=== PATIENT | female | born 1955 | race Caucasian/White ===

== ENCOUNTER 2016-10-28 23:44 | Emergency (ER) | payer MEDICARE ==
[~2016-10-28] VITALS: Ht 175.3 cm; Wt 78.9 kg
[~2016-10-28 23:44] MED LIST: ATIVAN0.5 MG PO; CALCIUM500 MG PO; CEFPODOXIME PR200 MG PO; CIPROFLOXACIN500 MG PO; COUMADIN5 MG; COUMADIN5 MG PO; COUMADIN6 MG PO; CYANOCOBAL1000 MCG/M IM; DIFLUCAN150 MG PO; FLAGYL500 MG PO; FLUCONAZOLE150 MG PO; FUROSEMIDE20 MG PO; GABAPENTIN300 MG PO; HUMIRA40 MG/0.8 SUB-Q; KEFLEX500 MG PO; KLOR-CON 1010 MEQ PO; KLOR-CON20 MEQ PO; LASIX20 MG PO; LEVAQUIN500 MG PO; LEVAQUIN750 MG PO; LEVOFLOXACIN500 MG PO; LIDOCAINE HCL100 ML MT; LIDOCAINE PO; LISINOPRIL20 MG PO; LOPRESSOR PO; LORAZEPAM0.5 MG PO; LOVENOX30 MG SUB-Q; LOVENOX80 MG SUB-Q; MACRODANTIN100 MG PO; METOPROLOL TART25 MG PO; METOPROLOL TART50 MG PO; METRONIDAZOLE500 MG PO; MORPHINE SULFAT15 M1 PO; MORPHINE SULFAT15 MG PO; MORPHINE SULFAT30 M2 PO; NICORETTE2 MG MM; NICOTINE PATCH1 EAC1 TD; NICOTINE PATCH1 EACH TD; NITROFURANTOIN100 M1 PO; NYSTATIN15 GM TOP; OMEPRAZOLE40 MG PO; ORAL ANALGESIC9 GM MT; OXYCODON-ACETA1 EAC2 PO; OXYCONTIN10 MG PO; OXYCONTIN20 MG PO; PERCOCET 5-3251 EACH PO; PERCOCET 7.5-31 EACH PO; POTASSIUM CHLO20 ME1 PO; PREDNISONE10 MG PO; PREDNISONE20 MG PO; PRILOSEC40 MG PO; PRISTIQ ER50 MG PO; PROBIOTIC1 EAC1 PO; PROMETHAZINE HC25 M1 PO; PROMETHAZINE HC25 MG PR; QUESTRAN PACKET4 GM PO; REMICADE100 MG/10 IV; SULFAMETHOXAZO1 EAC1 PO; SULFAZINE500 MG PO; TAMSULOSIN HCL0.4 MG PO; TYLENOL325 MG PO; VITAMIN B125000 MCG IM; VITAMIN B125000 MCG PO/IV/IM; VITAMIN D1000 UNI1 PO; WARFARIN SODIUM6 MG PO; ZOFRAN ODT4 MG SL; [UNRECOGNIZED DRUG - OTHER] INJ
--- OUTSIDE RECORDS SUMMARY | 2016-10-29 02:05 | XMS ---
Demographics + + + | Address | [address] | | | [place] [address] | + + + | Preferred Language | Unknown | + + + | Marital Status | Unknown | + + + | Orthodoxy Affiliation | Unknown | + + + | Race | Unknown | + + + | Ethnic Group | Unknown | + + + Author + + + | Author | [facility] | + + + | Organization | [facility] | + + + | Address | [address] | | | [place] [address] | + + + | Phone | | + + + Care Team Providers + + + + | Care Veterinary Assistant Technician Name | Role | Phone | + + + + Unavailable | Unavailable | + + + + PROBLEMS +---------+ + + +--------+ + + | Type | Condition | ICD9-CM | [id number] | Onset | Condition | SNOMED | | | | Code | Code | Dates | Status | Code | +---------+ + + +--------+ + + | Problem | Essential | | I10 | | Active | [id number] | | | (primary) | | | | | | | | hypertensi | | | | | | | | on | | | | | | +---------+ + + +--------+ + + ALLERGIES + + + + +--------+ | Substance | Reaction | Event Type | Date | Status | + + + + +--------+ | Penicillin | GI UPSET | Drug Allergy | Oct, | Active | + + + + +--------+ | Reglan | hyper | Drug Allergy | Oct, | Active | + + + + +--------+ | Erythromycin | Unknown | Drug Allergy | Oct, | Active | + + + + +--------+ | Dilaudid | Unknown | Drug Allergy | Oct, | Active | + + + + +--------+ | Demerol | vomiting | Drug Allergy | Oct, | Active | + + + + +--------+ SOCIAL HISTORY No smoking Hx information available PLAN OF CARE + +---------+ | Activity | Details | + +---------+ +---+ | | +---+ + + + | Follow Up | 2 Months Reason:null | + + + VITAL SIGNS + + + + | Height | 69 in | 2016-10-20 | + + + + | Weight | 173.2 lbs | 2016-10-20 | + + + + | BMI | 25.57 kg/m2 | 2016-10-20 | + + + + | Temperature | 98.4 degrees Fahrenheit | 2016-10-20 | + + + + | Heart Rate | 91 /min | 2016-10-20 | + + + + | Blood pressure systolic | 142 mm Hg | 2016-10-20 | + + + + | Blood pressure diastolic | 80 mm Hg | 2016-10-20 | + + + + MEDICATIONS + + + + + + + +--------+ | Medicati | Instruct | Dosage | Frequenc | Start | End Date | Duration | Status | | on | ions | | y | Date | | | | + + + + + + + +--------+ | Prometha | | take 1 | | | | 30 | Active | | zine HCl | | tablet | | | | | | | 25 MG | | by mouth | | | | | | | | | three | | | | | | | | | times a | | | | | | | | | day if | | | | | | | | | needed | | | | | | | | | for | | | | | | | | | nausea | | | | | | + + + + + + + +--------+ | Cyanocob | | INJEC 1 | | | | 30 | Active | | alamin | | ML ONCE | | | | | | | 1000 | | EACH | | | | | | | MCG/ML | | MONTH | | | | | | | | | | | | | | | | | | DIRECTED | | | | | | + + + + + + + +--------+ | Macrobid | Orally | 1 | 12h | 02 August, | 27 Apr, | 30 days | Active | | 100 MG | BID | capsule | | 2016 | 2018 | | | | | | with | | | | | | | | | food | | | | | | + + + + + + + +--------+ | Furosemi | Orally | 1 tablet | | | | 30 | Active | | de 20 mg | Once a | | | | | | | | | day, AM | | | | | | | + + + + + + + +--------+ | Metoprol | | take 1 | | | | 30 | Active | | ol | | 1/2 | | | | | | | Tartrate | | tablets | | | | | | | 25 MG | | by mouth | | | | | | | | | twice a | | | | | | | | | day | | | | | | + + + + + + + +--------+ | Omeprazo | | take 1 | | | | 30 | Active | | le 40 MG | | capsule | | | | | | | | | by mouth | | | | | | | | | twice a | | | | | | | | | day | | | | | | + + + + + + + +--------+ | Cefpodox | Orally | 1 tablet | 12h | | | | Active | | eugenio | every 12 | | | | | | | | Proxetil | hrs | | | | | | | | 200 MG | | | | | | | | + + + + + + + +--------+ | Humira | | | | | | | Active | + + + + + + + +--------+ | Mouthwas | | | | | | | Active | | h | | | | | | | | + + + + + + + +--------+ | Percocet | Orally | 2 tablet | | 04 September, | | | Active | | 10-325 | every 8 | | | 2014 | | | | | MG | hrs | | | | | | | + + + + + + + +--------+ | Depend | topical | lin | | Nov, | | 30 | Active | | Easy Fit | q 4 hr | | | 2015 | | | | | | | | | | | | | | Undergar | | | | | | | | | ments | | | | | | | | | large | | | | | | | | | pullups | | | | | | | | + + + + + + + +--------+ | KCL 20 | orally 3 | 1 tablet | | 06 Sep, | | 30 | Active | | mEq | x day | | | 2012 | | | | + + + + + + + +--------+ | Fluconaz | po q day | take 1 | | | | 7 d | Active | | ole 150 | | tablet | | | | | | | MG | | by mouth | | | | | | | | | once | | | | | | | | | daily | | | | | | | | | for 7 | | | | | | | | | days | | | | | | + + + + + + + +--------+ | Warfarin | po in pm | take 2 | | | | 30 | Active | | Sodium | | tablet | | | | | | | 1 MG | | by mouth | | | | | | | | | once | | | | | | | | | daily | | | | | | + + + + + + + +--------+ | PredniSO | | take 1 | | | | 30 | Active | | NE 10 MG | | and 1/2 | | | | | | | | | tablets | | | | | | | | | by mouth | | | | | | | | | once | | | | | | | | | daily | | | | | | + + + + + + + +--------+ RESULTS + +--------+ + + | Name | Result | Date | Reference Range | + +--------+ + + | Sedimentation | | 2016-10-20 | | | Rate-Westergren | | | | + +--------+ + + | Sedimentation | | | | | Rate-Westergren | | | | + +--------+ + + | Comp. Metabolic | | 2016-10-20 | | | Panel (14) | | | | + +--------+ + + | Calcium, Serum | | | | + +--------+ + + | Glucose, Serum | | | | + +--------+ + + | BUN | | | | + +--------+ + + | Protein, Total, | | | | | Serum | | | | + +--------+ + + | Albumin, Serum | | | | + +--------+ + + | Bilirubin, Total | | | | + +--------+ + + | Alkaline | | | | | Phosphatase, S | | | | + +--------+ + + | AST (SGOT) | | | | + +--------+ + + | Potassium, Serum | | | | + +--------+ + + | Sodium, Serum | | | | + +--------+ + + | Chloride, Serum | | | | + +--------+ + + | Creatinine, Serum | | | | + +--------+ + + | ALT (SGPT) | | | | + +--------+ + + | Carbon Dioxide, | | | | | Total | | | | + +--------+ + + | BUN/Creatinine | | | | | Ratio | | | | + +--------+ + + | Globulin, Total | | | | + +--------+ + + | A/G Ratio | | | | + +--------+ + + | CBC | | 2016-10-20 | | + +--------+ + + | WBC | | | | + +--------+ + + | RBC | | | | + +--------+ + + | HEMOGLOBIN | | | | + +--------+ + + | HEMATOCRIT | | | | + +--------+ + + | MCV | | | | + +--------+ + + | MCH | | | | + +--------+ + + | MCHC | | | | + +--------+ + + | RDW | | | | + +--------+ + + | LYMPHOCYTES | | | | + +--------+ + + | NEUTROPHILS | | | | + +--------+ + + | BANDS | | | | + +--------+ + + | MONOCYTES | | | | + +--------+ + + | EOSINOPHILS | | | | + +--------+ + + | BASOPHILS | | | | + +--------+ + + | OTHER | | | | + +--------+ + + | PLATELET COUNT | | | | + +--------+ + + PROCEDURES + + + + + | Procedure | Date Ordered | Related Diagnosis | Body Site | + + + + + | Office Visit, Est | October 20, 2016 | | | | Pt., Level 3 | | | | + + + + + IMMUNIZATIONS No Known Immunizations"
[2016-10-29] MEDS ORDERED: TRAMADOL HCL E100 MG PO (17:07)
[2016-10-29] MEDS ORDERED: KEFLEX500 MG PO (20:01)
[2016-12-30] MEDS ORDERED: K-TAB ER20 MEQ PO (15:01)
[2016-12-30] MEDS ORDERED: NYSTATIN15 G1 TOP (15:02)
== END 2016-10-29 06:10 | disposition home or self-care (01) ==
LOC: ED 23:44
DX: F11.23 Opioid dependence with withdrawal (principal); R11.10 Vomiting, unspecified; R19.7 Diarrhea, unspecified; Z87.440 Personal history of urinary (tract) infections; I10 Essential (primary) hypertension; F17.200 Nicotine dependence, unspecified, uncomplicated; Z90.710 Acquired absence of both cervix and uterus; Z90.49 Acquired absence of other specified parts of digestive tract; Z88.0 Allergy status to penicillin; Z88.1 Allergy status to other antibiotic agents; Z88.5 Allergy status to narcotic agent; Z79.899 Other long term (current) drug therapy; Z79.01 Long term (current) use of anticoagulants; Z79.52 Long term (current) use of systemic steroids; Z79.891 Long term (current) use of opiate analgesic
CPT/HCPCS: 80053; 85025; 96361; 96374; 96375; 96376; 99283; J2270; J2550; J7030

== ENCOUNTER 2016-10-29 16:46 | Emergency (ER) | payer MEDICARE ==
[~2016-10-29] VITALS: Ht 175.3 cm; Wt 79.0 kg
[2016-10-29] MEDS ORDERED: TRAMADOL HCL E100 MG PO (17:07)
[2016-10-29] MEDS ORDERED: KEFLEX500 MG PO (20:01)
[2016-12-30] MEDS ORDERED: K-TAB ER20 MEQ PO (15:01)
[2016-12-30] MEDS ORDERED: NYSTATIN15 G1 TOP (15:02)
== END 2016-10-29 20:44 | disposition home or self-care (01) ==
LOC: ED 16:46
DX: N39.0 Urinary tract infection, site not specified (principal); R19.7 Diarrhea, unspecified; G89.29 Other chronic pain; I10 Essential (primary) hypertension; F17.200 Nicotine dependence, unspecified, uncomplicated; Z90.710 Acquired absence of both cervix and uterus; Z90.49 Acquired absence of other specified parts of digestive tract; Z88.0 Allergy status to penicillin; Z88.1 Allergy status to other antibiotic agents; Z88.8 Allergy status to other drugs, medicaments and biological substances; Z79.899 Other long term (current) drug therapy; Z79.01 Long term (current) use of anticoagulants; Z79.52 Long term (current) use of systemic steroids
CPT/HCPCS: 81001; 87077; 87088; 87186; 96372; 99283; J0696

== ENCOUNTER 2016-11-11 07:43 | Emergency (ER) | payer MEDICARE ==
[~2016-11-11] VITALS: Ht 175.3 cm; Wt 77.1 kg
[~2016-11-11 07:43] MED LIST changes: +TRAMADOL HCL E100 MG PO
[2016-11-11] MEDS ORDERED: TRAMADOL HCL50 MG PO (07:53)
[2016-11-11] MEDS ORDERED: XIFAXAN550 MG PO (10:28)
[2016-12-30] MEDS ORDERED: K-TAB ER20 MEQ PO (15:01)
[2016-12-30] MEDS ORDERED: NYSTATIN15 G1 TOP (15:02)
== END 2016-11-11 11:43 | disposition home or self-care (01) ==
LOC: ED 07:43
DX: K52.9 Noninfective gastroenteritis and colitis, unspecified (principal); I10 Essential (primary) hypertension; F17.200 Nicotine dependence, unspecified, uncomplicated; Z90.710 Acquired absence of both cervix and uterus; Z90.49 Acquired absence of other specified parts of digestive tract; Z88.0 Allergy status to penicillin; Z88.8 Allergy status to other drugs, medicaments and biological substances; Z88.1 Allergy status to other antibiotic agents; Z88.5 Allergy status to narcotic agent; Z79.899 Other long term (current) drug therapy; Z79.891 Long term (current) use of opiate analgesic; Z79.01 Long term (current) use of anticoagulants
CPT/HCPCS: 80053; 85025; 96361; 96374; 96375; 96376; 99283; J2550; J7030

== ENCOUNTER 2016-12-23 10:43 | Emergency (ER) | payer MEDICARE ==
[~2016-12-23] VITALS: Ht 175.3 cm; Wt 77.1 kg
[~2016-12-23 10:43] MED LIST changes: +TRAMADOL HCL50 MG PO; +XIFAXAN550 MG PO
--- OUTSIDE RECORDS SUMMARY | 2016-12-23 11:01 | XMS ---
Demographics + + + | Address | [address] | | | [place] [address] | + + + | Preferred Language | Unknown | + + + | Marital Status | Unknown | + + + | Restoration Affiliation | Unknown | + + + | Race | Unknown | + + + | Ethnic Group | Unknown | + + + Author + + + | Author | [facility] | + + + | Organization | [facility] | + + + | Address | [address] | | | [place] [address] | + + + | Phone | | + + + Care Team Providers + + + + | Care Aircrewman Name | Role | Phone | + + + + Unavailable | Unavailable | + + + + PROBLEMS +---------+ + + +--------+ + + | Type | Condition | ICD9-CM | [id number] | Onset | Condition | SNOMED | | | | Code | Code | Dates | Status | Code | +---------+ + + +--------+ + + | Problem | Essential | | I10 | | Active | [id number] | | | (primary) | | | | | | | | hypertensi | | | | | | | | on | | | | | | +---------+ + + +--------+ + + ALLERGIES Unknown Allergies SOCIAL HISTORY No smoking Hx information available PLAN OF CARE VITAL SIGNS MEDICATIONS Unknown Medications RESULTS No Results PROCEDURES No Known procedures IMMUNIZATIONS No Known Immunizations"
--- OUTSIDE RECORDS SUMMARY | 2016-12-23 11:01 | XMS ---
Demographics + + + | Address | [address] | | | [place] [address] | + + + | Preferred Language | Unknown | + + + | Marital Status | Unknown | + + + | Lutheran Affiliation | Unknown | + + + | Race | Unknown | + + + | Ethnic Group | Unknown | + + + Author + + + | Author | [facility] | + + + | Organization | [facility] | + + + | Address | [address] | | | [place] [address] | + + + | Phone | | + + + Care Team Providers + + + + | Care Value Engineer Name | Role | Phone | + + + + Unavailable | Unavailable | + + + + PROBLEMS +---------+ + + +--------+ + + | Type | Condition | ICD9-CM | [id number] | Onset | Condition | SNOMED | | | | Code | Code | Dates | Status | Code | +---------+ + + +--------+ + + | Problem | Essential | | I10 | | Active | [id number] | | | (primary) | | | [...]
--- OUTSIDE RECORDS SUMMARY | 2016-12-23 11:01 | XMS ---
Demographics + + + | Address | [address] | | | [place] [address] | + + + | Preferred Language | Unknown | + + + | Marital Status | Unknown | + + + | Catholic Affiliation | Unknown | + + + | Race | Unknown | + + + | Ethnic Group | Unknown | + + + Author + + + | Author | [facility] | + + + | Organization | [facility] | + + + | Address | [address] | | | [place] [address] | + + + | Phone | | + + + Care Team Providers + + + + | Care Laborer Dairy Farm Name | Role | Phone | + + + + Unavailable | Unavailable | + + + + PROBLEMS +---------+ + + +--------+ + + | Type | Condition | ICD9-CM | [id number] | Onset | Condition | SNOMED | | | | Code | Code | Dates | Status | Code | +---------+ + + +--------+ + + | Problem | Essential | | I10 | | Active | [id number] | | | (primary) | | | [...] | GI UPSET | Drug Allergy | Nov, | Active | + + + + +--------+ | Reglan | hyper | Drug Allergy | Nov, | Active | + + + + +--------+ | Erythromycin | Unknown | Drug Allergy | Nov, | Active | + + + + +--------+ | Dilaudid | Unknown | Drug Allergy | Nov, | Active | + + + + +--------+ | Demerol | vomiting | Drug Allergy | Nov, | Active | + + + + +--------+ SOCIAL HISTORY No smoking Hx information available PLAN OF CARE + +---------+ | Activity | Details | + +---------+ +---+ | | +---+ + + + | Follow Up | 12/30/2016 at 2:00pm Reason:null | + + + VITAL SIGNS + + + + | Height | 69 in | 2016-12-08 | + + + + | Weight | 177.8 lbs | 2016-12-08 | + + + + | BMI | 26.25 kg/m2 | 2016-12-08 | + + + + | Temperature | 98.7 degrees Fahrenheit | 2016-12-08 | + + + + | Heart Rate | 81 /min | 2016-12-08 | + + + + | Blood pressure systolic | 136 mm Hg | 2016-12-08 | + + + + | Blood pressure diastolic | 78 mm Hg | 2016-12-08 | + + + + MEDICATIONS + [...] Depend | topical | lin | | 11 Nov, | | 30 | Active | | Easy Fit | q 4 hr | | | 2016 | | | | | | | [...] 3 | 1 tablet | | 06 Prashanth, | | 30 | Active | | mEq | x day | | | 2013 | | | | + + + [...] + + + + + +--------+ | B-12 | | | | | | | [...] + + + + + +--------+ | Opium | Orally | 5 ml as | 24h | | | | Active | | Tincture | Once a | needed | | | | | | | | day | | | | | | | | (Paregor | | | | | | | | | ic) 2 | | | | | | | | | MG/5ML | | | | | | | [...] + + + + + +--------+ | Gabapent | Orally | 1 tablet | 8h | | | | Active | | in 600 | Three | | | | | | | | MG | times a | | | | | | | | | day | | | | | | | [...] + + + + + +--------+ RESULTS No Results PROCEDURES + + + + + | Procedure | Date Ordered | Related Diagnosis | Body Site | + + + + + | Office Visit, Est | Dec 08, 2016 | | | | Pt., Level 3 | | | | + + + + + IMMUNIZATIONS No Known Immunizations"
--- OUTSIDE RECORDS SUMMARY | 2016-12-23 11:01 | XMS ---
Demographics + + + | Address | [address] | | | [place] [address] | + + + | Preferred Language | Unknown | + + + | Marital Status | Unknown | + + + | Baptism Affiliation | Unknown | + + + | Race | Unknown | + + + | Ethnic Group | Unknown | + + + Author + + + | Author | [facility] | + + + | Organization | [facility] | + + + | Address | [address] | | | [place] [address] | + + + | Phone | | + + + Care Team Providers + + + + | Care Strapper Operator Name | Role | Phone | + + + + Unavailable | Unavailable | + + + + PROBLEMS +---------+ + + +--------+ + + | Type | Condition | ICD9-CM | [id number] | Onset | Condition | SNOMED | | | | Code | Code | Dates | Status | Code | +---------+ + + +--------+ + + | Problem | Essential | | I10 | | Active | [id number] | | | (primary) | | | [...]
[2016-12-23] MEDS ORDERED: NITROFURANTOIN100 MG PO (13:54)
[2016-12-23] MEDS ORDERED: OXYCONTIN10 MG PO (14:08)
[2016-12-23] MEDS ORDERED: OPIUM10 MG/1 ML PO (14:08)
[2016-12-30] MEDS ORDERED: K-TAB ER20 MEQ PO (15:01)
[2016-12-30] MEDS ORDERED: NYSTATIN15 G1 TOP (15:02)
== END 2016-12-23 14:30 | disposition home or self-care (01) ==
LOC: ED 10:43
DX: K50.90 Crohn's disease, unspecified, without complications (principal); N39.0 Urinary tract infection, site not specified; G89.29 Other chronic pain; I10 Essential (primary) hypertension; F17.200 Nicotine dependence, unspecified, uncomplicated; Z90.710 Acquired absence of both cervix and uterus; Z90.81 Acquired absence of spleen; Z88.5 Allergy status to narcotic agent; Z88.0 Allergy status to penicillin; Z88.8 Allergy status to other drugs, medicaments and biological substances; Z79.899 Other long term (current) drug therapy; Z79.891 Long term (current) use of opiate analgesic; Z79.01 Long term (current) use of anticoagulants
CPT/HCPCS: 80053; 81001; 83605; 83690; 85025; 87077; 87088; 87186; 96361; 96374; 96375; 96376; 99284; J0696; J1200; J1885; J2405; J2550; J7030

== ENCOUNTER 2017-02-11 14:16 | Emergency (ER) | payer MEDICARE ==
[~2017-02-11] VITALS: Ht 175.3 cm; Wt 73.5 kg
[~2017-02-11 14:16] MED LIST changes: +K-TAB ER20 MEQ PO; +NITROFURANTOIN100 MG PO; +NYSTATIN15 G1 TOP; +OPIUM10 MG/1 ML PO
--- OUTSIDE RECORDS SUMMARY | 2017-02-11 17:53 | XMS | Clinical Summary ---
Demographics + + + | Address | [address] | | | [place] [address] | + + + | Home Phone | | + + + | Preferred Language | Unknown | + + + | Marital Status | | + + + | Alevism Affiliation | NRP | + + + | Race | White | + + + | Ethnic Group | Not or | + + + Author + + + | Author | [facility] | + + + | Organization | [facility] | + + + | Address | Unknown | + + + | Phone | Unavailable | + + + Support + + + + + | Name | Relationship | Address | Phone | + + + + + | , Kole Willingham | ECON | [address] | | | | | [place] | | | | | [address] | | + + + + + | Digna Dea | ECON | Unknown | | + + + + + Care Team Providers + +------+-------+ | Care Health Equipment Servicer Name | Role | Phone | + +------+-------+ | Aren Rose DO | PP | tel | + +------+-------+ Source Comments ARTUR is fully live on both EpicCare Ambulatory and EpicCare InPatient.[facility] Allergies + + + + + + | Active Allergy | Reactions | Severity | Noted | Comments | | | | | Date | | + + + + + + | Meperidine (Pf) | | | 03/12/20 | N/V | | | | | 12 | | + + + + + + | Erythromycin | | | 03/12/20 | N/V | | | | | 12 | | + + + + + + | Levofloxacin | | | 03/12/20 | Pt reportedly had | | | | | 12 | tendonitis with | | | | | | therapy. However, | | | | | | had a retrial and | | | | | | had no problems | + + + + + + | Penicillin G | | | 03/12/20 | N/V with oral | | | | | 12 | therapy | + + + + + + | Metoclopramide Hcl | | | 03/12/20 | Pt states she gets | | | | | 12 | wired | + + + + + + Current Medications + + +--------+---------+------+------+-------+ | Prescription | Sig. | Disp. | Refills | Star | End | Statu | | | | | | t | Date | s | | | | | | Date | | | + + +--------+---------+------+------+-------+ | acetaminophen 325 | 2 tablets by feeding | | | 02/0 | | Activ | | mg oral tablet | tube route every | | | 2/20 | | e | | | six hours. | | | 15 | | | + + +--------+---------+------+------+-------+ | metoprolol | 0.75 tablets by | 60 | 3 | 02/0 | | Activ | | tartrate 50 mg oral | feeding tube route | tablet | | 2/20 | | e | | tablet | two times daily. | | | 15 | | | + + +--------+---------+------+------+-------+ | warfarin 7.5 mg | 1 tablet by feeding | 60 | 1 | 02/0 | | Activ | | oral tablet | tube route once | tablet | | 2/20 | | e | | | daily in the | | | 15 | | | | | evening. | | | | | | + + +--------+---------+------+------+-------+ | omeprazole 40 mg | Take 40 mg by mouth | | | | | Activ | | oral capsule,delayed | two times daily. | | | | | e | | | Indications: | | | | | | | release(DR/EC)Indica | GASTROESOPHAGEAL | | | | | | | tions: | REFLUX | | | | | | | gastroesophageal | | | | | | | | reflux disease | | | | | | | + + +--------+---------+------+------+-------+ | cyanocobalamin | 1,000 mcg. | | | | | Activ | | 1,000 mcg/mL | | | | | | e | | injection solution | | | | | | | + + +--------+---------+------+------+-------+ | lisinopril 20 mg | 20 mg. | | | 08/0 | | Activ | | oral tablet | | | | 2/20 | | e | | | | | | 15 | | | + + +--------+---------+------+------+-------+ | LORazepam 0.5 mg | 0.5 mg. | | | | | Activ | | oral tablet | | | | | | e | + + +--------+---------+------+------+-------+ | morphine 15 mg | 15 mg. | | | 08/0 | | Activ | | oral tablet | | | | 2/20 | | e | | | | | | 15 | | | + + +--------+---------+------+------+-------+ | potassium chloride | 20 mEq. If taking | | | | | Activ | | SR 20 mEq oral | lasix | | | | | e | | tablet,ER | | | | | | | | particles/crystals | | | | | | | + + +--------+---------+------+------+-------+ | predniSONE 10 mg | 15 mg. | | | | | Activ | | oral tablet | | | | | | e | + + +--------+---------+------+------+-------+ | promethazine 25 mg | 25 mg. 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 | + + + + + | Overview: Vaccinations given at [facility] pneumonia and flu and | | at [facility] HIB and meningeal coccal 04/25 | + + + + + | Urinary retention | 05/13/2014 | + + + | Hypokalemia | 03/21/2012 | + + + | Pulmonary infiltrates - bilateral, anterior - hemorrhage vs HCAP | 03/21/2012 | + + + | Sepsis (HCC) | 03/19/2012 | + + + + + | Overview: ICD10 | + + + + + | PFO (patent foramen ovale) | 03/16/2012 | + + + | Perirectal abscess | 03/14/2012 | + + + | Iron deficiency anemia | 03/14/2012 | + + + | Leukocytosis | 03/14/2012 | + + + | Thrombocytosis (HCC) | 03/14/2012 | + + + | Popliteal artery thrombosis, 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 | + + + | 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 - need to repeat in | 03/14/2012 | | 3months to confirm | | + + + | Occlusive thrombus | 03/14/2012 | + + + | Hypoalbuminemia | 03/14/2012 | + + + | Hypophosphatemia | 03/14/2012 | + + + | TIA (transient ischemic attack) | 03/14/2012 | + + + | Crohn's disease of both small and large intestine with | 03/12/2012 | | complication (HCC) | | + + + Immunizations + + + + | Name | Dates Previously Given | Next Due | + + + + | Hib-HbOC | 05/10/2014 | | + + + + | MCV4P | 05/10/2014 | | + + + + | Ppd (tuberculin | 03/29/2012 | | | Purified Protein | | | | Derivative) | | | + + + + Family History + + +------+ + | Medical History | Relation | Name | Comments | + + +------+ + | Cancer | Mother | | no colorectal disease in family | + + +------+ + | GI | Son | | Crohn's disease | + + +------+ + + +------+--------+ + | Relation | Name | Status | Comments | + +------+--------+ + | Mother | | | | + +------+--------+ + | Son | | | | + +------+--------+ + Social History + +-------+ +--------+------+ | Tobacco Use | Types | Packs/Day | Years | Date | | | | | Used | | + +-------+ +--------+------+ | Current Every Day | | 1 | 30 | | | Smoker | | | | | + +-------+ +--------+------+ + +---+---+---+ | Smokeless Tobacco: | | | | | Never Used | | | | + +---+---+---+ + + | Tobacco Cessation: Ready to Quit: No | | Comments: vaporizes | + + + + +---------+ + | Alcohol Use | Drinks/We | oz/Week | Comments | | | ek | | | + + +---------+ + | No | 0 | 0.0 | | | | Standard | | | | | drinks or | | | | | | | | | | equivalen | | | | | t | | | + + +---------+ + + + + | Sex Assigned at | Date Recorded | | | | + + + | Not on file | | + + + Last Filed Vital Signs + + + + | Vital Sign | Reading | Time Taken | + + + + | Blood Pressure | 135/69 | 07/28/2015 1:34 PM PDT | + + + + | Pulse | 92 | 07/28/2015 1:34 PM PDT | + + + + | Temperature | 36.8 C (98.2 F) | 07/28/2015 1:34 PM PDT | + + + + | Respiratory Rate | 16 | 07/28/2015 1:34 PM PDT | + + + + | Oxygen Saturation | 96% | 07/28/2015 1:34 PM PDT | + + + + | Inhaled Oxygen | - | - | | Concentration | | | + + + + | Weight | 83.2 kg (183 lb 8 | 07/28/2015 1:34 PM PDT | | | oz) | | + + + + | Height | 175.3 cm (5' 9") | 07/28/2015 1:34 PM PDT | + + + + | Body Mass Index | 27.1 | 07/28/2015 1:34 PM PDT | + + + + Plan of Treatment + + + + + | Health Maintenance | Due Date | Last Done | Comments | + + + + + | INFLUENZA VACCINE | | 04/14/2014 | | | (FLU SHOT) | 7 | | | + + + + + Results Not on filefrom Last 3 Months
== END 2017-02-11 18:45 | disposition short-term general hospital (02) ==
LOC: ED 14:16
PROC: 0T9B70Z Drainage of Bladder with Drainage Device, Via Natural or Artificial Opening (ICD-10-PCS; principal; 2017-02-11)
DX: N39.0 Urinary tract infection, site not specified (principal); K50.90 Crohn's disease, unspecified, without complications; I10 Essential (primary) hypertension; Z90.710 Acquired absence of both cervix and uterus; Z88.5 Allergy status to narcotic agent; Z88.0 Allergy status to penicillin; Z88.1 Allergy status to other antibiotic agents; Z79.01 Long term (current) use of anticoagulants; Z79.899 Other long term (current) drug therapy; Z79.891 Long term (current) use of opiate analgesic; Z79.52 Long term (current) use of systemic steroids; Z88.7 Allergy status to serum and vaccine
CPT/HCPCS: 51701; 74177; 80053; 81001; 83690; 85025; 87077; 87088; 87186; 96365; 96375; 99285; J1956; J2270; J2550; Q9967

== ENCOUNTER 2019-02-11 19:21 | Inpatient (IN) | payer MEDICARE ==
[~2019-02-11] VITALS: Ht 175.3 cm; Wt 59.8 kg
--- OUTSIDE RECORDS SUMMARY | ~2019-02-11 | XMS | Encounter Summary ---
Demographics + + + | Address | [address] | | | [place] [address] | + + + | Home Phone | | + + + | Preferred Language | Unknown | + + + | Marital Status | | + + + | Mormonism Affiliation | NRP | + + + | Race | White | + + + | Ethnic Group | Not or | + + + Author + + + | Author | [facility] | + + + | Organization | [facility] | + + + | Address | Unknown | + + + | Phone | Unavailable | + + + Support + + + + + | Name | Relationship | Address | Phone | + + + + + | Kole Willingham | [place] | [address] | | | | | [place], [place] | | | | | [address] | | + + + + + | Cami Sawyer | ECON | Unknown | | + + + + + Care Team Providers + +------+ + | Care President [employer] Name | Role | Phone | + +------+ + | Aren Rose DO | PCP | | + +------+ + Reason for Visit + + + | Reason | Comments | + + + | Referral To Surgery | | | - General | | + + + Encounter Details +--------+ + + + + | Date | Type | Department | Care Team | Description | +--------+ + + + + | 07/24/ | Abstract | [facility] | Clinic, Surgery | Referral To Surgery | | 2016 | | Center at [facility] [address] | | - General | | | | [address] | | | | | | Mailcode: Center | | | | | | [facility] and | | | | | | [facility], [facility] [address] | | | | | | [place], [place] | | | | | | [address] | | | | | | [phone] | | | +--------+ + + + + Social History + +-------+ +--------+------+ | Tobacco Use | Types | Packs/Day | Years | Date | | | | | Used | | + +-------+ +--------+------+ | Current Every Day | | 1 | 30 | | | Smoker | | | | | + +-------+ +--------+------+ + + +---------+ + | Alcohol Use | Drinks/Week | oz/Week | Comments | + + +---------+ + | No | | | | + + +---------+ + + + + | Sex Assigned at | Date Recorded | | | | + + + | Not on file | | + + + + + + + | Job Start Date | Occupation | Industry | + + + + | Not on file | Not on file | Not on file | + + + + + + + + | Travel History | Travel Start | Travel End | + + + + + + | No recent travel history available. | + + documented as of this encounter Plan of Treatment Not on filedocumented as of this encounter Visit Diagnoses Not on filedocumented in this encounter"
--- OUTSIDE RECORDS SUMMARY | ~2019-02-11 | XMS | Encounter Summary ---
Demographics + + + | Address | [address] | | | [place] [address] | + + + | Home Phone | | + + + | Preferred Language | Unknown | + + + | Marital Status | | + + + | Pentecostal Affiliation | NRP | + + + | Race | White | + + + | Ethnic Group | Not or | + + + Author + + + | Author | [facility] | + + + | Organization | [facility] | + + + | Address | Unknown | + + + | Phone | Unavailable | + + + Support + + + + + | Name | Relationship | Address | Phone | + + + + + | Kole Willingham | [place] | [address] | | | | | [place], [place] | | | | | [address] | | + + + + + | Cami Sawyer | ECON | Unknown | | + + + + + Care Team Providers + +------+ + | Care Data Clerk Name | Role | Phone | + [...] | 2011 | Encounter | [address] [facility] | | | | | | [facility] | | | | | | [facility] | | | | | | [place], [place] | | | | | | [address] | | | | | | [phone] | | | +--------+ + + + [...]
--- OUTSIDE RECORDS SUMMARY | ~2019-02-11 | XMS | Encounter Summary ---
Demographics + + + | Address | [address] | | | [place] [address] | + + + | Home Phone [...] + + + | Author | [facility] | + + + | Organization | [facility] | + + + | Address | Unknown | + + + | Phone | Unavailable | + + + Support + + + + + | Name | Relationship | Address | Phone | + + + + + | Kole Hartley | LAMONT | [address] | | | | | [place], [place] | | | | | [address] | | + + + + + | Cami Sawyer | ECON | Unknown | | + + + + + Care Team Providers + +------+ + | Care Healthcare Administration Internship Name | Role | Phone | + +------+ + | Aren Rose DO | PCP | | + +------+ + Reason for Referral Diagnostic Testing (Routine) +--------+--------+ + + + + | Status | Reason | Specialty | Diagnoses / | Referred By | Referred To | | | | | Procedures | Contact | Contact | +--------+--------+ + + + + | Closed | | Radiology | Procedures | Unique 5a | Rad Ct Scan | | | | | CT PELVIS | Medicine | [facility] [address] | | | | | W IV | [address] | [address] | | | | | CONTRAST | [address] | [address] | | | | | | [address] | Mailcode: | | | | | | [facility] | [address] [facility] | | | | | | [facility] | Hospital | | | | | | [place], [place] | [place], [place] | | | | | | [address] | [address] | | | | | | Phone: | Phone: | | | | | | [phone] | [phone] | | | | | | Fax: | Fax: | | | | | | [phone] | [phone] | +--------+--------+ + + + + Diagnostic Testing (Routine) +--------+--------+ + + + + | Status | Reason | Specialty | Diagnoses / | Referred By | Referred To | | | | | Procedures | Contact | Contact | +--------+--------+ + + + + | Closed | | Radiology | Procedures | Emerson, | Xxrad Vasc | | | | | VASC LAB | Raphael Saab MD | Lab [facility] [address] | | | | | [address] | | [address] | | | | | [address] | | [address] | | | | | WAVEFORM | | Rd Mailcode: | | | | | BILAT | | [id number] | | | | | | | Physician's | | | | | | | Pavilion | | | | | | | [place], [place] | | | | | | | [address] | | | | | | | Phone: | | | | | | | [phone] | | | | | | | Fax: | | | | | | | [phone] | +--------+--------+ + + + + Diagnostic Testing (Routine) +--------+--------+ + + + + | Status | Reason | Specialty | Diagnoses / | Referred By | Referred To | | | | | Procedures | Contact | Contact | +--------+--------+ + + + + | Closed | | Radiology | Procedures | Condron, | Xxrad Vasc | | | | | VASC LAB | Becca Vega MD | Lab [facility] [address] | | | | | VEIN MAPPING | [address] | [address] | | | | | LOWER | [address], | [facility] | | | | | EXTREMITY | [place] [address] | Rd Mailcode: | | | | | BILAT | Phone: | [id number] | | | | | | [phone] | Physician's | | | | | | Fax: | Pavilion | | | | | | [phone] | [place], [place] | | | | | | | [address] | | | | | | | Phone: | | | | | | | [phone] | | | | | | | Fax: | | | | | | | [phone] | +--------+--------+ + + + + Diagnostic Testing (Routine) +--------+--------+ + + + + | Status | Reason | Specialty | Diagnoses / | Referred By | Referred To | | | | | Procedures | Contact | Contact | +--------+--------+ + + + + | Closed | | Radiology | Procedures | Santoyo, | Xxrad Vasc | | | | | VASC LAB | Dariela Saab MD | Lab [facility] [address] | | | | | VENOUS | | [address] | | | | | DUPLEX LOWER | | [address] | | | | | EXTREMITY | | Rd Mailcode: | | | | | BILAT COMP | | [address] | | | | | | | Physician's | | | | | | | [place] | | | | | | | [place], [place] | | | | | | | [address] | | | | | | | Phone: | | | | | | | [phone] | | | | | | | Fax: | | | | | | | [phone] | +--------+--------+ + + + + Diagnostic Testing (Routine) +--------+--------+ + + + + | Status | Reason | Specialty | Diagnoses / | Referred By | Referred To | | | | | Procedures | Contact | Contact | +--------+--------+ + + + + | Closed | | Cardiology | Procedures | Santoyo, | Car Echo | | | | | | Dariela Saab MD | [facility] [address] | | | | | TRANSTHORACI | | [address] | | | | | [facility] | | [address] | | | | | ECHOCARDIOGR | | Mailcode: | | | | | AM, ADULT | | [id number] | | | | | | | [address] | | | | | | | Building | | | | | | | [place], [place] | | | | | | | [address] | | | | | | | Phone: | | | | | | | [phone] | +--------+--------+ + + + + Diagnostic Testing (Routine) +--------+--------+ + + + + | Status | Reason | Specialty | Diagnoses / | Referred By | Referred To | | | | | Procedures | Contact | Contact | +--------+--------+ + + + + | Closed | | Radiology | Procedures | Condron, | Xxrad Vasc | | | | | VASC LAB | Becca Vega MD | Lab [facility]pv [address] | | | | | ARTER DUPLEX | [address] | [address] [facility] | | | | | LOWER | [facility], | [facility] | | | | | EXTREMITY | [place] [address] | Rd Mailcode: | | | | | BILATERAL | Phone: | [id number] | | | | | COMPLETE | [phone] | Physician's | | | | | | Fax: | Pavilion | | | | | | [phone] | [place], [place] | | | | | | | [address] | | | | | | | Phone: | | | | | | | [phone] | | | | | | | Fax: | | | | | | | [phone] | +--------+--------+ + + + + Diagnostic Testing (Routine) +--------+--------+ + + + + | Status | Reason | Specialty | Diagnoses / | Referred By | Referred To | | | | | Procedures | Contact | Contact | +--------+--------+ + + + + | Closed | | Radiology | Procedures | Condron, | Xxrad Vasc | | | | | VASC LAB | Becca Vega MD | Lab [facility] [address] | | | | | CAROTID | [address] | [address] | | | | | DUPLEX | [address], | [place] | | | | | COMPLETE | [place] [address] | Rd Mailcode: | | | | | BILATERAL | Phone: | [id number] | | | | | | [phone] | Physician's | | | | | | Fax: | Pavilion | | | | | | [phone] | [place], [place] | | | | | | | [address] | | | | | | | Phone: | | | | | | | [phone] | | | | | | | Fax: | | | | | | | [phone] | +--------+--------+ + + + + Diagnostic Testing (Routine) +--------+--------+ + + + + | Status | Reason | Specialty | Diagnoses / | Referred By | Referred To | | | | | Procedures | Contact | Contact | +--------+--------+ + + + + | Closed | | Radiology | Procedures | Lenny | Denise Vasc | | | | | VASC LAB | MD Sandoval | Lab [facility] [address] | | | | | ABDOMINAL | | [address] | | | | | DUPLEX COMP | | [address] | | | | | [address] | | Rd Mailcode: | | | | | | | [address] | | | | | | | Physician's | | | | | | | [facility] | | | | | | | [place], [place] | | | | | | | [address] | | | | | | | Phone: | | | | | | | [phone] | | | | | | | Fax: | | | | | | | [phone] | +--------+--------+ + + + + Diagnostic Testing (Routine) +--------+--------+ + + + + | Status | Reason | Specialty | Diagnoses / | Referred By | Referred To | | | | | Procedures | Contact | Contact | +--------+--------+ + + + + | Closed | | Radiology | Procedures | Galvez, | Xxrad Vasc | | | | | VASC LAB | MD Sandoval | Lab [facility] [address] | | | | | ARTER DUPLEX | | [address] | | | | | LOWER | | [address] | | | | | EXTREMITY | | Rd Mailcode: | | | | | BILATERAL | | [address] | | | | | COMPLETE | | Physician's | | | | | | | Pavilion | | | | | | | [place], [place] | | | | | | | [address] | | | | | | | Phone: | | | | | | | [phone] | | | | | | | Fax: | | | | | | | [phone] | +--------+--------+ + + + + Reason for Visit + + + | Reason | Comments | + + + | Thrombosis | | + + + | Other | chrons | + + + AUTH/CERT +--------+--------+ + [...] | +--------+ + + + + | 03/12/ | Hospital | [facility] [address] | [address], | | | 2011 - | Encounter | [address] | [address] | | | | | [address] [facility] | [facility] [place] | | | 04/01/ | | [place], [place] | [address] | | | 2011 | | [address] | [phone] | | | | | [phone] | | | | | | | Chary Doherty, | | | | | | [address] | | | | | | [address] | | | | | | [place], [place] | | | | | | [address] | | | | | | [phone] | | | | | | | | | | | | Xin Rust | | | | | | MD Nena [address] | | | | | | [place] [facility] | | | | | | [place], [place] | | | | | | [address] | | | | | | [phone] | | | | | | | | | | | | Osbaldo Garcia MD | | | | | | [address] | | | | | | [facility], | | | | | | [place] [address] | | | | | | [phone] | | | | | | | [...] + + + | Blood Pressure | 131/78 | 04/01/2012 2:44 PM | | | | | PST | | + + + + + | Pulse | 110 | 04/01/2012 2:44 PM | | | | | PST | | + + + + + | Temperature | 37.5 C (99.5 F) | 04/01/2012 2:44 PM | | | | | PST | | + + + + + | Respiratory Rate | 16 | 04/01/2012 2:44 PM | | | | | PST | | + + + + + | Oxygen Saturation | 95% | 04/01/2012 2:44 PM | | | | | PST | | + + + + + | Inhaled Oxygen | - | - | | | Concentration | | | | + + + + + | Weight | 72 kg (158 lb 11.7 | 03/29/2012 10:45 PM | | | | oz) | PST | | + + + + + | Height | 175.3 cm (5' 9") | 03/19/2012 6:34 AM | | | | | PST | | + + + + + | Body Mass Index | 23.44 | 03/19/2012 6:34 AM | | | | | PST | | + + + + + documented in this encounter Discharge Summaries Raphael Norman - 04/04/2012 3:35 PM PST INPATIENT PHYSICIAN DISCHARGE SUMMARY Attending Physician: Kirit Rust MD PCP: Aren Rose DO Admission Date: 03/12/2012 Discharge Date: 04/01/2012 Diagnoses Principal Final Diagnosis: 1. Crohn's disease 2. Multiple arterial thrombi 3. Amanda-rectal abscess 4. PFO Additional Diagnoses: 1. Peptic ulcer disease 2. Nausea 3. Chronic pain Reason For Admission: Mrs. Mackenzie Hartley is a 56 yo F with long h/o Crohn's disease and TIAs, who after discontinu ing her remicade earlier this year and warfarin several months ago after losing insurance, p resented with crohn's flare, perirectal abscess, and occlusive arterial thrombus of celiac a rtery, right popliteal artery, right posterior and anterior tib arteries, left peroneal, non -occlusive thrombus of infrarenal aorta. She was transferred from an outside hospital over c oncern for ischemic colitis. Hospital Course: Arterial thrombi: the patient was admitted to [facility] from [place] because she presented wit h nausea, bilious vomiting and was found by CT scan to have bowel wall thickening, 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 At arrival to [facility] it was learned that she did NOT indeed have ischemic colitis. 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 She underwent embolectomy on 03/17, which resulted in sabianism of flow and no loss of tissue by ischemia. She was anticoagulated with coumadin bridged with lovenox. A TTE revealed a PFO and thus it was thought that the multiple emboli were coming from the gut. We also investigated for a hypercoagulable condition and found th e lupus inhibitor mixing study was positive. The b2 glycoprotein and anticardiolipin were ne gative. Thus, we believe a repeat study in three months is necessary. Regardless, lifelong a nti-coagulation is necessary. Prior to discharge, she did have a GI bleed so coumadin was he ld, but this was restarted two days prior to discharge and was reaching INR goal of 2.5-3.5 with a lovenox bridge. Crohn's disease: the patient presented with abdominal pain, diarrhea and several arterial e mboli as stated above. Financial difficulty forced her to stop taking remicade as an outpati ent. She had also stopped going to coumadin clinic appointments. Upon arrival she was taking 20mg of prednisone, which she was using as a means to keep the Crohn's calm. Overall the sy mptoms of Crohn's disease was stable during the hospitalization even in the context of fistu lizing disease. 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 However, a CT scan revealed a perirectal abscess on 03/15, which represented untr eated infection. Eventually, this was treated (described below) and remicade was started on the day of discharge 04/01. An EGD and colonoscopy were performed, which demonstrated an inf lamed and friable mucosa of the descending colon. Steroids were slowly tapered and the patie nt was discharged with the remaining doses. Perirectal abscess: By CT scan on 03/15 a 3cm abscess was identified in the right perirectal area. This was a large obstacle to safe treatment of the patient's Crohn's disease. Initial ly, the patient refused all intervention including radiology or surgical drainage. She was s tarted on antibiotics - cipro and flagyl - which was continued throughout the hospitalizatio n. However, vanc/cefepime/flagyl was used instead for a period during which the patient had health care associated pneumonia. The initial CT scan was done on 03/15 and a repeat on 03/24 , which demonstrated a slight improvement in the size of the abscess. Once the patient agree d, radiology was contacted, as well as IR and surgery. The primary team discussed treatment options with each of these services. Infectious disease strongly recommended drainage. On , radiology agreed to drain the abscess but when personnel changed the following day, it was refused. Then, surgery decided to do drainage. The patient's coumadin was reversed on and that evening she had a GI bleed with a HCT drop from 30.1 to 24.4. She was transferr ed to the MICU. Repeat CT scan of the pelvis the following day demonstrated improvement of t he abscess. We had the scan reviewed by several radiologists and the consensus was that ther e was a remnant of an abscess and a fistula but that it was otherwise normal. Thus, no furth er surgical intervention was necessary. GI bleed: On the evening of 03/28, the patient had a large BM with melena. The HCT dropped from 30.1-24.4 and she was transferred to the MICU. She underwent EGD and colonoscopy on , which showed a small hiatal hernia, no ulcers, friable mucosa of right side of colon. No evidence of acute bleed. She received 2 units of FFP and 2 units of PRBCs. After the initia l episode of melena the HCT remained stable. Fevers/ sepsis: the patient started having fevers on 03/20 and an infectious work-up was st arted. She was already receiving cipro and flagyl for the amanda-rectal abscess (and likely so me anti-inflammatory effect on Crohn's) but was transitioned to vancomycin, cefepime and fla gyl to treat a presumed multilobar pneumonia. She initially seemed to improve with this rogerio tment but then started having fevers again. We again continued to search for a source of fev er and wondered if it was because of the abscess. ID thought she might continue to have feve rs because of crohn's or the abscess. She remained on this antibiotic regimen until 03/26 wh en vancomycin was stopped. She continued cefepime and flagyl until she was discharged with a ugmentin. Her last fever was 2200 on 03/24. Depression: the patient demonstrated worsened depression during her stay here. She was disc harged with desvenlafaxine per home regimen. Discharge Medication List as of 04/01/2012 4:41 PM START taking these medications Details amoxicillin-clavulanate 875-125 mg Oral tablet Take 1 Tab by mouth every twelve hours for 1 4 days., Disp-14 Tab, R-0, Print Prescription Desvenlafaxine 50 mg Oral tablet extended release 24 hr Take 1 Tab by mouth once daily., Di sp-30 Tab, R-0, Print Prescription enoxaparin 80 mg/0.8 mL Subcutaneous Syringe Inject 0.8 mL under the skin (SUBC) every twel ve hours for 10 doses., No Print guar gum (BENEFIBER) Oral Packet Take 1 Packet by mouth once daily as needed (constipation, per bowel protocol)., Disp-14 Packet, R-0, Print Prescription morphine 15 mg Oral tablet Take 1 Tab by mouth every four hours as needed., Disp-90 Tab, R- 0, Print Prescription polyethylene glycol 17 gram/dose Oral Powder Take 17 g by mouth once daily as needed (No BM in past 3 days)., Disp-119 g, R-0, Print Prescription CONTINUE these medications which have CHANGED or have new prescriptions Details omeprazole 40 mg Oral capsule,delayed release(DR/EC) Take 1 Cap by mouth two times daily., Disp-60 Cap, R-0, Print Prescription !! predniSONE 2.5 mg Oral tablet Take 1 Tab by mouth once daily for 3 days., Disp-3 Tab, R- 0, Print Prescription !! predniSONE 5 mg Oral tablet Take 1 Tab by mouth once daily for 3 days., Disp-3 Tab, R-0, Print Prescription warfarin 5 mg Oral tablet Take 1 Tab by mouth once daily in the evening., Disp-30 Tab, R-0, Print Prescription !! - Potential duplicate medications found. Please discuss with provider. CONTINUE these medications which have NOT CHANGED Details promethazine 25 mg Oral tablet Take 25 mg by mouth four times daily as needed. , Historica l Med STOP taking these medications codeine 60 mg Oral tablet Comments: Reason for Stopping: lisinopril-hydrochlorothiazide 10-12.5 mg Oral tablet Comments: Reason for Stopping: oxyCODONE-acetaminophen 7.5-325 mg Oral tablet Comments: Reason for Stopping: Diet Regular Regular diet- There are no restrictions to your diet. You may eat or drink whatever you pr efer, though healthy food choices are recommended. 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 Go to the hospital on Tuesday for an INR check. The results should be sent to Dr. Maloney ( Dr. Rose's partner). He will communicate with you about a change in dose if necessary. Th en, on Tuesday you should return to Dr. Rose's office. At that time, you should have an other INR check. Your INR goal should be 2.5-3.0. It is imperative that you continue coumadin to prevent fut ure clots from forming. Please call your GI doctor in [facility] to arrange for your second infusion of remicade. Th is would occur on about April 14 (two weeks after your initial infusion). In one more tue you will receive the next infusion, then every 8 weeks following. Continue taking augmentin until April 14, at which time you may stop it. Please call your doctor immediately if you develop fevers, lightheadedness, worsened abdomi nal pain, headaches. If you go to an ED, please tell them you were on steroids and would probably need a stress dose. It was a pleasure taking care of you while you were here. Outstanding labs/studies: -Repeat anti-phospholipid antibody panel three months from discharge. The patient should al so have a chromogenic factor Xa level checked. This will determine whether or not the INR is truly pharmacy sales representative of anticoagulation. In patients with APLA the INR may be elevated but she is not truly anti-coagulated. The factor Xa level determines this. -Continue steroid taper as directed. -Complete 14 days of augmentin -Continue omeprazole 40mg BID Per GI: Remicade to be done at 2 and 6 weeks then every 8 weeks. The primary team communicated with the office of the patient's PCP regarding follow-up for coumadin. The patient is to have follow up on 04/03 and again on 04/05 to be sure that couma din is therapeutic by then between 2.5 and 3.5. Discharging Physician: RAPHAEL NORMAN MD Attending Physician: Kirit Rust MD documented in th is encounter Medications at Time of Discharge + [...] documented as of this encounter Progress Notes Xin Rust MD - 04/01/2012 10:33 PM [email or web address] Internal Medicine Attending Interval note Hospital day: 20 Patient Active Hospital Problem List: 1) *Sepsis 2) Crohn's disease of both small and large intestine with complication 3) Leukocytosis 4) Hypokalemia 5) Pulmonary infiltrates - bilateral, anterior - hemorrhage vs HCAP 6) Perirectal abscess 7) Iron deficiency anemia 8) Thrombocytosis 9) Popliteal artery thrombosis, right 10) 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 female admitted with chrons flare and perirectal abcess who refuse d drainage of abscess initially then agreed to drainage procedure after almost 2 weeks, but reevaluati on imaging showed resolution of abscess. She had lower gi bleeding recurring brief ICU stay then returned to floor w/o further bleeding and was restarted on TNF-I - 1st dose today. She also was treated for an HCAP, an d finished abxs for that prior to dc. She was taken off coumading for gi bleed and restarted on coumadin with a LMWH bridge. I went over d/c plans including meds, symptoms to watch, and follow up - see d/c instructio ns. I spoke with MD finley for PCP about dc plans yesterday. He will f/u her coumadin with an I NR on Tuesday. KIRIT MD [facility] DEPARTMENT: [id number]- [facility] Faculty PPV Place of Service:- Inpatient Date of Service: 04/01/2012 CSN: [id number] Suggested Modifier: GC Resident Involved: Yes Suggested CPT: 85463- Dishcarge < 30 min Electronically signed by MD sachi Conde 04/01/2012 10:37 PM Debi Yepez MD - 04/01/2012 4:58 AM PST Gastroenterology Follow-Up Note 04/01/2012 IMPRESSION/PLAN: 56 yo woman with small bowel and colon crohn's s/p remote ileocectomy pre viously controlled on Remicade but off due to lack of insurance whose course has been compli cated by arterial thrombosis, lower GI bleeding and perirectal abscess now resolved. 1) Remicade load with 5mg/kg ordered with repeat dosing at 2 and 6 weeks then every 8 wee ks 2) Please monitor for approximately 2 hours following infusion 3) Will premedicate with tylenol and benadryl 4) Continue lovenox BID for thromboses with bridge to coumadin per primary team 5) Continue Cipro/flagyl x 2 weeks for fistulizing disease 6) We would be happy to follow patient in GI clinic if she is interested. Please let us k now and we will arrange follow up. This plan was discussed and formulated with gastroenterology attending, Dr. Barrientos and senior fellow Dr. Kumari. Please call with any questions. Debi Oconnor MD GI/Hepatology Fellow Pager: [phone] INTERVAL HISTORY: MRI abdomen shows no abscess; oral contrast not tolerated so MR enterography not completed Hep B serologies negative PPD negative at 48 hours INPATIENT MEDICATIONS acetaminophen (aka TYLENOL) tablet 650 mg, 650 mg, Oral, PRN ciprofloxacin (aka CIPRO) tablet 750 mg, 750 mg, Oral, BID dextrose IV 25 mL, 25 mL, Intravenous, PRN diphenhydrAMINE (aka BENADRYL) capsule 50 mg, 50 mg, Oral, PRN enoxaparin (aka LOVENOX) injection 80 mg, 80 mg, Subcutaneous, Q12H glucagon (aka GLUCAGEN) injection 1 mg, 1 mg, Intramuscular, PRN glucose chewable tablet 16 g, 16 g, Oral, Q15MIN PRN guar gum (aka BENEFIBER) oral powder 1 Packet, 1 Packet, Oral, DAILY PRN guar gum (aka BENEFIBER) oral powder 1 Packet, 1 Packet, Feeding Tube, DAILY PRN heparin 10 unit/mL IV flush syringe 50 Units, 50 Units, Intravenous, PRN LORazepam (aka ATIVAN) tablet 0.5 mg, 0.5 mg, Oral, Q4H PRN menthol-zinc oxide (aka CALAZIME) topical paste, , Topical, QID PRN metroNIDAZOLE (aka FLAGYL) tablet 500 mg, 500 mg, Oral, TID W/MEALS morphine (aka MS IR) oral dose 22.5 mg, 22.5 mg, Oral, Q4H PRN nystatin (aka MYCOSTATIN) cream, , Topical, BID omeprazole (aka PRILOSEC) capsule 40 mg, 40 mg, Oral, BID polyethylene glycol (aka MIRALAX) powder 17 g, 17 g, Oral, DAILY PRN polyethylene glycol (aka MIRALAX) powder 17 g, 17 g, Feeding Tube, DAILY PRN potassium & sodium phosphates (aka K PHOS NEUTRAL) tablet 500 mg, 500 mg, Oral, BID predniSONE (aka DELTASONE) tablet 2.5 mg, 2.5 mg, Oral, DAILY predniSONE (aka DELTASONE) tablet 5 mg, 5 mg, Oral, DAILY predniSONE (aka DELTASONE) tablet 7.5 mg, 7.5 mg, Oral, DAILY promethazine (aka PHENERGAN) injection 25 mg, 25 mg, Intravenous, Q6H warfarin (aka COUMADIN) tablet 5 mg, 5 mg, Oral, QPM EXAM BP 119/80 | Pulse 106 | Temp 37.1 C (98.7 F) | RR 16 | Ht 1.753 m (5' 9") | Wt 72 kg (1 58 lb 11.7 oz) | SpO2 93% | BMI 23.44 kg/(m^2) Systolic (24hrs), Av mmHg, Min:92 mmHg, Max:119 mmHg Diastolic (24hrs), Av mmHg, Min:68 mmHg, Max:80 mmHg Pulse Av.3 Min: 88 Max: 106 Temp Av.1 C (98.7 F) Min: 37 C (98.6 F) Max: 37.1 C (98.7 F) Resp Av Min: 16 Max: 16 SpO2 Av.7 % Min: 91 % Max: 94 % GEN: NAD, appears well ABD: +bs, s, nt, nd LABS CBC with diff last 72 hours (or 3 results) Recent Labs Basename 03/31/12 0358 03/30/12 1245 03/30/12 0356 WBC 15.9* 20.1* 17.0* HB 9.8* 10.5* 9.9* HCT 30.7* 32.7* 31.1* PLT 450* 494* 471* NEUTROPERC -- -- -- BANDPCT -- -- -- LYMPHPERC -- -- -- MONOPERC -- -- -- BASOPERC -- -- -- EOSPERC -- -- -- Chemistries: Last 72 Hours (or 3 results): Recent Labs Basename 03/31/12 0358 03/30/12 0356 NA 140 141 K 3.9 3.6 CL 104 105 BICARB 29 26 BUN 2* 2* CR 0.71 0.55* CA 8.4* 8.2* MG 1.9 1.4* PO4 -- -- Lab Results Component Value Date INRPT 1.11 03/31/2012 IMAGING MRI abdomen FINDINGS: ABDOMEN: Visualized liver is unremarkable. Gallbladder surgically absent. Visualized pancreas, adrenal glands, and kidneys are unremarkable. Spleen is scarred as before. PELVIS: Bladder is unremarkable. Rectosigmoid wall thickening persists, with persistent perirectal inflammatory changes corresponding to known perirectal sinus tract due to underlying inflammatory bowel disease/Crohn's.. Neoterminal ileal wall thickening and perienteric stranding again noted near the ileocolic anastomosis following ileocecectomy, in keeping with regional enteritis/Crohn's. IMPRESSION: Limited study. No change from CT of 03/28/2012. Xin De La Rosa MD - 03/31/2012 11:45 PM [id number] Internal Medicine Attending Interval note Hospital day: 19 Patient Active Hospital Problem List: 1) *Sepsis 2) Crohn's disease of both small and large intestine with complication 3) Leukocytosis 4) Hypokalemia 5) Pulmonary infiltrates - bilateral, anterior - hemorrhage vs HCAP 6) Perirectal abscess 7) Iron deficiency anemia 8) Thrombocytosis 9) Popliteal artery thrombosis, right 10) Thrombophilia ASSESSMENT and RECOMMENDATIONS: Patient Active Hospital Problem List: Sepsis (03/19/2012) Crohn's disease of both small and large intestine with complication (03/12/2012) Leukocytosis (03/14/2012) Assessment: ppd neg so far, hep b serology neg except evidence for past immunization, kailash n to start remicade tomorrow if ok with GI then dc Perirectal abscess (03/14/2012) Assessment: after discussion with radiologists - abscess appears resolved Popliteal artery thrombosis, right (03/14/2012) Thrombophilia (03/14/2012) Assessment: discussed lupus anticoagulant inhibitor and need for bridging for procedures bc of high risk of emboli, I called Dr. Rodriges (production line solderer for her PCP) to coordinate f/u of h er INR on Tuesday and possible adjustment of coumadin I spent a total of 45 mins on care of this patient today - >50% spent on education and coun selling with pt about her hospital course, discussing new dx of likely hypercoaguable state and likely lupus anticoagualant inhibitor, addressing her fears and talking detail about her depression and options for treatment and also coordination of care with radiology about fin dings of MRI, adequacy of study and question of abscess resolution and with PCP's office. I personally interviewed the patient, performed the gunter elements of the physical examinatio n, and personally formulated the assessment and plan with the resident. I agree with the res ident's documentation and have noted any additions above. KIRITMarisa RUST MD [facility] DEPARTMENT: [id number]- [facility] Faculty PPV Place of Service:- Inpatient Date of Service: 03/31/2012 CSN: [id number] Suggested Modifier: Resident Involved: Yes Suggested CPT: 62701- Subsequent, Detailed/high complex, 35 min Davonte De La Rosa MD - 03/31/2012 7:17 AM PSTI personally interviewed the patient, performed the perti nent parts of the physical examination and personally formulated the plan with the resident. I agree with the MS4 documentation and have documented any additions or exceptions in my p rogress note. Joaquin Hui - 03/31/2012 7:17 AM PST Medicine Progress Note Refer to Attending and Resident Notes for Assessment and Plan Hospital Day # 19 Patient:Mackenzie Hartley, Attending: Xin Rust MD Author:VIVIANA Steele ID: Mackenzie Hartley is a 56 y.o. woman with untreated Chron's flair complicated by fistulas, mu ltivessel thrombi, PFO, HCAP and LGIB. 24 Hour Events: Phenergan x 4 Ativan x 4 Morphine 22.5 mg every 4hrs since noon yesterday Trazodone 50 mg x 1 Subjective: No fevers/chills, no lightheadedness, anxious, tearful, no CP, no SOB, denies abdominal glenys n, good PO, good UOP, and BM x 2 loose brown stool. - Current Inpatient Medications Medication Dose Route Frequency acetaminophen (aka TYLENOL) tablet 650 mg 650 mg Oral PRN ciprofloxacin (aka CIPRO) tablet 750 mg 750 mg Oral BID dextrose IV 25 mL 25 mL Intravenous PRN diphenhydrAMINE (aka BENADRYL) capsule 50 mg 50 mg Oral PRN enoxaparin (aka LOVENOX) injection 80 mg 80 mg Subcutaneous Q12H esomeprazole (aka NEXIUM) IV infusion 8 mg/hr Intravenous CONTINUOUS glucagon (aka GLUCAGEN) injection 0.5 mg 0.5 mg Intravenous In Radiology glucagon (aka GLUCAGEN) injection 1 mg 1 mg Intramuscular PRN glucose chewable tablet 16 g 16 g Oral Q15MIN PRN guar gum (aka BENEFIBER) oral powder 1 Packet 1 Packet Oral DAILY PRN Or guar gum (aka BENEFIBER) oral powder 1 Packet 1 Packet Feeding Tube DAILY PRN heparin 10 unit/mL IV flush syringe 50 Units 50 Units Intravenous PRN LORazepam (aka ATIVAN) tablet 0.5 mg 0.5 mg Oral Q4H PRN menthol-zinc oxide (aka CALAZIME) topical paste Topical QID PRN metroNIDAZOLE (aka FLAGYL) tablet 500 mg 500 mg Oral TID W/MEALS morphine (aka MS IR) oral dose 22.5 mg 22.5 mg Oral Q4H PRN nystatin (aka MYCOSTATIN) cream Topical BID polyethylene glycol (aka MIRALAX) powder 17 g 17 g Oral DAILY PRN Or polyethylene glycol (aka MIRALAX) powder 17 g 17 g Feeding Tube DAILY PRN potassium & sodium phosphates (aka K PHOS NEUTRAL) tablet 500 mg 500 mg Oral BID predniSONE (aka DELTASONE) tablet 2.5 mg 2.5 mg Oral DAILY predniSONE (aka DELTASONE) tablet 5 mg 5 mg Oral DAILY predniSONE (aka DELTASONE) tablet 7.5 mg 7.5 mg Oral DAILY promethazine (aka PHENERGAN) injection 25 mg 25 mg Intravenous Q6H warfarin (aka COUMADIN) tablet 5 mg 5 mg Oral QPM EXAM: 24 Hour Vital Min/Max: Last Vitals: BP 127/67 | Pulse 99 | Temp 37.3 C (99.1 F) | RR 16 | Ht 1.753 m (5' 9") | Wt 72 kg (158 lb 11.7 oz) | SpO2 94% | BMI 23.44 kg/(m^2): Temp Av.3 C (99.1 F) Min: 37.3 C (99.1 F) Max: 37.3 C (99.1 F) Systolic (24hrs), Av mmHg, Min:127 mmHg, Max:127 mmHg Diastolic (24hrs), Av mmHg, Min:67 mmHg, Max:67 mmHg Pulse Av Min: 99 Max: 99 Resp Av Min: 16 Max: 16 SpO2 Av % Min: 94 % Max: 94 % Intake/Output Summary (Last 24 hours) at 03/31/12 0718 Last data filed at 03/31/12 0600 Gross per 24 hour Intake 1240 ml Output 900 ml Net 340 ml Body mass index is 23.44 kg/(m^2). Physical: General: appears appropriate age, laying in bed, ill but nontoxic, Lungs: no increased work of breathing , speaking full sentences, improved bibasilar early i nspiratory rales Heart: regular rate and rhythm, no murmurs, gallops or rubs Abdomen: non distended, NBS, NTTP Extremities: right lower extremity thrombectomy incision site CDI, no erythema. R nonpalpab le dorsalis pedis but warm Psych: frustrated, tearful CBC with diff last 72 hours (or 3 results) Recent Labs Basename 03/31/12 0358 03/30/12 1245 03/30/12 0356 WBC 15.9* 20.1* 17.0* HB 9.8* 10.5* 9.9* HCT 30.7* 32.7* 31.1* PLT 450* 494* 471* NEUTROPERC -- -- -- BANDPCT -- -- -- LYMPHPERC -- -- -- MONOPERC -- -- -- BASOPERC -- -- -- EOSPERC -- -- -- Chemistries: Last 72 Hours (or 3 results): Recent Labs Basename 03/31/12 0358 03/30/12 0356 03/29/12 0442 03/28/12 1648 NA 140 141 142 -- K 3.9 3.6 3.7 -- CL 104 105 109* -- BICARB 29 26 25 -- BUN 2* 2* 2* -- CR 0.71 0.55* 0.51* -- GLU 94 116* 88 -- CA 8.4* 8.2* 8.0* -- MG 1.9 1.4* 1.5* -- PO4 -- -- -- 2.3* Liver Tests: Last 72 hours (or 3 results) No results found for this basename: AST:3,ALT:3,TBILI:3,AP:3,ALB:3,TP:3 in the last 72 hour s Lab Results Component Value Date INRPT 1.11 03/31/2012 Imaging: MRI Abd wo contrast 03/30/12 - per phone conversation with Dr. Hernandes and Dr. Hobbs: prior read on CT of perirectal absc ess is actually a perirectal fistulating tract Acute Active Problem List 1. Chron's flair, subacute 2. LGIB, acute no new events 3. Thrombophilia, chronic no new events 4. Pain, general subacute 5. Nausea, acute and episodic 6. Depression/Anxiety, acute on chronic 7. GERD, chronic 8. Disposition, tentatively this Tuesday Assessment and Plan: Mackenzie Hartley is a 56 y.o. woman with untreated Chron's flair complicate d by fistulas, multivessel thrombi, PFO, and LGIB. #Crohn's Disease/flare - Preliminary pathology per GI report: chronic active colitis in ri ght side of colon without ischemic injury and CMV negative. Has fistulizing disease with LG IB requiring 2U pRBC and 2U FFP. Hb improving and VSS. Colonoscopy unable to get past cecal valve because of active inflammation in the proximal cecum/enteric fistula. Patient not abl e to tolerate oral contrast and could not assess extent of chron's disease with MR enterogra phy/pelvis, but noted by phone conversation with radiology that perirectal abscess is actual ly a tracking fistula. HBV neg and pending PPD, GI will procede with Remicade loading . Stabilizing electrolyte dyscrasias with better PO intake. K and Mg have trended down throughout admission, likely from diarrhea and chron's flair. Does not complain of myalgias. - - Appreciate GI and ID recs: - - F/U PPD, prevent reactivation if present prior to starting TNF alpha inhibitor - - F/U colonic mucosa adenovirus staining - - tapering off non-therapeutic dose of prednisone 03/23/12 - - continue Cipro and Flagyl - - K Phos neutral PO BID - - recheck KCl and Mg and replete if necessary #LGIB: Melena, followed by hematochezia on the 03/28 with Hct drop 30.1 to 24.2 and respons brady to 2u pRBC and FFP. Hct stable now in the low 30s. No new episodes of blood loss. EGD di d not demonstrate active UGIB. - - Monitor H/H and BM - - transfusion goal: Hct>21 #Thrombophilia - Multi-vessel thrombi on admission, no new events on life time warfarin. TT E shows right to left PFO, thrombectomy with vascular surgery of right popliteal without com plications, right foot now warmer. INR not at therapeutic range, currently bridging with Edwin enox. CTA and CT shows no new emboli, SMA patent and celiac occluded. Lupus inhibitor evalua tion positive for elevated PTT, suggestive of inhibitor in mixing study. Chron's disease is also associated with hypercoagulable state: J Gastroenterol. 2004 Jan;39(10):948-54. PubMed PMID: [id number]. Consulted [facility] for further studies on platelet inhibitor and recommend repea ting in 6 months. No new evidence of thrombosis on exam, but lung opacities concerning for a lveolar hemorrhage while on warfarin. - - doppler pulses - - Warfarin, bridging with Lovenox. #Depression/Anxiety - Increasing in the setting of hospitalization for complicated medical care, has a history of depression, tearful today and does not sleep well. 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 Depressed about not being a nurse, and having no insurance. Wanting to go home for [place]. Nurse repor ts that she has admitted to using phenergan and ativan to sleep. - - Consider discontinuing Ativan 0.5mg Q6H PRN, has developed tolerance - - Consider discharging on SSRI with close F/U with PCP. #Nausea - Improving , does not tolerate Flagyl, and complains of metallic taste, Morphine a lso contributing to nausea. Avoid anti-emetics with high risk of LQTS. - - Scheduled Phenegran 25 mg Q6H, and wake up (patient insists on 50 mg, PCP staff reporte d that was only a one time administration with Remicade) #Pain, subacute - denies any pain today, likely more a component of depression and anxiety. Transition to oral analgesia. - - tylenol 650mg Q6H - - Morphine IR 22.5mg PO Q4H #GERD - esomeprazole IV with the work up for GIB, consider discontinuing and restarting ome prazole BID. #Disposition: Likely discharge after anti-TNF alpha treatment Tuesday on warfarin and Love nox bridge with F/U PCP. Not adhering to appointments and insurance coverage her largest iss ue. Appreciate CM looking for other options of care since patient has income that does not q ualify for 8hands. F/E/N Thrombosis ppx: Warfarin, Lovenox bridge Glucose: not indicated Diet: regular Code: Do Not Resuscitate/Do Not Intubate This patient was seen with [facility], refer to Attending and Resident notes for assessment and pl an. Nuñez [place], Sub-Manager Sales And Marketing Pgr: [id number] Ajay De La Rosa MD - 03/30/2012 11:39 PM PST3 Internal Medicine Attending Interval note - LATE ENTRY Hospital day: 18 Patient Active Hospital Problem List: 1) *Sepsis 2) Crohn's disease of both small and large intestine with complication 3) Leukocytosis 4) Hypokalemia 5) Pulmonary infiltrates - bilateral, anterior - hemorrhage vs HCAP 6) Perirectal abscess 7) Iron deficiency anemia 8) Thrombocytosis 9) Popliteal artery thrombosis, right 10) Thrombophilia 11) Hypoalbuminemia 12) Hypophosphatemia 13) Occlusive thrombus 14) TIA (transient ischemic attack) 15) PFO (patent foramen ovale) ASSESSMENT and RECOMMENDATIONS: Patient Active Hospital Problem List: Sepsis (03/19/2012) Perirectal abscess (03/14/2012) Crohn's disease of both small and large intestine with complication (03/12/2012) Assessment: repeat CT showed "no drainable abscess" so appears to have resolved and we ca n move forward with starting TNF-I, once hep B serology and PPD confirmed negative Pt pushing to move forward and get home before xmas, she is tired of being in hospital. Af ter explanation she understands PPD must be read negative at 48+h... Encouraging though that she remains afeb and WBC stable in 16-20k range (admit was 40+k) Thrombophilia (03/14/2012) Assessment: working out details of LMWH bridge after d/c until coumading therapeutic with intensive care anaesthetist through medication assistance program Hypoalbuminemia (03/14/2012) Assessment: PO intake much improved, still nausea but 25mg phenergan doses are helping I spent a total of 35 mins on care of this patient today - >50% spent on education and coun selling with pt and on medical issues and plans for care leading up to dc, hopefully this weekend. I personally interviewed the patient, performed the gunter elements of the physical examinatio n, and personally formulated the assessment and plan with the resident on 03/30/12. I agree with the resident's documentation and have noted any additions above. KIRIT MD YOCASTA [facility] DEPARTMENT: [id number]- [facility] Faculty PPV Place of Service:- Inpatient Date of Service: 03/30/2012 CSN: [id number] Suggested Modifier: Resident Involved: Yes Suggested CPT: 81866- Subsequent, Detailed/high complex, 35 min Debi Yepez MD - 03/30/2012 5:29 PM PSTPrelim path results discussed with pathologist. Evidence of ch ronic, inactive colitis in rectum, active colitis in right side of colon without e/o ischemi c injury with CMV negative. Final results pending. Adenovirus staining pending. Hep serol ogies negative. Once PPD is read as negative, can reload with Remicade. Will need to monit or pt for 2-4 hours post infusion to ensure no infusion reaction. We will continue to follow closely Shaun [facility]EED [facility] Fellow Pg [id number] signed by Debi Oconnor MD at 03/30/2012 5:32 PM PSTJacoby Tovar MD - 03/30/2012 10:25 AM PSTFormatting of this note might be different from the origi nal. [facility] DEPARTMENT OF SURGERY Daily Progress Note PROGRESS NOTE: Attending Physician: Xin Rust MD 03/31/2012 Subjective/Overnight Events: - latest CT shows resolution of abscess - no GI bleeding - no rectal/anal pain - tolerating reg diet MEDICATIONS: Reviewed in [facility] VITAL SIGNS: Refer to [facility] Intake/Output Summary (Last 24 hours) at 03/31/12 1026 Last data filed at 03/31/12 0900 Gross per 24 hour Intake 1220 ml Output 900 ml Net 320 ml PHYSICAL EXAM: General: Alert and oriented, NAD Rectal deferred LABS: Chemistries Recent Labs Basename 03/31/12 0358 03/30/12 0356 03/29/12 0442 03/28/12 1648 NA 140 141 142 -- K 3.9 3.6 3.7 -- CL 104 105 109* -- BICARB 29 26 25 -- BUN 2* 2* 2* -- CR 0.71 0.55* 0.51* -- GLU 94 116* 88 -- CA 8.4* 8.2* 8.0* -- MG 1.9 1.4* 1.5* -- PO4 -- -- -- 2.3* AST -- -- -- -- ALT -- -- -- -- AP -- -- -- -- TBILI -- -- -- -- ALB -- -- -- -- CBC with diff Recent Labs Basename 03/31/12 0358 03/30/12 1245 03/30/12 0356 WBC 15.9* 20.1* 17.0* HB 9.8* 10.5* 9.9* HCT 30.7* 32.7* 31.1* PLT 450* 494* 471* NEUTROPERC -- -- -- BANDPCT -- -- -- LYMPHPERC -- -- -- MONOPERC -- -- -- BASOPERC -- -- -- EOSPERC -- -- -- ASSESSMENT AND PLAN: Mackenzie Hartley is a 56 y.o. female with long-standing Crohn's c/b perirectal abscess, recent G I bleed now stable and abscess resolved. - ok to resume reg diet and anticoagulation - medical management of Crohn's per GI - Surgery will sign off. Please do not hesitate to contact us with any further questions or concerns. Jacoby Tovar MD Surgery, R2 Diagnoses: [id number] Crohn disease This assessment and plan was formulated independently and in conjunction with the Surgical team as well as the attending provider listed above. Chago De La Rosa MD - 03/30/2012 7:51 AM PSTI personally interviewed the patient, performed the pertine nt parts of the physical examination and personally formulated the plan with the resident. I agree with the MS4 documentation and have documented any additions or exceptions in my pro su note. Joaquin Hui - 03/30/2012 7:51 AM PST Medicine Progress Note Refer to Attending and Resident Notes for Assessment and Plan Hospital Day # 18 Patient:Mackenzie Hartley, Attending: Xin Rust MD Author:VIVIANA Steele ID: Mackenzie Hartley is a 56 y.o. female with untreated Chron's flair complicated by fistulas, m ultivessel thrombi, PFO, HCAP and LGIB. 24 hour events: Transferred from MICU after EDG and colonoscopy for GIB Subjective: Upset this morning, wants the team to move along and have a plan. Venting frustrations. I n the afternoon, team discussed with patient and her the plan laid forth with GI's r ecommendations for likely Remicade treatment this weekend. Made aware of the benefit of rec eiving care for her fistulating Chron's flair. Patient agreed to stay. Discussed with her PCP staff who reported difficulties in care, poor compliance to Remicade , warfarin, INR checks and F/U before loosing health insurance. Today patient has no lightheadedness, no SOB, no chest pain, well controlled abdominal pain , minor positional pain of right IRA, good PO, normal BM, good UOP, and ambulating. Current Inpatient Medications Medication Dose Route Frequency acetaminophen (aka TYLENOL) tablet 650 mg 650 mg Oral PRN ciprofloxacin (aka CIPRO) tablet 750 mg 750 mg Oral BID dextrose IV 25 mL 25 mL Intravenous PRN diphenhydrAMINE (aka BENADRYL) capsule 50 mg 50 mg Oral PRN enoxaparin (aka LOVENOX) injection 80 mg 80 mg Subcutaneous Q12H esomeprazole (aka NEXIUM) IV infusion 8 mg/hr Intravenous CONTINUOUS glucagon (aka GLUCAGEN) injection 1 mg 1 mg Intramuscular PRN glucose chewable tablet 16 g 16 g Oral Q15MIN PRN guar gum (aka BENEFIBER) oral powder 1 Packet 1 Packet Oral DAILY PRN Or guar gum (aka BENEFIBER) oral powder 1 Packet 1 Packet Feeding Tube DAILY PRN heparin 10 unit/mL IV flush syringe 50 Units 50 Units Intravenous PRN LORazepam (aka ATIVAN) tablet 0.5 mg 0.5 mg Oral Q4H PRN menthol-zinc oxide (aka CALAZIME) topical paste Topical QID PRN metroNIDAZOLE (aka FLAGYL) tablet 500 mg 500 mg Oral TID W/MEALS morphine (aka MS IR) oral dose 22.5 mg 22.5 mg Oral Q4H PRN nystatin (aka MYCOSTATIN) cream Topical BID polyethylene glycol (aka MIRALAX) powder 17 g 17 g Oral DAILY PRN Or polyethylene glycol (aka MIRALAX) powder 17 g 17 g Feeding Tube DAILY PRN potassium & sodium phosphates (aka K PHOS NEUTRAL) tablet 500 mg 500 mg Oral BID predniSONE (aka DELTASONE) tablet 2.5 mg 2.5 mg Oral DAILY predniSONE (aka DELTASONE) tablet 5 mg 5 mg Oral DAILY predniSONE (aka DELTASONE) tablet 7.5 mg 7.5 mg Oral DAILY promethazine (aka PHENERGAN) injection 25 mg 25 mg Intravenous Q6H warfarin (aka COUMADIN) tablet 5 mg 5 mg Oral QPM EXAM: 24 Hour Vital Min/Max: Last Vitals: BP 127/67 | Pulse 99 | Temp 37.3 C (99.1 F) | RR 16 | Ht 1.753 m (5' 9") | Wt 72 kg (158 lb 11.7 oz) | SpO2 94% | BMI 23.44 kg/(m^2): Temp Av.2 C (98.9 F) Min: 36.9 C (98.5 F) Max: 37.5 C (99.5 F) Systolic (24hrs), Av mmHg, Min:110 mmHg, Max:138 mmHg Diastolic (24hrs), Av mmHg, Min:67 mmHg, Max:83 mmHg Pulse Av.9 Min: 90 Max: 119 Resp Av.5 Min: 12 Max: 23 SpO2 Av.6 % Min: 90 % Max: 99 % Intake/Output Summary (Last 24 hours) at 03/30/12 0752 Last data filed at 03/30/12 0600 Gross per 24 hour Intake 2873 ml Output 4200 ml Net -1327 ml Body mass index is 23.44 kg/(m^2). Physical: General: appears appropriate age, laying in bed, ill but nontoxic, Lungs: no increased work of breathing , speaking full sentences, bibasilar early inspirator y rales, R mid inspiratory crackles improved up to mid lung field. Heart: regular rate and rhythm, no murmurs, gallops or rubs Abdomen: non distended, NBS, NTTP Extremities: right lower extremity thrombectomy incision site CDI, no erythema. R nonpalpab le dorsalis pedis but warm Psych: frustrated, tearful CBC with diff last 72 hours (or 3 results) Recent Labs Basename 03/30/12 0356 03/29/12 0442 03/28/12 2357 WBC 17.0* 14.2* 15.1* HB 9.9* 9.7* 9.7* HCT 31.1* 30.3* 30.5* PLT 471* 490* 551* NEUTROPERC -- -- -- BANDPCT -- -- -- LYMPHPERC -- -- -- MONOPERC -- -- -- BASOPERC -- -- -- EOSPERC -- -- -- Chemistries: Last 72 Hours (or 3 results): Recent Labs Basename 03/30/12 0356 03/29/12 0442 03/28/12 1653 03/28/12 1648 03/28/12 0644 NA 141 142 -- -- 144 K 3.6 3.7 -- -- 3.5 CL 105 109* -- -- 113* BICARB 26 25 -- -- 23 BUN 2* 2* -- -- 4* CR 0.55* 0.51* -- -- 0.52*|0.52* GLU 116* 88 121* -- -- CA 8.2* 8.0* -- -- 7.4* MG 1.4* 1.5* -- 1.5* -- PO4 -- -- -- 2.3* -- Lab Results Component Value Date INRPT 1.26* 03/30/2012 Diagnostic Studies: "EGD- 1. 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 5cm hiatal hernia 3. Normal stomach 4. Normal duodenal bulb, duodenum and distal duodenum/proximal jejunum Colonoscopy- 1. At least one healing fistula tract seen on external inspection, no fluctuance, no clear abscess 2. Short rectal stricture 3. Normal colonic mucosa until right side of colon where there was an abrupt transition alanis r what appeared to be the cecum vs previous anastomosis with erythematous, ulcerated mucosa with overlying exudate and stool that could no be completely dislodge; very friable mucosa w ith loss of vascularity s/p random biopsies 4. Unable to traverse into small bowel past area of erythema 5. On retroflexion, one healing fistula tract was identified; also seen on retroflexion was a 1cm nodule that was biopsied" CT: demonstrated decompression of periirectal abscess CTA and CT scan showed no new changes: patent SMA, chronically occluded celiac. Acute Active Problem List 1. Chron's flair, subacute 2. LGIB, acute no new events 3. Thrombophilia, chronic no new events 4. Pain, general subacute 5. Nausea, acute and episodic 6. Anxiety, acute on chronic 7. GERD, chronic 8. HCAP, multilobular, therapeutic resolution 9. Disposition, tentatively this Tuesday Assessment and Plan: Mackenzie Hartley is a 56 y.o. Female with untreated Chron's flair complica laxmi by fistulas, multivessel thrombi, PFO, and LGIB. #Crohn's Disease/flare - Amanda-rectal abscess resolved and may consider starting immunosuppr ession for Crohn's. Has fistulizing disease with LGIB requiring 2U pRBC and 2U FFP. Hb impr oving and VSS. Colonoscopy unable to extend view past cecal valve because of active inflamm ation in the proximal cecum/enteric fistula. Stabilizing electrolyte dyscrasias with better PO intake. K and Mg continue to down trend likely from diarrhea and chron's flair. Does no t complain of myalgias. - - Appreciate GI and ID recs: tentative TNF-alpha inhibitor treatment Tuesday - - MR enterography and MRI pelvis WWO contrast - - F/U PPD and HBV studies, prevent reactivation if present prior to starting TNF alpha in hibitor - - F/U colonic mucosa bx - - tapering off non-therapeutic dose of prednisone 03/23/12 - - continue Cipro and Flagyl - - K Phos neutral PO BID - - recheck KCl and Mg and replete if necessary #LGIB: Melena, followed by hematochezia on the 03/28 with Hct drop 30.1 to 24.2 and respon sive to 2u pRBC and FFP. Hct stable now in the low 30s and uptrending. No new episodes of blood loss. EGD did not demonstrate active UGIB. - - Monitor H/H and BM - - transfusion goal: Hct>21 #Thrombophilia - Multi-vessel thrombi on admission, no new events on life time warfarin. T TE shows right to left PFO, thrombectomy with vascular surgery of right popliteal without co mplications, right foot now warmer. INR at therapeutic range. CTA and CT shows no new emboli , SMA patent and celiac occluded. Lupus inhibitor evaluation positive for elevated PTT, sug gestive of inhibitor in mixing study. Chron's disease is also associated with hypercoagulabl e state: J Gastroenterol. 2004 Jan;39(10):948-54. PubMed PMID: [id number]. Consulted Heme for further studies on platelet inhibitor and recommend repeating in 6 months. No new evidence o f thrombosis on exam, but lung opacities concerning for alveolar hemorrhage while on warfari n. - - doppler pulses - - d/c heparin GGT, reversible in the setting of GI bleed - - Restarting Warfarin, bridging with Lovenox. #Pain, subacute - abdominal pain from Chron's flair and multivessel thombii. Musculoskeleta l pain from R popliteal thrombectomy. Controlled on current treatment. High use of narcotics , reported history of diversion. Transition to oral analgesia. - - tylenol 650mg Q6H - - discontinue Morphine IV - - start Morphine IR 22.5mg PO Q4H #Nausea - Improving, does not tolerate Flagyl, and complains of metallic taste, Morphine a lso contributing to nausea. Avoid anti-emetics with high risk of LQTS. - - Scheduled Phenegran 25 mg Q6H, and wake up patient #Anxiety - Improving in the setting of hospitalization for complicated medical care, has a history of depression, tearful today and does not sleep well - - Ativan 0.5mg Q6H PRN, for anxiety but likely to treat nausea as well #GERD - esomeprazole IV with the work up for GIB, consider discontinuing and restarting ome prazole #HCAP, multilobular therapeutic resolution: Completed Cefepime seven day course. CXR shows anterior bilateral opacities consistent with HCAP, rapidly improving RUL CXR 03/19 and new L ML CXR 03/22 . The differential includes alveolar hemorrhage in the setting of reaching ther apeutic warfarin. Improving and no purulent cough with O2 saturation in the upper 90s on RA. WBC dramatic down trended and now stable. Has atelectasis but with improved bibasilar ins piratory rales. No SOB. Reports using IS. #Disposition: Likely discharge after anti-TNF alpha treatment Tuesday on warfarin and Love nox bridge with F/U PCP. Not adhering to appointments and insurance coverage her largest is sly. Appreciate CM looking for other options of care since patient has income that does not qualify for jose. F/E/N Thrombosis ppx: Warfarin, Lovenox bridge Glucose: not indicated Diet: regular Code: Do Not Resuscitate/Do Not Intubate This patient was seen with GM3, refer to Attending and Resident notes for assessment and pl an. Simone Mclaughlin MD - 03/29/2012 10:32 PM PSTFormatting of this note might be different from the della biju Transfer Accept Note Patient: Mackenzie Hartley Attending: Kirit Rust MD Brief Hospital Course: Mrs. Hartley is a 58yo F with hx of Crohn's with multiple complications (multivessel thrombi, perirectal abscess and recto-vaginal fistula, HCAP vs pulmonary hemorrhage) who was admitte d for a crohn's flair with perirectal abscesses and fistulae and arterial thrombosis. Befor e repair of fistula was to occur, pt had a melanotic stool with hct drop and subsequent BRBP R (fairly large volume) that lead to her being transferred to the ICU as well as being trans fused 2U PRBC and 2U FFP. Once in the MICU, GI was concerned about the risk of scoping in the setting of a patient wi th previous CT and CTA that possible indicated ischemic colitis. Repeat low dose CTA was do ne and did not show signs of new ischemia and EGD/Colonoscopy were done on 03/29/12 and show ed: EGD- 1. 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 5cm hiatal hernia 3. Normal stomach 4. Normal duodenal bulb, duodenum and distal duodenum/proximal jejunum Colonoscopy- 1. At least one healing fistula tract seen on external inspection, no fluctuance, no clear abscess 2. Short rectal stricture 3. Normal colonic mucosa until right side of colon where there was an abrupt transition alanis r what appeared to be the cecum vs previous anastomosis with erythematous, ulcerated mucosa with overlying exudate and stool that could no be completely dislodge; very friable mucosa w ith loss of vascularity s/p random biopsies 4. Unable to traverse into small bowel past area of erythema 5. On retroflexion, one healing fistula tract was identified; also seen on retroflexion was a 1cm nodule that was biopsied On the repeat CT of the abdomen, there was no apparent abscess. Today, per ID recs, pt was DC'ed on her cefepime and placed on metronidazole. She is now on metronidazole and cipro. Additional Subjective: Today, Mrs. Hartley is doing well. She is still having some anxiety, but notes that she feel s better than prior days. Denies any BRBPR, melena, or hematemesis. Has some diarrhea and nausea, but no current abdominal pain. Physical Exam: Last Vitals: BP 130/74 | Pulse 100 | Temp 37.1 C (98.8 F) | RR 16 | Ht 1.753 m (5' 9") | Wt 72.4 kg (159 lb 9.8 oz) | SpO2 97% | BMI 23.57 kg/(m^2) 24 Hour Vital Min/Max: Systolic (24hrs), Av mmHg, Min:89 mmHg, Max:148 mmHg Diastolic (24hrs), Av mmHg, Min:41 mmHg, Max:92 mmHg Pulse Av.6 Min: 90 Max: 119 Temp Av.1 C (98.8 F) Min: 36.8 C (98.3 F) Max: 37.5 C (99.5 F) Resp Av.6 Min: 12 Max: 23 SpO2 Av.6 % Min: 90 % Max: 99 % Intake/Output Summary (Last 24 hours) at 03/29/12 2232 Last data filed at 03/29/12 1800 Gross per 24 hour Intake 6123 ml Output 5500 ml Net 623 ml General: resting comfortably in bed, NAD HEENT: PERRL, EOMI, sclerae anicteric Lungs: Good air movement in bilateral lung alberto. Some bibasilar crackles without wheezes Heart: RRR with no m/r/g Abdomen: Soft, non-distended. Diffusely tender to palpation throughout abdominal field wi thout rebound or guarding Extremities: WWP with no edema. Neuro: AOx3. CNII-XII intact. No focal deficits. Scheduled Medications Medication Dose Route Frequency Last Rate ciprofloxacin (aka CIPRO) tablet 750 mg 750 mg Oral BID fentaNYL citrate (PF) (aka SUBLIMAZE) injection metroNIDAZOLE (aka FLAGYL) tablet 500 mg 500 mg Oral TID W/MEALS nystatin (aka MYCOSTATIN) cream Topical BID potassium & sodium phosphates (aka K PHOS NEUTRAL) tablet 500 mg 500 mg Oral BID predniSONE (aka DELTASONE) tablet 2.5 mg 2.5 mg Oral DAILY predniSONE (aka DELTASONE) tablet 5 mg 5 mg Oral DAILY predniSONE (aka DELTASONE) tablet 7.5 mg 7.5 mg Oral DAILY promethazine (aka PHENERGAN) injection 25 mg 25 mg Intravenous Q6H 25 mg (03/29/12 173 3) PRN Medications Medication Dose Route Frequency Last Rate acetaminophen (aka TYLENOL) tablet 650 mg 650 mg Oral PRN dextrose IV 25 mL 25 mL Intravenous PRN diphenhydrAMINE (aka BENADRYL) capsule 50 mg 50 mg Oral PRN glucagon (aka GLUCAGEN) injection 1 mg 1 mg Intramuscular PRN glucose chewable tablet 16 g 16 g Oral Q15MIN PRN guar gum (aka BENEFIBER) oral powder 1 Packet 1 Packet Oral DAILY PRN Or guar gum (aka BENEFIBER) oral powder 1 Packet 1 Packet Feeding Tube DAILY PRN heparin 10 unit/mL IV flush syringe 50 Units 50 Units Intravenous PRN 50 Units ( 1403) LORazepam (aka ATIVAN) injection 1 mg 1 mg Intravenous Q4H PRN 1 mg (03/29/12 1733) menthol-zinc oxide (aka CALAZIME) topical paste Topical QID PRN morphine (aka MS IR) tablet 15 mg 15 mg Oral Q4H PRN morphine injection 2-4 mg 2-4 mg Intravenous Q4H PRN 2 mg (03/29/12 1733) polyethylene glycol (aka MIRALAX) powder 17 g 17 g Oral DAILY PRN Or polyethylene glycol (aka MIRALAX) powder 17 g 17 g Feeding Tube DAILY PRN Continuous Medications Medication Dose Route Frequency Last Rate esomeprazole (aka NEXIUM) IV infusion 8 mg/hr Intravenous CONTINUOUS 8 mg/hr (03/29/12 1520) heparin in D5W IV infusion 25,000 units/250 mL (100 units/mL) 1-2,000 Units/hr Intrave nous CONTINUOUS 1,300 Units/hr (03/29/12 1800) Labs: Chemistries: Last 72 Hours (or 3 results): Recent Labs Basename 03/29/12 0442 03/28/12 1653 03/28/12 1648 03/28/12 1138 03/28/12 0644 03/28/12 035 5 03/28/12 0146 NA 142 -- -- -- 144 -- 140 K 3.7 -- -- -- 3.5 4.5 -- CL 109* -- -- -- 113* -- 114* BICARB 25 -- -- -- 23 -- 20* BUN 2* -- -- -- 4* -- 3* CR 0.51* -- -- -- 0.52*|0.52* -- 0.42* GLU 88 121* -- 115* -- -- -- CA 8.0* -- -- -- 7.4* -- 6.7* MG 1.5* -- 1.5* -- -- -- 1.5* PO4 -- -- 2.3* -- -- -- -- CBC with diff last 72 hours (or 3 results) Recent Labs Basename 03/29/12 0442 03/28/12 2357 03/28/12 1648 WBC 14.2* 15.1* 14.2* HB 9.7* 9.7* 9.6* HCT 30.3* 30.5* 29.3* PLT 490* 551* 487* NEUTROPERC -- -- -- BANDPCT -- -- -- LYMPHPERC -- -- -- MONOPERC -- -- -- BASOPERC -- -- -- EOSPERC -- -- -- Micro: No new cultures Imaging: Imaging: CT abd and pelvis with contrast 03/28/12 IMPRESSION: 1. Inflammatory bowel disease near the ileocecal resection site and splenic flexure colon with improving pericecal inflammation 2. Rectal wall thickening and right perirectal sinus tract with no drainable abscess. 3. No evidence of bowel ischemia. Assessment: Mrs. Hartley is a 56yo F with Crohn's disease with multiple complications who was admitted fo r Crohn's flare and perirectal abscesses. Hospital course was complicated by GI bleed witho ut hemodynamic instability or discernible recurrence. Recent CT shows resolution of perirec isha abscess. Plan: #Bilateral pulmonary opacities: Hemorrhage vs HCAP: Pt is afebrile but does have leukocyto sis in the setting of steroid administration. Has received 12 days of cefepime (8 days at c urrent dose). Per ID recs, cefepime stopped today and cipro added. Per ID note, coverage w ith cipro/flagyl should be continued until Crohns can be adequately treated. -Cipro 750mg PO BID -Flagyl - 500mg PO TID #Crohn's Flare: Pt admitted with flare and perirectal abscesses. Doing well on steroids a nd antibiotics. Symptomatically, improving on appropriate treatment. CT on 03/28 shows reso lution of abscess, so no surgical intervention will be required. -Continue prednisone taper. -PRN morphine for pain #GI-Bleed: EGD and colonoscopy done after crit drop and stools concerning for GI bleed. H ct since bleed has been stable with no further discernible bleed. -Appreciate GI recommendations -trend hematocrit #Arterial emboli: Thrombosis of right popliteal artery, surgically repaired. Pt with hype rcoagulability in the setting of Crohns and Lupus Inhibitor. -Per GI recs, started on heparin gtt at prophylactic dose. Following factor Xa levels. -recheck in 12 weeks. -f/u biopsy of friable colonic mucosa -MR enterography to evaluate small bowel and MR pelvis: protocol for low cuts to eval for p erianal fistulizing disease -f/u Hep B serologies. -transfusion goal: Hct>25 -PPI drip #Anxiety: -Lorazepam PRN F: None E: Replete PRN with scheduled BID Na and K-Phos N: Regular Prophylaxis: Heparin GTT, Nexium GTT Code: DNR/DNI Dispo: Pending This pt will be staffed by Dr. Kirit Rust MD. Nathan Weeks MD Internal Medicine PGY1 Pager [phone] tCecilia prado MD - 03/29/2012 6:37 PM PST Vascular Surgery Brief Progress Note 03/29/2012 Colonoscopy showed friable mucosa etiology unclear, inflammatory or ischemic CBC with diff last 72 hours (or 3 results) Recent Labs Basename 03/29/12 0442 03/28/12 2357 03/28/12 1648 WBC 14.2* 15.1* 14.2* HB 9.7* 9.7* 9.6* HCT 30.3* 30.5* 29.3* PLT 490* 551* 487* CTA and CT scan show patent SMA but chronically occluded celiac. If pt is having ischemia t hung most likely either non-occlusive or embolic. Would recommend anticoagulation if mesenter ic ischemia. Also would like pt on anticoagulation for her history of arterial thrombus/embo li to lower legs and aortic thrombus (which is smaller on repeat CT) Will continue to peripherally follow. Please call if any questions. JOSE ANTONIO TONEY MD Debi Yepez MD - 03/29/2012 3:25 PM PSTBrief GI Follow Up Note Per Colorectal surgery, no plans for OR because abscess appearing to be decompressed on shayla ging. Therefore, would like to obtain a few additional studies with goal to move closer to initiation of steroid-sparing therapy (ideally by the weekend). Overall, feel that her risk of thrombosis outweighs her risk of life threatening bleeding so would recommend restarting heparin drip without bolus -MR enterography (to eval small bowel) -MR pelvis (please request specific protocol: protocol for low cuts to eval for perianal f istulizing disease) -Please check Hepatitis B serologies (Hep B s Ag, Hep B s Ab, Hep B c Ab) and place PPD -Therapeutic heparin drip without bolus This plan was communicated with the primary team. Debi Oconnor MD GI Fellow Pager [phone] signed by Debi Oconnor MD at 03/29/2012 3:36 PM Sa mikayla Yepez MD - 03/29/2012 12:54 PM PSTGastroenterology Procedure Note 03/29/2012 Please refer to the [facility] endoscopic report imported under the Procedures tab in Chart [facility] for full details. Procedure: EGD and colonoscopy with deep sedation Attending: Dr. Nathan Hennessy MD, PhD Fellow: Debi Oconnor MD The patient tolerated the procedure well without apparent complications. Sedation: Propofol managed by ICU team Findings: EGD- 1. 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 5cm hiatal hernia 3. Normal stomach 4. Normal duodenal bulb, duodenum and distal duodenum/proximal jejunum Colonoscopy- 1. At least one healing fistula tract seen on external inspection, no fluctuance, no clear abscess 2. Short rectal stricture 3. Normal colonic mucosa until right side of colon where there was an abrupt transition ne ar what appeared to be the cecum vs previous anastomosis with erythematous, ulcerated mucosa with overlying exudate and stool that could no be completely dislodge; very friable mucosa with loss of vascularity s/p random biopsies 4. Unable to traverse into small bowel past area of erythema 5. On retroflexion, one healing fistula tract was identified; also seen on retroflexion wa s a 1cm nodule that was biopsied IMPRESSION and RECOMMENDATIONS: 56 yo woman with long history of colonic and small bowel c rohn's disease complicated by arterial thrombi, fistula and now lower GI bleeding s/p EGD an d colonoscopy. EGD did not show source of bleeding. Colonoscopy demonstrated fistula tract and rectal stricture as well as severe right sided erythema, ulceration and loss of vascula rity which could be due to ischemia, crohn's disease or CMV. Biopsies were taken. -F/U path results -Exam under anesthesia and possible abscess drainage per colorectal surgery -Advance diet as tolerated from GI perspective (pending surgical planning) Debi Oconnor MD Fellow, Gastroenterology pager: [phone] signed by Debi Oconnor MD at 03/29/2012 3:25 PM Shivani Herrera MD - 03/29/2012 12:52 PM PSTProcedural Sedation Note: Procedure(s): Upper endoscopy Colonoscopy Pre-Procedure Vital: Last Vitals: BP 134/78 | Pulse 96 | Temp 37.1 C (98.8 F) | RR 16 | Ht 1.753 m (5' 9") | Wt 72.4 kg (159 lb 9.8 oz) | SpO2 90% | BMI 23.57 kg/(m^2) On 2LPM Medications Given: Propofol: 240 mg Fentanyl 350 mcg Post-Procedure Vitals: BP 95/58 | Pulse 91 | SpO2 95% on 6 LPM There were no complications. Raphael Bashir MD, PhD Fellow Pulmonary and Critical Care Medicine I was present for the critical portions of the procedure as described in the note for this encounter. OSBALDO GARCIA MD [facility] [address] [place], [place] [id number] Andrew Shah MD - 10:41 AM PST [facility] DEPARTMENT OF SURGERY Daily Progress Note PROGRESS NOTE: Attending Physician: Osbaldo Garcia MD 03/29/2012 Subjective/Overnight Events: - bowel prep initiated - Hct stable - no hematochezia or hemetemesis - MEDICATIONS: Reviewed in [facility] VITAL SIGNS: Refer to [facility] Intake/Output Summary (Last 24 hours) at 03/29/12 1042 Last data filed at 03/29/12 0900 Gross per 24 hour Intake 8171 ml Output 7575 ml Net 596 ml PHYSICAL EXAM: General: Alert and oriented, NAD Abdomen: soft, nontender, nondistended. LABS: Chemistries Recent Labs Basename 03/29/12 0442 03/28/12 1653 03/28/12 1648 03/28/12 1138 03/28/12 0644 03/28/12 035 5 03/28/12 0146 NA 142 -- -- -- 144 -- 140 K 3.7 -- -- -- 3.5 4.5 -- CL 109* -- -- -- 113* -- 114* BICARB 25 -- -- -- 23 -- 20* BUN 2* -- -- -- 4* -- 3* CR 0.51* -- -- -- 0.52*|0.52* -- 0.42* GLU 88 121* -- 115* -- -- -- CA 8.0* -- -- -- 7.4* -- 6.7* MG 1.5* -- 1.5* -- -- -- 1.5* PO4 -- -- 2.3* -- -- -- -- AST -- -- -- -- 15 -- -- ALT -- -- -- -- 9* -- -- AP -- -- -- -- 69 -- -- TBILI -- -- -- -- 0.8 -- -- ALB -- -- -- -- 2.1* -- -- CBC with diff Recent Labs Basename 03/29/12 0442 03/28/12 2357 03/28/12 1648 WBC 14.2* 15.1* 14.2* HB 9.7* 9.7* 9.6* HCT 30.3* 30.5* 29.3* PLT 490* 551* 487* NEUTROPERC -- -- -- BANDPCT -- -- -- LYMPHPERC -- -- -- MONOPERC -- -- -- BASOPERC -- -- -- EOSPERC -- -- -- ASSESSMENT AND PLAN: Mackenzie Hartley is a 56 y.o. female with long-standing Crohn's c/b perirectal abscess, recent G I bleed now stable and chronic PAD and chronic celiac occlusion. - EGD and colonoscopy today by GI under sedation - On schedule for OR this evening and will plan to proceed with operative drainage of absce ss - ok to resume diet after drainage - will likely be ok to resume anticoagulation post-op from our perspective but this is pend ing scope data and final GI recs - Keep NPO and mIVF for procedure - medical management of Crohn's per GI Jacoby Tovar MD Surgery, R2 Diagnoses: [id number] Crohn disease This assessment and plan was formulated independently and in conjunction with the Surgical team as well as the attending provider listed above. ATTENDING PHYSICIAN STATEMENT I saw Mackenzie Hartley and have repated the pertinent portions of the history and physical exam. However, her imaging yesterday shows the abscess has decompressed. Proceeding with the ope ration now would likely obligate her to a fistula with seton, which she does not have curren tly. She may need drainage and/or seton once on remicade, but this can be done at a later da te if needed. D/w Dr Hennessy. Will hold on drainage, OK to resume diet and anticoagulation. Andrew Babin MD Osbaldo Mcfarlane MD - 03/29/2012 6:06 AM [facility] Author: OSBALDO GARCIA MD Attending Physician: Osbaldo Gracia MD Assessment and Plan: I personally interviewed the patient, performed the gunter elements of the physical examhungo marisa, and personally formulated the assessment and plan with the MICU resident and the team. Se vega resident note for details. 56-year-old lady who was admitted to the ICU following a gastro intestinal bleeding. She improved clinically. She had a colonoscopy done today for which the MICU team, including myself provided conscious sedation. OSBALDO GARCIA MD [facility] [address] [place] [address] I spent 35 min in critical care (not including procedures) [facility] DEPARTMENT: MICU, [facility]- [id number] Place of Service: Date of Service: 03/29/2012 CSN: [id number] Modifiers:GC Resident Involved: yes Suggested CPT: 36553 Critical Care, Initial 30-74 minutes Carlton Godwin DO - 6:06 AM PST MICU PROGRESS/TRANSFER NOTE Hospital Day:17 Author: CARLTON BETANCOURT DO Attending Physician: Osbaldo Garcia MD Summary: Mackenzie Hartley is a 56 y.o. female with a hx of Crohns with multiple complications (multivesse l thrombi, perirectal abscess and recto-vaginal fistula, HCAP vs pulmonary hemorrhage) who w as transferred to the MICU after a melanotic stool and hct drop concerning for GI bleed. Pr evious hospital course briefly notable for 16 day admission for Crohn's flair with perirecta l abscesses and fistulae and arterial thrombosis. She had initially refused surgical interve ntion, and instead has been treated on broad spectrum antibiotics for fistula and possible H CAP. Now has consented to surgery and had planned to go to OR this morning for repair of fis jay but this was postponed and she was brought to the MICU due to a melanotic stool and the aforementioned drop in her hct. MICU Course: Mrs. Hartley was brought to the MICU over a hct drop from 30.1 -> 24.4 in the s etting of a melanotic stool overnight. At this time she had been transfused 2 units prbcs an d 2 units of FFP. Her hematocrit appropriately bumped and has been stable at 29-30 since th is time. GI, who has been following the patient during her prolonged hospitalization course , originally was not keen to scope the patient over concern of ischemic colitis. The concer n came from a 03/24/12 CT abdomen/pelvis which showed possible gas in the intestine in conju nction with the 03/15/12 CTA which had shown emboli to the colonic vasculature. Both vascula r surgery and colo-rectal surgery were asked to weigh in, and a repeat low dose CTA did not show any signs of new ischemia, therefore GI decided to proceed with the EGD and colonoscopy today,03/29/12. Results are shown below. Regarding her rectal abscess which was supposed to be drained on day of transfer to MICU (1 05/29/11), demarest surgery informed us that according to the most recent CT abdomen, there was no abscess to drain therefore there will be no procedure. She had been on cefepime and cipr o per ID recs covering her for possible HCAP and covering her for her perirectal abscess and recto-vaginal fistula; today her cefepime was discontinued per ID recs, and metronidazole w as added. Regarding her history of arterial thrombus, without active bleeding, we have restarted her on a heparin gtt at prophylactic doses (not treatment doses), and Xa levels will have to be monitored because of her history of lupus anticoagulant. The following results were found in the colonoscopy: EGD- 1. 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 5cm hiatal hernia 3. Normal stomach 4. Normal duodenal bulb, duodenum and distal duodenum/proximal jejunum Colonoscopy- 1. At least one healing fistula tract seen on external inspection, no fluctuance, no clear abscess 2. Short rectal stricture 3. Normal colonic mucosa until right side of colon where there was an abrupt transition alanis r what appeared to be the cecum vs previous anastomosis with erythematous, ulcerated mucosa with overlying exudate and stool that could no be completely dislodge; very friable mucosa w ith loss of vascularity s/p random biopsies 4. Unable to traverse into small bowel past area of erythema 5. On retroflexion, one healing fistula tract was identified; also seen on retroflexion was a 1cm nodule that was biopsied Vitals BP 118/92 | Pulse 94 | Temp 36.8 C (98.3 F) | RR 17 | Ht 1.753 m (5' 9") | Wt 72.4 kg ( 159 lb 9.8 oz) | SpO2 92% | BMI 23.57 kg/(m^2) Systolic (24hrs), Av mmHg, Min:118 mmHg, Max:162 mmHg Diastolic (24hrs), Av mmHg, Min:59 mmHg, Max:96 mmHg Pulse Av.3 Min: 80 Max: 106 Temp Av.1 C (98.7 F) Min: 36.7 C (98.1 F) Max: 37.4 C (99.3 F) Resp Av.1 Min: 13 Max: 24 Gas exchange SpO2 Av.5 % Min: 92 % Max: 99 % Up to Last 5 ABGs in 72 hours: No results found for this basename: PH:5,PCO2:5,PO2:5 in the last 72 hours Fluid balance Wt Readings from Last 3 Encounters: 03/28/12 72.4 kg (159 lb 9.8 oz) 03/28/12 72.4 kg (159 lb 9.8 oz) 03/28/12 72.4 kg (159 lb 9.8 oz) Date 03/28/12 0700 - 03/29/12 0659 03/29/12 07 - 03/30/12 0659 Shift 2256-8856 4826-0860 1242-3777 Daily Total 0667-6381 2252-9565 5163-0578 Daily Total I N T A K E P.O. 1750 2525 4275 I.V. 934 9370 160 9396 Shift Total 934 3740 3450 8124 O U T P U T Urine 1075 2950 1875 5900 Urine 1075 2950 1875 5900 Other 575 523 266 0134 Measured Stool Output 350 425 775 Stool/Urine Mix 575 575 Shift Total 1650 3300 2300 7250 NET -425 817 7280 874 Intake/Output Summary (since admission) at 03/12/12 1910 Last data filed at 03/29/12 0547 Gross for the last 17 days Intake 89299 ml Output 87389 ml Net since Admission -36747 ml Physical Exam: General Appearance: middle aged woman laying in bed in NAD HEENT: fissured lips, oropharynx clear Respiratory: slight bibasilar crackles Cardiovascular: RRR without mrg Abdomen: Soft, nondistended. Bowel sounds present in all four quadrants. Diffusely mild ttp , no rebound tenderness Skin: Warm, dry. No mottling. No rash Neurologic: PERRL. Moving all extremities. No focal deficit. Extremities: Warm and well perfused. No peripheral edema. Data: CBC with diff last 72 hours (or 3 results) Recent Labs Basename 03/29/12 0442 03/28/12 2357 03/28/12 1648 WBC 14.2* 15.1* 14.2* HB 9.7* 9.7* 9.6* HCT 30.3* 30.5* 29.3* PLT 490* 551* 487* NEUTROPERC -- -- -- BANDPCT -- -- -- LYMPHPERC -- -- -- MONOPERC -- -- -- BASOPERC -- -- -- EOSPERC -- -- -- Chemistries: Last 72 Hours (or 3 results): Recent Labs Basename 03/29/12 0442 03/28/12 1653 03/28/12 1648 03/28/12 1138 03/28/12 0644 03/28/12 035 5 03/28/12 0146 NA 142 -- -- -- 144 -- 140 K 3.7 -- -- -- 3.5 4.5 -- CL 109* -- -- -- 113* -- 114* BICARB 25 -- -- -- 23 -- 20* BUN 2* -- -- -- 4* -- 3* CR 0.51* -- -- -- 0.52*|0.52* -- 0.42* GLU 88 121* -- 115* -- -- -- CA 8.0* -- -- -- 7.4* -- 6.7* MG 1.5* -- 1.5* -- -- -- 1.5* PO4 -- -- 2.3* -- -- -- -- Lab Results Lab Test Name Results Date/Time APTT 89.2 03/13/12 FIBRINOGEN 340 03/28/12 Imaging: CT abd and pelvis with contrast 03/28/12 IMPRESSION: 1. Inflammatory bowel disease near the ileocecal resection site and splenic flexure colon with improving pericecal inflammation 2. Rectal wall thickening and right perirectal sinus tract with no drainable abscess. 3. No evidence of bowel ischemia. Medications: Scheduled Medications Medication Dose Route Frequency Last Rate ceFEPIme (aka MAXIPIME) IV (minibag+) 2 g 2 g Intravenous Q8H 2 g (03/29/12 0158) cyanocobalamin (aka VITAMIN B-12) injection 100 mcg 100 mcg Subcutaneous DAILY metroNIDAZOLE (aka FLAGYL) tablet 500 mg 500 mg Oral TID W/MEALS nystatin (aka MYCOSTATIN) cream Topical BID potassium & sodium phosphates (aka K PHOS NEUTRAL) tablet 500 mg 500 mg Oral BID predniSONE (aka DELTASONE) tablet 10 mg 10 mg Oral DAILY predniSONE (aka DELTASONE) tablet 2.5 mg 2.5 mg Oral DAILY predniSONE (aka DELTASONE) tablet 5 mg 5 mg Oral DAILY predniSONE (aka DELTASONE) tablet 7.5 mg 7.5 mg Oral DAILY promethazine (aka PHENERGAN) injection 25 mg 25 mg Intravenous Q6H 25 mg (03/29/12 054 3) PRN Medications Medication Dose Route Frequency Last Rate acetaminophen (aka TYLENOL) tablet 650 mg 650 mg Oral PRN dextrose IV 25 mL 25 mL Intravenous PRN diphenhydrAMINE (aka BENADRYL) capsule 50 mg 50 mg Oral PRN glucagon (aka GLUCAGEN) injection 1 mg 1 mg Intramuscular PRN glucose chewable tablet 16 g 16 g Oral Q15MIN PRN guar gum (aka BENEFIBER) oral powder 1 Packet 1 Packet Oral DAILY PRN Or guar gum (aka BENEFIBER) oral powder 1 Packet 1 Packet Feeding Tube DAILY PRN heparin 10 unit/mL IV flush syringe 50 Units 50 Units Intravenous PRN 50 Units ( 1403) LORazepam (aka ATIVAN) injection 1 mg 1 mg Intravenous Q4H PRN 1 mg (03/29/12 0505) menthol-zinc oxide (aka CALAZIME) topical paste Topical QID PRN morphine (aka MS IR) tablet 15 mg 15 mg Oral Q4H PRN morphine injection 2-4 mg 2-4 mg Intravenous Q4H PRN 2 mg (03/29/12 0505) polyethylene glycol (aka MIRALAX) powder 17 g 17 g Oral DAILY PRN Or polyethylene glycol (aka MIRALAX) powder 17 g 17 g Feeding Tube DAILY PRN Continuous Medications Medication Dose Route Frequency Last Rate dextrose 5%-NaCl 0.45%-KCl 20 mEq/L IV infusion 125 mL/hr Intravenous CONTINUOUS 125 m L/hr (03/29/12 0500) esomeprazole (aka NEXIUM) IV infusion 8 mg/hr Intravenous CONTINUOUS 8 mg/hr (03/29/12 0158) Lines/Tubes: PICC left PIV R Assessment: 56 y.o. female with a hx of Crohns with multiple complications (multivessel thr ombi, perirectal abscess and recto-vaginal fistula, HCPA vs pulmonary hemorrhage) being man sferred to the MICU for GI bleed resulting in hemorrhage. Plan: Neurological - #Anxiety: Was getting lorazepam 0.5mg Q6hrs but states that it doesn't work very well. Incr eased to 1mg q4hr. -increased lorazepam to 1mg q4hr IV Pulmonary - #Pulmonary opacities, bilateral: Appears to be hemorrhage vs HCAP. Pt has been afebrile, do es have leukocytosis in the setting of chronic steroid use. She has already received cefepim e x 12 days (today would be day 8 at the current dose). Per ID rec, will d/c the cefepime to day and add on cipro. There is no specified end point to these antibiotics, per ID note: " continue GN and anaerobic coverage (cipro/metronidazole) for inflammation around fistulas an d abscesses until her Crohns can be treated. There is not a hard end-date here. " - cipro 750mg BID PO - metronidazole 500mg TID PO Cardiovascular - #Patent foramen ovale: no acute issues currently GI - #GIB: status post EGD and colonoscopy with results as noted below. Hct has been stable. P er GI recs, will plan to proceed with MR enterography and MR pelvis. Will check Hep B serol ogies as requested in note as well. - appreciate GI recs - hct qday - f/u path results - nexium gtt - transfuse for goal hct >25 - MR enterography (to eval small bowel) - MR pelvis (please request specific protocol: protocol for low cuts to eval for perianal f istulizing disease) - follow up hepatitis B serologies (Hep B s Ag, Hep B s Ab, Hep B c Ab) - PPD placed, follow up result #Crohn's disease: Flare in disease severity after sub-optimal treatment. Now on steroids an d antibiotics. Not using TNF inhibitors due to abscess and possibility for worsening abscess . Has diarrhea and nausea but no abdominal pain. -phenergan 25mg Q6hr -prednisone taper -dilaudid PRN pain discontinued, only morphine prn Renal - #HypoK, Phos, mag- repleting prn - continue to monitor chem panel 24 Hour goal I/O: net even ID - #Sepsis: Likely secondary to perirectal abscess and also possibly from pulmonary infection. Currently finished treatment for presumed HCAP with cefepime and covering for GNR with cipr o/flagl. - cipro 750mg BID PO - metronidazole 500mg TID PO Heme - #Arterial emboli: Right popliteal artery thrombosed, surgically repaired. Likely secondary to hypercoagulability from Crohns. Lupus inhibitor also positive. - warfarin goal had been INR ~3.0, holding warfarin in setting of acute bleed - per GI recs, will start heparin gtt at prophylactic dose, will need to follow factor Xa l evels - consider heme consult regarding anticoagulation status - This must be rechecked in 12 weeks #Anemia: Normocytic, ferritin 58. Hct currently stable after 2 units PRBCs. - continue to trend q6hr - goal hct >25 - stopping b12 injections today Endocrine - no acute issues General ICU Line/tubes: left PICC, right 18 gauge IV Mobilization: activity as tolerated Family Meetings: none yet, spoke directly with patient Disposition: to floor DRN/DNI Feeding: NPO Analgesia: dilaudid Sedation: lorazepam Thromboprophylaxis: SCDs Head of Bed: Head of Bed >30 degrees Ulcer Prophylaxis: on nexium drip Glycemic control: not needed Carlton Betancourt DO PGY-1 Internal Medicine Pager [phone] Debi Yepez MD - 03/11 4:31 PM PST Gastroenterology Follow-Up Note 03/28/2012 IMPRESSION/PLAN: Complex 56 yo lady with long history of fistulizing small bowel and colon ic crohn's disease on chronic steroids with disease complicated by perirectal abscess and ar terial thrombi now transferred to ICU for GI bleeding. Suspect that source of bleeding is c olon given hemodynamic stability with hematochezia (an upper source of red blood would likel y be brisk arterial bleeding and therefore would lead to hemodynamic changes). Worried in p articular for ischemic colitis given evidence of SMA thrombus in ileocecal distribution on 05/16 CTA and cecal inflammation and pneumatosis on 03/24 CT scan. While she does deserve endoscopic evaluation (colonoscopy at least, possibly EGD), will nee d to rule out a vascular insult first since risk of perforation or worsening hemorrhage woul d be high if she indeed has ischemic bowel. Please ask vascular surgery to reevaluate with specific request for additional imaging. Once safe, will plan for Golytely prep for colonoscopy. We will continue to follow closely. This plan was discussed and formulated with gastroenter ology attending, Dr. Hennessy. Please call with any questions. Debi Oconnor MD GI/Hepatology Fellow Pager: [phone] INTERVAL HISTORY: Episode of melena last night then bright red blood per rectum this morning Hemodynamically stable but decrease in hct from 30 to 24 Transferred to [facility] INPATIENT MEDICATIONS acetaminophen (aka TYLENOL) tablet 650 mg, 650 mg, Oral, PRN ceFEPIme (aka MAXIPIME) IV (minibag+) 2 g, 2 g, Intravenous, Q8H cyanocobalamin (aka VITAMIN B-12) injection 100 mcg, 100 mcg, Subcutaneous, DAILY dextrose 5%-NaCl 0.45%-KCl 20 mEq/L IV infusion, 125 mL/hr, Intravenous, CONTINUOUS dextrose IV 25 mL, 25 mL, Intravenous, PRN diphenhydrAMINE (aka BENADRYL) capsule 50 mg, 50 mg, Oral, PRN esomeprazole (aka NEXIUM) IV infusion, 8 mg/hr, Intravenous, CONTINUOUS glucagon (aka GLUCAGEN) injection 1 mg, 1 mg, Intramuscular, PRN glucose chewable tablet 16 g, 16 g, Oral, Q15MIN PRN guar gum (aka BENEFIBER) oral powder 1 Packet, 1 Packet, Oral, DAILY PRN guar gum (aka BENEFIBER) oral powder 1 Packet, 1 Packet, Feeding Tube, DAILY PRN heparin 10 unit/mL IV flush syringe 50 Units, 50 Units, Intravenous, PRN LORazepam (aka ATIVAN) injection 1 mg, 1 mg, Intravenous, Q4H PRN magnesium sulfate IV 2 g, 2 g, Intravenous, ONCE menthol-zinc oxide (aka CALAZIME) topical paste, , Topical, QID PRN metroNIDAZOLE (aka FLAGYL) tablet 500 mg, 500 mg, Oral, TID W/MEALS morphine (aka MS IR) tablet 15 mg, 15 mg, Oral, Q4H PRN morphine injection 2-4 mg, 2-4 mg, Intravenous, Q4H PRN nystatin (aka MYCOSTATIN) cream, , Topical, BID polyethylene glycol (aka MIRALAX) powder 17 g, 17 g, Oral, DAILY PRN polyethylene glycol (aka MIRALAX) powder 17 g, 17 g, Feeding Tube, DAILY PRN potassium & sodium phosphates (aka K PHOS NEUTRAL) tablet 500 mg, 500 mg, Oral, BID predniSONE (aka DELTASONE) tablet 10 mg, 10 mg, Oral, DAILY predniSONE (aka DELTASONE) tablet 2.5 mg, 2.5 mg, Oral, DAILY predniSONE (aka DELTASONE) tablet 5 mg, 5 mg, Oral, DAILY predniSONE (aka DELTASONE) tablet 7.5 mg, 7.5 mg, Oral, DAILY promethazine (aka PHENERGAN) injection 25 mg, 25 mg, Intravenous, Q6H EXAM BP 141/86 | Pulse 101 | Temp 37.1 C (98.8 F) | RR 16 | Ht 1.753 m (5' 9") | Wt 72.4 kg (159 lb 9.8 oz) | SpO2 96% | BMI 23.57 kg/(m^2) Systolic (24hrs), Av mmHg, Min:115 mmHg, Max:141 mmHg Diastolic (24hrs), Av mmHg, Min:59 mmHg, Max:94 mmHg Pulse Av.7 Min: 79 Max: 105 Temp Av.2 C (98.9 F) Min: 36.9 C (98.4 F) Max: 37.4 C (99.3 F) Resp Av.3 Min: 10 Max: 24 SpO2 Av.4 % Min: 92 % Max: 97 % GEN: nontoxic appearing but visibly frustrated, crying periodically ABD: +bs, s, nt, nd : Declines rectal exam unless under anesthesia LABS CBC with diff last 72 hours (or 3 results) Recent Labs Basename 03/28/12 1130 03/28/12 0644 03/28/12 0045 03/27/12 0527 WBC 14.6* 13.4* -- 16.5* HB 9.6* 9.0* -- 9.4* HCT 29.9* 27.8* 24.4* -- PLT 508* 472* -- 771* NEUTROPERC -- -- -- -- BANDPCT -- -- -- -- LYMPHPERC -- -- -- -- MONOPERC -- -- -- -- BASOPERC -- -- -- -- EOSPERC -- -- -- -- Chemistries: Last 72 Hours (or 3 results): Recent Labs Basename 03/28/12 0644 03/28/12 0355 03/28/12 0146 03/27/12 0527 03/26/12 0436 NA 144 -- 140 143 -- K 3.5 4.5 5.3* -- -- CL 113* -- 114* 113* -- BICARB 23 -- 20* 22 -- BUN 4* -- 3* 3* -- CR 0.52*|0.52* -- 0.42* 0.53* -- CA 7.4* -- 6.7* 7.8* -- MG -- -- 1.5* 1.7* 1.5* PO4 -- -- -- -- 1.5* Lab Results Component Value Date INRPT 1.86* 03/28/2012 IMAGING Osbaldo Herrera MD - 03/11 2:58 PM PSTMICU ATTENDING PROGRESS NOTE Author: OSBALDO GARCIA MD Attending Physician: Osbaldo Garcia MD Assessment and Plan: I personally interviewed the patient, performed the gunter elements of the physical examinatio n, and personally formulated the assessment and plan with the MICU resident and the team. Se vega resident note for details. 56-year-old lady with a hx of Crohns with multiple complication s who was admitted to the MICU following gastrointestinal bleeding. She has stabilized after receiving transfusion. Plan was discussed with gastroenterology and a CT scan of her abdome n is planning to evaluate for ischemic colitis following which plans will be made for colono scopy. After discussion with vascular surgery, we will plan to consult [facility] who sujata e seen the patient in the past. OSBALDO GARCIA MD [facility] [id number] [place] [address] I spent 35 min in critical care (not including procedures) [facility] DEPARTMENT: [facility]- [id number] Place of Service: Date of Service: 03/28/2012 CSN: [id number] Modifiers:GC Resident Involved: yes Suggested CPT: 88612 Critical Care, Initial 30-74 minutes Carlton Godwin DO - 2:58 PM PST MICU PROGRESS NOTE Hospital Day:16 Author: CARLTON BETANCOURT DO Attending Physician: Osbaldo Garcia MD Summary: Mackenzie Hartley is a 56 y.o. female with a hx of Crohns with multiple complications (multivesse l thrombi, perirectal abscess and recto-vaginal fistula, HCAP vs pulmonary hemorrhage) who w as transferred to the MICU after a melanotic stool and hct drop concerning for GI bleed. Overnight events: Pt was brought to the MICU after receiving 2 units FFP and 2 units prbcs. Her initial hct inappropriately recovered from 24.4->27.8 after the 2 units of prbcs, but her subsequent hct was 29.9. She had one additional melanotic stool. GI saw the patient bu t there was concern that she could be experiencing ischemic colitis, so they were not keen t o perform the colonoscopy at this time. The concern came from her CTA from 03/15/12 which sh owed Inflammatory stranding around the ascending colon, likely representing ischemic colitis given the presence of thrombus in the ileocolic artery. Followed by a CT pelvis on 03/24 wh ich showed mild cecal irritative signs and soft suggestion of gas in the wall. For this reason, GI has asked the MICU team to consult vascular surgery to see the patient, suggest a modality of testing to best evaluate for ischemic colitis, and to give the go-ahe ad when it is safe to proceed with the colo. Vascular surgery has seen the patient and sugg est a CTA, but on discussion between the MICU attending and radiology, it was decided to pro ceed with a CT with contrast first. Plan will be to proceed with colonoscopy when ischemic colitis is ruled out, with prep possibly tomorrow 03/28 and the procedure possibly 03/29 de pending on the imaging result. Vitals BP 132/81 | Pulse 101 | Temp 37.2 C (99 F) | RR 22 | Ht 1.753 m (5' 9") | Wt 72.4 kg (1 59 lb 9.8 oz) | SpO2 93% | BMI 23.57 kg/(m^2) Systolic (24hrs), Av mmHg, Min:115 mmHg, Max:141 mmHg Diastolic (24hrs), Av mmHg, Min:59 mmHg, Max:94 mmHg Pulse Av.3 Min: 79 Max: 105 Temp Av.2 C (98.9 F) Min: 36.9 C (98.4 F) Max: 37.4 C (99.3 F) Resp Av.3 Min: 10 Max: 24 Gas exchange SpO2 Av.3 % Min: 92 % Max: 97 % Fluid balance Wt Readings from Last 3 Encounters: 03/28/12 72.4 kg (159 lb 9.8 oz) 03/28/12 72.4 kg (159 lb 9.8 oz) Date 03/27/12 07 - 03/28/12 0659 03/28/12699 - 03/29/12 0659 Shift 8179-3781 2178-2557 0621-1148 Daily Total 0326-9663 4410-9739 0127-8893 Daily Total I N T A K E P.O. 240 300 540 I.V. 404 404 934 934 Blood 1300 1300 Shift Total 981 536 4554 2244 934 934 O U T P U T Urine 500 1200 1700 1075 1075 Urine 500 1200 1700 1075 1075 Other 575 575 Stool 1 1 2 Stool/Urine Mix 575 575 Shift Total 500 1200 1700 1650 1650 NET -260 300 504 544 -713 -716 Intake/Output Summary (since admission) at 03/12/12 1910 Last data filed at 03/28/12 1400 Gross for the last 16 days Intake 49883 ml Output 75451 ml Net since Admission -86569 ml Physical Exam: General Appearance: tearful middle aged woman laying in bed in NAD HEENT: fissured lips, oropharynx clear Respiratory: slight bibasilar crackles Cardiovascular: RRR without mrg Abdomen: Soft, nondistended. Bowel sounds present in all four quadrants. Diffusely mild tt p, no rebound tenderness Skin: Warm, dry. No mottling. No rash Neurologic: PERRL. Moving all extremities. No focal deficit. Extremities: Warm and well perfused. No peripheral edema. Data: CBC with diff last 72 hours (or 3 results) Recent Labs Basename 03/28/12 1130 03/28/12 0644 03/28/12 0045 03/27/12 0527 WBC 14.6* 13.4* -- 16.5* HB 9.6* 9.0* -- 9.4* HCT 29.9* 27.8* 24.4* -- PLT 508* 472* -- 771* NEUTROPERC -- -- -- -- BANDPCT -- -- -- -- LYMPHPERC -- -- -- -- MONOPERC -- -- -- -- BASOPERC -- -- -- -- EOSPERC -- -- -- -- Chemistries: Last 72 Hours (or 3 results): Recent Labs Basename 03/28/12 1138 03/28/12 0644 03/28/12 0417 03/28/12 0355 03/28/12 0146 03/27/12 052 7 03/26/12 0436 NA -- 144 -- -- 140 143 -- K -- 3.5 -- 4.5 5.3* -- -- CL -- 113* -- -- 114* 113* -- BICARB -- 23 -- -- 20* 22 -- BUN -- 4* -- -- 3* 3* -- CR -- 0.52*|0.52* -- -- 0.42* 0.53* -- GLU 115* 119* 119* -- -- -- -- CA -- 7.4* -- -- 6.7* 7.8* -- MG -- -- -- -- 1.5* 1.7* 1.5* PO4 -- -- -- -- -- -- 1.5* Lab Results Lab Test Name Results Date/Time APTT 89.2 03/13/12 FIBRINOGEN 340 03/28/12 Imagin/12 CXR Improving right upper lobe consolidation with enlarging left midlung consolidation. New rig ht pleural effusion with increasing right lower lobe atelectasis. 03/15 CT ABD IMPRESSION: 1. Polypoid filling defects in the thoracoabdominal aorta as described, with acute occlusion of the right popliteal artery and evidence of nonocclusive thrombus in the ileocolic artery. Cardiac echography is recommended to evaluate for potential additional causes of emboli. 2. Inflammatory stranding around the ascending colon, likely representing ischemic colitis given the presence of thrombus in the ileocolic artery. 3. 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 4. Small perirectal fluid collection likely representing an abscess without significant change from the most recent CT. 03/24 CT ABD/PEL Impression: 1. Continued presence of right perirectal abscess, localized, not significantly changed since 03/15 2. Mild cecal irritative signs and soft suggestion of gas in the wall. Medications: Scheduled Medications Medication Dose Route Frequency Last Rate ceFEPIme (aka MAXIPIME) IV (minibag+) 2 g 2 g Intravenous Q8H 2 g (03/28/12 1058) cyanocobalamin (aka VITAMIN B-12) injection 100 mcg 100 mcg Subcutaneous DAILY magnesium sulfate IV 2 g 2 g Intravenous ONCE metroNIDAZOLE (aka FLAGYL) tablet 500 mg 500 mg Oral TID W/MEALS nystatin (aka MYCOSTATIN) cream Topical BID potassium & sodium phosphates (aka K PHOS NEUTRAL) tablet 500 mg 500 mg Oral BID predniSONE (aka DELTASONE) tablet 10 mg 10 mg Oral DAILY predniSONE (aka DELTASONE) tablet 2.5 mg 2.5 mg Oral DAILY predniSONE (aka DELTASONE) tablet 5 mg 5 mg Oral DAILY predniSONE (aka DELTASONE) tablet 7.5 mg 7.5 mg Oral DAILY promethazine (aka PHENERGAN) injection 25 mg 25 mg Intravenous Q6H 25 mg (03/28/12 121 0) PRN Medications Medication Dose Route Frequency Last Rate acetaminophen (aka TYLENOL) tablet 650 mg 650 mg Oral PRN dextrose IV 25 mL 25 mL Intravenous PRN diphenhydrAMINE (aka BENADRYL) capsule 50 mg 50 mg Oral PRN glucagon (aka GLUCAGEN) injection 1 mg 1 mg Intramuscular PRN glucose chewable tablet 16 g 16 g Oral Q15MIN PRN guar gum (aka BENEFIBER) oral powder 1 Packet 1 Packet Oral DAILY PRN Or guar gum (aka BENEFIBER) oral powder 1 Packet 1 Packet Feeding Tube DAILY PRN heparin 10 unit/mL IV flush syringe 50 Units 50 Units Intravenous PRN 50 Units ( 1403) LORazepam (aka ATIVAN) injection 1 mg 1 mg Intravenous Q4H PRN 1 mg (03/28/12 1322) menthol-zinc oxide (aka CALAZIME) topical paste Topical QID PRN morphine (aka MS IR) tablet 15 mg 15 mg Oral Q4H PRN morphine injection 2-4 mg 2-4 mg Intravenous Q4H PRN 4 mg (03/28/12 0853) polyethylene glycol (aka MIRALAX) powder 17 g 17 g Oral DAILY PRN Or polyethylene glycol (aka MIRALAX) powder 17 g 17 g Feeding Tube DAILY PRN Continuous Medications Medication Dose Route Frequency Last Rate dextrose 5%-NaCl 0.45%-KCl 20 mEq/L IV infusion 125 mL/hr Intravenous CONTINUOUS esomeprazole (aka NEXIUM) IV infusion 8 mg/hr Intravenous CONTINUOUS 8 mg/hr (03/28/12 0542) Lines/Tubes: Central Line: location: none Arterial Line: location: none Endotracheal tube: none Wolf: Yes/No Left PICC Assessment: 56 y.o. female with a hx of Crohns with multiple complications (multivessel thr ombi, perirectal abscess and recto-vaginal fistula, HCPA vs pulmonary hemorrhage) being man sferred to the MICU for GI bleed resulting in hemorrhage. Plan: Neurological - #Anxiety: Was getting lorazepam 0.5mg Q6hrs but states that it doesn't work very well. Kendra ent is tearful this morning. -increased lorazepam to 1mg q4hr IV Pulmonary - #Pulmonary opacities, bilateral: Appears to be hemorrhage vs HCAP. Pt has been afebrile, d oes have leukocytosis in the setting of chronic steroid use. She has already received cefep eugenio x 11 days (today would be day 7 at the current dose). Per ID rec, will plan to d/c this medication tomorrow 03/29/12 Cardiovascular - #Patent foramen ovale: no acute issues currently GI - #GIB: GI on board, saw patient today but not keen to proceed with endoscopy due to concern over risk of perforation if this was ischemic colitis. Although the patient is not complai indra of any sx of pain in her abdomen, per my conversation with GI, this would not be surpri sing because she is on high doses of steroids and narcotics which may mask her symptoms. Givens ve asked vascular surgery to weigh in on imaging to r/o ischemic colitis/mesenteric ischemia , was verbally told that CTA would be the way to go but MICU attending conversation with rad iology decided to proceed with CT abdomen with contrast because if this is negative, will sa ve her the radiation load. For now, her hct has been stable, but will continue to monitor s erially q6hr until tomorrow. - appreciate GI recs - hct q6hr - nexium gtt - transfuse for goal hct >25 - follow up CT abdomen today #Crohn's disease: Flare in disease severity after sub-optimal treatment. Now on steroids an d antibiotics. Not using TNF inhibitors due to abscess and possibility for worsening abscess . Has diarrhea and nausea but no abdominal pain. -phenergan 25mg Q6hr -prednisone taper -dilaudid PRN pain discontinued, only morphine prn Renal - #Hyperkalemia- resolved, last was seen was 4.5 - continue to monitor chem panel #Hypophosphatemia- repleted earlier, checking this afternoon - follow up afternoon phosphate #Hypomag- repleted earlier, checking this afternoon - follow up afternoon mag check 24 Hour goal I/O: net even ID - #Sepsis: Likely secondary to perirectal abscess and also possibly from pulmonary infection. Getting treated for both. [facility] note today, not looking to perform surgery today b ut perhaps proceed with surgery in the near future. Per ID, will plan on d/c cefipime tomor row, and transition to cipro/flagyl tomorrow. - cefepime (day 7 at current dose, day 10 total) until tomorrow, then transition to cipro/f lagyl Heme - #Arterial emboli: Right popliteal artery thrombosed, surgically repaired. Likely secondary to hypercoagulability from Crohns. Lupus inhibitor also positive. -warfarin goal had been INR ~3.0, now 1.5 in setting of acute bleed -holding warfarin in setting of acute bleed #Anemia: Normocytic, ferritin 58. Hct currently stable after 2 units PRBCs. - continue to trend q6hr - goal hct >25 -Continue b12 injections (last day would by 03/29) #Thrombophilia: most likely secondary to lupus anticoagulant. -goal INR 3 now will be 1.5 in the setting of acute bleed. After bleed is better categoriz ed, will reassess. -heme consult to verify coumadin therapeutic with factor Xa chromagraphic assay or INR is a dequate Endocrine - no acute issues General ICU Line/tubes: left PICC, right 18 gauge IV Mobilization: activity as tolerated Family Meetings: none yet, spoke directly with patient Disposition: ICU level care needed DRN/DNI Feeding: NPO Analgesia: dilaudid Sedation: lorazepam Thromboprophylaxis: SCDs Head of Bed: Head of Bed >30 degrees Ulcer Prophylaxis: on nexium drip Glycemic control: not needed Carlton Betancourt DO PGY-1 Internal Medicine Pager [phone] Andrew Shah MD - 6:52 AM PST ATTENDING PHYSICIAN STATEMENT I saw Mackenziesachi Hartley and have confirmed the findings documented by Dr. Leonard. I spoke with Dr Hennessy from the GI service about her workup. We will drain the abscess as soon as her m edical issues stabilize unless it becomes more urgent. Will be available to assist with ximena luation and management of GIB if primary team and GI team would like. Andrew Damonectronically signed by Andrew Babin MD at 03/28/2012 4:27 PM PSTLowayne , Gayla Patiño MD - 03/28/2012 6:52 AM PST INPATIENT PROGRESS NOTE Author; GAYLA LEONARD MD Attending Physician: sObaldo Garcia MD Interval Hx: Transferred to ICU for GI bleed-- melenotic stools. Hct dropped 30 to 24. Man sfused 2u PRBC and 2u FFP. Never hemodynamically unstable. Physical Exam: Last Vitals: BP 121/64 | Pulse 80 | Temp 37.4 C (99.3 F) | RR 16 | Ht 1.753 m (5' 9") | Wt 72.4 kg (159 lb 9.8 oz) | SpO2 97% | BMI 23.57 kg/(m^2) 24 Hour Vital Min/Max: Systolic (24hrs), Av mmHg, Min:115 mmHg, Max:138 mmHg Diastolic (24hrs), Av mmHg, Min:60 mmHg, Max:79 mmHg Pulse Av.9 Min: 79 Max: 89 Temp Av.2 C (98.9 F) Min: 36.9 C (98.4 F) Max: 37.4 C (99.3 F) Resp Av Min: 10 Max: 22 SpO2 Av.4 % Min: 92 % Max: 97 % Intake/Output Summary (Last 24 hours) at 03/28/12 0652 Last data filed at 03/28/12 0615 Gross per 24 hour Intake 2244 ml Output 1300 ml Net 944 ml UOP 1.3L Labs: Recent Labs Basename 03/28/12 0355 03/28/12 0146 03/27/12 0527 03/26/12 0436 NA -- 140 143 142 K 4.5 5.3* 3.6 -- CL -- 114* 113* 112* BICARB -- 20* 22 21 BUN -- 3* 3* 3* CR -- 0.42* 0.53* 0.51* CA -- 6.7* 7.8* 7.7* MG -- 1.5* 1.7* 1.5* PO4 -- -- -- 1.5* CBC with diff last 72 hours (or 3 results) Recent Labs Basename 03/28/12 0045 03/27/12 0527 03/26/12 0436 WBC -- 16.5* 13.7* HB -- 9.4* 9.3* HCT 24.4* 30.1* 29.8* PLT -- 771* 726* NEUTROPERC -- -- -- BANDPCT -- -- -- LYMPHPERC -- -- -- MONOPERC -- -- -- BASOPERC -- -- -- EOSPERC -- -- -- Meds: acetaminophen (aka TYLENOL) tablet 650 mg, 650 mg, Oral, PRN ceFEPIme (aka MAXIPIME) IV (minibag+) 2 g, 2 g, Intravenous, Q8H codeine tablet 180 mg, 180 mg, Oral, DAILY cyanocobalamin (aka VITAMIN B-12) injection 100 mcg, 100 mcg, Subcutaneous, DAILY dextrose 5%-NaCl 0.45%-KCl 20 mEq/L IV infusion, 100 mL/hr, Intravenous, CONTINUOUS dextrose IV 25 mL, 25 mL, Intravenous, PRN diphenhydrAMINE (aka BENADRYL) capsule 50 mg, 50 mg, Oral, PRN esomeprazole (aka NEXIUM) IV infusion, 8 mg/hr, Intravenous, CONTINUOUS glucagon (aka GLUCAGEN) injection 1 mg, 1 mg, Intramuscular, PRN glucose chewable tablet 16 g, 16 g, Oral, Q15MIN PRN guar gum (aka BENEFIBER) oral powder 1 Packet, 1 Packet, Oral, DAILY PRN guar gum (aka BENEFIBER) oral powder 1 Packet, 1 Packet, Feeding Tube, DAILY PRN heparin 10 unit/mL IV flush syringe 50 Units, 50 Units, Intravenous, PRN HYDROmorphone (aka DILAUDID) injection 0.5 mg, 0.5 mg, Intravenous, Q4H PRN LORazepam (aka ATIVAN) injection 1 mg, 1 mg, Intravenous, Q6H PRN magnesium sulfate IV 2 g, 2 g, Intravenous, ONCE menthol-zinc oxide (aka CALAZIME) topical paste, , Topical, QID PRN metroNIDAZOLE (aka FLAGYL) tablet 500 mg, 500 mg, Oral, TID W/MEALS morphine (aka MS IR) tablet 15 mg, 15 mg, Oral, Q4H PRN morphine injection 2-4 mg, 2-4 mg, Intravenous, Q4H PRN nystatin (aka MYCOSTATIN) cream, , Topical, BID omeprazole (aka PRILOSEC) capsule 40 mg, 40 mg, Oral, BID polyethylene glycol (aka MIRALAX) powder 17 g, 17 g, Oral, DAILY PRN polyethylene glycol (aka MIRALAX) powder 17 g, 17 g, Feeding Tube, DAILY PRN potassium & sodium phosphates (aka K PHOS NEUTRAL) tablet 500 mg, 500 mg, Oral, BID predniSONE (aka DELTASONE) tablet 10 mg, 10 mg, Oral, DAILY predniSONE (aka DELTASONE) tablet 2.5 mg, 2.5 mg, Oral, DAILY predniSONE (aka DELTASONE) tablet 5 mg, 5 mg, Oral, DAILY predniSONE (aka DELTASONE) tablet 7.5 mg, 7.5 mg, Oral, DAILY promethazine (aka PHENERGAN) injection 25 mg, 25 mg, Intravenous, Q6H senna-docusate (aka SENOKOT S) 8.6-50 mg 1 Tab, 1 Tab, Oral, BID sodium phosphate IV 15 mmol, 15 mmol, Intravenous, ONCE General Appearance: NAD Respiratory: CTAB, no wheezes, crackles or rhonchi Cardiovascular: RRR, no murmurs Abd: Soft, NT, ND, incision CDI Ext: No LE edema, pulses intact Skin: Warm Assessment and Plan: 56 yo F with fistulizing Crohn's and persistent perirectal abscess, now with new GI bleed. Had been on OR schedule for I&D of perirectal abscess for today. Will put surgery on hold fo r now. Per MICU team, GI plans to scope patient this afternoon. Depending on findings on sc ope and if patient cont to be hemodynamically stable and does not need further transfusions, we can proceed with surgery in the near future. Patient discussed with Dr. Bbain who agrees with the above assessment and plan. Mirela Ortiz DO - 03/28/2012 4:32 AM PST GENERAL MEDICINE CROSS COVER NOTE Author: MIRELA ZUNIGA DO Attending Physician: Xin Rust MD Hospital day: 16 ID:56 y/o woman with fistulizing Crohn's disease c/b perirectal abscess, rectovaginal fistu las; here for flare and multi-vessel arterial emboli in LEs and recent TIAs with PFO on TTE. Called to bedside for melenotic stool. Noted large black tarry melanotic stool. Pt states that she had no change in her chronic abd pain and states that she was feeling normal. VS 117/60 HR 89, Exam unchanged from documented priors. Hct was drawn which was 24. INR 1.8 (unchanged) Blood ordered. Pt had another large stool but was dark red with clots estimated as at 1L. VS remained stable at 120's/60's Pulse 80's (no rate controlling medications) - though pt n ow was nauseous and maybe some increase in her chronic RLQ pain. FFP ordered Called and discussed care with MICU - ultimately needed to be transferred for higher level of care PPI drip started Current Inpatient Medications Medication Dose Route Frequency oxyCODONE (immediate release) (aka ROXICODONE) liquid 7.5-15 mg 7.5-15 mg Oral Q6H PRN And acetaminophen (aka TYLENOL) tablet 325-650 mg 325-650 mg Oral Q6H PRN ceFEPIme (aka MAXIPIME) IV (minibag+) 2 g 2 g Intravenous Q8H codeine tablet 180 mg 180 mg Oral DAILY cyanocobalamin (aka VITAMIN B-12) injection 100 mcg 100 mcg Subcutaneous DAILY dextrose 5%-NaCl 0.45%-KCl 20 mEq/L IV infusion 100 mL/hr Intravenous CONTINUOUS dextrose IV 25 mL 25 mL Intravenous PRN esomeprazole (aka NEXIUM) IV 80 mg 80 mg Intravenous ONCE esomeprazole (aka NEXIUM) IV infusion 8 mg/hr Intravenous CONTINUOUS glucagon (aka GLUCAGEN) injection 1 mg 1 mg Intramuscular PRN glucose chewable tablet 16 g 16 g Oral Q15MIN PRN heparin 10 unit/mL IV flush syringe 50 Units 50 Units Intravenous PRN LORazepam (aka ATIVAN) injection 0.5 mg 0.5 mg Intravenous Q6H PRN magnesium sulfate IV 2 g 2 g Intravenous ONCE menthol-zinc oxide (aka CALAZIME) topical paste Topical BID PRN metroNIDAZOLE (aka FLAGYL) tablet 500 mg 500 mg Oral TID W/MEALS morphine (aka MS IR) tablet 15 mg 15 mg Oral Q4H PRN morphine injection 2-4 mg 2-4 mg Intravenous Q4H PRN nystatin (aka MYCOSTATIN) cream Topical BID omeprazole (aka PRILOSEC) capsule 40 mg 40 mg Oral BID potassium & sodium phosphates (aka K PHOS NEUTRAL) tablet 500 mg 500 mg Oral BID predniSONE (aka DELTASONE) tablet 10 mg 10 mg Oral DAILY predniSONE (aka DELTASONE) tablet 2.5 mg 2.5 mg Oral DAILY predniSONE (aka DELTASONE) tablet 5 mg 5 mg Oral DAILY predniSONE (aka DELTASONE) tablet 7.5 mg 7.5 mg Oral DAILY promethazine (aka PHENERGAN) injection 25 mg 25 mg Intravenous Q6H OBJECTIVE: Last Vitals: BP 118/62 | Pulse 81 | Temp 37.1 C (98.8 F) | RR 18 | Ht 1.753 m (5' 9") | Wt 85.5 kg (188 lb 7.9 oz) | SpO2 97% | BMI 27.84 kg/(m^2) 24 Hour Vital Min/Max: Systolic (24hrs), Av mmHg, Min:117 mmHg, Max:135 mmHg Diastolic (24hrs), Av mmHg, Min:60 mmHg, Max:79 mmHg Pulse Av.6 Min: 79 Max: 89 Temp Av.1 C (98.8 F) Min: 36.9 C (98.4 F) Max: 37.2 C (99 F) Resp Av Min: 18 Max: 18 SpO2 Av.2 % Min: 92 % Max: 97 % Intake/Output Summary (Last 24 hours) at 03/28/12 0433 Last data filed at 03/28/12 0000 Gross per 24 hour Intake 540 ml Output 1900 ml Net -1360 ml Physical Exam: General Appearance: alert, oriented X 3, mild distress, cooperative Respiratory: CTA bilateral Cardiovascular: regular rate & rhythm without murmurs, rubs or gallops and S1, S2 Gastrointestinal: soft, mild TTP in the RLQ, nd, bs +, negative organomegaly Extremitites: wwp Intravascular Catheters:Double lumen PICC, 18 gauge IV LABS: CBC with diff last 72 hours (or 3 results) Recent Labs Basename 03/28/12 0045 03/27/12 0527 03/26/12 0436 WBC -- 16.5* 13.7* HB -- 9.4* 9.3* HCT 24.4* 30.1* 29.8* PLT -- 771* 726* NEUTROPERC -- -- -- BANDPCT -- -- -- LYMPHPERC -- -- -- MONOPERC -- -- -- BASOPERC -- -- -- EOSPERC -- -- -- Lab Results Component Value Date APTT 89.2* 03/13/2012 FIBRINOGEN 340 03/28/2012 Lab Results Component Value Date INRPT 1.86* 03/28/2012 ASSESSMENT/PLAN: 56 y/o woman with fistulizing Crohn's disease c/b perirectal abscess, rectovaginal fistulas ; here for flare and multi-vessel arterial emboli in LEs and recent TIAs with PFO on TTE on coumadin but held 2/2 anticipated surgical correction of perirectal abscess, with new GI ble ed. #. GI Bleed: Likely lower in the setting of arterial thrombi and Crohn's. Though UGI blee d cannot be overlooked. --2U PRBCs transfusing --2U FFP transfusing --PPI drip ordered. --transfer to MICU for further management - discussed with MICU staff who will call GI. Sukumar Zuniga DO Internal Medicine PGY-2 Pg [phone] Davonte De La Rosa MD - 03/27/2012 10:50 PM PST3 Internal Medicine Attending Interval note Hospital day: 15 Patient Active Hospital Problem List: 1) *Sepsis 2) Crohn's disease of both small and large intestine with complication 3) Leukocytosis 4) Hypokalemia 5) Pulmonary infiltrates - bilateral, anterior - hemorrhage vs HCAP 6) Perirectal abscess 7) Iron deficiency anemia 8) Thrombocytosis 9) Popliteal artery thrombosis, right 10) Thrombophilia 11) Hypoalbuminemia 12) Hypophosphatemia 13) Occlusive thrombus 14) TIA (transient ischemic attack) 15) PFO (patent foramen ovale) ASSESSMENT and RECOMMENDATIONS: Patient Active Hospital Problem List: Sepsis (03/19/2012) Crohn's disease of both small and large intestine with complication (03/12/2012) Leukocytosis (03/14/2012) Perirectal abscess (03/14/2012) Assessment: I personally discussed pt with IR and two radiologists - all rec against cabrera rodríguez bc size and loculation would mean small chance of significant drainage, also technical issues of access into recta l cavity by radiology, and IR could get there but not enough volume to place drain in so I called rectal surgery and discussed that option with pt and they will come by and see her to discuss surgical drainage if pt doesn't want that, then plan to dc her home on oral antibiotics with reeval by GI including colonoscopy in a few weeks, hopefully we are also tapering her steroids down Pulmonary infiltrates - bilateral, anterior - hemorrhage vs HCAP (03/21/2012) Assessment: doing well on cefipime - finishing course 03/29/12 Thrombophilia (03/14/2012) Assessment: w/u suggests lupus anticoagulant - will check with heme to see if we need to verify coumading therapeutic with factor Xa chromagraphic assay or INR is adequate I spent a total of 40 mins on care of this patient today - >50% spent on education and coun selling with pt about radiology and IR rec against drainage and plan to have surgery see her for another opinion on drainage of perirectal abscess and coordination of care personally d iscussing case with IR, two radiologists, ID, general surgery and GI. I personally interviewed the patient, performed the gunter elements of the physical examinatio n, and personally formulated the assessment and plan with the resident. I agree with the res ident's documentation and have noted any additions above. KIRIT MD YOCASTA [facility] DEPARTMENT: [id number]- [facility] Faculty P[facility] Place of Service:- Inpatient Date of Service: 03/27/2012 CSN: [id number] Suggested Modifier: GC Resident Involved: Yes Suggested CPT: 71782- Subsequent, Detailed/high complex, 35 min Marely Mccann MD - 03/27/2012 3:20 PM PSTFormatting of this note might be different from the jonathon ZENDEJAS SURGERY CONSULT PROGRESS NOTE Hospital Day:15 Author; GAYLA LEONARD MD Attending Physician: Xin Rust MD Interval Hx: Have been asked to re-consult on patient with perirectal abscess. Patient init ially refused surgical intervention on 03/14/12. CT scan obtained on 03/24/12, which demonstr ated persistent perirectal abscess. IR/radiology unable to access abscess for drainage. Kendra ent now amenable to surgical drainage. Physical Exam: Last Vitals: BP 117/60 | Pulse 89 | Temp 37.2 C (98.9 F) | RR 16 | Ht 1.753 m (5' 9") | Wt 85.5 kg (188 lb 7.9 oz) | SpO2 92% | BMI 27.84 kg/(m^2) O2 Delivery Device: None (room air) (03/27/12 1132) 24 Hour Vital Min/Max: Systolic (24hrs), Av mmHg, Min:117 mmHg, Max:139 mmHgDiastolic (24hrs), Av mmHg, M in:60 mmHg, Max:89 mmHgPulse Min: 79 Max: 94 Temp Min: 37.1 C (98.8 F) Max: 37.4 C (99.3 F) Resp Min: 16 Max: 16 SpO2 Min: 92 % Max: 96 % Intake/Output Summary (Last 24 hours) at 03/27/12 1524 Last data filed at 03/27/12 1316 Gross per 24 hour Intake 1250 ml Output 2100 ml Net -850 ml General Appearance: NAD, alert and oriented HEENT: No scleral icterus Respiratory: Breathing comfortably Cardiovascular: RR Gastrointestinal: Soft, NT, ND Rectal: Deferred Ext: WWP Labs: Recent Labs Basename 03/27/12 0527 03/26/12 0436 03/25/12 0313 03/18/12 1458 03/12/12 1918 WBC 16.5* 13.7* 16.8* -- -- RBC 3.51* 3.50* 3.27* -- -- HB 9.4* 9.3* 9.0* -- -- HCT 30.1* 29.8* 28.4* -- -- PLT 771* 726* 656* -- -- NEUTROPERC -- -- -- 65|73* 97* BANDPCT -- -- -- 1 0 LYMPHPERC -- -- -- 14*|18 0* MONOPERC -- -- -- 14*|8 3 BASOPERC -- -- -- 1|0 0 EOSPERC -- -- -- 3|1 0* Chemistries: Last 72 Hours (or 3 results): Recent Labs Basename 03/27/12 0527 03/26/12 0436 03/25/12 0313 NA 143 142 141 K 3.6 3.3* 3.3* CL 113* 112* 110* BICARB 22 21 23 BUN 3* 3* 3* CR 0.53* 0.51* 0.56* GLU 84 82 98 CA 7.8* 7.7* 7.6* MG 1.7* 1.5* 1.7* PO4 -- 1.5* 1.4* Imaging: CT 03/24/12: Findings: Pelvis: Postsurgical changes are redemonstrated within the cecum. Pericecal fat s tranding and cecal wall thickening are observed, as before. A few locules of anti-dependent gas are seen along the posterior cecal wall, indeterminate but possibly representing pneumat osis within the thickened cecal wall. Given the history of nonocclusive ileocolic thrombus, this may be related to ischemia. Right ureter is ectatic but tapers distally near the bladde r. A small focal rim enhancing fluid collection is identified along the right side of the re ctum, measuring 3.7 x 1.7 cm, not significantly changed. Uterus is surgically absent. Adnexa are unremarkable. Urinary bladder is unremarkable, and Wolf has been removed since the jesse or study. No suspicious osseous lesions. Impression: 1. Continued presence of right perirectal abscess, localized, not significantly changed since 03/15 2. Mild cecal irritative Assessment and Plan: 56 yo F with long standing hx Crohns and persistent perirectal abscess. Abscess has not inc reased in size, but WBC cont to be elevated despite IV abx. Discussed surgical drainage with patient and patient now wanting drainage. -NPO and IVF at midnight -Vit K to correct INR of 1.8 -OR tomorrow for drainage P M Debi Yepez MD - 03/27/2012 2:22 PM PST Gastroenterology Follow-Up Note 03/27/2012 IMPRESSION/PLAN: 56 yo lady with long history of small bowel and colonic crohn's disease t hat has been untreated due to lack of insurance presenting with sepsis and evidence of a per irectal abscess that has not responded to antibiotics. If abscess is too small to drain bas ed on radiologist's impression, would recommend colorectal surgery consult to consider exam under anaesthesia and seton placement. We would still recommend colonoscopy in about 6 week s after definitive therapy for abscess prior to re-initiation of steroid-sparing agents. 1) Colorectal surgery consult 2) Outpatient colonoscopy after treatment of abscess We will continue to follow. This plan was discussed and formulated with gastroenterology at [facility], Dr. Hennessy. Please call with any questions. Debi Oconnor MD GI/Hepatology Fellow Pager: [phone] INTERVAL HISTORY: Imaging reviewed with radiology; too small for drainage INPATIENT MEDICATIONS acetaminophen (aka TYLENOL) tablet 325-650 mg, 325-650 mg, Oral, Q6H PRN ceFEPIme (aka MAXIPIME) IV (minibag+) 2 g, 2 g, Intravenous, Q8H codeine tablet 180 mg, 180 mg, Oral, DAILY cyanocobalamin (aka VITAMIN B-12) injection 100 mcg, 100 mcg, Subcutaneous, DAILY dextrose IV 25 mL, 25 mL, Intravenous, PRN glucagon (aka GLUCAGEN) injection 1 mg, 1 mg, Intramuscular, PRN glucose chewable tablet 16 g, 16 g, Oral, Q15MIN PRN heparin 10 unit/mL IV flush syringe 50 Units, 50 Units, Intravenous, PRN LORazepam (aka ATIVAN) injection 0.5 mg, 0.5 mg, Intravenous, Q6H PRN magnesium sulfate IV 2 g, 2 g, Intravenous, ONCE menthol-zinc oxide (aka CALAZIME) topical paste, , Topical, BID PRN metroNIDAZOLE (aka FLAGYL) tablet 500 mg, 500 mg, Oral, TID W/MEALS morphine (aka MS IR) tablet 15 mg, 15 mg, Oral, Q4H PRN morphine injection 2-4 mg, 2-4 mg, Intravenous, Q4H PRN nystatin (aka MYCOSTATIN) cream, , Topical, BID omeprazole (aka PRILOSEC) capsule 40 mg, 40 mg, Oral, BID oxyCODONE (immediate release) (aka ROXICODONE) liquid 7.5-15 mg, 7.5-15 mg, Oral, Q6H PRN potassium & sodium phosphates (aka K PHOS NEUTRAL) tablet 500 mg, 500 mg, Oral, BID potassium chloride IV 40 mEq, 40 mEq, Intravenous, ONCE predniSONE (aka DELTASONE) tablet 10 mg, 10 mg, Oral, DAILY predniSONE (aka DELTASONE) tablet 2.5 mg, 2.5 mg, Oral, DAILY predniSONE (aka DELTASONE) tablet 5 mg, 5 mg, Oral, DAILY predniSONE (aka DELTASONE) tablet 7.5 mg, 7.5 mg, Oral, DAILY promethazine (aka PHENERGAN) injection 25 mg, 25 mg, Intravenous, Q6H warfarin (aka COUMADIN) tablet 4 mg, 4 mg, Oral, QPM EXAM BP 117/60 | Pulse 89 | Temp 37.2 C (98.9 F) | RR 16 | Ht 1.753 m (5' 9") | Wt 85.5 kg ( 188 lb 7.9 oz) | SpO2 92% | BMI 27.84 kg/(m^2) Systolic (24hrs), Av mmHg, Min:117 mmHg, Max:139 mmHg Diastolic (24hrs), Av mmHg, Min:57 mmHg, Max:89 mmHg Pulse Av.8 Min: 79 Max: 99 Temp Av.2 C (99 F) Min: 37.1 C (98.8 F) Max: 37.4 C (99.3 F) Resp Av.5 Min: 15 Max: 16 SpO2 Av.6 % Min: 92 % Max: 96 % GEN: Very upset nontoxic appearing ABD: soft, nontender Declines perirectal exam at this time LABS CBC with diff last 72 hours (or 3 results) Recent Labs Basename 03/27/12 0527 03/26/12 0436 03/25/12 0313 WBC 16.5* 13.7* 16.8* HB 9.4* 9.3* 9.0* HCT 30.1* 29.8* 28.4* PLT 771* 726* 656* NEUTROPERC -- -- -- BANDPCT -- -- -- LYMPHPERC -- -- -- MONOPERC -- -- -- BASOPERC -- -- -- EOSPERC -- -- -- Chemistries: Last 72 Hours (or 3 results): Recent Labs Basename 03/27/12 0503/26/12 0436 03/25/12 0313 NA 143 142 141 K 3.6 3.3* 3.3* CL 113* 112* 110* BICARB 22 21 23 BUN 3* 3* 3* CR 0.53* 0.51* 0.56* CA 7.8* 7.7* 7.6* MG 1.7* 1.5* 1.7* PO4 -- 1.5* 1.4* Lab Results Component Value Date INRPT 1.83* 03/27/2012 IMAGING Dung Victor - 2 11:30 AM PST NOTE: Visited with Patient. Patient shared events leading to hospitalization as well as plan of care. Patient expresse d grief at being in the hospital during the holiday season; notes feeling well enough to dis charge home and wait until procedure. Patient asked, "Is there anything you can do to get t he ball rolling?" Offered emotional support and encouragement. Offered Patient Advocate contact information; Patient declined noting, "Isn't everyone supp ose to be advocating for the Patient?" Patient noted tremaine is "questionable after living 7 years of hell". Scanning Coordinator team will follow as needed. Chaplain Dung Riley M.Div., [facility] [phone] Pager [phone]; #[phone] Xin De La Rosa MD - 7:31 AM PSTI personally interviewed the patient, performed the pertinent parts of t he physical examination and personally formulated the plan with the resident. I agree with the MS4 documentation and have documented any additions or exceptions in my progress note. Joaquin Hui - 03/27/2012 7:31 AM PST Medicine Progress Note Refer to Attending and Resident Notes for Assessment and Plan Hospital Day # 15 Patient:Mackenzie Hartley, Attending: Xin Rust MD Author:Joaquin Rivera 4 ID:Mackenzie Hartley is a 56 y.o. female with a history of Chron's, vaginal fistula, and chronic perirectal abscess who presents from OSH with Chron's flair, multivessel thrombi, found to h ave PFO, and multilobular HCAP. 24 Hour Events: Analgesia: Ativan x 3, Morphine 2mg IV x 6 and 15mg tab x 1, codeine 180 mg tab, no oxycodo ne use IR and radiology cannot successfully access loculated perirectal abscess for drainage. Subjective: Did not sleep well, tearful, wants abscess drained or to be sent home. No CP, no SOB, no a bdominal pain, no right lower leg pain. Denies dysuria. Unchanged loose stool, brown BM x 1. Ambulating. - Current Inpatient Medications Medication Dose Route Frequency oxyCODONE (immediate release) (aka ROXICODONE) liquid 7.5-15 mg 7.5-15 mg Oral Q6H PRN And acetaminophen (aka TYLENOL) tablet 325-650 mg 325-650 mg Oral Q6H PRN alteplase (aka CATHFLO ACTIVASE) injection 2 mg 2 mg Intracatheter ONCE ceFEPIme (aka MAXIPIME) IV (minibag+) 2 g 2 g Intravenous Q8H codeine tablet 180 mg 180 mg Oral DAILY cyanocobalamin (aka VITAMIN B-12) injection 100 mcg 100 mcg Subcutaneous DAILY dextrose IV 25 mL 25 mL Intravenous PRN glucagon (aka GLUCAGEN) injection 1 mg 1 mg Intramuscular PRN glucose chewable tablet 16 g 16 g Oral Q15MIN PRN heparin 10 unit/mL IV flush syringe 50 Units 50 Units Intravenous PRN LORazepam (aka ATIVAN) injection 0.5 mg 0.5 mg Intravenous Q6H PRN menthol-zinc oxide (aka CALAZIME) topical paste Topical BID PRN metroNIDAZOLE (aka FLAGYL) tablet 500 mg 500 mg Oral TID W/MEALS morphine (aka MS IR) tablet 15 mg 15 mg Oral Q4H PRN morphine injection 2-4 mg 2-4 mg Intravenous Q4H PRN nystatin (aka MYCOSTATIN) cream Topical BID omeprazole (aka PRILOSEC) capsule 40 mg 40 mg Oral BID potassium & sodium phosphates (aka K PHOS NEUTRAL) tablet 500 mg 500 mg Oral BID predniSONE (aka DELTASONE) tablet 10 mg 10 mg Oral DAILY predniSONE (aka DELTASONE) tablet 2.5 mg 2.5 mg Oral DAILY predniSONE (aka DELTASONE) tablet 5 mg 5 mg Oral DAILY predniSONE (aka DELTASONE) tablet 7.5 mg 7.5 mg Oral DAILY promethazine (aka PHENERGAN) injection 25 mg 25 mg Intravenous Q6H vancomycin (aka VANCOCIN) IV 1.25 g 1.25 g Intravenous Q12H warfarin (aka COUMADIN) tablet 4 mg 4 mg Oral QPM EXAM: 24 Hour Vital Min/Max: Last Vitals: BP 139/89 | Pulse 93 | Temp 37.4 C (99.3 F) | RR 16 | Ht 1.753 m (5' 9") | Wt 85.5 kg (188 lb 7.9 oz) | SpO2 94% | BMI 27.84 kg/(m^2): Temp Av.2 C (98.9 F) Min: 37 C (98.6 F) Max: 37.4 C (99.3 F) Systolic (24hrs), Av mmHg, Min:124 mmHg, Max:141 mmHg Diastolic (24hrs), Av mmHg, Min:57 mmHg, Max:89 mmHg Pulse Av.5 Min: 92 Max: 99 Resp Av.7 Min: 15 Max: 16 SpO2 Av.3 % Min: 92 % Max: 97 % Intake/Output Summary (Last 24 hours) at 03/27/12 0731 Last data filed at 03/27/12 0600 Gross per 24 hour Intake 1895 ml Output 2700 ml Net -805 ml Body mass index is 27.84 kg/(m^2). Physical: General: appears appropriate age, laying in bed with headphones on, ill but nontoxic, on 1L NC Lungs: no increased work of breathing , speaking full sentences, bibasilar early inspirator y rales, R course mid inspiratory crackles up to mid lung field. Heart: regular rate and rhythm, no murmurs, gallops or rubs Abdomen: non distended, NBS, NTTP Extremities: right lower extremity thrombectomy incision site CDI, no erythema. R nonpalpab le dorsalis pedis but warm Psych: tearful CBC with diff last 72 hours (or 3 results) Recent Labs Basename 03/27/1252603/26/1243503/25/12312 WBC 16.5* 13.7* 16.8* HB 9.4* 9.3* 9.0* HCT 30.1* 29.8* 28.4* PLT 771* 726* 656* NEUTROPERC -- -- -- BANDPCT -- -- -- LYMPHPERC -- -- -- MONOPERC -- -- -- BASOPERC -- -- -- EOSPERC -- -- -- Chemistries: Last 72 Hours (or 3 results): Recent Labs Basename 03/27/1252603/26/126 03/25/12312 NA 143 142 141 K 3.6 3.3* 3.3* CL 113* 112* 110* BICARB 22 21 23 BUN 3* 3* 3* CR 0.53* 0.51* 0.56* GLU 84 82 98 CA 7.8* 7.7* 7.6* MG 1.7* 1.5* 1.7* PO4 -- 1.5* 1.4* Liver Tests: Last 72 hours (or 3 results) No results found for this basename: AST:3,ALT:3,TBILI:3,AP:3,ALB:3,TP:3 in the last 72 hour s Lab Results Component Value Date INRPT 1.83* 03/27/2012 Cultures: BLOOD CULTURE [facility] (no units) Date Value 03/23/2012 No growth to date. 03/22/2012 No growth to date. 03/22/2012 No growth to date. Acute Active Problem List 1. Sepsis 2. HCAP, multilobular 3. Electrolyte dyscarias 4. Nausea, acute and episodic 5. Anxiety, acute on chronic 6. Chron's flair, subacute 7. Pain, general subacute 8. Thrombophilia 9. Anemia 10. GERD Assessment and Plan: Mackenzie Hartley is a 56 y.o. female with a history of Chron's, vaginal fis jay, and chronic perirectal fistulas who presents from OSH with Chron's flair, multivessel thrombi, found to have PFO and multilobular HCAP. #Sepsis: Clinically improving afebrile since 03/25, narrowed coverage abx to cefepime. BCx ngtd. Notes that perirectal abscess is not draining and potential source of bacteremia. Ab scess has not changed in size since admission, CT w contrast, and likely not being penetrate d by abx. C. Diff toxin negative, patient denies abdominal pain and is on flagly. Less like ly complicated UTI with bland UA dip, although has had chronic UTIs in the past. - - Appreciate ID recs - - F/U with CT pelvis in three weeks prior to restarting immunosuppression - - continue IV cefepime (PCN allergy, start 03/20), and IV Flagyl #HCAP, multilobular: CXR shows anterior bilateral opacities consistent with HCAP, rapidly i mproving RUL CXR 03/19 and new LML CXR 03/22 . The differential includes alveolar hemorrhage in the setting of reaching therapeutic warfarin. Afebrile since 03/25. Improving and no pu rulent cough with O2 saturation in the upper 90s on RA. WBC dramatic down trended and now st able. Has atelectasis but with improved bibasilar inspiratory rales. No SOB. Reports using I S. - - IV cefepime day 08/15 (PCN allergy, start 03/22), and IV Flagyl - - IS - - encourage to walk #Electrolyte dyscarsias: stablizing K and Mg continue to down trend likely from diarrhea an d low PO intake in the setting of sepsis and chron's flair. Although had a VT run 03/22/12, it has resolved. Does not complain of myalgias. - - Recheck KCl and Mg and replete if necessary #Nausea - Improving, does not tolerate Flagyl, and complains of metallic taste, consider di scontinue codeine 360 mg as it is the likely cause of nausea. Morphine also contributing to nausea. Avoid anti-emetics with high risk of LQTS. Consider dipyridamole to replace phenegra n as it is more potent. - - Scheduled Phenegran 25 mg Q6H, and wake up patient #Anxiety - Improving. in the setting of hospitalization for complicated medical care, has a history of depression, tearful today and does not sleep well - - Ativan 0.5mg Q6H PRN, for anxiety but likely to treat nausea as well #Crohn's Disease/flare - Treatment of amanda-rectal abscess is the goal prior to starting imm unosuppression for Crohn's. Fistulizing disease with enterovaginal fistula. Previously on i nfliximab, stopped due to cost - on prednisone since. Current flare consistent with previous - n/v abdominal pain, watery diarrhea. She's declined colonoscopy. Perirectal, vaginal fist ulas and abscess stable. One perirectal abscess likely contributing to sepsis although 03/12 blood cultures ngtd. Re-examined and found to have right amanda-rectal healed wound where prio r abscess formed. Amendable to have abscess drained. Abx cefepime and Flagyl may not penetra laxmi abscess. - - Consult IR for potential percutaneous drain of abscess - - tapering off non-therapeutic dose of prednisone 12.5 mg daily 03/23/12 #Pain, subacute - abdominal pain from Chron's flair, thombii, and abscess. Musculoskeletal pain from R popliteal thrombectomy. Controlled on current treatment. High use of narcotics. - - codeine 180 mg PO, for diarrhea consider discontinue as likely cause of nausea - - continue oxycodone 15 mg Q6H , tylenol 650mg Q6H - - continue Morphine PO and IV and for abdominal pain - - Colonoscopy in 4-6 weeks, will ask Mrs. Hartley about her preference of provider #Thrombophilia - Multi-vessel thrombi on admission, no new events on life time warfarin. T TE shows right to left PFO, thrombectomy with vascular surgery of right popliteal without co mplications, right foot now warmer. INR at therapeutic range. Lupus inhibitor evaluation pos itive for elevated PTT, suggestive of inhibitor in mixing study. Chron's disease is also ass ociated with hypercoagulable state: J Gastroenterol. 2004 Jan;39(10):948-54. PubMed PMID: [id number]. Consulted Heme for further studies on platelet inhibitor and recommend repeating in 6 months. No new evidence of thrombosis on exam, but lung opacities concerning for alveolar hemorrhage while on warfarin. - - doppler pulses - - Coumadin at therapeutic range INR 2-3 #Anemia - iron deficiency likely from Crohn's despite absence of clear hematochezia or douglas naGhulam Pratherofer on 03/16. Stable Hct 30-31. - - hct goal >21 - - B12 injections until 03/29 - - Monitor BM #GERD - omeprazole BID #Disposition: Likely discharge soon with OPAT, F/U CT pelvis of amanda-rectal abscess; insura nce coverage her largest issue, CM looking to other options for care since patient has incom e that does not qualify for jose F/E/N Thrombosis ppx: Warfarin Glucose: not indicated Diet: regular Code: Do Not Resuscitate/Do Not Intubate This patient was seen with [facility]3, refer to Attending and Resident notes for assessment and pl an. ---- Joaquin Rivera, MS4 Pager # [phone] signed by Xin Rust MD at 03/27/2012 10:49 PM Xin Beal MD - 03/26/2012 9:28 PM PST3 Internal Medicine Attending Interval note Hospital day: 14 Patient Active Hospital Problem List: 1) *Sepsis - now SIRS 2) Crohn's disease of both small and large intestine with complication 3) Leukocytosis 4) Hypokalemia 5) Pulmonary infiltrates - bilateral, anterior - hemorrhage vs HCAP 6) Perirectal abscess 7) Iron deficiency anemia 8) Thrombocytosis 9) Popliteal artery thrombosis, right 10) Thrombophilia 11) Hypoalbuminemia 12) Hypophosphatemia ASSESSMENT and RECOMMENDATIONS: Patient Active Hospital Problem List: SIRS (03/19/2012) Crohn's disease of both small and large intestine with complication (03/12/2012) Perirectal abscess (03/14/2012) Leukocytosis (03/14/2012) Assessment: discussed her case with ID, who still recommends abscess drainage unable to get drainage from IR or radiology staff this weekend who felt this wasn't indicat ed based on small size However, we agree with ID and previous GI consult that IV abxs unliklely to resolve this an d without definitive treatment this will only further delay treatment of her crohns, which is severe and active. She may need surgery for crohns, but needs a colonoscopy to evaluate. GI will revisit pt tomorrow. She wants to go home, but willing to stay a little longer. wants her to stay also, he is afraid if she leaves she will only get worse and end up back in the hospital - which seems likely. Abdominal pain and naseau are much better and pain med doses coming down. Pulmonary infiltrates - bilateral, anterior - hemorrhage vs HCAP (03/21/2012) Assessment: improved clinically, WBCs down a little more, will treat until 03/29 with cef ipime Vanco not needed as per ID recs so DC I spent a total of 35 mins on care of this patient today - >50% spent on education and coun selling with her and then with her - re: above issues including continued need for abscess drainage and why we couldn't accomplish this, this weekend - hop ing radiology staff tomorrow will be more willing to consider, as was fellow I spoke with on Tuesday. Also discussing benefits of staying a little longer in hosp ital vs. risks of leaving prematurely. I personally interviewed the patient, performed the gunter elements of the physical examinatio n, and personally formulated the assessment and plan with the resident. I agree with the res ident's documentation and have noted any additions above. KIRITMarisa RUST MD [facility] DEPARTMENT: [id number]- [facility] Faculty PPV Place of Service:- Inpatient Date of Service: 03/26/2012 CSN: [id number] Suggested Modifier: GC Resident Involved: Yes Suggested CPT: 51434- Subsequent, Detailed/high complex, 35 min aphael Norman - 03/26/2012 12:23 PM PST General Internal Medicine 3 Progress Note 24 Hour Events: No acute events overnight. -IR reviewed case and they are unable to perform drainage of amanda-rectal abscess, recommend ed discussing with IR again. Current Symptoms: Denies pain, nausea this am. Is feeling anxious, worried - wants to leave the hospital soon . Denies chills. Diarrhea continues. Physical Examination: Last 24 hour min/max Temp: 37 C (98.6 F) Temp Min: 36.9 C (98.5 F) Max: 37.3 C (99.2 F) Pulse: 92 Pulse Min: 73 Max: 95 Resp: 16 Resp Min: 16 Max: 20 BP: 141/84 mmHg BP Min: 127/68 Max: 141/84 SpO2: 97 % SpO2 Min: 95 % Max: 97 % Body mass index is 27.84 kg/(m^2). Date 03/26/12 07 - 03/27/12 0659 Shift [id number] 7433-2963 [id number] 24 Hour Total I N T A K E Shift Total O U T P U T Urine 800 800 Shift Total 800 800 Weight (kg) 85.5 85.5 85.5 85.5 General: pleasant, conversational Lungs: Right lower lung with inspiratory crackles, otherwise clear Heart: S1 S2 NR/RR, no murmurs Abd: Norm BS, soft, nt/nd Extremities: RLE embolectomy healing well. Normal, but faint PT pulses Laboratory Interpretation: White blood cell count decreased to 13.7 from 16.8 Hgb stable at 9.3 Potassium 3.3 Mag 1.5 Phos 1.5 Urine cx (03/24) <10,000 colonies Blood cx (03/19): NGTD Blood cx (03/22): NGTD Urine legionella ag (-) Imaging Interpretation: No new imaging Brief Summary: Ms. 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 Assessment and Plan: Fevers/ leukocytosis: still meets SIRS criteria and has presumed source of both lungs and p gigi-rectal abscess but without fevers in the last 24 hours and decreasing WBC. She's been re ceiving treatment for HCAP since 03/22 and overall improving, with decreased lung symptoms, but we remain concerned that the infectious source is the amanda-rectal abscess. It hasn't dec reased in size by comparison between the two recent CT scans and abx are unlikely to treat i t so we'll need definitive drainage. We've asked ID to help us with evaluating this and will likely need to speak with radiology again today. -d/c vancomycin. MRSA unlikely -Continue cefepime -Continue flagyl -Appreciate ID help -Appropriate treatment of abscess pending Crohn's disease: continues to have diarrhea but denies abdominal pain. Definitive treatment ie., TNF inhibitors would be a poor option at this point given the risk of worsening absces s from treatment. Thus, treatment of Crohn's depends upon treating the abscess first as desc ribed above. We've asked GI to evaluate again tomorrow. For now will manage pain and nausea. She was on 20mg of prednisone for treatment of Crohn's as an outpatient. We are tapering th is now in anticipation of other treatments. -Continue phenergan 25mg IV q6h -Continue prednisone taper -pain control with opiates -Codeine decreased to 180mg from 360mg (hopefully this will improve nausea) Arterial emboli: no further evidence of emboli. The patient arrived with suspected arterial thrombi in her gut but no ischemic bowel. The widespread thrombi are explained by the prese nce of a PFO. The lupus inhibitor was also positive, which could be consistent with APLA but we would need to recheck this in a few months as an outpatient. For now, will continue ther apeutic anticoagulation with goal near 3.0. Crohn's disease alone is sufficient to explain h er hypercoagulable state. -Coumadin, goal INR ~3.0 -Daily exams of RLE Anemia: normocytic, ferritin is 58. Fe deficiency is certainly a possibility, though not ce rtain. Nonetheless, she received a full course of IV Fe. The vitamin B12 was also low so we' ve started IV b12. Folate was normal. No evidence of bleeding. -Continue b12 injections (last day would by 03/29) -Monitor for rectal bleeding Dispo: pending decision regarding perirectal abscess as described above. DNR/DNI The above plan was formulated with the supervision of Dr. Rust, attending physician. Raphael Norman MD Internal Medicine, PGY-2 [id number] Xin De La Rosa MD - 03/25/2012 8:58 PM PST3 Internal Medicine Attending Interval note Hospital day: 13 Patient Active Hospital Problem List: 1) SIRS 2) Crohn's disease of both small and large intestine with complication 3) Leukocytosis 4) Hypokalemia 5) Pulmonary infiltrates - bilateral, anterior - hemorrhage vs HCAP 6) Perirectal abscess 7) Iron deficiency anemia 8) Thrombocytosis 9) Popliteal artery thrombosis, right 10) Thrombophilia 11) Hypoalbuminemia 12) Hypophosphatemia 13) Occlusive thrombus 14) TIA (transient ischemic attack) 15) PFO (patent foramen ovale) ASSESSMENT and RECOMMENDATIONS: Patient Active Hospital Problem List: SIRS Crohn's disease of both small and large intestine with complication (03/12/2012) Leukocytosis (03/14/2012) Perirectal abscess (03/14/2012) Assessment: I reviewed CT myself and report - perirectal abscess persists - not larger Resident spoke with vice president integrated who spoke with staff - they did not want to attempt drainage, though my discussion with radiology concluded with likely drainage if not significantly reduced. Resident spoke with IR - they didn't want to drain either. I paged ID and they agreed to reeval pt in am, they and GI had both rec drainage on 03/15 an d abscess hasn't improved significantly with almost 2 weeks Hypokalemia (03/21/2012) Assessment: improved, replacing prn Pulmonary infiltrates - bilateral, anterior - hemorrhage vs HCAP (03/21/2012) Assessment: lung exam improved, no cough, doing ok off O2 most of the time Iron deficiency anemia (03/14/2012) Assessment: consider iron infusion before d/c Hypoalbuminemia (03/14/2012) Assessment: need to recheck, last 03/12 at 1.9 - is taking more PO if still low ask regulatory compliance officer to see Hypophosphatemia (03/14/2012) Assessment: rechecked and is low - will start on replacement I spent a total of 35 mins on care of this patient today - >50% spent on education and coun selling with pt regarding labs and CT pelvis results, resistance from radiology and IR on dr pizarro, and plans for revisit by ID and plans for GI to reeval Tuesday. PHYSICAL EXAM: Last Vitals: BP 129/76 | Pulse 95 | Temp 37.3 C (99.2 F) | RR 20 | Ht 1.753 m (5' 9") | Wt 85.5 kg (188 lb 7.9 oz) | SpO2 96% | BMI 27.84 kg/(m^2) NAD affect is brighter Chest - improved, minimal crackles in mid lung alberto I personally interviewed the patient, performed the gunter elements of the physical examinatio n, and personally formulated the assessment and plan with the resident. I agree with the res ident's documentation and have noted any additions above. KIRIT MD YOCASTA [facility] DEPARTMENT: [id number]- [facility] Faculty P[employer] Place of Service:- Inpatient Date of Service: 03/25/2012 CSN: [id number] Suggested Modifier: GC Resident Involved: Yes Suggested CPT: 83193- Subsequent, Detailed/high complex, 35 min oaquin Rivera - 03/25/2012 1:07 PM PST Medicine Progress Note Refer to Attending and Resident Notes for Assessment and Plan Hospital Day # 13 Patient:Mackenzie Hartley, Attending: Xin Rust MD Author:VIVIANA Steele ID: Mackenzie Hartley is a 56 y.o. female with a history of Chron's, vaginal fistula, and chronic perirectal abscess who presents from OSH with Chron's flair, multivessel thrombi, found to have PFO, multilobular HCAP on empiric abx, and fevers. 24 Hour Events: Spiking fevers 38.3, HR 112 Analgesia: Ativan x 3, Morphine 2mg IV x 3 and 15mg tab x 2, codeine 360mg tab, no oxycodon e use Trazodone for insomnia Desat in the low 90s and placed on 1L in the morning. Subjective: Feels better today. Trouble sleeping and trazodone did not help. Improved breathing, no c ough, no SOB. Nausea better with phenergan and ativan. Discussed with patient that narcoti cs are potential cause of nausea and diminished respiratory drive. Patient amendable to dec reasing codeine. Diarrhea unchanged, but no abdominal pain. Has been ambulating, right leg feels better. Current Inpatient Medications Medication Dose Route Frequency oxyCODONE (immediate release) (aka ROXICODONE) liquid 7.5-15 mg 7.5-15 mg Oral Q6H PRN And acetaminophen (aka TYLENOL) tablet 325-650 mg 325-650 mg Oral Q6H PRN ceFEPIme (aka MAXIPIME) IV (minibag+) 2 g 2 g Intravenous Q8H codeine tablet 180 mg 180 mg Oral DAILY cyanocobalamin (aka VITAMIN B-12) injection 100 mcg 100 mcg Subcutaneous DAILY dextrose IV 25 mL 25 mL Intravenous PRN glucagon (aka GLUCAGEN) injection 1 mg 1 mg Intramuscular PRN glucose chewable tablet 16 g 16 g Oral Q15MIN PRN heparin 10 unit/mL IV flush syringe 50 Units 50 Units Intravenous PRN LORazepam (aka ATIVAN) injection 0.5 mg 0.5 mg Intravenous Q6H PRN menthol-zinc oxide (aka CALAZIME) topical paste Topical BID PRN metroNIDAZOLE (aka FLAGYL) tablet 500 mg 500 mg Oral TID W/MEALS morphine (aka MS IR) tablet 15 mg 15 mg Oral Q4H PRN morphine injection 2-4 mg 2-4 mg Intravenous Q4H PRN nystatin (aka MYCOSTATIN) cream Topical BID omeprazole (aka PRILOSEC) capsule 40 mg 40 mg Oral BID potassium & sodium phosphates (aka K PHOS NEUTRAL) tablet 500 mg 500 mg Oral BID predniSONE (aka DELTASONE) 12.5 mg 12.5 mg Oral DAILY promethazine (aka PHENERGAN) injection 25 mg 25 mg Intravenous Q6H vancomycin (aka VANCOCIN) IV 1.25 g 1.25 g Intravenous Q12H warfarin (aka COUMADIN) tablet 2.5 mg 2.5 mg Oral QPM EXAM: 24 Hour Vital Min/Max: Last Vitals: BP 129/62 | Pulse 101 | Temp 37.6 C (99.7 F) | RR 20 | Ht 1.753 m (5' 9") | Wt 85.5 kg (188 lb 7.9 oz) | SpO2 93% | BMI 27.84 kg/(m^2): Temp Av.7 C (99.9 F) Min: 37.2 C (99 F) Max: 38.3 C (100.9 F) Systolic (24hrs), Av mmHg, Min:117 mmHg, Max:142 mmHg Diastolic (24hrs), Av mmHg, Min:62 mmHg, Max:88 mmHg Pulse Av.7 Min: 90 Max: 112 Resp Av Min: 20 Max: 20 SpO2 Av.9 % Min: 90 % Max: 96 % Intake/Output Summary (Last 24 hours) at 03/25/12 1308 Last data filed at 03/25/12 1200 Gross per 24 hour Intake 1580 ml Output 2400 ml Net -820 ml Body mass index is 27.84 kg/(m^2). Physical: General: appears appropriate age, laying in bed with headphones on, ill but nontoxic, on 1L NC Lungs: no increased work of breathing , speaking full sentences, bibasilar early inspirator y rales, R course mid inspiratory crackles up to mid lung field. Heart: regular rate and rhythm, no murmurs, gallops or rubs Abdomen: non distended, NBS, NTTP Extremities: right lower extremity thrombectomy incision site CDI, no erythema. R nonpalpab le dorsalis pedis but warm Psych: feeling better, but tearful CBC with diff last 72 hours (or 3 results) Recent Labs Basename 03/25/12 0313 03/24/12 0532 03/23/12 0736 WBC 16.8* 17.6* 18.6* HB 9.0* 9.6* 9.5* HCT 28.4* 30.9* 29.4* PLT 656* 668* 686* NEUTROPERC -- -- -- BANDPCT -- -- -- LYMPHPERC -- -- -- MONOPERC -- -- -- BASOPERC -- -- -- EOSPERC -- -- -- Chemistries: Last 72 Hours (or 3 results): Recent Labs Basename 03/25/1231203/24/12 0532 03/23/12 0736 NA 141 142 141 K 3.3* 3.9 4.1 CL 110* 110* 112* BICARB 23 23 20* BUN 3* 2* 3* CR 0.56* 0.52* 0.65 GLU 98 116* 101* CA 7.6* 7.9* 7.6* MG 1.7* 1.6* 1.8 PO4 1.4* -- -- Liver Tests: Last 72 hours (or 3 results) No results found for this basename: AST:3,ALT:3,TBILI:3,AP:3,ALB:3,TP:3 in the last 72 hour s Lab Results Component Value Date INRPT 2.33* 03/25/2012 Cultures: BLOOD CULTURE [facility] (no units) Date Value 03/23/2012 No growth to date. 03/22/2012 No growth to date. 03/22/2012 No growth to date. 03/19/2012 Final Report:No Bacteria or Yeast isolated at 5 days. 03/19/2012 Final Report:No Bacteria or Yeast isolated at 5 days. 03/19/2012 Final Report:No Bacteria or Yeast isolated at 5 days. 03/19/2012 No growth to date. 03/12/2012 Final Report:No Bacteria or Yeast isolated at 5 days. Imaging: CT Pelvis, rectal contrast: "Impression: 1. Continued presence of right perirectal abscess 3.7 x 1.7 cm, localized, not significantly changed since 03/15" Acute Active Problem List 1. Sepsis 2. HCAP, multilobular 3. Electrolyte dyscarias 4. Nausea, acute and episodic 5. Anxiety, acute on chronic 6. Chron's flair, subacute 7. Pain, general subacute 8. Thrombophilia 9. Anemia 10. GERD Assessment and Plan: Mackenzie Hartley is a 56 y.o. female with a history of Chron's, vaginal fis jay, and chronic perirectal abscess who presents from OSH with Chron's flair, multivessel t hrombi, found to have PFO, multilobular HCAP on empiric abx, and fevers. #Sepsis: Clinically improving but continues to spike fevers while on broad coverage abx. BC x ngtd. Notes that perirectal abscess is not draining and potential source of bacteremia neela t is intermittently seeding blood and attributable to fevers. CT pelvis demonstrates absces s that has not changed in sized with two weeks of abx. C. Diff toxin negative, patient marie es abdominal pain and is on flagly. Less likely complicated UTI with bland UA dip, although has had chronic UTIs in the past. - -continue IV vanc (start 03/19), IV cefepime (PCN allergy, start 03/20), and IV Flagyl - -Consult IR for potential percutaneous drain of abscess #HCAP, multilobular: CXR shows anterior bilateral opacities consistent with HCAP. The diffe rential includes alveolar hemorrhage in the setting of reaching therapeutic. Fever still con cerning for atypical PNA, although legionella negative. Improving and no purulent cough with O2 saturation in the upper 90s on RA. WBC dramatic down trended and now stable. Has atelect asis, improved bibasilar inspiratory rales. No SOB. Reports using IS. - -continue IV vanc (start 03/19), IV cefepime (PCN allergy, start 03/20), and IV Flagyl - -IS - -encourage to walk #Electrolyte dyscarsias: stablizing K, Mg, and Phos continue to down trend likely from diar kar and low PO intake in the setting of sepsis and chron's flair. Although had a VT run 03/22, it has resolved. Does not complain of myalgias. - -Recheck KCl and Mg and replete if necessary #Nausea - Improving, does not tolerate Flagyl, and complains of metallic taste, consider di scontinue codeine 360 mg as it is the likely cause of nausea. Morphine also contributing to nausea. Avoid anti-emetics with high risk of LQTS. Consider dipyridamole to replace phenegra n as it is more potent. - -Scheduled Phenegran 25 mg Q6H, and wake up patient #Anxiety - Improving. in the setting of hospitalization for complicated medical care, has a history of depression, tearful today and does not sleep well - -Ativan 0.5mg Q6H PRN, for anxiety but likely to treat nausea as well #Crohn's Disease/flare - fistulizing disease with enterovaginal fistula. Previously on infl iximab, stopped due to cost - on prednisone since. Current flare consistent with previous - n/v abdominal pain, watery diarrhea. She's declined colonoscopy. Perirectal, vaginal fistula s and abscess stable. One perirectal abscess likely contributing to sepsis although 03/12 blo od cultures ngtd. Re-examined and found to have right amanda-rectal healed wound where prior a bscess formed. Amendable to have abscess drained. Abx vanc, cefepime, and Flagyl may not pen etrated abscess. -tapering off non-therapeutic dose of prednisone 12.5 mg daily 03/23/12 #Pain, subacute - abdominal pain from Chron's flair, thombii, and abscess. Musculoskeletal pain from R popliteal thrombectomy. Controlled on current treatment. Decreasing high use of narcotics. - -discontinue codeine 360 mg PO, and switch to lower dose 180 mg PO, for diarrhea consider discontinue as likely cause of nausea - -continue oxycodone 15 mg Q6H , tylenol 650mg Q6H - -continue Morphine PO and IV and for abdominal pain - -Colonoscopy in 4-6 weeks, will ask Mrs. Hartley about her preference of provider #Thrombophilia - TTE shows right to left PFO, thrombectomy with vascular surgery of right p opliteal without complications, right foot now warmer. INR at therapeutic range. Lupus inhib itor evaluation positive for elevated PTT, suggestive of inhibitor in mixing study. Chron's disease is also associated with hypercoagulable state: J Gastroenterol. 2004 Jan;39(10):948- 54. PubMed PMID: [id number]. Consulted Heme for further studies on platelet inhibitor and alan mmend repeating in 6 months. No new evidence of thrombosis on exam, but lung opacities radha rning for alveolar hemorrhage while on warfarin. - -doppler pulses - -Coumadin at therapeutic range #Anemia - iron deficiency likely from Crohn's despite absence of clear hematochezia. Venofe r on 03/16. Stable Hct 30-31. - -hct goal >21 - -consider additional IV Infed in Apr 2012 #GERD - omeprazole BID #Disposition: home when source of fevers have been identified, insurance coverage her large st issue, looking to other options for care since patient has income that does not qualif y for 8hands F/E/N Thrombosis ppx: Warfarin Glucose: not indicated Diet: regular Code: Do Not Resuscitate/Do Not Intubate This patient was seen with GM3, refer to Attending and Resident notes for assessment and pl an. 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 11) Hypoalbuminemia 12) Hypophosphatemia 13) Occlusive thrombus 14) TIA (transient ischemic attack) 15) PFO (patent foramen ovale) ASSESSMENT and RECOMMENDATIONS: Patient Active Hospital Problem List: Sepsis (03/19/2012) Crohn's disease of both small and large intestine with complication (03/12/2012) Leukocytosis (03/14/2012) Perirectal abscess (03/14/2012) Assessment: WBC remains <20k for second day, but recurrent fevers - long discussion on perirectal abscess drainage which pt has deferred for several days pt agreed to percutaneous drainage however I discussed this option with radiology and though accessible, too small for drain and ? benefit so repeating pelvic CT to see if abscess has changed - if smaller - no drainage and do abd CT to look for new abscess to explain fevers if larger - proceed with drainage this spoke with GI and they will see Tuesday to reevaluate Crohn's management, including timing of colonoscopy ADD - I had asked radiology to page me with result so if needed I could hold coumadin dose tonight, however, no page coumadin given, by my read looks like abscess is increased in size 2x4cm aprox - will discu ss drainage with radiology in am. Hypokalemia (03/21/2012) Assessment: improved - supplementing prn Pulmonary infiltrates - bilateral, anterior - hemorrhage vs HCAP (03/21/2012) Assessment: some hypoxia and needing 2L NC last night, but off O2 without SOB today improving Popliteal artery thrombosis, right (03/14/2012) Thrombophilia (03/14/2012) Assessment: therapeutic on coumadin - if needs abscess drainage will need to reverse coumadin and bridge with heparin Hypophosphatemia (03/14/2012) Assessment: need to recheck level I spent a total of 45 mins on care of this patient today - >50% spent on education/counsell ing discussing recurrent fevers and possible drainage of abscess and coordination of care regions hospital radiology reviewing perirectal abscess imaging, options for intervention and need for rep eat imagin, also with GI on plan. I personally interviewed the patient, performed the gunter elements of the physical examinatio n, and personally formulated the assessment and plan with the resident. I agree with the MS4 s documentation and have noted any additions above. KIRIT RUST MD [facility] DEPARTMENT: [id number]- [facility] Faculty PPV Place of Service:- Inpatient Date of Service: 03/24/2012 CSN: [id number] Suggested Modifier: GC Resident Involved: Yes Suggested CPT: 84042- Subsequent, Detailed/high complex, 35 min Davonte De La Rosa MD - 03/24/2012 8:19 AM PSTI personally interviewed the patient, performed the perti nent parts of the physical examination and personally formulated the plan with the resident. I agree with the MS4 documentation and have documented any additions or exceptions in my p rogress note. oaquin Rivera - 03/24/2012 8:19 AM PST Medicine Progress Note Refer to Attending and Resident Notes for Assessment and Plan Hospital Day # 12 Patient:Mackenzie Hartley, Attending: Xin Rust MD Author:Joaquin Herron VIVIANA Rivera ID:Mackenzie Hartley is a 56 y.o. female with a history of Chron's, vaginal fistula, and chronic perirectal fistulas who presents from OSH with Chron's flair, multivessel thrombi, found to have PFO, now febrile with multilobular HCAP. 24 Hour Events: Spiking fevers x 2, 10:17 pm 38.9, HR 94, desaturates 85 on RA 2L continuous pulse ox, tachy w/ fevers BP stable BCx and UCx from PICC. D/C tele Analgesia: Ativan x 3, Morphine 2mg IV x 2 and 2mg tab x 3, codeine 360mg tab, no oxycodone use PT evaluation: ambulating 60-70 feet using IV pole, rec walker. Subjective: Feels better since the last three weeks, able to walk around the halls. Tolerates water an d small amounts of food. Off oxygen in the afternoon and breathing fine. - Current Inpatient Medications Medication Dose Route Frequency oxyCODONE (immediate release) (aka ROXICODONE) liquid 7.5-15 mg 7.5-15 mg Oral Q6H PRN And acetaminophen (aka TYLENOL) tablet 325-650 mg 325-650 mg Oral Q6H PRN ceFEPIme (aka MAXIPIME) IV (minibag+) 2 g 2 g Intravenous Q8H codeine tablet 360 mg 360 mg Oral DAILY cyanocobalamin (aka VITAMIN B-12) injection 100 mcg 100 mcg Subcutaneous DAILY dextrose IV 25 mL 25 mL Intravenous PRN glucagon (aka GLUCAGEN) injection 1 mg 1 mg Intramuscular PRN glucose chewable tablet 16 g 16 g Oral Q15MIN PRN heparin 10 unit/mL IV flush syringe 50 Units 50 Units Intravenous PRN LORazepam (aka ATIVAN) injection 0.5 mg 0.5 mg Intravenous Q6H PRN menthol-zinc oxide (aka CALAZIME) topical paste Topical BID PRN metroNIDAZOLE (aka FLAGYL) tablet 500 mg 500 mg Oral TID W/MEALS morphine (aka MS IR) tablet 15 mg 15 mg Oral Q4H PRN morphine injection 2-4 mg 2-4 mg Intravenous Q4H PRN nystatin (aka MYCOSTATIN) cream Topical BID omeprazole (aka PRILOSEC) capsule 40 mg 40 mg Oral BID predniSONE (aka DELTASONE) tablet 12.5 mg 12.5 mg Oral HS promethazine (aka PHENERGAN) injection 25 mg 25 mg Intravenous Q6H vancomycin (aka VANCOCIN) IV 1.25 g 1.25 g Intravenous Q12H warfarin (aka COUMADIN) tablet 2.5 mg 2.5 mg Oral QPM EXAM: 24 Hour Vital Min/Max: Last Vitals: BP 133/76 | Pulse 96 | Temp 37.3 C (99.1 F) | RR 16 | Ht 1.753 m (5' 9") | Wt 76.295 kg (168 lb 3.2 oz) | SpO2 96% | BMI 24.84 kg/(m^2): Temp Av.9 C (100.3 F) Min: 36.6 C (97.9 F) Max: 38.9 C (102.1 F) Systolic (24hrs), Av mmHg, Min:104 mmHg, Max:141 mmHg Diastolic (24hrs), Av mmHg, Min:51 mmHg, Max:80 mmHg Pulse Av.6 Min: 94 Max: 113 Resp Av.9 Min: 16 Max: 22 SpO2 Av.6 % Min: 85 % Max: 96 % Intake/Output Summary (Last 24 hours) at 03/24/12 0819 Last data filed at 03/24/12 0557 Gross per 24 hour Intake 425 ml Output 2325 ml Net -1900 ml Body mass index is 24.84 kg/(m^2). Physical: General: appears appropriate age, laying in bed with headphones on, ill but nontoxic Lungs: Bibasilar early inspiratory rales, decreased air movement Heart: regular rate and rhythm, no murmurs, gallops or rubs Abdomen: non distended, NBS, no peritoneal signs Extremities: right lower extremity thrombectomy incision site CDI, TTP minimal erythema. R nonpalpable dorsalis pedis but warm G/U: Exterior hemorrhoids, scar tissue on right side of anus, mild erythema perianally, bu t no visible mass Psych: feeling better, but tearful CBC with diff last 72 hours (or 3 results) Recent Labs Basename 03/24/12 0532 03/23/12 0736 03/22/12 0625 WBC 17.6* 18.6* 24.3* HB 9.6* 9.5* 9.6* HCT 30.9* 29.4* 29.9* PLT 668* 686* 559* NEUTROPERC -- -- -- BANDPCT -- -- -- LYMPHPERC -- -- -- MONOPERC -- -- -- BASOPERC -- -- -- EOSPERC -- -- -- Chemistries: Last 72 Hours (or 3 results): Recent Labs Basename 03/24/12 0532 03/23/12 0736 03/22/12 1025 03/22/12 0625 NA 142 141 -- 141 K 3.9 4.1 -- 3.8 CL 110* 112* -- 112* BICARB 23 20* -- 21 BUN 2* 3* -- 3* CR 0.52* 0.65 -- 0.52* GLU 116* 101* 126* -- CA 7.9* 7.6* -- 7.5* MG 1.6* 1.8 -- 1.9 PO4 -- -- -- -- Liver Tests: Last 72 hours (or 3 results) No results found for this basename: AST:3,ALT:3,TBILI:3,AP:3,ALB:3,TP:3 in the last 72 hour s Lab Results Component Value Date INRPT 2.36* 03/24/2012 Cultures: BLOOD CULTURE [facility] (no units) Date Value 03/22/2012 No growth to date. 03/22/2012 No growth to date. 03/19/2012 No growth to date. 03/19/2012 No growth to date. 03/19/2012 No growth to date. 03/19/2012 No growth to date. 03/12/2012 Final Report:No Bacteria or Yeast isolated at 5 days. 03/12/2012 Final Report:No Bacteria or Yeast isolated at 5 days. CULTURE RESULT (no units) Date Value 03/19/2012 C Urine Source: U Midstream Final CULTURE RESULT: No growth (<1000 col/ml) after 24 hours 03/13/2012 C Urine Source: U Midstream Final CULTURE RESULT: No growth (<1000 col/ml) after 24 hours 03/13/2012 C Stool Source: Stool Final CULTURE RESULT: Salmonella, Shigella, Campylobacter and E.coli O157:H7 not isolated Unable to rule out Shiga toxins 1 and 2 Repeat CXR 02/21 PA lateral RUL consolidation improving, but left midlung consolidation enlarging. New right pleural effusion with increasing RLL atelectasis. Acute Active Problem List 1. Sepsis 2. HCAP, multilobular 3. Electrolyte dyscarias 4. Nausea, acute and episodic 5. Anxiety, acute on chronic 6. Chron's flair, subacute 7. Pain, general subacute 8. Thrombophilia 9. Anemia 10. GERD Assessment and Plan: Mackenzie Hartley is a 56 y.o. female with a history of Chron's, vaginal fis jay, and chronic perirectal fistulas who presents from OSH with Chron's flair, multivessel thrombi, found to have PFO, now febrile with multilobular HCAP. #Sepsis: Clinically improving but continues to spike fevers while on broad coverage abx. BC x ngtd. Notes that perirectal abscess is not draining and potential source of bacteremia. C . Diff toxin negative, patient denies abdominal pain and is on flagly. Less likely complica laxmi UTI with bland UA dip, although has had chronic UTIs in the past. -discontinue contact isolation -continue IV vanc (start 03/19), IV cefepime (PCN allergy, start 03/20), and IV Flagyl #HCAP, multilobular: CXR shows anterior bilateral opacities consistent with HCAP. The diff erential includes alveolar hemorrhage in the setting of reaching therapeutic. Fever still co ncerning for atypical PNA, although legionella negative. Improving and no purulent cough wi th O2 saturation in the upper 90s on RA. WBC dramatic down trended and now stable. Has atel ectasis but with improved bibasilar inspiratory rales. No SOB. Reports using IS. -continue IV vanc (start 03/19), IV cefepime (PCN allergy, start 03/20), and IV Flagyl - IS - encourage to walk #Electrolyte dyscarsias: stablizing K and Mg continue to down trend likely from diarrhea an d low PO intake in the setting of sepsis and chron's flair. Although had a VT run 03/22/12, it has resolved. Does not complain of myalgias. - Recheck KCl and Mg and replete if necessary - discontinued telemetry #Nausea - Improving, does not tolerate Flagyl, and complains of metallic taste, consider di scontinue codeine 360 mg as it is the likely cause of nausea. Morphine also contributing to nausea. Avoid anti-emetics with high risk of LQTS. Consider dipyridamole to replace phenegra n as it is more potent. - Scheduled Phenegran 25 mg Q6H, and wake up patient #Anxiety - Improving. in the setting of hospitalization for complicated medical care, has a history of depression, tearful today and does not sleep well - Ativan 0.5mg Q6H PRN, for anxiety but likely to treat nausea as well #Crohn's Disease/flare - fistulizing disease with enterovaginal fistula. Previously on infl iximab, stopped due to cost - on prednisone since. Current flare consistent with previous - n/v abdominal pain, watery diarrhea. She's declined colonoscopy. Perirectal, vaginal fistul as and abscess stable. One perirectal abscess likely contributing to sepsis although / blood cultures ngtd. Re-examined and found to have right amanda-rectal healed wound where prio r abscess formed. Amendable to have abscess drained. Abx vanc, cefepime, and Flagyl may no t penetrated abscess. -Consult IR for potential percutaneous drain of abscess -CTAP with IV and rectal contrast to re-evaluate abscess. -tapering off non-therapeutic dose of prednisone 12.5 mg daily 03/23/12 #Pain, subacute - abdominal pain from Chron's flair, thombii, and abscess. Musculoskeletal pain from R popliteal thrombectomy. Controlled on current treatment. Decreasing high use of narcotics. -codeine 360 mg PO, for diarrhea consider discontinue as likely cause of nausea -continue oxycodone 15 mg Q6H , tylenol 650mg Q6H -continue Morphine PO and IV and for abdominal pain -Colonoscopy in 4-6 weeks, will ask Mrs. Hartley about her preference of provider #Thrombophilia - TTE shows right to left PFO, thrombectomy with vascular surgery of right p opliteal without complications, right foot now warmer. INR at therapeutic range. Lupus inhib itor evaluation positive for elevated PTT, suggestive of inhibitor in mixing study. Chron's disease is also associated with hypercoagulable state: J Gastroenterol. 2004 Jan;39(10):948- 54. PubMed PMID: [id number]. Consulted Heme for further studies on platelet inhibitor and alan mmend repeating in 6 months. No new evidence of thrombosis on exam, but lung opacities conc erning for alveolar hemorrhage while on warfarin. - doppler pulses - Coumadin at therapeutic range #Anemia - iron deficiency likely from Crohn's despite absence of clear hematochezia. Venofe r on 03/16. Stable Hct 30-31. - hct goal >21 - consider additional 200 mg venofer in Apr 2012 #GERD - omeprazole BID #Disposition: home when ambulatory; insurance coverage her largest issue, CM looking to oth er options for care since patient has income that does not qualify for jose F/E/N Thrombosis ppx: Warfarin Glucose: not indicated Diet: regular Code: Do Not Resuscitate/Do Not Intubate This patient was seen with GM3, refer to Attending and Resident notes for assessment and pl an. 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 11) Hypoalbuminemia 12) Hypophosphatemia 13) Occlusive thrombus 14) TIA (transient ischemic attack) 15) PFO (patent foramen ovale) ASSESSMENT and RECOMMENDATIONS: Patient Active Hospital Problem List: Sepsis (03/19/2012) Crohn's disease of both small and large intestine with complication (03/12/2012) Pulmonary infiltrates - bilateral, anterior - hemorrhage vs HCAP (03/21/2012) Perirectal abscess (03/14/2012) Leukocytosis (03/14/2012) Fevers again yesterday pm after 24h w/o spike, however she feels better and wbc dropped to lowest point in hospitalization (18.6), this is encouraging and may be improvement in HCAP. Semaj could be transient bacteremia from active crohns with fistulas or perirectal abcess. She doesn't want to consider perc drainage of abscess or repeat CT today, but agrees to reconsider if s pikes again tonight. She did spike tonight - so tomorrow am we will revisit these issues. I spoke to RN by phone tonight b/c of 85% sat and explained pt status and our plan. She givens s good rapport with pt and agreed to encourage her to consider perc drainage of abscess. Hypokalemia (03/21/2012) Assessment: supplementing but improved, no longer needs tele, will dc Thrombocytosis (03/14/2012) Assessment: plts up, may be lagging WBCs as inflammatory marker Popliteal artery thrombosis, right (03/14/2012) Assessment: no recurrence after procedure, txic on coumadin Thrombophilia (03/14/2012) Assessment: heme thinks she may have hypercoaguable state ?lupus inhibitor Hypoalbuminemia (03/14/2012) Assessment: taking po better last two days Hypophosphatemia (03/14/2012) Assessment: was very low on admit, normal 03/15 but need to recheck I spent a total of 45 mins on care of this patient today - >50% spent on education and coun selling discussing recurrent fevers, labs and her preferences, and coordination of care wit h GI and RNs - See above. I personally interviewed the patient, performed the gunter elements of the physical examinatio n, and personally formulated the assessment and plan with the resident. I agree with the MS4 s documentation and have noted any additions above. KIRITMarisa RUST MD [facility] DEPARTMENT: [id number]- [facility] Faculty PPV Place of Service:- Inpatient Date of Service: 03/23/2012 CSN: [id number] Suggested Modifier: AKHIL Resident Involved: Yes Suggested CPT: 86514- Subsequent, Detailed/high complex, 35 min Davonte De La Rosa MD - 03/23/2012 10:24 PM PSTElectronically signed by Xin Rust MD at 03/24 1:15 PM PSTCox, Jeri Samuel MD - 03/23/2012 10:34 AM PST Inpatient Vascular Surgery Progress Note Hospital Day:11 Author; JERI DIAZ MD Attending Physician: Xin Rust MD 24 hr events: No acute events. Patient comfortable with no complaints. Vitals: Last Vitals: BP 138/88 | Pulse 101 | Temp 36.3 C (97.3 F) | RR 16 | Ht 1.753 m (5' 9") | Wt 76.295 kg (168 lb 3.2 oz) | SpO2 95% | BMI 24.84 kg/(m^2) O2 Delivery Device: None (room air) (03/23/12 0823) 24 Hour Vital Min/Max: Systolic (24hrs), Av mmHg, Min:123 mmHg, Max:140 mmHgDiastolic (24hrs), Av mmHg, M in:57 mmHg, Max:88 mmHgPulse Av.2 Min: 91 Max: 112 Temp Av.1 C (100.5 F) Min: 36.3 C (97.3 F) Max: 39.4 C (102.9 F) Resp Av.1 Min: 16 Max: 18 SpO2 Av.7 % Min: 89 % Max: 95 % Intake/Output Summary (Last 24 hours) at 03/23/12 1034 Last data filed at 03/23/12 0824 Gross per 24 hour Intake 860 ml Output 1800 ml Net -940 ml No Data Recorded LastCBG Intervention: -- (03/20/122003) Physical Exam: Gen: Alert, NAD Extremities: RLE in rooke boot, minimal edema, non-erythematous. Warm and well perfused Pulse/signal exam: DP and PT non-palpable, US not in room, will assess later LABS: Chemistries: Last 72 Hours (or 3 results): Recent Labs Basename 03/23/12 0736 03/22/12 1025 03/22/12 0703 03/22/12 0625 03/21/12 2250 03/21/12 041 2 NA 141 -- -- 141 -- 142 K 4.1 -- -- 3.8 3.2* -- CL 112* -- -- 112* -- 107 BICARB 20* -- -- 21 -- 26 BUN 3* -- -- 3* -- 2* CR 0.65 -- -- 0.52* -- 0.58* GLU 101* 126* 110* -- -- -- CA 7.6* -- -- 7.5* -- 7.4* MG 1.8 -- -- 1.9 -- 1.7* PO4 -- -- -- -- -- -- CBC with diff last 72 hours (or 3 results) Recent Labs Basename 03/23/12 0736 03/22/12 0625 03/21/12 0412 WBC 18.6* 24.3* 29.0* HB 9.5* 9.6* 9.8* HCT 29.4* 29.9* 31.7* PLT 686* 559* 561* NEUTROPERC -- -- -- BANDPCT -- -- -- LYMPHPERC -- -- -- MONOPERC -- -- -- BASOPERC -- -- -- EOSPERC -- -- -- Current Medications: Current facility-administered medications:acetaminophen (aka TYLENOL) tablet 325-650 mg, 32 5-650 mg, Oral, Q6H PRN, Moses Asher MD, 650 mg at 03/19/12 1707 ceFEPIme (aka MAXIPIME) IV (minibag+) 2 g, 2 g, Intravenous, Q8H, Raphael Norman MD, 2 g at 03/23/12 0225 codeine tablet 360 mg, 360 mg, Oral, DAILY, Dariela Santoyo MD, 360 mg at 03/22/12 0850 dextrose IV 25 mL, 25 mL, Intravenous, PRN, Bibiana Adams PA-C glucagon (aka GLUCAGEN) injection 1 mg, 1 mg, Intramuscular, PRN, Bibiana Adams PA-C glucose chewable tablet 16 g, 16 g, Oral, Q15MIN PRN, Bibiana Adams PA-C heparin 10 unit/mL IV flush syringe 50 Units, 50 Units, Intravenous, PRN, Chary Doherty MD, 50 Units at 03/15/12 0904 LORazepam (aka ATIVAN) injection 0.5 mg, 0.5 mg, Intravenous, Q6H PRN, Raphael Norman MD, 0 .5 mg at 03/23/12 0110 menthol-zinc oxide (aka CALAZIME) topical paste, , Topical, BID PRN, Bibiana Adams PA-C metroNIDAZOLE (aka FLAGYL) tablet 500 mg, 500 mg, Oral, TID W/MEALS, Gloria Anthony MD, 500 mg at 03/22/121617 morphine (aka MS IR) tablet 15 mg, 15 mg, Oral, Q4H PRN, Moses Asher MD, 15 mg at 2 2109 morphine injection 2-4 mg, 2-4 mg, Intravenous, Q4H PRN, Raphael Norman MD, 2 mg at 2009 nystatin (aka MYCOSTATIN) cream, , Topical, BID, Gloria Anthony MD omeprazole (aka PRILOSEC) capsule 40 mg, 40 mg, Oral, BID, Dariela Santoyo MD, 40 mg at 03/22 oxyCODONE (immediate release) (aka ROXICODONE) liquid 7.5-15 mg, 7.5-15 mg, Oral, Q6H PRN, Moses Asher MD, 15 mg at 03/19/12 170 predniSONE (aka DELTASONE) tablet 12.5 mg, 12.5 mg, Oral, HS, Raphael Norman MD, 12.5 mg at 03/22/12 2302 promethazine (aka PHENERGAN) injection 25 mg, 25 mg, Intravenous, Q6H, Raphael Norman MD, 2 5 mg at 03/23/12 0343 vancomycin (aka VANCOCIN) IV 1.25 g, 1.25 g, Intravenous, Q12H, Xin Rust MD, 1. 25 g at 03/23/12 0017 warfarin (aka COUMADIN) tablet 2.5 mg, 2.5 mg, Oral, QPM, Gloria Anthony MD Assessment and Plan: 56 y.o. female POD# 6 s/p embolectomy of R popliteal and tibial arteries 1. Right Leg ischemia - Life long warfarin, target INR 2-3 - Maintain Rooke boot, WBAT - Repeat Carotid duplex, as first was inadequate, to be done today JERI DIAZ MD [address] [facility] [address] [place] [address] Xin De La Rosa MD - 03/23/2012 7:47 AM PSTI personally interviewed the patient, performed the pertinent parts of the physical examination and personally formulated the plan with the resident. I agree with the MS4 documentation and have documented any additions or exceptions in my progress no te. Joaquin Hui - 03/23/2012 7:47 AM PST Medicine Progress Note Refer to Attending and Resident Notes for Assessment and Plan Hospital Day # 11 Patient:Mackenzie Hartley, Attending: Xin Rust MD Author:VIVIANA Steele ID:Mackenzie Hartley is a 56 y.o. female with a history of Chron's, vaginal fistula, and chronic perirectal fistulas who presents from OSH with Chron's flair, multivessel thrombi, found to have PFO, now febrile with multilobular HCAP. 24 Hour Events: CXR PA lateral Spiked fever, 10:45 pm 38.5, HR 112, desaturates 89 on RA K 3.2 overnight repleted with 40 mEq and now 3.8 Tele: VT runs, ECG normal sinus, no ST elevation, QT interval unchanged from prior ECG Analgesia: Ativan x 3, Morphine 2mg IV x 2 and 2mg tab x 1, codeine 360mg tab, no oxycodone use Subjective: Slept better, denies any pain. Nausea and anxiety improved and tolerating PO. Rare episodic nonproductive cough. Denies GIVENS, emesis, bowel or bladder complaints. Diarrhea and unchanged . Ambulating. - Current Inpatient Medications Medication Dose Route Frequency oxyCODONE (immediate release) (aka ROXICODONE) liquid 7.5-15 mg 7.5-15 mg Oral Q6H PRN And acetaminophen (aka TYLENOL) tablet 325-650 mg 325-650 mg Oral Q6H PRN ceFEPIme (aka MAXIPIME) IV (minibag+) 2 g 2 g Intravenous Q8H codeine tablet 360 mg 360 mg Oral DAILY cyanocobalamin (aka VITAMIN B-12) injection 100 mcg 100 mcg Subcutaneous DAILY dextrose IV 25 mL 25 mL Intravenous PRN glucagon (aka GLUCAGEN) injection 1 mg 1 mg Intramuscular PRN glucose chewable tablet 16 g 16 g Oral Q15MIN PRN heparin 10 unit/mL IV flush syringe 50 Units 50 Units Intravenous PRN LORazepam (aka ATIVAN) injection 0.5 mg 0.5 mg Intravenous Q6H PRN menthol-zinc oxide (aka CALAZIME) topical paste Topical BID PRN metroNIDAZOLE (aka FLAGYL) tablet 500 mg 500 mg Oral TID W/MEALS morphine (aka MS IR) tablet 15 mg 15 mg Oral Q4H PRN morphine injection 2-4 mg 2-4 mg Intravenous Q4H PRN nystatin (aka MYCOSTATIN) cream Topical BID omeprazole (aka PRILOSEC) capsule 40 mg 40 mg Oral BID predniSONE (aka DELTASONE) tablet 12.5 mg 12.5 mg Oral HS promethazine (aka PHENERGAN) injection 25 mg 25 mg Intravenous Q6H vancomycin (aka VANCOCIN) IV 1.25 g 1.25 g Intravenous Q12H warfarin (aka COUMADIN) tablet 2.5 mg 2.5 mg Oral QPM EXAM: 24 Hour Vital Min/Max: Last Vitals: BP 138/88 | Pulse 101 | Temp 36.3 C (97.3 F) | RR 16 | Ht 1.753 m (5' 9") | Wt 76.295 kg (168 lb 3.2 oz) | SpO2 95% | BMI 24.84 kg/(m^2): Temp Av.1 C (100.5 F) Min: 36.3 C (97.3 F) Max: 39.4 C (102.9 F) Systolic (24hrs), Av mmHg, Min:123 mmHg, Max:140 mmHg Diastolic (24hrs), Av mmHg, Min:57 mmHg, Max:88 mmHg Pulse Av.2 Min: 91 Max: 112 Resp Av.1 Min: 16 Max: 18 SpO2 Av.7 % Min: 89 % Max: 95 % Intake/Output Summary (Last 24 hours) at 03/23/12 0748 Last data filed at 03/23/12 0400 Gross per 24 hour Intake 860 ml Output 1700 ml Net -840 ml Body mass index is 24.84 kg/(m^2). Physical: General: appears appropriate age, laying in bed with headphones on, ill but nontoxic Lungs: Bibasilar early inspiratory rales, decreased air movement Heart: regular rate and rhythm, no murmurs, gallops or rubs Abdomen: non distended, NBS, no peritoneal signs Extremities: right lower extremity thrombectomy incision site CDI, TTP minimal erythema. R nonpalpable dorsalis pedis but warm Psych: feeling better, but tearful CBC with diff last 72 hours (or 3 results) Recent Labs Basename 03/23/12 0736 03/22/12 0625 03/21/12 0412 WBC 18.6* 24.3* 29.0* HB 9.5* 9.6* 9.8* HCT 29.4* 29.9* 31.7* PLT 686* 559* 561* NEUTROPERC -- -- -- BANDPCT -- -- -- LYMPHPERC -- -- -- MONOPERC -- -- -- BASOPERC -- -- -- EOSPERC -- -- -- Chemistries: Last 72 Hours (or 3 results): Recent Labs Basename 03/23/12 0736 03/22/12 1025 03/22/12 0703 03/22/12 0625 03/21/12 2250 03/21/12 041 2 NA 141 -- -- 141 -- 142 K 4.1 -- -- 3.8 3.2* -- CL 112* -- -- 112* -- 107 BICARB 20* -- -- 21 -- 26 BUN 3* -- -- 3* -- 2* CR 0.65 -- -- 0.52* -- 0.58* GLU 101* 126* 110* -- -- -- CA 7.6* -- -- 7.5* -- 7.4* MG 1.8 -- -- 1.9 -- 1.7* PO4 -- -- -- -- -- -- Lab Results Component Value Date INRPT 2.49* 03/23/2012 Pending Legionella and C. Diff studies Cultures: BLOOD CULTURE [facility] (no units) Date Value 03/19/2012 No growth to date. 03/19/2012 No growth to date. 03/19/2012 No growth to date. 03/19/2012 No growth to date. 03/12/2012 Final Report:No Bacteria or Yeast isolated at 5 days. 03/12/2012 Final Report:No Bacteria or Yeast isolated at 5 days. CULTURE RESULT (no units) Date Value 03/19/2012 C Urine Source: U Midstream Final CULTURE RESULT: No growth (<1000 col/ml) after 24 hours 03/13/2012 C Urine Source: U Midstream Final CULTURE RESULT: No growth (<1000 col/ml) after 24 hours 03/13/2012 C Stool Source: Stool Final CULTURE RESULT: Salmonella, Shigella, Campylobacter and E.coli O157:H7 not isolated Unable to rule out Shiga toxins 1 and 2 Repeat CXR 02/21 PA lateral RUL consolidation improving, but left midlung consolidation enlarging. New right pleural effusion with increasing RLL atelectasis. Acute Active Problem List 1. Sepsis 2. HCAP, multilobular 3. Electrolyte dyscarias 4. Nausea, acute and episodic 5. Anxiety, acute on chronic 6. Chron's flair, subacute 7. Pain, general subacute 8. Perirectal and vaginal fistulas, chronic 9. Thrombophilia 10. Atelectasis 11. Anemia 12. Thrombocytosis 13. GERD Assessment and Plan: Mackenzie Hartley is a 56 y.o. female with a history of Chron's, vaginal fis jay, and chronic perirectal fistulas who presents from OSH with Chron's flair, multivessel thrombi, found to have PFO, now febrile with multilobular HCAP. #Sepsis: Clinically improving but continues to spike fevers while on broad coverage abx, ex cept for atypical PNAs. Spiking fever, tachycardia, and leukocytosis in the setting of predn isone, BCx ngtd. Notes that perirectal abscess are not draining and potential source of bact eremia. Has had chronic diarrhea, that may potentially be from C. Diff while on IV antibiot ics. Although patient denies abdominal pain and flagly likely covering C. Diff. Spiking fe genaro while on abx, not covering atypicals in HAP like legionella, consider broadening coverag e to include levofloxacin. Less likely complicated UTI with bland UA dip, although has had c hronic UTIs in the past. -F/U Legionella urine study -pending C. Diff toxin, place on isolation -Re-examine perirectal abscess a.m. -continue IV vanc (start 03/19), IV cefepime (PCN allergy, start 03/20), and IV Flagyl #HCAP, multilobular: CXR shows anterior bilateral opacities consistent with HCAP. Conside r on the differential includes alveolar hemorrhage in the setting of reaching therapeutic. F ever still concerning for bacteria not covered by including Legionella. Improving and no pu rulent cough with O2 saturation in the upper 90s on RA. WBC dramatic down trend from 24.3 to 18.6, in the setting tapering prednisone. -continue IV vanc (start 03/19), IV cefepime (PCN allergy, start 03/20), and IV Flagyl #Electrolyte dyscarsias: stablizing K and Mg continue to down trend likely from diarrhea an d low PO intake in the setting of sepsis and chron's flair. Although had a VT run 03/22/12, it has resolved. Does not complain of myalgias. - Recheck KCl and Mg and replete if necessary - telemetry #Nausea - Improving, does not tolerate Flagyl, and complains of metallic taste, consider di scontinue codeine 360 mg as it is the likely cause of nausea. Morphine also contributing to nausea. Avoid anti-emetics with high risk of LQTS. Consider dipyridamole to replace phenegra n as it is more potent. - Scheduled Phenegran 25 mg Q6H, and wake up patient #Anxiety - Improving. in the setting of hospitalization for complicated medical care, has a history of depression, tearful today and does not sleep well - Ativan 0.5mg Q6H PRN, for anxiety but likely to treat nausea as well #Crohn's Disease/flare - fistulizing disease with enterovaginal fistula. Previously on infl iximab, stopped due to cost - on prednisone since. Current flare consistent with previous - n/v abdominal pain, watery diarrhea. She's declined colonoscopy. -prednisone 12.5 mg daily 03/23/12 #Pain, subacute - abdominal pain from Chron's flair, thombii, and abscess. Musculoskeletal pain from R popliteal thrombectomy. Controlled on current treatment. Decreasing high use of narcotics. -codeine 360 mg PO, for diarrhea consider discontinue as likely cause of nausea -continue oxycodone 15 mg Q6H , tylenol 650mg Q6H -continue Morphine PO and IV and for abdominal pain -Colonoscopy in 4-6 weeks, will ask Mrs. Hartley about her preference of provider #Perirectal and Vaginal fistulas - stable, one perirectal abscess too small for surgical or IR drainage. Likely contributing to sepsis although 03/12 blood cultures ngtd. Does not want surgery to re-evaluate. -re-examine a.m. -vanc, cefepime, and Flagyl. #Thrombophilia - TTE shows right to left PFO, thrombectomy with vascular surgery of right p opliteal without complications, right foot now warmer that yesterday. INR at therapeutic ran ge. Lupus inhibitor evaluation positive for elevated PTT, suggestive of inhibitor in mixing study. Chron's disease is also associated with hypercoagulable state: J Gastroenterol. 2004 Jan;39(10):948-54. PubMed PMID: [id number]. Consulted Heme for further studies on platelet i nhibitor and recommend repeating in 6 months. No new evidence of thrombosis on exam, but julito ng opacities concerning for alveolar hemorrhage while on warfarin. - doppler pulses - Coumadin at therapeutic range #Atelectasis -worsening progressive bibasilar inspiratory rales in the setting of immobilit y, no SOB but febrile. Reports using IS. - IS - encourage to walk #Anemia - iron deficiency likely from Crohn's despite absence of clear hematochezia. Venofe r on 03/16. Stable Hct 30-31. - hct goal >21 - consider additional 200 mg venofer in Apr 2012 #Thrombocytosis - reactive from iron deficiency anemia, sepsis. #GERD - omeprazole BID #Disposition: home when ambulatory; insurance coverage her largest issue, CM looking to ot er options for care since patient has income that does not qualify for 8hands F/E/N Thrombosis ppx: Warfarin Glucose: not indicated Diet: regular Code: Do Not Resuscitate/Do Not Intubate This patient was seen with [facility], refer to Attending and Resident notes for assessment and pl an. ---- Joaquin Rivera, MS4 Pager # [phone] Ajay De La Rosa MD - 03/22/2012 10:50 PM [facility] Internal Medicine Attending Interval note Hospital day: 10 Patient Active Hospital Problem List: 1) *Sepsis 2) Crohn's disease of both small and large intestine with complication 3) Perirectal abscess 4) Iron deficiency anemia 5) Leukocytosis 6) Thrombocytosis 7) Popliteal artery thrombosis, right 8) Thrombophilia 9) Occlusive thrombus 10) Hypoalbuminemia 11) Hypophosphatemia 12) TIA (transient ischemic attack) 13) PFO (patent foramen ovale) 14) Hypokalemia 15) Pulmonary infiltrates - bilateral, anterior - hemorrhage vs HCAP ASSESSMENT and RECOMMENDATIONS: Patient Active Hospital Problem List: Sepsis (03/19/2012) Crohn's disease of both small and large intestine with complication (03/12/2012) Perirectal abscess (03/14/2012) Leukocytosis (03/14/2012) Assessment: fever curve trending down, went 24h without fever spike until this evening at 7pm Urine culture neg, presuming HCAP that may be responding to abx However pt is still not being treated as per previous recs - cscope and abscess drainage bc of her wishes. So prognosis isn't very good. She is on no tx for IBS. Was on steroids bc of concern for adrenal suppression, will begin taper. Tonight she said she didn't want cscope bc "if cancer I wouldn't do anything" and bc of her fear of perf. She didn't clearly understand perirectal abscess issue - kept talking about surgeons potentially creating or worsening her fistulas despite my attempts to explain this wouldn't entail going into her peritoneal cavity. She said cost was a consideration, but even if cscope and surgery were "free" she would not change her mind. Pulmonary infiltrates - bilateral, anterior - hemorrhage vs HCAP (03/21/2012) Assessment: more likely HCAP, pt refused f/u CXR this am - did get tonight, I reviewed im ages myself - mid lung infiltrates look improved but right base looks worse with some pl fluid - will rev with radiology in am Thrombophilia (03/14/2012) Assessment: w/u for hypercoaguable state negative except + mixing study suggesting inhibitor - will discuss results with heme, therapeutic on coumadin Hypoalbuminemia (03/14/2012) Assessment: took more po today, has gained some weight asked GI about parenteral nutrition - no likely benefit in this pt Hypokalemia (03/21/2012) Assessment: still req supp but > 3.0 - d/c tele I spent a total of 45 mins on care of this patient today - >50% spent on education and coun selling with pt and by phone -discussing status and treatment and detailed discussio n of her reasons for not wanting Cscope or perirectal abscess drainage. I personally interviewed the patient, performed the gunter elements of the physical examinatio n, and personally formulated the assessment and plan with the resident. I agree with the MS4 s documentation and have noted any additions above. KIRITMarisa RUST MD [facility] DEPARTMENT: [id number]- [facility] Faculty [facility] Place of Service:- Inpatient Date of Service: 03/22/2012 CSN: [id number] Suggested Modifier: Resident Involved: Yes Suggested CPT: 21702- Subsequent, Detailed/high complex, 35 min ox, Jeri Samuel MD - 03/22/2012 5:55 PM PST Inpatient Vascular Surgery Progress Note Hospital Day:10 Author; JERI DIAZ MD Attending Physician: Xin Rust MD 24 hr events: No acute events. She is doing well with no complaints. Vitals: Last Vitals: BP 126/57 | Pulse 91 | Temp 39.2 C (102.6 F) | RR 18 | Ht 1.753 m (5' 9") | Wt 76.295 kg (168 lb 3.2 oz) | SpO2 93% | BMI 24.84 kg/(m^2) O2 Delivery Device: None (room air) (03/22/12 1503) 24 Hour Vital Min/Max: Systolic (24hrs), Av mmHg, Min:123 mmHg, Max:147 mmHgDiastolic (24hrs), Av mmHg, M in:57 mmHg, Max:89 mmHgPulse Av.7 Min: 86 Max: 109 Temp Av.9 C (100.3 F) Min: 37.4 C (99.3 F) Max: 39.2 C (102.6 F) Resp Av.7 Min: 16 Max: 18 SpO2 Av.2 % Min: 91 % Max: 96 % Intake/Output Summary (Last 24 hours) at 03/22/12 1756 Last data filed at 03/22/12 1016 Gross per 24 hour Intake 1070 ml Output 2300 ml Net -1230 ml No Data Recorded LastCBG Intervention: -- (03/20/122003) Physical Exam: Gen: Alert, NAD Extremities: RLE non-edematous, non-erthematous, Pulse/signal exam: RLE w Triphasic PT and monophasic DP. LABS: Chemistries: Last 72 Hours (or 3 results): Recent Labs Basename 03/22/12 1025 03/22/12 0703 03/22/12 0625 03/21/12 2250 03/21/12 0412 03/20/12 202 1 NA -- -- 141 -- 142 139 K -- -- 3.8 3.2* 3.2* -- CL -- -- 112* -- 107 103 BICARB -- -- 21 -- 26 26 BUN -- -- 3* -- 2* 2* CR -- -- 0.52* -- 0.58* 0.67 GLU 126* 110* 101* -- -- -- CA -- -- 7.5* -- 7.4* 7.1* MG -- -- 1.9 -- 1.7* 0.9* PO4 -- -- -- -- -- -- CBC with diff last 72 hours (or 3 results) Recent Labs Basename 03/22/12 0625 03/21/12 0412 03/20/12 0700 WBC 24.3* 29.0* 25.7* HB 9.6* 9.8* 9.6* HCT 29.9* 31.7* 30.2* PLT 559* 561* 492* NEUTROPERC -- -- -- BANDPCT -- -- -- LYMPHPERC -- -- -- MONOPERC -- -- -- BASOPERC -- -- -- EOSPERC -- -- -- Current Medications: Current facility-administered medications:acetaminophen (aka TYLENOL) tablet 325-650 mg, 32 5-650 mg, Oral, Q6H PRN, Moses Asher MD, 650 mg at 03/19/12 1707 alteplase (aka CATHFLO ACTIVASE) injection 2 mg, 2 mg, Intracatheter, ONCE, Kaylyn Torres ceFEPIme (aka MAXIPIME) IV (minibag+) 2 g, 2 g, Intravenous, Q8H, Raphael Norman MD, 2 g at 03/22/12 1746 codeine tablet 360 mg, 360 mg, Oral, DAILY, Dariela Santoyo MD, 360 mg at 03/22/12 0850 dextrose IV 25 mL, 25 mL, Intravenous, PRN, Bibiana Adams PA-C glucagon (aka GLUCAGEN) injection 1 mg, 1 mg, Intramuscular, PRN, Bibiana Adams PA-C glucose chewable tablet 16 g, 16 g, Oral, Q15MIN PRN, Bibiana Adams PA-C heparin 10 unit/mL IV flush syringe 50 Units, 50 Units, Intravenous, PRN, Chary Doherty MD, 50 Units at 03/15/12 0904 LORazepam (aka ATIVAN) injection 0.5 mg, 0.5 mg, Intravenous, Q6H PRN, Raphael Norman MD, 0 .5 mg at 03/22/12 1746 menthol-zinc oxide (aka CALAZIME) topical paste, , Topical, BID PRN, Bibiana Adams PA-C metroNIDAZOLE (aka FLAGYL) tablet 500 mg, 500 mg, Oral, TID W/MEALS, Gloria Anthony MD, 500 mg at 03/22/12 1618 morphine (aka MS IR) tablet 15 mg, 15 mg, Oral, Q4H PRN, Moses Asher MD, 15 mg at 2 0938 morphine injection 2-4 mg, 2-4 mg, Intravenous, Q4H PRN, Raphael Norman MD, 4 mg at 2 1252 nystatin (aka MYCOSTATIN) cream, , Topical, BID, Gloria Anthony MD omeprazole (aka PRILOSEC) capsule 40 mg, 40 mg, Oral, BID, Dariela Santoyo MD, 40 mg at 03/22 0850 oxyCODONE (immediate release) (aka ROXICODONE) liquid 7.5-15 mg, 7.5-15 mg, Oral, Q6H PRN, Moses Asher MD, 15 mg at 03/19/12 1707 predniSONE (aka DELTASONE) tablet 15 mg, 15 mg, Oral, HS, Dariela Santoyo MD, 15 mg at 03/11 04/22 2243 promethazine (aka PHENERGAN) injection 25 mg, 25 mg, Intravenous, Q6H, Raphael Norman MD, 2 5 mg at 03/22/12 1618 vancomycin (aka VANCOCIN) IV 1.25 g, 1.25 g, Intravenous, Q12H, Xin Rust MD, 1. 25 g at 03/22/12 1252 warfarin (aka COUMADIN) tablet 1 mg, 1 mg, Oral, QPM, Gloria Anthony MD Assessment and Plan: 56 y.o. female POD# 5 s/p embolectomy of R popliteal and tibial arteries Right Leg Ischemia - Life long warfarin with target INR 2-3 - Shower ok, no soaking - Rooke boot, WBAT - Will FU carotid duplex ordered today JERI DIAZ MD [facility] [address] [place] [address] Xin De La Rosa MD - 03/22/2012 8:07 AM PSTI personally interviewed the patient, performed the pertinent parts of the physical examination and personally formulated the plan with the resident. I agree with the MS4 documentation and have documented any additions or exceptions in my progress n ote. Joaquin Hui - 03/22/2012 8:07 AM PST Medicine Progress Note Refer to Attending and Resident Notes for Assessment and Plan Hospital Day # 10 Patient:Mackenzie Hartley, Attending: Xin Rust MD Author:Joaquin Rivera MS4 IID:Mackenzie Hartley is a 56 y.o. female with a history of Chron's, vaginal fistula, and chronic perirectal fistulas who presents from OSH with Chron's flair, multivessel thrombi, found to have PFO, now febrile with bilateral ground glass opacities in upper lobe. 24 Hour Events: IV vanc, cefepime, flagyl Continues to spike fevers, 7:30 am 38.0, HR 107, 39.2 at 5:30 pm. K 3.2 overnight repleted with 40 mEq and now 3.8 Tele: VT runs, ECG normal sinus, no ST elevation, QT interval unchanged from prior ECG Analgesia: Ativan x 2, Morphine 2mg IV x3, phenegran 25mg IV x 1, not given codeine yesterd ay Discontinue CBG Q6H Subjective: Did not sleep well, denies any pain. Nausea and anxiety are the primary complaints. Has e pisodic nonproductive cough. Denies GIVENS, emesis, bowel or bladder complaints. BM x 2 diarrh ea and unchanged. Ambulating. - Current Inpatient Medications Medication Dose Route Frequency oxyCODONE (immediate release) (aka ROXICODONE) liquid 7.5-15 mg 7.5-15 mg Oral Q6H PRN And acetaminophen (aka TYLENOL) tablet 325-650 mg 325-650 mg Oral Q6H PRN ceFEPIme (aka MAXIPIME) IV (minibag+) 2 g 2 g Intravenous Q8H codeine tablet 360 mg 360 mg Oral DAILY dextrose IV 25 mL 25 mL Intravenous PRN glucagon (aka GLUCAGEN) injection 1 mg 1 mg Intramuscular PRN glucose chewable tablet 16 g 16 g Oral Q15MIN PRN heparin 10 unit/mL IV flush syringe 50 Units 50 Units Intravenous PRN LORazepam (aka ATIVAN) injection 0.5 mg 0.5 mg Intravenous Q6H PRN magnesium sulfate IV 1 g 1 g Intravenous ONCE menthol-zinc oxide (aka CALAZIME) topical paste Topical BID PRN metroNIDAZOLE (aka FLAGYL) tablet 500 mg 500 mg Oral TID W/MEALS morphine (aka MS IR) tablet 15 mg 15 mg Oral Q4H PRN morphine injection 2-4 mg 2-4 mg Intravenous Q4H PRN nystatin (aka MYCOSTATIN) cream Topical BID omeprazole (aka PRILOSEC) capsule 40 mg 40 mg Oral BID potassium chloride IV 40 mEq 40 mEq Intravenous ONCE predniSONE (aka DELTASONE) tablet 15 mg 15 mg Oral HS promethazine (aka PHENERGAN) injection 25 mg 25 mg Intravenous Q6H vancomycin (aka VANCOCIN) IV 1.25 g 1.25 g Intravenous Q12H warfarin (aka COUMADIN) tablet 1 mg 1 mg Oral QPM EXAM: 24 Hour Vital Min/Max: Last Vitals: BP 126/57 | Pulse 91 | Temp 39.2 C (102.6 F) | RR 18 | Ht 1.753 m (5' 9") | Wt 76.295 kg (168 lb 3.2 oz) | SpO2 93% | BMI 24.84 kg/(m^2): Temp Av.1 C (100.5 F) Min: 37.4 C (99.3 F) Max: 39.3 C (102.7 F) Systolic (24hrs), Av mmHg, Min:123 mmHg, Max:147 mmHg Diastolic (24hrs), Av mmHg, Min:57 mmHg, Max:89 mmHg Pulse Av.2 Min: 86 Max: 114 Resp Av.7 Min: 16 Max: 18 SpO2 Av.2 % Min: 91 % Max: 96 % Intake/Output Summary (Last 24 hours) at 03/22/12 0807 Last data filed at 03/22/12 0438 Gross per 24 hour Intake 1070 ml Output 2000 ml Net -930 ml Net neg 8L since admisssion Body mass index is 24.84 kg/(m^2). Physical: General: appears appropriate age, laying in bed, anxious and crying, ill but nontoxic Lungs: Bibasilar and bilateral mid-lung early inspiratory rales Heart: regular rate and rhythm, no murmurs, gallops or rubs Abdomen: non distended, NBS, TTP lower quadrants R>L, no guarding, no peritoneal signs Extremities: right lower extremity thrombectomy incision site CDI, TTP minimal erythema. R nonpalpable dorsalis pedis but warm Psych: Anxious, crying CBC with diff last 72 hours (or 3 results) Recent Labs Basename 03/22/12 0625 03/21/12 0412 03/20/12 0700 WBC 24.3* 29.0* 25.7* HB 9.6* 9.8* 9.6* HCT 29.9* 31.7* 30.2* PLT 559* 561* 492* NEUTROPERC -- -- -- BANDPCT -- -- -- LYMPHPERC -- -- -- MONOPERC -- -- -- BASOPERC -- -- -- EOSPERC -- -- -- Chemistries: Last 72 Hours (or 3 results): Recent Labs Basename 03/22/12 0703 03/22/12 0625 03/22/12 0046 03/21/12 2250 03/21/12 0412 03/20/12 202 1 NA -- [address] -- 142 139 K -- 3.8 Given 40 mEq 3.2* 3.2* -- CL -- 112* -- -- 107 103 BICARB -- 21 -- -- 26 26 BUN -- 3* -- -- 2* 2* CR -- 0.52* -- -- 0.58* 0.67 GLU 110* 101* 120* -- -- -- CA -- 7.5* -- -- 7.4* 7.1* MG -- 1.9 -- -- 1.7* 0.9* PO4 -- -- -- -- -- -- Lab Results Component Value Date INRPT 3.03* 03/22/2012 APL studies Positive Lupus inhibitor evaluation, prolonged PTT in mixing 1:1 Neg cardiolipin, neg [id number] Legionella Agg Urine pending Cultures: BLOOD CULTURE [facility] (no units) Date Value 03/19/2012 No growth to date. 03/19/2012 No growth to date. 03/19/2012 No growth to date. 03/19/2012 No growth to date. 03/12/2012 Final Report:No Bacteria or Yeast isolated at 5 days. 03/12/2012 Final Report:No Bacteria or Yeast isolated at 5 days. CULTURE RESULT (no units) Date Value 03/19/2012 C Urine Source: U Midstream Final CULTURE RESULT: No growth (<1000 col/ml) after 24 hours 03/13/2012 C Urine Source: U Midstream Final CULTURE RESULT: No growth (<1000 col/ml) after 24 hours 03/13/2012 C Stool Source: Stool Final CULTURE RESULT: Salmonella, Shigella, Campylobacter and E.coli O157:H7 not isolated Unable to rule out Shiga toxins 1 and 2 CXR 02/19/12 PA Lateral Potential bilateral anterior upper lung ground glass opacification concerning for alveolar hemorrhagic while on warfarin or multifocal pneumonia. Repeat CXR 02/21 pending read Acute Active Problem List 1. Sepsis, acute 2. Electrolyte dyscarias 3. Nausea, acute and episodic 4. Anxiety, acute on chronic 5. Chron's flair, subacute 6. Pain, general subacute 7. Perirectal and vaginal fistulas, chronic 8. Thrombophilia 9. Atelectasis 10. Anemia 11. Thrombocytosis 12. GERD Assessment and Plan: Mackenzie Hartley is a 56 y.o. female with a history of Chron's, vaginal fis jay, and chronic perirectal fistulas who presents from OSH with Chron's flair, multivessel thrombi, found to have PFO, now febrile with bilateral ground glass opacities in upper lobe. #Sepsis: Continues to spike fevers throughout the day with broad coverage abx, except flour oquinolones for atypical PNAs. Tangential and irritable. Spiking fever, tachycardia, and leticia kocytosis in the setting of prednisone, BCx ngtd. Notes that perirectal abscess are not drai indra and are potential source of bacteremia. CXR shows new anterior bilateral opacities in t he setting of reaching therapeutic warfarin and likely alveolar hemorrhage vs mulitlobular H CAP. Fever still concerning for pneumonia, although she has no purulent cough and saturation in the upper 90s on RA. Spiking fever while on abx, not covering atypicals in HAP like legi onella, consider broadening coverage to include levofloxacin. Less likely complicated UTI wi th bland UA dip, although has had chronic UTIs in the past. -repeat CXR PA lateral in pm -F/U Legionella urine study -Re-examine perirectal abscess a.m. -continue IV vanc (start 03/19), IV cefepime (PCN allergy, start 03/20), and PO Flagyl #Electrolyte dyscarsias: K and Mg continue to down trend likely from diarrhea and low PO in take in the setting of sepsis and chron's flair. Although had a VT run, it has resolved. D oes not complain of myalgias. - Recheck KCl and Mg and replete if necessary - telemetry #Nausea - does not tolerate Flagyl PO, and complains of metallic taste, consider discontinu e codeine 360 mg as it is the likely cause of nausea. Morphine also contributing to nausea. Avoid anti-emetics with risk of LQTS. Consider dipyridamole to replace phenegran as it is mo re potent. - Scheduled Phenegran 25 mg Q6H, and wake up patient #Anxiety - in the setting of hospitalization for complicated medical care, has a history of depression, crying today and does not sleep well - Ativan 0.5mg Q6H PRN, for anxiety but likely to treat nausea as well #Crohn's Disease/flare - fistulizing disease with enterovaginal fistula. Previously on infl iximab, stopped due to cost - on prednisone since. Current flare consistent with previous - n/v abdominal pain, watery diarrhea. She's declined colonoscopy. -discontinue prednisone 15mg daily, taper tomorrow starting at 12.5 mg #Pain, subacute - abdominal pain from Chron's flair, thombii, and abscess. Musculoskeletal pain from R popliteal thrombectomy. Controlled on current treatment. Moderately high use of narcotics. -codeine 360 mg PO, for diarrhea consider discontinue as likely cause of nausea -continue oxycodone 15 mg Q6H , tylenol 650mg Q6H -continue Morphine PO and IV and for abdominal pain -Colonoscopy in 4-6 weeks, will ask Mrs. Hartley about her preference of provider #Perirectal and Vaginal fistulas - stable, one perirectal abscess too small for surgical or IR drainage. Likely contributing to sepsis although 03/12 blood cultures ngtd. Does not want surgery to re-evaluate. -re-examine a.m. -vanc, cefepime, and Flagyl. #Thrombophilia - TTE shows right to left PFO, thrombectomy with vascular surgery of right p opliteal without complications, right foot now warmer that yesterday. INR at slightly elevat ed therapeutic range above 3. Lupus inhibitor evaluation positive for elevated PTT, suggest brady of inhibitor in mixing study. Chron's disease is also associated with hypercoagulable s barber: J Gastroenterol. 2004 Jan;39(10):948-54. PubMed PMID: [id number]. - Consult Heme for further studies on platelet inhibitor - doppler pulses - Coumadin 1 mg #Atelectasis - progressive bibasilar inspiratory rales in the setting of immobility, no SOB but febrile. Reports using IS. - IS - encourage to walk #Anemia - iron deficiency likely from Crohn's despite absence of clear hematochezia. Venofe r on 03/16. Stable Hct 30-31. - hct goal >21 - consider additional 200 mg venofer in Apr 2012 #Thrombocytosis - reactive from iron deficiency anemia, sepsis. #GERD - omeprazole BID #Disposition: home when ambulatory; insurance coverage her largest issue, CM looking to ot er options for care since patient has income that does not qualify for jose F/E/N Thrombosis ppx: Warfarin Glucose: not indicated Diet: regular Code: Do Not Resuscitate/Do Not Intubate This patient was seen with GM3, refer to Attending and Resident notes for assessment and pl an. ---- Joaquin Rivera, 4 Pager # [phone] Ajay De La Rosa MD - 03/21/2012 10:41 PM PST3 Internal Medicine Attending Interval note Hospital day: 9 Patient Active Hospital Problem List: 1) *Sepsis/Perirectal abscess/Crohn's disease of both small and large intestine with compl ications - fistulas 2) Pulmonary infiltrates - bilateral, anterior - hemorrhage vs. HCAP 3) Hypokalemia 4) Iron deficiency anemia 5) Leukocytosis 6) Thrombocytosis 7) Popliteal artery thrombosis, right 8) Thrombophilia 9) Hypoalbuminemia Pt c/o nausea a lot this am - demanding 50mg IV phenergan, refusing all po meds, then when offered ativan .5mg demanding 1mg IV. She is redirectable but tired of feeling bad and is worried she isn't eating and ma y be "giving up". Spoke with her twice today. Came by in between and she was sleeping, and 3rd visit she was asleep initially but awoke while I talked to her . ASSESSMENT and RECOMMENDATIONS: Patient Active Hospital Problem List: Sepsis (03/19/2012) Crohn's disease of both small and large intestine with complication (03/12/2012) Perirectal abscess (03/14/2012) Pulmonary infiltrates Assessment: febrile again today, multiple BCs done - neg so far, ID felt fevers related t o crohns w/ fistulas and perirectal abscess now some more concern for possible HCAP I reviewed CXR with Chest Radiologist Terry Weston - despite multifocal pna read by Dr. Whitfield ss today, he felt more likely hemorrhage, less likely PNA will continue cefipime, vanc and flagyl for now - repeat CXR tomorrow am Some borderline sats and using some O2 tonight - HCAP or blood could account for this - if hematemesis or increased hypoxia would need consider reversal of anticoag if acute pulmonary hemorrhage. Spoke with Debi Oconnor in GI today - pt had refused their recs for cscope and perirectal abscess drainage - so they don't have anything to add at this point, did ask her advice on ?parenteral nutrition benefit in this setting and about tapering pred nisone - as previous GI note suggests this was continued not to treat crohns but for concern of possible adrenal suppresion Leukocytosis (03/14/2012) Assessment: WBC in mid 20s until today - upto 29 - crohns contributing + perirectal absce ss +/- possible HCAP Thrombocytosis (03/14/2012) Popliteal artery thrombosis, right (03/14/2012) Thrombophilia (03/14/2012) Assessment: no new emboli clinically, txic on coumadin Hypoalbuminemia (03/14/2012) Assessment: see above ? for GI Hypokalemia (03/21/2012) Assessment: replacing, checking EKGs, QTc borderline high on tele, giving mg also some PVCS and several beat runs of VT on tele - asymptomatic Nausea - profound - did get 50mg IV doses of phenergan earlier this admit - discussed again with pt today after consulting with PharmD 25mg iv is max rec dose in most circumstances, and higher dose is risky - will give 25mg q6 h regularly and at pt request rn should wake her if sleeping when dose due, ativan helped a little - will continue, reglan not safe to add to phenergan, zofran can increase QT rec she divide or decrease her codeine (has taken for years) but 360mg in one dose daily do esn't make a lot of sense considering short 1/2 life and potential for more side effects with codeine, opiates may worsen nausea, too PHYSICAL EXAM: Last Vitals: BP 142/76 | Pulse 106[sinus tach per television news photographer[ | Temp 37.7 C (99.9 F) | R R 16 | Ht 1.753 m (5' 9") | Wt 73.71 kg (162 lb 8 oz) | SpO2 94% | BMI 24.00 kg/(m^2) alerts, but trouble tracking some complex questions and info at bedside I personally interviewed the patient, performed the gunter elements of the physical examinatio n, and personally formulated the assessment and plan with the resident. I agree with the res ident's documentation and have noted any additions above. KIRIT MD YOCASTA I spent a total of 45 mins on care of this patient today - >50% spent on education and coun selling on nausea and pain management, new CXR findings, hypokalemia and other problems abov e -- also coordination of care with pharmD. [facility] DEPARTMENT: [id number]- [facility] Faculty [facility] Place of Service:- Inpatient Date of Service: 03/21/2012 CSN: [id number] Suggested Modifier: GC Resident Involved: Yes Suggested CPT: 17661- Subsequent, Detailed/high complex, 35 min Jennifer Tolentino [facility] - 03/21/2012 12:38 PM PST . Vascular and Endovascular Surgery Inpatient Progress Note Patient name: Mackenzie Hartley Attending Surgeon: Mirela Salgado MD Admit Date: 03/12/2012 Date: 03/21/2012 Subjective: Pt c/o pain in toes at times Objective Vitals: Last Vitals: BP 147/80 | Pulse 95 | Temp 39.3 C (102.7 F) | RR 18 | Ht 1.753 m (5' 9") | Wt 73.71 kg (162 lb 8 oz) | SpO2 91% | BMI 24.00 kg/(m^2) 24 Hour Vital Min/Max: Systolic (24hrs), Av mmHg, Min:121 mmHg, Max:147 mmHg Diastolic (24hrs), Av mmHg, Min:60 mmHg, Max:80 mmHg Pulse Min: 83 Max: 112 Temp Min: 37.1 C (98.8 F) Max: 39.4 C (102.9 F) Resp Min: 18 Max: 20 SpO2 Min: 87 % Max: 95 % Intake/Output Summary (Last 24 hours) at 03/21/12 1239 Last data filed at 03/21/12 0735 Gross per 24 hour Intake 1811 ml Output 3600 ml Net -1789 ml : Physical Exam: Gen: Lethargic, NAD Extremities:R foot with spontaneous movement, pink, warm and dry. Minimal edema. Pulse/signal exam: RLE with triphasic PT signal. Monophasic DP and Peroneal signals. Laboratory data: CBC with diff last 72 hours (or 3 results) Recent Labs Basename 03/21/12 0412 03/20/12 0700 03/19/12 0639 03/18/12 1458 WBC 29.0* 25.7* 24.9* -- HB 9.8* 9.6* 9.9* -- HCT 31.7* 30.2* 30.1* -- PLT 561* 492* 575* -- NEUTROPERC -- -- -- 65|73* BANDPCT -- -- -- 1 LYMPHPERC -- -- -- 14*|18 MONOPERC -- -- -- 14*|8 BASOPERC -- -- -- 1|0 EOSPERC -- -- -- 3|1 Chemistries: Last 72 Hours (or 3 results): Recent Labs Basename 03/21/12 0412 03/20/12 2021 03/20/12 1736 03/20/12 0700 NA 142 139 -- 141 K 3.2* 2.6* -- 2.8* CL 107 103 -- 106 BICARB 26 26 -- 27 BUN 2* 2* -- 2* CR 0.58* 0.67 -- 0.60 GLU 116* 100* 98 -- CA 7.4* 7.1* -- 7.3* MG 1.7* 0.9* -- -- PO4 -- -- -- -- Lab Results Component Value Date INRPT 2.09* 03/21/2012 Assessment and Plan: Mackenzie Hartley is a 56 y.o. Female with multiple complex medical problems; [facility] Vascular Surge ry consulted due to Right leg ischemia at the time of admission. POD# 4 s/p embolectomy of R popliteal and tibial arteries via leg incision. -RLE warm and perfused, + DP/PT doppler signals -Rec. Continue warfarin oral Anticoagulation life-long, target INR 2.0-3.0 -No further surgical intervention anticipated at this time ; medical management per primary team. -Patient may shower but do not submerge incision in bath water. -Ambulate and out of bed to chair as tolerated, RLE WBAT -Rooke Boot -Please obtain Vasc Lab Arterial DELORIS of both legs prior to discharge as new baseline Ok to discharge per [facility] Vascular Surgeons once ambulating and medical issues are stable. Will continue to follow while in patient. [facility] Vascular Surgery Clinic, [facility] [address], phone number [phone] Please schedule followup appointment within 2-3 weeks of surgery for wound check. Dr. Sukumar Salgado, [facility] Vascular Surgery Attending. MERT OLIVA [facility] VASCULAR SURGERY [address] [place] [address] ham, Moses Asher MD - 03/21/2012 6:55 AM PSTAgree with excellent note by Joaquin Rivera, MS4. Please see his not e for retails of overnight events, today's physical exam, and labs. I have made any addendum s to the above below: Mrs. Hartley is a 56 yo F with h/o Crohn's disease and multiple arterial thrombi, recently of f all meds due to loss of insurance coverage, who presented with occlusive arterial thrombus of RLE and celiac arteries, also with non-occlusive thrombus in braches of SMA and likely i schemia of ascending colon; and uncontrolled Crohn's c/b vaginal fistula and amanda-rectal abs cess. Embolectomy of RLE on 03/17/12. Now septic with as of yet unidentified source, but most likely from her known perirectal abscess. Assessment and Plan Sepsis: Patient meets criteria of sepsis: she has a suspected source of infection, has been febrile to as high as 102.9, is tachycardic, and has a WBC count of 29.0 (though this is in the setting of prednisone). Per ID, she will likely continue to spike fevers, though she givens sn't been febrile since 20:00 last night. Her CXR shows RUL opacities which suggest PNA vs p ulmonary hemorrhage. Even in the absence of pulmonary symptoms such as cough, we should have her adequately covered with vanc and cefepime (patient is allergic to PCNs), should this be a pneumonia . U/A is positive for large LE, negative nitrites, and urine WBCs of 15, howeve r patient states she gets chronic UTIs as a complication of her vaginal fistulas. Another po tential source (and most likely) is her known perirectal abscess. We have her on Flagyl for this.BCx and UCx NGTD. Mrs. Hartley has had problems with maintaining IV access. She currently has a PICC for access. -- Repeat CXR in AM to evaluate for pulmonary hemorrhage. We have discussed with her whethe r she would like to pursue ICU level of care should her condition deteriorate, and she has a greed to this. -- Will re-examine her perirectal abscess. -- Continuing vancomycin, cefepime, and Flagyl. -- F/U UCx, BCx. Nausea: Patient with high needs for anti-nauseas, and is demanding 50mg of IV phenergan. Di scussed this with our pharmacist, who advises that the maximum safe dose is 25mg. We have sc heduled the phenergan q6hrs, in an attempt to "stay ahead" of her nausea. We have also added Ativan 0.5mg q6h PRN, which appears to be helping. We have some room to increase the freque ncy of Ativan if this does not succeed in improving her nausea. Will need to discuss with darling herring possibly discontinuing some of her other medications (codeine in particular) which may be contributing to her nausea. Crohn's disease/perirectal abscess: Involvement of both small and large intestine with comp lications of vaginal fistula and perirectal abscess. Ideally, we would like to (1) have her abscess surgically drained, (2) have her undergo colonoscopy, (3) undergo resection of any s everely affected bowel, and then (4) initiate immunosuppressive therapy for her Crohn's. How ever patient is refusing colonoscopy and surgical drainage. She is currently on prednisone b ut we are holding further immunsuppressants pending treatment of perirectal abscess. Our cur rent plan is to continue treatment with ABX and re-image her to evaluate success of treatmen t once her insurance coverage returns. If abscess resolves, we will then re-address need for colonoscopy prior to initiation of immunosuppressive therapy. While this is not ideal, by r efusing treatment, patient leaves us with the above as our best option going forward. Right now, however, her abscess is a potential source of her new sepsis and needs addressing. Cont inuing Flagyl, as above. If she continues to be septic with no other source identified, surg ical drainage may be necessary to save patient's life. Once her acute problems resolve, we w ill need to establish care with landscape artist so that further treatment options can be discussed. Iron deficiency anemia: Will need IV iron, not emergent, will defer this until Apr 11 as w ell when insured. Multiple emboli/thrombophilia: S/P embolectomy of R pop on 03/17/12. Tolerated procedure wel l with good distal pulses. Transitioned to Lovenox on 03/18/12 after her IVs infiltrated. -- Will d/c with financial support for Lovenox. -- Encourage ambulation as tolerated. PFO: Likely source of her TIAs and SMA emboli. Treating with anticoagulation only for now. No clear benefit to surgical closure over anticoagulation. Electrolyte dyscrasias: Potassium and mag repleted overnight. Will monitor and replete PRN. This patient was discussed with my attending, Xin Rust MD, who agrees with the above, including assessment and plan. Moses Anthony MD Neurology Manager Sales [employer] Marketing Pager [phone] oaquin Rivera - 02/2012 6:55 AM PST Medicine Progress Note Refer to Attending and Resident Notes for Assessment and Plan Hospital Day # 9 Patient:Mackenzie Hartley, Attending: Xin Rust MD Author:Joaquin Rivera, MS4 ID:Mackenzie Hartley is a 56 y.o. female with a history of Chron's, vaginal fistula, and chronic perirectal fistulas who presents from OSH with Chron's flair, multivessel thrombi, and found to have PFO on TTE, now febrile. 24 Hour Events: Continue IV vanc, cefepime, flagyl Continues to spike fevers, last 39.2 HR 89, BP 121/60 and sat 90% K 2.6 - ECG with depressed T waves, on Tele given 80 IV K, and Mg repleted Tele in the PM: Multiple VT runs, resolved Analgesia: Ativan, Morphin 15mg PO x 2, 2mg IV x4, phenegran 25mg IV x 2, Codeine x 360 mg Changed to Scheduled phenergan 25 mg Q6H, ativan 0.5 mg Q6H PRN Subjective: Patient crying from nausea. Attending discussed with patient about concern for hypokalemia and hypomagnesia in cardiac arrhthymias. Patient wanted 50 mg Phenergan and scheduled ativ an. Team discussed the risk of increasing phenergan and scheduling ativan. Request being w oken up to take phenergan on schedule. Patient denies chest pain or AMS. Has intermittent non productive cough. Bowel and bladder issues unchanged from yesterday. - Current Inpatient Medications Medication Dose Route Frequency oxyCODONE (immediate release) (aka ROXICODONE) liquid 7.5-15 mg 7.5-15 mg Oral Q6H PRN And acetaminophen (aka TYLENOL) tablet 325-650 mg 325-650 mg Oral Q6H PRN ceFEPIme (aka MAXIPIME) IV (minibag+) 2 g 2 g Intravenous Q12H codeine tablet 360 mg 360 mg Oral DAILY dextrose IV 25 mL 25 mL Intravenous PRN glucagon (aka GLUCAGEN) injection 1 mg 1 mg Intramuscular PRN glucose chewable tablet 16 g 16 g Oral Q15MIN PRN heparin 10 unit/mL IV flush syringe 50 Units 50 Units Intravenous PRN insulin lispro (aka HUMALOG) injection 1-16 Units 1-16 Units Subcutaneous Q6H LORazepam (aka ATIVAN) injection 0.5 mg 0.5 mg Intravenous Q6H PRN menthol-zinc oxide (aka CALAZIME) topical paste Topical BID PRN metroNIDAZOLE (aka FLAGYL) tablet 500 mg 500 mg Oral TID W/MEALS morphine (aka MS IR) tablet 15 mg 15 mg Oral Q4H PRN morphine injection 2-4 mg 2-4 mg Intravenous Q4H PRN nystatin (aka MYCOSTATIN) cream Topical BID omeprazole (aka PRILOSEC) capsule 40 mg 40 mg Oral BID predniSONE (aka DELTASONE) tablet 15 mg 15 mg Oral HS promethazine (aka PHENERGAN) injection 25 mg 25 mg Intravenous Q6H vancomycin (aka VANCOCIN) IV 1.25 g 1.25 g Intravenous Q12H warfarin (aka COUMADIN) tablet 5 mg 5 mg Oral QPM EXAM: General: appears appropriate age, laying in bed in apparent distress, ill but nontoxic 24 Hour Vital Min/Max: Last Vitals: BP 134/68 | Pulse 83 | Temp 37.1 C (98.8 F) | RR 20 | Ht 1.753 m (5' 9") | Wt 73.71 kg (162 lb 8 oz) | SpO2 92% | BMI 24.00 kg/(m^2): Temp Av.9 C (100.3 F) Min: 36.8 C (98.2 F) Max: 39.4 C (102.9 F) Systolic (24hrs), Av mmHg, Min:121 mmHg, Max:147 mmHg Diastolic (24hrs), Av mmHg, Min:60 mmHg, Max:78 mmHg Pulse Av.7 Min: 80 Max: 112 Resp Av Min: 20 Max: 20 SpO2 Av.5 % Min: 87 % Max: 95 % Intake/Output Summary (Last 24 hours) at 03/21/12 0655 Last data filed at 03/21/12 0600 Gross per 24 hour Intake 1461 ml Output 2700 ml Net -1239 ml Body mass index is 24.00 kg/(m^2). Physical: HEENT: neck supple, mouth moist clear Lungs: Bibasilar and bilateral mid-lung early inspiratory rales Heart: regular rate and rhythm, no murmurs, gallops or rubs Abdomen: non distended, NBS, TTP lower quadrants R>L, no guarding, no peritoneal signs Extremities: right lower extremity thrombectomy incision site CDI, TTP but no erythema and minimal induration. R nonpalpable dorsalis pedis but warm. CBC with diff last 72 hours (or 3 results) Recent Labs Basename 03/21/12 0412 03/20/12 0700 03/19/12 0639 03/18/12 1458 WBC 29.0* 25.7* 24.9* -- HB 9.8* 9.6* 9.9* -- HCT 31.7* 30.2* 30.1* -- PLT 561* 492* 575* -- NEUTROPERC -- -- -- 65|73* BANDPCT -- -- -- 1 LYMPHPERC -- -- -- 14*|18 MONOPERC -- -- -- 14*|8 BASOPERC -- -- -- 1|0 EOSPERC -- -- -- 3|1 Chemistries: Last 72 Hours (or 3 results): Recent Labs Basename 03/21/12 0412 03/20/12202003/20/12 1736 03/20/12 0700 NA 142 139 -- 141 K 3.2* 2.6* -- 2.8* CL 107 103 -- 106 BICARB 26 26 -- 27 BUN 2* 2* -- 2* CR 0.58* 0.67 -- 0.60 GLU 116* 100* 98 -- CA 7.4* 7.1* -- 7.3* MG -- 0.9* -- -- PO4 -- -- -- -- Lab Results Component Value Date INRPT 2.09* 2.25 yesterday 03/21/2012 Cultures: BLOOD CULTURE [facility] (no units) Date Value 03/19/2012 No growth to date. 03/19/2012 No growth to date. 03/19/2012 No growth to date. 03/19/2012 No growth to date. 03/12/2012 Final Report:No Bacteria or Yeast isolated at 5 days. 03/12/2012 Final Report:No Bacteria or Yeast isolated at 5 days. CULTURE RESULT (no units) Date Value 03/19/2012 C Urine Source: U Midstream Final CULTURE RESULT: No growth (<1000 col/ml) after 24 hours 03/13/2012 C Urine Source: U Midstream Final CULTURE RESULT: No growth (<1000 col/ml) after 24 hours 03/13/2012 C Stool Source: Stool Final CULTURE RESULT: Salmonella, Shigella, Campylobacter and E.coli O157:H7 not isolated Unable to rule out Shiga toxins 1 and 2 CXR 02/19/12 PA Lateral Potential bilateral anterior upper lung ground glass opacification concerning for alveolar hemorrhagic while on warfarin or multifocal pneumonia. Acute Active Problem List 1. Sepsis, acute 2. Electrolyte dyscarias 3. Nausea, acute and episodic 4. Anxiety, acute on chronic 5. Chron's flair, subacute 6. Pain, general subacute 7. Perirectal and vaginal fistulas, chronic 8. Thrombophilia 9. Atelectasis 10. Anemia 11. Thrombocytosis 12. GERD Assessment and Plan: Mackenzie Hartley is a 56 y.o. female with a history of Chron's, vaginal fis jay, and chronic perirectal fistulas who presents from OSH with Chron's flair, multivessel thrombi, and found to have PFO on TTE, no febrile with likely alveolar hemorrhage while on w arfarin. #Sepsis: Continues to spike fevers throughout the day with broad coverage abx, except flour oquinolones for atypical PNAs. Tangential and irritable. Spiking fever, tachycardia, and l eukocytosis in the setting of prednisone, BCx ngtd. Notes that perirectal abscess are not dr jose francisco and are potential source of bacteremia. CXR shows new anterior bilateral opacities in the setting of reaching therapeutic warfarin and likely alveolar hemorrhage. Fever still concerning for Pneumonia, although she has no purulent cough. Spiking fever while on abx, not covering atypicals in HAP like legionella, consider broadening coverage to include levof loxacin. Less likely complicated UTI with bland UA dip, has had chronic UTIs in the past. -repeat CXR PA lateral in the am -F/U Legionella urine study -Re-examine perirectal abscess a.m. -continue IV vanc (start 03/19), IV cefepime (PCN allergy, start 03/20), and PO Flagyl. #Electrolyte dyscarsias: K still low 2.8, has pain in right IRA but likely due to recent brice rgery, has had intermittent arrhythmias with VT runs, but no myalgias, no constipation - Recheck KCl and Mg and replete if necessary - telemetry #Nausea - does not tolerate Flagyl PO, and complains of metallic taste, consider discontinu e codeine 360 mg as it is the likely cause of nausea. Morphine also contributing to nausea. Avoid anti-emetics with risk of LQTS. Consider anti-depressants - Scheduled Phenegran 25 mg Q6H, and wake up patient #Anxiety - in the setting of hospitalization for complicated medical care, has a history of depression, crying today and does not sleep well - Ativan 0.5mg Q6H PRN, for anxiety but likely to treat nausea as well #Crohn's Disease/flare - fistulizing disease with enterovaginal fistula. Previously on infl iximab, stopped due to cost - on prednisone since. Current flare consistent with previous - n/v abdominal pain, watery diarrhea. She's declined colonoscopy. -continue prednisone 15mg daily, may consider taper #Pain, subacute - abdominal pain from Chron's flair, thombii, and abscess. Musculoskeletal pain from R popliteal thrombectomy. Moderately controlled 5-6/10 pain on current treatment. Moderately high use of narcotics. -codeine 360 mg PO, for diarrhea consider discontinue as likely cause of nausea -continue oxycodone 15 mg Q6H , tylenol 650mg Q6H -continue Morphine PO and IV and for abdominal pain -Colonoscopy in 4-6 weeks, will ask Mrs. Hartley about her preference of provider #Perirectal and Vaginal fistulas - stable, one perirectal abscess too small for surgical or IR drainage. Likely contributing to sepsis although 03/12 blood cultures ngtd. Does not wan t surgery to re-evaluate. -re-examine a.m. -vanc, cefepime, and Flagyl. #Thrombophilia - TTE shows right to left PFO, thrombectomy with vascular surgery of right p opliteal without complications, right foot now warmer that yesterday. INR at therapeutic ran ge 2-3. -f/u APLA antibodies - doppler pulses - Coumadin 2.5mg #Atelectasis - progressive bibasilar inspiratory rales in the setting of immobility, no SOB but febrile. Reports using IS. - IS - encourage to walk #Anemia - iron deficiency likely from Crohn's despite absence of clear hematochezia. Venofe r on 03/16. Stable Hct 30-31. - hct goal >21 - consider additional 200 mg venofer in Apr 2012 #Thrombocytosis - reactive from iron deficiency anemia, sepsis. #GERD - omeprazole BID #Disposition: home when ambulatory; insurance coverage her largest issue F/E/N Thrombosis ppx: Warfarin Glucose: not indicated Diet: regular Code: Do Not Resuscitate/Do Not Intubate This patient was seen with GM3, refer to Attending and Resident notes for assessment and pl an. ---- Joaquin Rivera, MS4 Pager # [phone] Xin De La Rosa M D - 03/20/2012 11:09 PM PST3 Internal Medicine Attending Interval note Hospital day: 8 Patient Active Hospital Problem List: 1) *Sepsis 2) Crohn's disease of both small and large intestine with complication 3) Perirectal abscess 4) Iron deficiency anemia 5) Thrombocytosis 6) Popliteal artery thrombosis, right 7) Thrombophilia 8) Hypoalbuminemia 9) Hypokalemia ASSESSMENT and RECOMMENDATIONS: Patient Active Hospital Problem List: Sepsis (03/19/2012) Perirectal abscess (03/14/2012) Leukocytosis (03/14/2012) Assessment: pt was afebrile initially this admit, but spiked high temps last two days, co uld be extensive crohns and small perirectal abscess as ID suggests, but concerning, WBCs have remained > 20k without recent spike. Antibiotics changed yesterd ay bc of fever spike and tachycardia concerning for evolving sepsis. Mental status stable, but isn't normal. If fevers continue or pt declines consider reimaging to reassess perirectal abscess and pos sible new abscess formation. Pt has refused drainage of abscess and colonoscopy rec by GI. We reviewed this decision with her today and she does appear to und erstand risks of her refusal, but did stay would consider drainage if worse or not improving and we could be sure abscess drainage was only option left. Also possible infiltrate on P. CXR today, but HCAP unlikely w/o cough or abnormal lung exam - 2 View CXR to better assess tomorrow. Most recent CT 03/15/12 showed: Abdomen: ...There is mesenteric fat stranding to the region of the ascending colon with mildly prominent bowel loops. There is evidence of prior bowel surgery in the region of the cecum. There is no evidence of a mechanical bowel obstruction, pneumatosis, or pneumoperitoneum. A small focal area of fluid collection is seen adjacent to the rectum, unchanged compared to the most recent prior study. There is no free pelvic fluid or lymphadenopathy. 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) Thrombophilia (03/14/2012) Assessment: LMWH d/c today bc coumadin therapeutic, right foot looks good post embolectom y Hypokalemia - 2.8 this am, giving po, rechecking tonight with Mg level also (was low on adm it 1.1) PHYSICAL EXAM: Last Vitals: BP 121/60 | Pulse 89 | Temp 37.6 C (99.7 F) | RR 20 | Ht 1.753 m (5' 9") | Wt 73.71 kg (162 lb 8 oz) | SpO2 90% | BMI 24.00 kg/(m^2) alert, did need to repeat compliated questions and information at times, at bedside Chest - CTA, normal effort CVS - RRR, no g, m, r Abdomen - BS +, soft, mildly tender in UQs, mod tender in lower quads, w/o rebound or guard ing she asked us to wait until tomorrow to exam her perineal area I personally interviewed the patient, performed the gunter elements of the physical examinatio n, and personally formulated the assessment and plan with the resident. I agree with the res ident's documentation and have noted any additions above. KIRIT MD [facility] DEPARTMENT: [id number]- [facility] Faculty P[facility] Place of Service:- Inpatient Date of Service: 03/20/2012 CSN: [id number] Suggested Modifier: Resident Involved: Yes Suggested CPT: 09057- Subsequent, Detailed/high complex, 35 min Jennifer Tolentino FNP - 03/20/2012 3:36 PM PST . Vascular and Endovascular Surgery Inpatient Progress Note Patient name: Mackenzie Hartley Attending Surgeon: Mirela Salgado MD Admit Date: 03/12/2012 Date: 03/20/2012 Subjective: Pt appears withdrawn, lethargic today Objective Vitals: Last Vitals: BP 137/62 | Pulse 110 | Temp 39.4 C (102.9 F) | RR 20 | Ht 1.753 m (5' 9") | Wt 73.71 kg (162 lb 8 oz) | SpO2 95[different finger[% | BMI 24.00 kg/(m^2) 24 Hour Vital Min/Max: Systolic (24hrs), Av mmHg, Min:125 mmHg, Max:140 mmHg Diastolic (24hrs), Av mmHg, Min:62 mmHg, Max:78 mmHg Pulse Min: 80 Max: 110 Temp Min: 36.8 C (98.2 F) Max: 39.4 C (102.9 F) Resp Min: 20 Max: 22 SpO2 Min: 89 % Max: 95 % Intake/Output Summary (Last 24 hours) at 03/20/12 1536 Last data filed at 03/20/12 0800 Gross per 24 hour Intake 1695 ml Output 1000 ml Net 695 ml Physical Exam: Gen: Lethargic, depressed affect today, NAD Extremities:R foot with spontaneous movement, pink, warm and dry. Minimal edema. Pulse/signal exam: RLE with triphasic PT signal. Monophasic DP and Peroneal signals. Laboratory data: CBC with diff last 72 hours (or 3 results) Recent Labs Basename 03/20/12 0700 03/19/12 0639 03/18/12 1458 WBC 25.7* 24.9* 25.4* HB 9.6* 9.9* 10.0* HCT 30.2* 30.1* 31.9* PLT 492* 575* 576* NEUTROPERC -- -- 65|73* BANDPCT -- -- 1 LYMPHPERC -- -- 14*|18 MONOPERC -- -- 14*|8 BASOPERC -- -- 1|0 EOSPERC -- -- 3|1 Chemistries: Last 72 Hours (or 3 results): Recent Labs Basename 03/20/12 1312 03/20/12 1024 03/20/12 0700 03/19/12 0639 03/18/12 0810 NA -- -- 141 142 143 K -- -- 2.8* 3.4 3.3* CL -- -- 106 106 109* BICARB -- -- 27 25 24 BUN -- -- 2* 3* 2* CR -- -- 0.60 0.60 0.73 GLU 105* 107* 105* -- -- CA -- -- 7.3* 7.9* 8.0* MG -- -- -- -- -- PO4 -- -- -- -- -- Assessment and Plan: Mackenzie Hartley is a 56 y.o. Female with multiple complex medical problems; [facility] Vascular Surge ry consulted due to Right leg ischemia at the time of admission. POD# 3 s/p embolectomy of R popliteal and tibial arteries via leg incision. -RLE warm and perfused, + DP/PT doppler signals -Rec. Continue warfarin oral Anticoagulation life-long, target INR 2.0-3.0 -No further surgical intervention anticipated at this time -Patient may shower but do not submerge incision in bath water. -Ambulate and out of bed to chair as tolerated, RLE WBAT -Please obtain [facility] Lab Arterial duplex ultrasound/DELORIS of both legs prior to discharge as n ew baselineObtain ABIs with waveforms To establish new blood-flow baseline Ok to discharge per [facility] Vascular Surgeons once ambulating and medical issues are stable. Will continue to follow while in patient. [facility] Vascular Surgery Clinic, [facility] [address], phone number [phone] Please schedule followup appointment within 2-3 weeks of surgery for wound check. Dr. Sukumar Salgado, [facility] Vascular Surgery Attending. MERT OLIVA [facility] VASCULAR SURGERY [address] [place] [id number] aphael Norman - 7:58 AM PSTI agree with the assessment and plan as it is stated in the note by Mariely Rivera, MS4 Mrs. Hartley continued to have fevers today with intermittent tachycardia. BP and ox sat norm al and stable. Her exam is notable for the following: Pleasant, conversational Lungs with bibasilar rhonchi, symmetric, no egophany. No murmurs, NR/RR Abdomen is soft, nt/nd with normal BS PT pulse on right normal, no erythema or edema at surgical site of right leg. Mrs. Mackenzie Hartley is a pleasant 56yo woman in a difficult financial situation and a hx of cr ohn's complicated by vaginal and perirectal fistulae who presented with worsened nausea and perirectal abscesses found to have arterial thrombi and now with continued fevers. Despite broadening of antibiotics from cipro/flagyl to vanc/cefepime/flagyl for broad cover age, the patient continues to spike fevers. Her WBC is chronically elevated and is not a hel pful marker of infection. Today's chest radiograph was concerning for pneumonia but the kendra ent does not have pulmonary symptoms so this is less likely. The most likely source of infec tion still remains these abscesses. Our plan is to continue to investigate for other causes of infection and we will continue broad IV antibiotics overnight. Appreciate ID recs and wi ll likely convert to cipro/flagyl per their recs in the am. As they suggest, fevers may cont inue and are not necessarily evidence of worsening infection. Ideally, we would have the patient's abscesses treated surgically and also do a colonoscopy , but we are delaying per patient's request in her difficult financial setting. We are treat ing crohn's with prednisone and managing nausea with anti-emetics. Her K was quite low today and we are replacing this with potassium and magnesium. Poor absorption and GI losses is dasha bailey contributing. Reassess dispo tomorrow. The patient is full code. The patient was seen and examined with Dr. Rust, who agrees with the above assessment and plan. Raphael Norman MD Internal Medicine, PGY-2 [id number] oaquin Rivera - 2011 7:58 AM PST Medicine Progress Note Refer to Attending and Resident Notes for Assessment and Plan Hospital Day # 8 Patient:Mackenzie Hartley, Attending: Xin Rust MD Author:Joaquin Rivera, MS4 ID:Mackenzie Hartley is a 56 y.o. female with a history of Chron's, vaginal fistula, and chronic perirectal fistulas who presents from OSH with Chron's flair, multivessel thrombi, and found to have PFO on TTE, now febrile. 24 Hour Events: Febrile: yesterday 102.6 @1600 hrs,Tylenol/oxy 1700 hrs, cefepime 2037 hrs 100.6@2230 hrs, now 100@0718 hrs, 102.9 @ 1500hrswith HR110 Sat 89% RA ID rec: D/C vanc and cefepime, restart cipro and continue flagyl PICC placed left arm this morning, only access Pain: Codeine 360 mg Morphine Q4H: yesterday 15mg PO x 3, 2mg IV x 1 now 15mg PO x 2, 2mg x 3 Phenergan increase to 25mg Q6H From 12.5mg Pharm recs: INR therapeutic range 2.25, yesterday 1.59 Discontinue Lovenox, decrease warfarin to 2.5 mg tonight Subjective: Did not sleep well. Nausea after flagyl, anxious, pain unchanged -09/18, chronic loose sto ol that are brown, non-productive cough, reports that perirectal abscesses not draining (not painful or swollen). Current Inpatient Medications Medication Dose Route Frequency oxyCODONE (immediate release) (aka ROXICODONE) liquid 7.5-15 mg 7.5-15 mg Oral Q6H PRN And acetaminophen (aka TYLENOL) tablet 325-650 mg 325-650 mg Oral Q6H PRN ceFEPIme (aka MAXIPIME) IV (minibag+) 2 g 2 g Intravenous Q12H codeine tablet 360 mg 360 mg Oral DAILY dextrose IV 25 mL 25 mL Intravenous PRN glucagon (aka GLUCAGEN) injection 1 mg 1 mg Intramuscular PRN glucose chewable tablet 16 g 16 g Oral Q15MIN PRN heparin 10 unit/mL IV flush syringe 50 Units 50 Units Intravenous PRN insulin lispro (aka HUMALOG) injection 1-16 Units 1-16 Units Subcutaneous Q6H menthol-zinc oxide (aka CALAZIME) topical paste Topical BID PRN metroNIDAZOLE (aka FLAGYL) tablet 500 mg 500 mg Oral TID W/MEALS morphine (aka MS IR) tablet 15 mg 15 mg Oral Q4H PRN morphine injection 2-4 mg 2-4 mg Intravenous Q4H PRN nystatin (aka MYCOSTATIN) cream Topical BID omeprazole (aka PRILOSEC) capsule 40 mg 40 mg Oral BID potassium & sodium phosphates (aka NEUTRA-PHOS, PHOS-NAK) 280-160-250 mg packet 1 Packe t 1 Packet Oral QID predniSONE (aka DELTASONE) tablet 15 mg 15 mg Oral HS promethazine (aka PHENERGAN) injection 25 mg 25 mg Intravenous Q6H PRN vancomycin (aka VANCOCIN) IV 1 g 1 g Intravenous Q12H warfarin (aka COUMADIN) tablet 2.5 mg 2.5 mg Oral QPM EXAM: General: appears appropriate age, laying in bed in apparent distress, ill but nontoxic 24 Hour Vital Min/Max: Last Vitals: BP 137/62 | Pulse 110 | Temp 39.4 C (102.9 F) | RR 20 | Ht 1.753 m (5' 9") | Wt 73.71 kg (162 lb 8 oz) | SpO2 95[different finger[% | BMI 24.00 kg/(m^2): Temp Av.2 C (100.7 F) Min: 37.6 C (99.7 F) Max: 39.2 C (102.6 F) Systolic (24hrs), Av mmHg, Min:125 mmHg, Max:140 mmHg Diastolic (24hrs), Av mmHg, Min:62 mmHg, Max:78 mmHg Pulse Av.4 Min: 79 Max: 105 Resp Av Min: 18 Max: 22 SpO2 Av.1 % Min: 89 % Max: 95 % Intake/Output Summary (Last 24 hours) at 03/20/12 0758 Last data filed at 03/20/12 0400 Gross per 24 hour Intake 1935 ml Output 1650 ml Net 285 ml Body mass index is 24.00 kg/(m^2). Physical: HEENT: neck supple, mouth moist clear Lungs: Bibasilar early inspiratory rales Heart: regular rate and rhythm, no murmurs, gallops or rubs Abdomen: non distended, NBS, TTP lower quadrants R>L, no guarding, no peritoneal signs Extremities: right lower extremity thrombectomy incision site CDI, TTP but no erythema and minimal induration. R nonpalpable dorsalis pedis but warm. Doppler with audible dorsalis p yovana and posterior tibialis bilaterally, CBC with diff last 72 hours (or 3 results) Recent Labs Basename 03/20/12 0700 03/19/12 0639 03/18/12 1458 WBC 25.7* 24.9* 25.4* HB 9.6* 9.9* 10.0* HCT 30.2* 30.1* 31.9* PLT 492* 575* 576* NEUTROPERC -- -- 65|73* BANDPCT -- -- 1 LYMPHPERC -- -- 14*|18 MONOPERC -- -- 14*|8 BASOPERC -- -- 1|0 EOSPERC -- -- 3|1 Chemistries: Last 72 Hours (or 3 results): Recent Labs Basename 03/20/12 0700 03/20/12 0608 03/19/12 2352 03/19/12 0639 03/18/12 0810 NA 141 -- -- 142 143 K 2.8* -- -- 3.4 3.3* CL 106 -- -- 106 109* BICARB 27 -- -- 25 24 BUN 2* -- -- 3* 2* CR 0.60 -- -- 0.60 0.73 GLU 105* 126* 146* -- -- CA 7.3* -- -- 7.9* 8.0* MG -- -- -- -- -- PO4 -- -- -- -- -- Corrected Ca: 9.3 Liver Tests: Last 72 hours (or 3 results) Recent Labs Basename 03/18/12 0810 AST -- ALT -- TBILI 0.4 AP -- ALB -- TP -- Lab Results Component Value Date INRPT 2.25* 03/20/2012 - [facility] 753 CXR (03/20/12): compared to 03/19/2012 "IMPRESSION: 1. Interval placement of left PICC tip in distal SVC. 2. Irregular right upper lobe parenchymal opacities concerning for pneumonia in the appropriate clinical setting. 3. Small right pleural effusion with bibasilar opacities likely representing atelectasis." Pending: Lupus inhibitor Anti B2 glycoprotein 1 Anticardiolipin 03/12/12 Blood cx, NGTD Cultures: BLOOD CULTURE [facility] (no units) Date Value 03/12/2012 Final Report:No Bacteria or Yeast isolated at 5 days. 03/12/2012 Final Report:No Bacteria or Yeast isolated at 5 days. CULTURE RESULT (no units) Date Value 03/13/2012 C Urine Source: U Midstream Final CULTURE RESULT: No growth (<1000 col/ml) after 24 hours 03/13/2012 C Stool Source: Stool Final CULTURE RESULT: Salmonella, Shigella, Campylobacter and E.coli O157:H7 not isolated Unable to rule out Shiga toxins 1 and 2 Assessment and Plan: Mackenzie Hartley is a 56 y.o. female with a history of Chron's, vaginal fis jay, and chronic perirectal fistulas who presents from OSH with Chron's flair, multivessel thrombi, and found to have PFO on TTE. #Sepsis: Continues to spike fevers throughout the day with broad coverage abx, except flour oquinolones for atypical PNAs. Spiking fever, tachycardia, and leukocytosis in the setting of prednisone, BCx ngtd. Notes that perirectal abscess are not draining and are potential so urce of bacteremia. CXR shows new RUL opacities concerning for Pneumonia, although she has no purulent cough and lung exam unchanged from Tuesday. Spiking fever while on abx, not co vering atypicals in HAP like legionella, consider broadening coverage to include levofloxaci n. Less likely complicated UTI with bland UA dip, has had chronic UTIs in the past. -F/U ID recs -Legionella urine study -Re-examine perirectal abscess a.m. -continue IV vanc (start 03/19), IV cefepime (PCN allergy, start 03/20), and PO Flagyl. #Perirectal Abscess - too small for surgical or IR drainage. Likely responsible for sepsis. 03/12 blood cultures ngtd. Clinically stable. Does not want surgery to re-evaluate. -re-examine a.m. -D/C cipro 500mg, -vanc, cefepime, and Flagyl. #Thrombophilia - TTE shows right to left PFO, thrombectomy with vascular surgery of right p opliteal without complications, right foot now warmer that yesterday. INR at therapeutic ra nge 2-3. -f/u APLA antibodies -doppler pulses - Discontinue Lovenox - Decrease Coumadin 2.5mg #Crohn's Disease/flare - fistulizing disease with enterovaginal fistula. Previously on infl iximab, stopped due to cost - on prednisone since. Current flare consistent with previous - n/v abdominal pain, watery diarrhea. She's declined colonoscopy. -continue prednisone 15mg daily, may consider taper #Pain, subacute - abdominal pain from Chron's flair, thombii, and abscess. Musculoskeletal pain from R popliteal thrombectomy. Moderately controlled 5-6/10 pain on current treatment . Moderately high use of narcotics. -codeine 360 mg PO -continue oxycodone 15 mg Q6H , tylenol 650mg Q6H -continue percocet for abdominal pain -Colonoscopy in 4-6 weeks, will ask Mrs. Hartley about her preference of provider #Atelectasis - progressive bibasilar inspiratory rales in the setting of immobility, no SOB but febrile with potential RUL PNA. Reports using IS. - IS - encourage to walk #Electrolyte dyscarsias: K still low 2.8, has pain in right IRA but likely due to recent brice rgery, no myalgias, no constipation - Recheck Mg - Replete with KCl #Nausea - does not tolerate Flagyl PO, and complains of metallic taste - Increase Phenegran from 12.5 to 25 mg Q6H #Anxiety - in the setting of hospitalization for complicated medical care, has a history of depression, crying today and does not sleep well - Ativan 1 mg in the evening #Anemia - iron deficiency likely from Crohn's despite absence of clear hematochezia. Venofe r on 03/16. Stable Hct 30-31. - hct goal >21 - consider additional 200 mg venofer in Apr 2012 #Thrombocytosis - reactive from iron deficiency anemia, sepsis. #GERD - omeprazole BID #Disposition: home when ambulatory; insurance coverage her largest issue This patient was seen with [facility], refer to Attending and Resident notes for assessment and pl an. ---- Joaquin Goodwinidad, MS4 Pager # [phone] Juma Pimentel MD - 12/2011 3:35 PM PST Inpatient Vascular Surgery Progress Note Hospital Day:7 Author; JUMA CARRINGTON MD Attending Physician: Chary Doherty MD 24 hr events: No Acute Events Overnight Patient in pain last night, IV not working well overnight and unable to get much relief wit hout IV pain medications Difficulty sleeping R foot having more movement than before even with the increasing pain, able stand-up and si t on bedside cammode multiple times yesteraday Vitals: Last Vitals: BP 130/74 | Pulse 79 | Temp 37.8 C (100 F) | RR 20 | Ht 1.753 m (5' 9") | Wt 74.8 kg (164 lb 14.5 oz) | SpO2 94% | BMI 24.35 kg/(m^2) O2 Delivery Device: None (room air) (03/19/12 1219) 24 Hour Vital Min/Max: Systolic (24hrs), Av mmHg, Min:124 mmHg, Max:147 mmHgDiastolic (24hrs), Av mmHg, M in:69 mmHg, Max:93 mmHgPulse Av Min: 79 Max: 105 Temp Av.8 C (100.1 F) Min: 37.4 C (99.3 F) Max: 38.1 C (100.6 F) Resp Av.8 Min: 18 Max: 20 SpO2 Av.5 % Min: 92 % Max: 94 % Intake/Output Summary (Last 24 hours) at 03/19/12 1535 Last data filed at 03/19/12 1500 Gross per 24 hour Intake 780 ml Output 2920 ml Net -2140 ml Physical Exam: Physical Exam Gen: Alert, NAD Extremities:R foot with spontaneous movement, pink, warm and dry. Minimal edema. [facility], c/d/i. Pulse/signal exam: RLE with triphasic PT signal. Monophasic DP and Peroneal signals. Perone al better than DP signal. LABS: Chemistries: Last 72 Hours (or 3 results): Recent Labs Basename 03/19/12 1305 03/19/12 0639 03/18/12 2354 03/18/12 0810 03/17/12 0655 NA -- 142 -- 143 143 K -- 3.4 -- 3.3* 2.9* CL -- 106 -- 109* 109* BICARB -- 25 -- 24 23 BUN -- 3* -- 2* 3* CR -- 0.60 -- 0.73 0.66 GLU 114* 95 108* -- -- CA -- 7.9* -- 8.0* 8.3* MG -- -- -- -- -- PO4 -- -- -- -- -- CBC with diff last 72 hours (or 3 results) Recent Labs Basename 03/19/12 0639 03/18/12 1458 03/18/12 0810 WBC 24.9* 25.4* 23.8* HB 9.9* 10.0* 9.7* HCT 30.1* 31.9* 30.9* PLT 575* 576* 286 NEUTROPERC -- 65|73* -- BANDPCT -- 1 -- LYMPHPERC -- 14*|18 -- MONOPERC -- 14*|8 -- BASOPERC -- 1|0 -- EOSPERC -- 3|1 -- Current Medications: Current facility-administered medications:acetaminophen (aka TYLENOL) tablet 325-650 mg, 32 5-650 mg, Oral, Q6H PRN, Moses Asher MD cephALEXin (aka KEFLEX) capsule 250 mg, 250 mg, Oral, Q6H, Moses Asher MD, 250 mg at 120 12/21 1514 ciprofloxacin (aka CIPRO) tablet 500 mg, 500 mg, Oral, BID, Gloria Anthony MD, 500 mg at 12/21 0920 codeine tablet 360 mg, 360 mg, Oral, DAILY, Dariela Santoyo MD, 360 mg at 03/19/12 0920 dextrose IV 25 mL, 25 mL, Intravenous, PRN, Bibiana Adams PA-C enoxaparin (aka LOVENOX) injection 80 mg, 80 mg, Subcutaneous, Q12H, Moses Asher MD, 80 m g at 03/19/12 1305 glucagon (aka GLUCAGEN) injection 1 mg, 1 mg, Intramuscular, PRN, Bibiana Adams PA-C glucose chewable tablet 16 g, 16 g, Oral, Q15MIN PRN, Bibiana Adams PA-C heparin 10 unit/mL IV flush syringe 50 Units, 50 Units, Intravenous, PRN, Chary Doherty MD, 50 Units at 03/15/12 0904 insulin lispro (aka HUMALOG) injection 1-16 Units, 1-16 Units, Subcutaneous, Q6H, Bibiana Adams PA-C, 2 Units at 03/14/12 1340 menthol-zinc oxide (aka CALAZIME) topical paste, , Topical, BID PRN, Bibiana Adams PA-C metroNIDAZOLE (aka FLAGYL) tablet 500 mg, 500 mg, Oral, TID W/MEALS, Gloria Anthony MD, 500 mg at 03/19/12 1305 morphine (aka MS IR) tablet 15 mg, 15 mg, Oral, Q4H PRN, Moses Asher MD, 15 mg at 2 1305 morphine injection 2-4 mg, 2-4 mg, Intravenous, Q4H PRN, Raphael Norman MD nystatin (aka MYCOSTATIN) cream, , Topical, BID, Gloria Anthony MD omeprazole (aka PRILOSEC) capsule 40 mg, 40 mg, Oral, BID, Dariela Santoyo MD, 40 mg at 12/21 0920 oxyCODONE (immediate release) (aka ROXICODONE) liquid 7.5-15 mg, 7.5-15 mg, Oral, Q6H PRN, Moses Asher MD potassium chloride (aka KLOR-CON) packet 20 mEq, 20 mEq, Oral, ONCE, Moses Asher MD predniSONE (aka DELTASONE) tablet 15 mg, 15 mg, Oral, HS, Dariela Santoyo MD, 15 mg at 11/20 215 promethazine (aka PHENERGAN) tablet 25 mg, 25 mg, Oral, Q6H, Moses Asher MD, 25 mg at 12/21 1514 warfarin (aka COUMADIN) tablet 5 mg, 5 mg, Oral, QPM, Gloria Anthony MD, 5 mg at 03/18/12 21 55 Assessment and Plan: 56 y.o. female POD# 2 s/p embolectomy of R popliteal adn tibial arteries. Appropriate post- op course. Ambulate as tolerated, encourage OOB even to chair. No stiches to remove Cont. Anticoagulation life-long. OK to continue warfarin No further surgical intervention anticipated at this time Obtain ABIs with waveforms via Vascular Lab prior to DC in order to establish new blood-marcos w baseline if pulses not clearly palpable tomorrow. Ok to discharge from vascular perspective once ambulating Attending of record is Dr. Salgado. JUMA CARRINGTON MD [facility] [address] [place] [address] Chary Moore M D - 03/19/2012 9:14 AM PSTMEDICINE ATTENDING PROGRESS NOTE ADMIT DATE: 03/12/2012 7:10 PM TODAY'S DATE: 03/19/2012 (HOSPITAL DAY 7) Attending Physician: Chary Doherty MD I personally interviewed the patient, performed the gunter elements of the physical examinatio n, have developed an updated assessment and plan together with the residents, Drs. Norman and Gabrielle. I agree with the plans as documented. Assessment/Plan: Unfortunate 56 yo F with h/o crohn's disease and arterial thrombosis, who after losing her insurance and stopping Remicaide/warfarin, presented with uncontrolled Crohn's with perirect al abscess and multiple fistulae, as well as multiple arterial thrombi including nonocclusiv e ileocecal embolus with e/o bowel infarct and occlusive R popliteal thrombus now s/p thromb ectomy. She had been doing well s/p thrombectomy, was mostly transitioned to PO meds and pre paring for discharge, but now appears septic today from undetermined source Patient Active Hospital Problem List: 1) *Sepsis - multiple possible sources including worsening of her known rectal abscess for which she has refused drainage, urine (recent wolf and air in bladder on CT indicating pos sible fistula), recent arterial surgery, HAP (coughing last night),or new intraabdominal inf ection with poorly controlled crohn's. Has been on cipro/flagyl so suspect Gram positives or resistant GNR. Agree with plan to re-culture blood, urine, CXR, broaden her coverage - cons ider cefepime/vanc/flagyl, we must obtain better IV access. Perhaps this will push her to ag ree to drainage of rectal abscess? 2) Crohn's disease of both small and large intestine with complication - Uncontrolled off of Remicaide. Recommendation of GI has been to treat perirectal abscess with definitive cabrera rodríguez by EGS or IR (which she has refused), then colonoscopy in 4-6 weeks to evaluate severit y of disease including possible need for surgical therapy (which she has also refused). See Dr. Casiano's thoughtful note from 03/14 for details. Therefore the [id number] plan givens s been to allow her abscess to continue it's slow spontaneous drainage via rectum and cover with flagyl/cipro x2-3 weeks, with PCP and GI follow-up as outpt, for re-eval and continued discussion about biologic therapy. Unable to start biologic therapy now given active abscess /infection and her disinclination to have this definitely treated. 3) Perirectal abscess 4) Iron deficiency anemia - will need IV iron repletion per heme. Have planned to hold thi s as inpatient, and initiate after Apr 11 when she has insurance. 5) Leukocytosis 6) Thrombocytosis - mulitfactorial with inflammatory state, significant iron deficiency. W as reportedly recently >1million 7) Popliteal artery thrombosis, right - s/p thrombectomy 8) Thrombophilia - possibly related to crohn's, thrombophilia, testing APLA. Will need lif elong coumadin with goal INR 2.5-3. Given her financial situation, Cirilo has agreed to d iscount INR checks until she is insured after Apr 11, coumadin on $4 plan. Lovenox bridge to be covered by [facility]. 9) Occlusive thrombus 10) Hypoalbuminemia 11) Hypophosphatemia 12) TIA (transient ischemic attack) - with PFO 13) PFO (patent foramen ovale) - plan is for lifelong coumadin. No additional benefit from device closure per CLOSURE I trial. Chary Doherty MD Chief Resident, Internal Medicine Pager: [phone] [facility] DEPARTMENT: Hosp- [id number] Place of Service: Date of Service: 03/19/2012 CSN: [id number] Modifiers:GC Resident Involved: Yes Suggested CPT: 68954 Subsequent Visit Detailed/High complexity 35 min I have spent 35 minutes with the patient of which more than 50% was spent counseling ham, Moses Asher MD - 03/19/2012 6:45 AM PST General Internal Medicine 3 Progress Note Patient Name: Mackenzie Hartley Admission Date: 03/12/2012 7:10 PM HD: 7 24 Hour Events: -- Spiked a fever to 100.6 last night at about 10pm. BCx and UCx sent. Patient endorses new transient cough at time of fever spike, states she woke up around 3am with pillow soaked fr om sweat, and "felt her fever break". No SOB or dysuria. -- Spiked another temp of 100.4 later in the morning, then 102.6 in the afternoon -- Consultation to MICU fellow for placement of EJ, which will be attempted under U/S kelsea nce. Current Symptoms: Nausea -- chronic issue for her, states it is worse than before. Pain -- Limits her motivation to ambulate. Physical Examination: Last 24 hour min/max Temp: 37.4 C (99.3 F) Temp Min: 37.1 C (98.8 F) Max: 38.1 C (100.6 F) Pulse: 82 Pulse Min: 73 Max: 105 Resp: 18 Resp Min: 18 Max: 20 BP: 124/69 mmHg BP Min: 124/69 Max: 140/74 SpO2: 92 % SpO2 Min: 92 % Max: 92 % Body mass index is 24.35 kg/(m^2). General: Awake, alert female in mild distress -- concerned about inadequate nausea and pain control. HEENT: NCAT, EOMI, non-icteric sclera. Lungs: Bibasilar crackles in posterior lung alberto, unchanged from previous day. Heart: RRR, no m/r/g. Abd: Soft, ND, mildly TTP in lower quadrants b/l, BS+, no rebound or guarding. Ext: 2cm incision on medial side of RLE that is clean, dry, and intact. No surrounding eryt laura, minimal amount of induration. Distal dorsalis pedis pulses present, faint and 1+ on R, and 2+ on L. Dopplers reveal good pulses in posterior tibialis. FARRUKH drain removed Neuro: grossly intact. Laboratory Interpretation: Results for MACKENZIE HARTLEY ( ) as of 03/19/2012 20:20 Ref. Range 03/19/2012 01:24 03/19/2012 06:39 03/19/2012 06:40 03/19/2012 13:05 03/19/2012 16:47 SODIUM, PLASMA (LAB) Latest Range: 136-145 mmol/L 142 POTASSIUM, PLASMA (LAB) Latest Range: 3.4-5.0 mmol/L 3.4 POTASSIUM CMNT No range found Sl Hemo CHLORIDE, PLASMA (LAB) Latest Range: 97-108 mmol/L 106 TOTAL CO2, PLASMA (LAB) Latest Range: 21-32 mmol/L 25 ANION GAP Latest Range: 4-11 mmol/L 11 BUN, PLASMA (LAB) Latest Range: 6-20 mg/dL 3 (L) CREATININE PLASMA (LAB) Latest Range: 0.60-1.10 mg/dL 0.60 GLUCOSE, PLASMA (LAB) Latest Range: 60-99 mg/dL 95 CALCIUM, PLASMA (LAB) Latest Range: 8.6-10.2 mg/dL 7.9 (L) PH(UR) Latest Range: 5.0-8.0 6.0 BLOOD GLUCOSE, POC Latest Range: 60 - 99 mg/dL 114 (H) 123 (H) WHITE CELL COUNT Latest Range: 4.4-11.0 K/cu mm 24.9 (H) RED CELL COUNT Latest Range: 4.00-5.20 M/cu mm 3.38 (L) HEMOGLOBIN Latest Range: 12.0-16.0 g/dL 9.9 (L) HEMATOCRIT Latest Range: 36.0-46.0 % 30.1 (L) MCV Latest Range: 80.0-96.0 fL 89.1 MCHC Latest Range: 33.4-35.5 g/dL 32.9 (L) RDW Latest Range: 11.5-15.0 % 24.4 (H) PLATELET COUNT Latest Range: 150-400 K/cu mm 575 (H) INR Latest Range: 0.90-1.20 INR 1.59 (H) HEPARIN, STD LMW No range found 0.60 TRICHOMONAS Latest Range: None /hpf None CULT, URINE SCREEN Latest Range: Negative Positive (A) COLOR(UR) Latest Range: (none) Straw APPEARANCE Latest Range: (none) Sl.Cloudy GLUCOSE(UR) Latest Range: Negative, 50.0 mg/dL Negative BILIRUBIN Latest Range: Negative Negative KETONES Latest Range: Negative mg/dL Negative SPECIFIC GRAVITY Latest Range: 1.005-1.030 <1.005 (L) BLOOD Latest Range: Negative Small (A) PROTEIN(LAB) Latest Range: Negative, 30.0 mg/dL Negative UROBILINOGEN Latest Range: <2.0 mg/dL <2.0 NITRITES Latest Range: Negative Negative LEUKOCYTE ESTERASE Latest Range: Negative Large (A) WHITE CELLS Latest Range: 0-5 /hpf 15 (H) RED CELLS Latest Range: 0-3 /hpf 5 (H) NON-SQUAMOUS EPITH Latest Range: None /hpf Few (A) SQUAMOUS EPITHELIAL Latest Range: None /hpf Moderate (A) BACTERIA Latest Range: None /hpf Few (A) MUCOUS Latest Range: None /hpf Few (A) HYALINE CASTS Latest Range: 0-2 /lpf 0 GRANULAR CASTS Latest Range: 0-2 /lpf 0 CELLULAR CASTS Latest Range: <=0 /lpf 0 AMORPHOUS CRYSTALS Latest Range: None /hpf None CALCIUM OXALATE VIJAY Latest Range: None /hpf None URIC ACID CRYSTALS Latest Range: None /hpf None TRIPLE P04 CRYSTALS Latest Range: None /hpf None YEAST (LAB) Latest Range: None /hpf None Imaging Interpretation: CXR (03/19/12): FINDINGS: Right jugular central venous catheter has been removed. There is persistent ana cristina ntration of the right hemidiaphragm. There are new moderate right and small left pleural ef fusions with compressive atelectasis. There is no pulmonary edema or pneumothorax. No foca l consolidation to suggest pneumonia. The cardiac and mediastinal contours are stable. IMPRESSION: New bilateral (right greater than left) pleural effusions with compressive atelectasis. Brief Summary: Mrs. Hartley is a 56 yo F with h/o Crohn's disease and multiple arterial thrombi, recently of f all meds due to loss of insurance coverage, who presents with occlusive arterial thrombus of RLE and celiac arteries, also with non-occlusive thrombus in braches of SMA and likely is chemia of ascending colon; and uncontrolled Crohn's c/b vaginal fistula and amanda-rectal absc ess, now s/p embolectomy of RLE on 03/17/12. Now septic with as of yet unidentified source. Assessment and Plan #Sepsis: Patient meets criteria of sepsis: she has a suspected source of infection, is febr ile to 102.6, is tachycardic, and has a WBC count of 24.9 (though this is in the setting of prednisone). Her CXR shows new small pleural effusions, but no focal consolidation to sugge st PNA. U/A is positive for large LE, negative nitrites, and urine WBCs of 15, however patie nt states she gets chronic UTIs as a complication of her vaginal fistulas. Another potential source of course is her known perirectal abscess. Mrs. Hartley has had problems with maintain ing IV access. She has lost 3 IVs in 2 days. She currently has a 22 gauge PIV. In this setti ng, we have asked the MICU to come and place an EJ for additional IV access. We will broaden her antibiotic coverage to vanc, cefepime (given pt's PCN allergy), and continue Flagyl (co verage of B frag) per ID recs. Will also formally consult ID in the AM. -- MICU to place EJ for additional IV access. -- Broadening coverage to vanc, cefepime, and Flagyl. -- F/U UCx, BCx. -- ID consult. Appreciate their assistance! #Crohn's disease/perirectal abscess: Involvement of both small and large intestine with com plications of vaginal fistula and perirectal abscess. Ideally, we would like to (1) have her abscess surgically drained, (2) have her undergo colonoscopy, (3) undergo resection of ambrose rely affected bowel, and then (4) initiate immunosuppressive therapy for her Crohn's. Arlyn r patient refusing colonoscopy and surgical drainage. She is currently on prednisone but hol ding further immunsuppressants pending treatment of perirectal abscess. Our current plan is to continue treatment with ABX and re-image her to evaluate success of treatment once her in surance coverage returns. If abscess resolves, we will then re-address need for colonoscopy prior to initiation of immunosuppressive therapy. While this is not ideal, by refusing treat ment, patient leaves us with the above as our best option going forward. Right now, however, her abscess is a potential source of her new sepsis. Currently on Flagyl, vanc and cefepime . If she continues to be septic with no other source identified, surgical drainage may be ne cessary to save patient's life. Once her acute problems resolve, we will need to establish c are with landscape artist so that further treatment options can be discussed, but this suzette uld be done as outpt after abscess treatment. #Iron deficiency anemia: Will need IV iron, not emergent, will defer this until Apr 11 as well when insured. #Multiple emboli/thrombophilia: S/P embolectomy of R pop on 03/17/12. FARRUKH drain now removed. Tolerated procedure well with good distal pulses. Transitioned to Lovenox on 03/18/12 after h er IVs infiltrated. -- Will d/c with financial support for Lovenox. -- Encourage ambulation as tolerated. 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 Treating with anticoagulation only for now. No clear benefit to surgical closure over anticoagulation. #Electrolyte dyscrasias: Potassium repleted today with 60mEq PO. This patient was discussed with my attending, Chary Doherty MD, who agrees with the abo ve, including assessment and plan. Moses Anthony MD Neurology Manager Sales And Marketing Pager [phone] Jose Antonio Baker MD - 03/18/2012 1:01 PM PST Inpatient Vascular Surgery Progress Note Hospital Day:6 Author; JOSE ANTONIO TONEY MD Attending Physician: Chary Doherty MD S: right leg painful. No other complaints Physical Exam: Last Vitals: BP 130/70 | Pulse 78 | Temp 37.1 C (98.8 F) | RR 20 | Wt 74.1 kg (163 lb 5 .8 oz) | SpO2 92% O2 Delivery Device: None (room air) (03/18/12 1108) 24 Hour Vital Min/Max: Systolic (24hrs), Av mmHg, Min:116 mmHg, Max:137 mmHgDiastolic (24hrs), Av mmHg, M in:57 mmHg, Max:85 mmHgPulse Av Min: 73 Max: 82 Temp Av.3 C (99.1 F) Min: 37 C (98.6 F) Max: 37.6 C (99.7 F) Resp Av.8 Min: 14 Max: 20 SpO2 Av.8 % Min: 90 % Max: 94 % Intake/Output Summary (Last 24 hours) at 03/18/12 1301 Last data filed at 03/18/12 1119 Gross per 24 hour Intake 1945 ml Output 2112 ml Net -167 ml No Data Recorded LastCBG Intervention: Notified (Comment);Medication given (03/12/12 4496) Physical Exam Gen: Alert, NAD Extremities: moving right foot. Right foot warm. Minimal edema incision intact. FARRUKH with sma ll amount of SS fluid Pulse/signal exam: palpable DP and peroneal pulses Chemistries: Last 72 Hours (or 3 results): Recent Labs Basename 03/18/12 1237 03/18/12 0810 03/18/12 0634 03/17/12 0655 03/16/12 0654 NA -- 143 -- 143 141 K -- 3.3* -- 2.9* 3.6 CL -- 109* -- 109* 107 BICARB -- 24 -- 23 23 BUN -- 2* -- 3* 4* CR -- 0.73 -- 0.66 0.69 GLU 108* 75 102* -- -- CA -- 8.0* -- 8.3* 8.6 MG -- -- -- -- -- PO4 -- -- -- -- -- CBC with diff last 72 hours (or 3 results) Recent Labs Basename 03/18/12 0810 03/17/12 0655 03/16/12 0654 WBC 23.8* 24.9* 24.9* HB 9.7* 9.9* 10.1* HCT 30.9* 31.0* 31.7* PLT 286 535* 506* NEUTROPERC -- -- -- BANDPCT -- -- -- LYMPHPERC -- -- -- MONOPERC -- -- -- BASOPERC -- -- -- EOSPERC -- -- -- Current facility-administered medications:acetaminophen (aka TYLENOL) tablet 325-650 mg, 32 5-650 mg, Oral, Q6H PRN, Dariela Santoyo MD, 650 mg at 03/18/12 0332 ciprofloxacin (aka CIPRO) tablet 500 mg, 500 mg, Oral, BID, Gloria Anthony MD, 500 mg at 11/20 0848 codeine tablet 360 mg, 360 mg, Oral, DAILY, Dariela Santoyo MD, 360 mg at 03/18/12 0848 dextrose IV 25 mL, 25 mL, Intravenous, PRN, DARLING Pantoja-C enoxaparin (aka LOVENOX) injection 80 mg, 80 mg, Subcutaneous, Q12H, Moses Asher MD glucagon (aka GLUCAGEN) injection 1 mg, 1 mg, Intramuscular, PRN, DARLING Pantoja-C glucose chewable tablet 16 g, 16 g, Oral, Q15MIN PRN, Bibiana Adams PA-C heparin 10 unit/mL IV flush syringe 50 Units, 50 Units, Intravenous, PRN, Chary Doherty MD, 50 Units at 03/15/12 0904 heparin bolus from continuous infusion (protocol) 2,800 Units, 2,800 Units, Intravenous, NEEDED (BOLUS), Bibiana Adams PA-C heparin bolus from continuous infusion (protocol) 5,600 Units, 5,600 Units, Intravenous, NEEDED (BOLUS), Bibiana Adams PA-C, 5,600 Units at 03/13/12 0502 heparin in D5W IV infusion 25,000 units/250 mL (100 units/mL), 1-2,000 Units/hr, Intravenou s, CONTINUOUS, Gayatri Christensen PA-C, Last Rate: 18.5 mL/hr at 03/18/12 1119, 1,850 Units/ hr at 03/18/12 1119 insulin lispro (aka HUMALOG) injection 1-16 Units, 1-16 Units, Subcutaneous, Q6H, DARLING Pantoja-C, 2 Units at 03/14/12 1340 menthol-zinc oxide (aka CALAZIME) topical paste, , Topical, BID PRN, Bibiana Adams PA-C metroNIDAZOLE (aka FLAGYL) tablet 500 mg, 500 mg, Oral, TID W/MEALS, Gloria Anthony MD, 500 mg at 03/18/12 1235 morphine injection 2-4 mg, 2-4 mg, Intravenous, Q4H PRN, Gloria Anthony MD, 4 mg at 03/18/12 1135 nystatin (aka MYCOSTATIN) cream, , Topical, BID, Gloria Anthony MD omeprazole (aka PRILOSEC) capsule 40 mg, 40 mg, Oral, BID, Dariela Santoyo MD, 40 mg at 11/20 0848 ondansetron (aka ZOFRAN) injection 4 mg, 4 mg, Intravenous, Q12H PRN, Bibiana Adams PA-C, 4 mg at 03/15/12 0859 oxyCODONE (immediate release) (aka ROXICODONE) liquid 7.5-15 mg, 7.5-15 mg, Oral, Q6H PRN, Dariela Santoyo MD, 15 mg at 03/18/12 0332 predniSONE (aka DELTASONE) tablet 15 mg, 15 mg, Oral, HS, Dariela Santoyo MD, 15 mg at 10/20 promethazine (aka PHENERGAN) injection 50 mg, 50 mg, Intravenous, Q4H PRN, Gloria Anthony MD , 50 mg at 03/18/12 1235 warfarin (aka COUMADIN) tablet 5 mg, 5 mg, Oral, QPM, Gloria Anthony MD Assessment and Plan: 56 y.o. female POD# 1 s/p embolectomy, recovering es expected with better than expected pul se exam result Drain removed at bedside No stiches to remove Ok to ambulate as tolerated, but would keep leg elevated while in bed Cont lifelong anticoagulation ok to resume warfarin No further surgical intervention anticipated at this time Would obtain ABIs with waveforms (vasc lab order tomorrow) to establish new baseline for bl ood flow, although with palpable pulses not as important Ok to discharge from vascular perspective once ambulating JOSE ANTONIO TONEY MD Chary Moore MD - 03/18/2012 12:20 PM PSTMEDICINE ATTENDING PROGRESS NOTE ADMIT DATE: 03/12/2012 7:10 PM TODAY'S DATE: 03/18/2012 (HOSPITAL DAY 6) Attending Physician: Chary Doherty MD I personally interviewed the patient, performed the gunter elements of the physical examinatio n, have developed an updated assessment and plan together with the residents, Drs. Santoyo and Gabrielle. I agree with the plans as documented. Assessment/Plan: 56 yo F with crohn's disease, here with multiple arterial thromboses s/p thrombectomy RLE y esterday, uncontrolled crohn's, perirectal abscess. Has started coumadin with lovenox bridge . For abscess treating with Abx until she can follow up with provider just after Apr 11 (wh en her insurance will start), she has refused definitive drainage, therefore holding off on initiating antiinflammatory. Needs outpt GI, plans to establish care in [place], perhaps Dr. Byrd. Transitioning to PO meds, ready for discharge once ambulatory and ready from a v ascular perspective, as she is refusing other interventions related to her crohn's and absce ss. Patient Active Hospital Problem List: 1) *Crohn's disease of both small and large intestine with complication 2) Perirectal abscess 3) Iron deficiency anemia 4) Leukocytosis 5) Thrombocytosis 6) Popliteal artery thrombosis, right 7) Thrombophilia 8) Occlusive thrombus 9) Hypoalbuminemia 10) Hypophosphatemia 11) TIA (transient ischemic attack) 12) PFO (patent foramen ovale) Chary Doherty MD Chief Resident, Internal Medicine Pager: [phone] [facility] DEPARTMENT: Hosp- [id number] Place of Service: Date of Service: 03/18/2012 CSN: [id number] Modifiers: Resident Involved: Yes Suggested CPT: 01482 Subsequent Visit Exp Prob Foc/Mod Complexity 25 min I have spent 30 minutes with the patient of which more than 50% was spent counseling Moses Jeffrey MD - 03/18/2012 9:18 AM PST General Internal Medicine 3 Progress Note Agree with excellent MS4 note by Joaquin Rivera. Please see below for details of my exam, a ssessment, and plan. 24 Hour Events: -- Called by RN that IVs were infiltrating. Eventually IV tech was able to get one IV in wi th aid of ultrasound guidance. -- Per Vascular, patient can d/c once ambulating. Current Symptoms: -- RLE pain, more prominent in calf than at site of incision, limits her ability to ambulat e. Would like more pain control. Also seeking more control over nausea. -- Denies CP, SOB, abdominal pain. -- Initially expressed interest in having perirectal abscess drained, but changed her mind later and no longer wanted drainage. Physical Examination: Last 24 hour min/max Temp: 37.3 C (99.2 F) Temp Min: 37 C (98.6 F) Max: 37.6 C (99.7 F) Pulse: 84 Pulse Min: 73 Max: 84 Resp: 20 Resp Min: 18 Max: 20 BP: 124/58 mmHg BP Min: 120/63 Max: 135/78 SpO2: 92 % SpO2 Min: 90 % Max: 94 % There is no height on file to calculate BMI. Date 03/18/12 07 - 03/19/12 0659 Shift 2273-2182 7738-3572 9110-2847 24 Hour Total I N T A K E P.O. 620 620 I.V. 20 20 40 Shift Total 640 20 660 O U T P U T Urine 675 100 775 Other 400 400 Shift Total 355 231 9911 Weight (kg) 74.1 74.1 74.1 74.1 General: Awake, alert female in mild distress. Calm and interactive. HEENT: NCAT, EOMI, non-icteric sclera. Lungs: Bibasilar crackles in posterior lung alberto. Heart: RRR, no m/r/g. Abd: Soft, ND, mild TTP in lower quadrants b/l, BS+, no rebound or guarding. Ext: 2cm incision on medial side of RLE that is clean, dry, and intact. No surrounding eryt laura, minimal amount of induration. Distal dorsalis pedis pulses present, faint and 1+ on R, and 2+ on L. Dopplers reveal good pulses in posterior tibialis. FARRUKH drain in place, draining approximately 3-5cc of serosanguinous fluid Neuro: grossly intact. Laboratory Interpretation: Results for MACKENZIE HARTLEY ( ) as of 03/18/2012 21:36 Ref. Range 03/18/2012 08:10 03/18/2012 10:26 03/18/2012 12:37 03/18/2012 14:58 03/18/2012 14:58 SODIUM, PLASMA (LAB) Latest Range: 136-145 mmol/L 143 POTASSIUM, PLASMA (LAB) Latest Range: 3.4-5.0 mmol/L 3.3 (L) POTASSIUM CMNT No range found Sl Hemo CHLORIDE, PLASMA (LAB) Latest Range: 97-108 mmol/L 109 (H) TOTAL CO2, PLASMA (LAB) Latest Range: 21-32 mmol/L 24 ANION GAP Latest Range: 4-11 mmol/L 10 BUN, PLASMA (LAB) Latest Range: 6-20 mg/dL 2 (L) CREATININE PLASMA (LAB) Latest Range: 0.60-1.10 mg/dL 0.73 GLUCOSE, PLASMA (LAB) Latest Range: 60-99 mg/dL 75 CALCIUM, PLASMA (LAB) Latest Range: 8.6-10.2 mg/dL 8.0 (L) LD TOTAL, PLASMA Latest Range: 110-205 U/L 753 (H) LD CMNT No range found Sl Hemo BILIRUBIN TOTAL Latest Range: 0.3-1.2 mg/dL 0.4 BLOOD GLUCOSE, POC Latest Range: 60 - 99 mg/dL 108 (H) WHITE CELL COUNT Latest Range: 4.4-11.0 K/cu mm 23.8 (H) 25.4 (H) RED CELL COUNT Latest Range: 4.00-5.20 M/cu mm 3.60 (L) 3.73 (L) HEMOGLOBIN Latest Range: 12.0-16.0 g/dL 9.7 (L) 10.0 (L) HEMATOCRIT Latest Range: 36.0-46.0 % 30.9 (L) 31.9 (L) MCV Latest Range: 80.0-96.0 fL 85.9 85.5 MCHC Latest Range: 33.4-35.5 g/dL 31.4 (L) 31.5 (L) RDW Latest Range: 11.5-15.0 % 23.6 (H) 24.2 (H) PLATELET COUNT Latest Range: 150-400 K/cu mm 286 576 (H) NEUTROPHIL % Latest Range: 50-70 % 73 (H) 65 BANDS % Latest Range: 0-10 % 1 LYMPHOCYTE % Latest Range: 18-42 % 18 14 (L) MONOCYTE % Latest Range: 2-8 % 8 14 (H) EOS % Latest Range: 1-3 % 1 3 BASO % Latest Range: 0-2 % 0 1 METAMYELOCYTES % Latest Range: <=0 % 2 (H) MYELOCYTES % Latest Range: <=0 % 0 PROMYELOCYTES % Latest Range: <=0 % 0 ATYPICAL CELL % Latest Range: <=0 0 NEUTROPHIL # Latest Range: 1.8-7.7 K/cu mm 18.6 (H) 16.5 (H) BANDS # Latest Range: 0.0-1.1 K/cu mm 0.3 LYMPHOCYTE # Latest Range: 1.0-4.8 K/cu mm 4.6 3.6 MONOCYTE # Latest Range: 0.0-0.8 K/cu mm 1.9 (H) 3.6 (H) EOS # Latest Range: 0.0-0.5 K/cu mm 0.2 0.8 (H) BASO # Latest Range: 0.0-0.2 K/cu mm 0.0 0.3 (H) METAMYELOCYTES # No range found 0.5 MYELOCYTES # No range found 0.0 PROMYELO # No range found 0.0 ATYPICAL CELLS # No range found 0.0 ANISOCYTOSIS Latest Range: (none) 3+ (50-100cells/HPF) MACROCYTOSIS Latest Range: (none) 2+ (25-50cells/HPF) POLYCHROMASIA Latest Range: (none) 1+ (<1-2cells/HPF) TARGET CELLS Latest Range: (none) 1+ (10-25cells/HPF) INR Latest Range: 0.90-1.20 INR 1.26 (H) HEPARIN, STD LMW No range found 0.34 0.24 NRBC No range found 1 Imaging Interpretation: None new Brief Summary: 56 yo F with h/o Crohn's disease and multiple arterial thrombi, recently off all meds due t o loss of insurance coverage, who presents with occlusive arterial thrombus of RLE and umesh c arteries, also with non-occlusive thrombus in braches of SMA and likely ischemia of ascend ing colon, uncontrolled Crohn's with vaginal fistula, amanda-rectal abscess, now s/p embolecto my of RLE. Assessment and Plan #Crohn's disease: With involvement of both small and large intestine with complications of vaginal fistula and perirectal abscess. On prednisone but holding further immunsuppressants pending treatment of perirectal abscess (she agrees only to ABX but not to drainge) and colo noscopy (which she is refusing). Will need to establish care with landscape artist so that further treatment options can be discussed as outpt after abscess treatment. As her insuran ce become available after the new year, will make this appointment for after the new year. #Perirectal abscess: Complication of the above. Currently on cipro/flagyl, refusing drainag e, but some spontaneous drainage is already happening, so will plan to continue ABX and repe at imaging down the road (she will be insured as of Apr 11, so may treat until then). #Iron deficiency anemia: Will need IV iron, not emergent, will defer this until Apr 11 as well when insured. #Multiple emboli/thrombophilia: S/P embolectomy of R pop yesterday. FARRUKH drain in place. Baron rated procedure well with good distal pulses. Transitioned to Lovenox today after her IVs in filtrated. Will d/c financial support for Lovenox. Encourage ambulation as tolerated. 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 Treating with anticoagulation only for now. No clear benefit to surgical closure over anticoagulation. Other notes as discussed in MS4 note. Moses Anthony MD Neurology Manager Sales And Marketing Pager [phone] signed by Moses Asher MD at 03/18/2012 9:50 PM Serenity Hui - 03/18/2012 9:18 AM PST Medicine Progress Note Refer to Attending and Resident Notes for Assessment and Plan Hospital Day # 6 Patient:Mackenzie Hartley, Attending: Chary Doherty MD Author:VIVIANA Steele ID:Mackenzie Hartley is a 56 y.o. female with a history of Chron's, vaginal fistula, and chronic perirectal fistulas who presents from OSH with Chron's flair, multivessel thrombi, and found to have PFO on TTE. Interim Events: IV line infiltrating Vascular rec: able to go home when ambulatory Subjective: Pain from right popliteal surgery, request increasing morphine. Wants to avoid nausea and requests increasing phenergan. No cough, no chest pain or SOB. Lower abdominal pain improv ing. Wolf in. Able to stand with assist, but pain prevents from staying up too long. On questioning this evening, changed her mind and not interested in surgery to evaluate her per irectal abscess. - Current Inpatient Medications Medication Dose Route Frequency acetaminophen (aka TYLENOL) tablet 325-650 mg 325-650 mg Oral Q6H PRN And oxyCODONE (immediate release) (aka ROXICODONE) liquid 7.5-15 mg 7.5-15 mg Oral Q6H PRN ciprofloxacin (aka CIPRO) tablet 500 mg 500 mg Oral BID codeine tablet 360 mg 360 mg Oral DAILY dextrose IV 25 mL 25 mL Intravenous PRN enoxaparin (aka LOVENOX) injection 80 mg 80 mg Subcutaneous Q12H glucagon (aka GLUCAGEN) injection 1 mg 1 mg Intramuscular PRN glucose chewable tablet 16 g 16 g Oral Q15MIN PRN heparin 10 unit/mL IV flush syringe 50 Units 50 Units Intravenous PRN insulin lispro (aka HUMALOG) injection 1-16 Units 1-16 Units Subcutaneous Q6H menthol-zinc oxide (aka CALAZIME) topical paste Topical BID PRN metroNIDAZOLE (aka FLAGYL) tablet 500 mg 500 mg Oral TID W/MEALS morphine injection 2-4 mg 2-4 mg Intravenous Q4H PRN nystatin (aka MYCOSTATIN) cream Topical BID omeprazole (aka PRILOSEC) capsule 40 mg 40 mg Oral BID ondansetron (aka ZOFRAN) injection 4 mg 4 mg Intravenous Q12H PRN predniSONE (aka DELTASONE) tablet 15 mg 15 mg Oral HS promethazine (aka PHENERGAN) injection 50 mg 50 mg Intravenous Q4H PRN warfarin (aka COUMADIN) tablet 5 mg 5 mg Oral QPM EXAM: General: appears appropriate age, laying in bed in sleeping, nontoxic 24 Hour Vital Min/Max: Last Vitals: BP 124/58 | Pulse 84 | Temp 37.3 C (99.2 F) | RR 20 | Wt 74.1 kg (163 lb 5 .8 oz) | SpO2 92%: Temp Av.2 C (99 F) Min: 36.9 C (98.4 F) Max: 37.6 C (99.7 F) Systolic (24hrs), Av mmHg, Min:120 mmHg, Max:135 mmHg Diastolic (24hrs), Av mmHg, Min:58 mmHg, Max:78 mmHg Pulse Av.6 Min: 72 Max: 82 Resp Av.6 Min: 12 Max: 24 SpO2 Av.8 % Min: 89 % Max: 94 % Intake/Output Summary (Last 24 hours) at 03/18/12917 Last data filed at 03/18/12914 Gross per 24 hour Intake 2325 ml Output 3062 ml Net -737 ml There is no height on file to calculate BMI. Physical: HEENT: neck supple, mouth moist clear Lungs: Bibasilar early inspiratory rales Heart: regular rate and rhythm, no murmurs, gallops or rubs Abdomen: non distended, NBS, TTP lower quadrants R>L Extremities: right lower extremity FARURKH draining sanguinous fluid, R nonpalpable dorsalis ped is but warm, doppler this evening with audible dorsalis pedis and tibialis posterior bilater ally, surgical wound: CDI with dark scabbing of skin and trace induration but no erythema, T TP posterior ankle. CBC with diff last 72 hours (or 3 results) Recent Labs Basename 03/18/12 0810 03/17/12 0655 03/16/12 0654 WBC 23.8* 24.9* 24.9* HB 9.7* 9.9* 10.1* HCT 30.9* 31.0* 31.7* PLT 286 535* 506* NEUTROPERC -- -- -- BANDPCT -- -- -- LYMPHPERC -- -- -- MONOPERC -- -- -- BASOPERC -- -- -- EOSPERC -- -- -- Chemistries: Last 72 Hours (or 3 results): Recent Labs Basename 03/18/12 0810 03/18/12 0634 03/17/12 2301 03/17/12 0655 03/16/12 0654 NA 143 -- -- 143 141 K 3.3* -- -- 2.9* 3.6 CL 109* -- -- 109* 107 BICARB 24 -- -- 23 23 BUN 2* -- -- 3* 4* CR 0.73 -- -- 0.66 0.69 GLU 75 102* 111* -- -- CA 8.0* -- -- 8.3* 8.6 MG -- -- -- -- -- PO4 -- -- -- -- -- Liver Tests: Last 72 hours (or 3 results) No results found for this basename: AST:3,ALT:3,TBILI:3,AP:3,ALB:3,TP:3 in the last 72 hour s Lab Results Component Value Date INRPT 1.26* 03/18/2012 Cultures: BLOOD CULTURE [facility] (no units) Date Value 03/12/2012 Final Report:No Bacteria or Yeast isolated at 5 days. 03/12/2012 Final Report:No Bacteria or Yeast isolated at 5 days. CULTURE RESULT (no units) Date Value 03/13/2012 C Urine Source: U Midstream Final CULTURE RESULT: No growth (<1000 col/ml) after 24 hours 03/13/2012 C Stool Source: Stool Final CULTURE RESULT: Salmonella, Shigella, Campylobacter and E.coli O157:H7 not isolated Unable to rule out Shiga toxins 1 and 2 03/12/12 Blood cx, NGTD Problem List 1. Thrombophilia 2. Perirectal Abscess 3. Crohn's Flair 4. Thrombocytosis 5. Atelectasis 6. Anemia Assessment and Plan: Thrombophilia - TTE shows right to left PFO, thrombectomy with vascular surgery of right po pliteal without complications, right foot now warmer that yesterday. -discontinue heparin gtt, bridge with Lovenox start this am after IVs infiltrating and onl y one IV line accessible -restart coumadin, can be bridged with outpatient lovenox INR goal 2-3 -f/u APLA antibodies -doppler pulses Perirectal Abscess - too small for surgical or IR drainage. Likely responsible for sepsis.1 2/2 blood cultures ngtd. Clinically stable. Does not want surgery to re-evaluate. -PO cipro 500mg, flagyl 500mg TID x 3 wks FU GI Crohn's Disease/flare - fistulizing disease with enterovaginal fistula. Previously on infli ximab, stopped due to cost - on prednisone since. Current flare consistent with previous - n /v abdominal pain, watery diarrhea. She's declined colonoscopy. -prednisone 15mg daily, may consider taper -codeine 360mg daily for diarrhea -percocet for abdominal pain -Colonoscopy in 4-6 weeks, will ask Mrs. Hartley about her preference of provider Thrombocytosis - reactive from iron deficiency anemia, sepsis. Platlette drop 50% s/p surge ry, likely from consumption. Less likely from HIT without evidence of active bleeding and c lotting. Work up for DIC, and f/u anti-phospholipid studies. - CBC with diff and smear - LDH - LFTs Atelectasis - progressive bibasilar inspiratory rales in the setting of immobility, no resp iratory symptoms, afebrile - IS - encourage to walk Anemia - iron deficiency likely from Crohn's despite absence of clear hematochezia. Venofer on 03/16. Stable Hct 31. - hct goal >21 - consider additional 200 mg venofer ptd GERD - omeprazole BID Disposition: home when ambulatory; insurance coverage her largest issue F/E/N Code: Do Not Resuscitate/Do Not Intubate This patient was seen with GM3, refer to Attending and Resident notes for assessment and pl an. ---- Nuñez Rivera, MS4 Pager # [phone] Chary Moore MD - 03/17/2012 8:39 PM PSTMEDICINE ATTENDING PROGRESS NOTE ADMIT DATE: 03/12/2012 7:10 PM TODAY'S DATE: 03/17/2012 (HOSPITAL DAY 5) Attending Physician: Chary Doherty MD I personally interviewed the patient, performed the gunter elements of the physical examinatio n, have developed an updated assessment and plan together with the residents, Drs. Santoyo and Gabrielle. I agree with the plans as documented. 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 Will need to establish care with landscape artist so this can be discussed as outpt after abscess treatment 2) Perirectal abscess - on cipro/flagyl, refusing drainage, but some spontaneous drainage i s happening, so will plan to continue abx and repeat imaging down the road (she will be insu red as of Apr 11, so may treat until then). 3) Iron deficiency anemia - will need IV iron, not emergent, will defer this until Apr 11 as well when insured 4) Leukocytosis 5) Thrombocytosis 6) Popliteal artery thrombosis, right - thromboectomy today, drain in place 7) Thrombophilia - on heparin, transitioning to coumadin, will get financial assistance for lovenox on d/c 8) Occlusive thrombus 9) Hypoalbuminemia 10) Hypophosphatemia 11) TIA (transient ischemic attack) - h/o 3 TIAs, one last week, found to have PFO. 12) PFO - likely source of her TIAs and SMA emboli. Treating with anticoag for now. Anticoa gulation = to device closure. Chary Doherty MD Chief Resident, Internal Medicine Pager: [phone] [facility] DEPARTMENT: Hosp- [phone] Place of Service: - Date of Service: 03/17/2012 CSN: [id number] Modifiers:GC Resident Involved: Yes Suggested CPT: 38857 Subsequent Visit Detailed/High complexity 35 min I have spent 35 minutes with the patient of which more than 50% was spent counseling onetaMirela MD - 03/17/2012 10:51 AM PSTINPATIENT BRIEF OPERATIVE NOTE Procedure Date: 03/17/12 Author: MIRELA SALGADO MD Attending Physician: Bessei Assistants: Lenny Prior to the beginning of the procedure, the team paused to verify the patient s identity , the procedure to be performed (in accordance with the consent,) and the correct side/site. The patient was positioned appropriately. All relevant images and results were properly lab eled and displayed. We addressed antibiotic prophylaxis and fluids for irrigation as applica ble to this patient. Any safety precautions were addressed. Preoperative Diagnosis: right popliteal artery tibial peroneal trunk embolus Postoperative Diagnosis: same Procedure Performed: Embolectomy right popliteal and tibial arteries Estimated Blood Loss: 100cc Fluids: 1 liter Specimens: clot Complications: none apparent Drains: 1 FARRUKH Disposition: PACU Findings: Clot in below knee popliteal artery and tibial peroneal trunk. Excellent inflow. Catheter only passes short distance down the anterior tibial artery consistent with CT sca n. Good PT Doppler at end of case; monophasic DP Doppler at end of case. MIRELA SALGADO MD [facility] [id number] [id number] [place] [phone] ham, Gloria Lawson MD - 1 05/18/2011 7:19 AM PST Pt seen and agree with MS4 note with any additions/exceptions as follows. Please see MS no te for details regarding overnight events, medication list and daily labs. Physical exam: Last Vitals: BP 116/57 | Pulse 82 | Temp 37.3 C (99.1 F) | RR 18 | Wt 82.056 kg (180 lb 14.4 oz) | SpO2 92% 24 Hour Vital Min/Max: Systolic (24hrs), Av mmHg, Min:116 mmHg, Max:163 mmHg Diastolic (24hrs), Av mmHg, Min:55 mmHg, Max:85 mmHg Pulse Min: 72 Max: 82 Temp Min: 36.9 C (98.4 F) Max: 37.6 C (99.6 F) Resp Min: 12 Max: 24 SpO2 Min: 89 % Max: 94 % Intake/Output Summary (Last 24 hours) at 03/17/122103 Last data filed at 03/17/122031 Gross per 24 hour Intake 1445 ml Output 4125 ml Net -2680 ml Post surgical exam: General Appearance: NAD, AAO x 3 HEENT: PERRLA, EOMI, sclera anicteric, MM moist Respiratory: fine crackles auscultated over right lung Cardiovascular: RRR, no m/r/g Gastrointestinal: soft, nt, nd, bs + Skin: no rash, no erythema Ext: RLE with surgical incision on medial aspect of right knee, slightly TTP, no erythema, surgical drain in place draining serosanguinous fluid. Right foot warm, much improved from p revious exams. Still no palpable DP pulse on RLE. Neuro: follows commands, ROSAS, cn 2-12 Assessment and Plan: Mackenzie Hartley is a 56 y.o. female with PMH of fistulating Crohn's disease c/b perirectal absc ess and enterovaginal fistula, thrombophilia with concomitant PFO, anemia and thrombocytosis now s/p right tibial and popliteal embolectomy. Mrs. Hartley is again eager to go home as justin n as possible. With the ok from vascular, we will restart Mrs. Hartley's coumadin. She has rec eived funding for lovenox to bridge her until she's therapeutic with her coumadin and [facility] has agreed to provide discounted INR checks for Mrs. Hartley. She will need to be on l ifelong anticoagulation for her thrombophilia. Her thrombophilia is thought to be related to her Crohns, and thus far her workup for APLA is still pending. We have asked cardiology to weigh in on the utility of repairing her PFO. The preliminary data discussed by the team suzette ws that PFO repair in the setting of TIA's does not provide increased benefit over medical m anagement. For her perirectal abscess, Mrs. Hartley has refused all surgical intervention for this absce ss. We will continue to treat her conservatively with flagyl and cipro. We will transition f rom IV antibiotics to PO to prepare for discharge. Initially GI had recommended 14 days of t reatment for the abscess, but because Mrs. Prestons insurance coverage will not begin until t he beginning of the year, we will continue her PO antibiotics for at least 3 weeks until she can get coverage for a repeat CT scan of her abdomen and pelvis. She will be able to follow up with her PCP prior to her follow up with GI after the first of the year. With regards t o the nausea that Mrs. Hartley reports with more than a few days of flagyl, we will plan to tr ansition to PO antiemetics tomorrow. She will need close follow up with GI and we will try to coordinate a GI provider of Mrs. Garrett marino's choosing. After her insurance begins in April, she will be able to have a repeat CT that will hopefully show resolution of her CT and then can be restarted on her remicade. Un til that time, we will continue treating her with prednisone 15 mg daily, but may continue t apering this as it is unclear the current benefit of this treatment regimen. GI would like t o do a colonoscopy in 4-6 weeks. #Thrombophilia s/p right tibial thrombectomy -Heparin gtt to bridge coumadin in house, will bridge with lovenox as outpatient -Coumadin 5 mg tablet to begin tonight, INR goal 2-3 -Cardiology consult re PFO -F/u APLA studies -Doppler pulses per vascular surgery #Perirectal abscess -PO Cipro and flagyl x 3 weeks/until pt can follow up with GI -Repeat CT scan after insurance coverage #Crohns flare -Prednisone 15 mg daily, consider taper -Colonoscopy in 4-6 weeks with GI -Codeine for diarrhea -Pain management with oxycodone and IV morphine -IV antiemetics, plan to transition to PO antiemetics tomorrow in preparation for discharge -Plan to restart Remicade after resolution of abscess #Normocytic anemia, likely in setting of chronic Crohns -S/P 800 mg venofer -Consider additional 200 mg venofer prior to discharge Rest per MS4 note Dispo: likely home pending coordination of care and post operative care per vascular surger y Gloria Anthony MD Neurology PGY1 Pager: [phone] oaquin Rivera - 10/2011 7:19 AM PST Medicine Progress Note Refer to Attending and Resident Notes for Assessment and Plan Hospital Day # 5 Patient:Mackenzie Hartley, Attending: Chary Doherty MD Author:Nuñez B Rivera, MS4 ID:Mackenzie Hartley is a 56 y.o. female with a history of Chron's, vaginal fistula, and chronic perirectal fistulas who presents from OSH with Chron's flair, multivessel thrombi, and found to have PFO on TTE. 24 Hour Events: Held Warfarin and heparin gtt Thrombectomy of right Popliteal A. thrombosis Subjective: Brief encounter prior to surgery. No new changes from yesterday. Continues to have lower abdominal pain, R>L. Nonambulatory. - Current Inpatient Medications Medication Dose Route Frequency acetaminophen (aka TYLENOL) tablet 325-650 mg 325-650 mg Oral Q6H PRN And oxyCODONE (immediate release) (aka ROXICODONE) liquid 7.5-15 mg 7.5-15 mg Oral Q6H PRN ciprofloxacin (aka CIPRO) tablet 500 mg 500 mg Oral BID codeine tablet 360 mg 360 mg Oral DAILY dextrose IV 25 mL 25 mL Intravenous PRN glucagon (aka GLUCAGEN) injection 1 mg 1 mg Intramuscular PRN glucose chewable tablet 16 g 16 g Oral Q15MIN PRN heparin 10 unit/mL IV flush syringe 50 Units 50 Units Intravenous PRN heparin bolus from continuous infusion (protocol) 2,800 Units 2,800 Units Intravenous NEEDED (BOLUS) heparin bolus from continuous infusion (protocol) 5,600 Units 5,600 Units Intravenous NEEDED (BOLUS) heparin in D5W (straight draw from RTU) IV infusion heparin in D5W IV infusion 25,000 units/250 mL (100 units/mL) 1-2,000 Units/hr Intrave nous CONTINUOUS insulin lispro (aka HUMALOG) injection 1-16 Units 1-16 Units Subcutaneous Q6H menthol-zinc oxide (aka CALAZIME) topical paste Topical BID PRN metroNIDAZOLE (aka FLAGYL) tablet 500 mg 500 mg Oral TID W/MEALS morphine injection 2-4 mg 2-4 mg Intravenous Q4H PRN nystatin (aka MYCOSTATIN) cream Topical BID omeprazole (aka PRILOSEC) capsule 40 mg 40 mg Oral BID ondansetron (aka ZOFRAN) injection 4 mg 4 mg Intravenous Q12H PRN predniSONE (aka DELTASONE) tablet 15 mg 15 mg Oral HS promethazine (aka PHENERGAN) injection 50 mg 50 mg Intravenous Q4H PRN EXAM: General: appears appropriate age, laying in bed in sleeping, nontoxic 24 Hour Vital Min/Max: Last Vitals: BP 137/80 | Pulse 77 | Temp 37.3 C (99.1 F) | RR 20 | Wt 82.056 kg (180 lb 14.4 oz) | SpO2 90%: Temp Av.2 C (98.9 F) Min: 37 C (98.6 F) Max: 37.4 C (99.3 F) Systolic (24hrs), Av mmHg, Min:120 mmHg, Max:155 mmHg Diastolic (24hrs), Av mmHg, Min:62 mmHg, Max:84 mmHg Pulse Av.2 Min: 69 Max: 79 Resp Av Min: 20 Max: 20 SpO2 Av.1 % Min: 89 % Max: 91 % Intake/Output Summary (Last 24 hours) at 03/17/12 0720 Last data filed at 03/17/12 0105 Gross per 24 hour Intake 400 ml Output 3650 ml Net -3250 ml There is no height on file to calculate BMI. Physical: HEENT: neck supple, mouth moist clear Lungs: RLL early inspiratory rales Heart: regular rate and rhythm, no murmurs, gallops or rubs Abdomen: non distended, NBS, TTP lower quadrants R>L Extremities: right lower extremity FARRUKH draining sanguinous fluid, nonpalpable dorsalis pedis bilaterally, cool R>L , surgical wound CDI, TTP posterior ankle but no erythema or indurati on CBC with diff last 72 hours (or 3 results) Recent Labs Basename 03/17/12 0655 03/16/12 0654 03/15/12 0403 WBC 24.9* 24.9* 23.7* HB 9.9* 10.1* 9.3* HCT 31.0* 31.7* 29.3* PLT 535* 506* 537* NEUTROPERC -- -- -- BANDPCT -- -- -- LYMPHPERC -- -- -- MONOPERC -- -- -- BASOPERC -- -- -- EOSPERC -- -- -- Lab Results Component Value Date INRPT 1.07 03/16/2012 Cultures: BLOOD CULTURE [facility] (no units) Date Value 03/12/2012 No growth to date. 03/12/2012 No growth to date. CULTURE RESULT (no units) Date Value 03/13/2012 C Urine Source: U Midstream Final CULTURE RESULT: No growth (<1000 col/ml) after 24 hours 03/13/2012 C Stool Source: Stool Final CULTURE RESULT: Salmonella, Shigella, Campylobacter and E.coli O157:H7 not isolated Unable to rule out Shiga toxins [address] Anthony's Note: RH negative Pending: Lupus inhibitor Anti B2 glycoprotein 1 Anticardiolipin TTE: Right to left PFO and EF 60-65% Abnormal bilateral lower extremity arterial duplex scan consistent with right distal popliteal artery thrombosis. The left lower extremity also has thrombosis of the peroneal artery. 03/12/12 Blood cx, NGTD Assessment and Plan: Thrombophilia - TTE shows right to left PFO, so now there is a suspicion for venous clot bu rden with the patient's history of TIA's and no significant clot burden in her bilateral car otid duplex. We have consulted cardiology about the utility of repairing her PFO with known embolic events. The Closure Trial: Closure of PFO vs Medical management, no greater benefit after 2 years. She has received funding from the hospital to be bridged with lovenox until she's therapeutic on coumadin. Thrombectomy with vascular surgery of right popliteal withou t complications, right foot now warmer that yesterday. -heparin gtt, following heparin levels, -restart coumadin, can be bridged with outpatient lovenox -f/u APLA antibodies Perirectal Abscess - too small for surgical or IR drainage. Likely responsible for sepsis.1 2/2 blood cultures ngtd. Clinically stable. -cipro 500mg, flagyl 500mg TID x 14 days, will transition to IV cipro and flagyl for now i n preparation for surgery, but will try to keep her on IV flagyl to try to minimize nausea Crohn's Disease/flare - fistulizing disease with enterovaginal fistula. Previously on infli ximab, stopped due to cost - on prednisone since. Current flare consistent with previous - n /v abdominal pain, watery diarrhea. She's declined colonoscopy. -prednisone 15mg daily, may consider taper -codeine 360mg daily for diarrhea -percocet for abdominal pain -Colonoscopy in 4-6 weeks, will ask Mrs. Hartley about her preference of provider Anemia - iron deficiency likely from Crohn's despite absence of clear hematochezia. Venofe r on 03/16. Stable Hct 31. -hct goal >21 Thrombocytosis - reactive from iron deficiency anemia, sepsis. GERD - omeprazole BID Disposition: home pending above eval; insurance coverage her largest issue F/E/N Code: Do Not Resuscitate/Do Not Intubate This patient was seen with GM3, refer to Attending and Resident notes for assessment and pl an. ---- Joaquin Rivera, MS4 Pager # [phone] Chary Moore MD - 03/16/2012 12:56 PM PSTMEDICINE ATTENDING PROGRESS NOTE ADMIT DATE: 03/12/2012 7:10 PM TODAY'S DATE: 03/16/2012 (HOSPITAL DAY 4) Attending Physician: Chary Doherty MD I personally interviewed the patient, performed the gutner elements of the physical examinatio n, have developed an updated assessment and plan together with the residents, Drs. Santoyo and Gabrielle. I agree with the plans as documented. 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 Patient Active Hospital Problem List: 1) *Crohn's disease of both small and large intestine with complication - on prednisone bu t holding further immunsuppressants pending treatment of perirectal abscess and colonoscopy (which she is refusing). 2) Perirectal abscess - on cipro/flagyl, refusing drainage, but some spontaneous drainage is happening, so will plan to continue abx and repeat imaging down the road 3) Iron deficiency anemia - will need IV iron 4) Leukocytosis 5) Thrombocytosis 6) Popliteal artery thrombosis, right - thromboectomy tomorrow by vascular surgery, NPO af ter midnight 7) Thrombophilia - on lovenox gtt 8) Occlusive thrombus 9) Hypoalbuminemia 10) Hypophosphatemia 11) TIA (transient ischemic attack) - h/o 3 TIAs, one last week, found today to have PFO. 12) PFO - in conjunction with her thrombophilia, likely the reason for her multiple TIAs, may also be the source of her SMA emboli. She is already likely committed to lifelong antico agulation. Per CLOSURE I trial this Spring, closure of PFO did not offer greater benefit neela n medical therapy over a 2-year follow-up. Would therefore not henriquez to close her PFO especia lly considering her current lack of insurance, but agree this is reasonable to consider down the road. Chary Doherty MD Chief Resident, Internal Medicine Pager: [phone] [facility] DEPARTMENT: Hosp- [phone] Place of Service: - Date of Service: 03/16/2012 CSN: [id number] Modifiers: Resident Involved: Yes Suggested CPT: 83817 Subsequent Visit Exp Prob Foc/Mod Complexity 25 min and 03495 Subseque nt Visit Detailed/High complexity 35 min I have spent 30 minutes with the patient of which more than 50% was spent counseling Sandoval Cuenca MD - 03/16/2012 8:33 AM PSTVascular Surgery PN: S: Patient reports leg fatigue with ambulation but unable to endorse which leg, as this was "a couple days ago". Leg pain resolved at this point. O: BP 155/84 | Pulse 69 | Temp 37 C (98.6 F) | RR 20 | Wt 74.7 kg (164 lb 10.9 oz) | Sp O2 91% NAD, a/o x 3 RLE warm, SILT, motor intact. A/P: 56y F with multiple medical comorbidities, chronic aortic thrombus at bifurcation with likely subacute embolus to RLE at trifurcation. ABIs are lower on right than left - Continue heparin gtt - Tentative OR tomorrow for embolectomy - NPO p MN Sandoval Galvez MD, R-4 TPhGloria conde MD - 03/16/2012 7:43 AM PST INPATIENT PROGRESS NOTE Hospital Day:4 Author; GLORIA ANTHONY MD Attending Physician: Chary Doherty MD Interval Hx: -Hematology signed off, Gi signed off -Vascular recommending right popliteal embolectomy, tentatively scheduled for Tuesday. Patie nt wanted to think about it further -Transitioned to cipro/flagyl -Started on venofer -TTE shows PFO -Heme recommends repleting B12 -This morning, Mrs. Hartley is only interested in finding out about her possible surgery. Is feeling a bit overwhelmed with all of the different health care providers coming in and out. -Mrs. Hartley also reporting that she becomes very nauseous after about 3 days of flagyl, req uesting an increase in her frequency of her phenergan Medications: Current Inpatient Medications Medication Dose Route Frequency acetaminophen (aka TYLENOL) tablet 325-650 mg 325-650 mg Oral Q6H PRN And oxyCODONE (immediate release) (aka ROXICODONE) liquid 7.5-15 mg 7.5-15 mg Oral Q6H PRN ciprofloxacin (aka CIPRO) tablet 500 mg 500 mg Oral BID codeine tablet 360 mg 360 mg Oral DAILY dextrose IV 25 mL 25 mL Intravenous PRN glucagon (aka GLUCAGEN) injection 1 mg 1 mg Intramuscular PRN glucose chewable tablet 16 g 16 g Oral Q15MIN PRN heparin 10 unit/mL IV flush syringe 50 Units 50 Units Intravenous PRN heparin bolus from continuous infusion (protocol) 2,800 Units 2,800 Units Intravenous NEEDED (BOLUS) heparin bolus from continuous infusion (protocol) 5,600 Units 5,600 Units Intravenous NEEDED (BOLUS) heparin in D5W IV infusion 25,000 units/250 mL (100 units/mL) 1-2,000 Units/hr Intrave nous CONTINUOUS insulin lispro (aka HUMALOG) injection 1-16 Units 1-16 Units Subcutaneous Q6H menthol-zinc oxide (aka CALAZIME) topical paste Topical BID PRN metroNIDAZOLE (aka FLAGYL) tablet 500 mg 500 mg Oral TID nystatin (aka MYCOSTATIN) cream Topical BID omeprazole (aka PRILOSEC) capsule 40 mg 40 mg Oral BID ondansetron (aka ZOFRAN) injection 4 mg 4 mg Intravenous Q12H PRN predniSONE (aka DELTASONE) tablet 15 mg 15 mg Oral HS promethazine (aka PHENERGAN) injection 50 mg 50 mg Intravenous Q6H PRN warfarin (aka COUMADIN) tablet 6 mg 6 mg Oral QPM Physical Exam: Last Vitals: BP 155/84 | Pulse 69 | Temp 37 C (98.6 F) | RR 20 | Wt 74.7 kg (164 lb 10. 9 oz) | SpO2 91% O2 Delivery Device: None (room air) (03/16/12 0732) 24 Hour Vital Min/Max: Systolic (24hrs), Av mmHg, Min:117 mmHg, Max:155 mmHgDiastolic (24hrs), Av mmHg, M in:69 mmHg, Max:86 mmHgPulse Min: 69 Max: 79 Temp Min: 36.6 C (97.9 F) Max: 37.6 C (99.7 F) Resp Min: 16 Max: 20 SpO2 Min: 88 % Max: 96 % Intake/Output Summary (Last 24 hours) at 03/16/12 0744 Last data filed at 03/16/12 0400 Gross per 24 hour Intake 2285 ml Output 2350 ml Net -65 ml General Appearance: Alert, Ox 4, NAD, a bit overwhelmed HEENT: MMM, EOMI, no conjunctival erythema or petechia, no lesions or pharyngeal exudate Respiratory: Right mid lung crackles, otherwise clear lungs Cardiovascular: RRR, S1and S2 within normal limits, no murmurs or rubs Gastrointestinal: Abdomen soft, non-tender. BS normal. No masses or organomegaly Extremities: No LE edema, RLE slightly cooler than LLE. No palpable pulses in RLE Labs: CBC with diff last 72 hours (or 3 results) Recent Labs Basename 03/16/12 0654 03/15/12 0403 03/14/12 2105 WBC 24.9* 23.7* 22.6* HB 10.1* 9.3* 9.1* HCT 31.7* 29.3* 28.4* PLT 506* 537* 527* NEUTROPERC -- -- -- BANDPCT -- -- -- LYMPHPERC -- -- -- MONOPERC -- -- -- BASOPERC -- -- -- EOSPERC -- -- -- Chemistries: Last 72 Hours (or 3 results): Recent Labs Basename 03/16/12 1356 03/16/12 0734 03/16/12 0654 03/15/12 0403 03/14/12 0525 NA -- -- 141 139 139 K -- -- 3.6 3.8 3.8 CL -- -- 107 106 106 BICARB -- -- 23 23 23 BUN -- -- 4* 7 8 CR -- -- 0.69 0.69 0.73 GLU 117* 115* 93 -- -- CA -- -- 8.6 8.3* 8.1* MG -- -- -- -- -- PO4 -- -- -- 2.1* -- Lab Results Component Value Date INRPT 1.07 03/16/2012 Pending: Lupus inhibitor Anti B2 glycoprotein 1 Anticardiolipin TTE: Right to left PFO and EF 60-65% Abnormal bilateral lower extremity arterial duplex scan consistent with right distal popliteal artery thrombosis. The left lower extremity also has thrombosis of the peroneal artery. 03/12/12 Blood cx, NGTD Assessment and Plan: Thrombophilia - TTE shows right to left PFO, so now there is a suspicion for venous clot bu rden with the patient's history of TIA's and no significant clot burden in her bilateral car otid duplex. We have consulted cardiology about the utility of repairing her PFO with known embolic events. We will also do venous duplex studies of her bilateral lower extremities to assess her venous clot burden. She has received funding from the hospital to be bridged with lovenox until she's therapeutic on coumadin. She has decided to undergo thrombectomy with v ascular surgery tomorrow. -heparin gtt, following heparin levels, will be stopped prior to surgery -Will restart coumadin after surgery, can be bridged with outpatient lovenox -f/u APLA antibodies -Cardiology consulted regarding utilization of PFO repair Perirectal Abscess - too small for surgical or IR drainage. Likely responsible for sepsis.C linically stable. -cipro 500mg, flagyl 500mg TID x 14 days, will transition to IV cipro and flagyl for now in preparation for surgery, but will try to keep her on IV flagyl to try to minimize nausea -f/u / blood cultures Crohn's Disease/flare - fistulizing disease with enterovaginal fistula. Previously on infli ximab, stopped due to cost - on prednisone since. Current flare consistent with previous - n /v abdominal pain, watery diarrhea. She's declined colonoscopy. -prednisone 15mg daily, may consider taper -codeine 360mg daily for diarrhea -percocet for abdominal pain -Colonoscopy in 4-6 weeks, will ask Mrs. Hartley about her preference of provider Anemia - iron deficiency likely from Crohn's despite absence of clear hematochezia. -venofer 400mg IV today -hct goal >21 Thrombocytosis - reactive from iron deficiency anemia, sepsis. GERD - omeprazole BID Disposition: home pending above eval; insurance coverage her largest issue Prophylaxis: heparin Code Status: DNR/DNI Gloria Anthony MD Neurology PGY-1 Pager [phone] The patient was seen and discussed with the attending of record, Chary Doherty MD, who agrees with my assessment and plan. itzying, Chary Ferrer MD - 03/15/2012 9:30 PM PSTMEDICINE ATTENDING PROGRESS NOTE ADMIT DATE: 03/12/2012 7:10 PM TODAY'S DATE: 03/15/2012 (HOSPITAL DAY 3) Attending Physician: Chary Doherty MD I personally interviewed the patient, performed the gunter elements of the physical examinatio n, have developed an updated assessment and plan together with the residents, Drs. Santoyo and Gabrielle. I agree with the plans as documented. Assessment/Plan: 56 yo F with h/o Crohn's disease and arterial thrombus, recently off all meds due to loss o f insurance coverage, who presents with arterial thromboses, amanda-rectal abscess, crohn's fl are Patient Active Hospital Problem List: 1) *Crohn's disease of both small and large intestine with complication - On prednisone, h olding immunosuppressants given draining perirectal abscess. Mackenzie is not currently interest ed in proceeding with colonoscopy or further definitive therapy for perirectal abscess. 2) Perirectal abscess - spontaneously draining, unchanged on today's CT. Has refused EGS o r IR intervention for drainage. Narrowing abx to cipro/flagyl from zosyn, will continue for 2 weeks. 3) Iron deficiency anemia - Will need IV iron, has been on hold for active infection 4) Leukocytosis 5) Thrombocytosis 6) Popliteal artery thrombosis, right - Vascular to re-evaluate arterial thrombus with rep eat CT. Transitioning to warfarin 7) Thrombophilia 8) Occlusive thrombus 9) Hypoalbuminemia 10) Hypophosphatemia 11) TIA (transient ischemic attack) Chary Doherty MD Chief Resident, Internal Medicine Pager: [phone] [facility] DEPARTMENT: Hosp- [phone] Place of Service: Date of Service: 03/15/2012 CSN: [id number] Modifiers:GC Resident Involved: Yes Suggested CPT: 48157 Subsequent Visit Detailed/High complexity 35 min Dariela Duenas Md - 03/15/2012 9:15 PM PSTINPATIENT PROGRESS NOTE Hospital Day:3 Author; DARIELA SANTOYO MD Attending Physician: Chary Doherty MD Interval Hx: hct improved from 22-28 after 2 units prbcs Subjective: Foot, amanda-rectal discomfort improving; ok to go back to home percocet Physical Exam: Last Vitals: BP 122/71 | Pulse 79 | Temp 36.7 C (98.1 F) | RR 20 | Wt 74.7 kg (164 lb 1 0.9 oz) | SpO2 96% O2 Delivery Device: None (room air) (03/15/122004) Well-appearing Heart regular Lungs clear Abd soft, bowel sounds present R foot slightly cool, no mottling. Pulses absent No edema Pertinent Labs/Studies: wbc 23.7 hct 29 plt 537 Assessment and Plan: 56 y/o woman with fistulizing Crohn's with perirectal abscess in setting of treatment holid ay and multiple arterial thrombi. Thrombophilia - Now with clot in R popliteal, infra-renal aorta and ileocolic artery, whic h is suggestive of embolic phenomena. There is also radiographic concern for ischemic coliti s although clinically she's had no hematochezia. Evaluating for APLA since thrombophilia of IBD often venous. Hx TIAs and embolic phenomena also raise consideration of both paradoxical clots and L cardiac source. -heparin gtt, following heparin levels -start coumadin 6mg tonight; -f/u APLA antibodies -f/u TTE bubble study Perirectal Abscess - too small for surgical or IR drainage. Likely responsible for sepsis. Had been on zosyn. Clinically stable. -cipro 500mg, flagyl 500mg TID x 14 days -f/u / blood cultures Crohn's Disease/flare - fistulizing disease with enterovaginal fistula. Previously on infli ximab, stopped due to cost - on prednisone since. Current flare consistent with previous - n /v abdominal pain, watery diarrhea. She's declined colonoscopy. -prednisone 15mg daily; may taper given unclear disease modification benefit and increased risk of infection. -codeine 360mg daily for diarrhea -percocet for abdominal pain Anemia - iron deficiency likely from Crohn's despite absence of clear hematochezia. -venofer 400mg IV today; goal total infusion 1g -hct goal >21 Thrombocytosis - reactive from iron deficiency anemia, sepsis. GERD - omeprazole BID Disposition: home pending above eval; insurance coverage her largest issue Prophylaxis: heparin Code Status: DNR/DNI The patient was seen and examined with me by Chary Doherty MD who agrees with the asses sment and plan. Dariela Santoyo MD Internal Medicine PGY-3 [id number] Daryl Singleton MD - 08/2011 7:18 PM PSTHematology Attending Consult Note: I saw and examined Ms. Hartley with the Hematology Fellow, Dr. Anthony Camejo and [facility] the [facility] Medicine unit. I participated in the gunter components of today's [facility] p[facility] visit including review of the history, an independent physical examination, review of the laboratory data and formulation of the medical management plan. I agree with Dr. Ana enciso's written assessment and recommendations. She continues on unfractionated heparin with therapeutic levels. Her Hgb increased appropri ately with transfusions and has been stable.. Her leukocytosis and thrombocytosis is stable to improved. Attending Physician s Total Time is 35 minutes, >50% spent counseling, coordination of ca re Daryl Arteaga MD, PhD Hematology Oncology [facility] DEPARTMENT: [id number] Place of Service: - Inpatient Date of Service: 03/15/2012 Modifiers: GC - Resident Involved Suggested CPT: 44538 - Subsequent, Detailed/High complex 35 min nthony Camejo MD - 03/15/2012 7:18 PM PST Hematology Fellow Progress Note S: No acute events. Pt tolerating PO well. No blood in stools, no bleeding. Received 2 unit s pRBCs. No cp/sob, no n/v, no f/c/s. Inpatient Medications: acetaminophen (aka TYLENOL) tablet 325-650 mg, 325-650 mg, Oral, Q6H PRN ciprofloxacin (aka CIPRO) tablet 500 mg, 500 mg, Oral, BID codeine tablet 360 mg, 360 mg, Oral, DAILY dextrose IV 25 mL, 25 mL, Intravenous, PRN glucagon (aka GLUCAGEN) injection 1 mg, 1 mg, Intramuscular, PRN glucose chewable tablet 16 g, 16 g, Oral, Q15MIN PRN heparin 10 unit/mL IV flush syringe 50 Units, 50 Units, Intravenous, PRN heparin bolus from continuous infusion (protocol) 2,800 Units, 2,800 Units, Intravenous, NEEDED (BOLUS) heparin bolus from continuous infusion (protocol) 5,600 Units, 5,600 Units, Intravenous, NEEDED (BOLUS) heparin in D5W IV infusion 25,000 units/250 mL (100 units/mL), 1-2,000 Units/hr, Intravenou s, CONTINUOUS insulin lispro (aka HUMALOG) injection 1-16 Units, 1-16 Units, Subcutaneous, Q6H iron sucrose (aka VENOFER) 400 mg in NaCl 0.9 % IV, 400 mg, Intravenous, ONCE menthol-zinc oxide (aka CALAZIME) topical paste, , Topical, BID PRN metroNIDAZOLE (aka FLAGYL) tablet 500 mg, 500 mg, Oral, TID nystatin (aka MYCOSTATIN) cream, , Topical, BID omeprazole (aka PRILOSEC) capsule 40 mg, 40 mg, Oral, BID ondansetron (aka ZOFRAN) injection 4 mg, 4 mg, Intravenous, Q12H PRN oxyCODONE (immediate release) (aka ROXICODONE) liquid 7.5-15 mg, 7.5-15 mg, Oral, Q6H PRN predniSONE (aka DELTASONE) tablet 20 mg, 20 mg, Oral, HS promethazine (aka PHENERGAN) injection 50 mg, 50 mg, Intravenous, Q6H PRN warfarin (aka COUMADIN) tablet 6 mg, 6 mg, Oral, QPM O: Physical Exam: Last Vitals: BP 130/70 | Pulse 70 | Temp 36.7 C (98.1 F) | RR 18 | Wt 73.437 kg (161 lb 14.4 oz) | SpO2 93% 24 Hour Vital Min/Max: Systolic (24hrs), Av mmHg, Min:122 mmHg, Max:136 mmHgDiastolic (24hrs), Av mmHg, M in:68 mmHg, Max:77 mmHg Pulse Av.6 Min: 70 Max: 102 Temp Av.3 C (99.1 F) Min: 36.7 C (98.1 F) Max: 37.7 C (99.8 F) Resp Av.3 Min: 16 Max: 18 SpO2 Av.1 % Min: 91 % Max: 95 % Intake/Output Summary (Last 24 hours) at 03/15/12 1918 Last data filed at 03/15/12 1644 Gross per 24 hour Intake 1045 ml Output 2175 ml Net -1130 ml GEN:Awake, alert, NAD HEENT:MMM, OP Clear Lungs:RLL crackles Heart:RRR, no m/r/g Abd:+BS, NT/ND Ext: No LE Edema, LE warm, 1+ LLE DP, absent LLE DP Labs: CBC with diff last 72 hours (or 3 results) Recent Labs Basename 03/15/12 0403 03/14/12 2105 03/14/12 1150 WBC 23.7* 22.6* 22.7* HB 9.3* 9.1* 6.9* HCT 29.3* 28.4* 22.5* PLT 537* 527* 593* NEUTROPERC -- -- -- BANDPCT -- -- -- LYMPHPERC -- -- -- MONOPERC -- -- -- BASOPERC -- -- -- EOSPERC -- -- -- Chemistries: Last 72 Hours (or 3 results): Recent Labs Basename 03/15/12 1242 03/15/12 0705 03/15/12 0403 03/14/12 0525 03/13/12 0342 NA -- -- 139 139 143 K -- -- 3.8 3.8 3.3* CL -- -- 106 106 109* BICARB -- -- 23 23 19* BUN -- -- 7 8 14 CR -- -- 0.69 0.73 0.66 GLU 111* 122* 111* -- -- CA -- -- 8.3* 8.1* 8.0* MG -- -- -- -- 2.8* PO4 -- -- 2.1* -- 1.1* Lab Results Component Value Date TBILI 0.4 03/12/2012 AP 93 03/12/2012 TP 6.0* 03/12/2012 ALB 1.9* 03/12/2012 AST 14* 03/12/2012 ALT 8* 03/12/2012 A/P: The patient is a 56 yo WF with PMH Chron's disease, arterial thrombosis on coumadin, w ho was admitted for possible extension of thrombus off coumadin, possible chron's flare, per i-rectal abscess. 1. Thrombophilia -pt with significant PVD, thrombophilia -dopplers with bilateral arterial thrombus, R>L -also with h/o multiple intra-abdominal thrombi -continue heparin drip, goal Xa 0.3-0.7 -recommend transition to coumadin, goal INR 2.5-3; start at 6 mg coumadin daily as pt repot s this was the dose she was therapeutic on previously -will need anticoagulation clinic f/u closely; our clinic at [facility] cannot provide any suppli es -anticoagulation with coumadin is necessary lifelong -stop aspirin 2. Iron Deficiency Anemia -iron studies c/w iron deficiency, likely from malabsorption from Chron's, which is impedin g reticulocytosis and exacerbating the anemia -may administer venofer 200 mg IV x5 doses; can be consecutive, but must be given within 14 days -ok to give now as infectious process is stable, no fevers 3. Leukocytosis -stable; likely 2/2 infectious process as well as underlying chron's -continue to monitor 4. Thrombocytosis -reports of platelets up to 1 million; currently stable -slight elevation likely reactive in the setting of chron's, chronic iron deficiency anemia 5. Anemia -H/H stable after transfusion -may be related to chronic bleeding/inflammation from chron's, in setting of fluid resuscit ation -continue to monitor -should improve with iron supplementation -would also replete B12 SC given poor absorption of PO; 1000 mcg SC qdaily x1 week, then qw eekly x4 doses, then monthly -Will sign off; please call with questions Pt seen and discussed with Dr. Arteaga who agrees with the A&P as above. MD Hematology/Oncology Fellow Pager # [phone] signed by Daryl Arteaga MD at 03/15/2012 11:23 PM PSTMorgan Khan - 03/15/2012 4:31 PM PSTTransthoracic echocardiogram completed. Final report to millicent ruiz igg Robles M D - 03/15/2012 2:34 PM PST Gastroenterology Follow-Up Note 03/15/2012 CC/ID: Abdominal pain, N/V/D, elevated WBC and lactate with hypotension IMPRESSION/PLAN: Mackenzie Hartley is a 56 year old female with Crohn's, depression, HTN, and previous splenic thr ombosis and intra-abdominal thromboses who was transferred from outside hospital for concern for mesenteric ischemia with markedly elevated WBC count, prior abdominal pain, and mildly elevated lactate. 1. Sepsis with likely perirectal abscess with ulceration Comment: Preferred option for treatment of this abscess would be antibiotic therapy in marlena tion to proper source control with either drain placement of I&D however patient continues t o refuse. Would not recommend any additional biologic treatments for Crohn's other than pre dnisone at this time given abscess. - Recommend transition to Cipro + Flagyl for course of at least 14 days to treat abscess m edically - Continue prednisone 15 mg PO daily, consider taper - At this point, would not recommend any additional immunosuppressive or immunomodulatory treatment given likely abscess 2. Crohn's disease Comment: Patient will need biologic therapy once infection and abscess is properly treated. Due to extent of fistulizing disease, biologic agents will not be curative and surgery may be indicated. Patient has expressed adamantly she is not interested is any further surgica l options even if her disease were well controlled on medical therapy. Would need to have d isease extent evaluated in 4-6 weeks after appropriate treatment of abscess. Patient again r efused colonoscopy. - Prednisone 15 mg daily more for chronic steroid dependence, taper to physiologic dose wo uld be beneficial - Colonoscopy in 4-6 weeks to assess disease extent and determine possible areas amenable for resection - Patient is at risk for propagation of clots with active disease Recommendations communicated with 3 house staff. We will sign off at this point. This plan was discussed and formulated with gastroenterology attending, Dr. Casiano. Sachin raines call with any questions. Bigg Robles, R1 Pager: [phone] INTERVAL HISTORY: - NAEO - VSS, AF - Patient continues to refuse any surgical interventions or definitive source control of ab scess as well as colonoscopy - Notes slightly increased abdominal pain - Tolerating more PO - Diarrhea improving INPATIENT MEDICATIONS acetaminophen (aka TYLENOL) tablet 325-650 mg, 325-650 mg, Oral, Q6H PRN codeine tablet 360 mg, 360 mg, Oral, DAILY dextrose IV 25 mL, 25 mL, Intravenous, PRN glucagon (aka GLUCAGEN) injection 1 mg, 1 mg, Intramuscular, PRN glucose chewable tablet 16 g, 16 g, Oral, Q15MIN PRN heparin 10 unit/mL IV flush syringe 50 Units, 50 Units, Intravenous, PRN heparin bolus from continuous infusion (protocol) 2,800 Units, 2,800 Units, Intravenous, NEEDED (BOLUS) heparin bolus from continuous infusion (protocol) 5,600 Units, 5,600 Units, Intravenous, NEEDED (BOLUS) heparin in D5W IV infusion 25,000 units/250 mL (100 units/mL), 1-2,000 Units/hr, Intravenou s, CONTINUOUS insulin lispro (aka HUMALOG) injection 1-16 Units, 1-16 Units, Subcutaneous, Q6H menthol-zinc oxide (aka CALAZIME) topical paste, , Topical, BID PRN nystatin (aka MYCOSTATIN) cream, , Topical, BID omeprazole (aka PRILOSEC) capsule 40 mg, 40 mg, Oral, BID ondansetron (aka ZOFRAN) injection 4 mg, 4 mg, Intravenous, Q12H PRN oxyCODONE (immediate release) (aka ROXICODONE) liquid 7.5-15 mg, 7.5-15 mg, Oral, Q6H PRN piperacillin-tazobactam (aka ZOSYN) IV 3.375 g, 3.375 g, Intravenous, Q6H predniSONE (aka DELTASONE) tablet 20 mg, 20 mg, Oral, HS promethazine (aka PHENERGAN) injection 50 mg, 50 mg, Intravenous, Q6H PRN warfarin (aka COUMADIN) tablet 6 mg, 6 mg, Oral, QPM EXAM BP 122/75 | Pulse 76 | Temp 37 C (98.6 F) | RR 16 | Wt 73.437 kg (161 lb 14.4 oz) | SpO 2 93% Systolic (24hrs), Av mmHg, Min:102 mmHg, Max:136 mmHg Diastolic (24hrs), Av mmHg, Min:36 mmHg, Max:77 mmHg Pulse Av.9 Min: 73 Max: 102 Temp Av.2 C (99 F) Min: 36.9 C (98.4 F) Max: 37.7 C (99.8 F) Resp Av Min: 16 Max: 16 SpO2 Av.3 % Min: 91 % Max: 95 % GEN: NAD, appears well CV: RRR PULM: CTAB ABD: soft, ND, mild TTP in RLQ, BS+ LABS CBC with diff last 72 hours (or 3 results) Recent Labs Basename 03/15/12 0403 03/14/12 2105 03/14/12 1150 03/12/121917 WBC 23.7* 22.6* 22.7* -- HB 9.3* 9.1* 6.9* -- HCT 29.3* 28.4* 22.5* -- PLT 537* 527* 593* -- NEUTROPERC -- -- -- 97* BANDPCT -- -- -- 0 LYMPHPERC -- -- -- 0* MONOPERC -- -- -- 3 BASOPERC -- -- -- 0 EOSPERC -- -- -- 0* Chemistries: Last 72 Hours (or 3 results): Recent Labs Basename 03/15/12 0403 03/14/12 0525 03/13/12 0342 03/12/121917 NA 139 139 143 -- K 3.8 3.8 3.3* -- CL 106 106 109* -- BICARB 23 23 19* -- BUN 7 8 14 -- CR 0.69 0.73 0.66 -- CA 8.3* 8.1* 8.0* -- MG -- -- 2.8* 1.1* PO4 2.1* -- 1.1* 1.7* [facility] HospitalMirela maradiaga MD - 03/15/2012 2:12 PM PSTVascular Surgery S: foot feels better, warmer. No pain. O: BP 122/75 | Pulse 76 | Temp 37 C (98.6 F) | RR 16 | Wt 73.437 kg (161 lb 14.4 oz) | SpO2 93% NAD, a/o x 3 Feet warm, R foot SILT A/P: 56y F with Crohn's, aortic thrombus, thrombosis vs embolus of R TP trunk - appears to be improving with adequate anticoagulation - CTA w runoff today to eval aortic thrombus - repeat duplexes, given symptoms improving Sandoval Galvez MD, R-4 Addendum: CT w runoff with persistent RLE embolus. Discussed with patient embolectomy. Will discuss further tomorrow, tentatively scheduled for Tuesday. Sandoval Galvez MD, R-4 Vascular Staff I saw and evaluated the patient. I agree with the findings and the plan of care as jannie hair in the resident s note. As noted she has persistent occlusive right popliteal thrombus as well as thrombus in aorta near bifurcation. Thrombus in right leg is likely embolic from aorta. Aortic thrombus is likely chronic as it was present on CT in 2010. Right leg embolus likely subacute as patient noted leg pain about 1-2 wks ago. While she is not having rest p ain, given her low DELORIS, I feel that there is a strong probability of having claudication whe n she starts ambulating. Since the ability to remove thrombus will decrease over time, I adv ised proceeding with right leg embolectomy through leg incision. Since the aortic thrombus i s likely chronic, I would favor treating this conservatively and anticoagulating to try to p revent further emboli. If she has further emboli in the future she may require aortic operat ion. We discussed at length with patient. She will let us know tomorrow if she wishes to pro ceed. Mirela Samano M.D. [facility] Vascular Surgery [address] [place] [address], [place] [phone] Email: [email or web address] Sandoval Ko MD - 03/15/2012 9:30 AM PSTPt clearly expressed that she has managed her Crohn's for many y ears including her perirectal abscesses. States that her current abscess is asymptomatic an d causing her no discomfort. She doesn't feel the need for the colorectal team to evaluate her or perform a physical exam. Will discuss with Dr. Babin but we will likely sign off to day. Jacoby Tovar MD Surgery [id number] signed by Sandoval Tovar MD at 03/15/2012 9:36 AM Renny Jeffrey MD - 03/14/2012 5:40 PM PSTPost Rounds Addendum: Interval events: -Radiology rounds- reviewed OSH CT abdomen and pelvis, significant for perirectal abscess, infrarenal aortic thrombus, celiac occlusion with collateral flow, dopplers with right popli teal artery occlusion, mid right anterior tibial, distal right anterior tibial and proximal right posterior tibial artery occlusions. -GI recommending continuing prednisone at current dose, no other agents for her Crohns man use of her likely infection. Recommends IR or EGS intervention. Also requesting previous col onoscopy results. GI continues to recommend repeat colonoscopy, but Mrs. Hartley would like to defer due to cost -IR contacted, reports that perirectal abscess too small to drain -Colorectal consulted, but patient not allowing rectal exam, but preliminary recs would not offer surgery due to her fistulating disease and that it's likely draining on its own, but they continue to follow -Hct dropped to 21.1, transfuse 2U PRBC's -Hematology recommends venofer once infectious process ruled out for severe RON, thought to be likely to malabsorption from Crohns. -Vascular surgery staff discussing options for thrombosis in right leg -Bilateral carotid duplex done today #Sepsis with perirectal abscess -Continue zosyn for now but will be difficult to fully treat without good source control -Colorectal surgery following, appreciate their recs. -Mrs. Hartley not wanting any interventions at this time #Crohn's disease -Continue prednisone 15 mg daily -GI not recommending additional immunosuppressive agents due to pt's current infection -Obtain previous colonoscopy results, although Mrs. Hartley said it was 15-20 years ago #Coagulopathy, unknown etiology -Continue heparin drip with plans to transition to coumadin with INR goal of 2-3 once H/H s table -Will check with hematology if lovenox may be a more feasible option for Mrs. Hartley with he r difficult financial situation -Check Anti phospholipid -Awaiting final recs regarding multiple RLE thromboses -Follow up bilateral carotid duplex #Anemia -2U PRBC's today -No overt source of bleeding, would be best if patient could undergo colonoscopy to check f or areas of bleeding, but patient refusing -Thought to be due RON due to Crohns, will defer venofer until infection has been managed -Transfuse for Hct <21 #Thrombocytosis, thought to be reactionary to RON and Crohns -Continue to monitor Gloria Anthony MD Neurology PGY1 Pager [phone] Daryl Singleton MD - 07/2011 4:57 PM PSTHematology Attending Consult Note: I saw and examined Ms. Young with the Hematology Fellow, Dr. Anthony Camejo in the [address] [place] [address] unit. I participated in the gunter components of today's hospital visit including review of the history, an independent physical examination, review of the laboratory data and formu lation of the medical management plan. I agree with Dr. Camejo's written assessment and re commendations. She is on unfractionated heparin with low therapeutic levels. Her drop in Hgb is concernin g for a bleed but none apparent on exam. Her leukocytosis and thrombocytosis is stable to im proved. Attending Physician s Total Time is 35 minutes, >50% spent counseling, coordination of ca re Daryl Arteaga MD, PhD Hematology Oncology [facility] DEPARTMENT: [id number] HEM [facility] Place of Service: - Inpatient Date of Service: 03/14/2012 Modifiers: GC - Resident Involved Suggested CPT: 88397 - Subsequent, Detailed/High complex 35 min nthony Camejo MD - 03/14/2012 4:57 PM PST Oncology Fellow Progress Note S: No acute events. Pt denies any black stools, any blood in urine or gums. No cp/sob, no f /c/s, some abdominal pain, nausea, no vomiting, tolerating some PO. Inpatient Medications: aspirin tablet 325 mg, 325 mg, Oral, DAILY dextrose IV 25 mL, 25 mL, Intravenous, PRN esomeprazole (aka NEXIUM) IV 40 mg, 40 mg, Intravenous, BID glucagon (aka GLUCAGEN) injection 1 mg, 1 mg, Intramuscular, PRN glucose chewable tablet 16 g, 16 g, Oral, Q15MIN PRN heparin 10 unit/mL IV flush syringe 50 Units, 50 Units, Intravenous, PRN heparin bolus from continuous infusion (protocol) 2,800 Units, 2,800 Units, Intravenous, NEEDED (BOLUS) heparin bolus from continuous infusion (protocol) 5,600 Units, 5,600 Units, Intravenous, NEEDED (BOLUS) heparin in D5W IV infusion 25,000 units/250 mL (100 units/mL), 1-2,000 Units/hr, Intravenou s, CONTINUOUS insulin lispro (aka HUMALOG) injection 1-16 Units, 1-16 Units, Subcutaneous, Q6H lactated ringers IV, 75 mL/hr, Intravenous, CONTINUOUS menthol-zinc oxide (aka CALAZIME) topical paste, , Topical, BID PRN morphine injection 4-8 mg, 4-8 mg, Intravenous, Q2H PRN ondansetron (aka ZOFRAN) injection 4 mg, 4 mg, Intravenous, Q12H PRN piperacillin-tazobactam (aka ZOSYN) IV 3.375 g, 3.375 g, Intravenous, Q6H predniSONE (aka DELTASONE) tablet 15 mg, 15 mg, Oral, HS promethazine (aka PHENERGAN) injection 50 mg, 50 mg, Intravenous, Q6H PRN O: Physical Exam: Last Vitals: BP 103/53 | Pulse 82 | Temp 37.1 C (98.8 F) | RR 16 | Wt 77.9 kg (171 lb 1 1.8 oz) | SpO2 94% 24 Hour Vital Min/Max: Systolic (24hrs), Av mmHg, Min:101 mmHg, Max:114 mmHgDiastolic (24hrs), Av mmHg, M in:48 mmHg, Max:68 mmHg Pulse Av.2 Min: 77 Max: 102 Temp Av.9 C (98.5 F) Min: 36.8 C (98.2 F) Max: 37.1 C (98.8 F) Resp Av.9 Min: 15 Max: 16 SpO2 Av % Min: 90 % Max: 95 % Intake/Output Summary (Last 24 hours) at 03/14/12 1657 Last data filed at 03/14/12 1645 Gross per 24 hour Intake 1715.5 ml Output 940 ml Net 775.5 ml GEN:Awake, alert, NAD HEENT:MMM, OP Clear Lungs:CTAB Heart:RRR, no m/r/g Abd:+BS, mild abdominal tenderness, no rebound/guarding Ext: No LE Edema, 1+ Left DP pulse, absent RLE pulses Labs: CBC with diff last 72 hours (or 3 results) Recent Labs Basename 03/14/12 1150 03/14/12 0503/13/1234103/12/121917 WBC 22.7* 23.4* 42.5* -- HB 6.9* 6.6* 7.9* -- HCT 22.5* 21.1* 25.5* -- PLT 593* 520* 606* -- NEUTROPERC -- -- -- 97* BANDPCT -- -- -- 0 LYMPHPERC -- -- -- 0* MONOPERC -- -- -- 3 BASOPERC -- -- -- 0 EOSPERC -- -- -- 0* Chemistries: Last 72 Hours (or 3 results): Recent Labs Basename 03/14/12 1303 03/14/12 0939 03/14/12 0610 03/14/1252403/13/1234103/12/12 200 6 03/12/121917 NA -- -- -- 139 143 141 -- K -- -- -- 3.8 3.3* 3.1* -- CL -- -- -- 106 109* 109* -- BICARB -- -- -- 23 19* 20* -- BUN -- -- -- 8 14 17 -- CR -- -- -- 0.73 0.66 0.77 -- GLU 145* 143* 125* -- -- -- -- CA -- -- -- 8.1* 8.0* 7.3* -- MG -- -- -- -- 2.8* -- 1.1* PO4 -- -- -- -- 1.1* -- 1.7* Lab Results Component Value Date TBILI 0.4 03/12/2012 AP 93 03/12/2012 TP 6.0* 03/12/2012 ALB 1.9* 03/12/2012 AST 14* 03/12/2012 ALT 8* 03/12/2012 A/P: The patient is a 56 yo WF with PMH Chron's disease, arterial thrombosis on coumadin, w ho was admitted for possible extension of thrombus off coumadin, possible chron's flare, per i-rectal abscess. 1. Thrombophilia -pt with significant PVD, thrombophilia -dopplers with bilateral arterial thrombus, R>L -also with h/o multiple intra-abdominal thrombi -continue heparin drip, goal Xa 0.3-0.7 -may keep on lower end of goal range given decreasing hemoglobin -once H/H stable, restart coumadin goal INR 2-3; pt will need close f/u until she gets insu rossana -consider checking antiphospholipid antibodies -stop aspirin 2. Iron Deficiency Anemia -iron studies c/w iron deficiency, likely from malabsorption from Chron's, which is impedin g reticulocytosis and exacerbating the anemia -may administer venofer 200 mg IV x5 doses; can be consecutive, but must be given within 14 days -would delay iron administration until infectious processes resolved 3. Leukocytosis -improving; likely 2/2 infectious process -continue to monitor 4. Thrombocytosis -reports of platelets up to 1 million; currently stable -slight elevation likely reactive in the setting of chron's, chronic iron deficiency anemia 5. Anemia -H/H continues to drop -agree with transfusion of 2 units pRBCs -consider further GI evaluation to r/o bleeding source; no obvious source of bleeding -would monitor serial H/H; transfusion support as needed Pt seen and discussed with Dr. Arteaga who agrees with the A&P as above. MD Hematology/Oncology Fellow Pager # [phone] signed by Daryl Arteaga MD at 03/14/2012 10:20 PM Gopal Staley MD - 03/14/2012 1:55 PM PSTFormatting of this note might be different from the origin al. Gastroenterology Follow-Up Note 03/14/2012 CC/ID: Abdominal pain, N/V/D, elevated WBC and lactate with hypotension IMPRESSION/PLAN: Mackenzie Hartley is a 56 year old female with Crohn's, depression, HTN, and previous splenic thr ombosis and intra-abdominal thromboses who was transferred from outside hospital for concern for mesenteric ischemia with markedly elevated WBC count, prior abdominal pain, and mildly elevated lactate. 1. Sepsis with likely perirectal abscess Comment: Imaging seems to indicate patient has abscess present which would explain clinical presentation. Lactate trended downward and patient is now clinically sable on antibiotic t herapy. Abscess would likely need definitive therapy solution with percutaneous drain place ment or I&D by surgical intervention. Would not recommend any additional treatments other t hung prednisone at this time given abscess. - Continue Zosyn for empiric coverage - Continue prednisone 15 mg PO daily - Consider consult to IR or EGS for definitive management of abscess - Agree with diet - Will follow blood cx - At this point, would not recommend any additional immunosuppressive or immunomodulatory t reatment given likely abscess 2. Crohn's disease Comment: Patient had previous good control on Remicade however ceased therapy roughly one y ear ago. It is possible patient has developed antibodies to Remicade which would render it n ot an option for treatment. It may be that Humira is the best line for treatment in this pat ient. Will check to see if this is possible and case management may be able to provide some assistance regarding this patient's financial situation. Patient refused colonoscopy. - Prednisone 15 mg daily but not really for treatment Recommendations communicated with [employer] internal audit consultant. We will continue to follow. This plan was discussed and formulated with gastroenterology at [facility], Dr. Casiano. Please call with any questions. Bigg Robles, R1 Pager: [phone] Attending Attestation: I personally interviewed the patient, performed the relevant elements of [facility], and formulated the assessment and plan with Dr. oRbles. See Dr. Robles' note fo r further details. Review of the recent CT reveals perirectal ulcer. On further discussion with patient, she reports several occasions of perirectal abscess with self-drainage either with digital manip ulation or with a syringe. We had a twenty minute discussion regarding the CT findings and the GI team recommendations. Specifically, I discussed the goals of therapy, which include allowing her to be functional and able to eat and maintain her weight. To this end, I recom mended CT-guided drain placement in the abscess, with a short course of antibiotics until dr pizarro is accomplished. I would then recommend a colonoscopy in 4-6 weeks to evaluate sever ity of disease and extent of disease, thus allowing recommendations on medical or surgical t herapy. 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 A colonoscopy may find limited d isease, for example at the anastomotic site, which could be amenable to surgical resection w ith post-operative therapy. After discussing this plan, Mackenzie expressed an understanding of the goals of therapy but co ntinued to insist that she did not want any intervention, including abscess drainage or colo noscopy. She stated that she is waiting for the new year for her insurance to commence so t hat she may resume her biologic therapy. I explained that I would not feel comfortable begi nning biologic therapy unless the abscess had been appropriately managed and the extent and severity of her disease had been assessed. She again emphasized that she does not want thes e interventions, having "lived with the disease" for 38 years. My recommendation would be kaiser Ordoñez on antibiotics. The low-dose prednisone can be maintained (and possibly slowl y tapered in the future) given likely adrenal insufficiency. However, the prolonged prednis one use will be unlikely to provide her mucosal healing or return of normal bowel function a nd will like pose risks associated with long-term corticosteroid use. She may follow-up wit h her local landscape artist or may follow up with me at [facility] if she wishes to consider di fferent evaluation or treatment. Gopal Casiano MD [facility] Sanderdoctor of pharmacy Department of Gastroenterology INTERVAL HISTORY: - NAEO - VSS - Tolerating regular diet this am - Reviewed imaging with radiology and demonstrates posterior pelvis rim enhancing area 2 cm x 4 cm. - Also area of previous Crohn's resection looks to have active disease at margins - Continues to worry about finances - Adamant refusal of procedures to visual disease via colonoscopy or for drain placement in abscess INPATIENT MEDICATIONS aspirin tablet 325 mg, 325 mg, Oral, DAILY dextrose IV 25 mL, 25 mL, Intravenous, PRN esomeprazole (aka NEXIUM) IV 40 mg, 40 mg, Intravenous, BID glucagon (aka GLUCAGEN) injection 1 mg, 1 mg, Intramuscular, PRN glucose chewable tablet 16 g, 16 g, Oral, Q15MIN PRN heparin 10 unit/mL IV flush syringe 50 Units, 50 Units, Intravenous, PRN heparin bolus from continuous infusion (protocol) 2,800 Units, 2,800 Units, Intravenous, NEEDED (BOLUS) heparin bolus from continuous infusion (protocol) 5,600 Units, 5,600 Units, Intravenous, NEEDED (BOLUS) heparin in D5W IV infusion 25,000 units/250 mL (100 units/mL), 1-2,000 Units/hr, Intravenou s, CONTINUOUS insulin lispro (aka HUMALOG) injection 1-16 Units, 1-16 Units, Subcutaneous, Q6H lactated ringers IV, 75 mL/hr, Intravenous, CONTINUOUS menthol-zinc oxide (aka CALAZIME) topical paste, , Topical, BID PRN morphine injection 4-8 mg, 4-8 mg, Intravenous, Q2H PRN ondansetron (aka ZOFRAN) injection 4 mg, 4 mg, Intravenous, Q12H PRN piperacillin-tazobactam (aka ZOSYN) IV 3.375 g, 3.375 g, Intravenous, Q6H predniSONE (aka DELTASONE) tablet 15 mg, 15 mg, Oral, HS promethazine (aka PHENERGAN) injection 25 mg, 25 mg, Intravenous, Q6H PRN EXAM BP 101/48 | Pulse 86 | Temp 37 C (98.6 F) | RR 16 | Wt 77.9 kg (171 lb 11.8 oz) | SpO2 93% Systolic (24hrs), Av mmHg, Min:101 mmHg, Max:119 mmHg Diastolic (24hrs), Av mmHg, Min:48 mmHg, Max:73 mmHg Pulse Av.2 Min: 77 Max: 104 Temp Av.9 C (98.5 F) Min: 36.8 C (98.2 F) Max: 37.1 C (98.8 F) Resp Av.9 Min: 15 Max: 17 SpO2 Av.2 % Min: 90 % Max: 95 % GEN: NAD, appears well CV: RR, Good S1/S2 PULM: CTAB ABD: +bs, s, nt, nd LABS CBC with diff last 72 hours (or 3 results) Recent Labs Basename 03/14/12 1150 03/14/12 0525 03/13/12 0342 03/12/12 1918 WBC 22.7* 23.4* 42.5* -- HB 6.9* 6.6* 7.9* -- HCT 22.5* 21.1* 25.5* -- PLT 593* 520* 606* -- NEUTROPERC -- -- -- 97* BANDPCT -- -- -- 0 LYMPHPERC -- -- -- 0* MONOPERC -- -- -- 3 BASOPERC -- -- -- 0 EOSPERC -- -- -- 0* Chemistries: Last 72 Hours (or 3 results): Recent Labs Basename 03/14/12 0525 03/13/12 0342 03/12/12200503/12/12 1918 NA 139 143 141 -- K 3.8 3.3* 3.1* -- CL 106 109* 109* -- BICARB 23 19* 20* -- BUN 8 14 17 -- CR 0.73 0.66 0.77 -- CA 8.1* 8.0* 7.3* -- MG -- 2.8* -- 1.1* PO4 -- 1.1* -- 1.7* CRP level 14.0 IMAGING Reviewed outside imaging with radiologist at [facility] and CT abd and pelvis shows 2 cm x 4 cm p osterior pelvic rm-enhancing lesion suspicious for possible abscess. Also, site of previous surgical resection near terminal small bowel shows inflammation concerning for active infla mmation. Mirela Josue MD - 03/14/2012 9:58 AM PST Vascular and Endovascular Surgery Inpatient Progress Note Patient name: Mackenzie Hartley Attending Surgeon: Venkata Hook MD Admit Date: 03/12/2012 Date: 03/14/2012 Subjective: Pain unchanged to mildly improved. Gerardo. Assessment and Plan: Mackenzie Hartley is a 56 year old female now hospital day 2 admitted for cool LLE and chron's f lair. - per vascular surgery perspective, no reason not to advance diet - hx TIA: carotid duplex ultrasound - LLE ischemia: continue anticoagulation, further instructions/plan pending discussion with staff regarding more invasive intervention - would remove CVC if not needed Objective Vitals: Last Vitals: BP 106/53 | Pulse 77 | Temp 36.8 C (98.2 F) | RR 16 | Wt 77.9 kg (171 lb 1 1.8 oz) | SpO2 93% 24 Hour Vital Min/Max: Systolic (24hrs), Av mmHg, Min:105 mmHg, Max:123 mmHg Diastolic (24hrs), Av mmHg, Min:49 mmHg, Max:79 mmHg Pulse Min: 77 Max: 110 Temp Min: 36.5 C (97.7 F) Max: 37.1 C (98.8 F) Resp Min: 15 Max: 21 SpO2 Min: 90 % Max: 98 % Intake/Output Summary (Last 24 hours) at 03/14/12 0958 Last data filed at 03/14/12 0501 Gross per 24 hour Intake 1659 ml Output 730 ml Net 929 ml Physical Examination: General: No apparent distress. Resting. Pulmonary: Unlabored, no cough. Cardiac: Regular rate and rhythm no obvious murmurs, rubs or gallops. Abdomen: mildly tender, non-distended, normoactive bowel sounds. Extremities: Gross appearance and temperature unchanged from prior exams, R DP triphasic, R PT biphasic Neurological: Alert and oriented to person, place, time, and reason for hospitalization. Laboratory data: CBC with diff last 72 hours (or 3 results) Recent Labs Basename 03/14/12 0525 03/13/1234103/12/128 WBC 23.4* 42.5* 40.1* HB 6.6* 7.9* 8.2* HCT 21.1* 25.5* 26.0* PLT 520* 606* 562* NEUTROPERC -- -- 97* BANDPCT -- -- 0 LYMPHPERC -- -- 0* MONOPERC -- -- 3 BASOPERC -- -- 0 EOSPERC -- -- 0* Chemistries: Last 72 Hours (or 3 results): Recent Labs Basename 03/14/12 0939 03/14/12 0610 03/14/12 0503/13/1234103/12/12200503/12/12 191 8 NA -- -- 139 143 141 -- K -- -- 3.8 3.3* 3.1* -- CL -- -- 106 109* 109* -- BICARB -- -- 23 19* 20* -- BUN -- -- 8 14 17 -- CR -- -- 0.73 0.66 0.77 -- GLU 143* 125* 86 -- -- -- CA -- -- 8.1* 8.0* 7.3* -- MG -- -- -- 2.8* -- 1.1* PO4 -- -- -- 1.1* -- 1.7* Liver Tests: Last 72 hours (or 3 results) Recent Labs Basename 03/12/12200503/12/12 1918 AST 14* -- ALT 8* -- TBILI 0.4 -- AP 93 -- ALB 1.9* 1.9* TP 6.0* -- Lab Results Component Value Date APTT 89.2* 03/13/2012 FIBRINOGEN 716* 03/12/2012 Dr. Hook is the attending of record for this patient encounter. Becca Moncada MD General Surgery, R2 Pager: [phone] [facility] Staff I saw and evaluated the patient. I agree with the findings and the plan of care as jannie hair in the resident s note. Left foot warm and well perfused. Patient pain-free. Will repe at CTA to see if there has been any thrombus progression. No urgent need for surgery on left leg at this point. Mirela Samano M.D. [facility] Vascular Surgery [address] [place] [address], [address] [id number] Email: [email or web address] Irene Aguilera MD - 03/14/2012 3:52 AM PST General Medicine Transfer Accept Note Brief Hospital Summary: Ms. Hartley is a 56 year old woman with history of Crohn's disease (diagnosed at age 17, curr ently on prednisone 20mg daily, previously on Remicade, however discontinued this one year a go due to cost), multiple prior thrombotic events, included TIA X 3, splenic thrombosis (August 2010), and intra-abdominal thromboses who presented to OSH with several days of nausea, vom iting, and abdominal pain, consistent with her prior Crohn's flares. She also describes neela t approx. 5 days prior to presentation, she experiences acute onset of right calf cramping a nd pain which resulted in a cool right foot afterwards. Warm compresses did not help, howev er the pain and coolness dissipated in about an hour without any further intervention. Her abdominal pain and nausea had much improved after presented to the ED at OSH. Reportedly, C T scan at [facility] was remarkable for occlusive disease of the celiac artery and hepatic arteries, intraluminal thrombi in the infrarenal aorta, and small bowel ischemia. She also had leukocytosis to 45 with a left shift, anemia, and thrombocytosis (platelets to 759). Her abdominal exam was not acute and she remained hemodynamically stable. Transferre d to [facility] for possible thrombectomy, initiated heparin therapy, and has been followed by vas cular surgery. She was also started on Vanc/Zosyn with concern for sepsis secondary to jack l perforation vs. Ischemia. Regarding her multi-vessel thrombotic disease, she was placed on coumadin after incidental finding of a splenic infarct in August 2010, however, due to lack of insurance coverage, she st opped taking coumadin 3 months ago and has been taking ASA 81mg X3 daily since that time. S he has had multiple TIAs over these preceding two months with aphasia which resolves after a few minutes. 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 She was started on Remicade 3 years ago and experienced very good control of her symptoms, however she had to discontinue this thera py one year ago and has had increased frequency and severity of her flares since that time. She describes a flare every 1-2 months currently whereas previously she would have one mayb e 1-2 times per year. 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 She is also s/p cecectomy. Current Symptoms: Still has abdominal pain, however is tolerating small amounts of clear liquids. Loose stoo ls without blood, decreasing in frequency. No further right leg pain, however does describe mild tingling in the toes of her right foot. Feels very depressed regarding her multiple i llnesses and lack of health insurance. Physical Examination: Last 24 hour min/max Temp: 36.8 C (98.2 F) Temp Min: 36.5 C (97.7 F) Max: 37.1 C (98.8 F) Pulse: 79 Pulse Min: 79 Max: 110 Resp: 16 Resp Min: 15 Max: 21 BP: 105/61 mmHg BP Min: 105/61 Max: 142/75 SpO2: 92 % SpO2 Min: 92 % Max: 98 % There is no height on file to calculate BMI. General: Awake, alert, NAD, afebrile HEENT: PERRLA, EOM intact, neck soft, supple, no lymphadenopathy Lungs: CTA bilaterally Heart: Audible s1, s2, RRR, no murmur Abd: Soft, mildly tender, non-distended, hyperactive bowel sounds, no guarding or rebound Extremities: Warm, well perfused, however right foot is cooler to touch that the left. No n-palpable DP pulses with palpable PT pulses bilaterally. Laboratory Interpretation: Lab Results Component Value Date WBC 42.5 03/13/2012 HB 7.9 03/13/2012 HCT 25.5 03/13/2012 PLT 606 03/13/2012 MCV 77.9 03/13/2012 RDW 23.0 03/13/2012 Lab Results Component Value Date NA 143 03/13/2012 K 3.3 03/13/2012 CL 109 03/13/2012 BICARB 19 03/13/2012 BUN 14 03/13/2012 CR 0.66 03/13/2012 GLU 111 03/13/2012 CA 8.0 03/13/2012 AST 14 03/12/2012 ALT 8 03/12/2012 AP 93 03/12/2012 TBILI 0.4 03/12/2012 TP 6.0 03/12/2012 ALB 1.9 03/12/2012 Lab Results Component Value Date APTT 89.2* 03/13/2012 FIBRINOGEN 716* 03/12/2012 Lab Results Component Value Date INRPT 1.17 03/12/2012 Lab Results Component Value Date LACTICACID 1.4 03/13/2012 Imaging Interpretation: ABDOMINAL AORTIC AND ILIAC ARTERIAL DUPLEX SCAN: 03/13/2012 Dictated 03/13/2012 CLINICAL INDICATION: Abdominal aortic thrombus. FINDINGS: The abdominal aorta, common iliac, internal iliac, and external iliac arteries were examined with the duplex scanner. Technically, this was a very difficult exam with limited visualization of the abdominal aorta due to overlying bowel gas. The supraceliac aorta and the infrarenal aorta were visualized with normal antegrade flows and velocities. However, the distal abdominal aorta could not be visualized due to overlying gas. On the right side, the common iliac, internal iliac, and external iliac arteries appear patent with normal antegrade flows and velocities. However, there may be non-occlusive arterial thrombus involving the right common iliac artery. On the left side, the common iliac, internal iliac, and proximal left external iliac arteries were obscured by overlying bowel gas. The aun-eu-meguyd left external iliac arteries appear patent with normal antegrade flows and velocities. IMPRESSION: Abnormal abdominal aortic and iliac arterial duplex scan suggesting non-occlusive thrombus involving the right common iliac artery. Significant portions of the abdominal aorta and the left iliac arterial system were obscured by overlying bowel gas. Lower extremity duplex pending Impression: Mrs. Hartley is a 56 year old woman with history of severe Crohn's disease and multi-vessel o cclusive disease who presented with acute onset of abdominal pain, nausea, and vomiting arelis lar to her prior Crohn's flares with supportive imaging and transient pain and coolness of t he right lower extremity concerning for transient arterial occlusion. Reported CT findings at [facility] are also concerning for diffuse intra-abdominal arterial thrombosis which may be precipitating mesenteric ischemia. Plan: #Abdominal Pain: Concerning for mesenteric ischemia in the setting of leukocytosis and a m ildly elevated lactate. Differential also includes an intraabdominal abscess and Crohn's fl are, however the latter is less likely given the acuity of her presentation. -GI following and agrees with continuing Zosyn -Follow up blood and urine cultures -Will attempt to obtain recent record of colonoscopy and outside CT scan -Clear liquid diet, advance as tolerated -Starting prednisone 15mg PO daily #Multi-arterial thrombosus: Etiology unclear at this point. Vascular surgery is following the patient. -Duplex study of the lower extremities is currently pending. -Continue heparin drip with the intention of bridging to coumadin # Crohn's Disease: Poorly controlled with lack of therapy due to patient's lack of insuran ce coverage. GI is following the patient as well. -Per GI recs, started prednisone 15mg daily -Check CRP -Will need most recent colonoscopy report from OSH #Leukocytosis: Improving from initial value of 45,000 on presentation. Lack of immature m yeloid forms or monocytes on smear is leading hematology to favor a reactive leukocytosis in this case versus malignancy -Follow CBCs with diff -Continue to treat presumed infection #Thrombophilia: Normal in size and well granaulated on peripheral smear without "giant" kailash telets. Initially there was suspicion for HIT, however platelets have remained stable on co ntinued therapy with heparin -Bridge to coumadin once there are no further planned vascular procedures. -Patient will need lifelong anticoagulation due to multitude of thrombotic events #Microcytic Anemia: Stable compared to prior CBCs without evidence of bleeding or hemolysi s. Possibly due to inflammatory bowel disease -Check Vitamin B12 (hypersegmented neutrophils on smear) -Hematology recommends replacement with IV iron if supplementation is necessary -Reticulocyte count pending -iron studies Irene Pradhan MD Internal Medicine, PGY-1 onCarlos A schneider MD - 03/13/2012 1:20 PM PST EGS TRANSFER NOTE PROGRESS NOTE: Hospital Day:1 Author; CARLOS A SALCIDO MD Attending Physician: Bowen Bergeron History: 56 y/o female with crohn's and severe vascular occlusive disease who presents with likely c rohn's flare with evidence of multivessel occlusive disease Physical Exam: Last Vitals: BP 117/71 | Pulse 110 | Temp 36.5 C (97.7 F) | RR 21 | Wt 69.8 kg (153 lb 14.1 oz) | SpO2 97% O2 Delivery Device: None (room air) (03/13/12 1200) 24 Hour Vital Min/Max: Systolic (24hrs), Av mmHg, Min:108 mmHg, Max:142 mmHgDiastolic (24hrs), Av mmHg, M in:54 mmHg, Max:82 mmHgPulse Av.8 Min: 94 Max: 118 Temp Av.8 C (98.2 F) Min: 36.5 C (97.7 F) Max: 37.2 C (99 F) Resp Av.3 Min: 13 Max: 21 SpO2 Av.6 % Min: 93 % Max: 98 % Exam: AOx3, NAD Unlabored RRR Abd soft, mild diffuse tenderness, nondistended. No peritoneal signs R foot cooler than left, palpable DP/PT on left foot, no palpable pulses on the right. R f oot PT and AT signals, no DP signal. Assessment and Plan: 56 y/o female with crohn's and severe vascular occlusive disease who presents with likely c rohn's flare with evidence of multivessel occlusive disease. Plan to transfer to medicine f or medical management of crohn's. Crohn's - GI consulted, will likely need immunomodulators. Surgery ok with slow advancemen t of diet but final diet recs per GI. Zosyn per GI Multivessel occlusions/thrombii: vascular surgery following. Continue heparin drip, transit ion to coumadin. Vascular labs pending. Should trend heparin levels rather than PTT. 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, peripheral smear for leukocytosis Ceftriaxone for UTI CARLOS A SALCIDO MD R2, General Surgery [facility] 03/13/2012 1:20 PM Current Facility-Administered Medications Medication Dose Route Frequency Provider Last Rate Last Dose aspirin tablet 325 mg 325 mg Oral DAILY Taylor Macias MD cefTRIAXone (aka ROCEPHIN) IV 1 g 1 g Intravenous Q24H Bibiana Adams PA-C 1 g at 1 05/13/11 2301 dextrose IV 25 mL 25 mL Intravenous PRN Bibiana Adams PA-C esomeprazole (aka NEXIUM) IV 40 mg 40 mg Intravenous BID Gayatri Christensen PA-C 40 mg at 03/13/12 0736 glucagon (aka GLUCAGEN) injection 1 mg 1 mg Intramuscular PRN Bibiana Kaiser Adams, PA-C glucose chewable tablet 16 g 16 g Oral Q15MIN PRN Bibiana Kaiser Adams, PA-C heparin bolus from continuous infusion (protocol) 2,800 Units 2,800 Units Intravenous NEEDED (BOLUS) Bibiana Kaiser Adams, PA-C heparin bolus from continuous infusion (protocol) 5,600 Units 5,600 Units Intravenous NEEDED (BOLUS) Bibianagarrett Adams PA-C 5,600 Units at 03/13/12 0502 heparin in D5W IV infusion 25,000 units/250 mL (100 units/mL) 1-2,000 Units/hr Intrave nous CONTINUOUS Gayatri Christensen PA-C 15.5 mL/hr at 03/13/12 1300 1,550 Units/hr at 1300 insulin lispro (aka HUMALOG) injection 1-16 Units 1-16 Units Subcutaneous Q6H Bibiana Adams PA-C 1 Units at 03/13/12 0542 lactated ringers IV 75 mL/hr Intravenous CONTINUOUS Bibiana Adams PA-C 75 mL/hr at 1 05/14/11 1300 75 mL/hr at 03/13/12 1300 menthol-zinc oxide (aka CALAZIME) topical paste Topical BID PRN IVÁN PantojaC morphine injection 4-8 mg 4-8 mg Intravenous Q2H PRN Xin Max MD 4 mg at 1207 ondansetron (aka ZOFRAN) injection 4 mg 4 mg Intravenous Q12H PRN DARLING Pantoja-C 4 mg at 03/12/12 2353 promethazine (aka PHENERGAN) injection 25 mg 25 mg Intravenous Q6H PRN DARLING Ruiz-C 25 mg at 03/13/12 0736 Mirela Josue MD - 03/13/2012 12:45 PM PST Vascular Surgery Intensive Care Unit Progress Note Author: Becca Moncada MD Attending Physician: Do Santamaria MD Date: 03/13/2012 Identification: Mackenzie Hartley is a 56 y.o. female with past medical history significant for crohn's disease. She presented as transfer with hx of 2 weeks of cool right foot and leg cr amping in addition to severe abdominal pain and WBC >42k. Interval Events: Pain controlled, leg feels unchanged, on heparin drip, duplexes ordered b ut pending Assessment and Plan: (Formulated from the following data) Arterial occlusions in celiac, RLE as well as thrombus in aorta and hepatic artery: continu e heparin gtt, restart coumadin and bridge, will follow up on final interpretation of duplex studies, continue regular neurovascular checks Abdominal pain: no evidence that this is vascular in nature Crohn's: agree w GI consultation, appreciate their assistance Continue care as per EGS, Vascular Surgery will continue to follow Data: Medications: aspirin tablet 325 mg, 325 mg, Oral, DAILY cefTRIAXone (aka ROCEPHIN) IV 1 g, 1 g, Intravenous, Q24H dextrose IV 25 mL, 25 mL, Intravenous, PRN esomeprazole (aka NEXIUM) IV 40 mg, 40 mg, Intravenous, BID glucagon (aka GLUCAGEN) injection 1 mg, 1 mg, Intramuscular, PRN glucose chewable tablet 16 g, 16 g, Oral, Q15MIN PRN heparin bolus from continuous infusion (protocol) 2,800 Units, 2,800 Units, Intravenous, NEEDED (BOLUS) heparin bolus from continuous infusion (protocol) 5,600 Units, 5,600 Units, Intravenous, NEEDED (BOLUS) heparin in D5W IV infusion 25,000 units/250 mL (100 units/mL), 1-2,000 Units/hr, Intravenou s, CONTINUOUS insulin lispro (aka HUMALOG) injection 1-16 Units, 1-16 Units, Subcutaneous, Q6H lactated ringers IV, 75 mL/hr, Intravenous, CONTINUOUS menthol-zinc oxide (aka CALAZIME) topical paste, , Topical, BID PRN morphine injection 4-8 mg, 4-8 mg, Intravenous, Q2H PRN ondansetron (aka ZOFRAN) injection 4 mg, 4 mg, Intravenous, Q12H PRN promethazine (aka PHENERGAN) injection 25 mg, 25 mg, Intravenous, Q6H PRN OBJECTIVE: Vital Signs: BP 123/79 | Pulse 105 | Temp 36.7 C (98.1 F) | RR 17 | Wt 69.8 kg (153 lb 14.1 oz) | Sp O2 98% Systolic (24hrs), Av mmHg, Min:108 mmHg, Max:142 mmHg Diastolic (24hrs), Av mmHg, Min:54 mmHg, Max:82 mmHg Pulse Av.9 Min: 94 Max: 118 Temp Av.8 C (98.3 F) Min: 36.5 C (97.7 F) Max: 37.2 C (99 F) Resp Av.2 Min: 13 Max: 21 SpO2 Av.6 % Min: 93 % Max: 98 % Intake/Output Summary (Last 24 hours) at 03/13/12 1246 Last data filed at 03/13/12 1204 Gross per 24 hour Intake 2126 ml Output 1545 ml Net 581 ml Physical Exam: General Appearance: AAOx3, worried but NAD Respiratory: unlabored Cardiovascular: RRR Gastrointestinal: soft, NTND Ext: + R PT and AT biphasic signals, absent R DP signal, palpable right femoral; left palp able DP and PT, R foot cooler than left, no leg pain at rest or upon examination Data: No Data Recorded LastCBG Intervention: Notified MD (Comment);Medication given (03/12/12 230) CBC with diff last 72 hours (or 3 results) Recent Labs Basename 03/13/1234103/12/121917 WBC 42.5* 40.1* HB 7.9* 8.2* HCT 25.5* 26.0* PLT 606* 562* NEUTROPERC -- 97* BANDPCT -- 0 LYMPHPERC -- 0* MONOPERC -- 3 BASOPERC -- 0 EOSPERC -- 0* Chemistries: Last 72 Hours (or 3 results): Recent Labs Basename 03/13/1234103/12/12200503/12/121917 NA 143 141 140 K 3.3* 3.1* 3.4 CL 109* 109* 109* BICARB 19* 20* 20* BUN 14 17 18 CR 0.66 0.77 0.76 CA 8.0* 7.3* 7.4* MG 2.8* -- 1.1* PO4 1.1* -- 1.7* Liver Tests: Last 72 hours (or 3 results) Recent Labs Basename 03/12/12200503/12/121917 AST 14* -- ALT 8* -- TBILI 0.4 -- AP 93 -- ALB 1.9* 1.9* TP 6.0* -- Lab Results Component Value Date PLT 606* 03/13/2012 APTT 89.2* 03/13/2012 No results found for this basename: ph, pco2, po2, hco3, O2sat, FIO2 No results found for this basename: culture The attending provider for this patient care encounter is Dr. Hook. Becca Moncada MD General Surgery, R2 Pager: [phone] Vascular Staff I saw and evaluated the patient. I agree with the findings and the plan of care as jannie hair in the resident s note. Patient with distal aortic atherosclerosis/thrombus with evide nce of embolization to right leg. Time course of embolization unclear. Patient states that r ight leg started to feel cool to her about 2 weeks ago. Currently she has good Doppler signa ls in foot with no pain. No urgent surgical indication. No evidence of visceral ischemia - c eliac and SMA patent with all aortic thrombus distal to visceral artery origins. Depending o n her subsequent hospital course, if she develops symptoms in the right leg we could offer h er revascularization at a later time. Mirela Samano M.D. [facility] Vascular Surgery [address] [place] [address], [address] [phone] Email: [email or web address] Richie Goodman MD - 06/2011 11:15 AM PSTI was present and rounded with the SPREADER BOX OPERATOR today. I interviewed and examined the patient. I reviewed the history, as documented today. I agree with the SPREADER BOX OPERATOR's assessmen t and plan. Pt is stable and issues really revolve around hematology and coagulation. Man sfer to medicine service for f/u. No surgical issues at present 15 min ccc time Juan Vick MD FACS Trauma/Critical Care/ Emergency General Surgery Gayatri Owusu PA-C - 03/13/2012 11:15 AM PST Trauma / Surgical Critical Care Service - Progress Note Name: MACKENZIE HARTLEY Date: 03/13/2012 Time: 11:24 AM Author: GAYATRI CHRISTENSEN PA-C HPI: 56 y.o. y/o female admitted on 03/12/2012 7:10 PM with below current issues. Hospital Day #1 ICU Day #2 Procedures: none Access: RIJ (Insertion date 03/12) ABX: Zosyn and vanco (Day 2/?) 24hr events: Remains stable. Good UOP. Afebrile. Current meds: Rocephin nexium Heparin infusion LR 75 Morphine IV PRN zofran PRN Labs: [facility] reviewed Significant Results K 3.3 Mg 2.8 Phos 1.1 BUN/Cr 14/0.66 WBCs 42.5 HCT 25.5 Plts 606 PTT 45.4 Heparin level 0.81 Imaging: CXR: last night. IJ line is in adequate position. No acute lung pathology. Vitals: Last 24 hour min/max Temp: 36.7 C (98.1 F) Temp Min: 36.5 C (97.7 F) Max: 37.2 C (99 F) Pulse: 105 Pulse Min: 94 Max: 118 Resp: 17 Resp Min: 13 Max: 21 BP: 123/79 mmHg BP Min: 108/61 Max: 142/75 SpO2: 98 % SpO2 Min: 93 % Max: 98 % There is no height on file to calculate BMI. Intake/Output Summary (Last 24 hours) at 03/13/12 1124 Last data filed at 03/13/12 1100 Gross per 24 hour Intake 2051 ml Output 1470 ml Net 581 ml Physical exam: Very tearful on exam. Several questions about the expense of the transfer and hospitalizati on. Briskly follows commands. Moving all extremities. Appears in no distress. Lungs clear on RA RRR Abdomen soft, flat, mild tenderness in RLQ. No peritoneal signs. Ext thin, warm, no edema. +PT bilaterally. IJ site okay Assessment: 56y/o female with Crohn's disease and multiple known visceral and aortic thrombus transfer red from [place] last night with concerns for ischemic bowel. Active problem/Plan: 1. Crohn's disease GI consulted. Will discuss appropriate dose of steroids with consulting service. 2. Abdominal pain visceral perfusion appears adequate per vascular. Exam not consistent wit h mesenteric ischemia. Likely Crohn's flair. 3. Chronic celiac, common hepatic, and infrarenal aortic arterial thrombi appreciate vascul ar consult, stable and chronic. Cont therapeutic anticoagulation. Anticipate discharge with warfarin. 4. Report of heparin induced thrombocytopenia on referring history and physical in media ta b. plts >1000K earlier this year and currently 606K. Will recommend hematology consult. W ill also have them eval peripheral smear given profound and persistent leukocytosis. Postspl enectomy plus crohn's flair? Resolved problems/Plan: F:NPO A:morphine S:none T:scds and anticogulation H:HOB elevated U:PPI G:SSI Lines:Can likely remove RIJ Dispo:[facility] transfer. Needs coordination of care among several services. Discussed with Dr. Vick on SICU rounds. Erin Christensen PA-C Dept of Surgery SICU/Trauma Jf Jones MD - 10:20 AM PST EGS PROGRESS NOTE: Attending Physician: Bowen 03/13/2012 ID: 56 y/o female with crohn's and severe vascular occlusive disease who presents with likely c rohn's flare with evidence of multivessel occlusive disease 24 HR EVENTS: Started on heparin drip GI consulted Feels much improved. Mild nausea and mild RLQ pain. PHYSICAL EXAM: General: Alert and oriented, NAD Respiratory:unlabored CV: RRR Abdomen:soft, nontender, nondistended. Minimally tender in the lower right lower quadrant, no peritoneal signs Extremities: Warm LABS: Chemistries Recent Labs Basename 03/13/12 0802 03/13/12 0541 03/13/12 0342 03/12/12200503/12/12 1918 NA -- -- 143 141 140 K -- -- 3.3* 3.1* 3.4 CL -- -- 109* 109* 109* BICARB -- -- 19* 20* 20* BUN -- -- 14 17 18 CR -- -- 0.66 0.77 0.76 GLU 115* 141* 115* -- -- CA -- -- 8.0* 7.3* 7.4* MG -- -- 2.8* -- 1.1* PO4 -- -- 1.1* -- 1.7* AST -- -- -- 14* -- ALT -- -- -- 8* -- AP -- -- -- 93 -- TBILI -- -- -- 0.4 -- ALB -- -- -- 1.9* 1.9* No results found for this basename: ph, pco2, po2, hco3, O2sat, FIO2 CBC CBC with diff last 72 hours (or 3 results) Recent Labs Basename 03/13/12 0342 03/12/12 1918 WBC 42.5* 40.1* HB 7.9* 8.2* HCT 25.5* 26.0* PLT 606* 562* NEUTROPERC -- 97* BANDPCT -- 0 LYMPHPERC -- 0* MONOPERC -- 3 BASOPERC -- 0 EOSPERC -- 0* ACTIVE PROBLEMS AND PLAN: 56 year old woman with Crohn's Disease and infrarenal aortic thrombus and occlusion in sple everette artery, common hepatic, and celiac arteries who was transferred to [facility] for management o f vascular disease and possible bowel ischemia. No evidence of bowel ischemia, bowel thicken ing likely Crohn's flare. 1. Crohn's flare: GI consult. Consider transfer to medicine for [facility]hn[facility] management [facility] 2. Multivessel occlusions/thrombii: vascular surgery following. Continue heparin drip, tra nsition to coumadin. Vascular labs pending. Should trend heparin levels rather than PTT 3. Will consult hematology to aid with anticoagulation options for occlusive disease and qu estionable history of HIT. For now will continue with close monitoring. Will start asa giv en their recs. 4. Leukocytosis: c diff negative. Will dc vanc. Likely consistent with crohns plus UTI 5. UTI: ceftriaxone 6. Dispo pending GI evaluation 7. Blood cultures pending; as is vascular imaging Ghulam Macias MD Plastic Surgery, R3 Diagnoses: 555.9B Crohn disease ATTENDING ADDENDUM I saw and examined Mackenzie Hartley with the residents on 03/13 and agree with the assessment and plan as outlined in this note and participated in the planning of care. Ms. Hartely has been stable after ICU admission yesterday. She initially had concern for acute mesenteric occlusi on/ischemia. Her symptoms are improved. Her abdominal exam does not reveal peritonitis. [facility] ular surgery recommended a heparin drip given her subtherapeutic INR. Hematology will be con sulted for her leukocytosis and declining platelet count in the setting of heparin therapy. Gastroenterology is making recommendations regarding acute management of her Crohn's disease . She will no longer require ICU care and she will transfer to the general medicine service. Jf Wiseman MD FACS [employer] Division of Trauma, Critical Care, and Acute Care Surgery [phone] documented in this e ncounter Plan of Treatment Not on filedocumented as of this encounter Procedures + +--------+ + + + | Procedure Name | Priori | Date/Time | Associated Diagnosis | Comments | | | ty | | | | + +--------+ + + + | TRANSFUSE FRESH | Routin | 02/10/2016 | | | | FROZEN PLASMA | e | 7:54 PM | | | | | | PDT | | | + +--------+ + + + | TRANSFUSE FRESH | Routin | 02/10/2016 | | | | FROZEN PLASMA | e | 7:54 PM | | | | | | PDT | | | + +--------+ + + + | TRANSFUSE RED CELLS, | Routin | 02/10/2016 | | | | LEUKOREDUCED | e | 7:54 PM | | | | | | PDT | | | + +--------+ + + + | TRANSFUSE RED CELLS, | Routin | 02/10/2016 | | | | LEUKOREDUCED | e | 7:54 PM | | | | | | PDT | | | + +--------+ + + + | TRANSFUSE RED CELLS, | Routin | 02/10/2016 | | | | LEUKOREDUCED | e | 7:54 PM | | | | | | PDT | | | + +--------+ + + + | TRANSFUSE RED CELLS, | Routin | 02/10/2016 | | | | LEUKOREDUCED | e | 7:54 PM | | | | | | PDT | | | + +--------+ + + + | PROCEDURE NOTE | Routin | 05/16/2015 | | Results for this | | | e | 12:22 AM | | procedure are in the | | | | PST | | results section. | + +--------+ + + + | PROCEDURE NOTE | Routin | 05/16/2015 | | Results for this | | | e | 12:11 AM | | procedure are in the | | | | PST | | results section. | + +--------+ + + + | INR | Routin | 04/01/2012 | | Results for this | | | e | 5:40 AM | | procedure are in the | | | | PST | | results section. | + +--------+ + + + | CBC ONLY | Urgent | 03/31/2012 | | Results for this | | | | 3:58 AM | | procedure are in the | | | | PST | | results section. | + +--------+ + + + | INR | Routin | 03/31/2012 | | Results for this | | | e | 3:58 AM | | procedure are in the | | | | PST | | results section. | + +--------+ + + + | BASIC METABOLIC SET | Urgent | 03/31/2012 | | Results for this | | (NA, K, CL, TCO2, | | 3:58 AM | | procedure are in the | | BUN, CR, GLU, CA) | | PST | | results section. | + +--------+ + + + | CBC ONLY | Urgent | 03/31/2012 | | Results for this | | | | 3:58 AM | | procedure are in the | | | | PST | | results section. | + +--------+ + + + | MAGNESIUM, PLASMA | Routin | 03/31/2012 | | Results for this | | | e | 3:58 AM | | procedure are in the | | | | PST | | results section. | + +--------+ + + + | MRI PELVIS WO | Routin | 03/30/2012 | | Results for this | | CONTRAST | e | 6:22 PM | | procedure are in the | | | | PST | | results section. | + +--------+ + + + | MRI ABDOMEN WO | Routin | 03/30/2012 | | Results for this | | CONTRAST | e | 6:22 PM | | procedure are in the | | | | PST | | results section. | + +--------+ + + + | CBC ONLY | Routin | 03/30/2012 | | Results for this | | | e | 12:45 PM | | procedure are in the | | | | PST | | results section. | + +--------+ + + + | CBC ONLY | Routin | 03/30/2012 | | Results for this | | | e | 12:45 PM | | procedure are in the | | | | PST | | results section. | + +--------+ + + + | APTT (ACT. PART. | Urgent | 03/30/2012 | | Results for this | | THROMBO TIME) | | 12:45 PM | | procedure are in the | | | | PST | | results section. | + +--------+ + + + | APTT (ACT. PART. | Urgent | 03/30/2012 | | Results for this | | THROMBO TIME) | | 5:51 AM | | procedure are in the | | | | PST | | results section. | + +--------+ + + + | CBC ONLY | Urgent | 03/30/2012 | | Results for this | | | | 3:56 AM | | procedure are in the | | | | PST | | results section. | + +--------+ + + + | INR | Routin | 03/30/2012 | | Results for this | | | e | 3:56 AM | | procedure are in the | | | | PST | | results section. | + +--------+ + + + | BASIC METABOLIC SET | Urgent | 03/30/2012 | | Results for this | | (NA, K, CL, TCO2, | | 3:56 AM | | procedure are in the | | BUN, CR, GLU, CA) | | PST | | results section. | + +--------+ + + + | CBC ONLY | Urgent | 03/30/2012 | | Results for this | | | | 3:56 AM | | procedure are in the | | | | PST | | results section. | + +--------+ + + + | MAGNESIUM, PLASMA | Routin | 03/30/2012 | | Results for this | | | e | 3:56 AM | | procedure are in the | | | | PST | | results section. | + +--------+ + + + | APTT (ACT. PART. | Urgent | 03/29/2012 | | Results for this | | THROMBO TIME) | | 11:59 PM | | procedure are in the | | | | PST | | results section. | + +--------+ + + + | HEPATITIS B SURFACE | Urgent | 03/29/2012 | | Results for this | | AB QUAL, SERUM | | 5:17 PM | | procedure are in the | | | | PST | | results section. | + +--------+ + + + | HEPATITIS B SURFACE | Urgent | 03/29/2012 | | Results for this | | AG, SERUM | | 5:17 PM | | procedure are in the | | | | PST | | results section. | + +--------+ + + + | HEPATITIS B CORE AB, | Urgent | 03/29/2012 | | Results for this | | SERUM | | 5:17 PM | | procedure are in the | | | | PST | | results section. | + +--------+ + + + | CBC ONLY | Urgent | 03/29/2012 | | Results for this | | | | 4:42 AM | | procedure are in the | | | | PST | | results section. | + +--------+ + + + | INR | Routin | 03/29/2012 | | Results for this | | | e | 4:42 AM | | procedure are in the | | | | PST | | results section. | + +--------+ + + + | BASIC METABOLIC SET | Urgent | 03/29/2012 | | Results for this | | (NA, K, CL, TCO2, | | 4:42 AM | | procedure are in the | | BUN, CR, GLU, CA) | | PST | | results section. | + +--------+ + + + | CBC ONLY | Urgent | 03/29/2012 | | Results for this | | | | 4:42 AM | | procedure are in the | | | | PST | | results section. | + +--------+ + + + | MAGNESIUM, PLASMA | Routin | 03/29/2012 | | Results for this | | | e | 4:42 AM | | procedure are in the | | | | PST | | results section. | + +--------+ + + + | COLONOSCOPY | | 03/29/2012 | | Results for this | | | | 12:00 AM | | procedure are in the | | | | PST | | results section. | + +--------+ + + + | EGD | | 03/29/2012 | | Results for this | | | | 12:00 AM | | procedure are in the | | | | PST | | results section. | + +--------+ + + + | SURGICAL PATHOLOGY | Routin | 03/29/2012 | | Results for this | | | e | | | procedure are in the | | | | | | results section. | + +--------+ + + + | CBC ONLY | Urgent | 03/28/2012 | | Results for this | | | | 11:57 PM | | procedure are in the | | | | PST | | results section. | + +--------+ + + + | CBC ONLY | Urgent | 03/28/2012 | | Results for this | | | | 11:57 PM | | procedure are in the | | | | PST | | results section. | + +--------+ + + + | LACTATE | Urgent | 03/28/2012 | | Results for this | | | | 7:41 PM | | procedure are in the | | | | PST | | results section. | + +--------+ + + + | CT ABDOMEN AND | Routin | 03/28/2012 | | Results for this | | PELVIS W IV CONTRAST | e | 5:35 PM | | procedure are in the | | | | PST | | results section. | + +--------+ + + + | CAPILLARY BLOOD | Routin | 03/28/2012 | | Results for this | | GLUCOSE (NO CHG), | e | 4:53 PM | | procedure are in the | | POC | | PST | | results section. | + +--------+ + + + | CBC ONLY | Urgent | 03/28/2012 | | Results for this | | | | 4:48 PM | | procedure are in the | | | | PST | | results section. | + +--------+ + + + | CBC ONLY | Urgent | 03/28/2012 | | Results for this | | | | 4:48 PM | | procedure are in the | | | | PST | | results section. | + +--------+ + + + | PHOSPHORUS, PLASMA | Urgent | 03/28/2012 | | Results for this | | | | 4:48 PM | | procedure are in the | | | | PST | | results section. | + +--------+ + + + | MAGNESIUM, PLASMA | Urgent | 03/28/2012 | | Results for this | | | | 4:48 PM | | procedure are in the | | | | PST | | results section. | + +--------+ + + + | CAPILLARY BLOOD | Routin | 03/28/2012 | | Results for this | | GLUCOSE (NO CHG), | e | 11:38 AM | | procedure are in the | | POC | | PST | | results section. | + +--------+ + + + | CBC ONLY | Urgent | 03/28/2012 | | Results for this | | | | 11:30 AM | | procedure are in the | | | | PST | | results section. | + +--------+ + + + | CBC ONLY | Urgent | 03/28/2012 | | Results for this | | | | 11:30 AM | | procedure are in the | | | | PST | | results section. | + +--------+ + + + | CBC ONLY | Urgent | 03/28/2012 | | Results for this | | | | 6:44 AM | | procedure are in the | | | | PST | | results section. | + +--------+ + + + | COMPLETE METABOLIC | Urgent | 03/28/2012 | | Results for this | | SET | | 6:44 AM | | procedure are in the | | (NA,K,CL,CO2,BUN,CRE | | PST | | results section. | | AT,GLUC,CA,AST,ALT,B | | | | | | LADY TOTAL,ALK | | | | | | PHOS,ALB,PROT TOTAL) | | | | | + +--------+ + + + | BASIC METABOLIC SET | Urgent | 03/28/2012 | | Results for this | | (NA, K, CL, TCO2, | | 6:44 AM | | procedure are in the | | BUN, CR, GLU, CA) | | PST | | results section. | + +--------+ + + + | CBC ONLY | Urgent | 03/28/2012 | | Results for this | | | | 6:44 AM | | procedure are in the | | | | PST | | results section. | + +--------+ + + + | X-RAY PORTABLE CHEST | Routin | 03/28/2012 | | Results for this | | 1 VIEW | e | 6:28 AM | | procedure are in the | | | | PST | | results section. | + +--------+ + + + | PRODUCT - RED CELLS | Routin | 03/28/2012 | | Results for this | | LEUKOREDUCED | e | 4:39 AM | | procedure are in the | | | | PST | | results section. | + +--------+ + + + | PRODUCT - RED CELLS | Urgent | 03/28/2012 | | Results for this | | LEUKOREDUCED | | 4:39 AM | | procedure are in the | | | | PST | | results section. | + +--------+ + + + | RAINBOW HOLD TUBE - | Urgent | 03/28/2012 | | | | GREEN TOP | | 4:17 AM | | | | | | PST | | | + +--------+ + + + | CAPILLARY BLOOD | Routin | 03/28/2012 | | Results for this | | GLUCOSE (NO CHG), | e | 4:17 AM | | procedure are in the | | POC | | PST | | results section. | + +--------+ + + + | 12 LEAD ECG | Routin | 03/28/2012 | | Results for this | | | e | 4:08 AM | | procedure are in the | | | | PST | | results section. | + +--------+ + + + | POTASSIUM, WHOLE | Urgent | 03/28/2012 | | Results for this | | BLOOD | | 3:55 AM | | procedure are in the | | | | PST | | results section. | + +--------+ + + + | TYPE AND SCREEN | Urgent | 03/28/2012 | | Results for this | | | | 3:22 AM | | procedure are in the | | | | PST | | results section. | + +--------+ + + + | PRODUCT - FRESH | Routin | 03/28/2012 | | Results for this | | FROZEN PLASMA | e | 3:06 AM | | procedure are in the | | | | PST | | results section. | + +--------+ + + + | PRODUCT - FRESH | Routin | 03/28/2012 | | Results for this | | FROZEN PLASMA | e | 3:06 AM | | procedure are in the | | | | PST | | results section. | + +--------+ + + + | INR | Routin | 03/28/2012 | | Results for this | | | e | 1:46 AM | | procedure are in the | | | | PST | | results section. | + +--------+ + + + | BASIC METABOLIC SET | Urgent | 03/28/2012 | | Results for this | | (NA, K, CL, TCO2, | | 1:46 AM | | procedure are in the | | BUN, CR, GLU, CA) | | PST | | results section. | + +--------+ + + + | FIBRINOGEN | Urgent | 03/28/2012 | | Results for this | | | | 1:46 AM | | procedure are in the | | | | PST | | results section. | + +--------+ + + + | MAGNESIUM, PLASMA | Routin | 03/28/2012 | | Results for this | | | e | 1:46 AM | | procedure are in the | | | | PST | | results section. | + +--------+ + + + | ANTIBODY SCREEN | Urgent | 03/28/2012 | | Results for this | | | | 1:40 AM | | procedure are in the | | | | PST | | results section. | + +--------+ + + + | ABO & RH TYPE | Urgent | 03/28/2012 | | Results for this | | | | 1:40 AM | | procedure are in the | | | | PST | | results section. | + +--------+ + + + | PRODUCT - RED CELLS | Routin | 03/28/2012 | | Results for this | | LEUKOREDUCED | e | 1:37 AM | | procedure are in the | | | | PST | | results section. | + +--------+ + + + | PRODUCT - RED CELLS | Routin | 03/28/2012 | | Results for this | | LEUKOREDUCED | e | 1:37 AM | | procedure are in the | | | | PST | | results section. | + +--------+ + + + | HEMATOCRIT | Urgent | 03/28/2012 | | Results for this | | | | 12:45 AM | | procedure are in the | | | | PST | | results section. | + +--------+ + + + | CBC ONLY | Urgent | 03/27/2012 | | Results for this | | | | 5:27 AM | | procedure are in the | | | | PST | | results section. | + +--------+ + + + | INR | Routin | 03/27/2012 | | Results for this | | | e | 5:27 AM | | procedure are in the | | | | PST | | results section. | + +--------+ + + + | BASIC METABOLIC SET | Urgent | 03/27/2012 | | Results for this | | (NA, K, CL, TCO2, | | 5:27 AM | | procedure are in the | | BUN, CR, GLU, CA) | | PST | | results section. | + +--------+ + + + | CBC ONLY | Urgent | 03/27/2012 | | Results for this | | | | 5:27 AM | | procedure are in the | | | | PST | | results section. | + +--------+ + + + | MAGNESIUM, PLASMA | Routin | 03/27/2012 | | Results for this | | | e | 5:27 AM | | procedure are in the | | | | PST | | results section. | + +--------+ + + + | CBC ONLY | Urgent | 03/26/2012 | | Results for this | | | | 4:36 AM | | procedure are in the | | | | PST | | results section. | + +--------+ + + + | INR | Routin | 03/26/2012 | | Results for this | | | e | 4:36 AM | | procedure are in the | | | | PST | | results section. | + +--------+ + + + | BASIC METABOLIC SET | Urgent | 03/26/2012 | | Results for this | | (NA, K, CL, TCO2, | | 4:36 AM | | procedure are in the | | BUN, CR, GLU, CA) | | PST | | results section. | + +--------+ + + + | CBC ONLY | Urgent | 03/26/2012 | | Results for this | | | | 4:36 AM | | procedure are in the | | | | PST | | results section. | + +--------+ + + + | PHOSPHORUS, PLASMA | Routin | 03/26/2012 | | Results for this | | | e | 4:36 AM | | procedure are in the | | | | PST | | results section. | + +--------+ + + + | MAGNESIUM, PLASMA | Routin | 03/26/2012 | | Results for this | | | e | 4:36 AM | | procedure are in the | | | | PST | | results section. | + +--------+ + + + | CBC ONLY | Urgent | 03/25/2012 | | Results for this | | | | 3:13 AM | | procedure are in the | | | | PST | | results section. | + +--------+ + + + | INR | Routin | 03/25/2012 | | Results for this | | | e | 3:13 AM | | procedure are in the | | | | PST | | results section. | + +--------+ + + + | BASIC METABOLIC SET | Urgent | 03/25/2012 | | Results for this | | (NA, K, CL, TCO2, | | 3:13 AM | | procedure are in the | | BUN, CR, GLU, CA) | | PST | | results section. | + +--------+ + + + | CBC ONLY | Urgent | 03/25/2012 | | Results for this | | | | 3:13 AM | | procedure are in the | | | | PST | | results section. | + +--------+ + + + | PHOSPHORUS, PLASMA | Routin | 03/25/2012 | | Results for this | | | e | 3:13 AM | | procedure are in the | | | | PST | | results section. | + +--------+ + + + | MAGNESIUM, PLASMA | Routin | 03/25/2012 | | Results for this | | | e | 3:13 AM | | procedure are in the | | | | PST | | results section. | + +--------+ + + + | CT PELVIS W IV | Routin | 03/24/2012 | | Results for this | | CONTRAST | e | 8:56 PM | | procedure are in the | | | | PST | | results section. | + +--------+ + + + | C. DIFFICILE TOXIN, | Routin | 03/24/2012 | | Results for this | | W/REFLEX | e | 5:57 AM | | procedure are in the | | CONFIRMATION IF | | PST | | results section. | | INDETERMINATE | | | | | | RESULTS | | | | | + +--------+ + + + | CBC ONLY | Urgent | 03/24/2012 | | Results for this | | | | 5:32 AM | | procedure are in the | | | | PST | | results section. | + +--------+ + + + | INR | Routin | 03/24/2012 | | Results for this | | | e | 5:32 AM | | procedure are in the | | | | PST | | results section. | + +--------+ + + + | BASIC METABOLIC SET | Urgent | 03/24/2012 | | Results for this | | (NA, K, CL, TCO2, | | 5:32 AM | | procedure are in the | | BUN, CR, GLU, CA) | | PST | | results section. | + +--------+ + + + | CBC ONLY | Urgent | 03/24/2012 | | Results for this | | | | 5:32 AM | | procedure are in the | | | | PST | | results section. | + +--------+ + + + | MAGNESIUM, PLASMA | Routin | 03/24/2012 | | Results for this | | | e | 5:32 AM | | procedure are in the | | | | PST | | results section. | + +--------+ + + + | UA, DIPSTICK ONLY | Routin | 03/24/2012 | | Results for this | | | e | 12:39 AM | | procedure are in the | | | | PST | | results section. | + +--------+ + + + | URINE, MICROSCOPIC | Routin | 03/24/2012 | | Results for this | | EXAM | e | 12:39 AM | | procedure are in the | | | | PST | | results section. | + +--------+ + + + | URINE SCREEN FOR | Routin | 03/24/2012 | | Results for this | | CULTURE | e | 12:39 AM | | procedure are in the | | | | PST | | results section. | + +--------+ + + + | CULTURE, URINE BACTI | Routin | 03/24/2012 | | Results for this | | | e | 12:39 AM | | procedure are in the | | | | PST | | results section. | + +--------+ + + + | CULTURE, BLOOD BACTI | Routin | 03/23/2012 | | Results for this | | & YEAST [facility] | e | 11:22 PM | | procedure are in the | | | | PST | | results section. | + +--------+ + + + | CULTURE, BLOOD BACTI | Routin | 03/23/2012 | | Results for this | | & YEAST | e | 11:22 PM | | procedure are in the | | | | PST | | results section. | + +--------+ + + + | 12 LEAD ECG | Routin | 03/23/2012 | | Results for this | | | e | 4:00 PM | | procedure are in the | | | | PST | | results section. | + +--------+ + + + | VASC LAB PORTABLE | Routin | 03/23/2012 | | Results for this | | CAROTID DUPLEX RIGHT | e | 10:04 AM | | procedure are in the | | | | PST | | results section. | + +--------+ + + + | CBC ONLY | Urgent | 03/23/2012 | | Results for this | | | | 7:36 AM | | procedure are in the | | | | PST | | results section. | + +--------+ + + + | INR | Routin | 03/23/2012 | | Results for this | | | e | 7:36 AM | | procedure are in the | | | | PST | | results section. | + +--------+ + + + | BASIC METABOLIC SET | Urgent | 03/23/2012 | | Results for this | | (NA, K, CL, TCO2, | | 7:36 AM | | procedure are in the | | BUN, CR, GLU, CA) | | PST | | results section. | + +--------+ + + + | CBC ONLY | Urgent | 03/23/2012 | | Results for this | | | | 7:36 AM | | procedure are in the | | | | PST | | results section. | + +--------+ + + + | MAGNESIUM, PLASMA | Routin | 03/23/2012 | | Results for this | | | e | 7:36 AM | | procedure are in the | | | | PST | | results section. | + +--------+ + + + | LEGIONELLA AG, URINE | Routin | 03/23/2012 | | Results for this | | | e | 12:59 AM | | procedure are in the | | | | PST | | results section. | + +--------+ + + + | VANCOMYCIN, TROUGH | Routin | 03/23/2012 | | Results for this | | | e | 12:19 AM | | procedure are in the | | | | PST | | results section. | + +--------+ + + + | X-RAY CHEST 2 VIEW | Urgent | 03/22/2012 | | Results for this | | | | 7:22 PM | | procedure are in the | | | | PST | | results section. | + +--------+ + + + | CULTURE, BLOOD BACTI | Routin | 03/22/2012 | | Results for this | | & YEAST [facility] | e | 7:09 PM | | procedure are in the | | | | PST | | results section. | + +--------+ + + + | CULTURE, BLOOD BACTI | Routin | 03/22/2012 | | Results for this | | & YEAST | e | 7:09 PM | | procedure are in the | | | | PST | | results section. | + +--------+ + + + | CULTURE, BLOOD BACTI | Routin | 03/22/2012 | | Results for this | | & YEAST [facility] | e | 7:08 PM | | procedure are in the | | | | PST | | results section. | + +--------+ + + + | CULTURE, BLOOD BACTI | Routin | 03/22/2012 | | Results for this | | & YEAST | e | 7:08 PM | | procedure are in the | | | | PST | | results section. | + +--------+ + + + | 12 LEAD ECG | Routin | 03/22/2012 | | Results for this | | | e | 2:58 PM | | procedure are in the | | | | PST | | results section. | + +--------+ + + + | CAPILLARY BLOOD | Routin | 03/22/2012 | | Results for this | | GLUCOSE (NO CHG), | e | 10:25 AM | | procedure are in the | | POC | | PST | | results section. | + +--------+ + + + | CAPILLARY BLOOD | Routin | 03/22/2012 | | Results for this | | GLUCOSE (NO CHG), | e | 7:03 AM | | procedure are in the | | POC | | PST | | results section. | + +--------+ + + + | CBC ONLY | Urgent | 03/22/2012 | | Results for this | | | | 6:25 AM | | procedure are in the | | | | PST | | results section. | + +--------+ + + + | INR | Routin | 03/22/2012 | | Results for this | | | e | 6:25 AM | | procedure are in the | | | | PST | | results section. | + +--------+ + + + | POTASSIUM, PLASMA | Routin | 03/22/2012 | | Results for this | | | e | 6:25 AM | | procedure are in the | | | | PST | | results section. | + +--------+ + + + | BASIC METABOLIC SET | Urgent | 03/22/2012 | | Results for this | | (NA, K, CL, TCO2, | | 6:25 AM | | procedure are in the | | BUN, CR, GLU, CA) | | PST | | results section. | + +--------+ + + + | CBC ONLY | Urgent | 03/22/2012 | | Results for this | | | | 6:25 AM | | procedure are in the | | | | PST | | results section. | + +--------+ + + + | MAGNESIUM, PLASMA | Routin | 03/22/2012 | | Results for this | | | e | 6:25 AM | | procedure are in the | | | | PST | | results section. | + +--------+ + + + | CAPILLARY BLOOD | Routin | 03/22/2012 | | Results for this | | GLUCOSE (NO CHG), | e | 12:46 AM | | procedure are in the | | POC | | PST | | results section. | + +--------+ + + + | POTASSIUM, PLASMA | Routin | 03/21/2012 | | Results for this | | | e | 10:50 PM | | procedure are in the | | | | PST | | results section. | + +--------+ + + + | CAPILLARY BLOOD | Routin | 03/21/2012 | | Results for this | | GLUCOSE (NO CHG), | e | 6:17 PM | | procedure are in the | | POC | | PST | | results section. | + +--------+ + + + | 12 LEAD ECG | Routin | 03/21/2012 | | Results for this | | | e | 3:08 PM | | procedure are in the | | | | PST | | results section. | + +--------+ + + + | CAPILLARY BLOOD | Routin | 03/21/2012 | | Results for this | | GLUCOSE (NO CHG), | e | 9:58 AM | | procedure are in the | | POC | | PST | | results section. | + +--------+ + + + | VASC LAB ANKLE BRACH | Routin | 03/21/2012 | | Results for this | | INDICS W WAVEFORM | e | 8:17 AM | | procedure are in the | | BILAT | | PST | | results section. | + +--------+ + + + | CBC ONLY | Urgent | 03/21/2012 | | Results for this | | | | 4:12 AM | | procedure are in the | | | | PST | | results section. | + +--------+ + + + | HEPARIN, EITHER | Routin | 03/21/2012 | | Results for this | | STANDARD / LMW, | e | 4:12 AM | | procedure are in the | | BLOOD | | PST | | results section. | + +--------+ + + + | INR | Routin | 03/21/2012 | | Results for this | | | e | 4:12 AM | | procedure are in the | | | | PST | | results section. | + +--------+ + + + | BASIC METABOLIC SET | Urgent | 03/21/2012 | | Results for this | | (NA, K, CL, TCO2, | | 4:12 AM | | procedure are in the | | BUN, CR, GLU, CA) | | PST | | results section. | + +--------+ + + + | CBC ONLY | Urgent | 03/21/2012 | | Results for this | | | | 4:12 AM | | procedure are in the | | | | PST | | results section. | + +--------+ + + + | MAGNESIUM, PLASMA | Routin | 03/21/2012 | | Results for this | | | e | 4:12 AM | | procedure are in the | | | | PST | | results section. | + +--------+ + + + | 12 LEAD ECG | Urgent | 03/21/2012 | | Results for this | | | | 1:28 AM | | procedure are in the | | | | PST | | results section. | + +--------+ + + + | X-RAY CHEST 2 VIEW | Routin | 03/20/2012 | | Results for this | | | e | 9:45 PM | | procedure are in the | | | | PST | | results section. | + +--------+ + + + | BASIC METABOLIC SET | Routin | 03/20/2012 | | Results for this | | (NA, K, CL, TCO2, | e | 8:21 PM | | procedure are in the | | BUN, CR, GLU, CA) | | PST | | results section. | + +--------+ + + + | MAGNESIUM, PLASMA | Routin | 03/20/2012 | | Results for this | | | e | 8:21 PM | | procedure are in the | | | | PST | | results section. | + +--------+ + + + | CAPILLARY BLOOD | Routin | 03/20/2012 | | Results for this | | GLUCOSE (NO CHG), | e | 5:36 PM | | procedure are in the | | POC | | PST | | results section. | + +--------+ + + + | 12 LEAD ECG | Routin | 03/20/2012 | | Results for this | | | e | 3:48 PM | | procedure are in the | | | | PST | | results section. | + +--------+ + + + | CAPILLARY BLOOD | Routin | 03/20/2012 | | Results for this | | GLUCOSE (NO CHG), | e | 1:12 PM | | procedure are in the | | POC | | PST | | results section. | + +--------+ + + + | CAPILLARY BLOOD | Routin | 03/20/2012 | | Results for this | | GLUCOSE (NO CHG), | e | 10:24 AM | | procedure are in the | | POC | | PST | | results section. | + +--------+ + + + | X-RAY PORTABLE CHEST | Urgent | 03/20/2012 | | Results for this | | 1 VIEW | | 10:13 AM | | procedure are in the | | | | PST | | results section. | + +--------+ + + + | CBC ONLY | Urgent | 03/20/2012 | | Results for this | | | | 7:00 AM | | procedure are in the | | | | PST | | results section. | + +--------+ + + + | HEPARIN, EITHER | Routin | 03/20/2012 | | Results for this | | STANDARD / LMW, | e | 7:00 AM | | procedure are in the | | BLOOD | | PST | | results section. | + +--------+ + + + | INR | Routin | 03/20/2012 | | Results for this | | | e | 7:00 AM | | procedure are in the | | | | PST | | results section. | + +--------+ + + + | BASIC METABOLIC SET | Urgent | 03/20/2012 | | Results for this | | (NA, K, CL, TCO2, | | 7:00 AM | | procedure are in the | | BUN, CR, GLU, CA) | | PST | | results section. | + +--------+ + + + | CBC ONLY | Urgent | 03/20/2012 | | Results for this | | | | 7:00 AM | | procedure are in the | | | | PST | | results section. | + +--------+ + + + | CAPILLARY BLOOD | Routin | 03/20/2012 | | Results for this | | GLUCOSE (NO CHG), | e | 6:08 AM | | procedure are in the | | POC | | PST | | results section. | + +--------+ + + + | CAPILLARY BLOOD | Routin | 03/19/2012 | | Results for this | | GLUCOSE (NO CHG), | e | 11:52 PM | | procedure are in the | | POC | | PST | | results section. | + +--------+ + + + | CULTURE, BLOOD BACTI | Routin | 03/19/2012 | | Results for this | | & YEAST [facility] | e | 6:50 PM | | procedure are in the | | | | PST | | results section. | + +--------+ + + + | CULTURE, BLOOD BACTI | Routin | 03/19/2012 | | Results for this | | & YEAST | e | 6:50 PM | | procedure are in the | | | | PST | | results section. | + +--------+ + + + | CULTURE, BLOOD BACTI | Routin | 03/19/2012 | | Results for this | | & YEAST [facility] | e | 6:48 PM | | procedure are in the | | | | PST | | results section. | + +--------+ + + + | CULTURE, BLOOD BACTI | Routin | 03/19/2012 | | Results for this | | & YEAST | e | 6:48 PM | | procedure are in the | | | | PST | | results section. | + +--------+ + + + | CAPILLARY BLOOD | Routin | 03/19/2012 | | Results for this | | GLUCOSE (NO CHG), | e | 4:47 PM | | procedure are in the | | POC | | PST | | results section. | + +--------+ + + + | 12 LEAD ECG | Routin | 03/19/2012 | | Results for this | | | e | 2:15 PM | | procedure are in the | | | | PST | | results section. | + +--------+ + + + | CAPILLARY BLOOD | Routin | 03/19/2012 | | Results for this | | GLUCOSE (NO CHG), | e | 1:05 PM | | procedure are in the | | POC | | PST | | results section. | + +--------+ + + + | X-RAY CHEST 2 VIEW | Routin | 03/19/2012 | | Results for this | | | e | 11:36 AM | | procedure are in the | | | | PST | | results section. | + +--------+ + + + | CAPILLARY BLOOD | Routin | 03/19/2012 | | Results for this | | GLUCOSE (NO CHG), | e | 7:12 AM | | procedure are in the | | POC | | PST | | results section. | + +--------+ + + + | HEPARIN, EITHER | Routin | 03/19/2012 | | Results for this | | STANDARD / LMW, | e | 6:40 AM | | procedure are in the | | BLOOD | | PST | | results section. | + +--------+ + + + | INR | Routin | 03/19/2012 | | Results for this | | | e | 6:40 AM | | procedure are in the | | | | PST | | results section. | + +--------+ + + + | CBC ONLY | Urgent | 03/19/2012 | | Results for this | | | | 6:39 AM | | procedure are in the | | | | PST | | results section. | + +--------+ + + + | BASIC METABOLIC SET | Urgent | 03/19/2012 | | Results for this | | (NA, K, CL, TCO2, | | 6:39 AM | | procedure are in the | | BUN, CR, GLU, CA) | | PST | | results section. | + +--------+ + + + | CBC ONLY | Urgent | 03/19/2012 | | Results for this | | | | 6:39 AM | | procedure are in the | | | | PST | | results section. | + +--------+ + + + | UALOUISESTICK ONLY | Routin | 03/19/2012 | | Results for this | | | e | 1:24 AM | | procedure are in the | | | | PST | | results section. | + +--------+ + + + | URINE, MICROSCOPIC | Routin | 03/19/2012 | | Results for this | | EXAM | e | 1:24 AM | | procedure are in the | | | | PST | | results section. | + +--------+ + + + | URINE SCREEN FOR | Routin | 03/19/2012 | | Results for this | | CULTURE | e | 1:24 AM | | procedure are in the | | | | PST | | results section. | + +--------+ + + + | CULTURE, URINE BACTI | Routin | 03/19/2012 | | Results for this | | | e | 1:24 AM | | procedure are in the | | | | PST | | results section. | + +--------+ + + + | CULTURE, BLOOD BACTI | Routin | 03/19/2012 | | Results for this | | & YEAST [facility] | e | 1:10 AM | | procedure are in the | | | | PST | | results section. | + +--------+ + + + | CULTURE, BLOOD BACTI | Routin | 03/19/2012 | | Results for this | | & YEAST [facility] | e | 1:10 AM | | procedure are in the | | | | PST | | results section. | + +--------+ + + + | CULTURE, BLOOD BACTI | Routin | 03/19/2012 | | Results for this | | & YEAST | e | 1:10 AM | | procedure are in the | | | | PST | | results section. | + +--------+ + + + | CULTURE, BLOOD BACTI | Routin | 03/19/2012 | | Results for this | | & YEAST | e | 1:10 AM | | procedure are in the | | | | PST | | results section. | + +--------+ + + + | CAPILLARY BLOOD | Routin | 03/18/2012 | | Results for this | | GLUCOSE (NO CHG), | e | 11:54 PM | | procedure are in the | | POC | | PST | | results section. | + +--------+ + + + | HEPARIN, EITHER | Routin | 03/18/2012 | | Results for this | | STANDARD / LMW, | e | 11:22 PM | | procedure are in the | | BLOOD | | PST | | results section. | + +--------+ + + + | CAPILLARY BLOOD | Routin | 03/18/2012 | | Results for this | | GLUCOSE (NO CHG), | e | 6:26 PM | | procedure are in the | | POC | | PST | | results section. | + +--------+ + + + | CBC AND AUTO DIFF | Routin | 03/18/2012 | | Results for this | | | e | 2:58 PM | | procedure are in the | | | | PST | | results section. | + +--------+ + + + | MANUAL DIFFERENTIAL | Routin | 03/18/2012 | | Results for this | | | e | 2:58 PM | | procedure are in the | | | | PST | | results section. | + +--------+ + + + | CBC, WITH | Routin | 03/18/2012 | | Results for this | | DIFFERENTIAL | e | 2:58 PM | | procedure are in the | | | | PST | | results section. | + +--------+ + + + | CAPILLARY BLOOD | Routin | 03/18/2012 | | Results for this | | GLUCOSE (NO CHG), | e | 12:37 PM | | procedure are in the | | POC | | PST | | results section. | + +--------+ + + + | OPERATION RECORD | | 03/18/2012 | | Results for this | | | | 11:22 AM | | procedure are in the | | | | PST | | results section. | + +--------+ + + + | HEPARIN, EITHER | Routin | 03/18/2012 | | Results for this | | STANDARD / LMW, | e | 10:26 AM | | procedure are in the | | BLOOD | | PST | | results section. | + +--------+ + + + | CBC ONLY | Urgent | 03/18/2012 | | Results for this | | | | 8:10 AM | | procedure are in the | | | | PST | | results section. | + +--------+ + + + | HEPARIN, EITHER | Routin | 03/18/2012 | | Results for this | | STANDARD / LMW, | e | 8:10 AM | | procedure are in the | | BLOOD | | PST | | results section. | + +--------+ + + + | INR | Routin | 03/18/2012 | | Results for this | | | e | 8:10 AM | | procedure are in the | | | | PST | | results section. | + +--------+ + + + | BASIC METABOLIC SET | Urgent | 03/18/2012 | | Results for this | | (NA, K, CL, TCO2, | | 8:10 AM | | procedure are in the | | BUN, CR, GLU, CA) | | PST | | results section. | + +--------+ + + + | CBC ONLY | Urgent | 03/18/2012 | | Results for this | | | | 8:10 AM | | procedure are in the | | | | PST | | results section. | + +--------+ + + + | LDH TOTAL, PLASMA | Routin | 03/18/2012 | | Results for this | | | e | 8:10 AM | | procedure are in the | | | | PST | | results section. | + +--------+ + + + | BILIRUBIN TOTAL | Routin | 03/18/2012 | | Results for this | | | e | 8:10 AM | | procedure are in the | | | | PST | | results section. | + +--------+ + + + | CAPILLARY BLOOD | Routin | 03/18/2012 | | Results for this | | GLUCOSE (NO CHG), | e | 6:34 AM | | procedure are in the | | POC | | PST | | results section. | + +--------+ + + + | CAPILLARY BLOOD | Routin | 03/17/2012 | | Results for this | | GLUCOSE (NO CHG), | e | 11:01 PM | | procedure are in the | | POC | | PST | | results section. | + +--------+ + + + | CAPILLARY BLOOD | Routin | 03/17/2012 | | Results for this | | GLUCOSE (NO CHG), | e | 5:29 PM | | procedure are in the | | POC | | PST | | results section. 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 | + +--------+ + + + | HEPARIN, EITHER | Routin | 03/17/2012 | | Results for this | | STANDARD / LMW, | e | 6:55 AM | | procedure are in the | | BLOOD | | PST | | results section. | + +--------+ + + + | INR | Routin | 03/17/2012 | | Results for this | | | e | 6:55 AM | | procedure are in the | | | | PST | | results section. | + +--------+ + + + | BASIC METABOLIC SET | Urgent | 03/17/2012 | | Results for this | | (NA, K, CL, TCO2, | | 6:55 AM | | procedure are in the | | BUN, CR, GLU, CA) | | PST | | results section. | + +--------+ + + + | CBC ONLY | Urgent | 03/17/2012 | | Results for this | | | | 6:55 AM | | procedure are in the | | | | PST | | results section. | + +--------+ + + + | CAPILLARY BLOOD | Routin | 03/17/2012 | | Results for this | | GLUCOSE (NO CHG), | e | 1:01 AM | | procedure are in the | | POC | | PST | | results section. | + +--------+ + + + | HEPARIN, EITHER | Routin | 03/16/2012 | | Results for this | | STANDARD / LMW, | e | 8:48 PM | | procedure are in the | | BLOOD | | PST | | results section. | + +--------+ + + + | ANTIBODY SCREEN | Routin | 03/16/2012 | | Results for this | | | e | 8:48 PM | | procedure are in the | | | | PST | | results section. | + +--------+ + + + | TYPE AND SCREEN | Routin | 03/16/2012 | | Results for this | | | e | 8:48 PM | | procedure are in the | | | | PST | | results section. | + +--------+ + + + | ABO & RH TYPE | Routin | 03/16/2012 | | Results for this | | | e | 8:48 PM | | procedure are in the | | | | PST | | results section. | + +--------+ + + + | CAPILLARY BLOOD | Routin | 03/16/2012 | | Results for this | | GLUCOSE (NO CHG), | e | 6:34 PM | | procedure are in the | | POC | | PST | | results section. | + +--------+ + + + | VASC LAB VENOUS | Routin | 03/16/2012 | | Results for this | | DUPLEX LOWER | e | 6:09 PM | | procedure are in the | | EXTREMITY BILAT COMP | | PST | | results section. | + +--------+ + + + | VASC LAB VEIN | Routin | 03/16/2012 | | Results for this | | MAPPING LOWER | e | 6:09 PM | | procedure are in the | | EXTREMITY BILAT | | PST | | results section. | + +--------+ + + + | CAPILLARY BLOOD | Routin | 03/16/2012 | | Results for this | | GLUCOSE (NO CHG), | e | 4:25 PM | | procedure are in the | | POC | | PST | | results section. | + +--------+ + + + | CAPILLARY BLOOD | Routin | 03/16/2012 | | Results for this | | GLUCOSE (NO CHG), | e | 1:56 PM | | procedure are in the | | POC | | PST | | results section. | + +--------+ + + + | HEPARIN, EITHER | Routin | 03/16/2012 | | Results for this | | STANDARD / LMW, | e | 12:33 PM | | procedure are in the | | BLOOD | | PST | | results section. | + +--------+ + + + | CAPILLARY BLOOD | Routin | 03/16/2012 | | Results for this | | GLUCOSE (NO CHG), | e | 7:34 AM | | procedure are in the | | POC | | PST | | results section. | + +--------+ + + + | CBC ONLY | Urgent | 03/16/2012 | | Results for this | | | | 6:54 AM | | procedure are in the | | | | PST | | results section. | + +--------+ + + + | HEPARIN, EITHER | Urgent | 03/16/2012 | | Results for this | | STANDARD / LMW, | | 6:54 AM | | procedure are in the | | BLOOD | | PST | | results section. | + +--------+ + + + | INR | Routin | 03/16/2012 | | Results for this | | | e | 6:54 AM | | procedure are in the | | | | PST | | results section. | + +--------+ + + + | BASIC METABOLIC SET | Urgent | 03/16/2012 | | Results for this | | (NA, K, CL, TCO2, | | 6:54 AM | | procedure are in the | | BUN, CR, GLU, CA) | | PST | | results section. | + +--------+ + + + | CBC ONLY | Urgent | 03/16/2012 | | Results for this | | | | 6:54 AM | | procedure are in the | | | | PST | | results section. | + +--------+ + + + | CAPILLARY BLOOD | Routin | 03/15/2012 | | Results for this | | GLUCOSE (NO CHG), | e | 10:30 PM | | procedure are in the | | POC | | PST | | results section. | + +--------+ + + + | CAPILLARY BLOOD | Routin | 03/15/2012 | | Results for this | | GLUCOSE (NO CHG), | e | 7:55 PM | | procedure are in the | | POC | | PST | | results section. | + +--------+ + + + | CTA ABDOMEN RUN OFF | Routin | 03/15/2012 | | Results for this | | WWO IV CONTRAST | e | 2:13 PM | | procedure are in the | | | | PST | | results section. | + +--------+ + + + | VASC LAB ARTER | Routin | 03/15/2012 | | Results for this | | DUPLEX LOWER | e | 12:54 PM | | procedure are in the | | EXTREMITY BILATERAL | | PST | | results section. | | COMPLETE | | | | | + +--------+ + + + | CAPILLARY BLOOD | Routin | 03/15/2012 | | Results for this | | GLUCOSE (NO CHG), | e | 12:42 PM | | procedure are in the | | POC | | PST | | results section. | + +--------+ + + + | CAPILLARY BLOOD | Routin | 03/15/2012 | | Results for this | | GLUCOSE (NO CHG), | e | 7:05 AM | | procedure are in the | | POC | | PST | | results section. | + +--------+ + + + | HEPARIN, EITHER | Routin | 03/15/2012 | | Results for this | | STANDARD / LMW, | e | 4:50 AM | | procedure are in the | | BLOOD | | PST | | results section. | + +--------+ + + + | LUPUS INHIBITOR | Routin | 03/15/2012 | | Results for this | | EVALUATION WITH | e | 4:50 AM | | procedure are in the | | REFLEXES | | PST | | results section. | + +--------+ + + + | ANTICARDIOLIPIN | Routin | 03/15/2012 | | Results for this | | IGG/M | e | 4:50 AM | | procedure are in the | | | | PST | | results section. | + +--------+ + + + | ANTI-B2 GLYCOPROTEIN | Routin | 03/15/2012 | | Results for this | | 1 GM | e | 4:50 AM | | procedure are in the | | | | PST | | results section. | + +--------+ + + + | CBC ONLY | Urgent | 03/15/2012 | | Results for this | | | | 4:03 AM | | procedure are in the | | | | PST | | results section. | + +--------+ + + + | HEPARIN, EITHER | Urgent | 03/15/2012 | | Results for this | | STANDARD / LMW, | | 4:03 AM | | procedure are in the | | BLOOD | | PST | | results section. | + +--------+ + + + | BASIC METABOLIC SET | Urgent | 03/15/2012 | | Results for this | | (NA, K, CL, TCO2, | | 4:03 AM | | procedure are in the | | BUN, CR, GLU, CA) | | PST | | results section. | + +--------+ + + + | CBC ONLY | Urgent | 03/15/2012 | | Results for this | | | | 4:03 AM | | procedure are in the | | | | PST | | results section. | + +--------+ + + + | PHOSPHORUS, PLASMA | Routin | 03/15/2012 | | Results for this | | | e | 4:03 AM | | procedure are in the | | | | PST | | results section. | + +--------+ + + + | TRANSTHORACIC | Routin | 03/15/2012 | | Results for this | | ECHOCARDIOGRAM, | e | 12:00 AM | | procedure are in the | | ADULT | | PST | | results section. | + +--------+ + + + | CAPILLARY BLOOD | Routin | 03/14/2012 | | Results for this | | GLUCOSE (NO CHG), | e | 11:56 PM | | procedure are in the | | POC | | PST | | results section. | + +--------+ + + + | CBC ONLY | Routin | 03/14/2012 | | Results for this | | | e | 9:05 PM | | procedure are in the | | | | PST | | results section. | + +--------+ + + + | CBC ONLY | Routin | 03/14/2012 | | Results for this | | | e | 9:05 PM | | procedure are in the | | | | PST | | results section. | + +--------+ + + + | CAPILLARY BLOOD | Routin | 03/14/2012 | | Results for this | | GLUCOSE (NO CHG), | e | 7:36 PM | | procedure are in the | | POC | | PST | | results section. | + +--------+ + + + | CAPILLARY BLOOD | Routin | 03/14/2012 | | Results for this | | GLUCOSE (NO CHG), | e | 6:58 PM | | procedure are in the | | POC | | PST | | results section. | + +--------+ + + + | VASC LAB CAROTID | Routin | 03/14/2012 | | Results for this | | DUPLEX COMPLETE | e | 1:47 PM | | procedure are in the | | BILATERAL | | PST | | results section. | + +--------+ + + + | CAPILLARY BLOOD | Routin | 03/14/2012 | | Results for this | | GLUCOSE (NO CHG), | e | 1:03 PM | | procedure are in the | | POC | | PST | | results section. | + +--------+ + + + | PRODUCT - RED CELLS | Routin | 03/14/2012 | | Results for this | | LEUKOREDUCED | e | 12:17 PM | | procedure are in the | | | | PST | | results section. | + +--------+ + + + | PRODUCT - RED CELLS | Routin | 03/14/2012 | | Results for this | | LEUKOREDUCED | e | 12:17 PM | | procedure are in the | | | | PST | | results section. | + +--------+ + + + | CBC ONLY | Urgent | 03/14/2012 | | Results for this | | | | 11:50 AM | | procedure are in the | | | | PST | | results section. | + +--------+ + + + | CBC ONLY | Urgent | 03/14/2012 | | Results for this | | | | 11:50 AM | | procedure are in the | | | | PST | | results section. | + +--------+ + + + | CAPILLARY BLOOD | Routin | 03/14/2012 | | Results for this | | GLUCOSE (NO CHG), | e | 9:39 AM | | procedure are in the | | POC | | PST | | results section. | + +--------+ + + + | CAPILLARY BLOOD | Routin | 03/14/2012 | | Results for this | | GLUCOSE (NO CHG), | e | 6:10 AM | | procedure are in the | | POC | | PST | | results section. | + +--------+ + + + | RETICULOCYTE COUNT | Routin | 03/14/2012 | | Results for this | | | e | 5:25 AM | | procedure are in the | | | | PST | | results section. | + +--------+ + + + | CBC ONLY | Urgent | 03/14/2012 | | Results for this | | | | 5:25 AM | | procedure are in the | | | | PST | | results section. | + +--------+ + + + | HEPARIN, EITHER | Urgent | 03/14/2012 | | Results for this | | STANDARD / LMW, | | 5:25 AM | | procedure are in the | | BLOOD | | PST | | results section. | + +--------+ + + + | BASIC METABOLIC SET | Urgent | 03/14/2012 | | Results for this | | (NA, K, CL, TCO2, | | 5:25 AM | | procedure are in the | | BUN, CR, GLU, CA) | | PST | | results section. | + +--------+ + + + | C-REACTIVE PROTEIN | Routin | 03/14/2012 | | Results for this | | | e | 5:25 AM | | procedure are in the | | | | PST | | results section. | + +--------+ + + + | CBC ONLY | Urgent | 03/14/2012 | | Results for this | | | | 5:25 AM | | procedure are in the | | | | PST | | results section. | + +--------+ + + + | RETICULOCYTE COUNT, | Routin | 03/14/2012 | | Results for this | | BLOOD | e | 5:25 AM | | procedure are in the | | | | PST | | results section. | + +--------+ + + + | FERRITIN | Routin | 03/14/2012 | | Results for this | | | e | 5:25 AM | | procedure are in the | | | | PST | | results section. | + +--------+ + + + | VITAMIN B-12 | Routin | 03/14/2012 | | Results for this | | | e | 5:25 AM | | procedure are in the | | | | PST | | results section. | + +--------+ + + + | IRON AND TIBC, SERUM | Routin | 03/14/2012 | | Results for this | | | e | 5:25 AM | | procedure are in the | | | | PST | | results section. | + +--------+ + + + | CAPILLARY BLOOD | Routin | 03/13/2012 | | Results for this | | GLUCOSE (NO CHG), | e | 11:03 PM | | procedure are in the | | POC | | PST | | results section. | + +--------+ + + + | HEPARIN, EITHER | Urgent | 03/13/2012 | | Results for this | | STANDARD / LMW, | | 7:01 PM | | procedure are in the | | BLOOD | | PST | | results section. | + +--------+ + + + | LACTATE | Urgent | 03/13/2012 | | Results for this | | | | 7:00 PM | | procedure are in the | | | | PST | | results section. | + +--------+ + + + | CAPILLARY BLOOD | Routin | 03/13/2012 | | Results for this | | GLUCOSE (NO CHG), | e | 6:14 PM | | procedure are in the | | POC | | PST | | results section. | + +--------+ + + + | HEPARIN, EITHER | Urgent | 03/13/2012 | | Results for this | | STANDARD / LMW, | | 1:42 PM | | procedure are in the | | BLOOD | | PST | | results section. | + +--------+ + + + | VASC LAB ABDOMINAL | Routin | 03/13/2012 | | Results for this | | DUPLEX COMP ARTERY | e | 1:41 PM | | procedure are in the | | VEIN | | PST | | results section. | + +--------+ + + + | VASC LAB ARTER | Routin | 03/13/2012 | | Results for this | | DUPLEX LOWER | e | 1:41 PM | | procedure are in the | | EXTREMITY BILATERAL | | PST | | results section. | | COMPLETE | | | | | + +--------+ + + + | CAPILLARY BLOOD | Routin | 03/13/2012 | | Results for this | | GLUCOSE (NO CHG), | e | 12:11 PM | | procedure are in the | | POC | | PST | | results section. | + +--------+ + + + | LDH ISOENZYMES, | Urgent | 03/13/2012 | | Results for this | | SERUM | | 12:03 PM | | procedure are in the | | | | PST | | results section. | + +--------+ + + + | HEPARIN, EITHER | Urgent | 03/13/2012 | | Results for this | | STANDARD / LMW, | | 11:17 AM | | procedure are in the | | BLOOD | | PST | | results section. | + +--------+ + + + | APTT (ACT. PART. | Urgent | 03/13/2012 | | Results for this | | THROMBO TIME) | | 11:17 AM | | procedure are in the | | | | PST | | results section. | + +--------+ + + + | HEPARIN, EITHER | Urgent | 03/13/2012 | | Results for this | | STANDARD / LMW, | | 8:02 AM | | procedure are in the | | BLOOD | | PST | | results section. | + +--------+ + + + | CAPILLARY BLOOD | Routin | 03/13/2012 | | Results for this | | GLUCOSE (NO CHG), | e | 8:02 AM | | procedure are in the | | POC | | PST | | results section. | + +--------+ + + + | CK, PLASMA | Urgent | 03/13/2012 | | Results for this | | | | 6:50 AM | | procedure are in the | | | | PST | | results section. | + +--------+ + + + | CAPILLARY BLOOD | Routin | 03/13/2012 | | Results for this | | GLUCOSE (NO CHG), | e | 5:41 AM | | procedure are in the | | POC | | PST | | results section. | + +--------+ + + + | APTT (ACT. PART. | Urgent | 03/13/2012 | | Results for this | | THROMBO TIME) | | 4:19 AM | | procedure are in the | | | | PST | | results section. | + +--------+ + + + | CBC ONLY | Urgent | 03/13/2012 | | Results for this | | | | 3:42 AM | | procedure are in the | | | | PST | | results section. | + +--------+ + + + | BASIC METABOLIC SET | Urgent | 03/13/2012 | | Results for this | | (NA, K, CL, TCO2, | | 3:42 AM | | procedure are in the | | BUN, CR, GLU, CA) | | PST | | results section. | + +--------+ + + + | CBC ONLY | Urgent | 03/13/2012 | | Results for this | | | | 3:42 AM | | procedure are in the | | | | PST | | results section. | + +--------+ + + + | APTT (ACT. PART. | Urgent | 03/13/2012 | | Results for this | | THROMBO TIME) | | 3:42 AM | | procedure are in the | | | | PST | | results section. | + +--------+ + + + | PHOSPHORUS, PLASMA | Urgent | 03/13/2012 | | Results for this | | | | 3:42 AM | | procedure are in the | | | | PST | | results section. | + +--------+ + + + | MAGNESIUM, PLASMA | Urgent | 03/13/2012 | | Results for this | | | | 3:42 AM | | procedure are in the | | | | PST | | results section. | + +--------+ + + + | CULTURE, URINE BACTI | Urgent | 03/13/2012 | | Results for this | | | | 1:03 AM | | procedure are in the | | | | PST | | results section. | + +--------+ + + + | C. DIFFICILE TOXIN, | Urgent | 03/13/2012 | | Results for this | | W/REFLEX | | 12:01 AM | | procedure are in the | | CONFIRMATION IF | | PST | | results section. | | INDETERMINATE | | | | | | RESULTS | | | | | + +--------+ + + + | CULTURE, STOOL BACTI | Urgent | 03/13/2012 | | Results for this | | | | 12:01 AM | | procedure are in the | | | | PST | | results section. | + +--------+ + + + | CAPILLARY BLOOD | Routin | 03/12/2012 | | Results for this | | GLUCOSE (NO CHG), | e | 11:06 PM | | procedure are in the | | POC | | PST | | results section. | + +--------+ + + + | 12 LEAD ECG | Routin | 03/12/2012 | | Results for this | | | e | 10:30 PM | | procedure are in the | | | | PST | | results section. | + +--------+ + + + | X-RAY PORTABLE CHEST | Urgent | 03/12/2012 | | Results for this | | 1 VIEW | | 10:29 PM | | procedure are in the | | | | PST | | results section. | + +--------+ + + + | CULTURE, BLOOD BACTI | Urgent | 03/12/2012 | | Results for this | | & YEAST [facility] | | 9:57 PM | | procedure are in the | | | | PST | | results section. | + +--------+ + + + | CULTURE, BLOOD BACTI | Urgent | 03/12/2012 | | Results for this | | & YEAST | | 9:57 PM | | procedure are in the | | | | PST | | results section. | + +--------+ + + + | CULTURE, BLOOD BACTI | Urgent | 03/12/2012 | | Results for this | | & YEAST [facility] | | 9:50 PM | | procedure are in the | | | | PST | | results section. | + +--------+ + + + | CULTURE, BLOOD BACTI | Urgent | 03/12/2012 | | Results for this | | & YEAST | | 9:50 PM | | procedure are in the | | | | PST | | results section. | + +--------+ + + + | TYPE AND SCREEN | Urgent | 03/12/2012 | | Results for this | | | | 8:32 PM | | procedure are in the | | | | PST | | results section. | + +--------+ + + + | COMPLETE METABOLIC | Urgent | 03/12/2012 | | Results for this | | SET | | 8:06 PM | | procedure are in the | | (NA,K,CL,CO2,BUN,CRE | | PST | | results section. | | AT,GLUC,CA,AST,ALT,B | | | | | | LADY TOTAL,ALK | | | | | | PHOS,ALB,PROT TOTAL) | | | | | + +--------+ + + + | COAGULOPATHY PANEL | Urgent | 03/12/2012 | | Results for this | | (INR,APTT,FIBRINOGEN | | 8:06 PM | | procedure are in the | | ) | | PST | | results section. | + +--------+ + + + | CAPILLARY BLOOD | Routin | 03/12/2012 | | Results for this | | GLUCOSE (NO CHG), | e | 7:19 PM | | procedure are in the | | POC | | PST | | results section. | + +--------+ + + + | CBC AND AUTO DIFF | Urgent | 03/12/2012 | | Results for this | | | | 7:18 PM | | procedure are in the | | | | PST | | results section. | + +--------+ + + + | MANUAL DIFFERENTIAL | Routin | 03/12/2012 | | Results for this | | | e | 7:18 PM | | procedure are in the | | | | PST | | results section. | + +--------+ + + + | CBC, WITH | Urgent | 03/12/2012 | | Results for this | | DIFFERENTIAL | | 7:18 PM | | procedure are in the | | | | PST | | results section. | + +--------+ + + + | RENAL FUNCTION SET | Urgent | 03/12/2012 | | Results for this | | (NA,K,CL,CO2,BUN,CRE | | 7:18 PM | | procedure are in the | | AT,GLUC,CA,PHOS,ALB | | PST | | results section. | | ) | | | | | + +--------+ + + + | APTT (ACT. PART. | Urgent | 03/12/2012 | | Results for this | | THROMBO TIME) | | 7:18 PM | | procedure are in the | | | | PST | | results section. | + +--------+ + + + | ANTIBODY SCREEN | Urgent | 03/12/2012 | | Results for this | | | | 7:18 PM | | procedure are in the | | | | PST | | results section. | + +--------+ + + + | ABO & RH TYPE | Urgent | 03/12/2012 | | Results for this | | | | 7:18 PM | | procedure are in the | | | | PST | | results section. | + +--------+ + + + | MAGNESIUM, PLASMA | Urgent | 03/12/2012 | | Results for this | | | | 7:18 PM | | procedure are in the | | | | PST | | results section. | + +--------+ + + + | ORDERS OTHER | | 03/12/2012 | | Results for this | | | | 12:00 AM | | procedure are in the | | | | PST | | results section. | + +--------+ + + + | ORDERS OTHER | | 03/12/2012 | | Results for this | | | | 12:00 AM | | procedure are in the | | | | PST | | results section. | + +--------+ + + + | ORDERS OTHER | | 03/12/2012 | | Results for this | | | | 12:00 AM | | procedure are in the | | | | PST | | results section. | + +--------+ + + + documented in this encounter Results PROCEDURE NOTE (05/16/2015 12:22 AM PST)PROCEDURE NOTE (05/16/2015 12:11 AM PST) + + | Transcriptions | + + | Other, Faculty - 04/06/2012 8:52 AM PST | + + INR (04/01/2012 5:40 AM PST) + + + + + + | Component | Value | Ref Range | Performed | Pathologist | | | | | At | Signature | + + + + + + | INR | 1.21 (H) | 0.90 - 1.20 INR | [...] [facility] | [address] | [place] [address] | | | SERVICES, CORE | [address] | | | + + + + + CBC (03/31/2012 3:58 AM PST) + + + + + + | Component | Value | Ref Range | Performed | Pathologist | | | | | At | Signature | + + + + + + | WHITE CELL | 15.9 (H) | 4.4 - 11.0 K/cu | [facility] | | | COUNT | | mm | LABORATORY | | | | | | SERVICES, | | | | | | CORE | | + + + + + + | RED CELL | 3.39 (L) | 4.00 - 5.20 | [facility] [...] + + + + | HEMATOCRIT | 30.7 (L) | 36.0 - 46.0 % | [facility] | | | | | | LABORATORY | | | | | | SERVICES, | | | | | | CORE | | + + + + + + | MCV | 90.4 | 80.0 - 96.0 fL | [facility] | | | | | | LABORATORY | | | | | | SERVICES, | | | | | | CORE | | + + + + + + | MCHC | 32.0 (L) | 33.4 - 35.5 | [facility] | | | | | g/dL | LABORATORY | | | | | | SERVICES, | | | | | | CORE | | + + + + + + | RDW | 26.5 (H) | 11.5 - 15.0 % | [facility] | | | | | | LABORATORY | | | | | | SERVICES, | | | | | | CORE | | + + + + + + | PLATELET | 450 (H) | 150 - 400 K/cu | [...] [facility] | [address] | [place] [address] | | | SERVICES, CORE | [address] | | | + + + + + INR (03/31/2012 3:58 AM PST) + +-------+ + + + | Component | Value | Ref Range | Performed | Pathologist | | | | | At | Signature | + +-------+ + + + | INR | 1.11 | 0.90 - 1.20 INR | [facility] | | | | | | LABORATORY [...] | + + + + + | [facility] | [address] | [place] [address] | | | SERVICES, CORE | [address] | | | + + + + + MAGNESIUM, PLASMA (03/31/2012 3:58 AM PST) + +-------+ + + + | Component | Value | Ref Range | Performed | Pathologist | | | | | At | Signature | + +-------+ + + + | MAGNESIUM,P | 1.9 | 1.8 - 2.5 mg/dL | [facility] [...] | + + + + + | [facility] | [address] | [place] [address] | | | SERVICES, CORE | [address] | | | + + + + + BASIC METABOLIC SET (NA, K, CL, TCO2, BUN, CR, GLU, CA) (03/31/2012 3:58 AM PST) + +---------+ + + + | Component | Value | Ref Range | Performed | Pathologist | | | | | At | Signature | + +---------+ + + + | GLUCOSE, | 94 | 60 - 99 mg/dL | [facility] | | | PLASMA | | | LABORATORY | | | (LAB) | | | SERVICES, | | | | | | CORE | | + +---------+ + + + | BUN, PLASMA | 2 (L) | 6 - 20 mg/dL | [facility] [...] + | ANION GAP | 7 | 4 - 11 mmol/L | [facility] | | | | [...] [facility] | [address] | [place] [address] | | | ARON, JANELL | [address] | | | + + + + + MRI PELVIS WO CONTRAST (03/30/2012 6:22 PM PST) + + + + + + | Component | Value | Ref Range | Performed | Pathologist | | | | | At | Signature | + + + + + + | MR PELVIS | Limited abdominal MRI | | | | | WO CONTRAST | without contrast. | | | | | | Comparison: CT | | | | | | abdomen/pelvis | | | | | | 03/28/2012. FINDINGS: | | | | | | ABDOMEN: Visualized | | | | | | liver is unremarkable. | | | | | | Gallbladder | | | | | | surgicallyabsent. | | | | | | Visualized pancreas, | | | | | | adrenal glands, and | | | | | | kidneys areunremarkable. | | | | | | Spleen is scarred as | | | | | | before. PELVIS: Bladder | | | | | | is unremarkable. | | | | | | Rectosigmoid wall | | | | | | thickeningpersists, with | | | | | | persistent perirectal | | | | | | inflammatory | | | | | | changescorresponding to | | | | | | known perirectal sinus | | | | | | tract due to | | | | | | underlyinginflammatory | | | | | | bowel disease/Crohn's.. | | | | | | Neoterminal ileal | | | | | | wallthickening and | | | | | | perienteric stranding | | | | | | again noted near the | | | | | | ileocolicanastomosis | | | | | | following ileocecectomy, | | | | | | in keeping with | | | | | | regionalenteritis/Crohn' | | | | | | s. IMPRESSION: Limited | | | | | | study. No change from | | | | | | CT of 03/28/2012. | | | | | | Attending Radiologists: | | | | | | Meera Hillman M.D.Author: | | | | | | Meera Hillman M.D. I have | | | | | | personally viewed this | | | | | | procedure/exam, reviewed | | | | | | this report,and made | | | | | | changes to it where | | | | | | appropriate. | | | | | | Final/Electronically | | | | | | signed / Meera Dosophia | | | | | | 04/25/2012 9:31 AM | | | | | | Final/Electronically | | | | | | signed / Meera Dobos | | | | | | 03/31/2012 20:21 PM | | | | | | Preliminary / Meera | | | | | | Dobos 03/31/2012 20:16 | | | | | | PM | | | | + + + + + + + + | Specimen | + + | | + + + +---------+ + + | Performing | Address | City/State/Zipcode | Phone Number | | Organization | | | | + +---------+ + + | [facility] [facility] OF | | | | | RADIOLOGY | | | | + +---------+ + + MRI ABDOMEN WO CONTRAST (03/30/2012 6:22 PM PST) + + + + + + | Component | Value | Ref Range | Performed | Pathologist | | | | | At | Signature | + + + + + + | MR ABDOMEN | Limited abdominal MRI | | | | | WO CONTRAST | without contrast. | | | | | | Comparison: CT | | | | | | abdomen/pelvis | | | | | | 03/28/2012. FINDINGS: | | | | | | ABDOMEN: Visualized | | | | | | liver is unremarkable. | | | | | | Gallbladder | | | | | | surgicallyabsent. | | | | | | Visualized pancreas, | | | | | | adrenal glands, and | | | | | | kidneys areunremarkable. | | | | | | Spleen is scarred as | | | | | | before. PELVIS: Bladder | | | | | | is unremarkable. | | | | | | Rectosigmoid wall | | | | | | thickeningpersists, with | | | | | | persistent perirectal | | | | | | inflammatory | | | | | | changescorresponding to | | | | | | known perirectal sinus | | | | | | tract due to | | | | | | underlyinginflammatory | | | | | | bowel disease/Crohn's.. | | | | | | Neoterminal ileal | | | | | | wallthickening and | | | | | | perienteric stranding | | | | | | again noted near the | | | | | | ileocolicanastomosis | | | | | | following ileocecectomy, | | | | | | in keeping with | | | | | | regionalenteritis/Crohn' | | | | | | s. IMPRESSION: Limited | | | | | | study. No change from | | | | | | CT of 03/28/2012. | | | | | | Attending Radiologists: | | | | | | Meera Hillman M.D.Author: | | | | | | Meera Hillman M.D. I have | | | | | | personally viewed this | | | | | | procedure/exam, reviewed | | | | | | this report,and made | | | | | | changes to it where | | | | | | appropriate. | | | | | | Final/Electronically | | | | | | signed / Meera Dobos | | | | | | 04/25/2012 9:31 AM | | | | | | Final/Electronically | | | | | | signed / Meera Dobos | | | | | | 03/31/2012 20:21 PM | | | | | | Preliminary / Meera | | | | | | Dobos 03/31/2012 20:16 | | | | | | PM [...] | | + +---------+ + + CBC (03/30/2012 12:45 PM PST) + + + + + + | Component | Value | Ref Range | Performed | Pathologist | | | | | At | Signature | + + + + + + | WHITE CELL | 20.1 (H) | 4.4 - 11.0 K/cu | [facility] | | | COUNT | | mm | LABORATORY | | | | | | SERVICES, | | | | | | CORE | | + + + + + + | RED CELL | 3.66 (L) | 4.00 - 5.20 | [facility] | | | COUNT | | M/cu mm | LABORATORY | | | | | | SERVICES, | | | | | | CORE | | + + + + + + | HEMOGLOBIN | 10.5 (L) | 12.0 - 16.0 | [facility] | | | | | g/dL | LABORATORY | | | | | | SERVICES, | | | | | | CORE | | + + + + + + | HEMATOCRIT | 32.7 (L) | 36.0 - 46.0 % | [facility] | | | | | | LABORATORY | | | | | | SERVICES, | | | | | | CORE | | + + + + + + | MCV | 89.4 | 80.0 - 96.0 fL | [facility] | | | | | | LABORATORY | | | | | | SERVICES, | | | | | | CORE | | + + + + + + | MCHC | 32.1 (L) | 33.4 - 35.5 | [facility] | | | | | g/dL | LABORATORY | | | | | | SERVICES, | | | | | | CORE | | + + + + + + | RDW | 24.2 (H) | 11.5 - 15.0 % | [facility] | | | | | | LABORATORY | | | | | | SERVICES, | | | | | | CORE | | + + + + + + | PLATELET | 494 (H) | 150 - 400 K/cu | [...] [facility] | [address] | [place] [address] | | | SERVICES, CORE | [address] | | | + + + + + APTT (ACT. PART. THROMBO TIME) (03/30/2012 12:45 PM PST) + + + + + + | Component | Value | Ref Range | Performed | Pathologist | | | | | At | Signature | + + + + + + | APTT | 97.1 (H) | 26.0 - 36.0 | [facility] | | | | | sec. | LABORATORY | | | | | [...] [facility] | [address] | [place] [address] | | | SERVICES, CORE | [address] | | | + + + + + APTT (ACT. PART. THROMBO TIME) (03/30/2012 5:51 AM PST) + + + + + + | Component | Value | Ref Range | Performed | Pathologist | | | | | At | Signature | + + + + + + | APTT | 70.2 (H) | 26.0 - 36.0 | [facility] | | | | | sec. | LABORATORY | | | | | [...] [facility] | [address] | [place] [address] | | | SERVICES, CORE | [address] | | | + + + + + CBC (03/30/2012 3:56 AM PST) + + + + + + | Component | Value | Ref Range | Performed | Pathologist | | | | | At | Signature | + + + + + + | WHITE CELL | 17.0 (H) | 4.4 - 11.0 K/cu | [facility] | | | COUNT [...] + + + + | HEMOGLOBIN | 9.9 (L) | 12.0 - 16.0 | [facility] | | | | | g/dL | LABORATORY | | | | | | SERVICES, | | | | | | CORE | | + + + + + + | HEMATOCRIT | 31.1 (L) | 36.0 - 46.0 % | [facility] | | | | | | LABORATORY | | | | | | SERVICES, | | | | | | CORE | | + + + + + + | MCV | 89.2 | 80.0 - 96.0 fL | [facility] | | | | | | LABORATORY | | | | | | SERVICES, | | | | | | CORE | | + + + + + + | MCHC | 31.9 (L) | 33.4 - 35.5 | [facility] | | | | | g/dL | LABORATORY | | | | | | SERVICES, | | | | | | CORE | | + + + + + + | RDW | 25.0 (H) | 11.5 - 15.0 % | [facility] | | | | | | LABORATORY | | | | | | SERVICES, | | | | | | CORE | | + + + + + + | PLATELET | 471 (H) | 150 - 400 K/cu | [...] | + + + + + | [facility] | [address] | [place] [address] | | | SERVICES, CORE | [address] | | | + + + + + MAGNESIUM, PLASMA (03/30/2012 3:56 AM PST) + +---------+ + + + [...] | + + + + + | [facility] | [address] | [place] [address] | | | SERVICES, CORE | [address] | | | + + + + + INR (03/30/2012 3:56 AM PST) + + + + + + | Component | Value | Ref Range | Performed | Pathologist | | | | | At | Signature | + + + + + + | INR | 1.26 (H) | 0.90 - 1.20 INR | [...] | + + + + + | [facility] | [address] | [place] [address] | | | SERVICES, CORE | [address] | | | + + + + + BASIC METABOLIC SET (NA, K, CL, TCO2, BUN, CR, GLU, CA) (03/30/2012 3:56 AM PST) + + + + + + | Component | Value | Ref Range | Performed | Pathologist | | | | | At | Signature | + + + + + + | GLUCOSE, | 116 (H) | 60 - 99 mg/dL | [facility] | | | PLASMA | | | LABORATORY | | | (LAB) | | | SERVICES, | | | | | | CORE | | + + + + + + | BUN, PLASMA | 2 (L) | 6 - 20 mg/dL | [facility] | | | (LAB) | | | LABORATORY | | | | | | SERVICES, | | | | | | CORE | | + + + + + + | CREATININE | 0.55 (L) | 0.60 - 1.10 | [facility] | | | PLASMA | | mg/dL | LABORATORY | | | (LAB) | | | SERVICES, | | | | | | CORE | | + + + + + + | SODIUM, | 141 [...] + + + + | CALCIUM, | 8.2 (L) | 8.6 - 10.2 | [facility] | | | PLASMA | | mg/dL | LABORATORY | | | (LAB) | | | SERVICES, | | | | | | CORE | | + + + + + + | ANION GAP | 10 | 4 - 11 mmol/L | [facility] | | | | [...] [facility] | [address] | [place] [address] | | | ARON, JANELL | [address] | | | + + + + + APTT (ACT. PART. THROMBO TIME) (03/29/2012 11:59 PM PST) + + + + + + | Component | Value | Ref Range | Performed | Pathologist | | | | | At | Signature | + + + + + + | APTT | 44.6 (H) | 26.0 - 36.0 | [facility] [...] 0.7 U/mL | LABORATORY | | | JANELL SHARP | + + + + + + + + | Performing | Address | City/State/Zipcode | Phone Number | | Organization | | | | + + + + + | [facility] | [address] | [place] [address] | | | SERVICESJANELL | [address] | | | + + + + + HEPATITIS B CORE AB, SERUM (03/29/2012 5:17 PM PST) + + + + + + | Component | Value | Ref Range | Performed | Pathologist | | | | | At | Signature | + + + + + + | HEPATITIS B | Negative | Negative | [facility] - | | | CORE AB, | | | [facility] - | | | SERUM | | | [place] | | + + + + + + + + | Specimen | + + | Blood - Blood | + + + + + + + | Performing | Address | City/State/Zipcode | Phone Number | | Organization | | | | + + + + + | [facility] | [address] | [place] [address] | | | [place] | | | | + + + + + HEPATITIS B SURFACE AB QUAL, SERUM (03/29/2012 5:17 PM PST) + + + + + + | Component | Value | Ref Range | Performed | Pathologist | | | | | At | Signature | + + + + + + | HEP B | Positive (A) | Negative | [facility] - | | | SURFACE AB | | | [facility] - | | | QUAL, SERUM | | | [place] | | + + + + + + + + | Specimen | + + | Blood - Blood | + + + + + + + | Performing | Address | City/State/Zipcode | Phone Number | | Organization | | | | + + + + + | [facility] - | [address] | [place] [address] | | | [place] | | | | + + + + + HEPATITIS B SURFACE AG, SERUM (03/29/2012 5:17 PM PST) + + + + + + | Component | Value | Ref Range | Performed | Pathologist | | | | | At | Signature | + + + + + + | HEPATITIS B | Negative | Negative | [facility] - | | | SURFACE | | | [facility] - | | | AG, SERUM | | | [place] | | + + + + + + + + | Specimen | + + | Blood - Blood | + + + + + + + | Performing | Address | City/State/Zipcode | Phone Number | | Organization | | | | + + + + + | [facility] - | [address] | [place] [address] | | | [place] | | | | + + + + + CBC (03/29/2012 4:42 AM PST) + + + + + + | Component | Value | Ref Range | Performed | Pathologist | | | | | At | Signature | + + + + + + | WHITE CELL | 14.2 (H) | 4.4 - 11.0 K/cu | [facility] | | | COUNT | | mm | LABORATORY | | | | | | SERVICES, | | | | | | CORE | | + + + + + + | RED CELL | 3.45 (L) | 4.00 - 5.20 | [facility] | | | COUNT | | M/cu mm | LABORATORY | | | | | | SERVICES, | | | | | | CORE | | + + + + + + | HEMOGLOBIN | 9.7 (L) | 12.0 - 16.0 | [facility] | | | | | g/dL | LABORATORY | | | | | | SERVICES, | | | | | | CORE | | + + + + + + | HEMATOCRIT | 30.3 (L) | 36.0 - 46.0 % | [facility] | | | | | | LABORATORY | | | | | | SERVICES, | | | | | | CORE | | + + + + + + | MCV | 87.8 | 80.0 - 96.0 fL | [facility] | | | | | | LABORATORY | | | | | | SERVICES, | | | | | | CORE | | + + + + + + | MCHC | 32.0 (L) | 33.4 - 35.5 | [facility] | | | | | g/dL | LABORATORY | | | | | | SERVICES, | | | | | | CORE | | + + + + + + | RDW | 24.2 (H) | 11.5 - 15.0 % | [facility] | | | | | | LABORATORY | | | | | | SERVICES, | | | | | | CORE | | + + + + + + | PLATELET | 490 (H) | 150 - 400 K/cu | [...] | + + + + + | [facility] | [address] | [place] [address] | | | SERVICES, CORE | [address] | | | + + + + + MAGNESIUM, PLASMA (03/29/2012 4:42 AM PST) + +---------+ + + + [...] | + + + + + | [facility] | [address] | [place] [address] | | | SERVICES, CORE | [address] | | | + + + + + INR (03/29/2012 4:42 AM PST) + + + + + + | Component | Value | Ref Range | Performed | Pathologist | | | | | At | Signature | + + + + + + | INR | 1.21 (H) | 0.90 - 1.20 INR | [...] | + + + + + | [facility] | [address] | [place] [address] | | | SERVICES, CORE | [address] | | | + + + + + BASIC METABOLIC SET (NA, K, CL, TCO2, BUN, CR, GLU, CA) (03/29/2012 4:42 AM PST) + + + + + [...] + + + | BUN, PLASMA | 2 (L) | 6 - 20 mg/dL | [facility] [...] + + + + | SODIUM, | 142 | 136 - 145 | [facility] | | | PLASMA | | mmol/L | LABORATORY | | | (LAB) | | | SERVICES, | | | | | | CORE | | + + + + + + | POTASSIUM, | 3.7 | 3.4 - 5.0 | [facility] | | | PLASMA | | mmol/L | LABORATORY | | | (LAB) | | | SERVICES, | | | | | | CORE | | + + + + + + | CHLORIDE, | 109 (H) | 97 - 108 mmol/L | [facility] | | | PLASMA | | | LABORATORY | | | (LAB) | | | SERVICES, | | | | | | CORE | | + + + + + + | TOTAL CO2, | 25 | 21 - 32 mmol/L | [facility] [...] + | ANION GAP | 8 | 4 - 11 mmol/L | [facility] | | | | [...] | + + + + + | [facility] | [address] | [place] [address] | | | SERVICES, CORE | [address] | | | + + + + + COLONOSCOPY (03/29/2012 12:00 AM PST) + + + | Narrative | Performed At | + + + | | | | | | + + + + + | Procedure Note | + + | Emeka Elias - 03/29/2012 4:36 PM PST | + + EGD (03/29/2012 12:00 AM PST) + + + | Narrative | Performed At | + + + | | | | | | + + + + + | Procedure Note | + + | Other, Faculty - 03/29/2012 4:26 PM PST | + + SURGICAL PATHOLOGY (03/29/2012) + + + + + + | Component | Value | Ref Range | Performed | Pathologist | | | | | At | Signature | + + + + + + | SURGICAL | SOURCE OF SPECIMEN:A | | [facility] | | | PATHOLOGY | Right colon biopsySOURCE | | DEPARTMENT | | | | OF SPECIMEN:B Random | | OF | | | | colonSOURCE OF | | PATHOLOGY | | | | SPECIMEN:C Distal rectum | | | | | | Final Pathologic | | | | | | Diagnosis:A. Right | | | | | | colon, biopsy: - | | | | | | Granulation tissue with | | | | | | extensive acute and | | | | | | chronic inflammation(see | | | | | | comment) - | | | | | | Negative for granulomas | | | | | | and dysplasia - | | | | | | Negative for CMV, | | | | | | equivocal for adenovirus | | | | | | by immunohistochemistry | | | | | | B. Random colon, | | | | | | biopsy: - Colonic | | | | | | mucosa with no | | | | | | diagnostic abnormality | | | | | | - Negative for | | | | | | granulomas and dysplasia | | | | | | C. 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 No | | | | | | intact colonic mucosa to | | | | | | be evaluated.There is | | | | | | no evidence of ischemic | | | | | | changes. The | | | | | | differential | | | | | | diagnosisincludes ulcer | | | | | | bed in severely active | | | | | | chronic colitis and | | | | | | infectiouscolitis. | | | | | | Immunohistochemical | | | | | | studies show negative | | | | | | CMV stain, and | | | | | | equivocaladenovirus | | | | | | stain with very rare | | | | | | positive cells. | | | | | | Irene Hernandez | | | | | | reviewedthe gunter slide | | | | | | and agrees. The | | | | | | preliminary result was | | | | | | discussed with Dr. Carrera | | | | | | Anastasia by Dr. Arias | | | | | | on03/30/2012. | | | | | | (Analyte specific | | | | | | reagents are used in | | | | | | many laboratory tests | | | | | | necessary forstandard | | | | | | medical care and | | | | | | generally do not require | | | | | | FDA approval. This | | | | | | testwas developed and | | | | | | its performance | | | | | | characteristics | | | | | | determined by | | | | | | [facility]. It | | | | | | has not been cleared or | | | | | | approved by the [place]. | | | | | | Food andDrug | | | | | | Administration.) | | | | | | Case seen by:Tamara | | | | | | Biju Loco M.D./Surgical | | | | | | Pathology FellowHung Arias | | | | | | M.D./Surgical | | | | | | Pathologist | | | | | | Clinical History:The | | | | | | patient is a 56-year-old | | | | | | female with history of | | | | | | Crohn's disease | | | | | | withmultiple | | | | | | complications | | | | | | (multivessel thrombi, | | | | | | perirectal abscess | | | | | | andrecto-vaginal | | | | | | fistula, HCPA vs | | | | | | pulmonary hemorrhage) | | | | | | being transferred tothe | | | | | | MICU for GI bleed | | | | | | resulting in hemorrhage. | | | | | | She stopped her | | | | | | Remicade andwarfarin a | | | | | | year ago due to losing | | | | | | insurance and presented | | | | | | 16 days ago | | | | | | withuncontrolled Crohn's | | | | | | flair with perirectal | | | | | | abscesses and fistulae | | | | | | andarterial thrombosis. | | | | | | She had initially | | | | | | refused surgical | | | | | | intervention, andinstead | | | | | | has been treated on | | | | | | broad spectrum | | | | | | antibiotics for fistula | | | | | | andpossible HCAP. Now | | | | | | has consented to surgery | | | | | | and [place] | | | | | repair of fistula. Rule | | | | | | out ischemia versus CMV | | | | | | versusCrohn's. | | | | | | Gross | | | | | | Description:Received are | | | | | | 3 specimens in formalin | | | | | | in containers labeled | | | | | | with thepatient's name | | | | | | (initials CY) and: | | | | | | A: Right colon | | | | | | biopsy: Received are 4 | | | | | | soft echavarria-red pieces of | | | | | | tissuemeasuring 0.7 x | | | | | | 0.5 x 0.3 cm in | | | | | | aggregate. The | | | | | | specimen is | | | | | | entirelysubmitted. | | | | | | B: Random colon: | | | | | | Received are 4 soft | | | | | | echavarria-red pieces of tissue | | | | | | measuring1.2 x 0.5 x | | | | | | 0.3 cm in aggregate. | | | | | | The specimen is | | | | | | entirely submitted. | | | | | | C: Distal rectum: | | | | | | Received are 4 soft | | | | | | echavarria-red pieces of tissue | | | | | | measuring1.3 x 0.4 x | | | | | | 0.3 cm in aggregate. | | | | | | The specimen is | | | | | | entirely submitted. | | | | | | Cassette Index:A: | | | | | | Right colon | | | | | | biopsy:A1B: Random | | | | | | colon:B1C: Distal | | | | | | rectum:[id number]/rdl | | | | | | My electronic signature | | | | | | indicates that I have | | | | | | personally reviewed | | | | | | alldiagnostic slides, | | | | | | the gross and/or | | | | | | microscopic portion of | | | | | | thisreport and | | | | | | formulated the final | | | | | | diagnosis. | | | | | | Rendering Diagnostician: | | | | | | Hung Arias | | | | | | MDPathologistElectronica | | | | | | lly Signed 03/31/2012 | | | | | | 1:18PM | | | | + + + + + + + + | Specimen | + + | | + + + + + + + | Performing | Address | City/State/Zipcode | Phone Number | | Organization | | | | + + + + + | [facility] | [address] | [place] [address] | | | PATHOLOGY | [address] | | | + + + + + CBC (03/28/2012 11:57 PM PST) + + + + + + | Component | Value | Ref Range | Performed | Pathologist | | | | | At | Signature | + + + + + + | WHITE CELL | 15.1 (H) | 4.4 - 11.0 K/cu | [facility] | | | COUNT | | mm | LABORATORY | | | | | | SERVICES, | | | | | | CORE | | + + + + + + | RED CELL | 3.46 (L) | 4.00 - 5.20 | [facility] | | | COUNT | | M/cu mm | LABORATORY | | | | | | SERVICES, | | | | | | CORE | | + + + + + + | HEMOGLOBIN | 9.7 (L) | 12.0 - 16.0 | [facility] | | | | | g/dL | LABORATORY | | | | | | SERVICES, | | | | | | CORE | | + + + + + + | HEMATOCRIT | 30.5 (L) | 36.0 - 46.0 % | [facility] | | | | | | LABORATORY | | | | | | SERVICES, | | | | | | CORE | | + + + + + + | MCV | 88.1 | 80.0 - 96.0 fL | [facility] | | | | | | LABORATORY | | | | | | SERVICES, | | | | | | CORE | | + + + + + + | MCHC | 31.9 (L) | 33.4 - 35.5 | [facility] | | | | | g/dL | LABORATORY | | | | | | SERVICES, | | | | | | CORE | | + + + + + + | RDW | 24.0 (H) | 11.5 - 15.0 % | [facility] | | | | | | LABORATORY | | | | | | SERVICES, | | | | | | CORE | | + + + + + + | PLATELET | 551 (H) | 150 - 400 K/cu | [...] + + | [facility] | [address] | [place] [address] | | | SERVICES, JANELL | [address] | | | + + + + + LACTIC ACID (03/28/2012 7:41 PM PST) + +-------+ + + + | Component | Value | Ref Range | Performed | Pathologist | | | | | At | Signature | + +-------+ + + + | LACTATE | 2.5 | mmol/L | [facility] | | | [...] 1.6 mmol/L | LABORATORY | | | SERVICES, CORE | + + + + + + + + | Performing | Address | City/State/Zipcode | Phone Number | | Organization | | | | + + + + + | [facility] | [address] | [place] [address] | | | SERVICES, CORE | [address] | | | + + + + + CT ABDOMEN & PELVIS W IV CONTRAST (03/28/2012 5:35 PM PST) + + + + + + | Component | Value | Ref Range | Performed | Pathologist | | | | | At | Signature | + + + + + + | CT ABDOMEN | CT ABDOMEN/PELVIS WITH | | | | | & PELVIS W | CONTRAST: HISTORY: | | | | | CONTRAST | Crohn's disease, recent | | | | | | melena with hematocrit | | | | | | drop.Evaluate for | | | | | | mesenteric ischemia. | | | | | | COMPARISON: CT abdomen | | | | | | and pelvis with contrast | | | | | | 03/12/12. TECHNIQUE: CT | | | | | | scan of the abdomen and | | | | | | pelvis was performed | | | | | | from thelung bases | | | | | | through the pubic | | | | | | symphysis with oral and | | | | | | intravenous (150mL | | | | | | Omnipaque 300) contrast. | | | | | | Overlapping 5 mm | | | | | | thick axial slices | | | | | | withcoronal and sagittal | | | | | | reconstructions were | | | | | | obtained. FINDINGS: | | | | | | Abdomen:Bilateral | | | | | | posterior lower lobe | | | | | | ground glass and | | | | | | consolidatedopacities | | | | | | with associated pleural | | | | | | effusions, right greater | | | | | | than left.The heart is | | | | | | normal in size without | | | | | | pericardial effusion. | | | | | | Nopneumothorax | | | | | | identified. There is a | | | | | | focal hepatic | | | | | | hypodensity along the | | | | | | medial aspect of | | | | | | theright lobe along the | | | | | | falciform ligament and | | | | | | gallbladder fossa | | | | | | likelyrepresenting fatty | | | | | | infiltration. Otherwise | | | | | | the liver is | | | | | | unremarkable.The | | | | | | gallbladder is | | | | | | surgically absent with | | | | | | cholecystectomy clips | | | | | | inplace. The adrenals | | | | | | and pancreas are | | | | | | unremarkable. Bilateral | | | | | | lobularrenal contour | | | | | | with mild cortical | | | | | | thinning is noted. Focal | | | | | | corticalindentation | | | | | | along the posterior mid | | | | | | right kidney likely | | | | | | representsscar. | | | | | | Subcapsular perisplenic | | | | | | fluid collection with | | | | | | multiple spleniccapsular | | | | | | scars. Moderate diffuse | | | | | | gastric, small and | | | | | | large bowel mucosal | | | | | | hyperemia.Prominent | | | | | | gastric folds likely due | | | | | | to under distention. | | | | | | Priorileocecectomy is | | | | | | noted with resection | | | | | | amanda-anastomotic | | | | | | inflammationand residual | | | | | | wall | | | | | | thickening/hyperemia, | | | | | | overall decreased from | | | | | | priorstudy. Segment of | | | | | | splenic flexure colonic | | | | | | wall thickening | | | | | | likelyrepresents a | | | | | | segment of inflammatory | | | | | | bowel disease. Branching | | | | | | rightperirectal sinus | | | | | | tract contacting the | | | | | | right levator muscle | | | | | | withassociated rectal | | | | | | wall thickening (coronal | | | | | | image 25). No evidence | | | | | | ofdrainable abscess. | | | | | | Possible small left | | | | | | perirectal sinus as | | | | | | well. Noevidence of | | | | | | pneumatosis or free air. 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 | | | | | | Previously | | | | | | notedabdominal aortic | | | | | | ulcerating polypoid | | | | | | plaque along the | | | | | | posterior walljust | | | | | | distal to the SHAYLA is no | | | | | | longer seen. Pelvis:The | | | | | | uterus and ovaries have | | | | | | been surgically removed. | | | | | | No | | | | | | abnormallymphadenopathy | | | | | | or fluid collection. The | | | | | | bladder is | | | | | | unremarkable. | | | | | | IMPRESSION: 1. | | | | | | Inflammatory bowel | | | | | | disease near the | | | | | | ileocecal resection site | | | | | | andsplenic flexure | | | | | | colon with improving | | | | | | pericecal inflammation. | | | | | | 2. Rectal wall | | | | | | thickening and right | | | | | | perirectal sinus tract | | | | | | with nodrainable | | | | | | abscess. 3. No evidence | | | | | | of bowel ischemia. | | | | | | Attending Radiologists: | | | | | | Meera Hillman M.D.Author: | | | | | | LIZZ DEE MD I have | | | | | | personally viewed this | | | | | | procedure/exam, reviewed | | | | | | this report,and made | | | | | | changes to it where | | | | | | appropriate. | | | | | | Final/Electronically | | | | | | signed / Meera Hillman | | | | | | 03/29/2012 15:23 PM | | | | | | Pending final approval | | | | | | / LIZZ DEE | | | | | | 03/29/2012 10:03 AM | | | | | | Preliminary / | | | | | | LIZZ DEE 03/29/2012 | | | | | | 8:58 AM | | | | + + [...] + CAPILLARY BLOOD GLUCOSE (NO CHG), POC (03/28/2012 4:53 PM PST) + +---------+ + + + [...] [facility] | [address] | [place], [place] | | | [facility] | [address] | [address] | | | TESTS | | | | + + + + + CBC (03/28/2012 4:48 PM PST) + + + + + + | Component | Value | Ref Range | Performed | Pathologist | | | | | At | Signature | + + + + + + | WHITE CELL | 14.2 (H) | 4.4 - 11.0 K/cu | [facility] | | | COUNT | | mm | LABORATORY | | | | | | SERVICES, | | | | | | CORE | | + + + + + + | RED CELL | 3.37 (L) | 4.00 - 5.20 | [facility] | | | COUNT | | M/cu mm | LABORATORY | | | | | | SERVICES, | | | | | | CORE | | + + + + + + | HEMOGLOBIN | 9.6 (L) | 12.0 - 16.0 | [facility] | | | | | g/dL | LABORATORY | | | | | | SERVICES, | | | | | | CORE | | + + + + + + | HEMATOCRIT | 29.3 (L) | 36.0 - 46.0 % | [facility] | | | | | | LABORATORY | | | | | | SERVICES, | | | | | | CORE | | + + + + + + | MCV | 87.1 | 80.0 - 96.0 fL | [facility] | | | | | | LABORATORY | | | | | | SERVICES, | | | | | | CORE | | + + + + + + | MCHC | 32.5 (L) | 33.4 - 35.5 | [facility] | | | | | g/dL | LABORATORY | | | | | | SERVICES, | | | | | | CORE | | + + + + + + | RDW | 23.4 (H) | 11.5 - 15.0 % | [facility] | | | | | | LABORATORY | | | | | | SERVICES, | | | | | | CORE | | + + + + + + | PLATELET | 487 (H) | 150 - 400 K/cu | [...] [facility] | [address] | [place] [address] | | | SERVICES, CORE | [address] | | | + + + + + MAGNESIUM, PLASMA (03/28/2012 4:48 PM PST) + +---------+ + + + [...] [facility] | [address] | [place] [address] | | | SERVICES, CORE | [address] | | | + + + + + PHOSPHORUS, PLASMA (03/28/2012 4:48 PM PST) + +---------+ + + + | Component | Value | Ref Range | Performed | Pathologist | | | | | At | Signature | + +---------+ + + + | PHOSPHORUS, | 2.3 (L) | 2.4 - 4.7 mg/dL | [...] | + + + + + | [facility] | [address] | [place] [address] | | | SERVICES, CORE | [address] | | | + + + + + CAPILLARY BLOOD GLUCOSE, POC (03/28/2012 11:38 AM PST) + +---------+ + + + | Component | Value | Ref Range | Performed | Pathologist | | | | | At | Signature | + +---------+ + + + | BLOOD | 115 (H) | 60 - 99 mg/dL | [...] [facility] | [address] | [place], [place] | | | [facility] | [address] | [address] | | | TESTS | | | | + + + + + CBC (03/28/2012 11:30 AM PST) + + + + + + | Component | Value | Ref Range | Performed | Pathologist | | | | | At | Signature | + + + + + + | WHITE CELL | 14.6 (H) | 4.4 - 11.0 K/cu | [facility] | | | COUNT | | mm | LABORATORY | | | | | | SERVICES, | | | | | | CORE | | + + + + + + | RED CELL | 3.41 (L) | 4.00 - 5.20 | [facility] | | | COUNT | | M/cu mm | LABORATORY | | | | | | SERVICES, | | | | | | CORE | | + + + + + + | HEMOGLOBIN | 9.6 (L) | 12.0 - 16.0 | [facility] | | | | | g/dL | LABORATORY | | | | | | SERVICES, | | | | | | CORE | | + + + + + + | HEMATOCRIT | 29.9 (L) | 36.0 - 46.0 % | [facility] | | | | | | LABORATORY | | | | | | SERVICES, | | | | | | CORE | | + + + + + + | MCV | 87.7 | 80.0 - 96.0 fL | [facility] | | | | | | LABORATORY | | | | | | SERVICES, | | | | | | CORE | | + + + + + + | MCHC | 32.3 (L) | 33.4 - 35.5 | [facility] | | | | | g/dL | LABORATORY | | | | | | SERVICES, | | | | | | CORE | | + + + + + + | RDW | 23.4 (H) | 11.5 - 15.0 % | [facility] | | | | | | LABORATORY | | | | | | SERVICES, | | | | | | CORE | | + + + + + + | PLATELET | 508 (H) | 150 - 400 K/cu | [...] [facility] | [address] | [place] [address] | | | SERVICES, CORE | [address] | | | + + + + + CBC (03/28/2012 6:44 AM PST) + + + + + + | Component | Value | Ref Range | Performed | Pathologist | | | | | At | Signature | + + + + + + | WHITE CELL | 13.4 (H) | 4.4 - 11.0 K/cu | [facility] | | | COUNT | | mm | LABORATORY | | | | | | SERVICES, | | | | | | CORE | | + + + + + + | RED CELL | 3.17 (L) | 4.00 - 5.20 | [facility] | | | COUNT | | M/cu mm | LABORATORY | | | | | | SERVICES, | | | | | | CORE | | + + + + + + | HEMOGLOBIN | 9.0 (L) | 12.0 - 16.0 | [facility] | | | | | g/dL | LABORATORY | | | | | | SERVICES, | | | | | | CORE | | + + + + + + | HEMATOCRIT | 27.8 (L) | 36.0 - 46.0 % | [facility] | | | | | | LABORATORY | | | | | | SERVICES, | | | | | | CORE | | + + + + + + | MCV | 87.7 | 80.0 - 96.0 fL | [facility] | | | | | | LABORATORY | | | | | | SERVICES, | | | | | | CORE | | + + + + + + | MCHC | 32.4 (L) | 33.4 - 35.5 | [facility] | | | | | g/dL | LABORATORY | | | | | | SERVICES, | | | | | | CORE | | + + + + + + | RDW | 23.1 (H) | 11.5 - 15.0 % | [facility] | | | | | | LABORATORY | | | | | | SERVICES, | | | | | | CORE | | + + + + + + | PLATELET | 472 (H) | 150 - 400 K/cu | [...] [facility] | [address] | [place] [address] | | | SERVICES, CORE | [address] | | | + + + + + BASIC METABOLIC SET (NA, K, CL, TCO2, BUN, CR, GLU, CA) (03/28/2012 6:44 AM PST) + + + + + + | Component | Value | Ref Range | Performed | Pathologist | | | | | At | Signature | + + + + + + | GLUCOSE, | 119 (H) | 60 - 99 mg/dL | [facility] | | | PLASMA | | | LABORATORY | | | (LAB) | | | SERVICES, | | | | | | CORE | | + + + + + + | BUN, PLASMA | 4 (L) | 6 - 20 mg/dL | [facility] | | | (LAB) | | | LABORATORY | | | | | | SERVICES, | | | | | | CORE | | + + + + + + | CREATININE | 0.52 (L) | 0.60 - 1.10 | [facility] | | | PLASMA | | mg/dL | LABORATORY | | | (LAB) | | | SERVICES, | | | | | | CORE | | + + + + + + | SODIUM, | 144 | 136 - 145 | [facility] | | | PLASMA | | mmol/L | LABORATORY | | | (LAB) | | | SERVICES, | | | | | | CORE | | + + + + + + | POTASSIUM, | 3.5 | 3.4 - 5.0 | [facility] | | | PLASMA | | mmol/L | LABORATORY | | | (LAB) | | | SERVICES, | | | | | | CORE | | + + + + + + | CHLORIDE, | 113 (H) | 97 - 108 mmol/L | [facility] | | | PLASMA | | | LABORATORY | | | (LAB) | | | SERVICES, | | | | | | CORE | | + + + + + + | TOTAL CO2, | 23 | 21 - 32 mmol/L | [facility] | | | PLASMA | | | LABORATORY | | | (LAB) | | | SERVICES, | | | | | | CORE | | + + + + + + | CALCIUM, | 7.4 (L) | 8.6 - 10.2 | [facility] | | | PLASMA | | mg/dL | LABORATORY | | | (LAB) | | | SERVICES, | | | | | | CORE | | + + + + + + | ANION GAP | 8 | 4 - 11 mmol/L | [facility] | | | | [...] + + | [facility] | [address] | [place] [address] | | | SERVICES, CORE | [address] | | | + + + + + COMPLETE METABOLIC SET (NA,K,CL,CO2,BUN,CREAT,GLUC,CA,AST,ALT,BILI TOTAL,ALK PHOS,ALB,PROT TOTAL) (03/28/2012 6:44 AM PST) + + + + + + | Component | Value | Ref Range | Performed | Pathologist | | | | | At | Signature | + + + + + + | GLUCOSE, | | 60 - 99 mg/dL | [facility] | | | PLASMA | | | LABORATORY | | | (LAB) | | | SERVICES, | | | | | | CORE | | + + + + + + | BUN, PLASMA | | 6 - 20 mg/dL | [facility] | | | (LAB) | | | LABORATORY | | | | | | SERVICES, | | | | | | CORE | | + + + + + + | CREATININE | 0.52 (L) | 0.60 - 1.10 | [facility] | | | PLASMA | | mg/dL | LABORATORY | | | (LAB) | | | SERVICES, | | | | | | CORE | | + + + + + + | SODIUM, | | 136 - 145 | [facility] | | | PLASMA | | mmol/L | LABORATORY | | | (LAB) | | | SERVICES, | | | | | | CORE | | + + + + + + | POTASSIUM, | | 3.4 - 5.0 | [facility] | | | PLASMA | | mmol/L | LABORATORY | | | (LAB) | | | SERVICES, | | | | | | CORE | | + + + + + + | CHLORIDE, | | 97 - 108 mmol/L | [facility] | | | PLASMA | | | LABORATORY | | | (LAB) | | | SERVICES, | | | | | | CORE | | + + + + + + | TOTAL CO2, | | 21 - 32 mmol/L | [facility] | | | PLASMA | | | LABORATORY | | | (LAB) | | | SERVICES, | | | | | | CORE | | + + + + + + | CALCIUM, | | 8.6 - 10.2 | [facility] | | | PLASMA | | mg/dL | LABORATORY | | | (LAB) | | | SERVICES, | | | | | | CORE | | + + + + + + | BILIRUBIN | 0.8 | 0.3 - 1.2 mg/dL | [facility] | | | TOTAL | | | LABORATORY | | | | | | SERVICES, | | | | | | CORE | | + + + + + + | TOTAL | 5.3 (L) | 6.1 - 7.9 g/dL | [facility] | | | PROTEIN, [...] + + + + + + | ALK PHOS | 69 | 42 - 98 U/L | [facility] | | | | | | LABORATORY | | | | | | SERVICES, | | | | | | CORE | | + + + + + + | AST(SGOT) | 15 | 15 - 41 U/L | [facility] | | | | | | LABORATORY | | | | | | SERVICES, | | | | | | CORE | | + + + + + + | ALT (SGPT) | 9 (L) | 12 - 60 U/L | [facility] | | | | | | LABORATORY | | | | | | SERVICES, | | | | | | CORE | | + + + + + + | ANION | | 4 - 11 mmol/L | [facility] [...] + + + + + + | BILI T CMNT | No Hemo | | [facility] | | | | | | LABORATORY | | | | | | SERVICES, | | | | | | CORE | | + + + + + + | AST CMNT | No Hemo | | [facility] | | | | | | LABORATORY | | | | | | SERVICES, | | | | | | CORE | | + + + + + + | ANION GAP | | 4 - 11 mmol/L | [facility] | | | | [...] [facility] | [address] | [place] [address] | | | ARON, JANELL | [address] | | | + + + + + X-RAY PORTABLE CHEST 1 VIEW (03/28/2012 6:28 AM PST) + + + + + + | Component | Value | Ref Range | Performed | Pathologist | | | | | At | Signature | + + + + + + | X-RAY | STUDY: [place] CHEST 1 VIEW | | | | | PORTABLE | 03/28/12 06:28:00 | | | | | CHEST 1 | COMPARISON: 03/22/2012. | | | | | VIEW | HISTORY: Evaluate | | | | | | recently observed | | | | | | consolidation. FINDINGS: | | | | | | The left upper | | | | | | extremity PICC is | | | | | | unchanged. The | | | | | | cardiomediastinalsilhoue | | | | | | tte is normal. The | | | | | | previously observed | | | | | | right lower | | | | | | lungconsolidative | | | | | | opacity has improved | | | | | | from the prior exam. | | | | | | Mildbibasilar and | | | | | | retrocardiac atelectasis | | | | | | persists. A trace | | | | | | rightpleural effusion is | | | | | | observed. There is no | | | | | | large left | | | | | | pleuraleffusion. No | | | | | | pneumothorax is noted. | | | | | | No acute osseous | | | | | | abnormality isobserved. | | | | | | IMPRESSION: Improving | | | | | | right lower lung | | | | | | consolidation, | | | | | | consistent with | | | | | | resolvingpneumonia or | | | | | | aspiration. Unchanged | | | | | | trace right pleural | | | | | | effusion. Bibasilar | | | | | | atelectasis. Attending | | | | | | Radiologists: Libby | | | | | | Fortino MorenoAuthor: JACOBY | | | | | | MD ANGY I have | | | | | | personally viewed this | | | | | | procedure/exam, reviewed | | | | | | this report,and made | | | | | | changes to it where | | | | | | appropriate. | | | | | | Final/Electronically | | | | | | signed / Libby | | | | | | Tiffanie 03/28/2012 10:17 AM | | | | | | | | | | + + + + + + + + | Specimen | + + | | + + + +---------+ + + | Performing | Address | City/State/Zipcode | Phone Number | | Organization | | | | + +---------+ + + | [facility] | | | | | RADIOLOGY | | | | + +---------+ + + PRODUCT- RED CELLS LEUKOREDUCED (03/28/2012 4:39 AM PST) + + + + + + | Component | Value | Ref Range | Performed | Pathologist | | | | | At | Signature | + + + + + + | PRODUCT | -1 RED BLOOD | | [facility] | | | DESCRIPTION | CELLS,ADENINE-SALINE | | DEPARTMENT | | | | ADDED,LEUKOCYTES REDUCED | | OF | | | | | | PATHOLOGY | | + + + + + + | PRODUCT | [id number] | | [facility] | | | UNIT [...] + + + + | BLOOD | [address]11 | | [facility] | | | PRODUCT [...] | + + + + + | [facility] | [address] | [place] [address] | | | PATHOLOGY | [address] | | | + + + + + PRODUCT- RED CELLS LEUKOREDUCED (03/28/2012 4:39 AM PST) + + + + + + | Component | Value | Ref Range | Performed | Pathologist | | | | | At | Signature | + + + + + + | PRODUCT | -1 RED BLOOD | | [facility] | | | DESCRIPTION | CELLS,ADENINE-SALINE | | DEPARTMENT | | | | ADDED,LEUKOCYTES REDUCED | | OF | | | | | | PATHOLOGY | | + + + + + + | PRODUCT | [id number] | | [facility] | | | UNIT [...] + + + + | BLOOD | 67170 | | [facility] | | | PRODUCT [...] DEPARTMENT OF | [address] | [place] [address] | | | PATHOLOGY | [address] | | | + + + + + CAPILLARY BLOOD GLUCOSE (NO CHG), POC (03/28/2012 4:17 AM PST) + +---------+ + + + | Component | Value | Ref Range | Performed | Pathologist | | | | | At | Signature | + +---------+ + + + | BLOOD | 119 (H) | 60 - 99 mg/dL | [facility] - | | | GLUCOSE, | | [...] [facility] | [address] | [place], [place] | | | [facility] | [address] | [address] | | | TESTS | | | | + + + + + RAINBOW HOLD TUBE - GREEN TOP (03/28/2012 4:17 AM PST) + + | Specimen | + + | Blood - Blood | + + + + + + + | Performing | Address | City/State/Zipcode | Phone Number | | Organization | | | | + + + + + | [facility] | [address] | [place] [address] | | | SERVICES, JANELL | [address] | | | + + + + + 12 LEAD ECG (03/28/2012 4:08 AM PST) + + + + + + | Component | Value | Ref Range | Performed | Pathologist | | | | | At | Signature | + + + + + + | VENTRICULAR | 81 | BPM | [facility] | | | RATE | | | OF | | | | | | CARDIOLOGY | | + + + + + + | ATRIAL RATE | 81 | BPM | [facility] | | | | | | OF | | | | | | CARDIOLOGY | | + + + + + + | P-R | 146 | ms | [facility] | | | INTERVAL | | | OF | | | | | | CARDIOLOGY | | + + + + + + | QRS | 68 | ms | [facility] | | | DURATION | | | OF | | | | | | CARDIOLOGY | | + + + + + + | QT | 344 | ms | [facility] | | | | | | OF | | | | | | CARDIOLOGY | | + + + + + + | QTC | 399 | ms | [facility] | | | | | | OF | | | | | | CARDIOLOGY | | + + + + + + | P AXIS | 41 | degrees | [facility] | | | | | | OF | | | | | | CARDIOLOGY | | + + + + + + | R AXIS | 15 | degrees | [facility] | | | | | | OF | | | | | | CARDIOLOGY | | + + + + + + | T AXIS | 102 | degrees | [facility] | | | | | | OF | | | | | | CARDIOLOGY | | + + + + + + | EKG | Normal sinus | | [facility] | | | DIAGNOSIS | rhythmNonspecific ST and | | OF | | | | T wave | | CARDIOLOGY | | | | abnormalityAbnormal | | | | | | ECG"I have personally | | | | | | interpreted this report, | | | | | | either alone or with a | | | | | | trainee."Confirmed by | | | | | | RACHEL MESSER ([id number]) on | | | | | | 04/01/2012 8:32:53 AM | | | | + + + + + + + + | Specimen | + + | | + + + + + | Narrative | Performed At | + + + | Please click | [facility] | | on view image for the detailed interpretation from [employer] results. | CARDIOLOGY | + + + + + + + + | Performing | Address | City/State/Zipcode | Phone Number | | Organization | | | | + + + + + | [facility] | [address] | [place], [place] | | | CARDIOLOGY | [address] | [address] | | + + + + + POTASSIUM, WHOLE BLOOD (03/28/2012 3:55 AM PST) + +-------+ + + + | Component | Value | Ref Range | Performed | Pathologist | | | | | At | Signature | + +-------+ + + + | POTASSIUM,W | 4.5 | 3.4 - 5.0 | [facility] | | | HOLE BLD | | mmol/L | LABORATORY | | | | | [...] | + + + + + | [facility] | [address] | [place] [address] | | | SERVICES, CORE | [address] | | | + + + + + PRODUCT - FRESH FROZEN PLASMA (03/28/2012 3:06 AM PST) + + + + + + | Component | Value | Ref Range | Performed | Pathologist | | | | | At | Signature | + + + + + + | PRODUCT | THAWED PLASMA, 5 DAY | | [facility] | | | DESCRIPTION | OUTDATE | | DEPARTMENT | | | | | | OF | | | | | | PATHOLOGY | | + + + + + + | PRODUCT | [id number] | | [facility] | | | UNIT [...] + + + + | BLOOD | 75120 | | [facility] | | | PRODUCT [...] DEPARTMENT OF | [address] | [place] [address] | | | PATHOLOGY | [address] | | | + + + + + PRODUCT - FRESH FROZEN PLASMA (03/28/2012 3:06 AM PST) + + + + + + | Component | Value | Ref Range | Performed | Pathologist | | | | | At | Signature | + + + + + + | PRODUCT | THAWED PLASMA, 5 DAY | | [facility] | | | DESCRIPTION | OUTDATE | | DEPARTMENT | | | | | | OF | | | | | | PATHOLOGY | | + + + + + + | PRODUCT | [id number] | | [facility] | | | UNIT [...] + + + + | BLOOD | 71073 | | [facility] | | | PRODUCT [...] | + + + + + | [facility] | [address] | [place] [address] | | | PATHOLOGY | [address] | | | + + + + + FIBRINOGEN (03/28/2012 1:46 AM PST) + +-------+ + + + | Component | Value | Ref Range | Performed | Pathologist | | | | | At | Signature | + +-------+ + + + | FIBRINOGEN | 340 | 200 - 450 mg/dL | [facility] | | | LEVEL | | | [...] | + + + + + | [facility] | [address] | [place] [address] | | | SERVICESJANELL | [address] | | | + + + + + BASIC METABOLIC SET (NA, K, CL, TCO2, BUN, CR, GLU, CA) (03/28/2012 1:46 AM PST) + + + + + + | Component | Value | Ref Range | Performed | Pathologist | | | | | At | Signature | + + + + + + | GLUCOSE, | 414 (H) | 60 - 99 mg/dL | [facility] | | | PLASMA | | | LABORATORY | | | (LAB) | | | SERVICES, | | | | | | CORE | | + + + + + + | BUN, PLASMA | 3 (L) | 6 - 20 mg/dL | [facility] | | | (LAB) | | | LABORATORY | | | | | | SERVICES, | | | | | | CORE | | + + + + + + | CREATININE | 0.42 (L) | 0.60 - 1.10 | [facility] | | | PLASMA | | mg/dL | LABORATORY | | | (LAB) | | | SERVICES, | | | | | | CORE | | + + + + + + | SODIUM, | 140 | 136 - 145 | [facility] | | | PLASMA | | mmol/L | LABORATORY | | | (LAB) | | | SERVICES, | | | | | | CORE | | + + + + + + | POTASSIUM, | 5.3 (H) | 3.4 - 5.0 | [facility] | [...] + + + | TOTAL CO2, | 20 (L) | 21 - 32 mmol/L | [facility] | | | PLASMA | | | LABORATORY | | | (LAB) | | | SERVICES, | | | | | | CORE | | + + + + + + | CALCIUM, | 6.7 (LL) | 8.6 - 10.2 | [facility] | | | PLASMA | | mg/dL | LABORATORY | | | (LAB) | | | SERVICES, | | | | | | CORE | | + + + + + + | ANION GAP | 6 | 4 - 11 mmol/L | [facility] | | | | [...] [facility] | [address] | [place] [address] | | | SERVICES, CORE | [address] | | | + + + + + INR (03/28/2012 1:46 AM PST) + + + + + + | Component | Value | Ref Range | Performed | Pathologist | | | | | At | Signature | + + + + + + | INR | 1.86 (H) | 0.90 - 1.20 INR | [...] | + + + + + | [facility] | [address] | [place] [address] | | | SERVICES, CORE | [address] | | | + + + + + MAGNESIUM, PLASMA (03/28/2012 1:46 AM PST) + +---------+ + + + [...] [facility] | [address] | [place] [address] | | | SERVICES, CORE | [address] | | | + + + + + ANTIBODY SCREEN (03/28/2012 1:40 AM PST) + + + + + [...] [facility] | [address] | [place] [address] | | | SERVICES, | [address] | | | | TRANSFUSION MEDICINE | | | | + + + + + ABO & RH TYPE (03/28/2012 1:40 AM PST) + + + + + [...] | + + + + + | [facility] | [address] | [place] [address] | | | SERVICES, | [address] | | | | TRANSFUSION MEDICINE | | | | + + + + + PRODUCT- RED CELLS LEUKOREDUCED (03/28/2012 1:37 AM PST) + + + + + + | Component | Value | Ref Range | Performed | Pathologist | | | | | At | Signature | + + + + + + | PRODUCT | -1 RED BLOOD | | [facility] | | | DESCRIPTION | CELLS,ADENINE-SALINE | | DEPARTMENT | | | | ADDED,LEUKOCYTES REDUCED | | OF | | | | | | PATHOLOGY | | + + + + + + | PRODUCT | [id number] | | [facility] | | | UNIT [...] + + + + | BLOOD | 39319 | | [facility] | | | PRODUCT [...] | + + + + + | [facility] DEPART[facility] | [address] | [place] [address] | | | PATHOLOGY | [address] | | | + + + + + PRODUCT- RED CELLS LEUKOREDUCED (03/28/2012 1:37 AM PST) + + + + + + | Component | Value | Ref Range | Performed | Pathologist | | | | | At | Signature | + + + + + + | PRODUCT | -1 RED BLOOD | | [facility] | | | DESCRIPTION | CELLS,ADENINE-SALINE | | DEPARTMENT | | | | ADDED,LEUKOCYTES REDUCED | | OF | | | | | | PATHOLOGY | | + + + + + + | PRODUCT | [id number] | | [facility] | | | UNIT [...] + + + + | BLOOD | 96218 | | [facility] | | | PRODUCT [...] | + + + + + | [facility] DE[facility] | [address] | [place] [address] | | | PATHOLOGY | [address] | | | + + + + + HEMATOCRIT (03/28/2012 12:45 AM PST) + + + + + [...] | + + + + + | [facility] | [address] | [place] [address] | | | SERVICES, CORE | [address] | | | + + + + + CBC (03/27/2012 5:27 AM PST) + + + + + + | Component | Value | Ref Range | Performed | Pathologist | | | | | At | Signature | + + + + + + | WHITE CELL | 16.5 (H) | 4.4 - 11.0 K/cu | [facility] | | | COUNT | | mm | LABORATORY | | | | | | SERVICES, | | | | | | CORE | | + + + + + + | RED CELL | 3.51 (L) | 4.00 - 5.20 | [facility] [...] + + + + | MCV | 85.6 | 80.0 - 96.0 fL | [facility] | | | | | | LABORATORY | | | | | | SERVICES, | | | | | | CORE | | + + + + + + | MCHC | 31.3 (L) | 33.4 - 35.5 | [facility] | | | | | g/dL | LABORATORY | | | | | | SERVICES, | | | | | | CORE | | + + + + + + | RDW | 28.4 (H) | 11.5 - 15.0 % | [facility] | | | | | | LABORATORY | | | | | | SERVICES, | | | | | | CORE | | + + + + + + | PLATELET | 771 (H) | 150 - 400 K/cu | [...] | + + + + + | [facility] | [address] | [place] [address] | | | SERVICES, CORE | [address] | | | + + + + + MAGNESIUM, PLASMA (03/27/2012 5:27 AM PST) + +---------+ + + + [...] [facility] | [address] | [place] [address] | | | SERVICES, CORE | [address] | | | + + + + + INR (03/27/2012 5:27 AM PST) + + + + + + | Component | Value | Ref Range | Performed | Pathologist | | | | | At | Signature | + + + + + + | INR | 1.83 (H) | 0.90 - 1.20 INR | [...] | + + + + + | [facility] | [address] | [place] [address] | | | JANELL SHARP | [address] | | | + + + + + BASIC METABOLIC SET (NA, K, CL, TCO2, BUN, CR, GLU, CA) (03/27/2012 5:27 AM PST) + + + + + + | Component | Value | Ref Range | Performed | Pathologist | | | | | At | Signature | + + + + + + | GLUCOSE, | 84 | 60 - 99 mg/dL | [facility] | | | PLASMA | | | LABORATORY | | | (LAB) | | | SERVICES, | | | | | | CORE | | + + + + + + | BUN, PLASMA | 3 (L) | 6 - 20 mg/dL | [facility] [...] + + + + | SODIUM, | 143 | 136 - 145 | [facility] | [...] + + + + | CHLORIDE, | 113 (H) | 97 - 108 mmol/L | [facility] | | | PLASMA | | | LABORATORY | | | (LAB) | | | SERVICES, | | | | | | CORE | | + + + + + + | TOTAL CO2, | 22 | 21 - 32 mmol/L | [facility] | | | PLASMA | | | LABORATORY | | | (LAB) | | | SERVICES, | | | | | | CORE | | + + + + + + | CALCIUM, | 7.8 (L) | 8.6 - 10.2 | [facility] | | | PLASMA | | mg/dL | LABORATORY | | | (LAB) | | | SERVICES, | | | | | | CORE | | + + + + + + | ANION GAP | 8 | 4 - 11 mmol/L | [facility] | | | | [...] [facility] | [address] | [place] [address] | | | SERVICES, CORE | [address] | | | + + + + + CBC (03/26/2012 4:36 AM PST) + + + + + + | Component | Value | Ref Range | Performed | Pathologist | | | | | At | Signature | + + + + + + | WHITE CELL | 13.7 (H) | 4.4 - 11.0 K/cu | [facility] | | | COUNT | | mm | LABORATORY | | | | | | SERVICES, | | | | | | CORE | | + + + + + + | RED CELL | 3.50 (L) | 4.00 - 5.20 | [facility] [...] + + + + | HEMATOCRIT | 29.8 (L) | 36.0 - 46.0 % | [facility] | | | | | | LABORATORY | | | | | | SERVICES, | | | | | | CORE | | + + + + + + | MCV | 85.0 | 80.0 - 96.0 fL | [facility] | | | | | | LABORATORY | | | | | | SERVICES, | | | | | | CORE | | + + + + + + | MCHC | 31.4 (L) | 33.4 - 35.5 | [facility] | | | | | g/dL | LABORATORY | | | | | | SERVICES, | | | | | | CORE | | + + + + + + | RDW | 27.1 (H) | 11.5 - 15.0 % | [facility] | | | | | | LABORATORY | | | | | | SERVICES, | | | | | | CORE | | + + + + + + | PLATELET | 726 (H) | 150 - 400 K/cu | [...] | + + + + + | [facility] | [address] | [place] [address] | | | SERVICES, CORE | [address] | | | + + + + + MAGNESIUM, PLASMA (03/26/2012 4:36 AM PST) + +---------+ + + + [...] | + + + + + | [facility] | [address] | [place] [address] | | | SERVICES, CORE | [address] | | | + + + + + INR (03/26/2012 4:36 AM PST) + + + + + + | Component | Value | Ref Range | Performed | Pathologist | | | | | At | Signature | + + + + + + | INR | 2.09 (H) | 0.90 - 1.20 INR | [...] | + + + + + | [facility] | [address] | [place] [address] | | | SERVICES, CORE | [address] | | | + + + + + BASIC METABOLIC SET (NA, K, CL, TCO2, BUN, CR, GLU, CA) (03/26/2012 4:36 AM PST) + + + + + + | Component | Value | Ref Range | Performed | Pathologist | | | | | At | Signature | + + + + + + | GLUCOSE, | 82 | 60 - 99 mg/dL | [facility] | | | PLASMA | | | LABORATORY | | | (LAB) | | | SERVICES, | | | | | | CORE | | + + + + + + | BUN, PLASMA | 3 (L) | 6 - 20 mg/dL | [facility] [...] + + + + | SODIUM, | 142 | 136 - 145 | [facility] | | | PLASMA | | mmol/L | LABORATORY | | | (LAB) | | | SERVICES, | | | | | | CORE | | + + + + + + | POTASSIUM, | 3.3 (L) | 3.4 - 5.0 | [facility] | | | PLASMA | | mmol/L | LABORATORY | | | (LAB) | | | SERVICES, | | | | | | CORE | | + + + + + + | CHLORIDE, | 112 (H) | 97 - 108 mmol/L | [facility] | | | PLASMA | | | LABORATORY | | | (LAB) | | | SERVICES, | | | | | | CORE | | + + + + + + | TOTAL CO2, | 21 | 21 - 32 mmol/L | [facility] | | | PLASMA | | | LABORATORY | | | (LAB) | | | SERVICES, | | | | | | CORE | | + + + + + + | CALCIUM, | 7.7 (L) | 8.6 - 10.2 | [facility] | | | PLASMA | | mg/dL | LABORATORY | | | (LAB) | | | SERVICES, | | | | | | CORE | | + + + + + + | ANION GAP | 9 | 4 - 11 mmol/L | [facility] | | | | [...] [facility] | [address] | [place] [address] | | | SERVICES, CORE | [address] | | | + + + + + PHOSPHORUS, PLASMA (03/26/2012 4:36 AM PST) + +---------+ + + + | Component | Value | Ref Range | Performed | Pathologist | | | | | At | Signature | + +---------+ + + + | PHOSPHORUS, | 1.5 (L) | 2.4 - 4.7 mg/dL | [...] | + + + + + | [facility] | [address] | [place] [address] | | | SERVICES, CORE | [address] | | | + + + + + CBC (03/25/2012 3:13 AM PST) + + + + + + | Component | Value | Ref Range | Performed | Pathologist | | | | | At | Signature | + + + + + + | WHITE CELL | 16.8 (H) | 4.4 - 11.0 K/cu | [facility] | | | COUNT | | mm | LABORATORY | | | | | | SERVICES, | | | | | | CORE | | + + + + + + | RED CELL | 3.27 (L) | 4.00 - 5.20 | [facility] | | | COUNT | | M/cu mm | LABORATORY | | | | | | SERVICES, | | | | | | CORE | | + + + + + + | HEMOGLOBIN | 9.0 (L) | 12.0 - 16.0 | [facility] | | | | | g/dL | LABORATORY | | | | | | SERVICES, | | | | | | CORE | | + + + + + + | HEMATOCRIT | 28.4 (L) | 36.0 - 46.0 % | [facility] | | | | | | LABORATORY | | | | | | SERVICES, | | | | | | CORE | | + + + + + + | MCV | 87.0 | 80.0 - 96.0 fL | [facility] | | | | | | LABORATORY | | | | | | SERVICES, | | | | | | CORE | | + + + + + + | MCHC | 31.8 (L) | 33.4 - 35.5 | [facility] | | | | | g/dL | LABORATORY | | | | | | SERVICES, | | | | | | CORE | | + + + + + + | RDW | 27.3 (H) | 11.5 - 15.0 % | [facility] | | | | | | LABORATORY | | | | | | SERVICES, | | | | | | CORE | | + + + + + + | PLATELET | 656 (H) | 150 - 400 K/cu | [...] | + + + + + | [facility] | [address] | [place] [address] | | | SERVICES, CORE | [address] | | | + + + + + MAGNESIUM, PLASMA (03/25/2012 3:13 AM PST) + +---------+ + + + [...] | + + + + + | [facility] | [address] | [place] [address] | | | SERVICES, CORE | [address] | | | + + + + + INR (03/25/2012 3:13 AM PST) + + + + + + | Component | Value | Ref Range | Performed | Pathologist | | | | | At | Signature | + + + + + + | INR | 2.33 (H) | 0.90 - 1.20 INR | [...] | + + + + + | [facility] | [address] | [place] [address] | | | SERVICES, CORE | [address] | | | + + + + + BASIC METABOLIC SET (NA, K, CL, TCO2, BUN, CR, GLU, CA) (03/25/2012 3:13 AM PST) + + + + + [...] + + + | BUN, PLASMA | 3 (L) | 6 - 20 mg/dL | [facility] | | | (LAB) | | | LABORATORY | | | | | | SERVICES, | | | | | | CORE | | + + + + + + | CREATININE | 0.56 (L) | 0.60 - 1.10 | [facility] | | | PLASMA | | mg/dL | LABORATORY | | | (LAB) | | | SERVICES, | | | | | | CORE | | + + + + + + | SODIUM, | 141 | 136 - 145 | [facility] | | | PLASMA | | mmol/L | LABORATORY | | | (LAB) | | | SERVICES, | | | | | | CORE | | + + + + + + | POTASSIUM, | 3.3 (L) | 3.4 - 5.0 | [facility] | | | PLASMA | | mmol/L | LABORATORY | | | (LAB) | | | SERVICES, | | | | | | CORE | | + + + + + + | CHLORIDE, | 110 (H) | 97 - 108 mmol/L | [facility] | | | PLASMA | | | LABORATORY | | | (LAB) | | | SERVICES, | | | | | | CORE | | + + + + + + | TOTAL CO2, | 23 | 21 - 32 mmol/L | [facility] | | | PLASMA | | | LABORATORY | | | (LAB) | | | SERVICES, | | | | | | CORE | | + + + + + + | CALCIUM, | 7.6 (L) | 8.6 - 10.2 | [facility] | | | PLASMA | | mg/dL | LABORATORY | | | (LAB) | | | SERVICES, | | | | | | CORE | | + + + + + + | ANION GAP | 8 | 4 - 11 mmol/L | [facility] | | | | [...] | + + + + + | [facility] | [address] | [place] [address] | | | SERVICES, CORE | [address] | | | + + + + + PHOSPHORUS, PLASMA (03/25/2012 3:13 AM PST) + +---------+ + + + | Component | Value | Ref Range | Performed | Pathologist | | | | | At | Signature | + +---------+ + + + | PHOSPHORUS, | 1.4 (L) | 2.4 - 4.7 mg/dL | [...] | + + + + + | [facility] | [address] | [place] [address] | | | SERVICES, CORE | [address] | | | + + + + + CT PELVIS W IV CONTRAST (03/24/2012 8:56 PM PST) + + + + + + | Component | Value | Ref Range | Performed | Pathologist | | | | | At | Signature | + + + + + + | CT PELVIS W | Study: CT of the | | | | | CONTRAST | pelvis with contrast, IV | | | | | | and oral, | | | | | | [id number] hrs | | | | | | 03/24/12 Indication: | | | | | | Reassess perirectal | | | | | | abscess Comparison: CT | | | | | | 03/15/12 Technique: | | | | | | Axial images were | | | | | | performed through the | | | | | | pelvis after 100cc | | | | | | Omnipaque IV and oral | | | | | | administration of dilute | | | | | | iodinated ofcontrast. | | | | | | Findings: Pelvis: | | | | | | Postsurgical changes | | | | | | are redemonstrated | | | | | | within the | | | | | | cecum.Pericecal fat | | | | | | stranding and cecal wall | | | | | | thickening are | | | | | | observed, asbefore. A | | | | | | few locules of | | | | | | anti-dependent gas are | | | | | | seen along theposterior | | | | | | cecal wall, | | | | | | indeterminate but | | | | | | possibly | | | | | | representingpneumatosis | | | | | | within the thickened | | | | | | cecal wall. Given the | | | | | | history ofnonocclusive | | | | | | ileocolic thrombus, this | | | | | | may be related to | | | | | | ischemia.Right ureter is | | | | | | ectatic but tapers | | | | | | distally near the | | | | | | bladder. Asmall focal | | | | | | rim enhancing fluid | | | | | | collection is identified | | | | | | along theright side of | | | | | | the rectum, measuring | | | | | | 3.7 x 1.7 cm, not | | | | | | significantlychanged. | | | | | | Uterus is surgically | | | | | | absent. Adnexa are | | | | | | unremarkable.Urinary | | | | | | bladder is unremarkable, | | | | | | and Wolf has been | | | | | | removed since theprior | | | | | | study. No suspicious | | | | | | osseous lesions. | | | | | | Impression:1. | | | | | | Continued presence of | | | | | | right perirectal | | | | | | abscess, localized, | | | | | | notsignificantly changed | | | | | | since 03/15 2. Mild | | | | | | cecal irritative signs | | | | | | and soft suggestion of | | | | | | gas in thewall. Report | | | | | | is consistent with the | | | | | | preliminary report given | | | | | | by theradiology on-call | | | | | | resident. Attending | | | | | | Radiologists: Tom Ruiz | | | | | | Fortino OrozcoAuthor: | | | | | | Tom Orozco M.D. I | | | | | | have personally viewed | | | | | | this procedure/exam, | | | | | | reviewed this report,and | | | | | | made changes to it | | | | | | where appropriate. | | | | | | Final/Electronically | | | | | | signed / Tom Ruiz | | | | | | Pam 03/25/2012 12:49 | | | | | | [...] + +---------+ + + C. DIFFICILE TOXIN (03/24/2012 5:57 AM PST) + + + + + [...] | + + + + + | [facility] | [address] | [place] [address] | | | SERVICES, CORE | [address] | | | + + + + + CBC (03/24/2012 5:32 AM PST) + + + + + + | Component | Value | Ref Range | Performed | Pathologist | | | | | At | Signature | + + + + + + | WHITE CELL | 17.6 (H) | 4.4 - 11.0 K/cu | [facility] | | | COUNT | | mm | LABORATORY | | | | | | SERVICES, | | | | | | CORE | | + + + + + + | RED CELL | 3.63 (L) | 4.00 - 5.20 | [facility] | | | COUNT | | M/cu mm | LABORATORY | | | | | | SERVICES, | | | | | | CORE | | + + + + + + | HEMOGLOBIN | 9.6 (L) | 12.0 - 16.0 | [facility] | | | | | g/dL | LABORATORY | | | | | | SERVICES, | | | | | | CORE | | + + + + + + | HEMATOCRIT | 30.9 (L) | 36.0 - 46.0 % | [facility] | | | | | | LABORATORY | | | | | | SERVICES, | | | | | | CORE | | + + + + + + | MCV | 85.0 | 80.0 - 96.0 fL | [facility] | | | | | | LABORATORY | | | | | | SERVICES, | | | | | | CORE | | + + + + + + | MCHC | 31.3 (L) | 33.4 - 35.5 | [facility] | | | | | g/dL | LABORATORY | | | | | | SERVICES, | | | | | | CORE | | + + + + + + | RDW | 27.5 (H) | 11.5 - 15.0 % | [facility] | | | | | | LABORATORY | | | | | | SERVICES, | | | | | | CORE | | + + + + + + | PLATELET | 668 (H) | 150 - 400 K/cu | [...] | + + + + + | [facility] | [address] | [place] [address] | | | SERVICES, CORE | [address] | | | + + + + + MAGNESIUM, PLASMA (03/24/2012 5:32 AM PST) + +---------+ + + + [...] [facility] | [address] | [place] [address] | | | ARON, JANELL | [address] | | | + + + + + INR (03/24/2012 5:32 AM PST) + + + + + + | Component | Value | Ref Range | Performed | Pathologist | | | | | At | Signature | + + + + + + | INR | 2.36 (H) | 0.90 - 1.20 INR | [...] | + + + + + | [facility] | [address] | [place] [address] | | | SERVICES, CORE | [address] | | | + + + + + BASIC METABOLIC SET (NA, K, CL, TCO2, BUN, CR, GLU, CA) (03/24/2012 5:32 AM PST) + + + + + + | Component | Value | Ref Range | Performed | Pathologist | | | | | At | Signature | + + + + + + | GLUCOSE, | 116 (H) | 60 - 99 mg/dL | [facility] | | | PLASMA | | | LABORATORY | | | (LAB) | | | SERVICES, | | | | | | CORE | | + + + + + + | BUN, PLASMA | 2 (L) | 6 - 20 mg/dL | [facility] | | | (LAB) | | | LABORATORY | | | | | | SERVICES, | | | | | | CORE | | + + + + + + | CREATININE | 0.52 (L) | 0.60 - 1.10 | [facility] | | | PLASMA | | mg/dL | LABORATORY | | | (LAB) | | | SERVICES, | | | | | | CORE | | + + + + + + | SODIUM, | 142 | 136 - 145 | [facility] | [...] + + + + | CHLORIDE, | 110 (H) | 97 - 108 mmol/L | [facility] | | | PLASMA | | | LABORATORY | | | (LAB) | | | SERVICES, | | | | | | CORE | | + + + + + + | TOTAL CO2, | 23 | 21 - 32 mmol/L | [facility] | | | PLASMA | | | LABORATORY | | | (LAB) | | | SERVICES, | | | | | | CORE | | + + + + + + | CALCIUM, | 7.9 (L) | 8.6 - 10.2 | [facility] | | | PLASMA | | mg/dL | LABORATORY | | | (LAB) | | | SERVICES, | | | | | | CORE | | + + + + + + | ANION GAP | 9 | 4 - 11 mmol/L | [facility] | | | | [...] | + + + + + | [facility] | [address] | [place] [address] | | | SERVICES, CORE | [address] | | | + + + + + CULTURE, URINE BACTI (03/24/2012 12:39 AM PST) + + + + + + | Component | Value | Ref Range | Performed | Pathologist | | | | | At | Signature | + + + + + + | CULTURE | C UrineSource: U | | [facility] - | | | RESULT | Midstream | | [facility] - | | | | Final | | [place] | | | | CULTURE RESULT:< 10,000 | | | | | | cfu/ml Insignificant | | | | | | growth | | | | + + + + + + + + | Specimen | + + | Urine - Urine | + + + + + + + | Performing | Address | City/State/Zipcode | Phone Number | | Organization | | | | + + + + + | [facility] | [address] | [place] [address] | | | [place] | | | | + + + + + TELMA FARAH (03/24/2012 12:39 AM PST) + + + + + + | Component | Value | Ref Range | Performed | Pathologist | | | | | At | Signature | + + + + + + | COLOR(UR) | Yellow | (none) | [facility] | | | | | | LABORATORY | | | | | | SERVICES, | | | | | | CORE | | + + + + + + | APPEARANCE | Sl.Cloudy | (none) | [facility] | | | | | [...] + + + + | PH(UR) | 6.0 | 5.0 - 8.0 | [facility] | | | | | | LABORATORY | | | | | | SERVICES, | | | | | | CORE | | + + + + + + | BLOOD | Small (A) | Negative | [facility] | | [...] + + + + | LEUKOCYTE | Moderate (A) | Negative | [facility] | | | ESTERASE | | | LABORATORY | | | | | | SERVICES, | | | | | | CORE | | + + + + + + | SPECIFIC | 1.009 | 1.005 - 1.030 | [facility] | [...] | + + + + + | [facility] | [address] | [place] [address] | | | SERVICES, CORE | [address] | | | + + + + + URINE, MICROSCOPIC EXAM (03/24/2012 12:39 AM PST) + + + + + + | Component | Value | Ref Range | Performed | Pathologist | | | | | At | Signature | + + + + + + | RED CELLS | 8 (H) | 0 - 3 /hpf | [facility] | | | | | | LABORATORY | | | | | | SERVICES, | | | | | | CORE | | + + + + + + | WHITE CELLS | 18 (H) | 0 - 5 /hpf | [facility] | | | | | | LABORATORY | | | | | | SERVICES, | | | | | | CORE | | + + + + + + | WBC CLUMPS | Present | (none) | [facility] | | | | | | LABORATORY | | | | | | SERVICES, | | | | | | CORE | | + + + + + + | BACTERIA | Few (A) | None /hpf | [facility] | | | | | | LABORATORY | | | | | | SERVICES, | | | | | | CORE | | + + + + + + | YEAST (LAB) | None | None /hpf | [facility] | | | | | | LABORATORY | | | | | | SERVICES, | | | | | | CORE | | + + + + + + | SQUAMOUS | Moderate (A) | None /hpf | [facility] | | | EPITHELIAL | | | LABORATORY | | | | | | SERVICES, | | | | | | CORE | | + + + + + + | MUCOUS | Aniket (A) | None /hpf | [facility] | | | | | | LABORATORY | | | | | | SERVICES, | | | | | | CORE | | + + + + + + | TRICHOMONAS | None | None /hpf | [facility] | | | | | | LABORATORY | | | | | | SERVICES, | | | | | | CORE | | + + + + + + | NON-SQUAMOU | Aniket (A) | None /hpf | [facility] | | | S EPITH | | | LABORATORY | | | | | | SERVICES, | | | | | | CORE | | + + + + + + | HYALINE | 0 | 0 - 2 /lpf | [facility] | | | CASTS | | | LABORATORY | | | | | | SERVICES, | | | | | | CORE | | + + + + + + | GRANULAR | 0 | 0 - 2 /lpf | [facility] | | | CASTS | | | LABORATORY | | | | | | SERVICES, | | | | | | CORE | | + + + + + + | CELLULAR | 0 | <=0 /lpf | [facility] | | | CASTS | | | LABORATORY | | | | | | SERVICES, | | | | | | CORE | | + + + + + + | TRIPLE P04 | None | None /hpf | [facility] | | | CRYSTALS | | | LABORATORY | | | | | | SERVICES, | | | | | | CORE | | + + + + + + | CALCIUM | None | None /hpf | [facility] | | | OXALATE | | | LABORATORY | | | VIJAY | | | SERVICES, | | | | | | CORE | | + + + + + + | URIC ACID | None | None /hpf | [facility] | | | CRYSTALS | | | LABORATORY | | | | | | SERVICES, | | | | | | CORE | | + + + + + + | AMORPHOUS | None [...] [facility] | [address] | [place] [address] | | | SERVICES, CORE | [address] | | | + + + + + URINE SCREEN FOR CULTURE (03/24/2012 12:39 AM PST) + + + + + + | Component | Value | Ref Range | Performed | Pathologist | | | | | At | Signature | + + + + + + | URINE | Positive (A) | Negative | [facility] | | [...] | + + + | Culture Screen Positive, specimen sent for culture. | [facility] | | | LABORATORY | | | SERVICES, CORE | + + + + + + + + | Performing | Address | City/State/Zipcode | Phone Number | | Organization | | | | + + + + + | [facility] | [address] | [place] [address] | | | SERVICES, CORE | [address] | | | + + + + + CULTURE, BLOOD BACTI & YEAST [facility] (03/23/2012 11:22 PM PST) + + + + + + | Component | Value | Ref Range | Performed | Pathologist | | | | | At | Signature | + + + + + + | BLOOD | Final Report:No Bacteria | Final Report:No | [facility] | | | CULTURE | or Yeast isolated at 5 | Bacteria or | LABORATORY | | | [facility] | days.Comment: This is a | Yeast isolated | SERVICES, | | | | corrected result. | at 5 days., | CORE | | | | Previous result was No | Sent for | | | | | growth to date. on | Subculture, No | | | | | 03/25/2012t 0014. | growth to date. | | | + + + + + + + + | Specimen | + + | Blood - PICC line | + + + + + + + | Performing | Address | City/State/Zipcode | Phone Number | | Organization | | | | + + + + + | [facility] | [address] | [place] [address] | | | SERVICES, CORE | [address] | | | + + + + + 12 LEAD ECG (03/23/2012 4:00 PM PST) + + + + + + | Component | Value | Ref Range | Performed | Pathologist | | | | | At | Signature | + + + + + + | VENTRICULAR | 103 | BPM | [facility] | | | RATE | | | OF | | | | | | CARDIOLOGY | | + + + + + + | ATRIAL RATE | 103 | BPM | [facility] | | | | | | OF | | | | | | CARDIOLOGY | | + + + + + + | P-R | 150 | ms | [facility] | | | INTERVAL | | | OF | | | | | | CARDIOLOGY | | + + + + + + | QRS | 76 | ms | [facility] | | | DURATION | | | OF | | | | | | CARDIOLOGY | | + + + + + + | QT | 306 | ms | [facility] | | | | | | OF | | | | | | CARDIOLOGY | | + + + + + + | QTC | 400 | ms | [facility] | | | | | | OF | | | | | | CARDIOLOGY | | + + + + + + | P AXIS | 20 | degrees | [facility] | | | | | | OF | | | | | | CARDIOLOGY | | + + + + + + | R AXIS | 8 | degrees | [facility] | | | | | | OF | | | | | | CARDIOLOGY | | + + + + + + | T AXIS | 31 | degrees | [facility] | | | | | | OF | | | | | | CARDIOLOGY | | + + + + + + | EKG | Sinus | | [facility] | | | DIAGNOSIS | tachycardiaNonspecific T | | OF | | | | wave | | CARDIOLOGY | | | | abnormalityAbnormal | | | | | | ECG"I have personally | | | | | | interpreted this report, | | | | | | either alone or with a | | | | | | trainee."Confirmed by | | | | | | RACHEL MESSER ([id number]) on | | | | | | 03/25/2012 8:07:08 AM | | | | + + + + + + + + | Specimen | + + | | + + + + + | Narrative | Performed At | + + + | Please click | [facility] | | on view image for the detailed interpretation from [employer] results. | CARDIOLOGY | + + + + + + + + | Performing | Address | City/State/Zipcode | Phone Number | | Organization | | | | + + + + + | [facility] | [address] | [place], [place] | | | CARDIOLOGY | [address] | [address] | | + + + + + VASC LAB PORTABLE CAROTID DUPLEX RIGHT (03/23/2012 10:04 AM PST) + + + + + + | Component | Value | Ref Range | Performed | Pathologist | | | | | At | Signature | + + + + + + | VASC LAB | CEREBROVASCULAR | | | | | PORTABLE | EXAMINATION: | | | | | CAROTID | 03/23/2012 Dictated | | | | | DUPLEX | 03/24/2012 INDICATION: | | | | | RIGHT | History of REED. | | | | | | FINDINGS: Arm blood | | | | | | pressures were not | | | | | | obtained. Duplex | | | | | | examinationof the right | | | | | | carotid bifurcation | | | | | | demonstrates minimal | | | | | | plaquing of theright | | | | | | internal carotid artery | | | | | | proximally and minimal | | | | | | plaquing of theright | | | | | | external carotid artery. | | | | | | There are minimal | | | | | | flow velocityalterations | | | | | | of the right internal | | | | | | and external carotid | | | | | | arteries. Theright | | | | | | vertebral artery is | | | | | | patent with antegrade | | | | | | flow. IMPRESSION: Right | | | | | | cerebrovascular | | | | | | examination | | | | | | demonstrating less than | | | | | | 50%diameter stenosis of | | | | | | the right internal and | | | | | | external carotid | | | | | | arteriesand patency of | | | | | | the vertebral artery. | | | | | | END IMPRESSION | | | | | | Attending Radiologists: | | | | | | ,Author: AMALIA Unger | | | | | | Fortino EDWARDS I have | | | | | | personally viewed this | | | | | | procedure/exam, reviewed | | | | | | this report,and made | | | | | | changes to it where | | | | | | appropriate. | | | | | | Final/Electronically | | | | | | isaías / Amalia Unger | | | | | | Jorge Preliminary / | | | | | | Davina Sheikh | | | | + + + + + + + + | Specimen | + + | | + + + +---------+ + + | Performing | Address | City/State/Zipcode | Phone Number | | Organization | | | | + +---------+ + + | [facility] | | | | | RADIOLOGY | | | | + +---------+ + + CBC (03/23/2012 7:36 AM PST) + + + + + + | Component | Value | Ref Range | Performed | Pathologist | | | | | At | Signature | + + + + + + | WHITE CELL | 18.6 (H) | 4.4 - 11.0 K/cu | [facility] | | | COUNT | | mm | LABORATORY | | | | | | SERVICES, | | | | | | CORE | | + + + + + + | RED CELL | 3.45 (L) | 4.00 - 5.20 | [facility] [...] + + + + | HEMATOCRIT | 29.4 (L) | 36.0 - 46.0 % | [facility] | | | | | | LABORATORY | | | | | | SERVICES, | | | | | | CORE | | + + + + + + | MCV | 85.3 | 80.0 - 96.0 fL | [facility] | | | | | | LABORATORY | | | | | | SERVICES, | | | | | | CORE | | + + + + + + | MCHC | 32.2 (L) | 33.4 - 35.5 | [facility] | | | | | g/dL | LABORATORY | | | | | | SERVICES, | | | | | | CORE | | + + + + + + | RDW | 28.2 (H) | 11.5 - 15.0 % | [facility] | | | | | | LABORATORY | | | | | | SERVICES, | | | | | | CORE | | + + + + + + | PLATELET | 686 (H) | 150 - 400 K/cu | [...] | + + + + + | [facility] | [address] | [place] [address] | | | JANELL SHARP | [address] | | | + + + + + MAGNESIUM, PLASMA (03/23/2012 7:36 AM PST) + +-------+ + + + [...] SERVICES, | | | | | | JANELL | | + +-------+ + + + + + | Specimen | + + | Blood - Blood | + + + + + + + | Performing | Address | City/State/Zipcode | Phone Number | | Organization | | | | + + + + + | [facility] | [address] | [place] [address] | | | SERVICES, CORE | [address] | | | + + + + + INR (03/23/2012 7:36 AM PST) + + + + + + | Component | Value | Ref Range | Performed | Pathologist | | | | | At | Signature | + + + + + + | INR | 2.49 (H) | 0.90 - 1.20 INR | [...] | + + + + + | [facility] | [address] | [place] [address] | | | SERVICESJANELL | [address] | | | + + + + + BASIC METABOLIC SET (NA, K, CL, TCO2, BUN, CR, GLU, CA) (03/23/2012 7:36 AM PST) + +---------+ + + + | Component | Value | Ref Range | Performed | Pathologist | | | | | At | Signature | + +---------+ + + + | GLUCOSE, | 101 (H) | 60 - 99 mg/dL | [facility] | | | PLASMA | | | LABORATORY | | | (LAB) | | | SERVICES, | | | | | | CORE | | + +---------+ + + + | BUN, PLASMA | 3 (L) | 6 - 20 mg/dL | [facility] | | | (LAB) | | | LABORATORY | | | | | | SERVICES, | | | | | | CORE | | + +---------+ + + + | CREATININE | 0.65 | 0.60 - 1.10 | [facility] | [...] +---------+ + + + | CHLORIDE, | 112 (H) | 97 - 108 mmol/L | [facility] | | | PLASMA | | | LABORATORY | | | (LAB) | | | SERVICES, | | | | | | CORE | | + +---------+ + + + | TOTAL CO2, | 20 (L) | 21 - 32 mmol/L | [facility] | | | PLASMA | | | LABORATORY | | | (LAB) | | | SERVICES, | | | | | | CORE | | + +---------+ + + + | CALCIUM, | 7.6 (L) | 8.6 - 10.2 | [facility] | | | PLASMA | | mg/dL | LABORATORY | | | (LAB) | | | SERVICES, | | | | | | CORE | | + +---------+ + + + | ANION GAP | 9 | 4 - 11 mmol/L | [facility] | | | | [...] | + + + + + | [facility] | [address] | [place] [address] | | | SERVICES, CORE | [address] | | | + + + + + LEGIONELLA AG, URINE (03/23/2012 12:59 AM PST) + + + + + + | Component | Value | Ref Range | Performed | Pathologist | | | | | At | Signature | + + + + + + | LEGIONELLA | NegativeComment: A | Negative | [facility] | | | AG, UR | negative result does not | | [facility] | | | | rule out the | | [facility] | | | | possibility ofLegionella | | | | | | infection due to other | | | | | | serogroups or species | | | | | | ofLegionella.INTERPRETIV | | | | | | E INFORMATION: | | | | | | Legionella pneumophila | | | | | | Antigen, UrineThis assay | | | | | | detects Legionella | | | | | | pneumophila serogroup | | | | | | one (1)antigen.Performed | | | | | | by [facility] | | | | | | [facility],[address] [place] [address] | | | | | | [place] [address] | | | | | | [phone]. | | | | | | keith, Kaitlin Lau, | | | | | | , Lab. Director | | | | + + + + + + + + | Specimen | + + | Urine - Urine | + + + + + + + | Performing | Address | City/State/Zipcode | Phone Number | | Organization | | | | + + + + + | [facility] | [address] | [place], [place] | | | [facility] | | [address] | | + + + + + VANCOMYCIN, TROUGH (03/23/2012 12:19 AM PST) + +-------+ + + + | Component | Value | Ref Range | Performed | Pathologist | | | | | At | Signature | + +-------+ + + + | VANCOMYCIN, | 14.1 | 5.0 - 15.0 | [facility] | | | TROUGH | | ug/mL | LABORATORY | | | | | [...] | + + + + + | [facility] | [address] | [place] [address] | | | SERVICES, CORE | [address] | | | + + + + + X-RAY CHEST 2 VIEW (03/22/2012 7:22 PM PST) + + + + + + | Component | Value | Ref Range | Performed | Pathologist | | | | | At | Signature | + + + + + + | CHEST, 2 | STUDY: CHEST 2 VIEWS | | | | | VIEWS [place] | 03/22/12 19:22:00 | | | | | STEREO | CLINICAL DATA: Pneumonia | | | | | | COMPARISON: 03/20/12 | | | | | | FINDINGS: The support | | | | | | equipment is unchanged. | | | | | | The cardia | | | | | | mediastinalsilhouette is | | | | | | stable. Elevation of | | | | | | the right hemidiaphragm | | | | | | isredemonstrated. | | | | | | Right upper lobe | | | | | | consolidation is | | | | | | slightly lessconspicuous | | | | | | than on the prior | | | | | | study. Left midlung | | | | | | groundglass | | | | | | andconsolidation has | | | | | | slightly increased in | | | | | | size. There is no | | | | | | rightpleural effusion | | | | | | with increasing right | | | | | | lower lobe atelectasis. | | | | | | IMPRESSION: Improving | | | | | | right upper lobe | | | | | | consolidation with | | | | | | enlarging left | | | | | | midlungconsolidation. | | | | | | New right pleural | | | | | | effusion with increasing | | | | | | right lower | | | | | | lobeatelectasis. | | | | | | Attending Radiologists: | | | | | | Libby Moreno, | | | | | | M.D.Author: Libby | | | | | | Tiffanie, M.D. I have | | | | | | personally viewed this | | | | | | procedure/exam, reviewed | | | | | | this report,and made | | | | | | changes to it where | | | | | | appropriate. | | | | | | Final/Electronically | | | | | | signed / Libby | | | | | | Fuss 03/23/2012 8:47 AM | | | | | | [...] + CULTURE, BLOOD BACTI & YEAST ARTUR (03/22/2012 7:09 PM PST) + + + + + + | Component | Value | Ref Range | Performed | Pathologist | | | | | At | Signature | + + + + + + | BLOOD | Final Report:No Bacteria | Final Report:No | [facility] | | | CULTURE | or Yeast isolated at 5 | Bacteria or | LABORATORY | | | [facility] | days.Comment: This is a | Yeast isolated | SERVICES, | | | | corrected result. | at 5 days., | CORE | | | | Previous result was No | Sent for | | | | | growth to date. on | Subculture, No | | | | | 03/24/2012 0012. | growth to date. | | | + + + + + + + + | Specimen | + + | Blood - Hand - left | + + + + + + + | Performing | Address | City/State/Zipcode | Phone Number | | Organization | | | | + + + + + | [facility] | [address] | [place] [address] | | | JANELL [address] | [address] | | | + + + + + CULTURE, BLOOD BACTI & [facility] (03/22/2012 7:08 PM PST) + + + + + + | Component | Value | Ref Range | Performed | Pathologist | | | | | At | Signature | + + + + + + | BLOOD | Final Report:No Bacteria | Final Report:No | [facility] | | | CULTURE | or Yeast isolated at 5 | Bacteria or | LABORATORY | | | [facility] | days.Comment: This is a | Yeast isolated | SERVICES, | | | | corrected result. | at 5 days., | CORE | | | | Previous result was No | Sent for | | | | | growth to date. on | Subculture, No | | | | | 2012at [id number]. | growth to date. | | | + + + + + + + + | Specimen | + + | Blood - Antecubital | | - right | + + + + + + + | Performing | Address | City/State/Zipcode | Phone Number | | Organization | | | | + + + + + | [facility] | [address] | [place] [address] | | | SERVICES, JANELL | [address] | | | + + + + + 12 LEAD ECG (03/22/2012 2:58 PM PST) + + + + + + | Component | Value | Ref Range | Performed | Pathologist | | | | | At | Signature | + + + + + + | VENTRICULAR | 87 | BPM | [facility] | | | RATE | | | OF | | | | | | CARDIOLOGY | | + + + + + + | ATRIAL RATE | 87 | BPM | [facility] | | | | | | OF | | | | | | CARDIOLOGY | | + + + + + + | P-R | 138 | ms | [facility] | | | INTERVAL | | | OF | | | | | | CARDIOLOGY | | + + + + + + | QRS | 76 | ms | [facility] | | | DURATION | | | OF | | | | | | CARDIOLOGY | | + + + + + + | QT | 382 | ms | [facility] | | | | | | OF | | | | | | CARDIOLOGY | | + + + + + + | QTC | 459 | ms | [facility] | | | | | | OF | | | | | | CARDIOLOGY | | + + + + + + | P AXIS | 58 | degrees | [facility] | | | | | | OF | | | | | | CARDIOLOGY | | + + + + + + | R AXIS | 27 | degrees | [facility] | | | | | | OF | | | | | | CARDIOLOGY | | + + + + + + | T AXIS | 55 | degrees | [facility] | | | | | | OF | | | | | | CARDIOLOGY | | + + + + + + | EKG | Normal sinus rhythmLow | | [facility] | | | DIAGNOSIS | voltage QRSBorderline | | OF | | | | ECG"I have personally | | CARDIOLOGY | | | | interpreted this report, | | | | | | either alone or with a | | | | | | trainee."Confirmed by | | | | | | XIN GARZON ([id number]) | | | | | | on 03/22/2012 4:25:06 PM | | | | + + + + + + + + | Specimen | + + | | + + + + + | Narrative | Performed At | + + + | Please click | [facility] | | on view image for the detailed interpretation from HashTip results. | CARDIOLOGY | + + + + + + + + | Performing | Address | City/State/Zipcode | Phone Number | | Organization | | | | + + + + + | [facility] | [address] | [place], [place] | | | CARDIOLOGY | [address] | [address] | | + + + + + CAPILLARY BLOOD GLUCOSE (NO CHG), POC (03/22/2012 10:25 AM PST) + +---------+ + + + | Component | Value | Ref Range | Performed | Pathologist | | | | | At | Signature | + +---------+ + + + | BLOOD | 126 (H) | 60 - 99 [...] [facility] | [address] | [place], [place] | | | [facility] | [facility] | [address] | | | TESTS | | | | + + + + + CAPILLARY BLOOD GLUCOSE (NO CHG), POC (03/22/2012 7:03 AM PST) + +---------+ + + + | Component | Value | Ref Range | Performed | Pathologist | | | | | At | Signature | + +---------+ + + + | BLOOD | 110 (H) | 60 - 99 mg/dL | [facility] - | | | GLUCOSE, | | [...] [facility] | [address] | [place], [place] | | | [facility] | [address] | [address] | | | TESTS | | | | + + + + + CBC (03/22/2012 6:25 AM PST) + + + + + + | Component | Value | Ref Range | Performed | Pathologist | | | | | At | Signature | + + + + + + | WHITE CELL | 24.3 (H) | 4.4 - 11.0 K/cu | [facility] | | | COUNT | | mm | LABORATORY | | | | | | SERVICES, | | | | | | CORE | | + + + + + + | RED CELL | 3.54 (L) | 4.00 - 5.20 | [facility] | | | COUNT | | M/cu mm | LABORATORY | | | | | | SERVICES, | | | | | | CORE | | + + + + + + | HEMOGLOBIN | 9.6 (L) | 12.0 - 16.0 | [facility] | | | | | g/dL | LABORATORY | | | | | | SERVICES, | | | | | | CORE | | + + + + + + | HEMATOCRIT | 29.9 (L) | 36.0 - 46.0 % | [...] + + + | MCHC | 32.0 (L) | 33.4 - 35.5 | [facility] | | | | | g/dL | LABORATORY | | | | | | SERVICES, | | | | | | CORE | | + + + + + + | RDW | 26.9 (H) | 11.5 - 15.0 % | [facility] | | | | | | LABORATORY | | | | | | SERVICES, | | | | | | CORE | | + + + + + + | PLATELET | 559 (H) | 150 - 400 K/cu | [...] | + + + + + | [facility] | [address] | [place] [address] | | | SERVICES, CORE | [address] | | | + + + + + MAGNESIUM, PLASMA (03/22/2012 6:25 AM PST) + +-------+ + + + [...] [facility] | [address] | [place] [address] | | | JANELL SHARP | [address] | | | + + + + + INR (03/22/2012 6:25 AM PST) + + + + + + | Component | Value | Ref Range | Performed | Pathologist | | | | | At | Signature | + + + + + + | INR | 3.03 (H) | 0.90 - 1.20 INR | [...] valves (2.5 - 3.5) INR | [facility], CORE | + + + + + + + + | Performing | Address | City/State/Zipcode | Phone Number | | Organization | | | | + + + + + | [facility] | [address] | [place] [address] | | | SERVICES, CORE | [address] | | | + + + + + BASIC METABOLIC SET (NA, K, CL, TCO2, BUN, CR, GLU, CA) (03/22/2012 6:25 AM PST) + + + + + + | Component | Value | Ref Range | Performed | Pathologist | | | | | At | Signature | + + + + + + | GLUCOSE, | 101 (H) | 60 - 99 mg/dL | [facility] | | | PLASMA | | | LABORATORY | | | (LAB) | | | SERVICES, | | | | | | CORE | | + + + + + + | BUN, PLASMA | 3 (L) | 6 - 20 mg/dL | [facility] | | | (LAB) | | | LABORATORY | | | | | | SERVICES, | | | | | | CORE | | + + + + + + | CREATININE | 0.52 (L) | 0.60 - 1.10 | [facility] | | | PLASMA | | mg/dL | LABORATORY | | | (LAB) | | | SERVICES, | | | | | | CORE | | + + + + + + | SODIUM, | 141 [...] + + + + | CHLORIDE, | 112 (H) | 97 - 108 mmol/L | [facility] | | | PLASMA | | | LABORATORY | | | (LAB) | | | SERVICES, | | | | | | CORE | | + + + + + + | TOTAL CO2, | 21 | 21 - 32 mmol/L | [facility] | | | PLASMA | | | LABORATORY | | | (LAB) | | | SERVICES, | | | | | | CORE | | + + + + + + | CALCIUM, | 7.5 (L) | 8.6 - 10.2 | [facility] | | | PLASMA | | mg/dL | LABORATORY | | | (LAB) | | | SERVICES, | | | | | | CORE | | + + + + + + | ANION GAP | 8 | 4 - 11 mmol/L | [facility] | | | | [...] [facility] | [address] | [place] [address] | | | SERVICES, CORE | [address] | | | + + + + + POTASSIUM, PLASMA (03/22/2012 6:25 AM PST) + +---------+ + + + | Component | Value | Ref Range | Performed | Pathologist | | | | | At | Signature | + +---------+ + + + | POTASSIUM, | | 3.4 - 5.0 | [facility] | [...] | + + + + + | [facility] | [address] | [place] [address] | | | SERVICES, CORE | [address] | | | + + + + + CAPILLARY BLOOD GLUCOSE (NO CHG), POC (03/22/2012 12:46 AM PST) + +---------+ + + + [...] [facility] | [address] | [place], [place] | | | [facility] | [address] | [address] | | | TESTS | | | | + + + + + POTASSIUM, PLASMA (03/21/2012 10:50 PM PST) + +---------+ + + + [...] | + + + + + | [facility] | [address] | [place] [address] | | | SERVICES, CORE | [address] | | | + + + + + CAPILLARY BLOOD GLUCOSE (NO CHG), POC (03/21/2012 6:17 PM PST) + +---------+ + + + [...] [facility] | [address] | [place], [place] | | | [facility] | [address] | [address] | | | TESTS | | | | + + + + + 12 LEAD ECG (03/21/2012 3:08 PM PST) + + + + + + | Component | Value | Ref Range | Performed | Pathologist | | | | | At | Signature | + + + + + + | VENTRICULAR | 113 | BPM | [facility] | | | RATE | | | OF | | | | | | CARDIOLOGY | | + + + + + + | ATRIAL RATE | 113 | BPM | [facility] | | | | | | OF | | | | | | CARDIOLOGY | | + + + + + + | P-R | 154 | ms | [facility] | | | INTERVAL | | | OF | | | | | | CARDIOLOGY | | + + + + + + | QRS | 78 | ms | [facility] | | | DURATION | | | OF | | | | | | CARDIOLOGY | | + + + + + + | QT | 336 | ms | [facility] | | | | | | OF | | | | | | CARDIOLOGY | | + + + + + + | QTC | 460 | ms | [facility] | | | | | | OF | | | | | | CARDIOLOGY | | + + + + + + | P AXIS | 12 | degrees | [facility] | | | | | | OF | | | | | | CARDIOLOGY | | + + + + + + | R AXIS | 27 | degrees | [facility] | | | | | | OF | | | | | | CARDIOLOGY | | + + + + + + | T AXIS | 9 | degrees | [facility] | | | | | | OF | | | | | | CARDIOLOGY | | + + + + + + | EKG | Sinus tachycardia with | | [facility] | | | DIAGNOSIS | Fusion | | OF | | | | complexesNonspecific T | | CARDIOLOGY | | | | wave abnormalityAbnormal | | | | | | ECGConfirmed by | | | | | | MAGY RAPHAEL ([id number]) on | | | | | | 03/21/2012 10:26:41 PM | | | | + + + + + + + + | Specimen | + + | | + + + + + | Narrative | Performed At | + + + | Please click | [facility] | | on view image for the detailed interpretation from HashTip results. | CARDIOLOGY | + + + + + + + + | Performing | Address | City/State/Zipcode | Phone Number | | Organization | | | | + + + + + | [facility] | [address] | [place], [place] | | | CARDIOLOGY | [address] | [address] | | + + + + + CAPILLARY BLOOD GLUCOSE (NO CHG), POC (03/21/2012 9:58 AM PST) + +-------+ + + + [...] + + + | [facility] | [address] | [place], [place] | | | [facility] | [address] | [address] | | | TESTS | | | | + + + + + VASC LAB ANKLE BRACH INDICS W WAVEFORM BILAT (03/21/2012 8:17 AM PST) + + + + + + | Component | Value | Ref Range | Performed | Pathologist | | | | | At | Signature | + + + + + + | [facility] LAB | ANKLE BRACHIAL INDEX | | | | | ANKLE BRACH | EXAMINATION: | | | | | INDICS | 03/21/2012 Dictated | | | | | WITH WAVE | 03/22/2012 INDICATION: | | | | | FORM | Status post | | | | | BILATERAL | embolectomy. FINDINGS: | | | | | | Arterial waveforms | | | | | | were obtained at the | | | | | | posterior tibialand | | | | | | dorsalis pedis levels | | | | | | bilaterally and pulses | | | | | | were assessed.There are | | | | | | palpable pulses at the | | | | | | left posterior tibial | | | | | | and dorsalispedis levels | | | | | | and the right posterior | | | | | | tibial level. There | | | | | | isnon-palpable pulses at | | | | | | the dorsalis pedis | | | | | | level on the right. | | | | | | Thereare biphasic | | | | | | arterial waveforms at | | | | | | the dorsalis pedis level | | | | | | on theright and | | | | | | triphasic arterial | | | | | | waveforms at the | | | | | | posterior tibial | | | | | | levelbilaterally and the | | | | | | dorsalis pedis level | | | | | | bilaterally. Toe | | | | | | waveformsare mildly | | | | | | dampened on the right | | | | | | side. Ankle brachial | | | | | | index measures0.87 on | | | | | | the right and 1.31 on | | | | | | the left with toe | | | | | | brachial index of 0.3on | | | | | | the right and 0.62 on | | | | | | the left. IMPRESSION: | | | | | | Abnormal ankle brachial | | | | | | examination | | | | | | demonstrating | | | | | | obstruction ofarterial | | | | | | inflow to the right | | | | | | foot. END IMPRESSION | | | | | | Attending | | | | | | Radiologists: ,Author: | | | | | | AMALIA EDWARDS M.D. | | | | | | I have personally | | | | | | viewed this | | | | | | procedure/exam, reviewed | | | | | | this report,and made | | | | | | changes to it where | | | | | | appropriate. | | | | | | Final/Electronically | | | | | | signed / Amalia Unger | | | | | | Jorge Preliminary / | | | | | | Davina Sheikh | | | | + + + + + + + + | Specimen | + + | | + + + +---------+ + + | Performing | Address | City/State/Zipcode | Phone Number | | Organization | | | | + +---------+ + + | [facility] | | | | | RADIOLOGY | | | | + +---------+ + + MAGNESIUM, PLASMA (03/21/2012 4:12 AM PST) + +---------+ + + + [...] | + + + + + | [facility] | [address] | [place] [address] | | | JANELL SHARP | [address] | | | + + + + + CBC (03/21/2012 4:12 AM PST) + + + + + + | Component | Value | Ref Range | Performed | Pathologist | | | | | At | Signature | + + + + + + | WHITE CELL | 29.0 (H) | 4.4 - 11.0 K/cu | [facility] | | | COUNT | | mm | LABORATORY | | | | | | SERVICES, | | | | | | CORE | | + + + + + + | RED CELL | 3.76 (L) | 4.00 - 5.20 | [facility] [...] + + + | MCHC | 30.9 (L) | 33.4 - 35.5 | [facility] | | | | | g/dL | LABORATORY | | | | | | SERVICES, | | | | | | CORE | | + + + + + + | RDW | 27.9 (H) | 11.5 - 15.0 % | [facility] | | | | | | LABORATORY | | | | | | SERVICES, | | | | | | CORE | | + + + + + + | PLATELET | 561 (H) | 150 - 400 K/cu | [...] [facility] | [address] | [place] [address] | | | SERVICES, CORE | [address] | | | + + + + + HEPARIN, EITHER STANDARD / LMW, BLOOD (03/21/2012 4:12 AM PST) + +-------+ + + + [...] unreliable for: | | | Total bilirubin >6.6mg/dL | | | Triglycerides >360 mg/dL | | | or Moderate to Gross Hemolysis | | + + + + + + + + | Performing | Address | City/State/Zipcode | Phone Number | | Organization | | | | + + + + + | [facility] | [address] | [place] [address] | | | SERVICES, CORE | [address] | | | + + + + + INR (03/21/2012 4:12 AM PST) + + + + + + | Component | Value | Ref Range | Performed | Pathologist | | | | | At | Signature | + + + + + + | INR | 2.09 (H) | 0.90 - 1.20 INR | [...] mech. valves (2.5 - 3.5) INR | [facility] CORE | + + + + + + + + | Performing | Address | City/State/Zipcode | Phone Number | | Organization | | | | + + + + + | [facility] | [address] | [place] [address] | | | SERVICES, JANELL | [address] | | | + + + + + BASIC METABOLIC SET (NA, K, CL, TCO2, BUN, CR, GLU, CA) (03/21/2012 4:12 AM PST) + + + + + + | Component | Value | Ref Range | Performed | Pathologist | | | | | At | Signature | + + + + + + | GLUCOSE, | 116 (H) | 60 - 99 mg/dL | [facility] | | | PLASMA | | | LABORATORY | | | (LAB) | | | SERVICES, | | | | | | CORE | | + + + + + + | BUN, PLASMA | 2 (L) | 6 - 20 mg/dL | [facility] | | | (LAB) | | | LABORATORY | | | | | | SERVICES, | | | | | | CORE | | + + + + + + | CREATININE | 0.58 (L) | 0.60 - 1.10 | [facility] | | | PLASMA | | mg/dL | LABORATORY | | | (LAB) | | | SERVICES, | | | | | | CORE | | + + + + + + | SODIUM, | 142 | 136 - 145 | [facility] | | | PLASMA | | mmol/L | LABORATORY | | | (LAB) | | | SERVICES, | | | | | | CORE | | + + + + + + | POTASSIUM, | 3.2 (L) | 3.4 - 5.0 | [facility] | | | PLASMA | | mmol/L | LABORATORY | | | (LAB) | | | SERVICES, | | | | | | CORE | | + + + + + + | CHLORIDE, | 107 [...] + + + + | CALCIUM, | 7.4 (L) | 8.6 - 10.2 | [facility] | | | PLASMA | | mg/dL | LABORATORY | | | (LAB) | | | SERVICES, | | | | | | CORE | | + + + + + + | ANION GAP | 9 | 4 - 11 mmol/L | [facility] | | | | [...] | + + + + + | [facility] | [address] | [place] [address] | | | SERVICES, CORE | [address] | | | + + + + + 12 LEAD ECG (03/21/2012 1:28 AM PST) + + + + + + | Component | Value | Ref Range | Performed | Pathologist | | | | | At | Signature | + + + + + + | VENTRICULAR | 107 | BPM | [facility] | | | RATE | | | OF | | | | | | CARDIOLOGY | | + + + + + + | ATRIAL RATE | 107 | BPM | [facility] | | | | | | OF | | | | | | CARDIOLOGY | | + + + + + + | P-R | 174 | ms | [facility] | | | INTERVAL | | | OF | | | | | | CARDIOLOGY | | + + + + + + | QRS | 78 | ms | [facility] | | | DURATION | | | OF | | | | | | CARDIOLOGY | | + + + + + + | QT | 368 | ms | [facility] | | | | | | OF | | | | | | CARDIOLOGY | | + + + + + + | QTC | 491 | ms | [facility] | | | | | | OF | | | | | | CARDIOLOGY | | + + + + + + | P AXIS | 21 | degrees | [facility] | | | | | | OF | | | | | | CARDIOLOGY | | + + + + + + | R AXIS | 34 | degrees | [facility] | | | | | | OF | | | | | | CARDIOLOGY | | + + + + + + | T AXIS | -2 | degrees | [facility] | | | | | | OF | | | | | | CARDIOLOGY | | + + + + + + | EKG | Sinus | | [facility] | | | DIAGNOSIS | tachycardiaNonspecific | | OF | | | | ST and T wave | | CARDIOLOGY | | | | abnormalityAbnormal | | | | | | ECGConfirmed by | | | | | | SURINDER GARCIA | | | | | | ([id number]) on 03/22/2012 | | | | | | 12:47:28 PM | | | | + + + + + + + + | Specimen | + + | | + + + + + | Narrative | Performed At | + + + | Please click | [facility] | | on view image for the detailed interpretation from HashTip results. | CARDIOLOGY | + + + + + + + + | Performing | Address | City/State/Zipcode | Phone Number | | Organization | | | | + + + + + | [facility] | [address] | [place], [place] | | | CARDIOLOGY | [address] | [address] | | + + + + + X-RAY CHEST 2 VIEW (03/20/2012 9:45 PM PST) + + + + + + | Component | Value | Ref Range | Performed | Pathologist | | | | | At | Signature | + + + + + + | CHEST, 2 | STUDY: CHEST 2 VIEWS | | | | | VIEWS [place] | 03/20/12 21:45:00 | | | | | [facility] | HISTORY: 56-year-old | | | | | | female with continued | | | | | | fevers | | | | | | despitediaphragmatic | | | | | | therapy, concern for | | | | | | pneumonia. COMPARISON: | | | | | | Earlier the same day. | | | | | | FINDINGS: Left upper | | | | | | extremity PICC is | | | | | | unchanged in position. | | | | | | There is a newleft | | | | | | lingular ground glass | | | | | | opacification. Right | | | | | | upper lobe groundglass | | | | | | it is slightly worsened | | | | | | from prior. There is | | | | | | persistentbibasilar | | | | | | atelectasis and a small | | | | | | right pleural effusion. | | | | | | There isno | | | | | | pneumothorax or | | | | | | pulmonary edema. No | | | | | | acute osseous | | | | | | abnormalitiesidentified. | | | | | | IMPRESSION: 1. | | | | | | Worsening right upper | | | | | | lobe ground glass | | | | | | opacification | | | | | | withdevelopment of new | | | | | | left lingular opacity | | | | | | most consistent | | | | | | withmultifocal | | | | | | pneumonia. 2. | | | | | | Persistent bibasilar | | | | | | atelectasis and small | | | | | | right pleural effusion. | | | | | | Attending Radiologists: | | | | | | Libby Moreno, | | | | | | M.DGhulamAuthor: Omi | | | | | | Fortino Carrillo I have | | | | | | personally viewed this | | | | | | procedure/exam, reviewed | | | | | | this report,and made | | | | | | changes to it where | | | | | | appropriate. | | | | | | Final/Electronically | | | | | | signed / Libby | | | | | | Fuss 03/21/2012 9:47 AM | | | | | | | | | | + + + + + + + + | Specimen | + + | | + + + +---------+ + + | Performing | Address | City/State/Zipcode | Phone Number | | Organization | | | | + +---------+ + + | [facility] | | | | | RADIOLOGY | | | | + +---------+ + + MAGNESIUM, PLASMA (03/20/2012 8:21 PM PST) + + + + + + | Component | Value | Ref Range | Performed | Pathologist | | | | | At | Signature | + + + + + + | MAGNESIUM,P | 0.9 (LL) | 1.8 - 2.5 mg/dL | [facility] [...] [facility] | [address] | [place] [address] | | | SERVICES, CORE | [address] | | | + + + + + BASIC METABOLIC SET (NA, K, CL, TCO2, BUN, CR, GLU, CA) (03/20/2012 8:21 PM PST) + +---------+ + + + [...] + + + | BUN, PLASMA | 2 (L) | 6 - 20 mg/dL | [facility] [...] +---------+ + + + | SODIUM, | 139 | 136 - 145 | [facility] | | | PLASMA | | mmol/L | LABORATORY | | | (LAB) | | | SERVICES, | | | | | | CORE | | + +---------+ + + + | POTASSIUM, | 2.6 (L) | 3.4 - 5.0 | [facility] [...] +---------+ + + + | CALCIUM, | 7.1 (L) | 8.6 - 10.2 | [facility] | | | PLASMA | | mg/dL | LABORATORY | | | (LAB) | | | SERVICES, | | | | | | CORE | | + +---------+ + + + | ANION GAP | 10 | 4 - 11 mmol/L | [facility] | | | | [...] | + + + + + | [facility] | [address] | [place] [address] | | | SERVICES, CORE | [address] | | | + + + + + CAPILLARY BLOOD GLUCOSE (NO CHG), POC (03/20/2012 5:36 PM PST) + +-------+ + + + | Component | Value | Ref Range | Performed | Pathologist | | | | | At | Signature | + +-------+ + + + | BLOOD | 98 | 60 - 99 mg/dL | [facility] - | | | GLUCOSE, | | [...] | [facility] | [address] | [place], [place] | | | [facility] | [address] | [address] | | | TESTS | | | | + + + + + 12 LEAD ECG (03/20/2012 3:48 PM PST) + + + + + + | Component | Value | Ref Range | Performed | Pathologist | | | | | At | Signature | + + + + + + | VENTRICULAR | 108 | BPM | [facility] | | | RATE | | | OF | | | | | | CARDIOLOGY | | + + + + + + | ATRIAL RATE | 108 | BPM | [facility] | | | | | | OF | | | | | | CARDIOLOGY | | + + + + + + | P-R | 232 | ms | [facility] | | | INTERVAL | | | OF | | | | | | CARDIOLOGY | | + + + + + + | QRS | 80 | ms | [facility] | | | DURATION | | | OF | | | | | | CARDIOLOGY | | + + + + + + | QT | 206 | ms | [facility] | | | | | | OF | | | | | | CARDIOLOGY | | + + + + + + | QTC | 276 | ms | [facility] | | | | | | OF | | | | | | CARDIOLOGY | | + + + + + + | P AXIS | 17 | degrees | [facility] | | | | | | OF | | | | | | CARDIOLOGY | | + + + + + + | R AXIS | 31 | degrees | [facility] | | | | | | OF | | | | | | CARDIOLOGY | | + + + + + + | T AXIS | 247 | degrees | [facility] | | | | | | OF | | | | | | CARDIOLOGY | | + + + + + + | EKG | Sinus tachycardia with | | [facility] | | | DIAGNOSIS | 1st degree A-V | | OF | | | | blockNonspecific T wave | | CARDIOLOGY | | | | abnormalityAbnormal | | | | | | ECGConfirmed by | | | | | | MAGY RAPHAEL ([id number]) on | | | | | | 03/21/2012 9:42:50 PM | | | | + + + + + + + + | Specimen | + + | | + + + + + | Narrative | Performed At | + + + | Please click | [facility] | | on view image for the detailed interpretation from [employer] results. | CARDIOLOGY | + + + + + + + + | Performing | Address | City/State/Zipcode | Phone Number | | Organization | | | | + + + + + | [facility] | [address] | [place], [place] | | | CARDIOLOGY | [address] | [address] | | + + + + + CAPILLARY BLOOD GLUCOSE (NO CHG), POC (03/20/2012 1:12 PM PST) + +---------+ + + + [...] [facility] | [address] | [place], [place] | | | [facility] | [address] | [address] | | | TESTS | | | | + + + + + CAPILLARY BLOOD GLUCOSE (NO CHG), POC (03/20/2012 10:24 AM PST) + +---------+ + + + | Component | Value | Ref Range | Performed | Pathologist | | | | | At | Signature | + +---------+ + + + | BLOOD | 107 (H) | 60 - 99 mg/dL | [facility] - | | | GLUCOSE, | | [...] [facility] | [address] | [place], [place] | | | [facility] | [address] | [address] | | | TESTS | | | | + + + + + X-RAY PORTABLE CHEST 1 VIEW (03/20/2012 10:13 AM PST) + + + + + + | Component | Value | Ref Range | Performed | Pathologist | | | | | At | Signature | + + + + + + | X-RAY | STUDY: [place] CHEST 1 VIEW | | | | | PORTABLE | 03/20/12 10:13:00 | | | | | CHEST 1 | COMPARISON: 03/19/12 | | | | | VIEW | HISTORY: New PICC. | | | | | | FINDINGS: Portable AP | | | | | | chest x-ray demonstrates | | | | | | interval introduction | | | | | | of a leftPICC which | | | | | | terminates in the distal | | | | | | SVC just above the | | | | | | cavoatrialjunction. | | | | | | There is irregular | | | | | | superhilar opacity noted | | | | | | on the right | | | | | | involvingthe right upper | | | | | | lobe. This is | | | | | | concerning for pneumonia | | | | | | in theappropriate | | | | | | clinical setting. | | | | | | There is a small right | | | | | | pleuraleffusion with | | | | | | associated compressive | | | | | | atelectasis noted. A | | | | | | cardiacleft lung opacity | | | | | | is also suggestive of | | | | | | atelectasis. The | | | | | | cardiacsize is stable. | | | | | | Overt pulmonary edema | | | | | | is not seen. No | | | | | | pneumothoraxis evident. | | | | | | IMPRESSION: 1. | | | | | | Interval placement of | | | | | | left PICC tip in distal | | | | | | SVC.2. Irregular right | | | | | | upper lobe parenchymal | | | | | | opacities concerning | | | | | | forpneumonia in the | | | | | | appropriate clinical | | | | | | setting.3. Small right | | | | | | pleural effusion with | | | | | | bibasilar opacities | | | | | | likelyrepresenting | | | | | | atelectasis. Attending | | | | | | Radiologists: Davi | | | | | | Fortino CruzAuthor: Davi | | | | | | Fortino Cruz I have | | | | | | personally viewed this | | | | | | procedure/exam, reviewed | | | | | | this report,and made | | | | | | changes to it where | | | | | | appropriate. | | | | | | Final/Electronically | | | | | | isaías / Davi Cruz | | | | | | 03/20/2012 11:03 AM | | | | + + + + + + + + | Specimen | + + | | + + + +---------+ + + | Performing | Address | City/State/Zipcode | Phone Number | | Organization | | | | + +---------+ + + | [facility] | | | | | RADIOLOGY | | | | + +---------+ + + CBC (03/20/2012 7:00 AM PST) + + + + + + | Component | Value | Ref Range | Performed | Pathologist | | | | | At | Signature | + + + + + + | WHITE CELL | 25.7 (H) | 4.4 - 11.0 K/cu | [facility] | | | COUNT | | mm | LABORATORY | | | | | | SERVICES, | | | | | | CORE | | + + + + + + | RED CELL | 3.61 (L) | 4.00 - 5.20 | [facility] | | | COUNT | | M/cu mm | LABORATORY | | | | | | SERVICES, | | | | | | CORE | | + + + + + + | HEMOGLOBIN | 9.6 (L) | 12.0 - 16.0 | [facility] | | | | | g/dL | LABORATORY | | | | | | SERVICES, | | | | | | CORE | | + + + + + + | HEMATOCRIT | 30.2 (L) | 36.0 - 46.0 % | [facility] | | | | | | LABORATORY | | | | | | SERVICES, | | | | | | CORE | | + + + + + + | MCV | 83.7 | 80.0 - 96.0 fL | [facility] | | | | | | LABORATORY | | | | | | SERVICES, | | | | | | CORE | | + + + + + + | MCHC | 31.9 (L) | 33.4 - 35.5 | [facility] | | | | | g/dL | LABORATORY | | | | | | SERVICES, | | | | | | CORE | | + + + + + + | RDW | 24.8 (H) | 11.5 - 15.0 % | [facility] | | | | | | LABORATORY | | | | | | SERVICES, | | | | | | CORE | | + + + + + + | PLATELET | 492 (H) | 150 - 400 K/cu | [...] Performed At | + + + | Final WBC report. | [facility] | | | LABORATORY | | | SERVICES, CORE | + + + + + + + + | Performing | Address | City/State/Zipcode | Phone Number | | Organization | | | | + + + + + | [facility] | [address] | [place] [address] | | | SERVICES, CORE | [address] | | | + + + + + HEPARIN, EITHER STANDARD / LMW, BLOOD (03/20/2012 7:00 AM PST) + +-------+ + + + | Component | Value | Ref Range | Performed | Pathologist | | | | | At | Signature | + +-------+ + + + | HEPARIN, | 0.59 | U/mL | [facility] | | | [...] unreliable for: | | | Total bilirubin >6.6mg/dL | | | Triglycerides >360 mg/dL | | | or Moderate to Gross Hemolysis | | + + + + + + + + | Performing | Address | City/State/Zipcode | Phone Number | | Organization | | | | + + + + + | [facility] | [address] | [place] [address] | | | SERVICES, CORE | [address] | | | + + + + + INR (03/20/2012 7:00 AM PST) + + + + + + | Component | Value | Ref Range | Performed | Pathologist | | | | | At | Signature | + + + + + + | INR | 2.25 (H) | 0.90 - 1.20 INR | [facility] | | | | | | LABORATORY [...] [facility] | [address] | [place] [address] | | | SERVICES, CORE | [address] | | | + + + + + BASIC METABOLIC SET (NA, K, CL, TCO2, BUN, CR, GLU, CA) (03/20/2012 7:00 AM PST) + +---------+ + + + | Component | Value | Ref Range | Performed | Pathologist | | | | | At | Signature | + +---------+ + + + | GLUCOSE, | 105 (H) | 60 - 99 mg/dL | [facility] | | | PLASMA | | | LABORATORY | | | (LAB) | | | SERVICES, | | | | | | CORE | | + +---------+ + + + | BUN, PLASMA | 2 (L) | 6 - 20 mg/dL | [facility] | | | (LAB) | | | LABORATORY | | | | | | SERVICES, | | | | | | CORE | | + +---------+ + + + | CREATININE | 0.60 | 0.60 - 1.10 | [facility] | [...] +---------+ + + + | POTASSIUM, | 2.8 (L) | 3.4 - 5.0 | [facility] [...] +---------+ + + + | CALCIUM, | 7.3 (L) | 8.6 - 10.2 | [facility] | | | PLASMA | | mg/dL | LABORATORY | | | (LAB) | | | SERVICES, | | | | | | CORE | | + +---------+ + + + | ANION GAP | 8 | 4 - 11 mmol/L | [facility] | | | | [...] | + + + + + | [facility] | [address] | [place] [address] | | | SERVICES, CORE | [address] | | | + + + + + CAPILLARY BLOOD GLUCOSE (NO CHG), POC (03/20/2012 6:08 AM PST) + +---------+ + + + | Component | Value | Ref Range | Performed | Pathologist | | | | | At | Signature | + +---------+ + + + | BLOOD | 126 (H) | 60 - 99 [...] [facility] | [address] | [place], [place] | | | [facility] | [address] | [address] | | | TESTS | | | | + + + + + CAPILLARY BLOOD GLUCOSE (NO CHG), POC (03/19/2012 11:52 PM PST) + +---------+ + + [...] + + + + | [facility] | [address] | [place], [place] | | | [facility] [place] [facility] | [address] | [address] | | | TESTS | | | | + + + + + CULTURE, BLOOD BACTI & YEAST [place] (03/19/2012 6:50 PM PST) + + + + + + | Component | Value | Ref Range | Performed | Pathologist | | | | | At | Signature | + + + + + + | BLOOD | Final Report:No Bacteria | Final Report:No | [facility] | | | CULTURE | or Yeast isolated at 5 | Bacteria or | LABORATORY | | | [facility] | days.Comment: This is a | Yeast isolated | SERVICES, | | | | corrected result. | at 5 days., | CORE | | | | Previous result was No | Sent for | | | | | growth to date. on | Subculture, No | | | | | 03/21/2012 0015. | growth to date. | | | + + + + + + + + | Specimen | + + | Blood - Hand - left | + + + + + + + | Performing | Address | City/State/Zipcode | Phone Number | | Organization | | | | + + + + + | [facility] | [address] | [place] [address] | | | SERVICES, CORE | [address] | | | + + + + + CULTURE, BLOOD BACTI & YEAST [facility] (03/19/2012 6:48 PM PST) + + + + + + | Component | Value | Ref Range | Performed | Pathologist | | | | | At | Signature | + + + + + + | BLOOD | Final Report:No Bacteria | Final Report:No | [facility] | | | CULTURE | or Yeast isolated at 5 | Bacteria or | LABORATORY | | | [facility] | days.Comment: This is a | Yeast isolated | SERVICES, | | | | corrected result. | at 5 days., | CORE | | | | Previous result was No | Sent for | | | | | growth to date. on | Subculture, No | | | | | 03/21/2012t 0014. | growth to date. | | | + + + + + + + + | Specimen | + + | Blood - Thumb - left | + + + + + + + | Performing | Address | City/State/Zipcode | Phone Number | | Organization | | | | + + + + + | [facility] | [address] | [place] [address] | | | SERVICES, CORE | [address] | | | + + + + + CAPILLARY BLOOD GLUCOSE (NO CHG), POC (03/19/2012 4:47 PM PST) + +---------+ + + + | Component | Value | Ref Range | Performed | Pathologist | | | | | At | Signature | + +---------+ + + + | BLOOD | 123 (H) | 60 - 99 mg/dL | [facility] - | | | GLUCOSE, | | [...] [facility] | [address] | [place], [place] | | | [facility] | [address] | [address] | | | TESTS | | | | + + + + + 12 LEAD ECG (03/19/2012 2:15 PM PST) + + + + + + | Component | Value | Ref Range | Performed | Pathologist | | | | | At | Signature | + + + + + + | VENTRICULAR | 101 | BPM | [facility] | | | RATE | | | OF | | | | | | CARDIOLOGY | | + + + + + + | ATRIAL RATE | 101 | BPM | [facility] | | | | | | OF | | | | | | CARDIOLOGY | | + + + + + + | P-R | 182 | ms | [facility] | | | INTERVAL | | | OF | | | | | | CARDIOLOGY | | + + + + + + | QRS | 80 | ms | [facility] | | | DURATION | | | OF | | | | | | CARDIOLOGY | | + + + + + + | QT | 374 | ms | [facility] | | | | | | OF | | | | | | CARDIOLOGY | | + + + + + + | QTC | 484 | ms | [facility] | | | | | | OF | | | | | | CARDIOLOGY | | + + + + + + | P AXIS | 24 | degrees | [facility] | | | | | | OF | | | | | | CARDIOLOGY | | + + + + + + | R AXIS | 24 | degrees | [facility] | | | | | | OF | | | | | | CARDIOLOGY | | + + + + + + | T AXIS | 11 | degrees | [facility] | | | | | | OF | | | | | | CARDIOLOGY | | + + + + + + | EKG | Sinus | | [facility] | | | DIAGNOSIS | tachycardiaNonspecific | | OF | | | | ST and T wave | | CARDIOLOGY | | | | abnormalityAbnormal | | | | | | ECGConfirmed by CINDA | | | | | | LINDSEY ([id number]) on 03/20/2012 | | | | | | 10:40:05 AM | | | | + + + + + + + + | Specimen | + + | | + + + + + | Narrative | Performed At | + + + | Please click | [facility] | | on view image for the detailed interpretation from [employer] results. | CARDIOLOGY | + + + + + + + + | Performing | Address | City/State/Zipcode | Phone Number | | Organization | | | | + + + + + | [facility] | [address] | [place], [place] | | | CARDIOLOGY | [address] | [address] | | + + + + + CAPILLARY BLOOD GLUCOSE (NO CHG), POC (03/19/2012 1:05 PM PST) + +---------+ + + + [...] + | [facility] | [address] | [place], [place] | | | [facility] | [address] | [address] | | | TESTS | | | | + + + + + X-RAY CHEST 2 VIEW (03/19/2012 11:36 AM PST) + + + + + + | Component | Value | Ref Range | Performed | Pathologist | | | | | At | Signature | + + + + + + | CHEST, 2 | EXAM: PA and lateral | | | | | VIEWS [place] | chest 03/19/12 11:36:00 | | | | | STEREO | CLINICAL HISTORY: New | | | | | | cough and fever with | | | | | | bibasilar crackles | | | | | | COMPARISON: 03/12/2012. | | | | | | FINDINGS: Right | | | | | | jugular central venous | | | | | | catheter has been | | | | | | removed.There is | | | | | | persistent eventration | | | | | | of the right | | | | | | hemidiaphragm. | | | | | | Thereare new moderate | | | | | | right and small left | | | | | | pleural effusions | | | | | | withcompressive | | | | | | atelectasis. There is | | | | | | no pulmonary edema | | | | | | orpneumothorax. No | | | | | | focal consolidation to | | | | | | suggest pneumonia. | | | | | | Thecardiac and | | | | | | mediastinal contours are | | | | | | stable. IMPRESSION: New | | | | | | bilateral (right | | | | | | greater than left) | | | | | | pleural effusions | | | | | | withcompressive | | | | | | atelectasis. Attending | | | | | | Radiologists: Kaya | | | | | | Lizz,Author: Kaya | | | | | | Lizz I have | | | | | | personally viewed this | | | | | | procedure/exam, reviewed | | | | | | this report,and made | | | | | | changes to it where | | | | | | appropriate. | | | | | | Final/Electronically | | | | | | signed / Kaya Shaikh | | | | | | 03/21/2012 9:51 AM | | | | | | Final/Electronically | | | | | | signed / Kaya Shaikh | | | | | | 03/19/2012 17:08 PM | | | | | | Preliminary / Kaya | | | | | | Lizz 03/19/2012 17:04 | | | | | | PM | | | | + + + + + + + + | Specimen | + + | | + + + +---------+ + + | Performing | Address | City/State/Zipcode | Phone Number | | Organization | | | | + +---------+ + + | [facility] OF | | | | | RADIOLOGY | | | | + +---------+ + + CAPILLARY BLOOD GLUCOSE (NO CHG), POC (03/19/2012 7:12 AM PST) + +---------+ + + + [...] [facility] | [address] | [place], [place] | | | [facility] | [address] | [address] | | | TESTS | | | | + + + + + HEPARIN, EITHER STANDARD / LMW, BLOOD (03/19/2012 6:40 AM PST) + +-------+ + + + | Component | Value | Ref Range | Performed | Pathologist | | | | | At | Signature | + +-------+ + + + | HEPARIN, | 0.60 | U/mL | [facility] | | | [...] unreliable for: | | | Total bilirubin >6.6mg/dL | | | Triglycerides >360 mg/dL | | | or Moderate to Gross Hemolysis | | + + + + + + + + | Performing | Address | City/State/Zipcode | Phone Number | | Organization | | | | + + + + + | [facility] | [address] | [place] [address] | | | SERVICES, CORE | [address] | | | + + + + + INR (03/19/2012 6:40 AM PST) + + + + + [...] | + + + + + | [facility] | [address] | [place] [address] | | | SERVICES, CORE | [address] | | | + + + + + CBC (03/19/2012 6:39 AM PST) + + + + + + | Component | Value | Ref Range | Performed | Pathologist | | | | | At | Signature | + + + + + + | WHITE CELL | 24.9 (H) | 4.4 - 11.0 K/cu | [facility] | | | COUNT | | mm | LABORATORY | | | | | | SERVICES, | | | | | | CORE | | + + + + + + | RED CELL | 3.38 (L) | 4.00 - 5.20 | [facility] | | | COUNT | | M/cu mm | LABORATORY | | | | | | SERVICES, | | | | | | CORE | | + + + + + + | HEMOGLOBIN | 9.9 (L) | 12.0 - 16.0 | [facility] [...] + + + + | MCV | 89.1 | 80.0 - 96.0 fL | [facility] | | | | | | LABORATORY | | | | | | SERVICES, | | | | | | CORE | | + + + + + + | MCHC | 32.9 (L) | 33.4 - 35.5 | [facility] | | | | | g/dL | LABORATORY | | | | | | SERVICES, | | | | | | CORE | | + + + + + + | RDW | 24.4 (H) | 11.5 - 15.0 % | [facility] | | | | | | LABORATORY | | | | | | SERVICES, | | | | | | CORE | | + + + + + + | PLATELET | 575 (H) | 150 - 400 K/cu | [...] | + + + + + | [facility] | [address] | [place] [address] | | | SERVICES, CORE | [address] | | | + + + + + BASIC METABOLIC SET (NA, K, CL, TCO2, BUN, CR, GLU, CA) (03/19/2012 6:39 AM PST) + +---------+ + + + | Component | Value | Ref Range | Performed | Pathologist | | | | | At | Signature | + +---------+ + + + | GLUCOSE, | 95 | 60 - 99 mg/dL | [facility] | | | PLASMA | | | LABORATORY | | | (LAB) | | | SERVICES, | | | | | | CORE | | + +---------+ + + + | BUN, PLASMA | 3 (L) | 6 - 20 mg/dL | [facility] | | | (LAB) | | | LABORATORY | | | | | | SERVICES, | | | | | | CORE | | + +---------+ + + + | CREATININE | 0.60 | 0.60 - 1.10 | [facility] | | | PLASMA | | mg/dL | LABORATORY | | | (LAB) | | | SERVICES, | | | | | | CORE | | + +---------+ + + + | SODIUM, | 142 | 136 - 145 | [facility] | | | PLASMA | | mmol/L | LABORATORY | | | (LAB) | | | SERVICES, | | | | | | CORE | | + +---------+ + + + | POTASSIUM, | 3.4 | 3.4 - 5.0 | [facility] | [...] + + + | TOTAL CO2, | 25 | 21 - 32 mmol/L | [facility] | | | PLASMA | | | LABORATORY | | | (LAB) | | | SERVICES, | | | | | | CORE | | + +---------+ + + + | CALCIUM, | 7.9 (L) | 8.6 - 10.2 | [facility] | | | PLASMA | | mg/dL | LABORATORY | | | (LAB) | | | SERVICES, | | | | | | CORE | | + +---------+ + + + | ANION GAP | 11 | 4 - 11 mmol/L | [facility] | | | | [...] under test result. | LABORATORY | | | JANELL SHARP | + + + + + + + + | Performing | Address | City/State/Zipcode | Phone Number | | Organization | | | | + + + + + | [facility] | [address] | [place] [address] | | | JANELL SHARP | [address] | | | + + + + + CULTURE, URINE BACTI (03/19/2012 1:24 AM PST) + + + + + + | Component | Value | Ref Range | Performed | Pathologist | | | | | At | Signature | + + + + + + | CULTURE | C UrineSource: U | | [facility] - | | | RESULT | Midstream | | AIRPORT - | | | | Final | | [place] | | | | CULTURE RESULT:No growth | | | | | | (<1000 col/ml) after 24 | | | | | | hours | | | | + + + + + + + + | Specimen | + + | Urine - Urine | + + + + + + + | Performing | Address | City/State/Zipcode | Phone Number | | Organization | | | | + + + + + | [facility] | [address] | [place] [address] | | | [facility] | | | | + + + + + TELMA FARAH ONLY (03/19/2012 1:24 AM PST) + + + + + + | Component | Value | Ref Range | Performed | Pathologist | | | | | At | Signature | + + + + + + | COLOR(UR) | Straw | (none) | [facility] | | | | | | LABORATORY | | | | | | SERVICES, | | | | | | CORE | | + + + + + + | APPEARANCE | Sl.Cloudy | (none) | [facility] | | | | | [...] + + + + | PH(UR) | 6.0 | 5.0 - 8.0 | [facility] | | | | | | LABORATORY | | | | | | SERVICES, | | | | | | CORE | | + + + + + + | BLOOD | Small (A) | Negative | [facility] | | [...] + + + + | LEUKOCYTE | Large (A) | Negative | [facility] | | | ESTERASE | | | LABORATORY | | | | | | SERVICES, | | | | | | CORE | | + + + + + + | SPECIFIC | <1.005 (L) | 1.005 - 1.030 | [facility] | [...] [facility] | [address] | [place] [address] | | | SERVICES, CORE | [address] | | | + + + + + URINE, MICROSCOPIC EXAM (03/19/2012 1:24 AM PST) + + + + + + | Component | Value | Ref Range | Performed | Pathologist | | | | | At | Signature | + + + + + + | RED CELLS | 5 (H) | 0 - 3 /hpf | [facility] | | | | | | LABORATORY | | | | | | SERVICES, | | | | | | CORE | | + + + + + + | WHITE CELLS | 15 (H) | 0 - 5 /hpf | [facility] | | | | | | LABORATORY | | | | | | SERVICES, | | | | | | CORE | | + + + + + + | BACTERIA | Few (A) | None /hpf | [facility] | | | | | | LABORATORY | | | | | | SERVICES, | | | | | | CORE | | + + + + + + | YEAST (LAB) | None | None /hpf | [facility] | | | | | | LABORATORY | | | | | | SERVICES, | | | | | | CORE | | + + + + + + | SQUAMOUS | Moderate (A) | None /hpf | [facility] | | | EPITHELIAL | | | LABORATORY | | | | | | SERVICES, | | | | | | CORE | | + + + + + + | MUCOUS | Few (A) | None /hpf | [facility] | | | | | | LABORATORY | | | | | | SERVICES, | | | | | | CORE | | + + + + + + | TRICHOMONAS | None | None /hpf | [facility] | | | | | | LABORATORY | | | | | | SERVICES, | | | | | | CORE | | + + + + + + | NON-SQUAMALFONSO | Aniket (A) | None /hpf | [facility] | | | S EPITH | | | LABORATORY | | | | | | SERVICES, | | | | | | CORE | | + + + + + + | HYALINE | 0 | 0 - 2 /lpf | [facility] | | | CASTS | | | LABORATORY | | | | | | SERVICES, | | | | | | CORE | | + + + + + + | GRANULAR | 0 | 0 - 2 /lpf | [facility] | | | CASTS | | | LABORATORY | | | | | | SERVICES, | | | | | | CORE | | + + + + + + | CELLULAR | 0 | <=0 /lpf | [facility] | | | CASTS | | | LABORATORY | | | | | | SERVICES, | | | | | | CORE | | + + + + + + | TRIPLE P04 | None | None /hpf | [facility] | | | CRYSTALS | | | LABORATORY | | | | | | SERVICES, | | | | | | CORE | | + + + + + + | CALCIUM | None | None /hpf | [facility] | | | OXALATE | | | LABORATORY | | | VIJAY | | | SERVICES, | | | | | | CORE | | + + + + + + | URIC ACID | None | None /hpf | [facility] | | | [facility]ALS | | | LABORATORY | | | | | | SERVICES, | | | | | | CORE | | + + + + + + | AMORPHOUS | None [...] [facility] | [address] | [place] [address] | | | SERVICES, JANELL | [address] | | | + + + + + URINE SCREEN FOR CULTURE (03/19/2012 1:24 AM PST) + + + + + + | Component | Value | Ref Range | Performed | Pathologist | | | | | At | Signature | + + + + + + | URINE | Positive (A) | Negative | [facility] | | [...] | + + + | Culture Screen Positive, specimen sent for culture. | [facility] | | | LABORATORY | | | SERVICES, CORE | + + + + + + + + | Performing | Address | City/State/Zipcode | Phone Number | | Organization | | | | + + + + + | [facility] | [address] | [place] [address] | | | SERVICES, CORE | [address] | | | + + + + + CULTURE, BLOOD BACTI & YEAST [facility] (03/19/2012 1:10 AM PST) + + + + + + | Component | Value | Ref Range | Performed | Pathologist | | | | | At | Signature | + + + + + + | BLOOD | Final Report:No Bacteria | Final Report:No | [facility] | | | CULTURE | or Yeast isolated at 5 | Bacteria or | LABORATORY | | | [facility] | days.Comment: This is a | Yeast isolated | SERVICES, | | | | corrected result. | at 5 days., | CORE | | | | Previous result was No | Sent for | | | | | growth to date. on | Subculture, No | | | | | 03/21/2012t 0013. | growth to date. | | | + + + + + + + + | Specimen | + + | Blood - Hand - left | + + + + + + + | Performing | Address | City/State/Zipcode | Phone Number | | Organization | | | | + + + + + | [facility] | [address] | [place] [address] | | | SERVICES, CORE | [address] | | | + + + + + CULTURE, BLOOD BACTI & YEAST [facility] (03/19/2012 1:10 AM PST) + + + + + + | Component | Value | Ref Range | Performed | Pathologist | | | | | At | Signature | + + + + + + | BLOOD | Final Report:No Bacteria | Final Report:No | [facility] | | | CULTURE | or Yeast isolated at 5 | Bacteria or | LABORATORY | | | [facility] | days.Comment: This is a | Yeast isolated | SERVICES, | | | | corrected result. | at 5 days., | CORE | | | | Previous result was No | Sent for | | | | | growth to date. on | Subculture, No | | | | | 03/21/2012t 0014. | growth to date. | | | + + + + + + + + | Specimen | + + | Blood - Arm - right | + + + + + + + | Performing | Address | City/State/Zipcode | Phone Number | | Organization | | | | + + + + + | [facility] | [address] | [place] [address] | | | SERVICES, CORE | [address] | | | + + + + + CAPILLARY BLOOD GLUCOSE (NO CHG), POC (03/18/2012 11:54 PM PST) + +---------+ + + + | Component | Value | Ref Range | Performed | Pathologist | | | | | At | Signature | + +---------+ + + + | BLOOD | 108 (H) | 60 - 99 mg/dL | [facility] - | | | GLUCOSE, | | [...] [facility] | [address] | [place], [place] | | | [facility] | [address] | [address] | | | TESTS | | | | + + + + + HEPARIN, EITHER STANDARD / LMW, BLOOD (03/18/2012 11:22 PM PST) + +-------+ + + + | Component | Value | Ref Range | Performed | Pathologist | | | | | At | Signature | + +-------+ + + + | HEPARIN, | 0.36 | U/mL | [facility] | | | [...] unreliable for: | | | Total bilirubin >6.6mg/dL | | | Triglycerides >360 mg/dL | | | or Moderate to Gross Hemolysis | | + + + + + + + + | Performing | Address | City/State/Zipcode | Phone Number | | Organization | | | | + + + + + | [facility] | [address] | [place] [address] | | | ARON, JANELL | [address] | | | + + + + + CAPILLARY BLOOD GLUCOSE (NO CHG), POC (03/18/2012 6:26 PM PST) + +---------+ + + + [...] + + | [facility] | [address] | [place], [place] | | | [facility] | [facility] | [address] | | | TESTS | | | | + + + + + MANUAL DIFFERENTIAL (03/18/2012 2:58 PM PST) + + + + + + | Component | Value | Ref Range | Performed | Pathologist | | | | | At | Signature | + + + + + + | NEUTROPHIL% | 65 | 50 - 70 % | [facility] | | | | | | LABORATORY | | | | | | SERVICES, | | | | | | CORE | | + + + + + + | LYMPHOCYTE% | 14 (L) | 18 - 42 % | [facility] | | | | | | LABORATORY | | | | | | SERVICES, | | | | | | CORE | | + + + + + + | MONOCYTE % | 14 (H) | 2 - 8 % | [facility] | | | | | | LABORATORY | | | | | | SERVICES, | | | | | | CORE | | + + + + + + | EOSINOPHIL | 3 | 1 - 3 % | [facility] | | | % | | | LABORATORY | | | | | | SERVICES, | | | | | | CORE | | + + + + + + | BASOPHIL % | 1 | 0 - 2 % | [facility] | | | | | | LABORATORY | | | | | | SERVICES, | | | | | | CORE | | + + + + + + | BANDS % | 1 | 0 - 10 % | [facility] | | | | | | LABORATORY | | | | | | SERVICES, | | | | | | CORE | | + + + + + + | METAMYELO% | 2 (H) | <=0 % | [facility] | | | | | | LABORATORY | | | | | | SERVICES, | | | | | | CORE | | + + + + + + | MYELOCYTES% | 0 | <=0 % | [facility] | | | | | | LABORATORY | | | | | | SERVICES, | | | | | | CORE | | + + + + + + | PROMYELO% | 0 | <=0 % | [facility] | | | | | | LABORATORY | | | | | | SERVICES, | | | | | | CORE | | + + + + + + | ATYPICAL | 0 | <=0 | [facility] | | | CELL% | | | LABORATORY | | | | | | SERVICES, | | | | | | CORE | | + + + + + + | NEUTROPHIL | 16.5 (H) | 1.8 - 7.7 K/cu | [facility] | | | # | | mm | LABORATORY | | | | | | SERVICES, | | | | | | CORE | | + + + + + + | LYMPHOCYTE# | 3.6 | 1.0 - 4.8 K/cu | [facility] | | | | | mm | LABORATORY | | | | | | SERVICES, | | | | | | CORE | | + + + + + + | MONOCYTE # | 3.6 (H) | 0.0 - 0.8 K/cu | [facility] | | | | | mm | LABORATORY | | | | | | SERVICES, | | | | | | CORE | | + + + + + + | EOSINOPHIL | 0.8 (H) | 0.0 - 0.5 K/cu | [facility] | | | # | | mm | LABORATORY | | | | | | SERVICES, | | | | | | CORE | | + + + + + + | BASOPHIL # | 0.3 (H) | 0.0 - 0.2 K/cu | [facility] | | | | | mm | LABORATORY | | | | | | SERVICES, | | | | | | CORE | | + + + + + + | BANDS # | 0.3 | 0.0 - 1.1 K/cu | [facility] | | | | | mm | LABORATORY | | | | | | SERVICES, | | | | | | CORE | | + + + + + + | METAMYELO# | 0.5 | K/cu mm | [facility] | | | | | | LABORATORY | | | | | | SERVICES, | | | | | | CORE | | + + + + + + | MYELOCYTES# | 0.0 | K/cu mm | [facility] | | | | | | LABORATORY | | | | | | SERVICES, | | | | | | CORE | | + + + + + + | PROMYELO # | 0.0 | K/cu mm | [facility] | | | | | | LABORATORY | | | | | | SERVICES, | | | | | | CORE | | + + + + + + | ATYPICAL | 0.0 | K/cu mm | [facility] | | | CELLS # | | | LABORATORY | | | | | | SERVICES, | | | | | | CORE | | + + + + + + | NRBC | 1 | /100 WBC | [facility] | | | | | | LABORATORY | | | | | | SERVICES, | | | | | | CORE | | + + + + + + | ANISOCYTOSI | 3+ (50-100cells/HPF) | (none) | [facility] | | | S | | | LABORATORY | | | | | | SERVICES, | | | | | | CORE | | + + + + + + | MACROCYTOSI | 2+ (25-50cells/HPF) | (none) | [facility] | | | S | | | LABORATORY | | | | | | SERVICES, | | | | | | CORE | | + + + + + + | POLYCHROMAS | 1+ (<1-2cells/HPF) | (none) | [facility] | | | IA | | | LABORATORY | | | | | | SERVICES, | | | | | | CORE | | + + + + + + | TARGET | 1+ (10-25cells/HPF) | (none) | [facility] | | | CELLS | | | LABORATORY | | | | | | SERVICES, | | | | | | CORE | | + + + + + + + + | Specimen | + + | Blood - Blood | + + + + + | Narrative | Performed At | + + + | NRBCs seen on scan of smear. Final automated differential report. | [facility] | | Smear reviewed. | LABORATORY | | | SERVICES, CORE | + + + + + + + + | Performing | Address | City/State/Zipcode | Phone Number | | Organization | | | | + + + + + | [facility] | [id number] | [place] [address] | | | SERVICES, CORE | [address] | | | + + + + + CBC AND AUTO DIFF (03/18/2012 2:58 PM PST) + + + + + + | Component | Value | Ref Range | Performed | Pathologist | | | | | At | Signature | + + + + + + | WHITE CELL | 25.4 (H) | 4.4 - 11.0 K/cu | [facility] | | | COUNT | | mm | LABORATORY | | | | | | SERVICES, | | | | | | CORE | | + + + + + + | RED CELL | 3.73 (L) | 4.00 - 5.20 | [facility] [...] + + + + | [facility] | 85.5 | 80.0 - 96.0 fL | [facility] | | | | | | LABORATORY | | | | | | SERVICES, | | | | | | CORE | | + + + + + + | MCHC | 31.5 (L) | 33.4 - 35.5 | [facility] | | | | | g/dL | LABORATORY | | | | | | SERVICES, | | | | | | CORE | | + + + + + + | RDW | 24.2 (H) | 11.5 - 15.0 % | [facility] | | | | | | LABORATORY | | | | | | SERVICES, | | | | | | CORE | | + + + + + + | PLATELET | 576 (H) | 150 - 400 K/cu | [facility] | | | COUNT | | mm | LABORATORY | | | | | | SERVICES, | | | | | | CORE | | + + + + + + | NEUTROPHIL | 73 (H) | 50 - 70 % | [facility] | | | % | | | LABORATORY | | | | | | SERVICES, | | | | | | CORE | | + + + + + + | LYMPHOCYTE | 18 | 18 - 42 % | [facility] | | | % | | | LABORATORY | | | | | | SERVICES, | | | | | | CORE | | + + + + + + | MONOCYTE % | 8 | 2 - 8 % | [facility] | | | | | | LABORATORY | | | | | | SERVICES, | | | | | | CORE | | + + + + + + | EOS % | 1 | 1 - 3 % | [facility] | | | | | | LABORATORY | | | | | | SERVICES, | | | | | | CORE | | + + + + + + | BASO % | 0 | 0 - 2 % | [facility] | | | | | | LABORATORY | | | | | | SERVICES, | | | | | | CORE | | + + + + + + | NEUTROPHIL | 18.6 (H) | 1.8 - 7.7 K/cu | [facility] | | | # | | mm | LABORATORY | | | | | | SERVICES, | | | | | | CORE | | + + + + + + | LYMPHOCYTE | 4.6 | 1.0 - 4.8 K/cu | [facility] | | | # | | mm | LABORATORY | | | | | | SERVICES, | | | | | | CORE | | + + + + + + | MONOCYTE # | 1.9 (H) | 0.0 - 0.8 K/cu | [facility] | | | | | mm | LABORATORY | | | | | | SERVICES, | | | | | | CORE | | + + + + + + | EOS # | 0.2 | 0.0 - 0.5 K/cu | [facility] | | | | | mm | LABORATORY | | | | | | SERVICES, | | | | | | CORE | | + + + + + + | BASO # | 0.0 | 0.0 - 0.2 K/cu | [facility] | | | | | mm | LABORATORY | | [...] | + + + + + | [facility] | [address] | [place] [address] | | | SERVICES, CORE | [address] | | | + + + + + CAPILLARY BLOOD GLUCOSE (NO CHG), POC (03/18/2012 12:37 PM PST) + +---------+ + + + | Component | Value | Ref Range | Performed | Pathologist | | | | | At | Signature | + +---------+ + + + | BLOOD | 108 (H) | 60 - 99 mg/dL | [...] [facility] | [address] | [place], [place] | | | [facility] | [address] | [address] | | | TESTS | | | | + + + + + OPERATION RECORD (03/18/2012 11:22 AM PST) + + | Transcriptions | + + | Mirela Salgado MD - 03/18/2012 8:38 AM [facility] Date: 03/17/2012ttending | | Surgeon: Mirela Salgado M.D.Production Engineer(s): Sandoval | | Bennett Galvez M.D.Preoperative Diagnosis(es):Embolus, right popliteal artery and | | tibioperoneal trunk.Postoperative Diagnosis(es):Embolus, right popliteal artery and | | tibioperoneal trunk.Procedures Performed:Embolectomy of right popliteal and tibial | | arteries via leg incision.Anesthesia:General.Indications:Ms. Hartley is a 56-year-old | | female who has a right popliteal tibioperonealtrunk embolus. 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 Her leg is not acutely | | threatened butthe ankle-brachial index was approximately half that of the left | | lowerextremity. Both duplex ultrasound, arterial examination and the CT scanwith runoff | | indicate popliteal tibioperoneal trunk embolus.It appears the AT is occluded on the | | CTA. She wasbrought to the operating room at this time for embolectomy.Findings:At time | | of operation, the popliteal artery was a soft vessel as were thetibial vessels. The | | distal popliteal artery and tibioperoneal trunk hadthrombus visible through the arterial | | wall. The Nevaeh cathete rwas able to bepassed to the ankle through the | | tibioperoneal trunk, but would pass a shortdistance down the anterior tibial artery, | | approximately 7 to 8 cm. Therewas clot returned from all vessels with reestablishment | | of vigorous inflowand good backbleeding from actually both the anterior tibial and | | thetibioperoneal trunk. At the end of the procedure, there was a strongposterior tibial | | Doppler signal and a monophasic anterior tibial Dopplersignal over the dorsal pedal | | artery.Estimated Blood Loss:Approximately 100 cc.Specimens:Tissue to Pathology is | | clot.Procedure:Ms. Hartley was brought to the operating room and placed on the | | operatingtable supine under general anesthesia. The right lower extremity wasprepped | | with ChloraPrep and draped as a sterile field. A pause was held. An incision wasmade | | medially just below the knee at the usual below-knee poplitealexposure site. It was | | carried down through the subcutaneous tissues withelectrocautery. The fascia was | | opened. The popliteal artery wasdissected, mobilized, and controlled with a vessel | | loop. It was clearlyfull of thrombus but in the very proximal popliteal artery, one | | could feela good pulse. Distally at the level of the popliteal trifurcation, therewas | | no pulse. The anterior tibial artery was isolated and controlled withthe vessel loop. | | The soleus muscle was taken down for a short distanceallowing visualization of the | | tibioperoneal trunk after taking the anteriortibial veins crossing the tibioperoneal | | trunk. Tibioperoneal trunk wasthen controlled with a vessel loop. Dissection was | | carried down below thelevel of visible clot through the arterial wall. Ms. Hartley was | | then given 3000units of additional intravenous heparin. She was already on a heparin | | drip. Ahorizontal arteriotomy was made. Additional heparin had been allowed | | tocirculate for 3 minutes. The arteriotomy was located just proximal to thetakeoff of | | the anterior tibial artery. A number 4 Nevaeh catheter wasused to extract thrombus | | from the proximal popliteal artery withre-establishment of very vigorous inflow. A | | number 3 Nevaeh catheter waspassed down the anterior tibial vessel and only passed to | | about 7 to 8 cmbut some clot was withdrawn and some backbleeding was obtained from | | theanterior tibial artery.The posterior tibial and peroneal arteries did not back bleed | | with openingof the vessel, however with passing a number 3 Nevaeh down thetibioperoneal | | trunk, there was good return of the Nevaeh with clot. Therewas good backbleeding from | | the tibial peroneal trunk. The lumen wasirrigated with heparinized saline solution. | | The arteriotomy was thenclosed with interrupted 7-0 Prolene sutures and flow was | | restored.Continuous-wave Doppler revealed an excellent Doppler signal at theposterior | | tibial artery, and a monophasic Doppler signal at the level ofthe dorsal pedal artery at | | the ankle. There was a very strong pulse in thepopliteal artery and throughout the | | length of the tibioperoneal trunk inthe incision. This was felt to be adequate | | revascularization. The heparinwas not reversed. A number 7 Romeo-Blackwood drain was | | placed in the woundand brought out through a separate stab incision inferiorly. The | | fasciawas then closed with running 3-0 Vicryl suture. The subcutaneous tissuewas closed | | with running 3-0 Vicryl suture. The skin closed with 4-0 Biosynand Dermabond applied. | | She was then returned to the recovery area instable condition. She seemed to have | | tolerated the procedure well.MIRELA SALGADO, [facility] Clinic Foundationessor of SurgeryFORMERLY [facility], [facility] / [id number] / | | [id number] / [id number] / T: 03/17/2012 | |was no pulse. The anterior tibial artery was isolated and controlled with | |the vessel loop. The soleus muscle was taken down for a short distance | |allowing visualization of the tibioperoneal trunk after taking the anterior | |tibial veins crossing the tibioperoneal trunk. Tibioperoneal trunk was | |then controlled with a vessel loop. Dissection was carried down below the | |level of visible clot through the arterial wall. Ms. Hartley was then given 3000 | |units of additional intravenous heparin. She was already on a heparin drip. A | |horizontal arteriotomy was made. Additional heparin had been allowed to | |circulate for 3 minutes. The arteriotomy was located just proximal to the | |takeoff of the anterior tibial artery. A number 4 Nevaeh catheter was | |used to extract thrombus from the proximal popliteal artery with | |re-establishment of very vigorous inflow. A number 3 Nevaeh catheter was | |passed down the anterior tibial vessel and only passed to about 7 to 8 cm | |but some clot was withdrawn and some backbleeding was obtained from the | |anterior tibial artery. | | | |The posterior tibial and peroneal arteries did not back bleed with opening | |of the vessel, however with passing a number 3 Nevaeh down the | |tibioperoneal trunk, there was good return of the Nevaeh with clot. There | |was good backbleeding from the tibial peroneal trunk. The lumen was | |irrigated with heparinized saline solution. The arteriotomy was then | |closed with interrupted 7-0 Prolene sutures and flow was restored. | |Continuous-wave Doppler revealed an excellent Doppler signal at the | |posterior tibial artery, and a monophasic Doppler signal at the level of | |the dorsal pedal artery at the ankle. There was a very strong pulse in the | |popliteal artery and throughout the length of the tibioperoneal trunk in | |the incision. This was felt to be adequate revascularization. The heparin | |was not reversed. A number 7 Romeo-Blackwood drain was placed in the wound | |and brought out through a separate stab incision inferiorly. The fascia | |was then closed with running 3-0 Vicryl suture. The subcutaneous tissue | |was closed with running 3-0 Vicryl suture. The skin closed with 4-0 Biosyn | |and Dermabond applied. She was then returned to the recovery area in | |stable condition. She seemed to have tolerated the procedure well. | | | | | | | |MIRELA SALGADO MD | |electric truck operator | | | |GLM / HS | |[id number] / [id number] / [id number] / | | | | | + + HEPARIN, EITHER STANDARD / LMW, BLOOD (03/18/2012 10:26 AM PST) + +-------+ + + + [...] unreliable for: | | | Total bilirubin >6.6mg/dL | | | Triglycerides >360 mg/dL | | | or Moderate to Gross Hemolysis | | + + + + + + + + | Performing | Address | City/State/Zipcode | Phone Number | | Organization | | | | + + + + + | [facility] | [address] | [place] [address] | | | SERVICES, CORE | [address] | | | + + + + + LDH TOTAL, PLASMA (03/18/2012 8:10 AM PST) + +---------+ + + + | Component | Value | Ref Range | Performed | Pathologist | | | | | At | Signature | + +---------+ + + + | LD TOTAL, | 753 (H) | 110 - 205 U/L | [facility] | | | PLASMA | | | LABORATORY | | | | | | SERVICES, | | | | | | CORE | | + +---------+ + + + | LD CMNT | Sl Hemo | | [facility] | [...] under test result. | LABORATORY | | | SERVICES, CORE | + + + + + + + + | Performing | Address | City/State/Zipcode | Phone Number | | Organization | | | | + + + + + | [facility] | [address] | [place] [address] | | | SERVICES, CORE | [address] | | | + + + + + BILIRUBIN TOTAL (03/18/2012 8:10 AM PST) + +-------+ + + + | Component | Value | Ref Range | Performed | Pathologist | | | | | At | Signature | + +-------+ + + + | BILIRUBIN | 0.4 | 0.3 - 1.2 mg/dL | [facility] [...] | + + + + + | [facility] | [address] | [place] [address] | | | SERVICES, CORE | [address] | | | + + + + + CBC (03/18/2012 8:10 AM PST) + + + + + + | Component | Value | Ref Range | Performed | Pathologist | | | | | At | Signature | + + + + + + | WHITE CELL | 23.8 (H) | 4.4 - 11.0 K/cu | [facility] | | | COUNT | | mm | LABORATORY | | | | | | SERVICES, | | | | | | CORE | | + + + + + + | RED CELL | 3.60 (L) | 4.00 - 5.20 | [facility] | | | COUNT | | M/cu mm | LABORATORY | | | | | | SERVICES, | | | | | | CORE | | + + + + + + | HEMOGLOBIN | 9.7 (L) | 12.0 - 16.0 | [facility] | | | | | g/dL | LABORATORY | | | | | | SERVICES, | | | | | | CORE | | + + + + + + | HEMATOCRIT | 30.9 (L) | 36.0 - 46.0 % | [...] + + + | MCHC | 31.4 (L) | 33.4 - 35.5 | [facility] | | | | | g/dL | LABORATORY | | | | | | SERVICES, | | | | | | CORE | | + + + + + + | RDW | 23.6 (H) | 11.5 - 15.0 % | [facility] | | | | | | LABORATORY | | | | | | SERVICES, | | | | | | CORE | | + + + + + + | PLATELET | 286 | 150 - 400 K/cu | [facility] [...] | + + + + + | [facility] | [address] | [place] [address] | | | SERVICES, CORE | [address] | | | + + + + + HEPARIN, EITHER STANDARD / LMW, BLOOD (03/18/2012 8:10 AM PST) + +-------+ + + + | Component | Value | Ref Range | Performed | Pathologist | | | | | At | Signature | + +-------+ + + + | HEPARIN, | 0.34 | U/mL | [facility] | | | [...] unreliable for: | | | Total bilirubin >6.6mg/dL | | | Triglycerides >360 mg/dL | | | or Moderate to Gross Hemolysis | | + + + + + + + + | Performing | Address | City/State/Zipcode | Phone Number | | Organization | | | | + + + + + | [facility] | [address] | [place] [address] | | | SERVICES, CORE | [address] | | | + + + + + INR (03/18/2012 8:10 AM PST) + + + + + + | Component | Value | Ref Range | Performed | Pathologist | | | | | At | Signature | + + + + + + | INR | 1.26 (H) | 0.90 - 1.20 INR | [...] | + + + + + | [facility] | [address] | [place] [address] | | | SERVICES, CORE | [address] | | | + + + + + BASIC METABOLIC SET (NA, K, CL, TCO2, BUN, CR, GLU, CA) (03/18/2012 8:10 AM PST) + +---------+ + + + | Component | Value | Ref Range | Performed | Pathologist | | | | | At | Signature | + +---------+ + + + | GLUCOSE, | 75 | 60 - 99 mg/dL | [facility] | | | PLASMA | | | LABORATORY | | | (LAB) | | | SERVICES, | | | | | | CORE | | + +---------+ + + + | BUN, PLASMA | 2 (L) | 6 - 20 mg/dL | [facility] | | | (LAB) | | | LABORATORY | | | | | | SERVICES, | | | | | | CORE | | + +---------+ + + + | CREATININE | 0.73 | 0.60 - 1.10 | [facility] | | | PLASMA | | mg/dL | LABORATORY | | | (LAB) | | | SERVICES, | | | | | | CORE | | + +---------+ + + + | SODIUM, | 143 | 136 - 145 | [facility] | [...] +---------+ + + + | CHLORIDE, | 109 (H) | 97 - 108 mmol/L | [...] +---------+ + + + | CALCIUM, | 8.0 (L) | 8.6 - 10.2 | [facility] | | | PLASMA | | mg/dL | LABORATORY | | | (LAB) | | | SERVICES, | | | | | | CORE | | + +---------+ + + + | ANION GAP | 10 | 4 - 11 mmol/L | [facility] | | | | [...] under test result. | LABORATORY | | | JANELL SHARP | + + + + + + + + | Performing | Address | City/State/Zipcode | Phone Number | | Organization | | | | + + + + + | [facility] | [address] | [place] [address] | | | JANELL SHARP | [address] | | | + + + + + CAPILLARY BLOOD GLUCOSE (NO CHG), POC (03/18/2012 6:34 AM PST) + +---------+ + + + | Component | Value | Ref Range | Performed | Pathologist | | | | | At | Signature | + +---------+ + + + | BLOOD | 102 (H) | 60 - 99 [...] [facility] | [address] | [place], [place] | | | [place], [place] CARE | [address] | [address] | | | TESTS | | | | + + + + + CAPILLARY BLOOD GLUCOSE (NO CHG), POC (03/17/2012 11:01 PM PST) + +---------+ + + + | Component | Value | Ref Range | Performed | Pathologist | | | | | At | Signature | + +---------+ + + + | BLOOD | 111 (H) | 60 - 99 mg/dL | [...] [facility] | [address] | [place], [place] | | | [facility] | [facility] | [address] | | | TESTS | | | | + + + + + CAPILLARY BLOOD GLUCOSE (NO CHG), POC (03/17/2012 5:29 PM PST) + +---------+ + + + | Component | Value | Ref Range | Performed | Pathologist | | | | | At | Signature | + +---------+ + + + | BLOOD | 103 (H) | 60 - 99 [...] [facility] | [address] | [place], [place] | | | [facility] | [address] | [address] | | | TESTS | | | | + + + + + CBC (03/17/2012 6:55 AM PST) + + + + + + | Component | Value | Ref Range | Performed | Pathologist | | | | | At | Signature | + + + + + + | WHITE CELL | 24.9 (H) | 4.4 - 11.0 K/cu | [facility] | | | COUNT | | mm | LABORATORY | | | | | | SERVICES, | | | | | | CORE | | + + + + + + | RED CELL | 3.64 (L) | 4.00 - 5.20 | [facility] | | | COUNT | | M/cu mm | LABORATORY | | | | | | SERVICES, | | | | | | CORE | | + + + + + + | HEMOGLOBIN | 9.9 (L) | 12.0 - 16.0 | [facility] | | | | | g/dL | LABORATORY | | | | | | SERVICES, | | | | | | CORE | | + + + + + + | HEMATOCRIT | 31.0 (L) | 36.0 - 46.0 % | [facility] | | | | | | LABORATORY | | | | | | SERVICES, | | | | | | CORE | | + + + + + + | MCV | 85.0 | 80.0 - 96.0 fL | [facility] | | | | | | LABORATORY | | | | | | SERVICES, | | | | | | CORE | | + + + + + + | MCHC | 31.9 (L) | 33.4 - 35.5 | [facility] | | | | | g/dL | LABORATORY | | | | | | SERVICES, | | | | | | CORE | | + + + + + + | RDW | 23.0 (H) | 11.5 - 15.0 % | [facility] | | | | | | LABORATORY | | | | | | SERVICES, | | | | | | CORE | | + + + + + + | PLATELET | 535 (H) | 150 - 400 K/cu | [...] | + + + + + | [facility] | [address] | [place] [address] | | | SERVICES, CORE | [address] | | | + + + + + HEPARIN, EITHER STANDARD / LMW, BLOOD (03/17/2012 6:55 AM PST) + +-------+ + + + | Component | Value | Ref Range | Performed | Pathologist | | | | | At | Signature | + +-------+ + + + | HEPARIN, | 0.42 | U/mL | [facility] | | | [...] unreliable for: | | | Total bilirubin >6.6mg/dL | | | Triglycerides >360 mg/dL | | | or Moderate to Gross Hemolysis | | + + + + + + + + | Performing | Address | City/State/Zipcode | Phone Number | | Organization | | | | + + + + + | [facility] | [address] | [place] [address] | | | ARON, CORE | [address] | | | + + + + + INR (03/17/2012 6:55 AM PST) + + + + + + | Component | Value | Ref Range | Performed | Pathologist | | | | | At | Signature | + + + + + + | INR | 1.23 (H) | 0.90 - 1.20 INR | [...] | + + + + + | [facility] | [address] | [place] [address] | | | SERVICES, [facility] | [address] | | | + + + + + BASIC METABOLIC SET (NA, K, CL, TCO2, BUN, CR, GLU, CA) (03/17/2012 6:55 AM PST) + +---------+ + + + | Component | Value | Ref Range | Performed | Pathologist | | | | | At | Signature | + +---------+ + + + | GLUCOSE, | 91 | 60 - 99 mg/dL | [facility] | | | PLASMA | | | LABORATORY | | | (LAB) | | | SERVICES, | | | | | | CORE | | + +---------+ + + + | BUN, PLASMA | 3 (L) | 6 - 20 mg/dL | [facility] | | | (LAB) | | | LABORATORY | | | | | | SERVICES, | | | | | | CORE | | + +---------+ + + + | CREATININE | 0.66 | 0.60 - 1.10 | [facility] | | | PLASMA | | mg/dL | LABORATORY | | | (LAB) | | | SERVICES, | | | | | | CORE | | + +---------+ + + + | SODIUM, | 143 | 136 - 145 | [facility] | | | PLASMA | | mmol/L | LABORATORY | | | (LAB) | | | SERVICES, | | | | | | CORE | | + +---------+ + + + | POTASSIUM, | 2.9 (L) | 3.4 - 5.0 | [facility] | | | PLASMA | | mmol/L | LABORATORY | | | (LAB) | | | SERVICES, | | | | | | CORE | | + +---------+ + + + | CHLORIDE, | 109 (H) | 97 - 108 mmol/L | [facility] | | | PLASMA | | | LABORATORY | | | (LAB) | | | SERVICES, | | | | | | CORE | | + +---------+ + + + | TOTAL CO2, | 23 | 21 - 32 mmol/L | [facility] | | | PLASMA | | | LABORATORY | | | (LAB) | | | SERVICES, | | | | | | CORE | | + +---------+ + + + | CALCIUM, | 8.3 (L) | 8.6 - 10.2 | [facility] | | | PLASMA | | mg/dL | LABORATORY | | | (LAB) | | | SERVICES, | | | | | | CORE | | + +---------+ + + + | ANION GAP | 11 | 4 - 11 mmol/L | [facility] | | | | [...] | + + + + + | [facility] | [address] | [place] [address] | | | SERVICES, CORE | [address] | | | + + + + + CAPILLARY BLOOD GLUCOSE (NO CHG), POC (03/17/2012 1:01 AM PST) + +---------+ + + + | Component | Value | Ref Range | Performed | Pathologist | | | | | At | Signature | + +---------+ + + + | BLOOD | 106 (H) | 60 - 99 mg/dL | [facility] - | | | GLUCOSE, | | [...] [facility] | [address] | [place], [place] | | | [facility] | [address] | [address] | | | TESTS | | | | + + + + + ANTIBODY SCREEN (03/16/2012 8:48 PM PST) + + + + + [...] [facility] | [address] | [place] [address] | | | SERVICES, | [address] | | | | TRANSFUSION MEDICINE | | | | + + + + + ABO & RH TYPE (03/16/2012 8:48 PM PST) + + + + + [...] [facility] | [address] | [place] [address] | | | SERVICES, | [address] | | | | TRANSFUSION MEDICINE | | | | + + + + + HEPARIN, EITHER STANDARD / LMW, BLOOD (03/16/2012 8:48 PM PST) + +-------+ + + + | Component | Value | Ref Range | Performed | Pathologist | | | | | At | Signature | + +-------+ + + + | HEPARIN, | 0.41 | U/mL | [facility] | | | [...] unreliable for: | | | Total bilirubin >6.6mg/dL | | | Triglycerides >360 mg/dL | | | or Moderate to Gross Hemolysis | | + + + + + + + + | Performing | Address | City/State/Zipcode | Phone Number | | Organization | | | | + + + + + | [facility] | [address] | [place] [address] | | | SERVICES, CORE | [address] | | | + + + + + CAPILLARY BLOOD GLUCOSE (NO CHG), POC (03/16/2012 6:34 PM PST) + +---------+ + + + | Component | Value | Ref Range | Performed | Pathologist | | | | | At | Signature | + +---------+ + + + | BLOOD | 134 (H) | 60 - 99 mg/dL | [facility] - | | | GLUCOSE, | | | [facility] | | | POC | | | [...] + + + + + | [facility] | [address] | [place], [place] | | | [facility] [place] | [facility] | [address] | | | TESTS | | | | + + + + + [facility] VEIN MAPPING LOWER EXTREMITY BILAT (03/16/2012 6:09 PM PST) + + + + + + | Component | Value | Ref Range | Performed | Pathologist | | | | | At | Signature | + + + + + + | [facility] | BILATERAL LOWER | | | | | VEIN | EXTREMITY GREAT | | | | | MAPPING | SAPHENOUS VEIN MAPPING: | | | | | LOWER | 03/16/2012 Dictated | | | | | EXTREMITY | 03/18/2012 CLINICAL | | | | | BILATERAL | INDICATION: Preop for | | | | | | pain. FINDINGS: The | | | | | | great saphenous veins | | | | | | were mapped with a | | | | | | Duplexscanner | | | | | | bilaterally. On the | | | | | | right side, the great | | | | | | saphenous waspatent from | | | | | | the ankle to the | | | | | | saphenofemoral junction | | | | | | with a totallength of 76 | | | | | | cm. The right calf | | | | | | segment great saphenous | | | | | | measures3.2-4.4 mm, in | | | | | | the right thigh segment | | | | | | great saphenous | | | | | | measures4.9-6.3 mm. On | | | | | | the left side, the | | | | | | great saphenous was | | | | | | similarlypatent with a | | | | | | total length of 76 cm. | | | | | | The left calf segment | | | | | | greatsaphenous measures | | | | | | 3.3-4.5 mm and the left | | | | | | thigh great | | | | | | saphenousmeasures | | | | | | 3.6-6.2 mm. IMPRESSION: | | | | | | Patent great saphenous | | | | | | veins bilaterally with | | | | | | diameters and length | | | | | | asstated above. END | | | | | | IMPRESSION: Attending | | | | | | Radiologists: ,Author: | | | | | | VENKATA HOOK M.D. I | | | | | | have personally viewed | | | | | | this procedure/exam, | | | | | | reviewed this report,and | | | | | | made changes to it | | | | | | where appropriate. | | | | | | Final/Electronically | | | | | | signed / Venkata Hook | | | | | | Preliminary / | | | | | | Sonia Coulterr | | | | + + + + + + + + | Specimen | + + | | + + + +---------+ + + | Performing | Address | City/State/Zipcode | Phone Number | | Organization | | | | + +---------+ + + | [facility] DEPARTMENT OF | | | | | RADIOLOGY | | | | + +---------+ + + VASC LAB VENOUS DUPLEX LOWER EXTREMITY BILAT COMP (03/16/2012 6:09 PM PST) + + + + + + | Component | Value | Ref Range | Performed | Pathologist | | | | | At | Signature | + + + + + + | [facility] | BILATERAL LOWER | | | | | VENOUS | EXTREMITY VENOUS DUPLEX | | | | | DUPLEX | SCAN: 03/16/2012 | | | | | LOWER | Dictated 03/18/2012 | | | | | EXTREMITY | CLINICAL INDICATION: | | | | | BILATERAL | Transient ischemic | | | | | COMPLETE | attack with possible | | | | | | patentforamen ovale. | | | | | | FINDINGS: The deep and | | | | | | superficial veins of | | | | | | both lower | | | | | | extremitieswere examined | | | | | | with a Duplex scanner. | | | | | | On both lower | | | | | | extremities, thedeep and | | | | | | superficial veins had | | | | | | normal phasic flow with | | | | | | normalresponse to | | | | | | augmentation and | | | | | | compression. There is | | | | | | an incidentalfinding of | | | | | | a nonvascularized | | | | | | structure in the right | | | | | | popliteal fossameasuring | | | | | | 1.5 x 2.9 x 3.5 cm. | | | | | | This is mostly | | | | | | echolucent. IMPRESSION: | | | | | | Patent bilateral lower | | | | | | extremity deep and | | | | | | superficial veins | | | | | | withoutevidence for deep | | | | | | vein thrombosis. | | | | | | There is a fluid | | | | | | collection inthe right | | | | | | popliteal fossa, | | | | | | possibly representing a | | | | | | Andres's cyst. END | | | | | | IMPRESSION: Attending | | | | | | Radiologists: ,Author: | | | | | | VENKATA HOOK M.D. I | | | | | | have personally viewed | | | | | | this procedure/exam, | | | | | | reviewed this report,and | | | | | | made changes to it | | | | | | where appropriate. | | | | | | Final/Electronically | | | | | | signed / Venkata Hook | | | | | | Preliminary / | | | | | | Sonia Coulterr | | | | + + + [...] + CAPILLARY BLOOD GLUCOSE (NO CHG), POC (03/16/2012 4:25 PM PST) + +---------+ + + + | Component | Value | Ref Range | Performed | Pathologist | | | | | At | Signature | + +---------+ + + + | BLOOD | 101 (H) | 60 - 99 mg/dL | [facility] - | | | GLUCOSE, | | [...] [facility] | [address] | [place], [place] | | | [facility] | [facility] | [address] | | | TESTS | | | | + + + + + CAPILLARY BLOOD GLUCOSE (NO CHG), POC (03/16/2012 1:56 PM PST) + +---------+ + + + | Component | Value | Ref Range | Performed | Pathologist | | | | | At | Signature | + +---------+ + + + | BLOOD | 117 (H) | 60 - 99 [...] [facility] | [address] | [place], [place] | | | [facility] | [address] | [address] | | | TESTS | | | | + + + + + HEPARIN, EITHER STANDARD / LMW, BLOOD (03/16/2012 12:33 PM PST) + +-------+ + + + | Component | Value | Ref Range | Performed | Pathologist | | | | | At | Signature | + +-------+ + + + | HEPARIN, | 0.65 | U/mL | [facility] | | | [...] unreliable for: | | | Total bilirubin >6.6mg/dL | | | Triglycerides >360 mg/dL | | | or Moderate to Gross Hemolysis | | + + + + + + + + | Performing | Address | City/State/Zipcode | Phone Number | | Organization | | | | + + + + + | [facility] | [address] | [place] [address] | | | SERVICES, CORE | [address] | | | + + + + + CAPILLARY BLOOD GLUCOSE (NO CHG), POC (03/16/2012 7:34 AM PST) + +---------+ + + + | Component | Value | Ref Range | Performed | Pathologist | | | | | At | Signature | + +---------+ + + + | BLOOD | 115 (H) | 60 - 99 mg/dL | [...] [facility] | [address] | [place], [place] | | | [facility] | [address] | [address] | | | TESTS | | | | + + + + + HEPARIN, EITHER STANDARD / LMW, BLOOD (03/16/2012 6:54 AM PST) + +-------+ + + + | Component | Value | Ref Range | Performed | Pathologist | | | | | At | Signature | + +-------+ + + + | HEPARIN, | 0.18 | U/mL | [facility] | | | [...] unreliable for: | | | Total bilirubin >6.6mg/dL | | | Triglycerides >360 mg/dL | | | or Moderate to Gross Hemolysis | | + + + + + + + + | Performing | Address | City/State/Zipcode | Phone Number | | Organization | | | | + + + + + | [facility] | [address] | [place] [address] | | | SERVICES, CORE | [address] | | | + + + + + CBC (03/16/2012 6:54 AM PST) + + + + + + | Component | Value | Ref Range | Performed | Pathologist | | | | | At | Signature | + + + + + + | WHITE CELL | 24.9 (H) | 4.4 - 11.0 K/cu | [facility] | | | COUNT | | mm | LABORATORY | | | | | | SERVICES, | | | | | | CORE | | + + + + + + | RED CELL | 3.84 (L) | 4.00 - 5.20 | [facility] [...] + + + + | MCV | 82.6 | 80.0 - 96.0 fL | [facility] | | | | | | LABORATORY | | | | | | SERVICES, | | | | | | CORE | | + + + + + + | MCHC | 31.8 (L) | 33.4 - 35.5 | [facility] | | | | | g/dL | LABORATORY | | | | | | SERVICES, | | | | | | CORE | | + + + + + + | RDW | 22.2 (H) | 11.5 - 15.0 % | [facility] | | | | | | LABORATORY | | | | | | SERVICES, | | | | | | CORE | | + + + + + + | PLATELET | 506 (H) | 150 - 400 K/cu | [...] | + + + + + | [facility] | [address] | [place] [address] | | | SERVICES, CORE | [address] | | | + + + + + INR (03/16/2012 6:54 AM PST) + +-------+ + + + | Component | Value | Ref Range | Performed | Pathologist | | | | | At | Signature | + +-------+ + + + | INR | 1.07 | 0.90 - 1.20 INR | [facility] [...] [facility] | [address] | [place] [address] | | | SERVICES, CORE | [address] | | | + + + + + BASIC METABOLIC SET (NA, K, CL, TCO2, BUN, CR, GLU, CA) (03/16/2012 6:54 AM PST) + +---------+ + + + [...] + + + | BUN, PLASMA | 4 (L) | 6 - 20 mg/dL | [facility] | | | (LAB) | | | LABORATORY | | | | | | SERVICES, | | | | | | CORE | | + +---------+ + + + | CREATININE | 0.69 | 0.60 - 1.10 | [facility] | [...] +---------+ + + + | POTASSIUM, | 3.6 [...] + + + | TOTAL CO2, | 23 | 21 - 32 mmol/L | [facility] [...] + + + | ANION GAP | 11 | 4 - 11 mmol/L | [facility] | | | | [...] [facility] | [address] | [place] [address] | | | JANELL SHARP | [address] | | | + + + + + CAPILLARY BLOOD GLUCOSE (NO CHG), POC (03/15/2012 10:30 PM PST) + +---------+ + + + | Component | Value | Ref Range | Performed | Pathologist | | | | | At | Signature | + +---------+ + + + | BLOOD | 149 (H) | 60 - 99 mg/dL | [...] + | [facility] | [address] | [place], [place] | | | [facility] | [address] | [address] | | | TESTS | | | | + + + + + CAPILLARY BLOOD GLUCOSE (NO CHG), POC (03/15/2012 7:55 PM PST) + +---------+ + + + | Component | Value | Ref Range | Performed | Pathologist | | | | | At | Signature | + +---------+ + + + | BLOOD | 125 (H) | 60 - 99 mg/dL | [facility] - | | | GLUCOSE, | | [...] [facility] | [address] | [place], [place] | | | [facility] | [address] | [address] | | | TESTS | | | | + + + + + CT CTA ABDOMEN RUN OFF WWO CONT (03/15/2012 2:13 PM PST) + + + + + + | Component | Value | Ref Range | Performed | Pathologist | | | | | At | Signature | + + + + + + | CT CTA ABD | CV - CTA runoff HISTORY: | | | | | RUN OFF WWO | 56 year old female | | | | | CONT | with history of Crohn's | | | | | | disease admittedwith | | | | | | abdominal pain and right | | | | | | lower extremity | | | | | | ischemia . TECHNIQUE: | | | | | | CT scanning of the | | | | | | abdomen, pelvis, and | | | | | | bilateral | | | | | | lowerextremities was | | | | | | performed using | | | | | | high-resolution CTA | | | | | | vascularprotocol. | | | | | | Precontrast CT was | | | | | | followed by thin section | | | | | | arterial phaseCTA from | | | | | | the dome of the | | | | | | diaphragm through the | | | | | | feet. POST PROCESSING: | | | | | | 3D Multiplanar | | | | | | reformatted (MPR) images | | | | | | werecreated utilizing | | | | | | maximum intensity | | | | | | projection (MIP) | | | | | | technique andarchived on | | | | | | the PACS system. | | | | | | Comparison: Outside CT | | | | | | dated 03/12/12; CT | | | | | | 08/19/10 FINDINGS:Lower | | | | | | chest: Visualized lung | | | | | | bases demonstrate small | | | | | | bilateralpleural | | | | | | effusions with partial | | | | | | atelectasis in the | | | | | | visualized lowerlobes. | | | | | | Abdomen: The visualized | | | | | | portion of the liver | | | | | | demonstrates no | | | | | | intra-orextra hepatic | | | | | | biliary dilatation. No | | | | | | focal hepatic lesion is | | | | | | seen inthe visualized | | | | | | portion of the liver. | | | | | | The pancreas is | | | | | | unremarkable.The spleen | | | | | | appears smaller compared | | | | | | to prior exam likely | | | | | | related | | | | | | toautoinfarction. | | | | | | There are small | | | | | | cortical irregularities | | | | | | in thekidneys | | | | | | bilaterally. Bilateral | | | | | | adrenal glands are | | | | | | unremarkable. Theurinary | | | | | | bladder has air and a | | | | | | Wolf catheter. There is | | | | | | a small hiatalhernia. | | | | | | There is mesenteric fat | | | | | | stranding to the region | | | | | | of theascending colon | | | | | | with mildly prominent | | | | | | bowel loops. There is | | | | | | evidenceof prior bowel | | | | | | surgery in the region of | | | | | | the cecum. There is | | | | | | noevidence of a | | | | | | mechanical bowel | | | | | | obstruction, | | | | | | pneumatosis, | | | | | | orpneumoperitoneum. A | | | | | | small focal area of | | | | | | fluid collection is | | | | | | seenadjacent to the | | | | | | rectum, unchanged | | | | | | compared to the most | | | | | | recent priorstudy. | | | | | | There is no free | | | | | | pelvic fluid or | | | | | | lymphadenopathy. The | | | | | | uterusis surgically | | | | | | absent. Aorta: The aorta | | | | | | is normal in caliber | | | | | | without any | | | | | | ulceration,dissection or | | | | | | focal stenosis. Mild | | | | | | atherosclerotic | | | | | | calcification isseen in | | | | | | the aortic wall most | | | | | | prominent in the | | | | | | infrarenal segment. Two | | | | | | polypoid filling defects | | | | | | are seen in the | | | | | | infrarenal | | | | | | abdominalaorta above the | | | | | | aortic bifurcation | | | | | | likely representing | | | | | | polypoidthrombus. | | | | | | These were seen on the | | | | | | prior study from | | | | | | 08/19/10; however,the | | | | | | volume is slightly | | | | | | decreased. In | | | | | | addition, new polypoid | | | | | | thrombusis seen in the | | | | | | descending thoracic | | | | | | aorta above the | | | | | | hiatus.Celiac artery: | | | | | | There is chronic | | | | | | occlusion of the celiac | | | | | | artery withretrograde | | | | | | flow to the hepatic | | | | | | arteries from the GDA. | | | | | | The splenicartery is | | | | | | chronically occluded. | | | | | | The left gastric | | | | | | artery fills | | | | | | viaretrograde | | | | | | collateralization from | | | | | | the right gastric artery | | | | | | arisingoff of the | | | | | | proximal left hepatic | | | | | | artery.Superior | | | | | | mesenteric artery: | | | | | | Patent at its ostium. | | | | | | There isnonocclusive | | | | | | thrombus in the | | | | | | ileocolic branches of | | | | | | the superiormesenteric | | | | | | artery best visualized | | | | | | on series 501 slice 82 | | | | | | and coronalimages series | | | | | | 504 slice 53.Inferior | | | | | | mesenteric artery: | | | | | | Patent without any | | | | | | clinically | | | | | | significantstenosis.Estefany | | | | | | l arteries: Single | | | | | | patent bilateral renal | | | | | | arteries without | | | | | | anysignificant stenosis. | | | | | | Left runoff: Common | | | | | | iliac artery: Normal | | | | | | caliber and | | | | | | patent.External iliac | | | | | | artery: Focal calcific | | | | | | atheromatous change | | | | | | without anysignificant | | | | | | stenosis.Internal iliac | | | | | | artery: Normal caliber | | | | | | and patent.Common | | | | | | femoral artery: Normal | | | | | | caliber and | | | | | | patent.Profunda femoris: | | | | | | Normal caliber and | | | | | | patent.Superficial | | | | | | femoral artery: Normal | | | | | | caliber without any | | | | | | stenosis.Popliteal | | | | | | artery: Normal caliber | | | | | | and patent.Anterior | | | | | | tibial artery: Patent | | | | | | only the proximal aspect | | | | | | with | | | | | | distalocclusion.Tibioper | | | | | | wise trunk: Patent with | | | | | | normal caliber.Peroneal | | | | | | artery: Occluded | | | | | | proximally with distal | | | | | | reconstitution | | | | | | fromcollaterals.Posterio | | | | | | r tibial artery: Patent | | | | | | and dominant supply to | | | | | | the leg andfoot.Dorsalis | | | | | | pedis: Reconstituted | | | | | | from branches of the | | | | | | reconstitutedperoneal | | | | | | artery.Plantar arch: | | | | | | Patent. Right runoff: | | | | | | Common iliac artery: | | | | | | Normal caliber and | | | | | | patent.External iliac | | | | | | artery: Normal caliber | | | | | | and patent.Internal | | | | | | iliac artery: Normal | | | | | | caliber and | | | | | | patent.Common femoral | | | | | | artery: Normal caliber | | | | | | and patent.Profunda | | | | | | femoris: Normal caliber | | | | | | and patent.Superficial | | | | | | femoral artery: Normal | | | | | | caliber and | | | | | | patent.Popliteal artery: | | | | | | Occluded at the level | | | | | | of the knee joint likely | | | | | | dueto acute | | | | | | thrombus.Anterior tibial | | | | | | artery: | | | | | | Occluded.Tibioperoneal | | | | | | trunk: Occluded.Peroneal | | | | | | artery: Occluded | | | | | | proximally with distal | | | | | | reconstitution | | | | | | fromcollaterals, likely | | | | | | from genicular | | | | | | branches.Posterior | | | | | | tibial artery: Occluded | | | | | | proximally with | | | | | | distalreconstitution | | | | | | from | | | | | | collaterals.Dorsalis | | | | | | pedis: Reconstituted | | | | | | from the distal peroneal | | | | | | artery.Plantar arch: | | | | | | Patent. Additional | | | | | | findings include Mild | | | | | | degenerative changes are | | | | | | seen in thelower lumber | | | | | | spine. IMPRESSION:1. | | | | | | Polypoid filling defects | | | | | | in the thoracoabdominal | | | | | | aorta asdescribed, with | | | | | | acute occlusion of the | | | | | | right popliteal artery | | | | | | andevidence of | | | | | | nonocclusive thrombus in | | | | | | the ileocolic artery. | | | | | | Cardiacechography is | | | | | | recommended to evaluate | | | | | | for potential additional | | | | | | causesof emboli.2. | | | | | | Inflammatory stranding | | | | | | around the ascending | | | | | | colon, | | | | | | likelyrepresenting | | | | | | ischemic colitis given | | | | | | the presence of thrombus | | | | | | in theileocolic | | | | | | artery.3. 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 Small | | | | | | perirectal fluid | | | | | | collection likely | | | | | | representing an | | | | | | abscesswithout | | | | | | significant change from | | | | | | the most recent CT. | | | | | | These findings were | | | | | | discussed with Dr. Doherty | | | | | | at the time of | | | | | | diagnosis Attending | | | | | | Radiologists: Laci | | | | | | Fortino GrayAuthor: | | | | | | DELFINO KOCH MD I | | | | | | have personally viewed | | | | | | this procedure/exam, | | | | | | reviewed this report,and | | | | | | made changes to it | | | | | | where appropriate. | | | | | | Final/Electronically | | | | | | signed / Laci | | | | | | Marina 03/17/2012 9:24 | | | | | | AM | | | | + + + + + + + + | Specimen | + + | | + + + +---------+ + + | Performing | Address | City/State/Zipcode | Phone Number | | Organization | | | | + +---------+ + + | [facility] | | | | | RADIOLOGY | | | | + +---------+ + + VASC LAB ARTER DUPLEX LOWER EXTREMITY BILATERAL COMPLETE (03/15/2012 12:54 PM PST) + + + + + + | Component | Value | Ref Range | Performed | Pathologist | | | | | At | Signature | + + + + + + | VASC LAB | BILATERAL LOWER | | | | | ARTERY | EXTREMITY ARTERIAL | | | | | DUPLEX | DUPLEX SCAN: | | | | | LOWER | 03/15/2012 Dictated | | | | | EXTREMITY | 03/15/2012 CLINICAL | | | | | BILATERAL | INDICATION: Followup | | | | | COMPLETE | of lower extremity | | | | | | arterialthromboembolism | | | | | | while on | | | | | | anticoagulation. | | | | | | FINDINGS: The upper | | | | | | extremity blood | | | | | | pressures measure 126 | | | | | | and 130mmHg on the right | | | | | | and left respectively. | | | | | | Ankle/brachial | | | | | | indicesmeasure 0.6 on | | | | | | the right and 1.23 on | | | | | | the left. The common | | | | | | femoral,deep femoral, | | | | | | superficial femoral, | | | | | | popliteal, and tibial | | | | | | arterieswere examined | | | | | | with the duplex scanner. | | | | | | On the right side, | | | | | | the commonfemoral, deep | | | | | | femoral, and superficial | | | | | | femoral arteries were | | | | | | allpatent with normal | | | | | | antegrade flows and | | | | | | normal triphasic | | | | | | waveformsfrom the common | | | | | | femoral arteries down | | | | | | to the distal | | | | | | superficialfemoral | | | | | | arteries. The proximal | | | | | | and mid right popliteal | | | | | | artery arepatent with a | | | | | | high resistance flow. | | | | | | The distal right | | | | | | poplitealartery is | | | | | | completely thrombosed | | | | | | with reconstitution of | | | | | | the anteriortibial, | | | | | | peroneal, and posterior | | | | | | tibial arteries down to | | | | | | the ankle.The tibial | | | | | | arteries all have | | | | | | monophasic low | | | | | | velocities. On the left | | | | | | side, the common | | | | | | femoral, deep femoral, | | | | | | and superficialfemoral | | | | | | arteries are all patent | | | | | | with normal triphasic | | | | | | waveforms. Theleft | | | | | | popliteal, anterior | | | | | | tibial, and posterior | | | | | | tibial arteries arealso | | | | | | patent with normal | | | | | | antegrade velocities and | | | | | | normal | | | | | | triphasicwaveforms as | | | | | | well. However, the | | | | | | left peroneal artery is | | | | | | patentproximally but it | | | | | | appears to be occluded | | | | | | at the mid and distal | | | | | | calf. IMPRESSION: | | | | | | Abnormal bilateral lower | | | | | | extremity arterial | | | | | | duplex scan | | | | | | consistentwith right | | | | | | distal popliteal artery | | | | | | thrombosis. The left | | | | | | lowerextremity also has | | | | | | thrombosis of the | | | | | | peroneal artery. END | | | | | | IMPRESSION: Attending | | | | | | Radiologists: ,Author: | | | | | | VENKATA HOOK M.D. I | | | | | | have personally viewed | | | | | | this procedure/exam, | | | | | | reviewed this report,and | | | | | | made changes to it | | | | | | where appropriate. | | | | | | Final/Electronically | | | | | | signed / Venkata Hook | | | | | | Preliminary / Kirstie | | | | | | Troy | | | | + + + [...] + CAPILLARY BLOOD GLUCOSE (NO CHG), POC (03/15/2012 12:42 PM PST) + +---------+ + + + | Component | Value | Ref Range | Performed | Pathologist | | | | | At | Signature | + +---------+ + + + | BLOOD | 111 (H) | 60 - 99 mg/dL | [...] [facility] | [address] | [place], [place] | | | [facility] | [address] | [address] | | | TESTS | | | | + + + + + CAPILLARY BLOOD GLUCOSE (NO CHG), POC (03/15/2012 7:05 AM PST) + +---------+ + + + | Component | Value | Ref Range | Performed | Pathologist | | | | | At | Signature | + +---------+ + + + | BLOOD | 122 (H) | 60 - 99 mg/dL | [...] [facility] | [address] | [place], [place] | | | [facility] | [facility] | [address] | | | TESTS | | | | + + + + + HEPARIN, EITHER STANDARD / LMW, BLOOD (03/15/2012 4:50 AM PST) + +-------+ + + + | Component | Value | Ref Range | Performed | Pathologist | | | | | At | Signature | + +-------+ + + + | HEPARIN, | 0.32 | U/mL | [facility] | | | STD LMW | | | LABORATORY | | | | | | SERVICES, | | | | | | SPECIAL IMM | | | | | | + COAG | | + +-------+ + + + [...] LMWH: 0.70 - 1.20 U/mL | SERVICES, | | Tinzaparin, LMWH: Therapeutic range not established. | SPECIAL IMM + | | Preliminary studies suggest range | COAG | | similar to dalteparin. Clinical | | | correlation required. | | | Heparin levels may be unreliable for: | | | Total bilirubin >6.6mg/dL | | | Triglycerides >360 mg/dL | | | or Moderate to Gross Hemolysis | | + + + + + + + + | Performing | Address | City/State/[facility] | Phone Number | | Organization | | | | + + + + + | [facility] | [address] | [place] [address] | | | SPECIAL [facility] | [address] | | | | IMM + COAG | | | | + + + + + ANTICARDIOLIPIN GM, SERUM (03/15/2012 4:50 AM PST) + +-------+ + + + | Component | Value | Ref Range | Performed | Pathologist | | | | | At | Signature | + +-------+ + + + | ANTICARDIOL | <9 | <=19 PL Units | [facility] | | | IPIN IGG | | | LABORATORY | | | | | | SERVICES, | | | | | | SPECIAL IMM | | | | | | + COAG | | + +-------+ + + + | ANTICARDIOL | <9 | <=19 PL Units | [facility] | | | IPIN IGM | | | LABORATORY | | | | | | SERVICES, | | | | | | SPECIAL IMM | | | | | | + COAG | | + +-------+ + + + + + | Specimen | + + | Blood - Blood | + + + + + | Narrative | Performed At | + + + | IgG/IgM: Negative (<20 PL units), Low Positive (20-40 PL | [facility] | | units),Medium Positive (41-80 PL units), High Positive (>80 PL units). | LABORATORY | | | SERVICES, | | | SPECIAL IMM + | | | COAG | + + + + + + + + | Performing | Address | City/State/Zipcode | Phone Number | | Organization | | | | + + + + + | [facility] | [address] | [place] [address] | | | SERVICES, SPECIAL | [address] | | | | IMM + COAG | | | | + + + + + ANTI-B2 GLYCOPROTEIN 1 GM (03/15/2012 4:50 AM PST) + +-------+ + + + | Component | Value | Ref Range | Performed | Pathologist | | | | | At | Signature | + +-------+ + + + | ANTI-B2GPI | <9 | <=19 Units | [facility] | | | IGG | | | LABORATORY | | | | | | SERVICES, | | | | | | SPECIAL IMM | | | | | | + COAG | | + +-------+ + + + | ANTI-B2GP1 | <9 | <=19 Units | [facility] | | | IGM | | | LABORATORY | | | | | | SERVICES, | | | | | | SPECIAL IMM | | | | | | + COAG | | + +-------+ + + + + + | Specimen | + + | Blood - Blood | + + + + + | Narrative | Performed At | + + + | IgG,IgM: Negative (<20 PL units), Low Positive (20-40 PL units), | [facility] | | Medium Positive (41-80 Pl units), High Positive (>80 PL units). | LABORATORY | | | SERVICES, | | | SPECIAL IMM + | | | COAG | + + + + + + + + | Performing | Address | City/State/Zipcode | Phone Number | | Organization | | | | + + + + + | [facility] | [address] | [place] [address] | | | SERVICES, SPECIAL | [address] | | | | IMM + COAG | | | | + + + + + LUPUS INHIBITOR EVALUATION, PLASMA (03/15/2012 4:50 AM PST) + + + + + + | Component | Value | Ref Range | Performed | Pathologist | | | | | At | Signature | + + + + + + | INTERPRETAT | Consistent With Lupus | Negative for | [facility] | | | ION (LUPI) | Like Inhibitor (A) | Lupus Like | LABORATORY | | | | | Inhibitor | SERVICES, | | | | | | SPECIAL IMM | | | | | | + COAG | | + + + + + + | APTT | 45.3 (H) | 26.0 - 36.0 sec | [facility] | | | PATIENT | | | LABORATORY | | | | | | SERVICES, | | | | | | SPECIAL IMM | | | | | | + COAG | | + + + + + + | HEXAGONAL | 14.7 (H) | 0.0-<8.0 sec | [facility] | | | PL APTT | | | LABORATORY | | | | | | SERVICES, | | | | | | SPECIAL IMM | | | | | | + COAG | | + + + + + + | DVVT | 33.0 | 29.2 - 45.4 sec | [facility] | | | | | | LABORATORY | | | | | | SERVICES, | | | | | | SPECIAL IMM | | | | | | + COAG | | + + + + + + + + | Specimen | + + | Blood - Blood | + + + + + + + | Performing | Address | City/State/Zipcode | Phone Number | | Organization | | | | + + + + + | [facility] | [address] | [place] [address] | | | SERVICES, SPECIAL | [address] | | | | IMM + COAG | | | | + + + + + CBC (03/15/2012 4:03 AM PST) + + + + + + | Component | Value | Ref Range | Performed | Pathologist | | | | | At | Signature | + + + + + + | WHITE CELL | 23.7 (H) | 4.4 - 11.0 K/cu | [facility] | | | COUNT | | mm | LABORATORY | | | | | | SERVICES, | | | | | | CORE | | + + + + + + | RED CELL | 3.60 (L) | 4.00 - 5.20 | [facility] [...] + + + + | HEMATOCRIT | 29.3 (L) | 36.0 - 46.0 % | [facility] | | | | | | LABORATORY | | | | | | SERVICES, | | | | | | CORE | | + + + + + + | MCV | 81.5 | 80.0 - 96.0 fL | [facility] | | | | | | LABORATORY | | | | | | SERVICES, | | | | | | CORE | | + + + + + + | MCHC | 31.7 (L) | 33.4 - 35.5 | [facility] | | | | | g/dL | LABORATORY | | | | | | SERVICES, | | | | | | CORE | | + + + + + + | RDW | 21.6 (H) | 11.5 - 15.0 % | [facility] | | | | | | LABORATORY | | | | | | SERVICES, | | | | | | CORE | | + + + + + + | PLATELET | 537 (H) | 150 - 400 K/cu | [...] | + + + + + | [facility] | [address] | [place] [address] | | | SERVICES, CORE | [address] | | | + + + + + HEPARIN, EITHER STANDARD / LMW, BLOOD (03/15/2012 4:03 AM PST) + +-------+ + + + | Component | Value | Ref Range | Performed | Pathologist | | | | | At | Signature | + +-------+ + + + | HEPARIN, | 0.43 | U/mL | [facility] | | | [...] unreliable for: | | | Total bilirubin >6.6mg/dL | | | Triglycerides >360 mg/dL | | | or Moderate to Gross Hemolysis | | + + + + + + + + | Performing | Address | City/State/Zipcode | Phone Number | | Organization | | | | + + + + + | [facility] | [address] | [place] [address] | | | SERVICES, CORE | [address] | | | + + + + + BASIC METABOLIC SET (NA, K, CL, TCO2, BUN, CR, GLU, CA) (03/15/2012 4:03 AM PST) + +---------+ + + + | Component | Value | Ref Range | Performed | Pathologist | | | | | At | Signature | + +---------+ + + + | GLUCOSE, | 111 (H) | 60 - 99 mg/dL | [facility] | | | PLASMA | | | LABORATORY | | | (LAB) | | | SERVICES, | | | | | | CORE | | + +---------+ + + + | BUN, PLASMA | 7 | 6 - 20 mg/dL | [facility] | | | (LAB) | | | LABORATORY | | | | | | SERVICES, | | | | | | CORE | | + +---------+ + + + | CREATININE | 0.69 | 0.60 - 1.10 | [facility] | | | PLASMA | | mg/dL | LABORATORY | | | (LAB) | | | SERVICES, | | | | | | CORE | | + +---------+ + + + | SODIUM, | 139 | 136 - 145 | [facility] | | | PLASMA | | mmol/L | LABORATORY | | | (LAB) | | | SERVICES, | | | | | | CORE | | + +---------+ + + + | POTASSIUM, | 3.8 [...] + + + | TOTAL CO2, | 23 | 21 - 32 mmol/L | [facility] | | | PLASMA | | | LABORATORY | | | (LAB) | | | SERVICES, | | | | | | CORE | | + +---------+ + + + | CALCIUM, | 8.3 (L) | 8.6 - 10.2 | [facility] | | | PLASMA | | mg/dL | LABORATORY | | | (LAB) | | | SERVICES, | | | | | | CORE | | + +---------+ + + + | ANION GAP | 10 | 4 - 11 mmol/L | [facility] | | | | [...] [facility] | [address] | [place] [address] | | | SERVICES, CORE | [address] | | | + + + + + PHOSPHORUS, PLASMA (03/15/2012 4:03 AM PST) + +---------+ + + + [...] | + + + + + | [facility] | [address] | [place] [address] | | | SERVICES, JANELL | [address] | | | + + + + + TRANSTHORACIC ECHOCARDIOGRAM, ADULT (03/15/2012 12:00 AM PST) + + + | Narrative | Performed At | + + + | | | | | | + + + + + | Procedure Note | + + | Vitaliy Faculty - 03/15/2012 6:06 PM PST | + + CAPILLARY BLOOD GLUCOSE (NO CHG), POC (03/14/2012 11:56 PM PST) + +---------+ + + + | Component | Value | Ref Range | Performed | Pathologist | | | | | At | Signature | + +---------+ + + + | BLOOD | 111 (H) | 60 - 99 mg/dL | [...] [facility] | [address] | [place], [place] | | | [facility] | [facility] | [address] | | | TESTS | | | | + + + + + CBC (03/14/2012 9:05 PM PST) + + + + + + | Component | Value | Ref Range | Performed | Pathologist | | | | | At | Signature | + + + + + + | WHITE CELL | 22.6 (H) | 4.4 - 11.0 K/cu | [facility] | | | COUNT | | mm | LABORATORY | | | | | | SERVICES, | | | | | | CORE | | + + + + + + | RED CELL | 3.49 (L) | 4.00 - 5.20 | [facility] [...] + + + + | HEMATOCRIT | 28.4 (L) | 36.0 - 46.0 % | [facility] | | | | | | LABORATORY | | | | | | SERVICES, | | | | | | CORE | | + + + + + + | MCV | 81.3 | 80.0 - 96.0 fL | [facility] | | | | | | LABORATORY | | | | | | SERVICES, | | | | | | CORE | | + + + + + + | MCHC | 31.9 (L) | 33.4 - 35.5 | [facility] | | | | | g/dL | LABORATORY | | | | | | SERVICES, | | | | | | CORE | | + + + + + + | RDW | 21.5 (H) | 11.5 - 15.0 % | [facility] | | | | | | LABORATORY | | | | | | SERVICES, | | | | | | CORE | | + + + + + + | PLATELET | 527 (H) | 150 - 400 K/cu | [...] | + + + + + | [facility] | [address] | [place] [address] | | | SERVICES, CORE | [address] | | | + + + + + CAPILLARY BLOOD GLUCOSE (NO CHG), POC (03/14/2012 7:36 PM PST) + +---------+ + + + [...] + | [facility] | [address] | [place], [place] | | | [facility] | [facility] | [address] | | | TESTS | | | | + + + + + CAPILLARY BLOOD GLUCOSE (NO CHG), POC (03/14/2012 6:58 PM PST) + +---------+ + + + | Component | Value | Ref Range | Performed | Pathologist | | | | | At | Signature | + +---------+ + + + | BLOOD | 112 (H) | 60 - 99 mg/dL | [facility] - | | | GLUCOSE, | | [...] + + + | [facility] | [address] | [place], [place] | | | [facility] | [address] | [address] | | | TESTS | | | | + + + + + VASC LAB CAROTID DUPLEX COMPLETE BILATERAL (03/14/2012 1:47 PM PST) + + + + + + | Component | Value | Ref Range | Performed | Pathologist | | | | | At | Signature | + + + + + + | [facility]ASC LAB | CEREBROVASCULAR | | | | | CAROTID | EXAMINATION: | | | | | DUPLEX | 03/14/2012 Dictated | | | | | COMPLETE | 03/14/2012 CLINICAL | | | | | BILATERAL | INDICATION: History of | | | | | | transient ischemic | | | | | | attacks. FINDINGS: The | | | | | | upper extremity blood | | | | | | pressure measures 106/53 | | | | | | mmHg.Duplex imaging of | | | | | | the carotid bifurcation | | | | | | demonstrates | | | | | | poorvisualization of the | | | | | | right common carotid | | | | | | bifurcation due to | | | | | | thepresence of overlying | | | | | | intravenous lines and | | | | | | surgical | | | | | | dressings.Limited views | | | | | | of the right internal | | | | | | carotid artery | | | | | | demonstrated amild | | | | | | velocity elevation of | | | | | | 105/50 cm/sec. On the | | | | | | left side, the common | | | | | | carotid bifurcation has | | | | | | moderateplaquing with a | | | | | | mild velocity elevation | | | | | | of 99/51 cm/sec for the | | | | | | leftinternal carotid | | | | | | artery. The left | | | | | | external carotid artery | | | | | | has normalantegrade | | | | | | flows and velocities. | | | | | | The vertebral arteries | | | | | | have normalantegrade | | | | | | flows and velocities | | | | | | bilaterally. IMPRESSION: | | | | | | Limited cerebrovascular | | | | | | examination consistent | | | | | | with less than | | | | | | 50%diameter reduction of | | | | | | the internal carotid | | | | | | arteries bilaterally. | | | | | | Theleft external | | | | | | carotid artery also has | | | | | | less than 50% | | | | | | diameterreduction. The | | | | | | more proximal right | | | | | | internal carotid as well | | | | | | as theright external | | | | | | carotid could not be | | | | | | evaluated due to the | | | | | | presence ofoverlying | | | | | | surgical dressings. | | | | | | END IMPRESSION | | | | | | Attending Radiologists: | | | | | | ,Author: VENKATA HOOK, | | | | | | M.D. I have personally | | | | | | viewed this | | | | | | procedure/exam, reviewed | | | | | | this report,and made | | | | | | changes to it where | | | | | | appropriate. | | | | | | Final/Electronically | | | | | | signed / Venkata Hook | | | | | | Preliminary / Davina | | | | | | [place] | | | | + + + [...] + CAPILLARY BLOOD GLUCOSE (NO CHG), POC (03/14/2012 1:03 PM PST) + +---------+ + + + | Component | Value | Ref Range | Performed | Pathologist | | | | | At | Signature | + +---------+ + + + | BLOOD | 145 (H) | 60 - 99 mg/dL | [...] [facility] | [address] | [place], [place] | | | [facility] | [address] | [address] | | | TESTS | | | | + + + + + PRODUCT- RED CELLS LEUKOREDUCED (03/14/2012 12:17 PM PST) + + + + + + | Component | Value | Ref Range | Performed | Pathologist | | | | | At | Signature | + + + + + + | PRODUCT | -1 RED BLOOD | | [facility] | | | DESCRIPTION | CELLS,ADENINE-SALINE | | DEPARTMENT | | | | ADDED,LEUKOCYTES REDUCED | | OF | | | | | | PATHOLOGY | | + + + + + + | PRODUCT | [id number] | | [facility] | | | UNIT [...] + + + + | BLOOD | [address]247 | | [facility] | | | PRODUCT [...] | + + + + + | [facility] | [address] | [place] [address] | | | PATHOLOGY | [address] | | | + + + + + PRODUCT- RED CELLS LEUKOREDUCED (03/14/2012 12:17 PM PST) + + + + + + | Component | Value | Ref Range | Performed | Pathologist | | | | | At | Signature | + + + + + + | PRODUCT | -1 RED BLOOD | | [facility] | | | DESCRIPTION | CELLS,ADENINE-SALINE | | DEPARTMENT | | | | ADDED,LEUKOCYTES REDUCED | | OF | | | | | | PATHOLOGY | | + + + + + + | PRODUCT | [id number] | | [facility] | | | UNIT [...] + + + + | BLOOD | [address]05 | | [facility] | | | PRODUCT [...] + + + + + | [facility] | [address] | [place] [address] | | | PATHOLOGY | [address] | | | + + + + + CBC (03/14/2012 11:50 AM PST) + + + + + + | Component | Value | Ref Range | Performed | Pathologist | | | | | At | Signature | + + + + + + | WHITE CELL | 22.7 (H) | 4.4 - 11.0 K/cu | [facility] | | | COUNT | | mm | LABORATORY | | | | | | SERVICES, | | | | | | CORE | | + + + + + + | RED CELL | 2.87 (L) | 4.00 - 5.20 | [facility] | | | COUNT | | M/cu mm | LABORATORY | | | | | | SERVICES, | | | | | | CORE | | + + + + + + | HEMOGLOBIN | 6.9 (L) | 12.0 - 16.0 | [facility] | | | | | g/dL | LABORATORY | | | | | | SERVICES, | | | | | | CORE | | + + + + + + | HEMATOCRIT | 22.5 (L) | 36.0 - 46.0 % | [facility] | | | | | | LABORATORY | | | | | | SERVICES, | | | | | | CORE | | + + + + + + | MCV | 78.6 (L) | 80.0 - 96.0 fL | [facility] | | | | | | LABORATORY | | | | | | SERVICES, | | | | | | CORE | | + + + + + + | MCHC | 30.6 (L) | 33.4 - 35.5 | [facility] | | | | | g/dL | LABORATORY | | | | | | SERVICES, | | | | | | CORE | | + + + + + + | RDW | 22.8 (H) | 11.5 - 15.0 % | [facility] | | | | | | LABORATORY | | | | | | SERVICES, | | | | | | CORE | | + + + + + + | PLATELET | 593 (H) | 150 - 400 K/cu | [...] | + + + + + | [facility] | [address] | [place] [address] | | | SERVICES, CORE | [address] | | | + + + + + CAPILLARY BLOOD GLUCOSE (NO CHG), POC (03/14/2012 9:39 AM PST) + +---------+ + + + | Component | Value | Ref Range | Performed | Pathologist | | | | | At | Signature | + +---------+ + + + | BLOOD | 143 (H) | 60 - 99 mg/dL | [facility] - | | | GLUCOSE, | | [...] [facility] | [address] | [place], [place] | | | [facility] | [address] | [address] | | | TESTS | | | | + + + + + CAPILLARY BLOOD GLUCOSE (NO CHG), POC (03/14/2012 6:10 AM PST) + +---------+ + + [...] [facility] | [address] | [place], [place] | | | [facility] | [address] | [address] | | | TESTS | | | | + + + + + RETICULOCYTE COUNT (03/14/2012 5:25 AM PST) + +---------+ + + + | Component | Value | Ref Range | Performed | Pathologist | | | | | At | Signature | + +---------+ + + + | RETICULOCYT | 3.2 (H) | 0.5 - 1.5 % | [facility] | | | E COUNT | | | LABORATORY | | | | | | SERVICES, | | | | | | CORE | | + +---------+ + + + | RETIC | 86.7 | 10.0 - 90.0 | [facility] | | | ABSOLUTE # | | K/cu mm | LABORATORY [...] [facility] | [address] | [place] [address] | | | SERVICES, CORE | [address] | | | + + + + + CBC (03/14/2012 5:25 AM PST) + + + + + + | Component | Value | Ref Range | Performed | Pathologist | | | | | At | Signature | + + + + + + | WHITE CELL | 23.4 (H) | 4.4 - 11.0 K/cu | [facility] | | | COUNT [...] + + + + | HEMOGLOBIN | 6.6 (L) | 12.0 - 16.0 | [facility] | | | | | g/dL | LABORATORY | | | | | | SERVICES, | | | | | | CORE | | + + + + + + | HEMATOCRIT | 21.1 (L) | 36.0 - 46.0 % | [facility] | | | | | | LABORATORY | | | | | | SERVICES, | | | | | | CORE | | + + + + + + | MCV | 78.0 (L) | 80.0 - 96.0 fL | [facility] | | | | | | LABORATORY | | | | | | SERVICES, | | | | | | CORE | | + + + + + + | MCHC | 31.1 (L) | 33.4 - 35.5 | [facility] | | | | | g/dL | LABORATORY | | | | | | SERVICES, | | | | | | CORE | | + + + + + + | RDW | 22.8 (H) | 11.5 - 15.0 % | [facility] | | | | | | LABORATORY | | | | | | SERVICES, | | | | | | CORE | | + + + + + + | PLATELET | 520 (H) | 150 - 400 K/cu | [...] | + + + + + | [facility] | [address] | [place] [address] | | | SERVICES, CORE | [address] | | | + + + + + HEPARIN, EITHER STANDARD / LMW, BLOOD (03/14/2012 5:25 AM PST) + +-------+ + + + | Component | Value | Ref Range | Performed | Pathologist | | | | | At | Signature | + +-------+ + + + | HEPARIN, | 0.37 | U/mL | [facility] | | | [...] unreliable for: | | | Total bilirubin >6.6mg/dL | | | Triglycerides >360 mg/dL | | | or Moderate to Gross Hemolysis | | + + + + + + + + | Performing | Address | City/State/Zipcode | Phone Number | | Organization | | | | + + + + + | [facility] | [address] | [place] [address] | | | SERVICES, CORE | [address] | | | + + + + + VITAMIN B-12, SERUM (03/14/2012 5:25 AM PST) + + + + + + | Component | Value | Ref Range | Performed | Pathologist | | | | | At | Signature | + + + + + + | VITAMIN | 159 (L)Comment: B12 | 180 - 914 pg/mL | [facility] - | | | B12, SERUM | <200: Severe deficiency. | | [facility] | | | | If supplementation does | | [place] | | | | not correct consider | | | | | | further | | | | | | testing B12 <300: | | | | | | Deficiency likely. If | | | | | | supplementation does not | | | | | | correct, consider | | | | | | further | | | | | | testing B12 <400: | | | | | | Supplementation may be | | | | | | considered if | | | | | | [id number] >400: | | | | | | Deficiency unlikely B12 | | | | | | Deficiency can be | | | | | | confirmed with findings | | | | | | of increased MMA (>320 | | | | | | nmol/L) and increased | | | | | | homocysteine (>15 | | | | | | umol/L). Folate | | | | | | deficiency manifests | | | | | | with normal MMA but | | | | | | increased homocysteine. | | | | + + + + + + + + | Specimen | + + | Blood - Blood | + + + + + + + | Performing | Address | City/State/Zipcode | Phone Number | | Organization | | | | + + + + + | [facility] | [address] | [place] [address] | | | [place] | | | | + + + + + FERRITIN, SERUM (03/14/2012 5:25 AM PST) + +-------+ + + + | Component | Value | Ref Range | Performed | Pathologist | | | | | At | Signature | + +-------+ + + + | FERRITIN | 57 | 50 - 200 ug/L | [facility] | | | | | | LABORATORY | | | | | | SERVICES, | | | | | | CORE | | + +-------+ + + + + + | Specimen | + + | Blood - Blood | + + + + + | Narrative | Performed At | + + + | <20 ug/L: Consistent with iron deficiency | [facility] | | 21-50 ug/L: Possible Iron deficiency | LABORATORY | | 51-99 ug/L: Iron deficiency | SERVICES, CORE | | unlikely unless inflammation present or patient >65 years of age. | | | | | | 100-200 ug/L: Normal, not consistent with iron deficiency | | | >200 ug/L: If transferrin saturation >45%, consider | | | hemochromatosis. | | + + + + + + + + | Performing | Address | City/State/Zipcode | Phone Number | | Organization | | | | + + + + + | [facility] | [address] | [place] [address] | | | SERVICES, CORE | [address] | | | + + + + + IRON AND TIBC, SERUM (03/14/2012 5:25 AM PST) + +--------+ + + + | Component | Value | Ref Range | Performed | Pathologist | | | | | At | Signature | + +--------+ + + + | IRON | 17 (L) | 30 - 160 ug/dL | [facility] | | | | | | LABORATORY | | | | | | SERVICES, | | | | | | CORE | | + +--------+ + + + | IRON BIND | 285 | 240 - 450 ug/dL | [facility] | | | CAP | | | LABORATORY | | | | | | SERVICES, | | | | | | CORE | | + +--------+ + + + | % | 6 (L) | 20 - 50 % | [facility] | | | SATURATION | | | LABORATORY | | | TRANSFERRIN | | | SERVICES, | | | , | | | CORE | | + +--------+ + + + + + | Specimen | + + | Blood - Blood | + + + + + + + | Performing | Address | City/State/Zipcode | Phone Number | | Organization | | | | + + + + + | [facility] | [address] | [place] [address] | | | SERVICES, CORE | [address] | | | + + + + + BASIC METABOLIC SET (NA, K, CL, TCO2, BUN, CR, GLU, CA) (03/14/2012 5:25 AM PST) + +---------+ + + + [...] + + + | BUN, PLASMA | 8 | 6 - 20 mg/dL | [facility] | | | (LAB) | | | LABORATORY | | | | | | SERVICES, | | | | | | CORE | | + +---------+ + + + | CREATININE | 0.73 | 0.60 - 1.10 | [facility] | | | PLASMA | | mg/dL | LABORATORY | | | (LAB) | | | SERVICES, | | | | | | CORE | | + +---------+ + + + | SODIUM, | 139 | 136 - 145 | [facility] | | | PLASMA | | mmol/L | LABORATORY | | | (LAB) | | | SERVICES, | | | | | | CORE | | + +---------+ + + + | POTASSIUM, | 3.8 [...] + + + | TOTAL CO2, | 23 | 21 - 32 mmol/L | [facility] | | | PLASMA | | | LABORATORY | | | (LAB) | | | SERVICES, | | | | | | CORE | | + +---------+ + + + | CALCIUM, | 8.1 (L) | 8.6 - 10.2 | [facility] | | | PLASMA | | mg/dL | LABORATORY | | | (LAB) | | | SERVICES, | | | | | | CORE | | + +---------+ + + + | ANION GAP | 10 | 4 - 11 mmol/L | [facility] | | | | [...] | + + + + + | [facility] | [address] | [place] [address] | | | SERVICES, CORE | [address] | | | + + + + + C-REACT PRTN (FOR INFLAMMATION) (03/14/2012 5:25 AM PST) + + + + + + | Component | Value | Ref Range | Performed | Pathologist | | | | | At | Signature | + + + + + + | C-REACTIVE | 14.0 (H) | <=0.5 mg/dL | [facility] - | | | PROTEIN | | | [facility] | | | | | | [place] | | + + + + + + + + | Specimen | + + | Blood - Blood | + + + + + + + | Performing | Address | City/State/Zipcode | Phone Number | | Organization | | | | + + + + + | [facility] | [address] | [place] [address] | | | [place] | | | | + + + + + CAPILLARY BLOOD GLUCOSE (NO CHG), POC (03/13/2012 11:03 PM PST) + +---------+ + + + | Component | Value | Ref Range | Performed | Pathologist | | | | | At | Signature | + +---------+ + + + | BLOOD | 111 (H) | 60 - 99 mg/dL | [...] + + + + + | [facility] | [address] | [place], [place] | | | [facility] | [address] | [address] | | | TESTS | | | | + + + + + HEPARIN, EITHER STANDARD / LMW, BLOOD (03/13/2012 7:01 PM PST) + +-------+ + + + | Component | Value | Ref Range | Performed | Pathologist | | | | | At | Signature | + +-------+ + + + | HEPARIN, | 0.42 | U/mL | [facility] | | | [...] unreliable for: | | | Total bilirubin >6.6mg/dL | | | Triglycerides >360 mg/dL | | | or Moderate to Gross Hemolysis | | + + + + + + + + | Performing | Address | City/State/Zipcode | Phone Number | | Organization | | | | + + + + + | [facility] | [address] | [place] [address] | | | SERVICES, CORE | [address] | | | + + + + + LACTIC ACID (03/13/2012 7:00 PM PST) + +-------+ + + + | Component | Value | Ref Range | Performed | Pathologist | | | | | At | Signature | + +-------+ + + + | LACTATE | 1.4 | mmol/L | [facility] | | | [...] 1.6 mmol/L | LABORATORY | | | SERVICES, CORE | + + + + + + + + | Performing | Address | City/State/Zipcode | Phone Number | | Organization | | | | + + + + + | [facility] | [address] | [place] [address] | | | SERVICES, CORE | [address] | | | + + + + + CAPILLARY BLOOD GLUCOSE (NO CHG), POC (03/13/2012 6:14 PM PST) + +-------+ + + + | Component | Value | Ref Range | Performed | Pathologist | | | | | At | Signature | + +-------+ + + + | BLOOD | 98 | 60 - 99 mg/dL | [facility] - | | | GLUCOSE, | | [...] [facility] | [address] | [place], [place] | | | [facility] | [address] | [address] | | | TESTS | | | | + + + + + HEPARIN, EITHER STANDARD / LMW, BLOOD (03/13/2012 1:42 PM PST) + +-------+ + + + | Component | Value | Ref Range | Performed | Pathologist | | | | | At | Signature | + +-------+ + + + | HEPARIN, | 0.44 | U/mL | [facility] | | | [...] unreliable for: | | | Total bilirubin >6.6mg/dL | | | Triglycerides >360 mg/dL | | | or Moderate to Gross Hemolysis | | + + + + + + + + | Performing | Address | City/State/Zipcode | Phone Number | | Organization | | | | + + + + + | [facility] | [address] | [place] [address] | | | SERVICES, CORE | [address] | | | + + + + + VASC LAB ABDOMINAL DUPLEX COMP ARTERY VEIN (03/13/2012 1:41 PM PST) + + + + + + | Component | Value | Ref Range | Performed | Pathologist | | | | | At | Signature | + + + + + + | VASC LAB | ABDOMINAL AORTIC AND | | | | | ABDOMINAL | ILIAC ARTERIAL DUPLEX | | | | | DUPLEX | SCAN: 03/13/2012 | | | | | COMPLETE | Dictated 03/13/2012 | | | | | ARTERY VEIN | CLINICAL INDICATION: | | | | | | Abdominal aortic | | | | | | thrombus. FINDINGS: | | | | | | The abdominal aorta, | | | | | | common iliac, internal | | | | | | iliac, andexternal iliac | | | | | | arteries were examined | | | | | | with the duplex | | | | | | scanner.Technically, | | | | | | this was a very | | | | | | difficult exam with | | | | | | limitedvisualization of | | | | | | the abdominal aorta due | | | | | | to overlying bowel gas. | | | | | | Thesupraceliac aorta | | | | | | and the infrarenal aorta | | | | | | were visualized | | | | | | withnormal antegrade | | | | | | flows and velocities. | | | | | | However, the distal | | | | | | abdominalaorta could not | | | | | | be visualized due to | | | | | | overlying gas. On the | | | | | | rightside, the common | | | | | | iliac, internal iliac, | | | | | | and external iliac | | | | | | arteriesappear patent | | | | | | with normal antegrade | | | | | | flows and velocities. | | | | | | However,there may be | | | | | | non-occlusive arterial | | | | | | thrombus involving the | | | | | | rightcommon iliac | | | | | | artery. On the left | | | | | | side, the common iliac, | | | | | | internal iliac, and | | | | | | proximal leftexternal | | | | | | iliac arteries were | | | | | | obscured by overlying | | | | | | bowel gas. | | | | | | Pexulx-es-kqecyj left | | | | | | external iliac arteries | | | | | | appear patent with | | | | | | normalantegrade flows | | | | | | and velocities. | | | | | | IMPRESSION: Abnormal | | | | | | abdominal aortic and | | | | | | iliac arterial duplex | | | | | | scan | | | | | | suggestingnon-occlusive | | | | | | thrombus involving the | | | | | | right common iliac | | | | | | artery.Significant | | | | | | portions of the | | | | | | abdominal aorta and the | | | | | | left iliacarterial | | | | | | system were obscured by | | | | | | overlying bowel gas. | | | | | | END IMPRESSION | | | | | | Attending Radiologists: | | | | | | ,Author: VENKATA HOOK, | | | | | | M.D. I have personally | | | | | | viewed this | | | | | | procedure/exam, reviewed | | | | | | this report,and made | | | | | | changes to it where | | | | | | appropriate. | | | | | | Final/Electronically | | | | | | signed / Venkata Hook | | | | | | Preliminary / Davina | | | | | | [place] | | | | + + + + + + + + | Specimen | + + | | + + + +---------+ + + | Performing | Address | City/State/Zipcode | Phone Number | | Organization | | | | + +---------+ + + | [place] [facility] | | | | + +---------+ + + [facility] DUPLEX LOWER EXTREMITY BILATERAL COMPLETE (03/13/2012 1:41 PM PST) + + + + + + | Component | Value | Ref Range | Performed | Pathologist | | | | | At | Signature | + + + + + + | [facility] | BILATERAL LOWER | | | | | ARTERY | EXTREMITY ARTERIAL | | | | | DUPLEX | DUPLEX SCAN: | | | | | LOWER | 03/13/2012 Dictated | | | | | EXTREMITY | 03/13/2012 CLINICAL | | | | | BILATERAL | INDICATION: Evaluate | | | | | COMPLETE | for right lower | | | | | | extremity | | | | | | arterialthromboembolism. | | | | | | FINDINGS: The upper | | | | | | extremity blood pressure | | | | | | measures 123 and | | | | | | 118mmHg on the right and | | | | | | left respectively. | | | | | | Ankle brachial | | | | | | indicesmeasure 0.52 on | | | | | | the right and 1.1 on the | | | | | | left. The common | | | | | | femoral,deep femoral, | | | | | | superficial femoral, | | | | | | popliteal and tibial | | | | | | arteries wereall | | | | | | examined with a duplex | | | | | | scanner. On the right | | | | | | side, the commonfemoral | | | | | | and deep femoral | | | | | | arteries appear patent | | | | | | with normal | | | | | | antegradeflows and | | | | | | velocities. The right | | | | | | superficial femoral | | | | | | artery is alsopatent | | | | | | with normal velocities | | | | | | and triphasic waveforms | | | | | | throughout.The right | | | | | | popliteal artery is | | | | | | patent proximally, but | | | | | | there isocclusive | | | | | | arterial thrombosis | | | | | | involving the mid and | | | | | | distal rightpopliteal | | | | | | artery, and there is | | | | | | reconstitution of the | | | | | | right peronealartery. | | | | | | The origin of the | | | | | | right posterior tibial | | | | | | and anterior | | | | | | tibialarteries appear | | | | | | occluded with | | | | | | reconstitution of the | | | | | | distal rightanterior | | | | | | tibial and distal right | | | | | | posterior tibial | | | | | | arteries. On the left | | | | | | side, the common | | | | | | femoral, deep femoral, | | | | | | superficialfemoral and | | | | | | popliteal arteries all | | | | | | appear patent with | | | | | | normalantegrade flows | | | | | | and velocities. The | | | | | | left anterior tibial | | | | | | andposterior tibial | | | | | | arteries appear patent | | | | | | down to the ankle. The | | | | | | leftperoneal artery is | | | | | | patent for most of its | | | | | | length, but it appears | | | | | | toocclude above the | | | | | | ankle as well. | | | | | | IMPRESSION: Abnormal | | | | | | bilateral lower | | | | | | extremity arterial | | | | | | duplex scan with | | | | | | anklebrachial indices | | | | | | consistent with severe | | | | | | occlusive disease on | | | | | | theright and normal | | | | | | ankle brachial indices | | | | | | on the left. There | | | | | | isarterial thrombosis | | | | | | involving the distal | | | | | | right popliteal, mid | | | | | | rightanterior tibial, | | | | | | distal right anterior | | | | | | tibial and proximal | | | | | | rightposterior tibial | | | | | | arteries. The left | | | | | | lower extremity has | | | | | | patentfemoral and | | | | | | popliteal arteries with | | | | | | occlusion of the distal | | | | | | leftperoneal artery down | | | | | | by the ankle. There | | | | | | is two-vessel runoff | | | | | | viathe left lower | | | | | | extremity anterior | | | | | | tibial and posterior | | | | | | tibialarteries. END | | | | | | IMPRESSION: Attending | | | | | | Radiologists: ,Author: | | | | | | VENKATA HOOK M.D. I | | | | | | have personally viewed | | | | | | this procedure/exam, | | | | | | reviewed this report,and | | | | | | made changes to it | | | | | | where appropriate. | | | | | | Final/Electronically | | | | | | signed / Venkata Hook | | | | | | Preliminary / Arianna | | | | | | Brian | | | | + + + + + + + + | Specimen | + + | | + + + +---------+ + + | Performing | Address | City/State/Zipcode | Phone Number | | Organization | | | | + +---------+ + + | [facility] | | | | | RADIOLOGY | | | | + +---------+ + + CAPILLARY BLOOD GLUCOSE (NO CHG), POC (03/13/2012 12:11 PM PST) + +---------+ + + + [...] + | [facility] | [address] | [place], [place] | | | [facility] | [facility] | [address] | | | TESTS | | | | + + + + + LDH ISOENZYMES, SERUM (03/13/2012 12:03 PM PST) + + + + + + | Component | Value | Ref Range | Performed | Pathologist | | | | | At | Signature | + + + + + + | LD-1 | 19 | 14 - 27 % | [facility] | | | | | | REG UNIV | | | | | | PTH - [facility] | | + + + + + + | LD-2 | 29 | 29 - 42 % | [facility] | | | | | | [facility] | | | | | | PTH - [facility] | | + + + + + + | LD-3 | 23 | 18 - 30 % | [facility] | | | | | | [facility] | | | | | | PTH - [facility] | | + + + + + + | LD-4 | 12 | 8 - 15 % | [facility] | | | | | | REG UN[facility] | | | | | | PTH - [facility] | | + + + + + + | LD-5 | 17Comment: Performed by | 6 - 23 % | [facility] | | | | [facility],[address] | | REG UNIV | | | | Jarett Card, [facility] | | [facility] - [facility] | | | | [phone] | | | | | | [phone]. | | | | | | Kaitlin parker, | | | | | | Dilcia SAEED. Director | | | | + + + + + + | LDH, SERUM | 211 | 105 - 230 U/L | [facility] | | | | | | REG UNIV | | | | | | PTH - [facility] | | + + + + + + + + | Specimen | + + | Blood - Blood | + + + + + + + | Performing | Address | City/State/Zipcode | Phone Number | | Organization | | | | + + + + + | [facility] | [address] | [place], [place] | | | UNIV PTH - [facility] | | [id number] | | + + + + + HEPARIN, EITHER STANDARD / LMW, BLOOD (03/13/2012 11:17 AM PST) + +-------+ + + + [...] unreliable for: | | | Total bilirubin >6.6mg/dL | | | Triglycerides >360 mg/dL | | | or Moderate to Gross Hemolysis | | + + + + + + + + | Performing | Address | City/State/Zipcode | Phone Number | | Organization | | | | + + + + + | [facility] | [address] | [place] [address] | | | SERVICES, CORE | [address] | | | + + + + + APTT (ACT. PART. THROMBO TIME) (03/13/2012 11:17 AM PST) + + + + + + | Component | Value | Ref Range | Performed | Pathologist | | | | | At | Signature | + + + + + + | APTT | 89.2 (H) | 26.0 - 36.0 | [facility] | | | | | sec. | LABORATORY | | | | | [...] 0.7 U/mL | LABORATORY | | | [facility] | + + + + + + + + | Performing | Address | City/State/Zipcode | Phone Number | | Organization | | | | + + + + + | [facility] | [address] | [place] [address] | | | JANELL [address] | [address] | | | + + + + + CAPILLARY BLOOD GLUCOSE (NO CHG), POC (03/13/2012 8:02 AM PST) + +---------+ + + + | Component | Value | Ref Range | Performed | Pathologist | | | | | At | Signature | + +---------+ + + + | BLOOD | 115 (H) | 60 - 99 mg/dL | [...] - [facility] | [address] | [place], [place] | | | [facility] | [address] | [address] | | | TESTS | | | | + + + + + HEPARIN, EITHER STANDARD / LMW, BLOOD (03/13/2012 8:02 AM PST) + +-------+ + + + | Component | Value | Ref Range | Performed | Pathologist | | | | | At | Signature | + +-------+ + + + | HEPARIN, | 0.81 | U/ml | [facility] | | | STD LMW [...] unreliable for: | | | Total bilirubin >6.6mg/dL | | | Triglycerides >360 mg/dL | | | or Moderate to Gross Hemolysis | | + + + + + + + + | Performing | Address | City/State/Zipcode | Phone Number | | Organization | | | | + + + + + | [facility] | [address] | [place] [address] | | | SERVICES, CORE | [address] | | | + + + + + CK, PLASMA (03/13/2012 6:50 AM PST) + +-------+ + + + | Component | Value | Ref Range | Performed | Pathologist | | | | | At | Signature | + +-------+ + + + | CK | 93 | 38 - 234 U/L | [facility] | | | | [...] | + + + + + | [facility] | [address] | [place] [address] | | | SERVICES, CORE | [address] | | | + + + + + CAPILLARY BLOOD GLUCOSE (NO CHG), POC (03/13/2012 5:41 AM PST) + +---------+ + + + | Component | Value | Ref Range | Performed | Pathologist | | | | | At | Signature | + +---------+ + + + | BLOOD | 141 (H) | 60 - 99 mg/dL | [...] [facility] | [address] | [place], [place] | | | [facility] | [address] | [address] | | | TESTS | | | | + + + + + APTT (ACT. PART. THROMBO TIME) (03/13/2012 4:19 AM PST) + + + + + + | Component | Value | Ref Range | Performed | Pathologist | | | | | At | Signature | + + + + + + | APTT | 45.4 (H) | 26.0 - 36.0 | [facility] [...] 0.7 U/mL | LABORATORY | | | [address]ANE[address] | + + + + + + + + | Performing | Address | City/State/Zipcode | Phone Number | | Organization | | | | + + + + + | [facility] | [address] | [place] [address] | | | [address]ANE[address] | [address] | | | + + + + + CBC (03/13/2012 3:42 AM PST) + + + + + + | Component | Value | Ref Range | Performed | Pathologist | | | | | At | Signature | + + + + + + | WHITE CELL | 42.5 (HH) | 4.4 - 11.0 K/cu | [facility] | | | COUNT [...] + + + + | MCV | 77.9 (L) | 80.0 - 96.0 fL | [facility] | | | | | | LABORATORY | | | | | | SERVICES, | | | | | | CORE | | + + + + + + | MCHC | 30.8 (L) | 33.4 - 35.5 | [facility] | | | | | g/dL | LABORATORY | | | | | | SERVICES, | | | | | | CORE | | + + + + + + | RDW | 23.0 (H) | 11.5 - 15.0 % | [facility] | | | | | | LABORATORY | | | | | | SERVICES, | | | | | | CORE | | + + + + + + | PLATELET | 606 (H) | 150 - 400 K/cu | [...] [facility] | [address] | [place] [address] | | | SERVICES, CORE | [address] | | | + + + + + APTT (ACT. PART. THROMBO TIME) (03/13/2012 3:42 AM PST) + + + + + + | Component | Value | Ref Range | Performed | Pathologist | | | | | At | Signature | + + + + + + | APTT | 53.7 (H) | 26.0 - 36.0 | [facility] | | | | | sec. | LABORATORY | | | | | [...] 0.7 U/mL | LABORATORY | | | [facility]ANE[facility] | + + + + + + + + | Performing | Address | City/State/Zipcode | Phone Number | | Organization | | | | + + + + + | [facility] | [address] | [place] [address] | | | JANELL SHARP | [address] | | | + + + + + PHOSPHORUS, PLASMA (03/13/2012 3:42 AM PST) + +---------+ + + + | Component | Value | Ref Range | Performed | Pathologist | | | | | At | Signature | + +---------+ + + + | PHOSPHORUS, | 1.1 (L) | 2.4 - 4.7 mg/dL | [...] | + + + + + | [facility] | [address] | [place] [address] | | | SERVICES, CORE | [address] | | | + + + + + MAGNESIUM, PLASMA (03/13/2012 3:42 AM PST) + +---------+ + + + | Component | Value | Ref Range | Performed | Pathologist | | | | | At | Signature | + +---------+ + + + | MAGNESIUM,P | 2.8 (H) | 1.8 - 2.5 mg/dL | [facility] | | | [facility] | | | [...] | + + + + + | [facility] | [address] | [place] [address] | | | SERVICES, CORE | [address] | | | + + + + + BASIC METABOLIC SET (NA, K, CL, TCO2, BUN, CR, GLU, CA) (03/13/2012 3:42 AM PST) + +---------+ + + + | Component | Value | Ref Range | Performed | Pathologist | | | | | At | Signature | + +---------+ + + + | GLUCOSE, | 115 (H) | 60 - 99 mg/dL | [facility] | | | PLASMA | | | LABORATORY | | | (LAB) | | | SERVICES, | | | | | | CORE | | + +---------+ + + + | BUN, PLASMA | 14 | 6 - 20 mg/dL | [facility] | | | (LAB) | | | LABORATORY | | | | | | SERVICES, | | | | | | CORE | | + +---------+ + + + | CREATININE | 0.66 | 0.60 - 1.10 | [facility] | | | PLASMA | | mg/dL | LABORATORY | | | (LAB) | | | SERVICES, | | | | | | CORE | | + +---------+ + + + | SODIUM, | 143 | 136 - 145 | [facility] | [...] +---------+ + + + | CHLORIDE, | 109 (H) | 97 - 108 mmol/L | [facility] | | | PLASMA | | | LABORATORY | | | (LAB) | | | SERVICES, | | | | | | CORE | | + +---------+ + + + | TOTAL CO2, | 19 (L) | 21 - 32 mmol/L | [facility] | | | PLASMA | | | LABORATORY | | | (LAB) | | | SERVICES, | | | | | | CORE | | + +---------+ + + + | CALCIUM, | 8.0 (L) | 8.6 - 10.2 | [facility] | | | PLASMA | | mg/dL | LABORATORY | | | (LAB) | | | SERVICES, | | | | | | CORE | | + +---------+ + + + | ANION GAP | 15 (H) | 4 - 11 mmol/L | [facility] | | | | [...] [facility] | [address] | [place] [address] | | | SERVICES, CORE | [address] | | | + + + + + CULTURE, URINE BACTI (03/13/2012 1:03 AM PST) + + + + + + | Component | Value | Ref Range | Performed | Pathologist | | | | | At | Signature | + + + + + + | CULTURE | C UrineSource: U | | [facility] - | | | RESULT | Midstream | | [facility] - | | | | Final | | [place] | | | | CULTURE RESULT:No growth | | | | | | (<1000 col/ml) after 24 | | | | | | hours | | | | + + + + + + + + | Specimen | + + | Urine - Urine | + + + + + + + | Performing | Address | City/State/Zipcode | Phone Number | | Organization | | | | + + + + + | [facility] | [address] | [place] [address] | | | [place] | | | | + + + + + CULTURE, STOOL BACTI (03/13/2012 12:01 AM PST) + + + + + + | Component | Value | Ref Range | Performed | Pathologist | | | | | At | Signature | + + + + + + | CULTURE | C StoolSource: Stool | | [facility] - | | | RESULT | | | [facility] - | | | | Final CULTURE | | [place] | | | | RESULT:Salmonella, | | | | | | Shigella, Campylobacter | | | | | | and E.coli O157:H7 not | | | | | | isolated Unable to rule | | | | | | out Shiga toxins 1 and 2 | | | | + + + + + + + + | Specimen | + + | Stool - Rectum | + + + + + | Narrative | Performed At | + + + | Stool cultures are generally NOT recommended for patients | [facility] - | | hospitalized greater than three days. | [facility] - | | | [place] | + + + + + + + + | Performing | Address | City/State/Zipcode | Phone Number | | Organization | | | | + + + + + | [facility] | [address] | [place] [address] | | | [facility] | | | | + + + + + C. DIFFICILE TOXIN (03/13/2012 12:01 AM PST) + + + + + [...] | + + + + + | [facility] | [address] | [place] [address] | | | SERVICES, CORE | [address] | | | + + + + + CAPILLARY BLOOD GLUCOSE (NO CHG), POC (03/12/2012 11:06 PM PST) + +---------+ + + + | Component | Value | Ref Range | Performed | Pathologist | | | | | At | Signature | + +---------+ + + + | BLOOD | 166 (H) | 60 - 99 mg/dL | [...] [facility] | [address] | [place], [place] | | | [facility] | [address] | [address] | | | TESTS | | | | + + + + + 12 LEAD ECG (03/12/2012 10:30 PM PST) + + + + + + | Component | Value | Ref Range | Performed | Pathologist | | | | | At | Signature | + + + + + + | VENTRICULAR | 111 | BPM | [facility] | | | RATE | | | OF | | | | | | CARDIOLOGY | | + + + + + + | ATRIAL RATE | 111 | BPM | [facility] | | | | | | OF | | | | | | CARDIOLOGY | | + + + + + + | P-R | 176 | ms | [facility] | | | INTERVAL | | | OF | | | | | | CARDIOLOGY | | + + + + + + | QRS | 72 | ms | [facility] | | | DURATION | | | OF | | | | | | CARDIOLOGY | | + + + + + + | QT | 428 | ms | [facility] | | | | | | OF | | | | | | CARDIOLOGY | | + + + + + + | QTC | 582 | ms | [facility] | | | | | | OF | | | | | | CARDIOLOGY | | + + + + + + | P AXIS | 26 | degrees | [facility] | | | | | | OF | | | | | | CARDIOLOGY | | + + + + + + | R AXIS | 7 | degrees | [facility] | | | | | | OF | | | | | | CARDIOLOGY | | + + + + + + | T AXIS | -18 | degrees | [facility] | | | | | | OF | | | | | | CARDIOLOGY | | + + + + + + | EKG | Sinus | | [facility] | | | DIAGNOSIS | tachycardiaNonspecific T | | OF | | | | wave | | CARDIOLOGY | | | | abnormalityAbnormal | | | | | | ECGConfirmed by CINDA | | | | | | LINDSEY ([id number]) on 03/13/2012 | | | | | | 10:59:34 AM | | | | + + + + + + + + | Specimen | + + | | + + + + + | Narrative | Performed At | + + + | Please click | [facility] | | on view image for the detailed interpretation from [employer] results. | CARDIOLOGY | + + + + + + + + | Performing | Address | City/State/Zipcode | Phone Number | | Organization | | | | + + + + + | [facility] | [address] | [place], [place] | | | CARDIOLOGY | [address] | [address] | | + + + + + X-RAY PORTABLE CHEST 1 VIEW (03/12/2012 10:29 PM PST) + + + + + + | Component | Value | Ref Range | Performed | Pathologist | | | | | At | Signature | + + + + + + | X-RAY | EXAM: AP CHEST. | | | | | PORTABLE | HISTORY:Right IJ | | | | | CHEST 1 | placement. COMPARISON: | | | | | VIEW | None FINDINGS: Right | | | | | | internal jugular venous | | | | | | catheter is in place | | | | | | withtip in the lower | | | | | | superior vena cava. | | | | | | There is no | | | | | | pneumothorax.Right | | | | | | hemidiaphragm is | | | | | | elevated, likely | | | | | | eventration. There | | | | | | isminimal right basilar | | | | | | linear subsegmental | | | | | | atelectasis. | | | | | | Lungsotherwise clear. | | | | | | There is no pulmonary | | | | | | edema. IMPRESSION: | | | | | | 1.Right jugular venous | | | | | | catheter tip in the | | | | | | lower superior vena | | | | | | cava.No pneumothorax. 2. | | | | | | Minimal right basilar | | | | | | subsegmental | | | | | | atelectasis, otherwise | | | | | | clearlungs. Attending | | | | | | Radiologists: Nathan | | | | | | Fortino RogersAuthor: | | | | | | Nathan Rogers M.D. I | | | | | | have personally viewed | | | | | | this procedure/exam, | | | | | | reviewed this report,and | | | | | | made changes to it | | | | | | where appropriate. | | | | | | Final/Electronically | | | | | | signed / Nathan | | | | | | Ken 03/13/2012 10:14 | | | | | | AM | | | | + + + + + + + + | Specimen | + + | | + + + +---------+ + + | Performing | Address | City/State/Zipcode | Phone Number | | Organization | | | | + +---------+ + + | [facility] | | | | | RADIOLOGY | | | | + +---------+ + + CULTURE, BLOOD BACTI & YEAST OH (03/12/2012 9:57 PM PST) + + + + + + | Component | Value | Ref Range | Performed | Pathologist | | | | | At | Signature | + + + + + + | BLOOD | Final Report:No Bacteria | Final Report:No | [facility] | | | CULTURE | or Yeast isolated at 5 | Bacteria or | LABORATORY | | | [facility] | days.Comment: This is a | Yeast isolated | SERVICES, | | | | corrected result. | at 5 days., | CORE | | | | Previous result was No | Sent for | | | | | growth to date. on | Subculture, No | | | | | 03/14/2012t 0013. | growth to date. | | | + + + + + + + + | Specimen | + + | Blood - Blood | + + + + + + + | Performing | Address | City/State/Zipcode | Phone Number | | Organization | | | | + + + + + | [facility] | [address] | [place] [address] | | | SERVICES, CORE | [address] | | | + + + + + CULTURE, BLOOD BACTI & YEAST [facility] (03/12/2012 9:50 PM PST) + + + + + + | Component | Value | Ref Range | Performed | Pathologist | | | | | At | Signature | + + + + + + | BLOOD | Final Report:No Bacteria | Final Report:No | [facility] | | | CULTURE | or Yeast isolated at 5 | Bacteria or | LABORATORY | | | [facility] | days.Comment: This is a | Yeast isolated | SERVICES, | | | | corrected result. | at 5 days., | CORE | | | | Previous result was No | Sent for | | | | | growth to date. on | Subculture, No | | | | | 03/14/2012 0013. | growth to date. | | | + + + + + + + + | Specimen | + + | Blood - Blood | + + + + + + + | Performing | Address | City/State/Zipcode | Phone Number | | Organization | | | | + + + + + | [facility] | [address] | [place] [address] | | | SERVICES, CORE | [address] | | | + + + + + COAGULOPATHY PANEL (INR,APTT,FIBRINOGEN) (03/12/2012 8:06 PM PST) + +---------+ + + + | Component | Value | Ref Range | Performed | Pathologist | | | | | At | Signature | + +---------+ + + + | INR | 1.17 | 0.90 - 1.20 INR | [facility] | | | | | | LABORATORY | | | | | | SERVICES, | | | | | | CORE | | + +---------+ + + + | APTT | 29.7 | 26.0 - 36.0 | [facility] | | | | | seconds | LABORATORY | | | | | | SERVICES, | | | | | | CORE | | + +---------+ + + + | FIBRINOGEN | 716 (H) | 200 - 450 mg/dL | [facility] [...] valves (2.5 - 3.5) INR APTT | SERVICES, CORE | | Therapeutic Range: (75 - 120) sec | | | Heparin levels of 0.35 - 0.7 U/mL | | + + + + + + + + | Performing | Address | City/State/Zipcode | Phone Number | | Organization | | | | + + + + + | [facility] | [address] | [place] [address] | | | SERVICES, CORE | [address] | | | + + + + + COMPLETE METABOLIC SET (NA,K,CL,CO2,BUN,CREAT,GLUC,CA,AST,ALT,BILI TOTAL,ALK PHOS,ALB,PROT TOTAL) (03/12/2012 8:06 PM PST) + +---------+ + + + | Component | Value | Ref Range | Performed | Pathologist | | | | | At | Signature | + +---------+ + + + | GLUCOSE, | 143 (H) | 60 - 99 mg/dL | [facility] | | | PLASMA | | | LABORATORY | | | (LAB) | | | SERVICES, | | | | | | CORE | | + +---------+ + + + | BUN, PLASMA | 17 | 6 - 20 mg/dL | [facility] | | | (LAB) | | | LABORATORY | | | | | | SERVICES, | | | | | | CORE | | + +---------+ + + + | CREATININE | 0.77 | 0.60 - 1.10 | [facility] | [...] +---------+ + + + | CHLORIDE, | 109 (H) | 97 - 108 mmol/L | [facility] | | | PLASMA | | | LABORATORY | | | (LAB) | | | SERVICES, | | | | | | CORE | | + +---------+ + + + | TOTAL CO2, | 20 (L) | 21 - 32 mmol/L | [facility] | | | PLASMA | | | LABORATORY | | | (LAB) | | | SERVICES, | | | | | | CORE | | + +---------+ + + + | CALCIUM, | 7.3 (L) | 8.6 - 10.2 | [facility] | | | PLASMA | | mg/dL | LABORATORY | | | (LAB) | | | SERVICES, | | | | | | CORE | | + +---------+ + + + | BILIRUBIN | 0.4 | 0.3 - 1.2 mg/dL | [facility] | | | TOTAL | | | LABORATORY | | | | | | SERVICES, | | | | | | CORE | | + +---------+ + + + | TOTAL | 6.0 (L) | 6.1 - 7.9 g/dL | [facility] | | | PROTEIN, | | | LABORATORY | | | PLASMA | | | SERVICES, | | | (LAB) | | | CORE | | + +---------+ + + + | ALBUMIN, | 1.9 (L) | 3.5 - 4.7 g/dL | [facility] | | | PLASMA | | | LABORATORY | | | (LAB) | | | SERVICES, | | | | | | CORE | | + +---------+ + + + | ALK PHOS | 93 | 42 - 98 U/L | [facility] | | | | | | LABORATORY | | | | | | SERVICES, | | | | | | CORE | | + +---------+ + + + | AST(SGOT) | 14 (L) | 15 - 41 U/L | [facility] | | | | | | LABORATORY | | | | | | SERVICES, | | | | | | CORE | | + +---------+ + + + | ALT (SGPT) | 8 (L) | 12 - 60 U/L | [facility] | | | | | | LABORATORY | | | | | | SERVICES, | | | | | | CORE | | + +---------+ + + + | ANION | 17 (H) | 4 - 11 mmol/L | [...] + + + | ANION GAP | 12 (H) | 4 - 11 mmol/L | [facility] | | | | [...] | + + + + + | [facility] | [address] | [place] [address] | | | SERVICES, JANELL | [address] | | | + + + + + CAPILLARY BLOOD GLUCOSE (NO CHG), POC (03/12/2012 7:19 PM PST) + +---------+ + + + | Component | Value | Ref Range | Performed | Pathologist | | | | | At | Signature | + +---------+ + + + | BLOOD | 176 (H) | 60 - 99 mg/dL | [facility] - | | | GLUCOSE, | | [...] [facility] | [address] | [place], [place] | | | [facility] | [address] | [address] | | | TESTS | | | | + + + + + MANUAL DIFFERENTIAL (03/12/2012 7:18 PM PST) + + + + + + | Component | Value | Ref Range | Performed | Pathologist | | | | | At | Signature | + + + + + + | NEUTROPHIL% | 97 (H) | 50 - 70 % | [facility] | | | | | | LABORATORY | | | | | | SERVICES, | | | | | | CORE | | + + + + + + | LYMPHOCYTE% | 0 (L) | 18 - 42 % | [facility] | | | | | | LABORATORY | | | | | | SERVICES, | | | | | | CORE | | + + + + + + | MONOCYTE % | 3 | 2 - 8 % | [facility] | | | | | | LABORATORY | | | | | | SERVICES, | | | | | | CORE | | + + + + + + | EOSINOPHIL | 0 (L) | 1 - 3 % | [facility] | | | % | | | LABORATORY | | | | | | SERVICES, | | | | | | CORE | | + + + + + + | BASOPHIL % | 0 | 0 - 2 % | [facility] | | | | | | LABORATORY | | | | | | SERVICES, | | | | | | CORE | | + + + + + + | BANDS % | 0 | 0 - 10 % | [facility] | | | | | | LABORATORY | | | | | | SERVICES, | | | | | | CORE | | + + + + + + | METAMYELO% | 0 | <=0 % | [facility] | | | | | | LABORATORY | | | | | | SERVICES, | | | | | | CORE | | + + + + + + | MYELOCYTES% | 0 | <=0 % | [facility] | | | | | | LABORATORY | | | | | | SERVICES, | | | | | | CORE | | + + + + + + | PROMYELO% | 0 | <=0 % | [facility] | | | | | | LABORATORY | | | | | | SERVICES, | | | | | | CORE | | + + + + + + | ATYPICAL | 0 | <=0 | [facility] | | | CELL% | | | LABORATORY | | | | | | SERVICES, | | | | | | CORE | | + + + + + + | NEUTROPHIL | 38.9 (H) | 1.8 - 7.7 K/cu | [facility] | | | # | | mm | LABORATORY | | | | | | SERVICES, | | | | | | CORE | | + + + + + + | LYMPHOCYTE# | 0.0 (L) | 1.0 - 4.8 K/cu | [facility] | | | | | mm | LABORATORY | | | | | | SERVICES, | | | | | | CORE | | + + + + + + | MONOCYTE # | 1.2 (H) | 0.0 - 0.8 K/cu | [facility] | | | | | mm | LABORATORY | | | | | | SERVICES, | | | | | | CORE | | + + + + + + | EOSINOPHIL | 0.0 | 0.0 - 0.5 K/cu | [facility] | | | # | | mm | LABORATORY | | | | | | SERVICES, | | | | | | CORE | | + + + + + + | BASOPHIL # | 0.0 | 0.0 - 0.2 K/cu | [facility] | | | | | mm | LABORATORY | | | | | | SERVICES, | | | | | | CORE | | + + + + + + | BANDS # | 0.0 | 0.0 - 1.1 K/cu | [facility] | | | | | mm | LABORATORY | | | | | | SERVICES, | | | | | | CORE | | + + + + + + | METAMYELO# | 0.0 | K/cu mm | [facility] | | | | | | LABORATORY | | | | | | SERVICES, | | | | | | CORE | | + + + + + + | MYELOCYTES# | 0.0 | K/cu mm | [facility] | | | | | | LABORATORY | | | | | | SERVICES, | | | | | | CORE | | + + + + + + | PROMYELO # | 0.0 | K/cu mm | [facility] | | | | | | LABORATORY | | | | | | SERVICES, | | | | | | CORE | | + + + + + + | ATYPICAL | 0.0 | K/cu mm | [facility] | | | CELLS # | | | LABORATORY | | | | | | SERVICES, | | | | | | CORE | | + + + + + + | ANISOCYTOSI | 3+ (50-100cells/HPF) | (none) | [facility] | | | S | | | LABORATORY | | | | | | SERVICES, | | | | | | CORE | | + + + + + + | HYPOCHROMIA | 1+ (10-25cells/HPF) | (none) | [facility] | | | | | [...] [facility] | [id number] | [place] [address] | | | SERVICES, CORE | [address] | | | + + + + + CBC AND AUTO DIFF (03/12/2012 7:18 PM PST) + + + + + + | Component | Value | Ref Range | Performed | Pathologist | | | | | At | Signature | + + + + + + | WHITE CELL | 40.1 (HH) | 4.4 - 11.0 K/cu | [facility] | | | COUNT | | mm | LABORATORY | | | | | | SERVICES, | | | | | | CORE | | + + + + + + | RED CELL | 3.40 (L) | 4.00 - 5.20 | [facility] | | | COUNT | | M/cu mm | LABORATORY | | | | | | SERVICES, | | | | | | CORE | | + + + + + + | HEMOGLOBIN | 8.2 (L) | 12.0 - 16.0 | [facility] | | | | | g/dL | LABORATORY | | | | | | SERVICES, | | | | | | CORE | | + + + + + + | HEMATOCRIT | 26.0 (L) | 36.0 - 46.0 % | [facility] | | | | | | LABORATORY | | | | | | SERVICES, | | | | | | CORE | | + + + + + + | MCV | 76.6 (L) | 80.0 - 96.0 fL | [facility] | | | | | | LABORATORY | | | | | | SERVICES, | | | | | | CORE | | + + + + + + | MCHC | 31.4 (L) | 33.4 - 35.5 | [facility] | | | | | g/dL | LABORATORY | | | | | | SERVICES, | | | | | | CORE | | + + + + + + | RDW | 23.0 (H) | 11.5 - 15.0 % | [facility] | | | | | | LABORATORY | | | | | | SERVICES, | | | | | | CORE | | + + + + + + | PLATELET | 562 (H) | 150 - 400 K/cu | [...] [facility] | [id number] [address] | [place] [address] | | | SERVICES, CORE | [address] | | | + + + + + ANTIBODY SCREEN (03/12/2012 7:18 PM PST) + + + + + [...] | + + + + + | [facility] | [address] | [place] [address] | | | SERVICES, | [address] | | | | TRANSFUSION MEDICINE | | | | + + + + + ABO & RH TYPE (03/12/2012 7:18 PM PST) + + + + + [...] [facility] | [address] | [place] [address] | | | SERVICES, | [address] | | | | TRANSFUSION MEDICINE | | | | + + + + + APTT (ACT. PART. THROMBO TIME) (03/12/2012 7:18 PM PST) + +-------+ + + + | Component | Value | Ref Range | Performed | Pathologist | | | | | At | Signature | + +-------+ + + + | APTT | 30.3 | 26.0 - 36.0 | [facility] | | | | | sec. | LABORATORY | | | | | [...] 0.7 U/mL | LABORATORY | | | [facility] | + + + + + + + + | Performing | Address | City/State/Zipcode | Phone Number | | Organization | | | | + + + + + | [facility] | [address] | [place] [address] | | | SERVICES, JANELL | [address] | | | + + + + + MAGNESIUM, PLASMA (03/12/2012 7:18 PM PST) + +---------+ + + + | Component | Value | Ref Range | Performed | Pathologist | | | | | At | Signature | + +---------+ + + + | MAGNESIUM,P | 1.1 (L) | 1.8 - 2.5 mg/dL | [...] [facility] | [address] | [place] [address] | | | SERVICES, CORE | [address] | | | + + + + + RENAL FUNCTION SET (NA,K,CL,CO2,BUN,CREAT,GLUC,CA,PHOS,ALB ) (03/12/2012 7:18 PM PST) + +---------+ + + + | Component | Value | Ref Range | Performed | Pathologist | | | | | At | Signature | + +---------+ + + + | GLUCOSE, | 144 (H) | 60 - 99 mg/dL | [facility] | | | PLASMA | | | LABORATORY | | | (LAB) | | | AR[place], | | | | | | CORE | | + +---------+ + + + | BUN, PLASMA | 18 | 6 - 20 mg/dL | [facility] [...] +---------+ + + + | POTASSIUM, | 3.4 | 3.4 - 5.0 | [facility] | | | PLASMA | | mmol/L | LABORATORY | | | (LAB) | | | SERVICES, | | | | | | CORE | | + +---------+ + + + | CHLORIDE, | 109 (H) | 97 - 108 mmol/L | [facility] | | | PLASMA | | | LABORATORY | | | (LAB) | | | SERVICES, | | | | | | CORE | | + +---------+ + + + | TOTAL CO2, | 20 (L) | 21 - 32 mmol/L | [facility] | | | PLASMA | | | LABORATORY | | | (LAB) | | | SERVICES, | | | | | | CORE | | + +---------+ + + + | CALCIUM, | 7.4 (L) | 8.6 - 10.2 | [facility] | | | PLASMA | | mg/dL | LABORATORY | | | (LAB) | | | SERVICES, | | | | | | CORE | | + +---------+ + + + | ALBUMIN, | 1.9 (L) | 3.5 - 4.7 g/dL | [facility] | | | PLASMA | | | LABORATORY | | | (LAB) | | | SERVICES, | | | | | | CORE | | + +---------+ + + + | PHOSPHORUS, | 1.7 (L) | 2.4 - 4.7 mg/dL | [...] + + + | ANION GAP | 11 | 4 - 11 mmol/L | [facility] | | | | | | LABORATORY | | | | | | SERVICES, | | | | | | CORE | | + +---------+ + + + | ANION | 16 (H) | 4 - 11 mmol/L | [...] | + + + + + | [facility] | [address] | [place] [address] | | | SERVICES, CORE | [address] | | | + + + + + ORDERS OTHER (03/12/2012 12:00 AM PST) + + + | Narrative | Performed At | + + + | | | | | | + + + + + | Procedure Note | + + | Emeka Elias - 05/16/2012 1:18 PM PST | + + ORDERS VITALIY (03/12/2012 12:00 AM PST) + + + | Narrative | Performed At | + + + | | | | | | + + + + + | Procedure Note | + + | Vitaliy, Faculty - 03/28/2012 2:29 PM PST | + + ORDERS OTHER (03/12/2012 12:00 AM PST) + + + | Narrative | Performed At | + + + | | | | | | + + + + + | Procedure Note | + + | Emeka Elias - 03/28/2012 2:29 PM PST | + + documented in this encounter Visit Diagnoses + + | Diagnosis | + + | Sepsis (HCC) - Primary | + + | Crohn disease (HCC) Regional enteritis of unspecified site | + + | 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 - need to repeat in 3months to confirm | | Other and unspecified coagulation defects | + + | Crohn's disease of both small and large intestine with complication (HCC) Regional | | enteritis of small intestine with large intestine | + + | Perirectal abscess Abscess [...] of phosphorus metabolism | + + | TIA (transient ischemic attack) Unspecified transient cerebral ischemia | + + | PFO (patent foramen ovale) Ostium secundum type atrial septal defect | + + | Hypokalemia Hypopotassemia | + + | Pulmonary infiltrates - bilateral, anterior - hemorrhage vs HCAP Other nonspecific | | abnormal finding of lung field | + + documented in this encounter Administered Medications + +--------+ +--------+------+------+ | Medication Order | MAR | Action | Dose | Rate | Site | | | Action | Date | | | | + +--------+ +--------+------+------+ | acetaminophen (aka TYLENOL) | Given | 03/19/20 | 650 mg | | | | tablet 325-650 mg 325-650 mg, | | 12 1:28 | | | | | oral, EVERY 6 HOURS NEEDED, | | AM PST | | | | | Starting 03/15/12 at 1044, | | | | | | | Until 03/19/12 at 0754, pain | | | | | | + +--------+ +--------+------+------+ +-------+ +--------+---+---+ | Given | 03/18/20 | 650 mg | | | | | 12 1:49 | | | | | | PM PST | | | | +-------+ +--------+---+---+ | Given | 03/18/20 | 650 mg | | | | | 12 3:32 | | | | | | AM PST | | | | +-------+ +--------+---+---+ +---+---+ | | | +---+---+ + +-------+ +--------+---+---+ | acetaminophen (aka TYLENOL) | Given | 03/24/20 | 650 mg | | | | tablet 325-650 mg 325-650 mg, | | 12 12:17 | | | | | oral, EVERY 6 HOURS NEEDED, | | AM PST | | | | | Starting 03/19/12 at 0753, | | | | | | | Until 03/28/12 at 0534, pain | | | | | | + +-------+ +--------+---+---+ +-------+ +--------+---+---+ | Given | 03/19/20 | 650 mg | | | | | 12 5:07 | | | | | | PM PST | | | | +-------+ +--------+---+---+ +---+---+ | | | +---+---+ + +-------+ +--------+---+---+ | acetaminophen (aka TYLENOL) | Given | 04/01/20 | 650 mg | | | | tablet 650 mg 650 mg, oral, | | 12 11:32 | | | | | ONCE, 1 dose, 04/01/12 at | | AM PST | | | | | 1100 | | | | | | + +-------+ +--------+---+---+ +---+---+ | | | +---+---+ + +-------+ +------+---+------+ | alteplase (aka CATHFLO | Given | 03/21/20 | 2 mg | | PICC | | ACTIVASE) injection 2 mg 2 mg, | | 12 4:20 | | | | | Intracatheter, ONCE, 1 dose, Tue | | PM PST | | | | | 03/21/12 at 1400 | | | | | | + +-------+ +------+---+------+ +---+---+ | | | +---+---+ + +-------+ +------+---+---+ | alteplase (aka CATHFLO | Given | 03/27/20 | 2 mg | | | | ACTIVASE) injection 2 mg 2 mg, | | 12 7:45 | | | | | Intracatheter, ONCE, 1 dose, Mon | | AM PST | | | | | 03/27/12 at 0700 | | | | | | + +-------+ +------+---+---+ +---+---+ | | | +---+---+ + +-------+ +-------+---+---+ | aluminum-magnesium | Given | 03/13/20 | 30 mL | | | | hydroxide-simethicone (aka | | 12 4:34 | | | | | MAALOX; MYLANTA) 200-200-20 mg/5 | | AM PST | | | | | mL suspension 30 mL 30 mL, oral, | | | | | | | ONCE, 1 dose, 03/13/12 at | | | | | | | 0415 | | | | | | + +-------+ +-------+---+---+ +---+---+ | | | +---+---+ + +-------+ +--------+---+---+ | aspirin tablet 325 mg 325 mg, | Given | 03/14/20 | 325 mg | | | | oral, DAILY, First dose on Mon | | 12 9:35 | | | | | 03/13/12 at 1345, Until | | AM PST | | | | | Discontinued | | | | | | + +-------+ +--------+---+---+ +-------+ +--------+---+---+ | Given | 03/13/20 | 325 mg | | | | | 12 2:18 | | | | | | PM PST | | | | +-------+ +--------+---+---+ +---+---+ | | | +---+---+ + +-------+ + +---+---+ | barium sulfate (aka VOLUMEN) | Given | 03/30/20 | 1,350 mL | | | | oral suspension 1,350 mL 1,350 | | 12 4:37 | | | | | mL, oral, ONCE, 1 dose, [facility] | | PM PST | | | | | 03/30/12 at 1630 | | | | | | + +-------+ + +---+---+ +---+---+ | | | +---+---+ + +-------+ +--------+---+---+ | barium sulfate (aka VOLUMEN) | Given | 03/30/20 | 900 mL | | | | oral suspension 900 mL 900 mL, | | 12 5:56 | | | | | oral, RADIOLOGY ONCE, 1 dose, | | PM PST | | | | | First dose on [facility] 03/30/12 at | | | | | | | 1800 | | | | | | + +-------+ +--------+---+---+ +---+---+ | | | +---+---+ + +---------+ +-----+--------+---+ | ceFEPIme (aka MAXIPIME) IV | New Bag | 03/20/20 | 1 g | mL/hr | | | (minibag+) 1 g 1 g, intravenous, | | 12 4:31 | | | | | EVERY 8 HOURS, First dose on Sun | | AM PST | | | | | 03/19/12 at 1930, Until | | | | | | | Discontinued | | | | | | + +---------+ +-----+--------+---+ +---------+ +-----+--------+---+ | New Bag | 03/19/20 | 1 g | mL/hr | | | | 12 8:37 | | | | | | PM PST | | | | +---------+ +-----+--------+---+ +---+---+ | | | +---+---+ + +---------+ +-----+--------+---+ | ceFEPIme (aka MAXIPIME) IV | New Bag | 03/20/20 | 2 g | mL/hr | | | (minibag+) 2 g 2 g, intravenous, | | 12 12:34 | | | | | EVERY 12 HOURS, First dose on | | PM PST | | | | | 03/20/12 at 1200, Until | | | | | | | Discontinued | | | | | | + +---------+ +-----+--------+---+ +---+---+ | | | +---+---+ + +---------+ +-----+--------+---+ | ceFEPIme (aka MAXIPIME) IV | New Bag | 12/12/20 | 2 g | mL/hr | | | (minibag+) 2 g 2 g, intravenous, | | 12 9:58 | | | | | EVERY 12 HOURS, First dose on | | AM PST | | | | | 03/21/12 at 1100, Until | | | | | | | Discontinued | | | | | | + +---------+ +-----+--------+---+ +---------+ +-----+--------+---+ | New Bag | 03/21/20 | 2 g | mL/hr | | | | 12 11:29 | | | | | | PM PST | | | | +---------+ +-----+--------+---+ | New Bag | 03/21/20 | 2 g | mL/hr | | | | 12 11:47 | | | | | | AM PST | | | | +---------+ +-----+--------+---+ +---+---+ | | | +---+---+ + +---------+ +-----+--------+---+ | ceFEPIme (aka MAXIPIME) IV | New Bag | 03/29/20 | 2 g | mL/hr | | | (minibag+) 2 g 2 g, intravenous, | | 12 1:58 | | | | | EVERY 8 HOURS, First dose (after | | AM PST | | | | | last modification) on Wed | | | | | | | 03/22/12 at 1800, Until | | | | | | | Discontinued | | | | | | + +---------+ +-----+--------+---+ +---------+ +-----+--------+---+ | New Bag | 03/28/20 | 2 g | mL/hr | | | | 12 5:55 | | | | | | PM PST | | | | +---------+ +-----+--------+---+ | New Bag | 03/28/20 | 2 g | mL/hr | | | | 12 10:58 | | | | | | AM PST | | | | +---------+ +-----+--------+---+ +---+---+ | | | +---+---+ + +---------+ +-----+--------+---+ | cefTRIAXone (aka ROCEPHIN) IV 1 | New Bag | 03/12/20 | 1 g | mL/hr | | | g 1 g, intravenous, EVERY 24 | | 12 11:01 | | | | | HOURS, First dose on 03/12/12 | | PM PST | | | | | at 2230, Until Discontinued | | | | | | + +---------+ +-----+--------+---+ +---+---+ | | | +---+---+ + +-------+ +--------+---+---+ | cephALEXin (aka KEFLEX) capsule | Given | 03/19/20 | 250 mg | | | | 250 mg 250 mg, oral, EVERY 6 | | 12 3:14 | | | | | HOURS, First dose on 03/19/12 | | PM PST | | | | | at 1600, Until Discontinued | | | | | | + +-------+ +--------+---+---+ +---+---+ | | | +---+---+ + +-------+ +--------+---+---+ | ciprofloxacin (aka CIPRO) | Given | 03/16/20 | 500 mg | | | | tablet 500 mg 500 mg, oral, | | 12 7:58 | | | | | TWICE DAILY, 3 doses, First dose | | PM PST | | | | | on 03/15/12 at 2100, Last dose | | | | | | | on [facility] 03/16/12 at 2100 | | | | | | + +-------+ +--------+---+---+ +-------+ +--------+---+---+ | Given | 03/16/20 | 500 mg | | | | | 12 9:34 | | | | | | AM PST | | | | +-------+ +--------+---+---+ | Given | 03/15/20 | 500 mg | | | | | 12 8:36 | | | | | | PM PST | | | | +-------+ +--------+---+---+ +---+---+ | | | +---+---+ + +-------+ +--------+---+---+ | ciprofloxacin (aka CIPRO) | Given | 03/19/20 | 500 mg | | | | tablet 500 mg 500 mg, oral, | | 12 9:20 | | | | | TWICE DAILY, First dose (after | | AM PST | | | | | last modification) on Tue03/17/12 | | | | | | | at 2100, Until Discontinued | | | | | | + +-------+ +--------+---+---+ +-------+ +--------+---+---+ | Given | 03/18/20 | 500 mg | | | | | 12 9:55 | | | | | | PM PST | | | | +-------+ +--------+---+---+ | Given | 03/18/20 | 500 mg | | | | | 12 8:48 | | | | | | AM PST | | | | +-------+ +--------+---+---+ +---+---+ | | | +---+---+ + +-------+ +--------+---+---+ | ciprofloxacin (aka CIPRO) | Given | 04/01/20 | 750 mg | | | | tablet 750 mg 750 mg, oral, | | 12 10:49 | | | | | TWICE DAILY, First dose on Tue | | AM PST | | | | | 03/29/12 at 1100, Until | | | | | | | Discontinued | | | | | | + +-------+ +--------+---+---+ +-------+ +--------+---+---+ | Given | 03/31/20 | 750 mg | | | | | 12 9:02 | | | | | | PM PST | | | | +-------+ +--------+---+---+ | Given | 03/31/20 | 750 mg | | | | | 12 9:41 | | | | | | AM PST | | | | +-------+ +--------+---+---+ +---+---+ | | | +---+---+ + +-------+ +--------+---+---+ | codeine tablet 180 mg 180 mg, | Given | 03/28/20 | 180 mg | | | | oral, DAILY, First dose on Sat | | 12 8:46 | | | | | 03/25/12 at 1145, Until | | AM PST | | | | | Discontinued | | | | | | + +-------+ +--------+---+---+ +-------+ +--------+---+---+ | Given | 03/27/20 | 180 mg | | | | | 12 8:30 | | | | | | AM PST | | | | +-------+ +--------+---+---+ | Given | 03/26/20 | 180 mg | | | | | 12 9:27 | | | | | | AM PST | | | | +-------+ +--------+---+---+ +---+---+ | | | +---+---+ + +-------+ +--------+---+---+ | codeine tablet 360 mg 360 mg, | Given | 03/24/20 | 360 mg | | | | oral, DAILY, First dose on Tue | | 12 10:46 | | | | | 03/15/12 at 1215, Until | | AM PST | | | | | Discontinued | | | | | | + +-------+ +--------+---+---+ +-------+ +--------+---+---+ | Given | 03/23/20 | 360 mg | | | | | 12 9:50 | | | | | | AM PST | | | | +-------+ +--------+---+---+ | Given | 03/22/20 | 360 mg | | | | | 12 8:50 | | | | | | AM PST | | | | +-------+ +--------+---+---+ +---+---+ | | | +---+---+ + +-------+ +---------+---+---+ | cyanocobalamin (aka VITAMIN | Given | 03/29/20 | 100 mcg | | | | B-12) injection 100 mcg 100 mcg, | | 12 9:34 | | | | | subcutaneous, DAILY, 7 doses, | | AM PST | | | | | First dose on [facility] 03/23/12 at | | | | | | | 1715, Until Discontinued | | | | | | + +-------+ +---------+---+---+ +-------+ +---------+---+---+ | Given | 03/28/20 | 100 mcg | | | | | 12 10:27 | | | | | | AM PST | | | | +-------+ +---------+---+---+ | Given | 03/27/20 | 100 mcg | | | | | 12 8:30 | | | | | | AM PST | | | | +-------+ +---------+---+---+ +---+---+ | | | +---+---+ + +---------+ +-------+-------+---+ | dextrose 5%-NaCl 0.45%-KCl 20 | New Bag | 03/28/20 | 100 | 100 | | | mEq/L IV infusion 100 mL/hr, | | 12 12:00 | mL/hr | mL/hr | | | intravenous, CONTINUOUS, Starting | | AM PST | | | | | 03/28/12 at 0000, Until Tue | | | | | | | 12 at 1208 | | | | | | + +---------+ +-------+-------+---+ +---+---+ | | | +---+---+ + +---------+ + + +---+ | dextrose 5%-NaCl 0.45%-KCl 20 | New Bag | 03/28/20 | 75 mL/hr | 75 mL/hr | | | mEq/L IV infusion 75 mL/hr, | | 12 12:10 | | | | | intravenous, CONTINUOUS, Starting | | PM PST | | | | | 03/28/12 at 1215, Until Tue | | | | | | | 03/28/12 at 1444 | | | | | | + +---------+ + + +---+ +---+---+ | | | +---+---+ + +---------+ +-------+-------+---+ | dextrose 5%-NaCl 0.45%-KCl 20 | New Bag | 03/29/20 | 125 | 125 | | | mEq/L IV infusion 125 mL/hr, | | 12 3:20 | mL/hr | mL/hr | | | intravenous, CONTINUOUS, Starting | | PM PST | | | | | 03/28/12 at 1445, Until Wed | | | | | | | 03/29/12 at 1624 | | | | | | + +---------+ +-------+-------+---+ +---------+ +-------+-------+---+ | New Bag | 03/29/20 | 125 | 125 | | | | 12 1:58 | mL/hr | mL/hr | | | | AM PST | | | | +---------+ +-------+-------+---+ | New Bag | 03/28/20 | 125 | 125 | | | | 12 4:48 | mL/hr | mL/hr | | | | PM PST | | | | +---------+ +-------+-------+---+ +---+---+ | | | +---+---+ + +---------+ +-------+--------+---+ | diphenhydrAMINE (aka BENADRYL) | New Bag | 04/01/20 | 25 mg | mL/hr | | | injection 25 mg 25 mg, | | 12 11:30 | | | | | intravenous, ONCE, 1 dose, Sat | | AM PST | | | | | 04/01/12 at 1100 | | | | | | + +---------+ +-------+--------+---+ +---+---+ | | | +---+---+ + +-------+ +-------+---+---+ | enoxaparin (aka LOVENOX) | Given | 03/19/20 | 80 mg | | | | injection 80 mg 80 mg, | | 12 11:48 | | | | | subcutaneous, EVERY 12 HOURS, | | PM PST | | | | | First dose on 03/18/12 at | | | | | | | 1400, Until Discontinued | | | | | | + +-------+ +-------+---+---+ +-------+ +-------+---+---+ | Given | 03/19/20 | 80 mg | | | | | 12 1:05 | | | | | | PM PST | | | | +-------+ +-------+---+---+ | Given | 03/18/20 | 80 mg | | | | | 12 11:53 | | | | | | PM PST | | | | +-------+ +-------+---+---+ +---+---+ | | | +---+---+ + +-------+ +-------+---+---+ | enoxaparin (aka LOVENOX) | Given | 04/01/20 | 80 mg | | | | injection 80 mg 80 mg, | | 12 10:50 | | | | | subcutaneous, EVERY 12 HOURS, | | AM PST | | | | | First dose on [facility] 03/30/12 at | | | | | | | 1600, Until Discontinued | | | | | | + +-------+ +-------+---+---+ +-------+ +-------+---+---+ | Given | 03/31/20 | 80 mg | | | | | 12 9:02 | | | | | | PM PST | | | | +-------+ +-------+---+---+ | Given | 03/31/20 | 80 mg | | | | | 12 9:41 | | | | | | AM PST | | | | +-------+ +-------+---+---+ +---+---+ | | | +---+---+ + +---------+ +-------+--------+---+ | esomeprazole (aka NEXIUM) IV 40 | New Bag | 03/14/20 | 40 mg | mL/hr | | | mg 40 mg, intravenous, TWICE | | 12 8:02 | | | | | DAILY, First dose (after last | | AM PST | | | | | modification) on 03/13/12 at | | | | | | | 0900, Until Discontinued | | | | | | + +---------+ +-------+--------+---+ +---------+ +-------+--------+---+ | New Bag | 03/13/20 | 40 mg | mL/hr | | | | 12 8:33 | | | | | | PM PST | | | | +---------+ +-------+--------+---+ | New Bag | 03/13/20 | 40 mg | mL/hr | | | | 12 7:36 | | | | | | AM PST | | | | +---------+ +-------+--------+---+ +---+---+ | | | +---+---+ + +---------+ +-------+--------+---+ | esomeprazole (aka NEXIUM) IV 80 | New Bag | 03/28/20 | 80 mg | mL/hr | | | mg 80 mg, intravenous, ONCE, 1 | | 12 5:05 | | | | | dose, 03/28/12 at 0400 | | AM PST | | | | + +---------+ +-------+--------+---+ +---+---+ | | | +---+---+ + +---------+ +---------+ +---+ | esomeprazole (aka NEXIUM) IV | New Bag | 03/29/20 | 8 mg/hr | 10 mL/hr | | | infusion 8 mg/hr (rounded to 10 | | 12 3:20 | | | | | mL/hr), intravenous, CONTINUOUS, | | PM PST | | | | | Starting 03/28/12 at 0400, | | | | | | | Until Tue03/31/12 at 1201 | | | | | | + +---------+ +---------+ +---+ +---------+ +---------+ +---+ | New Bag | 03/29/20 | 8 mg/hr | 10 mL/hr | | | | 12 1:58 | | | | | | AM PST | | | | +---------+ +---------+ +---+ | New Bag | 03/28/20 | 8 mg/hr | 10 mL/hr | | | | 12 4:30 | | | | | | PM PST | | | | +---------+ +---------+ +---+ +---+---+ | | | +---+---+ + +---------+ +---------+--------+---+ | fentaNYL citrate (PF) (aka | New Bag | 03/29/20 | 350 mcg | mL/hr | | | SUBLIMAZE) injection 350 mcg 350 | | 12 12:24 | | | | | mcg, intravenous, ONCE, 1 dose, | | PM PST | | | | | 03/29/12 at 1345 | | | | | | + +---------+ +---------+--------+---+ +---+---+ | | | +---+---+ + +---------+ +--------+--------+ + | fentaNYL citrate (PF) (aka | New Bag | 03/17/20 | 50 mcg | mL/hr | Left Arm | | SUBLIMAZE) injection 50 mcg 50 | | 12 12:44 | | | | | mcg, intravenous, POSTPROCEDURE | | PM PST | | | | | PRN, Starting Tue03/17/12 at | | | | | | | 1020, Until Tue03/17/12 at 1404, | | | | | | | moderate pain | | | | | | + +---------+ +--------+--------+ + + +---+ | | | + +---+ | fentaNYL citrate (PF) (aka | | | SUBLIMAZE) injection 1 dose, | | | Starting Tue03/29/12 at 1112, | | | Until Tue03/29/12 at 1224 | | + +---+ | | | + +---+ + +-------+ +--------+---+---+ | glucagon (aka GLUCAGEN) | Given | 03/30/20 | 0.5 mg | | | | injection 0.5 mg 0.5 mg, | | 12 5:51 | | | | | intramuscular, RADIOLOGY ONCE, 1 | | PM PST | | | | | dose, First dose on [facility] 03/30/12 | | | | | | | at 1800 | | | | | | + +-------+ +--------+---+---+ +---+---+ | | | +---+---+ + +---------+ + +--------+---+ | heparin 10 unit/mL IV flush | New Bag | 03/23/20 | 50 Units | mL/hr | | | syringe 50 Units 50 Units, | | 12 2:03 | | | | | intravenous, NEEDED, Starting | | PM PST | | | | | 03/14/12 at 0056, Until Sun | | | | | | | 04/02/12 at 0016, line patency, | | | | | | | per protocol | | | | | | + +---------+ + +--------+---+ +---------+ + +--------+---+ | New Bag | 03/23/20 | 50 Units | mL/hr | | | | 12 2:02 | | | | | | PM PST | | | | +---------+ + +--------+---+ | New Bag | 03/15/20 | 50 Units | mL/hr | | | | 12 9:04 | | | | | | AM PST | | | | +---------+ + +--------+---+ +---+---+ | | | +---+---+ + + + +--------+--------+---+ | heparin bolus from continuous | Bolus | 03/13/20 | 5,600 | mL/hr | | | infusion (protocol) 5,600 Units | from | 12 5:02 | Units | | | | intravenous, BOLUS PRN, Starting | Same Bag | AM PST | | | | | 03/12/12 at 2119, Until Sat | | | | | | | 03/18/12 at 1303, (aPTT < or = 55 | | | | | | | secs) OR (heparin level < 0.1 | | | | | | | units/mL) | | | | | | + + + +--------+--------+---+ +---+---+ | | | +---+---+ + +---------+ + +-------+---+ | heparin in D5W IV infusion | New Bag | 03/13/20 | 1,550 | 15.5 | | | 25,000 units/250 mL (100 | | 12 12:17 | Units/hr | mL/hr | | | units/mL) 1-2,000 Units/hr | | PM PST | | | | | (rounded to 0.01-20 mL/hr), | | | | | | | intravenous, CONTINUOUS, Starting | | | | | | | 03/12/12 at 2200, Until Mon | | | | | | | 03/13/12 at 1223 | | | | | | + +---------+ + +-------+---+ + + + +-------+---+ | Rate/Dose Change | 03/13/20 | 1,550 | 15.5 | | | | 12 5:02 | Units/hr | mL/hr | | | | AM PST | | | | + + + +-------+---+ | New Bag | 03/12/20 | 1,250 | 12.5 | | | | 12 9:45 | Units/hr | mL/hr | | | | PM PST | | | | + + + +-------+---+ +---+---+ | | | +---+---+ + +---------+ + +-------+---+ | heparin in D5W IV infusion | New Bag | 03/18/20 | 1,850 | 18.5 | | | 25,000 units/250 mL (100 | | 12 11:19 | Units/hr | mL/hr | | | units/mL) 1-2,000 Units/hr | | AM PST | | | | | (rounded to 0.01-20 mL/hr), | | | | | | | intravenous, CONTINUOUS, Starting | | | | | | | 03/13/12 at 1300, Until Sat | | | | | | | 03/18/12 at 1303 | | | | | | + +---------+ + +-------+---+ +---------+ + + +---+ | New Bag | 03/18/20 | 1,700 | 17 mL/hr | | | | 12 4:11 | Units/hr | | | | | AM PST | | | | +---------+ + + +---+ | New Bag | 03/16/20 | 1,700 | 17 mL/hr | | | | 12 6:27 | Units/hr | | | | | PM PST | | | | +---------+ + + +---+ +---+---+ | | | +---+---+ + +---------+ + +-------+---+ | heparin in D5W IV infusion | New Bag | 03/30/20 | 17.5 | 0.18 | | | 25,000 units/250 mL (100 | | 12 10:52 | Units/hr | mL/hr | | | units/mL) 1-2,000 Units/hr | | AM PST | | | | | (rounded to 0.01-20 mL/hr), | | | | | | | intravenous, CONTINUOUS, Starting | | | | | | | 03/29/12 at 1645, Until Gisel | | | | | | | 03/30/12 at 1425 | | | | | | + +---------+ + +-------+---+ + + + + +---+ | Rate/Dose Change | 03/30/20 | 1,750 | 17.5 | | | | 12 7:12 | Units/hr | mL/hr | | | | AM PST | | | | + + + + +---+ | Rate/Dose Change | 03/30/20 | 1,600 | 16 mL/hr | | | | 12 12:35 | Units/hr | | | | | AM PST | | | | + + + + +---+ +---+---+ | | | +---+---+ + +---------+ +--------+--------+---+ | hydrocortisone sodium succinate | New Bag | 03/12/20 | 100 mg | mL/hr | | | (PF) (aka ILA-CORTEF) injection | | 12 8:36 | | | | | 100 mg 100 mg, intravenous, | | PM PST | | | | | EVERY 8 HOURS, First dose on Sun | | | | | | | 03/12/12 at 2014, Until | | | | | | | Discontinued | | | | | | + +---------+ +--------+--------+---+ +---+---+ | | | +---+---+ + +---------+ +--------+--------+---+ | HYDROmorphone (aka DILAUDID) | New Bag | 03/13/20 | 0.4 mg | mL/hr | | | injection 0.2-0.6 mg 0.2-0.6 mg, | | 12 3:15 | | | | | intravenous, EVERY 2 HOURS | | AM PST | | | | | NEEDED, Starting 03/12/12 at | | | | | | | 1935, Until 03/13/12 at 0335, | | | | | | | moderate pain | | | | | | + +---------+ +--------+--------+---+ +---+---+ | | | +---+---+ + +---------+ +--------+--------+---+ | inFLIXimab (aka REMICADE) IV | New Bag | 04/01/20 | 360 mg | mL/hr | | | 360 mg 360 mg, intravenous, | | 12 12:06 | | | | | ONCE, 1 dose, 04/01/12 at | | PM PST | | | | | 1100 | | | | | | + +---------+ +--------+--------+---+ +---+---+ | | | +---+---+ + +-------+ +---------+---+---+ | insulin lispro (aka HUMALOG) | Given | 03/19/20 | 1 Units | | | | injection 1-16 Units 1-16 Units, | | 12 11:56 | | | | | subcutaneous, EVERY 6 HOURS, | | PM PST | | | | | First dose on Tue03/13/12 at | | | | | | | 0000, Until Discontinued | | | | | | + +-------+ +---------+---+---+ +-------+ +---------+---+---+ | Given | 03/14/20 | 2 Units | | | | | 12 1:40 | | | | | | PM PST | | | | +-------+ +---------+---+---+ | Given | 03/14/20 | 2 Units | | | | | 12 9:45 | | | | | | AM PST | | | | +-------+ +---------+---+---+ +---+---+ | | | +---+---+ + +---------+ +--------+--------+---+ | iopamidol (aka ISOVUE-370) | New Bag | 03/15/20 | 100 mL | mL/hr | | | injection 100 mL 100 mL, | | 12 1:45 | | | | | intravenous, PROCEDURE ONCE, 1 | | PM PST | | | | | dose, [facility] 03/15/12 at 1415 | | | | | | + +---------+ +--------+--------+---+ +---+---+ | | | +---+---+ + +---------+ +--------+--------+---+ | iopamidol (aka ISOVUE-370) | New Bag | 03/24/20 | 100 mL | mL/hr | | | injection 100 mL 100 mL, | | 12 9:04 | | | | | intravenous, PROCEDURE ONCE, 1 | | PM PST | | | | | dose, [place] 03/24/12 at 1630 | | | | | | + +---------+ +--------+--------+---+ +---+---+ | | | +---+---+ + +---------+ +--------+-------+---+ | iron sucrose (aka VENOFER) 400 | New Bag | 03/15/20 | 400 mg | 108 | | | mg in NaCl 0.9 % IV 400 mg, | | 12 8:39 | | mL/hr | | | intravenous, Administer over 2.5 | | PM PST | | | | | Hours, ONCE, 1 dose, 03/15/12 | | | | | | | at 1800, Infuse 300 mg over 1.5 | | | | | | | hours, and 400 mg over 2.5 hours, | | | | | | | | | | | | | + +---------+ +--------+-------+---+ +---+---+ | | | +---+---+ + +---------+ +--------+-------+---+ | iron sucrose (aka VENOFER) 400 | New Bag | 03/16/20 | 400 mg | 180 | | | mg in NaCl 0.9 % IV 400 mg, | | 12 10:32 | | mL/hr | | | intravenous, Administer over 1.5 | | PM PST | | | | | Hours, ONCE, 1 dose, [facility] 03/16/12 | | | | | | | at 2100, Infuse 300 mg over 1.5 | | | | | | | hours, and 400 mg over 2.5 hours, | | | | | | | | | | | | | + +---------+ +--------+-------+---+ +---+---+ | | | +---+---+ + +---------+ + +--------+---+ | lactated ringers IV bolus 1,000 | New Bag | 03/21/20 | 1,000 mL | mL/hr | | | mL 1,000 mL, intravenous, ONCE, | | 12 3:06 | | | | | 1 dose, [facility] 03/21/12 at 1515 | | PM PST | | | | + +---------+ + +--------+---+ +---+---+ | | | +---+---+ + +---------+ + +--------+---+ | lactated ringers IV bolus 1,000 | New Bag | 03/28/20 | 1,000 mL | mL/hr | | | mL 1,000 mL, intravenous, ONCE, | | 12 3:48 | | | | | 1 dose, 03/28/12 at 1615 | | PM PST | | | | + +---------+ + +--------+---+ +---+---+ | | | +---+---+ + +---------+ + + +---+ | lactated ringers IV 75 mL/hr, | New Bag | 03/14/20 | 75 mL/hr | 75 mL/hr | | | intravenous, CONTINUOUS, Starting | | 12 1:40 | | | | | 03/12/12 at 2015, Until Tue | | PM PST | | | | | 03/14/12 at 1817 | | | | | | + +---------+ + + +---+ +---------+ + + +---+ | New Bag | 03/13/20 | 75 mL/hr | 75 mL/hr | | | | 12 11:09 | | | | | | PM PST | | | | +---------+ + + +---+ | New Bag | 03/13/20 | 75 mL/hr | 75 mL/hr | | | | 12 12:04 | | | | | | PM PST | | | | +---------+ + + +---+ +---+---+ | | | +---+---+ + +---------+ +-------+-------+---+ | lactated ringers IV 100 mL/hr, | New Bag | 03/17/20 | 100 | 100 | | | intravenous, CONTINUOUS, | | 12 2:55 | mL/hr | mL/hr | | | Starting Tue03/17/12 at 0000, | | PM PST | | | | | Until Tue03/17/12 at 1716 | | | | | | + +---------+ +-------+-------+---+ +---------+ +-------+-------+---+ | New Bag | 03/17/20 | 100 | 100 | | | | 12 12:30 | mL/hr | mL/hr | | | | AM PST | | | | +---------+ +-------+-------+---+ +---+---+ | | | +---+---+ + +-------+ +-------+---+---+ | lidocaine viscous (aka | Given | 03/13/20 | 30 mL | | | | XYLOCAINE VISCOUS) 2 % mucosal | | 12 4:34 | | | | | solution 30 mL 30 mL, oral, | | AM PST | | | | | ONCE, 1 dose, 03/13/12 at 0415 | | | | | | + +-------+ +-------+---+---+ +---+---+ | | | +---+---+ + +---------+ +--------+--------+---+ | LORazepam (aka ATIVAN) | New Bag | 03/28/20 | 0.5 mg | mL/hr | | | injection 0.5 mg 0.5 mg, | | 12 5:05 | | | | | intravenous, EVERY 6 HOURS | | AM PST | | | | | NEEDED, Starting 03/21/12 at | | | | | | | 1056, Until Tue03/28/12 at 0534, | | | | | | | nausea/vomiting | | | | | | + +---------+ +--------+--------+---+ +---------+ +--------+--------+---+ | New Bag | 03/27/20 | 0.5 mg | mL/hr | | | | 12 10:08 | | | | | | PM PST | | | | +---------+ +--------+--------+---+ | New Bag | 03/27/20 | 0.5 mg | mL/hr | | | | 12 3:56 | | | | | | PM PST | | | | +---------+ +--------+--------+---+ +---+---+ | | | +---+---+ + +---------+ +--------+--------+---+ | LORazepam (aka ATIVAN) | New Bag | 03/28/20 | 0.5 mg | mL/hr | | | injection 0.5 mg 0.5 mg, | | 12 5:13 | | | | | intravenous, ONCE, 1 dose, Tue | | AM PST | | | | | 03/28/12 at 0545 | | | | | | + +---------+ +--------+--------+---+ +---+---+ | | | +---+---+ + +---------+ +--------+--------+---+ | LORazepam (aka ATIVAN) | New Bag | 03/28/20 | 0.5 mg | mL/hr | | | injection 0.5 mg 0.5 mg, | | 12 11:30 | | | | | intravenous, ONCE, 1 dose, Tue | | AM PST | | | | | 03/28/12 at 1200 | | | | | | + +---------+ +--------+--------+---+ +---+---+ | | | +---+---+ + +---------+ +------+--------+---+ | LORazepam (aka ATIVAN) | New Bag | 03/17/20 | 1 mg | mL/hr | | | injection 1 mg 1 mg, | | 12 8:05 | | | | | intravenous, ONCE, 1 dose, Fri | | AM PST | | | | | 03/17/12 at 0845 | | | | | | + +---------+ +------+--------+---+ +---+---+ | | | +---+---+ + +---------+ +------+--------+---+ | LORazepam (aka ATIVAN) | New Bag | 03/24/20 | 1 mg | mL/hr | | | injection 1 mg 1 mg, | | 12 6:03 | | | | | intravenous, ONCE, 1 dose, Fri | | PM PST | | | | | 03/24/12 at 1800 | | | | | | + +---------+ +------+--------+---+ +---+---+ | | | +---+---+ + +---------+ +------+--------+---+ | LORazepam (aka ATIVAN) | New Bag | 03/28/20 | 1 mg | mL/hr | | | injection 1 mg 1 mg, | | 12 7:27 | | | | | intravenous, EVERY 6 HOURS | | AM PST | | | | | NEEDED, Starting 03/28/12 at | | | | | | | 0530, Until Tue03/28/12 at 1111, | | | | | | | nausea/vomiting | | | | | | + +---------+ +------+--------+---+ +---+---+ | | | +---+---+ + +---------+ +------+--------+---+ | LORazepam (aka ATIVAN) | New Bag | 03/30/20 | 1 mg | mL/hr | | | injection 1 mg 1 mg, | | 12 8:12 | | | | | intravenous, EVERY 4 HOURS | | AM PST | | | | | NEEDED, Starting Tue03/28/12 at | | | | | | | 1115, Until [facility] 03/30/12 at 1055, | | | | | | | nausea/vomiting | | | | | | + +---------+ +------+--------+---+ +---------+ +------+--------+---+ | New Bag | 03/30/20 | 1 mg | mL/hr | | | | 12 2:36 | | | | | | AM PST | | | | +---------+ +------+--------+---+ | New Bag | 03/29/20 | 1 mg | mL/hr | | | | 12 5:33 | | | | | | PM PST | | | | +---------+ +------+--------+---+ + +---+ | | | + +---+ | LORazepam (aka ATIVAN) | | | injection 1 dose, Starting Fri | | | 03/17/12 at 0802, Until Fri | | | 03/17/12 at 0805 | | + +---+ | | | + +---+ + +-------+ +--------+---+---+ | LORazepam (aka ATIVAN) tablet | Given | 04/01/20 | 0.5 mg | | | | 0.5 mg 0.5 mg, oral, EVERY 4 | | 12 2:06 | | | | | HOURS NEEDED, Starting [place] | | AM PST | | | | | 03/30/12 at 1054, Until Sun | | | | | | | 04/02/12 at 0016, anxiety | | | | | | + +-------+ +--------+---+---+ +-------+ +--------+---+---+ | Given | 03/31/20 | 0.5 mg | | | | | 12 9:03 | | | | | | PM PST | | | | +-------+ +--------+---+---+ | Given | 03/31/20 | 0.5 mg | | | | | 12 3:06 | | | | | | PM PST | | | | +-------+ +--------+---+---+ +---+---+ | | | +---+---+ + +-------+ +------+---+---+ | LORazepam (aka ATIVAN) tablet 1 | Given | 03/20/20 | 1 mg | | | | mg 1 mg, oral, EVERY EVENING | | 12 10:07 | | | | | NEEDED, Starting 03/20/12 at | | PM PST | | | | | 2118, Until Tu03/21/12 at | | | | | | | 1053, anxiety | | | | | | + +-------+ +------+---+---+ +---+---+ | | | +---+---+ + +-------+ +------+---+---+ | LORazepam (aka ATIVAN) tablet 1 | Given | 04/01/20 | 1 mg | | | | mg 1 mg, oral, ONCE, 1 dose, | | 12 10:49 | | | | | 04/01/12 at 1030 | | AM PST | | | | + +-------+ +------+---+---+ +---+---+ | | | +---+---+ + +---------+ +-----+--------+---+ | magnesium sulfate IV (premade) | New Bag | 03/21/20 | 1 g | mL/hr | | | 1 g 1 g, intravenous, ONCE, 1 | | 12 4:30 | | | | | dose, 03/21/12 at 1700 | | PM PST | | | | + +---------+ +-----+--------+---+ +---+---+ | | | +---+---+ + +---------+ +-----+--------+---+ | magnesium sulfate IV (premade) | New Bag | 03/21/20 | 1 g | mL/hr | | | 1 g 1 g, intravenous, ONCE, 1 | | 12 6:43 | | | | | dose, [facility] 03/21/12 at 1900 | | PM PST | | | | + +---------+ +-----+--------+---+ +---+---+ | | | +---+---+ + +---------+ +-----+--------+---+ | magnesium sulfate IV (premade) | New Bag | 03/22/20 | 1 g | mL/hr | | | 1 g 1 g, intravenous, ONCE, 1 | | 12 11:00 | | | | | dose, 03/22/12 at 2100 | | PM PST | | | | + +---------+ +-----+--------+---+ +---+---+ | | | +---+---+ + +---------+ +-----+--------+---+ | magnesium sulfate IV (premade) | New Bag | 03/23/20 | 1 g | mL/hr | | | 1 g 1 g, intravenous, ONCE, 1 | | 12 12:35 | | | | | dose, [place] 03/23/12 at 1200 | | PM PST | | | | + +---------+ +-----+--------+---+ +---+---+ | | | +---+---+ + +---------+ +-----+--------+---+ | magnesium sulfate IV 2 g 2 g, | New Bag | 03/24/20 | 2 g | mL/hr | | | intravenous, ONCE, 1 dose, Fri | | 12 12:22 | | | | | 03/24/12 at 1300 | | PM PST | | | | + +---------+ +-----+--------+---+ +---+---+ | | | +---+---+ + +---------+ +-----+--------+---+ | magnesium sulfate IV 2 g 2 g, | New Bag | 03/25/20 | 2 g | mL/hr | | | intravenous, ONCE, 1 dose, Sat | | 12 11:00 | | | | | 03/25/12 at 1030 | | AM PST | | | | + +---------+ +-----+--------+---+ +---+---+ | | | +---+---+ + +---------+ +-----+--------+---+ | magnesium sulfate IV 2 g 2 g, | New Bag | 03/27/20 | 2 g | mL/hr | | | intravenous, ONCE, 1 dose, Mon | | 12 3:56 | | | | | 03/27/12 at 1500 | | PM PST | | | | + +---------+ +-----+--------+---+ +---+---+ | | | +---+---+ + +---------+ +-----+--------+---+ | magnesium sulfate IV 2 g 2 g, | New Bag | 03/28/20 | 2 g | mL/hr | | | intravenous, ONCE, 1 dose, Tue | | 12 5:05 | | | | | 03/28/12 at 0430 | | AM PST | | | | + +---------+ +-----+--------+---+ +---+---+ | | | +---+---+ + +---------+ +-----+--------+---+ | magnesium sulfate IV 2 g 2 g, | New Bag | 03/28/20 | 2 g | mL/hr | | | intravenous, ONCE, 1 dose, Tue | | 12 6:50 | | | | | 03/28/12 at 1900 | | PM PST | | | | + +---------+ +-----+--------+---+ +---+---+ | | | +---+---+ + +---------+ +-----+ +---+ | magnesium sulfate IV 2 g 2 g, | New Bag | 03/29/20 | 2 g | 15 mL/hr | | | intravenous, ONCE, 1 dose, Wed | | 12 6:48 | | | | | 03/29/12 at 0645 | | AM PST | | | | + +---------+ +-----+ +---+ +---+---+ | | | +---+---+ + +---------+ +-----+--------+---+ | magnesium sulfate IV 4 g 4 g, | New Bag | 03/12/20 | 4 g | mL/hr | | | intravenous, ONCE, 1 dose, Sun | | 12 8:32 | | | | | 03/12/12 at 2100 | | PM PST | | | | + +---------+ +-----+--------+---+ +---+---+ | | | +---+---+ + +---------+ +-----+--------+---+ | magnesium sulfate IV 4 g 4 g, | New Bag | 03/26/20 | 4 g | mL/hr | | | intravenous, ONCE, 1 dose, Sun | | 12 10:56 | | | | | 03/26/12 at 1030 | | AM PST | | | | + +---------+ +-----+--------+---+ +---+---+ | | | +---+---+ + +---------+ +-----+--------+---+ | magnesium sulfate IV 4 g 4 g, | New Bag | 03/30/20 | 4 g | mL/hr | | | intravenous, ONCE, 1 dose, [place] | | 12 11:22 | | | | | 03/30/12 at 1200 | | AM PST | | | | + +---------+ +-----+--------+---+ +---+---+ | | | +---+---+ + +-------+ +---+---+---+ | menthol-zinc oxide (aka | Given | 03/22/20 | | | | | CALAZIME) topical paste topical, | | 12 8:51 | | | | | TWICE DAILY NEEDED, Starting | | AM PST | | | | | 03/13/12 at 0019, Until Tue | | | | | | | 03/28/12 at 0532, skin | | | | | | | irritation/breakdown | | | | | | + +-------+ +---+---+---+ +-------+ +---+---+---+ | Given | 03/18/20 | | | | | | 12 8:48 | | | | | | AM PST | | | | +-------+ +---+---+---+ +---+---+ | | | +---+---+ + +---------+ +--------+--------+---+ | metroNIDAZOLE (aka FLAGYL) IV | New Bag | 03/17/20 | 500 mg | mL/hr | | | 500 mg 500 mg, intravenous, | | 12 5:07 | | | | | EVERY 8 HOURS, First dose on [place] | | PM PST | | | | | 03/16/12 at 1600, Until | | | | | | | Discontinued | | | | | | + +---------+ +--------+--------+---+ +---------+ +--------+--------+---+ | New Bag | 03/17/20 | 500 mg | mL/hr | | | | 12 2:10 | | | | | | AM PST | | | | +---------+ +--------+--------+---+ | New Bag | 03/16/20 | 500 mg | mL/hr | | | | 12 6:27 | | | | | | PM PST | | | | +---------+ +--------+--------+---+ +---+---+ | | | +---+---+ + +-------+ +--------+---+---+ | metroNIDAZOLE (aka FLAGYL) | Given | 03/16/20 | 500 mg | | | | tablet 500 mg 500 mg, oral, | | 12 9:34 | | | | | THREE TIMES DAILY, First dose on | | AM PST | | | | | 03/15/12 at 2200, Until | | | | | | | Discontinued | | | | | | + +-------+ +--------+---+---+ +-------+ +--------+---+---+ | Given | 03/15/20 | 500 mg | | | | | 12 10:09 | | | | | | PM PST | | | | +-------+ +--------+---+---+ +---+---+ | | | +---+---+ + +-------+ +--------+---+---+ | metroNIDAZOLE (aka FLAGYL) | Given | 03/31/20 | 500 mg | | | | tablet 500 mg 500 mg, oral, | | 12 5:11 | | | | | THREE TIMES DAILY WITH MEALS, | | PM PST | | | | | First dose on Tue03/17/12 at | | | | | | | 1800, Until Discontinued | | | | | | + +-------+ +--------+---+---+ +-------+ +--------+---+---+ | Given | 03/31/20 | 500 mg | | | | | 12 11:59 | | | | | | AM PST | | | | +-------+ +--------+---+---+ | Given | 03/31/20 | 500 mg | | | | | 12 6:03 | | | | | | AM PST | | | | +-------+ +--------+---+---+ +---+---+ | | | +---+---+ + +-------+ +---------+---+---+ | morphine (aka MS IR) oral dose | Given | 03/31/20 | 22.5 mg | | | | 22.5 mg 22.5 mg, oral, EVERY 4 | | 12 9:03 | | | | | HOURS NEEDED, Starting [place] | | PM PST | | | | | 03/30/12 at 1056, Until Sun | | | | | | | 04/02/12 at 0016, severe pain | | | | | | + +-------+ +---------+---+---+ +-------+ +---------+---+---+ | Given | 03/31/20 | 22.5 mg | | | | | 12 4:22 | | | | | | PM PST | | | | +-------+ +---------+---+---+ | Given | 03/31/20 | 22.5 mg | | | | | 12 11:59 | | | | | | AM PST | | | | +-------+ +---------+---+---+ +---+---+ | | | +---+---+ + +-------+ +-------+---+---+ | morphine (aka MS IR) tablet 15 | Given | 03/30/20 | 15 mg | | | | mg 15 mg, oral, EVERY 4 HOURS | | 12 8:13 | | | | | NEEDED, Starting 03/19/12 at | | AM PST | | | | | 0712, Until [place] 03/30/12 at 1057, | | | | | | | severe pain | | | | | | + +-------+ +-------+---+---+ +-------+ +-------+---+---+ | Given | 03/30/20 | 15 mg | | | | | 12 4:01 | | | | | | AM PST | | | | +-------+ +-------+---+---+ | Given | 03/29/20 | 15 mg | | | | | 12 8:42 | | | | | | PM PST | | | | +-------+ +-------+---+---+ +---+---+ | | | +---+---+ + +---------+ +------+--------+---+ | morphine injection 2-4 mg 2-4 | New Bag | 03/19/20 | 4 mg | mL/hr | | | mg, intravenous, EVERY 4 HOURS | | 12 2:29 | | | | | NEEDED, Starting 12/7/12 at | | AM PST | | | | | 1719, Until 03/19/12 at 0713, | | | | | | | moderate pain | | | | | | + +---------+ +------+--------+---+ +---------+ +------+--------+---+ | New Bag | 03/18/20 | 4 mg | mL/hr | | | | 12 10:25 | | | | | | PM PST | | | | +---------+ +------+--------+---+ | New Bag | 03/18/20 | 4 mg | mL/hr | | | | 12 3:51 | | | | | | PM PST | | | | +---------+ +------+--------+---+ +---+---+ | | | +---+---+ + +---------+ +------+--------+---+ | morphine injection 2-4 mg 2-4 | New Bag | 03/30/20 | 2 mg | mL/hr | | | mg, intravenous, EVERY 4 HOURS | | 12 7:16 | | | | | NEEDED, Starting 03/19/12 at | | AM PST | | | | | 0840, Until [facility] 03/30/12 at 1057, | | | | | | | moderate pain, severe pain | | | | | | + +---------+ +------+--------+---+ +---------+ +------+--------+---+ | New Bag | 03/30/20 | 2 mg | mL/hr | | | | 12 2:35 | | | | | | AM PST | | | | +---------+ +------+--------+---+ | New Bag | 03/29/20 | 2 mg | mL/hr | | | | 12 10:00 | | | | | | PM PST | | | | +---------+ +------+--------+---+ +---+---+ | | | +---+---+ + +---------+ +------+--------+---+ | morphine injection 2-6 mg 2-6 | New Bag | 03/15/20 | 6 mg | mL/hr | | | mg, intravenous, EVERY 2 HOURS | | 12 8:59 | | | | | NEEDED, Starting 03/14/12 at | | AM PST | | | | | 1839, Until 03/15/12 at 1019, | | | | | | | moderate pain | | | | | | + +---------+ +------+--------+---+ +---------+ +------+--------+---+ | New Bag | 03/15/20 | 6 mg | mL/hr | | | | 12 4:19 | | | | | | AM PST | | | | +---------+ +------+--------+---+ | New Bag | 03/15/20 | 6 mg | mL/hr | | | | 12 2:10 | | | | | | AM PST | | | | +---------+ +------+--------+---+ +---+---+ | | | +---+---+ + +---------+ +------+--------+---+ | morphine injection 4-8 mg 4-8 | New Bag | 03/14/20 | 8 mg | mL/hr | | | mg, intravenous, EVERY 2 HOURS | | 12 3:30 | | | | | NEEDED, Starting 03/13/12 at | | PM PST | | | | | 0335, Until Tue03/14/12 at 1843, | | | | | | | moderate pain | | | | | | + +---------+ +------+--------+---+ +---------+ +------+--------+---+ | New Bag | 03/14/20 | 8 mg | mL/hr | | | | 12 10:38 | | | | | | AM PST | | | | +---------+ +------+--------+---+ | New Bag | 03/14/20 | 8 mg | mL/hr | | | | 12 5:45 | | | | | | AM PST | | | | +---------+ +------+--------+---+ +---+---+ | | | +---+---+ + +---------+ + +--------+---+ | NaCl 0.9 % IV bolus 1,000 mL | New Bag | 04/01/20 | 1,000 mL | mL/hr | | | 1,000 mL, intravenous, ONCE, 1 | | 12 12:46 | | | | | dose, 04/01/12 at 1230 | | PM PST | | | | + +---------+ + +--------+---+ +---+---+ | | | +---+---+ + +-------+ +---+---+---+ | nystatin (aka MYCOSTATIN) cream | Given | 04/01/20 | | | | | topical, TWICE DAILY, First | | 12 10:50 | | | | | dose on Tue03/14/12 at 2100, | | AM PST | | | | | Until Discontinued | | | | | | + +-------+ +---+---+---+ +-------+ +---+---+---+ | Given | 03/31/20 | | | | | | 12 9:02 | | | | | | PM PST | | | | +-------+ +---+---+---+ | Given | 03/31/20 | | | | | | 12 9:43 | | | | | | AM PST | | | | +-------+ +---+---+---+ +---+---+ | | | +---+---+ + +-------+ +-------+---+---+ | omeprazole (aka PRILOSEC) | Given | 03/28/20 | 40 mg | | | | capsule 40 mg 40 mg, oral, TWICE | | 12 9:00 | | | | | DAILY, First dose on Tue03/14/12 | | AM PST | | | | | at 2100, Until Discontinued | | | | | | + +-------+ +-------+---+---+ +-------+ +-------+---+---+ | Given | 03/27/20 | 40 mg | | | | | 12 8:30 | | | | | | PM PST | | | | +-------+ +-------+---+---+ | Given | 03/27/20 | 40 mg | | | | | 12 8:30 | | | | | | AM PST | | | | +-------+ +-------+---+---+ +---+---+ | | | +---+---+ + +-------+ +-------+---+---+ | omeprazole (aka PRILOSEC) | Given | 04/01/20 | 40 mg | | | | capsule 40 mg 40 mg, oral, TWICE | | 12 10:49 | | | | | DAILY, First dose on Tue | | AM PST | | | | | 03/31/12 at 1345, Until | | | | | | | Discontinued | | | | | | + +-------+ +-------+---+---+ +-------+ +-------+---+---+ | Given | 03/31/20 | 40 mg | | | | | 12 9:02 | | | | | | PM PST | | | | +-------+ +-------+---+---+ | Given | 03/31/20 | 40 mg | | | | | 12 3:06 | | | | | | PM PST | | | | +-------+ +-------+---+---+ +---+---+ | | | +---+---+ + +---------+ +------+--------+---+ | ondansetron (aka ZOFRAN) | New Bag | 03/15/20 | 4 mg | mL/hr | | | injection 4 mg 4 mg, | | 12 8:59 | | | | | intravenous, EVERY 12 HOURS | | AM PST | | | | | NEEDED, Starting 03/12/12 at | | | | | | | 2019, Until 03/19/12 at 0713, | | | | | | | nausea/vomiting | | | | | | + +---------+ +------+--------+---+ +---------+ +------+--------+---+ | New Bag | 03/13/20 | 4 mg | mL/hr | | | | 12 5:32 | | | | | | PM PST | | | | +---------+ +------+--------+---+ | New Bag | 03/12/20 | 4 mg | mL/hr | | | | 12 11:53 | | | | | | PM PST | | | | +---------+ +------+--------+---+ +---+---+ | | | +---+---+ + +-------+ +-------+---+---+ | oxyCODONE (immediate release) | Given | 03/19/20 | 15 mg | | | | (aka ROXICODONE) liquid 7.5-15 mg | | 12 1:28 | | | | | 7.5-15 mg, oral, EVERY 6 HOURS | | AM PST | | | | | NEEDED, Starting 03/15/12 | | | | | | | at 1044, Until 03/19/12 at | | | | | | | 0754, severe pain | | | | | | + +-------+ +-------+---+---+ +-------+ +-------+---+---+ | Given | 03/18/20 | 15 mg | | | | | 12 1:49 | | | | | | PM PST | | | | +-------+ +-------+---+---+ | Given | 03/18/20 | 15 mg | | | | | 12 3:32 | | | | | | AM PST | | | | +-------+ +-------+---+---+ +---+---+ | | | +---+---+ + +-------+ +-------+---+---+ | oxyCODONE (immediate release) | Given | 03/27/20 | 10 mg | | | | (aka ROXICODONE) liquid 7.5-15 mg | | 12 11:35 | | | | | 7.5-15 mg, oral, EVERY 6 HOURS | | PM PST | | | | | NEEDED, Starting 03/19/12 | | | | | | | at 0753, Until 03/28/12 at | | | | | | | 0534, moderate pain | | | | | | + +-------+ +-------+---+---+ +-------+ +-------+---+---+ | Given | 03/19/20 | 15 mg | | | | | 12 5:07 | | | | | | PM PST | | | | +-------+ +-------+---+---+ +---+---+ | | | +---+---+ + +-------+ + +---+---+ | peg-electrolyte (aka GOLYTELY) | Given | 03/28/20 | 4,000 mL | | | | liquid 4,000 mL 4,000 mL, oral, | | 12 10:59 | | | | | ONCE, 1 dose, 03/28/12 at | | PM PST | | | | | 2245 | | | | | | + +-------+ + +---+---+ +---+---+ | | | +---+---+ + +-------+ +------+---+---+ | phytonadione (aka VITAMIN K, | Given | 03/27/20 | 5 mg | | | | MEPHYTON) tablet 5 mg 5 mg, | | 12 11:34 | | | | | oral, ONCE, 1 dose, 03/27/12 | | PM PST | | | | | at 2045 | | | | | | + +-------+ +------+---+---+ +---+---+ | | | +---+---+ + +---------+ +---------+--------+---+ | piperacillin-tazobactam (aka | New Bag | 03/15/20 | 3.375 g | mL/hr | | | ZOSYN) IV 3.375 g 3.375 g, | | 12 4:34 | | | | | intravenous, EVERY 6 HOURS, First | | PM PST | | | | | dose on 03/13/12 at 1600, | | | | | | | Until Discontinued | | | | | | + +---------+ +---------+--------+---+ +---------+ +---------+--------+---+ | New Bag | 03/15/20 | 3.375 g | mL/hr | | | | 12 9:09 | | | | | | AM PST | | | | +---------+ +---------+--------+---+ | New Bag | 03/15/20 | 3.375 g | mL/hr | | | | 12 4:33 | | | | | | AM PST | | | | +---------+ +---------+--------+---+ +---+---+ | | | +---+---+ + +-------+ +--------+---+---+ | potassium & sodium phosphates | Given | 04/01/20 | 500 mg | | | | (aka K PHOS NEUTRAL) tablet 500 | | 12 10:49 | | | | | mg 500 mg, oral, TWICE DAILY, | | AM PST | | | | | First dose on 03/25/12 at | | | | | | | 0945, Until Discontinued | | | | | | + +-------+ +--------+---+---+ +-------+ +--------+---+---+ | Given | 03/31/20 | 500 mg | | | | | 12 9:02 | | | | | | PM PST | | | | +-------+ +--------+---+---+ | Given | 03/31/20 | 500 mg | | | | | 12 9:41 | | | | | | AM PST | | | | +-------+ +--------+---+---+ +---+---+ | | | +---+---+ + +-------+ + +---+---+ | potassium & sodium phosphates | Given | 03/20/20 | 1 packet | | | | (aka NEUTRA-PHOS, PHOS-NAK) | | 12 5:36 | | | | | 280-160-250 mg packet 1 Packet 1 | | PM PST | | | | | packet, oral, FOUR TIMES DAILY, | | | | | | | 4 doses, First dose on Mon | | | | | | | 03/20/12 at 1245, Last dose on | | | | | | | 03/21/12 at 0900 | | | | | | + +-------+ + +---+---+ +-------+ + +---+---+ | Given | 03/20/20 | 1 packet | | | | | 12 3:21 | | | | | | PM PST | | | | +-------+ + +---+---+ +---+---+ | | | +---+---+ + +-------+ +--------+---+---+ | potassium chloride (aka | Given | 03/19/20 | 20 mEq | | | | DAYANAOR-CON) packet 20 mEq 20 mEq, | | 12 5:07 | | | | | oral, ONCE, 1 dose, 03/19/12 | | PM PST | | | | | at 1630 | | | | | | + +-------+ +--------+---+---+ +---+---+ | | | +---+---+ + +-------+ +--------+---+---+ | potassium chloride (aka | Given | 03/25/20 | 20 mEq | | | | KLOR-CON) packet 20 mEq 20 mEq, | | 12 10:19 | | | | | oral, ONCE, 1 dose, [facility] 03/25/12 | | AM PST | | | | | at 1015 | | | | | | + +-------+ +--------+---+---+ +---+---+ | | | +---+---+ + +-------+ +--------+---+---+ | potassium chloride (aka | Given | 03/30/20 | 20 mEq | | | | KLOR-CON) packet 20 mEq 20 mEq, | | 12 12:07 | | | | | oral, ONCE, 1 dose, [facility] 03/30/12 | | PM PST | | | | | at 1100 | | | | | | + +-------+ +--------+---+---+ +---+---+ | | | +---+---+ + +-------+ +--------+---+---+ | potassium chloride (aka | Given | 03/17/20 | 40 mEq | | | | KLOR-CON) packet 40 mEq 40 mEq, | | 12 6:23 | | | | | oral, ONCE, 1 dose, [facility] 03/17/12 | | PM PST | | | | | at 1600 | | | | | | + +-------+ +--------+---+---+ +---+---+ | | | +---+---+ + +-------+ +--------+---+---+ | potassium chloride (aka | Given | 03/19/20 | 40 mEq | | | | KLOR-CON) packet 40 mEq 40 mEq, | | 12 3:14 | | | | | oral, ONCE, 1 dose, 03/19/12 | | PM PST | | | | | at 1430 | | | | | | + +-------+ +--------+---+---+ +---+---+ | | | +---+---+ + +-------+ +--------+---+---+ | potassium chloride (aka | Given | 03/26/20 | 40 mEq | | | | KLOR-CON) packet 40 mEq 40 mEq, | | 12 12:06 | | | | | oral, ONCE, 1 dose, 03/26/12 | | PM PST | | | | | at 1000 | | | | | | + +-------+ +--------+---+---+ +---+---+ | | | +---+---+ + +---------+ +--------+--------+---+ | potassium chloride IV 40 mEq | New Bag | 03/12/20 | 40 mEq | mL/hr | | | 40 mEq, intravenous, ONCE, 1 | | 12 8:32 | | | | | dose, 03/12/12 at 2100 | | PM PST | | | | + +---------+ +--------+--------+---+ +---+---+ | | | +---+---+ + +---------+ +--------+--------+---+ | potassium chloride IV 40 mEq | New Bag | 03/17/20 | 40 mEq | mL/hr | | | 40 mEq, intravenous, ONCE, 1 | | 12 7:07 | | | | | dose, 03/17/12 at 1630 | | PM PST | | | | + +---------+ +--------+--------+---+ +---+---+ | | | +---+---+ + +---------+ +--------+--------+---+ | potassium chloride IV 40 mEq | New Bag | 03/21/20 | 40 mEq | mL/hr | | | 40 mEq, intravenous, EVERY 4 | | 12 4:03 | | | | | HOURS, 2 doses, First dose on Tue | | PM PST | | | | | 03/21/12 at 1300, Last dose on | | | | | | | 03/21/12 at 1600 | | | | | | + +---------+ +--------+--------+---+ +---+---+ | | | +---+---+ + +---------+ +--------+--------+---+ | potassium chloride IV 40 mEq | New Bag | 03/22/20 | 40 mEq | mL/hr | | | 40 mEq, intravenous, ONCE, 1 | | 12 1:32 | | | | | dose, Tue03/22/12 at 0045 | | AM PST | | | | + +---------+ +--------+--------+---+ +---+---+ | | | +---+---+ + +---------+ +--------+--------+---+ | potassium chloride IV 40 mEq | New Bag | 03/22/20 | 40 mEq | mL/hr | | | 40 mEq, intravenous, ONCE, 1 | | 12 8:46 | | | | | dose, Tue03/22/12 at 1930 | | PM PST | | | | + +---------+ +--------+--------+---+ +---+---+ | | | +---+---+ + +---------+ +--------+--------+---+ | potassium chloride IV 40 mEq | New Bag | 03/25/20 | 40 mEq | mL/hr | | | 40 mEq, intravenous, ONCE, 1 | | 12 12:06 | | | | | dose, 03/25/12 at 1100 | | PM PST | | | | + +---------+ +--------+--------+---+ +---+---+ | | | +---+---+ + +---------+ +--------+--------+---+ | potassium chloride IV 40 mEq | New Bag | 03/26/20 | 40 mEq | mL/hr | | | 40 mEq, intravenous, ONCE, 1 | | 12 11:41 | | | | | dose, 03/26/12 at 1100 | | AM PST | | | | + +---------+ +--------+--------+---+ +---+---+ | | | +---+---+ + +---------+ +--------+--------+---+ | potassium chloride IV 40 mEq | New Bag | 03/27/20 | 40 mEq | mL/hr | | | 40 mEq, intravenous, ONCE, 1 | | 12 8:29 | | | | | dose, 03/27/12 at 1500 | | PM PST | | | | + +---------+ +--------+--------+---+ +---+---+ | | | +---+---+ + +---------+ +--------+--------+---+ | potassium chloride IV 40 mEq | New Bag | 03/29/20 | 40 mEq | mL/hr | | | 40 mEq, intravenous, ONCE, 1 | | 12 8:39 | | | | | dose, 03/29/12 at 0845 | | AM PST | | | | + +---------+ +--------+--------+---+ +---+---+ | | | +---+---+ + +---------+ +---------+--------+---+ | potassium phosphate IV 30 mmol | New Bag | 03/13/20 | 30 mmol | mL/hr | | | 30 mmol, intravenous, ONCE, 1 | | 12 6:11 | | | | | dose, 03/13/12 at 0600 | | AM PST | | | | + +---------+ +---------+--------+---+ +---+---+ | | | +---+---+ + +-------+ +---------+---+---+ | predniSONE (aka DELTASONE) 12.5 | Given | 03/26/20 | 12.5 mg | | | | mg 12.5 mg, oral, DAILY, 3 | | 12 9:28 | | | | | doses, First dose (after last | | AM PST | | | | | modification) on Tue03/24/12 at | | | | | | | 1500, Last dose on 03/26/12 | | | | | | | at 0900 | | | | | | + +-------+ +---------+---+---+ +-------+ +---------+---+---+ | Given | 03/25/20 | 12.5 mg | | | | | 12 9:50 | | | | | | AM PST | | | | +-------+ +---------+---+---+ | Given | 03/24/20 | 12.5 mg | | | | | 12 2:57 | | | | | | PM PST | | | | +-------+ +---------+---+---+ +---+---+ | | | +---+---+ + +-------+ +-------+---+---+ | predniSONE (aka DELTASONE) | Given | 03/29/20 | 10 mg | | | | tablet 10 mg 10 mg, oral, DAILY, | | 12 8:36 | | | | | 3 doses, First dose on Mon | | AM PST | | | | | 03/27/12 at 0900, Last dose on | | | | | | | 03/29/12 at 0900 | | | | | | + +-------+ +-------+---+---+ +-------+ +-------+---+---+ | Given | 03/28/20 | 10 mg | | | | | 12 8:45 | | | | | | AM PST | | | | +-------+ +-------+---+---+ | Given | 03/27/20 | 10 mg | | | | | 12 8:30 | | | | | | AM PST | | | | +-------+ +-------+---+---+ +---+---+ | | | +---+---+ + +-------+ +---------+---+---+ | predniSONE (aka DELTASONE) | Given | 03/23/20 | 12.5 mg | | | | tablet 12.5 mg 12.5 mg, oral, AT | | 12 10:23 | | | | | BEDTIME, First dose (after last | | PM PST | | | | | modification) on Tue03/22/12 at | | | | | | | 2200, Until Discontinued | | | | | | + +-------+ +---------+---+---+ +-------+ +---------+---+---+ | Given | 03/22/20 | 12.5 mg | | | | | 12 11:02 | | | | | | PM PST | | | | +-------+ +---------+---+---+ +---+---+ | | | +---+---+ + +-------+ +-------+---+---+ | predniSONE (aka DELTASONE) | Given | 20 | 15 mg | | | | tablet 15 mg 15 mg, oral, AT | | 12 11:03 | | | | | BEDTIME, First dose on Mon | | PM PST | | | | | 03/13/12 at 2315, Until | | | | | | | Discontinued | | | | | | + +-------+ +-------+---+---+ +---+---+ | | | +---+---+ + +-------+ +-------+---+---+ | predniSONE (aka DELTASONE) | Given | 03/21/20 | 15 mg | | | | tablet 15 mg 15 mg, oral, AT | | 12 10:43 | | | | | BEDTIME, First dose (after last | | PM PST | | | | | modification) on [place] 03/16/12 at | | | | | | | 2200, Until Discontinued | | | | | | + +-------+ +-------+---+---+ +-------+ +-------+---+---+ | Given | 03/20/20 | 15 mg | | | | | 12 8:39 | | | | | | PM PST | | | | +-------+ +-------+---+---+ | Given | 03/19/20 | 15 mg | | | | | 12 8:36 | | | | | | PM PST | | | | +-------+ +-------+---+---+ +---+---+ | | | +---+---+ + +-------+ +-------+---+---+ | predniSONE (aka DELTASONE) | Given | 03/15/20 | 20 mg | | | | tablet 20 mg 20 mg, oral, AT | | 12 8:36 | | | | | BEDTIME, First dose (after last | | PM PST | | | | | modification) on Tue03/14/12 at | | | | | | | 2200, Until Discontinued | | | | | | + +-------+ +-------+---+---+ +-------+ +-------+---+---+ | Given | 03/14/20 | 20 mg | | | | | 12 9:51 | | | | | | PM PST | | | | +-------+ +-------+---+---+ +---+---+ | | | +---+---+ + +-------+ +--------+---+---+ | predniSONE (aka DELTASONE) | Given | 04/01/20 | 7.5 mg | | | | tablet 7.5 mg 7.5 mg, oral, | | 12 11:33 | | | | | DAILY, 3 doses, First dose on [place] | | AM PST | | | | | 03/30/12 at 0900, Last dose on | | | | | | | 04/01/12 at 0900 | | | | | | + +-------+ +--------+---+---+ +-------+ +--------+---+---+ | Given | 03/31/20 | 7.5 mg | | | | | 12 9:42 | | | | | | AM PST | | | | +-------+ +--------+---+---+ | Given | 03/30/20 | 7.5 mg | | | | | 12 10:53 | | | | | | AM PST | | | | +-------+ +--------+---+---+ +---+---+ | | | +---+---+ + +---------+ +---------+--------+---+ | promethazine (aka PHENERGAN) | New Bag | 03/20/20 | 12.5 mg | mL/hr | | | injection 12.5 mg 12.5 mg, | | 12 3:21 | | | | | intravenous, EVERY 6 HOURS | | PM PST | | | | | NEEDED, Starting Tue03/20/12 at | | | | | | | 1420, Until Tue03/20/12 at 1553, | | | | | | | nausea/vomiting | | | | | | + +---------+ +---------+--------+---+ +---+---+ | | | +---+---+ + +---------+ +-------+--------+---+ | promethazine (aka PHENERGAN) | New Bag | 03/14/20 | 25 mg | mL/hr | | | injection 25 mg 25 mg, | | 12 2:38 | | | | | intravenous, EVERY 6 HOURS | | PM PST | | | | | NEEDED, Starting 03/13/12 at | | | | | | | 0637, Until 03/14/12 at 1555, | | | | | | | nausea/vomiting | | | | | | + +---------+ +-------+--------+---+ +---------+ +-------+--------+---+ | New Bag | 03/14/20 | 25 mg | mL/hr | | | | 12 8:09 | | | | | | AM PST | | | | +---------+ +-------+--------+---+ | New Bag | 03/14/20 | 25 mg | mL/hr | | | | 12 2:21 | | | | | | AM PST | | | | +---------+ +-------+--------+---+ +---+---+ | | | +---+---+ + +---------+ +-------+--------+---+ | promethazine (aka PHENERGAN) | New Bag | 03/19/20 | 25 mg | mL/hr | | | injection 25 mg 25 mg, | | 12 9:20 | | | | | intravenous, EVERY 6 HOURS | | AM PST | | | | | NEEDED, Starting 03/19/12 at | | | | | | | 0823, Until 03/19/12 at 1315, | | | | | | | nausea/vomiting | | | | | | + +---------+ +-------+--------+---+ +---+---+ | | | +---+---+ + +---------+ +-------+--------+---+ | promethazine (aka PHENERGAN) | New Bag | 03/21/20 | 25 mg | mL/hr | | | injection 25 mg 25 mg, | | 12 8:50 | | | | | intravenous, EVERY 6 HOURS | | AM PST | | | | | NEEDED, Starting 03/20/12 at | | | | | | | 1552, Until Tu03/21/12 at 1435, | | | | | | | nausea/vomiting, Please give 30 | | | | | | | mins prior to dose of flagyl | | | | | | + +---------+ +-------+--------+---+ +---------+ +---------+-------+---+ | New Bag | 03/20/20 | 12.5 mg | 12.5 | | | | 12 4:59 | | mL/hr | | | | PM PST | | | | +---------+ +---------+-------+---+ +---+---+ | | | +---+---+ + +---------+ +-------+--------+---+ | promethazine (aka PHENERGAN) | New Bag | 03/21/20 | 25 mg | mL/hr | | | injection 25 mg 25 mg, | | 12 3:16 | | | | | intravenous, EVERY 6 HOURS, First | | PM PST | | | | | dose (after last modification) | | | | | | | on Tue03/21/12 at 1600, Until | | | | | | | Discontinued | | | | | | + +---------+ +-------+--------+---+ +---+---+ | | | +---+---+ + +---------+ +-------+--------+---+ | promethazine (aka PHENERGAN) | New Bag | 04/01/20 | 25 mg | mL/hr | | | injection 25 mg 25 mg, | | 12 6:10 | | | | | intravenous, EVERY 6 HOURS, First | | AM PST | | | | | dose (after last modification) | | | | | | | on Tue03/21/12 at 2200, Until | | | | | | | Discontinued | | | | | | + +---------+ +-------+--------+---+ +---------+ +-------+--------+---+ | New Bag | 04/01/20 | 25 mg | mL/hr | | | | 12 1:58 | | | | | | AM PST | | | | +---------+ +-------+--------+---+ | New Bag | 03/31/20 | 25 mg | mL/hr | | | | 12 5:11 | | | | | | PM PST | | | | +---------+ +-------+--------+---+ +---+---+ | | | +---+---+ + +---------+ +-------+--------+---+ | promethazine (aka PHENERGAN) | New Bag | 03/16/20 | 50 mg | mL/hr | | | injection 50 mg 50 mg, | | 12 4:00 | | | | | intravenous, EVERY 6 HOURS | | AM PST | | | | | NEEDED, Starting 03/14/12 at | | | | | | | 1851, Until [place] 03/16/12 at 0810, | | | | | | | nausea/vomiting | | | | | | + +---------+ +-------+--------+---+ +---------+ +-------+--------+---+ | New Bag | 03/15/20 | 50 mg | mL/hr | | | | 12 10:10 | | | | | | PM PST | | | | +---------+ +-------+--------+---+ | New Bag | 03/15/20 | 50 mg | mL/hr | | | | 12 4:30 | | | | | | PM PST | | | | +---------+ +-------+--------+---+ +---+---+ | | | +---+---+ + +---------+ +-------+--------+---+ | promethazine (aka PHENERGAN) | New Bag | 03/18/20 | 50 mg | mL/hr | | | injection 50 mg 50 mg, | | 12 10:30 | | | | | intravenous, EVERY 4 HOURS | | PM PST | | | | | NEEDED, Starting [facility] 03/16/12 at | | | | | | | 0815, Until 03/19/12 at 0713, | | | | | | | nausea/vomiting | | | | | | + +---------+ +-------+--------+---+ +---------+ +-------+--------+---+ | New Bag | 03/18/20 | 50 mg | mL/hr | | | | 12 6:29 | | | | | | PM PST | | | | +---------+ +-------+--------+---+ | New Bag | 03/18/20 | 50 mg | mL/hr | | | | 12 12:35 | | | | | | PM PST | | | | +---------+ +-------+--------+---+ +---+---+ | | | +---+---+ + +---------+ +-------+--------+---+ | promethazine (aka PHENERGAN) | New Bag | 04/01/20 | 50 mg | mL/hr | | | injection 50 mg 50 mg, | | 12 11:30 | | | | | intravenous, ONCE, 1 dose, Sat | | AM PST | | | | | 04/01/12 at 1115 | | | | | | + +---------+ +-------+--------+---+ +---+---+ | | | +---+---+ + +---------+ +-------+--------+---+ | promethazine (aka PHENERGAN) | New Bag | 04/01/20 | 50 mg | mL/hr | | | injection 50 mg 50 mg, | | 12 3:37 | | | | | intravenous, ONCE, 1 dose, Sat | | PM PST | | | | | 04/01/12 at 1530 | | | | | | + +---------+ +-------+--------+---+ +---+---+ | | | +---+---+ + +---------+ +---------+--------+---+ | promethazine (aka PHENERGAN) | New Bag | 03/13/20 | 6.25 mg | mL/hr | | | injection 6.25 mg 6.25 mg, | | 12 2:01 | | | | | intravenous, EVERY 6 HOURS | | AM PST | | | | | NEEDED, Starting 03/12/12 at | | | | | | | 1952, Until 03/13/12 at 0640, | | | | | | | nausea/vomiting | | | | | | + +---------+ +---------+--------+---+ +---------+ +---------+--------+---+ | New Bag | 03/12/20 | 6.25 mg | mL/hr | | | | 12 8:20 | | | | | | PM PST | | | | +---------+ +---------+--------+---+ +---+---+ | | | +---+---+ + +-------+ +---------+---+---+ | promethazine (aka PHENERGAN) | Given | 03/19/20 | 12.5 mg | | | | tablet 12.5 mg 12.5 mg, oral, | | 12 7:56 | | | | | EVERY 6 HOURS NEEDED, Starting | | AM PST | | | | | 03/19/12 at 0709, Until Sun | | | | | | | 03/19/12 at 1315, nausea/vomiting | | | | | | + +-------+ +---------+---+---+ +---+---+ | | | +---+---+ + +-------+ +-------+---+---+ | promethazine (aka PHENERGAN) | Given | 03/20/20 | 25 mg | | | | tablet 25 mg 25 mg, oral, EVERY | | 12 9:38 | | | | | 6 HOURS, First dose (after last | | AM PST | | | | | modification) on 03/19/12 at | | | | | | | 1600, Until Discontinued | | | | | | + +-------+ +-------+---+---+ +-------+ +-------+---+---+ | Given | 03/20/20 | 25 mg | | | | | 12 4:31 | | | | | | AM PST | | | | +-------+ +-------+---+---+ | Given | 03/19/20 | 25 mg | | | | | 12 8:36 | | | | | | PM PST | | | | +-------+ +-------+---+---+ +---+---+ | | | +---+---+ + +---------+ +--------+--------+---+ | propofol (aka DIPRIVAN) | New Bag | 03/29/20 | 240 mg | mL/hr | | | injection 240 mg 240 mg, | | 12 12:24 | | | | | intravenous, ONCE, 1 dose, Wed | | PM PST | | | | | 03/29/12 at 1400 | | | | | | + +---------+ +--------+--------+---+ + +---+ | | | + +---+ | propofol (jenifer DIPRIVAN) | | | injection 1 dose, Starting Wed | | | 03/29/12 at 1112, Until Wed | | | 03/29/12 at 1224 | | + +---+ | | | + +---+ + +---------+ +---------+--------+---+ | sodium phosphate IV 15 mmol 15 | New Bag | 03/28/20 | 15 mmol | mL/hr | | | mmol, intravenous, ONCE, 1 dose, | | 12 7:31 | | | | | 03/28/12 at 0700 | | AM PST | | | | + +---------+ +---------+--------+---+ +---+---+ | | | +---+---+ + +---------+ +---------+--------+---+ | sodium phosphate IV 15 mmol 15 | New Bag | 03/28/20 | 15 mmol | mL/hr | | | mmol, intravenous, ONCE, 1 dose, | | 12 6:56 | | | | | 03/28/12 at 1900 | | PM PST | | | | + +---------+ +---------+--------+---+ +---+---+ | | | +---+---+ + +-------+ +-------+---+---+ | traZODone (aka DESYREL) tablet | Given | 03/30/20 | 50 mg | | | | 50 mg 50 mg, oral, AT BEDTIME, | | 12 10:30 | | | | | First dose on [facility] 03/30/12 at | | PM PST | | | | | 2215, Until Discontinued | | | | | | + +-------+ +-------+---+---+ +---+---+ | | | +---+---+ + +-------+ +-------+---+---+ | traZODone (aka DESYREL) tablet | Given | 03/30/20 | 50 mg | | | | 50 mg 50 mg, oral, ONCE, 1 dose, | | 12 10:58 | | | | | [place] 03/30/12 at 2300 | | PM PST | | | | + +-------+ +-------+---+---+ +---+---+ | | | +---+---+ + +-------+ +-------+---+---+ | traZODone (aka DESYREL) tablet | Given | 03/31/20 | 50 mg | | | | 50 mg 50 mg, oral, ONCE, 1 dose, | | 12 9:02 | | | | | 03/31/12 at 2045 | | PM PST | | | | + +-------+ +-------+---+---+ +---+---+ | | | +---+---+ + +-------+ +-------+---+---+ | traZODone (aka DESYREL) tablet | Given | 03/25/20 | 50 mg | | | | 50-100 mg 50-100 mg, oral, ONCE, | | 12 1:01 | | | | | 1 dose, 03/25/12 at 0100 | | AM PST | | | | + +-------+ +-------+---+---+ +---+---+ | | | +---+---+ + +-------+ +---------+---+--------+ | tuberculin (aka TUBERSOL, | Given | 03/29/20 | 5 Units | | Right | | APISOL) injection 5 Units 5 | | 12 8:47 | | | Arm | | Units, intradermal, ONCE, 1 dose, | | PM PST | | | | | 03/29/12 at 1700 | | | | | | + +-------+ +---------+---+--------+ +---+---+ | | | +---+---+ + +---------+ +-----+--------+---+ | vancomycin (aka VANCOCIN) IV 1 | New Bag | 03/20/20 | 1 g | mL/hr | | | g 1 g, intravenous, EVERY 12 | | 12 11:35 | | | | | HOURS, First dose on 03/19/12 | | AM PST | | | | | at 2100, Until Discontinued | | | | | | + +---------+ +-----+--------+---+ +---------+ +-----+--------+---+ | New Bag | 03/19/20 | 1 g | mL/hr | | | | 12 11:48 | | | | | | PM PST | | | | +---------+ +-----+--------+---+ +---+---+ | | | +---+---+ + +---------+ +--------+--------+---+ | vancomycin (aka VANCOCIN) IV | New Bag | 03/27/20 | 1.25 g | mL/hr | | | 1.25 g 1.25 g, intravenous, | | 12 12:11 | | | | | EVERY 12 HOURS, First dose on Wed | | PM PST | | | | | 03/22/12 at 0000, Until | | | | | | | Discontinued | | | | | | + +---------+ +--------+--------+---+ +---------+ +--------+--------+---+ | New Bag | 03/27/20 | 1.25 g | mL/hr | | | | 12 1:36 | | | | | | AM PST | | | | +---------+ +--------+--------+---+ | New Bag | 03/26/20 | 1.25 g | mL/hr | | | | 12 1:07 | | | | | | PM PST | | | | +---------+ +--------+--------+---+ +---+---+ | | | +---+---+ + +---------+ +-----+--------+---+ | vancomycin (aka VANCOCIN) IV 2 | New Bag | 03/21/20 | 2 g | mL/hr | | | g 2 g, intravenous, ONCE, 1 | | 12 12:20 | | | | | dose, 03/21/12 at 1200 | | PM PST | | | | + +---------+ +-----+--------+---+ +---+---+ | | | +---+---+ + +-------+ +--------+---+---+ | vancomycin 50 mg/mL oral | Given | 03/13/20 | 125 mg | | | | solution 125 mg 125 mg, oral, | | 12 4:34 | | | | | FOUR TIMES DAILY, 40 doses, First | | AM PST | | | | | dose on Tue03/12/12 at 2200, | | | | | | | Last dose on Tue03/22/12 at 1600 | | | | | | + +-------+ +--------+---+---+ +-------+ +--------+---+---+ | Given | 03/12/20 | 125 mg | | | | | 12 10:02 | | | | | | PM PST | | | | +-------+ +--------+---+---+ +---+---+ | | | +---+---+ + +-------+ +------+---+---+ | warfarin (aka COUMADIN) tablet | Given | 03/22/20 | 1 mg | | | | 1 mg 1 mg, oral, EVERY EVENING, | | 12 9:10 | | | | | First dose (after last | | PM PST | | | | | modification) on Tue03/22/12 at | | | | | | | 2100, Until Discontinued | | | | | | + +-------+ +------+---+---+ +---+---+ | | | +---+---+ + +-------+ +--------+---+---+ | warfarin (aka COUMADIN) tablet | Given | 03/20/20 | 2.5 mg | | | | 2.5 mg 2.5 mg, oral, EVERY | | 12 8:13 | | | | | EVENING, First dose (after last | | PM PST | | | | | modification) on Tue03/20/12 at | | | | | | | 2100, Until Discontinued | | | | | | + +-------+ +--------+---+---+ +---+---+ | | | +---+---+ + +-------+ +--------+---+---+ | warfarin (aka COUMADIN) tablet | Given | 03/25/20 | 2.5 mg | | | | 2.5 mg 2.5 mg, oral, EVERY | | 12 8:22 | | | | | EVENING, First dose (after last | | PM PST | | | | | modification) on [facility] 03/23/12 at | | | | | | | 2100, Until Discontinued | | | | | | + +-------+ +--------+---+---+ +-------+ +--------+---+---+ | Given | 03/24/20 | 2.5 mg | | | | | 12 9:18 | | | | | | PM PST | | | | +-------+ +--------+---+---+ | Given | 03/23/20 | 2.5 mg | | | | | 12 8:24 | | | | | | PM PST | | | | +-------+ +--------+---+---+ +---+---+ | | | +---+---+ + +-------+ +------+---+---+ | warfarin (aka COUMADIN) tablet | Given | 03/26/20 | 4 mg | | | | 4 mg 4 mg, oral, EVERY EVENING, | | 12 8:41 | | | | | First dose (after last | | PM PST | | | | | modification) on 03/26/12 at | | | | | | | 2100, Until Discontinued | | | | | | + +-------+ +------+---+---+ +---+---+ | | | +---+---+ + +-------+ +------+---+---+ | warfarin (aka COUMADIN) tablet | Given | 03/19/20 | 5 mg | | | | 5 mg 5 mg, oral, EVERY EVENING, | | 12 8:36 | | | | | First dose (after last | | PM PST | | | | | modification) on 03/18/12 at | | | | | | | 2100, Until Discontinued | | | | | | + +-------+ +------+---+---+ +-------+ +------+---+---+ | Given | 03/18/20 | 5 mg | | | | | 12 9:55 | | | | | | PM PST | | | | +-------+ +------+---+---+ +---+---+ | | | +---+---+ + +-------+ +------+---+---+ | warfarin (aka COUMADIN) tablet | Given | 03/21/20 | 5 mg | | | | 5 mg 5 mg, oral, EVERY EVENING, | | 12 8:19 | | | | | First dose (after last | | PM PST | | | | | modification) on Tue03/21/12 at | | | | | | | 2100, Until Discontinued | | | | | | + +-------+ +------+---+---+ +---+---+ | | | +---+---+ + +-------+ +------+---+---+ | warfarin (aka COUMADIN) tablet | Given | 03/31/20 | 5 mg | | | | 5 mg 5 mg, oral, EVERY EVENING, | | 12 9:03 | | | | | First dose on Tue03/30/12 at | | PM PST | | | | | 2100, Until Discontinued | | | | | | + +-------+ +------+---+---+ +-------+ +------+---+---+ | Given | 03/30/20 | 5 mg | | | | | 12 8:37 | | | | | | PM PST | | | | +-------+ +------+---+---+ +---+---+ | | | +---+---+ + +-------+ +------+---+---+ | warfarin (aka COUMADIN) tablet | Given | 03/15/20 | 6 mg | | | | 6 mg 6 mg, oral, EVERY EVENING, | | 12 8:37 | | | | | First dose on Tue03/15/12 at | | PM PST | | | | | 2100, Until Discontinued | | | | | | + +-------+ +------+---+---+ +---+---+ | | | +---+---+ + +-------+ +------+---+---+ | warfarin (aka COUMADIN) tablet | Given | 03/17/20 | 6 mg | | | | 6 mg 6 mg, oral, EVERY EVENING, | | 12 11:07 | | | | | First dose on Tue03/17/12 at | | PM PST | | | | | 2230, Until Discontinued | | | | | | + +-------+ +------+---+---+ +---+---+ | | | +---+---+ documented in this encounter
--- OUTSIDE RECORDS SUMMARY | ~2019-02-11 | XMS | Encounter Summary ---
Demographics + + + | Address | [address] | | | [place] [address] | + + + | Home Phone | | + + + | Preferred Language | Unknown | + + + | Marital Status | | + + + | Christian Affiliation | NRP | + + + | Race | White | + + + | Ethnic Group | Not or | + + + Author + + + | Author | [facility] | + + + | Organization | [facility] | + + + | Address | Unknown | + + + | Phone | Unavailable | + + + Support + + + + + | Name | Relationship | Address | Phone | + + + + + | Kole Willingham | [place] | [address] | | | | | [place], [place] | | | | | [address] | | + + + + + | Cami Sawyer | ECON | Unknown | | + + + + + Care Team Providers + +------+ + | Care Shipping And Receiving Supervisor Name | Role | Phone | + +------+ + | Aren Rose DO | PCP | | + +------+ + Reason for Visit + + + | Reason | Comments | + + + | New patient | | | consultation | | + + + | Enterovesical | | | fistula | | + + + | RVF - Rectovaginal | | | fistula | | + + + Consultation (Routine) +--------+--------+ + + + + | Status | Reason | Specialty | Diagnoses / | Referred By | Referred To | | | | | Procedures | Contact | Contact | +--------+--------+ + + + + | Closed | | Surgery | Diagnoses | Dena, | Trice Marie, | | | | | Crohn's | Neel Vega MD | [address] | | | | | disease of | [facility] | [address] | | | | | both small | [facility] | [facility] | | | | | and large | [facility] | [place], [place] | | | | | intestine | [address] | [address] | | | | | without | 2ND | Phone: | | | | | complication | [place], | [phone] | | | | | s | [place] [address] | Fax: | | | | | | Phone: | [phone] | | | | | | [phone] | | | | | | | Fax: | | | | | | | [phone] | | +--------+--------+ + + + + Encounter Details +--------+---------+ + + + | Date | Type | Department | Care Team | Description | +--------+---------+ + + + | 07/27/ | Office | Digestive Health | Trice Marie MD | Rectovaginal fistula | | 2016 | Visit | Center at [facility] [address] | [address] | (Primary Dx); | | | | [address] | [address] [place], | Crohn's disease of | | | | Mailcode: [place] | [place] [address] | both small and large | | | | for Health and | [phone] | intestine with | | | | Healing, Building [address] | | complication (HCC) | | | | [place], [place] | | | | | | [address] | | | | | | [phone] | | | +--------+---------+ + + + Social History + +-------+ [...] + + + documented in this encounter Patient Instructions Patient Instructions Trice Marie MD - 07/28/2015 3:56 PM PDTWait 8 weeks. Get repeat flex sig. If no proctitis, then will schedule outpatient rectovaginal fistula repair, possible anal sphincter. documented in this encounter Progress Notes Jaron Muñiz MA - 07/28/2015 3:39 PM PDTAssisted provider with set up and minor procedur e of: Anoscopy Trice Lundberg MD - 07/28/2015 1:32 PM PDT COLON AND RECTAL SURGERY History and Physical New Patient Assessment: 59 y.o. female with htn, COPD, benign esophageal stricture, GERD, back pain, mononeuritis, depression, and anxiety patent foramen ovale with atrial septal aneurysm hypercoagulable, TIA's, peripheral vascular disease complex surgical history for fibroids and vaginal bleeding, CURT/bowel resection (1995) BSO/Cohn/suprapubic tube placement (03/29/2000) packing of abdomen/splenectomy for intra-abdominal bleeding (Apr, 2014) wash out and fascial closure (04/24/14) enterovesical fistula?/UTI's/cystitis colonic Crohn's disease with rectovaginal fistula colonoscopy to cecum with good prep (03/29/12) severe ascending colitis biopsy: extensive acute/chronic inflammation, no granulomas or dysplasia normal random colon biopsy short rectal stricture anal fistula anal nodularity biopsy: chronic inactive proctitis, no granulomas or dysplasia normal capsule endoscopy (05/06/15) normal except for single pinpoint erosion in proximal small bowel no evidence of Crohn's disease colonoscopy (June,) negative per patient CT scan of abdomen/pelvis with IV contrast (07/16/15) diffuse colitis chronic occlusion of celiac trunk small hiatal hernia my exam (07/28/15) Perineum: no external hemorrhoids or fissures Rectal: decreased tone, possible anterior defect 1.5 cm from verge, no masses/abscesses Anoscopy: enlarged anterior anal papilla, no clear opening or inflammation currently on antibiotics and prednisone 15 mg a day no longer takes Remicade not on any other Crohn's medications Plan: Wait 8 weeks. Get repeat flex sig. If no proctitis, then we will schedule outpatient rectovaginal fistula repair, possible allison sphincter repair. Chief Complaint: 59 y.o. female with stool and liquid stool through her vagina. History of Present Illness: Dimple in her vagina seen by her MACHINE REBUILDER ~1995 For fibroids and vaginal bleeding, she underwent CURT/bowel resection (1995). ~2005, she noticed liquid stool come out through her vagina every 3 months. colonoscopy to cecum with good prep (03/29/12) severe ascending colitis biopsy: extensive acute/chronic inflammation, no granulomas or dysplasia normal random colon biopsy short rectal stricture anal fistula anal nodularity biopsy: chronic inactive proctitis, no granulomas or dysplasia normal capsule endoscopy (05/06/15) normal except for single pinpoint erosion in proximal small bowel no evidence of Crohn's disease colonoscopy (June,) negative per patient Every couple weeks, she has a UTI. CT scan of abdomen/pelvis with IV contrast (07/16/15) diffuse colitis chronic occlusion of celiac trunk small hiatal hernia She was started on IV antibiotics/solumedrol. She is currently on antibiotics. She takes prednisone 15 mg a day. No longer takes Remic diaz. Not on any other Crohn's medications. 1 BM's every 3 days. Every time she is on a ntibiotics, she has loose stool. She sometimes loses liquid stool. No air or stool in he r urine. She comes for evaluation of her rectovaginal fistula. Note: oxycontin for lower back pain. Past Medical History Diagnosis Date Other general symptoms(780.99) Hypertension Irritable bowel syndrome Regional enteritis of unspecified site GERD (gastroesophageal reflux disease) High risk for colon cancer UTI (urinary tract infection) Depressive disorder, not elsewhere classified Anxiety state, unspecified Unspecified hemorrhagic conditions PFO (patent foramen ovale) 03/16/2012 Benign esophageal stricture Enterovesical fistula Rectovaginal fistula Esophageal reflux Chronic airway obstruction (HCC) Backache Cystitis Hypercoagulable state (HCC) Mononeuritis Peripheral vascular disease (HCC) Patent foramen ovale with atrial septal aneurysm TIA (transient ischemic attack) OB History Para Term AB TAB SAB Ectopic Multiple Living 5 4 1 1 Obstetric Comments 4 vaginal deliveries. 4 episiotomies. Never had tear into her rectum. First one weighed 8 lbs. 15.5 lbs. No forceps. Past Surgical History Procedure Laterality Date Packing of abdomen/splenectomy 04/2014 first was at OSH, left open, with splenectomy Embolization of artery Left Iliolumbar artery embolization Embolectomy of right popliteal and tibial arteries via leg incision 03/17/12 Appendectomy Cholecystectomy Bso/cohn/suprapubic tube placement 03/29/00 Curt/bowel resection 09/20/95 Wash out and fascial closure 04/24/2014 [facility] Allergies Allergen Reactions Demerol [Meperidine (Pf)] N/V Erythromycin N/V Levaquin [Levofloxacin] Pt reportedly had tendonitis with therapy. However, had a retrial and had no problems Penicillin G N/V with oral therapy Reglan [Metoclopramide Hcl] Pt states she gets wired Current Outpatient Prescriptions Medication Sig acetaminophen 325 mg oral tablet 2 tablets by feeding tube route every six hours. cyanocobalamin 1,000 mcg/mL injection solution 1,000 mcg. lisinopril 20 mg oral tablet 20 mg. LORazepam 0.5 mg oral tablet 0.5 mg. metoprolol tartrate 50 mg oral tablet 0.75 tablets by feeding tube route two times bhakti y. morphine 15 mg oral tablet 15 mg. omeprazole 40 mg oral capsule,delayed release(DR/EC) Take 40 mg by mouth two times bhakti y. Indications: GASTROESOPHAGEAL REFLUX potassium chloride SR 20 mEq oral tablet,ER particles/crystals 20 mEq. If taking lasix predniSONE 10 mg oral tablet 15 mg. promethazine 25 mg oral tablet 25 mg. warfarin 7.5 mg oral tablet 1 tablet by feeding tube route once daily in the evening. ( Patient taking differently: 6 mg by feeding tube route once daily in the evening. Indication s: HYPERCOAGULABILITY STATES) No current facility-administered medications for this visit. 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 Recent fevers and chills. Nonproductive cough. Dysp alanis with walking 50 feet. No weight loss, chest pain, chest pressure, or abdominal pain. See resident HPI and resident review of systems. All other systems reviewed and are negati ve. Physical exam: BP 135/69 | Pulse 92 | Temp (Src) 36.8 C (98.2 F) (Oral) | RR 16 | Ht 1 .753 m (5' 9") | Wt 83.235 kg (183 lb 8 oz) | SpO2 96% | BMI 27.09 kg/(m^2) General: well-developed, overweight female in NAD Mental Status: A&O x 4 Neurologic: moves all extremities well HEENT: anicteric sclera, EOMI, no facial sinus tenderness, oropharynx benign Neck: supple, no LAD, no thyromegaly Lungs: clear to auscultation bilaterally Heart: regular rate and rhythm Abd: soft, midline incision without hernia, mild diffuse tenderness, nondistended Back: no spinal or costovertebral tenderness Groins: no inguinal lymphadenopathy Extremities: no calf tenderness, no clubbing/cyanosis/edema Perineum: no external hemorrhoids or fissures Rectal: decreased tone, possible anterior defect 1.5 cm from verge, no masses/abscesses Anoscopy: enlarged anterior anal papilla, no clear opening or inflammation With this New Referral patient, I spent 62 minutes of ucta-ao-jalm time, of which more than half the time was spent in counseling. 56 minute document review y Taylor gabriel MD - 07/28/2015 1:28 PM PDT 07/28/2015 [facility] New Patient Consultation Referring Physician: Aren Rose DO Reason for consultation: Rectovaginal fistula HPI: Smita Willingham is a 59 yo F with 42 year history of Crohn's in the small bowel, GERD, osteopor osis, history of venous thrombosis, iatrogenic spinal cord injury and chronic UTI. She has p reviously underwent small bowel resection with CURT in 1995 and BSO in 1999. She has been admitted recently twice in the last month UTI sepsis presumed to be related to her rectovaginal fistula, which she reports she has had for the past 20 years. She has freq uent infections requiring hospitalizations, of which the frequency is increasing. She report s 3 admissions this year, two in the past month. She has been treated with steroids and anti biotics for her UTIs. Ms Willingham reports her diarrhea is controlled with opioids, however when she has diarrhea she reports fecal discharge from her vagina. Her diarrhea is typically associated with antibiot ics that she receives for treatment of her UTI. During the times that she has diarrhea she h as occassional fecal incontinence. She typically has BM every three days. She denies blood i n her stool. She denies air or sediment in her urine, although she has poor bladder control and wears incontinence pads. She is tolerating a regular diet with no unintentional weight g ain. Colonoscopy 03/29/12: Demonstrated fistula tract and rectal stricture as well as severe ri ght sided erythema, ulceration and loss of vascularity which could be due to ischemia, crohn's disease or CMV. Her most recent colonos copy was this past month at [facility] in [facility] with Dr. Krishna, which per patient was negative. Her Crohns is currently well controlled with steroids. ROS: Denies CP/ SOB, fever/chills, N/V/D/C, cough, dizziness. Today she is fatigued, with c hronic back pain. PMH: Past Medical History Diagnosis Date Other general symptoms(780.99) Hypertension Irritable bowel syndrome Regional enteritis of unspecified site GERD (gastroesophageal reflux disease) High risk for colon cancer UTI (urinary tract infection) Depressive disorder, not elsewhere classified Anxiety state, unspecified Unspecified hemorrhagic conditions PFO (patent foramen ovale) 03/16/2012 Benign esophageal stricture Enterovesical fistula Rectovaginal fistula Esophageal reflux Chronic airway obstruction (HCC) Backache Cystitis Hypercoagulable state (HCC) Mononeuritis Peripheral vascular disease (HCC) PSH: Past Surgical History Procedure Laterality Date Laparotomy Embolization of artery Left Iliolumbar artery embolization Embolectomy of right popliteal and tibial arteries via leg incision 03/17/12 Appendectomy Cholecystectomy Curt & bso (total abdominal hysterectomy and bilateral salpingo-oophorectomy) Small bowel resection MED: Current outpatient prescriptions: acetaminophen 325 mg oral tablet, 2 tablets by feedi ng tube route every six hours., Disp: , Rfl: cyanocobalamin 1,000 mcg/mL injection solution, 1,000 mcg., Disp: , Rfl: lisinopril 20 mg oral tablet, 20 mg., Disp: , Rfl: LORazepam 0.5 mg oral tablet, 0.5 mg., Disp: , Rfl: metoprolol tartrate 50 mg oral tablet, 0.75 tablets by feeding tube route two times daily., Disp: 60 tablet, Rfl: 3 morphine 15 mg oral tablet, 15 mg., Disp: , Rfl: omeprazole 40 mg oral capsule,delayed release(DR/EC), Take 40 mg by mouth two times daily. Indications: GASTROESOPHAGEAL REFLUX, Disp: , Rfl: potassium chloride SR 20 mEq oral tablet,ER particles/crystals, 20 mEq. If taking lasix, Di sp: , Rfl: predniSONE 10 mg oral tablet, 15 mg., Disp: , Rfl: promethazine 25 mg oral tablet, 25 mg., Disp: , Rfl: warfarin 7.5 mg oral tablet, 1 tablet by feeding tube route once daily in the evening. (Pat ient taking differently: 6 mg by feeding tube route once daily in the evening. Indications: HYPERCOAGULABILITY STATES), Disp: 60 tablet, Rfl: 1 ALL: is allergic to demerol; erythromycin; levaquin; penicillin g; and reglan. SH: reports that she has been smoking. She has never used smokeless tobacco. She reports that she does not drink alcohol or use illicit drugs. Lives in [place] with her . FH: Family History: None ROS: All others negative other than HPI Exam BP 135/69 | Pulse 92 | Temp (Src) 36.8 C (98.2 F) (Oral) | RR 16 | Ht 1.753 m (5' 9") | Wt 83.235 kg (183 lb 8 oz) | SpO2 96% | BMI 27.09 kg/(m^2) Gen: Alert, well-appearing, in mild distress Neuro: A&O, normal gait Psych: normal affect, speech HEENT: Anicteric, NCAT, no cervical lymphadenopathy Cor: RRR Pulm: CTAB Abd: soft, diffusely tender, midline ventral incisional scar well healed. Extr: warm, no LE edema. Rectal exam: Per Dr Marie's note Labs: None Additional data: Reviewed prior operative reports, recent CT, pill endoscopy report and progress notes from OSH Impression: Smita Willingham is a 59 yo F with Crohn's disease with presumed recto-vaginal fistula and recur rent UTI secondary to fecal discharge from vagina who may be a candidate for surgical repair in the future. Recent CT done 2 weeks ago during her most recent admission for UTI demonstr ated diffuse colitis. To improve the likelihood of success of surgical repair, we recommend resolution of colitis. Recommendations: 1) Review outside colonoscopy completed at [facility] - request has been sent 2) Plan for flex sig locally in [place] in 8 weeks time. Patient to send report to Dr. Marie . 3) RTC for pre-op appointment with Dr. Marie pending results of flex sig. We will discuss surg ical options at that time. documented in this e ncounter Plan of Treatment Not on filedocumented as of this encounter Procedures + +--------+ + + + | Procedure Name | Priori | Date/Time | Associated Diagnosis | Comments | | | ty | | | | + +--------+ + + + | [facility] ANOSCOPY, DIAG | Routin | 08/04/2015 | Crohn's disease of | | | INCL SPEC COLLEC | e | 11:44 AM | both small and | | | | | PDT | large intestine with | | | | | | complication (HCC) | | | | | | Rectovaginal | | | | | | fistula | | + +--------+ + + + documented in this encounter Visit Diagnoses + + | Diagnosis | + + | Rectovaginal fistula - Primary Digestive-genital tract fistula, female | + + | Crohn's disease of both small and large intestine with complication (HCC) Regional | | enteritis of small intestine with large intestine | + + documented in this encounter
--- OUTSIDE RECORDS SUMMARY | ~2019-02-11 | XMS | Encounter Summary ---
Demographics + + + | Address | [address] | | | [place] [address] | + + + | Home Phone [...] [place], [place] | | | | | [address] | | + + + + + | Cami Sawyer | ECON | Unknown | | + + + + + Care Team Providers + +------+ + | Care Cook Morning Name | Role | Phone | + +------+ + | Aren Rose DO | PCP | | + +------+ + Encounter Details +--------+ + + + + | Date | Type | Department | Care Team | Description | +--------+ + + + + | 03/15/ | Results | LAB REFERRED TESTS | Other, Faculty | | | 2011 | Only | [address] [facility] | [phone] | | | | | [place] [address] | | | | | | [place], [place] | | | | | | [address] | | | +--------+ + + + [...] DEPT OF | [address] | [place], [place] | | | CARDIOLOGY | [address] | [address] | | + + + + + documented in this encounter Visit Diagnoses Not on filedocumented in this encounter"
--- OUTSIDE RECORDS SUMMARY | ~2019-02-11 | XMS | Encounter Summary ---
Demographics + + + | Address | [address] | | | [place] [address] | + + + | Home Phone | | + + + | Preferred Language | Unknown | + + + | Marital Status | | + + + | Jainism Affiliation | NRP | + + + | Race | White | + + + | Ethnic Group | Not or | + + + Author + + + | Author | [facility] | + + + | Organization | [facility] | + + + | Address | Unknown | + + + | Phone | Unavailable | + + + Support + + + + + | Name | Relationship | Address | Phone | + + + + + | Kole Willingham | [place] | [address] | | | | | [place], [place] | | | | | [address] | | + + + + + | Cami Sawyer | ECON | Unknown | | + + + + + Care Team Providers + +------+ + | Care Electronics Processor Name | Role | Phone | + +------+ + | Aren Rose DO | PCP | | + +------+ + Encounter Details +--------+ + + + + | Date | Type | Department | Care Team | Description | +--------+ + + + + | 03/15/ | Results | LAB REFERRED TESTS | Other, Faculty | | | 2011 | Only | [address] [facility] | [phone] | | | | | [place] | | | | | | [place], [place] | | | | | | [address] | | | +--------+ + + + [...] DEPT OF | [address] | [place], [place] | | | CARDIOLOGY | [address] | [address] | | + + + + + documented in this encounter Visit Diagnoses Not on filedocumented in this encounter"
--- OUTSIDE RECORDS SUMMARY | ~2019-02-11 | XMS | Clinical Summary ---
Demographics + + + | Address | [address] | | | [place] [address] | + + + | Home Phone | | + + + | Preferred Language | Unknown | + + + | Marital Status | | + + + | Yazidi Affiliation | NRP | + + + | Race | White | + + + | Ethnic Group | Not or | + + + Author + + + | Author | [facility] | + + + | Organization | [facility] | + + + | Address | Unknown | + + + | Phone | Unavailable | + + + Support + + + + + | Name | Relationship | Address | Phone | + + + + + | Kole Willingham | ECON | [address] | | | | | [place], [place] | | | | | [address] | | + + + + + | Cami Sawyer | ECON | Unknown | | + + + + + Care Team Providers + +------+ + | Care Caseworker Name | Role | Phone | + +------+ + | Aren Rose DO | PCP | | + +------+ + Source Comments ARTUR is fully live on both EpicCare Ambulatory and EpicCare InPatient.[facility]3] Allergies + + + + + + [...] + | | Additional | | | informationPatient | | | taking differently: | | [...] + + | Overview: Vaccinations given at [facility] pneumonia and flu and | | at [facility] HIB and meningeal coccal 04/25 | + [...] | | | | | | | [address] | | + +--------+ +--------+ + +--------+ | [employer] | AARP | xxxxxxxxx-x | 04/11/19 | [phone] | [address] | Indemn | | [employer] | | | 13-Pre | 9 | [id number] | ity | | | | | sent | | [place], [place] | | | | | | | | [address] | | + +--------+ +--------+ + +--------+ [...] | 1956 | [phone] | [place] [address] | | | bianca | | | [address] (Home) | | | | | | | [phone] | | | | | | | [...]
--- OUTSIDE RECORDS SUMMARY | ~2019-02-11 | XMS | Encounter Summary ---
Demographics + + + | Address | [address] | | | [place] [address] | + + + | Home Phone | | + + + | Preferred Language | Unknown | + + + | Marital Status | | + + + | Anabaptism Affiliation | NRP | + + + | Race | White | + + + | Ethnic Group | Not or | + + + Author + + + | Author | [facility] | + + + | Organization | [facility] | + + + | Address | Unknown | + + + | Phone | Unavailable | + + + Support + + + + + | Name | Relationship | Address | Phone | + + + + + | Kole Hartley | LAMONT | [address] | | | | | [place], [place] | | | | | [address] | | + + + + + | Cami Sawyer | ECON | Unknown | | + + + + + Care Team Providers + +------+ + | Care Nutrition Aides Teacher Name | Role | Phone | + [...] Hospital | | | | | | [place], [place] | [place], [place] | | | | | | [address] | [address] | | | | | | Phone: | Phone: | | | | | | [phone] | [phone] | | | | | | Fax: | Fax: | | | | | | [phone] | [phone] | +--------+--------+ + + + + Diagnostic [...] | | | | | | | [place], [place] | | | | | | | [address] | | | | | | | Phone: | | | | | | | [phone] | | | | | | | Fax: | | | | | | | [phone] | +--------+--------+ + + + + Diagnostic [...] | | | | LOWER | Road [place], | [facility] | | | | | EXTREMITY | [place] [address] | Rd Mailcode: | | | | | BILAT | Phone: | [phone] | | | | | | [phone] | Physician's | | | | | | Fax: | Pavilion | | | | | | [phone] | [place], [place] | | | | | | | [address] | | | | | | | Phone: | | | | | | | [phone] | | | | | | | Fax: | | | | | | | [phone] | +--------+--------+ + + + + Diagnostic [...] | | | | | | | [place], [place] | | | | | | | [address] | | | | | | | Phone: | | | | | | | [phone] | | | | | | | Fax: | | | | | | | [phone] | +--------+--------+ + + + + Diagnostic [...] | | | Dariela Saab MD | [facility] [address] | | | | [...] | | | | | | | [place], [place] | | | | | | | [address] | | | | | | | Phone: | | | | | | | [phone] | +--------+--------+ + + + + Diagnostic [...] DUPLEX | [address] | [address] [facility] | | | | | LOWER | [facility], | [facility] | | | | | EXTREMITY | [place] [address] | Rd Mailcode: | | | | | BILATERAL | Phone: | [phone] | | | | | COMPLETE | [phone] | Physician's | | | | | | Fax: | Pavilion | | | | | | [phone] | [place], [place] | | | | | | | [address] | | | | | | | Phone: | | | | | | | [phone] | | | | | | | Fax: | | | | | | | [phone] | +--------+--------+ + + + + Diagnostic [...] | | | | DUPLEX | Road [place], | [address] | | | | | COMPLETE | [place] [address] | Rd Mailcode: | | | | | BILATERAL | Phone: | [phone] | | | | | | [phone] | Physician's | | | | | | Fax: | Pavilion | | | | | | [phone] | [place], [place] | | | | | | | [address] | | | | | | | Phone: | | | | | | | [phone] | | | | | | | Fax: | | | | | | | [phone] | +--------+--------+ + + + + Diagnostic [...] | | | | | | | [place], [place] | | | | | | | [address] | | | | | | | Phone: | | | | | | | [phone] | | | | | | | Fax: | | | | | | | [phone] | +--------+--------+ + + + + Diagnostic [...] | | | | | | | [place], [place] | | | | | | | [address] | | | | | | | Phone: | | | | | | | [phone] | | | | | | | Fax: | | | | | | | [phone] | +--------+--------+ + + + + Reason [...] + + | 03/12/ | Hospital | [facility] [address] | [address], | | | 2011 - | Encounter | [address] | [address] | | | | | 5A [facility] | [facility] [place] | | | 04/01/ | | [place], [place] | [address] | | | 2011 | | [address] | [phone] | | | | | [phone] | | | | | | | Chary Doherty, | | | | | | [address] | | | | | | [address] | | | | | | [place], [place] | | | | | | [address] | | | | | | [phone] | | | | | | | | | | | | Xin Rust | | | | | | MD Nena [address] | | | | | | [address] [facility] | | | | | | [place], [place] | | | | | | [address] | | | | | | [phone] | | | | | | | | | | | | Osbaldo Garcia MD | | | | | | [address] | | | | | | [facility], | | | | | | [place] [address] | | | | | | [phone] | | | | | | | [...] Arterial thrombi: the patient was admitted to [facility] from [facility] because she presented wit h nausea, bilious vomiting and was found by CT scan to have bowel wall thickening, 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 At arrival to [facility] it was learned that she did NOT indeed have ischemic colitis. 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 She underwent embolectomy on 03/17, which resulted in anabaptist of flow and no loss of tissue [...] was agreed that the patient needed a termination clerk treatment and we settled o n remicade. [...] Destination: Home Other Discharge Orders and Instructions orange picking supervisor your lovenox syringes at the [facility]. Go to the hospital on Tuesday for an INR check. The results should be sent to Dr. Maloney ( Dr. Rose's partner). He will communicate with you about a change in dose if necessary. Th en, on Tuesday you should return to Dr. Roes's office. At that time, you should have an other INR check. Your INR goal should be 2.5-3.0. It is imperative that you continue coumadin to prevent fut ure clots from forming. Please call your GI doctor in [facility] to arrange for your second infusion [...] whether or not the INR is truly phone representative of anticoagulation. In patients with APLA [...] Xin Rust MD - 04/01/2012 10:33 PM [facility] Internal Medicine Attending Interval note Hospital [...] I NR on Tuesday. KIRIT MD YOCASTA [facility] DEPARTMENT: [id number]- [facility] Faculty PPV Place of Service:- Inpatient Date of Service: 04/01/2012 CSN: [id number] Suggested Modifier: GC Resident Involved: Yes Suggested CPT: 20690- Dishcarge < 30 min Electronically signed by [...] questions. Debi Oconnor MD GI/Hepatology Fellow Pager: [phone] INTERVAL HISTORY: MRI abdomen shows no abscess; [...] risk of emboli, I called Dr. Rodriges (marketing regional consultant for her PCP) to coordinate f/u of [...] noted any additions above. KIRITMarisa RUST MD [facility] DEPARTMENT: [id number]- [facility] Faculty PPV Place of Service:- Inpatient Date of Service: 03/31/2012 CSN: [id number] Suggested Modifier: Resident Involved: Yes Suggested CPT: 94589- Subsequent, Detailed/high complex, 35 min Davonte De [...] state: J Gastroenterol. 2004 Jan;39(10):948-54. PubMed PMID: [id number]. Consulted [facility] for further studies on platelet inhibitor and [...] no insurance. Wanting to go home for Al[place]. Nurse repor ts that she has admitted [...] income that does not q ualify for LiquiGlide. F/E/N Thrombosis ppx: Warfarin, Lovenox bridge Glucose: not indicated Diet: regular Code: Do Not Resuscitate/Do Not Intubate This patient was seen with GM3, refer to Attending and Resident notes for assessment and pl an. Nuñez [place], Sub-Zipper Setter Chainstitch Pgr: [phone] Ajay De La Rosa MD - 03/30/2012 [...] bridge after d/c until coumading therapeutic with childcare aide through medication assistance program Hypoalbuminemia (03/14/2012) Assessment: [...] noted any additions above. KIRIT MD YOCASTA [facility] DEPARTMENT: [id number]- [facility] Faculty PPV Place of Service:- Inpatient Date of Service: 03/30/2012 CSN: [id number] Suggested Modifier: Resident Involved: Yes Suggested CPT: 84018- Subsequent, Detailed/high complex, 35 min Debi Yepez [...] follow closely Shaun SAEED GI Fellow Pg [phone] signed by Debi Oconnor MD at 03/30/2012 5:32 PM PSTJacoby Tovar MD - 03/30/2012 10:25 AM PSTFormatting of this note might be different from the origi nal. [facility] DEPARTMENT OF SURGERY Daily Progress Note PROGRESS NOTE: Attending Physician: Xin Rust MD 03/31/2012 Subjective/Overnight Events: - latest CT shows resolution of abscess - no GI bleeding - no rectal/anal pain - tolerating reg diet MEDICATIONS: Reviewed in [facility] VITAL SIGNS: Refer to [facility] Intake/Output Summary (Last 24 hours) at 03/31/12 [...] concerns. Jacoby Tovar MD Surgery, R2 Diagnoses: [id number] Crohn disease This assessment and plan was [...] state: J Gastroenterol. 2004 Jan;39(10):948-54. PubMed PMID: [id number]. Consulted Heme for further studies on platelet [...] Nathan Weeks MD Internal Medicine PGY1 Pager [phone] tCecilia prado MD - 03/29/2012 6:37 PM [...] team. Debi Oconnor MD GI Fellow Pager [phone] signed by Debi Oconnor MD at 03/29/2012 [...] planning) Debi Oconnor MD Fellow, Gastroenterology pager: [phone] signed by Debi Oconnor MD at 03/29/2012 [...] note for this encounter. OSBALDO GARCIA MD [facility] [address] [facility] 5[address] [place], [place] [id number] Andrew Shah MD - 10:41 AM PST [facility] DEPARTMENT OF SURGERY Daily Progress Note PROGRESS NOTE: Attending Physician: Osbaldo Garcia MD 03/29/2012 Subjective/Overnight Events: - bowel prep initiated - Hct stable - no hematochezia or hemetemesis - MEDICATIONS: Reviewed in [facility] VITAL SIGNS: Refer to [facility] Intake/Output Summary (Last 24 hours) at 03/29/12 [...] GI Jacoby Tovar MD Surgery, R2 Diagnoses: [id number] Crohn disease This assessment and plan was [...] Osbaldo Mcfarlane MD - 03/29/2012 6:[facility] Author: OSBALDO GARCIA [...] myself provided conscious sedation. OSBALDO GARCIA MD [facility] [address] [place] [address] I spent 35 min in critical care (not including procedures) [facility] DEPARTMENT: MICU, [facility]- [id number] Place of Service: Date of Service: 03/29/2012 CSN: [id number] Modifiers:GC Resident Involved: yes Suggested CPT: 78217 Critical Care, Initial 30-74 minutes Carlton Godwin [...] day of transfer to MICU (1 05/29/11), [facility] informed us that according to the [...] 0659 03/29/12 07 - 03/30/12 0659 Shift 9526-2723 6279-9936 8254-9817 Daily Total 1814-4094 5080-9653 9923-9987 Daily Total I N T A K E P.O. 1750 2525 4275 I.V. 934 3681 792 3030 Shift Total 934 3740 3450 8124 O U T P U T Urine 1075 2950 1875 5900 Urine 1075 2950 1875 5900 Other 575 099 883 4726 Measured Stool Output 350 425 775 Stool/Urine Mix 575 575 Shift Total 1650 3300 2300 7250 NET -632 438 1893 874 Intake/Output Summary (since admission) at 03/12/12 1910 Last data filed at 03/29/12 0547 Gross for the last 17 days Intake 02145 ml Output 41085 ml Net since Admission -77441 ml Physical Exam: General Appearance: middle aged [...] Carlton Betancourt DO PGY-1 Internal Medicine Pager [phone] Debi Yepez MD - 03/11 4:31 PM [...] questions. Debi Oconnor MD GI/Hepatology Fellow Pager: [phone] INTERVAL HISTORY: Episode of melena last night [...] patient in the past. OSBALDO GARCIA MD [facility] [address] [address] I spent 35 min in critical care (not including procedures) [facility]: [facility]- [id number] Place of Service: Date of Service: 03/28/2012 CSN: [id number] Modifiers:GC Resident Involved: yes Suggested CPT: 22982 Critical Care, Initial 30-74 minutes Carlton Godwin [...] 03/28/12 0659 03/28/12699 - 03/29/12 0659 Shift 4623-2314 0506-4117 1047-2225 Daily Total 4972-7501 0195-8200 3722-0282 Daily Total I N T A K E P.O. 240 300 540 I.V. 404 404 934 934 Blood 1300 1300 Shift Total 370 631 9397 2244 934 934 O U T P [...] Gross for the last 16 days Intake 94226 ml Output 84679 ml Net since Admission -36828 ml Physical Exam: General Appearance: tearful middle [...] Carlton Betancourt DO PGY-1 Internal Medicine Pager [phone] Andrew Shah MD - 6:52 AM PST [...] Sukumar Zuniga DO Internal Medicine PGY-2 Pg [phone] Davonte De La Rosa MD - 03/27/2012 [...] noted any additions above. KIRIT MD YOCASTA [facility] DEPARTMENT: [id number]- [facility] Faculty PPV Place of Service:- Inpatient Date of Service: 03/27/2012 CSN: [id number] Suggested Modifier: GC Resident Involved: Yes Suggested CPT: 05234- Subsequent, Detailed/high complex, 35 min Marely Mccann [...] was discussed and formulated with gastroenterology at [facility], Dr. Hennessy. Please call with any questions. Debi Oconnor MD GI/Hepatology Fellow Pager: [phone] INTERVAL HISTORY: Imaging reviewed with radiology; too [...] "questionable after living 7 years of hell". Electric Appliance Installer team will follow as needed. Chaplain Dung Riley M.Div., [facility] [phone] Pager #[phone]; #[phone] Xin De La Rosa MD - 7:31 [...] J Gastroenterol. 2004 Jan;39(10):948-54. PubMed PMID: [id number]. Consulted Heme for further studies on platelet [...] soon with OPAT, F/U CT pelvis of maanda-rectal abscess; insura nce coverage her largest issue, CM looking to other options for care since patient has incom e that does not qualify for jose F/E/N Thrombosis ppx: Warfarin Glucose: not indicated Diet: regular Code: Do Not Resuscitate/Do Not Intubate This patient was seen with GM3, refer to Attending and Resident notes for assessment and pl an. ---- Joaquin Rivera, MS4 Pager # [phone] signed by Xin Rust MD at 03/27/2012 [...] noted any additions above. 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 Raphael Norman MD Internal Medicine, PGY-2 [id number] Xin De La Rosa MD - 03/25/2012 [...] persists - not larger Resident spoke with radiology technologist who spoke with staff - they did [...] taking more PO if still low ask salesperson meats to see Hypophosphatemia (03/14/2012) Assessment: rechecked and [...] noted any additions above. KIRIT MD YOCASTA [facility] DEPARTMENT: [id number]- [facility] Faculty PPV Place of Service:- Inpatient Date of Service: 03/25/2012 CSN: [id number] Suggested Modifier: GC Resident Involved: Yes Suggested CPT: 24724- Subsequent, Detailed/high complex, 35 min oaquin Rivera [...] J Gastroenterol. 2004 Jan;39(10):948- 54. PubMed PMID: [id number]. Consulted Heme for further studies on platelet [...] income that does not qualif y for LiquiGlide F/E/N Thrombosis ppx: Warfarin Glucose: not indicated Diet: regular Code: Do Not Resuscitate/Do Not Intubate This patient was seen with GM3, refer to Attending and Resident notes for assessment and pl an. ---- Joaquin Nicole, MS4 Pager # [phone] Ajay De La Rosa MD - 03/24/2012 [...] drainage of abscess and coordination of care [facility] radiology reviewing perirectal abscess imaging, options for intervention and need for rep eat imagin, also with GI on plan. I personally interviewed the patient, performed the gunter elements of the physical examinatio n, and personally formulated the assessment and plan with the resident. I agree with the MS4 s documentation and have noted any additions above. KIRIT RUST MD [facility] DEPARTMENT: [id number]- [facility] Faculty PPV Place of Service:- Inpatient Date of Service: 03/24/2012 CSN: [id number] Suggested Modifier: GC Resident Involved: Yes Suggested CPT: 02188- Subsequent, Detailed/high complex, 35 min Davonte De [...] J Gastroenterol. 2004 Jan;39(10):948- 54. PubMed PMID: [id number]. Consulted Heme for further studies on platelet [...] an. ---- Joaquin Goodwinidad, MS4 Pager # [phone] Ajay De La Rosa MD - 03/23/2012 10:44 PM [facility]3 Internal Medicine Attending Interval note Hospital [...] noted any additions above. KIRITMarisa RUST MD [facility] DEPARTMENT: [id number]- [facility] Faculty PPV Place of Service:- Inpatient Date of Service: 03/23/2012 CSN: [id number] Suggested Modifier: AKHIL Resident Involved: Yes Suggested CPT: 35635- Subsequent, Detailed/high complex, 35 min Davonte De [...] to be done today JERI DIAZ MD [address] [facility] [address] [place] [address] Xin De La Rosa MD - 03/23/2012 [...] state: J Gastroenterol. 2004 Jan;39(10):948-54. PubMed PMID: [id number]. Consulted Heme for further studies on platelet [...] has income that does not qualify for LiquiGlide F/E/N Thrombosis ppx: Warfarin Glucose: not indicated Diet: regular Code: Do Not Resuscitate/Do Not Intubate This patient was seen with GM3, refer to Attending and Resident notes for assessment and pl an. ---- Joaquin Rivera, MS4 Pager # [phone] Ajay De La Rosa MD - 03/22/2012 10:50 PM [facility] Internal Medicine Attending Interval note Hospital [...] noted any additions above. KIRITMarisa RUST MD [facility] DEPARTMENT: [id number]- [facility] Faculty PPV Place of Service:- Inpatient Date of Service: 03/22/2012 CSN: [id number] Suggested Modifier: Resident Involved: Yes Suggested CPT: 61410- Subsequent, Detailed/high complex, 35 min ox, Jeri [...] carotid duplex ordered today JERI DIAZ MD [facility] [address] [place] [address] Xin De La Rosa MD - 03/22/2012 [...] Xin Rust MD Author:Joaquin Rivera MS4 IID:Mackenzie Hartely is a 56 y.o. female with a [...] 03/20/12 202 1 NA -- 141 @ [facility] -- 142 139 K -- [...] PTT in mixing 1:1 Neg cardiolipin, neg giry-A-adriqcidtrhn Legionella Agg Urine pending Cultures: BLOOD CULTURE [...] barber: J Gastroenterol. 2004 Jan;39(10):948-54. PubMed PMID: [id number]. - Consult Heme for further studies on [...] an. ---- Joaquin Rivera, 4 Pager # [phone] Ajay De La Rosa MD - 03/21/2012 [...] 142/76 | Pulse 106[sinus tach per television station manager[ | Temp 37.7 C (99.9 F) | [...] -- also coordination of care with pharmD. [facility] DEPARTMENT: [id number]- [facility] Faculty PPV Place of Service:- Inpatient Date of Service: 03/21/2012 CSN: [id number] Suggested Modifier: GC Resident Involved: Yes Suggested CPT: 50537- Subsequent, Detailed/high complex, 35 min Jennifer Tolentino [facility] - 03/21/2012 12:38 PM PST [...] y.o. Female with multiple complex medical problems; [facility] Vascular Surge ry consulted due to Right [...] as new baseline Ok to discharge per [facility] Vascular Surgeons once ambulating and medical issues are stable. Will continue to follow while in patient. [facility] Vascular Surgery Clinic, [facility] [address], phone number [phone] Please schedule followup appointment within 2-3 weeks of surgery for wound check. Dr. Sukumar Salgado, [facility] Vascular Surgery Attending. MERT OLIVA [facility] VASCULAR SURGERY [address] [place] [address] ham, Moses Asher MD - 03/21/2012 6:55 [...] w ill need to establish care with furnace caretaker so that further treatment options can be [...] assessment and plan. Moses Anthony MD Neurology Zipper Setter Chainstitch Pager [phone] oaquin Rivera - 02/2012 6:55 AM PST [...] an. ---- Joaquin Rivera, MS4 Pager # [phone] Xin De La Rosa M D - [...] noted any additions above. KIRIT MD YOCASTA [facility] DEPARTMENT: [id number]- [facility] Faculty PPV Place of Service:- Inpatient Date of Service: 03/20/2012 CSN: [id number] Suggested Modifier: Resident Involved: Yes Suggested CPT: 61404- Subsequent, Detailed/high complex, 35 min Jennifer Tolentino [...] -- -- -- -- Assessment and Plan: Mcakenzie Hartley is a 56 y.o. Female with multiple complex medical problems; [facility] Vascular Surge ry consulted due to Right [...] chair as tolerated, RLE WBAT -Please obtain [facility] Arterial duplex ultrasound/DELORIS of both legs prior to discharge as n ew baselineObtain ABIs with waveforms To establish new blood-flow baseline Ok to discharge per [facility] Vascular Surgeons once ambulating and medical issues are stable. Will continue to follow while in patient. [facility] Vascular Surgery Clinic, [facility] [address], phone number [phone] Please schedule followup appointment within 2-3 weeks of surgery for wound check. Dr. Sukumar Slagado, [facility] Vascular Surgery Attending. MERT OLIVA [facility] VASCULAR SURGERY [address] [place] [address] aphael Norman - 7:58 AM PSTI agree [...] plan. Raphael Norman MD Internal Medicine, PGY-2 19079 oaquin Rivera - 2011 7:58 AM PST [...] an. ---- Joaquin Goodwinidad, MS4 Pager # [phone] Juma Pimentel MD - 12/2011 3:35 PM [...] warm and dry. Minimal edema. FARRUKH site [facility] no FARRUKH, c/d/i. Pulse/signal exam: RLE [...] record is Dr. Salgado. JUMA CARRINGTON MD [facility] [address] [place] [address] Chary Moore M D - 03/19/2012 9:14 [...] note from 03/14 for details. Therefore the vngu-tkqk-uvjsr plan givens s been to allow her [...] plan. Lovenox bridge to be covered by [facility]. 9) Occlusive thrombus 10) Hypoalbuminemia 11) Hypophosphatemia 12) TIA (transient ischemic attack) - with PFO 13) PFO (patent foramen ovale) - plan is for lifelong coumadin. No additional benefit from device closure per CLOSURE I trial. Chary Doherty MD Chief Resident, Internal Medicine Pager: [phone] [facility] DEPARTMENT: Hosp- [id number] Place of Service: Date of Service: 03/19/2012 CSN: [id number] Modifiers:GC Resident Involved: Yes Suggested CPT: 72612 Subsequent Visit Detailed/High complexity 35 min I [...] will need to establish c are with furnace caretaker so that further treatment options can be [...] assessment and plan. Moses Anthony MD Neurology Zipper Setter Chainstitch Pager [phone] Jose Antonio Baker MD - 03/18/2012 1:01 [...] Recorded LastCBG Intervention: Notified (Comment);Medication given (03/12/12 2156) Physical Exam Gen: Alert, NAD Extremities: moving [...] outpt GI, plans to establish care in [place], perhaps Dr. Byrd. Transitioning to PO meds, [...] Doherty MD Chief Resident, Internal Medicine Pager: [phone] [facility] DEPARTMENT: Hosp- [id number] Place of Service: Date of Service: 03/18/2012 CSN: [id number] Modifiers: Resident Involved: Yes Suggested CPT: 91157 Subsequent Visit Exp Prob Foc/Mod Complexity 25 [...] Date 03/18/12 07 - 03/19/12 0659 Shift 5822-2536 5258-0119 8730-3016 24 Hour Total I N T A K E P.O. 620 620 I.V. 20 20 40 Shift Total 640 20 660 O U T P U T Urine 675 100 775 Other 400 400 Shift Total 422 607 0068 Weight (kg) 74.1 74.1 74.1 74.1 General: [...] refusing). Will need to establish care with furnace caretaker so that further treatment options can be [...] in MS4 note. Moses Anthony MD Neurology Zipper Setter Chainstitch Pager [phone] signed by Moses Asher MD at 03/18/2012 [...] an. ---- Nuñez Rivera, MS4 Pager # [phone] Chary Moore MD - 03/17/2012 8:39 PM [...] refusing). Will need to establish care with furnace caretaker so this can be discussed as outpt [...] Doherty MD Chief Resident, Internal Medicine Pager: [phone] [facility] DEPARTMENT: Hosp- [id number] Place of Service: - Date of Service: 03/17/2012 CSN: [id number] Modifiers:GC Resident Involved: Yes Suggested CPT: 79373 Subsequent Visit Detailed/High complexity 35 min I [...] at end of case. MIRELA SALGADO MD [facility] [address] [id number]/[id number] [place] [phone] ham, Gloria Lawson MD - 1 05/18/2011 [...] until she's therapeutic with her coumadin and [facility] has agreed to provide discounted INR [...] y Gloria Anthony MD Neurology PGY1 Pager: [phone] oaquin Rivera - 10/2011 7:19 AM PST [...] an. ---- Joaquin Rivera, MS4 Pager # [phone] Chary Moore MD - 03/16/2012 12:56 PM [...] Doherty MD Chief Resident, Internal Medicine Pager: [phone] [facility] DEPARTMENT: Hosp- [id number] Place of Service: - Date of Service: 03/16/2012 CSN: [id number] Modifiers: Resident Involved: Yes Suggested CPT: 77342 Subsequent Visit Exp Prob Foc/Mod Complexity 25 min and 43726 Subseque nt Visit Detailed/High complexity 35 min [...] DNR/DNI Gloria Anthony MD Neurology PGY-1 Pager [phone] The patient was seen and discussed with [...] Doherty MD Chief Resident, Internal Medicine Pager: [phone] [facility] DEPARTMENT: Hosp- [id number] Place of Service: Date of Service: 03/15/2012 CSN: [id number] Modifiers:GC Resident Involved: Yes Suggested CPT: 43735 Subsequent Visit Detailed/High complexity 35 min Dariela [...] plan. Dariela Santoyo MD Internal Medicine PGY-3 [id number] Daryl Singleton MD - 08/2011 7:18 PM PSTHematology Attending Consult Note: I saw and examined Ms. Hartley with the Hematology Fellow, Dr. Anthony Camejo and [facility] [place] the 5A Medicine unit. I participated in the gunter components of today's [facility] pital visit including review of the [...] re Daryl Arteaga MD, PhD Hematology Oncology [facility] DEPARTMENT: [id number] [facility] Place of Service: - Inpatient Date of Service: 03/15/2012 Modifiers: GC - Resident Involved Suggested CPT: 10650 - Subsequent, Detailed/High complex 35 min nthony [...] anticoagulation clinic f/u closely; our clinic at [facility] cannot provide any suppli es -anticoagulation with [...] as above. MD Hematology/Oncology Fellow Pager # [phone] signed by Daryl Arteaga MD at 03/15/2012 [...] with any questions. Bigg Robles, R1 Pager: [phone] INTERVAL HISTORY: - NAEO - VSS, AF [...] 2.8* 1.1* PO4 2.1* -- 1.1* 1.7* [facility] - 03/15/2012 2:12 PM PSTVascular [...] wishes to pro ceed. Mirela Samano M.D. [facility] Vascular Surgery [address] [place] [address], [place] [phone] Email: [email or web address] Sandoval Ko MD - 03/15/2012 9:30 AM [...] off to day. Jacoby Tovar MD Surgery [id number] signed by Sandoval Tovar MD at 03/15/2012 [...] monitor Gloria Anthony MD Neurology PGY1 Pager [phone] Daryl Singleton MD - 07/2011 4:57 PM PSTHematology Attending Consult Note: I saw and examined Ms. Young with the Hematology Fellow, Dr. Anthony Camejo in the [address] [place] [address] unit. I participated in the gunter components [...] re Daryl Arteaga MD, PhD Hematology Oncology [facility] DEPARTMENT: [id number] [facility] Place of Service: - Inpatient Date of Service: 03/14/2012 Modifiers: GC - Resident Involved Suggested CPT: 16597 - Subsequent, Detailed/High complex 35 min nthony [...] as above. MD Hematology/Oncology Fellow Pager # [phone] signed by Daryl Arteaga MD at 03/14/2012 [...] really for treatment Recommendations communicated with [employer] agriculture intern. We will continue to follow. This plan was discussed and formulated with gastroenterology at [facility], Dr. Casiano. Please call with any questions. 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 Gopal Casiano MD Android Ios Developerapplication integration specialist Department of Gastroenterology INTERVAL HISTORY: - NAEO [...] IMAGING Reviewed outside imaging with radiologist at [facility] and CT abd and pelvis shows 2 [...] Becca Moncada MD General Surgery, R2 Pager: [phone] [facility] Staff I saw and evaluated the patient. I agree with the findings and the plan of care as jannie hair in the resident s note. Left foot warm and well perfused. Patient pain-free. Will repe at CTA to see if there has been any thrombus progression. No urgent need for surgery on left leg at this point. Mirela Samano M.D. [facility] Vascular Surgery [address] [place] [address], [address] [phone] Email: [email or web address] Irene Aguilera MD - 03/14/2012 3:52 AM [...] at OSH. 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 She also had leukocytosis to 45 with a left shift, anemia, and thrombocytosis (platelets to 759). Her abdominal exam was not acute and she remained hemodynamically stable. Transferre d to [facility] for possible thrombectomy, initiated heparin therapy, and [...] were obscured by overlying bowel gas. The apn-zw-chdywz left external iliac arteries appear patent with [...] transient arterial occlusion. Reported CT findings at [facility] are also concerning for diffuse intra-abdominal [...] CARLOS A SALCIDO MD R2, General Surgery [facility] 03/13/2012 1:20 PM Current Facility-Administered Medications Medication [...] Units 2,800 Units Intravenous NEEDED (BOLUS) Bibiana aKiser Adams, PA-C heparin bolus from continuous infusion [...] 4-8 mg 4-8 mg Intravenous Q2H PRN Xni Max MD 4 mg at 1207 ondansetron [...] Becca Moncada MD General Surgery, R2 Pager: [phone] Vascular Staff I saw and evaluated the [...] at a later time. Mirela Samano M.D. [facility] Vascular Surgery [address] [place] [address], [address] [address] Email: [email or web address] Richie Goodman MD - 06/2011 11:15 AM PSTI was present and rounded with the MONOTYPE MACHINIST today. I interviewed and examined the patient. I reviewed the history, as documented today. I agree with the MONOTYPE MACHINIST's assessmen t and plan. Pt is stable [...] 75 Morphine IV PRN zofran PRN Labs: [facility] reviewed Significant Results K 3.3 Mg 2.8 [...] visceral and aortic thrombus transfer red from [facility] last night with concerns for ischemic bowel. [...] and celiac arteries who was transferred to [facility] for management o f vascular disease and possible bowel ischemia. No evidence of bowel ischemia, bowel thicken ing likely Crohn's flare. 1. Crohn's flare: GI consult. Consider transfer to medicine for crohn's management with [facility] following 2. Multivessel occlusions/thrombii: vascular surgery following. [...] Her abdominal exam does not reveal peritonitis. [facility] ular surgery recommended a heparin drip given her subtherapeutic INR. Hematology will be con sulted for her leukocytosis and declining platelet count in the setting of heparin therapy. Gastroenterology is making recommendations regarding acute management of her Crohn's disease . She will no longer require ICU care and she will transfer to the general medicine service. Jf Wiseman MD FACS assembly stock supervisor Division of Trauma, Critical Care, and Acute Care Surgery [phone] documented in this e ncounter Plan of [...] [facility] | [address] | [place] [address] | | | SERVICES, CORE | PARK [...] [facility] | [address] | [place] [address] | | | SERVICES, CORE | [address] | | | + + + + + INR (03/31/2012 3:58 AM PST) + +-------+ + + + | Component | Value | Ref Range | Performed | Pathologist | | | | | At | Signature | + +-------+ + + + | INR | 1.11 | 0.90 - 1.20 INR | [facility] | | | | | | LABORATORY [...] | + + + + + | [facility] | [address] | [place] [address] | | | SERVICES, CORE | PARK [...] | + + + + + | [facility] | [address] | [place] [address] | | | SERVICES, CORE | PARK [...] [facility] | [address] | [place] [address] | | | ARON, JANELL | PARK [...] | | + +---------+ + + | [facility] DEPARTMENT OF | | | [...] [facility] | [address] | [place] [address] | | | SERVICES, CORE | PARK [...] [facility] | [address] | [place] [address] | | | SERVICES, CORE | PARK [...] [facility] | [address] | [place] [address] | | | SERVICES, CORE | PARK [...] | + + + + + | [facility] | [address] | [place] [address] | | | SERVICES, CORE | PARK [...] | + + + + + | [facility] | [address] | [place] [address] | | | SERVICES, CORE | PARK [...] | + + + + + | [facility] | [address] | [place] [address] | | | SERVICES, CORE | P[address] [...] [facility] | [address] | [place] [address] | | | ARON, JANELL | [address]RI[address] [...] [facility] | [address] | [place] [address] | | | SERVICESJANELL | [address] [...] + | [facility] - | [address] | [place] [address] | | | [place] | | | [...] | + + + + + | [facility] - | [address] | [place] [address] | | | [place] | | | | + + + [...] + | [facility] - | [address] | [place] [address] | | | [place] | | | [...] | + + + + + | [facility] | [address] | [place] [address] | | | SERVICES, CORE | PARK [...] | + + + + + | [facility] | [address] | [place] [address] | | | SERVICES, CORE | PARK [...] | + + + + + | [facility] | [address] | [place] [address] | | | SERVICES, CORE | PARK [...] | + + + + + | [facility] | [address] | [place] [address] | | | SERVICES, CORE | KRISTEN [...] | + + + + + | [facility] | [address] | [place] [address] | | | PATHOLOGY | [address] [...] [facility] | [address] | [place] [address] | | | SERVICES, JANELL | KRIST[address] [...] | + + + + + | [facility] | [address] | [place] [address] | | | SERVICES, CORE | KRISTEN [...] [facility] | [address] | [place], [place] | | | [facility] | [address] | [address] | | | TESTS | | | [...] [facility] | [address] | [place] [address] | | | SERVICES, CORE | PARK [...] [facility] | [address] | [place] [address] | | | SERVICES, CORE | PARK [...] | + + + + + | [facility] | [address] | [place] [address] | | | SERVICES, CORE | KRISTEN [...] [facility] | [address] | [place], [place] | | | [facility] [place] | [address] | [address] | | | TESTS | | | [...] [facility] | [address] | [place] [address] | | | SERVICES, CORE | KRISTEN [...] [facility] | [address] | [place] [address] | | | SERVICES, CORE | KRISTEN [...] [facility] | [address] | [place] [address] | | | SERVICES, CORE | PARK [...] [facility] | [address] | [place] [address] | | | ARON, JANELL | [address] | | | + + + + + X-RAY PORTABLE CHEST 1 VIEW (03/28/2012 6:28 AM PST) + + + + + + | Component | Value | Ref Range | Performed | Pathologist | | | | | At | Signature | + + + + + + | X-RAY | STUDY: NH CHEST 1 VIEW | | | | [...] | | + +---------+ + + | [facility] DEPARTMENT OF | | | [...] + + + + | PRODUCT | [id number] | | [facility] | | | UNIT [...] + + + + | BLOOD | 34586 | | [facility] | | | PRODUCT [...] | + + + + + | [facility] | [address] | [place] [address] | | | PATHOLOGY | [address] [...] + + + + | PRODUCT | [id number] | | [facility] | | | UNIT [...] + + + + | BLOOD | 47911 | | [facility] | | | PRODUCT [...] DEPARTMENT OF | [address] | [place] [address] | | | PATHOLOGY | [address] [...] (H) | 60 - 99 mg/dL | [facility] - | | | GLUCOSE, [...] [facility] | [address] | [place], [place] | | | [facility] [place] | [address] | [address] | | | TESTS | | | [...] | + + + + + | [facility] | [address] | [place] [address] | | | SERVICES, JANELL | KRIST[address] [...] view image for the detailed interpretation from Gemisimo results. | CARDIOLOGY | + + + + + + + + | Performing | Address | City/State/Zipcode | Phone Number | | Organization | | | | + + + + + | [facility] | [address] | [place], [place] | | | CARDIOLOGY | [address] | [address] | | + + + + + [...] | + + + + + | [facility] | [address] | [place] [address] | | | SERVICES, CORE | PARK [...] + + + + | PRODUCT | [id number] | | [facility] | | | UNIT [...] + + + + | BLOOD | 15845 | | [facility] | | | PRODUCT [...] DEPARTMENT OF | [address] | [place] [address] | | | PATHOLOGY | [address] [...] + + + + | PRODUCT | [id number] | | [facility] | | | UNIT [...] + + + + | BLOOD | 60467 | | [facility] | | | PRODUCT [...] | + + + + + | [facility] DEPARTMENT | [address] | [place] [address] | | | PATHOLOGY | [address] [...] | + + + + + | [facility] | [address] | [place] [address] | | | SERVICESJANELL | [address] [...] [facility] | [address] | [place] [address] | | | SERVICES, CORE | KRISTEN [...] | + + + + + | [facility] | [address] | [place] [address] | | | SERVICES, CORE | [address] [...] [facility] | [address] | [place] [address] | | | SERVICES, CORE | PARK [...] [facility] | [address] | [place] [address] | | | SERVICES, | [address] [...] | + + + + + | [facility] | [address] | [place] [address] | | | SERVICES, | [address] [...] + + + + | PRODUCT | [id number] | | [facility] | | | UNIT [...] + + + + | BLOOD | 99132 | | [facility] | | | PRODUCT [...] | + + + + + | [facility] DEPARTMENT OF | [address] | [place] [address] | | | PATHOLOGY | [address] [...] + + + + | PRODUCT | [id number] | | [facility] | | | UNIT [...] + + + + | BLOOD | 36531 | | [facility] | | | PRODUCT [...] | + + + + + | [facility] DEPARTMENT | [address] | [place] [address] | | | PATHOLOGY | [address] [...] | + + + + + | [facility] | [address] | [place] [address] | | | SERVICES, CORE | [address] [...] | + + + + + | [facility] | [address] | [place] [address] | | | SERVICES, CORE | KRIST[address] [...] [facility] | [address] | [place] [address] | | | SERVICES, CORE | [address] [...] | + + + + + | [facility] | [address] | [place] [address] | | | JNAELL SHARP | [address] | | | [...] [facility] | [address] | [place] [address] | | | SERVICES, CORE | [address] [...] | + + + + + | [facility] | [address] | [place] [address] | | | SERVICES, CORE | [address] [...] | + + + + + | [facility] | [address] | [place] [address] | | | SERVICES, CORE | [address] [...] | + + + + + | [facility] | [address] | [place] [address] | | | SERVICES, CORE | KRIST[address] [...] [facility] | [address] | [place] [address] | | | SERVICES, CORE | P[address] [...] | + + + + + | [facility] | [address] | [place] [address] | | | SERVICES, CORE | [address] [...] | + + + + + | [facility] | [address] | [place] [address] | | | SERVICES, CORE | [address] [...] | + + + + + | [facility] | [address] [facility] | [place] [address] | | | SERVICES, CORE | P[address] [...] | + + + + + | [facility] | [address] [facility] | [place] [address] | | | SERVICES, CORE | [address] [...] | + + + + + | [facility] | [address] | [place] [address] | | | SERVICES, CORE | P[address] [...] | + + + + + | [facility] | [address] [facility] | [place] [address] | | | SERVICES, CORE | KRISTEN [...] oral, | | | | | | [id number] hrs | | | | | | [...] | + + + + + | [facility] | [address] | [place] [address] | | | SERVICES, CORE | PARK [...] | + + + + + | [facility] | [address] | [place] [address] | | | SERVICES, CORE | KRISTEN [...] [facility] | [address] | [place] [address] | | | ARON, JANELL | [address] [...] | + + + + + | [facility] | [address] | [place] [address] | | | SERVICES, CORE | PARK [...] | + + + + + | [facility] | [address] | [place] [address] | | | SERVICES, CORE | KRISTEN [...] | | | | Final | | [place] | | | | CULTURE RESULT:< 10,000 [...] + | [facility] - | [address] | [place] [address] | | | [place] | | | | + + + [...] | + + + + + | [facility] | [address] [facility] | [place] [address] | | | SERVICES, CORE | KRISTEN [...] [facility] | [address] | [place] [address] | | | SERVICES, CORE | PARK [...] | + + + + + | [facility] | [address] | [place] [address] | | | SERVICES, CORE | [address] | | | + + + + + CULTURE, BLOOD BACTI & YEAST [facility] (03/23/2012 11:22 PM PST) + + + [...] | + + + + + | [facility] | [address] | [place] [address] | | | SERVICES, CORE | KRISTEN [...] view image for the detailed interpretation from Gemisimo results. | CARDIOLOGY | + + + + + + + + | Performing | Address | City/State/Zipcode | Phone Number | | Organization | | | | + + + + + | [facility] | [address] | [place], [place] | | | CARDIOLOGY | [address] | [address] | | + + + + + [...] | | + +---------+ + + | [facility] DEPARTMENT OF | | | [...] | + + + + + | [facility] | [address] [facility] | [place] [address] | | | JANELL SHARP | [address] [...] [facility] | [address] | [place] [address] | | | SERVICES, CORE | P[address] [...] | + + + + + | [facility] | [address] | [place] [address] | | | SERVICESJANELL | [address] [...] | + + + + + | [facility] | [address] [facility] | [place] [address] | | | SERVICES, CORE | PARK [...] [facility] | | | | | | [facility],[address] [place] [address] | | | | | | [place] [address] | | | | | | [phone]. | | | | | | keith, [...] [facility] | [address] | [place], [place] | | | [facility] | | [address] | | + + + + + [...] | + + + + + | [facility] | [address] | [place] [address] | | | SERVICES, CORE | KRISTEN [...] [facility] | [address] | [place] [address] | | | JANELL SHARP | [address] | | | + + + + + CULTURE, BLOOD BACTI & YEAST [facility] (03/22/2012 7:08 PM PST) + + + [...] | + + + + + | [facility] | [address] | [place] [address] | | | SERVICES, JANELL | [address] [...] | | | | | XIN GARZON ([id number]) | | | | | | on 03/22/2012 4:25:06 PM | | | | + + + + + + + + | Specimen | + + | | + + + + + | Narrative | Performed At | + + + | Please click | [facility] DEPT OF | | on view image for the detailed interpretation from Gem[facility] results. | CARDIOLOGY | + + + + + + + + | Performing | Address | City/State/Zipcode | Phone Number | | Organization | | | | + + + + + | [facility] | [address] | [place], [place] | | | CARDIOLOGY | [address] | [address] | | + + + + + [...] [facility] | [address] | [place], [place] | | | [facility] | [facility] | [address] | | | TESTS | | | [...] (H) | 60 - 99 mg/dL | [facility] - | | | GLUCOSE, [...] [facility] | [address] | [place], [place] | | | [facility] | [address] | [address] | | | TESTS | | | [...] | + + + + + | [facility] | [address] | [place] [address] | | | SERVICES, CORE | KRISTEN [...] [facility] | [address] | [place] [address] | | | JANELL SHARP | [address] [...] | + + + + + | [facility] | [address] [facility] | [place] [address] | | | SERVICES, CORE | KRISTEN [...] [facility] | [address] | [place] [address] | | | SERVICES, CORE | P[address] [...] | + + + + + | [facility] | [address] | [place] [address] | | | SERVICES, CORE | KRISTEN [...] [facility] | [address] | [place], [place] | | | [facility] CARE | [address] | [address] | | | TESTS | | | [...] | + + + + + | [facility] | [address] | [place] [address] | | | SERVICES, CORE | PARK [...] [facility] | [address] | [place], [place] | | | [facility] [place] | [address] | [address] | | | TESTS | | | [...] view image for the detailed interpretation from Gemisimo results. | CARDIOLOGY | + + + + + + + + | Performing | Address | City/State/Zipcode | Phone Number | | Organization | | | | + + + + + | [facility] | [address] | [place], [place] | | | CARDIOLOGY | [address] | [address] | | + + + + + [...] + + + | [facility] | [address] | [place], [place] | | | [facility] | [address] | [address] | | | TESTS | | | [...] | + + + + + | [facility] | [address] | [place] [address] | | | JANELL SHARP | [address] [...] [facility] | [address] | [place] [address] | | | SERVICES, CORE | KRISTEN [...] | + + + + + | [facility] | [address] | [place] [address] | | | SERVICES, CORE | P[address] [...] | + + + + + | [facility] | [address] | [place] [address] | | | SERVICES, JANELL | KRIST[address] [...] | + + + + + | [facility] | [address] | [place] [address] | | | SERVICES, CORE | [address] | | | + + + + + 12 LEAD ECG (03/21/2012 1:28 AM PST) + + + + + + | Component | Value | Ref Range | Performed | Pathologist | | | | | At | Signature | + + + + + + | VENTRICULAR | 107 | BPM | [facility] | | | RATE | | [...] GARCIA | | | | | | ([id number]) on 03/22/2012 | | | | | | 12:47:28 PM | | | | + + + + + + + + | Specimen | + + | | + + + + + | Narrative | Performed At | + + + | Please click | [facility] | | on view image for the detailed interpretation from Gemisimo results. | CARDIOLOGY | + + + + + + + + | Performing | Address | City/State/Zipcode | Phone Number | | Organization | | | | + + + + + | [facility] | [address] | [place], [place] | | | CARDIOLOGY | [address] | [address] | | + + + + + [...] | | + +---------+ + + | [facility] DEPARTMENT OF | | | [...] [facility] | [address] | [place] [address] | | | SERVICES, CORE | PARK [...] | + + + + + | [facility] | [address] | [place] [address] | | | SERVICES, CORE | PARK [...] 98 | 60 - 99 mg/dL | [facility] - | | | GLUCOSE, [...] [facility] | [address] | [place], [place] | | | [facility] | [address] | [address] | | | TESTS | | | [...] + + + | Please click | [facility] | | on view image for the detailed interpretation from [facility] results. | CARDIOLOGY | + + + + + + + + | Performing | Address | City/State/Zipcode | Phone Number | | Organization | | | | + + + + + | [facility] | [address] | [place], [place] | | | CARDIOLOGY | [address] | [address] | | + + + + + [...] [facility] | [address] | [place], [place] | | | [facility] | [address] | [address] | | | TESTS | | | [...] (H) | 60 - 99 mg/dL | [facility] - | | | GLUCOSE, [...] [facility] | [address] | [place], [place] | | | [facility] | [address] | [address] | | | TESTS | | | | + + + + + X-RAY PORTABLE CHEST 1 VIEW (03/20/2012 10:13 AM PST) + + + + + + | Component | Value | Ref Range | Performed | Pathologist | | | | | At | Signature | + + + + + + | X-RAY | STUDY: [place] CHEST 1 VIEW | | | | [...] | | + +---------+ + + | [facility] DEPARTMENT OF | | | [...] [facility] | [address] | [place] [address] | | | SERVICES, CORE | KRISTEN [...] | + + + + + | [facility] | [address] | [place] [address] | | | SERVICES, CORE | KRISTEN [...] (H) | 0.90 - 1.20 INR | [facility] | | | | | [...] [facility] | [address] | [place] [address] | | | SERVICES, CORE | PARK [...] | + + + + + | [facility] | [address] [facility] | [place] [address] | | | SERVICES, CORE | KRISTEN [...] [facility] | [address] | [place], [place] | | | [facility] | [address] | [address] | | | TESTS | | | [...] + | [facility] | [address] [facility] [address] | [place], [place] | | | [facility] | [address] | [address] | | | TESTS | | | [...] | + + + + + | [facility] | [address] [facility] | [place] [address] | | | SERVICES, CORE | KRISTEN [...] | + + + + + | [facility] | [address] | [place] [address] | | | SERVICES, CORE | PARK [...] (H) | 60 - 99 mg/dL | [facility] | | | GLUCOSE, | | [...] [facility] | [address] | [place], [place] | | | [facility] | [address] | [address] | | | TESTS | | | [...] view image for the detailed interpretation from Gemis[employer] results. | CARDIOLOGY | + + + + + + + + | Performing | Address | City/State/Zipcode | Phone Number | | Organization | | | | + + + + + | [facility] | [address] | [place], [place] | | | CARDIOLOGY | [address] | [address] | | + + + + + [...] [facility] | [address] | [place], [place] | | | [facility] | [address] | [address] | | | TESTS | | | [...] | | + +---------+ + + | [facility] DEPARTMENT OF | | | [...] [facility] | [address] | [place], [place] | | | [facility] CARE | [address] | [address] | | | TESTS | | | [...] | + + + + + | [facility] | [address] | [place] [address] | | | SERVICES, CORE | KRISTEN [...] | + + + + + | [facility] | [address] | [place] [address] | | | SERVICES, CORE | KRISTEN [...] | + + + + + | [facility] | [address] | [place] [address] | | | SERVICES, CORE | KRISTEN [...] + + | [facility] | [address] [facility] | [place] [address] | | | JANELL SHARP | KRISTEN [...] | | | | Final | | [place] | | | | CULTURE RESULT:No growth [...] + | [facility] | [address] | [place] [address] | | | [facility] | [...] [facility] | [address] | [place] [address] | | | SERVICES, CORE | PARK [...] [facility] | [address] | [place] [address] | | | SERVICES, JANELL | PARK [...] [facility] | [address] | [place] [address] | | | SERVICES, CORE | [address] | | | + + + + + CULTURE, BLOOD BACTI & YEAST [facility] (03/19/2012 1:10 AM PST) + + + [...] | + + + + + | [facility] | [address] | [place] [address] | | | SERVICES, CORE | KRISTEN [...] | + + + + + | [facility] | [address] | [place] [address] | | | SERVICES, CORE | KRISTEN [...] (H) | 60 - 99 mg/dL | [facility] - | | | GLUCOSE, [...] [facility] | [address] | [place], [place] | | | [facility] CARE | [address] | [address] | | | TESTS | | | [...] | + + + + + | [facility] | [address] | [place] [address] | | | ARON, JANELL | KRISTEN [...] [facility] | [address] | [place], [place] | | | [facility] | [facility] | [address] | | | TESTS | | | [...] [facility] | [address] | [place] [address] | | | SERVICES, CORE | PARK [...] | + + + + + | [facility] | [address] | [place] [address] | | | SERVICES, CORE | KRISTEN [...] [facility] | [address] | [place], [place] | | | [facility] CARE | [address] | [address] | | | TESTS | | | | + + + + + OPERATION RECORD (03/18/2012 11:22 AM PST) + + | Transcriptions | + + | Mirela Salgado MD - 03/18/2012 8:38 AM [facility] Date: 03/17/2012ttending | | Surgeon: Mirela Salgado M.D.Hris Developer(s): Sandoval | | Bennett Galvez M.D.Preoperative Diagnosis(es):Embolus, [...] | | tolerated the procedure well.MIRELA SALGADO, [facility] / [id number] / | | [id number] / [id number] / T: 03/17/2012 | |was no pulse. [...] | | | |MIRELA SALGADO MD | |facilities maintenance engineer | | | |GLM / HS | |[id number] / [id number] / [id number] / | | | | | + [...] [facility] | [address] | [place] [address] | | | SERVICES, CORE | PARK [...] [facility] | [address] | [place] [address] | | | SERVICES, CORE | PARK [...] | + + + + + | [facility] | [address] | [place] [address] | | | SERVICES, CORE | PARK [...] | + + + + + | [facility] | [address] | [place] [address] | | | SERVICES, CORE | KRISTEN [...] | + + + + + | [facility] | [address] [facility] | [place] [address] | | | SERVICES, CORE | KRISTEN [...] | + + + + + | [facility] | [address] | [place] [address] | | | SERVICES, CORE | PARK [...] + + | [facility] | [address] [facility] | [place] [address] | | | JANELL SHARP | PARK [...] [facility] | [address] | [place], [place] | | | HILL, POINT OF CARE | [address] | [address] | | | TESTS | | | [...] [facility] | [address] | [place], [place] | | | [facility] | [facility] | [address] | | | TESTS | | | [...] [facility] | [address] | [place], [place] | | | [facility] | [address] | [address] | | | TESTS | | | [...] | + + + + + | [facility] | [address] | [place] [address] | | | SERVICES, CORE | KRISTEN [...] | + + + + + | [facility] | [address] | [place] [address] | | | ARON, CORE | KRISTEN [...] | + + + + + | [facility] | [address] | [place] [address] | | | SERVICES, [facility] | [address] | [...] | + + + + + | [facility] | [address] | [place] [address] | | | SERVICES, CORE | KRISTEN [...] (H) | 60 - 99 mg/dL | [facility] - | | | GLUCOSE, [...] [facility] | [address] | [place], [place] | | | [facility] | [address] | [address] | | | TESTS | | | [...] [facility] | [address] | [place] [address] | | | SERVICES, | [address] [...] [facility] | [address] | [place] [address] | | | SERVICES, | [address] [...] | + + + + + | [facility] | [address] | [place] [address] | | | SERVICES, CORE | KRISTEN [...] [facility] | [address] | [place], [place] | | | [facility] | [facility] | [address] | | | TESTS | | | [...] | | + +---------+ + + | [facility] DEPARTMENT OF | | | [...] (H) | 60 - 99 mg/dL | [facility] - | | | GLUCOSE, [...] [facility] | [address] | [place], [place] | | | [facility] | [facility] | [address] | | | TESTS | | | [...] [facility] | [address] | [place], [place] | | | [facility] | [address] | [address] | | | TESTS | | | [...] | + + + + + | [facility] | [address] | [place] [address] | | | SERVICES, CORE [...] [facility] | [address] | [place], [place] | | | [facility] | [address] | [address] | | | TESTS | | | [...] | + + + + + | [facility] | [address] | [place] [address] | | | SERVICES, CORE | PARK [...] | + + + + + | [facility] | [address] | [place] [address] | | | SERVICES, CORE | PARK [...] [facility] | [address] | [place] [address] | | | SERVICES, CORE | PARK [...] [facility] | [address] | [place] [address] | | | JANELL SHARP | PARK [...] - [facility] | [address] | [place], [place] | | | [facility] | [address] | [address] | | | TESTS | | | [...] (H) | 60 - 99 mg/dL | [facility] - | | | GLUCOSE, [...] [facility] | [address] | [place] | | | [facility] | [address] | [address] | | | TESTS | | | [...] | | + +---------+ + + | [facility] DEPARTMENT OF | | | [...] Kirstie | | | | | | [place] | | | | + + + [...] [facility] | [address] | [place], [place] | | | [facility] | [address] | [address] | | | TESTS | | | [...] [facility] | [address] | [place], [place] | | | [facility] | [facility] | [address] | | | TESTS | | | [...] + + | Performing | Address | City/State/[facility] | Phone Number | | Organization | | | | + + + + + | [facility] | [address] | [place] [address] | | | SPECIAL ARON | KRISTEN [...] [facility] | [address] | [place] [address] | | | SERVICES, SPECIAL | PARK [...] | + + + + + | [facility] | [address] | [place] [address] | | | SERVICES, SPECIAL | PARK [...] | + + + + + | [facility] | [address] | [place] [address] | | | SERVICES, SPECIAL | KRISTEN [...] | + + + + + | [facility] | [address] | [place] [address] | | | SERVICES, CORE | KRISTEN [...] | + + + + + | [facility] | [address] | [place] [address] | | | SERVICES, CORE | KRISTEN [...] [facility] | [address] | [place] [address] | | | SERVICES, CORE | PARK [...] | + + + + + | [facility] | [address] | [place] [address] | | | SERVICES, JANELL | KRISTEN [...] [facility] | [address] | [place], [place] | | | [facility] | [facility] | [address] | | | TESTS | | | [...] | + + + + + | [facility] | [address] | [place] [address] | | | SERVICES, CORE | PARK [...] - [facility] | [address] | [place], [place] | | | [facility] | [facility] | [address] | | | TESTS | | | [...] (H) | 60 - 99 mg/dL | [facility] - | | | GLUCOSE, [...] + + + | [facility] | [address] | [place], [place] | | | [facility] | [address] | [address] | | | TESTS | | | [...] Davina | | | | | | Lucas | | | | + + + [...] [facility] | [address] | [place], [place] | | | [facility] | [address] | [address] | | | TESTS | | | [...] + + + + | PRODUCT | [id number] | | [facility] | | | UNIT [...] + + + + | BLOOD | 12671 | | [facility] | | | PRODUCT [...] | + + + + + | [facility] DEPARTMENT OF | [address] | [place] [address] | | | PATHOLOGY | [address] [...] + + + + | PRODUCT | [id number] | | [facility] | | | UNIT [...] + + + + | BLOOD | 69647 | | [facility] | | | PRODUCT [...] [facility] | [address] | [place] [address] | | | PATHOLOGY | [address] [...] | + + + + + | [facility] | [address] | [place] [address] | | | SERVICES, CORE | KRISTEN [...] (H) | 60 - 99 mg/dL | [facility] - | | | GLUCOSE, [...] [facility] | [address] | [place], [place] | | | [facility] | [address] | [address] | | | TESTS | | | [...] [facility] | [address] | [place], [place] | | | [facility] OF CARE | [address] | [address] | | | TESTS | | | [...] [facility] | [address] | [place] [address] | | | SERVICES, CORE | PARK [...] | + + + + + | [facility] | [address] | [place] [address] | | | SERVICES, CORE | KRISTEN [...] | + + + + + | [facility] | [address] | [place] [address] | | | SERVICES, CORE | KRISTEN [...] if | | | | | | [id number] >400: | | | | | | [...] | + + + + + | [facility] - | [address] | [place] [address] | | | [place] | | | [...] | + + + + + | [facility] | [address] | [place] [address] | | | SERVICES, CORE | PARK [...] [facility] | [address] | [place] [address] | | | SERVICES, CORE | PARK [...] | + + + + + | [facility] | [address] | [place] [address] | | | SERVICES, CORE | KRISTEN [...] + | [facility] | [address] | [place] [address] | | | [place] | | | [...] [facility] | [address] | [place], [place] | | | [facility] | [address] | [address] | | | TESTS | | | [...] [facility] | [address] | [place] [address] | | | SERVICES, CORE | PARK [...] | + + + + + | [facility] | [address] | [place] [address] | | | SERVICES, CORE | KRISTEN [...] 98 | 60 - 99 mg/dL | [facility] - | | | GLUCOSE, [...] [facility] | [address] | [place], [place] | | | OSCAR POINT OF CARE | [address] | [address] | | | TESTS | | | [...] | + + + + + | [facility] | [address] | [place] [address] | | | SERVICES, CORE | KRISTEN [...] gas. | | | | | | Yngete-pk-sjvjmo left | | | | | | [...] Davina | | | | | | Lucas | | | | + + + [...] | | + +---------+ + + | [facility] DEPARTMENT OF | | | [...] - [facility] | [address] | [place], [place] | | | [facility] | [facility] | [address] | | | TESTS | | | [...] % | [facility] | | | | [employer],[address] | | REG UNIV | | | | Jarett Card, [facility] | | PTH - INT[facility] | | | | [address] | | | | | | [phone].[email or web address]. | | | | | | Kaitlin [...] [facility] | [address] | [place], [place] | | | UNIV PTH - INTFC | | [address] | | + + + + + [...] | + + + + + | [facility] | [address] [facility] | [place] [address] | | | SERVICES, CORE | PARK [...] [facility] | [address] | [place] [address] | | | JANELL SHARP | PARK [...] - [facility] | [address] | [place], [place] | | | [facility]SC[facility] POINT OF CARE | [address] | [address] | | | TESTS | | | [...] [facility] | [address] | [place] [address] | | | SERVICES, CORE | PARK [...] | + + + + + | [facility] | [address] [facility] | [place] [address] | | | SERVICES, CORE | KRISTEN [...] [facility] | [address] | [place], [place] | | | [facility]ARE | [address] | [address] | | | TESTS | | | [...] [facility] | [address] | [place] [address] | | | JANELL SHARP | KRISTEN [...] [facility] | [address] | [place] [address] | | | SERVICES, CORE | PARK [...] | + + + + + | [facility] | [address] | [place] [address] | | | JANELL SHARP | KRISTEN [...] | + + + + + | [facility] | [address] | [place] [address] | | | SERVICES, CORE | [address] | | | + + + + + MAGNESIUM, PLASMA (03/13/2012 3:42 AM PST) + +---------+ + + + | Component | Value | Ref Range | Performed | Pathologist | | | | | At | Signature | + +---------+ + + + | MAGNESIUM,P | 2.8 (H) | 1.8 - 2.5 mg/dL | [facility] | | | [facility] | | | [...] | + + + + + | [facility] | [address] | [place] [address] | | | SERVICES, CORE | KRISTEN [...] [facility] | [address] | [place] [address] | | | SERVICES, CORE | PARK [...] | | | | Final | | [place] | | | | CULTURE RESULT:No growth [...] + | [facility] - | [address] | [place] [address] | | | [place] | | | [...] | | | Final CULTURE | | [place] | | | | RESULT:Salmonella, | | [...] + | [facility] - | [address] | [place] [address] | | | [facility] | [...] | + + + + + | [facility] | [address] | [place] [address] | | | SERVICES, CORE | KRISTEN [...] [facility] | [address] | [place], [place] | | | [facility] CARE | [address] | [address] | | | TESTS | | | [...] view image for the detailed interpretation from [employer] results. | CARDIOLOGY | + + + + + + + + | Performing | Address | City/State/Zipcode | Phone Number | | Organization | | | | + + + + + | [facility] | [address] | [place], [place] | | | CARDIOLOGY | [address] | [address] | | + + + + + [...] | | + +---------+ + + | [facility] DEPARTMENT OF | | | [...] [facility] | [address] | [place] [address] | | | SERVICES, CORE | KRISTEN [...] + + | [facility] | [address] [facility] | [place] [address] | | | SERVICES, CORE | [address] | | | + + + + + COAGULOPATHY PANEL (INR,APTT,FIBRINOGEN) (03/12/2012 8:06 PM PST) + +---------+ + + + | Component | Value | Ref Range | Performed | Pathologist | | | | | At | Signature | + +---------+ + + + | INR | 1.17 | 0.90 - 1.20 INR | [facility] | | | | | | LABORATORY [...] | + + + + + | [facility] | [address] | [place] [address] | | | SERVICES, CORE | KRISTEN [...] | + + + + + | [facility] | [address] | [place] [address] | | | SERVICES, JANELL | KRISTEN [...] (H) | 60 - 99 mg/dL | [facility] - | | | GLUCOSE, [...] [facility] | [address] | [place], [place] | | | OSCAR POINT OF CARE | [address] | [address] | | | TESTS | | | [...] [facility] | [address] | [place] [address] | | | SERVICES, CORE | PARK [...] [facility] | [address] | [place] [address] | | | SERVICES, CORE | PARK [...] | + + + + + | [facility] | [address] | [place] [address] | | | SERVICES, | [address] [...] [facility] | [address] | [place] [address] | | | SERVICES, | [address] [...] + + + | [facility] | [address] | [place] [address] | | | SERVICES, JANELL | KRISTEN [...] [facility] | [address] | [place] [address] | | | SERVICES, CORE | PARK [...] | + + + + + | [facility] | [address] [facility] | [place] [address] | | | SERVICES, CORE | KRISTEN [...] | Procedure Note | + + | iVtaliy, Faculty - 03/28/2012 2:29 PM PST | [...] | | | | First dose on [facility] 03/30/12 at | | | | | [...] | | | | First dose on [facility] 03/23/12 at | | | | | [...] PST | | | | | dose, [facility] 03/15/12 at 1415 | | | [...] | | | Hours, ONCE, 1 dose, [facility] 03/16/12 | | | | | | [...] | | | | | 1 dose, [facility] 03/21/12 at 1515 | | PM PST [...] | | | | | 1115, Until [facility] 03/30/12 at 1055, | | | | [...] | | | | | 0840, Until [facility] 03/30/12 at 1057, | | | | [...] | | | oral, ONCE, 1 dose, [facility] 03/25/12 | | AM PST | | | | | at 1015 | | | | | | + +-------+ +--------+---+---+ +---+---+ | | | +---+---+ + +-------+ +--------+---+---+ | potassium chloride (aka | Given | 03/30/20 | 20 mEq | | | | KLOR-CON) packet 20 mEq 20 mEq, | | 12 12:07 | | | | | oral, ONCE, 1 dose, [facility] 03/30/12 | | PM PST | | | | | at 1100 | | | | | | + +-------+ +--------+---+---+ +---+---+ | | | +---+---+ + +-------+ +--------+---+---+ | potassium chloride (aka | Given | 03/17/20 | 40 mEq | | | | KLOR-CON) packet 40 mEq 40 mEq, | | 12 6:23 | | | | | oral, ONCE, 1 dose, [facility] 03/17/12 | | PM PST | [...] | | | | | NEEDED, Starting [facility] 03/16/12 at | | | | | [...] | | | | First dose on [facility] 03/30/12 at | | PM PST | [...] | | | | | modification) on [facility] 03/23/12 at | | | | | [...]
--- OUTSIDE RECORDS SUMMARY | ~2019-02-11 | XMS | Encounter Summary ---
Demographics + + + | Address | [address] | | | [place] [address] | + + + | Home Phone | | + + + | Preferred Language | Unknown | + + + | Marital Status | | + + + | Gnosticist Affiliation | NRP | + + + | Race | White | + + + | Ethnic Group | Not or | + + + Author + + + | Author | [facility] | + + + | Organization | [facility] | + + + | Address | Unknown | + + + | Phone | Unavailable | + + + Support + + + + + | Name | Relationship | Address | Phone | + + + + + | Kole Hartley | [place] | [address] | | | | | [place], [place] | | | | | [address] | | + + + + + | aCmi Sawyer | ECON | Unknown | | + + + + + Care Team Providers + +------+ + | Care Search Consultant Name | Role | Phone | [...] Description | +--------+---------+ + + + | 04/24/ | Surgery | 6A Intra Op [facility] | Jf Wiseman, | RE-OPEN LAPAROTOMY, | | 2015 | | [facility] | [address] | evacuation of | | | | Admitting Desk | [address] | hematoma, control of | | | | Located on the 9 | [place], [place] | retroperitonieal | | | | floor [address] [facility] | [address] | hemorage, lysis of | | | | [address] | [phone] | adhesions, wound vac | | | | [place], [place] | | placement, and | | | | [address] | | abdominal wall | | | | | | closure | +--------+---------+ + + + Social History [...] might be different f rom the original. [facility] DEPARTMENT OF SURGERY EMERGENCY GENERAL SURGERY Division [...] continued to progress and is discharged to jail facility for [facility] care. Mackenzie Hartley is discharged in [...] 100mls three times a day. Destination: Destination: Half-Way Facility Thank you for the opportunity to [...] might be different f rom the original. [facility] DEPARTMENT OF SURGERY EMERGENCY GENERAL SURGERY Division [...] transferred to [facility] from [facility] for hanh gement of retroperitoneal bleed. She [...] diet Discharge Plan: [place] [phone] pager number [facility] A [phone] [facility] [phone] Jean-Claude Chaidez DM D, MD - 05/12/2014 7:56 AM [...] transferred to [facility] from [facility] for management of retroperitoneal bleed. S he [...] infection. Extremities: WWP Labs: Recent Labs 05/10/14 03305/11/1432705/12/14106 WBC 13.80* 14.89* 15.78* HB 9.8* 10.1* [...] transferred to [facility] from [facility] for management of retroperitoneal bleed. She is [...] M.D. [facility] 10A [address] [facility] [place] [address] This assessment and plan was formulated both [...] mg 5 mg feeding tube HS PRN Jean-Claude Chaidez DMD, MD - 05/11/2014 8:51 AM PST [...] transferred to [facility] from [facility] for management of retroperitoneal bleed. S he [...] transferred to [facility] from [facility] for management of retroperitoneal bleed. She is [...] M.D. [facility] [address] [facility] [address] [place] [address] This assessment and plan was formulated both [...] being active. Pt's has been at the [facility] supporting her. Pt is not shinto but appreciates support. Intervention: Provided a listening presence and explored pt's anxieties, worries and hopes. Plan: Spiritual care remains available. Yvette Jolly, [facility] / [facility] phone # [phone] pager # [phone] on-call # [phone] signed by Lulu Diaz at 05/10/2014 12:58 [...] transferred to [facility] from [facility] for management of retroperitoneal bleed. S he [...] transferred to [facility] from [facility] for management of retroperitoneal bleed. She is [...] regarding SNF placem ent. We are recommending [facility] since would be close to [facility] and she would benefit for marcela olsone PT, but is reluctant to have far [...] [facility] [address] [facility] [place] [address] This assessment and plan was [...] this note might be different from the [facility]. [facility] Department of Surgery [...] transferred to [facility] from [facility] for management of retroperitoneal bleed. S he [...] transferred to [facility] from [facility] for management of retroperitoneal bleed. She is [...] [facility] [address] [facility] [place] [address] This assessment and plan was [...] note might be different from the orig [facility]. [facility] Department of Surgery [...] transferred to [facility] from [facility] for management of retroperitoneal bleed. S he [...] Labs 04/25/14 1307 04/27/14 0433 04/29/14 0100 05/06/1431305/07/1431405/08/14 0031 05/08/14 0347 05/08/14 0621 NA -- [...] transferred to [facility] from [facility] for management of retroperitoneal bleed. She is [...] [facility]ALTH [facility]ENTER and she would benefit for marcela robles PT, but is reluctant to have far [...] [facility] 10A [address] [place] [address] This assessment and plan was formulated both [...] this note might be different from the [facility] Department of Surgery Progress Note Author: [...] transferred to [facility] from [facility] for management of retroperitoneal bleed. S he [...] Labs 04/25/14 1307 04/27/14 0433 04/29/14 0100 05/05/1434705/06/1431305/07/14 0017 05/07/145 05/07/14 0608 NA -- < > 152* < [...] transferred to [facility] from [facility] for management of retroperitoneal bleed. 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 S he [...] transferred to [facility] from [facility] for management of retroperitoneal bleed. She is [...] continued DHT,TF - Diet: NPO - per AUTOMOBILE DETAILER, high risk of aspiration - continue ice [...] [address]A [address] [place] [address] This assessment and plan was [...] note might be different from the orig [facility]. [facility] Department of Surgery [...] transferred to [facility] from [facility] for management of retroperitoneal bleed. S he [...] infection. Extremities: WWP Labs: Recent Labs 05/03/14 03505/04/1432905/05/14347 WBC 22.17* 24.21* 21.64* | 21.38* HB 9.1* 9.3* 9.5* | 9.5* HCT 29.5* 30.1* 30.8* | 30.8* PLT 203 251 296 | 276 Recent Labs 04/25/14 1307 04/27/14 0433 04/29/14 0100 05/03/14 0359 05/03/14 1853 05/04/140 05/05/14347 NA -- < > 152* < > [...] transferred to [facility] from [facility] for management of retroperitoneal bleed. She is [...] [address] [place] [address] This assessment and plan was formulated both [...] [facility] [address] [facility] [place] [address] Rosa Sauer MD - 05/04/2014 8:26 AM [...] at referring hospital. She was transferred to [facility] f or active hemorrhage and underwent IR [...] rounds. 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 She is [...] (Scheduled), Gayatri montemayor PA-C, 90 mg at 05/03/14 220 famotidine (PEPCID) tablet 20 mg, 20 mg, [...] transferred to [facility] from [facility] for management of retroperitoneal bleed. She has required repeated transfers to ICU for respiratory status. She has been diuresed ap propriately while in the ICU and O2 needs have decreased significantly. Will transfer to [facility] or, but need to keep a [...] Hannah MD General Surgery Resident, R3 Pager [phone] [facility] [address] [place] [address] Jf Jones MD - 05/03/2014 9:38 AM [...] Q6W Remicade- will consult GI in upcoming wee k regarding of timing of resuming remicade Severe malnutrition: - TF at goal, + BM Dysphagia: AUTOMOBILE DETAILER following- remains NPO Anasarca: compression socks,. Goal [...] Call team 01/11 for questions: Team Pager [phone] ATTENDING ADDENDUM: I saw and examined Mackenzie Hartley with DARLING Christensen on 05/03 and agree with the assessment and plan as outlined in this note and participated in the planning of care. Ms. Maulik rios ns critically ill in the ICU. She has had a good response to diuresis. We will work further on mobility and respiratory therapy. She has had some desaturations and we will keep her in the ICU for close monitoring. I spent 20 minutes providing critical care exclusive of procedures and exclusive of time sp ent by Erin Christensen PA-C. Jf Wiseman MD FACS search consultant Division of Trauma, Critical Care, and Acute Care Surgery [phone] Elda Emmanuel MD - 05/03/2014 3:49 AM PST EMERGENCY GENERAL SURGERY ICU PROGRESS NOTE: Attending Physician: Jf Wiseman MD 05/03/2014 ID: Mackenzie Hartley is a 58 year old female with COPD, Crohn's disease, chronic pain, and coagulopa thy resulting in splenic artery thrombosis while anticoagulated with warfarin transferred to [facility] from [facility] for management of retroperitoneal bleed. She is [...] 40 mg, 40 mg, feeding tube, BID (08 and 17), Sunshine Jennings-Kaiser, 40 mg at 05/02/14 1700 HYDROmorphone (DILAUDID) injection 0.2-1 mg, 0.2-1 mg, intravenous, Q2H PRN, Gayatri monzon PA-C, 0.3 mg at 05/02/14 220 ipratropium-albuterol (DUO-NEB) nebulizer solution 3 mL, 3 mL, inhalation, Q4H, Jf baltazar MD, 3 mL at 05/03/14 0008 menthol-zinc oxide (CALAZIME) topical paste, , topical, TID PRN, YOMAIRA LynchP metoprolol tartrate (LOPRESSOR) tablet 37.5 mg, 37.5 mg, feeding tube, BID, Jf Wiseman MD, 37.5 mg at 05/02/142000 nystatin (MYCOSTATIN) powder, , topical, BID, Andrew Vincent MD oxyCODONE (immediate release) (ROXICODONE) tablet 5-15 mg, 5-15 mg, feeding tube, Q4H PRN, Barbara Hoang MD, 5 mg at 05/03/14 0347 predniSONE (DELTASONE) tablet 15 mg, 15 mg, [...] transferred to [facility] from [facility] for management of retroperitoneal bleed. 1. Neuro: [...] this patient encounter. Elda Glez MD Pager [phone] Plastic Surgery R2 [facility] Diagnoses: 555.2 Crohn's disease of both [...] holding Q6W Remicade- will consult hematology in [facility] regarding of timing of resuming remicade Severe malnutrition: - TF at goal, + BM, Dysphagia: AUTOMOBILE DETAILER following- remains NPO Anasarca: compression socks,. Goal [...] Call team 01/11 for questions: Team Pager [phone] ATTENDING ADDENDUM: I saw and examined Mackenzie [...] Marge Harris PA-C. Jf Wiseman MD FACS search consultant Division of Trauma, Critical Care, and Acute Care Surgery [phone] ngeles Hannah MD - 05/02/2014 6:55 AM PST [facility] DEPARTMENT OF SURGERY EGS ICU Progress Note Division of Trauma and Critical Care ID: Mackenzie Hartley is a 58 year old female with COPD, Crohn's disease, chronic pain, and 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 while anticoagulated with warfarin transferre d to [facility] from [facility] for management of retroperitoneal bleed. She is [...] BID, Bartolo Thacker MD, 500 mg at 05/01/142151 bisacodyl (DULCOLAX) suppository 10 mg, 10 mg, [...] paste, , topical, TID PRN, Willow Jones Colovos, ACNP metoprolol tartrate (LOPRESSOR) tablet 37.5 mg, 37.5 mg, oral, BID, Marge Harris PA-C, 37.5 mg at 05/01/142151 nystatin (MYCOSTATIN) cream, , topical, QID PRN, [...] transferred to [facility] from [facility] for management of retroperitoneal bleed. Neuro: Minimize [...] Hannah MD General Surgery Resident, R3 Pager [phone] [place] [phone] Kristina, Angeles Hanna MD - 05/02/2014 2:14 AM PSTSignificant event Called to bedside due to patient in respiratory distress. Pt requiring oxymask at 15 L to m aintain sats at 94%, tachypneic to 30s, appears labored. VBG O2 57. CXR shows low lung volum es, pulm edema. Transferring to unit for resp distress. Will initiate NIPPV. Angeles Hannah MD General Surgery Resident, R3 Pager [phone] Jean-Claude Chaidez DMD, MD - 05/01/2014 10:[address] 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 She is [...] LABS: Lab Results Component Value Date WBC 21. 05/01/2014 HB 9.4 05/01/2014 HCT 29.6 05/01/2014 [...] transferred to [facility] from [facility] for management of retroperitoneal bleed. Overall, she is improving. However, remains tachycardic with leukocytosis - WBC [address] 05/01 showed - moderate ascites and pleural effusions and hematoma. Neuro: dilaudid IV PRN Speech: following continue daily to eval swallow CV: HD stable L EDI MANAGER PSA resolved Continue IV lasix today 20 [...] acute care hospitalization Jean-Claude Albrecht D.M.D., M.D. [facility] [place] [address] [place] [address] Jf Jones MD - 04/30/2014 11:08 AM [...] at referring hospital. She was transferred to [facility] fo r active hemorrhage and underwent IR [...] malnutrition: - pulled DHT- refusing replacement. Await AUTOMOBILE DETAILER eval if passes swallow will give chance to prove adequate po intake. Expect will require TFs again Dysphagia: await AUTOMOBILE DETAILER eval today. Cont meds and feed via [...] Call team 01/11 for questions: Team Pager [phone] ATTENDING ADDENDUM: I saw and examined Mackenzie [...] Marge Harris PA-C. 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 She is [...] PRN, Gayatri monzon PA-C, 0.5 mg at 04/30/14 99 menthol-zinc oxide (CALAZIME) topical paste, , topical, TID PRN, Willow L Colovos, ACNP metoprolol tartrate (LOPRESSOR) tablet 25 mg, 25 [...] transferred to [facility] from [facility] for management of retroperitoneal bleed. Overall, she is improving. However, remains tachycardic with leukocytosis -- difficult to t ease out if this is secondary to asplenia. Will obtain CT abd pelvis today to clarify. Neuro: dilaudid IV PRN and intermittent versed for sedation CV: HD stable L EDI MANAGER PSA resolved Pulm: titrate to O2 >92% [...] Hannah MD General Surgery Resident, R3 Pager [phone] [facility] [address] [place] [address] Aravind Morales MD - 04/29/2014 11:43 AM PSTICU Attending: I saw and examined Mackenzie Hartley ([id number]) with Erin Christensen PA-C on 04/29/14 and [...] critical care exclusive of time documented by valentin HASTINGS. Aravind Massey MD Licensed Land Surveyor Trauma, Critical Care & Acute Care Surgery [...] at referring hospital. She was transferred to [facility] fo r active hemorrhage. Hospital Day #6 [...] resolving cont current H2O via DHT Dysphagia: AUTOMOBILE DETAILER consulted, ice chips only. Cont meds and [...] Call team 01/11 for questions: Team Pager [phone] Chelly Blum MD,M PH - 04/28/2014 3:03 [...] at referring hospital. She was transferred to [facility] fo r active hemorrhage. Hospital Day #5 [...] Hyernatremia: resolving, reduce H2O to 30ml/hr Dysphagia: AUTOMOBILE DETAILER consulted, ice chips only. Cont meds and [...] Call team 01/11 for questions: Team Pager [phone] Angeles Acevedo MD - 04/28/2014 5:18 AM PST [facility] [place] DEPARTMENT OF SURGERY EGS ICU Progress Note Division of Trauma and Critical Care ID: Mackenzie Hartley is a 58 year old female with COPD, Crohn's disease, chronic pain, and 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 while anticoagulated with warfarin transferre d to [facility] from [facility] for management of retroperitoneal bleed. She is s/p ex lap, splenectomy, and packing with lap pads at OSH and from reopening of laparotomy, evacua tion of 2-3 L of intraabdominal hematoma, closure of open abdomen SUBJECTIVE: Extubated, neurologically doing much better. 3 L NC Underwent successful thrombin injection of L EDI MANAGER pseudoaneurysm by IR 04/26 MEDICATIONS: Current facility-administered [...] IV infusion, 20 mL/hr, intravenous, CONTINUOUS, Sunshine Jennings-Kaiser, Last Rate: 20 mL/hr at 04/27/141999, 20 mL/hr at 04/27/141999 famotidine (PEPCID) tablet 20 mg, 20 mg, oral, BID, Bartolo Thacker MD, 20 mg at 04/27 heparin bolus from continuous infusion 3,500 Units, 40 Units/kg, intravenous, NEEDED (REBECA HERNANDEZ), Nithya Bailey MD heparin bolus from continuous infusion 7,050 Units, 80 Units/kg, intravenous, NEEDED (REBECA DAVID), Nithya Bailey MD, 7,050 Units at 04/27/141401 heparin in D5W IV infusion 25,000 units/250 [...] transferred to [facility] from [facility] for management of retroperitoneal bleed. Neuro: dilaudid IV PRN and intermittent versed for sedation CV: HD stable Per vascular: arterial duplex of L EDI MANAGER to assess for stability of PSA shows [...] Hannah MD General Surgery Resident, R3 Pager [phone] [facility] [address] [address] Xin Irizarry M D - 04/27/2014 11:55 [...] diagnosti c imaging and laboratory study results EPIC DEPARTMENT: [id number] - [facility] Place of Service: - Inpatient Date of Service: 04-27-2014 Modifiers: GC - Resident Involved Suggested CPT: 47289 - Initial, Comp; Mod complex 50 min XIN AGEE MD [facility] [address] [place] [address] wRudy powers Do - 04/27/2014 11:55 AM PST Hematology Consult Progress Note Primary Service: EGS Primary Attending: Jf Wiseman MD Hospital Length of Stay: 4 Interval Events: - extubated - thrombin injection to EDI MANAGER pseudoaneurysm - heparin gtt started last night [...] [facility] Internal [facility] PGY3 Pager [phone] Mirela Josue MD - 04/27/2014 10:49 AM [...] underwent successful thrombin injection of the left EDI MANAGER pseudoaneurysm by IR last night. Heparin restarted [...] (or 3 results) Recent Labs 04/25/14235804/26/14 0907 04/26/142 04/27/14 0433 WBC 27.13* 27.68* 26.76* 25.98* [...] ultraso und guided thrombin injection of left EDI MANAGER pseudoanuerysm. Will order arterial duplex of left EDI MANAGER to assess for stability of pseudoaneurysm Monitor [...] - hemorrhage vs HCAP LUCY MARKS MD [facility] [address] [place] [address] This assessment and plan was formulated both independently and in conjunction with the [facility] ular Surgery Team as well as the attending provider of record above regarding management of this patient and their medical issues. It is accurate to the best of my knowledge, and is s ubject to modification based on clinical developments, new data, or final imaging results. [facility] staff I saw and evaluated the patient. I agree with the findings and the plan of care as jannie hair in the resident s note. Left femoral pseudoaneurysm appears resolved. Stable from [facility] standpoint. No further imaging required unless clinical status changes. Mirela Thompson M.D. [facility] Vascular Surgery [address] [facility] [place] [address] Email: [email or web address] Jf Jones MD - 04/27/2014 8:03 [...] at referring hospital. She was transferred to [facility] fo r active hemorrhage. Hospital Day #4 [...] H2O Hyernatremia: water 100ml/hr via DHT Dysphagia: AUTOMOBILE DETAILER consulted, ice chips only JULIANE: ATN from [...] Call team 01/11 for questions: Team Pager [phone] ATTENDING ADDENDUM: I saw and examined Mackenzie [...] Erin Christensen PA-C. Jf Wiseman MD FACS search consultant Division of Trauma, Critical Care, and Acute Care Surgery [phone] ankerElda MD - 04/27/2014 4:52 AM PST EMERGENCY GENERAL SURGERY ICU PROGRESS NOTE: Attending Physician: Jf Wiseman MD 04/27/2014 ID: Mackenzie Hartley is a 58 year old female with COPD, Crohn's disease, chronic pain, and coagulopa thy resulting in splenic artery thrombosis while anticoagulated with warfarin transferred to [facility] from [facility] for management of retroperitoneal bleed. She is [...] HR EVENTS: - Incidentally found to have EDI MANAGER pseudoaneurysm, injected with thrombin by IR - [...] Christensen PA-C, 15 mL a t 04/26/14 204 dextrose 5%-NaCl 0.45% IV infusion, 75 mL/hr, [...] transferred to [facility] from [facility] for management of retroperitoneal bleed. Neuro: oxy [...] this patient encounter. 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 Sharron Slade RN - 04/26/2014 5:17 PM PST Interventional Radiology Procedure Nursing Handoff Note Procedure: Thrombin injection into pseudoaneurysm Angio Attending:Dr. Lenny Calhoun MD (Fellow)/pager: Dr. Vang [phone] Medications Procedure Meds: Dilaudid IV 0.5mg Midazolam [...] at referring hospital. She was transferred to [facility] fo r active hemorrhage. Hospital Day #4 [...] Call team 01/11 for questions: Team Pager [phone] Angeles Acevedo MD - 04/26/2014 5:24 AM PST [facility] DEPARTMENT OF SURGERY EGS ICU Progress Note Division of Trauma and Critical Care ID: Mackenzie Hartley is a 58 year old female with COPD, Crohn's disease, chronic pain, and 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 while anticoagulated with warfarin transferre d to [facility] from [facility] for management of retroperitoneal bleed. She is [...] Marge Harris PA-C, 500 mg at 0 04/25/142147 bisacodyl (DULCOLAX) suppository 10 mg, 10 mg, rectal, DAILY PRN, Marge M Aghayan, PA-C chlorhexidine (PERIDEX) mouthwash 15 mL, 15 [...] Jones Colovos, ACNP, 15 mg at 04/25/14 0812 senna (SENOKOT) liquid 8.8 mg, 5 mL, feeding tube, BID, Marge Harris PA-C, 8.8 mg at 0 04/25/14 2148 zinc sulfate (ORAZINC) tablet 25 mg elemental, [...] transferred to [facility] from [facility] for management of retroperitoneal bleed. Neuro: dilaudid [...] Hannah MD General Surgery Resident, R3 Pager [phone] [facility] & [address] [place] [address] Nithya Andres MD - 04/25/2014 6:40 AM PSTTSICU Attending 04/25/14 58 yo woman critically ill with complex surgical and medical history, transferred to [facility] w ith intraabdominal and retroperitoneal hemorrhage 2 days ago. 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 She is [...] at 04/24/14 1700, 50 mL/hr at 04/24/14 170 midazolam (PF) (VERSED) injection 0.5-2 mg, 0.5-2 [...] Chris Harris PA-C, 25 mg elemental at 04/24/14 1500 OBJECTIVE: [...] transferred to [facility] from [facility] for management of retroperitoneal bleed. Neuro: dilaudid [...] Hannah MD General Surgery Resident, R3 Pager [phone] [facility] & [place] [id number] [facility] [address] ich Redding MD - 04/24/2014 9:21 AM PSTBRIEF OPERATIVE [...] extubate Initial surgical contact: Miladis at pager [phone] Nithya Andres MD - 04/24/2014 5:25 AM [...] removal, cordis- removal, IJ, port, ETT, NGT, abtheragopaley D: none Dispo: remains critically ill. Discussed with Dr. Bailey on TSICU rounds. 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 She is [...] transferred to [facility] from [facility] for management of retroperitoneal bleed. She is [...] Hannah MD General Surgery Resident, R3 Pager [phone] [facility] [place] [address] [place] [address] Rudy Parker M D - 04/23/2014 5:07 PM PSTBRIEF INTERVENTIONAL RADIOLOGY PROCEDURE NOTE DATE: 04/23/2014 5:07 PM PROCEDURE: Pelvic angiography with glue embolization PRE-PROCEDURE DIAGNOSIS: Retroperitoneal hematoma POST-PROCEDURE DIAGNOSIS: Same IR STAFF: Lenny IR FELLOW: Ciera ACCESS: L EDI MANAGER MEDICATIONS: Fentanyl IV 150 mcg Midazolam IV [...] +--------+ + + + | WELCOME TO [facility] | Routin | 05/04/2014 | | Results [...] | VASC LAB PORTABLE | Routin | 04/27/2014 | [...] +--------+ + + + | VASC LAB LOWER EXT | Routin | 04/26/2014 [...] CENTER [facility] | [address] | [place] [address] | | | SERVICESJANELL | [address] [...] MAR[facility] | [address] | [place], [place] | | | [facility] | [facility] | [address] | | | TESTS | | | [...] [facility] | [address] | [place] [address] | | | SERVICES, CORE | PARK [...] [facility] | [address] | [place] [address] | | | SERVICES, CORE | BERTRAM [...] | | | LABORATORY | | | NAMIBIAN | | | SERVICES, | | | [...] | + + + + + | [facility] | [address] | [place] [address] | | | SERVICES, CORE | BERTRAM [...] [facility] | [address] | [place], [place] | | | [facility]ARE | [address] | [address] | | | TESTS | | | [...] - [facility] | [address] | [place], [place] | | | [facility] | [address] | [address] | | | TESTS | | | [...] [facility] | [address] | [place] [address] | | | SERVICES, CORE | BERTRAM [...] CENTER [facility] | [address] | [place] [address] | | | SERVICES, CORE | PARK [...] | | | LABORATORY | | | NAMIBIAN | | | SERVICES, | | | [...] [facility]ENTER [facility] | [address] | [place] [address] | | | JANELL SHARP | [address] [...] [facility] | [address] | [place] [address] | | | SERVICES, JANELL | BERTRAM [...] [facility] | [address] | [place], [place] | | | [facility] | [facility] | [address] | | | TESTS | | | [...] [facility] | [address] | [place], [place] | | | [facility]ARE | [address] | [address] | | | TESTS | | | [...] [facility] | [address] | [place] [address] | | | SERVICES, CORE | PARK [...] | + + + + + | [facility] | [address] | [place] [address] | | | SERVICES, CORE | BERTRAM [...] | | | LABORATORY | | | NAMIBIAN | | | SERVICES, | | | [...] [facility] | [address] | [place] [address] | | | SERVICES, CORE | PARK [...] [facility] | [address] | [place] [address] | | | SERVICESJANELL | [address] [...] - [facility] | [address] | [place], [place] | | | [facility]ARE | [address] | [address] | | | TESTS | | | [...] S[facility]ERS | [address] | [place], [place] | | | [facility] | [address] | [address] | | | TESTS | | | [...] [facility] | [address] | [place], [place] | | | [facility]ARE | [address] | [address] | | | TESTS | | | [...] + | [facility] | [address] | [place], [place] | | | [facility]ARE | [address] | [address] | | | TESTS | | | [...] [facility] | [address] | [place] [address] | | | SERVICES, CORE | PARK [...] [facility] | [address] | [place] [address] | | | SERVICES, CORE | PARK [...] | | | LABORATORY | | | NAMIBIAN | | | SERVICES, | | | [...] CENTER [facility] | [address] | [place] [address] | | | JANELL SHARP | [address] [...] [facility] | [address] | [place] [address] | | | SERVICES, JANELL | [address] [...] MARILYN | [address] | [place], [place] | | | [facility] | [facility] | [address] | | | TESTS | | | [...] S[facility] | [address] | [place], [place] | | | [facility] | [facility] | [address] | | | TESTS | | | [...] + | [facility] | [address] | [place], [place] | | | [facility] | [address] | [address] | | | TESTS | | | [...] | + + + + + | [facility] | [address] | [place] [address] | | | SERVICES, CORE | BERTRAM [...] [facility] | [address] | [place] [address] | | | JANELL SHARP | [address] [...] | | | LABORATORY | | | NAMIBIAN | | | SERVICES, | | | [...] [facility] | [address] | [place] [address] | | | SERVICES, CORE | PARK [...] CENTER [facility] | [address] | [place] [address] | | | SERVICES, CORE | BERTRAM [...] S[facility]ERS | [address] | [place], [place] | | | [facility] | [address] | [address] | | | TESTS | | | [...] [facility] | [address] | [place], [place] | | | [facility] PO[facility] CARE | [address] | [address] | | | TESTS | | | [...] | + + + + + | [facility] | [address] | [place] [address] | | | SERVICES, CORE | [address] | | | + + + + + MAGNESIUM, PLASMA (05/08/2014 3:47 AM PST) + +-------+ + + + | Component | Value | Ref Range | Performed | Pathologist | | | | | At | Signature | + +-------+ + + + | MAGNESIUM,P | 2.1 | 1.8 - 2.5 mg/dL | [facility] [...] [facility] | [address] | [place] [address] | | | SERVICES, CORE | BERTRAM [...] | | | LABORATORY | | | NAMIBIAN | | | SERVICES, | | | [...] | + + + + + | [facility] | [address] | [place] [address] | | | SERVICES, CORE | BERTRAM [...] | + + + + + | [facility] | [address] | [place] [address] | | | SERVICES, CORE | PARK [...] S[facility]ERS | [address] | [place], [place] | | | [facility] | [facility] | [address] | | | TESTS | | | | + + + + + CAPILLARY BLOOD GLUCOSE (NO CHG) POC (05/07/2014 6:08 AM PST) + +---------+ [...] - [facility] | [address] | [place], [place] | | | [facility]ARE | [facility] | [address] | | | TESTS | | | [...] [facility] | [address] | [place] [address] | | | ARON, CORE | BERTRAM [...] [facility] | [address] | [place] [address] | | | SERVICES, CORE | PARK [...] | | | LABORATORY | | | NAMIBIAN | | | SERVICES, | | | [...] | + + + + + | [facility] | [address] | [place] [address] | | | SERVICES, CORE | BERTRAM [...] | + + + + + | [employer] [facility] [employer] [facility] | [address] | [place] [address] | | | SERVICES, CORE | BERTRAM [...] [facility] | [address] | [place], [place] | | | [facility] | [address] | [address] | | | TESTS | | | [...] | + + + + + | [facility] | [address] | [place] [address] | | | ARON, JANELL | [address] [...] [facility]ERS | [address] | [place], [place] | | | [facility] | [facility] | [address] | | | TESTS | | | [...] [facility] | [address] | [place], [place] | | | [facility] [place] | [address] | [address] | | | TESTS | | | [...] | + + + + + | [facility] | [address] | [place] [address] | | | SERVICES, CORE | [address] | | | + + + + + MAGNESIUM, PLASMA (05/06/2014 3:14 AM PST) + +-------+ + + + | Component | Value | Ref Range | Performed | Pathologist | | | | | At | Signature | + +-------+ + + + | MAGNESIUM,P | 2.0 | 1.8 - 2.5 mg/dL | [facility] [...] [facility] | [address] | [place] [address] | | | ARON, JANELL | PARK [...] | | | LABORATORY | | | NAMIBIAN | | | SERVICES, | | | [...] [facility] | [address] | [place] [address] | | | SERVICES, CORE | PARK [...] [facility] | [address] | [place] [address] | | | SERVICES, CORE | PARK [...] + + | [facility] | [address] | [place] [address] | | | SERVICES, CORE | PARK [...] [facility]ENTER [facility] | [address] | [place] [address] | | | SERVICES, CORE | BERTRAM [...] [facility] | [address] | [place] [address] | | | SERVICES, CORE | PARK [...] | | | LABORATORY | | | NAMIBIAN | | | SERVICES, | | | [...] | + + + + + | [facility] | [address] | [place] [address] | | | SERVICES, CORE | PARK [...] | + + + + + | [facility] | [address] | [place] [address] | | | SERVICES, CORE | BERTRAM [...] + + + + | [facility] | [address] | [place] [address] | | | [facility] | [address] | | | + + + [...] [facility] | [address] | [place] [address] | | | SERVICES, JANELL | PARK [...] [facility] | [address] | [place] [address] | | | SERVICES, CORE | BERTRAM [...] [facility] | [address] | [place] [address] | | | SERVICES, CORE | BERTRAM [...] [facility] | [address] | [place] [address] | | | SERVICES, CORE | PARK [...] | | | LABORATORY | | | NAMIBIAN | | | SERVICES, | | | [...] [facility] | [address] | [place] [address] | | | SERVICES, CORE | PARK [...] | + + + + + | [facility] | [address] | [place] [address] | | | SERVICES, CORE | PARK [...] [facility] | [address] | [place] [address] | | | SERVICES, CORE | [address] | | | + + + + + TELMA FARAH ONLY (05/03/2014 8:47 PM PST) + + [...] | + + + + + | [facility] | [address] | [place] [address] | | | SERVICES, CORE | BERTRAM [...] [facility] | [address] | [place] [address] | | | SERVICES, JANELL | BERTRAM [...] CENTER [facility] | [address] | [place] [address] | | | SERVICES, JANELL | [address] [...] [facility] | [address] | [place], [place] | | | [facility] | [address] | [address] | | | TESTS | | | [...] [facility] | [address] | [place] [address] | | | SERVICES, CORE | PARK [...] [facility] | [address] | [place] [address] | | | SERVICES, CORE | PARK [...] | | | LABORATORY | | | NAMIBIAN | | | SERVICES, | | | [...] | + + + + + | [facility] | [address] | [place] [address] | | | SERVICES, CORE | PARK [...] | + + + + + | [facility] | [address] | [place] [address] | | | SERVICES, CORE | [address] | | | + + + + + MAGNESIUM, PLASMA (05/02/2014 10:34 PM PST) + +-------+ + + + | Component | Value | Ref Range | Performed | Pathologist | | | | | At | Signature | + +-------+ + + + | MAGNESIUM,P | 2.0 | 1.8 - 2.5 mg/dL | [facility] [...] [facility] | [address] | [place] [address] | | | JANELL SHARP | PARK [...] | | | LABORATORY | | | NAMIBIAN | | | SERVICES, | | | [...] [facility] | [address] | [place] [address] | | | SERVICES, CORE | PARK [...] | | | LABORATORY | | | NAMIBIAN | | | SERVICES, | | | [...] + + | [facility] | [address] | [place] [address] | | | JANELL SHARP | [address] [...] [facility] | [address] | [place], [place] | | | THERAPY | [facility] | [address] | | + + + + + [...] [facility] | [address] | [place], [place] | | | THERAPY | [address] | [address] | | + + + + + [...] [facility] | [address] | [place] [address] | | | SERVICES, CORE | PARK [...] | + + + + + | [facility] | [address] | [place] [address] | | | SERVICES, CORE | BERTRAM [...] [facility] | [address] | [place] [address] | | | SERVICES, JANELL | [address] [...] | | | LABORATORY | | | NAMIBIAN | | | SERVICES, | | | [...] | + + + + + | [facility] | [address] | [place] [address] | | | SERVICES, CORE | PARK [...] | + + + + + | [facility] | [address] | [place] [address] | | | SERVICES, CORE | BERTRAM [...] + | [facility] | [address] | [place], [place] | | | CARDIOLOGY | [address] | [address] | | + + + + + X-RAY PORTABLE CHEST 1 VIEW (05/02/2014 2:11 AM PST) + + + + + + | Component | Value | Ref Range | Performed | Pathologist | | | | | At | Signature | + + + + + + | X-RAY | EXAM: NC CHEST 1 VIEW | | | | [...] [facility] | [address] | [place] [address] | | | SERVICES, CORE | BERTRAM [...] [facility] | [address] | [place], [place] | | | [facility] [place] | [address] | [address] | | | TESTS | | | [...] [facility] | [address] | [place], [place] | | | [facility] | [facility] | [address] | | | TESTS | | | [...] | + + + + + | [facility] | [address] | [place] [address] | | | SERVICES, CORE | [address] | | | + + + + + X-RAY PORTABLE CHEST 1 VIEW (05/01/2014 3:37 AM PST) + + + + + + | Component | Value | Ref Range | Performed | Pathologist | | | | | At | Signature | + + + + + + | X-RAY | EXAM: NC CHEST 1 VIEW | | | | [...] Bilateral | | | | | | [id number] | | | | | | pleural [...] [facility]ENTER [facility] | [address] | [place] [address] | | | SERVICES, CORE | PARK [...] | + + + + + | [facility] | [address] | [place] [address] | | | SERVICES, JANELL | [address] [...] | | | LABORATORY | | | NAMIBIAN | | | SERVICES, | | | [...] [facility] | [address] | [place] [address] | | | SERVICES, CORE | [address] | | | + + + + + INR (05/01/2014 2:45 AM PST) + +-------+ + + + | Component | Value | Ref Range | Performed | Pathologist | | | | | At | Signature | + +-------+ + + + | INR | 1.14 | 0.90 - 1.20 INR | [facility] | | | | | | LABORATORY [...] [facility] | [address] | [place] [address] | | | JANELL SHARP | [address] [...] | | POC | | | [facility] | | | | | | OF [...] + | [facility] | [address] | [place], [place] | | | [facility] PO[facility] OF CARE | [address] | [address] | | | TESTS | | | [...] + + + | X-RAY | STUDY: NC CHEST 1 VIEW | | | | [...] [facility] | [address] | [place] [address] | | | SERVICES, CORE | PARK [...] [facility] | [address] | [place] [address] | | | SERVICES, JANELL | BERTRAM [...] [facility] | [address] | [place] [address] | | | SERVICES, CORE | [address] [...] | | | LABORATORY | | | NAMIBIAN | | | SERVICES, | | | [...] | + + + + + | [facility] | [address] | [place] [address] | | | SERVICES, CORE | [address] [...] | | | LABORATORY | | | NAMIBIAN | | | SERVICES, | | | [...] [facility] | [address] | [place] [address] | | | ARON, JANELL | BERTRAM [...] [facility] | [address] | [place], [place] | | | [facility] | [facility] | [address] | | | TESTS | | | [...] [facility] | [address] | [place] [address] | | | SERVICES, CORE | [address] | | | + + + + + MAGNESIUM, PLASMA (04/29/2014 1:00 AM PST) + +---------+ + + + | Component | Value | Ref Range | Performed | Pathologist | | | | | At | Signature | + +---------+ + + + | MAGNESIUM,P | 1.7 (L) | 1.8 - 2.5 mg/dL | [facility] [...] [facility] | [address] | [place] [address] | | | SERVICES, CORE | PARK [...] | | | LABORATORY | | | NAMIBIAN | | | SERVICES, | | | [...] | + + + + + | [facility] | [address] | [place] [address] | | | SERVICES, CORE | BERTRAM [...] [facility] | [address] | [place] [address] | | | SERVICES, JANELL | [address] [...] | + + + + + | [facility] | [address] | [place] [address] | | | [facility], JANELL | [address] | | | [...] [facility] | [address] | [place], [place] | | | [facility] [place] | [facility] | [address] | | | TESTS | | | [...] [facility] | [address] | [place] [address] | | | SERVICES, CORE | PARK [...] [facility] | [address] | [place] [address] | | | SERVICES, CORE | PARK [...] [facility] | [address] | [place] [address] | | | SERVICES, CORE | PARK [...] [facility] | [address] | [place] [address] | | | SERVICES, CORE | PARK [...] | | | LABORATORY | | | NAMIBIAN | | | SERVICES, | | | [...] | + + + + + | [facility] | [address] | [place] [address] | | | SERVICES, CORE | [address] [...] | + + + + + | [facility] | [address] | [place] [address] | | | ARON, CORE | [address] [...] every AM Heparin, Either STD/LMW - | ARON, CORE | | Therapeutic Ranges: Heparin, Unfractionated: [...] [facility] | [address] | [place] [address] | | | JANELL SHARP | [address] [...] | + + + + + | [facility] | [address] | [place] [address] | | | SERVICES, CORE | [address] [...] | | | POC | | | OSCAR, POINT | | | | | | [...] [facility] | [address] | [place], [place] | | | [facility] | [facility] | [address] | | | TESTS | | | | + + + + + X-RAY ABD LTD FEEDING TUBE EVAL PORTABLE (04/27/2014 10:33 AM PST) + + + + + + | Component | Value | Ref Range | Performed | Pathologist | | | | | At | Signature | + + + + + + | X-RAY ABD | STUDY: NC ABD LTD | | | | | [...] | + + + + + | [facility] | [address] | [place] [address] | | | SERVICES, CORE | BERTRAM [...] | + + + + + | [facility] | [address] | [place] [address] | | | JANELL SHARP | BERTRAM [...] | + + + + + | [facility] | [address] | [place] [address] | | | SERVICES, CORE | BERTRAM [...] [facility] | [address] | [place] [address] | | | SERVICES, CORE | PARK [...] | | | LABORATORY | | | NAMIBIAN | | | SERVICES, | | | [...] + + | [facility] | [address] | [place] [address] | | | SERVICES, CORE | [address] [...] + +---------+ + + + | BETINA ARDON | Loretta Elkinso | | [facility] | | | | [...] [facility] | [address] | [place] [address] | | | SERVICES, JANELL | BERTRAM [...] | + + + + + | [facility] | [address] | [place] [address] | | | SERVICES, CORE | BERTRAM [...] | + + + + + | [facility] | [address] | [place] [address] | | | SERVICES, CORE | PARK [...] | + + + + + | [facility] | [address] | [place] [address] | | | SERVICES, CORE | [address] | | | + + + + + MAGNESIUM, PLASMA (04/26/2014 7:41 PM PST) + +-------+ + + + | Component | Value | Ref Range | Performed | Pathologist | | | | | At | Signature | + +-------+ + + + | MAGNESIUM,P | 2.0 | 1.8 - 2.5 mg/dL | [facility] | | | [facility] | | | [...] [facility] | [address] | [place] [address] | | | SERVICES, CORE | PARK [...] | | | LABORATORY | | | NAMIBIAN | | | SERVICES, | | | [...] | + + + + + | [facility] | [address] | [place] [address] | | | SERVICES, JANELL | BERTRAM [...] PRIMARY | | | | | | FERMENTER: Rudy | | | | | | [...] [facility] | [address] | [place], [place] | | | [facility] | [address] | [address] | | | TESTS | | | | + + + + + CHIKA MONTERROSO (04/26/2014 1:03 PM PST) + + [...] | + + + + + | [facility] | [address] | [place] [address] | | | SERVICES, CORE | BERTRAM [...] | | | | | | Kirstie Norwalk | | | | + + + [...] [facility] | [address] | [place] [address] | | | SERVICES, JANELL | BERTRAM [...] [facility] | [address] | [place] [address] | | | SERVICES, CORE | BERTRAM [...] | + + + + + | [facility] | [address] | [place] [address] | | | SERVICES, CORE | BERTRAM [...] | + + + + + | [facility] | [address] | [place] [address] | | | SERVICES, CORE | PARK [...] [facility] | [address] | [place] [address] | | | SERVICES, CORE | PARK [...] | | | LABORATORY | | | NAMIBIAN | | | SERVICES, | | | [...] + + | [facility] | [address] | [place] [address] | | | ARON, JANELL | BERTRAM [...] [facility] | [address] | [place] [address] | | | SERVICES, CORE | PARK [...] [facility] | [address] | [place] [address] | | | JANELL SHARP | PARK [...] - [facility] | [address] | [place], [place] | | | [facility] | [address] | [address] | | | TESTS | | | [...] | | | LABORATORY | | | NAMIBIAN | | | SERVICES, | | | [...] | + + + + + | [facility] | [address] | [place] [address] | | | JANELL SHARP | BERTRAM [...] [facility] | [address] [address] | [place], [place] | | | OSCAR POINT OF CARE | [address] | [address] | | | TESTS | | | [...] + +---------+ + + + | LORETOI T CMNT | No Hemo | | [...] [facility] | [address] | [place] [address] | | | SERVICES, CORE | BERTRAM [...] | + + + + + | [facility] | [address] | [place] [address] | | | SERVICES, CORE | BERTRAM [...] + + + + | PRODUCT | [id number] | | [facility] | | | UNIT [...] + + + + | BLOOD | [id number] | | [facility] | | | PRODUCT [...] DEPARTMENT OF | [address] | [place] [address] | | | PATHOLOGY | [address] [...] + + + + | PRODUCT | [id number] | | [facility] | | | UNIT [...] + + + + | BLOOD | [id number] | | [facility] | | | PRODUCT [...] [facility] DEPARTMENT | [address] | [place] [address] | | | PATHOLOGY | [address] [...] | + + + + + | [facility] | [address] | [place] [address] | | | SERVICES, CORE | PARK [...] | + + + + + | [facility] | [address] | [place] [address] | | | SERVICES, CORE | BERTRAM [...] | | | LABORATORY | | | NAMIBIAN | | | SERVICES, | | | [...] CENTER LABORATORY | [address] | [place] [address] | | | JANELL SHARP | BERTRAM [...] [facility] | [address] | [place] [address] | | | SERVICES, CORE [...] [facility] | [address] | [place] [address] | | | SERVICES, CORE | PARK [...] [facility] | [address] | [place] [address] | | | SERVICES, CORE | PARK [...] | [facility] | [address] | [place] [address] | | | SERVICES, JANELL | BERTRAM [...] [facility] | [address] | [place], [place] | | | [facility] MOORE OF CARE | [facility] | [address] | | | TESTS | | | [...] + + + | [facility] | [address] | [place], [place] | | | [facility] | [address] | [address] | | | TESTS | | | [...] CENTER LABORATORY | [address] | [place] [address] | | | SERVICES, CORE | PARK [...] | + + + + + | [facility] | [address] | [place] [address] | | | JANELL SHARP | BERTRAM [...] [facility] | [address] | [place] [address] | | | SERVICES, CORE | PARK [...] CENTER LABORATORY | [address] | [place] [address] | | | JANELL SHARP | [address] | | | + + + + + X-RAY PORTABLE CHEST 1 VIEW (04/24/2014 5:32 AM PST) + + + + + + | Component | Value | Ref Range | Performed | Pathologist | | | | | At | Signature | + + + + + + | X-RAY | STUDY: NC CHEST 1 VIEW | | | | [...] | + + + + + | [facility] | [address] | [place] [address] | | | SERVICES, JANELL | BERTRAM [...] | | | LABORATORY | | | NAMIBIAN | | | SERVICES, | | | [...] CENTER LABORATORY | [address] | [place] [address] | | | SERVICES, CORE | PARK [...] | + + + + + | [facility] | [address] | [place] [address] | | | SERVICES, CORE | PARK [...] | + + + + + | [facility] | [address] | [place] [address] | | | SERVICES, CORE | BERTRAM [...] [facility] | [address] | [place], [place] | | | THERAPY | [address] | [address] | | + + + + + [...] + + | [facility] | [address] | [place], [place] | | | THERAPY | [address] | [address] | | + + + + + [...] | | | LABORATORY | | | NAMIBIAN | | | SERVICES, | | | [...] the MDRD equation recommended by the | [facility] | | National Kidney Disease Education Program. [...] CENTER LABORATORY | [address] | [place] [address] | | | JANELL SHARP | BERTRAM [...] LABORATORY | [address] | [place] [address] | | | SERVICES, CORE | PARK [...] | + + + + + | [facility] | [address] | [place] [address] | | | SERVICES, CORE | BERTRAM [...] (L) | 36.0 - 46.0 % | [facility] | | | | | | LABORATORY [...] [facility] | [address] | [place] [address] | | | SERVICES, CORE | PARK [...] | + + + + + | [facility] | [address] | [place] [address] | | | SERVICES, CORE | BERTRAM [...] [facility] | [address] | [place] [address] | | | SERVICES, CORE | PARK [...] [facility] | [address] | [place] [address] | | | SERVICES, CORE | PARK [...] | | | LABORATORY | | | NAMIBIAN | | | SERVICES, | | | [...] | + + + + + | [facility] | [address] | [place] [address] | | | SERVICES, CORE | BERTRAM [...] CENTER LABORATORY | [address] | [place] [address] | | | ARON, JANELL | BERTRAM [...] + | [facility] | [address] | [place], [place] | | | [facility] | [facility] | [address] | | | TESTS | | | [...] PRIMARY | | | | | | FERMENTER: Rudy | | | | | | Fortino Vang | | | | | | ANGIOGRAPHY ATTENDING: | | | | | | Nahun Galvez, M.D. | | | | | | [...] 5 | | | | | | Tanzanian vascular sheath | | | | | [...] | | | | for a 5 Tanzanian | | | | | | IMAcatheter. [...] | | | | artery. A 3 Tanzanian | | | | | | microcatheterwas [...] + + | [facility] | [address] | [place], [place] | | | CARDIOLOGY | [address] | [address] | | + + + + + [...] + + + + | PRODUCT | [id number] | | [facility] | | | UNIT [...] + + + + | BLOOD | [id number] | | [facility] | | | PRODUCT [...] [facility] DEPARTMENT | [address] | [place] [address] | | | PATHOLOGY | [address] [...] + + + + | PRODUCT | [id number] | | [facility] | | | UNIT [...] + + + + | BLOOD | [id number] | | [facility] | | | PRODUCT [...] | + + + + + | [facility] | [address] | [place] [address] | | | PATHOLOGY | [address] [...] + + + + | PRODUCT | [id number] | | [facility] | | | UNIT [...] + + + + | BLOOD | [id number] | | [facility] | | | PRODUCT [...] [facility] DEPARTMENT | [address] | [place] [address] | | | PATHOLOGY | [address] [...] + + + + | PRODUCT | [id number] | | [facility] | | | UNIT [...] + + + + | BLOOD | [id number] | | [facility] | | | PRODUCT [...] DEPARTMENT OF | [address] | [place] [address] | | | PATHOLOGY | [address] [...] + + + + | PRODUCT | [id number] | | [facility] | | | UNIT [...] + + + + | BLOOD | [id number] | | [facility] | | | PRODUCT [...] DEPARTMENT | [address] | [place] [address] | | | PATHOLOGY | [address] [...] + + + + | PRODUCT | [id number] | | [facility] | | | UNIT [...] + + + + | BLOOD | [id number] | | [facility] | | | PRODUCT [...] DEPARTMENT OF | [address] | [place] [address] | | | PATHOLOGY | [address] | | | + + + + + X-RAY PORTABLE CHEST 1 VIEW (04/23/2014 11:41 AM PST) + + + + + + | Component | Value | Ref Range | Performed | Pathologist | | | | | At | Signature | + + + + + + | X-RAY | EXAM: NC CHEST 1 VIEW | | | | [...] | | | | signed / EMIL V | | | | | | ALISE [...] + + + + | PRODUCT | [id number] | | [facility] | | | UNIT [...] + + + + | BLOOD | [id number] | | [facility] | | | PRODUCT [...] DEPARTMENT OF | [address] | [place] [address] | | | PATHOLOGY | [address] [...] + + + + | PRODUCT | [id number] | | [facility] | | | UNIT [...] + + + + | BLOOD | [id number] | | [facility] | | | PRODUCT [...] DEPARTMENT OF | [address] | [place] [address] | | | PATHOLOGY | [address] [...] + + + + | PRODUCT | [id number] | | [facility] | | | UNIT [...] + + + + | BLOOD | [id number] | | [facility] | | | PRODUCT [...] OF | [address] | [place] [address] | | | PATHOLOGY | [address] [...] + + + + | PRODUCT | [id number] | | [facility] | | | UNIT [...] + + + + | BLOOD | [id number] | | [facility] | | | PRODUCT [...] | + + + + + | [facility] | [address] | [place] [address] | | | PATHOLOGY | [address] [...] + + + + | PRODUCT | [id number] | | [facility] | | | UNIT [...] + + + + | BLOOD | [id number] | | [facility] | | | PRODUCT [...] [facility] DEPARTMENT | [address] | [place] [address] | | | PATHOLOGY | [address] [...] + + + + | PRODUCT | [id number] | | [facility] | | | UNIT [...] + + + + | BLOOD | [id number] | | [facility] | | | PRODUCT [...] | + + + + + | [facility] | [address] | [place] [address] | | | PATHOLOGY | [address] [...] + + + + | PRODUCT | [id number] | | [facility] | | | UNIT [...] + + + + | BLOOD | [id number] | | [facility] | | | PRODUCT [...] [facility] DEPARTMENT | [address] | [place] [address] | | | PATHOLOGY | [address] [...] + + + + | PRODUCT | [id number] | | [facility] | | | UNIT [...] + + + + | BLOOD | [id number] | | [facility] | | | PRODUCT [...] | + + + + + | [facility] | [address] | [place] [address] | | | PATHOLOGY | [address] [...] + + + + | PRODUCT | [id number] | | [facility] | | | UNIT [...] + + + + | BLOOD | [id number] | | [facility] | | | PRODUCT [...] [facility] DEPARTMENT | [address] | [place] [address] | | | PATHOLOGY | [address] [...] + + + + | PRODUCT | [id number] | | [facility] | | | UNIT [...] + + + + | BLOOD | [id number] | | [facility] | | | PRODUCT [...] | + + + + + | [facility] | [address] | [place] [address] | | | PATHOLOGY | [address] [...] + + + + | PRODUCT | [id number] | | [facility] | | | UNIT [...] + + + + | BLOOD | [id number] | | [facility] | | | PRODUCT [...] [facility] DEPARTMENT | [address] | [place] [address] | | | PATHOLOGY | [address] [...] + + + + | PRODUCT | [id number] | | [facility] | | | UNIT [...] + + + + | BLOOD | [id number] | | [facility] | | | PRODUCT [...] DEPARTMENT OF | [address] | [place] [address] | | | PATHOLOGY | [address] [...] + + + + | PRODUCT | [id number] | | [facility] | | | UNIT [...] + + + + | BLOOD | [id number] | | [facility] | | | PRODUCT [...] [facility] DEPARTMENT | [address] | [place] [address] | | | PATHOLOGY | [address] [...] + + + + | PRODUCT | [id number] | | [facility] | | | UNIT [...] + + + + | BLOOD | [id number] | | [facility] | | | PRODUCT [...] | + + + + + | [facility] | [address] | [place] [address] | | | PATHOLOGY | [address] [...] [facility] | [address] | [place] [address] | | | SERVICES, CORE | PARK [...] [facility] | [address] | [place] [address] | | | SERVICES, CORE | PARK [...] most patients with mech. valves (2.5 | [facility], CORE | | - 3.5) INR APTT [...] CENTER LABORATORY | [address] | [place] [address] | | | JANELL SHARP | [address] [...] | | | LABORATORY | | | NAMIBIAN | | | SERVICES, | | | [...] [facility] | [address] | [place] [address] | | | SERVICES, CORE | PARK [...] [facility] | [address] | [place] [address] | | | SERVICES, CORE | PARK [...] [facility] | [address] | [place] [address] | | | SERVICES, CORE | PARK [...] CENTER LABORATORY | [address] | [place] [address] | | | JANELL SHARP | BERTRAM [...] [facility] | [address] | [place], [place] | | | OSCAR POINT OF CARE | [address] | [address] | | | TESTS | | | [...] | + + + + + | [facility] | [address] | [place] [address] | | | ARON, | [address] | | | | [...] CENTER LABORATORY | [address] | [place] [address] | | | SERVICES, | [address] [...] + + + + | PRODUCT | [id number] | | [facility] | | | UNIT [...] + + + + | BLOOD | [id number] | | [facility] | | | PRODUCT [...] | + + + + + | [facility] | [address] | [place] [address] | | | PATHOLOGY | [address] [...] + + + + | PRODUCT | [id number] | | [facility] | | | UNIT [...] + + + + | BLOOD | [id number] | | [facility] | | | PRODUCT [...] DEPARTMENT OF | [address] | [place] [address] | | | PATHOLOGY | [address] [...] + + + + | PRODUCT | [id number] | | [facility] | | | UNIT [...] + + + + | BLOOD | [id number] | | [facility] | | | PRODUCT [...] | + + + + + | [facility] | [address] | [place] [address] | | | PATHOLOGY | [address] [...] + + + + | PRODUCT | [id number] | | [facility] | | | UNIT [...] + + + + | BLOOD | [id number] | | [facility] | | | PRODUCT [...] DEPARTMENT OF | [address] | [place] [address] | | | PATHOLOGY | [address] [...] + + + + | PRODUCT | [id number] | | [facility] | | | UNIT [...] + + + + | BLOOD | [id number] | | [facility] | | | PRODUCT [...] | + + + + + | [facility] | [address] | [place] [address] | | | PATHOLOGY | [address] [...] + + + + | PRODUCT | [id number] | | [facility] | | | UNIT [...] + + + + | BLOOD | [id number] | | [facility] | | | PRODUCT [...] + | [facility] DEPARTMENT OF | [address] | [place] [address] | | | PATHOLOGY | [address] [...]
--- OUTSIDE RECORDS SUMMARY | ~2019-02-11 | XMS | Encounter Summary ---
Demographics + + + | Address | [address] | | | [place] [address] | + + + | Home Phone | | + + + | Preferred Language | Unknown | + + + | Marital Status | | + + + | Hindu Affiliation | NRP | + + + [...] [place], [place] | | | | | [address] | | + + + + + | Cami Sawyer | ECON | Unknown | | + + + + + Care Team Providers + +------+ + | Care Family Service Counselor Name | Role | Phone | + [...] | | | 2014 | Event | [facility] | [address] | | | | | Admitting Desk | Kristen [place], | | | | | Located on the | [place] [address] | | | | | floor [address] [facility] | [phone] | | | | | [address] | | | | | | [place], [place] | Rajiv Willingham MD | | | | | [address] | [facility] | | | | | | [facility] [address] | | | | | | [facility] | | | | | | [place] [address] | | | | | | [phone] | | | | | | | [...] by | | D - | "port"); [facility]; 01/27/17 | Alberto London RN | Discontinued After | | [facility] | (Automatic cleanup per RA | | Discharge | | l Line | 3006--contact admin for | | | | | questions.); 1622 (Automatic | | | | | cleanup per RA 3006--contact | | | | | admin for questions.); Yes; Other | | | | | (comment) ([facility]); No; Left; | | | | | [...]
--- OUTSIDE RECORDS SUMMARY | ~2019-02-11 | XMS | Encounter Summary ---
Demographics + + + | Address | [address] | | | [place] [address] | + + + | Home Phone [...] [place], [place] | | | | | [address] | | + + + + + | Cami Sawyer | ECON | Unknown | | + + + + + Care Team Providers + +------+ + | Care Imcu Specialist Name | Role | Phone | [...] 03/17/ | Surgery | 6A Intra Op [facility] | Mirela Salgado, | RIGHT POPLITEAL | | 2011 | | [facility] | MD [address] | ANTEROTIBIAL | | | | Admitting Desk | [address] | EMBOLECTOMY | | | | Located on the | [place], [place] | | | | | floor [address] | [address] | | | | | [address] | [phone] | | | | | [place], [place] | | | | | | [address] | | | +--------+---------+ + + + [...] [facility]. 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 At arrival to [facility] it was learned that she did NOT indeed have ischemic colitis. 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 She underwent embolectomy on 03/17, which resulted in methodist of flow and no loss of tissue [...] was agreed that the patient needed a medical terminologist treatment and we settled o n remicade. [...] flagyl - which was continued throughout the [facility]. However, vanc/cefepime/flagyl was used instead for a [...] 03/20 and an infectious work-up was [facility]. 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 Go to the hospital on Tuesday [...] forming. Please call your GI doctor in [facility] to arrange for your second infusion of [...] whether or not the INR is truly account executive sales representative of anticoagulation. In patients with [...] Xin Rust MD - 04/01/2012 10:33 PM PST3 Internal Medicine Attending Interval note [...] I NR on Tuesday. KIRIT RUST MD [facility] DEPARTMENT: [id number]- [facility] PPV Place of Service:- Inpatient Date of Service: 04/01/2012 CSN: [id number] Suggested Modifier: GC Resident Involved: Yes Suggested CPT: 48101- Dishcarge < 30 min Electronically signed by [...] questions. Debi Oconnor MD GI/Hepatology Fellow Pager: [phone] INTERVAL HISTORY: MRI abdomen shows no abscess; [...] risk of emboli, I called Dr. Rodriges (cotton ginner for her PCP) to coordinate f/u of [...] noted any additions above. KIRIT RUST MD [facility] DEPARTMENT: [id number]- [facility] PPV Place of Service:- Inpatient Date of Service: 03/31/2012 CSN: [id number] Suggested Modifier: GC Resident Involved: Yes Suggested CPT: 37870- Subsequent, Detailed/high complex, 35 min Davonte De [...] 19 Patient:Mackenzie Hartley, Attending: Xin Rust MD Author:Joaquin Rivera MS4 ID: Mackenzie Hartley is a 56 [...] state: J Gastroenterol. 2004 Oct;39(10):948-54. PubMed PMID: [id number]. Consulted Heme for further studies on platelet [...] no insurance. Wanting to go home for [place]. Nurse repor ts that she has admitted [...] income that does not q ualify for ojse. F/E/N Thrombosis ppx: Warfarin, Lovenox bridge Glucose: not indicated Diet: regular Code: Do Not Resuscitate/Do Not Intubate This patient was seen with [facility], refer to Attending and Resident notes for assessment and pl an. Nuñez [place], Sub-Location Director Pgr: [phone] Ajay De La Rosa MD - 03/30/2012 11:39 PM [facility]3 Internal Medicine Attending Interval note - LATE [...] bridge after d/c until coumading therapeutic with healthcare customer service through medication assistance program Hypoalbuminemia (03/14/2012) Assessment: [...] noted any additions above. KIRIT MD YOCASTA [facility] DEPARTMENT: [id number]- [facility] P[facility] Place of Service:- Inpatient Date of Service: 03/30/2012 CSN: [id number] Suggested Modifier: GC Resident Involved: Yes Suggested CPT: 96409- Subsequent, Detailed/high complex, 35 min Debi Yepez [...] follow closely Shaun SAEED GI Fellow Pg [phone] signed by Debi Oconnor MD at 03/30/2012 5:32 PM Jacoby Ko MD - 03/30/2012 10:25 AM PSTFormatting of this note might be different from the origi nal. [facility] DEPARTMENT OF SURGERY Daily Progress Note PROGRESS NOTE: Attending Physician: Xin Rust MD 03/31/2012 Subjective/Overnight Events: - latest CT shows resolution of abscess - no GI bleeding - no rectal/anal pain - tolerating reg diet MEDICATIONS: Reviewed in [facility] VITAL SIGNS: Refer to [facility] Intake/Output Summary (Last 24 hours) at 03/31/12 [...] concerns. Jacoby Tovar MD Surgery, R2 Diagnoses: [id number] Crohn disease This assessment and plan was [...] or exceptions in my pro su note. icole Joaquin Herron - 03/30/2012 7:51 AM PST Medicine Progress Note Refer to Attending and Resident Notes for Assessment and Plan Hospital Day # 18 Patient:Mackenzie Hartley, Attending: Xin Rust MD Author:Joaquin Herron VIVIANA Rivera ID: Mackenzie Hartley is a 56 y.o. [...] state: J Gastroenterol. 2004 Jan;39(10):948-54. PubMed PMID: [id number]. Consulted Heme for further studies on platelet [...] this note might be different from the [facility]. Transfer Accept Note Patient: Mackenzie [...] Nathan Weeks MD Internal Medicine PGY1 Pager [phone] Cecilia Baker MD - 03/29/2012 6:37 PM [...] team. Debi Oconnor MD GI Fellow Pager [phone] signed by Debi Oconnor MD at 03/29/2012 [...] planning) Debi Oconnor MD Fellow, Gastroenterology pager: [phone] signed by Debi Oconnor MD at 03/29/2012 [...] note for this encounter. OSBALDO GARCIA MD [facility] [address] [place] [address] Andrew Shah MD - 10:41 AM PST [facility] DEPARTMENT OF SURGERY Daily Progress Note PROGRESS NOTE: Attending Physician: Osbaldo Garcia MD 03/29/2012 Subjective/Overnight Events: - bowel prep initiated - Hct stable - no hematochezia or hemetemesis - MEDICATIONS: Reviewed in [facility] VITAL SIGNS: Refer to [facility] Intake/Output Summary (Last 24 hours) at 03/29/12 [...] GI Jacoby Tovar MD Surgery, R2 Diagnoses: [id number] Crohn disease This assessment and plan was [...] myself provided conscious sedation. OSBALDO GARCIA MD [facility] [address]A [address] [place] [address] I spent 35 min in critical care (not including procedures) [facility] DEPARTMENT: MICU, [facility]- [id number] Place of Service: - Date of Service: 03/29/2012 CSN: [id number] Modifiers:GC Resident Involved: yes Suggested CPT: 73202 Critical Care, Initial 30-74 minutes Carlton Godwin [...] day of transfer to MICU (1 05/29/11), [facility] informed us that according to [...] 0659 03/29/12 07 - 03/30/12 0659 Shift 4761-3880 3027-2105 2054-4410 Daily Total 1310-9286 8713-7388 5200-3377 Daily Total I N T A K E P.O. 1750 2525 4275 I.V. 934 9009 990 9103 Shift Total 934 3740 3450 8124 O U T P U T Urine 1075 2950 1875 5900 Urine 1075 2950 1875 5900 Other 575 731 350 9098 Measured Stool Output 350 425 775 Stool/Urine Mix 575 575 Shift Total 1650 3300 2300 7250 NET -171 443 6992 874 Intake/Output Summary (since admission) at 03/12/12 1910 Last data filed at 03/29/12 0547 Gross for the last 17 days Intake 79418 ml Output 03807 ml Net since Admission -67337 ml Physical Exam: General Appearance: middle aged [...] Carlton Betancourt DO PGY-1 Internal Medicine Pager [phone] Debi Yepez MD - 03/11 4:31 PM [...] questions. Debi Oconnor MD GI/Hepatology Fellow Pager: [phone] INTERVAL HISTORY: Episode of melena last night then bright red blood per rectum this morning Hemodynamically stable but decrease in hct from 30 to 24 Transferred to [facility] INPATIENT MEDICATIONS acetaminophen (aka TYLENOL) tablet 650 [...] patient in the past. OSBALDO GARCIA MD [facility] [address]/[place] [address] I spent 35 min in critical care (not including procedures) EPIC DEPARTMENT: [facility]- [id number] Place of Service: Date of Service: 03/28/2012 CSN: [id number] Modifiers:GC Resident Involved: yes Suggested CPT: 63193 Critical Care, Initial 30-74 minutes Carlton Godwin [...] 0659 03/28/12 07 - 03/29/12 0659 Shift 7902-6214 7239-9589 7955-3918 Daily Total 9205-6104 8114-3267 4538-9597 Daily Total I N T A K E P.O. 240 300 540 I.V. 404 404 934 934 Blood 1300 1300 Shift Total 517 100 2809 2244 934 934 O U T P [...] Gross for the last 16 days Intake 55510 ml Output 16272 ml Net since Admission -76363 ml Physical Exam: General Appearance: tearful middle [...] go but MICU attending conversation with osiris floresoggarrett decided to proceed with CT abdomen with [...] Carlton Betancourt DO PGY-1 Internal Medicine Pager [phone] Andrew Shah MD - 6:52 AM PST ATTENDING PHYSICIAN STATEMENT I saw Mackenzie Hartley and have confirmed the findings documented by Dr. Leonrad. I spoke with Dr Hennessy from the [...] Sukumar Zuniga DO Internal Medicine PGY-2 Pg [phone] Davonte De La Rosa MD - 03/27/2012 [...] noted any additions above. KIRITYann RUST MD [facility] DEPARTMENT: [id number]- [facility] P[facility] Place of Service:- Inpatient Date of Service: 03/27/2012 CSN: [id number] Suggested Modifier: Resident Involved: Yes Suggested CPT: 48434- Subsequent, Detailed/high complex, 35 min Marely Mccann [...] Deferred Ext: WWP Labs: Recent Labs Basename 03/27/1252603/26/126 03/25/12 0313 03/18/12 1458 03/12/12 1918 WBC [...] 3 results): Recent Labs Basename 03/27/1252603/26/126 03/25/12 0313 NA 143 142 141 K [...] [facility] discussed and [facility] Dr[facility] Hennessy. Please call with any questions. Debi Oconnor MD GI/Hepatology Fellow Pager: [phone] INTERVAL HISTORY: Imaging reviewed with radiology; too [...] Dung Victor - 2 11:30 AM PST AUDIO VISUAL ARTS DIRECTOR NOTE: Visited with Patient. 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 Shingle Grader team will follow as needed. Chaplain Dung Riley M.Div., [facility] [phone] Pager #[phone]; #[phone] Xin De La Rosa MD - 7:31 [...] Patient:Mackenzie Hartley, Attending: Xin Rust MD Author:Joaquin Gopal Rivera, MS4 ID:Mackenzie Hartley is a 56 [...] J Gastroenterol. 2004 Jan;39(10):948-54. PubMed PMID: [id number]. Consulted Heme for further studies on platelet [...] an. ---- Joaquin Rivera, MS4 Pager # [phone] signed by Xin Rust MD at 03/27/2012 [...] noted any additions above. KIRIT RUST MD [facility] DEPARTMENT: [id number]- [facility] Place of Service:- Inpatient Date of Service: 03/26/2012 CSN: [id number] Suggested Modifier: GC Resident Involved: Yes Suggested CPT: 13094- Subsequent, Detailed/high complex, 35 min aphael Norman [...] Body mass index is 27.84 kg/(m^2). 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 Raphael Norman MD Internal Medicine, PGY-2 [id number] Xin De La Rosa MD - 03/25/2012 [...] not larger Resident spoke with vice president of contracts who spoke with staff - they did [...] taking more PO if still low ask supply chain engineer to see Hypophosphatemia (03/14/2012) Assessment: rechecked and [...] noted any additions above. KIRIT MD YOCASTA [facility] DEPARTMENT: [id number]- [facility] P[facility] Place of Service:- Inpatient Date of Service: 03/25/2012 CSN: [id number] Suggested Modifier: Resident Involved: Yes Suggested CPT: 16401- Subsequent, Detailed/high complex, 35 min oaquin Rivera - 03/25/2012 1:07 PM PST Medicine Progress Note Refer to Attending and Resident Notes for Assessment and Plan Hospital Day # 13 Patient:Mackenzie Hartley, Attending: Xin Rust MD Author:Joaquin Rivera MS4 ID: Mackenzie Hartley is a 56 [...] hours (or 3 results) Recent Labs Basename 03/25/1231203/24/12 0532 03/23/12 0736 WBC 16.8* 17.6* 18.6* [...] J Gastroenterol. 2004 Jan;39(10):948- 54. PubMed PMID: [id number]. Consulted [facility] for further studies on platelet [...] an. ---- Joaquin Rivera, MS4 Pager # [phone] Ajay De La Rosa MD - 03/24/2012 [...] if larger - proceed with drainage this weekend spoke with GI and they will see [...] drainage of abscess and coordination of care [facility] radiology reviewing perirectal abscess imaging, options for intervention and need for rep eat imagin, also with GI on plan. I personally interviewed the patient, performed the gunter elements of the physical examinatio n, and personally formulated the assessment and plan with the resident. I agree with the MS4 s documentation and have noted any additions above. KIRIT MD YOCASTA [facility] DEPARTMENT: [id number]- [facility] PPV Place of Service:- Inpatient Date of Service: 03/24/2012 CSN: [id number] Suggested Modifier: Resident Involved: Yes Suggested CPT: 83203- Subsequent, Detailed/high complex, 35 min Davonte De [...] J Gastroenterol. 2004 Jan;39(10):948- 54. PubMed PMID: [id number]. Consulted Heme for further studies on platelet [...] an. ---- Joaquin Nicole, MS4 Pager # [phone] Ajay De La Rosa MD - 03/23/2012 [...] noted any additions above. KIRIT MD YOCASTA [facility] DEPARTMENT: [id number]- [facility] P[facility] Place of Service:- Inpatient Date of Service: 03/23/2012 CSN: [id number] Suggested Modifier: GC Resident Involved: Yes Suggested CPT: 90922- Subsequent, Detailed/high complex, 35 min Davonte De [...] to be done today JERI DIAZ MD [facility] [address] [place] [address] Xin De La Rosa MD - 03/23/2012 [...] state: J Gastroenterol. 2004 Jan;39(10):948-54. PubMed PMID: [id number]. Consulted Heme for further studies on platelet [...] an. ---- Joaquin Rivera, VIVIANA Pager # [phone] Ajay De La Rosa MD - 03/22/2012 [...] noted any additions above. KIRIT MD YOCASTA [facility] DEPARTMENT: [id number]- [facility] P[facility] Place of Service:- Inpatient Date of Service: 03/22/2012 CSN: [id number] Suggested Modifier: Resident Involved: Yes Suggested CPT: 17699- Subsequent, Detailed/high complex, 35 min ox, Jeri [...] carotid duplex ordered today JERI DIAZ MD [facility] [address]A [address] [place] [address] Xin De La Rosa MD - 03/22/2012 8:07 AM [place] personally interviewed the patient, performed the pertinent parts of the physical examination and personally formulated the plan with the resident. I agree with the MS4 documentation and have documented any additions or exceptions in my progress n ote. icole Nuñez Gopal - 03/22/2012 8:07 AM PST Medicine Progress Note Refer to Attending and Resident Notes for Assessment and Plan Hospital Day # 10 Patient:Mackenzie Hartley, Attending: Xin Rust MD Author:Joaquin Herron Nicole MS4 IID:Mackenzie Hartley is a 56 y.o. [...] PTT in mixing 1:1 Neg cardiolipin, neg xxee-I-vtmiyeegryls Legionella Agg Urine pending Cultures: BLOOD CULTURE [...] barber: J Gastroenterol. 2004 Jan;39(10):948-54. PubMed PMID: [id number]. - Consult Heme for further studies on [...] an. ---- Joaquin Rivera, MS4 Pager # [phone] Ajay De La Rosa MD - 03/21/2012 [...] BP 142/76 | Pulse 106[sinus tach per tele rn[ | Temp 37.7 C (99.9 F) | [...] -- also coordination of care with pharmD. [facility] DEPARTMENT: [id number]- [facility] P[facility] Place of Service:- Inpatient Date of Service: 03/21/2012 CSN: [id number] Suggested Modifier: AKIHL Resident Involved: Yes Suggested CPT: 96677- Subsequent, Detailed/high complex, 35 min Jennifer Tolentino [...] y.o. Female with multiple complex medical problems; [facility] Vascular Surge ry consulted due to [...] as new baseline Ok to discharge per [facility] Vascular Surgeons once ambulating and medical issues are stable. Will continue to follow while in patient. [facility] Vascular Surgery Clinic, [address] [address], phone number [phone] Please schedule followup appointment within 2-3 weeks of surgery for wound check. Dr. Sukumar Salgado, [facility] Vascular Surgery Attending. MERT OLIVA [facility] VASCULAR SURGERY [facility] [place] [address] hamMoses MD - 03/21/2012 6:55 AM PSTAgree with [...] w ill need to establish care with geological survey field assistant so that further treatment options can be [...] assessment and plan. Moses Anthony MD Neurology Location Director Pager [phone] oaquin Rivera - 02/2012 6:55 AM PST [...] an. ---- Joaquin Rivera, MS4 Pager # [phone] Xin De La Rosa M D - 03/20/2012 11:09 PM [facility]3 Internal Medicine Attending Interval note Hospital day: [...] noted any additions above. KIRIT MD YOCASTA [facility] DEPARTMENT: [id number]- [facility] PPV Place of Service:- Inpatient Date of Service: 03/20/2012 CSN: [id number] Suggested Modifier: Resident Involved: Yes Suggested CPT: 72882- Subsequent, Detailed/high complex, 35 min ennifer Staples, [facility] - 03/20/2012 3:36 PM PST . Vascular [...] y.o. Female with multiple complex medical problems; [facility] Vascular Surge ry consulted due to [...] chair as tolerated, RLE WBAT -Please obtain [facility] Lab Arterial duplex ultrasound/DELORIS of both legs prior to discharge as n ew baselineObtain ABIs with waveforms To establish new blood-flow baseline Ok to discharge per [facility] Vascular Surgeons once ambulating and medical issues are stable. Will continue to follow while in patient. [facility] Vascular Surgery Clinic, [address] [address], phone number [phone] Please schedule followup appointment within 2-3 weeks of surgery for wound check. Dr. Sukumar Salgado, [facility] Vascular Surgery Attending. MERT OLIVA [facility] VASCULAR SURGERY [address] [place] [address] aphael Norman - 7:58 AM PSTI agree [...] plan. Raphael Norman MD Internal Medicine, PGY-2 [id number] rinJoaquin dowd - 2011 7:58 AM PST Medicine Progress [...] an. ---- Joaquin Rivera, MS4 Pager # [phone] Juma Pimentel MD - 12/2011 3:35 PM [...] record is Dr. Salgado. JUMA CARRINGTON MD [facility] [address] [place] [address] Chary Moore M D - 03/19/2012 9:14 [...] note from 03/14 for details. Therefore the vnzw-yaqe-nymvv plan givens s been to allow her [...] plan. Lovenox bridge to be covered by [facility]. 9) Occlusive thrombus 10) Hypoalbuminemia 11) Hypophosphatemia 12) TIA (transient ischemic attack) - with PFO 13) PFO (patent foramen ovale) - plan is for lifelong coumadin. No additional benefit from device closure per CLOSURE I trial. Chary Doherty MD Chief Resident, Internal Medicine Pager: [phone] [facility] DEPARTMENT: Hosp- [id number] Place of Service: - Date of Service: 03/19/2012 CSN: [id number] Modifiers:GC Resident Involved: Yes Suggested CPT: 80727 Subsequent Visit Detailed/High complexity 35 min I have spent 35 minutes with the patient of which more than 50% was spent counseling hamMoses MD - 03/19/2012 6:45 AM PST General [...] will need to establish c are with geological survey field assistant so that further treatment options can be [...] assessment and plan. Moses Anthony MD Neurology Location Director Pager [phone] tJose Antonio prado MD - 03/18/2012 1:01 [...] HS, Dariela Santoyo MD, 15 mg at 1210/20 promethazine (aka PHENERGAN) injection 50 mg, 50 [...] perspective once ambulating JOSE ANTONIO TONEY MD Oscar, Chary Ferrer MD - 03/18/2012 12:20 PM PSTMEDICINE ATTENDING [...] outpt GI, plans to establish care in [place], perhaps Dr. Byrd. Transitioning to PO meds, [...] Doherty MD Chief Resident, Internal Medicine Pager: [phone] [facility] DEPARTMENT: Hosp- [id number] Place of Service: - Date of Service: 03/18/2012 CSN: [id number] Modifiers: Resident Involved: Yes Suggested CPT: 39387 Subsequent Visit Exp Prob Foc/Mod Complexity 25 [...] on file to calculate BMI. Date 03/18/12 0700 - 03/19/12 0659 Shift 9996-8402 5859-4651 7822-3043 24 Hour Total I N T A K E P.O. 620 620 I.V. 20 20 40 Shift Total 640 20 660 O U T P U T Urine 675 100 775 Other 400 400 Shift Total 840 869 7632 Weight (kg) 74.1 74.1 74.1 74.1 General: [...] refusing). Will need to establish care with geological survey field assistant so that further treatment options can be [...] in MS4 note. Moses Anthony MD Neurology Location Director Pager [phone] signed by Moses Asher MD at 03/18/2012 [...] % Intake/Output Summary (Last 24 hours) at 1208/12 0918 Last data filed at 03/18/12 0915 [...] an. ---- Nuñez Nicole, MS4 Pager # [phone] Chary Moore MD - 03/17/2012 8:39 PM [...] refusing). Will need to establish care with geological survey field assistant so this can be discussed as outpt [...] Doherty MD Chief Resident, Internal Medicine Pager: [phone] [facility] DEPARTMENT: Hosp- [id number] Place of Service: - Date of Service: 03/17/2012 CSN: [id number] Modifiers: Resident Involved: Yes Suggested CPT: 56851 Subsequent Visit Detailed/High complexity 35 min I [...] at end of case. MIRELA SALGADO MD [facility] [address] [address] [place] [address] ham, Gloria Lawson MD - 1 05/18/2011 [...] until she's therapeutic with her coumadin and [facility] has agreed to provide discounted INR [...] The preliminary data discussed by the team suzetet ws that PFO repair in the setting [...] y Gloria Anthony MD Neurology PGY1 Pager: [phone] oaquin Rivera - 10/2011 7:19 AM PST [...] or IR drainage. Likely responsible for sepsis.1 05/13 blood cultures ngtd. Clinically stable. -cipro 500mg, [...] an. ---- Joaquin Rivera, MS4 Pager # [phone] Chary Moore MD - 03/16/2012 12:56 PM [...] not henriquez to close her PFO especia caroline considering her current lack of insurance, but agree this is reasonable to consider down the road. Chary Doherty MD Chief Resident, Internal Medicine Pager: [phone] [facility] DEPARTMENT: Hosp- [id number] Place of Service: - Date of Service: 03/16/2012 CSN: [id number] Modifiers: Resident Involved: Yes Suggested CPT: 83048 Subsequent Visit Exp Prob Foc/Mod Complexity 25 min and 50132 Subseque nt Visit Detailed/High complexity 35 min [...] NPO p MN Sandoval Galvez MD, R-4 TPhamGloria MD - 03/16/2012 7:43 AM PST INPATIENT [...] nauseous after about 3 days of flagyl, vincenzoq uesting an increase in her frequency of [...] DNR/DNI Gloria Anthony MD Neurology PGY-1 Pager [phone] The patient was seen and discussed with [...] Doherty MD Chief Resident, Internal Medicine Pager: [phone] [facility] DEPARTMENT: Hosp- [id number] Place of Service: - Date of Service: 03/15/2012 CSN: [id number] Modifiers:GC Resident Involved: Yes Suggested CPT: 42268 Subsequent Visit Detailed/High complexity 35 min Dariela [...] plan. Dariela Santoyo MD Internal Medicine PGY-3 [id number] Daryl Singleton MD - 08/2011 7:18 PM PSTHematology Attending Consult Note: I saw and examined Ms. Hartely with the Hematology Fellow, Dr. Anthony Camejo and [facility] [place] the 5A Medicine unit. I participated in the gunter components of today's [facility] pital visit including review of the [...] re Daryl Arteaga MD, PhD Hematology Oncology [facility] DEPARTMENT: [id number] HEM FACULTY [facility] Place of Service: - Inpatient Date of Service: 03/15/2012 Modifiers: GC - Resident Involved Suggested CPT: 40253 - Subsequent, Detailed/High complex 35 min Anthony [...] anticoagulation clinic f/u closely; our clinic at [facility] cannot provide any suppli es -anticoagulation [...] as above. MD Hematology/Oncology Fellow Pager # [phone] signed by Daryl Arteaga MD at 03/15/2012 [...] Sachin raines call with any questions. Bigg Margaret, R1 Pager: [phone] INTERVAL HISTORY: - NAEO - VSS, AF [...] wishes to pro ceed. Mirela Samano M.D. [facility] Vascular Surgery [address] [facility], [address] [address] Email: [email or web address], Sandoval Barrett MD - 03/15/2012 9:30 AM [...] off to day. Jacoby Tovar MD Surgery [id number] signed by Sandoval Tovar MD at 03/15/2012 9:36 AM PSTPhaRenny hill MD - 03/14/2012 5:40 PM PSTPost Rounds [...] monitor Gloria Anthony MD Neurology PGY1 Pager [phone] Daryl Singleton MD - 07/2011 4:57 PM PSTHematology Attending Consult Note: I saw and examined Ms. Hartley with the Hematology Fellow, Dr. Anthony Camejo in the [address] [place] [address] unit. I participated in the gunter components [...] re Daryl Arteaga MD, PhD Hematology Oncology [facility] DEPARTMENT: [id number] HEM FACULTY [facility] Place of Service: - Inpatient Date of Service: 03/14/2012 Modifiers: GC - Resident Involved Suggested CPT: 19956 - Subsequent, Detailed/High complex 35 min Anthony [...] as above. MD Hematology/Oncology Fellow Pager # [phone] signed by Daryl Arteaga MD at 03/14/2012 [...] really for treatment Recommendations communicated with GM3 wireless internet installer. We will continue to follow. This [facility] and [facility] Dr[facility] Casiano. Please call with any questions. Bigg Robles, R1 Pager: [phone] Attending Attestation: I personally interviewed the patient, performed the relevant elements of the physical exami [facility], and formulated the assessment and plan with [...] for 38 years. My recommendation would be nadeem zhanginue Mackenzie on antibiotics. The low-dose prednisone can be maintained (and possibly slowl y tapered in the future) given likely adrenal insufficiency. However, the prolonged prednis one use will be unlikely to provide her mucosal healing or return of normal bowel function a nd will like pose risks associated with long-term corticosteroid use. 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 Gopal Casiano MD Record Center Coordinatorbehavioral scientist Department of Gastroenterology INTERVAL HISTORY: - NAEO [...] IMAGING Reviewed outside imaging with radiologist at [facility] and CT abd and pelvis shows [...] 3 results): Recent Labs Basename 03/14/12 0939 03/14/1260903/14/1252403/13/1234103/12/12200503/12/12 191 8 NA -- -- 139 143 [...] Becca Moncada MD General Surgery, R2 Pager: [phone] [facility] Staff I saw and evaluated the patient. I agree with the findings and the plan of care as jannie hair in the resident s note. Left foot warm and well perfused. Patient pain-free. Will repe at CTA to see if there has been any thrombus progression. No urgent need for surgery on left leg at this point. Mirela Samano M.D. [facility] Vascular Surgery [address] [place] [address], [address] [address] Email: [email or web address], Irene Vega MD - 03/14/2012 3:52 AM [...] at OSH. 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 She also had leukocytosis to 45 with a left shift, anemia, and thrombocytosis (platelets to 759). Her abdominal exam was not acute and she remained hemodynamically stable. Transferre d to [facility] for possible thrombectomy, initiated heparin therapy, [...] were obscured by overlying bowel gas. The kzz-tg-rwwdcy left external iliac arteries appear patent with [...] transient arterial occlusion. Reported CT findings at [facility] are also concerning for diffuse intra-abdominal arterial [...] CARLOS A SALCIDO MD R2, General Surgery [facility] 03/13/2012 1:20 PM Current Facility-Administered Medications Medication Dose Route Frequency Provider Last Rate Last Dose aspirin tablet 325 mg 325 mg Oral DAILY Taylor Macias MD cefTRIAXone (aka ROCEPHIN) IV 1 g 1 g Intravenous Q24H Bibiana C Tiave, PA-C 1 g at 1 05/13/11 2301 dextrose IV 25 mL 25 mL Intravenous PRN Bibiana C Reeve, PA-C esomeprazole (aka NEXIUM) IV 40 mg 40 mg Intravenous BID DARLING Jennings-C 40 mg at 03/13/12 0736 glucagon (aka GLUCAGEN) injection 1 mg 1 mg Intramuscular PRN Bibiana C Reeve, PA-C glucose chewable tablet 16 g 16 [...] Recorded LastCBG Intervention: Notified (Comment);Medication given (03/12/12 7223) CBC with diff last 72 hours (or [...] Becca Moncada MD General Surgery, R2 Pager: [phone] Vascular Staff I saw and evaluated the [...] at a later time. Mirela Samano M.D. [facility] Vascular Surgery [address] [facility], [address] [place] [address] Email: [email or web address] Richie Goodman MD - 06/2011 11:15 AM PSTI was present and rounded with the RANGELAND MANAGEMENT SPECIALIST today. I interviewed and examined the patient. I reviewed the history, as documented today. I agree with the RANGELAND MANAGEMENT SPECIALIST's assessmen t and plan. Pt is stable [...] visceral and aortic thrombus transfer red from [place] last night with concerns for ischemic bowel. 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 No evidence of bowel ischemia, bowel thicken ing likely Crohn's flare. 1. Crohn's flare: GI consult. Consider transfer to medicine for crohn's management with [facility] following 2. Multivessel occlusions/thrombii: vascular [...] Her abdominal exam does not reveal peritonitis. [facility] ular surgery recommended a heparin drip given her subtherapeutic INR. Hematology will be con sulted for her leukocytosis and declining platelet count in the setting of heparin therapy. Gastroenterology is making recommendations regarding acute management of her Crohn's disease . She will no longer require ICU care and she will transfer to the general medicine service. Jf Wiseman MD FACS interior design coordinator Division of Trauma, Critical Care, and Acute Care Surgery [id number] documented in this e ncounter Plan of [...] | + + + + + | [facility] | [address] | [place] [address] | | | JANELL SHARP | [address] | | | + + + + + RAPHAEL (03/31/2012 3:58 AM PST) + + + [...] LABORATORY | [address] | [place] [address] | | | SERVICES, CORE | [address] [...] | + + + + + | [facility] | [address] [facility] | [place] [address] | | | JANELL SHARP | [address] [...] | [facility] | [address] | [place] [address] | | | SERVICES, CORE | PARK [...] | + + + + + | [facility] | [address] | [place] [address] | | | SERVICES, CORE | PARK [...] LABORATORY | [address] | [place] [address] | | | SERVICES, JANELL | [address] [...] LABORATORY | [address] | [place] [address] | | | JANELL SHARP | [address] [...] 0.7 U/mL | LABORATORY | | | SERVICESJANELL | + + + + + + + + | Performing | Address | City/State/Zipcode | Phone Number | | Organization | | | | + + + + + | [facility] | [address] | [place] [address] | | | SERVICES, JANELL | [address] [...] LABORATORY | [address] | [place] [address] | | | SERVICES, CORE | PARK [...] LABORATORY | [address] | [place] [address] | | | SERVICES, CORE | [address] [...] LABORATORY | [address] | [place] [address] | | | SERVICES, CORE | PARK [...] | + + + + + | [facility] | [address] | [place] [address] | | | SERVICES, CORE | B[address]TRAM [...] | + + + + + | [facility] | [address] | [place] [address] | | | SERVICES, CORE | PARK [...] + | [facility] | [address] | [place] [address] | | | [place] | | | [...] + | [facility] | [address] | [place] [address] | | | [place] | | | [...] + | [facility] | [address] | [place] [address] | | | [place] | | | | + + + [...] | + + + + + | [facility] | [address] | [place] [address] | | | SERVICES, CORE | [address] [...] | + + + + + | [facility] | [address] | [place] [address] | | | SERVICES, CORE | [address] [...] | + + + + + | [facility] | [address] [facility] | [place] [address] | | | SERVICES, CORE | [address] [...] | + + + + + | [facility] | [address] | [place] [address] | | | ARON, JANELL | [address] | | | + + + + + COLONOSCOPY (03/29/2012 12:00 AM PST) + + + | Narrative | Performed At | + + + | | | | | | + + + + + | Procedure Note | + + | Other, Faculty - 03/29/2012 4:36 PM PST | + [...] Arias | | | | | | MGhulamDGhulam/Surgical | | | | | | Pathologist [...] | + + + + + | [facility] | [address] | [place] [address] | | | PATHOLOGY | [address] [...] LABORATORY | [address] | [place] [address] | | | SERVICES, CORE | PARK [...] | + + + + + | [facility] | [address] [facility] | [place] [address] | | | ARON, [facility] | [address] | | | + [...] SANDERS | [address] | [place], [place] | | | [facility] | [address] | [address] | | | TESTS | | | [...] | + + + + + | [facility] | [address] | [place] [address] | | | SERVICES, CORE | [address] [...] | + + + + + | [facility] | [address] | [place] [address] | | | ARON, CORE | [address] [...] | + + + + + | [facility] | [address] | [place] [address] | | | SERVICES, CORE | [address] [...] (H) | 60 - 99 mg/dL | [facility] - | | | GLUCOSE, | [...] SANDERS | [address] | [place], [place] | | | [facility] | [address] | [address] | | | TESTS | | | [...] | + + + + + | [facility] | [address] | [place] [address] | | | SERVICES, CORE | [address] [...] | + + + + + | [facility] | [address] [facility] | [place] [address] | | | SERVICES, CORE | [address] [...] LABORATORY | [address] | [place] [address] | | | SERVICES, CORE | PARK [...] | + + + + + | [facility] | [address] | [place] [address] | | | SERVICES, CORE | [address] | | | + + + + + X-RAY PORTABLE CHEST 1 VIEW (03/28/2012 6:28 AM PST) + + + + + + | Component | Value | Ref Range | Performed | Pathologist | | | | | At | Signature | + + + + + + | X-RAY | STUDY: DC CHEST 1 VIEW | | | | [...] | | | | | | Fuss 03/28/2012 10:17 AM | | | | [...] + + + + | PRODUCT | [id number] | | [facility] | | | UNIT [...] + + + + | BLOOD | 95155 | | [facility] | | | PRODUCT [...] [facility] | [address] | [place] [address] | | | PATHOLOGY | [address] [...] + + + + | PRODUCT | [id number] | | [facility] | | | UNIT [...] + + + + | BLOOD | 01245 | | [facility] | | | PRODUCT [...] + + + | [facility] | [address] | [place] [address] | | | PATHOLOGY | [address] [...] [facility] | [address] | [place], [place] | | | [facility]ARE | [address] | [address] | | | TESTS | | | [...] | + + + + + | [facility] | [address] [facility] | [place] [address] | | | JANELL SHARP | [address] [...] view image for the detailed interpretation from cVidya results. | CARDIOLOGY | + + + + + + + + | Performing | Address | City/State/Zipcode | Phone Number | | Organization | | | | + + + + + | [facility] | [address] | [place], [place] | | | CARDIOLOGY | [address] | [address] | | + + + + + [...] LABORATORY | [address] | [place] [address] | | | SERVICES, CORE | [address] [...] + + + + | PRODUCT | [id number] | | [facility] | | | UNIT [...] + + + + | BLOOD | 54264 | | [facility] | | | PRODUCT [...] + + + | [facility] | [address] | [place] [address] | | | PATHOLOGY | [address] [...] + + + + | PRODUCT | [id number] | | [facility] | | | UNIT [...] + + + + | BLOOD | 42803 | | [facility] | | | PRODUCT [...] | + + + + + | [facility] | [address] | [place] [address] | | | PATHOLOGY | [address] [...] LABORATORY | [address] | [place] [address] | | | SERVICES, CORE | PARK [...] [facility] | [address] | [place] [address] | | | JANELL SHARP | [address] [...] | + + + + + | [facility] | [address] | [place] [address] | | | JANELL SHARP | [address] [...] LABORATORY | [address] | [place] [address] | | | SERVICES, CORE | PARK [...] LABORATORY | [address] | [place] [address] | | | SERVICES, | [address] [...] LABORATORY | [address] | [place] [address] | | | SERVICES, | [address] [...] + + + + | PRODUCT | [id number] | | [facility] | | | UNIT [...] + + + + | BLOOD | 71557 | | [facility] | | | PRODUCT [...] + + + | [facility] | [address] | [place] [address] | | | PATHOLOGY | [address] [...] + + + + | PRODUCT | [id number] | | [facility] | | | UNIT [...] + + + + | BLOOD | 90533 | | [facility] | | | PRODUCT [...] DEPARTMENT OF | [address] | [place] [address] | | | PATHOLOGY | [address] [...] LABORATORY | [address] | [place] [address] | | | SERVICES, CORE | PARK [...] | + + + + + | [facility] | [address] | [place] [address] | | | SERVICES, CORE | P[address] [...] | + + + + + | [facility] | [address] | [place] [address] | | | SERVICES, CORE | P[address] [...] | + + + + + | [facility] | [address] | [place] [address] | | | SERVICES, CORE | P[address] [...] LABORATORY | [address] | [place] [address] | | | JANELL SHARP | [address] [...] LABORATORY | [address] | [place] [address] | | | SERVICES, CORE | PARK [...] LABORATORY | [address] | [place] [address] | | | SERVICES, CORE | PARK [...] [facility] | [address] | [place] [address] | | | SERVICES, CORE | PARK [...] 82 | 60 - 99 mg/dL | [facility] | | | PLASMA | | | [...] [facility] | [address] | [place] [address] | | | JANELL SHARP | [address] [...] LABORATORY | [address] | [place] [address] | | | SERVICES, CORE | PARK [...] [facility] | [address] | [place] [id number] | | | SERVICES, CORE | [address] [...] LABORATORY | [address] | [place] [address] | | | SERVICES, CORE | PARK [...] LABORATORY | [address] | [place] [address] | | | SERVICES, CORE | PARK [...] [facility] | [address] | [place] [address] | | | SERVICES, CORE | PARK [...] | + + + + + | [facility] | [address] | [place] [address] | | | JANELL SHARP | [address] [...] oral, | | | | | | [id number] hrs | | | | | | [...] | | + +---------+ + + | [facility] DEPARTMENT OF | | | | [...] LABORATORY | [address] | [place] [address] | | | SERVICES, CORE | PARK [...] | + + + + + | [facility] | [address] | [place] [address] | | | SERVICES, CORE | PARK [...] | + + + + + | [facility] | [address] | [place] [address] | | | SERVICES, CORE | [address] [...] | + + + + + | [facility] | [address] | [place] [address] | | | SERVICES, CORE | [address] [...] [facility] | [address] | [place] [address] | | | SERVICES, CORE | PARK [...] | | | | Final | | [place] | | | | CULTURE RESULT:< 10,000 [...] + | [facility] | [address] | [place] [address] | | | [facility] | | | | + + + [...] LABORATORY | [address] | [place] [address] | | | SERVICES, CORE | PARK [...] [facility] | [address] | [place] [address] | | | SERVICES, JANELL | [address] [...] + + | [facility] | [address] [facility] | [place] [address] | | | JANELL SHARP | [address] [...] | + + + + + | [facility] | [address] | [place] [address] | | | SERVICES, CORE | [address] | | | + + + + + 12 LEAD ECG (03/23/2012 4:00 PM PST) + + + + + + | Component | Value | Ref Range | Performed | Pathologist | | | | | At | Signature | + + + + + + | VENTRICULAR | 103 | BPM | [facility] DEPT | | | RATE | [...] view image for the detailed interpretation from cVidya results. | CARDIOLOGY | + + + + + + + + | Performing | Address | City/State/Zipcode | Phone Number | | Organization | | | | + + + + + | [facility] | [address] | [place], [place] | | | CARDIOLOGY | [address] | [address] | | + + + + + [...] LABORATORY | [address] | [place] [address] | | | SERVICES, CORE | PARK [...] [facility] | [address] | [place] [address] | | | SERVICES, CORE | [address] [...] | + + + + + | [facility] | [address] | [place] [address] | | | SERVICES, CORE | PARK [...] | + + + + + | [facility] | [address] | [place] [address] | | | SERVICES, JANELL | [address] [...] [facility] | | | | | | [facility] | | | | | | [place] [address] | | | | | | [phone][employer]. | | | | | | Kaitlin [...] + + | [facility] | [address] | [place], [place] | | | [facility] | | [address] | | + + + + + [...] | + + + + + | [facility] | [address] | [place] [address] | | | SERVICES, JANELL | [address] [...] | | | | | | Tiffanie 03/23/2012 8:47 AM | | | | [...] + + CULTURE, BLOOD BACTI & YEAST [facility] (03/22/2012 7:09 PM PST) + + + [...] | + + + + + | [facility] | [address] | [place] [address] | | | SERVICES, CORE | [address] [...] | + + + + + | [facility] | [address] | [place] [address] | | | SERVICES, CORE | [address] | | | + + + + + 12 LEAD ECG (03/22/2012 2:58 PM PST) + + + + + + | Component | Value | Ref Range | Performed | Pathologist | | | | | At | Signature | + + + + + + | VENTRICULAR | 87 | BPM | [facility] | | | RATE | | [...] | | | | | XIN GARZON (7473) | | | | | | on 03/22/2012 4:25:06 PM | | | | + + + + + + + + | Specimen | + + | | + + + + + | Narrative | Performed At | + + + | Please click | [facility] | | on view image for the detailed interpretation from cVidya results. | CARDIOLOGY | + + + + + + + + | Performing | Address | City/State/Zipcode | Phone Number | | Organization | | | | + + + + + | [facility] | [address] | [place], [place] | | | CARDIOLOGY | [address] | [address] | | + + + + + [...] | [address] | [place], [place] | | | [facility] | [facility] | [address] | | | TESTS | | | [...] [facility] | [address] | [place], [place] | | | [facility] OF CARE | [facility] | [address] | | | TESTS | | | [...] | + + + + + | [facility] | [address] | [place] [address] | | | SERVICES, CORE | [address] [...] LABORATORY | [address] | [place] [address] | | | SERVICES, CORE | PARK [...] + + | [facility] | [address] [facility] | [place] [address] | | | SERVICES, CORE | PARK [...] LABORATORY | [address] | [place] [address] | | | SERVICES, CORE | [address] [...] | + + + + + | [facility] | [address] | [place] [address] | | | SERVICES, CORE | [address] [...] (H) | 60 - 99 mg/dL | [facility] - | | | GLUCOSE, | [...] S[facility]ERS | [address] | [place], [place] | | | [facility] CARE | [address] | [address] | | | TESTS | | | [...] | + + + + + | [facility] | [address] | [place] [address] | | | ARON, JANELL | [address] [...] (H) | 60 - 99 mg/dL | [facility] - | | | GLUCOSE, | [...] + + + + + | [facility] | [address] | [place], [place] | | | [facility] POINT OF CARE | [address] | [address] | | | TESTS | | | [...] view image for the detailed interpretation from cVidya results. | CARDIOLOGY | + + + + + + + + | Performing | Address | City/State/Zipcode | Phone Number | | Organization | | | | + + + + + | [facility] | [address] | [place], [place] | | | CARDIOLOGY | [address] | [address] | | + + + + + CAPILLARY BLOOD GLUCOSE (NO CHG), ELLIOT (03/21/2012 9:58 AM PST) + +-------+ + [...] | [address] | [place], [place] | | | [facility] | [address] | [address] | | | TESTS | | | | + + + + + VASC LAB ANKLE BRACH INDICS W WAVEFORM BILAT (03/21/2012 8:17 AM PST) + + + + + + | Component | Value | Ref Range | Performed | Pathologist | | | | | At | Signature | + + + + + + | [facility] | ANKLE BRACHIAL INDEX | | [...] | | signed / Amalia Unger | Adam | | | | Jorge Preliminary / [...] | + + + + + | [facility] | [address] | [place] [address] | | | SERVICES, CORE | PARK [...] | + + + + + | [facility] | [address] | [place] [address] | | | SERVICES, CORE | [address] [...] | + + + + + | [facility] | [address] | [place] [address] | | | SERVICES, CORE | PARK [...] | + + + + + | [facility] | [address] | [place] [address] | | | SERVICES, CORE | [address] [...] + + + | [facility] | [address] | [place] [id number] | | | JANELL SHARP | [address] [...] GARCIA | | | | | | (3504) on 03/22/2012 | | | | | | 12:47:28 PM | | | | + + + + + + + + | Specimen | + + | | + + + + + | Narrative | Performed At | + + + | Please click | [facility] | | on view image for the detailed interpretation from [facility] results. | CARDIOLOGY | + + + + + + + + | Performing | Address | City/State/Zipcode | Phone Number | | Organization | | | | + + + + + | [facility] | [address] | [place], [place] | | | CARDIOLOGY | [address] | [address] | | + + + + + [...] | | | | | | Tiffanie 03/21/2012 9:47 AM | | | | [...] | + + + + + | [facility] | [address] | [place] [address] | | | SERVICES, CORE | BERTRAM [...] | [facility] | [address] | [place] [address] | | | JANELL SHARP | BERTRAM [...] 98 | 60 - 99 mg/dL | [facility] - | | | GLUCOSE, | [...] [facility] | [address] | [place], [place] | | | [facility] | [address] | [address] | | | TESTS | | | [...] view image for the detailed interpretation from [employer] results. | CARDIOLOGY | + + + + + + + + | Performing | Address | City/State/Zipcode | Phone Number | | Organization | | | | + + + + + | [facility] | [address] | [place], [place] | | | CARDIOLOGY | [address] | [address] | | + + + + + [...] SANDERS | [address] | [place], [place] | | | [facility] | [facility] | [address] | | | TESTS | | | [...] MARILYN | [address] | [place], [place] | | | [facility] | [address] | [address] | | | TESTS | | | | + + + + + X-RAY PORTABLE CHEST 1 VIEW (03/20/2012 10:13 AM PST) + + + + + + | Component | Value | Ref Range | Performed | Pathologist | | | | | At | Signature | + + + + + + | X-RAY | STUDY: DC CHEST 1 VIEW | | | | [...] [facility] | [address] | [place] [address] | | | SERVICES, JANELL | BERTRAM [...] | + + + + + | [facility] | [address] [facility] | [place] [address] | | | ARON, JANELL | BERTRAM [...] | + + + + + | [facility] | [address] | [place] [address] | | | JANELL SHARP | BERTRAM [...] | + + + + + | [facility] | [address] | [place] [address] | | | SERVICES, CORE | BERTRAM [...] (H) | 60 - 99 mg/dL | [facility] - | | | GLUCOSE, | [...] SANDERS | [address] | [place], [place] | | | [facility] | [address] | [address] | | | TESTS | | | [...] MARQUAM | [address] | [place], [place] | | | [facility] | [address] | [address] | | | TESTS | | | [...] | + + + + + | [facility] | [address] | [place] [address] | | | SERVICES, CORE | PARK [...] No | | | | | 03/21/2012 0014. | growth to date. | | | + + + + + + + + | Specimen | + + | Blood - Thumb - left | + + + + + + + | Performing | Address | City/State/Zipcode | Phone Number | | Organization | | | | + + + + + | [facility] | [address] | [place] [address] | | | JANELL SHARP | BERTRAM [...] MARQUAM | [address] | [place], [place] | | | [facility] | [address] | [address] | | | TESTS | | | [...] | | | | | ECGConfirmed by CINDA, | | | | | | LINDSEY [...] view image for the detailed interpretation from cVidya results. | CARDIOLOGY | + + + + + + + + | Performing | Address | City/State/Zipcode | Phone Number | | Organization | | | | + + + + + | [facility] | [address] | [place], [place] | | | CARDIOLOGY | [address] | [address] | | + + + + + [...] SANDERS | [address] | [place], [place] | | | [facility] | [address] | [address] | | | TESTS | | | [...] Kaya | | | | | | LizzAuthor: Kaya | | | | | | [...] - MARILYN | [address] | [place], [place] | | | [facility] | [address] | [address] | | | TESTS | | | [...] LABORATORY | [address] | [place] [address] | | | SERVICES, CORE | BERTRAM [...] [facility] | [address] | [place] [address] | | | SERVICES, CORE | PARK [...] (H) | 4.4 - 11.0 K/cu | [facility] | | | COUNT | | mm [...] [facility] | [address] | [place] [address] | | | SERVICES, CORE | PARK [...] | + + + + + | [facility] | [address] [facility] | [place] [address] | | | SERVICES, JANELL | BERTRAM [...] | | | | Final | | [place] | | | | CULTURE RESULT:No growth [...] + | [facility] | [address] | [place] [address] | | | [place] | | | | + + + + + UA, DIPSTICK ONLY (03/19/2012 1:24 AM PST) + + [...] | + + + + + | [facility] | [address] | [place] [address] | | | SERVICES, CORE | BERTRAM [...] LABORATORY | [address] | [place] [address] | | | SERVICES, CORE | PARK [...] [facility] | [address] | [place] [address] | | | JANELL SHARP | [address] | | | + + + + + CULTURE, BLOOD BACTI & YEAST [facility] (03/19/2012 1:10 AM PST) + + + [...] [facility] | [address] | [place] [address] | | | SERVICES, CORE | PARK [...] + | [facility] | [address] | [place] [address] | | | SERVICES, CORE | PARK [...] + + + + | [facility] | [address] | [place], [place] | | | [facility] | [address] | [address] | | | TESTS | | | [...] | + + + + + | [facility] | [address] | [place] [address] | | | SERVICES, CORE | BERTRAM [...] | [address] | [place], [place] | | | [facility] | [address] | [address] | | | TESTS | | | [...] Smear reviewed. | LABORATORY | | | JANELL SHARP | + + + + + + + + | Performing | Address | City/State/Zipcode | Phone Number | | Organization | | | | + + + + + | [facility] | [address] | [place] [address] | | | SERVICESJANELL | [address] [...] | + + + + + | [facility] | [address] | [place] [address] | | | SERVICES, CORE | BERTRAM [...] (H) | 60 - 99 mg/dL | [facility] - | | | GLUCOSE, | | [...] SANDERS | [address] | [place], [place] | | | [facility] | [address] | [address] | | | TESTS | | | | + + + + + OPERATION RECORD (03/18/2012 11:22 AM PST) + + | Transcriptions | + + | Mirela Salgado MD - 03/18/2012 8:38 AM PST Date: 03/17/2012ttending | | Surgeon: Mirela Salgado M.D.Strike Operations Officer(s): Sandoval | | Bennett Galvez M.D.Preoperative Diagnosis(es):Embolus, [...] | tolerated the procedure well.MIRELA SALGADO, [facility] Hospitalessor of SurgeryCOUNTS INCLUDE 234 BEDS AT [facility] / [id number] / | | [id number] / [address]14 / T: 03/17/2012 | |was no pulse. [...] | | | |MIRELA SALGADO MD | |chief arson division | | | |COUNTS INCLUDE 234 BEDS AT THE [facility] / | |[id number] / 920042 / 74208 / | | | | | + + HEPARIN, EITHER STANDARD / LMW, BLOOD (03/18/2012 10:26 AM RUST) + +-------+ + + + | Component [...] | + + + + + | [facility] | [address] | [place] [address] | | | ARON, CORE | BERTRAM [...] LABORATORY | [address] | [place] [address] | | | SERVICES, JANELL | BERTRAM [...] [facility] | [address] | [place] [address] | | | SERVICES, CORE | PARK [...] LABORATORY | [address] | [place] [address] | | | SERVICES, CORE | PARK [...] LABORATORY | [address] | [place] [address] | | | SERVICES, CORE | PARK [...] LABORATORY | [address] | [place] [address] | | | SERVICES, CORE | PARK [...] | + + + + + | [facility] | [address] | [place] [address] | | | SERVICES, CORE | BERTRAM [...] SANDERS | [address] | [place], [place] | | | [facility] | [address] | [address] | | | TESTS | | | [...] MARQUAM | [address] | [place], [place] | | | [facility] | [address] | [address] | | | TESTS | | | [...] (H) | 60 - 99 mg/dL | [facility] - | | | GLUCOSE, | | [...] MARQUAM | [address] | [place], [place] | | | [facility] | [address] | [address] | | | TESTS | | | [...] LABORATORY | [address] | [place] [address] | | | SERVICES, JANELL | BERTRAM [...] | + + + + + | [facility] | [address] [facility] | [place] [address] | | | SERVICES, CORE | PARK [...] | + + + + + | [facility] | [address] | [place] [address] | | | SERVICES, CORE | BERTRAM [...] [facility] | [address] | [place] [address] | | | ARON, JANELL | PARK [...] (H) | 60 - 99 mg/dL | [facility] - | | | GLUCOSE, | [...] - MARILYN | [address] | [place], [place] | | | [facility] | [address] | [address] | | | TESTS | | | [...] [facility] | [address] | [place] [address] | | | SERVICES, | [address] [...] LABORATORY | [address] | [place] [address] | | | SERVICES, | [address] [...] | + + + + + | [facility] | [address] | [place] [address] | | | JANELL SHARP | [address]TRAM [...] (H) | 60 - 99 mg/dL | [facility] - | | | GLUCOSE, | [...] + + + | [facility] | [address] | [place], [place] | | | [facility] | [address] | [address] | | | TESTS | | | [...] | | + +---------+ + + | [facility] DEPARTMENT OF | | | | [...] | [address] | [place], [place] | | | [facility] | [facility] | [address] | | | TESTS | | | [...] (H) | 60 - 99 mg/dL | [facility] - | | | GLUCOSE, | [...] DAVIDAM | [address] | [place], [place] | | | [facility] | [address] | [address] | | | TESTS | | | [...] | + + + + + | [facility] | [address] | [place] [address] | | | SERVICES, CORE | BERTRAM [...] + + | [facility] | [address] | [place], [place] | | | [facility] | [address] | [address] | | | TESTS | | | [...] | + + + + + | [facility] | [address] [facility] | [place] [address] | | | SERVICES, CORE | PARK [...] LABORATORY | [address] | [place] [address] | | | SERVICES, CORE | PARK [...] LABORATORY | [address] | [place] [address] | | | SERVICESJANELL | [address] [...] | + + + + + | [facility] | [address] | [place] [address] | | | SERVICES, CORE | BERTRAM [...] SANDERS | [address] | [place], [place] | | | [facility] | [address] | [address] | | | TESTS | | | [...] | [address] | [place], [place] | | | [facility] | [address] | [address] | | | TESTS | | | [...] | | | | | isaías / Laci | | | | | [...] | | + +---------+ + + | [facility] | | | | [...] Kirstie | | | | | | [place] | | | | + + + + + + + + | Specimen | + + | | + + + +---------+ + + | Performing | Address | City/State/Zipcode | Phone Number | | Organization | | | | + +---------+ + + | [facility] | | | | [...] MARQUAM | [address] | [place], [place] | | | [facility] | [address] | [address] | | | TESTS | | | [...] DAVID[facility] | [address] | [place], [place] | | | [facility] | [address] | [address] | | | TESTS | | | [...] | + + + + + | [facility] | [address] | [place] [address] | | | SERVICES, SPECIAL | PARK [...] + + | [facility] | [address] [facility] | [place] [address] | | | SERVICES, SPECIAL | BERTRAM [...] LABORATORY | [address] | [place] [address] | | | SERVICES, SPECIAL | PARK [...] LABORATORY | [address] | [place] [address] | | | SERVICES, SPECIAL | PARK [...] + + | [facility] | [address] [facility] | [place] [address] | | | ARON, JANELL | [address] [...] | + + + + + | [facility] | [address] | [place] [address] | | | SERVICES, CORE | BERTRAM [...] [facility] | [address] | [place] [address] | | | SERVICES, CORE | PARK [...] | + + + + + | [facility] | [address] [facility] | [place] [address] | | | ARON, JANELL | BERTRAM [...] MARILY[facility] | [address] | [place], [place] | | | [facility] | [address] | [address] | | | TESTS | | | [...] | + + + + + | [facility] | [address] | [place] [address] | | | SERVICES, CORE | BERTRAM [...] + + + + + | [facility] | [address] | [place], [place] | | | [facility] | [facility] | [address] | | | TESTS | | | [...] MARILYN | [address] | [place], [place] | | | [facility] | [address] | [address] | | | TESTS | | | [...] Davina | | | | | | Mcdonald | | | | + + + [...] [facility] | [address] | [place], [place] | | | [facility] | [address] | [address] | | | TESTS | | | [...] + + + + | PRODUCT | [id number] | | [facility] | | | UNIT [...] + + + + | BLOOD | 55124 | | [facility] | | | PRODUCT [...] + + + | [facility] | [address] | [place] [address] | | | PATHOLOGY | [address] [...] + + + + | PRODUCT | [id number] | | [facility] | | | UNIT [...] + + + + | BLOOD | 84923 | | [facility] | | | PRODUCT [...] DEPARTMENT OF | [address] | [place] [address] | | | PATHOLOGY | [address] [...] LABORATORY | [address] | [place] [address] | | | SERVICES, CORE | PARK [...] + | [facility] | [address] | [place], [place] | | | [facility] | [address] | [address] | | | TESTS | | | [...] SANDERS | [address] | [place], [place] | | | [facility] | [address] | [address] | | | TESTS | | | [...] LABORATORY | [address] | [place] [address] | | | SERVICES, CORE | BERTRAM [...] LABORATORY | [address] | [place] [address] | | | SERVICES, CORE | PARK [...] | + + + + + | [facility] | [address] | [place] [address] | | | SERVICES, CORE | [address] [...] | | If supplementation does | | [facility] | | | | not correct consider [...] if | | | | | | [id number] >400: | | | | | | [...] + | [facility] | [address] | [place] [address] | | | [place] | | | [...] LABORATORY | [address] | [place] [address] | | | SERVICES, CORE | PARK [...] [facility] | [address] | [place] [address] | | | SERVICES, CORE | PARK [...] | + + + + + | [facility] | [address] | [place] [address] | | | SERVICES, CORE | BERTRAM [...] - | | | | | | [place] | | + + + + + + + + | Specimen | + + | Blood - Blood | + + + + + + + | Performing | Address | City/State/Zipcode | Phone Number | | Organization | | | | + + + + + | [facility] | [address] | [place] [address] | | | [place] | | | | + + + [...] [facility] | [address] | [place], [place] | | | [facility] | [address] | [address] | | | TESTS | | | [...] LABORATORY | [address] | [place] [address] | | | SERVICES, CORE | PARK [...] | + + + + + | [facility] | [address] | [place] [address] | | | SERVICES, CORE | BERTRAM [...] - [facility] | [address] | [place], [place] | | | [facility] | [address] | [address] | | | TESTS | | | [...] | + + + + + | [facility] | [address] | [place] [address] | | | SERVICES, CORE | BERTRAM [...] gas. | | | | | | Gqnkgf-id-myphip left | | | | | | [...] HOOK, | | | | | | Za. I have personally | | | | [...] SANDERS | [address] | [place], [place] | | | [facility] | [address] | [address] | | | TESTS | | | [...] % | [facility] | | | | [facility],[address] | | REG UNIV | | | | [place], [facility] [place] | | [facility] | | | | [address] | | | | | | [phone][employer]. | | | | | | Kaitlin [...] [facility] | [address] | [place], [place] | | | UNIV PTH - [facility] | | [address] | | + + + + + [...] | + + + + + | [facility] | [address] [facility] | [place] [address] | | | SERVICES, CORE | BERTRAM [...] | + + + + + | [facility] | [address] | [place] [address] | | | SERVICES, CORE | [address] | | | + + + + + CAPILLARY BLOOD GLUCOSE (NO CHG), ELLIOT (03/13/2012 8:02 AM PST) + +---------+ + [...] [facility] | [address] | [place], [place] | | | [facility] | [address] | [address] | | | TESTS | | | [...] | + + + + + | [facility] | [address] | [place] [address] | | | ARON, CORE | PARK [...] | + + + + + | [facility] | [address] | [place] [address] | | | SERVICES, CORE | BERTRAM [...] (H) | 60 - 99 mg/dL | [facility] - | | | GLUCOSE, | [...] + + + | [facility] | [address] | [place], [place] | | | [facility] | [address] | [address] | | | TESTS | | | [...] | + + + + + | [facility] | [address] | [place] [address] | | | SERVICES, CORE | PARK [...] | + + + + + | [facility] | [address] | [place] [address] | | | SERVICES, CORE | BERTRAM [...] | + + + + + | [facility] | [address] | [place] [address] | | | SERVICES, CORE | [address] | | | + + + + + PHOSPHORUS, PLASMA (03/13/2012 3:42 AM PST) + +---------+ + + + | Component | Value | Ref Range | Performed | Pathologist | | | | | At | Signature | + +---------+ + + + | PHOSPHORUS, | 1.1 (L) | 2.4 - 4.7 mg/dL | [facility] | | | PLASMA | | | [...] | + + + + + | [facility] | [address] | [place] [address] | | | SERVICES, CORE | PARK [...] LABORATORY | [address] | [place] [address] | | | SERVICES, CORE | PARK [...] | + + + + + | [facility] | [address] | [place] [address] | | | SERVICES, CORE | PARK [...] + | [facility] | [address] | [place] [address] | | | [place] | | | [...] | | | Final CULTURE | | [place] | | | | RESULT:Salmonella, | | [...] + | [facility] | [address] | [place] [address] | | | [place] | | | [...] | + + + + + | [facility] | [address] | [place] [address] | | | SERVICES, CORE | [address]ERTRAM [...] (H) | 60 - 99 mg/dL | [facility] - | | | GLUCOSE, | [...] SANDERS | [address] | [place], [place] | | | [facility] | [address] | [address] | | | TESTS | | | [...] view image for the detailed interpretation from Slyet results. | CARDIOLOGY | + + + + + + + + | Performing | Address | City/State/Zipcode | Phone Number | | Organization | | | | + + + + + | [facility] | [address] | [place], [place] | | | CARDIOLOGY | [address] | [address] | | + + + + + [...] LABORATORY | [address] | [place] [address] | | | SERVICES, CORE | [address] | | | + + + + + CULTURE, BLOOD BACTI & YEAST [facility] (03/12/2012 9:50 PM PST) + + [...] | + + + + + | [facility] | [address] | [place] [address] | | | SERVICES, CORE | [address]TR[address] [...] LABORATORY | [address] | [place] [address] | | | SERVICES, CORE | PARK [...] | + + + + + | [facility] | [address] [facility] | [place] [address] | | | SERVICES, CORE | [address] [...] - MAR[facility] | [address] | [place], [place] | | | [facility] | [facility] | [address] | | | TESTS | | | [...] HYPOCHROMIA | 1+ (10-25cells/HPF) | (none) | [facility] | | | | | | LABORATORY [...] [facility] | [address] | [place] [address] | | | SERVICES, CORE | PARK [...] LABORATORY | [address] | [place] [address] | | | SERVICES, CORE | PARK [...] LABORATORY | [address] | [place] [address] | | | SERVICES, | [address] [...] | + + + + + | [facility] | [address] [facility] | [place] [address] | | | SERVICES, | [address] [...] | + + + + + | [facility] | [address] | [place] [address] | | | SERVICES, CORE | [address] [...] LABORATORY | [address] | [place] [address] | | | JANELL SHARP | [address] [...] | + + + + + | [facility] | [address] | [place] [address] | | | JANELL SHARP | [address] [...]
--- OUTSIDE RECORDS SUMMARY | ~2019-02-11 | XMS | Clinical Summary ---
Demographics + + + | Address | [address] | | | [place] [address] | + + + | Home Phone | | + + + | Preferred Language | Unknown | + + + | Marital Status | | + + + | Mu-Ism Affiliation | NRP | + + + | Race | White | + + + | Ethnic Group | Not or | + + + Author + + + | Author | [facility] | + + + | Organization | [facility] | + + [...] [place], [place] | | | | | [address] | | + + + + + | Cami Sawyer | ECON | Unknown | | + + + + + Care Team Providers + +------+ + | Care Squeegee Finisher Name | Role | Phone | + +------+ + | Aren Rose DO | PCP | | + +------+ + Source Comments [facility] is fully live on both EpicCare Ambulatory and EpicCare InPatient.[facility] Allergies + + + + + + [...] + + | Overview: Vaccinations given at [facility] pneumonia and flu and | | at [facility] HIB and meningeal coccal 04/25 [...] | | | | | | | [address] | | + +--------+ +--------+ + +--------+ | [employer] | [employer] | xxxxxxxxx-x | 04/11/19 | [phone] | [address] | Indemn | | RETIRED PEOPLE | | | 13-Pre | 9 | [phone] | ity | | | | | sent | | [place], [place] | | | | | | | | [address] | | + +--------+ +--------+ + +--------+ [...] | 1956 | [phone] | [place] [address] | | | bianca | | | [address] (Home) | | | | | | | [phone] | | | | | | | [...]
--- OUTSIDE RECORDS SUMMARY | ~2019-02-11 | XMS | Clinical Summary ---
Demographics + + + | Address | [address] | | | [place] [address] | + + + | Home Phone [...] | Author | [facility] (Historical as of | | | 11-25-18) | + + + | Organization | [facility] [employer] [facility] (Historical as of | | | 11-25-18) | + + + | Address | [...] Team Providers + +------+ + | Care Mine Boss Name | Role | Phone | + +------+ + PP | Unavailable | + +------+ + Allergies [...] (See Comments) | Medium | 04/12/19 | Tendinitis. Was | | | | | 15 | prescribed 02/15/17 | | | | | | and tolerated | | | | | | without issues | + + + + + + | Penicillins | Nausea and Vomiting | Low | 04/13/19 | | | | | | 15 | | + + + + + + | Metoclopramide | Agitation | Medium | 04/12/19 | Unknown | | | | | 15 | | + + + + + + Current Medications + + + +---------+------+------+-------+ | Prescription | Sig. | Disp. | Refills | Star | End | Statu | | | | | | t | Date | s | | | | | | Date | | | + + + +---------+------+------+-------+ | omeprazole | Take 40 mg by mouth | | | | | Activ | | (PRILOSEC) 40 MG | 2 (two) times daily. | | | | | e | | capsule | | | | | | | + + + +---------+------+------+-------+ | predniSONE | Take 15 mg by mouth | | | | | Activ | | (DELTASONE) 10 MG | daily. Indications: | | | | | e | | tabletIndications: | 15 mg | | | | | | | 15 mg | | | | | | | + + + +---------+------+------+-------+ | promethazine | Take 25 mg by mouth | | | | | Activ | | (PHENERGAN) 25 MG | every 6 (six) hours | | | | | e | | tablet | as needed for | | | | | | | | Nausea. | | | | | | + + + +---------+------+------+-------+ | metoprolol | Take 2 tablets by | | | 08/0 | | Activ | | (LOPRESSOR) 25 MG | mouth 2 (two) times | | | 2/20 | | e | | tablet | daily. | | | 15 | | | + + + +---------+------+------+-------+ | gabapentin | Take 300 mg by mouth | | | 05/1 | | Activ | | (NEURONTIN) 300 MG | 3 (three) times | | | 2/20 | | e | | capsule | daily. | | | 16 | | | + + + +---------+------+------+-------+ | Multiple | Take 1 tablet by | | | | | Activ | | Vitamins-Minerals | mouth daily. | | | | | e | | (MULTIVITAMIN WITH | | | | | | | | MINERALS) tablet | | | | | | | + + + +---------+------+------+-------+ | Melatonin 5 MG | Take 10 mg by mouth | | | | | Activ | | CHEW | nightly as needed. | | | | | e | + + + +---------+------+------+-------+ | Na sulfate-K | Take 12 oz by mouth | 354 mL | 0 | 11/2 | | Activ | | sulfate-Mg sulf | See Admin | | | 2/20 | | e | | (SUPREP BOWEL PREP | Instructions. Please | | | 17 | | | | KIT) 17.5-3.13-1.6 | follow your | | | | | | | GM/180ML SOLN | physicians | | | | | | | | instructions for use | | | | | | | | the day prior to | | | | | | | | your colonoscopy. | | | | | | + + + +---------+------+------+-------+ | neomycin | Take two 500 mg | 4 | 0 | 11/2 | | Activ | | (MYCIFRADIN) 500 MG | tablets by mouth at | tablet | | 2/20 | | e | | tabletIndications: | 7 pm and Take two | | | 17 | | | | Infection | 500 mg tablets by | | | | | | | Prophylaxis for | mouth at 9 pm the | | | | | | | Colorectal Surgery | night prior to your | | | | | | | | surgical procedure. | | | | | | + + + +---------+------+------+-------+ | metroNIDAZOLE | Take one 500 mg. | 2 | 0 | 11 | | Activ | | (FLAGYL) 500 [...] hairless | 1 patch | 0 | / | | Activ | | (TRANSDERM-SCOP) 1 | area behind the ear | | | 2/20 | | e | | mg/3days patch | the night before | | | 17 | | | | | your procedure. | | | | | | + + + +---------+------+------+-------+ | lactobacillus | Take 1 packet by | 60 each | 0 | 11/2 | | Activ | | (FLORANEX) granules | mouth 2 (two) times | | | 2/20 | | e | | | daily. | | | 17 | | | + + + +---------+------+------+-------+ | potassium chloride | Take 1 tablet by | 60 | 11 | 11/2 | | Activ | | (K-DUR,KLOR-CON) 20 | mouth 2 (two) times | tablet | | 2/20 | | e | | MEQ tablet | daily. 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 04/21/2014 | 04/22/2014 | + + + | Intraperitoneal hemorrhage 20 cm x 12 cm x 11 cm 04/22/2014 | 04/22/2014 | + + + | PAF (paroxysmal atrial fibrillation) | 04/15/2014 | + + + | Acute systolic heart failure LVEF 30% | 04/14/2014 | + + + | Narcotic dependence (HCC) | 04/14/2014 | + + + | Acute respiratory failure (HCC) | 04/12/2014 | + + + | Crohn's disease (HCC) | 04/12/2014 | + + + | [...] | Pyelonephritis | | + + + Resolved Problems + + + + | Problem | Noted | Resolved | | | Date | Date | + + + + | Sepsis(995.91) | 11/07/19 | | | | 15 | 5 | + + + + | Delirium | 11/07/19 | | | | 15 | 5 | + + + + | Urinary tract infection, site not specified | 11/07/19 | | | | 15 | 5 | + + + + | Debility, unspecified | 11/07/19 | | | | 15 | 5 | + + + + | Dehydration | 11/07/19 | | | | 15 | 5 | + + + + | Hyponatremia | 11/07/19 | | | | 15 | 5 | + + + + | Diarrhea | 11/06/19 | | | | 15 | 5 | + + + + | Encephalopathy acute | 11/06/19 | | | | 15 | 5 | + + + + | Sepsis(995.91) due to UTI | 07/20/19 | | | | 15 | 7 | + + + + | Sepsis(995.91) | 04/12/19 | | | | 15 | 5 | + + + + | Aspiration pneumonia (HCC) | 04/12/19 | | | | 15 | 5 | + + + + Immunizations + + + + | Name | Dates Previously Given | Next Due | + + + + | INFLUENZA | 04/14/2014 | | | QUADRIVALENT 36+ MO | | | | PRESERV FREE | | | + + + + | Pneumococcal | 04/14/2014 | | | Polysaccharide | | | | 23-valent | | | + + + + [...] Current Every Day | | 0.5 | 45 | | | Smoker | | | | | + +-------+ +--------+------+ + +---+---+---+ | Smokeless Tobacco: | | | | | Never Used | | | | + +---+---+---+ + + | Tobacco Cessation: Ready to Quit: No; Counseling Given: Yes | | Comments: e cigs | + + + + +---------+ + [...] | Blood Pressure | 116/80 | 04/12/2017 8:26 AM PST | + + + + | Pulse | 81 | 04/12/2017 8:26 AM PST | + + + + | Temperature | 36.6 C (97.9 F) | 04/12/2017 8:26 AM PST | + + + + | Respiratory Rate | 16 | 03/12/2017 11:20 AM PST | + + + + | Oxygen Saturation | 93% | 04/12/2017 8:26 AM PST | + + + + | Inhaled Oxygen | - | - | | Concentration | | | + + + + | Weight | 77 kg (169 lb 12.1 | 03/12/2017 6:07 AM PST | | | oz) | | + + + + | Height | 172.7 cm (5' 8") | 04/12/2017 8:26 AM PST | + + + + | Body Mass Index | 25.81 | 03/12/2017 6:07 AM PST | + + + + Plan of [...] Screening | 6 | | | | (Mammogram) | | | | + + + + + | Colon Cancer | | | | | Screening | 6 | | | | (Colonoscopy) | | | | + + + + + | Vaccine: Zoster (1 | | | | | of 2) | 6 | | | + + + + + | Vaccine: Influenza | | 04/14/2014, 04/14/2014 | | | (#1) | 9 | | | + + + + + | Vaccine: | Completed | 04/14/2014 | | | Pneumococcal 19-64 | | | | | (PPSV23 only) Medium | | | | | Risk | | | | + + + + + Results Not on filefrom Last 3 Months Insurance + +--------+ +------+-------+ + | Payer | Benefi | Subscriber | Type | Phone | Address | | | t Plan | ID | | | | | | / | | | | | | | Group | | | | | + +--------+ +------+-------+ + | MEDICARE | MEDICA | [id number] | | | [address] | | | RE | | | | [place] [address] | | | IP-OP | | | | | + +--------+ +------+-------+ + | [facility] | [place] | [id number] | | | | | | | | | | | | | HEALTH | | | | | | | CARE - | | | | | | | AARP | | | | | + +--------+ +------+-------+ + + +--------+ +--------+ + + | Guarantor Name | Accoun | Relation to | Date | Phone | Billing Address | | | t Type | Patient | of | | | | | | | | | | + +--------+ +--------+ + + | SMITA WILLINGHAM | Person | Self [birth year] | Home: | [address] | | | al/Fam | | [phone] | [phone] [place] | | | bianca | | | [phone] | [address] | + +--------+ +--------+ + +
--- OUTSIDE RECORDS SUMMARY | ~2019-02-11 | XMS | Encounter Summary ---
Demographics + + + | Address | [address] | | | [place] [address] | + + + | Home Phone | | + + + | Preferred Language | Unknown | + + + | Marital Status | | + + + | Jewish Affiliation | NRP | + + + | Race | White | + + + | Ethnic Group | Not or | + + + Author + + + | Author | [facility] | + + + | Organization | [facility] | + + + | Address | Unknown | + + + | Phone | Unavailable | + + + Support + + + + + | Name | Relationship | Address | Phone | + + + + + | Kole Willingham | [place] | [address] | | | | | [place], [place] | | | | | [address] | | + + + + + | Cami Sawyer | ECON | Unknown | | + + + + + Care Team Providers + +------+ + | Care Registration Coordinator Name | Role | Phone | [...] | | | 2014 | Event | [facility] | [address] | | | | | Admitting Desk | [place], | | | | | Located on the | [place] [address] | | | | | floor [address] [facility] | [phone] | | | | | [address] | | | | | | [place], [place] | Rajiv Willingham MD | | | | | [address] | [facility] | | | | | | [facility] [address] | | | | | | [facility] | | | | | | [place] [address] | | | | | | [phone] | | | | | | | [...] | | D - | "port"); [facility]; 01/27/17 | Alberto London RN | Discontinued After | | [facility] | (Automatic cleanup per RA | | Discharge | | l Line | 3006--contact admin for | | | | | questions.); 1622 (Automatic | | | | | cleanup per RA 3006--contact | | | | | admin for questions.); Yes; Other | | | | | (comment) ([facility]); No; Left; | | | | | [...]
--- OUTSIDE RECORDS SUMMARY | ~2019-02-11 | XMS | Encounter Summary ---
Demographics + + + | Address | [address] | | | [place] [address] | + + + | Home Phone [...] + + + | Author | [facility] | + + + | Organization | 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 Name | Role | Phone [...] | | | | | Procedures | [place], [place] | [facility] | | | | | CONSULT TO | [address] | for Health | | | | | GI PROCEDURE | Phone: | and Healing, | | | | | UNIT: | [phone] | [address] | | | | | FLEXIBLE | Fax: | [place], [place] | | | | | SIGMOIDOSCOP | [phone] | [address] | | | | | [place] | | Phone: | | | | | SIGMOIDOSCOP | | [phone] | | | | | Y,BIOPSY | | Fax: | | | | | | | [phone] | +--------+--------+ + + + + Reason [...] schedule tests | | 2016 | | [place] [facility] [address] | [address] | | | | | [address] | [place] [facility], | | | | | Mailcode: [place] | [place] [address] | | | | | [facility] and | [phone] | | | | | [place] [address] | | | | | | [place], [place] | | | | | | [address] | | | | | | [phone] | | | +--------+ + + + [...]
--- OUTSIDE RECORDS SUMMARY | ~2019-02-11 | XMS | Clinical Summary ---
Demographics + + + | Address | [address] | | | [place] [address] | + + + | Home Phone | | + + + | Preferred Language | Unknown | + + + | Marital Status | | + + + | Episcopalian Affiliation | Unknown | + + + | Race | Unknown | + + + | Ethnic Group | Unknown | + + + Author + + + | Author | [facility] | | | and [place] | + + + | Organization | [facility] | | | and [place] | + + + | Address | Unknown | + + + | Phone | Unavailable | + + + Support + + +---------+ + | Name | Relationship | Address | Phone | + + +---------+ + | Kole Willingham | ECON | Unknown | | + + +---------+ + | SofyTerrance | ECON | Unknown | | + + +---------+ + Care Team Providers + +------+ + | Care Single Pass Soil Stabilizer Operator Name | Role | Phone | [...] | Metoclopramide | Anxiety | Medium | 04/12/19 | Agitation, Unknown | | | | [...] 2 (two) times daily. 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 04/21/2014 | 04/22/2014 | + + + [...] + | Blood Pressure | 116/80 | 04/12/2017832 PST | + + + + | Pulse | 81 | 04/12/2017832 PST | + + + + | Temperature | 36.6 C (97.9 F) | 04/12/2017832 PST | + + + + | Respiratory Rate | 16 | 03/12/20171121 PST | + + + + | Oxygen Saturation | - | - | + + + + | Inhaled Oxygen | - | - | | Concentration | | | + + + + | Weight | 77 kg (169 lb 12 oz) | 03/12/20171121 PST | + + + + | Height | 172.7 cm (5' 8") | 04/12/2017 0833 PST | + + + + | Body Mass Index | 25.81 | 03/12/20171121 PST | + + + + Plan [...] Last 3 Months Insurance + +--------+ +--------+ +---------+--------+ | Payer | Benefi | Subscriber | Effect | Phone | Address | Type | | | t Plan | ID | brady | | | | | | / | | Dates | | | | | | Group | | | | | | + +--------+ +--------+ +---------+--------+ | MEDICARE | MEDICA | [id number] | 04/11/19 | [phone] | | Medica [...] [place] | | | [address] (Home) | [address] | + +--------+ +--------+ + +
--- OUTSIDE RECORDS SUMMARY | ~2019-02-11 | XMS | Encounter Summary ---
Demographics + + + | Address | [address] | | | [place] [address] | + + + | Home Phone | | + + + | Preferred Language | Unknown | + + + | Marital Status | | + + + | Quaker Affiliation | NRP | + + + | Race | White | + + + | Ethnic Group | Not or | + + + Author + + + | Author | [facility] | + + + | Organization | [facility] | + + + | Address | Unknown | + + + | Phone | Unavailable | + + + Support + + + + + | Name | Relationship | Address | Phone | + + + + + | Kole Willingham | [place] | [address] | | | | | [place], [place] | | | | | [address] | | + + + + + | Cami Sawyer | ECON | Unknown | | + + + + + Care Team Providers + +------+ + | Care Residential Gas Heat Technician Name | Role | Phone | + +------+ + | Aren Rsoe DO | PCP | | + +------+ [...] | Crohn's | Neel Vega MD | [address] | | | | | disease of | [facility] [address] | | | | | both small | [facility] | [facility] | | | | | and large | [facility]ARE CL[facility]IC | [place], [place] | | | | | intestine | [address] | [address] | | | | | without | [address] | Phone: | | | | | complication | [place], | [phone] | | | | | s | [place] [address] | Fax: | | | | | | Phone: | [phone] | | | | | | [phone] | | | | | | | Fax: | | | | | | | [phone] | | +--------+--------+ + + + + Encounter Details +--------+---------+ + + + | Date | Type | Department | Care Team | Description | +--------+---------+ + + + | 07/27/ | Office | Digestive Health | Triec Marie MD | Rectovaginal fistula | | 2016 | Visit | Center at [facility] [address] | [address] | (Primary Dx); | | | | [address] | [place], | Crohn's disease of | | | | Mailcode: [place] | [place] [address] | both small and large | | | | for Health and | [phone] | intestine with | | | | Healing, [address] | | complication (HCC) | | | | [place], [place] | | | | | | [address] | | | | | | [phone] | | | +--------+---------+ + + + [...] Dimple in her vagina seen by her IMPRESS ASSOCIATE ~1995 For fibroids and vaginal bleeding, she [...] Referral patient, I spent 62 minutes of [id number] time, of which more than half the [...] colonos copy was this past month at [facility] in [facility] with Dr. Krishna, which per patient was [...] alcohol or use illicit drugs. Lives in [place] with her . FH: Family History: None [...] Recommendations: 1) Review outside colonoscopy completed at [facility] - request has been sent 2) Plan for flex sig locally in [place] in 8 weeks time. Patient to send [...] | + +--------+ + + + | MS ANOSCOPY, DIAG | Routin | 08/04/2015 | [...]
--- OUTSIDE RECORDS SUMMARY | ~2019-02-11 | XMS | Encounter Summary ---
Demographics + + + | Address | [address] | | | [place] [address] | + + + | Home Phone | | + + + | Preferred Language | Unknown | + + + | Marital Status | | + + + | Sikh Affiliation | NRP | + + + [...] [place], [place] | | | | | [address] | | + + + + + | Cami Sawyer | ECON | Unknown | | + + + + + Care Team Providers + +------+ + | Care Senior Loan Officer Name | Role | Phone | [...] | 6A Intra Op [facility] | Mirela Slagado, | RIGHT POPLITEAL | | 2011 | | [facility] | MD [address] | ANTEROTIBIAL | | | | Admitting Desk | [address] | EMBOLECTOMY | | | | Located on the | [place], [place] | | | | | floor [address] | [address] | | | | | [address] | [phone] | | | | | [place], [place] | | | | | | [address] | | | +--------+---------+ + + + [...] [facility]. 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 At arrival to [facility] it was learned that she did NOT indeed have ischemic colitis. 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 She underwent embolectomy on 03/17, which resulted in christian of flow and no loss of tissue [...] was agreed that the patient needed a buttermaker continuous churn treatment and we settled o n remicade. [...] flagyl - which was continued throughout the [facility]. However, vanc/cefepime/flagyl was used instead for [...] Destination: Home Other Discharge Orders and Instructions research contracts supervisor your lovenox syringes at the [facility]. Go to the hospital on Tuesday [...] forming. Please call your GI doctor in [facility] to arrange for your second [...] whether or not the INR is truly direct customer service representative of anticoagulation. In patients with [...] NR on Tuesday. KIRIT RUST MD [facility] DEPARTMENT: [id number]- [facility] Faculty PPV Place of Service:- Inpatient Date of Service: 04/01/2012 CSN: [id number] Suggested Modifier: GC Resident Involved: Yes Suggested CPT: 90556- Dishcarge < 30 min Electronically signed by [...] questions. Debi Oconnor MD GI/Hepatology Fellow Pager: [phone] INTERVAL HISTORY: MRI abdomen shows no abscess; [...] risk of emboli, I called Dr. Rodriges (salon/spa manager for her PCP) to coordinate f/u of [...] any additions above. KIRIT RUST MD [facility] DEPARTMENT: [id number]- [facility] Faculty PPV Place of Service:- Inpatient Date of Service: 03/31/2012 CSN: [id number] Suggested Modifier: GC Resident Involved: Yes Suggested CPT: 65573- Subsequent, Detailed/high complex, 35 min Davonte De [...] state: J Gastroenterol. 2004 Oct;39(10):948-54. PubMed PMID: [id number]. Consulted Heme for further studies on platelet [...] no insurance. Wanting to go home for [place]. Nurse repor ts that she has admitted [...] notes for assessment and pl an. Nuñez [place], Sub-Assembler Plastic Boat Pgr: [phone] Ajay De La Rosa MD - 03/30/2012 11:39 PM [facility]3 Internal Medicine Attending Interval [...] bridge after d/c until coumading therapeutic with child care group leader through medication assistance program Hypoalbuminemia (03/14/2012) Assessment: [...] any additions above. KIRIT MD YOCASTA [facility] DEPARTMENT: [id number]- [facility] Faculty PPV Place of Service:- Inpatient Date of Service: 03/30/2012 CSN: [id number] Suggested Modifier: GC Resident Involved: Yes Suggested CPT: 93972- Subsequent, Detailed/high complex, 35 min Debi Yepez [...] follow closely Shaun SAEED GI Fellow Pg [phone] signed by Debi Oconnor MD at 03/30/2012 5:32 PM Jacoby Ko MD - 03/30/2012 10:25 AM PSTFormatting of this note might be different from the origi nal. [facility] DEPARTMENT OF SURGERY Daily Progress Note PROGRESS NOTE: Attending Physician: Xin Rust MD 03/31/2012 Subjective/Overnight Events: - latest CT shows resolution of abscess - no GI bleeding - no rectal/anal pain - tolerating reg diet MEDICATIONS: Reviewed in [facility] VITAL SIGNS: Refer to [facility] Intake/Output Summary (Last 24 hours) at 03/31/12 [...] concerns. Jacoby Tovar MD Surgery, R2 Diagnoses: [id number] Crohn disease This assessment and plan was [...] state: J Gastroenterol. 2004 Jan;39(10):948-54. PubMed PMID: [id number]. Consulted Heme for further studies on platelet [...] Nathan Weeks MD Internal Medicine PGY1 Pager [phone] Cecilia Baker MD - 03/29/2012 6:37 PM [...] team. Debi Oconnor MD GI Fellow Pager [phone] signed by Debi Oconnor MD at 03/29/2012 [...] planning) Debi Oconnor MD Fellow, Gastroenterology pager: [phone] signed by Debi Oconnor MD at 03/29/2012 [...] note for this encounter. OSBALDO GARCIA MD [facility] [address]A [address] [place] [address] Andrew Shah MD - 10:41 AM PST [facility] DEPARTMENT OF SURGERY Daily Progress Note PROGRESS NOTE: Attending Physician: Osbaldo Garcia MD 03/29/2012 Subjective/Overnight Events: - bowel prep initiated - Hct stable - no hematochezia or hemetemesis - MEDICATIONS: Reviewed in [facility] VITAL SIGNS: Refer to [facility] Intake/Output Summary (Last 24 hours) at 03/29/12 [...] GI Jacoby Tovar MD Surgery, R2 Diagnoses: [id number] Crohn disease This assessment and plan was [...] myself provided conscious sedation. OSBALDO GARCIA MD [facility] [address]A [address] [facility] [address] [place] [address] I spent 35 min in critical care (not including procedures) [facility] DEPARTMENT: MICU, [facility]- [id number] Place of Service: - Date of Service: 03/29/2012 CSN: [id number] Modifiers:GC Resident Involved: yes Suggested CPT: 65710 Critical Care, Initial 30-74 minutes Carlton Godwin [...] day of transfer to MICU (1 05/29/11), [facility] informed us that according to the most [...] 0659 03/29/12 07 - 03/30/12 0659 Shift 2062-8920 5612-9159 6889-5145 Daily Total 7237-3990 1182-0539 6113-0403 Daily Total I N T A K E P.O. 1750 2525 4275 I.V. 934 7035 425 8613 Shift Total 934 3740 3450 8124 O U T P U T Urine 1075 2950 1875 5900 Urine 1075 2950 1875 5900 Other 575 662 392 2732 Measured Stool Output 350 425 775 Stool/Urine Mix 575 575 Shift Total 1650 3300 2300 7250 NET -807 329 4699 874 Intake/Output Summary (since admission) at 03/12/12 1910 Last data filed at 03/29/12 0547 Gross for the last 17 days Intake 38921 ml Output 20058 ml Net since Admission -63842 ml Physical Exam: General Appearance: middle aged [...] Carlton Betancourt DO PGY-1 Internal Medicine Pager [phone] Debi Yepez MD - 03/11 4:31 PM [...] questions. Debi Oconnor MD GI/Hepatology Fellow Pager: [phone] INTERVAL HISTORY: Episode of melena last night then bright red blood per rectum this morning Hemodynamically stable but decrease in hct from 30 to 24 Transferred to [facility] INPATIENT MEDICATIONS acetaminophen (aka TYLENOL) tablet 650 [...] patient in the past. OSBALDO GARCIA MD [facility] [id number] [address] I spent 35 min in critical care (not including procedures) EPIC DEPARTMENT: [facility]- [id number] Place of Service: Date of Service: 03/28/2012 CSN: [id number] Modifiers:GC Resident Involved: yes Suggested CPT: 22222 Critical Care, Initial 30-74 minutes Carlton Godwin [...] 0659 03/28/12 07 - 03/29/12 0659 Shift 4683-0325 7030-9748 3488-2732 Daily Total 3511-8112 1192-0605 6452-2135 Daily Total I N T A K E P.O. 240 300 540 I.V. 404 404 934 934 Blood 1300 1300 Shift Total 569 006 0291 2244 934 934 O U T P [...] Gross for the last 16 days Intake 13433 ml Output 28782 ml Net since Admission -27576 ml Physical Exam: General Appearance: tearful middle [...] Carlton Betancourt DO PGY-1 Internal Medicine Pager [phone] Andrew Shah MD - 6:52 AM PST [...] Sukumar Zuniga DO Internal Medicine PGY-2 Pg [phone] Davonte De La Rosa MD - 03/27/2012 [...] any additions above. KIRITYann RUST MD [facility] DEPARTMENT: [id number]- [facility] Faculty PPV Place of Service:- Inpatient Date of Service: 03/27/2012 CSN: [id number] Suggested Modifier: Resident Involved: Yes Suggested CPT: 06782- Subsequent, Detailed/high complex, 35 min Marely Mccann [...] was discussed and formulated with gastroenterology at [facility], Dr. Hennessy. Please call with any questions. Debi Oconnor MD GI/Hepatology Fellow Pager: [phone] INTERVAL HISTORY: Imaging reviewed with radiology; too [...] Dung Victor - 2 11:30 AM PST CUFF TURNER NOTE: Visited with Patient. 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 Sea Foam Kiss Maker team will follow as needed. Chaplain Dung Riley M.Div., [facility] [phone] Pager #[phone]; #[phone] Xin De La Rosa MD - 7:31 [...] J Gastroenterol. 2004 Jan;39(10):948-54. PubMed PMID: [id number]. Consulted Heme for further studies on platelet [...] an. ---- Joaquin Rivera, MS4 Pager # [phone] signed by Xin Rust MD at 03/27/2012 [...] any additions above. KIRIT RUST MD [facility] DEPARTMENT: [id number]- [facility] Faculty PPV Place of Service:- Inpatient Date of Service: 03/26/2012 CSN: [id number] Suggested Modifier: GC Resident Involved: Yes Suggested CPT: 74953- Subsequent, Detailed/high complex, 35 min aphael Norman [...] kg/(m^2). 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 Raphael Norman MD Internal Medicine, PGY-2 51594 Xin De La Rosa MD - 03/25/2012 [...] not larger Resident spoke with vice president for instruction who spoke with staff - they did [...] taking more PO if still low ask health and fitness instructor to see Hypophosphatemia (03/14/2012) Assessment: rechecked and [...] any additions above. KIRIT MD YOCASTA [facility] DEPARTMENT: [id number]- [facility] Faculty PPV Place of Service:- Inpatient Date of Service: 03/25/2012 CSN: [id number] Suggested Modifier: Resident Involved: Yes Suggested CPT: 19456- Subsequent, Detailed/high complex, 35 min oaquin Rivera - 03/25/2012 1:07 PM PST Medicine Progress Note Refer to Attending and Resident Notes for Assessment and Plan Hospital Day # 13 Patient:Mackenzie Hartley, Attending: iXn Rust MD Author:Joaquin Rivera MS4 ID: Mackenzie [...] J Gastroenterol. 2004 Jan;39(10):948- 54. PubMed PMID: [id number]. Consulted [facility] for further studies on platelet inhibitor [...] an. ---- Joaquin Rivera, MS4 Pager # [phone] Ajay De La Rosa MD - 03/24/2012 [...] drainage of abscess and coordination of care [facility] radiology reviewing perirectal abscess imaging, options for intervention and need for rep eat imagin, also with GI on plan. I personally interviewed the patient, performed the gunter elements of the physical examinatio n, and personally formulated the assessment and plan with the resident. I agree with the MS4 s documentation and have noted any additions above. KIRIT MD YOCASTA [facility] DEPARTMENT: [id number]- [facility] Faculty PPV Place of Service:- Inpatient Date of Service: 03/24/2012 CSN: [id number] Suggested Modifier: Resident Involved: Yes Suggested CPT: 34795- Subsequent, Detailed/high complex, 35 min Davonte De [...] J Gastroenterol. 2004 Jan;39(10):948- 54. PubMed PMID: [id number]. Consulted Heme for further studies on platelet inhibitor and alna mmend repeating in 6 months. No new [...] an. ---- Joaquin Nicole, MS4 Pager # [phone] Ajay De La Rosa MD - 03/23/2012 [...] any additions above. KIRIT MD YOCASTA [facility] DEPARTMENT: [id number]- [facility] Faculty PPV Place of Service:- Inpatient Date of Service: 03/23/2012 CSN: [id number] Suggested Modifier: GC Resident Involved: Yes Suggested CPT: 02578- Subsequent, Detailed/high complex, 35 min Davonte De [...] to be done today JERI DIAZ MD [facility] [address]A [address] [place] [address] Xin De La Rosa MD - 03/23/2012 [...] state: J Gastroenterol. 2004 Jan;39(10):948-54. PubMed PMID: [id number]. Consulted Heme for further studies on platelet [...] an. ---- Joaquin Rivera, VIVIANA Pager # [phone] Ajay De La Rosa MD - 03/22/2012 [...] any additions above. KIRIT MD YOCASTA [facility] DEPARTMENT: [id number]- [facility] Faculty PPV Place of Service:- Inpatient Date of Service: 03/22/2012 CSN: [id number] Suggested Modifier: Resident Involved: Yes Suggested CPT: 12115- Subsequent, Detailed/high complex, 35 min ox, Jeri [...] carotid duplex ordered today JERI DIAZ MD [facility] [address]A [address] [place] [address] Xin De La Rosa MD - 03/22/2012 [...] PTT in mixing 1:1 Neg cardiolipin, neg oloe-U-fccoeevphold Legionella Agg Urine pending Cultures: BLOOD CULTURE [...] barber: J Gastroenterol. 2004 Jan;39(10):948-54. PubMed PMID: [id number]. - Consult Heme for further studies on [...] an. ---- Joaquin Rivera, MS4 Pager # [phone] Ajay De La Rosa MD - 03/21/2012 [...] BP 142/76 | Pulse 106[sinus tach per singing telegram performer[ | Temp 37.7 C (99.9 F) | [...] also coordination of care with pharmD. [facility] DEPARTMENT: [id number]- [facility] Faculty PPV Place of Service:- Inpatient Date of Service: 03/21/2012 CSN: [id number] Suggested Modifier: AKHIL Resident Involved: Yes Suggested CPT: 00001- Subsequent, Detailed/high complex, 35 min Jennifer Tolentino [...] y.o. Female with multiple complex medical problems; [facility] Vascular Surge ry consulted due [...] as new baseline Ok to discharge per [facility] Vascular Surgeons once ambulating and medical issues are stable. Will continue to follow while in patient. [facility] Vascular Surgery Clinic, [facility] [address], phone number [phone] Please schedule followup appointment within 2-3 weeks of surgery for wound check. Dr. Sukumar Salgado, [facility] Vascular Surgery Attending. MERT OLIVA [facility] VASCULAR SURGERY [facility] [place] [address] hamMoses MD - 03/21/2012 6:55 AM PSTAgree [...] w ill need to establish care with information technology consultant so that further treatment options can [...] assessment and plan. Moses Anthony MD Neurology Assembler [employer] Boat Pager [phone] oaquin Rivera - 02/2012 6:55 AM PST [...] an. ---- Joaquin Rivera, MS4 Pager # [phone] Xin De La Rosa M D - 03/20/2012 11:09 PM [facility]3 Internal Medicine Attending Interval [...] any additions above. KIRIT MD YOCASTA [facility] DEPARTMENT: [id number]- [facility] Faculty PPV Place of Service:- Inpatient Date of Service: 03/20/2012 CSN: [id number] Suggested Modifier: Resident Involved: Yes Suggested CPT: 81075- Subsequent, Detailed/high complex, 35 min ennifer Staples, [facility] - 03/20/2012 3:36 PM PST . [...] y.o. Female with multiple complex medical problems; [facility] Vascular Surge ry consulted due [...] chair as tolerated, RLE WBAT -Please obtain [facility] Arterial duplex ultrasound/DELORIS of both legs prior to discharge as n ew baselineObtain ABIs with waveforms To establish new blood-flow baseline Ok to discharge per [facility] Vascular Surgeons once ambulating and medical issues are stable. Will continue to follow while in patient. [facility] Vascular Surgery Clinic, [facility], phone number [phone] Please schedule followup appointment within 2-3 weeks of surgery for wound check. Dr. Sukumar Salgado, [facility] Vascular Surgery Attending. MERT OLIVA [facility] VASCULAR SURGERY [address] [place] [address] aphael Norman - 7:58 AM PSTI agree [...] Poor absorption and GI losses is dasha baliey contributing. Reassess dispo tomorrow. The patient is full code. The patient was seen and examined with Dr. Rust, who agrees with the above assessment and plan. Raphael Norman MD Internal Medicine, PGY-2 [id number] rinJoaquin dowd - 2011 7:58 AM PST [...] an. ---- Joaquin Rivera, MS4 Pager # [phone] Juma Pimentel MD - 12/2011 3:35 PM [...] record is Dr. Salgado. JUMA CARRINGTON MD [facility] [address] [facility] [address] [place] [address] Chary Moore M D - 03/19/2012 9:14 [...] note from 03/14 for details. Therefore the xidb-tqzc-cnxub plan givens s been to allow her [...] plan. Lovenox bridge to be covered by [facility]. 9) Occlusive thrombus 10) Hypoalbuminemia 11) Hypophosphatemia 12) TIA (transient ischemic attack) - with PFO 13) PFO (patent foramen ovale) - plan is for lifelong coumadin. No additional benefit from device closure per CLOSURE I trial. Chary Doherty MD Chief Resident, Internal Medicine Pager: [phone] [facility] DEPARTMENT: Hosp- [id number] Place of Service: - Date of Service: 03/19/2012 CSN: [id number] Modifiers:GC Resident Involved: Yes Suggested CPT: 16390 Subsequent Visit Detailed/High complexity 35 min I [...] EJ, which will be attempted under U/S keslea pearl. Current Symptoms: Nausea -- chronic issue [...] will need to establish c are with information technology consultant so that further treatment options can [...] assessment and plan. Moses Anthony MD Neurology Assembl[employer] Pager [phone] tJose Antonio prado MD - 03/18/2012 1:01 [...] outpt GI, plans to establish care in [place], perhaps Dr. Byrd. Transitioning to PO meds, [...] Doherty MD Chief Resident, Internal Medicine Pager: [phone] [facility] DEPARTMENT: Hosp- [id number] Place of Service: - Date of Service: 03/18/2012 CSN: [id number] Modifiers: Resident Involved: Yes Suggested CPT: 40821 Subsequent Visit Exp Prob Foc/Mod Complexity 25 [...] Date 03/18/12 0700 - 03/19/12 0659 Shift 7198-7730 6662-5964 4937-3460 24 Hour Total I N T A K E P.O. 620 620 I.V. 20 20 40 Shift Total 640 20 660 O U T P U T Urine 675 100 775 Other 400 400 Shift Total 511 823 2983 Weight (kg) 74.1 74.1 74.1 74.1 General: [...] refusing). Will need to establish care with information technology consultant so that further treatment options can [...] in MS4 note. Moses Anthony MD Neurology Assembler [employer] Pager [phone] signed by Moses Asher MD at 03/18/2012 [...] an. ---- Nuñez Nicole, MS4 Pager # [phone] Chary Moore MD - 03/17/2012 8:39 PM [...] refusing). Will need to establish care with information technology consultant so this can be discussed as [...] Doherty MD Chief Resident, Internal Medicine Pager: [phone] [facility] DEPARTMENT: Hosp- [id number] Place of Service: - Date of Service: 03/17/2012 CSN: [id number] Modifiers: Resident Involved: Yes Suggested CPT: 77996 Subsequent Visit Detailed/High complexity 35 min I [...] at end of case. MIRELA SALGADO MD [facility] [address] [address] [place] [address] ham, Gloria Lawson MD - [...] until she's therapeutic with her coumadin and [facility] has agreed to provide discounted INR [...] y Gloria Anthony MD Neurology PGY1 Pager: [phone] oaquin Rivera - 10/2011 7:19 AM PST [...] an. ---- Joaquin Rivera, MS4 Pager # [phone] Chary Moore MD - 03/16/2012 12:56 PM [...] Doherty MD Chief Resident, Internal Medicine Pager: [phone] [facility] DEPARTMENT: Hosp- [id number] Place of Service: - Date of Service: 03/16/2012 CSN: [id number] Modifiers: Resident Involved: Yes Suggested CPT: 38313 Subsequent Visit Exp Prob Foc/Mod Complexity 25 min and 59150 Subseque nt Visit Detailed/High complexity 35 min [...] DNR/DNI Gloria Anthony MD Neurology PGY-1 Pager [phone] The patient was seen and discussed with [...] Doherty MD Chief Resident, Internal Medicine Pager: [phone] [facility] DEPARTMENT: Hosp- [id number] Place of Service: - Date of Service: 03/15/2012 CSN: [id number] Modifiers:GC Resident Involved: Yes Suggested CPT: 57987 Subsequent Visit Detailed/High complexity 35 min Dariela Duenas Md - 03/15/2012 9:15 PM PSTINPATIENT PROGRESS NOTE Hospital Day:3 Author; DRAIELA SANTOYO MD Attending Physician: Chary Doherty MD [...] plan. Dariela Santoyo MD Internal Medicine PGY-3 [id number] Daryl Singleton MD - 08/2011 7:18 PM PSTHematology Attending Consult Note: I saw and examined Ms. Hartley with the Hematology Fellow, Dr. Anthony Camejo and [facility] [place] the 5A Medicine unit. I participated in the gunter components of today's [facility] pital visit including review of the history, [...] Daryl Arteaga MD, PhD Hematology Oncology [facility] DEPARTMENT: [id number]- HEM FACULTY [facility] Place of Service: - Inpatient Date of Service: 03/15/2012 Modifiers: GC - Resident Involved Suggested CPT: 93833 - Subsequent, Detailed/High complex 35 min Anthony [...] anticoagulation clinic f/u closely; our clinic at [facility] cannot provide any suppli es [...] as above. MD Hematology/Oncology Fellow Pager # [phone] signed by Daryl Arteaga MD at 03/15/2012 [...] with any questions. Bigg Margaret, R1 Pager: [phone] INTERVAL HISTORY: - NAEO - VSS, AF [...] wishes to pro ceed. Mirela Samano M.D. [facility] Vascular Surgery [address] [facility], [address] [address] Email: [email or web address], Sandoval Barrett MD - 03/15/2012 9:30 [...] off to day. Jacoby Tovar MD Surgery [id number] signed by Sandoval Tovar MD at 03/15/2012 [...] monitor Gloria Anthony MD Neurology PGY1 Pager [phone] Daryl Singleton MD - 07/2011 4:57 PM PSTHematology Attending Consult Note: I saw and examined Ms. Hartley with the Hematology Fellow, Dr. Anthony Camejo in the [address] [place] [address] unit. I participated in the gunter components [...] Daryl Arteaga MD, PhD Hematology Oncology [facility] DEPARTMENT: [id number] HEM FACULTY [facility] Place of Service: - Inpatient Date of Service: 03/14/2012 Modifiers: GC - Resident Involved Suggested CPT: 83781 - Subsequent, Detailed/High complex 35 min Anthony [...] as above. MD Hematology/Oncology Fellow Pager # [phone] signed by Daryl Arteaga MD at 03/14/2012 [...] really for treatment Recommendations communicated with GM3 tech intern. We will continue to follow. This plan was discussed and formulated with gastroenterology at [facility], Dr. Casiano. Please call with any questions. Bigg Robles, R1 Pager: [phone] Attending Attestation: I personally interviewed the patient, [...] She may follow-up wit h her local information technology consultant or may follow up with me at [facility] if she wishes to consider di fferent evaluation or treatment. oGpal Casiano MD Network Operations Specialistdirect customer service representative Department of Gastroenterology INTERVAL HISTORY: - NAEO [...] IMAGING Reviewed outside imaging with radiologist at [facility] and CT abd and pelvis [...] Becca Moncada MD General Surgery, R2 Pager: [phone] [facility] Staff I saw and evaluated the patient. I agree with the findings and the plan of care as jannie hair in the resident s note. Left foot warm and well perfused. Patient pain-free. Will repe at CTA to see if there has been any thrombus progression. No urgent need for surgery on left leg at this point. Mirela Samano M.D. [facility] Vascular Surgery [address] [place] [address], [address] [address] Email: [email or web address] oparvin, Irene Vega MD - 03/14/2012 3:52 [...] OSH. 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 She also had leukocytosis to 45 with a left shift, anemia, and thrombocytosis (platelets to 759). Her abdominal exam was not acute and she remained hemodynamically stable. Transferre d to [facility] for possible thrombectomy, initiated heparin [...] were obscured by overlying bowel gas. The [id number] left external iliac arteries appear patent with [...] arterial occlusion. Reported CT findings at [facility] are also concerning for diffuse [...] A SALCIDO MD R2, General Surgery [facility] 03/13/2012 1:20 PM Current Facility-Administered [...] Recorded LastCBG Intervention: Notified (Comment);Medication given (03/12/12 9016) CBC with diff last 72 hours (or [...] Becca Moncada MD General Surgery, R2 Pager: [phone] Vascular Staff I saw and evaluated the [...] at a later time. Mirela Samano M.D. [facility] Vascular Surgery [address] [facility] [place] [address] Email: [email or web address] Richie Goodman MD - 06/2011 11:15 AM PSTI was present and rounded with the HEAT TREATING BLUER today. I interviewed and examined the patient. I reviewed the history, as documented today. I agree with the HEAT TREATING BLUER's assessmen t and plan. Pt is stable [...] visceral and aortic thrombus transfer red from [place] last night with concerns for ischemic bowel. [...] and celiac arteries who was transferred to [facility] for management o f vascular disease and possible bowel ischemia. No evidence of bowel ischemia, bowel thicken ing likely Crohn's flare. 1. Crohn's flare: GI consult. Consider transfer to medicine for crohn's management with [facility] following 2. Multivessel occlusions/thrombii: vascular surgery following. [...] Her abdominal exam does not reveal peritonitis. [facility] ular surgery recommended a heparin drip given her subtherapeutic INR. Hematology will be con sulted for her leukocytosis and declining platelet count in the setting of heparin therapy. Gastroenterology is making recommendations regarding acute management of her Crohn's disease . She will no longer require ICU care and she will transfer to the general medicine service. Jf Wiseman MD FACS ironworker Division of Trauma, Critical Care, and Acute Care Surgery [id number] documented in this e ncounter Plan of [...] | + + + + + | [facility] | [address] | [place] [address] | | | JANELL SHARP | [address]TR[address] [...] [facility] | [address] | [place] [address] | | | SERVICES, CORE | BERTRAM [...] | + + + + + | [facility] | [address] [facility] | [place] [address] | | | JANELL SHARP | BERTRAM [...] LABORATORY | [address] | [place] [address] | | | SERVICES, CORE | PARK [...] + + + + + | [facility] | [address] | [place] [address] | | | SERVICES, CORE | PARK [...] + | [facility] | [address] | [place] [address] | | | SERVICES, JANELL | BERTRAM [...] [facility] | [address] | [place] [address] | | | JANELL SHARP | BERTRAM [...] [facility] | [address] | [place] [address] | | | SERVICES, JANELL | BERTRAM [...] [facility] | [address] | [place] [address] | | | SERVICES, CORE | PARK [...] [facility] | [address] | [place] [address] | | | SERVICES, CORE | BERTRAM [...] [facility] | [address] | [place] [address] | | | SERVICES, CORE | PARK [...] + + + + + | [facility] | [address] | [place] [address] | | | SERVICES, CORE | BERTRAM [...] + + + + + | [facility] | [address] | [place] [address] | | | SERVICES, CORE | PARK [...] + | [facility] | [address] | [place] [address] | | | [place] | | | [...] + | [facility] | [address] | [place] [address] | | | [place] | | | [...] + | [facility] | [address] | [place] [address] | | | [place] | | | | + + + [...] | + + + + + | [facility] | [address] | [place] [address] | | | SERVICES, CORE | BERTRAM [...] + + + + + | [facility] | [address] | [place] [address] | | | SERVICES, CORE | BERTRAM [...] | + + + + + | [facility] | [address] [facility] | [place] [address] | | | SERVICES, CORE | BERTRAM [...] | + + + + + | [facility] | [address] | [place] [address] | | | ARON, JANELL | BERTRAM [...] | + + + + + | [facility] DEPARTMENT | [address] | [place] [address] | | | PATHOLOGY | [address] [...] [facility] | [address] | [place] [address] | | | SERVICES, CORE | PARK [...] + + + + + | [facility] | [address] [facility] | [place] [address] | | | ARON, [facility] | [address] | | | + [...] [facility] | [address] | [place], [place] | | | [facility] | [address] | [address] | | | TESTS | | | [...] + + + + + | [facility] | [address] | [place] [address] | | | SERVICES, CORE | BERTRAM [...] | + + + + + | [facility] | [address] | [place] [address] | | | ARON, CORE | BERTRAM [...] + + + + + | [facility] | [address] | [place] [address] | | | SERVICES, CORE | BERTRAM [...] (H) | 60 - 99 mg/dL | [facility] - | | | GLUCOSE, [...] [facility] | [address] | [place], [place] | | | [facility] CARE | [address] | [address] | | | TESTS | | | [...] | + + + + + | [facility] | [address] | [place] [address] | | | SERVICES, CORE | BERTRAM [...] + + + + + | [facility] | [address] [facility] | [place] [address] | | | SERVICES, CORE | BERTRAM [...] [facility] | [address] | [place] [address] | | | SERVICES, CORE | PARK [...] + + + + + | [facility] | [address] | [place] [address] | | | SERVICES, CORE | [address] | | | + + + + + X-RAY PORTABLE CHEST 1 VIEW (03/28/2012 6:28 AM PST) + + + + + + | Component | Value | Ref Range | Performed | Pathologist | | | | | At | Signature | + + + + + + | X-RAY | STUDY: RI CHEST 1 VIEW | | | | [...] + + + + | PRODUCT | [id number] | | [facility] | | | UNIT [...] + + + + | BLOOD | [id number] | | [facility] | | | PRODUCT [...] [facility] | [address] | [place] [address] | | | PATHOLOGY | [address] [...] + + + + | PRODUCT | [id number] | | [facility] | | | UNIT [...] + + + + | BLOOD | [id number] | | [facility] | | | PRODUCT [...] + + + + + | [facility] | [address] | [place] [address] | | | PATHOLOGY | [address] [...] [facility] | [address] | [place], [place] | | | [facility]ARE | [address] | [address] | | | TESTS | | | [...] + + + + + | [facility] | [address] [facility] | [place] [address] | | | JANELL SHARP | [address] | | | + + + [...] view image for the detailed interpretation from [employer] results. | CARDIOLOGY | + + + + + + + + | Performing | Address | City/State/Zipcode | Phone Number | | Organization | | | | + + + + + | [facility] | [address] | [place], [place] | | | CARDIOLOGY | [address] | [address] | | + + + + + [...] [facility] | [address] | [place] [address] | | | SERVICES, CORE | BERTRAM [...] + + + + | PRODUCT | [id number] | | [facility] | | | UNIT [...] + + + + | BLOOD | 14116 | | [facility] | | | PRODUCT [...] + + + + + | [facility] | [address] | [place] [address] | | | PATHOLOGY | [address] [...] + + + + | PRODUCT | [id number] | | [facility] | | | UNIT [...] + + + + | BLOOD | 61193 | | [facility] | | | PRODUCT [...] | + + + + + | [facility] DEPARTMENT | [address] | [place] [address] | | | PATHOLOGY | [address] [...] [facility] | [address] | [place] [address] | | | SERVICES, CORE | PARK [...] [facility] | [address] | [place] [address] | | | JANELL SHARP | [address] [...] | + + + + + | [facility] | [address] | [place] [address] | | | JANELL SHARP | [address] [...] [facility] | [address] | [place] [address] | | | SERVICES, CORE | PARK [...] [facility] | [address] | [place] [address] | | | SERVICES, | [address] [...] [facility] | [address] | [place] [address] | | | SERVICES, | [address] [...] + + + + | PRODUCT | [id number] | | [facility] | | | UNIT [...] + + + + | BLOOD | 14965 | | [facility] | | | PRODUCT [...] + + + + + | [facility] | [address] | [place] [address] | | | PATHOLOGY | [address] [...] + + + + | PRODUCT | [id number] | | [facility] | | | UNIT [...] + + + + | BLOOD | 69646 | | [facility] | | | PRODUCT [...] DEPARTMENT OF | [address] | [place] [address] | | | PATHOLOGY | [address] [...] [facility] | [address] | [place] [address] | | | SERVICES, CORE | PARK [...] | + + + + + | [facility] | [address] | [place] [address] | | | SERVICES, CORE | PARK [...] | + + + + + | [facility] | [address] | [place] [address] | | | SERVICES, CORE | PARK [...] + + + + + | [facility] | [address] | [place] [address] | | | SERVICES, CORE | PARK [...] [facility] | [address] | [place] [address] | | | JANELL SHARP | [address] [...] [facility] | [address] | [place] [address] | | | SERVICES, CORE | PARK [...] [facility] | [address] | [place] [address] | | | SERVICES, CORE | PARK [...] [facility] | [address] | [place] [address] | | | SERVICES, CORE | PARK [...] 82 | 60 - 99 mg/dL | [facility] | | | PLASMA | | | [...] [facility] | [address] | [place] [address] | | | JANELL SHARP | [address] [...] [facility] | [address] | [place] [address] | | | SERVICES, CORE | PARK [...] [facility] | [address] | [place] [id number] | | | SERVICES, CORE | BERTR[address] [...] [facility] | [address] | [place] [address] | | | SERVICES, CORE | PARK [...] [facility] | [address] | [place] [address] | | | SERVICES, CORE | PARK [...] [facility] | [address] | [place] [address] | | | SERVICES, CORE | PARK [...] + + + + + | [facility] | [address] | [place] [address] | | | JANELL SHARP | [address] [...] oral, | | | | | | [id number] hrs | | | | | | [...] | | + +---------+ + + | [facility] DEPARTMENT OF | | | [...] [facility] | [address] | [place] [address] | | | SERVICES, CORE | PARK [...] | + + + + + | [facility] | [address] | [place] [address] | | | SERVICES, CORE [...] + + + + + | [facility] | [address] | [place] [address] | | | SERVICES, CORE | BERTRAM [...] + + + + + | [facility] | [address] | [place] [address] | | | SERVICES, CORE | BERTRAM [...] [facility] | [address] | [place] [address] | | | SERVICES, CORE | PARK [...] | | | | Final | | [place] | | | | CULTURE RESULT:< 10,000 [...] + | [facility] | [address] | [place] [address] | | | [facility] | | | | + + [...] [facility] | [address] | [place] [address] | | | SERVICES, CORE | PARK [...] [facility] | [address] | [place] [address] | | | SERVICES, JANELL | BERTRAM [...] | [facility] | [address] [facility] | [place] [address] | | | JANELL SHARP | [address] [...] | + + + + + | [facility] | [address] | [place] [address] | | | SERVICES, CORE | [address] | | | + + + + + 12 LEAD ECG (03/23/2012 4:00 PM PST) + + + + + + | Component | Value | Ref Range | Performed | Pathologist | | | | | At | Signature | + + + + + + | VENTRICULAR | 103 | BPM | [facility] DEPT | | | RATE [...] view image for the detailed interpretation from [employer] results. | CARDIOLOGY | + + + + + + + + | Performing | Address | City/State/Zipcode | Phone Number | | Organization | | | | + + + + + | [facility] DEPT OF | [address] | [place], [place] | | | CARDIOLOGY | [address] | [address] | | + + + + + [...] [facility] | [address] | [place] [address] | | | SERVICES, CORE | PARK [...] [facility] | [address] | [place] [address] | | | SERVICES, CORE | BERTRAM [...] + + + + + | [facility] | [address] | [place] [address] | | | SERVICES, CORE | PARK [...] | + + + + + | [facility] | [address] | [place] [address] | | | SERVICES, JANELL | BERTRAM [...] [facility] | | | | | | [facility] | | | | | | [place] [address] | | | | | | [phone] | | | | | | Kaitlin [...] [facility] | [address] | [place], [place] | | | [facility] | | [id number] | | + + + + + [...] + + + + + | [facility] | [address] | [place] [address] | | | SERVICES, JANELL | [address] [...] + + CULTURE, BLOOD BACTI & YEAST [facility] (03/22/2012 7:09 PM PST) + [...] + + + + + | [facility] | [address] | [place] [address] | | | SERVICES, CORE | [address] [...] | + + + + + | [facility] | [address] | [place] [address] | | | SERVICES, CORE | [address] | | | + + + + + 12 LEAD ECG (03/22/2012 2:58 PM PST) + + + + + + | Component | Value | Ref Range | Performed | Pathologist | | | | | At | Signature | + + + + + + | VENTRICULAR | 87 | BPM | [facility] | | | RATE | | [...] | | | | | XIN GARZON (9642) | | | | | | on 03/22/2012 4:25:06 PM | | | | + + + + + + + + | Specimen | + + | | + + + + + | Narrative | Performed At | + + + | Please click | [facility] | | on view image for the detailed interpretation from [employer] results. | CARDIOLOGY | + + + + + + + + | Performing | Address | City/State/Zipcode | Phone Number | | Organization | | | | + + + + + | [facility] | [address] | [place], [place] | | | CARDIOLOGY | [address] | [address] | | + + + + + [...] [facility] | [address] | [place], [place] | | | [facility] [place] | [facility] | [address] | | | TESTS | | | [...] [facility] | [address] | [place], [place] | | | [facility]INT OF CARE | [facility] | [address] | | | TESTS | | | [...] | + + + + + | [facility] | [address] | [place] [address] | | | SERVICES, CORE | PARK [...] [facility] | [address] | [place] [address] | | | SERVICES, CORE | PARK [...] | [facility] | [address] [facility] | [place] [address] | | | SERVICES, CORE | PARK [...] [facility] | [address] | [place] [address] | | | SERVICES, CORE | [address] [...] | + + + + + | [facility]ORY | [address] | [place] [address] | | | SERVICES, CORE | [address]TR[address] [...] (H) | 60 - 99 mg/dL | [facility] - | | | GLUCOSE, [...] [facility] | [address] | [place], [place] | | | [facility]ARE | [address] | [address] | | | TESTS | | | [...] + + + + + | [facility] | [address] | [place] [address] | | | ARON, JANELL | [address] [...] (H) | 60 - 99 mg/dL | [facility] - | | | GLUCOSE, [...] [facility] | [address] | [place], [place] | | | [facility]SCAR POINT OF CARE | [address] | [address] | | | TESTS | | | [...] view image for the detailed interpretation from [employer] results. | CARDIOLOGY | + + + + + + + + | Performing | Address | City/State/Zipcode | Phone Number | | Organization | | | | + + + + + | [facility] | [address] | [place], [place] | | | CARDIOLOGY | [address] | [address] | | + + + + + [...] | + + + + + | [facility] | [address] | [place], [place] | | | [place] [facility] [place] | [address] | [address] | | | TESTS | | | | + + + + + VASC LAB ANKLE BRACH INDICS W WAVEFORM BILAT (03/21/2012 8:17 AM PST) + + + + + + | Component | Value | Ref Range | Performed | Pathologist | | | | | At | Signature | + + + + + + | [facility] | ANKLE BRACHIAL INDEX | | [...] | + + + + + | [facility] | [address] | [place] [address] | | | SERVICES, CORE | PARK [...] | + + + + + | [facility] | [address] | [place] [address] | | | SERVICES, CORE | [address]TRAM [...] + + + + + | [facility] | [address] | [place] [address] | | | SERVICES, CORE | PARK [...] | + + + + + | [facility] | [address] | [place] [address] | | | SERVICES, CORE | [address]TRAM [...] [facility] | [address] | [place] [id number] | | | JANELL SHARP | [address] [...] GARCIA | | | | | | (1864) on 03/22/2012 | | | | | | 12:47:28 PM | | | | + + + + + + + + | Specimen | + + | | + + + + + | Narrative | Performed At | + + + | Please click | [facility] | | on view image for the detailed interpretation from [employer] results. | CARDIOLOGY | + + + + + + + + | Performing | Address | City/State/Zipcode | Phone Number | | Organization | | | | + + + + + | [facility] | [address] | [place], [place] | | | CARDIOLOGY | [address] | [address] | | + + + + + [...] + + + + + | [facility] | [address] | [place] [address] | | | SERVICES, CORE | BERTRAM [...] LABORATORY | [address] | [place] [address] | | | JANELL SHARP | BERTRAM [...] 98 | 60 - 99 mg/dL | [facility] - | | | GLUCOSE, [...] [facility] | [address] | [place], [place] | | | [facility] | [address] | [address] | | | TESTS | | | [...] view image for the detailed interpretation from [employer] results. | CARDIOLOGY | + + + + + + + + | Performing | Address | City/State/Zipcode | Phone Number | | Organization | | | | + + + + + | [facility] | [address] | [place], [place] | | | CARDIOLOGY | [address] | [address] | | + + + + + [...] [facility] | [address] | [place], [place] | | | [facility] [place] | [facility] | [address] | | | TESTS | | | [...] [facility] | [address] | [place], [place] | | | [facility] CARE | [address] | [address] | | | TESTS | | | | + + + + + X-RAY PORTABLE CHEST 1 VIEW (03/20/2012 10:13 AM PST) + + + + + + | Component | Value | Ref Range | Performed | Pathologist | | | | | At | Signature | + + + + + + | X-RAY | STUDY: RI CHEST 1 VIEW | | | | [...] [facility] | [address] | [place] [address] | | | SERVICES, JANELL | [address]TRAM [...] + + + + + | [facility] | [address] [facility] | [place] [address] | | | ARON, JANELL | [address] [...] | + + + + + | [facility] | [address] | [place] [address] | | | JANELL SHARP | [address] [...] | + + + + + | [facility] | [address] | [place] [address] | | | SERVICES, CORE | [address] [...] (H) | 60 - 99 mg/dL | [facility] - | | | GLUCOSE, [...] [facility] | [address] | [place], [place] | | | [facility] | [address] | [address] | | | TESTS | | | [...] [facility] | [address] | [place], [place] | | | [place] [facility] [place] | [address] | [address] | | | TESTS | | | [...] | + + + + + | [facility] | [address] | [place] [address] | | | SERVICES, CORE | PARK [...] | + + + + + | [facility] | [address] | [place] [address] | | | JANELL SHARP | BERTRAM [...] [facility] | [address] | [place], [place] | | | [facility] | [address] | [address] | | | TESTS | | | [...] view image for the detailed interpretation from [employer] results. | CARDIOLOGY | + + + + + + + + | Performing | Address | City/State/Zipcode | Phone Number | | Organization | | | | + + + + + | [facility] | [address] | [place], [place] | | | CARDIOLOGY | [address] | [address] | | + + + + + [...] [facility] | [address] | [place], [place] | | | [facility] [place] | [address] | [address] | | | TESTS | | | [...] - [facility] | [address] | [place], [place] | | | [facility] CARE | [address] | [address] | | | TESTS | | | [...] [facility] | [address] | [place] [address] | | | SERVICES, CORE | BERTRAM [...] [facility] | [address] | [place] [address] | | | SERVICES, CORE | PARK [...] [facility] | [address] | [place] [address] | | | SERVICES, CORE | PARK [...] | + + + + + | [facility] | [address] [facility] | [place] [address] | | | SERVICES, JANELL | [address]TR[address] [...] | | | | Final | | [place] | | | | CULTURE RESULT:No growth [...] + | [facility] | [address] | [place] [address] | | | [place] | | | | + + + [...] + + + + + | [facility] | [address] | [place] [address] | | | SERVICES, CORE | BERTRAM [...] [facility] | [address] | [place] [address] | | | SERVICES, CORE | PARK [...] [facility] | [address] | [place] [address] | | | JANELL SHARP | BERTRAM [...] [facility] | [address] | [place] [address] | | | SERVICES, CORE | PARK [...] + | [facility] | [address] | [place] [address] | | | SERVICES, CORE | PARK [...] - [facility] | [address] | [place], [place] | | | [facility] | [address] | [address] | | | TESTS | | | [...] | + + + + + | [facility] | [address] | [place] [address] | | | SERVICES, CORE | BERTRAM [...] [facility] | [address] | [place], [place] | | | [facility] | [address] | [address] | | | TESTS | | | [...] [facility] | [address] | [place] [address] | | | SERVICESJANELL | [address] [...] | + + + + + | [facility] | [address] | [place] [address] | | | SERVICES, CORE | BERTRAM [...] (H) | 60 - 99 mg/dL | [facility] - | | | GLUCOSE, | | [...] [facility] | [address] | [place], [place] | | | [facility] | [address] | [address] | | | TESTS | | | | + + + + + OPERATION RECORD (03/18/2012 11:22 AM PST) + + | Transcriptions | + + | Mirela Salgado MD - 03/18/2012 8:38 AM PST Date: 03/17/2012ttending | | Surgeon: Mirela Salgado M.D.Hand Sign Writer(s): Sanodval | | Bennett Galvez M.D.Preoperative Diagnosis(es):Embolus, right [...] | | tolerated the procedure well.MIRELA SALGADO, [facility] Hospitalessor of SurgeryFIRSTHEALTH [facility] / [id number] / | | [id number] / [phone] / T: 03/17/2012 | |was no pulse. 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 storekeeper | | | |[facility] / | |[id number] / [id number] / [id number] / | | | | | + + HEPARIN, EITHER STANDARD / LMW, BLOOD (03/18/2012 10:26 AM [facility]) + +-------+ + + + | Component [...] + + + + + | [facility] | [address] | [place] [address] | | | ARON, CORE | BERTRAM [...] [facility] | [address] | [place] [address] | | | SERVICES, JANELL | BERTRAM [...] [facility] | [address] | [place] [address] | | | SERVICES, CORE | PARK [...] [facility] | [address] | [place] [address] | | | SERVICES, CORE | PARK [...] [facility] | [address] | [place] [address] | | | SERVICES, CORE | PARK [...] LABORATORY | [address] | [place] [address] | | | SERVICES, CORE | PARK [...] | + + + + + | [facility] | [address] | [place] [address] | | | SERVICES, CORE | BERTRAM [...] S[facility]ERS | [address] | [place], [place] | | | [facility] | [address] | [address] | | | TESTS | | | [...] [facility] | [address] | [place], [place] | | | [facility] CARE | [address] | [address] | | | TESTS | | | [...] (H) | 60 - 99 mg/dL | [facility] - | | | GLUCOSE, | | [...] [facility] | [address] | [place], [place] | | | [facility] CARE | [address] | [address] | | | TESTS | | | [...] [facility] | [address] | [place] [address] | | | SERVICES, JANELL | BERTRAM [...] + + + + + | [facility] | [address] [facility] | [place] [address] | | | SERVICES, CORE | PARK [...] | + + + + + | [facility] | [address] | [place] [address] | | | SERVICES, CORE | BERTRAM [...] [facility] | [address] | [place] [address] | | | ARON, JANELL | PARK [...] (H) | 60 - 99 mg/dL | [facility] - | | | GLUCOSE, [...] - [facility] | [address] | [place], [place] | | | [facility] POINT OF CARE | [address] | [address] | | | TESTS | | | [...] [facility] | [address] | [place] [address] | | | SERVICES, | [address] [...] [facility] | [address] | [place] [address] | | | SERVICES, | [address] [...] | + + + + + | [facility] | [address] | [place] [address] | | | JANELL SHARP | BERTRAM [...] (H) | 60 - 99 mg/dL | [facility] - | | | GLUCOSE, [...] + + + | [facility] | [address] | [place], [place] | | | [facility] | [address] | [address] | | | TESTS | | | [...] | | + +---------+ + + | [facility] DEPARTMENT OF | | | [...] MARILYN | [address] | [place], [place] | | | [facility] [place] | [facility] | [address] | | | TESTS | | | [...] (H) | 60 - 99 mg/dL | [facility] - | | | GLUCOSE, [...] [facility] | [address] | [place], [place] | | | [facility] POINT OF CARE | [address] | [address] | | | TESTS | | | [...] + + + + + | [facility] | [address] | [place] [address] | | | SERVICES, CORE | BERTRAM [...] + + | [facility] | [address] | [place], [place] | | | [facility] | [address] | [address] | | | TESTS | | | [...] | + + + + + | [facility] | [address] [facility] [facility] | [place] [address] | | | SERVICES, CORE | PARK [...] [facility] | [address] | [place] [address] | | | SERVICES, CORE | PARK [...] [facility] | [address] | [place] [address] | | | SERVICESJANELL | [address] [...] | + + + + + | [facility] | [address] | [place] [address] | | | SERVICES, CORE | BERTRAM [...] SANDERS | [address] | [place], [place] | | | [facility] CARE | [address] | [address] | | | TESTS | | | [...] MARILYN | [address] | [place], [place] | | | [facility] [place] [facility] | [address] | [address] | | | TESTS | | | [...] | | + +---------+ + + | [facility] DEPARTMENT OF | | | [...] Kirstie | | | | | | Damar[place]otta | | | | + + + + + + + + | Specimen | + + | | + + + +---------+ + + | Performing | Address | City/State/Zipcode | Phone Number | | Organization | | | | + +---------+ + + | [facility] DEPARTMENT OF | | | [...] [facility] | [address] | [place], [place] | | | [facility] | [address] | [address] | | | TESTS | | | [...] DAVIDAM | [address] | [place], [place] | | | [facility] | [address] | [address] | | | TESTS | | | [...] + + + + + | [facility] | [address] | [place] [address] | | | SERVICES, SPECIAL | PARK [...] | [facility] | [address] [facility] [facility] [facility] | [place] [address] | | | SERVICES, SPECIAL | BERTRAM [...] [facility] | [address] | [place] [address] | | | SERVICES, SPECIAL | PARK [...] [facility] | [address] | [place] [address] | | | SERVICES, SPECIAL | PARK [...] | [facility] | [address] [facility] [facility] [facility] | [place] [address] | | | ARON, JANELL | BERTRAM [...] + + + + + | [facility] | [address] | [place] [address] | | | SERVICES, CORE | BERTRAM [...] [facility] | [address] | [place] [address] | | | SERVICES, CORE | PARK [...] + + + + + | [facility] | [address] [facility] | [place] [address] | | | ARON, JANELL | BERTRAM [...] MARILY[facility] | [address] | [place], [place] | | | [facility] | [address] | [address] | | | TESTS | | | [...] | + + + + + | [facility] | [address] | [place] [address] | | | SERVICES, CORE | BERTRAM [...] SANDERS | [address] | [place], [place] | | | [place] [facility] [place] | [facility] | [address] | | | TESTS | | | [...] MARILYN | [address] | [place], [place] | | | [facility] CARE | [address] | [address] | | | TESTS | | | [...] Davina | | | | | | [place] | | | | + + + [...] [facility] | [address] | [place], [place] | | | [facility] | [address] | [address] | | | TESTS | | | [...] + + + + | PRODUCT | [id number] | | [facility] | | | UNIT [...] + + + + | BLOOD | 39439 | | [facility] | | | PRODUCT [...] + + + + + | [facility] | [address] | [place] [address] | | | PATHOLOGY | [address] [...] + + + + | PRODUCT | [id number] | | [facility] | | | UNIT [...] + + + + | BLOOD | 59435 | | [facility] | | | PRODUCT [...] DEPARTMENT OF | [address] | [place] [address] | | | PATHOLOGY | [address] [...] [facility] | [address] | [place] [address] | | | SERVICES, CORE | PARK [...] - [facility] | [address] | [place], [place] | | | [facility] | [address] | [address] | | | TESTS | | | [...] SANDERS | [address] | [place], [place] | | | [place] [facility] [facility] [place] | [address] | [address] | | | TESTS | | | [...] + + | [facility] | [address] | [place] [address] | | | SERVICES, CORE | BERTRAM [...] [facility] | [address] | [place] [address] | | | SERVICES, CORE | PARK [...] + + + + + | [facility] | [address] | [place] [address] | | | SERVICES, CORE | BERTRAM [...] | | If supplementation does | | [facility] | | | | not correct consider [...] if | | | | | | [id number] >400: | | | | | | [...] + | [facility] | [address] | [place] [address] | | | [place] | | | [...] [facility] | [address] | [place] [address] | | | SERVICES, CORE | PARK [...] [facility] | [address] | [place] [address] | | | SERVICES, CORE | PARK [...] + + + + + | [facility] | [address] | [place] [address] | | | SERVICES, CORE | BERTRAM [...] - | | | | | | [place] | | + + + + + + + + | Specimen | + + | Blood - Blood | + + + + + + + | Performing | Address | City/State/Zipcode | Phone Number | | Organization | | | | + + + + + | [facility] | [address] | [place] [address] | | | [place] | | | | + + + [...] [facility] | [address] | [place], [place] | | | [facility] | [address] | [address] | | | TESTS | | | [...] [facility] | [address] | [place] [address] | | | SERVICES, CORE | PARK [...] | + + + + + | [facility] | [address] | [place] [address] | | | SERVICES, CORE | BERTRAM [...] - DAVIDAM | [address] | [place], [place] | | | [facility] | [address] | [address] | | | TESTS | | | [...] | + + + + + | [facility] | [address] | [place] [address] | | | SERVICES, CORE | BERTRAM [...] gas. | | | | | | Jzvqvl-fz-hcllmg left | | | | | | [...] [facility] | [address] | [place], [place] | | | [place] [facility] [place] | [address] | [address] | | | TESTS | | | [...] % | [facility] | | | | [facility],[address] | | REG UNIV | | | | Chipsilvana Card, [facility],[place] | | PTH - INTFC | | | | [address] | | | | | | [phone].[employer]. | | | | | | Kaitlin [...] [facility] | [address] | [place], [place] | | | UNIV PTH - INTFC | | [address] | | + + + + + [...] + + + + + | [facility] | [address] [facility] | [place] [address] | | | SERVICES, CORE | BERTRAM [...] + + + + + | [facility] | [address] | [place] [address] | | | SERVICES, CORE | BERTRAM [...] [facility] | [address] | [place], [place] | | | [facility] [place] | [address] | [address] | | | TESTS | | | [...] | + + + + + | [facility] | [address] | [place] [address] | | | ARON, CORE | PARK [...] | + + + + + | [facility] | [address] | [place] [address] | | | SERVICES, CORE | BERTRAM [...] (H) | 60 - 99 mg/dL | [facility] - | | | GLUCOSE, [...] + + + | [facility] | [address] | [place], [place] | | | [facility] | [address] | [address] | | | TESTS | | | [...] + + + + + | [facility] | [address] | [place] [address] | | | SERVICES, CORE | PARK [...] + + + + + | [facility] | [address] | [place] [address] | | | SERVICES, CORE | BERTRAM [...] | + + + + + | [facility] | [address] | [place] [address] | | | SERVICES, CORE | BERTRAM [...] | + + + + + | [facility] | [address] | [place] [address] | | | SERVICES, CORE | PARK [...] [facility] | [address] | [place] [address] | | | SERVICES, CORE | PARK [...] | + + + + + | [facility] | [address] | [place] [address] | | | SERVICES, CORE | PARK [...] + | [facility] | [address] | [place] [address] | | | [place] | | | [...] | | | Final CULTURE | | [place] | | | | RESULT:Salmonella, | | [...] + | [facility] | [address] | [place] [address] | | | [place] | | | [...] | + + + + + | [facility] | [address] | [place] [address] | | | SERVICES, CORE | BERTRAM [...] (H) | 60 - 99 mg/dL | [facility] - | | | GLUCOSE, [...] [facility] | [address] | [place], [place] | | | [facility] [place] | [address] | [address] | | | TESTS | | | [...] [facility] | [address] | [place], [place] | | | CARDIOLOGY | [address] | [address] | | + + + + + [...] [facility] | [address] | [place] [address] | | | SERVICES, CORE | [address] | | | + + + + + CULTURE, BLOOD BACTI & YEAST [facility] (03/12/2012 9:50 PM PST) + [...] + + + + + | [facility] | [address] | [place] [address] | | | SERVICES, CORE | BERTRAM [...] [facility] | [address] | [place] [address] | | | SERVICES, CORE | PARK [...] | + + + + + | [facility] | [address] [facility] | [place] [address] | | | SERVICES, CORE | PARK [...] - MAR[facility] | [address] | [place], [place] | | | [facility] | [facility] | [address] | | | TESTS | | | [...] [facility] | [address] | [place] [address] | | | SERVICES, CORE | PARK [...] [facility] | [address] | [place] [address] | | | SERVICES, CORE | PARK [...] [facility] | [address] | [place] [address] | | | SERVICES, | [address] [...] + + + + + | [facility] | [address] [facility] | [place] [address] | | | SERVICES, | [address] [...] | + + + + + | [facility] | [address] | [place] [address] | | | SERVICES, CORE | BERTRAM [...] [facility] | [address] | [place] [address] | | | JANELL SHARP | PARK [...] + + + + + | [facility] | [address] | [place] [address] | | | JANELL SHARP | B[address]TRAM [...]
--- OUTSIDE RECORDS SUMMARY | ~2019-02-11 | XMS | Clinical Summary ---
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
--- OUTSIDE RECORDS SUMMARY | ~2019-02-11 | XMS | Encounter Summary ---
Demographics + + + | Address | [address] | | | [place] [address] | + + + | Home Phone | | + + + | Preferred Language | Unknown | + + + | Marital Status | | + + + | Restorationist Affiliation | NRP | + + + [...] [place], [place] | | | | | [address] | | + + + + + | Cami Sawyer | ECON | Unknown | | + + + + + Care Team Providers + +------+ + | Care Cns Name | Role | Phone | + [...] | | 2016 | | Center at [facility] [address] | | - General | | | | [address] | | | | | | Mailcode: Center | | | | | | [facility] and | | | | | | [facility], [facility] [address] | | | | | | [place], [place] | | | | | | [address] | | | | | | [phone] | | | +--------+ + + + [...]
--- OUTSIDE RECORDS SUMMARY | ~2019-02-11 | XMS | Encounter Summary ---
Demographics + + + | Address | [address] | | | [place] [address] | + + + | Home Phone [...] | Author | [facility] | + + + | Organization | [facility] | + + + | Address | Unknown | + + + | Phone | Unavailable | + + + Support + + + + + | Name | Relationship | Address | Phone | + + + + + | Kole Willingham | [place] | [address] | | | | | [place], [place] | | | | | [address] | | + + + + + | Cami Sawyer | ECON | Unknown | | + + + + + Care Team Providers + +------+ + | Care Computer Forensics Analyst Name | Role | Phone | [...] | | | | | Procedures | [place], [place] | [facility] | | | | | CONSULT TO | [address] | for Health | | | | | GI PROCEDURE | Phone: | and Healing, | | | | | UNIT: | [phone] | [address] | | | | | FLEXIBLE | Fax: | [place], [place] | | | | | [facility] | [phone] | [address] | | | | | [place] | | Phone: | | | | | [facility] | | [phone] | | | | | Y,BIOPSY | | Fax: | | | | | | | [phone] | +--------+--------+ + + + + Reason [...] schedule tests | | 2016 | | [place] [facility] [address] | [address] | | | | | [address] | [facility], | | | | | Mailcode: [place] | [place] [address] | | | | | [facility] and | [phone] | | | | | [place] [address] | | | | | | [place], [place] | | | | | | [address] | | | | | | [phone] | | | +--------+ + + + [...]
--- OUTSIDE RECORDS SUMMARY | ~2019-02-11 | XMS | Clinical Summary ---
Demographics + + + | Address | [address] | | | [place] [address] | + + + | Home Phone | | + + + | Preferred Language | Unknown | + + + | Marital Status | | + + + | Church Affiliation | Unknown | + + + | Race | Unknown | + + + | Ethnic Group | Unknown | + + + Author + + + | Author | [facility] (Historical as of | | | 11-25-18) | + + + | Organization | [facility] (Historical as of | | | 11-25-18) [...] Team Providers + +------+ + | Care Landscape Architect And Planner Name | Role | Phone | + [...] Overview: Added automatically from request for surgery [id number] | + + + + + | [...] | Stricture esophagus dilated with bougue 20 [place] 04/21/2014 | 04/22/2014 | + + + [...] +------+-------+ + | MEDICARE | MEDICA | [id number] | | | [address] | | | RE | | | | [place] [address] | | | IP-OP | | | | | + +--------+ +------+-------+ + | [facility] | [place] | [id number] | | | | | | | [...] Self | [birth year] | Home: | [address] | | | al/Fam | | 1956 | [phone] | [place] | | | bianca | | | [phone] | [address] | + +--------+ +--------+ + +
--- OUTSIDE RECORDS SUMMARY | ~2019-02-11 | XMS | Encounter Summary ---
Demographics + + + | Address | [address] | | | [place] [address] | + + + | Home Phone [...] [place], [place] | | | | | [address] | | + + + + + | Cami Sawyer | ECON | Unknown | | + + + + + Care Team Providers + +------+ + | Care Vessel Captain Name | Role | Phone | + [...] [address] | | | | | [place], [place] | [address] | | | 05/13/ | | | [place], [place] | | | 2014 | | [phone] | [address] | | | | | | [phone] | | | | | | | | | | | | Jf Wiseman MD | | | | | | [address] | | | | | | [address] | | | | | | [place], [place] | | | | | | [address] | | | | | | [phone] | | | | | | | [...] might be different f rom the original. [facility] DEPARTMENT OF SURGERY EMERGENCY GENERAL SURGERY [...] continued to progress and is discharged to alf facility for [facility] care. Mackenzie Hartley is discharged in [...] 100mls three times a day. Destination: Destination: [facility] Facility Thank you for the opportunity to [...] might be different f rom the original. 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 She [...] diet Discharge Plan: [place] [id number] pager number 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 S he [...] thrombosis while anticoagulated with warfarin transferred to [facility] from [facility] for management of retroperitoneal bleed. She is [...] know if she wants to see the [facility] GI team - Stage I pressure wound: [...] recommending [facility] since would be close to [facility] and she would benefit for aggres sive [...] with complication 03/12/2012 Jean-Claude Albrecht D.M.D., M.D. [facility] [address] [place] [address] This assessment and plan was formulated both [...] MD - 05/11/2014 8:51 AM PST . 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 S he [...] thrombosis while anticoagulated with warfarin transferred to [facility] from [facility] for management of retroperitoneal bleed. She is [...] know if she wants to see the [facility] GI team - Stage I pressure wound: [...] recommending [facility] since would be close to [facility] and she would benefit for aggres sive [...] with complication 03/12/2012 Jean-Claude Albrecht D.M.D., M.D. [facility] [address] [place] [address] This assessment and plan was formulated both [...] being active. Pt's has been at the [facility] supporting her. Pt is not bahai but appreciates support. Intervention: Provided a listening presence and explored pt's anxieties, worries and hopes. Plan: Spiritual care remains available. 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 S he [...] thrombosis while anticoagulated with warfarin transferred to [facility] from [facility] for management of retroperitoneal bleed. She is [...] know if she wants to see the [facility] GI team - Stage I pressure wound: [...] recommending SONIAA since would be close to [facility] and she would benefit for aggres sive [...] intestine with complication 03/12/2012 ANDREW VINCENT MD [facility] [address] [place] [address] This assessment and plan was [...] note might be different from the orig [facility]. 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 S he [...] thrombosis while anticoagulated with warfarin transferred to [facility] from [facility] for management of retroperitoneal bleed. She is [...] know if she wants to see the [facility] GI team - Stage I pressure wound: [...] recommending [facility] since would be close to [facility] and she would benefit for aggres sive [...] intestine with complication 03/12/2012 ANDREW VINCENT MD [facility] [address] [place] [address] This assessment and plan was [...] might be different from the orig inal. 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 S he [...] TROPONIN Imaging No new Cultures BLOOD CULTURE [facility] (no units) Date Value Range Status 04/26/2014 [...] thrombosis while anticoagulated with warfarin transferred to [facility] from [facility] for management of retroperitoneal bleed. She is [...] know if she wants to see the [facility] GI team - Stage I pressure wound: [...] recommending SONIAA since would be close to [facility] and she would benefit for aggres sive [...] intestine with complication 03/12/2012 ANDREW VINCENT MD [facility] [address] [place] [address] This assessment and plan was formulated [...] this note might be different from the 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 S he [...] TROPONIN Imaging No new Cultures BLOOD CULTURE [facility] (no units) Date Value Range Status 04/26/2014 [...] thrombosis while anticoagulated with warfarin transferred to [facility] from [facility] for management of retroperitoneal bleed. She is [...] intestine with complication 03/12/2012 ANDREW VINCENT MD [facility] [address] [place] [address] This assessment and plan was formulated both [...] note might be different from the orig [facility]. 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 S he [...] TROPONIN Imaging No new Cultures BLOOD CULTURE [facility] (no units) Date Value Range Status 04/26/2014 [...] thrombosis while anticoagulated with warfarin transferred to [facility] from [facility] for management of retroperitoneal bleed. She is [...] continued DHT,TF - Diet: NPO - per CUSTOMS BROKERAGE MANAGER, high risk of aspiration - continue ice [...] intestine with complication 03/12/2012 ANDREW VINCENT MD [facility] [address] [place] [address] This assessment and plan was formulated both [...] might be different from the orig inal. 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 S he [...] TROPONIN Imaging No new Cultures BLOOD CULTURE [facility] (no units) Date Value Range Status 04/26/2014 [...] thrombosis while anticoagulated with warfarin transferred to [facility] from [facility] for management of retroperitoneal bleed. She is [...] intestine with complication 03/12/2012 ANDREW VINCENT MD [facility] [address] [place] [address] This assessment and plan was [...] the resident s note. PHIL VARMA MD [facility] [address] [place] [address] oRsa Sauer MD - 05/04/2014 8:26 AM PST [...] at referring hospital. She was transferred to [facility] f or active hemorrhage and underwent [...] rounds. Rosa Reynoso, R2 SICU/Trauma Personal pager: [phone] Team pager: [phone] Angeles Acevedo MD - 05/04/2014 7:08 AM PST [facility] DEPARTMENT OF SURGERY EGS ICU Progress Note Division of Trauma and Critical Care ID: Mackenzie Hartley is a 58 year old female with COPD, Crohn's disease, chronic pain, and 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 while anticoagulated with warfarin transferre d to [facility] from [facility] for management of retroperitoneal bleed. She is [...] thrombosis while anticoagulated with warfarin transferred to [facility] from [facility] for management of retroperitoneal bleed. She has required repeated transfers to ICU for respiratory status. She has been diuresed ap propriately while in the ICU and O2 needs have decreased significantly. Will transfer to [facility] or, but need to keep a close [...] Hannah MD General Surgery Resident, R3 Pager [phone] [facility] [place] [phone] [address] [facility] [phone] Jf Jones MD - 05/03/2014 9:38 AM [...] - TF at goal, + BM Dysphagia: CUSTOMS BROKERAGE MANAGER following- remains NPO Anasarca: compression socks,. Goal [...] Call team 01/11 for questions: Team Pager [phone] ATTENDING ADDENDUM: I saw and examined Mackenzie [...] Erin Christensen PA-C. Jf Wiseman MD FACS whiteprinting machine operator Division of Trauma, Critical Care, and Acute Care Surgery [id number] Elda Emmanuel MD - 05/03/2014 3:49 AM PST EMERGENCY GENERAL SURGERY ICU PROGRESS NOTE: Attending Physician: Jf Wiseman MD 05/03/2014 ID: Mackenzie Hartley is a 58 year old female with COPD, Crohn's disease, chronic pain, and coagulopa thy resulting in splenic artery thrombosis while anticoagulated with warfarin transferred to [facility] from [facility] for management of retroperitoneal bleed. She is [...] thrombosis while anticoagulated with warfarin transferred to [facility] from [facility] for management of retroperitoneal bleed. 1. Neuro: [...] this patient encounter. Elda Glez MD Pager [phone] Plastic Surgery R2 [facility] Diagnoses: 555.2 Crohn's disease of both small [...] holding Q6W Remicade- will consult hematology in [facility] [place] week regarding of timing of resuming remicade Severe malnutrition: - TF at goal, + BM, Dysphagia: CUSTOMS BROKERAGE MANAGER following- remains NPO Anasarca: compression socks,. Goal [...] Call team 01/11 for questions: Team Pager [phone] ATTENDING ADDENDUM: I saw and examined Mackenzie [...] Marge Harris PA-C. Jf Wiseman MD FACS whiteprinting machine operator Division of Trauma, Critical Care, and Acute Care Surgery [phone] GIAHarAngeles oglesby MD - 05/02/2014 6:55 AM PST [facility] DEPARTMENT OF SURGERY EGS ICU Progress Note Division of Trauma and Critical Care ID: Mackenzie Hartley is a 58 year old female with COPD, Crohn's disease, chronic pain, and 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 while anticoagulated with warfarin transferre d to [facility] from [facility] for management of retroperitoneal bleed. She is [...] thrombosis while anticoagulated with warfarin transferred to [facility] from [facility] for management of retroperitoneal bleed. Neuro: Minimize [...] Hannah MD General Surgery Resident, R3 Pager [phone] [place] [phone] arris, Angeles Hanna MD - 05/02/2014 2:14 [...] Hannah MD General Surgery Resident, R3 Pager [phone] ean-Claude Albrecht DMD, MD - 05/01/2014 10:36 AM PST [facility] DEPARTMENT OF SURGERY EGS Progress Note ID: Mackenzie Hartley is a 58 year old female with COPD, Crohn's disease, chronic pain, and 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 while anticoagulated with warfarin transferre d to [facility] from [facility] for management of retroperitoneal bleed. She is [...] thrombosis while anticoagulated with warfarin transferred to [facility] from [facility] for management of retroperitoneal bleed. Overall, she is improving. However, remains tachycardic with leukocytosis - WBC [address] 05/01 showed - moderate ascites and pleural effusions and hematoma. Neuro: dilaudid IV PRN Speech: following continue daily to eval swallow CV: HD stable L NET WASHER PSA resolved Continue IV lasix today 20 [...] acute care hospitalization Jean-Claude Albrecht D.M.D., M.D. [facility] [place] [address] [place] [address] Jf Jones MD - 04/30/2014 11:08 AM [...] at referring hospital. She was transferred to [facility] fo r active hemorrhage and underwent [...] malnutrition: - pulled DHT- refusing replacement. Await CUSTOMS BROKERAGE MANAGER eval if passes swallow will give chance to prove adequate po intake. Expect will require TFs again Dysphagia: await CUSTOMS BROKERAGE MANAGER eval today. Cont meds and feed via [...] Call team 01/11 for questions: Team Pager [phone] ATTENDING ADDENDUM: I saw and examined Mackenzie [...] Marge Harris PA-C. Jf Wiseman MD FACS whiteprinting machine operator Division of Trauma, Critical Care, and Acute Care Surgery [phone] Angeles Acevedo MD - 04/30/2014 1:18 AM PST [facility] DEPARTMENT OF SURGERY EGS ICU Progress Note Division of Trauma and Critical Care ID: Mackenzie Hartley is a 58 year old female with COPD, Crohn's disease, chronic pain, and 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 while anticoagulated with warfarin transferre d to [facility] from [facility] for management of retroperitoneal bleed. She is [...] 2 mg, 2 mg, feeding tube, QPM, Gaytari Christensen PA-C, 2 mg at 04/29/142038 zinc [...] thrombosis while anticoagulated with warfarin transferred to [facility] from [facility] for management of retroperitoneal bleed. Overall, she is improving. However, remains tachycardic with leukocytosis -- difficult to t ease out if this is secondary to asplenia. Will obtain CT abd pelvis today to clarify. Neuro: dilaudid IV PRN and intermittent versed for sedation CV: HD stable L NET WASHER PSA resolved Pulm: titrate to O2 >92% [...] Hannah MD General Surgery Resident, R3 Pager [phone] [facility] [place] [address] [address] [facility] [phone] Aravind Morales MD - 04/29/2014 11:43 AM PSTICU Attending: I saw and examined Mackenzie Hartley ([id number]) with Erin Christensen PA-C on 04/29/14 and [...] of time documented by Kaci Massey MD Dry Pan Feeder Trauma, Critical Care & Acute Care Surgery [...] at referring hospital. She was transferred to [facility] fo r active hemorrhage. Hospital Day [...] resolving cont current H2O via DHT Dysphagia: CUSTOMS BROKERAGE MANAGER consulted, ice chips only. Cont meds and [...] Call team 01/11 for questions: Team Pager [phone] Chelly Blum MD,M PH - 04/28/2014 3:03 [...] at referring hospital. She was transferred to [facility] fo r active hemorrhage. Hospital Day [...] Hyernatremia: resolving, reduce H2O to 30ml/hr Dysphagia: CUSTOMS BROKERAGE MANAGER consulted, ice chips only. Cont meds and [...] Call team 01/11 for questions: Team Pager [phone] Angeles Acevedo MD - 04/28/2014 5:18 AM PST [facility] DEPARTMENT OF SURGERY EGS ICU Progress Note Division of Trauma and Critical Care ID: Mackenzie Hartley is a 58 year old female with COPD, Crohn's disease, chronic pain, and 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 while anticoagulated with warfarin transferre d to [facility] from [facility] for management of retroperitoneal bleed. She is s/p ex lap, splenectomy, and packing with lap pads at OSH and from reopening of laparotomy, evacua tion of 2-3 L of intraabdominal hematoma, closure of open abdomen SUBJECTIVE: Extubated, neurologically doing much better. 3 L NC Underwent successful thrombin injection of L NET WASHER pseudoaneurysm by IR 04/26 MEDICATIONS: Current facility-administered [...] thrombosis while anticoagulated with warfarin transferred to [facility] from [facility] for management of retroperitoneal bleed. Neuro: dilaudid IV PRN and intermittent versed for sedation CV: HD stable Per vascular: arterial duplex of L NET WASHER to assess for stability of PSA shows [...] Hannah MD General Surgery Resident, R3 Pager [phone] [facility] [place] [address] [place] [address] Xin Irizarry M D - 04/27/2014 11:55 [...] diagnosti c imaging and laboratory study results [facility] DEPARTMENT: [id number] - HEM FACULTY [facility] Place of Service: - Inpatient Date of Service: 04-27-2014 Modifiers: GC - Resident Involved Suggested CPT: 39793 - Initial, Comp; Mod complex 50 min XIN AGEE MD [facility] [address] [place] [address] wpriya Rudy Markham Adriel - 04/27/2014 11:55 AM PST Hematology Consult Progress Note Primary Service: EGS Primary Attending: Jf Wiseman MD Hospital Length of Stay: 4 Interval Events: - extubated - thrombin injection to NET WASHER pseudoaneurysm - heparin gtt started last night Subjective: Patient is unable to provide history as she remains encephalopathic. Did speak with her , who confirmed history obtained in initial heme consult note. States she givens s been on warfarin since her 2011 [facility] admission with no known thrombotic events since [...] assessme nt and plan. Rudy Sarmiento, DO [facility] Internal Medicine PGY3 Pager [phone] Mirela Josue MD - 04/27/2014 10:49 AM PST [facility] Department of Surgery Progress Note Author: Lucy [...] underwent successful thrombin injection of the left NET WASHER pseudoaneurysm by IR last night. Heparin restarted [...] ultraso und guided thrombin injection of left NET WASHER pseudoanuerysm. Will order arterial duplex of left NET WASHER to assess for stability of pseudoaneurysm Monitor [...] - hemorrhage vs HCAP LUCY MARKS MD [address] [place] [address] This assessment and plan was formulated both independently and in conjunction with the [facility] ular Surgery Team as well as the attending provider of record above regarding management of this patient and their medical issues. It is accurate to the best of my knowledge, and is s ubject to modification based on clinical developments, new data, or final imaging results. [facility] staff I saw and evaluated the patient. I agree with the findings and the plan of care as petern laxmi in the resident s note. Left femoral pseudoaneurysm appears resolved. Stable from [facility] standpoint. No further imaging required unless clinical status changes. Mirela Thompson M.D. [facility] Vascular Surgery [address] [place] [address] Email: [email or web address] Jf Jones MD - 04/27/2014 8:03 AM [...] at referring hospital. She was transferred to [facility] fo r active hemorrhage. Hospital Day [...] H2O Hyernatremia: water 100ml/hr via DHT Dysphagia: CUSTOMS BROKERAGE MANAGER consulted, ice chips only JULIANE: ATN from [...] Call team 01/11 for questions: Team Pager [phone] ATTENDING ADDENDUM: I saw and examined Mackenzie [...] Erin Christensen PA-C. Jf Wiseman MD FACS whiteprinting machine operator Division of Trauma, Critical Care, and Acute Care Surgery [id number] aElda tejada MD - 04/27/2014 4:52 AM PST EMERGENCY GENERAL SURGERY ICU PROGRESS NOTE: Attending Physician: Jf Wiseman MD 04/27/2014 ID: Mackenzie Hartley is a 58 year old female with COPD, Crohn's disease, chronic pain, and coagulopa thy resulting in splenic artery thrombosis while anticoagulated with warfarin transferred to [facility] from [facility] for management of retroperitoneal bleed. She is [...] HR EVENTS: - Incidentally found to have NET WASHER pseudoaneurysm, injected with thrombin by IR - [...] thrombosis while anticoagulated with warfarin transferred to [facility] from [facility] for management of retroperitoneal bleed. Neuro: oxy [...] this patient encounter. Elda Glez MD Pager [phone] Plastic Surgery R2 [facility] Diagnoses: 555.2 Crohn's disease of both small [...] Attending:Dr. Lenny Calhoun MD (Fellow)/pager: Dr. Vang [phone] Medications Procedure Meds: Dilaudid IV 0.5mg Midazolam [...] at referring hospital. She was transferred to [facility] fo r active hemorrhage. Hospital Day [...] Call team 01/11 for questions: Team Pager [phone] Angeles Acevedo MD - 04/26/2014 5:24 AM PST [facility] DEPARTMENT OF SURGERY EGS ICU Progress Note Division of Trauma and Critical Care ID: Mackenzie Hartley is a 58 year old female with COPD, Crohn's disease, chronic pain, and 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 while anticoagulated with warfarin transferre d to [facility] from [facility] for management of retroperitoneal bleed. She is [...] thrombosis while anticoagulated with warfarin transferred to [facility] from [facility] for management of retroperitoneal bleed. Neuro: dilaudid [...] Hannah MD General Surgery Resident, R3 Pager [phone] [facility] [place] [address] [facility] [phone] ithya Bailey MD - 04/25/2014 6:40 AM PSTTSICU Attending 04/25/14 58 yo woman critically ill with complex surgical and medical history, transferred to [facility] intraabdominal and retroperitoneal hemorrhage 2 days [...] Call team 01/11 for questions: Team Pager [phone] Angeles Acevedo MD - 04/25/2014 4:39 AM PST [facility] DEPARTMENT OF SURGERY EGS ICU Progress Note Division of Trauma and Critical Care ID: Mackenzie Hartley is a 58 year old female with COPD, Crohn's disease, chronic pain, and 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 while anticoagulated with warfarin transferre d to [facility] from [facility] for management of retroperitoneal bleed. She is [...] thrombosis while anticoagulated with warfarin transferred to [facility] from [facility] for management of retroperitoneal bleed. Neuro: dilaudid [...] Hannah MD General Surgery Resident, R3 Pager [phone] [facility] [place] [address] Rich Pappas MD - 04/24/2014 9:21 AM [...] extubate Initial surgical contact: Miladis at pager [phone] Nithya Andres MD - 04/24/2014 5:25 AM [...] exploration at referring hospital. IR embolization at [facility]. 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 She is [...] thrombosis while anticoagulated with warfarin transferred to [facility] from [facility] for management of retroperitoneal bleed. 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 MEDICATIONS: Fentanyl IV 150 mcg Midazolam IV [...] | + +--------+ + + + | [facility] PORTABLE | Routin | 04/27/2014 | [...] | + + + + + | [facility] | [address] | [place] [address] | | | JANELL SHARP | [address] [...] [facility] | [address] | [place], [place] | | | [facility] | [address] | [address] | | | TESTS | | | [...] [facility] | [address] | [place] [address] | | | SERVICES, CORE | PARK [...] [facility] | [address] | [place] [address] | | | SERVICES, CORE | PARK [...] | + + + + + | [facility] | [address] [facility] | [place] [address] | | | RAON, JANELL | [address] | | | [...] [facility] | [address] | [place], [place] | | | [place], POINT OF CARE | [address] | [address] | | | TESTS | | | [...] [facility] | [address] | [place], [place] | | | [facility] | [address] | [address] | | | TESTS | | | [...] | + + + + + | [facility] | [address] | [place] [address] | | | SERVICES, CORE | [address] | | | + + + + + MAGNESIUM, PLASMA (05/12/2014 1:07 AM PST) + +---------+ + + + | Component | Value | Ref Range | Performed | Pathologist | | | | | At | Signature | + +---------+ + + + | MAGNESIUM,P | 1.5 (L) | 1.8 - 2.5 mg/dL | [facility] | | | JFMA | | | [...] | + + + + + | [facility] | [address] [facility] | [place] [address] | | | SERVICES, CORE | [address] [...] the MDRD equation recommended by the | [facility] | | National Kidney Disease Education Program. [...] | + + + + + | [facility] | [address] | [place] [address] | | | JANELL SHARP | BERTRAM [...] | + + + + + | [facility] | [address] | [place] [address] | | | JANELL SHARP | BERTRAM [...] - [facility] | [address] | [place], [place] | | | [facility] | [address] | [address] | | | TESTS | | | [...] (H) | 60 - 99 mg/dL | [facility] - | | | GLUCOSE, | | [...] SANDERS | [address] | [place], [place] | | | [facility] | [address] | [address] | | | TESTS | | | [...] | + + + + + | [facility] | [address] | [place] [address] | | | SERVICES, CORE | PARK [...] | + + + + + | [facility] | [address] | [place] [address] | | | SERVICES, CORE | BERTRAM [...] | + + + + + | [facility] | [address] | [place] [address] | | | SERVICES, CORE | PARK [...] (H) | 0.90 - 1.20 INR | [facility] | | | | | | LABORATORY [...] | + + + + + | [facility] | [address] | [place] [address] | | | SERVICES, CORE | PARK [...] - [facility] | [address] | [place], [place] | | | [facility] | [address] | [address] | | | TESTS | | | [...] + + + | [facility] | [address] | [place], [place] | | | [facility] | [address] | [address] | | | TESTS | | | [...] | | + +---------+ + + | [facility] DEPARTMENT OF | | | | | [...] [facility] | [address] | [place], [place] | | | [facility] | [address] | [address] | | | TESTS | | | [...] [facility] | [address] | [place], [place] | | | [facility] | [address] | [address] | | | TESTS | | | [...] | + + + + + | [facility] | [address] | [place] [address] | | | SERVICES, CORE | [address] | | | + + + + + MAGNESIUM, PLASMA (05/10/2014 3:39 AM PST) + +---------+ + + + | Component | Value | Ref Range | Performed | Pathologist | | | | | At | Signature | + +---------+ + + + | MAGNESIUM,P | 1.4 (L) | 1.8 - 2.5 mg/dL | [facility] | | | JFMA | | | [...] | + + + + + | [facility] | [address] [facility] | [place] [address] | | | SERVICES, CORE | PARK [...] the MDRD equation recommended by the | [facility] | | National Kidney Disease Education Program. [...] | + + + + + | [facility] | [address] | [place] [address] | | | ARON, JANELL | BERTRAM [...] | + + + + + | [facility] | [address] | [place] [address] | | | JANELL SHARP | BERTRAM [...] [facility] | [address] | [place], [place] | | | [facility] | [facility] | [address] | | | TESTS | | | [...] SANDERS | [address] | [place], [place] | | | [facility] | [address] | [address] | | | TESTS | | | [...] [facility] | [address] | [place], [place] | | | [facility] | [address] | [address] | | | TESTS | | | [...] | + + + + + | [facility] | [address] | [place] [address] | | | SERVICES, CORE | BERTRAM [...] [facility] | [address] | [place] [address] | | | SERVICES, CORE | PARK [...] | + + + + + | [facility] | [address] | [place] [address] | | | SERVICES, CORE | PARK [...] | + + + + + | [facility] | [address] | [place] [address] | | | SERVICES, CORE | BERTRAM [...] (H) | 60 - 99 mg/dL | [facility] - | | | GLUCOSE, | | [...] + + + | [facility] | [address] | [place], [place] | | | [facility] | [address] | [address] | | | TESTS | | | [...] [facility] | [address] | [place], [place] | | | [facility] | [address] | [address] | | | TESTS | | | [...] | + + + + + | [facility] | [address] | [place] [address] | | | SERVICES, JANELL | [address] [...] [facility] | [address] | [place] [address] | | | SERVICES, CORE | PARK [...] | + + + + + | [facility] | [address] | [place] [address] | | | SERVICES, CORE | PARK [...] | + + + + + | [facility] | [address] | [place] [address] | | | SERVICES, CORE | BERTRAM [...] SANDERS | [address] | [place], [place] | | | [facility] | [facility] | [address] | | | TESTS | | | [...] - [facility] | [address] | [place], [place] | | | [facility] | [facility] | [address] | | | TESTS | | | [...] [facility] | [address] | [place] [address] | | | JANELL SHARP | PARK [...] [facility] | [address] | [place] [address] | | | SERVICES, CORE | BERTRAM [...] | + + + + + | [facility] | [address] | [place] [address] | | | SERVICES, CORE | BERTRAM [...] | + + + + + | [facility] | [address] | [place] [address] | | | SERVICES, JANELL | PARK [...] [facility] | [address] | [place], [place] | | | [facility] | [address] | [address] | | | TESTS | | | [...] | + + + + + | [facility] | [address] | [place] [address] | | | SERVICES, CORE | BERTRAM [...] (H) | 60 - 99 mg/dL | [facility] - | | | GLUCOSE, | | [...] SANDERS | [address] | [place], [place] | | | [facility] | [address] | [address] | | | TESTS | | | [...] [facility] | [address] | [place], [place] | | | [facility] | [address] | [address] | | | TESTS | | | [...] | + + + + + | [facility] | [address] | [place] [address] | | | SERVICES, CORE | BERTRAM [...] [facility] | [address] | [place] [address] | | | SERVICES, CORE | PARK [...] | + + + + + | [facility] | [address] | [place] [address] | | | SERVICES, CORE | PARK [...] [facility] | [address] | [place] [address] | | | SERVICES, CORE | BERTRAM [...] | [facility] | [address] [facility] | [place] [address] | | | SERVICES, CORE | PARK [...] [facility] | [address] | [place] [address] | | | ARON, CORE | [address] [...] [facility] | [address] | [place] [address] | | | SERVICES, CORE | [address]AM [...] | + + + + + | [facility] | [address] | [place] [address] | | | SERVICES, CORE | PARK [...] | + + + + + | [facility] | [address] | [place] [address] | | | SERVICES, CORE | [address] | | | + + + + + WELCOME TO [employer] (VIDEO) (05/04/2014 2:18 PM PST) + +--------+ [...] + + + + | [facility] | [address] | [place] [address] | | | [facility] | [address] | | | + + [...] [facility] | [address] | [place] [address] | | | SERVICES, CORE | PARK [...] [facility] | [address] | [place] [address] | | | SERVICES, [facility] | [address] | | | + [...] [facility] | [address] | [place] [address] | | | SERVICES, CORE | PARK [...] [facility] | [address] | [place] [address] | | | SERVICES, CORE | PARK [...] | + + + + + | [facility] | [address] | [place] [address] | | | SERVICES, CORE | [address]AM [...] | + + + + + | [facility] | [address] | [place] [address] | | | SERVICES, CORE | BERTRAM [...] [facility] | [address] | [place] [address] | | | SERVICES, CORE | PARK [...] + + + + + | [facility] | [address] | [place] [address] | | | SERVICES, CORE | PARK [...] [facility] | [address] | [place] [address] | | | SERVICES, CORE | PARK [...] | + + + + + | [facility] | [address] | [place] [address] | | | SERVICES, CORE | PARK [...] [facility] | [address] | [place], [place] | | | [facility] | [address] | [address] | | | TESTS | | | [...] | + + + + + | [facility] | [address] [facility] | [place] [address] | | | SERVICES, CORE | PARK [...] | + + + + + | [facility] | [address] | [place] [address] | | | SERVICES, CORE | PARK [...] | + + + + + | [facility] | [address] | [place] [address] | | | SERVICES, CORE | [address] [...] | + + + + + | [facility] | [address] | [place] [address] | | | SERVICES, CORE | BERTRAM [...] [facility] | [address] | [place] [address] | | | ARON, JANELL | PARK [...] the MDRD equation recommended by the | [facility] | | National Kidney Disease Education Program. [...] | [facility] | [address] [facility] | [place] [address] | | | SERVICES, CORE | PARK [...] | + + + + + | [facility] | [address] | [place] [address] | | | SERVICES, [facility] | [address] | | | + [...] [facility] | [address] | [place], [place] | | | THERAPY | [address] | [address] | | + + + + + [...] [facility] | [address] | [place], [place] | | | THERAPY | [address] | [address] | | + + + + + [...] [facility] | [address] | [place] [address] | | | SERVICES, CORE | PARK [...] | + + + + + | [facility] | [address] | [place] [address] | | | ARON, JANELL | [address] [...] [facility] | [address] | [place] [address] | | | SERVICES, CORE | [address] [...] | + + + + + | [facility] | [address] | [place] [address] | | | SERVICES, CORE | PARK [...] | + + + + + | [facility] | [address] | [place] [address] | | | SERVICES, CORE | PARK [...] DEPT OF | [address] | [place], [place] | | | CARDIOLOGY | [address] | [address] | | + + + + + X-RAY PORTABLE CHEST 1 VIEW (05/02/2014 2:11 AM PST) + + + + + + | Component | Value | Ref Range | Performed | Pathologist | | | | | At | Signature | + + + + + + | X-RAY | EXAM: DC CHEST 1 VIEW | | | [...] | + + + + + | [facility] | [address] | [place] [address] | | | SERVICES, CORE | PARK [...] [facility] | [address] | [place], [place] | | | [facility] | [facility] | [address] | | | TESTS | | | [...] - [facility] | [address] | [place], [place] | | | [facility] | [facility] | [address] | | | TESTS | | | [...] | + + + + + | [facility] | [address] | [place] [address] | | | SERVICES, CORE | [address] | | | + + + + + X-RAY PORTABLE CHEST 1 VIEW (05/01/2014 3:37 AM PST) + + + + + + | Component | Value | Ref Range | Performed | Pathologist | | | | | At | Signature | + + + + + + | X-RAY | EXAM: DC CHEST 1 VIEW | | | [...] Bilateral | | | | | | [id number]-cpnralej | | | | | | pleural [...] [facility] | [address] | [place] [address] | | | SERVICES, JANELL | [address] [...] | + + + + + | [facility] | [address] | [place] [address] | | | SERVICES, CORE | [address]ERTR[address] [...] the MDRD equation recommended by the | [facility] | | National Kidney Disease Education Program. [...] [facility] | [address] | [place] [address] | | | SERVICES, CORE | PARK [...] | + + + + + | [facility] | [address] | [place] [address] | | | JANELL SHARP | BERTRAM [...] [facility] | [address] | [place], [place] | | | [facility] | [facility] | [address] | | | TESTS | | | [...] | | + +---------+ + + | [facility] DEPARTMENT OF | | | | | [...] | + + + + + | [facility] | [address] | [place] [address] | | | SERVICES, CORE | PARK [...] | + + + + + | [facility] | [address] [facility] | [place] [address] | | | JANELL SHARP | [address] [...] | + + + + + | [facility] | [address] | [place] [address] | | | JANELL SHARP | [address] [...] | + + + + + | [facility] | [address] | [place] [address] | | | SERVICES, CORE | PARK [...] the MDRD equation recommended by the | [facility] | | National Kidney Disease Education Program. [...] | + + + + + | [facility] | [address] | [place] [address] | | | ARON, JANELL | [address] [...] [facility] | [address] | [place], [place] | | | [place] [facility] | [address] | [address] | | | TESTS | | | [...] [facility] | [address] | [place] [id number] | | | SERVICES, CORE | BERTRAM [...] [facility] | [address] | [place] [address] | | | SERVICES, CORE | PARK [...] | + + + + + | [facility] | [address] | [place] [address] | | | ARON, JANELL | [address] [...] | + + + + + | [facility] | [address] [facility] | [place] [address] | | | SERVICES, JANELL | [address] [...] | + + + + + | [facility] | [address] | [place] [address] | | | SERVICES, CORE | BERTRAM [...] (H) | 60 - 99 mg/dL | [facility] - | | | GLUCOSE, | | [...] [facility] | [address] | [place], [place] | | | [facility] | [address] | [address] | | | TESTS | | | [...] [facility] | [address] | [place] [address] | | | SERVICES, CORE | PARK [...] [facility] | [address] | [place] [address] | | | SERVICES, CORE | PARK [...] [facility] | [address] | [place] [address] | | | SERVICES, CORE | PARK [...] [facility] | [address] | [place] [address] | | | SERVICES, CORE | PARK [...] | + + + + + | [facility] | [address] [facility] | [place] [address] | | | SERVICES, JANELL | [address] [...] | + + + + + | [facility] | [address] | [place] [address] | | | ARON, JANELL | [address] [...] | + + + + + | [facility] | [address] [facility] | [place] [address] | | | SERVICES, CORE [...] | | + +---------+ + + | [facility] DEPARTMENT OF | | | | | [...] | + + + + + | [facility] | [address] | [place] [address] | | | ARON, JANELL | BERTRAM [...] [facility] | [address] | [place], [place] | | | [facility] | [address] | [address] | | | TESTS | | | | + + + + + X-RAY ABD LTD FEEDING TUBE EVAL PORTABLE (04/27/2014 10:33 AM PST) + + + + + + | Component | Value | Ref Range | Performed | Pathologist | | | | | At | Signature | + + + + + + | X-RAY ABD | STUDY: DC ABD LTD | | | | | [...] [facility] | [address] | [place] [address] | | | ARON, JANELL | [address] [...] | + + + + + | [facility] | [address] | [place] [address] | | | SERVICES, CORE | BERTRAM [...] | + + + + + | [facility] | [address] | [place] [address] | | | SERVICES, CORE | BERTRAM [...] [facility] | [address] | [place] [address] | | | SERVICES, CORE | PARK [...] | + + + + + | [facility] | [address] [facility] | [place] [address] | | | SERVICES, CORE | BERTRAM [...] [facility] | [address] | [place] [address] | | | SERVICES, JANELL | PARK [...] | + + + + + | [facility] | [address] | [place] [address] | | | SERVICES, CORE | BERTRAM [...] | + + + + + | [facility] | [address] | [place] [address] | | | SERVICES, CORE | PARK [...] [facility] | [address] | [place] [address] | | | SERVICES, CORE | [address] | | | + + + + + MAGNESIUM, PLASMA (04/26/2014 7:41 PM PST) + +-------+ + + + | Component | Value | Ref Range | Performed | Pathologist | | | | | At | Signature | + +-------+ + + + | MAGNESIUM,P | 2.0 | 1.8 - 2.5 mg/dL | [facility] | | | LASMA | | | [...] | + + + + + | [facility] | [address] | [place] [address] | | | SERVICES, CORE | PARK [...] | + + + + + | [facility] | [address] | [place] [address] | | | SERVICES, CORE | BERTRAM [...] PRIMARY | | | | | | WIND ENERGY TECHNICIAN: Rudy | | | | | | [...] [facility] | [address] | [place], [place] | | | [facility] | [facility] | [id number] | | | TESTS | | | | + + + + + [facility] CHRIS EXT CALEB MONTERROSO [...] | | + +---------+ + + | [facility] DEPARTMENT OF | | | | | [...] | + + + + + | [facility] | [address] | [place] [address] | | | SERVICES, CORE | BERTRAM [...] [facility] | [address] | [place] [address] | | | SERVICES, CORE | PARK [...] | + + + + + | [facility] | [address] | [place] [address] | | | SERVICES, CORE | PARK [...] | + + + + + | [facility] | [address] | [place] [address] | | | SERVICES, CORE | BERTRAM [...] | + + + + + | [facility] | [address] | [place] [address] | | | SERVICES, CORE | PARK [...] [facility] | [address] | [place] [address] | | | SERVICES, CORE | PARK [...] | + + + + + | [facility] | [address] | [place] [address] | | | JANELL SHARP | BERTRAM [...] [facility] | [address] | [place] [address] | | | SERVICES, CORE | PARK [...] | + + + + + | [facility] | [address] | [place] [address] | | | JNAELL SHARP | [address] | | | [...] [facility] | [address] | [place], [place] | | | [facility] | [address] | [address] | | | TESTS | | | [...] the MDRD equation recommended by the | [facility] | | National Kidney Disease Education Program. [...] | + + + + + | [facility] [facility] | [address] | [place] [address] | | | JANELL SHARP | BERTRAM [...] MARILYN | [address] | [place], [place] | | | [place], POINT OF CARE | [address] | [address] | | | TESTS | | | [...] | + + + + + | [facility] | [address] | [place] [address] | | | SERVICES, CORE | BERTRAM [...] | + + + + + | [facility] | [address] | [place] [address] | | | SERVICES, CORE | BERTRAM [...] + + + + | PRODUCT | [id number] | | [facility] | | | UNIT [...] + + + + | BLOOD | [id number] | | [facility] | | | PRODUCT [...] DEPARTMENT OF | [address] | [place] [address] | | | PATHOLOGY | [address] [...] + + + + | PRODUCT | [id number] | | [facility] | | | UNIT [...] + + + + | BLOOD | [id number] | | [facility] | | | PRODUCT [...] DEPARTMENT OF | [address] | [place] [address] | | | PATHOLOGY | [...] | + + + + + | [facility] | [address] | [place] [address] | | | SERVICES, JANELL | PARK [...] | + + + + + | [facility] | [address] [facility] | [place] [address] | | | SERVICES, CORE | PARK [...] the MDRD equation recommended by the | [facility] | | National Kidney Disease Education Program. [...] | + + + + + | [facility] | [address] | [place] [address] | | | JANELL SHARP | BERTRAM [...] [facility] | [address] | [place] [address] | | | SERVICES, CORE | PARK [...] [facility] | [address] | [place] [address] | | | SERVICES, CORE | PARK [...] [facility] | [address] | [place] [address] | | | SERVICES, CORE | BERTRAM [...] | + + + + + | [facility] | [address] | [place] [address] | | | SERVICESJANELL | [address] [...] MARGOPIAM | [address] | [place], [place] | | | [facility] | [facility] | [address] | | | TESTS | | | [...] [facility] | [address] | [place], [place] | | | [facility] | [address] | [address] | | | TESTS | | | [...] [facility] | [address] | [place] [address] | | | SERVICES, CORE | BERTRAM [...] | + + + + + | [employer] [facility] | [address] | [place] [address] | | | SERVICES, CORE | BERTRAM [...] [facility] | [address] | [place] [address] | | | ARON, CORE | BERTRAM [...] | + + + + + | [facility] | [address] | [place] [address] | | | SERVICES, JANELL | BERTRAM [...] | | + +---------+ + + | [facility] DEPART[facility] | | | | | RADIOLOGY [...] | + + + + + | [facility] | [address] | [place] [address] | | | JANELL SHARP | BERTRAM [...] [facility] | [address] | [place] [address] | | | SERVICES, CORE | PARK [...] | + + + + + | [employer] | [address] | [place] [address] | | | SERVICES, CORE | PARK [...] | + + + + + | [facility] | [address] | [place] [address] | | | SERVICES, CORE | BERTRAM [...] [facility] | [address] | [place], [place] | | | THERAPY | [address] | [address] | | + + + + + [...] [facility] | [address] | [place], [place] | | | THERAPY | [address] | [address] | | + + + + + [...] the MDRD equation recommended by the | [facility] | | National Kidney Disease Education Program. [...] | + + + + + | [facility] | [address] [facility] [address] | [place] [address] | | | SERVICES, CORE | PARK [...] [facility] | [address] | [place] [address] | | | SERVICES, CORE | PARK [...] | + + + + + | [facility] | [address] [facility] [address] | [place] [address] | | | SERVICES, CORE | PARK [...] [facility] | [address] | [place] [address] | | | SERVICES, CORE | BERTRAM [...] | [facility] | [address] [facility] | [place] [address] | | | SERVICES, JANELL | BERTRAM [...] [facility] | [address] | [place] [address] | | | SERVICES, CORE | PARK [...] [facility] | [address] | [place] [address] | | | SERVICES, CORE | PARK [...] | + + + + + | [facility] | [address] | [place] [address] | | | SERVICES, CORE | BERTRAM [...] | + + + + + | [facility] | [address] | [place] [address] | | | JANELL SHARP | BERTRAM [...] + + + | [facility] | [address] | [place], [place] | | | [facility] | [address] | [address] | | | TESTS | | | [...] PRIMARY | | | | | | WIND ENERGY TECHNICIAN: Rudy | | | | | | [...] 5 | | | | | | Cymraes vascular sheath | | | | | [...] | | | | for a 5 Cymraes | | | | | | IMAcatheter. [...] | | | | artery. A 3 Cymraes | | | | | | microcatheterwas [...] [facility] | [address] | [place], [place] | | | CARDIOLOGY | [address] | [address] | | + + + + + [...] + + + + | PRODUCT | [id number] | | [facility] | | | UNIT [...] + + + + | BLOOD | [id number] | | [facility] | | | PRODUCT [...] | + + + + + | [facility] | [address] | [place] [address] | | | PATHOLOGY | [address] [...] + + + + | PRODUCT | [id number] | | [facility] | | | UNIT [...] + + + + | BLOOD | [id number] | | [facility] | | | PRODUCT [...] | + + + + + | [facility] | [address] | [place] [address] | | | PATHOLOGY | [address] [...] + + + + | PRODUCT | [id number] | | [facility] | | | UNIT [...] + + + + | BLOOD | [id number] | | [facility] | | | PRODUCT [...] OF | [address] | [place] [address] | | | PATHOLOGY | [address] [...] + + + + | PRODUCT | [id number] | | [facility] | | | UNIT [...] + + + + | BLOOD | [id number] | | [facility] | | | PRODUCT [...] | + + + + + | [facility]MENT [facility] | [address] | [place] [address] | | | PATHOLOGY | [address] [...] + + + + | PRODUCT | [id number] | | [facility] | | | UNIT [...] + + + + | BLOOD | [id number] | | [facility] | | | PRODUCT [...] DEPARTMENT OF | [address] | [place] [address] | | | PATHOLOGY | [address] [...] + + + + | PRODUCT | [id number] | | [facility] | | | UNIT [...] + + + + | BLOOD | [id number] | | [facility] | | | PRODUCT [...] | + + + + + | [facility] DEPARTMENT OF | [address] | [place] [address] | | | PATHOLOGY | [address] | | | + + + + + X-RAY PORTABLE CHEST 1 VIEW (04/23/2014 11:41 AM PST) + + + + + + | Component | Value | Ref Range | Performed | Pathologist | | | | | At | Signature | + + + + + + | X-RAY | EXAM: DC CHEST 1 VIEW | | | [...] | | + +---------+ + + | [facility] DEPARTMENT OF | | | | | [...] + + + + | PRODUCT | [id number] | | [facility] | | | UNIT [...] + + + + | BLOOD | [id number] | | [facility] | | | PRODUCT [...] DEPARTMENT OF | [address] | [place] [address] | | | PATHOLOGY | [address] [...] + + + + | PRODUCT | [id number] | | [facility] | | | UNIT [...] + + + + | BLOOD | [id number] | | [facility] | | | PRODUCT [...] DEPARTMENT OF | [address] | [place] [address] | | | PATHOLOGY | [address] [...] + + + + | PRODUCT | [id number] | | [facility] | | | UNIT [...] + + + + | BLOOD | [id number] | | [facility] | | | PRODUCT [...] DEPARTMENT OF | [address] | [place] [address] | | | PATHOLOGY | [address] [...] + + + + | PRODUCT | [id number] | | [facility] | | | UNIT [...] + + + + | BLOOD | [id number] | | [facility] | | | PRODUCT [...] | + + + + + | [facility] DE[facility]MENT [facility] | [address] | [place] [address] | | | PATHOLOGY | [address] [...] + + + + | PRODUCT | [id number] | | [facility] | | | UNIT [...] + + + + | BLOOD | [id number] | | [facility] | | | PRODUCT [...] | + + + + + | [facility] DE[facility]MENT OF | [address] | [place] [address] | | | PATHOLOGY | [address] [...] + + + + | PRODUCT | [id number] | | [facility] | | | UNIT [...] + + + + | BLOOD | [id number] | | [facility] | | | PRODUCT [...] [facility] | [address] | [place] [address] | | | PATHOLOGY | [address] [...] + + + + | PRODUCT | [id number] | | [facility] | | | UNIT [...] + + + + | BLOOD | [id number] | | [facility] | | | PRODUCT [...] DEPARTMENT OF | [address] | [place] [address] | | | PATHOLOGY | [address] [...] + + + + | PRODUCT | [id number] | | [facility] | | | UNIT [...] + + + + | BLOOD | [id number] | | [facility] | | | PRODUCT [...] [facility] | [address] | [place] [address] | | | PATHOLOGY | [address] [...] + + + + | PRODUCT | [id number] | | [facility] | | | UNIT [...] + + + + | BLOOD | [id number] | | [facility] | | | PRODUCT [...] [facility] | [address] | [place] [address] | | | PATHOLOGY | [address] [...] + + + + | PRODUCT | [id number] | | [facility] | | | UNIT [...] + + + + | BLOOD | [id number] | | [facility] | | | PRODUCT [...] | + + + + + | [facility]MENT [facility] | [address] | [place] [address] | | | PATHOLOGY | [address] [...] + + + + | PRODUCT | [id number] | | [facility] | | | UNIT [...] + + + + | BLOOD | [id number] | | [facility] | | | PRODUCT [...] | + + + + + | [facility] | [address] | [place] [address] | | | PATHOLOGY | [address] [...] + + + + | PRODUCT | [id number] | | [facility] | | | UNIT [...] + + + + | BLOOD | [id number] | | [facility] | | | PRODUCT [...] | + + + + + | [facility] DE[facility]MENT OF | [address] | [place] [address] | | | PATHOLOGY | [address] [...] + + + + | PRODUCT | [id number] | | [facility] | | | UNIT [...] + + + + | BLOOD | [id number] | | [facility] | | | PRODUCT [...] | + + + + + | [facility] DE[facility]MENT OF | [address] | [place] [address] | | | PATHOLOGY | [address] [...] + + + + | PRODUCT | [id number] | | [facility] | | | UNIT [...] + + + + | BLOOD | [id number] | | [facility] | | | PRODUCT [...] | + + + + + | [facility]MENT [facility] | [address] | [place] [address] | | | PATHOLOGY | [address] [...] [facility] | [address] | [place] [address] | | | SERVICES, CORE | PARK [...] [facility] | [address] | [place] [address] | | | SERVICES, CORE | BERTRAM [...] | + + + + + | [facility] | [address] | [place] [address] | | | JANELL SHARP | BERTRAM [...] [facility] | [address] | [place] [address] | | | SERVICES, CORE | PARK [...] [facility] | [address] | [place] [address] | | | SERVICES, CORE | PARK [...] [facility] | [address] | [place] [address] | | | SERVICES, CORE | PARK [...] | + + + + + | [facility] | [address] | [place] [address] | | | ARON, JANELL | BERTRAM [...] 89 | 60 - 99 mg/dL | [facility] - | | | GLUCOSE, | | [...] [facility] | [address] | [place], [place] | | | [facility] | [address] | [address] | | | TESTS | | | [...] [facility] | [address] | [place] [address] | | | SERVICES, | [address] [...] LABORATORY | [address] | [place] [address] | | | SERVICES, | [address] [...] + + + + | PRODUCT | [id number] | | [facility] | | | UNIT [...] + + + + | BLOOD | [id number] | | [facility] | | | PRODUCT [...] | + + + + + | [facility] DE[facility]MENT [facility] | [address] | [place] [address] | | | PATHOLOGY | [address] [...] + + + + | PRODUCT | [id number] | | [facility] | | | UNIT [...] + + + + | BLOOD | [id number] | | [facility] | | | PRODUCT [...] [facility] | [address] | [place] [address] | | | PATHOLOGY | [address] [...] + + + + | PRODUCT | [id number] | | [facility] | | | UNIT [...] + + + + | BLOOD | [id number] | | [facility] | | | PRODUCT [...] [facility] | [address] | [place] [address] | | | PATHOLOGY | [address] [...] + + + + | PRODUCT | [id number] | | [facility] | | | UNIT [...] + + + + | BLOOD | [id number] | | [facility] | | | PRODUCT [...] DEPARTMENT OF | [address] | [place] [address] | | | PATHOLOGY | [address] [...] + + + + | PRODUCT | [id number] | | [facility] | | | UNIT [...] + + + + | BLOOD | [id number] | | [facility] | | | PRODUCT [...] [facility] | [address] | [place] [address] | | | PATHOLOGY | [address] [...] + + + + | PRODUCT | [id number] | | [facility] | | | UNIT [...] + + + + | BLOOD | [id number] | | [facility] | | | PRODUCT [...] [facility] | [address] | [place] [address] | | | PATHOLOGY | [address] [...] | | | | | modification) on [facility] 05/02/14 at | | | | | [...] | | | | ONCE, 1 dose, [facility] 04/24/14 at | | AM PST | | | | | 1015 | | | | | | + +-------+ +-------+---+---+ +---+---+ | | | +---+---+ + +-------+ +-------+---+---+ | bisacodyl (DULCOLAX) | Given | 04/25/19 | 10 mg | | | | suppository 10 mg 10 mg, rectal, | | 15 10:55 | | | | | ONCE, 1 dose, [facility] 04/25/14 at | | AM PST | [...] | | | | | modification) on [facility] 05/02/14 at | | | | | [...] | | | | | dose on [facility] 05/02/14 at 0530, | | | | [...] 15 5:00 | | | | | [facility] 04/25/14 at 0715, Until Sat | | [...] | | | (after last modification) on [facility] | | | | | | | [...]
--- OUTSIDE RECORDS SUMMARY | ~2019-02-11 | XMS | Encounter Summary ---
Demographics + + + | Address | [address] | | | [place] [address] | + + + | Home Phone [...] [place], [place] | | | | | [address] | | + + + + + | Cami Sawyer | ECON | Unknown | | + + + + + Care Team Providers + +------+ + | Care Clothing Worker Name | Role | Phone | [...] RIGHT POPLITEAL | | 2011 | | [facility] | MD [address] | ANTEROTIBIAL | | | | Admitting Desk | [address] | EMBOLECTOMY | | | | Located on the | [place], [place] | | | | | floor [address] | [address] | | | | | [address] | [phone] | | | | | [place], [place] | | | | | | [address] | | | +--------+---------+ + + + [...] [facility]. 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 At arrival to [facility] it was learned that she did NOT indeed have ischemic colitis. 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 She underwent embolectomy on 03/17, which resulted in restorationist of flow and no loss of tissue [...] was agreed that the patient needed a assistant terminal manager treatment and we settled o n remicade. [...] flagyl - which was continued throughout the [facility]. However, vanc/cefepime/flagyl was used instead for [...] Destination: Home Other Discharge Orders and Instructions hide house supervisor your lovenox syringes at [facility]. Go to the hospital on Tuesday [...] Please call your GI doctor in [facility] to arrange for your second infusion of [...] whether or not the INR is truly telecommunications sales representative of anticoagulation. In patients with [...] then between 2.5 and 3.5. Discharging Physician: RAPHEAL NORMAN MD Attending Physician: Kirit Rust MD [...] I NR on Tuesday. KIRIT RUST MD [facility] DEPARTMENT: [id number]- [facility] P[facility] Place of Service:- Inpatient Date of Service: 04/01/2012 CSN: [id number] Suggested Modifier: GC Resident Involved: Yes Suggested CPT: 21356- Dishcarge < 30 min Electronically signed by [...] questions. Debi Oconnor MD GI/Hepatology Fellow Pager: [phone] INTERVAL HISTORY: MRI abdomen shows no abscess; [...] of emboli, I called Dr. Rodriges (production grader for her PCP) to coordinate f/u of [...] noted any additions above. KIRIT RUST MD [facility] DEPARTMENT: [id number]- [facility] Place of Service:- Inpatient Date of Service: 03/31/2012 CSN: [id number] Suggested Modifier: GC Resident Involved: Yes Suggested CPT: 14651- Subsequent, Detailed/high complex, 35 min Davonte De [...] state: J Gastroenterol. 2004 Oct;39(10):948-54. PubMed PMID: [id number]. Consulted Heme for further studies on platelet [...] no insurance. Wanting to go home for [place]. Nurse repor ts that she has admitted [...] notes for assessment and pl an. Nuñez [place], Sub-Pattern Marking Supervisor Pgr: [phone] Ajay De La Rosa MD - 03/30/2012 11:39 PM [facility]3 Internal Medicine Attending Interval note [...] bridge after d/c until coumading therapeutic with animal daycare provider through medication assistance program Hypoalbuminemia (03/14/2012) Assessment: [...] noted any additions above. KIRIT MD YOCASTA [facility] DEPARTMENT: [id number]- [facility] Place of Service:- Inpatient Date of Service: 03/30/2012 CSN: [id number] Suggested Modifier: GC Resident Involved: Yes Suggested CPT: 03807- Subsequent, Detailed/high complex, 35 min Debi Yepez [...] follow closely Shaun SAEED GI Fellow Pg [phone] signed by Debi Oconnor MD at 03/30/2012 5:32 PM Jacoby Ko MD - 03/30/2012 10:25 AM PSTFormatting of this note might be different from the origi nal. [facility] DEPARTMENT OF SURGERY Daily Progress Note PROGRESS NOTE: Attending Physician: Xin Rust MD 03/31/2012 Subjective/Overnight Events: - latest CT shows resolution of abscess - no GI bleeding - no rectal/anal pain - tolerating reg diet MEDICATIONS: Reviewed in [facility] VITAL SIGNS: Refer to [facility] Intake/Output Summary (Last 24 hours) at [...] concerns. Jacoby Tovar MD Surgery, R2 Diagnoses: [id number] Crohn disease This assessment and plan was [...] state: J Gastroenterol. 2004 Jan;39(10):948-54. PubMed PMID: [id number]. Consulted Heme for further studies on platelet [...] this note might be different from the [facility]. Transfer Accept Note Patient: Mackenzie Hartley Attending: [...] Nathan Weeks MD Internal Medicine PGY1 Pager [phone] Cecilia Baker MD - 03/29/2012 6:37 PM [...] team. Debi Oconnor MD GI Fellow Pager [phone] signed by Debi Oconnor MD at 03/29/2012 [...] planning) Debi Oconnor MD Fellow, Gastroenterology pager: [phone] signed by Debi Oconnor MD at 03/29/2012 [...] for this encounter. OSBALDO GARCIA MD [facility] [address]A [address] [facility] [address] [place] [address] Andrew Shah MD - 10:41 AM PST [facility] DEPARTMENT OF SURGERY Daily Progress Note PROGRESS NOTE: Attending Physician: Osbaldo Garcia MD 03/29/2012 Subjective/Overnight Events: - bowel prep initiated - Hct stable - no hematochezia or hemetemesis - MEDICATIONS: Reviewed in [facility] VITAL SIGNS: Refer to [facility] Intake/Output Summary (Last 24 hours) at [...] GI Jacoby Tovar MD Surgery, R2 Diagnoses: [id number] Crohn disease This assessment and plan was [...] provided conscious sedation. OSBALDO GARCIA MD [facility] [address] [facility] [address] [place] [address] I spent 35 min in critical care (not including procedures) [facility] DEPARTMENT: MICU, [facility]- [id number] Place of Service: - Date of Service: 03/29/2012 CSN: [id number] Modifiers:GC Resident Involved: yes Suggested CPT: 27295 Critical Care, Initial 30-74 minutes Carlton Godwin [...] day of transfer to MICU (1 05/29/11), [facility] informed us that according to [...] 0659 03/29/12 07 - 03/30/12 0659 Shift 2857-4195 7125-6766 4210-6658 Daily Total 2239-6787 6890-2555 0067-8718 Daily Total I N T A K E P.O. 1750 2525 4275 I.V. 934 3973 669 2330 Shift Total 934 3740 3450 8124 O U T P U T Urine 1075 2950 1875 5900 Urine 1075 2950 1875 5900 Other 575 525 800 1282 Measured Stool Output 350 425 775 Stool/Urine Mix 575 575 Shift Total 1650 3300 2300 7250 NET -202 456 9312 874 Intake/Output Summary (since admission) at 03/12/12 1910 Last data filed at 03/29/12 0547 Gross for the last 17 days Intake 66869 ml Output 71472 ml Net since Admission -74083 ml Physical Exam: General Appearance: middle aged [...] Carlton Betancourt DO PGY-1 Internal Medicine Pager [phone] Debi Yepez MD - 03/11 4:31 PM [...] questions. Debi Oconnor MD GI/Hepatology Fellow Pager: [phone] INTERVAL HISTORY: Episode of melena last night then bright red blood per rectum this morning Hemodynamically stable but decrease in hct from 30 to 24 Transferred to [facility] INPATIENT MEDICATIONS acetaminophen (aka TYLENOL) tablet [...] in the past. OSBALDO GARCIA MD [facility] [address] [address] I spent 35 min in critical care (not including procedures) EPIC DEPARTMENT: [facility], [facility]- [id number] Place of Service: Date of Service: 03/28/2012 CSN: [id number] Modifiers:GC Resident Involved: yes Suggested CPT: 15228 Critical Care, Initial 30-74 minutes Carlton Godwin [...] 0659 03/28/12 07 - 03/29/12 0659 Shift 1134-5884 1536-4397 9233-5087 Daily Total 7745-6997 2364-3310 1789-7988 Daily Total I N T A K E P.O. 240 300 540 I.V. 404 404 934 934 Blood 1300 1300 Shift Total 999 091 4328 2244 934 934 O U T P [...] Gross for the last 16 days Intake 64441 ml Output 42417 ml Net since Admission -39318 ml Physical Exam: General Appearance: tearful middle [...] Carlton Betancourt DO PGY-1 Internal Medicine Pager [phone] Andrew Shah MD - 6:52 AM PST [...] Sukumar Zuniga DO Internal Medicine PGY-2 Pg [phone] Davonte De La Rosa MD - 03/27/2012 [...] noted any additions above. KIRITYann RUST MD [facility] DEPARTMENT: [id number]- [facility] Place of Service:- Inpatient Date of Service: 03/27/2012 CSN: [id number] Suggested Modifier: Resident Involved: Yes Suggested CPT: 43501- Subsequent, Detailed/high complex, 35 min Marely Mccann [...] questions. Debi Oconnor MD GI/Hepatology Fellow Pager: [phone] INTERVAL HISTORY: Imaging reviewed with radiology; too [...] Dung Victor - 2 11:30 AM PST COMMUNICABLE DISEASE SPECIALIST NOTE: Visited with Patient. 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 Cable Repairer team will follow as needed. Chaplain Dung Riley M.Div., [facility] [phone] Pager #[phone]; #[phone] Xin De La Rosa MD - 7:31 [...] J Gastroenterol. 2004 Jan;39(10):948-54. PubMed PMID: [id number]. Consulted Heme for further studies on platelet [...] soon with OPAT, F/U CT pelvis of amnada-rectal abscess; insura nce coverage her largest issue, CM looking to other options for care since patient has incom e that does not qualify for jose F/E/N Thrombosis ppx: Warfarin Glucose: not indicated Diet: regular Code: Do Not Resuscitate/Do Not Intubate This patient was seen with [facility], refer to Attending and Resident notes for assessment and pl an. ---- Joaquin Rivera, MS4 Pager # [phone] signed by Xin Rust MD at 03/27/2012 [...] documentation and have noted any additions above. IKRIT RUST MD [facility] DEPARTMENT: [id number]- [facility] P[facility] Place of Service:- Inpatient Date of Service: 03/26/2012 CSN: [id number] Suggested Modifier: GC Resident Involved: Yes Suggested CPT: 25346- Subsequent, Detailed/high complex, 35 min aphael Norman [...] kg/(m^2). 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 Raphael Norman MD Internal Medicine, PGY-2 [phone] Xin De La Rosa MD - 03/25/2012 [...] persists - not larger Resident spoke with residential interior designer who spoke with staff - they did [...] taking more PO if still low ask swimming pool salesperson to see Hypophosphatemia (03/14/2012) Assessment: rechecked and [...] noted any additions above. KIRIT MD YOCASTA [facility] DEPARTMENT: [id number]- [facility] PPV Place of Service:- Inpatient Date of Service: 03/25/2012 CSN: [id number] Suggested Modifier: Resident Involved: Yes Suggested CPT: 05278- Subsequent, Detailed/high complex, 35 min oaquin Rivera [...] J Gastroenterol. 2004 Jan;39(10):948- 54. PubMed PMID: [id number]. Consulted [facility] for further studies on platelet inhibitor and [...] an. ---- Joaquin Rivera, MS4 Pager # [phone] Ajay De La Rosa MD - 03/24/2012 [...] noted any additions above. KIRIT MD YOCASTA [facility] DEPARTMENT: [id number]- [facility] P[facility] Place of Service:- Inpatient Date of Service: 03/24/2012 CSN: [id number] Suggested Modifier: Resident Involved: Yes Suggested CPT: 60491- Subsequent, Detailed/high complex, 35 min Davonte De [...] J Gastroenterol. 2004 Jan;39(10):948- 54. PubMed PMID: [id number]. Consulted Heme for further studies on platelet [...] an. ---- Joaquin Nicole, MS4 Pager # [phone] Ajay De La Rosa MD - 03/23/2012 [...] noted any additions above. KIRIT MD YOCASTA [facility] DEPARTMENT: [id number]- [facility] Place of Service:- Inpatient Date of Service: 03/23/2012 CSN: [id number] Suggested Modifier: GC Resident Involved: Yes Suggested CPT: 95379- Subsequent, Detailed/high complex, 35 min Davonte De [...] tablet 12.5 mg, 12.5 mg, Oral, HS, aRphael Norman MD, 12.5 mg at 03/22/12 2302 [...] to be done today JERI DIAZ MD [facility] [address] [place] [address] Xin De La Rosa MD - 03/23/2012 [...] Assessment and Plan Hospital Day # 11 Patient:aMckenzie Hartley, Attending: Xin Rust MD Author:VIVIANA Steele [...] state: J Gastroenterol. 2004 Jan;39(10):948-54. PubMed PMID: [id number]. Consulted Heme for further studies on platelet [...] for assessment and pl an. ---- Joaquin Rivrea, VIVIANA Pager # [phone] Ajay De La Rosa MD - 03/22/2012 [...] noted any additions above. KIRIT MD YOCASTA [facility] DEPARTMENT: [id number]- [facility] PPV Place of Service:- Inpatient Date of Service: 03/22/2012 CSN: [id number] Suggested Modifier: Resident Involved: Yes Suggested CPT: 44208- Subsequent, Detailed/high complex, 35 min ox, Jeri [...] duplex ordered today JERI DIAZ MD [facility] [address] [place] [address] Xin De La Rosa MD - 03/22/2012 [...] PTT in mixing 1:1 Neg cardiolipin, neg hznl-V-ljbvajiziorm Legionella Agg Urine pending Cultures: BLOOD CULTURE [...] barber: J Gastroenterol. 2004 Jan;39(10):948-54. PubMed PMID: [id number]. - Consult Heme for further studies on [...] an. ---- Joaquin Rivera, MS4 Pager # [phone] Ajay De La Rosa MD - 03/21/2012 [...] BP 142/76 | Pulse 106[sinus tach per telephone interviewer[ | Temp 37.7 C (99.9 F) | [...] -- also coordination of care with pharmD. [facility] DEPARTMENT: [id number]- [facility] PPV Place of Service:- Inpatient Date of Service: 03/21/2012 CSN: [id number] Suggested Modifier: AKHIL Resident Involved: Yes Suggested CPT: 92081- Subsequent, Detailed/high complex, 35 min Jennifer Tolentino [...] Female with multiple complex medical problems; [facility] Vascular Surge ry consulted due to Right [...] new baseline Ok to discharge per [facility] Vascular Surgeons once ambulating and medical issues are stable. Will continue to follow while in patient. [facility] Vascular Surgery Clinic, [address] [address], phone number [phone] Please schedule followup appointment within 2-3 weeks of surgery for wound check. Dr. Sukumar Salgado, [facility] Vascular Surgery Attending. MERT OLIVA [facility] VASCULAR SURGERY [facility] [place] [address] hamMoses MD - 03/21/2012 6:55 AM PSTAgree [...] w ill need to establish care with cosmetic counselor so that further treatment options can be [...] assessment and plan. Moses Anthony MD Neurology Pattern Marking Supervisor Pager [phone] oaquin Rivera - 02/2012 6:55 AM PST [...] an. ---- Joaquin Rivera, MS4 Pager # [phone] Xin De La Rosa M D - 03/20/2012 11:09 PM [facility]3 Internal Medicine Attending Interval note [...] noted any additions above. KIRIT MD YOCASTA [facility] DEPARTMENT: [id number]- [facility] PPV Place of Service:- Inpatient Date of Service: 03/20/2012 CSN: [id number] Suggested Modifier: Resident Involved: Yes Suggested CPT: 51873- Subsequent, Detailed/high complex, 35 min ennifer Staples, [facility] - 03/20/2012 3:36 PM PST . [...] Female with multiple complex medical problems; [facility] Vascular Surge ry consulted due to Right [...] chair as tolerated, RLE WBAT -Please obtain [facility] Arterial duplex ultrasound/DELORIS of both legs prior to discharge as n ew baselineObtain ABIs with waveforms To establish new blood-flow baseline Ok to discharge per [facility] Vascular Surgeons once ambulating and medical issues are stable. Will continue to follow while in patient. [facility] Vascular Surgery Clinic, [address], phone number [phone] Please schedule followup appointment within 2-3 weeks of surgery for wound check. Dr. Sukumar Salgado, [facility] Vascular Surgery Attending. MERT OLIVA [facility] VASCULAR SURGERY [address] [place] [address] aphael Norman - 7:58 AM PSTI agree [...] plan. Raphael Norman MD Internal Medicine, PGY-2 [id number] rinJoaquin dowd - 2011 7:58 AM PST [...] an. ---- Joaquin Rivera, MS4 Pager # [phone] Juma Pimentel MD - 12/2011 3:35 PM [...] is Dr. Salgado. JUMA CARRINGTON MD [facility] [address] [place] [address] Chary Moore M D - 03/19/2012 9:14 [...] note from 03/14 for details. Therefore the ssfv-voaj-hcpkp plan givens s been to allow her [...] Lovenox bridge to be covered by [facility]. 9) Occlusive thrombus 10) Hypoalbuminemia 11) Hypophosphatemia 12) TIA (transient ischemic attack) - with PFO 13) PFO (patent foramen ovale) - plan is for lifelong coumadin. No additional benefit from device closure per CLOSURE I trial. Chary Doherty MD Chief Resident, Internal Medicine Pager: [phone] [facility] DEPARTMENT: Hosp- [id number] Place of Service: - Date of Service: 03/19/2012 CSN: [id number] Modifiers:GC Resident Involved: Yes Suggested CPT: 01719 Subsequent Visit Detailed/High complexity 35 min I [...] will need to establish c are with cosmetic counselor so that further treatment options can be [...] assessment and plan. Moses Anthony MD Neurology Pattern Marking Supervisor Pager [phone] tJose Antonio prado MD - 03/18/2012 1:01 [...] tablet 500 mg, 500 mg, Oral, BID, Glroia Anthony MD, 500 mg at 11/20 0848 [...] outpt GI, plans to establish care in [place], perhaps Dr. Byrd. Transitioning to PO meds, [...] Doherty MD Chief Resident, Internal Medicine Pager: [phone] [facility] DEPARTMENT: Hosp- [id number] Place of Service: - Date of Service: 03/18/2012 CSN: [id number] Modifiers: Resident Involved: Yes Suggested CPT: 87380 Subsequent Visit Exp Prob Foc/Mod Complexity 25 [...] Date 03/18/12 0700 - 03/19/12 0659 Shift 0501-3313 3147-7552 1679-4273 24 Hour Total I N T A K E P.O. 620 620 I.V. 20 20 40 Shift Total 640 20 660 O U T P U T Urine 675 100 775 Other 400 400 Shift Total 505 342 6165 Weight (kg) 74.1 74.1 74.1 74.1 General: [...] refusing). Will need to establish care with cosmetic counselor so that further treatment options can be [...] in MS4 note. Moses Anthony MD Neurology Pattern Marking Supervisor Pager [phone] signed by Moses Asher MD at 03/18/2012 [...] an. ---- Nuñez Nicole, MS4 Pager # [phone] Chary Moore MD - 03/17/2012 8:39 PM [...] refusing). Will need to establish care with cosmetic counselor so this can be discussed as outpt [...] Doherty MD Chief Resident, Internal Medicine Pager: [phone] [facility] DEPARTMENT: Hosp- [id number] Place of Service: - Date of Service: 03/17/2012 CSN: [id number] Modifiers: Resident Involved: Yes Suggested CPT: 45773 Subsequent Visit Detailed/High complexity 35 min I [...] end of case. MIRELA SALGADO MD [facility] [address] [address] [place] [address] ham, Gloria Lawson MD - [...] until she's therapeutic with her coumadin and [facility] has agreed to provide discounted INR checks [...] y Gloria Anthony MD Neurology PGY1 Pager: [phone] oaquin Rivera - 10/2011 7:19 AM PST [...] an. ---- Joaquin Rivera, MS4 Pager # [phone] Chary Moore MD - 03/16/2012 12:56 PM [...] Doherty MD Chief Resident, Internal Medicine Pager: [phone] [facility] DEPARTMENT: Hosp- [id number] Place of Service: - Date of Service: 03/16/2012 CSN: [id number] Modifiers: Resident Involved: Yes Suggested CPT: 00564 Subsequent Visit Exp Prob Foc/Mod Complexity 25 min and 54753 Subseque nt Visit Detailed/High complexity 35 min [...] DNR/DNI Gloria Anthony MD Neurology PGY-1 Pager [phone] The patient was seen and discussed with [...] Doherty MD Chief Resident, Internal Medicine Pager: [phone] [facility] DEPARTMENT: Hosp- [id number] Place of Service: - Date of Service: 03/15/2012 CSN: [id number] Modifiers:GC Resident Involved: Yes Suggested CPT: 33117 Subsequent Visit Detailed/High complexity 35 min Dariela [...] plan. Dariela Santoyo MD Internal Medicine PGY-3 [id number] Daryl Singleton MD - 08/2011 7:18 PM PSTHematology Attending Consult Note: I saw and examined Ms. Hartley with the Hematology Fellow, Dr. Anthony Camejo and [facility] [place] the 5A Medicine unit. I participated in the gunter components of [facility] p[facility] visit including review of the history, [...] re Daryl Arteaga MD, PhD Hematology Oncology [facility] DEPARTMENT: [id number]- HEM FACULTY [facility] Place of Service: - Inpatient Date of Service: 03/15/2012 Modifiers: GC - Resident Involved Suggested CPT: 96429 - Subsequent, Detailed/High complex 35 min Anthony [...] clinic f/u closely; our clinic at [facility] cannot provide any suppli es -anticoagulation with [...] as above. MD Hematology/Oncology Fellow Pager # [phone] signed by Daryl Arteaga MD at 03/15/2012 [...] with any questions. Bigg Margaret, R1 Pager: [phone] INTERVAL HISTORY: - NAEO - VSS, AF [...] to pro ceed. Mirela Samano M.D. [facility] Vascular Surgery [address] [facility], [address] [address] Email: [email or web address], Sandoval Barrett MD - 03/15/2012 [...] off to day. Jacoby Tovar MD Surgery [id number] signed by Sandoval Tovar MD at 03/15/2012 [...] monitor Gloria Anthony MD Neurology PGY1 Pager [phone] Daryl Singleton MD - 07/2011 4:57 PM PSTHematology Attending Consult Note: I saw and examined Ms. Hartley with the Hematology Fellow, Dr. Anthony Camejo in the [address] [place] [address] unit. I participated in the gunter components [...] re Daryl Arteaga MD, PhD Hematology Oncology [facility] DEPARTMENT: [id number]- HEM FACULTY [facility] Place of Service: - Inpatient Date of Service: 03/14/2012 Modifiers: GC - Resident Involved Suggested CPT: 42711 - Subsequent, Detailed/High complex 35 min Anthony Mzaa MD - 03/14/2012 4:57 PM PST Oncology [...] as above. MD Hematology/Oncology Fellow Pager # [phone] signed by Daryl Arteaga MD at 03/14/2012 [...] really for treatment Recommendations communicated with [facility]3 program management intern. We will continue to follow. This plan was discussed and formulated with gastroenterology at [facility], Dr. Casiano. Please call with any questions. Bigg Robles, R1 Pager: [phone] Attending Attestation: I personally interviewed the patient, [...] She may follow-up wit h her local cosmetic counselor or may follow up with me at [facility] if she wishes to consider di fferent evaluation or treatment. Gopal Casiano MD Hone Operatorjoinery factory worker Department of Gastroenterology INTERVAL HISTORY: - NAEO [...] Reviewed outside imaging with radiologist at [facility] and CT abd and pelvis shows 2 [...] Becca Moncada MD General Surgery, R2 Pager: [phone] [facility] Staff I saw and evaluated the patient. I agree with the findings and the plan of care as jannie hair in the resident s note. Left foot warm and well perfused. Patient pain-free. Will repe at [facility] to see if there has been any thrombus progression. No urgent need for surgery on left leg at this point. Mirela Samano M.D. [facility] Vascular Surgery [address] [place] [address], [address] [address] Email: [email or web address], Irene Vega MD - 03/14/2012 [...] at OSH. 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 She also had leukocytosis to 45 with a left shift, anemia, and thrombocytosis (platelets to 759). Her abdominal exam was not acute and she remained hemodynamically stable. Transferre d to [facility] for possible thrombectomy, initiated heparin therapy, and [...] were obscured by overlying bowel gas. The [id number] left external iliac arteries appear patent with [...] transient arterial occlusion. Reported CT findings at [facility] are also concerning for diffuse intra-abdominal [...] A SALCIDO MD R2, General Surgery [facility] 03/13/2012 1:20 PM Current Facility-Administered [...] Recorded LastCBG Intervention: Notified (Comment);Medication given (03/12/12 2688) CBC with diff last 72 hours (or [...] Becca Moncada MD General Surgery, R2 Pager: [phone] Vascular Staff I saw and evaluated the [...] a later time. Mirela Samano M.D. [facility] Vascular Surgery [address] [facility], OP[address] [place] [address] Email: [email or web address] Richie Goodman MD - 06/2011 11:15 AM PSTI was present and rounded with the CLOSING AGENT today. I interviewed and examined the patient. I reviewed the history, as documented today. I agree with the CLOSING AGENT's assessmen t and plan. Pt is stable [...] visceral and aortic thrombus transfer red from [place] last night with concerns for ischemic bowel. [...] celiac arteries who was transferred to [facility] for management o f vascular disease and [...] Her abdominal exam does not reveal peritonitis. [facility] ular surgery recommended a heparin drip given her subtherapeutic INR. Hematology will be con sulted for her leukocytosis and declining platelet count in the setting of heparin therapy. Gastroenterology is making recommendations regarding acute management of her Crohn's disease . She will no longer require ICU care and she will transfer to the general medicine service. Jf Wiseman MD FACS transfer car operator Division of Trauma, Critical Care, and Acute Care Surgery [phone] documented in this e ncounter Plan of [...] | + + + + + | [facility] | [address] | [place] [address] | | | JANELL SHARP | BERTRAM [...] [facility] | [address] | [place] [address] | | | SERVICES, CORE | BERTRAM [...] + + + + + | [facility] | [address] | [place] [address] | | | JANELL SHARP | BERTRAM [...] LABORATORY | [address] | [place] [address] | | | SERVICES, CORE | PARK [...] | + + + + + | [facility] | [address] | [place] [address] | | | SERVICES, CORE | PARK [...] [facility] | [address] | [place] [address] | | | SERVICES, JANELL | BERTRAM [...] [facility] | [address] | [place] [address] | | | JANELL SHARP | BERTRAM [...] [facility] | [address] | [place] [address] | | | SERVICES, JANELL | BERTRAM [...] [facility] | [address] | [place] [address] | | | SERVICES, CORE | PARK [...] [facility] | [address] | [place] [address] | | | SERVICES, CORE | BERTRAM [...] [facility] | [address] | [place] [address] | | | SERVICES, CORE | PARK [...] | + + + + + | [facility] | [address] | [place] [address] | | | SERVICES, CORE | BERTRAM [...] | + + + + + | [facility] | [address] | [place] [address] | | | SERVICES, CORE | PARK [...] + | [facility] | [address] | [place] [address] | | | [place] | | | [...] + | [facility] | [address] | [place] [address] | | | [place] | | | [...] + | [facility] | [address] | [place] [address] | | | [place] | | | | + + + [...] + + + + + | [facility] | [address] | [place] [address] | | | SERVICES, CORE | BERTRAM [...] | + + + + + | [facility] | [address] | [place] [address] | | | SERVICES, CORE | BERTRAM [...] + + + + + | [facility] | [address] | [place] [address] | | | SERVICES, CORE | BERTRAM [...] + + + + + | [facility] | [address] | [place] [address] | | | ARON, JANELL | BERTRAM [...] + + + + + | [facility] | [address] | [place] [address] | | | PATHOLOGY | [address] [...] [facility] | [address] | [place] [address] | | | SERVICES, CORE | PARK [...] | + + + + + | [facility] | [address] | [place] [address] | | | ARON, [place]COGEE | [address] | | | + [...] [facility] | [address] | [place], [place] | | | [facility] | [address] | [address] | | | TESTS | | | [...] | + + + + + | [facility] | [address] | [place] [address] | | | SERVICES, CORE | BERTRAM [...] | + + + + + | [facility] | [address] | [place] [address] | | | ARON, CORE | BERTRAM [...] | + + + + + | [facility] | [address] | [place] [address] | | | SERVICES, CORE | BERTRAM [...] | 60 - 99 mg/dL | [facility] - | | | GLUCOSE, | | [...] [facility] | [address] | [place], [place] | | | [facility] | [address] | [address] | | | TESTS | | | [...] | + + + + + | [facility] | [address] | [place] [address] | | | SERVICES, CORE | BERTRAM [...] | + + + + + | [facility] | [address] | [place] [address] | | | SERVICES, CORE | BERTRAM [...] [facility] | [address] | [place] [address] | | | SERVICES, CORE | PARK [...] | + + + + + | [facility] | [address] | [place] [address] | | | SERVICES, CORE | [address] | | | + + + + + X-RAY PORTABLE CHEST 1 VIEW (03/28/2012 6:28 AM PST) + + + + + + | Component | Value | Ref Range | Performed | Pathologist | | | | | At | Signature | + + + + + + | X-RAY | STUDY: [place] CHEST 1 VIEW | | | | [...] + + + + | PRODUCT | [id number] | | [facility] | | | UNIT [...] + + + + | BLOOD | [id number] | | [facility] | | | PRODUCT [...] [facility] | [address] | [place] [address] | | | PATHOLOGY | [address] [...] + + + + | PRODUCT | [id number] | | [facility] | | | UNIT [...] + + + + | BLOOD | 38905 | | [facility] | | | PRODUCT [...] + + + + | [facility] | [address] | [place] [address] | | | PATHOLOGY | [address] [...] [facility] | [address] | [place], [place] | | | [facility] | [address] | [address] | | | TESTS | | | [...] | + + + + + | [facility] | [address] | [place] [address] | | | JANELL SHARP | BERTRAM [...] view image for the detailed interpretation from [employer] results. | CARDIOLOGY | + + + + + + + + | Performing | Address | City/State/Zipcode | Phone Number | | Organization | | | | + + + + + | [facility] | [address] | [place], [place] | | | CARDIOLOGY | [address] | [address] | | + + + + + [...] [facility] | [address] | [place] [address] | | | SERVICES, CORE | BERTRAM [...] + + + + | PRODUCT | [id number] | | [facility] | | | UNIT [...] + + + + | BLOOD | 75870 | | [facility] | | | PRODUCT [...] + + + + | [facility] | [address] | [place] [address] | | | PATHOLOGY | [address] [...] + + + + | PRODUCT | [id number] | | [facility] | | | UNIT [...] + + + + | BLOOD | 64326 | | [facility] | | | PRODUCT [...] + + + + + | [facility] DEPARTMENT | [address] | [place] [address] | | | PATHOLOGY | [address] [...] [facility] | [address] | [place] [address] | | | SERVICES, CORE | PARK [...] [facility] | [address] | [place] [address] | | | JANELL SHARP | BERTRAM [...] + + + + + | [facility] | [address] | [place] [address] | | | JANELL SHARP | BERTRAM [...] [facility] | [address] | [place] [address] | | | SERVICES, CORE | PARK [...] [facility] | [address] | [place] [address] | | | SERVICES, | [address] [...] [facility] | [address] | [place] [address] | | | SERVICES, | [address] [...] + + + + | PRODUCT | [id number] | | [facility] | | | UNIT [...] + + + + | BLOOD | 56379 | | [facility] | | | PRODUCT [...] + + + + | [facility] | [address] | [place] [address] | | | PATHOLOGY | [address] [...] + + + + | PRODUCT | [id number] | | [facility] | | | UNIT [...] + + + + | BLOOD | 57325 | | [facility] | | | PRODUCT [...] DEPARTMENT OF | [address] | [place] [address] | | | PATHOLOGY | [address] [...] [facility] | [address] | [place] [address] | | | SERVICES, CORE | PARK [...] + + + + + | [facility] | [address] | [place] [address] | | | SERVICES, CORE | P[address] [...] | + + + + + | [place] | [address] | [place] [address] | | | SERVICES, CORE | PARK [...] | + + + + + | [facility] | [address] | [place] [address] | | | SERVICES, CORE | P[address] [...] [facility] | [address] | [place] [address] | | | JANELL SHARP | BERTRAM [...] [facility] | [address] | [place] [address] | | | SERVICES, CORE | PARK [...] [facility] | [address] | [place] [address] | | | SERVICES, CORE | PARK [...] [facility] | [address] | [place] [address] | | | SERVICES, CORE | PARK [...] 82 | 60 - 99 mg/dL | [facility] | | | PLASMA | | | [...] [facility] | [address] | [place] [address] | | | JANELL SHARP | BERTRAM [...] [facility] | [address] | [place] [address] | | | SERVICES, CORE | P[address] [...] [facility] | [address] | [place] [id number] | | | SERVICES, CORE | BERTRAM [...] [facility] | [address] | [place] [address] | | | SERVICES, CORE | PARK [...] [facility] | [address] | [place] [address] | | | SERVICES, CORE | PARK [...] [facility] | [address] | [place] [address] | | | SERVICES, CORE | PARK [...] | + + + + + | [facility] | [address] | [place] [address] | | | JANELL SHARP | BERTRAM [...] oral, | | | | | | [id number] hrs | | | | | | [...] | + +---------+ + + | [facility] DEPARTMENT OF | | | | | [...] [facility] | [address] | [place] [address] | | | SERVICES, CORE | PARK [...] + + + + + | [facility] | [address] | [place] [address] | | | SERVICES, CORE | PARK [...] | + + + + + | [facility] | [address] | [place] [address] | | | SERVICES, CORE | BERTRAM [...] | + + + + + | [facility] | [address] | [place] [address] | | | SERVICES, CORE | BERTRAM [...] [facility] | [address] | [place] [address] | | | SERVICES, CORE | PARK [...] | | | | Final | | [place] | | | | CULTURE RESULT:< 10,000 [...] + | [facility] | [address] | [place] [address] | | | [facility] | | | | + + + [...] [facility] | [address] | [place] [address] | | | SERVICES, CORE | PARK [...] [facility] | [address] | [place] [address] | | | SERVICES, JANELL [...] + + | [facility] | [address] | [place] [address] | | | JANELL SHARP | BERTRAM [...] + + + + + | [facility] | [address] | [place] [address] | | | SERVICES, CORE | [address] | | | + + + + + 12 LEAD ECG (03/23/2012 4:00 PM PST) + + + + + + | Component | Value | Ref Range | Performed | Pathologist | | | | | At | Signature | + + + + + + | VENTRICULAR | 103 | BPM | [facility] DEPT | | | RATE | | [...] view image for the detailed interpretation from [employer] results. | CARDIOLOGY | + + + + + + + + | Performing | Address | City/State/Zipcode | Phone Number | | Organization | | | | + + + + + | [facility] | [address] | [place], [place] | | | CARDIOLOGY | [address] | [address] | | + + + + + [...] [facility] | [address] | [place] [address] | | | SERVICES, CORE | PARK [...] [facility] | [address] | [place] [address] | | | SERVICES, CORE | BERTRAM [...] | + + + + + | [facility] | [address] | [place] [address] | | | SERVICES, CORE | PARK [...] + + + + + | [facility] | [address] | [place] [address] | | | SERVICES, JANELL | BERTRAM [...] [facility] | | | | | | [facility] | | | | | | [place] [address] | | | | | | [phone]. | | | | | | Kaitlin [...] [facility] | [address] | [place], [place] | | | [facility] | | [address] | | + + + + + [...] | + + + + + | [facility] | [address] | [place] [address] | | | SERVICES, JANELL | BERTRAM [...] + CULTURE, BLOOD BACTI & YEAST [facility] (03/22/2012 7:09 PM PST) + + + [...] | + + + + + | [facility] | [address] | [place] [address] | | | SERVICES, CORE | BERTRAM [...] + + + + + | [facility] | [address] | [place] [address] | | | SERVICES, CORE | [address] | | | + + + + + 12 LEAD ECG (03/22/2012 2:58 PM PST) + + + + + + | Component | Value | Ref Range | Performed | Pathologist | | | | | At | Signature | + + + + + + | VENTRICULAR | 87 | BPM | [facility] | | | RATE | | [...] | | | | | XIN GARZON ([id number]) | | | | | | on 03/22/2012 4:25:06 PM | | | | + + + + + + + + | Specimen | + + | | + + + + + | Narrative | Performed At | + + + | Please click | [facility] | | on view image for the detailed interpretation from [employer] results. | CARDIOLOGY | + + + + + + + + | Performing | Address | City/State/Zipcode | Phone Number | | Organization | | | | + + + + + | [facility] | [address] | [place], [place] | | | CARDIOLOGY | [address] | [address] | | + + + + + [...] [facility] | [address] | [place], [place] | | | [facility] | [facility] | [address] | | | TESTS | | | [...] [facility] | [address] | [place], [place] | | | [facility] | [facility] | [address] | | | TESTS | | | [...] + + + + + | [facility] | [address] | [place] [address] | | | SERVICES, CORE | P[address] [...] [facility] | [address] | [place] [address] | | | SERVICES, CORE | PARK [...] + + | [facility] | [address] | [place] [address] | | | SERVICES, CORE | P[address] [...] [facility] | [address] | [place] [address] | | | SERVICES, CORE | BERTRAM [...] + + + + + | [facility] | [address] | [place] [address] | | | SERVICES, CORE | BERTR[address] [...] | 60 - 99 mg/dL | [facility] - | | | GLUCOSE, | | [...] [facility] | [address] | [place], [place] | | | [facility] | [address] | [address] | | | TESTS | | | [...] | + + + + + | [facility] | [address] | [place] [address] | | | ARON, JANELL | [address] [...] | 60 - 99 mg/dL | [facility] - | | | GLUCOSE, | | [...] [facility] | [address] | [place], [place] | | | [facility] CARE | [address] | [address] | | | TESTS | | | [...] by | | | | | | MAYG RAPHAEL (158) on | | | | | | 03/21/2012 10:26:41 PM | | | | + + + + + + + + | Specimen | + + | | + + + + + | Narrative | Performed At | + + + | Please click | [facility] | | on view image for the detailed interpretation from [employer] results. | CARDIOLOGY | + + + + + + + + | Performing | Address | City/State/Zipcode | Phone Number | | Organization | | | | + + + + + | [facility] | [address] | [place], [place] | | | CARDIOLOGY | [address] | [address] | | + + + + + [...] [facility] | [address] | [place], [place] | | | [facility] | [address] | [address] | | | TESTS | | | | + + + + + VASC LAB ANKLE BRACH INDICS W WAVEFORM BILAT (03/21/2012 8:17 AM PST) + + + + + + | Component | Value | Ref Range | Performed | Pathologist | | | | | At | Signature | + + + + + + | [facility] | ANKLE BRACHIAL INDEX | | [...] + + + + + | [facility] | [address] | [place] [address] | | | SERVICES, CORE | PARK [...] | + + + + + | [facility] | [address] | [place] [address] | | | SERVICES, CORE | BERTRAM [...] | + + + + + | [facility] | [address] | [place] [address] | | | SERVICES, CORE | PARK [...] + + + + + | [facility] | [address] | [place] [address] | | | SERVICES, CORE | BERTRAM [...] [facility] | [address] | [place] [id number] | | | JANELL SHARP | BERTRAM [...] GARCIA | | | | | | ([id number]) on 03/22/2012 | | | | | | 12:47:28 PM | | | | + + + + + + + + | Specimen | + + | | + + + + + | Narrative | Performed At | + + + | Please click | [facility] | | on view image for the detailed interpretation from [employer] results. | CARDIOLOGY | + + + + + + + + | Performing | Address | City/State/Zipcode | Phone Number | | Organization | | | | + + + + + | [facility] | [address] | [place], [place] | | | CARDIOLOGY | [address] | [address] | | + + + + + [...] | + + + + + | [facility] | [address] | [place] [address] | | | SERVICES, CORE | BERTRAM [...] LABORATORY | [address] | [place] [address] | | | JANELL SHARP | BERTRAM [...] 98 | 60 - 99 mg/dL | [facility] - | | | GLUCOSE, | | [...] [facility] | [address] | [place], [place] | | | [facility] | [address] | [address] | | | TESTS | | | [...] view image for the detailed interpretation from [employer] results. | CARDIOLOGY | + + + + + + + + | Performing | Address | City/State/Zipcode | Phone Number | | Organization | | | | + + + + + | [facility] | [address] | [place], [place] | | | CARDIOLOGY | [address] | [address] | | + + + + + [...] [facility] | [address] | [place], [place] | | | [facility] | [facility] | [address] | | | TESTS | | | [...] [facility] | [address] | [place], [place] | | | [facility] | [address] | [address] | | | TESTS | | | | + + + + + X-RAY PORTABLE CHEST 1 VIEW (03/20/2012 10:13 AM PST) + + + + + + | Component | Value | Ref Range | Performed | Pathologist | | | | | At | Signature | + + + + + + | X-RAY | STUDY: [place] CHEST 1 VIEW | | | | [...] [facility] | [address] | [place] [address] | | | SERVICES, JANELL | BERTRAM [...] | + + + + + | [facility] | [address] | [place] [address] | | | ARON, JANELL | [address] [...] + + + + + | [facility] | [address] | [place] [address] | | | JANELL SHARP | BERTRAM [...] + + + + + | [facility] | [address] | [place] [address] | | | SERVICES, CORE | BERTRAM [...] | 60 - 99 mg/dL | [facility] - | | | GLUCOSE, | | [...] [facility] | [address] | [place], [place] | | | [facility] | [address] | [address] | | | TESTS | | | [...] [facility] | [address] | [place], [place] | | | [facility] | [address] | [address] | | | TESTS | | | [...] + + + + + | [facility] | [address] | [place] [address] | | | SERVICES, CORE | [address] [...] + + + + + | [facility] | [address] | [place] [address] | | | JANELL SHARP | BERTRAM [...] [facility] | [address] | [place], [place] | | | [facility] | [address] | [address] | | | TESTS | | | [...] view image for the detailed interpretation from [employer] results. | CARDIOLOGY | + + + + + + + + | Performing | Address | City/State/Zipcode | Phone Number | | Organization | | | | + + + + + | [facility] | [address] | [place], [place] | | | CARDIOLOGY | [address] | [address] | | + + + + + [...] | [facility] | [address] | [place], [place] | | | [facility] | [address] | [address] | | | TESTS | | | [...] - [facility] | [address] | [place], [place] | | | [facility] | [address] | [address] | | | TESTS | | | [...] [facility] | [address] | [place] [address] | | | SERVICES, CORE | BERTRAM [...] [facility] | [address] | [place] [address] | | | SERVICES, CORE | [address]ARK [...] [facility] | [address] | [place] [address] | | | SERVICES, CORE | PARK [...] | + + + + + | [facility] | [address] | [place] [address] | | | SERVICES, JANELL | BERTRAM [...] | | | | Final | | [place] | | | | CULTURE RESULT:No growth [...] + | [facility] - | [address] | [place] [address] | | | [place] | | | | + + + [...] | + + + + + | [facility] | [address] | [place] [address] | | | SERVICES, CORE | BERTRAM [...] [facility] | [address] | [place] [address] | | | SERVICES, CORE | PARK [...] [facility] | [address] | [place] [address] | | | JANELL SHARP | BERTRAM [...] [facility] | [address] | [place] [address] | | | SERVICES, CORE | PARK [...] + | [facility] | [address] | [place] [address] | | | SERVICES, CORE | PARK [...] - [facility] | [address] | [place], [place] | | | [facility] | [address] | [address] | | | TESTS | | | [...] + + + + + | [facility] | [address] | [place] [address] | | | SERVICES, CORE | BERTRAM [...] [facility] | [address] | [place], [place] | | | [facility] | [address] | [address] | | | TESTS | | | [...] [facility] | [address] | [place] [address] | | | SERVICESJANELL | [address] [...] + + + + + | [facility] | [address] | [place] [address] | | | SERVICES, CORE | BERTRAM [...] (H) | 60 - 99 mg/dL | [facility] - | | | GLUCOSE, | | [...] [facility] | [address] | [place], [place] | | | [facility] | [address] | [address] | | | TESTS | | | | + + + + + OPERATION RECORD (03/18/2012 11:22 AM PST) + + | Transcriptions | + + | Mirela Salgado MD - 03/18/2012 8:38 AM PST Date: 03/17/2012ttending | | Surgeon: Mirela Salgado M.D.Interventional Radiologist(s): Sandoval | | Bennett Galvez M.D.Preoperative Diagnosis(es):Embolus, [...] | | tolerated the procedure well.MIRELA SALGADO, [facility] Centeressor [facility]DU[facility] / [id number] / | | [id number] / [id number] / T: 03/17/2012 | |was no pulse. [...] | | | |MIRELA SALGADO MD | |belt worker | | | |[facility] / | |[id number] / [id number] / [id number] / | | | | | + + HEPARIN, EITHER STANDARD / LMW, BLOOD (03/18/2012 10:26 AM [facility]) + +-------+ + + + | Component [...] | + + + + + | [facility] | [address] | [place] [address] | | | ARON, CORE | BERTRAM [...] [facility] | [address] | [place] [address] | | | SERVICES, JANELL | BERTRAM [...] [facility] | [address] | [place] [address] | | | SERVICES, CORE | PARK [...] [facility] | [address] | [place] [address] | | | SERVICES, CORE | PARK [...] [facility] | [address] | [place] [address] | | | SERVICES, CORE | PARK [...] LAB[facility]ORY | [address] | [place] [address] | | | SERVICES, CORE | PARK [...] + + + + + | [facility] | [address] | [place] [address] | | | SERVICES, CORE | BERTRAM [...] [facility] | [address] | [place], [place] | | | [facility] | [address] | [address] | | | TESTS | | | [...] [facility] | [address] | [place], [place] | | | [facility] | [address] | [address] | | | TESTS | | | [...] (H) | 60 - 99 mg/dL | [facility] - | | | GLUCOSE, | | [...] [facility] | [address] | [place], [place] | | | [facility] | [address] | [address] | | | TESTS | | | [...] [facility] | [address] | [place] [address] | | | SERVICES, JANELL | BERTRAM [...] | + + + + + | [facility] | [address] | [place] [address] | | | SERVICES, CORE | PARK [...] + + + + + | [facility] | [address] | [place] [address] | | | SERVICES, CORE | BERTRAM [...] [facility] | [address] | [place] [address] | | | ARON, JANELL | PARK [...] | 60 - 99 mg/dL | [facility] - | | | GLUCOSE, | | [...] - [facility] | [address] | [place], [place] | | | [facility] | [address] | [address] | | | TESTS | | | [...] [facility] | [address] | [place] [address] | | | SERVICES, | [address] [...] [facility] | [address] | [place] [address] | | | SERVICES, | [address] [...] + + + + + | [facility] | [address] | [place] [address] | | | JANELL SHARP | BERTRAM [...] | 60 - 99 mg/dL | [facility] - | | | GLUCOSE, | | [...] + + + | [facility] | [address] | [place], [place] | | | [facility] | [address] | [address] | | | TESTS | | | [...] | + +---------+ + + | [facility] DEPARTMENT OF | | | | | [...] MAR[facility] | [address] | [place], [place] | | | [facility] | [facility] | [address] | | | TESTS | | | [...] | 60 - 99 mg/dL | [facility] - | | | GLUCOSE, | | [...] [facility] | [address] | [place], [place] | | | [facility] | [address] | [address] | | | TESTS | | | [...] | + + + + + | [facility] | [address] | [place] [address] | | | SERVICES, CORE | BERTRAM [...] + + | [facility] | [address] | [place], [place] | | | [facility] | [address] | [address] | | | TESTS | | | [...] + + + + + | [facility] | [address] | [place] [address] | | | SERVICES, CORE | PARK [...] [facility] | [address] | [place] [address] | | | SERVICES, CORE | PARK [...] [facility] | [address] | [place] [address] | | | SERVICESJANELL | [address] [...] + + + + + | [facility] | [address] | [place] [address] | | | SERVICES, CORE | BERTRAM [...] [facility] | [address] | [place], [place] | | | [facility] | [address] | [address] | | | TESTS | | | [...] MARILY[facility] | [address] | [place], [place] | | | [facility] | [address] | [address] | | | TESTS | | | [...] | + +---------+ + + | [facility] DEPARTMENT OF | | | | | [...] Kirstie | | | | | | [place] [employer] | | | | + + + + + + + + | Specimen | + + | | + + + +---------+ + + | Performing | Address | City/State/Zipcode | Phone Number | | Organization | | | | + +---------+ + + | [facility] DEPARTMENT OF | | | | | [...] [facility] | [address] | [place], [place] | | | [facility] | [address] | [address] | | | TESTS | | | [...] [facility] | [address] | [place], [place] | | | [facility] | [address] | [address] | | | TESTS | | | [...] | + + + + + | [facility] | [address] | [place] [address] | | | SERVICES, SPECIAL | PARK [...] + + | [facility] | [address] | [place] [address] | | | SERVICES, SPECIAL | BERTRAM [...] [facility] | [address] | [place] [address] | | | SERVICES, SPECIAL | PARK [...] [facility] | [address] | [place] [address] | | | SERVICES, SPECIAL | PARK [...] + + | [facility] | [address] | [place] [address] | | | ARON, JANELL | BERTRAM [...] | + + + + + | [facility] | [address] | [place] [address] | | | SERVICES, CORE [...] [facility] | [address] | [place] [address] | | | SERVICES, CORE | PARK [...] | + + + + + | [facility] | [address] | [place] [address] | | | ARON, JANELL | BERTRAM [...] MARILYN | [address] | [place], [place] | | | [facility] | [address] | [address] | | | TESTS | | | [...] + + + + + | [facility] | [address] | [place] [address] | | | SERVICES, CORE | BERTRAM [...] [facility] | [address] | [place], [place] | | | [facility] | [facility] | [address] | | | TESTS | | | [...] MARILYN | [address] | [place], [place] | | | [facility] | [address] | [address] | | | TESTS | | | [...] Davina | | | | | | [place] | | | | + + + [...] [facility] | [address] | [place], [place] | | | [facility] | [address] | [address] | | | TESTS | | | [...] + + + + | PRODUCT | [id number] | | [facility] | | | UNIT [...] + + + + | BLOOD | 94272 | | [facility] | | | PRODUCT [...] + + + + | [facility] | [address] | [place] [address] | | | PATHOLOGY | [address] [...] + + + + | PRODUCT | [id number] | | [facility] | | | UNIT [...] + + + + | BLOOD | 22417 | | [facility] | | | PRODUCT [...] DEPARTMENT OF | [address] | [place] [address] | | | PATHOLOGY | [address] [...] [facility] | [address] | [place] [address] | | | SERVICES, CORE | PARK [...] - [facility] | [address] | [place], [place] | | | [facility] | [address] | [address] | | | TESTS | | | [...] [facility]ERS | [address] | [place], [place] | | | [facility] | [address] | [address] | | | TESTS | | | [...] [facility] | [address] | [place] [address] | | | SERVICES, CORE | BERTRAM [...] [facility] | [address] | [place] [address] | | | SERVICES, CORE | PARK [...] | + + + + + | [facility] | [address] | [place] [address] | | | SERVICES, CORE | BERTRAM [...] | | If supplementation does | | [facility] | | | | not correct consider [...] if | | | | | | [id number] >400: | | | | | | [...] + | [facility] | [address] | [place] [address] | | | [place] | | | [...] [facility] | [address] | [place] [address] | | | SERVICES, CORE | PARK [...] [facility] | [address] | [place] [address] | | | SERVICES, CORE | PARK [...] | + + + + + | [facility] | [address] | [place] [address] | | | SERVICES, CORE | BERTRAM [...] - | | | | | | [place] | | + + + + + + + + | Specimen | + + | Blood - Blood | + + + + + + + | Performing | Address | City/State/Zipcode | Phone Number | | Organization | | | | + + + + + | [facility] | [address] | [place] [address] | | | [place] | | | | + + + [...] [facility] | [address] | [place], [place] | | | [facility] | [address] | [address] | | | TESTS | | | [...] [facility] | [address] | [place] [address] | | | SERVICES, CORE | PARK [...] | + + + + + | [facility] | [address] | [place] [address] | | | SERVICES, CORE | BERTRAM [...] - [facility] | [address] | [place], [place] | | | [facility] | [address] | [address] | | | TESTS | | | [...] | + + + + + | [facility] | [address] | [place] [address] | | | SERVICES, CORE | BERTRAM [...] gas. | | | | | | [id number]-[id number] left | | | | | | [...] [facility] | [address] | [place], [place] | | | [facility] | [address] | [address] | | | TESTS | | | [...] % | [facility] | | | | [facility],[address] | | [facility] | | | | [place], [facility] | | [facility] | | | | [address] | | | | | | [phone].[email or web address]. | | | | | | Kaitlin [...] [facility] | [address] | [place], [place] | | | UNIV [facility] | | [address] | | + + + + + [...] | + + + + + | [facility] | [address] | [place] [address] | | | SERVICES, CORE | BERTRAM [...] | + + + + + | [facility] | [address] | [place] [address] | | | SERVICES, CORE | BERTRAM [...] [facility] | [address] | [place] | | | [facility] | [address] | [address] | | | TESTS | | | [...] + + + + + | [facility] | [address] | [place] [address] | | | ARON, CORE | PARK [...] + + + + + | [facility] | [address] | [place] [address] | | | SERVICES, CORE | BERTRAM [...] | 60 - 99 mg/dL | [facility] - | | | GLUCOSE, | | [...] + + + | [facility] | [address] | [place], [place] | | | [facility] | [address] | [address] | | | TESTS | | | [...] | + + + + + | [facility] | [address] | [place] [address] | | | SERVICES, CORE | PARK [...] | + + + + + | [facility] | [address] | [place] [address] | | | SERVICES, CORE | BERTRAM [...] | + + + + + | [facility] | [address] | [place] [address] | | | SERVICES, CORE | BERTRAM [...] + + + + + | [facility] | [address] | [place] [address] | | | SERVICES, CORE | PARK [...] [facility] | [address] | [place] [address] | | | SERVICES, CORE | PARK [...] | + + + + + | [facility] | [address] | [place] [address] | | | SERVICES, CORE | PARK [...] + | [facility] | [address] | [place] [address] | | | [place] | | | [...] | | | Final CULTURE | | [place] | | | | RESULT:Salmonella, | | [...] + | [facility] | [address] | [place] [address] | | | [place] | | | [...] + + + + + | [facility] | [address] | [place] [address] | | | SERVICES, CORE | BERTRAM [...] | 60 - 99 mg/dL | [facility] - | | | GLUCOSE, | | [...] [facility] | [address] | [place], [place] | | | [facility] | [address] | [address] | | | TESTS | | | [...] [facility] | [address] | [place], [place] | | | CARDIOLOGY | [address] | [address] | | + + + + + [...] [facility] | [address] | [place] [address] | | | SERVICES, CORE | [address] | | | + + + + + CULTURE, BLOOD BACTI & YEAST [facility] (03/12/2012 9:50 PM PST) + + + [...] | + + + + + | [facility] | [address] | [place] [address] | | | SERVICES, CORE | BERTRAM [...] [facility] | [address] | [place] [address] | | | SERVICES, CORE | PARK [...] + + + + + | [facility] | [address] | [place] [address] | | | SERVICES, CORE | PARK [...] - [facility] | [address] | [place], [place] | | | [facility] | [facility] | [address] | | | TESTS | | | [...] [facility] | [address] | [place] [address] | | | SERVICES, CORE | PARK [...] [facility] | [address] | [place] [address] | | | SERVICES, CORE | PARK [...] [facility] | [address] | [place] [address] | | | SERVICES, | [address] [...] | + + + + + | [facility] | [address] | [place] [address] | | | SERVICES, | [address] [...] | + + + + + | [facility] | [address] | [place] [address] | | | SERVICES, CORE | BERTRAM [...] [facility] | [address] | [place] [address] | | | JANELL SHARP | PARK [...] | + + + + + | [facility] | [address] | [place] [address] | | | JANELL SHARP | [address] [...]
--- OUTSIDE RECORDS SUMMARY | ~2019-02-11 | XMS | Encounter Summary ---
Demographics + + + | Address | [address] | | | [place] [address] | + + + | Home Phone | | + + + | Preferred Language | Unknown | + + + | Marital Status | | + + + | Mormonism Affiliation | NRP | + + + | Race | White | + + + | Ethnic Group | Not or | + + + Author + + + | Author | [facility] | + + + | Organization | [facility] | + + + | Address | Unknown | + + + | Phone | Unavailable | + + + Support + + + + + | Name | Relationship | Address | Phone | + + + + + | Kole Hartley | LAMONT | [address] | | | | | [place], [place] | | | | | [address] | | + + + + + | Cami Sawyer | ECON | Unknown | | + + + + + Care Team Providers + +------+ + | Care Pet Stylist Name | Role | Phone | + [...] [address] | | | | | [place], [place] | [address] | | | 05/13/ | | | [place], [place] | | | 2014 | | [phone] | [address] | | | | | | [phone] | | | | | | | | | | | | Jf Wiseman MD | | | | | | [phone] | | | | | | [address] | | | | | | [place], [place] | | | | | | [address] | | | | | | [phone] | | | | | | | [...] might be different f rom the original. [facility] DEPARTMENT OF SURGERY EMERGENCY GENERAL SURGERY [...] is discharged to nursing [facility] facility for [facility] care. Mackenzie Hartley is discharged in stable [...] 100mls three times a day. Destination: Destination: Snf Facility Thank you for the opportunity to [...] might be different f rom the original. 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 S he [...] thrombosis while anticoagulated with warfarin transferred to [facility] from [facility] for management of retroperitoneal bleed. She is [...] know if she wants to see the [facility] GI team - Stage I [...] recommending VIBRA since would be close to [facility] and she would benefit for [...] with complication 03/12/2012 Jean-Claude Albrecht D.M.D., M.D. [facility] [address] [place] [address] This assessment and plan was formulated both [...] MD - 05/11/2014 8:51 AM PST . 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 S he [...] thrombosis while anticoagulated with warfarin transferred to [facility] from [facility] for management of retroperitoneal bleed. She is [...] know if she wants to see the [facility] GI team - Stage I [...] recommending [facility] since would be close to [facility] and she would benefit for [...] with complication 03/12/2012 Jean-Claude Albrecht D.M.D., M.D. [facility] [address] [facility] [place] [address] This assessment and plan was formulated both [...] [facility] supporting her. Pt is not gnosticism but appreciates support. Intervention: Provided a listening presence and explored pt's anxieties, worries and hopes. Plan: Spiritual care remains available. 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 S he [...] thrombosis while anticoagulated with warfarin transferred to [facility] from [facility] for management of retroperitoneal bleed. She is [...] know if she wants to see the [facility] GI team - Stage I [...] recommending SONIAA since would be close to [facility] and she would benefit for [...] intestine with complication 03/12/2012 ANDREW VINCENT MD [facility] [address] [place] [address] This assessment and plan was [...] be different from the orig [facility]. 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 S he [...] thrombosis while anticoagulated with warfarin transferred to [facility] from [facility] for management of retroperitoneal bleed. She is [...] know if she wants to see the [facility] GI team - Stage I [...] recommending VIBRA since would be close to [facility] and she would benefit for [...] intestine with complication 03/12/2012 ANDREW VINCENT MD [facility] [address] [place] [address] This assessment and plan was [...] might be different from the orig inal. 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 S he [...] TROPONIN Imaging No new Cultures BLOOD CULTURE [facility] (no units) Date Value Range [...] thrombosis while anticoagulated with warfarin transferred to [facility] from [facility] for management of retroperitoneal bleed. She is [...] know if she wants to see the [facility] GI team - Stage I [...] recommending SONIAA since would be close to [facility] and she would benefit for [...] intestine with complication 03/12/2012 ANDREW VINCENT MD [facility] [address] [facility] [place] [address] This assessment and plan was formulated [...] while anticoagulated with warfar in transferred to [facility] from [facility] for management of retroperitoneal bleed. S he [...] TROPONIN Imaging No new Cultures BLOOD CULTURE [facility] (no units) Date Value Range [...] thrombosis while anticoagulated with warfarin transferred to [facility] from [facility] for management of retroperitoneal bleed. She is [...] intestine with complication 03/12/2012 ANDREW VINCENT MD [facility] [address] [place] [address] This assessment and plan was formulated both [...] be different from the orig [facility]. 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 S he [...] TROPONIN Imaging No new Cultures BLOOD CULTURE [facility] (no units) Date Value Range [...] thrombosis while anticoagulated with warfarin transferred to [facility] from [facility] for management of retroperitoneal bleed. She is [...] continued DHT,TF - Diet: NPO - per DIRECTOR GENERAL, high risk of aspiration - continue ice [...] intestine with complication 03/12/2012 ANDREW VINCENT MD [facility] [address] [place] [address] This assessment and plan was formulated both [...] might be different from the orig inal. 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 S he [...] TROPONIN Imaging No new Cultures BLOOD CULTURE [facility] (no units) Date Value Range [...] thrombosis while anticoagulated with warfarin transferred to [facility] from [facility] for management of retroperitoneal bleed. She is [...] intestine with complication 03/12/2012 ANDREW VINCENT MD [facility] [address] [place] [address] This assessment and plan was [...] the resident s note. PHIL VARMA MD [facility] [address] [facility] [place] [address] Rosa Sauer MD - 05/04/2014 8:26 AM [...] at referring hospital. She was transferred to [facility] f or active hemorrhage and [...] rounds. Rosa Reynoso, R2 SICU/Trauma Personal pager: [phone] Team pager: [phone] Angeles Acevedo MD - 05/04/2014 7:08 AM PST [facility] DEPARTMENT OF SURGERY EGS ICU Progress Note Division of Trauma and Critical Care ID: Mackenzie Hartley is a 58 year old female with COPD, Crohn's disease, chronic pain, and 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 while anticoagulated with warfarin transferre d to [facility] from [facility] for management of retroperitoneal bleed. She is [...] thrombosis while anticoagulated with warfarin transferred to [facility] from [facility] for management of retroperitoneal bleed. She has required repeated transfers to ICU for respiratory status. She has been diuresed ap propriately while in the ICU and O2 needs have decreased significantly. [facility], but need to keep a close [...] Hannah MD General Surgery Resident, R3 Pager [phone] [facility] [place] [address] [address] Jf Jones MD - 05/03/2014 9:38 AM [...] - TF at goal, + BM Dysphagia: DIRECTOR GENERAL following- remains NPO Anasarca: compression socks,. Goal [...] Call team 01/11 for questions: Team Pager [phone] ATTENDING ADDENDUM: I saw and examined Mackenzie [...] Erin Christensen PA-C. Jf Wiseman MD FACS used equipment sales representative Division of Trauma, Critical Care, and Acute Care Surgery [phone] Elda Emmanuel MD - 05/03/2014 3:49 AM PST EMERGENCY GENERAL SURGERY ICU PROGRESS NOTE: Attending Physician: Jf Wiseman MD 05/03/2014 ID: Mackenzie Hartley is a 58 year old female with COPD, Crohn's disease, chronic pain, and coagulopa thy resulting in splenic artery thrombosis while anticoagulated with warfarin transferred to [facility] from [facility] for management of retroperitoneal bleed. She is [...] thrombosis while anticoagulated with warfarin transferred to [facility] from [facility] for management of retroperitoneal bleed. 1. Neuro: [...] this patient encounter. Elda Glez MD Pager [phone] Plastic Surgery R2 [facility] Diagnoses: 555.2 Crohn's disease of [...] holding Q6W Remicade- will consult hematology in [facility] week regarding of timing of resuming remicade Severe malnutrition: - TF at goal, + BM, Dysphagia: DIRECTOR GENERAL following- remains NPO Anasarca: compression socks,. Goal [...] Call team 01/11 for questions: Team Pager [phone] ATTENDING ADDENDUM: I saw and examined Mackenzie [...] Marge Harris PA-C. Jf Wiseman MD FACS used equipment sales representative Division of Trauma, Critical Care, and Acute Care Surgery [phone] GIAHarAngeles oglesby MD - 05/02/2014 6:55 AM PST [facility] DEPARTMENT OF SURGERY EGS ICU Progress Note Division of Trauma and Critical Care ID: Mackenzie Hartley is a 58 year old female with COPD, Crohn's disease, chronic pain, and 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 while anticoagulated with warfarin transferre d to [facility] from [facility] for management of retroperitoneal bleed. She is [...] thrombosis while anticoagulated with warfarin transferred to [facility] from [facility] for management of retroperitoneal bleed. Neuro: Minimize [...] Hannah MD General Surgery Resident, R3 Pager [phone] [place] [phone] arris, Angeles Hanna MD - 05/02/2014 2:14 [...] Hannah MD General Surgery Resident, R3 Pager [phone] ean-Claude Albrecht DMD, MD - 05/01/2014 10:[address] [facility] DEPARTMENT OF SURGERY EGS Progress Note ID: Mackenzie Hartley is a 58 year old female with COPD, Crohn's disease, chronic pain, and 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 while anticoagulated with warfarin transferre d to [facility] from [facility] for management of retroperitoneal bleed. She is [...] thrombosis while anticoagulated with warfarin transferred to [facility] from [facility] for management of retroperitoneal bleed. Overall, she is improving. However, remains tachycardic with leukocytosis - WBC [address] 05/01 showed - moderate ascites and pleural effusions and hematoma. 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 [facility] [address] [facility] [place] [address] Jf Jones MD - 04/30/2014 11:08 AM [...] at referring hospital. She was transferred to [facility] fo r active hemorrhage and [...] malnutrition: - pulled DHT- refusing replacement. Await DIRECTOR GENERAL eval if passes swallow will give chance to prove adequate po intake. Expect will require TFs again Dysphagia: await DIRECTOR GENERAL eval today. Cont meds and feed via [...] Call team 01/11 for questions: Team Pager [phone] ATTENDING ADDENDUM: I saw and examined Mackenzie [...] Marge Harris PA-C. Jf Wiseman MD FACS used equipment sales representative Division of Trauma, Critical Care, and Acute Care Surgery [phone] Angeles Acevedo MD - 04/30/2014 1:18 AM PST [facility] DEPARTMENT OF SURGERY EGS ICU Progress Note Division of Trauma and Critical Care ID: Mackenzie Hartley is a 58 year old female with COPD, Crohn's disease, chronic pain, and 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 while anticoagulated with warfarin transferre d to [facility] from [facility] for management of retroperitoneal bleed. She is [...] thrombosis while anticoagulated with warfarin transferred to [facility] from [facility] for management of retroperitoneal bleed. Overall, she is improving. However, remains tachycardic with leukocytosis -- difficult to t ease out if this is secondary to asplenia. Will obtain CT abd pelvis today to clarify. 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 [facility] [address] Aravind Morales MD - 04/29/2014 11:43 AM PSTICU Attending: I saw and examined Mackenzie Hartley ([id number]) with Erin Christensen PA-C on 04/29/14 and [...] of time documented by Kaci Massey MD Theoretical Physics Teacher Trauma, Critical Care & Acute Care Surgery [...] at referring hospital. She was transferred to [facility] fo r active hemorrhage. Hospital [...] resolving cont current H2O via DHT Dysphagia: DIRECTOR GENERAL consulted, ice chips only. Cont meds and [...] Call team 01/11 for questions: Team Pager [phone] Chelly Blum MD,M PH - 04/28/2014 3:03 [...] at referring hospital. She was transferred to [facility] fo r active hemorrhage. Hospital [...] Hyernatremia: resolving, reduce H2O to 30ml/hr Dysphagia: DIRECTOR GENERAL consulted, ice chips only. Cont meds and [...] Call team 01/11 for questions: Team Pager [phone] Angeles Acevedo MD - 04/28/2014 5:[address] [facility] DEPARTMENT OF SURGERY EGS ICU Progress Note Division of Trauma and Critical Care ID: Mackenzie Hartley is a 58 year old female with COPD, Crohn's disease, chronic pain, and 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 while anticoagulated with warfarin transferre d to [facility] from [facility] for management of retroperitoneal bleed. She is s/p ex lap, splenectomy, and packing with lap pads at OSH and from reopening of laparotomy, evacua tion of 2-3 L of intraabdominal hematoma, closure of open abdomen SUBJECTIVE: Extubated, neurologically doing much better. 3 L NC Underwent successful thrombin injection of L COMMUNICATIONS EQUIPMENT INSTALLER pseudoaneurysm by IR 04/26 MEDICATIONS: Current facility-administered [...] thrombosis while anticoagulated with warfarin transferred to [facility] from [facility] for management of retroperitoneal bleed. Neuro: dilaudid IV PRN and intermittent versed for sedation CV: HD stable Per vascular: arterial duplex of L COMMUNICATIONS EQUIPMENT INSTALLER to assess for stability of PSA shows [...] Hannah MD General Surgery Resident, R3 Pager [phone] [facility] [place] [address] [place] [facility] [place] [address] Xin Irizarry M D - 04/27/2014 11:55 [...] diagnosti c imaging and laboratory study results [facility] DEPARTMENT: [id number] - HEM FACULTY [facility] Place of Service: - Inpatient Date of Service: 04-27-2014 Modifiers: GC - Resident Involved Suggested CPT: 71720 - Initial, Comp; Mod complex 50 min XIN AGEE MD [facility] [address] [place] [address] wpriya Rudy Markham Adriel - 04/27/2014 11:55 AM PST Hematology Consult Progress Note Primary Service: EGS Primary Attending: Jf Wiseman MD Hospital Length of Stay: 4 Interval Events: - extubated - thrombin injection to COMMUNICATIONS EQUIPMENT INSTALLER pseudoaneurysm - heparin gtt started last night Subjective: Patient is unable to provide history as she remains encephalopathic. Did speak with her , who confirmed history obtained in initial heme consult note. States she givens s been on warfarin since her 2011 [facility] admission with no known thrombotic [...] assessme nt and plan. Rudy Sarmiento, DO [facility] Internal Medicine PGY3 Pager [phone] Mirela Josue MD - 04/27/2014 10:49 AM PST [facility] Department of Surgery Progress Note [...] underwent successful thrombin injection of the left COMMUNICATIONS EQUIPMENT INSTALLER pseudoaneurysm by IR last night. Heparin restarted [...] ultraso und guided thrombin injection of left COMMUNICATIONS EQUIPMENT INSTALLER pseudoanuerysm. Will order arterial duplex of left COMMUNICATIONS EQUIPMENT INSTALLER to assess for stability of pseudoaneurysm Monitor [...] - hemorrhage vs HCAP LUCY MARKS MD [address] [place] [address] This assessment and plan was formulated both independently and in conjunction with the [facility] ular Surgery Team as well as the attending provider of record above regarding management of this patient and their medical issues. It is accurate to the best of my knowledge, and is s ubject to modification based on clinical developments, new data, or final imaging results. banning general hospital staff I saw and evaluated the patient. I agree with the findings and the plan of care as petern laxmi in the resident s note. Left femoral pseudoaneurysm appears resolved. Stable from [facility] standpoint. No further imaging required unless clinical status changes. Mirela Thompson M.D. [facility] Vascular Surgery [address] [facility] [place] [address] Email: [email or web address] Jf Jones MD - 04/27/2014 8:03 AM [...] at referring hospital. She was transferred to [facility] fo r active hemorrhage. Hospital [...] H2O Hyernatremia: water 100ml/hr via DHT Dysphagia: DIRECTOR GENERAL consulted, ice chips only JULIANE: ATN from [...] Call team 01/11 for questions: Team Pager [phone] ATTENDING ADDENDUM: I saw and examined Mackenzie [...] Erin Christensen PA-C. Jf Wiseman MD FACS used equipment sales representative Division of Trauma, Critical Care, and Acute Care Surgery [phone] aElda tejada MD - 04/27/2014 4:52 AM PST EMERGENCY GENERAL SURGERY ICU PROGRESS NOTE: Attending Physician: Jf Wiseman MD 04/27/2014 ID: Mackenzie Hartley is a 58 year old female with COPD, Crohn's disease, chronic pain, and coagulopa thy resulting in splenic artery thrombosis while anticoagulated with warfarin transferred to [facility] from [facility] for management of retroperitoneal bleed. She is [...] HR EVENTS: - Incidentally found to have COMMUNICATIONS EQUIPMENT INSTALLER pseudoaneurysm, injected with thrombin by IR - [...] thrombosis while anticoagulated with warfarin transferred to [facility] from [facility] for management of retroperitoneal bleed. Neuro: oxy [...] this patient encounter. Elda Glez MD Pager [phone] Plastic Surgery R2 [facility] Diagnoses: 555.2 Crohn's disease of [...] Attending:Dr. Lenny Calhoun MD (Fellow)/pager: Dr. Vang [phone] Medications Procedure Meds: Dilaudid IV 0.5mg Midazolam [...] at referring hospital. She was transferred to [facility] fo r active hemorrhage. Hospital [...] Call team 01/11 for questions: Team Pager [phone] Angeles Acevedo MD - 04/26/2014 5:24 AM PST [facility] DEPARTMENT OF SURGERY EGS ICU Progress Note Division of Trauma and Critical Care ID: Mackenzie Hartley is a 58 year old female with COPD, Crohn's disease, chronic pain, and 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 while anticoagulated with warfarin transferre d to [facility] from [facility] for management of retroperitoneal bleed. She is [...] thrombosis while anticoagulated with warfarin transferred to [facility] from [facility] for management of retroperitoneal bleed. Neuro: dilaudid [...] Hannah MD General Surgery Resident, R3 Pager [phone] [facility] [place] [address] [facility] [address] ithya Bailey MD - 04/25/2014 6:40 AM PSTTSICU Attending 04/25/14 58 yo woman critically ill with complex surgical and medical history, transferred to [facility] intraabdominal and retroperitoneal hemorrhage 2 days ago. [...] Call team 01/11 for questions: Team Pager [phone] Angeles Acevedo MD - 04/25/2014 4:39 AM PST [facility] DEPARTMENT OF SURGERY EGS ICU Progress Note Division of Trauma and Critical Care ID: Mackenzie Hartley is a 58 year old female with COPD, Crohn's disease, chronic pain, and 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 while anticoagulated with warfarin transferre d to [facility] from [facility] for management of retroperitoneal bleed. She is [...] thrombosis while anticoagulated with warfarin transferred to [facility] from [facility] for management of retroperitoneal bleed. Neuro: dilaudid [...] Hannah MD General Surgery Resident, R3 Pager [phone] [facility] [place] [address] Rich Pappas MD - 04/24/2014 9:21 AM [...] extubate Initial surgical contact: Miladis at pager [phone] Nithya Andres MD - 04/24/2014 5:25 AM [...] exploration at referring hospital. IR embolization at [facility]. Hospital Day #1 ICU Day [...] Call team 01/11 for questions: Team Pager [phone] Angeles Acevedo MD - 04/24/2014 2:04 AM PST [facility] DEPARTMENT OF SURGERY EGS Consult Progress Note Division of Trauma and Critical Care ID: Mackenzie Hartley is a 58 year old female with COPD, Crohn's disease, chronic pain, and 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 while anticoagulated with warfarin transferre d to [facility] from [facility] for management of retroperitoneal bleed. She is [...] thrombosis while anticoagulated with warfarin transferred to [facility] from [facility] for management of retroperitoneal bleed. 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 MEDICATIONS: Fentanyl IV 150 mcg Midazolam IV [...] | + +--------+ + + + | [facility] PORTABLE | Routin | 04/27/2014 | [...] | + + + + + | [facility] | [address] | [place] [address] | | | JANELL SHARP | BERTRAM [...] Lupe SANDERS | [address] | [place], [place] | | | [facility] | [address] | [address] | | | TESTS | | | [...] [facility] | [address] | [place] [address] | | | SERVICES, CORE | PARK [...] [facility] | [address] | [place] [address] | | | SERVICES, CORE | PARK [...] | | | LABORATORY | | | CHILEAN | | | SERVICES, | | | [...] | + + + + + | [facility] | [address] [facility] | [place] [address] | | | ARON, JANELL | BERTRAM [...] [facility] | [address] | [place], [place] | | | [facility] | [address] | [address] | | | TESTS | | | [...] MARQUAM | [address] | [place], [place] | | | [facility] | [address] | [address] | | | TESTS | | | [...] | + + + + + | [facility] | [address] | [place] [address] | | | SERVICES, CORE | [address] | | | + + + + + MAGNESIUM, PLASMA (05/12/2014 1:07 AM PST) + +---------+ + + + | Component | Value | Ref Range | Performed | Pathologist | | | | | At | Signature | + +---------+ + + + | MAGNESIUM,P | 1.5 (L) | 1.8 - 2.5 mg/dL | [facility] | | | JFMA | | | [...] | + + + + + | [facility] | [address] [facility] | [place] [address] | | | SERVICES, CORE | BERTRAM [...] | | | LABORATORY | | | CHILEAN | | | SERVICES, | | | [...] the MDRD equation recommended by the | [facility] | | National Kidney Disease [...] | + + + + + | [facility] | [address] | [place] [address] | | | JANELL SHARP | BERTRAM [...] | + + + + + | [facility] | [address] | [place] [address] | | | JANELL SHARP | BERTRAM [...] - MARILYN | [address] | [place], [place] | | | [facility] | [address] | [address] | | | TESTS | | | [...] (H) | 60 - 99 mg/dL | [facility] - | | | GLUCOSE, [...] SANDERS | [address] | [place], [place] | | | [facility] | [address] | [address] | | | TESTS | | | [...] | + + + + + | [facility] | [address] | [place] [address] | | | SERVICES, CORE | PARK [...] | + + + + + | [facility] | [address] | [place] [address] | | | SERVICES, CORE | BERTRAM [...] | | | LABORATORY | | | CHILEAN | | | SERVICES, | | | [...] | + + + + + | [facility] | [address] | [place] [address] | | | SERVICES, CORE | PARK [...] (H) | 0.90 - 1.20 INR | [facility] | | | | | [...] | + + + + + | [facility] | [address] | [place] [address] | | | SERVICES, CORE | PARK [...] - MAR[facility] | [address] | [place], [place] | | | [facility] | [address] | [address] | | | TESTS | | | [...] + + + | [facility] | [address] | [place], [place] | | | [facility] | [address] | [address] | | | TESTS | | | [...] | | + +---------+ + + | [facility] DEPARTMENT OF | | | [...] MARQUAM | [address] | [place], [place] | | | [facility] | [address] | [address] | | | TESTS | | | [...] MAR[facility] | [address] | [place], [place] | | | [facility] | [address] | [address] | | | TESTS | | | [...] | + + + + + | [facility] | [address] | [place] [address] | | | SERVICES, CORE | [address] | | | + + + + + MAGNESIUM, PLASMA (05/10/2014 3:39 AM PST) + +---------+ + + + | Component | Value | Ref Range | Performed | Pathologist | | | | | At | Signature | + +---------+ + + + | MAGNESIUM,P | 1.4 (L) | 1.8 - 2.5 mg/dL | [facility] | | | JFMA | [...] | + + + + + | [facility] | [address] [facility] | [place] [address] | | | SERVICES, CORE | PARK [...] | | | LABORATORY | | | CHILEAN | | | SERVICES, | | | [...] the MDRD equation recommended by the | [facility] | | National Kidney Disease [...] | + + + + + | [facility] | [address] | [place] [address] | | | ARON, JANELL | BERTRAM [...] | + + + + + | [facility] | [address] | [place] [address] | | | JANELL SHARP | BERTRAM [...] DAVIDAM | [address] | [place], [place] | | | [facility] | [facility] | [address] | | | TESTS | | | [...] SANDERS | [address] | [place], [place] | | | [facility] | [address] | [address] | | | TESTS | | | [...] MARQUAM | [address] | [place], [place] | | | [facility] | [address] | [address] | | | TESTS | | | [...] | + + + + + | [facility] | [address] | [place] [address] | | | SERVICES, CORE | BERTRAM [...] [facility] | [address] | [place] [address] | | | SERVICES, CORE | PARK [...] | | | LABORATORY | | | CHILEAN | | | SERVICES, | | | [...] | + + + + + | [facility] | [address] | [place] [address] | | | SERVICES, CORE | PARK [...] | + + + + + | [facility] | [address] | [place] [address] | | | SERVICES, CORE | BERTRAM [...] (H) | 60 - 99 mg/dL | [facility] - | | | GLUCOSE, [...] + + + | [facility] | [address] | [place], [place] | | | [facility] | [address] | [address] | | | TESTS | | | [...] MARQUAM | [address] | [place], [place] | | | [facility] | [address] | [address] | | | TESTS | | | [...] | + + + + + | [facility] | [address] | [place] [address] | | | SERVICES, JANELL | BERTRAM [...] [facility] | [address] | [place] [address] | | | SERVICES, CORE | PARK [...] | | | LABORATORY | | | CHILEAN | | | SERVICES, | | | [...] | + + + + + | [facility] | [address] | [place] [address] | | | SERVICES, CORE | PARK [...] | + + + + + | [facility] | [address] | [place] [address] | | | SERVICES, CORE | BERTRAM [...] SANDERS | [address] | [place], [place] | | | [facility] | [facility] | [address] | | | TESTS | | | [...] - DAVIDAM | [address] | [place], [place] | | | [facility] | [facility] | [address] | | | TESTS | | | [...] [facility] | [address] | [place] [address] | | | JANELL SHARP | PARK [...] [facility] | [address] | [place] [address] | | | SERVICES, CORE | BERTRAM [...] | | | LABORATORY | | | CHILEAN | | | SERVICES, | | | [...] | + + + + + | [facility] | [address] | [place] [address] | | | SERVICES, CORE | BERTRAM [...] | + + + + + | [facility] | [address] | [place] [address] | | | SERVICES, JANELL | PARK [...] MARQUAM | [address] | [place], [place] | | | [facility] | [address] | [address] | | | TESTS | | | [...] | + + + + + | [facility] | [address] | [place] [address] | | | SERVICES, CORE | BERTRAM [...] (H) | 60 - 99 mg/dL | [facility] - | | | GLUCOSE, [...] SANDERS | [address] | [place], [place] | | | [facility] | [address] | [address] | | | TESTS | | | [...] MARQUAM | [address] | [place], [place] | | | [facility] | [address] | [address] | | | TESTS | | | [...] | + + + + + | [facility] | [address] | [place] [address] | | | SERVICES, CORE | BERTRAM [...] [facility] | [address] | [place] [address] | | | SERVICES, CORE | PARK [...] | | | LABORATORY | | | CHILEAN | | | SERVICES, | | | [...] | + + + + + | [facility] | [address] | [place] [address] | | | SERVICES, CORE | PARK [...] [facility] | [address] | [place] [address] | | | SERVICES, CORE | BERTRAM [...] | [facility] | [address] [facility] | [place] [address] | | | SERVICES, CORE | PARK [...] [facility] | [address] | [place] [address] | | | ARON, CORE | BERTRAM [...] [facility] | [address] | [place] [address] | | | SERVICES, CORE | BERTRAM [...] | | | LABORATORY | | | CHILEAN | | | SERVICES, | | | [...] | + + + + + | [facility] | [address] | [place] [address] | | | SERVICES, CORE | PARK [...] | + + + + + | [facility] | [address] | [place] [address] | | | SERVICES, CORE | [address] | | | + + + + + WELCOME TO [employer] (VIDEO) (05/04/2014 2:18 PM PST) + +--------+ [...] + + + + | [facility] | [address] | [place] [address] | | | [facility] | [address] | | | + + [...] [facility] | [address] | [place] [address] | | | SERVICES, CORE | PARK [...] [facility] | [address] | [place] [address] | | | SERVICES, [facility] | [address] | | [...] [facility] | [address] | [place] [address] | | | SERVICES, CORE | PARK [...] [facility] | [address] | [place] [address] | | | SERVICES, CORE | PARK [...] | | | LABORATORY | | | CHILEAN | | | SERVICES, | | | [...] | + + + + + | [facility] | [address] | [place] [address] | | | SERVICES, CORE | BERTRAM [...] | + + + + + | [facility] | [address] | [place] [address] | | | SERVICES, CORE | BERTRAM [...] [facility] | [address] | [place] [address] | | | SERVICES, CORE | PARK [...] [facility] | [address] | [place] [address] | | | SERVICES, CORE | PARK [...] [facility] | [address] | [place] [address] | | | SERVICES, CORE | PARK [...] | + + + + + | [facility] | [address] | [place] [address] | | | SERVICES, CORE | PARK [...] [facility] | [address] | [place], [place] | | | [facility] | [address] | [address] | | | TESTS | | | [...] | + + + + + | [facility] | [address] [facility] | [place] [address] | | | SERVICES, CORE | PARK [...] | + + + + + | [facility] | [address] | [place] [address] | | | SERVICES, CORE | PARK [...] | | | LABORATORY | | | CHILEAN | | | SERVICES, | | | [...] | + + + + + | [facility] | [address] | [place] [address] | | | SERVICES, CORE | BERTRAM [...] | + + + + + | [facility] | [address] | [place] [address] | | | SERVICES, CORE | BERTRAM [...] [facility] | [address] | [place] [address] | | | ARON, JANELL | PARK [...] | | | LABORATORY | | | CHILEAN | | | SERVICES, | | | [...] the MDRD equation recommended by the | [facility] | | National Kidney Disease Education Program. [...] | [facility] | [address] [facility] | [place] [address] | | | SERVICES, CORE | PARK [...] | | | LABORATORY | | | CHILEAN | | | SERVICES, | | | [...] | + + + + + | [facility] | [address] | [place] [address] | | | SERVICES, [facility] | [address] | | [...] [facility] | [address] | [place], [place] | | | THERAPY | [address] | [address] | | + + + + + [...] [facility] | [address] | [place], [place] | | | THERAPY | [address] | [address] | | + + + + + [...] [facility] | [address] | [place] [address] | | | SERVICES, CORE | PARK [...] | + + + + + | [facility] | [address] | [place] [address] | | | ARON, JANELL | BERTRAM [...] [facility] | [address] | [place] [address] | | | SERVICES, CORE | [address] [...] | | | LABORATORY | | | CHILEAN | | | SERVICES, | | | [...] | + + + + + | [facility] | [address] | [place] [address] | | | SERVICES, CORE | PARK [...] | + + + + + | [facility] | [address] | [place] [address] | | | SERVICES, CORE | PARK [...] DEPT OF | [address] | [place], [place] | | | CARDIOLOGY | [address] | [address] | | + + + + + X-RAY PORTABLE CHEST 1 VIEW (05/02/2014 2:11 AM PST) + + + + + + | Component | Value | Ref Range | Performed | Pathologist | | | | | At | Signature | + + + + + + | X-RAY | EXAM: ID CHEST 1 VIEW | | | | [...] | + + + + + | [facility] | [address] | [place] [address] | | | SERVICES, CORE | PARK [...] SANDERS | [address] | [place], [place] | | | [facility] | [facility] | [address] | | | TESTS | | | [...] - MAR[facility] | [address] | [place], [place] | | | [facility] | [facility] | [address] | | | TESTS | | | [...] | + + + + + | [facility] | [address] | [place] [address] | | | SERVICES, CORE | [address] | | | + + + + + X-RAY PORTABLE CHEST 1 VIEW (05/01/2014 3:37 AM PST) + + + + + + | Component | Value | Ref Range | Performed | Pathologist | | | | | At | Signature | + + + + + + | X-RAY | EXAM: ID CHEST 1 VIEW | | | | [...] Bilateral | | | | | | [id number] | | | | | | pleural [...] [facility] | [address] | [place] [address] | | | SERVICES, JANELL | BERTRAM [...] | + + + + + | [facility] | [address] | [place] [address] | | | SERVICES, CORE | [address] [...] | | | LABORATORY | | | CHILEAN | | | SERVICES, | | | [...] the MDRD equation recommended by the | [facility] | | National Kidney Disease Education Program. [...] [facility] | [address] | [place] [address] | | | SERVICES, CORE | PARK [...] | + + + + + | [facility] | [address] | [place] [address] | | | JANELL SHARP | BERTRAM [...] SANDERS | [address] | [place], [place] | | | [facility] | [facility] | [address] | | | TESTS | | | [...] + + | Performing | Address | City[facility]State[facility] | Phone Number | | Organization | | | | + +---------+ + + | [facility] DEPARTMENT OF | | | [...] + + + | X-RAY | STUDY: ID CHEST 1 VIEW | | | | [...] | + + + + + | [facility] | [address] | [place] [address] | | | SERVICES, CORE | PARK [...] | + + + + + | [facility] | [address] [facility] | [place] [address] | | | JANELL SHARP | BERTRAM [...] | + + + + + | [facility] | [address] | [place] [address] | | | JANELL SHARP | [address] [...] | | | LABORATORY | | | CHILEAN | | | SERVICES, | | | [...] | + + + + + | [facility] | [address] | [place] [address] | | | SERVICES, CORE | PARK [...] | | | LABORATORY | | | CHILEAN | | | SERVICES, | | | [...] the MDRD equation recommended by the | [facility] | | National Kidney Disease [...] | + + + + + | [facility] | [address] | [place] [address] | | | ARON, JANELL | BERTRAM [...] [facility] | [address] | [place], [place] | | | [facility] | [address] | [address] | | | TESTS | | | [...] [facility] | [address] | [place] [id number] | | | SERVICES, CORE | BERTRAM [...] [facility] | [address] | [place] [address] | | | SERVICES, CORE | PARK [...] | | | LABORATORY | | | CHILEAN | | | SERVICES, | | | [...] | + + + + + | [facility] | [address] | [place] [address] | | | ARON, JANELL | BERTRAM [...] | + + + + + | [facility] | [address] [facility] | [place] [address] | | | SERVICES, JANELL | BERTRAM [...] | + + + + + | [facility] | [address] | [place] [address] | | | SERVICES, CORE | [address]TRAM [...] (H) | 60 - 99 mg/dL | [facility] - | | | GLUCOSE, [...] SANDERS | [address] | [place], [place] | | | [facility] | [address] | [address] | | | TESTS | | | [...] [facility] | [address] | [place] [address] | | | SERVICES, CORE | PARK [...] [facility] | [address] | [place] [address] | | | SERVICES, CORE | PARK [...] [facility] | [address] | [place] [address] | | | SERVICES, CORE | PARK [...] [facility] | [address] | [place] [address] | | | SERVICES, CORE | PARK [...] | | | LABORATORY | | | CHILEAN | | | SERVICES, | | | [...] | + + + + + | [facility] | [address] [facility] | [place] [address] | | | SERVICES, JANELL | [address] [...] | + + + + + | [facility] | [address] | [place] [address] | | | ARON, JANELL | BERTRAM [...] | + + + + + | [facility] | [address] [facility] | [place] [address] | | | SERVICES, CORE | PARK [...] | | + +---------+ + + | [facility] DEPARTMENT OF | | | [...] | + + + + + | [facility] | [address] | [place] [address] | | | ARON, JANELL | BERTRAM [...] [facility] | [address] | [place], [place] | | | [facility] | [address] | [address] | | | TESTS | | | | + + + + + X-RAY ABD LTD FEEDING TUBE EVAL PORTABLE (04/27/2014 10:33 AM PST) + + + + + + | Component | Value | Ref Range | Performed | Pathologist | | | | | At | Signature | + + + + + + | X-RAY ABD | STUDY: ID ABD LTD | | | | | [...] [facility] | [address] | [place] [address] | | | ARON, JANELL | BERTRAM [...] | + + + + + | [facility] | [address] | [place] [address] | | | SERVICES, CORE | [address]TRAM [...] | + + + + + | [facility] | [address] | [place] [address] | | | SERVICES, CORE | BERTRAM [...] [facility] | [address] | [place] [address] | | | SERVICES, CORE | PARK [...] | | | LABORATORY | | | [place] | | | SERVICES, | | | [...] | + + + + + | [facility] | [address] [facility] | [place] [address] | | | SERVICES, CORE | BERTRAM [...] [facility] | [address] | [place] [address] | | | SERVICES, JANELL | PARK [...] | + + + + + | [facility] | [address] | [place] [address] | | | SERVICES, CORE | BERTRAM [...] | + + + + + | [facility] | [address] | [place] [address] | | | SERVICES, CORE | PARK [...] [facility] | [address] | [place] [address] | | | SERVICES, CORE | [address] | | | + + + + + MAGNESIUM, PLASMA (04/26/2014 7:41 PM PST) + +-------+ + + + | Component | Value | Ref Range | Performed | Pathologist | | | | | At | Signature | + +-------+ + + + | MAGNESIUM,P | 2.0 | 1.8 - 2.5 mg/dL | [facility] | | | LASMA | [...] | + + + + + | [facility] | [address] | [place] [address] | | | SERVICES, CORE | PARK [...] | | | LABORATORY | | | [place] | | | SERVICES, | | | [...] | + + + + + | [facility] | [address] | [place] [address] | | | SERVICES, CORE | BERTRAM [...] PRIMARY | | | | | | PAINT SPECIALIST: Rudy | | | | | | [...] [facility] | [address] | [place], [place] | | | [facility] | [facility] | [id number] | | | TESTS | | | | + + + + + [facility] EXT CALEB MONTERROSO [...] | | + +---------+ + + | [facility] DEPARTMENT OF | | | [...] | + + + + + | [facility] | [address] | [place] [address] | | | SERVICES, CORE | BERTRAM [...] IMRELA | | | | | | JAY [...] [facility] | [address] | [place] [address] | | | SERVICES, CORE | PARK [...] | + + + + + | [facility] | [address] | [place] [address] | | | SERVICES, CORE | PARK [...] | + + + + + | [facility] | [address] | [place] [address] | | | SERVICES, CORE | BERTRAM [...] | + + + + + | [facility] | [address] | [place] [address] | | | SERVICES, CORE | PARK [...] [facility] | [address] | [place] [address] | | | SERVICES, CORE | PARK [...] | | | LABORATORY | | | CHILEAN | | | SERVICES, | | | [...] | + + + + + | [facility] | [address] | [place] [address] | | | JANELL SHARP | BERTRAM [...] [facility] | [address] | [place] [address] | | | SERVICES, CORE | PARK [...] | + + + + + | [facility] | [address] | [place] [address] | | | JANELL SHARP | BERTRAM [...] [facility] | [address] | [place], [place] | | | [facility] | [address] | [address] | | | TESTS | | | [...] | | | LABORATORY | | | CHILEAN | | | SERVICES, | | | [...] the MDRD equation recommended by the | [facility] | | National Kidney Disease [...] | + + + + + | [facility] | [address] | [place] [address] | | | JANELL SHARP | BERTRAM [...] MARILYN | [address] | [place], [place] | | | [place], [facility]INT [facility] CARE | [address] | [address] | | | TESTS | | | [...] | + + + + + | [facility] | [address] | [place] [address] | | | SERVICES, CORE | BERTRAM [...] | + + + + + | [facility] | [address] | [place] [address] | | | SERVICES, CORE | BERTRAM [...] + + + + | PRODUCT | [id number] | | [facility] | | | UNIT [...] + + + + | BLOOD | [id number] | | [facility] | | | PRODUCT [...] DEPARTMENT OF | [address] | [place] [address] | | | PATHOLOGY | [address] [...] + + + + | PRODUCT | [id number] | | [facility] | | | UNIT [...] + + + + | BLOOD | [id number] | | [facility] | | | PRODUCT [...] DEPARTMENT OF | [address] | [place] [address] | | | PATHOLOGY | [address] [...] | + + + + + | [facility] | [address] | [place] [address] | | | SERVICES, JANELL | PARK [...] | + + + + + | [facility] | [address] [facility] | [place] [address] | | | SERVICES, CORE | PARK [...] | | | LABORATORY | | | CHILEAN | | | SERVICES, | | | [...] the MDRD equation recommended by the | [facility] | | National Kidney Disease [...] | + + + + + | [facility] | [address] | [place] [address] | | | JANELL SHARP | BERTRAM [...] [facility] | [address] | [place] [address] | | | SERVICES, CORE | PARK [...] [facility] | [address] | [place] [address] | | | SERVICES, CORE | PARK [...] [facility] | [address] | [place] [address] | | | SERVICES, CORE | BERTRAM [...] | + + + + + | [facility] | [address] | [place] [address] | | | SERVICESJANELL | [address] [...] MARGOPIAM | [address] | [place], [place] | | | [facility] | [facility] | [address] | | | TESTS | | | [...] SANDERS | [address] | [place], [place] | | | [facility] | [address] | [address] | | | TESTS | | | [...] [facility] | [address] | [place] [address] | | | SERVICES, CORE | BERTRAM [...] | + + + + + | [facility] | [address] | [place] [address] | | | SERVICES, CORE | BERTRAM [...] [facility] | [address] | [place] [address] | | | ARON, CORE | BERTRAM [...] | + + + + + | [facility] | [address] | [place] [address] | | | SERVICES, JANELL | [address] | | | + + + + + X-RAY PORTABLE CHEST 1 VIEW (04/24/2014 5:32 AM PST) + + + + + + | Component | Value | Ref Range | Performed | Pathologist | | | | | At | Signature | + + + + + + | X-RAY | STUDY: ID CHEST 1 VIEW | | | | [...] | | + +---------+ + + | [facility] DEPARTMENT | | | | | [...] | + + + + + | [facility] | [address] | [place] [address] | | | JANELL SHARP | BERTRAM [...] | | | LABORATORY | | | CHILEAN | | | SERVICES, | | | [...] [facility] | [address] | [place] [address] | | | SERVICES, CORE | PARK [...] | + + + + + | [facility] | [address] | [place] [address] | | | SERVICES, CORE | PARK [...] | + + + + + | [facility] | [address] | [place] [address] | | | SERVICES, CORE | BERTRAM [...] [facility] | [address] | [place], [place] | | | THERAPY | [address] | [address] | | + + + + + [...] [facility] | [address] | [place], [place] | | | THERAPY | [address] | [address] | | + + + + + [...] | | | LABORATORY | | | CHILEAN | | | SERVICES, | | | [...] the MDRD equation recommended by the | [facility] | | National Kidney Disease [...] | + + + + + | [facility] | [address] [facility] | [place] [address] | | | SERVICES, CORE | PARK [...] [facility] | [address] | [place] [address] | | | SERVICES, CORE | PARK [...] | + + + + + | [facility] | [address] [facility] | [place] [address] | | | SERVICES, CORE | PARK [...] [facility] | [address] | [place] [address] | | | SERVICES, CORE | BERTRAM [...] | [facility] | [address] [facility] | [place] [address] | | | SERVICES, JANELL | BERTRAM [...] [facility] | [address] | [place] [address] | | | SERVICES, CORE | PARK [...] [facility] | [address] | [place] [address] | | | SERVICES, CORE | PARK [...] | | | LABORATORY | | | CHILEAN | | | SERVICES, | | | [...] | + + + + + | [facility] | [address] | [place] [address] | | | SERVICES, CORE | BERTRAM [...] | + + + + + | [facility] | [address] | [place] [address] | | | JANELL SHARP | BERTRAM [...] + + + | [facility] | [address] | [place], [place] | | | [facility] | [address] | [address] | | | TESTS | | | [...] PRIMARY | | | | | | PAINT SPECIALIST: Rudy | | | | | | [...] 5 | | | | | | Mauritanian vascular sheath | | | | | [...] | | | | for a 5 Mauritanian | | | | | | IMAcatheter. [...] | | | | artery. A 3 Mauritanian | | | | | | microcatheterwas [...] [facility] | [address] | [place], [place] | | | CARDIOLOGY | [address] | [address] | | + + + + + [...] + + + + | PRODUCT | [id number] | | [facility] | | | UNIT [...] + + + + | BLOOD | [id number] | | [facility] | | | PRODUCT [...] | + + + + + | [facility] DEPARTMENT OF | [address] | [place] [address] | | | PATHOLOGY | [address] [...] + + + + | PRODUCT | [id number] | | [facility] | | | UNIT [...] + + + + | BLOOD | [id number] | | [facility] | | | PRODUCT [...] | + + + + + | [facility] DEPARTMENT OF | [address] | [place] [address] | | | PATHOLOGY | [address] [...] + + + + | PRODUCT | [id number] | | [facility] | | | UNIT [...] + + + + | BLOOD | [id number] | | [facility] | | | PRODUCT [...] OF | [address] | [place] [address] | | | PATHOLOGY | [address] [...] + + + + | PRODUCT | [id number] | | [facility] | | | UNIT [...] + + + + | BLOOD | [id number] | | [facility] | | | PRODUCT [...] | + + + + + | [facility] DEPARTMENT OF | [address] | [place] [address] | | | PATHOLOGY | [address] [...] + + + + | PRODUCT | [id number] | | [facility] | | | UNIT [...] + + + + | BLOOD | [id number] | | [facility] | | | PRODUCT [...] DEPARTMENT OF | [address] | [place] [address] | | | PATHOLOGY | [address] [...] + + + + | PRODUCT | [id number] | | [facility] | | | UNIT [...] + + + + | BLOOD | [id number] | | [facility] | | | PRODUCT [...] | + + + + + | [facility] DEPARTMENT OF | [address] | [place] [address] | | | PATHOLOGY | [address] | | | + + + + + X-RAY PORTABLE CHEST 1 VIEW (04/23/2014 11:41 AM PST) + + + + + + | Component | Value | Ref Range | Performed | Pathologist | | | | | At | Signature | + + + + + + | X-RAY | EXAM: ID CHEST 1 VIEW | | | | [...] | | + +---------+ + + | [facility] DEPARTMENT OF | | | [...] + + + + | PRODUCT | [id number] | | [facility] | | | UNIT [...] + + + + | BLOOD | [id number] | | [facility] | | | PRODUCT [...] DEPARTMENT OF | [address] | [place] [address] | | | PATHOLOGY | [address] [...] + + + + | PRODUCT | [id number] | | [facility] | | | UNIT [...] + + + + | BLOOD | [id number] | | [facility] | | | PRODUCT [...] DEPARTMENT OF | [address] | [place] [address] | | | PATHOLOGY | [address] [...] + + + + | PRODUCT | [id number] | | [facility] | | | UNIT [...] + + + + | BLOOD | [id number] | | [facility] | | | PRODUCT [...] DEPARTMENT OF | [address] | [place] [address] | | | PATHOLOGY | [address] [...] + + + + | PRODUCT | [id number] | | [facility] | | | UNIT [...] + + + + | BLOOD | [id number] | | [facility] | | | PRODUCT [...] | + + + + + | [facility] DEPARTMENT OF | [address] | [place] [address] | | | PATHOLOGY | [address] [...] + + + + | PRODUCT | [id number] | | [facility] | | | UNIT [...] + + + + | BLOOD | [id number] | | [facility] | | | PRODUCT [...] | + + + + + | [facility] DEPARTMENT OF | [address] | [place] [address] | | | PATHOLOGY | [address] [...] + + + + | PRODUCT | [id number] | | [facility] | | | UNIT [...] + + + + | BLOOD | [id number] | | [facility] | | | PRODUCT [...] | + + + + + | [facility] | [address] | [place] [address] | | | PATHOLOGY | [address] [...] + + + + | PRODUCT | [id number] | | [facility] | | | UNIT [...] + + + + | BLOOD | [id number] | | [facility] | | | PRODUCT [...] DEPARTMENT OF | [address] | [place] [address] | | | PATHOLOGY | [address] [...] + + + + | PRODUCT | [id number] | | [facility] | | | UNIT [...] + + + + | BLOOD | [id number] | | [facility] | | | PRODUCT [...] | + + + + + | [facility] | [address] | [place] [address] | | | PATHOLOGY | [address] [...] + + + + | PRODUCT | [id number] | | [facility] | | | UNIT [...] + + + + | BLOOD | [id number] | | [facility] | | | PRODUCT [...] [facility] DE[facility] | [address] | [place] [address] | | | PATHOLOGY | [address] [...] + + + + | PRODUCT | [id number] | | [facility] | | | UNIT [...] + + + + | BLOOD | [id number] | | [facility] | | | PRODUCT [...] | + + + + + | [facility] DEPARTMENT OF | [address] | [place] [address] | | | PATHOLOGY | [address] [...] + + + + | PRODUCT | [id number] | | [facility] | | | UNIT [...] + + + + | BLOOD | [id number] | | [facility] | | | PRODUCT [...] | + + + + + | [facility] DEPARTMENT | [address] | [place] [address] | | | PATHOLOGY | [address] [...] + + + + | PRODUCT | [id number] | | [facility] | | | UNIT [...] + + + + | BLOOD | [id number] | | [facility] | | | PRODUCT [...] | + + + + + | [facility] DEPARTMENT OF | [address] | [place] [address] | | | PATHOLOGY | [address] [...] + + + + | PRODUCT | [id number] | | [facility] | | | UNIT [...] + + + + | BLOOD | [id number] | | [facility] | | | PRODUCT [...] | + + + + + | [facility] DEPARTMENT OF | [address] | [place] [address] | | | PATHOLOGY | [address] [...] + + + + | PRODUCT | [id number] | | [facility] | | | UNIT [...] + + + + | BLOOD | [id number] | | [facility] | | | PRODUCT [...] | + + + + + | [facility] DEPARTMENT OF | [address] | [place] [address] | | | PATHOLOGY | [address] [...] [facility] | [address] | [place] [address] | | | SERVICES, CORE | PARK [...] [facility] | [address] | [place] [address] | | | SERVICES, CORE | [address]TRAM [...] | + + + + + | [facility] | [address] | [place] [address] | | | JANELL SHARP | [address] [...] | | | LABORATORY | | | CHILEAN | | | SERVICES, | | | [...] [facility] | [address] | [place] [address] | | | SERVICES, CORE | PARK [...] [facility] | [address] | [place] [address] | | | SERVICES, CORE | PARK [...] [facility] | [address] | [place] [address] | | | SERVICES, CORE | PARK [...] | + + + + + | [facility] | [address] | [place] [address] | | | ARON, JANELL | [address] [...] 89 | 60 - 99 mg/dL | [facility] - | | | GLUCOSE, [...] [facility] | [address] | [place], [place] | | | [facility] | [address] | [address] | | | TESTS | | | [...] [facility] | [address] | [place] [address] | | | SERVICES, | [address] [...] LABORATORY | [address] | [place] [address] | | | SERVICES, | [address] [...] + + + + | PRODUCT | [id number] | | [facility] | | | UNIT [...] + + + + | BLOOD | [id number] | | [facility] | | | PRODUCT [...] | + + + + + | [facility] DEPARTMENT OF | [address] | [place] [address] | | | PATHOLOGY | [address] [...] + + + + | PRODUCT | [id number] | | [facility] | | | UNIT [...] + + + + | BLOOD | [id number] | | [facility] | | | PRODUCT [...] [facility] DE[facility] | [address] | [place] [address] | | | PATHOLOGY | [address] [...] + + + + | PRODUCT | [id number] | | [facility] | | | UNIT [...] + + + + | BLOOD | [id number] | | [facility] | | | PRODUCT [...] | + + + + + | [facility] | [address] | [place] [address] | | | PATHOLOGY | [address] [...] + + + + | PRODUCT | [id number] | | [facility] | | | UNIT [...] + + + + | BLOOD | [id number] | | [facility] | | | PRODUCT [...] DEPARTMENT OF | [address] | [place] [address] | | | PATHOLOGY | [address] [...] + + + + | PRODUCT | [id number] | | [facility] | | | UNIT [...] + + + + | BLOOD | [id number] | | [facility] | | | PRODUCT [...] | + + + + + | [facility] | [address] | [place] [address] | | | PATHOLOGY | [address] [...] + + + + | PRODUCT | [id number] | | [facility] | | | UNIT [...] + + + + | BLOOD | [id number] | | [facility] | | | PRODUCT [...] | + + + + + | [facility] | [address] | [place] [address] | | | PATHOLOGY | [address] [place] [...] | | | | | modification) on [facility] 05/02/14 at | | | | [...] | | | | ONCE, 1 dose, [facility] 04/24/14 at | | AM PST | | | | | 1015 | | | | | | + +-------+ +-------+---+---+ +---+---+ | | | +---+---+ + +-------+ +-------+---+---+ | bisacodyl (DULCOLAX) | Given | 04/25/19 | 10 mg | | | | suppository 10 mg 10 mg, rectal, | | 15 10:55 | | | | | ONCE, 1 dose, [facility] 04/25/14 at | | AM PST [...] | | | | | modification) on [facility] 05/02/14 at | | | | [...] | | | | | dose on [facility] 05/02/14 at 0530, | | | [...] | | | (after last modification) on [facility] | | | | | | | [...]
--- OUTSIDE RECORDS SUMMARY | ~2019-02-11 | XMS | Encounter Summary ---
Demographics + + + | Address | [address] | | | [place] [address] | + + + | Home Phone [...] | + + + + + | Kloe Willinghma | [place] | [address] | | | | | [place], [place] | | | | | [address] | | + + + + + | Cami Sawyer | ECON | Unknown | | + + + + + Care Team Providers + +------+ + | Care Animal Nursery Worker Name | Role | Phone | [...] 2015 | | General Surgery at | HUMAN MACHINE INTERFACE ENGINEER [address] | | | | | PPV [address] | [address] | | | | | [address] | [facility] [place] | | | | | Mailcode: L223A | [address] | | | | | Jose Ortiz | [phone] | | | | | [address] [facility] [place] | | | | | | [address] | | | | | | [phone] | | | +--------+ + + + [...]
--- OUTSIDE RECORDS SUMMARY | ~2019-02-11 | XMS | Encounter Summary ---
Demographics + + + | Address | [address] | | | [place] [address] | + + + | Home Phone [...] + + | Author | [facility] | + + + | Organization | [facility] | + + + | Address | Unknown | + + + | Phone | Unavailable | + + + Support + + + + + | Name | Relationship | Address | Phone | + + + + + | Kole Willingham | [place] | [address] | | | | | [place], [place] | | | | | [address] | | + + + + + | Cami Sawyer | ECON | Unknown | | + + + + + Care Team Providers + +------+ + | Care Senior Enlisted Advisor Name | Role | Phone | + [...] Rd | | | | | | [place], [place] | | | | | | [address] | | | +--------+ + + + [...]
--- OUTSIDE RECORDS SUMMARY | ~2019-02-11 | XMS | Encounter Summary ---
Demographics + + + | Address | [address] | | | [place] [address] | + + + | Home Phone | | + + + | Preferred Language | Unknown | + + + | Marital Status | | + + + | Christianity Affiliation | NRP | + + + | Race | White | + + + | Ethnic Group | Not or | + + + Author + + + | Author | [facility] | + + + | Organization | [facility] | + + + [...] [place], [place] | | | | | [address] | | + + + + + | Cami Sawyer | ECON | Unknown | | + + + + + Care Team Providers + +------+ + | Care Senior Master Scheduler Name | Role | Phone | + [...] | Crohn's | Neel Vega MD | [address] | | | | | disease of | YULIA | [address] | | | | | both small | HOSP[facility] | [address]en [address] | | | | | and large | CARE CLINIC | [place], [place] | | | | | intestine | [address] | [address] | | | | | without | 2ND | Phone: | | | | | complication | [place], | [phone] | | | | | s | [place] [address] | Fax: | | | | | | Phone: | [phone] | | | | | | [phone] | | | | | | | Fax: | | | | | | | [phone] | | +--------+--------+ + + + + Encounter Details +--------+---------+ + + + | Date | Type | Department | Care Team | Description | +--------+---------+ + + + | 07/27/ | Office | Digestive Health | Trice Marie MD | Rectovaginal fistula | | 2016 | Visit | Center at [facility] [address] | [address] | (Primary Dx); | | | [address] | [place], | Crohn's disease of | | | | Mailcode: [place] | [place] [address] | both small and large | | | | for Health and | [phone] | intestine with | | | | Healing, Building [address] | | complication (HCC) | | | | [place], [place] | | | | | | [address] | | | | | | [phone] | | | +--------+---------+ + + + [...] up and minor procedur e of: Anoscopy Tirce Lundberg MD - 07/28/2015 1:32 PM PDT [...] Dimple in her vagina seen by her LOBBY CONCIERGE ~1995 For fibroids and vaginal bleeding, she [...] Referral patient, I spent 62 minutes of zedo-ae-gfde time, of which more than half the [...] colonos copy was this past month at [facility] in [facility] with Dr. Krishna, which per patient [...] alcohol or use illicit drugs. Lives in [place] with her . FH: Family History: None [...] Recommendations: 1) Review outside colonoscopy completed at [facility] - request has been sent 2) Plan for flex sig locally in [place] in 8 weeks time. Patient to send [...] | + +--------+ + + + | [place] ANOSCOPY, DIAG | Routin | 08/04/2015 | [...]
--- OUTSIDE RECORDS SUMMARY | ~2019-02-11 | XMS | Encounter Summary ---
Demographics + + + | Address | [address] | | | [place] [address] | + + + | Home Phone [...] [place], [place] | | | | | [address] | | + + + + + | Cami Sawyer | ECON | Unknown | | + + + + + Care Team Providers + +------+ + | Care Bail Bondsman Name | Role | Phone | + [...] 2015 | | General Surgery at | WOOLEN TESTER [address] | | | | | PPV [address] | [address] | | | | | [address] | [facility] [place] | | | | | Mailcode: L223A | [address] | | | | | Jose Ortiz | [phone] | | | | | [address] [facility] [place] | | | | | | [address] | | | | | | [phone] | | | +--------+ + + + [...]
--- OUTSIDE RECORDS SUMMARY | ~2019-02-11 | XMS | Encounter Summary ---
Demographics + + + | Address | [address] | | | [place] [address] | + + + | Home Phone [...] [place], [place] | | | | | [address] | | + + + + + | Cami Sawyer | ECON | Unknown | | + + + + + Care Team Providers + +------+ + | Care Equal Opportunity Assistant Name | Role | Phone | [...] | | 2015 | | Center at [facility] [address] | [address] | | | | | Tomasz Menezes | [facility] | | | | | Mailcode: [place]gor[place] | [place] [address] | | | | | [facility] and | [phone] | | | | | [place] [address] | | | | | | [place], [place] | | | | | | [address] | | | | | | [phone] | | | +--------+ + + + [...]
--- OUTSIDE RECORDS SUMMARY | ~2019-02-11 | XMS | Encounter Summary ---
Demographics + + + | Address | [address] | | | [place] [address] | + + + | Home Phone [...] [place], [place] | | | | | [address] | | + + + + + | Cami Sawyer | ECON | Unknown | | + + + + + Care Team Providers + +------+ + | Care Medical Office Clerk Name | Role | Phone | [...] | | | 2011 | Event | [facility] | [address] | | | | | Admitting Desk | [address] | | | | | Located on the 9 | [place], [place] | | | | | floor [address] | [address] | | | | | [address] | [phone] | | | | | [place], [place] | | | | | | [address] | Bigg Smalls MD | | | | | | [address] | | | | | | [address] | | | | | | [facility] [place] | | | | | | [address] | | | | | | [phone] | | | | | | | [...] | Froylan Vázquez CRNA 15 min. Break 6857-5802 | | | 9 | | | [...] Smith RN | | Tanvi | | WATER FILTERER | | | y Cath | | [...] Cole RN | | Periph | | WATER FILTERER | | | eral | | | [...]
--- OUTSIDE RECORDS SUMMARY | ~2019-02-11 | XMS | Encounter Summary ---
Demographics + + + | Address | [address] | | | [place] [address] | + + + | Home Phone [...] + + + | Author | [facility] | + + + | Organization | [facility] | + + + | Address | Unknown | + + + | Phone | Unavailable | + + + Support + + + + + | Name | Relationship | Address | Phone | + + + + + | Kole Willingham | [place] | [address] | | | | | [place], [place] | | | | | [phone] | | + + + + + | Cami Sawyer | ECON | Unknown | | + + + + + Care Team Providers + +------+ + | Care Maintenance Representative Name | Role | Phone | [...] 2015 | | General Surgery at | [employer] [address] | | | | | [facility] [address] | [address] | | | | | [address] | [facility] [place] | | | | | Mailcode: [id number] | [address] | | | | | Jose Ortiz | [phone] | | | | | [address] [facility] [place] | | | | | | [address] | | | | | | [phone] | | | +--------+ + + + [...]
--- OUTSIDE RECORDS SUMMARY | ~2019-02-11 | XMS | Clinical Summary ---
Demographics + + + | Address | [address] | | | [place] [address] | + + + | Home Phone | | + + + | Preferred Language | Unknown | + + + | Marital Status | | + + + | Caodaism Affiliation | NRP | + + + | Race | White | + + + | Ethnic Group | Not or | + + + Author + + + | Author | [facility] | + + + | Organization | [facility] | + [...] [place], [place] | | | | | [address] | | + + + + + | Cami Sawyer | ECON | Unknown | | + + + + + Care Team Providers + +------+ + | Care Director Of Market Intelligence Name | Role | Phone | + +------+ + | Aren Rose DO | PCP | | + +------+ + Source Comments [facility] is fully live on both EpicCare Ambulatory and EpicCare InPatient.[facility]ly [facility] Allergies + + + + [...] + + | Overview: Vaccinations given at [facility] pneumonia and flu and | | at [facility] HIB and meningeal coccal [...] | | | | | | | [address] | | + +--------+ +--------+ + +--------+ | [employer] | AARP | xxxxxxxxx-x | 04/11/19 | [phone] | [address] | Indemn | | RETIRED PEOPLE | | | 13-Pre | 9 | [id number] | ity | | | | | sent | | [place], [place] | | | | | | | | [address] | | + +--------+ +--------+ + +--------+ [...] | 1956 | [phone] | [place] [address] | | | bianca | | | 8 (Home) | | | | | | | [phone] | | | | | | | [...]
--- OUTSIDE RECORDS SUMMARY | ~2019-02-11 | XMS | Clinical Summary ---
Demographics + + + | Address | [address] | | | [place] [address] | + + + | Home Phone | | + + + | Preferred Language | Unknown | + + + | Marital Status | | + + + | Spiritism Affiliation | Unknown | + + + | Race | Unknown | + + + | Ethnic Group | Unknown | + + + Author + + + | Author | [facility] | | | and [place] | + + + | Organization | [facility] | | | and [...] Team Providers + +------+ + | Care Log Preparer Name | Role | Phone | + [...] Overview: Added automatically from request for surgery [id number] | + + + + + | [...] | 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
--- OUTSIDE RECORDS SUMMARY | ~2019-02-11 | XMS | Encounter Summary ---
Demographics + + + | Address | [address] | | | [place] [address] | + + + | Home Phone | | + + + | Preferred Language | Unknown | + + + | Marital Status | | + + + | Scientologist Affiliation | NRP | + + + [...] + + + + + | Kole Willingahm | [place] | [address] | | | | | [place], [place] | | | | | [address] | | + + + + + | Cami Sawyer | ECON | Unknown | | + + + + + Care Team Providers + +------+ + | Care Planning Aide Name | Role | Phone | [...] | | | 2011 | Event | [facility] | [address] | | | | | Admitting Desk | [address] | | | | | Located on the [address] | [place], [place] | | | | | floor [address] | [address] | | | | | [address] | [phone] | | | | | [place], [place] | | | | | | [address] | Bgig Smalls MD | | | | | | [address] | | | | | | [address] | | | | | | [facility] [place] | | | | | | [address] | | | | | | [phone] | | | | | | | [...] | Froylan Vázquez CRNA 15 min. Break 5991-2320 | | | 9 | | | [...] Smith RN | | Tanvi | | MANAGER ANIMATION | | | y Cath | | [...] Cole RN | | Periph | | MANAGER ANIMATION | | | eral | | | [...]
--- OUTSIDE RECORDS SUMMARY | ~2019-02-11 | XMS | Encounter Summary ---
Demographics + + + | Address | [address] | | | [place] [address] | + + + | Home Phone | | + + + | Preferred Language | Unknown | + + + | Marital Status | | + + + | Confucianist Affiliation | NRP | + + + [...] [place], [place] | | | | | [address] | | + + + + + | Cami Sawyer | ECON | Unknown | | + + + + + Care Team Providers + +------+ + | Care Bell Person Name | Role | Phone | + [...] | | 2016 | | Center at [facility] [address] | [address] | | | | | [address] | [facility] | | | | | Mailcode: [place] | [place] [address] | | | | | [facility] and | [phone] | | | | | [place] [address] | | | | | | [place], [place] | | | | | | [address] | | | | | | [phone] | | | +--------+ + + + [...]
--- OUTSIDE RECORDS SUMMARY | ~2019-02-11 | XMS | Encounter Summary ---
Demographics + + + | Address | [address] | | | [place] [address] | + + + | Home Phone | | + + + | Preferred Language | Unknown | + + + | Marital Status | | + + + | Bahai Affiliation | NRP | + + + | Race | White | + + + | Ethnic Group | Not or | + + + Author + + + | Author | [facility] | + + + | Organization | [facility] | + + + | Address | Unknown | + + + | Phone | Unavailable | + + + Support + + + + + | Name | Relationship | Address | Phone | + + + + + | Kole Hartley | LAMONT | [address] | | | | | [place], [place] | | | | | [id number] | | + + + + + | Cami Sawyer | ECON | Unknown | | + + + + + Care Team Providers + +------+ + | Care Kickboxing Instructor Name | Role | Phone | + [...] | | 2015 | | [facility] | [address] | evacuation of | | | | Admitting Desk | [address] | hematoma, control of | | | | Located on the 9 | [place], [place] | retroperitonieal | | | | floor [address] [facility] | [address] | hemorage, lysis of | | | | [address] | [phone] | adhesions, wound vac | | | | [place], [place] | | placement, and | | | | [address] | | abdominal wall | | | [...] f rom the original. [facility] DEPARTMENT OF SURGERY EMERGENCY GENERAL SURGERY [...] and is discharged to [facility] care. Mackenzie Hartley is discharged [...] 100mls three times a day. Destination: Destination: Jail Facility Thank you for the opportunity to [...] f rom the original. [facility] DEPARTMENT OF SURGERY [...] s while anticoagulated with warfarin transferred to [facility] from [facility] for hanh gement of retroperitoneal bleed. 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 S he [...] thrombosis while anticoagulated with warfarin transferred to [facility] from [facility] for management of retroperitoneal bleed. She is [...] know if she wants to see the [facility] GI team - Stage [...] recommending VIBRA since would be close to [facility] and she would benefit [...] with complication 03/12/2012 Jean-Claude Albrecht D.M.D., M.D. [facility] [address]A [address] [place] [id number] This assessment and plan was formulated both [...] MD - 05/11/2014 8:51 AM PST . 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 S he [...] thrombosis while anticoagulated with warfarin transferred to [facility] from [facility] for management of retroperitoneal bleed. She is [...] know if she wants to see the [facility] GI team - Stage [...] recommending VIBRA since would be close to [facility] and she would benefit [...] with complication 03/12/2012 Jean-Claude Albrecht D.M.D., M.D. [facility] [address] [place] [address] This assessment and plan was formulated both [...] being active. Pt's has been at the [facility] supporting her. Pt is not hinduism but appreciates support. Intervention: Provided a listening presence and explored pt's anxieties, worries and hopes. Plan: Spiritual care remains available. 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 S he [...] thrombosis while anticoagulated with warfarin transferred to [facility] from [facility] for management of retroperitoneal bleed. She is [...] know if she wants to see the [facility] GI team - Stage [...] recommending JJ since would be close to [facility] and she would benefit [...] intestine with complication 03/12/2012 ANDREW VINCENT MD [facility] [address]A [address] [place] [address] This assessment and plan was [...] note might be different from the [facility]. 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 S he [...] thrombosis while anticoagulated with warfarin transferred to [facility] from [facility] for management of retroperitoneal bleed. She is [...] know if she wants to see the [facility] GI team - Stage [...] recommending SONIAA since would be close to [facility] and she would benefit [...] intestine with complication 03/12/2012 ANDREW VINCENT MD [facility] [address]A [address] [place] [address] This assessment and plan was [...] note might be different from the orig [facility]. 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 S he [...] TROPONIN Imaging No new Cultures BLOOD CULTURE [facility] (no units) Date Value [...] thrombosis while anticoagulated with warfarin transferred to [facility] from [facility] for management of retroperitoneal bleed. She is [...] know if she wants to see the [facility] GI team - Stage [...] recommending SONIAA since would be close to [facility] and she would benefit [...] intestine with complication 03/12/2012 ANDREW VINCENT MD [facility] [address]A [address] [place] [address] This assessment and plan was formulated both [...] this note might be different from the 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 S he [...] TROPONIN Imaging No new Cultures BLOOD CULTURE [facility] (no units) Date Value [...] thrombosis while anticoagulated with warfarin transferred to [facility] from [facility] for management of retroperitoneal bleed. She is [...] intestine with complication 03/12/2012 ANDREW VINCENT MD [facility] [address]A [address] [place] [address] This assessment and plan was [...] this note might be different from the 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 S he [...] TROPONIN Imaging No new Cultures BLOOD CULTURE [facility] (no units) Date Value [...] thrombosis while anticoagulated with warfarin transferred to [facility] from [facility] for management of retroperitoneal bleed. She is [...] continued DHT,TF - Diet: NPO - per PAVING RAMMER, high risk of aspiration - continue ice [...] intestine with complication 03/12/2012 ANDREW VINCENT MD [facility] 10A [address] [place] [address] This assessment and plan was [...] note might be different from the orig [facility]. 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 S he [...] TROPONIN Imaging No new Cultures BLOOD CULTURE [facility] (no units) Date Value [...] thrombosis while anticoagulated with warfarin transferred to [facility] from [facility] for management of retroperitoneal bleed. She is [...] intestine with complication 03/12/2012 ANDREW VINCENT MD [facility] 10A [address] [place] [phone] This assessment and plan was formulated both [...] the resident s note. PHIL VARMA MD [facility] 10A [address] [place] [address] [place] [address] Rosa Sauer MD - 05/04/2014 8:26 AM [...] at referring hospital. She was transferred to [facility] f or active hemorrhage and underwent [...] rounds. Rosa Reynoso, R2 SICU/Trauma Personal pager: [phone] Team pager: [phone] Angeles Acevedo MD - 05/04/2014 7:08 AM PST [facility] DEPARTMENT OF SURGERY EGS ICU Progress Note Division of Trauma and Critical Care ID: Makcenzie Hartley is a 58 year old female with COPD, Crohn's disease, chronic pain, and 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 while anticoagulated with warfarin transferre d to [facility] from [facility] for management of retroperitoneal bleed. She is [...] 300 mg, 300 mg, feeding tube, TID, Gayarti Christensen PA-C, 3 00 mg at 05/03/142154 [...] thrombosis while anticoagulated with warfarin transferred to [facility] from [facility] for management of retroperitoneal bleed. She has required repeated transfers to ICU for respiratory status. She has been diuresed ap propriately while in the ICU and O2 needs have decreased significantly. Will transfer to [facility] or, but need to keep a close [...] Hannah MD General Surgery Resident, R3 Pager [phone] [facility] [address] [place] [address] Jf Jones MD - 05/03/2014 9:38 AM [...] - TF at goal, + BM Dysphagia: PAVING RAMMER following- remains NPO Anasarca: compression socks,. Goal [...] Call team 01/11 for questions: Team Pager [phone] ATTENDING ADDENDUM: I saw and examined Mackenzie [...] Erin Christensen PA-C. Jf Wiseman MD FACS labor contract analyst Division of Trauma, Critical Care, and Acute Care Surgery [phone] Elda Emmanuel MD - 05/03/2014 3:49 AM PST EMERGENCY GENERAL SURGERY ICU PROGRESS NOTE: Attending Physician: Jf Wiseman MD 05/03/2014 ID: Mackenzie Hartley is a 58 year old female with COPD, Crohn's disease, chronic pain, and coagulopa thy resulting in splenic artery thrombosis while anticoagulated with warfarin transferred to [facility] from [facility] for management of retroperitoneal bleed. She is [...] thrombosis while anticoagulated with warfarin transferred to [facility] from [facility] for management of retroperitoneal bleed. 1. Neuro: [...] this patient encounter. Elda Glez MD Pager [phone] Plastic Surgery R2 [facility] Diagnoses: 555.2 Crohn's disease of [...] - TF at goal, + BM, Dysphagia: PAVING RAMMER following- remains NPO Anasarca: compression socks,. Goal [...] Call team 01/11 for questions: Team Pager [phone] ATTENDING ADDENDUM: I saw and examined Mackenzie [...] Marge Harris PA-C. Jf Wiseman MD FACS labor contract analyst Division of Trauma, Critical Care, and Acute Care Surgery [id number] ngeles Hannah MD - 05/02/2014 6:55 AM PST [facility] DEPARTMENT OF SURGERY EGS ICU Progress Note Division of Trauma and Critical Care ID: Mackenzie Hartley is a 58 year old female with COPD, Crohn's disease, chronic pain, and 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 while anticoagulated with warfarin transferre d to [facility] from [facility] for management of retroperitoneal bleed. She is [...] thrombosis while anticoagulated with warfarin transferred to [facility] from [facility] for management of retroperitoneal bleed. Neuro: Minimize [...] Hannah MD General Surgery Resident, R3 Pager [phone] [place] [address] Kristina, Angeles Hanna MD - 05/02/2014 2:14 [...] Hannah MD General Surgery Resident, R3 Pager [phone] Jean-Claude Chaidez DMD, MD - 05/01/2014 10:36 AM PST [facility] DEPARTMENT OF SURGERY EGS Progress Note ID: Mackenzie Hartley is a 58 year old female with COPD, Crohn's disease, chronic pain, and 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 while anticoagulated with warfarin transferre d to [facility] from [facility] for management of retroperitoneal bleed. She is [...] thrombosis while anticoagulated with warfarin transferred to [facility] from [facility] for management of retroperitoneal bleed. Overall, she is improving. However, remains tachycardic with leukocytosis - WBC [address] 05/01 showed - moderate ascites and pleural effusions and hematoma. Neuro: dilaudid IV PRN Speech: following continue daily to eval swallow CV: HD stable L MANAGER MERCHANDISING PSA resolved Continue IV lasix today 20 [...] acute care hospitalization Jean-Claude Albrecht D.M.D., M.D. [facility] [place] [address] [place] [facility] [place] [address] Jf Jones MD - 04/30/2014 11:08 AM [...] at referring hospital. She was transferred to [facility] fo r active hemorrhage and underwent [...] malnutrition: - pulled DHT- refusing replacement. Await PAVING RAMMER eval if passes swallow will give chance to prove adequate po intake. Expect will require TFs again Dysphagia: await PAVING RAMMER eval today. Cont meds and feed via [...] Call team 01/11 for questions: Team Pager [phone] ATTENDING ADDENDUM: I saw and examined Mackenzie [...] Marge Harris PA-C. Jf Wiseman MD FACS labor contract analyst Division of Trauma, Critical Care, and Acute Care Surgery [phone] Anglees Acevedo MD - 04/30/2014 1:18 AM PST [facility] DEPARTMENT OF SURGERY EGS ICU Progress Note Division of Trauma and Critical Care ID: Mackenzie Hartley is a 58 year old female with COPD, Crohn's disease, chronic pain, and 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 while anticoagulated with warfarin transferre d to [facility] from [facility] for management of retroperitoneal bleed. She is [...] thrombosis while anticoagulated with warfarin transferred to [facility] from [facility] for management of retroperitoneal bleed. Overall, she is improving. However, remains tachycardic with leukocytosis -- difficult to t ease out if this is secondary to asplenia. Will obtain CT abd pelvis today to clarify. Neuro: dilaudid IV PRN and intermittent versed for sedation CV: HD stable L MANAGER MERCHANDISING PSA resolved Pulm: titrate to O2 >92% [...] Hannah MD General Surgery Resident, R3 Pager [phone] [facility] [address] [place] [address] Aravind Morales MD - 04/29/2014 11:43 AM PSTICU Attending: I saw and examined Mackenzie Hartley ([id number]) with Erin Christensen PA-C on 04/29/14 and [...] documented by valentin HASTINGS. Aravind Massey MD Associate Genetics Professor Trauma, Critical Care & Acute Care Surgery [...] at referring hospital. She was transferred to [facility] fo r active hemorrhage. Hospital Day [...] resolving cont current H2O via DHT Dysphagia: PAVING RAMMER consulted, ice chips only. Cont meds and [...] Call team 01/11 for questions: Team Pager [phone] Chelly Blum MD,M PH - 04/28/2014 3:03 [...] at referring hospital. She was transferred to [facility] fo r active hemorrhage. Hospital Day [...] Hyernatremia: resolving, reduce H2O to 30ml/hr Dysphagia: PAVING RAMMER consulted, ice chips only. Cont meds and [...] Call team 01/11 for questions: Team Pager [phone] Angeles Acevedo MD - 04/28/2014 5:18 AM PST [facility] DEPARTMENT OF SURGERY EGS ICU Progress Note Division of Trauma and Critical Care ID: Mackenzie Hartley is a 58 year old female with COPD, Crohn's disease, chronic pain, and 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 while anticoagulated with warfarin transferre d to [facility] from [facility] for management of retroperitoneal bleed. She is s/p ex lap, splenectomy, and packing with lap pads at OSH and from reopening of laparotomy, evacua tion of 2-3 L of intraabdominal hematoma, closure of open abdomen SUBJECTIVE: Extubated, neurologically doing much better. 3 L NC Underwent successful thrombin injection of L MANAGER MERCHANDISING pseudoaneurysm by IR 04/26 MEDICATIONS: Current facility-administered [...] thrombosis while anticoagulated with warfarin transferred to [facility] from [facility] for management of retroperitoneal bleed. Neuro: dilaudid IV PRN and intermittent versed for sedation CV: HD stable Per vascular: arterial duplex of L MANAGER MERCHANDISING to assess for stability of PSA shows [...] Hannah MD General Surgery Resident, R3 Pager [phone] [facility] [address] [address] Xin Irizarry M D - 04/27/2014 11:55 [...] imaging and laboratory study results EPIC DEPARTMENT: [id number] - HEM FACULTY [facility] Place of Service: - Inpatient Date of Service: 04-27-2014 Modifiers: GC - Resident Involved Suggested CPT: 67339 - Initial, Comp; Mod complex 50 min XIN AGEE MD [facility] [address] [place] [address] wRudy powers Do - 04/27/2014 11:55 AM PST Hematology Consult Progress Note Primary Service: EGS Primary Attending: Jf Wiseman MD Hospital Length of Stay: 4 Interval Events: - extubated - thrombin injection to MANAGER MERCHANDISING pseudoaneurysm - heparin gtt started last night Subjective: Patient is unable to provide history as she remains encephalopathic. Did speak with her , who confirmed history obtained in initial heme consult note. States she givens s been on warfarin since her 2011 [facility] admission with no known [...] assessme nt and plan. Rudy Sarmiento, DO [facility] Internal Medicine PGY3 Pager [phone] Mirela Josue MD - 04/27/2014 10:49 AM PST [facility] Department of Surgery Progress [...] underwent successful thrombin injection of the left MANAGER MERCHANDISING pseudoaneurysm by IR last night. Heparin restarted [...] ultraso und guided thrombin injection of left MANAGER MERCHANDISING pseudoanuerysm. Will order arterial duplex of left MANAGER MERCHANDISING to assess for stability of pseudoaneurysm Monitor [...] - hemorrhage vs HCAP LUCY MARKS MD [facility] [address] [place] [address] This assessment and plan was formulated both independently and in conjunction with the [facility] ular Surgery Team as well as the attending provider of record above regarding management of this patient and their medical issues. It is accurate to the best of my knowledge, and is s ubject to modification based on clinical developments, new data, or final imaging results. [facility] staff I saw and evaluated the patient. I agree with the findings and the plan of care as jannie hair in the resident s note. Left femoral pseudoaneurysm appears resolved. Stable from [facility] standpoint. No further imaging required unless clinical status changes. Mirela Thompson M.D. [facility] Vascular Surgery [address] [facility] [place] [address] Email: [email or web address] Jf Jones MD - 04/27/2014 8:03 AM [...] at referring hospital. She was transferred to [facility] fo r active hemorrhage. Hospital Day [...] H2O Hyernatremia: water 100ml/hr via DHT Dysphagia: PAVING RAMMER consulted, ice chips only JULIANE: ATN from [...] Call team 01/11 for questions: Team Pager [phone] ATTENDING ADDENDUM: I saw and examined Mackenzie [...] Erin Christensen PA-C. Jf Wiseman MD FACS labor contract analyst Division of Trauma, Critical Care, and Acute Care Surgery [phone] ankerElda MD - 04/27/2014 4:52 AM PST EMERGENCY GENERAL SURGERY ICU PROGRESS NOTE: Attending Physician: Jf Wiseman MD 04/27/2014 ID: Mackenzie Hartley is a 58 year old female with COPD, Crohn's disease, chronic pain, and coagulopa thy resulting in splenic artery thrombosis while anticoagulated with warfarin transferred to [facility] from [facility] for management of retroperitoneal bleed. She is [...] HR EVENTS: - Incidentally found to have MANAGER MERCHANDISING pseudoaneurysm, injected with thrombin by IR - [...] thrombosis while anticoagulated with warfarin transferred to [facility] from [facility] for management of retroperitoneal bleed. Neuro: oxy [...] this patient encounter. Elda Glez MD Pager [phone] Plastic Surgery R2 [facility] Diagnoses: 555.2 Crohn's disease of [...] Attending:Dr. Lenny Calhoun MD (Fellow)/pager: Dr. Vang [phone] Medications Procedure Meds: Dilaudid IV 0.5mg Midazolam [...] at referring hospital. She was transferred to [facility] fo r active hemorrhage. Hospital Day [...] Call team 01/11 for questions: Team Pager [phone] Angeles Acevedo MD - 04/26/2014 5:24 AM PST [facility] DEPARTMENT OF SURGERY EGS ICU Progress Note Division of Trauma and Critical Care ID: Mackenzie Hartley is a 58 year old female with COPD, Crohn's disease, chronic pain, and 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 while anticoagulated with warfarin transferre d to [facility] from [facility] for management of retroperitoneal bleed. She is [...] thrombosis while anticoagulated with warfarin transferred to [facility] from [facility] for management of retroperitoneal bleed. Neuro: dilaudid [...] Hannah MD General Surgery Resident, R3 Pager [phone] [facility] & [address] [place] [address] Nithya Andres MD - 04/25/2014 6:40 AM PSTTSICU Attending 04/25/14 58 yo woman critically ill with complex surgical and medical history, transferred to [facility] w ith intraabdominal and [...] Call team 01/11 for questions: Team Pager [phone] Angeles Acevedo MD - 04/25/2014 4:39 AM PST [facility] [place] DEPARTMENT OF SURGERY EGS ICU Progress Note Division of Trauma and Critical Care ID: Mackenzie Hartley is a 58 year old female with COPD, Crohn's disease, chronic pain, and 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 while anticoagulated with warfarin transferre d to [facility] from [facility] for management of retroperitoneal bleed. She is [...] thrombosis while anticoagulated with warfarin transferred to [facility] from [facility] for management of retroperitoneal bleed. Neuro: dilaudid [...] Hannah MD General Surgery Resident, R3 Pager [phone] [facility] & [place] [id number] [facility] [id number] ich Redding MD - 04/24/2014 9:21 AM [...] extubate Initial surgical contact: Miladis at pager [phone] Nithya Andres MD - 04/24/2014 5:25 AM [...] exploration at referring hospital. IR embolization at [facility]. Hospital Day #1 ICU [...] Call team 01/11 for questions: Team Pager [phone] Angeles Acevedo MD - 04/24/2014 2:04 AM PST [facility] [place] DEPARTMENT OF SURGERY EGS Consult Progress Note Division of Trauma and Critical Care ID: Mackenzie Hartley is a 58 year old female with COPD, Crohn's disease, chronic pain, and 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 while anticoagulated with warfarin transferre d to [facility] from [facility] for management of retroperitoneal bleed. She is [...] thrombosis while anticoagulated with warfarin transferred to [facility] from [facility] for management of retroperitoneal bleed. 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 | [place], [place] | | | [facility] | [facility] | [address] | | | TESTS | | | [...] [facility] | [address] | [place] [address] | | | SERVICES, CORE | PARK [...] [facility] | [address] | [place] [address] | | | SERVICES, CORE | [address] [...] | | | LABORATORY | | | AUSTRIAN | | | SERVICES, | | | [...] | + + + + + | [facility] | [address] [facility] | [place] [address] | | | SERVICES, CORE | [address] [...] [facility] | [address] | [place], [place] | | | [facility] | [address] | [address] | | | TESTS | | | [...] - MAR[facility] | [address] | [place], [place] | | | [facility] | [address] | [address] | | | TESTS | | | [...] [facility] | [address] | [place] [address] | | | SERVICES, CORE | [address] | | | + + + + + MAGNESIUM, PLASMA (05/12/2014 1:07 AM PST) + +---------+ + + + | Component | Value | Ref Range | Performed | Pathologist | | | | | At | Signature | + +---------+ + + + | MAGNESIUM,P | 1.5 (L) | 1.8 - 2.5 mg/dL | [facility] | | | JFMA [...] | + + + + + | [facility] | [address] | [place] [address] | | | SERVICES, CORE | PARK [...] | | | LABORATORY | | | AUSTRIAN | | | SERVICES, | | | [...] the MDRD equation recommended by the | [facility] | | National Kidney [...] | + + + + + | [facility] | [address] | [place] [address] | | | JANELL SHARP | [address] [...] | + + + + + | [facility] | [address] | [place] [address] | | | SERVICES, JANELL | [address] [...] MARILYN | [address] | [place], [place] | | | [facility] | [facility] | [address] | | | TESTS | | | [...] (H) | 60 - 99 mg/dL | [facility] - | | | [...] SANDERS | [address] | [place], [place] | | | [facility] | [address] | [address] | | | TESTS | | | [...] | + + + + + | [facility] | [address] | [place] [address] | | | SERVICES, CORE | PARK [...] | + + + + + | [facility] | [address] | [place] [address] | | | SERVICES, CORE | [address] [...] | | | LABORATORY | | | AUSTRIAN | | | SERVICES, | | | [...] the MDRD equation recommended by the | [facility] | | National Kidney [...] | + + + + + | [facility] | [address] [facility] | [place] [address] | | | SERVICES, CORE | PARK [...] [facility] | [address] | [place] [address] | | | SERVICESJANELL | [address] [...] - MARQU[facility] | [address] | [place], [place] | | | [facility] | [address] | [address] | | | TESTS | | | [...] SANDERS | [address] | [place], [place] | | | [facility] | [address] | [address] | | | TESTS | | | [...] | | + +---------+ + + | [facility] DEPARTMENT OF | | [...] MARQUAM | [address] | [place], [place] | | | [facility] | [address] | [address] | | | TESTS | | | [...] - DAVIDAM | [address] | [place], [place] | | | [facility] | [address] | [address] | | | TESTS | | | [...] [facility] | [address] | [place] [address] | | | SERVICES, CORE | [address] | | | + + + + + MAGNESIUM, PLASMA (05/10/2014 3:39 AM PST) + +---------+ + + + | Component | Value | Ref Range | Performed | Pathologist | | | | | At | Signature | + +---------+ + + + | MAGNESIUM,P | 1.4 (L) | 1.8 - 2.5 mg/dL | [facility] | | | LASMA [...] [facility] | [address] | [place] [address] | | | SERVICES, CORE | PARK [...] | | | LABORATORY | | | AUSTRIAN | | | SERVICES, | | | [...] the MDRD equation recommended by the | [facility] | | National Kidney [...] | + + + + + | [facility] | [address] | [place] [address] | | | JANELL SHARP | [address] [...] | + + + + + | [facility] | [address] | [place] [address] | | | SERVICES, JANELL | [address] [...] MARILYN | [address] | [place], [place] | | | [facility] | [facility] | [address] | | | TESTS | | | [...] (H) | 60 - 99 mg/dL | [facility] - | | | [...] SANDERS | [address] | [place], [place] | | | [facility] | [facility] | [address] | | | TESTS | | | [...] MARILYN | [address] | [place], [place] | | | [facility] | [address] | [address] | | | TESTS | | | [...] | + + + + + | [facility] | [address] | [place] [address] | | | SERVICES, CORE | [address] [...] [facility] | [address] | [place] [address] | | | JANELL SHARP | [address] [...] | | | LABORATORY | | | AUSTRIAN | | | SERVICES, | | | [...] [facility] | [address] | [place] [address] | | | SERVICES, CORE | PARK [...] | + + + + + | [facility] | [address] | [place] [address] | | | SERVICES, CORE | [address] [...] (H) | 60 - 99 mg/dL | [facility] - | | | [...] SANDERS | [address] | [place], [place] | | | [facility] | [address] | [address] | | | TESTS | | | [...] MARQUAM | [address] | [place], [place] | | | [facility] | [address] | [address] | | | TESTS | | | [...] | + + + + + | [facility] | [address] | [place] [address] | | | SERVICES, CORE | [address]TR[address] [...] [facility] | [address] | [place] [address] | | | SERVICES, CORE | [address] [...] | | | LABORATORY | | | AUSTRIAN | | | SERVICES, | | | [...] | + + + + + | [facility] | [address] | [place] [address] | | | SERVICES, CORE | [address] [...] | + + + + + | [facility] | [address] [facility] | [place] [address] | | | SERVICES, CORE | PARK [...] (H) | 60 - 99 mg/dL | [facility] - | | | [...] SANDERS | [address] | [place], [place] | | | [facility] | [facility] | [address] | | | TESTS | | | [...] - MARQUAM | [address] | [place] | | | [facility] | [facility] | [address] | | | TESTS | | | [...] [facility] | [address] | [place] [address] | | | ARON, CORE | [address] [...] [facility] | [address] | [place] [address] | | | SERVICES, CORE [...] | | | LABORATORY | | | AUSTRIAN | | | SERVICES, | | | [...] | + + + + + | [facility] | [address] | [place] [address] | | | SERVICES, CORE | [address] [...] | + + + + + | [facility] | [address] | [place] [address] | | | SERVICES, CORE | [address]TR[address] [...] MARQU[facility] | [address] | [place], [place] | | | [facility] | [address] | [address] | | | TESTS | | | [...] | + + + + + | [facility] | [address] | [place] [address] | | | ARON, JANELL | [address] [...] (H) | 60 - 99 mg/dL | [facility] - | | | [...] SANDERS | [address] | [place] | | | [facility] | [facility] | [address] | | | TESTS | | | [...] MARILYN | [address] | [place], [place] | | | [facility] | [address] | [address] | | | TESTS | | | [...] | + + + + + | [facility] | [address] | [place] [address] | | | SERVICES, CORE | [address] [...] [facility] | [address] | [place] [address] | | | ARON, JANELL | PARK [...] | | | LABORATORY | | | AUSTRIAN | | | SERVICES, | | | [...] [facility] | [address] | [place] [address] | | | SERVICES, CORE | PARK [...] [facility] | [address] | [place] [address] | | | SERVICES, CORE | PARK [...] LABORATORY | [address] | [place] [address] | | | SERVICES, CORE | PARK [...] | + + + + + | [facility] | [address] | [place] [address] | | | SERVICES, CORE | [address]TRAM [...] [facility] | [address] | [place] [address] | | | SERVICES, CORE | PARK [...] | | | LABORATORY | | | AUSTRIAN | | | SERVICES, | | | [...] | + + + + + | [facility] | [address] | [place] [address] | | | SERVICES, CORE | PARK [...] | + + + + + | [facility] | [address] | [place] [address] | | | SERVICES, CORE | [address]TR[address] [...] + + + + | [facility] | [address] | [place] [address] | | | [facility] | Ellen [...] [facility] | [address] | [place] [address] | | | SERVICES, JANELL | PARK [...] [facility] | [address] | [place] [address] | | | SERVICES, CORE | BERTRAM [...] [facility] | [address] | [place] [address] | | | SERVICES, CORE | [address] [...] [facility] | [address] | [place] [address] | | | SERVICES, CORE | PARK [...] | | | LABORATORY | | | AUSTRIAN | | | SERVICES, | | | [...] [facility] | [address] | [place] [address] | | | SERVICES, CORE | PARK [...] | + + + + + | [facility] | [address] | [place] [address] | | | SERVICES, CORE | PARK [...] [facility] | [address] | [place] [address] | | | SERVICES, CORE | PARK [...] | + + + + + | [facility] | [address] | [place] [address] | | | SERVICES, CORE | B[address]TRAM [...] [facility] | [address] | [place] [address] | | | SERVICES, JANELL | [address] [...] | + + + + + | [facility] | [address] | [place] [address] | | | SERVICES, JANELL | [address]TR[address] [...] [facility] | [address] | [place] | | | [facility] | [address] | [address] | | | TESTS | | | [...] | + + + + + | [facility] | [address] | [place] [address] | | | SERVICES, CORE | PARK [...] | + + + + + | [facility] | [address] | [place] [address] | | | SERVICES, CORE | PARK [...] | | | LABORATORY | | | AUSTRIAN | | | SERVICES, | | | [...] | + + + + + | [facility] | [address] | [place] [address] | | | SERVICES, CORE | PARK [...] | + + + + + | [facility] | [address] | [place] [address] | | | SERVICES, CORE | PARK [...] [facility] | [address] | [place] [address] | | | JANELL SHARP | PARK [...] | | | LABORATORY | | | AUSTRIAN | | | SERVICES, | | | [...] [facility] | [address] | [place] [address] | | | SERVICES, CORE | PARK [...] | | | LABORATORY | | | AUSTRIAN | | | SERVICES, | | | [...] | + + + + + | [facility] | [address] [facility] | [place] [address] | | | JANELL SHARP | [address] [...] [facility] | [address] | [place], [place] | | | THERAPY | [facility] | [address] | | + + + + + [...] [facility] | [address] | [place], [place] | | | THERAPY | [address] | [address] | | + + + + + [...] [facility] | [address] | [place] [address] | | | SERVICES, CORE | PARK [...] | + + + + + | [facility] | [address] | [place] [address] | | | SERVICES, CORE | B[address]TR[address] [...] [facility] | [address] | [place] [address] | | | SERVICES, JANELL | [address] [...] | | | LABORATORY | | | AUSTRIAN | | | SERVICES, | | | [...] | + + + + + | [facility] | [address] | [place] [address] | | | SERVICES, CORE | PARK [...] | + + + + + | [facility] | [address] | [place] [address] | | | SERVICES, CORE | BERTRAM [...] DEPT OF | [address] | [place], [place] | | | CARDIOLOGY | [address] | [address] | | + + + + + [...] | | + +---------+ + + | [facility] DEPARTMENT OF | | [...] | + + + + + | [facility] | [address] | [place] [address] | | | SERVICES, CORE | BERTRAM [...] SANDERS | [address] | [place] | | | [facility] | [address] | [address] | | | TESTS | | | [...] MARILYN | [address] | [place], [place] | | | [facility] | [facility] | [address] | | | TESTS | | | [...] | + + + + + | [facility] | [address] | [place] [address] | | | SERVICES, CORE | BERTRAM [...] Bilateral | | | | | | aqeam-lz-izmqzdsr | | | | | | pleural [...] | + + + + + | [facility] | [address] | [place] [address] | | | SERVICES, CORE | PARK [...] | + + + + + | [facility] | [address] | [place] [address] | | | SERVICES, JANELL | [address] [...] | | | LABORATORY | | | AUSTRIAN | | | SERVICES, | | | [...] the MDRD equation recommended by the | [facility] | | National Kidney [...] | + + + + + | [facility] | [address] | [place] [address] | | | SERVICES, CORE | [address] | | | + + + + + INR (05/01/2014 2:45 AM PST) + +-------+ + + + | Component | Value | Ref Range | Performed | Pathologist | | | | | At | Signature | + +-------+ + + + | INR | 1.14 | 0.90 - 1.20 INR | [facility] | | | | | | LABORATORY [...] [facility] | [address] | [place] [address] | | | JANELL SHARP | BERTRAM [...] [facility] | [address] | [place] | | | [facility] | [address] | [address] | | | TESTS | | | [...] | | + +---------+ + + | [facility] DEPARTMENT OF | | [...] | + + + + + | [facility] | [address] | [place] [address] | | | SERVICES, CORE | PARK [...] | + + + + + | [facility] | [address] | [place] [address] | | | SERVICES, JANELL | BERTR[address] [...] [facility] | [address] | [place] [address] | | | SERVICES, CORE | [address] [...] | | | LABORATORY | | | AUSTRIAN | | | SERVICES, | | | [...] | + + + + + | [facility] | [address] | [place] [address] | | | SERVICES, CORE | [address] [...] | | | LABORATORY | | | AUSTRIAN | | | SERVICES, | | | [...] | + + + + + | [facility] | [address] | [place] [address] | | | ARON, JANELL | [address]ERTRAM [...] [facility] | [address] | [place] | | | [facility] | [facility] | [address] | | | TESTS | | | [...] [facility] | [address] | [place] [address] | | | SERVICES, CORE | PARK [...] [facility] | [address] | [place] [address] | | | SERVICES, CORE | PARK [...] | | | LABORATORY | | | AUSTRIAN | | | SERVICES, | | | [...] | + + + + + | [facility] | [address] | [place] [address] | | | SERVICES, CORE | [address] [...] | + + + + + | [facility] | [address] | [place] [address] | | | SERVICES, JANELL | [address] [...] | + + + + + | [facility] | [address] | [place] [address] | | | [facility], JANELL | [address] | | [...] (H) | 60 - 99 mg/dL | [facility] - | | | [...] [facility] | [address] | [place], [place] | | | [facility] | [facility] | [address] | | | TESTS | | | [...] [facility] | [address] | [place] [address] | | | SERVICES, CORE | PARK [...] [facility] | [address] | [place] [address] | | | SERVICES, CORE | PARK [...] [facility] | [address] | [place] [address] | | | SERVICES, CORE | PARK [...] [facility] | [address] | [place] [address] | | | SERVICES, CORE | PARK [...] | | | LABORATORY | | | AUSTRIAN | | | SERVICES, | | | [...] | + + + + + | [facility] | [address] [facility] | [place] [address] | | | SERVICES, CORE | [address] [...] | + + + + + | [facility] | [address] [facility] | [place] [address] | | | ARON, CORE | [address] [...] | + + + + + | [facility] | [address] | [place] [address] | | | JANELL SHARP | [address] [...] | | + +---------+ + + | [facility] DEPARTMENT OF | | [...] | + + + + + | [facility] | [address] | [place] [address] | | | SERVICES, CORE | BERTRAM [...] [facility] | [address] | [place] | | | [facility] | [facility] | [address] | | | TESTS | | | [...] | + + + + + | [facility] | [address] | [place] [address] | | | SERVICES, CORE | BERTRAM [...] | + + + + + | [facility] | [address] | [place] [address] | | | JANELL SHARP | BERTRAM [...] | + + + + + | [facility] | [address] | [place] [address] | | | SERVICES, CORE | BERTRAM [...] [facility] | [address] | [place] [address] | | | SERVICES, CORE | PARK [...] | | | LABORATORY | | | AUSTRIAN | | | SERVICES, | | | [...] + + | [facility] | [address] | [place] [address] | | | SERVICES, CORE | BERTRAM [...] [facility] | [address] | [place] [address] | | | SERVICES, JANELL | [address] [...] | + + + + + | [facility] | [address] [facility] | [place] [address] | | | SERVICES, CORE | BERTRAM [...] | + + + + + | [facility] | [address] | [place] [address] | | | SERVICES, CORE | PARK [...] | + + + + + | [facility] | [address] [facility] | [place] [address] | | | SERVICES, CORE | [address] | | | + + + + + MAGNESIUM, PLASMA (04/26/2014 7:41 PM PST) + +-------+ + + + | Component | Value | Ref Range | Performed | Pathologist | | | | | At | Signature | + +-------+ + + + | MAGNESIUM,P | 2.0 | 1.8 - 2.5 mg/dL | [facility] | | | [facility] | | | [...] | + + + + + | [facility] | [address] | [place] [address] | | | SERVICES, CORE | PARK [...] | | | LABORATORY | | | [facility]AN | | | SERVICES, | | | [...] | + + + + + | [facility] | [address] | [place] [address] | | | SERVICES, JANELL | BERTRAM [...] PRIMARY | | | | | | DATA QUALITY CONSULTANT: Rudy | | | | | | [...] [facility] | [address] | [place], [place] | | | [facility] | [address] | [address] | | | TESTS | | | [...] | + + + + + | [facility] | [address] | [place] [address] | | | SERVICES, CORE | BERTRAM [...] | | | | | | Kirstie Jay | | | | + + + [...] [facility] | [address] | [place] [address] | | | SERVICES, JANELL | BERTRAM [...] [facility] | [address] | [place] [address] | | | SERVICES, CORE | BERTRAM [...] | + + + + + | [facility] | [address] | [place] [address] | | | SERVICES, CORE | BERTRAM [...] | + + + + + | [facility] | [address] | [place] [address] | | | SERVICES, CORE [...] [facility] | [address] | [place] [address] | | | SERVICES, CORE | PARK [...] | | | LABORATORY | | | AUSTRIAN | | | SERVICES, | | | [...] | + + + + + | [facility] | [address] | [place] [address] | | | ARON, JANELL | BERTRAM [...] [facility] | [address] | [place] [address] | | | SERVICES, CORE | PARK [...] | + + + + + | [facility] | [address] | [place] [address] | | | JANELL SHARP | PARK [...] - [facility] | [address] | [place], [place] | | | [facility] | [address] | [address] | | | TESTS | | | [...] | | | LABORATORY | | | AUSTRIAN | | | SERVICES, | | | [...] | + + + + + | [facility] | [address] [facility] | [place] [address] | | | JANELL SHARP | BERTRAM [...] [facility] | [address] | [place], [place] | | | [facility] | [address] | [address] | | | TESTS | | | [...] [facility] | [address] | [place] [address] | | | SERVICES, CORE | BERTRAM [...] | + + + + + | [facility] | [address] | [place] [address] | | | SERVICES, CORE | BERTRAM [...] + + + + | PRODUCT | [id number] | | [facility] | | | UNIT [...] + + + + | BLOOD | [id number] | | [facility] | | | PRODUCT [...] DEPARTMENT OF | [address] | [place] [address] | | | PATHOLOGY | [address] [...] + + + + | PRODUCT | [id number] | | [facility] | | | UNIT [...] + + + + | BLOOD | [id number] | | [facility] | | | PRODUCT [...] | + + + + + | [facility] DEPARTMENT | [address] | [place] [address] | | | PATHOLOGY | [address] [...] | + + + + + | [facility] | [address] | [place] [address] | | | SERVICES, CORE | PARK [...] | + + + + + | [facility] | [address] | [place] [address] | | | SERVICES, CORE | BERTRAM [...] | | | LABORATORY | | | AUSTRIAN | | | SERVICES, | | | [...] the MDRD equation recommended by the | [facility] | | National Kidney [...] | + + + + + | [facility] | [address] | [place] [address] | | | JANELL SHARP | BERTRAM [...] [facility] | [address] | [place] [address] | | | SERVICES, CORE | PARK [...] [facility] | [address] | [place] [address] | | | SERVICES, CORE | PARK [...] [facility] | [address] | [place] [address] | | | SERVICES, CORE | PARK [...] | + + + + + | [facility] | [address] | [place] [address] | | | SERVICES, JANELL | BERTRAM [...] [facility] | [address] | [place], [place] | | | [facility] | [facility] | [address] | | | TESTS | | | [...] + + + | [facility] | [address] | [place] | | | [facility] | [address] | [address] | | | TESTS | | | [...] | + + + + + | [facility] | [address] | [place] [address] | | | SERVICES, CORE | PARK [...] | + + + + + | [facility] | [address] | [place] [address] | | | JANELL SHARP | BERTRAM [...] | + + + + + | [facility] | [address] | [place] [address] | | | SERVICES, CORE | PARK [...] | + + + + + | [facility] | [address] | [place] [address] | | | JANELL SHARP | BERTRAM [...] | | + +---------+ + + | [facility] DEPARTMENT OF | | [...] | + + + + + | [facility] | [address] | [place] [address] | | | SERVICES, JANELL | BERTRAM [...] | | | LABORATORY | | | AUSTRIAN | | | SERVICES, | | | [...] | + + + + + | [facility] | [address] | [place] [address] | | | SERVICES, CORE | PARK [...] | + + + + + | [facility] | [address] | [place] [address] | | | SERVICES, CORE | PARK [...] | + + + + + | [facility] | [address] | [place] [address] | | | SERVICES, CORE | BERTRAM [...] [facility] | [address] | [place], [place] | | | THERAPY | [address] | [address] | | + + + + + [...] + + | [facility] | [address] [facility] | [place], [place] | | | THERAPY | [address] | [address] | | + + + + + [...] | | | LABORATORY | | | AUSTRIAN | | | SERVICES, | | | [...] the MDRD equation recommended by the | [facility] | | National Kidney Disease Education Program. [...] | + + + + + | [facility] | [address] | [place] [address] | | | JANELL SHARP | BERTRAM [...] LABORATORY | [address] | [place] [address] | | | SERVICES, CORE | PARK [...] | + + + + + | [facility] | [address] | [place] [address] | | | SERVICES, CORE | BERTRAM [...] (L) | 36.0 - 46.0 % | [facility] | | | | | | LABORATORY [...] | + + + + + | [facility] | [address] [facility] | [place] [address] | | | SERVICES, CORE | PARK [...] | + + + + + | [facility] | [address] | [place] [address] | | | SERVICES, CORE | BERTRAM [...] [facility] | [address] | [place] [address] | | | SERVICES, CORE | PARK [...] [facility] | [address] | [place] [address] | | | SERVICES, CORE | PARK [...] | | | LABORATORY | | | AUSTRIAN | | | SERVICES, | | | [...] | + + + + + | [facility] | [address] | [place] [address] | | | SERVICES, CORE | BERTRAM [...] | + + + + + | [facility] | [address] | [place] [address] | | | ARON, JANELL | BERTRAM [...] [facility] | [address] | [place], [place] | | | [facility] | [facility] | [address] | | | TESTS | | | [...] PRIMARY | | | | | | DATA QUALITY CONSULTANT: Rudy | | | | | | [...] + + | [facility] | [address] | [place], [place] | | | CARDIOLOGY | [address] | [address] | | + + + + + [...] + + + + | PRODUCT | [id number] | | [facility] | | | UNIT [...] + + + + | BLOOD | [id number] | | [facility] | | | PRODUCT [...] + + | [facility] | [address] | [place] [address] | | | PATHOLOGY | [address] [...] + + + + | PRODUCT | [id number] | | [facility] | | | UNIT [...] + + + + | BLOOD | [id number] | | [facility] | | | PRODUCT [...] | + + + + + | [facility] | [address] | [place] [address] | | | PATHOLOGY | [address] [...] + + + + | PRODUCT | [id number] | | [facility] | | | UNIT [...] + + + + | BLOOD | [id number] | | [facility] | | | PRODUCT [...] [facility] | [address] | [place] [address] | | | PATHOLOGY | [address] [...] + + + + | PRODUCT | [id number] | | [facility] | | | UNIT [...] + + + + | BLOOD | [id number] | | [facility] | | | PRODUCT [...] | + + + + + | [facility] DEPARTMENT OF | [address] | [place] [address] | | | PATHOLOGY | [address] [...] + + + + | PRODUCT | [id number] | | [facility] | | | UNIT [...] + + + + | BLOOD | [id number] | | [facility] | | | PRODUCT [...] | + + + + + | [facility] DEPARTMENT | [address] | [place] [address] | | | PATHOLOGY | [address] [...] + + + + | PRODUCT | [id number] | | [facility] | | | UNIT [...] + + + + | BLOOD | [id number] | | [facility] | | | PRODUCT [...] | + + + + + | [facility] DEPARTMENT OF | [address] | [place] [address] | | | PATHOLOGY | [address] [...] + + + + | PRODUCT | [id number] | | [facility] | | | UNIT [...] + + + + | BLOOD | [id number] | | [facility] | | | PRODUCT [...] DEPARTMENT OF | [address] | [place] [address] | | | PATHOLOGY | [address] [...] + + + + | PRODUCT | [id number] | | [facility] | | | UNIT [...] + + + + | BLOOD | [id number] | | [facility] | | | PRODUCT [...] | + + + + + | [facility] DEPARTMENT OF | [address] | [place] [address] | | | PATHOLOGY | [address] [...] + + + + | PRODUCT | [id number] | | [facility] | | | UNIT [...] + + + + | BLOOD | [id number] | | [facility] | | | PRODUCT [...] | + + + + + | [facility] DEPARTMENT OF | [address] | [place] [address] | | | PATHOLOGY | [address] [...] + + + + | PRODUCT | [id number] | | [facility] | | | UNIT [...] + + + + | BLOOD | [id number] | | [facility] | | | PRODUCT [...] | + + + + + | [facility] | [address] | [place] [address] | | | PATHOLOGY | [address] [...] + + + + | PRODUCT | [id number] | | [facility] | | | UNIT [...] + + + + | BLOOD | [id number] | | [facility] | | | PRODUCT [...] [facility] | [address] | [place] [address] | | | PATHOLOGY | [address] [...] + + + + | PRODUCT | [id number] | | [facility] | | | UNIT [...] + + + + | BLOOD | [id number] | | [facility] | | | PRODUCT [...] | + + + + + | [facility] | [address] | [place] [address] | | | PATHOLOGY | [address] [...] + + + + | PRODUCT | [id number] | | [facility] | | | UNIT [...] + + + + | BLOOD | [id number] | | [facility] | | | PRODUCT [...] [facility] | [address] | [place] [address] | | | PATHOLOGY | [address] [...] + + + + | PRODUCT | [id number] | | [facility] | | | UNIT [...] + + + + | BLOOD | [id number] | | [facility] | | | PRODUCT [...] | + + + + + | [facility] | [address] | [place] [address] | | | PATHOLOGY | [address] [...] + + + + | PRODUCT | [id number] | | [facility] | | | UNIT [...] + + + + | BLOOD | [id number] | | [facility] | | | PRODUCT [...] [facility] | [address] | [place] [address] | | | PATHOLOGY | [address] [...] + + + + | PRODUCT | [id number] | | [facility] | | | UNIT [...] + + + + | BLOOD | [id number] | | [facility] | | | PRODUCT [...] | + + + + + | [facility] | [address] | [place] [address] | | | PATHOLOGY | [address] [...] + + + + | PRODUCT | [id number] | | [facility] | | | UNIT [...] + + + + | BLOOD | [id number] | | [facility] | | | PRODUCT [...] [facility] | [address] | [place] [address] | | | PATHOLOGY | [address] [...] + + + + | PRODUCT | [id number] | | [facility] | | | UNIT [...] + + + + | BLOOD | [id number] | | [facility] | | | PRODUCT [...] | + + + + + | [facility] DEPARTMENT OF | [address] | [place] [address] | | | PATHOLOGY | [address] [...] + + + + | PRODUCT | [id number] | | [facility] | | | UNIT [...] + + + + | BLOOD | [id number] | | [facility] | | | PRODUCT [...] [facility] | [address] | [place] [address] | | | PATHOLOGY | [address] [...] + + + + | PRODUCT | [id number] | | [facility] | | | UNIT [...] + + + + | BLOOD | [id number] | | [facility] | | | PRODUCT [...] | + + + + + | [facility] | [address] | [place] [address] | | | PATHOLOGY | [address] [...] [facility] | [address] | [place] [address] | | | SERVICES, CORE | PARK [...] [facility] | [address] | [place] [address] | | | SERVICES, CORE | PARK [...] most patients with mech. valves (2.5 | [facility], CORE | | - 3.5) INR APTT Therapeutic Range: | | | (75 - 120) sec Heparin levels of 0.35 - 0.7 U/mL | | + + + + + + + + | Performing | Address | City/State/Zipcode | Phone Number | | Organization | | | | + + + + + | [facility] | [address] | [place] [address] | | | JANELL SHARP | [address]AM [...] | | | LABORATORY | | | AUSTRIAN | | | SERVICES, | | | [...] [facility] | [address] | [place] [address] | | | SERVICES, CORE | PARK [...] [facility] | [address] | [place] [address] | | | SERVICES, CORE | PARK [...] [facility] | [address] | [place] [address] | | | SERVICES, CORE | PARK [...] | + + + + + | [facility] | [address] | [place] [address] | | | JANELL SHARP | BERTRAM [...] 89 | 60 - 99 mg/dL | [facility] - | | | [...] [facility] | [address] | [place], [place] | | | [facility] | [address] | [address] | | | TESTS | | | [...] | + + + + + | [facility] | [address] | [place] [address] | | | ARON, | [address] [...] | + + + + + | [facility] | [address] | [place] [address] | | | SERVICES, | [address] [...] + + + + | PRODUCT | [id number] | | [facility] | | | UNIT [...] + + + + | BLOOD | [id number] | | [facility] | | | PRODUCT [...] | + + + + + | [facility] | [address] | [place] [address] | | | PATHOLOGY | [address] [...] + + + + | PRODUCT | [id number] | | [facility] | | | UNIT [...] + + + + | BLOOD | [id number] | | [facility] | | | PRODUCT [...] DEPARTMENT OF | [address] | [place] [address] | | | PATHOLOGY | [address] [...] + + + + | PRODUCT | [id number] | | [facility] | | | UNIT [...] + + + + | BLOOD | [id number] | | [facility] | | | PRODUCT [...] | + + + + + | [facility] | [address] | [place] [address] | | | PATHOLOGY | [address] [...] + + + + | PRODUCT | [id number] | | [facility] | | | UNIT [...] + + + + | BLOOD | [id number] | | [facility] | | | PRODUCT [...] DEPARTMENT OF | [address] | [place] [address] | | | PATHOLOGY | [address] [...] + + + + | PRODUCT | [id number] | | [facility] | | | UNIT [...] + + + + | BLOOD | [id number] | | [facility] | | | PRODUCT [...] | + + + + + | [facility] | [address] | [place] [address] | | | PATHOLOGY | [address] [...] + + + + | PRODUCT | [id number] | | [facility] | | | UNIT [...] + + + + | BLOOD | [id number] | | [facility] | | | PRODUCT [...] OF | [address] | [place] [address] | | | PATHOLOGY | [address] [...]
--- OUTSIDE RECORDS SUMMARY | ~2019-02-11 | XMS | Encounter Summary ---
Demographics + + + | Address | [address] | | | [place] [address] | + + + | Home Phone [...] [place], [place] | | | | | [address] | | + + + + + | Cami Sawyer | ECON | Unknown | | + + + + + Care Team Providers + +------+ + | Care Music Specialist Name | Role | Phone | [...] | 2014 | Event | [facility] | [address] | | | | | Admitting Desk | [place], | | | | | Located on the | [place] [address] | | | | | floor [address] [facility] | [phone] | | | | | [address] | | | | | | [place], [place] | Rajiv Willingham MD | | | | | [address] | [facility] | | | | | | [facility] [address] [address] | | | | | | [facility] | | | | | | [place] [address] | | | | | | [phone] | | | | | | | [...] by | | D - | "port"); [facility]; 01/27/17 | Alberto London RN | Discontinued After | | [facility] | (Automatic cleanup per RA | | Discharge | | l Line | 3006--contact admin for | | | | | questions.); 1622 (Automatic | | | | | cleanup per RA 3006--contact | | | | | admin for questions.); Yes; Other | | | | | (comment) ([facility]); No; Left; | | | | | [...]
--- OUTSIDE RECORDS SUMMARY | ~2019-02-11 | XMS | Encounter Summary ---
Demographics + + + | Address | [address] | | | [place] [address] | + + + | Home Phone [...] [place], [place] | | | | | [address] | | + + + + + | Cami Sawyer | ECON | Unknown | | + + + + + Care Team Providers + +------+ + | Care Home Health Speech Therapist Name | Role | Phone | + [...] [address] | | | | | | [place], [place] | | | | | | [address] | | | +--------+ + + + [...]
--- OUTSIDE RECORDS SUMMARY | ~2019-02-11 | XMS | Encounter Summary ---
Demographics + + + | Address | [address] | | | [place] [address] | + + + | Home Phone [...] [place], [place] | | | | | [address] | | + + + + + | Cami Sawyer | ECON | Unknown | | + + + + + Care Team Providers + +------+ + | Care Vision Therapist Name | Role | Phone | [...] | | 2016 | | Center at [facility] [address] | [address] | | | | | [address] | [facility] | | | | | Mailcode: [place] | [place] [address] | | | | | [facility] and | [phone] | | | | | [address] [address] [address] | | | | | | [place], [place] | | | | | | [address] | | | | | | [phone] | | | +--------+ + + + [...]
--- OUTSIDE RECORDS SUMMARY | ~2019-02-11 | XMS | Encounter Summary ---
Demographics + + + | Address | [address] | | | [place] [address] | + + + | Home Phone | | + + + | Preferred Language | Unknown | + + + | Marital Status | | + + + | Jehovah'S Witness Affiliation | NRP | + + + | Race | White | + + + | Ethnic Group | Not or | + + + Author + + + | Author | [facility] | + + + | Organization | [facility] | + + [...] [place], [place] | | | | | [address] | | + + + + + | Cami Sawyer | ECON | Unknown | | + + + + + Care Team Providers + +------+ + | Care Contact Agent Name | Role | Phone | [...] 2015 | | Center at [facility] [address] | [address] | | | | | Tomasz Menezes | [facility] | | | | | Mailcode: [place] | [place] [address] | | | | | [facility] and | [phone] | | | | | [place] [address] | | | | | | [place], [place] | | | | | | [address] | | | | | | [phone] | | | +--------+ + + + [...]
--- OUTSIDE RECORDS SUMMARY | ~2019-02-11 | XMS | Encounter Summary ---
Demographics + + + | Address | [address] | | | [place] [address] | + + + | Home Phone [...] [place], [place] | | | | | [address] | | + + + + + | Cami Sawyer | ECON | Unknown | | + + + + + Care Team Providers + +------+ + | Care Fountain Clerk Name | Role | Phone | [...] Hospital | | | | | | [place], [place] | [place], [place] | | | | | | [address] | [address] | | | | | | Phone: | Phone: | | | | | | [phone] | [phone] | | | | | | Fax: | Fax: | | | | | | [phone] | [phone] | +--------+--------+ + + + + Diagnostic [...] | | | | | | | [place], [place] | | | | | | | [address] | | | | | | | Phone: | | | | | | | [phone] | | | | | | | Fax: | | | | | | | [phone] | +--------+--------+ + + + + Diagnostic [...] | | | | LOWER | Road [address], | [facility] | | | | | EXTREMITY | [place] [address] | Rd Mailcode: | | | | | BILAT | Phone: | [phone] | | | | | | [phone] | Physician's | | | | | | Fax: | Pavilion | | | | | | [phone] | [place], [place] | | | | | | | [address] | | | | | | | Phone: | | | | | | | [phone] | | | | | | | Fax: | | | | | | | [phone] | +--------+--------+ + + + + Diagnostic [...] | | | | | | | [place], [place] | | | | | | | [address] | | | | | | | Phone: | | | | | | | [phone] | | | | | | | Fax: | | | | | | | [phone] | +--------+--------+ + + + + Diagnostic [...] | | | Dariela Saab MD | [facility] [address] | | | | | [...] | | | | | | | [place], [place] | | | | | | | [address] | | | | | | | Phone: | | | | | | | [phone] | +--------+--------+ + + + + Diagnostic [...] DUPLEX | [address] | [address] [facility] | | | | | LOWER | [facility], | [facility] | | | | | EXTREMITY | [place] [address] | Rd Mailcode: | | | | | BILATERAL | Phone: | [phone] | | | | | COMPLETE | [phone] | Physician's | | | | | | Fax: | Pavilion | | | | | | [phone] | [place], [place] | | | | | | | [address] | | | | | | | Phone: | | | | | | | [phone] | | | | | | | Fax: | | | | | | | [phone] | +--------+--------+ + + + + Diagnostic [...] | | | | DUPLEX | Road [address], | [place] | | | | | COMPLETE | [place] [address] | Rd Mailcode: | | | | | BILATERAL | Phone: | [phone] | | | | | | [phone] | Physician's | | | | | | Fax: | Pavilion | | | | | | [phone] | [place], [place] | | | | | | | [address] | | | | | | | Phone: | | | | | | | [phone] | | | | | | | Fax: | | | | | | | [phone] | +--------+--------+ + + + + Diagnostic [...] | | | | | | | [place], [place] | | | | | | | [address] | | | | | | | Phone: | | | | | | | [phone] | | | | | | | Fax: | | | | | | | [phone] | +--------+--------+ + + + + Diagnostic [...] | | | | | | | [place], [place] | | | | | | | [address] | | | | | | | Phone: | | | | | | | [phone] | | | | | | | Fax: | | | | | | | [phone] | +--------+--------+ + + + + Reason [...] + + | 03/12/ | Hospital | [facility] [address] | [address], | | | 2011 - | Encounter | [address] | [address] | | | | | [address] [facility] | [facility] [place] | | | 04/01/ | | [place], [place] | [address] | | | 2011 | | [address] | [phone] | | | | | [phone] | | | | | | | Chary Doherty, | | | | | | [address] | | | | | | [address] | | | | | | [place], [place] | | | | | | [address] | | | | | | [phone] | | | | | | | | | | | | Xin Rust | | | | | | MD Nena [address] | | | | | | [facility] | | | | | | [place], [place] | | | | | | [address] | | | | | | [phone] | | | | | | | | | | | | Osbaldo Garcia MD | | | | | | [address] [place] | | | | | | [facility], | | | | | | [place] [address] | | | | | | [phone] | | | | | | | [...] Arterial thrombi: the patient was admitted to [facility] from [place] because she presented wit h nausea, bilious vomiting and was found by CT scan to have bowel wall thickening, 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 At arrival to [facility] it was learned that she did NOT indeed have ischemic colitis. 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 She underwent embolectomy on 03/17, which resulted in gnosticist of flow and no loss of tissue [...] was agreed that the patient needed a ferry terminal agent treatment and we settled o n remicade. 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 Go to the hospital on Tuesday [...] forming. Please call your GI doctor in [facility] to arrange for your second [...] whether or not the INR is truly education courses sales representative of anticoagulation. In patients with [...] Physician: RAPHAEL NORMAN MD Attending Physician: Kirit Ruts MD documented in th is encounter Medications [...] I NR on Tuesday. KIRIT MD YOCASTA [facility] DEPARTMENT: [id number]- [facility] PPV Place of Service:- Inpatient Date of Service: 04/01/2012 CSN: [id number] Suggested Modifier: GC Resident Involved: Yes Suggested CPT: 83627- Dishcarge < 30 min Electronically signed by [...] questions. Debi Oconnor MD GI/Hepatology Fellow Pager: [phone] INTERVAL HISTORY: MRI abdomen shows no abscess; [...] risk of emboli, I called Dr. Rodriges (compensation coordinator for her PCP) to coordinate f/u of [...] noted any additions above. KIRITMarisa RUST MD [facility] DEPARTMENT: [id number]- [facility] PPV Place of Service:- Inpatient Date of Service: 03/31/2012 CSN: [id number] Suggested Modifier: Resident Involved: Yes Suggested CPT: 70295- Subsequent, Detailed/high complex, 35 min Davonte De [...] state: J Gastroenterol. 2004 Jan;39(10):948-54. PubMed PMID: [id number]. Consulted [facility] for further studies on platelet [...] no insurance. Wanting to go home for [place]. Nurse repor ts that she has admitted [...] income that does not q ualify for tenXer. F/E/N Thrombosis ppx: Warfarin, Lovenox bridge Glucose: not indicated Diet: regular Code: Do Not Resuscitate/Do Not Intubate This patient was seen with GM3, refer to Attending and Resident notes for assessment and pl an. Nuñez [place], Sub-Fine Patcher Pgr: [phone] Ajay De La Rosa MD - 03/30/2012 [...] bridge after d/c until coumading therapeutic with cattle care worker through medication assistance program Hypoalbuminemia (03/14/2012) Assessment: [...] noted any additions above. KIRIT MD YOCASTA [facility] DEPARTMENT: [id number]- [facility] PPV Place of Service:- Inpatient Date of Service: 03/30/2012 CSN: [id number] Suggested Modifier: Resident Involved: Yes Suggested CPT: 92225- Subsequent, Detailed/high complex, 35 min Debi Yepez [...] follow closely Shaun [place] [phone] signed by Debi Oconnor MD at 03/30/2012 5:32 PM PSTJacoby Tovar MD - 03/30/2012 10:25 AM PSTFormatting of this note might be different from the origi nal. [facility] [place] DEPARTMENT OF SURGERY Daily Progress Note PROGRESS NOTE: Attending Physician: Xin Rust MD 03/31/2012 Subjective/Overnight Events: - latest CT shows resolution of abscess - no GI bleeding - no rectal/anal pain - tolerating reg diet MEDICATIONS: Reviewed in [facility] VITAL SIGNS: Refer to [facility] Intake/Output Summary (Last 24 hours) at 03/31/12 [...] concerns. Jacoby Tovar MD Surgery, R2 Diagnoses: [id number] Crohn disease This assessment and plan was [...] state: J Gastroenterol. 2004 Jan;39(10):948-54. PubMed PMID: [id number]. Consulted Heme for further studies on platelet [...] Nathan Weeks MD Internal Medicine PGY1 Pager [phone] tCecilia prado MD - 03/29/2012 6:37 PM [...] team. Debi Oconnor MD GI Fellow Pager [phone] signed by Debi Oconnor MD at 03/29/2012 [...] planning) Debi Oconnor MD Fellow, Gastroenterology pager: [phone] signed by Debi Oconnor MD at 03/29/2012 [...] note for this encounter. OSBALDO GARCIA MD [facility] [address] [facility] [address] [place], [place] [id number] Andrew Shah MD - 10:41 AM PST [facility] DEPARTMENT OF SURGERY Daily Progress Note PROGRESS NOTE: Attending Physician: Osbaldo Garcia MD 03/29/2012 Subjective/Overnight Events: - bowel prep initiated - Hct stable - no hematochezia or hemetemesis - MEDICATIONS: Reviewed in [facility] VITAL SIGNS: Refer to [facility] Intake/Output Summary (Last 24 hours) at 03/29/12 [...] GI Jacoby Tovar MD Surgery, R2 Diagnoses: [id number] Crohn disease This assessment and plan was [...] Osbaldo Mcfarlane MD - 03/29/2012 6:[facility] Author: OSBALDO GARCIA [...] myself provided conscious sedation. OSBALDO GARCIA MD [facility] [address] [place] [address] [place] [address] I spent 35 min in critical care (not including procedures) [facility] DEPARTMENT: MICU, [facility]- [id number] Place of Service: Date of Service: 03/29/2012 CSN: [id number] Modifiers:GC Resident Involved: yes Suggested CPT: 12714 Critical Care, Initial 30-74 minutes Carlton Godwin [...] day of transfer to MICU (1 05/29/11), [facility] surgery informed us that according to the [...] 0659 03/29/12 07 - 03/30/12 0659 Shift 0228-1330 9992-0984 9929-7901 Daily Total 9027-7706 4265-2003 2500-7888 Daily Total I N T A K E P.O. 1750 2525 4275 I.V. 934 6147 473 0088 Shift Total 934 3740 3450 8124 O U T P U T Urine 1075 2950 1875 5900 Urine 1075 2950 1875 5900 Other 575 973 507 2782 Measured Stool Output 350 425 775 Stool/Urine Mix 575 575 Shift Total 1650 3300 2300 7250 NET -467 367 5511 874 Intake/Output Summary (since admission) at 03/12/12 1910 Last data filed at 03/29/12 0547 Gross for the last 17 days Intake 28739 ml Output 91323 ml Net since Admission -64840 ml Physical Exam: General Appearance: middle aged [...] Carlton Betancourt DO PGY-1 Internal Medicine Pager [phone] Debi Yepez MD - 03/11 4:31 PM [...] questions. Debi Oconnor MD GI/Hepatology Fellow Pager: [phone] INTERVAL HISTORY: Episode of melena last night [...] patient in the past. OSBALDO GARCIA MD [facility] [address] [address] I spent 35 min in critical care (not including procedures) [facility]- [id number] Place of Service: Date of Service: 03/28/2012 CSN: [id number] Modifiers:GC Resident Involved: yes Suggested CPT: 33090 Critical Care, Initial 30-74 minutes Carlton Godwin [...] 03/28/12 0659 03/28/12699 - 03/29/12 0659 Shift 2024-4457 9883-9501 2795-5748 Daily Total 7262-8109 9434-7333 1475-6735 Daily Total I N T A K E P.O. 240 300 540 I.V. 404 404 934 934 Blood 1300 1300 Shift Total 293 030 7513 2244 934 934 O U T P [...] Gross for the last 16 days Intake 32487 ml Output 54772 ml Net since Admission -55060 ml Physical Exam: General Appearance: tearful middle [...] Carlton Betancourt DO PGY-1 Internal Medicine Pager [phone] Andrew Shah MD - 6:52 AM PST [...] MD at 03/28/2012 4:27 PM PSTLowayne , Gayal Patiño MD - 03/28/2012 6:52 AM PST [...] Sukumar Zuniga DO Internal Medicine PGY-2 Pg [phone] Davonte De La Rosa MD - 03/27/2012 [...] noted any additions above. KIRIT MD YOCASTA [facility] DEPARTMENT: [id number]- [facility] PPV Place of Service:- Inpatient Date of Service: 03/27/2012 CSN: [id number] Suggested Modifier: GC Resident Involved: Yes Suggested CPT: 78716- Subsequent, Detailed/high complex, 35 min Marely Mccann [...] was discussed and formulated with gastroenterology at [facility], Dr. Hennessy. Please call with any questions. Debi Oconnor MD GI/Hepatology Fellow Pager: [phone] INTERVAL HISTORY: Imaging reviewed with radiology; too [...] "questionable after living 7 years of hell". Parking Meter Installer team will follow as needed. Chaplain Dung Riley M.Div., [facility] [phone] Pager #[phone]; #[phone] Xin De La Rosa MD - 7:31 [...] J Gastroenterol. 2004 Jan;39(10):948-54. PubMed PMID: [id number]. Consulted Heme for further studies on platelet [...] an. ---- Joaquin Rivera, MS4 Pager # [phone] signed by Xin Rust MD at 03/27/2012 [...] noted any additions above. 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 Raphael Norman MD Internal Medicine, PGY-2 [id number] Xin De La Rosa MD - 03/25/2012 [...] not larger Resident spoke with vice president underwriting who spoke with staff - they did [...] taking more PO if still low ask narcotics agent to see Hypophosphatemia (03/14/2012) Assessment: rechecked and [...] noted any additions above. KIRIT MD YOCASTA [facility] DEPARTMENT: [id number]- [facility] PPV Place of Service:- Inpatient Date of Service: 03/25/2012 CSN: [id number] Suggested Modifier: GC Resident Involved: Yes Suggested CPT: 59706- Subsequent, Detailed/high complex, 35 min oaquin Rivera [...] J Gastroenterol. 2004 Jan;39(10):948- 54. PubMed PMID: [id number]. Consulted Heme for further studies on platelet [...] income that does not qualif y for tenXer F/E/N Thrombosis ppx: Warfarin Glucose: not indicated Diet: regular Code: Do Not Resuscitate/Do Not Intubate This patient was seen with GM3, refer to Attending and Resident notes for assessment and pl an. ---- Joaquin Nicole, MS4 Pager # [phone] Ajay De La Rosa MD - 03/24/2012 [...] noted any additions above. KIRIT RUST MD [facility] DEPARTMENT: [id number]- [facility] PPV Place of Service:- Inpatient Date of Service: 03/24/2012 CSN: [id number] Suggested Modifier: GC Resident Involved: Yes Suggested CPT: 51173- Subsequent, Detailed/high complex, 35 min Davonte De [...] 12 Patient:Mackenzie Hartley, Attending: Xin Rust MD Author:oJaquin Herron VIVIANA Rivera ID:Mackenzie Hartley is a [...] J Gastroenterol. 2004 Jan;39(10):948- 54. PubMed PMID: [id number]. Consulted Heme for further studies on platelet [...] an. ---- Joaquin Goodwinidad, MS4 Pager # [phone] Ajay De La Rosa MD - 03/23/2012 [...] noted any additions above. KIRITMarisa RUST MD [facility] DEPARTMENT: [id number]- [facility] PPV Place of Service:- Inpatient Date of Service: 03/23/2012 CSN: [id number] Suggested Modifier: AKHIL Resident Involved: Yes Suggested CPT: 26827- Subsequent, Detailed/high complex, 35 min Davonte De [...] to be done today JERI DIAZ MD [address] [facility] [address] [place] [address] Xin De La Rosa MD - 03/23/2012 [...] state: J Gastroenterol. 2004 Jan;39(10):948-54. PubMed PMID: [id number]. Consulted Heme for further studies on platelet [...] has income that does not qualify for tenXer F/E/N Thrombosis ppx: Warfarin Glucose: not indicated Diet: regular Code: Do Not Resuscitate/Do Not Intubate This patient was seen with GM3, refer to Attending and Resident notes for assessment and pl an. ---- Joaquin Rivera, MS4 Pager # [phone] Ajay De La Rosa MD - 03/22/2012 [...] noted any additions above. KIRITMarisa RUST MD [facility] DEPARTMENT: [id number]- [facility] PPV Place of Service:- Inpatient Date of Service: 03/22/2012 CSN: [id number] Suggested Modifier: Resident Involved: Yes Suggested CPT: 32206- Subsequent, Detailed/high complex, 35 min ox, Jeri [...] 360 mg, 360 mg, Oral, DAILY, Dariela Sanotyo MD, 360 mg at 03/22/12 0850 dextrose [...] carotid duplex ordered today JERI DIAZ MD [facility] [address] [facility] [address] [place] [address] Xin De La Rosa MD - 03/22/2012 [...] PTT in mixing 1:1 Neg cardiolipin, neg popx-S-xcvikmdkgcxn Legionella Agg Urine pending Cultures: BLOOD CULTURE [...] barber: J Gastroenterol. 2004 Jan;39(10):948-54. PubMed PMID: [id number]. - Consult Heme for further studies on [...] an. ---- Joaquin Rivera, 4 Pager # [phone] Ajay De La Rosa MD - 03/21/2012 [...] BP 142/76 | Pulse 106[sinus tach per telecasting engineer[ | Temp 37.7 C (99.9 F) [...] -- also coordination of care with pharmD. [facility] DEPARTMENT: [id number]- [facility] PPV Place of Service:- Inpatient Date of Service: 03/21/2012 CSN: [id number] Suggested Modifier: GC Resident Involved: Yes Suggested CPT: 97226- Subsequent, Detailed/high complex, 35 min Jennifer Tolentino [facility] - 03/21/2012 12:38 PM PST . [...] y.o. Female with multiple complex medical problems; [facility] Vascular Surge ry consulted due [...] as new baseline Ok to discharge per [facility] Vascular Surgeons once ambulating and medical issues are stable. Will continue to follow while in patient. [facility] Vascular Surgery Clinic, [facility] [address], phone number [phone] Please schedule followup appointment within 2-3 weeks of surgery for wound check. Dr. Sukumar Salgado, [facility] Vascular Surgery Attending. MERT OLIVA [facility] VASCULAR SURGERY [address] [place] [address] ham, Moses Asher MD - 03/21/2012 6:55 [...] w ill need to establish care with natural resource specialist so that further treatment options can be [...] assessment and plan. Moses Anthony MD Neurology Fine Patcher Pager [phone] oaquin Rivera - 02/2012 6:55 AM PST [...] an. ---- Joaquin Rivera, MS4 Pager # [phone] Xin De La Rosa M D - [...] noted any additions above. KIRIT MD YOCASTA [facility] DEPARTMENT: [id number]- [facility] PPV Place of Service:- Inpatient Date of Service: 03/20/2012 CSN: [id number] Suggested Modifier: Resident Involved: Yes Suggested CPT: 10856- Subsequent, Detailed/high complex, 35 min Jennifer Tolentino [...] y.o. Female with multiple complex medical problems; [facility] Vascular Surge ry consulted due [...] new blood-flow baseline Ok to discharge per [facility] Vascular Surgeons once ambulating and medical issues are stable. Will continue to follow while in patient. [facility] Vascular Surgery Clinic, [facility] [address], phone number [phone] Please schedule followup appointment within 2-3 weeks of surgery for wound check. Dr. Sukumar Salgado, [facility] Vascular Surgery Attending. MERT OLIVA [facility] VASCULAR SURGERY [address] [place] [phone] aphael Norman - 7:58 AM PSTI agree [...] plan. Raphael Norman MD Internal Medicine, PGY-2 60380 oaquin Rivera - 2011 7:58 AM PST Medicine Progress Note Refer to Attending and Resident Notes for Assessment and Plan Hospital Day # 8 Patient:Mackenzie Hartley, Attending: iXn Rust MD Author:Joaquin Rivera, MS4 ID:Mackenzie Hartley [...] an. ---- Joaquin Goodwinidad, MS4 Pager # [phone] Juma Pimentel MD - 12/2011 3:35 PM [...] warm and dry. Minimal edema. FARRUKH site [facility] no FARRUKH, c/d/i. Pulse/signal exam: RLE [...] record is Dr. Salgado. JUMA CARRINGTON MD [facility] [address] [facility] [address] [place] [address] Chary Moore M D - 03/19/2012 9:14 [...] note from 03/14 for details. Therefore the ljxn-eral-xtcmu plan givens s been to allow her [...] plan. Lovenox bridge to be covered by [facility]. 9) Occlusive thrombus 10) Hypoalbuminemia 11) Hypophosphatemia 12) TIA (transient ischemic attack) - with PFO 13) PFO (patent foramen ovale) - plan is for lifelong coumadin. No additional benefit from device closure per CLOSURE I trial. Chary Doherty MD Chief Resident, Internal Medicine Pager: [phone] [facility] DEPARTMENT: Hosp- [id number] Place of Service: Date of Service: 03/19/2012 CSN: [id number] Modifiers:GC Resident Involved: Yes Suggested CPT: 76705 Subsequent Visit Detailed/High complexity 35 min I [...] will need to establish c are with natural resource specialist so that further treatment options can be [...] assessment and plan. Moses Anthony MD Neurology Fine Patcher Pager [phone] Jose Antonio Baker MD - 03/18/2012 1:01 [...] Recorded LastCBG Intervention: Notified (Comment);Medication given (03/12/12 6386) Physical Exam Gen: Alert, NAD Extremities: moving [...] outpt GI, plans to establish care in [place], perhaps Dr. Byrd. Transitioning to PO meds, [...] Doherty MD Chief Resident, Internal Medicine Pager: [phone] [facility] DEPARTMENT: Hosp- [id number] Place of Service: Date of Service: 03/18/2012 CSN: [id number] Modifiers: Resident Involved: Yes Suggested CPT: 77031 Subsequent Visit Exp Prob Foc/Mod Complexity 25 min I have spent 30 minutes with the patient of which more than 50% was spent counseling Moses Jeffrey MD - 03/18/2012 9:18 AM PST General Internal Medicine 3 Progress Note Agree with excellent MS4 note by Jaoquin Rivera. Please see below for details of [...] Date 03/18/12 07 - 03/19/12 0659 Shift 1677-8929 8900-9633 0031-4591 24 Hour Total I N T A K E P.O. 620 620 I.V. 20 20 40 Shift Total 640 20 660 O U T P U T Urine 675 100 775 Other 400 400 Shift Total 066 477 7194 Weight (kg) 74.1 74.1 74.1 74.1 General: [...] refusing). Will need to establish care with natural resource specialist so that further treatment options can be [...] in MS4 note. Moses Anthony MD Neurology Fine Patcher Pager [phone] signed by Moses Asher MD at 03/18/2012 [...] an. ---- Nuñez Rivera, MS4 Pager # [phone] Chary Moore MD - 03/17/2012 8:39 PM [...] refusing). Will need to establish care with natural resource specialist so this can be discussed as outpt [...] Doherty MD Chief Resident, Internal Medicine Pager: [phone] [facility] DEPARTMENT: Hosp- [id number] Place of Service: - Date of Service: 03/17/2012 CSN: [id number] Modifiers:GC Resident Involved: Yes Suggested CPT: 33545 Subsequent Visit Detailed/High complexity 35 min I [...] at end of case. MIRELA SALGADO MD [facility] [address] [id number] [place] [id number] ham, Gloria Lawson MD - 1 05/18/2011 [...] therapeutic with her coumadin and [facility] has agreed to provide discounted INR [...] y Gloria Anthony MD Neurology PGY1 Pager: [phone] oaquin Rivera - 10/2011 7:19 AM PST [...] an. ---- Joaquin Rivera, MS4 Pager # [phone] Chary Moore MD - 03/16/2012 12:56 PM [...] Doherty MD Chief Resident, Internal Medicine Pager: [phone] [facility] DEPARTMENT: Hosp- [id number] Place of Service: - Date of Service: 03/16/2012 CSN: [id number] Modifiers: Resident Involved: Yes Suggested CPT: 11606 Subsequent Visit Exp Prob Foc/Mod Complexity 25 min and 99544 Subseque nt Visit Detailed/High complexity 35 min [...] DNR/DNI Gloria Anthony MD Neurology PGY-1 Pager [phone] The patient was seen and discussed with [...] Doherty MD Chief Resident, Internal Medicine Pager: [phone] [facility] DEPARTMENT: Hosp- [id number] Place of Service: Date of Service: 03/15/2012 CSN: [id number] Modifiers:GC Resident Involved: Yes Suggested CPT: 11709 Subsequent Visit Detailed/High complexity 35 min Dariela [...] plan. Dariela Santoyo MD Internal Medicine PGY-3 [phone] Daryl Singleton MD - 08/2011 7:18 PM PSTHematology Attending Consult Note: I saw and examined Ms. Hartley with the Hematology Fellow, Dr. Anthony Camejo and [facility] [place] the 5A Medicine unit. I participated in the gunter components of today's [facility] visit including review of the history, [...] re Daryl Arteaga MD, PhD Hematology Oncology [facility] DEPARTMENT: [id number] HEM FACULTY [facility] Place of Service: - Inpatient Date of Service: 03/15/2012 Modifiers: GC - Resident Involved Suggested CPT: 06965 - Subsequent, Detailed/High complex 35 min nthony [...] anticoagulation clinic f/u closely; our clinic at [facility] cannot provide any suppli es [...] as above. MD Hematology/Oncology Fellow Pager # [phone] signed by Daryl Arteaga MD at 03/15/2012 [...] with any questions. Bigg Robles, R1 Pager: [phone] INTERVAL HISTORY: - NAEO - VSS, AF [...] 2.8* 1.1* PO4 2.1* -- 1.1* 1.7* [facility] - 03/15/2012 2:12 PM PSTVascular [...] wishes to pro ceed. Mirela Samano M.D. [facility] Vascular Surgery [address] [place] [address], [place] [phone] Email: [email or web address] Sandoval Ko MD - 03/15/2012 [...] off to day. 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 Young with the Hematology Fellow, Dr. Anthony Camejo in the [address] [place] [address] unit. I participated in the gunter components [...] re Daryl Arteaga MD, PhD Hematology Oncology [facility] DEPARTMENT: [id number] HEM FACULTY [facility] Place of Service: - Inpatient Date of Service: 03/14/2012 Modifiers: GC - Resident Involved Suggested CPT: 97356 - Subsequent, Detailed/High complex 35 min nthony [...] as above. MD Hematology/Oncology Fellow Pager # [phone] signed by Daryl Arteaga MD at 03/14/2012 [...] for treatment Recommendations communicated with [employer] internal communications intern. We will continue to follow. This plan was discussed and formulated with gastroenterology at [facility], Dr. Casiano. Please call with any questions. Bigg Robles, R1 Pager: [phone] Attending Attestation: I personally interviewed the patient, [...] She may follow-up wit h her local natural resource specialist or may follow up with me at [facility] if she wishes to consider di fferent evaluation or treatment. Gopal Casiano MD Welfare Directorweb design intern Department of Gastroenterology INTERVAL HISTORY: - NAEO [...] IMAGING Reviewed outside imaging with radiologist at [facility] and CT abd and pelvis [...] Becca Moncada MD General Surgery, R2 Pager: [phone] [facility] Staff I saw and evaluated the patient. I agree with the findings and the plan of care as jannie hair in the resident s note. Left foot warm and well perfused. Patient pain-free. Will repe at CTA to see if there has been any thrombus progression. No urgent need for surgery on left leg at this point. Mirela Samano M.D. [facility] Vascular Surgery [address] [place] [address], [address] [phone] Email: [email or web address] Irene Aguilera MD - 03/14/2012 [...] OSH. 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 She also had leukocytosis to 45 with a left shift, anemia, and thrombocytosis (platelets to 759). Her abdominal exam was not acute and she remained hemodynamically stable. Transferre d to [facility] for possible thrombectomy, initiated heparin [...] were obscured by overlying bowel gas. The teo-vk-pndisz left external iliac arteries appear patent with [...] transient arterial occlusion. Reported CT findings at [facility] are also concerning for diffuse [...] Becca Moncada MD General Surgery, R2 Pager: [phone] Vascular Staff I saw and evaluated the [...] at a later time. Mirela Samano M.D. [facility] Vascular Surgery [address] [place] [address], [address] [phone] Email: [email or web address] Richie Goodman MD - 06/2011 11:15 AM PSTI was present and rounded with the REFINING ENGINEER today. I interviewed and examined the patient. I reviewed the history, as documented today. I agree with the REFINING ENGINEER's assessmen t and plan. Pt is stable [...] 75 Morphine IV PRN zofran PRN Labs: [facility] reviewed Significant Results K 3.3 Mg 2.8 [...] visceral and aortic thrombus transfer red from [place] last night with concerns for ischemic bowel. [...] and celiac arteries who was transferred to [facility] for management o f vascular disease and possible bowel ischemia. No evidence of bowel ischemia, bowel thicken ing likely Crohn's flare. 1. Crohn's flare: GI consult. Consider transfer to medicine for crohn's management with [facility] following 2. Multivessel occlusions/thrombii: vascular [...] general medicine service. Jf Wiseman MD FACS train announcer Division of Trauma, Critical Care, and Acute Care Surgery [id number] documented in this e ncounter Plan of [...] [facility] | [address] | [place] [address] | | | SERVICES, CORE | PARK [...] [facility] | [address] | [place] [address] | | | SERVICES, CORE | [address] | | | + + + + + INR (03/31/2012 3:58 AM PST) + +-------+ + + + | Component | Value | Ref Range | Performed | Pathologist | | | | | At | Signature | + +-------+ + + + | INR | 1.11 | 0.90 - 1.20 INR | [facility] | | | | | | LABORATORY [...] | + + + + + | [facility] | [address] | [place] [address] | | | SERVICES, CORE | PARK [...] | + + + + + | [facility] | [address] | [place] [address] | | | SERVICES, CORE | PARK [...] [facility] | [address] | [place] [address] | | | ARON, JANELL | PARK [...] | | + +---------+ + + | [facility] DEPARTMENT OF | | | [...] [facility] | [address] | [place] [address] | | | SERVICES, CORE | PARK [...] [facility] | [address] | [place] [address] | | | SERVICES, CORE | PARK [...] [facility] | [address] | [place] [address] | | | SERVICES, CORE | PARK [...] | + + + + + | [facility] | [address] | [place] [address] | | | SERVICES, CORE | PARK [...] | + + + + + | [facility] | [address] | [place] [address] | | | SERVICES, CORE | PARK [...] | + + + + + | [facility] | [address] | [place] [address] | | | SERVICES, CORE | PARK [...] [facility] | [address] | [place] [address] | | | ARON, JANELL | KRISTEN [...] + + + | [facility] | [address] | [place] [address] | | | SERVICESJANELL | [address] [...] + | [facility] - | [address] | [place] [address] | | | [place] | | | [...] | + + + + + | [facility] - | [address] | [place] [address] | | | [place] | | | | + + + [...] + | [facility] - | [address] | [place] [address] | | | [place] | | | [...] | + + + + + | [facility] | [address] | [place] [address] | | | SERVICES, CORE | PARK [...] | + + + + + | [facility] | [address] | [place] [address] | | | SERVICES, CORE | PARK [...] | + + + + + | [facility] | [address] | [place] [address] | | | SERVICES, CORE | PARK [...] | + + + + + | [facility] | [address] | [place] [address] | | | SERVICES, CORE | KRISTEN [...] [facility] | [address] | [place] [address] | | | PATHOLOGY | [address] [...] [facility] | [address] | [place] [address] | | | SERVICES, JANELL | KRISTEN [...] | + + + + + | [facility] | [address] | [place] [address] | | | SERVICES, CORE | KRISTEN [...] [facility] | [address] | [place], [place] | | | [facility] | [address] | [address] | | | TESTS | | | [...] [facility] | [address] | [place] [address] | | | SERVICES, CORE | PARK [...] [facility] | [address] | [place] [address] | | | SERVICES, CORE | PARK [...] | + + + + + | [facility] | [address] | [place] [address] | | | SERVICES, CORE | KRISTEN [...] [facility] | [address] | [place], [place] | | | [facility] | [address] | [address] | | | TESTS | | | [...] [facility] | [address] | [place] [address] | | | SERVICES, CORE | KRISTEN [...] [facility] | [address] | [place] [address] | | | SERVICES, CORE | KRISTEN [...] [facility] | [address] | [place] [address] | | | SERVICES, CORE | PARK [...] [facility] | [address] | [place] [address] | | | ARON, JANELL | KRISTEN [...] | | + +---------+ + + | [facility] DEPARTMENT OF | | | [...] + + + + | PRODUCT | [id number] | | [facility] | | | UNIT [...] + + + + | BLOOD | [id number] | | [facility] | | | PRODUCT [...] [facility] | [address] | [place] [address] | | | PATHOLOGY | [address] [...] + + + + | PRODUCT | [id number] | | [facility] | | | UNIT [...] + + + + | BLOOD | 72820 | | [facility] | | | PRODUCT [...] DEPARTMENT OF | [address] | [place] [address] | | | PATHOLOGY | [address] [...] (H) | 60 - 99 mg/dL | [facility] - | | | GLUCOSE, [...] [facility] | [address] | [place], [place] | | | [facility] [place] | [address] | [address] | | | TESTS | | | [...] | + + + + + | [facility] | [address] | [place] [address] | | | SERVICES, JANELL | KRISTEN [...] by | | | | | | RAHCEL MESSER ([id number]) on | | | | | | 04/01/2012 8:32:53 AM | | | | + + + + + + + + | Specimen | + + | | + + + + + | Narrative | Performed At | + + + | Please click | [facility] | | on view image for the detailed interpretation from Aston[facility] Results results. | CARDIOLOGY | + + + + + + + + | Performing | Address | City/State/Zipcode | Phone Number | | Organization | | | | + + + + + | [facility] | [address] | [place], [place] | | | CARDIOLOGY | [address] | [address] | | + + + + + [...] | + + + + + | [facility] | [address] | [place] [address] | | | SERVICES, CORE | PARK [...] + + + + | PRODUCT | [id number] | | [facility] | | | UNIT [...] + + + + | BLOOD | [id number] | | [facility] | | | PRODUCT [...] DEPARTMENT OF | [address] | [place] [address] | | | PATHOLOGY | [address] [...] + + + + | PRODUCT | [id number] | | [facility] | | | UNIT [...] + + + + | BLOOD | [id number] | | [facility] | | | PRODUCT [...] | + + + + + | [facility] DEPARTMENT | [address] | [place] [address] | | | PATHOLOGY | [address] [...] | + + + + + | [facility] | [address] | [place] [address] | | | SERVICESJANELL | [address] [...] [facility] | [address] | [place] [address] | | | SERVICES, CORE | KRISTEN [...] | + + + + + | [facility] | [address] | [place] [address] | | | SERVICES, CORE | PARK [...] [facility] | [address] | [place] [address] | | | SERVICES, CORE | PARK [...] [facility] | [address] | [place] [address] | | | SERVICES, | [address] [...] | + + + + + | [facility] | [address] | [place] [address] | | | SERVICES, | [address] [...] + + + + | PRODUCT | [id number] | | [facility] | | | UNIT [...] + + + + | BLOOD | 93370 | | [facility] | | | PRODUCT [...] | + + + + + | [facility] DEPARTMENT OF | [address] | [place] [address] | | | PATHOLOGY | [address] [...] + + + + | PRODUCT | [id number] | | [facility] | | | UNIT [...] + + + + | BLOOD | 47964 | | [facility] | | | PRODUCT [...] | + + + + + | [facility] DEPARTMENT | [address] | [place] [address] | | | PATHOLOGY | [address] [...] | + + + + + | [facility] | [address] | [place] [address] | | | SERVICES, CORE | KRISTEN [...] | + + + + + | [facility] | [address] | [place] [address] | | | SERVICES, CORE | KRISTEN [...] [facility] | [address] | [place] [address] | | | SERVICES, CORE | [address] [...] | + + + + + | [facility] | [address] | [place] [address] | | | JANELL SHARP | KRISTEN [...] [facility] | [address] | [place] [address] | | | SERVICES, CORE | KRISTEN [...] | + + + + + | [facility] | [address] | [place] [address] | | | SERVICES, CORE | P[address] [...] | + + + + + | [facility] | [address] | [place] [address] | | | SERVICES, CORE | KRISTEN [...] | + + + + + | [facility] | [address] | [place] [address] | | | SERVICES, CORE | KRISTEN [...] [facility] | [address] | [place] [address] | | | SERVICES, CORE | P[address] [...] | + + + + + | [facility] | [address] | [place] [address] | | | SERVICES, CORE | P[address] [...] | + + + + + | [facility] | [address] | [place] [address] | | | SERVICES, CORE | PARK [...] | + + + + + | [facility] | [address] | [place] [address] | | | SERVICES, CORE | P[address] [...] | + + + + + | [facility] | [address] | [place] [address] | | | SERVICES, CORE | KRISTEN [...] | + + + + + | [facility] | [address] | [place] [address] | | | SERVICES, CORE | PARK [...] | + + + + + | [facility] | [address] | [place] [address] | | | SERVICES, CORE | KRISTEN [...] oral, | | | | | | [id number] hrs | | | | | | [...] | + + + + + | [facility] | [address] | [place] [address] | | | SERVICES, CORE | PARK [...] | + + + + + | [facility] | [address] | [place] [address] | | | SERVICES, CORE | KRISTEN [...] [facility] | [address] | [place] [address] | | | ARON, JANELL | KRISTEN [...] | + + + + + | [facility] | [address] | [place] [address] | | | SERVICES, CORE | PARK [...] | + + + + + | [facility] | [address] | [place] [address] | | | SERVICES, CORE | KRISTEN [...] | | | | Final | | [place] | | | | CULTURE RESULT:< 10,000 [...] + | [facility] - | [address] | [place] [address] | | | [place] | | | | + + + [...] | + + + + + | [facility] | [address] | [place] [address] | | | SERVICES, CORE | KRISTEN [...] [facility] | [address] | [place] [address] | | | SERVICES, CORE | PARK [...] | + + + + + | [facility] | [address] | [place] [address] | | | SERVICES, CORE | [address] | | | + + + + + CULTURE, BLOOD BACTI & YEAST [facility] (03/23/2012 11:22 PM PST) + + [...] | + + + + + | [facility] | [address] | [place] [address] | | | SERVICES, CORE | KRISTEN [...] view image for the detailed interpretation from Astonish Results results. | CARDIOLOGY | + + + + + + + + | Performing | Address | City/State/Zipcode | Phone Number | | Organization | | | | + + + + + | [facility] | [address] | [place], [place] | | | CARDIOLOGY | [address] | [address] | | + + + + + [...] | | + +---------+ + + | [facility] DEPARTMENT OF | | | [...] | + + + + + | [facility] | [address] | [place] [address] | | | JANELL SHARP | KRISTEN [...] [facility] | [address] | [place] [address] | | | SERVICES, CORE | PARK [...] | + + + + + | [facility] | [address] | [place] [address] | | | SERVICESJANELL | [address] [...] | + + + + + | [facility] | [address] | [place] [address] | | | SERVICES, CORE | PARK [...] [facility] | | | | | | [facility], [facility],[address] [place] [address] | | | | | | [place] [address] | | | | | | [phone]. | | | | | | keith, [...] [facility] | [address] | [place], [place] | | | [facility] | | [address] | | + + + + + [...] | + + + + + | [facility] | [address] | [place] [address] | | | SERVICES, CORE | KRISTEN [...] [facility] | [address] | [place] [address] | | | JANELL SHARP | [address] | | | + + + + + CULTURE, BLOOD BACTI & YEAST [facility] (03/22/2012 7:08 PM PST) + + [...] | + + + + + | [facility] | [address] | [place] [address] | | | SERVICES, JANELL | KRISTEN [...] | | | | | XIN GARZON ([id number]) | | | | | | on 03/22/2012 4:25:06 PM | | | | + + + + + + + + | Specimen | + + | | + + + + + | Narrative | Performed At | + + + | Please click | [facility] DEPT OF | | on view image for the detailed interpretation from Astonish Results results. | CARDIOLOGY | + + + + + + + + | Performing | Address | City/State/Zipcode | Phone Number | | Organization | | | | + + + + + | [facility] | [address] | [place], [place] | | | CARDIOLOGY | [address] | [address] | | + + + + + [...] [facility] | [address] | [place], [place] | | | [facility] | [facility] | [address] | | | TESTS | | | [...] (H) | 60 - 99 mg/dL | [facility] - | | | GLUCOSE, [...] [facility] | [address] | [place], [place] | | | [facility] OF CARE | [address] | [address] | | | TESTS | | | [...] | + + + + + | [facility] | [address] | [place] [address] | | | SERVICES, CORE | KRISTEN [...] [facility] | [address] | [place] [address] | | | JANELL SHARP | [address] [...] | + + + + + | [facility] | [address] | [place] [address] | | | SERVICES, CORE | KRISTEN [...] [facility] | [address] | [place] [address] | | | SERVICES, CORE | [address] [...] | + + + + + | [facility] | [address] | [place] [address] | | | SERVICES, CORE | KRISTEN [...] [facility] | [address] | [place], [place] | | | [facility] POINT OF CARE | [address] | [address] | | | TESTS | | | [...] | + + + + + | [facility] | [address] | [place] [address] | | | SERVICES, CORE | PARK [...] [facility] | [address] | [place], [place] | | | [facility] [place] | [address] | [address] | | | TESTS | | | [...] view image for the detailed interpretation from Astonish Results results. | CARDIOLOGY | + + + + + + + + | Performing | Address | City/State/Zipcode | Phone Number | | Organization | | | | + + + + + | [facility] | [address] | [place], [place] | | | CARDIOLOGY | [address] | [address] | | + + + + + [...] + + + | [facility] | [address] | [place], [place] | | | [facility] | [address] | [address] | | | TESTS | | | [...] | + + + + + | [facility] | [address] | [place] [address] | | | JANELL SHARP | KRISTEN [...] [facility] | [address] | [place] [address] | | | SERVICES, CORE | KRISTEN [...] | + + + + + | [facility] | [address] | [place] [address] | | | SERVICES, CORE | [address] [...] | + + + + + | [facility] | [address] | [place] [address] | | | SERVICES, JANELL | KRISTEN [...] | + + + + + | [facility] | [address] | [place] [address] | | | SERVICES, CORE | [address] | | | + + + + + 12 LEAD ECG (03/21/2012 1:28 AM PST) + + + + + + | Component | Value | Ref Range | Performed | Pathologist | | | | | At | Signature | + + + + + + | VENTRICULAR | 107 | BPM | [facility] | | | RATE | | [...] GARCIA | | | | | | (4056) on 03/22/2012 | | | | | | 12:47:28 PM | | | | + + + + + + + + | Specimen | + + | | + + + + + | Narrative | Performed At | + + + | Please click | [facility] | | on view image for the detailed interpretation from Astonish Results results. | CARDIOLOGY | + + + + + + + + | Performing | Address | City/State/Zipcode | Phone Number | | Organization | | | | + + + + + | [facility] | [address] | [place], [place] | | | CARDIOLOGY | [address] | [address] | | + + + + + [...] | | + +---------+ + + | [facility] DEPARTMENT OF | | | [...] [facility] | [address] | [place] [address] | | | SERVICES, CORE | [address] [...] | + + + + + | [facility] | [address] | [place] [address] | | | SERVICES, CORE | PARK [...] 98 | 60 - 99 mg/dL | [facility] - | | | GLUCOSE, [...] [facility] | [address] | [place], [place] | | | [facility] [place] | [address] | [address] | | | TESTS | | | [...] + + + | Please click | [facility] | | on view image for the detailed interpretation from Astonish Results results. | CARDIOLOGY | + + + + + + + + | Performing | Address | City/State/Zipcode | Phone Number | | Organization | | | | + + + + + | [facility] | [address] | [place], [place] | | | CARDIOLOGY | [address] | [address] | | + + + + + [...] [facility] | [address] | [place], [place] | | | [facility] OF CARE | [address] | [address] | | | TESTS | | | [...] (H) | 60 - 99 mg/dL | [facility] - | | | GLUCOSE, [...] [facility] | [address] | [place], [place] | | | [facility] | [address] | [address] | | | TESTS | | | [...] | | + +---------+ + + | [facility] DEPARTMENT OF | | | [...] [facility] | [address] | [place] [address] | | | SERVICES, CORE | KRISTEN [...] | + + + + + | [facility] | [address] | [place] [address] | | | SERVICES, CORE | KRISTEN [...] (H) | 0.90 - 1.20 INR | [facility] | | | | | | [...] [facility] | [address] | [place] [address] | | | SERVICES, CORE | [address] [...] | + + + + + | [facility] | [address] | [place] [address] | | | SERVICES, CORE | KRISTEN [...] [facility] | [address] | [place], [place] | | | [facility] [place] | [address] | [address] | | | TESTS | | | [...] + | [facility] | [address] | [place], [place] | | | [facility] | [address] | [address] | | | TESTS | | | [...] | + + + + + | [facility] | [address] | [place] [address] | | | SERVICES, CORE | KRISTEN [...] | + + + + + | [facility] | [address] | [place] [address] | | | SERVICES, CORE | PARK [...] (H) | 60 - 99 mg/dL | RISU - | | | GLUCOSE, | | [...] [facility] | [address] | [place], [place] | | | [facility] | [address] | [address] | | | TESTS | | | [...] view image for the detailed interpretation from [facility] results. | CARDIOLOGY | + + + + + + + + | Performing | Address | City/State/Zipcode | Phone Number | | Organization | | | | + + + + + | [facility] | [address] | [place], [place] | | | CARDIOLOGY | [address] | [address] | | + + + + + [...] [facility] | [address] | [place], [place] | | | [facility] | [address] | [address] | | | TESTS | | | [...] | | + +---------+ + + | [facility] DEPARTMENT OF | | | [...] [facility] | [address] | [place], [place] | | | [facility] | [address] | [address] | | | TESTS | | | [...] | + + + + + | [facility] | [address] | [place] [address] | | | SERVICES, CORE | KRISTEN [...] | + + + + + | [facility] | [address] | [place] [address] | | | SERVICES, CORE | KRISTEN [...] | + + + + + | [facility] | [address] | [place] [address] | | | SERVICES, CORE | KRISTEN [...] + | [facility] LABORATORY | [address] | [place] [address] | | | JANELL SHARP | KRISTEN [...] | | | | Final | | [place] | | | | CULTURE RESULT:No growth [...] + | [facility] - | [address] | [place] [address] | | | [facility] | | | | + + [...] [facility] | [address] | [place] [address] | | | SERVICES, CORE [...] [facility] | [address] | [place] [address] | | | SERVICES, JANELL | PARK [...] [facility] | [address] | [place] [address] | | | SERVICES, CORE | [address] | | | + + + + + CULTURE, BLOOD BACTI & YEAST [facility] (03/19/2012 1:10 AM PST) + + [...] | + + + + + | [facility] | [address] | [place] [address] | | | SERVICES, CORE | KRISTEN [...] | + + + + + | [facility] | [address] | [place] [address] | | | SERVICES, CORE | KRISTEN [...] (H) | 60 - 99 mg/dL | [facility] - | | | GLUCOSE, [...] SANDERS | [address] | [place], [place] | | | OSCAR POINT OF CARE | [address] | [address] | | | TESTS | | | [...] | + + + + + | [facility] | [address] | [place] [address] | | | ARON, JANELL | KRISTEN [...] [facility] | [address] | [place], [place] | | | [facility] | [facility] | [address] | | | TESTS | | | [...] [facility] | [address] | [place] [address] | | | SERVICES, CORE | PARK [...] | + + + + + | [facility] | [address] | [place] [address] | | | SERVICES, CORE | KRISTEN [...] DAVID[facility] | [address] | [place], [place] | | | OSCAR POINT OF CARE | [address] | [address] | | | TESTS | | | | + + + + + OPERATION RECORD (03/18/2012 11:22 AM PST) + + | Transcriptions | + + | Mirela Salgado MD - 03/18/2012 8:38 AM [facility] Date: 03/17/2012ttending | | Surgeon: Mirela Salgado M.D.Clinical Trials Data Coordinator(s): Sandoval | | Bennett Galvez M.D.Preoperative Diagnosis(es):Embolus, [...] | | tolerated the procedure well.MIRELA SALGADO, [facility] Hospitalessor of [facility] / [id number] / | | [id number] / [id number] / T: 03/17/2012 | |was no pulse. [...] | | | |MIRELA SALGADO MD | |operations professional | | | |GLM / HS | |[id number] / [id number] / [id number] / | | | | | + [...] [facility] | [address] | [place] [address] | | | SERVICES, CORE | PARK [...] [facility] | [address] | [place] [address] | | | SERVICES, CORE | PARK [...] | + + + + + | [facility] | [address] | [place] [address] | | | SERVICES, CORE | PARK [...] | + + + + + | [facility] | [address] | [place] [address] | | | SERVICES, CORE | KRISTEN [...] | + + + + + | [facility] | [address] | [place] [address] | | | SERVICES, CORE | KRISTEN [...] | + + + + + | [facility] | [address] | [place] [address] | | | SERVICES, CORE | PARK [...] + | [facility] | [address] | [place] [address] | | | JANELL SHARP | PARK [...] [facility] | [address] | [place], [place] | | | HILL, POINT OF CARE | [address] | [address] | | | TESTS | | | [...] [facility] | [address] | [place], [place] | | | [facility] | [facility] | [address] | | | TESTS | | | [...] SANDERS | [address] | [place], [place] | | | [facility] | [address] | [address] | | | TESTS | | | [...] | + + + + + | [facility] | [address] | [place] [address] | | | SERVICES, CORE | KRISTEN [...] | + + + + + | [facility] | [address] | [place] [address] | | | ARON, CORE | KRISTEN [...] | + + + + + | [facility] | [address] | [place] [address] | | | SERVICES, [facility] | [address] | | | [...] | + + + + + | [facility] | [address] | [place] [address] | | | SERVICES, CORE | KRISTEN [...] (H) | 60 - 99 mg/dL | [facility] - | | | GLUCOSE, [...] SANDERS | [address] | [place], [place] | | | [facility] | [address] | [address] | | | TESTS | | | [...] [facility] | [address] | [place] [address] | | | SERVICES, | [address] [...] [facility] | [address] | [place] [address] | | | SERVICES, | [address] [...] | + + + + + | [facility] | [address] | [place] [address] | | | SERVICES, CORE | KRISTEN [...] MARILYN | [address] | [place], [place] | | | [facility] | [facility] | [address] | | | TESTS | | | [...] | | + +---------+ + + | [facility] DEPARTMENT OF | | | [...] (H) | 60 - 99 mg/dL | [facility] - | | | GLUCOSE, [...] SANDERS | [address] | [place], [place] | | | [facility] | [facility] | [address] | | | TESTS | | | [...] DAVIDAM | [address] | [place], [place] | | | [facility] | [address] | [address] | | | TESTS | | | [...] | + + + + + | [facility] | [address] | [place] [address] | | | SERVICES, CORE | KRISTEN [...] MARILYN | [address] | [place], [place] | | | [facility] | [address] | [address] | | | TESTS | | | [...] | + + + + + | [facility] | [address] | [place] [address] | | | SERVICES, CORE | PARK [...] | + + + + + | [facility] | [address] | [place] [address] | | | SERVICES, CORE | PARK [...] [facility] | [address] | [place] [address] | | | SERVICES, CORE | PARK [...] [facility] | [address] | [place] [address] | | | JANELL SHARP | PARK [...] - MAR[facility] | [address] | [place], [place] | | | PE[facility] MOORE OF CARE | [address] | [address] | | | TESTS | | | [...] (H) | 60 - 99 mg/dL | [facility] - | | | GLUCOSE, [...] SANDERS | [address] | [place], [place] | | | [facility] | [address] | [address] | | | TESTS | | | [...] | | + +---------+ + + | [facility] DEPARTMENT OF | | | [...] Kirstie | | | | | | [place] | | | | + + + [...] DAVIDAM | [address] | [place], [place] | | | [facility] | [address] | [address] | | | TESTS | | | [...] SANDERS | [address] | [place], [place] | | | [facility] | [facility] | [address] | | | TESTS | | | [...] | Performing | Address | City/State/Unm Children'S Hospitalcode | Phone Number | | Organization | | | | + + + + + | [facility] | [address] | [place] [address] | | | SPECIAL ARON | KRISTEN [...] [facility] | [address] | [place] [address] | | | SERVICES, SPECIAL | PARK [...] | + + + + + | [facility] | [address] | [place] [address] | | | SERVICES, SPECIAL | PARK [...] | + + + + + | [facility] | [address] | [place] [address] | | | SERVICES, SPECIAL | KRISTEN [...] | + + + + + | [facility] | [address] | [place] [address] | | | SERVICES, CORE | KRISTEN [...] | + + + + + | [facility] | [address] | [place] [address] | | | SERVICES, CORE | KRISTEN [...] [facility] | [address] | [place] [address] | | | SERVICES, CORE | PARK [...] | + + + + + | [facility] | [address] | [place] [address] | | | SERVICES, JANELL | KRISTEN [...] SANDERS | [address] | [place], [place] | | | [facility] | [facility] | [address] | | | TESTS | | | [...] | + + + + + | [facility] | [address] | [place] [address] | | | SERVICES, CORE | PARK [...] - MARQU[facility] | [address] | [place], [place] | | | [facility] | [facility] | [address] | | | TESTS | | | [...] (H) | 60 - 99 mg/dL | [facility] - | | | GLUCOSE, [...] + + + | [facility] | [address] | [place], [place] | | | [facility] | [address] | [address] | | | TESTS | | | [...] Davina | | | | | | [place] | | | | + + + [...] MARILYN | [address] | [place], [place] | | | [facility] | [address] | [address] | | | TESTS | | | [...] + + + + | PRODUCT | [id number] | | [facility] | | | UNIT [...] + + + + | BLOOD | [id number] | | [facility] | | | PRODUCT [...] | + + + + + | [facility] DEPARTMENT OF | [address] | [place] [address] | | | PATHOLOGY | [address] [...] + + + + | PRODUCT | [id number] | | [facility] | | | UNIT [...] + + + + | BLOOD | 79055 | | [facility] | | | PRODUCT [...] OH DEPARTMENT | [address] | [place] [address] | | | PATHOLOGY | [address] [...] | + + + + + | [facility] | [address] | [place] [address] | | | SERVICES, CORE | KRISTEN [...] (H) | 60 - 99 mg/dL | [facility] - | | | GLUCOSE, [...] SANDERS | [address] | [place], [place] | | | [facility] | [address] | [address] | | | TESTS | | | [...] [facility] | [address] | [place], [place] | | | OSCAR POINT OF CARE | [address] | [address] | | | TESTS | | | [...] [facility] | [address] | [place] [address] | | | SERVICES, CORE | PARK [...] | + + + + + | [facility] | [address] | [place] [address] | | | SERVICES, CORE | KRISTEN [...] | + + + + + | [facility] | [address] | [place] [address] | | | SERVICES, CORE | KRISTEN [...] if | | | | | | [id number] >400: | | | | | | [...] | + + + + + | [facility] - | [address] | [place] [address] | | | [place] | | | [...] | + + + + + | [facility] | [address] | [place] [address] | | | SERVICES, CORE | PARK [...] [facility] | [address] | [place] [address] | | | SERVICES, CORE | PARK [...] | + + + + + | [facility] | [address] | [place] [address] | | | SERVICES, CORE | KRISTEN [...] + | [facility] - | [address] | [place] [address] | | | [place] | | | [...] MARILYN | [address] | [place] | | | [facility] | [address] | [address] | | | TESTS | | | [...] [facility] | [address] | [place] [address] | | | SERVICES, CORE | PARK [...] | + + + + + | [facility] | [address] | [place] [address] | | | SERVICES, CORE | KRISTEN [...] 98 | 60 - 99 mg/dL | [facility] - | | | GLUCOSE, [...] SANDERS | [address] | [place], [place] | | | OSCAR POINT OF CARE | [address] | [address] | | | TESTS | | | [...] | + + + + + | [facility] | [address] | [place] [address] | | | SERVICES, CORE | KRISTEN [...] gas. | | | | | | [id number]-uq-hgueny left | | | | | | [...] Davina | | | | | | [place] | | | | + + + [...] | | + +---------+ + + | [facility] DEPARTMENT OF | | | [...] - [facility] | [address] | [place], [place] | | | [facility] | [facility] | [address] | | | TESTS | | | [...] % | [facility] | | | | [employer],[address] | | REG UNIV | | | | Jarett Card, [facility] | | [facility] - [facility] | | | | [phone] | | | | | | [phone][employer]. | | | | | | Kaitlin [...] [facility] | [address] | [place], [place] | | | UNIV PTH - INTFC | | [phone] | | + + + + + [...] | + + + + + | [facility] | [address] | [place] [address] | | | SERVICES, CORE | PARK [...] [facility] | [address] | [place] [address] | | | JANELL SHARP | PARK [...] - MARILYN | [address] | [place], [place] | | | OSCAR POINT OF CARE | [address] | [address] | | | TESTS | | | [...] [facility] | [address] | [place] [address] | | | SERVICES, CORE | PARK [...] | + + + + + | [facility] | [address] | [place] [address] | | | SERVICES, CORE | KRISTEN [...] [facility] | [address] | [place], [place] | | | [facility] | [address] | [address] | | | TESTS | | | [...] [facility] | [address] | [place] [address] | | | JANELL SHARP | KRISTEN [...] [facility] | [address] | [place] [address] | | | SERVICES, CORE | PARK [...] | + + + + + | [facility] | [address] | [place] [address] | | | JANELL SHARP | KRISTEN [...] | + + + + + | [facility] | [address] | [place] [address] | | | SERVICES, CORE | [address] | | | + + + + + MAGNESIUM, PLASMA (03/13/2012 3:42 AM PST) + +---------+ + + + | Component | Value | Ref Range | Performed | Pathologist | | | | | At | Signature | + +---------+ + + + | MAGNESIUM,P | 2.8 (H) | 1.8 - 2.5 mg/dL | [facility] | | | J[facility] | | | [...] | + + + + + | [facility] | [address] | [place] [address] | | | SERVICES, CORE | KRISTEN [...] [facility] | [address] | [place] [address] | | | SERVICES, CORE | PARK [...] | | | | Final | | [place] | | | | CULTURE RESULT:No growth [...] + | [facility] - | [address] | [place] [address] | | | [place] | | | [...] | | | Final CULTURE | | [place] | | | | RESULT:Salmonella, | | [...] + | [facility] - | [address] | [place] [address] | | | [facility] | | | | + + [...] | + + + + + | [facility] | [address] | [place] [address] | | | SERVICES, CORE | KRISTEN [...] [facility] | [address] | [place], [place] | | | [facility] | [address] | [address] | | | TESTS | | | [...] view image for the detailed interpretation from [employer] results. | CARDIOLOGY | + + + + + + + + | Performing | Address | City/State/Zipcode | Phone Number | | Organization | | | | + + + + + | [facility] | [address] | [place], [place] | | | CARDIOLOGY | [address] | [address] | | + + + + + [...] | | + +---------+ + + | [facility] DEPARTMENT OF | | | [...] [facility] | [address] | [place] [address] | | | SERVICES, CORE | KRISTEN [...] + | [facility] | [address] | [place] [address] | | | SERVICES, CORE | [address] | | | + + + + + COAGULOPATHY PANEL (INR,APTT,FIBRINOGEN) (03/12/2012 8:06 PM PST) + +---------+ + + + | Component | Value | Ref Range | Performed | Pathologist | | | | | At | Signature | + +---------+ + + + | INR | 1.17 | 0.90 - 1.20 INR | [facility] | | | | | | LABORATORY [...] | + + + + + | [facility] | [address] | [place] [address] | | | SERVICES, CORE | KRISTEN [...] | + + + + + | [facility] | [address] | [place] [address] | | | SERVICES, JANELL | KRISTEN [...] (H) | 60 - 99 mg/dL | [facility] - | | | GLUCOSE, [...] SANDERS | [address] | [place], [place] | | | [facility]SC[facility] POINT OF CARE | [address] | [address] | | | TESTS | | | [...] [facility] | [address] | [place] [address] | | | SERVICES, CORE | PARK [...] [facility] | [address] | [place] [address] | | | SERVICES, CORE | PARK [...] | + + + + + | [facility] | [address] | [place] [address] | | | SERVICES, | [address] [...] [facility] | [address] | [place] [address] | | | SERVICES, | [address] [...] [facility] | [address] | [place] [address] | | | SERVICES, JANELL | KRISTEN [...] [facility] | [address] | [place] [address] | | | SERVICES, CORE | PARK [...] | + + + + + | [facility] | [address] | [place] [address] | | | SERVICES, CORE | KRISTEN [...] | | | First dose on [facility] 03/30/12 at | | | | | [...] | | | First dose on [facility] 03/23/12 at | | | | | [...] PST | | | | | dose, [facility] 03/15/12 at 1415 | | | | [...] | | Hours, ONCE, 1 dose, [facility] 03/16/12 | | | | | | [...] | | | | | 1 dose, [facility] 03/21/12 at 1515 | | PM PST [...] | | | | 1115, Until [facility] 03/30/12 at 1055, | | | | [...] | | | | 0840, Until [facility] 03/30/12 at 1057, | | | | [...] | | | oral, ONCE, 1 dose, [facility] 03/25/12 | | AM PST [...] | | oral, ONCE, 1 dose, [facility] 03/30/12 | | PM PST | | | | | at 1100 | | | | | | + +-------+ +--------+---+---+ +---+---+ | | | +---+---+ + +-------+ +--------+---+---+ | potassium chloride (aka | Given | 03/17/20 | 40 mEq | | | | KLOR-CON) packet 40 mEq 40 mEq, | | 12 6:23 | | | | | oral, ONCE, 1 dose, [facility] 03/17/12 | | PM PST | | [...] | | | | NEEDED, Starting [facility] 03/16/12 at | | | | | [...] | | | First dose on [facility] 03/30/12 at | | PM PST | [...] | | | | modification) on [facility] 03/23/12 at | | | | | [...]
--- OUTSIDE RECORDS SUMMARY | ~2019-02-11 | XMS | Encounter Summary ---
Demographics + + + | Address | [address] | | | [place] [address] | + + + | Home Phone | | + + + | Preferred Language | Unknown | + + + | Marital Status | | + + + | Jain Affiliation | NRP | + + + [...] [place], [place] | | | | | [address] | | + + + + + | Cami Sawyer | ECON | Unknown | | + + + + + Care Team Providers + +------+ + | Care Restrictive Preparation Operator Name | Role | Phone | [...] | 2011 | Encounter | [address] [facility] | | | | | | [facility] | | | | | | [facility] | | | | | | [place], [place] | | | | | | [address] | | | | | | [phone] | | | +--------+ + + + [...]
--- OUTSIDE RECORDS SUMMARY | ~2019-02-11 | XMS | Encounter Summary ---
Demographics + + + | Address | [address] | | | [place] [address] | + + + | Home Phone | | + + + | Preferred Language | Unknown | + + + | Marital Status | | + + + | Denominational Affiliation | NRP | + + + | Race | White | + + + | Ethnic Group | Not or | + + + Author + + + | Author | [facility] | + + + | Organization | [facility] | + + + | Address | Unknown | + + + | Phone | Unavailable | + + + Support + + + + + | Name | Relationship | Address | Phone | + + + + + | Kole Willingham | [place] | [address] | | | | | [place], [place] | | | | | [address] | | + + + + + | Cami Sawyer | ECON | Unknown | | + + + + + Care Team Providers + +------+ + | Care Decision Analyst Name | Role | Phone | [...] | | 2016 | | Center at [facility] [address] | [address] | | | | | [address] | [facility] | | | | | Mailcode: [place] | [place] [address] | | | | | [facility] and | [phone] | | | | | [place] [address] | | | | | | [place], [place] | | | | | | [address] | | | | | | [phone] | | | +--------+ + + + [...]
--- OUTSIDE RECORDS SUMMARY | ~2019-02-11 | XMS | Encounter Summary ---
Demographics + + + | Address | [address] | | | [place] [address] | + + + | Home Phone [...] [place], [place] | | | | | [address] | | + + + + + | Cami Sawyer | ECON | Unknown | | + + + + + Care Team Providers + +------+ + | Care Department Of Natural Resources Officer Name | Role | Phone | [...] | | | 2011 | Event | [facility] | [address] | | | | | Admitting Desk | [address] | | | | | Located on the [address] | [place], [place] | | | | | floor [address] | [address] | | | | | [address] | [phone] | | | | | [place], [place] | | | | | | [address] | Bigg Smalls MD | | | | | | [address] | | | | | | [address] | | | | | | [facility] [place] | | | | | | [address] | | | | | | [phone] | | | | | | | [...] | Froylan Vázquez CRNA 15 min. Break 3078-9349 | | | 9 | | | [...] Smith RN | | Tanvi | | BOOKKEEPING TEACHER | | | y Cath | | [...] Cole RN | | Periph | | BOOKKEEPING TEACHER | | | eral | | | [...]
--- OUTSIDE RECORDS SUMMARY | ~2019-02-11 | XMS | Encounter Summary ---
Demographics + + + | Address | [address] | | | [place] [address] | + + + | Home Phone | | + + + | Preferred Language | Unknown | + + + | Marital Status | | + + + | Shinto Affiliation | NRP | + + + [...] [place], [place] | | | | | [address] | | + + + + + | Cami Sawyer | ECON | Unknown | | + + + + + Care Team Providers + +------+ + | Care Pharmaceutical Worker Name | Role | Phone | [...] | 2011 | Only | [address] [facility] | [phone] | | | | | [address] | | | | | | [place], [place] | | | | | | [address] | | | +--------+ + + + [...] DEPT OF | [address] | [place], [place] | | | CARDIOLOGY | [address] | [address] | | + + + + + documented in this encounter Visit Diagnoses Not on filedocumented in this encounter"
--- OUTSIDE RECORDS SUMMARY | ~2019-02-11 | XMS | Encounter Summary ---
Demographics + + + | Address | [address] | | | [place] [address] | + + + | Home Phone | | + + + | Preferred Language | Unknown | + + + | Marital Status | | + + + | Anabaptist Affiliation | NRP | + + + | Race | White | + + + | Ethnic Group | Not or | + + + Author + + + | Author | [facility] | + + + | Organization | [facility] | + + + | Address | Unknown | + + + | Phone | Unavailable | + + + Support + + + + + | Name | Relationship | Address | Phone | + + + + + | Kole Hartley | LAMONT | [address] | | | | | [place], [place] | | | | | [address] | | + + + + + | Cami Sawyer | ECON | Unknown | | + + + + + Care Team Providers + +------+ + | Care Barrel Rifler Hook Name | Role | Phone | + [...] [address] | | | | | [place], [place] | [address] | | | 05/13/ | | | [place], [place] | | | 2014 | | [phone] | [address] | | | | | | [phone] | | | | | | | | | | | | Jf Wiseman MD | | | | | | [address] | | | | | | [address] | | | | | | [place], [place] | | | | | | [address] | | | | | | [phone] | | | | | | | [...] original. [facility] DEPARTMENT [...] and [facility] care. Mackenzie Hartley is discharged in [...] 100mls three times a day. 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 S he [...] thrombosis while anticoagulated with warfarin transferred to [facility] from [facility] for management of retroperitoneal bleed. She is [...] know if she wants to see the [facility] GI team - Stage I [...] recommending V[facility]RA since would be close to [facility] and she would benefit for [...] with complication 03/12/2012 Jean-Claude Albrecht D.M.D., M.D. [facility] [address] [facility] [place] [address] This assessment and plan was formulated both [...] MD - 05/11/2014 8:51 AM PST . 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 S he [...] thrombosis while anticoagulated with warfarin transferred to [facility] from [facility] for management of retroperitoneal bleed. She is [...] know if she wants to see the [facility] GI team - Stage I [...] recommending [facility] since would be close to [facility] and she would benefit for [...] with complication 03/12/2012 Jean-Claude Albrecht D.M.D., M.D. [facility] [address] [facility] [place] [address] This assessment and plan was formulated both [...] active. Pt's has been at the [facility] supporting her. Pt is not religion but appreciates support. Intervention: Provided a listening presence and explored pt's anxieties, worries and hopes. Plan: Spiritual care remains available. 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 S he [...] thrombosis while anticoagulated with warfarin transferred to [facility] from [facility] for management of retroperitoneal bleed. She is [...] know if she wants to see the [facility] GI team - Stage I [...] recommending [facility] since would be close to [facility] and she would benefit for [...] intestine with complication 03/12/2012 ANDREW VINCENT MD [facility] [address] [place] [address] This assessment and plan was [...] be different from the orig [facility]. 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 S he [...] thrombosis while anticoagulated with warfarin transferred to [facility] from [facility] for management of retroperitoneal bleed. She is [...] know if she wants to see the [facility] GI team - Stage I [...] recommending [facility] since would be close to [facility] and she would benefit for [...] intestine with complication 03/12/2012 ANDREW VINCENT MD [facility] [address] [place] [address] This assessment and plan was [...] might be different from the orig inal. 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 S he [...] TROPONIN Imaging No new Cultures BLOOD CULTURE [facility] (no units) Date Value Range [...] thrombosis while anticoagulated with warfarin transferred to [facility] from [facility] for management of retroperitoneal bleed. She is [...] know if she wants to see the [facility] GI team - Stage I [...] recommending SONIAA since would be close to [facility] and she would benefit for [...] intestine with complication 03/12/2012 ANDREW VINCENT MD [facility] [address] [facility] [place] [address] This assessment and plan was formulated [...] while anticoagulated with warfar in transferred to [facility] from [facility] for management of retroperitoneal bleed. S he [...] TROPONIN Imaging No new Cultures BLOOD CULTURE [facility] (no units) Date Value Range [...] thrombosis while anticoagulated with warfarin transferred to [facility] from [facility] for management of retroperitoneal bleed. She is [...] intestine with complication 03/12/2012 ANDREW VINCENT MD [facility] [address] [place] [address] This assessment and plan was formulated both [...] be different from the orig [facility]. 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 S he [...] TROPONIN Imaging No new Cultures BLOOD CULTURE [facility] (no units) Date Value Range [...] thrombosis while anticoagulated with warfarin transferred to [facility] from [facility] for management of retroperitoneal bleed. She is [...] continued DHT,TF - Diet: NPO - per COMMUNITY EDUCATOR, high risk of aspiration - continue ice [...] intestine with complication 03/12/2012 ANDREW VINCENT MD [facility] [address] [place] [address] This assessment and plan was formulated both [...] might be different from the orig inal. 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 S he [...] TROPONIN Imaging No new Cultures BLOOD CULTURE [facility] (no units) Date Value Range [...] thrombosis while anticoagulated with warfarin transferred to [facility] from [facility] for management of retroperitoneal bleed. She is [...] intestine with complication 03/12/2012 ANDREW VINCENT MD [facility] [address] [place] [address] This assessment and plan was [...] the resident s note. PHIL VARMA MD [facility] [address] [facility] [place] [address] Rosa Sauer MD - 05/04/2014 8:26 AM [...] She was transferred to [facility] f or active hemorrhage and underwent IR [...] rounds. Rosa Reynoso, R2 SICU/Trauma Personal pager: [phone] Team pager: [phone] Angeles Acevedo MD - 05/04/2014 7:08 AM PST [facility] DEPARTMENT OF SURGERY EGS ICU Progress Note Division of Trauma and Critical Care ID: Mackenzie Hartley is a 58 year old female with COPD, Crohn's disease, chronic pain, and 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 while anticoagulated with warfarin transferre d to [facility] from [facility] for management of retroperitoneal bleed. She is [...] 500 mg, 500 mg, feeding tube, BID, fJ Wiseman MD, 500 mg at 04/12 bisacodyl [...] thrombosis while anticoagulated with warfarin transferred to [facility] from [facility] for management of retroperitoneal bleed. She has required repeated transfers to ICU for respiratory status. She has been diuresed ap propriately while in the ICU and O2 needs have decreased significantly. Will transfer to [facility] or, but need to keep a close [...] mg daily. Dispo: transfer to [facility] today Agneles Hannah MD General Surgery Resident, R3 Pager [phone] [facility] [place] [address] [facility] [address] Jf Jones MD - 05/03/2014 9:38 AM [...] - TF at goal, + BM Dysphagia: COMMUNITY EDUCATOR following- remains NPO Anasarca: compression socks,. Goal [...] Call team 01/11 for questions: Team Pager [phone] ATTENDING ADDENDUM: I saw and examined Mackenzie [...] Erin Christensen PA-C. Jf Wiseman MD FACS bundle sorter Division of Trauma, Critical Care, and Acute Care Surgery [id number] Elda Emmanuel MD - 05/03/2014 3:49 AM PST EMERGENCY GENERAL SURGERY ICU PROGRESS NOTE: Attending Physician: Jf Wiseman MD 05/03/2014 ID: Mackenzie Hartley is a 58 year old female with COPD, Crohn's disease, chronic pain, and coagulopa thy resulting in splenic artery thrombosis while anticoagulated with warfarin transferred to [facility] from [facility] for management of retroperitoneal bleed. She is [...] thrombosis while anticoagulated with warfarin transferred to [facility] from [facility] for management of retroperitoneal bleed. 1. Neuro: [...] this patient encounter. 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 Goal [...] Call team 01/11 for questions: Team Pager [phone] ATTENDING ADDENDUM: I saw and examined Mackenzie [...] Marge Harris PA-C. Jf Wiseman MD FACS bundle sorter Division of Trauma, Critical Care, and Acute Care Surgery [id number] GIAHarAngeles oglesby MD - 05/02/2014 6:55 AM PST [facility] DEPARTMENT OF SURGERY EGS ICU Progress Note Division of Trauma and Critical Care ID: Mackenzie Hartley is a 58 year old female with COPD, Crohn's disease, chronic pain, and 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 while anticoagulated with warfarin transferre d to [facility] from [facility] for management of retroperitoneal bleed. She is [...] thrombosis while anticoagulated with warfarin transferred to [facility] from [facility] for management of retroperitoneal bleed. Neuro: Minimize [...] Hannah MD General Surgery Resident, R3 Pager [phone] [place] [phone] arris, Angeles Hanna MD - 05/02/2014 2:14 [...] Hannah MD General Surgery Resident, R3 Pager [phone] ean-Claude Albrecht DMD, MD - 05/01/2014 10:36 AM PST [facility] DEPARTMENT OF SURGERY EGS Progress Note ID: Mackenzie Hartley is a 58 year old female with COPD, Crohn's disease, chronic pain, and 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 while anticoagulated with warfarin transferre d to [facility] from [facility] for management of retroperitoneal bleed. She is [...] thrombosis while anticoagulated with warfarin transferred to [facility] from [facility] for management of retroperitoneal bleed. Overall, she is improving. However, remains tachycardic with leukocytosis - WBC [address] 05/01 showed - moderate ascites and pleural effusions and hematoma. Neuro: dilaudid IV PRN Speech: following continue daily to eval swallow CV: HD stable L PHLEBOTOMY TECH PSA resolved Continue IV lasix today 20 [...] acute care hospitalization Jean-Claude Albrecht D.M.D., M.D. [facility] [place] [address] Jf Jones MD - 04/30/2014 11:08 AM [...] She was transferred to [facility] fo r active hemorrhage and underwent IR [...] malnutrition: - pulled DHT- refusing replacement. Await COMMUNITY EDUCATOR eval if passes swallow will give chance to prove adequate po intake. Expect will require TFs again Dysphagia: await COMMUNITY EDUCATOR eval today. Cont meds and feed via [...] Call team 01/11 for questions: Team Pager [phone] ATTENDING ADDENDUM: I saw and examined Mackenzie [...] Marge Harris PA-C. Jf Wiseman MD FACS bundle sorter Division of Trauma, Critical Care, and Acute Care Surgery [id number] Angeles Acevedo MD - 04/30/2014 1:18 AM PST [facility] DEPARTMENT OF SURGERY EGS ICU Progress Note Division of Trauma and Critical Care ID: Mackenzie Hartley is a 58 year old female with COPD, Crohn's disease, chronic pain, and 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 while anticoagulated with warfarin transferre d to [facility] from [facility] for management of retroperitoneal bleed. She is [...] thrombosis while anticoagulated with warfarin transferred to [facility] from [facility] for management of retroperitoneal bleed. Overall, she is improving. However, remains tachycardic with leukocytosis -- difficult to t ease out if this is secondary to asplenia. Will obtain CT abd pelvis today to clarify. Neuro: dilaudid IV PRN and intermittent versed for sedation CV: HD stable L PHLEBOTOMY TECH PSA resolved Pulm: titrate to O2 >92% [...] Hannah MD General Surgery Resident, R3 Pager [phone] [facility] [place] [address] [address] [facility] [address] Aravind Morales MD - 04/29/2014 11:43 AM PSTICU Attending: I saw and examined Mackenzie Hartley ([id number]) with Erin Christensen PA-C on 04/29/14 and [...] of time documented by Kaci Massey MD Ice Skating Teacher Trauma, Critical Care & Acute Care [...] She was transferred to [facility] fo r active hemorrhage. Hospital Day #6 [...] resolving cont current H2O via DHT Dysphagia: COMMUNITY EDUCATOR consulted, ice chips only. Cont meds and [...] Call team 01/11 for questions: Team Pager [phone] Chelly Blum MD,M PH - 04/28/2014 3:03 [...] She was transferred to [facility] fo r active hemorrhage. Hospital Day #5 [...] Hyernatremia: resolving, reduce H2O to 30ml/hr Dysphagia: COMMUNITY EDUCATOR consulted, ice chips only. Cont meds and [...] Call team 01/11 for questions: Team Pager [phone] Angeles Acevedo MD - 04/28/2014 5:18 AM PST [facility] DEPARTMENT OF SURGERY EGS ICU Progress Note Division of Trauma and Critical Care ID: Mackenzie Hartley is a 58 year old female with COPD, Crohn's disease, chronic pain, and 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 while anticoagulated with warfarin transferre d to [facility] from [facility] for management of retroperitoneal bleed. She is s/p ex lap, splenectomy, and packing with lap pads at OSH and from reopening of laparotomy, evacua tion of 2-3 L of intraabdominal hematoma, closure of open abdomen SUBJECTIVE: Extubated, neurologically doing much better. 3 L NC Underwent successful thrombin injection of L PHLEBOTOMY TECH pseudoaneurysm by IR 04/26 MEDICATIONS: Current facility-administered [...] thrombosis while anticoagulated with warfarin transferred to [facility] from [facility] for management of retroperitoneal bleed. Neuro: dilaudid IV PRN and intermittent versed for sedation CV: HD stable Per vascular: arterial duplex of L PHLEBOTOMY TECH to assess for stability of PSA shows [...] Hannah MD General Surgery Resident, R3 Pager [phone] [facility] [place] [address] [place] [facility] [place] [address] Xin Irizarry M D - 04/27/2014 11:55 [...] diagnosti c imaging and laboratory study results [facility] DEPARTMENT: [id number] - [facility] [place] Place of Service: - Inpatient Date of Service: 04-27-2014 Modifiers: GC - Resident Involved Suggested CPT: 05486 - Initial, Comp; Mod complex 50 min XIN AGEE MD [facility] [address] [facility] [address] [place] [address] wpriya Rudy Markham Adriel - 04/27/2014 11:55 AM PST Hematology Consult Progress Note Primary Service: EGS Primary Attending: Jf Wiseman MD Hospital Length of Stay: 4 Interval Events: - extubated - thrombin injection to PHLEBOTOMY TECH pseudoaneurysm - heparin gtt started last night Subjective: Patient is unable to provide history as she remains encephalopathic. Did speak with her , who confirmed history obtained in initial heme consult note. States she givens s been on warfarin since her 2011 [facility] admission with no known thrombotic [...] assessme nt and plan. Rudy Sarmiento, DO [facility] Internal Medicine PGY3 Pager [phone] Mirela Josue MD - 04/27/2014 10:49 AM PST [facility] Department of Surgery Progress Note [...] underwent successful thrombin injection of the left PHLEBOTOMY TECH pseudoaneurysm by IR last night. Heparin restarted [...] ultraso und guided thrombin injection of left PHLEBOTOMY TECH pseudoanuerysm. Will order arterial duplex of left PHLEBOTOMY TECH to assess for stability of pseudoaneurysm Monitor [...] - hemorrhage vs [facility] LUCY MARKS MD [address] [facility] [address] [place] [address] This assessment and plan was formulated both independently and in conjunction with the [facility] ular Surgery Team as well as the attending provider of record above regarding management of this patient and their medical issues. It is accurate to the best of my knowledge, and is s ubject to modification based on clinical developments, new data, or final imaging results. [facility] staff I saw and evaluated the patient. I agree with the findings and the plan of care as petern laxmi in the resident s note. Left femoral pseudoaneurysm appears resolved. Stable from the [facility]opedic specialty hospital standpoint. No further imaging required unless clinical status changes. Mirela Thompson M.D. [facility] Vascular Surgery [address] [facility] [place] [address] Email: [email or web address] Jf Jones MD - 04/27/2014 8:03 [...] She was transferred to [facility] fo r active hemorrhage. Hospital Day #4 [...] H2O Hyernatremia: water 100ml/hr via DHT Dysphagia: COMMUNITY EDUCATOR consulted, ice chips only JULIANE: ATN from [...] Call team 01/11 for questions: Team Pager [phone] ATTENDING ADDENDUM: I saw and examined Mackenzie [...] Erin Christensen PA-C. Jf Wiseman MD FACS bundle sorter Division of Trauma, Critical Care, and Acute Care Surgery [id number] aElda tejada MD - 04/27/2014 4:52 AM PST EMERGENCY GENERAL SURGERY ICU PROGRESS NOTE: Attending Physician: Jf Wiseman MD 04/27/2014 ID: Mackenzie Hartley is a 58 year old female with COPD, Crohn's disease, chronic pain, and coagulopa thy resulting in splenic artery thrombosis while anticoagulated with warfarin transferred to [facility] from [facility] for management of retroperitoneal bleed. She is [...] HR EVENTS: - Incidentally found to have PHLEBOTOMY TECH pseudoaneurysm, injected with thrombin by IR - [...] : NGTD ACTIVE PROBLEMS AND PLAN: Mackenzie Hatrley is a 58 year old female with COPD, Crohn's disease, chronic pain, and coagulopa thy resulting in splenic artery thrombosis while anticoagulated with warfarin transferred to [facility] from [facility] for management of retroperitoneal bleed. Neuro: oxy [...] this patient encounter. 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 Lenny Calhoun MD (Fellow)/pager: Dr. Vang [phone] Medications Procedure Meds: Dilaudid IV 0.5mg Midazolam [...] She was transferred to [facility] fo r active hemorrhage. Hospital Day #4 [...] Call team 01/11 for questions: Team Pager [phone] Angeles Acevedo MD - 04/26/2014 5:24 AM PST [facility] DEPARTMENT OF SURGERY EGS ICU Progress Note Division of Trauma and Critical Care ID: Mackenzie Hartley is a 58 year old female with COPD, Crohn's disease, chronic pain, and 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 while anticoagulated with warfarin transferre d to [facility] from [facility] for management of retroperitoneal bleed. She is [...] thrombosis while anticoagulated with warfarin transferred to [facility] from [facility] for management of retroperitoneal bleed. Neuro: dilaudid [...] Hannah MD General Surgery Resident, R3 Pager [phone] [facility] [place] [address] [address] [facility] [address] ithya Bailey MD - 04/25/2014 6:40 AM PSTTSICU Attending 04/25/14 58 yo woman critically ill with complex surgical and medical history, transferred to [facility] intraabdominal and retroperitoneal hemorrhage 2 days [...] Call team 01/11 for questions: Team Pager [phone] Angeles Acevedo MD - 04/25/2014 4:39 AM PST [facility] DEPARTMENT OF SURGERY EGS ICU Progress Note Division of Trauma and Critical Care ID: Mackenzie Hartley is a 58 year old female with COPD, Crohn's disease, chronic pain, and 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 while anticoagulated with warfarin transferre d to [facility] from [facility] for management of retroperitoneal bleed. She is [...] thrombosis while anticoagulated with warfarin transferred to [facility] from [facility] for management of retroperitoneal bleed. Neuro: dilaudid [...] Hannah MD General Surgery Resident, R3 Pager [phone] [facility] [place] [address] Rich Pappas MD - 04/24/2014 9:21 AM [...] extubate Initial surgical contact: Miladis at pager [phone] Nithya Andres MD - 04/24/2014 5:25 AM [...] exploration at referring hospital. IR embolization at [facility]. 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 She is [...] thrombosis while anticoagulated with warfarin transferred to [facility] from [facility] for management of retroperitoneal bleed. She is [...] Hannah MD General Surgery Resident, R3 Pager [phone] [facility] [place] [address] [place] [address] Rudy Parker M D - 04/23/2014 5:07 PM PSTBRIEF INTERVENTIONAL RADIOLOGY PROCEDURE NOTE DATE: 04/23/2014 5:07 PM PROCEDURE: Pelvic angiography with glue embolization PRE-PROCEDURE DIAGNOSIS: Retroperitoneal hematoma POST-PROCEDURE DIAGNOSIS: Same IR STAFF: Lenny IR FELLOW: Ciera ACCESS: L PHLEBOTOMY TECH MEDICATIONS: Fentanyl IV 150 mcg Midazolam IV [...] | + +--------+ + + + | [facility] PORTABLE | Routin | 04/27/2014 | [...] [facility] | [address] | [place] [address] | | | JANELL SHARP | BERTRAM [...] Lupe SANDERS | [address] | [place], [place] | | | [facility] OF [facility] | [address] | [address] | | | TESTS | | | [...] [facility] | [address] | [place] [address] | | | SERVICES, CORE | PARK [...] [facility] | [address] | [place] [address] | | | SERVICES, CORE | PARK [...] | | | LABORATORY | | | [employer] | | | SERVICES, | | | [...] | + + + + + | [facility] | [address] | [place] [address] | | | ARON, JANELL | BERTRAM [...] [facility] | [address] | [place], [place] | | | HILL, POINT OF CARE | [address] | [address] | | | TESTS | | | [...] [facility] | [address] | [place], [place] | | | [facility] CARE | [address] | [address] | | | TESTS | | | [...] | + + + + + | [facility] | [address] | [place] [address] | | | SERVICES, CORE | PARK [...] 2.5 mg/dL | [facility] | | | JFMA | | | [...] | + + + + + | [facility] | [address] | [place] [address] | | | SERVICES, CORE | BERTRAM [...] | | | LABORATORY | | | [employer] | | | SERVICES, | | | [...] the MDRD equation recommended by the | [facility] | | National Kidney Disease [...] | + + + + + | [facility] | [address] | [place] [address] | | | JANELL SHARP | BERTRAM [...] | + + + + + | [facility] | [address] | [place] [address] | | | JANELL SHARP | BERTRAM [...] - MARILY[facility] | [address] | [place], [place] | | | [facility] CARE | [address] | [address] | | | TESTS | | | [...] (H) | 60 - 99 mg/dL | [facility] - | | [...] SANDERS | [address] | [place], [place] | | | OSCAR POINT OF CARE | [address] | [address] | | | TESTS | | | [...] | + + + + + | [facility] | [address] | [place] [address] | | | SERVICES, CORE | PARK [...] | + + + + + | [facility] | [address] | [place] [address] | | | SERVICES, CORE | BERTRAM [...] | | | LABORATORY | | | [employer] | | | SERVICES, | | | [...] | + + + + + | [facility] | [address] | [place] [address] | | | SERVICES, CORE | PARK [...] (H) | 0.90 - 1.20 INR | [facility] | | | [...] | + + + + + | [facility] | [address] | [place] [address] | | | SERVICES, CORE | PARK [...] - [facility] | [address] | [place], [place] | | | OSCAR POINT OF CARE | [address] | [address] | | | TESTS | | | [...] + + + | [facility] | [address] | [place], [place] | | | [facility] OF [facility] | [address] | [address] | | | TESTS | | | [...] | | + +---------+ + + | [facility] DEPARTMENT OF | [...] MAR[facility] | [address] | [place], [place] | | | OSCAR POINT OF CARE | [address] | [address] | | | TESTS | | | [...] MAR[facility] | [address] | [place], [place] | | | [facility]ORE OF [facility] | [address] | [address] | | | TESTS | | | [...] | + + + + + | [facility] | [address] | [place] [address] | | | SERVICES, CORE [...] (L) | 1.8 - 2.5 mg/dL | [facility] | | | JFMA | [...] | + + + + + | [facility] | [address] | [place] [address] | | | SERVICES, CORE | PARK [...] | | | LABORATORY | | | [employer] | | | SERVICES, | | | [...] the MDRD equation recommended by the | [facility] | | National Kidney Disease [...] | + + + + + | [facility] | [address] | [place] [address] | | | ARON, JANELL | BERTRAM [...] | + + + + + | [facility] | [address] | [place] [address] | | | JANELL SHARP | BERTRAM [...] DAVIDAM | [address] | [place], [place] | | | [facility] OF CARE | [facility] | [address] | | | TESTS | | | [...] SANDERS | [address] | [place], [place] | | | OSCAR POINT OF CARE | [address] | [address] | | | TESTS | | | [...] MARQU[facility] | [address] | [place], [place] | | | [facility] CARE | [address] | [address] | | | TESTS | | | [...] | + + + + + | [facility] | [address] | [place] [address] | | | SERVICES, CORE | BERTRAM [...] [facility] | [address] | [place] [address] | | | SERVICES, CORE | PARK [...] | | | LABORATORY | | | [employer] | | | SERVICES, | | | [...] | + + + + + | [facility] | [address] | [place] [address] | | | SERVICES, CORE | PARK [...] | + + + + + | [facility] | [address] | [place] [address] | | | SERVICES, CORE | BERTRAM [...] (H) | 60 - 99 mg/dL | [facility] - | | [...] + + + | [facility] | [address] | [place], [place] | | | OSCAR POINT OF CARE | [address] | [address] | | | TESTS | | | [...] MARQU[facility] | [address] | [place], [place] | | | OSCAR POINT OF CARE | [address] | [address] | | | TESTS | | | [...] | + + + + + | [facility] | [address] | [place] [address] | | | SERVICES, JANELL | BERTRAM [...] [facility] | [address] | [place] [address] | | | SERVICES, CORE | PARK [...] | | | LABORATORY | | | [employer] | | | SERVICES, | | | [...] | + + + + + | [facility] | [address] | [place] [address] | | | SERVICES, CORE | PARK [...] | + + + + + | [facility] | [address] | [place] [address] | | | SERVICES, CORE | BERTRAM [...] SANDERS | [address] | [place], [place] | | | [place] [facility]ORE OF [place] | [facility] | [address] | | | TESTS | | | [...] - DAVID[facility] | [address] | [place], [place] | | | OSCAR POINT OF CARE | [facility] | [address] | | | TESTS | | | [...] [facility] | [address] | [place] [address] | | | JANELL SHARP | PARK [...] [facility] | [address] | [place] [address] | | | SERVICES, CORE | BERTRAM [...] | | | LABORATORY | | | [employer] | | | SERVICES, | | | [...] | + + + + + | [facility] | [address] | [place] [address] | | | SERVICES, CORE | BERTRAM [...] | + + + + + | [facility] | [address] | [place] [address] | | | SERVICES, JANELL | PARK [...] MAR[facility] | [address] | [place], [place] | | | [facility] CARE | [address] | [address] | | | TESTS | | | [...] | + + + + + | [facility] | [address] | [place] [address] | | | SERVICES, CORE | BERTRAM [...] (H) | 60 - 99 mg/dL | [facility] - | | [...] SANDERS | [address] | [place], [place] | | | [facility] CARE | [address] | [address] | | | TESTS | | | [...] MARQU[facility] | [address] | [place], [place] | | | [facility] CARE | [address] | [address] | | | TESTS | | | [...] | + + + + + | [facility] | [address] | [place] [address] | | | SERVICES, CORE | BERTRAM [...] [facility] | [address] | [place] [address] | | | SERVICES, CORE | PARK [...] | | | LABORATORY | | | [employer] | | | SERVICES, | | | [...] | + + + + + | [facility] | [address] | [place] [address] | | | SERVICES, CORE | PARK [...] [facility] | [address] | [place] [address] | | | SERVICES, CORE | BERTRAM [...] + + | [facility] | [address] | [place] [address] | | | SERVICES, CORE | PARK [...] [facility] | [address] | [place] [address] | | | ARON, CORE | BERTRAM [...] [facility] | [address] | [place] [address] | | | SERVICES, CORE | BERTRAM [...] | | | LABORATORY | | | [employer] | | | SERVICES, | | | [...] | + + + + + | [facility] | [address] | [place] [address] | | | SERVICES, CORE | PARK [...] | + + + + + | [facility] | [address] | [place] [address] | | | SERVICES, CORE | [address] | | | + + + + + WELCOME TO [employer] (VIDEO) (05/04/2014 2:18 PM PST) + +--------+ [...] + + + + | [facility] | [address] | [place] [address] | | | [facility] | [address] | | | + + [...] [facility] | [address] | [place] [address] | | | SERVICES, CORE | PARK [...] [facility] | [address] | [place] [address] | | | SERVICES, [facility] | [address] | | | [...] [facility] | [address] | [place] [address] | | | SERVICES, CORE | PARK [...] [facility] | [address] | [place] [address] | | | SERVICES, CORE | PARK [...] | | | LABORATORY | | | [employer] | | | SERVICES, | | | [...] | + + + + + | [facility] | [address] | [place] [address] | | | SERVICES, CORE | BERTRAM [...] | + + + + + | [facility] | [address] | [place] [address] | | | SERVICES, CORE | BERTRAM [...] [facility] | [address] | [place] [address] | | | SERVICES, CORE | PARK [...] [facility] | [address] | [place] [address] | | | SERVICES, CORE | PARK [...] [facility] | [address] | [place] [address] | | | SERVICES, CORE | PARK [...] | + + + + + | [facility] | [address] | [place] [address] | | | SERVICES, CORE | PARK [...] [facility] | [address] | [place], [place] | | | OSCAR POINT OF CARE | [address] | [address] | | | TESTS | | | [...] | + + + + + | [facility] | [address] | [place] [address] | | | SERVICES, CORE | PARK [...] | + + + + + | [facility] | [address] | [place] [address] | | | SERVICES, CORE | PARK [...] | | | LABORATORY | | | [employer] | | | SERVICES, | | | [...] [facility] | [address] | [place] [address] | | | SERVICES, CORE | BERTRAM [...] | + + + + + | [facility] | [address] | [place] [address] | | | SERVICES, CORE | BERTRAM [...] + + | [facility] | [address] | [place] [address] | | | ARON, JANELL | PARK [...] | | | LABORATORY | | | [employer] | | | SERVICES, | | | [...] the MDRD equation recommended by the | [facility] | | National Kidney Disease Education Program. [...] + + | [facility] | [address] | [place] [address] | | | SERVICES, CORE | PARK [...] | | | LABORATORY | | | [employer] | | | SERVICES, | | | [...] | + + + + + | [facility] | [address] | [place] [address] | | | SERVICES, [facility] | [address] | | | [...] [facility] | [address] | [place], [place] | | | THERAPY | [address] | [address] | | + + + + + [...] [facility] | [address] | [place], [place] | | | THERAPY | [address] | [address] | | + + + + + [...] [facility] | [address] | [place] [address] | | | SERVICES, CORE | PARK [...] | + + + + + | [facility] | [address] | [place] [address] | | | ARON, JANELL | BERTRAM [...] [facility] | [address] | [place] [address] | | | SERVICES, CORE | [address] [...] | | | LABORATORY | | | [employer] | | | SERVICES, | | | [...] | + + + + + | [facility] | [address] | [place] [address] | | | SERVICES, CORE | PARK [...] | + + + + + | [facility] | [address] | [place] [address] | | | SERVICES, CORE | PARK [...] DEPT OF | [address] | [place], [place] | | | CARDIOLOGY | [address] | [address] | | + + + + + X-RAY PORTABLE CHEST 1 VIEW (05/02/2014 2:11 AM PST) + + + + + + | Component | Value | Ref Range | Performed | Pathologist | | | | | At | Signature | + + + + + + | X-RAY | EXAM: DE CHEST 1 VIEW | | | | [...] | + + + + + | [facility] | [address] | [place] [address] | | | SERVICES, CORE | PARK [...] SANDERS | [address] | [place], [place] | | | [place] [facility] [place] | [facility] | [address] | | | TESTS | | | [...] - [facility] | [address] | [place], [place] | | | [facility] | [facility] | [address] | | | TESTS | | | [...] | + + + + + | [facility] | [address] | [place] [address] | | | SERVICES, CORE | [address] | | | + + + + + X-RAY PORTABLE CHEST 1 VIEW (05/01/2014 3:37 AM PST) + + + + + + | Component | Value | Ref Range | Performed | Pathologist | | | | | At | Signature | + + + + + + | X-RAY | EXAM: DE CHEST 1 VIEW | | | | [...] Bilateral | | | | | | spgbm-ul-axdthptg | | | | | | pleural [...] [facility] | [address] | [place] [address] | | | SERVICES, JANELL | BERTRAM [...] | + + + + + | [facility] | [address] | [place] [address] | | | SERVICES, CORE | [address] [...] | | | LABORATORY | | | [employer] | | | SERVICES, | | | [...] the MDRD equation recommended by the | [facility] | | National Kidney Disease Education Program. [...] [facility] | [address] | [place] [address] | | | SERVICES, CORE | PARK [...] | + + + + + | [facility] | [address] | [place] [address] | | | JANELL SHARP | BERTRAM [...] [facility] | [address] | [place], [place] | | | [facility] | [facility] | [address] | | | TESTS | | | [...] | | | | | signed / JOISANE | | | | | | VIKA 04/30/2014 | | | | | | 16:46 PM | | | | + + + + + + + + | Specimen | + + | | + + + +---------+ + + | Performing | Address | City[facility]State[facility] | Phone Number | | Organization | | | | + +---------+ + + | [facility] DEPARTMENT OF | [...] + + + | X-RAY | STUDY: DE CHEST 1 VIEW | | | | [...] [facility] | [address] | [place] [address] | | | SERVICES, CORE | PARK [...] | + + + + + | [facility] | [address] | [place] [address] | | | JANELL SHARP | BERTRAM [...] | + + + + + | [facility] | [address] | [place] [address] | | | JANELL SHARP | BERTRAM [...] | | | LABORATORY | | | [employer] | | | SERVICES, | | | [...] | + + + + + | [facility] | [address] | [place] [address] | | | SERVICES, CORE | PARK [...] | | | LABORATORY | | | [employer] | | | SERVICES, | | | [...] the MDRD equation recommended by the | [facility] | | National Kidney Disease [...] | + + + + + | [facility] | [address] | [place] [address] | | | ARON, JANELL | BERTRAM [...] [facility] | [address] | [place], [place] | | | [place] | [address] | [address] | | | TESTS | | | [...] [facility] | [address] | [place] [id number] | | | SERVICES, CORE | BERTRAM [...] [facility] | [address] | [place] [address] | | | SERVICES, CORE | PARK [...] | | | LABORATORY | | | [employer] | | | SERVICES, | | | [...] | + + + + + | [facility] | [address] | [place] [address] | | | ARON, JANELL | BERTRAM [...] | + + + + + | [facility] | [address] | [place] [address] | | | SERVICES, JANELL | [address] [...] | + + + + + | [facility] | [address] | [place] [address] | | | SERVICES, CORE | BERTRAM [...] (H) | 60 - 99 mg/dL | [facility] - | | [...] SANDERS | [address] | [place], [place] | | | OSCAR POINT OF CARE | [address] | [address] | | | TESTS | | | [...] [facility] | [address] | [place] [address] | | | SERVICES, CORE | PARK [...] [facility] | [address] | [place] [address] | | | SERVICES, CORE | PARK [...] [facility] | [address] | [place] [address] | | | SERVICES, CORE | PARK [...] [facility] | [address] | [place] [address] | | | SERVICES, CORE | PARK [...] | | | LABORATORY | | | [employer] | | | SERVICES, | | | [...] | + + + + + | [facility] | [address] | [place] [address] | | | SERVICES, JANELL | BERTRAM [...] | + + + + + | [facility] | [address] | [place] [address] | | | ARON, JANELL | BERTRAM [...] | + + + + + | [facility] | [address] | [place] [address] | | | SERVICES, CORE | PARK [...] | | + +---------+ + + | [facility] DEPARTMENT OF | [...] | + + + + + | [facility] | [address] | [place] [address] | | | ARON, JANELL | BERTRAM [...] [facility] | [address] | [place], [place] | | | [facility] | [address] | [id number] | | | TESTS | | | | + + + + + X-RAY ABD LTD FEEDING TUBE EVAL PORTABLE (04/27/2014 10:33 AM PST) + + + + + + | Component | Value | Ref Range | Performed | Pathologist | | | | | At | Signature | + + + + + + | X-RAY ABD | STUDY: DE ABD LTD | | | | | [...] [facility] | [address] | [place] [address] | | | ARON, JANELL | BERTRAM [...] | + + + + + | [facility] | [address] | [place] [address] | | | SERVICES, CORE | BERTRAM [...] | + + + + + | [facility] | [address] | [place] [address] | | | SERVICES, CORE | BERTRAM [...] [facility] | [address] | [place] [address] | | | SERVICES, CORE | PARK [...] | | | LABORATORY | | | [employer] | | | SERVICES, | | | [...] | + + + + + | [facility] | [address] | [place] [address] | | | SERVICES, CORE | BERTRAM [...] [facility] | [address] | [place] [address] | | | SERVICES, JANELL | PARK [...] | + + + + + | [facility] | [address] | [place] [address] | | | SERVICES, CORE | BERTRAM [...] | + + + + + | [facility] | [address] | [place] [address] | | | SERVICES, CORE | PARK [...] [facility] | [address] | [place] [address] | | | SERVICES, CORE | [address] | | | + + + + + MAGNESIUM, PLASMA (04/26/2014 7:41 PM PST) + +-------+ + + + | Component | Value | Ref Range | Performed | Pathologist | | | | | At | Signature | + +-------+ + + + | MAGNESIUM,P | 2.0 | 1.8 - 2.5 mg/dL | [facility] | | | LASMA | [...] | + + + + + | [facility] LABORATORY | [address] | [place] [address] | | | SERVICES, CORE | PARK [...] | | | LABORATORY | | | [place] [employer] [place] | | | SERVICES, | | | [...] | + + + + + | [facility] | [address] | [place] [address] | | | SERVICES, CORE | BERTRAM [...] PRIMARY | | | | | | BUILDING ASSOCIATE: Rudy | | | | | | [...] SANDERS | [address] | [place], [place] | | | PEPE MOORE OF [place] | [facility] | [address] | | | TESTS | | | | + + + + + [facility] CHRIS EXT CALEB MONTERROSO (04/26/2014 1:03 [...] | | + +---------+ + + | [facility] DEPARTMENT OF | [...] | + + + + + | [facility] | [address] | [place] [address] | | | SERVICES, CORE | BERTRAM [...] [facility] | [address] | [place] [address] | | | SERVICES, CORE | PARK [...] | + + + + + | [facility] | [address] | [place] [address] | | | SERVICES, CORE | PARK [...] | + + + + + | [facility] | [address] | [place] [address] | | | SERVICES, CORE | BERTRAM [...] | + + + + + | [facility] | [address] | [place] [address] | | | SERVICES, CORE | PARK [...] [facility] | [address] | [place] [address] | | | SERVICES, CORE | PARK [...] | | | LABORATORY | | | [place] [employer] [place] | | | SERVICES, | | | [...] | + + + + + | [facility] Events Core | [address] | [place] [address] | | | JANELL SHARP | BERTRAM [...] [facility] | [address] | [place] [address] | | | SERVICES, CORE | PARK [...] | + + + + + | [facility] | [address] | [place] [address] | | | JANELL SHARP | BERTRAM [...] [facility] | [address] | [place], [place] | | | [facility] | [address] | [address] | | | TESTS | | | [...] | | | LABORATORY | | | [place] | | | SERVICES, | | | [...] the MDRD equation recommended by the | [facility] | | National Kidney Disease [...] | + + + + + | [facility] | [address] | [place] [address] | | | JANELL SHARP | BERTRAM [...] [facility] | [address] | [place], [place] | | | POTWIN, POINT OF CARE | [address] | [address] | | | TESTS | | | [...] | + + + + + | [facility] | [address] | [place] [address] | | | SERVICES, CORE | BERTRAM [...] | + + + + + | [facility] | [address] | [place] [address] | | | SERVICES, CORE | BERTRAM [...] + + + + | PRODUCT | [id number] | | [facility] | | | UNIT [...] + + + + | BLOOD | [id number] | | [facility] | | | PRODUCT [...] DEPARTMENT OF | [address] | [place] [address] | | | PATHOLOGY | [address] [...] + + + + | PRODUCT | [id number] | | [facility] | | | UNIT [...] + + + + | BLOOD | [id number] | | [facility] | | | PRODUCT [...] DEPARTMENT OF | [address] | [place] [address] | | | PATHOLOGY | [address] [...] | + + + + + | [facility] | [address] | [place] [address] | | | SERVICES, JANELL | PARK [...] | + + + + + | [facility] | [address] | [place] [address] | | | SERVICES, CORE | PARK [...] | | | LABORATORY | | | [place] [employer] [place] | | | SERVICES, | | | [...] the MDRD equation recommended by the | [facility] | | National Kidney Disease [...] | + + + + + | [facility] | [address] | [place] [address] | | | JANELL SHARP | BERTRAM [...] [facility] | [address] | [place] [address] | | | SERVICES, CORE | PARK [...] [facility] | [address] | [place] [address] | | | SERVICES, CORE | PARK [...] [facility] | [address] | [place] [address] | | | SERVICES, CORE | BERTRAM [...] | + + + + + | [facility] | [address] | [place] [address] | | | SERVICESJANELL | [address] [...] MARGOPIAM | [address] | [place], [place] | | | PEPE MOORE OF CARE | [facility] | [address] | | | TESTS | | | [...] SANDERS | [address] | [place], [place] | | | PEPE MOORE OF CARE | [address] | [address] | | | TESTS | | | [...] [facility] | [address] | [place] [address] | | | SERVICES, CORE | BERTRAM [...] | + + + + + | [employer] | [address] | [place] [address] | | | SERVICES, CORE | BERTRAM [...] [facility] | [address] | [place] [address] | | | ARON, CORE | BERTRAM [...] | + + + + + | [facility] | [address] | [place] [address] | | | SERVICES, JANELL | [address] | | | + + + + + X-RAY PORTABLE CHEST 1 VIEW (04/24/2014 5:32 AM PST) + + + + + + | Component | Value | Ref Range | Performed | Pathologist | | | | | At | Signature | + + + + + + | X-RAY | STUDY: DE CHEST 1 VIEW | | | | [...] | | + +---------+ + + | [facility] DEPARTMENT | | | | [...] | + + + + + | [facility] | [address] | [place] [address] | | | JANELL SHARP | BERTRAM [...] | | | LABORATORY | | | T[employer] [place] | | | SERVICES, | | | [...] [facility] | [address] | [place] [address] | | | SERVICES, CORE [...] | + + + + + | [facility] | [address] | [place] [address] | | | SERVICES, CORE | PARK [...] | + + + + + | [facility] | [address] | [place] [address] | | | SERVICES, CORE | BERTRAM [...] [facility] | [address] | [place], [place] | | | THERAPY | [address] | [address] | | + + + + + [...] [facility] | [address] | [place], [place] | | | THERAPY | [address] | [address] | | + + + + + [...] | | | LABORATORY | | | TUR[place] [employer] [place] | | | SERVICES, | | | [...] the MDRD equation recommended by the | [facility] | | National Kidney Disease [...] | + + + + + | [facility] | [address] | [place] [address] | | | SERVICES, CORE | PARK [...] [facility] | [address] | [place] [address] | | | SERVICES, CORE | PARK [...] | + + + + + | [facility] | [address] | [place] [address] | | | SERVICES, CORE | PARK [...] [facility] | [address] | [place] [address] | | | SERVICES, CORE | BERTRAM [...] + + | [facility] | [address] | [place] [address] | | | SERVICES, JANELL | BERTRAM [...] [facility] | [address] | [place] [address] | | | SERVICES, CORE [...] [facility] | [address] | [place] [address] | | | SERVICES, CORE | PARK [...] | | | LABORATORY | | | [employer] [place] | | | SERVICES, | | | [...] | + + + + + | [facility] | [address] | [place] [address] | | | SERVICES, CORE | BERTRAM [...] | + + + + + | [facility] | [address] | [place] [address] | | | JANELL SHARP | BERTRAM [...] + + + | [facility] | [address] | [place], [place] | | | OSCAR MELVIN OF [facility] | [address] | [address] | | | TESTS | | | [...] PRIMARY | | | | | | BUILDING ASSOCIATE: Rudy | | | | | | [...] 5 | | | | | | Mexican vascular sheath | | | | | [...] | | | | for a 5 Mexican | | | | | | IMAcatheter. [...] | | | | artery. A 3 Mexican | | | | | | microcatheterwas [...] [facility] | [address] | [place], [place] | | | CARDIOLOGY | [address] | [address] | | + + + + + [...] + + + + | PRODUCT | [id number] | | [facility] | | | UNIT [...] + + + + | BLOOD | [id number] | | [facility] | | | PRODUCT [...] | + + + + + | [facility] DEPARTMENT OF | [address] | [place] [address] | | | PATHOLOGY | [address] [...] + + + + | PRODUCT | [id number] | | [facility] | | | UNIT [...] + + + + | BLOOD | [id number] | | [facility] | | | PRODUCT [...] | + + + + + | [facility] DEPARTMENT OF | [address] | [place] [address] | | | PATHOLOGY | [address] [...] + + + + | PRODUCT | [id number] | | [facility] | | | UNIT [...] + + + + | BLOOD | [id number] | | [facility] | | | PRODUCT [...] OF | [address] | [place] [address] | | | PATHOLOGY | [address] [...] + + + + | PRODUCT | [id number] | | [facility] | | | UNIT [...] + + + + | BLOOD | [id number] | | [facility] | | | PRODUCT [...] | + + + + + | [facility] DEPARTMENT OF | [address] | [place] [address] | | | PATHOLOGY | [address] [...] + + + + | PRODUCT | [id number] | | [facility] | | | UNIT [...] + + + + | BLOOD | [id number] | | [facility] | | | PRODUCT [...] DEPARTMENT OF | [address] | [place] [address] | | | PATHOLOGY | [address] [...] + + + + | PRODUCT | [id number] | | [facility] | | | UNIT [...] + + + + | BLOOD | [id number] | | [facility] | | | PRODUCT [...] | + + + + + | [facility] DEPARTMENT OF | [address] | [place] [address] | | | PATHOLOGY | [address] | | | + + + + + X-RAY PORTABLE CHEST 1 VIEW (04/23/2014 11:41 AM PST) + + + + + + | Component | Value | Ref Range | Performed | Pathologist | | | | | At | Signature | + + + + + + | X-RAY | EXAM: DE CHEST 1 VIEW | | | | [...] | | + +---------+ + + | [facility] DEPARTMENT OF | [...] + + + + | PRODUCT | [id number] | | [facility] | | | UNIT [...] + + + + | BLOOD | [id number] | | [facility] | | | PRODUCT [...] DEPARTMENT OF | [address] | [place] [address] | | | PATHOLOGY | [address] [...] + + + + | PRODUCT | [id number] | | [facility] | | | UNIT [...] + + + + | BLOOD | [id number] | | [facility] | | | PRODUCT [...] DEPARTMENT OF | [address] | [place] [address] | | | PATHOLOGY | [address] [...] + + + + | PRODUCT | [id number] | | [facility] | | | UNIT [...] + + + + | BLOOD | [id number] | | [facility] | | | PRODUCT [...] DEPARTMENT OF | [address] | [place] [address] | | | PATHOLOGY | [address] [...] + + + + | PRODUCT | [id number] | | [facility] | | | UNIT [...] + + + + | BLOOD | [id number] | | [facility] | | | PRODUCT [...] | + + + + + | [facility] DEPARTMENT OF | [address] | [place] [address] | | | PATHOLOGY | [address] [...] + + + + | PRODUCT | [id number] | | [facility] | | | UNIT [...] + + + + | BLOOD | [id number] | | [facility] | | | PRODUCT [...] | + + + + + | [facility] DEPARTMENT OF | [address] | [place] [address] | | | PATHOLOGY | [address] [...] + + + + | PRODUCT | [id number] | | [facility] | | | UNIT [...] + + + + | BLOOD | [id number] | | [facility] | | | PRODUCT [...] | + + + + + | [facility][1] | [address] | [place] [address] | | | PATHOLOGY | [address] [...] + + + + | PRODUCT | [id number] | | [facility] | | | UNIT [...] + + + + | BLOOD | [id number] | | [facility] | | | PRODUCT [...] DEPARTMENT OF | [address] | [place] [address] | | | PATHOLOGY | [address] [...] + + + + | PRODUCT | [id number] | | [facility] | | | UNIT [...] + + + + | BLOOD | [id number] | | [facility] | | | PRODUCT [...] | + + + + + | [facility][1] | [address] | [place] [address] | | | PATHOLOGY | [address] [...] + + + + | PRODUCT | [id number] | | [facility] | | | UNIT [...] + + + + | BLOOD | [id number] | | [facility] | | | PRODUCT [...] [facility] DEPARTMENT | [address] | [place] [address] | | | PATHOLOGY | [address] [...] + + + + | PRODUCT | [id number] | | [facility] | | | UNIT [...] + + + + | BLOOD | [id number] | | [facility] | | | PRODUCT [...] | + + + + + | [facility] DEPARTMENT OF | [address] | [place] [address] | | | PATHOLOGY | [address] [...] + + + + | PRODUCT | [id number] | | [facility] | | | UNIT [...] + + + + | BLOOD | [id number] | | [facility] | | | PRODUCT [...] | + + + + + | [facility] DEPARTMENT | [address] | [place] [address] | | | PATHOLOGY | [address] [...] + + + + | PRODUCT | [id number] | | [facility] | | | UNIT [...] + + + + | BLOOD | [id number] | | [facility] | | | PRODUCT [...] | + + + + + | [facility] DEPARTMENT OF | [address] | [place] [address] | | | PATHOLOGY | [address] [...] + + + + | PRODUCT | [id number] | | [facility] | | | UNIT [...] + + + + | BLOOD | [id number] | | [facility] | | | PRODUCT [...] | + + + + + | [facility] DEPARTMENT OF | [address] | [place] [address] | | | PATHOLOGY | [address] [...] + + + + | PRODUCT | [id number] | | [facility] | | | UNIT [...] + + + + | BLOOD | [id number] | | [facility] | | | PRODUCT [...] | + + + + + | [facility] DEPARTMENT OF | [address] | [place] [address] | | | PATHOLOGY | [address] [...] [facility] | [address] | [place] [address] | | | SERVICES, CORE | PARK [...] [facility] | [address] | [place] [address] | | | SERVICES, CORE | [address] [...] | + + + + + | [facility] | [address] | [place] [address] | | | JANELL SHARP | [address] [...] | | | LABORATORY | | | TUR[employer] [place] | | | SERVICES, | | | [...] [facility] | [address] | [place] [address] | | | SERVICES, CORE | PARK [...] [facility] | [address] | [place] [address] | | | SERVICES, CORE | PARK [...] [facility] | [address] | [place] [address] | | | SERVICES, CORE | PARK [...] | + + + + + | [facility] | [address] | [place] [address] | | | ARON, JANELL | [address] [...] 89 | 60 - 99 mg/dL | [facility] - | | [...] [facility] | [address] | [place], [place] | | | OSCAR POINT OF CARE | [address] | [address] | | | TESTS | | | [...] [facility] | [address] | [place] [address] | | | SERVICES, | [address] [...] LABORATORY | [address] | [place] [address] | | | SERVICES, | [address] [...] + + + + | PRODUCT | [id number] | | [facility] | | | UNIT [...] + + + + | BLOOD | [id number] | | [facility] | | | PRODUCT [...] | + + + + + | [facility] DEPARTMENT OF | [address] | [place] [address] | | | PATHOLOGY | [address] [...] + + + + | PRODUCT | [id number] | | [facility] | | | UNIT [...] + + + + | BLOOD | [id number] | | [facility] | | | PRODUCT [...] [facility] DEPARTMENT | [address] | [place] [address] | | | PATHOLOGY | [address] [...] + + + + | PRODUCT | [id number] | | [facility] | | | UNIT [...] + + + + | BLOOD | [id number] | | [facility] | | | PRODUCT [...] | + + + + + | [facility][1] | [address] | [place] [address] | | | PATHOLOGY | [address] [...] + + + + | PRODUCT | [id number] | | [facility] | | | UNIT [...] + + + + | BLOOD | [id number] | | [facility] | | | PRODUCT [...] DEPARTMENT OF | [address] | [place] [address] | | | PATHOLOGY | [address] [...] + + + + | PRODUCT | [id number] | | [facility] | | | UNIT [...] + + + + | BLOOD | [id number] | | [facility] | | | PRODUCT [...] | + + + + + | [facility][1] | [address] | [place] [address] | | | PATHOLOGY | [address] [...] + + + + | PRODUCT | [id number] | | [facility] | | | UNIT [...] + + + + | BLOOD | [id number] | | [facility] | | | PRODUCT [...] | + + + + + | [facility][1] | [address] | [place] [address] | | | PATHOLOGY | [address] [...] | | | | | modification) on [facility] 05/02/14 at | | | | | [...] | | | | ONCE, 1 dose, [facility] 04/24/14 at | | AM PST | | | | | 1015 | | | | | | + +-------+ +-------+---+---+ +---+---+ | | | +---+---+ + +-------+ +-------+---+---+ | bisacodyl (DULCOLAX) | Given | 04/25/19 | 10 mg | | | | suppository 10 mg 10 mg, rectal, | | 15 10:55 | | | | | ONCE, 1 dose, [facility] 04/25/14 at | | AM PST | [...] | | | | | modification) on [facility] 05/02/14 at | | | | | [...] | | | | | dose on [facility] 05/02/14 at 0530, | | | | [...] | | | (after last modification) on [facility] | | | | | | | [...]
--- OUTSIDE RECORDS SUMMARY | ~2019-02-11 | XMS | Clinical Summary ---
Demographics + + + | Address | [address] | | | [place] [address] | + + + | Home Phone | | + + + | Preferred Language | Unknown | + + + | Marital Status | | + + + | Jew Affiliation | Unknown | + + + [...] Providers + +------+ + | Care Director Geothermal Operations Name | Role | Phone | + [...] Overview: Added automatically from request for surgery [id number] | + + + + + | [...] | Stricture esophagus dilated with bougue 20 belarusian 04/21/2014 | 04/22/2014 | + + + [...] +--------+ +---------+--------+ | MEDICARE | MEDICA | [id number] | 04/11/19 | [phone] | | Medica [...] bianca | | | 8 (Home) | [address] | + +--------+ +--------+ + +
--- OUTSIDE RECORDS SUMMARY | ~2019-02-11 | XMS | Encounter Summary ---
Demographics + + + | Address | [address] | | | [place] [address] | + + + | Home Phone [...] [place], [place] | | | | | [address] | | + + + + + | Cami Sawyer | ECON | Unknown | | + + + + + Care Team Providers + +------+ + | Care Solutions Architect Name | Role | Phone | [...] | 2011 | Encounter | [address] [facility] | | | | | | [facility] | | | | | | [facility] [place] | | | | | | [place], [place] | | | | | | [address] | | | | | | [phone] | | | +--------+ + + + [...]
--- OUTSIDE RECORDS SUMMARY | ~2019-02-11 | XMS | Encounter Summary ---
Demographics + + + | Address | [address] | | | [place] [address] | + + + | Home Phone | | + + + | Preferred Language | Unknown | + + + | Marital Status | | + + + | Methodist Affiliation | NRP | + + + [...] [place], [place] | | | | | [address] | | + + + + + | Cami Sawyer | ECON | Unknown | | + + + + + Care Team Providers + +------+ + | Care Quality Review Trainer Name | Role | Phone | + [...] | | 2016 | | Center at [facility] [address] | | - General | | | | [address] | | | | | | Mailcode: Center | | | | | | [facility] and | | | | | | [facility] | | | | | | [place], [place] | | | | | | [address] | | | | | | [phone] | | | +--------+ + + + [...]
--- OUTSIDE RECORDS SUMMARY | ~2019-02-11 | XMS | Encounter Summary ---
Demographics + + + | Address | [address] | | | [place] [address] | + + + | Home Phone [...] [place], [place] | | | | | [address] | | + + + + + | Caim Sawyer | ECON | Unknown | | + + + + + Care Team Providers + +------+ + | Care Heavy Equipment Engine Mechanic Name | Role | Phone | [...] | | | | | Procedures | [place], [place] | [facility] | | | | | CONSULT TO | [address] | for Health | | | | | GI PROCEDURE | Phone: | and Healing, | | | | | UNIT: | [phone] | [address] | | | | | FLEXIBLE | Fax: | [place], [place] | | | | | [facility] | [phone] | [address] | | | | | Y [place] | | Phone: | | | | | [employer] | | [phone] | | | | | Y,BIOPSY | | Fax: | | | | | | | [phone] | +--------+--------+ + + + + Reason [...] schedule tests | | 2016 | | [place] [facility] [address] | [address] | | | | | [address] | [facility], | | | | | Mailcode: [place] | [place] [address] | | | | | [facility] and | [phone] | | | | | [place] [address] | | | | | | [place], [place] | | | | | | [address] | | | | | | [phone] | | | +--------+ + + + [...]
--- OUTSIDE RECORDS SUMMARY | ~2019-02-11 | XMS | Encounter Summary ---
Demographics + + + | Address | [address] | | | [place] [address] | + + + | Home Phone [...] [place], [place] | | | | | [address] | | + + + + + [...] | | Located on the 9 | [place], [place] | retroperitonieal | | | | floor [address] [facility] | [phone] | hemorage, lysis of | | | | [address] | [phone] | adhesions, wound vac | | | | [place], [place] | | placement, and | | | | [address] | | abdominal wall | | | [...] different f rom the original. [facility] DEPARTMENT OF SURGERY EMERGENCY GENERAL SURGERY [...] and is discharged to [facility] facility for [facility] care. Mackenzie Hartley is discharged [...] 100mls three times a day. Destination: Destination: Nursing Home Facility Thank you for the opportunity to [...] different f rom the original. [facility] DEPARTMENT OF [...] transferred to [facility] from [facility] for hanh gement of retroperitoneal bleed. She [...] diet Discharge Plan: [place] [phone] pager number [facility] A [address] [facility] [address] Jean-Claude Chaidez DM D, MD - 05/12/2014 [...] transferred to [facility] from [facility] for management of retroperitoneal bleed. S he [...] transferred to [facility] from [facility] for management of retroperitoneal bleed. She is [...] M.D. [facility] [address]A [address] [place] [address] This assessment and plan was formulated both [...] transferred to [facility] from [facility] for management of retroperitoneal bleed. S he [...] transferred to [facility] from [facility] for management of retroperitoneal bleed. She is [...] M.D. [facility] [address]A [address] [place] [address] This assessment and plan was formulated both [...] being active. Pt's has been at the [facility] supporting her. Pt is not oriental orthodox but appreciates support. Intervention: Provided a listening presence and explored pt's anxieties, worries and hopes. Plan: Spiritual care remains available. Yvette Jolly, [facility] / [facility] phone # [phone] pager # [phone] on-call # [phone] signed by Lulu Diaz at 05/10/2014 12:58 [...] transferred to [facility] from [facility] for management of retroperitoneal bleed. S he [...] transferred to [facility] from [facility] for management of retroperitoneal bleed. She is [...] recommending JJ since would be close to [facility] and she would benefit for marcela olsone [...] [facility] [address]A [address] [facility] [address] [place] [address] This assessment and plan was [...] this note might be different from the [facility]. [facility] Department of Surgery [...] transferred to [facility] from [facility] for management of retroperitoneal bleed. S he [...] transferred to [facility] from [facility] for management of retroperitoneal bleed. She is [...] [facility] [address] [facility] [address] [place] [address] This assessment and plan was [...] be different from the orig [facility]. [facility] Department of Surgery [...] transferred to [facility] from [facility] for management of retroperitoneal bleed. S he [...] transferred to [facility] from [facility] for management of retroperitoneal bleed. She is [...] FOR CHILDREN and she would benefit for marcela robles [...] [facility] [address]A [address] [place] [address] This assessment and plan was formulated both [...] this note might be different from the [facility] Department of Surgery Progress [...] transferred to [facility] from [facility] for management of retroperitoneal bleed. S he [...] transferred to [facility] from [facility] for management of retroperitoneal bleed. She is [...] MD [facility] [address]A [address] [place] [address] This assessment and plan was [...] this note might be different from the [facility] Department of Surgery Progress [...] transferred to [facility] from [facility] for management of retroperitoneal bleed. S he [...] transferred to [facility] from [facility] for management of retroperitoneal bleed. She is [...] continued DHT,TF - Diet: NPO - per GUARD MUSEUM, high risk of aspiration - continue ice [...] 10A [address] [place] [address] This assessment and plan was [...] be different from the orig [facility]. [facility] Department of Surgery [...] transferred to [facility] from [facility] for management of retroperitoneal bleed. S he [...] transferred to [facility] from [facility] for management of retroperitoneal bleed. She is [...] 10A [address] [place] [address] This assessment and plan was formulated both [...] [facility] [address] [facility] [place] [address] Rosa Sauer MD - 05/04/2014 8:26 AM [...] at referring hospital. She was transferred to [facility] f or active hemorrhage and underwent [...] rounds. 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 She is [...] transferred to [facility] from [facility] for management of retroperitoneal bleed. She has required repeated transfers to ICU for respiratory status. She has been diuresed ap propriately while in the ICU and O2 needs have decreased significantly. Will transfer to [place] or, but need to keep a close [...] Hannah MD General Surgery Resident, R3 Pager [phone] [facility] [address] [place] [address] Jf Jones MD - 05/03/2014 9:38 AM [...] - TF at goal, + BM Dysphagia: GUARD MUSEUM following- remains NPO Anasarca: compression socks,. Goal [...] Call team 01/11 for questions: Team Pager [phone] ATTENDING ADDENDUM: I saw and examined Mackenzie [...] time sp ent by Erin Christensen PA-C. fJ Wiseman MD FACS electroplating laborer Division of Trauma, Critical Care, and Acute Care Surgery [id number] Elda Emmanuel MD - 05/03/2014 3:49 AM PST EMERGENCY GENERAL SURGERY ICU PROGRESS NOTE: Attending Physician: Jf Wiseman MD 05/03/2014 ID: Mackenzie Hartley is a 58 year old female with COPD, Crohn's disease, chronic pain, and coagulopa thy resulting in splenic artery thrombosis while anticoagulated with warfarin transferred to [facility] from [facility] for management of retroperitoneal bleed. She is [...] perfused, pitting edema Lines: Port, Power PICC, Wlof, DHT LABS: Chemistries Recent Labs 05/01/14 0245 [...] transferred to [facility] from [facility] for management of retroperitoneal bleed. 1. Neuro: [...] this patient encounter. Elda Glez MD Pager [phone] Plastic Surgery R2 [facility] Diagnoses: 555.2 Crohn's disease [...] - TF at goal, + BM, Dysphagia: GUARD MUSEUM following- remains NPO Anasarca: compression socks,. Goal [...] Call team 01/11 for questions: Team Pager [phone] ATTENDING ADDENDUM: I saw and examined Mackenzie [...] Marge Harris PA-C. 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 She is [...] transferred to [facility] from [facility] for management of retroperitoneal bleed. 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 She is [...] transferred to [facility] from [facility] for management of retroperitoneal bleed. Overall, she is improving. However, remains tachycardic with leukocytosis - WBC [address] 05/01 showed - moderate ascites and pleural effusions and hematoma. Neuro: dilaudid IV PRN Speech: following continue daily to eval swallow CV: HD stable L NAPHTHALENE OPERATOR PSA resolved Continue IV lasix today 20 [...] acute care hospitalization Jean-Claude Albrecht D.M.D., M.D. [facility] [place] [address] [place] [facility] [place] [address] Jf Jones MD - 04/30/2014 11:08 AM [...] at referring hospital. She was transferred to [facility] fo r active hemorrhage and underwent [...] malnutrition: - pulled DHT- refusing replacement. Await GUARD MUSEUM eval if passes swallow will give chance to prove adequate po intake. Expect will require TFs again Dysphagia: await GUARD MUSEUM eval today. Cont meds and feed via [...] Call team 01/11 for questions: Team Pager [phone] ATTENDING ADDENDUM: I saw and examined Mackenzie [...] Marge Harris PA-C. 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 She is [...] transferred to [facility] from [facility] for management of retroperitoneal bleed. Overall, she is improving. However, remains tachycardic with leukocytosis -- difficult to t ease out if this is secondary to asplenia. Will obtain CT abd pelvis today to clarify. Neuro: dilaudid IV PRN and intermittent versed for sedation CV: HD stable L NAPHTHALENE OPERATOR PSA resolved Pulm: titrate to O2 >92% [...] Hannah MD General Surgery Resident, R3 Pager [phone] [facility] [address] [place] [address] Aravind Morales MD - 04/29/2014 11:43 AM PSTICU Attending: I saw and examined Mackenzie Hartley ([id number]) with Erin Christensen PA-C on 04/29/14 and [...] documented by valentin HASTINGS. Aravind Massey MD Ice Cream Truck Driver Trauma, Critical Care & Acute Care Surgery [...] at referring hospital. She was transferred to [facility] fo r active hemorrhage. Hospital Day [...] resolving cont current H2O via DHT Dysphagia: GUARD MUSEUM consulted, ice chips only. Cont meds and [...] Call team 01/11 for questions: Team Pager [phone] Chelly Blum MD,M PH - 04/28/2014 3:03 [...] at referring hospital. She was transferred to [facility] fo r active hemorrhage. Hospital Day [...] Hyernatremia: resolving, reduce H2O to 30ml/hr Dysphagia: GUARD MUSEUM consulted, ice chips only. 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 She is s/p ex lap, splenectomy, and packing with lap pads at OSH and from reopening of laparotomy, evacua tion of 2-3 L of intraabdominal hematoma, closure of open abdomen SUBJECTIVE: Extubated, neurologically doing much better. 3 L NC Underwent successful thrombin injection of L NAPHTHALENE OPERATOR pseudoaneurysm by IR 04/26 MEDICATIONS: Current facility-administered [...] transferred to [facility] from [facility] for management of retroperitoneal bleed. Neuro: dilaudid IV PRN and intermittent versed for sedation CV: HD stable Per vascular: arterial duplex of L NAPHTHALENE OPERATOR to assess for stability of PSA shows [...] Hannah MD General Surgery Resident, R3 Pager [phone] [facility] [address] [address] Xin Irizarry M D - 04/27/2014 11:55 [...] imaging and laboratory study results EPIC DEPARTMENT: [id number] - [facility] Place of Service: - Inpatient Date of Service: 04-27-2014 Modifiers: GC - Resident Involved Suggested CPT: 19882 - Initial, Comp; Mod complex 50 min XIN AGEE MD [facility] [address] [place] [address] wRudy powers Do - 04/27/2014 11:55 AM PST Hematology Consult Progress Note Primary Service: EGS Primary Attending: Jf Wiseman MD Hospital Length of Stay: 4 Interval Events: - extubated - thrombin injection to NAPHTHALENE OPERATOR pseudoaneurysm - heparin gtt started last night [...] [facility] Internal [facility] PGY3 Pager [phone] Mirela Josue MD - 04/27/2014 10:49 AM [...] underwent successful thrombin injection of the left NAPHTHALENE OPERATOR pseudoaneurysm by IR last night. Heparin restarted [...] ultraso und guided thrombin injection of left NAPHTHALENE OPERATOR pseudoanuerysm. Will order arterial duplex of left NAPHTHALENE OPERATOR to assess for stability of pseudoaneurysm Monitor [...] - hemorrhage vs HCAP LUCY MARKS MD [facility] [address] [place] [address] This assessment and plan was formulated both independently and in conjunction with the [facility] ular Surgery Team as well as the attending provider of record above regarding management of this patient and their medical issues. It is accurate to the best of my knowledge, and is s ubject to modification based on clinical developments, new data, or final imaging results. [facility] staff I saw and evaluated the patient. I agree with the findings and the plan of care as jannie hair in the resident s note. Left femoral pseudoaneurysm appears resolved. Stable from [facility] standpoint. No further imaging required unless clinical status changes. Mirela Thompson M.D. [facility] Vascular Surgery [address] [facility] [place] [address] Email: [email or web address] Jf Jones MD - 04/27/2014 8:03 AM [...] at referring hospital. She was transferred to [facility] fo r active hemorrhage. Hospital Day [...] H2O Hyernatremia: water 100ml/hr via DHT Dysphagia: GUARD MUSEUM consulted, ice chips only JULIANE: ATN from [...] Call team 01/11 for questions: Team Pager [phone] ATTENDING ADDENDUM: I saw and examined Mackenzie [...] Erin Christensen PA-C. Jf Wiseman MD FACS electroplating laborer Division of Trauma, Critical Care, and Acute Care Surgery [id number] ankerElda MD - 04/27/2014 4:52 AM PST EMERGENCY GENERAL SURGERY ICU PROGRESS NOTE: Attending Physician: Jf Wiseman MD 04/27/2014 ID: Mackenzie Hartley is a 58 year old female with COPD, Crohn's disease, chronic pain, and coagulopa thy resulting in splenic artery thrombosis while anticoagulated with warfarin transferred to [facility] from [facility] for management of retroperitoneal bleed. She is [...] HR EVENTS: - Incidentally found to have NAPHTHALENE OPERATOR pseudoaneurysm, injected with thrombin by IR - [...] transferred to [facility] from [facility] for management of retroperitoneal bleed. Neuro: oxy [...] this patient encounter. Elda Glez MD Pager [phone] Plastic Surgery R2 [facility] Diagnoses: 555.2 Crohn's disease [...] Attending:Dr. Lenny Calhoun MD (Fellow)/pager: Dr. Vang [phone] Medications Procedure Meds: Dilaudid IV 0.5mg Midazolam [...] at referring hospital. She was transferred to [facility] fo r active hemorrhage. 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 She is [...] transferred to [facility] from [facility] for management of retroperitoneal bleed. Neuro: dilaudid [...] Hannah MD General Surgery Resident, R3 Pager [phone] [facility] & [address] [place] [address] Nithya Andres MD - 04/25/2014 6:40 AM PSTTSICU Attending 04/25/14 58 yo woman critically ill with complex surgical and medical history, transferred to [facility] w ith intraabdominal and retroperitoneal hemorrhage 2 [...] uil X 1 - renal at 1800 JUILANE: r/t hemorrhagic shock. 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 She is [...] 20 mg, 20 mg, feeding tube, BID, Magre Harris PA-C heparin 10 unit/mL IV flush [...] transferred to [facility] from [facility] for management of retroperitoneal bleed. Neuro: dilaudid [...] Hannah MD General Surgery Resident, R3 Pager [phone] [facility] [place] [address] [facility] [address] ich Redding MD - 04/24/2014 9:21 AM [...] extubate Initial surgical contact: Miladis at pager [phone] Nithya Andres MD - 04/24/2014 5:25 AM [...] Call team 01/11 for questions: Team Pager [phone] Angeles Acevedo MD - 04/24/2014 2:04 AM PST [facility] DEPARTMENT OF SURGERY EGS Consult Progress Note Division of Trauma and Critical Care ID: Mackenzie Hartley is a 58 year old female with COPD, Crohn's disease, chronic pain, and 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 She is [...] transferred to [facility] from [facility] for management of retroperitoneal bleed. She is [...] Hannah MD General Surgery Resident, R3 Pager [phone] [facility] [place] [address] [place] [address] Rudy Parker M D - 04/23/2014 5:07 PM PSTBRIEF INTERVENTIONAL RADIOLOGY PROCEDURE NOTE DATE: 04/23/2014 5:07 PM PROCEDURE: Pelvic angiography with glue embolization PRE-PROCEDURE DIAGNOSIS: Retroperitoneal hematoma POST-PROCEDURE DIAGNOSIS: Same IR STAFF: Lenny IR FELLOW: Ciera ACCESS: L NAPHTHALENE OPERATOR MEDICATIONS: Fentanyl IV 150 mcg Midazolam IV [...] [facility] | [address] | [place] [address] | | | SERVICESJANELL | [address] [...] MARILYN | [address] | [place], [place] | | | [facility] | [facility] | [address] | | | TESTS | | | [...] [facility] | [address] | [place] [address] | | | SERVICES, CORE | PARK [...] [facility] | [address] | [place] [address] | | | SERVICES, CORE | BERTRAM [...] | | | LABORATORY | | | FINNISH | | | SERVICES, | | | [...] | + + + + + | [facility] | [address] [facility] | [place] [address] | | | SERVICES, CORE | BERTRAM [...] [facility] | [address] | [place], [place] | | | OSCAR POINT OF CARE | [address] | [address] | | | TESTS | | | [...] - [facility] | [address] | [place], [place] | | | OSCAR POINT OF CARE | [address] | [address] | | | TESTS | | | [...] [facility] | [address] | [place] [address] | | | SERVICES, CORE | BERTRAM [...] [facility] | [address] | [place] [address] | | | SERVICES, CORE | PARK [...] | | | LABORATORY | | | FINNISH | | | SERVICES, | | | [...] [facility] | [address] | [place] [address] | | | JANELL SHARP | [address] [...] [facility] | [address] | [place] [address] | | | SERVICES, JANELL | BERTRAM [...] MARILYN | [address] | [place], [place] | | | [facility] | [facility] | [address] | | | TESTS | | | [...] [facility]ERS | [address] | [place], [place] | | | OSCAR POINT OF CARE | [address] | [address] | | | TESTS | | | [...] [facility] | [address] | [place] [address] | | | SERVICES, CORE | PARK [...] | + + + + + | [facility] | [address] | [place] [address] | | | SERVICES, CORE | BERTRAM [...] | | | LABORATORY | | | FINNISH | | | SERVICES, | | | [...] [facility] | [address] [facility] | [place] [address] | | | SERVICES, CORE | PARK [...] [facility] | [address] | [place] [address] | | | SERVICESJANELL | [address] [...] - [facility] | [address] | [place], [place] | | | OSCAR POINT OF CARE | [address] | [address] | | | TESTS | | | [...] SANDERS | [address] | [place], [place] | | | [facility] [place] | [address] | [address] | | | TESTS | | | [...] MAR[facility] | [address] | [place], [place] | | | OSCAR POINT OF CARE | [address] | [address] | | | TESTS | | | [...] - DAVID[facility] | [address] | [place], [place] | | | OSCAR POINT OF CARE | [address] | [address] | | | TESTS | | | [...] [facility] | [address] [address] | [place] [address] | | | SERVICES, CORE | PARK [...] [facility] | [address] | [place] [address] | | | SERVICES, CORE | PARK [...] | | | LABORATORY | | | FINNISH | | | SERVICES, | | | [...] [facility] | [address] | [place] [address] | | | JANELL SHARP | BERTRAM [...] [facility] | [address] | [place] [address] | | | SERVICES, JANELL | BERTRAM [...] [facility] | [address] | [place], [place] | | | [facility] | [facility] | [address] | | | TESTS | | | [...] SANDERS | [address] | [place], [place] | | | [facility] | [facility] | [address] | | | TESTS | | | [...] MARILYN | [address] | [place], [place] | | | [facility] | [address] | [address] | | | TESTS | | | [...] | + + + + + | [facility] | [address] | [place] [address] | | | SERVICES, CORE | BERTRAM [...] [facility] | [address] | [place] [address] | | | JANELL SHARP | BERTRAM [...] | | | LABORATORY | | | FINNISH | | | SERVICES, | | | [...] [facility] | [address] | [place] [address] | | | SERVICES, CORE | PARK [...] [facility] | [address] | [place] [address] | | | SERVICES, CORE | BERTRAM [...] S[facility]ERS | [address] | [place], [place] | | | [facility] | [address] | [address] | | | TESTS | | | [...] [facility] | [address] | [place], [place] | | | [facility] | [address] | [address] | | | TESTS | | | [...] | + + + + + | [facility] | [address] | [place] [address] | | | SERVICES, CORE | BERTRAM [...] [facility] | [address] | [place] [address] | | | SERVICES, CORE | BERTRAM [...] | | | LABORATORY | | | FINNISH | | | SERVICES, | | | [...] | + + + + + | [facility] | [address] | [place] [address] | | | SERVICES, CORE | BERTRAM [...] | + + + + + | [facility] | [address] [facility] | [place] [address] | | | SERVICES, CORE [...] SANDERS | [address] | [place], [place] | | | [facility] | [facility] | [address] | | | TESTS | | | [...] - [facility] | [address] | [place], [place] | | | [facility] | [facility] | [address] | | | TESTS | | | [...] [facility] | [address] | [place] [address] | | | ARON, CORE | BERTRAM [...] [facility] | [address] | [place] [address] | | | SERVICES, CORE | PARK [...] | | | LABORATORY | | | FINNISH | | | SERVICES, | | | [...] [facility] | [address] | [place] [address] | | | SERVICES, CORE | BERTRAM [...] | + + + + + | [facility] | [address] | [place] [address] | | | SERVICES, CORE | BERTRAM [...] [facility] | [address] | [place], [place] | | | [facility] | [address] | [address] | | | TESTS | | | [...] | + + + + + | [facility] | [address] | [place] [address] | | | ARON, JANELL | BERTRAM [...] SANDERS | [address] | [place], [place] | | | [facility] | [facility] | [address] | | | TESTS | | | [...] MARILYN | [address] | [place], [place] | | | [facility] | [address] | [address] | | | TESTS | | | [...] | + + + + + | [employer] | [address] | [place] [address] | | | SERVICES, CORE | BERTRAM [...] [facility] | [address] | [place] [address] | | | ARON, JANELL | PARK [...] | | | LABORATORY | | | FINNISH | | | SERVICES, | | | [...] [facility] | [address] | [place] [address] | | | SERVICES, CORE | PARK [...] [facility] | [address] | [place] [address] | | | SERVICES, CORE | PARK [...] LABORATORY | [address] | [place] [address] | | | SERVICES, CORE | PARK [...] [facility] | [address] | [place] [address] | | | SERVICES, CORE | BERTRAM [...] [facility] | [address] | [place] [address] | | | SERVICES, CORE | PARK [...] | | | LABORATORY | | | FINNISH | | | SERVICES, | | | [...] | + + + + + | [facility] | [address] | [place] [address] | | | SERVICES, CORE | PARK [...] | + + + + + | [facility] | [address] | [place] [address] | | | SERVICES, CORE | BERTRAM [...] + + + + | [facility] | [address] | [place] [address] | | | [facility] | Ellen [...] [facility] | [address] | [place] [address] | | | SERVICES, JANELL | PARK [...] [facility] | [address] | [place] [address] | | | SERVICES, CORE | BERTRAM [...] [facility] | [address] | [place] [address] | | | SERVICES, CORE | BERTRAM [...] [facility] | [address] | [place] [address] | | | SERVICES, CORE | PARK [...] | | | LABORATORY | | | FINNISH | | | SERVICES, | | | [...] [facility] | [address] | [place] [address] | | | SERVICES, CORE [...] | + + + + + | [facility] | [address] | [place] [address] | | | SERVICES, CORE | PARK [...] [facility] | [address] | [place] [address] | | | SERVICES, CORE | PARK [...] | + + + + + | [facility] | [address] | [place] [address] | | | SERVICES, CORE | BERTRAM [...] [facility] | [address] | [place] [address] | | | SERVICES, JANELL | BERTRAM [...] [facility] | [address] | [place] [address] | | | SERVICES, JANELL | BERTRAM [...] [facility] | [address] | [place], [place] | | | [facility] | [address] | [address] | | | TESTS | | | [...] [facility] | [address] | [place] [address] | | | SERVICES, CORE | PARK [...] [facility] | [address] | [place] [address] | | | SERVICES, CORE | PARK [...] | | | LABORATORY | | | FINNISH | | | SERVICES, | | | [...] | + + + + + | [facility] | [address] | [place] [address] | | | SERVICES, CORE | PARK [...] | + + + + + | [facility] | [address] [address] | [place] [address] | | | SERVICES, CORE | PARK [...] [facility] | [address] | [place] [address] | | | JANELL SHARP | PARK [...] | | | LABORATORY | | | FINNISH | | | SERVICES, | | | [...] [facility] | [address] | [place] [address] | | | SERVICES, CORE | PARK [...] | | | LABORATORY | | | FINNISH | | | SERVICES, | | | [...] + + | [facility] | [address] | [place] [address] | | | JANELL SHARP | BERTRAM [...] [facility] | [address] | [place], [place] | | | THERAPY | [facility] | [address] | | + + + + + [...] [facility] | [address] | [place], [place] | | | THERAPY | [address] | [address] | | + + + + + [...] [facility] | [address] | [place] [address] | | | SERVICES, CORE | PARK [...] | + + + + + | [facility] | [address] | [place] [address] | | | SERVICES, CORE | BERTRAM [...] [facility] | [address] | [place] [address] | | | SERVICES, JANELL | BERTRAM [...] | | | LABORATORY | | | FINNISH | | | SERVICES, | | | [...] | + + + + + | [facility] | [address] | [place] [address] | | | SERVICES, CORE | PARK [...] | + + + + + | [facility] | [address] | [place] [address] | | | SERVICES, CORE | BERTRAM [...] + + + + + | [facility] | [address] | [place], [place] | | | CARDIOLOGY | [address] | [address] | | + + + + + X-RAY PORTABLE CHEST 1 VIEW (05/02/2014 2:11 AM PST) + + + + + + | Component | Value | Ref Range | Performed | Pathologist | | | | | At | Signature | + + + + + + | X-RAY | EXAM: MA CHEST 1 VIEW | | | | [...] [facility] | [address] | [place] [address] | | | SERVICES, CORE | BERTRAM [...] S[facility]ERS | [address] | [place], [place] | | | [facility] | [address] | [address] | | | TESTS | | | [...] MARILYN | [address] | [place], [place] | | | [facility] | [facility] | [address] | | | TESTS | | | [...] | + + + + + | [facility] | [address] | [place] [address] | | | SERVICES, CORE | [address] | | | + + + + + X-RAY PORTABLE CHEST 1 VIEW (05/01/2014 3:37 AM PST) + + + + + + | Component | Value | Ref Range | Performed | Pathologist | | | | | At | Signature | + + + + + + | X-RAY | EXAM: MA CHEST 1 VIEW | | | | [...] Bilateral | | | | | | [id number] | | | | | | pleural [...] [facility] | [address] | [place] [address] | | | SERVICES, CORE | PARK [...] | + + + + + | [facility] | [address] | [place] [address] | | | SERVICES, JANELL | BERTRAM [...] | | | LABORATORY | | | FINNISH | | | SERVICES, | | | [...] [facility] | [address] | [place] [address] | | | SERVICES, CORE | PARK [...] [facility] | [address] | [place] [address] | | | JANELL SHARP | BERTRAM [...] [facility] | [address] | [place], [place] | | | [facility] | [address] | [address] | | | TESTS | | | [...] + + + | X-RAY | STUDY: MA CHEST 1 VIEW | | | | [...] [facility] | [address] | [place] [address] | | | SERVICES, CORE | PARK [...] [facility] | [address] | [place] [address] | | | SERVICES, JANELL | BERTRAM [...] [facility] | [address] | [place] [address] | | | SERVICES, CORE | BERTRAM [...] | | | LABORATORY | | | FINNISH | | | SERVICES, | | | [...] | + + + + + | [facility] | [address] | [place] [address] | | | SERVICES, CORE | BERTRAM [...] | | | LABORATORY | | | FINNISH | | | SERVICES, | | | [...] [facility] | [address] | [place] [address] | | | ARON, JANELL | BERTRAM [...] [facility] | [address] | [place], [place] | | | [facility] | [facility] | [address] | | | TESTS | | | [...] [facility] | [address] | [place] [address] | | | SERVICES, CORE | PARK [...] [facility] | [address] | [place] [address] | | | SERVICES, CORE | PARK [...] | | | LABORATORY | | | FINNISH | | | SERVICES, | | | [...] | + + + + + | [facility] | [address] | [place] [address] | | | SERVICES, CORE | BERTRAM [...] [facility] | [address] | [place] [address] | | | SERVICES, JANELL | BERTRAM [...] | + + + + + | [facility] | [address] | [place] [address] | | | [facility], JANELL | [address] | [...] [facility] | [address] | [place], [place] | | | [facility] | [facility] | [address] | | | TESTS | | | [...] [facility] | [address] | [place] [address] | | | SERVICES, CORE | PARK [...] [facility] | [address] | [place] [address] | | | SERVICES, CORE | PARK [...] [facility] | [address] | [place] [address] | | | SERVICES, CORE | PARK [...] [facility] | [address] | [place] [address] | | | SERVICES, CORE | PARK [...] | | | LABORATORY | | | FINNISH | | | SERVICES, | | | [...] | + + + + + | [facility] | [address] | [place] [address] | | | SERVICES, CORE | BERTRAM [...] | + + + + + | [facility] | [address] | [place] [address] | | | ARON, CORE | BERTRAM [...] [facility] | [address] | [place] [address] | | | JANELL SHARP | BERTRAM [...] | + + + + + | [facility] | [address] | [place] [address] | | | SERVICES, CORE | BERTRAM [...] [facility] | [address] | [place], [place] | | | [facility] | [facility] | [address] | | | TESTS | | | | + + + + + X-RAY ABD LTD FEEDING TUBE EVAL PORTABLE (04/27/2014 10:33 AM PST) + + + + + + | Component | Value | Ref Range | Performed | Pathologist | | | | | At | Signature | + + + + + + | X-RAY ABD | STUDY: MA ABD LTD | | | | | [...] | + + + + + | [facility] | [address] | [place] [address] | | | SERVICES, CORE | BERTRAM [...] | + + + + + | [facility] | [address] | [place] [address] | | | JANELL SHARP | BERTRAM [...] | + + + + + | [facility] | [address] | [place] [address] | | | SERVICES, CORE | BERTRAM [...] [facility] | [address] | [place] [address] | | | SERVICES, CORE | [address]ARK [...] | | | LABORATORY | | | FINNISH | | | SERVICES, | | | [...] + + | [facility] | [address] [address] | [place] [address] | | | SERVICES, CORE | BERTRAM [...] [facility] | [address] | [place] [address] | | | SERVICES, JANELL | BERTRAM [...] | + + + + + | [facility] | [address] | [place] [address] | | | SERVICES, CORE | BERTRAM [...] | + + + + + | [facility] | [address] | [place] [address] | | | SERVICES, CORE | PARK [...] | + + + + + | [facility] | [address] | [place] [address] | | | SERVICES, CORE | BERTRAM [...] [facility] | [address] | [place] [address] | | | SERVICES, CORE | PARK [...] | | | LABORATORY | | | FINNISH | | | SERVICES, | | | [...] | + + + + + | [facility] | [address] | [place] [address] | | | SERVICES, JANELL | BERTRAM [...] PRIMARY | | | | | | PROGRAM DEVELOPER: Rudy | | | | | | [...] [facility] | [address] | [place], [place] | | | [facility] | [address] | [address] | | | TESTS | | | [...] | + + + + + | [facility] | [address] | [place] [address] | | | SERVICES, CORE | BERTRAM [...] | | | | | | Kirstie Dunnellon | | | | + + + [...] [facility] | [address] | [place] [address] | | | SERVICES, JANELL | BERTRAM [...] [facility] | [address] | [place] [address] | | | SERVICES, CORE | BERTRAM [...] | + + + + + | [facility] | [address] | [place] [address] | | | SERVICES, CORE | BERTRAM [...] | + + + + + | [facility] | [address] | [place] [address] | | | SERVICES, CORE | PARK [...] [facility] | [address] | [place] [address] | | | SERVICES, CORE | PARK [...] | | | LABORATORY | | | FINNISH | | | SERVICES, | | | [...] + + | [facility] | [address] | [place] [address] | | | ARON, JANELL | BERTRAM [...] [facility] | [address] | [place] [address] | | | SERVICES, CORE | PARK [...] [facility] | [address] | [place] [address] | | | JANELL SHARP | PARK [...] - [facility] | [address] | [place], [place] | | | [facility] | [address] | [address] | | | TESTS | | | [...] | | | LABORATORY | | | FINNISH | | | SERVICES, | | | [...] | + + + + + | [facility] | [address] | [place] [address] | | | JANELL SHARP | BERTRAM [...] [facility] | [address] | [place], [place] | | | [facility] | [address] | [address] | | | TESTS | | | [...] [facility] | [address] | [place] [address] | | | SERVICES, CORE | BERTRAM [...] | + + + + + | [facility] | [address] | [place] [address] | | | SERVICES, CORE | [address] [...] + + + + | PRODUCT | [id number] | | [facility] | | | UNIT [...] + + + + | BLOOD | [id number] | | [facility] | | | PRODUCT [...] DEPARTMENT OF | [address] | [place] [address] | | | PATHOLOGY | [address] [...] + + + + | PRODUCT | [id number] | | [facility] | | | UNIT [...] + + + + | BLOOD | [id number] | | [facility] | | | PRODUCT [...] [facility] | [address] | [place] [address] | | | PATHOLOGY | [address] [...] | + + + + + | [facility] | [address] | [place] [address] | | | SERVICES, CORE | PARK [...] | + + + + + | [facility] | [address] | [place] [address] | | | SERVICES, CORE | [address] [...] | | | LABORATORY | | | FINNISH | | | SERVICES, | | | [...] [facility] | [address] | [place] [address] | | | JANELL SHARP | BERTRAM [...] [facility] | [address] | [place] [address] | | | SERVICES, CORE | PARK [...] [facility] | [address] | [place] [address] | | | SERVICES, CORE | PARK [...] [facility] | [address] | [place] [address] | | | SERVICES, CORE | PARK [...] | [facility] | [address] | [place] [address] | | | SERVICES, JANELL | BERTRAM [...] [facility] | [address] | [place], [place] | | | [facility] | [facility] | [address] | | | TESTS | | | [...] + + + | [facility] | [address] | [place], [place] | | | [facility] | [address] | [address] | | | TESTS | | | [...] [facility] | [address] | [place] [address] | | | SERVICES, CORE | PARK [...] | + + + + + | [facility] | [address] | [place] [address] | | | JANELL SHARP | BERTRAM [...] [facility] | [address] | [place] [address] | | | SERVICES, CORE | PARK [...] [facility] | [address] | [place] [address] | | | JANELL SHARP | [address] | | | + + + + + X-RAY PORTABLE CHEST 1 VIEW (04/24/2014 5:32 AM PST) + + + + + + | Component | Value | Ref Range | Performed | Pathologist | | | | | At | Signature | + + + + + + | X-RAY | STUDY: MA CHEST 1 VIEW | | | | [...] | + + + + + | [facility] | [address] | [place] [address] | | | SERVICES, JANELL | [address] [...] | | | LABORATORY | | | FINNISH | | | SERVICES, | | | [...] [facility] | [address] | [place] [address] | | | SERVICES, CORE | PARK [...] | + + + + + | [facility] | [address] | [place] [address] | | | SERVICES, CORE | PARK [...] | + + + + + | [facility] | [address] | [place] [address] | | | SERVICES, CORE | BERTRAM [...] [facility] | [address] | [place], [place] | | | THERAPY | [address] | [address] | | + + + + + [...] + + | [facility] | [address] | [place], [place] | | | THERAPY | [address] | [address] | | + + + + + [...] | | | LABORATORY | | | FINNISH | | | SERVICES, | | | [...] [facility] | [address] | [place] [address] | | | JANELL SHARP | [address]ERTRAM [...] LABORATORY | [address] | [place] [address] | | | SERVICES, CORE [...] | + + + + + | [facility] | [address] | [place] [address] | | | SERVICES, CORE | BERTRAM [...] [facility] | [address] | [place] [address] | | | SERVICES, CORE | PARK [...] | + + + + + | [facility] | [address] | [place] [address] | | | SERVICES, CORE | BERTRAM [...] [facility] | [address] | [place] [address] | | | SERVICES, CORE | PARK [...] [facility] | [address] | [place] [address] | | | SERVICES, CORE | PARK [...] | | | LABORATORY | | | FINNISH | | | SERVICES, | | | [...] | + + + + + | [facility] | [address] | [place] [address] | | | SERVICES, CORE | BERTRAM [...] [facility] | [address] | [place] [address] | | | ARON, JANELL | BERTRAM [...] [facility] | [address] | [place], [place] | | | [facility] | [facility] | [address] | | | TESTS | | | [...] PRIMARY | | | | | | PROGRAM DEVELOPER: Rudy | | | | | | oFrtino Vang | | | | | | [...] 5 | | | | | | [place]andan vascular sheath | | | | | [...] | | | | for a 5 [place]andan | | | | | | IMAcatheter. [...] | | | | artery. A 3 [place]andan | | | | | | microcatheterwas [...] + + | [facility] | [address] | [place], [place] | | | CARDIOLOGY | [address] | [address] | | + + + + + [...] + + + + | PRODUCT | [id number] | | [facility] | | | UNIT [...] + + + + | BLOOD | [id number] | | [facility] | | | PRODUCT [...] [facility] | [address] | [place] [address] | | | PATHOLOGY | [address] [...] + + + + | PRODUCT | [id number] | | [facility] | | | UNIT [...] + + + + | BLOOD | [id number] | | [facility] | | | PRODUCT [...] + + + + | [facility] | [address] | [place] [address] | | | PATHOLOGY | [address] [...] + + + + | PRODUCT | [id number] | | [facility] | | | UNIT [...] + + + + | BLOOD | [id number] | | [facility] | | | PRODUCT [...] [facility] | [address] | [place] [address] | | | PATHOLOGY | [address] [...] + + + + | PRODUCT | [id number] | | [facility] | | | UNIT [...] + + + + | BLOOD | [id number] | | [facility] | | | PRODUCT [...] DEPARTMENT OF | [address] | [place] [address] | | | PATHOLOGY | [address] [...] + + + + | PRODUCT | [id number] | | [facility] | | | UNIT [...] + + + + | BLOOD | [id number] | | [facility] | | | PRODUCT [...] DEPARTMENT | [address] | [place] [address] | | | PATHOLOGY | [address] [...] + + + + | PRODUCT | [id number] | | [facility] | | | UNIT [...] + + + + | BLOOD | [id number] | | [facility] | | | PRODUCT [...] DEPARTMENT OF | [address] | [place] [address] | | | PATHOLOGY | [address] | | | + + + + + X-RAY PORTABLE CHEST 1 VIEW (04/23/2014 11:41 AM PST) + + + + + + | Component | Value | Ref Range | Performed | Pathologist | | | | | At | Signature | + + + + + + | X-RAY | EXAM: MA CHEST 1 VIEW | | | | [...] + + + + | PRODUCT | [id number] | | [facility] | | | UNIT [...] + + + + | BLOOD | [id number] | | [facility] | | | PRODUCT [...] DEPARTMENT OF | [address] | [place] [address] | | | PATHOLOGY | [address] [...] + + + + | PRODUCT | [id number] | | [facility] | | | UNIT [...] + + + + | BLOOD | [id number] | | [facility] | | | PRODUCT [...] DEPARTMENT OF | [address] | [place] [address] | | | PATHOLOGY | [address] [...] + + + + | PRODUCT | [id number] | | [facility] | | | UNIT [...] + + + + | BLOOD | [id number] | | [facility] | | | PRODUCT [...] [facility] DE[facility] | [address] | [place] [address] | | | PATHOLOGY | [address] [...] + + + + | PRODUCT | [id number] | | [facility] | | | UNIT [...] + + + + | BLOOD | [id number] | | [facility] | | | PRODUCT [...] + + + + | [facility] | [address] | [place] [address] | | | PATHOLOGY | [address] [...] + + + + | PRODUCT | [id number] | | [facility] | | | UNIT [...] + + + + | BLOOD | [id number] | | [facility] | | | PRODUCT [...] [facility] DEPARTMENT | [address] | [place] [address] | | | PATHOLOGY | [address] [...] + + + + | PRODUCT | [id number] | | [facility] | | | UNIT [...] + + + + | BLOOD | [id number] | | [facility] | | | PRODUCT [...] + + + + | [facility] | [address] | [place] [address] | | | PATHOLOGY | [address] [...] + + + + | PRODUCT | [id number] | | [facility] | | | UNIT [...] + + + + | BLOOD | [id number] | | [facility] | | | PRODUCT [...] [facility] DEPARTMENT | [address] | [place] [address] | | | PATHOLOGY | [address] [...] + + + + | PRODUCT | [id number] | | [facility] | | | UNIT [...] + + + + | BLOOD | [id number] | | [facility] | | | PRODUCT [...] + + + + | [facility] | [address] | [place] [address] | | | PATHOLOGY | [address] [...] + + + + | PRODUCT | [id number] | | [facility] | | | UNIT [...] + + + + | BLOOD | [id number] | | [facility] | | | PRODUCT [...] [facility] DEPARTMENT | [address] | [place] [address] | | | PATHOLOGY | [address] [...] + + + + | PRODUCT | [id number] | | [facility] | | | UNIT [...] + + + + | BLOOD | [id number] | | [facility] | | | PRODUCT [...] + + + + | [facility] | [address] | [place] [address] | | | PATHOLOGY | [address] [...] + + + + | PRODUCT | [id number] | | [facility] | | | UNIT [...] + + + + | BLOOD | [id number] | | [facility] | | | PRODUCT [...] [facility] DEPARTMENT | [address] | [place] [address] | | | PATHOLOGY | [address] [...] + + + + | PRODUCT | [id number] | | [facility] | | | UNIT [...] + + + + | BLOOD | [id number] | | [facility] | | | PRODUCT [...] DEPARTMENT OF | [address] | [place] [address] | | | PATHOLOGY | [address] [...] + + + + | PRODUCT | [id number] | | [facility] | | | UNIT [...] + + + + | BLOOD | [id number] | | [facility] | | | PRODUCT [...] [facility] DEPARTMENT | [address] | [place] [address] | | | PATHOLOGY | [address] [...] + + + + | PRODUCT | [id number] | | [facility] | | | UNIT [...] + + + + | BLOOD | [id number] | | [facility] | | | PRODUCT [...] + + + + | [facility] | [address] | [place] [address] | | | PATHOLOGY | [address] [...] [facility] | [address] | [place] [address] | | | SERVICES, CORE | PARK [...] [facility] | [address] | [place] [address] | | | SERVICES, CORE | PARK [...] most patients with mech. valves (2.5 | [facility], CORE | | - 3.5) [...] [facility] | [address] | [place] [address] | | | JANELL SHARP | [address] [...] | | | LABORATORY | | | FINNISH | | | SERVICES, | | | [...] [facility] | [address] | [place] [address] | | | SERVICES, CORE | PARK [...] [facility] | [address] | [place] [address] | | | SERVICES, CORE | PARK [...] [facility] | [address] | [place] [address] | | | SERVICES, CORE | PARK [...] [facility] | [address] | [place] [address] | | | JANELL SHARP | [address] [...] [facility] | [address] | [place], [place] | | | OSCAR POINT OF CARE | [address] | [address] | | | TESTS | | | [...] | + + + + + | [facility] | [address] | [place] [address] | | | AORN, | [address] | | | | [...] [facility] | [address] | [place] [address] | | | SERVICES, | [address] [...] + + + + | PRODUCT | [id number] | | [facility] | | | UNIT [...] + + + + | BLOOD | [id number] | | [facility] | | | PRODUCT [...] + + + + | [facility] | [address] | [place] [address] | | | PATHOLOGY | [address] [...] + + + + | PRODUCT | [id number] | | [facility] | | | UNIT [...] + + + + | BLOOD | [id number] | | [facility] | | | PRODUCT [...] DEPARTMENT OF | [address] | [place] [address] | | | PATHOLOGY | [address] [...] + + + + | PRODUCT | [id number] | | [facility] | | | UNIT [...] + + + + | BLOOD | [id number] | | [facility] | | | PRODUCT [...] + + + + | [facility] | [address] | [place] [address] | | | PATHOLOGY | [address] [...] + + + + | PRODUCT | [id number] | | [facility] | | | UNIT [...] + + + + | BLOOD | [id number] | | [facility] | | | PRODUCT [...] DEPARTMENT OF | [address] | [place] [address] | | | PATHOLOGY | [address] [...] + + + + | PRODUCT | [id number] | | [facility] | | | UNIT [...] + + + + | BLOOD | [id number] | | [facility] | | | PRODUCT [...] + + + + | [facility] | [address] | [place] [address] | | | PATHOLOGY | [address] [...] + + + + | PRODUCT | [id number] | | [facility] | | | UNIT [...] + + + + | BLOOD | [id number] | | [facility] | | | PRODUCT [...] OF | [address] | [place] [address] | | | PATHOLOGY | [address] [...]
--- OUTSIDE RECORDS SUMMARY | ~2019-02-11 | XMS | Encounter Summary ---
Demographics + + + | Address | [address] | | | [place] [address] | + + + | Home Phone [...] [place], [place] | | | | | [address] | | + + + + + | Cami Sawyer | ECON | Unknown | | + + + + + Care Team Providers + +------+ + | Care Pr Intern Name | Role | Phone | + [...] [address] | | | | | | [place], [place] | | | | | | [address] | | | +--------+ + + + [...]
--- OUTSIDE RECORDS SUMMARY | ~2019-02-11 | XMS | Encounter Summary ---
Demographics + + + | Address | [address] | | | [place] [address] | + + + | Home Phone [...] [place], [place] | | | | | [address] | | + + + + + | Cami Sawyer | ECON | Unknown | | + + + + + Care Team Providers + +------+ + | Care Industrial Health And Safety Professor Name | Role | Phone | [...] | | 2015 | | Center at [facility] [address] | [address] | | | | | Tomasz Menezes | [facility] | | | | | Mailcode: [place] | [place] [address] | | | | | [facility] and | [phone] | | | | | [place] [address] | | | | | | [place], [place] | | | | | | [address] | | | | | | [phone] | | | +--------+ + + + [...]
[~2019-02-11 19:21] MED LIST changes: +BACTRIM DS TAB1 EACH PO; +FENOFIBRATE54 MG PO; +GABAPENTIN600 MG PO; +MACROBID 100 M100 MG PO; +NITROFURANTOIN50 MG PO; +PREDNISONE1 MG PO
--- NOTE | 2019-02-11 23:30 | NUR ---
PT TO ROOM 107 FROM ER VIA STRETCHER. PT ABLE TO SLIDE FROM STRETCHER TO BED WITH NO ASSISTANCE. ADMISSION COMPLETE. ASSESSMENT COMPLETE. MEDS GIVEN PER MD ORDER. PT HAS MEEHAN CATH DRAINING CLOUDY YELLOW URINE. COLOSTOMY LLQ DRAINING THICK BROWN STOOL. PT DROWSY BUT WILL AROUSE TO VOICE. PT ORIENTED TO ROOM AND CALL LIGHT. NO FURTHER QUESTIONS AT THIS TIME, CALL LIGHT WITHIN REACH.
--- NOTE | 2019-02-12 00:20 | NUR ---
CALL LIGHT ANSWERED. PT REQUESTING PRN MORPHINE FOR 4/10 JOINT AND GENERAL PAIN, GIVEN PER MD ORDER. SOME DRY HEAVES. ICE CHIPS AND H2O GIVEN PER PT REQUEST. CALL LIGHT IN REACH.
--- NOTE | 2019-02-12 03:35 | NUR ---
CALL LIGHT ANSWERED. PT REQUESTING SOMETHING FOR NAUSEA. PRN GIVEN PER MD ORDER. PT TEARFUL AND STATES SHE JUST WANTS TO FEEL BETTER. ALSO GAVE PRN TYLENOL FOR ELEVATED TEMP, REMOVED EXTRA BLANKETS, AND TURNED THERMOSTAT IN ROOM DOWN. ICE PACK GIVEN FOR C/O HEADACHE. CALL LIGHT IN REACH.
--- NOTE | 2019-02-12 04:06 | NUR ---
LAB CALLED WITH CRITICAL MAGNESIUM LEVEL. CALLED, NEW ORDERS RECEIVED.
--- NOTE | 2019-02-12 06:41 | NUR ---
PT ALERT AND ORIENTED X 3. ABLE TO BURP OWN COLOSTOMY. MEDICATED WITH ORAL PRN FOR PAIN, PT SWALLOWED WITHOUT DIFFICULTY. MAG INFUSING WITHOUT ISSUE. MEEHAN DRAINING QS, CLOUDY YELLOW URINE. WARM WASHCLOTH PROVIDED. NEW ICE PACK FOR PT'S NECK TO HELP WITH HEADACHE. ASSESSMENT COMPLETE. NO OTHER REQUESTS AT THIS TIME. CALL LIGHT IN REACH.
--- NOTE | 2019-02-12 07:19 | NUR ---
REPORT RECEIVED FROM LUKASZ CLEMENS. PT RESTING IN BED ON RIGHT SIDE WITH EYES CLOSED. RESPIRATIONS EVEN AND UNLABORED. BED RAILS UP. CALL LIGHT WITHIN REACH.
--- NOTE | 2019-02-12 08:00 | NUR ---
PATIENT REFUSED AM CARE. NO OTHER NEEDS. CALL BUTTON IN REACH.
--- NOTE | 2019-02-12 08:30 | NUR ---
MORNING ASSESSMENT AND MEDICATIONS DUE. PT RESTING ON RIGHT SIDE WITH EYES CLOSED, PEACEFUL AND RELAXED APPERANCE. PT AWAKENS TO LIGHT TOUCH AND VOICE. PT ORINETED TO ALL, PINPOINT PUPILS. TREMORS BEGIN AND PT STATES SHE IS DRY HEAVING "ALL THE TIME." DRY HEAVES BEGIN. NO EMESIS NOTED. PT STATES "I NEED A PUSH OF PHENEGRAN AND MORPHIN NOW, AND PUSH IT IN FAST." SEE MAR FOR MEDICATIONS GIVEN. ASSESSMENT DONE. PT REPORTS NUMBNESS IN LEFT LEG BUT DENIES OTHER NUMBNESS. LEGS WEAK. LUNG SOUNDS CLEAR. VITALS TAKEN. PT DRIFTS OFF TO SLEEP, RELAXED APPEARANCE. BED RAILSUP. CALL LIGHT WITHIN REACH.
--- NOTE | 2019-02-12 10:31 | NUR ---
PT RESTING COMFORTABLY WITH EYES CLOSED. NO TREMORS OR OTHER MOVEMENTS NOTED.. RESPIRATIONS EVEN AND UNLABORED. PTS ARRIVED. PT AWAKENS TO VOICES AND LIGHT TOUCH. PT BEGINS WITH TREMORS AND DRY HEAVES. PT DRINKS A CUP OF WATER AND ASKS FOR WATER REFILL. ICE WATER REFILLED. PT REPORTS "SEVERE PAIN AND NAUSEA." STATING "I NEED MORE THAN 2MG OF MORPHINE, I JUST WANT 20MG BY FAST PUSH." UPDATED ON PT CONDITION AND PLAN OF CARE INCLUDING IV ANTIBIOTIC THERAPY. VERBALIZES UNDERSTNDING AND STATES HIS QUESTIONS HAVE BEEN ANSWERED. EXPRESSES CONCERN ABOUT PTS PAIN STATING "SHE USUALLY TAKES FOUR TIMES THAT AMOUNT OF MEDICATION." PT AND ASKED IF PT HAS A PAIN CONTRACT OR SEES A DOCTOR FOR PAIN CONTROL. PT STATES "NO, I DONT' WANT TO DO THAT BECAUSE THEY MAKE YOU STOP TAKING OPIOIDS AND I WANT MORE OPIOIDS." STATES "THEY JUST MAKE YOU STOP ALL THE OPIOIDS AND SHE JUST NEEDS TO BE KNOCKED OUT." OSTOMY BAG EMPTIED OF 200ML SOFT BROWN/GREEN STOOL. PT STATES THIS IS NORMAL BUT "MAYBE A LITTLE MORE LOOSE." PT REQUESTS HER PORT BE ACCESSED "SO YOU CAN GIVE ME MORE PAIN MEDICINE AND GIVE IT FASTER." MD CONSULTED. ORDERS TO ACCESS PORT. PORT ACCESSED PER PROTOCOL. BRISK BLOOD RETURN NOTED. LINE INFUSING IV FLUIDS (SEE MAR). LFA PIV SALINE LOCKED AT THIS TIME. ALCOHOL CAP APPLIED. MD TO ROOM FOR ROUNDS. ORAL PAIN MEDICATION GIVEN PER PT REQUEST. NO EMESIS NOTED. PT DRIFTS OFF TO SLEEP, RESPIRATIONS EVEN AND UNLABORED. CALL LIGHT WITHIN REACH.
--- NOTE | 2019-02-12 10:46 | NUR ---
PT CALL LIGHT ON. PT REQUESTS "MORE TO DRINK." WARM TEA PROVIDED. ICE PACK PROVIDED. PER PT REQUESTS. PT STATES "I WANT MORE PHENEGRAN, 25 MG IS NOT ENOUGH FOR ME." PHENEGRAN GIVEN. MEEHAN CATHETER DC'D PER PROTOCOL AND MD ORDER. EDUCATION DONE WITH PT REGARDING MEDICATIONS. PHENEGRAN GIVEN (SEE MAR). NO ADDITIONAL REQUESTS OR COMPLAINTS AT THIS TIME. CALL LIGHT WITHIN REACH.
--- NOTE | 2019-02-12 12:08 | NUR ---
NOON ASSESSMENT DUE. THIS RN TO ROOM. PT RESTING ON BACK WITH EYES CLOSED RR = 18, EVEN AND UNLABORED. NO TREMORS, EMESIS, OR DRY HEAVES NOTED. ASSESSMENT DONE. PT AWAKENS TO TOUCH. PT STATES "I HAVE A SPLITTING HEADACHE BUT I'M SURE I CAN'T TAKE ANYTHING FOR IT." PT OFFERED MORPHINE, PT FALLS BACK TO SLEEP BEFORE ANSWERING. PT REAWAKENS AND STATES SHE NEEDS MORPHINE AND PHENEGRAN "NOW." PT ADVISED THAT PHENEGRAN IS NOT DUE YET. NO DRY HEAVES NOTED. MORPHINE GIVEN (SEE MAR). PT REPOSITIONS SELF TO RIGHT SIDE AND FALLS BACK TO SLEEP, RESPIRATIONS EVEN AND UNLBORED. NO TREMORS NOTED AWAKE OR ALSEEP. ABDOMEN SOFT. OSTOMY BAG DRAINING BROWN/GREEN, WNL. LUNG SONDS CLEAR. DEPENDS DRY AT THIS TIME. CALL LIGHT WITHIN REACH.
--- NOTE | 2019-02-12 13:00 | NUR ---
Pt states she wants to sleep at this time and does not want to speak with CM. Will follow up tomorrow.
--- NOTE | 2019-02-12 13:14 | NUR ---
THIS RN TO ROOM TO REASSESS PAIN. PT RESTING ON RIGHT SIDE WITH EYES CLOSED. RESPIRATIONS EVEN AND UNLABORED. BED RAILS UP. CALL LIGHT WITHIN REACH.
[2019-02-12] MEDS ORDERED: WARFARIN SODIUM1 MG PO (14:26)
--- NOTE | 2019-02-12 14:50 | NUR ---
THIS RN TO ROOM TO CHECK ON PT. PT RESTING WITH EYES CLOSED. NO TREMORS OR DRY HEAVES NOTED. PT AWAKENS TO VOICE AND TOUCH. PT REPORTS 6/10 PAIN AND STATES "I NEED PAIN MEDICATION NOW." SEE MAR FOR MEDICATION GIVEN. PT REPORTS SHE WANTS PHENEGRAN "NOW, SO I CAN SLEEP." PT INFORMED OF NEXT TIME PHENEGRAN CAN BE GIVEN AND REASONS WHY. PT DECLINES ZOFRAN. TEMPERATURE REASSESSED = 99.7. PT BACK TO RESTING WITH EYES CLOSED, RESPIRATIONS EVEN AND UNLABORED. NO ADDITIONAL REQUESTS OR COMPLAINTS. CALL LIGHT WITHIN REACH.
--- NOTE | 2019-02-12 17:00 | NUR ---
AFTERNOON ASSESSMENT AND MEDICATION DUE. THIS RN TO BEDSIDE. BED WET. PT UP TO CHAIR. SBA. DEPENDS CHANGED, MARLENA CARE DONE. LINENS CHANGED. FRESH DEPENDS IN PLACE. PT REFUSES TO STAY UP TO CHAIR, SBA BACK TO BED. PT REQUESTS PHENEGRAN AT THIS TIME. SEE MAR FOR MEDICATION GIVEN. FLUID RATE DECREASED PER MD ORDER. TEMPERATURE OF 100.9 NOTED. TYELNOL GIVEN. MD AWARE. WATER REFILLED. NO ADDITIONAL REQUESTS OR COMPLAINTS AT THIS TIME. CALL LIGHT WITHIN REACH.
--- NOTE | 2019-02-12 17:53 | NUR ---
PT HERE FOR UTI. 1PA UP T CHAIR BREIFLY THIS SHIFT. PT TOLERATING CLEAR LIQUID DIET. 8-10/10 PAIN THIS SHIFT, PRN PAIN MEDICAITONS GIVEN. PT REPORTS DRY HEAVES WHEN AWAKE, PRN NAUSEA MEDICATIONS GIVEN. IF FLUID RATE DECREASED. DEPENDS IN PLACE FOR INCONTINANCE. PORT ACCESSED THIS SHIFT, BRISK BLOOD RETURN NOTED. PT ASLEEP FOR MOST OF SHIFT. FEBRIAL IN EVENING, PRN TYLENOL GIVEN. PT USES CALL LIGHT INCONSISTANTLY.
--- NOTE | 2019-02-12 18:37 | NUR ---
THIS RN TO ROOM TO CHECK ON PT. PT RESTING WITH EYES CLOSED. RESPIRATIONS EVEN AND UNLBORED. PT AWAKENS TO MOVEMENT IN ROOM. PT REQUESTS "MORPINE OR PHENEGRAN." PT DENIES NAUSEA AND REPORTS 6/10 PAIN. PT STATES "I NEED THAT MEDICATION TO HELP ME SLEEP." EDUCATION DONE WITH PT REGARDING INDICATIONS FOR MEDICATION. PT CONTINUES TO REQUEST MORPHINE. SEE MAR FOR MEDICAITON GIVEN. TEMPERATURE REEVALUTATED = 100.0. NO ADDITIONAL REQUESTS OR COMPLAINTS AT THIS TIME. PT STATES "I'M FEELING A LOT BETTER NOW." PT WATCHING TV. BED RAILS UP. CALL LIGHT WITHIN REACH.
--- NOTE | 2019-02-12 19:30 | NUR ---
REPORT RECEIVED FROM DAY SHIFT RN. PT IN BED, RESTING WITH EYES CLOSED. NAD. IVF INFUSING. CALL LIGHT IN REACH.
--- NOTE | 2019-02-12 21:05 | NUR ---
PATIENT CALLED AND REQUESTED HER ATTEND BE CHANGED. PATIENTS ATTEND CHANGED. MARLENA CARE COMPLETED. PATIENT WAS ABLE TO LIFT BOTTOM FOR ATTENDSD CHANGE. PATIENTS VITALS TAKEN AND RECORDED. PATIENT EDUCATED ON THE IMPORTANCE OF GETTING UP TO USE THE RESTROOM. PATIENT STATED "I CANT". PATIENT ENCOURAGED NEXT TIME TO CALL AND STAFF WOULD ASSIST HER TO THE BATHROOM OR BSC. PATIENT DID NOT RESPOND. NO NEEDS NOTED. CALL LIGHT IN REACH.
--- NOTE | 2019-02-12 21:50 | NUR ---
ASSESSMENT COMPLETE. PT MEDICATED WITH PRN PAIN FOR C/O 5/10 GENERALIZED PAIN. NO C/O NAUSEA OR DRY HEAVES NOTED. IV ABX INFUSING. PORT DRESSING CDI. ALERT AND ORIENTED X 3. PT IS DROWY AND WILL DRIFT OFF TO SLEEP QUICKLY, WILL AWAKEN WHEN SPOKEN TO. CALL LIGHT IN REACH.
--- NOTE | 2019-02-13 00:15 | NUR ---
CALL LIGHT ANSWERED. PT STATES SHE IS VOMITING AND REQUESTING PHENEGRAN. IN TO ASSESS PT, NO VOMIT IN EMESIS BAG. PT THEN STATES SHE WAS DRY HEAVING. MEDICATED WITH PRN PHENEGRAN PER PROTOCOL. GAVE PRN TYLENOL FOR ORAL TEMP OF 100.9.
--- NOTE | 2019-02-13 02:45 | NUR ---
PT CALLED BECAUSE SHE IS "UNCOMFORTABLE" AND WANTS SOMETHING FOR SLEEP/PAIN. SUGGESTED PRN PO MEDS ORDERED ON -JUN, PT REFUSED. STATED SHE WANTS IV MORPHINE NOW AND SAVE THE PO FOR MORNING. MEDICATED WITH PRN IV PER MD ORDER. ASSISTED PT WITH ATTENDS CHANGE IN BED, PT ABLE TO DO OWN MARLENA-CARE IF HANDED SUPPLIES. STATES SHE IS UNABLE TO FEEL WHEN SHE VOIDS. NO OTHER REQUESTS AT THIS TIME. CALL LIGHT IN REACH.
--- NOTE | 2019-02-13 05:45 | NUR ---
PT REQUESTING PO PAIN MEDS AT THIS TIME FOR 7/10 GENERALIZED PAIN. FRESH H20 AND SPRITE GIVEN PER PT REQUEST. NO OTHER NEEDS AT THIS TIME. CALL LIGHT IN REACH.
--- NOTE | 2019-02-13 06:19 | NUR ---
PT A&O, USES CALL LIGHT APPROPRIATELY. LUNGS CLEAR, RA. COLOSTOMY. INCONTINENT OF URINE. PRN PAIN AND NAUSEA MEDS GIVEN. MARIUSZ CL LIQ DIET. PORT ACCESSED. IVF AND ABX. PRN TYLENOL FOR LOW GRADE FEVER.
--- NOTE | 2019-02-13 06:27 | NUR ---
JANETT BLOOD FROM PATIENTS PORT FOR MORNING LABS. BLOOD SENT TO LAB. PATIENT DENIES ANY NEEDS. CALL LIGHT IN REACH.
--- NOTE | 2019-02-13 07:40 | NUR ---
PT IN BED, EYES CLOSED, PT APPEARS TO BE SLEEPING. PT IS ON RA, RESP EVEN AND NON LABORED. PERSONAL SUPPLIES AND CALL LIGHT WITHIN REACH.
--- NOTE | 2019-02-13 09:15 | NUR ---
ADMIN TYLENOL 650MG PO AND PHENERGAN 25MG IVP FOR REPORTS OF NAUSEA AND 7/10 GENERALIZED PAIN.
--- NOTE | 2019-02-13 09:50 | NUR ---
ADMIN MORPHINE 2MG IVP FOR REPORTS OF 7/10 GENERALIZED PAIN.
--- NOTE | 2019-02-13 10:10 | NUR ---
OBTAINED VERBAL CONSENT FROM PT TO SPEAK WITH HER , ISIDRO HARTLEY REGARDING PT'S PLAN OF CARE. PT'S UPDATED WITH POC AT THIS TIME VIA PHONE.
--- NOTE | 2019-02-13 10:21 | NUR ---
DR. GUY AWARE OF TEMPERATURE OF 101.6F. TYLENOL ADMINISTERED, WILL CONTINUE TO MONITOR.
--- NOTE | 2019-02-13 12:08 | NUR ---
PT IN BED, EYES CLOSED RESTING AT THIS TIME. PT APPEARS COMFORTABLE, NO NOTABLE DISTRESS. PT ON RA, RESP EVEN AND NON LABORED. CALL LIGHT WITHIN REACH. NO NEEDS AT THIS TIME.
--- NOTE | 2019-02-13 13:38 | NUR ---
LUKASZ MCMAHAN REQUESTED THAT I NOT DISTURB PT IF SHE IS SLEEPING-WHICH SHE IS. WILL FOLLOW NEEDED
[2019-02-13] MEDS ORDERED: PROMETHAZINE HC25 M1 PO (14:02)
--- NOTE | 2019-02-13 14:02 | NUR ---
MED REC COMPLETE
--- NOTE | 2019-02-13 15:00 | NUR ---
Pt declines case management visit for assessment.
--- NOTE | 2019-02-13 17:43 | NUR ---
ADMIN PHENERGAN 25MG IVP AND TYLENOL 650MG PO FOR REPORTS OF NAUSEA AND PAIN.
--- NOTE | 2019-02-13 19:44 | NUR ---
REPORT RECEIVED FROM DAY SHIFT RN. PT LYING IN BED WITH EYES CLOSED, NAD. RR EVEN AND UNLABORED. IVF INFUSING. CALL LIGHT IN REACH.
--- NOTE | 2019-02-13 21:13 | NUR ---
PATIENT IS RESTING IN BED. PATIENTS VITASL TAKEN AND RECORDED. PATIENT PROVIDED WITH SUPPLIES TO CHANGE ATTEND. PATIENT PERFORMED MARLENA CARE AND CHANGED OWN ATTEND. INTAKE AND OUPUT RECORDED. JAYLEEN MURRAY RN IS IN THE ROOM. NO FURTHER NEEDS NOTED. CALL LIGHT IN REACH.
--- NOTE | 2019-02-13 21:20 | NUR ---
ASSESSMENT COMPLETE. MEDICATED WITH PO PRN FOR 8/10 GENERALIZED PAIN. LUNGS CLEAR. IVF INFUSING THROUGH PORT WITHOUT ISSUE. LEFT AC IV SITE DC'D DUE TO LEAKING. TIP INTACT. PT DROWSY BUT AROUSES EASILY. DENIES OTHER NEEDS, CALL LIGHT IN REACH.
--- NOTE | 2019-02-14 02:21 | NUR ---
CALL LIGHT ANSWERED. PT REQUESTING PRN PHENEGRAN FOR A "LITTLE BIT OF NAUSEA". ADMINISTERED PER ORDER. ASSISTED PT WITH ATTENDS CHANGE, PT DID OWN MARLENA CARE. JELLO GIVEN PER PT REQUEST. TEMP 99.8. CALL LIGHT IN REACH.
--- NOTE | 2019-02-14 06:02 | NUR ---
PATIENTS VITALS TAKEN AND RECORDED. INTAKE AND OUPUT RECORDED. PATIENT PROVIDED WITH SUPPLIES TO CHANGE OWN ATTEND. PATIENT IS RESQUSTING PAIN MEDICATION. NOTIFIED JAYLEEN RN PRIMARY RN. CALL LIGHT IN REACH.
--- NOTE | 2019-02-14 06:09 | NUR ---
PT ALERT AND ORIENTED. USES CALL LIGHT APPROPRIATELY. INCONTINENT OF URINE. COLOSTOMY. IVF AND ABX. PORT ACCESSED. MARIUSZ CL LIQ. MEDICATED WITH NAUSEA AND PAIN MEDS.
--- NOTE | 2019-02-14 06:20 | NUR ---
MEDICATED PT WITH PRN FOR PAIN. ALSO, GAVE PRN TYLENOL FOR ELEVATED TEMP OF 100.7. NO OTHER REQUESTS AT THIS TIME. CALL LIGHT IN REACH.
--- NOTE | 2019-02-14 08:30 | NUR ---
ATE 25% OF BREAKFAST, STATES ITS BEEN A WHILE SINCE SHE HAS HAD AN APPETITE. WATCHING TV. DENIES FURTHER NEEDS.
--- NOTE | 2019-02-14 09:13 | NUR ---
IN PTS ROOM TO DO INITIAL CASE MANAGEMENT ASSESSMENT. PT PLEASENT AND WILLING TO ANSWER ALL QUESTIONS. STATES SHE LIVES WITH HER IS ALREADY SET UP AT HOME FOR ALL OF HER NEEDS.
--- NOTE | 2019-02-14 09:43 | NUR ---
PATIENT RESTING IN BED. PATIENT'S GOWN AND ATTEND CHANGED. LINENS CHANGED. VITAL SIGNS AND I&O DONE. CALL LIGHT WITHIN REACH. NO OTHER NEEDS AT THIS TIME
[2019-02-14] MEDS ORDERED: CIPROFLOXACIN500 MG PO (10:43)
[2019-02-14] MEDS ORDERED: CULTURELLE1 EAC1 PO (10:45)
--- NOTE | 2019-02-14 12:28 | NUR ---
PT ALERT, ORIENTED AND ADMITTED THAT SHE IS FEELING THE BEST SHE HAS SINCE ADMISSION. PT WAS READY TO TALK, VISITED ABOUT ETERNITY, HEAVEN AND WHAT SHE BELIEVES. I WAS REMINDED THAT "PAIN CHANGES PEOPLE" I VISITED WITH PT TO- DAY. SHE WAS HONEST AND OPEN ABOUT HER SUFFERING, HER FAMILY AND ALLOWED ME TO PRAY WITH HER. PT ALSO ACCEPTED A P.OLGAWL. WILL FOLLOW NEEDED
--- NOTE | 2019-02-14 13:57 | NUR ---
PATIENT RESTING IN BED. VITAL SIGNS AND I&O DONE. PATIENT'S ATTEND CHANGED. CALL LIGHT WITHIN REACH. NO OTHER NEEDS AT THIS TIME
--- NOTE | 2019-02-14 14:30 | NUR ---
PT C/O FEELING CHILLED, T-99.5, TYLENOL GIVEN. PT REQUESTED OXYCODONE AND PROMETHAZINE FOR DISCOMFORT. CALLED KITCHEN TO ORDER DINNER - HOT TURKEY SANDWICH.
--- NOTE | 2019-02-14 17:10 | NUR ---
ATE 75% OF DINNER, IN GOOD SPIRITS THIS EVENING, LOOKING FORWARD TO GOING HOME AFTER POTASSIUM INFUSION COMPLETE. REQUIRES OXYCODONE 10MG AND PHENERGAN 25MG IV Q 4 HRS FOR PAIN CONTROL. USING CALL LIGHT APPROP FOR ASSISTANCE. INC OF URINE AND MANAGING COLOSTOMY WITH MIN ASSIST.
--- NOTE | 2019-02-14 17:45 | NUR ---
PATIENT RESTING IN BED. VITAL SIGNS AND I&O DONE. ICE WATER GIVEN. CALL LIGHT WITHIN REACH. NO OTHER NEEDS AT THIS TIME
--- NOTE | 2019-02-14 18:42 | NUR ---
DISCHARGE INSTRUCTIONS REVIEWED WITH PT, VERBALIZES UNDERSTANDING OF MEDICATIONS AND FOLLOWUP APPOINTMENT. CIPRO 500MG TAB GIVEN PO. WAITING TO COMPLETE POTASSIUM INFUSION AND WILL DC HOME WITH . PHARMACIST IN TO SEE PT AND REVIEW MEDICATIONS PRIOR TO DC.
== END 2019-02-14 19:19 | disposition home or self-care (01) | DRG 872 ==
LOC: ED 19:21 → MS 22:42
PROVIDERS: ADMIT Student in an Organized Health Care Education/Training Program
DX: A41.59 Other Gram-negative sepsis (principal); N39.0 Urinary tract infection, site not specified; E87.1 Hypo-osmolality and hyponatremia; K50.90 Crohn's disease, unspecified, without complications; E87.6 Hypokalemia; E83.42 Hypomagnesemia; I10 Essential (primary) hypertension; G89.4 Chronic pain syndrome; Z79.899 Other long term (current) drug therapy; Z86.718 Personal history of other venous thrombosis and embolism; Z93.4 Other artificial openings of gastrointestinal tract status; Z79.01 Long term (current) use of anticoagulants; Z79.891 Long term (current) use of opiate analgesic; Z88.1 Allergy status to other antibiotic agents; Z88.5 Allergy status to narcotic agent; Z88.0 Allergy status to penicillin; Z88.8 Allergy status to other drugs, medicaments and biological substances
CPT/HCPCS: 36415; 51702; 71045; 80048; 80053; 81001; 83605; 83735; 84100; 85025; 85610; 87077; 87088; 87186; 97165; 99284-25; 99406; J0692; J0744; J2270; J2405; J2550; J3475; J3480; J7030; J7060; J7121

== ENCOUNTER 2019-03-09 02:03 | Inpatient (IN) | payer MEDICARE ==
[~2019-03-09] VITALS: Ht 175.3 cm; Wt 62.0 kg
--- OUTSIDE RECORDS SUMMARY | ~2019-03-09 | XMS | Encounter Summary ---
Demographics + + + | Address | [address] | | | [place] [address] | + + + | Home Phone | | + + + | Preferred Language | Unknown | + + + | Marital Status | | + + + | Orthodox Affiliation | NRP | + + + | Race | White | + + + | Ethnic Group | Not or | + + + Author + + + | Author | [facility] | + + + | Organization | [facility] | + + + | Address | Unknown | + + + | Phone | Unavailable | + + + Support + + + + + | Name | Relationship | Address | Phone | + + + + + | Kole Willingham | [place] | [address] | | | | | [place], [place] | | | | | [address] | | + + + + + | Cami Sawyer | ECON | Unknown | | + + + + + Care Team Providers + +------+ + | Care Panel Assembler Name | Role | Phone | + +------+ + | Aren Rose DO | PCP | | + +------+ + Reason for Visit AUTH/CERT +--------+--------+ + + + + | Status | Reason | Specialty | Diagnoses / | Referred By | Referred To | | | | | Procedures | Contact | Contact | +--------+--------+ + + + + | Closed | | | | | | +--------+--------+ + + + + Encounter Details +--------+ + + + + | Date | Type | Department | Care Team | Description | +--------+ + + + + | 03/20/ | Hospital | Vascular Access at | | | | 2011 | Encounter | [address] [facility] | | | | | | [facility] | | | | | | [facility] | | | | | | [place], [place] | | | | | | [address] | | | | | | [phone] | | | +--------+ + + + [...] + + documented as of this encounter Medications at Time of Discharge + + + +---------+ + + | Medication | Sig | Dispensed | Refills | Start | End Date | | | | | | Date | | + + + +---------+ + + | | Take 1 Tab by mouth | 14 Tab | 0 | 04/01/20 | | | amoxicillin-clavulan | every twelve hours | | | 12 | 3 | | ate 875-125 mg Oral | for 14 days. | | | | | | tablet | | | | | | + + + +---------+ + + | enoxaparin | Inject 0.8 mL under | 10 | 0 | 03/16/20 | | | (LOVENOX) 80 mg/0.8 | the skin (SUBC) | Syringe | | 12 | 2 | | mL Subcutaneous | every twelve hours | | | | | | Syringe | for 5 days. Continue | | | | | | | for at least 5 days | | | | | | | and overlap with | | | | | | | warfarin until INR | | | | | | | 2-3. | | | | | + + + +---------+ + + | enoxaparin 80 | Inject 0.8 mL under | | 0 | 04/01/20 | | | mg/0.8 mL | the skin (SUBC) | | | 12 | 2 | | Subcutaneous Syringe | every twelve hours | | | | | | | for 10 doses. | | | | | + + + +---------+ + + | predniSONE 2.5 mg | Take 1 Tab by mouth | 3 Tab | 0 | 04/05/20 | | | Oral tablet | once daily for 3 | | | 12 | 2 | | | days. | | | | | + + + +---------+ + + | predniSONE 5 mg | Take 1 Tab by mouth | 3 Tab | 0 | 04/02/20 | | | Oral tablet | once daily for 3 | | | 12 | 2 | | | days. | | | | | + + + +---------+ + + documented as of this encounter Plan of Treatment Not on filedocumented as of this encounter Visit Diagnoses Not on filedocumented in this encounter"
--- OUTSIDE RECORDS SUMMARY | ~2019-03-09 | XMS | Encounter Summary ---
Demographics + + + | Address | [address] | | | [place] [address] | + + + | Home Phone | | + + + | Preferred Language | Unknown | + + + | Marital Status | | + + + | Yarsanism Affiliation | NRP | + + + | Race | White | + + + | Ethnic Group | Not or | + + + Author + + + | Author | [facility] | + + + | Organization | [facility] | + + + | Address | Unknown | + + + | Phone | Unavailable | + + + Support + + + + + | Name | Relationship | Address | Phone | + + + + + | Kole Willingham | [place] | [address] | | | | | [place], [place] | | | | | [address] | | + + + + + | Cami Sawyer | ECON | Unknown | | + + + + + Care Team Providers + +------+ + | Care Private Duty Aide Name | Role | Phone | + +------+ + | Aren Rose DO | PCP | | + +------+ + Reason for Referral PROC - Dept/Practice Procedure (Urgent) +--------+--------+ + + + + | Status | Reason | Specialty | Diagnoses / | Referred By | Referred To | | | | | Procedures | Contact | Contact | +--------+--------+ + + + + | Closed | | Gastroenterol | Diagnoses | Trice Marie, | [facility] | | | | ogy | | MD [address] | [address] | | | | | Rectovaginal | [address] | [address] | | | | | fistula | [address] | Mailcode: | | | | | Procedures | [place], [place] | [facility] | | | | | CONSULT TO | [address] | for Health | | | | | GI PROCEDURE | Phone: | and Healing, | | | | | UNIT: | [phone] | [address] | | | | | FLEXIBLE | Fax: | [place], [place] | | | | | [facility] | [phone] | [address] | | | | | Y AL | | Phone: | | | | | [facility] | | [phone] | | | | | Y,BIOPSY | | Fax: | | | | | | | [phone] | +--------+--------+ + + + + Reason for Visit + + + | Reason | Comments | + + + | schedule tests | | + + + Encounter Details +--------+ + + + + | Date | Type | Department | Care Team | Description | +--------+ + + + + | 08/27/ | Telephone | Digestive Health | Trice Marie MD | schedule tests | | 2016 | | [place] [facility] [address] | [address] | | | | | [address] | [facility], | | | | | Mailcode: [place] | [place] [address] | | | | | [facility] and | [phone] | | | | | [place] [address] | | | | | | [place], [place] | | | | | | [address] | | | | | | [phone] | | | +--------+ + + + [...] | | + +---+---+---+ + + | Comments: vaporizes | + + + [...] filedocumented as of this encounter Visit Diagnoses + + | Diagnosis | + + | Rectovaginal fistula - Primary Digestive-genital tract fistula, female | + + documented in this encounter"
--- OUTSIDE RECORDS SUMMARY | ~2019-03-09 | XMS | Encounter Summary ---
Demographics + + + | Address | [address] | | | [place] [address] | + + + | Home Phone | | + + + | Preferred Language | Unknown | + + + | Marital Status | | + + + | Anglican Affiliation | NRP | + + + | Race | White | + + + | Ethnic Group | Not or | + + + Author + + + | Author | [facility] | + + + | Organization | [facility] | + + + | Address | Unknown | + + + | Phone | Unavailable | + + + Support + + + + + | Name | Relationship | Address | Phone | + + + + + | Kole Willingham | [place] | [address] | | | | | [place], [place] | | | | | [address] | | + + + + + | Cami Sawyer | ECON | Unknown | | + + + + + Care Team Providers + +------+ + | Care Pulping Machine Operator Name | Role | Phone | + +------+ + | Aren Rose DO | PCP | | + +------+ + Reason for Visit + + + | Reason | Comments | + + + | Request For Records | | + + + Encounter Details +--------+ + + + + | Date | Type | Department | Care Team | Description | +--------+ + + + + | 08/03/ | Telephone | Digestive Health | Trice Marie MD | Request For Records | | 2015 | | Center at [facility] [address] | [address] | | | | | [address] | [facility] | | | | | Mailcode: [place] | [place] [address] | | | | | [facility] and | [phone] | | | | | [place] [address] | | | | | | [place], [place] | | | | | | [address] | | | | | | [phone] | | | +--------+ + + + [...]
--- OUTSIDE RECORDS SUMMARY | ~2019-03-09 | XMS | Encounter Summary ---
Demographics + + + | Address | [address] | | | [place] [address] | + + + | Home Phone | | + + + | Preferred Language | Unknown | + + + | Marital Status | | + + + | Confucianism Affiliation | NRP | + + + | Race | White | + + + | Ethnic Group | Not or | + + + Author + + + | Author | [facility] | + + + | Organization | [facility] | + + + | Address | Unknown | + + + | Phone | Unavailable | + + + Support + + + + + | Name | Relationship | Address | Phone | + + + + + | Kole Hartley | [place]AM[place] | [address] | | | | | [place], [place] | | | | | [phone] | | + + + + + | Cami Sawyer | ECON | Unknown | | + + + + + Care Team Providers + +------+ + | Care Review Rn Name | Role | Phone | + +------+ + | Aren Rose DO | PCP | | + +------+ + Reason for Visit + + + | Reason | Comments | + + + | Hemorrhage | Abdomen | + + + AUTH/CERT +--------+--------+ + + + + | [...] | +--------+ + + + + | 04/23/ | Hospital | [facility] [address] | Rich Goss, | | | 2015 - | Encounter | [address] | ,[facility] [address] | | | | | [place], [place] | [address] | | | 05/13/ | | | [place], [place] | | | 2014 | | [phone] | [address] | | | | | | [phone] | | | | | | | | | | | | Jf Wiseman MD | | | | | | [address] | | | | | | [address] | | | | | | [place], [place] | | | | | | [address] | | | | | | [phone] | | | | | | | | +--------+ + + + [...] + + documented as of this encounter Last Filed Vital Signs + + + + + | Vital Sign | Reading | Time Taken | Comments | + + + + + | Blood Pressure | 145/78 | 05/13/2014 8:40 AM | | | | | PST | | + + + + + | Pulse | 108 | 05/13/2014 8:40 AM | | | | | PST | | + + + + + | Temperature | 37.1 C (98.8 F) | 05/13/2014 8:40 AM | | | | | PST | | + + + + + | Respiratory Rate | 20 | 05/13/2014 8:40 AM | | | | | PST | | + + + + + | Oxygen Saturation | 92% | 05/13/2014 8:40 AM | | | | | PST | | + + + + + | Inhaled Oxygen | - | - | | | Concentration | | | | + + + + + | Weight | 81.1 kg (178 lb 12.8 | 05/04/2014 9:47 PM | | | | oz) | PST | | + + + + + | Height | 175 cm (5' 8.9") | 04/24/2014 11:16 PM | | | | | PST | | + + + + + | Body Mass Index | 26.48 | 04/24/2014 11:16 PM | | | | | PST | | + + + + + documented in this encounter Discharge Summaries Corbin Rogers NP - 05/13/2014 8:10 AM PSTFormatting of this note might be different f rom the original. 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 Reopening of laparotomy 2. Evacuation of intraabdominal hematoma 3. Lysis of adhesions 4. Control of retroperitoneal hemorrhage 5. Closure of laparotomy 6. Skin VAC placement 7. Removal of foreign bodies from peritoneal cavity Brief Hospital Course On 04/23/14, she went to Interventional Radiology for embolization of left iliolumbar artery that was bleeding. She was taken to the operating room on 04/24/14 for reopening of laparot nel, evacuation of 2-3 liters of old hematoma from retroperitoneal space and closure. Left common femoral pseudoaneurysm noted with Vascular Surgery consulted. Mackenzie was extubated o n 04/26/14 tolerating oxygen 2 liters via mask. She was taken to Interventional Radiology on 04/27/14, where she underwent thrombin injection into the pseudoaneurysm. Hematology was co nsulted regarding anticoagulation and was transitioned from IV heparin to warfarin with love nox bridge. Prednisone was tapered to a dose of 15mg daily. She will follow up with her [facility] cisneros for additional dosing instructions. A Dobbhoff feeding tube was placed for nutritio n. She continues with dysphagia and will need ongoing Speech therapy. She was [facility] to [facility] however the following day was transferred back to ICU in re spiratory distress. She received IV diuresis with improved and transferred to the [facility] on 05/04/14. She continued to progress and is discharged [facility] care. Mackenzie Hartley is discharged in stable condition with Dobbhoff feeding tube/tube feedings to b e cycled to nocturnal. She will continue with Speech Therapy for dysphagia on puree diet wit h nectar thick liquids.Tube feedings may be discontinued when tolerating 75% of caloric requ irements. She will continue with physical and occupation therapy for deconditioning. Her a bdominal wound has healed with other needs. She has a wolf catheter replaced due to urinar y retention. She has been started on Flomax and may trial removal in one week with bladder s can and straight catheterization of post void residual volume of > 350mls. She is discharge d on warfarin therapy and will need INR check every 2 days until INR is between 2 to 3. INR upon discharge is 1.88 and will continue Lovenox bridge. During the next two weeks, she will need to follow up with PCP for history of COPD and PFT for updating status and medications accordingly, and will follow up with Provider for predni sone dosing as indicated. Vitals on discharge: Ht 1.75 m (5' 8.9"), Wt 81.103 kg (178 lb 12.8 oz), BP 140/70, Pulse 1 06, Temperature 37.3 C (99.1 F), RR 18, SpO2 92%, BMI 26.48 kg/(m^2). Medications: Current Discharge Medication List START taking these medications Details acetaminophen 325 mg oral tablet 2 tablets by feeding tube route every six hours. albuterol 0.083% 2.5 mg /3 mL (0.083 %) inhalation solution for nebulization 1-2 puffs q 4 to 6 hours as needed for shortness of breath Qty: 3 mL, Refills: 0 ascorbic acid 500 mg/5 mL oral syrup 5 mL by feeding tube route two times daily. Qty: 118 mL bisacodyl 10 mg rectal suppository Insert 1 suppository rectally once daily as needed for c onstipation (for no BM). Qty: 5 suppository, Refills: 1 enoxaparin 80 mg/0.8 mL subcutaneous syringe Inject 0.8 mL under the skin (SUBC) every twel ve hours. Continue Lovenox until INR at goal of 2-3 for two consecutive lab draws, then stop . Qty: 14 Syringe, Refills: 1 famotidine 20 mg oral tablet Take 1 tablet by mouth two times daily. Qty: 30 tablet, Refills: 0 gabapentin 300 mg oral capsule Take 1 capsule by mouth three times daily for 15 days. For p ost op pain. Taper to stop one twice daily for 3 days then one daily for 3 days and stop. Qty: 45 capsule, Refills: 0 guar gum oral packet 3-4 packets by feeding tube route once daily. Qty: 120 packet, Refills: 3 loperamide 2 mg oral capsule Take 2 capsules by mouth four times daily. Adjust for stool ou tput with goal of formed stools. Indications: DIARRHEA nystatin 100,000 unit/gram topical powder Apply to affected area two times daily. Apply to candidal lesions until lesions have healed. Qty: 15 g, Refills: 0 oxyCODONE, immediate release, 5 mg oral tablet Take 1-2 tablets by mouth every three hours as needed for severe pain. Qty: 140 tablet, Refills: 0 senna 8.8 mg/5 mL oral syrup 5 mL by feeding tube route twice daily as needed. Indications: CONSTIPATION Qty: 237 mL, Refills: 0 tamsulosin 0.4 mg oral capsule,extended release 24hr Take 1 capsule by mouth once daily at bedtime. For Urinary retention Qty: 20 capsule, Refills: 0 zinc sulfate 220 mg total salt (50 mg elemental) oral capsule Take 1 capsule by mouth once daily for 30 days. Qty: 30 capsule, Refills: 0 zolpidem 5 mg oral tablet 1 tablet by feeding tube route once daily at bedtime as needed. Qty: 30 tablet, Refills: 0 CONTINUE these medications which have CHANGED or have new prescriptions Details metoprolol tartrate 50 mg oral tablet 0.75 tablets by feeding tube route two times daily. Qty: 60 tablet, Refills: 3 predniSONE 5 mg oral tablet 3 tablets by feeding tube route once daily for 30 days. Qty: 90 tablet, Refills: 1 warfarin 7.5 mg oral tablet 1 tablet by feeding tube route once daily in the evening. Qty: 60 tablet, Refills: 1 STOP taking these medications morphine 15 mg Oral tablet Comments: Reason for Stopping: omeprazole 40 mg Oral capsule,delayed release(DR/EC) Comments: Reason for Stopping: oxyCODONE-acetaminophen (ENDOCET) 7.5-325 mg oral tablet Comments: Reason for Stopping: promethazine 25 mg oral tablet Comments: Reason for Stopping: MAINTAIN WOLF CATHETER Urinary retention: Started of Flomax. Continue wolf for 5 days. Then discontinue. Bladder scan 4 times a day and straight cath for PVR > 350mls. Diet Regular Continue with Speech Therapy for dysphasia She may have PUREE texture and NECTAR THICK liquids UPRIGHT to 90 degrees for all PO intake Calorie count High protein / calorie supplements tid Wean tube feedings when patient consumes 75% of recommended daily caloric intake which is 1 100 calories . 1:1 Supervision Small bites/sips. DC PO for increased S/S of penetration/aspiration (increased cough, decreased resp status, increased temp) Tube Feeding Immune enhancing formula Drip schedule: 90 ml/ hour for 22 hours. May Cycle at night as tolerated. Aspiration prec autions Free water Rufus's Kefir 80ml TID Hold for residuals > 300mls Flush 100mls three times a day. Destination: Destination: Intermediate Facility Thank you for the opportunity to take care of MACKENZIE HARTLEY during this inpatient stay, it givens s been our pleasure. Please call with any questions, . Discharging Provider: CORBIN ROGERS NP Attending Physician: Jf Wiseman MD documented in this encounter Medications at Time of Discharge + + + +---------+ + + | Medication | Sig | Dispensed | Refills | Start | End Date | | | | | | Date | | + + + +---------+ + + | acetaminophen 325 | 2 tablets by feeding | | 0 | 05/13/19 | | | mg oral tablet | tube route every | | | 15 | | | | six hours. | | | | | + + + +---------+ + + | metoprolol | 0.75 tablets by | 60 | 3 | 05/13/19 | | | tartrate 50 mg oral | feeding tube route | tablet | | 15 | | | tablet | two times daily. | | | | | + + + +---------+ + + | warfarin 7.5 mg | 1 tablet by feeding | 60 | 1 | 05/13/19 | | | oral tablet | tube route once | tablet | | 15 | | | | daily in the | | | | | | | evening. | | | | | + + + +---------+ + + | gabapentin 300 mg | Take 1 capsule by | 45 | 0 | 05/13/19 | | | oral capsule | mouth three times | capsule | | 15 | 5 | | | daily for 15 days. | | | | | | | For post op pain. | | | | | | | Taper to stop one | | | | | | | twice daily for 3 | | | | | | | days then one daily | | | | | | | for 3 days and stop. | | | | | + + + +---------+ + + | predniSONE 5 mg | 3 tablets by feeding | 90 | 1 | 05/13/19 | | | oral tablet | tube route once | tablet | | 15 | 5 | | | daily for 30 days. | | | | | + + + +---------+ + + | zinc sulfate 220 | Take 1 capsule by | 30 | 0 | 05/13/19 | | | mg total salt (50 mg | mouth once daily for | capsule | | 15 | 5 | | elemental) oral | 30 days. | | | | | | capsule | | | | | | + + + +---------+ + + documented as of this encounter Progress Notes Corbin Rogers NP - 05/13/2014 10:36 AM PSTFormatting of this note might be different f rom the original. [facility] DEPARTMENT OF SURGERY EMERGENCY GENERAL SURGERY Division of Trauma and Critical Care Attending Physician: Jf Wiseman MD Progress Note Note Date: 05/13/2014 Admission Date: 04/23/2014 MACKENZIE HARTLEY, Hospital Day #20 INTERVAL HISTORY and SUBJECTIVE: Identification: Mackenzie Hartley is a 58 year old female with COPD, Crohn's disease, chronic pain, and coagulopathy resulting in splenic artery thrombosi s while anticoagulated with warfarin transferred to [facility] from [facility] for hanh gement of retroperitoneal bleed. She is s/p ex lap, splenectomy, and packing with lap pads a t OSH and from reopening of laparotomy, evacuation of 2-3 L of intraabdominal hematoma, clos ure of open abdomen REVIEW OF SYSTEMS: Pain well controlled Flatus: YES Tolerating diet: Yes Nausea/Vomiting: None Bowel movement: YES Sleep: YES Progressing with Physical Therapy YES OBJECTIVE: PHYSICAL EXAM: LAST VITALS: BP 145/78 | Pulse 108 | Temp 37.1 C (98.8 F) | RR 20 | Ht 1.75 m (5' 8.9") | Wt 81.103 kg (178 lb 12.8 oz) | SpO2 92% | BMI 26.48 kg/(m^2) 24 Hour Vital Min/Max: Systolic (24hrs), Av mmHg, Min:114 mmHg, Max:145 mmHg Diastoli c (24hrs), Av mmHg, Min:60 mmHg, Max:78 mmHg GENERAL: well-developed, well-nourished NEURO: Awake and alert LUNGS: regular non labored CV: RRR ABDOMEN: soft non distended non tender. : Wolf catheter in place and good urine output Extremities:Warm and well perfused, no peripheral edema, toes pink and well perfused and I V sites clean, without infection ASSESSMENT, MEDICAL DECISION MAKING AND PLAN: MACKENZIE HARTLEY- 58 y.o. y/o female admitted on 10:39 AM and hospital day 20 with following current issues. Splenic artery thrombosis in setting of hypercoagulable state - warfarin with lovenox brideg Urinary retention - wolf for 5 days - continue flomax. PVR and straight cath for > 350ml (SNF) Dysphagia - Tube feedings may go nocturnal - speech to follow - puree diet Discharge Plan: [place] [phone] pager number [facility] [address] [place] [address] ean-Claude Albrecht DM D, MD - 05/12/2014 7:56 AM PST [facility] Department of Surgery Progress Note Author: Jean-Claude Albrecht MD General Surgery Resident Attending Physician: Jf Wiseman MD GENERAL SURGERY Progress Note: Hospital Day #: 19 ATTENDING: Jf Wiseman MD Identification: Mackenzie Hartley is a 58 year old female with COPD, Crohn's disease, chronic pa in, and 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 S he is s/p ex lap, splenectomy, and packing with lap pads at OSH and from reopening of laparo sheila, evacuation of 2-3 L of intraabdominal hematoma, closure of open abdomen Interval Events: - No acute overnight events. Pt remains afebrile and other vital signs are within acceptabl e limits. Tachycardia is persistent but stable ~100/min - Pain is adequately controlled. She now complains of left hip pain which improves with rep ositioning - Will look for PT input - remove wolf 05/11 wolf back in 05/12/2014 after 7 straight cath Objective: Last Vitals: BP 132/71 | Pulse 97 | Temp 36.7 C (98.1 F) | RR 16 | Ht 1.75 m (5' 8.9") | Wt 81.103 kg (178 lb 12.8 oz) | SpO2 95% | BMI 26.48 kg/(m^2) 24 Hour Vital Min/Max: Systolic (24hrs), Av mmHg, Min:116 mmHg, Max:132 mmHg Diastolic (24hrs), Av mmHg, Min:52 mmHg, Max:76 mmHg Pulse Min: 87 Max: 101 Temp Min: 36.4 C (97.5 F) Max: 36.9 C (98.4 F) Resp Min: 16 Max: 20 SpO2 Min: 91 % Max: 96 % Intake/Output Summary (Last 24 hours) at 05/12/14 0758 Last data filed at 05/12/14 0346 Gross per 24 hour Intake 810 ml Output 2700 ml Net -1890 ml U/O: 2.7 L Physical Exam: Gen: In NAD, lying comfortably in bed. Chest: non labored breathing Abd: soft, tenderness in lower abdomen resolved, no peritoneal signs, no rebound tenderness , no involuntary guarding, ND Incisions: c/d/i, no erythema, discharge or induration. No s/s infection. Extremities: WWP Labs: Recent Labs 05/10/14 0339 05/11/148 05/12/14 010 WBC 13.80* 14.89* 15.78* HB 9.8* 10.1* 10.4* HCT 31.7* 32.9* 33.6* PLT 379 393 430* Recent Labs 04/25/14 1307 04/27/14 0433 04/29/14 0100 05/10/14 0339 05/11/14 0328 05/11/14 2347 05/12/14 0107 05/12/14 0617 NA -- < > 152* < > 144 < > 136 -- 133* -- -- 134* -- K -- < > 4.1 < > 3.7 < > 4.3 -- 4.6 -- -- 4.7 -- CL -- < > 115* < > 110* < > 101 -- 100 -- -- 102 -- BICARB -- < > 33* < > 28 < > 30 -- 27 -- -- 28 -- BUN -- < > 46* < > 37* < > 25* -- 29* -- -- 25* -- CR -- < > 0.86 < > 0.68 < > 0.46* -- 0.46* -- -- 0.51* -- GLU -- < > 86 < > 104* < > 105* < > 106* < > 93 98 125* CA -- < > 8.8 < > 8.6 < > 9.0 -- 8.9 -- -- 9.3 -- AST 399* -- 216* -- 80* -- -- -- -- -- -- -- -- ALT 433* -- 344* -- 184* -- -- -- -- -- -- -- -- AP 168* -- 235* -- 351* -- -- -- -- -- -- -- -- TBILI 1.5* -- 1.6* -- 1.7* -- -- -- -- -- -- -- -- TP 5.4* -- 4.8* -- 5.3* -- -- -- -- -- -- -- -- ALB 2.2* < > 1.7* | 1.7* < > 1.7* | 1.7* < > 2.0* -- 2.1* -- -- 2.1* -- < > = values in this interval not displayed. Lab Results Component Value Date MG 1.5 05/12/2014 Lab Results Component Value Date INRPT 1.88 05/12/2014 No results found for this basename: TROPONIN Imaging No new Assessment and Plan: Mackenzie Hartley is a 58 y.o. female, hospital day # 19 with COPD, Crohn's disease, chronic pain , and 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 while anticoagulated with warfarin transferred to [facility] from [facility] for management of retroperitoneal bleed. She is s/p ex lap, splenectomy, and packing with lap pads at OSH and from reopening of laparoto my, evacuation of 2-3 L of intraabdominal hematoma, closure of open abdomen. Procedures: 04/24/2014 1. Reopening of laparotomy 2. Evacuation of intraabdominal hematoma 3. Lysis of adhesions 4. Control of retroperitoneal hemorrhage 5. Closure of laparotomy 6. Skin VAC placement 7. Removal of foreign bodies from peritoneal cavity Pain management - adequate control with oxycodone, gabapentin, tylenol and lidoderm patches. - sedation: none - mental status: Awake and alert CV - VSS, stable tachycardia and tachypnea on 2LNC -Myocardial: continue metoprolol 37.5 mg BID. Hypercoagulable state/splenic artery thrombosis: INR sub therapeutic on warfarin restarted lovenox Respiratory - On 2LNC - Aggressive IS/pulmonary hygiene Respiratory insufficiency: Combination of volume overload, pain medication, low respiratory reserve, improving with continued diuresis, scheduled daily diuresis from B[facility] GI Dysphagia: speech following, OK to continue thick nectars , continued DHT,TF - TF at goal - continue Impact 1.5 - cycle TF - consider taking out DHT on Tuesday if pt has adequate caloric PO intake - prophylaxis: famotidine BID Chron's disease - continue predisone 15 mg daily - on remicade at home (q6 weeks), consult GI for timing of restarting remicade - she wants to find new GI team, will let us know if she wants to see the [facility] GI team - Stage I pressure wound: wolf replaced for retention 05/09 - UO good response to furosemide, stopped 05/09 ID Leukocytosis: stable, afebrile, continue to monitor, last C. Diff negative with liquid stoo ls, repeat for persistent liquid stools - negative 05/06 - related to steroids, sp splenectomy - Surgical Infection: No current evidence of infection Stage I pressure wound: wolf for urinary incontience Chem/Hem/Endo - Electrolytes: replace Mag daily - HCT/HB stable - Glycemic control adequate Prophylaxis Activity: out of bed as able. PT/OT Thromboembolism PPY: INR sub therapeutic on warfarin on lovenox Head of bed: Elevated to 30 Ulcer Prevention: famotidine High risk, postoperative pneumonia: IS, ambulation Bowel: Scheduled and PRN bowel regimen Dispo: continue acute care. Appreciate CM discussing options with them regarding SNF placem ent. We are recommending [facility] since would be close to [facility] and she would benefit for aggres sive PT, but is reluctant to have far from home. She is ready for discharge pending placement most likely Tuesday or Tuesday. 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 [facility] [address] [place] [address] This assessment and plan was formulated both independently and in conjunction with the Surg vinh Team as well as the attending provider of record above regarding management of this starr ent and their medical issues. It is accurate to the best of my knowledge, and is subject to modification based on clinical developments, new data, or final imaging results. Current Inpatient Medications Medication Dose Route Frequency acetaminophen (TYLENOL) tablet 650 mg 650 mg feeding tube Q6H albuterol 0.083% (PROVENTIL,VENTOLIN) 2.5 mg /3 mL (0.083 %) nebulizer solution 2.5 mg 2.5 mg inhalation Q4H PRN alteplase (CATHFLO ACTIVASE) injection 2 mg 2 mg Intracatheter PRN artificial tears (hypromellose) (NATURES TEARS) 0.4 % ophthalmic drops 1 drop 1 drop B oth Eyes PRN ascorbic acid liquid 500 mg 500 mg feeding tube BID bisacodyl (DULCOLAX) suppository 10 mg 10 mg rectal DAILY PRN enoxaparin (LOVENOX) injection 80 mg 80 mg subcutaneous Q12H (Scheduled) famotidine (PEPCID) tablet 20 mg 20 mg oral BID gabapentin (NEURONTIN) capsule 300 mg 300 mg oral TID guar gum (BENEFIBER) oral powder 3-4 packet 3-4 packet feeding tube DAILY lidocaine (LIDODERM) 5 %(700 mg/patch) patch 1-2 patch 1-2 patch transdermal Q24H loperamide (IMODIUM) capsule 4 mg 4 mg oral QID menthol-zinc oxide (CALAZIME) topical paste topical TID PRN metoprolol tartrate (LOPRESSOR) tablet 37.5 mg 37.5 mg feeding tube BID nystatin (MYCOSTATIN) powder topical BID oxyCODONE (immediate release) (ROXICODONE) tablet 5-10 mg 5-10 mg oral Q3H PRN potassium chloride (KAOCHLOR) liquid 20 mEq 20 mEq feeding tube TID predniSONE (DELTASONE) tablet 15 mg 15 mg feeding tube DAILY probiotic kefir (RUFUS'S KEFIR) feeding tube TID senna (SENOKOT) liquid 8.8 mg 5 mL feeding tube BID tamsulosin (FLOMAX) capsule 0.4 mg 0.4 mg oral HS warfarin (COUMADIN) tablet 7.5 mg 7.5 mg feeding tube QPM zinc sulfate (ORAZINC, ZINC-220) capsule 50 mg elemental 220 mg total salt oral DAILY zolpidem (AMBIEN) tablet 5 mg 5 mg feeding tube HS PRN ean-Claude Albrecht DMD, MD - 05/11/2014 8:51 AM PST . 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 S he is s/p ex lap, splenectomy, and packing with lap pads at OSH and from reopening of laparo sheila, evacuation of 2-3 L of intraabdominal hematoma, closure of open abdomen Interval Events: - No acute overnight events. Pt remains afebrile and other vital signs are within acceptabl e limits. Tachycardia is persistent but stable ~100/min - Pain is adequately controlled. - remove wolf 05/11 Objective: Last Vitals: BP 145/65 | Pulse 106 | Temp 37.1 C (98.8 F) | RR 20 | Ht 1.75 m (5' 8.9") | Wt 81.103 kg (178 lb 12.8 oz) | SpO2 93% | BMI 26.48 kg/(m^2) 24 Hour Vital Min/Max: Systolic (24hrs), Av mmHg, Min:139 mmHg, Max:152 mmHg Diastolic (24hrs), Av mmHg, Min:65 mmHg, Max:89 mmHg Pulse Min: 99 Max: 106 Temp Min: 36.4 C (97.5 F) Max: 37.1 C (98.8 F) Resp Min: 20 Max: 20 SpO2 Min: 92 % Max: 96 % Intake/Output Summary (Last 24 hours) at 05/11/14 0852 Last data filed at 05/11/14 0600 Gross per 24 hour Intake 1570 ml Output 3150 ml Net -1580 ml U/O: 3150 mL Physical Exam: Gen: In NAD, lying comfortably in bed. Chest: non labored breathing Abd: soft, tenderness in lower abdomen resolved, no peritoneal signs, no rebound tenderness , no involuntary guarding, ND Incisions: c/d/i, no erythema, discharge or induration. No s/s infection. Extremities: WWP Labs: Recent Labs 05/09/14 0308 05/10/14 0339 05/11/14 0328 WBC 14.76* 13.80* 14.89* HB 10.2* 9.8* 10.1* HCT 32.8* 31.7* 32.9* PLT 389 379 393 Recent Labs 04/25/14 1307 04/27/14 0433 04/29/14 0100 05/09/14 0308 05/10/14 0339 05/10/14 2352 05/11/14 0328 05/11/14 0644 NA -- < > 152* < > 144 < > 138 -- 136 -- -- 133* -- K -- < > 4.1 < > 3.7 < > 4.3 -- 4.3 -- -- 4.6 -- CL -- < > 115* < > 110* < > 103 -- 101 -- -- 100 -- BICARB -- < > 33* < > 28 < > 31 -- 30 -- -- 27 -- BUN -- < > 46* < > 37* < > 29* -- 25* -- -- 29* -- CR -- < > 0.86 < > 0.68 < > 0.53* -- 0.46* -- -- 0.46* -- GLU -- < > 86 < > 104* < > 105* < > 105* < > 121* 106* 105* CA -- < > 8.8 < > 8.6 < > 8.8 -- 9.0 -- -- 8.9 -- AST 399* -- 216* -- 80* -- -- -- -- -- -- -- -- ALT 433* -- 344* -- 184* -- -- -- -- -- -- -- -- AP 168* -- 235* -- 351* -- -- -- -- -- -- -- -- TBILI 1.5* -- 1.6* -- 1.7* -- -- -- -- -- -- -- -- TP 5.4* -- 4.8* -- 5.3* -- -- -- -- -- -- -- -- ALB 2.2* < > 1.7* | 1.7* < > 1.7* | 1.7* < > 2.0* -- 2.0* -- -- 2.1* -- < > = values in this interval not displayed. Lab Results Component Value Date MG 1.2 05/11/2014 Lab Results Component Value Date INRPT 1.69 05/11/2014 No results found for this basename: [facility] Imaging No new Assessment and Plan: Mackenzie Hartley is a 58 y.o. 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 She is s/p ex lap, splenectomy, and packing with lap pads at OSH and from reopening of laparoto my, evacuation of 2-3 L of intraabdominal hematoma, closure of open abdomen. Procedures: 04/24/2014 1. Reopening of laparotomy 2. Evacuation of intraabdominal hematoma 3. Lysis of adhesions 4. Control of retroperitoneal hemorrhage 5. Closure of laparotomy 6. Skin VAC placement 7. Removal of foreign bodies from peritoneal cavity Pain management - adequate control with oxycodone, gabapentin, tylenol and lidoderm patches. - sedation: none - mental status: Awake and alert CV - VSS, stable tachycardia and tachypnea on 2LNC -Myocardial: continue metoprolol 37.5 mg BID. Hypercoagulable state/splenic artery thrombosis: INR therapeutic on warfarin. Respiratory - On 2LNC - Aggressive IS/pulmonary hygiene Respiratory insufficiency: Combination of volume overload, pain medication, low respiratory reserve, improving with continued diuresis, scheduled daily diuresis from [facility] GI Dysphagia: speech following, OK to continue thick nectars , continued DHT,TF - TF at goal - continue Impact 1.5 - cycle TF - consider taking out DHT on Tuesday if pt has adequate caloric PO intake - prophylaxis: famotidine BID Chron's disease - continue predisone 15 mg daily - on remicade at home (q6 weeks), consult GI for timing of restarting remicade - she wants to find new GI team, will let us know if she wants to see the [facility] GI team - Stage I pressure wound: wolf replaced for retention 05/09 - UO good response to furosemide, stopped 05/09 ID Leukocytosis: stable, afebrile, continue to monitor, last C. Diff negative with liquid stoo ls, repeat for persistent liquid stools - negative 05/06 - related to steroids, sp splenectomy - Surgical Infection: No current evidence of infection Stage I pressure wound: wolf for urinary incontience Chem/Hem/Endo - Electrolytes: replace Mag daily - HCT/HB stable - Glycemic control adequate Prophylaxis Activity: out of bed as able. PT/OT Thromboembolism PPY: INR therapeutic on warfarin Head of bed: Elevated to 30 Ulcer Prevention: famotidine High risk, postoperative pneumonia: IS, ambulation Bowel: Scheduled and PRN bowel regimen Dispo: continue acute care. Appreciate CM discussing options with them regarding SNF placem ent. We are recommending [facility] since would be close to [facility] and she would benefit for aggres sive PT, but is reluctant to have far from home. She is ready for discharge pending placement most likely Tuesday or Tuesday. 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 [facility] [address] [place] [address] This assessment and plan was formulated both independently and in conjunction with the Surg vinh Team as well as the attending provider of record above regarding management of this starr ent and their medical issues. It is accurate to the best of my knowledge, and is subject to modification based on clinical developments, new data, or final imaging results. Current Inpatient Medications Medication Dose Route Frequency acetaminophen (TYLENOL) tablet 650 mg 650 mg feeding tube Q6H albuterol 0.083% (PROVENTIL,VENTOLIN) 2.5 mg /3 mL (0.083 %) nebulizer solution 2.5 mg 2.5 mg inhalation Q4H PRN alteplase (CATHFLO ACTIVASE) injection 2 mg 2 mg Intracatheter PRN artificial tears (hypromellose) (NATURES TEARS) 0.4 % ophthalmic drops 1 drop 1 drop B oth Eyes PRN ascorbic acid liquid 500 mg 500 mg feeding tube BID bisacodyl (DULCOLAX) suppository 10 mg 10 mg rectal DAILY PRN famotidine (PEPCID) tablet 20 mg 20 mg oral BID gabapentin (NEURONTIN) capsule 300 mg 300 mg oral TID guar gum (BENEFIBER) oral powder 3-4 packet 3-4 packet feeding tube DAILY lidocaine (LIDODERM) 5 %(700 mg/patch) patch 1-2 patch 1-2 patch transdermal Q24H loperamide (IMODIUM) capsule 4 mg 4 mg oral QID menthol-zinc oxide (CALAZIME) topical paste topical TID PRN metoprolol tartrate (LOPRESSOR) tablet 37.5 mg 37.5 mg feeding tube BID nystatin (MYCOSTATIN) powder topical BID oxyCODONE (immediate release) (ROXICODONE) tablet 5-10 mg 5-10 mg oral Q3H PRN potassium chloride (KAOCHLOR) liquid 20 mEq 20 mEq feeding tube TID predniSONE (DELTASONE) tablet 15 mg 15 mg feeding tube DAILY probiotic kefir (RUFUS'S KEFIR) feeding tube TID senna (SENOKOT) liquid 8.8 mg 5 mL feeding tube BID tamsulosin (FLOMAX) capsule 0.4 mg 0.4 mg oral HS warfarin (COUMADIN) tablet 5 mg 5 mg feeding tube User Specified warfarin (COUMADIN) tablet 7.5 mg 7.5 mg feeding tube User Specified zinc sulfate (ORAZINC, ZINC-220) capsule 50 mg elemental 220 mg total salt oral DAILY zolpidem (AMBIEN) tablet 5 mg 5 mg feeding tube HS PRN Lulu Griffin - 05/10/2014 12:55 PM PST Note Reason for Visit: Rounding Unit Those Present: Patient Assessment: Pt seemed discouraged and stated that she is frustrated with how long she has b een in the hospital. She misses walking and being active. Pt's has been at the [facility] supporting her. Pt is not yazdanism but appreciates support. Intervention: Provided a listening presence and explored pt's anxieties, worries and hopes. Plan: Spiritual care remains available. 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 S he is s/p ex lap, splenectomy, and packing with lap pads at OSH and from reopening of laparo sheila, evacuation of 2-3 L of intraabdominal hematoma, closure of open abdomen Interval Events: - No acute overnight events. Pt remains afebrile and other vital signs are within acceptabl e limits. Tachycardia is persistent but stable ~100/min - Pain is adequately controlled. - Wolf replaced for retention. Objective: Last Vitals: BP 139/79 | Pulse 101 | Temp 36.6 C (97.9 F) | RR 18 | Ht 1.75 m (5' 8.9") | Wt 81.103 kg (178 lb 12.8 oz) | SpO2 97% | BMI 26.48 kg/(m^2) 24 Hour Vital Min/Max: Systolic (24hrs), Av mmHg, Min:126 mmHg, Max:139 mmHg Diastolic (24hrs), Av mmHg, Min:66 mmHg, Max:79 mmHg Pulse Min: 85 Max: 113 Temp Min: 36.2 C (97.2 F) Max: 36.9 C (98.4 F) Resp Min: 18 Max: 20 SpO2 Min: 90 % Max: 98 % Intake/Output Summary (Last 24 hours) at 05/10/14 0758 Last data filed at 05/10/14 0417 Gross per 24 hour Intake 2445 ml Output 2450 ml Net -5 ml U/O: 2.4 L Physical Exam: Gen: In NAD, lying comfortably in bed. Chest: non labored breathing Abd: soft, tenderness in lower abdomen resolved, no peritoneal signs, no rebound tenderness , no involuntary guarding, ND Incisions: c/d/i, no erythema, discharge or induration. No s/s infection. Extremities: WWP Labs: Recent Labs 05/08/14 0347 05/09/14 0308 05/10/14 0339 WBC 12.96* 14.76* 13.80* HB 10.0* 10.2* 9.8* HCT 32.5* 32.8* 31.7* PLT 374 389 379 Recent Labs 04/25/14 1307 04/27/14 0433 04/29/14 0100 05/08/14 0347 05/09/14 0308 05/10/14 0002 05/10/14 0339 05/10/14 0613 NA -- < > 152* < > 144 < > 136 -- 138 -- -- 136 -- K -- < > 4.1 < > 3.7 < > 4.3 -- 4.3 -- -- 4.3 -- CL -- < > 115* < > 110* < > 102 -- 103 -- -- 101 -- BICARB -- < > 33* < > 28 < > 30 -- 31 -- -- 30 -- BUN -- < > 46* < > 37* < > 27* -- 29* -- -- 25* -- CR -- < > 0.86 < > 0.68 < > 0.46* -- 0.53* -- -- 0.46* -- GLU -- < > 86 < > 104* < > 88 < > 105* < > 106* 105* 116* CA -- < > 8.8 < > 8.6 < > 8.6 -- 8.8 -- -- 9.0 -- AST 399* -- 216* -- 80* -- -- -- -- -- -- -- -- ALT 433* -- 344* -- 184* -- -- -- -- -- -- -- -- AP 168* -- 235* -- 351* -- -- -- -- -- -- -- -- TBILI 1.5* -- 1.6* -- 1.7* -- -- -- -- -- -- -- -- TP 5.4* -- 4.8* -- 5.3* -- -- -- -- -- -- -- -- ALB 2.2* < > 1.7* | 1.7* < > 1.7* | 1.7* < > 1.9* -- 2.0* -- -- 2.0* -- < > = values in this interval not displayed. Lab Results Component Value Date MG 1.4 05/10/2014 Lab Results Component Value Date INRPT 1.99 05/10/2014 No results found for this basename: TR[facility]ONIN Imaging No new Assessment and Plan: aMckenzie Hartley is a 58 y.o. 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 She is s/p ex lap, splenectomy, and packing with lap pads at OSH and from reopening of laparoto my, evacuation of 2-3 L of intraabdominal hematoma, closure of open abdomen. Procedures: 04/24/2014 1. Reopening of laparotomy 2. Evacuation of intraabdominal hematoma 3. Lysis of adhesions 4. Control of retroperitoneal hemorrhage 5. Closure of laparotomy 6. Skin VAC placement 7. Removal of foreign bodies from peritoneal cavity Pain management - adequate control with oxycodone, gabapentin, tylenol and lidoderm patches. - sedation: none - mental status: Awake and alert CV - VSS, stable tachycardia and tachypnea on 2LNC -Myocardial: continue metoprolol 37.5 mg BID. Hypercoagulable state/splenic artery thrombosis: INR therapeutic on warfarin. Respiratory - On 2LNC - Aggressive IS/pulmonary hygiene Respiratory insufficiency: Combination of volume overload, pain medication, low respiratory reserve, improving with continued diuresis, scheduled daily diuresis from B[facility] GI Dysphagia: speech following, OK to continue thick nectars , continued DHT,TF - TF at goal - continue Impact 1.5 - will discuss changing formula and adding fiber for better control of bowel movements - cycle TF - prophylaxis: famotidine BID Chron's disease - continue predisone 15 mg daily - on remicade at home (q6 weeks), consult GI for timing of restarting remicade - she wants to find new GI team, will let us know if she wants to see the [facility] GI team - Stage I pressure wound: wolf replaced for retention 05/09 - UO good response to furosemide, stopped 05/09 ID Leukocytosis: stable, afebrile, continue to monitor, last C. Diff negative with liquid stoo ls, repeat for persistent liquid stools - negative 05/06 - related to steroids, sp splenectomy - Surgical Infection: No current evidence of infection Stage I pressure wound: wolf for urinary incontience Chem/Hem/Endo - Electrolytes: replace Mag daily - HCT/HB stable - Glycemic control adequate Prophylaxis Activity: out of bed as able. PT/OT Thromboembolism PPY: INR therapeutic on warfarin Head of bed: Elevated to 30 Ulcer Prevention: famotidine High risk, postoperative pneumonia: IS, ambulation Bowel: Scheduled and PRN bowel regimen Dispo: continue acute care. Appreciate CM discussing options with them regarding SNF placem ent. We are recommending [facility] since would be close to [facility] and she would benefit for aggres sive PT, but is reluctant to have far from home. She is ready for discharge pending placement. 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 It is accurate to the best of my knowledge, and is subject to modification based on clinical developments, new data, or final imaging results. Current Inpatient Medications Medication Dose Route Frequency acetaminophen (TYLENOL) tablet 650 mg 650 mg feeding tube Q6H albuterol 0.083% (PROVENTIL,VENTOLIN) 2.5 mg /3 mL (0.083 %) nebulizer solution 2.5 mg 2.5 mg inhalation Q4H PRN alteplase (CATHFLO ACTIVASE) injection 2 mg 2 mg Intracatheter PRN artificial tears (hypromellose) (NATURES TEARS) 0.4 % ophthalmic drops 1 drop 1 drop B oth Eyes PRN ascorbic acid liquid 500 mg 500 mg feeding tube BID bisacodyl (DULCOLAX) suppository 10 mg 10 mg rectal DAILY PRN famotidine (PEPCID) suspension 20 mg 20 mg feeding tube BID gabapentin (NEURONTIN) liquid 300 mg 300 mg feeding tube TID lidocaine (LIDODERM) 5 %(700 mg/patch) patch 1-2 patch 1-2 patch transdermal Q24H loperamide (IMODIUM A-D) 1 mg/7.5 mL liquid 4 mg 4 mg feeding tube Q8H menthol-zinc oxide (CALAZIME) topical paste topical TID PRN metoprolol tartrate (LOPRESSOR) tablet 37.5 mg 37.5 mg feeding tube BID nystatin (MYCOSTATIN) powder topical BID oxyCODONE (immediate release) (ROXICODONE) liquid 2.5-7.5 mg 2.5-7.5 mg feeding tube Q 3H PRN potassium chloride (KAOCHLOR) liquid 20 mEq 20 mEq feeding tube TID predniSONE (DELTASONE) tablet 15 mg 15 mg feeding tube DAILY probiotic kefir (RUFUS'S KEFIR) feeding tube TID senna (SENOKOT) liquid 8.8 mg 5 mL feeding tube BID tamsulosin (FLOMAX) capsule 0.4 mg 0.4 mg oral HS warfarin (COUMADIN) tablet 5 mg 5 mg feeding tube QPM zinc sulfate 44 mg/mL solution 110 mg 110 mg feeding tube DAILY zolpidem (AMBIEN) tablet 5 mg 5 mg feeding tube HS PRN Andrew Elliott Md - 05/09/2014 3:51 PM PSTFormatting of this note might be different from the orig [facility]. 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 S he is s/p ex lap, splenectomy, and packing with lap pads at OSH and from reopening of laparo sheila, evacuation of 2-3 L of intraabdominal hematoma, closure of open abdomen Interval Events: - No acute overnight events. Pt remains afebrile and other vital signs are within acceptabl e limits. Tachycardia is persistent but stable - Pain is adequately controlled. Reports new pain in lower abdomen. She had urinary retenti on and required straight cath X3 Objective: Last Vitals: BP 145/74 | Pulse 107 | Temp 36.6 C (97.9 F) | RR 16 | Ht 1.75 m (5' 8.9") | Wt 81.103 kg (178 lb 12.8 oz) | SpO2 96% | BMI 26.48 kg/(m^2) 24 Hour Vital Min/Max: Systolic (24hrs), Av mmHg, Min:136 mmHg, Max:149 mmHg Diastolic (24hrs), Av mmHg, Min:74 mmHg, Max:88 mmHg Pulse Min: 83 Max: 111 Temp Min: 36.3 C (97.3 F) Max: 37 C (98.6 F) Resp Min: 16 Max: 16 SpO2 Min: 94 % Max: 97 % Intake/Output Summary (Last 24 hours) at 05/09/14 1551 Last data filed at 05/09/14 1525 Gross per 24 hour Intake 1590 ml Output 3600 ml Net -2010 ml U/O: 2.4 L Physical Exam: Gen: In NAD, lying comfortably in bed. Chest: non labored breathing Abd: soft, tenderness in lower abdomen, no peritoneal signs, no rebound tenderness, no invo luntary guarding, ND Incisions: c/d/i, no erythema, discharge or induration. No s/s infection. Extremities: WWP Labs: Recent Labs 05/07/14 0315 05/08/14 0347 05/09/14 0308 WBC 14.14* 12.96* 14.76* HB 10.0* 10.0* 10.2* HCT 31.9* 32.5* 32.8* PLT 364 374 389 Recent Labs 04/25/14 1307 04/27/14 0433 04/29/14 0100 05/07/14 0315 05/08/14 0347 05/09/14 0308 05/09/14 0610 05/09/14 1522 NA -- < > 152* < > 144 < > 138 -- 136 -- 138 -- -- K -- < > 4.1 < > 3.7 < > 4.1 -- 4.3 -- 4.3 -- -- CL -- < > 115* < > 110* < > 105 -- 102 -- 103 -- -- BICARB -- < > 33* < > 28 < > 29 -- 30 -- 31 -- -- BUN -- < > 46* < > 37* < > 28* -- 27* -- 29* -- -- CR -- < > 0.86 < > 0.68 < > 0.48* -- 0.46* -- 0.53* -- -- GLU -- < > 86 < > 104* < > 99 < > 88 < > 105* 119* 176* CA -- < > 8.8 < > 8.6 < > 8.6 -- 8.6 -- 8.8 -- -- AST 399* -- 216* -- 80* -- -- -- -- -- -- -- -- ALT 433* -- 344* -- 184* -- -- -- -- -- -- -- -- AP 168* -- 235* -- 351* -- -- -- -- -- -- -- -- TBILI 1.5* -- 1.6* -- 1.7* -- -- -- -- -- -- -- -- TP 5.4* -- 4.8* -- 5.3* -- -- -- -- -- -- -- -- ALB 2.2* < > 1.7* | 1.7* < > 1.7* | 1.7* < > 1.8* -- 1.9* -- 2.0* -- -- < > = values in this interval not displayed. Lab Results Component Value Date MG 1.8 05/09/2014 Lab Results Component Value Date INRPT 2.29 05/09/2014 No results found for this basename: TROPONIN Imaging No new Cultures BLOOD CULTURE [facility] (no units) Date Value Range Status 04/26/2014 Final Value: Final Report:No Bacteria or Yeast isolated at 5 days. This is a corrected result. Previous result was No growth to date. on 04/28/2014t 0016 PST . CULT, URINE SCREEN (no units) Date Value Range Status 05/03/2014 Negative Negative Final CULTURE RESULT (no units) Date Value Range Status 03/24/2012 Final Value: C UrineSource: U Midstream FinalCULTURE RESULT:< 10,000 cfu/ml Insi gnificant growth Assessment and Plan: Mackenzie Hartley is a 58 y.o. 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 She is s/p ex lap, splenectomy, and packing with lap pads at OSH and from reopening of laparoto my, evacuation of 2-3 L of intraabdominal hematoma, closure of open abdomen. Procedures: 04/24/2014 1. Reopening of laparotomy 2. Evacuation of intraabdominal hematoma 3. Lysis of adhesions 4. Control of retroperitoneal hemorrhage 5. Closure of laparotomy 6. Skin VAC placement 7. Removal of foreign bodies from peritoneal cavity Pain management - adequate control with oxycodone, gabapentin, tylenol and lidoderm patches. - sedation: none - mental status: Awake and alert CV - VSS, stable tachycardia and tachypnea on 3LNC -Myocardial: continue metoprolol 37.5 mg BID. Hypercoagulable state/splenic artery thrombosis: on theraputic lovenox - INR therapeutic x2 , stop Lovenox. Respiratory - On 2LNC - Aggressive IS/pulmonary hygiene Respiratory insufficiency: Combination of volume overload, pain medication, low respiratory reserve, improving with continued diuresis, scheduled daily diuresis from B[facility] GI Dysphagia: speech following, OK to continue thick nectars , continued DHT,TF - TF at goal - continue Impact 1.5 - prophylaxis: famotidine BID Chron's disease - continue predisone 15 mg daily - on remicade at home (q6 weeks), consult GI for timing of restarting remicade - she wants to find new GI team, will let us know if she wants to see the [facility] GI team - Stage I pressure wound: wolf removed but had retention, will replace - UO good response to furosemide - has had great UO, edema resolved, will stop furosemide ID Leukocytosis: stable, afebrile, continue to monitor, last C. Diff negative with liquid stoo ls, repeat for persistent liquid stools - negative 05/06 - related to steroids, sp splenectomy - Surgical Infection: No current evidence of infection Stage I pressure wound: wolf for urinary incontience Chem/Hem/Endo - Electrolytes: stable - HCT/HB stable - Glycemic control adequate Prophylaxis Activity: out of bed as able. PT/OT Thromboembolism PPY: INR therapeutic on warfarin Head of bed: Elevated to 30 Ulcer Prevention: famotidine High risk, postoperative pneumonia: IS, ambulation Bowel: Scheduled and PRN bowel regimen Dispo: continue acute care. Appreciate CM discussing options with them regarding SNF placem ent. We are recommending [facility] since would be close to [facility] and she would benefit for aggres sive PT, but is reluctant to have far from home. She is ready for discharge pending placement. 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 It is accurate to the best of my knowledge, and is subject to modification based on clinical developments, new data, or final imaging results. Current Inpatient Medications Medication Dose Route Frequency acetaminophen (TYLENOL) tablet 650 mg 650 mg feeding tube Q6H albuterol 0.083% (PROVENTIL,VENTOLIN) 2.5 mg /3 mL (0.083 %) nebulizer solution 2.5 mg 2.5 mg inhalation Q4H PRN alteplase (CATHFLO ACTIVASE) injection 2 mg 2 mg Intracatheter PRN artificial tears (hypromellose) (NATURES TEARS) 0.4 % ophthalmic drops 1 drop 1 drop B oth Eyes PRN ascorbic acid liquid 500 mg 500 mg feeding tube BID bisacodyl (DULCOLAX) suppository 10 mg 10 mg rectal DAILY PRN famotidine (PEPCID) suspension 20 mg 20 mg feeding tube BID gabapentin (NEURONTIN) liquid 300 mg 300 mg feeding tube TID lidocaine (LIDODERM) 5 %(700 mg/patch) patch 1-2 patch 1-2 patch transdermal Q24H loperamide (IMODIUM A-D) 1 mg/7.5 mL liquid 4 mg 4 mg feeding tube Q8H menthol-zinc oxide (CALAZIME) topical paste topical TID PRN metoprolol tartrate (LOPRESSOR) tablet 37.5 mg 37.5 mg feeding tube BID nystatin (MYCOSTATIN) powder topical BID oxyCODONE (immediate release) (ROXICODONE) liquid 2.5-7.5 mg 2.5-7.5 mg feeding tube Q 3H PRN potassium chloride (KAOCHLOR) liquid 20 mEq 20 mEq feeding tube TID predniSONE (DELTASONE) tablet 15 mg 15 mg feeding tube DAILY probiotic kefir (RUFUS'S KEFIR) feeding tube TID senna (SENOKOT) liquid 8.8 mg 5 mL feeding tube BID tamsulosin (FLOMAX) capsule 0.4 mg 0.4 mg oral HS warfarin (COUMADIN) tablet 5 mg 5 mg feeding tube QPM zinc sulfate 44 mg/mL solution 110 mg 110 mg feeding tube DAILY Andrew Elliott Md - 05/08/2014 4:30 PM PSTFormatting of this note might be different from the orig inal. 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 S he is s/p ex lap, splenectomy, and packing with lap pads at OSH and from reopening of laparo sheila, evacuation of 2-3 L of intraabdominal hematoma, closure of open abdomen Interval Events: - No acute overnight events. Pt remains afebrile and other vital signs are within acceptabl e limits. Tachycardia is persistent but stable - Pain is adequately controlled. Reports new pain in lower abdomen Objective: Last Vitals: BP 137/71 | Pulse 86 | Temp 37 C (98.6 F) | RR 18 | Ht 1.75 m (5' 8.9") | Wt 81.103 kg (178 lb 12.8 oz) | SpO2 95% | BMI 26.48 kg/(m^2) 24 Hour Vital Min/Max: Systolic (24hrs), Av mmHg, Min:136 mmHg, Max:141 mmHg Diastolic (24hrs), Av mmHg, Min:71 mmHg, Max:84 mmHg Pulse Min: 78 Max: 97 Temp Min: 36.4 C (97.5 F) Max: 37 C (98.6 F) Resp Min: 16 Max: 20 SpO2 Min: 92 % Max: 97 % Intake/Output Summary (Last 24 hours) at 05/08/14 1630 Last data filed at 05/08/14 0900 Gross per 24 hour Intake 1245 ml Output 3200 ml Net -1955 ml U/O: 4.6 L Physical Exam: Gen: In NAD, lying comfortably in bed. Chest: non labored breathing Abd: soft, tenderness in lower abdomen, no peritoneal signs, no rebound tenderness, no invo luntary guarding, ND Incisions: c/d/i, no erythema, discharge or induration. No s/s infection. Extremities: WWP Labs: Recent Labs 05/06/14 0314 05/07/14 0315 05/08/14 0347 WBC 16.66* 14.14* 12.96* HB 10.1* 10.0* 10.0* HCT 33.0* 31.9* 32.5* PLT 346 364 374 Recent Labs 04/25/14 1307 04/27/14 0433 04/29/14 0100 05/06/144 05/07/145 05/08/14 0031 05/08/14 0347 05/08/14 0621 NA -- < > 152* < > 144 < > 137 -- 138 -- -- 136 -- K -- < > 4.1 < > 3.7 < > 4.4 -- 4.1 -- -- 4.3 -- CL -- < > 115* < > 110* < > 105 -- 105 -- -- 102 -- BICARB -- < > 33* < > 28 < > 26 -- 29 -- -- 30 -- BUN -- < > 46* < > 37* < > 31* -- 28* -- -- 27* -- CR -- < > 0.86 < > 0.68 < > 0.51* -- 0.48* -- -- 0.46* -- GLU -- < > 86 < > 104* < > 103* < > 99 < > 107* 88 92 CA -- < > 8.8 < > 8.6 < > 8.4* -- 8.6 -- -- 8.6 -- AST 399* -- 216* -- 80* -- -- -- -- -- -- -- -- ALT 433* -- 344* -- 184* -- -- -- -- -- -- -- -- AP 168* -- 235* -- 351* -- -- -- -- -- -- -- -- TBILI 1.5* -- 1.6* -- 1.7* -- -- -- -- -- -- -- -- TP 5.4* -- 4.8* -- 5.3* -- -- -- -- -- -- -- -- ALB 2.2* < > 1.7* | 1.7* < > 1.7* | 1.7* < > 1.8* -- 1.8* -- -- 1.9* -- < > = values in this interval not displayed. Lab Results Component Value Date MG 2.1 05/08/2014 Lab Results Component Value Date INRPT 2.04 05/08/2014 No results found for this basename: TROPONIN Imaging No new Cultures BLOOD CULTURE [facility] (no units) Date Value Range Status 04/26/2014 Final Value: Final Report:No Bacteria or Yeast isolated at 5 days. This is a corrected result. Previous result was No growth to date. on 04/28/2014t 0016 PST . CULT, URINE SCREEN (no units) Date Value Range Status 05/03/2014 Negative Negative Final CULTURE RESULT (no units) Date Value Range Status 03/24/2012 Final Value: C UrineSource: U Midstream FinalCULTURE RESULT:< 10,000 cfu/ml Insi gnificant growth Assessment and Plan: Mackenzie Hartley is a 58 y.o. 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 She is s/p ex lap, splenectomy, and packing with lap pads at OSH and from reopening of laparoto my, evacuation of 2-3 L of intraabdominal hematoma, closure of open abdomen. Procedures: 04/24/2014 1. Reopening of laparotomy 2. Evacuation of intraabdominal hematoma 3. Lysis of adhesions 4. Control of retroperitoneal hemorrhage 5. Closure of laparotomy 6. Skin VAC placement 7. Removal of foreign bodies from peritoneal cavity Pain management - adequate control with oxycodone, gabapentin, tylenol and lidoderm patches. - sedation: none - mental status: Awake and alert CV - VSS, stable tachycardia and tachypnea on 3LNC -Myocardial: continue metoprolol 37.5 mg BID. Hypercoagulable state/splenic artery thrombosis: on theraputic lovenox ( bridge to coumadin ), INR 1.5, continue for now, appreciate heme reccs Respiratory - On 2LNC - Aggressive IS/pulmonary hygiene Respiratory insufficiency: Combination of volume overload, pain medication, low respiratory reserve, improving with continued diuresis, scheduled daily diuresis from BID GI Dysphagia: speech following, OK to continue thick nectars , continued DHT,TF - TF at goal - prophylaxis: famotidine BID Chron's disease - continue predisone 15 mg daily - on remicade at home (q6 weeks), consult GI for timing of restarting remicade - she wants to find new GI team, will let us know if she wants to see the [facility] GI team - Stage I pressure wound: wolf removed - UO good response to furosemide - decrease furosemide to 20 mg daily ID Leukocytosis: continue to improve, afebrile, continue to monitor, last C. Diff negative wit h liquid stools, repeat for persistent liquid stools - negative 05/06 - related to steroids, sp splenectomy - Surgical Infection: No current evidence of infection Stage I pressure wound: wolf for urinary incontience Chem/Hem/Endo - Electrolytes: stable - HCT/HB stable - Glycemic control adequate Prophylaxis Activity: out of bed as able. PT/OT Thromboembolism PPY: on therapeutic Lovenox and started on warfarin 04/28, INR therapeutic t gloria Head of bed: Elevated to 30 Ulcer Prevention: famotidine High risk, postoperative pneumonia: IS, ambulation Bowel: Scheduled and PRN bowel regimen Dispo: continue acute care. Appreciate CM discussing options with them regarding SNF placem ent. We are recommending [facility] since would be close to [facility] and she would benefit for aggres sive PT, but is reluctant to have far from home. She is ready for discharge pending placement. 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 It is accurate to the best of my knowledge, and is subject to modification based on clinical developments, new data, or final imaging results. Current Inpatient Medications Medication Dose Route Frequency acetaminophen (TYLENOL) tablet 650 mg 650 mg feeding tube Q6H albuterol 0.083% (PROVENTIL,VENTOLIN) 2.5 mg /3 mL (0.083 %) nebulizer solution 2.5 mg 2.5 mg inhalation Q4H PRN alteplase (CATHFLO ACTIVASE) injection 2 mg 2 mg Intracatheter PRN artificial tears (hypromellose) (NATURES TEARS) 0.4 % ophthalmic drops 1 drop 1 drop B oth Eyes PRN ascorbic acid liquid 500 mg 500 mg feeding tube BID bisacodyl (DULCOLAX) suppository 10 mg 10 mg rectal DAILY PRN enoxaparin (LOVENOX) injection 90 mg 1 mg/kg subcutaneous Q12H (Scheduled) famotidine (PEPCID) suspension 20 mg 20 mg feeding tube BID furosemide (LASIX) liquid 20 mg 20 mg feeding tube DAILY gabapentin (NEURONTIN) liquid 300 mg 300 mg feeding tube TID lidocaine (LIDODERM) 5 %(700 mg/patch) patch 1-2 patch 1-2 patch transdermal Q24H loperamide (IMODIUM A-D) 1 mg/7.5 mL liquid 4 mg 4 mg feeding tube Q8H menthol-zinc oxide (CALAZIME) topical paste topical TID PRN metoprolol tartrate (LOPRESSOR) tablet 37.5 mg 37.5 mg feeding tube BID nystatin (MYCOSTATIN) powder topical BID oxyCODONE (immediate release) (ROXICODONE) liquid 2.5-7.5 mg 2.5-7.5 mg feeding tube Q 3H PRN potassium chloride (KAOCHLOR) liquid 20 mEq 20 mEq feeding tube TID predniSONE (DELTASONE) tablet 15 mg 15 mg feeding tube DAILY probiotic kefir (RUFUS'S KEFIR) feeding tube TID senna (SENOKOT) liquid 8.8 mg 5 mL feeding tube BID warfarin (COUMADIN) tablet 5 mg 5 mg feeding tube QPM zinc sulfate 44 mg/mL solution 110 mg 110 mg feeding tube DAILY Luz Vincent Md, Andrew - 05/07/2014 1:42 PM PSTFormatting of this note might be different from the [facility] Department of Surgery Progress Note Author: Andrew Vincent MD General Surgery Resident Attending Physician: Jf Wiseman MD GENERAL SURGERY Progress Note: Hospital Day #: 14 ATTENDING: Jf Wiseman MD Identification: Mackenzie Hartley is a 58 year old female with COPD, Crohn's disease, chronic pa in, and 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 S he is s/p ex lap, splenectomy, and packing with lap pads at OSH and from reopening of laparo sheila, evacuation of 2-3 L of intraabdominal hematoma, closure of open abdomen Interval Events: - No acute overnight events. Pt remains afebrile and other vital signs are within acceptabl e limits. Tachycardia is persistent but stable - Pain is adequately controlled. Objective: Last Vitals: BP 136/76 | Pulse 93 | Temp 36.4 C (97.5 F) | RR 18 | Ht 1.75 m (5' 8.9") | Wt 81.103 kg (178 lb 12.8 oz) | SpO2 100% | BMI 26.48 kg/(m^2) 24 Hour Vital Min/Max: Systolic (24hrs), Av mmHg, Min:135 mmHg, Max:144 mmHg Diastolic (24hrs), Av mmHg, Min:67 mmHg, Max:88 mmHg Pulse Min: 93 Max: 105 Temp Min: 36.4 C (97.5 F) Max: 37 C (98.6 F) Resp Min: 16 Max: 20 SpO2 Min: 95 % Max: 100 % Intake/Output Summary (Last 24 hours) at 05/07/14 1342 Last data filed at 05/07/14 1217 Gross per 24 hour Intake 1665 ml Output 2700 ml Net -1035 ml U/O: 3.8 L Physical Exam: Gen: In NAD, lying comfortably in bed. Chest: mildly tachypneic, tachy to 110's Abd: soft, appropriately tender, ND Incisions: c/d/i, no erythema, discharge or induration. No s/s infection. Extremities: WWP Labs: Recent Labs 05/05/1434705/06/1431305/07/14314 WBC 21.64* | 21.38* 16.66* 14.14* HB 9.5* | 9.5* 10.1* 10.0* HCT 30.8* | 30.8* 33.0* 31.9* PLT 296 | 276 346 364 Recent Labs 04/25/14 1307 04/27/14 0433 04/29/14 0100 05/05/148 05/06/1431305/07/14 0017 05/07/1431405/07/14 0608 NA -- < > 152* < > 144 < > 138 137 -- -- 138 -- K -- < > 4.1 < > 3.7 < > 3.9 4.4 -- -- 4.1 -- CL -- < > 115* < > 110* < > 107 105 -- -- 105 -- BICARB -- < > 33* < > 28 < > 27 26 -- -- 29 -- BUN -- < > 46* < > 37* < > 33* 31* -- -- 28* -- CR -- < > 0.86 < > 0.68 < > 0.67 0.51* -- -- 0.48* -- GLU -- < > 86 < > 104* < > 102* 103* < > 95 99 112* CA -- < > 8.8 < > 8.6 < > 8.4* 8.4* -- -- 8.6 -- AST 399* -- 216* -- 80* -- -- -- -- -- -- -- ALT 433* -- 344* -- 184* -- -- -- -- -- -- -- AP 168* -- 235* -- 351* -- -- -- -- -- -- -- TBILI 1.5* -- 1.6* -- 1.7* -- -- -- -- -- -- -- TP 5.4* -- 4.8* -- 5.3* -- -- -- -- -- -- -- ALB 2.2* < > 1.7* | 1.7* < > 1.7* | 1.7* < > 1.8* 1.8* -- -- 1.8* -- < > = values in this interval not displayed. Lab Results Component Value Date MG 1.6 05/07/2014 Lab Results Component Value Date INRPT 1.69 05/07/2014 No results found for this basename: TROPONIN Imaging No new Cultures BLOOD CULTURE [facility] (no units) Date Value Range Status 04/26/2014 Final Value: Final Report:No Bacteria or Yeast isolated at 5 days. This is a corrected result. Previous result was No growth to date. on 04/28/2014t 0016 PST . CULT, URINE SCREEN (no units) Date Value Range Status 05/03/2014 Negative Negative Final CULTURE RESULT (no units) Date Value Range Status 03/24/2012 Final Value: C UrineSource: U Midstream FinalCULTURE RESULT:< 10,000 cfu/ml Insi gnificant growth Assessment and Plan: Mackenzie Hartley is a 58 y.o. 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 She is s/p ex lap, splenectomy, and packing with lap pads at OSH and from reopening of laparoto my, evacuation of 2-3 L of intraabdominal hematoma, closure of open abdomen. Procedures: 04/24/2014 1. Reopening of laparotomy 2. Evacuation of intraabdominal hematoma 3. Lysis of adhesions 4. Control of retroperitoneal hemorrhage 5. Closure of laparotomy 6. Skin VAC placement 7. Removal of foreign bodies from peritoneal cavity Pain management - adequate control with oxycodone, gabapentin, tylenol and lidoderm patches. - sedation: none - mental status: Awake and alert CV - VSS, stable tachycardia and tachypnea on 3LNC -Myocardial: continue metoprolol 37.5 mg BID. Hypercoagulable state/splenic artery thrombosis: on theraputic lovenox ( bridge to coumadin ), INR 1.5, continue for now, appreciate heme reccs Respiratory - On 2LNC - Aggressive IS/pulmonary hygiene Respiratory insufficiency: Combination of volume overload, pain medication, low respiratory reserve, improving with continued diuresis, scheduled daily diuresis from BID GI Dysphagia: speech following, OK for thick nectars today, continued DHT,TF - TF at goal - prophylaxis: famotidine BID Chron's disease - continue predisone 15 mg daily - on remicade at home (q6 weeks), consult GI for timing of restarting remicade - Stage I pressure wound: wolf for urinary incontience - UO good response to furosemide - decrease furosemide to 20 mg daily ID Leukocytosis: continue to improve, afebrile, continue to monitor, last C. Diff negative wit h liquid stools, repeat for persistent liquid stools - negative 05/06 - related to steroids, sp splenectomy - Surgical Infection: No current evidence of infection Stage I pressure wound: wolf for urinary incontience Chem/Hem/Endo - Electrolytes: stable, replaced magnesium - HCT/HB stable - Glycemic control adequate Prophylaxis Activity: out of bed as able. PT/OT Thromboembolism PPY: on therapeutic Lovenox and started on warfarin 04/28 Head of bed: Elevated to 30 Ulcer Prevention: famotidine High risk, postoperative pneumonia: IS, ambulation Bowel: Scheduled and PRN bowel regimen Dispo: continue acute care. 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 It is accurate to the best of my knowledge, and is subject to modification based on clinical developments, new data, or final imaging results. Current Inpatient Medications Medication Dose Route Frequency acetaminophen (TYLENOL) tablet 650 mg 650 mg feeding tube Q6H albuterol 0.083% (PROVENTIL,VENTOLIN) 2.5 mg /3 mL (0.083 %) nebulizer solution 2.5 mg 2.5 mg inhalation Q4H PRN alteplase (CATHFLO ACTIVASE) injection 2 mg 2 mg Intracatheter PRN artificial tears (hypromellose) (NATURES TEARS) 0.4 % ophthalmic drops 1 drop 1 drop B oth Eyes PRN ascorbic acid liquid 500 mg 500 mg feeding tube BID bisacodyl (DULCOLAX) suppository 10 mg 10 mg rectal DAILY PRN enoxaparin (LOVENOX) injection 90 mg 1 mg/kg subcutaneous Q12H (Scheduled) famotidine (PEPCID) suspension 20 mg 20 mg feeding tube BID furosemide (LASIX) liquid 20 mg 20 mg feeding tube DAILY gabapentin (NEURONTIN) liquid 300 mg 300 mg feeding tube TID lidocaine (LIDODERM) 5 %(700 mg/patch) patch 1-2 patch 1-2 patch transdermal Q24H loperamide (IMODIUM A-D) 1 mg/7.5 mL liquid 4 mg 4 mg feeding tube Q8H menthol-zinc oxide (CALAZIME) topical paste topical TID PRN metoprolol tartrate (LOPRESSOR) tablet 37.5 mg 37.5 mg feeding tube BID nystatin (MYCOSTATIN) powder topical BID oxyCODONE (immediate release) (ROXICODONE) liquid 2.5-7.5 mg 2.5-7.5 mg feeding tube Q 3H PRN potassium chloride (KAOCHLOR) liquid 20 mEq 20 mEq feeding tube TID predniSONE (DELTASONE) tablet 15 mg 15 mg feeding tube DAILY probiotic kefir (RUFUS'S KEFIR) feeding tube TID senna (SENOKOT) liquid 8.8 mg 5 mL feeding tube BID warfarin (COUMADIN) tablet 7.5 mg 7.5 mg feeding tube QPM zinc sulfate 44 mg/mL solution 110 mg 110 mg feeding tube DAILY Andrew Elliott Md - 05/06/2014 5:55 PM PSTFormatting of this note might be different from the orig [facility]. 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 S he is s/p ex lap, splenectomy, and packing with lap pads at OSH and from reopening of laparo sheila, evacuation of 2-3 L of intraabdominal hematoma, closure of open abdomen Interval Events: - No acute overnight events. Pt remains afebrile and other vital signs are within acceptabl e limits. Tachycardia is persistent but stable - Pain is adequately controlled. Objective: Last Vitals: BP 145/72 | Pulse 98 | Temp 36.8 C (98.2 F) | RR 18 | Ht 1.75 m (5' 8.9") | Wt 81.103 kg (178 lb 12.8 oz) | SpO2 96% | BMI 26.48 kg/(m^2) 24 Hour Vital Min/Max: Systolic (24hrs), Av mmHg, Min:131 mmHg, Max:145 mmHg Diastolic (24hrs), Av mmHg, Min:72 mmHg, Max:107 mmHg Pulse Min: 96 Max: 110 Temp Min: 36.4 C (97.5 F) Max: 36.8 C (98.2 F) Resp Min: 18 Max: 24 SpO2 Min: 92 % Max: 98 % Intake/Output Summary (Last 24 hours) at 05/06/14 1755 Last data filed at 05/06/14 1648 Gross per 24 hour Intake 1370 ml Output 3750 ml Net -2380 ml U/O: 4.1 L Physical Exam: Gen: In NAD, lying comfortably in bed. Chest: mildly tachypneic, tachy to 110's Abd: soft, appropriately tender, ND Incisions: c/d/i, no erythema, discharge or induration. No s/s infection. Extremities: WWP Labs: Recent Labs 05/04/14 0330 05/05/1434705/06/14313 WBC 24.21* 21.64* | 21.38* 16.66* HB 9.3* 9.5* | 9.5* 10.1* HCT 30.1* 30.8* | 30.8* 33.0* PLT 251 296 | 276 346 Recent Labs 04/25/14 1307 04/27/14 0433 04/29/14 0100 05/04/14 0330 05/05/1434705/06/1431305/06/14 1131 NA -- < > 152* < > 144 < > 140 138 137 -- K -- < > 4.1 < > 3.7 < > 3.7 3.9 4.4 -- CL -- < > 115* < > 110* < > 106 107 105 -- BICARB -- < > 33* < > 28 < > 28 27 26 -- BUN -- < > 46* < > 37* < > 36* 33* 31* -- CR -- < > 0.86 < > 0.68 < > 0.76 0.67 0.51* -- GLU -- < > 86 < > 104* < > 106* 102* 103* 124* CA -- < > 8.8 < > 8.6 < > 8.5* 8.4* 8.4* -- AST 399* -- 216* -- 80* -- -- -- -- -- ALT 433* -- 344* -- 184* -- -- -- -- -- AP 168* -- 235* -- 351* -- -- -- -- -- TBILI 1.5* -- 1.6* -- 1.7* -- -- -- -- -- TP 5.4* -- 4.8* -- 5.3* -- -- -- -- -- ALB 2.2* < > 1.7* | 1.7* < > 1.7* | 1.7* < > 1.7* 1.8* 1.8* -- < > = values in this interval not displayed. Lab Results Component Value Date MG 2.0 05/06/2014 Lab Results Component Value Date INRPT 1.59 05/06/2014 No results found for this basename: TROPONIN Imaging No new Cultures BLOOD CULTURE [facility] (no units) Date Value Range Status 04/26/2014 Final Value: Final Report:No Bacteria or Yeast isolated at 5 days. This is a corrected result. Previous result was No growth to date. on 04/28/2014t 0016 PST . CULT, URINE SCREEN (no units) Date Value Range Status 05/03/2014 Negative Negative Final CULTURE RESULT (no units) Date Value Range Status 03/24/2012 Final Value: C UrineSource: U Midstream FinalCULTURE RESULT:< 10,000 cfu/ml Insi gnificant growth Assessment and Plan: Mackenzie Hartley is a 58 y.o. 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 She is s/p ex lap, splenectomy, and packing with lap pads at OSH and from reopening of laparoto my, evacuation of 2-3 L of intraabdominal hematoma, closure of open abdomen. Procedures: 04/24/2014 1. Reopening of laparotomy 2. Evacuation of intraabdominal hematoma 3. Lysis of adhesions 4. Control of retroperitoneal hemorrhage 5. Closure of laparotomy 6. Skin VAC placement 7. Removal of foreign bodies from peritoneal cavity Pain management - adequate control with oxycodone, gabapentin, tylenol and lidoderm patches. - sedation: none - mental status: Awake and alert CV - VSS, stable tachycardia and tachypnea on 3LNC -Myocardial: continue metoprolol 37.5 mg BID. 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 Diff negative with liquid s tools, repeat for persistent liquid stools - continue to monitor, s/p splenectomy - related to steroids, sp splenectomy - Surgical Infection: No current evidence of infection Stage I pressure wound: wolf for urinary incontience Chem/Hem/Endo - Electrolytes: stable - HCT/HB stable - Glycemic control adequate Prophylaxis Activity: out of bed as able. PT/OT Thromboembolism PPY: on therapeutic Lovenox and started on warfarin 04/28 Head of bed: Elevated to 30 Ulcer Prevention: famotidine High risk, postoperative pneumonia: IS, ambulation Bowel: Scheduled and PRN bowel regimen Dispo: continue acute care. 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 It is accurate to the best of my knowledge, and is subject to modification based on clinical developments, new data, or final imaging results. Current Inpatient Medications Medication Dose Route Frequency acetaminophen (TYLENOL) tablet 650 mg 650 mg feeding tube Q6H albuterol 0.083% (PROVENTIL,VENTOLIN) 2.5 mg /3 mL (0.083 %) nebulizer solution 2.5 mg 2.5 mg inhalation Q4H PRN alteplase (CATHFLO ACTIVASE) injection 2 mg 2 mg Intracatheter PRN artificial tears (hypromellose) (NATURES TEARS) 0.4 % ophthalmic drops 1 drop 1 drop B oth Eyes PRN ascorbic acid liquid 500 mg 500 mg feeding tube BID bisacodyl (DULCOLAX) suppository 10 mg 10 mg rectal DAILY PRN enoxaparin (LOVENOX) injection 90 mg 1 mg/kg subcutaneous Q12H (Scheduled) famotidine (PEPCID) suspension 20 mg 20 mg feeding tube BID furosemide (LASIX) liquid 40 mg 40 mg feeding tube DAILY gabapentin (NEURONTIN) liquid 300 mg 300 mg feeding tube TID lidocaine (LIDODERM) 5 %(700 mg/patch) patch 1-2 patch 1-2 patch transdermal Q24H loperamide (IMODIUM A-D) 1 mg/7.5 mL liquid 4 mg 4 mg feeding tube Q8H menthol-zinc oxide (CALAZIME) topical paste topical TID PRN metoprolol tartrate (LOPRESSOR) tablet 37.5 mg 37.5 mg feeding tube BID nystatin (MYCOSTATIN) powder topical BID oxyCODONE (immediate release) (ROXICODONE) liquid 2.5-7.5 mg 2.5-7.5 mg feeding tube Q 3H PRN potassium chloride (KAOCHLOR) liquid 20 mEq 20 mEq feeding tube TID predniSONE (DELTASONE) tablet 15 mg 15 mg feeding tube DAILY probiotic kefir (RUFUS'S KEFIR) feeding tube TID senna (SENOKOT) liquid 8.8 mg 5 mL feeding tube BID warfarin (COUMADIN) tablet 7.5 mg 7.5 mg feeding tube QPM zinc sulfate 44 mg/mL solution 110 mg 110 mg feeding tube DAILY Andrew Elliott Md - 05/05/2014 2:39 PM PSTFormatting of this note might be different from the orig inal. 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 S he is s/p ex lap, splenectomy, and packing with lap pads at OSH and from reopening of laparo sheila, evacuation of 2-3 L of intraabdominal hematoma, closure of open abdomen Interval Events: - No acute overnight events. Pt remains afebrile and other vital signs are within acceptabl e limits. Tachycardia is persistent but stable - Pain is adequately controlled. - started on thick nectars per SPL, made NPO today for risk of aspiration. Objective: Last Vitals: BP 140/71 | Pulse 101 | Temp 36.7 C (98.1 F) | RR 16 | Ht 1.75 m (5' 8.9") | Wt 81.103 kg (178 lb 12.8 oz) | SpO2 91% | BMI 26.48 kg/(m^2) 24 Hour Vital Min/Max: Systolic (24hrs), Av mmHg, Min:136 mmHg, Max:146 mmHg Diastolic (24hrs), Av mmHg, Min:71 mmHg, Max:85 mmHg Pulse Min: 101 Max: 115 Temp Min: 36.3 C (97.3 F) Max: 36.8 C (98.2 F) Resp Min: 15 Max: 16 SpO2 Min: 91 % Max: 96 % Intake/Output Summary (Last 24 hours) at 05/05/14 1439 Last data filed at 05/05/14 1200 Gross per 24 hour Intake 1455 ml Output 4150 ml Net -2695 ml U/O: 3.2 L Physical Exam: Gen: In NAD, lying comfortably in bed. Chest: mildly tachypneic, tachy to 110's Abd: soft, appropriately tender, ND Incisions: c/d/i, no erythema, discharge or induration. No s/s infection. Extremities: WWP Labs: Recent Labs 05/03/14 0359 05/04/14 0330 05/05/14 0348 WBC 22.17* 24.21* 21.64* | 21.38* HB 9.1* 9.3* 9.5* | 9.5* HCT 29.5* 30.1* 30.8* | 30.8* PLT 203 251 296 | 276 Recent Labs 04/25/14 1307 04/27/14 0433 04/29/14 0100 05/03/14 0359 05/03/14 1853 05/04/14 0330 05/05/14 0348 NA -- < > 152* < > 144 < > 140 -- 140 138 K -- < > 4.1 < > 3.7 < > 3.5 -- 3.7 3.9 CL -- < > 115* < > 110* < > 105 -- 106 107 BICARB -- < > 33* < > 28 < > 27 -- 28 27 BUN -- < > 46* < > 37* < > 34* -- 36* 33* CR -- < > 0.86 < > 0.68 < > 0.83 -- 0.76 0.67 GLU -- < > 86 < > 104* < > 86 132* 106* 102* CA -- < > 8.8 < > 8.6 < > 8.6 -- 8.5* 8.4* AST 399* -- 216* -- 80* -- -- -- -- -- ALT 433* -- 344* -- 184* -- -- -- -- -- AP 168* -- 235* -- 351* -- -- -- -- -- TBILI 1.5* -- 1.6* -- 1.7* -- -- -- -- -- TP 5.4* -- 4.8* -- 5.3* -- -- -- -- -- ALB 2.2* < > 1.7* | 1.7* < > 1.7* | 1.7* < > 1.8* -- 1.7* 1.8* < > = values in this interval not displayed. Lab Results Component Value Date MG 1.7 05/05/2014 Lab Results Component Value Date INRPT 1.61 05/05/2014 No results found for this basename: TROPONIN Imaging No new Cultures BLOOD CULTURE [facility] (no units) Date Value Range Status 04/26/2014 Final Value: Final Report:No Bacteria or Yeast isolated at 5 days. This is a corrected result. Previous result was No growth to date. on 04/28/2014t 0016 PST . CULT, URINE SCREEN (no units) Date Value Range Status 05/03/2014 Negative Negative Final CULTURE RESULT (no units) Date Value Range Status 03/24/2012 Final Value: C UrineSource: U Midstream FinalCULTURE RESULT:< 10,000 cfu/ml Insi gnificant growth Assessment and Plan: Mackenzie Hartley is a 58 y.o. 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 She is s/p ex lap, splenectomy, and packing with lap pads at OSH and from reopening of laparoto my, evacuation of 2-3 L of intraabdominal hematoma, closure of open abdomen. Procedures: 04/24/2014 1. Reopening of laparotomy 2. Evacuation of intraabdominal hematoma 3. Lysis of adhesions 4. Control of retroperitoneal hemorrhage 5. Closure of laparotomy 6. Skin VAC placement 7. Removal of foreign bodies from peritoneal cavity Pain management - adequate control with oxycodone, gabapentin, tylenol and lidoderm patches. - sedation: none - mental status: Awake and alert CV - VSS, stable tachycardia and tachypnea on 3LNC -Myocardial: continue metoprolol 37.5 mg BID. Hypercoagulable state/splenic artery thrombosis: on theraputic lovenox ( bridge to coumadin ), INR 1.6, continue for now, appreciate heme reccs Respiratory - On 3LNC - Aggressive IS/pulmonary hygiene Respiratory insufficiency: Combination of volume overload, pain medication, low respiratory reserve, improving with continued diuresis, scheduled daily diuresis from BID GI Dysphagia: speech following, still NPO, continued DHT,TF - Diet: NPO - MBS tomorrow - TF at goal - prophylaxis: famotidine BID Chron's disease - continue predisone 15 mg daily - on remicade at home (q6 weeks), consult GI for timing of restarting remicade - Stage I pressure wound: wolf for urinary incontience - UO good response to furosemide ID Leukocytosis: stable, afebrile, continue to monitor, last C. Diff negative with liquid stoo ls, continue to monitor, s/p splenectomy - related to steroids, sp splenectomy - Surgical Infection: No current evidence of infection Stage I pressure wound: wolf for urinary incontience Chem/Hem/Endo - Electrolytes: stable - HCT/HB stable - Glycemic control adequate Prophylaxis Activity: out of bed as able. PT/OT Thromboembolism PPY: on therapeutic Lovenox and started on warfarin 04/28 Head of bed: Elevated to 30 Ulcer Prevention: famotidine High risk, postoperative pneumonia: IS, ambulation Bowel: Scheduled and PRN bowel regimen Dispo: continue acute care. 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 It is accurate to the best of my knowledge, and is subject to modification based on clinical developments, new data, or final imaging results. Current Inpatient Medications Medication Dose Route Frequency acetaminophen (TYLENOL) tablet 650 mg 650 mg feeding tube Q6H albuterol 0.083% (PROVENTIL,VENTOLIN) 2.5 mg /3 mL (0.083 %) nebulizer solution 2.5 mg 2.5 mg inhalation Q4H PRN albuterol 0.083% (PROVENTIL,VENTOLIN) 2.5 mg /3 mL (0.083 %) nebulizer solution alteplase (CATHFLO ACTIVASE) injection 2 mg 2 mg Intracatheter PRN artificial tears (hypromellose) (NATURES TEARS) 0.4 % ophthalmic drops 1 drop 1 drop B oth Eyes PRN ascorbic acid liquid 500 mg 500 mg feeding tube BID bisacodyl (DULCOLAX) suppository 10 mg 10 mg rectal DAILY PRN enoxaparin (LOVENOX) injection 90 mg 1 mg/kg subcutaneous Q12H (Scheduled) famotidine (PEPCID) tablet 20 mg 20 mg feeding tube BID furosemide (LASIX) liquid 40 mg 40 mg feeding tube DAILY gabapentin (NEURONTIN) liquid 300 mg 300 mg feeding tube TID lidocaine (LIDODERM) 5 %(700 mg/patch) patch 1-2 patch 1-2 patch transdermal Q24H loperamide (IMODIUM A-D) 1 mg/7.5 mL liquid 2 mg 2 mg oral Q8H menthol-zinc oxide (CALAZIME) topical paste topical TID PRN metoprolol tartrate (LOPRESSOR) tablet 37.5 mg 37.5 mg feeding tube BID nystatin (MYCOSTATIN) powder topical BID oxycodone (immediate release) (ROXICODONE) tablet 2.5-10 mg 2.5-10 mg feeding tube Q4H PRN potassium chloride (KAOCHLOR) liquid 20 mEq 20 mEq feeding tube TID predniSONE (DELTASONE) tablet 15 mg 15 mg feeding tube DAILY probiotic kefir (RUFUS'S KEFIR) feeding tube TID senna (SENOKOT) liquid 8.8 mg 5 mL oral BID warfarin (COUMADIN) tablet 5 mg 5 mg feeding tube QPM zinc sulfate 44 mg/mL solution 110 mg 110 mg feeding tube DAILY Phil Ramirez MD - 05/04/2014 8:26 AM PSTI saw and evaluated the patient. I agree with the findings an d the plan of care as documented in the resident s note. PHIL VARMA MD [facility] [address] [place] [address] Rosa Sauer MD - 05/04/2014 8:26 AM PST Trauma / Surgical Critical Care Service - Progress Note Name: MACKENZIE HARTLEY Date: 05/04/2014 Time: 8:26 AM Author: ROSA REYNOSO MD HPI: 58 y.o. female admitted on 04/23/2014 10:39 AM with Crohn's, COPD, chronic pain, recur rent UTIs, and known splenic artery thrombosis s/p retroperitoneal hemorrhage on therapeutic heparin infusion. Surgical exploration at referring hospital. She was transferred to [facility] f or active hemorrhage and underwent IR embolization. [facility] 05/02 in respiratory distress. Hospital Day #11 ICU Day #4 (readmission) Procedures: 04/21/14: EGD with esophageal dilation 04/23/14: Reported Exlap, splenectomy, packing, vac dressing 04/23/14: Pelvic angiography with glue embolization, IR embolization of Left ileolumbar A 04/24/14: Exp lap: Removal of 3L intraabdominal clot, removal of packs, fascial closure, ski n vac placement 04/26/14: Left common femoral artery pseudoaneurysm - thrombin injection 24hr events: Yesterday evening became somnolent for about 4-5 minutes, improved without any intervention , serial neuro exams with improvement, last pain medication was 6 hours prior to event. Cont inued diuresis -2L/24hrs Vitals: 24 Hour Vital Min/Max: Systolic (24hrs), Av mmHg, Min:114 mmHg, Max:138 mmHgDiastolic (24hrs), Av mmHg, M in:59 mmHg, Max:85 mmHgPulse Av.8 Min: 93 Max: 129 Temp Av.1 C (98.8 F) Min: 36.7 C (98.1 F) Max: 37.7 C (99.9 F) Resp Av.6 Min: 19 Max: 28 SpO2 Av % Min: 94 % Max: 99 % Intake/Output Summary (Last 24 hours) at 05/04/14 0826 Last data filed at 05/04/14 0700 Gross per 24 hour Intake 1565 ml Output 4100 ml Net -2535 ml Physical exam: Last Vitals: BP 127/81 | Pulse 122 | Temp 36.7 C (98.1 F) | RR 19 | Ht 1.75 m (5' 8.9") | Wt 85.69 kg (188 lb 14.6 oz) | SpO2 96% | BMI 27.98 kg/(m^2)FIO2 (%): 40 fraction of O2 (05/02/14 0843) O2 Delivery Device: Nasal cannula (05/04/14 0400) General: awake, alert Neuro: CN II-XII grossly intact, 5/5 BUE strength, decreased effort LE but moving LE Lungs: CTAB CV: RRR Abdomen: soft, midline incision with diana in place : wolf in place Extremities: WWP, edema/anasarca Labs: Chemistries: Last 72 Hours (or 3 results): Recent Labs 05/02/14 2234 05/03/14 0359 05/04/14 0330 NA 140 140 140 K 3.5 3.5 3.7 CL 104 105 106 BICARB 31 27 28 BUN 34* 34* 36* CR 0.75 0.83 0.76 CA 8.2* 8.6 8.5* MG 2.0 2.0 1.7* PO4 2.8 2.7 2.8 CBC with diff last 72 hours (or 3 results) Recent Labs 05/02/14 0303 05/03/14 0359 05/04/14 0330 WBC 20.89* 22.17* 24.21* HB 9.2* 9.1* 9.3* HCT 29.7* 29.5* 30.1* PLT 154 203 251 Plan: Respiratory insufficiency: Combination of volume overload, pain medication, low respirator y reserve, improving with continued diuresis, scheduled daily diuresis from BID Leukocytosis: stable (slightly elevated), afebrile, continue to monitor, last C. Diff negat brady with liquid stools, continue to monitor, s/p splenectomy Hypercoagulable state/splenic artery thrombosis: on theraputic lovenox ( bridge to coumadin ), INR 1.5, continue for now, appreciate heme reccs HTN: on metop Afib: on amio at OSH, NSR while here Crohn's disease: on prednisone, on remicade at home (q6 weeks), consult GI for timing of re starting remicade Dysphagia: speech following, still NPO, continued DHT,TF Stage I pressure wound: wolf for urinary incontience F:TF A:tylenol, oxy, gabapentin S:none T:lovenox, coumadin H:>30 U:H2 G:none Lines:PICC, wolf Dispo:transfer to floor Discussed with Dr. Varma on SICU rounds. Rosa Reynoso, R2 SICU/Trauma Personal pager: [phone] Team pager: [phone] Angeles Acevedo MD - 05/04/2014 7:08 AM PST [facility] DEPARTMENT OF SURGERY EGS ICU Progress Note Division of Trauma and Critical Care ID: Mackenzie Hartley is a 58 year old female with COPD, Crohn's disease, chronic pain, and 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 while anticoagulated with warfarin transferre d to [facility] from [facility] for management of retroperitoneal bleed. She is s/p ex lap, splenectomy, and packing with lap pads at OSH and from reopening of laparotomy, evacua tion of 2-3 L of intraabdominal hematoma, closure of open abdomen SUBJECTIVE: Doing well, on 3 L nasal O2 Abd soft Tolerating tube feeds MEDICATIONS: Current facility-administered medications:acetaminophen (TYLENOL) tablet 650 mg, 650 mg, fe eding tube, Q6H, Gayatri Christensen PA-C, 650 mg at 05/04/14 0350 albuterol 0.083% (PROVENTIL,VENTOLIN) 2.5 mg /3 mL (0.083 %) nebulizer solution 2.5 mg, 2.5 mg, inhalation, Q4H PRN, Jf Wiseman MD, 5 mg at 05/02/14 0146 albuterol 0.083% (PROVENTIL,VENTOLIN) 2.5 mg /3 mL (0.083 %) nebulizer solution, , , , alteplase (CATHFLO ACTIVASE) injection 2 mg, 2 mg, Intracatheter, PRN, Barbara Hoang MD, 2 mg at 04/30/14 1147 artificial tears (hypromellose) (NATURES TEARS) 0.4 % ophthalmic drops 1 drop, 1 drop, Both Eyes, PRN, Willow L Colovos, ACNP ascorbic acid liquid 500 mg, 500 mg, feeding tube, BID, Jf Wiseman MD, 500 mg at 04/12 bisacodyl (DULCOLAX) suppository 10 mg, 10 mg, rectal, DAILY PRN, Marge Harris PA-C enoxaparin (LOVENOX) injection 90 mg, 1 mg/kg, subcutaneous, Q12H (Scheduled), Gayatri montemayor PA-C, 90 mg at 05/03/142204 famotidine (PEPCID) tablet 20 mg, 20 mg, feeding tube, BID, Jf Wiseman MD, 20 mg at 0 05/03/142154 furosemide (LASIX) liquid 40 mg, 40 mg, feeding tube, DAILY, Rosa Reynoso MD gabapentin (NEURONTIN) liquid 300 mg, 300 mg, feeding tube, TID, Gayatri Christensen PA-C, 3 00 mg at 05/03/142154 ipratropium-albuterol (DUO-NEB) nebulizer solution 3 mL, 3 mL, inhalation, Q4H, Jf baltazar MD, 3 mL at 05/04/14 0419 menthol-zinc oxide (CALAZIME) topical paste, , topical, TID PRN, Willow Jones Colalma, ACNP metoprolol tartrate (LOPRESSOR) tablet 37.5 mg, 37.5 mg, feeding tube, BID, Jf Wiseman MD, 37.5 mg at 05/03/142154 nystatin (MYCOSTATIN) powder, , topical, BID, Andrew Vincent MD oxycodone (immediate release) (ROXICODONE) tablet 2.5-10 mg, 2.5-10 mg, feeding tube, Q4H P RN, Gayatri Christensen PA-C, 2.5 mg at 05/04/14 0544 potassium chloride (KAOCHLOR) liquid 20 mEq, 20 mEq, feeding tube, TID, Gayatri Christensen PA-C, 20 mEq at 05/03/142154 predniSONE (DELTASONE) tablet 15 mg, 15 mg, feeding tube, DAILY, Jf Wiseman MD, 15 mg at 05/03/14 0832 probiotic kefir (RUFUS'S KEFIR), , feeding tube, TID, Marge Harris PA-C senna (SENOKOT) liquid 8.8 mg, 5 mL, oral, BID, Bartolo Thacker MD, 8.8 mg at 05/03/14 0904 warfarin (COUMADIN) tablet 5 mg, 5 mg, feeding tube, QPM, Jf Wiseman MD, 5 mg at 04/12 zinc sulfate 44 mg/mL solution 110 mg, 110 mg, feeding tube, DAILY, Jf Wiseman MD, 11 0 mg at 05/03/14 0832 OBJECTIVE: BP 117/65 | Pulse 127 | Temp 36.7 C (98.1 F) | RR 19 | Ht 1.75 m (5' 8.9") | Wt 85.69 k g (188 lb 14.6 oz) | SpO2 95% | BMI 27.98 kg/(m^2) PHYSICAL EXAM: Gen: extubated, following commands Lungs: unlabored breathing CV: regular, tachycardic to 110s-120s Abdomen: skin diana in place, abd is soft and nondistended Extremities:Warm and well perfused LABS: Lab Results Component Value Date WBC 24.21 05/04/2014 HB 9.3 05/04/2014 HCT 30.1 05/04/2014 PLT 251 05/04/2014 MCV 100.7 05/04/2014 RDW 72.9 05/04/2014 ASSESSMENT/PLAN: Mackenzie Hartley is a 58 year old female with COPD, Crohn's disease, chronic pain, and 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 She has required repeated transfers to ICU for respiratory status. She has been diuresed ap propriately while in the ICU and O2 needs have decreased significantly. Will transfer to [facility] or, but need to keep a close eye on pulm status and ambulation. Neuro: Minimize sedating medications. On oxycodone, dilaudid IV prn CV: HD stable Pulm: supp O2 to keep sats >90%. Needs frequent IS, pulm toilet GI: tube feeds at goal, tolerating well Renal: Reduce current dose of lasix to 40 mg daily from 40 mg BID for continued diuresis. Heme/ID: Hct stable -- 30 Endo: on home prednisone of 15 mg daily. Dispo: transfer to [facility] today Angeles Hannah MD General Surgery Resident, R3 Pager [phone] [facility] [place] [address] [address] [facility] [id number] Jf Jones MD - 05/03/2014 9:38 AM PST Trauma / Surgical Critical Care Service - Progress Note Name: MACKENZIE HARTLEY Date: 05/03/2014 Time: 9:38 AM Author: GAYATRI CHRISTENSEN PA-C HPI: 58 y.o. female admitted on 04/23/2014 10:39 AM with Crohn's, COPD, chronic pain, recurr ent UTIs, and known splenic artery thrombosis s/p retroperitoneal hemorrhage on therapeutic heparin infusion. Surgical exploration at referring hospital. She was transferred to [facility] fo r active hemorrhage and underwent IR embolization. [facility] was [facility] trans ferred [facility] 05/02 in respiratory distress. Hospital Day #8 ICU Day # 3 Readmission to ICU Lines: R PICC ([facility]) Abx: none Procedures: 04/21/14: EGD with esophageal dilation 04/23/14: Reported Exlap, splenectomy, packing, vac dressing 04/23/14: Pelvic angiography with glue embolization, IR embolization of Left ileolumbar A 04/24/14: Exp lap: Removal of 3L intraabdominal clot, removal of packs, fascial closure, ski n vac placement 04/26/14: Left common femoral artery pseudoaneurysm - thrombin injection 24hr events: Stable on simple NC but with any minimal activity desaturates briskly. Very weak. Hemodynamics stable, brisk response to diuresis. Current meds: I have independently reviewed current medication Tylenol PRN Diamox X1 Albuterol PRN cathflo PRN Vitamin C BID lovenox 90mg BID pepcid BID Lasix 40mg PFT BID Gabapentin 300mg TID duoneb Q4H Metop 37.5mg BID Oxycodone 2.5-10mg Q4H PRN Prednisone 15mg daily Kefir TID Senna BID Warfarin zinc Labs: EPIC Significant Results reviewed K 3.5 Mg 2.0 Phos 2.7 BUN/Cr 34/0.8 WBC 22 HCT 29 plts 203 INR 1.33 Imaging: I have reviewed applicable imaging. Vitals: BP 122/73 | Pulse 118 | Temp 37.1 C (98.8 F) | RR 29 | Ht 1.75 m (5' 8.9") | Wt 85.69 kg (188 lb 14.6 oz) | SpO2 94% | BMI 27.98 kg/(m^2) Intake/Output Summary (Last 24 hours) at 05/03/14 0938 Last data filed at 05/03/14 0800 Gross per 24 hour Intake 1490 ml Output 4395 ml Net -2905 ml Physical exam: Constitutional: alert, somewhat engaging. Very weak. HEENT grossly intact Neurologic: oriented X3, follows commands, moves all extremities. Participation limited by dyspnea and weakness. Cardiovascular: RRR Respiratory: diminished at bases but clear from anterior Gastrointestinal: soft, midline incision intact Genitourinary: wolf draining light yellow urine Musculoskeletal: warm, pitting anasarca, fragile skin Active issues/Plan: Hypoxic/hypercarbic respiratory insufficiency: improving with diuresis, very little respira tory reserve. Somnolence/encephalopthy: minimize opiates Leukocytotosis: stable, no signs of active infection. Cont off ABX. Splenic artery thrombosis/hypercoag state: driven from IBD, appreciate hem recs- they have signed off. - on Therapeutic lovenox bridge to warfarin. Pharm dosing, INR has finally bumped to 1.3. Acute on chronic pain: started scheduled gabapentin TID, scheduled tylenol, PRN low dose ox ycodone. 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 Goal negative 2L/day for next several days. Enteral lasix [place] eduled. Deconditioning: PT and OT consulted Stage I pressure wound on coccyx: stable, wolf given urinary incontinence Hypokalemia: scheduled replacement PFT, can likely reduce if/when lasix stopped CODE STATUS: DNR, intubation remains acceptable- discussed with /patient- they are u nsure if she would want reintubation- please address again if respiratory status declines. Resolved or chronic issues/Plan: Hemorrhagic shock: 04/22 s/p IR embolization of Left ileolumbar A. Hct stable. No indication for transfusion at this time Open abd: fascia closed, skin vac present Paroxsysmal Atrial fibrillation: recently on amiodarone at referring. In NSR in house Acute on chronic anemia: HCT stable no indication for transfusion at this time Hypoxic Respiratory Insufficiency: extubated 04/26 Coagulopathy: resolved, no active bleeding Stool incontinence: not a chronic issue, C diff negative. Continue to monitor Left common femoral pseudoaneurysm: s/p thrombin injection JULIANE: ATN from shock, resolving. Transaminates: Improving Hypernatremia: Resolved- stopped free water via DHT F:TF A:see above S:none T:lovenox bridge H:HOB elevated U:H2 jarrod G:no insulin needs B:regimen available I:PICC for labs, wolf for wound care D:No ABX Spines:NA Dispo:Cont ICU for nursing needs Discussed with Dr. Wiseman on TSICU rounds. I spent 32 minutes exclusive of time spent with attendings. Erin Christensen PA-C Dept of Surgery SICU/TICU Contact First Call team 01/11 for questions: Team Pager [phone] ATTENDING ADDENDUM: I saw and examined Mackenzie Hartley with DARLING Christensen on 05/03 and agree with the assessment and plan as outlined in this note and participated in the planning of care. Ms. Maulik valenciaai ns critically ill in the ICU. She has had a good response to diuresis. We will work further on mobility and respiratory therapy. She has had some desaturations and we will keep her in the ICU for close monitoring. I spent 20 minutes providing critical care exclusive of procedures and exclusive of time sp ent by Erin Christensen PA-C. 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 She is s/p ex lap, splenectomy, and packing with lap pads at OSH and from reopening of laparotomy, evacuation of 2-3 L of intraabdominal hematoma, closure of open abdomen. Transferred to ICU for respira tory distress PROCEDURES: 04/21/14: EGD with esophageal dilation 04/23/14: Reported Exlap, splenectomy, packing, vac dressing 04/23/14: Pelvic angiography with glue embolization, IR embolization of Left ileolumbar A 04/24/14: Exp lap: Removal of 3L intraabdominal clot, removal of packs, fascial closure, ski n vac placement 04/26/14: Left common femoral artery pseudoaneurysm - thrombin injection 24 HR EVENTS: - Off bipap since yesterday AM - She and her report that she had a good day yesterday - net negative 2.67 L MEDICATIONS: Current facility-administered medications:acetaminophen (TYLENOL) oral suspension 650 mg, 6 50 mg, feeding tube, Q6H, Jf Wiseman MD, 650 mg at 05/03/14 0347 albuterol 0.083% (PROVENTIL,VENTOLIN) 2.5 mg /3 mL (0.083 %) nebulizer solution 2.5 mg, 2.5 mg, inhalation, Q4H PRN, Jf Wiseman MD, 5 mg at 05/02/14 0146 albuterol 0.083% (PROVENTIL,VENTOLIN) 2.5 mg /3 mL (0.083 %) nebulizer solution, , , , alteplase (CATHFLO ACTIVASE) injection 2 mg, 2 mg, Intracatheter, PRN, Barbara Hoang MD, 2 mg at 04/30/14 1147 artificial tears (hypromellose) (NATURES TEARS) 0.4 % ophthalmic drops 1 drop, 1 drop, Both Eyes, PRN, Willow L Colovos, ACNP ascorbic acid liquid 500 mg, 500 mg, feeding tube, BID, Jf Wiseman MD, 500 mg at 04/12 bisacodyl (DULCOLAX) suppository 10 mg, 10 mg, rectal, DAILY PRN, Marge Harris PA-C enoxaparin (LOVENOX) injection 90 mg, 1 mg/kg, subcutaneous, Q12H (Scheduled), Gayatri montemayor PA-C, 90 mg at 05/02/142001 famotidine (PEPCID) tablet 20 mg, 20 mg, feeding tube, BID, Jf Wiseman MD, 20 mg at 0 05/02/142000 furosemide (LASIX) liquid 40 mg, 40 mg, feeding tube, BID ( and ), Sunshine Jennings, 40 mg at 05/02/14 170 HYDROmorphone (DILAUDID) injection 0.2-1 mg, 0.2-1 mg, intravenous, Q2H PRN, Gayatri monzon PA-C, 0.3 mg at 05/02/142201 ipratropium-albuterol (DUO-NEB) nebulizer solution 3 mL, 3 mL, inhalation, Q4H, Jf baltazar MD, 3 mL at 05/03/14 0008 menthol-zinc oxide (CALAZIME) topical paste, , topical, TID PRN, Willow Raygoza, ACNP metoprolol tartrate (LOPRESSOR) tablet 37.5 mg, 37.5 mg, feeding tube, BID, Jf Wiseman MD, 37.5 mg at 05/02/142000 nystatin (MYCOSTATIN) powder, , topical, BID, Andrew Vincent MD oxyCODONE (immediate release) (ROXICODONE) tablet 5-15 mg, 5-15 mg, feeding tube, Q4H PRN, Barbara Hoang MD, 5 mg at 05/03/14 034 predniSONE (DELTASONE) tablet 15 mg, 15 mg, feeding tube, DAILY, Jf Wiseman MD probiotic kefir (RUFUS'S KEFIR), , feeding tube, TID, Marge Harris PA-C senna (SENOKOT) liquid 8.8 mg, 5 mL, oral, BID, Bartolo Thacker MD, 8.8 mg at 04/29/142043 warfarin (COUMADIN) tablet 5 mg, 5 mg, feeding tube, QPM, Jf Wiseman MD, 5 mg at 04/12 zinc sulfate 44 mg/mL solution 110 mg, 110 mg, feeding tube, DAILY, Jf Wiseman MD VITAL SIGNS: Temp Av.9 C (98.5 F) Min: 36.7 C (98.1 F) Max: 37.2 C (98.9 F) Pulse Av Min: 94 Max: 117 Systolic (24hrs), Av mmHg, Min:117 mmHg, Max:139 mmHg Diastolic (24hrs), Av mmHg, Min:70 mmHg, Max:108 mmHg Resp Av.4 Min: 19 Max: 33 SpO2 Av.5 % Min: 90 % Max: 99 % Intake/Output Summary (Last 24 hours) at 05/03/14 0349 Last data filed at 05/02/14 2300 Gross per 24 hour Intake 1710 ml Output 4125 ml Net -2415 ml DRIPS: Heparin PHYSICAL EXAM: General: Awake, answering questions more persistently. Respiratory: Unlabored on 2 L NC. Left lung alberto with crackles CV: tachycardic in 110s Abdomen: soft, nontender, nondistended. Midline incision with diana, clean/dry/intact : wolf catheter in place, urine clear yellow Extremities: Warm and well perfused, pitting edema Lines: Port, Power PICC, Wolf, DHT LABS: Chemistries Recent Labs 05/01/14 0245 05/02/14 0303 05/02/14 1500 05/02/14 2234 NA 141 140 140 140 K 3.1* 3.3* 4.0 3.5 CL 105 103 103 104 BICARB 29 31 30 31 BUN 34* 33* 35* 34* CR 0.80 0.74 0.78 0.75 CA 8.9 8.2* 8.8 8.2* MG 1.9 1.5* -- 2.0 PO4 2.7 3.5 2.9 2.8 ALB 1.7* 1.8* 1.8* 1.8* Lab Results Component Value Date PH 7.52* 05/02/2014 PCO2 40 05/02/2014 PO2 63* 05/02/2014 HCO3 32.2* 05/02/2014 FIO2 0.45 05/02/2014 Lab Results Component Value Date URINECOLOR Yellow 04/23/2014 URAPPEARANCE Mod. Cloudy 04/23/2014 URINELE Negative 04/23/2014 URINENITRITE Negative 04/23/2014 URINEUROBILI <2.0 04/23/2014 URINEPROTEIN Negative 04/23/2014 URINEPH 5.0 04/23/2014 URINEBLOOD Moderate 04/23/2014 URINEKETONES Negative 04/23/2014 URINEBILI Negative 04/23/2014 URINEGLUCOSE Negative 04/23/2014 Lab Results Component Value Date URINEAMPPHOS None 04/23/2014 URINEBACTERI None 04/23/2014 URINECAOX None 04/23/2014 URINECAST 0 04/23/2014 URINEGRANCAS 0 04/23/2014 URINEHYALINE 0 04/23/2014 URINEMUCOUS None 04/23/2014 URINEEPITH None 04/23/2014 URINEREDCELL 1 04/23/2014 URINESQEPI None 04/23/2014 URINEPO4 None 04/23/2014 URINEWBC <1 04/23/2014 URINEYEAST None 04/23/2014 CBC with diff Recent Labs 04/30/14 0444 05/01/14 0245 05/02/14 0303 WBC 26.14* 21.21* 20.89* HB 9.3* 9.4* 9.2* HCT 29.1* 29.6* 29.7* PLT 101* 131* 154 INR 1.08 CBG's Recent Labs 04/30/14 0444 05/01/14 0022 05/01/14 0245 05/01/14 1819 05/01/14 2346 05/02/14 0303 05/02/14 1500 05/02/14 2234 GLU 80 120* 106* 144* 136* 121* 139* 117* Cultures N/A ACTIVE PROBLEMS AND PLAN: Mackenzie Hartley is a 58 year old female with COPD, Crohn's disease, chronic pain, and 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 1. Neuro: oxycodone, PRN dilaudid for pain control. Minimize centrally acting meds. Mental status seems improved 2. CV: HD stable, ongoing diuresis 3. Resp: remains tachypneic but oxygenating well. Anticipate continued improvement with diu resis 4. GI: having BMs, tolerating TFs. Continue prednisone 15 mg daily for Crohns 5. /Renal: good renal function 6. FEN: replace electrolytes PRN. Continue TFs via DHT due to dysphagia. Periodic speech ev als 7. Heme/ID: hx/o pro-coagulative disorder. Heparin gtt transitioning to wafarin. INR still subtherapeutic 8. Endo: Glycemic control. CBG's are well controlled. 9. MSK: PT/OT. F: TFs A: oxy, HM PRN S: none T: SCD's, therapeutic heparin.. H: HOB > 30 U: famotidine G: none Lines: PICC, Port, Wolf, DHT Dispo: possible transfer to [facility] later today Dr. Massey is the attending of record for this patient encounter. 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 female admitted on 04/23/2014 10:39 AM with Crohn's, COPD, chronic pain, recurr ent UTIs, and known splenic artery thrombosis s/p retroperitoneal hemorrhage on therapeutic heparin infusion. Surgical exploration at referring hospital. She was transferred to [facility] fo r active hemorrhage and underwent IR embolization. She was transferred to the [facility] and tra nsferred back 05/02 in respiratory distress Hospital Day #7 ICU Day # 7 Lines: R PICC ([facility]) Abx: none Procedures: 04/21/14: EGD with esophageal dilation 04/23/14: Reported Exlap, splenectomy, packing, vac dressing 04/23/14: Pelvic angiography with glue embolization, IR embolization of Left ileolumbar A 04/24/14: Exp lap: Removal of 3L intraabdominal clot, removal of packs, fascial closure, ski n vac placement 04/26/14: Left common femoral artery pseudoaneurysm - thrombin injection 24hr events: Acute hypoxia on the [facility] from 4L o2 to 10L oxymask Ph- 7.34/59/57, tx to ICU on Bipap Current meds: I have independently reviewed current medication Tylenol QID albuterol Vitamin C Dulcolax PRN lovenox 90mg BID pepcid BID Dilaudid PRN duoneb Metop 37.5 mg BID Oxycodone PRN Prednisone 15mg daily Senna Warfarin zinc Labs: EPIC Significant Results reviewed Imaging: I have reviewed applicable imaging. Vitals: BP 134/106 | Pulse 115 | Temp 36.8 C (98.3 F) | RR 29 | Ht 1.75 m (5' 8.9") | W t 85.69 kg (188 lb 14.6 oz) | SpO2 96% | BMI 27.98 kg/(m^2) Intake/Output Summary (Last 24 hours) at 04/29/14 1143 Last data filed at 04/29/14 1100 Gross per 24 hour Intake 2035 ml Output 2580 ml Net -545 ml Physical exam: Constitutional: laying in bed, somnolent, Bipap in place HEENT Pupils 4 mm; slowly reactive Neurologic:somnolent, slowly nods appropriately to commands, non verbal, 3/5 UE strength bi laterally, weak wiggle of toes bilaterally Cardiovascular: tachycardia, regular rhythm Respiratory: CTA, no expiratory wheeze Gastrointestinal: soft, flat, midline intact, dry, no grimace to palpation Genitourinary: wolf draining yellow urine Musculoskeletal: WWP, laxmi hose in place, 2+ edema proximal to laxmi hose Active issues/Plan: Hypoxic/hypercarbic respiratory insufficiency: cofactorial- d/t fluid shifts- chest x-ray with increased pulm edema and pleural effusions as well as opiod accumulation decreasing res piratory drive -bipap prn -lasix BID- goal negative 1-2L; diamox prn d/t contractual alkalosis Somnolence/encephalopthy- hypercarbic- may require intermittent bipap, minimize centrally a cting medication Leukocytotosis: persists but trending downward. Afebrile, hemodynamically stable. Partiall y splenectomy induced. CT scan- + fluid- no obvious source of infection. -following, no indication for abx at this time Splenic artery thrombosis/hypercoag state: driven from IBD, appreciate hem recs- they have signed off. 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 Goal negative 1-2 L- scheduled diuretics Deconditioning: PT and OT consulted CODE STATUS: DNR, intubation remains acceptable- discussed with /patient- they are u nsure if she would want reintubation- please address again if respiratory status declines. Resolved or chronic issues/Plan: Hemorrhagic shock: 04/22 s/p IR embolization of Left ileolumbar A. Hct stable. No indication for transfusion at this time Open abd: fascia closed, skin vac present Paroxsysmal Atrial fibrillation: recently on amiodarone at referring. In NSR in house Acute on chronic anemia: HCT stable no indication for transfusion at this time Hypoxic Respiratory Insufficiency: extubated 04/26 Coagulopathy: resolved, no active bleeding Stool incontinence: not a chronic issue, C diff negative. Continue to monitor Left common femoral pseudoaneurysm: s/p thrombin injection JULIANE: ATN from shock, resolving. Transaminates: Improving Hypernatremia: Resolved- stopped free water via DHT F: NPO A:tylenol, oxy, dilaudid S:none T:lovenox; warfarin bridge H:HOB elevated U:H2 jarrod G:SSI- no insulin needs B:held for liquid stool I:PICC for labs and meds. Wolf for wound management D:no ABX Spines:NA Goals of care: Intubate if needed. DNR. Dispo:remain in ICU, expect [facility] tx in next [address] Wiseman on TSICU rounds. Marge harris PA-C Dept of Surgery SICU/TICU Contact First Call team 01/11 for questions: Team Pager [phone] ATTENDING ADDENDUM: I saw and examined Mackenzie Hartley with DARLING Harris on 05/02 and agree with the assessment and plan as outlined in this note and participated in the planning of care. Ms. Hartley was t ransferred to the ICU for respiratory distress/decreased mental status. She was placed on BI PAP with improved oxygen saturations. We will also initiate more aggressive diuresis. With t hese two actions, her oxygen saturations and mental status improved. We will decrease her av ailable dose of narcotics to improve her mental status. She is at risk of respiratory failur e and continue close support in the ICU. I spent 33 minutes providing critical care exclusive of procedures and exclusive of time sp ent by Marge Harris PA-C. Jf Wiseman MD FACS collar turner operator Division of Trauma, Critical Care, and Acute Care Surgery [phone] GIAHarAngeles oglesby MD - 05/02/2014 6:55 AM PST [facility] DEPARTMENT OF SURGERY EGS ICU Progress Note Division of Trauma and Critical Care ID: Mackenzie Hartley is a 58 year old female with COPD, Crohn's disease, chronic pain, and 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 while anticoagulated with warfarin transferre d to [facility] from [facility] for management of retroperitoneal bleed. She is s/p ex lap, splenectomy, and packing with lap pads at OSH and from reopening of laparotomy, evacua tion of 2-3 L of intraabdominal hematoma, closure of open abdomen SUBJECTIVE: Transferred to ICU last night for respiratory distress MEDICATIONS: Current facility-administered medications:acetaminophen (TYLENOL) tablet 650 mg, 650 mg, or al, Q6H, Bartolo Thacker MD, 650 mg at 05/02/14 0430 albuterol 0.083% (PROVENTIL,VENTOLIN) 2.5 mg /3 mL (0.083 %) nebulizer solution 2.5 mg, 2.5 mg, inhalation, Q4H PRN, Jf Wiseman MD, 5 mg at 05/02/14 0146 albuterol 0.083% (PROVENTIL,VENTOLIN) 2.5 mg /3 mL (0.083 %) nebulizer solution, , , , alteplase (CATHFLO ACTIVASE) injection 2 mg, 2 mg, Intracatheter, PRN, Barbara Hoang MD, 2 mg at 04/30/14 1147 artificial tears (hypromellose) (NATURES TEARS) 0.4 % ophthalmic drops 1 drop, 1 drop, Both Eyes, PRN, Willow Jones Colovos, ACNP ascorbic acid liquid 500 mg, 500 mg, oral, BID, Bartolo Thacker MD, 500 mg at 05/01/14 215 bisacodyl (DULCOLAX) suppository 10 mg, 10 mg, rectal, DAILY PRN, Marge Harris PA-C enoxaparin (LOVENOX) injection 90 mg, 1 mg/kg, subcutaneous, Q12H (Scheduled), Gayatri montemayor PA-C, 90 mg at 05/01/142207 famotidine (PEPCID) tablet 20 mg, 20 mg, oral, BID, Bartolo Thacker MD, 20 mg at 05/01 HYDROmorphone (DILAUDID) injection 0.2-1 mg, 0.2-1 mg, intravenous, Q2H PRN, Gayatri monzon PA-C, 0.2 mg at 05/01/14 182 ipratropium-albuterol (DUO-NEB) nebulizer solution 3 mL, 3 mL, inhalation, Q4H, Jf baltazar MD, 3 mL at 05/02/14 0501 menthol-zinc oxide (CALAZIME) topical paste, , topical, TID PRN, Willow BravoovYOMAIRA holmP metoprolol tartrate (LOPRESSOR) tablet 37.5 mg, 37.5 mg, oral, BID, Marge Harris PA-C, 37.5 mg at 05/01/14 215 nystatin (MYCOSTATIN) cream, , topical, QID PRN, Gayatri Christensen PA-C nystatin (MYCOSTATIN) powder, , topical, BID, Andrew Vincent MD oxyCODONE (immediate release) (ROXICODONE) tablet 5-10 mg, 5-10 mg, oral, Q4H PRN, Marge Harris PA-C, 10 mg at 05/01/142151 predniSONE (DELTASONE) tablet 15 mg, 15 mg, oral, DAILY, Bartolo Thacker MD, 15 mg at 05/01/14942 senna (SENOKOT) liquid 8.8 mg, 5 mL, oral, BID, Bartolo Thacker MD, 8.8 mg at 04/29/142043 warfarin (COUMADIN) tablet 3 mg, 3 mg, feeding tube, QPM, Marge Harris PA-C, 3 mg at 0 05/01/142151 zinc sulfate (ORAZINC) tablet 25 mg elemental, 110 mg total salt, oral, DAILY, Bartolo Thacker MD, 25 mg elemental at 05/01/1443 OBJECTIVE: BP 129/92 | Pulse 103 | Temp 37 C (98.6 F) | RR 22 | Ht 1.75 m (5' 8.9") | Wt 85.69 kg (188 lb 14.6 oz) | SpO2 99% | BMI 27.98 kg/(m^2) PHYSICAL EXAM: Gen: extubated, following commands Lungs: unlabored breathing CV: regular, tachycardic to 110s Abdomen: abthera in place. Extremities:Warm and well perfused. 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 Neuro: Minimize sedating medications. On oxycodone, dilaudid IV prn CV: HD stable Pulm: NIPPV, may help with pulm edema and low lung volumes. Pulmonary toilet, IS. GI: tube feeds Renal: Likely needs diuresis. Defer to SICU, but would recommend to aim -1 L per day Heme/ID: Hct stable Endo: on home prednisone of 15 mg daily. Wound: skin vac changed by EGS Dispo: continue critical care Angeles Hannah MD General Surgery Resident, R3 Pager [phone] [place] [address] arris, Angeles Hanna MD - 05/02/2014 2:14 AM PSTSignificant event Called to bedside due to patient in respiratory distress. Pt requiring oxymask at 15 L to m kait sats at 94%, tachypneic to 30s, appears labored. VBG O2 57. CXR shows low lung volum es, pulm edema. Transferring to unit for resp distress. Will initiate NIPPV. Angeles Hannah MD General Surgery Resident, R3 Pager [phone] ean-Claude Albrecht DMD, MD - 05/01/2014 10:36 AM PST [facility] DEPARTMENT OF SURGERY EGS Progress Note ID: Mackenzie Hartley is a 58 year old female with COPD, Crohn's disease, chronic pain, and 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 while anticoagulated with warfarin transferre d to [facility] from [facility] for management of retroperitoneal bleed. She is s/p ex lap, splenectomy, and packing with lap pads at OSH and from reopening of laparotomy, evacua tion of 2-3 L of intraabdominal hematoma, closure of open abdomen SUBJECTIVE: DHT replaced Transferred from ICU to [facility] On [facility] with 4L o2 requirement Good response to diureses MEDICATIONS: Current facility-administered medications:acetaminophen (TYLENOL) tablet 650 mg, 650 mg, or al, Q6H, Bartolo Thacker MD, 650 mg at 05/01/14 0943 albuterol 0.083% (PROVENTIL,VENTOLIN) 2.5 mg /3 mL (0.083 %) nebulizer solution 2.5 mg, 2.5 mg, inhalation, Q4H PRN, Jf Wiseman MD, 2.5 mg at 05/01/14 0903 albuterol 0.083% (PROVENTIL,VENTOLIN) 2.5 mg /3 mL (0.083 %) nebulizer solution, , , , alteplase (CATHFLO ACTIVASE) injection 2 mg, 2 mg, Intracatheter, PRN, Barbara Hoang MD, 2 mg at 04/30/14 1147 artificial tears (hypromellose) (NATURES TEARS) 0.4 % ophthalmic drops 1 drop, 1 drop, Both Eyes, PRN, Willow Karen Colovos, ACNP ascorbic acid liquid 500 mg, 500 mg, oral, BID, Bartolo Thacker MD, 500 mg at 05/01/14 0943 bisacodyl (DULCOLAX) suppository 10 mg, 10 mg, rectal, DAILY PRN, Marge Harris PA-C enoxaparin (LOVENOX) injection 90 mg, 1 mg/kg, subcutaneous, Q12H (Scheduled), Gayatri montemayor PA-C, 90 mg at 05/01/14 0943 famotidine (PEPCID) tablet 20 mg, 20 mg, oral, BID, Bartolo Thacker MD, 20 mg at 05/01 0943 HYDROmorphone (DILAUDID) injection 0.2-1 mg, 0.2-1 mg, intravenous, Q2H PRN, Gayatri monzon PA-C, 0.2 mg at 05/01/14 0037 menthol-zinc oxide (CALAZIME) topical paste, , topical, TID PRN, Willow L Colovos, ACNP metoprolol tartrate (LOPRESSOR) tablet 37.5 mg, 37.5 mg, oral, BID, Marge Harris PA-C, 37.5 mg at 05/01/14 0943 nystatin (MYCOSTATIN) cream, , topical, QID PRN, Gayatri Christensen PA-C nystatin (MYCOSTATIN) powder, , topical, BID, Andrew Vincent MD oxyCODONE (immediate release) (ROXICODONE) tablet 5-10 mg, 5-10 mg, oral, Q4H PRN, Marge Harris PA-C, 10 mg at 05/01/14 0622 predniSONE (DELTASONE) tablet 15 mg, 15 mg, oral, DAILY, Bartolo Thacker MD, 15 mg at 05/01/14 0943 senna (SENOKOT) liquid 8.8 mg, 5 mL, oral, BID, Bartolo Thacker MD, 8.8 mg at 04/29/142043 warfarin (COUMADIN) tablet 3 mg, 3 mg, feeding tube, QPM, Marge Harris PA-C, 3 mg at 0 04/30/142208 zinc sulfate (ORAZINC) tablet 25 mg elemental, 110 mg total salt, oral, DAILY, Bartolo Thacker MD, 25 mg elemental at 05/01/14 0943 OBJECTIVE: BP 144/88 | Pulse 118 | Temp 36.3 C (97.3 F) | RR 26 | Ht 1.75 m (5' 8.9") | Wt 88 kg ( 194 lb 0.1 oz) | SpO2 92% | BMI 28.73 kg/(m^2) PHYSICAL EXAM: Gen: following commands Lungs: tachypneic CV: regular, tachycardic to 110s Abdomen: abthera in place. Extremities:Warm and well perfused. LABS: Lab Results Component Value Date WBC 21.21 05/01/2014 HB 9.4 05/01/2014 HCT 29.6 05/01/2014 PLT 131 05/01/2014 MCV 97.0 05/01/2014 RDW 56.4 05/01/2014 Intake/Output Summary (Last 24 hours) at 05/01/14 1040 Last data filed at 05/01/14 0900 Gross per 24 hour Intake 3095 ml Output 2300 ml Net [address] ABDOMEN & PELVIS W CONTRAST EXAM: CT of the abdomen and pelvis with contrast HISTORY: History of a spontaneous large retroperitoneal/pelvic hematoma following coagulation, status post left iliolumbar arterial embolization. Evaluate for source of infection. COMPARISON: CTA 04/23/14 TECHNIQUE: CT of the abdomen and pelvis with contrast. 150 mL of Omnipaque 300 iodinated intravenous contrast was given. Coronal and sagittal reformats were reviewed. FINDINGS: LOWER THORAX: Moderate bilateral pleural effusions with adjacent dependent atelectasis are redemonstrated, without significant change in the degree of passive atelectasis compared 04/23/14. Bibasilar ground glass opacities have developed in the middle lobe and lingular segments. A small hiatal hernia persists. LIVER: Unremarkable. BILIARY: Postsurgical changes of cholecystectomy are redemonstrated. No intrahepatic biliary dilatation. Prominent common bile duct is likely postsurgical. SPLEEN: Surgically absent with interval evacuation of the previously noted packing material. PANCREAS: Unremarkable. ADRENALS: Unremarkable. KIDNEYS/URETERS: Bilateral subcentimeter cystic lesions are redemonstrated too small to characterize. No hydronephrosis or perinephric fluid collection. PELVIC ORGANS/BLADDER: Unremarkable catheterized decompressed urinary bladder with locules of air anteriorly, likely iatrogenic. GI TRACT: Post surgical changes within the proximal large bowel are redemonstrated. PERITONEUM: Moderate amount of free fluid is present in the perihepatic space extending along the right paracolic gutter into the pelvis. Free fluid is present in the midabdomen. Multiloculated left retroperitoneal fluid collections persist overlying the area of the previous hematoma without contained collection. The hematoma posterior to the left iliacus muscle has decreased in size and density, measuring 7.5 x 3.9 x 10.6 cm, axial image 143 and coronal image 87, previously 8.9 x 4.6 cm. Asymmetric low-density superficial soft tissue edema is present in the right greater than left flank, without peripheral enhancement to suggest underlying infection. LYMPH NODES: No lymphadenopathy. VESSELS: Postprocedural changes of left iliolumbar embolization are noted. BONES: No suspicious bony lesions. SOFT TISSUE: Extensive and diffuse soft tissue edema is consistent with anasarca. Midline ventral abdominal incision is present. IMPRESSION: 1. No definitive infectious source identified. Findings consistent with anasarca include interval appearance of moderate ascites throughout the abdomen and pelvis, pulmonary edema with bilateral pleural effusions, and diffuse soft tissue edema. New patchy groundglass opacities in the middle lobe and lingula segment with persistent passive atelectasis in the lower lobes likely from adjacent pleural effusions. Suggest correlation. 2. Decreased size and density of the left iliacus muscle hematoma with new post-procedural changes of an embolized left iliolumbar artery abutting the hematoma. 3. In the area of the evacuated retroperitoneal hematoma loculated heterogeneous fluid (likely resolving hematoma) persists superimposed on low-density free fluid along the left abdominal and pelvic sidewall. 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 Overall, she is improving. However, remains tachycardic with leukocytosis - WBC [address] 05/01 showed - moderate ascites and pleural effusions and hematoma. Neuro: dilaudid IV PRN Speech: following continue daily to eval swallow CV: HD stable L VEGETABLE CANNER PSA resolved Continue IV lasix today 20 unite Pulm: titrate to O2 >92% GI: famotidine for stress ulcer ppx Renal: Creatinine improving. Heme/ID: Hct stable, . Heme consulted: Dr. Navarro states her IBD is causing her thrombosis. Suggests holding anticoagulation for now. Endo: home dose of 15 mg prednisone daily has been resumed. Wound: skin vac changed by EGS 04/30 PT. OT and RT ordered. Nutrition: start to cycle TF tonight Dispo: continue acute care hospitalization Jean-Claude Albrecht D.M.D., M.D. [facility] [place] [facility] [place] [id number] Jf Jones MD - 04/30/2014 11:08 AM PST Trauma / Surgical Critical Care Service - Progress Note Name: MACKENZIE HARTLEY Date: 04/30/2014 Time: 9:27 AM Author: Marge Harris PA-C HPI: 58 y.o. female admitted on 04/23/2014 10:39 AM with Crohn's, COPD, chronic pain, recurr ent UTIs, and known splenic artery thrombosis s/p retroperitoneal hemorrhage on therapeutic heparin infusion. Surgical exploration at referring hospital. She was transferred to [facility] fo r active hemorrhage and underwent IR embolization. Hospital Day #7 ICU Day # 7 Lines: R PICC (OSH) Abx: none Procedures: 04/21/14: EGD with esophageal dilation 04/23/14: Reported Exlap, splenectomy, packing, vac dressing 04/23/14: Pelvic angiography with glue embolization, IR embolization of Left ileolumbar A 04/24/14: Exp lap: Removal of 3L intraabdominal clot, removal of packs, fascial closure, ski n vac placement 04/26/14: Left common femoral artery pseudoaneurysm - thrombin injection 24hr events: Pulled DHT overnight- refusing to have replaced. WBC remains 26, remains afebrile, BP stab le, mildly more tachycardic and delirious Current meds: I have independently reviewed current medication Tylenol QID cathflo PRN Vitamin C Dulcolax PRN lovenox 90mg BID pepcid BID Dilaudid PRN Metop 37.5 mg BID Oxycodone PRN Prednisone 15mg daily Senna Warfarin zinc Labs: EPIC Significant Results reviewed Imaging: I have reviewed applicable imaging. Vitals: BP 145/98 | Pulse 113 | Temp 36.3 C (97.3 F) | RR 29 | Ht 1.75 m (5' 8.9") | Wt 88 kg (194 lb 0.1 oz) | SpO2 95% | BMI 28.73 kg/(m^2) Intake/Output Summary (Last 24 hours) at 04/29/14 1143 Last data filed at 04/29/14 1100 Gross per 24 hour Intake 2035 ml Output 2580 ml Net -545 ml Physical exam: Constitutional: sitting up in bed, NAD HEENT EOMI intact Neurologic: oriented to self, place- delayed response, weak but moves all extremities to co mmand Cardiovascular: tachycardia, regular rhythm Respiratory: clear but diminished at bases Gastrointestinal: soft, flat, midline intact with mild inferior drainage, no erythema Genitourinary: wolf draining yellow urine Musculoskeletal: warm and well perfused with pitting 3+ anasarca in all extremities, RLE- w rapped. Very thin skin. Active issues/Plan: Leukocytotosis: afebrile with no clear source of infection. Partially splenectomy induced. - Ct abd/pelvis to eval for possible intraabdominal sepsis - If decompensates or febrile then panculture and ABX. Encephalopathy, metabolic: may be r/t underlying sepsis- CT pending- minimize centrally act ing medications Splenic artery thrombosis/hypercoag state: driven from IBD, appreciate hem recs- they have signed off. - on Therapeutic lovenox, started warfarin bridge Tuesday. INR 0.9 HTN home dose of metoprolol started, increased dose today in light of HTN and tachycardia Crohn's disease: prednisone, holding Q6W Remicade Severe malnutrition: - pulled DHT- refusing replacement. Await BIAS CUTTING MACHINE OPERATOR VERTICAL eval if passes swallow will give chance to prove adequate po intake. Expect will require TFs again Dysphagia: await BIAS CUTTING MACHINE OPERATOR VERTICAL eval today. Cont meds and feed via DHT Hyernatremia: resolved with cont H2O via DHT- monitor trend after DHT being pulled Anasarca: compression socks, negative 2.5 yesterday. Goal net even today d/t receiving con trast this morning. Deconditioning: PT and OT consulted Stool incontinence: not a chronic issue, C diff negative. Continue to monitor CODE STATUS: Intubate if needed, DNR. Resolved or chronic issues/Plan: Hemorrhagic shock: 04/22 s/p IR embolization of Left ileolumbar A. Hct stable. No indication for transfusion at this time Open abd: fascia closed, skin vac present Paroxsysmal Atrial fibrillation: recently on amiodarone at referring. In NSR in house Acute on chronic anemia: HCT stable no indication for transfusion at this time Hypoxic Respiratory Insufficiency: extubated 04/26 Coagulopathy: resolved, no active bleeding Left common femoral pseudoaneurysm: s/p thrombin injection JULIANE: ATN from shock, resolving. Transaminates: improving F: NPO A:tylenol, oxy, dilaudid S:none T:lovenox warfarin H:HOB elevated U:H2 jarrod G:SSI- no insulin needs B:held for liquid stool I:PICC for labs and meds. Wolf for wound management D:no ABX Spines:NA Goals of care: Intubate if needed. DNR. Dispo:Making progress. CT scan ordered. Expect can tx to moore this afternoon Discussed with Dr. Wiseman on TSICU rounds. Marge harris PA-C Dept of Surgery SICU/TICU Contact First Call team 01/11 for questions: Team Pager [phone] ATTENDING ADDENDUM: I saw and examined Mackenzie Hartley with DARLING Harris on 04/30 and agree with the assessment and plan as outlined in this note and participated in the planning of care. Ms. Hartley yesy nues to recover in the ICU with evidence of elevated wbc, tachycardia, and delirium. We orde red a CT to rule out abscess given her multiple recent abdominal operations. This did not de monstrate abscess. We will titrate her beta jarrod up and continue gentle diuresis. We will talk to her and of the importance of nutrition and will hopefully replace her nasoe nteric feeding tube. She has been hemodynamically stable and we will monitor her anemia. She has required ICU care for hemorrhagic shock, respiratory compromise, and renal failure. If she continue to be stable, she could transfer out of the ICU soon. I updated her with the pl an of care. I spent 33 minutes providing critical care exclusive of procedures and exclusive of time sp ent by Marge Harris PA-C. Jf Wiseman MD FACS collar turner operator Division of Trauma, Critical Care, and Acute Care Surgery [phone] Angeles Acevedo MD - 04/30/2014 1:18 AM PST [facility] DEPARTMENT OF SURGERY EGS ICU Progress Note Division of Trauma and Critical Care ID: Mackenzie Hartley is a 58 year old female with COPD, Crohn's disease, chronic pain, and 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 while anticoagulated with warfarin transferre d to [facility] from [facility] for management of retroperitoneal bleed. She is s/p ex lap, splenectomy, and packing with lap pads at OSH and from reopening of laparotomy, evacua tion of 2-3 L of intraabdominal hematoma, closure of open abdomen SUBJECTIVE: Pulled DHT last night Neurologically improving daily Talked to last night at bedside, who feels like she is getting better MEDICATIONS: Current facility-administered medications:acetaminophen (TYLENOL) tablet 650 mg, 650 mg, or al, Q6H, Bartolo Thacker MD, 650 mg at 04/29/142039 alteplase (CATHFLO ACTIVASE) injection 2 mg, 2 mg, Intracatheter, PRN, Barbara Hoang MD artificial tears (hypromellose) (NATURES TEARS) 0.4 % ophthalmic drops 1 drop, 1 drop, Both Eyes, PRN, Willow Jones Colovos ACNP ascorbic acid liquid 500 mg, 500 mg, oral, BID, Bartolo Thacker MD, 500 mg at 04/29/14928 bisacodyl (DULCOLAX) suppository 10 mg, 10 mg, rectal, DAILY PRN, Marge Harris PA-C enoxaparin (LOVENOX) injection 90 mg, 1 mg/kg, subcutaneous, Q12H (Scheduled), Gayatri montemayor PA-C, 90 mg at 04/29/142048 famotidine (PEPCID) tablet 20 mg, 20 mg, oral, BID, Bartolo Thacker MD, 20 mg at 04/29 furosemide (LASIX) injection 20 mg, 20 mg, intravenous, BID ( and ), Gayatri Christensen PA-C, 20 mg at 04/29/141802 HYDROmorphone (DILAUDID) injection 0.2-1 mg, 0.2-1 mg, intravenous, Q2H PRN, Gayatri monzon PA-C, 0.5 mg at 04/30/1499 menthol-zinc oxide (CALAZIME) topical paste, , topical, TID PRN, ANAHI Lynch metoprolol tartrate (LOPRESSOR) tablet 25 mg, 25 mg, feeding tube, BID, Gayatri Christensen PA-C, 25 mg at 04/29/142034 nystatin (MYCOSTATIN) cream, , topical, QID PRN, Gayatri Christensen PA-C oxyCODONE (immediate release) (ROXICODONE) tablet 5-15 mg, 5-15 mg, oral, Q4H PRN, Prabhakar Thacker MD, 5 mg at 04/30/14101 predniSONE (DELTASONE) tablet 15 mg, 15 mg, oral, DAILY, Bartolo Thacker MD, 15 mg at 04/29/14928 senna (SENOKOT) liquid 8.8 mg, 5 mL, oral, BID, Bartolo Thacker MD, 8.8 mg at 04/29/142043 warfarin (COUMADIN) tablet 2 mg, 2 mg, feeding tube, QPM, Gayatri Christensen PA-C, 2 mg at 04/29/142038 zinc sulfate (ORAZINC) tablet 25 mg elemental, 110 mg total salt, oral, DAILY, Bartolo Thacker MD, 25 mg elemental at 04/29/14927 OBJECTIVE: BP 149/88 | Pulse 107 | Temp 36.5 C (97.7 F) | RR 26 | Ht 1.75 m (5' 8.9") | Wt 88 kg ( 194 lb 0.1 oz) | SpO2 97% | BMI 28.73 kg/(m^2) PHYSICAL EXAM: Gen: extubated, following commands Lungs: unlabored breathing CV: regular, tachycardic to 110s Abdomen: abthera in place. Extremities:Warm and well perfused. 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 Overall, she is improving. However, remains tachycardic with leukocytosis -- difficult to t ease out if this is secondary to asplenia. Will obtain CT abd pelvis today to clarify. Neuro: dilaudid IV PRN and intermittent versed for sedation CV: HD stable L VEGETABLE CANNER PSA resolved Pulm: titrate to O2 >92% GI: famotidine for stress ulcer ppx Renal: Creatinine improving. Heme/ID: Hct stable, . Heme consulted: Dr. Navarro states her IBD is causing her thrombosis. Suggests holding anticoagulation for now. Endo: home dose of 15 mg prednisone daily has been resumed. Wound: skin vac changed by EGS Dispo: can possibly transfer to floor today -- will see how she does Angeles Hannah MD General Surgery Resident, R3 Pager [phone] [facility] [place] [address] [address] [facility] [id number] Aravind Morales MD - 04/29/2014 11:43 AM PSTICU Attending: I saw and examined Mackenzie Hartley ([id number]) with Erin Christensen PA-C on 04/29/14 and agree wit h the assessment and plan as outlined in this note and participated in the planning of care. Hypercoagulable state - continue 1mg/kg enoxaparin and bridge to warfarin Severe protein malnutrition - continue enteral feeds Leukocytosis - no clear source of infection and afebrile. If not improved recommend CT sca n. Anasarca and fluid overload - continue diuresis, goal negative 1500 to 2000 mL. I spent 35 minutes at the beside providing critical care exclusive of time documented by Kaci Massey MD Quality Control Lead Trauma, Critical Care & Acute Care Surgery Gayatri Owusu P A-C - 04/29/2014 11:43 AM PST Trauma / Surgical Critical Care Service - Progress Note Name: MACKENZIE HARTLEY Date: 04/29/2014 Time: 11:43 AM Author: GAYATRI CHRISTENSEN PA-C HPI: 58 y.o. female admitted on 04/23/2014 10:39 AM with Crohn's, COPD, chronic pain, recurr ent UTIs, and known splenic artery thrombosis s/p retroperitoneal hemorrhage on therapeutic heparin infusion. Surgical exploration at referring hospital. She was transferred to [facility] fo r active hemorrhage. Hospital Day #6 ICU Day # 6 Lines: R IJ (OSH) Abx: none Procedures: 04/21/14: EGD with esophageal dilation 04/23/14: Reported Exlap, splenectomy, packing, vac dressing 04/23/14: Pelvic angiography with glue embolization, IR embolization of Left ileolumbar A 04/24/14: Exp lap: Removal of 3L intraabdominal clot, removal of packs, fascial closure, ski n vac placement 04/26/14: Left common femoral artery pseudoaneurysm - thrombin injection 24hr events: Labile level of alertness. Hemodynamics stable. Brisk response to diuresis. Oxygenating well on 2L NC but occasionally has increased work of breathing. Current meds: I have independently reviewed current medication Tylenol QID cathflo PRN Vitamin C Dulcolax PRN lovenox 90mg BID pepcid BID Lasix 20mg IV BID X3 Dilaudid PRN Metop 25mg BID Oxycodone PRN Prednisone 15mg daily Senna Warfarin zinc Labs: EPIC Significant Results reviewed Imaging: I have reviewed applicable imaging. Vitals: BP 150/85 | Pulse 111 | Temp 36.8 C (98.2 F) | RR 28 | Ht 1.75 m (5' 8.9") | Wt 88 kg (194 lb 0.1 oz) | SpO2 95% | BMI 28.73 kg/(m^2) Intake/Output Summary (Last 24 hours) at 04/29/14 1143 Last data filed at 04/29/14 1100 Gross per 24 hour Intake 2035 ml Output 2580 ml Net -545 ml Physical exam: Constitutional: up in chair, uncomfortable repeated requesting to go back to bed. Weak. HEENT grossly intact Neurologic: weak but moves all extremities to command Cardiovascular: RRR Respiratory: clear but diminished at bases Gastrointestinal: soft, flat, midline intact without drainage or erythema Genitourinary: wolf draining yellow urine Musculoskeletal: warm and well perfused with pitting anasarca in all extremities. Very thin skin. Active issues/Plan: Encephalopathy, metabolic: minimize centrally acting medications Splenic artery thrombosis/hypercoag state: driven from IBD, appreciate hem recs- they have signed off. Therapeutic lovenox bridge to warfarin. HTN home dose of metoprolol started Crohn's disease: prednisone, holding Q6W Remicade Severe malnutrition: TFs and H2O Hyernatremia: resolving cont current H2O via DHT Dysphagia: BIAS CUTTING MACHINE OPERATOR VERTICAL consulted, ice chips only. Cont meds and feed via DHT Leukocytotosis: afebrile with no clear source of infection. If decompensates or febrile the n panculture and ABX. If persist on 04/[address] chest abd and pelvis with oral and IV contrast. Anasarca: compression socks, fluid goal -1.5L. Have scheduled 3 doses of lasix. Deconditioning: PT and OT consulted Stool incontinence: not a chronic issue, C diff negative. Continue to monitor CODE STATUS: Intubate if needed, DNR. Resolved or chronic issues/Plan: Hemorrhagic shock: 04/22 s/p IR embolization of Left ileolumbar A. Hct stable. No indication for transfusion at this time Open abd: fascia closed, skin vac present Paroxsysmal Atrial fibrillation: recently on amiodarone at referring. In NSR in house Acute on chronic anemia: HCT stable no indication for transfusion at this time Hypoxic Respiratory Insufficiency: extubated 04/26 Coagulopathy: resolved, no active bleeding Left common femoral pseudoaneurysm: s/p thrombin injection JULIANE: ATN from shock, resolving. F:TFs A:tylenol, oxy, dilaudid S:none T:lovenox warfarin H:HOB elevated U:H2 jarrod G:SSI B:held for liquid stool I:PICC for labs and meds. Wolf for wound management D:no ABX Spines:NA Goals of care: Intubate if needed. DNR. Dispo:Making progress. Stable elevated WBCs. Diurese. Consider moore tomorrow. Discussed with Dr. Massey on TSICU rounds. I spent 45 minutes exclusive of time spent with att endings. Erin Christensen PA-C Dept of Surgery SICU/TICU Contact First Call team 01/11 for questions: Team Pager [phone] Chelly Blum MD,M PH - 04/28/2014 3:03 PM PSTICU Attending Note Mackenzie Hartley is critically ill with acute blood loss anemia and requires high complexity dec ision making for assessment and support including hemodynamic monitoring and restarting anti coagulation. Care during the described time interval was provided by me. I have reviewed this patient's available data, including medical history, events of note, physical examination and test re sults, and have overseen the activities of the other members of the team under my direct sup ervision (e.g. House officers, physician assistants, nurse practitioners) on 04/28/14. Critical care time personally devoted to evaluation and care, independent of teaching and p rocedures: 35 minutes. CHELLY FOSTER MD,MPH Gayatri Owusu PA-C - 04/28/2014 3:03 PM PSTFormatting of this note might be different from the jonathon ivy Trauma / Surgical Critical Care Service - Progress Note Name: MACKENZIE HARTLEY Date: 04/28/2014 Time: 3:03 PM Author: GAYATRI CHRISTENSEN PA-C HPI: 58 y.o. female admitted on 04/23/2014 10:39 AM with Crohn's, COPD, chronic pain, recurr ent UTIs, and known splenic artery thrombosis s/p retroperitoneal hemorrhage on therapeutic heparin infusion. Surgical exploration at referring hospital. She was transferred to [facility] fo r active hemorrhage. Hospital Day #5 ICU Day # 5 Lines: R IJ (OSH) , Left port Abx: none Procedures: 04/21/14: EGD with esophageal dilation 04/23/14: Reported Exlap, splenectomy, packing, vac dressing 04/23/14: Pelvic angiography with glue embolization, IR embolization of Left ileolumbar A 04/24/14: Exp lap: Removal of 3L intraabdominal clot, removal of packs, fascial closure, ski n vac placement 04/26/14: Left common femoral artery pseudoaneurysm - thrombin injection 24hr events: Continues to oxygenate well with simple NC. Mild HTN and persistent tachycardia. Afebrile. Current meds: I have independently reviewed current medication Tylenol QID cathflo Vitamin C Dulcolax PRN lovenox 90mg BID pepcid BID Dilaudid PRN Metop 25mg BID Oxycodone PRN predinsone 15mg daily Senna BID Warfarin zinc Labs: EPIC Significant Results reviewed K 3.5 Mg 1.9 Phos 2.1 BUN/Cr 38/0.7 WBC 26 HCT 28 Plts 76 INR 1.0 Hep level 0.63 Imaging: I have reviewed applicable imaging. Vitals: BP 155/94 | Pulse 106 | Temp 36.2 C (97.2 F) | RR 24 | Ht 1.75 m (5' 8.9") | Wt 88 kg (194 lb 0.1 oz) | SpO2 96% | BMI 28.73 kg/(m^2) Intake/Output Summary (Last 24 hours) at 04/28/14 1509 Last data filed at 04/28/14 1400 Gross per 24 hour Intake 3593 ml Output 1665 ml Net 1928 ml Physical exam: Constitutional: weak but in no distress HEENT grossly intact Neurologic: follow commands, alert and oriented Cardiovascular: Regular and tachy 110s Respiratory: rate 20-24 Diminished at bases but clear from anterior Gastrointestinal: soft, flat, stable midline incision without erythema or drainage Genitourinary: yellow urine in wolf Musculoskeletal: warm and well perfused, friable skin, pitting anasarca Active issues/Plan: Encephalopathy, metabolic: minimize centrally acting medications Splenic artery thrombosis/hypercoag state: driven from IBD, appreciate hem recs- they have signed off. Therapeutic lovenox bridge to warfarin. HTN home dose of metoprolol started, may need to titrate up Crohn's disease: prednisone, holding Q6W Remicade Severe malnutrition: resume TFs and H2O Hyernatremia: resolving, reduce H2O to 30ml/hr Dysphagia: BIAS CUTTING MACHINE OPERATOR VERTICAL consulted, ice chips only. Cont meds and feed via DHT Leukocytotosis: afebrile with no clear source of infection. If decompensates or febrile the n panculture and ABX. If persist on 04/[address] chest abd and pelvis with oral and IV contrast. Anasarca: compression socks, fluid goal even. Gave single dose of lasix. Deconditioning: PT and OT consulted Stool incontinence: not a chronic issue, C diff negative. Continue to monitor CODE STATUS: Intubate if needed, DNR. Resolved or chronic issues/Plan: Hemorrhagic shock: 04/22 s/p IR embolization of Left ileolumbar A. Hct stable. No indication for transfusion at this time Open abd: fascia closed, skin vac present Paroxsysmal Atrial fibrillation: recently on amiodarone at referring. In NSR in house Acute on chronic anemia: HCT stable no indication for transfusion at this time Hypoxic Respiratory Insufficiency: extubated 04/26 Coagulopathy: resolved, no active bleeding Left common femoral pseudoaneurysm: s/p thrombin injection JULIANE: ATN from shock, resolving. F:TFs A:tylenol, oxycodone S:none T:lovenox tx H:HOB elevated U:H2 jarrod G:No insulin needs B:regimen available I:PICC for labs and meds, remove wolf and if wound issues and incontinence may need replac ed D:no ABX at this point Spines:NA Dispo:Making progress, anticipate moore in AM. Discussed with Dr. Foster on TSICU rounds. I spent 34 minutes exclusive of time spent with attendings. Erin Christensen PA-C Dept of Surgery SICU/TICU Contact First Call team 01/11 for questions: Team Pager [phone] Angeles Acevedo MD - 04/28/2014 5:18 AM PST [facility] DEPARTMENT OF SURGERY EGS ICU Progress Note Division of Trauma and Critical Care ID: Mackenzie Hartley is a 58 year old female with COPD, Crohn's disease, chronic pain, and 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 while anticoagulated with warfarin transferre d to [facility] from [facility] for management of retroperitoneal bleed. She is s/p ex lap, splenectomy, and packing with lap pads at OSH and from reopening of laparotomy, evacua tion of 2-3 L of intraabdominal hematoma, closure of open abdomen SUBJECTIVE: Extubated, neurologically doing much better. 3 L NC Underwent successful thrombin injection of L VEGETABLE CANNER pseudoaneurysm by IR 04/26 MEDICATIONS: Current facility-administered medications:acetaminophen (TYLENOL) tablet 650 mg, 650 mg, or al, Q6H, Bartolo Thacker MD, 650 mg at 04/27/142051 alteplase (CATHFLO ACTIVASE) injection 2 mg, 2 mg, Intracatheter, PRN, Barbara Hoang MD artificial tears (hypromellose) (NATURES TEARS) 0.4 % ophthalmic drops 1 drop, 1 drop, Both Eyes, PRN, Willow L Colovos, ACNP ascorbic acid liquid 500 mg, 500 mg, oral, BID, Bartolo Thacker MD, 500 mg at 04/27/142051 bisacodyl (DULCOLAX) suppository 10 mg, 10 mg, rectal, DAILY PRN, Marge Harris PA-C dextrose 5%-NaCl 0.45% IV infusion, 20 mL/hr, intravenous, CONTINUOUS, Sunshine Jennings, Last Rate: 20 mL/hr at 04/27/141999, 20 mL/hr at 04/27/141999 famotidine (PEPCID) tablet 20 mg, 20 mg, oral, BID, Bartolo Thacker MD, 20 mg at 04/27 heparin bolus from continuous infusion 3,500 Units, 40 Units/kg, intravenous, NEEDED (REBECA HERNANDEZ), Nithya Bailey MD heparin bolus from continuous infusion 7,050 Units, 80 Units/kg, intravenous, NEEDED (REBECA DAVID), Nithya Bailey MD, 7,050 Units at 01/17/15 1402 heparin in D5W IV infusion 25,000 units/250 mL, 1-2,000 Units/hr, intravenous, CONTINUOUS, Nithya Bailey MD, Last Rate: 18.5 mL/hr at 04/27/14 2100, 1,850 Units/hr at 04/27/14 2 100 HYDROmorphone (DILAUDID) injection 0.2-1 mg, 0.2-1 mg, intravenous, Q2H PRN, Gayatri monzon PA-C, 1 mg at 04/27/14 0257 menthol-zinc oxide (CALAZIME) topical paste, , topical, TID PRN, Willow L Colovos, ACNP nystatin (MYCOSTATIN) cream, , topical, QID PRN, Gayatri Christensen PA-C oxyCODONE (immediate release) (ROXICODONE) tablet 5-15 mg, 5-15 mg, oral, Q4H PRN, Prabhakar Thacker MD, 5 mg at 04/27/14 1629 predniSONE (DELTASONE) tablet 15 mg, 15 mg, oral, DAILY, Bartolo Thacker MD, 15 mg at 04/27/14 1151 senna (SENOKOT) liquid 8.8 mg, 5 mL, oral, BID, Bartolo Thacker MD zinc sulfate (ORAZINC) tablet 25 mg elemental, 110 mg total salt, oral, DAILY, Bartolo Thacker MD, 25 mg elemental at 04/27/14 1151 OBJECTIVE: BP 145/89 | Pulse 101 | Temp 36.4 C (97.5 F) | RR 21 | Ht 1.75 m (5' 8.9") | Wt 88 kg ( 194 lb 0.1 oz) | SpO2 98% | BMI 28.73 kg/(m^2) PHYSICAL EXAM: Gen: extubated, following commands Lungs: unlabored breathing CV: regular, tachycardic to 110s Abdomen: abthera in place. Extremities:Warm and well perfused. 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 Neuro: dilaudid IV PRN and intermittent versed for sedation CV: HD stable Per vascular: arterial duplex of L VEGETABLE CANNER to assess for stability of PSA shows resolution. co ntinue to monitor pulses (can extend frequency to q4) Pulm: titrate to O2 >92% GI: famotidine for stress ulcer ppx Renal: Creatinine improving. Heme/ID: Hct stable, 24. Heme consulted: Dr. Navarro states her IBD is causing her thrombosis. Suggests holding anticoagulation for now. Endo: home dose of 15 mg prednisone daily has been resumed. Wound: skin vac in place, will leave for 5 days. Dispo: continue critical care. Angeles Hannah MD General Surgery Resident, R3 Pager [phone] [facility] [place] [address] [place] [facility] [place] [address] Xin Irizarry M D - 04/27/2014 11:55 AM PSTHematology Attending I performed a history and physical examination of the patient and discussed her management with the resident. I reviewed the resident s note and agree with the documented findings and plan of care. Impression: H/o of recurrent thrombosis and we recent intra-abdominal bleeding at OSH. No w stable from hematology standpoint on heparin drip. Data Review: Outside records are reviewed, including office visit notes, and other relevant diagnosti c imaging and laboratory study results [facility] DEPARTMENT: [id number] - HEM FACULTY [facility] Place of Service: - Inpatient Date of Service: 04-27-2014 Modifiers: GC - Resident Involved Suggested CPT: 55417 - Initial, Comp; Mod complex 50 min XIN AGEE MD [facility] [address] [place] [address] wpriya Rudy Markham Adriel - 04/27/2014 11:55 AM PST Hematology Consult Progress Note Primary Service: EGS Primary Attending: Jf Wiseman MD Hospital Length of Stay: 4 Interval Events: - extubated - thrombin injection to VEGETABLE CANNER pseudoaneurysm - heparin gtt started last night Subjective: Patient is unable to provide history as she remains encephalopathic. Did speak with her , who confirmed history obtained in initial heme consult note. States she givens s been on warfarin since her 2011 [facility] admission with no known thrombotic events since that time. Objective: Physical Exam: Vital Signs Last 24 hour min/max Temp: 36.5 C (97.7 F) Temp Min: 36.5 C (97.7 F) Max: 37.4 C (99.3 F) Pulse: 109 Pulse Min: 61 Max: 115 Resp: 16 Resp Min: 11 Max: 23 BP: 160/91 mmHg BP Min: 119/72 Max: 177/114 SpO2: 96 % SpO2 Min: 92 % Max: 100 % Body mass index is 28.73 kg/(m^2). General: confused appearing woman in NAD HEENT: normocephalic, atraumatic, no scleral icterus Pulm: no increased work of breathing, good air movemen Abdomen: soft, non-distended, no rebound, no guarding Extremities: anasarca, with LUE edema >R Labs: CBC: last 3 results Recent Labs 04/25/14 2359 04/26/14 0907 04/26/14 2202 04/27/14 0433 WBC 27.13* 27.68* 26.76* 25.98* HB 7.8* 8.1* 7.7* 8.0* HCT 24.4* 26.1* 24.3* 25.5* PLT 70* 66* 42* 54* NEUTROPERC 87.8* -- -- -- LYMPHPERC 3.0* -- -- -- MONOPERC 5.6 -- -- -- BASOPERC 0.3 -- -- -- EOSPERC 0.2* -- -- -- Assessment & Recommendations: Mackenzie Hartley is a 58 y.o. Woman with hypercoagulable disorder with history of multiple arterial thrombi, TIAs and paroxysmal atrial fibrillation admitted with massive RP hematoma due to iliolumbar arterial bleed which occurred in setting of respi ratory failure and heparin therapy. SHe has been HD stable with no e/o ongoing bleed and has been started on a heparin gtt. As she has no history of thrombotic events on warfarin, would be reasonable to transition t o warfarin after a period of stability on heparin infusion. Summary of recommendations: - continue heparin gtt - when therapeutic with no bleeding for 24-48 hours, transition to warfarin with heparin or LMWH bridge. Thank you for this consult. We will sign off. Pt was staffed with Dr. Xin Agee, attending physician, who agrees with the assessme nt and plan. Rudy Sarmiento, DO [facility] Internal Medicine PGY3 Pager [phone] Mirela Josue MD - 04/27/2014 10:49 AM PST [facility] Department of Surgery Progress Note Author: Lucy Marks MD Attending Physician: Sukumar Thompson MD 04/27/2014 10:49 AM VASCULAR AND ENDOVASCULAR SURGERY Progress Note: Hospital Day #: 4 ATTENDING: Jf Wiseman MD Identification: Mackenzie Hartley is a 58 y.o. female admitted to the SICU for retroperitoneal h ematoma requiring laparotomy, packing, transfer to ICU and embolization of the left iliolumb ar artery. Vascular Surgery was consulted yesterday for left common femoral artery pseudoane urysm at site of femoral access for angio/embolization. Interval Events: Ms. Hartley underwent successful thrombin injection of the left VEGETABLE CANNER pseudoaneurysm by IR last night. Heparin restarted by ICU team after procedure. Objective: Last Vitals: BP 160/91 | Pulse 109 | Temp 36.5 C (97.7 F) | RR 16 | Ht 1.75 m (5' 8.9") | Wt 88 kg (194 lb 0.1 oz) | SpO2 96% | BMI 28.73 kg/(m^2) Intake/Output Summary (Last 24 hours) at 04/27/14 1049 Last data filed at 04/27/14 1000 Gross per 24 hour Intake 2000.05 ml Output 1565 ml Net 435.05 ml Physical Exam: Gen: Alert, extubated, up in chair, answering questions Chest: Breathing unlabored with face mask in place Extremities: Left lower extremity pulses not palpable due to edema, but excellent triphasic dorsalis ped is and posterior tibial signals at foot Labs: CBC with diff last 72 hours (or 3 results) Recent Labs 04/25/14235804/26/14 0907 04/26/14 2202 04/27/14 0433 WBC 27.13* 27.68* 26.76* 25.98* HB 7.8* 8.1* 7.7* 8.0* HCT 24.4* 26.1* 24.3* 25.5* PLT 70* 66* 42* 54* NEUTROPERC 87.8* -- -- -- LYMPHPERC 3.0* -- -- -- MONOPERC 5.6 -- -- -- BASOPERC 0.3 -- -- -- EOSPERC 0.2* -- -- -- Chemistries: Last 72 Hours (or 3 results): Recent Labs 04/25/14235804/26/14 1351 04/26/14194004/27/14 0433 NA 151* -- 152* 152* K 4.0 -- 3.7 4.1 CL 116* -- 116* 115* BICARB 32 -- 31 33* BUN 51* -- 48* 46* CR 1.11* -- 0.90 0.86 GLU 123* 156* 93 86 CA 8.9 -- 8.4* 8.8 MG 2.4 -- 2.0 1.9 PO4 2.9 -- 2.5 2.5 Imaging Assessment and Plan: Mackenzie Hartley is a 58 y.o. female, hospital day # 4, POD# 1 s/p ultraso und guided thrombin injection of left VEGETABLE CANNER pseudoanuerysm. 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 It is accurate to the best of my knowledge, and is s ubject to modification based on clinical developments, new data, or final imaging results. [facility] staff I saw and evaluated the patient. I agree with the findings and the plan of care as eptern laxmi in the resident s note. Left femoral pseudoaneurysm appears resolved. Stable from [facility] standpoint. No further imaging required unless clinical status changes. Mirela Thompson M.D. [facility] Vascular Surgery [address] [place] [address] Email: [email or web address] Jf Jones MD - 04/27/2014 8:03 AM PST Trauma / Surgical Critical Care Service - Progress Note Name: MACKENZIE HARTLEY Date: 04/27/2014 Time: 8:04 AM Author: GAYATRI CHRISTENSEN PA-C HPI: 58 y.o. female admitted on 04/23/2014 10:39 AM with Crohn's, COPD, chronic pain, recurr ent UTIs, and known splenic artery thrombosis s/p retroperitoneal hemorrhage on therapeutic heparin infusion. Surgical exploration at referring hospital. She was transferred to [facility] fo r active hemorrhage. Hospital Day #4 ICU Day # 4 Lines: R IJ (OSH) , Left port Abx: none Procedures: 04/21/14: EGD with esophageal dilation 04/23/14: Reported Exlap, splenectomy, packing, vac dressing 04/23/14: Pelvic angiography with glue embolization, IR embolization of Left ileolumbar A 04/24/14: Exp lap: Removal of 3L intraabdominal clot, removal of packs, fascial closure, ski n vac placement 04/26/14: Left common femoral artery pseudoaneurysm - thrombin injection 24hr events: IR thrombin injection of LCFA pseudoaneurysm. Extubated. Oxygenating well on minimal O2. Heparin infusion started. Current meds: I have independently reviewed current medication Tylenol QID cathflo Vitamin C Dulcolax PRN D5 1/2NS 75ml/hr pepcid BID Heparin infusion Dilaudid PRN Nystatin cream Oxycodone PRN Prednisone 15mg daily Senna BID zinc Labs: EPIC Significant Results reviewed Na 152 Cl 115 K 4.1 Mg 1.9 Phos 2.5 AST/ALT 216/344 AlkPhos 235 Tbili 1.6 WBC 25.9 HCT 25 Plts 54 Hep 0.24 Imaging: I have reviewed applicable imaging. Vitals: BP 163/89 | Pulse 99 | Temp 36.8 C (98.2 F) | RR 20 | Ht 1.75 m (5' 8.9") | Wt 88 kg (194 lb 0.1 oz) | SpO2 96% | BMI 28.73 kg/(m^2) Intake/Output Summary (Last 24 hours) at 04/27/14 0804 Last data filed at 04/27/14 0700 Gross per 24 hour Intake 1977.05 ml Output 1410 ml Net 567.05 ml Physical exam: Constitutional: mild labored breathing. Very weak. No distress. HEENT grossly nonfocal Neurologic: follows commands, very weakly moves all extremities Cardiovascular: RRR Respiratory: clear and equal bilaterally Gastrointestinal: soft, flat, wound vac taken down with staff and staple closure is clean a nd intact without erythema or drainage. Genitourinary: wolf draining yellow urine. Bilateral medial thighs with erythema, blanchin g, worse on left. Not well demarcated. Musculoskeletal: atrophic skin, pitting anasarca Active issues/Plan: Encephalopathy, metabolic: minimize centrally acting medications Splenic artery thrombosis/hypercoag state: driven from IBD, appreciate hem recs. Heparin in fusion for now, if no active bleeding after 24hrs then therapeutic lovenox bridge to warfari n. 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 Leukocytotosis: afebrile with no clear source of infection. If decompensates or febrile the n panculture and ABX. If persist on POD 7-[address] chest abd and pelvis with oral and IV contrast. Anasarca: compression socks, no active diuresis. CODE STATUS: No CPR, intubation and pressors acceptable. Will discuss with patient and husb and wishes regarding reintubation. Resolved or chronic issues/Plan: Hemorrhagic shock: 04/22 s/p IR embolization of Left ileolumbar A. Hct stable. No indication for transfusion at this time Open abd: fascia closed, skin vac present Paroxsysmal Atrial fibrillation: recently on amiodarone at referring. In NSR in house Acute on chronic anemia: HCT stable no indication for transfusion at this time Hypoxic Respiratory Insufficiency: extubated 04/26 Coagulopathy: resolved, no active bleeding F:TFs A:tylenol, oxy, dilaudid S:none T:heparin infusion H:HOB elevated U:pepcid G:SSI B:senna I:PICC, if off heparin then deaccess port. Remove wolf. D:no ABX Spines:NA Dispo:Cont supportive care. Discuss goals of care with patient and . Discussed with Dr. Wiseman on TSICU rounds. I spent 39 minutes exclusive of time spent with attendings. Erin Christensen PA-C Dept of Surgery SICU/TICU Contact First Call team 01/11 for questions: Team Pager [phone] ATTENDING ADDENDUM: I saw and examined Mackenzie Hartley with DARLING Christensen on 04/27 and agree with the assessment and plan as outlined in this note and participated in the planning of care. Ms. Hartley yesy nues to recover in the ICU. She was extubated yesterday and has had a stable respiratory sta tus. She has not had signs of new hemorrhage, but does have a persistently elevated WBC and tachycardia. We will hold off on a CT scan given the short time since her operation. Her inc ision is healing well without evidence of cellulitis. She will remain in the ICU for close s upport and monitoring. I spent 20 minutes providing critical care exclusive of procedures and exclusive of time sp ent by Erin Christensen PA-C. Jf Wiseman MD FACS collar turner operator Division of Trauma, Critical Care, and Acute Care Surgery [phone] aElda tejada MD - 04/27/2014 4:52 AM PST EMERGENCY GENERAL SURGERY ICU PROGRESS NOTE: Attending Physician: Jf Wiseman MD 04/27/2014 ID: Mackenzie Hartley is a 58 year old female with COPD, Crohn's disease, chronic pain, and 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 She is s/p ex lap, splenectomy, and packing with lap pads at OSH and POD 2 from reopening of laparotomy, evacu ation of 2-3 L of intraabdominal hematoma, closure of open abdomen PROCEDURES: 04/24/14: Evacuation of intraabdominal hematoma, LAINE, Control of retroperitoneal hemorrhage, Closure of laparotomy, Skin VAC placement 04/26/14: Left common femoral artery pseudoaneurysm - thrombin injection 24 HR EVENTS: - Incidentally found to have VEGETABLE CANNER pseudoaneurysm, injected with thrombin by IR - Extubated last night to 1-2 L oxy mask - Hct roughly stable - Persistent leukocytosis to 27 MEDICATIONS: Current facility-administered medications:acetaminophen (TYLENOL) tablet 650 mg, 650 mg, or al, Q6H, Bartolo Thacker MD alteplase (CATHFLO ACTIVASE) injection 2 mg, 2 mg, Intracatheter, PRN, Barbara Hoang MD artificial tears (hypromellose) (NATURES TEARS) 0.4 % ophthalmic drops 1 drop, 1 drop, Both Eyes, PRN, Willow L Colovos, ACNP ascorbic acid liquid 500 mg, 500 mg, oral, BID, Bartolo Thacker MD bisacodyl (DULCOLAX) suppository 10 mg, 10 mg, rectal, DAILY PRN, Marge Harris PA-C chlorhexidine (PERIDEX) mouthwash 15 mL, 15 mL, oral, Q6H, Gayatri Christensen PA-C, 15 mL a t 04/26/142046 dextrose 5%-NaCl 0.45% IV infusion, 75 mL/hr, intravenous, CONTINUOUS, DARLING Vargas, Last Rate: 75 mL/hr at 04/27/14 0400, 75 mL/hr at 04/27/14 0400 famotidine (PEPCID) tablet 20 mg, 20 mg, oral, BID, Bartolo Thacker MD heparin bolus from continuous infusion 3,500 Units, 40 Units/kg, intravenous, NEEDED (REBECA DAVID), Nithya Bailey MD heparin bolus from continuous infusion 7,050 Units, 80 Units/kg, intravenous, NEEDED (REBECA DAVID), Nithya Bailey MD heparin in D5W IV infusion 25,000 units/250 mL, 1-2,000 Units/hr, intravenous, CONTINUOUS, Nithya Bailey MD, Last Rate: 16 mL/hr at 04/27/14 0400, 1,600 Units/hr at 04/27/14 040 0 HYDROmorphone (DILAUDID) injection 0.2-1 mg, 0.2-1 mg, intravenous, Q2H PRN, Gayatri monzon PA-C, 1 mg at 04/27/14 0257 lactated ringers IV, 10 mL/hr, intravenous, CONTINUOUS, Marge Harris PA-C, 10 mL/hr at 04/26/14 0500 menthol-zinc oxide (CALAZIME) topical paste, , topical, TID PRN, Willow L Colovos, ACNP nystatin (MYCOSTATIN) cream, , topical, QID PRN, Gayatri Christensen PA-C oxyCODONE (immediate release) (ROXICODONE) tablet 5-15 mg, 5-15 mg, oral, Q4H PRN, Prabhakar Thacker MD predniSONE (DELTASONE) tablet 15 mg, 15 mg, oral, DAILY, Bartolo Thacker MD senna (SENOKOT) liquid 8.8 mg, 5 mL, oral, BID, Bartolo Thacker MD zinc sulfate (ORAZINC) tablet 25 mg elemental, 110 mg total salt, oral, DAILY, Bartolo Thacker MD VITAL SIGNS: Temp Av.1 C (98.7 F) Min: 36.7 C (98 F) Max: 37.4 C (99.3 F) Pulse Av.4 Min: 61 Max: 118 Systolic (24hrs), Av mmHg, Min:119 mmHg, Max:163 mmHg Diastolic (24hrs), Av mmHg, Min:63 mmHg, Max:102 mmHg Resp Av.8 Min: 11 Max: 23 SpO2 Av.9 % Min: 92 % Max: 100 % Intake/Output Summary (Last 24 hours) at 04/27/14 0452 Last data filed at 04/27/14 0300 Gross per 24 hour Intake 1988.8 ml Output 1580 ml Net 408.8 ml DRIPS: heparin PHYSICAL EXAM: General: Awake and alert Respiratory: clear breath sounds CV: RRR Abdomen: skin vac in place, holding suction, soft, ND, NT : wolf catheter in place, urine yellow Extremities: Warm and well perfused, significant pitting anasarca LABS: Chemistries Recent Labs 04/25/14 0004 04/25/14 1307 04/25/14 1836 04/25/14 2359 04/26/14 1941 NA 153* -- 151* 151* 152* K 3.6 -- 4.3 4.0 3.7 CL 116* -- 116* 116* 116* BICARB 32 -- 32 32 31 BUN 41* -- 43* 51* 48* CR 1.17* -- 1.11* 1.11* 0.90 CA 8.4* -- 8.7 8.9 8.4* MG 1.9 -- -- 2.4 2.0 PO4 4.5 -- 3.2 2.9 2.5 AST -- 399* -- -- -- ALT -- 433* -- -- -- AP -- 168* -- -- -- TBILI -- 1.5* -- -- -- ALB 1.8* 2.2* 2.0* 2.0* 1.7* Lab Results Component Value Date PH 7.43 04/24/2014 PCO2 45* 04/24/2014 PO2 70* 04/24/2014 HCO3 30.1* 04/24/2014 FIO2 40.0 04/24/2014 Lab Results Component Value Date URINECOLOR Yellow 04/23/2014 URAPPEARANCE Mod. Cloudy 04/23/2014 URINELE Negative 04/23/2014 URINENITRITE Negative 04/23/2014 URINEUROBILI <2.0 04/23/2014 URINEPROTEIN Negative 04/23/2014 URINEPH 5.0 04/23/2014 URINEBLOOD Moderate 04/23/2014 URINEKETONES Negative 04/23/2014 URINEBILI Negative 04/23/2014 URINEGLUCOSE Negative 04/23/2014 Lab Results Component Value Date URINEAMPPHOS None 04/23/2014 URINEBACTERI None 04/23/2014 URINECAOX None 04/23/2014 URINECAST 0 04/23/2014 URINEGRANCAS 0 04/23/2014 URINEHYALINE 0 04/23/2014 URINEMUCOUS None 04/23/2014 URINEEPITH None 04/23/2014 URINEREDCELL 1 04/23/2014 URINESQEPI None 04/23/2014 URINEPO4 None 04/23/2014 URINEWBC <1 04/23/2014 URINEYEAST None 04/23/2014 CBC with diff Recent Labs 04/25/14 2359 04/26/14 0907 04/26/14 2202 WBC 27.13* 27.68* 26.76* HB 7.8* 8.1* 7.7* HCT 24.4* 26.1* 24.3* PLT 70* 66* 42* NEUTROPERC 87.8* -- -- LYMPHPERC 3.0* -- -- MONOPERC 5.6 -- -- BASOPERC 0.3 -- -- EOSPERC 0.2* -- -- Coag No components found with this basename: inr, ptt, pt CBG's Recent Labs 04/24/14 1047 04/24/14 1709 04/25/14 0004 04/25/14 1313 04/25/14 1836 04/25/14 1840 04/25/14 2359 04/26/14 1351 04/26/14 1941 GLU 94 130* 126* 157* 129* 142* 123* 156* 93 Cultures Blood culture 04/26 : NGTD ACTIVE PROBLEMS AND PLAN: Mackenzie Hartley is a 58 year old female with COPD, Crohn's disease, chronic pain, and 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 Neuro: oxy via feeding tube, dilaudid PRN CV: HD stable Pulm: extubated last night, continue to monitor closely GI: famotidine for stress ulcer ppx. Evaluate ability to swallow now that extubated. Renal: Creatinine is now WNL, UOP adequate Heme/ID: Hct stable, 24. Heme consulted: Dr. Navarro states her IBD is causing her thrombosis. On therpeutic hepa rin, to be started on lovenox when stable, possible today Endo: continue home dose of 15 mg prednisone daily Wound: skin vac in place, will leave for 5 days. Lines: Port, Power PICC, wound vac, wolf Dispo: ICU > [address] Wiseman is the attending of record for this patient encounter. 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 Partially thrombosed left common femoral artery pseudoaneurysm, with minimal residual f low on color Doppler sonography. 2. Successful percutaneous thrombosis of pseudoaneurysm via instillation of IA thrombin, w ith no flow seen on color Doppler sonography. These results were discussed with Dr. Janeth Bailey at the time of this note. Patient can re sume heparin gtt 4 hours post-procedure, with no bolus. Please see fully dictated report for further details. YanyDcSharron, RN - 04/26/2014 5:17 PM PST Interventional Radiology Procedure Nursing Handoff Note Procedure: Thrombin injection into pseudoaneurysm Angio Attending:Dr. Lenny Calhoun MD (Fellow)/pager: Dr. Vang [phone] Medications Procedure Meds: Dilaudid IV 0.5mg Midazolam IV 1mg Access site(s): Left fem pseudoaneurysm Activity post procedure (eg: leg straight / HOB length of time): ad salvatore Pt. location prior to Angio: 7A MICU Pt. disposition post recover: 7A MICU Last 24 hour min/max Temp: 37.4 C (99.3 F) Temp Min: 36.6 C (97.9 F) Max: 37.4 C (99.3 F) Pulse: 75 Pulse Min: 70 Max: 118 Resp: 20 Resp Min: 11 Max: 23 BP: 129/69 mmHg BP Min: 129/69 Max: 165/100 SpO2: 99 % SpO2 Min: 93 % Max: 100 % Body mass index is 28.73 kg/(m^2). Past Medical History Diagnosis Date Other general symptoms(780.99) Hypertension Irritable bowel syndrome Regional enteritis of unspecified site GERD (gastroesophageal reflux disease) High risk for colon cancer UTI (urinary tract infection) Depressive disorder, not elsewhere classified Anxiety state, unspecified Unspecified hemorrhagic conditions PFO (patent foramen ovale) 03/16/2012 Popliteal artery thrombosis, right 03/14/2012 Lines, Drains and Wounds Drains (wounds/surgical) Wound Vac (Active) Insertion Site Assessment Dressing C/D/I 04/26/2014 12:00 PM Drain Assessment To Suction (comment how much suction) 04/26/2014 12:00 PM Drain Drainage apperance Blood;Serosanginious 04/24/2014 4:00 AM Drain Dressing/Site Care Clean/dry/intact 04/26/2014 12:00 PM Bag/Cannister Changed No 04/24/2014 4:00 AM Wound Drain Output 0 04/26/2014 6:00 AM Therapy Setting (Negative Pressure Wound Therapy) continuous therapy 04/26/2014 12:00 PM Pressure Setting (Negative Pressure Wound Therapy) 75 mmHg 04/26/2014 12:00 PM Number of days: Central Line power picc Right (Active) Line Status Other (comment) 04/26/2014 3:30 PM Cm Exposed 2 cm 04/24/2014 4:00 AM IV Assessment Unable to flush;Negative blood return 04/26/2014 3:30 PM Interventions IV therapy eval;Cap changed;De-clot procedure 04/26/2014 3:30 PM I/O (mL) Saline Flush Volume 30 mL 04/26/2014 4:00 AM Number of days: Central Line Portacath Left (Active) Line Status HL 04/26/2014 12:00 PM Cm Exposed 0 cm 04/24/2014 4:00 AM IV Assessment Clean, Dry, Intact 04/26/2014 12:00 PM Interventions Securement device in place 04/26/2014 12:00 PM I/O (mL) Saline Flush Volume 10 mL 04/24/2014 10:00 AM Number of days: Incision Leg Incision medial;Right: leg (Active) Number of days:770 Gastric/Feeding Tube Oral OG (Active) Insertion Site Assessment Open to air 04/26/2014 12:00 PM Gastric/Feeding Tube Status Intact;Taped 04/26/2014 12:00 PM Placement in centimeters 55 cm 04/25/2014 4:00 AM Placement Verification Confirm faye at nare/lip;Aspirate evaluated 04/26/2014 12:00 PM I/O (mL) Tube Feed 45 mL 04/26/2014 11:00 AM Tube Feed Rate 45 mL/hr 04/26/2014 12:00 PM Tube Feed Type impact peptide 1.5 04/26/2014 12:00 PM I/O (mL) Free Water 100 mL 04/26/2014 12:00 PM I/O (mL) Other Input 60 mL 04/26/2014 4:00 AM Tube Feed Residuals 5 mL 04/26/2014 4:00 AM Residuals Re-fed? Yes 04/26/2014 12:00 PM Output Quality milky;yellow 04/26/2014 12:00 PM Number of days: Urinary Cath Placement (Amanda & Cath Care Daily and Q BM) Wolf (Active) Catheter Assessment Intact;Draining;To gravity;Secured 04/26/2014 12:00 PM Insertion Site Assessment Open to air 04/26/2014 12:00 PM I/O Urinary Drain Output 75 mL 04/26/2014 1:00 PM Number of days: Nithya Andres M D - 04/26/2014 7:18 AM PSTTSICU Attending I saw and examined the patient. I reviewed the PA's note and I agree with their assessment and plan. Gayatri Owusu PA-C - 04/26/2014 7:18 AM PSTFormatting of this note might be different from the jonathon ivy Trauma / Surgical Critical Care Service - Progress Note Name: MACKENZIE HARTLEY Date: 04/26/2014 Time: 7:18 AM Author: GAYATRI CHRISTENSEN PA-C HPI: 58 y.o. female admitted on 04/23/2014 10:39 AM with Crohn's, COPD, chronic pain, recurr ent UTIs, and known splenic artery thrombosis s/p retroperitoneal hemorrhage on therapeutic heparin infusion. Surgical exploration at referring hospital. She was transferred to [facility] fo r active hemorrhage. Hospital Day #4 ICU Day # 4 Lines: R IJ (OSH) , Left port Abx: none Procedures: 04/21/14: EGD with esophageal dilation 04/23/14: Reported Exlap, splenectomy, packing, vac dressing 04/23/14: Pelvic angiography with glue embolization, IR embolization of Left ileolumbar A 04/24/14: Exp lap: Removal of 3L intraabdominal clot, removal of packs, fascial closure, ski n vac placement 24hr events: Tachycardia improving. BP stable. Adequate UOP. Continues on PS with minimal settings. SBT yesterday AM QUAN 50. Current meds: I have independently reviewed current medication Tylenol PRN Natures tears Vitamin C Dulcolax PRN peridex pepcid BID Dilaudid PRN LR 10 Oxycodone PRN Prednisone 15mg daily Senna BID zinc Labs: EPIC Significant Results reviewed Na 151 CO2 32 BUN/Cr 51/1.1 WBC 27 HCT 24 Plts 70 INR 1.0 Imaging: I have reviewed applicable imaging. Vitals: BP 156/89 | Pulse 110 | Temp 36.6 C (97.9 F) | RR 23 | Ht 1.75 m (5' 8.9") | Wt 88 kg (194 lb 0.1 oz) | SpO2 96% | BMI 28.73 kg/(m^2) Intake/Output Summary (Last 24 hours) at 04/26/14 0719 Last data filed at 04/26/14 0700 Gross per 24 hour Intake 3431.83 ml Output 1565 ml Net 1866.83 ml Physical exam: Constitutional: sedated but wakes to voice. No distress. More interactive. HEENT: grossly intact Neurologic: opens eyes to voice. Moves toes and fingers to command. Cardiovascular: RRR Respiratory: clear and equal throughout, diminished bibasilar bilaterlly Gastrointestinal: soft, up in cardiac chair, wounds not evaluated on rounds. Genitourinary: draining yellow urine Musculoskeletal: warm and well perfused with friable skin and pitting edema Active issues/Plan: Hypoxic Respiratory Insufficiency: patient passing SBT but very weak. reeval daily. Anticip ate if pt fails extubation then discussions about tracheostomy. Encephalopathy, metabolic: minimize centrally acting medications. Splenic artery thrombosis/hypercoag state: heparin infusion with no bolus when ok with vasc ular Left common femoral pseudoaneurysm: vascular consulted Coagulopathy: no signs of active bleeding Crohn's disease: basal prednisone Severe malnutrition: TFs at goal, reduce protein and calories Hyernatremia: increase H2O in DHT, or IV if NPO JULIANE: ATN from shock, resolving. Leukocytotosis: concerning for active infection although not clinically obvious. Blood cult ure sent. ?necrosis of retroperitoneum? Anasarca: compression socks, no active diuresis. CODE STATUS: No CPR, intubation and pressors acceptable Resolved or chronic issues/Plan: Hemorrhagic shock: 04/22 s/p IR embolization of Left ileolumbar A. Hct stable. No indication for transfusion at this time Open abd: fascia closed, skin vac present Paroxsysmal Atrial fibrillation: recently on amiodarone at referring. In NSR in house Acute on chronic anemia: HCT stable no indication for transfusion at this time F:hold per vascular A:tylenol, oxycodone and dilaudid S:none T:likely heparin infusion tonight H:HOB elevated U:H2 jarrod G:SSI B:senna, dulcolax I:CVC for meds and labs, wolf for strict output D:None currently, if febrile panculture and start ABX. Spines:NA Dispo:Cont supportive care. Vascular consultation. Consider heparin later today. Discussed with Dr. Bailey on TSICU rounds. I spent 42 minutes exclusive of time spent with attendings. Erin Christensen PA-C Dept of Surgery SICU/TICU Contact First Call team 01/11 for questions: Team Pager [phone] Angeles Acevedo MD - 04/26/2014 5:24 AM PST [facility] DEPARTMENT OF SURGERY EGS ICU Progress Note Division of Trauma and Critical Care ID: Mackenzie Hartley is a 58 year old female with COPD, Crohn's disease, chronic pain, and 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 while anticoagulated with warfarin transferre d to [facility] from [facility] for management of retroperitoneal bleed. She is s/p ex lap, splenectomy, and packing with lap pads at OSH and POD 2 from reopening of laparotomy, evacuation of 2-3 L of intraabdominal hematoma, closure of open abdomen SUBJECTIVE: Was not extubated yesterday morning due to mental status On minimal vent settings, mental status greatly improved this morning. MEDICATIONS: Current facility-administered medications:acetaminophen (TYLENOL) tablet 650 mg, 650 mg, fe eding tube, Q6H, Gayatri Christensen PA-C, 650 mg at 04/25/142147 artificial tears (hypromellose) (NATURES TEARS) 0.4 % ophthalmic drops 1 drop, 1 drop, Both Eyes, PRN, Willow L Colovos, ACNP ascorbic acid liquid 500 mg, 500 mg, feeding tube, BID, Marge Harris PA-C, 500 mg at 0 04/25/148 bisacodyl (DULCOLAX) suppository 10 mg, 10 mg, rectal, DAILY PRN, Marge Harris PA-C chlorhexidine (PERIDEX) mouthwash 15 mL, 15 mL, oral, Q6H, Gayatri Christensen PA-C, 15 mL a t 04/26/14 0352 famotidine (PEPCID) tablet 20 mg, 20 mg, feeding tube, BID, Marge Harris PA-C, 20 mg a t 04/25/14 2148 heparin 10 unit/mL IV flush syringe 50 Units, 50 Units, intravenous, PRN, Willow Jones Colovos, ACNP, 50 Units at 04/24/14 1840 HYDROmorphone (DILAUDID) injection 0.2-1 mg, 0.2-1 mg, intravenous, Q2H PRN, Gayatri monzon PA-C lactated ringers IV, 10 mL/hr, intravenous, CONTINUOUS, Marge Harris PA-C, Last Rate: 10 mL/hr at 04/26/14 0500, 10 mL/hr at 04/26/14 0500 menthol-zinc oxide (CALAZIME) topical paste, , topical, TID PRN, Willow L Colovos, ACNP nystatin (MYCOSTATIN) cream, , topical, QID PRN, Gayatri Christensen PA-C oxyCODONE (immediate release) (ROXICODONE) tablet 5-15 mg, 5-15 mg, feeding tube, Q4H PRN, Marge Harris PA-C, 5 mg at 04/26/14 0159 predniSONE (DELTASONE) tablet 15 mg, 15 mg, feeding tube, DAILY, Willow Jones Colovos, ACNP, 15 mg at 04/25/14 08 senna (SENOKOT) liquid 8.8 mg, 5 mL, feeding tube, BID, Marge Harris PA-C, 8.8 mg at 0 04/25/142147 zinc sulfate (ORAZINC) tablet 25 mg elemental, 110 mg total salt, feeding tube, DAILY, Chris Harris PA-C, 25 mg elemental at 04/25/14 0812 OBJECTIVE: BP 156/92 | Pulse 105 | Temp 36.6 C (97.9 F) | RR 19 | Ht 1.75 m (5' 8.9") | Wt 88 kg ( 194 lb 0.1 oz) | SpO2 96% | BMI 28.73 kg/(m^2) PHYSICAL EXAM: Gen: intubated, sedated Lungs: mech vent CV: regular, tachycardic to 110s Abdomen: abthera in place. Extremities:Warm and well perfused LABS: Lab Results Component Value Date WBC 27.13 04/25/2014 HB 7.8 04/25/2014 HCT 24.4 04/25/2014 PLT 70 04/25/2014 MCV 92.4 04/25/2014 RDW 55.0 04/25/2014 ASSESSMENT/PLAN: Mackenzie Hartley is a 58 year old female with COPD, Crohn's disease, chronic pain, and 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 Neuro: dilaudid IV PRN and intermittent versed for sedation CV: HD stable Pulm: on mech vent, will try to extubate this AM GI: famotidine for stress ulcer ppx Renal: Creatinine improving Heme/ID: Hct stable, 24. Heme consulted: Dr. Navarro states her IBD is causing her thrombosis. Suggests holding anticoagulation for now. Endo: home dose of 15 mg prednisone daily has been resumed. Wound: skin vac in place, will leave for 5 days. Dispo: continue critical care. Angeles Hannah MD General Surgery Resident, R3 Pager [phone] [facility] & [place] [address] [address] [facility] [phone] ithya Bailey MD - 04/25/2014 6:40 AM PSTTSICU Attending 04/25/14 58 yo woman critically ill with complex surgical and medical history, transferred to [facility] intraabdominal and retroperitoneal hemorrhage 2 days ago. No further active bleeding af ter angio embolization. Had packs removed and abdomen closed yesterday in operating room. H ypoxic respiratory failure related to recent pneumonia and hemorrhagic shock with massive re suscitation. Tolerating spontaneous breathing trial but copious thin secretions and altered mental status precluding extubation. Critical care time exclusive of procedures 32 minutes . I saw and examined the patient. I reviewed the PA's note and I agree with their assessment and plan. Marge Jenkins PA-C - 04/25/2014 6:40 AM PST . Trauma / Surgical Critical Care Service - Progress Note Name: MACKENZIE HARTLEY Date: 04/25/2014 Time: 6:40 AM Author: GAYATRI CHRISTENSEN PA-C HPI: 58 y.o. female admitted on 04/23/2014 10:39 AM with Crohn's, COPD, chronic pain, recur rent UTIs, and known splenic artery thrombosis s/p retroperitoneal hemorrhage on therapeutic heparin infusion. Surgical exploration at referring hospital. She was transferred to [facility] f or IR embolization- s/p embolization of left iliolumbar artery Hospital Day #2 ICU Day # 2 Lines: R IJ (OSH) , Left port Abx: none Procedures: 04/21/14: EGD with esophageal dilation 04/23/14: Reported Exlap, splenectomy, packing, vac dressing 04/23/14: Pelvic angiography with glue embolization, IR embolization of Left ileolumbar A 04/24/14: Exp lap: Removal of 3L intraabdominal clot, removal of packs, fascial closure, s kin vac placement 24hr events: More responsive today, still not following commands. Hemodynamically stable with persisten t tachycardia. Current meds: I have independently reviewed current medication Vit C Chlorhexidine Famotidine Hydromorphone Oxycodone Prednisone zinc Labs: EPIC Significant Results reviewed WBC 25 HCT 24 Plts 72 INR 2.0 Na 153 K 3.6 Mg 1.9 Phos 4.5 BUN/Cr 41/1.1 Imaging: I have reviewed applicable imaging. Vitals: BP 134/69 | Pulse 112 | Temp 36.8 C (98.3 F) | RR 15 | Ht 1.75 m (5' 8.9") | Wt 88 kg (194 lb 0.1 oz) | SpO2 95% | BMI 28.73 kg/(m^2) Intake/Output Summary (Last 24 hours) at 04/25/14 0640 Last data filed at 04/25/14 0600 Gross per 24 hour Intake 2686 ml Output 1162 ml Net 1524 ml Physical exam: Constitutional: intubated, NAD HEENT PEERL Neurologic: eyes opening spontaneously, moving extremities spontaneously. Not following co mmands, not tracking Cardiovascular: Tachycardia, Regular rhythm Respiratory: CTA Gastrointestinal: Soft, compressible, skin vac present. Genitourinary: bilateral groin lines removed, dressing mild sat on Left, dry on right no in duration, wolf in draining clear urine Musculoskeletal: Diffuse anasarca. RLE- dusky appearance resolved, increased warmth. Dopp ler DP, PT signals Active issues/Plan: Hypoxic Respiratory Insufficiency: temporarily on PS, transitioned to SIMV overnight, tole rated Peep wean to 5 Wean to PS today. Mental status precludes extubation Encephalopathy, metabolic -improving with decreased narcotics. Continue to minimize central ly acting medication -stopped versed- page if agitation Splenic artery thrombosis/hypercoag state: With possible spontaneous retroperitoneal bleed on therapeutic anticoagulation vs supratherapeutic bleed. -hematology to discuss plan today Coagulopathy: INR rise to 2.0 today, Hct stable, hemodynamically stable. Discussed with marilia mera and will give 2u FFP for risk of bleeding with large retroperitoneal surface. -repeat coag after Crohn's disease: transitioned to home enteral steroids Severe malnutrition: on Trophic TF, will increase to goal today Impact @ 45 ml + BID prosou rce Hyernatremia: Worsening, rise from 151 to 153. Will increase free water via FT today; dir uil X 1 - renal at 1800 JULIANE: r/t hemorrhagic shock. Cr improving 1.17 from 1.2, making adequate urine Leukocytotosis: Stable at 26- suspect inflammation from hemorrhagic shock and packs in abd. No indication for abx at this time Anasarca: SLIV, diuril X 1 CODE STATUS: No CPR, intubation and pressors acceptable Resolved or chronic issues/Plan: Hemorrhagic shock: 04/22 s/p IR embolization of Left ileolumbar A. Hct stable. No indicatio n for transfusion at this time Open abd: fascia closed, skin vac present Paroxsysmal Atrial fibrillation: recently on amiodarone at referring. In NSR in house Acute on chronic anemia: HCT stable no indication for transfusion at this time F:TF A: prn dilaudid, oxy S: none T:will discuss with hematology H: >30 U: famotidine G:well controlled B: present I: RIJ- possibly pull today, port, ETT, DHT, wolf D: none Spines: N/A Dispo: remain in ICU Discussed with Dr. Bailey on TSICU rounds. Marge Harris PA-C Dept of Surgery SICU/TICU Contact First Call team 01/11 for questions: Team Pager [phone] Angeles Acevedo MD - 04/25/2014 4:39 AM PST [facility] DEPARTMENT OF SURGERY EGS ICU Progress Note Division of Trauma and Critical Care ID: Mackenzie Hartley is a 58 year old female with COPD, Crohn's disease, chronic pain, and 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 while anticoagulated with warfarin transferre d to [facility] from [facility] for management of retroperitoneal bleed. She is s/p ex lap, splenectomy, and packing with lap pads at OSH and POD 1 from reopening of laparotomy, evacuation of 2-3 L of intraabdominal hematoma, closure of open abdomen SUBJECTIVE: Brought to OR today for reopening of laparotomy, evacuation of 2-3 L of intraabdominal laura gabriela, closure of open abdomen 5 lap pads removed from OSH. Traci used to control bleeding Continues on SIMV, 01/13. Will attempt SBT this AM, on minimal vent settings. MEDICATIONS: Current facility-administered medications:ascorbic acid liquid 500 mg, 500 mg, feeding tube , BID, Marge Harris PA-C, 500 mg at 04/24/14 1500 chlorhexidine (PERIDEX) mouthwash 15 mL, 15 mL, oral, Q6H, Gayatri Christensen PA-C, 15 mL a t 04/24/14 1700 famotidine (PEPCID) tablet 20 mg, 20 mg, feeding tube, BID, Marge Harris PA-C heparin 10 unit/mL IV flush syringe 50 Units, 50 Units, intravenous, PRN, Willow L Colovos, ACNP, 50 Units at 04/23/144 HYDROmorphone (DILAUDID) injection 0.5-2 mg, 0.5-2 mg, intravenous, Q2H PRN, Marge baires PA-C lactated ringers IV, 50 mL/hr, intravenous, CONTINUOUS, Marge Harris PA-C, Last Rate: 50 mL/hr at 04/24/14 1700, 50 mL/hr at 04/24/14 1700 midazolam (PF) (VERSED) injection 0.5-2 mg, 0.5-2 mg, intravenous, Q6H PRN, Marge cunningham PA-C nystatin (MYCOSTATIN) cream, , topical, QID PRN, Gayatri Christensen PA-C oxyCODONE (immediate release) (ROXICODONE) tablet 5-15 mg, 5-15 mg, feeding tube, Q4H PRN, Marge Harris PA-C predniSONE (DELTASONE) tablet 15 mg, 15 mg, feeding tube, DAILY, Willow L Colovos, ACNP, 15 mg at 04/24/14 1730 white petrolatum-mineral oil (LACRILUBE) 83-15 % ophthalmic ointment, , Both Eyes, Q6H, Radha Christensen PA-C zinc sulfate (ORAZINC) tablet 25 mg elemental, 110 mg total salt, feeding tube, DAILY, Chris Harris, POLINA, 25 mg elemental at 04/24/14 1500 OBJECTIVE: BP 129/70 | Pulse 122 | Temp 36.6 C (97.9 F) | RR 20 | Ht 1.75 m (5' 8.9") | Wt 88 kg ( 194 lb 0.1 oz) | SpO2 97% | BMI 28.73 kg/(m^2) PHYSICAL EXAM: Gen: intubated, sedated Lungs: mech vent CV: regular, tachycardic to 120s Abdomen: abthera in place. Extremities:Warm and well perfused Ventilator: Volume AC FiO2 40 LABS: Lab Results Component Value Date WBC 22.47 04/24/2014 HB 9.1 04/24/2014 HCT 26.9 04/24/2014 PLT 82 04/24/2014 MCV 85.9 04/24/2014 RDW 49.1 04/24/2014 ASSESSMENT/PLAN: Mackenzie Hartley is a 58 year old female with COPD, Crohn's disease, chronic pain, and 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 Neuro: dilaudid IV PRN and intermittent versed for sedation CV: HD stable Pulm: on mech vent, will try to extubate this AM GI: famotidine for stress ulcer ppx Renal: Creatinine improving Heme/ID: Hct drifting downward. 26.9-->25.5-->24.1 over the course of the day yesterday. BP with systolic in 130s, remains tachy in 110s. Endo: home dose of 15 mg prednisone daily has been resumed. Wound: skin vac in place, will leave for 5 days. Dispo: continue critical care. Angeles Hannah MD General Surgery Resident, R3 Pager [phone] [facility] & [place] [phone] Rich Pappas MD - 04/24/2014 9:21 AM PSTBRIEF OPERATIVE NOTE Procedure Date: 04/24/2014 Author: RICH REDDING MD Attending Physician: Bowen Assistants: Miladis R5, Amaris R2, Whitney MS3, Juliette MS3 Preoperative Diagnosis: retroperitoneal hemorrhage, open abdomen Postoperative Diagnosis: same Procedure Performed: 1. Reopening of laparotomy 2. Evacuation of intraabdominal hematoma 3. Lysis of adhesions 4. Control of retroperitoneal hemorrhage 5. Closure of laparotomy 6. Skin VAC placement Findings: 2-3L of old hematoma in the retroperitoneal space, packing and traci used to con trol bleeding, 5 laparotomy pads removed at the beginning of the case, xray confirmed no ret ained foreign bodies Complications: none apparent Fluids: EBL: 100, UOP: 100cc and crystalloid: 1000cc and 500cc albumin Specimens: None Drains: Skin vac is new Disposition: OR direct to ICU Wolf: Will remain for until not needed Diet: ok to give TF if off pressor DVT prophylaxis: bleeding risk fornow Antibiotic Plan: None Glycemic control: PRN Dressing care: Skin vac for 5 days Activity restrictions: None Wean to extubate Initial surgical contact: Miladis at pager [phone] Nithya Andres MD - 04/24/2014 5:25 AM PSTTSICU Attending 04/24/14 I saw and examined the patient. I reviewed the PA's note and I agree with their assessment and plan. Marge Jenkins PA-C - 04/24/2014 5:25 AM PST . Trauma / Surgical Critical Care Service - Progress Note Name: MACKENZIE HARTLEY Date: 04/24/2014 Time: 5:25 AM Author: GAYATRI CHRISTENSEN PA-C HPI: 58 y.o. female admitted on 04/23/2014 10:39 AM with Crohn's, COPD, chronic pain, recur rent UTIs, and known splenic artery thrombosis s/p retroperitoneal hemorrhage on therapeutic heparin infusion. Surgical exploration at referring hospital. IR embolization at [facility]. Hospital Day #1 ICU Day #2 Procedures: 04/21/14: EGD with esophageal dilation 04/23/14: Reported Exlap, splenectomy, packing, vac dressing 04/23/14: Pelvic angiography with glue embolization Access: RIJ introducer with handsfree, left chest port accessed, RUE power PICC, R femoral arterial line ABX: none 24hr events: Transferred from referring with abdominal packing and unknown source of bleeding. CTA with active bleeding from left psoas. IR embolization. BP stable off pressors. Persistent tachycardia. Adequate UOP. Current meds: I have independently reviewed current medication peridex pepcid BID Fentanyl infusion Heparin flushes hydrocort 50mg BID LR 100 Versed PRN Nystatin lacrilube Labs: EPIC Significant Results reviewed 7.43/45/70/30/5.8/95% Na 150 Cl 115 K 3.8 Mg 1.9 Phos 5.9 BUN/Cr 38/1.2 Lactate 2.3 Imaging: I have reviewed applicable imaging. Vitals: BP 117/70 | Pulse 123 | Temp 37.6 C (99.7 F) | RR 21 | Ht 1.75 m (5' 8.9") | Wt 88 kg (194 lb 0.1 oz) | SpO2 96% | BMI 28.73 kg/(m^2) Intake/Output Summary (Last 24 hours) at 04/24/14 0525 Last data filed at 04/24/14 0500 Gross per 24 hour Intake 3591 ml Output 2153 ml -vac 1.8L -UOP 40ml/hr Net 1438 ml Physical exam: Constitutional: intubated/somnolent, NAD HEENT Eyes rolled back in head, PEERL Neurologic: somnolent, would not respond to voice or pain Cardiovascular: RRR Respiratory: Course breath sounds, otherwise clear, no labored breathing Vol AC 460 18 8 0.4 96% Gastrointestinal: Distended, mildly compressible, abthera in place with sanguanous fluid Genitourinary: R groin femoral line, left groin dressing dry intact. wolf in draining amb er urine Musculoskeletal: RLE-cool, intermittent PT signal, no DP signal, cool, mild dusky. LLE , D P, PT signals Active issues: Hypoxic respiratory failure: On volume AC,will wean to PS post operatively as tolerated. Hemorrhagic shock: 04/22 s/p IR embolization of Left ileolumbar A. MBT at OSH- coagulopathy reversed. Hct stable, hemodynamically stable. No indication for tx at this time. Is type an d crossed Open abd: returning to OR for washout, removal of packs and source control. Possible abd f ascial closure today Metabolic encephalopathy: Will decrease versed, and change to oxycodone and prn dilaudid i n attempts to wake Paroxsysmal Atrial fibrillation: recently on amiodarone at referring. If recurrent episode of clinically significant Afib then will restart amiodarone infusion Splenic artery thrombosis/hypercoag state: With possible spontaneous retroperitoneal bleed on therapeutic anticoagulation vs supratherapeutic bleed. -will consult hematology to assist with anticoagulation timing and plans Crohn's disease: On hydrocortisone 50 BID, will transition to enteral post operatively Severe malnutrition: intermittently on TFs during the last 18 days of hospitalizations. Joss l start TF post operatively JULIANE: r/t hemorrhagic shock. Cr stable at 1.2, making adequate urine Acute on chronic anemia: HCT stable no indication for transfusion at this time Leukocytotosis: Stable at 26- suspect inflammation from hemorrhagic shock and packs in abd . No indication for abx at this time Anasarca: Will SLIV, holding on active diuresis at this time d/t mild JULIANE, expect diuril o r mecalozine in next 24 hours CODE STATUS: No CPR, intubation and pressors acceptable Resolved or chronic issues: Cardiomyopathy: most recent TTE 04/22 with normal EF PNA: completed 10 days of ABX Esophageal stricture: EGD with dilation 04/21/14 F: TF A: fentanyl infusion- transition to dilaudid PRN S:versed T: on hold-hematology consult H: > 30 U: famotidine G: well controlled B: dulcolax, senna I: femoral groin line- removal, cordis- removal, IJ, port, ETT, NGT, abtgopal jeronimoey D: none Dispo: remains critically ill. Discussed with Dr. Bailey on TSICU rounds. I spent 32 minutes of critical care independent of Dr Lynn Harris PA-C Dept of Surgery SICU/TICU Contact First Call team 01/11 for questions: Team Pager [phone] Angeles Acevedo MD - 04/24/2014 2:04 AM PST [facility] DEPARTMENT OF SURGERY EGS Consult Progress Note Division of Trauma and Critical Care ID: Mackenzie Hartley is a 58 year old female with COPD, Crohn's disease, chronic pain, and 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 while anticoagulated with warfarin transferre d to [facility] from [facility] for management of retroperitoneal bleed. She is s/p ex lap, splenectomy, and packing with lap pads. SUBJECTIVE: Post transfusion Hct 41. Recheck at 1800 was 32 and it has remained stable since then. Plat elets 84 MEDICATIONS: Current facility-administered medications:chlorhexidine (PERIDEX) mouthwash 15 mL, 15 mL, o ral, Q6H, Gayatri Christensen PA-C, 15 mL at 04/23/142123 famotidine in NS (PEPCID) IV 20 mg, 20 mg, intravenous, Q12H (Scheduled), Gayatri Christensen PA-C, Last Rate: 200 mL/hr at 04/23/142123, 20 mg at 04/23/142123 fentaNYL citrate (PF) (SUBLIMAZE) injection 25-100 mcg, 25-100 mcg, intravenous, Q1H PRN, Hilario Christensen PA-C fentaNYL citrate (PF) (SUBLIMAZE) injection, , , , fentaNYL citrate in NS (PF) (SUBLIMAZE) IV infusion, 25-250 mcg/hr, intravenous, CONTINUOUS , Gayatri Christensen PA-C, Last Rate: 10 mL/hr at 04/23/142199, 100 mcg/hr at 04/23/142199 heparin 10 unit/mL IV flush syringe 50 Units, 50 Units, intravenous, PRN, Willow L Colovos, ACNP, 50 Units at 04/23/142123 hydrocortisone sodium succinate (PF) (SOLU-CORTEF) injection 50 mg, 50 mg, intravenous, Q12 H (Scheduled), Gayatri Christensen PA-C, 50 mg at 04/23/142124 lactated ringers IV, 100 mL/hr, intravenous, CONTINUOUS, Gayatri Christensen PA-C, Last Rate : 100 mL/hr at 04/23/141999, 100 mL/hr at 04/23/141999 midazolam (PF) (VERSED) injection 0.5-2 mg, 0.5-2 mg, intravenous, Q4H PRN, Jf Wiseman MD, 2 mg at 04/23/142123 nystatin (MYCOSTATIN) cream, , topical, QID PRN, Gayatri Christensen PA-C white petrolatum-mineral oil (LACRILUBE) 83-15 % ophthalmic ointment, , Both Eyes, Q6H, Radha Christensen PA-C OBJECTIVE: BP 101/62 | Pulse 121 | Temp 37 C (98.6 F) | RR 18 | Ht 1.75 m (5' 8.9") | Wt 88 kg (19 4 lb 0.1 oz) | SpO2 95% | BMI 28.73 kg/(m^2) PHYSICAL EXAM: Gen: intubated, sedated Lungs: mech vent CV: regular, tachycardic to 120s Abdomen: abthera in place. 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 She is s/p ex lap, splenectomy, and packing with lap pads at OSH. Spoke with last night over the phone regarding surgical consent. Consent signed and PARQ held for serial abdominal washouts and attempt at closure, planned for today. is [place], Neuro: fentanyl gtt with intermittent versed CV: Hct stable. Pulm: on mech vent GI: famotidine for stress ulcer ppx Renal: FENa calculated -- pre renal, as expected. UOP OK -- responded well to 500 ml bolus at about midnight. 1 L given total overnight. Received 1 L of fluid ON with good response. L actate remains at 2.3, was 2.4 earlier in the evening. Heme/ID: Hct stable at 32 for last two checks. Continue serial INRs and Hcts. Endo: on 15 mg of prednisone daily. Currently on steroids -- hydrocortisone 50 mg IV q 12 h ours. Dispo: continue critical care. Will return to ICU post op. Angeles Hannah MD General Surgery Resident, R3 Pager [phone] [facility] [place] [address] [place] [facility] [place] [id number] Rudy Parker M D - 04/23/2014 5:07 PM PSTBRIEF INTERVENTIONAL RADIOLOGY PROCEDURE NOTE DATE: 04/23/2014 5:07 PM PROCEDURE: Pelvic angiography with glue embolization PRE-PROCEDURE DIAGNOSIS: Retroperitoneal hematoma POST-PROCEDURE DIAGNOSIS: Same IR STAFF: Lenny IR FELLOW: Ciera ACCESS: L VEGETABLE CANNER MEDICATIONS: Fentanyl IV 150 mcg Midazolam IV 2 Other Meds: Ancef 1 Gram IVPB COMPLICATION(S): None immediate FINDINGS: 1. Active extravasation from a small branch off the left iliolumbar artery, successfully e mbolized with cyanoacrylate glue. 2. No evidence of continued bleeding on completion angiography. Please see fully dictated report for further details. documented in this encounter Plan of Treatment + +---------+--------+ + + | Name | Type | Priori | Associated Diagnoses | Date/Time | | | | ty | | | + +---------+--------+ + + | X-RAY ABD LTD | Imaging | Routin | | 04/29/2014 7:13 PM | | FEEDING TUBE EVAL | | e | | PST | + +---------+--------+ + + documented as of this encounter Procedures + +--------+ + + + | Procedure Name | Priori | Date/Time | Associated Diagnosis | Comments | | | ty | | | | + +--------+ + + + | TRANSFUSE FRESH | Routin | 02/10/2016 | | | | FROZEN PLASMA | e | 8:56 PM | | | | | | PDT | | | + +--------+ + + + | TRANSFUSE FRESH | Routin | 02/10/2016 | | | | FROZEN PLASMA | e | 8:56 PM | | | | | | PDT | | | + +--------+ + + + | PROCEDURE NOTE | Routin | 05/15/2015 | | Results for this | | | e | 4:12 PM | | procedure are in the | | | | PST | | results section. | + +--------+ + + + | INR | Urgent | 05/13/2014 | | Results for this | | | | 9:02 AM | | procedure are in the | | | | PST | | results section. | + +--------+ + + + | CAPILLARY BLOOD | Routin | 05/13/2014 | | Results for this | | GLUCOSE (NO CHG), | e | 6:24 AM | | procedure are in the | | POC | | PST | | results section. | + +--------+ + + + | CBC (HEMOGRAM) ONLY | Routin | 05/13/2014 | | Results for this | | | e | 4:18 AM | | procedure are in the | | | | PST | | results section. | + +--------+ + + + | RENAL FUNCTION SET | Urgent | 05/13/2014 | | Results for this | | (NA,K,CL,CO2,BUN,CRE | | 4:18 AM | | procedure are in the | | AT,GLUC,CA,PHOS,ALB | | PST | | results section. | | ) | | | | | + +--------+ + + + | CBC ONLY | Routin | 05/13/2014 | | Results for this | | | e | 4:18 AM | | procedure are in the | | | | PST | | results section. | + +--------+ + + + | MAGNESIUM, PLASMA | Urgent | 05/13/2014 | | Results for this | | | | 4:18 AM | | procedure are in the | | | | PST | | results section. | + +--------+ + + + | CAPILLARY BLOOD | Routin | 05/13/2014 | | Results for this | | GLUCOSE (NO CHG), | e | 12:07 AM | | procedure are in the | | POC | | PST | | results section. | + +--------+ + + + | CAPILLARY BLOOD | Routin | 05/12/2014 | | Results for this | | GLUCOSE (NO CHG), | e | 6:17 AM | | procedure are in the | | POC | | PST | | results section. | + +--------+ + + + | CBC (HEMOGRAM) ONLY | Routin | 05/12/2014 | | Results for this | | | e | 1:07 AM | | procedure are in the | | | | PST | | results section. | + +--------+ + + + | INR | Urgent | 05/12/2014 | | Results for this | | | | 1:07 AM | | procedure are in the | | | | PST | | results section. | + +--------+ + + + | RENAL FUNCTION SET | Urgent | 05/12/2014 | | Results for this | | (NA,K,CL,CO2,BUN,CRE | | 1:07 AM | | procedure are in the | | AT,GLUC,CA,PHOS,ALB | | PST | | results section. | | ) | | | | | + +--------+ + + + | CBC ONLY | Routin | 05/12/2014 | | Results for this | | | e | 1:07 AM | | procedure are in the | | | | PST | | results section. | + +--------+ + + + | MAGNESIUM, PLASMA | Urgent | 05/12/2014 | | Results for this | | | | 1:07 AM | | procedure are in the | | | | PST | | results section. | + +--------+ + + + | CAPILLARY BLOOD | Routin | 05/11/2014 | | Results for this | | GLUCOSE (NO CHG), | e | 11:47 PM | | procedure are in the | | POC | | PST | | results section. | + +--------+ + + + | CAPILLARY BLOOD | Routin | 05/11/2014 | | Results for this | | GLUCOSE (NO CHG), | e | 6:44 AM | | procedure are in the | | POC | | PST | | results section. | + +--------+ + + + | CBC (HEMOGRAM) ONLY | Urgent | 05/11/2014 | | Results for this | | | | 3:28 AM | | procedure are in the | | | | PST | | results section. | + +--------+ + + + | INR | Urgent | 05/11/2014 | | Results for this | | | | 3:28 AM | | procedure are in the | | | | PST | | results section. | + +--------+ + + + | RENAL FUNCTION SET | Urgent | 05/11/2014 | | Results for this | | (NA,K,CL,CO2,BUN,CRE | | 3:28 AM | | procedure are in the | | AT,GLUC,CA,PHOS,ALB | | PST | | results section. | | ) | | | | | + +--------+ + + + | CBC ONLY | Urgent | 05/11/2014 | | Results for this | | | | 3:28 AM | | procedure are in the | | | | PST | | results section. | + +--------+ + + + | MAGNESIUM, PLASMA | Urgent | 05/11/2014 | | Results for this | | | | 3:28 AM | | procedure are in the | | | | PST | | results section. | + +--------+ + + + | CAPILLARY BLOOD | Routin | 05/10/2014 | | Results for this | | GLUCOSE (NO CHG), | e | 11:52 PM | | procedure are in the | | POC | | PST | | results section. | + +--------+ + + + | CAPILLARY BLOOD | Routin | 05/10/2014 | | Results for this | | GLUCOSE (NO CHG), | e | 6:12 PM | | procedure are in the | | POC | | PST | | results section. | + +--------+ + + + | VASC LAB PORTABLE | Routin | 05/10/2014 | | Results for this | | VENOUS DUPLEX LOWER | e | 2:05 PM | | procedure are in the | | EXTREMITY BILATERAL | | PST | | results section. | | COMPLETE | | | | | + +--------+ + + + | CAPILLARY BLOOD | Routin | 05/10/2014 | | Results for this | | GLUCOSE (NO CHG), | e | 12:14 PM | | procedure are in the | | POC | | PST | | results section. | + +--------+ + + + | CAPILLARY BLOOD | Routin | 05/10/2014 | | Results for this | | GLUCOSE (NO CHG), | e | 6:13 AM | | procedure are in the | | POC | | PST | | results section. | + +--------+ + + + | CBC (HEMOGRAM) ONLY | Urgent | 05/10/2014 | | Results for this | | | | 3:39 AM | | procedure are in the | | | | PST | | results section. | + +--------+ + + + | INR | Urgent | 05/10/2014 | | Results for this | | | | 3:39 AM | | procedure are in the | | | | PST | | results section. | + +--------+ + + + | RENAL FUNCTION SET | Urgent | 05/10/2014 | | Results for this | | (NA,K,CL,CO2,BUN,CRE | | 3:39 AM | | procedure are in the | | AT,GLUC,CA,PHOS,ALB | | PST | | results section. | | ) | | | | | + +--------+ + + + | CBC ONLY | Urgent | 05/10/2014 | | Results for this | | | | 3:39 AM | | procedure are in the | | | | PST | | results section. | + +--------+ + + + | MAGNESIUM, PLASMA | Urgent | 05/10/2014 | | Results for this | | | | 3:39 AM | | procedure are in the | | | | PST | | results section. | + +--------+ + + + | CAPILLARY BLOOD | Routin | 05/10/2014 | | Results for this | | GLUCOSE (NO CHG), | e | 12:02 AM | | procedure are in the | | POC | | PST | | results section. | + +--------+ + + + | CAPILLARY BLOOD | Routin | 05/09/2014 | | Results for this | | GLUCOSE (NO CHG), | e | 3:22 PM | | procedure are in the | | POC | | PST | | results section. | + +--------+ + + + | CAPILLARY BLOOD | Routin | 05/09/2014 | | Results for this | | GLUCOSE (NO CHG), | e | 6:10 AM | | procedure are in the | | POC | | PST | | results section. | + +--------+ + + + | CBC (HEMOGRAM) ONLY | Urgent | 05/09/2014 | | Results for this | | | | 3:08 AM | | procedure are in the | | | | PST | | results section. | + +--------+ + + + | INR | Urgent | 05/09/2014 | | Results for this | | | | 3:08 AM | | procedure are in the | | | | PST | | results section. | + +--------+ + + + | RENAL FUNCTION SET | Urgent | 05/09/2014 | | Results for this | | (NA,K,CL,CO2,BUN,CRE | | 3:08 AM | | procedure are in the | | AT,GLUC,CA,PHOS,ALB | | PST | | results section. | | ) | | | | | + +--------+ + + + | CBC ONLY | Urgent | 05/09/2014 | | Results for this | | | | 3:08 AM | | procedure are in the | | | | PST | | results section. | + +--------+ + + + | MAGNESIUM, PLASMA | Urgent | 05/09/2014 | | Results for this | | | | 3:08 AM | | procedure are in the | | | | PST | | results section. | + +--------+ + + + | CAPILLARY BLOOD | Routin | 05/08/2014 | | Results for this | | GLUCOSE (NO CHG), | e | 11:54 PM | | procedure are in the | | POC | | PST | | results section. | + +--------+ + + + | CAPILLARY BLOOD | Routin | 05/08/2014 | | Results for this | | GLUCOSE (NO CHG), | e | 6:21 AM | | procedure are in the | | POC | | PST | | results section. | + +--------+ + + + | CBC (HEMOGRAM) ONLY | Routin | 05/08/2014 | | Results for this | | | e | 3:47 AM | | procedure are in the | | | | PST | | results section. | + +--------+ + + + | INR | Urgent | 05/08/2014 | | Results for this | | | | 3:47 AM | | procedure are in the | | | | PST | | results section. | + +--------+ + + + | RENAL FUNCTION SET | Urgent | 05/08/2014 | | Results for this | | (NA,K,CL,CO2,BUN,CRE | | 3:47 AM | | procedure are in the | | AT,GLUC,CA,PHOS,ALB | | PST | | results section. | | ) | | | | | + +--------+ + + + | CBC ONLY | Routin | 05/08/2014 | | Results for this | | | e | 3:47 AM | | procedure are in the | | | | PST | | results section. | + +--------+ + + + | MAGNESIUM, PLASMA | Urgent | 05/08/2014 | | Results for this | | | | 3:47 AM | | procedure are in the | | | | PST | | results section. | + +--------+ + + + | CAPILLARY BLOOD | Routin | 05/08/2014 | | Results for this | | GLUCOSE (NO CHG), | e | 12:31 AM | | procedure are in the | | POC | | PST | | results section. | + +--------+ + + + | CAPILLARY BLOOD | Routin | 05/07/2014 | | Results for this | | GLUCOSE (NO CHG), | e | 6:08 AM | | procedure are in the | | POC | | PST | | results section. | + +--------+ + + + | CBC (HEMOGRAM) ONLY | Routin | 05/07/2014 | | Results for this | | | e | 3:15 AM | | procedure are in the | | | | PST | | results section. | + +--------+ + + + | INR | Urgent | 05/07/2014 | | Results for this | | | | 3:15 AM | | procedure are in the | | | | PST | | results section. | + +--------+ + + + | RENAL FUNCTION SET | Urgent | 05/07/2014 | | Results for this | | (NA,K,CL,CO2,BUN,CRE | | 3:15 AM | | procedure are in the | | AT,GLUC,CA,PHOS,ALB | | PST | | results section. | | ) | | | | | + +--------+ + + + | CBC ONLY | Routin | 05/07/2014 | | Results for this | | | e | 3:15 AM | | procedure are in the | | | | PST | | results section. | + +--------+ + + + | MAGNESIUM, PLASMA | Urgent | 05/07/2014 | | Results for this | | | | 3:15 AM | | procedure are in the | | | | PST | | results section. | + +--------+ + + + | CAPILLARY BLOOD | Routin | 05/07/2014 | | Results for this | | GLUCOSE (NO CHG), | e | 12:17 AM | | procedure are in the | | POC | | PST | | results section. | + +--------+ + + + | C. DIFFICILE TOXIN, | Routin | 05/06/2014 | | Results for this | | W/REFLEX | e | 5:58 PM | | procedure are in the | | CONFIRMATION IF | | PST | | results section. | | INDETERMINATE | | | | | | RESULTS | | | | | + +--------+ + + + | CAPILLARY BLOOD | Routin | 05/06/2014 | | Results for this | | GLUCOSE (NO CHG), | e | 5:49 PM | | procedure are in the | | POC | | PST | | results section. | + +--------+ + + + | CAPILLARY BLOOD | Routin | 05/06/2014 | | Results for this | | GLUCOSE (NO CHG), | e | 11:31 AM | | procedure are in the | | POC | | PST | | results section. | + +--------+ + + + | CBC (HEMOGRAM) ONLY | Routin | 05/06/2014 | | Results for this | | | e | 3:14 AM | | procedure are in the | | | | PST | | results section. | + +--------+ + + + | INR | Urgent | 05/06/2014 | | Results for this | | | | 3:14 AM | | procedure are in the | | | | PST | | results section. | + +--------+ + + + | RENAL FUNCTION SET | Urgent | 05/06/2014 | | Results for this | | (NA,K,CL,CO2,BUN,CRE | | 3:14 AM | | procedure are in the | | AT,GLUC,CA,PHOS,ALB | | PST | | results section. | | ) | | | | | + +--------+ + + + | CBC ONLY | Routin | 05/06/2014 | | Results for this | | | e | 3:14 AM | | procedure are in the | | | | PST | | results section. | + +--------+ + + + | MAGNESIUM, PLASMA | Urgent | 05/06/2014 | | Results for this | | | | 3:14 AM | | procedure are in the | | | | PST | | results section. | + +--------+ + + + | CBC (HEMOGRAM) ONLY | Urgent | 05/05/2014 | | Results for this | | | | 3:48 AM | | procedure are in the | | | | PST | | results section. | + +--------+ + + + | CBC (HEMOGRAM) ONLY | Routin | 05/05/2014 | | Results for this | | | e | 3:48 AM | | procedure are in the | | | | PST | | results section. | + +--------+ + + + | RENAL FUNCTION SET | Urgent | 05/05/2014 | | Results for this | | (NA,K,CL,CO2,BUN,CRE | | 3:48 AM | | procedure are in the | | AT,GLUC,CA,PHOS,ALB | | PST | | results section. | | ) | | | | | + +--------+ + + + | CBC ONLY | Urgent | 05/05/2014 | | Results for this | | | | 3:48 AM | | procedure are in the | | | | PST | | results section. | + +--------+ + + + | CBC ONLY | Routin | 05/05/2014 | | Results for this | | | e | 3:48 AM | | procedure are in the | | | | PST | | results section. | + +--------+ + + + | MAGNESIUM, PLASMA | Urgent | 05/05/2014 | | Results for this | | | | 3:48 AM | | procedure are in the | | | | PST | | results section. | + +--------+ + + + | INR | Urgent | 05/05/2014 | | Results for this | | | | 12:46 AM | | procedure are in the | | | | PST | | results section. | + +--------+ + + + | WELCOME TO ARTUR | Routin | 05/04/2014 | | Results for this | | (VIDEO) | e | 2:18 PM | | procedure are in the | | | | PST | | results section. | + +--------+ + + + | C. DIFFICILE TOXIN, | Routin | 05/04/2014 | | Results for this | | W/REFLEX | e | 12:50 PM | | procedure are in the | | CONFIRMATION IF | | PST | | results section. | | INDETERMINATE | | | | | | RESULTS | | | | | + +--------+ + + + | BLOOD GASES, VENOUS | Urgent | 05/04/2014 | | Results for this | | - LAB | | 8:10 AM | | procedure are in the | | | | PST | | results section. | + +--------+ + + + | X-RAY CHEST 1 VIEW | Routin | 05/04/2014 | | Results for this | | | e | 8:06 AM | | procedure are in the | | | | PST | | results section. | + +--------+ + + + | CBC (HEMOGRAM) ONLY | Routin | 05/04/2014 | | Results for this | | | e | 3:30 AM | | procedure are in the | | | | PST | | results section. | + +--------+ + + + | INR | Urgent | 05/04/2014 | | Results for this | | | | 3:30 AM | | procedure are in the | | | | PST | | results section. | + +--------+ + + + | RENAL FUNCTION SET | Urgent | 05/04/2014 | | Results for this | | (NA,K,CL,CO2,BUN,CRE | | 3:30 AM | | procedure are in the | | AT,GLUC,CA,PHOS,ALB | | PST | | results section. | | ) | | | | | + +--------+ + + + | CBC ONLY | Routin | 05/04/2014 | | Results for this | | | e | 3:30 AM | | procedure are in the | | | | PST | | results section. | + +--------+ + + + | MAGNESIUM, PLASMA | Urgent | 05/04/2014 | | Results for this | | | | 3:30 AM | | procedure are in the | | | | PST | | results section. | + +--------+ + + + | BLOOD GASES, | Routin | 05/03/2014 | | Results for this | | ARTERIAL - LAB | e | 9:03 PM | | procedure are in the | | | | PST | | results section. | + +--------+ + + + | UA, DIPSTICK ONLY | Routin | 05/03/2014 | | Results for this | | | e | 8:47 PM | | procedure are in the | | | | PST | | results section. | + +--------+ + + + | URINE, MICROSCOPIC | Routin | 05/03/2014 | | Results for this | | EXAM | e | 8:47 PM | | procedure are in the | | | | PST | | results section. | + +--------+ + + + | URINE SCREEN FOR | Routin | 05/03/2014 | | Results for this | | CULTURE | e | 8:47 PM | | procedure are in the | | | | PST | | results section. | + +--------+ + + + | CAPILLARY BLOOD | Routin | 05/03/2014 | | Results for this | | GLUCOSE (NO CHG), | e | 6:53 PM | | procedure are in the | | POC | | PST | | results section. | + +--------+ + + + | VASC LAB PORTABLE | Routin | 05/03/2014 | | Results for this | | VENOUS DUPLEX LOWER | e | 11:24 AM | | procedure are in the | | EXTREMITY BILATERAL | | PST | | results section. | | COMPLETE | | | | | + +--------+ + + + | CBC (HEMOGRAM) ONLY | Routin | 05/03/2014 | | Results for this | | | e | 3:59 AM | | procedure are in the | | | | PST | | results section. | + +--------+ + + + | INR | Urgent | 05/03/2014 | | Results for this | | | | 3:59 AM | | procedure are in the | | | | PST | | results section. | + +--------+ + + + | RENAL FUNCTION SET | Urgent | 05/03/2014 | | Results for this | | (NA,K,CL,CO2,BUN,CRE | | 3:59 AM | | procedure are in the | | AT,GLUC,CA,PHOS,ALB | | PST | | results section. | | ) | | | | | + +--------+ + + + | CBC ONLY | Routin | 05/03/2014 | | Results for this | | | e | 3:59 AM | | procedure are in the | | | | PST | | results section. | + +--------+ + + + | MAGNESIUM, PLASMA | Urgent | 05/03/2014 | | Results for this | | | | 3:59 AM | | procedure are in the | | | | PST | | results section. | + +--------+ + + + | RENAL FUNCTION SET | Urgent | 05/02/2014 | | Results for this | | (NA,K,CL,CO2,BUN,CRE | | 10:34 PM | | procedure are in the | | AT,GLUC,CA,PHOS,ALB | | PST | | results section. | | ) | | | | | + +--------+ + + + | MAGNESIUM, PLASMA | Urgent | 05/02/2014 | | Results for this | | | | 10:34 PM | | procedure are in the | | | | PST | | results section. | + +--------+ + + + | RENAL FUNCTION SET | Urgent | 05/02/2014 | | Results for this | | (NA,K,CL,CO2,BUN,CRE | | 3:00 PM | | procedure are in the | | AT,GLUC,CA,PHOS,ALB | | PST | | results section. | | ) | | | | | + +--------+ + + + | LACTATE, POC | Routin | 05/02/2014 | Crohn's disease of | Results for this | | | e | 10:08 AM | both small and | procedure are in the | | | | PST | large intestine with | results section. | | | | | complication (HCC) | | + +--------+ + + + | BLOOD GAS ART, POC | Routin | 05/02/2014 | Crohn's disease of | Results for this | | RESP | e | 10:08 AM | both small and | procedure are in the | | | | PST | large intestine with | results section. | | | | | complication (HCC) | | + +--------+ + + + | BLOOD GASES, | Routin | 05/02/2014 | | Results for this | | ARTERIAL - LAB | e | 4:30 AM | | procedure are in the | | | | PST | | results section. | + +--------+ + + + | CBC (HEMOGRAM) ONLY | Urgent | 05/02/2014 | | Results for this | | | | 3:03 AM | | procedure are in the | | | | PST | | results section. | + +--------+ + + + | INR | Urgent | 05/02/2014 | | Results for this | | | | 3:03 AM | | procedure are in the | | | | PST | | results section. | + +--------+ + + + | RENAL FUNCTION SET | Urgent | 05/02/2014 | | Results for this | | (NA,K,CL,CO2,BUN,CRE | | 3:03 AM | | procedure are in the | | AT,GLUC,CA,PHOS,ALB | | PST | | results section. | | ) | | | | | + +--------+ + + + | CBC ONLY | Urgent | 05/02/2014 | | Results for this | | | | 3:03 AM | | procedure are in the | | | | PST | | results section. | + +--------+ + + + | MAGNESIUM, PLASMA | Urgent | 05/02/2014 | | Results for this | | | | 3:03 AM | | procedure are in the | | | | PST | | results section. | + +--------+ + + + | 12 LEAD ECG | Routin | 05/02/2014 | | Results for this | | | e | 2:15 AM | | procedure are in the | | | | PST | | results section. | + +--------+ + + + | X-RAY PORTABLE CHEST | Urgent | 05/02/2014 | | Results for this | | 1 VIEW | | 2:11 AM | | procedure are in the | | | | PST | | results section. | + +--------+ + + + | BLOOD GASES, | Extrem | 05/02/2014 | | Results for this | | ARTERIAL - LAB | e | 1:49 AM | | procedure are in the | | | Emerge | PST | | results section. | | | ncy | | | | + +--------+ + + + | CAPILLARY BLOOD | Routin | 05/01/2014 | | Results for this | | GLUCOSE (NO CHG), | e | 11:46 PM | | procedure are in the | | POC | | PST | | results section. | + +--------+ + + + | CAPILLARY BLOOD | Routin | 05/01/2014 | | Results for this | | GLUCOSE (NO CHG), | e | 6:19 PM | | procedure are in the | | POC | | PST | | results section. | + +--------+ + + + | BLOOD GASES, | Routin | 05/01/2014 | | Results for this | | ARTERIAL - LAB | e | 8:44 AM | | procedure are in the | | | | PST | | results section. | + +--------+ + + + | X-RAY PORTABLE CHEST | Urgent | 05/01/2014 | | Results for this | | 1 VIEW | | 3:37 AM | | procedure are in the | | | | PST | | results section. | + +--------+ + + + | CBC (HEMOGRAM) ONLY | Urgent | 05/01/2014 | | Results for this | | | | 2:45 AM | | procedure are in the | | | | PST | | results section. | + +--------+ + + + | INR | Urgent | 05/01/2014 | | Results for this | | | | 2:45 AM | | procedure are in the | | | | PST | | results section. | + +--------+ + + + | RENAL FUNCTION SET | Urgent | 05/01/2014 | | Results for this | | (NA,K,CL,CO2,BUN,CRE | | 2:45 AM | | procedure are in the | | AT,GLUC,CA,PHOS,ALB | | PST | | results section. | | ) | | | | | + +--------+ + + + | CBC ONLY | Urgent | 05/01/2014 | | Results for this | | | | 2:45 AM | | procedure are in the | | | | PST | | results section. | + +--------+ + + + | MAGNESIUM, PLASMA | Urgent | 05/01/2014 | | Results for this | | | | 2:45 AM | | procedure are in the | | | | PST | | results section. | + +--------+ + + + | CAPILLARY BLOOD | Routin | 05/01/2014 | | Results for this | | GLUCOSE (NO CHG), | e | 12:22 AM | | procedure are in the | | POC | | PST | | results section. | + +--------+ + + + | X-RAY ABD LTD | Routin | 04/30/2014 | | Results for this | | FEEDING TUBE EVAL | e | 4:24 PM | | procedure are in the | | | | PST | | results section. | + +--------+ + + + | CT ABDOMEN AND | Urgent | 04/30/2014 | | Results for this | | PELVIS W IV CONTRAST | | 10:04 AM | | procedure are in the | | | | PST | | results section. | + +--------+ + + + | X-RAY PORTABLE CHEST | Urgent | 04/30/2014 | | Results for this | | 1 VIEW | | 9:22 AM | | procedure are in the | | | | PST | | results section. | + +--------+ + + + | CBC (HEMOGRAM) ONLY | Urgent | 04/30/2014 | | Results for this | | | | 4:44 AM | | procedure are in the | | | | PST | | results section. | + +--------+ + + + | INR | Urgent | 04/30/2014 | | Results for this | | | | 4:44 AM | | procedure are in the | | | | PST | | results section. | + +--------+ + + + | RENAL FUNCTION SET | Urgent | 04/30/2014 | | Results for this | | (NA,K,CL,CO2,BUN,CRE | | 4:44 AM | | procedure are in the | | AT,GLUC,CA,PHOS,ALB | | PST | | results section. | | ) | | | | | + +--------+ + + + | CBC ONLY | Urgent | 04/30/2014 | | Results for this | | | | 4:44 AM | | procedure are in the | | | | PST | | results section. | + +--------+ + + + | MAGNESIUM, PLASMA | Urgent | 04/30/2014 | | Results for this | | | | 4:44 AM | | procedure are in the | | | | PST | | results section. | + +--------+ + + + | RENAL FUNCTION SET | Urgent | 04/29/2014 | | Results for this | | (NA,K,CL,CO2,BUN,CRE | | 10:51 PM | | procedure are in the | | AT,GLUC,CA,PHOS,ALB | | PST | | results section. | | ) | | | | | + +--------+ + + + | CAPILLARY BLOOD | Routin | 04/29/2014 | | Results for this | | GLUCOSE (NO CHG), | e | 1:10 AM | | procedure are in the | | POC | | PST | | results section. | + +--------+ + + + | CBC (HEMOGRAM) ONLY | Routin | 04/29/2014 | | Results for this | | | e | 1:00 AM | | procedure are in the | | | | PST | | results section. | + +--------+ + + + | INR | Urgent | 04/29/2014 | | Results for this | | | | 1:00 AM | | procedure are in the | | | | PST | | results section. | + +--------+ + + + | LIVER SET | Urgent | 04/29/2014 | | Results for this | | (AST,ALT,BILI | | 1:00 AM | | procedure are in the | | TOTAL,BILI | | PST | | results section. | | DIRECT,ALK | | | | | | PHOS,ALB,PROT TOTAL) | | | | | + +--------+ + + + | RENAL FUNCTION SET | Urgent | 04/29/2014 | | Results for this | | (NA,K,CL,CO2,BUN,CRE | | 1:00 AM | | procedure are in the | | AT,GLUC,CA,PHOS,ALB | | PST | | results section. | | ) | | | | | + +--------+ + + + | CBC ONLY | Routin | 04/29/2014 | | Results for this | | | e | 1:00 AM | | procedure are in the | | | | PST | | results section. | + +--------+ + + + | MAGNESIUM, PLASMA | Urgent | 04/29/2014 | | Results for this | | | | 1:00 AM | | procedure are in the | | | | PST | | results section. | + +--------+ + + + | CAPILLARY BLOOD | Routin | 04/28/2014 | | Results for this | | GLUCOSE (NO CHG), | e | 8:17 AM | | procedure are in the | | POC | | PST | | results section. | + +--------+ + + + | CBC (HEMOGRAM) ONLY | Urgent | 04/28/2014 | | Results for this | | | | 8:00 AM | | procedure are in the | | | | PST | | results section. | + +--------+ + + + | INR | Urgent | 04/28/2014 | | Results for this | | | | 8:00 AM | | procedure are in the | | | | PST | | results section. | + +--------+ + + + | CBC ONLY | Urgent | 04/28/2014 | | Results for this | | | | 8:00 AM | | procedure are in the | | | | PST | | results section. | + +--------+ + + + | CBC (HEMOGRAM) ONLY | Urgent | 04/28/2014 | | Results for this | | | | 3:45 AM | | procedure are in the | | | | PST | | results section. | + +--------+ + + + | RENAL FUNCTION SET | Urgent | 04/28/2014 | | Results for this | | (NA,K,CL,CO2,BUN,CRE | | 3:45 AM | | procedure are in the | | AT,GLUC,CA,PHOS,ALB | | PST | | results section. | | ) | | | | | + +--------+ + + + | CBC ONLY | Urgent | 04/28/2014 | | Results for this | | | | 3:45 AM | | procedure are in the | | | | PST | | results section. | + +--------+ + + + | MAGNESIUM, PLASMA | Urgent | 04/28/2014 | | Results for this | | | | 3:45 AM | | procedure are in the | | | | PST | | results section. | + +--------+ + + + | HEPARIN, EITHER | Urgent | 04/28/2014 | | Results for this | | STANDARD / LMW, | | 3:00 AM | | procedure are in the | | BLOOD | | PST | | results section. | + +--------+ + + + | HEPARIN, EITHER | Urgent | 04/27/2014 | | Results for this | | STANDARD / LMW, | | 8:00 PM | | procedure are in the | | BLOOD | | PST | | results section. | + +--------+ + + + | [facility] PORTABLE | Routin | 04/27/2014 | | Results for this | | PSEUDOANEUR COMP | e | 12:47 PM | | procedure are in the | | LEFT | | PST | | results section. | + +--------+ + + + | HEPARIN, EITHER | Urgent | 04/27/2014 | | Results for this | | STANDARD / LMW, | | 12:04 PM | | procedure are in the | | BLOOD | | PST | | results section. | + +--------+ + + + | CAPILLARY BLOOD | Routin | 04/27/2014 | | Results for this | | GLUCOSE (NO CHG), | e | 12:03 PM | | procedure are in the | | POC | | PST | | results section. | + +--------+ + + + | X-RAY ABD LTD | Routin | 04/27/2014 | | Results for this | | FEEDING TUBE EVAL | e | 10:33 AM | | procedure are in the | | PORTABLE | | PST | | results section. | + +--------+ + + + | C. DIFFICILE TOXIN, | Routin | 04/27/2014 | | Results for this | | W/REFLEX | e | 8:32 AM | | procedure are in the | | CONFIRMATION IF | | PST | | results section. | | INDETERMINATE | | | | | | RESULTS | | | | | + +--------+ + + + | CBC (HEMOGRAM) ONLY | Routin | 04/27/2014 | | Results for this | | | e | 4:33 AM | | procedure are in the | | | | PST | | results section. | + +--------+ + + + | HEPARIN, EITHER | Urgent | 04/27/2014 | | Results for this | | STANDARD / LMW, | | 4:33 AM | | procedure are in the | | BLOOD | | PST | | results section. | + +--------+ + + + | LIVER SET | Urgent | 04/27/2014 | | Results for this | | (AST,ALT,BILI | | 4:33 AM | | procedure are in the | | TOTAL,BILI | | PST | | results section. | | DIRECT,ALK | | | | | | PHOS,ALB,PROT TOTAL) | | | | | + +--------+ + + + | RENAL FUNCTION SET | Urgent | 04/27/2014 | | Results for this | | (NA,K,CL,CO2,BUN,CRE | | 4:33 AM | | procedure are in the | | AT,GLUC,CA,PHOS,ALB | | PST | | results section. | | ) | | | | | + +--------+ + + + | CBC ONLY | Routin | 04/27/2014 | | Results for this | | | e | 4:33 AM | | procedure are in the | | | | PST | | results section. | + +--------+ + + + | MAGNESIUM, PLASMA | Urgent | 04/27/2014 | | Results for this | | | | 4:33 AM | | procedure are in the | | | | PST | | results section. | + +--------+ + + + | CBC (HEMOGRAM) ONLY | Urgent | 04/26/2014 | | Results for this | | | | 10:02 PM | | procedure are in the | | | | PST | | results section. | + +--------+ + + + | INR | Urgent | 04/26/2014 | | Results for this | | | | 10:02 PM | | procedure are in the | | | | PST | | results section. | + +--------+ + + + | CBC ONLY | Urgent | 04/26/2014 | | Results for this | | | | 10:02 PM | | procedure are in the | | | | PST | | results section. | + +--------+ + + + | APTT (ACT. PART. | Urgent | 04/26/2014 | | Results for this | | THROMBO TIME) | | 10:02 PM | | procedure are in the | | | | PST | | results section. | + +--------+ + + + | RENAL FUNCTION SET | Urgent | 04/26/2014 | | Results for this | | (NA,K,CL,CO2,BUN,CRE | | 7:41 PM | | procedure are in the | | AT,GLUC,CA,PHOS,ALB | | PST | | results section. | | ) | | | | | + +--------+ + + + | MAGNESIUM, PLASMA | Urgent | 04/26/2014 | | Results for this | | | | 7:41 PM | | procedure are in the | | | | PST | | results section. | + +--------+ + + + | EMBOLIZATION | Routin | 04/26/2014 | | Results for this | | NON-NEURO | e | 5:33 PM | | procedure are in the | | | | PST | | results section. | + +--------+ + + + | CAPILLARY BLOOD | Routin | 04/26/2014 | | Results for this | | GLUCOSE (NO CHG), | e | 1:51 PM | | procedure are in the | | POC | | PST | | results section. | + +--------+ + + + | VAS LAB LOWER EXT | Routin | 04/26/2014 | | Results for this | | PSEUDOANEUR COMP | e | 1:03 PM | | procedure are in the | | LEFT | | PST | | results section. | + +--------+ + + + | CULTURE, BLOOD BACTI | Urgent | 04/26/2014 | | Results for this | | & YEAST [facility] | | 12:59 PM | | procedure are in the | | | | PST | | results section. | + +--------+ + + + | CULTURE, BLOOD BACTI | Urgent | 04/26/2014 | | Results for this | | & YEAST | | 12:59 PM | | procedure are in the | | | | PST | | results section. | + +--------+ + + + | VASC LAB PORTABLE | Routin | 04/26/2014 | | Results for this | | VENOUS DUPLEX LOWER | e | 10:57 AM | | procedure are in the | | EXTREMITY BILATERAL | | PST | | results section. | | COMPLETE | | | | | + +--------+ + + + | CBC (HEMOGRAM) ONLY | Urgent | 04/26/2014 | | Results for this | | | | 9:07 AM | | procedure are in the | | | | PST | | results section. | + +--------+ + + + | HEPARIN, EITHER | Urgent | 04/26/2014 | | Results for this | | STANDARD / LMW, | | 9:07 AM | | procedure are in the | | BLOOD | | PST | | results section. | + +--------+ + + + | INR | Urgent | 04/26/2014 | | Results for this | | | | 9:07 AM | | procedure are in the | | | | PST | | results section. | + +--------+ + + + | CBC ONLY | Urgent | 04/26/2014 | | Results for this | | | | 9:07 AM | | procedure are in the | | | | PST | | results section. | + +--------+ + + + | DIFFERENTIAL, ADD ON | Urgent | 04/25/2014 | | Results for this | | | | 11:59 PM | | procedure are in the | | | | PST | | results section. | + +--------+ + + + | DIFFERENTIAL, ADD ON | Urgent | 04/25/2014 | | Results for this | | | | 11:59 PM | | procedure are in the | | | | PST | | results section. | + +--------+ + + + | CBC (HEMOGRAM) ONLY | Urgent | 04/25/2014 | | Results for this | | | | 11:59 PM | | procedure are in the | | | | PST | | results section. | + +--------+ + + + | INR | Urgent | 04/25/2014 | | Results for this | | | | 11:59 PM | | procedure are in the | | | | PST | | results section. | + +--------+ + + + | RENAL FUNCTION SET | Urgent | 04/25/2014 | | Results for this | | (NA,K,CL,CO2,BUN,CRE | | 11:59 PM | | procedure are in the | | AT,GLUC,CA,PHOS,ALB | | PST | | results section. | | ) | | | | | + +--------+ + + + | CBC ONLY | Urgent | 04/25/2014 | | Results for this | | | | 11:59 PM | | procedure are in the | | | | PST | | results section. | + +--------+ + + + | MAGNESIUM, PLASMA | Urgent | 04/25/2014 | | Results for this | | | | 11:59 PM | | procedure are in the | | | | PST | | results section. | + +--------+ + + + | CAPILLARY BLOOD | Routin | 04/25/2014 | | Results for this | | GLUCOSE (NO CHG), | e | 6:40 PM | | procedure are in the | | POC | | PST | | results section. | + +--------+ + + + | RENAL FUNCTION SET | Urgent | 04/25/2014 | | Results for this | | (NA,K,CL,CO2,BUN,CRE | | 6:36 PM | | procedure are in the | | AT,GLUC,CA,PHOS,ALB | | PST | | results section. | | ) | | | | | + +--------+ + + + | CAPILLARY BLOOD | Routin | 04/25/2014 | | Results for this | | GLUCOSE (NO CHG), | e | 1:13 PM | | procedure are in the | | POC | | PST | | results section. | + +--------+ + + + | INR | Routin | 04/25/2014 | | Results for this | | | e | 1:07 PM | | procedure are in the | | | | PST | | results section. | + +--------+ + + + | LIVER SET | Urgent | 04/25/2014 | | Results for this | | (AST,ALT,BILI | | 1:07 PM | | procedure are in the | | TOTAL,BILI | | PST | | results section. | | DIRECT,ALK | | | | | | PHOS,ALB,PROT TOTAL) | | | | | + +--------+ + + + | PRODUCT - FRESH | Routin | 04/25/2014 | | Results for this | | FROZEN PLASMA | e | 7:48 AM | | procedure are in the | | | | PST | | results section. | + +--------+ + + + | PRODUCT - FRESH | Urgent | 04/25/2014 | | Results for this | | FROZEN PLASMA | | 7:48 AM | | procedure are in the | | | | PST | | results section. | + +--------+ + + + | HEMATOCRIT | Urgent | 04/25/2014 | | Results for this | | | | 6:04 AM | | procedure are in the | | | | PST | | results section. | + +--------+ + + + | CBC (HEMOGRAM) ONLY | Urgent | 04/25/2014 | | Results for this | | | | 12:04 AM | | procedure are in the | | | | PST | | results section. | + +--------+ + + + | INR | Urgent | 04/25/2014 | | Results for this | | | | 12:04 AM | | procedure are in the | | | | PST | | results section. | + +--------+ + + + | RENAL FUNCTION SET | Urgent | 04/25/2014 | | Results for this | | (NA,K,CL,CO2,BUN,CRE | | 12:04 AM | | procedure are in the | | AT,GLUC,CA,PHOS,ALB | | PST | | results section. | | ) | | | | | + +--------+ + + + | CBC ONLY | Urgent | 04/25/2014 | | Results for this | | | | 12:04 AM | | procedure are in the | | | | PST | | results section. | + +--------+ + + + | MAGNESIUM, PLASMA | Urgent | 04/25/2014 | | Results for this | | | | 12:04 AM | | procedure are in the | | | | PST | | results section. | + +--------+ + + + | CBC (HEMOGRAM) ONLY | Routin | 04/24/2014 | | Results for this | | | e | 6:30 PM | | procedure are in the | | | | PST | | results section. | + +--------+ + + + | INR | Routin | 04/24/2014 | | Results for this | | | e | 6:30 PM | | procedure are in the | | | | PST | | results section. | + +--------+ + + + | CBC ONLY | Routin | 04/24/2014 | | Results for this | | | e | 6:30 PM | | procedure are in the | | | | PST | | results section. | + +--------+ + + + | CAPILLARY BLOOD | Routin | 04/24/2014 | | Results for this | | GLUCOSE (NO CHG), | e | 5:09 PM | | procedure are in the | | POC | | PST | | results section. | + +--------+ + + + | CAPILLARY BLOOD | Routin | 04/24/2014 | | Results for this | | GLUCOSE (NO CHG), | e | 10:47 AM | | procedure are in the | | POC | | PST | | results section. | + +--------+ + + + | CBC (HEMOGRAM) ONLY | Routin | 04/24/2014 | | Results for this | | | e | 10:42 AM | | procedure are in the | | | | PST | | results section. | + +--------+ + + + | INR | Routin | 04/24/2014 | | Results for this | | | e | 10:42 AM | | procedure are in the | | | | PST | | results section. | + +--------+ + + + | CBC ONLY | Routin | 04/24/2014 | | Results for this | | | e | 10:42 AM | | procedure are in the | | | | PST | | results section. | + +--------+ + + + | X-RAY PORTABLE | Routin | 04/24/2014 | | Results for this | | ABDOMEN 2 VIEWS | e | 9:15 AM | | procedure are in the | | | | PST | | results section. | + +--------+ + + + | EXPLORATORY | | 04/24/2014 | HEMORRHAGIC SHOCK | | | LAPAROTOMY | | 7:30 AM | | | | | | PST | | | + +--------+ + + + | CBC (HEMOGRAM) ONLY | Routin | 04/24/2014 | | Results for this | | | e | 6:30 AM | | procedure are in the | | | | PST | | results section. | + +--------+ + + + | INR | Routin | 04/24/2014 | | Results for this | | | e | 6:30 AM | | procedure are in the | | | | PST | | results section. | + +--------+ + + + | CBC ONLY | Routin | 04/24/2014 | | Results for this | | | e | 6:30 AM | | procedure are in the | | | | PST | | results section. | + +--------+ + + + | X-RAY PORTABLE CHEST | Routin | 04/24/2014 | | Results for this | | 1 VIEW | e | 5:32 AM | | procedure are in the | | | | PST | | results section. | + +--------+ + + + | CBC (HEMOGRAM) ONLY | Urgent | 04/24/2014 | | Results for this | | | | 2:00 AM | | procedure are in the | | | | PST | | results section. | + +--------+ + + + | INR | Urgent | 04/24/2014 | | Results for this | | | | 2:00 AM | | procedure are in the | | | | PST | | results section. | + +--------+ + + + | RENAL FUNCTION SET | Urgent | 04/24/2014 | | Results for this | | (NA,K,CL,CO2,BUN,CRE | | 2:00 AM | | procedure are in the | | AT,GLUC,CA,PHOS,ALB | | PST | | results section. | | ) | | | | | + +--------+ + + + | CBC ONLY | Urgent | 04/24/2014 | | Results for this | | | | 2:00 AM | | procedure are in the | | | | PST | | results section. | + +--------+ + + + | MAGNESIUM, PLASMA | Urgent | 04/24/2014 | | Results for this | | | | 2:00 AM | | procedure are in the | | | | PST | | results section. | + +--------+ + + + | LACTATE, POC | Routin | 04/24/2014 | Crohn's disease of | Results for this | | | e | 12:59 AM | both small and | procedure are in the | | | | PST | large intestine with | results section. | | | | | complication (HCC) | | + +--------+ + + + | BLOOD GAS ART, POC | Routin | 04/24/2014 | Crohn's disease of | Results for this | | RESP | e | 12:59 AM | both small and | procedure are in the | | | | PST | large intestine with | results section. | | | | | complication (HCC) | | + +--------+ + + + | RENAL FUNCTION SET | Urgent | 04/23/2014 | | Results for this | | (NA,K,CL,CO2,BUN,CRE | | 10:00 PM | | procedure are in the | | AT,GLUC,CA,PHOS,ALB | | PST | | results section. | | ) | | | | | + +--------+ + + + | SODIUM TOTAL, URINE | Routin | 04/23/2014 | | Results for this | | | e | 9:59 PM | | procedure are in the | | | | PST | | results section. | + +--------+ + + + | CREATININE, URINE | Routin | 04/23/2014 | | Results for this | | | e | 9:59 PM | | procedure are in the | | | | PST | | results section. | + +--------+ + + + | HEMATOCRIT | Urgent | 04/23/2014 | | Results for this | | | | 9:14 PM | | procedure are in the | | | | PST | | results section. | + +--------+ + + + | LACTATE | Urgent | 04/23/2014 | | Results for this | | | | 6:58 PM | | procedure are in the | | | | PST | | results section. | + +--------+ + + + | BLOOD GASES, | Routin | 04/23/2014 | | Results for this | | ARTERIAL - LAB | e | 6:58 PM | | procedure are in the | | | | PST | | results section. | + +--------+ + + + | CBC (HEMOGRAM) ONLY | Urgent | 04/23/2014 | | Results for this | | | | 6:29 PM | | procedure are in the | | | | PST | | results section. | + +--------+ + + + | RENAL FUNCTION SET | Urgent | 04/23/2014 | | Results for this | | (NA,K,CL,CO2,BUN,CRE | | 6:29 PM | | procedure are in the | | AT,GLUC,CA,PHOS,ALB | | PST | | results section. | | ) | | | | | + +--------+ + + + | CBC ONLY | Urgent | 04/23/2014 | | Results for this | | | | 6:29 PM | | procedure are in the | | | | PST | | results section. | + +--------+ + + + | COAGULOPATHY PANEL | Urgent | 04/23/2014 | | Results for this | | (INR,APTT,FIBRINOGEN | | 6:29 PM | | procedure are in the | | ) | | PST | | results section. | + +--------+ + + + | CAPILLARY BLOOD | Routin | 04/23/2014 | | Results for this | | GLUCOSE (NO CHG), | e | 6:07 PM | | procedure are in the | | POC | | PST | | results section. | + +--------+ + + + | EMBOLIZATION | Routin | 04/23/2014 | | Results for this | | NON-NEURO | e | 4:48 PM | | procedure are in the | | | | PST | | results section. | + +--------+ + + + | TRANSFUSE FRESH | Routin | 04/23/2014 | | | | FROZEN PLASMA | e | 2:53 PM | | | | | | PST | | | + +--------+ + + + | CTA ABDOMEN AND | Routin | 04/23/2014 | | Results for this | | PELVIS W IV CONTRAST | e | 2:17 PM | | procedure are in the | | | | PST | | results section. | + +--------+ + + + | 12 LEAD ECG | Routin | 04/23/2014 | | Results for this | | | e | 12:24 PM | | procedure are in the | | | | PST | | results section. | + +--------+ + + + | PRODUCT - RED CELLS | Routin | 04/23/2014 | | Results for this | | LEUKOREDUCED | e | 11:49 AM | | procedure are in the | | | | PST | | results section. | + +--------+ + + + | PRODUCT - RED CELLS | Routin | 04/23/2014 | | Results for this | | LEUKOREDUCED | e | 11:49 AM | | procedure are in the | | | | PST | | results section. | + +--------+ + + + | PRODUCT - RED CELLS | Routin | 04/23/2014 | | Results for this | | LEUKOREDUCED | e | 11:49 AM | | procedure are in the | | | | PST | | results section. | + +--------+ + + + | PRODUCT - RED CELLS | Routin | 04/23/2014 | | Results for this | | LEUKOREDUCED | e | 11:49 AM | | procedure are in the | | | | PST | | results section. | + +--------+ + + + | PRODUCT - RED CELLS | Routin | 04/23/2014 | | Results for this | | LEUKOREDUCED | e | 11:49 AM | | procedure are in the | | | | PST | | results section. | + +--------+ + + + | PRODUCT - RED CELLS | Routin | 04/23/2014 | | Results for this | | LEUKOREDUCED | e | 11:49 AM | | procedure are in the | | | | PST | | results section. | + +--------+ + + + | X-RAY PORTABLE CHEST | Urgent | 04/23/2014 | | Results for this | | 1 VIEW | | 11:41 AM | | procedure are in the | | | | PST | | results section. | + +--------+ + + + | PRODUCT - FRESH | Routin | 04/23/2014 | | Results for this | | FROZEN PLASMA | e | 11:36 AM | | procedure are in the | | | | PST | | results section. | + +--------+ + + + | PRODUCT - FRESH | Routin | 04/23/2014 | | Results for this | | FROZEN PLASMA | e | 11:36 AM | | procedure are in the | | | | PST | | results section. | + +--------+ + + + | PRODUCT - FRESH | Routin | 04/23/2014 | | Results for this | | FROZEN PLASMA | e | 11:36 AM | | procedure are in the | | | | PST | | results section. | + +--------+ + + + | PRODUCT - FRESH | Routin | 04/23/2014 | | Results for this | | FROZEN PLASMA | e | 11:36 AM | | procedure are in the | | | | PST | | results section. | + +--------+ + + + | PRODUCT - FRESH | Routin | 04/23/2014 | | Results for this | | FROZEN PLASMA | e | 11:36 AM | | procedure are in the | | | | PST | | results section. | + +--------+ + + + | PRODUCT - FRESH | Routin | 04/23/2014 | | Results for this | | FROZEN PLASMA | e | 11:36 AM | | procedure are in the | | | | PST | | results section. | + +--------+ + + + | PRODUCT - PLATELET | Routin | 04/23/2014 | | Results for this | | PHERESIS | e | 11:24 AM | | procedure are in the | | LEUKOREDUCED | | PST | | results section. | + +--------+ + + + | PRODUCT - PLATELET | Routin | 04/23/2014 | | Results for this | | PHERESIS | e | 11:24 AM | | procedure are in the | | LEUKOREDUCED | | PST | | results section. | + +--------+ + + + | PRODUCT - RED CELLS | Routin | 04/23/2014 | | Results for this | | LEUKOREDUCED | e | 11:21 AM | | procedure are in the | | | | PST | | results section. | + +--------+ + + + | PRODUCT - RED CELLS | Routin | 04/23/2014 | | Results for this | | LEUKOREDUCED | e | 11:21 AM | | procedure are in the | | | | PST | | results section. | + +--------+ + + + | PRODUCT - RED CELLS | Routin | 04/23/2014 | | Results for this | | LEUKOREDUCED | e | 11:21 AM | | procedure are in the | | | | PST | | results section. | + +--------+ + + + | PRODUCT - RED CELLS | Routin | 04/23/2014 | | Results for this | | LEUKOREDUCED | e | 11:21 AM | | procedure are in the | | | | PST | | results section. | + +--------+ + + + | PRODUCT - RED CELLS | Routin | 04/23/2014 | | Results for this | | LEUKOREDUCED | e | 11:21 AM | | procedure are in the | | | | PST | | results section. | + +--------+ + + + | PRODUCT - RED CELLS | Routin | 04/23/2014 | | Results for this | | LEUKOREDUCED | e | 11:21 AM | | procedure are in the | | | | PST | | results section. | + +--------+ + + + | BLOOD GASES, | Urgent | 04/23/2014 | | Results for this | | ARTERIAL - LAB | | 11:10 AM | | procedure are in the | | | | PST | | results section. | + +--------+ + + + | CBC (HEMOGRAM) ONLY | Urgent | 04/23/2014 | | Results for this | | | | 11:09 AM | | procedure are in the | | | | PST | | results section. | + +--------+ + + + | UA, DIPSTICK ONLY | Routin | 04/23/2014 | | Results for this | | | e | 11:09 AM | | procedure are in the | | | | PST | | results section. | + +--------+ + + + | URINE, MICROSCOPIC | Routin | 04/23/2014 | | Results for this | | EXAM | e | 11:09 AM | | procedure are in the | | | | PST | | results section. | + +--------+ + + + | URINE SCREEN FOR | Routin | 04/23/2014 | | Results for this | | CULTURE | e | 11:09 AM | | procedure are in the | | | | PST | | results section. | + +--------+ + + + | RENAL FUNCTION SET | Urgent | 04/23/2014 | | Results for this | | (NA,K,CL,CO2,BUN,CRE | | 11:09 AM | | procedure are in the | | AT,GLUC,CA,PHOS,ALB | | PST | | results section. | | ) | | | | | + +--------+ + + + | CBC ONLY | Urgent | 04/23/2014 | | Results for this | | | | 11:09 AM | | procedure are in the | | | | PST | | results section. | + +--------+ + + + | COAGULOPATHY PANEL | Urgent | 04/23/2014 | | Results for this | | (INR,APTT,FIBRINOGEN | | 11:09 AM | | procedure are in the | | ) | | PST | | results section. | + +--------+ + + + | CAPILLARY BLOOD | Routin | 04/23/2014 | | Results for this | | GLUCOSE (NO CHG), | e | 11:02 AM | | procedure are in the | | POC | | PST | | results section. | + +--------+ + + + | ANTIBODY SCREEN | Routin | 04/23/2014 | | Results for this | | | e | 10:59 AM | | procedure are in the | | | | PST | | results section. | + +--------+ + + + | TYPE AND SCREEN | Routin | 04/23/2014 | | Results for this | | | e | 10:59 AM | | procedure are in the | | | | PST | | results section. | + +--------+ + + + | ABO & RH TYPE | Routin | 04/23/2014 | | Results for this | | | e | 10:59 AM | | procedure are in the | | | | PST | | results section. | + +--------+ + + + | PRODUCT - FRESH | Routin | 04/23/2014 | | Results for this | | FROZEN PLASMA | e | 10:54 AM | | procedure are in the | | | | PST | | results section. | + +--------+ + + + | PRODUCT - FRESH | Routin | 04/23/2014 | | Results for this | | FROZEN PLASMA | e | 10:54 AM | | procedure are in the | | | | PST | | results section. | + +--------+ + + + | PRODUCT - FRESH | Routin | 04/23/2014 | | Results for this | | FROZEN PLASMA | e | 10:54 AM | | procedure are in the | | | | PST | | results section. | + +--------+ + + + | PRODUCT - FRESH | Routin | 04/23/2014 | | Results for this | | FROZEN PLASMA | e | 10:54 AM | | procedure are in the | | | | PST | | results section. | + +--------+ + + + | PRODUCT - FRESH | Routin | 04/23/2014 | | Results for this | | FROZEN PLASMA | e | 10:54 AM | | procedure are in the | | | | PST | | results section. | + +--------+ + + + | PRODUCT - FRESH | Urgent | 04/23/2014 | | Results for this | | FROZEN PLASMA | | 10:54 AM | | procedure are in the | | | | PST | | results section. | + +--------+ + + + | CARDIOLOGY | | 04/23/2014 | | Results for this | | | | 12:00 AM | | procedure are in the | | | | PST | | results section. | + +--------+ + + + documented in this encounter Results PROCEDURE NOTE (05/15/2015 4:12 PM PST)INR (05/13/2014 9:02 AM PST) + + + + + + | Component | Value | Ref Range | Performed | Pathologist | | | | | At | Signature | + + + + + + | INR | 2.00 (H) | 0.90 - 1.20 INR | [facility] | | | | | | LABORATORY | | | | | | SERVICES, | | | | | | CORE | | + + + + + + + + | Specimen | + + | Blood - Blood | + + + + + | Narrative | Performed At | + + + | INR Therapeutic ranges for full anticoagulation: INR for | [facility] | | Venous Thromboembolism (2.0 - 3.0) INR INR for | LABORATORY | | most patients with mech. valves (2.5 - 3.5) INR | JANELL SHARP | + + + + + + + + | Performing | Address | City/State/Zipcode | Phone Number | | Organization | | | | + + + + + | [facility] | [address] | [place] [address] | | | JANELL SHARP | [address] | | | + + + + + CAPILLARY BLOOD GLUCOSE (NO CHG), POC (05/13/2014 6:24 AM PST) + +---------+ + + + | Component | Value | Ref Range | Performed | Pathologist | | | | | At | Signature | + +---------+ + + + | BLOOD | 113 (H) | 60 - 99 mg/dL | [facility] - | | | GLUCOSE, | | | [facility] | | | POC | | | [facility] | | | | | | OF CARE | | | | | | TESTS | | + +---------+ + + + + + | Specimen | + + | | + + + + + + + | Performing | Address | City/State/Zipcode | Phone Number | | Organization | | | | + + + + + | [facility] | [address] | [place], [place] | | | [facility] | [address] | [address] | | | TESTS | | | | + + + + + CBC (HEMOGRAM) ONLY (05/13/2014 4:18 AM PST) + + + + + + | Component | Value | Ref Range | Performed | Pathologist | | | | | At | Signature | + + + + + + | WHITE CELL | 18.17 (H) | 4.40 - 11.00 | [facility] | | | COUNT | | K/cu mm | LABORATORY | | | | | | SERVICES, | | | | | | CORE | | + + + + + + | RED CELL | 3.33 (L) | 4.00 - 5.20 | [facility] | | | COUNT | | M/cu mm | LABORATORY | | | | | | SERVICES, | | | | | | CORE | | + + + + + + | HEMOGLOBIN | 10.6 (L) | 12.0 - 16.0 | [facility] | | | | | g/dL | LABORATORY | | | | | | SERVICES, | | | | | | CORE | | + + + + + + | HEMATOCRIT | 33.9 (L) | 36.0 - 46.0 % | [facility] | | | | | | LABORATORY | | | | | | SERVICES, | | | | | | CORE | | + + + + + + | MCV | 101.8 (H) | 80.0 - 96.0 fL | [facility] | | | | | | LABORATORY | | | | | | SERVICES, | | | | | | CORE | | + + + + + + | MCHC | 31.3 | 33.0 - 35.5 | [facility] | | | | | g/dL | LABORATORY | | | | | | SERVICES, | | | | | | CORE | | + + + + + + | RDW SD | 85.0 (H) | 35.1 - 46.3 fL | [facility] | | | | | | LABORATORY | | | | | | SERVICES, | | | | | | CORE | | + + + + + + | PLATELET | 426 (H) | 150 - 400 K/cu | [facility] | | | COUNT | | mm | LABORATORY | | | | | | SERVICES, | | | | | | CORE | | + + + + + + | MPV | 10.2 | 9.7 - 12.3 fL | [facility] | | | | | | LABORATORY | | | | | | SERVICES, | | | | | | CORE | | + + + + + + | NRBC% | 0.0 | 0.0 - 0.3 % | [facility] | | | | | | LABORATORY | | | | | | SERVICES, | | | | | | CORE | | + + + + + + | NRBC# | 0.00 | 0.00 - 0.02 | [facility] | | | | | K/cu mm | LABORATORY | | | | | | SERVICES, | | | | | | CORE | | + + + + + + + + | Specimen | + + | Blood - Blood | + + + + + + + | Performing | Address | City/State/Zipcode | Phone Number | | Organization | | | | + + + + + | [facility] | [address] | [place] [address] | | | SERVICES, CORE | [address] | | | + + + + + MAGNESIUM, PLASMA (05/13/2014 4:18 AM PST) + +-------+ + + + | Component | Value | Ref Range | Performed | Pathologist | | | | | At | Signature | + +-------+ + + + | MAGNESIUM,P | 2.0 | 1.8 - 2.5 mg/dL | [facility] | | | LASMA | | | LABORATORY | | | | | | SERVICES, | | | | | | CORE | | + +-------+ + + + + + | Specimen | + + | Blood - Blood | + + + + + + + | Performing | Address | City/State/Zipcode | Phone Number | | Organization | | | | + + + + + | [facility] | [address] | [place] [address] | | | SERVICES, CORE | [address] | | | + + + + + RENAL FUNCTION SET (NA,K,CL,CO2,BUN,CREAT,GLUC,CA,PHOS,ALB ) (05/13/2014 4:18 AM PST) + + + + + + | Component | Value | Ref Range | Performed | Pathologist | | | | | At | Signature | + + + + + + | GLUCOSE, | 91 | 60 - 99 mg/dL | [facility] | | | PLASMA | | | LABORATORY | | | (LAB) | | | SERVICES, | | | | | | CORE | | + + + + + + | BUN, PLASMA | 24 (H) | 6 - 20 mg/dL | [facility] | | | (LAB) | | | LABORATORY | | | | | | SERVICES, | | | | | | CORE | | + + + + + + | CREATININE | 0.53 (L) | 0.60 - 1.10 | [facility] | | | PLASMA | | mg/dL | LABORATORY | | | (LAB) | | | SERVICES, | | | | | | CORE | | + + + + + + | EGFR | >60 | >60 mL/min | [facility] | | | - | | | LABORATORY | | | KYRGYZ | | | SERVICES, | | | | | | CORE | | + + + + + + | EGFR NON | >60 | >60 mL/min | [facility] | | | -LUIS | | | LABORATORY | | | RICAN | | | SERVICES, | | | | | | CORE | | + + + + + + | SODIUM, | 133 (L) | 136 - 145 | [facility] | | | PLASMA | | mmol/L | LABORATORY | | | (LAB) | | | SERVICES, | | | | | | CORE | | + + + + + + | POTASSIUM, | 4.6 | 3.4 - 5.0 | [facility] | | | PLASMA | | mmol/L | LABORATORY | | | (LAB) | | | SERVICES, | | | | | | CORE | | + + + + + + | CHLORIDE, | 102 | 97 - 108 mmol/L | [facility] | | | PLASMA | | | LABORATORY | | | (LAB) | | | SERVICES, | | | | | | CORE | | + + + + + + | TOTAL CO2, | 24 | 21 - 32 mmol/L | [facility] | | | PLASMA | | | LABORATORY | | | (LAB) | | | SERVICES, | | | | | | CORE | | + + + + + + | CALCIUM, | 9.6 | 8.6 - 10.2 | [facility] | | | PLASMA | | mg/dL | LABORATORY | | | (LAB) | | | SERVICES, | | | | | | CORE | | + + + + + + | ALBUMIN, | 2.2 (L) | 3.5 - 4.7 g/dL | [facility] | | | PLASMA | | | LABORATORY | | | (LAB) | | | SERVICES, | | | | | | CORE | | + + + + + + | PHOSPHORUS, | 3.1 | 2.4 - 4.7 mg/dL | [facility] | | | PLASMA | | | LABORATORY | | | (LAB) | | | SERVICES, | | | | | | CORE | | + + + + + + | POTASSIUM | No Hemo | | [facility] | | | CMNT | | | LABORATORY | | | | | | SERVICES, | | | | | | CORE | | + + + + + + | ANION GAP | 7 | mmol/L | [facility] | | | | | | LABORATORY | | | | | | SERVICES, | | | | | | CORE | | + + + + + + | ANION | 11 | 4 - 11 mmol/L | [facility] | | | GAP(ALB | | | LABORATORY | | | CORRECTED) | | | SERVICES, | | | | | | CORE | | + + + + + + + + | Specimen | + + | Blood - Blood | + + + + + | Narrative | Performed At | + + + | GFR is estimated using the MDRD equation recommended by the | [facility] | | National Kidney Disease Education Program. Estimated GFR | LABORATORY | | Interpretive Information: <60 mL/min/1.73 sq m | SERVICES, CORE | | Chronic Kidney Disease <15 mL/min/1.73 sq m | | | Kidney Failure Estimated GFR greater that 60 mL/min/1.73 sq m is of | | | limited clinical value. The MDRD equation is not valid in the | | | following situations: - Patients under 18 years of age - Severe | | | malnutrition or obesity - Vegetarian diet - Rapidly changing kidney | | | function | | + + + + + + + + | Performing | Address | City/State/Zipcode | Phone Number | | Organization | | | | + + + + + | [facility] | [address] | [place] [address] | | | ARON, JANELL | [address] | | | + + + + + CAPILLARY BLOOD GLUCOSE (NO CHG), POC (05/13/2014 12:07 AM PST) + +---------+ + + + | Component | Value | Ref Range | Performed | Pathologist | | | | | At | Signature | + +---------+ + + + | BLOOD | 106 (H) | 60 - 99 mg/dL | [facility] - | | | GLUCOSE, | | | [facility] | | | POC | | | [facility] | | | | | | OF CARE | | | | | | TESTS | | + +---------+ + + + + + | Specimen | + + | | + + + + + + + | Performing | Address | City/State/Zipcode | Phone Number | | Organization | | | | + + + + + | [facility] | [address] | [place], [place] | | | [facility] | [address] | [address] | | | TESTS | | | | + + + + + CAPILLARY BLOOD GLUCOSE (NO CHG), POC (05/12/2014 6:17 AM PST) + +---------+ + + + | Component | Value | Ref Range | Performed | Pathologist | | | | | At | Signature | + +---------+ + + + | BLOOD | 125 (H) | 60 - 99 mg/dL | [facility] - | | | GLUCOSE, | | | [facility] | | | POC | | | [facility] | | | | | | OF CARE | | | | | | TESTS | | + +---------+ + + + + + | Specimen | + + | | + + + + + + + | Performing | Address | City/State/Zipcode | Phone Number | | Organization | | | | + + + + + | [facility] | [address] | [place], [place] | | | [facility] | [address] | [address] | | | TESTS | | | | + + + + + CBC (HEMOGRAM) ONLY (05/12/2014 1:07 AM PST) + + + + + + | Component | Value | Ref Range | Performed | Pathologist | | | | | At | Signature | + + + + + + | WHITE CELL | 15.78 (H) | 4.40 - 11.00 | [facility] | | | COUNT | | K/cu mm | LABORATORY | | | | | | SERVICES, | | | | | | CORE | | + + + + + + | RED CELL | 3.28 (L) | 4.00 - 5.20 | [facility] | | | COUNT | | M/cu mm | LABORATORY | | | | | | SERVICES, | | | | | | CORE | | + + + + + + | HEMOGLOBIN | 10.4 (L) | 12.0 - 16.0 | [facility] | | | | | g/dL | LABORATORY | | | | | | SERVICES, | | | | | | CORE | | + + + + + + | HEMATOCRIT | 33.6 (L) | 36.0 - 46.0 % | [facility] | | | | | | LABORATORY | | | | | | SERVICES, | | | | | | CORE | | + + + + + + | MCV | 102.4 (H) | 80.0 - 96.0 fL | [facility] | | | | | | LABORATORY | | | | | | SERVICES, | | | | | | CORE | | + + + + + + | MCHC | 31.0 | 33.0 - 35.5 | [facility] | | | | | g/dL | LABORATORY | | | | | | SERVICES, | | | | | | CORE | | + + + + + + | RDW SD | 86.3 (H) | 35.1 - 46.3 fL | [facility] | | | | | | LABORATORY | | | | | | SERVICES, | | | | | | CORE | | + + + + + + | PLATELET | 430 (H) | 150 - 400 K/cu | [facility] | | | COUNT | | mm | LABORATORY | | | | | | SERVICES, | | | | | | CORE | | + + + + + + | MPV | 10.8 | 9.7 - 12.3 fL | [facility] | | | | | | LABORATORY | | | | | | SERVICES, | | | | | | CORE | | + + + + + + | NRBC% | 0.1 | 0.0 - 0.3 % | [facility] | | | | | | LABORATORY | | | | | | SERVICES, | | | | | | CORE | | + + + + + + | NRBC# | 0.02 | 0.00 - 0.02 | [facility] | | | | | K/cu mm | LABORATORY | | | | | | SERVICES, | | | | | | CORE | | + + + + + + + + | Specimen | + + | Blood - Blood | + + + + + + + | Performing | Address | City/State/Zipcode | Phone Number | | Organization | | | | + + + + + | [facility] | [address] | [place] [address] | | | SERVICES, CORE | [address] | | | + + + + + MAGNESIUM, PLASMA (05/12/2014 1:07 AM PST) + +---------+ + + + | Component | Value | Ref Range | Performed | Pathologist | | | | | At | Signature | + +---------+ + + + | MAGNESIUM,P | 1.5 (L) | 1.8 - 2.5 mg/dL | [facility] | | | [facility] | | | LABORATORY | | | | | | SERVICES, | | | | | | CORE | | + +---------+ + + + + + | Specimen | + + | Blood - Blood | + + + + + + + | Performing | Address | City/State/Zipcode | Phone Number | | Organization | | | | + + + + + | [facility] | [address] | [place] [address] | | | SERVICES, CORE | [address] | | | + + + + + RENAL FUNCTION SET (NA,K,CL,CO2,BUN,CREAT,GLUC,CA,PHOS,ALB ) (05/12/2014 1:07 AM PST) + + + + + + | Component | Value | Ref Range | Performed | Pathologist | | | | | At | Signature | + + + + + + | GLUCOSE, | 98 | 60 - 99 mg/dL | [facility] | | | PLASMA | | | LABORATORY | | | (LAB) | | | SERVICES, | | | | | | CORE | | + + + + + + | BUN, PLASMA | 25 (H) | 6 - 20 mg/dL | [facility] | | | (LAB) | | | LABORATORY | | | | | | SERVICES, | | | | | | CORE | | + + + + + + | CREATININE | 0.51 (L) | 0.60 - 1.10 | [facility] | | | PLASMA | | mg/dL | LABORATORY | | | (LAB) | | | SERVICES, | | | | | | CORE | | + + + + + + | EGFR | >60 | >60 mL/min | [facility] | | | - | | | LABORATORY | | | KYRGYZ | | | SERVICES, | | | | | | CORE | | + + + + + + | EGFR NON | >60 | >60 mL/min | [facility] | | | -LUIS | | | LABORATORY | | | RICAN | | | SERVICES, | | | | | | CORE | | + + + + + + | SODIUM, | 134 (L) | 136 - 145 | [facility] | | | PLASMA | | mmol/L | LABORATORY | | | (LAB) | | | SERVICES, | | | | | | CORE | | + + + + + + | POTASSIUM, | 4.7 | 3.4 - 5.0 | [facility] | | | PLASMA | | mmol/L | LABORATORY | | | (LAB) | | | SERVICES, | | | | | | CORE | | + + + + + + | CHLORIDE, | 102 | 97 - 108 mmol/L | [facility] | | | PLASMA | | | LABORATORY | | | (LAB) | | | SERVICES, | | | | | | CORE | | + + + + + + | TOTAL CO2, | 28 | 21 - 32 mmol/L | [facility] | | | PLASMA | | | LABORATORY | | | (LAB) | | | SERVICES, | | | | | | CORE | | + + + + + + | CALCIUM, | 9.3 | 8.6 - 10.2 | [facility] | | | PLASMA | | mg/dL | LABORATORY | | | (LAB) | | | SERVICES, | | | | | | CORE | | + + + + + + | ALBUMIN, | 2.1 (L) | 3.5 - 4.7 g/dL | [facility] | | | PLASMA | | | LABORATORY | | | (LAB) | | | SERVICES, | | | | | | CORE | | + + + + + + | PHOSPHORUS, | 3.8 | 2.4 - 4.7 mg/dL | [facility] | | | PLASMA | | | LABORATORY | | | (LAB) | | | SERVICES, | | | | | | CORE | | + + + + + + | POTASSIUM | No Hemo | | [facility] | | | CMNT | | | LABORATORY | | | | | | SERVICES, | | | | | | CORE | | + + + + + + | ANION GAP | 4 | mmol/L | [facility] | | | | | | LABORATORY | | | | | | SERVICES, | | | | | | CORE | | + + + + + + | ANION | 8 | 4 - 11 mmol/L | [facility] | | | GAP(ALB | | | LABORATORY | | | CORRECTED) | | | SERVICES, | | | | | | CORE | | + + + + + + + + | Specimen | + + | Blood - Blood | + + + + + | Narrative | Performed At | + + + | GFR is estimated using the MDRD equation recommended by the | [facility] | | National Kidney Disease Education Program. Estimated GFR | LABORATORY | | Interpretive Information: <60 mL/min/1.73 sq m | ARON, JANELL | | Chronic Kidney Disease <15 mL/min/1.73 sq m | | | Kidney Failure Estimated GFR greater that 60 mL/min/1.73 sq m is of | | | limited clinical value. The MDRD equation is not valid in the | | | following situations: - Patients under 18 years of age - Severe | | | malnutrition or obesity - Vegetarian diet - Rapidly changing kidney | | | function | | + + + + + + + + | Performing | Address | City/State/Zipcode | Phone Number | | Organization | | | | + + + + + | [facility] | [address] | [place] [address] | | | JANELL SHARP | [address] | | | + + + + + INR (05/12/2014 1:07 AM PST) + + + + + + | Component | Value | Ref Range | Performed | Pathologist | | | | | At | Signature | + + + + + + | INR | 1.88 (H) | 0.90 - 1.20 INR | [facility] | | | | | | LABORATORY | | | | | | SERVICES, | | | | | | CORE | | + + + + + + + + | Specimen | + + | Blood - Blood | + + + + + | Narrative | Performed At | + + + | INR Therapeutic ranges for full anticoagulation: INR for | [facility] | | Venous Thromboembolism (2.0 - 3.0) INR INR for | LABORATORY | | most patients with mech. valves (2.5 - 3.5) INR | ARON, JANELL | + + + + + + + + | Performing | Address | City/State/Zipcode | Phone Number | | Organization | | | | + + + + + | [facility] | [address] | [place] [address] | | | JANELL SHARP | [address] | | | + + + + + CAPILLARY BLOOD GLUCOSE (NO CHG), POC (05/11/2014 11:47 PM PST) + +-------+ + + + | Component | Value | Ref Range | Performed | Pathologist | | | | | At | Signature | + +-------+ + + + | BLOOD | 93 | 60 - 99 mg/dL | [facility] - | | | GLUCOSE, | | | [facility] | | | POC | | | [facility] | | | | | | OF CARE | | | | | | TESTS | | + +-------+ + + + + + | Specimen | + + | | + + + + + + + | Performing | Address | City/State/Zipcode | Phone Number | | Organization | | | | + + + + + | [facility] | [address] | [place], [place] | | | [facility] | [address] | [address] | | | TESTS | | | | + + + + + CAPILLARY BLOOD GLUCOSE (NO CHG), POC (05/11/2014 6:44 AM PST) + +---------+ + + + | Component | Value | Ref Range | Performed | Pathologist | | | | | At | Signature | + +---------+ + + + | BLOOD | 105 (H) | 60 - 99 mg/dL | [facility] - | | | GLUCOSE, | | | [facility] | | | POC | | | [facility] | | | | | | OF CARE | | | | | | TESTS | | + +---------+ + + + + + | Specimen | + + | | + + + + + + + | Performing | Address | City/State/Zipcode | Phone Number | | Organization | | | | + + + + + | [facility] | [address] | [place], [place] | | | [facility] | [address] | [address] | | | TESTS | | | | + + + + + CBC (HEMOGRAM) ONLY (05/11/2014 3:28 AM PST) + + + + + + | Component | Value | Ref Range | Performed | Pathologist | | | | | At | Signature | + + + + + + | WHITE CELL | 14.89 (H) | 4.40 - 11.00 | [facility] | | | COUNT | | K/cu mm | LABORATORY | | | | | | SERVICES, | | | | | | CORE | | + + + + + + | RED CELL | 3.22 (L) | 4.00 - 5.20 | [facility] | | | COUNT | | M/cu mm | LABORATORY | | | | | | SERVICES, | | | | | | CORE | | + + + + + + | HEMOGLOBIN | 10.1 (L) | 12.0 - 16.0 | [facility] | | | | | g/dL | LABORATORY | | | | | | SERVICES, | | | | | | CORE | | + + + + + + | HEMATOCRIT | 32.9 (L) | 36.0 - 46.0 % | [facility] | | | | | | LABORATORY | | | | | | SERVICES, | | | | | | CORE | | + + + + + + | MCV | 102.2 (H) | 80.0 - 96.0 fL | [facility] | | | | | | LABORATORY | | | | | | SERVICES, | | | | | | CORE | | + + + + + + | MCHC | 30.7 | 33.0 - 35.5 | [facility] | | | | | g/dL | LABORATORY | | | | | | SERVICES, | | | | | | CORE | | + + + + + + | RDW SD | 86.6 (H) | 35.1 - 46.3 fL | [facility] | | | | | | LABORATORY | | | | | | SERVICES, | | | | | | CORE | | + + + + + + | PLATELET | 393 | 150 - 400 K/cu | [facility] | | | COUNT | | mm | LABORATORY | | | | | | SERVICES, | | | | | | CORE | | + + + + + + | MPV | 10.8 | 9.7 - 12.3 fL | [facility] | | | | | | LABORATORY | | | | | | SERVICES, | | | | | | CORE | | + + + + + + | NRBC% | 0.1 | 0.0 - 0.3 % | [facility] | | | | | | LABORATORY | | | | | | SERVICES, | | | | | | CORE | | + + + + + + | NRBC# | 0.02 | 0.00 - 0.02 | [facility] | | | | | K/cu mm | LABORATORY | | | | | | SERVICES, | | | | | | CORE | | + + + + + + + + | Specimen | + + | Blood - Blood | + + + + + + + | Performing | Address | City/State/Zipcode | Phone Number | | Organization | | | | + + + + + | [facility] | [address] | [place] [address] | | | SERVICES, CORE | [address] | | | + + + + + MAGNESIUM, PLASMA (05/11/2014 3:28 AM PST) + +---------+ + + + | Component | Value | Ref Range | Performed | Pathologist | | | | | At | Signature | + +---------+ + + + | MAGNESIUM,P | 1.2 (L) | 1.8 - 2.5 mg/dL | [facility] | | | [facility] | | | LABORATORY | | | | | | [facility], | | | | | | CORE | | + +---------+ + + + + + | Specimen | + + | Blood - Blood | + + + + + + + | Performing | Address | City/State/Zipcode | Phone Number | | Organization | | | | + + + + + | [facility] | [phone] | [place] [address] | | | SERVICES, CORE | [address] | | | + + + + + RENAL FUNCTION SET (NA,K,CL,CO2,BUN,CREAT,GLUC,CA,PHOS,ALB ) (05/11/2014 3:28 AM PST) + + + + + + | Component | Value | Ref Range | Performed | Pathologist | | | | | At | Signature | + + + + + + | GLUCOSE, | 106 (H) | 60 - 99 mg/dL | [facility] | | | PLASMA | | | LABORATORY | | | (LAB) | | | SERVICES, | | | | | | CORE | | + + + + + + | BUN, PLASMA | 29 (H) | 6 - 20 mg/dL | [facility] | | | (LAB) | | | LABORATORY | | | | | | SERVICES, | | | | | | CORE | | + + + + + + | CREATININE | 0.46 (L) | 0.60 - 1.10 | [facility] | | | PLASMA | | mg/dL | LABORATORY | | | (LAB) | | | SERVICES, | | | | | | CORE | | + + + + + + | EGFR | >60 | >60 mL/min | [facility] | | | - | | | LABORATORY | | | K[facility] | | | SERVICES, | | | | | | CORE | | + + + + + + | EGFR NON | >60 | >60 mL/min | [facility] | | | -LUIS | | | LABORATORY | | | RICAN | | | SERVICES, | | | | | | CORE | | + + + + + + | SODIUM, | 133 (L) | 136 - 145 | [facility] | | | PLASMA | | mmol/L | LABORATORY | | | (LAB) | | | SERVICES, | | | | | | CORE | | + + + + + + | POTASSIUM, | 4.6 | 3.4 - 5.0 | [facility] | | | PLASMA | | mmol/L | LABORATORY | | | (LAB) | | | SERVICES, | | | | | | CORE | | + + + + + + | CHLORIDE, | 100 | 97 - 108 mmol/L | [facility] | | | PLASMA | | | LABORATORY | | | (LAB) | | | SERVICES, | | | | | | CORE | | + + + + + + | TOTAL CO2, | 27 | 21 - 32 mmol/L | [facility] | | | PLASMA | | | LABORATORY | | | (LAB) | | | SERVICES, | | | | | | CORE | | + + + + + + | CALCIUM, | 8.9 | 8.6 - 10.2 | [facility] | | | PLASMA | | mg/dL | LABORATORY | | | (LAB) | | | SERVICES, | | | | | | CORE | | + + + + + + | ALBUMIN, | 2.1 (L) | 3.5 - 4.7 g/dL | [facility] | | | PLASMA | | | LABORATORY | | | (LAB) | | | SERVICES, | | | | | | CORE | | + + + + + + | PHOSPHORUS, | 2.9 | 2.4 - 4.7 mg/dL | [facility] | | | PLASMA | | | LABORATORY | | | (LAB) | | | SERVICES, | | | | | | CORE | | + + + + + + | POTASSIUM | No Hemo | | [facility] | | | [facility] | | | LABORATORY | | | | | | SERVICES, | | | | | | CORE | | + + + + + + | ANION GAP | 6 | mmol/L | [facility] | | | | | | LABORATORY | | | | | | SERVICES, | | | | | | CORE | | + + + + + + | ANION | 10 | 4 - 11 mmol/L | [facility] | | | GAP(ALB | | | LABORATORY | | | CORRECTED) | | | SERVICES, | | | | | | CORE | | + + + + + + + + | Specimen | + + | Blood - Blood | + + + + + | Narrative | Performed At | + + + | GFR is estimated using the MDRD equation recommended by the | [facility] | | National Kidney Disease Education Program. Estimated GFR | LABORATORY | | Interpretive Information: <60 mL/min/1.73 sq m | SERVICES, CORE | | Chronic Kidney Disease <15 mL/min/1.73 sq m | | | Kidney Failure Estimated GFR greater that 60 mL/min/1.73 sq m is of | | | limited clinical value. The MDRD equation is not valid in the | | | following situations: - Patients under 18 years of age - Severe | | | malnutrition or obesity - Vegetarian diet - Rapidly changing kidney | | | function | | + + + + + + + + | Performing | Address | City/State/Zipcode | Phone Number | | Organization | | | | + + + + + | [facility] | [address] | [place] [address] | | | SERVICES, CORE | [address] | | | + + + + + INR (05/11/2014 3:28 AM PST) + + + + + + | Component | Value | Ref Range | Performed | Pathologist | | | | | At | Signature | + + + + + + | INR | 1.69 (H) | 0.90 - 1.20 INR | [facility] | | | | | | LABORATORY | | | | | | SERVICES, | | | | | | CORE | | + + + + + + + + | Specimen | + + | Blood - Blood | + + + + + | Narrative | Performed At | + + + | INR Therapeutic ranges for full anticoagulation: INR for | [facility] | | Venous Thromboembolism (2.0 - 3.0) INR INR for | LABORATORY | | most patients with mech. valves (2.5 - 3.5) INR | JANELL SHARP | + + + + + + + + | Performing | Address | City/State/Zipcode | Phone Number | | Organization | | | | + + + + + | [facility] | [address] | [place] [address] | | | SERVICES, CORE | [address] | | | + + + + + CAPILLARY BLOOD GLUCOSE (NO CHG), POC (05/10/2014 11:52 PM PST) + +---------+ + + + | Component | Value | Ref Range | Performed | Pathologist | | | | | At | Signature | + +---------+ + + + | BLOOD | 121 (H) | 60 - 99 mg/dL | [facility] | | | GLUCOSE, | | | [facility] | | | POC | | | [facility] | | | | | | OF CARE | | | | | | TESTS | | + +---------+ + + + + + | Specimen | + + | | + + + + + + + | Performing | Address | City/State/Zipcode | Phone Number | | Organization | | | | + + + + + | [facility] | [address] | [place], [place] | | | [facility] | [address] | [address] | | | TESTS | | | | + + + + + CAPILLARY BLOOD GLUCOSE (NO CHG), POC (05/10/2014 6:12 PM PST) + +---------+ + + + | Component | Value | Ref Range | Performed | Pathologist | | | | | At | Signature | + +---------+ + + + | BLOOD | 140 (H) | 60 - 99 mg/dL | [facility] | | | GLUCOSE, | | | [facility] | | | POC | | | [facility] | | | | | | OF CARE | | | | | | TESTS | | + +---------+ + + + + + | Specimen | + + | | + + + + + + + | Performing | Address | City/State/Zipcode | Phone Number | | Organization | | | | + + + + + | [facility] | [address] | [place], [place] | | | [facility] | [address] | [address] | | | TESTS | | | | + + + + + VASC LAB PORTABLE VENOUS DUPLEX LOWER EXTREMITY BILATERAL COMPLETE (05/10/2014 2:05 PM PST ) + + + + + + | Component | Value | Ref Range | Performed | Pathologist | | | | | At | Signature | + + + + + + | VASC LAB | LOWER EXTREMITY VENOUS | | | | | PORTABLE | STUDY: 05/10/2014 | | | | | VENOUS | Dictated 05/10/2014 | | | | | DUPLEX | INDICATION: Pain. The | | | | | LOWER | duplex scanner was used | | | | | EXTREMITY | to examine the deep and | | | | | BILATERAL | superficial veins of | | | | | COMPLETE | theright and left lower | | | | | | extremities. The veins | | | | | | are patent with normal | | | | | | flows andresponses to | | | | | | augmentation and | | | | | | compression maneuvers | | | | | | and no thrombus is | | | | | | noted.There is an echo | | | | | | dense mass in the left | | | | | | groin measuring 1.8 x | | | | | | 2.4 cm. IMPRESSION: A | | | | | | normal venous | | | | | | examination. No | | | | | | evidence of venous | | | | | | thrombosis. There is a | | | | | | 1.8x 2.4 cm mass in the | | | | | | left groin with | | | | | | ultrasound | | | | | | characteristics | | | | | | consistent withhematoma. | | | | | | Clinical correlation | | | | | | is suggested. END | | | | | | IMPRESSION: Attending | | | | | | Radiologists: ,Author: | | | | | | MIRELA SALGADO MD I | | | | | | have personally viewed | | | | | | this procedure/exam, | | | | | | reviewed this report, | | | | | | and madechanges to it | | | | | | where appropriate. | | | | | | Final/Electronically | | | | | | isaías / MIRELA | | | | | | DAMIAN Preliminary / | | | | | | Kirstie Latif | | | | + + + + + + + + | Specimen | + + | | + + + +---------+ + + | Performing | Address | City/State/Zipcode | Phone Number | | Organization | | | | + +---------+ + + | [facility] DE[facility] OF | | | | | RADIOLOGY | | | | + +---------+ + + CAPILLARY BLOOD GLUCOSE (NO CHG), POC (05/10/2014 12:14 PM PST) + +---------+ + + + | Component | Value | Ref Range | Performed | Pathologist | | | | | At | Signature | + +---------+ + + + | BLOOD | 135 (H) | 60 - 99 mg/dL | [facility] - | | | GLUCOSE, | | | [facility] | | | POC | | | [facility] | | | | | | OF CARE | | | | | | TESTS | | + +---------+ + + + + + | Specimen | + + | | + + + + + + + | Performing | Address | City/State/Zipcode | Phone Number | | Organization | | | | + + + + + | [facility] | [address] | [place], [place] | | | [facility] | [address] | [address] | | | TESTS | | | | + + + + + CAPILLARY BLOOD GLUCOSE (NO CHG), POC (05/10/2014 6:13 AM PST) + +---------+ + + + | Component | Value | Ref Range | Performed | Pathologist | | | | | At | Signature | + +---------+ + + + | BLOOD | 116 (H) | 60 - 99 mg/dL | [facility] - | | | GLUCOSE, | | | [facility] | | | POC | | | [facility] | | | | | | OF CARE | | | | | | TESTS | | + +---------+ + + + + + | Specimen | + + | | + + + + + + + | Performing | Address | City/State/Zipcode | Phone Number | | Organization | | | | + + + + + | [facility] | [address] | [place], [place] | | | [facility] | [address] | [address] | | | TESTS | | | | + + + + + CBC (HEMOGRAM) ONLY (05/10/2014 3:39 AM PST) + + + + + + | Component | Value | Ref Range | Performed | Pathologist | | | | | At | Signature | + + + + + + | WHITE CELL | 13.80 (H) | 4.40 - 11.00 | [facility] | | | COUNT | | K/cu mm | LABORATORY | | | | | | SERVICES, | | | | | | CORE | | + + + + + + | RED CELL | 3.10 (L) | 4.00 - 5.20 | [facility] | | | COUNT | | M/cu mm | LABORATORY | | | | | | SERVICES, | | | | | | CORE | | + + + + + + | HEMOGLOBIN | 9.8 (L) | 12.0 - 16.0 | [facility] | | | | | g/dL | LABORATORY | | | | | | SERVICES, | | | | | | CORE | | + + + + + + | HEMATOCRIT | 31.7 (L) | 36.0 - 46.0 % | [facility] | | | | | | LABORATORY | | | | | | SERVICES, | | | | | | CORE | | + + + + + + | MCV | 102.3 (H) | 80.0 - 96.0 fL | [facility] | | | | | | LABORATORY | | | | | | SERVICES, | | | | | | CORE | | + + + + + + | MCHC | 30.9 | 33.0 - 35.5 | [facility] | | | | | g/dL | LABORATORY | | | | | | SERVICES, | | | | | | CORE | | + + + + + + | RDW SD | 88.2 (H) | 35.1 - 46.3 fL | [facility] | | | | | | LABORATORY | | | | | | SERVICES, | | | | | | CORE | | + + + + + + | PLATELET | 379 | 150 - 400 K/cu | [facility] | | | COUNT | | mm | LABORATORY | | | | | | SERVICES, | | | | | | CORE | | + + + + + + | MPV | 10.6 | 9.7 - 12.3 fL | [facility] | | | | | | LABORATORY | | | | | | SERVICES, | | | | | | CORE | | + + + + + + | NRBC% | 0.1 | 0.0 - 0.3 % | [facility] | | | | | | LABORATORY | | | | | | SERVICES, | | | | | | CORE | | + + + + + + | NRBC# | 0.02 | 0.00 - 0.02 | [facility] | | | | | K/cu mm | LABORATORY | | | | | | SERVICES, | | | | | | CORE | | + + + + + + + + | Specimen | + + | Blood - Blood | + + + + + + + | Performing | Address | City/State/Zipcode | Phone Number | | Organization | | | | + + + + + | [facility] | [address] | [place] [address] | | | SERVICES, CORE | [address] | | | + + + + + MAGNESIUM, PLASMA (05/10/2014 3:39 AM PST) + +---------+ + + + | Component | Value | Ref Range | Performed | Pathologist | | | | | At | Signature | + +---------+ + + + | MAGNESIUM,P | 1.4 (L) | 1.8 - 2.5 mg/dL | [facility] | | | [facility] | | | LABORATORY | | | | | | SERVICES, | | | | | | CORE | | + +---------+ + + + + + | Specimen | + + | Blood - Blood | + + + + + + + | Performing | Address | City/State/Zipcode | Phone Number | | Organization | | | | + + + + + | [facility] | [address] | [place] [address] | | | SERVICES, CORE | [address] | | | + + + + + RENAL FUNCTION SET (NA,K,CL,CO2,BUN,CREAT,GLUC,CA,PHOS,ALB ) (05/10/2014 3:39 AM PST) + + + + + + | Component | Value | Ref Range | Performed | Pathologist | | | | | At | Signature | + + + + + + | GLUCOSE, | 105 (H) | 60 - 99 mg/dL | [facility] | | | PLASMA | | | LABORATORY | | | (LAB) | | | SERVICES, | | | | | | CORE | | + + + + + + | BUN, PLASMA | 25 (H) | 6 - 20 mg/dL | [facility] | | | (LAB) | | | LABORATORY | | | | | | SERVICES, | | | | | | CORE | | + + + + + + | CREATININE | 0.46 (L) | 0.60 - 1.10 | [facility] | | | PLASMA | | mg/dL | LABORATORY | | | (LAB) | | | SERVICES, | | | | | | CORE | | + + + + + + | EGFR | >60 | >60 mL/min | [facility] | | | - | | | LABORATORY | | | KYRGYZ | | | SERVICES, | | | | | | CORE | | + + + + + + | EGFR NON | >60 | >60 mL/min | [facility] | | | -LUIS | | | LABORATORY | | | RICAN | | | SERVICES, | | | | | | CORE | | + + + + + + | SODIUM, | 136 | 136 - 145 | [facility] | | | PLASMA | | mmol/L | LABORATORY | | | (LAB) | | | SERVICES, | | | | | | CORE | | + + + + + + | POTASSIUM, | 4.3 | 3.4 - 5.0 | [facility] | | | PLASMA | | mmol/L | LABORATORY | | | (LAB) | | | SERVICES, | | | | | | CORE | | + + + + + + | CHLORIDE, | 101 | 97 - 108 mmol/L | [facility] | | | PLASMA | | | LABORATORY | | | (LAB) | | | SERVICES, | | | | | | CORE | | + + + + + + | TOTAL CO2, | 30 | 21 - 32 mmol/L | [facility] | | | PLASMA | | | LABORATORY | | | (LAB) | | | SERVICES, | | | | | | CORE | | + + + + + + | CALCIUM, | 9.0 | 8.6 - 10.2 | [facility] | | | PLASMA | | mg/dL | LABORATORY | | | (LAB) | | | SERVICES, | | | | | | CORE | | + + + + + + | ALBUMIN, | 2.0 (L) | 3.5 - 4.7 g/dL | [facility] | | | PLASMA | | | LABORATORY | | | (LAB) | | | SERVICES, | | | | | | CORE | | + + + + + + | PHOSPHORUS, | 3.1 | 2.4 - 4.7 mg/dL | [facility] | | | PLASMA | | | LABORATORY | | | (LAB) | | | SERVICES, | | | | | | CORE | | + + + + + + | POTASSIUM | No Hemo | | [facility] | | | CMNT | | | LABORATORY | | | | | | SERVICES, | | | | | | CORE | | + + + + + + | ANION GAP | 5 | mmol/L | [facility] | | | | | | LABORATORY | | | | | | SERVICES, | | | | | | CORE | | + + + + + + | ANION | 10 | 4 - 11 mmol/L | [facility] | | | GAP(ALB | | | LABORATORY | | | CORRECTED) | | | SERVICES, | | | | | | CORE | | + + + + + + + + | Specimen | + + | Blood - Blood | + + + + + | Narrative | Performed At | + + + | GFR is estimated using the MDRD equation recommended by the | [facility] | | National Kidney Disease Education Program. Estimated GFR | LABORATORY | | Interpretive Information: <60 mL/min/1.73 sq m | [facility], CORE | | Chronic Kidney Disease <15 mL/min/1.73 sq m | | | Kidney Failure Estimated GFR greater that 60 mL/min/1.73 sq m is of | | | limited clinical value. The MDRD equation is not valid in the | | | following situations: - Patients under 18 years of age - Severe | | | malnutrition or obesity - Vegetarian diet - Rapidly changing kidney | | | function | | + + + + + + + + | Performing | Address | City/State/Zipcode | Phone Number | | Organization | | | | + + + + + | [facility] | [address] | [place] [address] | | | ARON, JANELL | [address] | | | + + + + + INR (05/10/2014 3:39 AM PST) + + + + + + | Component | Value | Ref Range | Performed | Pathologist | | | | | At | Signature | + + + + + + | INR | 1.99 (H) | 0.90 - 1.20 INR | [facility] | | | | | | LABORATORY | | | | | | SERVICES, | | | | | | CORE | | + + + + + + + + | Specimen | + + | Blood - Blood | + + + + + | Narrative | Performed At | + + + | INR Therapeutic ranges for full anticoagulation: INR for | [facility] | | Venous Thromboembolism (2.0 - 3.0) INR INR for | LABORATORY | | most patients with mech. valves (2.5 - 3.5) INR | [facility]ON, JANELL | + + + + + + + + | Performing | Address | City/State/Zipcode | Phone Number | | Organization | | | | + + + + + | [facility] | [address] | [place] [address] | | | JANELL SHARP | [address] | | | + + + + + CAPILLARY BLOOD GLUCOSE (NO CHG), POC (05/10/2014 12:02 AM PST) + +---------+ + + + | Component | Value | Ref Range | Performed | Pathologist | | | | | At | Signature | + +---------+ + + + | BLOOD | 106 (H) | 60 - 99 mg/dL | [facility] - | | | GLUCOSE, | | | [facility] | | | POC | | | [facility] | | | | | | OF CARE | | | | | | TESTS | | + +---------+ + + + + + | Specimen | + + | | + + + + + + + | Performing | Address | City/State/Zipcode | Phone Number | | Organization | | | | + + + + + | [facility] | [address] | [place], [place] | | | [facility] | [facility] | [address] | | | TESTS | | | | + + + + + CAPILLARY BLOOD GLUCOSE (NO CHG), POC (05/09/2014 3:22 PM PST) + +---------+ + + + | Component | Value | Ref Range | Performed | Pathologist | | | | | At | Signature | + +---------+ + + + | BLOOD | 176 (H) | 60 - 99 mg/dL | [facility] - | | | GLUCOSE, | | | [facility] | | | POC | | | [facility] | | | | | | OF CARE | | | | | | TESTS | | + +---------+ + + + + + | Specimen | + + | | + + + + + + + | Performing | Address | City/State/Zipcode | Phone Number | | Organization | | | | + + + + + | [facility] | [address] | [place], [place] | | | [facility] | [address] | [address] | | | TESTS | | | | + + + + + CAPILLARY BLOOD GLUCOSE (NO CHG), POC (05/09/2014 6:10 AM PST) + +---------+ + + + | Component | Value | Ref Range | Performed | Pathologist | | | | | At | Signature | + +---------+ + + + | BLOOD | 119 (H) | 60 - 99 mg/dL | [facility] - | | | GLUCOSE, | | | [facility] | | | POC | | | [facility] | | | | | | OF CARE | | | | | | TESTS | | + +---------+ + + + + + | Specimen | + + | | + + + + + + + | Performing | Address | City/State/Zipcode | Phone Number | | Organization | | | | + + + + + | [facility] | [address] | [place], [place] | | | [facility] | [address] | [address] | | | TESTS | | | | + + + + + CBC (HEMOGRAM) ONLY (05/09/2014 3:08 AM PST) + + + + + + | Component | Value | Ref Range | Performed | Pathologist | | | | | At | Signature | + + + + + + | WHITE CELL | 14.76 (H) | 4.40 - 11.00 | [facility] | | | COUNT | | K/cu mm | LABORATORY | | | | | | SERVICES, | | | | | | CORE | | + + + + + + | RED CELL | 3.21 (L) | 4.00 - 5.20 | [facility] | | | COUNT | | M/cu mm | LABORATORY | | | | | | SERVICES, | | | | | | CORE | | + + + + + + | HEMOGLOBIN | 10.2 (L) | 12.0 - 16.0 | [facility] | | | | | g/dL | LABORATORY | | | | | | SERVICES, | | | | | | CORE | | + + + + + + | HEMATOCRIT | 32.8 (L) | 36.0 - 46.0 % | [facility] | | | | | | LABORATORY | | | | | | SERVICES, | | | | | | CORE | | + + + + + + | MCV | 102.2 (H) | 80.0 - 96.0 fL | [facility] | | | | | | LABORATORY | | | | | | SERVICES, | | | | | | CORE | | + + + + + + | MCHC | 31.1 | 33.0 - 35.5 | [facility] | | | | | g/dL | LABORATORY | | | | | | SERVICES, | | | | | | CORE | | + + + + + + | RDW SD | 88.0 (H) | 35.1 - 46.3 fL | [facility] | | | | | | LABORATORY | | | | | | SERVICES, | | | | | | CORE | | + + + + + + | PLATELET | 389 | 150 - 400 K/cu | [facility] | | | COUNT | | mm | LABORATORY | | | | | | SERVICES, | | | | | | CORE | | + + + + + + | MPV | 11.3 | 9.7 - 12.3 fL | [facility] | | | | | | LABORATORY | | | | | | SERVICES, | | | | | | CORE | | + + + + + + | NRBC% | 0.3 | 0.0 - 0.3 % | [facility] | | | | | | LABORATORY | | | | | | SERVICES, | | | | | | CORE | | + + + + + + | NRBC# | 0.04 (H) | 0.00 - 0.02 | [facility] | | | | | K/cu mm | LABORATORY | | | | | | SERVICES, | | | | | | CORE | | + + + + + + + + | Specimen | + + | Blood - Blood | + + + + + + + | Performing | Address | City/State/Zipcode | Phone Number | | Organization | | | | + + + + + | [facility] | [address] | [place] [address] | | | SERVICES, CORE | [address] | | | + + + + + MAGNESIUM, PLASMA (05/09/2014 3:08 AM PST) + +-------+ + + + | Component | Value | Ref Range | Performed | Pathologist | | | | | At | Signature | + +-------+ + + + | MAGNESIUM,P | 1.8 | 1.8 - 2.5 mg/dL | [facility] | | | LASMA | | | LABORATORY | | | | | | SERVICES, | | | | | | CORE | | + +-------+ + + + + + | Specimen | + + | Blood - Blood | + + + + + + + | Performing | Address | City/State/Zipcode | Phone Number | | Organization | | | | + + + + + | [facility] | [address] | [place] [address] | | | SERVICES, CORE | [address] | | | + + + + + RENAL FUNCTION SET (NA,K,CL,CO2,BUN,CREAT,GLUC,CA,PHOS,ALB ) (05/09/2014 3:08 AM PST) + + + + + + | Component | Value | Ref Range | Performed | Pathologist | | | | | At | Signature | + + + + + + | GLUCOSE, | 105 (H) | 60 - 99 mg/dL | [facility] | | | PLASMA | | | LABORATORY | | | (LAB) | | | SERVICES, | | | | | | CORE | | + + + + + + | BUN, PLASMA | 29 (H) | 6 - 20 mg/dL | [facility] | | | (LAB) | | | LABORATORY | | | | | | SERVICES, | | | | | | CORE | | + + + + + + | CREATININE | 0.53 (L) | 0.60 - 1.10 | [facility] | | | PLASMA | | mg/dL | LABORATORY | | | (LAB) | | | SERVICES, | | | | | | CORE | | + + + + + + | EGFR | >60 | >60 mL/min | [facility] | | | - | | | LABORATORY | | | [facility] | | | SERVICES, | | | | | | CORE | | + + + + + + | EGFR NON | >60 | >60 mL/min | [facility] | | | -LUIS | | | LABORATORY | | | RICAN | | | SERVICES, | | | | | | CORE | | + + + + + + | SODIUM, | 138 | 136 - 145 | [facility] | | | PLASMA | | mmol/L | LABORATORY | | | (LAB) | | | SERVICES, | | | | | | CORE | | + + + + + + | POTASSIUM, | 4.3 | 3.4 - 5.0 | [facility] | | | PLASMA | | mmol/L | LABORATORY | | | (LAB) | | | SERVICES, | | | | | | CORE | | + + + + + + | CHLORIDE, | 103 | 97 - 108 mmol/L | [facility] | | | PLASMA | | | LABORATORY | | | (LAB) | | | SERVICES, | | | | | | CORE | | + + + + + + | TOTAL CO2, | 31 | 21 - 32 mmol/L | [facility] | | | PLASMA | | | LABORATORY | | | (LAB) | | | SERVICES, | | | | | | CORE | | + + + + + + | CALCIUM, | 8.8 | 8.6 - 10.2 | [facility] | | | PLASMA | | mg/dL | LABORATORY | | | (LAB) | | | SERVICES, | | | | | | CORE | | + + + + + + | ALBUMIN, | 2.0 (L) | 3.5 - 4.7 g/dL | [facility] | | | PLASMA | | | LABORATORY | | | (LAB) | | | SERVICES, | | | | | | CORE | | + + + + + + | PHOSPHORUS, | 3.8 | 2.4 - 4.7 mg/dL | [facility] | | | PLASMA | | | LABORATORY | | | (LAB) | | | SERVICES, | | | | | | CORE | | + + + + + + | POTASSIUM | No Hemo | | [facility] | | | CMNT | | | LABORATORY | | | | | | SERVICES, | | | | | | CORE | | + + + + + + | ANION GAP | 4 | mmol/L | [facility] | | | | | | LABORATORY | | | | | | SERVICES, | | | | | | CORE | | + + + + + + | ANION | 9 | 4 - 11 mmol/L | [facility] | | | GAP(ALB | | | LABORATORY | | | CORRECTED) | | | SERVICES, | | | | | | CORE | | + + + + + + + + | Specimen | + + | Blood - Blood | + + + + + | Narrative | Performed At | + + + | GFR is estimated using the MDRD equation recommended by the | [facility] | | National Kidney Disease Education Program. Estimated GFR | LABORATORY | | Interpretive Information: <60 mL/min/1.73 sq m | SERVICES, CORE | | Chronic Kidney Disease <15 mL/min/1.73 sq m | | | Kidney Failure Estimated GFR greater that 60 mL/min/1.73 sq m is of | | | limited clinical value. The MDRD equation is not valid in the | | | following situations: - Patients under 18 years of age - Severe | | | malnutrition or obesity - Vegetarian diet - Rapidly changing kidney | | | function | | + + + + + + + + | Performing | Address | City/State/Zipcode | Phone Number | | Organization | | | | + + + + + | [facility] | [address] | [place] [address] | | | SERVICES, CORE | [address] | | | + + + + + INR (05/09/2014 3:08 AM PST) + + + + + + | Component | Value | Ref Range | Performed | Pathologist | | | | | At | Signature | + + + + + + | INR | 2.29 (H) | 0.90 - 1.20 INR | [facility] | | | | | | LABORATORY | | | | | | SERVICES, | | | | | | CORE | | + + + + + + + + | Specimen | + + | Blood - Blood | + + + + + | Narrative | Performed At | + + + | INR Therapeutic ranges for full anticoagulation: INR for | [facility] | | Venous Thromboembolism (2.0 - 3.0) INR INR for | LABORATORY | | most patients with mech. valves (2.5 - 3.5) INR | SERVICES, CORE | + + + + + + + + | Performing | Address | City/State/Zipcode | Phone Number | | Organization | | | | + + + + + | [facility] | [address] | [place] [address] | | | SERVICES, CORE | [address] | | | + + + + + CAPILLARY BLOOD GLUCOSE (NO CHG), POC (05/08/2014 11:54 PM PST) + +---------+ + + + | Component | Value | Ref Range | Performed | Pathologist | | | | | At | Signature | + +---------+ + + + | BLOOD | 107 (H) | 60 - 99 mg/dL | [facility] - | | | GLUCOSE, | | | [facility] | | | POC | | | [facility] | | | | | | OF CARE | | | | | | TESTS | | + +---------+ + + + + + | Specimen | + + | | + + + + + + + | Performing | Address | City/State/Zipcode | Phone Number | | Organization | | | | + + + + + | [facility] | [address] | [place], [place] | | | [facility] | [address] | [address] | | | TESTS | | | | + + + + + CAPILLARY BLOOD GLUCOSE (NO CHG) POC (05/08/2014 6:21 AM PST) + +-------+ + + + | Component | Value | Ref Range | Performed | Pathologist | | | | | At | Signature | + +-------+ + + + | BLOOD | 92 | 60 - 99 mg/dL | [facility] - | | | GLUCOSE, | | | [facility] | | | POC | | | [facility] | | | | | | OF CARE | | | | | | TESTS | | + +-------+ + + + + + | Specimen | + + | | + + + + + + + | Performing | Address | City/State/Zipcode | Phone Number | | Organization | | | | + + + + + | [facility] | [address] | [place], [place] | | | [facility] | [address] | [phone] | | | TESTS | | | | + + + + + CBC (HEMOGRAM) ONLY (05/08/2014 3:47 AM PST) + + + + + + | Component | Value | Ref Range | Performed | Pathologist | | | | | At | Signature | + + + + + + | WHITE CELL | 12.96 (H) | 4.40 - 11.00 | [facility] | | | COUNT | | K/cu mm | LABORATORY | | | | | | SERVICES, | | | | | | CORE | | + + + + + + | RED CELL | 3.20 (L) | 4.00 - 5.20 | [facility] | | | COUNT | | M/cu mm | LABORATORY | | | | | | SERVICES, | | | | | | CORE | | + + + + + + | HEMOGLOBIN | 10.0 (L) | 12.0 - 16.0 | [facility] | | | | | g/dL | LABORATORY | | | | | | SERVICES, | | | | | | CORE | | + + + + + + | HEMATOCRIT | 32.5 (L) | 36.0 - 46.0 % | [facility] | | | | | | LABORATORY | | | | | | SERVICES, | | | | | | CORE | | + + + + + + | MCV | 101.6 (H) | 80.0 - 96.0 fL | [facility] | | | | | | LABORATORY | | | | | | SERVICES, | | | | | | CORE | | + + + + + + | MCHC | 30.8 | 33.0 - 35.5 | [facility] | | | | | g/dL | LABORATORY | | | | | | SERVICES, | | | | | | CORE | | + + + + + + | RDW SD | 89.0 (H) | 35.1 - 46.3 fL | [facility] | | | | | | LABORATORY | | | | | | SERVICES, | | | | | | CORE | | + + + + + + | PLATELET | 374 | 150 - 400 K/cu | [facility] | | | COUNT | | mm | LABORATORY | | | | | | SERVICES, | | | | | | CORE | | + + + + + + | MPV | 11.3 | 9.7 - 12.3 fL | [facility] | | | | | | LABORATORY | | | | | | SERVICES, | | | | | | CORE | | + + + + + + | NRBC% | 0.2 | 0.0 - 0.3 % | [facility] | | | | | | LABORATORY | | | | | | SERVICES, | | | | | | CORE | | + + + + + + | NRBC# | 0.03 (H) | 0.00 - 0.02 | [facility] | | | | | K/cu mm | LABORATORY | | | | | | SERVICES, | | | | | | CORE | | + + + + + + + + | Specimen | + + | Blood - Blood | + + + + + + + | Performing | Address | City/State/Zipcode | Phone Number | | Organization | | | | + + + + + | [facility] | [address] | [place] [address] | | | SERVICES, [place] | [address] | | | + + + + + MAGNESIUM, PLASMA (05/08/2014 3:47 AM PST) + +-------+ + + + | Component | Value | Ref Range | Performed | Pathologist | | | | | At | Signature | + +-------+ + + + | MAGNESIUM,P | 2.1 | 1.8 - 2.5 mg/dL | [facility] | | | LASMA | | | LABORATORY | | | | | | SERVICES, | | | | | | CORE | | + +-------+ + + + + + | Specimen | + + | Blood - Blood | + + + + + + + | Performing | Address | City/State/Zipcode | Phone Number | | Organization | | | | + + + + + | [facility] | [address] | [place] [address] | | | SERVICES, CORE | [address] | | | + + + + + RENAL FUNCTION SET (NA,K,CL,CO2,BUN,CREAT,GLUC,CA,PHOS,ALB ) (05/08/2014 3:47 AM PST) + + + + + + | Component | Value | Ref Range | Performed | Pathologist | | | | | At | Signature | + + + + + + | GLUCOSE, | 88 | 60 - 99 mg/dL | [facility] | | | PLASMA | | | LABORATORY | | | (LAB) | | | SERVICES, | | | | | | CORE | | + + + + + + | BUN, PLASMA | 27 (H) | 6 - 20 mg/dL | [facility] | | | (LAB) | | | LABORATORY | | | | | | SERVICES, | | | | | | CORE | | + + + + + + | CREATININE | 0.46 (L) | 0.60 - 1.10 | [facility] | | | PLASMA | | mg/dL | LABORATORY | | | (LAB) | | | SERVICES, | | | | | | CORE | | + + + + + + | EGFR | >60 | >60 mL/min | [facility] | | | - | | | LABORATORY | | | [facility] | | | SERVICES, | | | | | | CORE | | + + + + + + | EGFR NON | >60 | >60 mL/min | [facility] | | | -[facility] | | | LABORATORY | | | RICAN | | | SERVICES, | | | | | | CORE | | + + + + + + | SODIUM, | 136 | 136 - 145 | [facility] | | | PLASMA | | mmol/L | LABORATORY | | | (LAB) | | | SERVICES, | | | | | | CORE | | + + + + + + | POTASSIUM, | 4.3 | 3.4 - 5.0 | [facility] | | | PLASMA | | mmol/L | LABORATORY | | | (LAB) | | | SERVICES, | | | | | | CORE | | + + + + + + | CHLORIDE, | 102 | 97 - 108 mmol/L | [facility] | | | PLASMA | | | LABORATORY | | | (LAB) | | | SERVICES, | | | | | | CORE | | + + + + + + | TOTAL CO2, | 30 | 21 - 32 mmol/L | [facility] | | | PLASMA | | | LABORATORY | | | (LAB) | | | SERVICES, | | | | | | CORE | | + + + + + + | CALCIUM, | 8.6 | 8.6 - 10.2 | [facility] | | | PLASMA | | mg/dL | LABORATORY | | | (LAB) | | | SERVICES, | | | | | | CORE | | + + + + + + | ALBUMIN, | 1.9 (L) | 3.5 - 4.7 g/dL | [facility] | | | PLASMA | | | LABORATORY | | | (LAB) | | | SERVICES, | | | | | | CORE | | + + + + + + | PHOSPHORUS, | 2.9 | 2.4 - 4.7 mg/dL | [facility] | | | PLASMA | | | LABORATORY | | | (LAB) | | | SERVICES, | | | | | | CORE | | + + + + + + | POTASSIUM | No Hemo | | [facility] | | | CMNT | | | LABORATORY | | | | | | SERVICES, | | | | | | CORE | | + + + + + + | ANION GAP | 4 | mmol/L | [facility] | | | | | | LABORATORY | | | | | | SERVICES, | | | | | | CORE | | + + + + + + | ANION | 9 | 4 - 11 mmol/L | [facility] | | | GAP(ALB | | | LABORATORY | | | CORRECTED) | | | SERVICES, | | | | | | CORE | | + + + + + + + + | Specimen | + + | Blood - Blood | + + + + + | Narrative | Performed At | + + + | GFR is estimated using the MDRD equation recommended by the | [facility] | | National Kidney Disease Education Program. Estimated GFR | LABORATORY | | Interpretive Information: <60 mL/min/1.73 sq m | SERVICES, CORE | | Chronic Kidney Disease <15 mL/min/1.73 sq m | | | Kidney Failure Estimated GFR greater that 60 mL/min/1.73 sq m is of | | | limited clinical value. The MDRD equation is not valid in the | | | following situations: - Patients under 18 years of age - Severe | | | malnutrition or obesity - Vegetarian diet - Rapidly changing kidney | | | function | | + + + + + + + + | Performing | Address | City/State/Zipcode | Phone Number | | Organization | | | | + + + + + | [facility] | [address] | [place] [address] | | | SERVICES, CORE | [address] | | | + + + + + INR (05/08/2014 3:47 AM PST) + + + + + + | Component | Value | Ref Range | Performed | Pathologist | | | | | At | Signature | + + + + + + | INR | 2.04 (H) | 0.90 - 1.20 INR | [facility] | | | | | | LABORATORY | | | | | | SERVICES, | | | | | | CORE | | + + + + + + + + | Specimen | + + | Blood - Blood | + + + + + | Narrative | Performed At | + + + | INR Therapeutic ranges for full anticoagulation: INR for | [facility] | | Venous Thromboembolism (2.0 - 3.0) INR INR for | LABORATORY | | most patients with mech. valves (2.5 - 3.5) INR | SERVICES, CORE | + + + + + + + + | Performing | Address | City/State/Zipcode | Phone Number | | Organization | | | | + + + + + | [facility] | [address] | [place] [address] | | | SERVICES, CORE | [address] | | | + + + + + CAPILLARY BLOOD GLUCOSE (NO CHG), POC (05/08/2014 12:31 AM PST) + +---------+ + + + | Component | Value | Ref Range | Performed | Pathologist | | | | | At | Signature | + +---------+ + + + | BLOOD | 107 (H) | 60 - 99 mg/dL | [facility] - | | | GLUCOSE, | | | [facility] | | | POC | | | [facility] | | | | | | OF CARE | | | | | | TESTS | | + +---------+ + + + + + | Specimen | + + | | + + + + + + + | Performing | Address | City/State/Zipcode | Phone Number | | Organization | | | | + + + + + | [facility] | [address] | [place], [place] | | | [facility] | [facility] | [address] | | | TESTS | | | | + + + + + CAPILLARY BLOOD GLUCOSE (NO CHG)ELLIOT (05/07/2014 6:08 AM PST) + +---------+ + + + | Component | Value | Ref Range | Performed | Pathologist | | | | | At | Signature | + +---------+ + + + | BLOOD | 112 (H) | 60 - 99 mg/dL | [facility] - | | | GLUCOSE, | | | [facility] | | | POC | | | [place] | | | | | | OF CARE | | | | | | TESTS | | + +---------+ + + + + + | Specimen | + + | | + + + + + + + | Performing | Address | City/State/Zipcode | Phone Number | | Organization | | | | + + + + + | [facility] | [address] | [place], [place] | | | [facility] | [facility] | [address] | | | TESTS | | | | + + + + + CBC (HEMOGRAM) ONLY (05/07/2014 3:15 AM PST) + + + + + + | Component | Value | Ref Range | Performed | Pathologist | | | | | At | Signature | + + + + + + | WHITE CELL | 14.14 (H) | 4.40 - 11.00 | [facility] | | | COUNT | | K/cu mm | LABORATORY | | | | | | SERVICES, | | | | | | CORE | | + + + + + + | RED CELL | 3.12 (L) | 4.00 - 5.20 | [facility] | | | COUNT | | M/cu mm | LABORATORY | | | | | | SERVICES, | | | | | | CORE | | + + + + + + | HEMOGLOBIN | 10.0 (L) | 12.0 - 16.0 | [facility] | | | | | g/dL | LABORATORY | | | | | | SERVICES, | | | | | | CORE | | + + + + + + | HEMATOCRIT | 31.9 (L) | 36.0 - 46.0 % | [facility] | | | | | | LABORATORY | | | | | | SERVICES, | | | | | | CORE | | + + + + + + | MCV | 102.2 (H) | 80.0 - 96.0 fL | [facility] | | | | | | LABORATORY | | | | | | SERVICES, | | | | | | CORE | | + + + + + + | MCHC | 31.3 | 33.0 - 35.5 | [facility] | | | | | g/dL | LABORATORY | | | | | | SERVICES, | | | | | | CORE | | + + + + + + | RDW SD | 87.8 (H) | 35.1 - 46.3 fL | [facility] | | | | | | LABORATORY | | | | | | SERVICES, | | | | | | CORE | | + + + + + + | PLATELET | 364 | 150 - 400 K/cu | [facility] | | | COUNT | | mm | LABORATORY | | | | | | SERVICES, | | | | | | CORE | | + + + + + + | MPV | 11.9 | 9.7 - 12.3 fL | [facility] | | | | | | LABORATORY | | | | | | SERVICES, | | | | | | CORE | | + + + + + + | NRBC% | 0.3 | 0.0 - 0.3 % | [facility] | | | | | | LABORATORY | | | | | | SERVICES, | | | | | | CORE | | + + + + + + | NRBC# | 0.04 (H) | 0.00 - 0.02 | [facility] | | | | | K/cu mm | LABORATORY | | | | | | SERVICES, | | | | | | CORE | | + + + + + + + + | Specimen | + + | Blood - Blood | + + + + + + + | Performing | Address | City/State/Zipcode | Phone Number | | Organization | | | | + + + + + | [facility] | [address] | [place] [address] | | | JANELL SHARP | [address] | | | + + + + + MAGNESIUM, PLASMA (05/07/2014 3:15 AM PST) + +---------+ + + + | Component | Value | Ref Range | Performed | Pathologist | | | | | At | Signature | + +---------+ + + + | MAGNESIUM,P | 1.6 (L) | 1.8 - 2.5 mg/dL | [facility] | | | LASMA | | | LABORATORY | | | | | | SERVICES, | | | | | | CORE | | + +---------+ + + + + + | Specimen | + + | Blood - Blood | + + + + + + + | Performing | Address | City/State/Zipcode | Phone Number | | Organization | | | | + + + + + | [facility] | [address] | [place] [address] | | | SERVICES, CORE | [address] | | | + + + + + RENAL FUNCTION SET (NA,K,CL,CO2,BUN,CREAT,GLUC,CA,PHOS,ALB ) (05/07/2014 3:15 AM PST) + + + + + + | Component | Value | Ref Range | Performed | Pathologist | | | | | At | Signature | + + + + + + | GLUCOSE, | 99 | 60 - 99 mg/dL | [facility] | | | PLASMA | | | LABORATORY | | | (LAB) | | | SERVICES, | | | | | | CORE | | + + + + + + | BUN, PLASMA | 28 (H) | 6 - 20 mg/dL | [facility] | | | (LAB) | | | LABORATORY | | | | | | SERVICES, | | | | | | CORE | | + + + + + + | CREATININE | 0.48 (L) | 0.60 - 1.10 | [facility] | | | PLASMA | | mg/dL | LABORATORY | | | (LAB) | | | SERVICES, | | | | | | CORE | | + + + + + + | EGFR | >60 | >60 mL/min | [facility] | | | - | | | LABORATORY | | | K[facility] | | | SERVICES, | | | | | | CORE | | + + + + + + | EGFR NON | >60 | >60 mL/min | [facility] | | | -[facility] | | | LABORATORY | | | RICAN | | | SERVICES, | | | | | | CORE | | + + + + + + | SODIUM, | 138 | 136 - 145 | [facility] | | | PLASMA | | mmol/L | LABORATORY | | | (LAB) | | | SERVICES, | | | | | | CORE | | + + + + + + | POTASSIUM, | 4.1 | 3.4 - 5.0 | [facility] | | | PLASMA | | mmol/L | LABORATORY | | | (LAB) | | | SERVICES, | | | | | | CORE | | + + + + + + | CHLORIDE, | 105 | 97 - 108 mmol/L | [facility] | | | PLASMA | | | LABORATORY | | | (LAB) | | | SERVICES, | | | | | | CORE | | + + + + + + | TOTAL CO2, | 29 | 21 - 32 mmol/L | [facility] | | | PLASMA | | | LABORATORY | | | (LAB) | | | SERVICES, | | | | | | CORE | | + + + + + + | CALCIUM, | 8.6 | 8.6 - 10.2 | [facility] | | | PLASMA | | mg/dL | LABORATORY | | | (LAB) | | | SERVICES, | | | | | | CORE | | + + + + + + | ALBUMIN, | 1.8 (L) | 3.5 - 4.7 g/dL | [facility] | | | PLASMA | | | LABORATORY | | | (LAB) | | | SERVICES, | | | | | | CORE | | + + + + + + | PHOSPHORUS, | 2.9 | 2.4 - 4.7 mg/dL | [facility] | | | PLASMA | | | LABORATORY | | | (LAB) | | | SERVICES, | | | | | | CORE | | + + + + + + | POTASSIUM | No Hemo | | [facility] | | | CMNT | | | LABORATORY | | | | | | SERVICES, | | | | | | CORE | | + + + + + + | ANION GAP | 4 | mmol/L | [facility] | | | | | | LABORATORY | | | | | | SERVICES, | | | | | | CORE | | + + + + + + | ANION | 9 | 4 - 11 mmol/L | [facility] | | | GAP(ALB | | | LABORATORY | | | CORRECTED) | | | SERVICES, | | | | | | CORE | | + + + + + + + + | Specimen | + + | Blood - Blood | + + + + + | Narrative | Performed At | + + + | GFR is estimated using the MDRD equation recommended by the | [facility] | | National Kidney Disease Education Program. Estimated GFR | LABORATORY | | Interpretive Information: <60 mL/min/1.73 sq m | SERVICES, CORE | | Chronic Kidney Disease <15 mL/min/1.73 sq m | | | Kidney Failure Estimated GFR greater that 60 mL/min/1.73 sq m is of | | | limited clinical value. The MDRD equation is not valid in the | | | following situations: - Patients under 18 years of age - Severe | | | malnutrition or obesity - Vegetarian diet - Rapidly changing kidney | | | function | | + + + + + + + + | Performing | Address | City/State/Zipcode | Phone Number | | Organization | | | | + + + + + | [facility] | [address] | [place] [address] | | | SERVICES, CORE | [address] | | | + + + + + INR (05/07/2014 3:15 AM PST) + + + + + + | Component | Value | Ref Range | Performed | Pathologist | | | | | At | Signature | + + + + + + | INR | 1.69 (H) | 0.90 - 1.20 INR | [facility] | | | | | | LABORATORY | | | | | | SERVICES, | | | | | | CORE | | + + + + + + + + | Specimen | + + | Blood - Blood | + + + + + | Narrative | Performed At | + + + | INR Therapeutic ranges for full anticoagulation: INR for | [facility] | | Venous Thromboembolism (2.0 - 3.0) INR INR for | LABORATORY | | most patients with mech. valves (2.5 - 3.5) INR | SERVICES, CORE | + + + + + + + + | Performing | Address | City/State/Zipcode | Phone Number | | Organization | | | | + + + + + | [facility] | [address] | [place] [address] | | | SERVICES, JANELL | [address] | | | + + + + + CAPILLARY BLOOD GLUCOSE (NO CHG), POC (05/07/2014 12:17 AM PST) + +-------+ + + + | Component | Value | Ref Range | Performed | Pathologist | | | | | At | Signature | + +-------+ + + + | BLOOD | 95 | 60 - 99 mg/dL | [facility] - | | | GLUCOSE, | | | [facility] | | | POC | | | [facility] | | | | | | OF CARE | | | | | | TESTS | | + +-------+ + + + + + | Specimen | + + | | + + + + + + + | Performing | Address | City/State/Zipcode | Phone Number | | Organization | | | | + + + + + | [facility] | [address] | [place], [place] | | | [facility] | [address] | [address] | | | TESTS | | | | + + + + + C. DIFFICILE TOXIN (05/06/2014 5:58 PM PST) + + + + + + | Component | Value | Ref Range | Performed | Pathologist | | | | | At | Signature | + + + + + + | C.DIFFICILE | Negative | Negative | [facility] | | | TOXIN | | | LABORATORY | | | | | | SERVICES, | | | | | | CORE | | + + + + + + + + | Specimen | + + | Stool - Rectum | + + + + + + + | Performing | Address | City/State/Zipcode | Phone Number | | Organization | | | | + + + + + | [facility] | [address] | [place] [address] | | | SERVICES, CORE | [address] | | | + + + + + CAPILLARY BLOOD GLUCOSE (NO CHG), POC (05/06/2014 5:49 PM PST) + +---------+ + + + | Component | Value | Ref Range | Performed | Pathologist | | | | | At | Signature | + +---------+ + + + | BLOOD | 114 (H) | 60 - 99 mg/dL | [facility] - | | | GLUCOSE, | | | [facility] | | | POC | | | [facility] | | | | | | OF CARE | | | | | | TESTS | | + +---------+ + + + + + | Specimen | + + | | + + + + + + + | Performing | Address | City/State/Zipcode | Phone Number | | Organization | | | | + + + + + | [facility] | [address] | [place], [place] | | | [facility] | [address] | [address] | | | TESTS | | | | + + + + + CAPILLARY BLOOD GLUCOSE (NO CHG), POC (05/06/2014 11:31 AM PST) + +---------+ + + + | Component | Value | Ref Range | Performed | Pathologist | | | | | At | Signature | + +---------+ + + + | BLOOD | 124 (H) | 60 - 99 mg/dL | [facility] - | | | GLUCOSE, | | | [facility] | | | POC | | | [facility] | | | | | | OF CARE | | | | | | TESTS | | + +---------+ + + + + + | Specimen | + + | | + + + + + + + | Performing | Address | City/State/Zipcode | Phone Number | | Organization | | | | + + + + + | [facility] | [address] | [place], [place] | | | [facility] | [address] | [address] | | | TESTS | | | | + + + + + CBC (HEMOGRAM) ONLY (05/06/2014 3:14 AM PST) + + + + + + | Component | Value | Ref Range | Performed | Pathologist | | | | | At | Signature | + + + + + + | WHITE CELL | 16.66 (H) | 4.40 - 11.00 | [facility] | | | COUNT | | K/cu mm | LABORATORY | | | | | | SERVICES, | | | | | | CORE | | + + + + + + | RED CELL | 3.24 (L) | 4.00 - 5.20 | [facility] | | | COUNT | | M/cu mm | LABORATORY | | | | | | SERVICES, | | | | | | CORE | | + + + + + + | HEMOGLOBIN | 10.1 (L) | 12.0 - 16.0 | [facility] | | | | | g/dL | LABORATORY | | | | | | SERVICES, | | | | | | CORE | | + + + + + + | HEMATOCRIT | 33.0 (L) | 36.0 - 46.0 % | [facility] | | | | | | LABORATORY | | | | | | SERVICES, | | | | | | CORE | | + + + + + + | MCV | 101.9 (H) | 80.0 - 96.0 fL | [facility] | | | | | | LABORATORY | | | | | | SERVICES, | | | | | | CORE | | + + + + + + | MCHC | 30.6 | 33.0 - 35.5 | [facility] | | | | | g/dL | LABORATORY | | | | | | SERVICES, | | | | | | CORE | | + + + + + + | RDW SD | 93.0 (H) | 35.1 - 46.3 fL | [facility] | | | | | | LABORATORY | | | | | | SERVICES, | | | | | | CORE | | + + + + + + | PLATELET | 346 | 150 - 400 K/cu | [facility] | | | COUNT | | mm | LABORATORY | | | | | | SERVICES, | | | | | | CORE | | + + + + + + | MPV | 12.1 | 9.7 - 12.3 fL | [facility] | | | | | | LABORATORY | | | | | | SERVICES, | | | | | | CORE | | + + + + + + | NRBC% | 0.7 (H) | 0.0 - 0.3 % | [facility] | | | | | | LABORATORY | | | | | | SERVICES, | | | | | | CORE | | + + + + + + | NRBC# | 0.11 (H) | 0.00 - 0.02 | [facility] | | | | | K/cu mm | LABORATORY | | | | | | SERVICES, | | | | | | CORE | | + + + + + + + + | Specimen | + + | Blood - Blood | + + + + + + + | Performing | Address | City/State/Zipcode | Phone Number | | Organization | | | | + + + + + | [facility] | [address] | [place] [address] | | | SERVICES, CORE | [address] | | | + + + + + MAGNESIUM, PLASMA (05/06/2014 3:14 AM PST) + +-------+ + + + | Component | Value | Ref Range | Performed | Pathologist | | | | | At | Signature | + +-------+ + + + | MAGNESIUM,P | 2.0 | 1.8 - 2.5 mg/dL | [facility] | | | LASMA | | | LABORATORY | | | | | | SERVICES, | | | | | | CORE | | + +-------+ + + + + + | Specimen | + + | Blood - Blood | + + + + + + + | Performing | Address | City/State/Zipcode | Phone Number | | Organization | | | | + + + + + | [facility] | [address] | [place] [address] | | | SERVICES, CORE | [address] | | | + + + + + RENAL FUNCTION SET (NA,K,CL,CO2,BUN,CREAT,GLUC,CA,PHOS,ALB ) (05/06/2014 3:14 AM PST) + + + + + + | Component | Value | Ref Range | Performed | Pathologist | | | | | At | Signature | + + + + + + | GLUCOSE, | 103 (H) | 60 - 99 mg/dL | [facility] | | | PLASMA | | | LABORATORY | | | (LAB) | | | SERVICES, | | | | | | CORE | | + + + + + + | BUN, PLASMA | 31 (H) | 6 - 20 mg/dL | [facility] | | | (LAB) | | | LABORATORY | | | | | | SERVICES, | | | | | | CORE | | + + + + + + | CREATININE | 0.51 (L) | 0.60 - 1.10 | [facility] | | | PLASMA | | mg/dL | LABORATORY | | | (LAB) | | | SERVICES, | | | | | | CORE | | + + + + + + | EGFR | >60 | >60 mL/min | [facility] | | | - | | | LABORATORY | | | [facility] | | | SERVICES, | | | | | | CORE | | + + + + + + | EGFR NON | >60 | >60 mL/min | [facility] | | | -[facility] | | | LABORATORY | | | RICAN | | | SERVICES, | | | | | | CORE | | + + + + + + | SODIUM, | 137 | 136 - 145 | [facility] | | | PLASMA | | mmol/L | LABORATORY | | | (LAB) | | | SERVICES, | | | | | | CORE | | + + + + + + | POTASSIUM, | 4.4 | 3.4 - 5.0 | [facility] | | | PLASMA | | mmol/L | LABORATORY | | | (LAB) | | | SERVICES, | | | | | | CORE | | + + + + + + | CHLORIDE, | 105 | 97 - 108 mmol/L | [facility] | | | PLASMA | | | LABORATORY | | | (LAB) | | | SERVICES, | | | | | | CORE | | + + + + + + | TOTAL CO2, | 26 | 21 - 32 mmol/L | [facility] | | | PLASMA | | | LABORATORY | | | (LAB) | | | SERVICES, | | | | | | CORE | | + + + + + + | CALCIUM, | 8.4 (L) | 8.6 - 10.2 | [facility] | | | PLASMA | | mg/dL | LABORATORY | | | (LAB) | | | SERVICES, | | | | | | CORE | | + + + + + + | ALBUMIN, | 1.8 (L) | 3.5 - 4.7 g/dL | [facility] | | | PLASMA | | | LABORATORY | | | (LAB) | | | SERVICES, | | | | | | CORE | | + + + + + + | PHOSPHORUS, | 2.8 | 2.4 - 4.7 mg/dL | [facility] | | | PLASMA | | | LABORATORY | | | (LAB) | | | SERVICES, | | | | | | CORE | | + + + + + + | POTASSIUM | No Hemo | | [facility] | | | CMNT | | | LABORATORY | | | | | | SERVICES, | | | | | | CORE | | + + + + + + | ANION GAP | 6 | mmol/L | [facility] | | | | | | LABORATORY | | | | | | SERVICES, | | | | | | CORE | | + + + + + + | ANION | 11 | 4 - 11 mmol/L | [facility] | | | GAP(ALB | | | LABORATORY | | | CORRECTED) | | | SERVICES, | | | | | | CORE | | + + + + + + + + | Specimen | + + | Blood - Blood | + + + + + | Narrative | Performed At | + + + | GFR is estimated using the MDRD equation recommended by the | [facility] | | National Kidney Disease Education Program. Estimated GFR | LABORATORY | | Interpretive Information: <60 mL/min/1.73 sq m | SERVICES, CORE | | Chronic Kidney Disease <15 mL/min/1.73 sq m | | | Kidney Failure Estimated GFR greater that 60 mL/min/1.73 sq m is of | | | limited clinical value. The MDRD equation is not valid in the | | | following situations: - Patients under 18 years of age - Severe | | | malnutrition or obesity - Vegetarian diet - Rapidly changing kidney | | | function | | + + + + + + + + | Performing | Address | City/State/Zipcode | Phone Number | | Organization | | | | + + + + + | [facility] | [address] | [place] [address] | | | SERVICES, CORE | [address] | | | + + + + + INR (05/06/2014 3:14 AM PST) + + + + + + | Component | Value | Ref Range | Performed | Pathologist | | | | | At | Signature | + + + + + + | INR | 1.59 (H) | 0.90 - 1.20 INR | [facility] | | | | | | LABORATORY | | | | | | SERVICES, | | | | | | CORE | | + + + + + + + + | Specimen | + + | Blood - Blood | + + + + + | Narrative | Performed At | + + + | INR Therapeutic ranges for full anticoagulation: INR for | [facility] | | Venous Thromboembolism (2.0 - 3.0) INR INR for | LABORATORY | | most patients with mech. valves (2.5 - 3.5) INR | SERVICES, CORE | + + + + + + + + | Performing | Address | City/State/Zipcode | Phone Number | | Organization | | | | + + + + + | [facility] | [id number] | [place] [address] | | | SERVICES, CORE | [address] | | | + + + + + CBC (HEMOGRAM) ONLY (05/05/2014 3:48 AM PST) + + + + + + | Component | Value | Ref Range | Performed | Pathologist | | | | | At | Signature | + + + + + + | WHITE CELL | 21.38 (H) | 4.40 - 11.00 | [facility] | | | COUNT | | K/cu mm | LABORATORY | | | | | | SERVICES, | | | | | | CORE | | + + + + + + | RED CELL | 3.06 (L) | 4.00 - 5.20 | [facility] | | | COUNT | | M/cu mm | LABORATORY | | | | | | SERVICES, | | | | | | CORE | | + + + + + + | HEMOGLOBIN | 9.5 (L) | 12.0 - 16.0 | [facility] | | | | | g/dL | LABORATORY | | | | | | SERVICES, | | | | | | CORE | | + + + + + + | HEMATOCRIT | 30.8 (L) | 36.0 - 46.0 % | [facility] | | | | | | LABORATORY | | | | | | SERVICES, | | | | | | CORE | | + + + + + + | MCV | 100.7 (H) | 80.0 - 96.0 fL | [facility] | | | | | | LABORATORY | | | | | | SERVICES, | | | | | | CORE | | + + + + + + | MCHC | 30.8 | 33.0 - 35.5 | [facility] | | | | | g/dL | LABORATORY | | | | | | SERVICES, | | | | | | CORE | | + + + + + + | RDW SD | 90.3 (H) | 35.1 - 46.3 fL | [facility] | | | | | | LABORATORY | | | | | | SERVICES, | | | | | | CORE | | + + + + + + | PLATELET | 276 | 150 - 400 K/cu | [facility] | | | COUNT | | mm | LABORATORY | | | | | | SERVICES, | | | | | | CORE | | + + + + + + | MPV | 11.6 | 9.7 - 12.3 fL | [facility] | | | | | | LABORATORY | | | | | | SERVICES, | | | | | | CORE | | + + + + + + | NRBC% | 1.1 (H) | 0.0 - 0.3 % | [facility] | | | | | | LABORATORY | | | | | | SERVICES, | | | | | | CORE | | + + + + + + | NRBC# | 0.24 (H) | 0.00 - 0.02 | [facility] | | | | | K/cu mm | LABORATORY | | | | | | SERVICES, | | | | | | CORE | | + + + + + + + + | Specimen | + + | Blood - Blood | + + + + + + + | Performing | Address | City/State/Zipcode | Phone Number | | Organization | | | | + + + + + | [facility] | [id number] | [place] [address] | | | SERVICES, CORE | [address] | | | + + + + + CBC (HEMOGRAM) ONLY (05/05/2014 3:48 AM PST) + + + + + + | Component | Value | Ref Range | Performed | Pathologist | | | | | At | Signature | + + + + + + | WHITE CELL | 21.64 (H) | 4.40 - 11.00 | [facility] | | | COUNT | | K/cu mm | LABORATORY | | | | | | SERVICES, | | | | | | CORE | | + + + + + + | RED CELL | 3.04 (L) | 4.00 - 5.20 | [facility] | | | COUNT | | M/cu mm | LABORATORY | | | | | | SERVICES, | | | | | | CORE | | + + + + + + | HEMOGLOBIN | 9.5 (L) | 12.0 - 16.0 | [facility] | | | | | g/dL | LABORATORY | | | | | | SERVICES, | | | | | | CORE | | + + + + + + | HEMATOCRIT | 30.8 (L) | 36.0 - 46.0 % | [facility] | | | | | | LABORATORY | | | | | | SERVICES, | | | | | | CORE | | + + + + + + | MCV | 101.3 (H) | 80.0 - 96.0 fL | [facility] | | | | | | LABORATORY | | | | | | SERVICES, | | | | | | CORE | | + + + + + + | MCHC | 30.8 | 33.0 - 35.5 | [facility] | | | | | g/dL | LABORATORY | | | | | | SERVICES, | | | | | | CORE | | + + + + + + | RDW SD | 89.7 (H) | 35.1 - 46.3 fL | [facility] | | | | | | LABORATORY | | | | | | SERVICES, | | | | | | CORE | | + + + + + + | PLATELET | 296 | 150 - 400 K/cu | [facility] | | | COUNT | | mm | LABORATORY | | | | | | SERVICES, | | | | | | CORE | | + + + + + + | MPV | 12.0 | 9.7 - 12.3 fL | [facility] | | | | | | LABORATORY | | | | | | SERVICES, | | | | | | CORE | | + + + + + + | NRBC% | 1.2 (H) | 0.0 - 0.3 % | [facility] | | | | | | LABORATORY | | | | | | SERVICES, | | | | | | CORE | | + + + + + + | NRBC# | 0.27 (H) | 0.00 - 0.02 | [facility] | | | | | K/cu mm | LABORATORY | | | | | | SERVICES, | | | | | | CORE | | + + + + + + + + | Specimen | + + | Blood - Blood | + + + + + + + | Performing | Address | City/State/Zipcode | Phone Number | | Organization | | | | + + + + + | [facility] | [address] | [place] [address] | | | [place], CORE | [address] | | | + + + + + MAGNESIUM, PLASMA (05/05/2014 3:48 AM PST) + +---------+ + + + | Component | Value | Ref Range | Performed | Pathologist | | | | | At | Signature | + +---------+ + + + | MAGNESIUM,P | 1.7 (L) | 1.8 - 2.5 mg/dL | [facility] | | | LASMA | | | LABORATORY | | | | | | SERVICES, | | | | | | CORE | | + +---------+ + + + + + | Specimen | + + | Blood - Blood | + + + + + + + | Performing | Address | City/State/Zipcode | Phone Number | | Organization | | | | + + + + + | [facility] | [address] | [place] [address] | | | SERVICES, CORE | [address] | | | + + + + + RENAL FUNCTION SET (NA,K,CL,CO2,BUN,CREAT,GLUC,CA,PHOS,ALB ) (05/05/2014 3:48 AM PST) + +---------+ + + + | Component | Value | Ref Range | Performed | Pathologist | | | | | At | Signature | + +---------+ + + + | GLUCOSE, | 102 (H) | 60 - 99 mg/dL | [facility] | | | PLASMA | | | LABORATORY | | | (LAB) | | | SERVICES, | | | | | | CORE | | + +---------+ + + + | BUN, PLASMA | 33 (H) | 6 - 20 mg/dL | [facility] | | | (LAB) | | | LABORATORY | | | | | | SERVICES, | | | | | | CORE | | + +---------+ + + + | CREATININE | 0.67 | 0.60 - 1.10 | [facility] | | | PLASMA | | mg/dL | LABORATORY | | | (LAB) | | | SERVICES, | | | | | | CORE | | + +---------+ + + + | EGFR | >60 | >60 mL/min | [facility] | | | - | | | LABORATORY | | | K[facility]Z | | | SERVICES, | | | | | | CORE | | + +---------+ + + + | EGFR NON | >60 | >60 mL/min | [facility] | | | -LUIS | | | LABORATORY | | | RICAN | | | SERVICES, | | | | | | CORE | | + +---------+ + + + | SODIUM, | 138 | 136 - 145 | [facility] | | | PLASMA | | mmol/L | LABORATORY | | | (LAB) | | | SERVICES, | | | | | | CORE | | + +---------+ + + + | POTASSIUM, | 3.9 | 3.4 - 5.0 | [facility] | | | PLASMA | | mmol/L | LABORATORY | | | (LAB) | | | SERVICES, | | | | | | CORE | | + +---------+ + + + | CHLORIDE, | 107 | 97 - 108 mmol/L | [facility] | | | PLASMA | | | LABORATORY | | | (LAB) | | | SERVICES, | | | | | | CORE | | + +---------+ + + + | TOTAL CO2, | 27 | 21 - 32 mmol/L | [facility] | | | PLASMA | | | LABORATORY | | | (LAB) | | | SERVICES, | | | | | | CORE | | + +---------+ + + + | CALCIUM, | 8.4 (L) | 8.6 - 10.2 | [facility] | | | PLASMA | | mg/dL | LABORATORY | | | (LAB) | | | SERVICES, | | | | | | CORE | | + +---------+ + + + | ALBUMIN, | 1.8 (L) | 3.5 - 4.7 g/dL | [facility] | | | PLASMA | | | LABORATORY | | | (LAB) | | | SERVICES, | | | | | | CORE | | + +---------+ + + + | PHOSPHORUS, | 2.4 | 2.4 - 4.7 mg/dL | [facility] | | | PLASMA | | | LABORATORY | | | (LAB) | | | SERVICES, | | | | | | CORE | | + +---------+ + + + | POTASSIUM | No Hemo | | [facility] | | | CMNT | | | LABORATORY | | | | | | SERVICES, | | | | | | CORE | | + +---------+ + + + | ANION GAP | 4 | mmol/L | [facility] | | | | | | LABORATORY | | | | | | SERVICES, | | | | | | CORE | | + +---------+ + + + | ANION | 9 | 4 - 11 mmol/L | [facility] | | | GAP(ALB | | | LABORATORY | | | CORRECTED) | | | SERVICES, | | | | | | CORE | | + +---------+ + + + + + | Specimen | + + | Blood - Blood | + + + + + | Narrative | Performed At | + + + | GFR is estimated using the MDRD equation recommended by the | [facility] | | National Kidney Disease Education Program. Estimated GFR | LABORATORY | | Interpretive Information: <60 mL/min/1.73 sq m | SERVICES, CORE | | Chronic Kidney Disease <15 mL/min/1.73 sq m | | | Kidney Failure Estimated GFR greater that 60 mL/min/1.73 sq m is of | | | limited clinical value. The MDRD equation is not valid in the | | | following situations: - Patients under 18 years of age - Severe | | | malnutrition or obesity - Vegetarian diet - Rapidly changing kidney | | | function | | + + + + + + + + | Performing | Address | City/State/Zipcode | Phone Number | | Organization | | | | + + + + + | [facility] | [address] | [place] [address] | | | SERVICES, CORE | [address] | | | + + + + + INR (05/05/2014 12:46 AM PST) + + + + + + | Component | Value | Ref Range | Performed | Pathologist | | | | | At | Signature | + + + + + + | INR | 1.61 (H) | 0.90 - 1.20 INR | [facility] | | | | | | LABORATORY | | | | | | SERVICES, | | | | | | CORE | | + + + + + + + + | Specimen | + + | Blood - Blood | + + + + + | Narrative | Performed At | + + + | INR Therapeutic ranges for full anticoagulation: INR for | [facility] | | Venous Thromboembolism (2.0 - 3.0) INR INR for | LABORATORY | | most patients with mech. valves (2.5 - 3.5) INR | SERVICES, CORE | + + + + + + + + | Performing | Address | City/State/Zipcode | Phone Number | | Organization | | | | + + + + + | [facility] | [address] | [place] [address] | | | SERVICES, CORE | [address] | | | + + + + + WELCOME TO [employer] (VIDEO) (05/04/2014 2:18 PM PST) + +--------+ + + + | Component | Value | Ref Range | Performed | Pathologist | | | | | At | Signature | + +--------+ + + + | VIDEO | VIEWED | | [facility] | | | VIEWED | | | [facility] | | | | | | [facility]S | | + +--------+ + + + + + | Specimen | + + | | + + + + + + + | Performing | Address | City/State/Zipcode | Phone Number | | Organization | | | | + + + + + | [facility] | [address] | [place] [address] | | | [facility] | [address] | | | + + + + + C. DIFFICILE TOXIN (05/04/2014 12:50 PM PST) + + + + + + | Component | Value | Ref Range | Performed | Pathologist | | | | | At | Signature | + + + + + + | C.DIFFICILE | Negative | Negative | [facility] | | | TOXIN | | | LABORATORY | | | | | | SERVICES, | | | | | | CORE | | + + + + + + + + | Specimen | + + | Stool - Rectum | + + + + + + + | Performing | Address | City/State/Zipcode | Phone Number | | Organization | | | | + + + + + | [facility] | [address] | [place] [address] | | | SERVICES, CORE | [address] | | | + + + + + BLOOD GASES, VENOUS - LAB (05/04/2014 8:10 AM PST) + +-------+ + + + | Component | Value | Ref Range | Performed | Pathologist | | | | | At | Signature | + +-------+ + + + | PAT TEMP | 37.1 | Degree C | [facility] | | | VENOUS | | | LABORATORY | | | | | | SERVICES, | | | | | | CORE | | + +-------+ + + + | FIO2 VENOUS | 3.00 | | [facility] | | | | | | LABORATORY | | | | | | SERVICES, | | | | | | CORE | | + +-------+ + + + | PH VENOUS | 7.42 | 7.35 - 7.45 | [facility] | | | | | | LABORATORY | | | | | | SERVICES, | | | | | | CORE | | + +-------+ + + + | PCO2 VENOUS | 40 | 35 - 50 mmHg | [facility] | | | | | | LABORATORY | | | | | | SERVICES, | | | | | | CORE | | + +-------+ + + + | PO2 VENOUS | 35 | 30 - 55 mmHg | [facility] | | | | | | LABORATORY | | | | | | SERVICES, | | | | | | CORE | | + +-------+ + + + | HCO3 VENOUS | 26 | 22 - 28 mmol/L | [facility] | | | | | | LABORATORY | | | | | | SERVICES, | | | | | | CORE | | + +-------+ + + + | BASE EXCESS | 1.9 | | [facility] | | | VENOUS | | | LABORATORY | | | | | | SERVICES, | | | | | | CORE | | + +-------+ + + + | O2 SAT, | 68.9 | % | [facility] | | | VENOUS | | | LABORATORY | | | | | | SERVICES, | | | | | | CORE | | + +-------+ + + + | TOTAL CO2 | 27 | 23 - 29 mmol/L | [facility] | | | VENOUS | | | LABORATORY | | | | | | SERVICES, | | | | | | CORE | | + +-------+ + + + + + | Specimen | + + | Blood - Blood | + + + + + + + | Performing | Address | City/State/Zipcode | Phone Number | | Organization | | | | + + + + + | [facility] | [address] | [place] [address] | | | SERVICES, [facility] | [address] | | | + + + + + X-RAY CHEST 1 VIEW (05/04/2014 8:06 AM PST) + + + + + + | Component | Value | Ref Range | Performed | Pathologist | | | | | At | Signature | + + + + + + | CHEST, 1 | STUDY: CHEST 1 VIEW | | | | | VIEW | 05/04/14 08:06:00 | | | | | | COMPARISON: 05/02/14. | | | | | | HISTORY: Evaluate | | | | | | pulmonary edema and | | | | | | effusions. FINDINGS: | | | | | | Support equipment is | | | | | | unchanged. There is | | | | | | decreased diffuse | | | | | | groundglassopacification | | | | | | and vascular | | | | | | indistinctness. | | | | | | Bibasilar patchy | | | | | | consolidations | | | | | | andcentral airway | | | | | | thickening have also | | | | | | decreased. Small | | | | | | bilateral | | | | | | pleuraleffusions are | | | | | | mildly decreased. The | | | | | | cardiac and mediastinal | | | | | | borders are stable.No | | | | | | pneumothorax is | | | | | | observed. IMPRESSION: | | | | | | Decreased hydrostatic | | | | | | pulmonary edema and | | | | | | decreased bilateral | | | | | | small pleuraleffusions. | | | | | | Decreased patchy | | | | | | consolidations and | | | | | | airway thickening | | | | | | compatible with | | | | | | decreasedaspiration and | | | | | | retained secretions. | | | | | | Attending Radiologists: | | | | | | TANIA CRANE, | | | | | | MDAuthor: TANIA | | | | | | MD ROSA MARIA I have | | | | | | personally viewed this | | | | | | procedure/exam, reviewed | | | | | | this report, and | | | | | | madechanges to it where | | | | | | appropriate. | | | | | | Final/Electronically | | | | | | signed / TANIA | | | | | | ROSA MARIA 05/04/2014 | | | | | | 9:27 AM | | | | + + + + + + + + | Specimen | + + | | + + + +---------+ + + | Performing | Address | City/State/Zipcode | Phone Number | | Organization | | | | + +---------+ + + | [facility] | | | | [facility] | | | | + +---------+ + + CBC (HEMOGRAM) ONLY (05/04/2014 3:30 AM PST) + + + + + + | Component | Value | Ref Range | Performed | Pathologist | | | | | At | Signature | + + + + + + | WHITE CELL | 24.21 (H) | 4.40 - 11.00 | [facility] | | | COUNT | | K/cu mm | LABORATORY | | | | | | SERVICES, | | | | | | CORE | | + + + + + + | RED CELL | 2.99 (L) | 4.00 - 5.20 | [facility] | | | COUNT | | M/cu mm | LABORATORY | | | | | | SERVICES, | | | | | | CORE | | + + + + + + | HEMOGLOBIN | 9.3 (L) | 12.0 - 16.0 | [facility] | | | | | g/dL | LABORATORY | | | | | | SERVICES, | | | | | | CORE | | + + + + + + | HEMATOCRIT | 30.1 (L) | 36.0 - 46.0 % | [facility] | | | | | | LABORATORY | | | | | | SERVICES, | | | | | | CORE | | + + + + + + | MCV | 100.7 (H) | 80.0 - 96.0 fL | [facility] | | | | | | LABORATORY | | | | | | SERVICES, | | | | | | CORE | | + + + + + + | MCHC | 30.9 | 33.0 - 35.5 | [facility] | | | | | g/dL | LABORATORY | | | | | | SERVICES, | | | | | | CORE | | + + + + + + | RDW SD | 72.9 (H) | 35.1 - 46.3 fL | [facility] | | | | | | LABORATORY | | | | | | SERVICES, | | | | | | CORE | | + + + + + + | PLATELET | 251 | 150 - 400 K/cu | [facility] | | | COUNT | | mm | LABORATORY | | | | | | SERVICES, | | | | | | CORE | | + + + + + + | MPV | 12.8 (H) | 9.7 - 12.3 fL | [facility] | | | | | | LABORATORY | | | | | | SERVICES, | | | | | | CORE | | + + + + + + | NRBC% | 3.3 (H) | 0.0 - 0.3 % | [facility] | | | | | | LABORATORY | | | | | | SERVICES, | | | | | | CORE | | + + + + + + | NRBC# | 0.80 (H) | 0.00 - 0.02 | [facility] | | | | | K/cu mm | LABORATORY | | | | | | SERVICES, | | | | | | CORE | | + + + + + + + + | Specimen | + + | Blood - Blood | + + + + + + + | Performing | Address | City/State/Zipcode | Phone Number | | Organization | | | | + + + + + | [facility] | [address] | [place] [address] | | | SERVICES, CORE | [address] | | | + + + + + MAGNESIUM, PLASMA (05/04/2014 3:30 AM PST) + +---------+ + + + | Component | Value | Ref Range | Performed | Pathologist | | | | | At | Signature | + +---------+ + + + | MAGNESIUM,P | 1.7 (L) | 1.8 - 2.5 mg/dL | [facility] | | | LASMA | | | LABORATORY | | | | | | SERVICES, | | | | | | CORE | | + +---------+ + + + + + | Specimen | + + | Blood - Blood | + + + + + + + | Performing | Address | City/State/Zipcode | Phone Number | | Organization | | | | + + + + + | [facility] | [address] | [place] [address] | | | SERVICES, CORE | [address] | | | + + + + + RENAL FUNCTION SET (NA,K,CL,CO2,BUN,CREAT,GLUC,CA,PHOS,ALB ) (05/04/2014 3:30 AM PST) + +---------+ + + + | Component | Value | Ref Range | Performed | Pathologist | | | | | At | Signature | + +---------+ + + + | GLUCOSE, | 106 (H) | 60 - 99 mg/dL | [facility] | | | PLASMA | | | LABORATORY | | | (LAB) | | | SERVICES, | | | | | | CORE | | + +---------+ + + + | BUN, PLASMA | 36 (H) | 6 - 20 mg/dL | [facility] | | | (LAB) | | | LABORATORY | | | | | | SERVICES, | | | | | | CORE | | + +---------+ + + + | CREATININE | 0.76 | 0.60 - 1.10 | [facility] | | | PLASMA | | mg/dL | LABORATORY | | | (LAB) | | | SERVICES, | | | | | | CORE | | + +---------+ + + + | EGFR | >60 | >60 mL/min | [facility] | | | - | | | LABORATORY | | | KYRGYZ | | | SERVICES, | | | | | | CORE | | + +---------+ + + + | EGFR NON | >60 | >60 mL/min | [facility] | | | -LUIS | | | LABORATORY | | | RICAN | | | SERVICES, | | | | | | CORE | | + +---------+ + + + | SODIUM, | 140 | 136 - 145 | [facility] | | | PLASMA | | mmol/L | LABORATORY | | | (LAB) | | | SERVICES, | | | | | | CORE | | + +---------+ + + + | POTASSIUM, | 3.7 | 3.4 - 5.0 | [facility] | | | PLASMA | | mmol/L | LABORATORY | | | (LAB) | | | SERVICES, | | | | | | CORE | | + +---------+ + + + | CHLORIDE, | 106 | 97 - 108 mmol/L | [facility] | | | PLASMA | | | LABORATORY | | | (LAB) | | | SERVICES, | | | | | | CORE | | + +---------+ + + + | TOTAL CO2, | 28 | 21 - 32 mmol/L | [facility] | | | PLASMA | | | LABORATORY | | | (LAB) | | | SERVICES, | | | | | | CORE | | + +---------+ + + + | CALCIUM, | 8.5 (L) | 8.6 - 10.2 | [facility] | | | PLASMA | | mg/dL | LABORATORY | | | (LAB) | | | SERVICES, | | | | | | CORE | | + +---------+ + + + | ALBUMIN, | 1.7 (L) | 3.5 - 4.7 g/dL | [facility] | | | PLASMA | | | LABORATORY | | | (LAB) | | | SERVICES, | | | | | | CORE | | + +---------+ + + + | PHOSPHORUS, | 2.8 | 2.4 - 4.7 mg/dL | [facility] | | | PLASMA | | | LABORATORY | | | (LAB) | | | SERVICES, | | | | | | CORE | | + +---------+ + + + | POTASSIUM | No Hemo | | [facility] | | | CMNT | | | LABORATORY | | | | | | SERVICES, | | | | | | CORE | | + +---------+ + + + | ANION GAP | 6 | mmol/L | [facility] | | | | | | LABORATORY | | | | | | SERVICES, | | | | | | CORE | | + +---------+ + + + | ANION | 11 | 4 - 11 mmol/L | [facility] | | | GAP(ALB | | | LABORATORY | | | CORRECTED) | | | SERVICES, | | | | | | CORE | | + +---------+ + + + + + | Specimen | + + | Blood - Blood | + + + + + | Narrative | Performed At | + + + | GFR is estimated using the MDRD equation recommended by the | [facility] | | National Kidney Disease Education Program. Estimated GFR | LABORATORY | | Interpretive Information: <60 mL/min/1.73 sq m | SERVICES, CORE | | Chronic Kidney Disease <15 mL/min/1.73 sq m | | | Kidney Failure Estimated GFR greater that 60 mL/min/1.73 sq m is of | | | limited clinical value. The MDRD equation is not valid in the | | | following situations: - Patients under 18 years of age - Severe | | | malnutrition or obesity - Vegetarian diet - Rapidly changing kidney | | | function | | + + + + + + + + | Performing | Address | City/State/Zipcode | Phone Number | | Organization | | | | + + + + + | [facility] | [address] | [place] [address] | | | SERVICES, CORE | [address] | | | + + + + + INR (05/04/2014 3:30 AM PST) + + + + + + | Component | Value | Ref Range | Performed | Pathologist | | | | | At | Signature | + + + + + + | INR | 1.51 (H) | 0.90 - 1.20 INR | [facility] | | | | | | LABORATORY | | | | | | SERVICES, | | | | | | CORE | | + + + + + + + + | Specimen | + + | Blood - Blood | + + + + + | Narrative | Performed At | + + + | INR Therapeutic ranges for full anticoagulation: INR for | [facility] | | Venous Thromboembolism (2.0 - 3.0) INR INR for | LABORATORY | | most patients with mech. valves (2.5 - 3.5) INR | SERVICES, CORE | + + + + + + + + | Performing | Address | City/State/Zipcode | Phone Number | | Organization | | | | + + + + + | [facility] | [address] | [place] [address] | | | SERVICES, CORE | [address] | | | + + + + + BLOOD GASES, ARTERIAL - LAB (05/03/2014 9:03 PM PST) + + + + + + | Component | Value | Ref Range | Performed | Pathologist | | | | | At | Signature | + + + + + + | PAT TEMP | 37.1 | Degree C | [facility] | | | ARTERIAL | | | LABORATORY | | | | | | SERVICES, | | | | | | CORE | | + + + + + + | FIO2 | Comment: 2L | | [facility] | | | ARTERIAL | | | LABORATORY | | | | | | SERVICES, | | | | | | CORE | | + + + + + + | PH ARTERIAL | 7.47 (H) | 7.37 - 7.44 | [facility] | | | | | | LABORATORY | | | | | | SERVICES, | | | | | | CORE | | + + + + + + | PCO2 | 37 | 32 - 43 mmHg | [facility] | | | ARTERIAL | | | LABORATORY | | | | | | SERVICES, | | | | | | CORE | | + + + + + + | PO2 | 59 (L) | 72 - 104 mmHg | [facility] | | | ARTERIAL | | | LABORATORY | | | | | | SERVICES, | | | | | | CORE | | + + + + + + | HCO3 | 26 | 21 - 28 mmol/L | [facility] | | | ARTERIAL | | | LABORATORY | | | | | | SERVICES, | | | | | | CORE | | + + + + + + | TOTAL CO2 | 28 | 22 - 28 mmol/L | [facility] | | | ARTERIAL | | | LABORATORY | | | | | | SERVICES, | | | | | | CORE | | + + + + + + | BASE EXCESS | 3.0 | | [facility] | | | ARTERIAL | | | LABORATORY | | | | | | SERVICES, | | | | | | CORE | | + + + + + + | O2 SAT, | 94.0 | 92.0 - 98.0 | [facility] | | | ARTERIAL | | | LABORATORY | | | | | | SERVICES, | | | | | | CORE | | + + + + + + | PAO2/FIO2 | | >300 mmHg | [facility] | | | RATIO | | | LABORATORY | | | | | | SERVICES, | | | | | | CORE | | + + + + + + + + | Specimen | + + | Blood - Blood | + + + + + + + | Performing | Address | City/State/Zipcode | Phone Number | | Organization | | | | + + + + + | [facility] | [address] | [place] [address] | | | SERVICES, CORE | [address] | | | + + + + + UAZAFARICK ONLY (05/03/2014 8:47 PM PST) + + + + + + | Component | Value | Ref Range | Performed | Pathologist | | | | | At | Signature | + + + + + + | COLOR(UR) | Yellow | | [facility] | | | | | | LABORATORY | | | | | | SERVICES, | | | | | | CORE | | + + + + + + | APPEARANCE | Clear | | [facility] | | | | | | LABORATORY | | | | | | SERVICES, | | | | | | CORE | | + + + + + + | GLUCOSE(UR) | Negative | Negative, 50.0 | [facility] | | | | | mg/dL | LABORATORY | | | | | | SERVICES, | | | | | | CORE | | + + + + + + | PROTEIN(LAB | Negative | Negative, 30.0 | [facility] | | | ) | | mg/dL | LABORATORY | | | | | | SERVICES, | | | | | | CORE | | + + + + + + | BILIRUBIN | Negative | Negative | [facility] | | | | | | LABORATORY | | | | | | SERVICES, | | | | | | CORE | | + + + + + + | UROBILINOGE | <2.0 | <2.0 mg/dL | [facility] | | | N | | | LABORATORY | | | | | | SERVICES, | | | | | | CORE | | + + + + + + | PH(UR) | 8.0 | 5.0 - 8.0 | [facility] | | | | | | LABORATORY | | | | | | SERVICES, | | | | | | CORE | | + + + + + + | BLOOD | Negative | Negative | [facility] | | | | | | LABORATORY | | | | | | SERVICES, | | | | | | CORE | | + + + + + + | KETONES | Negative | Negative mg/dL | [facility] | | | | | | LABORATORY | | | | | | SERVICES, | | | | | | CORE | | + + + + + + | NITRITES | Negative | Negative | [facility] | | | | | | LABORATORY | | | | | | SERVICES, | | | | | | CORE | | + + + + + + | LEUKOCYTE | Negative | Negative | [facility] | | | ESTERASE | | | LABORATORY | | | | | | SERVICES, | | | | | | CORE | | + + + + + + | SPECIFIC | 1.010 | 1.005 - 1.030 | [facility] | | | GRAVITY | | | LABORATORY | | | | | | SERVICES, | | | | | | CORE | | + + + + + + + + | Specimen | + + | Urine - Urine | + + + + + + + | Performing | Address | City/State/Zipcode | Phone Number | | Organization | | | | + + + + + | [facility] | [address] | [place] [address] | | | SERVICES, CORE | [address] | | | + + + + + URINE, MICROSCOPIC EXAM (05/03/2014 8:47 PM PST) + +-------+ + + + | Component | Value | Ref Range | Performed | Pathologist | | | | | At | Signature | + +-------+ + + + | RED CELLS | 4 (H) | 0 - 3 /hpf | [facility] | | | | | | LABORATORY | | | | | | SERVICES, | | | | | | CORE | | + +-------+ + + + | WHITE CELLS | 4 | 0 - 5 /hpf | [facility] | | | | | | LABORATORY | | | | | | SERVICES, | | | | | | CORE | | + +-------+ + + + | BACTERIA | None | None /hpf | [facility] | | | | | | LABORATORY | | | | | | SERVICES, | | | | | | CORE | | + +-------+ + + + | YEAST (LAB) | None | None /hpf | [facility] | | | | | | LABORATORY | | | | | | SERVICES, | | | | | | CORE | | + +-------+ + + + | SQUAMOUS | None | None /hpf | [facility] | | | EPITHELIAL | | | LABORATORY | | | | | | SERVICES, | | | | | | CORE | | + +-------+ + + + | MUCOUS | None | None /hpf | [facility] | | | | | | LABORATORY | | | | | | SERVICES, | | | | | | CORE | | + +-------+ + + + | TRICHOMONAS | None | None /hpf | [facility] | | | | | | LABORATORY | | | | | | SERVICES, | | | | | | CORE | | + +-------+ + + + | NON-SQUAMOU | None | None /hpf | [facility] | | | S EPITH | | | LABORATORY | | | | | | SERVICES, | | | | | | CORE | | + +-------+ + + + | HYALINE | 0 | 0 - 2 /lpf | [facility] | | | CASTS | | | LABORATORY | | | | | | SERVICES, | | | | | | CORE | | + +-------+ + + + | GRANULAR | 0 | 0 - 2 /lpf | [facility] | | | CASTS | | | LABORATORY | | | | | | SERVICES, | | | | | | CORE | | + +-------+ + + + | CELLULAR | 0 | <=0 /lpf | [facility] | | | CASTS | | | LABORATORY | | | | | | SERVICES, | | | | | | CORE | | + +-------+ + + + | TRIPLE P04 | None | None /hpf | [facility] | | | CRYSTALS | | | LABORATORY | | | | | | SERVICES, | | | | | | CORE | | + +-------+ + + + | CALCIUM | None | None /hpf | [facility] | | | OXALATE | | | LABORATORY | | | VIJAY | | | SERVICES, | | | | | | CORE | | + +-------+ + + + | URIC ACID | None | None /hpf | [facility] | | | [facility] | | | LABORATORY | | | | | | SERVICES, | | | | | | CORE | | + +-------+ + + + | AMORPHOUS | None | None /hpf | [facility] | | | [facility] | | | LABORATORY | | | | | | SERVICES, | | | | | | CORE | | + +-------+ + + + + + | Specimen | + + | Urine - Urine | + + + + + + + | Performing | Address | City/State/Zipcode | Phone Number | | Organization | | | | + + + + + | [facility] | [address] | [place] [address] | | | SERVICES, CORE | [address] | | | + + + + + URINE SCREEN FOR CULTURE (05/03/2014 8:47 PM PST) + + + + + + | Component | Value | Ref Range | Performed | Pathologist | | | | | At | Signature | + + + + + + | URINE | Negative | Negative | [facility] | | | SCREEN FOR | | | LABORATORY | | | CULTURE | | | SERVICES, | | | | | | CORE | | + + + + + + + + | Specimen | + + | Urine - Urine | + + + + + | Narrative | Performed At | + + + | Culture Screen Negative. Culture not indicated. | [facility] | | | LABORATORY | | | SERVICES, CORE | + + + + + + + + | Performing | Address | City/State/Zipcode | Phone Number | | Organization | | | | + + + + + | [facility] | [address] | [place] [address] | | | SERVICES, CORE | [address] | | | + + + + + CAPILLARY BLOOD GLUCOSE (NO CHG), POC (05/03/2014 6:53 PM PST) + +---------+ + + + | Component | Value | Ref Range | Performed | Pathologist | | | | | At | Signature | + +---------+ + + + | BLOOD | 132 (H) | 60 - 99 mg/dL | [facility] - | | | GLUCOSE, | | | [facility] | | | POC | | | [facility] | | | | | | OF CARE | | | | | | TESTS | | + +---------+ + + + + + | Specimen | + + | | + + + + + + + | Performing | Address | City/State/Zipcode | Phone Number | | Organization | | | | + + + + + | [facility] | [address] | [place], [place] | | | [facility] | [address] | [address] | | | TESTS | | | | + + + + + VASC LAB PORTABLE VENOUS DUPLEX LOWER EXTREMITY BILATERAL COMPLETE (05/03/2014 11:24 AM PST ) + + + + + + | Component | Value | Ref Range | Performed | Pathologist | | | | | At | Signature | + + + + + + | [facility] LAB | LOWER EXTREMITY VENOUS | | | | | PORTABLE | STUDY: 05/03/2014 | | | | | VENOUS | Dictated 05/03/2014 | | | | | DUPLEX | INDICATION: Pain. The | | | | | LOWER | duplex scanner was used | | | | | EXTREMITY | to examine the deep and | | | | | BILATERAL | superficial veins of | | | | | COMPLETE | theright and left lower | | | | | | extremities. The veins | | | | | | are patent with normal | | | | | | flows andresponses to | | | | | | augmentation and | | | | | | compression maneuvers. | | | | | | No thrombus is noted. | | | | | | Inthe left groin, | | | | | | there is an anechoic | | | | | | nonvascular structure | | | | | | measuringapproximately | | | | | | 3.49 x 2.06 cm. | | | | | | IMPRESSION: A normal | | | | | | venous examination of | | | | | | the lower extremities. | | | | | | No evidence of | | | | | | venousthrombosis. | | | | | | There is a | | | | | | nonvascularized | | | | | | structure in the left | | | | | | groin withultrasound | | | | | | characteristics | | | | | | consistent with a | | | | | | hematoma. Clinical | | | | | | correlation issuggested. | | | | | | END IMPRESSION: | | | | | | Attending Radiologists: | | | | | | ,Author: MIRELA | | | | | | MD DAMIAN I have | | | | | | personally viewed this | | | | | | procedure/exam, reviewed | | | | | | this report, and | | | | | | madechanges to it where | | | | | | appropriate. | | | | | | Final/Electronically | | | | | | signed / MIRELA | | | | | | DAMIAN Preliminary / | | | | | | Kirstie Latif | | | | + + + + + + + + | Specimen | + + | | + + + +---------+ + + | Performing | Address | City/State/Zipcode | Phone Number | | Organization | | | | + +---------+ + + | [facility] | | | | | RADIOLOGY | | | | + +---------+ + + CBC (HEMOGRAM) ONLY (05/03/2014 3:59 AM PST) + + + + + + | Component | Value | Ref Range | Performed | Pathologist | | | | | At | Signature | + + + + + + | WHITE CELL | 22.17 (H) | 4.40 - 11.00 | [facility] | | | COUNT | | K/cu mm | LABORATORY | | | | | | SERVICES, | | | | | | CORE | | + + + + + + | RED CELL | 2.97 (L) | 4.00 - 5.20 | [facility] | | | COUNT | | M/cu mm | LABORATORY | | | | | | SERVICES, | | | | | | CORE | | + + + + + + | HEMOGLOBIN | 9.1 (L) | 12.0 - 16.0 | [facility] | | | | | g/dL | LABORATORY | | | | | | SERVICES, | | | | | | CORE | | + + + + + + | HEMATOCRIT | 29.5 (L) | 36.0 - 46.0 % | [facility] | | | | | | LABORATORY | | | | | | SERVICES, | | | | | | CORE | | + + + + + + | MCV | 99.3 (H) | 80.0 - 96.0 fL | [facility] | | | | | | LABORATORY | | | | | | SERVICES, | | | | | | CORE | | + + + + + + | MCHC | 30.8 | 33.0 - 35.5 | [facility] | | | | | g/dL | LABORATORY | | | | | | SERVICES, | | | | | | CORE | | + + + + + + | RDW SD | 60.9 (H) | 35.1 - 46.3 fL | [facility] | | | | | | LABORATORY | | | | | | SERVICES, | | | | | | CORE | | + + + + + + | PLATELET | 203 | 150 - 400 K/cu | [facility] | | | COUNT | | mm | LABORATORY | | | | | | SERVICES, | | | | | | CORE | | + + + + + + | MPV | 13.1 (H) | 9.7 - 12.3 fL | [facility] | | | | | | LABORATORY | | | | | | SERVICES, | | | | | | CORE | | + + + + + + | NRBC% | 9.6 (H) | 0.0 - 0.3 % | [facility] | | | | | | LABORATORY | | | | | | SERVICES, | | | | | | CORE | | + + + + + + | NRBC# | 2.12 (H) | 0.00 - 0.02 | [facility] | | | | | K/cu mm | LABORATORY | | | | | | SERVICES, | | | | | | CORE | | + + + + + + + + | Specimen | + + | Blood - Blood | + + + + + + + | Performing | Address | City/State/Zipcode | Phone Number | | Organization | | | | + + + + + | [facility] | [address] | [place] [address] | | | SERVICES, CORE | [address] | | | + + + + + MAGNESIUM, PLASMA (05/03/2014 3:59 AM PST) + +-------+ + + + | Component | Value | Ref Range | Performed | Pathologist | | | | | At | Signature | + +-------+ + + + | MAGNESIUM,P | 2.0 | 1.8 - 2.5 mg/dL | [facility] | | | LASMA | | | LABORATORY | | | | | | SERVICES, | | | | | | CORE | | + +-------+ + + + + + | Specimen | + + | Blood - Blood | + + + + + + + | Performing | Address | City/State/Zipcode | Phone Number | | Organization | | | | + + + + + | [facility] | [address] | [place] [address] | | | SERVICES, CORE | [address] | | | + + + + + RENAL FUNCTION SET (NA,K,CL,CO2,BUN,CREAT,GLUC,CA,PHOS,ALB ) (05/03/2014 3:59 AM PST) + +---------+ + + + | Component | Value | Ref Range | Performed | Pathologist | | | | | At | Signature | + +---------+ + + + | GLUCOSE, | 86 | 60 - 99 mg/dL | [facility] | | | PLASMA | | | LABORATORY | | | (LAB) | | | SERVICES, | | | | | | CORE | | + +---------+ + + + | BUN, PLASMA | 34 (H) | 6 - 20 mg/dL | [facility] | | | (LAB) | | | LABORATORY | | | | | | SERVICES, | | | | | | CORE | | + +---------+ + + + | CREATININE | 0.83 | 0.60 - 1.10 | [facility] | | | PLASMA | | mg/dL | LABORATORY | | | (LAB) | | | SERVICES, | | | | | | CORE | | + +---------+ + + + | EGFR | >60 | >60 mL/min | [facility] | | | - | | | LABORATORY | | | KYRGYZ | | | SERVICES, | | | | | | CORE | | + +---------+ + + + | EGFR NON | >60 | >60 mL/min | [facility] | | | -LUIS | | | LABORATORY | | | RICAN | | | SERVICES, | | | | | | CORE | | + +---------+ + + + | SODIUM, | 140 | 136 - 145 | [facility] | | | PLASMA | | mmol/L | LABORATORY | | | (LAB) | | | SERVICES, | | | | | | CORE | | + +---------+ + + + | POTASSIUM, | 3.5 | 3.4 - 5.0 | [facility] | | | PLASMA | | mmol/L | LABORATORY | | | (LAB) | | | SERVICES, | | | | | | CORE | | + +---------+ + + + | CHLORIDE, | 105 | 97 - 108 mmol/L | [facility] | | | PLASMA | | | LABORATORY | | | (LAB) | | | SERVICES, | | | | | | CORE | | + +---------+ + + + | TOTAL CO2, | 27 | 21 - 32 mmol/L | [facility] | | | PLASMA | | | LABORATORY | | | (LAB) | | | SERVICES, | | | | | | CORE | | + +---------+ + + + | CALCIUM, | 8.6 | 8.6 - 10.2 | [facility] | | | PLASMA | | mg/dL | LABORATORY | | | (LAB) | | | SERVICES, | | | | | | CORE | | + +---------+ + + + | ALBUMIN, | 1.8 (L) | 3.5 - 4.7 g/dL | [facility] | | | PLASMA | | | LABORATORY | | | (LAB) | | | SERVICES, | | | | | | CORE | | + +---------+ + + + | PHOSPHORUS, | 2.7 | 2.4 - 4.7 mg/dL | [facility] | | | PLASMA | | | LABORATORY | | | (LAB) | | | SERVICES, | | | | | | CORE | | + +---------+ + + + | POTASSIUM | Sl Hemo | | [facility] | | | CMNT | | | LABORATORY | | | | | | SERVICES, | | | | | | CORE | | + +---------+ + + + | ANION GAP | 8 | mmol/L | [facility] | | | | | | LABORATORY | | | | | | SERVICES, | | | | | | CORE | | + +---------+ + + + | ANION | 13 (H) | 4 - 11 mmol/L | [facility] | | | GAP(ALB | | | LABORATORY | | | CORRECTED) | | | SERVICES, | | | | | | CORE | | + +---------+ + + + + + | Specimen | + + | Blood - Blood | + + + + + | Narrative | Performed At | + + + | Sample hemolyzed. Results for K, Total Bili, Direct Bili, AST, | [facility] | | LDH, or HDL may be inaccurate. Refer to comment under test result. | LABORATORY | | GFR is estimated using the MDRD equation recommended by the National | SERVICES, CORE | | Kidney Disease Education Program. Estimated GFR Interpretive | | | Information: <60 mL/min/1.73 sq m Chronic Kidney | | | Disease <15 mL/min/1.73 sq m Kidney Failure | | | Estimated GFR greater that 60 mL/min/1.73 sq m is of limited clinical | | | value. The MDRD equation is not valid in the following situations: | | | - Patients under 18 years of age - Severe malnutrition or obesity | | | - Vegetarian diet - Rapidly changing kidney function | | + + + + + + + + | Performing | Address | City/State/Zipcode | Phone Number | | Organization | | | | + + + + + | [facility] | [address] | [place] [address] | | | SERVICES, CORE | [address] | | | + + + + + INR (05/03/2014 3:59 AM PST) + + + + + + | Component | Value | Ref Range | Performed | Pathologist | | | | | At | Signature | + + + + + + | INR | 1.33 (H) | 0.90 - 1.20 INR | [facility] | | | | | | LABORATORY | | | | | | SERVICES, | | | | | | CORE | | + + + + + + + + | Specimen | + + | Blood - Blood | + + + + + | Narrative | Performed At | + + + | INR Therapeutic ranges for full anticoagulation: INR for | [facility] | | Venous Thromboembolism (2.0 - 3.0) INR INR for | LABORATORY | | most patients with mech. valves (2.5 - 3.5) INR | SERVICES, CORE | + + + + + + + + | Performing | Address | City/State/Zipcode | Phone Number | | Organization | | | | + + + + + | [facility] | [address] | [place] [address] | | | SERVICES, CORE | [address] | | | + + + + + MAGNESIUM, PLASMA (05/02/2014 10:34 PM PST) + +-------+ + + + | Component | Value | Ref Range | Performed | Pathologist | | | | | At | Signature | + +-------+ + + + | MAGNESIUM,P | 2.0 | 1.8 - 2.5 mg/dL | [facility] | | | LASMA | | | LABORATORY | | | | | | SERVICES, | | | | | | CORE | | + +-------+ + + + + + | Specimen | + + | Blood - Blood | + + + + + + + | Performing | Address | City/State/Zipcode | Phone Number | | Organization | | | | + + + + + | [facility] | [address] | [place] [address] | | | ARON, JANELL | [address] | | | + + + + + RENAL FUNCTION SET (NA,K,CL,CO2,BUN,CREAT,GLUC,CA,PHOS,ALB ) (05/02/2014 10:34 PM PST) + +---------+ + + + | Component | Value | Ref Range | Performed | Pathologist | | | | | At | Signature | + +---------+ + + + | GLUCOSE, | 117 (H) | 60 - 99 mg/dL | [facility] | | | PLASMA | | | LABORATORY | | | (LAB) | | | SERVICES, | | | | | | CORE | | + +---------+ + + + | BUN, PLASMA | 34 (H) | 6 - 20 mg/dL | [facility] | | | (LAB) | | | LABORATORY | | | | | | SERVICES, | | | | | | CORE | | + +---------+ + + + | CREATININE | 0.75 | 0.60 - 1.10 | [facility] | | | PLASMA | | mg/dL | LABORATORY | | | (LAB) | | | SERVICES, | | | | | | CORE | | + +---------+ + + + | EGFR | >60 | >60 mL/min | [facility] | | | - | | | LABORATORY | | | KYRGYZ | | | SERVICES, | | | | | | CORE | | + +---------+ + + + | EGFR NON | >60 | >60 mL/min | [facility] | | | -LUIS | | | LABORATORY | | | RICAN | | | SERVICES, | | | | | | CORE | | + +---------+ + + + | SODIUM, | 140 | 136 - 145 | [facility] | | | PLASMA | | mmol/L | LABORATORY | | | (LAB) | | | SERVICES, | | | | | | CORE | | + +---------+ + + + | POTASSIUM, | 3.5 | 3.4 - 5.0 | [facility] | | | PLASMA | | mmol/L | LABORATORY | | | (LAB) | | | SERVICES, | | | | | | CORE | | + +---------+ + + + | CHLORIDE, | 104 | 97 - 108 mmol/L | [facility] | | | PLASMA | | | LABORATORY | | | (LAB) | | | SERVICES, | | | | | | CORE | | + +---------+ + + + | TOTAL CO2, | 31 | 21 - 32 mmol/L | [facility] | | | PLASMA | | | LABORATORY | | | (LAB) | | | SERVICES, | | | | | | CORE | | + +---------+ + + + | CALCIUM, | 8.2 (L) | 8.6 - 10.2 | [facility] | | | PLASMA | | mg/dL | LABORATORY | | | (LAB) | | | SERVICES, | | | | | | CORE | | + +---------+ + + + | ALBUMIN, | 1.8 (L) | 3.5 - 4.7 g/dL | [facility] | | | PLASMA | | | LABORATORY | | | (LAB) | | | SERVICES, | | | | | | CORE | | + +---------+ + + + | PHOSPHORUS, | 2.8 | 2.4 - 4.7 mg/dL | [facility] | | | PLASMA | | | LABORATORY | | | (LAB) | | | SERVICES, | | | | | | CORE | | + +---------+ + + + | POTASSIUM | No Hemo | | [facility] | | | CMNT | | | LABORATORY | | | | | | SERVICES, | | | | | | CORE | | + +---------+ + + + | ANION GAP | 5 | mmol/L | [facility] | | | | | | LABORATORY | | | | | | SERVICES, | | | | | | CORE | | + +---------+ + + + | ANION | 10 | 4 - 11 mmol/L | [facility] | | | GAP(ALB | | | LABORATORY | | | CORRECTED) | | | SERVICES, | | | | | | CORE | | + +---------+ + + + + + | Specimen | + + | Blood - Blood | + + + + + | Narrative | Performed At | + + + | GFR is estimated using the MDRD equation recommended by the | [facility] | | National Kidney Disease Education Program. Estimated GFR | LABORATORY | | Interpretive Information: <60 mL/min/1.73 sq m | SERVICES, CORE | | Chronic Kidney Disease <15 mL/min/1.73 sq m | | | Kidney Failure Estimated GFR greater that 60 mL/min/1.73 sq m is of | | | limited clinical value. The MDRD equation is not valid in the | | | following situations: - Patients under 18 years of age - Severe | | | malnutrition or obesity - Vegetarian diet - Rapidly changing kidney | | | function | | + + + + + + + + | Performing | Address | City/State/Zipcode | Phone Number | | Organization | | | | + + + + + | [facility] | [address] | [place] [address] | | | SERVICES, CORE | [address] | | | + + + + + RENAL FUNCTION SET (NA,K,CL,CO2,BUN,CREAT,GLUC,CA,PHOS,ALB ) (05/02/2014 3:00 PM PST) + +---------+ + + + | Component | Value | Ref Range | Performed | Pathologist | | | | | At | Signature | + +---------+ + + + | GLUCOSE, | 139 (H) | 60 - 99 mg/dL | [facility] | | | PLASMA | | | LABORATORY | | | (LAB) | | | SERVICES, | | | | | | CORE | | + +---------+ + + + | BUN, PLASMA | 35 (H) | 6 - 20 mg/dL | [facility] | | | (LAB) | | | LABORATORY | | | | | | SERVICES, | | | | | | CORE | | + +---------+ + + + | CREATININE | 0.78 | 0.60 - 1.10 | [facility] | | | PLASMA | | mg/dL | LABORATORY | | | (LAB) | | | SERVICES, | | | | | | CORE | | + +---------+ + + + | EGFR | >60 | >60 mL/min | [facility] | | | - | | | LABORATORY | | | KYRGYZ | | | SERVICES, | | | | | | CORE | | + +---------+ + + + | EGFR NON | >60 | >60 mL/min | [facility] | | | -LUIS | | | LABORATORY | | | RICAN | | | SERVICES, | | | | | | CORE | | + +---------+ + + + | SODIUM, | 140 | 136 - 145 | [facility] | | | PLASMA | | mmol/L | LABORATORY | | | (LAB) | | | SERVICES, | | | | | | CORE | | + +---------+ + + + | POTASSIUM, | 4.0 | 3.4 - 5.0 | [facility] | | | PLASMA | | mmol/L | LABORATORY | | | (LAB) | | | SERVICES, | | | | | | CORE | | + +---------+ + + + | CHLORIDE, | 103 | 97 - 108 mmol/L | [facility] | | | PLASMA | | | LABORATORY | | | (LAB) | | | SERVICES, | | | | | | CORE | | + +---------+ + + + | TOTAL CO2, | 30 | 21 - 32 mmol/L | [facility] | | | PLASMA | | | LABORATORY | | | (LAB) | | | SERVICES, | | | | | | CORE | | + +---------+ + + + | CALCIUM, | 8.8 | 8.6 - 10.2 | [facility] | | | PLASMA | | mg/dL | LABORATORY | | | (LAB) | | | SERVICES, | | | | | | CORE | | + +---------+ + + + | ALBUMIN, | 1.8 (L) | 3.5 - 4.7 g/dL | [facility] | | | PLASMA | | | LABORATORY | | | (LAB) | | | SERVICES, | | | | | | CORE | | + +---------+ + + + | PHOSPHORUS, | 2.9 | 2.4 - 4.7 mg/dL | [facility] | | | PLASMA | | | LABORATORY | | | (LAB) | | | SERVICES, | | | | | | CORE | | + +---------+ + + + | POTASSIUM | Sl Hemo | | [facility] | | | CMNT | | | LABORATORY | | | | | | SERVICES, | | | | | | CORE | | + +---------+ + + + | ANION GAP | 7 | mmol/L | [facility] | | | | | | LABORATORY | | | | | | SERVICES, | | | | | | CORE | | + +---------+ + + + | ANION | 12 (H) | 4 - 11 mmol/L | [facility] | | | GAP(ALB | | | LABORATORY | | | CORRECTED) | | | SERVICES, | | | | | | CORE | | + +---------+ + + + + + | Specimen | + + | Blood - Blood | + + + + + | Narrative | Performed At | + + + | Sample hemolyzed. Results for K, Total Bili, Direct Bili, AST, | [facility] | | LDH, or HDL may be inaccurate. Refer to comment under test result. | LABORATORY | | GFR is estimated using the MDRD equation recommended by the National | SERVICES, CORE | | Kidney Disease Education Program. Estimated GFR Interpretive | | | Information: <60 mL/min/1.73 sq m Chronic Kidney | | | Disease <15 mL/min/1.73 sq m Kidney Failure | | | Estimated GFR greater that 60 mL/min/1.73 sq m is of limited clinical | | | value. The MDRD equation is not valid in the following situations: | | | - Patients under 18 years of age - Severe malnutrition or obesity | | | - Vegetarian diet - Rapidly changing kidney function | | + + + + + + + + | Performing | Address | City/State/Zipcode | Phone Number | | Organization | | | | + + + + + | [facility] | [address] | [place] [address] | | | SERVICES, [facility] | [address] | | | + + + + + LACTATE, POC (05/02/2014 10:08 AM PST) + +-------+ + + + | Component | Value | Ref Range | Performed | Pathologist | | | | | At | Signature | + +-------+ + + + | LACTATE, | 1.6 | 0.5 - 1.6 | [facility] | | | POC ABL | | mmol/L | RESPIRATORY | | | | | | THERAPY | | + +-------+ + + + + + | Specimen | + + | | + + + + + + + | Performing | Address | City/State/Zipcode | Phone Number | | Organization | | | | + + + + + | [facility] | [address] | [place], [place] | | | THERAPY | [address] | [address] | | + + + + + BLOOD GAS ART, POC RESP (05/02/2014 10:08 AM PST) + + + + + + | Component | Value | Ref Range | Performed | Pathologist | | | | | At | Signature | + + + + + + | HCO3 | 32.2 (H) | 21 - 28 mmol/L | [facility] | | | ARTERIAL, | | | RESPIRATORY | | | POC | | | THERAPY | | + + + + + + | PCO2 | 40 | 32 - 43 mmHg | [facility] | | | ARTERIAL, | | | RESPIRATORY | | | POC | | | THERAPY | | + + + + + + | PH | 7.52 (H) | 7.37 - 7.44 | [facility] | | | ARTERIAL, | | | RESPIRATORY | | | POC | | | THERAPY | | + + + + + + | BASE EXCESS | 9.3 | | [facility] | | | ART, POC | | | RESPIRATORY | | | | | | THERAPY | | + + + + + + | CALC %O2 | 95.3 | 92.0 - 98.0 % | [facility] | | | SAT ART, | | | RESPIRATORY | | | POC | | | THERAPY | | + + + + + + | PO2 | 63 (L) | 72 - 104 mmHg | [facility] | | | ARTERIAL, | | | RESPIRATORY | | | POC | | | THERAPY | | + + + + + + | PAT TEMP | 37.0 | | [facility] | | | ART, POC | | | RESPIRATORY | | | | | | THERAPY | | + + + + + + + + | Specimen | + + | | + + + + + + + | Performing | Address | City/State/Zipcode | Phone Number | | Organization | | | | + + + + + | [facility] | [address] | [place], [place] | | | THERAPY | [address] | [address] | | + + + + + BLOOD GASES, ARTERIAL - LAB (05/02/2014 4:30 AM PST) + + + + + + | Component | Value | Ref Range | Performed | Pathologist | | | | | At | Signature | + + + + + + | PAT TEMP | 37.0 | Degree C | [facility] | | | ARTERIAL | | | LABORATORY | | | | | | SERVICES, | | | | | | CORE | | + + + + + + | FIO2 | 0.45 | | [facility] | | | ARTERIAL | | | LABORATORY | | | | | | SERVICES, | | | | | | CORE | | + + + + + + | PH ARTERIAL | 7.47 (H) | 7.37 - 7.44 | [facility] | | | | | | LABORATORY | | | | | | SERVICES, | | | | | | CORE | | + + + + + + | PCO2 | 43 | 32 - 43 mmHg | [facility] | | | ARTERIAL | | | LABORATORY | | | | | | SERVICES, | | | | | | CORE | | + + + + + + | PO2 | 95 | 72 - 104 mmHg | [facility] | | | ARTERIAL | | | LABORATORY | | | | | | SERVICES, | | | | | | CORE | | + + + + + + | HCO3 | 31 (H) | 21 - 28 mmol/L | [facility] | | | ARTERIAL | | | LABORATORY | | | | | | SERVICES, | | | | | | CORE | | + + + + + + | TOTAL CO2 | 32 (H) | 22 - 28 mmol/L | [facility] | | | ARTERIAL | | | LABORATORY | | | | | | SERVICES, | | | | | | CORE | | + + + + + + | BASE EXCESS | 6.9 | | [facility] | | | ARTERIAL | | | LABORATORY | | | | | | SERVICES, | | | | | | CORE | | + + + + + + | O2 SAT, | 98.6 (H) | 92.0 - 98.0 | [facility] | | | ARTERIAL | | | LABORATORY | | | | | | SERVICES, | | | | | | CORE | | + + + + + + | PAO2/FIO2 | 211 (L) | >300 mmHg | [facility] | | | RATIO | | | LABORATORY | | | | | | SERVICES, | | | | | | CORE | | + + + + + + + + | Specimen | + + | Blood - Blood | + + + + + + + | Performing | Address | City/State/Zipcode | Phone Number | | Organization | | | | + + + + + | [facility] | [address] | [place] [address] | | | SERVICES, CORE | [address] | | | + + + + + CBC (HEMOGRAM) ONLY (05/02/2014 3:03 AM PST) + + + + + + | Component | Value | Ref Range | Performed | Pathologist | | | | | At | Signature | + + + + + + | WHITE CELL | 20.89 (H) | 4.40 - 11.00 | [facility] | | | COUNT | | K/cu mm | LABORATORY | | | | | | SERVICES, | | | | | | CORE | | + + + + + + | RED CELL | 3.03 (L) | 4.00 - 5.20 | [facility] | | | COUNT | | M/cu mm | LABORATORY | | | | | | SERVICES, | | | | | | CORE | | + + + + + + | HEMOGLOBIN | 9.2 (L) | 12.0 - 16.0 | [facility] | | | | | g/dL | LABORATORY | | | | | | SERVICES, | | | | | | CORE | | + + + + + + | HEMATOCRIT | 29.7 (L) | 36.0 - 46.0 % | [facility] | | | | | | LABORATORY | | | | | | SERVICES, | | | | | | CORE | | + + + + + + | MCV | 98.0 (H) | 80.0 - 96.0 fL | [facility] | | | | | | LABORATORY | | | | | | SERVICES, | | | | | | CORE | | + + + + + + | MCHC | 31.0 | 33.0 - 35.5 | [facility] | | | | | g/dL | LABORATORY | | | | | | SERVICES, | | | | | | CORE | | + + + + + + | RDW SD | 58.0 (H) | 35.1 - 46.3 fL | [facility] | | | | | | LABORATORY | | | | | | SERVICES, | | | | | | CORE | | + + + + + + | PLATELET | 154 | 150 - 400 K/cu | [facility] | | | COUNT | | mm | LABORATORY | | | | | | SERVICES, | | | | | | CORE | | + + + + + + | MPV | 12.8 (H) | 9.7 - 12.3 fL | [facility] | | | | | | LABORATORY | | | | | | SERVICES, | | | | | | CORE | | + + + + + + | NRBC% | 13.4 (H) | 0.0 - 0.3 % | [facility] | | | | | | LABORATORY | | | | | | SERVICES, | | | | | | CORE | | + + + + + + | NRBC# | 2.80 (H) | 0.00 - 0.02 | [facility] | | | | | K/cu mm | LABORATORY | | | | | | SERVICES, | | | | | | CORE | | + + + + + + + + | Specimen | + + | Blood - Blood | + + + + + + + | Performing | Address | City/State/Zipcode | Phone Number | | Organization | | | | + + + + + | [facility] | [address] | [place] [address] | | | ARON, JANELL | [address] | | | + + + + + MAGNESIUM, PLASMA (05/02/2014 3:03 AM PST) + +---------+ + + + | Component | Value | Ref Range | Performed | Pathologist | | | | | At | Signature | + +---------+ + + + | MAGNESIUM,P | 1.5 (L) | 1.8 - 2.5 mg/dL | [facility] | | | LASMA | | | LABORATORY | | | | | | SERVICES, | | | | | | CORE | | + +---------+ + + + + + | Specimen | + + | Blood - Blood | + + + + + + + | Performing | Address | City/State/Zipcode | Phone Number | | Organization | | | | + + + + + | [facility] | [address] | [place] [address] | | | SERVICES, CORE | [address] | | | + + + + + RENAL FUNCTION SET (NA,K,CL,CO2,BUN,CREAT,GLUC,CA,PHOS,ALB ) (05/02/2014 3:03 AM PST) + +---------+ + + + | Component | Value | Ref Range | Performed | Pathologist | | | | | At | Signature | + +---------+ + + + | GLUCOSE, | 121 (H) | 60 - 99 mg/dL | [facility] | | | PLASMA | | | LABORATORY | | | (LAB) | | | SERVICES, | | | | | | CORE | | + +---------+ + + + | BUN, PLASMA | 33 (H) | 6 - 20 mg/dL | [facility] | | | (LAB) | | | LABORATORY | | | | | | SERVICES, | | | | | | CORE | | + +---------+ + + + | CREATININE | 0.74 | 0.60 - 1.10 | [facility] | | | PLASMA | | mg/dL | LABORATORY | | | (LAB) | | | SERVICES, | | | | | | CORE | | + +---------+ + + + | EGFR | >60 | >60 mL/min | [facility] | | | - | | | LABORATORY | | | KYRGYZ | | | SERVICES, | | | | | | CORE | | + +---------+ + + + | EGFR NON | >60 | >60 mL/min | [facility] | | | -LUIS | | | LABORATORY | | | RICAN | | | SERVICES, | | | | | | CORE | | + +---------+ + + + | SODIUM, | 140 | 136 - 145 | [facility] | | | PLASMA | | mmol/L | LABORATORY | | | (LAB) | | | SERVICES, | | | | | | CORE | | + +---------+ + + + | POTASSIUM, | 3.3 (L) | 3.4 - 5.0 | [facility] | | | PLASMA | | mmol/L | LABORATORY | | | (LAB) | | | SERVICES, | | | | | | CORE | | + +---------+ + + + | CHLORIDE, | 103 | 97 - 108 mmol/L | [facility] | | | PLASMA | | | LABORATORY | | | (LAB) | | | SERVICES, | | | | | | CORE | | + +---------+ + + + | TOTAL CO2, | 31 | 21 - 32 mmol/L | [facility] | | | PLASMA | | | LABORATORY | | | (LAB) | | | SERVICES, | | | | | | CORE | | + +---------+ + + + | CALCIUM, | 8.2 (L) | 8.6 - 10.2 | [facility] | | | PLASMA | | mg/dL | LABORATORY | | | (LAB) | | | SERVICES, | | | | | | CORE | | + +---------+ + + + | ALBUMIN, | 1.8 (L) | 3.5 - 4.7 g/dL | [facility] | | | PLASMA | | | LABORATORY | | | (LAB) | | | SERVICES, | | | | | | CORE | | + +---------+ + + + | PHOSPHORUS, | 3.5 | 2.4 - 4.7 mg/dL | [facility] | | | PLASMA | | | LABORATORY | | | (LAB) | | | SERVICES, | | | | | | CORE | | + +---------+ + + + | POTASSIUM | Sl Hemo | | [facility] | | | CMNT | | | LABORATORY | | | | | | SERVICES, | | | | | | CORE | | + +---------+ + + + | ANION GAP | 6 | mmol/L | [facility] | | | | | | LABORATORY | | | | | | SERVICES, | | | | | | CORE | | + +---------+ + + + | ANION | 11 | 4 - 11 mmol/L | [facility] | | | GAP(ALB | | | LABORATORY | | | CORRECTED) | | | SERVICES, | | | | | | CORE | | + +---------+ + + + + + | Specimen | + + | Blood - Blood | + + + + + | Narrative | Performed At | + + + | Sample hemolyzed. Results for K, Total Bili, Direct Bili, AST, | [facility] | | LDH, or HDL may be inaccurate. Refer to comment under test result. | LABORATORY | | GFR is estimated using the MDRD equation recommended by the National | SERVICES, CORE | | Kidney Disease Education Program. Estimated GFR Interpretive | | | Information: <60 mL/min/1.73 sq m Chronic Kidney | | | Disease <15 mL/min/1.73 sq m Kidney Failure | | | Estimated GFR greater that 60 mL/min/1.73 sq m is of limited clinical | | | value. The MDRD equation is not valid in the following situations: | | | - Patients under 18 years of age - Severe malnutrition or obesity | | | - Vegetarian diet - Rapidly changing kidney function | | + + + + + + + + | Performing | Address | City/State/Zipcode | Phone Number | | Organization | | | | + + + + + | [facility] | [id number] | [place] [address] | | | SERVICES, CORE | [address] | | | + + + + + INR (05/02/2014 3:03 AM PST) + +-------+ + + + | Component | Value | Ref Range | Performed | Pathologist | | | | | At | Signature | + +-------+ + + + | INR | 1.08 | 0.90 - 1.20 INR | [facility] | | | | | | LABORATORY | | | | | | SERVICES, | | | | | | CORE | | + +-------+ + + + + + | Specimen | + + | Blood - Blood | + + + + + | Narrative | Performed At | + + + | INR Therapeutic ranges for full anticoagulation: INR for | [facility] | | Venous Thromboembolism (2.0 - 3.0) INR INR for | LABORATORY | | most patients with mech. valves (2.5 - 3.5) INR | SERVICES, CORE | + + + + + + + + | Performing | Address | City/State/Zipcode | Phone Number | | Organization | | | | + + + + + | [facility] | [id number] | [place] [address] | | | SERVICES, CORE | [address] | | | + + + + + 12 LEAD ECG (05/02/2014 2:15 AM PST) + + + + + + | Component | Value | Ref Range | Performed | Pathologist | | | | | At | Signature | + + + + + + | VENTRICULAR | 108 | bpm | [facility] | | | RATE | | | OF | | | | | | CARDIOLOGY | | + + + + + + | ATRIAL RATE | 109 | bpm | [facility] | | | | | | OF | | | | | | CARDIOLOGY | | + + + + + + | P-R | 148 | ms | [facility] | | | INTERVAL | | | OF | | | | | | CARDIOLOGY | | + + + + + + | P AXIS | -10 | deg | [facility] | | | | | | OF | | | | | | CARDIOLOGY | | + + + + + + | QRS | 82 | ms | [facility] | | | DURATION | | | OF | | | | | | CARDIOLOGY | | + + + + + + | QT | 352 | ms | [facility] | | | | | | OF | | | | | | CARDIOLOGY | | + + + + + + | QTCB | 472 | ms | [facility] | | | | | | OF | | | | | | CARDIOLOGY | | + + + + + + | R AXIS | -55 | deg | [facility] | | | | | | OF | | | | | | CARDIOLOGY | | + + + + + + | T AXIS | 194 | deg | [facility] | | | | | | OF | | | | | | CARDIOLOGY | | + + + + + + | ECG | SINUS TACHYCARDIALOW | | [facility] | | | IMPRESSION | VOLTAGE IN FRONTAL | | OF | | | | LEADS- OTHERWISE NORMAL | | CARDIOLOGY | | | | ECG -Electronically | | | | | | signed by: | | | | | | SURINDER GARCIA | | | | | | 05-03-2014 20:14:22 | | | | + + + + + + + + | Specimen | + + | | + + + + + | Narrative | Performed At | + + + | | [facility] | | | CARDIOLOGY | + + + + + | Procedure Note | + + | Emeka Elias - 05/03/2014 8:29 PM PST | + + + + + + + | Performing | Address | City/State/Zipcode | Phone Number | | Organization | | | | + + + + + | [facility] | [address] | [place], [place] | | | CARDIOLOGY | [address] | [address] | | + + + + + X-RAY PORTABLE CHEST 1 VIEW (05/02/2014 2:11 AM PST) + + + + + + | Component | Value | Ref Range | Performed | Pathologist | | | | | At | Signature | + + + + + + | X-RAY | EXAM: VT CHEST 1 VIEW | | | | | PORTABLE | 05/02/14 02:11:00 | | | | | CHEST 1 | HISTORY: Increased work | | | | | VIEW | or breathing. History of | | | | | | Crohn's disease | | | | | | withretroperitoneal | | | | | | hematoma. COMPARISON: | | | | | | 05/01/2014. FINDINGS: | | | | | | The left central venous | | | | | | catheter, right upper | | | | | | extremity PICC, and | | | | | | weighted tipfeeding tube | | | | | | are unchanged in | | | | | | position. The | | | | | | cardiomediastinal | | | | | | contour isunchanged. The | | | | | | lung volumes are low. | | | | | | There is increased lower | | | | | | lobe | | | | | | predominantgroundglass | | | | | | opacification and | | | | | | vascular indistinctness. | | | | | | There is central | | | | | | airwaythickening and | | | | | | patchy lower lobe | | | | | | consolidation, as | | | | | | before. Right greater | | | | | | thanleft pleural | | | | | | effusions with | | | | | | associated atelectasis, | | | | | | increased since the | | | | | | priorexam. Surgical | | | | | | clips project over the | | | | | | abdomen, as before. | | | | | | IMPRESSION: 1. Increased | | | | | | hydrostatic pulmonary | | | | | | edema with associated | | | | | | pleural effusions. 2. | | | | | | Patchy consolidation and | | | | | | central airways | | | | | | thickening likely | | | | | | representingaspiration | | | | | | and retained secretions. | | | | | | Attending Radiologists: | | | | | | LULU GORDON, | | | | | | MDAuthor: LELE MARTINEZ, | | | | | | I have personally | | | | | | viewed this | | | | | | procedure/exam, reviewed | | | | | | this report, and | | | | | | madechanges to it where | | | | | | appropriate. | | | | | | Final/Electronically | | | | | | signed / LULU | | | | | | EVAN 05/02/2014 11:05 | | | | | | AM | | | | + + + + + + + + | Specimen | + + | | + + + +---------+ + + | Performing | Address | City/State/Zipcode | Phone Number | | Organization | | | | + +---------+ + + | [facility] | | | | | RADIOLOGY | | | | + +---------+ + + BLOOD GASES, ARTERIAL - LAB (05/02/2014 1:49 AM PST) + + + + + + | Component | Value | Ref Range | Performed | Pathologist | | | | | At | Signature | + + + + + + | PAT TEMP | ng | Degree C | [facility] | | | ARTERIAL | | | LABORATORY | | | | | | SERVICES, | | | | | | CORE | | + + + + + + | FIO2 | Comment: ng | | [facility] | | | ARTERIAL | | | LABORATORY | | | | | | SERVICES, | | | | | | CORE | | + + + + + + | PH ARTERIAL | 7.34 (L) | 7.37 - 7.44 | [facility] | | | | | | LABORATORY | | | | | | SERVICES, | | | | | | CORE | | + + + + + + | PCO2 | 59 (H) | 32 - 43 mmHg | [facility] | | | ARTERIAL | | | LABORATORY | | | | | | SERVICES, | | | | | | CORE | | + + + + + + | PO2 | 57 (L) | 72 - 104 mmHg | [facility] | | | ARTERIAL | | | LABORATORY | | | | | | SERVICES, | | | | | | CORE | | + + + + + + | HCO3 | 31 (H) | 21 - 28 mmol/L | [facility] | | | ARTERIAL | | | LABORATORY | | | | | | SERVICES, | | | | | | CORE | | + + + + + + | TOTAL CO2 | 33 (H) | 22 - 28 mmol/L | [facility] | | | ARTERIAL | | | LABORATORY | | | | | | SERVICES, | | | | | | CORE | | + + + + + + | BASE EXCESS | 4.6 | | [facility] | | | ARTERIAL | | | LABORATORY | | | | | | SERVICES, | | | | | | CORE | | + + + + + + | O2 SAT, | 87.1 (L) | 92.0 - 98.0 | [facility] | | | ARTERIAL | | | LABORATORY | | | | | | SERVICES, | | | | | | CORE | | + + + + + + | PAO2/FIO2 | | >300 mmHg | [facility] | | | RATIO | | | LABORATORY | | | | | | SERVICES, | | | | | | CORE | | + + + + + + + + | Specimen | + + | Blood - Blood | + + + + + + + | Performing | Address | City/State/Zipcode | Phone Number | | Organization | | | | + + + + + | [facility] | [address] | [place] [address] | | | SERVICES, CORE | [address] | | | + + + + + CAPILLARY BLOOD GLUCOSE (NO CHG), POC (05/01/2014 11:46 PM PST) + +---------+ + + + | Component | Value | Ref Range | Performed | Pathologist | | | | | At | Signature | + +---------+ + + + | BLOOD | 136 (H) | 60 - 99 mg/dL | [facility] - | | | GLUCOSE, | | | [facility] | | | POC | | | [facility] | | | | | | OF CARE | | | | | | TESTS | | + +---------+ + + + + + | Specimen | + + | | + + + + + + + | Performing | Address | City/State/Zipcode | Phone Number | | Organization | | | | + + + + + | [facility] | [address] | [place], [place] | | | [facility] [place] | [facility] | [phone] | | | TESTS | | | | + + + + + CAPILLARY BLOOD GLUCOSE (NO CHG), POC (05/01/2014 6:19 PM PST) + +---------+ + + + | Component | Value | Ref Range | Performed | Pathologist | | | | | At | Signature | + +---------+ + + + | BLOOD | 144 (H) | 60 - 99 mg/dL | [facility] - | | | GLUCOSE, | | | [facility] | | | POC | | | [place] [place] | | | | | | OF CARE | | | | | | TESTS | | + +---------+ + + + + + | Specimen | + + | | + + + + + + + | Performing | Address | City/State/Zipcode | Phone Number | | Organization | | | | + + + + + | [facility] | [address] | [place], [place] | | | [place] [facility] | [facility] | [phone] | | | TESTS | | | | + + + + + BLOOD GASES, ARTERIAL - LAB (05/01/2014 8:44 AM PST) + + + + + + | Component | Value | Ref Range | Performed | Pathologist | | | | | At | Signature | + + + + + + | PAT TEMP | Comment: NG | Degree C | [facility] | | | ARTERIAL | | | LABORATORY | | | | | | SERVICES, | | | | | | CORE | | + + + + + + | FIO2 | Comment: NG | | [facility] | | | ARTERIAL | | | LABORATORY | | | | | | SERVICES, | | | | | | CORE | | + + + + + + | PH ARTERIAL | 7.53 (H) | 7.37 - 7.44 | [facility] | | | | | | LABORATORY | | | | | | SERVICES, | | | | | | CORE | | + + + + + + | PCO2 | 37 | 32 - 43 mmHg | [facility] | | | ARTERIAL | | | LABORATORY | | | | | | SERVICES, | | | | | | CORE | | + + + + + + | PO2 | 60 (L) | 72 - 104 mmHg | [facility] | | | ARTERIAL | | | LABORATORY | | | | | | SERVICES, | | | | | | CORE | | + + + + + + | HCO3 | 31 (H) | 21 - 28 mmol/L | [facility] | | | ARTERIAL | | | LABORATORY | | | | | | SERVICES, | | | | | | CORE | | + + + + + + | TOTAL CO2 | 32 (H) | 22 - 28 mmol/L | [facility] | | | ARTERIAL | | | LABORATORY | | | | | | SERVICES, | | | | | | CORE | | + + + + + + | BASE EXCESS | 7.6 | | [facility] | | | ARTERIAL | | | LABORATORY | | | | | | SERVICES, | | | | | | CORE | | + + + + + + | O2 SAT, | 92.3 | 92.0 - 98.0 | [facility] | | | ARTERIAL | | | LABORATORY | | | | | | SERVICES, | | | | | | CORE | | + + + + + + | PAO2/FIO2 | | >300 mmHg | [facility] | | | RATIO | | | LABORATORY | | | | | | SERVICES, | | | | | | CORE | | + + + + + + + + | Specimen | + + | Blood - Blood | + + + + + + + | Performing | Address | City/State/Zipcode | Phone Number | | Organization | | | | + + + + + | [facility] | [address] | [place] [address] | | | SERVICES, CORE | [address] | | | + + + + + X-RAY PORTABLE CHEST 1 VIEW (05/01/2014 3:37 AM PST) + + + + + + | Component | Value | Ref Range | Performed | Pathologist | | | | | At | Signature | + + + + + + | X-RAY | EXAM: VT CHEST 1 VIEW | | | | | PORTABLE | 05/01/14 03:37:00 | | | | | CHEST 1 | HISTORY: Shortness of | | | | | VIEW | breath, Crohn's disease, | | | | | | retroperitoneal | | | | | | hemorrhage COMPARISON: | | | | | | 04/30/14 FINDINGS: | | | | | | Bilateral | | | | | | [id number] | | | | | | pleural effusions have | | | | | | slightly | | | | | | improved.Atelectasis | | | | | | within the lower lobes | | | | | | has minimally improved | | | | | | and groundglassopacities | | | | | | within the perihilar | | | | | | and upper lobes have | | | | | | also slightly | | | | | | improved.There is no | | | | | | pneumothorax. Cardiac | | | | | | silhouette is obscured. | | | | | | Feeding tube extendsinto | | | | | | the second portion of | | | | | | the duodenum. Left | | | | | | Groshong catheter is | | | | | | unchanged. IMPRESSION: | | | | | | Mild improvement in the | | | | | | bilateral effusions, | | | | | | bibasilar atelectasis as | | | | | | well asthe | | | | | | perihilar/upper lobe | | | | | | groundglass. Attending | | | | | | Radiologists: EMIL Asher | | | | | | MARGARITO CARREROuthor: EMIL | | | | | | V MD Inez CARRERO have | | | | | | personally viewed this | | | | | | procedure/exam, reviewed | | | | | | this report, and | | | | | | madechanges to it where | | | | | | appropriate. | | | | | | Final/Electronically | | | | | | signed / EMIL Asher | | | | | | ALISE 05/01/2014 | | | | | | 10:03 AM | | | | + + + + + + + + | Specimen | + + | | + + + +---------+ + + | Performing | Address | City/State/Zipcode | Phone Number | | Organization | | | | + +---------+ + + | [facility] | | | | [facility]IOLOG[facility] | | | | + +---------+ + + CBC (HEMOGRAM) ONLY (05/01/2014 2:45 AM PST) + + + + + + | Component | Value | Ref Range | Performed | Pathologist | | | | | At | Signature | + + + + + + | WHITE CELL | 21.21 (H) | 4.40 - 11.00 | [facility] | | | COUNT | | K/cu mm | LABORATORY | | | | | | SERVICES, | | | | | | CORE | | + + + + + + | RED CELL | 3.05 (L) | 4.00 - 5.20 | [facility] | | | COUNT | | M/cu mm | LABORATORY | | | | | | SERVICES, | | | | | | CORE | | + + + + + + | HEMOGLOBIN | 9.4 (L) | 12.0 - 16.0 | [facility] | | | | | g/dL | LABORATORY | | | | | | SERVICES, | | | | | | CORE | | + + + + + + | HEMATOCRIT | 29.6 (L) | 36.0 - 46.0 % | [facility] | | | | | | LABORATORY | | | | | | SERVICES, | | | | | | CORE | | + + + + + + | MCV | 97.0 (H) | 80.0 - 96.0 fL | [facility] | | | | | | LABORATORY | | | | | | SERVICES, | | | | | | CORE | | + + + + + + | MCHC | 31.8 | 33.0 - 35.5 | [facility] | | | | | g/dL | LABORATORY | | | | | | SERVICES, | | | | | | CORE | | + + + + + + | RDW SD | 56.4 (H) | 35.1 - 46.3 fL | [facility] | | | | | | LABORATORY | | | | | | SERVICES, | | | | | | CORE | | + + + + + + | PLATELET | 131 (L) | 150 - 400 K/cu | [facility] | | | COUNT | | mm | LABORATORY | | | | | | SERVICES, | | | | | | CORE | | + + + + + + | MPV | 13.7 (H) | 9.7 - 12.3 fL | [facility] | | | | | | LABORATORY | | | | | | SERVICES, | | | | | | CORE | | + + + + + + | NRBC% | 14.3 (H) | 0.0 - 0.3 % | [facility] | | | | | | LABORATORY | | | | | | SERVICES, | | | | | | CORE | | + + + + + + | NRBC# | 3.03 (H) | 0.00 - 0.02 | [facility] | | | | | K/cu mm | LABORATORY | | | | | | SERVICES, | | | | | | CORE | | + + + + + + + + | Specimen | + + | Blood - Blood | + + + + + + + | Performing | Address | City/State/Zipcode | Phone Number | | Organization | | | | + + + + + | [facility] | [address] | [place] [address] | | | SERVICES, JANELL | [address] | | | + + + + + MAGNESIUM, PLASMA (05/01/2014 2:45 AM PST) + +-------+ + + + | Component | Value | Ref Range | Performed | Pathologist | | | | | At | Signature | + +-------+ + + + | MAGNESIUM,P | 1.9 | 1.8 - 2.5 mg/dL | [facility] | | | LASMA | | | LABORATORY | | | | | | ARON, | | | | | | CORE | | + +-------+ + + + + + | Specimen | + + | Blood - Blood | + + + + + + + | Performing | Address | City/State/Zipcode | Phone Number | | Organization | | | | + + + + + | [facility] | [address] | [place] [address] | | | SERVICES, CORE | [address] | | | + + + + + RENAL FUNCTION SET (NA,K,CL,CO2,BUN,CREAT,GLUC,CA,PHOS,ALB ) (05/01/2014 2:45 AM PST) + +---------+ + + + | Component | Value | Ref Range | Performed | Pathologist | | | | | At | Signature | + +---------+ + + + | GLUCOSE, | 106 (H) | 60 - 99 mg/dL | [facility] | | | PLASMA | | | LABORATORY | | | (LAB) | | | SERVICES, | | | | | | CORE | | + +---------+ + + + | BUN, PLASMA | 34 (H) | 6 - 20 mg/dL | [facility] | | | (LAB) | | | LABORATORY | | | | | | SERVICES, | | | | | | CORE | | + +---------+ + + + | CREATININE | 0.80 | 0.60 - 1.10 | [facility] | | | PLASMA | | mg/dL | LABORATORY | | | (LAB) | | | SERVICES, | | | | | | CORE | | + +---------+ + + + | EGFR | >60 | >60 mL/min | [facility] | | | - | | | LABORATORY | | | KYRGYZ | | | SERVICES, | | | | | | CORE | | + +---------+ + + + | EGFR NON | >60 | >60 mL/min | [facility] | | | -LUIS | | | LABORATORY | | | RICAN | | | SERVICES, | | | | | | CORE | | + +---------+ + + + | SODIUM, | 141 | 136 - 145 | [facility] | | | PLASMA | | mmol/L | LABORATORY | | | (LAB) | | | SERVICES, | | | | | | CORE | | + +---------+ + + + | POTASSIUM, | 3.1 (L) | 3.4 - 5.0 | [facility] | | | PLASMA | | mmol/L | LABORATORY | | | (LAB) | | | SERVICES, | | | | | | CORE | | + +---------+ + + + | CHLORIDE, | 105 | 97 - 108 mmol/L | [facility] | | | PLASMA | | | LABORATORY | | | (LAB) | | | SERVICES, | | | | | | CORE | | + +---------+ + + + | TOTAL CO2, | 29 | 21 - 32 mmol/L | [facility] | | | PLASMA | | | LABORATORY | | | (LAB) | | | SERVICES, | | | | | | CORE | | + +---------+ + + + | CALCIUM, | 8.9 | 8.6 - 10.2 | [facility] | | | PLASMA | | mg/dL | LABORATORY | | | (LAB) | | | SERVICES, | | | | | | CORE | | + +---------+ + + + | ALBUMIN, | 1.7 (L) | 3.5 - 4.7 g/dL | [facility] | | | PLASMA | | | LABORATORY | | | (LAB) | | | SERVICES, | | | | | | CORE | | + +---------+ + + + | PHOSPHORUS, | 2.7 | 2.4 - 4.7 mg/dL | [facility] | | | PLASMA | | | LABORATORY | | | (LAB) | | | SERVICES, | | | | | | CORE | | + +---------+ + + + | POTASSIUM | No Hemo | | [facility] | | | CMNT | | | LABORATORY | | | | | | SERVICES, | | | | | | CORE | | + +---------+ + + + | ANION GAP | 7 | mmol/L | [facility] | | | | | | LABORATORY | | | | | | SERVICES, | | | | | | CORE | | + +---------+ + + + | ANION | 12 (H) | 4 - 11 mmol/L | [facility] | | | GAP(ALB | | | LABORATORY | | | CORRECTED) | | | SERVICES, | | | | | | CORE | | + +---------+ + + + + + | Specimen | + + | Blood - Blood | + + + + + | Narrative | Performed At | + + + | GFR is estimated using the MDRD equation recommended by the | [facility] | | National Kidney Disease Education Program. Estimated GFR | LABORATORY | | Interpretive Information: <60 mL/min/1.73 sq m | SERVICES, CORE | | Chronic Kidney Disease <15 mL/min/1.73 sq m | | | Kidney Failure Estimated GFR greater that 60 mL/min/1.73 sq m is of | | | limited clinical value. The MDRD equation is not valid in the | | | following situations: - Patients under 18 years of age - Severe | | | malnutrition or obesity - Vegetarian diet - Rapidly changing kidney | | | function | | + + + + + + + + | Performing | Address | City/State/Zipcode | Phone Number | | Organization | | | | + + + + + | [facility] | [address] | [place] [address] | | | SERVICES, CORE | [address] | | | + + + + + INR (05/01/2014 2:45 AM PST) + +-------+ + + + | Component | Value | Ref Range | Performed | Pathologist | | | | | At | Signature | + +-------+ + + + | INR | 1.14 | 0.90 - 1.20 INR | [facility] | | | | | | LABORATORY | | | | | | SERVICES, | | | | | | CORE | | + +-------+ + + + + + | Specimen | + + | Blood - Blood | + + + + + | Narrative | Performed At | + + + | INR Therapeutic ranges for full anticoagulation: INR for | [facility] | | Venous Thromboembolism (2.0 - 3.0) INR INR for | LABORATORY | | most patients with mech. valves (2.5 - 3.5) INR | SERVICES, CORE | + + + + + + + + | Performing | Address | City/State/Zipcode | Phone Number | | Organization | | | | + + + + + | [facility] | [address] | [place] [address] | | | JANELL SHARP | [address] | | | + + + + + CAPILLARY BLOOD GLUCOSE (NO CHG), POC (05/01/2014 12:22 AM PST) + +---------+ + + + | Component | Value | Ref Range | Performed | Pathologist | | | | | At | Signature | + +---------+ + + + | BLOOD | 120 (H) | 60 - 99 mg/dL | [facility] - | | | GLUCOSE, | | | [facility] | | | POC | | | [facility] | | | | | | OF CARE | | | | | | TESTS | | + +---------+ + + + + + | Specimen | + + | | + + + + + + + | Performing | Address | City/State/Zipcode | Phone Number | | Organization | | | | + + + + + | [facility] | [address] | [place], [place] | | | [facility] | [facility] | [phone] | | | TESTS | | | | + + + + + X-RAY ABD LTD FEEDING TUBE EVAL (04/30/2014 4:24 PM PST) + + + + + + | Component | Value | Ref Range | Performed | Pathologist | | | | | At | Signature | + + + + + + | ABD LTD | EXAM: Single | | | | | FEEDING | semi-upright view of the | | | | | TUBE EVAL | abdomen. History: | | | | | | Feeding tube placement. | | | | | | Comparison: CT of | | | | | | 04/30/2014 IMPRESSION: | | | | | | Wires, leads, and tubing | | | | | | obscure portions of the | | | | | | radiograph. 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 No evidence | | | | | | of bowel | | | | | | obstruction.Bilateral | | | | | | pleural effusions. | | | | | | Attending Radiologists: | | | | | | JOSIANE SANDY, | | | | | | MDAuthor: JOSIANE | | | | | | MD VIKA I have | | | | | | personally viewed this | | | | | | procedure/exam, reviewed | | | | | | this report, and | | | | | | madechanges to it where | | | | | | appropriate. | | | | | | Final/Electronically | | | | | | signed / JOSIANE | | | | | | VIKA 04/30/2014 | | | | | | 16:46 PM | | | | + + + + + + + + | Specimen | + + | | + + + +---------+ + + | Performing | Address | City[facility]State[facility] | Phone Number | | Organization | | | | + +---------+ + + | [facility] DEPARTMENT OF | | | | | RADIOLOGY | | | | + +---------+ + + CT ABDOMEN & PELVIS W IV CONTRAST (04/30/2014 10:04 AM PST) + + + + + + | Component | Value | Ref Range | Performed | Pathologist | | | | | At | Signature | + + + + + + | CT ABDOMEN | EXAM: CT of the abdomen | | | | | & PELVIS W | and pelvis with contrast | | | | | CONTRAST | HISTORY: History of a | | | | | | spontaneous large | | | | | | retroperitoneal/pelvic | | | | | | hematomafollowing | | | | | | coagulation, status post | | | | | | left iliolumbar | | | | | | arterial | | | | | | embolization.Evaluate | | | | | | for source of infection. | | | | | | COMPARISON: CTA 04/23/14 | | | | | | TECHNIQUE: CT of the | | | | | | abdomen and pelvis with | | | | | | contrast. 150 mL of | | | | | | Omnipaque 300iodinated | | | | | | intravenous contrast was | | | | | | given. Coronal and | | | | | | sagittal reformats | | | | | | werereviewed. | | | | | | FINDINGS:LOWER THORAX: | | | | | | Moderate bilateral | | | | | | pleural effusions with | | | | | | adjacent | | | | | | dependentatelectasis are | | | | | | redemonstrated, without | | | | | | significant change in | | | | | | the degree ofpassive | | | | | | atelectasis compared | | | | | | 04/23/14. Bibasilar | | | | | | ground glass opacities | | | | | | havedeveloped in the | | | | | | middle lobe and lingular | | | | | | segments. A small | | | | | | hiatal herniapersists. | | | | | | LIVER: | | | | | | Unremarkable.BILIARY: | | | | | | Postsurgical changes of | | | | | | cholecystectomy are | | | | | | redemonstrated. | | | | | | Nointrahepatic biliary | | | | | | dilatation. Prominent | | | | | | common bile duct is | | | | | | likelypostsurgical.SPLEE | | | | | | N: Surgically absent | | | | | | with interval evacuation | | | | | | of the previously | | | | | | notedpacking | | | | | | material.PANCREAS: | | | | | | Unremarkable. ADRENALS: | | | | | | Unremarkable.KIDNEYS/URE | | | | | | TERS: Bilateral | | | | | | subcentimeter cystic | | | | | | lesions are | | | | | | redemonstrated toosmall | | | | | | to characterize. No | | | | | | hydronephrosis or | | | | | | perinephric fluid | | | | | | collection.PELVIC | | | | | | ORGANS/BLADDER: | | | | | | Unremarkable | | | | | | catheterized | | | | | | decompressed urinary | | | | | | bladderwith locules of | | | | | | air anteriorly, likely | | | | | | iatrogenic.GI TRACT: | | | | | | Post surgical changes | | | | | | within the proximal | | | | | | large bowel | | | | | | areredemonstrated.PERITO | | | | | | NEUM: Moderate amount of | | | | | | free fluid is present | | | | | | in the perihepatic | | | | | | spaceextending along the | | | | | | right paracolic gutter | | | | | | into the pelvis. Free | | | | | | fluid ispresent in the | | | | | | midabdomen. | | | | | | Multiloculated left | | | | | | retroperitoneal | | | | | | fluidcollections persist | | | | | | overlying the area of | | | | | | the previous hematoma | | | | | | withoutcontained | | | | | | collection. The | | | | | | hematoma posterior to | | | | | | the left iliacus muscle | | | | | | hasdecreased in size and | | | | | | density, measuring 7.5 | | | | | | x 3.9 x 10.6 cm, axial | | | | | | image 143and coronal | | | | | | image 87, previously 8.9 | | | | | | x 4.6 cm. Asymmetric | | | | | | low-densitysuperficial | | | | | | soft tissue edema is | | | | | | present in the right | | | | | | greater than left | | | | | | flank,without peripheral | | | | | | enhancement to suggest | | | | | | underlying | | | | | | infection.LYMPH NODES: | | | | | | No | | | | | | lymphadenopathy.VESSELS: | | | | | | Postprocedural changes | | | | | | of left iliolumbar | | | | | | embolization are noted. | | | | | | BONES: No suspicious | | | | | | bony lesions.SOFT | | | | | | TISSUE: Extensive and | | | | | | diffuse soft tissue | | | | | | edema is consistent | | | | | | withanasarca. Midline | | | | | | ventral abdominal | | | | | | incision is present. | | | | | | IMPRESSION: 1. No | | | | | | definitive infectious | | | | | | source identified. | | | | | | Findings consistent | | | | | | withanasarca include | | | | | | interval appearance of | | | | | | moderate ascites | | | | | | throughout the | | | | | | abdomenand pelvis, | | | | | | pulmonary edema with | | | | | | bilateral pleural | | | | | | effusions, and diffuse | | | | | | softtissue edema.New | | | | | | patchy groundglass | | | | | | opacities in the middle | | | | | | lobe and lingula segment | | | | | | withpersistent passive | | | | | | atelectasis in the lower | | | | | | lobes likely from | | | | | | adjacent | | | | | | pleuraleffusions. | | | | | | Suggest correlation. 2. | | | | | | Decreased size and | | | | | | density of the left | | | | | | iliacus muscle hematoma | | | | | | with newpost-procedural | | | | | | changes of an embolized | | | | | | left iliolumbar artery | | | | | | abutting thehematoma. 3. | | | | | | In the area of the | | | | | | evacuated | | | | | | retroperitoneal hematoma | | | | | | loculatedheterogeneous | | | | | | fluid (likely resolving | | | | | | hematoma) persists | | | | | | superimposed | | | | | | onlow-density free fluid | | | | | | along the left | | | | | | abdominal and pelvic | | | | | | sidewall. Attending | | | | | | Radiologists: JULIO | | | | | | EPIFANIO AKERSHAuthor: | | | | | | SAMIRA DAVILA MD I have | | | | | | personally viewed this | | | | | | procedure/exam, reviewed | | | | | | this report, and | | | | | | madechanges to it where | | | | | | appropriate. | | | | | | Final/Electronically | | | | | | signed / JULIO | | | | | | MHLANGA 04/30/2014 12:49 | | | | | | PM Pending final | | | | | | approval / SAMIRA FIGI | | | | | | 04/30/2014 11:33 AM | | | | | | Preliminary / SAMIRA | | | | | | FIGI 04/30/2014 10:03 AM | | | | | | | | | | + + + + + + + + | Specimen | + + | | + + + +---------+ + + | Performing | Address | City/State/Zipcode | Phone Number | | Organization | | | | + +---------+ + + | [place] DEPARTMENT OF | | | | | RADIOLOGY | | | | + +---------+ + + X-RAY PORTABLE CHEST 1 VIEW (04/30/2014 9:22 AM PST) + + + + + + | Component | Value | Ref Range | Performed | Pathologist | | | | | At | Signature | + + + + + + | X-RAY | STUDY: VT CHEST 1 VIEW | | | | | PORTABLE | 04/30/14 09:22:00 | | | | | CHEST 1 | COMPARISON: 04/24/14 | | | | | VIEW | HISTORY: Crohn's | | | | | | disease. COPD. | | | | | | Retroperitoneal | | | | | | abscess. FINDINGS: | | | | | | Portable AP chest x-ray | | | | | | demonstrates a left | | | | | | subclavian central line | | | | | | as well asa right PICC. | | | | | | The patient has been | | | | | | extubated since the | | | | | | prior study with the | | | | | | NGtube and right IJ | | | | | | central line also | | | | | | removed. There is no | | | | | | resultantpneumothorax. | | | | | | There are bilateral | | | | | | pleural effusions | | | | | | present as before. | | | | | | Thereis increased | | | | | | associated compressive | | | | | | atelectasis with | | | | | | perihilar | | | | | | groundglassopacities | | | | | | noted which could | | | | | | represent a focal | | | | | | pneumonia or edema. | | | | | | IMPRESSION: Interval | | | | | | extubation removal of NG | | | | | | tube and right IJ | | | | | | central line.2. | | | | | | Bilateral pleural | | | | | | effusions and associated | | | | | | compressive | | | | | | atelectasis.3. | | | | | | Increased perihilar | | | | | | groundglass opacities | | | | | | could represent | | | | | | aspiration oredema. | | | | | | Attending Radiologists: | | | | | | FAY BERNAL MDAuthor: | | | | | | FAY BERNAL MD I have | | | | | | personally viewed this | | | | | | procedure/exam, reviewed | | | | | | this report, and | | | | | | madechanges to it where | | | | | | appropriate. | | | | | | Final/Electronically | | | | | | signed / FAY BERNAL | | | | | | 04/30/2014 15:57 PM | | | | + + + + + + + + | Specimen | + + | | + + + +---------+ + + | Performing | Address | City/State/Zipcode | Phone Number | | Organization | | | | + +---------+ + + | [facility] DEPARTMENT OF | | | | | RADIOLOGY | | | | + +---------+ + + CBC (HEMOGRAM) ONLY (04/30/2014 4:44 AM PST) + + + + + + | Component | Value | Ref Range | Performed | Pathologist | | | | | At | Signature | + + + + + + | WHITE CELL | 26.14 (H) | 4.40 - 11.00 | [facility] | | | COUNT | | K/cu mm | LABORATORY | | | | | | SERVICES, | | | | | | CORE | | + + + + + + | RED CELL | 3.07 (L) | 4.00 - 5.20 | [facility] | | | COUNT | | M/cu mm | LABORATORY | | | | | | SERVICES, | | | | | | CORE | | + + + + + + | HEMOGLOBIN | 9.3 (L) | 12.0 - 16.0 | [facility] | | | | | g/dL | LABORATORY | | | | | | SERVICES, | | | | | | CORE | | + + + + + + | HEMATOCRIT | 29.1 (L) | 36.0 - 46.0 % | [facility] | | | | | | LABORATORY | | | | | | SERVICES, | | | | | | CORE | | + + + + + + | MCV | 94.8 | 80.0 - 96.0 fL | [facility] | | | | | | LABORATORY | | | | | | SERVICES, | | | | | | CORE | | + + + + + + | MCHC | 32.0 | 33.0 - 35.5 | [facility] | | | | | g/dL | LABORATORY | | | | | | SERVICES, | | | | | | CORE | | + + + + + + | RDW SD | 54.3 (H) | 35.1 - 46.3 fL | [facility] | | | | | | LABORATORY | | | | | | SERVICES, | | | | | | CORE | | + + + + + + | PLATELET | 101 (L) | 150 - 400 K/cu | [facility] | | | COUNT | | mm | LABORATORY | | | | | | SERVICES, | | | | | | CORE | | + + + + + + | MPV | 13.5 (H) | 9.7 - 12.3 fL | [facility] | | | | | | LABORATORY | | | | | | SERVICES, | | | | | | CORE | | + + + + + + | NRBC% | 13.5 (H) | 0.0 - 0.3 % | [facility] | | | | | | LABORATORY | | | | | | SERVICES, | | | | | | CORE | | + + + + + + | NRBC# | 3.53 (H) | 0.00 - 0.02 | [facility] | | | | | K/cu mm | LABORATORY | | | | | | SERVICES, | | | | | | CORE | | + + + + + + + + | Specimen | + + | Blood - Blood | + + + + + + + | Performing | Address | City/State/Zipcode | Phone Number | | Organization | | | | + + + + + | [facility] | [address] | [place] [address] | | | SERVICES, CORE | [address] | | | + + + + + INR (04/30/2014 4:44 AM PST) + +-------+ + + + | Component | Value | Ref Range | Performed | Pathologist | | | | | At | Signature | + +-------+ + + + | INR | 0.98 | 0.90 - 1.20 INR | [facility] | | | | | | LABORATORY | | | | | | SERVICES, | | | | | | CORE | | + +-------+ + + + + + | Specimen | + + | Blood - Blood | + + + + + | Narrative | Performed At | + + + | INR Therapeutic ranges for full anticoagulation: INR for | [facility] | | Venous Thromboembolism (2.0 - 3.0) INR INR for | LABORATORY | | most patients with mech. valves (2.5 - 3.5) INR | JANELL SHARP | + + + + + + + + | Performing | Address | City/State/Zipcode | Phone Number | | Organization | | | | + + + + + | [facility] | [address] | [place] [address] | | | JANELL SHARP | [address] | | | + + + + + MAGNESIUM, PLASMA (04/30/2014 4:44 AM PST) + +-------+ + + + | Component | Value | Ref Range | Performed | Pathologist | | | | | At | Signature | + +-------+ + + + | MAGNESIUM,P | 1.9 | 1.8 - 2.5 mg/dL | [facility] | | | LASMA | | | LABORATORY | | | | | | SERVICES, | | | | | | CORE | | + +-------+ + + + + + | Specimen | + + | Blood - Blood | + + + + + + + | Performing | Address | City/State/Zipcode | Phone Number | | Organization | | | | + + + + + | [facility] | [address] | [place] [address] | | | JANELL SHARP | [address] | | | + + + + + RENAL FUNCTION SET (NA,K,CL,CO2,BUN,CREAT,GLUC,CA,PHOS,ALB ) (04/30/2014 4:44 AM PST) + +---------+ + + + | Component | Value | Ref Range | Performed | Pathologist | | | | | At | Signature | + +---------+ + + + | GLUCOSE, | 80 | 60 - 99 mg/dL | [facility] | | | PLASMA | | | LABORATORY | | | (LAB) | | | SERVICES, | | | | | | CORE | | + +---------+ + + + | BUN, PLASMA | 34 (H) | 6 - 20 mg/dL | [facility] | | | (LAB) | | | LABORATORY | | | | | | SERVICES, | | | | | | CORE | | + +---------+ + + + | CREATININE | 0.81 | 0.60 - 1.10 | [facility] | | | PLASMA | | mg/dL | LABORATORY | | | (LAB) | | | SERVICES, | | | | | | CORE | | + +---------+ + + + | EGFR | >60 | >60 mL/min | [facility] | | | - | | | LABORATORY | | | KYRGYZ | | | SERVICES, | | | | | | CORE | | + +---------+ + + + | EGFR NON | >60 | >60 mL/min | [facility] | | | -LUIS | | | LABORATORY | | | RICAN | | | SERVICES, | | | | | | CORE | | + +---------+ + + + | SODIUM, | 145 | 136 - 145 | [facility] | | | PLASMA | | mmol/L | LABORATORY | | | (LAB) | | | SERVICES, | | | | | | CORE | | + +---------+ + + + | POTASSIUM, | 3.2 (L) | 3.4 - 5.0 | [facility] | | | PLASMA | | mmol/L | LABORATORY | | | (LAB) | | | SERVICES, | | | | | | CORE | | + +---------+ + + + | CHLORIDE, | 107 | 97 - 108 mmol/L | [facility] | | | PLASMA | | | LABORATORY | | | (LAB) | | | SERVICES, | | | | | | CORE | | + +---------+ + + + | TOTAL CO2, | 30 | 21 - 32 mmol/L | [facility] | | | PLASMA | | | LABORATORY | | | (LAB) | | | SERVICES, | | | | | | CORE | | + +---------+ + + + | CALCIUM, | 9.2 | 8.6 - 10.2 | [facility] | | | PLASMA | | mg/dL | LABORATORY | | | (LAB) | | | SERVICES, | | | | | | CORE | | + +---------+ + + + | ALBUMIN, | 1.6 (L) | 3.5 - 4.7 g/dL | [facility] | | | PLASMA | | | LABORATORY | | | (LAB) | | | SERVICES, | | | | | | CORE | | + +---------+ + + + | PHOSPHORUS, | 2.5 | 2.4 - 4.7 mg/dL | [facility] | | | PLASMA | | | LABORATORY | | | (LAB) | | | SERVICES, | | | | | | CORE | | + +---------+ + + + | POTASSIUM | No Hemo | | [facility] | | | CMNT | | | LABORATORY | | | | | | SERVICES, | | | | | | CORE | | + +---------+ + + + | ANION GAP | 8 | mmol/L | [facility] | | | | | | LABORATORY | | | | | | SERVICES, | | | | | | CORE | | + +---------+ + + + | ANION | 14 (H) | 4 - 11 mmol/L | [facility] | | | GAP(ALB | | | LABORATORY | | | CORRECTED) | | | SERVICES, | | | | | | CORE | | + +---------+ + + + + + | Specimen | + + | Blood - Blood | + + + + + | Narrative | Performed At | + + + | GFR is estimated using the MDRD equation recommended by the | [facility] | | National Kidney Disease Education Program. Estimated GFR | LABORATORY | | Interpretive Information: <60 mL/min/1.73 sq m | SERVICES, CORE | | Chronic Kidney Disease <15 mL/min/1.73 sq m | | | Kidney Failure Estimated GFR greater that 60 mL/min/1.73 sq m is of | | | limited clinical value. The MDRD equation is not valid in the | | | following situations: - Patients under 18 years of age - Severe | | | malnutrition or obesity - Vegetarian diet - Rapidly changing kidney | | | function | | + + + + + + + + | Performing | Address | City/State/Zipcode | Phone Number | | Organization | | | | + + + + + | [facility] | [address] | [place] [address] | | | SERVICES, CORE | [address] | | | + + + + + RENAL FUNCTION SET (NA,K,CL,CO2,BUN,CREAT,GLUC,CA,PHOS,ALB ) (04/29/2014 10:51 PM PST) + +---------+ + + + | Component | Value | Ref Range | Performed | Pathologist | | | | | At | Signature | + +---------+ + + + | GLUCOSE, | 83 | 60 - 99 mg/dL | [facility] | | | PLASMA | | | LABORATORY | | | (LAB) | | | SERVICES, | | | | | | CORE | | + +---------+ + + + | BUN, PLASMA | 37 (H) | 6 - 20 mg/dL | [facility] | | | (LAB) | | | LABORATORY | | | | | | SERVICES, | | | | | | CORE | | + +---------+ + + + | CREATININE | 0.80 | 0.60 - 1.10 | [facility] | | | PLASMA | | mg/dL | LABORATORY | | | (LAB) | | | SERVICES, | | | | | | CORE | | + +---------+ + + + | EGFR | >60 | >60 mL/min | [facility] | | | - | | | LABORATORY | | | KYRGYZ | | | SERVICES, | | | | | | CORE | | + +---------+ + + + | EGFR NON | >60 | >60 mL/min | [facility] | | | -LUIS | | | LABORATORY | | | RICAN | | | SERVICES, | | | | | | CORE | | + +---------+ + + + | SODIUM, | 146 (H) | 136 - 145 | [facility] | | | PLASMA | | mmol/L | LABORATORY | | | (LAB) | | | SERVICES, | | | | | | CORE | | + +---------+ + + + | POTASSIUM, | 3.0 (L) | 3.4 - 5.0 | [facility] | | | PLASMA | | mmol/L | LABORATORY | | | (LAB) | | | SERVICES, | | | | | | CORE | | + +---------+ + + + | CHLORIDE, | 106 | 97 - 108 mmol/L | [facility] | | | PLASMA | | | LABORATORY | | | (LAB) | | | SERVICES, | | | | | | CORE | | + +---------+ + + + | TOTAL CO2, | 33 (H) | 21 - 32 mmol/L | [facility] | | | PLASMA | | | LABORATORY | | | (LAB) | | | SERVICES, | | | | | | CORE | | + +---------+ + + + | CALCIUM, | 8.9 | 8.6 - 10.2 | [facility] | | | PLASMA | | mg/dL | LABORATORY | | | (LAB) | | | SERVICES, | | | | | | CORE | | + +---------+ + + + | ALBUMIN, | 1.7 (L) | 3.5 - 4.7 g/dL | [facility] | | | PLASMA | | | LABORATORY | | | (LAB) | | | SERVICES, | | | | | | CORE | | + +---------+ + + + | PHOSPHORUS, | 2.4 | 2.4 - 4.7 mg/dL | [facility] | | | PLASMA | | | LABORATORY | | | (LAB) | | | SERVICES, | | | | | | CORE | | + +---------+ + + + | POTASSIUM | No Hemo | | [facility] | | | CMNT | | | LABORATORY | | | | | | SERVICES, | | | | | | CORE | | + +---------+ + + + | ANION GAP | 7 | mmol/L | [facility] | | | | | | LABORATORY | | | | | | SERVICES, | | | | | | CORE | | + +---------+ + + + | ANION | 12 (H) | 4 - 11 mmol/L | [facility] | | | GAP(ALB | | | LABORATORY | | | CORRECTED) | | | SERVICES, | | | | | | CORE | | + +---------+ + + + + + | Specimen | + + | Blood - Blood | + + + + + | Narrative | Performed At | + + + | GFR is estimated using the MDRD equation recommended by the | [facility] | | National Kidney Disease Education Program. Estimated GFR | LABORATORY | | Interpretive Information: <60 mL/min/1.73 sq m | SERVICES, CORE | | Chronic Kidney Disease <15 mL/min/1.73 sq m | | | Kidney Failure Estimated GFR greater that 60 mL/min/1.73 sq m is of | | | limited clinical value. The MDRD equation is not valid in the | | | following situations: - Patients under 18 years of age - Severe | | | malnutrition or obesity - Vegetarian diet - Rapidly changing kidney | | | function | | + + + + + + + + | Performing | Address | City/State/Zipcode | Phone Number | | Organization | | | | + + + + + | [facility] | [address] | [place] [address] | | | ARON, JANELL | [address] | | | + + + + + CAPILLARY BLOOD GLUCOSE (NO CHG), POC (04/29/2014 1:10 AM PST) + +---------+ + + + | Component | Value | Ref Range | Performed | Pathologist | | | | | At | Signature | + +---------+ + + + | BLOOD | 113 (H) | 60 - 99 mg/dL | [facility] - | | | GLUCOSE, | | | [facility] | | | POC | | | [facility] | | | | | | OF CARE | | | | | | TESTS | | + +---------+ + + + + + | Specimen | + + | | + + + + + + + | Performing | Address | City/State/Zipcode | Phone Number | | Organization | | | | + + + + + | [facility] | [address] | [place], [place] | | | [place] | [address] | [phone] | | | TESTS | | | | + + + + + CBC (HEMOGRAM) ONLY (04/29/2014 1:00 AM PST) + + + + + + | Component | Value | Ref Range | Performed | Pathologist | | | | | At | Signature | + + + + + + | WHITE CELL | 26.15 (H) | 4.40 - 11.00 | [facility] | | | COUNT | | K/cu mm | LABORATORY | | | | | | SERVICES, | | | | | | CORE | | + + + + + + | RED CELL | 3.13 (L) | 4.00 - 5.20 | [facility] | | | COUNT | | M/cu mm | LABORATORY | | | | | | SERVICES, | | | | | | CORE | | + + + + + + | HEMOGLOBIN | 9.2 (L) | 12.0 - 16.0 | [facility] | | | | | g/dL | LABORATORY | | | | | | SERVICES, | | | | | | CORE | | + + + + + + | HEMATOCRIT | 29.5 (L) | 36.0 - 46.0 % | [facility] | | | | | | LABORATORY | | | | | | SERVICES, | | | | | | CORE | | + + + + + + | MCV | 94.2 | 80.0 - 96.0 fL | [facility] | | | | | | LABORATORY | | | | | | SERVICES, | | | | | | CORE | | + + + + + + | MCHC | 31.2 | 33.0 - 35.5 | [facility] | | | | | g/dL | LABORATORY | | | | | | SERVICES, | | | | | | CORE | | + + + + + + | RDW SD | 55.5 (H) | 35.1 - 46.3 fL | [facility] | | | | | | LABORATORY | | | | | | SERVICES, | | | | | | CORE | | + + + + + + | PLATELET | 71 (L) | 150 - 400 K/cu | [facility] | | | COUNT | | mm | LABORATORY | | | | | | SERVICES, | | | | | | CORE | | + + + + + + | MPV | 12.9 (H) | 9.7 - 12.3 fL | [facility] | | | | | | LABORATORY | | | | | | SERVICES, | | | | | | CORE | | + + + + + + | NRBC% | 10.6 (H) | 0.0 - 0.3 % | [facility] | | | | | | LABORATORY | | | | | | SERVICES, | | | | | | CORE | | + + + + + + | NRBC# | 2.78 (H) | 0.00 - 0.02 | [facility] | | | | | K/cu mm | LABORATORY | | | | | | SERVICES, | | | | | | CORE | | + + + + + + + + | Specimen | + + | Blood - Blood | + + + + + + + | Performing | Address | City/State/Zipcode | Phone Number | | Organization | | | | + + + + + | [facility] | [address] | [place] [id number] | | | SERVICES, CORE | [address] | | | + + + + + MAGNESIUM, PLASMA (04/29/2014 1:00 AM PST) + +---------+ + + + | Component | Value | Ref Range | Performed | Pathologist | | | | | At | Signature | + +---------+ + + + | MAGNESIUM,P | 1.7 (L) | 1.8 - 2.5 mg/dL | [facility] | | | LASMA | | | LABORATORY | | | | | | SERVICES, | | | | | | CORE | | + +---------+ + + + + + | Specimen | + + | Blood - Blood | + + + + + + + | Performing | Address | City/State/Zipcode | Phone Number | | Organization | | | | + + + + + | [facility] | [address] | [place] [address] | | | SERVICES, CORE | [address] | | | + + + + + RENAL FUNCTION SET (NA,K,CL,CO2,BUN,CREAT,GLUC,CA,PHOS,ALB ) (04/29/2014 1:00 AM PST) + +---------+ + + + | Component | Value | Ref Range | Performed | Pathologist | | | | | At | Signature | + +---------+ + + + | GLUCOSE, | 104 (H) | 60 - 99 mg/dL | [facility] | | | PLASMA | | | LABORATORY | | | (LAB) | | | SERVICES, | | | | | | CORE | | + +---------+ + + + | BUN, PLASMA | 37 (H) | 6 - 20 mg/dL | [facility] | | | (LAB) | | | LABORATORY | | | | | | SERVICES, | | | | | | CORE | | + +---------+ + + + | CREATININE | 0.68 | 0.60 - 1.10 | [facility] | | | PLASMA | | mg/dL | LABORATORY | | | (LAB) | | | SERVICES, | | | | | | CORE | | + +---------+ + + + | EGFR | >60 | >60 mL/min | [facility] | | | - | | | LABORATORY | | | KYRGYZ | | | SERVICES, | | | | | | CORE | | + +---------+ + + + | EGFR NON | >60 | >60 mL/min | [facility] | | | -LUIS | | | LABORATORY | | | RICAN | | | SERVICES, | | | | | | CORE | | + +---------+ + + + | SODIUM, | 144 | 136 - 145 | [facility] | | | PLASMA | | mmol/L | LABORATORY | | | (LAB) | | | SERVICES, | | | | | | CORE | | + +---------+ + + + | POTASSIUM, | 3.7 | 3.4 - 5.0 | [facility] | | | PLASMA | | mmol/L | LABORATORY | | | (LAB) | | | SERVICES, | | | | | | CORE | | + +---------+ + + + | CHLORIDE, | 110 (H) | 97 - 108 mmol/L | [facility] | | | PLASMA | | | LABORATORY | | | (LAB) | | | SERVICES, | | | | | | CORE | | + +---------+ + + + | TOTAL CO2, | 28 | 21 - 32 mmol/L | [facility] | | | PLASMA | | | LABORATORY | | | (LAB) | | | SERVICES, | | | | | | CORE | | + +---------+ + + + | CALCIUM, | 8.6 | 8.6 - 10.2 | [facility] | | | PLASMA | | mg/dL | LABORATORY | | | (LAB) | | | SERVICES, | | | | | | CORE | | + +---------+ + + + | ALBUMIN, | 1.7 (L) | 3.5 - 4.7 g/dL | [facility] | | | PLASMA | | | LABORATORY | | | (LAB) | | | SERVICES, | | | | | | CORE | | + +---------+ + + + | PHOSPHORUS, | 2.7 | 2.4 - 4.7 mg/dL | [facility] | | | PLASMA | | | LABORATORY | | | (LAB) | | | SERVICES, | | | | | | CORE | | + +---------+ + + + | POTASSIUM | No Hemo | | [facility] | | | CMNT | | | LABORATORY | | | | | | SERVICES, | | | | | | CORE | | + +---------+ + + + | ANION GAP | 6 | mmol/L | [facility] | | | | | | LABORATORY | | | | | | SERVICES, | | | | | | CORE | | + +---------+ + + + | ANION | 11 | 4 - 11 mmol/L | [facility] | | | GAP(ALB | | | LABORATORY | | | CORRECTED) | | | SERVICES, | | | | | | CORE | | + +---------+ + + + + + | Specimen | + + | Blood - Blood | + + + + + | Narrative | Performed At | + + + | GFR is estimated using the MDRD equation recommended by the | [facility] | | National Kidney Disease Education Program. Estimated GFR | LABORATORY | | Interpretive Information: <60 mL/min/1.73 sq m | SERVICES, CORE | | Chronic Kidney Disease <15 mL/min/1.73 sq m | | | Kidney Failure Estimated GFR greater that 60 mL/min/1.73 sq m is of | | | limited clinical value. The MDRD equation is not valid in the | | | following situations: - Patients under 18 years of age - Severe | | | malnutrition or obesity - Vegetarian diet - Rapidly changing kidney | | | function | | + + + + + + + + | Performing | Address | City/State/Zipcode | Phone Number | | Organization | | | | + + + + + | [facility] | [address] | [place] [address] | | | ARON, JANELL | [address] | | | + + + + + INR (04/29/2014 1:00 AM PST) + +-------+ + + + | Component | Value | Ref Range | Performed | Pathologist | | | | | At | Signature | + +-------+ + + + | INR | 1.02 | 0.90 - 1.20 INR | [facility] | | | | | | LABORATORY | | | | | | SERVICES, | | | | | | CORE | | + +-------+ + + + + + | Specimen | + + | Blood - Blood | + + + + + | Narrative | Performed At | + + + | INR Therapeutic ranges for full anticoagulation: INR for | [facility] | | Venous Thromboembolism (2.0 - 3.0) INR INR for | LABORATORY | | most patients with mech. valves (2.5 - 3.5) INR | JANELL SHARP | + + + + + + + + | Performing | Address | City/State/Zipcode | Phone Number | | Organization | | | | + + + + + | [facility] | [address] | [place] [address] | | | SERVICES, JANELL | [address] | | | + + + + + LIVER SET (AST,ALT,BILI TOTAL,BILI DIRECT,ALK PHOS,ALB,PROT TOTAL) (04/29/2014 1:00 AM PST ) + +---------+ + + + | Component | Value | Ref Range | Performed | Pathologist | | | | | At | Signature | + +---------+ + + + | ALBUMIN, | 1.7 (L) | 3.5 - 4.7 g/dL | [facility] | | | PLASMA | | | LABORATORY | | | (LAB) | | | SERVICES, | | | | | | CORE | | + +---------+ + + + | BILIRUBIN | 1.7 (H) | 0.3 - 1.2 mg/dL | [facility] | | | TOTAL | | | LABORATORY | | | | | | SERVICES, | | | | | | CORE | | + +---------+ + + + | BILIRUBIN | 0.5 (H) | 0.0 - 0.3 mg/dL | [facility] | | | DIRECT | | | LABORATORY | | | | | | SERVICES, | | | | | | CORE | | + +---------+ + + + | ALK PHOS | 351 (H) | 42 - 98 U/L | [facility] | | | | | | LABORATORY | | | | | | SERVICES, | | | | | | CORE | | + +---------+ + + + | AST(SGOT) | 80 (H) | 15 - 41 U/L | [facility] | | | | | | LABORATORY | | | | | | SERVICES, | | | | | | CORE | | + +---------+ + + + | ALT (SGPT) | 184 (H) | 12 - 60 U/L | [facility] | | | | | | LABORATORY | | | | | | SERVICES, | | | | | | CORE | | + +---------+ + + + | TOTAL | 5.3 (L) | 6.4 - 8.2 g/dL | [facility] | | | PROTEIN, | | | LABORATORY | | | PLASMA | | | SERVICES, | | | (LAB) | | | CORE | | + +---------+ + + + | AST CMNT | No Hemo | | [facility] | | | | | | LABORATORY | | | | | | SERVICES, | | | | | | CORE | | + +---------+ + + + | BILI T CMNT | No Hemo | | [facility] | | | | | | LABORATORY | | | | | | SERVICES, | | | | | | CORE | | + +---------+ + + + | BILI D CMNT | No Hemo | | [facility] | | | | | | LABORATORY | | | | | | SERVICES, | | | | | | CORE | | + +---------+ + + + + + | Specimen | + + | Blood - Blood | + + + + + + + | Performing | Address | City/State/Zipcode | Phone Number | | Organization | | | | + + + + + | [facility] | [address] | [place] [address] | | | SERVICES, CORE | [address] | | | + + + + + CAPILLARY BLOOD GLUCOSE (NO CHG), POC (04/28/2014 8:17 AM PST) + +---------+ + + + | Component | Value | Ref Range | Performed | Pathologist | | | | | At | Signature | + +---------+ + + + | BLOOD | 146 (H) | 60 - 99 mg/dL | [facility] - | | | GLUCOSE, | | | [facility] | | | POC | | | [facility] | | | | | | OF CARE | | | | | | TESTS | | + +---------+ + + + + + | Specimen | + + | | + + + + + + + | Performing | Address | City/State/Zipcode | Phone Number | | Organization | | | | + + + + + | [facility] | [address] | [place], [place] | | | [facility] | [address] | [address] | | | TESTS | | | | + + + + + CBC (HEMOGRAM) ONLY (04/28/2014 8:00 AM PST) + + + + + + | Component | Value | Ref Range | Performed | Pathologist | | | | | At | Signature | + + + + + + | WHITE CELL | 26.02 (H) | 4.40 - 11.00 | [facility] | | | COUNT | | K/cu mm | LABORATORY | | | | | | SERVICES, | | | | | | CORE | | + + + + + + | RED CELL | 3.03 (L) | 4.00 - 5.20 | [facility] | | | COUNT | | M/cu mm | LABORATORY | | | | | | SERVICES, | | | | | | CORE | | + + + + + + | HEMOGLOBIN | 9.1 (L) | 12.0 - 16.0 | [facility] | | | | | g/dL | LABORATORY | | | | | | SERVICES, | | | | | | CORE | | + + + + + + | HEMATOCRIT | 28.3 (L) | 36.0 - 46.0 % | [facility] | | | | | | LABORATORY | | | | | | SERVICES, | | | | | | CORE | | + + + + + + | MCV | 93.4 | 80.0 - 96.0 fL | [facility] | | | | | | LABORATORY | | | | | | SERVICES, | | | | | | CORE | | + + + + + + | MCHC | 32.2 | 33.0 - 35.5 | [facility] | | | | | g/dL | LABORATORY | | | | | | SERVICES, | | | | | | CORE | | + + + + + + | RDW SD | 54.8 (H) | 35.1 - 46.3 fL | [facility] | | | | | | LABORATORY | | | | | | SERVICES, | | | | | | CORE | | + + + + + + | PLATELET | 76 (L) | 150 - 400 K/cu | [facility] | | | COUNT | | mm | LABORATORY | | | | | | SERVICES, | | | | | | CORE | | + + + + + + | MPV | 13.5 (H) | 9.7 - 12.3 fL | [facility] | | | | | | LABORATORY | | | | | | SERVICES, | | | | | | CORE | | + + + + + + | NRBC% | 10.6 (H) | 0.0 - 0.3 % | [facility] | | | | | | LABORATORY | | | | | | SERVICES, | | | | | | CORE | | + + + + + + | NRBC# | 2.75 (H) | 0.00 - 0.02 | [facility] | | | | | K/cu mm | LABORATORY | | | | | | SERVICES, | | | | | | CORE | | + + + + + + + + | Specimen | + + | Blood - Blood | + + + + + + + | Performing | Address | City/State/Zipcode | Phone Number | | Organization | | | | + + + + + | [facility] | [address] | [place] [address] | | | SERVICES, CORE | [address] | | | + + + + + INR (04/28/2014 8:00 AM PST) + +-------+ + + + | Component | Value | Ref Range | Performed | Pathologist | | | | | At | Signature | + +-------+ + + + | INR | 1.03 | 0.90 - 1.20 INR | [facility] | | | | | | LABORATORY | | | | | | SERVICES, | | | | | | CORE | | + +-------+ + + + + + | Specimen | + + | Blood - Blood | + + + + + | Narrative | Performed At | + + + | INR Therapeutic ranges for full anticoagulation: INR for | [facility] | | Venous Thromboembolism (2.0 - 3.0) INR INR for | LABORATORY | | most patients with mech. valves (2.5 - 3.5) INR | SERVICES, CORE | + + + + + + + + | Performing | Address | City/State/Zipcode | Phone Number | | Organization | | | | + + + + + | [facility] | [address] | [place] [address] | | | SERVICES, CORE | [address] | | | + + + + + CBC (HEMOGRAM) ONLY (04/28/2014 3:45 AM PST) + + + + + + | Component | Value | Ref Range | Performed | Pathologist | | | | | At | Signature | + + + + + + | WHITE CELL | 26.69 (H) | 4.40 - 11.00 | [facility] | | | COUNT | | K/cu mm | LABORATORY | | | | | | SERVICES, | | | | | | CORE | | + + + + + + | RED CELL | 2.92 (L) | 4.00 - 5.20 | [facility] | | | COUNT | | M/cu mm | LABORATORY | | | | | | SERVICES, | | | | | | CORE | | + + + + + + | HEMOGLOBIN | 8.7 (L) | 12.0 - 16.0 | [facility] | | | | | g/dL | LABORATORY | | | | | | SERVICES, | | | | | | CORE | | + + + + + + | HEMATOCRIT | 27.1 (L) | 36.0 - 46.0 % | [facility] | | | | | | LABORATORY | | | | | | SERVICES, | | | | | | CORE | | + + + + + + | MCV | 92.8 | 80.0 - 96.0 fL | [facility] | | | | | | LABORATORY | | | | | | SERVICES, | | | | | | CORE | | + + + + + + | MCHC | 32.1 | 33.0 - 35.5 | [facility] | | | | | g/dL | LABORATORY | | | | | | SERVICES, | | | | | | CORE | | + + + + + + | RDW SD | 54.4 (H) | 35.1 - 46.3 fL | [facility] | | | | | | LABORATORY | | | | | | SERVICES, | | | | | | CORE | | + + + + + + | PLATELET | 72 (L) | 150 - 400 K/cu | [facility] | | | COUNT | | mm | LABORATORY | | | | | | SERVICES, | | | | | | CORE | | + + + + + + | MPV | 12.7 (H) | 9.7 - 12.3 fL | [facility] | | | | | | LABORATORY | | | | | | SERVICES, | | | | | | CORE | | + + + + + + | NRBC% | 8.9 (H) | 0.0 - 0.3 % | [facility] | | | | | | LABORATORY | | | | | | SERVICES, | | | | | | CORE | | + + + + + + | NRBC# | 2.38 (H) | 0.00 - 0.02 | [facility] | | | | | K/cu mm | LABORATORY | | | | | | SERVICES, | | | | | | CORE | | + + + + + + + + | Specimen | + + | Blood - Blood | + + + + + + + | Performing | Address | City/State/Zipcode | Phone Number | | Organization | | | | + + + + + | [facility] | [address] | [place] [address] | | | SERVICES, CORE | [address] | | | + + + + + MAGNESIUM, PLASMA (04/28/2014 3:45 AM PST) + +-------+ + + + | Component | Value | Ref Range | Performed | Pathologist | | | | | At | Signature | + +-------+ + + + | MAGNESIUM,P | 1.9 | 1.8 - 2.5 mg/dL | [facility] | | | LASMA | | | LABORATORY | | | | | | SERVICES, | | | | | | CORE | | + +-------+ + + + + + | Specimen | + + | Blood - Blood | + + + + + + + | Performing | Address | City/State/Zipcode | Phone Number | | Organization | | | | + + + + + | [facility] | [address] | [place] [address] | | | SERVICES, CORE | [address] | | | + + + + + RENAL FUNCTION SET (NA,K,CL,CO2,BUN,CREAT,GLUC,CA,PHOS,ALB ) (04/28/2014 3:45 AM PST) + +---------+ + + + | Component | Value | Ref Range | Performed | Pathologist | | | | | At | Signature | + +---------+ + + + | GLUCOSE, | 100 (H) | 60 - 99 mg/dL | [facility] | | | PLASMA | | | LABORATORY | | | (LAB) | | | SERVICES, | | | | | | CORE | | + +---------+ + + + | BUN, PLASMA | 38 (H) | 6 - 20 mg/dL | [facility] | | | (LAB) | | | LABORATORY | | | | | | SERVICES, | | | | | | CORE | | + +---------+ + + + | CREATININE | 0.71 | 0.60 - 1.10 | [facility] | | | PLASMA | | mg/dL | LABORATORY | | | (LAB) | | | SERVICES, | | | | | | CORE | | + +---------+ + + + | EGFR | >60 | >60 mL/min | [facility] | | | - | | | LABORATORY | | | KYRGYZ | | | SERVICES, | | | | | | CORE | | + +---------+ + + + | EGFR NON | >60 | >60 mL/min | [facility] | | | -LUIS | | | LABORATORY | | | RICAN | | | SERVICES, | | | | | | CORE | | + +---------+ + + + | SODIUM, | 145 | 136 - 145 | [facility] | | | PLASMA | | mmol/L | LABORATORY | | | (LAB) | | | SERVICES, | | | | | | CORE | | + +---------+ + + + | POTASSIUM, | 3.5 | 3.4 - 5.0 | [facility] | | | PLASMA | | mmol/L | LABORATORY | | | (LAB) | | | SERVICES, | | | | | | CORE | | + +---------+ + + + | CHLORIDE, | 110 (H) | 97 - 108 mmol/L | [facility] | | | PLASMA | | | LABORATORY | | | (LAB) | | | SERVICES, | | | | | | CORE | | + +---------+ + + + | TOTAL CO2, | 30 | 21 - 32 mmol/L | [facility] | | | PLASMA | | | LABORATORY | | | (LAB) | | | SERVICES, | | | | | | CORE | | + +---------+ + + + | CALCIUM, | 8.4 (L) | 8.6 - 10.2 | [facility] | | | PLASMA | | mg/dL | LABORATORY | | | (LAB) | | | SERVICES, | | | | | | CORE | | + +---------+ + + + | ALBUMIN, | 1.7 (L) | 3.5 - 4.7 g/dL | [facility] | | | PLASMA | | | LABORATORY | | | (LAB) | | | SERVICES, | | | | | | CORE | | + +---------+ + + + | PHOSPHORUS, | 2.1 (L) | 2.4 - 4.7 mg/dL | [facility] | | | PLASMA | | | LABORATORY | | | (LAB) | | | SERVICES, | | | | | | CORE | | + +---------+ + + + | POTASSIUM | No Hemo | | [facility] | | | CMNT | | | LABORATORY | | | | | | SERVICES, | | | | | | CORE | | + +---------+ + + + | ANION GAP | 5 | mmol/L | [facility] | | | | | | LABORATORY | | | | | | SERVICES, | | | | | | CORE | | + +---------+ + + + | ANION | 10 | 4 - 11 mmol/L | [facility] | | | GAP(ALB | | | LABORATORY | | | CORRECTED) | | | SERVICES, | | | | | | CORE | | + +---------+ + + + + + | Specimen | + + | Blood - Blood | + + + + + | Narrative | Performed At | + + + | GFR is estimated using the MDRD equation recommended by the | [facility] | | National Kidney Disease Education Program. Estimated GFR | LABORATORY | | Interpretive Information: <60 mL/min/1.73 sq m | SERVICES, CORE | | Chronic Kidney Disease <15 mL/min/1.73 sq m | | | Kidney Failure Estimated GFR greater that 60 mL/min/1.73 sq m is of | | | limited clinical value. The MDRD equation is not valid in the | | | following situations: - Patients under 18 years of age - Severe | | | malnutrition or obesity - Vegetarian diet - Rapidly changing kidney | | | function | | + + + + + + + + | Performing | Address | City/State/Zipcode | Phone Number | | Organization | | | | + + + + + | [facility] | [address] | [place] [address] | | | SERVICES, JANELL | [address] | | | + + + + + HEPARIN, EITHER STANDARD / LMW, BLOOD (04/28/2014 3:00 AM PST) + +-------+ + + + | Component | Value | Ref Range | Performed | Pathologist | | | | | At | Signature | + +-------+ + + + | HEPARIN, | 0.63 | U/mL | [facility] | | | STD LMW | | | LABORATORY | | | | | | SERVICES, | | | | | | CORE | | + +-------+ + + + + + | Specimen | + + | Blood - Blood | + + + + + | Narrative | Performed At | + + + | Heparin, Either STD/LMW - Therapeutic Ranges: Heparin, | [facility] | | Unfractionated: 0.35 - 0.70 U/mL Enoxaparin, LMWH: 0.70 | LABORATORY | | - 1.20 U/mL Dalteparin, LMWH: 0.70 - 1.20 U/mL | SERVICES, CORE | | Tinzaparin, LMWH: Therapeutic range not established. | | | Preliminary studies suggest range | | | similar to dalteparin. Clinical | | | correlation required. | | | Heparin levels may be unreliable for: | | | Total bilirubin >28.8 mg/dL | | | Triglycerides >690 mg/dL | | | or Moderate to Gross Hemolysis | | + + + + + + + + | Performing | Address | City/State/Zipcode | Phone Number | | Organization | | | | + + + + + | [facility] | [address] | [place] [address] | | | ARON, JANELL | [address] | | | + + + + + HEPARIN, EITHER STANDARD / LMW, BLOOD (04/27/2014 8:00 PM PST) + +-------+ + + + | Component | Value | Ref Range | Performed | Pathologist | | | | | At | Signature | + +-------+ + + + | HEPARIN, | 1.04 | U/mL | [facility] | | | STD LMW | | | LABORATORY | | | | | | SERVICES, | | | | | | CORE | | + +-------+ + + + + + | Specimen | + + | Blood - Blood | + + + + + | Narrative | Performed At | + + + | Venous Disease Heparin Protocol Heparin level 6 hrs after every | [facility] | | heparin rate change; If heparin level within target range for 2 | LABORATORY | | consecutive results, recheck every AM Heparin, Either STD/LMW - | SERVICES, CORE | | Therapeutic Ranges: Heparin, Unfractionated: 0.35 - 0.70 U/mL | | | Enoxaparin, LMWH: 0.70 - 1.20 U/mL Dalteparin, LMWH: | | | 0.70 - 1.20 U/mL Tinzaparin, LMWH: Therapeutic | | | range not established. | | | Preliminary studies suggest range | | | similar to dalteparin. Clinical | | | correlation required. Heparin levels may be unreliable for: | | | Total bilirubin >28.8 mg/dL | | | Triglycerides >690 mg/dL | | | or Moderate to Gross Hemolysis | | + + + + + + + + | Performing | Address | City/State/Zipcode | Phone Number | | Organization | | | | + + + + + | [facility] | [address] | [place] [address] | | | SERVICES, CORE | [address] | | | + + + + + VASC LAB PORTABLE PSEUDOANEUR COMP LEFT (04/27/2014 12:47 PM PST) + + + + + + | Component | Value | Ref Range | Performed | Pathologist | | | | | At | Signature | + + + + + + | VASC LAB | PSEUDOANEURYSM DUPLEX | | | | | PORTABLE | EXAMINATION: | | | | | PSEUDOANEUR | 04/27/2014 Dictated | | | | | COMP LEFT | 04/27/2014 FINDINGS: | | | | | | Groin hematoma present | | | | | | measuring 2.1 x 1.1 cm. | | | | | | No evidence | | | | | | ofpseudoaneurysm. | | | | | | IMPRESSION: No evidence | | | | | | of femoral | | | | | | pseudoaneurysm. Groin | | | | | | hematoma present | | | | | | representingresolution | | | | | | of pseudoaneurysm. END | | | | | | IMPRESSION: Attending | | | | | | Radiologists: ,Author: | | | | | | MIRELA THOMPSON MD I | | | | | | have personally viewed | | | | | | this procedure/exam, | | | | | | reviewed this report, | | | | | | and madechanges to it | | | | | | where appropriate. | | | | | | Final/Electronically | | | | | | signed / MIRELA | | | | | | JAY Preliminary / | | | | | | Kirstie Latif | | | | | | | | | | + + + + + + + + | Specimen | + + | | + + + +---------+ + + | Performing | Address | City/State/Zipcode | Phone Number | | Organization | | | | + +---------+ + + | [facility] DEPARTMENT OF | | | | | RADIOLOGY | | | | + +---------+ + + HEPARIN, EITHER STANDARD / LMW, BLOOD (04/27/2014 12:04 PM PST) + +-------+ + + + | Component | Value | Ref Range | Performed | Pathologist | | | | | At | Signature | + +-------+ + + + | HEPARIN, | <0.10 | U/mL | [facility] | | | STD LMW | | | LABORATORY | | | | | | SERVICES, | | | | | | CORE | | + +-------+ + + + + + | Specimen | + + | Blood - Blood | + + + + + | Narrative | Performed At | + + + | Venous Disease Heparin Protocol Heparin level 6 hrs after every | [facility] | | heparin rate change; If heparin level within target range for 2 | LABORATORY | | consecutive results, recheck every AM Heparin, Either STD/LMW - | SERVICES, CORE | | Therapeutic Ranges: Heparin, Unfractionated: 0.35 - 0.70 U/mL | | | Enoxaparin, LMWH: 0.70 - 1.20 U/mL Dalteparin, LMWH: | | | 0.70 - 1.20 U/mL Tinzaparin, LMWH: Therapeutic | | | range not established. | | | Preliminary studies suggest range | | | similar to dalteparin. Clinical | | | correlation required. Heparin levels may be unreliable for: | | | Total bilirubin >28.8 mg/dL | | | Triglycerides >690 mg/dL | | | or Moderate to Gross Hemolysis | | + + + + + + + + | Performing | Address | City/State/Zipcode | Phone Number | | Organization | | | | + + + + + | [facility] | [address] | [place] [address] | | | ARON, JANELL | [address] | | | + + + + + CAPILLARY BLOOD GLUCOSE (NO CHG), POC (04/27/2014 12:03 PM PST) + +---------+ + + + | Component | Value | Ref Range | Performed | Pathologist | | | | | At | Signature | + +---------+ + + + | BLOOD | 114 (H) | 60 - 99 mg/dL | [facility] - | | | GLUCOSE, | | | [facility] | | | POC | | | [facility] | | | | | | OF CARE | | | | | | TESTS | | + +---------+ + + + + + | Specimen | + + | | + + + + + + + | Performing | Address | City/State/Zipcode | Phone Number | | Organization | | | | + + + + + | [facility] | [address] | [place], [place] | | | [facility] | [address] | [phone] | | | TESTS | | | | + + + + + X-RAY ABD LTD FEEDING TUBE EVAL PORTABLE (04/27/2014 10:33 AM PST) + + + + + + | Component | Value | Ref Range | Performed | Pathologist | | | | | At | Signature | + + + + + + | X-RAY ABD | STUDY: VT ABD LTD | | | | | LTD FEEDING | FEEDING TUBE EVAL | | | | | TUBE EVAL | 04/27/14 10:33:00 | | | | | PORTABLE | HISTORY: Harish tube. | | | | | | COMPARISON: 04/24/2014. | | | | | | FINDINGS:There is a | | | | | | subdiaphragmatic | | | | | | weighted tip enteric | | | | | | tube, with distal | | | | | | tipoverlying the | | | | | | expected location of the | | | | | | stomach. There are | | | | | | right upper | | | | | | quadrantabdomen surgical | | | | | | clips. There are | | | | | | midline surgical skin | | | | | | diana. | | | | | | Embolizationmaterial is | | | | | | again seen overlying the | | | | | | left lower quadrant. | | | | | | The bowel gas patternis | | | | | | grossly nonobstructive. | | | | | | The osseous structures | | | | | | are unchanged. There is | | | | | | apartially outlined left | | | | | | basilar pleural | | | | | | effusion and likely | | | | | | associatedatelectasis. | | | | | | IMPRESSION: | | | | | | Subdiaphragmatic | | | | | | weighted tip enteric | | | | | | tube, with distal tip | | | | | | overlying theexpected | | | | | | location of the stomach. | | | | | | Attending Radiologists: | | | | | | VANCE RANJAN, | | | | | | MDAuthor: VANCE | | | | | | MD RANJAN I have | | | | | | personally viewed this | | | | | | procedure/exam, reviewed | | | | | | this report, and | | | | | | madechanges to it where | | | | | | appropriate. | | | | | | Final/Electronically | | | | | | signed / VANCE | | | | | | RANJAN 04/27/2014 11:31 | | | | | | AM | | | | + + + + + + + + | Specimen | + + | | + + + +---------+ + + | Performing | Address | City/State/Zipcode | Phone Number | | Organization | | | | + +---------+ + + | [facility] DEPARTMENT OF | | | | | RADIOLOGY | | | | + +---------+ + + C. DIFFICILE TOXIN (04/27/2014 8:32 AM PST) + + + + + + | Component | Value | Ref Range | Performed | Pathologist | | | | | At | Signature | + + + + + + | C.DIFFICILE | Negative | Negative | [facility] | | | TOXIN | | | LABORATORY | | | | | | SERVICES, | | | | | | CORE | | + + + + + + + + | Specimen | + + | Stool - Rectum | + + + + + + + | Performing | Address | City/State/Zipcode | Phone Number | | Organization | | | | + + + + + | [facility] | [address] | [place] [address] | | | ARON, JANELL | [address] | | | + + + + + HEPARIN, EITHER STANDARD / LMW, BLOOD (04/27/2014 4:33 AM PST) + +-------+ + + + | Component | Value | Ref Range | Performed | Pathologist | | | | | At | Signature | + +-------+ + + + | HEPARIN, | 0.24 | U/mL | [facility] | | | STD LMW | | | LABORATORY | | | | | | SERVICES, | | | | | | CORE | | + +-------+ + + + + + | Specimen | + + | Blood - Blood | + + + + + | Narrative | Performed At | + + + | Venous Disease Heparin Protocol Heparin level 6 hrs after every | [facility] | | heparin rate change; If heparin level within target range for 2 | LABORATORY | | consecutive results, recheck every AM Heparin, Either STD/LMW - | SERVICES, CORE | | Therapeutic Ranges: Heparin, Unfractionated: 0.35 - 0.70 U/mL | | | Enoxaparin, LMWH: 0.70 - 1.20 U/mL Dalteparin, LMWH: | | | 0.70 - 1.20 U/mL Tinzaparin, LMWH: Therapeutic | | | range not established. | | | Preliminary studies suggest range | | | similar to dalteparin. Clinical | | | correlation required. Heparin levels may be unreliable for: | | | Total bilirubin >28.8 mg/dL | | | Triglycerides >690 mg/dL | | | or Moderate to Gross Hemolysis | | + + + + + + + + | Performing | Address | City/State/Zipcode | Phone Number | | Organization | | | | + + + + + | [facility] | [address] | [place] [address] | | | SERVICES, CORE | [address] | | | + + + + + CBC (HEMOGRAM) ONLY (04/27/2014 4:33 AM PST) + + + + + + | Component | Value | Ref Range | Performed | Pathologist | | | | | At | Signature | + + + + + + | WHITE CELL | 25.98 (H) | 4.40 - 11.00 | [facility] | | | COUNT | | K/cu mm | LABORATORY | | | | | | SERVICES, | | | | | | CORE | | + + + + + + | RED CELL | 2.71 (L) | 4.00 - 5.20 | [facility] | | | COUNT | | M/cu mm | LABORATORY | | | | | | SERVICES, | | | | | | CORE | | + + + + + + | HEMOGLOBIN | 8.0 (L) | 12.0 - 16.0 | [facility] | | | | | g/dL | LABORATORY | | | | | | SERVICES, | | | | | | CORE | | + + + + + + | HEMATOCRIT | 25.5 (L) | 36.0 - 46.0 % | [facility] | | | | | | LABORATORY | | | | | | SERVICES, | | | | | | CORE | | + + + + + + | MCV | 94.1 | 80.0 - 96.0 fL | [facility] | | | | | | LABORATORY | | | | | | SERVICES, | | | | | | CORE | | + + + + + + | MCHC | 31.4 | 33.0 - 35.5 | [facility] | | | | | g/dL | LABORATORY | | | | | | SERVICES, | | | | | | CORE | | + + + + + + | RDW SD | 56.2 (H) | 35.1 - 46.3 fL | [facility] | | | | | | LABORATORY | | | | | | SERVICES, | | | | | | CORE | | + + + + + + | PLATELET | 54 (L) | 150 - 400 K/cu | [facility] | | | COUNT | | mm | LABORATORY | | | | | | SERVICES, | | | | | | CORE | | + + + + + + | MPV | 12.2 | 9.7 - 12.3 fL | [facility] | | | | | | LABORATORY | | | | | | SERVICES, | | | | | | CORE | | + + + + + + | NRBC% | 6.7 (H) | 0.0 - 0.3 % | [facility] | | | | | | LABORATORY | | | | | | SERVICES, | | | | | | CORE | | + + + + + + | NRBC# | 1.75 (H) | 0.00 - 0.02 | [facility] | | | | | K/cu mm | LABORATORY | | | | | | SERVICES, | | | | | | CORE | | + + + + + + + + | Specimen | + + | Blood - Blood | + + + + + + + | Performing | Address | City/State/Zipcode | Phone Number | | Organization | | | | + + + + + | [facility] | [address] | [place] [address] | | | SERVICES, CORE | [address] | | | + + + + + MAGNESIUM, PLASMA (04/27/2014 4:33 AM PST) + +-------+ + + + | Component | Value | Ref Range | Performed | Pathologist | | | | | At | Signature | + +-------+ + + + | MAGNESIUM,P | 1.9 | 1.8 - 2.5 mg/dL | [facility] | | | LASMA | | | LABORATORY | | | | | | SERVICES, | | | | | | CORE | | + +-------+ + + + + + | Specimen | + + | Blood - Blood | + + + + + + + | Performing | Address | City/State/Zipcode | Phone Number | | Organization | | | | + + + + + | [facility] | [address] | [place] [address] | | | SERVICES, CORE | [address] | | | + + + + + RENAL FUNCTION SET (NA,K,CL,CO2,BUN,CREAT,GLUC,CA,PHOS,ALB ) (04/27/2014 4:33 AM PST) + +---------+ + + + | Component | Value | Ref Range | Performed | Pathologist | | | | | At | Signature | + +---------+ + + + | GLUCOSE, | 86 | 60 - 99 mg/dL | [facility] | | | PLASMA | | | LABORATORY | | | (LAB) | | | SERVICES, | | | | | | CORE | | + +---------+ + + + | BUN, PLASMA | 46 (H) | 6 - 20 mg/dL | [facility] | | | (LAB) | | | LABORATORY | | | | | | SERVICES, | | | | | | CORE | | + +---------+ + + + | CREATININE | 0.86 | 0.60 - 1.10 | [facility] | | | PLASMA | | mg/dL | LABORATORY | | | (LAB) | | | SERVICES, | | | | | | CORE | | + +---------+ + + + | EGFR | >60 | >60 mL/min | [facility] | | | - | | | LABORATORY | | | KYRGYZ | | | SERVICES, | | | | | | CORE | | + +---------+ + + + | EGFR NON | >60 | >60 mL/min | [facility] | | | -LUIS | | | LABORATORY | | | RICAN | | | SERVICES, | | | | | | CORE | | + +---------+ + + + | SODIUM, | 152 (H) | 136 - 145 | [facility] | | | PLASMA | | mmol/L | LABORATORY | | | (LAB) | | | SERVICES, | | | | | | CORE | | + +---------+ + + + | POTASSIUM, | 4.1 | 3.4 - 5.0 | [facility] | | | PLASMA | | mmol/L | LABORATORY | | | (LAB) | | | SERVICES, | | | | | | CORE | | + +---------+ + + + | CHLORIDE, | 115 (H) | 97 - 108 mmol/L | [facility] | | | PLASMA | | | LABORATORY | | | (LAB) | | | SERVICES, | | | | | | CORE | | + +---------+ + + + | TOTAL CO2, | 33 (H) | 21 - 32 mmol/L | [facility] | | | PLASMA | | | LABORATORY | | | (LAB) | | | SERVICES, | | | | | | CORE | | + +---------+ + + + | CALCIUM, | 8.8 | 8.6 - 10.2 | [facility] | | | PLASMA | | mg/dL | LABORATORY | | | (LAB) | | | SERVICES, | | | | | | CORE | | + +---------+ + + + | ALBUMIN, | 1.7 (L) | 3.5 - 4.7 g/dL | [facility] | | | PLASMA | | | LABORATORY | | | (LAB) | | | SERVICES, | | | | | | CORE | | + +---------+ + + + | PHOSPHORUS, | 2.5 | 2.4 - 4.7 mg/dL | [facility] | | | PLASMA | | | LABORATORY | | | (LAB) | | | SERVICES, | | | | | | CORE | | + +---------+ + + + | POTASSIUM | No Hemo | | [facility] | | | CMNT | | | LABORATORY | | | | | | SERVICES, | | | | | | CORE | | + +---------+ + + + | ANION GAP | 4 | mmol/L | [facility] | | | | | | LABORATORY | | | | | | SERVICES, | | | | | | CORE | | + +---------+ + + + | ANION | 9 | 4 - 11 mmol/L | [facility] | | | GAP(ALB | | | LABORATORY | | | CORRECTED) | | | SERVICES, | | | | | | CORE | | + +---------+ + + + + + | Specimen | + + | Blood - Blood | + + + + + | Narrative | Performed At | + + + | GFR is estimated using the MDRD equation recommended by the | [facility] | | National Kidney Disease Education Program. Estimated GFR | LABORATORY | | Interpretive Information: <60 mL/min/1.73 sq m | SERVICES, CORE | | Chronic Kidney Disease <15 mL/min/1.73 sq m | | | Kidney Failure Estimated GFR greater that 60 mL/min/1.73 sq m is of | | | limited clinical value. The MDRD equation is not valid in the | | | following situations: - Patients under 18 years of age - Severe | | | malnutrition or obesity - Vegetarian diet - Rapidly changing kidney | | | function | | + + + + + + + + | Performing | Address | City/State/Zipcode | Phone Number | | Organization | | | | + + + + + | [facility] | [address] | [place] [address] | | | SERVICES, CORE | [address] | | | + + + + + LIVER SET (AST,ALT,BILI TOTAL,BILI DIRECT,ALK PHOS,ALB,PROT TOTAL) (04/27/2014 4:33 AM PST ) + +---------+ + + + | Component | Value | Ref Range | Performed | Pathologist | | | | | At | Signature | + +---------+ + + + | ALBUMIN, | 1.7 (L) | 3.5 - 4.7 g/dL | [facility] | | | PLASMA | | | LABORATORY | | | (LAB) | | | SERVICES, | | | | | | CORE | | + +---------+ + + + | BILIRUBIN | 1.6 (H) | 0.3 - 1.2 mg/dL | [facility] | | | TOTAL | | | LABORATORY | | | | | | SERVICES, | | | | | | CORE | | + +---------+ + + + | BILIRUBIN | 0.8 (H) | 0.0 - 0.3 mg/dL | [facility] | | | DIRECT | | | LABORATORY | | | | | | SERVICES, | | | | | | CORE | | + +---------+ + + + | ALK PHOS | 235 (H) | 42 - 98 U/L | [facility] | | | | | | LABORATORY | | | | | | SERVICES, | | | | | | CORE | | + +---------+ + + + | AST(SGOT) | 216 (H) | 15 - 41 U/L | [facility] | | | | | | LABORATORY | | | | | | SERVICES, | | | | | | CORE | | + +---------+ + + + | ALT (SGPT) | 344 (H) | 12 - 60 U/L | [facility] | | | | | | LABORATORY | | | | | | SERVICES, | | | | | | CORE | | + +---------+ + + + | TOTAL | 4.8 (L) | 6.4 - 8.2 g/dL | [facility] | | | PROTEIN, | | | LABORATORY | | | PLASMA | | | SERVICES, | | | (LAB) | | | CORE | | + +---------+ + + + | AST CMNT | No Hemo | | [facility] | | | | | | LABORATORY | | | | | | SERVICES, | | | | | | CORE | | + +---------+ + + + | BILI T CMNT | No Hemo | | [facility] | | | | | | LABORATORY | | | | | | SERVICES, | | | | | | CORE | | + +---------+ + + + | BETINA Barrett CMNT | No Hemo | | [facility] | | | | | | LABORATORY | | | | | | SERVICES, | | | | | | CORE | | + +---------+ + + + + + | Specimen | + + | Blood - Blood | + + + + + + + | Performing | Address | City/State/Zipcode | Phone Number | | Organization | | | | + + + + + | [facility] | [id number] | [place] [address] | | | SERVICES, [place] | [address] | | | + + + + + CBC (HEMOGRAM) ONLY (04/26/2014 10:02 PM PST) + + + + + + | Component | Value | Ref Range | Performed | Pathologist | | | | | At | Signature | + + + + + + | WHITE CELL | 26.76 (H) | 4.40 - 11.00 | [facility] | | | COUNT | | K/cu mm | LABORATORY | | | | | | SERVICES, | | | | | | CORE | | + + + + + + | RED CELL | 2.60 (L) | 4.00 - 5.20 | [facility] | | | COUNT | | M/cu mm | LABORATORY | | | | | | SERVICES, | | | | | | CORE | | + + + + + + | HEMOGLOBIN | 7.7 (L) | 12.0 - 16.0 | [facility] | | | | | g/dL | LABORATORY | | | | | | SERVICES, | | | | | | CORE | | + + + + + + | HEMATOCRIT | 24.3 (L) | 36.0 - 46.0 % | [facility] | | | | | | LABORATORY | | | | | | SERVICES, | | | | | | CORE | | + + + + + + | MCV | 93.5 | 80.0 - 96.0 fL | [facility] | | | | | | LABORATORY | | | | | | SERVICES, | | | | | | CORE | | + + + + + + | MCHC | 31.7 | 33.0 - 35.5 | [facility] | | | | | g/dL | LABORATORY | | | | | | SERVICES, | | | | | | CORE | | + + + + + + | RDW SD | 56.1 (H) | 35.1 - 46.3 fL | [facility] | | | | | | LABORATORY | | | | | | SERVICES, | | | | | | CORE | | + + + + + + | PLATELET | 42 (L) | 150 - 400 K/cu | [facility] | | | COUNT | | mm | LABORATORY | | | | | | SERVICES, | | | | | | CORE | | + + + + + + | MPV | 12.6 (H) | 9.7 - 12.3 fL | [facility] | | | | | | LABORATORY | | | | | | SERVICES, | | | | | | CORE | | + + + + + + | NRBC% | 6.2 (H) | 0.0 - 0.3 % | [facility] | | | | | | LABORATORY | | | | | | SERVICES, | | | | | | CORE | | + + + + + + | NRBC# | 1.66 (H) | 0.00 - 0.02 | [facility] | | | | | K/cu mm | LABORATORY | | | | | | SERVICES, | | | | | | CORE | | + + + + + + + + | Specimen | + + | Blood - Blood | + + + + + + + | Performing | Address | City/State/Zipcode | Phone Number | | Organization | | | | + + + + + | [facility] | [id number] | [place] [address] | | | SERVICES, CORE | [address] | | | + + + + + APTT (ACT. PART. THROMBO TIME) (04/26/2014 10:02 PM PST) + + + + + + | Component | Value | Ref Range | Performed | Pathologist | | | | | At | Signature | + + + + + + | APTT | >200.0 (HH) | 26.0 - 36.0 | [facility] | | | | | seconds | LABORATORY | | | | | | SERVICES, | | | | | | CORE | | + + + + + + + + | Specimen | + + | Blood - Blood | + + + + + | Narrative | Performed At | + + + | APTT Therapeutic Range: (75 - | [facility] | | 120) sec Heparin levels of 0.35 - 0.7 U/mL | LABORATORY | | | SERVICES, CORE | + + + + + + + + | Performing | Address | City/State/Zipcode | Phone Number | | Organization | | | | + + + + + | [facility] | [address] | [place] [address] | | | SERVICES, CORE | [address] | | | + + + + + INR (04/26/2014 10:02 PM PST) + +-------+ + + + | Component | Value | Ref Range | Performed | Pathologist | | | | | At | Signature | + +-------+ + + + | INR | 1.04 | 0.90 - 1.20 INR | [facility] | | | | | | LABORATORY | | | | | | SERVICES, | | | | | | CORE | | + +-------+ + + + + + | Specimen | + + | Blood - Blood | + + + + + | Narrative | Performed At | + + + | INR Therapeutic ranges for full anticoagulation: INR for | [facility] | | Venous Thromboembolism (2.0 - 3.0) INR INR for | LABORATORY | | most patients with mech. valves (2.5 - 3.5) INR | SERVICES, CORE | + + + + + + + + | Performing | Address | City/State/Zipcode | Phone Number | | Organization | | | | + + + + + | [facility] | [address] | [place] [address] | | | SERVICES, CORE | [address] | | | + + + + + MAGNESIUM, PLASMA (04/26/2014 7:41 PM PST) + +-------+ + + + | Component | Value | Ref Range | Performed | Pathologist | | | | | At | Signature | + +-------+ + + + | MAGNESIUM,P | 2.0 | 1.8 - 2.5 mg/dL | [facility] | | | LASMA | | | LABORATORY | | | | | | SERVICES, | | | | | | CORE | | + +-------+ + + + + + | Specimen | + + | Blood - Blood | + + + + + + + | Performing | Address | City/State/Zipcode | Phone Number | | Organization | | | | + + + + + | [facility] | [address] | [place] [address] | | | SERVICES, CORE | [address] | | | + + + + + RENAL FUNCTION SET (NA,K,CL,CO2,BUN,CREAT,GLUC,CA,PHOS,ALB ) (04/26/2014 7:41 PM PST) + +---------+ + + + | Component | Value | Ref Range | Performed | Pathologist | | | | | At | Signature | + +---------+ + + + | GLUCOSE, | 93 | 60 - 99 mg/dL | [facility] | | | PLASMA | | | LABORATORY | | | (LAB) | | | SERVICES, | | | | | | CORE | | + +---------+ + + + | BUN, PLASMA | 48 (H) | 6 - 20 mg/dL | [facility] | | | (LAB) | | | LABORATORY | | | | | | SERVICES, | | | | | | CORE | | + +---------+ + + + | CREATININE | 0.90 | 0.60 - 1.10 | [facility] | | | PLASMA | | mg/dL | LABORATORY | | | (LAB) | | | SERVICES, | | | | | | CORE | | + +---------+ + + + | EGFR | >60 | >60 mL/min | [facility] | | | - | | | LABORATORY | | | KYRGYZ | | | SERVICES, | | | | | | CORE | | + +---------+ + + + | EGFR NON | >60 | >60 mL/min | [facility] | | | -LUIS | | | LABORATORY | | | RICAN | | | SERVICES, | | | | | | CORE | | + +---------+ + + + | SODIUM, | 152 (H) | 136 - 145 | [facility] | | | PLASMA | | mmol/L | LABORATORY | | | (LAB) | | | SERVICES, | | | | | | CORE | | + +---------+ + + + | POTASSIUM, | 3.7 | 3.4 - 5.0 | [facility] | | | PLASMA | | mmol/L | LABORATORY | | | (LAB) | | | SERVICES, | | | | | | CORE | | + +---------+ + + + | CHLORIDE, | 116 (H) | 97 - 108 mmol/L | [facility] | | | PLASMA | | | LABORATORY | | | (LAB) | | | SERVICES, | | | | | | CORE | | + +---------+ + + + | TOTAL CO2, | 31 | 21 - 32 mmol/L | [facility] | | | PLASMA | | | LABORATORY | | | (LAB) | | | SERVICES, | | | | | | CORE | | + +---------+ + + + | CALCIUM, | 8.4 (L) | 8.6 - 10.2 | [facility] | | | PLASMA | | mg/dL | LABORATORY | | | (LAB) | | | SERVICES, | | | | | | CORE | | + +---------+ + + + | ALBUMIN, | 1.7 (L) | 3.5 - 4.7 g/dL | [facility] | | | PLASMA | | | LABORATORY | | | (LAB) | | | SERVICES, | | | | | | CORE | | + +---------+ + + + | PHOSPHORUS, | 2.5 | 2.4 - 4.7 mg/dL | [facility] | | | PLASMA | | | LABORATORY | | | (LAB) | | | SERVICES, | | | | | | CORE | | + +---------+ + + + | POTASSIUM | No Hemo | | [facility] | | | CMNT | | | LABORATORY | | | | | | SERVICES, | | | | | | CORE | | + +---------+ + + + | ANION GAP | 5 | mmol/L | [facility] | | | | | | LABORATORY | | | | | | SERVICES, | | | | | | CORE | | + +---------+ + + + | ANION | 10 | 4 - 11 mmol/L | [facility] | | | GAP(ALB | | | LABORATORY | | | CORRECTED) | | | SERVICES, | | | | | | CORE | | + +---------+ + + + + + | Specimen | + + | Blood - Blood | + + + + + | Narrative | Performed At | + + + | GFR is estimated using the MDRD equation recommended by the | [facility] | | National Kidney Disease Education Program. Estimated GFR | LABORATORY | | Interpretive Information: <60 mL/min/1.73 sq m | SERVICES, CORE | | Chronic Kidney Disease <15 mL/min/1.73 sq m | | | Kidney Failure Estimated GFR greater that 60 mL/min/1.73 sq m is of | | | limited clinical value. The MDRD equation is not valid in the | | | following situations: - Patients under 18 years of age - Severe | | | malnutrition or obesity - Vegetarian diet - Rapidly changing kidney | | | function | | + + + + + + + + | Performing | Address | City/State/Zipcode | Phone Number | | Organization | | | | + + + + + | [facility] | [address] | [place] [address] | | | SERVICES, CORE | [address] | | | + + + + + EMBOLIZATION NON-NEURO (04/26/2014 5:33 PM PST) + + + + + + | Component | Value | Ref Range | Performed | Pathologist | | | | | At | Signature | + + + + + + | EMBOLIZATIO | PROCEDURE: Thrombin | | | | | N NON-NEURO | injection into left | | | | | | common femoral artery | | | | | | pseudoaneurysm PRIMARY | | | | | | HYDROLOGICAL TECHNICAL OFFICER: Rudy | | | | | | Fortino Vang | | | | | | ANGIOGRAPHY ATTENDING: | | | | | | Nahun Galvez M.D. | | | | | | DIAGNOSIS: Left common | | | | | | femoral artery | | | | | | pseudoaneurysm | | | | | | INDICATION FOR | | | | | | PROCEDURE: This patient | | | | | | underwent arteriography | | | | | | and embolizationfor | | | | | | massive retroperitoneal | | | | | | bleeding from the left | | | | | | femoral approach 2 | | | | | | daysearlier. Ultrasound | | | | | | of the access site | | | | | | demonstrates a small | | | | | | left common | | | | | | femoralartery | | | | | | pseudoaneurysm. Attempts | | | | | | to treat the | | | | | | pseudoaneurysm by | | | | | | compressionfailed. The | | | | | | patient is referred | | | | | | prothrombin injection. | | | | | | DESCRIPTION OF | | | | | | PROCEDURE: Left common | | | | | | femoral artery was | | | | | | examined with | | | | | | duplexultrasound. The | | | | | | pseudoaneurysm was | | | | | | poorly visualized. Most | | | | | | of thepseudoaneurysm was | | | | | | thrombosed, but some | | | | | | flow was still present | | | | | | within it nearits neck. | | | | | | The left groin was | | | | | | prepped and draped in a | | | | | | sterile fashion. | | | | | | Usingduplex ultrasound | | | | | | guidance, a 21-gauge | | | | | | needle was advanced into | | | | | | thepseudoaneurysm and | | | | | | positioned near the | | | | | | neck. 0.1 mL of thrombin | | | | | | (1000 units | | | | | | permilliliter) was | | | | | | injected into the | | | | | | pseudoaneurysm. Color | | | | | | Doppler showed | | | | | | animmediate cessation of | | | | | | flow within the | | | | | | aneurysm. The needle was | | | | | | removed. Therewere no | | | | | | complications. I was | | | | | | present for and | | | | | | personally supervised | | | | | | the entireprocedure. | | | | | | FINDINGS: Color Doppler | | | | | | examination performed | | | | | | prior to from an | | | | | | ejection showedthat most | | | | | | of the pseudoaneurysm | | | | | | rising from the left | | | | | | common femoral artery | | | | | | jorgito thrombosed, but | | | | | | some flow was still | | | | | | present near the neck of | | | | | | thepseudoaneurysm. | | | | | | Following from an | | | | | | injection, there was no | | | | | | flow within | | | | | | thepseudoaneurysm. | | | | | | Normal flow was still | | | | | | observed within the left | | | | | | common femoralartery. | | | | | | IMPRESSION: Successful | | | | | | treatment of left common | | | | | | femoral artery | | | | | | pseudoaneurysmby | | | | | | thrombin injection. | | | | | | Attending Radiologists: | | | | | | NAHUN GALVEZ MDAuthor: | | | | | | NAHUN GALVEZ MD I | | | | | | have personally viewed | | | | | | this procedure/exam, | | | | | | reviewed this report, | | | | | | and madechanges to it | | | | | | where appropriate. | | | | | | Final/Electronically | | | | | | isaaís / NAHUN | | | | | | LENNY 04/27/2014 16:58 | | | | | | PM | | | | + + + + + + + + | Specimen | + + | | + + + +---------+ + + | Performing | Address | City/State/Zipcode | Phone Number | | Organization | | | | + +---------+ + + | [facility] DEPARTMENT OF | | | | | RADIOLOGY | | | | + +---------+ + + CAPILLARY BLOOD GLUCOSE (NO CHG), POC (04/26/2014 1:51 PM PST) + +---------+ + + + | Component | Value | Ref Range | Performed | Pathologist | | | | | At | Signature | + +---------+ + + + | BLOOD | 156 (H) | 60 - 99 mg/dL | [facility] - | | | GLUCOSE, | | | [facility] | | | POC | | | [facility] | | | | | | OF CARE | | | | | | TESTS | | + +---------+ + + + + + | Specimen | + + | | + + + + + + + | Performing | Address | City/State/Zipcode | Phone Number | | Organization | | | | + + + + + | [facility] | [address] | [place], [place] | | | [facility] | [facility] | [phone] | | | TESTS | | | | + + + + + [facility] LAB CHRIS EXT CALEB MONTERROSO (04/26/2014 1:03 PM PST) + + + + + + | Component | Value | Ref Range | Performed | Pathologist | | | | | At | Signature | + + + + + + | VASC LAB | PSEUDOANEURYSM DUPLEX | | | | | LOWER EXT | EXAM: 04/26/2014 | | | | | PSEUDOANEUR | Dictated 04/27/2014 | | | | | COMP LEFT | FINDINGS: Attempt at | | | | | | ultrasound-guided | | | | | | compression of | | | | | | pseudoaneurysm | | | | | | wasunsuccessful. | | | | | | IMPRESSION: Unsuccessful | | | | | | attempt at | | | | | | ultrasound-guided | | | | | | compression of left | | | | | | femoralpseudoaneurysm. | | | | | | END IMPRESSION: | | | | | | Attending Radiologists: | | | | | | ,Author: MIRELA | | | | | | MD JAY I have | | | | | | personally viewed this | | | | | | procedure/exam, reviewed | | | | | | this report, and | | | | | | madechanges to it where | | | | | | appropriate. | | | | | | Final/Electronically | | | | | | signed / MIRELA | | | | | | JAY Preliminary / | | | | | | Kirstie Latif | | | | + + + + + + + + | Specimen | + + | | + + + +---------+ + + | Performing | Address | City/State/Zipcode | Phone Number | | Organization | | | | + +---------+ + + | [facility] DEPARTMENT OF | | | | | RADIOLOGY | | | | + +---------+ + + CULTURE, BLOOD BACTI & YEAST ARTUR (04/26/2014 12:59 PM PST) + + + + + + | Component | Value | Ref Range | Performed | Pathologist | | | | | At | Signature | + + + + + + | SPECIMEN | Blood | | [facility] | | | TYPE | | | LABORATORY | | | | | | SERVICES, | | | | | | CORE | | + + + + + + | SOURCE BODY | Peripheral | | [facility] | | | SITE | | | LABORATORY | | | | | | SERVICES, | | | | | | CORE | | + + + + + + | BLOOD | Final Report:No Bacteria | | [facility] | | | CULTURE | or Yeast isolated at 5 | | LABORATORY | | | [facility] | days.Comment: This is a | | SERVICES, | | | | corrected result. | | CORE | | | | Previous result was No | | | | | | growth to date. on | | | | | | 2015at 0016 PST. | | | | + + + + + + | COMMENT(ELISA | | | [facility] | | | RO) | | | LABORATORY | | | | | | SERVICES, | | | | | | CORE | | + + + + + + + + | Specimen | + + | Blood - Peripheral | + + + + + + + | Performing | Address | City/State/Zipcode | Phone Number | | Organization | | | | + + + + + | [facility] | [address] | [place] [address] | | | SERVICES, CORE | [address] | | | + + + + + VASC LAB PORTABLE VENOUS DUPLEX LOWER EXTREMITY BILATERAL COMPLETE (04/26/2014 10:57 AM PST ) + + + + + + | Component | Value | Ref Range | Performed | Pathologist | | | | | At | Signature | + + + + + + | VASC LAB | LOWER EXTREMITY VENOUS | | | | | PORTABLE | DUPLEX STUDY: | | | | | VENOUS | 04/26/2014 Dictated | | | | | DUPLEX | 04/27/2014 FINDINGS: | | | | | LOWER | Duplex evaluation of | | | | | EXTREMITY | the deep and superficial | | | | | BILATERAL | veins of the | | | | | COMPLETE | lowerextremities reveals | | | | | | no evidence of | | | | | | thrombus. Patient is | | | | | | noted to have a | | | | | | leftfemoral | | | | | | pseudoaneurysm arising | | | | | | from the common femoral | | | | | | artery measuring 2.2 | | | | | | x1.4 x 1.1 cm with to | | | | | | and fro flow in the | | | | | | outflow. The tract | | | | | | length isapproximately | | | | | | 0.8 cm. IMPRESSION: No | | | | | | deep or superficial | | | | | | venous thrombosis noted | | | | | | in either extremity. | | | | | | Thepatient is noted to | | | | | | have left femoral | | | | | | pseudoaneurysm. END | | | | | | IMPRESSION: Attending | | | | | | Radiologists: ,Author: | | | | | | MIRELA THOMPSON MD I | | | | | | have personally viewed | | | | | | this procedure/exam, | | | | | | reviewed this report, | | | | | | and madechanges to it | | | | | | where appropriate. | | | | | | Final/Electronically | | | | | | signed / MIRELA | | | | | | JAY Preliminary / | | | | | | Kirstie Latif | | | | + + + + + + + + | Specimen | + + | | + + + +---------+ + + | Performing | Address | City/State/Zipcode | Phone Number | | Organization | | | | + +---------+ + + | [facility] DEPARTMENT OF | | | | | RADIOLOGY | | | | + +---------+ + + CBC (HEMOGRAM) ONLY (04/26/2014 9:07 AM PST) + + + + + + | Component | Value | Ref Range | Performed | Pathologist | | | | | At | Signature | + + + + + + | WHITE CELL | 27.68 (H) | 4.40 - 11.00 | [facility] | | | COUNT | | K/cu mm | LABORATORY | | | | | | SERVICES, | | | | | | CORE | | + + + + + + | RED CELL | 2.77 (L) | 4.00 - 5.20 | [facility] | | | COUNT | | M/cu mm | LABORATORY | | | | | | SERVICES, | | | | | | CORE | | + + + + + + | HEMOGLOBIN | 8.1 (L) | 12.0 - 16.0 | [facility] | | | | | g/dL | LABORATORY | | | | | | SERVICES, | | | | | | CORE | | + + + + + + | HEMATOCRIT | 26.1 (L) | 36.0 - 46.0 % | [facility] | | | | | | LABORATORY | | | | | | SERVICES, | | | | | | CORE | | + + + + + + | MCV | 94.2 | 80.0 - 96.0 fL | [facility] | | | | | | LABORATORY | | | | | | SERVICES, | | | | | | CORE | | + + + + + + | MCHC | 31.0 | 33.0 - 35.5 | [facility] | | | | | g/dL | LABORATORY | | | | | | SERVICES, | | | | | | CORE | | + + + + + + | RDW SD | 55.4 (H) | 35.1 - 46.3 fL | [facility] | | | | | | LABORATORY | | | | | | SERVICES, | | | | | | CORE | | + + + + + + | PLATELET | 66 (L) | 150 - 400 K/cu | [facility] | | | COUNT | | mm | LABORATORY | | | | | | SERVICES, | | | | | | CORE | | + + + + + + | MPV | 12.1 | 9.7 - 12.3 fL | [facility] | | | | | | LABORATORY | | | | | | SERVICES, | | | | | | CORE | | + + + + + + | NRBC% | 5.8 (H) | 0.0 - 0.3 % | [facility] | | | | | | LABORATORY | | | | | | SERVICES, | | | | | | CORE | | + + + + + + | NRBC# | 1.61 (H) | 0.00 - 0.02 | [facility] | | | | | K/cu mm | LABORATORY | | | | | | SERVICES, | | | | | | CORE | | + + + + + + + + | Specimen | + + | Blood - Blood | + + + + + + + | Performing | Address | City/State/Zipcode | Phone Number | | Organization | | | | + + + + + | [facility] | [address] | [place] [address] | | | SERVICES, CORE | [address] | | | + + + + + HEPARIN, EITHER STANDARD / LMW, BLOOD (04/26/2014 9:07 AM PST) + +-------+ + + + | Component | Value | Ref Range | Performed | Pathologist | | | | | At | Signature | + +-------+ + + + | HEPARIN, | <0.10 | U/mL | [facility] | | | STD LMW | | | LABORATORY | | | | | | SERVICES, | | | | | | CORE | | + +-------+ + + + + + | Specimen | + + | Blood - Blood | + + + + + | Narrative | Performed At | + + + | Heparin, Either STD/LMW - Therapeutic Ranges: Heparin, | [facility] | | Unfractionated: 0.35 - 0.70 U/mL Enoxaparin, LMWH: 0.70 | LABORATORY | | - 1.20 U/mL Dalteparin, LMWH: 0.70 - 1.20 U/mL | SERVICES, CORE | | Tinzaparin, LMWH: Therapeutic range not established. | | | Preliminary studies suggest range | | | similar to dalteparin. Clinical | | | correlation required. | | | Heparin levels may be unreliable for: | | | Total bilirubin >28.8 mg/dL | | | Triglycerides >690 mg/dL | | | or Moderate to Gross Hemolysis | | + + + + + + + + | Performing | Address | City/State/Zipcode | Phone Number | | Organization | | | | + + + + + | [facility] | [address] | [place] [address] | | | SERVICES, CORE | [address] | | | + + + + + INR (04/26/2014 9:07 AM PST) + +-------+ + + + | Component | Value | Ref Range | Performed | Pathologist | | | | | At | Signature | + +-------+ + + + | INR | 1.00 | 0.90 - 1.20 INR | [facility] | | | | | | LABORATORY | | | | | | SERVICES, | | | | | | CORE | | + +-------+ + + + + + | Specimen | + + | Blood - Blood | + + + + + | Narrative | Performed At | + + + | INR Therapeutic ranges for full anticoagulation: INR for | [facility] | | Venous Thromboembolism (2.0 - 3.0) INR INR for | LABORATORY | | most patients with mech. valves (2.5 - 3.5) INR | SERVICES, CORE | + + + + + + + + | Performing | Address | City/State/Zipcode | Phone Number | | Organization | | | | + + + + + | [facility] | [address] | [place] [address] | | | SERVICES, CORE | [address] | | | + + + + + CHEYENNE ADD ON (04/25/2014 11:59 PM PST) + + + + + + | Component | Value | Ref Range | Performed | Pathologist | | | | | At | Signature | + + + + + + | NEUTROPHIL | 87.8 (H) | 50.0 - 70.0 % | [facility] | | | % | | | LABORATORY | | | | | | SERVICES, | | | | | | CORE | | + + + + + + | LYMPHOCYTE | 3.0 (L) | 18.0 - 42.0 % | [facility] | | | % | | | LABORATORY | | | | | | SERVICES, | | | | | | CORE | | + + + + + + | MONOCYTE % | 5.6 | 3.5 - 9.0 % | [facility] | | | | | | LABORATORY | | | | | | SERVICES, | | | | | | CORE | | + + + + + + | EOS % | 0.2 (L) | 1.0 - 3.0 % | [facility] | | | | | | LABORATORY | | | | | | SERVICES, | | | | | | CORE | | + + + + + + | BASO % | 0.3 | 0.0 - 2.0 % | [facility] | | | | | | LABORATORY | | | | | | SERVICES, | | | | | | CORE | | + + + + + + | IG% | 3.1 (H)Comment: Immature | 0.0 - 0.6 % | [facility] | | | | Granulocytes (IG) | | LABORATORY | | | | include metamyelocytes, | | SERVICES, | | | | myelocytes and | | CORE | | | | promyelocytes. Bands | | | | | | are not included in the | | | | | | IG count. Bands are | | | | | | included in the | | | | | | neutrophil count. | | | | + + + + + + | NEUTROPHIL | 24.54 (H) | 1.80 - 7.70 | [facility] | | | # | | K/cu mm | LABORATORY | | | | | | SERVICES, | | | | | | CORE | | + + + + + + | LYMPHOCYTE | 0.85 (L) | 1.00 - 4.80 | [facility] | | | # | | K/cu mm | LABORATORY | | | | | | SERVICES, | | | | | | CORE | | + + + + + + | MONOCYTE # | 1.58 (H) | 0.10 - 0.90 | [facility] | | | | | K/cu mm | LABORATORY | | | | | | SERVICES, | | | | | | CORE | | + + + + + + | EOS # | 0.07 | 0.00 - 0.50 | [facility] | | | | | K/cu mm | LABORATORY | | | | | | SERVICES, | | | | | | CORE | | + + + + + + | BASO # | 0.09 | 0.00 - 0.10 | [facility] | | | | | K/cu mm | LABORATORY | | | | | | SERVICES, | | | | | | CORE | | + + + + + + | IG# | 0.88 (H) | 0.00 - 0.03 | [facility] | | | | | K/cu mm | LABORATORY | | | | | | SERVICES, | | | | | | CORE | | + + + + + + + + | Specimen | + + | Blood - Blood | + + + + + | Narrative | Performed At | + + + | Immature Granulocytes (IG) include metamyelocytes, myelocytes | [facility] | | and promyelocytes. Bands are not included in the IG count. Bands are | LABORATORY | | included in the neutrophil count. | SERVICES, CORE | + + + + + + + + | Performing | Address | City/State/Zipcode | Phone Number | | Organization | | | | + + + + + | [facility] | [address] | [place] [address] | | | SERVICES, CORE | [address] | | | + + + + + CBC (HEMOGRAM) ONLY (04/25/2014 11:59 PM PST) + + + + + + | Component | Value | Ref Range | Performed | Pathologist | | | | | At | Signature | + + + + + + | WHITE CELL | 27.13 (H) | 4.40 - 11.00 | [facility] | | | COUNT | | K/cu mm | LABORATORY | | | | | | SERVICES, | | | | | | CORE | | + + + + + + | RED CELL | 2.64 (L) | 4.00 - 5.20 | [facility] | | | COUNT | | M/cu mm | LABORATORY | | | | | | SERVICES, | | | | | | CORE | | + + + + + + | HEMOGLOBIN | 7.8 (L) | 12.0 - 16.0 | [facility] | | | | | g/dL | LABORATORY | | | | | | SERVICES, | | | | | | CORE | | + + + + + + | HEMATOCRIT | 24.4 (L) | 36.0 - 46.0 % | [facility] | | | | | | LABORATORY | | | | | | SERVICES, | | | | | | CORE | | + + + + + + | MCV | 92.4 | 80.0 - 96.0 fL | [facility] | | | | | | LABORATORY | | | | | | SERVICES, | | | | | | CORE | | + + + + + + | MCHC | 32.0 | 33.0 - 35.5 | [facility] | | | | | g/dL | LABORATORY | | | | | | SERVICES, | | | | | | CORE | | + + + + + + | RDW SD | 55.0 (H) | 35.1 - 46.3 fL | [facility] | | | | | | LABORATORY | | | | | | SERVICES, | | | | | | CORE | | + + + + + + | PLATELET | 70 (L) | 150 - 400 K/cu | [facility] | | | COUNT | | mm | LABORATORY | | | | | | SERVICES, | | | | | | CORE | | + + + + + + | MPV | 12.2 | 9.7 - 12.3 fL | [facility] | | | | | | LABORATORY | | | | | | SERVICES, | | | | | | CORE | | + + + + + + | NRBC% | 5.1 (H) | 0.0 - 0.3 % | [facility] | | | | | | LABORATORY | | | | | | SERVICES, | | | | | | CORE | | + + + + + + | NRBC# | 1.38 (H) | 0.00 - 0.02 | [facility] | | | | | K/cu mm | LABORATORY | | | | | | SERVICES, | | | | | | CORE | | + + + + + + + + | Specimen | + + | Blood - Blood | + + + + + + + | Performing | Address | City/State/Zipcode | Phone Number | | Organization | | | | + + + + + | [facility] | [address] | [place] [address] | | | SERVICES, CORE | [address] | | | + + + + + RENAL FUNCTION SET (NA,K,CL,CO2,BUN,CREAT,GLUC,CA,PHOS,ALB ) (04/25/2014 11:59 PM PST) + + + + + + | Component | Value | Ref Range | Performed | Pathologist | | | | | At | Signature | + + + + + + | GLUCOSE, | 123 (H) | 60 - 99 mg/dL | [facility] | | | PLASMA | | | LABORATORY | | | (LAB) | | | SERVICES, | | | | | | CORE | | + + + + + + | BUN, PLASMA | 51 (H) | 6 - 20 mg/dL | [facility] | | | (LAB) | | | LABORATORY | | | | | | SERVICES, | | | | | | CORE | | + + + + + + | CREATININE | 1.11 (H) | 0.60 - 1.10 | [facility] | | | PLASMA | | mg/dL | LABORATORY | | | (LAB) | | | SERVICES, | | | | | | CORE | | + + + + + + | EGFR | >60 | >60 mL/min | [facility] | | | - | | | LABORATORY | | | [facility] | | | SERVICES, | | | | | | CORE | | + + + + + + | EGFR NON | 50 (L) | >60 mL/min | [facility] | | | -LUIS | | | LABORATORY | | | RICAN | | | SERVICES, | | | | | | CORE | | + + + + + + | SODIUM, | 151 (H) | 136 - 145 | [facility] | | | PLASMA | | mmol/L | LABORATORY | | | (LAB) | | | SERVICES, | | | | | | CORE | | + + + + + + | POTASSIUM, | 4.0 | 3.4 - 5.0 | [facility] | | | PLASMA | | mmol/L | LABORATORY | | | (LAB) | | | SERVICES, | | | | | | CORE | | + + + + + + | CHLORIDE, | 116 (H) | 97 - 108 mmol/L | [facility] | | | PLASMA | | | LABORATORY | | | (LAB) | | | SERVICES, | | | | | | CORE | | + + + + + + | TOTAL CO2, | 32 | 21 - 32 mmol/L | [facility] | | | PLASMA | | | LABORATORY | | | (LAB) | | | SERVICES, | | | | | | CORE | | + + + + + + | CALCIUM, | 8.9 | 8.6 - 10.2 | [facility] | | | PLASMA | | mg/dL | LABORATORY | | | (LAB) | | | SERVICES, | | | | | | CORE | | + + + + + + | ALBUMIN, | 2.0 (L) | 3.5 - 4.7 g/dL | [facility] | | | PLASMA | | | LABORATORY | | | (LAB) | | | SERVICES, | | | | | | CORE | | + + + + + + | PHOSPHORUS, | 2.9 | 2.4 - 4.7 mg/dL | [facility] | | | PLASMA | | | LABORATORY | | | (LAB) | | | SERVICES, | | | | | | CORE | | + + + + + + | POTASSIUM | No Hemo | | [facility] | | | CMNT | | | LABORATORY | | | | | | SERVICES, | | | | | | CORE | | + + + + + + | ANION GAP | 3 | mmol/L | [facility] | | | | | | LABORATORY | | | | | | SERVICES, | | | | | | CORE | | + + + + + + | ANION | 8 | 4 - 11 mmol/L | [facility] | | | GAP(ALB | | | LABORATORY | | | CORRECTED) | | | SERVICES, | | | | | | CORE | | + + + + + + + + | Specimen | + + | Blood - Blood | + + + + + | Narrative | Performed At | + + + | GFR is estimated using the MDRD equation recommended by the | [facility] | | National Kidney Disease Education Program. Estimated GFR | LABORATORY | | Interpretive Information: <60 mL/min/1.73 sq m | [facility], CORE | | Chronic Kidney Disease <15 mL/min/1.73 sq m | | | Kidney Failure Estimated GFR greater that 60 mL/min/1.73 sq m is of | | | limited clinical value. The MDRD equation is not valid in the | | | following situations: - Patients under 18 years of age - Severe | | | malnutrition or obesity - Vegetarian diet - Rapidly changing kidney | | | function | | + + + + + + + + | Performing | Address | City/State/Zipcode | Phone Number | | Organization | | | | + + + + + | [facility] | [address] | [place] [address] | | | JANELL SHARP | [address] | | | + + + + + MAGNESIUM, PLASMA (04/25/2014 11:59 PM PST) + +-------+ + + + | Component | Value | Ref Range | Performed | Pathologist | | | | | At | Signature | + +-------+ + + + | MAGNESIUM,P | 2.4 | 1.8 - 2.5 mg/dL | [facility] | | | LASMA | | | LABORATORY | | | | | | SERVICES, | | | | | | CORE | | + +-------+ + + + + + | Specimen | + + | Blood - Blood | + + + + + + + | Performing | Address | City/State/Zipcode | Phone Number | | Organization | | | | + + + + + | [facility] | [address] | [place] [address] | | | SERVICES, CORE | [address] | | | + + + + + INR (04/25/2014 11:59 PM PST) + +-------+ + + + | Component | Value | Ref Range | Performed | Pathologist | | | | | At | Signature | + +-------+ + + + | INR | 1.08 | 0.90 - 1.20 INR | [facility] | | | | | | LABORATORY | | | | | | SERVICES, | | | | | | CORE | | + +-------+ + + + + + | Specimen | + + | Blood - Blood | + + + + + | Narrative | Performed At | + + + | INR Therapeutic ranges for full anticoagulation: INR for | [facility] | | Venous Thromboembolism (2.0 - 3.0) INR INR for | LABORATORY | | most patients with mech. valves (2.5 - 3.5) INR | SERVICES, CORE | + + + + + + + + | Performing | Address | City/State/Zipcode | Phone Number | | Organization | | | | + + + + + | [facility] | [address] | [place] [address] | | | JANELL SHARP | [address] | | | + + + + + CAPILLARY BLOOD GLUCOSE (NO CHG), POC (04/25/2014 6:40 PM PST) + +---------+ + + + | Component | Value | Ref Range | Performed | Pathologist | | | | | At | Signature | + +---------+ + + + | BLOOD | 142 (H) | 60 - 99 mg/dL | [facility] | | | GLUCOSE, | | | [facility] | | | POC | | | [facility] | | | | | | OF CARE | | | | | | TESTS | | + +---------+ + + + + + | Specimen | + + | | + + + + + + + | Performing | Address | City/State/Zipcode | Phone Number | | Organization | | | | + + + + + | [facility] | [address] | [place], [place] | | | [facility] | [address] | [address] | | | TESTS | | | | + + + + + RENAL FUNCTION SET (NA,K,CL,CO2,BUN,CREAT,GLUC,CA,PHOS,ALB ) (04/25/2014 6:36 PM PST) + + + + + + | Component | Value | Ref Range | Performed | Pathologist | | | | | At | Signature | + + + + + + | GLUCOSE, | 129 (H) | 60 - 99 mg/dL | [facility] | | | PLASMA | | | LABORATORY | | | (LAB) | | | SERVICES, | | | | | | CORE | | + + + + + + | BUN, PLASMA | 43 (H) | 6 - 20 mg/dL | [facility] | | | (LAB) | | | LABORATORY | | | | | | SERVICES, | | | | | | CORE | | + + + + + + | CREATININE | 1.11 (H) | 0.60 - 1.10 | [facility] | | | PLASMA | | mg/dL | LABORATORY | | | (LAB) | | | SERVICES, | | | | | | CORE | | + + + + + + | EGFR | >60 | >60 mL/min | [facility] | | | - | | | LABORATORY | | | KYRGYZ | | | SERVICES, | | | | | | CORE | | + + + + + + | EGFR NON | 50 (L) | >60 mL/min | [facility] | | | -LUIS | | | LABORATORY | | | RICAN | | | SERVICES, | | | | | | CORE | | + + + + + + | SODIUM, | 151 (H) | 136 - 145 | [facility] | | | PLASMA | | mmol/L | LABORATORY | | | (LAB) | | | SERVICES, | | | | | | CORE | | + + + + + + | POTASSIUM, | 4.3 | 3.4 - 5.0 | [facility] | | | PLASMA | | mmol/L | LABORATORY | | | (LAB) | | | SERVICES, | | | | | | CORE | | + + + + + + | CHLORIDE, | 116 (H) | 97 - 108 mmol/L | [facility] | | | PLASMA | | | LABORATORY | | | (LAB) | | | SERVICES, | | | | | | CORE | | + + + + + + | TOTAL CO2, | 32 | 21 - 32 mmol/L | [facility] | | | PLASMA | | | LABORATORY | | | (LAB) | | | SERVICES, | | | | | | CORE | | + + + + + + | CALCIUM, | 8.7 | 8.6 - 10.2 | [facility] | | | PLASMA | | mg/dL | LABORATORY | | | (LAB) | | | SERVICES, | | | | | | CORE | | + + + + + + | ALBUMIN, | 2.0 (L) | 3.5 - 4.7 g/dL | [facility] | | | PLASMA | | | LABORATORY | | | (LAB) | | | SERVICES, | | | | | | CORE | | + + + + + + | PHOSPHORUS, | 3.2 | 2.4 - 4.7 mg/dL | [facility] | | | PLASMA | | | LABORATORY | | | (LAB) | | | SERVICES, | | | | | | CORE | | + + + + + + | POTASSIUM | No Hemo | | [facility] | | | CMNT | | | LABORATORY | | | | | | SERVICES, | | | | | | CORE | | + + + + + + | ANION GAP | 3 | mmol/L | [facility] | | | | | | LABORATORY | | | | | | SERVICES, | | | | | | CORE | | + + + + + + | ANION | 8 | 4 - 11 mmol/L | [facility] | | | GAP(ALB | | | LABORATORY | | | CORRECTED) | | | SERVICES, | | | | | | CORE | | + + + + + + + + | Specimen | + + | Blood - Blood | + + + + + | Narrative | Performed At | + + + | GFR is estimated using the MDRD equation recommended by the | [facility] | | National Kidney Disease Education Program. Estimated GFR | LABORATORY | | Interpretive Information: <60 mL/min/1.73 sq m | ARON, JANELL | | Chronic Kidney Disease <15 mL/min/1.73 sq m | | | Kidney Failure Estimated GFR greater that 60 mL/min/1.73 sq m is of | | | limited clinical value. The MDRD equation is not valid in the | | | following situations: - Patients under 18 years of age - Severe | | | malnutrition or obesity - Vegetarian diet - Rapidly changing kidney | | | function | | + + + + + + + + | Performing | Address | City/State/Zipcode | Phone Number | | Organization | | | | + + + + + | [facility] | [address] | [place] [address] | | | JANELL SHARP | [address] | | | + + + + + CAPILLARY BLOOD GLUCOSE (NO CHG), POC (04/25/2014 1:13 PM PST) + +---------+ + + + | Component | Value | Ref Range | Performed | Pathologist | | | | | At | Signature | + +---------+ + + + | BLOOD | 157 (H) | 60 - 99 mg/dL | [facility] - | | | GLUCOSE, | | | [facility] | | | POC | | | [facility] | | | | | | OF CARE | | | | | | TESTS | | + +---------+ + + + + + | Specimen | + + | | + + + + + + + | Performing | Address | City/State/Zipcode | Phone Number | | Organization | | | | + + + + + | [facility] | [address] | [place], [place] | | | [place] | [address] | [address] | | | TESTS | | | | + + + + + LIVER SET (AST,ALT,BILI TOTAL,BILI DIRECT,ALK PHOS,ALB,PROT TOTAL) (04/25/2014 1:07 PM PST ) + +---------+ + + + | Component | Value | Ref Range | Performed | Pathologist | | | | | At | Signature | + +---------+ + + + | ALBUMIN, | 2.2 (L) | 3.5 - 4.7 g/dL | [facility] | | | PLASMA | | | LABORATORY | | | (LAB) | | | SERVICES, | | | | | | CORE | | + +---------+ + + + | BILIRUBIN | 1.5 (H) | 0.3 - 1.2 mg/dL | [facility] | | | TOTAL | | | LABORATORY | | | | | | SERVICES, | | | | | | CORE | | + +---------+ + + + | BILIRUBIN | 0.7 (H) | 0.0 - 0.3 mg/dL | [facility] | | | DIRECT | | | LABORATORY | | | | | | SERVICES, | | | | | | CORE | | + +---------+ + + + | ALK PHOS | 168 (H) | 42 - 98 U/L | [facility] | | | | | | LABORATORY | | | | | | SERVICES, | | | | | | CORE | | + +---------+ + + + | AST(SGOT) | 399 (H) | 15 - 41 U/L | [facility] | | | | | | LABORATORY | | | | | | SERVICES, | | | | | | CORE | | + +---------+ + + + | ALT (SGPT) | 433 (H) | 12 - 60 U/L | [facility] | | | | | | LABORATORY | | | | | | SERVICES, | | | | | | CORE | | + +---------+ + + + | TOTAL | 5.4 (L) | 6.4 - 8.2 g/dL | [facility] | | | PROTEIN, | | | LABORATORY | | | PLASMA | | | SERVICES, | | | (LAB) | | | CORE | | + +---------+ + + + | AST CMNT | No Hemo | | [facility] | | | | | | LABORATORY | | | | | | SERVICES, | | | | | | CORE | | + +---------+ + + + | BILI T CMNT | No Hemo | | [facility] | | | | | | LABORATORY | | | | | | SERVICES, | | | | | | CORE | | + +---------+ + + + | BILI D CMNT | No Hemo | | [facility] | | | | | | LABORATORY | | | | | | SERVICES, | | | | | | CORE | | + +---------+ + + + + + | Specimen | + + | Blood - Blood | + + + + + + + | Performing | Address | City/State/Zipcode | Phone Number | | Organization | | | | + + + + + | [facility] | [address] | [place] [address] | | | SERVICES, CORE | [address] | | | + + + + + INR (04/25/2014 1:07 PM PST) + +-------+ + + + | Component | Value | Ref Range | Performed | Pathologist | | | | | At | Signature | + +-------+ + + + | INR | 1.06 | 0.90 - 1.20 INR | [facility] | | | | | | LABORATORY | | | | | | SERVICES, | | | | | | CORE | | + +-------+ + + + + + | Specimen | + + | Blood - Blood | + + + + + | Narrative | Performed At | + + + | INR Therapeutic ranges for full anticoagulation: INR for | [facility] | | Venous Thromboembolism (2.0 - 3.0) INR INR for | LABORATORY | | most patients with mech. valves (2.5 - 3.5) INR | SERVICES, CORE | + + + + + + + + | Performing | Address | City/State/Zipcode | Phone Number | | Organization | | | | + + + + + | [facility] | [address] | [place] [address] | | | SERVICES, CORE | [address] | | | + + + + + PRODUCT - FRESH FROZEN PLASMA (04/25/2014 7:48 AM PST) + + + + + + | Component | Value | Ref Range | Performed | Pathologist | | | | | At | Signature | + + + + + + | PRODUCT | PLASMA THAWED | | [facility] | | | DESCRIPTION | | | DEPARTMENT | | | | | | OF | | | | | | PATHOLOGY | | + + + + + + | PRODUCT | [id number] | | [facility] | | | UNIT # | | | DEPARTMENT | | | | | | OF | | | | | | PATHOLOGY | | + + + + + + | UNIT ABO | A | | [facility] | | | | | | DEPARTMENT | | | | | | OF | | | | | | PATHOLOGY | | + + + + + + | UNIT RH | POS | | [facility] | | | | | | DEPARTMENT | | | | | | OF | | | | | | PATHOLOGY | | + + + + + + | STATUS OF | Presumed Transfused | | [facility] | | | UNIT | | | DEPARTMENT | | | | | | OF | | | | | | PATHOLOGY | | + + + + + + | BLOOD | [id number] | | [facility] | | | PRODUCT | | | DEPARTMENT | | | CODE | | | OF | | | | | | PATHOLOGY | | + + + + + + + + | Specimen | + + | | + + + + + + + | Performing | Address | City/State/Zipcode | Phone Number | | Organization | | | | + + + + + | [facility] | [address] | [place] [address] | | | PATHOLOGY | [address] | | | + + + + + PRODUCT - FRESH FROZEN PLASMA (04/25/2014 7:48 AM PST) + + + + + + | Component | Value | Ref Range | Performed | Pathologist | | | | | At | Signature | + + + + + + | PRODUCT | PLASMA THAWED | | [facility] | | | DESCRIPTION | | | DEPARTMENT | | | | | | OF | | | | | | PATHOLOGY | | + + + + + + | PRODUCT | [id number] | | [facility] | | | UNIT # | | | DEPARTMENT | | | | | | OF | | | | | | PATHOLOGY | | + + + + + + | UNIT ABO | A | | [facility] | | | | | | DEPARTMENT | | | | | | OF | | | | | | PATHOLOGY | | + + + + + + | UNIT RH | POS | | [facility] | | | | | | DEPARTMENT | | | | | | OF | | | | | | PATHOLOGY | | + + + + + + | STATUS OF | Presumed Transfused | | [facility] | | | UNIT | | | DEPARTMENT | | | | | | OF | | | | | | PATHOLOGY | | + + + + + + | BLOOD | [id number] | | [facility] | | | PRODUCT | | | DEPARTMENT | | | CODE | | | OF | | | | | | PATHOLOGY | | + + + + + + + + | Specimen | + + | | + + + + + + + | Performing | Address | City/State/Zipcode | Phone Number | | Organization | | | | + + + + + | [facility] | [address] | [place] [address] | | | PATHOLOGY | [address] | | | + + + + + HEMATOCRIT (04/25/2014 6:04 AM PST) + + + + + + | Component | Value | Ref Range | Performed | Pathologist | | | | | At | Signature | + + + + + + | HEMATOCRIT | 24.4 (L) | 36.0 - 46.0 % | [facility] | | | | | | LABORATORY | | | | | | SERVICES, | | | | | | CORE | | + + + + + + + + | Specimen | + + | Blood - Blood | + + + + + + + | Performing | Address | City/State/Zipcode | Phone Number | | Organization | | | | + + + + + | [facility] | [address] | [place] [address] | | | SERVICES, JANELL | [address] | | | + + + + + CBC (HEMOGRAM) ONLY (04/25/2014 12:04 AM PST) + + + + + + | Component | Value | Ref Range | Performed | Pathologist | | | | | At | Signature | + + + + + + | WHITE CELL | 25.48 (H) | 4.40 - 11.00 | [facility] | | | COUNT | | K/cu mm | LABORATORY | | | | | | SERVICES, | | | | | | CORE | | + + + + + + | RED CELL | 2.72 (L) | 4.00 - 5.20 | [facility] | | | COUNT | | M/cu mm | LABORATORY | | | | | | SERVICES, | | | | | | CORE | | + + + + + + | HEMOGLOBIN | 7.9 (L) | 12.0 - 16.0 | [facility] | | | | | g/dL | LABORATORY | | | | | | SERVICES, | | | | | | CORE | | + + + + + + | HEMATOCRIT | 24.1 (L) | 36.0 - 46.0 % | [facility] | | | | | | LABORATORY | | | | | | SERVICES, | | | | | | CORE | | + + + + + + | MCV | 88.6 | 80.0 - 96.0 fL | [facility] | | | | | | LABORATORY | | | | | | SERVICES, | | | | | | CORE | | + + + + + + | MCHC | 32.8 | 33.0 - 35.5 | [facility] | | | | | g/dL | LABORATORY | | | | | | SERVICES, | | | | | | CORE | | + + + + + + | RDW SD | 51.4 (H) | 35.1 - 46.3 fL | [facility] | | | | | | LABORATORY | | | | | | SERVICES, | | | | | | CORE | | + + + + + + | PLATELET | 72 (L) | 150 - 400 K/cu | [facility] | | | COUNT | | mm | LABORATORY | | | | | | SERVICES, | | | | | | CORE | | + + + + + + | MPV | 11.5 | 9.7 - 12.3 fL | [facility] | | | | | | LABORATORY | | | | | | SERVICES, | | | | | | CORE | | + + + + + + | NRBC% | 1.9 (H) | 0.0 - 0.3 % | [facility] | | | | | | LABORATORY | | | | | | SERVICES, | | | | | | CORE | | + + + + + + | NRBC# | 0.49 (H) | 0.00 - 0.02 | [facility] | | | | | K/cu mm | LABORATORY | | | | | | SERVICES, | | | | | | CORE | | + + + + + + + + | Specimen | + + | Blood - Blood | + + + + + + + | Performing | Address | City/State/Zipcode | Phone Number | | Organization | | | | + + + + + | [facility] | [address] | [place] [address] | | | SERVICES, CORE | [address] | | | + + + + + RENAL FUNCTION SET (NA,K,CL,CO2,BUN,CREAT,GLUC,CA,PHOS,ALB ) (04/25/2014 12:04 AM PST) + + + + + + | Component | Value | Ref Range | Performed | Pathologist | | | | | At | Signature | + + + + + + | GLUCOSE, | 126 (H) | 60 - 99 mg/dL | [facility] | | | PLASMA | | | LABORATORY | | | (LAB) | | | SERVICES, | | | | | | CORE | | + + + + + + | BUN, PLASMA | 41 (H) | 6 - 20 mg/dL | [facility] | | | (LAB) | | | LABORATORY | | | | | | SERVICES, | | | | | | CORE | | + + + + + + | CREATININE | 1.17 (H) | 0.60 - 1.10 | [facility] | | | PLASMA | | mg/dL | LABORATORY | | | (LAB) | | | SERVICES, | | | | | | CORE | | + + + + + + | EGFR | 57 (L) | >60 mL/min | [facility] | | | - | | | LABORATORY | | | KYRGYZ | | | SERVICES, | | | | | | CORE | | + + + + + + | EGFR NON | 48 (L) | >60 mL/min | [facility] | | | -LUIS | | | LABORATORY | | | RICAN | | | SERVICES, | | | | | | CORE | | + + + + + + | SODIUM, | 153 (H) | 136 - 145 | [facility] | | | PLASMA | | mmol/L | LABORATORY | | | (LAB) | | | SERVICES, | | | | | | CORE | | + + + + + + | POTASSIUM, | 3.6 | 3.4 - 5.0 | [facility] | | | PLASMA | | mmol/L | LABORATORY | | | (LAB) | | | SERVICES, | | | | | | CORE | | + + + + + + | CHLORIDE, | 116 (H) | 97 - 108 mmol/L | [facility] | | | PLASMA | | | LABORATORY | | | (LAB) | | | SERVICES, | | | | | | CORE | | + + + + + + | TOTAL CO2, | 32 | 21 - 32 mmol/L | [facility] | | | PLASMA | | | LABORATORY | | | (LAB) | | | SERVICES, | | | | | | CORE | | + + + + + + | CALCIUM, | 8.4 (L) | 8.6 - 10.2 | [facility] | | | PLASMA | | mg/dL | LABORATORY | | | (LAB) | | | SERVICES, | | | | | | CORE | | + + + + + + | ALBUMIN, | 1.8 (L) | 3.5 - 4.7 g/dL | [facility] | | | PLASMA | | | LABORATORY | | | (LAB) | | | SERVICES, | | | | | | CORE | | + + + + + + | PHOSPHORUS, | 4.5 | 2.4 - 4.7 mg/dL | [facility] | | | PLASMA | | | LABORATORY | | | (LAB) | | | SERVICES, | | | | | | CORE | | + + + + + + | POTASSIUM | No Hemo | | [facility] | | | CMNT | | | LABORATORY | | | | | | SERVICES, | | | | | | CORE | | + + + + + + | ANION GAP | 5 | mmol/L | [facility] | | | | | | LABORATORY | | | | | | SERVICES, | | | | | | CORE | | + + + + + + | ANION | 10 | 4 - 11 mmol/L | [facility] | | | GAP(ALB | | | LABORATORY | | | CORRECTED) | | | SERVICES, | | | | | | CORE | | + + + + + + + + | Specimen | + + | Blood - Blood | + + + + + | Narrative | Performed At | + + + | GFR is estimated using the MDRD equation recommended by the | [facility] | | National Kidney Disease Education Program. Estimated GFR | LABORATORY | | Interpretive Information: <60 mL/min/1.73 sq m | [facility], CORE | | Chronic Kidney Disease <15 mL/min/1.73 sq m | | | Kidney Failure Estimated GFR greater that 60 mL/min/1.73 sq m is of | | | limited clinical value. The MDRD equation is not valid in the | | | following situations: - Patients under 18 years of age - Severe | | | malnutrition or obesity - Vegetarian diet - Rapidly changing kidney | | | function | | + + + + + + + + | Performing | Address | City/State/Zipcode | Phone Number | | Organization | | | | + + + + + | [facility] | [address] | [place] [address] | | | JANELL SHARP | [address] | | | + + + + + MAGNESIUM, PLASMA (04/25/2014 12:04 AM PST) + +-------+ + + + | Component | Value | Ref Range | Performed | Pathologist | | | | | At | Signature | + +-------+ + + + | MAGNESIUM,P | 1.9 | 1.8 - 2.5 mg/dL | [facility] | | | LASMA | | | LABORATORY | | | | | | SERVICES, | | | | | | CORE | | + +-------+ + + + + + | Specimen | + + | Blood - Blood | + + + + + + + | Performing | Address | City/State/Zipcode | Phone Number | | Organization | | | | + + + + + | [facility] | [address] | [place] [address] | | | SERVICES, CORE | [address] | | | + + + + + INR (04/25/2014 12:04 AM PST) + + + + + + | Component | Value | Ref Range | Performed | Pathologist | | | | | At | Signature | + + + + + + | INR | 2.05 (H) | 0.90 - 1.20 INR | [facility] | | | | | | LABORATORY | | | | | | SERVICES, | | | | | | CORE | | + + + + + + + + | Specimen | + + | Blood - Blood | + + + + + | Narrative | Performed At | + + + | INR Therapeutic ranges for full anticoagulation: INR for | [facility] | | Venous Thromboembolism (2.0 - 3.0) INR INR for | LABORATORY | | most patients with mech. valves (2.5 - 3.5) INR | SERVICES, CORE | + + + + + + + + | Performing | Address | City/State/Zipcode | Phone Number | | Organization | | | | + + + + + | [facility] | [address] | [place] [address] | | | SERVICES, CORE | [address] | | | + + + + + CBC (HEMOGRAM) ONLY (04/24/2014 6:30 PM PST) + + + + + + | Component | Value | Ref Range | Performed | Pathologist | | | | | At | Signature | + + + + + + | WHITE CELL | 26.33 (H) | 4.40 - 11.00 | [facility] | | | COUNT | | K/cu mm | LABORATORY | | | | | | SERVICES, | | | | | | CORE | | + + + + + + | RED CELL | 2.88 (L) | 4.00 - 5.20 | [facility] | | | COUNT | | M/cu mm | LABORATORY | | | | | | SERVICES, | | | | | | CORE | | + + + + + + | HEMOGLOBIN | 8.5 (L) | 12.0 - 16.0 | [facility] | | | | | g/dL | LABORATORY | | | | | | SERVICES, | | | | | | CORE | | + + + + + + | HEMATOCRIT | 25.5 (L) | 36.0 - 46.0 % | [facility] | | | | | | LABORATORY | | | | | | SERVICES, | | | | | | CORE | | + + + + + + | MCV | 88.5 | 80.0 - 96.0 fL | [facility] | | | | | | LABORATORY | | | | | | SERVICES, | | | | | | CORE | | + + + + + + | MCHC | 33.3 | 33.0 - 35.5 | [facility] | | | | | g/dL | LABORATORY | | | | | | SERVICES, | | | | | | CORE | | + + + + + + | RDW SD | 50.5 (H) | 35.1 - 46.3 fL | [facility] | | | | | | LABORATORY | | | | | | SERVICES, | | | | | | CORE | | + + + + + + | PLATELET | 82 (L) | 150 - 400 K/cu | [facility] | | | COUNT | | mm | LABORATORY | | | | | | SERVICES, | | | | | | CORE | | + + + + + + | MPV | 11.6 | 9.7 - 12.3 fL | [facility] | | | | | | LABORATORY | | | | | | SERVICES, | | | | | | CORE | | + + + + + + | NRBC% | 1.6 (H) | 0.0 - 0.3 % | [facility] | | | | | | LABORATORY | | | | | | SERVICES, | | | | | | CORE | | + + + + + + | NRBC# | 0.43 (H) | 0.00 - 0.02 | [facility] | | | | | K/cu mm | LABORATORY | | | | | | SERVICES, | | | | | | CORE | | + + + + + + + + | Specimen | + + | Blood - Blood | + + + + + + + | Performing | Address | City/State/Zipcode | Phone Number | | Organization | | | | + + + + + | [facility] | [address] | [place] [address] | | | SERVICES, CORE | [address] | | | + + + + + INR (04/24/2014 6:30 PM PST) + + + + + + | Component | Value | Ref Range | Performed | Pathologist | | | | | At | Signature | + + + + + + | INR | 1.40 (H) | 0.90 - 1.20 INR | [facility] | | | | | | LABORATORY | | | | | | SERVICES, | | | | | | CORE | | + + + + + + + + | Specimen | + + | Blood - Blood | + + + + + | Narrative | Performed At | + + + | INR Therapeutic ranges for full anticoagulation: INR for | [facility] | | Venous Thromboembolism (2.0 - 3.0) INR INR for | LABORATORY | | most patients with mech. valves (2.5 - 3.5) INR | [facility] | + + + + + + + + | Performing | Address | City/State/Zipcode | Phone Number | | Organization | | | | + + + + + | [facility] | [phone] | [place] [address] | | | [facility]ANE[facility] | [address] | | | + + + + + CAPILLARY BLOOD GLUCOSE (NO CHG), POC (04/24/2014 5:09 PM PST) + +---------+ + + + | Component | Value | Ref Range | Performed | Pathologist | | | | | At | Signature | + +---------+ + + + | BLOOD | 130 (H) | 60 - 99 mg/dL | [facility] - | | | GLUCOSE, | | | [facility] | | | POC | | | [facility] | | | | | | OF CARE | | | | | | TESTS | | + +---------+ + + + + + | Specimen | + + | | + + + + + + + | Performing | Address | City/State/Zipcode | Phone Number | | Organization | | | | + + + + + | [facility] | [address] | [place], [place] | | | [facility] | [facility] | [phone] | | | TESTS | | | | + + + + + CAPILLARY BLOOD GLUCOSE (NO CHG), POC (04/24/2014 10:47 AM PST) + +-------+ + + + | Component | Value | Ref Range | Performed | Pathologist | | | | | At | Signature | + +-------+ + + + | BLOOD | 94 | 60 - 99 mg/dL | [facility] - | | | GLUCOSE, | | | [facility] | | | POC | | | [facility] | | | | | | OF CARE | | | | | | TESTS | | + +-------+ + + + + + | Specimen | + + | | + + + + + + + | Performing | Address | City/State/Zipcode | Phone Number | | Organization | | | | + + + + + | [facility] | [address] | [place], [place] | | | [facility] | [address] | [phone] | | | TESTS | | | | + + + + + CBC (HEMOGRAM) ONLY (04/24/2014 10:42 AM PST) + + + + + + | Component | Value | Ref Range | Performed | Pathologist | | | | | At | Signature | + + + + + + | WHITE CELL | 22.47 (H) | 4.40 - 11.00 | [facility] | | | COUNT | | K/cu mm | LABORATORY | | | | | | SERVICES, | | | | | | CORE | | + + + + + + | RED CELL | 3.13 (L) | 4.00 - 5.20 | [facility] | | | COUNT | | M/cu mm | LABORATORY | | | | | | SERVICES, | | | | | | CORE | | + + + + + + | HEMOGLOBIN | 9.1 (L) | 12.0 - 16.0 | [facility] | | | | | g/dL | LABORATORY | | | | | | SERVICES, | | | | | | CORE | | + + + + + + | HEMATOCRIT | 26.9 (L) | 36.0 - 46.0 % | [facility] | | | | | | LABORATORY | | | | | | SERVICES, | | | | | | CORE | | + + + + + + | MCV | 85.9 | 80.0 - 96.0 fL | [facility] | | | | | | LABORATORY | | | | | | SERVICES, | | | | | | CORE | | + + + + + + | MCHC | 33.8 | 33.0 - 35.5 | [facility] | | | | | g/dL | LABORATORY | | | | | | SERVICES, | | | | | | CORE | | + + + + + + | RDW SD | 49.1 (H) | 35.1 - 46.3 fL | [facility] | | | | | | LABORATORY | | | | | | SERVICES, | | | | | | CORE | | + + + + + + | PLATELET | 82 (L) | 150 - 400 K/cu | [facility] | | | COUNT | | mm | LABORATORY | | | | | | SERVICES, | | | | | | CORE | | + + + + + + | MPV | 11.4 | 9.7 - 12.3 fL | [facility] | | | | | | LABORATORY | | | | | | SERVICES, | | | | | | CORE | | + + + + + + | NRBC% | 1.8 (H) | 0.0 - 0.3 % | [facility] | | | | | | LABORATORY | | | | | | SERVICES, | | | | | | CORE | | + + + + + + | NRBC# | 0.41 (H) | 0.00 - 0.02 | [facility] | | | | | K/cu mm | LABORATORY | | | | | | SERVICES, | | | | | | CORE | | + + + + + + + + | Specimen | + + | Blood - Blood | + + + + + + + | Performing | Address | City/State/Zipcode | Phone Number | | Organization | | | | + + + + + | [facility] | [address] | [place] [address] | | | SERVICES, CORE | [address] | | | + + + + + INR (04/24/2014 10:42 AM PST) + + + + + + | Component | Value | Ref Range | Performed | Pathologist | | | | | At | Signature | + + + + + + | INR | 1.58 (H) | 0.90 - 1.20 INR | [facility] | | | | | | LABORATORY | | | | | | SERVICES, | | | | | | CORE | | + + + + + + + + | Specimen | + + | Blood - Blood | + + + + + | Narrative | Performed At | + + + | INR Therapeutic ranges for full anticoagulation: INR for | [facility] | | Venous Thromboembolism (2.0 - 3.0) INR INR for | LABORATORY | | most patients with mech. valves (2.5 - 3.5) INR | SERVICES, CORE | + + + + + + + + | Performing | Address | City/State/Zipcode | Phone Number | | Organization | | | | + + + + + | [facility] | [address] | [place], [place] [id number] | | | SERVICES, CORE | [address] | | | + + + + + X-RAY PORTABLE ABDOMEN 2 VIEWS (04/24/2014 9:15 AM PST) + + + + + + | Component | Value | Ref Range | Performed | Pathologist | | | | | At | Signature | + + + + + + | X-RAY | INDICATION:RSI, | | | | | PORTABLE | abdominal closure. | | | | | ABDOMEN 2 | TECHNIQUE:Supine frontal | | | | | VIEWS | and crosstable lateral | | | | | | portable intraoperative | | | | | | views of theabdomen are | | | | | | compared to CT obtained | | | | | | yesterday. | | | | | | FINDINGS/IMPRESSION:Surg | | | | | | ical sponges have been | | | | | | removed. No unexpected | | | | | | residual radiopaque | | | | | | foreignbody. NG tube in | | | | | | the body of the stomach. | | | | | | Surgical clips in the | | | | | | right upperquadrant. | | | | | | Embolization material in | | | | | | the left lower | | | | | | quadrant. Called to OR 6 | | | | | | at 9:15 AM. Attending | | | | | | Radiologists: URI | | | | | | MARGARITO LEBLANCuthor: URI | | | | | | MD DEANA I have | | | | | | personally viewed this | | | | | | procedure/exam, reviewed | | | | | | this report, and | | | | | | madechanges to it where | | | | | | appropriate. | | | | | | Final/Electronically | | | | | | signed / URI LEBLANC | | | | | | 04/24/2014 9:19 AM | | | | + + + + + + + + | Specimen | + + | | + + + +---------+ + + | Performing | Address | City/State/Zipcode | Phone Number | | Organization | | | | + +---------+ + + | [facility] | | | | | RADIOLOGY | | | | + +---------+ + + CBC (HEMOGRAM) ONLY (04/24/2014 6:30 AM PST) + + + + + + | Component | Value | Ref Range | Performed | Pathologist | | | | | At | Signature | + + + + + + | WHITE CELL | 26.55 (H) | 4.40 - 11.00 | [facility] | | | COUNT | | K/cu mm | LABORATORY | | | | | | SERVICES, | | | | | | CORE | | + + + + + + | RED CELL | 3.48 (L) | 4.00 - 5.20 | [facility] | | | COUNT | | M/cu mm | LABORATORY | | | | | | SERVICES, | | | | | | CORE | | + + + + + + | HEMOGLOBIN | 10.3 (L) | 12.0 - 16.0 | [facility] | | | | | g/dL | LABORATORY | | | | | | SERVICES, | | | | | | CORE | | + + + + + + | HEMATOCRIT | 29.5 (L) | 36.0 - 46.0 % | [facility] | | | | | | LABORATORY | | | | | | SERVICES, | | | | | | CORE | | + + + + + + | MCV | 84.8 | 80.0 - 96.0 fL | [facility] | | | | | | LABORATORY | | | | | | SERVICES, | | | | | | CORE | | + + + + + + | MCHC | 34.9 | 33.0 - 35.5 | [facility] | | | | | g/dL | LABORATORY | | | | | | SERVICES, | | | | | | CORE | | + + + + + + | RDW SD | 48.1 (H) | 35.1 - 46.3 fL | [facility] | | | | | | LABORATORY | | | | | | SERVICES, | | | | | | CORE | | + + + + + + | PLATELET | 83 (L) | 150 - 400 K/cu | [facility] | | | COUNT | | mm | LABORATORY | | | | | | SERVICES, | | | | | | CORE | | + + + + + + | MPV | 10.3 | 9.7 - 12.3 fL | [facility] | | | | | | LABORATORY | | | | | | SERVICES, | | | | | | CORE | | + + + + + + | NRBC% | 1.7 (H) | 0.0 - 0.3 % | [facility] | | | | | | LABORATORY | | | | | | SERVICES, | | | | | | CORE | | + + + + + + | NRBC# | 0.45 (H) | 0.00 - 0.02 | [facility] | | | | | K/cu mm | LABORATORY | | | | | | SERVICES, | | | | | | CORE | | + + + + + + + + | Specimen | + + | Blood - Blood | + + + + + + + | Performing | Address | City/State/Zipcode | Phone Number | | Organization | | | | + + + + + | [facility] | [address] | [place] [address] | | | ARON, CORE | [address] | | | + + + + + INR (04/24/2014 6:30 AM PST) + + + + + + | Component | Value | Ref Range | Performed | Pathologist | | | | | At | Signature | + + + + + + | INR | 1.47 (H) | 0.90 - 1.20 INR | [facility] | | | | | | LABORATORY | | | | | | SERVICES, | | | | | | CORE | | + + + + + + + + | Specimen | + + | Blood - Blood | + + + + + | Narrative | Performed At | + + + | INR Therapeutic ranges for full anticoagulation: INR for | [facility] | | Venous Thromboembolism (2.0 - 3.0) INR INR for | LABORATORY | | most patients with mech. valves (2.5 - 3.5) INR | SERVICES CORE | + + + + + + + + | Performing | Address | City/State/Zipcode | Phone Number | | Organization | | | | + + + + + | [facility] | [address] | [place] [address] | | | SERVICES, JANELL | [address] | | | + + + + + X-RAY PORTABLE CHEST 1 VIEW (04/24/2014 5:32 AM PST) + + + + + + | Component | Value | Ref Range | Performed | Pathologist | | | | | At | Signature | + + + + + + | X-RAY | STUDY: VT CHEST 1 VIEW | | | | | PORTABLE | 04/24/14 05:32:00 | | | | | CHEST 1 | COMPARISON: 04/23/14 | | | | | VIEW | HISTORY: Crohn's | | | | | | disease. COPD. | | | | | | Retroperitoneal | | | | | | hemorrhage. FINDINGS: | | | | | | Portable AP chest x-ray | | | | | | demonstrates an | | | | | | intubated patient with | | | | | | an NG tubepresent as | | | | | | well as a right IJ | | | | | | central line, right | | | | | | PICC, and left | | | | | | subclaviancentral line. | | | | | | There is a left upper | | | | | | abdominal surgical drain | | | | | | evident. Thereis a | | | | | | small left pleural | | | | | | effusion present which | | | | | | may be mildly increased | | | | | | in sizefrom the previous | | | | | | study there is | | | | | | associated compressive | | | | | | atelectasis | | | | | | orconsolidation is | | | | | | noted. There is no | | | | | | pneumothorax. The | | | | | | right lung is | | | | | | largelyclear. There is | | | | | | no cardiac enlargement | | | | | | or pulmonary edema. | | | | | | IMPRESSION: Left pleural | | | | | | effusion perhaps | | | | | | slightly increased in | | | | | | size in the previous | | | | | | studywith associated | | | | | | compressive atelectasis | | | | | | or lung consolidation. | | | | | | Attending Radiologists: | | | | | | FAY BERNAL MDAuthor: | | | | | | FAY BERNAL MD I have | | | | | | personally viewed this | | | | | | procedure/exam, reviewed | | | | | | this report, and | | | | | | madechanges to it where | | | | | | appropriate. | | | | | | Final/Electronically | | | | | | signed / FAY BERNAL | | | | | | 04/24/2014 10:49 AM | | | | + + + + + + + + | Specimen | + + | | + + + +---------+ + + | Performing | Address | City/State/Zipcode | Phone Number | | Organization | | | | + +---------+ + + | [facility] DEPARTMENT | | | | | RADIOLOGY | | | | + +---------+ + + CBC (HEMOGRAM) ONLY (04/24/2014 2:00 AM PST) + + + + + + | Component | Value | Ref Range | Performed | Pathologist | | | | | At | Signature | + + + + + + | WHITE CELL | 27.57 (H) | 4.40 - 11.00 | [facility] | | | COUNT | | K/cu mm | LABORATORY | | | | | | SERVICES, | | | | | | CORE | | + + + + + + | RED CELL | 3.80 (L) | 4.00 - 5.20 | [facility] | | | COUNT | | M/cu mm | LABORATORY | | | | | | SERVICES, | | | | | | CORE | | + + + + + + | HEMOGLOBIN | 11.3 (L) | 12.0 - 16.0 | [facility] | | | | | g/dL | LABORATORY | | | | | | SERVICES, | | | | | | CORE | | + + + + + + | HEMATOCRIT | 32.1 (L) | 36.0 - 46.0 % | [facility] | | | | | | LABORATORY | | | | | | SERVICES, | | | | | | CORE | | + + + + + + | MCV | 84.5 | 80.0 - 96.0 fL | [facility] | | | | | | LABORATORY | | | | | | SERVICES, | | | | | | CORE | | + + + + + + | MCHC | 35.2 | 33.0 - 35.5 | [facility] | | | | | g/dL | LABORATORY | | | | | | SERVICES, | | | | | | CORE | | + + + + + + | RDW SD | 46.5 (H) | 35.1 - 46.3 fL | [facility] | | | | | | LABORATORY | | | | | | SERVICES, | | | | | | CORE | | + + + + + + | PLATELET | 84 (L) | 150 - 400 K/cu | [facility] | | | COUNT | | mm | LABORATORY | | | | | | SERVICES, | | | | | | CORE | | + + + + + + | MPV | 11.0 | 9.7 - 12.3 fL | [facility] | | | | | | LABORATORY | | | | | | SERVICES, | | | | | | CORE | | + + + + + + | NRBC% | 1.9 (H) | 0.0 - 0.3 % | [facility] | | | | | | LABORATORY | | | | | | SERVICES, | | | | | | CORE | | + + + + + + | NRBC# | 0.53 (H) | 0.00 - 0.02 | [facility] | | | | | K/cu mm | LABORATORY | | | | | | ARON, | | | | | | CORE | | + + + + + + + + | Specimen | + + | Blood - Blood | + + + + + + + | Performing | Address | City/State/Zipcode | Phone Number | | Organization | | | | + + + + + | [facility] | [address] | [place] [address] | | | JANELL SHARP | [address] | | | + + + + + RENAL FUNCTION SET (NA,K,CL,CO2,BUN,CREAT,GLUC,CA,PHOS,ALB ) (04/24/2014 2:00 AM PST) + + + + + + | Component | Value | Ref Range | Performed | Pathologist | | | | | At | Signature | + + + + + + | GLUCOSE, | 107 (H) | 60 - 99 mg/dL | [facility] | | | PLASMA | | | LABORATORY | | | (LAB) | | | SERVICES, | | | | | | CORE | | + + + + + + | BUN, PLASMA | 38 (H) | 6 - 20 mg/dL | [facility] | | | (LAB) | | | LABORATORY | | | | | | SERVICES, | | | | | | CORE | | + + + + + + | CREATININE | 1.21 (H) | 0.60 - 1.10 | [facility] | | | PLASMA | | mg/dL | LABORATORY | | | (LAB) | | | SERVICES, | | | | | | CORE | | + + + + + + | EGFR | 55 (L) | >60 mL/min | [facility] | | | - | | | LABORATORY | | | KYRGYZ | | | SERVICES, | | | | | | CORE | | + + + + + + | EGFR NON | 46 (L) | >60 mL/min | [facility] | | | -LUIS | | | LABORATORY | | | RICAN | | | SERVICES, | | | | | | CORE | | + + + + + + | SODIUM, | 150 (H) | 136 - 145 | [facility] | | | PLASMA | | mmol/L | LABORATORY | | | (LAB) | | | SERVICES, | | | | | | CORE | | + + + + + + | POTASSIUM, | 3.8 | 3.4 - 5.0 | [facility] | | | PLASMA | | mmol/L | LABORATORY | | | (LAB) | | | SERVICES, | | | | | | CORE | | + + + + + + | CHLORIDE, | 115 (H) | 97 - 108 mmol/L | [facility] | | | PLASMA | | | LABORATORY | | | (LAB) | | | SERVICES, | | | | | | CORE | | + + + + + + | TOTAL CO2, | 27 | 21 - 32 mmol/L | [facility] | | | PLASMA | | | LABORATORY | | | (LAB) | | | SERVICES, | | | | | | CORE | | + + + + + + | CALCIUM, | 8.5 (L) | 8.6 - 10.2 | [facility] | | | PLASMA | | mg/dL | LABORATORY | | | (LAB) | | | SERVICES, | | | | | | CORE | | + + + + + + | ALBUMIN, | 1.9 (L) | 3.5 - 4.7 g/dL | [facility] | | | PLASMA | | | LABORATORY | | | (LAB) | | | SERVICES, | | | | | | CORE | | + + + + + + | PHOSPHORUS, | 5.9 (H) | 2.4 - 4.7 mg/dL | [facility] | | | PLASMA | | | LABORATORY | | | (LAB) | | | SERVICES, | | | | | | CORE | | + + + + + + | POTASSIUM | No Hemo | | [facility] | | | CMNT | | | LABORATORY | | | | | | SERVICES, | | | | | | CORE | | + + + + + + | ANION GAP | 8 | mmol/L | [facility] | | | | | | LABORATORY | | | | | | SERVICES, | | | | | | CORE | | + + + + + + | ANION | 13 (H) | 4 - 11 mmol/L | [facility] | | | GAP(ALB | | | LABORATORY | | | CORRECTED) | | | SERVICES, | | | | | | CORE | | + + + + + + + + | Specimen | + + | Blood - Blood | + + + + + | Narrative | Performed At | + + + | GFR is estimated using the MDRD equation recommended by the | [facility] | | National Kidney Disease Education Program. Estimated GFR | LABORATORY | | Interpretive Information: <60 mL/min/1.73 sq m | SERVICES, CORE | | Chronic Kidney Disease <15 mL/min/1.73 sq m | | | Kidney Failure Estimated GFR greater that 60 mL/min/1.73 sq m is of | | | limited clinical value. The MDRD equation is not valid in the | | | following situations: - Patients under 18 years of age - Severe | | | malnutrition or obesity - Vegetarian diet - Rapidly changing kidney | | | function | | + + + + + + + + | Performing | Address | City/State/Zipcode | Phone Number | | Organization | | | | + + + + + | [facility] | [address] | [place] [address] | | | SERVICES, CORE | [address] | | | + + + + + MAGNESIUM, PLASMA (04/24/2014 2:00 AM PST) + +-------+ + + + | Component | Value | Ref Range | Performed | Pathologist | | | | | At | Signature | + +-------+ + + + | MAGNESIUM,P | 1.9 | 1.8 - 2.5 mg/dL | [facility] | | | LASMA | | | LABORATORY | | | | | | ARON, | | | | | | CORE | | + +-------+ + + + + + | Specimen | + + | Blood - Blood | + + + + + + + | Performing | Address | City/State/Zipcode | Phone Number | | Organization | | | | + + + + + | [facility] | [address] | [place] [address] | | | SERVICES, CORE | [address] | | | + + + + + INR (04/24/2014 2:00 AM PST) + + + + + + | Component | Value | Ref Range | Performed | Pathologist | | | | | At | Signature | + + + + + + | INR | 1.38 (H) | 0.90 - 1.20 INR | [facility] | | | | | | LABORATORY | | | | | | SERVICES, | | | | | | CORE | | + + + + + + + + | Specimen | + + | Blood - Blood | + + + + + | Narrative | Performed At | + + + | INR Therapeutic ranges for full anticoagulation: INR for | [facility] | | Venous Thromboembolism (2.0 - 3.0) INR INR for | LABORATORY | | most patients with mech. valves (2.5 - 3.5) INR | SERVICES, CORE | + + + + + + + + | Performing | Address | City/State/Zipcode | Phone Number | | Organization | | | | + + + + + | [facility] | [address] | [place] [address] | | | SERVICES, CORE | [address] | | | + + + + + ELLIOT ROTH (04/24/2014 12:59 AM PST) + +---------+ + + + | Component | Value | Ref Range | Performed | Pathologist | | | | | At | Signature | + +---------+ + + + | LACTATE, | 2.3 (H) | 0.5 - 1.6 | [facility] | | | POC ABL | | mmol/L | RESPIRATORY | | | | | | THERAPY | | + +---------+ + + + + + | Specimen | + + | | + + + + + + + | Performing | Address | City/State/Zipcode | Phone Number | | Organization | | | | + + + + + | [facility] | [address] | [place], [place] | | | THERAPY | [address] | [address] | | + + + + + BLOOD GAS ART, POC RESP (04/24/2014 12:59 AM PST) + + + + + + | Component | Value | Ref Range | Performed | Pathologist | | | | | At | Signature | + + + + + + | HCO3 | 30.1 (H) | 21 - 28 mmol/L | [facility] | | | ARTERIAL, | | | RESPIRATORY | | | POC | | | THERAPY | | + + + + + + | PCO2 | 45 (H) | 32 - 43 mmHg | [facility] | | | ARTERIAL, | | | RESPIRATORY | | | POC | | | THERAPY | | + + + + + + | PH | 7.43 | 7.37 - 7.44 | [facility] | | | ARTERIAL, | | | RESPIRATORY | | | POC | | | THERAPY | | + + + + + + | BASE EXCESS | 5.8 | | [facility] | | | ART, POC | | | RESPIRATORY | | | | | | THERAPY | | + + + + + + | CALC %O2 | 95.4 | 92.0 - 98.0 % | [facility] | | | SAT ART, | | | RESPIRATORY | | | POC | | | THERAPY | | + + + + + + | PO2 | 70 (L) | 72 - 104 mmHg | [facility] | | | ARTERIAL, | | | RESPIRATORY | | | POC | | | THERAPY | | + + + + + + | FIO2 ART, | 40.0 | | [facility] | | | POC | | | RESPIRATORY | | | | | | THERAPY | | + + + + + + | PAT TEMP | 36.8 | | [facility] | | | ART, POC | | | RESPIRATORY | | | | | | THERAPY | | + + + + + + + + | Specimen | + + | | + + + + + + + | Performing | Address | City/State/Zipcode | Phone Number | | Organization | | | | + + + + + | [facility] | [address] | [place], [place] | | | THERAPY | [address] | [address] | | + + + + + RENAL FUNCTION SET (NA,K,CL,CO2,BUN,CREAT,GLUC,CA,PHOS,ALB ) (04/23/2014 10:00 PM PST) + + + + + + | Component | Value | Ref Range | Performed | Pathologist | | | | | At | Signature | + + + + + + | GLUCOSE, | 95 | 60 - 99 mg/dL | [facility] | | | PLASMA | | | LABORATORY | | | (LAB) | | | SERVICES, | | | | | | CORE | | + + + + + + | BUN, PLASMA | 37 (H) | 6 - 20 mg/dL | [facility] | | | (LAB) | | | LABORATORY | | | | | | SERVICES, | | | | | | CORE | | + + + + + + | CREATININE | 1.26 (H) | 0.60 - 1.10 | [facility] | | | PLASMA | | mg/dL | LABORATORY | | | (LAB) | | | SERVICES, | | | | | | CORE | | + + + + + + | EGFR | 53 (L) | >60 mL/min | [facility] | | | - | | | LABORATORY | | | KYRGYZ | | | SERVICES, | | | | | | CORE | | + + + + + + | EGFR NON | 44 (L) | >60 mL/min | [facility] | | | -LUIS | | | LABORATORY | | | RICAN | | | SERVICES, | | | | | | CORE | | + + + + + + | SODIUM, | 151 (H) | 136 - 145 | [facility] | | | PLASMA | | mmol/L | LABORATORY | | | (LAB) | | | SERVICES, | | | | | | CORE | | + + + + + + | POTASSIUM, | 3.9 | 3.4 - 5.0 | [facility] | | | PLASMA | | mmol/L | LABORATORY | | | (LAB) | | | SERVICES, | | | | | | CORE | | + + + + + + | CHLORIDE, | 115 (H) | 97 - 108 mmol/L | [facility] | | | PLASMA | | | LABORATORY | | | (LAB) | | | SERVICES, | | | | | | CORE | | + + + + + + | TOTAL CO2, | 29 | 21 - 32 mmol/L | [facility] | | | PLASMA | | | LABORATORY | | | (LAB) | | | SERVICES, | | | | | | CORE | | + + + + + + | CALCIUM, | 8.1 (L) | 8.6 - 10.2 | [facility] | | | PLASMA | | mg/dL | LABORATORY | | | (LAB) | | | SERVICES, | | | | | | CORE | | + + + + + + | ALBUMIN, | 1.8 (L) | 3.5 - 4.7 g/dL | [facility] | | | PLASMA | | | LABORATORY | | | (LAB) | | | SERVICES, | | | | | | CORE | | + + + + + + | PHOSPHORUS, | 5.9 (H) | 2.4 - 4.7 mg/dL | [facility] | | | PLASMA | | | LABORATORY | | | (LAB) | | | SERVICES, | | | | | | CORE | | + + + + + + | POTASSIUM | No Hemo | | [facility] | | | CMNT | | | LABORATORY | | | | | | SERVICES, | | | | | | CORE | | + + + + + + | ANION GAP | 7 | mmol/L | [facility] | | | | | | LABORATORY | | | | | | SERVICES, | | | | | | CORE | | + + + + + + | ANION | 12 (H) | 4 - 11 mmol/L | [facility] | | | GAP(ALB | | | LABORATORY | | | CORRECTED) | | | SERVICES, | | | | | | CORE | | + + + + + + + + | Specimen | + + | Blood - Blood | + + + + + | Narrative | Performed At | + + + | GFR is estimated using the MDRD equation recommended by the | [facility] | | National Kidney Disease Education Program. Estimated GFR | LABORATORY | | Interpretive Information: <60 mL/min/1.73 sq m | SERVICES, CORE | | Chronic Kidney Disease <15 mL/min/1.73 sq m | | | Kidney Failure Estimated GFR greater that 60 mL/min/1.73 sq m is of | | | limited clinical value. The MDRD equation is not valid in the | | | following situations: - Patients under 18 years of age - Severe | | | malnutrition or obesity - Vegetarian diet - Rapidly changing kidney | | | function | | + + + + + + + + | Performing | Address | City/State/Zipcode | Phone Number | | Organization | | | | + + + + + | [facility] | [address] | [place] [address] | | | SERVICES, CORE | [address] | | | + + + + + CREATININE, URINE (04/23/2014 9:59 PM PST) + +--------+ + + + | Component | Value | Ref Range | Performed | Pathologist | | | | | At | Signature | + +--------+ + + + | CREATININE | 50.80 | mg/dL | [facility] | | | CONC UR | | | LABORATORY | | | | | | SERVICES, | | | | | | CORE | | + +--------+ + + + | URINE | Random | | [facility] | | | INTERVAL | | | LABORATORY | | | | | | SERVICES, | | | | | | CORE | | + +--------+ + + + | URINE | Spot | | [facility] | | | VOLUME | | | LABORATORY | | | | | | SERVICES, | | | | | | CORE | | + +--------+ + + + + + | Specimen | + + | Urine - Urine | + + + + + | Narrative | Performed At | + + + | Normal values based on 24 hour collection interval. Patient | [facility] | | results are calculated from actual collection interval and volume. | LABORATORY | | | SERVICES, CORE | + + + + + + + + | Performing | Address | City/State/Zipcode | Phone Number | | Organization | | | | + + + + + | [facility] | [address] | [place] [address] | | | SERVICES, CORE | [address] | | | + + + + + SODIUM TOTAL, URINE (04/23/2014 9:59 PM PST) + +--------+ + + + | Component | Value | Ref Range | Performed | Pathologist | | | | | At | Signature | + +--------+ + + + | SODIUM CONC | 7 | mmol/L | [facility] | | | URINE | | | LABORATORY | | | | | | SERVICES, | | | | | | CORE | | + +--------+ + + + | URINE | Random | | [facility] | | | INTERVAL | | | LABORATORY | | | | | | SERVICES, | | | | | | CORE | | + +--------+ + + + | URINE | Spot | | [facility] | | | VOLUME | | | LABORATORY | | | | | | SERVICES, | | | | | | CORE | | + +--------+ + + + + + | Specimen | + + | Urine - Urine | + + + + + | Narrative | Performed At | + + + | Normal values based on 24 hour collection interval. Patient | [facility] | | results are calculated from actual collection interval and volume. | LABORATORY | | | SERVICES, CORE | + + + + + + + + | Performing | Address | City/State/Zipcode | Phone Number | | Organization | | | | + + + + + | [facility] | [address] | [place] [address] | | | SERVICES, CORE | [address] | | | + + + + + HEMATOCRIT (04/23/2014 9:14 PM PST) + + + + + + | Component | Value | Ref Range | Performed | Pathologist | | | | | At | Signature | + + + + + + | HEMATOCRIT | 32.1 (L) | 36.0 - 46.0 % | [facility] | | | | | | LABORATORY | | | | | | SERVICES, | | | | | | CORE | | + + + + + + + + | Specimen | + + | Blood - Blood | + + + + + + + | Performing | Address | City/State/Zipcode | Phone Number | | Organization | | | | + + + + + | [facility] | [address] | [place] [address] | | | SERVICES, CORE | [address] | | | + + + + + LACTIC ACID (04/23/2014 6:58 PM PST) + +-------+ + + + | Component | Value | Ref Range | Performed | Pathologist | | | | | At | Signature | + +-------+ + + + | LACTATE | 2.4 | mmol/L | [facility] | | | | | | LABORATORY | | | | | | SERVICES, | | | | | | CORE | | + +-------+ + + + + + | Specimen | + + | Blood - Blood | + + + + + | Narrative | Performed At | + + + | Reference Range: Venous blood: 0.5 - 2.2 mmol/L | [facility] | | Arterial blood: 0.5 - 1.6 mmol/L | LABORATORY | | | JANELL SHARP | + + + + + + + + | Performing | Address | City/State/Zipcode | Phone Number | | Organization | | | | + + + + + | [facility] | [address] | [place] [address] | | | SERVICES, JANELL | [address] | | | + + + + + BLOOD GASES, ARTERIAL - LAB (04/23/2014 6:58 PM PST) + + + + + + | Component | Value | Ref Range | Performed | Pathologist | | | | | At | Signature | + + + + + + | PAT TEMP | Comment: Not given | Degree C | [facility] | | | ARTERIAL | | | LABORATORY | | | | | | SERVICES, | | | | | | CORE | | + + + + + + | FIO2 | Comment: Not given | | [facility] | | | ARTERIAL | | | LABORATORY | | | | | | SERVICES, | | | | | | CORE | | + + + + + + | PH ARTERIAL | 7.42 | 7.37 - 7.44 | [facility] | | | | | | LABORATORY | | | | | | SERVICES, | | | | | | CORE | | + + + + + + | PCO2 | 42 | 32 - 43 mmHg | [facility] | | | ARTERIAL | | | LABORATORY | | | | | | SERVICES, | | | | | | CORE | | + + + + + + | PO2 | 76 | 72 - 104 mmHg | [facility] | | | ARTERIAL | | | LABORATORY | | | | | | SERVICES, | | | | | | CORE | | + + + + + + | HCO3 | 27 | 21 - 28 mmol/L | [facility] | | | ARTERIAL | | | LABORATORY | | | | | | SERVICES, | | | | | | CORE | | + + + + + + | TOTAL CO2 | 28 | 22 - 28 mmol/L | [facility] | | | ARTERIAL | | | LABORATORY | | | | | | SERVICES, | | | | | | CORE | | + + + + + + | BASE EXCESS | 2.8 | | [facility] | | | ARTERIAL | | | LABORATORY | | | | | | SERVICES, | | | | | | CORE | | + + + + + + | O2 SAT, | 95.4 | 92.0 - 98.0 | [facility] | | | ARTERIAL | | | LABORATORY | | | | | | SERVICES, | | | | | | CORE | | + + + + + + | PAO2/FIO2 | | >300 mmHg | [facility] | | | RATIO | | | LABORATORY | | | | | | SERVICES, | | | | | | CORE | | + + + + + + + + | Specimen | + + | Blood - Blood | + + + + + + + | Performing | Address | City/State/Zipcode | Phone Number | | Organization | | | | + + + + + | [facility] | [address] | [place] [address] | | | SERVICES, CORE | [address] | | | + + + + + CBC (HEMOGRAM) ONLY (04/23/2014 6:29 PM PST) + + + + + + | Component | Value | Ref Range | Performed | Pathologist | | | | | At | Signature | + + + + + + | WHITE CELL | 27.38 (H) | 4.40 - 11.00 | [facility] | | | COUNT | | K/cu mm | LABORATORY | | | | | | SERVICES, | | | | | | CORE | | + + + + + + | RED CELL | 3.91 (L) | 4.00 - 5.20 | [facility] | | | COUNT | | M/cu mm | LABORATORY | | | | | | SERVICES, | | | | | | CORE | | + + + + + + | HEMOGLOBIN | 11.5 (L) | 12.0 - 16.0 | [facility] | | | | | g/dL | LABORATORY | | | | | | SERVICES, | | | | | | CORE | | + + + + + + | HEMATOCRIT | 32.9 (L) | 36.0 - 46.0 % | [facility] | | | | | | LABORATORY | | | | | | SERVICES, | | | | | | CORE | | + + + + + + | MCV | 84.1 | 80.0 - 96.0 fL | [facility] | | | | | | LABORATORY | | | | | | SERVICES, | | | | | | CORE | | + + + + + + | MCHC | 35.0 | 33.0 - 35.5 | [facility] | | | | | g/dL | LABORATORY | | | | | | SERVICES, | | | | | | CORE | | + + + + + + | RDW SD | 45.1 | 35.1 - 46.3 fL | [facility] | | | | | | LABORATORY | | | | | | SERVICES, | | | | | | CORE | | + + + + + + | PLATELET | 85 (L) | 150 - 400 K/cu | [facility] | | | COUNT | | mm | LABORATORY | | | | | | SERVICES, | | | | | | CORE | | + + + + + + | MPV | 11.0 | 9.7 - 12.3 fL | [facility] | | | | | | LABORATORY | | | | | | SERVICES, | | | | | | CORE | | + + + + + + | NRBC% | 2.5 (H) | 0.0 - 0.3 % | [facility] | | | | | | LABORATORY | | | | | | SERVICES, | | | | | | CORE | | + + + + + + | NRBC# | 0.69 (H) | 0.00 - 0.02 | [facility] | | | | | K/cu mm | LABORATORY | | | | | | SERVICES, | | | | | | CORE | | + + + + + + + + | Specimen | + + | Blood - Blood | + + + + + + + | Performing | Address | City/State/Zipcode | Phone Number | | Organization | | | | + + + + + | [facility] | [address] | [place] [address] | | | SERVICES, CORE | [address] | | | + + + + + RENAL FUNCTION SET (NA,K,CL,CO2,BUN,CREAT,GLUC,CA,PHOS,ALB ) (04/23/2014 6:29 PM PST) + + + + + + | Component | Value | Ref Range | Performed | Pathologist | | | | | At | Signature | + + + + + + | GLUCOSE, | 90 | 60 - 99 mg/dL | [facility] | | | PLASMA | | | LABORATORY | | | (LAB) | | | SERVICES, | | | | | | CORE | | + + + + + + | BUN, PLASMA | 34 (H) | 6 - 20 mg/dL | [facility] | | | (LAB) | | | LABORATORY | | | | | | SERVICES, | | | | | | CORE | | + + + + + + | CREATININE | 1.26 (H) | 0.60 - 1.10 | [facility] | | | PLASMA | | mg/dL | LABORATORY | | | (LAB) | | | SERVICES, | | | | | | CORE | | + + + + + + | EGFR | 53 (L) | >60 mL/min | [facility] | | | - | | | LABORATORY | | | KYRGYZ | | | SERVICES, | | | | | | CORE | | + + + + + + | EGFR NON | 44 (L) | >60 mL/min | [facility] | | | -LUIS | | | LABORATORY | | | RICAN | | | SERVICES, | | | | | | CORE | | + + + + + + | SODIUM, | 151 (H) | 136 - 145 | [facility] | | | PLASMA | | mmol/L | LABORATORY | | | (LAB) | | | SERVICES, | | | | | | CORE | | + + + + + + | POTASSIUM, | 3.6 | 3.4 - 5.0 | [facility] | | | PLASMA | | mmol/L | LABORATORY | | | (LAB) | | | SERVICES, | | | | | | CORE | | + + + + + + | CHLORIDE, | 114 (H) | 97 - 108 mmol/L | [facility] | | | PLASMA | | | LABORATORY | | | (LAB) | | | SERVICES, | | | | | | CORE | | + + + + + + | TOTAL CO2, | 29 | 21 - 32 mmol/L | [facility] | | | PLASMA | | | LABORATORY | | | (LAB) | | | SERVICES, | | | | | | CORE | | + + + + + + | CALCIUM, | 8.0 (L) | 8.6 - 10.2 | [facility] | | | PLASMA | | mg/dL | LABORATORY | | | (LAB) | | | SERVICES, | | | | | | CORE | | + + + + + + | ALBUMIN, | 1.9 (L) | 3.5 - 4.7 g/dL | [facility] | | | PLASMA | | | LABORATORY | | | (LAB) | | | SERVICES, | | | | | | CORE | | + + + + + + | PHOSPHORUS, | 5.7 (H) | 2.4 - 4.7 mg/dL | [facility] | | | PLASMA | | | LABORATORY | | | (LAB) | | | SERVICES, | | | | | | CORE | | + + + + + + | POTASSIUM | No Hemo | | [facility] | | | CMNT | | | LABORATORY | | | | | | SERVICES, | | | | | | CORE | | + + + + + + | ANION GAP | 8 | mmol/L | [facility] | | | | | | LABORATORY | | | | | | SERVICES, | | | | | | CORE | | + + + + + + | ANION | 13 (H) | 4 - 11 mmol/L | [facility] | | | GAP(ALB | | | LABORATORY | | | CORRECTED) | | | SERVICES, | | | | | | CORE | | + + + + + + + + | Specimen | + + | Blood - Blood | + + + + + | Narrative | Performed At | + + + | GFR is estimated using the MDRD equation recommended by the | [facility] | | National Kidney Disease Education Program. Estimated GFR | LABORATORY | | Interpretive Information: <60 mL/min/1.73 sq m | SERVICES, CORE | | Chronic Kidney Disease <15 mL/min/1.73 sq m | | | Kidney Failure Estimated GFR greater that 60 mL/min/1.73 sq m is of | | | limited clinical value. The MDRD equation is not valid in the | | | following situations: - Patients under 18 years of age - Severe | | | malnutrition or obesity - Vegetarian diet - Rapidly changing kidney | | | function | | + + + + + + + + | Performing | Address | City/State/Zipcode | Phone Number | | Organization | | | | + + + + + | [facility] | [address] | [place] [address] | | | SERVICES, CORE | [address] | | | + + + + + COAGULOPATHY PANEL (INR,APTT,FIBRINOGEN) (04/23/2014 6:29 PM PST) + + + + + + | Component | Value | Ref Range | Performed | Pathologist | | | | | At | Signature | + + + + + + | INR | 1.42 (H) | 0.90 - 1.20 INR | [facility] | | | | | | LABORATORY | | | | | | SERVICES, | | | | | | CORE | | + + + + + + | APTT | 37.3 (H) | 26.0 - 36.0 | [facility] | | | | | seconds | LABORATORY | | | | | | SERVICES, | | | | | | CORE | | + + + + + + | FIBRINOGEN | 315 | 200 - 450 mg/dL | [facility] | | | LEVEL | | | LABORATORY | | | | | | SERVICES, | | | | | | CORE | | + + + + + + + + | Specimen | + + | Blood - Blood | + + + + + | Narrative | Performed At | + + + | INR Therapeutic ranges for full anticoagulation: INR for | [facility] | | Venous Thromboembolism (2.0 - 3.0) INR INR for | LABORATORY | | most patients with mech. valves (2.5 - 3.5) INR APTT | [facility] | | Therapeutic Range: (75 - 120) sec | | | Heparin levels of 0.35 - 0.7 U/mL | | + + + + + + + + | Performing | Address | City/State/Zipcode | Phone Number | | Organization | | | | + + + + + | [facility] | [address] | [place] [address] | | | [facility] | [address] | | | + + + + + CAPILLARY BLOOD GLUCOSE (NO CHG), POC (04/23/2014 6:07 PM PST) + +-------+ + + + | Component | Value | Ref Range | Performed | Pathologist | | | | | At | Signature | + +-------+ + + + | BLOOD | 95 | 60 - 99 mg/dL | [facility] - | | | GLUCOSE, | | | [facility] | | | POC | | | [facility] | | | | | | OF CARE | | | | | | TESTS | | + +-------+ + + + + + | Specimen | + + | | + + + + + + + | Performing | Address | City/State/Zipcode | Phone Number | | Organization | | | | + + + + + | [facility] | [address] | [place], [place] | | | [facility] | [address] | [address] | | | TESTS | | | | + + + + + EMBOLIZATION NON-NEURO (04/23/2014 4:48 PM PST) + + + + + + | Component | Value | Ref Range | Performed | Pathologist | | | | | At | Signature | + + + + + + | EMBOLIZATIO | PROCEDURE: Pelvic | | | | | N NON-NEURO | arteriogram with | | | | | | embolization PRIMARY | | | | | | HYDROLOGICAL TECHNICAL OFFICER: Rudy | | | | | | Fortino Vang | | | | | | ANGIOGRAPHY ATTENDING: | | | | | | Nahun Galvez M.D. | | | | | | DIAGNOSIS: Massive | | | | | | retroperitoneal | | | | | | hemorrhage OPERATION 1: | | | | | | Catheterization of the | | | | | | abdominal aorta and | | | | | | aortogram OPERATION 2: | | | | | | Catheterization of the | | | | | | left fourth lumbar | | | | | | artery and arteriography | | | | | | OPERATION 3: | | | | | | Catheterization of left | | | | | | internal iliac artery | | | | | | with arteriography | | | | | | OPERATION 4: | | | | | | Catheterization of | | | | | | iliolumbar artery with | | | | | | arteriography OPERATION | | | | | | 5: Embolization of | | | | | | iliolumbar artery FLUORO | | | | | | TIME: 6.4 minutes | | | | | | CONTRAST: Omnipaque 350 | | | | | | -- 113 mL INDICATION FOR | | | | | | PROCEDURE: The patient | | | | | | was anticoagulated with | | | | | | warfarinpresented to | | | | | | outside hospital with a | | | | | | massive left | | | | | | retroperitoneal | | | | | | hemorrhage.She underwent | | | | | | an exploratory | | | | | | laparotomy but no | | | | | | bleeding site was | | | | | | identified.The patient | | | | | | is quiet massive | | | | | | transfusions. She is | | | | | | referred for | | | | | | arteriographyafter a CT | | | | | | angiogram demonstrated | | | | | | active extravasation in | | | | | | the leftretroperitoneum | | | | | | near the iliac crest. | | | | | | DESCRIPTION OF | | | | | | PROCEDURE: The patient's | | | | | | left was prepped and | | | | | | draped in asterile | | | | | | fashion. Using local | | | | | | anesthesia, the left | | | | | | common femoral artery | | | | | | wasentered | | | | | | percutaneously and a 5 | | | | | | Filipino vascular sheath | | | | | | was inserted. A 5 | | | | | | Frenchpigtail catheter | | | | | | was inserted and | | | | | | advanced into the | | | | | | abdominal aorta. | | | | | | Anaortogram was | | | | | | obtained. The pigtail | | | | | | catheter was exchanged | | | | | | for a 5 Filipino | | | | | | IMAcatheter. The left | | | | | | fourth lumbar artery was | | | | | | selectively | | | | | | catheterized | | | | | | andarteriography was | | | | | | performed. The catheter | | | | | | was then repositioned | | | | | | into the leftinternal | | | | | | iliac artery | | | | | | arteriography was | | | | | | performed. There | | | | | | appeared to | | | | | | beextravasation from a | | | | | | branch of the iliolumbar | | | | | | artery. A 3 Filipino | | | | | | microcatheterwas | | | | | | inserted coaxially and | | | | | | advanced into the | | | | | | iliolumbar artery. | | | | | | Arteriographywas | | | | | | performed. This | | | | | | demonstrated active | | | | | | extravasation from a | | | | | | small peripheralbranch | | | | | | of this vessel. The left | | | | | | iliolumbar artery was | | | | | | then embolized with a | | | | | | small amount of n-BCA | | | | | | gluemixed with lipiodol | | | | | | at a ratio of 1:2. The | | | | | | microcatheter was | | | | | | removedimmediately after | | | | | | glue injection. A | | | | | | completion internal | | | | | | iliac arteriogram | | | | | | wasobtained. The sheath | | | | | | was removed and entry | | | | | | site was compressed | | | | | | until hemostasiswas | | | | | | obtained. There were no | | | | | | complications. I was | | | | | | present for and | | | | | | personallysupervised the | | | | | | entire procedure. | | | | | | FINDINGS: The abdominal | | | | | | aortogram demonstrates | | | | | | mild atherosclerosis. | | | | | | The leftkidney is | | | | | | displaced superiorly by | | | | | | the large | | | | | | retroperitoneal | | | | | | hematoma. | | | | | | Surgicalpacking is noted | | | | | | in the left | | | | | | retroperitoneum. No | | | | | | extravasation was | | | | | | seen,however. | | | | | | Arteriography of the | | | | | | left fourth lumbar | | | | | | artery demonstrated no | | | | | | extravasation. | | | | | | Arteriography of the | | | | | | left internal iliac | | | | | | artery demonstrated a | | | | | | subtleabnormality near | | | | | | the iliac crest at was | | | | | | thought to be | | | | | | extravasation. No | | | | | | otherabnormalities were | | | | | | seen. Arteriography of | | | | | | the left iliolumbar | | | | | | artery demonstrated | | | | | | active extravasationfrom | | | | | | a very small branch | | | | | | this vessel near the | | | | | | left iliac crest. | | | | | | Following embolization | | | | | | with glue was noted | | | | | | throughout branches of | | | | | | the leftiliolumbar | | | | | | artery. Left internal | | | | | | iliac arteriography | | | | | | showed the | | | | | | iliolumbarartery and its | | | | | | branches to be | | | | | | occluded. No additional | | | | | | extravasation was seen. | | | | | | IMPRESSION: Bleeding was | | | | | | found to be from a | | | | | | small branch of the left | | | | | | iliolumbarartery. | | | | | | Embolization of this | | | | | | vessel was successfully | | | | | | performed. Attending | | | | | | Radiologists: NAHUN | | | | | | MARGARITO GALVEZuthor: NAHUN | | | | | | MD LENNY I have | | | | | | personally viewed this | | | | | | procedure/exam, reviewed | | | | | | this report, and | | | | | | madechanges to it where | | | | | | appropriate. | | | | | | Final/Electronically | | | | | | signed / NAHUN | | | | | | LENNY 04/27/2014 17:17 | | | | | | PM | | | | + + + + + + + + | Specimen | + + | | + + + +---------+ + + | Performing | Address | City/State/Zipcode | Phone Number | | Organization | | | | + +---------+ + + | [facility] | | | | | [facility]IOLOGY | | | | + +---------+ + + CTA ABDOMEN AND PELVIS WITH CONTRAST (04/23/2014 2:17 PM PST) + + + + + + | Component | Value | Ref Range | Performed | Pathologist | | | | | At | Signature | + + + + + + | CTA ABDOMEN | CTA ABDOMEN | | | | | AND PELVIS | ABDOMINOPELVIC CT WITH | | | | | W/ | AND WITHOUT IV CONTRAST. | | | | | CONTRAST | 3D RECONSTRUCTIONS | | | | | | WERE ALSOPERFORMED AND | | | | | | INTERPRETED. COMPARISON: | | | | | | CT abdomen and pelvis | | | | | | on 03/28/2012. FINDINGS: | | | | | | | | | | | | HEMORRHAGE/HEMATOMA:Ther | | | | | | e is a massive hematoma | | | | | | in the retroperitoneal | | | | | | space/iliac muscle with | | | | | | twoextravasations in the | | | | | | hematoma on arterial | | | | | | and portal phases (image | | | | | | 298, series4/image 285, | | | | | | series 10).A specific | | | | | | origin of the | | | | | | extravasation is not | | | | | | identical, however, | | | | | | leftiliolumbar artery is | | | | | | a possible cause | | | | | | regarding the | | | | | | distribution. Status | | | | | | post splenectomy and | | | | | | gauze packing. VASCULAR | | | | | | FINDING:Visualized | | | | | | abdominal aorta and | | | | | | iliac vessels are normal | | | | | | without evidence | | | | | | ofaneurysm, dissection | | | | | | or stenosis.The celiac | | | | | | artery, SMA, and SHAYLA are | | | | | | patent.There are single | | | | | | patent renal arteries | | | | | | bilaterally. LOWER | | | | | | THORAX: There are | | | | | | moderate bilateral | | | | | | pleural effusion and | | | | | | passiveatelectasis | | | | | | noted. Mild emphysema. | | | | | | HEPATOBILIARY: No focal | | | | | | hepatic lesions. | | | | | | Status post | | | | | | cholecystectomy. | | | | | | Nobiliary ductal | | | | | | dilatation. SPLEEN: | | | | | | Status post splenectomy. | | | | | | PANCREAS: No focal | | | | | | masses or ductal | | | | | | dilatation. ADRENALS: No | | | | | | adrenal nodules. | | | | | | KIDNEYS/URETERS: No | | | | | | hydronephrosis, stones, | | | | | | or solid mass lesions. | | | | | | PELVIC ORGANS/BLADDER: | | | | | | Unremarkable. PERITONEUM | | | | | | / RETROPERITONEUM: A | | | | | | massive hematoma in the | | | | | | retroperitonealspace/atiya | | | | | | ac muscle with | | | | | | extravasations, as above | | | | | | mentioned. Status | | | | | | postsplenectomy and | | | | | | gauze packing. LYMPH | | | | | | NODES: No | | | | | | lymphadenopathy. GI | | | | | | TRACT: There is mild | | | | | | wall | | | | | | thickening/irregularity | | | | | | of the ileum with | | | | | | mildsurrounding, | | | | | | representing | | | | | | inflammatory bowel | | | | | | disease. No distention. | | | | | | BONES AND SOFT TISSUES: | | | | | | The abdominal wall | | | | | | incision is not closed, | | | | | | but coveredon the | | | | | | surface with VAC in | | | | | | place. IMPRESSION:#1. | | | | | | Massive hematoma in the | | | | | | retroperitoneal | | | | | | space/iliac muscle with | | | | | | twoextravasations in the | | | | | | hematoma on arterial | | | | | | and portal phases (image | | | | | | 298, series4/image 285, | | | | | | series 10). Left | | | | | | iliolumbar artery is a | | | | | | possible cause | | | | | | regardingthe | | | | | | distribution.#2. Status | | | | | | post splenectomy and | | | | | | gauze packing, with the | | | | | | abdominal wall | | | | | | incisionremaining not | | | | | | closed, but covered on | | | | | | the surface with VAC in | | | | | | place.#3. Mild wall | | | | | | thickening/irregularity | | | | | | of the ileum with mild | | | | | | surrounding,representing | | | | | | inflammatory bowel | | | | | | disease. Attending | | | | | | Radiologists: KONRAD | | | | | | MARGARITO CALLEJASuthor: | | | | | | KONRAD CALLEJAS MD I | | | | | | have personally viewed | | | | | | this procedure/exam, | | | | | | reviewed this report, | | | | | | and madechanges to it | | | | | | where appropriate. | | | | | | Final/Electronically | | | | | | signed / KONRAD | | | | | | BRITTA 04/24/2014 | | | | | | 14:39 PM | | | | + + + + + + + + | Specimen | + + | | + + + +---------+ + + | Performing | Address | City/State/Zipcode | Phone Number | | Organization | | | | + +---------+ + + | [facility] | | | | | RADIOLOGY | | | | + +---------+ + + 12 LEAD ECG (04/23/2014 12:24 PM PST) + + + + + + | Component | Value | Ref Range | Performed | Pathologist | | | | | At | Signature | + + + + + + | VENTRICULAR | 120 | bpm | [facility] | | | RATE | | | OF | | | | | | CARDIOLOGY | | + + + + + + | ATRIAL RATE | 120 | bpm | [facility] | | | | | | OF | | | | | | CARDIOLOGY | | + + + + + + | P-R | 128 | ms | [facility] | | | INTERVAL | | | OF | | | | | | CARDIOLOGY | | + + + + + + | P AXIS | 24 | deg | [facility] | | | | | | OF | | | | | | CARDIOLOGY | | + + + + + + | QRS | 62 | ms | [facility] | | | DURATION | | | OF | | | | | | CARDIOLOGY | | + + + + + + | QT | 300 | ms | [facility] | | | | | | OF | | | | | | CARDIOLOGY | | + + + + + + | QTCB | 424 | ms | [facility] | | | | | | OF | | | | | | CARDIOLOGY | | + + + + + + | R AXIS | -63 | deg | [facility] | | | | | | OF | | | | | | CARDIOLOGY | | + + + + + + | T AXIS | 166 | deg | [facility] | | | | | | OF | | | | | | CARDIOLOGY | | + + + + + + | ECG | SINUS TACHYCARDIALOW | | [facility] | | | IMPRESSION | VOLTAGE IN FRONTAL | | OF | | | | LEADSNONSPECIFIC T | | CARDIOLOGY | | | | ABNORMALITIES, LATERAL | | | | | | LEADS- ABNORMAL ECG | | | | | | -Electronically signed | | | | | | by: LIZZ MATTA | | | | | | 04-23-2014 12:55:23 | | | | + + + + + + + + | Specimen | + + | | + + + + + | Narrative | Performed At | + + + | | [facility] | | | CARDIOLOGY | + + + + + | Procedure Note | + + | Emeka Elias - 04/23/2014 1:19 PM PST | + + + + + + + | Performing | Address | City/State/Zipcode | Phone Number | | Organization | | | | + + + + + | [facility] | [address] | [place], [place] | | | CARDIOLOGY | [address] | [address] | | + + + + + PRODUCT- RED CELLS LEUKOREDUCED (04/23/2014 11:49 AM PST) + + + + + + | Component | Value | Ref Range | Performed | Pathologist | | | | | At | Signature | + + + + + + | PRODUCT | -1 RED BLOOD CELL | | [facility] | | | DESCRIPTION | ADENINE-SALINE ADDED | | DEPARTMENT | | | | LEUKOCYTES REDUCED | | OF | | | | | | PATHOLOGY | | + + + + + + | PRODUCT | [id number] | | [facility] | | | UNIT # | | | DEPARTMENT | | | | | | OF | | | | | | PATHOLOGY | | + + + + + + | UNIT ABO | O | | [facility] | | | | | | DEPARTMENT | | | | | | OF | | | | | | PATHOLOGY | | + + + + + + | UNIT RH | POS | | [facility] | | | | | | DEPARTMENT | | | | | | OF | | | | | | PATHOLOGY | | + + + + + + | STATUS OF | Returned to Blood Bank | | [facility] | | | UNIT | | | DEPARTMENT | | | | | | OF | | | | | | PATHOLOGY | | + + + + + + | BLOOD | [id number] | | [facility] | | | PRODUCT | | | DEPARTMENT | | | CODE | | | OF | | | | | | PATHOLOGY | | + + + + + + + + | Specimen | + + | | + + + + + + + | Performing | Address | City/State/Zipcode | Phone Number | | Organization | | | | + + + + + | [facility] | [address] | [place] [address] | | | PATHOLOGY | [address] | | | + + + + + PRODUCT- RED CELLS LEUKOREDUCED (04/23/2014 11:49 AM PST) + + + + + + | Component | Value | Ref Range | Performed | Pathologist | | | | | At | Signature | + + + + + + | PRODUCT | -3 RED BLOOD CELLS | | [facility] | | | DESCRIPTION | ADENINE-SALINE ADDED | | DEPARTMENT | | | | LEUKOCYTES REDUCED | | OF | | | | | | PATHOLOGY | | + + + + + + | PRODUCT | [id number] | | [facility] | | | UNIT # | | | DEPARTMENT | | | | | | OF | | | | | | PATHOLOGY | | + + + + + + | UNIT ABO | O | | [facility] | | | | | | DEPARTMENT | | | | | | OF | | | | | | PATHOLOGY | | + + + + + + | UNIT RH | POS | | [facility] | | | | | | DEPARTMENT | | | | | | OF | | | | | | PATHOLOGY | | + + + + + + | STATUS OF | Returned to Blood Bank | | [facility] | | | UNIT | | | DEPARTMENT | | | | | | OF | | | | | | PATHOLOGY | | + + + + + + | BLOOD | [id number] | | [facility] | | | PRODUCT | | | DEPARTMENT | | | CODE | | | OF | | | | | | PATHOLOGY | | + + + + + + + + | Specimen | + + | | + + + + + + + | Performing | Address | City/State/Zipcode | Phone Number | | Organization | | | | + + + + + | [facility] DE[facility]MENT [facility] | [address] | [place] [address] | | | PATHOLOGY | [address] | | | + + + + + PRODUCT- RED CELLS LEUKOREDUCED (04/23/2014 11:49 AM PST) + + + + + + | Component | Value | Ref Range | Performed | Pathologist | | | | | At | Signature | + + + + + + | PRODUCT | -3 RED BLOOD CELLS | | [facility] | | | DESCRIPTION | ADENINE-SALINE ADDED | | DEPARTMENT | | | | LEUKOCYTES REDUCED | | OF | | | | | | PATHOLOGY | | + + + + + + | PRODUCT | [id number] | | [facility] | | | UNIT # | | | DEPARTMENT | | | | | | OF | | | | | | PATHOLOGY | | + + + + + + | UNIT ABO | O | | [facility] | | | | | | DEPARTMENT | | | | | | OF | | | | | | PATHOLOGY | | + + + + + + | UNIT RH | POS | | [facility] | | | | | | DEPARTMENT | | | | | | OF | | | | | | PATHOLOGY | | + + + + + + | STATUS OF | Returned to Blood Bank | | [facility] | | | UNIT | | | DEPARTMENT | | | | | | OF | | | | | | PATHOLOGY | | + + + + + + | BLOOD | [id number] | | [facility] | | | PRODUCT | | | DEPARTMENT | | | CODE | | | OF | | | | | | PATHOLOGY | | + + + + + + + + | Specimen | + + | | + + + + + + + | Performing | Address | City/State/Zipcode | Phone Number | | Organization | | | | + + + + + | [facility] | [address] | [place] [address] | | | PATHOLOGY | [address] | | | + + + + + PRODUCT- RED CELLS LEUKOREDUCED (04/23/2014 11:49 AM PST) + + + + + + | Component | Value | Ref Range | Performed | Pathologist | | | | | At | Signature | + + + + + + | PRODUCT | -1 RED BLOOD CELL | | [facility] | | | DESCRIPTION | ADENINE-SALINE ADDED | | DEPARTMENT | | | | LEUKOCYTES REDUCED | | OF | | | | | | PATHOLOGY | | + + + + + + | PRODUCT | [id number] | | [facility] | | | UNIT # | | | DEPARTMENT | | | | | | OF | | | | | | PATHOLOGY | | + + + + + + | UNIT ABO | O | | [facility] | | | | | | DEPARTMENT | | | | | | OF | | | | | | PATHOLOGY | | + + + + + + | UNIT RH | POS | | [facility] | | | | | | DEPARTMENT | | | | | | OF | | | | | | PATHOLOGY | | + + + + + + | STATUS OF | Returned to Blood Bank | | [facility] | | | UNIT | | | DEPARTMENT | | | | | | OF | | | | | | PATHOLOGY | | + + + + + + | BLOOD | [id number] | | [facility] | | | PRODUCT | | | DEPARTMENT | | | CODE | | | OF | | | | | | PATHOLOGY | | + + + + + + + + | Specimen | + + | | + + + + + + + | Performing | Address | City/State/Zipcode | Phone Number | | Organization | | | | + + + + + | [facility]MENT [facility] | [address] | [place] [address] | | | PATHOLOGY | [address] | | | + + + + + PRODUCT- RED CELLS LEUKOREDUCED (04/23/2014 11:49 AM PST) + + + + + + | Component | Value | Ref Range | Performed | Pathologist | | | | | At | Signature | + + + + + + | PRODUCT | -1 RED BLOOD CELL | | [facility] | | | DESCRIPTION | ADENINE-SALINE ADDED | | DEPARTMENT | | | | LEUKOCYTES REDUCED | | OF | | | | | | PATHOLOGY | | + + + + + + | PRODUCT | [id number] | | [facility] | | | UNIT # | | | DEPARTMENT | | | | | | OF | | | | | | PATHOLOGY | | + + + + + + | UNIT ABO | O | | [facility] | | | | | | DEPARTMENT | | | | | | OF | | | | | | PATHOLOGY | | + + + + + + | UNIT RH | POS | | [facility] | | | | | | DEPARTMENT | | | | | | OF | | | | | | PATHOLOGY | | + + + + + + | STATUS OF | Returned to Blood Bank | | [facility] | | | UNIT | | | DEPARTMENT | | | | | | OF | | | | | | PATHOLOGY | | + + + + + + | BLOOD | [id number] | | [facility] | | | PRODUCT | | | DEPARTMENT | | | CODE | | | OF | | | | | | PATHOLOGY | | + + + + + + + + | Specimen | + + | | + + + + + + + | Performing | Address | City/State/Zipcode | Phone Number | | Organization | | | | + + + + + | [facility] DEPARTMENT OF | [id number] | [place] [address] | | | PATHOLOGY | [address] | | | + + + + + PRODUCT- RED CELLS LEUKOREDUCED (04/23/2014 11:49 AM PST) + + + + + + | Component | Value | Ref Range | Performed | Pathologist | | | | | At | Signature | + + + + + + | PRODUCT | -3 RED BLOOD CELLS | | [facility] | | | DESCRIPTION | ADENINE-SALINE ADDED | | DEPARTMENT | | | | LEUKOCYTES REDUCED | | OF | | | | | | PATHOLOGY | | + + + + + + | PRODUCT | [id number] | | [facility] | | | UNIT # | | | DEPARTMENT | | | | | | OF | | | | | | PATHOLOGY | | + + + + + + | UNIT ABO | O | | [facility] | | | | | | DEPARTMENT | | | | | | OF | | | | | | PATHOLOGY | | + + + + + + | UNIT RH | POS | | [facility] | | | | | | DEPARTMENT | | | | | | OF | | | | | | PATHOLOGY | | + + + + + + | STATUS OF | Returned to Blood Bank | | [facility] | | | UNIT | | | DEPARTMENT | | | | | | OF | | | | | | PATHOLOGY | | + + + + + + | BLOOD | [id number] | | [facility] | | | PRODUCT | | | DEPARTMENT | | | CODE | | | OF | | | | | | PATHOLOGY | | + + + + + + + + | Specimen | + + | | + + + + + + + | Performing | Address | City/State/Zipcode | Phone Number | | Organization | | | | + + + + + | [facility] DEPARTMENT OF | [id number] | [place] [address] | | | PATHOLOGY | [address] | | | + + + + + X-RAY PORTABLE CHEST 1 VIEW (04/23/2014 11:41 AM PST) + + + + + + | Component | Value | Ref Range | Performed | Pathologist | | | | | At | Signature | + + + + + + | X-RAY | EXAM: [place] CHEST 1 VIEW | | | | | PORTABLE | 04/23/14 11:41:00 | | | | | CHEST 1 | HISTORY: Respiratory | | | | | VIEW | failure COMPARISON: None | | | | | | FINDINGS: Endotracheal | | | | | | tube has its tip 5 cm | | | | | | above the derrell. Right | | | | | | internaljugular central | | | | | | line catheter has its | | | | | | tip in the cavoatrial | | | | | | junction. | | | | | | Cardiacsilhouette is | | | | | | normal. Bilateral | | | | | | pleural effusions are | | | | | | present. There is | | | | | | nopneumothorax. | | | | | | Perihilar groundglass | | | | | | opacities/atelectasis | | | | | | are present, | | | | | | leftslightly greater | | | | | | than right. There is no | | | | | | pneumothorax. Drain is | | | | | | presentoverlying the | | | | | | left upper quadrant. | | | | | | IMPRESSION: Tubes and | | | | | | lines as above. | | | | | | Perihilar atelectasis, | | | | | | left greater than right. | | | | | | Smallbilateral | | | | | | effusions Attending | | | | | | Radiologists: EMIL Asher | | | | | | MARGARITO CARREROuthor: EMIL | | | | | | Lb CARRERO MD I have | | | | | | personally viewed this | | | | | | procedure/exam, reviewed | | | | | | this report, and | | | | | | madechanges to it where | | | | | | appropriate. | | | | | | Final/Electronically | | | | | | signed / EMIL Asher | | | | | | ALISE 04/23/2014 | | | | | | 13:55 PM | | | | + + + + + + + + | Specimen | + + | | + + + +---------+ + + | Performing | Address | City/State/Zipcode | Phone Number | | Organization | | | | + +---------+ + + | [facility] DEPARTMENT OF | | | | | RADIOLOGY | | | | + +---------+ + + PRODUCT - FRESH FROZEN PLASMA (04/23/2014 11:36 AM PST) + + + + + + | Component | Value | Ref Range | Performed | Pathologist | | | | | At | Signature | + + + + + + | PRODUCT | PLASMA THAWED | | [facility] | | | DESCRIPTION | | | DEPARTMENT | | | | | | OF | | | | | | PATHOLOGY | | + + + + + + | PRODUCT | [id number] | | [facility] | | | UNIT # | | | DEPARTMENT | | | | | | OF | | | | | | PATHOLOGY | | + + + + + + | UNIT ABO | A | | [facility] | | | | | | DEPARTMENT | | | | | | OF | | | | | | PATHOLOGY | | + + + + + + | UNIT RH | POS | | [facility] | | | | | | DEPARTMENT | | | | | | OF | | | | | | PATHOLOGY | | + + + + + + | STATUS OF | Returned to Blood Bank | | [facility] | | | UNIT | | | DEPARTMENT | | | | | | OF | | | | | | PATHOLOGY | | + + + + + + | BLOOD | [id number] | | [facility] | | | PRODUCT | | | DEPARTMENT | | | CODE | | | OF | | | | | | PATHOLOGY | | + + + + + + + + | Specimen | + + | | + + + + + + + | Performing | Address | City/State/Zipcode | Phone Number | | Organization | | | | + + + + + | [facility] DEPARTMENT OF | [address] | [place] [address] | | | PATHOLOGY | [address] | | | + + + + + PRODUCT - FRESH FROZEN PLASMA (04/23/2014 11:36 AM PST) + + + + + + | Component | Value | Ref Range | Performed | Pathologist | | | | | At | Signature | + + + + + + | PRODUCT | PLASMA THAWED | | [facility] | | | DESCRIPTION | | | DEPARTMENT | | | | | | OF | | | | | | PATHOLOGY | | + + + + + + | PRODUCT | [id number] | | [facility] | | | UNIT # | | | DEPARTMENT | | | | | | OF | | | | | | PATHOLOGY | | + + + + + + | UNIT ABO | A | | [facility] | | | | | | DEPARTMENT | | | | | | OF | | | | | | PATHOLOGY | | + + + + + + | UNIT RH | POS | | [facility] | | | | | | DEPARTMENT | | | | | | OF | | | | | | PATHOLOGY | | + + + + + + | STATUS OF | Returned to Blood Bank | | [facility] | | | UNIT | | | DEPARTMENT | | | | | | OF | | | | | | PATHOLOGY | | + + + + + + | BLOOD | [id number] | | [facility] | | | PRODUCT | | | DEPARTMENT | | | CODE | | | OF | | | | | | PATHOLOGY | | + + + + + + + + | Specimen | + + | | + + + + + + + | Performing | Address | City/State/Zipcode | Phone Number | | Organization | | | | + + + + + | [facility] DEPARTMENT OF | [address] | [place] [address] | | | PATHOLOGY | [address] | | | + + + + + PRODUCT - FRESH FROZEN PLASMA (04/23/2014 11:36 AM PST) + + + + + + | Component | Value | Ref Range | Performed | Pathologist | | | | | At | Signature | + + + + + + | PRODUCT | PLASMA THAWED | | [facility] | | | DESCRIPTION | | | DEPARTMENT | | | | | | OF | | | | | | PATHOLOGY | | + + + + + + | PRODUCT | [id number] | | [facility] | | | UNIT # | | | DEPARTMENT | | | | | | OF | | | | | | PATHOLOGY | | + + + + + + | UNIT ABO | A | | [facility] | | | | | | DEPARTMENT | | | | | | OF | | | | | | PATHOLOGY | | + + + + + + | UNIT RH | POS | | [facility] | | | | | | DEPARTMENT | | | | | | OF | | | | | | PATHOLOGY | | + + + + + + | STATUS OF | Returned to Blood Bank | | [facility] | | | UNIT | | | DEPARTMENT | | | | | | OF | | | | | | PATHOLOGY | | + + + + + + | BLOOD | [id number] | | [facility] | | | PRODUCT | | | DEPARTMENT | | | CODE | | | OF | | | | | | PATHOLOGY | | + + + + + + + + | Specimen | + + | | + + + + + + + | Performing | Address | City/State/Zipcode | Phone Number | | Organization | | | | + + + + + | [facility] DEPARTMENT OF | [address] | [place] [address] | | | PATHOLOGY | [address] | | | + + + + + PRODUCT - FRESH FROZEN PLASMA (04/23/2014 11:36 AM PST) + + + + + + | Component | Value | Ref Range | Performed | Pathologist | | | | | At | Signature | + + + + + + | PRODUCT | PLASMA THAWED | | [facility] | | | DESCRIPTION | | | DEPARTMENT | | | | | | OF | | | | | | PATHOLOGY | | + + + + + + | PRODUCT | [id number] | | [facility] | | | UNIT # | | | DEPARTMENT | | | | | | OF | | | | | | PATHOLOGY | | + + + + + + | UNIT ABO | A | | [facility] | | | | | | DEPARTMENT | | | | | | OF | | | | | | PATHOLOGY | | + + + + + + | UNIT RH | POS | | [facility] | | | | | | DEPARTMENT | | | | | | OF | | | | | | PATHOLOGY | | + + + + + + | STATUS OF | Returned to Blood Bank | | [facility] | | | UNIT | | | DEPARTMENT | | | | | | OF | | | | | | PATHOLOGY | | + + + + + + | BLOOD | [id number] | | [facility] | | | PRODUCT | | | DEPARTMENT | | | CODE | | | OF | | | | | | PATHOLOGY | | + + + + + + + + | Specimen | + + | | + + + + + + + | Performing | Address | City/State/Zipcode | Phone Number | | Organization | | | | + + + + + | [facility] DEPARTMENT OF | [address] | [place] [address] | | | PATHOLOGY | [address] | | | + + + + + PRODUCT - FRESH FROZEN PLASMA (04/23/2014 11:36 AM PST) + + + + + + | Component | Value | Ref Range | Performed | Pathologist | | | | | At | Signature | + + + + + + | PRODUCT | PLASMA THAWED | | [facility] | | | DESCRIPTION | | | DEPARTMENT | | | | | | OF | | | | | | PATHOLOGY | | + + + + + + | PRODUCT | [id number] | | [facility] | | | UNIT # | | | DEPARTMENT | | | | | | OF | | | | | | PATHOLOGY | | + + + + + + | UNIT ABO | A | | [facility] | | | | | | DEPARTMENT | | | | | | OF | | | | | | PATHOLOGY | | + + + + + + | UNIT RH | POS | | [facility] | | | | | | DEPARTMENT | | | | | | OF | | | | | | PATHOLOGY | | + + + + + + | STATUS OF | Returned to Blood Bank | | [facility] | | | UNIT | | | DEPARTMENT | | | | | | OF | | | | | | PATHOLOGY | | + + + + + + | BLOOD | [id number] | | [facility] | | | PRODUCT | | | DEPARTMENT | | | CODE | | | OF | | | | | | PATHOLOGY | | + + + + + + + + | Specimen | + + | | + + + + + + + | Performing | Address | City/State/Zipcode | Phone Number | | Organization | | | | + + + + + | [facility] DEPARTMENT OF | [address] | [place] [address] | | | PATHOLOGY | [address] | | | + + + + + PRODUCT - FRESH FROZEN PLASMA (04/23/2014 11:36 AM PST) + + + + + + | Component | Value | Ref Range | Performed | Pathologist | | | | | At | Signature | + + + + + + | PRODUCT | PLASMA THAWED | | [facility] | | | DESCRIPTION | | | DEPARTMENT | | | | | | OF | | | | | | PATHOLOGY | | + + + + + + | PRODUCT | [id number] | | [facility] | | | UNIT # | | | DEPARTMENT | | | | | | OF | | | | | | PATHOLOGY | | + + + + + + | UNIT ABO | A | | [facility] | | | | | | DEPARTMENT | | | | | | OF | | | | | | PATHOLOGY | | + + + + + + | UNIT RH | POS | | [facility] | | | | | | DEPARTMENT | | | | | | OF | | | | | | PATHOLOGY | | + + + + + + | STATUS OF | Returned to Blood Bank | | [facility] | | | UNIT | | | DEPARTMENT | | | | | | OF | | | | | | PATHOLOGY | | + + + + + + | BLOOD | [id number] | | [facility] | | | PRODUCT | | | DEPARTMENT | | | CODE | | | OF | | | | | | PATHOLOGY | | + + + + + + + + | Specimen | + + | | + + + + + + + | Performing | Address | City/State/Zipcode | Phone Number | | Organization | | | | + + + + + | [facility] | [address] | [place] [address] | | | PATHOLOGY | [address] | | | + + + + + PRODUCT - PLATELET PHERESIS LEUKOREDUCED (04/23/2014 11:24 AM PST) + + + + + + | Component | Value | Ref Range | Performed | Pathologist | | | | | At | Signature | + + + + + + | PRODUCT | PLATELETS PHERESIS, | | [facility] | | | DESCRIPTION | LEUKOCYTE REDUCED, | | DEPARTMENT | | | | IRRADIATED | | OF | | | | | | PATHOLOGY | | + + + + + + | PRODUCT | [id number] | | [facility] | | | UNIT # | | | DEPARTMENT | | | | | | OF | | | | | | PATHOLOGY | | + + + + + + | UNIT ABO | O | | [facility] | | | | | | DEPARTMENT | | | | | | OF | | | | | | PATHOLOGY | | + + + + + + | UNIT RH | POS | | [facility] | | | | | | DEPARTMENT | | | | | | OF | | | | | | PATHOLOGY | | + + + + + + | STATUS OF | Returned to Blood Bank | | [facility] | | | UNIT | | | DEPARTMENT | | | | | | OF | | | | | | PATHOLOGY | | + + + + + + | BLOOD | [id number] | | [facility] | | | PRODUCT | | | DEPARTMENT | | | CODE | | | OF | | | | | | PATHOLOGY | | + + + + + + + + | Specimen | + + | | + + + + + + + | Performing | Address | City/State/Zipcode | Phone Number | | Organization | | | | + + + + + | [facility] DEPARTMENT OF | [address] | [place] [address] | | | PATHOLOGY | [address] | | | + + + + + PRODUCT - PLATELET PHERESIS LEUKOREDUCED (04/23/2014 11:24 AM PST) + + + + + + | Component | Value | Ref Range | Performed | Pathologist | | | | | At | Signature | + + + + + + | PRODUCT | PLATELETS PHERESIS, | | [facility] | | | DESCRIPTION | LEUKOCYTE REDUCED, | | DEPARTMENT | | | | IRRADIATED | | OF | | | | | | PATHOLOGY | | + + + + + + | PRODUCT | [id number] | | [facility] | | | UNIT # | | | DEPARTMENT | | | | | | OF | | | | | | PATHOLOGY | | + + + + + + | UNIT ABO | O | | [facility] | | | | | | DEPARTMENT | | | | | | OF | | | | | | PATHOLOGY | | + + + + + + | UNIT RH | POS | | [facility] | | | | | | DEPARTMENT | | | | | | OF | | | | | | PATHOLOGY | | + + + + + + | STATUS OF | Returned to Blood Bank | | [facility] | | | UNIT | | | DEPARTMENT | | | | | | OF | | | | | | PATHOLOGY | | + + + + + + | BLOOD | [id number] | | [facility] | | | PRODUCT | | | DEPARTMENT | | | CODE | | | OF | | | | | | PATHOLOGY | | + + + + + + + + | Specimen | + + | | + + + + + + + | Performing | Address | City/State/Zipcode | Phone Number | | Organization | | | | + + + + + | [facility] | [address] | [place] [address] | | | PATHOLOGY | [address] | | | + + + + + PRODUCT- RED CELLS LEUKOREDUCED (04/23/2014 11:21 AM PST) + + + + + + | Component | Value | Ref Range | Performed | Pathologist | | | | | At | Signature | + + + + + + | PRODUCT | -1 RED BLOOD CELL | | [facility] | | | DESCRIPTION | ADENINE-SALINE ADDED | | DEPARTMENT | | | | LEUKOCYTES REDUCED | | OF | | | | | | PATHOLOGY | | + + + + + + | PRODUCT | [id number] | | [facility] | | | UNIT # | | | DEPARTMENT | | | | | | OF | | | | | | PATHOLOGY | | + + + + + + | UNIT ABO | O | | [facility] | | | | | | DEPARTMENT | | | | | | OF | | | | | | PATHOLOGY | | + + + + + + | UNIT RH | POS | | [facility] | | | | | | DEPARTMENT | | | | | | OF | | | | | | PATHOLOGY | | + + + + + + | STATUS OF | Returned to Blood Bank | | [facility] | | | UNIT | | | DEPARTMENT | | | | | | OF | | | | | | PATHOLOGY | | + + + + + + | BLOOD | [id number] | | [facility] | | | PRODUCT | | | DEPARTMENT | | | CODE | | | OF | | | | | | PATHOLOGY | | + + + + + + + + | Specimen | + + | | + + + + + + + | Performing | Address | City/State/Zipcode | Phone Number | | Organization | | | | + + + + + | [facility] DEPARTMENT | [address] | [place] [address] | | | PATHOLOGY | [address] | | | + + + + + PRODUCT- RED CELLS LEUKOREDUCED (04/23/2014 11:21 AM PST) + + + + + + | Component | Value | Ref Range | Performed | Pathologist | | | | | At | Signature | + + + + + + | PRODUCT | -1 RED BLOOD CELL | | [facility] | | | DESCRIPTION | ADENINE-SALINE ADDED | | DEPARTMENT | | | | LEUKOCYTES REDUCED | | OF | | | | | | PATHOLOGY | | + + + + + + | PRODUCT | [id number] | | [facility] | | | UNIT # | | | DEPARTMENT | | | | | | OF | | | | | | PATHOLOGY | | + + + + + + | UNIT ABO | O | | [facility] | | | | | | DEPARTMENT | | | | | | OF | | | | | | PATHOLOGY | | + + + + + + | UNIT RH | POS | | [facility] | | | | | | DEPARTMENT | | | | | | OF | | | | | | PATHOLOGY | | + + + + + + | STATUS OF | Returned to Blood Bank | | [facility] | | | UNIT | | | DEPARTMENT | | | | | | OF | | | | | | PATHOLOGY | | + + + + + + | BLOOD | [id number] | | [facility] | | | PRODUCT | | | DEPARTMENT | | | CODE | | | OF | | | | | | PATHOLOGY | | + + + + + + + + | Specimen | + + | | + + + + + + + | Performing | Address | City/State/Zipcode | Phone Number | | Organization | | | | + + + + + | [facility] DEPARTMENT OF | [address] | [place] [address] | | | PATHOLOGY | [address] | | | + + + + + PRODUCT- RED CELLS LEUKOREDUCED (04/23/2014 11:21 AM PST) + + + + + + | Component | Value | Ref Range | Performed | Pathologist | | | | | At | Signature | + + + + + + | PRODUCT | -1 RED BLOOD CELL | | [facility] | | | DESCRIPTION | ADENINE-SALINE ADDED | | DEPARTMENT | | | | LEUKOCYTES REDUCED | | OF | | | | | | PATHOLOGY | | + + + + + + | PRODUCT | [id number] | | [facility] | | | UNIT # | | | DEPARTMENT | | | | | | OF | | | | | | PATHOLOGY | | + + + + + + | UNIT ABO | O | | [facility] | | | | | | DEPARTMENT | | | | | | OF | | | | | | PATHOLOGY | | + + + + + + | UNIT RH | POS | | [facility] | | | | | | DEPARTMENT | | | | | | OF | | | | | | PATHOLOGY | | + + + + + + | STATUS OF | Returned to Blood Bank | | [facility] | | | UNIT | | | DEPARTMENT | | | | | | OF | | | | | | PATHOLOGY | | + + + + + + | BLOOD | [id number] | | [facility] | | | PRODUCT | | | DEPARTMENT | | | CODE | | | OF | | | | | | PATHOLOGY | | + + + + + + + + | Specimen | + + | | + + + + + + + | Performing | Address | City/State/Zipcode | Phone Number | | Organization | | | | + + + + + | [facility] DEPARTMENT | [address] | [place] [address] | | | PATHOLOGY | [address] | | | + + + + + PRODUCT- RED CELLS LEUKOREDUCED (04/23/2014 11:21 AM PST) + + + + + + | Component | Value | Ref Range | Performed | Pathologist | | | | | At | Signature | + + + + + + | PRODUCT | -1 RED BLOOD CELL | | [facility] | | | DESCRIPTION | ADENINE-SALINE ADDED | | DEPARTMENT | | | | LEUKOCYTES REDUCED | | OF | | | | | | PATHOLOGY | | + + + + + + | PRODUCT | [id number] | | [facility] | | | UNIT # | | | DEPARTMENT | | | | | | OF | | | | | | PATHOLOGY | | + + + + + + | UNIT ABO | O | | [facility] | | | | | | DEPARTMENT | | | | | | OF | | | | | | PATHOLOGY | | + + + + + + | UNIT RH | POS | | [facility] | | | | | | DEPARTMENT | | | | | | OF | | | | | | PATHOLOGY | | + + + + + + | STATUS OF | Returned to Blood Bank | | [facility] | | | UNIT | | | DEPARTMENT | | | | | | OF | | | | | | PATHOLOGY | | + + + + + + | BLOOD | [id number] | | [facility] | | | PRODUCT | | | DEPARTMENT | | | CODE | | | OF | | | | | | PATHOLOGY | | + + + + + + + + | Specimen | + + | | + + + + + + + | Performing | Address | City/State/Zipcode | Phone Number | | Organization | | | | + + + + + | [facility] DEPARTMENT OF | [address] | [place] [address] | | | PATHOLOGY | [address] | | | + + + + + PRODUCT- RED CELLS LEUKOREDUCED (04/23/2014 11:21 AM PST) + + + + + + | Component | Value | Ref Range | Performed | Pathologist | | | | | At | Signature | + + + + + + | PRODUCT | -1 RED BLOOD CELL | | [facility] | | | DESCRIPTION | ADENINE-SALINE ADDED | | DEPARTMENT | | | | LEUKOCYTES REDUCED | | OF | | | | | | PATHOLOGY | | + + + + + + | PRODUCT | [id number] | | [facility] | | | UNIT # | | | DEPARTMENT | | | | | | OF | | | | | | PATHOLOGY | | + + + + + + | UNIT ABO | O | | [facility] | | | | | | DEPARTMENT | | | | | | OF | | | | | | PATHOLOGY | | + + + + + + | UNIT RH | POS | | [facility] | | | | | | DEPARTMENT | | | | | | OF | | | | | | PATHOLOGY | | + + + + + + | STATUS OF | Returned to Blood Bank | | [facility] | | | UNIT | | | DEPARTMENT | | | | | | OF | | | | | | PATHOLOGY | | + + + + + + | BLOOD | [id number] | | [facility] | | | PRODUCT | | | DEPARTMENT | | | CODE | | | OF | | | | | | PATHOLOGY | | + + + + + + + + | Specimen | + + | | + + + + + + + | Performing | Address | City/State/Zipcode | Phone Number | | Organization | | | | + + + + + | [facility] DEPARTMENT OF | [address] | [place] [address] | | | PATHOLOGY | [address] | | | + + + + + PRODUCT- RED CELLS LEUKOREDUCED (04/23/2014 11:21 AM PST) + + + + + + | Component | Value | Ref Range | Performed | Pathologist | | | | | At | Signature | + + + + + + | PRODUCT | -1 RED BLOOD CELL | | [facility] | | | DESCRIPTION | ADENINE-SALINE ADDED | | DEPARTMENT | | | | LEUKOCYTES REDUCED | | OF | | | | | | PATHOLOGY | | + + + + + + | PRODUCT | [id number] | | [facility] | | | UNIT # | | | DEPARTMENT | | | | | | OF | | | | | | PATHOLOGY | | + + + + + + | UNIT ABO | O | | [facility] | | | | | | DEPARTMENT | | | | | | OF | | | | | | PATHOLOGY | | + + + + + + | UNIT RH | POS | | [facility] | | | | | | DEPARTMENT | | | | | | OF | | | | | | PATHOLOGY | | + + + + + + | STATUS OF | Returned to Blood Bank | | [facility] | | | UNIT | | | DEPARTMENT | | | | | | OF | | | | | | PATHOLOGY | | + + + + + + | BLOOD | [id number] | | [facility] | | | PRODUCT | | | DEPARTMENT | | | CODE | | | OF | | | | | | PATHOLOGY | | + + + + + + + + | Specimen | + + | | + + + + + + + | Performing | Address | City/State/Zipcode | Phone Number | | Organization | | | | + + + + + | [facility] DEPARTMENT OF | [address] | [place] [address] | | | PATHOLOGY | [address] | | | + + + + + BLOOD GASES, ARTERIAL - LAB (04/23/2014 11:10 AM PST) + + + + + + | Component | Value | Ref Range | Performed | Pathologist | | | | | At | Signature | + + + + + + | PAT TEMP | Comment: ng | Degree C | [facility] | | | ARTERIAL | | | LABORATORY | | | | | | SERVICES, | | | | | | CORE | | + + + + + + | FIO2 | Comment: ng | | [facility] | | | ARTERIAL | | | LABORATORY | | | | | | SERVICES, | | | | | | CORE | | + + + + + + | PH ARTERIAL | 7.41 | 7.37 - 7.44 | [facility] | | | | | | LABORATORY | | | | | | SERVICES, | | | | | | CORE | | + + + + + + | PCO2 | 42 | 32 - 43 mmHg | [facility] | | | ARTERIAL | | | LABORATORY | | | | | | SERVICES, | | | | | | CORE | | + + + + + + | PO2 | 64 (L) | 72 - 104 mmHg | [facility] | | | ARTERIAL | | | LABORATORY | | | | | | SERVICES, | | | | | | CORE | | + + + + + + | HCO3 | 26 | 21 - 28 mmol/L | [facility] | | | ARTERIAL | | | LABORATORY | | | | | | SERVICES, | | | | | | CORE | | + + + + + + | TOTAL CO2 | 28 | 22 - 28 mmol/L | [facility] | | | ARTERIAL | | | LABORATORY | | | | | | SERVICES, | | | | | | CORE | | + + + + + + | BASE EXCESS | 2.0 | | [facility] | | | ARTERIAL | | | LABORATORY | | | | | | SERVICES, | | | | | | CORE | | + + + + + + | O2 SAT, | 93.6 | 92.0 - 98.0 | [facility] | | | ARTERIAL | | | LABORATORY | | | | | | SERVICES, | | | | | | CORE | | + + + + + + | PAO2/FIO2 | | >300 mmHg | [facility] | | | RATIO | | | LABORATORY | | | | | | SERVICES, | | | | | | CORE | | + + + + + + + + | Specimen | + + | Blood - Blood | + + + + + + + | Performing | Address | City/State/Zipcode | Phone Number | | Organization | | | | + + + + + | [facility] | [address] | [place] [address] | | | SERVICES, CORE | [address] | | | + + + + + CBC (HEMOGRAM) ONLY (04/23/2014 11:09 AM PST) + + + + + + | Component | Value | Ref Range | Performed | Pathologist | | | | | At | Signature | + + + + + + | WHITE CELL | 18.42 (H) | 4.40 - 11.00 | [facility] | | | COUNT | | K/cu mm | LABORATORY | | | | | | SERVICES, | | | | | | CORE | | + + + + + + | RED CELL | 4.93 | 4.00 - 5.20 | [facility] | | | COUNT | | M/cu mm | LABORATORY | | | | | | SERVICES, | | | | | | CORE | | + + + + + + | HEMOGLOBIN | 14.2 | 12.0 - 16.0 | [facility] | | | | | g/dL | LABORATORY | | | | | | SERVICES, | | | | | | CORE | | + + + + + + | HEMATOCRIT | 41.4 | 36.0 - 46.0 % | [facility] | | | | | | LABORATORY | | | | | | SERVICES, | | | | | | CORE | | + + + + + + | MCV | 84.0 | 80.0 - 96.0 fL | [facility] | | | | | | LABORATORY | | | | | | SERVICES, | | | | | | CORE | | + + + + + + | MCHC | 34.3 | 33.0 - 35.5 | [facility] | | | | | g/dL | LABORATORY | | | | | | SERVICES, | | | | | | CORE | | + + + + + + | RDW SD | 43.9 | 35.1 - 46.3 fL | [facility] | | | | | | LABORATORY | | | | | | SERVICES, | | | | | | CORE | | + + + + + + | PLATELET | 104 (L) | 150 - 400 K/cu | [facility] | | | COUNT | | mm | LABORATORY | | | | | | SERVICES, | | | | | | CORE | | + + + + + + | MPV | 9.9 | 9.7 - 12.3 fL | [facility] | | | | | | LABORATORY | | | | | | SERVICES, | | | | | | CORE | | + + + + + + | NRBC% | 3.3 (H) | 0.0 - 0.3 % | [facility] | | | | | | LABORATORY | | | | | | SERVICES, | | | | | | CORE | | + + + + + + | NRBC# | 0.60 (H) | 0.00 - 0.02 | [facility] | | | | | K/cu mm | LABORATORY | | | | | | SERVICES, | | | | | | CORE | | + + + + + + + + | Specimen | + + | Blood - Blood | + + + + + | Narrative | Performed At | + + + | Must be ordered if Coagulopathy Panel is ordered | [facility] | | | LABORATORY | | | SERVICES, CORE | + + + + + + + + | Performing | Address | City/State/Zipcode | Phone Number | | Organization | | | | + + + + + | [facility] | [address] | [place] [address] | | | SERVICES, CORE | [address] | | | + + + + + COAGULOPATHY PANEL (INR,APTT,FIBRINOGEN) (04/23/2014 11:09 AM PST) + + + + + + | Component | Value | Ref Range | Performed | Pathologist | | | | | At | Signature | + + + + + + | INR | 1.41 (H) | 0.90 - 1.20 INR | [facility] | | | | | | LABORATORY | | | | | | SERVICES, | | | | | | CORE | | + + + + + + | APTT | 34.9 | 26.0 - 36.0 | [facility] | | | | | seconds | LABORATORY | | | | | | SERVICES, | | | | | | CORE | | + + + + + + | FIBRINOGEN | 249 | 200 - 450 mg/dL | [facility] | | | LEVEL | | | LABORATORY | | | | | | SERVICES, | | | | | | CORE | | + + + + + + + + | Specimen | + + | Blood - Blood | + + + + + | Narrative | Performed At | + + + | Must order with concurrent CBC INR Therapeutic ranges for full | [facility] | | anticoagulation: INR for Venous Thromboembolism | LABORATORY | | (2.0 - 3.0) INR INR for most patients with mech. valves (2.5 | [facility], CORE | | - 3.5) INR APTT Therapeutic Range: | | | (75 - 120) sec Heparin levels of 0.35 - 0.7 U/mL | | + + + + + + + + | Performing | Address | City/State/Zipcode | Phone Number | | Organization | | | | + + + + + | [facility] | [address] | [place] [address] | | | JANELL SHARP | [address] | | | + + + + + RENAL FUNCTION SET (NA,K,CL,CO2,BUN,CREAT,GLUC,CA,PHOS,ALB ) (04/23/2014 11:09 AM PST) + + + + + + | Component | Value | Ref Range | Performed | Pathologist | | | | | At | Signature | + + + + + + | GLUCOSE, | 79 | 60 - 99 mg/dL | [facility] | | | PLASMA | | | LABORATORY | | | (LAB) | | | SERVICES, | | | | | | CORE | | + + + + + + | BUN, PLASMA | 34 (H) | 6 - 20 mg/dL | [facility] | | | (LAB) | | | LABORATORY | | | | | | SERVICES, | | | | | | CORE | | + + + + + + | CREATININE | 1.18 (H) | 0.60 - 1.10 | [facility] | | | PLASMA | | mg/dL | LABORATORY | | | (LAB) | | | SERVICES, | | | | | | CORE | | + + + + + + | EGFR | 57 (L) | >60 mL/min | [facility] | | | - | | | LABORATORY | | | KYRGYZ | | | SERVICES, | | | | | | CORE | | + + + + + + | EGFR NON | 47 (L) | >60 mL/min | [facility] | | | -LUIS | | | LABORATORY | | | RICAN | | | SERVICES, | | | | | | CORE | | + + + + + + | SODIUM, | 153 (H) | 136 - 145 | [facility] | | | PLASMA | | mmol/L | LABORATORY | | | (LAB) | | | SERVICES, | | | | | | CORE | | + + + + + + | POTASSIUM, | 3.6 | 3.4 - 5.0 | [facility] | | | PLASMA | | mmol/L | LABORATORY | | | (LAB) | | | SERVICES, | | | | | | CORE | | + + + + + + | CHLORIDE, | 116 (H) | 97 - 108 mmol/L | [facility] | | | PLASMA | | | LABORATORY | | | (LAB) | | | SERVICES, | | | | | | CORE | | + + + + + + | TOTAL CO2, | 28 | 21 - 32 mmol/L | [facility] | | | PLASMA | | | LABORATORY | | | (LAB) | | | SERVICES, | | | | | | CORE | | + + + + + + | CALCIUM, | 8.0 (L) | 8.6 - 10.2 | [facility] | | | PLASMA | | mg/dL | LABORATORY | | | (LAB) | | | SERVICES, | | | | | | CORE | | + + + + + + | ALBUMIN, | 2.1 (L) | 3.5 - 4.7 g/dL | [facility] | | | PLASMA | | | LABORATORY | | | (LAB) | | | SERVICES, | | | | | | CORE | | + + + + + + | PHOSPHORUS, | 5.8 (H) | 2.4 - 4.7 mg/dL | [facility] | | | PLASMA | | | LABORATORY | | | (LAB) | | | SERVICES, | | | | | | CORE | | + + + + + + | POTASSIUM | No Hemo | | [facility] | | | CMNT | | | LABORATORY | | | | | | SERVICES, | | | | | | CORE | | + + + + + + | ANION GAP | 9 | mmol/L | [facility] | | | | | | LABORATORY | | | | | | SERVICES, | | | | | | CORE | | + + + + + + | ANION | 13 (H) | 4 - 11 mmol/L | [facility] | | | GAP(ALB | | | LABORATORY | | | CORRECTED) | | | SERVICES, | | | | | | CORE | | + + + + + + + + | Specimen | + + | Blood - Blood | + + + + + | Narrative | Performed At | + + + | GFR is estimated using the MDRD equation recommended by the | [facility] | | National Kidney Disease Education Program. Estimated GFR | LABORATORY | | Interpretive Information: <60 mL/min/1.73 sq m | SERVICES, CORE | | Chronic Kidney Disease <15 mL/min/1.73 sq m | | | Kidney Failure Estimated GFR greater that 60 mL/min/1.73 sq m is of | | | limited clinical value. The MDRD equation is not valid in the | | | following situations: - Patients under 18 years of age - Severe | | | malnutrition or obesity - Vegetarian diet - Rapidly changing kidney | | | function | | + + + + + + + + | Performing | Address | City/State/Zipcode | Phone Number | | Organization | | | | + + + + + | [facility] | [address] | [place] [address] | | | SERVICES, CORE | [address] | | | + + + + + TELMA FARAH ONLY (04/23/2014 11:09 AM PST) + + + + + + | Component | Value | Ref Range | Performed | Pathologist | | | | | At | Signature | + + + + + + | COLOR(UR) | Yellow | | [facility] | | | | | | LABORATORY | | | | | | SERVICES, | | | | | | CORE | | + + + + + + | APPEARANCE | Mod. Cloudy | | [facility] | | | | | | LABORATORY | | | | | | SERVICES, | | | | | | CORE | | + + + + + + | GLUCOSE(UR) | Negative | Negative, 50.0 | [facility] | | | | | mg/dL | LABORATORY | | | | | | SERVICES, | | | | | | CORE | | + + + + + + | PROTEIN(LAB | Negative | Negative, 30.0 | [facility] | | | ) | | mg/dL | LABORATORY | | | | | | SERVICES, | | | | | | CORE | | + + + + + + | BILIRUBIN | Negative | Negative | [facility] | | | | | | LABORATORY | | | | | | SERVICES, | | | | | | CORE | | + + + + + + | UROBILINOGE | <2.0 | <2.0 mg/dL | [facility] | | | N | | | LABORATORY | | | | | | SERVICES, | | | | | | CORE | | + + + + + + | PH(UR) | 5.0 | 5.0 - 8.0 | [facility] | | | | | | LABORATORY | | | | | | SERVICES, | | | | | | CORE | | + + + + + + | BLOOD | Moderate (A) | Negative | [facility] | | | | | | LABORATORY | | | | | | SERVICES, | | | | | | CORE | | + + + + + + | KETONES | Negative | Negative mg/dL | [facility] | | | | | | LABORATORY | | | | | | SERVICES, | | | | | | CORE | | + + + + + + | NITRITES | Negative | Negative | [facility] | | | | | | LABORATORY | | | | | | SERVICES, | | | | | | CORE | | + + + + + + | LEUKOCYTE | Negative | Negative | [facility] | | | ESTERASE | | | LABORATORY | | | | | | SERVICES, | | | | | | CORE | | + + + + + + | SPECIFIC | 1.016 | 1.005 - 1.030 | [facility] | | | GRAVITY | | | LABORATORY | | | | | | SERVICES, | | | | | | CORE | | + + + + + + + + | Specimen | + + | Urine - Urine | + + + + + + + | Performing | Address | City/State/Zipcode | Phone Number | | Organization | | | | + + + + + | [facility] | [address] | [place] [address] | | | SERVICES, CORE | [address] | | | + + + + + URINE, MICROSCOPIC EXAM (04/23/2014 11:09 AM PST) + +-------+ + + + | Component | Value | Ref Range | Performed | Pathologist | | | | | At | Signature | + +-------+ + + + | RED CELLS | 1 | 0 - 3 /hpf | [facility] | | | | | | LABORATORY | | | | | | SERVICES, | | | | | | CORE | | + +-------+ + + + | WHITE CELLS | <1 | 0 - 5 /hpf | [facility] | | | | | | LABORATORY | | | | | | SERVICES, | | | | | | CORE | | + +-------+ + + + | BACTERIA | None | None /hpf | [facility] | | | | | | LABORATORY | | | | | | SERVICES, | | | | | | CORE | | + +-------+ + + + | YEAST (LAB) | None | None /hpf | [facility] | | | | | | LABORATORY | | | | | | SERVICES, | | | | | | CORE | | + +-------+ + + + | SQUAMOUS | None | None /hpf | [facility] | | | EPITHELIAL | | | LABORATORY | | | | | | SERVICES, | | | | | | CORE | | + +-------+ + + + | MUCOUS | None | None /hpf | [facility] | | | | | | LABORATORY | | | | | | SERVICES, | | | | | | CORE | | + +-------+ + + + | TRICHOMONAS | None | None /hpf | [facility] | | | | | | LABORATORY | | | | | | SERVICES, | | | | | | CORE | | + +-------+ + + + | NON-SQUAMOU | None | None /hpf | [facility] | | | S EPITH | | | LABORATORY | | | | | | SERVICES, | | | | | | CORE | | + +-------+ + + + | HYALINE | 0 | 0 - 2 /lpf | [facility] | | | CASTS | | | LABORATORY | | | | | | SERVICES, | | | | | | CORE | | + +-------+ + + + | GRANULAR | 0 | 0 - 2 /lpf | [facility] | | | CASTS | | | LABORATORY | | | | | | SERVICES, | | | | | | CORE | | + +-------+ + + + | CELLULAR | 0 | <=0 /lpf | [facility] | | | CASTS | | | LABORATORY | | | | | | SERVICES, | | | | | | CORE | | + +-------+ + + + | TRIPLE P04 | None | None /hpf | [facility] | | | CRYSTALS | | | LABORATORY | | | | | | SERVICES, | | | | | | CORE | | + +-------+ + + + | CALCIUM | None | None /hpf | [facility] | | | OXALATE | | | LABORATORY | | | VIJAY | | | SERVICES, | | | | | | CORE | | + +-------+ + + + | URIC ACID | None | None /hpf | [facility] | | | CRYSTALS | | | LABORATORY | | | | | | SERVICES, | | | | | | CORE | | + +-------+ + + + | AMORPHOUS | None | None /hpf | [facility] | | | CRYSTALS | | | LABORATORY | | | | | | SERVICES, | | | | | | CORE | | + +-------+ + + + + + | Specimen | + + | Urine - Urine | + + + + + + + | Performing | Address | City/State/Zipcode | Phone Number | | Organization | | | | + + + + + | [facility] | [address] | [place] [address] | | | SERVICES, CORE | [address] | | | + + + + + URINE SCREEN FOR CULTURE (04/23/2014 11:09 AM PST) + + + + + + | Component | Value | Ref Range | Performed | Pathologist | | | | | At | Signature | + + + + + + | URINE | Negative | Negative | [facility] | | | SCREEN FOR | | | LABORATORY | | | CULTURE | | | SERVICES, | | | | | | CORE | | + + + + + + + + | Specimen | + + | Urine - Urine | + + + + + | Narrative | Performed At | + + + | Culture Screen Negative. Culture not indicated. | [facility] | | | LABORATORY | | | SERVICES, CORE | + + + + + + + + | Performing | Address | City/State/Zipcode | Phone Number | | Organization | | | | + + + + + | [facility] | [address] | [place] [address] | | | ARON, JANELL | [address] | | | + + + + + CAPILLARY BLOOD GLUCOSE (NO CHG), POC (04/23/2014 11:02 AM PST) + +-------+ + + + | Component | Value | Ref Range | Performed | Pathologist | | | | | At | Signature | + +-------+ + + + | BLOOD | 89 | 60 - 99 mg/dL | [facility] - | | | GLUCOSE, | | | [facility] | | | POC | | | [facility] | | | | | | OF CARE | | | | | | TESTS | | + +-------+ + + + + + | Specimen | + + | | + + + + + + + | Performing | Address | City/State/Zipcode | Phone Number | | Organization | | | | + + + + + | [facility] | [address] | [place], [place] | | | [facility] | [address] | [address] | | | TESTS | | | | + + + + + ANTIBODY SCREEN (04/23/2014 10:59 AM PST) + + + + + + | Component | Value | Ref Range | Performed | Pathologist | | | | | At | Signature | + + + + + + | Antibody | Negative | | [facility] | | | Screen | | | LABORATORY | | | | | | SERVICES, | | | | | | TRANSFUSION | | | | | | MEDICINE | | + + + + + + + + | Specimen | + + | Blood - Blood | + + + + + + + | Performing | Address | City/State/Zipcode | Phone Number | | Organization | | | | + + + + + | [facility] | [address] | [place] [address] | | | SERVICES, | [address] | | | | TRANSFUSION MEDICINE | | | | + + + + + ABO & RH TYPE (04/23/2014 10:59 AM PST) + + + + + + | Component | Value | Ref Range | Performed | Pathologist | | | | | At | Signature | + + + + + + | ABO Group | O | | [facility] | | | | | | LABORATORY | | | | | | SERVICES, | | | | | | TRANSFUSION | | | | | | MEDICINE | | + + + + + + | Rh Type | Negative | | [facility] | | | | | | LABORATORY | | | | | | SERVICES, | | | | | | TRANSFUSION | | | | | | MEDICINE | | + + + + + + + + | Specimen | + + | Blood - Blood | + + + + + + + | Performing | Address | City/State/Zipcode | Phone Number | | Organization | | | | + + + + + | [facility] | [address] | [place] [address] | | | SERVICES, | [address] | | | | TRANSFUSION MEDICINE | | | | + + + + + PRODUCT - FRESH FROZEN PLASMA (04/23/2014 10:54 AM PST) + + + + + + | Component | Value | Ref Range | Performed | Pathologist | | | | | At | Signature | + + + + + + | PRODUCT | PLASMA THAWED | | [facility] | | | DESCRIPTION | | | DEPARTMENT | | | | | | OF | | | | | | PATHOLOGY | | + + + + + + | PRODUCT | [id number] | | [facility] | | | UNIT # | | | DEPARTMENT | | | | | | OF | | | | | | PATHOLOGY | | + + + + + + | UNIT ABO | A | | [facility] | | | | | | DEPARTMENT | | | | | | OF | | | | | | PATHOLOGY | | + + + + + + | UNIT RH | POS | | [facility] | | | | | | DEPARTMENT | | | | | | OF | | | | | | PATHOLOGY | | + + + + + + | STATUS OF | Returned to Blood Bank | | [facility] | | | UNIT | | | DEPARTMENT | | | | | | OF | | | | | | PATHOLOGY | | + + + + + + | BLOOD | [id number] | | [facility] | | | PRODUCT | | | DEPARTMENT | | | CODE | | | OF | | | | | | PATHOLOGY | | + + + + + + + + | Specimen | + + | | + + + + + + + | Performing | Address | City/State/Zipcode | Phone Number | | Organization | | | | + + + + + | [facility] | [address] | [place] [address] | | | PATHOLOGY | [address] | | | + + + + + PRODUCT - FRESH FROZEN PLASMA (04/23/2014 10:54 AM PST) + + + + + + | Component | Value | Ref Range | Performed | Pathologist | | | | | At | Signature | + + + + + + | PRODUCT | PLASMA THAWED | | [facility] | | | DESCRIPTION | | | DEPARTMENT | | | | | | OF | | | | | | PATHOLOGY | | + + + + + + | PRODUCT | [id number] | | [facility] | | | UNIT # | | | DEPARTMENT | | | | | | OF | | | | | | PATHOLOGY | | + + + + + + | UNIT ABO | B | | [facility] | | | | | | DEPARTMENT | | | | | | OF | | | | | | PATHOLOGY | | + + + + + + | UNIT RH | NEG | | [facility] | | | | | | DEPARTMENT | | | | | | OF | | | | | | PATHOLOGY | | + + + + + + | STATUS OF | Returned to Blood Bank | | [facility] | | | UNIT | | | DEPARTMENT | | | | | | OF | | | | | | PATHOLOGY | | + + + + + + | BLOOD | [id number] | | [facility] | | | PRODUCT | | | DEPARTMENT | | | CODE | | | OF | | | | | | PATHOLOGY | | + + + + + + + + | Specimen | + + | | + + + + + + + | Performing | Address | City/State/Zipcode | Phone Number | | Organization | | | | + + + + + | [facility] | [address] | [place] [address] | | | PATHOLOGY | [address] | | | + + + + + PRODUCT - FRESH FROZEN PLASMA (04/23/2014 10:54 AM PST) + + + + + + | Component | Value | Ref Range | Performed | Pathologist | | | | | At | Signature | + + + + + + | PRODUCT | PLASMA THAWED | | [facility] | | | DESCRIPTION | | | DEPARTMENT | | | | | | OF | | | | | | PATHOLOGY | | + + + + + + | PRODUCT | [id number] | | [facility] | | | UNIT # | | | DEPARTMENT | | | | | | OF | | | | | | PATHOLOGY | | + + + + + + | UNIT ABO | B | | [facility] | | | | | | DEPARTMENT | | | | | | OF | | | | | | PATHOLOGY | | + + + + + + | UNIT RH | NEG | | [facility] | | | | | | DEPARTMENT | | | | | | OF | | | | | | PATHOLOGY | | + + + + + + | STATUS OF | Returned to Blood Bank | | [facility] | | | UNIT | | | DEPARTMENT | | | | | | OF | | | | | | PATHOLOGY | | + + + + + + | BLOOD | [id number] | | [facility] | | | PRODUCT | | | DEPARTMENT | | | CODE | | | OF | | | | | | PATHOLOGY | | + + + + + + + + | Specimen | + + | | + + + + + + + | Performing | Address | City/State/Zipcode | Phone Number | | Organization | | | | + + + + + | [facility] | [address] | [place] [address] | | | PATHOLOGY | [address] | | | + + + + + PRODUCT - FRESH FROZEN PLASMA (04/23/2014 10:54 AM PST) + + + + + + | Component | Value | Ref Range | Performed | Pathologist | | | | | At | Signature | + + + + + + | PRODUCT | PLASMA THAWED | | [facility] | | | DESCRIPTION | | | DEPARTMENT | | | | | | OF | | | | | | PATHOLOGY | | + + + + + + | PRODUCT | [id number] | | [facility] | | | UNIT # | | | DEPARTMENT | | | | | | OF | | | | | | PATHOLOGY | | + + + + + + | UNIT ABO | A | | [facility] | | | | | | DEPARTMENT | | | | | | OF | | | | | | PATHOLOGY | | + + + + + + | UNIT RH | POS | | [facility] | | | | | | DEPARTMENT | | | | | | OF | | | | | | PATHOLOGY | | + + + + + + | STATUS OF | Returned to Blood Bank | | [facility] | | | UNIT | | | DEPARTMENT | | | | | | OF | | | | | | PATHOLOGY | | + + + + + + | BLOOD | [id number] | | [facility] | | | PRODUCT | | | DEPARTMENT | | | CODE | | | OF | | | | | | PATHOLOGY | | + + + + + + + + | Specimen | + + | | + + + + + + + | Performing | Address | City/State/Zipcode | Phone Number | | Organization | | | | + + + + + | [facility] | [address] | [place] [address] | | | PATHOLOGY | [address] | | | + + + + + PRODUCT - FRESH FROZEN PLASMA (04/23/2014 10:54 AM PST) + + + + + + | Component | Value | Ref Range | Performed | Pathologist | | | | | At | Signature | + + + + + + | PRODUCT | PLASMA THAWED | | [facility] | | | DESCRIPTION | | | DEPARTMENT | | | | | | OF | | | | | | PATHOLOGY | | + + + + + + | PRODUCT | [id number] | | [facility] | | | UNIT # | | | DEPARTMENT | | | | | | OF | | | | | | PATHOLOGY | | + + + + + + | UNIT ABO | A | | [facility] | | | | | | DEPARTMENT | | | | | | OF | | | | | | PATHOLOGY | | + + + + + + | UNIT RH | POS | | [facility] | | | | | | DEPARTMENT | | | | | | OF | | | | | | PATHOLOGY | | + + + + + + | STATUS OF | Presumed Transfused | | [facility] | | | UNIT | | | DEPARTMENT | | | | | | OF | | | | | | PATHOLOGY | | + + + + + + | BLOOD | [id number] | | [facility] | | | PRODUCT | | | DEPARTMENT | | | CODE | | | OF | | | | | | PATHOLOGY | | + + + + + + + + | Specimen | + + | | + + + + + + + | Performing | Address | City/State/Zipcode | Phone Number | | Organization | | | | + + + + + | [facility] | [address] | [place] [address] | | | PATHOLOGY | [address] | | | + + + + + PRODUCT - FRESH FROZEN PLASMA (04/23/2014 10:54 AM PST) + + + + + + | Component | Value | Ref Range | Performed | Pathologist | | | | | At | Signature | + + + + + + | PRODUCT | PLASMA THAWED | | [facility] | | | DESCRIPTION | | | DEPARTMENT | | | | | | OF | | | | | | PATHOLOGY | | + + + + + + | PRODUCT | [id number] | | [facility] | | | UNIT # | | | DEPARTMENT | | | | | | OF | | | | | | PATHOLOGY | | + + + + + + | UNIT ABO | O | | [facility] | | | | | | DEPARTMENT | | | | | | OF | | | | | | PATHOLOGY | | + + + + + + | UNIT RH | POS | | [facility] | | | | | | DEPARTMENT | | | | | | OF | | | | | | PATHOLOGY | | + + + + + + | STATUS OF | Returned to Blood Bank | | [facility] | | | UNIT | | | DEPARTMENT | | | | | | OF | | | | | | PATHOLOGY | | + + + + + + | BLOOD | [id number] | | [facility] | | | PRODUCT | | | DEPARTMENT | | | CODE | | | OF | | | | | | PATHOLOGY | | + + + + + + + + | Specimen | + + | | + + + + + + + | Performing | Address | City/State/Zipcode | Phone Number | | Organization | | | | + + + + + | [facility] | [address] | [place] [address] | | | PATHOLOGY | [address] | | | + + + + + CARDIOLOGY (04/23/2014 12:00 AM PST) + + + | Narrative | Performed At | + + + | | | | | | + + + + + | Procedure Note | + + | Emeka Elias - 05/15/2014 9:07 AM PST | + + documented in this encounter Visit Diagnoses + + | Diagnosis | + + | Crohn's disease of both small and large intestine with complication (HCC) - Primary | | Regional enteritis of small intestine with large intestine | + + | 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 - need to repeat in 3months to confirm | | Other and unspecified coagulation defects | + + | Perirectal abscess Abscess of anal and rectal regions | + + | Iron deficiency anemia Iron deficiency anemia, unspecified | + + | Leukocytosis Leukocytosis, unspecified | + + | Thrombocytosis (HCC) Essential thrombocythemia | + + | Popliteal artery thrombosis, 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 | + + | Occlusive thrombus Embolism and thrombosis of unspecified site | + + | Hypoalbuminemia Other disorders of plasma protein metabolism | + + | Hypophosphatemia Disorders of phosphorus metabolism | + + | Urinary retention Retention of urine, unspecified | + + documented in this encounter Administered Medications + +--------+ +--------+------+------+ | Medication Order | MAR | Action | Dose | Rate | Site | | | Action | Date | | | | + +--------+ +--------+------+------+ | acetaminophen (TYLENOL) oral | Given | 05/03/19 | 650 mg | | | | suspension 650 mg 650 mg, | | 15 3:47 | | | | | feeding tube, EVERY 6 HOURS, | | AM PST | | | | | First dose on [facility] 05/02/14 at | | | | | | | 1600, Until Discontinued | | | | | | + +--------+ +--------+------+------+ +-------+ +--------+---+---+ | Given | 05/02/19 | 650 mg | | | | | 15 10:02 | | | | | | PM PST | | | | +-------+ +--------+---+---+ | Given | 05/02/19 | 650 mg | | | | | 15 4:00 | | | | | | PM PST | | | | +-------+ +--------+---+---+ +---+---+ | | | +---+---+ + +-------+ +--------+---+---+ | acetaminophen (TYLENOL) tablet | Given | 04/26/19 | 650 mg | | | | 650 mg 650 mg, feeding tube, | | 15 8:45 | | | | | EVERY 6 HOURS, First dose on [facility] | | PM PST | | | | | 04/25/14 at 1030, Until | | | | | | | Discontinued | | | | | | + +-------+ +--------+---+---+ +-------+ +--------+---+---+ | Given | 04/26/19 | 650 mg | | | | | 15 6:29 | | | | | | PM PST | | | | +-------+ +--------+---+---+ | Given | 04/26/19 | 650 mg | | | | | 15 8:34 | | | | | | AM PST | | | | +-------+ +--------+---+---+ +---+---+ | | | +---+---+ + +-------+ +--------+---+---+ | acetaminophen (TYLENOL) tablet | Given | 05/02/19 | 650 mg | | | | 650 mg 650 mg, oral, EVERY 6 | | 15 10:10 | | | | | HOURS, First dose (after last | | AM PST | | | | | modification) on 04/27/14 at | | | | | | | 0400, Until Discontinued | | | | | | + +-------+ +--------+---+---+ +-------+ +--------+---+---+ | Given | 05/02/19 | 650 mg | | | | | 15 4:30 | | | | | | AM PST | | | | +-------+ +--------+---+---+ | Given | 05/01/19 | 650 mg | | | | | 15 9:52 | | | | | | PM PST | | | | +-------+ +--------+---+---+ +---+---+ | | | +---+---+ + +-------+ +--------+---+---+ | acetaminophen (TYLENOL) tablet | Given | 05/13/19 | 650 mg | | | | 650 mg 650 mg, feeding tube, | | 15 8:39 | | | | | EVERY 6 HOURS, First dose on Fri | | AM PST | | | | | 05/03/14 at 0830, Until | | | | | | | Discontinued | | | | | | + +-------+ +--------+---+---+ +-------+ +--------+---+---+ | Given | 05/13/19 | 650 mg | | | | | 15 3:37 | | | | | | AM PST | | | | +-------+ +--------+---+---+ | Given | 05/12/19 | 650 mg | | | | | 15 10:23 | | | | | | PM PST | | | | +-------+ +--------+---+---+ +---+---+ | | | +---+---+ + +---------+ +--------+---+---+ | acetaZOLAMIDE (DIAMOX) | New Bag | 05/02/19 | 500 mg | | | | injection 500 mg 500 mg, | | 15 3:30 | | | | | intravenous, ONCE, 1 dose, [facility] | | PM PST | | | | | 05/02/14 at 1515 | | | | | | + +---------+ +--------+---+---+ +---+---+ | | | +---+---+ + +---------+ +--------+---+---+ | acetaZOLAMIDE (DIAMOX) | New Bag | 05/03/19 | 500 mg | | | | injection 500 mg 500 mg, | | 15 9:04 | | | | | intravenous, ONCE, 1 dose, Fri | | AM PST | | | | | 05/03/14 at 0830 | | | | | | + +---------+ +--------+---+---+ +---+---+ | | | +---+---+ + +-------+ +------+---+---+ | albuterol 0.083% | Given | 05/02/19 | 5 mg | | | | (PROVENTIL,VENTOLIN) 2.5 mg /3 mL | | 15 1:46 | | | | | (0.083 %) nebulizer solution 2.5 | | AM PST | | | | | mg 2.5 mg, inhalation, EVERY 4 | | | | | | | HOURS NEEDED, Starting Wed | | | | | | | 05/01/14 at 0842, Until 05/13/14 | | | | | | | at 1515, dyspnea/SOB | | | | | | + +-------+ +------+---+---+ +-------+ +--------+---+---+ | Given | 05/01/19 | 2.5 mg | | | | | 15 9:03 | | | | | | AM PST | | | | +-------+ +--------+---+---+ +---+---+ | | | +---+---+ + +-------+ +------+---+------+ | alteplase (CATHFLO ACTIVASE) | Given | 04/26/19 | 2 mg | | PICC | | injection 2 mg 2 mg, | | 15 3:34 | | | | | Intracatheter, ONCE, 1 dose, Fri | | PM PST | | | | | 04/26/14 at 1430 | | | | | | + +-------+ +------+---+------+ +---+---+ | | | +---+---+ + +-------+ +------+---+---+ | alteplase (CATHFLO ACTIVASE) | Given | 04/30/19 | 2 mg | | | | injection 2 mg 2 mg, | | 15 11:47 | | | | | Intracatheter, NEEDED, 3 | | AM PST | | | | | doses, Starting 04/26/14 at | | | | | | | 1545, Until 05/13/14 at 1515, | | | | | | | PICC | | | | | | + +-------+ +------+---+---+ +---+---+ | | | +---+---+ + +-------+ +--------+---+---+ | ascorbic acid liquid 500 mg | Given | 04/26/19 | 500 mg | | | | 500 mg, feeding tube, TWICE | | 15 8:47 | | | | | DAILY, First dose on Tue04/24/14 | | PM PST | | | | | at 1400, Until Discontinued | | | | | | + +-------+ +--------+---+---+ +-------+ +--------+---+---+ | Given | 04/26/19 | 500 mg | | | | | 15 9:26 | | | | | | AM PST | | | | +-------+ +--------+---+---+ | Given | 04/25/19 | 500 mg | | | | | 15 9:48 | | | | | | PM PST | | | | +-------+ +--------+---+---+ +---+---+ | | | +---+---+ + +-------+ +--------+---+---+ | ascorbic acid liquid 500 mg | Given | 05/02/19 | 500 mg | | | | 500 mg, oral, TWICE DAILY, First | | 15 8:29 | | | | | dose (after last modification) on | | AM PST | | | | | 04/27/14 at 0900, Until | | | | | | | Discontinued | | | | | | + +-------+ +--------+---+---+ +-------+ +--------+---+---+ | Given | 05/01/19 | 500 mg | | | | | 15 9:52 | | | | | | PM PST | | | | +-------+ +--------+---+---+ | Given | 05/01/19 | 500 mg | | | | | 15 9:43 | | | | | | AM PST | | | | +-------+ +--------+---+---+ +---+---+ | | | +---+---+ + +-------+ +--------+---+---+ | ascorbic acid liquid 500 mg | Given | 05/13/19 | 500 mg | | | | 500 mg, feeding tube, TWICE | | 15 8:38 | | | | | DAILY, First dose (after last | | AM PST | | | | | modification) on [facility] 05/02/14 at | | | | | | | 2100, Until Discontinued | | | | | | + +-------+ +--------+---+---+ +-------+ +--------+---+---+ | Given | 05/12/19 | 500 mg | | | | | 15 9:29 | | | | | | PM PST | | | | +-------+ +--------+---+---+ | Given | 05/12/19 | 500 mg | | | | | 15 9:26 | | | | | | AM PST | | | | +-------+ +--------+---+---+ +---+---+ | | | +---+---+ + +-------+ +-------+---+---+ | bisacodyl (DULCOLAX) | Given | 04/24/19 | 10 mg | | | | suppository 10 mg 10 mg, rectal, | | 15 10:30 | | | | | ONCE, 1 dose, [facility] 04/24/14 at | | AM PST | | | | | 1015 | | | | | | + +-------+ +-------+---+---+ +---+---+ | | | +---+---+ + +-------+ +-------+---+---+ | bisacodyl (DULCOLAX) | Given | 04/25/19 | 10 mg | | | | suppository 10 mg 10 mg, rectal, | | 15 10:55 | | | | | ONCE, 1 dose, [facility] 04/25/14 at | | AM PST | | | | | 0915 | | | | | | + +-------+ +-------+---+---+ +---+---+ | | | +---+---+ + +---------+ +-----+---+---+ | ceFAZolin (ANCEF) IV 1 g 1 g, | New Bag | 04/23/19 | 1 g | | | | intravenous, INTRAPROCEDURE ONCE, | | 15 4:30 | | | | | 1 dose, Starting 04/23/14 at | | PM PST | | | | | 1620, Until 04/23/14 at 1630 | | | | | | + +---------+ +-----+---+---+ +---+---+ | | | +---+---+ + +-------+ +-------+---+---+ | chlorhexidine (PERIDEX) | Given | 04/27/19 | 15 mL | | | | mouthwash 15 mL 15 mL, oral, | | 15 5:43 | | | | | EVERY 6 HOURS, First dose on Tue | | AM PST | | | | | 04/23/14 at 1245, Until | | | | | | | Discontinued | | | | | | + +-------+ +-------+---+---+ +-------+ +-------+---+---+ | Given | 04/26/19 | 15 mL | | | | | 15 8:47 | | | | | | PM PST | | | | +-------+ +-------+---+---+ | Given | 04/26/19 | 15 mL | | | | | 15 6:26 | | | | | | PM PST | | | | +-------+ +-------+---+---+ +---+---+ | | | +---+---+ + +---------+ +--------+---+---+ | chlorothiazide (DIURIL) | New Bag | 04/25/19 | 500 mg | | | | injection 500 mg 500 mg, | | 15 2:39 | | | | | intravenous, ONCE, 1 dose, [facility] | | PM PST | | | | | 04/25/14 at 1330 | | | | | | + +---------+ +--------+---+---+ +---+---+ | | | +---+---+ + +---------+ + + +---+ | dextrose 5%-NaCl 0.45% IV | New Bag | 04/26/19 | 75 mL/hr | 75 mL/hr | | | infusion 75 mL/hr, intravenous, | | 15 1:30 | | | | | CONTINUOUS, Starting 04/26/14 | | PM PST | | | | | at 1330, Until 04/27/14 at | | | | | | | 1424 | | | | | | + +---------+ + + +---+ +---+---+ | | | +---+---+ + + + + + +---+ | dextrose 5%-NaCl 0.45% IV | Rate/Dos | 04/27/19 | 20 mL/hr | 20 mL/hr | | | infusion 20 mL/hr, intravenous, | e Change | 15 2:28 | | | | | CONTINUOUS, Starting 04/27/14 | | PM PST | | | | | at 1430, Until 04/28/14 at | | | | | | | 0743 | | | | | | + + + + + +---+ +---+---+ | | | +---+---+ + +-------+ +-------+---+---+ | enoxaparin (LOVENOX) injection | Given | 05/13/19 | 80 mg | | | | 80 mg 80 mg, subcutaneous, EVERY | | 15 8:38 | | | | | 12 HOURS, First dose on Sat | | AM PST | | | | | 05/11/14 at 2100, Until | | | | | | | Discontinued | | | | | | + +-------+ +-------+---+---+ +-------+ +-------+---+---+ | Given | 05/12/19 | 80 mg | | | | | 15 9:29 | | | | | | PM PST | | | | +-------+ +-------+---+---+ | Given | 05/12/19 | 80 mg | | | | | 15 9:26 | | | | | | AM PST | | | | +-------+ +-------+---+---+ +---+---+ | | | +---+---+ + +-------+ +-------+---+---+ | enoxaparin (LOVENOX) injection | Given | 05/08/19 | 90 mg | | | | 90 mg 90 mg (1 mg/kg | | 15 10:12 | | | | | 88 kg), subcutaneous, EVERY 12 | | PM PST | | | | | HOURS, First dose on 04/28/14 | | | | | | | at 0930, Until Discontinued | | | | | | + +-------+ +-------+---+---+ +-------+ +-------+---+---+ | Given | 05/08/19 | 90 mg | | | | | 15 8:04 | | | | | | AM PST | | | | +-------+ +-------+---+---+ | Given | 05/07/19 | 90 mg | | | | | 15 10:09 | | | | | | PM PST | | | | +-------+ +-------+---+---+ +---+---+ | | | +---+---+ + +-------+ +-------+---+---+ | famotidine (PEPCID) suspension | Given | 05/09/19 | 20 mg | | | | 20 mg 20 mg, feeding tube, TWICE | | 15 10:10 | | | | | DAILY, First dose on Tue05/06/14 | | PM PST | | | | | at 2100, Until Discontinued | | | | | | + +-------+ +-------+---+---+ +-------+ +-------+---+---+ | Given | 05/09/19 | 20 mg | | | | | 15 8:39 | | | | | | AM PST | | | | +-------+ +-------+---+---+ | Given | 05/08/19 | 20 mg | | | | | 15 9:25 | | | | | | PM PST | | | | +-------+ +-------+---+---+ +---+---+ | | | +---+---+ + +-------+ +-------+---+---+ | famotidine (PEPCID) tablet 20 | Given | 04/26/19 | 20 mg | | | | mg 20 mg, feeding tube, TWICE | | 15 8:46 | | | | | DAILY, First dose on Tue04/24/14 | | PM PST | | | | | at 2100, Until Discontinued | | | | | | + +-------+ +-------+---+---+ +-------+ +-------+---+---+ | Given | 04/26/19 | 20 mg | | | | | 15 9:26 | | | | | | AM PST | | | | +-------+ +-------+---+---+ | Given | 04/25/19 | 20 mg | | | | | 15 9:48 | | | | | | PM PST | | | | +-------+ +-------+---+---+ +---+---+ | | | +---+---+ + +-------+ +-------+---+---+ | famotidine (PEPCID) tablet 20 | Given | 05/02/19 | 20 mg | | | | mg 20 mg, oral, TWICE DAILY, | | 15 8:30 | | | | | First dose (after last | | AM PST | | | | | modification) on 04/27/14 at | | | | | | | 0900, Until Discontinued | | | | | | + +-------+ +-------+---+---+ +-------+ +-------+---+---+ | Given | 05/01/19 | 20 mg | | | | | 15 9:52 | | | | | | PM PST | | | | +-------+ +-------+---+---+ | Given | 05/01/19 | 20 mg | | | | | 15 9:43 | | | | | | AM PST | | | | +-------+ +-------+---+---+ +---+---+ | | | +---+---+ + +-------+ +-------+---+---+ | famotidine (PEPCID) tablet 20 | Given | 05/06/19 | 20 mg | | | | mg 20 mg, feeding tube, TWICE | | 15 8:52 | | | | | DAILY, First dose (after last | | AM PST | | | | | modification) on [facility] 05/02/14 at | | | | | | | 2100, Until Discontinued | | | | | | + +-------+ +-------+---+---+ +-------+ +-------+---+---+ | Given | 05/05/19 | 20 mg | | | | | 15 10:04 | | | | | | PM PST | | | | +-------+ +-------+---+---+ | Given | 05/05/19 | 20 mg | | | | | 15 8:10 | | | | | | AM PST | | | | +-------+ +-------+---+---+ +---+---+ | | | +---+---+ + +-------+ +-------+---+---+ | famotidine (PEPCID) tablet 20 | Given | 02/02/20 | 20 mg | | | | mg 20 mg, oral, TWICE DAILY, | | 15 8:39 | | | | | First dose on Tue05/10/14 at | | AM PST | | | | | 1200, Until Discontinued | | | | | | + +-------+ +-------+---+---+ +-------+ +-------+---+---+ | Given | 05/12/19 | 20 mg | | | | | 15 9:29 | | | | | | PM PST | | | | +-------+ +-------+---+---+ | Given | 05/12/19 | 20 mg | | | | | 15 9:26 | | | | | | AM PST | | | | +-------+ +-------+---+---+ +---+---+ | | | +---+---+ + +---------+ +-------+-------+---+ | famotidine in NS (PEPCID) IV 20 | New Bag | 04/24/19 | 20 mg | 200 | | | mg 20 mg, intravenous, EVERY 12 | | 15 10:00 | | mL/hr | | | HOURS, First dose on Tue04/23/14 | | AM PST | | | | | at 1300, Until Discontinued | | | | | | + +---------+ +-------+-------+---+ +---------+ +-------+-------+---+ | New Bag | 04/23/19 | 20 mg | 200 | | | | 15 9:24 | | mL/hr | | | | PM PST | | | | +---------+ +-------+-------+---+ | New Bag | 04/23/19 | 20 mg | 200 | | | | 15 3:00 | | mL/hr | | | | PM PST | | | | +---------+ +-------+-------+---+ +---+---+ | | | +---+---+ + + + +--------+---+---+ | fentaNYL citrate (PF) | Rate/Dos | 04/24/19 | 50 mcg | | | | (SUBLIMAZE) injection 25-100 mcg | e Change | 15 11:00 | | | | | 25-100 mcg, intravenous, EVERY 1 | | AM PST | | | | | HOUR NEEDED, Starting Tue | | | | | | | 04/23/14 at 1104, Until Wed | | | | | | | 04/24/14 at 1141, moderate pain | | | | | | + + + +--------+---+---+ +---+---+ | | | +---+---+ + +---------+ +--------+---+---+ | fentaNYL citrate (PF) | New Bag | 04/24/19 | 75 mcg | | | | (SUBLIMAZE) injection 25-100 mcg | | 15 10:00 | | | | | 25-100 mcg, intravenous, | | AM PST | | | | | INTRAPROCEDURE PRN, Starting Tue | | | | | | | 04/23/14 at 1619, Until Tue | | | | | | | 04/23/14 at 1723, sedation, may | | | | | | | bolus from Fentanyl drip during | | | | | | | angio procedure | | | | | | + +---------+ +--------+---+---+ +---------+ +--------+---+---+ | New Bag | 04/23/19 | 50 mcg | | | | | 15 5:05 | | | | | | PM PST | | | | +---------+ +--------+---+---+ | New Bag | 04/23/19 | 50 mcg | | | | | 15 4:50 | | | | | | PM PST | | | | +---------+ +--------+---+---+ +---+---+ | | | +---+---+ + +---------+ +--------+ +---+ | fentaNYL citrate in NS (PF) | New Bag | 04/24/19 | 100 | 10 mL/hr | | | (SUBLIMAZE) IV infusion 25-250 | | 15 6:30 | mcg/hr | | | | mcg/hr (rounded to 2.5-25 mL/hr), | | AM PST | | | | | intravenous, CONTINUOUS, | | | | | | | Starting 04/23/14 at 1145, | | | | | | | Until 04/24/14 at 1141 | | | | | | + +---------+ +--------+ +---+ +---------+ +--------+ +---+ | New Bag | 04/23/19 | 100 | 10 mL/hr | | | | 15 12:00 | mcg/hr | | | | | PM PST | | | | +---------+ +--------+ +---+ +---+---+ | | | +---+---+ + +---------+ +-------+---+---+ | furosemide (LASIX) injection 20 | New Bag | 04/28/19 | 20 mg | | | | mg 20 mg, intravenous, ONCE, 1 | | 15 3:53 | | | | | dose, 04/28/14 at 1545 | | PM PST | | | | + +---------+ +-------+---+---+ +---+---+ | | | +---+---+ + +---------+ +-------+---+---+ | furosemide (LASIX) injection 20 | New Bag | 04/29/19 | 20 mg | | | | mg 20 mg, intravenous, TWICE | | 15 6:03 | | | | | DAILY (DIURETIC), 3 doses, First | | PM PST | | | | | dose on Tue04/29/14 at 1115, Last | | | | | | | dose on Tue04/30/14 at 0800 | | | | | | + +---------+ +-------+---+---+ +---------+ +-------+---+---+ | New Bag | 04/29/19 | 20 mg | | | | | 15 12:04 | | | | | | PM PST | | | | +---------+ +-------+---+---+ +---+---+ | | | +---+---+ + +---------+ +-------+---+---+ | furosemide (LASIX) injection 20 | New Bag | 04/30/19 | 20 mg | | | | mg 20 mg, intravenous, ONCE, 1 | | 15 3:20 | | | | | dose, Beth 04/30/14 at 1445 | | PM PST | | | | + +---------+ +-------+---+---+ +---+---+ | | | +---+---+ + +---------+ +-------+---+---+ | furosemide (LASIX) injection 20 | New Bag | 05/01/19 | 20 mg | | | | mg 20 mg, intravenous, ONCE, 1 | | 15 9:43 | | | | | dose, 05/01/14 at 0900 | | AM PST | | | | + +---------+ +-------+---+---+ +---+---+ | | | +---+---+ + +---------+ +-------+---+---+ | furosemide (LASIX) injection 20 | New Bag | 05/02/19 | 20 mg | | | | mg 20 mg, intravenous, TWICE | | 15 8:33 | | | | | DAILY (DIURETIC), 4 doses, First | | AM PST | | | | | dose on Tue05/02/14 at 0845, Last | | | | | | | dose on Tue05/03/14 at 1700 | | | | | | + +---------+ +-------+---+---+ +---+---+ | | | +---+---+ + +-------+ +-------+---+---+ | furosemide (LASIX) liquid 20 mg | Given | 05/09/19 | 20 mg | | | | 20 mg, feeding tube, DAILY, | | 15 8:39 | | | | | First dose (after last | | AM PST | | | | | modification) on Tue05/07/14 at | | | | | | | 0900, Until Discontinued | | | | | | + +-------+ +-------+---+---+ +-------+ +-------+---+---+ | Given | 05/08/19 | 20 mg | | | | | 15 8:04 | | | | | | AM PST | | | | +-------+ +-------+---+---+ | Given | 05/07/19 | 20 mg | | | | | 15 8:56 | | | | | | AM PST | | | | +-------+ +-------+---+---+ +---+---+ | | | +---+---+ + +-------+ +-------+---+---+ | furosemide (LASIX) liquid 40 mg | Given | 05/03/19 | 40 mg | | | | 40 mg, feeding tube, TWICE | | 15 3:40 | | | | | DAILY (DIURETIC), First dose on | | PM PST | | | | | [place] 05/02/14 at 1700, Until | | | | | | | Discontinued | | | | | | + +-------+ +-------+---+---+ +-------+ +-------+---+---+ | Given | 05/03/19 | 40 mg | | | | | 15 8:32 | | | | | | AM PST | | | | +-------+ +-------+---+---+ | Given | 05/02/19 | 40 mg | | | | | 15 5:00 | | | | | | PM PST | | | | +-------+ +-------+---+---+ +---+---+ | | | +---+---+ + +-------+ +-------+---+---+ | furosemide (LASIX) liquid 40 mg | Given | 05/06/19 | 40 mg | | | | 40 mg, feeding tube, DAILY, | | 15 8:52 | | | | | First dose (after last | | AM PST | | | | | modification) on 05/04/14 at | | | | | | | 0900, Until Discontinued | | | | | | + +-------+ +-------+---+---+ +-------+ +-------+---+---+ | Given | 05/05/19 | 40 mg | | | | | 15 8:10 | | | | | | AM PST | | | | +-------+ +-------+---+---+ | Given | 05/04/19 | 40 mg | | | | | 15 8:04 | | | | | | AM PST | | | | +-------+ +-------+---+---+ +---+---+ | | | +---+---+ + +-------+ +--------+---+---+ | gabapentin (NEURONTIN) capsule | Given | 05/13/19 | 300 mg | | | | 300 mg 300 mg, oral, THREE TIMES | | 15 8:39 | | | | | DAILY, First dose on Tue05/10/14 | | AM PST | | | | | at 1200, Until Discontinued | | | | | | + +-------+ +--------+---+---+ +-------+ +--------+---+---+ | Given | 05/12/19 | 300 mg | | | | | 15 10:24 | | | | | | PM PST | | | | +-------+ +--------+---+---+ | Given | 05/12/19 | 300 mg | | | | | 15 4:51 | | | | | | PM PST | | | | +-------+ +--------+---+---+ +---+---+ | | | +---+---+ + +-------+ +--------+---+---+ | gabapentin (NEURONTIN) liquid | Given | 05/09/19 | 300 mg | | | | 300 mg 300 mg, feeding tube, | | 15 10:10 | | | | | THREE TIMES DAILY, First dose on | | PM PST | | | | | 05/03/14 at 0945, Until | | | | | | | Discontinued | | | | | | + +-------+ +--------+---+---+ +-------+ +--------+---+---+ | Given | 05/09/19 | 300 mg | | | | | 15 3:48 | | | | | | PM PST | | | | +-------+ +--------+---+---+ | Given | 05/09/19 | 300 mg | | | | | 15 8:39 | | | | | | AM PST | | | | +-------+ +--------+---+---+ +---+---+ | | | +---+---+ + +-------+ + +---+---+ | guar gum (BENEFIBER) oral | Given | 05/13/19 | 1 packet | | | | powder 3-4 packet 3-4 packet, | | 15 8:38 | | | | | feeding tube, DAILY, First dose | | AM PST | | | | | on Tue05/10/14 at 1315, Until | | | | | | | Discontinued | | | | | | + +-------+ + +---+---+ +-------+ +---------+---+---+ | Given | 05/12/19 | 3 | | | | | 15 9:26 | packets | | | | | AM PST | | | | +-------+ +---------+---+---+ | Given | 05/11/19 | 3 | | | | | 15 9:11 | packets | | | | | AM PST | | | | +-------+ +---------+---+---+ +---+---+ | | | +---+---+ + +-------+ +--------+---+--------+ | haemophilus b polysac-tetanus | Given | 05/10/19 | 0.5 mL | | Right | | toxoid (ActHIB) injection 0.5 mL | | 15 12:47 | | | Leg | | 0.5 mL, intramuscular, ONCE, 1 | | PM PST | | | | | dose, 05/10/14 at 1000 | | | | | | + +-------+ +--------+---+--------+ +---+---+ | | | +---+---+ + +---------+ + +---+---+ | heparin 10 unit/mL IV flush | New Bag | 04/24/19 | 50 Units | | | | syringe 50 Units 50 Units, | | 15 6:40 | | | | | intravenous, NEEDED, Starting | | PM PST | | | | | 04/23/14 at 1859, Until Fri | | | | | | | 04/26/14 at 1252, line patency, | | | | | | | per protocol | | | | | | + +---------+ + +---+---+ +---------+ + +---+---+ | New Bag | 04/24/19 | 50 Units | | | | | 15 6:39 | | | | | | PM PST | | | | +---------+ + +---+---+ | New Bag | 04/23/19 | 50 Units | | | | | 15 9:24 | | | | | | PM PST | | | | +---------+ + +---+---+ +---+---+ | | | +---+---+ + +-------+ + +---+---+ | heparin 10 unit/mL IV flush | Given | 04/26/19 | 50 Units | | | | syringe 1 dose, Starting Fri | | 15 8:47 | | | | | 04/26/14 at 1947, Until Fri | | PM PST | | | | | 04/26/14 at 2047 | | | | | | + +-------+ + +---+---+ +---+---+ | | | +---+---+ + + + +--------+---+---+ | heparin bolus from continuous | Bolus | 04/27/19 | 7,050 | | | | infusion 7,050 Units | from | 15 2:02 | Units | | | | intravenous, BOLUS PRN, Starting | Same Bag | PM PST | | | | | 04/26/14 at 2100, Until Sun | | | | | | | 1/18/15 at 0743, heparin level < | | | | | | | 0.1 units/mL | | | | | | + + + +--------+---+---+ +---+---+ | | | +---+---+ + + + + +-------+---+ | heparin in D5W IV infusion | Rate/Dos | 04/28/19 | 1,850 | 18.5 | | | 25,000 units/250 mL 1-2,000 | e Verify | 15 8:00 | Units/hr | mL/hr | | | Units/hr (rounded to 0.01-20 | | AM PST | | | | | mL/hr), intravenous, CONTINUOUS, | | | | | | | Starting 04/26/14 at 2145, | | | | | | | Until 04/28/14 at 0743 | | | | | | + + + + +-------+---+ + + + +-------+---+ | New Bag | 04/27/19 | 1,850 | 18.5 | | | | 15 10:00 | Units/hr | mL/hr | | | | PM PST | | | | + + + +-------+---+ | Rate/Dose Change | 04/27/19 | 1,850 | 18.5 | | | | 15 9:00 | Units/hr | mL/hr | | | | PM PST | | | | + + + +-------+---+ +---+---+ | | | +---+---+ + +---------+ +-------+---+---+ | hydrocortisone sodium succinate | New Bag | 04/24/19 | 50 mg | | | | (PF) (SOLU-CORTEF) injection 50 | | 15 10:15 | | | | | mg 50 mg, intravenous, EVERY 12 | | AM PST | | | | | HOURS, First dose on Tue04/23/14 | | | | | | | at 1415, Until Discontinued | | | | | | + +---------+ +-------+---+---+ +---------+ +-------+---+---+ | New Bag | 04/23/19 | 50 mg | | | | | 15 9:25 | | | | | | PM PST | | | | +---------+ +-------+---+---+ | New Bag | 04/23/19 | 50 mg | | | | | 15 3:09 | | | | | | PM PST | | | | +---------+ +-------+---+---+ +---+---+ | | | +---+---+ + +---------+ +--------+---+---+ | HYDROmorphone (DILAUDID) | New Bag | 05/03/19 | 0.5 mg | | | | injection 0.2-1 mg 0.2-1 mg, | | 15 5:36 | | | | | intravenous, EVERY 2 HOURS | | AM PST | | | | | NEEDED, Starting Tue04/25/14 at | | | | | | | 0831, Until Tue05/03/14 at 0759, | | | | | | | moderate pain | | | | | | + +---------+ +--------+---+---+ +---------+ +--------+---+---+ | New Bag | 05/02/19 | 0.3 mg | | | | | 15 10:02 | | | | | | PM PST | | | | +---------+ +--------+---+---+ | New Bag | 05/01/19 | 0.2 mg | | | | | 15 6:23 | | | | | | PM PST | | | | +---------+ +--------+---+---+ +---+---+ | | | +---+---+ + +---------+ +--------+---+---+ | HYDROmorphone (DILAUDID) | New Bag | 04/26/19 | 0.5 mg | | | | injection 0.25-1 mg 0.25-1 mg, | | 15 5:00 | | | | | intravenous, INTRAPROCEDURE PRN, | | PM PST | | | | | Starting 04/26/14 at 1652, | | | | | | | Until 04/26/14 at 1821, | | | | | | | sedation | | | | | | + +---------+ +--------+---+---+ +---+---+ | | | +---+---+ + +---------+ +------+---+---+ | HYDROmorphone (DILAUDID) | New Bag | 04/25/19 | 1 mg | | | | injection 0.5-2 mg 0.5-2 mg, | | 15 5:15 | | | | | intravenous, EVERY 2 HOURS | | AM PST | | | | | NEEDED, Starting 04/24/14 at | | | | | | | 1141, Until [place] 04/25/14 at 0831, | | | | | | | moderate pain | | | | | | + +---------+ +------+---+---+ +---------+ +------+---+---+ | New Bag | 04/25/19 | 1 mg | | | | | 15 2:43 | | | | | | AM PST | | | | +---------+ +------+---+---+ | New Bag | 04/24/19 | 1 mg | | | | | 15 10:53 | | | | | | PM PST | | | | +---------+ +------+---+---+ +---+---+ | | | +---+---+ + +-------+ +--------+---+---+ | iohexol (OMNIPAQUE) injection | Given | 04/23/19 | 113 mL | | | | 113 mL 113 mL, intra-arterial, | | 15 4:47 | | | | | PROCEDURE ONCE, 1 dose, Tue | | PM PST | | | | | 04/23/14 at 1700 | | | | | | + +-------+ +--------+---+---+ +---+---+ | | | +---+---+ + +---------+ +--------+---+---+ | iohexol (OMNIPAQUE) injection | New Bag | 04/30/19 | 150 mL | | | | 150 mL 150 mL, intravenous, | | 15 10:06 | | | | | PROCEDURE ONCE, 1 dose, Tue | | AM PST | | | | | 04/30/14 at 1015 | | | | | | + +---------+ +--------+---+---+ +---+---+ | | | +---+---+ + +-------+ +------+---+---+ | ipratropium-albuterol (DUO-NEB) | Given | 05/04/19 | 3 mL | | | | nebulizer solution 3 mL 3 mL, | | 15 8:50 | | | | | inhalation, EVERY 4 HOURS, First | | AM PST | | | | | dose on [facility] 05/02/14 at 0530, | | | | | | | Until Discontinued | | | | | | + +-------+ +------+---+---+ +-------+ +------+---+---+ | Given | 05/04/19 | 3 mL | | | | | 15 4:19 | | | | | | AM PST | | | | +-------+ +------+---+---+ | Given | 05/04/19 | 3 mL | | | | | 15 12:12 | | | | | | AM PST | | | | +-------+ +------+---+---+ +---+---+ | | | +---+---+ + +---------+ +-------+-------+---+ | lactated ringers IV 100 mL/hr, | New Bag | 04/24/19 | 100 | 100 | | | intravenous, CONTINUOUS, | | 15 10:00 | mL/hr | mL/hr | | | Starting 04/23/14 at 1145, | | AM PST | | | | | Until 04/24/14 at 1215 | | | | | | + +---------+ +-------+-------+---+ + + +---+---+---+ | given by anesthesiology | 04/24/19 | | | | | | 15 9:17 | | | | | | AM PST | | | | + + +---+---+---+ | given by anesthesiology | 04/24/19 | | | | | | 15 9:12 | | | | | | AM PST | | | | + + +---+---+---+ +---+---+ | | | +---+---+ + +---------+ +--------+---+---+ | lactated ringers IV 500 mL, | New Bag | 04/23/19 | 500 mL | | | | intravenous, ONCE, 1 dose, Tue | | 15 10:23 | | | | | 04/23/14 at 2230 | | PM PST | | | | + +---------+ +--------+---+---+ +---+---+ | | | +---+---+ + +---------+ +--------+---+---+ | lactated ringers IV 500 mL, | New Bag | 04/24/19 | 500 mL | | | | intravenous, ONCE, 1 dose, Wed | | 15 3:24 | | | | | 04/24/14 at 0230 | | AM PST | | | | + +---------+ +--------+---+---+ +---+---+ | | | +---+---+ + + + + + +---+ | lactated ringers IV 50 mL/hr, | Rate/Dos | 04/24/19 | 50 mL/hr | 50 mL/hr | | | intravenous, CONTINUOUS, Starting | e Change | 15 2:00 | | | | | 04/24/14 at 1230, Until [place] | | PM PST | | | | | 04/25/14 at 0702 | | | | | | + + + + + +---+ +---+---+ | | | +---+---+ + + + + + +---+ | lactated ringers IV 10 mL/hr, | Rate/Dos | 04/25/19 | 10 mL/hr | 10 mL/hr | | | intravenous, CONTINUOUS, Starting | e Change | 15 5:00 | | | | | [place] 04/25/14 at 0715, Until Sat | | PM PST | | | | | 04/27/14 at 0811 | | | | | | + + + + + +---+ + + + + +---+ | Rate/Dose Change | 04/25/19 | 20 mL/hr | 20 mL/hr | | | | 15 2:00 | | | | | | PM PST | | | | + + + + +---+ | Rate/Dose Change | 04/25/19 | 10 mL/hr | 10 mL/hr | | | | 15 8:13 | | | | | | AM PST | | | | + + + + +---+ +---+---+ | | | +---+---+ + + + +---------+---+---+ | lidocaine (LIDODERM) 5 %(700 | Applied | 05/09/19 | 1 patch | | | | mg/patch) patch 1-2 patch 1-2 | Patch | 15 12:57 | | | | | patch, transdermal, EVERY 24 | | PM PST | | | | | HOURS, First dose on 05/04/14 | | | | | | | at 1300, Until Discontinued | | | | | | + + + +---------+---+---+ + + +---------+---+---+ | Applied Patch | 05/08/19 | 2 | | | | | 15 2:34 | patches | | | | | PM PST | | | | + + +---------+---+---+ | Applied Patch | 05/06/19 | 1 patch | | | | | 15 1:13 | | | | | | PM PST | | | | + + +---------+---+---+ +---+---+ | | | +---+---+ + +-------+ +------+---+---+ | loperamide (IMODIUM A-D) 1 | Given | 05/06/19 | 2 mg | | | | mg/7.5 mL liquid 2 mg 2 mg, | | 15 12:59 | | | | | oral, EVERY 8 HOURS, First dose | | AM PST | | | | | on 05/04/14 at 1600, Until | | | | | | | Discontinued | | | | | | + +-------+ +------+---+---+ +-------+ +------+---+---+ | Given | 05/05/19 | 2 mg | | | | | 15 5:26 | | | | | | PM PST | | | | +-------+ +------+---+---+ | Given | 05/05/19 | 2 mg | | | | | 15 8:09 | | | | | | AM PST | | | | +-------+ +------+---+---+ +---+---+ | | | +---+---+ + +-------+ +------+---+---+ | loperamide (IMODIUM A-D) 1 | Given | 05/06/19 | 2 mg | | | | mg/7.5 mL liquid 2 mg 2 mg, | | 15 8:52 | | | | | feeding tube, EVERY 8 HOURS, | | AM PST | | | | | First dose (after last | | | | | | | modification) on Tue05/06/14 at | | | | | | | 0800, Until Discontinued | | | | | | + +-------+ +------+---+---+ +---+---+ | | | +---+---+ + +-------+ +------+---+---+ | loperamide (IMODIUM A-D) 1 | Given | 05/10/19 | 4 mg | | | | mg/7.5 mL liquid 4 mg 4 mg, | | 15 12:15 | | | | | feeding tube, EVERY 8 HOURS, | | AM PST | | | | | First dose (after last | | | | | | | modification) on Tue05/06/14 at | | | | | | | 1600, Until Discontinued | | | | | | + +-------+ +------+---+---+ +-------+ +------+---+---+ | Given | 05/09/19 | 4 mg | | | | | 15 3:47 | | | | | | PM PST | | | | +-------+ +------+---+---+ | Given | 05/09/19 | 4 mg | | | | | 15 8:39 | | | | | | AM PST | | | | +-------+ +------+---+---+ +---+---+ | | | +---+---+ + +-------+ +------+---+---+ | loperamide (IMODIUM) capsule 4 | Given | 05/13/19 | 4 mg | | | | mg 4 mg, oral, FOUR TIMES DAILY, | | 15 8:39 | | | | | First dose on Tue05/10/14 at | | AM PST | | | | | 1400, Until Discontinued | | | | | | + +-------+ +------+---+---+ +-------+ +------+---+---+ | Given | 05/12/19 | 4 mg | | | | | 15 10:23 | | | | | | PM PST | | | | +-------+ +------+---+---+ | Given | 05/12/19 | 4 mg | | | | | 15 6:25 | | | | | | PM PST | | | | +-------+ +------+---+---+ +---+---+ | | | +---+---+ + +-------+ +--------+---+---+ | magnesium oxide (MAG-OX) tablet | Given | 05/07/19 | 400 mg | | | | 400 mg 400 mg, feeding tube, | | 15 8:58 | | | | | ONCE, 1 dose, 05/07/14 at 0700 | | AM PST | | | | + +-------+ +--------+---+---+ +---+---+ | | | +---+---+ + +-------+ +--------+---+---+ | magnesium oxide (MAG-OX) tablet | Given | 05/11/19 | 800 mg | | | | 800 mg 800 mg, oral, ONCE, 1 | | 15 9:11 | | | | | dose, 05/11/14 at 0930 | | AM PST | | | | + +-------+ +--------+---+---+ +---+---+ | | | +---+---+ + +-------+ +--------+---+---+ | magnesium oxide (MAG-OX) tablet | Given | 05/12/19 | 800 mg | | | | 800 mg 800 mg, oral, ONCE, 1 | | 15 9:26 | | | | | dose, 05/12/14 at 0845 | | AM PST | | | | + +-------+ +--------+---+---+ +---+---+ | | | +---+---+ + +---------+ +-----+---+---+ | magnesium sulfate in water IV | New Bag | 04/25/19 | 2 g | | | | (RTU) 2 g 2 g, intravenous, | | 15 2:40 | | | | | ONCE, 1 dose, [place] 04/25/14 at 1330 | | PM PST | | | | + +---------+ +-----+---+---+ +---+---+ | | | +---+---+ + +---------+ +-----+---+---+ | magnesium sulfate in water IV | New Bag | 04/27/19 | 2 g | | | | (RTU) 2 g 2 g, intravenous, | | 15 11:50 | | | | | ONCE, 1 dose, 04/27/14 at 0900 | | AM PST | | | | + +---------+ +-----+---+---+ +---+---+ | | | +---+---+ + +---------+ +-----+---+---+ | magnesium sulfate in water IV | New Bag | 04/30/19 | 2 g | | | | (RTU) 2 g 2 g, intravenous, | | 15 10:13 | | | | | ONCE, 1 dose, Beth 04/30/14 at 0830 | | AM PST | | | | + +---------+ +-----+---+---+ +---+---+ | | | +---+---+ + +---------+ +-----+---+---+ | magnesium sulfate in water IV | New Bag | 05/04/19 | 2 g | | | | (RTU) 2 g 2 g, intravenous, | | 15 5:44 | | | | | ONCE, 1 dose, 05/04/14 at 0600 | | AM PST | | | | + +---------+ +-----+---+---+ +---+---+ | | | +---+---+ + +---------+ +-----+---+---+ | magnesium sulfate in water IV | New Bag | 04/29/19 | 4 g | | | | (RTU) 4 g 4 g, intravenous, | | 15 3:42 | | | | | ONCE, 1 dose, 04/29/14 at 0300 | | AM PST | | | | + +---------+ +-----+---+---+ +---+---+ | | | +---+---+ + +---------+ +-----+---+---+ | magnesium sulfate in water IV | New Bag | 05/02/19 | 4 g | | | | (RTU) 4 g 4 g, intravenous, | | 15 5:52 | | | | | ONCE, 1 dose, [place] 05/02/14 at 0500 | | AM PST | | | | + +---------+ +-----+---+---+ +---+---+ | | | +---+---+ + +---------+ +-----+---+---+ | magnesium sulfate in water IV | New Bag | 05/05/19 | 4 g | | | | (RTU) 4 g 4 g, intravenous, | | 15 7:09 | | | | | ONCE, 1 dose, 05/05/14 at 0645 | | AM PST | | | | + +---------+ +-----+---+---+ +---+---+ | | | +---+---+ + +---------+ +-----+---+---+ | magnesium sulfate in water IV | New Bag | 05/07/19 | 4 g | | | | (RTU) 4 g 4 g, intravenous, | | 15 10:43 | | | | | ONCE, 1 dose, Beth 05/07/14 at 1100 | | AM PST | | | | + +---------+ +-----+---+---+ +---+---+ | | | +---+---+ + +---------+ +-----+---+---+ | magnesium sulfate in water IV | New Bag | 05/12/19 | 4 g | | | | (RTU) 4 g 4 g, intravenous, | | 15 7:14 | | | | | ONCE, 1 dose, 05/12/14 at 0645 | | AM PST | | | | + +---------+ +-----+---+---+ +---+---+ | | | +---+---+ + +-------+ +--------+---+ + | meningococcal | Given | 05/10/19 | 0.5 mL | | Left Leg | | polysaccharide-dipheria toxoid | | 15 1:39 | | | | | conjugate vaccine (MENACTRA) | | PM PST | | | | | injection 0.5 mL 0.5 mL, | | | | | | | intramuscular, ONCE, 1 dose, Fri | | | | | | | 05/10/14 at 1000 | | | | | | + +-------+ +--------+---+ + +---+---+ | | | +---+---+ + +-------+ +---+---+---+ | menthol-zinc oxide (CALAZIME) | Given | 05/11/19 | | | | | topical paste topical, THREE | | 15 9:12 | | | | | TIMES DAILY NEEDED, Starting | | AM PST | | | | | [place] 04/25/14 at 1709, Until Mon | | | | | | | 05/13/14 at 1515, skin protection | | | | | | + +-------+ +---+---+---+ +-------+ +---+---+---+ | Given | 05/08/19 | | | | | | 15 9:40 | | | | | | PM PST | | | | +-------+ +---+---+---+ | Given | 05/06/19 | | | | | | 15 8:53 | | | | | | AM PST | | | | +-------+ +---+---+---+ +---+---+ | | | +---+---+ + +-------+ +-------+---+---+ | metoprolol tartrate (LOPRESSOR) | Given | 04/29/19 | 25 mg | | | | tablet 25 mg 25 mg, feeding | | 15 8:35 | | | | | tube, TWICE DAILY, First dose on | | PM PST | | | | | 04/28/14 at 0945, Until | | | | | | | Discontinued | | | | | | + +-------+ +-------+---+---+ +-------+ +-------+---+---+ | Given | 04/29/19 | 25 mg | | | | | 15 9:29 | | | | | | AM PST | | | | +-------+ +-------+---+---+ | Given | 04/28/19 | 25 mg | | | | | 15 8:30 | | | | | | PM PST | | | | +-------+ +-------+---+---+ +---+---+ | | | +---+---+ + +-------+ +---------+---+---+ | metoprolol tartrate (LOPRESSOR) | Given | 05/02/19 | 37.5 mg | | | | tablet 37.5 mg 37.5 mg, oral, | | 15 8:30 | | | | | TWICE DAILY, First dose (after | | AM PST | | | | | last modification) on Tue04/30/14 | | | | | | | at 0900, Until Discontinued | | | | | | + +-------+ +---------+---+---+ +-------+ +---------+---+---+ | Given | 05/01/19 | 37.5 mg | | | | | 15 9:52 | | | | | | PM PST | | | | +-------+ +---------+---+---+ | Given | 05/01/19 | 37.5 mg | | | | | 15 9:43 | | | | | | AM PST | | | | +-------+ +---------+---+---+ +---+---+ | | | +---+---+ + +-------+ +---------+---+---+ | metoprolol tartrate (LOPRESSOR) | Given | 05/13/19 | 37.5 mg | | | | tablet 37.5 mg 37.5 mg, feeding | | 15 8:39 | | | | | tube, TWICE DAILY, First dose | | AM PST | | | | | (after last modification) on [facility] | | | | | | | 05/02/14 at 2100, Until | | | | | | | Discontinued | | | | | | + +-------+ +---------+---+---+ +-------+ +---------+---+---+ | Given | 05/12/19 | 37.5 mg | | | | | 15 9:29 | | | | | | PM PST | | | | +-------+ +---------+---+---+ | Given | 05/12/19 | 37.5 mg | | | | | 15 9:26 | | | | | | AM PST | | | | +-------+ +---------+---+---+ +---+---+ | | | +---+---+ + +---------+ +------+---+---+ | midazolam (PF) (VERSED) | New Bag | 04/24/19 | 1 mg | | | | injection 0.5-2 mg 0.5-2 mg, | | 15 5:04 | | | | | intravenous, EVERY 4 HOURS | | AM PST | | | | | NEEDED, Starting Tu04/23/14 at | | | | | | | 1120, Until Tue04/24/14 at 1141, | | | | | | | breakthrough agitation/anxiety | | | | | | + +---------+ +------+---+---+ +---------+ +------+---+---+ | New Bag | 04/24/19 | 1 mg | | | | | 15 1:58 | | | | | | AM PST | | | | +---------+ +------+---+---+ | New Bag | 04/23/19 | 2 mg | | | | | 15 9:24 | | | | | | PM PST | | | | +---------+ +------+---+---+ +---+---+ | | | +---+---+ + +---------+ +------+---+---+ | midazolam (VERSED) injection | New Bag | 04/23/19 | 1 mg | | | | 0.25-2 mg 0.25-2 mg, | | 15 3:50 | | | | | intravenous, INTRAPROCEDURE PRN, | | PM PST | | | | | Starting Tue04/23/14 at 1537, | | | | | | | Until Tue04/23/14 at 1723, | | | | | | | sedation | | | | | | + +---------+ +------+---+---+ +---+---+ | | | +---+---+ + +---------+ +------+---+---+ | midazolam (VERSED) injection | New Bag | 04/26/19 | 1 mg | | | | 0.25-2 mg 0.25-2 mg, | | 15 5:00 | | | | | intravenous, INTRAPROCEDURE PRN, | | PM PST | | | | | Starting Tue04/26/14 at 1652, | | | | | | | Until Tue04/26/14 at 1821, | | | | | | | sedation | | | | | | + +---------+ +------+---+---+ +---+---+ | | | +---+---+ + +-------+ +---+---+---+ | nystatin (MYCOSTATIN) powder | Given | 05/12/19 | | | | | topical, TWICE DAILY, First dose | | 15 9:29 | | | | | on Tue04/30/14 at 2315, Until | | PM PST | | | | | Discontinued | | | | | | + +-------+ +---+---+---+ +-------+ +---+---+---+ | Given | 05/12/19 | | | | | | 15 8:25 | | | | | | AM PST | | | | +-------+ +---+---+---+ | Given | 05/11/19 | | | | | | 15 9:59 | | | | | | PM PST | | | | +-------+ +---+---+---+ +---+---+ | | | +---+---+ + +-------+ +--------+---+---+ | oxyCODONE (immediate release) | Given | 05/10/19 | 7.5 mg | | | | (ROXICODONE) liquid 2.5-7.5 mg | | 15 8:08 | | | | | 2.5-7.5 mg, feeding tube, EVERY 3 | | AM PST | | | | | HOURS NEEDED, Starting Mon | | | | | | | 05/06/14 at 1100, Until Fri | | | | | | | 05/10/14 at 1007, moderate pain | | | | | | + +-------+ +--------+---+---+ +-------+ +--------+---+---+ | Given | 05/10/19 | 7.5 mg | | | | | 15 4:21 | | | | | | AM PST | | | | +-------+ +--------+---+---+ | Given | 05/09/19 | 7.5 mg | | | | | 15 10:10 | | | | | | PM PST | | | | +-------+ +--------+---+---+ +---+---+ | | | +---+---+ + +-------+ +------+---+---+ | oxycodone (immediate release) | Given | 05/06/19 | 5 mg | | | | (ROXICODONE) tablet 2.5-10 mg | | 15 9:58 | | | | | 2.5-10 mg, feeding tube, EVERY 4 | | AM PST | | | | | HOURS NEEDED, Starting Fri | | | | | | | 05/03/14 at 0758, Until Mon | | | | | | | 05/06/14 at 1057, moderate pain | | | | | | + +-------+ +------+---+---+ +-------+ +------+---+---+ | Given | 05/06/19 | 5 mg | | | | | 15 6:08 | | | | | | AM PST | | | | +-------+ +------+---+---+ | Given | 05/05/19 | 5 mg | | | | | 15 10:02 | | | | | | PM PST | | | | +-------+ +------+---+---+ +---+---+ | | | +---+---+ + +-------+ +------+---+---+ | oxyCODONE (immediate release) | Given | 05/02/19 | 5 mg | | | | (ROXICODONE) tablet 5 mg 5 mg, | | 15 12:15 | | | | | oral, EVERY 4 HOURS NEEDED, | | PM PST | | | | | Starting [place] 05/02/14 at 0704, | | | | | | | Until [place] 05/02/14 at 1318, | | | | | | | moderate pain | | | | | | + +-------+ +------+---+---+ +---+---+ | | | +---+---+ + +-------+ +------+---+---+ | oxyCODONE (immediate release) | Given | 05/02/19 | 5 mg | | | | (ROXICODONE) tablet 5 mg 5 mg, | | 15 8:01 | | | | | feeding tube, EVERY 4 HOURS | | PM PST | | | | | NEEDED, Starting [place] 05/02/14 at | | | | | | | 1318, Until Tue05/02/14 at 2204, | | | | | | | moderate pain | | | | | | + +-------+ +------+---+---+ +-------+ +------+---+---+ | Given | 05/02/19 | 5 mg | | | | | 15 4:00 | | | | | | PM PST | | | | +-------+ +------+---+---+ +---+---+ | | | +---+---+ + +-------+ +-------+---+---+ | oxyCODONE (immediate release) | Given | 05/01/19 | 10 mg | | | | (ROXICODONE) tablet 5-10 mg 5-10 | | 15 9:52 | | | | | mg, oral, EVERY 4 HOURS | | PM PST | | | | | NEEDED, Starting Tue04/30/14 at | | | | | | | 1132, Until Tue05/02/14 at 0704, | | | | | | | moderate pain | | | | | | + +-------+ +-------+---+---+ +-------+ +-------+---+---+ | Given | 05/01/19 | 10 mg | | | | | 15 4:00 | | | | | | PM PST | | | | +-------+ +-------+---+---+ | Given | 05/01/19 | 10 mg | | | | | 15 11:11 | | | | | | AM PST | | | | +-------+ +-------+---+---+ +---+---+ | | | +---+---+ + +-------+ +-------+---+---+ | oxyCODONE (immediate release) | Given | 05/13/19 | 10 mg | | | | (ROXICODONE) tablet 5-10 mg 5-10 | | 15 6:46 | | | | | mg, oral, EVERY 3 HOURS | | AM PST | | | | | NEEDED, Starting Tue05/10/14 at | | | | | | | 1006, Until Tue05/13/14 at 1515, | | | | | | | severe pain | | | | | | + +-------+ +-------+---+---+ +-------+ +-------+---+---+ | Given | 05/13/19 | 10 mg | | | | | 15 3:37 | | | | | | AM PST | | | | +-------+ +-------+---+---+ | Given | 05/13/19 | 10 mg | | | | | 15 12:40 | | | | | | AM PST | | | | +-------+ +-------+---+---+ +---+---+ | | | +---+---+ + +-------+ +------+---+---+ | oxyCODONE (immediate release) | Given | 04/26/19 | 5 mg | | | | (ROXICODONE) tablet 5-15 mg 5-15 | | 15 8:46 | | | | | mg, feeding tube, EVERY 4 HOURS | | PM PST | | | | | NEEDED, Starting Tue04/24/14 | | | | | | | at 1141, Until Tue04/26/14 at | | | | | | | 2342, moderate pain | | | | | | + +-------+ +------+---+---+ +-------+ +-------+---+---+ | Given | 04/26/19 | 5 mg | | | | | 15 7:55 | | | | | | PM PST | | | | +-------+ +-------+---+---+ | Given | 04/26/19 | 10 mg | | | | | 15 8:34 | | | | | | AM PST | | | | +-------+ +-------+---+---+ +---+---+ | | | +---+---+ + +-------+ +------+---+---+ | oxyCODONE (immediate release) | Given | 04/30/19 | 5 mg | | | | (ROXICODONE) tablet 5-15 mg 5-15 | | 15 9:11 | | | | | mg, oral, EVERY 4 HOURS | | AM PST | | | | | NEEDED, Starting 04/26/14 at | | | | | | | 2341, Until Tu04/30/14 at 1141, | | | | | | | moderate pain | | | | | | + +-------+ +------+---+---+ +-------+ +------+---+---+ | Given | 04/30/19 | 5 mg | | | | | 15 1:02 | | | | | | AM PST | | | | +-------+ +------+---+---+ | Given | 04/29/19 | 5 mg | | | | | 15 8:40 | | | | | | PM PST | | | | +-------+ +------+---+---+ +---+---+ | | | +---+---+ + +-------+ +------+---+---+ | oxyCODONE (immediate release) | Given | 05/03/19 | 5 mg | | | | (ROXICODONE) tablet 5-15 mg 5-15 | | 15 3:47 | | | | | mg, feeding tube, EVERY 4 HOURS | | AM PST | | | | | NEEDED, Starting [place] 05/02/14 | | | | | | | at 2204, Until 05/03/14 at | | | | | | | 0759, moderate pain | | | | | | + +-------+ +------+---+---+ +-------+ +-------+---+---+ | Given | 05/03/19 | 10 mg | | | | | 15 12:53 | | | | | | AM PST | | | | +-------+ +-------+---+---+ | Given | 05/02/19 | 5 mg | | | | | 15 11:44 | | | | | | PM PST | | | | +-------+ +-------+---+---+ +---+---+ | | | +---+---+ + +-------+ +--------+---+---+ | potassium & sodium phosphates | Given | 04/28/19 | 250 mg | | | | (K PHOS NEUTRAL) tablet 250 mg | | 15 5:14 | | | | | 250 mg, feeding tube, ONCE, 1 | | AM PST | | | | | dose, 04/28/14 at 0530 | | | | | | + +-------+ +--------+---+---+ +---+---+ | | | +---+---+ + +-------+ +--------+---+---+ | potassium chloride (KAOCHLOR) | Given | 05/13/19 | 20 mEq | | | | liquid 20 mEq 20 mEq, feeding | | 15 8:38 | | | | | tube, THREE TIMES DAILY, First | | AM PST | | | | | dose on Tue05/03/14 at 1145, | | | | | | | Until Discontinued | | | | | | + +-------+ +--------+---+---+ +-------+ +--------+---+---+ | Given | 05/12/19 | 20 mEq | | | | | 15 10:23 | | | | | | PM PST | | | | +-------+ +--------+---+---+ | Given | 05/12/19 | 20 mEq | | | | | 15 4:52 | | | | | | PM PST | | | | +-------+ +--------+---+---+ +---+---+ | | | +---+---+ + +-------+ +--------+---+---+ | potassium chloride (KAOCHLOR) | Given | 04/25/19 | 40 mEq | | | | liquid 40 mEq 40 mEq, oral, | | 15 2:22 | | | | | ONCE, 1 dose, [place] 04/25/14 at 0145 | | AM PST | | | | + +-------+ +--------+---+---+ +---+---+ | | | +---+---+ + +-------+ +--------+---+---+ | potassium chloride (KAOCHLOR) | Given | 05/02/19 | 40 mEq | | | | liquid 40 mEq 40 mEq, feeding | | 15 5:52 | | | | | tube, ONCE, 1 dose, [place] 1/22/15 | | AM PST | | | | | at 0515 | | | | | | + +-------+ +--------+---+---+ +---+---+ | | | +---+---+ + +-------+ +--------+---+---+ | potassium chloride (KLOR-CON) | Given | 04/25/19 | 40 mEq | | | | packet 40 mEq 40 mEq, feeding | | 15 2:40 | | | | | tube, ONCE, 1 dose, [place] 04/25/14 | | PM PST | | | | | at 1330 | | | | | | + +-------+ +--------+---+---+ +---+---+ | | | +---+---+ + +-------+ +--------+---+---+ | potassium chloride (KLOR-CON) | Given | 05/01/19 | 40 mEq | | | | packet 40 mEq 40 mEq, feeding | | 15 5:39 | | | | | tube, ONCE, 1 dose, 05/01/14 | | AM PST | | | | | at 0430 | | | | | | + +-------+ +--------+---+---+ +---+---+ | | | +---+---+ + +-------+ +--------+---+---+ | potassium chloride (KLOR-CON) | Given | 05/02/19 | 40 mEq | | | | packet 40 mEq 40 mEq, feeding | | 15 8:31 | | | | | tube, ONCE, 1 dose, [place] 05/02/14 | | AM PST | | | | | at 0845 | | | | | | + +-------+ +--------+---+---+ +---+---+ | | | +---+---+ + +---------+ +--------+---+---+ | potassium chloride IV 20 mEq | New Bag | 04/30/19 | 20 mEq | | | | 20 mEq, intravenous, ONCE, 1 | | 15 1:00 | | | | | dose, 04/29/14 at 2345 | | AM PST | | | | + +---------+ +--------+---+---+ +---+---+ | | | +---+---+ + +---------+ +--------+---+---+ | potassium chloride IV 40 mEq | New Bag | 04/27/19 | 40 mEq | | | | 40 mEq, intravenous, ONCE, 1 | | 15 1:24 | | | | | dose, 04/27/14 at 0030 | | AM PST | | | | + +---------+ +--------+---+---+ +---+---+ | | | +---+---+ + +---------+ +--------+---+---+ | potassium chloride IV 40 mEq | New Bag | 04/30/19 | 40 mEq | | | | 40 mEq, intravenous, ONCE, | | 15 12:11 | | | | | dose, [place] 04/30/14 at 0800 | | PM PST | | | | + +---------+ +--------+---+---+ +---+---+ | | | +---+---+ + +-------+ +--------+---+---+ | potassium chloride SR (K-DUR) | Given | 05/02/19 | 20 mEq | | | | tablet 20 mEq 20 mEq, oral, | | 15 11:44 | | | | | ONCE, 1 dose, 05/03/14 at 0000 | | PM PST | | | | + +-------+ +--------+---+---+ +---+---+ | | | +---+---+ + +---------+ +---------+---+---+ | potassium phosphate IV 30 mmol | New Bag | 05/01/19 | 30 mmol | | | | 30 mmol, intravenous, ONCE, 1 | | 15 5:39 | | | | | dose, 05/01/14 at 0430 | | AM PST | | | | + +---------+ +---------+---+---+ +---+---+ | | | +---+---+ + +-------+ +-------+---+---+ | predniSONE (DELTASONE) tablet | Given | 04/26/19 | 15 mg | | | | 15 mg 15 mg, feeding tube, | | 15 9:26 | | | | | DAILY, First dose on Tue04/24/14 | | AM PST | | | | | at 1730, Until Discontinued | | | | | | + +-------+ +-------+---+---+ +-------+ +-------+---+---+ | Given | 04/25/19 | 15 mg | | | | | 15 8:12 | | | | | | AM PST | | | | +-------+ +-------+---+---+ | Given | 04/24/19 | 15 mg | | | | | 15 5:30 | | | | | | PM PST | | | | +-------+ +-------+---+---+ +---+---+ | | | +---+---+ + +-------+ +-------+---+---+ | predniSONE (DELTASONE) tablet | Given | 05/02/19 | 15 mg | | | | 15 mg 15 mg, oral, DAILY, First | | 15 8:30 | | | | | dose (after last modification) on | | AM PST | | | | | 04/27/14 at 0900, Until | | | | | | | Discontinued | | | | | | + +-------+ +-------+---+---+ +-------+ +-------+---+---+ | Given | 05/01/19 | 15 mg | | | | | 15 9:43 | | | | | | AM PST | | | | +-------+ +-------+---+---+ | Given | 04/30/19 | 15 mg | | | | | 15 10:12 | | | | | | AM PST | | | | +-------+ +-------+---+---+ +---+---+ | | | +---+---+ + +-------+ +-------+---+---+ | predniSONE (DELTASONE) tablet | Given | 05/13/19 | 15 mg | | | | 15 mg 15 mg, feeding tube, | | 15 8:39 | | | | | DAILY, First dose (after last | | AM PST | | | | | modification) on Tue05/03/14 at | | | | | | | 0900, Until Discontinued | | | | | | + +-------+ +-------+---+---+ +-------+ +-------+---+---+ | Given | 05/12/19 | 15 mg | | | | | 15 9:26 | | | | | | AM PST | | | | +-------+ +-------+---+---+ | Given | 05/11/19 | 15 mg | | | | | 15 9:12 | | | | | | AM PST | | | | +-------+ +-------+---+---+ +---+---+ | | | +---+---+ + + + +--------+---+---+ | probiotic kefir (RUFUS'S KEFIR) | Given - | 05/12/19 | 1 each | | | | feeding tube, THREE TIMES | Food | 15 10:24 | | | | | DAILY, First dose on Tue05/02/14 | | PM PST | | | | | at 0900, Until Discontinued | | | | | | + + + +--------+---+---+ + + +---+---+---+ | Given - Food | 05/12/19 | | | | | | 15 4:52 | | | | | | PM PST | | | | + + +---+---+---+ | Given - Food | 05/12/19 | | | | | | 15 9:26 | | | | | | AM PST | | | | + + +---+---+---+ +---+---+ | | | +---+---+ + +---------+ +---------+---+---+ | promethazine (PHENERGAN) | New Bag | 05/12/19 | 12.5 mg | | | | injection 12.5 mg 12.5 mg, | | 15 11:34 | | | | | intravenous, EVERY 8 HOURS | | PM PST | | | | | NEEDED, Starting 05/12/14 at | | | | | | | 2323, Until 05/13/14 at 1515, | | | | | | | nausea/vomiting | | | | | | + +---------+ +---------+---+---+ +---+---+ | | | +---+---+ + +-------+ +--------+---+---+ | senna (SENOKOT) liquid 8.8 mg | Given | 04/26/19 | 8.8 mg | | | | 8.8 mg (5 mL), feeding tube, | | 15 9:26 | | | | | TWICE DAILY, First dose on [place] | | AM PST | | | | | 04/25/14 at 1015, Until | | | | | | | Discontinued | | | | | | + +-------+ +--------+---+---+ +-------+ +--------+---+---+ | Given | 04/25/19 | 8.8 mg | | | | | 15 9:48 | | | | | | PM PST | | | | +-------+ +--------+---+---+ | Given | 04/25/19 | 8.8 mg | | | | | 15 11:23 | | | | | | AM PST | | | | +-------+ +--------+---+---+ +---+---+ | | | +---+---+ + +-------+ +--------+---+---+ | senna (SENOKOT) liquid 8.8 mg | Given | 05/05/19 | 8.8 mg | | | | 8.8 mg (5 mL), oral, TWICE DAILY, | | 15 8:09 | | | | | First dose (after last | | AM PST | | | | | modification) on 04/27/14 at | | | | | | | 0900, Until Discontinued | | | | | | + +-------+ +--------+---+---+ +-------+ +--------+---+---+ | Given | 05/04/19 | 8.8 mg | | | | | 15 9:15 | | | | | | PM PST | | | | +-------+ +--------+---+---+ | Given | 05/03/19 | 8.8 mg | | | | | 15 9:04 | | | | | | AM PST | | | | +-------+ +--------+---+---+ +---+---+ | | | +---+---+ + +-------+ +--------+---+---+ | senna (SENOKOT) liquid 8.8 mg | Given | 05/10/19 | 8.8 mg | | | | 8.8 mg (5 mL), feeding tube, | | 15 10:13 | | | | | TWICE DAILY, First dose (after | | AM PST | | | | | last modification) on 05/06/14 | | | | | | | at 2100, Until Discontinued | | | | | | + +-------+ +--------+---+---+ +-------+ +--------+---+---+ | Given | 05/09/19 | 8.8 mg | | | | | 15 10:10 | | | | | | PM PST | | | | +-------+ +--------+---+---+ | Given | 05/09/19 | 8.8 mg | | | | | 15 8:40 | | | | | | AM PST | | | | +-------+ +--------+---+---+ +---+---+ | | | +---+---+ + +-------+ +--------+---+---+ | tamsulosin (FLOMAX) capsule 0.4 | Given | 05/12/19 | 0.4 mg | | | | mg 0.4 mg, oral, AT BEDTIME, | | 15 10:23 | | | | | First dose on [place] 05/09/14 at | | PM PST | | | | | 1230, Until Discontinued | | | | | | + +-------+ +--------+---+---+ +-------+ +--------+---+---+ | Given | 05/11/19 | 0.4 mg | | | | | 15 10:15 | | | | | | PM PST | | | | +-------+ +--------+---+---+ | Given | 05/10/19 | 0.4 mg | | | | | 15 10:48 | | | | | | PM PST | | | | +-------+ +--------+---+---+ +---+---+ | | | +---+---+ + +-------+ +------+---+---+ | warfarin (COUMADIN) tablet 2 mg | Given | 04/29/19 | 2 mg | | | | 2 mg, feeding tube, EVERY | | 15 8:39 | | | | | EVENING, First dose on Sun | | PM PST | | | | | 04/28/14 at 2100, Until | | | | | | | Discontinued | | | | | | + +-------+ +------+---+---+ +-------+ +------+---+---+ | Given | 04/28/19 | 2 mg | | | | | 15 8:30 | | | | | | PM PST | | | | +-------+ +------+---+---+ +---+---+ | | | +---+---+ + +-------+ +------+---+---+ | warfarin (COUMADIN) tablet 3 mg | Given | 05/01/19 | 3 mg | | | | 3 mg, feeding tube, EVERY | | 15 9:52 | | | | | EVENING, First dose (after last | | PM PST | | | | | modification) on Tue04/30/14 at | | | | | | | 2100, Until Discontinued | | | | | | + +-------+ +------+---+---+ +-------+ +------+---+---+ | Given | 04/30/19 | 3 mg | | | | | 15 10:09 | | | | | | PM PST | | | | +-------+ +------+---+---+ +---+---+ | | | +---+---+ + +-------+ +------+---+---+ | warfarin (COUMADIN) tablet 5 mg | Given | 05/05/19 | 5 mg | | | | 5 mg, feeding tube, EVERY | | 15 10:04 | | | | | EVENING, First dose (after last | | PM PST | | | | | modification) on Tue05/02/14 at | | | | | | | 2100, Until Discontinued | | | | | | + +-------+ +------+---+---+ +-------+ +------+---+---+ | Given | 05/04/19 | 5 mg | | | | | 15 9:15 | | | | | | PM PST | | | | +-------+ +------+---+---+ | Given | 05/03/19 | 5 mg | | | | | 15 9:55 | | | | | | PM PST | | | | +-------+ +------+---+---+ +---+---+ | | | +---+---+ + +-------+ +------+---+---+ | warfarin (COUMADIN) tablet 5 mg | Given | 05/09/19 | 5 mg | | | | 5 mg, feeding tube, EVERY | | 15 10:10 | | | | | EVENING, First dose (after last | | PM PST | | | | | reorder) on Tue05/08/14 at 2100, | | | | | | | Until Discontinued | | | | | | + +-------+ +------+---+---+ +-------+ +------+---+---+ | Given | 05/08/19 | 5 mg | | | | | 15 9:25 | | | | | | PM PST | | | | +-------+ +------+---+---+ +---+---+ | | | +---+---+ + +-------+ +--------+---+---+ | warfarin (COUMADIN) tablet 7.5 | Given | 05/07/19 | 7.5 mg | | | | mg 7.5 mg, feeding tube, EVERY | | 15 9:59 | | | | | EVENING, First dose (after last | | PM PST | | | | | modification) on Tue05/06/14 at | | | | | | | 2100, Until Discontinued | | | | | | + +-------+ +--------+---+---+ +-------+ +--------+---+---+ | Given | 05/06/19 | 7.5 mg | | | | | 15 10:08 | | | | | | PM PST | | | | +-------+ +--------+---+---+ +---+---+ | | | +---+---+ + +-------+ +--------+---+---+ | warfarin (COUMADIN) tablet 7.5 | Given | 05/10/19 | 7.5 mg | | | | mg 7.5 mg, feeding tube, User | | 15 10:49 | | | | | Specified (Once per day on Mon | | PM PST | | | | | Fri), First dose (after last | | | | | | | reorder) on 05/10/14 at 2100, | | | | | | | Until Discontinued | | | | | | + +-------+ +--------+---+---+ +---+---+ | | | +---+---+ + +-------+ +--------+---+---+ | warfarin (COUMADIN) tablet 7.5 | Given | 05/12/19 | 7.5 mg | | | | mg 7.5 mg, feeding tube, EVERY | | 15 9:29 | | | | | EVENING, First dose (after last | | PM PST | | | | | modification) on 05/11/14 at | | | | | | | 2100, Until Discontinued | | | | | | + +-------+ +--------+---+---+ +-------+ +--------+---+---+ | Given | 05/11/19 | 7.5 mg | | | | | 15 10:21 | | | | | | PM PST | | | | +-------+ +--------+---+---+ +---+---+ | | | +---+---+ + +-------+ +---+---+---+ | white petrolatum-mineral oil | Given | 04/25/19 | | | | | (LACRILUBE) 83-15 % ophthalmic | | 15 5:16 | | | | | ointment Both Eyes, EVERY 6 | | AM PST | | | | | HOURS, First dose on Tue04/23/14 | | | | | | | at 1600, Until Discontinued | | | | | | + +-------+ +---+---+---+ +-------+ +---+---+---+ | Given | 04/24/19 | | | | | | 15 9:54 | | | | | | PM PST | | | | +-------+ +---+---+---+ | Given | 01/14/20 | | | | | | 15 4:00 | | | | | | PM PST | | | | +-------+ +---+---+---+ +---+---+ | | | +---+---+ + +-------+ + +---+---+ | zinc sulfate (ORAZINC) tablet | Given | 04/26/19 | 25 mg | | | | 25 mg elemental 25 mg elemental | | 15 9:28 | elementa | | | | (110 mg total salt), feeding | | AM PST | l | | | | tube, DAILY, 14 doses, First dose | | | | | | | on Tue04/24/14 at 1400, Last | | | | | | | dose on Tue05/07/14 at 0900 | | | | | | + +-------+ + +---+---+ +-------+ + +---+---+ | Given | 04/25/19 | 25 mg | | | | | 15 8:12 | elementa | | | | | AM PST | l | | | +-------+ + +---+---+ | Given | 04/24/19 | 25 mg | | | | | 15 3:00 | elementa | | | | | PM PST | l | | | +-------+ + +---+---+ +---+---+ | | | +---+---+ + +-------+ + +---+---+ | zinc sulfate (ORAZINC) tablet | Given | 05/02/19 | 25 mg | | | | 25 mg elemental 25 mg elemental | | 15 8:31 | elementa | | | | (110 mg total salt), oral, DAILY, | | AM PST | l | | | | 11 doses, First dose (after last | | | | | | | modification) on 04/27/14 at | | | | | | | 0900, Last dose on 05/07/14 at | | | | | | | 0900 | | | | | | + +-------+ + +---+---+ +-------+ + +---+---+ | Given | 05/01/19 | 25 mg | | | | | 15 9:43 | elementa | | | | | AM PST | l | | | +-------+ + +---+---+ | Given | 04/29/19 | 25 mg | | | | | 15 9:28 | elementa | | | | | AM PST | l | | | +-------+ + +---+---+ +---+---+ | | | +---+---+ + +-------+ + +---+---+ | zinc sulfate (ORAZINC, | Given | 05/13/19 | 50 mg | | | | ZINC-220) capsule 50 mg elemental | | 15 8:39 | elementa | | | | 50 mg elemental (220 mg total | | AM PST | l | | | | salt), oral, DAILY, First dose on | | | | | | | 05/10/14 at 1200, Until | | | | | | | Discontinued | | | | | | + +-------+ + +---+---+ +-------+ + +---+---+ | Given | 05/12/19 | 50 mg | | | | | 15 9:26 | elementa | | | | | AM PST | l | | | +-------+ + +---+---+ | Given | 05/11/19 | 50 mg | | | | | 15 9:12 | elementa | | | | | AM PST | l | | | +-------+ + +---+---+ +---+---+ | | | +---+---+ + +-------+ +--------+---+---+ | zinc sulfate 44 mg/mL solution | Given | 05/09/19 | 110 mg | | | | 110 mg 110 mg, feeding tube, | | 15 8:40 | | | | | DAILY, First dose on Tue05/03/14 | | AM PST | | | | | at 0900, Until Discontinued | | | | | | + +-------+ +--------+---+---+ +-------+ +--------+---+---+ | Given | 05/08/19 | 110 mg | | | | | 15 8:04 | | | | | | AM PST | | | | +-------+ +--------+---+---+ | Given | 05/07/19 | 110 mg | | | | | 15 8:55 | | | | | | AM PST | | | | +-------+ +--------+---+---+ +---+---+ | | | +---+---+ + +-------+ +------+---+---+ | zolpidem (AMBIEN) tablet 5 mg | Given | 05/10/19 | 5 mg | | | | 5 mg, feeding tube, AT BEDTIME | | 15 12:16 | | | | | NEEDED, Starting Gisel 05/09/14 at | | AM PST | | | | | 2104, Until 05/13/14 at 1515, | | | | | | | insomnia | | | | | | + +-------+ +------+---+---+ +---+---+ | | | +---+---+ documented in this encounter
--- OUTSIDE RECORDS SUMMARY | ~2019-03-09 | XMS | Encounter Summary ---
Demographics + + + | Address | [address] | | | [place] [address] | + + + | Home Phone | | + + + | Preferred Language | Unknown | + + + | Marital Status | | + + + | Orthodoxy Affiliation | Unknown | + + + | Race | Unknown | + + + | Ethnic Group | Unknown | + + + Author + + + | Author | [facility] | | | and [place] | + + + | Organization | [facility] | | | [...] Team Providers + +------+ + | Care Metal Room Dental Technician Name | Role | Phone | + +------+ + PCP | Unavailable | + +------+ + Encounter Details +--------+ + + + + | Date | Type | Department | Care Team | Description | +--------+ + + + + | 02/11/ | Hospital | [facility] GENER[facility] IP | Conversion | Pain | | 2017 | Encounter | CONVERSION [address] | Transaction, | | | | | [address] | Provider Unknown | | | | | [place] | [phone] | | | | | [phone] | | | | | | [phone] | | | +--------+ + + + [...] +--------+ + + + | CT ABDOMEN PELVIS W | Routin | 02/11/2017 | | Results for this | | CONTRAST | e | 6:30 PM | | procedure are in the | | | | PDT | | results section. | + +--------+ + + + documented in this encounter Results CT Abdomen Pelvis w Contrast (02/11/2017 6:30 PM PDT) + + | Specimen | + + | | + + + + + | Narrative | Performed At | + + + | This is a non-reportable procedure without a radiologist report and | | | is used for image storage only | | + + + + + | Procedure Note | + + | Tez Roper - 11/23/2018 2:13 AM PDT This is a non-reportable procedure | | without a radiologist report and isused for image storage only | + + documented in this encounter Visit Diagnoses + + | Diagnosis | + + | Pain Generalized pain | + + documented in this encounter"
--- OUTSIDE RECORDS SUMMARY | ~2019-03-09 | XMS | Encounter Summary ---
Demographics + + + | Address | [address] | | | [place] [address] | + + + | Home Phone | | + + + | Preferred Language | Unknown | + + + | Marital Status | | + + + | Taoism Affiliation | NRP | + + + | Race | White | + + + | Ethnic Group | Not or | + + + Author + + + | Author | [facility] | + + + | Organization | [facility] | + + + | Address | Unknown | + + + | Phone | Unavailable | + + + Support + + + + + | Name | Relationship | Address | Phone | + + + + + | Kole Willingham | [place] | [address] | | | | | [place], [place] | | | | | [address] | | + + + + + | Cami Sawyer | ECON | Unknown | | + + + + + Care Team Providers + +------+ + | Care Mortgage Field Inspector Name | Role | Phone | + +------+ + | Aren oRse DO | PCP | | + +------+ + Encounter Details +--------+ + + + + | Date | Type | Department | Care Team | Description | +--------+ + + + + | 03/15/ | Results | LAB REFERRED TESTS | Other, Faculty | | | 2011 | Only | [address] [facility] | [phone] | | | | | [address] | | | | | | [place], [place] | | | | | | [address] | | | +--------+ + + + + Social History + +-------+ +--------+------+ | Tobacco Use | Types | Packs/Day | Years | Date | | | | | Used | | + +-------+ +--------+------+ | Never Assessed | | 1 | 25 | | + +-------+ +--------+------+ + + [...] | + +--------+ + + + | EJECTION FRACTION | Routin | 03/15/2012 | | Results for this | | | e | 3:59 PM | | procedure are in the | | | | PST | | results section. | + +--------+ + + + documented in this encounter Results EJECTION FRACTION (03/15/2012 3:59 PM PST) + + + + + + | Component | Value | Ref Range | Performed | Pathologist | | | | | At | Signature | + + + + + + | EJECTION | 60 - 65%Comment: EF | | [facility] | | | FRACTION | Recorded from | | OF | | | | Transthoracic | | CARDIOLOGY | | | | Echocardiogram | | | | + + + + + + + + | Specimen | + + | | + + + + + + + | Performing | Address | City/State/Zipcode | Phone Number | | Organization | | | | + + + + + | [facility] | [address] | [place], [place] | | | CARDIOLOGY | [address] | [address] | | + + + + + documented in this encounter Visit Diagnoses Not on filedocumented in this encounter"
--- OUTSIDE RECORDS SUMMARY | ~2019-03-09 | XMS | Encounter Summary ---
Demographics + + + | Address | [address] | | | [place] [address] | + + + | Home Phone | | + + + | Preferred Language | Unknown | + + + | Marital Status | | + + + | Latter Day Affiliation | NRP | + + + | Race | White | + + + | Ethnic Group | Not or | + + + Author + + + | Author | [facility] | + + + | Organization | [facility] | + + + | Address | Unknown | + + + | Phone | Unavailable | + + + Support + + + + + | Name | Relationship | Address | Phone | + + + + + | Kole Willingham | [place] | [address] | | | | | [place], [place] | | | | | [address] | | + + + + + | Cami Sawyer | ECON | Unknown | | + + + + + Care Team Providers + +------+ + | Care Casino Beverage Server Name | Role | Phone | + [...] | +--------+ + + + + | 07/20/ | Abstract | Digestive [facility] | Trice Marie MD | Referral To Surgery | | 2016 | | Center at [facility] [address] | [address] | | | | | [address] | [facility] | | | | | Mailcode: Paden | [place] [address] | | | | | [facility] and | [phone] | | | | | [place] [address] | | | | | | [place], [place] | | | | | | [address] | | | | | | [phone] | | | +--------+ + + + [...]
--- OUTSIDE RECORDS SUMMARY | ~2019-03-09 | XMS | Encounter Summary ---
Demographics + + + | Address | [address] | | | [place] [address] | + + + | Home Phone | | + + + | Preferred Language | Unknown | + + + | Marital Status | | + + + | Gnosticist Affiliation | Unknown | + + + | Race | Unknown | + + + | Ethnic Group | Unknown | + + + Author + + + | Author | [facility] | | | and [place] | + + + | Organization | [facility] | | | and [...] Team Providers + +------+ + | Care Sodium Chlorite Operator Name | Role | Phone | + +------+ + PCP | Unavailable | + +------+ + Encounter Details +--------+ + + + + | Date | Type | Department | Care Team | Description | +--------+ + + + + | 03/01/ | Hospital | [facility] | Gabriel Myrick | Anemia, unspecified | | 2017 - | Encounter | [facility] | MD [address] | type; Current | | | | CARE FLOOR [address] | chronic use of | | 03/02/ | | [address] | [place] [address] | systemic steroids; | | 2017 | | [place], [place] | [phone] | Gastroesophageal | | | | [address] | | reflux disease | | | | [phone] | | without esophagitis; | | | | | | Hypokalemia; | | | | | | Elevated blood | | | | | | pressure reading | +--------+ + + + + Social [...] + + + | Blood Pressure | 142/69 | 03/02/2017 3:42 PM | | | | | PST | | + + + + + | Pulse | 91 | 03/02/2017 3:42 PM | | | | | PST | | + + + + + | Temperature | 36.8 C (98.3 F) | 03/02/2017 3:42 PM | | | | | PST | | + + + + + | Respiratory Rate | 18 | 03/02/2017 3:42 PM | | | | | PST | | + + + + + | Oxygen Saturation | - | - | | + + + + + | Inhaled Oxygen | - | - | | | Concentration | | | | + + + + + | Weight | 74.2 kg (163 lb 9.3 | 03/02/2017 3:42 PM | | | | oz) | PST | | + + + + + | Height | 172.7 cm (5' 8") | 03/02/2017 3:42 PM | | | | | PST | | + + + + + | Body Mass Index | 24.87 | 03/02/2017 3:42 PM | | | | | PST | | + + + + + documented in this encounter Discharge Summaries Latosha Jimenez MD - 03/02/2017 7:06 AM PSTFormatting of this note might be different fro m the original. Discharge Summaries by Latosha Jimenez MD-R2 at 03/02/17 0706 Author: EDE Otto Service: Internal Medicine Author Type: Resident-Y1 Filed: 03/02/17 1325 Date of Service: 03/02/17705 Status: Attested Application Manager: EDE Otto (Resident-Y2) Cosigner: Chace Benson MD at 03/02 1537 Attestation signed by Chace Benson MD at 03/02/17 1537 Patient seen and examined prior to discharge. Potassium level improved. Discussed with Dr. Bocanegra who will perform diverting colostomy on 03/07/17. Prescription for SQ Lovenox give n to patient Last dose of Lovenox 24 hours prior to surgey per Dr. Bocanegra. Patient will a lso follow Dr. Krishna after surgery. I discussed this plan of care at length with the pat ient prior to discharge. I agree with the progress note of Dr. Jimenez. [facility] Service: Hospitalist Resident Discharge Summary Date of Admission: 03/01/2017 Date of Discharge: 03/02/2017 Discharge Provider: Latosha Jimenez MD-R1 Treatment Team: Consulting Physician: Enrique Bocanegra MD Admitting Provider: Gabriel Myrick MD Discharge Diagnoses: Principal Problem: Hypokalemia Active Problems: Crohn's disease (HCC) COPD (chronic obstructive pulmonary disease) Chronic anticoagulation Current chronic use of systemic steroids Anemia On total parenteral nutrition (TPN) Resolved Problems: * No resolved hospital problems. * BRIEF HISTORY OF PRESENTATION: Per Dr. Bocanegra's clinic note: Joel Willingham is a 61 y.o. female with a long history of crohn's disease. She is currently on Humira being seen by Dr. Krishna GI in [place]. Antonia he previously underwent a small bowel resection where roughly 17 inches were removed per the patient. 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 She has a Hx of mesenteric and LE DVT and is currently on coumadin. She also has a previous history of anovaginal and perianal fistulas. 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 She underwent a exam under anesthesia, and placement of a RA and 3 AML se tons and rectal mucosa biopsy on 10/27/15 with the following findings "Right lateral internal opening at dentate line coursing in a high transsphincteric tract. Three internal openings, one at dentate line anterior midline and two proximal to dentate line anterior midline all tract high into the vagina anteriorly." She was recently put on bowel rest by Dr. Krishna and started on TPN as an outpatient and her narcotics were stopped. Her diarrhea has been worsening. She is ready to have the APR (abdominal perineal resection) and just want to have a colostomy. ' HOSPITAL COURSE: She is scheduled for surgery Tuesday with Dr. Bocanegra. During her pre-op workup she was fo und to have severe hypokalemia down to 2.3, she is on TPN and was very surprised by this. C diff negative. WBC was elevated to 25. She was admitted and given potassium replacement as w ell as a general diet. Her leukocytosis has been persistent for some time Surgery was consu lted and recommended eating as well as TPN, switching to Lovenox outpatient until Tuesday and the prepping for surgery. The patient was very agreeable to this plan and was feeling much better today. Upon discharge the patient was eating, drinking, urinating, having bowel movem ents. She was not having fevers, nausea, or vomiting. Prescriptions Prior to Admission Medication Sig Dispense Refill Last Dose gabapentin (NEURONTIN) 300 MG capsule Take 300 mg by mouth 3 (three) times daily. @hs Melatonin 5 MG CHEW Take 10 mg by mouth nightly as needed. Taking metoprolol (LOPRESSOR) 25 MG tablet Take 2 tablets by mouth 2 (two) times daily. 02/10@pm Multiple Vitamins-Minerals (MULTIVITAMIN WITH MINERALS) tablet Take 1 tablet by mouth zoila bae 02/28/2017 omeprazole (PRILOSEC) 40 MG capsule Take 40 mg by mouth 2 (two) times daily. 02/29/20 17@pm oxyCODONE-acetaminophen (PERCOCET) 10-325 MG per tablet Take 1 tablet by mouth every 4 (four) hours as needed for Pain for up to 10 days. 50 tablet 0 predniSONE (DELTASONE) 10 MG tablet Take 15 mg by mouth daily. Indications: 15 mg @1200 promethazine (PHENERGAN) 25 MG tablet Take 25 mg by mouth every 6 (six) hours as needed for Nausea. 02/27/2017 DISCHARGE EXAM Vital Signs: BP 128/59 (BP Location: Right upper arm) | Pulse 85 | Temp 98 F (36.7 C) (Oral) | Re sp 17 | Ht 1.727 m (5' 8") | Wt 74.2 kg (163 lb 9.3 oz) | SpO2 94% | BMI 24.87 kg/m Physical Exam General Appearance: Alert and cooperative, lying in bed with and appears to be in no acute distress. HEENNT: Normocephalic and atraumatic. Hearing grossly intact. No nasal discharge. No trache al deviation. Cardiovascular: Rhythm and rate are regular. No murmurs, gallops or rubs appreciated. Perip heral pulses 2+ and symmetric. No lower extremity edema. Pulmonary/Chest: Lungs are clear to auscultation bilaterally. Effort is normal. Normal john th sounds. Abdominal: Soft, nontender, nondistended. Normoactive bowel sounds. No guarding or rebound tenderness. Musculoskeletal: Normal range of motion. Normal muscular development. Neurological: CN II-XII grossly intact. Oriented to person, place, and time. Skin: Skin is warm and dry. No rash noted. Psychiatric:The patient was able to demonstrate good judgement and reason, without hallucin ations, abnormal affect or abnormal behaviors during the examination. DATA Recent Labs Lab 03/02/1740403/01/171900 WBC 18.55* 25.02* HGB 8.5* 10.1* HCT 28.4* 33.4* PLT 521* 631* Recent Labs Lab 03/02/17 0405 03/01/17 19003/01/17 1723 NA 142 144 143 K 3.5 2.3* 2.3* CL 116* 114* 114* CO2 17* 16* 15* BUN 25 27* 28* CREATININE 0.7 0.78 0.76 PROT 6.4 7.7 8.2 BILITOT 0.6 0.5 0.4 ALT 63 61 64 AST 71* 48* 47* Phosphorus: Lab Results Component Value Date PHOS 2.7 03/02/2017 Recent Labs Lab 03/02/17 0405 MG 2.1 Recent Labs Lab 03/02/17 0405 03/01/17 1901 03/01/17 1723 APTT -- 32 -- INR 1.7 2.1 2.1 Recent Labs Lab 03/02/17 0405 TSH 1.47 Recent Labs Lab 03/01/171900 CKTOTAL 56 CKMBINDEX 4.6 Intake/Output Summary (Last 24 hours) at 03/02/17 1309 Last data filed at 03/02/17 0556 Gross per 24 hour Intake 1435 ml Output 0 ml Net 1435 ml Microbiology: MRSA PCR -positive Radiology X-ray Chest 2 View Frontal & Lateral Result Date: 03/01/2017 1. Mild right basilar atelectasis. 2. Elevated right hemidiaphragm consistent with eventrat ion. 3. No other acute cardiopulmonary abnormality Electronically signed by Santana narayan n 03/01/2017 5:52 PM PLAN Home in stable condition. Disposition: Home Condition: Stable Code Status: DNR/DNI No discharge procedures on file. Follow up: Alireza Krishna MD [address], [address] [address] Call office for appointment. Medication List START taking these medications acetaminophen 325 MG tablet QTY: 30 tablet Refills: 0 Commonly known as: TYLENOL Take 2 tablets by mouth every 6 (six) hours as needed for up to 10 days. enoxaparin 80 MG/0.8ML Soln QTY: 5.6 mL Refills: 0 Commonly known as: LOVENOX Inject 0.7 mLs into the skin every 12 (twelve) hours for 8 doses. metroNIDAZOLE 500 MG tablet QTY: 2 tablet Refills: 0 Commonly known as: FLAGYL Take one 500 mg. Tablet by mouth at 7 pm and take one 500 mg. Tablet by mouth 9 pm the nigh t prior to your procedure. Na sulfate-K sulfate-Mg sulf 17.5-3.13-1.6 GM/180ML Soln QTY: 354 mL Refills: 0 Commonly known as: SUPREP BOWEL PREP KIT Take 12 oz by mouth See Admin Instructions. Please follow your physicians instructions for use the day prior to your colonoscopy. neomycin 500 MG tablet QTY: 4 tablet Refills: 0 Commonly known as: MYCIFRADIN Take two 500 mg tablets by mouth at 7 pm and Take two 500 mg tablets by mouth at 9 pm the n ight prior to your surgical procedure. potassium chloride SA 20 MEQ tablet QTY: 60 tablet Refills: 11 Commonly known as: K-DUR,KLOR-CON Take 1 tablet by mouth 2 (two) times daily. Replaces: potassium chloride 10 MEQ CR capsule scopolamine 1 mg/3days patch QTY: 1 patch Refills: 0 Commonly known as: TRANSDERM-SCOP Apply to hairless area behind the ear the night before your procedure. CONTINUE taking these medications gabapentin 300 MG capsule Refills: 0 Commonly known as: NEURONTIN lactobacillus granules QTY: 60 each Refills: 0 Take 1 packet by mouth 2 (two) times daily. Melatonin 5 MG Chew Refills: 0 metoprolol 25 MG tablet Refills: 0 Commonly known as: LOPRESSOR Take 2 tablets by mouth 2 (two) times daily. multivitamin with minerals tablet Refills: 0 omeprazole 40 MG capsule Refills: 0 Commonly known as: PRILOSEC oxyCODONE-acetaminophen 10-325 MG per tablet QTY: 50 tablet Refills: 0 Commonly known as: PERCOCET Take 1 tablet by mouth every 4 (four) hours as needed for Pain for up to 10 days. predniSONE 10 MG tablet Refills: 0 Commonly known as: DELTASONE promethazine 25 MG tablet Refills: 0 Commonly known as: PHENERGAN You might also be taking other medications not listed above. If you have questions about an y of your other medications, talk to the person who prescribed them or your Primary Care Pro vider. STOP taking these medications potassium chloride 10 MEQ CR capsule Commonly known as: MICRO-K Replaced by: potassium chloride SA 20 MEQ tablet warfarin 6 MG tablet Commonly known as: COUMADIN Where to Get Your Medications These medications were sent to [facility] - [place] - [address], [place] [address] metroNIDAZOLE 500 MG tablet Na sulfate-K sulfate-Mg sulf 17.5-3.13-1.6 GM/180ML Soln neomycin 500 MG tablet scopolamine 1 mg/3days patch These medications were sent to [facility] [address] [place], [place] - [address] [facility] [address] , [place] [address] acetaminophen 325 MG tablet lactobacillus granules potassium chloride SA 20 MEQ tablet You can get these medications from any pharmacy Bring a paper prescription for each of these medications enoxaparin 80 MG/0.8ML Soln Latosha Jimenez MD-R1 03/02/2017 1:09 PM I Thea Hendrix MD, have reviewed this note. [place] in this encounter Medications at Time of [...] + + + +---------+ + + | lactobacillus | Take 1 packet by | 60 each | 0 | 03/02/20 | | | (FLORANEX) | mouth 2 (two) times | | | 17 | | | | daily. | | | | | [...] + + + +---------+ + + | metroNIDAZOLE | Take one 500 mg. | 2 | 0 | 03/02/20 | | | (FLAGYL) 500 MG | Tablet by mouth at 7 | tablet | | 17 | | | tablet | pm and take one 500 | | | | | | | mg. Tablet by mouth | | | | | | | 9 pm the night | | | | | | | prior to your | | | | | | | procedure. | | | | | + + + +---------+ + + | Multiple | Take 1 tablet by | | 0 | 03/01/20 | | | Vitamins-Minerals | mouth daily. | | | 17 | | | (MULTIVITAMIN WITH | | | | | | | MINERALS) tablet | | | | | | + + + +---------+ + + | neomycin 500 mg | Take two 500 mg | 4 | 0 | 03/02/20 | | | tablet | tablets by mouth at | tablet | | 17 | | | | 7 pm and Take two | | | | | | | 500 mg tablets by | | | | | | | mouth at 9 pm the | | | | | | | night prior to your | | | | | | | surgical procedure. | | | | | + + [...] + + + +---------+ + + | scopolamine | Apply to hairless | 1 patch | 0 | 03/02/20 | | | (TRANSDERM-SCOP, 1.5 | area behind the ear | | | 17 | | | MG,) 1 mg/3 days | the night before | | | | | | patch | your procedure. | | | | | + + + +---------+ + + | sodium | Take 12 oz by mouth | 354 mL | 0 | 03/02/20 | | | sulfate-potassium | See Admin | | | 17 | | | sulfate-magnesium | Instructions. Please | | | | | | sulfate (SUPREP | follow your | | | | | | BOWEL PREP KIT) oral | physicians | | | | | | solution | instructions for use | | | | | | | the day prior to | | | | | | | your colonoscopy. | | | | | + + + +---------+ + + | potassium chloride | Take 1 tablet by | 60 | 11 | 03/02/20 | | | (KARLA M20) 20 | mouth 2 (two) times | tablet | | 17 | 8 | | mEq ER tablet | daily. | | | | | + + + +---------+ + + documented as of this encounter Progress Notes Conversion Transaction, Provider Unknown - 03/02/2017 3:58 PM PSTFormatting of this note liz terrazast be different from the original. Nurse Progress Note by Gloria Hernandez RN at 03/02/17 4318 Author: Gloria Hernandez RN Service: (none) Author Type: Registered Nurse Filed: 03/02/17 1600 Date of Service: 03/02/17 1558 Status: Signed Application Manager: Gloria Hernandez RN (Registered Nurse) Discharge instructions given to pt and , all questions answered. VSS. Discharged jena e via private vehicle with . onver roshan Transaction, Provider Unknown - 03/02/2017 12:54 PM PST Case Management by Linh Perez RN at 03/02/17 4257 Author: Linh Perez RN Service: (none) Author Type: Registered Nurse Filed: 03/02/17 1257 Date of Service: 03/02/17 1254 Status: Signed Application Manager: Linh Perez RN (Registered Nurse) Pt to d/c home today with Lovenox. Met with pt and she states she can sewer hand herself Lovenox injections. Faxed script to RX pharmacy for russell check. Notified Marilin with [facility] of d/c. Faxed resumption order to [facility]. Family to trasnport pt home KAMRYN signed Nika Do Patel [facility] - 03/02/2017 12:47 PM PSTFormatting of this note might be different from the or iginal. Progress Notes by Do Hussein RPH at 03/02/17 085 Author: Do Hussein RPH Service: Pharmacy Author Type: Pharmacist Filed: 03/02/17 124 Date of Service: 03/02/171246 Status: Signed Application Manager: Do Hussein RPH (Pharmacist) INITIATION OF Parenteral Nutrition: Smita Willingham 61 y.o. female Height: Ht Readings from Last 1 Encounters: 03/02/17 1.727 m (5' 8") Weight: Wt Readings from Last 1 Encounters: 03/02/17 74.2 kg (163 lb 9.3 oz) Body Mass Index: Body mass index is 24.87 kg/m. [place] Body Weight: 63.9kg Adjusted Body Weight: 68.0kg Creatinine: CREATININE Date Value Ref Range Status 03/02/2017 0.7 0.50 - 1.00 mg/dL Final Estimated CrCl : Serum creatinine: 0.7 mg/dL 03/02/17 0405 Estimated creatinine clearance: 85.1 mL/min Estimated Needs: Basal Energy Expenditure (BEE): 1409kcal BEE x Major Non - Elective Surgery: = 9901-9906 Kcal needed per day Protein Requirements: Infection, Major Surgery, Cancer: 1.3 - 1.6 g/kg/day PN Line: Central Dextrose: 20% Amino Acids: 6% Lipid 20% 250 mL PN Goal Rate: 65 mL/hr PN Rate on Day 1: 25 mL/hr for 24 hours Amount of non-protein calories and grams of protein this provides: 1561 kcal + 93.6gm Lc=395; CO2=17. Initiating TPN with low Cl formula Pharmacy will continue to follow Pharmacist: DO HUSSEIN 03/02/2017 12:43 PM onversio n Transaction, Provider Unknown - 03/02/2017 11:58 AM PSTFormatting of this note might be di fferent from the original. Progress Notes by Honey Gamboa RD at 03/02/17 1679 Author: Honey Gamboa RD Service: (none) Author Type: Registered Dietitian Filed: 03/02/17 7299 Date of Service: 03/02/171157 Status: Signed Application Manager: Honey Gamboa RD (Registered Dietitian) 03/02/17 1136 Subjective Timepoint Admit (Consult: home TPN, wt loss) Pt c/o Pt with hx of Crohn's and chronic diarrhea. She states she has been on TPN for 3 we eks and she has not been eating. Pt currently feeling scared to eat, as she does not want i ncreased diarrhea. Diet Experience Home Nutrition Support TPN from [facility] in [place]: 275 g Dextrose, 90 g AA, 40 g lipi ds, 1800 ml total vol daily. TPN runs 16 hours/day with 1 hour taper up and 1 hour taper do wn. Fluid / Beverage Intake Oral Fluids Amount Drinking fluids ad salvatore; pt drank a little coffee this morning. Liquid Meal Replacement or Supplement Impact Advanced Recovery four times/day per MD. Pt s tates she will try to drink 4/day. She did drink one this morning. Food Intake Amount of Food Pt ate about 25% of her cream of wheat and toast this morning. Type of Food / Meals General diet Parenteral Nutrition Intake Rate/Solution NS at 150 ml/hr Micronutrient Intake Vitamin Intake K Mineral / Element Intake Chloride Nutrition-Focused Physical Findings Digestive System (Mouth to Rectum) Pt with hx of chronic diarrhea. Anthropometrics Height 1.727 m (5' 8") Weight 74.2 kg (163 lb 9.3 oz) Weight Change 100 Weight change BMI 24.9 (wnls). Pt states her wt fluctuates up and down. She is not certai n if she has had any real wt loss. Pt was admitted earlier this month and her wt fluctuated between 74.5-78 kg during that admission. BMI (Calculated) 24.9 Biochemical data, medical tests, and procedures reviewed Biochemical data, medical tests, and procedures reviewed Alk phos 223 (H), AST 71 (H); will continue to monitor. Estimated Energy Needs Total Energy Estimated Needs 2004 - 2375 kcal/day Method for Estimating Needs 27 - 32 kcal/kg admit wt Estimated Protein Needs Total Protein Estimated Needs 89 - 111 g/day Method for Estimating Needs 1.2 - 1.5 g/kg admit wt Recommendations Recommended parenteral nutritional needs for pharmacy Recommend TPN (D20, 6% AA) at 65 ml/h r plus 20% lipids 250 ml daily. This will provide 1935 kcal (26 kcal/kg), 94 g pro (1.3 g/k g), and 1810 ml total vol. Recommended energy needs Continue General diet as tolerated. Continue Impact Advanced Tomas very four times/day per MD. It pt is eating >50% of her meals, may be able to decrease TPN. RD will continue to follow. Nutritional Risk Nutritional risk High Follow up date 03/05/17 onver roshan Main, Provider Unknown - 03/02/2017 11:29 AM PST Case Management by Linh Perez RN at 03/02/17 4874 Author: Linh Perez RN Service: (none) Author Type: Registered Nurse Filed: 03/02/17 1141 Date of Service: 03/02/17 1129 Status: Signed Application Manager: Linh Perez RN (Registered Nurse) 03/02/17 1100 Discharge Planning Evaluation Admitting Diagnosis hypokalemia Readmission Yes-within 14 days Reason for readmission hypokalemia Last discharge disposition Home Needs met at last discharge Yes Picked up discharge Rx medications Yes Started prescribed DC meds Yes Followed up with primary or specialty provider No Understood discharge instructions Yes Assistance available Yes Concerns for meeting needs No Living Arrangements Spouse/significant other Support Systems Spouse/significant other Type of Residence Private residence Independent with ADL's Yes Independent with Mobility Yes Home Care Services No Caregiver after Discharge No Mental Status Oriented Prior functional status indep Resources Financial concerns No Transportation issues No Patient/Family concerns No Prescription Plan Yes Previous home health equipment No Vascular access device No Ostomy/Drains/Appliances No Anticipated Disposition Facility Type Home Met with pt and discussed discharge planning, Pt is a 61 y.o., female . Pt was d/c home on TPN(with [facility]) 02/15, readmitted 03/01. Pt is scheduled to have colostmy surgery on Tuesday. Pt lives in [place] with spouse. Pt is indep with all her ADL's. No use of home O 2, no HD. Pt does use a cane and walker as needed. Pt established on coumadin with [place] [facility]. Patient's PCP is: Dr Davina Cox/[facility]. Pt has appnt on 03/23 to est abls care with this PCP Patient's insurance: medicare/C Coverage concerns: no Medication coverage/concerns: no Rx Community resources utilized / needed: Resume [facility](they are providing skilled nursin g care. No services agency involved at this time). Notified Marilin with [facility] that pt is hospitalized. Assistance in transportation: family Identification of any specific education / training: no Barriers to Discharge / Alternative housing needed: no Anticipated DCP: home Nika Perez RN CM onver roshan Transaction, Provider Unknown - 03/02/2017 10:37 AM PST Progress Notes by Ryan Ariza RN at 03/02/17 1037 Author: Ryan Ariza RN Service: (none) Author Type: Registered Nurse Filed: 03/02/17 1038 Date of Service: 03/02/17 1037 Status: Signed Application Manager: Ryan Ariza RN (Registered Nurse) Infection Prevention Note: Pt currently has a nasal PCR that is positive for MRSA. Contact Precautions are required for this admission. Thank you. Ryan Ariza BSN,CIC onver roshan Transaction, Provider Unknown - 03/01/2017 10:58 PM PST Progress Notes by Hamilton Drummond RPH at 03/01/172257 Author: Hamilton Drummond RPH Service: Pharmacy Author Type: Pharmacist Filed: 03/01/172257 Date of Service: 03/01/172257 Status: Signed Application Manager: Hamilton Drummond RPH (Pharmacist) Note ccl 76.4ml/min meds reviewed pharmacy will follow rdc 2258 onver roshan Transaction, Provider Unknown - 03/01/2017 10:35 PM PST Nurse Progress Note by Mila Dolan RN at 03/01/172234 Author: Mila Dolan RN Service: (none) Author Type: Registered Nurse Filed: 03/02/17 0625 Date of Service: 03/01/172234 Status: Addendum Application Manager: Mila Dolan RN (Registered Nurse) Related Notes: Original Note by Mila Dolan RN (Registered Nurse) filed at 03/02/171 9 3 Pt transported to room 4439, via stretcher. 0620 IV pain meds given x 1, oxycodone x 1. Pt has dietary supplements in room, 1st one g iven this AM. Pt aware of when she needs to drink per Dr. Beal. Otherwise hourly rou nding uneventful. docume nted in this encounter Plan of Treatment Not on filedocumented as of this encounter Procedures + +--------+ + + + | Procedure Name | Priori | Date/Time | Associated Diagnosis | Comments | | | ty | | | | + +--------+ + + + | EXTERNAL LAB: CBC | Routin | 03/02/2017 | | Results for this | | | e | 4:05 AM | | procedure are in the | | | | PST | | results section. | + +--------+ + + + | PROTIME INR | Routin | 03/02/2017 | | Results for this | | | e | 4:05 AM | | procedure are in the | | | | PST | | results section. | + +--------+ + + + | TSH | Routin | 03/02/2017 | | Results for this | | | e | 4:05 AM | | procedure are in the | | | | PST | | results section. | + +--------+ + + + | PHOSPHORUS | Routin | 03/02/2017 | | Results for this | | | e | 4:05 AM | | procedure are in the | | | | PST | | results section. | + +--------+ + + + | MAGNESIUM | Routin | 03/02/2017 | | Results for this | | | e | 4:05 AM | | procedure are in the | | | | PST | | results section. | + +--------+ + + + | COMPREHENSIVE | Routin | 03/02/2017 | | Results for this | | METABOLIC PANEL | e | 4:05 AM | | procedure are in the | | | | PST | | results section. | + +--------+ + + + | HISTORICAL LAB PANEL | Routin | 03/01/2017 | | Results for this | | RESULT | e | 7:01 PM | | procedure are in the | | | | PST | | results section. | + +--------+ + + + | PATHOLOGY CONSULT | Routin | 03/01/2017 | | Results for this | | REQUEST | e | 7:01 PM | | procedure are in the | | | | PST | | results section. | + +--------+ + + + documented in this encounter Results Protime INR (03/02/2017 4:05 AM PST) + + + + + + | Component | Value | Ref Range | Performed | Pathologist | | | | | At | Signature | + + + + + + | INR | 1.7Comment: REFERENCE | | EXTERNAL | | | | RANGE:0.9 - 1.2 | | LAB | | | | NON-ANTICOAGULATED2.0 | | | | | | - 3.0 ALL OTHER | | | | | | THERAPEUTIC | | | | | | INDICATIONS2.5 - 3.5 | | | | | | MECHANICAL HEART VALVES, | | | | | | RECURRENT OR SYSTEMIC | | | | | | EMBOLISMTesting | | | | | | performed at [facility] | | | | | | [facility];[place], [place] | | | | | | [address] | | | | + + + + + + + + | Specimen | + + | Blood specimen | | (specimen) | + + + +---------+ + + | Performing | Address | City/State/Zipcode | Phone Number | | Organization | | | | + +---------+ + + | EXTERNAL LAB | | | | + +---------+ + + External Lab: RAPHAEL (03/02/2017 4:05 AM PST) + + + + + + | Component | Value | Ref Range | Performed | Pathologist | | | | | At | Signature | + + + + + + | WBC | 18.55 (H) | 3.80 - 11.00 | EXTERNAL | | | | | K/uL | LAB | | + + + + + + | RED CELL | 4.04 | 3.70 - 5.10 | EXTERNAL | | | COUNT | | M/uL | LAB | | + + + + + + | Hgb | 8.5 (L) | 11.3 - 15.5 | EXTERNAL | | | | | g/dL | LAB | | + + + + + + | Hematocrit, | 28.4 (L) | 34.0 - 46.0 % | EXTERNAL | | | POC | | | LAB | | + + + + + + | MCV | 70.3 (L) | 80.0 - 100.0 fl | EXTERNAL | | | | | | LAB | | + + + + + + | MCH | 21.0 (L) | 27.0 - 34.0 pg | EXTERNAL | | | | | | LAB | | + + + + + + | MCHC | 29.8 (L) | 32.0 - 35.5 | EXTERNAL | | | | | g/dL | LAB | | + + + + + + | RDW-CV | 60.8 (H) | 37 - 53 fl | EXTERNAL | | | | | | LAB | | + + + + + + | Platelet | 521 (H) | 150 - 400 K/uL | EXTERNAL | | | Count | | | LAB | | | Plasma | | | | | + + + + + + | MPV | 8.0 | fl | EXTERNAL | | | | | | LAB | | + + + + + + | Differentia | MANUAL | | EXTERNAL | | | l Type | | | LAB | | + + + + + + | Segmented | 85 | % | EXTERNAL | | | Neutrophils | | | LAB | | | Manual | | | | | + + + + + + | Lymphocytes | 9 | % | EXTERNAL | | | Manual | | | LAB | | + + + + + + | Monocytes | 2 | % | EXTERNAL | | | Manual | | | LAB | | + + + + + + | Eosinophils | 2 | % | EXTERNAL | | | Manual | | | LAB | | + + + + + + | Basophils | 2 | % | EXTERNAL | | | Manual | | | LAB | | + + + + + + | Absolute | 15.77 (H) | 1.90 - 7.40 | EXTERNAL | | | Neutrophils | | K/uL | LAB | | + + + + + + | Absolute | 1.67 | 1.00 - 3.90 | EXTERNAL | | | Lymphocytes | | K/uL | LAB | | + + + + + + | Absolute | 0.37 | 0.00 - 0.80 | EXTERNAL | | | Monocytes | | K/uL | LAB | | + + + + + + | Absolute | 0.37 | 0.00 - 0.50 | EXTERNAL | | | Eosinophils | | K/uL | LAB | | + + + + + + | Absolute | 0.37 (H) | 0.00 - 0.10 | EXTERNAL | | | Basophils | | K/uL | LAB | | + + + + + + | RBC | 1+ | | EXTERNAL | | | Morphology | Comment: | | LAB | | | | MICRO | | | | | | 2+ | | | | | | POIK | | | | | | 2+ | | | | | | HYPO | | | | | | 2+ | | | | | | ANISO | | | | | | | | | | + + + + + + | Differentia | 1+ JEANNETTE BOONE | | EXTERNAL | | | l Comments | BODIESComment: Testing | | LAB | | | | performed at [facility], [address] | | | | | | [place], | | | | | | [place] [address] | | | | + + + + + + + + | Specimen | + + | Blood specimen | | (specimen) | + + + +---------+ + + | Performing | Address | City/State/Zipcode | Phone Number | | Organization | | | | + +---------+ + + | EXTERNAL LAB | | | | + +---------+ + + TSH (03/02/2017 4:05 AM PST) + + + + + + | Component | Value | Ref Range | Performed | Pathologist | | | | | At | Signature | + + + + + + | TSI | 1.47Comment: Testing | 0.45 - 5.10 | EXTERNAL | | | | performed at [facility], [address] | uIU/mL | LAB | | | | [place], | | | | | | [place] [address] | | | | + + + + + + + + | Specimen | + + | Blood specimen | | (specimen) | + + + +---------+ + + | Performing | Address | City/State/Zipcode | Phone Number | | Organization | | | | + +---------+ + + | EXTERNAL LAB | | | | + +---------+ + + Phosphorus (03/02/2017 4:05 AM PST) + + + + + + | Component | Value | Ref Range | Performed | Pathologist | | | | | At | Signature | + + + + + + | PHOSPHORUS | 2.7Comment: Testing | 2.3 - 4.8 mg/dL | EXTERNAL | | | | performed at [facility], [address] | | LAB | | | | [place], | | | | | | [place] [address] | | | | + + + + + + + + | Specimen | + + | Blood specimen | | (specimen) | + + + +---------+ + + | Performing | Address | City/State/Zipcode | Phone Number | | Organization | | | | + +---------+ + + | EXTERNAL LAB | | | | + +---------+ + + Magnesium (03/02/2017 4:05 AM PST) + + + + + + | Component | Value | Ref Range | Performed | Pathologist | | | | | At | Signature | + + + + + + | Magnesium | 2.1Comment: Testing | 1.7 - 2.4 mg/dL | EXTERNAL | | | | performed at [facility], [address] | | LAB | | | | [place], | | | | | | [place] [address] | | | | + + + + + + + + | Specimen | + + | Blood specimen | | (specimen) | + + + +---------+ + + | Performing | Address | City/State/Zipcode | Phone Number | | Organization | | | | + +---------+ + + | EXTERNAL LAB | | | | + +---------+ + + Comprehensive Metabolic Panel (03/02/2017 4:05 AM PST) + + + + + + | Component | Value | Ref Range | Performed | Pathologist | | | | | At | Signature | + + + + + + | Na | 142 | 135 - 145 | EXTERNAL | | | | | mmol/L | LAB | | + + + + + + | K | 3.5 | 3.5 - 4.9 | EXTERNAL | | | | | mmol/L | LAB | | + + + + + + | Cl | 116 (H) | 99 - 109 mmol/L | EXTERNAL | | | | | | LAB | | + + + + + + | CO2 | 17 (L) | 23 - 32 mmol/L | EXTERNAL | | | | | | LAB | | + + + + + + | Anion Gap | 13 | 5 - 20 mmol/L | EXTERNAL | | | | | | LAB | | + + + + + + | Glucose, | 87 | 65 - 99 mg/dL | EXTERNAL | | | Fasting | | | LAB | | + + + + + + | BUN | 25 | 8 - 25 mg/dL | EXTERNAL | | | | | | LAB | | + + + + + + | Creatinine | 0.7 | 0.50 - 1.00 | EXTERNAL | | | | | mg/dL | LAB | | + + + + + + | BUN/Creatin | 36 | | EXTERNAL | | | ine Ratio | | | LAB | | + + + + + + | Calcium | 8.3 (L) | 8.5 - 10.5 | EXTERNAL | | | | | mg/dL | LAB | | + + + + + + | Protein, | 6.4 | 6.3 - 8.2 g/dL | EXTERNAL | | | Total | | | LAB | | + + + + + + | Albumin | 2.5 (L) | 3.3 - 4.8 g/dL | EXTERNAL | | | | | | LAB | | + + + + + + | Globulin | 3.9 | 1.3 - 4.9 g/dL | EXTERNAL | | | | | | LAB | | + + + + + + | A/G Ratio | 0.6 (L) | 1.0 - 2.4 | EXTERNAL | | | | | | LAB | | + + + + + + | Bilirubin | 0.6 | 0.1 - 1.5 mg/dL | EXTERNAL | | | Total | | | LAB | | + + + + + + | ALP, | 223 (H) | 35 - 115 U/L | EXTERNAL | | | External | | | LAB | | + + + + + + | AST | 71 (H) | 10 - 45 U/L | EXTERNAL | | | | | | LAB | | + + + + + + | ALT | 63 | 10 - 65 U/L | EXTERNAL | | | | | | LAB | | + + + + + + | Estimated | >60Comment: GFR <60: | mL/min/1.73m2 | EXTERNAL | | | GFR | CHRONIC KIDNEY DISEASE, | | LAB | | | | IF FOUND OVER A 3 MONTH | | | | | | PERIOD.GFR <15: KIDNEY | | | | | | FAILURE.FOR | | | | | | AMERICANS, MULTIPLY THE | | | | | | CALCULATED GFR BY | | | | | | 1.210.Testing performed | | | | | | at [facility], [address] | | | | | | [address] [place], | | | | | | [place] [address] | | | | + + + + + + + + | Specimen | + + | Blood specimen | | (specimen) | + + + +---------+ + + | Performing | Address | City/State/Zipcode | Phone Number | | Organization | | | | + +---------+ + + | EXTERNAL LAB | | | | + +---------+ + + HISTORICAL LAB PANEL RESULT (03/01/2017 7:01 PM PST) + + + + + -+ | Component | Value | Ref Range | Performed | Pathologist | | | | | At | Signature | + + + + + -+ | WBC | 25.02 (H) | 3.80 - 11.00 | EXTERNAL | | | | | K/uL | LAB | | + + + + + -+ | RED CELL | 4.64 | 3.70 - 5.10 | EXTERNAL | | | COUNT | | M/uL | LAB | | + + + + + -+ | Hgb | 10.1 (L) | 11.3 - 15.5 | EXTERNAL | | | | | g/dL | LAB | | + + + + + -+ | Hematocrit, | 33.4 (L) | 34.0 - 46.0 % | EXTERNAL | | | POC | | | LAB | | + + + + + -+ | MCV | 72.1 (L) | 80.0 - 100.0 fl | EXTERNAL | | | | | | LAB | | + + + + + -+ | MCH | 21.8 (L) | 27.0 - 34.0 pg | EXTERNAL | | | | | | LAB | | + + + + + -+ | MCHC | 30.2 (L) | 32.0 - 35.5 | EXTERNAL | | | | | g/dL | LAB | | + + + + + -+ | RDW-CV | 58.2 (H) | 37 - 53 fl | EXTERNAL | | | | | | LAB | | + + + + + -+ | Platelet | 631 (H) | 150 - 400 K/uL | EXTERNAL | | | Count | | | LAB | | | Plasma | | | | | + + + + + -+ | MPV | 7.8 | fl | EXTERNAL | | | | | | LAB | | + + + + + -+ | Differentia | MANUAL | | EXTERNAL | | | l Type | | | LAB | | + + + + + -+ | Segmented | 63 | % | EXTERNAL | | | Neutrophils | | | LAB | | | Manual | | | | | + + + + + -+ | Lymphocytes | 21 | % | EXTERNAL | | | Manual | | | LAB | | + + + + + -+ | % Atypical | 9 | % | EXTERNAL | | | Lymphocytes | | | LAB | | + + + + + -+ | Monocytes | 5 | % | EXTERNAL | | | Manual | | | LAB | | + + + + + -+ | Eosinophils | 2 | % | EXTERNAL | | | Manual | | | LAB | | + + + + + -+ | Absolute | 15.77 (H) | 1.90 - 7.40 | EXTERNAL | | | Neutrophils | | K/uL | LAB | | + + + + + -+ | Absolute | 5.25 (H) | 1.00 - 3.90 | EXTERNAL | | | Lymphocytes | | K/uL | LAB | | + + + + + -+ | Absolute | 2.25 (H) | K/uL | EXTERNAL | | | Atypical | | | LAB | | | Lymphocytes | | | | | + + + + + -+ | Absolute | 1.25 (H) | 0.00 - 0.80 | EXTERNAL | | | Monocytes | | K/uL | LAB | | + + + + + -+ | Absolute | 0.50 | 0.00 - 0.50 | EXTERNAL | | | Eosinophils | | K/uL | LAB | | + + + + + -+ | Platelet | INCREASED | | EXTERNAL | | | Estimate | | | LAB | | + + + + + -+ | RBC | NORMAL PLT MORPH | | EXTERNAL | | | Morphology | Comment: | | LAB | | | | 2+ | | | | | | ANISO | | | | | | 2+ | | | | | | HYPO | | | | | | 2+ | | | | | | MICRO | | | | | | 1+ | | | | | | TARGET | | | | | | 1+ | | | | | | TEARDROP | | | | | | 1+ | | | | | | SCHISTOS | | | | | | | | | | + + + + + -+ | Differentia | ANTONIO BOONE BODIES | | EXTERNAL | | | l Comments | SEEN | | LAB | | + + + + + -+ | Na | 144 | 135 - 145 | EXTERNAL | | | | | mmol/L | LAB | | + + + + + -+ | K | 2.3 (LL)Comment: CALLED | 3.5 - 4.9 | EXTERNAL | | | | PHYSICIANREAD BACK | mmol/L | LAB | | | | RESULTS VERIFIED | | | | | | YOGESH ED @ [address] [facility] | | | | | | DR YOGESH SCHERER @ 1941 [facility] | | | | | | | | | | + + + + + -+ | Cl | 114 (H) | 99 - 109 mmol/L | EXTERNAL | | | | | | LAB | | + + + + + -+ | CO2 | 16 (L) | 23 - 32 mmol/L | EXTERNAL | | | | | | LAB | | + + + + + -+ | Anion Gap | 16 | 5 - 20 mmol/L | EXTERNAL | | | | | | LAB | | + + + + + -+ | Glucose, | 106 (H) | 65 - 99 mg/dL | EXTERNAL | | | Fasting | | | LAB | | + + + + + -+ | BUN | 27 (H) | 8 - 25 mg/dL | EXTERNAL | | | | | | LAB | | + + + + + -+ | Creatinine | 0.78 | 0.50 - 1.00 | EXTERNAL | | | | | mg/dL | LAB | | + + + + + -+ | BUN/Creatin | 35 | | EXTERNAL | | | ine Ratio | | | LAB | | + + + + + -+ | Calcium | 8.9 | 8.5 - 10.5 | EXTERNAL | | | | | mg/dL | LAB | | + + + + + -+ | Protein, | 7.7 | 6.3 - 8.2 g/dL | EXTERNAL | | | Total | | | LAB | | + + + + + -+ | Albumin | 3.0 (L) | 3.3 - 4.8 g/dL | EXTERNAL | | | | | | LAB | | + + + + + -+ | Globulin | 4.8 | 1.3 - 4.9 g/dL | EXTERNAL | | | | | | LAB | | + + + + + -+ | A/G Ratio | 0.6 (L) | 1.0 - 2.4 | EXTERNAL | | | | | | LAB | | + + + + + -+ | Bilirubin | 0.5 | 0.1 - 1.5 mg/dL | EXTERNAL | | | Total | | | LAB | | + + + + + -+ | ALP, | 246 (H) | 35 - 115 U/L | EXTERNAL | | | External | | | LAB | | + + + + + -+ | AST | 48 (H) | 10 - 45 U/L | EXTERNAL | | | | | | LAB | | + + + + + -+ | ALT | 61 | 10 - 65 U/L | EXTERNAL | | | | | | LAB | | + + + + + -+ | Estimated | >60Comment: GFR <60: | mL/min/1.73m2 | EXTERNAL | | | GFR | CHRONIC KIDNEY DISEASE, | | LAB | | | | IF FOUND OVER A 3 MONTH | | | | | | PERIOD.GFR <15: KIDNEY | | | | | | FAILURE.FOR | | | | | | AMERICANS, MULTIPLY THE | | | | | | CALCULATED GFR BY 1.210. | | | | | | | | | | + + + + + -+ | CK, Total | 56 | 30 - 240 U/L | EXTERNAL | | | | | | LAB | | + + + + + -+ | INR | 2.1Comment: REFERENCE | | EXTERNAL | | | | RANGE:0.9 - 1.2 | | LAB | | | | NON-ANTICOAGULATED2.0 | | | | | | - 3.0 ALL OTHER | | | | | | THERAPEUTIC | | | | | | INDICATIONS2.5 - 3.5 | | | | | | MECHANICAL HEART VALVES, | | | | | | RECURRENT OR SYSTEMIC | | | | | | EMBOLISM | | | | + + + + + -+ | aPTT, | 32 | 23 - 32 seconds | EXTERNAL | | | Patient | | | LAB | | + + + + + -+ | CK-MB | 2.6 | 0.5 - 3.6 ng/mL | EXTERNAL | | | | | | LAB | | + + + + + -+ | CK-MB Index | 4.6Comment: CK INDEX | | EXTERNAL | | | | INTERPRETATION: | | LAB | | | | MMB ng/mL | | | | | | | | | | | |CK INDEX INTERPRETATION: | | | | | | MMB ng/mL | | | | | | | | | | + + + + + -+ + + | Specimen | + + | | + + + +---------+ + + | Performing | Address | City/State/Zipcode | Phone Number | | Organization | | | | + +---------+ + + | EXTERNAL LAB | | | | + +---------+ + + PATHOLOGY CONSULT REQUEST (03/01/2017 7:01 PM PST) + + + + + + | Component | Value | Ref Range | Performed | Pathologist | | | | | At | Signature | + + + + + + | Pathologist | Comment: Review of CBC | | EXTERNAL | | | Review 1 | collected 03/01/2017. I | | LAB | | | | agree with the cell | | | | | | counts. The presence of | | | | | | leukocytosis is | | | | | | confirmed. The | | | | | | neutrophils show no | | | | | | toxic changes. No | | | | | | circulating blasts or | | | | | | other cells suspicious | | | | | | for a neoplastic process | | | | | | are identified. | | | | | | Reactive appearing | | | | | | lymphocytes and | | | | | | monocytes are present. | | | | | | The anemia is | | | | | | hypochromic and | | | | | | microcytic, consistent | | | | | | with iron deficiency or | | | | | | chronic disease. There | | | | | | are no schistocytes or | | | | | | other evidence of | | | | | | peripheral destruction. | | | | | | There is moderate | | | | | | reticulocyte response, | | | | | | given the degree of | | | | | | anemia. The platelets | | | | | | are increased in number. | | | | | | The history of Crohn's | | | | | | disease and fistulas is | | | | | | noted. Dr. Raphael Yee | | | | | | 03/02/2017 BES/emb | | | | | | Testing performed at | | | | | | [facility] [place] [address] | | | | | | [facility];[place] [address] | | | | + + + [...] + | Diagnosis | + + | Anemia, unspecified type | + + | Current chronic use of systemic steroids | + + | Gastroesophageal reflux disease without esophagitis Esophageal reflux | + + | Hypokalemia Hypopotassemia | + + | Elevated blood pressure reading Elevated blood pressure reading without diagnosis of | | hypertension | + + documented in this encounter Additional Health Concerns + + + + | Infection | Noted Time | Resolved Time | + + + + | Methicillin-resistant Staphylococcus aureus | 03/02/2017 12:00 AM | | | | PDT | | + + + + documented as of this encounter
--- OUTSIDE RECORDS SUMMARY | ~2019-03-09 | XMS | Encounter Summary ---
Demographics + + + | Address | [address] | | | [place] [address] | + + + | Home Phone | | + + + | Preferred Language | Unknown | + + + | Marital Status | | + + + | Islam Affiliation | Unknown | + + + | Race | Unknown | + + + | Ethnic Group | Unknown | + + + Author + + + | Author | [facility] | | | and [place] | + + + | Organization | [facility] | | | [...] Team Providers + +------+ + | Care Reshipping Clerk Name | Role | Phone | + +------+ + PCP | Unavailable | + +------+ + Encounter Details +--------+ + + + + | Date | Type | Department | Care Team | Description | +--------+ + + + + | 09/08/ | Orders Only | [facility] | Conversion | | | 2016 | | CONVERSION [address]P [address] | Transaction, | | | | | [address] | Provider Unknown | | | | | [place], [place] | [phone] | | | | | [address] | | | | | | [phone] | | | +--------+ + + + [...]
--- OUTSIDE RECORDS SUMMARY | ~2019-03-09 | XMS | Encounter Summary ---
Demographics + + + | Address | [address] | | | [place] [address] | + + + | Home Phone | | + + + | Preferred Language | Unknown | + + + | Marital Status | | + + + | Bahai Affiliation | Unknown | + + + | Race | Unknown | + + + | Ethnic Group | Unknown | + + + Author + + + | Author | [facility] | | | and [place] | + + + | Organization | [facility] | | [...] Team Providers + +------+ + | Care Eeg Technician Name | Role | Phone | [...] | | | | | [place] | [phone] | | | | | [address] | | | | | | [phone] | | | +--------+ + + + [...]
--- OUTSIDE RECORDS SUMMARY | ~2019-03-09 | XMS | Encounter Summary ---
Demographics + + + | Address | [address] | | | [place] [address] | + + + | Home Phone | | + + + | Preferred Language | Unknown | + + + | Marital Status | | + + + | Jehovah'S Witness Affiliation | Unknown | + + + | Race | Unknown | + + + | Ethnic Group | Unknown | + + + Author + + + | Author | [facility] | | | and [place] | + + + | Organization | [facility] | | | [...] Team Providers + +------+ + | Care Cutter And Paster Press Clippings Name | Role | Phone | + +------+ + PCP | Unavailable | + +------+ + Encounter Details +--------+ + + + + | Date | Type | Department | Care Team | Description | +--------+ + + + + | 03/02/ | Orders Only | [facility] | Enrique Bocanegra, | | | 2016 | | GENERAL SURGERY [address] | MD [address] | | | | | [address] | [address] | | | | | [place], [place] | [place] [address] | | | | | [address] | [phone] | | | | | [phone] | | | +--------+ + + + [...]
--- OUTSIDE RECORDS SUMMARY | ~2019-03-09 | XMS | Encounter Summary ---
Demographics + + + | Address | [address] | | | [place] [address] | + + + | Home Phone | | + + + | Preferred Language | Unknown | + + + | Marital Status | | + + + | Rastafari Affiliation | NRP | + + + | Race | White | + + + | Ethnic Group | Not or | + + + Author + + + | Author | [facility] | + + + | Organization | [facility] | + + + | Address | Unknown | + + + | Phone | Unavailable | + + + Support + + + + + | Name | Relationship | Address | Phone | + + + + + | Kole Willingham | [place] | [address] | | | | | [place], [place] | | | | | [address] | | + + + + + | Cami Sawyer | ECON | Unknown | | + + + + + Care Team Providers + +------+ + | Care Rabbit Fancier Name | Role | Phone | + [...] | | | | | Procedures | [place], [place] | [facility] | | | | | CONSULT TO | [address] | for Health | | | | | GI PROCEDURE | Phone: | and Healing, | | | | | UNIT: | [phone] | [address] | | | | | FLEXIBLE | Fax: | [place], [place] | | | | | [facility] | [phone] | [address] | | | | | [place] | | Phone: | | | | | [facility] | | [phone] | | | | | Y,BIOPSY | | Fax: | | | | | | | [phone] | +--------+--------+ + + + + Reason [...] schedule tests | | 2016 | | [place] [facility] [address] | [address] | | | | | [address] | [address] [facility], | | | | | Mailcode: [place] | [place] [address] | | | | | [facility] and | [phone] | | | | | [place] [address] | | | | | | [place], [place] | | | | | | [address] | | | | | | [phone] | | | +--------+ + + + [...]
--- OUTSIDE RECORDS SUMMARY | ~2019-03-09 | XMS | Encounter Summary ---
Demographics + + + | Address | [address] | | | [place] [address] | + + + | Home Phone | | + + + | Preferred Language | Unknown | + + + | Marital Status | | + + + | Episcopalian Affiliation | Unknown | + + + | Race | Unknown | + + + | Ethnic Group | Unknown | + + + Author + + + | Author | [facility] | | | and [place] | + + + | Organization | [facility] | | | [...] Team Providers + +------+ + | Care Home Energy Consultant Supervisor Name | Role | Phone | + +------+ + PCP | Unavailable | + +------+ + Encounter Details +--------+ + + + + | Date | Type | Department | Care Team | Description | +--------+ + + + + | 11/05/ | Hospital | [facility] | Gina Haines DO | Chest pain, | | 2015 - | Encounter | [facility] | [address] | unspecified chest | | | | CARE FLO[address] | [place] [address] | pain type; | | 11/10/ | | [address] | [phone] | Pyelonephritis; | | 2014 | | [place], [place] | | Acute nonintractable | | | | [address] | | headache, | | | | [phone] | | unspecified headache | | | | | | type; Leukocytosis; | | | | | | Somnolence; | | | | | | Debility, | | | | | | unspecified; | | | | | | Essential | | | | | | hypertension | +--------+ + + + + Social [...] documented as of this encounter Discharge Summaries Rosmery Oden MD - 11/10/2014 10:08 AM PDT Discharge Summaries by Rosmery Oden MD at 11/10/14 1008 Author: Rosmery Oden MD Service: Hospitalist Author Type: Physician Filed: 11/12/14 010 Date of Service: 11/10/141007 Status: Signed Leather Belt Loop Cutter: Rosmery Oden MD (Physician) [facility] Service: Hospitalist Discharge Summary Date of Admission: 11/05/2014 Date of Discharge: 11/10/2014, 2 PM Discharge Provider: ROSMERY ODEN MD Treatment Team: Consulting Physician: Raphael Turner DO Admitting Provider: Gina Haines DO Discharge Diagnoses: Principal Problem (Resolved): Sepsis(995.91) (HCC) Active Problems: Hypertension Immunocompromised state (HCC) Crohn disease (HCC) Resolved Problems: Encephalopathy acute Diarrhea Delirium Urinary tract infection, site not specified Debility, unspecified Dehydration Hyponatremia Procedures: * No surgery found * Significant Diagnostic Studies: CBC, CMP, MRI BRAIN BRIEF HISTORY OF PRESENTATION: Mackenzie Willingham is a 59 y.o. female with past medical history of COPD, Crohn's Disease, HTN, Hi story of Spelnic Vein Thrombosis and Immunosuppression due to Steroids and Remicade who was admitted as a transfer from [facility] due to sepsis and altered mental status. Apparently, she developed nausea, vomiting and diarrhea for four days and was very lethargic . Her continued to give all her medications including narcotics Oxycodone Morphine s ulfate. Her labs there showed leukocytosis and findings of UTI. She was started IV fluids an d given one dose of Zosyn, Flagyl, Vancomycin and she was then transferred to [facility]. Upon arr ival she was febrile and labs showed WBC of 26 while BMP revealed hyponatremia with Na of 12 8. A spinal tap was done which was stable without signs of meningitis. ID services was cons ulted and Dr. Turner initially saw and recommended Ceftriaxone BID then changed to daily. An M RI of the brain was also done which showed supratentorial, pontine, and cerebellar white mat ter lesions concerning for demyelinating process such as multiple sclerosis. MS panel was se nt and MRI results were discussed with Dr. Boyle but not officially consulted who recommend ed to repeat MRI with contrast prior to her discharge and out patient follow up. Patient did fair with hydration and antibiotics. Her mentation started to improve but then she developed diarrhea due to chronic Chron's disease. Stools were checked for C. Difficile toxins which were negative. Since her mental staus was stable the home Morphine and Oxycodon e were resume with caution. She was also kept on Phenergan which helped in nausea symptoms. Dr. Mas then followed and recommended to start Flagyl but patient refused to take due to side effects. The IV antibiotics were eventually discontinued and urine cultures remained ne gative. Her BP was elevated off and on and home Metoprolol and Lisinopril dose was adjusted. PT was involved due to deconditioning and she was fair in her mobility. An MRI of the brain was repeated with contrast and some non specific findings were again noted without any enha nced lesions. She did not have any neurologic deficits, vision problems or gait instability. Dr. Boyle recommended that she should follow up with a Neurologist on an out patient basis to discuss the MS panel results and also routine evaluation. This was discussed in detail w ith the patient and she was encouraged to follow up with PCP. Her subsequent labs showed imp rovement in leukocytosis but they remained elevated due to chronic steroid use. Patient was feeling better and was back to her baseline functional status. She is now discharged in a s table condition. Events Overnight: Patient seen and examined. Overnight events noted. Patient reported feeling better and impo rved. The nausea, vomiting and diarrhea had resolved at this time. Denied chest pains or suzette rtness of breaths. Feeling fatigued and weak but slowly improving. No abdominal pain, appeti te was improving. Remained afebrile. Allergies Allergen Reactions Demerol [Meperidine] Other (See Comments) Unknown Erythromycin Other (See Comments) unknown Levofloxacin Other (See Comments) tendinitis Reglan [Metoclopramide] Agitation Unknown Penicillins Nausea and Vomiting DISCHARGE EXAM Vital Signs: BP 140/63 mmHg | Pulse 83 | Temp(Src) 98.2 F (36.8 C) (Oral) | Resp 16 | Ht 1.753 m (5' 9") | Wt 77.3 kg (170 lb 6.7 oz) | BMI 25.15 kg/m2 | SpO2 94% | ? No Physical Exam Constitutional: She appears well-developed and well-nourished. No distress. HENT: Head: Normocephalic and atraumatic. Right Ear: External ear normal. Left Ear: External ear normal. Nose: Nose normal. Mouth/Throat: Oropharynx is clear and moist. Eyes: Conjunctivae and EOM are normal. Pupils are equal, round, and reactive to light. Righ t eye exhibits no discharge. Left eye exhibits no discharge. Neck: Normal range of motion. Neck supple. No JVD present. No tracheal deviation present. N o thyromegaly present. Cardiovascular: Normal rate and regular rhythm. Exam reveals no friction rub. No murmur heard. Pulmonary/Chest: Effort normal and breath sounds normal. No stridor. No respiratory distres s. She has no wheezes. Abdominal: Soft. Bowel sounds are normal. She exhibits no distension and no mass. There is no tenderness. There is no guarding. Musculoskeletal: Normal range of motion. She exhibits no edema or tenderness. Neurological: She is alert. No cranial nerve deficit. She exhibits normal muscle tone. Coor dination normal. Skin: Skin is warm and dry. No rash noted. She is not diaphoretic. No erythema. No pallor. Psychiatric: Her behavior is normal. Judgment and thought content normal. Dysphoric affect with adequate mood reactivity. Vitals reviewed. DATA Recent Results (from the past 24 hour(s)) Protime-INR Collection Time: 11/10/14 4:53 AM Result Value Ref Range INR 1.9 CBC w/no Diff Collection Time: 11/10/14 4:53 AM Result Value Ref Range WBC 15.45 (H) 3.80 - 11.00 K/uL RBC 3.74 3.70 - 5.10 M/uL HGB 11.3 11.3 - 15.5 g/dL HCT 35.4 34.0 - 46.0 % MCV 94.7 80.0 - 100.0 fl MCH 30.3 27.0 - 34.0 pg MCHC 32.0 32.0 - 35.5 g/dL RDW SD 59.5 (H) 37 - 53 fl PLT 393 150 - 400 K/uL MPV 8.4 fl PLAN Follow up with your primary care physician in 4 days for a routine evaluation as scheduled. Discuss with your primary care physician about referral to a Wildland Firefighter at [facility] for further evaluation of Chohn's Disease. Discuss with your primary physician about referral to a Neurologist for non specific findin gs on MRI of the brain. Low salt diet for better blood pressure control. Take the current list of medications as prescribed including adjusted dose of Metoprolol an d Lisinopril Continue to work on dietary modifications and healthy life style. Please return to the nearest ER if develops mental status changes, confusion, leg weakness, blurring of vision. Disposition: Home Condition: Stable Code Status: Full Code Discharge Instructions Diet Low Sodium Activity as Tolerated Follow up: Neel Fernandes MD [address] [place] [address] [place] [address] In 4 days As scheduled. Medication List CHANGE how you take these medications lisinopril 20 MG tablet Refills: 0 Commonly known as: ZESTRIL Take 1 tablet by mouth 2 (two) times daily. What changed: when to take this metoprolol 25 MG tablet Refills: 0 Commonly known as: LOPRESSOR Take 2 tablets by mouth 2 (two) times daily. What changed: how much to take potassium chloride SA 20 MEQ tablet Refills: 0 Commonly known as: K-DUR,KLOR-CON What changed: Another medication with the same name was removed. Continue taking this medi cation, and follow the directions you see here. CONTINUE taking these medications cyanocobalamin 1000 MCG/ML injection Refills: 0 LORazepam 0.5 MG tablet Refills: 0 Commonly known as: ATIVAN morphine 15 MG tablet QTY: 150 tablet Refills: 0 Commonly known as: MSIR Take 1 tablet by mouth 5 (five) times daily. PRN omeprazole 40 MG capsule Refills: 0 Commonly known as: PRILOSEC oxyCODONE-acetaminophen 7.5-325 MG per tablet QTY: 60 tablet Refills: 0 Commonly known as: PERCOCET Take 1-2 tablets by mouth every 8 (eight) hours as needed for Pain. 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 You may get the following medications from any pharmacy - morphine 15 MG tablet - oxyCODONE-acetaminophen 7.5-325 MG per tablet Information on where to get these meds is not yet available. Ask your nurse or doctor. - lisinopril 20 MG tablet - metoprolol 25 MG tablet Discharge took more than 35 minutes, to include final examination, discussion of admission, and preparation of prescriptions, instructions for on-going care, follow-up and documentati on of discharge summary. ROSMERY ODEN MD 11/10/2014 documented in th is encounter Medications at [...] + documented as of this encounter Progress Rosmery Gonzalez MD - 11/09/2014 2:46 PM PDT Progress Notes by Rosmery Oden MD at 11/09/14 1446 Author: Rosmery Oden MD Service: Hospitalist Author Type: Physician Filed: 11/09/14 3917 Date of Service: 11/09/141445 Status: Signed Leather Belt Loop Cutter: Rosmery Oden MD (Physician) [facility] Service: Hospitalist Progress Note Mackenzie Willingham 59 y.o. [id number] - female Neel Fernandes (General) Hospital Day: LOS: 4 days SUBJECTIVE Patient Summary: Patient is a 59 year old female with past medical history of COPD, Crohn's Disease, HTN, Hi story of Spelnic Vein Thrombosis and Immunosuppression due to Steroids and Remicade who was admitted as a transfer from [facility] due to sepsis and altered mental status. Apparently, she developed nausea, vomiting and diarrhea for four days and was very lethargic . Her has been giving all her medications including narcotics Oxycodone Morphine sul fate. Her labs there showed leukocytosis and findings of UTI. She was started IV fluids and given one dose of Zosyn, Flagyl and Vancomycin. She was then transferred to [facility], upon arriv al she was febrile and labs showed WBC of 26 while BMP revealed hyponatremia with Na of 128. A spinal tap was done which was stable without signs of meningitis. ID services was consult ed and Dr. Turner initially saw and recommended Ceftriaxone BID then changed to daily. An MRI of the brain was also done which showed supratentorial, pontine, and cerebellar white matter lesions concerning for demyelinating process such as multiple sclerosis. MS panel was sent and MRI results were briefly discussed with Dr. Boyle but not officially consulted who alan mmended to repeat MRI with contrast prior to her discharge and out patient follow up. Events Overnight: Patient seen and examined. Overnight events noted. Patient reported feeling improved than p revious days. The nausea, vomiting and diarrhea has improved after starting oral Morphine at home dosages. Denied chest pains or shortness of breaths. Feeling fatigued and weak but slo wly improving. No abdominal pain, appetite remained low but slowly improving. Remained afebr ile. Scheduled Medications acetaminophen 1,000 mg Oral Once famotidine 20 mg Oral BID Or famotidine 20 mg Intravenous BID heparin (porcine) 5000 unit/0.5mL 5,000 Units Subcutaneous Q12H lisinopril 20 mg Oral BID Magnesium Chloride 1 tablet Oral Daily metoprolol 50 mg Oral BID morphine 15 mg Oral 5x Daily pantoprazole 40 mg Oral QAM AC potassium chloride 40 mEq Oral Once predniSONE 15 mg Oral Daily with breakfast promethazine 50 mg Oral 4 times per day sodium bicarbonate buffer 5 mL Infiltration Once sodium bicarbonate buffer 5 mL Infiltration Once tamsulosin 0.4 mg Oral after dinner warfarin 6 mg Oral Daily Continuous Infusions sodium chloride (IV) 110 mL/hr at 11/09/14 0907 PRN Medications acetaminophen OR acetaminophen, morphine OR morphine OR morphine, ondansetron * *OR ondansetron, ondansetron, oxyCODONE-acetaminophen AND oxyCODONE, polyethylene glyc ol, promethazine, sodium bicarbonate buffer, sodium chloride 0.9 %, zolpidem Allergy: Allergies Allergen Reactions Demerol [Meperidine] Other (See Comments) Unknown Erythromycin Other (See Comments) unknown Levofloxacin Other (See Comments) tendinitis Reglan [Metoclopramide] Agitation Unknown Penicillins Nausea and Vomiting OBJECTIVE Vital Signs: BP 174/74 mmHg | Pulse 74 | Temp(Src) 98.4 F (36.9 C) (Oral) | Resp 16 | Ht 1.753 m (5' 9") | Wt 77.61 kg (171 lb 1.6 oz) | BMI 25.26 kg/m2 | SpO2 93% | ? No I&O Detailed Table: I/O last 3 completed shifts: In: 7752 [P.O.:1240; I.V.:6437; IV Piggyback:75] Out: 3500 [Urine:3500] Weight change: 2.61 kg (5 lb 12.1 oz) Hemodynamics Last 24hrs: Examination: Constitutional: Patient is alert and oriented. Appears frail but not in acute distress. HEENT: Head: Normocephalic and Atraumatic. Nose: Nose normal. Mouth/Throat: Oropharynx is clear and moist. Eyes: No conjunctiva injection. EOM Intact. PERRLA. No scleral icterus. Neck: Neck supple. No JVD present. No tracheal deviation present. No thyromegaly Cardiovascular: RRR, no murmur heard and no friction rub. Pulmonary/Chest: Symmetrical chest expansion, + Few rales and crackles at bases. Abdominal: Soft, BS present, no distension, no ascites. No rebound tenderness and no guardi ng. Musculoskeletal: Moving all limbs. No joint tenderness. No pedal edema. Neurological: No focal neurologic deficits. + Confusion, No CN deficits. Skin: Skin is warm and dry. No rash noted. No erythema. No pallor. Psychiatric: No psychosis, mentation improved but still has dysphoric affect. Judgment is f air. LABS: Recent Results (from the past 24 hour(s)) Protime-INR Collection Time: 11/09/14 3:15 AM Result Value Ref Range INR 1.6 CBC w/no Diff Collection Time: 11/09/14 3:15 AM Result Value Ref Range WBC 15.41 (H) 3.80 - 11.00 K/uL RBC 3.75 3.70 - 5.10 M/uL HGB 11.2 (L) 11.3 - 15.5 g/dL HCT 36.1 34.0 - 46.0 % MCV 96.2 80.0 - 100.0 fl MCH 30.0 27.0 - 34.0 pg MCHC 31.2 (L) 32.0 - 35.5 g/dL RDW SD 58.6 (H) 37 - 53 fl PLT 391 150 - 400 K/uL MPV 8.6 fl Comprehensive metabolic panel Collection Time: 11/09/14 3:15 AM Result Value Ref Range SODIUM 137 135 - 143 mmol/L POTASSIUM 3.4 (L) 3.5 - 4.9 mmol/L CHLORIDE 109 99 - 109 mmol/L CO2 20 (L) 23 - 32 mmol/L ANION GAP AGAP 11 5 - 20 mmol/L GLUCOSE 74 65 - 99 mg/dL BUN 8 8 - 25 mg/dL CREATININE 0.57 0.50 - 1.00 mg/dL BUN/CREAT 14 CALCIUM 8.5 8.5 - 10.5 mg/dL TOTAL PROTEIN 5.9 (L) 6.3 - 8.2 g/dL Albumin 2.7 (L) 3.6 - 5.0 g/dL GLOBULIN 3.2 1.3 - 4.9 g/dL A/G 0.8 (L) 1.0 - 2.4 TBIL 0.4 0.1 - 1.5 mg/dL ALK PHOS 137 (H) 35 - 115 U/L AST 13 10 - 45 U/L ALT 13 10 - 65 U/L EGFR >60 >60 mL/min/1.73m2 MRI BRAIN IMPRESSION: 1. Supratentorial, pontine, and cerebellar white matter lesions, as above. These may be due to a demyelinating process such as multiple sclerosis. Clinically correlate. 2. No evidence of acute intracranial infarct, hemorrhage, or mass. 3. No evidence of flow-limiting intracranial arterial stenosis or aneurysm. LEM LIST Principal Problem: Sepsis(995.91) ([facility]) Active Problems: Diarrhea Urinary tract infection, site not specified Debility, unspecified Hypertension Demyelinating changes in brain ([facility]) Immunocompromised state ([facility]) ASSESSMENT & PLAN Sepsis: Stable and improved with antibiotics. Mild persistent leukocytosis likely due to S teroid use. Will continue IV Ceftriaxone and Dr. Mas plans to switch to oral antibiotic t gloria. Will follow CBC and ID services recommendations. Demyelinating Disease: Possible but not daignosed yet. This is based on MRI brain findings of supratentorial, pontine, and cerebellar white matter lesions concerning for possible dem yelinating process. MS panel is sent and results are pending at this time. Will repeat MRI w ith contrast today and follow results. Immunocompromised State: This is due to immune modulating agents and steroids. Stable, con tinue IV antibiotics and follow cultures. UTI NOS: Cultures remains negative so far. Will continue IV Ceftriaxone as scheduled and f jonna Mas's recommendations. Hypertension: BP seems to be stable with mild variations. Continue Metoprolol and change L isinopril to BID and monitor hemodynamics. Diarrhea: Now improving with oral narcotics. Will continue Morphine and monitor progress. Debility NOS: Multifactorial, will involve PT services when medically stable. DVT prophylaxis with SCD's, Coumadin and S/C Heparin till INR is therapeutic. Discharge plans when stable and improved in 1 to 2 days. Spent more than 30 minutes reviewing patient's labs, diagnostic tests, examination of patie nt, discussing plan of care with patient helped in coordination of care and answered their q uestions. ROSMERY ODEN MD 11/09/2014 onversion Trans action, Provider Unknown - 11/09/2014 2:15 PM PDT Therapy Progress Note by Christel Camacho PT at 11/09/14 1415 Author: Christel Camcaho PT Service: (none) Author Type: Physical Therapist Filed: 11/09/14 6916 Date of Service: 11/09/145 Status: Signed Leather Belt Loop Cutter: Christel Camacho PT (Physical Therapist) 11/09/14 1415 PT Last Visit PT Received On 11/09/14 Reason for Treatment Deconditioning;Other (comment) (acute encephalopathy, debrile, chronic diarrhea-Crohn's dx ) Requires PT Follow Up Awaiting tx order Follow up PT Only? 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 s/p acute encephalopathy, febrile, chronic diarrhea-Crohn's dx. Extended time required for pt. 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 She indicates that she has worked really hard & now only has proprioceptive/occasi onal Lknee buckling issues as a result. Pt. Junior w/bed mob & transfers. Pt. refused continu ed use of FWW, able to demonstrate adquate quad strength /june testing. Pt. amb w/min-SBA 200+ft w/o AD. Pt. scored 23/28 on Tinetti w/o AD, indicating at risk for falls. Pt. verb. she was going to OP PT in [place]. She indicates her will be home for a while be fore he goes back to work, thus she is confident in returning home within the next 1-2 days. Pt. verb. that she is aware of supine & seated leg exercises to promote strngthening. Pt. supijne in bed @ end of PT w/call light within reach to verb needs. Cognition Overall Cognitive Status WFL Orientation Level Oriented Bed Mobility Supine to Sit Modified independent Sit to Supine Modified independent Transfers Sit to/from Stand Modified independent Mobility Weight Bearing Status WBAT RLE;WBAT LLE Ambulation Assistance Minimal assist (min-SBA w/o AD, SB-Junior w/FWW, pt. refuses further FWW use ) Maximal Ambulation Distance (feet) 200+ft Total Ambulation Distance (feet) 200+ft Distance limited by? Therapist/staff discretion Pattern Alternating;Decreased laisha (slight bilateral arm splay & very mild Lpath deviation ) Assistive Device Walker front wheeled;None Stairs Assistance (pt. has 1STE/landing w/o railing ) Balance Balance Yes ( at risk for falls on Tinetti) Activity Tolerance Activity Tolerance Patient limited by fatigue Plan Treatment/Interventions Balance training;Family training;Gait training;Review HEP;Provide H EP;Review precautions;Stair training;Therapeutic exercise;Transfer training;W/C training PT Frequency 5-7x/wk;Once per day;Twice a day Care Duration (# of days) 7 # of days Recommendation Recommendations Prior Setting;OP PT Equipment Recommended None Barriers to Discharge Physical Deficits Impacting Functional [place] PT Ready for Discharge Yes (pt.'s will be home until school starts ) onver roshan Main, Provider Unknown - 11/09/2014 2:13 PM PDT Nurse Progress Note by Eliza Cheng RN at 11/09/141412 Author: Eliza Cheng RN Service: (none) Author Type: Registered Nurse Filed: 11/09/14 1415 Date of Service: 11/09/141412 Status: Signed Leather Belt Loop Cutter: Eliza Cheng RN (Registered Nurse) Per pt: Flagyl does not sit well with her. "I'm not gonna take it when I get home, that's all there is to it". Pt is not interested in taking flagyl, states she "stopped taking it 20 years ago" and due to her Chrons, she, "knows what all these meds do to her". Unsure if pt will be compliant with medications when she returns home. Pt does not want to take the f lagyl even while at the hospital. Ev Mcfarland MD - 11/09/2014 8:57 AM PDT Progress Notes by Ev Mas MD at 11/09/1457 Author: Ev Mas MD Service: Infectious Disease Author Type: Physician Filed: 11/09/14 1442 Date of Service: 11/09/14856 Status: Signed Leather Belt Loop Cutter: Ev Mas MD (Physician) [facility] Service: Infectious Disease Progress Note Hospital Day: LOS: 4 days Post-Op Day: * No surgery found * SUBJECTIVE Patient Summary: 59-year-old female with history of splenic artery thrombosis, COPD, Crohn's disease, urosepsis, immunocompromised on corticosteroids presented with severe head ache associated with nausea and vomiting. There was also a slight increase in chronic diarrh ea. Workup has been negative thus far. Leukocytosis has improved with empiric Rocephin and F lagyl. Lumbar puncture was reassuring, 7 red blood cells noted but no white blood cells, nor mal glucose, slightly elevated protein likely secondary to blood. From hospitalist note:Patient is a 59 year old female with past medical history of COPD, Cr ohn's Disease, HTN, History of Spelnic Vein Thrombosis and Immunosuppression due to Steroids and Remicade who was admitted as a transfer from [facility] due to sepsis and a ltered mental status. Apparently, she developed nausea, vomiting and diarrhea for four days and was very lethargic. Her has been giving all her medications including narcotics Oxycodone Morphine sulfate. Her labs there showed leukocytosis and findings of UTI. She was started IV fluids and given one dose of Zosyn, Flagyl and Vancomycin. She was then transferr ed to [facility], upon arrival she was febrile and labs showed WBC of 26 while BMP revealed hypona tremia with Na of 128. A spinal tap was done which was stable without signs of meningitis. I D services was consulted and Dr. Turner initially saw and recommended Ceftriaxone BID then flor[place] nged to daily. An MRI of the brain was also done which showed supratentorial, pontine, and c erebellar white matter lesions concerning for demyelinating process such as multiple scleros is. MS panel was sent and MRI results were briefly discussed with Dr. Boyle but not claudette velazquez consulted who recommended to repeat MRI with contrast prior to her discharge and out pat ient follow up. CC: Headache, nausea Chart reviewed: No new events. Subjective Headache resolved Diarrhea resolved after reinstitution of morphine No nausea vomiting ROS No fever, chills sweats. . No rashes or pruritis. No oral pain. Scheduled Medications acetaminophen 1,000 mg Oral Once cefdinir 300 mg Oral Q12H famotidine 20 mg Oral BID Or famotidine 20 mg Intravenous BID heparin (porcine) 5000 unit/0.5mL 5,000 Units Subcutaneous Q12H lisinopril 20 mg Oral Daily Magnesium Chloride 1 tablet Oral Daily metoprolol 50 mg Oral BID metroNIDAZOLE 500 mg Oral 3 times per day morphine 15 mg Oral 5x Daily pantoprazole 40 mg Oral QAM AC potassium chloride 40 mEq Oral Once potassium chloride 40 mEq Oral Once predniSONE 15 mg Oral Daily with breakfast promethazine 50 mg Oral 4 times per day sodium bicarbonate buffer 5 mL Infiltration Once sodium bicarbonate buffer 5 mL Infiltration Once tamsulosin 0.4 mg Oral after dinner warfarin 6 mg Oral Daily Continuous Infusions sodium chloride (IV) 110 mL/hr at 11/08/14 2326 PRN Medications acetaminophen OR acetaminophen, morphine OR morphine OR morphine, ondansetron * *OR ondansetron, ondansetron, oxyCODONE-acetaminophen AND oxyCODONE, polyethylene glyc ol, promethazine, sodium bicarbonate buffer, sodium chloride 0.9 %, zolpidem OBJECTIVE Vital Signs: BP 161/77 mmHg | Pulse 79 | Temp(Src) 98.8 F (37.1 C) (Oral) | Resp 16 | Ht 1.753 m (5' 9") | Wt 77.61 kg (171 lb 1.6 oz) | BMI 25.26 kg/m2 | SpO2 93% | ? No Temp (24hrs), Av.5 F (36.9 C), Min:98.1 F (36.7 C), Max:98.8 F (37.1 C) vitals reviewed, nontoxic afebrile appears comfortable and not in any distress No neck stiffness Conjunctivae-some edema noted Lungs clear to auscultation Abdomen-no significant tenderness rebound or guarding No generalized rash Alert and appropriate DATA CBC: Lab Results Component Value Date WBC 15.41* 11/09/2014 RBC 3.75 11/09/2014 HGB 11.2* 11/09/2014 HGB 10.9* 04/23/2014 HCT 36.1 11/09/2014 HCT 32* 04/23/2014 MCV 96.2 11/09/2014 MCH 30.0 11/09/2014 MCHC 31.2* 11/09/2014 RDW 58.6* 11/09/2014 PLT 391 11/09/2014 MPV 8.6 11/09/2014 DIFFTYPE AUTOMATED 11/08/2014 CMP: Lab Results Component Value Date NA 137 11/09/2014 K 3.4* 11/09/2014 CL 109 11/09/2014 CO2 20* 11/09/2014 ANIONGAP 11 11/09/2014 GLUF 74 11/09/2014 BUN 8 11/09/2014 CREATININE 0.57 11/09/2014 BCR 14 11/09/2014 CA 8.5 11/09/2014 PROT 5.9* 11/09/2014 ALB 2.7* 11/09/2014 GLOB 3.2 11/09/2014 BILITOT 0.4 11/09/2014 ALP 137* 11/09/2014 AST 13 11/09/2014 ALT 13 11/09/2014 EGFR >60 11/09/2014 Microbiology: Blood cultures negative 2 so far. Stool culture pending. CSF culture pendin g. Enterovirus PCR negative. Spinal fluid analysis shows 2 white blood cells, 7 red blood ce lls, protein 59, normal glucose. PROBLEM LIST Principal Problem: Sepsis(995.91) (FORMERLY [facility]) Active Problems: Diarrhea Encephalopathy acute Delirium Urinary tract infection, site not specified Debility, unspecified Dehydration Hyponatremia Hypertension ASSESSMENT & PLAN Febrile illness with encephalopathy (11/05/2014) Primary symptoms are headache with severe nausea and vomiting. The headache has resolved a t this time. Noted MRA shows white matter lesions-demyelinating process-suggestive of MS. Wo rkup in progress. LP was reassuring Patient currently on Rocephin and Flagyl switched to oral Omnicef and Flagyl Suspect diarrhea related to underlying GI process-apparently worse after morphine was disco ntinued. Culture report and other LP results awaited. Leucocytosis (11/05/2014) Improving, but no symptomatic improvement so far. Will monitor. Diarrhea (11/05/2014) diarrhea was worse after morphine was discontinued and is now resolved after morphine rein stituted. Low suspicion for infectious process Antibiotics may be discontinued Discussed with Dr. Oden Code Status: Full Code Ev Mas MD 11/09/2014 Jimmie Velasquez MD - 11/08/2014 8:42 AM PDT Progress Notes by Rosmery Oden MD at 11/08/14841 Author: Rosmery Oden MD Service: Hospitalist Author Type: Physician Filed: 11/08/14 1725 Date of Service: 11/08/14841 Status: Signed Leather Belt Loop Cutter: Rosmery Oden MD (Physician) [facility] Service: Hospitalist Progress Note Mackenzie Willingham 59 y.o. [id number] - female Neel Vega Dena (General) Hospital Day: LOS: 3 days SUBJECTIVE Patient Summary: Patient is a 59 year old female with past medical history of COPD, Crohn's Disease, HTN, Hi story of Spelnic Vein Thrombosis and Immunosuppression due to Steroids and Remicade who was admitted as a transfer from [facility] due to sepsis and altered mental status. Apparently, she developed nausea, vomiting and diarrhea for four days and was very lethargic . Her has been giving all her medications including narcotics Oxycodone Morphine sul fate. Her labs there showed leukocytosis and findings of UTI. She was started IV fluids and given one dose of Zosyn, Flagyl and Vancomycin. She was then transferred to [facility], upon arriv al she was febrile and labs showed WBC of 26 while BMP revealed hyponatremia with Na of 128. A spinal tap was done which was stable without signs of meningitis. ID services was consult ed and Dr. Turner initially saw and recommended Ceftriaxone BID then changed to daily. An MRI of the brain was also done which showed supratentorial, pontine, and cerebellar white matter lesions concerning for demyelinating process such as multiple sclerosis. MS panel was sent and MRI results were briefly discussed with Dr. Boyle but not officially consulted who alan mmended to repeat MRI with contrast prior to her discharge and out patient follow up. Events Overnight: Patient seen and examined. Overnight events noted. Patient reported to be feeling slightly better today with less nausea and vomiting. She reported several episodes of diarrhea with a bdominal discomfort off and on. She asked for her Morphine which she has been taking for sev eral years. Denied chest pains or shortness of breaths. Feeling fatigued and weak. No abdomi nal pain, appetite remained low. Remained afebrile. Scheduled Medications acetaminophen 1,000 mg Oral Once cefTRIAXone 2 g Intravenous Q24H famotidine 20 mg Oral BID Or famotidine 20 mg Intravenous BID heparin (porcine) 5000 unit/0.5mL 5,000 Units Subcutaneous Q12H lisinopril 20 mg Oral Daily Magnesium Chloride 1 tablet Oral Daily metoprolol 50 mg Oral BID potassium chloride 40 mEq Oral Once potassium chloride 40 mEq Intravenous Once predniSONE 15 mg Oral Daily with breakfast promethazine 50 mg Oral 4 times per day sodium bicarbonate buffer 5 mL Infiltration Once sodium bicarbonate buffer 5 mL Infiltration Once tamsulosin 0.4 mg Oral after dinner warfarin 6 mg Oral Daily Continuous Infusions sodium chloride (IV) 110 mL/hr at 11/08/14 0326 PRN Medications acetaminophen OR acetaminophen, morphine OR morphine OR morphine, ondansetron * *OR ondansetron, ondansetron, oxyCODONE-acetaminophen AND oxyCODONE, oxyCODONE-acetami nophen AND oxyCODONE, polyethylene glycol, promethazine, sodium bicarbonate buffer, zolp idem Allergy: Allergies Allergen Reactions Demerol [Meperidine] Other (See Comments) Unknown Erythromycin Other (See Comments) unknown Levofloxacin Other (See Comments) tendinitis Reglan [Metoclopramide] Agitation Unknown Penicillins Nausea and Vomiting OBJECTIVE Vital Signs: BP 171/81 mmHg | Pulse 87 | Temp(Src) 98 F (36.7 C) (Oral) | Resp 16 | Ht 1.753 m (5' 9 ") | Wt 75 kg (165 lb 5.5 oz) | BMI 24.41 kg/m2 | SpO2 96% | ? No I&O Detailed Table: I/O last 3 completed shifts: In: 5632 [P.O.:1100; I.V.:4532] Out: 2350 [Urine:2350] Weight change: 6.96 kg (15 lb 5.5 oz) Hemodynamics Last 24hrs: Examination: Constitutional: Patient is alert and oriented. Appears frail but not in acute distress. HEENT: Head: Normocephalic and Atraumatic. Nose: Nose normal. Mouth/Throat: Oropharynx is clear and moist. Eyes: No conjunctiva injection. EOM Intact. PERRLA. No scleral icterus. Neck: Neck supple. No JVD present. No tracheal deviation present. No thyromegaly Cardiovascular: RRR, no murmur heard and no friction rub. Pulmonary/Chest: Symmetrical chest expansion, + Few rales and crackles at bases. Abdominal: Soft, BS present, no distension, no ascites. No rebound tenderness and no guardi ng. Musculoskeletal: Moving all limbs. No joint tenderness. No pedal edema. Neurological: No focal neurologic deficits. + Confusion, No CN deficits. Skin: Skin is warm and dry. No rash noted. No erythema. No pallor. Psychiatric: No psychosis, dysphoric affect. Judgment is fair. LABS: Recent Results (from the past 24 hour(s)) Protein, Total Collection Time: 11/07/14 3:34 PM Result Value Ref Range TOTAL PROTEIN 6.2 (L) 6.3 - 8.2 g/dL CBC W/Auto Diff (Reflex to Manual) Collection Time: 11/08/14 3:39 AM Result Value Ref Range WBC 17.19 (H) 3.80 - 11.00 K/uL RBC 4.07 3.70 - 5.10 M/uL HGB 12.3 11.3 - 15.5 g/dL HCT 38.1 34.0 - 46.0 % MCV 93.6 80.0 - 100.0 fl MCH 30.2 27.0 - 34.0 pg MCHC 32.2 32.0 - 35.5 g/dL RDW SD 59.1 (H) 37 - 53 fl PLT 390 150 - 400 K/uL MPV 8.4 fl DIFF TYPE AUTOMATED NEUTROPHILS 69.87 % LYMPHOCYTES 16.92 % MONOCYTES 11.85 % EOSINOPHILS 0.93 % BASOPHILS 0.43 % NEUTROPHILS ABS 12.01 (H) 1.90 - 7.40 K/uL LYMPHOCYTES ABS 2.91 1.00 - 3.90 K/uL MONOCYTES ABS 2.04 (H) 0.00 - 0.80 K/uL EOSINOPHILS ABS 0.16 0.00 - 0.50 K/uL BASOPHILS ABS 0.07 0.00 - 0.10 K/uL MORPHOLOGY 2+ Comprehensive Metabolic Panel Collection Time: 11/08/14 3:39 AM Result Value Ref Range SODIUM 134 (L) 135 - 143 mmol/L POTASSIUM 2.7 (LL) 3.5 - 4.9 mmol/L CHLORIDE 104 99 - 109 mmol/L CO2 21 (L) 23 - 32 mmol/L ANION GAP AGAP 12 5 - 20 mmol/L GLUCOSE 83 65 - 99 mg/dL BUN 8 8 - 25 mg/dL CREATININE 0.52 0.50 - 1.00 mg/dL BUN/CREAT 15 CALCIUM 8.6 8.5 - 10.5 mg/dL TOTAL PROTEIN 5.8 (L) 6.3 - 8.2 g/dL Albumin 2.9 (L) 3.6 - 5.0 g/dL GLOBULIN 2.9 1.3 - 4.9 g/dL A/G 1.0 1.0 - 2.4 TBIL 0.7 0.1 - 1.5 mg/dL ALK PHOS 169 (H) 35 - 115 U/L AST 16 10 - 45 U/L ALT 17 10 - 65 U/L EGFR >60 >60 mL/min/1.73m2 Protime-INR Collection Time: 11/08/14 3:39 AM Result Value Ref Range INR 1.1 MRI BRAIN IMPRESSION: 1. Supratentorial, pontine, and cerebellar white matter lesions, as above. These may be due to a demyelinating process such as multiple sclerosis. Clinically correlate. 2. No evidence of acute intracranial infarct, hemorrhage, or mass. 3. No evidence of flow-limiting intracranial arterial stenosis or aneurysm. LEM LIST Principal Problem: Sepsis(995.91) (HCC) Active Problems: Encephalopathy acute Diarrhea Delirium Urinary tract infection, site not specified Debility, unspecified Dehydration Hyponatremia Hypertension ASSESSMENT & PLAN Sepsis: This was due to UTI, she is also S/P Spinal tap which was negative for meningitis. WBC counts are trending down and improving. Will continue IV Ceftriaxone 2 gm daily and fo llow ID services recommendations and cultures. Delirium / Toxic Metabolic Encephalopathy: Multifactorial, likely precipitated by sepsis, dehydration and narcotic medications. Now improving, continue supportive care and monitor fo r behavioral symptoms. MRI brain showed supratentorial, pontine, and cerebellar white matter lesions concerning for possible demyelinating process. Will follow MS panel results and con frickertron checker repeating MRI with contrast before discharge. Hyponatremia / Dehydration: Secondary to volume loss, diarrhea and sepsis. Improving, will continue NS drip and monitor BMP. Immunocompromised State: This is due to immune modulating agents and steroids. Stable, con tinue IV antibiotics and follow cultures. UTI NOS: Cultures remains negative so far. Will continue IV Ceftriaxone as scheduled and m onitor. Hypertension: BP seems to be elevated off and on. Will continue Metoprolol and increase Li sinopril to BID and follow hemodynamics. Diarrhea: Mild to moderate and persisting. Work up has been negative for C. Diff toxins. Wi ll resume oral Morphine which has been helpful in the past and monitor progress. Debility NOS: Multifactorial, will involve PT services when medically stable. DVT prophylaxis with SCD's, Coumadin and S/C Heparin till INR is therapeutic. Discharge plans when stable and improved in 2 to 3 days. Spent more than 30 minutes reviewing patient's labs, diagnostic tests, examination of patie nt, discussing plan of care with patient helped in coordination of care and answered their q uestions. ROSMERY ODEN MD 11/08/2014 uvalerie, Ev Barrett MD - 11/08/2014 8:07 AM PDT Progress Notes by Ev Mas MD at 11/08/14 0807 Author: Ev Mas MD Service: Infectious Disease Author Type: Physician Filed: 11/08/14 1500 Date of Service: 11/08/14 0807 Status: Signed Leather Belt Loop Cutter: Ev Mas MD (Physician) [facility] Service: Infectious Disease Progress Note Hospital Day: LOS: 3 days Post-Op Day: * No surgery found * SUBJECTIVE Patient Summary: 59-year-old female with history of splenic artery thrombosis, COPD, Crohn's disease, urosepsis, immunocompromised on corticosteroids presented with severe head ache associated with nausea and vomiting. There was also a slight increase in chronic diarrh ea. Workup has been negative thus far. Leukocytosis has improved with empiric Rocephin and F lagyl. Lumbar puncture was reassuring, 7 red blood cells noted but no white blood cells, nor mal glucose, slightly elevated protein likely secondary to blood. From hospitalist note:Patient is a 59 year old female with past medical history of COPD, Cr ohn's Disease, HTN, History of Spelnic Vein Thrombosis and Immunosuppression due to Steroids and Remicade who was admitted as a transfer from [facility] due to sepsis and a ltered mental status. Apparently, she developed nausea, vomiting and diarrhea for four days and was very lethargic. Her has been giving all her medications including narcotics Oxycodone Morphine sulfate. Her labs there showed leukocytosis and findings of UTI. She was started IV fluids and given one dose of Zosyn, Flagyl and Vancomycin. She was then transferr ed to [facility], upon arrival she was febrile and labs showed WBC of 26 while BMP revealed hypona tremia with Na of 128. A spinal tap was done which was stable without signs of meningitis. I D services was consulted and Dr. Turner initially saw and recommended Ceftriaxone BID then florida nged to daily. An MRI of the brain was also done which showed supratentorial, pontine, and c erebellar white matter lesions concerning for demyelinating process such as multiple scleros is. MS panel was sent and MRI results were briefly discussed with Dr. Boyle but not claudette velazquez consulted who recommended to repeat MRI with contrast prior to her discharge and out pat ient follow up. CC: Headache, nausea Chart reviewed: No new events. Subjective Patient reports that her headache is better today Diarrhea is worse-because she is not on her usual dose of morphine. Denies any nausea vomiting . ROS No fever, chills sweats. . No rashes or pruritis. No oral pain. Scheduled Medications acetaminophen 1,000 mg Oral Once cefTRIAXone 2 g Intravenous Q24H famotidine 20 mg Oral BID Or famotidine 20 mg Intravenous BID heparin (porcine) 5000 unit/0.5mL 5,000 Units Subcutaneous Q12H lisinopril 20 mg Oral Daily Magnesium Chloride 1 tablet Oral Daily metoprolol 50 mg Oral BID potassium chloride 40 mEq Oral Once potassium chloride 40 mEq Intravenous Once predniSONE 15 mg Oral Daily with breakfast promethazine 50 mg Oral 4 times per day sodium bicarbonate buffer 5 mL Infiltration Once sodium bicarbonate buffer 5 mL Infiltration Once tamsulosin 0.4 mg Oral after dinner warfarin 6 mg Oral Daily Continuous Infusions sodium chloride (IV) 110 mL/hr at 11/08/14 0326 PRN Medications acetaminophen OR acetaminophen, morphine OR morphine OR morphine, ondansetron * *OR ondansetron, ondansetron, oxyCODONE-acetaminophen AND oxyCODONE, oxyCODONE-acetami nophen AND oxyCODONE, polyethylene glycol, promethazine, sodium bicarbonate buffer, zolp idem OBJECTIVE Vital Signs: BP 171/81 mmHg | Pulse 87 | Temp(Src) 98 F (36.7 C) (Oral) | Resp 16 | Ht 1.753 m (5' 9 ") | Wt 75 kg (165 lb 5.5 oz) | BMI 24.41 kg/m2 | SpO2 96% | ? No Temp (24hrs), Av.7 F (37.1 C), Min:98 F (36.7 C), Max:99.6 F (37.6 C) vitals reviewed, nontoxic afebrile appears comfortable and not in any distress No neck stiffness Conjunctivae-some edema noted Lungs clear to auscultation Abdomen-no significant tenderness rebound or guarding No generalized rash Alert and appropriate DATA CBC: Lab Results Component Value Date WBC 17.19* 11/08/2014 RBC 4.07 11/08/2014 HGB 12.3 11/08/2014 HGB 10.9* 04/23/2014 HCT 38.1 11/08/2014 HCT 32* 04/23/2014 MCV 93.6 11/08/2014 MCH 30.2 11/08/2014 MCHC 32.2 11/08/2014 RDW 59.1* 11/08/2014 PLT 390 11/08/2014 MPV 8.4 11/08/2014 DIFFTYPE AUTOMATED 11/08/2014 CMP: Lab Results Component Value Date NA 134* 11/08/2014 K 2.7* 11/08/2014 CL 104 11/08/2014 CO2 21* 11/08/2014 ANIONGAP 12 11/08/2014 GLUF 83 11/08/2014 BUN 8 11/08/2014 CREATININE 0.52 11/08/2014 BCR 15 11/08/2014 CA 8.6 11/08/2014 PROT 5.8* 11/08/2014 ALB 2.9* 11/08/2014 GLOB 2.9 11/08/2014 BILITOT 0.7 11/08/2014 ALP 169* 11/08/2014 AST 16 11/08/2014 ALT 17 11/08/2014 EGFR >60 11/08/2014 Microbiology: Blood cultures negative 2 so far. Stool culture pending. CSF culture pendin g. Enterovirus PCR negative. Spinal fluid analysis shows 2 white blood cells, 7 red blood ce lls, protein 59, normal glucose. PROBLEM LIST Principal Problem: Sepsis(995.91) (FORMERLY [facility]) Active Problems: Diarrhea Encephalopathy acute Delirium Urinary tract infection, site not specified Debility, unspecified Dehydration Hyponatremia Hypertension ASSESSMENT & PLAN Febrile illness with encephalopathy (11/05/2014) Primary symptoms are headache with severe nausea and vomiting. The headache has resolved a t this time. Noted MRA shows white matter lesions-demyelinating process-suggestive of MS. Wo rkup in progress. LP was reassuring Patient currently on Rocephin and Flagyl Anticipate switch to oral in the next 24 hours-plan for Omnicef and Flagyl Suspect diarrhea related to underlying GI process-apparently worse after morphine was disco ntinued. Overweight. Culture report and other LP results. Leucocytosis (11/05/2014) Improving, but no symptomatic improvement so far. Will monitor. Diarrhea (11/05/2014) diarrhea as worse again after changes in morphine dosing. Discussed with Dr. Oden Code Status: Full Code Ev Mas MD 11/08/2014 onversio n Transaction, Provider Unknown - 11/07/2014 11:07 AM PDTFormatting of this note might be di fferent from the original. Nurse Progress Note by Anthony Correa at 11/07/14 8607 Author: Anthony Correa Service: Wound/Ostomy Care Author Type: Nurse Rn Telephone Triage Filed: 11/07/14 1321 Date of Service: 11/07/141106 Status: Signed Leather Belt Loop Cutter: Anthony Correa (Nurse Rn Telephone Triage) Patient seen today for low Marck score. Patient's score 12*. Patient is at high* risk fo r pressure ulcer. IAD noted on buttocks. RN notified. Sensicare applied. Care plan in place. SPOT in place. Rosmery Velasquez MD - 11/07/2014 9:09 AM PDTFormatting of this note might be different from t velvet original. Progress Notes by Rosmery Oden MD at 11/07/14 0909 Author: Rosmery Oden MD Service: Hospitalist Author Type: Physician Filed: 11/07/14 1719 Date of Service: 11/07/14908 Status: Addendum Leather Belt Loop Cutter: Rosmery Oden MD (Physician) Related Notes: Original Note by Rosmery Oden MD (Physician) filed at 11/07/14 17 18 [facility] Service: Hospitalist Progress Note Mackenzie Willingham 59 y.o. [id number] [birth year]- female Neel Fernandes (General) Hospital Day: LOS: 2 days SUBJECTIVE Patient Summary: Patient is a 59 year old female with past medical history of COPD, Crohn's Disease, HTN, Hi story of Spelnic Vein Thrombosis and Immunosuppression due to Steroids and Remicade who was admitted as a transfer from [facility] due to sepsis and altered mental status. Apparently, she developed nausea, vomiting and diarrhea for four days and was very lethargic . Her has been giving all her medications including narcotics Oxycodone Morphine sul fate. Her labs there showed leukocytosis and findings of UTI. She was started IV fluids and given one dose of Zosyn, Flagyl and Vancomycin. She was then transferred to [facility], upon arriv al she was febrile and labs showed WBC of 26 while BMP revealed hyponatremia with Na of 128. A spinal tap was done which was stable without signs of meningitis. ID services was consult ed and Dr. Turner initially saw and recommended Ceftriaxone BID then changed to daily. An MRI of the brain was also done which showed supratentorial, pontine, and cerebellar white matter lesions concerning for demyelinating process such as multiple sclerosis. MS panel was sent and MRI results were briefly discussed with Dr. Boyle but not officially consulted who alan mmended to repeat MRI with contrast prior to her discharge and out patient follow up. Events Overnight: Patient seen and examined. Overnight patient slept fair as reported by the staff. She state d he nausea is persisting and she wanted to go back to home dose of Phenergan at 50 mg every 6 to 8 hours. She reported diarrhea which was loose and chronic. No chest pains or shortnes s of breath reported. Feeling less energetic and fatigued. No abdominal pain, appetite remai amber low. Remained afebrile this AM. Scheduled Medications acetaminophen 1,000 mg Oral Once [START ON 11/08/2014] cefTRIAXone 2 g Intravenous Q24H famotidine 20 mg Oral BID Or famotidine 20 mg Intravenous BID heparin (porcine) 5000 unit/0.5mL 5,000 Units Subcutaneous Q12H lisinopril 20 mg Oral Daily Magnesium Chloride 1 tablet Oral Daily metoprolol 50 mg Oral BID potassium chloride 40 mEq Oral Once predniSONE 15 mg Oral Daily with breakfast promethazine 50 mg Oral 4 times per day sodium bicarbonate buffer 5 mL Infiltration Once sodium bicarbonate buffer 5 mL Infiltration Once tamsulosin 0.4 mg Oral after dinner warfarin 6 mg Oral Daily Continuous Infusions sodium chloride (IV) 110 mL/hr at 11/07/14 0927 PRN Medications acetaminophen OR acetaminophen, morphine OR morphine OR morphine, ondansetron * *OR ondansetron, ondansetron, oxyCODONE-acetaminophen AND oxyCODONE, oxyCODONE-acetami nophen AND oxyCODONE, polyethylene glycol, promethazine, sodium bicarbonate buffer, zolp idem Allergy: Allergies Allergen Reactions Demerol [Meperidine] Other (See Comments) Unknown Erythromycin Other (See Comments) unknown Levofloxacin Other (See Comments) tendinitis Reglan [Metoclopramide] Agitation Unknown Penicillins Nausea and Vomiting OBJECTIVE Vital Signs: BP 189/87 mmHg | Pulse 106 | Temp(Src) 98.4 F (36.9 C) (Oral) | Resp 18 | Ht 1.753 m (5 ' 9") | Wt 68.04 kg (150 lb) | BMI 22.14 kg/m2 | SpO2 96% | ? No I&O Detailed Table: I/O last 3 completed shifts: In: 2156 [I.V.:2156] Out: 950 [Urine:950] Weight change: -0.001 kg (-0 oz) Hemodynamics Last 24hrs: Examination: Constitutional: Patient is alert and oriented x 2. Appears dehydrated but not in acute dist ress. HEENT: Head: Normocephalic and Atraumatic. Nose: Nose normal. Mouth/Throat: Oropharynx is clear with dry tongue, lips and mucous membranes. Eyes: No conjunctiva injection. EOM Intact. PERRLA. No scleral icterus. Neck: Neck supple. No JVD present. No tracheal deviation present. No thyromegaly Cardiovascular: + Tachycardia, no murmur heard and no friction rub. Pulmonary/Chest: Symmetrical chest expansion, + Few rales and crackles at bases. Abdominal: Soft, BS present, no distension, no ascites. There is no rebound tenderness and no guarding. Musculoskeletal: Moving all limbs. No joint tenderness. No pedal edema. Neurological: No focal neurologic deficits. + Confusion, No CN deficits. Skin: Skin is warm and dry. No rash noted. No erythema. No pallor. Psychiatric: Less confusion and dysphoric affect. Judgment is fair. LABS: Recent Results (from the past 24 hour(s)) CBC W/Auto Diff (Reflex to Manual) Collection Time: 11/07/14 4:34 AM Result Value Ref Range WBC 14.72 (H) 3.80 - 11.00 K/uL RBC 4.28 3.70 - 5.10 M/uL HGB 13.0 11.3 - 15.5 g/dL HCT 40.0 34.0 - 46.0 % MCV 93.4 80.0 - 100.0 fl MCH 30.3 27.0 - 34.0 pg MCHC 32.5 32.0 - 35.5 g/dL RDW SD 57.8 (H) 37 - 53 fl PLT 403 (H) 150 - 400 K/uL MPV 8.4 fl DIFF TYPE AUTOMATED NEUTROPHILS 69.85 % LYMPHOCYTES 17.96 % MONOCYTES 11.10 % EOSINOPHILS 0.77 % BASOPHILS 0.32 % NEUTROPHILS ABS 10.28 (H) 1.90 - 7.40 K/uL LYMPHOCYTES ABS 2.64 1.00 - 3.90 K/uL MONOCYTES ABS 1.63 (H) 0.00 - 0.80 K/uL EOSINOPHILS ABS 0.11 0.00 - 0.50 K/uL BASOPHILS ABS 0.05 0.00 - 0.10 K/uL Comprehensive Metabolic Panel Collection Time: 11/07/14 4:34 AM Result Value Ref Range SODIUM 128 (L) 135 - 143 mmol/L POTASSIUM 3.1 (L) 3.5 - 4.9 mmol/L CHLORIDE 96 (L) 99 - 109 mmol/L CO2 24 23 - 32 mmol/L ANION GAP AGAP 11 5 - 20 mmol/L GLUCOSE 102 (H) 65 - 99 mg/dL BUN 6 (L) 8 - 25 mg/dL CREATININE 0.49 (L) 0.50 - 1.00 mg/dL BUN/CREAT 12 CALCIUM 8.5 8.5 - 10.5 mg/dL TOTAL PROTEIN 6.1 (L) 6.3 - 8.2 g/dL Albumin 3.0 (L) 3.6 - 5.0 g/dL GLOBULIN 3.1 1.3 - 4.9 g/dL A/G 1.0 1.0 - 2.4 TBIL 0.7 0.1 - 1.5 mg/dL ALK PHOS 208 (H) 35 - 115 U/L AST 21 10 - 45 U/L ALT 21 10 - 65 U/L EGFR >60 >60 mL/min/1.73m2 Protime-INR Collection Time: 11/07/14 5:24 AM Result Value Ref Range INR 1.1 MRI BRAIN IMPRESSION: 1. Supratentorial, pontine, and cerebellar white matter lesions, as above. These may be due to a demyelinating process such as multiple sclerosis. Clinically correlate. 2. No evidence of acute intracranial infarct, hemorrhage, or mass. 3. No evidence of flow-limiting intracranial arterial stenosis or aneurysm. LEM LIST Principal Problem: Sepsis(995.91) ([facility]) Active Problems: Encephalopathy acute Diarrhea Delirium Urinary tract infection, site not specified Debility, unspecified Dehydration Hyponatremia Hypertension ASSESSMENT & PLAN Sepsis: Possibly due to UTI and or pneumonia. Lumbar tap was negative for meningitis while MRI showed supratentorial, pontine, and cerebellar white matter lesions concerning for poss ible demyelinating process. Will send MS panel and repeat MRI in few days with contrast and follow closely. Will also continue IV Ceftriaxone 2 gm daily and follow ID services recommen dations and cultures. Delirium / Toxic Metabolic Encephalopathy: Multifactorial, likely due to infection, sepsis , dehydration and narcotic medications. Slowly improving, continue supportive care and if ne eded will give Haloperidol for behavioral symptoms. Hyponatremia / Dehydration: Secondary to volume loss, diarrhea and sepsis. Continue N Sali ne and monitor BMP periodically. Immunocompromised State: This has been due to immune modulating agents and steroids for Cr ohn's Disease. Monitor CBC and continue IV antibiotics as scheduled and follow cultures. UTI NOS: Cultures remains negative so far. Will continue IV Ceftriaxone as scheduled and m onitor. Hypertension: BP seems to be elevated off and on. Will resume Metoprolol and Lisinopril an d follow hemodynamics. Diarrhea: Now stable and improved, monitor for worsening symptoms and send stools for C Dif f and fecal leukocytes as indicated. Debility NOS: Multifactorial, will involve PT services when medically stable. DVT prophylaxis with SCD's, Coumadin and S/C Heparin till INR is therapeutic. Discharge plans when stable and improved in 3 to 4 days. Spent more than 30 minutes reviewing patient's labs, diagnostic tests, examination of patie nt, discussing plan of care with patient helped in coordination of care and answered their q uestions. ROSMERY ODEN MD 11/07/2014 ork, Nena Walker O - 11/07/2014 8:09 AM PDT Progress Notes by Raphael Turner DO at 11/07/14 0809 Author: Raphael Turner DO Service: (none) Author Type: Physician Filed: 11/07/14 0845 Date of Service: 11/07/14808 Status: Signed Leather Belt Loop Cutter: Raphael Turner DO (Physician) [facility] Service: Infectious Disease Progress Note Hospital Day: LOS: 2 days Post-Op Day: * No surgery found * SUBJECTIVE Patient Summary: 59-year-old female with history of splenic artery thrombosis, COPD, Crohn's disease, urosepsis, immunocompromised on corticosteroids presented with severe head ache associated with nausea and vomiting. There was also a slight increase in chronic diarrh ea. Workup has been negative thus far. Leukocytosis has improved with empiric Rocephin and F lagyl. Lumbar puncture was reassuring, 7 red blood cells noted but no white blood cells, nor mal glucose, slightly elevated protein likely secondary to blood. CC: Headache, nausea Chart reviewed: No new events. Subjective The patient reports that her headache has improved only slightly since yesterday. She yesy nues to have significant nausea. She feels that she more nausea medication. She denies diarr hea today. ROS No fever, chills sweats. No diarrhea. No rashes or pruritis. No oral pain. Scheduled Medications acetaminophen 1,000 mg Oral Once cefTRIAXone 2 g Intravenous Q12H famotidine 20 mg Oral BID Or famotidine 20 mg Intravenous BID heparin (porcine) 5000 unit/0.5mL 5,000 Units Subcutaneous Q12H Magnesium Chloride 1 tablet Oral Daily predniSONE 15 mg Oral Daily with breakfast sodium bicarbonate buffer 5 mL Infiltration Once warfarin 6 mg Oral Daily Continuous Infusions sodium chloride (IV) 125 mL/hr at 11/07/14 0758 PRN Medications acetaminophen OR acetaminophen, morphine OR morphine OR morphine, ondansetron * *OR ondansetron, ondansetron, polyethylene glycol, promethazine, sodium bicarbonate buffer , zolpidem OBJECTIVE Vital Signs: BP 173/86 mmHg | Pulse 109 | Temp(Src) 98.3 F (36.8 C) (Oral) | Resp 22 | Ht 1.753 m (5 ' 9") | Wt 68.04 kg (150 lb) | BMI 22.14 kg/m2 | SpO2 92% | ? No Temp (24hrs), Av.9 F (37.2 C), Min:98.3 F (36.8 C), Max:99.7 F (37.6 C) Exam: Const: Vitals reviewed. No acute distress Skin: No rashes, no edema Neck: Supple, no meningismus ENT: No thrush. Lungs: CTAB, no rales or wheezes Heart: RRR, no murmur Abd: soft, NT, + bowel sounds DATA CBC: Lab Results Component Value Date WBC 14.72* 11/07/2014 RBC 4.28 11/07/2014 HGB 13.0 11/07/2014 HGB 10.9* 04/23/2014 HCT 40.0 11/07/2014 HCT 32* 04/23/2014 MCV 93.4 11/07/2014 MCH 30.3 11/07/2014 MCHC 32.5 11/07/2014 RDW 57.8* 11/07/2014 PLT 403* 11/07/2014 MPV 8.4 11/07/2014 DIFFTYPE AUTOMATED 11/07/2014 CMP: Lab Results Component Value Date NA 128* 11/07/2014 K 3.1* 11/07/2014 CL 96* 11/07/2014 CO2 24 11/07/2014 ANIONGAP 11 11/07/2014 GLUF 102* 11/07/2014 BUN 6* 11/07/2014 CREATININE 0.49* 11/07/2014 BCR 12 11/07/2014 CA 8.5 11/07/2014 PROT 6.1* 11/07/2014 ALB 3.0* 11/07/2014 GLOB 3.1 11/07/2014 BILITOT 0.7 11/07/2014 ALP 208* 11/07/2014 AST 21 11/07/2014 ALT 21 11/07/2014 EGFR >60 11/07/2014 Microbiology: Blood cultures negative 2 so far. Stool culture pending. CSF culture pendin g. Enterovirus PCR negative. Spinal fluid analysis shows 2 white blood cells, 7 red blood ce lls, protein 59, normal glucose. PROBLEM LIST Principal Problem: Sepsis(995.91) (HCC) Active Problems: Diarrhea Encephalopathy acute Delirium Urinary tract infection, site not specified Debility, unspecified Dehydration Hyponatremia ASSESSMENT & PLAN Febrile illness with encephalopathy (11/05/2014) Primary symptoms are headache with severe nausea and vomiting. Await MRI to assess for jules ology of headache. Lumbar puncture was reassuring. Rocephin can be reduced to 2 g q.24 hours , continue Flagyl for now. Leucocytosis (11/05/2014) Improving, but no symptomatic improvement so far. Will monitor. Diarrhea (11/05/2014) The diarrhea itself is already resolved, will monitor. Dr. Mas will assume Infectious Diseases followup on Tuesday11/08/14. Code Status: Full Code RAPHAEL TURNER DO 11/07/2014 Rosmery Velasquez M D - 11/06/2014 8:45 AM PDT Progress Notes by Rosmery Oden MD at 11/06/14 0845 Author: Rosmery Oden MD Service: Hospitalist Author Type: Physician Filed: 11/06/14 1700 Date of Service: 11/06/14844 Status: Addendum Leather Belt Loop Cutter: Rosmery Oden MD (Physician) Related Notes: Original Note by Rosmery Oden MD (Physician) filed at 11/06/14 16 57 [facility] Service: Hospitalist Progress Note Mackenzie Willingham 59 y.o. [id number] female Neel Fernandes (General) Hospital Day: LOS: 1 day SUBJECTIVE Patient Summary: Patient is a 59 year old female with past medical history of COPD, Crohn's Disease, HTN, Hi story of Spelnic Vein Thrombosis and Immunosuppression due to Steroids and Remicade who was admitted as a transfer from [facility] due to sepsis and altered mental status. Apparently, she developed nausea, vomiting and diarrhea for four days and was very lethargic . Her has been giving all her medications including narcotics Oxycodone Morphine sul fate. Her labs there showed leukocytosis and findings of UTI. She was started IV fluids and given one dose of Zosyn, Flagyl and Vancomycin. Upon arrival to [facility] she was febrile and lab s showed WBC of 26 while BMP revealed hyponatremia with Na of 128. A spinal tap was done and ID services was consulted. Events Overnight: Patient seen and examined. Overnight events noted. Patient complaint of persistent nausea a nd asked for 50 mg of phenergan IV push. She was also noted to be confused off and on. No ch est pains or shortness of breath reported and no vomiting. Feeling less energetic and fatigu ed. No abdominal pain and diarrhea had resolved. Appetite has been low. Had mild grade fever since last night. Scheduled Medications acetaminophen 1,000 mg Oral Once cefTRIAXone 2 g Intravenous Q12H famotidine 20 mg Oral BID Or famotidine 20 mg Intravenous BID heparin (porcine) 5000 unit/0.5mL 5,000 Units Subcutaneous Q12H predniSONE 15 mg Oral Daily with breakfast sodium bicarbonate buffer 5 mL Infiltration Once warfarin 6 mg Oral Daily Continuous Infusions sodium chloride (IV) 150 mL/hr at 11/06/14 1233 PRN Medications acetaminophen OR acetaminophen, morphine OR morphine OR morphine, ondansetron * *OR ondansetron, ondansetron, polyethylene glycol, promethazine, sodium bicarbonate buffer , zolpidem Allergy: Allergies Allergen Reactions Demerol [Meperidine] Other (See Comments) Unknown Erythromycin Other (See Comments) unknown Levofloxacin Other (See Comments) tendinitis Reglan [Metoclopramide] Agitation Unknown Penicillins Nausea and Vomiting OBJECTIVE Vital Signs: BP 167/82 mmHg | Pulse 106 | Temp(Src) 99.7 F (37.6 C) (Oral) | Resp 16 | Ht 1.753 m (5 ' 9") | Wt 68.04 kg (150 lb) | BMI 22.14 kg/m2 | SpO2 96% | ? No I&O Detailed Table: Weight change: Hemodynamics Last 24hrs: Examination: Constitutional: Patient is alert and oriented x 2. Appears well-developed but dehydrated. HEENT: Head: Normocephalic and Atraumatic. Nose: Nose normal. Mouth/Throat: Oropharynx is clear with dry tongue, lips and mucous membranes. Eyes: No conjunctiva injection. EOM Intact. PERRLA. No scleral icterus. Neck: Neck supple. No JVD present. No tracheal deviation present. No thyromegaly Cardiovascular: + Tachycardia, no murmur heard and no friction rub. Pulmonary/Chest: Symmetrical chest expansion, + Few rales and crackles at bases. Abdominal: Soft, BS present, no distension, no ascites. There is no rebound tenderness and no guarding. Musculoskeletal: Moving all limbs. No joint tenderness. No pedal edema. Neurological: No focal neurologic deficits. + Confusion, No CN deficits. Skin: Skin is warm and dry. No rash noted. No erythema. No pallor. Psychiatric: + Confusion and dysphoric affect. Judgment is limited. LABS: Recent Results (from the past 24 hour(s)) ED INFORMATION EXCHANGE Collection Time: 11/05/14 9:02 PM Result Value Ref Range YAS PRC YAS CARE PLAN Cardiac Panel Collection Time: 11/05/14 11:42 PM Result Value Ref Range WBC 24.99 (H) 3.80 - 11.00 K/uL RBC 4.36 3.70 - 5.10 M/uL HGB 13.1 11.3 - 15.5 g/dL HCT 40.2 34.0 - 46.0 % MCV 92.3 80.0 - 100.0 fl MCH 30.2 27.0 - 34.0 pg MCHC 32.7 32.0 - 35.5 g/dL RDW SD 59.5 (H) 37 - 53 fl PLT 424 (H) 150 - 400 K/uL MPV 7.3 fl DIFF TYPE AUTOMATED NEUTROPHILS 69.52 % LYMPHOCYTES 17.38 % MONOCYTES 11.50 % EOSINOPHILS 0.84 % BASOPHILS 0.76 % NEUTROPHILS ABS 17.37 (H) 1.90 - 7.40 K/uL LYMPHOCYTES ABS 4.34 (H) 1.00 - 3.90 K/uL MONOCYTES ABS 2.87 (H) 0.00 - 0.80 K/uL EOSINOPHILS ABS 0.21 0.00 - 0.50 K/uL BASOPHILS ABS 0.19 (H) 0.00 - 0.10 K/uL MORPHOLOGY 1+ SODIUM 133 (L) 135 - 143 mmol/L POTASSIUM 3.6 3.5 - 4.9 mmol/L CHLORIDE 95 (L) 99 - 109 mmol/L CO2 28 23 - 32 mmol/L ANION GAP AGAP 13 5 - 20 mmol/L GLUCOSE 123 (H) 65 - 99 mg/dL BUN 7 (L) 8 - 25 mg/dL CREATININE 0.76 0.50 - 1.00 mg/dL BUN/CREAT 10 CALCIUM 8.2 (L) 8.5 - 10.5 mg/dL TOTAL PROTEIN 6.6 6.3 - 8.2 g/dL Albumin 2.7 (L) 3.6 - 5.0 g/dL GLOBULIN 4.0 1.3 - 4.9 g/dL A/G 0.7 (L) 1.0 - 2.4 TBIL 0.7 0.1 - 1.5 mg/dL ALK PHOS 251 (H) 35 - 115 U/L AST 33 10 - 45 U/L ALT 36 10 - 65 U/L EGFR >60 >60 mL/min/1.73m2 CPK 50 30 - 240 U/L INR 1.4 APTT 33 (H) 23 - 32 seconds MMB 0.6 0.5 - 3.6 ng/mL CK-MB Index 1.2 POC Arterial Blood Gas Collection Time: 11/05/14 11:56 PM Result Value Ref Range POC FIO2 32 % pH, Art 7.365 7.350 - 7.450 POC PCO2 50 (H) 35 - 45 mmHg POC p02 81 80 - 105 mmHg POC HCO3 28 (H) 22 - 26 mmol/L POC TCO2 30 (H) 23 - 27 mEq/L POC BASE EXCESS 3 0 - 3 mEq/L POC S02 95 95 - 98 % Magnesium Collection Time: 11/06/14 4:15 AM Result Value Ref Range MAGNESIUM 1.3 (L) 1.7 - 2.4 mg/dL Phosphorus Collection Time: 11/06/14 4:15 AM Result Value Ref Range PHOSPHORUS 3.2 2.3 - 4.8 mg/dL CBC W/Auto Diff (Reflex to Manual) Collection Time: 11/06/14 4:15 AM Result Value Ref Range WBC 24.64 (H) 3.80 - 11.00 K/uL RBC 4.38 3.70 - 5.10 M/uL HGB 13.1 11.3 - 15.5 g/dL HCT 41.2 34.0 - 46.0 % MCV 94.0 80.0 - 100.0 fl MCH 29.9 27.0 - 34.0 pg MCHC 31.8 (L) 32.0 - 35.5 g/dL RDW SD 59.5 (H) 37 - 53 fl PLT 436 (H) 150 - 400 K/uL MPV 8.2 fl DIFF TYPE MANUAL Neutrophils Manual 69 % Lymphocytes Manual 17 % Monocytes Manual 14 % Neutrophils Absolute 17.00 (H) 1.90 - 7.40 K/uL Lymphocytes Absolute 4.19 (H) 1.00 - 3.90 K/uL Monocytes Absolute 3.45 (H) 0.00 - 0.80 K/uL MORPHOLOGY 2+ Protime-INR Collection Time: 11/06/14 4:15 AM Result Value Ref Range INR 1.3 Comprehensive metabolic panel Collection Time: 11/06/14 4:15 AM Result Value Ref Range SODIUM 128 (L) 135 - 143 mmol/L POTASSIUM 3.5 3.5 - 4.9 mmol/L CHLORIDE 95 (L) 99 - 109 mmol/L CO2 25 23 - 32 mmol/L ANION GAP AGAP 12 5 - 20 mmol/L GLUCOSE 120 (H) 65 - 99 mg/dL BUN 8 8 - 25 mg/dL CREATININE 0.45 (L) 0.50 - 1.00 mg/dL BUN/CREAT 18 CALCIUM 8.7 8.5 - 10.5 mg/dL TOTAL PROTEIN 6.8 6.3 - 8.2 g/dL Albumin 3.1 (L) 3.6 - 5.0 g/dL GLOBULIN 3.7 1.3 - 4.9 g/dL A/G 0.8 (L) 1.0 - 2.4 TBIL 0.8 0.1 - 1.5 mg/dL ALK PHOS 214 (H) 35 - 115 U/L AST 26 10 - 45 U/L ALT 29 10 - 65 U/L EGFR >60 >60 mL/min/1.73m2 Urinalysis w/micro (reflex to culture) Collection Time: 11/06/14 5:30 AM Result Value Ref Range COLOR UA YELLOW CLARITY CLEAR Specific [place], UA 1.014 1.002 - 1.030 LEUKOCYTE ESTERASE TRACE (A) NEGATIVE NITRITE NEGATIVE NEGATIVE UROBILINOGEN 0.2 <1.1 mg/dL PROTEIN NEGATIVE NEGATIVE mg/dL PH,URINE 7.0 5.0 - 8.0 BLOOD SMALL (A) NEGATIVE KETONES NEGATIVE NEGATIVE mg/dL BILIRUBIN NEGATIVE NEGATIVE GLUCOSE NEGATIVE NEGATIVE mg/dL WBC 16-25 0 - 5 /hpf RBC 6-10 0 - 5 /hpf BACTERIA NONE SEEN NONE SEEN EPITHELIAL 26-50 /lpf Hyaline Cast 0-2 CSF cell count with differential Collection Time: 11/06/14 3:41 PM Result Value Ref Range COLOR COLORLESS APPEARANCE CLEAR Tube Number, CSF 3 CSF RBC 7 (H) 0 /mm3 CSF WBC 2 0 - 5 /mm3 Protein, CSF Collection Time: 11/06/14 3:41 PM Result Value Ref Range CSF TOTAL PROTEIN 59 (H) 15 - 45 mg/dL Glucose, CSF Collection Time: 11/06/14 3:41 PM Result Value Ref Range CSF GLUCOSE 61 45 - 90 mg/dL Clostridium difficile toxin Collection Time: 11/06/14 3:57 PM Result Value Ref Range Toxigenic C Difficile NEGATIVE NEGATIVE 027 NAP1 BI 027 NAP1 BI PRESUMPTIVE NEGATIVE PROBLEM LIST Principal Problem: Sepsis(995.91) (HCC) Active Problems: Encephalopathy acute Diarrhea Delirium Urinary tract infection, site not specified Debility, unspecified Dehydration Hyponatremia ASSESSMENT & PLAN Sepsis: Possibly due to UTI and or pneumonia. Will also rule out meningitis and proceed wi th a spinal tap today and follow results. Discussed with Dr. Turner recommended to start Ceftr iaxone 2 gm BID and follow CSF results. Will also hydrate with IV fluids and follow CBC and culture results. Delirium / Toxic Metabolic Encephalopathy: Multifactorial, likely due to infection, sepsis , dehydration and narcotic medications. Will monitor for behavioral issues and continue with supportive care. Hyponatremia / Dehydration: Secondary to low oral intake and volume loss due to sepsis and infection. Will continue NS at 125 cc / hr and monitor BMP periodically. 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 Will monitor CBC and continue IV antibiotics and follow CSF analysis. UTI NOS: U/A showed findings of UTI, will continue IV Ceftriaxone as scheduled and follow culture results. Diarrhea: Now stable and improved, will stop Flagyl and check stools again if develops diar kar. Debility NOS: Multifactorial, secondary to sepsis and dehydration and narcotics. Will invol ve PT services when medically stable. DVT prophylaxis with SCD's, Coumadin and S/C Heparin till INR is theraapeutic. Discharge plans when stable and improved in 3 to 4 days. Spent more than 35 minutes reviewing patient's labs, diagnostic tests, examination of patie nt, discussing plan of care with patient helped in coordination of care and answered their q uestions. ROSMERY ODEN MD 11/06/2014 onversion Trans action, Provider Unknown - 11/06/2014 5:44 AM PDT Progress Notes by Rosita Bertrand RPH at 11/06/1444 Author: Rosita Bertrand RPH Service: (none) Author Type: Pharmacist Filed: 11/06/1444 Date of Service: 11/06/14543 Status: Signed Leather Belt Loop Cutter: Rosita Bertrand RPH (Pharmacist) Clinical Pharmacy Note: Renal Monitoring Height: 175.3 cm Weight: 68 kg CREATININE: 0.76 (11/05/14 4342) Estimated creatinine clearance - 83.3 mL/min Pharmacy dosing for renal function per Dr. Haines. Currently there are no medications needing to be adjusted. Pharmacy will continue to monito r for changes in medication orders and in renal function and adjust accordingly per protocol . Rosita Bertrand, PharmNena 11/06/2014 5:44 AM onver roshan Kapooraction, Provider Unknown - 11/06/2014 4:46 AM PDT Nurse Progress Note by Livia Deshpande RN at 11/06/14445 Author: Livia Deshpande RN Service: (none) Author Type: Registered Nurse Filed: 11/06/14610 Date of Service: 11/06/14445 Status: Signed Leather Belt Loop Cutter: Livia Deshpande RN (Registered Nurse) Called pts husbands phone number to complete the MRI form. Left a message with him to call [facility]. docume nted in this encounter Plan of Treatment Not on filedocumented as of this encounter Procedures + +--------+ + + + | Procedure Name | Priori | Date/Time | Associated Diagnosis | Comments | | | ty | | | | + +--------+ + + + | PROTIME INR | Routin | 11/10/2014 | | Results for this | | | e | 4:53 AM | | procedure are in the | | | | PDT | | results section. | + +--------+ + + + | CBC NO DIFFERENTIAL | Routin | 11/10/2014 | | Results for this | | | e | 4:53 AM | | procedure are in the | | | | PDT | | results section. | + +--------+ + + + | MRI BRAIN W WO | Routin | 11/09/2014 | | Results for this | | CONTRAST | e | 4:49 PM | | procedure are in the | | | | PDT | | results section. | + +--------+ + + + | PROTIME INR | Routin | 11/09/2014 | | Results for this | | | e | 3:15 AM | | procedure are in the | | | | PDT | | results section. | + +--------+ + + + | CBC NO DIFFERENTIAL | Routin | 11/09/2014 | | Results for this | | | e | 3:15 AM | | procedure are in the | | | | PDT | | results section. | + +--------+ + + + | COMPREHENSIVE | Routin | 11/09/2014 | | Results for this | | METABOLIC PANEL | e | 3:15 AM | | procedure are in the | | | | PDT | | results section. | + +--------+ + + + | EXTERNAL LAB: CBC | Routin | 11/08/2014 | | Results for this | | | e | 3:39 AM | | procedure are in the | | | | PDT | | results section. | + +--------+ + + + | PROTIME INR | Routin | 11/08/2014 | | Results for this | | | e | 3:39 AM | | procedure are in the | | | | PDT | | results section. | + +--------+ + + + | COMPREHENSIVE | Routin | 11/08/2014 | | Results for this | | METABOLIC PANEL | e | 3:39 AM | | procedure are in the | | | | PDT | | results section. | + +--------+ + + + | PROTEIN, TOTAL | Routin | 11/07/2014 | | Results for this | | | e | 3:34 PM | | procedure are in the | | | | PDT | | results section. | + +--------+ + + + | MRI BRAIN WO | Routin | 11/07/2014 | | Results for this | | CONTRAST ANGIOGRAM | e | 10:35 AM | | procedure are in the | | HEAD WO CONTRAST | | PDT | | results section. | + +--------+ + + + | PROTIME INR | Routin | 11/07/2014 | | Results for this | | | e | 5:24 AM | | procedure are in the | | | | PDT | | results section. | + +--------+ + + + | EXTERNAL LAB: CBC | Routin | 11/07/2014 | | Results for this | | | e | 4:34 AM | | procedure are in the | | | | PDT | | results section. | + +--------+ + + + | COMPREHENSIVE | Routin | 11/07/2014 | | Results for this | | METABOLIC PANEL | e | 4:34 AM | | procedure are in the | | | | PDT | | results section. | + +--------+ + + + | CRYPTOCOCCAL ANTIGEN | Routin | 11/06/2014 | | Results for this | | | e | 3:59 PM | | procedure are in the | | | | PDT | | results section. | + +--------+ + + + | CULTURE, FUNGUS | Timed | 11/06/2014 | | Results for this | | | | 3:59 PM | | procedure are in the | | | | PDT | | results section. | + +--------+ + + + | HISTORICAL | STAT | 11/06/2014 | | Results for this | | MICROBIOLOGY RESULT | | 3:57 PM | | procedure are in the | | | | PDT | | results section. | + +--------+ + + + | CULTURE, STOOL | Timed | 11/06/2014 | | Results for this | | | | 3:57 PM | | procedure are in the | | | | PDT | | results section. | + +--------+ + + + | EXTERNAL LAB: | Timed | 11/06/2014 | | Results for this | | VARICELLA ZOSTER | | 3:43 PM | | procedure are in the | | VIRUS AB, IGG | | PDT | | results section. | + +--------+ + + + | CULTURE, CSF, SMEAR | Timed | 11/06/2014 | | Results for this | | | | 3:43 PM | | procedure are in the | | | | PDT | | results section. | + +--------+ + + + | HISTORICAL | Timed | 11/06/2014 | | Results for this | | MICROBIOLOGY RESULT | | 3:41 PM | | procedure are in the | | | | PDT | | results section. | + +--------+ + + + | HISTORICAL | Timed | 11/06/2014 | | Results for this | | MICROBIOLOGY RESULT | | 3:41 PM | | procedure are in the | | | | PDT | | results section. | + +--------+ + + + | LYME DISEASE, PCR | Routin | 11/06/2014 | | Results for this | | | e | 3:41 PM | | procedure are in the | | | | PDT | | results section. | + +--------+ + + + | [place] VIRUS AB, | Routin | 11/06/2014 | | Results for this | | IGG, IGM, CSF | e | 3:41 PM | | procedure are in the | | | | PDT | | results section. | + +--------+ + + + | CELL COUNT WITH | Timed | 11/06/2014 | | Results for this | | DIFFERENTIAL, CSF | | 3:41 PM | | procedure are in the | | | | PDT | | results section. | + +--------+ + + + | VDRL, CSF | Routin | 11/06/2014 | | Results for this | | | e | 3:41 PM | | procedure are in the | | | | PDT | | results section. | + +--------+ + + + | PROTEIN, CSF | Timed | 11/06/2014 | | Results for this | | | | 3:41 PM | | procedure are in the | | | | PDT | | results section. | + +--------+ + + + | GLUCOSE, CSF | Timed | 11/06/2014 | | Results for this | | | | 3:41 PM | | procedure are in the | | | | PDT | | results section. | + +--------+ + + + | FL LUMBAR PUNCTURE | Routin | 11/06/2014 | | Results for this | | DIAGNOSTIC | e | 3:30 PM | | procedure are in the | | | | PDT | | results section. | + +--------+ + + + | NMO, SERUM, IGG | Routin | 11/06/2014 | | Results for this | | | e | 3:04 PM | | procedure are in the | | | | PDT | | results section. | + +--------+ + + + | OLIGOCLONAL BAND | Routin | 11/06/2014 | | Results for this | | PANEL | e | 3:04 PM | | procedure are in the | | | | PDT | | results section. | + +--------+ + + + | XR ABDOMEN AP | Routin | 11/06/2014 | | Results for this | | UPRIGHT KUB AND PA | e | 7:17 AM | | procedure are in the | | CHEST | | PDT | | results section. | + +--------+ + + + | URINALYSIS WITH | Routin | 11/06/2014 | | Results for this | | MICROSCOPIC WITH | e | 5:30 AM | | procedure are in the | | CULTURE IF INDICATED | | PDT | | results section. | + +--------+ + + + | CULTURE, URINE | Routin | 11/06/2014 | | Results for this | | | e | 5:30 AM | | procedure are in the | | | | PDT | | results section. | + +--------+ + + + | CULTURE, URINE | Timed | 11/06/2014 | | Results for this | | | | 5:30 AM | | procedure are in the | | | | PDT | | results section. | + +--------+ + + + | CULTURE, BLOOD, 2ND | Timed | 11/06/2014 | | Results for this | | SPECIMEN (NON-ORD) | | 5:25 AM | | procedure are in the | | | | PDT | | results section. | + +--------+ + + + | EXTERNAL LAB: CBC | Routin | 11/06/2014 | | Results for this | | | e | 4:15 AM | | procedure are in the | | | | PDT | | results section. | + +--------+ + + + | CULTURE, BLOOD | Timed | 11/06/2014 | | Results for this | | | | 4:15 AM | | procedure are in the | | | | PDT | | results section. | + +--------+ + + + | PROTIME INR | Routin | 11/06/2014 | | Results for this | | | e | 4:15 AM | | procedure are in the | | | | PDT | | results section. | + +--------+ + + + | PHOSPHORUS | Routin | 11/06/2014 | | Results for this | | | e | 4:15 AM | | procedure are in the | | | | PDT | | results section. | + +--------+ + + + | MAGNESIUM | Routin | 11/06/2014 | | Results for this | | | e | 4:15 AM | | procedure are in the | | | | PDT | | results section. | + +--------+ + + + | COMPREHENSIVE | Routin | 11/06/2014 | | Results for this | | METABOLIC PANEL | e | 4:15 AM | | procedure are in the | | | | PDT | | results section. | + +--------+ + + + | HISTORICAL LAB PANEL | Routin | 11/05/2014 | | Results for this | | RESULT | e | 11:42 PM | | procedure are in the | | | | PDT | | results section. | + +--------+ + + + | CT HEAD WO CONTRAST | Routin | 11/05/2014 | | Results for this | | | e | 9:49 PM | | procedure are in the | | | | PDT | | results section. | + +--------+ + + + | XR CHEST 2 VIEWS | Routin | 11/05/2014 | | Results for this | | | e | 7:36 PM | | procedure are in the | | | | PDT | | results section. | + +--------+ + + + documented in this encounter Results CBC no Differential (11/10/2014 4:53 AM PDT) + + + + + + | Component | Value | Ref Range | Performed | Pathologist | | | | | At | Signature | + + + + + + | WBC | 15.45 (H)Comment: | 3.80 - 11.00 | EXTERNAL | | | | Testing performed at | K/uL | LAB | | | | [facility], [address] [facility] | | | | | | [place] | | | | | | [address] | | | | + + + + + + | RED CELL | 3.74Comment: Testing | 3.70 - 5.10 | EXTERNAL | | | COUNT | performed at [facility], [address] | M/uL | LAB | | | | [address], | | | | | | [place] [address] | | | | + + + + + + | Hgb | 11.3Comment: Testing | 11.3 - 15.5 | EXTERNAL | | | | performed at [facility], [address] | g/dL | LAB | | | | [address], | | | | | | [place] [address] | | | | + + + + + + | Hematocrit, | 35.4Comment: Testing | 34.0 - 46.0 % | EXTERNAL | | | POC | performed at [facility], [address] | | LAB | | | | [address], | | | | | | [place] [address] | | | | + + + + + + | MCV | 94.7Comment: Testing | 80.0 - 100.0 fl | EXTERNAL | | | | performed at [facility], [address] | | LAB | | | | [address], | | | | | | [place] [address] | | | | + + + + + + | MCH | 30.3Comment: Testing | 27.0 - 34.0 pg | EXTERNAL | | | | performed at [facility], [address] | | LAB | | | | [address], | | | | | | [place] [address] | | | | + + + + + + | MCHC | 32.0Comment: Testing | 32.0 - 35.5 | EXTERNAL | | | | performed at [facility], [address] | g/dL | LAB | | | | [address], | | | | | | [place] [address] | | | | + + + + + + | RDW-CV | 59.5 (H)Comment: Testing | 37 - 53 fl | EXTERNAL | | | | performed at [facility], [address] | | LAB | | | | [address], | | | | | | [place] [address] | | | | + + + + + + | Platelet | 393Comment: Testing | 150 - 400 K/uL | EXTERNAL | | | Count | performed at [facility], [address] | | LAB | | | Plasma | [place], | | | | | | [place] [address] | | | | + + + + + + | MPV | 8.4Comment: Testing | fl | EXTERNAL | | | | performed at [facility], [address] | | LAB | | | | [address], | | | | | | [place] [address] | | | | + + + + + + + + | Specimen | + + | | + + + +---------+ + + | Performing | Address | City/State/Zipcode | Phone Number | | Organization | | | | + +---------+ + + | EXTERNAL LAB | | | | + +---------+ + + Protime INR (11/10/2014 4:53 AM PDT) + + + + + + | Component | Value | Ref Range | Performed | Pathologist | | | | | At | Signature | + + + + + + | INR | 1.9Comment: REFERENCE | | EXTERNAL | | | [...] | | | | | performed at [facility] | | | | | | [address] [place], [place] | | | | | | [address] | | | | + + + + + + + + | Specimen | + + | Blood specimen | | (specimen) | + + + +---------+ + + | Performing | Address | City/State/Zipcode | Phone Number | | Organization | | | | + +---------+ + + | EXTERNAL LAB | | | | + +---------+ + + MRI Brain w wo Contrast (11/09/2014 4:49 PM PDT) + + | Specimen | + + | | + + + + + | Impressions | Performed At | + + + | 1. Focal white matter disease oriented perpendicular to the mid | | | left lateral ventricle radiating to the posterior frontal subcortical | | | white matter with small second area of subcortical left frontal white | | | matter disease. These findings remain nonspecific. Certainly | | | demyelinating disease should be considered. Lyme disease, migraine, | | | vasculitis, or even microvascular ischemic change remain within the | | | differential. 2. No abnormal enhancement. 3. 1.6 cm right | | | maxillary sinus mucous retention cyst. | | + + + + + + | Narrative | Performed At | + + + | HISTORY: Multiple sclerosis. TECHNIQUE: MRI imaging of the | | | brain was performed on a 1.5 Migdalia MRI system. Multiplanar MRI | | | sequences according to a standard department protocol were acquired | | | with and without contrast. Contrast: MultiHance. Dose: 15 mL. | | | COMPARISON: MRI of the brain previous day. CT brain 11/05/14, | | | 04/22/14, 04/19/14. FINDINGS: Diffusion images remain | | | unremarkable. GRE images unremarkable. T2 FLAIR and T2-weighted | | | images again show multiple adjacent flame-shaped lesions extending | | | perpendicular to the mid left centrum semiovale, with extension into | | | the subcortical white matter, and second independent area of left | | | posterior frontal subcortical white matter increased signal, stable | | | from the previous day. No mass effect. No midline shift. No | | | intracranial hemorrhage. Tiny area of increased signal on T2 FLAIR | | | images sequence 5 image 17 in the central right booker. | | | Postcontrast, no abnormal enhancement is seen. Mucous retention cyst | | | posterior right maxillary sinus measuring 1.6 cm, unchanged. | | + + + + + | Procedure Note | + + | Tez Roper Conversion - 11/24/2018 6:38 AM PDT HISTORY:Multiple sclerosis. | | TECHNIQUE:MRI imaging of the brain was performed on a 1.5 Migdalia MRI system. Multiplanar | | MRI sequences according to a standard department protocol were acquired with and | | without contrast.Contrast: MultiHance. Dose: 15 mL. COMPARISON:MRI of the brain | | previous day. CT brain 11/05/14, 04/22/14, 04/19/14. FINDINGS:Diffusion images remain | | unremarkable. GRE images unremarkable. T2 FLAIR and T2-weighted images again show | | multiple adjacent flame-shaped lesions extending perpendicular to the mid left centrum | | semiovale, with extension into the subcortical white matter, and second independent area | | of left posterior frontal subcortical white matter increased signal, stable from the | | previous day. No mass effect. No midline shift. No intracranial hemorrhage. Tiny area of | | increased signal on T2 FLAIR images sequence 5 image 17 in the central right booker. | | Postcontrast, no abnormal enhancement is seen. Mucous retention cyst posterior right | | maxillary sinus measuring 1.6 cm, unchanged. IMPRESSION: 1. Focal white matter disease | | oriented perpendicular to the mid left lateral ventricle radiating to the posterior | | frontal subcortical white matter with small second area of subcortical left frontal | | white matter disease. These findings remain nonspecific. Certainly demyelinating disease | | should be considered. Lyme disease, migraine, vasculitis, or even microvascular | | ischemic change remain within the differential.2. No abnormal enhancement.3. 1.6 cm | | right maxillary sinus mucous retention cyst. | |IMPRESSION: | |1. Focal white matter disease oriented perpendicular to the mid left lateral ventricle rad iating to the posterior frontal subcortical white matter with small second area of subcortic al left frontal white matter disease. These findings remain | |nonspecific. Certainly demyelinating disease should be considered. Lyme disease, migraine, vasculitis, or even microvascular ischemic change remain within the differential. | |2. No abnormal enhancement. | |3. 1.6 cm right maxillary sinus mucous retention cyst. | | | | | + + CBC no Differential (11/09/2014 3:15 AM PDT) + + + + + + | Component | Value | Ref Range | Performed | Pathologist | | | | | At | Signature | + + + + + + | WBC | 15.41 (H)Comment: | 3.80 - 11.00 | EXTERNAL | | | | Testing performed at | K/uL | LAB | | | | [facility], [address] | | | | | | [place] | | | | | | [address] | | | | + + + + + + | RED CELL | 3.75Comment: Testing | 3.70 - 5.10 | EXTERNAL | | | COUNT | performed at [facility], [address] | M/uL | LAB | | | | [address], | | | | | | [place] [address] | | | | + + + + + + | Hgb | 11.2 (L)Comment: Testing | 11.3 - 15.5 | EXTERNAL | | | | performed at [facility], [address] | g/dL | LAB | | | | [address] [place], | | | | | | [place] [address] | | | | + + + + + + | Hematocrit, | 36.1Comment: Testing | 34.0 - 46.0 % | EXTERNAL | | | POC | performed at [facility], [address] | | LAB | | | | [place], | | | | | | [place] [address] | | | | + + + + + + | MCV | 96.2Comment: Testing | 80.0 - 100.0 fl | EXTERNAL | | | | performed at [facility], [address] | | LAB | | | | [place], | | | | | | [place] [address] | | | | + + + + + + | MCH | 30.0Comment: Testing | 27.0 - 34.0 pg | EXTERNAL | | | | performed at [facility], [address] | | LAB | | | | [address], | | | | | | [place] [address] | | | | + + + + + + | MCHC | 31.2 (L)Comment: Testing | 32.0 - 35.5 | EXTERNAL | | | | performed at [facility], [address] | g/dL | LAB | | | | [address], | | | | | | [place] [address] | | | | + + + + + + | RDW-CV | 58.6 (H)Comment: Testing | 37 - 53 fl | EXTERNAL | | | | performed at [facility], [address] | | LAB | | | | [address], | | | | | | [place] [address] | | | | + + + + + + | Platelet | 391Comment: Testing | 150 - 400 K/uL | EXTERNAL | | | Count | performed at [facility], [address] | | LAB | | | Plasma | [place] [place], | | | | | | [place] [address] | | | | + + + + + + | MPV | 8.6Comment: Testing | fl | EXTERNAL | | | | performed at [facility], [address] | | LAB | | | [address], | | | | | | [place] [address] | | | | + + + + + + + + | Specimen | + + | | + + + +---------+ + + | Performing | Address | City/State/Zipcode | Phone Number | | Organization | | | | + +---------+ + + | EXTERNAL LAB | | | | + +---------+ + + Protime INR (11/09/2014 3:15 AM PDT) + + + + + + | Component | Value | Ref Range | Performed | Pathologist | | | | | At | Signature | + + + + + + | INR | 1.6Comment: REFERENCE | | EXTERNAL | | | [...] | | | | | performed at [facility] | | | | | | [facility];[place], [place] | | | | | | [address] | | | | + + + [...] + +---------+ + + Comprehensive Metabolic Panel (11/09/2014 3:15 AM PDT) + + + + + + | Component | Value | Ref Range | Performed | Pathologist | | | | | At | Signature | + + + + + + | Na | 137Comment: Testing | 135 - 143 | EXTERNAL | | | | performed at [facility], [address] | mmol/L | LAB | | | | [address], | | | | | | [place] [address] | | | | + + + + + + | K | 3.4 (L)Comment: Testing | 3.5 - 4.9 | EXTERNAL | | | | performed at [facility], [address] | mmol/L | LAB | | | | [address], | | | | | | [place] [address] | | | | + + + + + + | Cl | 109Comment: Testing | 99 - 109 mmol/L | EXTERNAL | | | | performed at [facility], [address] | | LAB | | | | [address], | | | | | | [place] [address] | | | | + + + + + + | CO2 | 20 (L)Comment: Testing | 23 - 32 mmol/L | EXTERNAL | | | | performed at [facility], [address] | | LAB | | | | [address], | | | | | | [place] [address] | | | | + + + + + + | Anion Gap | 11Comment: Testing | 5 - 20 mmol/L | EXTERNAL | | | | performed at [facility], [address] | | LAB | | | | [address], | | | | | | [place] [address] | | | | + + + + + + | Glucose, | 74Comment: Testing | 65 - 99 mg/dL | EXTERNAL | | | Fasting | performed at [facility], [address] | | LAB | | | | [address], | | | | | | [place] [address] | | | | + + + + + + | BUN | 8Comment: Testing | 8 - 25 mg/dL | EXTERNAL | | | | performed at [facility], [address] | | LAB | | | | [address], | | | | | | [place] [address] | | | | + + + + + + | Creatinine | 0.57Comment: Testing | 0.50 - 1.00 | EXTERNAL | | | | performed at [facility], [address] | mg/dL | LAB | | | | [address], | | | | | | [place] [address] | | | | + + + + + + | BUN/Creatin | 14Comment: Testing | | EXTERNAL | | | ine Ratio | performed at [facility], [address] | | LAB | | | | [address], | | | | | | [place] [address] | | | | + + + + + + | Calcium | 8.5Comment: Testing | 8.5 - 10.5 | EXTERNAL | | | | performed at [facility], [address] | mg/dL | LAB | | | | [address], | | | | | | [place] [address] | | | | + + + + + + | Protein, | 5.9 (L)Comment: Testing | 6.3 - 8.2 g/dL | EXTERNAL | | | Total | performed at [facility], [address] | | LAB | | | | [address], | | | | | | [place] [address] | | | | + + + + + + | Albumin | 2.7 (L)Comment: Testing | 3.6 - 5.0 g/dL | EXTERNAL | | | | performed at [facility], [address] | | LAB | | | | [address], | | | | | | [place] [address] | | | | + + + + + + | Globulin | 3.2Comment: Testing | 1.3 - 4.9 g/dL | EXTERNAL | | | | performed at [facility], [address] | | LAB | | | | [address], | | | | | | [place] [address] | | | | + + + + + + | A/G Ratio | 0.8 (L)Comment: Testing | 1.0 - 2.4 | EXTERNAL | | | | performed at [facility], [address] | | LAB | | | | [address], | | | | | | [place] [address] | | | | + + + + + + | Bilirubin | 0.4Comment: Testing | 0.1 - 1.5 mg/dL | EXTERNAL | | | Total | performed at [facility], [address] | | LAB | | | | [address], | | | | | | [place] [address] | | | | + + + + + + | ALP, | 137 (H)Comment: Testing | 35 - 115 U/L | EXTERNAL | | | External | performed at [facility], [address] | | LAB | | | | [address], | | | | | | [place] [address] | | | | + + + + + + | AST | 13Comment: Testing | 10 - 45 U/L | EXTERNAL | | | | performed at [facility], [address] | | LAB | | | | [address], | | | | | | [place] [address] | | | | + + + + + + | ALT | 13Comment: Testing | 10 - 65 U/L | EXTERNAL | | | | performed at [facility], [address] | | LAB | | | | [facility], | | | | | | [place] [address] | | | | + + + [...] | | | | | | at [facility], [address] | | | | | [address], | | | | | | [place] [address] | | | | + + + + + + + + | Specimen | + + | Blood specimen | | (specimen) | + + + +---------+ + + | Performing | Address | City/State/Zipcode | Phone Number | | Organization | | | | + +---------+ + + | EXTERNAL LAB | | | | + +---------+ + + Protime INR (11/08/2014 3:39 AM PDT) + + + + + [...] | | | | | performed at [facility] | | | | | | [address];[place], [place] | | | | | | [address] | | | | + + + [...] + +---------+ + + External Lab: CBC (11/08/2014 3:39 AM PDT) + + + + + + | Component | Value | Ref Range | Performed | Pathologist | | | | | At | Signature | + + + + + + | WBC | 17.19 (H)Comment: | 3.80 - 11.00 | EXTERNAL | | | | Testing performed at | K/uL | LAB | | | | [facility], [address] | | | | | | [place] | | | | | | [address] | | | | + + + + + + | RED CELL | 4.07Comment: Testing | 3.70 - 5.10 | EXTERNAL | | | COUNT | performed at [facility], [address] | M/uL | LAB | | | | [address], | | | | | | [place] [address] | | | | + + + + + + | Hgb | 12.3Comment: Testing | 11.3 - 15.5 | EXTERNAL | | | | performed at [facility], [address] | g/dL | LAB | | | | [address], | | | | | | [place] [address] | | | | + + + + + + | Hematocrit, | 38.1Comment: Testing | 34.0 - 46.0 % | EXTERNAL | | | POC | performed at [facility], [address] | | LAB | | | | [address], | | | | | | [place] [address] | | | | + + + + + + | MCV | 93.6Comment: Testing | 80.0 - 100.0 fl | EXTERNAL | | | | performed at [facility], [address] | | LAB | | | | [address], | | | | | | [place] [address] | | | | + + + + + + | MCH | 30.2Comment: Testing | 27.0 - 34.0 pg | EXTERNAL | | | | performed at [facility], [address] | | LAB | | | | [address], | | | | | | [place] [address] | | | | + + + + + + | MCHC | 32.2Comment: Testing | 32.0 - 35.5 | EXTERNAL | | | | performed at [facility], [address] | g/dL | LAB | | | | [address], | | | | | | [place] [address] | | | | + + + + + + | RDW-CV | 59.1 (H)Comment: Testing | 37 - 53 fl | EXTERNAL | | | | performed at [facility], [address] | | LAB | | | | [address], | | | | | | [place] [address] | | | | + + + + + + | Platelet | 390Comment: Testing | 150 - 400 K/uL | EXTERNAL | | | Count | performed at [facility], [address] | | LAB | | | Plasma | [address], | | | | | | [place] [address] | | | | + + + + + + | MPV | 8.4Comment: Testing | fl | EXTERNAL | | | | performed at [facility], [address] | | LAB | | | | [address] [place], | | | | | | [place] [address] | | | | + + + + + + | Differentia | AUTOMATEDComment: | | EXTERNAL | | | l Type | Testing performed at | | LAB | | | | [facility], [address] | | | | | | [place] | | | | | | [address] | | | | + + + + + + | % Segmented | 69.87Comment: Testing | % | EXTERNAL | | | | performed at [facility], [address] | | LAB | | | Neutrophils | [address], | | | | | | [place] [address] | | | | + + + + + + | % | 16.92Comment: Testing | % | EXTERNAL | | | Lymphocytes | performed at [facility], [address] | | LAB | | | | [address], | | | | | | [place], [place] [address] | | | | + + + + + + | % Monocytes | 11.85Comment: Testing | % | EXTERNAL | | | | performed at [facility], [address] | | LAB | | | | [address], | | | | | | [place], [place] [address] | | | | + + + + + + | % | 0.93Comment: Testing | % | EXTERNAL | | | Eosinophils | performed at [facility], [address] | | LAB | | | | [address], | | | | | | [place], [place] [address] | | | | + + + + + + | % Basophils | 0.43Comment: Testing | % | EXTERNAL | | | | performed at [facility], [address] | | LAB | | | | [address], | | | | | | [place] [address] | | | | + + + + + + | Absolute | 12.01 (H)Comment: | 1.90 - 7.40 | EXTERNAL | | | Segmented | Testing performed at | K/uL | LAB | | | Neutrophils | [facility], [address] | | | | | | [place] | | | | | | [address] | | | | + + + + + + | Absolute | 2.91Comment: Testing | 1.00 - 3.90 | EXTERNAL | | | Lymphocytes | performed at [facility], [address] | K/uL | LAB | | | | [address] [place], | | | | | | [place] [address] | | | | + + + + + + | Absolute | 2.04 (H)Comment: Testing | 0.00 - 0.80 | EXTERNAL | | | Monocytes | performed at [facility], [address] | K/uL | LAB | | | | [address] [place], | | | | | | [place] [address] | | | | + + + + + + | Absolute | 0.16Comment: Testing | 0.00 - 0.50 | EXTERNAL | | | Eosinophils | performed at [facility], [address] | K/uL | LAB | | | | [address], | | | | | | [place] [address] | | | | + + + + + + | Absolute | 0.07Comment: Testing | 0.00 - 0.10 | EXTERNAL | | | Basophils | performed at [facility], [address] | K/[address]L | LAB | | | | [address], | | | | | | [place] [address] | | | | + + + + + + | RBC | 2+Comment: ANISONORMAL | | EXTERNAL | | | Morphology | PLT MORPHTesting | | LAB | | | | performed at [facility], [address] | | | | | | [address], | | | | | | [place] [address] | | | | | | | [...] + +---------+ + + Comprehensive Metabolic Panel (11/08/2014 3:39 AM PDT) + + + + + + | Component | Value | Ref Range | Performed | Pathologist | | | | | At | Signature | + + + + + + | Na | 134 (L)Comment: Testing | 135 - 143 | EXTERNAL | | | | performed at [facility], [address] | mmol/L | LAB | | | | [address] [place], | | | | | | [place] [address] | | | | + + + + + + | K | 2.7 (LL)Comment: RESULT | 3.5 - 4.9 | EXTERNAL | | | | READ BACK BY: YOANNA Gonsalez | mmol/L | LAB | | | | @ 2OP 4:49 11/08/14 | | | | | | DHTesting performed at | | | | | | [facility], [address] | | | | | | [place] | | | | | | [address] | | | | + + + + + + | Cl | 104Comment: Testing | 99 - 109 mmol/L | EXTERNAL | | | | performed at [facility], [address] | | LAB | | | | [address] [place], | | | | | | [place] [address] | | | | + + + + + + | CO2 | 21 (L)Comment: Testing | 23 - 32 mmol/L | EXTERNAL | | | | performed at [facility], [address] | | LAB | | | | [address] [place], | | | | | | [place] [address] | | | | + + + + + + | Anion Gap | 12Comment: Testing | 5 - 20 mmol/L | EXTERNAL | | | | performed at [facility], [address] | | LAB | | | | [address], | | | | | | [place] [address] | | | | + + + + + + | Glucose, | 83Comment: Testing | 65 - 99 mg/dL | EXTERNAL | | | Fasting | performed at [facility], [address] | | LAB | | | | [address], | | | | | | [place] [address] | | | | + + + + + + | BUN | 8Comment: Testing | 8 - 25 mg/dL | EXTERNAL | | | | performed at [facility], [address] | | LAB | | | | [address], | | | | | | [place] [address] | | | | + + + + + + | Creatinine | 0.52Comment: Testing | 0.50 - 1.00 | EXTERNAL | | | | performed at [facility], [address] | mg/dL | LAB | | | | [address], | | | | | | [place] [address] | | | | + + + + + + | BUN/Creatin | 15Comment: Testing | | EXTERNAL | | | ine Ratio | performed at [facility], [address] | | LAB | | | | [address], | | | | | | [place] [address] | | | | + + + + + + | Calcium | 8.6Comment: Testing | 8.5 - 10.5 | EXTERNAL | | | | performed at [facility], [address] | mg/dL | LAB | | | | [address], | | | | | | [place] [address] | | | | + + + + + + | Protein, | 5.8 (L)Comment: Testing | 6.3 - 8.2 g/dL | EXTERNAL | | | Total | performed at [facility], [address] | | LAB | | | | [address], | | | | | | [place] [address] | | | | + + + + + + | Albumin | 2.9 (L)Comment: Testing | 3.6 - 5.0 g/dL | EXTERNAL | | | | performed at [facility], [address] | | LAB | | | | [address], | | | | | | [place] [address] | | | | + + + + + + | Globulin | 2.9Comment: Testing | 1.3 - 4.9 g/dL | EXTERNAL | | | | performed at [facility], [address] | | LAB | | | | [address], | | | | | | [place] [address] | | | | + + + + + + | A/G Ratio | 1.0Comment: Testing | 1.0 - 2.4 | EXTERNAL | | | | performed at [facility], [address] | | LAB | | | | [address], | | | | | | [place] [address] | | | | + + + + + + | Bilirubin | 0.7Comment: Testing | 0.1 - 1.5 mg/dL | EXTERNAL | | | Total | performed at [facility], [address] | | LAB | | | | [address], | | | | | | [place] [address] | | | | + + + + + + | ALP, | 169 (H)Comment: Testing | 35 - 115 U/L | EXTERNAL | | | External | performed at [facility], [address] | | LAB | | | | [address], | | | | | | [place] [address] | | | | + + + + + + | AST | 16Comment: Testing | 10 - 45 U/L | EXTERNAL | | | | performed at [facility], [address] | | LAB | | | | [address], | | | | | | [place] [address] | | | | + + + + + + | ALT | 17Comment: Testing | 10 - 65 U/L | EXTERNAL | | | | performed at [facility], [address] | | LAB | | | | [place], | | | | | | [place] [address] | | | | + + + [...] [address] | | | | | [address], | | | | | | [place] [address] | | | | + + + + + + + + | Specimen | + + | Blood specimen | | (specimen) | + + + +---------+ + + | Performing | Address | City/State/Zipcode | Phone Number | | Organization | | | | + +---------+ + + | EXTERNAL LAB | | | | + +---------+ + + Protein, Total (11/07/2014 3:34 PM PDT) + + + + + + | Component | Value | Ref Range | Performed | Pathologist | | | | | At | Signature | + + + + + + | Protein, | 6.2 (L)Comment: Testing | 6.3 - 8.2 g/dL | EXTERNAL | | | Total | performed at [facility], [address] | | LAB | | | | [place], | | | | | | [place] [address] | | | | + + + + + + + + | Specimen | + + | Cerebrospinal fluid | | sample (specimen) | + + + +---------+ + + | Performing | Address | City/State/Zipcode | Phone Number | | Organization | | | | + +---------+ + + | EXTERNAL LAB | | | | + +---------+ + + MRI Brain Wo MRA Head Wo (11/07/2014 10:35 AM PDT) + + | Specimen | + + | | + + + + + | Impressions | Performed At | + + + | 1. Supratentorial, pontine, and cerebellar white matter lesions, | | | as above. These may be due to a demyelinating process such as multiple | | | sclerosis. Clinically correlate. 2. No evidence of acute | | | intracranial infarct, hemorrhage, or mass. 3. No evidence of | | | flow-limiting intracranial arterial stenosis or aneurysm. | | | | | + + + + + + | Narrative | Performed At | + + + | [facility] MRI BRAIN WO AND MRA HEAD 11/07/2014 10:35 AM | | | HISTORY: 59 years. Female. Headache. TECHNIQUE: Using a 1.5 | | | Migdalia MRI unit, standard multiplanar noncontrast sequences through the | | | brain were obtained. Additionally, 3-D, flight MRA imaging through | | | the intracranial arterial circulation was performed with maximum | | | intensity projection images rendered. COMPARISON: Head CT dated | | | 11/05/2014. FINDINGS: No acute infarct or intracranial hemorrhage | | | is found. No hydrocephalus or intracranial mass is seen. Mild | | | supratentorial white matter disease is noted, as evidenced by | | | scattered juxtacortical and periventricular high FLAIR and T2 signal | | | foci. Some white matter abnormalities are noted perpendicular to the | | | body of the left lateral ventricle, perhaps best seen on image 22, | | | series 10 and image 9, series 6. A dominant white matter lesion | | | example in this region measures 12 mm on image 8, series 6. A dominant | | | juxtacortical white matter lesion in the superior left frontal lobe | | | measures 8 mm on image 25, series 10. The orbital structures are | | | normal. A small right maxillary mucus retention cyst measures 18 mm. | | | No worrisome bone lesions are found. The corpus callosum appears | | | normal. Small subcentimeter foci of high FLAIR and T2 signal are seen | | | in the booker, the largest measuring 5 mm. Small subcentimeter foci of | | | probable white matter disease are seen within the cerebellum numbering | | | five on the right, and one on the left, ranging in size from 2 to 5 | | | mm. The left vertebral artery is dominant. Both vertebral | | | arteries are patent. The basilar artery and basilar arterial branches | | | including the posterior cerebral arteries are widely patent. The | | | bilateral internal carotid, middle cerebral, and anterior cerebral | | | arteries are widely patent. No anterior communicating artery aneurysm | | | is found. 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 | | + + + + + | Procedure Note | + + | Tez Roper Conversion - 11/24/2018 6:38 AM PDT [facility] | | HEAD11/07/2014 10:35 AM HISTORY:59 years. Female. Headache. TECHNIQUE:Using a 1.5 Migdalia | | MRI unit, standard multiplanar noncontrast sequences through the brain were obtained. | | Additionally, 3-D, flight MRA imaging through the intracranial arterial circulation was | | performed with maximum intensity projection images rendered. COMPARISON:Head CT dated | | 11/05/2014. FINDINGS:No acute infarct or intracranial hemorrhage is found. No | | hydrocephalus or intracranial mass is seen. Mild supratentorial white matter disease is | | noted, as evidenced by scattered juxtacortical and periventricular high FLAIR and T2 | | signal foci. Some white matter abnormalities are noted perpendicular to the body of the | | left lateral ventricle, perhaps best seen on image 22, series 10 and image 9, series 6. | | A dominant white matter lesion example in this region measures 12 mm on image 8, series | | 6. A dominant juxtacortical white matter lesion in the superior left frontal lobe | | measures 8 mm on image 25, series 10. The orbital structures are normal. A small right | | maxillary mucus retention cyst measures 18 mm. No worrisome bone lesions are found. The | | corpus callosum appears normal. Small subcentimeter foci of high FLAIR and T2 signal are | | seen in the booker, the largest measuring 5 mm. Small subcentimeter foci of probable | | white matter disease are seen within the cerebellum numbering five on the right, and one | | on the left, ranging in size from 2 to 5 mm. The left vertebral artery is dominant. | | Both vertebral arteries are patent. The basilar artery and basilar arterial branches | | including the posterior cerebral arteries are widely patent. The bilateral internal | | carotid, middle cerebral, and anterior cerebral arteries are widely patent. No anterior | | communicating artery aneurysm is found. 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 IMPRESSION: 1. Supratentorial, pontine, and cerebellar white | | matter lesions, as above. These may be due to a demyelinating process such as multiple | | sclerosis. Clinically correlate. 2. No evidence of acute intracranial infarct, | | hemorrhage, or mass. 3. No evidence of flow-limiting intracranial arterial stenosis or | | aneurysm. | |1. Supratentorial, pontine, and cerebellar white matter lesions, as above. These may be du e to a demyelinating process such as multiple sclerosis. Clinically correlate. | | | |2. No evidence of acute intracranial infarct, hemorrhage, or mass. | | | |3. No evidence of flow-limiting intracranial arterial stenosis or aneurysm. | | | | | + + Protime INR (11/07/2014 5:24 AM PDT) + + + + + [...] | | | | | performed at [facility];[address] | | | | | | [facility];[place], [place] | | | | | | [address] | | | | + + + [...] + +---------+ + + External Lab: RAPHAEL (11/07/2014 4:34 AM PDT) + + + + + + | Component | Value | Ref Range | Performed | Pathologist | | | | | At | Signature | + + + + + + | WBC | 14.72 (H)Comment: | 3.80 - 11.00 | EXTERNAL | | | | Testing performed at | K/uL | LAB | | | | [facility], [address] | | | | | | [place] | | | | | | [address] | | | | + + + + + + | RED CELL | 4.28Comment: Testing | 3.70 - 5.10 | EXTERNAL | | | COUNT | performed at [facility], [address] | M/uL | LAB | | | | [address], | | | | | | [place] [address] | | | | + + + + + + | Hgb | 13.0Comment: Testing | 11.3 - 15.5 | EXTERNAL | | | | performed at [facility], [address] | g/dL | LAB | | | | [address], | | | | | | [place] [address] | | | | + + + + + + | Hematocrit, | 40.0Comment: Testing | 34.0 - 46.0 % | EXTERNAL | | | POC | performed at [facility], [address] | | LAB | | | | [address], | | | | | | [place] [address] | | | | + + + + + + | MCV | 93.4Comment: Testing | 80.0 - 100.0 fl | EXTERNAL | | | | performed at [facility], [address] | | LAB | | | | [address], | | | | | | [place] [address] | | | | + + + + + + | MCH | 30.3Comment: Testing | 27.0 - 34.0 pg | EXTERNAL | | | | performed at [facility], [address] | | LAB | | | | [place], | | | | | | [place] [address] | | | | + + + + + + | MCHC | 32.5Comment: Testing | 32.0 - 35.5 | EXTERNAL | | | | performed at [facility], [address] | g/dL | LAB | | | | [place], | | | | | | [place] [address] | | | | + + + + + + | RDW-CV | 57.8 (H)Comment: Testing | 37 - 53 fl | EXTERNAL | | | | performed at [facility], [address] | | LAB | | | | [address] [place], | | | | | | [place] [address] | | | | + + + + + + | Platelet | 403 (H)Comment: Testing | 150 - 400 K/uL | EXTERNAL | | | Count | performed at [facility], [address] | | LAB | | | Plasma | [address], | | | | | | [place] [address] | | | | + + + + + + | MPV | 8.4Comment: Testing | fl | EXTERNAL | | | | performed at [facility], [address] | | LAB | | | | [address], | | | | | | [place] [address] | | | | + + + + + + | Differentia | AUTOMATEDComment: | | EXTERNAL | | | l Type | Testing performed at | | LAB | | | | [facility], [address] | | | | | | [place] | | | | | | [address] | | | | + + + + + + | % Segmented | 69.85Comment: Testing | % | EXTERNAL | | | | performed at [facility], [address] | | LAB | | | Neutrophils | [address], | | | | | | [place] [address] | | | | + + + + + + | % | 17.96Comment: Testing | % | EXTERNAL | | | Lymphocytes | performed at [facility], [address] | | LAB | | | | [address], | | | | | | [place] [address] | | | | + + + + + + | % Monocytes | 11.10Comment: Testing | % | EXTERNAL | | | | performed at [facility], [address] | | LAB | | | | [address], | | | | | | [place] [address] | | | | + + + + + + | % | 0.77Comment: Testing | % | EXTERNAL | | | Eosinophils | performed at [facility], [address] | | LAB | | | | [address], | | | | | | [place] [address] | | | | + + + + + + | % Basophils | 0.32Comment: Testing | % | EXTERNAL | | | | performed at [facility], [address] | | LAB | | | | [place], | | | | | | [place] [address] | | | | + + + + + + | Absolute | 10.28 (H)Comment: | 1.90 - 7.40 | EXTERNAL | | | Segmented | Testing performed at | K/uL | LAB | | | Neutrophils | [facility], [address] | | | | | | [place] | | | | | | [address] | | | | + + + + + + | Absolute | 2.64Comment: Testing | 1.00 - 3.90 | EXTERNAL | | | Lymphocytes | performed at [facility], [address] | K/uL | LAB | | | | [address], | | | | | | [place] [address] | | | | + + + + + + | Absolute | 1.63 (H)Comment: Testing | 0.00 - 0.80 | EXTERNAL | | | Monocytes | performed at [facility], [address] | [address] | LAB | | | | [address], | | | | | | [place] [address] | | | | + + + + + + | Absolute | 0.11Comment: Testing | 0.00 - 0.50 | EXTERNAL | | | Eosinophils | performed at [facility], [address] | K[address]uL | LAB | | | | [address], | | | | | | [place] [address] | | | | + + + + + + | Absolute | 0.05Comment: Testing | 0.00 - 0.10 | EXTERNAL | | | Basophils | performed at [facility], [address] | K[address] | LAB | | | | [address], | | | | | | [place] [address] | | | | + + + [...] + +---------+ + + Comprehensive Metabolic Panel (11/07/2014 4:34 AM PDT) + + + + + + | Component | Value | Ref Range | Performed | Pathologist | | | | | At | Signature | + + + + + + | Na | 128 (L)Comment: Testing | 135 - 143 | EXTERNAL | | | | performed at [facility], [address] | mmol/L | LAB | | | | [address], | | | | | | [place] [address] | | | | + + + + + + | K | 3.1 (L)Comment: Testing | 3.5 - 4.9 | EXTERNAL | | | | performed at [facility], [address] | mmol/L | LAB | | | | [address], | | | | | | [place] [address] | | | | + + + + + + | Cl | 96 (L)Comment: Testing | 99 - 109 mmol/L | EXTERNAL | | | | performed at [facility], [address] | | LAB | | | | [address], | | | | | | [place] [address] | | | | + + + + + + | CO2 | 24Comment: Testing | 23 - 32 mmol/L | EXTERNAL | | | | performed at [facility], [address] | | LAB | | | | [address], | | | | | | [place] [address] | | | | + + + + + + | Anion Gap | 11Comment: Testing | 5 - 20 mmol/L | EXTERNAL | | | | performed at [facility], [address] | | LAB | | | | [address], | | | | | | [place] [address] | | | | + + + + + + | Glucose, | 102 (H)Comment: Testing | 65 - 99 mg/dL | EXTERNAL | | | Fasting | performed at [facility], [address] | | LAB | | | | [address], | | | | | | [place] [address] | | | | + + + + + + | BUN | 6 (L)Comment: Testing | 8 - 25 mg/dL | EXTERNAL | | | | performed at [facility], [address] | | LAB | | | | [address], | | | | | | [place] [address] | | | | + + + + + + | Creatinine | 0.49 (L)Comment: Testing | 0.50 - 1.00 | EXTERNAL | | | | performed at [facility], [address] | mg/dL | LAB | | | | [address] [place] [place], | | | | | | [place] [address] | | | | + + + + + + | BUN/Creatin | 12Comment: Testing | | EXTERNAL | | | ine Ratio | performed at [facility], [address] | | LAB | | | | [address], | | | | | | [place] [address] | | | | + + + + + + | Calcium | 8.5Comment: Testing | 8.5 - 10.5 | EXTERNAL | | | | performed at [facility], [address] | mg/dL | LAB | | | | [address], | | | | | | [place] [address] | | | | + + + + + + | Protein, | 6.1 (L)Comment: Testing | 6.3 - 8.2 g/dL | EXTERNAL | | | Total | performed at [facility], [address] | | LAB | | | | [address], | | | | | | [place] [address] | | | | + + + + + + | Albumin | 3.0 (L)Comment: Testing | 3.6 - 5.0 g/dL | EXTERNAL | | | | performed at [facility], [address] | | LAB | | | | [address], | | | | | | [place] [address] | | | | + + + + + + | Globulin | 3.1Comment: Testing | 1.3 - 4.9 g/dL | EXTERNAL | | | | performed at [facility], [address] | | LAB | | | | [address], | | | | | | [place] [address] | | | | + + + + + + | A/G Ratio | 1.0Comment: Testing | 1.0 - 2.4 | EXTERNAL | | | | performed at [facility], [address] | | LAB | | | | [address], | | | | | | [place] [address] | | | | + + + + + + | Bilirubin | 0.7Comment: Testing | 0.1 - 1.5 mg/dL | EXTERNAL | | | Total | performed at [facility], [address] | | LAB | | | | [address], | | | | | | [place] [address] | | | | + + + + + + | ALP, | 208 (H)Comment: Testing | 35 - 115 U/L | EXTERNAL | | | External | performed at [facility], [address] | | LAB | | | [address], | | | | | | [place] [address] | | | | + + + + + + | AST | 21Comment: Testing | 10 - 45 U/L | EXTERNAL | | | | performed at [facility], [address] | | LAB | | | | [address], | | | | | | [place] [address] | | | | + + + + + + | ALT | 21Comment: Testing | 10 - 65 U/L | EXTERNAL | | | | performed at [facility], [address] | | LAB | | | | [address], | | | | | | [place] [address] | | | | + + + [...] | | | | | | at [facility], [address] | | | | | [address], | | | | | | [place] [address] | | | | + + + + + + + + | Specimen | + + | Blood specimen | | (specimen) | + + + +---------+ + + | Performing | Address | City/State/Zipcode | Phone Number | | Organization | | | | + +---------+ + + | EXTERNAL LAB | | | | + +---------+ + + Culture, Fungus (11/06/2014 3:59 PM PDT) + + | Specimen | + + | | + + + + + | Narrative | Performed At | + + + | Specimen Description CEREBROSPINAL FLUID | EXTERNAL LAB | | CULTURE NO FUNGUS ISOLATED | | | Testing performed | | | at [facility], [address] [place] [address] | | + + + + +---------+ + + | Performing | Address | City/State/Zipcode | Phone Number | | Organization | | | | + +---------+ + + | EXTERNAL LAB | | | | + +---------+ + + Cryptococcal Antigen (11/06/2014 3:59 PM PDT) + + + + + + | Component | Value | Ref Range | Performed | Pathologist | | | | | At | Signature | + + + + + + | SPECIMEN | CEREBROSPINAL | | EXTERNAL | | | SOURCE? | FLUIDComment: Testing | | LAB | | | | performed at [facility];[address] | | | | | [address] [facility];[place] | | | | | | [address] | | | | + + + + + + | CRYPTO AG | Comment: ACCESSION NO. | | EXTERNAL | | | CSF | | | LAB | | | | [id number] | | | | | | SOURCE | | | | | | CEREBROSPINAL | | | | | | FLUIDRESULT | | | | | | | | | | | | NEGATIVETesting | | | | | | performed at [facility] | | | | | | [facility], | | | | | | [address] | | | | | | [address] | | | | + + + + + + | CRYPTOCOCCU | REPORT STATUS | | EXTERNAL | | | S AG, CSF | FINAL | | LAB | | | | 11/08/2014Comment: | | | | | | Testing performed at | | | | | | Located Within [facility] | | | | | | Center, [address], | | | | | | [place] [address] | | | | + + + + + + + + | Specimen | + + | Cerebrospinal fluid | | sample (specimen) | + + + +---------+ + + | Performing | Address | City/State/Zipcode | Phone Number | | Organization | | | | + +---------+ + + | EXTERNAL LAB | | | | + +---------+ + + HISTORICAL MICROBIOLOGY RESULT (11/06/2014 3:57 PM PDT) + + | Specimen | + + | Stool specimen | | (specimen) | + + + + + | Narrative | Performed At | + + + | Toxigenic C Difficile NEGATIVE Testing | EXTERNAL LAB | | performed at [facility];[address] [place] [address];[place] [address] 027 NAP1 BI | | | 027 NAP1 BI PRESUMPTIVE NEGATIVE | | | Detection of 027 NAP1 BI strains of C. difficile is presumptive and | | | for epidemiological purposes and not intended to guide or monitor | | | treatment for C. difficile infections. Testing performed at [facility];[address] | | | [facility];[place] [address] | | + + + + +---------+ + + | Performing | Address | City/State/Zipcode | Phone Number | | Organization | | | | + +---------+ + + | EXTERNAL LAB | | | | + +---------+ + + Culture, Stool (11/06/2014 3:57 PM PDT) + + | Specimen | + + | Stool specimen | | (specimen) | + + + + + | Narrative | Performed At | + + + | Specimen Description STOOL CULTURE | EXTERNAL LAB | | Unable to perform Shigatoxin | | | testing due to lack of gram negative growth. | | | NO NORMAL GRAM NEGATIVE ENTERIC TIM | | | ISOLATED NEGATIVE | | | FOR SALMONELLA, SHIGELLA AND CAMPYLOBACTER | | | IF A YERSINIA OR VIBRIO IS SUSPECTED, | | | PLEASE CONTACT THE MICRO LAB FOR SPECIAL TESTING. | | | Testing performed at [facility], [address] | | | [place] [address] | | + + + + +---------+ + + | Performing | Address | City/State/Zipcode | Phone Number | | Organization | | | | + +---------+ + + | EXTERNAL LAB | | | | + +---------+ + + External Lab: Varicella Zoster Virus Ab, IgG (11/06/2014 3:43 PM PDT) + + | Specimen | + + | | + + + + + | Narrative | Performed At | + + + | SOURCE CEREBROSPINAL FLUID | EXTERNAL LAB | | Testing performed at [facility];[address] [place] [address];[place] [address] RESULT | | | NEGATIVE Reference range: | | | NEGATIVE A NEGATIVE RESULT DOES NOT RULE OUT THE PRESENCE OF A PCR | | | INHIBITOR IN THE SPECIMEN OR A VZV DNA CONCENTRATION BELOW THE LIMIT | | | OF DETECTION OF THIS ASSAY. THE LIMIT OF DETECTION OF THIS ASSAY IS 1 | | | COPY PER MICROLITER OF PATIENT SPECIMEN. Testing performed at [facility], | | | [address] [place] [address] COMMENT | | | SEE BELOW THIS TEST WAS DEVELOPED AND ITS | | | PERFORMANCE CHARACTERISTICS DETERMINED BY [facility]. THE U.S. FOOD AND | | | DRUG ADMINISTRATION (FDA) HAS NOT APPROVED OR CLEARED THIS TEST. | | | HOWEVER, FDA APPROVAL OR CLEARANCE IS CURRENTLY NOT REQUIRED FOR | | | CLINICAL USE OF THIS TEST. THE RESULTS ARE NOT INTENDED TO BE USED | | | THE SOLE MEANS FOR CLINICAL DIAGNOSIS OR PATIENT MANAGEMENT | | | DECISIONS. [facility] IS AUTHORIZED UNDER CLINICAL LABORATORY IMPROVEMENT | | | AMENDMENTS (CLIA) TO PERFORM HIGH-COMPLEXITY TESTING. Testing | | | performed at [facility], [address] [place] [address] | | + + + + +---------+ + + | Performing | Address | City/State/Zipcode | Phone Number | | Organization | | | | + +---------+ + + | EXTERNAL LAB | | | | + +---------+ + + Culture, CSF, Smear (11/06/2014 3:43 PM PDT) + + | Specimen | + + | Cerebrospinal fluid | | sample (specimen) | + + + + + | Narrative | Performed At | + + + | Specimen Description CEREBROSPINAL FLUID GRAM | EXTERNAL LAB | | STAIN WBC'S SEEN | | | NO ORGANISMS SEEN | | | STAIN PERFORMED ON CYTOSPIN | | | Testing performed at | | | [facility];[address] [facility];[place] [address] CULTURE | | | NO GROWTH | | | Testing performed at [facility], [address] [facility], | | | [place] [address] | | + + + + +---------+ + + | Performing | Address | City/State/Zipcode | Phone Number | | Organization | | | | + +---------+ + + | EXTERNAL LAB | | | | + +---------+ + + HISTORICAL MICROBIOLOGY RESULT (11/06/2014 3:41 PM PDT) + + | Specimen | + + | | + + + + + | Narrative | Performed At | + + + | SPECIMEN SOURCE CEREBROSPINAL FLUID | EXTERNAL LAB | | Testing performed at [facility];[address] [facility];[place] [address] ENTEROVIRUS | | | PCR NEGATIVE INTENDED USE: THE | | | [employer] XPERT EV ASSAY IS A REVERSE CHILDCARE AIDE POLYMERASE CHAIN | | | REACTION (RT-PCR) USING THE [employer] DX SYSTEM FOR THE | | | PRESUMPTIVE QUALITATIVE DETECTION OF ENTEROVIRUS (EV) RNA IN | | | CEREBROSPINAL FLUID (CSF) SPECIMENS FROM INDIVIDUALS WITH SIGNS | | | AND SYMPTOMS OF MENINGITIS. THIS TEST, IN CONJUNCTION WITH OTHER | | | LABORATORY RESULTS AND CLINICAL INFORMATION, MAY BE USED | | | AN AID IN THE LABORATORY DIAGNOSIS OF ENTEROVIRUS INFECTIONS IN | | | PATIENTS WITH A CLINICAL SUSPICION OF MENINGITIS OR | | | MENINGOENCEPHALITIS. ASSAY PERFORMANCE CHARACTERISTICS HAVE NOT | | | BEEN ESTABLISHED FOR IMMUNOCOMPROMISED OR IMMUNOSUPPRESSED | | | PATIENTS. INTERPRETATION: ENTEROVIRUS DETECTION BY RT-PCR | | | NEGATIVE ..... ENTEROVIRUS NUCLEIC ACID NOT DETECTED | | | BY RT-PCR POSITIVE ..... ENTEROVIRUS NUCLEIC | | | ACID DETECTED BY RT-PCR Testing | | | performed at [facility], [address] [place] [address] | | + + + + +---------+ + + | Performing | Address | City/State[facility] | Phone Number | | Organization | | | | + +---------+ + + | EXTERNAL LAB | | | | + +---------+ + + HISTORICAL MICROBIOLOGY RESULT (11/06/2014 3:41 PM PDT) + + | Specimen | + + | Cerebrospinal fluid | | sample (specimen) | + + + + + | Narrative | Performed At | + + + | MICRO SPECIMEN SOURCE CEREBROSPINAL FLUID | EXTERNAL LAB | | Testing performed at [facility];[address] [place] [address];[place] [address] SOURCE | | | SEE BELOW CEREBROSPINAL FLUID | | | Testing performed by [facility] [place] [address] HSV DNA Type 1 | | | NOT DETECTED Testing performed at [facility], [address] | | | [place] [address] HSV DNA Type 2 | | | NOT DETECTED Testing performed at [facility], [address] [facility], | | | [place] [address] COMMENT | | | SEE BELOW A DIAGNOSIS OF HSV INFECTION SHOULD NOT RELY ONLY ON THE | | | RESULT OF A PCR ASSAY BUT SHOULD BE CONSIDERED IN CONJUNCTION WITH | | | CLINICAL PRESENTATION AND OTHER ESTABLISHED DIAGNOSTIC TESTS. A | | | NEGATIVE PCR RESULT INDICATES ONLY THE ABSENCE OF HSV DNA OR HSV DNA | | | IN CONCENTRATIONS BELOW THE LEVEL OF DETECTION OF THE ASSAY AND DOES | | | NOT EXCLUDE THE DIAGNOSIS OF DISEASE. Testing performed at [facility], [address] | | [place] [id number] COMMENT | | | SEE BELOW THIS TEST WAS DEVELOPED AND ITS | | | PERFORMANCE CHARACTERISTICS DETERMINED BY [facility]. THE U.S. FOOD AND | | | DRUG ADMINISTRATION (FDA) HAS NOT APPROVED OR CLEARED THIS TEST. | | | HOWEVER, FDA APPROVAL OR CLEARANCE IS CURRENTLY NOT REQUIRED FOR | | | CLINICAL USE OF THIS TEST. THE RESULTS ARE NOT INTENDED TO BE USED | | | THE SOLE MEANS FOR CLINICAL DIAGNOSIS OR PATIENT MANAGEMENT | | | DECISIONS. [facility] IS AUTHORIZED UNDER CLINICAL LABORATORY IMPROVEMENT | | | AMENDMENTS (CLIA) TO PERFORM HIGH-COMPLEXITY TESTING. Testing | | | performed at [facility], [address] [facility] [address] | | + + + + +---------+ + + | Performing | Address | City/State/Zipcode | Phone Number | | Organization | | | | + +---------+ + + | EXTERNAL LAB | | | | + +---------+ + + Cell Count with Differential, CSF (11/06/2014 3:41 PM PDT) + + | Specimen | + + | Cerebrospinal fluid | | sample (specimen) | + + + + + | Narrative | Performed At | + + + | COLOR COLORLESS | EXTERNAL LAB | | Testing performed at [facility];[address] [address];[place] [address] APPEARANCE | | | CLEAR Testing performed at | | | [facility];[place] [address] Tube Number, CSF | | | 3 Testing performed at [facility];[address] | | [address];[place] [address] CSF RBC | | | 7 High Testing performed at [facility];[address] | | [address];[place] [address] CSF WBC | | | 2 Testing performed at [facility];[address];[place], [place] | | | [address] | | + + + + +---------+ + + | Performing | Address | City/State/Zipcode | Phone Number | | Organization | | | | + +---------+ + + | EXTERNAL LAB | | | | + +---------+ + + JESSY BIGGS (11/06/2014 3:41 PM PDT) + + | Specimen | + + | | + + + + + | Narrative | Performed At | + + + | VDRL Quant, CSF NON REACTIVE Testing | EXTERNAL LAB | | performed at [address] [address] | | + + + + +---------+ + + | Performing | Address | City/State/Zipcode | Phone Number | | Organization | | | | + +---------+ + + | EXTERNAL LAB | | | | + +---------+ + + Protein, CSF (11/06/2014 3:41 PM PDT) + + | Specimen | + + | Cerebrospinal fluid | | sample (specimen) | + + + + + | Narrative | Performed At | + + + | CSF TOTAL PROTEIN 59 High | EXTERNAL LAB | | Testing performed at [facility];[address] [place] [address];[place] [address] | | + + + + +---------+ + + | Performing | Address | City/State/Zipcode | Phone Number | | Organization | | | | + +---------+ + + | EXTERNAL LAB | | | | + +---------+ + + Glucose, CSF (11/06/2014 3:41 PM PDT) + + | Specimen | + + | Cerebrospinal fluid | | sample (specimen) | + + + + + | Narrative | Performed At | + + + | CSF GLUCOSE 61 | EXTERNAL LAB | | Testing performed at [facility];[address] [place] [address];[place] [address] | | + + + + +---------+ + + | Performing | Address | City/State/Zipcode | Phone Number | | Organization | | | | + +---------+ + + | EXTERNAL LAB | | | | + +---------+ + + LYME DISEASE, PCR (11/06/2014 3:41 PM PDT) + + + + + + | Component | Value | Ref Range | Performed | Pathologist | | | | | At | Signature | + + + + + + | Source | CEREBROSPINAL | | EXTERNAL | | | | FLUIDComment: Testing | | LAB | | | | performed at [facility] | | | | | | [address];[place], [place] | | | | | | [address] | | | | + + + + + + | Lyme, PCR | NOT DETECTEDComment: | | EXTERNAL | | | | NOT DETECTED - A | | LAB | | | | NEGATIVE RESULT DOES NOT | | | | | | RULE OUT THEPRESENCE OF | | | | | | PCR INHIBITORS IN THE | | | | | | PATIENT SPECIMEN OR | | | | | | ASSAYSPECIFIC NUCLEIC | | | | | | ACID IN CONCENTRATIONS | | | | | | BELOW THE LEVEL | | | | | | OFDETECTION BY THE | | | | | | ASSAY.INTERPRETIVE | | | | | | INFORMATION: B[place] | | | | | | SPECIES DNA DETECTION BY | | | | | | PCRTEST DEVELOPED AND | | | | | | CHARACTERISTICS | | | | | | DETERMINED BY [facility] | | | | | | LABORATORIES.SEE | | | | | | COMPLIANCE STATEMENT B: | | | | | | StatSocial/CSTesting | | | | | | performed at [facility], [address] | | | | | | [facility] | | | | | | [place] [address] | | | | + + + + + + + + | Specimen | + + | | + + + +---------+ + + | Performing | Address | City/State/Zipcode | Phone Number | | Organization | | | | + +---------+ + + | EXTERNAL LAB | | | | + +---------+ + + West Nile Virus Ab, IgG, IgM, CSF (11/06/2014 3:41 PM PDT) + + + + + + | Component | Value | Ref Range | Performed | Pathologist | | | | | At | Signature | + + + + + + | West Nile | <1.30Comment: REFERENCE | | EXTERNAL | | | IgG, CSF | RANGE: IGG <1.30Testing | | LAB | | | | performed at [facility] | | | | | | [facility], [address] | | | | | | [place] | | | | | | [address] | | | | + + + + + + | West Nile | <0.90Comment: REFERENCE | | EXTERNAL | | | IgM, CSF | RANGE: IGM | | LAB | | | | <0.90REFERENCE RANGE: | | | | | | IGG <1.30 | | | | | | IGM | | | | | | <0.90INTERPRETIVE | | | | | | CRITERIA IGG: | | | | | | <1.30 | | | | | | ANTIBODY NOT DETECTED | | | | | | 1.30 | | | | | | - 1.49 EQUIVOCAL | | | | | | | | | | | | >=1.50 ANTIBODY | | | | | | DETECTED IGM: | | | | | | <0.90 | | | | | | ANTIBODY NOT DETECTED | | | | | | 0.90 | | | | | | - 1.10 EQUIVOCAL | | | | | | | | | | | | >1.10 ANTIBODY | | | | | | DETECTEDWEST NILE VIRUS | | | | | | (WNV) IGM IS USUALLY | | | | | | DETECTABLEIN CSF FROM | | | | | | WNV-INFECTED PATIENTS | | | | | | WITHENCEPHALITIS OR | | | | | | MENINGITIS AT THE TIME | | | | | | OFCLINICAL PRESENTATION. | | | | | | BECAUSE IGM ANTIBODY | | | | | | DOESNOT READILY CROSS | | | | | | THE BLOOD-BRAIN BARRIER, | | | | | | IGMANTIBODY IN CSF | | | | | | STRONGLY SUGGESTS ACUTE | | | | | | CENTRALNERVOUS SYSTEM | | | | | | INFECTION. WNV ANTIBODY | | | | | | RESULTSFROM CSF SHOULD | | | | | | BE INTERPRETED WITH | | | | | | CAUTION.POSSIBLE | | | | | | COMPLICATING FACTORS | | | | | | INCLUDE LOW LEVELSOF | | | | | | ANTIBODY FOUND IN CSF, | | | | | | PASSIVE TRANSFER | | | | | | OFANTIBODIES FROM BLOOD, | | | | | | AND CONTAMINATION | | | | | | VIABLOODY SPINAL TAPS. | | | | | | ANTIBODIES INDUCED BY | | | | | | OTHERFLAVIVIRUS | | | | | | INFECTIONS (E.G. DENGUE | | | | | | VIRUS, ST.LISA | | | | | | ENCEPHALITIS VIRUS) MAY | | | | | | SHOWCROSS-REACTIVITY | | | | | | WITH WNV.Testing | | | | | | performed at [facility] | | | | [facility] [employer], [address] | | | | | | [place] | | | | | | [address] | | | | + + + + + + + + | Specimen | + + | | + + + +---------+ + + | Performing | Address | City/State/Zipcode | Phone Number | | Organization | | | | + +---------+ + + | EXTERNAL LAB | | | | + +---------+ + + FL Lumbar Puncture Diagnostic (11/06/2014 3:30 PM PDT) + + | Specimen | + + | | + + + + + | Narrative | Performed At | + + + | PROCEDURE Diagnostic lumbar puncture under fluoroscopic guidance. | | | HISTORY Patient with history of sepsis and altered mental status, | | | transferred from [facility] on November 05, 2014. PRE | | | PROCEDURAL LABORATORY DATA Labs performed: CBC indicates platelet | | | count of 436,000 and INR of 1.3. DIAGNOSTIC IMAGING DATA | | | Noncontrast CT of the head performed on November 05, 2014, indicates | | | normal CT of the brain. * * ALLERGIES* * 1. DEMEROL 2. | | | ERYTHROMYCIN 3. LEVOFLOXACIN 4. REGLAN 5. PENICILLINS | | | MEDICATION ADMINISTERED: None DESCRIPTION OF PROCEDURE I met | | | this patient in the radiology department. The patient was awake, | | | alert, oriented times x 3, and in mild distress. We had a discussion | | | about the procedure, the risks involved, and the alternatives. The | | | patient verbalized understanding of this and their desire was to | | | proceed with the procedure. Therefore, written informed consent was | | | obtained. A preprocedure pause timeout was performed verifying the | | | procedure, site, and the patient; all members of the team are in | | | agreement. The patient placed in the prone position on the | | | fluoroscopy table. A suitable site for lumbar puncture at level L4-L5 | | | was selected. The skin of the back was prepped with Betadine circular | | | scrubs and draped. Local anesthesia was obtained with lidocaine 1% | | | with bicarbonate, with good effect. Under intermittent fluoroscopic | | | observation a 20-gauge 3 inch spinal needle was gradually advanced. | | | There was return of clear colorless cerebrospinal fluid, approximately | | | 18 mL was obtained and distributed into 4 sterile vials. This was | | | sent to the laboratory. When 18 mL was obtained, the procedure was | | | terminated, needle was withdrawn, and a Band-Aid dressing was applied. | | | The patient tolerated the procedure well. No procedural | | | complications were encountered. Total fluoroscopy time: 0.2 | | | minutes Total fluoroscopy dose: 1.8 mGy Opening pressure: 16 | | | cmH20 IMPRESSION Successful Diagnostic lumbar puncture under | | | fluoroscopy. No procedural complications encountered. This | | | report has been prepared with a voice recognition system. The | | | possibility of "sound alike" busher helper errors, addition and/or | | | deletions may occur. If there is any question about this report | | | please contact the author of the report. | | + + + + + | Procedure Note | + + | Judson, Rad Conversion - 11/24/2018 6:38 AM PDT PROCEDUREDiagnostic lumbar puncture | | under fluoroscopic guidance. HISTORYPatient with history of sepsis and altered mental | | status, transferred from [facility] on November 05, 2014. PRE PROCEDURAL | | LABORATORY DATALabs performed: CBC indicates platelet count of 436,000 and INR of 1.3. | | DIAGNOSTIC IMAGING DATANoncontrast CT of the head performed on November 05, 2014, indicates | | normal CT of the brain. * * ALLERGIES* *1. DEMEROL2. ERYTHROMYCIN3. LEVOFLOXACIN4. | | REGLAN5. PENICILLINS MEDICATION ADMINISTERED:None DESCRIPTION OF PROCEDUREI met this | | patient in the radiology department. The patient was awake, alert, oriented times x 3, | | and in mild distress. We had a discussion about the procedure, the risks involved, and | | the alternatives. The patient verbalized understanding of this and their desire was to | | proceed with the procedure. Therefore, written informed consent was obtained. A | | preprocedure pause timeout was performed verifying the procedure, site, and the patient; | | all members of the team are in agreement. The patient placed in the prone position on | | the fluoroscopy table. A suitable site for lumbar puncture at level L4-L5 was selected. | | The skin of the back was prepped with Betadine circular scrubs and draped. Local | | anesthesia was obtained with lidocaine 1% with bicarbonate, with good effect. Under | | intermittent fluoroscopic observation a 20-gauge 3 inch spinal needle was gradually | | advanced. There was return of clear colorless cerebrospinal fluid, approximately 18 mL | | was obtained and distributed into 4 sterile vials. This was sent to the laboratory. When | | 18 mL was obtained, the procedure was terminated, needle was withdrawn, and a Band-Aid | | dressing was applied. The patient tolerated the procedure well. No procedural | | complications were encountered. Total fluoroscopy time: 0.2 minutes Total fluoroscopy | | dose: 1.8 mGy Opening pressure: 16 cmH20 IMPRESSIONSuccessful Diagnostic lumbar puncture | | under fluoroscopy. No procedural complications encountered. This report has been | | prepared with a voice recognition system. The possibility of "sound alike" | | busher helper errors, addition and/or deletions may occur. If there is any question | | about this report please contact the author of the report. | | | |The patient placed in the prone position on the fluoroscopy table. A suitable site for lumb ar puncture at level L4-L5 was selected. The skin of the back was prepped with Betadine circ ular scrubs and draped. Local | |anesthesia was obtained with lidocaine 1% | | with bicarbonate, with good effect. Under intermittent fluoroscopic observation a 20-gauge 3 inch spinal needle was gradually advanced. There was return of clear colorless cerebrospi nal fluid, approximately 18 mL was obtained and distributed into 4 | |sterile vials. This was sent to the laboratory. When 18 mL was obtained, the procedure was terminated, needle was withdrawn, and a Band-Aid dressing was applied. | | | |The patient tolerated the procedure well. No procedural complications were encountered. | | | |Total fluoroscopy time: 0.2 minutes | | | |Total fluoroscopy dose: 1.8 mGy | | | |Opening pressure: 16 cmH20 | | | |IMPRESSION | |Successful Diagnostic lumbar puncture under fluoroscopy. No procedural complications encoun tered. | | | | | |This report has been prepared with a voice recognition system. The possibility of "sound a like" busher helper errors, addition and/or deletions may occur. If there is any question a bout this report please contact the author of the report. | | | | | + + NMO, Serum, IGG (11/06/2014 3:04 PM PDT) + + | Specimen | + + | Cerebrospinal fluid | | sample (specimen) | + + + + + | Narrative | Performed At | + + + | [facility] IGG CSF NEGATIVE RECOMMEND | EXTERNAL LAB | | REPEAT TESTING IN 6 MONTHS IF CLINICAL SUSPICION IS HIGH. NEGATIVE | | | RESULT CAN OCCUR IN THE SETTING OF IMMUNOSUPPRESSION. Testing | | | performed at [facility], [address] [place] [address] | | | [place] [address] | | + + + + +---------+ + + | Performing | Address | City/State/Zipcode | Phone Number | | Organization | | | | + +---------+ + + | EXTERNAL LAB | | | | + +---------+ + + Oligoclonal Band Panel (11/06/2014 3:04 PM PDT) + + + + + + | Component | Value | Ref Range | Performed | Pathologist | | | | | At | Signature | + + + + + + | Immunoglobu | 947Comment: REFERENCE | 768 - 1632 | EXTERNAL | | | mamadou IgG | INTERVAL: IMMUNOGLOBULIN | mg/dL | LAB | | | | GACCESS COMPLETE SET OF | | | | | | AGE- AND/OR | | | | | | GENDER-SPECIFIC | | | | | | REFERENCEINTERVALS FOR | | | | | | THIS TEST IN THE [facility] | | | | | | LABORATORY TEST | | | | | | DIRECTORY([employer]).T | | | | | | esting performed at | | | | | | [facility], [address] [facility] [place], | | | | | | [facility] [address] | | | | + + + + + + | IGG, CSF | 5.1Comment: Testing | 0.0 - 6.0 mg/dL | EXTERNAL | | | | performed at [facility], [address] | | LAB | | | | [facility] | | | | | | [facility] [address] | | | | + + + + + + | Albumin, | 32Comment: Testing | 0 - 35 mg/dL | EXTERNAL | | | CSF | performed at [facility], [address] | | LAB | | | | [facility] | | | | | | [facility] [address] | | | | + + + + + + | Albumin | 11.7 (H)Comment: Testing | 0.0 - 9.0 ratio | EXTERNAL | | | Index | performed at [facility], [address] | | LAB | | | | [facility] | | | | | | [facility] [address] | | | | + + + + + + | CSF | 0.16Comment: Testing | 0.09 - 0.25 | EXTERNAL | | | IgG/Albumin | performed at [facility], [address] | ratio | LAB | | | Ratio | [address], [facility] | | | | | | [facility] [address] | | | | + + + + + + | IgG Index | 0.46Comment: Testing | 0.28 - 0.66 | EXTERNAL | | | | performed at [facility], [address] | ratio | LAB | | | | [facility] | | | | | | [facility] [address] | | | | + + + + + + | CSF | NEGATIVEComment: | | EXTERNAL | | | Oligoclonal | REFERENCE RANGE: | | LAB | | | Bands | NEGATIVETesting | | | | | | performed at [facility], [address] | | | | | | [facility] | | | | | | [facility] [address] | | | | + + + + + + | Interpretat | SEE NOTEComment: | | EXTERNAL | | | ion: | ISOELECTRIC | | LAB | | | | FOCUSING/IMMUNOFIXATION | | | | | | REVEALS IDENTICAL BANDS | | | | | | IN THECSF AND THE SERUM. | | | | | | THIS IS CONSISTENT | | | | | | WITH A SYSTEMIC, | | | | | | NOTINTRATHECAL, IMMUNE | | | | | | REACTION AND IS | | | | | | CONSIDERED TO BE A | | | | | | NEGATIVERESULT FOR | | | | | | OLIGOCLONAL BANDS. | | | | | | APPROXIMATELY 5 | | | | | | PERCENT OF PATIENTSWITH | | | | | | CLINICALLY DEFINITIVE | | | | | | MULTIPLE SCLEROSIS WILL | | | | | | HAVE A NEGATIVERESULT.AN | | | | | | ELEVATED ALBUMIN INDEX | | | | | | INDICATES DAMAGE TO THE | | | | | | BLOOD-CSF BARRIEROR | | | | | | CONTAMINATION OF CSF | | | | | | WITH BLOOD DURING SAMPLE | | | | | | COLLECTION. AN | | | | | | INDEXVALUE LESS THAN 9 | | | | | | IS CONSIDERED CONSISTENT | | | | | | WITH AN INTACT | | | | | | BARRIER.VALUES OF 9-14 | | | | | | ARE INTERPRETED | | | | | | SLIGHT IMPAIRMENT, OF | | | | | | 14-30 ASMODERATE | | | | | | IMPAIRMENT, AND OF | | | | | | 30-100 SEVERE | | | | | | IMPAIRMENT. | | | | | | VALUESEXCEEDING 100 | | | | | | INDICATE COMPLETE | | | | | | BREAKDOWN OF THE | | | | | | BARRIER.Testing | | | | | | performed at [facility], [address] | | | | | | [facility] | | | | | | [facility] [address] | | | | + + + + + + | IGG SYNTH | <0.0 (L)Comment: | 0.0 - 8.0 mg/d | EXTERNAL | | | RATE | REFERENCE RANGE: | | LAB | | | | <=8.0Testing performed | | | | | | at [facility], [address] [facility] | | | | | | [facility] [place] | | | | | | [address] | | | | + + + + + + | Albumin | 2,730 (L)Comment: | 3,500 - 5,200 | EXTERNAL | | | | Testing performed at | mg/dL | LAB | | | | [facility], [address], | | | | | | [facility] [address] | | | | + + + + + + + + | Specimen | + + | | + + + +---------+ + + | Performing | Address | City/State/Zipcode | Phone Number | | Organization | | | | + +---------+ + + | EXTERNAL LAB | | | | + +---------+ + + XR Abd Supine and Upright w 1 Vw Chest (11/06/2014 7:17 AM PDT) + + | Specimen | + + | | + + + + + | Impressions | Performed At | + + + | 1. Nonspecific bowel gas pattern without evidence of bowel | | | obstruction. 2. Increased stool in the colon, suggesting possible | | | constipation. 3. Calcifications in the left upper quadrant, | | | potentially in the left kidney or pancreas. | | + + + + + + | Narrative | Performed At | + + + | [facility] 11/06/2014 7:17 AM HISTORY: | | | Vomiting. TECHNIQUE: Acute abdomen series including one view of | | | the chest and 4 views of the abdomen. FINDINGS: Compared with | | | 11/05/2014. There is persistent marked elevation of the right | | | diaphragm. Again noted is atelectasis in the right lung base. No free | | | air can be identified on the decubitus views. There are a few | | | air-fluid levels noted in the right colon on the decubitus view. No | | | significant bowel distention is seen. There are a few soft tissue | | | calcifications in the left upper quadrant, probably pancreas or left | | | kidney. Surgical clips in the right upper quadrant. Increased stool | | | within the colon, suggesting constipation. | | + + + + + | Procedure Note | + + | Judson, Rad Conversion - 11/24/2018 6:38 AM PDT [facility] ACUTE | | SERIES11/06/2014 7:17 AM HISTORY:Vomiting. TECHNIQUE:Acute abdomen series including one | | view of the chest and 4 views of the abdomen. FINDINGS:Compared with 11/05/2014. There is | | persistent marked elevation of the right diaphragm. Again noted is atelectasis in the | | right lung base. No free air can be identified on the decubitus views. There are a few | | air-fluid levels noted in the right colon on the decubitus view. No significant bowel | | distention is seen. There are a few soft tissue calcifications in the left upper | | quadrant, probably pancreas or left kidney. Surgical clips in the right upper quadrant. | | Increased stool within the colon, suggesting constipation. IMPRESSION: 1. Nonspecific | | bowel gas pattern without evidence of bowel obstruction.2. Increased stool in the | | colon, suggesting possible constipation.3. Calcifications in the left upper quadrant, | | potentially in the left kidney or pancreas. | |Increased stool within the colon, suggesting | | constipation. | | | |IMPRESSION: | |1. Nonspecific bowel gas pattern without evidence of bowel obstruction. | |2. Increased stool in the colon, suggesting possible constipation. | |3. Calcifications in the left upper quadrant, potentially in the left kidney or pancreas. | | | | | + + Culture, Urine (11/06/2014 5:30 AM PDT) + + | Specimen | + + | | + + + + + | Narrative | Performed At | + + + | Specimen Description URINE, COLLECTION NOT | EXTERNAL LAB | | GIVEN CULTURE NO GROWTH | | | Testing performed | | | at [facility], [address] [place] [address] | | + + + + +---------+ + + | Performing | Address | City/State/Zipcode | Phone Number | | Organization | | | | + +---------+ + + | EXTERNAL LAB | | | | + +---------+ + + Culture, Urine (11/06/2014 5:30 AM PDT) + + | Specimen | + + | Urine specimen | | (specimen) | + + + + + | Narrative | Performed At | + + + | Specimen Description CATHETERIZED URINE | EXTERNAL LAB | | CULTURE NO GROWTH | | | Testing performed at [facility], | | | [address] [place] [address] | | + + + + +---------+ + + | Performing | Address | City/State/Zipcode | Phone Number | | Organization | | | | + +---------+ + + | EXTERNAL LAB | | | | + +---------+ + + Urinalysis with Microscopic with Culture if Indicated (11/06/2014 5:30 AM PDT) + + + + + + | Component | Value | Ref Range | Performed | Pathologist | | | | | At | Signature | + + + + + + | Color | YELLOWComment: Testing | | EXTERNAL | | | | performed at [facility], [address] | | LAB | | | | [facility], | | | | | | [place] [address] | | | | + + + + + + | Clarity | CLEARComment: Testing | | EXTERNAL | | | | performed at [facility], [address] | | LAB | | | | [address], | | | | | | [place] [address] | | | | + + + + + + | Specific | 1.014Comment: Testing | 1.002 - 1.030 | EXTERNAL | | | [place] | performed at [facility], [address] | | LAB | | | | [address] [place], | | | | | | [place] [address] | | | | + + + + + + | Leukocyte | TRACE (A)Comment: | | EXTERNAL | | | Esterase, | Testing performed at | | LAB | | | Urine | [facility], [address] | | | | | | [place] | | | | | | [address] | | | | + + + + + + | Nitrite, | NEGATIVEComment: Testing | | EXTERNAL | | | Urine | performed at [facility], [address] | | LAB | | | | [address], | | | | | | [place] [address] | | | | + + + + + + | Urobilinoge | 0.2Comment: Testing | mg/dL | EXTERNAL | | | n, Urine | performed at [facility], [address] | | LAB | | | | [address] [place], | | | | | | [place] [address] | | | | + + + + + + | Protein, | NEGATIVEComment: Testing | mg/dL | EXTERNAL | | | Urine | performed at [facility], [address] | | LAB | | | | [address], | | | | | | [place] [address] | | | | + + + + + + | pH, Urine | 7.0Comment: Testing | 5.0 - 8.0 | EXTERNAL | | | | performed at [facility], [address] | | LAB | | | | [address], | | | | | | [place] [address] | | | | + + + + + + | Blood, | SMALL (A)Comment: | | EXTERNAL | | | Urine | Testing performed at | | LAB | | | | [facility], [address] | | | | | | [place] | | | | | | [address] | | | | + + + + + + | Ketones | NEGATIVEComment: Testing | mg/dL | EXTERNAL | | | | performed at [facility], [address] | | LAB | | | | [address], | | | | | | [place] [address] | | | | + + + + + + | Bilirubin, | NEGATIVEComment: Testing | | EXTERNAL | | | Urine | performed at [facility], [address] | | LAB | | | | [address], | | | | | | [place] [address] | | | | + + + + + + | Glucose, | NEGATIVEComment: Testing | mg/dL | EXTERNAL | | | Urine | performed at [facility], [address] | | LAB | | | | [address], | | | | | | [place] [address] | | | | + + + + + + | WBC, UA | 16-25Comment: Testing | 0 - 5 /hpf | EXTERNAL | | | | performed at [facility], [address] | | LAB | | | | [address], | | | | | | [place] [address] | | | | + + + + + + | RBC, UA | 6-10Comment: Testing | 0 - 5 /hpf | EXTERNAL | | | | performed at [facility], [address] | | LAB | | | | [address], | | | | | | [place] [address] | | | | + + + + + + | Bacteria, | NONE SEENComment: | | EXTERNAL | | | UA | CULTURE TO FOLLOWTesting | | LAB | | | | performed at [facility], [address] | | | | | | [address], | | | | | | [place] [address] | | | | + + + + + + | Epithelial | 26-50Comment: Testing | /lpf | EXTERNAL | | | Cells | performed at [facility], [address] | | LAB | | | | [address], | | | | | | [place] [address] | | | | + + + + + + | HYALINE | 0-2Comment: Testing | | EXTERNAL | | | CASTS UA | performed at [facility], [address] | | LAB | | | | [address], | | | | | | [place] [address] | | | | + + + + + + + + | Specimen | + + | Urine specimen | | (specimen) | + + + +---------+ + + | Performing | Address | City/State/Zipcode | Phone Number | | Organization | | | | + +---------+ + + | EXTERNAL LAB | | | | + +---------+ + + Culture, Blood, 2nd Specimen (11/06/2014 5:25 AM PDT) + + | Specimen | + + | Blood specimen | | (specimen) | + + + + + | Narrative | Performed At | + + + | Specimen Description BLOOD, LINE DRAW SPECIAL | EXTERNAL LAB | | REQUESTS MEDIPORT | | | Testing performed at [facility];[address] | | | [place] [address] CULTURE | | | NO GROWTH | | | Testing performed at [facility], [address], [place], [place] | | | [address] | | + + + + +---------+ + + | Performing | Address | City/State/Zipcode | Phone Number | | Organization | | | | + +---------+ + + | EXTERNAL LAB | | | | + +---------+ + + Culture, Blood (11/06/2014 4:15 AM PDT) + + | Specimen | + + | Blood specimen | | (specimen) | + + + + + | Narrative | Performed At | + + + | Specimen Description BLOOD, PERIPHERAL DRAW | EXTERNAL LAB | | SPECIAL REQUESTS LAC | | | Testing performed at [facility];[address] | | | [facility];[place] [address] CULTURE | | | NO GROWTH | | | Testing performed at [facility], [address], [place], [place] | | | [address] | | + + + + +---------+ + + | Performing | Address | City/State/Zipcode | Phone Number | | Organization | | | | + +---------+ + + | EXTERNAL LAB | | | | + +---------+ + + Protime INR (11/06/2014 4:15 AM PDT) + + + + + + | Component | Value | Ref Range | Performed | Pathologist | | | | | At | Signature | + + + + + + | INR | 1.3Comment: REFERENCE | | EXTERNAL | | | [...] | | | | | performed at [facility];[address] | | | | | | [address] [place] | | | | | | [address] | | | | + + + [...] + +---------+ + + External Lab: CBC (11/06/2014 4:15 AM PDT) + + + + + + | Component | Value | Ref Range | Performed | Pathologist | | | | | At | Signature | + + + + + + | WBC | 24.64 (H)Comment: | 3.80 - 11.00 | EXTERNAL | | | | Testing performed at | K/uL | LAB | | | | [facility], [address] | | | | | | [place] | | | | | | [address] | | | | + + + + + + | RED CELL | 4.38Comment: Testing | 3.70 - 5.10 | EXTERNAL | | | COUNT | performed at [facility], [address] | M/uL | LAB | | | | [place] [place], | | | | | | [place] [address] | | | | + + + + + + | Hgb | 13.1Comment: Testing | 11.3 - 15.5 | EXTERNAL | | | | performed at [facility], [address] | g/dL | LAB | | | | [place], | | | | | | [place] [address] | | | | + + + + + + | Hematocrit, | 41.2Comment: Testing | 34.0 - 46.0 % | EXTERNAL | | | POC | performed at [facility], [address] | | LAB | | | | [address], | | | | | | [place] [address] | | | | + + + + + + | MCV | 94.0Comment: Testing | 80.0 - 100.0 fl | EXTERNAL | | | | performed at [facility], [address] | | LAB | | | | [address], | | | | | | [place] [address] | | | | + + + + + + | MCH | 29.9Comment: Testing | 27.0 - 34.0 pg | EXTERNAL | | | | performed at [facility], [address] | | LAB | | | | [address], | | | | | | [place] [address] | | | | + + + + + + | MCHC | 31.8 (L)Comment: Testing | 32.0 - 35.5 | EXTERNAL | | | | performed at [facility], [address] | g/dL | LAB | | | | [address], | | | | | | [place] [address] | | | | + + + + + + | RDW-CV | 59.5 (H)Comment: Testing | 37 - 53 fl | EXTERNAL | | | | performed at [facility], [address] | | LAB | | | | [address], | | | | | | [place], [place] [address] | | | | + + + + + + | Platelet | 436 (H)Comment: Testing | 150 - 400 K/uL | EXTERNAL | | | Count | performed at [facility], [address] | | LAB | | | Plasma | [address], | | | | | | [place], [place] [address] | | | | + + + + + + | MPV | 8.2Comment: Testing | fl | EXTERNAL | | | | performed at [facility], [address] | | LAB | | | | [address], | | | | | | [place] [address] | | | | + + + + + + | Differentia | MANUALComment: Testing | | EXTERNAL | | | l Type | performed at [facility], [address] | | LAB | | | | [address], | | | | | | [place] [address] | | | | + + + + + + | Segmented | 69Comment: Testing | % | EXTERNAL | | | Neutrophils | performed at [facility], [address] | | LAB | | | Manual | [address], | | | | | | [place] [address] | | | | + + + + + + | Lymphocytes | 17Comment: Testing | % | EXTERNAL | | | Manual | performed at [facility], [address] | | LAB | | | | [address], | | | | | | [place] [address] | | | | + + + + + + | Monocytes | 14Comment: Testing | % | EXTERNAL | | | Manual | performed at [facility], [address] | | LAB | | | | [address], | | | | | | [place] [address] | | | | + + + + + + | Absolute | 17.00 (H)Comment: | 1.90 - 7.40 | EXTERNAL | | | Neutrophils | Testing performed at | K/uL | LAB | | | | [facility], [address] [facility] | | | | | | [place] | | | | | | [address] | | | | + + + + + + | Absolute | 4.19 (H)Comment: Testing | 1.00 - 3.90 | EXTERNAL | | | Lymphocytes | performed at [facility], [address] | K/uL | LAB | | | | [address] [place], | | | | | | [place] [address] | | | | + + + + + + | Absolute | 3.45 (H)Comment: Testing | 0.00 - 0.80 | EXTERNAL | | | Monocytes | performed at [facility], [address] | K/uL | LAB | | | | [address] [place], | | | | | | [place] [address] | | | | + + + + + + | RBC | 2+Comment: ANISONORMAL | | EXTERNAL | | | Morphology | PLT MORPHTesting | | LAB | | | | performed at [facility], [address] | | | | | | [place], | | | | | | [place] [address] | | | | | | | [...] | | + +---------+ + + Phosphorus (11/06/2014 4:15 AM PDT) + + + + + + | Component | Value | Ref Range | Performed | Pathologist | | | | | At | Signature | + + + + + + | PHOSPHORUS | 3.2Comment: Testing | 2.3 - 4.8 mg/dL | EXTERNAL | | | | performed at [facility], [address] | | LAB | | | | [place], | | | | | | [place] [address] | | | | + + + + + + + + | Specimen | + + | Blood specimen | | (specimen) | + + + +---------+ + + | Performing | Address | City/State/Zipcode | Phone Number | | Organization | | | | + +---------+ + + | EXTERNAL LAB | | | | + +---------+ + + Magnesium (11/06/2014 4:15 AM PDT) + + + + + + | Component | Value | Ref Range | Performed | Pathologist | | | | | At | Signature | + + + + + + | Magnesium | 1.3 (L)Comment: Testing | 1.7 - 2.4 mg/dL | EXTERNAL | | | | performed at [facility], [address] | | LAB | | | | [place], | | | | | | [place] [address] | | | | + + + [...] + +---------+ + + Comprehensive Metabolic Panel (11/06/2014 4:15 AM PDT) + + + + + + | Component | Value | Ref Range | Performed | Pathologist | | | | | At | Signature | + + + + + + | Na | 128 (L)Comment: Testing | 135 - 143 | EXTERNAL | | | | performed at [facility], [address] | mmol/L | LAB | | | | [place], | | | | | | [place] [address] | | | | + + + + + + | K | 3.5Comment: Testing | 3.5 - 4.9 | EXTERNAL | | | | performed at [facility], [address] | mmol/L | LAB | | | | [place], | | | | | | [place] [address] | | | | + + + + + + | Cl | 95 (L)Comment: Testing | 99 - 109 mmol/L | EXTERNAL | | | | performed at [facility], [address] | | LAB | | | | [address], | | | | | | [place] [address] | | | | + + + + + + | CO2 | 25Comment: Testing | 23 - 32 mmol/L | EXTERNAL | | | | performed at [facility], [address] | | LAB | | | | [address], | | | | | | [place] [address] | | | | + + + + + + | Anion Gap | 12Comment: Testing | 5 - 20 mmol/L | EXTERNAL | | | | performed at [facility], [address] | | LAB | | | | [address], | | | | | | [place] [address] | | | | + + + + + + | Glucose, | 120 (H)Comment: Testing | 65 - 99 mg/dL | EXTERNAL | | | Fasting | performed at [facility], [address] | | LAB | | | | [address], | | | | | | [place] [address] | | | | + + + + + + | BUN | 8Comment: Testing | 8 - 25 mg/dL | EXTERNAL | | | | performed at [facility], [address] | | LAB | | | | [address], | | | | | | [place] [address] | | | | + + + + + + | Creatinine | 0.45 (L)Comment: Testing | 0.50 - 1.00 | EXTERNAL | | | | performed at [facility], [address] | mg/dL | LAB | | | | [address], | | | | | | [place] [address] | | | | + + + + + + | BUN/Creatin | 18Comment: Testing | | EXTERNAL | | | ine Ratio | performed at [facility], [address] | | LAB | | | | [address], | | | | | | [place] [address] | | | | + + + + + + | Calcium | 8.7Comment: Testing | 8.5 - 10.5 | EXTERNAL | | | | performed at [facility], [address] | mg/dL | LAB | | | | [address], | | | | | | [place] [address] | | | | + + + + + + | Protein, | 6.8Comment: Testing | 6.3 - 8.2 g/dL | EXTERNAL | | | Total | performed at [facility], [address] | | LAB | | | [address], | | | | | | [place] [address] | | | | + + + + + + | Albumin | 3.1 (L)Comment: Testing | 3.6 - 5.0 g/dL | EXTERNAL | | | | performed at [facility], [address] | | LAB | | | | [address], | | | | | | [place] [address] | | | | + + + + + + | Globulin | 3.7Comment: Testing | 1.3 - 4.9 g/dL | EXTERNAL | | | | performed at [facility], [address] | | LAB | | | | [address], | | | | | | [place] [address] | | | | + + + + + + | A/G Ratio | 0.8 (L)Comment: Testing | 1.0 - 2.4 | EXTERNAL | | | | performed at [facility], [address] | | LAB | | | | [address], | | | | | | [place] [address] | | | | + + + + + + | Bilirubin | 0.8Comment: Testing | 0.1 - 1.5 mg/dL | EXTERNAL | | | Total | performed at [facility], [address] | | LAB | | | | [address] [place], | | | | | | [place] [address] | | | | + + + + + + | ALP, | 214 (H)Comment: Testing | 35 - 115 U/L | EXTERNAL | | | External | performed at [facility], [address] | | LAB | | | | [address], | | | | | | [place] [address] | | | | + + + + + + | AST | 26Comment: Testing | 10 - 45 U/L | EXTERNAL | | | | performed at [facility], [address] | | LAB | | | | [address], | | | | | | [place] [address] | | | | + + + + + + | ALT | 29Comment: Testing | 10 - 65 U/L | EXTERNAL | | | | performed at [facility], [address] | | LAB | | | | [employer], | | | | | | [place] [address] | | | | + + + [...] W | | | | | | [address], | | | | | | [place] [address] | | | | + + + + + + + + | Specimen | + + | | + + + +---------+ + + | Performing | Address | City/State/Zipcode | Phone Number | | Organization | | | | + +---------+ + + | EXTERNAL LAB | | | | + +---------+ + + HISTORICAL LAB PANEL RESULT (11/05/2014 11:42 PM PDT) + + + + + -+ | Component | Value | Ref Range | Performed | Pathologist | | | | | At | Signature | + + + + + -+ | WBC | 24.99 (H)Comment: | 3.80 - 11.00 | EXTERNAL | | | | Testing performed at | K/uL | LAB | | | | [facility];[address] | | | | | | [place] [address] | | | | + + + + + -+ | RED CELL | 4.36Comment: Testing | 3.70 - 5.10 | EXTERNAL | | | COUNT | performed at [facility];[address] | M/uL | LAB | | | | [address];[place] | | | | | | [address] | | | | + + + + + -+ | Hgb | 13.1Comment: Testing | 11.3 - 15.5 | EXTERNAL | | | | performed at [facility];[address] | g/dL | LAB | | | | [address];[place] | | | | | | [address] | | | | + + + + + -+ | Hematocrit, | 40.2Comment: Testing | 34.0 - 46.0 % | EXTERNAL | | | POC | performed at [facility];[address] | | LAB | | | | [address];[place] | | | | | | [address] | | | | + + + + + -+ | MCV | 92.3Comment: Testing | 80.0 - 100.0 fl | EXTERNAL | | | | performed at [facility];[address] | | LAB | | | | [address];[place] | | | | | | [address] | | | | + + + + + -+ | MCH | 30.2Comment: Testing | 27.0 - 34.0 pg | EXTERNAL | | | | performed at [facility];[address] | | LAB | | | | [address];[place] | | | | | | [address] | | | | + + + + + -+ | MCHC | 32.7Comment: Testing | 32.0 - 35.5 | EXTERNAL | | | | performed at [facility];[address] | g/dL | LAB | | | | [address];[place] | | | | | | [address] | | | | + + + + + -+ | RDW-CV | 59.5 (H)Comment: Testing | 37 - 53 fl | EXTERNAL | | | | performed at [facility];[address] | | LAB | | | | [address];[place] | | | | | | [address] | | | | + + + + + -+ | Platelet | 424 (H)Comment: Testing | 150 - 400 K/uL | EXTERNAL | | | Count | performed at [facility];[address] | | LAB | | | Plasma | [address];[place] | | | | | | [address] | | | | + + + + + -+ | MPV | 7.3Comment: Testing | fl | EXTERNAL | | | | performed at [facility];[address] | | LAB | | | | [address];[place] | | | | | | [address] | | | | + + + + + -+ | Differentia | AUTOMATEDComment: | | EXTERNAL | | | l Type | Testing performed at | | LAB | | | | [facility];[address] | | | | | | [address];[place] [address] | | | | + + + + + -+ | % Segmented | 69.52Comment: Testing | % | EXTERNAL | | | | performed at [facility];[address] | | LAB | | | Neutrophils | [address];[place] | | | | | | [address] | | | | + + + + + -+ | % | 17.38Comment: Testing | % | EXTERNAL | | | Lymphocytes | performed at [facility];[address] | | LAB | | | | [address];[place] | | | | | | [address] | | | | + + + + + -+ | % Monocytes | 11.50Comment: Testing | % | EXTERNAL | | | | performed at [facility];[address] | | LAB | | | | [address];[place] | | | | | | [address] | | | | + + + + + -+ | % | 0.84Comment: Testing | % | EXTERNAL | | | Eosinophils | performed at [facility];[address] | | LAB | | | | [address] [place] | | | | | | [address] | | | | + + + + + -+ | % Basophils | 0.76Comment: Testing | % | EXTERNAL | | | | performed at [facility];[address] | | LAB | | | | [address];[place] | | | | | | [address] | | | | + + + + + -+ | Absolute | 17.37 (H)Comment: | 1.90 - 7.40 | EXTERNAL | | | Segmented | Testing performed at | K/uL | LAB | | | Neutrophils | [facility];[address] | | | | | | [place] [address] | | | | + + + + + -+ | Absolute | 4.34 (H)Comment: Testing | 1.00 - 3.90 | EXTERNAL | | | Lymphocytes | performed at [facility];[address] | K/uL | LAB | | | | [address];[place] | | | | | | [address] | | | | + + + + + -+ | Absolute | 2.87 (H)Comment: Testing | 0.00 - 0.80 | EXTERNAL | | | Monocytes | performed at [facility];[address] | K/uL | LAB | | | | [address];[place] | | | | | | [address] | | | | + + + + + -+ | Absolute | 0.21Comment: Testing | 0.00 - 0.50 | EXTERNAL | | | Eosinophils | performed at [facility];[address] | K/uL | LAB | | | | [address];[place] | | | | | | [address] | | | | + + + + + -+ | Absolute | 0.19 (H)Comment: Testing | 0.00 - 0.10 | EXTERNAL | | | Basophils | performed at [facility];[address] | K/uL | LAB | | | | [address];[place] | | | | | | [address] | | | | + + + + + -+ | RBC | 1+Comment: ANISONORMAL | | EXTERNAL | | | Morphology | PLT MORPHTesting | | LAB | | | | performed at [facility];[address] | | | | | | [address];[place] | | | | | | [address] | | | | | | | | | | + + + + + -+ | Na | 133 (L)Comment: Testing | 135 - 143 | EXTERNAL | | | | performed at [facility];[address] | mmol/L | LAB | | | | [address];[place] | | | | | | [address] | | | | + + + + + -+ | K | 3.6Comment: Testing | 3.5 - 4.9 | EXTERNAL | | | | performed at [facility];[address] | mmol/L | LAB | | | | [address];[place] | | | | | | [address] | | | | + + + + + -+ | Cl | 95 (L)Comment: Testing | 99 - 109 mmol/L | EXTERNAL | | | | performed at [facility];[address] | | LAB | | | | [address];[place] | | | | | | [address] | | | | + + + + + -+ | CO2 | 28Comment: Testing | 23 - 32 mmol/L | EXTERNAL | | | | performed at [facility];[address] | | LAB | | | | [address];[place] | | | | | | [address] | | | | + + + + + -+ | Anion Gap | 13Comment: Testing | 5 - 20 mmol/L | EXTERNAL | | | | performed at [facility];[address] | | LAB | | | | [address];[place] | | | | | | [address] | | | | + + + + + -+ | Glucose, | 123 (H)Comment: Testing | 65 - 99 mg/dL | EXTERNAL | | | Fasting | performed at [facility];[address] | | LAB | | | | [address];[place] | | | | | | [address] | | | | + + + + + -+ | BUN | 7 (L)Comment: Testing | 8 - 25 mg/dL | EXTERNAL | | | | performed at [facility];[address] | | LAB | | | | [address];[place] | | | | | | [address] | | | | + + + + + -+ | Creatinine | 0.76Comment: Testing | 0.50 - 1.00 | EXTERNAL | | | | performed at [facility];[address] | mg/dL | LAB | | | | [address];[place] | | | | | | [address] | | | | + + + + + -+ | BUN/Creatin | 10Comment: Testing | | EXTERNAL | | | ine Ratio | performed at [facility];[address] | | LAB | | | | [address];[place] | | | | | | [address] | | | | + + + + + -+ | Calcium | 8.2 (L)Comment: Testing | 8.5 - 10.5 | EXTERNAL | | | | performed at [facility];[address] | mg/dL | LAB | | | | [address];[place] | | | | | | [address] | | | | + + + + + -+ | Protein, | 6.6Comment: Testing | 6.3 - 8.2 g/dL | EXTERNAL | | | Total | performed at [facility];[address] | | LAB | | | | [address];[place] | | | | | | [address] | | | | + + + + + -+ | Albumin | 2.7 (L)Comment: Testing | 3.6 - 5.0 g/dL | EXTERNAL | | | | performed at [facility];[address] | | LAB | | | | [address];[place] | | | | | | [address] | | | | + + + + + -+ | Globulin | 4.0Comment: Testing | 1.3 - 4.9 g/dL | EXTERNAL | | | | performed at [facility];[address] | | LAB | | | | [address];[place] | | | | | | [address] | | | | + + + + + -+ | A/G Ratio | 0.7 (L)Comment: Testing | 1.0 - 2.4 | EXTERNAL | | | | performed at [facility];[address] | | LAB | | | | [address];[place] | | | | | | [address] | | | | + + + + + -+ | Bilirubin | 0.7Comment: Testing | 0.1 - 1.5 mg/dL | EXTERNAL | | | Total | performed at [facility];[address] | | LAB | | | | [address];[place] | | | | | | [address] | | | | + + + + + -+ | ALP, | 251 (H)Comment: Testing | 35 - 115 U/L | EXTERNAL | | | External | performed at [facility];[address] | | LAB | | | | [address];[place] | | | | | | [address] | | | | + + + + + -+ | AST | 33Comment: Testing | 10 - 45 U/L | EXTERNAL | | | | performed at [facility];[address] | | LAB | | | | [address];[place] | | | | | | [address] | | | | + + + + + -+ | ALT | 36Comment: Testing | 10 - 65 U/L | EXTERNAL | | | | performed at [facility];[address] | | LAB | | | | [facility];[place], [place] | | | | | | [address] | | | | + + + [...] | | | | | | at [facility];[address] [facility] | | | | | | [address];[place] [address] | | | | + + + + + -+ | CK, Total | 50Comment: Testing | 30 - 240 U/L | EXTERNAL | | | | performed at [facility];[address] | | LAB | | | | [facility];[place] | | | | | | [address] | | | | + + + + + -+ | INR | 1.4Comment: REFERENCE | | EXTERNAL | | | [...] | | | | | performed at [facility];[address] | | | | | | [address];[place] | | | | | | [address] | | | | + + + + + -+ | aPTT, | 33 (H)Comment: Testing | 23 - 32 seconds | EXTERNAL | | | Patient | performed at [facility];[address] | | LAB | | | | [address];[place] | | | | | | [address] | | | | + + + + + -+ | CK-MB | 0.6Comment: Testing | 0.5 - 3.6 ng/mL | EXTERNAL | | | | performed at [facility];[address] | | LAB | | | | [address];[place] | | | | | | [address] | | | | + + + + + -+ | CK-MB Index | 1.2Comment: CK INDEX | | EXTERNAL | | [...] | | + +---------+ + + CT Head wo Contrast (11/05/2014 9:49 PM PDT) + + | Specimen | + + | | + + + + + | Impressions | Performed At | + + + | 1. Normal CT of the brain without contrast. Electronically | | | signed by Sam Bashir MD on 11/05/2014 10:32 PM | | + + + + + + | Narrative | Performed At | + + + | HISTORY: Altered mental status. COMPARISON: 04/22/14, | | | 04/19/14. TECHNIQUE: 5-mm axial noncontrast CT images of the | | | brain were acquired from the foramen magnum through the cranial | | | vertex. FINDINGS: The cortical sulci, basal cisterns, and | | | ventricles appear unremarkable. Orbital structures unremarkable. Bone | | | windows show dental hardware. The posterior most left maxillary | | | tetracuspid is transversely oriented, with the cusps pointing | | | laterally. | | + + + + + | Procedure Note | + + | Judson, Rad Conversion - 11/24/2018 6:38 AM PDT HISTORY:Altered mental status. | | COMPARISON:04/22/14, 04/19/14. TECHNIQUE:5-mm axial noncontrast CT images of the brain | | were acquired from the foramen magnum through the cranial vertex. FINDINGS:The cortical | | sulci, basal cisterns, and ventricles appear unremarkable. Orbital structures | | unremarkable. Bone windows show dental hardware. The posterior most left maxillary | | tetracuspid is transversely oriented, with the cusps pointing laterally. IMPRESSION: 1. | | Normal CT of the brain without contrast. Electronically signed by Sam Bashir MD on | | 11/05/2014 10:32 PM | | | |FINDINGS: | |The cortical sulci, basal cisterns, and ventricles appear unremarkable. Orbital structures unremarkable. Bone windows show dental hardware. The posterior most left maxillary tetracusp id is transversely oriented, with the cusps pointing laterally. | | | |IMPRESSION: | |1. Normal CT of the brain without contrast. | | | | | + + XR Chest 2 Vws (11/05/2014 7:36 PM PDT) + + | Specimen | + + | | + + + + + | Narrative | Performed At | + + + | This is a non-reportable procedure without a radiologist report and | | | is used for image storage only | | + + + + + | Procedure Note | + + | Tez Roper - 11/24/2018 6:38 AM PDT This is a non-reportable procedure | | without a radiologist report and isused for image storage only | + + documented in this encounter Visit Diagnoses + + | Diagnosis | + + | Chest pain, unspecified chest pain type | + + | Pyelonephritis Pyelonephritis, unspecified | + + | Acute nonintractable headache, unspecified headache type | + + | Leukocytosis Leukocytosis, unspecified | + + | Somnolence Other alteration of consciousness | + + | Debility, unspecified | + + | Essential hypertension Unspecified essential hypertension | + + documented in this encounter
--- OUTSIDE RECORDS SUMMARY | ~2019-03-09 | XMS | Encounter Summary ---
Demographics + + + | Address | [address] | | | [place] [address] | + + + | Home Phone | | + + + | Preferred Language | Unknown | + + + | Marital Status | | + + + | Hoahaoism Affiliation | Unknown | + + + | Race | Unknown | + + + | Ethnic Group | Unknown | + + + Author + + + | Author | [facility] | | | and [place] | + + + | Organization | [facility] | | [...] Team Providers + +------+ + | Care Speech Correction Assistant Name | Role | Phone | + +------+ + PCP | Unavailable | + +------+ + Encounter Details +--------+ + + + + | Date | Type | Department | Care Team | Description | +--------+ + + + + | 03/07/ | Hospital | [facility] | SahraCynthiaay Zoila, | Rectovaginal | | 2017 - | Encounter | [facility] [address] | MD Gaby SINGH | fistula; Crohn's | | | | [address] | [address] | disease of large | | 03/12/ | | [place], [place] | [place] [address] | intestine with | | 2017 | | [id number] | [phone] | complication (HCC) | | | | [phone] | | | +--------+ + + + [...] + + + | Blood Pressure | 137/77 | 03/12/2017 11:22 AM | | | | | PST | | + + + + + | Pulse | 76 | 03/12/2017 11:22 AM | | | | | PST | | + + + + + | Temperature | 36.9 C (98.5 F) | 03/12/2017 11:22 AM | | | | | PST | | + + + + + | Respiratory Rate | 16 | 03/12/2017 11:22 AM | | | | | PST | | + + + + + | Oxygen Saturation | - | - | | + + + + + | Inhaled Oxygen | - | - | | | Concentration | | | | + + + + + | Weight | 77 kg (169 lb 12 oz) | 03/12/2017 11:22 AM | | | | | PST | | + + + + + | Height | 172.7 cm (5' 8") | 03/12/2017 11:22 AM | | | | | PST | | + + + + + | Body Mass Index | 25.81 | 03/12/2017 11:22 AM | | | | | PST | | + + + + + documented in this encounter Discharge Summaries Jordon Elkins ARNP - 03/12/2017 7:46 AM PSTFormatting of this note might be differen t from the original. Discharge Summaries by JENARO Mathew at 03/12/1746 Author: JENARO Mathew Service: General Surgery Author Type: Nurse Roycee r Filed: 03/12/17 0751 Date of Service: 03/12/1746 Status: Signed Meat Process Worker: JENARO Mathew (Nurse Practitioner) [facility] Service: Colon & Rectal Surgery Discharge Summary Date of Admission: 03/07/2017 Date of Discharge: 03/12/17 Discharge Provider: JENARO MATHEW Treatment Team: Admitting Provider: Enrique Bocanegra MD Discharge Diagnoses: Principal Problem: Rectovaginal fistula Active Problems: Crohn's disease (HCC) GERD (gastroesophageal reflux disease) Hypokalemia Leucocytosis Chronic anticoagulation Hypertension Diarrhea Smoker Chronic narcotic use Resolved Problems: * No resolved hospital problems. * Procedures: Procedure(s): COLOSTOMY BRIEF HISTORY OF PRESENTATION: Smita Schultz a very pleasant 61 y.o.femalewho is well known to our clinic. Antonia he has a long history of chron's disease. She is currently on Humirabeing seen by Dr. She CLAYTON in [place]. She previously underwent a small bowel resection where roughly 17 inch es were removed per the patient. 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 She has a Hx of mesenteric and LE DVT and is currently on coumadin. She also has a previous history of anovaginal and perianal fistulas. She wa s initially seen by Dr. Bocanegra on 09/09/15 with a chief complaint of recurrent UTIs and a possible rectovaginal fistula with stool from the vagina. She underwent a exam under a nesthesia, and placement of a RA and 3 AML setons and rectal mucosa biopsy on 10/27/15 with t he following findings "Right lateral internal opening at dentate line coursing in a high tra nssphincteric tract. Three internal openings, one at dentate line anterior midline and two p roximal to dentate line anterior midline all tract high into the vagina anteriorly. No activ e infection or abscess. There is mild inflammation in the rectum." She was seen multiple t imes in follow up. She was recommended to undergo a APR with colostomy however the patient was very resistant to this. She was then recommended to go to [place] for a second opinio n. She never went to [place] due to the trip being a hardship for her. She was then lost to follow up. She started her biologictreatments. Since then she has been following with Dr. Krishna. She has been having profuse watery diarrhea and recurrent UTIs, requiring hospital admiss ions and abx treatments. When she is on abxs her diarrhea is worse. This has been going on for months. She has been taking narcotics and opium to help thicken up her stools with good results. She was recently put on bowel rest by Dr. Krishna and started on TPN as an outpatient and her narcotics were stopped. Her diarrhea has been worsening. She states that she is miserable. She is having significant perianal discomfort d/t the diarrhea. S he is ready to have the APR and just want to have a colostomy. 03/02/17-Pt completed her preoperative labs that noted severe hypokalemia. She was admitte d to the hospitalists service for this. She is doing OK today. No significant changes from our appointment yesterday. HOSPITAL COURSE: Smita Willingham is a 61 y.o. female who underwent a open colostomy with Dr. Bocanegra. [facility] surgery she has recovered slowly. She is tolerating a general diet without N/V. Her co lostomy is passing gas and stool. Oral pain medications are managing the patients pain. e is ambulatory. Vitals and labs are stable. The patient is ready for discharge. Past Medical History Diagnosis Date CHF (congestive heart failure) ([facility]) happened after splenectomy Chronic diarrhea COPD (chronic obstructive pulmonary disease) ([facility]) Crohn's disease ([facility]) Deep vein thrombosis (DVT) ([facility]) right leg and then travelled to [facility] Depression E-coli UTI Embolism and thrombosis of splenic artery Gastroesophageal reflux disease with hiatal hernia GERD (gastroesophageal reflux disease) Hemorrhage of gastrointestinal tract, unspecified Hypertension Hypokalemia 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) Joint pain Microcytic anemia Neuromuscular disorder ([facility]) left leg numbness, severe tingling, shooting pain down leg Neuropathy On total parenteral nutrition (TPN) Osteoporosis Other chronic pain Pyelonephritis Recurrent aphthous ulcer Sepsis (HCC) Past Surgical History Procedure Laterality Date ABDOMINAL SURGERY ANAL FISTULA SETON PLACEMENT N/A 10/17/2015 Procedure: ANAL FISTULA SETON PLACEMENT; Surgeon: Enrique Bocanegra MD; Location: [facility] OR; Service: General; Laterality: N/A; APPENDECTOMY CHOLECYSTECTOMY COLOSTOMY N/A 03/07/2017 Procedure: COLOSTOMY; Surgeon: Enrique Bocanegra MD; Location: [facility] OR; Service: G eneral; Laterality: N/A; ESOPHAGOGASTRODUODENOSCOPY Left 08/06/2015 Procedure: ESOPHAGOGASTRODUODENOSCOPY; Surgeon: Sheng Rios MD; Location: [facility] END[facility]COPY; Service: Gastroenterology; Laterality: Left; ESOPHAGOGASTRODUODENOSCOPY N/A 04/21/2014 Procedure: ESOPHAGOGASTRODUODENOSCOPY; Surgeon: Bony Petty MD; Location: [facility] BEDSIDE PROCEDURE; Service: Gastroenterology; Laterality: N/A; HYSTERECTOMY LAPAROTOMY N/A 04/23/2014 Procedure: EXPLORATION - LAPAROTOMY; Surgeon: Bogdan Moser DO; Location: [facility] MAIN O R; Service: General; Laterality: N/A; LYSIS OF ADHESIONS PORTACATH PLACEMENT Left SMALL INTESTINE SURGERY SPLENECTOMY, TOTAL N/A 04/23/2014 Procedure: SPLENECTOMY; Surgeon: Bogdan Moser DO; Location: [facility] MAIN OR; Service: General; Laterality: N/A; TONSILLECTOMY Allergies Allergen Reactions Demerol [Meperidine] Other (See Comments) Unknown Erythromycin Other (See Comments) unknown Levofloxacin Other (See Comments) Tendinitis. Was prescribed 02/15/17 and tolerated without issues Reglan [Metoclopramide] Agitation Unknown Penicillins Nausea and Vomiting Prescriptions Prior to Admission Medication Sig Dispense Refill Last Dose acetaminophen (TYLENOL) 325 MG tablet Take 2 tablets by mouth every 6 (six) hours as ne eded for up to 10 days. 30 tablet 0 03/07/2017 at Unknown time [] enoxaparin (LOVENOX) 80 MG/0.8ML SOLN Inject 0.7 mLs into the skin every 12 ( twelve) hours for 8 doses. 5.6 mL 0 03/06/2017 at Unknown time metoprolol (LOPRESSOR) 25 MG tablet Take 2 tablets by mouth 2 (two) times daily. 02/10 at 0600 metroNIDAZOLE (FLAGYL) 500 MG tablet Take one 500 mg. Tablet by mouth at 7 pm and take one 500 mg. Tablet by mouth 9 pm the night prior to your procedure. 2 tablet 0 03/06/2017 at Unknown time Na sulfate-K sulfate-Mg sulf (SUPREP BOWEL PREP KIT) 17.5-3.13-1.6 GM/180ML SOLN Take 1 2 oz by mouth See Admin Instructions. Please follow your physicians instructions for use the day prior to your colonoscopy. 354 mL 0 03/06/2017 at Unknown time neomycin (MYCIFRADIN) 500 MG tablet Take two 500 mg tablets by mouth at 7 pm and Take t wo 500 mg tablets by mouth at 9 pm the night prior to your surgical procedure. 4 tablet 0 at Unknown time omeprazole (PRILOSEC) 40 MG capsule Take 40 mg by mouth 2 (two) times daily. Taking a t Unknown time potassium chloride (K-DUR,KLOR-CON) 20 MEQ tablet Take 1 tablet by mouth 2 (two) times daily. 60 tablet 11 03/07/2017 at Unknown time predniSONE (DELTASONE) 10 MG tablet Take 15 mg by mouth daily. Indications: 15 mg at Unknown time promethazine (PHENERGAN) 25 MG tablet Take 25 mg by mouth every 6 (six) hours as needed for Nausea. 03/06/2017 at Unknown time scopolamine (TRANSDERM-SCOP) 1 mg/3days patch Apply to hairless area behind the ear the night before your procedure. 1 patch 0 03/07/2017 at Unknown time gabapentin (NEURONTIN) 300 MG capsule Take 300 mg by mouth 3 (three) times daily. lactobacillus (FLORANEX) granules Take 1 packet by mouth 2 (two) times daily. 60 each 0 03/05/2017 Melatonin 5 MG CHEW Take 10 mg by mouth nightly as needed. Taking Multiple Vitamins-Minerals (MULTIVITAMIN WITH MINERALS) tablet Take 1 tablet by mouth d aily. Not Taking at Unknown time DISCHARGE EXAM Vital Signs: BP 174/77 (BP Location: Left upper arm) | Pulse 82 | Temp 98 F (36.7 C) (Axillary) | Resp 16 | Ht 1.727 m (5' 8") | Wt 77 kg (169 lb 12.1 oz) | SpO2 92% | BMI 25.81 kg/m Temp: [98 F (36.7 C)-99.3 F (37.4 C)] 98 F (36.7 C) (03/12 713) BP: (139-174)/(64-84) 174/77 (03/12 713) Heart Rate: [82-85] 82 (03/12 713) Resp: [16-18] 16 (03/12 713) SpO2: [86 %-92 %] 92 % (03/12 713) Weight: [77 kg (169 lb 12.1 oz)] 77 kg (169 lb 12.1 oz) (03/12 607) Physical Exam Constitutional: She is oriented to person, place, and time. She appears well-developed and well-nourished. Cardiovascular: Normal rate. Pulmonary/Chest: Effort normal. Abdomina/Gl: Soft. She exhibits no distension. There is no tenderness. There is no rebound and no guarding. Incision clean dry and intact. Ostomy functional with gas and stool in the bag. Neurological: She is alert and oriented to person, place, and time. Skin: Skin is warm and dry. Psychiatric: She has a normal mood and affect. Nursing note and vitals reviewed. DATA CBC: Lab Results Component Value Date WBC 18.17 (H) 03/12/2017 RBC 3.41 (L) 03/12/2017 HGB 8.5 (L) 03/12/2017 HCT 27.2 (L) 03/12/2017 MCV 79.8 (L) 03/12/2017 MCH 24.8 (L) 03/12/2017 MCHC 31.1 (L) 03/12/2017 RDW 63.0 (H) 03/12/2017 PLT 418 (H) 03/12/2017 MPV 9.5 03/12/2017 DIFFTYPE MANUAL 03/12/2017 CMP: Lab Results Component Value Date NA 140 03/11/2017 K 3.8 03/12/2017 K 4.5 04/23/2014 CL 103 03/11/2017 CO2 31 03/11/2017 ANIONGAP 10 03/11/2017 GLUF 86 03/11/2017 BUN 9 03/11/2017 CREATININE 0.7 03/11/2017 BCR 13 03/11/2017 CA 8.5 03/11/2017 PROT 6.4 03/08/2017 ALB 2.4 (L) 03/08/2017 GLOB 4.0 03/08/2017 BILITOT 0.6 03/08/2017 ALP 207 (H) 03/08/2017 AST 28 03/08/2017 ALT 37 03/08/2017 EGFR >60 03/11/2017 PLAN Wean of O2 Change midline dressing and ostomy appliance with ostomy/water pollution control inspector prior to discharge Discharge home Disposition: Home Condition: Stable Code Status: Full Code No discharge procedures on file. Follow up: JENARO Mathew [address] [place] [id number] Schedule an appointment as soon as possible for a visit in 2 weeks For wound re-check Medication List START taking these medications oxycodone 10 MG tablet QTY: 30 tablet Refills: 0 For diagnoses: Crohn's disease of large intestine with complication (HCC) Take 1 tablet by mouth every 4 (four) hours as needed for Pain (6 to 7) for up to 10 days. CONTINUE taking these medications acetaminophen 325 MG tablet QTY: 30 tablet Refills: 0 Commonly known as: TYLENOL Take 2 tablets by mouth every 6 (six) hours as needed for up to 10 days. gabapentin 300 MG capsule Refills: 0 Commonly known as: NEURONTIN lactobacillus granules QTY: 60 each Refills: 0 Take 1 packet by mouth 2 (two) times daily. Melatonin 5 MG Chew Refills: 0 metoprolol 25 MG tablet Refills: 0 Commonly known as: LOPRESSOR Take 2 tablets by mouth 2 (two) times daily. metroNIDAZOLE 500 MG tablet QTY: 2 tablet Refills: 0 Commonly known as: FLAGYL Take one 500 mg. Tablet by mouth at 7 pm and take one 500 mg. Tablet by mouth 9 pm the nigh t prior to your procedure. multivitamin with minerals tablet Refills: 0 Na sulfate-K sulfate-Mg sulf 17.5-3.13-1.6 GM/180ML Soln [...] n ight prior to your surgical procedure. omeprazole 40 MG capsule Refills: 0 Commonly known as: PRILOSEC potassium chloride SA 20 MEQ tablet QTY: 60 tablet Refills: 11 Commonly known as: K-DUR,KLOR-CON Take 1 tablet by mouth 2 (two) times daily. predniSONE 10 MG tablet Refills: 0 Commonly known as: DELTASONE promethazine 25 MG tablet Refills: 0 Commonly known as: PHENERGAN scopolamine 1 mg/3days patch QTY: 1 patch Refills: 0 Commonly known as: TRANSDERM-SCOP Apply to hairless area behind the ear the night before your procedure. You might also be taking other medications not listed above. If you have questions about an y of your other medications, talk to the person who prescribed them or your Primary Care Pro vider. STOP taking these medications oxyCODONE-acetaminophen 10-325 MG per tablet Commonly known as: PERCOCET ASK your doctor about these medications enoxaparin 80 MG/0.8ML Soln QTY: 5.6 mL Refills: 0 Commonly known as: LOVENOX Inject 0.7 mLs into the skin every 12 (twelve) hours for 8 doses. Ask about: Should I take this medication? Where to Get Your Medications You can get these medications from any pharmacy Bring a paper prescription for each of these medications oxycodone 10 MG tablet Discharge took 20 minutes, to include final examination, discussion of admission, and prepa ration of prescriptions, instructions for on-going care, follow-up and documentation of disc harge summary. JENARO MATHEW 03/12/2017 documented in t his encounter Medications at Time of Discharge + [...] | 11 | 03/02/20 | | | (KLOR-CON M20) 20 | mouth 2 (two) times | tablet | | 17 | 8 | | mEq ER tablet | daily. | | | | | + + + +---------+ + + documented as of this encounter Progress Notes Conversion Transaction, Provider Unknown - 03/12/2017 2:15 PM PSTFormatting of this note m ight be different from the original. Nurse Progress Note by Catracho Almaguer RN at 03/12/17 1415 Author: Catracho Almaguer RN Service: Wound/Ostomy Care Author Type: Registered Nurse Filed: 03/12/17 1422 Date of Service: 03/12/171414 Status: Signed Meat Process Worker: Catracho Almaguer RN (Registered Nurse) [facility] Service: Ostomy Care Consult Note Hospital Day: LOS: 5 days Post-Op Day: 5 Days Post-Op SUBJECTIVE Patient Summary: 3rd teaching Events Overnight: none OBJECTIVE Ostomy Type: Colostomy Ostomy Size: 75" Lumen Position: center Stoma: Moist, Well Budded and Red Amanda-stomal: Clean, Dry, Intact, Red, Denuded and Painful Current Appliance: 1 piece with Yvette's ring at base layer PROBLEM LIST Principal Problem: Rectovaginal fistula Active Problems: Crohn's disease (HCC) GERD (gastroesophageal reflux disease) Hypokalemia Leucocytosis Chronic anticoagulation Hypertension Diarrhea Smoker Chronic narcotic use ASSESSMENT & PLAN I arrived to aid with discharge, and apply a new appliance. The was with me when a pplying the new bag and is comfortable doing this at home. Discharge instructions were writ ten in the navigator and the patient is ready from an ostomy standpoint. Thank you for allowing me to participate in the care of this patient. Please call if there are any additional questions. Catracho Almaguer RN 03/12/2017 onver roshan Transaction, Provider Unknown - 03/12/2017 6:38 AM PST Progress Notes by Lashawn Valdez RN at 03/12/17637 Author: Lashawn Valdez RN Service: (none) Author Type: Registered Nurse Filed: 03/12/17637 Date of Service: 03/12/17637 Status: Signed Meat Process Worker: Lashawn Valdez RN (Registered Nurse) Dr mckeon in room to examine patient. onver roshan Transaction, Provider Unknown - 03/12/2017 6:19 AM PST Progress Notes by Lashawn Valdez RN at 03/12/17618 Author: Lashawn Valdez RN Service: (none) Author Type: Registered Nurse Filed: 03/12/17625 Date of Service: 03/12/17618 Status: Signed Meat Process Worker: Lashawn Valdez RN (Registered Nurse) Patient is complaining of anxiety and requesting ativan 2mg be given through her IV. Dr. Gui esteban notified to request . Also notified that patient became disoriented after receiving ativ an last night. Dr. Mckeon also notified that patient has required oxygen at 2L to maintain sa ts at 90-92%. onver roshan Transaction, Provider Unknown - 03/11/2017 4:31 PM PST Nurse Progress Note by Catracho Almaguer RN at 03/11/171630 Author: Catracho Almaguer RN Service: Wound/Ostomy Care Author Type: Registered Nurse Filed: 03/11/172 Date of Service: 03/11/171630 Status: Signed Meat Process Worker: Catracho Almaguer RN (Registered Nurse) [facility] Service: Ostomy Care Consult Note Hospital Day: LOS: 4 days Post-Op Day: 4 Days Post-Op SUBJECTIVE Patient Summary: Ostomy care presents to provide teaching to the patient and her husb and OBJECTIVE Ostomy Type: Colostomy Ostomy Size: 75mm" Lumen Position: distal Stoma: Moist, Well Budded, Red and Purple Amanda-stomal: Clean, Dry, Intact, Red and Painful Current Appliance: large one piece with eakins ring on base of peristomal area PROBLEM LIST Principal Problem: Rectovaginal fistula Active Problems: Crohn's disease (HCC) GERD (gastroesophageal reflux disease) Hypokalemia Leucocytosis Chronic anticoagulation Hypertension Diarrhea Smoker Chronic narcotic use ASSESSMENT & PLAN I was able to provide detailed teaching to the patient's who should be able to aid in changing of the ostomy bag. There were detailed instructions written in the discharge na vigator due to the large stoma. Going forward, the patient and are now fairly comfor table with discharging tomorrow. Thank you for allowing me to participate in the care of this patient. Please call if there are any additional questions. Catracho Almaguer RN 03/11/2017 onver roshan Main, Provider Unknown - 03/11/2017 2:50 PM PST Progress Notes by Brooke Hawkins RD at 03/11/17 8889 Author: Brooke Hawkins RD Service: (none) Author Type: Registered Dietitian Filed: 03/11/17 7078 Date of Service: 03/11/171449 Status: Signed Meat Process Worker: Brooke Hawkins RD (Registered Dietitian) 03/11/17 9100 Subjective Timepoint Follow up Pt c/o In to f/u pt s/p colostomy. Reports to be tolerating po intake well, slighly nauseat ed with last meal although resolved without the need of any medication. Reported by Patient Fluid / Beverage Intake Oral Fluids Amount drinking water and ice tea. Requested ice tea with all meals, notified d iet techs. Liquid Meal Replacement or Supplement Will send Ensure Enlive BID at snack times. Strawberr y. Food Intake Amount of Food 50% veggie burger, bites of mashed potatoes, bites of tomato soup. Type of Food / Meals General diet Meal / Snack Pattern Pt ordering. Encouraged to order 4-6 small freq meals daily as they ma ybe better tolerated. Micronutrient Intake Mineral / Element Intake Potassium;Chloride Nutrition-Focused Physical Findings Digestive System (Mouth to Rectum) Reported nausea with last meals, however resolved withou t meds. Recommend zofran prn if nausea persists. Anthropometrics Weight change Wt up 7.7 kg since admit, per I/O's pt is fluid positive 7.3 L, continue to m onitor. Biochemical data, medical tests, and procedures reviewed Biochemical data, medical tests, and procedures reviewed labs reviewed. Recommendations Recommended energy needs Continue general diet as ordered. Sending Ensure Enlive BID as sna ck times to help meet nutritional needs. Encourage small freq meals daily (4-6/day). Continu e to follow. Nutritional Risk Nutritional risk High Follow up date 03/14/[address] onver roshan Transaction, Provider Unknown - 03/11/2017 1:06 PM PST Case Management by Kat Salter RN at 03/11/17 1306 Author: Kat Salter RN Service: (none) Author Type: Registered Nurse Filed: 03/11/17 1312 Date of Service: 03/11/17 1306 Status: Signed Meat Process Worker: Kat Salter RN (Registered Nurse) Discharge plan- patient will be able to return home with family when medically ready. CM ma de an ostomy appt for her on 03/16/17 at 0915. Information added to AVS. KAT SALTER RN Case Management [phone] onver roshan Transaction, Provider Unknown - 03/11/2017 12:28 PM PST Therapy Progress Note by Moses Pathak PTA at 03/11/17 1228 Author: Moses Pathak PTA Service: (none) Author Type: Submarine Operator Filed: 03/11/17 1232 Date of Service: 03/11/17 1228 Status: Signed Meat Process Worker: Moses Pathak PTA (Submarine Operator) 03/11/17 1228 PT Last Visit PT Received On 03/11/17 Reason for Treatment Other (comment) (colostomy) Requires PT Follow Up Yes Assistance Required 1 person Other Comments Comments pt supine in bed ready to participate completed transfer and gait training and re turned to sitting in chair Cognition Overall Cognitive Status WFL Orientation Level Oriented Bed Mobility Supine to Sit Standby assist Scooting Standby assist Transfers Sit to/from Stand Standby assist Bed to/from Chair Standby assist Mobility Ambulation Assistance Standby assist Maximal Ambulation Distance (feet) 120 Total Ambulation Distance (feet) 120 Distance limited by? Patient's ability Pattern Alternating;Decreased laisha Assistive Device Walker front wheeled Activity Tolerance Activity Tolerance Patient limited by fatigue Plan Treatment/Interventions Continue per Primary PT POC Progress Progressing toward goals Recommendation Recommendations Home Assist PT Ready for Discharge Yes PT recommendations were discussed and verified with supervising PT. The patient demonstrated no indication of pain during therapy session. Education Completed: Education Topics: Rationale for PT, bed mobility, transfer training with hand placement, gait training Completed with: Patient Completed by: Verbal Education, Demonstration Response to Education: stated understanding onver roshan Main Provider Unknown - 03/11/2017 11:27 AM PST Progress Notes by Dorina Jang at 03/11/17 1127 Author: Dorina Jang Service: (none) Author Type: Mobile Sales Consultant Filed: 03/11/17 1136 Date of Service: 03/11/171126 Status: Signed Meat Process Worker: Dorina Jang (Mobile Sales Consultant) Referral from RN to assess for emotional/spiritual coping. 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 She expresses frustrati on over how she never caught a "break." She is tearful as she wonders why and states she no longer believes in God. She states she has a supportive , but a very small network outside of him. 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 She states she has littl e meaning in her life at this time. I provided supportive listening and affirmation and mush silence as she spoke. I encourage d her to release her grief and tried to help align myself to her sorrows. Our conversation because her ostomy bag was leaking. Plan: Let pm seed tester know and revisit her later today. Would benefit from seed tester suppo rt and a bit of reframing her life going forward. Chaplain Sue KUNZ onver roshan Transaction, Provider Unknown - 03/11/2017 10:50 AM PST Nurse Progress Note by Catracho Almaguer RN at 03/11/17 1050 Author: Catracho Almaguer RN Service: Wound/Ostomy Care Author Type: Registered Nurse Filed: 03/11/17 1100 Date of Service: 03/11/17 1050 Status: Signed Meat Process Worker: Catracho Almaguer RN (Registered Nurse) Ostomy nurse presents to evaluate leaking ostomy as this patient's appliance is quite diffi cult and has only been holding for about 12 hours max at a time. The problems consist of cl ose proximity to the midline incision and a very large stoma. The stoma itself is larger th an the ostomy bags we supply here. The floor nurses have not been able to create a good sea l as of yet and the ostomy nurses have had to come in each time to place an appliance. The patient is worried that she will not be able to take care of her ostomy on her own and I feel her concerns are warranted. I provided teaching this morning and will return at 1400 today when her arrives to provide group teaching. I feel working with an Yvette's r ing as the base layer and cutting out the size on a one piece will hold better then what we have been doing. We have also sealed off the midline incision with Duoderm and Aquacel AG i s covering the actual incision. We will re-evaluate the patient's competency after teaching with her later today. However, I feel it may not be cho to send this patient home to care for her own ostomy if t he floor nurses are not even able to provide a good seal on her ostomy bag. Evita Caraballo MD - 03/11/2017 9:45 AM PST Progress Notes by Evita Sheldon MD at 03/11/17944 Author: Evita Sheldon MD Service: Hospitalist Author Type: Physician Filed: 03/11/1748 Date of Service: 03/11/17944 Status: Signed Meat Process Worker: Evita Sheldon MD (Physician) [facility] Service: Hospitalist Progress Note Pt: Smita Willingham AGE/SEX: 61 y.o. female ROOM: [address] [place] [address]- : 1955 PCP: No primary care provider on file. ADMIT DATE: 03/07/2017 TODAY'S DATE: 03/11/2017 Hospital Day/Hospital Course: LOS: 4 days 61 years old female with significant past medical history of complicated and resistant Croh n's disease who had failed outpatient Humira as well as prednisone, followed by Dr. Bird enciso, history of surgeries due to Crohn's flareup, rectovaginal fistula resulting in multiple u rinary tract infection, chronic narcotic use, she had a diverting colostomy and admitted wit h severe hypokalemia SP Lysis of adhesions and creation of an end colostomy. SUBJECTIVE: Patient seen and examine. She is lying flat. According to the trach the wound care nurse st garcia is big and having a difficult colostomy bag adjustment. She is talking to me appropriate ly. She is not in any kind of distress though. No chest pain, SOB, CHANDLER. No cough on recumbenc y. Had no orthopnea or PND. Still feeling tired and fatigued. No dizziness or lightheadedne ss. Scheduled Medications: enoxaparin 40 mg Subcutaneous Q24H gabapentin 300 mg Oral TID HYDROmorphone 0.5 mg Intravenous Q4H Or HYDROmorphone 1 mg Intravenous Q4H metoprolol 50 mg Oral BID nystatin Topical TID pantoprazole 40 mg Oral QAM AC potassium chloride SA 20 mEq Oral BID predniSONE 15 mg Oral Daily scopolamine 1 patch Transdermal Q72H warfarin 6 mg Oral Daily Continuous Infusions lactated ringers 50 mL/hr at 03/10/17 1401 PRN Medications [DISCONTINUED] acetaminophen OR acetaminophen, diphenhydrAMINE OR diphenhydrAMINE, heparin flush (PF), magnesium sulfate OR magnesium sulfate OR magnesium sulfate, chiquita atonin, naloxone, ondansetron OR ondansetron, oxyCODONE OR oxyCODONE OR oxyCODON E, phosphorus OR sodium phosphate IVPB 15 mmol OR sodium phosphate IVPB 30 mmol, rajendra yethylene glycol, potassium chloride OR potassium chloride OR potassium chloride, pr omethazine, zolpidem Allergy: Allergies Allergen Reactions Demerol [Meperidine] Other (See Comments) Unknown Erythromycin Other (See Comments) unknown Levofloxacin Other (See Comments) Tendinitis. Was prescribed 02/15/17 and tolerated without issues Reglan [Metoclopramide] Agitation Unknown Penicillins Nausea and Vomiting OBJECTIVE: Vitals: Patient Vitals for the past 24 hrs: BP Temp Temp src Pulse Resp SpO2 03/11/17 0701 143/65 98.3 F (36.8 C) Oral 83 18 96 % 03/11/17 0301 112/59 98.6 F (37 C) Oral 76 18 94 % 03/10/17 2329 126/56 98.2 F (36.8 C) Oral 74 18 96 % 03/10/17 1940 121/58 98.8 F (37.1 C) Oral 80 17 91 % 03/10/17 1505 117/81 98.9 F (37.2 C) Oral 82 16 93 % 03/10/17 1135 107/51 98.5 F (36.9 C) Oral 82 18 93 % I&O Detailed Table: Intake/Output Summary (Last 24 hours) at 03/11/17 0945 Last data filed at 03/11/17 0302 Gross per 24 hour Intake 1531 ml Output 450 ml Net 1081 ml Patient Vitals for the past 96 hrs: Weight 03/10/17 0600 84.4 kg (186 lb) Hemodynamics Last 24hrs: Physical Examination: Constitutional: She is lying flat. Wound care for the colostomy was in the room. HEENT: Neck supple, no JVD, non icteric sclera. Cardiovascular: Normal S1 and S2 Pulmonary/Chest: Effort normal and breath sounds normal. No stridor. No respiratory distres s. no wheezes. no rales. exhibits no tenderness. Abdominal: Soft. Nontender and new colostomy and it is working fine.. Extremeties/Musculoskeletal: Normal range of motion.exhibits no tenderness. exhibits no ed anabel. Neurological: Alert and oriented to person, place, and time. Moving all 4 extremities spon taneously Skin: Skin is warm and dry. No rash noted. No erythema. No pallor. Psychiatric: Has a normal mood and affect. Behavior is normal. Judgment normal. Not suicida l LABS: Recent Labs Lab 03/11/1743803/10/1741003/09/17 0503 WBC 17.35* 20.81* 23.25* HGB 7.7* 8.0* 6.9* HCT 25.1* 26.4* 23.4* PLT 370 360 375 NEUTOPHILPCT 59.92 -- -- MONOPCT 12.46 -- -- Recent Labs Lab 03/11/1743803/10/1741003/09/173 03/08/17 0452 03/07/17 1902 NA 140 139 139 141 144 K 3.9 4.0 4.0 3.4* 3.3* CL 103 101 105 106 108 CO2 31 33* 29 26 29 BUN 9 8 12 16 17 CREATININE 0.7 0.5 0.6 0.7 0.61 PROT -- -- -- 6.4 6.3 BILITOT -- -- -- 0.6 0.3 ALT -- -- -- 37 33 AST -- -- -- 28 26 Phosphorus: Lab Results Component Value Date PHOS 2.4 03/11/2017 Recent Labs Lab 03/11/1743803/10/1741003/09/17 0503 MG 1.8 1.6* 1.7 Recent Labs Lab 03/09/17 0503 INR 1.0 Results No results found for the last 72 hours. PROBLEM LIST Principal Problem: Rectovaginal fistula Active Problems: Crohn's disease (HCC) GERD (gastroesophageal reflux disease) Hypokalemia Leucocytosis Chronic anticoagulation Hypertension Diarrhea Smoker Chronic narcotic use ASSESSMENT & PLAN 61 years old female with significant past medical history of complicated and resistant Croh n's disease who had failed outpatient Humira as well as prednisone, followed by Dr. Bird enciso, history of surgeries due to Crohn's flareup, rectovaginal fistula resulting in multiple u rinary tract infection, chronic narcotic use, she had a diverting colostomy and admitted wit h severe hypokalemia Principal Problem: Rectovaginal fistula Lying flat comfortably. I discussed with the Alex the wound care nurse the stoma size is big. Having difficulty in adjusting the back. Colostomy is working fine otherwise. She is to lerating diet. Crohn's disease (HCC) Complicated with rectovaginal fistula. Post colostomy GERD (gastroesophageal reflux disease) On PPI. Hypokalemia Resolved Leucocytosis Probably related to the chronic steroid use. SHe is still having any leukocytosis better t hung yesterday Chronic anticoagulation For splenic vein thrombosis. We will restart anticoagulation today. Acute on chronic anemia: Hemoglobin dropped. We will transfuse 1 unit of packed RBCs. Her iron and iron percent sat uration is low. She is having I will deficiency anemia. I will give her intravenous iron tozoila bautista. His INR today is Recent Labs Lab 03/09/17 0503 INR 1.0 Risk of anticoagulation including warfarin/Lovenox explained in the detail to the patient w hich include but not limited to cerebral bleed that can lead to , sever hemorrhage, ski n necrosis/gangrene, hypersensitivity including anaphylactic reaction and possible damage to the liver. I told the patient that if did not get anticoagulation, will be at increased ris k of thromboembolic events including stroke. For now she is off Coumadin. Coumadin was rest arted on March 10. Hypertension Blood pressure appropriately controlled. Diarrhea Improved. Smoker Counseled about smoking. Chronic narcotic use Continue to monitor Patient diagnosed with: , and I agree with the following nutritional recommendations: Recommendations Recommended parenteral nutritional needs for pharmacy: If TPN is indicated, RD available to make recommendations as needed. Recommended energy needs: ADAT to general diet, once appropriate. Continue Impact as ordere d. Encourage po intake as tolerated. Monitor and follow as indicated. EVITA SHELDON MD, FACP 03/11/2017 9:45 AM Dictation software, [employer] Here, used which may contain error for similar sounding words even af ter review. Personal communication requested for any clarification. Portions of this chart may have been copied from previous notes for continuity of care purp ose Jordon Hauser ARNP - 03/11/2017 7:45 AM PST . Progress Notes by JENARO Mathew at 03/11/1733 Author: JENARO Mathew Service: General Surgery Author Type: Nurse Practitionying enciso Filed: 03/11/17 4318 Date of Service: 03/11/1728 Status: Signed Meat Process Worker: JENARO Mathew (Nurse Practitioner) [facility] Service: Colon & Rectal Surgery Progress Note Hospital Day: LOS: 4 days Post-Op Day: 4 Day Post-Op SUBJECTIVE Patient Summary: 61 y.o. female with Chron's and anovaginal fistulas SP colostomy Events Overnight: Pt doing better this morning. Abdominal pain is controlled with IV /PO meds. Colostomy noted with liquid stool and gas in the bag. She is tolerating a genera l diet without nausea and vomiting. Ambulating without difficulty. Vitals and labs stable. Scheduled Medications enoxaparin 40 mg Subcutaneous Q24H gabapentin 300 mg Oral TID metoprolol 50 mg Oral BID nystatin Topical TID pantoprazole 40 mg Oral QAM AC potassium chloride SA 20 mEq Oral BID predniSONE 15 mg Oral Daily scopolamine 1 patch Transdermal Q72H warfarin 6 mg Oral Daily Continuous Infusions iron dextran (INFED) IVPB 975 mg (03/11/17 1127) PRN Medications [DISCONTINUED] acetaminophen OR acetaminophen, diphenhydrAMINE OR diphenhydrAMINE, heparin flush (PF), magnesium sulfate OR magnesium sulfate OR magnesium sulfate, chiquita atonin, naloxone, ondansetron OR ondansetron, oxyCODONE OR oxyCODONE OR oxyCODON E, phosphorus OR sodium phosphate IVPB 15 mmol OR sodium phosphate IVPB 30 mmol, rajendra yethylene glycol, potassium chloride OR potassium chloride OR potassium chloride, pr omethazine, zolpidem OBJECTIVE Vital Signs: BP 139/64 (BP Location: Left upper arm) | Pulse 84 | Temp 98.2 F (36.8 C) (Oral) | R dago 18 | Ht 1.727 m (5' 8") | Wt 84.4 kg (186 lb) | SpO2 90% | BMI 28.28 kg/m Temp: [98.2 F (36.8 C)-98.9 F (37.2 C)] 98.2 F (36.8 C) (03/11 1236) BP: (112-143)/(56-81) 139/64 (03/11 1236) Heart Rate: [74-84] 84 (03/11 1236) Resp: [16-18] 18 (03/11 1236) SpO2: [90 %-96 %] 90 % (03/11 1236) Physical Exam Constitutional: She is oriented to person, place, and time. She appears well-developed and well-nourished. Cardiovascular: Normal rate. Pulmonary/Chest: Effort normal. Abdomina/Gl: Soft. She exhibits no distension. There is no tenderness. There is no rebound and no guarding. Neurological: She is alert and oriented to person, place, and time. Skin: Skin is warm and dry. Psychiatric: She has a normal mood and affect. Her behavior is normal. Nursing note and vitals reviewed. DATA CBC: Lab Results Component Value Date WBC 17.35 (H) 03/11/2017 RBC 3.18 (L) 03/11/2017 HGB 7.7 (L) 03/11/2017 HCT 25.1 (L) 03/11/2017 MCV 78.9 (L) 03/11/2017 MCH 24.3 (L) 03/11/2017 MCHC 30.8 (L) 03/11/2017 RDW 64.3 (H) 03/11/2017 PLT 370 03/11/2017 MPV 9.0 03/11/2017 DIFFTYPE AUTOMATED 03/11/2017 CMP: Lab Results Component Value Date NA 140 03/11/2017 K 3.9 03/11/2017 K 4.5 04/23/2014 CL 103 03/11/2017 CO2 31 03/11/2017 ANIONGAP 10 03/11/2017 GLUF 86 03/11/2017 BUN 9 03/11/2017 CREATININE 0.7 03/11/2017 BCR 13 03/11/2017 CA 8.5 03/11/2017 PROT 6.4 03/08/2017 ALB 2.4 (L) 03/08/2017 GLOB 4.0 03/08/2017 BILITOT 0.6 03/08/2017 ALP 207 (H) 03/08/2017 AST 28 03/08/2017 ALT 37 03/08/2017 EGFR >60 03/11/2017 Magnesium: Lab Results Component Value Date MG 1.8 03/11/2017 Phosphorus: Lab Results Component Value Date PHOS 2.4 03/11/2017 PROBLEM LIST Principal Problem: Rectovaginal fistula Active Problems: Crohn's disease (HCC) GERD (gastroesophageal reflux disease) Hypokalemia Leucocytosis Chronic anticoagulation Hypertension Diarrhea Smoker Chronic narcotic use ASSESSMENT & PLAN POD # 4 from a open colostomy. -Appreciate hospitalists consult and recommendations -Continue PT to eval and treat, please encourage ambulation -D/C IV dilaudid, oxycodone 5-15 mg PRN -Continue Ostomy education and wound care -Plan for discharge tomorrow Disposition: Code Status: Full Code JENARO MATHEW 03/11/2017 onversion Black saction, Provider Unknown - 03/11/2017 1:00 AM PSTFormatting of this note might be differen t from the original. Progress Notes by Lashawn Valdez RN at 03/11/17 0100 Author: Lashawn Valdez RN Service: (none) Author Type: Registered Nurse Filed: 03/11/17 0143 Date of Service: 03/11/17 010 Status: Signed Meat Process Worker: Lashawn Valdez RN (Registered Nurse) Report given to Melany Rn, to assume care at this time. Elba Valdez RN Aniceto Akbar PT - 03/10/2017 3:20 PM PSTFormatting of this note might be different from the or iginal. Therapy Progress Note by Aniceto Chen PT at 03/10/17 1520 Author: Aniceto Chen PT Service: (none) Author Type: Physical Therapist Filed: 03/10/17 1633 Date of Service: 03/10/17 1520 Status: Signed Meat Process Worker: Aniceto Chen PT (Physical Therapist) 03/10/17 1520 PT Last Visit PT Received On 03/10/17 Reason for Treatment Other (comment) (s/p end colostomy) Requires PT Follow Up Awaiting tx order Follow up PT Only? No Focus for Next Treatment Transfer Technique PT Eval/Reassessment Date 03/10/17 Assistance Required 1 person Channel Man Needed No Precautions Other Precautions new colostomy Cognition Overall Cognitive Status WFL Orientation Level Oriented Oriented x 4 Bed Mobility Supine to Sit Min assist (1 LE OOB) Sit to Supine Min assist (1 LE into bed) Transfers Sit to/from Stand Minimal assist (steadying/contact guard) Mobility Weight Bearing Status WBAT RLE;WBAT LLE Ambulation Assistance Minimal assist Assistive Device Walker front wheeled Supine Supine-Exercise Type Ankle pumps;Quad sets;Glut sets Supine-Exercise Comments 10 x 2 Activity Tolerance Activity Tolerance Patient limited by fatigue;Patient limited by pain Nurse Made Aware RN aware Plan Treatment/Interventions Continue per Primary PT POC;Bed mobility training;Gait training;Pro vide HEP;Therapeutic exercise;Transfer training Progress Improving as expected PT Frequency Twice a day Care Duration (# of days) 5 # of days Recommendation Recommendations Prior Setting;Home Assist Equipment Recommended None Aniceto Altamirano PT - 03/10/2017 3:20 PM PST Therapy Progress Note by Aniceto Chen PT at 03/10/17 1520 Author: Aniceto Chen PT Service: (none) Author Type: Physical Therapist Filed: 03/10/17 1632 Date of Service: 03/10/17 1520 Status: Signed Meat Process Worker: Aniceto Chen PT (Physical Therapist) 03/10/17 1520 PT Last Visit PT Received On 03/10/17 Reason for Treatment Other (comment) (s/p end colostomy) Requires PT Follow Up Awaiting tx order Follow up PT Only? No Focus for Next Treatment Transfer Technique PT Eval/Reassessment Date 03/10/17 Assistance Required 1 person Channel Man Needed No Home Environment Type of Home Home one story Home Exterior Layout 1-3 steps (1 entry step) Home Equipment Walker front wheeled Prior Function Level of [place] Independent with functional mobility;Independent with ADLs Falls in Past Year No Lives With Spouse Employment Retired for age Comments pt is a 61 y/o female s/p lysis of adhesions and end colostomy. She lives in [facility] with her spouse in a single story home. Prior to recent complications which resu lted in her admission and surgical intervention she was independent with ADL's, ambulation w ithout assistive device. Today she is feeling better than she had been feeling yesterday and is agreeable to evaluation. She has been up and ambulating with nursing once today. Cognition Overall Cognitive Status WFL Orientation Level Oriented Oriented x 4 Assessment of Patient Status Assessment of Patient Status Decreased LE strength;Decreased functional mobility;Decreased endurance;Precautions;Pain Prognosis Should progress with skilled therapy intervention Precautions Other Precautions new colostomy Activity Tolerance Endurance Fair Sitting Balance Sits without upper extremity support up to 30 sec Plan Treatment/Interventions Continue per Primary PT POC;Bed mobility training;Gait training;Pro vide HEP;Therapeutic exercise;Transfer training Progress Improving as expected PT Frequency Twice a day Care Duration (# of days) 5 # of days Recommendation Recommendations Prior Setting;Home Assist Equipment Recommended None onversion Transactjayden n, Provider Unknown - 03/10/2017 1:13 PM PST Nurse Progress Note by Catracho Almaguer RN at 03/10/17 294 Author: Catracho Almaguer RN Service: Wound/Ostomy Care Author Type: Registered Nurse Filed: 03/10/175 Date of Service: 03/10/171312 Status: Signed Meat Process Worker: Catracho Almaguer RN (Registered Nurse) Ostomy nurse presents to evaluate ileostomy as the floor nurse has been having trouble with keeping an appliance on. On inspection, there was dried stomahesive paste under the applia nce, this was removed. Also, the stoma itself is a little bit too large for the 70mm wafers we have here. I stretched a ostomy wafer as large as it would go and it only barely covered the edges, an y lifting areas were calked shut with stomahesive paste. If this fails, I will attempt an e jagjit ring over the site. onver roshan Transaction, Provider Unknown - 03/10/2017 1:12 PM PST Case Management by LEVI Borrego at 03/10/17 1312 Author: LEVI Borrego Service: (none) Author Type: Shower Doors And Panels Fabricator Filed: 03/10/17 1313 Date of Service: 03/10/17 1312 Status: Signed Meat Process Worker: LEVI Borrego (Shower Doors And Panels Fabricator) Discharge planning: Pt return home with outpt ostomy care. CM entered sticky note for Dr to sign referrral. Evita Caraballo MD - 03/10/2017 10:41 AM PST Progress Notes by Evita Sheldon MD at 03/10/17 1041 Author: Evita Sheldon MD Service: Hospitalist Author Type: Physician Filed: 03/10/17 1101 Date of Service: 03/10/17 1041 Status: Signed Meat Process Worker: Evita Sheldon MD (Physician) [facility] Service: Hospitalist Progress Note Pt: Smita Willingham AGE/SEX: 61 y.o. female ROOM: [address] [place] [address] : 1955 PCP: No primary care provider on file. ADMIT DATE: 03/07/2017 TODAY'S DATE: 03/10/2017 Hospital Day/Hospital Course: LOS: 3 days 61 years old female with significant past medical history of complicated and resistant Croh n's disease who had failed outpatient Humira as well as prednisone, followed by Dr. Bird enciso, history of surgeries due to Crohn's flareup, rectovaginal fistula resulting in multiple u rinary tract infection, chronic narcotic use, she had a diverting colostomy and admitted wit h severe hypokalemia SP Lysis of adhesions and creation of an end colostomy. SUBJECTIVE: Patient seen and examine. He is feeling much better today. She sitting on a chair. Talking to me appropriately. She is not in any kind of distress. No chest pain, SOB, CHANDLER. No cough o n recumbency. Had no orthopnea or PND. Still feeling tired and fatigued. No dizziness or li ghtheadedness. Scheduled Medications: enoxaparin 40 mg Subcutaneous Q24H gabapentin 300 mg Oral TID metoprolol 50 mg Oral BID pantoprazole 40 mg Oral QAM AC potassium chloride SA 20 mEq Oral BID predniSONE 15 mg Oral Daily scopolamine 1 patch Transdermal Q72H Continuous Infusions lactated ringers 50 mL/hr at 03/10/17 0135 PRN Medications acetaminophen OR acetaminophen, diphenhydrAMINE OR diphenhydrAMINE, heparin flush ( PF), HYDROmorphone, magnesium sulfate OR magnesium sulfate OR magnesium sulfate, chiquita atonin, naloxone, ondansetron OR ondansetron, oxyCODONE-acetaminophen AND oxyCODONE, phosphorus OR sodium phosphate IVPB 15 mmol OR sodium phosphate IVPB 30 mmol, polye thylene glycol, potassium chloride OR potassium chloride OR potassium chloride, prom ethazine, zolpidem Allergy: Allergies Allergen Reactions Demerol [Meperidine] Other (See Comments) Unknown Erythromycin Other (See Comments) unknown Levofloxacin Other (See Comments) Tendinitis. Was prescribed 02/15/17 and tolerated without issues Reglan [Metoclopramide] Agitation Unknown Penicillins Nausea and Vomiting OBJECTIVE: Vitals: Patient Vitals for the past 24 hrs: BP Temp Temp src Pulse Resp SpO2 Weight 03/10/17 0742 117/56 98.9 F (37.2 C) Oral 86 16 90 % - 03/10/17 0600 - - - - - - 84.4 kg (186 lb) 03/10/17 0349 146/59 98.4 F (36.9 C) Oral 85 14 (!) 89 % - 03/09/17 2336 140/69 98.2 F (36.8 C) Oral 81 16 96 % - 03/09/17 1905 134/76 98.3 F (36.8 C) Oral 85 14 96 % - 03/09/17 1610 141/73 98.8 F (37.1 C) Oral 91 14 91 % - 03/09/17 1530 134/61 100 F (37.8 C) Oral 91 16 90 % - 03/09/17 1430 145/66 98.9 F (37.2 C) Oral 91 10 90 % - 03/09/17 1412 135/65 99.6 F (37.6 C) Oral 92 9 90 % - I&O Detailed Table: Intake/Output Summary (Last 24 hours) at 03/10/17 1041 Last data filed at 03/10/17 0600 Gross per 24 hour Intake 3035.1 ml Output 725 ml Net 2310.1 ml Patient Vitals for the past 96 hrs: Weight 03/10/17 0600 84.4 kg (186 lb) 03/07/17 0915 76.7 kg (169 lb 1.5 oz) Hemodynamics Last 24hrs: Physical Examination: Constitutional: She sitting on a chair. Talking to him appropriately. She tolerating diet. HEENT: Neck supple, no JVD, non icteric sclera. Cardiovascular: Normal S1 and S2 Pulmonary/Chest: Effort normal and breath sounds normal. No stridor. No respiratory distres s. no wheezes. no rales. exhibits no tenderness. Abdominal: Soft. Nontender and new colostomy. Extremeties/Musculoskeletal: Normal range of motion.exhibits no tenderness. exhibits no ed anabel. Neurological: Alert and oriented to person, place, and time. Moving all 4 extremities spon taneously Skin: Skin is warm and dry. No rash noted. No erythema. No pallor. Psychiatric: Has a normal mood and affect. Behavior is normal. Judgment normal. Not suicida l LABS: Recent Labs Lab 03/10/17 0411 03/09/17 0503 03/08/17 0452 WBC 20.81* 23.25* 27.26* HGB 8.0* 6.9* 7.6* HCT 26.4* 23.4* 26.2* PLT 360 375 452* Recent Labs Lab 03/10/17 0411 03/09/17 0503 03/08/17 0452 03/07/17 1902 NA 139 139 141 144 K 4.0 4.0 3.4* 3.3* CL 101 105 106 108 CO2 33* 29 26 29 BUN 8 12 16 17 CREATININE 0.5 0.6 0.7 0.61 PROT -- -- 6.4 6.3 BILITOT -- -- 0.6 0.3 ALT -- -- 37 33 AST -- -- 28 26 Phosphorus: Lab Results Component Value Date PHOS 2.1 (L) 03/10/2017 Recent Labs Lab 03/10/17 0411 03/09/17 0503 03/08/17 0452 MG 1.6* 1.7 2.0 Recent Labs Lab 03/09/17 0503 INR 1.0 Results No results found for the last 72 hours. PROBLEM LIST Principal Problem: Rectovaginal fistula Active Problems: Crohn's disease (HCC) GERD (gastroesophageal reflux disease) Hypokalemia Leucocytosis Chronic anticoagulation Hypertension Diarrhea Smoker Chronic narcotic use ASSESSMENT & PLAN 61 years old female with significant past medical history of complicated and resistant Croh n's disease who had failed outpatient Humira as well as prednisone, followed by Dr. Bird enciso, history of surgeries due to Crohn's flareup, rectovaginal fistula resulting in multiple u rinary tract infection, chronic narcotic use, she had a diverting colostomy and admitted wit h severe hypokalemia Principal Problem: Rectovaginal fistula She is feeling better. Sitting comfortably. Tolerating diet. She is not in any kind of dis tress. She is not having any nausea or vomiting. We will try to wean him off from oxygen. St atus post surgery ostomy. Diet per surgery. He is not lethargic today. Crohn's disease (HCC) Complicated with rectovaginal fistula. Post colostomy GERD (gastroesophageal reflux disease) On PPI. Hypokalemia Resolved Leucocytosis Probably related to the chronic steroid use. SHe is still having any leukocytosis better t hung yesterday Chronic anticoagulation For splenic vein thrombosis. We will restart anticoagulation today. Acute on chronic anemia: Hemoglobin dropped. We will transfuse 1 unit of packed RBCs. Will send iron panel. His INR today is Recent Labs Lab 03/09/17 0503 INR 1.0 Risk of anticoagulation including warfarin/Lovenox explained in the detail to the patient w hich include but not limited to cerebral bleed that can lead to , sever hemorrhage, ski n necrosis/gangrene, hypersensitivity including anaphylactic reaction and possible damage to the liver. I told the patient that if did not get anticoagulation, will be at increased ris k of thromboembolic events including stroke. For now she is off Coumadin. Restart anticoagu lation today Hypertension Blood pressure appropriately controlled. Diarrhea Improved. Smoker Counseled about smoking. Chronic narcotic use Continue to monitor Patient diagnosed with: , and I agree with the following nutritional recommendations: Recommendations Recommended parenteral nutritional needs for pharmacy: If TPN is indicated, RD available to make recommendations as needed. Recommended energy needs: ADAT to general diet, once appropriate. Continue Impact as ordere d. Encourage po intake as tolerated. Monitor and follow as indicated. EVITA SHELDON MD, FACP 03/10/2017 10:41 AM Dictation software, Rent Here, used which may contain error for similar sounding words even af ter review. Personal communication requested for any clarification. Portions of this chart may have been copied from previous notes for continuity of care purp ose Jordon Hauser ARNP - 03/10/2017 8:21 AM PST . Progress Notes by JENARO Mathew at 03/10/17820 Author: JENARO Mathew Service: General Surgery Author Type: Nurse Jennifer enciso Filed: 03/10/17822 Date of Service: 03/10/17820 Status: Signed Meat Process Worker: JENARO Mathew (Nurse Practitioner) [facility] Service: Colon & Rectal Surgery Progress Note Hospital Day: LOS: 3 days Post-Op Day: 3 Day Post-Op SUBJECTIVE Patient Summary: 61 y.o. female with Chron's and anovaginal fistulas SP colostomy Events Overnight: Pt doing better this morning. Abdominal pain is controlled with PC A. Colostomy noted with liquid stool and gas in the bag. She is tolerating a general diet now without nausea and vomiting. Vitals and labs stable. Scheduled Medications enoxaparin 40 mg Subcutaneous Q24H gabapentin 300 mg Oral TID metoprolol 50 mg Oral BID pantoprazole 40 mg Oral QAM AC potassium chloride SA 20 mEq Oral BID predniSONE 15 mg Oral Daily scopolamine 1 patch Transdermal Q72H Continuous Infusions lactated ringers 50 mL/hr at 03/10/17 0135 PRN Medications acetaminophen OR acetaminophen, diphenhydrAMINE OR diphenhydrAMINE, heparin flush ( PF), HYDROmorphone, magnesium sulfate OR magnesium sulfate OR magnesium sulfate, chiquita atonin, naloxone, ondansetron OR ondansetron, oxyCODONE-acetaminophen AND oxyCODONE, phosphorus OR sodium phosphate IVPB 15 mmol OR sodium phosphate IVPB 30 mmol, polye thylene glycol, potassium chloride OR potassium chloride OR potassium chloride, prom ethazine, zolpidem OBJECTIVE Vital Signs: BP 117/56 (BP Location: Right upper arm) | Pulse 86 | Temp 98.9 F (37.2 C) (Oral) | Resp 16 | Ht 1.727 m (5' 8") | Wt 84.4 kg (186 lb) | SpO2 90% | BMI 28.28 kg/m Temp: [98.2 F (36.8 C)-100 F (37.8 C)] 98.9 F (37.2 C) (03/10 742) BP: (117-146)/(56-76) 117/56 (03/10 742) Heart Rate: [81-92] 86 (03/10 742) Resp: [9-16] 16 (03/10 742) SpO2: [89 %-96 %] 90 % (03/10 742) Weight: [84.4 kg (186 lb)] 84.4 kg (186 lb) (03/10 06) Physical Exam Constitutional: She is oriented to person, place, and time. She appears well-developed and well-nourished. Cardiovascular: Normal rate. Pulmonary/Chest: Effort normal. Abdomina/Gl: Soft. She exhibits no distension. There is no tenderness. There is no rebound and no guarding. Neurological: She is alert and oriented to person, place, and time. Skin: Skin is warm and dry. Psychiatric: She has a normal mood and affect. Her behavior is normal. Nursing note and vitals reviewed. DATA CBC: Lab Results Component Value Date WBC 20.81 (H) 03/10/2017 RBC 3.44 (L) 03/10/2017 HGB 8.0 (L) 03/10/2017 HCT 26.4 (L) 03/10/2017 MCV 76.8 (L) 03/10/2017 MCH 23.3 (L) 03/10/2017 MCHC 30.3 (L) 03/10/2017 RDW 62.1 (H) 03/10/2017 PLT 360 03/10/2017 MPV 8.7 03/10/2017 DIFFTYPE MANUAL 03/10/2017 CMP: Lab Results Component Value Date NA 139 03/10/2017 K 4.0 03/10/2017 K 4.5 04/23/2014 CL 101 03/10/2017 CO2 33 (H) 03/10/2017 ANIONGAP 9 03/10/2017 GLUF 80 03/10/2017 BUN 8 03/10/2017 CREATININE 0.5 03/10/2017 BCR 16 03/10/2017 CA 8.5 03/10/2017 PROT 6.4 03/08/2017 ALB 2.4 (L) 03/08/2017 GLOB 4.0 03/08/2017 BILITOT 0.6 03/08/2017 ALP 207 (H) 03/08/2017 AST 28 03/08/2017 ALT 37 03/08/2017 EGFR >60 03/10/2017 Magnesium: Lab Results Component Value Date MG 1.6 (L) 03/10/2017 Phosphorus: Lab Results Component Value Date PHOS 2.1 (L) 03/10/2017 PROBLEM LIST Principal Problem: Rectovaginal fistula Active Problems: Crohn's disease (HCC) GERD (gastroesophageal reflux disease) Hypokalemia Leucocytosis Chronic anticoagulation Hypertension Diarrhea Smoker Chronic narcotic use ASSESSMENT & PLAN POD # 3 from a open colostomy. -Appreciate hospitalists consult and recommendations -Continue PT to eval and treat, please encourage ambulation -D/C TRAIN CONTROL TECHNICIAN, percocet and dilaudid for pain -General diet -Continue Ostomy education Disposition: Code Status: Full Code JENARO MATHEW 03/10/2017 onversion Black saction, Provider Unknown - 03/10/2017 5:03 AM PSTFormatting of this note might be differen t from the original. Nurse Progress Note by Angeles Tao RN at 03/10/17 050 Author: Angeles Tao RN Service: (none) Author Type: Registered Nurse Filed: 03/10/17505 Date of Service: 03/10/17502 Status: Signed Meat Process Worker: Angeles Tao RN (Registered Nurse) Pt very lethargic at start of shift with gradual improvement over the course of the night. Reports no pain when not moving but continues to push TRAIN CONTROL TECHNICIAN button often. Colostomy producing green liquid stool and gas, changed appliance x1 d/t leaking. Pt's diet was advanced to gene ral per surgeon. Pt incontinent x3 of large amount of urine. Discussed mobilizing with patiying nt, which she is very resistant to. Pt is noted to have excellent bed mobility. Angeles Tao RN onver roshan Transaction, Provider Unknown - 03/09/2017 7:57 PM PST Nurse Progress Note by Gris Yee RN at 03/09/171956 Author: Gris Yee RN Service: Obstetrics/Gynecology Author Type: Registered Nurse Filed: 03/09/172007 Date of Service: 03/09/171956 Status: Signed Meat Process Worker: Gris Yee RN (Registered Nurse) Pt continues to c/o pain but respiration drop down to 4-9 with TRAIN CONTROL TECHNICIAN. TRAIN CONTROL TECHNICIAN is stopped. Pt is a waken to verbel stimuli. PO Phenergan appears to helped nausea for no further request of any and is able to drink and take pills. Had good output via colostomy with flatus. Pt states t hat she is incontinence and That she does not know when she voids so I and O's are charted as occurrences. onver roshan Transaction, Provider Unknown - 03/09/2017 4:20 PM PST Case Management by Linnea Lezama RN at 03/09/17 1620 Author: Linnea Lezama RN Service: (none) Author Type: Registered Nurse Filed: 03/09/17 1716 Date of Service: 03/09/171619 Status: Signed Meat Process Worker: Linnea Lezama RN (Registered Nurse) 03/09/17 5520 Discharge Planning Evaluation Admitting Diagnosis Chron's disease, rectovaginal fistula, new colostomy Readmission Yes-within 14 days Reason for readmission Scheduled rectovaginal fistula repair Last discharge disposition Home Assistance available Yes Concerns for meeting needs No Living Arrangements Spouse/significant other Support Systems Spouse/significant other Type of Residence Private residence House type House-1 story Steps to enter (0) Independent with ADL's Yes Independent with Mobility Yes Type of Home Care Services Other (Comment) ([facility] for T[facility]) Mental Status Oriented;Other (comment) (Lethargic) Resources Financial concerns No Transportation issues No Patient/Family concerns No Prescription Plan Yes Name of Pharmacy [facility] in [place] Ostomy/Drains/Appliances Yes (New Colostomy) Anticipated Disposition Facility Type Home Met with pt who was oriented, but lethargic at this time, and discussed discharge planning, Pt is a 61 y.o., female who lives at home with her in [place], [place]. Pt is indepen dent with ADLs and mobility. Uses a cane and walker only as needed. Pt is currently set up with [facility] for TPN. Pt is on coumadin and follow up at the coumadin clinic in [place], [place]. Pt is not on home O2 or dialysis. Pt does have a new ostomy and will require new ostomy wound care at d/c. No other needs at this time. Patient's PCP is: Pt is scheduled to establish care with Dr. Davina Cox on 03/23 Patient's insurance: Medicare / UHC Coverage concerns: no concerns Medication coverage/concerns: no concerns Rx Bedside Delivery: TBD Community resources utilized / needed: Current with [facility] for [facility] / Will need new ost nel follow-up at d/c Assistance in transportation: spouse can provide transportation Identification of any specific education / training: none at this time Barriers to Discharge / Alternative housing needed: none at this time Anticipated DCP: TBD, likely home with spouse pending clinical course. Linnea Lezama RN CM onver roshan Transaction, Provider Unknown - 03/09/2017 9:30 AM PST Therapy Progress Note by Jaz Gonzáles PT at 03/09/17929 Author: Jaz Gonzáles PT Service: (none) Author Type: Physical Therapist Filed: 03/09/17953 Date of Service: 03/09/17929 Status: Signed Meat Process Worker: Jaz Gonzáles PT (Physical Therapist) 03/09/17929 PT Last Visit PT Received On 03/09/17 Requires PT Follow Up On hold Other Comments Comments Pts H&H very low at this time, pt will be getting blood and she is very nauseated at this time. Evita Caraballo MD - 03/09/2017 9:16 AM PST Progress Notes by Evita Sheldon MD at 03/09/17915 Author: Evita Sheldon MD Service: Hospitalist Author Type: Physician Filed: 03/09/17927 Date of Service: 03/09/17915 Status: Signed Meat Process Worker: Evita Sheldon MD (Physician) [facility] Service: Hospitalist Progress Note Pt: Smita Willingham AGE/SEX: 61 y.o. female ROOM: [address] [place] [address] : 1955 PCP: No primary care provider on file. ADMIT DATE: 03/07/2017 TODAY'S DATE: 03/09/2017 Hospital Day/Hospital Course: LOS: 2 days 61 years old female with significant past medical history of complicated and resistant Croh n's disease who had failed outpatient Humira as well as prednisone, followed by Dr. Bird enciso, history of surgeries due to Crohn's flareup, rectovaginal fistula resulting in multiple u rinary tract infection, chronic narcotic use, she had a diverting colostomy and admitted wit h severe hypokalemia SP Lysis of adhesions and creation of an end colostomy. SUBJECTIVE: Patient seen and examine. She continues to have nausea and pain. She was lethargic and sung ining carbon dioxide. ABGs reviewed. No chest pain, SOB, CHANDLER. No cough on recumbency. Had no orthopnea or PND. Still feeling tired and fatigued. No dizziness or lightheadedness. Scheduled Medications: enoxaparin 40 mg Subcutaneous Q24H gabapentin 300 mg Oral TID metoprolol 50 mg Oral BID pantoprazole 40 mg Oral QAM AC potassium chloride SA 20 mEq Oral BID predniSONE 15 mg Oral Daily scopolamine 1 patch Transdermal Q72H Continuous Infusions lactated ringers 110 mL/hr at 03/09/17 0557 sodium chloride (IV) PRN Medications acetaminophen OR acetaminophen, diphenhydrAMINE OR diphenhydrAMINE, heparin flush ( PF), HYDROmorphone, magnesium sulfate OR magnesium sulfate OR magnesium sulfate, chiquita atonin, naloxone, ondansetron OR ondansetron, oxyCODONE-acetaminophen AND oxyCODONE, phosphorus OR sodium phosphate IVPB 15 mmol OR sodium phosphate IVPB 30 mmol, polye thylene glycol, potassium chloride OR potassium chloride OR potassium chloride, prom ethazine, zolpidem Allergy: Allergies Allergen Reactions Demerol [Meperidine] Other (See Comments) Unknown Erythromycin Other (See Comments) unknown Levofloxacin Other (See Comments) Tendinitis. Was prescribed 02/15/17 and tolerated without issues Reglan [Metoclopramide] Agitation Unknown Penicillins Nausea and Vomiting OBJECTIVE: Vitals: Patient Vitals for the past 24 hrs: BP Temp Temp src Pulse Resp SpO2 03/09/17 0735 140/71 100.3 F (37.9 C) Oral 81 18 91 % 03/09/17 0309 129/61 98.9 F (37.2 C) Oral 87 18 91 % 03/08/17 2256 123/62 98.5 F (36.9 C) Oral 88 18 91 % 03/08/17 1923 122/58 99.1 F (37.3 C) Oral 97 18 93 % 03/08/17 1554 128/59 99 F (37.2 C) Oral 90 19 91 % I&O Detailed Table: Intake/Output Summary (Last 24 hours) at 03/09/17 0916 Last data filed at 03/09/17 0600 Gross per 24 hour Intake 2914.5 ml Output 260 ml Net 2654.5 ml Patient Vitals for the past 96 hrs: Weight 03/07/17 0915 76.7 kg (169 lb 1.5 oz) Hemodynamics Last 24hrs: Physical Examination: Constitutional: She is arousable. Awake and alert 3. Continue to have nausea. HEENT: Neck supple, no JVD, non icteric sclera. Cardiovascular: Normal S1 and S2 Pulmonary/Chest: Effort normal and breath sounds normal. No stridor. No respiratory distres s. no wheezes. no rales. exhibits no tenderness. Abdominal: Soft. Nontender and new colostomy. Extremeties/Musculoskeletal: Normal range of motion.exhibits no tenderness. exhibits no ed anabel. Neurological: Alert and oriented to person, place, and time. Moving all 4 extremities spon taneously Skin: Skin is warm and dry. No rash noted. No erythema. No pallor. Psychiatric: Has a normal mood and affect. Behavior is normal. Judgment normal. Not suicida l LABS: Recent Labs Lab 03/09/17 0503 03/08/17 0452 03/07/17 1902 WBC 23.25* 27.26* 25.36* HGB 6.9* 7.6* 7.8* HCT 23.4* 26.2* 26.4* PLT 375 452* 487* Recent Labs Lab 03/09/17 0503 03/08/17 0452 03/07/17 1902 NA 139 141 144 K 4.0 3.4* 3.3* CL 105 106 108 CO2 29 26 29 BUN 12 16 17 CREATININE 0.6 0.7 0.61 PROT -- 6.4 6.3 BILITOT -- 0.6 0.3 ALT -- 37 33 AST -- 28 26 Phosphorus: Lab Results Component Value Date PHOS 2.1 (L) 03/09/2017 Recent Labs Lab 03/09/17 0503 03/08/17 0452 03/07/17 1902 MG 1.7 2.0 2.2 Recent Labs Lab 03/09/17 050 INR 1.0 Results No results found for the last 72 hours. PROBLEM LIST Principal Problem: Rectovaginal fistula Active Problems: Crohn's disease (HCC) GERD (gastroesophageal reflux disease) Hypokalemia Leucocytosis Chronic anticoagulation Hypertension Diarrhea Smoker Chronic narcotic use ASSESSMENT & PLAN 61 years old female with significant past medical history of complicated and resistant Croh n's disease who had failed outpatient Humira as well as prednisone, followed by Dr. Bird enciso, history of surgeries due to Crohn's flareup, rectovaginal fistula resulting in multiple u rinary tract infection, chronic narcotic use, she had a diverting colostomy and admitted wit h severe hypokalemia Principal Problem: Rectovaginal fistula She continued to have nausea. I think her nausea is related to the narcotics. I recommend holding off from the narcotics. Status post surgery ostomy. She will be on IV fluids. Diet p er surgery. She was lethargic and retaining carbon dioxide. ABGs revealed she is well compen sated at this time. She is not acidotic. I do not think that she will benefit from BiPAP at this time Crohn's disease (HCC) Complicated with rectovaginal fistula. Post colostomy GERD (gastroesophageal reflux disease) On PPI. Hypokalemia It has improved. Leucocytosis Probably related to the chronic steroid use. SHe is still having any leukocytosis Chronic anticoagulation For splenic vein thrombosis. Acute on chronic anemia: Hemoglobin dropped. We will transfuse 1 unit of packed RBCs. Will send iron panel. His INR today is Recent Labs Lab 03/09/17 0503 INR 1.0 Risk of anticoagulation including warfarin/Lovenox explained in the detail to the patient w hich include but not limited to cerebral bleed that can lead to , sever hemorrhage, ski n necrosis/gangrene, hypersensitivity including anaphylactic reaction and possible damage to the liver. I told the patient that if did not get anticoagulation, will be at increased ris k of thromboembolic events including stroke. For now she is off Coumadin. Restart anticoagu lation tomorrow. Hypertension Blood pressure appropriately controlled. Diarrhea Improved. Smoker Counseled about smoking. Chronic narcotic use Continue to monitor Patient diagnosed with: , and I agree with the following nutritional recommendations: Recommendations Recommended parenteral nutritional needs for pharmacy: If TPN is indicated, RD available to make recommendations as needed. Recommended energy needs: ADAT to general diet, once appropriate. Continue Impact as ordere d. Encourage po intake as tolerated. Monitor and follow as indicated. EVITA SHELDON MD, FACP 03/09/2017 9:16 AM Dictation software, Rent Here, used which may contain error for similar sounding words even af ter review. Personal communication requested for any clarification. Portions of this chart may have been copied from previous notes for continuity of care purp ose Jordon Hauser ARNP - 03/09/2017 9:09 AM PST . Progress Notes by JENARO Mathew at 03/09/17 09 Author: JENARO Mathew Service: General Surgery Author Type: Nurse Practitione r Filed: 03/09/17 1057 Date of Service: 03/09/17908 Status: Signed Meat Process Worker: JENARO Mathew (Nurse Practitioner) [facility] Service: Colon & Rectal Surgery Progress Note Hospital Day: LOS: 2 days Post-Op Day: 1 Day Post-Op SUBJECTIVE Patient Summary: 61 y.o. female with Chron's and anovaginal fistulas SP colostomy Events Overnight: Pt complains of nausea this morning. Abdominal pain is controlled with TRAIN CONTROL TECHNICIAN. Colostomy noted with liquid stool and gas in the bag. Low H&H noted this morning at 6.9/23.4. Scheduled Medications enoxaparin 40 mg Subcutaneous Q24H gabapentin 300 mg Oral TID metoprolol 50 mg Oral BID pantoprazole 40 mg Oral QAM AC potassium chloride SA 20 mEq Oral BID predniSONE 15 mg Oral Daily scopolamine 1 patch Transdermal Q72H Continuous Infusions lactated ringers 110 mL/hr at 03/09/17 0557 sodium chloride (IV) PRN Medications acetaminophen OR acetaminophen, diphenhydrAMINE OR diphenhydrAMINE, heparin flush ( PF), HYDROmorphone, magnesium sulfate OR magnesium sulfate OR magnesium sulfate, chiquita atonin, naloxone, ondansetron OR ondansetron, oxyCODONE-acetaminophen AND oxyCODONE, phosphorus OR sodium phosphate IVPB 15 mmol OR sodium phosphate IVPB 30 mmol, polye thylene glycol, potassium chloride OR potassium chloride OR potassium chloride, prom ethazine, zolpidem OBJECTIVE Vital Signs: BP 140/71 (BP Location: Left upper arm) | Pulse 81 | Temp 100.3 F (37.9 C) (Oral) | Resp 18 | Ht 1.727 m (5' 8") | Wt 76.7 kg (169 lb 1.5 oz) | SpO2 91% | BMI 25.71 kg/m Temp: [98.5 F (36.9 C)-100.3 F (37.9 C)] 100.3 F (37.9 C) (03/09 735) BP: (122-140)/(58-71) 140/71 (03/09 735) Heart Rate: [81-97] 81 (03/09 735) Resp: [18-19] 18 (03/09 735) SpO2: [91 %-93 %] 91 % (03/09 735) Physical Exam Constitutional: She is oriented to person, place, and time. She appears well-developed and well-nourished. Cardiovascular: Normal rate. Pulmonary/Chest: Effort normal. Abdomina/Gl: Soft. She exhibits no distension. There is tenderness. There is no rebound and no guarding. Neurological: She is alert and oriented to person, place, and time. Skin: Skin is warm and dry. Psychiatric: She has a normal mood and affect. Her behavior is normal. Nursing note and vitals reviewed. DATA CBC: Lab Results Component Value Date WBC 23.25 (H) 03/09/2017 RBC 3.08 (L) 03/09/2017 HGB 6.9 (LL) 03/09/2017 HCT 23.4 (L) 03/09/2017 MCV 76.0 (L) 03/09/2017 MCH 22.4 (L) 03/09/2017 MCHC 29.5 (L) 03/09/2017 RDW 63.9 (H) 03/09/2017 PLT 375 03/09/2017 MPV 8.7 03/09/2017 DIFFTYPE MANUAL 03/09/2017 CMP: Lab Results Component Value Date NA 139 03/09/2017 K 4.0 03/09/2017 K 4.5 04/23/2014 CL 105 03/09/2017 CO2 29 03/09/2017 ANIONGAP 9 03/09/2017 GLUF 86 03/09/2017 BUN 12 03/09/2017 CREATININE 0.6 03/09/2017 BCR 20 03/09/2017 CA 8.5 03/09/2017 PROT 6.4 03/08/2017 ALB 2.4 (L) 03/08/2017 GLOB 4.0 03/08/2017 BILITOT 0.6 03/08/2017 ALP 207 (H) 03/08/2017 AST 28 03/08/2017 ALT 37 03/08/2017 EGFR >60 03/09/2017 Magnesium: Lab Results Component Value Date MG 1.7 03/09/2017 Phosphorus: Lab Results Component Value Date PHOS 2.1 (L) 03/09/2017 PROBLEM LIST Principal Problem: Rectovaginal fistula Active Problems: Crohn's disease (HCC) GERD (gastroesophageal reflux disease) Hypokalemia Leucocytosis Chronic anticoagulation Hypertension Diarrhea Smoker Chronic narcotic use ASSESSMENT & PLAN POD # 2 from a open colostomy. -Appreciate hospitalists consult and recommendations -Continue PT to eval and treat, encourage ambulation -Continue TRAIN CONTROL TECHNICIAN for pain management -Continue CLD per ERAS protocol -Continue Ostomy education -Scopolamine patch for nausea -1 Unit of PRBC -Accurate I&O please Disposition: Code Status: Full Code JENARO MATHEW 03/09/2017 onversion Black saction, Provider Unknown - 03/09/2017 6:56 AM PSTFormatting of this note might be differen t from the original. Progress Notes by Ruma Guerra RN at 03/09/17655 Author: Ruma Guerra RN Service: (none) Author Type: Registered Nurse Filed: 03/09/17 0659 Date of Service: 03/09/17655 Status: Signed Meat Process Worker: Ruma Guerra RN (Registered Nurse) Notified Dr. Bocanegra of HGB 6.9, orders to transfuse 1 unit of blood. Informed MD that pt continue to be lethargic throughout night but easily arousable. ETCO2 up to 65 at times. Re spiratory came up to do STAT ABG, results came back normal, pt compensated. Will possibly d /c TRAIN CONTROL TECHNICIAN this AM pending MD decision. Will inform day shift RN. onver roshan Transaction, Provider Unknown - 03/09/2017 4:57 AM PST Progress Notes by Ruma Guerra RN at 03/09/17456 Author: Ruma Guerra RN Service: (none) Author Type: Registered Nurse Filed: 03/09/17 0503 Date of Service: 03/09/17456 Status: Signed Meat Process Worker: Ruma Guerra RN (Registered Nurse) Pt been lethargic but alert and oriented x 4 when pt asked orientation questions. Pt states "I feel like I am getting the flu, my body ache and I feel tired all the time" Vitals WNL, pain managed by TRAIN CONTROL TECHNICIAN pump. Incontinent of urine. Does not want to get out of bed. Will contin ue to monitor. onver roshan Transaction, Provider Unknown - 03/08/2017 11:43 AM PST Progress Notes by Chata Guadalupe RD at 03/08/17 1143 Author: Chata Guadalupe RD Service: (none) Author Type: Registered Dietitian Filed: 03/08/17 1144 Date of Service: 03/08/17 114 Status: Signed Meat Process Worker: Chata Guadalupe RD (Registered Dietitian) 03/08/17 1124 Subjective Timepoint Admit Pt c/o Consult received for poor po intake and to check nutritional status. Pt s/p lysis of adhesions and creation of end colostomy. Reported by Patient Diet Experience Self-selected diet(s) followed Pt reports for the past week she was told to eat because she was malnourished. Per pt she was also on TPN for the past 3 weeks. Home Nutrition Support From previous admit, RD note reports pt was on "TPN from [facility] in [place]: 275 g Dextrose, 90 g AA, 40 g lipids, 1800 ml total vol daily. TPN runs 16 ho urs/day with 1 hour taper up and 1 hour taper down." Fluid / Beverage Intake Oral Fluids Amount Clear liquid- Pt was drinking iced tea at time of visit. Liquid Meal Replacement or Supplement Impact ordered. One Impact at bedside. Food Intake Type of Food / Meals Clear liquid: coffee, tea, impact only. Parenteral Nutrition Intake Rate/Solution RN reports no plan for TPN right now. Rate / Schedule LR running at 110 ml/hr. NS ordered for 20 ml/hr. Micronutrient Intake Mineral / Element Intake Potassium;Chloride Nutrition-Focused Physical Findings Digestive System (Mouth to Rectum) Pt reports she has jagged teeth. Anthropometrics Weight change Pt's BMI is 25.7 and pt is 121% of IBW. Pt reports she has lost 10# since pre vious admit. Per medical records on previous admit (03/01/17) pt weighed 74.2 kg which would be a 2.5 kg wt gain over the past 7 days. On 02/11/17 pt weighed 74.5 kg which would be a 2. 2 kg wt gain over the past 3.5 weeks. Biochemical data, medical tests, and procedures reviewed Biochemical data, medical tests, and procedures reviewed K 3.4 (L)- KCl ordered. Estimated Energy Needs Total Energy Estimated Needs 9545-8547 kcal/day Method for Estimating Needs 25-30 kcal/kg based on admit wt of 76.7 kg Estimated Protein Needs Total Protein Estimated Needs 92-115 g/day Method for Estimating Needs 1.2-1.5 g/kg based on admit wt of 76. 7 kg Recommendations Recommended parenteral nutritional needs for pharmacy If TPN is indicated, RD available to make recommendations as needed. Recommended energy needs ADAT to general diet, once appropriate. Continue Impact as ordered . Encourage po intake as tolerated. Monitor and follow as indicated. Nutritional Risk Nutritional risk High Follow up date 03/11/[address] [facility] Jordon zhu ARNP - 03/08/2017 11:25 AM PST Progress Notes by JENARO Mathew at 03/08/17 1531 Author: JENARO Mathew Service: General Surgery Author Type: Nurse Jennifer enciso Filed: 03/08/17 1374 Date of Service: 03/08/17 1426 Status: Signed Meat Process Worker: JENARO Mathew (Nurse Practitioner) [facility] Service: Colon & Rectal Surgery Progress Note Hospital Day: LOS: 1 day Post-Op Day: 1 Day Post-Op SUBJECTIVE Patient Summary: 61 y.o. female with Chron's and anovaginal fistulas SP colostomy Events Overnight: Doing well. She complains of nausea this morning but better now. Abdominal pain is controlled with TRAIN CONTROL TECHNICIAN. shoe cementer changed midline dressing, and ostomy appli ance. Vitals and labs stable. Scheduled Medications enoxaparin 40 mg Subcutaneous Q24H gabapentin 300 mg Oral TID metoprolol 50 mg Oral BID pantoprazole 40 mg Oral QAM AC potassium chloride SA 20 mEq Oral BID predniSONE 15 mg Oral Daily Continuous Infusions lactated ringers 110 mL/hr at 03/07/17 1745 sodium chloride (IV) PRN Medications acetaminophen OR acetaminophen, diphenhydrAMINE OR diphenhydrAMINE, heparin flush ( PF), HYDROmorphone, magnesium sulfate OR magnesium sulfate OR magnesium sulfate, chiquita atonin, naloxone, ondansetron OR ondansetron, oxyCODONE-acetaminophen AND oxyCODONE, phosphorus OR sodium phosphate IVPB 15 mmol OR sodium phosphate IVPB 30 mmol, polye thylene glycol, potassium chloride OR potassium chloride OR potassium chloride, prom ethazine, zolpidem OBJECTIVE Vital Signs: BP 119/58 (BP Location: Left upper arm) | Pulse 85 | Temp 98.5 F (36.9 C) (Oral) | R dago 18 | Ht 1.727 m (5' 8") | Wt 76.7 kg (169 lb 1.5 oz) | SpO2 93% | BMI 25.71 kg/m Temp: [98 F (36.7 C)-99.2 F (37.3 C)] 98.5 F (36.9 C) (03/08 725) BP: (104-164)/(54-99) 119/58 (03/08 725) Heart Rate: [84-99] 85 (03/08 725) Resp: [12-30] 18 (03/08 725) SpO2: [90 %-97 %] 93 % (03/08 725) Physical Exam DATA CBC: Lab Results Component Value Date WBC 27.26 (H) 03/08/2017 RBC 3.49 (L) 03/08/2017 HGB 7.6 (L) 03/08/2017 HCT 26.2 (L) 03/08/2017 MCV 75.1 (L) 03/08/2017 MCH 21.9 (L) 03/08/2017 MCHC 29.1 (L) 03/08/2017 RDW 62.1 (H) 03/08/2017 PLT 452 (H) 03/08/2017 MPV 8.7 03/08/2017 DIFFTYPE MANUAL 03/08/2017 CMP: Lab Results Component Value Date NA 141 03/08/2017 K 3.4 (L) 03/08/2017 K 4.5 04/23/2014 CL 106 03/08/2017 CO2 26 03/08/2017 ANIONGAP 12 03/08/2017 GLUF 83 03/08/2017 BUN 16 03/08/2017 CREATININE 0.7 03/08/2017 BCR 23 03/08/2017 CA 8.6 03/08/2017 PROT 6.4 03/08/2017 ALB 2.4 (L) 03/08/2017 GLOB 4.0 03/08/2017 BILITOT 0.6 03/08/2017 ALP 207 (H) 03/08/2017 AST 28 03/08/2017 ALT 37 03/08/2017 EGFR >60 03/08/2017 Magnesium: Lab Results Component Value Date MG 2.0 03/08/2017 Phosphorus: Lab Results Component Value Date PHOS 2.3 03/08/2017 PROBLEM LIST Principal Problem: Rectovaginal fistula Active Problems: Crohn's disease (HCC) GERD (gastroesophageal reflux disease) Hypokalemia Leucocytosis Chronic anticoagulation Hypertension Diarrhea Smoker Chronic narcotic use ASSESSMENT & PLAN POD # 1 from a open colostomy. -Appreciate hospitalists consult and recommendations -PT to eval and treat -Continue TRAIN CONTROL TECHNICIAN for pain management -Continue CLD per ERAS protocol -Continue Ostomy education -Continue lovenox for deep vein thrombosis prophylaxis -Encourage ambulation Disposition: Code Status: Full Code JENARO MATHEW 03/08/2017 Evita Massey MD - 03/08/2017 10:17 AM PST . Progress Notes by Evita Sheldon MD at 03/08/17 1017 Author: Evita Sheldon MD Service: Hospitalist Author Type: Physician Filed: 03/08/17 1032 Date of Service: 03/08/171016 Status: Signed Meat Process Worker: Evita Sheldon MD (Physician) [facility] Service: Hospitalist Progress Note Pt: Smita Willingham AGE/SEX: 61 y.o. female ROOM: [address] [place] [address] : 1955 PCP: No primary care provider on file. ADMIT DATE: 03/07/2017 TODAY'S DATE: 03/08/2017 Hospital Day/Hospital Course: LOS: 1 day 61 years old female with significant past medical history of complicated and resistant Croh n's disease who had failed outpatient Humira as well as prednisone, followed by Dr. Bird enciso, history of surgeries due to Crohn's flareup, rectovaginal fistula resulting in multiple u rinary tract infection, chronic narcotic use, she had a diverting colostomy and admitted wit h severe hypokalemia SP Lysis of adhesions and creation of an end colostomy. SUBJECTIVE: Patient seen and examine. Complaint of pain at the surgical site. She said she is feeling h ungry though. No chest pain, SOB, CHANDLER. No cough on recumbency. Had no orthopnea or PND. No A bdominal pain, N/V or fever. Still feeling tired and fatigued. No dizziness or lightheadedne ss. Scheduled Medications: enoxaparin 40 mg Subcutaneous Q24H gabapentin 300 mg Oral TID metoprolol 50 mg Oral BID pantoprazole 40 mg Oral QAM AC potassium chloride SA 20 mEq Oral BID predniSONE 15 mg Oral Daily Continuous Infusions lactated ringers 110 mL/hr at 03/07/17 1745 sodium chloride (IV) PRN Medications acetaminophen OR acetaminophen, diphenhydrAMINE OR diphenhydrAMINE, heparin flush ( PF), HYDROmorphone, magnesium sulfate OR magnesium sulfate OR magnesium sulfate, chiquita atonin, naloxone, ondansetron OR ondansetron, oxyCODONE-acetaminophen AND oxyCODONE, phosphorus OR sodium phosphate IVPB 15 mmol OR sodium phosphate IVPB 30 mmol, polye thylene glycol, potassium chloride OR potassium chloride OR potassium chloride, prom ethazine, zolpidem Allergy: Allergies Allergen Reactions Demerol [Meperidine] Other (See Comments) Unknown Erythromycin Other (See Comments) unknown Levofloxacin Other (See Comments) Tendinitis. Was prescribed 02/15/17 and tolerated without issues Reglan [Metoclopramide] Agitation Unknown Penicillins Nausea and Vomiting OBJECTIVE: Vitals: Patient Vitals for the past 24 hrs: BP Temp Temp src Pulse Resp SpO2 03/08/17 0725 119/58 98.5 F (36.9 C) Oral 85 18 93 % 03/08/17 0313 145/65 98.4 F (36.9 C) Oral 84 20 96 % 03/07/17 2327 135/89 98.2 F (36.8 C) Oral 99 22 96 % 03/07/17 1955 132/63 98.1 F (36.7 C) Oral 91 20 - 03/07/17 1900 126/62 - - 88 22 94 % 03/07/17 1800 113/59 - - 94 20 90 % 03/07/17 1700 144/65 - - 98 22 93 % 03/07/17 1635 136/61 - - 98 20 90 % 03/07/17 1610 164/70 - - 98 22 95 % 03/07/17 1540 143/70 - - 98 22 94 % 03/07/17 1525 140/67 - - 96 20 96 % 03/07/17 1510 147/67 - - 94 20 - 03/07/17 1500 127/60 98 F (36.7 C) Axillary 94 18 93 % 03/07/17 1440 - 99.2 F (37.3 C) Temporal 92 20 95 % 03/07/17 1435 145/69 - - 92 14 91 % 03/07/17 1430 137/67 - - 92 30 93 % 03/07/17 1425 161/62 - - 94 20 92 % 03/07/17 1420 143/66 - - 94 17 91 % 03/07/17 1415 140/58 - - 92 15 93 % 03/07/17 1410 148/69 - - 92 15 93 % 03/07/17 1405 136/62 - - 94 15 91 % 03/07/17 1400 118/66 - - 92 29 93 % 03/07/17 1355 140/60 - - 88 18 92 % 03/07/17 1350 141/59 - - 90 18 94 % 03/07/17 1345 148/62 - - 90 20 94 % 03/07/17 1340 138/57 - - 90 27 95 % 03/07/17 1335 143/62 - - 88 12 92 % 03/07/17 1330 141/58 - - 88 16 94 % 03/07/17 1325 145/62 - - 88 26 96 % 03/07/17 1320 135/64 - - 88 24 95 % 03/07/17 1315 104/59 - - 90 24 96 % 03/07/17 1310 134/61 - - 88 22 95 % 03/07/17 1305 137/54 - - 90 20 95 % 03/07/17 1300 (!) 144/99 - - 88 24 97 % 03/07/17 1255 124/62 - - 88 24 90 % 03/07/17 1250 147/59 - - 90 15 96 % 03/07/17 1245 141/72 - - 90 16 98 % 03/07/17 1240 136/71 - - 90 18 96 % 03/07/17 1235 139/69 - - 88 21 99 % 03/07/17 1230 120/70 - - 88 24 98 % 03/07/17 1225 129/63 - - 88 29 99 % 03/07/17 1221 123/53 - - - 20 98 % 03/07/17 1220 123/53 - - 88 22 98 % 03/07/17 1218 (!) 82/53 98.1 F (36.7 C) Temporal 88 14 97 % I&O Detailed Table: Intake/Output Summary (Last 24 hours) at 03/08/17 1017 Last data filed at 03/08/17 0700 Gross per 24 hour Intake 3061 ml Output 1715 ml Net 1346 ml Patient Vitals for the past 96 hrs: Weight 03/07/17 0915 76.7 kg (169 lb 1.5 oz) Hemodynamics Last 24hrs: Physical Examination: Constitutional: Alert and oriented to person, place, and time. HEENT: Neck supple, no JVD, non icteric sclera. Cardiovascular: Normal rate, regular rhythm, normal heart sounds with S1 and S2, and intact distal pulses. Exam reveals no gallop and no friction rub. No murmur heard. Pulmonary/Chest: Effort normal and breath sounds normal. No stridor. No respiratory distres s. no wheezes. no rales. exhibits no tenderness. Abdominal: Soft. Nontender and new colostomy. Extremeties/Musculoskeletal: Normal range of motion.exhibits no tenderness. exhibits no ed anabel. Neurological: Alert and oriented to person, place, and time. Moving all 4 extremities spon taneously Skin: Skin is warm and dry. No rash noted. No erythema. No pallor. Psychiatric: Has a normal mood and affect. Behavior is normal. Judgment normal. Not suicida l LABS: Recent Labs Lab 03/08/1745103/07/17190103/02/17 0405 WBC 27.26* 25.36* 18.55* HGB 7.6* 7.8* 8.5* HCT 26.2* 26.4* 28.4* PLT 452* 487* 521* Recent Labs Lab 03/08/1745103/07/17190103/02/17 0405 NA 141 144 142 K 3.4* 3.3* 3.5 CL 106 108 116* CO2 26 29 17* BUN 16 17 25 CREATININE 0.7 0.61 0.7 PROT 6.4 6.3 6.4 BILITOT 0.6 0.3 0.6 ALT 37 33 63 AST 28 26 71* Phosphorus: Lab Results Component Value Date PHOS 2.3 03/08/2017 Recent Labs Lab 03/08/17 0452 03/07/17190103/02/17 0405 MG 2.0 2.2 2.1 Recent Labs Lab 03/02/17 0405 03/01/17190003/01/17 1723 APTT -- 32 -- INR 1.7 2.1 2.1 Recent Labs Lab 03/02/17 0405 TSH 1.47 Recent Labs Lab 03/01/171900 CKTOTAL 56 CKMBINDEX 4.6 Results No results found for the last 72 hours. PROBLEM LIST Principal Problem: Rectovaginal fistula Active Problems: Crohn's disease (HCC) GERD (gastroesophageal reflux disease) Hypokalemia Leucocytosis Chronic anticoagulation Hypertension Diarrhea Smoker Chronic narcotic use ASSESSMENT & PLAN 61 years old female with significant past medical history of complicated and resistant Croh n's disease who had failed outpatient Humira as well as prednisone, followed by Dr. Bird enciso, history of surgeries due to Crohn's flareup, rectovaginal fistula resulting in multiple u rinary tract infection, chronic narcotic use, she had a diverting colostomy and admitted wit h severe hypokalemia Principal Problem: Rectovaginal fistula Status post surgery ostomy. She will be on IV fluids. Diet per surgery. She was having aci dosis but it has improved Crohn's disease (HCC) Complicated with rectovaginal fistula. Post colostomy GERD (gastroesophageal reflux disease) On PPI. Hypokalemia It has improved. Leucocytosis Probably related to the chronic steroid use. Chronic anticoagulation For splenic vein thrombosis. His INR today is Recent Labs Lab 03/02/17 0405 INR 1.7 Risk of anticoagulation including warfarin/Lovenox explained in the detail to the patient w hich include but not limited to cerebral bleed that can lead to , sever hemorrhage, ski n necrosis/gangrene, hypersensitivity including anaphylactic reaction and possible damage to the liver. I told the patient that if did not get anticoagulation, will be at increased ris k of thromboembolic events including stroke. For now she is off Coumadin. Will be restarted by surgeon Hypertension Blood pressure appropriately controlled. Diarrhea Improved. Smoker Counseled about smoking. Chronic narcotic use Continue to monitor Patient diagnosed with: , and I agree with the following nutritional recommendations: EVITA SHELDON MD, FACP 03/08/2017 10:17 AM Dictation software, Rent Here, used which may contain error for similar sounding words even af ter review. Personal communication requested for any clarification. Portions of this chart may have been copied from previous notes for continuity of care purp ose onversion Transac tion, Provider Unknown - 03/08/2017 7:37 AM PSTFormatting of this note might be different f rom the original. 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 Thank you! Jazmyn Beard RN, BSN, CIC onver roshan Transaction, Provider Unknown - 03/07/2017 3:04 PM PST Progress Notes by Sofía Chamberlain RPH at 03/07/17 150 Author: Sofía Chamberlain RPH Service: Pharmacy Author Type: Pharmacist Filed: 03/07/171503 Date of Service: 03/07/171503 Status: Signed Meat Process Worker: Sofía Chamberlain RPH (Pharmacist) Clinical Pharmacy Note: Renal Monitoring Smita Willingham 61 y.o. female Ht Readings from Last 1 Encounters: 03/07/17 1.727 m (5' 8") Wt Readings from Last 1 Encounters: 03/07/17 76.7 kg (169 lb 1.5 oz) Serum creatinine: 0.7 mg/dL 03/02/17 0405 Estimated creatinine clearance: 91.9 mL/min Pharmacy dosing for renal function per Dr. Bocanegra. Currently, there are no updated labs. Pharmacy will adjust medications, if necessary, in AM when labs are reported. Sofía Chamberlain PharmD 03/07/2017 3:03 PM onver roshan Transaction, Provider Unknown - 03/07/2017 2:13 PM PST Nurse Progress Note by Vernell Tovar RN at 03/07/17 402 Author: Vernell Tovar RN Service: (none) Author Type: Registered Nurse Filed: 03/07/17 1415 Date of Service: 03/07/171412 Status: Signed Meat Process Worker: Melveyne Tovar, RN (Registered Nurse) Called anesthesia and informed of pt's frequent PVCs but pt denies chest pain or SOB. BP 14 8/69, heart rate 88-90 bpm. Per anesthesia, pt was also having PVCs in the OR. Anesthesia st ates that she will talk with Dr. Bocanegra for an order for pt to be on quality assurance monitor body on t he floor. Vernell Tovar RN docume nted in this encounter Plan of Treatment Not on filedocumented as of this encounter Procedures + +--------+ + + + | Procedure Name | Priori | Date/Time | Associated Diagnosis | Comments | | | ty | | | | + +--------+ + + + | XR CHEST 1 VIEW | Routin | 03/12/2017 | | Results for this | | | e | 6:40 AM | | procedure are in the | | | | PST | | results section. | + +--------+ + + + | EXTERNAL LAB: CBC | Routin | 03/12/2017 | | Results for this | | | e | 3:21 AM | | procedure are in the | | | | PST | | results section. | + +--------+ + + + | POTASSIUM | Routin | 03/12/2017 | | Results for this | | | e | 3:21 AM | | procedure are in the | | | | PST | | results section. | + +--------+ + + + | PHOSPHORUS | Routin | 03/12/2017 | | Results for this | | | e | 3:21 AM | | procedure are in the | | | | PST | | results section. | + +--------+ + + + | MAGNESIUM | Routin | 03/12/2017 | | Results for this | | | e | 3:21 AM | | procedure are in the | | | | PST | | results section. | + +--------+ + + + | EXTERNAL LAB: CBC | Routin | 03/11/2017 | | Results for this | | | e | 4:39 AM | | procedure are in the | | | | PST | | results section. | + +--------+ + + + | PHOSPHORUS | Routin | 03/11/2017 | | Results for this | | | e | 4:39 AM | | procedure are in the | | | | PST | | results section. | + +--------+ + + + | MAGNESIUM | Routin | 03/11/2017 | | Results for this | | | e | 4:39 AM | | procedure are in the | | | | PST | | results section. | + +--------+ + + + | BASIC METABOLIC | Routin | 03/11/2017 | | Results for this | | PANEL | e | 4:39 AM | | procedure are in the | | | | PST | | results section. | + +--------+ + + + | EXTERNAL LAB: CBC | Routin | 03/10/2017 | | Results for this | | | e | 4:11 AM | | procedure are in the | | | | PST | | results section. | + +--------+ + + + | PHOSPHORUS | Routin | 03/10/2017 | | Results for this | | | e | 4:11 AM | | procedure are in the | | | | PST | | results section. | + +--------+ + + + | MAGNESIUM | Routin | 03/10/2017 | | Results for this | | | e | 4:11 AM | | procedure are in the | | | | PST | | results section. | + +--------+ + + + | BASIC METABOLIC | Routin | 03/10/2017 | | Results for this | | PANEL | e | 4:11 AM | | procedure are in the | | | | PST | | results section. | + +--------+ + + + | IRON AND IRON | Routin | 03/09/2017 | | Results for this | | BINDING CAPACITY | e | 11:28 AM | | procedure are in the | | | | PST | | results section. | + +--------+ + + + | EXTERNAL LAB: CBC | Routin | 03/09/2017 | | Results for this | | | e | 5:03 AM | | procedure are in the | | | | PST | | results section. | + +--------+ + + + | PROTIME INR | Routin | 03/09/2017 | | Results for this | | | e | 5:03 AM | | procedure are in the | | | | PST | | results section. | + +--------+ + + + | PHOSPHORUS | Routin | 03/09/2017 | | Results for this | | | e | 5:03 AM | | procedure are in the | | | | PST | | results section. | + +--------+ + + + | MAGNESIUM | Routin | 03/09/2017 | | Results for this | | | e | 5:03 AM | | procedure are in the | | | | PST | | results section. | + +--------+ + + + | BASIC METABOLIC | Routin | 03/09/2017 | | Results for this | | PANEL | e | 5:03 AM | | procedure are in the | | | | PST | | results section. | + +--------+ + + + | EXTERNAL LAB: CBC | Routin | 03/08/2017 | | Results for this | | | e | 4:52 AM | | procedure are in the | | | | PST | | results section. | + +--------+ + + + | PHOSPHORUS | Routin | 03/08/2017 | | Results for this | | | e | 4:52 AM | | procedure are in the | | | | PST | | results section. | + +--------+ + + + | MAGNESIUM | Routin | 03/08/2017 | | Results for this | | | e | 4:52 AM | | procedure are in the | | | | PST | | results section. | + +--------+ + + + | COMPREHENSIVE | Routin | 03/08/2017 | | Results for this | | METABOLIC PANEL | e | 4:52 AM | | procedure are in the | | | | PST | | results section. | + +--------+ + + + | EXTERNAL LAB: CBC | Routin | 03/07/2017 | | Results for this | | | e | 7:02 PM | | procedure are in the | | | | PST | | results section. | + +--------+ + + + | PATHOLOGY CONSULT | Routin | 03/07/2017 | | Results for this | | REQUEST | e | 7:02 PM | | procedure are in the | | | | PST | | results section. | + +--------+ + + + | PHOSPHORUS | Routin | 03/07/2017 | | Results for this | | | e | 7:02 PM | | procedure are in the | | | | PST | | results section. | + +--------+ + + + | MAGNESIUM | Routin | 03/07/2017 | | Results for this | | | e | 7:02 PM | | procedure are in the | | | | PST | | results section. | + +--------+ + + + | COMPREHENSIVE | Routin | 03/07/2017 | | Results for this | | METABOLIC PANEL | e | 7:02 PM | | procedure are in the | | | | PST | | results section. | + +--------+ + + + | POC GLUCOSE | Routin | 03/07/2017 | | Results for this | | | e | 2:24 PM | | procedure are in the | | | | PST | | results section. | + +--------+ + + + documented in this encounter Results XR Chest 1 Vw (03/12/2017 6:40 AM PST) + + | Specimen | + + | | + + + + + | Impressions | Performed At | + + + | Left-sided Port-A-Cath device tip projects over the upper aspect of | | | the SVC. Stable appearance of the chest without acute cardiopulmonary | | | abnormality. [facility] Electronically signed by Boris Morales MD | | | on Mar 12 2017 7:39AM Referring Provider Line: [phone] ID: | | | [id number] | | + + + + + + | Narrative | Performed At | + + + | EXAM: CHEST RADIOGRAPHY EXAM DATE: 03/12/2017 06:41 AM. | | | CLINICAL HISTORY: Decreased oxygen saturation. COMPARISON: | | | 03/01/2017, 10/10/2015. TECHNIQUE: 1 view. FINDINGS: | | | Lungs/Pleura: Right hemidiaphragm elevation is noted. Bibasilar | | | opacities are present. These probably represent atelectasis and/or | | | scarring. There is a medium-sized hiatal hernia. Mediastinum: | | | Within exam limitations, the cardiomediastinal contour is normal. | | | Other: Right upper quadrant clips indicate prior cholecystectomy. | | | Left sided Port-A-Cath device tip projects over the upper aspect of | | | the SVC. Thoracic spine electrodes are seen. | | + + + + + | Procedure Note | + + | Tez Roper Conversion - 11/23/2018 2:13 AM PDT EXAM:CHEST RADIOGRAPHY EXAM DATE: | | 03/12/2017 06:41 AM. CLINICAL HISTORY: Decreased oxygen saturation. COMPARISON: | | 03/01/2017, 10/10/2015. TECHNIQUE: 1 view. FINDINGS:Lungs/Pleura: Right hemidiaphragm | | elevation is noted. Bibasilar opacities are present. These probably represent | | atelectasis and/or scarring. There is a medium-sized hiatal hernia. Mediastinum: Within | | exam limitations, the cardiomediastinal contour is normal. Other: Right upper quadrant | | clips indicate prior cholecystectomy. Left sided Port-A-Cath device tip projects over | | the upper aspect of the SVC. Thoracic spine electrodes are seen. IMPRESSION: Left-sided | | Port-A-Cath device tip projects over the upper aspect of the SVC. Stable appearance of | | the chest without acute cardiopulmonary abnormality. [facility] Electronically signed by | | Boris Morales MD on Mar 12 2017 7:39AM Referring Provider Line: [phone] ID: | | [id number] | |Lungs/Pleura: Right hemidiaphragm elevation is noted. Bibasilar opacities are present. Thes e probably represent atelectasis and/or scarring. There is a medium-sized hiatal hernia. | | | |Mediastinum: Within exam limitations, the cardiomediastinal contour is normal. | | | |Other: Right upper quadrant clips indicate prior cholecystectomy. Left sided Port-A-Cath d evice tip projects over the upper aspect of the SVC. Thoracic spine electrodes are seen. | | | |IMPRESSION: | |Left-sided Port-A-Cath device tip projects over the upper aspect of the SVC. Stable appeara nce of the chest without acute cardiopulmonary abnormality. | | | |[facility] | | | | Electronically signed by Boris Morales MD on Mar 12 2017 7:39AM Referring Provider Line: [phone] ID: [id number] | + + External Lab: CBC (03/12/2017 3:21 AM PST) + + +---- + + + | Component | Value | Ref Range | Performed | Pathologist | | | | | At | Signature | + + +---- + + + | WBC | 18.17 (H) | 3.8 0 - 11.00 | EXTERNAL | | | | | K/u L | LAB | | + + +---- + + + | RED CELL | 3.41 (L) | 3.7 0 - 5.10 | EXTERNAL | | | COUNT | | M/u L | LAB | | + + +---- + + + | Hgb | 8.5 (L) | 11. 3 - 15.5 | EXTERNAL | | | | | g/d L | LAB | | + + +---- + + + | Hematocrit, | 27.2 (L) | 34. 0 - 46.0 % | EXTERNAL | | | POC | | | LAB | | + + +---- + + + | MCV | 79.8 (L) | 80. 0 - 100.0 fl | EXTERNAL | | | | | | LAB | | + + +---- + + + | MCH | 24.8 (L) | 27. 0 - 34.0 pg | EXTERNAL | | | | | | LAB | | + + +---- + + + | MCHC | 31.1 (L) | 32. 0 - 35.5 | EXTERNAL | | | | | g/d L | LAB | | + + +---- + + + | RDW-CV | 63.0 (H) | 37 - 53 fl | EXTERNAL | | | | | | LAB | | + + +---- + + + | Platelet | 418 (H) | 150 - 400 K/uL | EXTERNAL | | | Count | | | LAB | | | Plasma | | | | | + + +---- + + + | MPV | 9.5 | fl | EXTERNAL | | | | | | LAB | | + + +---- + + + | Differentia | MANUAL | | EXTERNAL | | | l Type | | | LAB | | + + +---- + + + | Nucleated | 3 (H) | /10 0WBC | EXTERNAL | | | Red Blood | | | LAB | | | Cells | | | | | + + +---- + + + | Segmented | 59 | % | EXTERNAL | | | Neutrophils | | | LAB | | | Manual | | | | | + + +---- + + + | Lymphocytes | 24 | % | EXTERNAL | | | Manual | | | LAB | | + + +---- + + + | Monocytes | 12 | % | EXTERNAL | | | Manual | | | LAB | | + + +---- + + + | Eosinophils | 3 | % | EXTERNAL | | | Manual | | | LAB | | + + +---- + + + | Basophils | 2 | % | EXTERNAL | | | Manual | | | LAB | | + + +---- + + + | Absolute | 10.72 (H) | 1.9 0 - 7.40 | EXTERNAL | | | Neutrophils | | K/u L | LAB | | + + +---- + + + | Absolute | 4.36 (H) | 1.0 0 - 3.90 | EXTERNAL | | | Lymphocytes | | K/u L | LAB | | + + +---- + + + | Absolute | 2.18 (H) | 0.0 0 - 0.80 | EXTERNAL | | | Monocytes | | K/u L | LAB | | + + +---- + + + | Absolute | 0.55 (H) | 0.0 0 - 0.50 | EXTERNAL | | | Eosinophils | | K/u L | LAB | | + + +---- + + + | Absolute | 0.36 (H) | 0.0 0 - 0.10 | EXTERNAL | | | Basophils | | K/u L | LAB | | + + +---- + + + | Platelet | INCREASED | | EXTERNAL | | | Estimate | | | LAB | | + + +---- + + + | RBC | 1+Comment: | | EXTERNAL | | | Morphology | MICRO2+TARGET2+HYPO2+POI | | LAB | | | | K3+ANISONORMAL PLT | | | | | | MORPHTesting performed | | | | | | at [facility], [address] | | | | | | [facility], | | | | | | [place] [address] | | | | | |2+ | | | | | |POIK | | | | | |3+ | | | | | |ANISO | | | | | |NORMAL PLT MORPH | | | | | |Testing performed at [facility], [address] [place] [address] | | | | | | | | | | + + +---- + + + + + | Specimen | + + | Blood specimen | | (specimen) | + + + +---------+ + + | Performing | Address | City/State/Zipcode | Phone Number | | Organization | | | | + +---------+ + + | EXTERNAL LAB | | | | + +---------+ + + Potassium (03/12/2017 3:21 AM PST) + + + + + + | Component | Value | Ref Range | Performed | Pathologist | | | | | At | Signature | + + + + + + | K | 3.8Comment: SPECIMEN | 3.5 - 4.9 | EXTERNAL | | | | SLIGHTLY | mmol/L | LAB | | | | HEMOLYZEDTesting | | | | | | performed at [facility], [address] | | | | | | [address], | | | | | | [place] [address] | | | | + + + + + + + + | Specimen | + + | Blood specimen | | (specimen) | + + + +---------+ + + | Performing | Address | City/State/Zipcode | Phone Number | | Organization | | | | + +---------+ + + | EXTERNAL LAB | | | | + +---------+ + + Phosphorus (03/12/2017 3:21 AM PST) + + + + + + | Component | Value | Ref Range | Performed | Pathologist | | | | | At | Signature | + + + + + + | PHOSPHORUS | 2.1 (L)Comment: SPECIMEN | 2.3 - 4.8 mg/dL | EXTERNAL | | | | SLIGHTLY | | LAB | | | | HEMOLYZEDTesting | | | | | | performed at [facility], [address] | | | | | | [address], | | | | | | [place] [address] | | | | + + + + + + + + | Specimen | + + | Blood specimen | | (specimen) | + + + +---------+ + + | Performing | Address | City/State/Zipcode | Phone Number | | Organization | | | | + +---------+ + + | EXTERNAL LAB | | | | + +---------+ + + Magnesium (03/12/2017 3:21 AM PST) + + + + + + | Component | Value | Ref Range | Performed | Pathologist | | | | | At | Signature | + + + + + + | Magnesium | 1.6 (L)Comment: SPECIMEN | 1.7 - 2.4 mg/dL | EXTERNAL | | | | SLIGHTLY | | LAB | | | | HEMOLYZEDTesting | | | | | | performed at [facility], [address] | | | | | | [address], | | | | | | [place] [address] | | | | + + + [...] + +---------+ + + External Lab: CBC (03/11/2017 4:39 AM PST) + + + + + + | Component | Value | Ref Range | Performed | Pathologist | | | | | At | Signature | + + + + + + | WBC | 17.35 (H) | 3.80 - 11.00 | EXTERNAL | | | | | K/uL | LAB | | + + + + + + | RED CELL | 3.18 (L) | 3.70 - 5.10 | EXTERNAL | | | COUNT | | M/uL | LAB | | + + + + + + | Hgb | 7.7 (L) | 11.3 - 15.5 | EXTERNAL | | | | | g/dL | LAB | | + + + + + + | Hematocrit, | 25.1 (L) | 34.0 - 46.0 % | EXTERNAL | | | POC | | | LAB | | + + + + + + | MCV | 78.9 (L) | 80.0 - 100.0 fl | EXTERNAL | | | | | | LAB | | + + + + + + | MCH | 24.3 (L) | 27.0 - 34.0 pg | EXTERNAL | | | | | | LAB | | + + + + + + | MCHC | 30.8 (L) | 32.0 - 35.5 | EXTERNAL | | | | | g/dL | LAB | | + + + + + + | RDW-CV | 64.3 (H) | 37 - 53 fl | EXTERNAL | | | | | | LAB | | + + + + + + | Platelet | 370 | 150 - 400 K/uL | EXTERNAL | | | Count | | | LAB | | | Plasma | | | | | + + + + + + | MPV | 9.0 | fl | EXTERNAL | | | | | | LAB | | + + + + + + | Differentia | AUTOMATED | | EXTERNAL | | | l Type | | | LAB | | + + + + + + | % Segmented | 59.92 | % | EXTERNAL | | | | | | LAB | | | Neutrophils | | | | | + + + + + + | % | 23.90 | % | EXTERNAL | | | Lymphocytes | | | LAB | | + + + + + + | % Monocytes | 12.46 | % | EXTERNAL | | | | | | LAB | | + + + + + + | % | 3.15 | % | EXTERNAL | | | Eosinophils | | | LAB | | + + + + + + | % Basophils | 0.57 | % | EXTERNAL | | | | | | LAB | | + + + + + + | Absolute | 10.40 (H) | 1.90 - 7.40 | EXTERNAL | | | Segmented | | K/uL | LAB | | | Neutrophils | | | | | + + + + + + | Absolute | 4.15 (H) | 1.00 - 3.90 | EXTERNAL | | | Lymphocytes | | K/uL | LAB | | + + + + + + | Absolute | 2.16 (H) | 0.00 - 0.80 | EXTERNAL | | | Monocytes | | K/uL | LAB | | + + + + + + | Absolute | 0.55 (H) | 0.00 - 0.50 | EXTERNAL | | | Eosinophils | | K/uL | LAB | | + + + + + + | Absolute | 0.10 | 0.00 - 0.10 | EXTERNAL | | | Basophils | | K/uL | LAB | | + + + + + + | RBC | 4+ | | EXTERNAL | | | Morphology | Comment: | | LAB | | | | ANISO | | | | | | 2+ | | | | | | MICRO | | | | | | 1+ | | | | | | HYPO | | | | | | 1+ | | | | | | TARGET | | | | | | NORMAL PLT MORPH | | | | | | | | | | + + + + + + | Differentia | SLIDE SCANNED, AGREES | | EXTERNAL | | | l Comments | WITH AUTOMATED | | LAB | | | | RESULTS.Comment: Testing | | | | | | performed at [facility], [address] | | | [address], | | | | | | [place] [address] | | | | + + + + + + + + | Specimen | + + | Blood specimen | | (specimen) | + + + +---------+ + + | Performing | Address | City/State/Zipcode | Phone Number | | Organization | | | | + +---------+ + + | EXTERNAL LAB | | | | + +---------+ + + Phosphorus (03/11/2017 4:39 AM PST) + + + + + + | Component | Value | Ref Range | Performed | Pathologist | | | | | At | Signature | + + + + + + | PHOSPHORUS | 2.4Comment: Testing | 2.3 - 4.8 mg/dL | EXTERNAL | | | | performed at [facility], [address] | | LAB | | | | [address], | | | | | | [place] [address] | | | | + + + + + + + + | Specimen | + + | Blood specimen | | (specimen) | + + + +---------+ + + | Performing | Address | City/State/Zipcode | Phone Number | | Organization | | | | + +---------+ + + | EXTERNAL LAB | | | | + +---------+ + + Magnesium (03/11/2017 4:39 AM PST) + + + + + + | Component | Value | Ref Range | Performed | Pathologist | | | | | At | Signature | + + + + + + | Magnesium | 1.8Comment: Testing | 1.7 - 2.4 mg/dL | EXTERNAL | | | | performed at [facility], [address] | | LAB | | | | [address], | | | | | | [place] [address] | | | | + + + [...] + +---------+ + + Basic Metabolic Panel (03/11/2017 4:39 AM PST) + + + + + + | Component | Value | Ref Range | Performed | Pathologist | | | | | At | Signature | + + + + + + | Na | 140 | 135 - 145 | EXTERNAL | | | | | mmol/L | LAB | | + + + + + + | K | 3.9 | 3.5 - 4.9 | EXTERNAL | | | | | mmol/L | LAB | | + + + + + + | Cl | 103 | 99 - 109 mmol/L | EXTERNAL | | | | | | LAB | | + + + + + + | CO2 | 31 | 23 - 32 mmol/L | EXTERNAL | | | | | | LAB | | + + + + + + | Anion Gap | 10 | 5 - 20 mmol/L | EXTERNAL | | | | | | LAB | | + + + + + + | Glucose, | 86 | 65 - 99 mg/dL | EXTERNAL | | | Fasting | | | LAB | | + + + + + + | BUN | 9 | 8 - 25 mg/dL | EXTERNAL | | | | | | LAB | | + + + + + + | Creatinine | 0.7 | 0.50 - 1.00 | EXTERNAL | | | | | mg/dL | LAB | | + + + + + + | BUN/Creatin | 13 | | EXTERNAL | | | ine Ratio | | | LAB | | + + + + + + | Calcium | 8.5 | 8.5 - 10.5 | EXTERNAL | [...] | | | | | | at [facility], [address] | | | | | | [facility], | | | | | | [place] [address] | | | | + + + [...] + +---------+ + + External Lab: CBC (03/10/2017 4:11 AM PST) + + +---- + + + | Component | Value | Ref Range | Performed | Pathologist | | | | | At | Signature | + + +---- + + + | WBC | 20.81 (H) | 3.8 0 - 11.00 | EXTERNAL | | | | | K/u L | LAB | | + + +---- + + + | RED CELL | 3.44 (L) | 3.7 0 - 5.10 | EXTERNAL | | | COUNT | | M/u L | LAB | | + + +---- + + + | Hgb | 8.0 (L) | 11. 3 - 15.5 | EXTERNAL | | | | | g/d L | LAB | | + + +---- + + + | Hematocrit, | 26.4 (L) | 34. 0 - 46.0 % | EXTERNAL | | | POC | | | LAB | | + + +---- + + + | MCV | 76.8 (L) | 80. 0 - 100.0 fl | EXTERNAL | | | | | | LAB | | + + +---- + + + | MCH | 23.3 (L) | 27. 0 - 34.0 pg | EXTERNAL | | | | | | LAB | | + + +---- + + + | MCHC | 30.3 (L) | 32. 0 - 35.5 | EXTERNAL | | | | | g/d L | LAB | | + + +---- + + + | RDW-CV | 62.1 (H) | 37 - 53 fl | EXTERNAL | | | | | | LAB | | + + +---- + + + | Platelet | 360 | 150 - 400 K/uL | EXTERNAL | | | Count | | | LAB | | | Plasma | | | | | + + +---- + + + | MPV | 8.7 | fl | EXTERNAL | | | | | | LAB | | + + +---- + + + | Differentia | MANUAL | | EXTERNAL | | | l Type | | | LAB | | + + +---- + + + | Nucleated | 3 (H) | /10 0WBC | EXTERNAL | | | Red Blood | | | LAB | | | Cells | | | | | + + +---- + + + | Segmented | 74 | % | EXTERNAL | | | Neutrophils | | | LAB | | | Manual | | | | | + + +---- + + + | Lymphocytes | 18 | % | EXTERNAL | | | Manual | | | LAB | | + + +---- + + + | Monocytes | 8 | % | EXTERNAL | | | Manual | | | LAB | | + + +---- + + + | Absolute | 15.40 (H) | 1.9 0 - 7.40 | EXTERNAL | | | Neutrophils | | K/u L | LAB | | + + +---- + + + | Absolute | 3.75 | 1.0 0 - 3.90 | EXTERNAL | | | Lymphocytes | | K/u L | LAB | | + + +---- + + + | Absolute | 1.66 (H) | 0.0 0 - 0.80 | EXTERNAL | | | Monocytes | | K/u L | LAB | | + + +---- + + + | Platelet | INCREASED | | EXTERNAL | | | Estimate | | | LAB | | + + +---- + + + | RBC | 1+Comment: | | EXTERNAL | | | Morphology | MICRO2+ANISO2+TARGET3+HY | | LAB | | | | PONORMAL PLT | | | | | | MORPHTesting performed | | | | | | at [facility], [address] | | | | | | [facility], | | | | | | [place] [address] | | | | | |3+ | | | | | |HYPO | | | | | |NORMAL PLT MORPH | | | | | |Testing performed at [facility], [address] [facility], [place] [address] | | | | | | | | | | + + +---- + + + + + | Specimen | + + | Blood specimen | | (specimen) | + + + +---------+ + + | Performing | Address | City/State/Zipcode | Phone Number | | Organization | | | | + +---------+ + + | EXTERNAL LAB | | | | + +---------+ + + Phosphorus (03/10/2017 4:11 AM PST) + + + + + + | Component | Value | Ref Range | Performed | Pathologist | | | | | At | Signature | + + + + + + | PHOSPHORUS | 2.1 (L)Comment: Testing | 2.3 - 4.8 mg/dL | EXTERNAL | | | | performed at [facility], [address] | | LAB | | | | [address], | | | | | | [place] [address] | | | | + + + + + + + + | Specimen | + + | Blood specimen | | (specimen) | + + + +---------+ + + | Performing | Address | City/State/Zipcode | Phone Number | | Organization | | | | + +---------+ + + | EXTERNAL LAB | | | | + +---------+ + + Magnesium (03/10/2017 4:11 AM PST) + + + + + + | Component | Value | Ref Range | Performed | Pathologist | | | | | At | Signature | + + + + + + | Magnesium | 1.6 (L)Comment: Testing | 1.7 - 2.4 mg/dL | EXTERNAL | | | | performed at [facility], [address] | | LAB | | | | [address], | | | | | | [place] [address] | | | | + + + [...] + +---------+ + + Basic Metabolic Panel (03/10/2017 4:11 AM PST) + + + + + + | Component | Value | Ref Range | Performed | Pathologist | | | | | At | Signature | + + + + + + | Na | 139 | 135 - 145 | EXTERNAL | | | | | mmol/L | LAB | | + + + + + + | K | 4.0 | 3.5 - 4.9 | EXTERNAL | | | | | mmol/L | LAB | | + + + + + + | Cl | 101 | 99 - 109 mmol/L | EXTERNAL | | | | | | LAB | | + + + + + + | CO2 | 33 (H) | 23 - 32 mmol/L | EXTERNAL | | | | | | LAB | | + + + + + + | Anion Gap | 9 | 5 - 20 mmol/L | EXTERNAL | | | | | | LAB | | + + + + + + | Glucose, | 80 | 65 - 99 mg/dL | EXTERNAL | | | Fasting | | | LAB | | + + + + + + | BUN | 8 | 8 - 25 mg/dL | EXTERNAL | | | | | | LAB | | + + + + + + | Creatinine | 0.5 | 0.50 - 1.00 | EXTERNAL | | | | | mg/dL | LAB | | + + + + + + | BUN/Creatin | 16 | | EXTERNAL | | | ine Ratio | | | LAB | | + + + + + + | Calcium | 8.5 | 8.5 - 10.5 | EXTERNAL | [...] | | | | | | at [facility], [address] | | | | | | [address], | | | | | | [place] [address] | | | | + + + + + + + + | Specimen | + + | Blood specimen | | (specimen) | + + + +---------+ + + | Performing | Address | City/State/Zipcode | Phone Number | | Organization | | | | + +---------+ + + | EXTERNAL LAB | | | | + +---------+ + + Iron and Iron Binding Capacity (03/09/2017 11:28 AM PST) + + + + + + | Component | Value | Ref Range | Performed | Pathologist | | | | | At | Signature | + + + + + + | Iron | 11 (L) | 30 - 180 ug/dL | EXTERNAL | | | | | | LAB | | + + + + + + | TIBC | 320 | 260 - 490 ug/dL | EXTERNAL | | | | | | LAB | | + + + + + + | Iron | 3 (L)Comment: Testing | 15 - 50 % | EXTERNAL | | | Saturation | performed at [facility], [address] | | LAB | | | | [address], | | | | | | [place] [address] | | | | + + + + + + + + | Specimen | + + | Blood specimen | | (specimen) | + + + +---------+ + + | Performing | Address | City/State/Zipcode | Phone Number | | Organization | | | | + +---------+ + + | EXTERNAL LAB | | | | + +---------+ + + Protime INR (03/09/2017 5:03 AM PST) + + + + + + | Component | Value | Ref Range | Performed | Pathologist | | | | | At | Signature | + + + + + + | INR | 1.0Comment: REFERENCE | | EXTERNAL | | | [...] | | | | | performed at [facility];[address] | | | | | | [address];[place], [place] | | | | | | [address] | | | | + + + [...] + +---------+ + + External Lab: CBC (03/09/2017 5:03 AM PST) + + +---- + + + | Component | Value | Ref Range | Performed | Pathologist | | | | | At | Signature | + + +---- + + + | WBC | 23.25 (H) | 3.8 0 - 11.00 | EXTERNAL | | | | | K/u L | LAB | | + + +---- + + + | RED CELL | 3.08 (L) | 3.7 0 - 5.10 | EXTERNAL | | | COUNT | | M/u L | LAB | | + + +---- + + + | Hgb | 6.9 (LL)Comment: RESULT | 11. 3 - 15.5 | EXTERNAL | | | | READ BACK BY:ROGER Blackwell RN | g/d L | LAB | | | | SURG 0602 03/09/17 KB | | | | | |ROGER Blackwell RN SURG 0602 11/29/17 KB | | | | | | | | | | + + +---- + + + | Hematocrit, | 23.4 (L) | 34. 0 - 46.0 % | EXTERNAL | | | POC | | | LAB | | + + +---- + + + | MCV | 76.0 (L) | 80. 0 - 100.0 fl | EXTERNAL | | | | | | LAB | | + + +---- + + + | MCH | 22.4 (L) | 27. 0 - 34.0 pg | EXTERNAL | | | | | | LAB | | + + +---- + + + | MCHC | 29.5 (L) | 32. 0 - 35.5 | EXTERNAL | | | | | g/d L | LAB | | + + +---- + + + | RDW-CV | 63.9 (H) | 37 - 53 fl | EXTERNAL | | | | | | LAB | | + + +---- + + + | Platelet | 375 | 150 - 400 K/uL | EXTERNAL | | | Count | | | LAB | | | Plasma | | | | | + + +---- + + + | MPV | 8.7 | fl | EXTERNAL | | | | | | LAB | | + + +---- + + + | Differentia | MANUAL | | EXTERNAL | | | l Type | | | LAB | | + + +---- + + + | Nucleated | 3 (H) | /10 0WBC | EXTERNAL | | | Red Blood | | | LAB | | | Cells | | | | | + + +---- + + + | Segmented | 55 | % | EXTERNAL | | | Neutrophils | | | LAB | | | Manual | | | | | + + +---- + + + | Lymphocytes | 25 | % | EXTERNAL | | | Manual | | | LAB | | + + +---- + + + | Monocytes | 17 | % | EXTERNAL | | | Manual | | | LAB | | + + +---- + + + | Eosinophils | 3 | % | EXTERNAL | | | Manual | | | LAB | | + + +---- + + + | Absolute | 12.79 (H) | 1.9 0 - 7.40 | EXTERNAL | | | Neutrophils | | K/u L | LAB | | + + +---- + + + | Absolute | 5.81 (H) | 1.0 0 - 3.90 | EXTERNAL | | | Lymphocytes | | K/u L | LAB | | + + +---- + + + | Absolute | 3.95 (H) | 0.0 0 - 0.80 | EXTERNAL | | | Monocytes | | K/u L | LAB | | + + +---- + + + | Absolute | 0.70 (H) | 0.0 0 - 0.50 | EXTERNAL | | | Eosinophils | | K/u L | LAB | | + + +---- + + + | RBC | 2+Comment: | | EXTERNAL | | | Morphology | ANISO3+HYPO2+TARGETNORMA | | LAB | | | | L PLT MORPHTesting | | | | | | performed at [facility], [address] | | | | | | [facility], | | | | | | [place] [address] | | | | | |TARGET | | | | | |NORMAL PLT MORPH | | | | | |Testing performed at [facility], [address] [facility] [place] [address] | | | | | | | | | | + + +---- + + + + + | Specimen | + + | Blood specimen | | (specimen) | + + + +---------+ + + | Performing | Address | City/State/Zipcode | Phone Number | | Organization | | | | + +---------+ + + | EXTERNAL LAB | | | | + +---------+ + + Phosphorus (03/09/2017 5:03 AM PST) + + + + + + | Component | Value | Ref Range | Performed | Pathologist | | | | | At | Signature | + + + + + + | PHOSPHORUS | 2.1 (L)Comment: Testing | 2.3 - 4.8 mg/dL | EXTERNAL | | | | performed at [facility], [address] | | LAB | | | | [address], | | | | | | [place] [address] | | | | + + + + + + + + | Specimen | + + | Blood specimen | | (specimen) | + + + +---------+ + + | Performing | Address | City/State/Zipcode | Phone Number | | Organization | | | | + +---------+ + + | EXTERNAL LAB | | | | + +---------+ + + Magnesium (03/09/2017 5:03 AM PST) + + + + + + | Component | Value | Ref Range | Performed | Pathologist | | | | | At | Signature | + + + + + + | Magnesium | 1.7Comment: Testing | 1.7 - 2.4 mg/dL | EXTERNAL | | | | performed at [facility], [address] | | LAB | | | | [address], | | | | | | [place] [address] | | | | + + + [...] + +---------+ + + Basic Metabolic Panel (03/09/2017 5:03 AM PST) + + + + + + | Component | Value | Ref Range | Performed | Pathologist | | | | | At | Signature | + + + + + + | Na | 139 | 135 - 145 | EXTERNAL | | | | | mmol/L | LAB | | + + + + + + | K | 4.0 | 3.5 - 4.9 | EXTERNAL | | | | | mmol/L | LAB | | + + + + + + | Cl | 105 | 99 - 109 mmol/L | EXTERNAL | | | | | | LAB | | + + + + + + | CO2 | 29 | 23 - 32 mmol/L | EXTERNAL | | | | | | LAB | | + + + + + + | Anion Gap | 9 | 5 - 20 mmol/L | EXTERNAL | | | | | | LAB | | + + + + + + | Glucose, | 86 | 65 - 99 mg/dL | EXTERNAL | | | Fasting | | | LAB | | + + + + + + | BUN | 12 | 8 - 25 mg/dL | EXTERNAL | | | | | | LAB | | + + + + + + | Creatinine | 0.6 | 0.50 - 1.00 | EXTERNAL | | | | | mg/dL | LAB | | + + + + + + | BUN/Creatin | 20 | | EXTERNAL | | | ine Ratio | | | LAB | | + + + + + + | Calcium | 8.5 | 8.5 - 10.5 | EXTERNAL | [...] | | | | | | at [facility], [address] | | | | | | [address], | | | | | | [place] [address] | | | | + + + [...] + +---------+ + + External Lab: CBC (03/08/2017 4:52 AM PST) + + +---- + + + | Component | Value | Ref Range | Performed | Pathologist | | | | | At | Signature | + + +---- + + + | WBC | 27.26 (H) | 3.8 0 - 11.00 | EXTERNAL | | | | | K/u L | LAB | | + + +---- + + + | RED CELL | 3.49 (L) | 3.7 0 - 5.10 | EXTERNAL | | | COUNT | | M/u L | LAB | | + + +---- + + + | Hgb | 7.6 (L) | 11. 3 - 15.5 | EXTERNAL | | | | | g/d L | LAB | | + + +---- + + + | Hematocrit, | 26.2 (L) | 34. 0 - 46.0 % | EXTERNAL | | | POC | | | LAB | | + + +---- + + + | MCV | 75.1 (L) | 80. 0 - 100.0 fl | EXTERNAL | | | | | | LAB | | + + +---- + + + | MCH | 21.9 (L) | 27. 0 - 34.0 pg | EXTERNAL | | | | | | LAB | | + + +---- + + + | MCHC | 29.1 (L) | 32. 0 - 35.5 | EXTERNAL | | | | | g/d L | LAB | | + + +---- + + + | RDW-CV | 62.1 (H) | 37 - 53 fl | EXTERNAL | | | | | | LAB | | + + +---- + + + | Platelet | 452 (H) | 150 - 400 K/uL | EXTERNAL | | | Count | | | LAB | | | Plasma | | | | | + + +---- + + + | MPV | 8.7 | fl | EXTERNAL | | | | | | LAB | | + + +---- + + + | Differentia | MANUAL | | EXTERNAL | | | l Type | | | LAB | | + + +---- + + + | Nucleated | 1 (H) | /10 0WBC | EXTERNAL | | | Red Blood | | | LAB | | | Cells | | | | | + + +---- + + + | Segmented | 68 | % | EXTERNAL | | | Neutrophils | | | LAB | | | Manual | | | | | + + +---- + + + | Lymphocytes | 22 | % | EXTERNAL | | | Manual | | | LAB | | + + +---- + + + | Monocytes | 10 | % | EXTERNAL | | | Manual | | | LAB | | + + +---- + + + | Absolute | 18.53 (H) | 1.9 0 - 7.40 | EXTERNAL | | | Neutrophils | | K/u L | LAB | | + + +---- + + + | Absolute | 6.00 (H) | 1.0 0 - 3.90 | EXTERNAL | | | Lymphocytes | | K/u L | LAB | | + + +---- + + + | Absolute | 2.73 (H) | 0.0 0 - 0.80 | EXTERNAL | | | Monocytes | | K/u L | LAB | | + + +---- + + + | RBC | 2+Comment: | | EXTERNAL | | | Morphology | ANISO2+MICRO2+HYPO2+TARG | | LAB | | | | ETNORMAL PLT | | | | | | MORPHTesting performed | | | | | | at [facility], [address] | | | | | [address], | | | | | | [place] [address] | | | | | |2+ | | | | | |TARGET | | | | | |NORMAL PLT MORPH | | | | | |Testing performed at [facility], [address] [facility], [place] [address] | | | | | | | | | | + + +---- + + + + + | Specimen | + + | Blood specimen | | (specimen) | + + + +---------+ + + | Performing | Address | City/State/Zipcode | Phone Number | | Organization | | | | + +---------+ + + | EXTERNAL LAB | | | | + +---------+ + + Phosphorus (03/08/2017 4:52 AM PST) + + + + + + | Component | Value | Ref Range | Performed | Pathologist | | | | | At | Signature | + + + + + + | PHOSPHORUS | 2.3Comment: Testing | 2.3 - 4.8 mg/dL | EXTERNAL | | | | performed at [facility], [address] | | LAB | | | | [address], | | | | | | [place] [address] | | | | + + + + + + + + | Specimen | + + | Blood specimen | | (specimen) | + + + +---------+ + + | Performing | Address | City/State/Zipcode | Phone Number | | Organization | | | | + +---------+ + + | EXTERNAL LAB | | | | + +---------+ + + Magnesium (03/08/2017 4:52 AM PST) + + + + + + | Component | Value | Ref Range | Performed | Pathologist | | | | | At | Signature | + + + + + + | Magnesium | 2.0Comment: Testing | 1.7 - 2.4 mg/dL | EXTERNAL | | | | performed at [facility], [address] | | LAB | | | | [address], | | | | | | [place] [address] | | | | + + + [...] + +---------+ + + Comprehensive Metabolic Panel (03/08/2017 4:52 AM PST) + + + + + + | Component | Value | Ref Range | Performed | Pathologist | | | | | At | Signature | + + + + + + | Na | 141 | 135 - 145 | EXTERNAL | | | | | mmol/L | LAB | | + + + + + + | K | 3.4 (L) | 3.5 - 4.9 | EXTERNAL | | | | | mmol/L | LAB | | + + + + + + | Cl | 106 | 99 - 109 mmol/L | EXTERNAL | | | | | | LAB | | + + + + + + | CO2 | 26 | 23 - 32 mmol/L | EXTERNAL | | | | | | LAB | | + + + + + + | Anion Gap | 12 | 5 - 20 mmol/L | EXTERNAL | | | | | | LAB | | + + + + + + | Glucose, | 83 | 65 - 99 mg/dL | EXTERNAL | | | Fasting | | | LAB | | + + + + + + | BUN | 16 | 8 - 25 mg/dL | EXTERNAL | | | | | | LAB | | + + + + + + | Creatinine | 0.7 | 0.50 - 1.00 | EXTERNAL | | | | | mg/dL | LAB | | + + + + + + | BUN/Creatin | 23 | | EXTERNAL | | | ine Ratio | | | LAB | | + + + + + + | Calcium | 8.6 | 8.5 - 10.5 | EXTERNAL | | | | | mg/dL | LAB | | + + + + + + | Protein, | 6.4 | 6.3 - 8.2 g/dL | EXTERNAL | | | Total | | | LAB | | + + + + + + | Albumin | 2.4 (L) | 3.3 - 4.8 g/dL | EXTERNAL | | | | | | LAB | | + + + + + + | Globulin | 4.0 | 1.3 - 4.9 g/dL | EXTERNAL [...] + + + + | ALP, | 207 (H) | 35 - 115 U/L | EXTERNAL | | | External | | | LAB | | + + + + + + | AST | 28 | 10 - 45 U/L | EXTERNAL | | | | | | LAB | | + + + + + + | ALT | 37 | 10 - 65 U/L | EXTERNAL [...] [address], | | | | | | [place] [address] | | | | + + + [...] + +---------+ + + PATHOLOGY CONSULT REQUEST (03/07/2017 7:02 PM PST) + + + + + + | Component | Value | Ref Range | Performed | Pathologist | | | | | At | Signature | + + + + + + | Pathologist | Comment: Review of CBC | | EXTERNAL | | | Review 1 | collected 03/07/2017. I | | LAB | | | | agree with the cell | | | | | | counts. The neutrophils | | | | | | show mild left shift | | | | | | without toxic changes. | | | | | | Reactive appearing | | | | | | monocytes are also | | | | | | present. The anemia is | | | | | | hypochromic and | | | | | | microcytic, consistent | | | | | | with iron deficiency | | | | | | anemia. There are no | | | | | | schistocytes or other | | | | | | evidence of peripheral | | | | | | destruction. There is a | | | | | | moderate reticulocyte | | | | | | response, given the | | | | | | degree of anemia. | | | | | | Occasional NRBC's are | | | | | | present. The history of | | | | | | Crohn's disease is | | | | | | noted. Please correlate | | | | | | clinically.Dr. Lim | | | | | | Nakia 03/09/2017 | | | | | | BES/emb Testing | | | | | | performed at [facility] | | | | | | [facility];[place], [place] | | | | | | [id number] | | | | + + + + + + + + | Specimen | + + | | + + + +---------+ + + | Performing | Address | City/State/Zipcode | Phone Number | | Organization | | | | + +---------+ + + | EXTERNAL LAB | | | | + +---------+ + + External Lab: CBC (03/07/2017 7:02 PM PST) + + + + + + | Component | Value | Ref Range | Performed | Pathologist | | | | | At | Signature | + + + + + + | WBC | 25.36 (H) | 3.80 - 11.00 | EXTERNAL | | | | | K/uL | LAB | | + + + + + + | RED CELL | 3.62 (L) | 3.70 - 5.10 | EXTERNAL | | | COUNT | | M/uL | LAB | | + + + + + + | Hgb | 7.8 (L) | 11.3 - 15.5 | EXTERNAL | | | | | g/dL | LAB | | + + + + + + | Hematocrit, | 26.4 (L) | 34.0 - 46.0 % | EXTERNAL | | | POC | | | LAB | | + + + + + + | MCV | 72.9 (L) | 80.0 - 100.0 fl | EXTERNAL | | | | | | LAB | | + + + + + + | MCH | 21.6 (L) | 27.0 - 34.0 pg | EXTERNAL | | | | | | LAB | | + + + + + + | MCHC | 29.6 (L) | 32.0 - 35.5 | EXTERNAL | | | | | g/dL | LAB | | + + + + + + | RDW-CV | 61.3 (H) | 37 - 53 fl | EXTERNAL | | | | | | LAB | | + + + + + + | Platelet | 487 (H) | 150 - 400 K/uL | EXTERNAL | | | Count | | | LAB | | | Plasma | | | | | + + + + + + | MPV | 8.2 | fl | EXTERNAL | | | | | | LAB | | + + + + + + | Differentia | MANUAL | | EXTERNAL | | | l Type | | | LAB | | + + + + + + | Nucleated | 3 (H) | /100WBC | EXTERNAL | | | Red Blood | | | LAB | | | Cells | | | | | + + + + + + | Segmented | 83 | % | EXTERNAL | | | Neutrophils | | | LAB | | | Manual | | | | | + + + + + + | Lymphocytes | 8 | % | EXTERNAL | | | Manual | | | LAB | | + + + + + + | Monocytes | 9 | % | EXTERNAL | | | Manual | | | LAB | | + + + + + + | Absolute | 21.05 (H) | 1.90 - 7.40 | EXTERNAL | | | Neutrophils | | K/uL | LAB | | + + + + + + | Absolute | 2.03 | 1.00 - 3.90 | EXTERNAL | | | Lymphocytes | | K/uL | LAB | | + + + + + + | Absolute | 2.28 (H) | 0.00 - 0.80 | EXTERNAL | | | Monocytes | | K/uL | LAB | | + + + + + + | RBC | 2+Comment: | | EXTERNAL | | | Morphology | ANISO2+MICRO2+HYPO1+TARG | | LAB | | | | ETNORMAL PLT | | | | | | MORPHTesting performed | | | | | | at [facility];[address] [place] [address] | | | | | | Gertrude;[place] [address] | | | | | |HYPO | | | | | |1+ | | | | | |TARGET | | | | | |NORMAL PLT MORPH | | | | | |Testing performed at [facility];[address] [facility] [address] | | | | | | | [...] | | + +---------+ + + Phosphorus (03/07/2017 7:02 PM PST) + + + + + + | Component | Value | Ref Range | Performed | Pathologist | | | | | At | Signature | + + + + + + | PHOSPHORUS | 2.2 (L)Comment: Testing | 2.3 - 4.8 mg/dL | EXTERNAL | | | | performed at [facility];[address] | | LAB | | | | [address];[place], [place] | | | | | | [address] | | | | + + + + + + + + | Specimen | + + | Blood specimen | | (specimen) | + + + +---------+ + + | Performing | Address | City/State/Zipcode | Phone Number | | Organization | | | | + +---------+ + + | EXTERNAL LAB | | | | + +---------+ + + Magnesium (03/07/2017 7:02 PM PST) + + + + + + | Component | Value | Ref Range | Performed | Pathologist | | | | | At | Signature | + + + + + + | Magnesium | 2.2Comment: Testing | 1.7 - 2.4 mg/dL | EXTERNAL | | | | performed at [facility] | | LAB | | | | [facility];[place], [place] | | | | | | [address] | | | | + + + [...] + +---------+ + + Comprehensive Metabolic Panel (03/07/2017 7:02 PM PST) + + + + + + | Component | Value | Ref Range | Performed | Pathologist | | | | | At | Signature | + + + + + + | Na | 144 | 135 - 145 | EXTERNAL | | | | | mmol/L | LAB | | + + + + + + | K | 3.3 (L) | 3.5 - 4.9 | EXTERNAL | | | | | mmol/L | LAB | | + + + + + + | Cl | 108 | 99 - 109 mmol/L | EXTERNAL | | | | | | LAB | | + + + + + + | CO2 | 29 | 23 - 32 mmol/L | EXTERNAL | | | | | | LAB | | + + + + + + | Anion Gap | 10 | 5 - 20 mmol/L | EXTERNAL | | | | | | LAB | | + + + + + + | Glucose, | 108 (H) | 65 - 99 mg/dL | EXTERNAL | | | Fasting | | | LAB | | + + + + + + | BUN | 17 | 8 - 25 mg/dL | EXTERNAL | | | | | | LAB | | + + + + + + | Creatinine | 0.61 | 0.50 - 1.00 | EXTERNAL | | | | | mg/dL | LAB | | + + + + + + | BUN/Creatin | 28 | | EXTERNAL | | | ine Ratio | | | LAB | | + + + + + + | Calcium | 8.0 (L) | 8.5 - 10.5 | EXTERNAL | | | | | mg/dL | LAB | | + + + + + + | Protein, | 6.3 | 6.3 - 8.2 g/dL | EXTERNAL | | | Total | | | LAB | | + + + + + + | Albumin | 2.4 (L) | 3.3 - 4.8 g/dL | [...] + + + + | Bilirubin | 0.3 | 0.1 - 1.5 mg/dL | EXTERNAL | | | Total | | | LAB | | + + + + + + | ALP, | 200 (H) | 35 - 115 U/L | EXTERNAL | | | External | | | LAB | | + + + + + + | AST | 26 | 10 - 45 U/L | EXTERNAL | | | | | | LAB | | + + + + + + | ALT | 33 | 10 - 65 U/L | EXTERNAL [...] | | | | | | at [facility];[address];[place] [address] | | | | + + + + + + + + | Specimen | + + | Blood specimen | | (specimen) | + + + +---------+ + + | Performing | Address | City/State/Zipcode | Phone Number | | Organization | | | | + +---------+ + + | EXTERNAL LAB | | | | + +---------+ + + POC Glucose (03/07/2017 2:24 PM PST) + + + + + + | Component | Value | Ref Range | Performed | Pathologist | | | | | At | Signature | + + + + + + | Glucose, | 142 (H)Comment: Testing | 65 - 99 mg/dL | EXTERNAL | | | Fingerstick | performed at [facility];[address] | | LAB | | | | [address];[place] | | | | | | [address] | | | | + + + [...] | + + | Crohn's disease of large intestine with complication (HCC) Regional enteritis of | | large intestine | + + documented in this encounter Additional Health Concerns + + + + | Infection | Noted Time | Resolved Time | + + + + | Methicillin-resistant Staphylococcus aureus | 03/02/2017 12:00 AM | | | | PDT | | + + + + documented as of this encounter
--- OUTSIDE RECORDS SUMMARY | ~2019-03-09 | XMS | Encounter Summary ---
Demographics + + + | Address | [address] | | | [place] [address] | + + + | Home Phone | | + + + | Preferred Language | Unknown | + + + | Marital Status | | + + + | Baptist Affiliation | Unknown | + + + [...] Team Providers + +------+ + | Care Cuffer Name | Role | Phone | + +------+ + | No, Physician | PCP | Unavailable | + +------+ + Encounter Details +--------+ + + + + | Date | Type | Department | Care Team | Description | +--------+ + + + + | 03/02/ | Orders Only | [facility] | Enrique Bocanegra, | | | 2016 | | GENERAL SURGERY [address] | MD [address] | | | | | [address] | [address] | | | | | [place], [place] | [place] [address] | | | | | [address] | [phone] | | | | | [phone] | | | +--------+ + + + [...] as of this encounter Plan of Treatment +--------+---------+ + + + | Date | Type | Specialty | Care Team | Description | +--------+---------+ + + + | 03/27/ | Office | General Surgery | Severo, | | | 2019 | Visit | | [address] | | | | | | [address] | | | | | | [place] [address] | | | | | | [phone] | | | | | | | | +--------+---------+ + + + documented as of this encounter Visit Diagnoses Not on filedocumented in this encounter Additional Health Concerns + + + + | Infection | Noted Time | Resolved Time | + + + + | Methicillin-resistant Staphylococcus aureus | 03/02/2017 12:00 AM | | | | PDT | | + + + + documented as of this encounter"
--- OUTSIDE RECORDS SUMMARY | ~2019-03-09 | XMS | Encounter Summary ---
Demographics + + + | Address | [address] | | | [place] [address] | + + + | Home Phone | | + + + | Preferred Language | Unknown | + + + | Marital Status | | + + + | Hinduism Affiliation | Unknown | + + + | Race | Unknown | + + + | Ethnic Group | Unknown | + + + Author + + + | Author | [facility] | | | and [place] | + + + | Organization | [facility] | | | [...] Team Providers + +------+ + | Care Car Worker Name | Role | Phone | + +------+ + | No, Physician | PCP | Unavailable | + +------+ + Encounter Details +--------+ + + + + | Date | Type | Department | Care Team | Description | +--------+ + + + + | 11/05/ | Orders Only | [facility] | Conversion | | | 2014 | | [address] | Transaction, | | | | [address] | Provider Unknown | | | | | [place], [place] | [phone] | | | | | [address] | | | | | | [phone] | | | +--------+ + + + [...] 03/27/ | Office | General Surgery | [place], | | | 2019 | Visit | | [address] | | | | | | [address] | | | | | | [place] [address] | | | | | | [phone] | | | | | | | [...]
--- OUTSIDE RECORDS SUMMARY | ~2019-03-09 | XMS | Encounter Summary ---
Demographics + + + | Address | [address] | | | [place] [address] | + + + | Home Phone | | + + + | Preferred Language | Unknown | + + + | Marital Status | | + + + | Advent Affiliation | Unknown | + + + [...] Team Providers + +------+ + | Care Datapower Consultant Name | Role | Phone | + +------+ + PCP | Unavailable | + +------+ + Encounter Details +--------+ + + + + | Date | Type | Department | Care Team | Description | +--------+ + + + + | 08/ | Orders Only | [facility] | M[facility] [place] | | | 2015 | | [address] | Marcial Lawson MD [address] | | [address] | [address] | | | | | [place], [place] | [place] [address] | | | | | [address] | [phone] | | | | | [phone] | | | +--------+ + + + [...]
--- OUTSIDE RECORDS SUMMARY | ~2019-03-09 | XMS | Encounter Summary ---
Demographics + + + | Address | [address] | | | [place] [address] | + + + | Home Phone | | + + + | Preferred Language | Unknown | + + + | Marital Status | | + + + | Advent Affiliation | Unknown | + + + | Race | Unknown | + + + | Ethnic Group | Unknown | + + + Author + + + | Author | [facility] | | | and [place] | + + + | Organization | [facility] | | | [...] Team Providers + +------+ + | Care Patient Intake Coordinator Name | Role | Phone | + +------+ + PCP | Unavailable | + +------+ + Encounter Details +--------+ + + + + | Date | Type | Department | Care Team | Description | +--------+ + + + + | 08/04/ | Hospital | [facility] | Chace Benson | Crohn's disease of | | 2016 - | Encounter | [facility] | MD Alex Steve | large intestine with | | | | CARE FLOOR [address] [place], [place] | complication (HCC) | | 08/07/ | | [address] | [address] | | | 2015 | | [place], [place] | | | | | | [address] | | | | | | [phone] | | | +--------+ + + + [...] + + + | Blood Pressure | 174/81 | 08/08/2015 6:07 PM | | | | | PDT | | + + + + + | Pulse | 84 | 08/08/2015 6:07 PM | | | | | PDT | | + + + + + | Temperature | 36.8 C (98.2 F) | 08/08/2015 6:07 PM | | | | | PDT | | + + + + + | Respiratory Rate | 20 | 08/08/2015 6:07 PM | | | | | PDT | | + + + + + | Oxygen Saturation | - | - | | + + + + + | Inhaled Oxygen | - | - | | | Concentration | | | | + + + + + | Weight | 79.8 kg (175 lb 14.9 | 08/08/2015 6:07 PM | | | | oz) | PDT | | + + + + + | Height | 175.3 cm (5' 9") | 08/08/2015 6:07 PM | | | | | PDT | | + + + + + | Body Mass Index | 25.98 | 08/08/2015 6:07 PM | | | | | PDT | | + + + + + documented in this encounter Discharge Summaries Deanne Henson MD - 08/08/2015 2:35 PM PDT Discharge Summaries by Deanne Henson MD at 08/08/15 7636 Author: Deanne Henson MD Service: Internal Medicine Author Type: Physician Filed: 08/08/15 1441 Date of Service: 08/08/154 Status: Signed Caser In: Deanne Henson MD (Physician) [facility] Service: Hospitalist Physician Discharge Summary Patient ID: Mackenzie Willingham 1955 59 y.o. 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 She presented to [facility]inda [facility] department at [facility] today with complaints of diarrhea, vomiting, and s evere abdominal pain going on for 3 days. For the last couple of days patient has noticed so me blood in the vomiting. According to patient, she has severe, excruciating, diffuse abdomi nal pain, and despite taking morphine and oxycodone at home it has not subsided. Patient als o has had several episodes of watery diarrhea evidently going on for a few days now. Patient has been feeling weak and tired, hence she came to the emergency department of [facility], where she was found to have INR of 12.9. NG tube was passed and return was blood-t inged. She was given 2 units of fresh frozen plasma and 10 mg of vitamin K, and patient was transferred to this hospital as there is no GI backup at [facility]. Hospital Course: The pt admitted for vomiting blood with inr > 12. She took extra coumadin pills. She got ffp, vit K, and tx to [facility]. Iv fluds, iv ppi gtt started. git consulted. Went for egd = gastritis, no active bleed. Resumed coumadin. She got stress steroids, and serial hb. No t x needed. She will f/u coumadin clinic. C/o diarrhea so c. Dif checked +ve. Recent abx us e. Started iv flagyl but does not like po so changed to vanco po x [address] Townsend? At [facility] for colonic vaginal fistula . But does not like him. So wanted another referral. Her H b down to 7.8 but no active bleeding. Past Medical History: Past Medical History Diagnosis Date [...] Procedure: ESOPHAGOGASTRODUODENOSCOPY; Surgeon: Bony Petty MD; Location: [facility] BEDSIDE PROCEDURE; Service: Gastroenterology; Laterality: N/A; Laparotomy N/A 04/23/2014 Procedure: EXPLORATION - LAPAROTOMY; Surgeon: Bogdan Moser DO; Location: [facility] MAIN OR; Service: General; Laterality: N/A; Splenectomy, total N/A 04/23/2014 Procedure: SPLENECTOMY; Surgeon: Bogdan Moser DO; Location: [facility] MAIN OR; Service: General; Laterality: N/A; Esophagogastroduodenoscopy Left 08/06/2015 Procedure: ESOPHAGOGASTRODUODENOSCOPY; Surgeon: Sheng Rios MD; Location: [facility] ENDOSCOPY; Service: Gastroenterology; Laterality: Left; Discharged Condition: Stable for discharge as stated above. Significant Diagnostic Studies: Xr Chest 1 View 08/05/2015 1. Chronic findings, as above, without acute disease. Discharge Vitals: Filed Vitals: 08/07/15 2344 08/08/15 0412 08/08/15 0728 08/08/15 1235 BP: 157/74 164/76 178/76 173/94 Pulse: 75 74 78 82 Temp: 97.9 F (36.6 C) 97.8 F (36.6 C) 97.5 F (36.4 C) 98.3 F (36.8 C) TempSrc: Oral Oral Oral Oral Resp: 22 20 20 20 Height: Weight: SpO2: 95% 95% 92% 92% Discharge Exam: General: CHRONIC ILL LOOKING FEMALE IN BED PALE NAD . Psych: Alert and oriented x 3. Calm, cooperative. Cardiovascular: Regular rate and rhythm, no murmurs, no thrills. Normal PMI. Respiratory: Clear to auscultation, no wheezing or crackles, breathing non labored. Gastrointestinal: Soft, MILD CHRONIC TENDERNESS (NOT NEW), MILD-distended, positive bowel s ounds. Musculoskeletal: No edema in bilateral lower extremities. No joint swelling. Skin: Warm and dry, no rashes. PALE Neck: No JVD, Trachea midline. LABS: Recent Labs Lab 08/08/15 0419 08/07/15 0528 08/06/15 1823 08/06/15 0501 WBC 16.15* 18.65* -- -- 23.00* RBC 3.36* 3.47* -- -- 3.89 HGB 7.8* 8.2* 8.5* < > 9.1* HCT 26.6* 27.5* 29.1* < > 30.7* MCV 79.1* 79.1* -- -- 78.9* MCH 23.2* 23.6* -- -- 23.4* MCHC 29.3* 29.8* -- -- 29.7* RDW 61.7* 62.1* -- -- 63.9* PLT 418* 419* -- -- 436* MPV 8.3 8.3 -- -- 8.1 DIFFTYPE AUTOMATED AUTOMATED -- -- AUTOMATED < > = values in this interval not displayed. Recent Labs Lab 08/07/15 0528 08/06/15214808/06/15 0845 08/06/15 0501 08/05/156 NA -- -- -- 137 133* K 3.8 3.2* 3.9 3.5 2.9* CL -- -- -- 105 98* CO2 -- -- -- 22* 22* BUN -- -- -- 36* 39* CREATININE -- -- -- 1.07* 1.49* PROT -- -- -- 5.9* 6.8 BILITOT -- -- -- 0.8 0.8 ALT -- -- -- 39 56 AST -- -- -- 34 48* GLUF -- -- -- 92 89 No results for input(s): CKTOTAL, TROPONINI, TROPONINT, CKMBINDEX in the last 168 hours. Recent Labs Lab 08/07/1528 08/06/15 0501 PHOS 1.2* 3.0 Recent Labs Lab 08/07/1528 08/06/15214808/06/15 0501 MG 1.7 2.0 1.1* Invalid input(s): ABG Disposition: Home or Self Care Follow up: [facility] [address] [facility] [address] [facility] [id number] Please resume your coumadin therapy services within the next 3 days after discharge. Neel Fernandes MD [address] [facility] [id number] Medication List START taking these medications lactobacillus granules QTY: 30 each Refills: 0 Take 1 packet by mouth 2 (two) times daily. vancomycin 25 mg/mL Soln QTY: 200 Bottle Refills: 1 Commonly known as: VANCOCIN Take 10 mLs by mouth every 6 (six) hours. Indications: Clostridium Difficile Associated Angi rrhea CONTINUE taking these medications lisinopril 20 MG tablet Refills: 0 Commonly known as: ZESTRIL Take 1 tablet by mouth 2 (two) times daily. LORazepam 0.5 MG tablet Refills: 0 Commonly known as: ATIVAN metoprolol 25 MG tablet Refills: 0 Commonly known as: LOPRESSOR Take 2 tablets by mouth 2 (two) times daily. morphine 15 MG tablet QTY: 150 tablet [...] tablet Refills: 0 Commonly known as: PHENERGAN warfarin 6 MG tablet Refills: 0 Commonly known as: COUMADIN Where to Get Your Medications These are the prescriptions that you need to cloth picker. You may get the following medications from any pharmacy - lactobacillus granules - vancomycin 25 mg/mL Paige Henson MD 08/08/2015 2:35 PM Discharge took 39 minutes, to include final examination, discussion of admission, and prep aration of prescriptions, instructions for ongoing care, follow up and dictation of summary. documented in this en counter Medications at Time of Discharge + + [...] Progress Notes Conversion Transaction, Provider Unknown - 08/08/2015 2:13 PM PDTFormatting of this note m ight be different from the original. Case Management by Linh Perez RN at 08/08/151412 Author: Linh Perez RN Service: (none) Author Type: Registered Nurse Filed: 08/08/156 Date of Service: 08/08/151412 Status: Signed Caser In: Linh Perez RN (Registered Nurse) Met with pt regarding discharge planning. Pt states she is followed for her coumadin therap hy with [facility]. Pt states she will resume her coumadin servi krystyna with them upon d/c. No other needs at this time. KaylynGhulam Perez RN, CM. [phone] Deanne Galaviz MD - 08/07/2015 10:12 AM PDTFormatting of this note might be different from the or iginal. Progress Notes by Deanne Henson MD at 08/07/15 1012 Author: Deanne Henson MD Service: Internal Medicine Author Type: Physician Filed: 08/07/15 1017 Date of Service: 08/07/15 1012 Status: Signed Caser In: Deanne Henson MD (Physician) [facility] Service: Hospitalist Progress Note Hospital Day: LOS: 2 days SUBJECTIVE C/O BACK SPASMS HPI:COPIED, PASTED The patient is 59 y.o. 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 She presented to linda rgency department at [facility] today with complaints of diarrhea, vomiting, and s evere abdominal pain going on for 3 days. For the last couple of days patient has noticed so me blood in the vomiting. According to patient, she has severe, excruciating, diffuse abdomi nal pain, and despite taking morphine and oxycodone at home it has not subsided. Patient als o has had several episodes of watery diarrhea evidently going on for a few days now. Patient has been feeling weak and tired, hence she came to the emergency department of [facility], where she was found to have INR of 12.9. NG tube was passed and return was blood-t inged. She was given 2 units of fresh frozen plasma and 10 mg of vitamin K, and patient was transferred to this hospital as there is no GI backup at [facility]. Scheduled Medications baclofen 10 mg Oral TID lactobacillus 1 packet Oral BID metoprolol 25 mg Oral BID metronidazole 500 mg Intravenous Q8H morphine 15 mg Oral 5x Daily pantoprazole 40 mg Oral BID AC [START ON 08/08/2015] predniSONE 15 mg Oral Daily with breakfast sulfamethoxazole-trimethoprim 1 tablet Oral 2 times per day warfarin 6 mg Oral Daily Continuous Infusions lactated ringers 110 mL/hr at 08/07/15 0143 PRN Medications acetaminophen OR acetaminophen, LORazepam, LORazepam, magnesium sulfate OR magnesiu m sulfate OR magnesium sulfate, morphine OR morphine OR morphine, potassium chlo ride OR potassium chloride OR potassium chloride, promethazine OR promethazine * *OR promethazine, zolpidem OBJECTIVE Vital Signs: BP 136/63 mmHg | Pulse 96 | Temp(Src) 98.3 F (36.8 C) (Oral) | Resp 22 | Ht 1.753 m (5' 9") | Wt 79.8 kg (175 lb 14.8 oz) | BMI 25.97 kg/m2 | SpO2 91% | ? No Patient Vitals for the past 24 hrs: BP Temp Temp src Pulse Resp SpO2 Height 08/07/15 0846 136/63 mmHg 98.3 F (36.8 C) Oral 96 22 91 % - 08/07/15 0430 - - - - - - 1.753 m (5' 9") 08/07/15 0422 127/58 mmHg 98.3 F (36.8 C) Oral 84 17 98 % - 08/06/15 2323 133/62 mmHg 97.8 F (36.6 C) Oral 86 18 91 % - 08/06/15 2135 124/58 mmHg - - 92 - - - 08/06/15 1940 131/60 mmHg 98.1 F (36.7 C) Oral 98 20 93 % - 08/06/15 1525 107/53 mmHg 98.6 F (37 C) Oral 94 16 95 % - 08/06/15 1059 101/49 mmHg 98.9 F (37.2 C) Oral 94 16 95 % - Intake/Output Summary (Last 24 hours) at 08/07/15 1012 Last data filed at 08/07/15 0528 Gross per 24 hour Intake 3370 ml Output 900 ml Net 2470 ml Physical Exam: Constitutional: ANXIOUS FEMALE IN BED CHRONIC ILL LOOKING WAS LOOKED COMFORTABLE PRIOR TO M E COMING IN AND WHEN I ENTERED CRYING IN PAIN!!!!!! HEENT: Neck supple, no JVD, non icteric sclera. Cardiovascular: Normal rate, regular rhythm, normal heart sounds with S1 and S2, Exam re veals no gallop and no friction rub. No murmur heard. Pulmonary/Chest: Effort normal and breath sounds normal. No stridor. No respiratory distres s. no wheezes. no rales. exhibits no tenderness. Abdominal: Soft. Bowel sounds are normal. exhibits MILD distension and no palpable mass. Th ere is no tenderness. There is no rebound and no guarding. Extremeties/Musculoskeletal: Normal range of motion.exhibits no tenderness. exhibits no ed anabel. Neurological: Alert and oriented to person, place, and time. NON FOCAL Skin: Skin is warm and dry. t. DATA Recent Labs Lab 08/07/15 0528 08/06/15 1823 08/06/15 1205 08/06/15 0501 08/05/15 2036 WBC 18.65* -- -- 23.00* -- 28.83* RBC 3.47* -- -- 3.89 -- 4.26 HGB 8.2* 8.5* 8.5* 9.1* < > 10.3* HCT 27.5* 29.1* 28.9* 30.7* < > 33.2* MCV 79.1* -- -- 78.9* -- 77.9* MCH 23.6* -- -- 23.4* -- 24.1* MCHC 29.8* -- -- 29.7* -- 30.9* RDW 62.1* -- -- 63.9* -- 61.3* PLT 419* -- -- 436* -- 445* MPV 8.3 -- -- 8.1 -- 8.6 DIFFTYPE AUTOMATED -- -- AUTOMATED -- MANUAL < > = values in this interval not displayed. Recent Labs Lab 08/07/1552708/06/15214808/06/1584408/06/1550008/05/152035 NA -- -- -- 137 133* K 3.8 3.2* 3.9 3.5 2.9* CL -- -- -- 105 98* CO2 -- -- -- 22* 22* BUN -- -- -- 36* 39* CREATININE -- -- -- 1.07* 1.49* PROT -- -- -- 5.9* 6.8 BILITOT -- -- -- 0.8 0.8 ALT -- -- -- 39 56 AST -- -- -- 34 48* GLUF -- -- -- 92 89 No results for input(s): CKTOTAL, TROPONINI, TROPONINT, CKMBINDEX in the last 168 hours. Recent Labs Lab 08/07/1552708/06/15 0501 PHOS 1.2* 3.0 Recent Labs Lab 08/07/1552708/06/15214808/06/15 050 MG 1.7 2.0 1.1* Invalid input(s): ABG No results for input(s): CALCIUM in the last 168 hours. Recent Labs Lab 08/06/1550008/05/152035 INR 1.2 1.3 Xr Chest 1 View 08/05/2015 1. Chronic findings, as above, without acute disease. 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 Resumed coumadin given Hx of dvt's She said she took 2 extra pills of coumadin (6 mg tablets). Total 18 mg. S/p EGD 08/05 = gastritis no bleeding. Change to po ppi. serial Hb. tx for < 8 No bleeding since admit C dif +ve, was on abx outpt for uti's, levaquin. C. Dif is NOT hospital acquired. She had diarrhea prior Started iv flagyl, but does not want po flagyl , prefers vanco.. Mentions seeing dr Townsend at [facility] for fistula b/w vagina, colon. Get records. Her u/a noted. Bactrim po. The plan has explained in detail to the patient , all questions were answered.All data was reviewed. Disposition: home Code Status: Full Code Deanne Henson MD 08/07/2015 10:12 AM onversion Transactio n, Provider Unknown - 08/06/2015 9:25 PM PDT Nurse Progress Note by Celsa Del Castillo RN at 08/06/152124 Author: Celsa Del Castillo RN Service: (none) Author Type: Registered Nurse Filed: 08/07/15 0644 Date of Service: 08/06/152124 Status: Addendum Caser In: Celsa Del Castillo RN (Registered Nurse) Related Notes: Original Note by Celsa Del Castillo RN (Registered Nurse) filed at 08/06/15 2 127 Cdiff sample collected per the MD placed order. Sample resulted positive for GDH antigen, b ut waiting for toxin detection. Will keep the patient in Contact Enteric precautions until t he MD decides treatment course. Celsa Del Castillo RN 9:26 PM 08/06/2015 onver roshan Transaction, Provider Unknown - 08/06/2015 4:22 PM PDT Case Management by LEVI Gallardo at 08/06/15 1622 Author: LEVI Gallardo Service: (none) Author Type: Geophysical Laboratory Director Filed: 08/06/15 1624 Date of Service: 08/06/15 1622 Status: Signed Caser In: LEVI Gallardo (Geophysical Laboratory Director) 08/06/15 1600 Discharge Planning Evaluation Admitting Diagnosis Upper GI Bleed Readmission No Living Arrangements Spouse/significant other Support Systems Spouse/significant other Independent with ADL's Yes Independent with Mobility Yes Mental Status Oriented Anticipated Discharge Plan Post Acute Care Needs None at this time Resources Financial concerns No Transportation issues No Patient/Family concerns No Prescription Plan Yes Anticipated Disposition Facility Type Home [facility] [employer] met with Pt and discussed discharge planning, planning to return home when medically re ej. Pt is a 59 y.o. female here with Upper GI Bleed. Pt drives and is independent and active with all ADLs and IADLs. Patient's PCP is: Neel Fernandes Patient's insurance: Medicare Coverage concerns: None Medication coverage/concerns: None Community resources utilized / needed: None Assistance in transportation: None Identification of any specific education / training: None Barriers to Discharge / Alternative housing needed: None Anticipated DCP: Home [facility] [employer] [phone] cell Deanne Galaviz MD - 08/06/2015 12:58 PM PDTFormatting of this note might be different from the or iginal. Progress Notes by Deanne Henson MD at 08/06/15 1178 Author: Deanne Henson MD Service: Internal Medicine Author Type: Physician Filed: 08/06/15 1306 Date of Service: 08/06/15 1258 Status: Addendum Caser In: Deanne Henson MD (Physician) Related Notes: Original Note by Deanne Henson MD (Physician) filed at 08/06/15 1304 [facility] Service: Hospitalist Progress Note Hospital Day: LOS: 1 day SUBJECTIVE C/O LIQUID STOOL, WANTS PAIN MEDS GOING INTO WITHDRAWALS. HPI:COPIED, PASTED The patient is 59 y.o. 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 She presented to linda [facility]gency department at [facility] today with complaints of diarrhea, vomiting, and s evere abdominal pain going on for 3 days. For the last couple of days patient has noticed so me blood in the vomiting. According to patient, she has severe, excruciating, diffuse abdomi nal pain, and despite taking morphine and oxycodone at home it has not subsided. Patient als o has had several episodes of watery diarrhea evidently going on for a few days now. Patient has been feeling weak and tired, hence she came to the emergency department of [facility], where she was found to have INR of 12.9. NG tube was passed and return was blood-t inged. She was given 2 units of fresh frozen plasma and 10 mg of vitamin K, and patient was transferred to this hospital as there is no GI backup at [facility]. Scheduled Medications hydrocortisone sodium succinate PF 50 mg Intravenous Q6H metoprolol 5 mg Intravenous Q8H Continuous Infusions lactated ringers 110 mL/hr at 08/06/15 1158 pantoprazole 8 mg/hr (08/06/15 1157) PRN Medications acetaminophen OR acetaminophen, LORazepam, magnesium sulfate OR magnesium sulfate * *OR magnesium sulfate, morphine OR morphine OR morphine, potassium chloride OR potassium chloride OR potassium chloride, promethazine OR promethazine OR prome thazine, zolpidem OBJECTIVE Vital Signs: BP 101/49 mmHg | Pulse 94 | Temp(Src) 98.9 F (37.2 C) (Oral) | Resp 16 | Ht 1.753 m (5' 9") | Wt 79.8 kg (175 lb 14.8 oz) | BMI 25.97 kg/m2 | SpO2 95% | ? No Patient Vitals for the past 24 hrs: BP Temp Temp src Pulse Resp SpO2 Height Weight 08/06/15 1059 101/49 mmHg 98.9 F (37.2 C) Oral 94 16 95 % - - 08/06/15 0715 101/53 mmHg 98.3 F (36.8 C) Oral 92 16 96 % - - 08/06/15 0430 - - - - - - 1.753 m (5' 9") 79.8 kg (175 lb 14.8 oz) 08/06/15 0340 103/50 mmHg 99.4 F (37.4 C) Oral 99 - 94 % - - 08/06/15 0200 100/53 mmHg - - 96 - 97 % - - 08/06/15 0003 103/54 mmHg 99.6 F (37.6 C) Oral 99 18 92 % - - 08/05/15 2230 107/51 mmHg - - 102 - - - - 08/05/15 2215 107/55 mmHg - - 100 - - - - 08/05/15 2200 103/53 mmHg - - 100 - - - - 08/05/15 2145 104/50 mmHg - - 100 - - - - 08/05/15 2130 105/49 mmHg - - 100 - 94 % - - 08/05/15 2115 115/54 mmHg - - 100 - 93 % - - 08/05/15 2100 112/53 mmHg - - 100 - 96 % - - 08/05/15 2045 122/57 mmHg - - 106 - 94 % - - 08/05/15 1949 119/55 mmHg - - - - 96 % - - 08/05/15 1854 126/59 mmHg 100 F (37.8 C) Oral 105 20 97 % 1.753 m (5' 9") 79.516 kg (17 5 lb 4.8 oz) Intake/Output Summary (Last 24 hours) at 08/06/15 1258 Last data filed at 08/06/15 0510 Gross per 24 hour Intake 1138 ml Output 450 ml Net 688 ml Physical Exam: Constitutional: ANXIOUS FEMALE IN BED CHRONIC ILL LOOKING NO DISTRESS HEENT: Neck supple, no JVD, non icteric sclera. Cardiovascular: Normal rate, regular rhythm, normal heart sounds with S1 and S2, Exam re veals no gallop and no friction rub. No murmur heard. Pulmonary/Chest: Effort normal and breath sounds normal. No stridor. No respiratory distres s. no wheezes. no rales. exhibits no tenderness. Abdominal: Soft. Bowel sounds are normal. exhibits MILD distension and no palpable mass. Th ere is no tenderness. There is no rebound and no guarding. Extremeties/Musculoskeletal: Normal range of motion.exhibits no tenderness. exhibits no ed anabel. Neurological: Alert and oriented to person, place, and time. Skin: Skin is warm and dry. t. DATA Recent Labs Lab 08/06/15 1205 08/06/15 0501 08/06/15 0004 08/05/152035 WBC -- 23.00* -- 28.83* RBC -- 3.89 -- 4.26 HGB 8.5* 9.1* 9.6* 10.3* HCT 28.9* 30.7* 32.0* 33.2* MCV -- 78.9* -- 77.9* MCH -- 23.4* -- 24.1* MCHC -- 29.7* -- 30.9* RDW -- 63.9* -- 61.3* PLT -- 436* -- 445* MPV -- 8.1 -- 8.6 DIFFTYPE -- AUTOMATED -- MANUAL Recent Labs Lab 08/06/15 0845 08/06/15 0501 08/05/152035 NA -- 137 133* K 3.9 3.5 2.9* CL -- 105 98* CO2 -- 22* 22* BUN -- 36* 39* CREATININE -- 1.07* 1.49* PROT -- 5.9* 6.8 BILITOT -- 0.8 0.8 ALT -- 39 56 AST -- 34 48* GLUF -- 92 89 No results for input(s): CKTOTAL, TROPONINI, TROPONINT, CKMBINDEX in the last 168 hours. Recent Labs Lab 08/06/15 0501 PHOS 3.0 Recent Labs Lab 08/06/15 0501 MG 1.1* Invalid input(s): ABG No results for input(s): CALCIUM in the last 168 hours. Recent Labs Lab 08/06/15 0501 08/05/152035 INR 1.2 1.3 Xr Chest 1 View 08/05/2015 1. Chronic findings, as above, without acute disease. 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 Will need to resume once cleared by git. Hx of dvt's On iv PPI gtt. serial Hb. tx for < 8 Await git input consulted already. She said she took 2 extra pills of coumadin (6 mg tablets). Total 18 mg. C. Dif given hx of abx use for recurrent uti's. Mentions seeing dr Townsend at [facility] for fistula b/w vagina, colon. Get records. Her u/a noted. Iv rocephin for now. The plan has explained in detail to the patient , all questions were answered.All data was reviewed. Disposition: home Code Status: Full Code Deanne Henson MD 08/06/2015 12:58 PM onversion Transactio n, Provider Unknown - 08/06/2015 12:46 AM PDT Progress Notes by Hamilton Drummond RPH at 08/06/1545 Author: Hamilton Drummond RPH Service: (none) Author Type: Pharmacist Filed: 08/06/1545 Date of Service: 08/06/1545 Status: Signed Caser In: Hamilton Drummond RPH (Pharmacist) Note ccl 45.9ml/min meds reviewed Pharmacy will follow rdc [id number] docume nted in this encounter Plan of Treatment +--------+---------+ + + + | Date | Type | Specialty | Care Team | Description | +--------+---------+ + + + | 03/27/ | Office | General Surgery | [place], | | | 2019 | Visit | | [address] | | | | | | [address] | | | | | | [place] [address] | | | | | | [phone] | | | | | | | | +--------+---------+ + + + documented as of this encounter Procedures + +--------+ + + + | Procedure Name | Priori | Date/Time | Associated Diagnosis | Comments | | | ty | | | | + +--------+ + + + | EXTERNAL LAB: RAPHAEL | Routin | 08/08/2015 | | Results for this | | | e | 4:19 AM | | procedure are in the | | | | PDT | | results section. | + +--------+ + + + | PROTIME INR | Routin | 08/08/2015 | | Results for this | | | e | 4:19 AM | | procedure are in the | | | | PDT | | results section. | + +--------+ + + + | EXTERNAL LAB: CBC | Routin | 08/07/2015 | | Results for this | | | e | 5:28 AM | | procedure are in the | | | | PDT | | results section. | + +--------+ + + + | POTASSIUM | Routin | 08/07/2015 | | Results for this | | | e | 5:28 AM | | procedure are in the | | | | PDT | | results section. | + +--------+ + + + | PHOSPHORUS | Routin | 08/07/2015 | | Results for this | | | e | 5:28 AM | | procedure are in the | | | | PDT | | results section. | + +--------+ + + + | MAGNESIUM | Routin | 08/07/2015 | | Results for this | | | e | 5:28 AM | | procedure are in the | | | | PDT | | results section. | + +--------+ + + + | POTASSIUM | Routin | 08/06/2015 | | Results for this | | | e | 9:49 PM | | procedure are in the | | | | PDT | | results section. | + +--------+ + + + | MAGNESIUM | Routin | 08/06/2015 | | Results for this | | | e | 9:49 PM | | procedure are in the | | | | PDT | | results section. | + +--------+ + + + | HISTORICAL | Timed | 08/06/2015 | | Results for this | | MICROBIOLOGY RESULT | | 7:34 PM | | procedure are in the | | | | PDT | | results section. | + +--------+ + + + | HISTORICAL | Routin | 08/06/2015 | | Results for this | | MICROBIOLOGY RESULT | e | 7:34 PM | | procedure are in the | | | | PDT | | results section. | + +--------+ + + + | HEMOGLOBIN AND | Routin | 08/06/2015 | | Results for this | | HEMATOCRIT | e | 6:23 PM | | procedure are in the | | | | PDT | | results section. | + +--------+ + + + | HEMOGLOBIN AND | Routin | 08/06/2015 | | Results for this | | HEMATOCRIT | e | 12:05 PM | | procedure are in the | | | | PDT | | results section. | + +--------+ + + + | POTASSIUM | Routin | 08/06/2015 | | Results for this | | | e | 8:45 AM | | procedure are in the | | | | PDT | | results section. | + +--------+ + + + | EXTERNAL LAB: CBC | Routin | 08/06/2015 | | Results for this | | | e | 5:01 AM | | procedure are in the | | | | PDT | | results section. | + +--------+ + + + | PROTIME INR | Routin | 08/06/2015 | | Results for this | | | e | 5:01 AM | | procedure are in the | | | | PDT | | results section. | + +--------+ + + + | PHOSPHORUS | Routin | 08/06/2015 | | Results for this | | | e | 5:01 AM | | procedure are in the | | | | PDT | | results section. | + +--------+ + + + | MAGNESIUM | Routin | 08/06/2015 | | Results for this | | | e | 5:01 AM | | procedure are in the | | | | PDT | | results section. | + +--------+ + + + | COMPREHENSIVE | Routin | 08/06/2015 | | Results for this | | METABOLIC PANEL | e | 5:01 AM | | procedure are in the | | | | PDT | | results section. | + +--------+ + + + | HEMOGLOBIN AND | Routin | 08/06/2015 | | Results for this | | HEMATOCRIT | e | 12:04 AM | | procedure are in the | | | | PDT | | results section. | + +--------+ + + + | XR CHEST 1 VIEW | Routin | 08/05/2015 | | Results for this | | | e | 9:27 PM | | procedure are in the | | | | PDT | | results section. | + +--------+ + + + | URINALYSIS WITH | Routin | 08/05/2015 | | Results for this | | MICROSCOPIC IF | e | 9:22 PM | | procedure are in the | | INDICATED | | PDT | | results section. | + +--------+ + + + | URINALYSIS, | Routin | 08/05/2015 | | Results for this | | MICROSCOPIC ONLY | e | 9:22 PM | | procedure are in the | | | | PDT | | results section. | + +--------+ + + + | EXTERNAL LAB: CBC | Routin | 08/05/2015 | | Results for this | | | e | 8:36 PM | | procedure are in the | | | | PDT | | results section. | + +--------+ + + + | PROTIME INR | Routin | 08/05/2015 | | Results for this | | | e | 8:36 PM | | procedure are in the | | | | PDT | | results section. | + +--------+ + + + | TYPE AND SCREEN | Routin | 08/05/2015 | | Results for this | | | e | 8:36 PM | | procedure are in the | | | | PDT | | results section. | + +--------+ + + + | COMPREHENSIVE | Routin | 08/05/2015 | | Results for this | | METABOLIC PANEL | e | 8:36 PM | | procedure are in the | | | | PDT | | results section. | + +--------+ + + + documented in this encounter Results Protime INR (08/08/2015 4:19 AM PDT) + + + + + [...] | | | | performed at [facility] [place] | | | | | | [address];[place], [place] | | | | | | [address] | | | | + + + [...] + +---------+ + + External Lab: CBC (08/08/2015 4:19 AM PDT) + + +---- + + + | Component | Value | Ref Range | Performed | Pathologist | | | | | At | Signature | + + +---- + + + | WBC | 16.15 (H)Comment: | 3.8 0 - 11.00 | EXTERNAL | | | | Testing performed at | K/u L | LAB | | | | [facility], [address] | | | | | | [place] | | | | | | [address] | | | | + + +---- + + + | RED CELL | 3.36 (L)Comment: Testing | 3.7 0 - 5.10 | EXTERNAL | | | COUNT | performed at [facility], [address] | [address] | LAB | | | | [address] [place], | | | | | | [place] [address] | | | | + + +---- + + + | Hgb | 7.8 (L)Comment: Testing | 11. 3 - 15.5 | EXTERNAL | | | | performed at [facility], [address] | g/d L | LAB | | | | [address] [place], | | | | | | [place] [address] | | | | + + +---- + + + | Hematocrit, | 26.6 (L)Comment: Testing | 34. 0 - 46.0 % | EXTERNAL | | | POC | performed at [facility], [address] | | LAB | | | | [address] [place], | | | | | | [place] [address] | | | | + + +---- + + + | MCV | 79.1 (L)Comment: Testing | 80. 0 - 100.0 fl | EXTERNAL | | | | performed at [facility], [address] | | LAB | | | | [place], | | | | | | [place] [address] | | | | + + +---- + + + | MCH | 23.2 (L)Comment: Testing | 27. 0 - 34.0 pg | EXTERNAL | | | | performed at [facility], [address] | | LAB | | | | [address] [place], | | | | | | [place] [address] | | | | + + +---- + + + | MCHC | 29.3 (L)Comment: Testing | 32. 0 - 35.5 | EXTERNAL | | | | performed at [facility], [address] | g/d L | LAB | | | | [address] [place], | | | | | | [place] [address] | | | | + + +---- + + + | RDW-CV | 61.7 (H)Comment: Testing | 37 - 53 fl | EXTERNAL | | | | performed at [facility], [address] | | LAB | | | | [address] [place], | | | | | | [place] [address] | | | | + + +---- + + + | Platelet | 418 (H)Comment: Testing | 150 - 400 K/uL | EXTERNAL | | | Count | performed at [facility], [address] | | LAB | | | Plasma | [address] [place], | | | | | | [place] [address] | | | | + + +---- + + + | MPV | 8.3Comment: Testing | fl | EXTERNAL | | | | performed at [facility], [address] | | LAB | | | | [address] [place], | | | | | | [place] [address] | | | | + + +---- + + + | Differentia | AUTOMATEDComment: | | EXTERNAL | | | l Type | Testing performed at | | LAB | | | | [facility], [address] | | | | | | [place] | | | | | | [address] | | | | + + +---- + + + | % Segmented | 59.50Comment: Testing | % | EXTERNAL | | | | performed at [facility], [address] | | LAB | | | Neutrophils | [address] [place], | | | | | | [place] [address] | | | | + + +---- + + + | % | 29.26Comment: Testing | % | EXTERNAL | | | Lymphocytes | performed at [facility], [address] | | LAB | | | | [address] [place], | | | | | | [place] [address] | | | | + + +---- + + + | % Monocytes | 9.64Comment: Testing | % | EXTERNAL | | | | performed at [facility], [address] | | LAB | | | | [address] [place], | | | | | | [place] [address] | | | | + + +---- + + + | % | 0.54Comment: Testing | % | EXTERNAL | | | Eosinophils | performed at [facility], [address] | | LAB | | | | [address], | | | | | | [place] [address] | | | | + + +---- + + + | % Basophils | 1.06Comment: Testing | % | EXTERNAL | | | | performed at [facility], [address] | | LAB | | | | [address], | | | | | | [place] [address] | | | | + + +---- + + + | Absolute | 9.61 (H)Comment: Testing | 1.9 0 - 7.40 | EXTERNAL | | | Segmented | performed at [facility], [address] | [address] | LAB | | | Neutrophils | [address] [place], | | | | | | [place] [address] | | | | + + +---- + + + | Absolute | 4.73 (H)Comment: Testing | 1.0 0 - 3.90 | EXTERNAL | | | Lymphocytes | performed at [facility], [address] | [address] | LAB | | | | [address] [place], | | | | | | [place] [address] | | | | + + +---- + + + | Absolute | 1.56 (H)Comment: Testing | 0.0 0 - 0.80 | EXTERNAL | | | Monocytes | performed at [facility], [address] | [address] | LAB | | | | [address] [place], | | | | | | [place] [address] | | | | + + +---- + + + | Absolute | 0.09Comment: Testing | 0.0 0 - 0.50 | EXTERNAL | | | Eosinophils | performed at [facility], [address] | K/[address] | LAB | | | | [address] [place], | | | | | | [place] [address] | | | | + + +---- + + + | Absolute | 0.17 (H)Comment: Testing | 0.0 0 - 0.10 | EXTERNAL | | | Basophils | performed at [facility], [address] | [address] | LAB | | | | [address] [facility], | | | | | | [place] [address] | | | | + + +---- + + + | RBC | 2+Comment: | | EXTERNAL | | | Morphology | ANISO1+HYPO1+MICRO2+TARG | | LAB | | | | ETNORMAL PLT | | | | | | MORPHTesting performed | | | | | | at [facility], [facility] [address] | | | | | | [facility], | | | | | | [place] [address] | | | | | |2+ | | | | | |TARGET | | | | | |NORMAL PLT MORPH | | | | | |Testing performed at [facility], [facility] [address] [facility], [place] [address] | | | | | | | | | | + + +---- + + + | Differentia | SLIDE SCANNED, AGREES | | EXTERNAL | | | l Comments | WITH AUTOMATED | | LAB | | | | RESULTS.Comment: Testing | | | | | | performed at [facility], [facility] | | | | | | [address], | | | | | | [place] [address] | | | | + + +---- [...] + +---------+ + + External Lab: CBC (08/07/2015 5:28 AM PDT) + + +---- + + + | Component | Value | Ref Range | Performed | Pathologist | | | | | At | Signature | + + +---- + + + | WBC | 18.65 (H)Comment: | 3.8 0 - 11.00 | EXTERNAL | | | | Testing performed at | K/u L | LAB | | | | [facility], [address] [facility] | | | | | | [place] | | | | | | [address] | | | | + + +---- + + + | RED CELL | 3.47 (L)Comment: Testing | 3.7 0 - 5.10 | EXTERNAL | | | COUNT | performed at [facility], [address] | [address] | LAB | | | | [address] [place], | | | | | | [place] [address] | | | | + + +---- + + + | Hgb | 8.2 (L)Comment: Testing | 11. 3 - 15.5 | EXTERNAL | | | | performed at [facility], [address] | g/d L | LAB | | | | [address] [place], | | | | | | [place] [address] | | | | + + +---- + + + | Hematocrit, | 27.5 (L)Comment: Testing | 34. 0 - 46.0 % | EXTERNAL | | | POC | performed at [facility], [address] | | LAB | | | | [address] [place], | | | | | | [place] [address] | | | | + + +---- + + + | MCV | 79.1 (L)Comment: Testing | 80. 0 - 100.0 fl | EXTERNAL | | | | performed at [facility], [address] | | LAB | | | | [address] [place], | | | | | | [place] [address] | | | | + + +---- + + + | MCH | 23.6 (L)Comment: Testing | 27. 0 - 34.0 pg | EXTERNAL | | | | performed at [facility], [address] | | LAB | | | | [address] [place], | | | | | | [place] [address] | | | | + + +---- + + + | MCHC | 29.8 (L)Comment: Testing | 32. 0 - 35.5 | EXTERNAL | | | | performed at [facility], [address] | g/d L | LAB | | | | [address] [place], | | | | | | [place] [address] | | | | + + +---- + + + | RDW-CV | 62.1 (H)Comment: Testing | 37 - 53 fl | EXTERNAL | | | | performed at [facility], [address] | | LAB | | | | [address] [place], | | | | | | [place] [address] | | | | + + +---- + + + | Platelet | 419 (H)Comment: Testing | 150 - 400 K/uL | EXTERNAL | | | Count | performed at [facility], [address] | | LAB | | | Plasma | [address] [place], | | | | | | [place] [address] | | | | + + +---- + + + | MPV | 8.3Comment: Testing | fl | EXTERNAL | | | | performed at [facility], [address] | | LAB | | | | [address], | | | | | | [place] [address] | | | | + + +---- + + + | Differentia | AUTOMATEDComment: | | EXTERNAL | | | l Type | Testing performed at | | LAB | | | | [facility], [address] | | | | | | [place] | | | | | | [address] | | | | + + +---- + + + | % Segmented | 82.12Comment: Testing | % | EXTERNAL | | | | performed at [facility], [address] | | LAB | | | Neutrophils | [address] [place], | | | | | | [place] [address] | | | | + + +---- + + + | % | 10.53Comment: Testing | % | EXTERNAL | | | Lymphocytes | performed at [facility], [address] | | LAB | | | | [place] [place], | | | | | | [place] [address] | | | | + + +---- + + + | % Monocytes | 6.70Comment: Testing | % | EXTERNAL | | | | performed at [facility], [address] | | LAB | | | | [address] [place], | | | | | | [place] [address] | | | | + + +---- + + + | % | 0.05Comment: Testing | % | EXTERNAL | | | Eosinophils | performed at [facility], [address] | | LAB | | | | [address] [place], | | | | | | [place] [address] | | | | + + +---- + + + | % Basophils | 0.60Comment: Testing | % | EXTERNAL | | | | performed at [facility], [address] | | LAB | | | | [address], | | | | | | [place] [address] | | | | + + +---- + + + | Absolute | 15.31 (H)Comment: | 1.9 0 - 7.40 | EXTERNAL | | | Segmented | Testing performed at | K/u L | LAB | | | Neutrophils | [facility], [address] | | | | | | [place] | | | | | | [address] | | | | + + +---- + + + | Absolute | 1.96Comment: Testing | 1.0 0 - 3.90 | EXTERNAL | | | Lymphocytes | performed at [facility], [address] | K/[address] | LAB | | | | [address] [place], | | | | | | [place] [address] | | | | + + +---- + + + | Absolute | 1.25 (H)Comment: Testing | 0.0 0 - 0.80 | EXTERNAL | | | Monocytes | performed at [facility], [address] | [address] | LAB | | | | [address] [place], | | | | | | [place] [address] | | | | + + +---- + + + | Absolute | 0.01Comment: Testing | 0.0 0 - 0.50 | EXTERNAL | | | Eosinophils | performed at [facility], [address] | K/[address] L | LAB | | | | [address] [place], | | | | | | [place] [address] | | | | + + +---- + + + | Absolute | 0.11 (H)Comment: Testing | 0.0 0 - 0.10 | EXTERNAL | | | Basophils | performed at [facility], [address] | [address] | LAB | | | | [address] [place], | | | | | | [place] [address] | | | | + + +---- + + + | RBC | 2+Comment: | | EXTERNAL | | | Morphology | ANISO2+HYPO1+TARGET1+POI | | LAB | | | | KNORMAL PLT MORPHTesting | | | | | | performed at [facility], [address] | | | | | | [address] [facility], | | | | | | [place] [address] | | | | | |TARGET | | | | | |1+ | | | | | |POIK | | | | | |NORMAL PLT MORPH | | | | | |Testing performed at [facility], [address] [place] [address] | | | | | | | [...] | | + +---------+ + + Potassium (08/07/2015 5:28 AM PDT) + + + + + + | Component | Value | Ref Range | Performed | Pathologist | | | | | At | Signature | + + + + + + | K | 3.8Comment: Testing | 3.5 - 4.9 | EXTERNAL | | | | performed at [facility] [place] | mmol/L | LAB | | | | [address] [facility];[place], [place] | | | | | | [address] | | | | + + + + + + + + | Specimen | + + | Blood specimen | | (specimen) | + + + +---------+ + + | Performing | Address | City/State/Zipcode | Phone Number | | Organization | | | | + +---------+ + + | EXTERNAL LAB | | | | + +---------+ + + Phosphorus (08/07/2015 5:28 AM PDT) + + + + + + | Component | Value | Ref Range | Performed | Pathologist | | | | | At | Signature | + + + + + + | PHOSPHORUS | 1.2 (L)Comment: Testing | 2.3 - 4.8 mg/dL | EXTERNAL | | | | performed at [facility] [place] | | LAB | | | | [address];[place], [place] | | | | | | [address] | | | | + + + + + + + + | Specimen | + + | Blood specimen | | (specimen) | + + + +---------+ + + | Performing | Address | City/State/Zipcode | Phone Number | | Organization | | | | + +---------+ + + | EXTERNAL LAB | | | | + +---------+ + + Magnesium (08/07/2015 5:28 AM PDT) + + + + + + | Component | Value | Ref Range | Performed | Pathologist | | | | | At | Signature | + + + + + + | Magnesium | 1.7Comment: Testing | 1.7 - 2.4 mg/dL | EXTERNAL | | | | performed at [facility] [place];[address] | | LAB | | | | [address];[place], [place] | | | | | | [address] | | | | + + + + + + + + | Specimen | + + | Blood specimen | | (specimen) | + + + +---------+ + + | Performing | Address | City/State/Zipcode | Phone Number | | Organization | | | | + +---------+ + + | EXTERNAL LAB | | | | + +---------+ + + Potassium (08/06/2015 9:49 PM PDT) + + + + + + | Component | Value | Ref Range | Performed | Pathologist | | | | | At | Signature | + + + + + + | K | 3.2 (L)Comment: Testing | 3.5 - 4.9 | EXTERNAL | | | | performed at [facility] [place] | mmol/L | LAB | | | | [address];[place] | | | | | | [address] | | | | + + + + + + + + | Specimen | + + | Blood specimen | | (specimen) | + + + +---------+ + + | Performing | Address | City/State/Zipcode | Phone Number | | Organization | | | | + +---------+ + + | EXTERNAL LAB | | | | + +---------+ + + Magnesium (08/06/2015 9:49 PM PDT) + + + + + + | Component | Value | Ref Range | Performed | Pathologist | | | | | At | Signature | + + + + + + | Magnesium | 2.0Comment: Testing | 1.7 - 2.4 mg/dL | EXTERNAL | | | | performed at [facility] [place];[address] | | LAB | | | | [address];[place], [place] | | | | | | [address] | | | | + + + [...] + +---------+ + + HISTORICAL MICROBIOLOGY RESULT (08/06/2015 7:34 PM PDT) + + | Specimen | + + | | + + + + + | Narrative | Performed At | + + + | GDH ANTIGEN POSITIVE Abnormal | EXTERNAL LAB | | Testing performed at [facility] [place] [place] [address];[place] [address] TOXIN A | | | NEGATIVE Testing performed | | | at [facility] [place] [place] [address];[place] [address] C DIFF INTERPRETATION | | | Positive for C.difficile bacteria. Toxin not detected. | | | C.difficile Toxin by PCR (CLPCR) was ordered by reflex. Results to | | | follow. EXPLANATION OF ALGORITHM: If PCR testing is positive for | | | Toxigenic C.difficile, then consider patient may be a colonized | | | carrier, or toxin level below the limit of detection. If PCR testing | | | is negative for Toxigenic C.difficile, then organism may be a non | | | toxigenic strain lacking the ability to produce toxin. Testing | | | performed at [facility] [place] [place] [address];[place] [address] | | + + + + +---------+ + + | Performing | Address | City/State/Zipcode | Phone Number | | Organization | | | | + +---------+ + + | EXTERNAL LAB | | | | + +---------+ + + HISTORICAL MICROBIOLOGY RESULT (08/06/2015 7:34 PM PDT) + + | Specimen | + + | | + + + + + | Narrative | Performed At | + + + | Toxigenic C Difficile POSITIVE for Toxigenic | EXTERNAL LAB | | C.diffAbnormal Testing performed at [facility] [place] [place] [address];[place], [place] | | | [phone] NAP1 BI 027 NAP1 BI | | | PRESUMPTIVE NEGATIVE Detection of 027 NAP1 BI strains of C. difficile | | | is presumptive and for epidemiological purposes and not intended to | | | guide or monitor treatment for C. difficile infections. Testing | | | performed at [facility] [place] [place] [address];[place] [address] | | + + + + +---------+ + + | Performing | Address | City/State/Zipcode | Phone Number | | Organization | | | | + +---------+ + + | EXTERNAL LAB | | | | + +---------+ + + Hemoglobin and Hematocrit (08/06/2015 6:23 PM PDT) + + + + + + | Component | Value | Ref Range | Performed | Pathologist | | | | | At | Signature | + + + + + + | Hgb | 8.5 (L)Comment: Testing | 11.3 - 15.5 | EXTERNAL | | | | performed at [facility] [place];888 | g/dL | LAB | | | | [address];[place] | | | | | | [address] | | | | + + + + + + | Hematocrit, | 29.1 (L)Comment: Testing | 34.0 - 46.0 % | EXTERNAL | | | POC | performed at [facility] [place];[address] | | LAB | | | | [address];[place], [place] | | | | | | [address] | | | | + + + + + + + + | Specimen | + + | | + + + +---------+ + + | Performing | Address | City/State/Zipcode | Phone Number | | Organization | | | | + +---------+ + + | EXTERNAL LAB | | | | + +---------+ + + Hemoglobin and Hematocrit (08/06/2015 12:05 PM PDT) + + + + + + | Component | Value | Ref Range | Performed | Pathologist | | | | | At | Signature | + + + + + + | Hgb | 8.5 (L)Comment: Testing | 11.3 - 15.5 | EXTERNAL | | | | performed at [facility] [place];[address] | g/dL | LAB | | | | [address];[place] | | | | | | [address] | | | | + + + + + + | Hematocrit, | 28.9 (L)Comment: Testing | 34.0 - 46.0 % | EXTERNAL | | | POC | performed at [facility] [place];[address] | | LAB | | | | [address];[place] | | | | | | [address] | | | | + + + + + + + + | Specimen | + + | | + + + +---------+ + + | Performing | Address | City/State/Zipcode | Phone Number | | Organization | | | | + +---------+ + + | EXTERNAL LAB | | | | + +---------+ + + Potassium (08/06/2015 8:45 AM PDT) + + + + + + | Component | Value | Ref Range | Performed | Pathologist | | | | | At | Signature | + + + + + + | K | 3.9Comment: Testing | 3.5 - 4.9 | EXTERNAL | | | | performed at [facility] [place] | mmol/L | LAB | | | | [address];[place], [place] | | | | | | [address] | | | | + + + + + + + + | Specimen | + + | Blood specimen | | (specimen) | + + + +---------+ + + | Performing | Address | City/State/Zipcode | Phone Number | | Organization | | | | + +---------+ + + | EXTERNAL LAB | | | | + +---------+ + + Protime INR (08/06/2015 5:01 AM PDT) + + + + + + | Component | Value | Ref Range | Performed | Pathologist | | | | | At | Signature | + + + + + + | INR | 1.2Comment: REFERENCE | | EXTERNAL | | | [...] | | | | performed at [facility] [place] | | | | | | [address];[place], [place] | | | | | | [address] | | | | + + + [...] + +---------+ + + External Lab: RAPHAEL (08/06/2015 5:01 AM PDT) + + +---- + + + | Component | Value | Ref Range | Performed | Pathologist | | | | | At | Signature | + + +---- + + + | WBC | 23.00 (H)Comment: | 3.8 0 - 11.00 | EXTERNAL | | | | Testing performed at | K/u L | LAB | | | | TCL, [address] | | | | | | [place] | | | | | | [address] | | | | + + +---- + + + | RED CELL | 3.89Comment: Testing | 3.7 0 - 5.10 | EXTERNAL | | | COUNT | performed at [facility], [address] | M/u L | LAB | | | | [address] [place], | | | | | | [place] [address] | | | | + + +---- + + + | Hgb | 9.1 (L)Comment: Testing | 11. 3 - 15.5 | EXTERNAL | | | | performed at [facility], [address] | g/d L | LAB | | | | [place], | | | | | | [place] [address] | | | | + + +---- + + + | Hematocrit, | 30.7 (L)Comment: Testing | 34. 0 - 46.0 % | EXTERNAL | | | POC | performed at [facility], [address] | | LAB | | | | [address] [place], | | | | | | [place] [address] | | | | + + +---- + + + | MCV | 78.9 (L)Comment: Testing | 80. 0 - 100.0 fl | EXTERNAL | | | | performed at [facility], [address] | | LAB | | | | [address], | | | | | | [place] [address] | | | | + + +---- + + + | MCH | 23.4 (L)Comment: Testing | 27. 0 - 34.0 pg | EXTERNAL | | | | performed at [facility], [address] | | LAB | | | | [address] [place], | | | | | | [place] [address] | | | | + + +---- + + + | MCHC | 29.7 (L)Comment: Testing | 32. 0 - 35.5 | EXTERNAL | | | | performed at [facility], [address] | g/d L | LAB | | | | [address] [place], | | | | | | [place] [address] | | | | + + +---- + + + | RDW-CV | 63.9 (H)Comment: Testing | 37 - 53 fl | EXTERNAL | | | | performed at [facility], [address] | | LAB | | | | [address] [place], | | | | | | [place] [address] | | | | + + +---- + + + | Platelet | 436 (H)Comment: Testing | 150 - 400 K/uL | EXTERNAL | | | Count | performed at [facility], [address] | | LAB | | | Plasma | [address], | | | | | | [place] [address] | | | | + + +---- + + + | MPV | 8.1Comment: Testing | fl | EXTERNAL | | | | performed at [facility], [address] | | LAB | | | | [address] [place], | | | | | | [place] [address] | | | | + + +---- + + + | Differentia | AUTOMATEDComment: | | EXTERNAL | | | l Type | Testing performed at | | LAB | | | | [facility], [address] | | | | | | [place] | | | | | | [address] | | | | + + +---- + + + | % Segmented | 78.91Comment: Testing | % | EXTERNAL | | | | performed at [facility], [address] | | LAB | | | Neutrophils | [address] [place], | | | | | | [place] [address] | | | | + + +---- + + + | % | 15.10Comment: Testing | % | EXTERNAL | | | Lymphocytes | performed at [facility], [address] | | LAB | | | | [address], | | | | | | [place] [address] | | | | + + +---- + + + | % Monocytes | 5.31Comment: Testing | % | EXTERNAL | | | | performed at [facility], [address] | | LAB | | | | [address], | | | | | | [place] [address] | | | | + + +---- + + + | % | 0.03Comment: Testing | % | EXTERNAL | | | Eosinophils | performed at [facility], [address] | | LAB | | | | [address] [place], | | | | | | [place] [address] | | | | + + +---- + + + | % Basophils | 0.65Comment: Testing | % | EXTERNAL | | | | performed at [facility], [address] | | LAB | | | | [address] [place], | | | | | | [place] [address] | | | | + + +---- + + + | Absolute | 18.14 (H)Comment: | 1.9 0 - 7.40 | EXTERNAL | | | Segmented | Testing performed at | K/u L | LAB | | | Neutrophils | [facility], [address] | | | | | | [place] | | | | | | [address] | | | | + + +---- + + + | Absolute | 3.47Comment: Testing | 1.0 0 - 3.90 | EXTERNAL | | | Lymphocytes | performed at [facility], [address] | K/u L | LAB | | | | [address], | | | | | | [place] [address] | | | | + + +---- + + + | Absolute | 1.22 (H)Comment: Testing | 0.0 0 - 0.80 | EXTERNAL | | | Monocytes | performed at [facility], [address] | [address] | LAB | | | | [address] [place], | | | | | | [place] [address] | | | | + + +---- + + + | Absolute | 0.01Comment: Testing | 0.0 0 - 0.50 | EXTERNAL | | | Eosinophils | performed at [facility], [address] | K/u L | LAB | | | | [address] [place], | | | | | | [place] [address] | | | | + + +---- + + + | Absolute | 0.15 (H)Comment: Testing | 0.0 0 - 0.10 | EXTERNAL | | | Basophils | performed at [facility], [address] | [address] | LAB | | | | [address] [place], | | | | | | [place] [address] | | | | + + +---- + + + | RBC | 2+Comment: | | EXTERNAL | | | Morphology | ANISO1+POLY2+HYPO1+MICRO | | LAB | | | | 1+TARGETNORMAL PLT | | | | | | MORPHTesting performed | | | | | | at [facility], [address] | | | | | | [facility], | | | | | | [place] [address] | | | | | |1+ | | | | | |MICRO | | | | | |1+ | | | | | |TARGET | | | | | |NORMAL PLT MORPH | | | | | |Testing performed at [facility], [address] [place] [address] | | | | | | | [...] | | + +---------+ + + Phosphorus (08/06/2015 5:01 AM PDT) + + + + + [...] | | | | | [place] [address] | | | | + + + + + + + + | Specimen | + + | Blood specimen | | (specimen) | + + + +---------+ + + | Performing | Address | City/State/Zipcode | Phone Number | | Organization | | | | + +---------+ + + | EXTERNAL LAB | | | | + +---------+ + + Magnesium (08/06/2015 5:01 AM PDT) + + + + + + | Component | Value | Ref Range | Performed | Pathologist | | | | | At | Signature | + + + + + + | Magnesium | 1.1 (L)Comment: Testing | 1.7 - 2.4 mg/dL | EXTERNAL | | | | performed at [facility], [address] | | LAB | | | | [address], | | | | | | [place] [address] | | | | + + + [...] + +---------+ + + Comprehensive Metabolic Panel (08/06/2015 5:01 AM PDT) + + + + + [...] | | | | | [place] [address] | | | | + + + + + + | K | 3.5Comment: Testing | 3.5 - 4.9 | EXTERNAL | | | | performed at [facility], [address] | mmol/L | LAB | | | | [address] [place], | | | | | | [place] [address] | | | | + + + + + + | Cl | 105Comment: Testing | 99 - 109 mmol/L | EXTERNAL | | | | performed at [facility], [address] | | LAB | | | | [address], | | | | | | [place] [address] | | | | + + + + + + | CO2 | 22 (L)Comment: Testing | 23 - 32 mmol/L | EXTERNAL | | | | performed at [facility], [address] | | LAB | | | | [address], | | | | | | [place] [address] | | | | + + + + + + | Anion Gap | 14Comment: Testing | 5 - 20 mmol/L | EXTERNAL | | | | performed at [facility], [address] | | LAB | | | | [address], | | | | | | [place] [address] | | | | + + + + + + | Glucose, | 92Comment: Testing | 65 - 99 mg/dL | EXTERNAL | | | Fasting | performed at [facility], [address] | | LAB | | | | [address], | | | | | | [place] [address] | | | | + + + + + + | BUN | 36 (H)Comment: Testing | 8 - 25 mg/dL | EXTERNAL | | | | performed at [facility], [address] | | LAB | | | | [address], | | | | | | [place] [address] | | | | + + + + + + | Creatinine | 1.07 (H)Comment: Testing | 0.50 - 1.00 | EXTERNAL | | | | performed at [facility], [address] | mg/dL | LAB | | | | [address], | | | | | | [place] [address] | | | | + + + + + + | BUN/Creatin | 34Comment: Testing | | EXTERNAL | | | ine Ratio | performed at [facility], [address] | | LAB | | | | [address], | | | | | | [place] [address] | | | | + + + + + + | Calcium | 7.0 (L)Comment: Testing | 8.5 - 10.5 | EXTERNAL | | | | performed at [facility], [address] | mg/dL | LAB | | | | [address] [place], | | | | | | [place] [address] | | | | + + + + + + | Protein, | 5.9 (L)Comment: Testing | 6.3 - 8.2 g/dL | EXTERNAL | | | Total | performed at [facility], [address] | | LAB | | | | [address] [place], | | | | | | [place] [address] | | | | + + + + + + | Albumin | 2.9 (L)Comment: Testing | 3.6 - 5.0 g/dL | EXTERNAL | | | | performed at [facility], [address] | | LAB | | | | [address], | | | | | | [place] [address] | | | | + + + + + + | Globulin | 3.0Comment: Testing | 1.3 - 4.9 g/dL | EXTERNAL | | | | performed at [facility], [address] | | LAB | | | | [address], | | | | | | [place] [address] | | | | + + + + + + | A/G Ratio | 1.0Comment: Testing | 1.0 - 2.4 | EXTERNAL | | | | performed at [facility], [address] | | LAB | | | | [address], | | | | | | [place] [address] | | | | + + + + + + | Bilirubin | 0.8Comment: Testing | 0.1 - 1.5 mg/dL | EXTERNAL | | | Total | performed at [facility], [address] | | LAB | | | | [address], | | | | | | [place] [address] | | | | + + + + + + | ALP, | 148 (H)Comment: Testing | 35 - 115 U/L | EXTERNAL | | | External | performed at [facility], [address] | | LAB | | | | [address], | | | | | | [place] [address] | | | | + + + + + + | AST | 34Comment: Testing | 10 - 45 U/L | EXTERNAL | | | | performed at [facility], [address] | | LAB | | | | [address], | | | | | | [place] [address] | | | | + + + + + + | ALT | 39Comment: Testing | 10 - 65 U/L | EXTERNAL | | | | performed at [facility], [address] | | LAB | | | | [address], | | | | | | [place] [address] | | | | + + + + + + | Estimated | 56 (L)Comment: GFR <60: | mL/min/1.73m2 | EXTERNAL [...] [place], | | | | | | [place] [address] | | | | + + + + + + + + | Specimen | + + | Blood specimen | | (specimen) | + + + +---------+ + + | Performing | Address | City/State/Zipcode | Phone Number | | Organization | | | | + +---------+ + + | EXTERNAL LAB | | | | + +---------+ + + Hemoglobin and Hematocrit (08/06/2015 12:04 AM PDT) + + + + + + | Component | Value | Ref Range | Performed | Pathologist | | | | | At | Signature | + + + + + + | Hgb | 9.6 (L)Comment: Testing | 11.3 - 15.5 | EXTERNAL | | | | performed at [facility] [place] | g/dL | LAB | | | | [address] [place];[place] | | | | | | [address] | | | | + + + + + + | Hematocrit, | 32.0 (L)Comment: Testing | 34.0 - 46.0 % | EXTERNAL | | | POC | performed at [facility] [place] | | LAB | | | | [address] [place] | | | | | | [address] | | | | + + + + + + + + | Specimen | + + | | + + + +---------+ + + | Performing | Address | City/State/Zipcode | Phone Number | | Organization | | | | + +---------+ + + | EXTERNAL LAB | | | | + +---------+ + + XR Chest 1 Vw (08/05/2015 9:27 PM PDT) + + | Specimen | + + | | + + + + + | Impressions | Performed At | + + + | 1. Chronic findings, as above, without acute disease. | | | | | + + + + + + | Narrative | Performed At | + + + | [facility] XR CHEST 1 VIEW 08/05/2015 9:27 PM HISTORY: | | | Leukocytosis. TECHNIQUE: AP chest radiograph at 2122 hours. | | | COMPARISON: Chest radiograph dated 11/06/2014. FINDINGS: Chronic | | | elevation of the right hemidiaphragm seen. With exception of some | | | chronic subsegmental atelectasis the right lung base, the lungs are | | | clear. The thoracic aorta is tortuous. A hiatal hernia is again seen. | | | No pneumothorax or pleural effusion is found. No worrisome bone | | | lesions are identified. | | + + + + + | Procedure Note | + + | Judson, Rad Conversion - 11/23/2018 9:20 PM PDT [facility] CHEST 1 VIEW08/05/2015 | | 9:27 PM HISTORY:Leukocytosis. TECHNIQUE:AP chest radiograph at 2122 hours. | | COMPARISON:Chest radiograph dated 11/06/2014. FINDINGS:Chronic elevation of the right | | hemidiaphragm seen. With exception of some chronic subsegmental atelectasis the right | | lung base, the lungs are clear. The thoracic aorta is tortuous. A hiatal hernia is again | | seen. No pneumothorax or pleural effusion is found. No worrisome bone lesions are | | identified. IMPRESSION: 1. Chronic findings, as above, without acute disease. | | | |AP chest radiograph at 2122 hours. | | | |COMPARISON: | |Chest radiograph dated 11/06/2014. | | | |FINDINGS: | |Chronic elevation of the right hemidiaphragm seen. With exception of some chronic subsegmen isha atelectasis the right lung base, the lungs are clear. The thoracic aorta is tortuous. A hiatal hernia is again seen. No pneumothorax or pleural effusion is | |found. No worrisome bone lesions are identified. | | | |IMPRESSION: | |1. Chronic findings, as above, without acute disease. | | | | | + + Urinalysis, Microscopic Only (08/05/2015 9:22 PM PDT) + + + + + + | Component | Value | Ref Range | Performed | Pathologist | | | | | At | Signature | + + + + + + | WBC, UA | >100Comment: Testing | 0 - 5 /hpf | EXTERNAL | | | | performed at [facility], [address] | | LAB | | | | [address] [place], | | | | | | [place] [address] | | | | + + + + + + | RBC, UA | 1-5Comment: Testing | 0 - 5 /hpf | EXTERNAL | | | | performed at [facility], [address] | | LAB | | | | [address] [place], | | | | | | [place] [address] | | | | + + + + + + | Epithelial | 1-5Comment: Testing | /lpf | EXTERNAL | | | Cells | performed at [facility], [address] | | LAB | | | | [address] [place], | | | | | | [place] [address] | | | | + + + + + + | Bacteria, | NONE SEENComment: | | EXTERNAL | | | UA | Testing performed at | | LAB | | | | [facility], [address] | | | | | | [place] | | | | | | [address] | | | | + + + + + + + + | Specimen | + + | | + + + +---------+ + + | Performing | Address | City/State/Zipcode | Phone Number | | Organization | | | | + +---------+ + + | EXTERNAL LAB | | | | + +---------+ + + Urinalysis with Microscopic if Indicated (08/05/2015 9:22 PM PDT) + + + + + + | Component | Value | Ref Range | Performed | Pathologist | | | | | At | Signature | + + + + + + | Color | YELLOWComment: Testing | | EXTERNAL | | | | performed at [facility], [address] | | LAB | | | | [address] [place], | | | | | | [place] [address] | | | | + + + + + + | Clarity | TURBIDComment: Testing | | EXTERNAL | | | | performed at [facility], [address] | | LAB | | | | [place] [place], | | | | | | [place] [address] | | | | + + + + + + | Specific | 1.018Comment: Testing | 1.002 - 1.030 | EXTERNAL | | | [place] | performed at [facility], [address] | | LAB | | | | [address], | | | | | | [place] [address] | | | | + + + + + + | Leukocyte | LARGE (A)Comment: | | EXTERNAL | | | Esterase, | Testing performed at | | LAB | | | Urine | [facility], [address] | | | | | | [place] | | | | | | [address] | | | | + + + + + + | Nitrite, | NEGATIVEComment: Testing | | EXTERNAL | | | Urine | performed at [facility], [address] | | LAB | | | | [address] [place], | | | | | | [place] [address] | | | | + + + + + + | Urobilinoge | 0.2Comment: Testing | mg/dL | EXTERNAL | | | n, Urine | performed at [facility], [address] | | LAB | | | | [address], | | | | | | [place] [address] | | | | + + + + + + | Protein, | 30 (A)Comment: Testing | mg/dL | EXTERNAL | | | Urine | performed at [facility], [address] | | LAB | | | | [address], | | | | | | [place] [address] | | | | + + + + + + | pH, Urine | 6.0Comment: Testing | 5.0 - 8.0 | EXTERNAL | | | | performed at [facility], [address] | | LAB | | | | [address], | | | | | | [place] [address] | | | | + + + + + + | Blood, | MODERATE (A)Comment: | | EXTERNAL | | | Urine | Testing performed at | | LAB | | | | [facility], [address] | | | | | | [place] | | | | | | [address] | | | | + + + + + + | Ketones | NEGATIVEComment: Testing | mg/dL | EXTERNAL | | | | performed at [facility], [address] | | LAB | | | | [address] [place], | | | | | | [place] [address] | | | | + + + + + + | Bilirubin, | SMALL (A)Comment: | | EXTERNAL | | | Urine | Testing performed at | | LAB | | | | [facility], [address] | | | | | | [place] | | | | | | [address] | | | | + + + + + + | Glucose, | NEGATIVEComment: Testing | mg/dL | EXTERNAL | | | Urine | performed at [facility], [address] | | LAB | | | | [address] [place], | | | | | | [place] [address] | | | | + + + + + + + + | Specimen | + + | Urine specimen | | (specimen) | + + + +---------+ + + | Performing | Address | City/State/Zipcode | Phone Number | | Organization | | | | + +---------+ + + | EXTERNAL LAB | | | | + +---------+ + + Type and Screen (08/05/2015 8:36 PM PDT) + + + + + + | Component | Value | Ref Range | Performed | Pathologist | | | | | At | Signature | + + + + + + | ABO Rh | O NEGATIVE | | EXTERNAL | | | | | | LAB | | + + + + + + | ABO Rh | Testing performed at | | EXTERNAL | | | | [facility];[address] | | LAB | | | | [address];[place] [address] | | | | + + + + + + | Antibody | NEGATIVE | | EXTERNAL | | | Screen | | | LAB | | + + + + + + | Antibody | Testing performed at | | EXTERNAL | | | Screen | [facility];[address] | | LAB | | | | Blvd;[place] [address] | | | | + + + + + + | BB BAND | [id number] | | EXTERNAL | | | | | | LAB | | + + + + + + | BB BAND | Testing performed at | | EXTERNAL | | | | [facility] [place] | | LAB | | | | [place] [address] | | | | + + + + + + + + | Specimen | + + | Blood specimen | | (specimen) | + + + +---------+ + + | Performing | Address | City/State/Zipcode | Phone Number | | Organization | | | | + +---------+ + + | EXTERNAL LAB | | | | + +---------+ + + Protime INR (08/05/2015 8:36 PM PDT) + + + + + [...] | | | | performed at [facility] [place] | | | | | [facility];[place], [place] | | | | | | [address] | | | | + + + [...] + +---------+ + + External Lab: CBC (08/05/2015 8:36 PM PDT) + + +---- + + + | Component | Value | Ref Range | Performed | Pathologist | | | | | At | Signature | + + +---- + + + | WBC | 28.83 (H)Comment: | 3.8 0 - 11.00 | EXTERNAL | | | | Testing performed at | K/u L | LAB | | | | [facility], [address] [facility] | | | | | | [place] | | | | | | [address] | | | | + + +---- + + + | RED CELL | 4.26Comment: Testing | 3.7 0 - 5.10 | EXTERNAL | | | COUNT | performed at [facility], [address] | M/u L | LAB | | | | [address], | | | | | | [place] [address] | | | | + + +---- + + + | Hgb | 10.3 (L)Comment: Testing | 11. 3 - 15.5 | EXTERNAL | | | | performed at [facility], [address] | g/d L | LAB | | | | [address] [place], | | | | | | [place] [address] | | | | + + +---- + + + | Hematocrit, | 33.2 (L)Comment: Testing | 34. 0 - 46.0 % | EXTERNAL | | | POC | performed at [facility], [address] | | LAB | | | | [address] [place], | | | | | | [place] [address] | | | | + + +---- + + + | MCV | 77.9 (L)Comment: Testing | 80. 0 - 100.0 fl | EXTERNAL | | | | performed at [facility], [address] | | LAB | | | | [address] [place], | | | | | | [place] [address] | | | | + + +---- + + + | MCH | 24.1 (L)Comment: Testing | 27. 0 - 34.0 pg | EXTERNAL | | | | performed at [facility], [address] | | LAB | | | | [address] [place], | | | | | | [place] [address] | | | | + + +---- + + + | MCHC | 30.9 (L)Comment: Testing | 32. 0 - 35.5 | EXTERNAL | | | | performed at [facility], [address] | g/d L | LAB | | | | [address] [place], | | | | | | [place] [address] | | | | + + +---- + + + | RDW-CV | 61.3 (H)Comment: Testing | 37 - 53 fl | EXTERNAL | | | | performed at [facility], [address] | | LAB | | | | [address] [place], | | | | | | [place] [address] | | | | + + +---- + + + | Platelet | 445 (H)Comment: Testing | 150 - 400 K/uL | EXTERNAL | | | Count | performed at [facility], [address] | | LAB | | | Plasma | [address] [place], | | | | | | [place] [address] | | | | + + +---- + + + | MPV | 8.6Comment: Testing | fl | EXTERNAL | | | | performed at [facility], [address] | | LAB | | | | [address] [place], | | | | | | [place] [address] | | | | + + +---- + + + | Differentia | MANUALComment: Testing | | EXTERNAL | | | l Type | performed at [facility], [address] | | LAB | | | [address], | | | | | | [place] [address] | | | | + + +---- + + + | Segmented | 77Comment: Testing | % | EXTERNAL | | | Neutrophils | performed at [facility], [address] | | LAB | | | Manual | [address], | | | | | | [place] [address] | | | | + + +---- + + + | Lymphocytes | 14Comment: Testing | % | EXTERNAL | | | Manual | performed at [facility], [address] | | LAB | | | | [address], | | | | | | [place] [address] | | | | + + +---- + + + | Monocytes | 9Comment: Testing | % | EXTERNAL | | | Manual | performed at [facility], [address] | | LAB | | | | [address] [place], | | | | | | [place] [address] | | | | + + +---- + + + | Absolute | 22.20 (H)Comment: | 1.9 0 - 7.40 | EXTERNAL | | | Neutrophils | Testing performed at | K/u L | LAB | | | | [facility], [address] | | | | | | [place] | | | | | | [address] | | | | + + +---- + + + | Absolute | 4.04 (H)Comment: Testing | 1.0 0 - 3.90 | EXTERNAL | | | Lymphocytes | performed at [facility], [address] | [address] | LAB | | | | [address] [place], | | | | | | [place] [address] | | | | + + +---- + + + | Absolute | 2.59 (H)Comment: Testing | 0.0 0 - 0.80 | EXTERNAL | | | Monocytes | performed at [facility], [address] | [address] | LAB | | | | [address] [place], | | | | | | [place] [address] | | | | + + +---- + + + | RBC | 1+Comment: | | EXTERNAL | | | Morphology | ANISO1+POIK2+HYPO1+MICRO | | LAB | | | | 1+TARGETNORMAL PLT | | | | | | MORPHTesting performed | | | | | | at [facility], [address] | | | | | | [facility], | | | | | | [place] [address] | | | | | |1+ | | | | | |MICRO | | | | | |1+ | | | | | |TARGET | | | | | |NORMAL PLT MORPH | | | | | |Testing performed at [facility], [address] [place] [address] | | | | | | | [...] + +---------+ + + Comprehensive Metabolic Panel (08/05/2015 8:36 PM PDT) + + + + + + | Component | Value | Ref Range | Performed | Pathologist | | | | | At | Signature | + + + + + + | Na | 133 (L)Comment: Testing | 135 - 143 | EXTERNAL | | | | performed at [facility], [address] | mmol/L | LAB | | | | [address] [place], | | | | | | [place] [address] | | | | + + + + + + | K | 2.9 (L)Comment: Testing | 3.5 - 4.9 | EXTERNAL | | | | performed at [facility], [address] | mmol/L | LAB | | | | [address] [place], | | | | | | [place] [address] | | | | + + + + + + | Cl | 98 (L)Comment: Testing | 99 - 109 mmol/L | EXTERNAL | | | | performed at [facility], [address] | | LAB | | | | [address], | | | | | | [place] [address] | | | | + + + + + + | CO2 | 22 (L)Comment: Testing | 23 - 32 mmol/L | EXTERNAL | | | | performed at [facility], [address] | | LAB | | | | [address], | | | | | | [place] [address] | | | | + + + + + + | Anion Gap | 16Comment: Testing | 5 - 20 mmol/L | EXTERNAL | | | | performed at [facility], [address] | | LAB | | | | [address], | | | | | | [place] [address] | | | | + + + + + + | Glucose, | 89Comment: Testing | 65 - 99 mg/dL | EXTERNAL | | | Fasting | performed at [facility], [address] | | LAB | | | | [address], | | | | | | [place] [address] | | | | + + + + + + | BUN | 39 (H)Comment: Testing | 8 - 25 mg/dL | EXTERNAL | | | | performed at [facility], [address] | | LAB | | | | [address], | | | | | | [place] [address] | | | | + + + + + + | Creatinine | 1.49 (H)Comment: Testing | 0.50 - 1.00 | EXTERNAL | | | | performed at [facility], [address] | mg/dL | LAB | | | | [address], | | | | | | [place] [address] | | | | + + + + + + | BUN/Creatin | 26Comment: Testing | | EXTERNAL | | | ine Ratio | performed at [facility], [address] | | LAB | | | | [address], | | | | | | [place] [address] | | | | + + + + + + | Calcium | 7.5 (L)Comment: Testing | 8.5 - 10.5 | EXTERNAL | | | | performed at [facility], [address] | mg/dL | LAB | | | | [address], | | | | | | [place] [address] | | | | + + + + + + | Protein, | 6.8Comment: Testing | 6.3 - 8.2 g/dL | EXTERNAL | | | Total | performed at [facility], [address] | | LAB | | | | [address], | | | | | | [place] [address] | | | | + + + + + + | Albumin | 3.4 (L)Comment: Testing | 3.6 - 5.0 g/dL | EXTERNAL | | | | performed at [facility], [address] | | LAB | | | | [address], | | | | | | [place] [address] | | | | + + + + + + | Globulin | 3.4Comment: Testing | 1.3 - 4.9 g/dL | EXTERNAL | | | | performed at [facility], [address] | | LAB | | | | [address], | | | | | | [place] [address] | | | | + + + + + + | A/G Ratio | 1.0Comment: Testing | 1.0 - 2.4 | EXTERNAL | | | | performed at [facility], [address] | | LAB | | | | [address], | | | | | | [place] [address] | | | | + + + + + + | Bilirubin | 0.8Comment: Testing | 0.1 - 1.5 mg/dL | EXTERNAL | | | Total | performed at [facility], [address] | | LAB | | | | [address], | | | | | | [place] [address] | | | | + + + + + + | ALP, | 183 (H)Comment: Testing | 35 - 115 U/L | EXTERNAL | | | External | performed at [facility], [address] | | LAB | | | | [address], | | | | | | [place] [address] | | | | + + + + + + | AST | 48 (H)Comment: Testing | 10 - 45 U/L | EXTERNAL | | | | performed at [facility], [address] | | LAB | | | | [address], | | | | | | [place] [address] | | | | + + + + + + | ALT | 56Comment: Testing | 10 - 65 U/L | EXTERNAL | | | | performed at [facility], [address] | | LAB | | | | [address], | | | | | | [place] [address] | | | | + + + + + + | Estimated | 38 (L)Comment: GFR <60: | mL/min/1.73m2 | EXTERNAL [...] W | | | | | | [address], | | | | | | [place] [address] | | | | + + + [...]
--- OUTSIDE RECORDS SUMMARY | ~2019-03-09 | XMS | Encounter Summary ---
Demographics + + + | Address | [address] | | | [place] [address] | + + + | Home Phone | | + + + | Preferred Language | Unknown | + + + | Marital Status | | + + + | Anabaptist Affiliation | Unknown | + + + | Race | Unknown | + + + | Ethnic Group | Unknown | + + + Author + + + | Author | [facility] | | | and [place] | + + + | Organization | [facility] | | | and [...] Team Providers + +------+ + | Care Embedded Systems Designer Name | Role | Phone | + +------+ + PCP | Unavailable | + +------+ + Encounter Details +--------+ + + + + | Date | Type | Department | Care Team | Description | +--------+ + + + + | 10/16/ | Hospital | [facility] | Enrique Bocanegra, | Rectovaginal fistula | | 2016 | Encounter | [facility] | [address] | | | | | [address] | [address] | | | | | [place], [place] | [place] [address] | | | | | [address] | [phone] | | | | | [phone] | | | +--------+ + + + [...] Anesthesiology Author Type: Registered Cirilo se Filed: 10/17/15 2223 Date of Service: 10/17/152009 Status: Signed [employer]: Osvaldo Dial RN (Registered Nurse) Patient and [...] w/c home. docume nted in this encounter Plan of [...] interpretation and technical preparation was performed by [facility] | | | [facility], [address], | | | [place] [address] (Fire Lieutenant: Raphael Yee M.D.; IA#: | | | [id number]). Diagnostician: Honey Mcduffie MD Pathologist | | [...]
--- OUTSIDE RECORDS SUMMARY | ~2019-03-09 | XMS | Encounter Summary ---
Demographics + + + | Address | [address] | | | [place] [address] | + + + | Home Phone | | + + + | Preferred Language | Unknown | + + + | Marital Status | | + + + | Bahai Affiliation | NRP | + + + | Race | White | + + + | Ethnic Group | Not or | + + + Author + + + | Author | [facility] | + + + | Organization | [facility] | + + + | Address | Unknown | + + + | Phone | Unavailable | + + + Support + + + + + | Name | Relationship | Address | Phone | + + + + + | Kole Willingham | [place] | [address] | | | | | [place], [place] | | | | | [address] | | + + + + + | Cami Sawyer | ECON | Unknown | | + + + + + Care Team Providers + +------+ + | Care Presser Cotton Ginning Name | Role | Phone | + [...] 2015 | | General Surgery at | PRIMARY OPERATOR [address] | | | | | [facility] [address] | [address] | | | | | [address] | [facility] [place] | | | | | Mailcode: [id number] | [address] | | | | | Jose Ortiz | [phone] | | | | | [address] [facility] [place] | | | | | | [address] | | | | | | [phone] | | | +--------+ + + + [...]
--- OUTSIDE RECORDS SUMMARY | ~2019-03-09 | XMS | Encounter Summary ---
Demographics + + + | Address | [address] | | | [place] [address] | + + + | Home Phone | | + + + | Preferred Language | Unknown | + + + | Marital Status | | + + + | Worship Affiliation | NRP | + + + [...] [place], [place] | | | | | [address] | | + + + + + | Cami Sawyer | ECON | Unknown | | + + + + + Care Team Providers + +------+ + | Care Medical Technicians Name | Role | Phone | + [...] | +--------+ + + + + | 04/24/ | Anesthesia | 6A Intra Op [facility] | Joana Sellers MD | | | 2014 | Event | [facility] | [address] [place] | | | | | Admitting Desk | [place]en [place], | | | | | Located on the | [place] [address] | | | | | floor [address] | [phone] | | | | | [address] | | | | | | [place], [place] | Rajiv Willingham MD | | | | | [address] | [facility] | | | | | [facility] [address] [place] | | | | | | [facility] | | | | | | [place] [address] | | | | | | [phone] | | | | | | | | +--------+ + + + + Anesthesia Record + + + + + | Procedure Name | Responsible | Anesthesia Start | Anesthesia Stop Time | | | Anesthesiologist | Time | | + + + + + | RE-OPEN LAPAROTOMY, | Joana Sellers MD | 04/24/14 0720 | 04/24/14 0947 | | evacuation of | | | | | hematoma, control of | | | | | retroperitonieal | | | | | hemorage, lysis of | | | | | adhesions, wound vac | | | | | placement, and | | | | | abdominal wall | | | | | closure (N/A | | | | | Abdomen) | | | | + + + + + +----+---+ + + | Da | T | Event | Comment | | te | i | | | | | m | | | | | e | | | +----+---+ + + | 01 | 0 | Eq Check | Anesthesia machine checked Equipment verified | | /1 | 6 | | | | 4/ | 5 | | | | 20 | 6 | | | | 15 | | | | +----+---+ + + | | 0 | | | | | 7 | | | | | 2 | | | | | 0 | | | +----+---+ + + | | 0 | Pt. Check | Prior to anesthesia start, pt. Identified, examined, chart | | | 7 | | reviewed, PAREden held, anesthetic plan made or approved by | | | 2 | | attending anesthesiologist. NPO status confirmed as appropriate | | | 0 | | for procedure Preoperative evaluation: unchanged | +----+---+ + + | | 0 | An Start | | | | 7 | | | | | 2 | | | | | 0 | | | +----+---+ + + | | 0 | ICU to OR | signout received from ICU team, patient transported to OR with | | | 7 | | continous monitoring, intubated and ventilated. Infusions from | | | 2 | | ICU. LR 100ml/hr Fentanyl 100 mcg/hr | | | 0 | | | +----+---+ + + | | 0 | Vitals | Monitors applied Vital signs checked Patient ready for anesthesia | | | 7 | Checked | | | | 2 | | | | | 0 | | | +----+---+ + + | | 0 | An Start | | | | 7 | Data | | | | 2 | | | | | 9 | | | +----+---+ + + | | 0 | Ready | | | | 7 | | | | | 4 | | | | | 0 | | | +----+---+ + + | | 0 | Abx | | | | 7 | Administere | | | | 5 | d | | | | 0 | | | +----+---+ + + | | 0 | Incision | | | | 7 | | | | | 5 | | | | | 8 | | | +----+---+ + + | | 0 | Surgery end | | | | 9 | | | | | 2 | | | | | 7 | | | +----+---+ + + | | 0 | OR to | patient transported to ICU with continuos monitoring, intubated | | | 9 | ICU/Handoff | and ventilated, signout given to ICU team | | | 3 | | | | | 1 | | | +----+---+ + + | | 0 | an stop | | | | 9 | data | | | | 3 | | | | | 2 | | | +----+---+ + + | | 0 | Anesthesia | | | | 9 | End | | | | 4 | | | | | 7 | | | +----+---+ + + +------+ | Meds | +------+ + + + | Name | Total | + + + | midazolam | 2 mg | + + + | fentaNYL | 250 mcg | + + + | PHENYLephrine | 200 mcg | + + + | ceFAZolin | 2,000 mg | + + + | albumin 5% | 500 mL | + + + | rocuronium | 50 mg | + + + | lactated ringers IV | 1,000 mL | + + + + + | Name | + + | O2 FR Avance (Total Liters) | + + | Air FR Avance (l/min) | + + | Insp Jeffrey | + + | Et Jeffrey | + + | Insp Iso | + + | Et Iso | + + | Insp N2O % | + + + + | No [...] +--------+ + + + | RETIRE | Rt IJ introducer; 04/24/14; 1430; | 04/23/14 1142 by | 04/24/14 1430 by | | D - | Yes; Hands Free; No; Right; | | Haydee Enrique RN | | [facility] | Jugular | | | | l Line | | | | +--------+ + + + | RETIRE | power picc (should have | 04/23/14 1143 by | 01/27/17 1622 by | | D - | beencharted under "picc"); | | Discontinued After | | [facility] | 01/27/17 (Automatic cleanup per | | Discharge | | l Line | RA 3006--contact admin for | | | | | questions.); 1622 (Automatic | | | | | cleanup per RA 3006--contact | | | | | admin for questions.); Yes; Right | | | +--------+ + + + | RETIRE | (should be charted under | 04/23/14 1145 by | 01/27/17 1622 by | | D - | "port"); Merged With [facility]; 01/27/17 | Alberto London RN | Discontinued After | | [facility] | (Automatic cleanup per RA | | Discharge | | l Line | 3006--contact admin for | | | | | questions.); 1622 (Automatic | | | | | cleanup per RA 3006--contact | | | | | admin for questions.); Yes; Other | | | | | (comment) ([facility] No; Left; | | | | | Chest | | | +--------+ + + + | RETIRE | 04/24/14; 1130; Yes; Arterial | 04/23/14 1146 by | 04/24/14 1130 by | | D - | line; right, femoral | | Haydee Enrique RN | | Arteri | | | | | al | | | | | Line | | | | +--------+ + + + | RETIRE | 05/08/14; 0846; Yes; Wolf | 04/23/14 1146 by | 05/08/14 0846 by | | D - | | | Bijan Jimenez RN | | [facility] | | | | | y Cath | | [...] +--------+ + + + | RETIRE | 04/27/14; 1100; Wound Vac; | 04/23/14 1147 by | 04/27/14 1100 by | | D - | Midline; Abdomen | | Crystal Paddych, | | Drains | | | RN | | | | | | | (wound | | | | | s/surg | | | | | ical) | | | | +--------+ + + + | RETIRE | 04/26/14; 2240; Yes; Endotracheal | 04/23/14 1319 by | 04/26/14 224 by | | D - | Tube (ETT); Oral; Cuffed | | Lynette Cotto RN | | ETT/Or | | | | | al | | | | | Airway | | | | +--------+ + + + | RETIRE | 04/26/14; 2349; Yes; Oral; X-Ray; | 04/23/14 1454 by | 04/26/14 234 by | | D - | OG; Lip | | Lynette Cotto RN | | Gastri | | | | | c/Feed | | | | | ing | | | | | Tube | | | | +--------+ + + [...] | | | + +--------+ +--------+------+------+ | albumin human (BUMINATE, | Given | 04/24/19 | 500 mL | | | | FLEXBUMIN) 5 % injection | | 15 8:05 | | | | | INTRAPROCEDURE PRN, Starting Wed | | AM PST | | | | | 04/24/14 at 0805, Until Wed | | | | | | | 04/24/14 at 0932 | | | | | | + +--------+ +--------+------+------+ +---+---+ | | | +---+---+ + +-------+ + +---+---+ | ceFAZolin (ANCEF) injection | Given | 04/24/19 | 2,000 mg | | | | intravenous, INTRAPROCEDURE PRN, | | 15 7:50 | | | | | Starting 04/24/14 at 0750, | | AM PST | | | | | Until 04/24/14 at 0932 | | | | | | + +-------+ + +---+---+ +---+---+ | | | +---+---+ + +-------+ +--------+---+---+ | fentaNYL citrate (PF) | Given | 04/24/19 | 50 mcg | | | | (SUBLIMAZE) injection | | 15 9:45 | | | | | INTRAPROCEDURE PRN, Starting Wed | | AM PST | | | | | 04/24/14 at 0755, Until Wed | | | | | | | 04/24/14 at 0932, sedation | | | | | | + +-------+ +--------+---+---+ +-------+ +--------+---+---+ | Given | 04/24/19 | 50 mcg | | | | | 15 9:10 | | | | | | AM PST | | | | +-------+ +--------+---+---+ | Given | 04/24/19 | 50 mcg | | | | | 15 8:51 | | | | | | AM [...] | +---+---+ + +-------+ +------+---+---+ | midazolam (VERSED) injection | Given | 04/24/19 | 2 mg | | | | INTRAPROCEDURE PRN, Starting Wed | | 15 7:45 | | | | | 04/24/14 at 0745, Until Wed | | AM PST | | | | | 04/24/14 at 0932, sedation | | | | | | + +-------+ +------+---+---+ +---+---+ | | | +---+---+ + +-------+ +---------+---+---+ | PHENYLEPHrine 100 mcg/mL | Given | 04/24/19 | 100 mcg | | | | injection (OR syringe) | | 15 7:55 | | | | | intravenous, INTRAPROCEDURE PRN, | | AM PST | | | | | Starting 04/24/14 at 0745, | | | | | | | Until 04/24/14 at 0932 | | | | | | + +-------+ +---------+---+---+ +-------+ +---------+---+---+ | Given | 04/24/19 | 100 mcg | | | | | 15 7:45 | | | | | | AM PST | | | | +-------+ +---------+---+---+ +---+---+ | | | +---+---+ + +-------+ +-------+---+---+ | rocuronium (ZEMURON) injection | Given | 04/24/19 | 50 mg | | | | INTRAPROCEDURE PRN, Starting Wed | | 15 7:55 | | | | | 04/24/14 at 0755, Until Wed | | AM PST | | | | | 04/24/14 at 0932, Neuromuscular | | | | | | | block | | | | | | + +-------+ +-------+---+---+ +---+---+ | | | +---+---+ documented in this encounter
--- OUTSIDE RECORDS SUMMARY | ~2019-03-09 | XMS | Encounter Summary ---
Demographics + + + | Address | [address] | | | [place] [address] | + + + | Home Phone | | + + + | Preferred Language | Unknown | + + + | Marital Status | | + + + | Hinduism Affiliation | Unknown | + + + | Race | Unknown | + + + | Ethnic Group | Unknown | + + + Author + + + | Author | [facility] | | | and [place] | + + + | Organization | [facility] | | | [...] Team Providers + +------+ + | Care Pump House Engineer Name | Role | Phone | + +------+ + PCP | Unavailable | + +------+ + Encounter Details +--------+ + + + + | Date | Type | Department | Care Team | Description | +--------+ + + + + | 04/10/ | Orders Only | [facility] | Conversion | | | 2015 | | CONVERSION [address] | Transaction, | | | | | [address] | Provider Unknown | | | | | [place], [place] | [phone] | | | | | [address] | | | | | | [phone] | | | +--------+ + + + [...]
--- OUTSIDE RECORDS SUMMARY | ~2019-03-09 | XMS | Encounter Summary ---
Demographics + + + | Address | [address] | | | [place] [address] | + + + | Home Phone | | + + + | Preferred Language | Unknown | + + + | Marital Status | | + + + | Catholic Affiliation | Unknown | + + + | Race | Unknown | + + + | Ethnic Group | Unknown | + + + Author + + + | Author | [facility] | | | and [place] | + + + | Organization | [facility] | | | and [...] Team Providers + +------+ + | Care Herb Digger Name | Role | Phone | + +------+ + PCP | Unavailable | + +------+ + Encounter Details +--------+ + + + + | Date | Type | Department | Care Team | Description | +--------+ + + + + | 10/09/ | Hospital | [facility] | Conversion | | | 2016 | Encounter | [facility] | Transaction, | | | | | CLINIC [address] | Provider Unknown | | | | | [place], [place] | | | | | | [phone] | (Fax) | | | | | [phone] | | | +--------+ + + + [...] + + + | Blood Pressure | 108/51 | 10/10/2015 2:11 PM | | | | | PDT | | + + + + + | Pulse | 88 | 10/10/2015 2:11 PM | | | | | PDT | | + + + + + | Temperature | - | - | | + + + + + | Respiratory Rate | - | - | | + + + + + | Oxygen Saturation | - | - | | + + + + + | Inhaled Oxygen | - | - | | | Concentration | | | | + + + + + | Weight | 84 kg (185 lb 3 oz) | 10/10/2015 2:11 PM | | | | | PDT | | + + + + + | Height | 175.3 cm (5' 9") | 10/10/2015 2:11 PM | | | | | PDT | | + + + + + | Body Mass Index | 27.35 | 10/10/2015 2:11 PM | | | | | PDT | | + + + + + documented in this encounter Medications at Time [...] XR CHEST 2 VIEWS | Routin | 10/10/2015 | | Results for this | | | e | 3:04 PM | | procedure are in the | | | | PDT | | results section. | + +--------+ + + + | EXTERNAL LAB: CBC | Routin | 10/10/2015 | | Results for this | | | e | 2:43 PM | | procedure are in the | | | | PDT | | results section. | + +--------+ + + + | PATHOLOGY CONSULT | Routin | 10/10/2015 | | Results for this | | REQUEST | e | 2:43 PM | | procedure are in the | | | | PDT | | results section. | + +--------+ + + + | BASIC METABOLIC | Routin | 10/10/2015 | | Results for this | | PANEL | e | 2:43 PM | | procedure are in the | | | | PDT | | results section. | + +--------+ + + + documented in this encounter Results XR Chest 2 Vws (10/10/2015 3:04 PM PDT) + + | Specimen | + + | | + + + + + | Impressions | Performed At | + + + | 1. Persistent elevation of the right hemidiaphragm. 2. No focal | | | airspace consolidation. | | + + + + + + | Narrative | Performed At | + + + | [facility] ODIL[facility] 1955 60 years Female XR CHEST 2 VIEW FRONTAL AND | | | LATERAL 10/10/2015 3:04 PM INDICATION: Smoking history | | | COMPARISON: 08/05/2015 TECHNIQUE: Two view chest, PA and lateral | | | views FINDINGS: The patient has a left Mediport in place, stable. | | | There continues to be elevation of the right hemidiaphragm relative to | | | the left. A lobulated opacity in the retrocardiac region may signify | | | a hiatal hernia. The cardiomediastinal contours are stable. There is | | | no pneumothorax. There is no pulmonary nodule present. There is no | | | evidence of pulmonary edema. | | + + + + + | Procedure Note | + + | Judson, Rad Conversion - 11/23/2018 9:20 PM PDT MACKENZIE [id number] years FemaleXR | | CHEST 2 VIEW FRONTAL AND LATERAL10/10/2015 3:04 PM INDICATION: Smoking history COMPARISON: | | 08/05/2015 TECHNIQUE: Two view chest, PA and lateral views FINDINGS: The patient has a | | left Mediport in place, stable. There continues to be elevation of the right | | hemidiaphragm relative to the left. A lobulated opacity in the retrocardiac region may | | signify a hiatal hernia. The cardiomediastinal contours are stable. There is no | | pneumothorax. There is no pulmonary nodule present. There is no evidence of pulmonary | | edema. IMPRESSION: 1. Persistent elevation of the right hemidiaphragm.2. No focal | | airspace consolidation. | | PM | |TECHNIQUE: Two view chest, PA and lateral views | | | |FINDINGS: The patient has a left Mediport in place, stable. There continues to be elevation of the right hemidiaphragm relative to the left. A lobulated opacity in the retrocardiac re gion may signify a hiatal hernia. The cardiomediastinal contours are | |stable. There is no pneumothorax. There is no pulmonary nodule present. There is no evidenc e of pulmonary edema. | | | |IMPRESSION: | |1. Persistent elevation of the right hemidiaphragm. | |2. No focal airspace consolidation. | | | | | + + PATHOLOGY CONSULT REQUEST (10/10/2015 2:43 PM PDT) + + + + + + | Component | Value | Ref Range | Performed | Pathologist | | | | | At | Signature | + + + + + + | Pathologist | Comment: Review of CBC | | EXTERNAL | | | Review 1 | collected 10/10/15. I | | LAB | | | | agree with the automated | | | | | | and manual cell counts. | | | | | | The presence of | | | | | | anemia, leukocytosis and | | | | | | thrombophilia is | | | | | | confirmed. Reactive | | | | | | appearing lymphocytes | | | | | | and monocytes are | | | | | | present, suggestive of a | | | | | | reactive process. The | | | | | | RBC's show non-specific | | | | | | morphologic changes. | | | | | | The platelets are | | | | | | increased in number. A | | | | | | portion of the | | | | | | patient's medical | | | | | | records are reviewed. | | | | | | The history of Crohn's | | | | | | disease is noted. | | | | | | Please correlate | | | | | | clinically. Dr. Méndez | | | | | | Backer 10/14/15. | | | | | | AB/bhTesting performed | | | | | | at [facility];[address] [place] [address] | | | | | | Blvd;[place] [address] | | | | + + + + + + + + | Specimen | + + | | + + + +---------+ + + | Performing | Address | City/State/Zipcode | Phone Number | | Organization | | | | + +---------+ + + | EXTERNAL LAB | | | | + +---------+ + + External Lab: RAPHAEL (10/10/2015 2:43 PM PDT) + + +---- + + + | Component | Value | Ref Range | Performed | Pathologist | | | | | At | Signature | + + +---- + + + | WBC | 19.40 (H)Comment: | 3.8 0 - 11.00 | EXTERNAL | | | | Testing performed at | K/u L | LAB | | | | [facility], [address] [facility] | | | | | | [place] | | | | | | [address] | | | | + + +---- + + + | RED CELL | 4.44Comment: Testing | 3.7 0 - 5.10 | EXTERNAL | | | COUNT | performed at [facility], [address] | M/u L | LAB | | | | [place], | | | | | | [place] [address] | | | | + + +---- + + + | Hgb | 9.2 (L)Comment: Testing | 11. 3 - 15.5 | EXTERNAL | | | | performed at [facility], [address] | g/d L | LAB | | | | [place], | | | | | | [place] [address] | | | | + + +---- + + + | Hematocrit, | 33.1 (L)Comment: RESULT | 34. 0 - 46.0 % | EXTERNAL | | | POC | VERIFIEDTesting | | LAB | | | | performed at [facility], [address] | | | | | | [place], | | | | | | [place] [address] | | | | + + +---- + + + | MCV | 74.6 (L)Comment: Testing | 80. 0 - 100.0 fl | EXTERNAL | | | | performed at [facility] [address], [address] | | LAB | | | | [address] [place], | | | | | | [place] [address] | | | | + + +---- + + + | MCH | 20.7 (L)Comment: Testing | 27. 0 - 34.0 pg | EXTERNAL | | | | performed at [facility], [address] | | LAB | | | | [address] [place], | | | | | | [place] [address] | | | | + + +---- + + + | MCHC | 27.7 (L)Comment: Testing | 32. 0 - 35.5 | EXTERNAL | | | | performed at [facility], [address] | g/d L | LAB | | | | [address] [place], | | | | | | [place] [address] | | | | + + +---- + + + | RDW-CV | 62.6 (H)Comment: Testing | 37 - 53 fl | EXTERNAL | | | | performed at [facility], [address] | | LAB | | | | [address] [place], | | | | | | [place] [address] | | | | + + +---- + + + | Platelet | 538 (H)Comment: Testing | 150 - 400 K/uL | EXTERNAL | | | Count | performed at [facility], [address] | | LAB | | | Plasma | [place], | | | | | | [place] [address] | | | | + + +---- + + + | MPV | 7.9Comment: Testing | fl | EXTERNAL | | | | performed at [facility], [address] | | LAB | | | | [place], | | | | | | [place] [address] | | | | + + +---- + + + | Differentia | MANUALComment: Testing | | EXTERNAL | | | l Type | performed at [facility], [address] | | LAB | | | | [place], | | | | | | [place] [address] | | | | + + +---- + + + | Nucleated | 4 (H)Comment: Testing | /10 0WBC | EXTERNAL | | | Red Blood | performed at [facility], [address] | | LAB | | | Cells | [place], | | | | | | [place] [address] | | | | + + +---- + + + | Segmented | 59Comment: Testing | % | EXTERNAL | | | Neutrophils | performed at [facility], [address] | | LAB | | | Manual | [place], | | | | | | [place] [address] | | | | + + +---- + + + | % Bands | 1Comment: Testing | % | EXTERNAL | | | | performed at [facility], [address] | | LAB | | | | [address], | | | | | | [place] [address] | | | | + + +---- + + + | Lymphocytes | 33Comment: Testing | % | EXTERNAL | | | Manual | performed at [facility], [address] | | LAB | | | | [address], | | | | | | [place] [address] | | | | + + +---- + + + | Monocytes | 7Comment: Testing | % | EXTERNAL | | | Manual | performed at [facility], [address] | | LAB | | | | [place], | | | | | | [place] [address] | | | | + + +---- + + + | Absolute | 11.45 (H)Comment: | 1.9 0 - 7.40 | EXTERNAL | | | Neutrophils | Testing performed at | K/u L | LAB | | | | [facility], [address] | | | | | | [place] | | | | | | [address] | | | | + + +---- + + + | Bands | 0.19Comment: Testing | 0.0 0 - 0.20 | EXTERNAL | | | Manual | performed at [facility], [address] | K/u L | LAB | | | | [place], | | | | | | [place] [address] | | | | + + +---- + + + | Absolute | 6.40 (H)Comment: Testing | 1.0 0 - 3.90 | EXTERNAL | | | Lymphocytes | performed at [facility], [address] | [address] | LAB | | | | [address], | | | | | | [place] [address] | | | | + + +---- + + + | Absolute | 1.36 (H)Comment: Testing | 0.0 0 - 0.80 | EXTERNAL | | | Monocytes | performed at [facility], [address] | [address] | LAB | | | | [address] [place], | | | | | | [place] [address] | | | | + + +---- + + + | Platelet | INCREASEDComment: | | EXTERNAL | | | Estimate | Testing performed at | | LAB | | | | [facility] [address], [address] | | | | | | [place] | | | | | | [address] | | | | + + +---- + + + | RBC | 2+Comment: | | EXTERNAL | | | Morphology | ANISO1+POIK1+POLY3+HYPO2 | | LAB | | | | +MICRO1+TARGETNORMAL PLT | | | | | | MORPHTesting performed | | | | | | at [facility] [address], [address] | | | | | | [place], | | | | | | [place] [address] | | | | | |3+ | | | | | |HYPO | | | | | |2+ | | | | | |MICRO | | | | | |1+ | | | | | |TARGET | | | | | |NORMAL PLT MORPH | | | | | |Testing performed at [facility], [address] [facility] [place] [address] | | | | | | | | | | + + +---- + + + | Differentia | SLIDE REFERRED TO | | EXTERNAL | | | l Comments | PATHOLOGIST FOR REVIEW | | LAB | | | | AND COMMENTComment: | | | | | | Testing performed at | | | | | | [facility], [address] [place] [address] | | | | | | [place] | | | | | | [address] | | | | + + +---- [...] + +---------+ + + Basic Metabolic Panel (10/10/2015 2:43 PM PDT) + + + + + + | Component | Value | Ref Range | Performed | Pathologist | | | | | At | Signature | + + + + + + | Na | 140Comment: NOTE NEW | 135 - 145 | EXTERNAL | | | | REFERENCE RANGETesting | mmol/L | LAB | | | | performed at [facility], [address] | | | | | | [place], | | | | | | [place] [address] | | | | + + + + + + | K | 4.7Comment: SPECIMEN | 3.5 - 4.9 | EXTERNAL | | | | SLIGHTLY | mmol/L | LAB | | | | HEMOLYZEDTesting | | | | | | performed at [facility], [address] | | | | | | [address], | | | | | | [place] [address] | | | | + + + + + + | Cl | 109Comment: Testing | 99 - 109 mmol/L | EXTERNAL | | | | performed at [facility], [address] | | LAB | | | | [address], | | | | | | [place] [address] | | | | + + + + + + | CO2 | 23Comment: Testing | 23 - 32 mmol/L | EXTERNAL | | | | performed at [facility], [address] | | LAB | | | | [address], | | | | | | [place] [address] | | | | + + + + + + | Anion Gap | 13Comment: Testing | 5 - 20 mmol/L | EXTERNAL | | | | performed at [facility], [address] | | LAB | | | | [address], | | | | | | [place] [address] | | | | + + + + + + | Glucose, | 89Comment: SPECIMEN | 65 - 99 mg/dL | EXTERNAL | | | Fasting | SLIGHTLY | | LAB | | | | HEMOLYZEDTesting | | | | | | performed at [facility], [address] | | | | | | [address], | | | | | | [place] [address] | | | | + + + + + + | BUN | 21Comment: Testing | 8 - 25 mg/dL | EXTERNAL | | | | performed at [facility], [address] | | LAB | | | | [address], | | | | | | [place] [address] | | | | + + + + + + | Creatinine | 0.9Comment: SPECIMEN | 0.50 - 1.00 | EXTERNAL | | | | SLIGHTLY | mg/dL | LAB | | | | HEMOLYZEDTesting | | | | | | performed at [facility], [address] | | | | | | [address], | | | | | | [place] [address] | | | | + + + + + + | BUN/Creatin | 23Comment: Testing | | EXTERNAL | | | ine Ratio | performed at [facility], [address] | | LAB | | | | [address], | | | | | | [place] [address] | | | | + + + + + + | Calcium | 9.0Comment: Testing | 8.5 - 10.5 | EXTERNAL | | | | performed at [facility], [address] | mg/dL | LAB | | | | [address], | | | | | | [place] [address] | | | | + + + [...] | | | | | | at [facility], [address] | | | | | | [place], | | | | | | [place] [address] | | | | + + + [...]
--- OUTSIDE RECORDS SUMMARY | ~2019-03-09 | XMS | Encounter Summary ---
Demographics + + + | Address | [address] | | | [place] [address] | + + + | Home Phone | | + + + | Preferred Language | Unknown | + + + | Marital Status | | + + + | Episcopalian Affiliation | Unknown | + + + | Race | Unknown | + + + | Ethnic Group | Unknown | + + + Author + + + | Author | [facility] | | | and [place] | + + + | Organization | [facility] | | | [...] Team Providers + +------+ + | Care Holistic Nutritionist Name | Role | Phone | + [...] Unknown | | | | | [place], [place] | [phone] | | | | | [address] | | | | | | [phone] | | | +--------+ + + + [...]
--- OUTSIDE RECORDS SUMMARY | ~2019-03-09 | XMS | Encounter Summary ---
Demographics + + + | Address | [address] | | | [place] [address] | + + + | Home Phone | | + + + | Preferred Language | Unknown | + + + | Marital Status | | + + + | Latter Day Affiliation | Unknown | + + + | Race | Unknown | + + + | Ethnic Group | Unknown | + + + Author + + + | Author | [facility] | | | and [place] | + + + | Organization | [facility] | | | [...] Team Providers + +------+ + | Care Post Anesthesia Care Unit Nurse Name | Role | Phone | + [...] | | | | | [place] | [phone] | | | | | [address] | | | | | | [phone] | | | +--------+ + + + [...]
--- OUTSIDE RECORDS SUMMARY | ~2019-03-09 | XMS | Encounter Summary ---
Demographics + + + | Address | [address] | | | [place] [address] | + + + | Home Phone [...] + + + | Author | [facility] | + + + | Organization | [facility] | + + + | Address | Unknown | + + + | Phone | Unavailable | + + + Support + + + + + | Name | Relationship | Address | Phone | + + + + + | Kole Willingham | [place] | [address] | | | | | [place], [place] | | | | | [address] | | + + + + + | Cami Sawyer | ECON | Unknown | | + + + + + Care Team Providers + +------+ + | Care Certified Welding Inspector Name | Role | Phone | [...] | | 2016 | | Center at [facility] [address] | | - General | | | | [address] | | | | | | Mailcode: Center | | | | | | [facility] and | | | | | | [facility] [address] | | | | | | [place], [place] | | | | | | [address] | | | | | | [phone] | | | +--------+ + + + [...]
--- OUTSIDE RECORDS SUMMARY | ~2019-03-09 | XMS | Encounter Summary ---
Demographics + + + | Address | [address] | | | [place] [address] | + + + | Home Phone | | + + + | Preferred Language | Unknown | + + + | Marital Status | | + + + | Taoist Affiliation | NRP | + + + | Race | White | + + + | Ethnic Group | Not or | + + + Author + + + | Author | [facility] | + + + | Organization | [facility] | + + + | Address | Unknown | + + + | Phone | Unavailable | + + + Support + + + + + | Name | Relationship | Address | Phone | + + + + + | Kole Willingham | [place] | [address] | | | | | [place], [place] | | | | | [address] | | + + + + + | Cami Sawyer | ECON | Unknown | | + + + + + Care Team Providers + +------+ + | Care Assistant Field Hockey Coach Name | Role | Phone | + [...] | Crohn's | Neel Vega MD | [address] | | | | | disease of | [place] | [address] | | | | | both small | HOSP[facility] | [place] | | | | | and large | CARE CLINIC | [place], [place] | | | | | intestine | [address] | [address] | | | | | without | [address] | Phone: | | | | | complication | [place], | [phone] | | | | | s | [place] [address] | Fax: | | | | | | Phone: | [phone] | | | | | | [phone] | | | | | | | Fax: | | | | | | | [phone] | | +--------+--------+ + + + + Encounter Details +--------+---------+ + + + | Date | Type | Department | Care Team | Description | +--------+---------+ + + + | 07/27/ | Office | Digestive Health | Trice Marie MD | Rectovaginal fistula | | 2016 | Visit | Center at [facility] [address] | [address] | (Primary Dx); | | | | [address] | [place], | Crohn's disease of | | | | Mailcode: [place] | [place] [address] | both small and large | | | | for Health and | [phone] | intestine with | | | | Healing, [address] | | complication (HCC) | | | | [place], [place] | | | | | | [address] | | | | | | [phone] | | | +--------+---------+ + + + [...] Dimple in her vagina seen by her DIRECTOR SPEECH ~1995 For fibroids and vaginal bleeding, she [...] Referral patient, I spent 62 minutes of [id number] time, of which more than half the [...] colonos copy was this past month at [facility] in [facility] with Dr. Krishna, which per patient was [...] alcohol or use illicit drugs. Lives in [place] with her . FH: Family History: None [...] Recommendations: 1) Review outside colonoscopy completed at [facility] - request has been sent 2) Plan for flex sig locally in [place] in 8 weeks time. Patient to send [...] | + +--------+ + + + | CO ANOSCOPY, DIAG | Routin | 08/04/2015 | [...]
--- OUTSIDE RECORDS SUMMARY | ~2019-03-09 | XMS | Encounter Summary ---
Demographics + + + | Address | [address] | | | [place] [address] | + + + | Home Phone | | + + + | Preferred Language | Unknown | + + + | Marital Status | | + + + | Episcopal Affiliation | Unknown | + + + | Race | Unknown | + + + | Ethnic Group | Unknown | + + + Author + + + | Author | [facility] | | | and [place] | + + + | Organization | [facility] | | | [...] Team Providers + +------+ + | Care Tube Dispatcher Name | Role | Phone | + +------+ + PCP | Unavailable | + +------+ + Encounter Details +--------+ + + + + | Date | Type | Department | Care Team | Description | +--------+ + + + + | 10/09/ | Hospital | [facility] | Conversion | | | 2016 | Encounter | [facility] | Transaction, | | | | | [address] | Provider Unknown | | | | | [place], [place] | | | | | | [address] | (Fax) | | | | | [phone] | | | +--------+ + + + [...]
--- OUTSIDE RECORDS SUMMARY | ~2019-03-09 | XMS | Encounter Summary ---
Demographics + + + | Address | [address] | | | [place] [address] | + + + | Home Phone | | + + + | Preferred Language | Unknown | + + + | Marital Status | | + + + | Rastafari Affiliation | Unknown | + + + | Race | Unknown | + + + | Ethnic Group | Unknown | + + + Author + + + | Author | [facility] | | | and [place] | + + + | Organization | [facility] [...] Team Providers + +------+ + | Care Toll Line Inspector Name | Role | Phone | + +------+ + PCP | Unavailable | + +------+ + Encounter Details +--------+ + + + + | Date | Type | Department | Care Team | Description | +--------+ + + + + | 03/01/ | [facility] | [facility] | Conversion | | | 2017 | Encounter | [facility] | Transaction, | | | | | [address] | Provider Unknown | | | | | [place], [place] | | | | | | [address] | (Fax) | | | | | [phone] | | | +--------+ + + + [...] [address] | | | | | | [place] [address] | | | | | | [phone] | | | | | | | | +--------+---------+ + + + documented as of this encounter Visit Diagnoses Not on filedocumented in this encounter"
--- OUTSIDE RECORDS SUMMARY | ~2019-03-09 | XMS | Encounter Summary ---
Demographics + + + | Address | [address] | | | [place] [address] | + + + | Home Phone | | + + + | Preferred Language | Unknown | + + + | Marital Status | | + + + | Religion Affiliation | Unknown | + + + | Race | Unknown | + + + | Ethnic Group | Unknown | + + + Author + + + | Author | [facility] | | | and [place] | + + + | Organization | [facility] | | | [...] Team Providers + +------+ + | Care Office Coordinator Name | Role | Phone | + +------+ + PCP | Unavailable | + +------+ + Encounter Details +--------+ + + + + | Date | Type | Department | Care Team | Description | +--------+ + + + + | 03/07/ | Hospital | [facility] | SahraCynthiaay Zoila, | Rectovaginal | | 2017 - | Encounter | [facility] [address] | MD Gaby SINGH | fistula; Crohn's | | | | [address] | [address] | disease of large | | 03/12/ | | [place], [place] | [place] [address] | intestine with | | 2017 | | [address] | [phone] | complication (HCC) | | | | [phone] | | | +--------+ + + + [...] 0751 Date of Service: 03/12/1746 Status: Signed Running Instructor: JENARO Mathew (Nurse Practitioner) [facility] Service: Colon & Rectal Surgery Discharge [...] Humirabeing seen by Dr. She CLAYTON in [place]. She previously underwent a small bowel resection [...] She was then recommended to go to [place] for a second opinio n. She never went to [place] due to the trip being a hardship [...] a open colostomy with Dr. Bocanegra. Si [facility] surgery she has recovered slowly. She is tolerating a general diet without N/V. Her co lostomy is passing gas and stool. Oral pain medications are managing the patients pain. e is ambulatory. Vitals and labs are stable. The patient is ready for discharge. Past Medical History Diagnosis Date CHF (congestive heart failure) (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) Crohn's disease ([facility]) Deep vein thrombosis (DVT) ([facility]) right leg and then travelled to [facility] Depression E-coli UTI Embolism and thrombosis of splenic artery Gastroesophageal reflux disease with hiatal hernia GERD (gastroesophageal reflux disease) Hemorrhage of gastrointestinal tract, unspecified Hypertension Hypokalemia 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) Joint pain Microcytic anemia Neuromuscular disorder ([facility]) left leg numbness, severe tingling, shooting pain down leg Neuropathy On total parenteral nutrition (TPN) Osteoporosis Other chronic pain Pyelonephritis Recurrent aphthous ulcer Sepsis (HCC) Past Surgical History Procedure Laterality Date ABDOMINAL SURGERY ANAL FISTULA SETON PLACEMENT N/A 10/17/2015 Procedure: ANAL FISTULA SETON PLACEMENT; Surgeon: Enrique Bocanegra MD; Location: [facility] M AIN OR; Service: General; Laterality: N/A; APPENDECTOMY CHOLECYSTECTOMY COLOSTOMY N/A 03/07/2017 Procedure: COLOSTOMY; Surgeon: Enrique Bocanegra MD; Location: [facility] OR; Service: G eneral; Laterality: N/A; ESOPHAGOGASTRODUODENOSCOPY Left 08/06/2015 Procedure: ESOPHAGOGASTRODUODENOSCOPY; Surgeon: Sheng Rios MD; Location: [facility] ENDOSCOPY; Service: Gastroenterology; Laterality: Left; ESOPHAGOGASTRODUODENOSCOPY N/A 04/21/2014 Procedure: ESOPHAGOGASTRODUODENOSCOPY; Surgeon: Bony Petty MD; Location: [facility] BEDSIDE PROCEDURE; Service: Gastroenterology; Laterality: N/A; HYSTERECTOMY LAPAROTOMY N/A 04/23/2014 Procedure: EXPLORATION - LAPAROTOMY; Surgeon: Bogdan Moser DO; Location: [facility] MAIN O R; Service: General; Laterality: N/A; LYSIS OF ADHESIONS PORTACATH PLACEMENT Left SMALL INTESTINE SURGERY SPLENECTOMY, TOTAL N/A 04/23/2014 Procedure: SPLENECTOMY; Surgeon: Bogadn Moser DO; Location: [facility] MAIN OR; Service: General; Laterality: N/A; [...] Change midline dressing and ostomy appliance with ostomy/milk handler prior to discharge Discharge home Disposition: Home Condition: Stable Code Status: Full Code No discharge procedures on file. Follow up: JENARO Mathew [address] [place] [phone] Schedule an appointment as soon as possible [...] 1422 Date of Service: 03/12/171414 Status: Signed Running Instructor: Catracho Almaguer RN (Registered Nurse) [facility] Service: Ostomy Care Consult Note Hospital [...] 03/12/2017 6:38 AM PST Progress Notes by Lsahawn Valdez RN at 03/12/17637 Author: Lashawn Valdez RN Service: (none) Author Type: Registered Nurse Filed: 03/12/17637 Date of Service: 03/12/17637 Status: Signed Running Instructor: Lashawn Valdez RN (Registered Nurse) Dr mckeon in room to examine patient. onver roshan Transaction, Provider Unknown - 03/12/2017 6:19 AM PST Progress Notes by Lashawn Valdez RN at 03/12/17618 Author: Lashawn Valdez RN Service: (none) Author Type: Registered Nurse Filed: 03/12/17625 Date of Service: 03/12/17618 Status: Signed Running Instructor: Lashawn Valdez RN (Registered Nurse) Patient is [...] Wound/Ostomy Care Author Type: Registered Nurse Filed: 03/11/170 Date of Service: 03/11/171630 Status: Signed Running Instructor: Catracho Almaguer RN (Registered Nurse) [facility] Service: Ostomy Care Consult Note Hospital [...] Notes by Brooke Hawkins RD at 03/11/17 0470 Author: Brooke Hawkins RD Service: (none) Author Type: Registered Dietitian Filed: 03/11/17 7087 Date of Service: 03/11/171449 Status: Signed Running Instructor: Brooke Hawkins RD (Registered Dietitian) 03/11/17 8363 Subjective Timepoint Follow up Pt c/o In [...] Date of Service: 03/11/17 1306 Status: Signed Running Instructor: Kat Salter RN (Registered Nurse) Discharge plan- patient will be able to return home with family when medically ready. CM ma de an ostomy appt for her on 03/16/17 at 0915. Information added to AVS. KAT SALTER RN Case Management [phone] onver roshan Transaction, Provider Unknown - 03/11/2017 12:28 PM PST Therapy Progress Note by Moses Pathak PTA at 03/11/17 1228 Author: Moses Pathak PTA Service: (none) Author Type: Marshmallow Runner Filed: 03/11/17 1232 Date of Service: 03/11/17 1228 Status: Signed Running Instructor: Moses Pathak PTA (Marshmallow Runner) 03/11/17 1228 PT Last Visit PT Received [...] Author: Dorina Jang Service: (none) Author Type: Scada Technician Filed: 03/11/17 1136 Date of Service: 03/11/171126 Status: Signed Running Instructor: Dorina Jang (Scada Technician) Referral from RN to assess for emotional/spiritual [...] ostomy bag was leaking. Plan: Let pm faucets assembler know and revisit her later today. Would benefit from faucets assembler suppo rt and a bit of reframing her life going forward. Chaplain Sue KUNZ onver roshan Transaction, Provider Unknown - 03/11/2017 10:50 AM PST Nurse Progress Note by Catracho Almaguer RN at 03/11/17 1050 Author: Catracho Almaguer RN Service: Wound/Ostomy Care Author Type: Registered Nurse Filed: 03/11/17 1100 Date of Service: 03/11/17 1050 Status: Signed Running Instructor: Catracho Almaguer RN (Registered Nurse) Ostomy nurse [...] 03/11/1748 Date of Service: 03/11/17944 Status: Signed Running Instructor: Evita Sheldon MD (Physician) [facility] Service: Hospitalist Progress Note Pt: Smita Willingham AGE/SEX: 61 y.o. female ROOM: [address] [place] [address]- : 1955 PCP: No primary care provider [...] Infusions lactated ringers 50 mL/hr at 03/10/17 8401 PRN Medications [DISCONTINUED] acetaminophen OR acetaminophen, diphenhydrAMINE [...] MD, FACP 03/11/2017 9:45 AM Dictation software, Campus Shift, used which may contain error for similar sounding words even af ter review. Personal communication requested for any clarification. Portions of this chart may have been copied from previous notes for continuity of care purp ose Jordon Hauser ARNP - 03/11/2017 7:45 AM PST . Progress Notes by JENARO Mathew at 03/11/1744 Author: JENARO Mathew Service: General Surgery Author Type: Nurse Practitionying enciso Filed: 03/11/17 7818 Date of Service: 03/11/1784 Status: Signed Running Instructor: JENARO Mathew (Nurse Practitioner) [facility] Service: Colon & Rectal Surgery Progress [...] Date of Service: 03/11/17 010 Status: Signed Running Instructor: Lashawn Valdez RN (Registered Nurse) Report given [...] Date of Service: 03/10/17 1520 Status: Signed Running Instructor: Aniceto Chen PT (Physical Therapist) 03/10/17 1520 PT Last Visit PT Received On 03/10/17 Reason for Treatment Other (comment) (s/p end colostomy) Requires PT Follow Up Awaiting tx order Follow up PT Only? No Focus for Next Treatment Transfer Technique PT Eval/Reassessment Date 03/10/17 Assistance Required 1 person Dry Cleaning Supervisor Needed No Precautions Other Precautions new colostomy [...] Date of Service: 03/10/17 1520 Status: Signed Running Instructor: Aniceto Chen PT (Physical Therapist) 03/10/17 1520 PT Last Visit PT Received On 03/10/17 Reason for Treatment Other (comment) (s/p end colostomy) Requires PT Follow Up Awaiting tx order Follow up PT Only? No Focus for Next Treatment Transfer Technique PT Eval/Reassessment Date 03/10/17 Assistance Required 1 person Dry Cleaning Supervisor Needed No Home Environment Type of Home Home one story Home Exterior Layout 1-3 steps (1 entry step) Home Equipment Walker front wheeled Prior Function Level of [place] Independent with functional mobility;Independent with ADLs Falls in Past Year No Lives With Spouse Employment Retired for age Comments pt is a 61 y/o female s/p lysis of adhesions and end colostomy. She lives in [place] with her spouse in a single story [...] Note by Catracho Almaguer RN at 03/10/17 044 Author: Catracho Almaguer RN Service: Wound/Ostomy Care Author Type: Registered Nurse Filed: 03/10/170 Date of Service: 03/10/171312 Status: Signed Running Instructor: Catracho Almaguer RN (Registered Nurse) Ostomy nurse [...] Author: LEVI Borrego Service: (none) Author Type: Detective Investigator Filed: 03/10/17 1313 Date of Service: 03/10/17 1312 Status: Signed Running Instructor: LEVI Borrego (Detective Investigator) Discharge planning: Pt return home with outpt ostomy care. CM entered sticky note for Dr to sign referrral. Evita Caraballo MD - 03/10/2017 10:41 AM PST Progress Notes by Evita Sheldon MD at 03/10/17 1041 Author: Evita Sheldon MD Service: Hospitalist Author Type: Physician Filed: 03/10/17 1101 Date of Service: 03/10/17 1041 Status: Signed Running Instructor: Evita Sheldon MD (Physician) [facility] Service: Hospitalist Progress Note Pt: Smita Willingham AGE/SEX: 61 y.o. female ROOM: [address] [place] [address] : 1955 PCP: No primary care provider [...] MD, FACP 03/10/2017 10:41 AM Dictation software, Campus Shift, used which may contain error for similar [...] 03/10/17822 Date of Service: 03/10/17820 Status: Signed Running Instructor: JENARO Mathew (Nurse Practitioner) [facility] Service: Colon & Rectal Surgery Progress [...] eval and treat, please encourage ambulation -D/C CLAIMS COLLECTOR, percocet and dilaudid for pain -General diet [...] 03/10/17505 Date of Service: 03/10/17502 Status: Signed Running Instructor: Angeles Tao RN (Registered Nurse) Pt very lethargic at start of shift with gradual improvement over the course of the night. Reports no pain when not moving but continues to push CLAIMS COLLECTOR button often. Colostomy producing green liquid stool [...] 03/09/172007 Date of Service: 03/09/171956 Status: Signed Running Instructor: Gris Yee RN (Registered Nurse) Pt continues to c/o pain but respiration drop down to 4-9 with CLAIMS COLLECTOR. CLAIMS COLLECTOR is stopped. Pt is a waken to [...] 1716 Date of Service: 03/09/171619 Status: Signed Running Instructor: Linnea Lezama RN (Registered Nurse) 03/09/17 5244 Discharge Planning Evaluation Admitting Diagnosis Chron's disease, [...] of Home Care Services Other (Comment) ([facility] for TPN) Mental Status Oriented;Other (comment) (Lethargic) Resources Financial concerns No Transportation issues No Patient/Family concerns No Prescription Plan Yes Name of Pharmacy [facility] in [place] Ostomy/Drains/Appliances Yes (New Colostomy) Anticipated Disposition Facility Type Home Met with pt who was oriented, but lethargic at this time, and discussed discharge planning, Pt is a 61 y.o., female who lives at home with her in [place], [place]. Pt is indepen dent with ADLs and mobility. Uses a cane and walker only as needed. Pt is currently set up with [facility] for TPN. Pt is on coumadin and follow up at the coumadin clinic in [place], [place]. Pt is not on home O2 [...] 03/09/17953 Date of Service: 03/09/17929 Status: Signed Running Instructor: Jaz Gonzáles PT (Physical Therapist) 03/09/17929 PT [...] 03/09/17927 Date of Service: 03/09/17915 Status: Signed Running Instructor: Evita Sheldon MD (Physician) [facility] Service: Hospitalist Progress Note Pt: Smita Willingham AGE/SEX: 61 y.o. female ROOM: [address] [place] [address] : 1955 PCP: No primary care provider [...] MD, FACP 03/09/2017 9:16 AM Dictation software, Campus Shift, used which may contain error for similar [...] 1057 Date of Service: 03/09/17908 Status: Signed Running Instructor: JENARO Mathew (Nurse Practitioner) [facility] Service: Colon & Rectal Surgery Progress Note Hospital Day: LOS: 2 days Post-Op Day: 1 Day Post-Op SUBJECTIVE Patient Summary: 61 y.o. female with Chron's and anovaginal fistulas SP colostomy Events Overnight: Pt complains of nausea this morning. Abdominal pain is controlled with CLAIMS COLLECTOR. Colostomy noted with liquid stool and gas [...] to eval and treat, encourage ambulation -Continue CLAIMS COLLECTOR for pain management -Continue CLD per ERAS [...] 0659 Date of Service: 03/09/17655 Status: Signed Running Instructor: Ruma Guerra RN (Registered Nurse) Notified Dr. Bocanegra of HGB 6.9, orders to transfuse 1 unit of blood. Informed MD that pt continue to be lethargic throughout night but easily arousable. ETCO2 up to 65 at times. Re spiratory came up to do STAT ABG, results came back normal, pt compensated. Will possibly d /c CLAIMS COLLECTOR this AM pending MD decision. Will inform day shift RN. onver roshan Transaction, Provider Unknown - 03/09/2017 4:57 AM PST Progress Notes by Ruma Guerra RN at 03/09/17456 Author: Ruma Guerra RN Service: (none) Author Type: Registered Nurse Filed: 03/09/17 0503 Date of Service: 03/09/17456 Status: Signed Running Instructor: Ruma Guerra RN (Registered Nurse) Pt been lethargic but alert and oriented x 4 when pt asked orientation questions. Pt states "I feel like I am getting the flu, my body ache and I feel tired all the time" Vitals WNL, pain managed by CLAIMS COLLECTOR pump. Incontinent of urine. Does not want to get out of bed. Will contin ue to monitor. onver roshan Transaction, Provider Unknown - 03/08/2017 11:43 AM PST Progress Notes by Chata Guadalupe RD at 03/08/17 1143 Author: Chata Guadalupe RD Service: (none) Author Type: Registered Dietitian Filed: 03/08/17 1144 Date of Service: 03/08/17 114 Status: Signed Running Instructor: Chata Guadalupe RD (Registered Dietitian) 03/08/17 1124 [...] note reports pt was on "TPN from [facility] in [place]: 275 g Dextrose, 90 g AA, 40 [...] Estimated Energy Needs Total Energy Estimated Needs 5255-6407 kcal/day Method for Estimating Needs 25-30 kcal/kg [...] up date 03/11/[address] [facility] Jordon zhu ARNP - 03/08/2017 11:25 AM PST Progress Notes by JENARO Mathew at 03/08/17 2097 Author: JENARO Mathew Service: General Surgery Author Type: Nurse Jennifer enciso Filed: 03/08/17 6800 Date of Service: 03/08/17 2170 Status: Signed Running Instructor: JENARO Mathew (Nurse Practitioner) [facility] Service: Colon & Rectal Surgery Progress Note Hospital Day: LOS: 1 day Post-Op Day: 1 Day Post-Op SUBJECTIVE Patient Summary: 61 y.o. female with Chron's and anovaginal fistulas SP colostomy Events Overnight: Doing well. She complains of nausea this morning but better now. Abdominal pain is controlled with CLAIMS COLLECTOR. white sidewall tire buffer changed midline dressing, and ostomy appli ance. [...] recommendations -PT to eval and treat -Continue CLAIMS COLLECTOR for pain management -Continue CLD per ERAS [...] 1032 Date of Service: 03/08/171016 Status: Signed Running Instructor: Evita Sheldon MD (Physician) [facility] Service: Hospitalist Progress Note Pt: Smita Willingham AGE/SEX: 61 y.o. female ROOM: [address] [place] [address] : 1955 PCP: No primary care provider [...] MD, FACP 03/08/2017 10:17 AM Dictation software, Campus Shift, used which may contain error for similar [...] 03/08/1738 Date of Service: 03/08/17736 Status: Signed Running Instructor: Jazmyn Beard RN (Registered Nurse) Infection Prevention [...] 03/07/171503 Date of Service: 03/07/171503 Status: Signed Running Instructor: Sofía Chamberlain RPH (Pharmacist) Clinical Pharmacy Note: [...] Note by Vernell Tovar RN at 03/07/17 164 Author: Vernell Tovar RN Service: (none) Author Type: Registered Nurse Filed: 03/07/17 1415 Date of Service: 03/07/171412 Status: Signed Running Instructor: Melveyne Tovar, RN (Registered Nurse) Called anesthesia and informed of pt's frequent PVCs but pt denies chest pain or SOB. BP 14 8/69, heart rate 88-90 bpm. Per anesthesia, pt was also having PVCs in the OR. Anesthesia st ates that she will talk with Dr. Bocanegra for an order for pt to be on ceramic design engineer on t he floor. Vernell Tovar RN [...] Mar 12 2017 7:39AM Referring Provider Line: [phone] ID: | | | 109 | | [...] Mar 12 2017 7:39AM Referring Provider Line: [phone] ID: | | 109 | |Lungs/Pleura: Right [...] Mar 12 2017 7:39AM Referring Provider Line: [phone] ID: [id number] | + + External Lab: [...] | | | | | | at [facility], [address] | | | | | | [facility], | | | | | | [place] [address] | | | | | |2+ | | | | | |POIK | | | | | |3+ | | | | | |ANISO | | | | | |NORMAL PLT MORPH | | | | | |Testing performed at [facility], [address] [place] [address] | | | | | | | [...] | | | | | performed at [facility], [address] | | | | | | [address]un [address], | | | | | | [place] [address] | | | | + + + [...] | | | | | performed at [facility], [address] | | | | | | Shun Noah, | | | | | | [place] [address] | | | | + + + [...] | | | | | performed at [facility], [address] | | | | | | [address]un Singh, | | | | | | [place] [address] | | | | + + + [...] | | | | | performed at [facility], [address] | | | | | [address], | | | | | | [place] [address] | | | | + + + [...] EXTERNAL | | | | performed at [facility], [address] | | LAB | | | | Shun Singh, | | | | | | [place] [address] | | | | + + + [...] EXTERNAL | | | | performed at [facility], [address] | | LAB | | | | Shun Singh, | | | | | | [place] [address] | | | | + + + [...] | | | | | | at [facility], [address] | | | | | | [facility], | | | | | | [place] [address] | | | | + + + [...] | | | | | | at [facility], [address] | | | | | | [facility], | | | | | | [place] [address] | | | | | |3+ | | | | | |HYPO | | | | | |NORMAL PLT MORPH | | | | | |Testing performed at [facility], [address] [facility], [place] [address] | | | | | | | [...] EXTERNAL | | | | performed at [facility], [address] | | LAB | | | | Shun Singh, | | | | | | [place] [address] | | | | + + + [...] | | | | | [place] [address] | | | | + + + [...] | | | | | | at [facility], [address] | | | | | | Shun Zam[address], | | | | | | [place] [address] | | | | + + + [...] Singh, | | | | | | [place] [address] | | | | + + + [...] | | | | | performed at [facility];[address] | | | | | | [address];[place], [place] | | | | | | [address] | | | | + + + [...] | | | | | performed at [facility], [address] | | | | | | [facility], | | | | | | [place] [address] | | | | | |TARGET | | | | | |NORMAL PLT MORPH | | | | | |Testing performed at [facility], [address] [facility] [place] [address] | | | | | | | [...] EXTERNAL | | | | performed at [facility], [address] | | LAB | | | | Shun Singh, | | | | | | [place] [address] | | | | + + + [...] EXTERNAL | | | | performed at [facility], [address] | | LAB | | | | Shun Singh, | | | | | | [place] [address] | | | | + + + [...] | | | | | | at [facility], [address] | | | | | | Shun Singh, | | | | | | [place] [address] | | | | + + + [...] | | | | | | at [facility], [address] | | | | | | [place], | | | | | | [place] [address] | | | | | |2+ | | | | | |TARGET | | | | | |NORMAL PLT MORPH | | | | | |Testing performed at [facility], [address] [facility], [place] [address] | | | | | | | [...] EXTERNAL | | | | performed at [facility], [address] | | LAB | | | | Shun Singh, | | | | | | [place] [address] | | | | + + + [...] EXTERNAL | | | | performed at [facility], [address] | | LAB | | | | Shun Singh, | | | | | | [place] [address] | | | | + + + [...] Gertrude, | | | | | | [place] [address] | | | | + + + [...] | | | | | performed at [facility] | | | | | | [facility];[place], [place] | | | | | | [address] | | | | + + + [...] | | | | | | at [facility];[address] [place] [address] | | | | | | Gertrude;[place] [address] | | | | | |HYPO | | | | | |1+ | | | | | |TARGET | | | | | |NORMAL PLT MORPH | | | | | |Testing performed at [facility];[address] [facility] [address] | | | | | | | [...] EXTERNAL | | | | performed at [facility];[address] | | LAB | | | | [address];[place], [place] | | | | | | [address] | | | | + + + [...] EXTERNAL | | | | performed at [facility] | | LAB | | | | Torsten [facility];[place], [place] | | | | | | [address] | | | | + + + [...] | | | | | | at [facility];[address];[place] [address] | | | | + + + [...] | | | Fingerstick | performed at [facility];[address] | | LAB | | | | Torsten Singh;[place] | | | | | | [address] | | | | + + + [...]
--- OUTSIDE RECORDS SUMMARY | ~2019-03-09 | XMS | Encounter Summary ---
Demographics + + + | Address | [address] | | | [place] [address] | + + + | Home Phone | | + + + | Preferred Language | Unknown | + + + | Marital Status | | + + + | Judaism Affiliation | Unknown | + + + | Race | Unknown | + + + | Ethnic Group | Unknown | + + + Author + + + | Author | [facility] | | | and [place] | + + + | Organization | [facility] | | [...] Team Providers + +------+ + | Care Packing Room Supervisor Name | Role | Phone | + +------+ + PCP | Unavailable | + +------+ + Encounter Details +--------+ + + + + | Date | Type | Department | Care Team | Description | +--------+ + + + + | 11/05/ | Hospital | [facility] | Gina Haines DO | Chest pain, | | 2015 - | Encounter | [facility] | [address] | unspecified chest | | | | CARE [address]LO[address] | [place] [address] | pain type; | | 11/10/ | | [address] | [phone] | Pyelonephritis; | | 2014 | | [place], [place] | | Acute nonintractable | | | | [address] | | headache, | | | | [phone] | | unspecified headache | | | [...] 010 Date of Service: 11/10/141007 Status: Signed Network Cabler: Rosmery Oden MD (Physician) [facility] Service: Hospitalist Discharge Summary Date of Admission: [...] who was admitted as a transfer from [facility] due to sepsis and altered mental status. [...] Vancomycin and she was then transferred to [facility]. Upon arr ival she was febrile and [...] primary care physician about referral to a Search Engine Optimizer at [facility] for further evaluation of Chohn's Disease. Discuss [...] Follow up: Neel Fernandes MD [address] [place] [address] [place] [address] In 4 days As scheduled. Medication List [...] are the prescriptions that you need to pick pack worker. You may get the following medications from [...] Service: Hospitalist Author Type: Physician Filed: 11/09/14 8444 Date of Service: 11/09/141445 Status: Signed Network Cabler: Rosmery Oden MD (Physician) [facility] Service: Hospitalist Progress Note Mackenzie Willingham 59 y.o. [id number] - female Neel Fernandes (General) Hospital Day: LOS: 4 days SUBJECTIVE Patient Summary: Patient is a 59 year old female with past medical history of COPD, Crohn's Disease, HTN, Hi story of Spelnic Vein Thrombosis and Immunosuppression due to Steroids and Remicade who was admitted as a transfer from [facility] due to sepsis and altered mental status. Apparently, she developed nausea, vomiting and diarrhea for four days and was very lethargic . Her has been giving all her medications including narcotics Oxycodone Morphine sul fate. Her labs there showed leukocytosis and findings of UTI. She was started IV fluids and given one dose of Zosyn, Flagyl and Vancomycin. She was then transferred to [facility], upon arriv al she was febrile and [...] or aneurysm. 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 ([facility]) Immunocompromised state ([facility]) ASSESSMENT & PLAN Sepsis: Stable and improved [...] Camacho PT at 11/09/14 1415 Author: Christel Camacho PT Service: (none) Author Type: Physical Therapist Filed: 11/09/14 9286 Date of Service: 11/09/145 Status: Signed Network Cabler: Christel Camacho PT (Physical Therapist) 11/09/14 1415 PT Last Visit PT Received On 11/09/14 Reason for Treatment Deconditioning;Other (comment) (acute encephalopathy, debrile, chronic diarrhea-Crohn's dx ) Requires PT Follow Up Awaiting tx order Follow up PT Only? No Focus for Next Treatment Stair Training (standing HEP ) PT Eval/Reassessment Date 11/09/14 Assistance Required 1 person Layer Out Needed No Precautions Other Precautions 2falls in [...] she was going to OP PT in [place]. She indicates her will be home for [...] Barriers to Discharge Physical Deficits Impacting Functional [facility] Ready for Discharge Yes (pt.'s will be home until school starts ) onver roshan Main, Provider Unknown - 11/09/2014 2:13 PM PDT Nurse Progress Note by Eliza Cheng RN at 11/09/141412 Author: Eliza Cheng RN Service: (none) Author Type: Registered Nurse Filed: 11/09/14 1415 Date of Service: 11/09/141412 Status: Signed Network Cabler: Eliza Cheng RN (Registered Nurse) Per pt: [...] 1442 Date of Service: 11/09/14856 Status: Signed Network Cabler: Ev Mas MD (Physician) [facility] Service: Infectious Disease Progress Note Hospital Day: [...] who was admitted as a transfer from [facility] due to sepsis and a ltered mental status. Apparently, she developed nausea, vomiting and diarrhea for four days and was very lethargic. Her has been giving all her medications including narcotics Oxycodone Morphine sulfate. Her labs there showed leukocytosis and findings of UTI. She was started IV fluids and given one dose of Zosyn, Flagyl and Vancomycin. She was then transferr ed to [facility], upon arrival she was febrile and labs [...] normal glucose. PROBLEM LIST Principal Problem: Sepsis(995.91) ([facility]) Active Problems: Diarrhea Encephalopathy acute Delirium Urinary [...] 1725 Date of Service: 11/08/14841 Status: Signed Network Cabler: Rosmery Oden MD (Physician) [facility] Service: Hospitalist Progress Note Mackenzie Willingham 59 y.o. [id number] - female Neel Vega Dena (General) Hospital Day: LOS: 3 days SUBJECTIVE Patient Summary: Patient is a 59 year old female with past medical history of COPD, Crohn's Disease, HTN, Hi story of Spelnic Vein Thrombosis and Immunosuppression due to Steroids and Remicade who was admitted as a transfer from [facility] due to sepsis and altered mental status. Apparently, she developed nausea, vomiting and diarrhea for four days and was very lethargic . Her has been giving all her medications including narcotics Oxycodone Morphine sul fate. Her labs there showed leukocytosis and findings of UTI. She was started IV fluids and given one dose of Zosyn, Flagyl and Vancomycin. She was then transferred to [facility], upon arriv al she was febrile and [...] Will follow MS panel results and con gold prospector repeating MRI with contrast before discharge. Hyponatremia [...] Date of Service: 11/08/14 0807 Status: Signed Network Cabler: Ev Mas MD (Physician) [facility] Service: Infectious Disease Progress Note Hospital Day: [...] who was admitted as a transfer from [facility] due to sepsis and a ltered mental status. Apparently, she developed nausea, vomiting and diarrhea for four days and was very lethargic. Her has been giving all her medications including narcotics Oxycodone Morphine sulfate. Her labs there showed leukocytosis and findings of UTI. She was started IV fluids and given one dose of Zosyn, Flagyl and Vancomycin. She was then transferr ed to [facility], upon arrival she was febrile and labs [...] normal glucose. PROBLEM LIST Principal Problem: Sepsis(995.91) ([facility]) Active Problems: Diarrhea Encephalopathy acute Delirium Urinary [...] Progress Note by Anthony Correa at 11/07/14 0910 Author: Anthony Correa Service: Wound/Ostomy Care Author Type: Nurse Physical Therapist Filed: 11/07/14 8637 Date of Service: 11/07/141106 Status: Signed Network Cabler: Anthony Correa (Nurse Physical Therapist) Patient seen today for low Marck score. [...] 1719 Date of Service: 11/07/14908 Status: Addendum Network Cabler: Rosmery Oden MD (Physician) Related Notes: Original Note by Rosmery Oden MD (Physician) filed at 11/07/14 17 18 [facility] Service: Hospitalist Progress Note Mackenzie Willingham 59 y.o. [id number] 2037/2037- female Neel Fernandes (General) Hospital Day: LOS: 2 days SUBJECTIVE Patient Summary: Patient is a 59 year old female with past medical history of COPD, Crohn's Disease, HTN, Hi story of Spelnic Vein Thrombosis and Immunosuppression due to Steroids and Remicade who was admitted as a transfer from [facility] due to sepsis and altered mental status. Apparently, she developed nausea, vomiting and diarrhea for four days and was very lethargic . Her has been giving all her medications including narcotics Oxycodone Morphine sul fate. Her labs there showed leukocytosis and findings of UTI. She was started IV fluids and given one dose of Zosyn, Flagyl and Vancomycin. She was then transferred to [facility], upon arriv al she was febrile and [...] or aneurysm. LEM LIST Principal Problem: Sepsis(995.91) ([facility]) Active Problems: Encephalopathy acute Diarrhea Delirium Urinary [...] 0845 Date of Service: 11/07/14808 Status: Signed Network Cabler: Raphael Turner DO (Physician) [facility] Service: Infectious Disease Progress Note Hospital Day: [...] 1700 Date of Service: 11/06/14844 Status: Addendum Network Cabler: Rosmery Oden MD (Physician) Related Notes: Original Note by Rosmery Oden MD (Physician) filed at 11/06/14 16 57 [facility] Service: Hospitalist Progress Note Mackenzie Willingham 59 y.o. [phone] female Neel Fernandes (General) Hospital Day: LOS: 1 day SUBJECTIVE Patient Summary: Patient is a 59 year old female with past medical history of COPD, Crohn's Disease, HTN, Hi story of Spelnic Vein Thrombosis and Immunosuppression due to Steroids and Remicade who was admitted as a transfer from [facility] due to sepsis and altered mental status. Apparently, she developed nausea, vomiting and diarrhea for four days and was very lethargic . Her has been giving all her medications including narcotics Oxycodone Morphine sul fate. Her labs there showed leukocytosis and findings of UTI. She was started IV fluids and given one dose of Zosyn, Flagyl and Vancomycin. Upon arrival to 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 Will monitor CBC and continue [...] 11/06/1444 Date of Service: 11/06/14543 Status: Signed Network Cabler: Rosita Bertrand RPH (Pharmacist) Clinical Pharmacy Note: Renal Monitoring Height: 175.3 cm Weight: 68 kg CREATININE: 0.76 (11/05/14 5472) Estimated creatinine clearance - 83.3 mL/min Pharmacy [...] 11/06/14610 Date of Service: 11/06/14445 Status: Signed Network Cabler: Livia Deshpande RN (Registered Nurse) Called pts husbands phone number to complete the MRI form. Left a message with him to call [facility]. docume nted in this encounter Plan of [...] | | | | [facility], [address] [facility] | | | | | | [place] | | | | | | [address] | | | | + + + + + + | RED CELL | 3.74Comment: Testing | 3.70 - 5.10 | EXTERNAL | | | COUNT | performed at [facility], [address] | M/uL | LAB | | | | [address], | | | | | | [place] [address] | | | | + + + + + + | Hgb | 11.3Comment: Testing | 11.3 - 15.5 | EXTERNAL | | | | performed at [facility], [address] | g/dL | LAB | | | | [address], | | | | | | [place] [address] | | | | + + + + + + | Hematocrit, | 35.4Comment: Testing | 34.0 - 46.0 % | EXTERNAL | | | POC | performed at [facility], [address] | | LAB | | | | [address], | | | | | | [place] [address] | | | | + + + + + + | MCV | 94.7Comment: Testing | 80.0 - 100.0 fl | EXTERNAL | | | | performed at [facility], [address] | | LAB | | | | [address], | | | | | | [place] [address] | | | | + + + + + + | MCH | 30.3Comment: Testing | 27.0 - 34.0 pg | EXTERNAL | | | | performed at [facility], [address] | | LAB | | | | [address], | | | | | | [place] [address] | | | | + + + + + + | MCHC | 32.0Comment: Testing | 32.0 - 35.5 | EXTERNAL | | | | performed at [facility], [address] | g/dL | LAB | | | | [address], | | | | | | [place] [address] | | | | + + + + + + | RDW-CV | 59.5 (H)Comment: Testing | 37 - 53 fl | EXTERNAL | | | | performed at [facility], [address] | | LAB | | | | [address], | | | | | | [place] [address] | | | | + + + + + + | Platelet | 393Comment: Testing | 150 - 400 K/uL | EXTERNAL | | | Count | performed at [facility], [address] | | LAB | | | Plasma | [place], | | | | | | [place] [address] | | | | + + + + + + | MPV | 8.4Comment: Testing | fl | EXTERNAL | | | | performed at [facility], [address] | | LAB | | | | [address], | | | | | | [place] [address] | | | | + + + [...] | | | | | performed at [facility];[address] | | | | | | [address] [place], [place] | | | | | | [address] | | | | + + + [...] | | | | [facility], [address] | | | | | | [place] | | | | | | [address] | | | | + + + + + + | RED CELL | 3.75Comment: Testing | 3.70 - 5.10 | EXTERNAL | | | COUNT | performed at [facility], [address] | M/uL | LAB | | | | [address], | | | | | | [place] [address] | | | | + + + + + + | Hgb | 11.2 (L)Comment: Testing | 11.3 - 15.5 | EXTERNAL | | | | performed at [facility], [address] | g/dL | LAB | | | | [address] [place] [place], | | | | | | [place] [address] | | | | + + + + + + | Hematocrit, | 36.1Comment: Testing | 34.0 - 46.0 % | EXTERNAL | | | POC | performed at [facility], [address] | | LAB | | | | [place], | | | | | | [place] [address] | | | | + + + + + + | MCV | 96.2Comment: Testing | 80.0 - 100.0 fl | EXTERNAL | | | | performed at [facility], [address] | | LAB | | | | [place], | | | | | | [place] [address] | | | | + + + + + + | MCH | 30.0Comment: Testing | 27.0 - 34.0 pg | EXTERNAL | | | | performed at [facility], [address] | | LAB | | | | [address], | | | | | | [place] [address] | | | | + + + + + + | MCHC | 31.2 (L)Comment: Testing | 32.0 - 35.5 | EXTERNAL | | | | performed at [facility], [address] | g/dL | LAB | | | | [address], | | | | | | [place] [address] | | | | + + + + + + | RDW-CV | 58.6 (H)Comment: Testing | 37 - 53 fl | EXTERNAL | | | | performed at [facility], [address] | | LAB | | | | [address], | | | | | | [place] [address] | | | | + + + + + + | Platelet | 391Comment: Testing | 150 - 400 K/uL | EXTERNAL | | | Count | performed at [facility], [address] | | LAB | | | Plasma | [place] [place], | | | | | | [place] [address] | | | | + + + + + + | MPV | 8.6Comment: Testing | fl | EXTERNAL | | | | performed at [facility], [address] | | LAB | | | [address], | | | | | | [place] [address] | | | | + + + [...] | | | | | performed at [facility] | | | | | | [facility];[place], [place] | | | | | | [address] | | | | + + + [...] | | | | | [place] [address] | | | | + + + + + + | K | 3.4 (L)Comment: Testing | 3.5 - 4.9 | EXTERNAL | | | | performed at [facility], [address] | mmol/L | LAB | | | | [address], | | | | | | [place] [address] | | | | + + + + + + | Cl | 109Comment: Testing | 99 - 109 mmol/L | EXTERNAL | | | | performed at [facility], [address] | | LAB | | | | [address], | | | | | | [place] [address] | | | | + + + + + + | CO2 | 20 (L)Comment: Testing | 23 - 32 mmol/L | EXTERNAL | | | | performed at [facility], [address] | | LAB | | | | [address], | | | | | | [place] [address] | | | | + + + + + + | Anion Gap | 11Comment: Testing | 5 - 20 mmol/L | EXTERNAL | | | | performed at [facility], [address] | | LAB | | | | [address], | | | | | | [place] [address] | | | | + + + + + + | Glucose, | 74Comment: Testing | 65 - 99 mg/dL | EXTERNAL | | | Fasting | performed at [facility], [address] | | LAB | | | | [address], | | | | | | [place] [address] | | | | + + + + + + | BUN | 8Comment: Testing | 8 - 25 mg/dL | EXTERNAL | | | | performed at [facility], [address] | | LAB | | | | [address], | | | | | | [place] [address] | | | | + + + + + + | Creatinine | 0.57Comment: Testing | 0.50 - 1.00 | EXTERNAL | | | | performed at [facility], [address] | mg/dL | LAB | | | | [address], | | | | | | [place] [address] | | | | + + + + + + | BUN/Creatin | 14Comment: Testing | | EXTERNAL | | | ine Ratio | performed at [facility], [address] | | LAB | | | | [address], | | | | | | [place] [address] | | | | + + + + + + | Calcium | 8.5Comment: Testing | 8.5 - 10.5 | EXTERNAL | | | | performed at [facility], [address] | mg/dL | LAB | | | | [address], | | | | | | [place] [address] | | | | + + + + + + | Protein, | 5.9 (L)Comment: Testing | 6.3 - 8.2 g/dL | EXTERNAL | | | Total | performed at [facility], [address] | | LAB | | | | [address], | | | | | | [place] [address] | | | | + + + + + + | Albumin | 2.7 (L)Comment: Testing | 3.6 - 5.0 g/dL | EXTERNAL | | | | performed at [facility], [address] | | LAB | | | | [address], | | | | | | [place] [address] | | | | + + + + + + | Globulin | 3.2Comment: Testing | 1.3 - 4.9 g/dL | EXTERNAL | | | | performed at [facility], [address] | | LAB | | | | [address], | | | | | | [place] [address] | | | | + + + + + + | A/G Ratio | 0.8 (L)Comment: Testing | 1.0 - 2.4 | EXTERNAL | | | | performed at [facility], [address] | | LAB | | | | [address], | | | | | | [place] [address] | | | | + + + + + + | Bilirubin | 0.4Comment: Testing | 0.1 - 1.5 mg/dL | EXTERNAL | | | Total | performed at [facility], [address] | | LAB | | | | [address], | | | | | | [place] [address] | | | | + + + + + + | ALP, | 137 (H)Comment: Testing | 35 - 115 U/L | EXTERNAL | | | External | performed at [facility], [address] | | LAB | | | | [address], | | | | | | [place] [address] | | | | + + + + + + | AST | 13Comment: Testing | 10 - 45 U/L | EXTERNAL | | | | performed at [facility], [address] | | LAB | | | | [address], | | | | | | [place] [address] | | | | + + + + + + | ALT | 13Comment: Testing | 10 - 65 U/L | EXTERNAL | | | | performed at [facility], [address] | | LAB | | | | [address] [employer] [facility], | | | | | | [place] [address] | | | | + + + [...] | | | | | | at [facility], [address] | | | | | | [address], | | | | | | [place] [address] | | | | + + + [...] | | | | | performed at [facility];[address] | | | | | | [address];[place], [place] | | | | | | [address] | | | | + + + [...] [place] | | | | | | [address] | | | | + + + + + + | RED CELL | 4.07Comment: Testing | 3.70 - 5.10 | EXTERNAL | | | COUNT | performed at [facility], [address] | M/uL | LAB | | | | [address], | | | | | | [place] [address] | | | | + + + + + + | Hgb | 12.3Comment: Testing | 11.3 - 15.5 | EXTERNAL | | | | performed at [facility], [address] | g/dL | LAB | | | | [address], | | | | | | [place] [address] | | | | + + + + + + | Hematocrit, | 38.1Comment: Testing | 34.0 - 46.0 % | EXTERNAL | | | POC | performed at [facility], [address] | | LAB | | | | [address], | | | | | | [place] [address] | | | | + + + + + + | MCV | 93.6Comment: Testing | 80.0 - 100.0 fl | EXTERNAL | | | | performed at [facility], [address] | | LAB | | | | [address], | | | | | | [place] [address] | | | | + + + + + + | MCH | 30.2Comment: Testing | 27.0 - 34.0 pg | EXTERNAL | | | | performed at [facility], [address] | | LAB | | | | [address], | | | | | | [place] [address] | | | | + + + + + + | MCHC | 32.2Comment: Testing | 32.0 - 35.5 | EXTERNAL | | | | performed at [facility], [address] | g/dL | LAB | | | | [address], | | | | | | [place] [address] | | | | + + + + + + | RDW-CV | 59.1 (H)Comment: Testing | 37 - 53 fl | EXTERNAL | | | | performed at [facility], [address] | | LAB | | | | [address], | | | | | | [place] [address] | | | | + + + + + + | Platelet | 390Comment: Testing | 150 - 400 K/uL | EXTERNAL | | | Count | performed at [facility], [address] | | LAB | | | Plasma | [address], | | | | | | [place] [address] | | | | + + + + + + | MPV | 8.4Comment: Testing | fl | EXTERNAL | | | | performed at [facility], [address] | | LAB | | | | [address] [place], | | | | | | [place] [address] | | | | + + + + + + | Differentia | AUTOMATEDComment: | | EXTERNAL | | | l Type | Testing performed at | | LAB | | | | [facility], [address] | | | | | | [place] | | | | | | [address] | | | | + + + + + + | % Segmented | 69.87Comment: Testing | % | EXTERNAL | | | | performed at [facility], [address] | | LAB | | | Neutrophils | [address], | | | | | | [place] [address] | | | | + + + + + + | % | 16.92Comment: Testing | % | EXTERNAL | | | Lymphocytes | performed at [facility], [address] | | LAB | | | | [address], | | | | | | [place], [place] [address] | | | | + + + + + + | % Monocytes | 11.85Comment: Testing | % | EXTERNAL | | | | performed at [facility], [address] | | LAB | | | | [address], | | | | | | [place], [place] [address] | | | | + + + + + + | % | 0.93Comment: Testing | % | EXTERNAL | | | Eosinophils | performed at [facility], [address] | | LAB | | | | [address], | | | | | | [place], [place] [address] | | | | + + + + + + | % Basophils | 0.43Comment: Testing | % | EXTERNAL | | | | performed at [facility], [address] | | LAB | | | | [address], | | | | | | [place] [address] | | | | + + + + + + | Absolute | 12.01 (H)Comment: | 1.90 - 7.40 | EXTERNAL | | | Segmented | Testing performed at | K/uL | LAB | | | Neutrophils | [facility], [address] | | | | | | [place] | | | | | | [address] | | | | + + + + + + | Absolute | 2.91Comment: Testing | 1.00 - 3.90 | EXTERNAL | | | Lymphocytes | performed at [facility], [address] | K/uL | LAB | | | | [place] [place], | | | | | | [place] [address] | | | | + + + + + + | Absolute | 2.04 (H)Comment: Testing | 0.00 - 0.80 | EXTERNAL | | | Monocytes | performed at [facility], [address] | K/uL | LAB | | | | [address] [place], | | | | | | [place] [address] | | | | + + + + + + | Absolute | 0.16Comment: Testing | 0.00 - 0.50 | EXTERNAL | | | Eosinophils | performed at [facility], [address] | K/uL | LAB | | | | [address], | | | | | | [place] [address] | | | | + + + + + + | Absolute | 0.07Comment: Testing | 0.00 - 0.10 | EXTERNAL | | | Basophils | performed at [facility], [address] | K/uL | LAB | | | | [address], | | | | | | [place] [address] | | | | + + + + + + | RBC | 2+Comment: ANISONORMAL | | EXTERNAL | | | Morphology | PLT MORPHTesting | | LAB | | | | performed at [facility], [address] | | | | | | [address], | | | | | | [place] [address] | | | | | | | [...] | | | | | [place] [address] | | | | + + + [...] [place] | | | | | | [address] | | | | + + + + + + | Cl | 104Comment: Testing | 99 - 109 mmol/L | EXTERNAL | | | | performed at [facility], [address] | | LAB | | | | [address] [place], | | | | | | [place] [address] | | | | + + + + + + | CO2 | 21 (L)Comment: Testing | 23 - 32 mmol/L | EXTERNAL | | | | performed at [facility], [address] | | LAB | | | | [address] [place], | | | | | | [place] [address] | | | | + + + + + + | Anion Gap | 12Comment: Testing | 5 - 20 mmol/L | EXTERNAL | | | | performed at [facility], [address] | | LAB | | | | [address], | | | | | | [place] [address] | | | | + + + + + + | Glucose, | 83Comment: Testing | 65 - 99 mg/dL | EXTERNAL | | | Fasting | performed at [facility], [address] | | LAB | | | | [address], | | | | | | [place] [address] | | | | + + + + + + | BUN | 8Comment: Testing | 8 - 25 mg/dL | EXTERNAL | | | | performed at [facility], [address] | | LAB | | | | [address], | | | | | | [place] [address] | | | | + + + + + + | Creatinine | 0.52Comment: Testing | 0.50 - 1.00 | EXTERNAL | | | | performed at [facility], [address] | mg/dL | LAB | | | | [address], | | | | | | [place] [address] | | | | + + + + + + | BUN/Creatin | 15Comment: Testing | | EXTERNAL | | | ine Ratio | performed at [facility], [address] | | LAB | | | | [address], | | | | | | [place] [address] | | | | + + + + + + | Calcium | 8.6Comment: Testing | 8.5 - 10.5 | EXTERNAL | | | | performed at [facility], [address] | mg/dL | LAB | | | | [address], | | | | | | [place] [address] | | | | + + + + + + | Protein, | 5.8 (L)Comment: Testing | 6.3 - 8.2 g/dL | EXTERNAL | | | Total | performed at [facility], [address] | | LAB | | | | [address], | | | | | | [place] [address] | | | | + + + + + + | Albumin | 2.9 (L)Comment: Testing | 3.6 - 5.0 g/dL | EXTERNAL | | | | performed at [facility], [address] | | LAB | | | | [address], | | | | | | [place] [address] | | | | + + + + + + | Globulin | 2.9Comment: Testing | 1.3 - 4.9 g/dL | EXTERNAL | | | | performed at [facility], [address] | | LAB | | | | [address], | | | | | | [place] [address] | | | | + + + + + + | A/G Ratio | 1.0Comment: Testing | 1.0 - 2.4 | EXTERNAL | | | | performed at [facility], [address] | | LAB | | | | [address], | | | | | | [place] [address] | | | | + + + + + + | Bilirubin | 0.7Comment: Testing | 0.1 - 1.5 mg/dL | EXTERNAL | | | Total | performed at [facility], [address] | | LAB | | | | [address], | | | | | | [place] [address] | | | | + + + + + + | ALP, | 169 (H)Comment: Testing | 35 - 115 U/L | EXTERNAL | | | External | performed at [facility], [address] | | LAB | | | | [address], | | | | | | [place] [address] | | | | + + + + + + | AST | 16Comment: Testing | 10 - 45 U/L | EXTERNAL | | | | performed at [facility], [address] | | LAB | | | | [address], | | | | | | [place] [address] | | | | + + + + + + | ALT | 17Comment: Testing | 10 - 65 U/L | EXTERNAL | | | | performed at [facility], [address] | | LAB | | | | [address], | | | | | | [place] [address] | | | | + + + [...] | | | | | [place] [address] | | | | + + + [...] | | | Total | performed at [facility], [address] | | LAB | | | | [address], | | | | | | [place] [address] | | | | + + + [...] Conversion - 11/24/2018 6:38 AM PDT [facility]RA | | [...] | | | | | performed at [facility];[address] | | | | | | [facility];[place], [place] | | | | | | [address] | | | | + + + [...] | | | | [facility], [address] | | | | | | [place] | | | | | | [address] | | | | + + + + + + | RED CELL | 4.28Comment: Testing | 3.70 - 5.10 | EXTERNAL | | | COUNT | performed at [facility], [address] | M/uL | LAB | | | | [address], | | | | | | [place] [address] | | | | + + + + + + | Hgb | 13.0Comment: Testing | 11.3 - 15.5 | EXTERNAL | | | | performed at [facility], [address] | g/dL | LAB | | | | [address], | | | | | | [place] [address] | | | | + + + + + + | Hematocrit, | 40.0Comment: Testing | 34.0 - 46.0 % | EXTERNAL | | | POC | performed at [facility], [address] | | LAB | | | | [address], | | | | | | [place] [address] | | | | + + + + + + | MCV | 93.4Comment: Testing | 80.0 - 100.0 fl | EXTERNAL | | | | performed at [facility], [address] | | LAB | | | | [address], | | | | | | [place] [address] | | | | + + + + + + | MCH | 30.3Comment: Testing | 27.0 - 34.0 pg | EXTERNAL | | | | performed at [facility], [address] | | LAB | | | | [address], | | | | | | [place] [address] | | | | + + + + + + | MCHC | 32.5Comment: Testing | 32.0 - 35.5 | EXTERNAL | | | | performed at [facility], [address] | g/dL | LAB | | | | [address], | | | | | | [place] [address] | | | | + + + + + + | RDW-CV | 57.8 (H)Comment: Testing | 37 - 53 fl | EXTERNAL | | | | performed at [facility], [address] | | LAB | | | | [address], | | | | | | [place] [address] | | | | + + + + + + | Platelet | 403 (H)Comment: Testing | 150 - 400 K/uL | EXTERNAL | | | Count | performed at [facility], [address] | | LAB | | | Plasma | [address], | | | | | | [place] [address] | | | | + + + + + + | MPV | 8.4Comment: Testing | fl | EXTERNAL | | | | performed at [facility], [address] | | LAB | | | | [address], | | | | | | [place] [address] | | | | + + + + + + | Differentia | AUTOMATEDComment: | | EXTERNAL | | | l Type | Testing performed at | | LAB | | | | [facility], [address] | | | | | | [place] | | | | | | [address] | | | | + + + + + + | % Segmented | 69.85Comment: Testing | % | EXTERNAL | | | | performed at [facility], [address] | | LAB | | | Neutrophils | [address], | | | | | | [place] [address] | | | | + + + + + + | % | 17.96Comment: Testing | % | EXTERNAL | | | Lymphocytes | performed at [facility], [address] | | LAB | | | | [address], | | | | | | [place] [address] | | | | + + + + + + | % Monocytes | 11.10Comment: Testing | % | EXTERNAL | | | | performed at [facility], [address] | | LAB | | | | [address], | | | | | | [place] [address] | | | | + + + + + + | % | 0.77Comment: Testing | % | EXTERNAL | | | Eosinophils | performed at [facility], [address] | | LAB | | | | [address], | | | | | | [place] [address] | | | | + + + + + + | % Basophils | 0.32Comment: Testing | % | EXTERNAL | | | | performed at [facility], [address] | | LAB | | | | [address], | | | | | | [place] [address] | | | | + + + + + + | Absolute | 10.28 (H)Comment: | 1.90 - 7.40 | EXTERNAL | | | Segmented | Testing performed at | K/uL | LAB | | | Neutrophils | [facility], [address] | | | | | | [place] | | | | | | [address] | | | | + + + + + + | Absolute | 2.64Comment: Testing | 1.00 - 3.90 | EXTERNAL | | | Lymphocytes | performed at [facility], [address] | K/uL | LAB | | | | [address], | | | | | | [place] [address] | | | | + + + + + + | Absolute | 1.63 (H)Comment: Testing | 0.00 - 0.80 | EXTERNAL | | | Monocytes | performed at [facility], [address] | K/uL | LAB | | | | [address], | | | | | | [place] [address] | | | | + + + + + + | Absolute | 0.11Comment: Testing | 0.00 - 0.50 | EXTERNAL | | | Eosinophils | performed at [facility], [address] | K/uL | LAB | | | | [address], | | | | | | [place] [address] | | | | + + + + + + | Absolute | 0.05Comment: Testing | 0.00 - 0.10 | EXTERNAL | | | Basophils | performed at [facility], [address] | K/uL | LAB | | | | [address], | | | | | | [place] [address] | | | | + + + [...] EXTERNAL | | | | performed at [facility], [address] | mmol/L | LAB | | | | [address], | | | | | | [place] [address] | | | | + + + + + + | K | 3.1 (L)Comment: Testing | 3.5 - 4.9 | EXTERNAL | | | | performed at [facility], [address] | mmol/L | LAB | | | | [address], | | | | | | [place] [address] | | | | + + + + + + | Cl | 96 (L)Comment: Testing | 99 - 109 mmol/L | EXTERNAL | | | | performed at [facility], [address] | | LAB | | | | [address], | | | | | | [place] [address] | | | | + + + + + + | CO2 | 24Comment: Testing | 23 - 32 mmol/L | EXTERNAL | | | | performed at [facility], [address] | | LAB | | | | [address], | | | | | | [place] [address] | | | | + + + + + + | Anion Gap | 11Comment: Testing | 5 - 20 mmol/L | EXTERNAL | | | | performed at [facility], [address] | | LAB | | | | [address], | | | | | | [place] [address] | | | | + + + + + + | Glucose, | 102 (H)Comment: Testing | 65 - 99 mg/dL | EXTERNAL | | | Fasting | performed at [facility], [address] | | LAB | | | | [address], | | | | | | [place] [address] | | | | + + + + + + | BUN | 6 (L)Comment: Testing | 8 - 25 mg/dL | EXTERNAL | | | | performed at [facility], [address] | | LAB | | | | [address], | | | | | | [place] [address] | | | | + + + + + + | Creatinine | 0.49 (L)Comment: Testing | 0.50 - 1.00 | EXTERNAL | | | | performed at [facility], [address] | mg/dL | LAB | | | | [address], | | | | | | [place] [address] | | | | + + + + + + | BUN/Creatin | 12Comment: Testing | | EXTERNAL | | | ine Ratio | performed at [facility], [address] | | LAB | | | | [address], | | | | | | [place] [address] | | | | + + + + + + | Calcium | 8.5Comment: Testing | 8.5 - 10.5 | EXTERNAL | | | | performed at [facility], [address] | mg/dL | LAB | | | | [address], | | | | | | [place] [address] | | | | + + + + + + | Protein, | 6.1 (L)Comment: Testing | 6.3 - 8.2 g/dL | EXTERNAL | | | Total | performed at [facility], [address] | | LAB | | | | [address], | | | | | | [place] [address] | | | | + + + + + + | Albumin | 3.0 (L)Comment: Testing | 3.6 - 5.0 g/dL | EXTERNAL | | | | performed at [facility], [address] | | LAB | | | | [address], | | | | | | [place] [address] | | | | + + + + + + | Globulin | 3.1Comment: Testing | 1.3 - 4.9 g/dL | EXTERNAL | | | | performed at [facility], [address] | | LAB | | | | [address], | | | | | | [place] [address] | | | | + + + + + + | A/G Ratio | 1.0Comment: Testing | 1.0 - 2.4 | EXTERNAL | | | | performed at [facility], [address] | | LAB | | | | [address], | | | | | | [place] [address] | | | | + + + + + + | Bilirubin | 0.7Comment: Testing | 0.1 - 1.5 mg/dL | EXTERNAL | | | Total | performed at [facility], [address] | | LAB | | | | [address], | | | | | | [place] [address] | | | | + + + + + + | ALP, | 208 (H)Comment: Testing | 35 - 115 U/L | EXTERNAL | | | External | performed at [facility], [address] | | LAB | | | [address], | | | | | | [place] [address] | | | | + + + + + + | AST | 21Comment: Testing | 10 - 45 U/L | EXTERNAL | | | | performed at [facility], [address] | | LAB | | | | [address], | | | | | | [place] [address] | | | | + + + + + + | ALT | 21Comment: Testing | 10 - 65 U/L | EXTERNAL | | | | performed at [facility], [address] | | LAB | | | | [address] [employer] [facility], | | | | | | [place] [address] | | | | + + + [...] | | | | | | at [facility], [address] | | | | | | [address], | | | | | | [place] [address] | | | | + + + [...] Testing performed | | | at [facility], [address] [place] [address] | | + + + + +---------+ [...] LAB | | | | performed at [facility];[address] | | | | | | [address] [facility];[place] | | | | | | [address] | | | | + + + + + + | CRYPTO AG | Comment: ACCESSION NO. | | EXTERNAL | | | CSF | | | LAB | | | | [id number] | | | | | | SOURCE | | | | | | CEREBROSPINAL | | | | | | FLUIDRESULT | | | | | | | | | | | | NEGATIVETesting | | | | | | performed at [facility] | | | | | | [facility], | | | | | | [address] | | | | | | [address] | | | | + + + + + + | CRYPTOCOCCU | REPORT STATUS | | EXTERNAL | | | S AG, CSF | FINAL | | LAB | | | | 11/08/2014Comment: | | | | | | Testing performed at | | | | | | [facility] | | | | | | Center, [address], | | | | | | [place] [address] | | | | + + + [...] | EXTERNAL LAB | | performed at [facility];[address] [place] [address];[place] [address] 027 NAP1 BI | | | 027 NAP1 BI PRESUMPTIVE NEGATIVE | | | Detection of 027 NAP1 BI strains of C. difficile is presumptive and | | | for epidemiological purposes and not intended to guide or monitor | | | treatment for C. difficile infections. Testing performed at [facility];[address] | | | [facility];[place] [address] | | + + + + +---------+ [...] TESTING. | | | Testing performed at [facility], [address] | | | [place] [address] | | + + + + +---------+ [...] EXTERNAL LAB | | Testing performed at [facility];[address] [place] [address];[place] [address] RESULT | | | NEGATIVE Reference range: [...] MICROLITER OF PATIENT SPECIMEN. Testing performed at [facility], | | | [address] [place] [address] COMMENT | | | SEE BELOW THIS TEST WAS DEVELOPED AND ITS | | | PERFORMANCE CHARACTERISTICS DETERMINED BY [facility]. THE [place] AND | [...] OR PATIENT MANAGEMENT | | | DECISIONS. [facility] IS AUTHORIZED UNDER CLINICAL LABORATORY IMPROVEMENT | | | AMENDMENTS (CLIA) TO PERFORM HIGH-COMPLEXITY TESTING. Testing | | | performed at [facility], [address] [place] [address] | | + + + + +---------+ [...] | Testing performed at | | | [facility];[address] [facility];[place] [address] CULTURE | | | NO GROWTH | | | Testing performed at [facility], [address] [facility], | | | [place] [address] | | + + + + +---------+ [...] EXTERNAL LAB | | Testing performed at [facility];[address] [facility];[place] [address] ENTEROVIRUS | | | PCR NEGATIVE INTENDED USE: THE | | | [place] XPERT EV ASSAY IS A REVERSE FLASK HANDLER POLYMERASE CHAIN | | | REACTION (RT-PCR) USING THE UpworthyERT DX SYSTEM FOR THE | | | [...] RT-PCR Testing | | | performed at [facility], [address] [place] [address] | | + + + + +---------+ + + | Performing | Address | City/State/[facility] | Phone Number | | [...] EXTERNAL LAB | | Testing performed at [facility];[address] [place] [address];[place] [address] SOURCE | | | SEE BELOW CEREBROSPINAL FLUID | | | Testing performed by [facility] [place] [address] HSV DNA Type 1 | | | NOT DETECTED Testing performed at [facility], [address] | | | [place] [address] HSV DNA Type 2 | | | NOT DETECTED Testing performed at [facility], [address] [facility], | | | [place] [address] COMMENT | | | SEE BELOW A [...] THE DIAGNOSIS OF DISEASE. Testing performed at [facility], [address] | | | [address] [place] [id number] COMMENT | | | SEE BELOW THIS TEST WAS DEVELOPED AND ITS | | | PERFORMANCE CHARACTERISTICS DETERMINED BY [facility]. THE [place] FO[place] AND | [...] OR PATIENT MANAGEMENT | | | DECISIONS. [facility] IS AUTHORIZED UNDER CLINICAL LABORATORY IMPROVEMENT | | | AMENDMENTS (CLIA) TO PERFORM HIGH-COMPLEXITY TESTING. Testing | | | performed at [facility], [address] [facility] [address] | | + + + + +---------+ [...] EXTERNAL LAB | | Testing performed at [facility];[address];[place] [address] APPEARANCE | | | CLEAR Testing performed at | | | [facility];[address];[place] [address] Tube Number, CSF | | | 3 Testing performed at [facility];[address] | [address];[place] [address] CSF RBC | | | 7 High Testing performed at [facility];[address] | | [address];[place] [address] CSF WBC | | | 2 Testing performed at [facility];[address];[place], [place] | | | [address] | | + + + + +---------+ [...] | EXTERNAL LAB | | performed at [address] [address] | | + + + + +---------+ [...] EXTERNAL LAB | | Testing performed at [facility];[address] [place] [address];[place] [address] | | + + + + +---------+ [...] EXTERNAL LAB | | Testing performed at [facility];[address] [place] [address];[place] [address] | | + + + + +---------+ [...] LAB | | | | performed at [facility] | | | | | | [address];[place], [place] | | | | | | [address] | | | | + + + [...] | | | | | DETERMINED BY [facility] | | | | | | LABORATORIES.SEE | | | | | | COMPLIANCE STATEMENT B: | | | | | | Elastera/CSTesting | | | | | | performed at [facility], [address] | | | | | | [facility] | | | | | | [place] [address] | | | | + + + [...] LAB | | | | performed at [facility] | | | | | | [facility], [address] | | | | | | [place] | | | | | | [address] | | | | + + + [...] | | | | | | [employer], [address] | | | | | | [place] | | | | | | [address] | | | | + + + [...] mental status, | | | transferred from [facility] on November 05, 2014. PRE | | [...] | | | possibility of "sound alike" short order fry cook errors, addition and/or | | | deletions [...] altered mental | | status, transferred from [facility] on November 05, 2014. PRE PROCEDURAL | [...] The possibility of "sound alike" | | short order fry cook errors, addition and/or deletions may occur. If [...] system. The possibility of "sound a like" short order fry cook errors, addition and/or deletions may occur. If [...] IMMUNOSUPPRESSION. Testing | | | performed at [facility], [address] [place] [address] | | | [place] [address] | | + + + + +---------+ [...] | | | THIS TEST IN THE [facility] | | | | | | LABORATORY TEST | | | | | | DIRECTORY(Elastera).T | | | | | | esting performed at | | | | | | [facility], [address] [facility] [place], | | | | | | [facility] [address] | | | | + + + + + + | IGG, CSF | 5.1Comment: Testing | 0.0 - 6.0 mg/dL | EXTERNAL | | | | performed at [facility], [address] | | LAB | | | | [facility] | | | | | | [facility] [address] | | | | + + + + + + | Albumin, | 32Comment: Testing | 0 - 35 mg/dL | EXTERNAL | | | CSF | performed at [facility], [address] | | LAB | | | | [facility] | | | | | | [facility] [address] | | | | + + + + + + | Albumin | 11.7 (H)Comment: Testing | 0.0 - 9.0 ratio | EXTERNAL | | | Index | performed at [facility], [address] | | LAB | | | | [facility] | | | | | | [facility] [address] | | | | + + + + + + | CSF | 0.16Comment: Testing | 0.09 - 0.25 | EXTERNAL | | | IgG/Albumin | performed at [facility], [address] | ratio | LAB | | | Ratio | [address], [facility] | | | | | | [facility] [address] | | | | + + + + + + | IgG Index | 0.46Comment: Testing | 0.28 - 0.66 | EXTERNAL | | | | performed at [facility], [address] | ratio | LAB | | | | [facility] | | | | | | [facility] [address] | | | | + + + + + + | CSF | NEGATIVEComment: | | EXTERNAL | | | Oligoclonal | REFERENCE RANGE: | | LAB | | | Bands | NEGATIVETesting | | | | | | performed at [facility], [address] | | | | | | [facility] | | | | | | [facility] [address] | | | | + + + [...] [address] | | | | | | [facility] | | | | | | [facility] [address] | | | | + + + + + + | IGG SYNTH | <0.0 (L)Comment: | 0.0 - 8.0 mg/d | EXTERNAL | | | RATE | REFERENCE RANGE: | | LAB | | | | <=8.0Testing performed | | | | | | at [facility], [address] [facility] | | | | | | [facility] [place] | | | | | | [address] | | | | + + + + + + | Albumin | 2,730 (L)Comment: | 3,500 - 5,200 | EXTERNAL | | | | Testing performed at | mg/dL | LAB | | | | [facility], [address], | | | | | | [facility] [address] | | | | + + + [...] Testing performed | | | at L, [address] [place] [address] | | + + + + +---------+ [...] GROWTH | | | Testing performed at [facility], | | | [address] [place] [address] | | + + + + +---------+ [...] EXTERNAL | | | | performed at [facility], [address] | | LAB | | | | [address], | | | | | | [place] [address] | | | | + + + + + + | Clarity | CLEARComment: Testing | | EXTERNAL | | | | performed at [facility], [address] | | LAB | | | | [address], | | | | | | [place] [address] | | | | + + + + + + | Specific | 1.014Comment: Testing | 1.002 - 1.030 | EXTERNAL | | | [place] | performed at [facility], [address] | | LAB | | | | [address] [place], | | | | | | [place] [address] | | | | + + + + + + | Leukocyte | TRACE (A)Comment: | | EXTERNAL | | | Esterase, | Testing performed at | | LAB | | | Urine | [facility], [address] | | | | | | [place] | | | | | | [address] | | | | + + + + + + | Nitrite, | NEGATIVEComment: Testing | | EXTERNAL | | | Urine | performed at [facility], [address] | | LAB | | | | [address], | | | | | | [place] [address] | | | | + + + + + + | Urobilinoge | 0.2Comment: Testing | mg/dL | EXTERNAL | | | n, Urine | performed at [facility], [address] | | LAB | | | | [address], | | | | | | [place] [address] | | | | + + + + + + | Protein, | NEGATIVEComment: Testing | mg/dL | EXTERNAL | | | Urine | performed at [facility], [address] | | LAB | | | | [address], | | | | | | [place] [address] | | | | + + + + + + | pH, Urine | 7.0Comment: Testing | 5.0 - 8.0 | EXTERNAL | | | | performed at [facility], [address] | | LAB | | | [address], | | | | | | [place] [address] | | | | + + + + + + | Blood, | SMALL (A)Comment: | | EXTERNAL | | | Urine | Testing performed at | | LAB | | | | [facility], [address] | | | | | | [place] | | | | | | [address] | | | | + + + + + + | Ketones | NEGATIVEComment: Testing | mg/dL | EXTERNAL | | | | performed at [facility], [address] | | LAB | | | | [address], | | | | | | [place] [address] | | | | + + + + + + | Bilirubin, | NEGATIVEComment: Testing | | EXTERNAL | | | Urine | performed at [facility], [address] | | LAB | | | | [address], | | | | | | [place] [address] | | | | + + + + + + | Glucose, | NEGATIVEComment: Testing | mg/dL | EXTERNAL | | | Urine | performed at [facility], [address] | | LAB | | | | [address], | | | | | | [place] [address] | | | | + + + + + + | WBC, UA | 16-25Comment: Testing | 0 - 5 /hpf | EXTERNAL | | | | performed at [facility], [address] | | LAB | | | | [address], | | | | | | [place] [address] | | | | + + + + + + | RBC, UA | 6-10Comment: Testing | 0 - 5 /hpf | EXTERNAL | | | | performed at [facility], [address] | | LAB | | | | [address], | | | | | | [place] [address] | | | | + + + + + + | Bacteria, | NONE SEENComment: | | EXTERNAL | | | UA | CULTURE TO FOLLOWTesting | | LAB | | | | performed at [facility], [address] | | | | | | [address], | | | | | | [place] [address] | | | | + + + + + + | Epithelial | 26-50Comment: Testing | /lpf | EXTERNAL | | | Cells | performed at [facility], [address] | | LAB | | | | [address], | | | | | | [place] [address] | | | | + + + + + + | HYALINE | 0-2Comment: Testing | | EXTERNAL | | | CASTS UA | performed at [facility], [address] | | LAB | | | [address], | | | | | | [place] [address] | | | | + + + [...] MEDIPORT | | | Testing performed at [facility];[address] | | | [address] [address] CULTURE | | | NO GROWTH | | | Testing performed at [facility], [address] [facility], [place], [place] | | | [address] | | + + + + +---------+ [...] LAC | | | Testing performed at [facility];[address] | | | [facility];[place] [address] CULTURE | | | NO GROWTH | | | Testing performed at [facility], [address] [facility], [place], [place] | | | [address] | | + + + + +---------+ [...] | | | | | performed at [facility];[address] | | | | | | [address];[place] | | | | | | [address] | | | | + + + [...] [place] | | | | | | [address] | | | | + + + + + + | RED CELL | 4.38Comment: Testing | 3.70 - 5.10 | EXTERNAL | | | COUNT | performed at [facility], [address] | M/uL | LAB | | | | [address], | | | | | | [place] [address] | | | | + + + + + + | Hgb | 13.1Comment: Testing | 11.3 - 15.5 | EXTERNAL | | | | performed at [facility], [address] | g/dL | LAB | | | | [address], | | | | | | [place] [address] | | | | + + + + + + | Hematocrit, | 41.2Comment: Testing | 34.0 - 46.0 % | EXTERNAL | | | POC | performed at [facility], [address] | | LAB | | | | [place], | | | | | | [place] [address] | | | | + + + + + + | MCV | 94.0Comment: Testing | 80.0 - 100.0 fl | EXTERNAL | | | | performed at [facility], [address] | | LAB | | | | [address], | | | | | | [place] [address] | | | | + + + + + + | MCH | 29.9Comment: Testing | 27.0 - 34.0 pg | EXTERNAL | | | | performed at [facility], [address] | | LAB | | | | [address], | | | | | | [place] [address] | | | | + + + + + + | MCHC | 31.8 (L)Comment: Testing | 32.0 - 35.5 | EXTERNAL | | | | performed at [facility], [address] | g/dL | LAB | | | | [address], | | | | | | [place] [address] | | | | + + + + + + | RDW-CV | 59.5 (H)Comment: Testing | 37 - 53 fl | EXTERNAL | | | | performed at [facility], [address] | | LAB | | | | [address], | | | | | | [place], [place] [address] | | | | + + + + + + | Platelet | 436 (H)Comment: Testing | 150 - 400 K/uL | EXTERNAL | | | Count | performed at [facility], [address] | | LAB | | | Plasma | [address], | | | | | | [place], [place] [address] | | | | + + + + + + | MPV | 8.2Comment: Testing | fl | EXTERNAL | | | | performed at [facility], [address] | | LAB | | | | [address], | | | | | | [place] [address] | | | | + + + + + + | Differentia | MANUALComment: Testing | | EXTERNAL | | | l Type | performed at [facility], [address] | | LAB | | | | [address], | | | | | | [place] [address] | | | | + + + + + + | Segmented | 69Comment: Testing | % | EXTERNAL | | | Neutrophils | performed at [facility], [address] | | LAB | | | Manual | [address] [place], | | | | | | [place] [address] | | | | + + + + + + | Lymphocytes | 17Comment: Testing | % | EXTERNAL | | | Manual | performed at [facility], [address] | | LAB | | | | [address], | | | | | | [place] [address] | | | | + + + + + + | Monocytes | 14Comment: Testing | % | EXTERNAL | | | Manual | performed at [facility], [address] | | LAB | | | | [address], | | | | | | [place] [address] | | | | + + + + + + | Absolute | 17.00 (H)Comment: | 1.90 - 7.40 | EXTERNAL | | | Neutrophils | Testing performed at | K/uL | LAB | | | | [facility], [address] [facility] | | | | | | [place] | | | | | | [address] | | | | + + + + + + | Absolute | 4.19 (H)Comment: Testing | 1.00 - 3.90 | EXTERNAL | | | Lymphocytes | performed at [facility], [address] | [address]/u[address] | LAB | | | | [address] [place], | | | | | | [place] [address] | | | | + + + + + + | Absolute | 3.45 (H)Comment: Testing | 0.00 - 0.80 | EXTERNAL | | | Monocytes | performed at [facility], [address] | K/uL | LAB | | | | [address] [place], | | | | | | [place] [address] | | | | + + + + + + | RBC | 2+Comment: ANISONORMAL | | EXTERNAL | | | Morphology | PLT MORPHTesting | | LAB | | | | performed at [facility], [address] | | | | | | [place], | | | | | | [place] [address] | | | | | | | [...] EXTERNAL | | | | performed at [facility], [address] | | LAB | | | | [place], | | | | | | [place] [address] | | | | + + + [...] EXTERNAL | | | | performed at [facility], [address] | | LAB | | | | [place] [place], | | | | | | [place] [address] | | | | + + + [...] [place], | | | | | | [place] [address] | | | | + + + + + + | K | 3.5Comment: Testing | 3.5 - 4.9 | EXTERNAL | | | | performed at [facility], [address] | mmol/L | LAB | | | | [address] [place], | | | | | | [place] [address] | | | | + + + + + + | Cl | 95 (L)Comment: Testing | 99 - 109 mmol/L | EXTERNAL | | | | performed at [facility], [address] | | LAB | | | | [address], | | | | | | [place] [address] | | | | + + + + + + | CO2 | 25Comment: Testing | 23 - 32 mmol/L | EXTERNAL | | | | performed at [facility], [address] | | LAB | | | | [address], | | | | | | [place] [address] | | | | + + + + + + | Anion Gap | 12Comment: Testing | 5 - 20 mmol/L | EXTERNAL | | | | performed at [facility], [address] | | LAB | | | | [address] [place], | | | | | | [place] [address] | | | | + + + + + + | Glucose, | 120 (H)Comment: Testing | 65 - 99 mg/dL | EXTERNAL | | | Fasting | performed at [facility], [address] | | LAB | | | | [address], | | | | | | [place] [address] | | | | + + + + + + | BUN | 8Comment: Testing | 8 - 25 mg/dL | EXTERNAL | | | | performed at [facility], [address] | | LAB | | | | [address], | | | | | | [place] [address] | | | | + + + + + + | Creatinine | 0.45 (L)Comment: Testing | 0.50 - 1.00 | EXTERNAL | | | | performed at [facility], [address] | mg/dL | LAB | | | | [address], | | | | | | [place] [address] | | | | + + + + + + | BUN/Creatin | 18Comment: Testing | | EXTERNAL | | | ine Ratio | performed at [facility], [address] | | LAB | | | [address], | | | | | | [place] [address] | | | | + + + + + + | Calcium | 8.7Comment: Testing | 8.5 - 10.5 | EXTERNAL | | | | performed at [facility], [address] | mg/dL | LAB | | | | [address], | | | | | | [place] [address] | | | | + + + + + + | Protein, | 6.8Comment: Testing | 6.3 - 8.2 g/dL | EXTERNAL | | | Total | performed at [facility], [address] | | LAB | | | | [address], | | | | | | [place] [address] | | | | + + + + + + | Albumin | 3.1 (L)Comment: Testing | 3.6 - 5.0 g/dL | EXTERNAL | | | | performed at [facility], [address] | | LAB | | | | [address], | | | | | | [place] [address] | | | | + + + + + + | Globulin | 3.7Comment: Testing | 1.3 - 4.9 g/dL | EXTERNAL | | | | performed at [facility], [address] | | LAB | | | | [address], | | | | | | [place] [address] | | | | + + + + + + | A/G Ratio | 0.8 (L)Comment: Testing | 1.0 - 2.4 | EXTERNAL | | | | performed at [facility], [address] | | LAB | | | | [address], | | | | | | [place] [address] | | | | + + + + + + | Bilirubin | 0.8Comment: Testing | 0.1 - 1.5 mg/dL | EXTERNAL | | | Total | performed at [facility], [address] | | LAB | | | | [address], | | | | | | [place] [address] | | | | + + + + + + | ALP, | 214 (H)Comment: Testing | 35 - 115 U/L | EXTERNAL | | | External | performed at [facility], [address] | | LAB | | | | [address], | | | | | | [place] [address] | | | | + + + + + + | AST | 26Comment: Testing | 10 - 45 U/L | EXTERNAL | | | | performed at [facility], [address] | | LAB | | | | [address], | | | | | | [place] [address] | | | | + + + + + + | ALT | 29Comment: Testing | 10 - 65 U/L | EXTERNAL | | | | performed at [facility], [address] | | LAB | | | | [address], | | | | | | [place] [address] | | | | + + + [...] W | | | | | | [address], | | | | | | [place] [address] | | | | + + + [...] | | | | | [address];[place] [address] | | | | + + + + + -+ | RED CELL | 4.36Comment: Testing | 3.70 - 5.10 | EXTERNAL | | | COUNT | performed at [facility];[address] | [address] | LAB | | | | [address];[place] | | | | | | [address] | | | | + + + + + -+ | Hgb | 13.1Comment: Testing | 11.3 - 15.5 | EXTERNAL | | | | performed at [facility];[address] | g/dL | LAB | | | | [address];[place] | | | | | | [address] | | | | + + + + + -+ | Hematocrit, | 40.2Comment: Testing | 34.0 - 46.0 % | EXTERNAL | | | POC | performed at [facility];[address] | | LAB | | | | [address];[place] | | | | | | [address] | | | | + + + + + -+ | MCV | 92.3Comment: Testing | 80.0 - 100.0 fl | EXTERNAL | | | | performed at [facility];[address] | | LAB | | | | [address];[place] | | | | | | [address] | | | | + + + + + -+ | MCH | 30.2Comment: Testing | 27.0 - 34.0 pg | EXTERNAL | | | | performed at [facility];[address] | | LAB | | | | [address];[place] | | | | | | [address] | | | | + + + + + -+ | MCHC | 32.7Comment: Testing | 32.0 - 35.5 | EXTERNAL | | | | performed at [facility];[address] | g/dL | LAB | | | | [address];[place] | | | | | | [address] | | | | + + + + + -+ | RDW-CV | 59.5 (H)Comment: Testing | 37 - 53 fl | EXTERNAL | | | | performed at [facility];[address] | | LAB | | | | [address];[place] | | | | | | [address] | | | | + + + + + -+ | Platelet | 424 (H)Comment: Testing | 150 - 400 K/uL | EXTERNAL | | | Count | performed at [facility];[address] | | LAB | | | Plasma | [address];[place] | | | | | | [address] | | | | + + + + + -+ | MPV | 7.3Comment: Testing | fl | EXTERNAL | | | | performed at [facility];[address] | | LAB | | | | [address];[place] | | | | | | [address] | | | | + + + + + -+ | Differentia | AUTOMATEDComment: | | EXTERNAL | | | l Type | Testing performed at | | LAB | | | | [facility];[address];[place] [address] | | | | + + + + + -+ | % Segmented | 69.52Comment: Testing | % | EXTERNAL | | | | performed at [facility];[address] | | LAB | | | Neutrophils | [address];[place] | | | | | | [address] | | | | + + + + + -+ | % | 17.38Comment: Testing | % | EXTERNAL | | | Lymphocytes | performed at [facility];[address] | | LAB | | | | [address];[place] | | | | | | [address] | | | | + + + + + -+ | % Monocytes | 11.50Comment: Testing | % | EXTERNAL | | | | performed at [facility];[address] | | LAB | | | | [address];[place] | | | | | | [address] | | | | + + + + + -+ | % | 0.84Comment: Testing | % | EXTERNAL | | | Eosinophils | performed at [facility];[address] | | LAB | | | | [address] [place] | | | | | | [address] | | | | + + + + + -+ | % Basophils | 0.76Comment: Testing | % | EXTERNAL | | | | performed at [facility];[address] | | LAB | | | | [address] [place] | | | | | | [address] | | | | + + + + + -+ | Absolute | 17.37 (H)Comment: | 1.90 - 7.40 | EXTERNAL | | | Segmented | Testing performed at | K/uL | LAB | | | Neutrophils | [facility];[address] | | | | | | [address];[place] [address] | | | | + + + + + -+ | Absolute | 4.34 (H)Comment: Testing | 1.00 - 3.90 | EXTERNAL | | | Lymphocytes | performed at [facility];[address] | K/uL | LAB | | | | [address];[place] | | | | | | [address] | | | | + + + + + -+ | Absolute | 2.87 (H)Comment: Testing | 0.00 - 0.80 | EXTERNAL | | | Monocytes | performed at [facility];[address] | K/uL | LAB | | | | [address];[place] | | | | | | [address] | | | | + + + + + -+ | Absolute | 0.21Comment: Testing | 0.00 - 0.50 | EXTERNAL | | | Eosinophils | performed at [facility];[address] | [address]uL | LAB | | | | [address];[place] | | | | | | [address] | | | | + + + + + -+ | Absolute | 0.19 (H)Comment: Testing | 0.00 - 0.10 | EXTERNAL | | | Basophils | performed at [facility];[address] | K/uL | LAB | | | | [address];[place] | | | | | | [address] | | | | + + + + + -+ | RBC | 1+Comment: ANISONORMAL | | EXTERNAL | | | Morphology | PLT MORPHTesting | | LAB | | | | performed at [facility];[address] | | | | | | [address];[place] | | | | | | [address] | | | | | | | | | | + + + + + -+ | Na | 133 (L)Comment: Testing | 135 - 143 | EXTERNAL | | | | performed at [facility];[address] | mmol/L | LAB | | | | [address];[place] | | | | | | [address] | | | | + + + + + -+ | K | 3.6Comment: Testing | 3.5 - 4.9 | EXTERNAL | | | | performed at [facility];[address] | mmol/L | LAB | | | | [address];[place] | | | | | | [address] | | | | + + + + + -+ | Cl | 95 (L)Comment: Testing | 99 - 109 mmol/L | EXTERNAL | | | | performed at [facility];[address] | | LAB | | | | [address];[place] | | | | | | [address] | | | | + + + + + -+ | CO2 | 28Comment: Testing | 23 - 32 mmol/L | EXTERNAL | | | | performed at [facility];[address] | | LAB | | | | [address];[place] | | | | | | [address] | | | | + + + + + -+ | Anion Gap | 13Comment: Testing | 5 - 20 mmol/L | EXTERNAL | | | | performed at [facility];[address] | | LAB | | | | [address];[place] | | | | | | [address] | | | | + + + + + -+ | Glucose, | 123 (H)Comment: Testing | 65 - 99 mg/dL | EXTERNAL | | | Fasting | performed at [facility];[address] | | LAB | | | | [address];[place] | | | | | | [address] | | | | + + + + + -+ | BUN | 7 (L)Comment: Testing | 8 - 25 mg/dL | EXTERNAL | | | | performed at [facility];[address] | | LAB | | | | [address];[place] | | | | | | [address] | | | | + + + + + -+ | Creatinine | 0.76Comment: Testing | 0.50 - 1.00 | EXTERNAL | | | | performed at [facility];[address] | mg/dL | LAB | | | | [address];[place] | | | | | | [address] | | | | + + + + + -+ | BUN/Creatin | 10Comment: Testing | | EXTERNAL | | | ine Ratio | performed at [facility];[address] | | LAB | | | | [address] [place];[place] | | | | | | [address] | | | | + + + + + -+ | Calcium | 8.2 (L)Comment: Testing | 8.5 - 10.5 | EXTERNAL | | | | performed at [facility];[address] | mg/dL | LAB | | | | [address];[place] | | | | | | [address] | | | | + + + + + -+ | Protein, | 6.6Comment: Testing | 6.3 - 8.2 g/dL | EXTERNAL | | | Total | performed at [facility];[address] | | LAB | | | | [address];[place] | | | | | | [address] | | | | + + + + + -+ | Albumin | 2.7 (L)Comment: Testing | 3.6 - 5.0 g/dL | EXTERNAL | | | | performed at [facility];[address] | | LAB | | | | [address];[place] | | | | | | [address] | | | | + + + + + -+ | Globulin | 4.0Comment: Testing | 1.3 - 4.9 g/dL | EXTERNAL | | | | performed at [facility];[address] | | LAB | | | | [address];[place] | | | | | | [address] | | | | + + + + + -+ | A/G Ratio | 0.7 (L)Comment: Testing | 1.0 - 2.4 | EXTERNAL | | | | performed at [facility];[address] | | LAB | | | | [address];[place] | | | | | | [address] | | | | + + + + + -+ | Bilirubin | 0.7Comment: Testing | 0.1 - 1.5 mg/dL | EXTERNAL | | | Total | performed at [facility];[address] | | LAB | | | | [address];[place] | | | | | | [address] | | | | + + + + + -+ | ALP, | 251 (H)Comment: Testing | 35 - 115 U/L | EXTERNAL | | | External | performed at [facility];[address] | | LAB | | | | [address];[place] | | | | | | [address] | | | | + + + + + -+ | AST | 33Comment: Testing | 10 - 45 U/L | EXTERNAL | | | | performed at [facility];[address] | | LAB | | | | [address];[place] | | | | | | [address] | | | | + + + + + -+ | ALT | 36Comment: Testing | 10 - 65 U/L | EXTERNAL | | | | performed at [facility];[address] | | LAB | | | | [facility];[place], [place] | | | | | | [address] | | | | + + + [...] | | | | | | at [facility];[address] [facility] | | | | | | vd;[place] [address] | | | | + + + + + -+ | CK, Total | 50Comment: Testing | 30 - 240 U/L | EXTERNAL | | | | performed at [facility];[address] | | LAB | | | | [facility];[place] | | | | | | [address] | | | | + + + [...] | | | | | performed at [facility];[address] | | | | | | [address];[place] | | | | | | [address] | | | | + + + + + -+ | aPTT, | 33 (H)Comment: Testing | 23 - 32 seconds | EXTERNAL | | | Patient | performed at [facility];[address] | | LAB | | | | [address];[place] | | | | | | [address] | | | | + + + + + -+ | CK-MB | 0.6Comment: Testing | 0.5 - 3.6 ng/mL | EXTERNAL | | | | performed at [facility];[address] | | LAB | | | | [address];[place] | | | | | | [address] | | | | + + + [...]
--- OUTSIDE RECORDS SUMMARY | ~2019-03-09 | XMS | Encounter Summary ---
Demographics + + + | Address | [address] | | | [place] [address] | + + + | Home Phone | | + + + | Preferred Language | Unknown | + + + | Marital Status | | + + + | Hinduism Affiliation | Unknown | + + + | Race | Unknown | + + + | Ethnic Group | Unknown | + + + Author + + + | Author | [facility] | | | and [place] | + + + | Organization | [facility] | | [...] Team Providers + +------+ + | Care Paradichlorobenzene Tender Name | Role | Phone | + +------+ + PCP | Unavailable | + +------+ + Encounter Details +--------+ + + + + | Date | Type | Department | Care Team | Description | +--------+ + + + + | 03/01/ | [facility] | [facility] | Conversion | | | 2017 | Encounter | [facility] XRAY | Transaction, | | | | | [address] | Provider Unknown | | | | | [place], [place] | | | | | | [address] | (Fax) | | | | | [phone] | | | +--------+ + + + [...]
--- OUTSIDE RECORDS SUMMARY | ~2019-03-09 | XMS | Encounter Summary ---
Demographics + + + | Address | [address] | | | [place] [address] | + + + | Home Phone | | + + + | Preferred Language | Unknown | + + + | Marital Status | | + + + | Quaker Affiliation | Unknown | + + + | Race | Unknown | + + + | Ethnic Group | Unknown | + + + Author + + + | Author | [facility] | | | and [place] | + + + | Organization | [facility] | | | [...] Team Providers + +------+ + | Care Manager Of Manufacturing Name | Role | Phone | + +------+ + PCP | Unavailable | + +------+ + Encounter Details +--------+ + + + + | Date | Type | Department | Care Team | Description | +--------+ + + + + | /03/ | Orders Only | [facility] | Conversion | | | 2015 | | CONVERSION DEP [address] | Transaction, | | | | [address] | Provider Unknown | | | | | [place], [place] | [phone] | | | | | [address] | | | | | | [phone] | | | +--------+ + + + [...]
--- OUTSIDE RECORDS SUMMARY | ~2019-03-09 | XMS | Clinical Summary ---
Demographics + + + | Address | [address] | | | [place] [address] | + + + | Home Phone | | + + + | Preferred Language | Unknown | + + + | Marital Status | | + + + | Anglican Affiliation | Unknown | + + + | Race | Unknown | + + + | Ethnic Group | Unknown | + + + Author + + + | Author | [facility] | | | and [place] | + + + | Organization | [facility] | | | [...] Team Providers + +------+ + | Care Tinsmith Apprentice Name | Role | Phone | + +------+ + PCP | Unavailable | + +------+ + Allergies + + + + + + | Active Allergy | Reactions | Severity | Noted | Comments | | | | | Date | | + + + + + + | Meperidine | Other (See Comments) | Medium | 04/12/19 | Unknown | | | | | 15 | | + + + + + + | Erythromycin | Other (See Comments) | Medium | 04/12/19 | unknown | | | | | 15 | | + + + + + + | Levofloxacin | Other (See Comments) | Medium | 04/12/19 | Tendinitis., Was | | | | | 15 | prescribed 02/15/17 | | | | | | and tolerated | | | | | | without issues | + + + + + + | Penicillins | Nausea And Vomiting | Low | 04/13/19 | | | | | | 15 | | + + + + + + | Metoclopramide | Anxiety | Medium | 01/02/20 | Agitation, Unknown | | | | | 15 | | + + + + + + Medications + + + +---------+------+------+-------+ | Medication | Sig | Dispensed | Refills | Star | End | Statu | | | | | | t | Date | s | | | | | | Date | | | + + + +---------+------+------+-------+ | omeprazole | Take 40 mg by mouth | | 0 | 01/0 | | Activ | | (PRILOSEC) 40 MG | 2 (two) times daily. | | | 3/20 | | e | | capsule | | | | 15 | | | + + + +---------+------+------+-------+ | predniSONE | Take 15 mg by mouth | | 0 | 04/1 | | Activ | | (DELTASONE) 10 mg | daily. Indications: | | | 0/20 | | e | | tablet | 15 mg | | | 15 | | | + + + +---------+------+------+-------+ | promethazine | Take 25 mg by mouth | | 0 | 07/2 | | Activ | | (PHENERGAN) 25 mg | every 6 (six) hours | | | 8/20 | | e | | tablet | as needed for | | | 15 | | | | | Nausea. | | | | | | + + + +---------+------+------+-------+ | metoprolol | Take 2 tablets by | | 0 | 08/0 | | Activ | | tartrate (LOPRESSOR) | mouth 2 (two) times | | | 2/20 | | e | | 25 mg tablet | daily. | | | 15 | | | + + + +---------+------+------+-------+ | gabapentin | Take 300 mg by mouth | | 0 | 05/1 | | Activ | | (NEURONTIN) 300 mg | 3 (three) times | | | 2/20 | | e | | capsule | daily. | | | 16 | | | + + + +---------+------+------+-------+ | Multiple | Take 1 tablet by | | 0 | 02/10 | | Activ | | Vitamins-Minerals | mouth daily. | | | 04/30 | | e | | (MULTIVITAMIN WITH | | | | 17 | | | | MINERALS) tablet | | | | | | | + + + +---------+------+------+-------+ | Melatonin ([facility] | Take 10 mg by mouth | | 0 | 02/10 | | Activ | | MELATONIN) 5 MG CHEW | nightly as needed. | | | 04/30 | | e | | | | | | 17 | | | + + + +---------+------+------+-------+ | sodium | Take 12 oz by mouth | 354 mL | 0 | 02/10 | | Activ | | sulfate-potassium | See Admin | | | 05/31 | | e | | sulfate-magnesium | Instructions. Please | | | 17 | | | | sulfate (SUPREP | follow your | | | | | | | BOWEL PREP KIT) oral | physicians | | | | | | | solution | instructions for use | | | | | | | | the day prior to | | | | | | | | your colonoscopy. | | | | | | + + + +---------+------+------+-------+ | neomycin 500 mg | Take two 500 mg | 4 | 0 | 11/2 | | Activ | | tablet | tablets by mouth at | tablet | | 2/20 | | e | | | 7 pm and Take two | | | 17 | | | | | 500 mg tablets by | | | | | | | | mouth at 9 pm the | | | | | | | | night prior to your | | | | | | | | surgical procedure. | | | | | | + + + +---------+------+------+-------+ | metroNIDAZOLE | Take one 500 mg. | 2 | 0 | 11/2 | | Activ | | (FLAGYL) 500 MG | Tablet by mouth at 7 | tablet | | 2/20 | | e | | tablet | pm and take one 500 | | | 17 | | | | | mg. Tablet by mouth | | | | | | | | 9 pm the night | | | | | | | | prior to your | | | | | | | | procedure. | | | | | | + + + +---------+------+------+-------+ | scopolamine | Apply to hairless | 1 patch | 0 | 11/2 | | Activ | | (TRANSDERM-SCOP, 1.5 | area behind the ear | | | 2/20 | | e | | MG,) 1 mg/3 days | the night before | | | 17 | | | | patch | your procedure. | | | | | | + + + +---------+------+------+-------+ | lactobacillus | Take 1 packet by | 60 each | 0 | 11/2 | | Activ | | (FLORANEX) | mouth 2 (two) times | | | 2/20 | | e | | | daily. | | | 17 | | | + + + +---------+------+------+-------+ | opium tincture 10 | Take 0.6 mLs by | 72 mL | 0 | 01/0 | | Activ | | mg/mL TINC | mouth 4 (four) times | | | 2/20 | | e | | | daily. | | | 18 | | | + + + +---------+------+------+-------+ Active Problems + + + | Problem | Noted Date | + + + | Smoker | 03/07/2017 | + + + | Chronic narcotic use | 03/07/2017 | + + + | Rectovaginal fistula | 03/01/2017 | + + + + + | Overview: Added automatically from request for surgery [id number] | + + + + + | Hypokalemia | 03/01/2017 | + + + | Anemia | 03/01/2017 | + + + | On total parenteral nutrition (TPN) | 03/01/2017 | + + + | Current chronic use of systemic steroids | 02/11/2017 | + + + | Neuropathy | 02/11/2017 | + + + | Encephalopathy in sepsis | 02/11/2017 | + + + | Immunosuppressed status | 02/11/2017 | + + + | Intestinal infection due to Clostridium difficile | 08/07/2015 | + + + | Hematemesis with nausea | 08/05/2015 | + + + | Coumadin toxicity | 08/05/2015 | + + + + + | Overview: Supra therapeutic INR | + + + + + | Diarrhea | 08/05/2015 | + + + | Crohn disease | 11/10/2014 | + + + | Demyelinating changes in brain | 11/09/2014 | + + + | Immunocompromised state | 11/09/2014 | + + + | Hypertension | 11/07/2014 | + + + | Febrile illness, acute | 11/05/2014 | + + + | Leucocytosis | 11/05/2014 | + + + | Chronic anticoagulation | 11/05/2014 | + + + | Pyelonephritis | 07/21/2014 | + + + | CHF (congestive heart failure) | 07/19/2014 | + + + | GERD (gastroesophageal reflux disease) | 07/19/2014 | + + + | Immunocompromised | 07/19/2014 | + + + | Hypokalemia | 07/19/2014 | + + + | Hypomagnesemia | 07/19/2014 | + + + | HTN (hypertension) | 07/19/2014 | + + + | 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 04/21/2014 | 04/22/2014 | + + + | Intraperitoneal hemorrhage 20 cm x 12 cm x 11 cm 04/22/2014 | 04/22/2014 | + + + | PAF (paroxysmal atrial fibrillation) | 04/15/2014 | + + + | Acute systolic heart failure LVEF 30% | 04/14/2014 | + + + | Narcotic dependence | 04/14/2014 | + + + | Acute respiratory failure | 04/12/2014 | + + + | Crohn's disease | 04/12/2014 | + + + | Microcytic anemia | 04/12/2014 | + + + | COPD (chronic obstructive pulmonary disease) | 04/12/2014 | + + + | 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 | + + + | Acute gastroenteritis | 04/12/2014 | + + + | Pyelonephritis | | + + + | Pyelonephritis | | + + + | Pyelonephritis | | + + + Immunizations + + + + | Name | Administration Dates | Next Due | + + + + | PNEUMOCOCCAL | 04/14/2014 | | | POLYSACCHARIDE | | | | 23-VALENT (PPSV23) | | | + + + + Family History + + +------+ + | Medical History | Relation | Name | Comments | + + +------+ + | Cancer | Brother | | | + + +------+ + | Malig hypertherm | Neg Hx | | | + + +------+ + + +------+ + + | Relation | Name | Status | Comments | + +------+ + + | Brother | | | | + +------+ + + | Brother | | | | + +------+ + + | Father | | | | + +------+ + + | Mother | | | | + +------+ + + Social History + +-------+ +--------+------+ [...] + + + | Blood Pressure | 116/80 | 04/12/2017 8:33 AM | | | | | PST | | + + + + + | Pulse | 81 | 04/12/2017 8:33 AM | | | | | PST | | + + + + + | Temperature | 36.6 C (97.9 F) | 04/12/2017 8:33 AM | | | | | PST [...] Height | 172.7 cm (5' 8") | 04/12/2017 8:33 AM | | | | | PST | | + + + + + | Body Mass Index | 25.81 | 03/12/2017 11:22 AM | | | | | PST | | + + + + + Plan of Treatment + + + + + | Health Maintenance | Due Date | Last Done | Comments | + + + + + | Vaccine: | | | | | Dtap/Tdap/Td (1 - | 5 | | | | Tdap) | | | | + + + + + | Cervical Cancer | | | | | Screening (Pap) | 6 | | | + + + + + | Colorectal Cancer | | | | | Screening | 6 | | | | (Colonoscopy) | | | | + + + + + | Vaccine: Zoster (1 | | | | | of 2) | 6 | | | + + + + + | Breast Cancer | | | | | Screening | 1 | | | + + + + + | Adult Annual | | | | | Wellness Visit | 9 | | | + + + + + | Statin Therapy | | | | | (optimal intensity) | 9 | | | + + + + + | Vaccine: Influenza | | 04/14/2014 | | | (#1) | 9 | | | + + + + + | Vaccine: | Completed | 04/14/2014 | | | Pneumococcal 19-64 | | | | + + + + + | Hepatitis C | Completed | 04/20/2014 | | | Screening | | | | + + + + + Results Not on filefrom Last 3 Months Additional Health Concerns + + + + | Infection | Noted Time | Resolved Time | + + + + | Methicillin-resistant Staphylococcus aureus | 03/02/2017 12:00 AM | | | | PDT | | + + + + Insurance + +--------+ +--------+ +---------+--------+ | Payer | Benefi | Subscriber | Effect | Phone | Address | Type | | | t Plan | ID | brady | | | | | | / | | Dates | | | | | | Group | | | | | | + +--------+ +--------+ +---------+--------+ | MEDICARE | MEDICA | [id number] | 04/11/19 | [phone] | | Medica | | | RE | | 13-Pre | 5 | | re | | | PART A | | sent | | | | | | AND B | | | | | | + +--------+ +--------+ +---------+--------+ + +--------+ +--------+ + + | Guarantor Name | Accoun | Relation to | Date | Phone | Billing Address | | | t Type | Patient | of | | | | | | | | | | + +--------+ +--------+ + + | Smita Willingham | Person | Self [birth year] | [address] | | | al/Fam | | 1956 | [phone] | [place] | | | b[place]ca | | | [address] (Home) | [address] | + +--------+ +--------+ + +
--- OUTSIDE RECORDS SUMMARY | ~2019-03-09 | XMS | Encounter Summary ---
Demographics + + + | Address | [address] | | | [place] [address] | + + + | Home Phone [...] + + + | Author | [facility] | + + + | Organization | [facility] | + + + | Address | Unknown | + + + | Phone | Unavailable | + + + Support + + + + + | Name | Relationship | Address | Phone | + + + + + | Kole Willingham | [place] | [address] | | | | | [place], [place] | | | | | [address] | | + + + + + | Cami Sawyer | ECON | Unknown | | + + + + + Care Team Providers + +------+ + | Care Security Police Name | Role | Phone | + [...] 03/17/ | Anesthesia | 6A Intra Op [facility] | Ryan Dubois, | | | 2011 | Event | [facility] | [address] | | | | | Admitting Desk | [address] | | | | | Located on the 9 | [place], [place] | | | | | floor [address] | [address] | | | | | [address] | [phone] | | | | | [place], [place] | | | | | | [address] | Bigg Smalls MD | | | | | | [address] | | | | | | [address] | | | | | | [facility] [place] | | | | | | [address] | | | | | | [phone] | | | | | | | [...] | Froylan Vázquez CRNA 15 min. Break [phone] | | | 9 | | | [...] Smith RN | | Tanvi | | MANUFACTURING LAB TECHNICIAN | | | y Cath | | [...] Cole RN | | Periph | | MANUFACTURING LAB TECHNICIAN | | | eral | | | [...]
--- OUTSIDE RECORDS SUMMARY | ~2019-03-09 | XMS | Encounter Summary ---
Demographics + + + | Address | [address] | | | [place] [address] | + + + | Home Phone | | + + + | Preferred Language | Unknown | + + + | Marital Status | | + + + | Pentecostal Affiliation | Unknown | + + + [...] Team Providers + +------+ + | Care National Expansion Recruiter Name | Role | Phone | + +------+ + PCP | Unavailable | + +------+ + Encounter Details +--------+ + + + + | Date | Type | Department | Care Team | Description | +--------+ + + + + | 10/16/ | Hospital | [facility] | Enrique Bocanegra, | Rectovaginal fistula | | 2016 | Encounter | [facility] | [address] | | | | | [address] | [address] | | | | | [place], [place] | [place] [address] | | | | | [address] | [phone] | | | | | [phone] | | | +--------+ + + + [...] [id number] Date of Service: 10/17/152009 Status: Signed Buffer Automatic: Osvaldo Dial RN (Registered Nurse) Patient and [...] interpretation and technical preparation was performed by [facility] | | | [facility], [address], | | | [place] [address] (Honing Machine Operator Semiautomatic: Raphael Yee M.D.; IA#: | | | [id number]). Diagnostician: Honey Mcduffie MD Pathologist | | [...]
--- OUTSIDE RECORDS SUMMARY | ~2019-03-09 | XMS | Encounter Summary ---
Demographics + + + | Address | [address] | | | [place] [address] | + + + | Home Phone | | + + + | Preferred Language | Unknown | + + + | Marital Status | | + + + | Uatsdin Affiliation | Unknown | + + + | Race | Unknown | + + + | Ethnic Group | Unknown | + + + Author + + + | Author | [facility] | | | and [place] | + + + | Organization | [facility] | | | [...] Team Providers + +------+ + | Care Front Desk Attendant Name | Role | Phone | + +------+ + PCP | Unavailable | + +------+ + Encounter Details +--------+ + + + + | Date | Type | Department | Care Team | Description | +--------+ + + + + | 04/10/ | Hospital | [facility] | Ro Davidson MD | Pyelonephritis | | 2015 - | Encounter | MEDICAL CENTER | [address] | | | | | CLINICAL DECISION | [place] [address] | | | 07/22/ | | [address] | [phone] | | | 2014 | | [place], [place] | | | | | | [phone] | | | | | | [phone] | | | +--------+ + + + [...] of this note might be different from valentin espinoza. Discharge Summaries by Compa Jules MD at 07/22/14 2546 Author: Compa Jules MD Service: (none) Author Type: Physician Filed: 08/14/14 1203 Date of Service: 07/22/14 0995 Status: Signed Woodworker: Compa Jules MD (Physician) Related Notes: Original Note by Compa Jules MD (Physician) filed at 07/22/14 1259 [facility]: Hospitalist Physician Discharge Summary Patient ID: Mackenzie Willingham [id number] 58 y.o. 1955 Admit date: 07/19/2014 Discharge [...] Follow up: Neel Fernandes MD [address] [place] [address] [place] [address] Raphael Gan DO [address] 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 Significant Diagnostic Studies: X-ray Chest 1 View 07/19/2014 This is a non-reportable procedure without a radiologist report and is used fo r image storage only Ultrasound Renal 07/19/2014 MACKENZIE [place]ING[place] US KIDNEYS AND BLADDER HISTORY: [...] MEQ tablet Refills: 0 Commonly known as: KARLA DANGELO predniSONE 10 MG tablet Refills: 0 Commonly [...] are the prescriptions that you need to flower buncher or picker. You may get the following medications [...] Progress Note by Leelee Fermin RN at 07/22/141334 Author: Leelee Fermin RN Service: (none) Author Type: Registered Nurse Filed: 07/22/14 0947 Date of Service: 07/22/141334 Status: Signed Woodworker: Leelee Fermin RN (Registered Nurse) Patient received discharge teaching with no questions or concerns. Patient left via private vehicle with daughter. Leelee Fermin RN onver roshan Transaction, Provider Unknown - 07/22/2014 1:06 PM PDT Case Management by Kateryna Salazar RN at 07/22/14 8925 Author: Kateryna Salazar RN Service: (none) Author Type: Registered Nurse Filed: 07/22/14 1307 Date of Service: 07/22/14 1306 Status: Signed Woodworker: Kateryna Salazar RN (Registered Nurse) Patient requesting [...] Date of Service: 07/22/14 1155 Status: Signed Woodworker: Nadiya Smith PT (Physical Therapist) 07/22/14 1155 PT Last Visit PT Received On 07/22/14 Requires PT Follow Up PT eval not indicated (see comments) Other Comments Comments Pt discussed during multidisciplinary rounds. RN/MD report that pt near baseline w/walker. No skilled acute PT needs indicated. Discussed order for resuming outpt PT. Tony l d/c acute PT at this time. Raphael Roca DO - 07/22/2014 10:43 AM PDTFormatting of this note might be different from the briana gikamila. Progress Notes by Raphael Gan DO at 07/22/14 1043 Author: Raphael Gan DO Service: (none) Author Type: Physician Filed: 07/22/14 1113 Date of Service: 07/22/14 1043 Status: Signed Woodworker: Raphael Gan DO (Physician) [facility]: Infectious Disease Progress Note Hospital Day: LOS: 3 days Post-Op Day: * No surgery found * SUBJECTIVE Patient Summary: 58 y.o. female with significant past medical history of Crohn's dis ease on chronic prednisone 15 mg daily, COPD, gastroesophageal reflux disease, allergies to penicillin, levofloxacin, erythromycin who presented to [facility] with we akness and urinary incontinence. Initial [...] 07/22/2014 EGFR >60 07/22/2014 Urine culture from [facility] shows pansensitive Escherichia coli with the exce [...] effect but not a true allergic reaction. Antonia he has tolerated cephalexin in the past, so [...] Notes by Compa Jules MD at 07/21/14 1696 Author: Compa Jules MD Service: (none) Author Type: Physician Filed: 07/21/14 1124 Date of Service: 07/21/14 1102 Status: Signed Woodworker: Compa Jules MD (Physician) [facility]: Hospitalist Progress Note Hospital Day: LOS: 2 days Consultants: Treatment Team: Consulting Physician: Raphael Gan DO Admitting Provider: Ro Davidson MD The first problem in assessment is the principal problem. ASSESSMENT/ PLAN 1. Systemic inflammatory response syndrome, urinary tract infection. Leukocytosis improving (patient does have some chronic leukocytosis). Continue with vancomycin, aztreonam for now. Received cultures, blood and urine from [place]. Blood cultures negative so far. Urine culture positive for lactose [place], sensitivities pending. Patient has multiple allergie s. [...] 4 months. 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 5. Chronic congestive heart failure, currently stable. Not decompensated at this point. Disposition: Home. 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 Attempted to eat breakfast, using the commode to toil et, took shower. Still complains of headache and nausea. Vale Salgado onver roshan Transaction, Provider Unknown - 07/21/2014 9:16 AM PDT Case Management by LEVI Jerry at 07/21/14 0916 Author: LEVI Jerry Service: (none) Author Type: Weatherization Coordinator Filed: 07/21/1420 Date of Service: 07/21/14915 Status: Signed Woodworker: LEVI Jerry (Weatherization Coordinator) 07/21/14913 Discharge Planning Evaluation Admitting Diagnosis (Sepsis [...] care /care: Pt lives with her in [place]. Can provide all self-care/ADLs patients primary care [...] disease with hiatal hernia , Patient's insurance: Medicare[facility] PT recommendations / DME recommendations: N/A - No DME indicated at this time Community resources: Patient just started PT at the "rec center" in [place]. Assistance in transportation: Family can transport home. CM also spoke with pt's RN, Vale and she did not identify any d/c needs at this time. LEVI Jerry Compa Nam MD - 07/20/2014 4:57 PM PDTFormatting of this note might be different from the origi nal. Progress Notes by Compa Jules MD at 07/20/14 208 Author: Compa Jules MD Service: (none) Author Type: Physician Filed: 08/04/14 1307 Date of Service: 07/20/141656 Status: Signed Woodworker: Compa Jules MD (Physician) Related Notes: Original Note by Compa Jules MD (Physician) filed at 07/20/14 1700 [facility]: Hospitalist Progress Note Hospital Day: LOS: [...] 4 months. 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 5. Chronic congestive heart failure, currently stable. Not decompensated at this point. Disposition: Home. 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 Initiation of Vancomycin Pharmacy Dosing Mackenzie Willingham 58 y.o. female 1.753 m (5' 9") 64.32 kg (141 lb 12.8 oz) Body mass index is 20.93 kg/(m^2). Kerrick Body Weight: 66.2 kg Adjusted Body Weight: 64.3 kg CREATININE Date Value Ref Range Status 07/20/2014 0.76 0.50 - 1.00 mg/dL Final Testing performed at [facility];[place] [address] Estimated CrCl : CREATININE: 0.76 (07/20/14 0354) Estimated creatinine clearance - 81.9 mL/min Indications: UTI Dose per Protocol: Loading Dose: Vancomycin 1000 mg (15.6 mg/kg TBW) IV Q12hr First Dose to be Given: 219907-19-2014 Vancomycin Trough Due: 209907-21-2014 Goal Trough for Vancomycin: 10-20 mcg/mL Pharmacist: Paula Barnes 07/20/2014 7:12 AM onver roshan Main, Provider Unknown - 07/19/2014 8:56 PM PDT Progress Notes by Hamilton Drummond RPH at 07/19/142055 Author: Hamilton Drummond RPH Service: (none) Author Type: Pharmacist Filed: 07/19/142055 Date of Service: 07/19/142055 Status: Signed Woodworker: Hamilton Drummond RPH (Pharmacist) Note ccl 90.2ml/min meds reviewed Pharmacy will follow [facility] 2054 docume nted in this encounter Plan of Treatment +--------+---------+ + + + | Date | Type | Specialty | Care Team | Description | +--------+---------+ + + + | 03/27/ | Office | General Surgery | [place], | | | 2018 | Visit | | [address] | | | | | | [facility] | | | | | | [place] [address] | | | | | | [phone] | | | | | | | [...] | Testing performed | | | at [facility], [address] [place] [address] | | + + + + +---------+ [...] | | | | | [place] [address] | | | | + + + + + + | Clarity | CLEARComment: Testing | | EXTERNAL | | | | performed at [facility], [address] | | LAB | | | | [address], | | | | | | [place] [address] | | | | + + + + + + | Specific | 1.009Comment: Testing | 1.002 - 1.030 | EXTERNAL | | | Neche | performed at [facility], [address] | | LAB | | | | [address], | | | | | | [place] [address] | | | | + + + + + + | Leukocyte | MODERATE (A)Comment: | | EXTERNAL | | | Esterase, | Testing performed at | | LAB | | | Urine | [facility], [address] | | | | | | [place] | | | | | | [address] | | | | + + + + + + | Nitrite, | NEGATIVEComment: Testing | | EXTERNAL | | | Urine | performed at [facility], [address] | | LAB | | | | [address], | | | | | | [place] [address] | | | | + + + + + + | Urobilinoge | 0.2Comment: Testing | mg/dL | EXTERNAL | | | n, Urine | performed at [facility], [address] | | LAB | | | | [address], | | | | | | [place] [address] | | | | + + + + + + | Protein, | NEGATIVEComment: Testing | mg/dL | EXTERNAL | | | Urine | performed at [facility], [address] | | LAB | | | | [address], | | | | | | [place] [address] | | | | + + + + + + | pH, Urine | 6.0Comment: Testing | 5.0 - 8.0 | EXTERNAL | | | | performed at [facility], [address] | | LAB | | | | [address], | | | | | | [place] [address] | | | | + + + + + + | Blood, | NEGATIVEComment: Testing | | EXTERNAL | | | Urine | performed at [facility], [address] | | LAB | | | | [address], | | | | | | [place] [address] | | | | + + + + + + | Ketones | NEGATIVEComment: Testing | mg/dL | EXTERNAL | | | | performed at [facility], [address] | | LAB | | | | [address], | | | | | | [place] [address] | | | | + + + + + + | Bilirubin, | NEGATIVEComment: Testing | | EXTERNAL | | | Urine | performed at [facility], [address] | | LAB | | | | [address], | | | | | | [place] [address] | | | | + + + + + + | Glucose, | NEGATIVEComment: Testing | mg/dL | EXTERNAL | | | Urine | performed at [facility], [address] | | LAB | | | | [address], | | | | | | [place] [address] | | | | + + + [...] | | | | | [place] [address] | | | | + + + + + + | RBC, UA | 16-25Comment: Testing | 0 - 5 /hpf | EXTERNAL | | | | performed at [facility], [address] | | LAB | | | | [address], | | | | | | [place] [address] | | | | + + + + + + | Epithelial | 26-50Comment: Testing | /lpf | EXTERNAL | | | Cells | performed at [facility], [address] | | LAB | | | | [address], | | | | | | [place] [address] | | | | + + + + + + | Bacteria, | NONE SEENComment: | | EXTERNAL | | | UA | CULTURE TO FOLLOWTesting | | LAB | | | | performed at [facility], [address] | | | | | | [address], | | | | | | [place] [address] | | | | + + + + + + | HYALINE | NONE SEENComment: | | EXTERNAL | | | CASTS UA | Testing performed at | | LAB | | | | [facility], [address] | | | | | | [place] | | | | | | [address] | | | | + + + [...] | | | performed at [facility] | | | | | | [facility];[place], [place] | | | | | | [address] | | | | + + + [...] + +---------+ + + External Lab: CBC (07/22/2014 3:44 AM PDT) + + + [...] | | | | [facility], [address] | | | | | | [place] | | | | | | [address] | | | | + + + + + + | RED CELL | 4.06Comment: Testing | 3.70 - 5.10 | EXTERNAL | | | COUNT | performed at [facility], [address] | M/uL | LAB | | | | [address], | | | | | | [place] [address] | | | | + + + + + + | Hgb | 12.5Comment: Testing | 11.3 - 15.5 | EXTERNAL | | | | performed at [facility], [address] | g/dL | LAB | | | | [address], | | | | | | [place] [address] | | | | + + + + + + | Hematocrit, | 40.1Comment: Testing | 34.0 - 46.0 % | EXTERNAL | | | POC | performed at [facility], [address] | | LAB | | | [address], | | | | | | [place] [address] | | | | + + + + + + | MCV | 98.6Comment: Testing | 80.0 - 100.0 fl | EXTERNAL | | | | performed at [facility], [address] | | LAB | | | | [address], | | | | | | [place] [address] | | | | + + + + + + | MCH | 30.8Comment: Testing | 27.0 - 34.0 pg | EXTERNAL | | | | performed at [facility], [address] | | LAB | | | | [address], | | | | | | [place] [address] | | | | + + + + + + | MCHC | 31.2 (L)Comment: Testing | 32.0 - 35.5 | EXTERNAL | | | | performed at [facility], [address] | g/dL | LAB | | | | [address], | | | | | | [place] [address] | | | | + + + + + + | RDW-CV | 55.1 (H)Comment: Testing | 37 - 53 fl | EXTERNAL | | | | performed at [facility], [address] | | LAB | | | | [address], | | | | | | [place] [address] | | | | + + + + + + | Platelet | 309Comment: Testing | 150 - 400 K/uL | EXTERNAL | | | Count | performed at [facility], [address] | | LAB | | | Plasma | [address], | | | | | | [place] [address] | | | | + + + + + + | MPV | 8.7Comment: Testing | fl | EXTERNAL | | | | performed at [facility], [address] | | LAB | | | | [address], | | | | | | [place] [address] | | | | + + + + + + | Differentia | AUTOMATEDComment: | | EXTERNAL | | | l Type | Testing performed at | | LAB | | | | [facility], [address] | | | | | | [place] | | | | | | [address] | | | | + + + + + + | % Segmented | 72.50Comment: Testing | % | EXTERNAL | | | | performed at [facility], [address] | | LAB | | | Neutrophils | [address], | | | | | | [place] [address] | | | | + + + + + + | % | 19.86Comment: Testing | % | EXTERNAL | | | Lymphocytes | performed at [facility], [address] | | LAB | | | | [address], | | | | | | [place] [address] | | | | + + + + + + | % Monocytes | 7.00Comment: Testing | % | EXTERNAL | | | | performed at [facility], [address] | | LAB | | | | [address], | | | | | | [place] [address] | | | | + + + + + + | % | 0.21Comment: Testing | % | EXTERNAL | | | Eosinophils | performed at [facility], [address] | | LAB | | | | [address], | | | | | | [place] [address] | | | | + + + + + + | % Basophils | 0.43Comment: Testing | % | EXTERNAL | | | | performed at [facility], [address] | | LAB | | | | [address], | | | | | | [place] [address] | | | | + + + + + + | Absolute | 8.17 (H)Comment: Testing | 1.90 - 7.40 | EXTERNAL | | | Segmented | performed at [facility], [address] | K/uL | LAB | | | Neutrophils | [address], | | | | | | [place] [address] | | | | + + + + + + | Absolute | 2.24Comment: Testing | 1.00 - 3.90 | EXTERNAL | | | Lymphocytes | performed at [facility], [address] | K/uL | LAB | | | | [address], | | | | | | [place] [address] | | | | + + + + + + | Absolute | 0.79Comment: Testing | 0.00 - 0.80 | EXTERNAL | | | Monocytes | performed at [facility], [address] | K/uL | LAB | | | | [address], | | | | | | [place] [address] | | | | + + + + + + | Absolute | 0.02Comment: Testing | 0.00 - 0.50 | EXTERNAL | | | Eosinophils | performed at [facility], [address] | K/uL | LAB | | | | [address], | | | | | | [place] [address] | | | | + + + + + + | Absolute | 0.05Comment: Testing | 0.00 - 0.10 | EXTERNAL | | | Basophils | performed at [facility], [address] | K/uL | LAB | | | | [address], | | | | | | [place] [address] | | | | + + + [...] EXTERNAL | | | | performed at [facility], [address] | | LAB | | | | [address], | | | | | | [place] [address] | | | | + + + [...] EXTERNAL | | | | performed at [facility], [address] | | LAB | | | | [address], | | | | | | [place] [address] | | | | + + + [...] | | | | | [place] [address] | | | | + + + + + + | K | 3.9Comment: Testing | 3.5 - 4.9 | EXTERNAL | | | | performed at [facility], [address] | mmol/L | LAB | | | | [address], | | | | | | [place] [address] | | | | + + + + + + | Cl | 106Comment: Testing | 99 - 109 mmol/L | EXTERNAL | | | | performed at [facility], [address] | | LAB | | | | [address], | | | | | | [place] [address] | | | | + + + + + + | CO2 | 20 (L)Comment: Testing | 23 - 32 mmol/L | EXTERNAL | | | | performed at [facility], [address] | | LAB | | | | [address], | | | | | | [place] [address] | | | | + + + + + + | Anion Gap | 8Comment: Testing | 5 - 20 mmol/L | EXTERNAL | | | | performed at [facility], [address] | | LAB | | | | [address], | | | | | | [place] [address] | | | | + + + + + + | Glucose, | 98Comment: Testing | 65 - 99 mg/dL | EXTERNAL | | | Fasting | performed at [facility], [address] | | LAB | | | | [address], | | | | | | [place] [address] | | | | + + + + + + | BUN | 19Comment: Testing | 8 - 25 mg/dL | EXTERNAL | | | | performed at [facility], [address] | | LAB | | | | [address], | | | | | | [place] [address] | | | | + + + + + + | Creatinine | 0.69Comment: Testing | 0.50 - 1.00 | EXTERNAL | | | | performed at [facility], [address] | mg/dL | LAB | | | | [address], | | | | | | [place] [address] | | | | + + + + + + | BUN/Creatin | 28Comment: Testing | | EXTERNAL | | | ine Ratio | performed at [facility], [address] | | LAB | | | | [address], | | | | | | [place] [address] | | | | + + + + + + | Calcium | 8.5Comment: Testing | 8.5 - 10.5 | EXTERNAL | | | | performed at [facility], [address] | mg/dL | LAB | | | | [address], | | | | | | [place] [address] | | | | + + + + + + | Protein, | 5.9 (L)Comment: Testing | 6.3 - 8.2 g/dL | EXTERNAL | | | Total | performed at [facility], [address] | | LAB | | | | [address], | | | | | | [place] [address] | | | | + + + + + + | Albumin | 2.8 (L)Comment: Testing | 3.6 - 5.0 g/dL | EXTERNAL | | | | performed at [facility], [address] | | LAB | | | | [address], | | | | | | [place] [address] | | | | + + + + + + | Globulin | 3.1Comment: Testing | 1.3 - 4.9 g/dL | EXTERNAL | | | | performed at [facility], [address] | | LAB | | | | [address], | | | | | | [place] [address] | | | | + + + + + + | A/G Ratio | 0.9 (L)Comment: Testing | 1.0 - 2.4 | EXTERNAL | | | | performed at [facility], [address] | | LAB | | | | [address], | | | | | | [place] [address] | | | | + + + + + + | Bilirubin | 0.4Comment: Testing | 0.1 - 1.5 mg/dL | EXTERNAL | | | Total | performed at [facility], [address] | | LAB | | | | [address], | | | | | | [place] [address] | | | | + + + + + + | ALP, | 124 (H)Comment: Testing | 35 - 115 U/L | EXTERNAL | | | External | performed at [facility], [address] | | LAB | | | | [address], | | | | | | [place] [address] | | | | + + + + + + | AST | 18Comment: Testing | 10 - 45 U/L | EXTERNAL | | | | performed at [facility], [address] | | LAB | | | | [address], | | | | | | [place] [address] | | | | + + + + + + | ALT | 13Comment: Testing | 10 - 65 U/L | EXTERNAL | | | | performed at [facility], [address] | | LAB | | | | [address], | | | | | | [place] [address] | | | | + + + [...] | | | | | | at [facility], [address] | | | | | | [address], | | | | | | [place] [address] | | | | + + + [...] | | | performed at [facility] | | | | | | [facility];[place], [place] | | | | | | [address] | | | | + + + [...] K/uL | LAB | | | | [facility];[address];[place] [address] | | | | + + + + + + | RED CELL | 4.10Comment: Testing | 3.70 - 5.10 | EXTERNAL | | | COUNT | performed at [facility];[address] | M/uL | LAB | | | | [address];[place] | | | | | | [address] | | | | + + + + + + | Hgb | 12.9Comment: Testing | 11.3 - 15.5 | EXTERNAL | | | | performed at [facility];[address] | g/dL | LAB | | | | [address];[place] | | | | | | [address] | | | | + + + + + + | Hematocrit, | 40.0Comment: Testing | 34.0 - 46.0 % | EXTERNAL | | | POC | performed at [facility];[address] | | LAB | | | | [address];[place] | | | | | | [address] | | | | + + + + + + | MCV | 97.6Comment: Testing | 80.0 - 100.0 fl | EXTERNAL | | | | performed at [facility];[address] | | LAB | | | | [address];[place] | | | | | | [address] | | | | + + + + + + | MCH | 31.4Comment: Testing | 27.0 - 34.0 pg | EXTERNAL | | | | performed at [facility];[address] | | LAB | | | | [address];[place] | | | | | | [address] | | | | + + + + + + | MCHC | 32.1Comment: Testing | 32.0 - 35.5 | EXTERNAL | | | | performed at [facility];[address] | g/dL | LAB | | | | [address];[place] | | | | | | [address] | | | | + + + + + + | RDW-CV | 56.0 (H)Comment: Testing | 37 - 53 fl | EXTERNAL | | | | performed at [facility];[address] | | LAB | | | | [address];[place] | | | | | | [address] | | | | + + + + + + | Platelet | 323Comment: Testing | 150 - 400 K/uL | EXTERNAL | | | Count | performed at [facility];[address] | | LAB | | | Plasma | [address];[place] | | | | | | [address] | | | | + + + + + + | MPV | 7.9Comment: Testing | fl | EXTERNAL | | | | performed at [facility];[address] | | LAB | | | | [address];[place] | | | | | | [address] | | | | + + + + + + | Differentia | AUTOMATEDComment: | | EXTERNAL | | | l Type | Testing performed at | | LAB | | | | [facility];[address];[place] [address] | | | | + + + + + + | % Segmented | 72.96Comment: Testing | % | EXTERNAL | | | | performed at [facility];[address] | | LAB | | | Neutrophils | [address];[place] | | | | | | [address] | | | | + + + + + + | % | 19.69Comment: Testing | % | EXTERNAL | | | Lymphocytes | performed at [facility] [place] | | [place] | | | | [address];[place] | | | | | | [address] | | | | + + + + + + | % Monocytes | 6.53Comment: Testing | % | EXTERNAL | | | | performed at [facility] [place] | | [place] | | | | [address];[place] | | | | | | [address] | | | | + + + + + + | % | 0.04Comment: Testing | % | EXTERNAL | | | Eosinophils | performed at [facility] [place] | | LAB | | | | [address];[place] | | | | | | [address] | | | | + + + + + + | % Basophils | 0.78Comment: Testing | % | EXTERNAL | | | | performed at [facility] | | LAB | | | | [address];[place] | | | | | | [address] | | | | + + + + + + | Absolute | 9.79 (H)Comment: Testing | 1.90 - 7.40 | EXTERNAL | | | Segmented | performed at [facility];888 | K/uL | LAB | | | Neutrophils | [address];[place] | | | | | | [address] | | | | + + + + + + | Absolute | 2.64Comment: Testing | 1.00 - 3.90 | EXTERNAL | | | Lymphocytes | performed at [facility];888 | K/uL | LAB | | | | [address];[place] | | | | | | [address] | | | | + + + + + + | Absolute | 0.88 (H)Comment: Testing | 0.00 - 0.80 | EXTERNAL | | | Monocytes | performed at [facility];888 | K/uL | LAB | | | | [address];[place] | | | | | | [address] | | | | + + + + + + | Absolute | 0.01Comment: Testing | 0.00 - 0.50 | EXTERNAL | | | Eosinophils | performed at [facility];888 | K/uL | LAB | | | | [address];[place] | | | | | | [address] | | | | + + + + + + | Absolute | 0.11 (H)Comment: Testing | 0.00 - 0.10 | EXTERNAL | | | Basophils | performed at [facility];[address] | K/uL | LAB | | | | [address];[place], [place] | | | | | | [address] | | | | + + + [...] | | | performed at [facility] | | LAB | | | | [address];[place] | | | | | | [address] | | | | + + + [...] | | | performed at [facility];8 | | LAB | | | | [facility], [place] | | | | | | [address] | | | | + + + [...] | | | performed at [facility];888 | mmol/L | LAB | | | | [address];[place] | | | | | | [address] | | | | + + + + + + | K | 4.0Comment: Testing | 3.5 - 4.9 | EXTERNAL | | | | performed at [facility];888 | mmol/L | LAB | | | | [address];[place] | | | | | | [address] | | | | + + + + + + | Cl | 110 (H)Comment: Testing | 99 - 109 mmol/L | EXTERNAL | | | | performed at [facility];[address] | | LAB | | | | [address];[place] | | | | | | [address] | | | | + + + + + + | CO2 | 23Comment: Testing | 23 - 32 mmol/L | EXTERNAL | | | | performed at [facility];[address] | | LAB | | | | [address];[place] | | | | | | [address] | | | | + + + + + + | Anion Gap | 12Comment: Testing | 5 - 20 mmol/L | EXTERNAL | | | | performed at [facility];[address] | | LAB | | | | [address];[place] | | | | | | [address] | | | | + + + + + + | Glucose, | 97Comment: Testing | 65 - 99 mg/dL | EXTERNAL | | | Fasting | performed at [facility];[address] | | LAB | | | | [address];[place] | | | | | | [address] | | | | + + + + + + | BUN | 19Comment: Testing | 8 - 25 mg/dL | EXTERNAL | | | | performed at [facility];[address] | | LAB | | | | [address];[place] | | | | | | [address] | | | | + + + + + + | Creatinine | 0.84Comment: Testing | 0.50 - 1.00 | EXTERNAL | | | | performed at [facility];888 | mg/dL | LAB | | | | [address];[place] | | | | | | [address] | | | | + + + + + + | BUN/Creatin | 23Comment: Testing | | EXTERNAL | | | ine Ratio | performed at [facility];[address] | | LAB | | | | [address];[place] | | | | | | [address] | | | | + + + + + + | Calcium | 8.1 (L)Comment: Testing | 8.5 - 10.5 | EXTERNAL | | | | performed at [facility];888 | mg/dL | LAB | | | | [address];[place] | | | | | | [address] | | | | + + + + + + | Protein, | 6.5Comment: Testing | 6.3 - 8.2 g/dL | EXTERNAL | | | Total | performed at [facility];[address] | | LAB | | | | [address];[place] | | | | | | [address] | | | | + + + + + + | Albumin | 2.4 (L)Comment: Testing | 3.6 - 5.0 g/dL | EXTERNAL | | | | performed at [facility];[address] | | LAB | | | | [address];[place] | | | | | | [address] | | | | + + + + + + | Globulin | 4.1Comment: Testing | 1.3 - 4.9 g/dL | EXTERNAL | | | | performed at [facility];[address] | | LAB | | | | [address];[place] | | | | | | [address] | | | | + + + + + + | A/G Ratio | 0.6 (L)Comment: Testing | 1.0 - 2.4 | EXTERNAL | | | | performed at [facility];[address] | | LAB | | | | [address];[place] | | | | | | [address] | | | | + + + + + + | Bilirubin | 0.5Comment: Testing | 0.1 - 1.5 mg/dL | EXTERNAL | | | Total | performed at [facility];[address] | | LAB | | | | [address];[place] | | | | | | [address] | | | | + + + + + + | ALP, | 164 (H)Comment: Testing | 35 - 115 U/L | EXTERNAL | | | External | performed at [facility];[address] | | LAB | | | | [address];[place] | | | | | | [address] | | | | + + + + + + | AST | 18Comment: Testing | 10 - 45 U/L | EXTERNAL | | | | performed at [facility];[address] | | LAB | | | | [address];[place] | | | | | | [address] | | | | + + + + + + | ALT | 19Comment: Testing | 10 - 65 U/L | EXTERNAL | | | | performed at [facility];[address] | | LAB | | | | [address];[place] | | | | | | [address] | | | | + + + [...] | | | | | | at [facility];[address] [place] [address] | | | | | | [facility];[place] [address] | | | | + + + [...] | | | | | | ACUTE DE Testing | | | | | | performed at [facility];[address] | | | | | | [address];[place], [place] | | | | | | [address] | | | | + + + [...] | | | performed at [facility] | | LAB | | | | [address] [facility];[place], [place] | | | | | | [address] | | | | + + + [...] | | | | | | at [facility];[address] [place] [address] | | | | | | [facility];[place] [address] | | | | + + + [...] | | | performed at [facility] | | | | | | [address] [facility];[place], [place] | | | | | | [address] | | | | + + + [...] [place] | | | | | | [address] | | | | + + + + + + | RED CELL | 4.76Comment: Testing | 3.70 - 5.10 | EXTERNAL | | | COUNT | performed at [facility], [address] | M/uL | LAB | | | | [address], | | | | | | [place] [address] | | | | + + + + + + | Hgb | 15.1Comment: Testing | 11.3 - 15.5 | EXTERNAL | | | | performed at [facility], [address] | g/dL | LAB | | | | [address], | | | | | | [place] [address] | | | | + + + + + + | Hematocrit, | 45.6Comment: Testing | 34.0 - 46.0 % | EXTERNAL | | | POC | performed at [facility], [address] | | LAB | | | | [address], | | | | | | [place] [address] | | | | + + + + + + | MCV | 95.9Comment: Testing | 80.0 - 100.0 fl | EXTERNAL | | | | performed at [facility], [address] | | LAB | | | | [address], | | | | | | [place] [address] | | | | + + + + + + | MCH | 31.7Comment: Testing | 27.0 - 34.0 pg | EXTERNAL | | | | performed at [facility], [address] | | LAB | | | | [address], | | | | | | [place] [address] | | | | + + + + + + | MCHC | 33.1Comment: Testing | 32.0 - 35.5 | EXTERNAL | | | | performed at [facility], [address] | g/dL | LAB | | | | [address], | | | | | | [place] [address] | | | | + + + + + + | RDW-CV | 53.8 (H)Comment: Testing | 37 - 53 fl | EXTERNAL | | | | performed at [facility], [address] | | LAB | | | | [address], | | | | | | [place] [address] | | | | + + + + + + | Platelet | 355Comment: Testing | 150 - 400 K/uL | EXTERNAL | | | Count | performed at [facility], [address] | | LAB | | | Plasma | [address], | | | | | | [place] [address] | | | | + + + + + + | MPV | 8.4Comment: Testing | fl | EXTERNAL | | | | performed at [facility], [address] | | LAB | | | | [address], | | | | | | [place] [address] | | | | + + + + + + | Differentia | MANUALComment: Testing | | EXTERNAL | | | l Type | performed at [facility], [address] | | LAB | | | | [address], | | | | | | [place], [place] [address] | | | | + + + + + + | Segmented | 87Comment: Testing | % | EXTERNAL | | | Neutrophils | performed at [facility], [address] | | LAB | | | Manual | [address], | | | | | | [place] [address] | | | | + + + + + + | % Bands | 6Comment: Testing | % | EXTERNAL | | | | performed at [facility], [address] | | LAB | | | | [address], | | | | | | [place], [place] [address] | | | | + + + + + + | Lymphocytes | 7Comment: Testing | % | EXTERNAL | | | Manual | performed at [facility], [address] | | LAB | | | | [address], | | | | | | [place] [address] | | | | + + + + + + | Absolute | 12.66 (H)Comment: | 1.90 - 7.40 | EXTERNAL | | | Neutrophils | Testing performed at | K/uL | LAB | | | | [facility], [address] | | | | | | [place] | | | | | | [address] | | | | + + + + + + | Bands | 0.87 (H)Comment: Testing | 0.00 - 0.20 | EXTERNAL | | | Manual | performed at [facility], [address] | K/uL | LAB | | | | [address], | | | | | | [place] [address] | | | | + + + + + + | Absolute | 1.02Comment: Testing | 1.00 - 3.90 | EXTERNAL | | | Lymphocytes | performed at [facility], [address] | K/uL | LAB | | | | [address] [place], | | | | | | [place] [address] | | | | + + + + + + | RBC | NORMAL PLT MORPHComment: | | EXTERNAL | | | Morphology | NORMAL RBC MORPHTesting | | LAB | | | | performed at [facility], [address] | | | | | | [address] [facility], | | | | | | [place] [address] | | | | + + + [...] | | | performed at [facility];[address] | | LAB | | | | [address];[place], [place] | | | | | | [address] | | | | + + + [...] | | | performed at [facility];[address] | | LAB | | | | [address];[place], [place] | | | | | | [address] | | | | + + + [...] | | | performed at [facility];[address] | | LAB | | | | [address];[place], [place] | | | | | | [address] | | | | + + + [...] | | | performed at [facility];888 | mmol/L | LAB | | | | [address];[place] | | | | | | [address] | | | | + + + + + + | K | 3.7Comment: Testing | 3.5 - 4.9 | EXTERNAL | | | | performed at [facility];[address] | mmol/L | LAB | | | | [address];[place] | | | | | | [address] | | | | + + + + + + | Cl | 103Comment: Testing | 99 - 109 mmol/L | EXTERNAL | | | | performed at [facility];[address] | | LAB | | | | [address];[place] | | | | | | [address] | | | | + + + + + + | CO2 | 23Comment: Testing | 23 - 32 mmol/L | EXTERNAL | | | | performed at [facility];[address] | | LAB | | | | [address];[place] | | | | | | [address] | | | | + + + + + + | Anion Gap | 15Comment: Testing | 5 - 20 mmol/L | EXTERNAL | | | | performed at [facility];[address] | | LAB | | | | [address];[place] | | | | | | [address] | | | | + + + + + + | Glucose, | 150 (H)Comment: Testing | 65 - 99 mg/dL | EXTERNAL | | | Fasting | performed at [facility];[address] | | LAB | | | | [address];[place] | | | | | | [address] | | | | + + + + + + | BUN | 9Comment: Testing | 8 - 25 mg/dL | EXTERNAL | | | | performed at [facility];[address] | | LAB | | | | [address];[place] | | | | | | [address] | | | | + + + + + + | Creatinine | 0.76Comment: Testing | 0.50 - 1.00 | EXTERNAL | | | | performed at [facility];[address] | mg/dL | LAB | | | | [address];[place] | | | | | | [address] | | | | + + + + + + | BUN/Creatin | 12Comment: Testing | | EXTERNAL | | | ine Ratio | performed at [facility];[address] | | LAB | | | | [address];[place] | | | | | | [address] | | | | + + + + + + | Calcium | 8.6Comment: Testing | 8.5 - 10.5 | EXTERNAL | | | | performed at [facility];888 | mg/dL | LAB | | | | [address];[place] | | | | | | [address] | | | | + + + + + + | Protein, | 7.3Comment: Testing | 6.3 - 8.2 g/dL | EXTERNAL | | | Total | performed at [facility];[address] | | LAB | | | | [address];[place] | | | | | | [address] | | | | + + + + + + | Albumin | 2.6 (L)Comment: Testing | 3.6 - 5.0 g/dL | EXTERNAL | | | | performed at [facility];[address] | | LAB | | | | [address];[place] | | | | | | [address] | | | | + + + + + + | Globulin | 4.7Comment: Testing | 1.3 - 4.9 g/dL | EXTERNAL | | | | performed at [facility];[address] | | LAB | | | | [address];[place] | | | | | | [address] | | | | + + + + + + | A/G Ratio | 0.6 (L)Comment: Testing | 1.0 - 2.4 | EXTERNAL | | | | performed at [facility];[address] | | LAB | | | | [address];[place] | | | | | | [address] | | | | + + + + + + | Bilirubin | 0.9Comment: Testing | 0.1 - 1.5 mg/dL | EXTERNAL | | | Total | performed at [facility];[address] | | LAB | | | | [address];[place] | | | | | | [address] | | | | + + + + + + | ALP, | 246 (H)Comment: Testing | 35 - 115 U/L | EXTERNAL | | | External | performed at [facility];[address] | | LAB | | | | [address];[place] | | | | | | [address] | | | | + + + + + + | AST | 26Comment: Testing | 10 - 45 U/L | EXTERNAL | | | | performed at [facility];[address] | | LAB | | | | [address];[place] | | | | | | [address] | | | | + + + + + + | ALT | 23Comment: Testing | 10 - 65 U/L | EXTERNAL | | | | performed at [facility];[address] | | LAB | | | | [address];[place] | | | | | | [address] | | | | + + + [...] | | | | | | at [facility];[address] [facility] | | | | | | [address];[place] [address] | | | | + + + [...] Testing performed | | | at [facility], [address] [place] [address] | | + + + + +---------+ [...] | | | | | [place] [address] | | | | + + + + + + | Clarity | CLEARComment: Testing | | EXTERNAL | | | | performed at [facility], [address] | | LAB | | | | [place], | | | | | | [place] [address] | | | | + + + + + + | Specific | 1.007Comment: Testing | 1.002 - 1.030 | EXTERNAL | | | Neche | performed at [facility], [address] | | LAB | | | | [place], | | | | | | [place] [address] | | | | + + + + + + | Leukocyte | SMALL (A)Comment: | | EXTERNAL | | | Esterase, | Testing performed at | | LAB | | | Urine | [facility], [address] [facility] | | | | | | [place] | | | | | | [address] | | | | + + + + + + | Nitrite, | NEGATIVEComment: Testing | | EXTERNAL | | | Urine | performed at [facility], [address] | | LAB | | | | [address] [place], | | | | | | [place] [address] | | | | + + + + + + | Urobilinoge | 0.2Comment: Testing | mg/dL | EXTERNAL | | | n, Urine | performed at [facility], [address] | | LAB | | | | [address], | | | | | | [place] [address] | | | | + + + + + + | Protein, | NEGATIVEComment: Testing | mg/dL | EXTERNAL | | | Urine | performed at [facility], [address] | | LAB | | | | [address], | | | | | | [place] [address] | | | | + + + + + + | pH, Urine | 6.5Comment: Testing | 5.0 - 8.0 | EXTERNAL | | | | performed at [facility], [address] | | LAB | | | | [place], | | | | | | [place] [address] | | | | + + + + + + | Blood, | SMALL (A)Comment: | | EXTERNAL | | | Urine | Testing performed at | | LAB | | | | [facility], [address] | | | | | | [place] | | | | | | [address] | | | | + + + + + + | Ketones | TRACE (A)Comment: | mg/dL | EXTERNAL | | | | Testing performed at | | LAB | | | | [facility], [address] | | | | | | [place] | | | | | | [address] | | | | + + + + + + | Bilirubin, | NEGATIVEComment: Testing | | EXTERNAL | | | Urine | performed at [facility], [address] | | LAB | | | | [address], | | | | | | [place] [address] | | | | + + + + + + | Glucose, | NEGATIVEComment: Testing | mg/dL | EXTERNAL | | | Urine | performed at [facility], [address] | | LAB | | | | [address], | | | | | | [place] [address] | | | | + + + [...] EXTERNAL | | | | performed at [facility], [address] | | LAB | | | | [place], | | | | | | [place] [address] | | | | + + + + + + | RBC, UA | 1-5Comment: Testing | 0 - 5 /hpf | EXTERNAL | | | | performed at [facility], [address] | | LAB | | | | [place], | | | | | | [place] [address] | | | | + + + + + + | Epithelial | 16-25Comment: Testing | /lpf | EXTERNAL | | | Cells | performed at [facility], [address] | | LAB | | | | [address], | | | | | | [place] [address] | | | | + + + + + + | Bacteria, | NONE SEENComment: | | EXTERNAL | | | UA | CULTURE TO FOLLOWTesting | | LAB | | | | performed at [facility], [address] | | | | | | [address] [place], | | | | | | [place] [address] | | | | + + + + + + | HYALINE | NONE SEENComment: | | EXTERNAL | | | CASTS UA | Testing performed at | | LAB | | | | [facility], [address] | | | | | | [place] | | | | | | [address] | | | | + + + [...] | | | | | | ACUTE DE Testing | | | | | | performed at [facility];[address] | | | | | | [facility];[place], [place] | | | | | | [address] | | | | + + + [...] LAB | | Testing performed at [facility];[address] [place] [address];[place] [address] MRSA PCR | | | NEGATIVE Testing performed at | | | [address];[place] [address] | | + + + + +---------+ + + | Performing | Address | City/State/Zipcode | Phone Number | | Organization | | | | + +---------+ + + | EXTERNAL LAB | | | | + +---------+ + + Ki INR (07/19/2014 8:19 PM PDT) + + + [...] | | | performed at [facility];[address] | | | | | | [facility];[place], [place] | | | | | | [address] | | | | + + + [...] + +---------+ + + External Lab: CBC (07/19/2014 8:19 PM PDT) + + + + + + | Component | Value | Ref Range | Performed | Pathologist | | | | | At | Signature | + + + + + + | WBC | 19.56 (H)Comment: | 3.80 - 11.00 | EXTERNAL | | | | Testing performed at | K/uL | LAB | | | | [facility];[address] | | | | | | [address];[place] [address] | | | | + + + + + + | RED CELL | 4.56Comment: Testing | 3.70 - 5.10 | EXTERNAL | | | COUNT | performed at [facility];[address] | M/uL | LAB | | | | [address];[place] | | | | | | [address] | | | | + + + + + + | Hgb | 14.5Comment: Testing | 11.3 - 15.5 | EXTERNAL | | | | performed at [facility];[address] | g/dL | LAB | | | | [address];[place] | | | | | | [address] | | | | + + + + + + | Hematocrit, | 43.4Comment: Testing | 34.0 - 46.0 % | EXTERNAL | | | POC | performed at [facility];[address] | | LAB | | | | [address];[place] | | | | | | [address] | | | | + + + + + + | MCV | 95.2Comment: Testing | 80.0 - 100.0 fl | EXTERNAL | | | | performed at [facility];[address] | | LAB | | | | [address];[place] | | | | | | [address] | | | | + + + + + + | MCH | 31.8Comment: Testing | 27.0 - 34.0 pg | EXTERNAL | | | | performed at [facility];[address] | | LAB | | | | [address];[place] | | | | | | [address] | | | | + + + + + + | MCHC | 33.4Comment: Testing | 32.0 - 35.5 | EXTERNAL | | | | performed at [facility];888 | g/dL | LAB | | | | [address];[place] | | | | | | [address] | | | | + + + + + + | RDW-CV | 53.4 (H)Comment: Testing | 37 - 53 fl | EXTERNAL | | | | performed at [facility];[address] | | LAB | | | | [address];[place] | | | | | | [address] | | | | + + + + + + | Platelet | 335Comment: Testing | 150 - 400 K/uL | EXTERNAL | | | Count | performed at [facility];[address] | | LAB | | | Plasma | [address];[place] | | | | | | [address] | | | | + + + + + + | MPV | 7.8Comment: Testing | fl | EXTERNAL | | | | performed at [facility];[address] | | LAB | | | | [address];[place] | | | | | | [address] | | | | + + + + + + | Differentia | AUTOMATEDComment: | | EXTERNAL | | | l Type | Testing performed at | | LAB | | | | [facility];[address];[place] [address] | | | | + + + + + + | % Segmented | 68.15Comment: Testing | % | EXTERNAL | | | | performed at [facility];[address] | | LAB | | | Neutrophils | [address];[place] | | | | | | [address] | | | | + + + + + + | % | 21.73Comment: Testing | % | EXTERNAL | | | Lymphocytes | performed at [facility];[address] | | LAB | | | | [address];[place] | | | | | | [address] | | | | + + + + + + | % Monocytes | 9.37Comment: Testing | % | EXTERNAL | | | | performed at [facility];[address] | | LAB | | | | [address];[place] | | | | | | [address] | | | | + + + + + + | % | 0.18Comment: Testing | % | EXTERNAL | | | Eosinophils | performed at [facility];[address] | | LAB | | | | [address];[place] | | | | | | [address] | | | | + + + + + + | % Basophils | 0.57Comment: Testing | % | EXTERNAL | | | | performed at [facility];[address] | | LAB | | | | [address];[place] | | | | | | [address] | | | | + + + + + + | Absolute | 13.33 (H)Comment: | 1.90 - 7.40 | EXTERNAL | | | Segmented | Testing performed at | K/uL | LAB | | | Neutrophils | [facility];[place] [address] | | | | + + + + + + | Absolute | 4.25 (H)Comment: Testing | 1.00 - 3.90 | EXTERNAL | | | Lymphocytes | performed at [facility] [place] | K/uL | LAB | | | | [address];[place] | | | | | | [address] | | | | + + + + + + | Absolute | 1.83 (H)Comment: Testing | 0.00 - 0.80 | EXTERNAL | | | Monocytes | performed at [facility] | K/uL | LAB | | | | [address];[place] | | | | | | [address] | | | | + + + + + + | Absolute | 0.04Comment: Testing | 0.00 - 0.50 | EXTERNAL | | | Eosinophils | performed at [facility] | K/uL | LAB | | | | [address];[place] | | | | | | [address] | | | | + + + + + + | Absolute | 0.11 (H)Comment: Testing | 0.00 - 0.10 | EXTERNAL | | | Basophils | performed at [facility] | K/uL | LAB | | | | [address];[place] | | | | | | [address] | | | | + + + [...] | | | performed at [facility] | | LAB | | | | [address];[place], [place] | | | | | | [address] | | | | + + + [...] | | | performed at [facility] | | LAB | | | | [address];[place] | | | | | | [address] | | | | + + + [...] | | | performed at [facility] | mmol/L | LAB | | | | [address];[place] | | | | | | [address] | | | | + + + + + + | K | 3.1 (L)Comment: Testing | 3.5 - 4.9 | EXTERNAL | | | | performed at [facility] | mmol/L | LAB | | | | [address];[place] | | | | | | [address] | | | | + + + + + + | Cl | 101Comment: Testing | 99 - 109 mmol/L | EXTERNAL | | | | performed at [facility] | | LAB | | | | [address];[place] | | | | | | [address] | | | | + + + + + + | CO2 | 26Comment: Testing | 23 - 32 mmol/L | EXTERNAL | | | | performed at [facility] | | LAB | | | | [address];[place] | | | | | | [address] | | | | + + + + + + | Anion Gap | 12Comment: Testing | 5 - 20 mmol/L | EXTERNAL | | | | performed at [facility] | | LAB | | | | [address];[place] | | | | | | [address] | | | | + + + + + + | Glucose, | 109 (H)Comment: Testing | 65 - 99 mg/dL | EXTERNAL | | | Fasting | performed at [facility] | | LAB | | | | [address];[place] | | | | | | [address] | | | | + + + + + + | BUN | 9Comment: Testing | 8 - 25 mg/dL | EXTERNAL | | | | performed at [facility] | | LAB | | | | [address];[place] | | | | | | [address] | | | | + + + + + + | Creatinine | 0.69Comment: Testing | 0.50 - 1.00 | EXTERNAL | | | | performed at [facility] | mg/dL | LAB | | | | [address];[place] | | | | | | [address] | | | | + + + + + + | BUN/Creatin | 12Comment: Testing | | EXTERNAL | | | ine Ratio | performed at [facility] | | LAB | | | | [address];[place] | | | | | | [address] | | | | + + + + + + | Calcium | 8.5Comment: Testing | 8.5 - 10.5 | EXTERNAL | | | | performed at [facility] | mg/dL | LAB | | | | [facility] | | | | | | [address] | | | | + + + [...] | | | | | | at [facility] | | | | | | [address];[place] [address] | | | | + + + [...]
--- OUTSIDE RECORDS SUMMARY | ~2019-03-09 | XMS | Encounter Summary ---
Demographics + + + | Address | [address] | | | [place] [address] | + + + | Home Phone | | + + + | Preferred Language | Unknown | + + + | Marital Status | | + + + | Rastafarian Affiliation | Unknown | + + + [...] Team Providers + +------+ + | Care Inspector Advanced Composite Name | Role | Phone | + +------+ + PCP | Unavailable | + +------+ + Encounter Details +--------+ + + + + | Date | Type | Department | Care Team | Description | +--------+ + + + + | 10/16/ | Hospital | [facility] | Enrique Bocanegra, | Rectovaginal fistula | | 2016 | Encounter | [facility] | [address] | | | | | [address] | [address] | | | | | [place], [place] | [place] [address] | | | | | [address] | [phone] | | | | | [phone] | | | +--------+ + + + [...] 2223 Date of Service: 10/17/152009 Status: Signed Residue Furnace Operator: Osvaldo Dial RN (Registered Nurse) Patient and spouse in room. Went over D/C instructions that included post anesthesia care, wound care, pain medication, DVT education. States understanding. Medi-port de accessed per sterile protocol. Prior to removal 500 units of heparin injected into line. Sterile dressing and Tegaderm applied. D/C folder sent home with patient belongings. D/C via w/c home. Stevo espino in this encounter Plan of Treatment +--------+---------+ + + + | Date | Type | Specialty | Care Team | Description | +--------+---------+ + + + | 03/27/ | Office | General Surgery | Sever[place], | | | 2018 | Visit | | [address] | | | | | | [address] [facility] [address] | | | | | | [place] [address] | | | | | | [phone] | | | | | | | [...] interpretation and technical preparation was performed by [facility] | | | [facility], [address], | | | [place] [address] ([place]: Raphael Yee M.D.; IA#: | | | [id number]). Diagnostician: Honey Mcduffie MD Pathologist | | [...]
--- OUTSIDE RECORDS SUMMARY | ~2019-03-09 | XMS | Encounter Summary ---
Demographics + + + | Address | [address] | | | [place] [address] | + + + | Home Phone | | + + + | Preferred Language | Unknown | + + + | Marital Status | | + + + | Caodaism Affiliation | Unknown | + + + | Race | Unknown | + + + | Ethnic Group | Unknown | + + + Author + + + | Author | [facility] | | | and [place] | + + + | Organization | [facility] | | | and [...] Providers + +------+ + | Care Family Services Worker Name | Role | Phone | [...] Unknown | | | | | [place], [place] | [phone] | | | | | [address] | | | | | | [phone] | | | +--------+ + + + [...]
--- OUTSIDE RECORDS SUMMARY | ~2019-03-09 | XMS | Encounter Summary ---
Demographics + + + | Address | [address] | | | [place] [address] | + + + | Home Phone | | + + + | Preferred Language | Unknown | + + + | Marital Status | | + + + | Lutheran Affiliation | NRP | + + + [...] [place], [place] | | | | | [address] | | + + + + + | Cami Sawyer | ECON | Unknown | | + + + + + Care Team Providers + +------+ + | Care Senior International Tax Manager Name | Role | Phone | [...] [address] | | | | | [place], [place] | [address] | | | 05/13/ | | | [place], [place] | | | 2014 | | [phone] | [address] | | | | | | [phone] | | | | | | | | | | | | Jf Wiseman MD | | | | | | [address] | | | | | | [address] | | | | | | [place], [place] | | | | | | [address] | | | | | | [phone] | | | | | | | [...] might be different f rom the original. [facility] DEPARTMENT OF SURGERY EMERGENCY GENERAL SURGERY Division [...] continued to progress and is discharged to nursing home facility for [facility] care. Mackenzie Hartley is discharged in stable [...] 100mls three times a day. Destination: Destination: [facility] Thank you for the opportunity to [...] might be different f rom the original. 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 S he [...] thrombosis while anticoagulated with warfarin transferred to [facility] from [facility] for management of retroperitoneal bleed. She is [...] know if she wants to see the [facility] GI team - Stage I pressure [...] recommending [facility] since would be close to [facility] and she would benefit for aggres [...] with complication 03/12/2012 Jean-Claude Albrecht D.M.D., M.D. [facility] [address] [place] [address] This assessment and plan was formulated both [...] MD - 05/11/2014 8:51 AM PST . 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 S he [...] thrombosis while anticoagulated with warfarin transferred to [facility] from [facility] for management of retroperitoneal bleed. She is [...] know if she wants to see the [facility] GI team - Stage I pressure [...] recommending [facility] since would be close to [facility] and she would benefit for aggres [...] with complication 03/12/2012 Jean-Claude Albrecht D.M.D., M.D. [facility] [address] [place] [address] This assessment and plan was formulated both [...] being active. Pt's has been at the [facility] supporting her. Pt is not anabaptism but appreciates support. Intervention: Provided a listening presence and explored pt's anxieties, worries and hopes. Plan: Spiritual care remains available. 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 S he [...] thrombosis while anticoagulated with warfarin transferred to [facility] from [facility] for management of retroperitoneal bleed. She is [...] know if she wants to see the [facility] GI team - Stage I pressure [...] recommending [facility] since would be close to [facility] and she would benefit for aggres [...] intestine with complication 03/12/2012 ANDREW VINCENT MD [facility] [address] [place] [address] This assessment and plan was [...] note might be different from the orig [facility]. 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 S he [...] thrombosis while anticoagulated with warfarin transferred to [facility] from [facility] for management of retroperitoneal bleed. She is [...] know if she wants to see the [facility] GI team - Stage I pressure [...] recommending [facility] since would be close to [facility] and she would benefit for aggres [...] intestine with complication 03/12/2012 ANDREW VINCENT MD [facility] [address] [place] [address] This assessment and plan was [...] might be different from the orig inal. 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 S he [...] TROPONIN Imaging No new Cultures BLOOD CULTURE [facility] (no units) Date Value Range Status [...] thrombosis while anticoagulated with warfarin transferred to [facility] from [facility] for management of retroperitoneal bleed. She is [...] know if she wants to see the [facility] GI team - Stage I pressure [...] recommending SONIAA since would be close to [facility] and she would benefit for aggres [...] intestine with complication 03/12/2012 ANDREW VINCENT MD [facility] [address] [place] [address] This assessment and plan was formulated [...] this note might be different from the [facility] Department of Surgery Progress Note Author: Andrew Vincent MD General Surgery Resident Attending Physician: Jf Wiseman MD GENERAL SURGERY Progress Note: Hospital Day #: 14 ATTENDING: Jf Wiseman MD Identification: Mackenzie Hartley is a 58 year old female with COPD, Crohn's disease, chronic pa in, and 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 S he [...] TROPONIN Imaging No new Cultures BLOOD CULTURE [facility] (no units) Date Value Range Status [...] thrombosis while anticoagulated with warfarin transferred to [facility] from [facility] for management of retroperitoneal bleed. She is [...] intestine with complication 03/12/2012 ANDREW VINCENT MD [facility] [address] [place] [address] This assessment and plan was formulated both [...] note might be different from the orig [facility]. 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 S he [...] TROPONIN Imaging No new Cultures BLOOD CULTURE [facility] (no units) Date Value Range Status [...] thrombosis while anticoagulated with warfarin transferred to [facility] from [facility] for management of retroperitoneal bleed. She is [...] continued DHT,TF - Diet: NPO - per VERIFYING MACHINE OPERATOR, high risk of aspiration - continue ice [...] intestine with complication 03/12/2012 ANDREW VINCENT MD [facility] [address] [place] [address] This assessment and plan was formulated both [...] might be different from the orig inal. 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 S he [...] TROPONIN Imaging No new Cultures BLOOD CULTURE [facility] (no units) Date Value Range Status [...] thrombosis while anticoagulated with warfarin transferred to [facility] from [facility] for management of retroperitoneal bleed. She is [...] intestine with complication 03/12/2012 ANDREW VINCENT MD [facility] [address]A [address] [place] [place] [address] This assessment and plan was [...] the resident s note. PHIL VARMA MD [facility] [address] [place] [address] Rosa Sauer MD - 05/04/2014 8:26 AM [...] at referring hospital. She was transferred to [facility] f or active hemorrhage and underwent [...] rounds. Rosa Reynoso, R2 SICU/Trauma Personal pager: [phone] Team pager: [phone] Angeles Acevedo MD - 05/04/2014 7:08 AM PST [facility] DEPARTMENT OF SURGERY EGS ICU Progress Note Division of Trauma and Critical Care ID: Mackenzie Hartley is a 58 year old female with COPD, Crohn's disease, chronic pain, and 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 while anticoagulated with warfarin transferre d to [facility] from [facility] for management of retroperitoneal bleed. She is [...] 3 mL, 3 mL, inhalation, Q4H, Jf baltazra MD, 3 mL at 05/04/14 0419 menthol-zinc [...] thrombosis while anticoagulated with warfarin transferred to [facility] from [facility] for management of retroperitoneal bleed. She has required repeated transfers to ICU for respiratory status. She has been diuresed ap propriately while in the ICU and O2 needs have decreased significantly. Will transfer to [facility] or, but need to keep a close [...] Hannah MD General Surgery Resident, R3 Pager [phone] [facility] [place] [address] [address] [facility] [address] Jf Jones MD - 05/03/2014 9:38 AM [...] - TF at goal, + BM Dysphagia: VERIFYING MACHINE OPERATOR following- remains NPO Anasarca: compression socks,. Goal [...] Call team 01/11 for questions: Team Pager [phone] ATTENDING ADDENDUM: I saw and examined Mackenzie [...] Erin Christensen PA-C. Jf Wiseman MD FACS ring striker Division of Trauma, Critical Care, and Acute Care Surgery [phone] Elda Emmanuel MD - 05/03/2014 3:49 AM PST EMERGENCY GENERAL SURGERY ICU PROGRESS NOTE: Attending Physician: Jf Wiseman MD 05/03/2014 ID: Mackenzie Hartley is a 58 year old female with COPD, Crohn's disease, chronic pain, and coagulopa thy resulting in splenic artery thrombosis while anticoagulated with warfarin transferred to [facility] from [facility] for management of retroperitoneal bleed. She is [...] thrombosis while anticoagulated with warfarin transferred to [facility] from [facility] for management of retroperitoneal bleed. 1. Neuro: [...] this patient encounter. Elda Glez MD Pager [phone] Plastic Surgery R2 [facility] Diagnoses: 555.2 Crohn's disease of both [...] holding Q6W Remicade- [place] [facility] [place] regarding of timing of resuming remicade Severe malnutrition: - TF at goal, + BM, Dysphagia: VERIFYING MACHINE OPERATOR following- remains NPO Anasarca: compression socks,. Goal [...] Call team 01/11 for questions: Team Pager [phone] ATTENDING ADDENDUM: I saw and examined Mackenzie [...] Marge Harris PA-C. Jf Wiseman MD FACS ring striker Division of Trauma, Critical Care, and Acute Care Surgery [phone] GIAHarAngeles oglesby MD - 05/02/2014 6:55 AM PST [facility] DEPARTMENT OF SURGERY EGS ICU Progress Note Division of Trauma and Critical Care ID: Mackenzie Hartley is a 58 year old female with COPD, Crohn's disease, chronic pain, and 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 while anticoagulated with warfarin transferre d to [facility] from [facility] for management of retroperitoneal bleed. She is [...] thrombosis while anticoagulated with warfarin transferred to [facility] from [facility] for management of retroperitoneal bleed. Neuro: Minimize [...] Hannah MD General Surgery Resident, R3 Pager [phone] [place] [phone] arris, Angeles Hanna MD - 05/02/2014 2:14 [...] Hannah MD General Surgery Resident, R3 Pager [phone] ean-Claude Albrecht DMD, MD - 05/01/2014 10:36 AM PST [facility] DEPARTMENT OF SURGERY EGS Progress Note ID: Mackenzie Hartley is a 58 year old female with COPD, Crohn's disease, chronic pain, and 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 while anticoagulated with warfarin transferre d to [facility] from [facility] for management of retroperitoneal bleed. She is [...] thrombosis while anticoagulated with warfarin transferred to [facility] from [facility] for management of retroperitoneal bleed. Overall, she is improving. However, remains tachycardic with leukocytosis - WBC [address] 05/01 showed - moderate ascites and pleural effusions and hematoma. Neuro: dilaudid IV PRN Speech: following continue daily to eval swallow CV: HD stable L COFFEE SUPERVISOR PSA resolved Continue IV lasix today 20 [...] acute care hospitalization Jean-Claude Albrecht D.M.D., M.D. [facility] [place] [facility] [place] [address] Jf Jones MD - 04/30/2014 11:08 AM [...] at referring hospital. She was transferred to [facility] fo r active hemorrhage and underwent [...] malnutrition: - pulled DHT- refusing replacement. Await VERIFYING MACHINE OPERATOR eval if passes swallow will give chance to prove adequate po intake. Expect will require TFs again Dysphagia: await VERIFYING MACHINE OPERATOR eval today. Cont meds and feed via [...] Call team 01/11 for questions: Team Pager [phone] ATTENDING ADDENDUM: I saw and examined Mackenzie [...] Marge Harris PA-C. Jf Wiseman MD FACS ring striker Division of Trauma, Critical Care, and Acute Care Surgery [phone] Angeles Acevedo MD - 04/30/2014 1:18 AM PST [facility] DEPARTMENT OF SURGERY EGS ICU Progress Note Division of Trauma and Critical Care ID: Mackenzie Hartley is a 58 year old female with COPD, Crohn's disease, chronic pain, and 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 while anticoagulated with warfarin transferre d to [facility] from [facility] for management of retroperitoneal bleed. She is [...] thrombosis while anticoagulated with warfarin transferred to [facility] from [facility] for management of retroperitoneal bleed. Overall, she is improving. However, remains tachycardic with leukocytosis -- difficult to t ease out if this is secondary to asplenia. Will obtain CT abd pelvis today to clarify. Neuro: dilaudid IV PRN and intermittent versed for sedation CV: HD stable L COFFEE SUPERVISOR PSA resolved Pulm: titrate to O2 >92% [...] Hannah MD General Surgery Resident, R3 Pager [phone] [facility] [place] [address] [address] [facility] [address] Aravind Morales MD - 04/29/2014 11:43 AM PSTICU Attending: I saw and examined Mackenzie Hartley ([id number]) with Erin Christensen PA-C on 04/29/14 and [...] of time documented by Kaci Massey MD [employer] Trauma, Critical Care & Acute Care Surgery [...] at referring hospital. She was transferred to [facility] fo r active hemorrhage. Hospital Day [...] resolving cont current H2O via DHT Dysphagia: VERIFYING MACHINE OPERATOR consulted, ice chips only. Cont meds and [...] Call team 01/11 for questions: Team Pager [phone] Chelly Blum MD,M PH - 04/28/2014 3:03 [...] at referring hospital. She was transferred to [facility] fo r active hemorrhage. Hospital Day [...] Hyernatremia: resolving, reduce H2O to 30ml/hr Dysphagia: VERIFYING MACHINE OPERATOR consulted, ice chips only. Cont meds and [...] Call team 01/11 for questions: Team Pager [phone] Angeles Acevedo MD - 04/28/2014 5:18 AM PST [facility] DEPARTMENT OF SURGERY EGS ICU Progress Note Division of Trauma and Critical Care ID: Mackenzie Hartley is a 58 year old female with COPD, Crohn's disease, chronic pain, and 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 while anticoagulated with warfarin transferre d to [facility] from [facility] for management of retroperitoneal bleed. She is s/p ex lap, splenectomy, and packing with lap pads at OSH and from reopening of laparotomy, evacua tion of 2-3 L of intraabdominal hematoma, closure of open abdomen SUBJECTIVE: Extubated, neurologically doing much better. 3 L NC Underwent successful thrombin injection of L COFFEE SUPERVISOR pseudoaneurysm by IR 04/26 MEDICATIONS: Current facility-administered [...] thrombosis while anticoagulated with warfarin transferred to [facility] from [facility] for management of retroperitoneal bleed. Neuro: dilaudid IV PRN and intermittent versed for sedation CV: HD stable Per vascular: arterial duplex of L COFFEE SUPERVISOR to assess for stability of PSA shows [...] Hannah MD General Surgery Resident, R3 Pager [phone] [facility] [place] [address] [place] [facility] [place] [address] Xin Irizarry M D - 04/27/2014 11:55 [...] diagnosti c imaging and laboratory study results [facility] DEPARTMENT: [id number] - [facility] Place of Service: - Inpatient Date of Service: 04-27-2014 Modifiers: GC - Resident Involved Suggested CPT: 02214 - Initial, Comp; Mod complex 50 min XIN AGEE MD [facility] [address] [place] [address] wpriya Rudy Markham Adriel - 04/27/2014 11:55 AM PST Hematology Consult Progress Note Primary Service: EGS Primary Attending: Jf Wiseman MD Hospital Length of Stay: 4 Interval Events: - extubated - thrombin injection to COFFEE SUPERVISOR pseudoaneurysm - heparin gtt started last night Subjective: Patient is unable to provide history as she remains encephalopathic. Did speak with her , who confirmed history obtained in initial heme consult note. States she givens s been on warfarin since her 2011 [facility] admission with no known thrombotic events [...] assessme nt and plan. Rudy Sarmiento, DO [facility] Internal Medicine PGY3 Pager [phone] Mirela Josue MD - 04/27/2014 10:49 AM PST [facility] Department of Surgery Progress Note Author: [...] underwent successful thrombin injection of the left COFFEE SUPERVISOR pseudoaneurysm by IR last night. Heparin restarted [...] ultraso und guided thrombin injection of left COFFEE SUPERVISOR pseudoanuerysm. Will order arterial duplex of left COFFEE SUPERVISOR to assess for stability of pseudoaneurysm Monitor [...] - hemorrhage vs HCAP LUCY MARKS MD [address] [place] [address] This assessment and plan was formulated both independently and in conjunction with the [facility] ular Surgery Team as well as the attending provider of record above regarding management of this patient and their medical issues. It is accurate to the best of my knowledge, and is s ubject to modification based on clinical developments, new data, or final imaging results. [facility] staff I saw and evaluated the patient. I agree with the findings and the plan of care as petern laxmi in the resident s note. Left femoral pseudoaneurysm appears resolved. Stable from [facility] standpoint. No further imaging required unless clinical status changes. Mirela Thompson M.D. [facility] Vascular Surgery [address] [facility] [place] [address] Email: [email or web address] Jones MD - 04/27/2014 8:03 AM PST [...] at referring hospital. She was transferred to [facility] fo r active hemorrhage. Hospital Day [...] H2O Hyernatremia: water 100ml/hr via DHT Dysphagia: VERIFYING MACHINE OPERATOR consulted, ice chips only JULIANE: ATN from [...] Call team 01/11 for questions: Team Pager [phone] ATTENDING ADDENDUM: I saw and examined Mackenzie [...] Erin Christensen PA-C. Jf Wiseman MD FACS ring striker Division of Trauma, Critical Care, and Acute Care Surgery [id number] aElda tejada MD - 04/27/2014 4:52 AM PST EMERGENCY GENERAL SURGERY ICU PROGRESS NOTE: Attending Physician: Jf Wiseman MD 04/27/2014 ID: Mackenzie Hartley is a 58 year old female with COPD, Crohn's disease, chronic pain, and coagulopa thy resulting in splenic artery thrombosis while anticoagulated with warfarin transferred to [facility] from [facility] for management of retroperitoneal bleed. She is [...] HR EVENTS: - Incidentally found to have COFFEE SUPERVISOR pseudoaneurysm, injected with thrombin by IR - [...] thrombosis while anticoagulated with warfarin transferred to [facility] from [facility] for management of retroperitoneal bleed. Neuro: oxy [...] this patient encounter. Elda Glez MD Pager [phone] Plastic Surgery R2 [facility] Diagnoses: 555.2 Crohn's disease of both [...] Attending:Dr. Lenny Calhoun MD (Fellow)/pager: Dr. Vang [phone] Medications Procedure Meds: Dilaudid IV 0.5mg Midazolam [...] at referring hospital. She was transferred to [facility] fo r active hemorrhage. Hospital Day [...] Call team 01/11 for questions: Team Pager [phone] Angeles Acevedo MD - 04/26/2014 5:24 AM PST [facility] DEPARTMENT OF SURGERY EGS ICU Progress Note Division of Trauma and Critical Care ID: Mackenzie Hartley is a 58 year old female with COPD, Crohn's disease, chronic pain, and 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 while anticoagulated with warfarin transferre d to [facility] from [facility] for management of retroperitoneal bleed. She is [...] thrombosis while anticoagulated with warfarin transferred to [facility] from [facility] for management of retroperitoneal bleed. Neuro: dilaudid [...] Hannah MD General Surgery Resident, R3 Pager [phone] [facility] [place] [phone] [address] [facility] [address] ithya Bailey MD - 04/25/2014 6:40 AM PSTTSICU Attending 04/25/14 58 yo woman critically ill with complex surgical and medical history, transferred to [facility] intraabdominal and retroperitoneal hemorrhage 2 days ago. [...] Call team 01/11 for questions: Team Pager [phone] Angeles Acevedo MD - 04/25/2014 4:39 AM PST [facility] DEPARTMENT OF SURGERY EGS ICU Progress Note Division of Trauma and Critical Care ID: Mackenzie Hartley is a 58 year old female with COPD, Crohn's disease, chronic pain, and 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 while anticoagulated with warfarin transferre d to [facility] from [facility] for management of retroperitoneal bleed. She is [...] 85.9 04/24/2014 RDW 49.1 04/24/2014 ASSESSMENT/PLAN: Mackenzie Hartlye is a 58 year old female with COPD, Crohn's disease, chronic pain, and coagulopa thy resulting in splenic artery thrombosis while anticoagulated with warfarin transferred to [facility] from [facility] for management of retroperitoneal bleed. Neuro: dilaudid [...] Hannah MD General Surgery Resident, R3 Pager [phone] [facility] [place] [address] Rich Pappas MD - 04/24/2014 9:21 AM [...] extubate Initial surgical contact: Miladis at pager [phone] Nithya Andres MD - 04/24/2014 5:25 AM [...] exploration at referring hospital. IR embolization at [facility]. 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 She is [...] thrombosis while anticoagulated with warfarin transferred to [facility] from [facility] for management of retroperitoneal bleed. 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 | [address] | [address] | | | TESTS | | | [...] [facility] | [address] | [place] [address] | | | SERVICES, CORE | PARK [...] [facility] | [address] | [place] [address] | | | SERVICES, CORE | PARK [...] | | | LABORATORY | | | ESTONIAN | | | SERVICES, | | | [...] | + + + + + | [facility] | [address] [facility] | [place] [address] | | | ARON, JANELL | BERTRAM [...] [facility] | [address] | [place], [place] | | | H[place], POINT OF CARE | [address] | [address] | | | TESTS | | | [...] [facility] | [address] | [place], [place] | | | [facility]ORE [facility] CARE | [address] | [address] | | | TESTS | | | [...] | + + + + + | [facility] | [address] | [place] [address] | | | SERVICES, CORE [...] (L) | 1.8 - 2.5 mg/dL | [facility] | | | JFMA | | | [...] | + + + + + | [facility] | [address] [facility] | [place] [address] | | | SERVICES, CORE | BERTRAM [...] | | | LABORATORY | | | ESTONIAN | | | SERVICES, | | | [...] the MDRD equation recommended by the | [facility] | | National Kidney Disease Education [...] | + + + + + | [facility] | [address] | [place] [address] | | | JANELL SHARP | BERTRAM [...] | + + + + + | [facility] | [address] | [place] [address] | | | JANELL SHARP | BERTRAM [...] - MARILY[facility] | [address] | [place], [place] | | | [facility] CARE | [address] | [address] | | | TESTS | | | [...] (H) | 60 - 99 mg/dL | [facility] - | | | GLUCOSE, | [...] SANDERS | [address] | [place], [place] | | | OSCAR POINT OF CARE | [address] | [address] | | | TESTS | | | [...] | + + + + + | [facility] | [address] | [place] [address] | | | SERVICES, CORE | PARK [...] | + + + + + | [facility] | [address] | [place] [address] | | | SERVICES, CORE | BERTRAM [...] | | | LABORATORY | | | ESTONIAN | | | SERVICES, | | | [...] | + + + + + | [facility] | [address] | [place] [address] | | | SERVICES, CORE | PARK [...] (H) | 0.90 - 1.20 INR | [facility] | | | | | | [...] | + + + + + | [facility] | [address] | [place] [address] | | | SERVICES, CORE | PARK [...] - [facility] | [address] | [place], [place] | | | [facility] CARE | [address] | [address] | | | TESTS | | | [...] + + + | [facility] | [address] | [place], [place] | | | [facility] | [address] | [address] | | | TESTS | | | [...] | | + +---------+ + + | [facility] DEPARTMENT OF | | | | [...] MARQUAM | [address] | [place], [place] | | | [facility] POINT OF CARE | [address] | [address] | | | TESTS | | | [...] [facility] | [address] | [place], [place] | | | [facility] | [address] | [address] | | | TESTS | | | [...] | + + + + + | [facility] | [address] | [place] [address] | | | SERVICES, CORE | [address] | | | + + + + + MAGNESIUM, PLASMA (05/10/2014 3:39 AM PST) + +---------+ + + + | Component | Value | Ref Range | Performed | Pathologist | | | | | At | Signature | + +---------+ + + + | MAGNESIUM,P | 1.4 (L) | 1.8 - 2.5 mg/dL | [facility] | | | JFMA | | | [...] | + + + + + | [facility] | [address] [facility] | [place] [address] | | | SERVICES, CORE | PARK [...] | | | LABORATORY | | | ESTONIAN | | | SERVICES, | | | [...] the MDRD equation recommended by the | [facility] | | National Kidney Disease Education [...] | + + + + + | [facility] | [address] | [place] [address] | | | ARON, JANELL | BERTRAM [...] | + + + + + | [facility] | [address] | [place] [address] | | | JANELL SHARP | BERTRAM [...] DAVIDAM | [address] | [place], [place] | | | [facility] OF CARE | [facility] | [address] | | | TESTS | | | [...] SANDERS | [address] | [place], [place] | | | O[facility]AR POINT OF CARE | [address] | [address] | | | TESTS | | | [...] MARQU[facility] | [address] | [place], [place] | | | [facility] CARE | [address] | [address] | | | TESTS | | | [...] | + + + + + | [facility] | [address] | [place] [address] | | | SERVICES, CORE | BERTRAM [...] [facility] | [address] | [place] [address] | | | SERVICES, CORE | PARK [...] | | | LABORATORY | | | ESTONIAN | | | SERVICES, | | | [...] | + + + + + | [facility] | [address] | [place] [address] | | | SERVICES, CORE | PARK [...] | + + + + + | [facility] | [address] | [place] [address] | | | SERVICES, CORE | BERTRAM [...] (H) | 60 - 99 mg/dL | [facility] - | | | GLUCOSE, | [...] + + + | [facility] | [address] | [place], [place] | | | [facility]AR POINT OF CARE | [address] | [address] | | | TESTS | | | [...] MARQU[facility] | [address] | [place], [place] | | | [facility] POINT OF CARE | [address] | [address] | | | TESTS | | | [...] | + + + + + | [facility] | [address] | [place] [address] | | | SERVICES, JANELL | BERTRAM [...] [facility] | [address] | [place] [address] | | | SERVICES, CORE | PARK [...] | | | LABORATORY | | | ESTONIAN | | | SERVICES, | | | [...] | + + + + + | [facility] | [address] | [place] [address] | | | SERVICES, CORE | PARK [...] | + + + + + | [facility] | [address] | [place] [address] | | | SERVICES, CORE | BERTRAM [...] SANDERS | [address] | [place], [place] | | | PEPE MOORE OF SHLOMO | [facility] | [address] | | | TESTS | | | [...] - DAVIDAM | [address] | [place], [place] | | | OSCAR POINT OF CARE | [facility] | [address] | | | TESTS | | | [...] [facility] | [address] | [place] [address] | | | JANELL SHARP | PARK [...] [facility] | [address] | [place] [address] | | | SERVICES, CORE | BERTRAM [...] | | | LABORATORY | | | ESTONIAN | | | SERVICES, | | | [...] | + + + + + | [facility] | [address] | [place] [address] | | | SERVICES, CORE | BERTRAM [...] | + + + + + | [facility] | [address] | [place] [address] | | | SERVICES, JANELL | PARK [...] [facility] | [address] | [place], [place] | | | [facility]ARE | [address] | [address] | | | TESTS | | | [...] | + + + + + | [facility] | [address] | [place] [address] | | | SERVICES, CORE | BERTRAM [...] (H) | 60 - 99 mg/dL | [facility] - | | | GLUCOSE, | [...] SANDERS | [address] | [place], [place] | | | [facility]ARE | [address] | [address] | | | TESTS | | | [...] MAR[facility] | [address] | [place], [place] | | | [facility] | [address] | [address] | | | TESTS | | | [...] | + + + + + | [facility] | [address] | [place] [address] | | | SERVICES, CORE | BERTRAM [...] [facility] | [address] | [place] [address] | | | SERVICES, CORE | PARK [...] | | | LABORATORY | | | ESTONIAN | | | SERVICES, | | | [...] | + + + + + | [facility] | [address] | [place] [address] | | | SERVICES, CORE | PARK [...] [facility] | [address] | [place] [address] | | | SERVICES, CORE | BERTRAM [...] + + | [facility] | [address] [facility] | [place] [address] | | | SERVICES, CORE | PARK [...] [facility] | [address] | [place] [address] | | | ARON, CORE | BERTRAM [...] [facility] | [address] | [place] [address] | | | SERVICES, CORE | BERTRAM [...] | | | LABORATORY | | | ESTONIAN | | | SERVICES, | | | [...] | + + + + + | [facility] | [address] | [place] [address] | | | SERVICES, CORE | PARK [...] | + + + + + | [facility] | [address] | [place] [address] | | | SERVICES, CORE | [address] | | | + + + + + WELCOME TO Mister SpexLOLA (VIDEO) (05/04/2014 2:18 PM PST) + +--------+ [...] + + + + | [facility] | [address] | [place] [address] | | | [facility] | [address] | | | + + [...] [facility] | [address] | [place] [address] | | | SERVICES, CORE | PARK [...] [facility] | [address] | [place] [address] | | | SERVICES, [facility] | [address] | | | + [...] [facility] | [address] | [place] [address] | | | SERVICES, CORE | PARK [...] [facility] | [address] | [place] [address] | | | SERVICES, CORE | PARK [...] | | | LABORATORY | | | ESTONIAN | | | SERVICES, | | | [...] | + + + + + | [facility] | [address] | [place] [address] | | | SERVICES, CORE | BERTRAM [...] | + + + + + | [facility] | [address] | [place] [address] | | | SERVICES, CORE | BERTRAM [...] [facility] | [address] | [place] [address] | | | SERVICES, CORE | PARK [...] [facility] | [address] | [place] [address] | | | SERVICES, CORE | PARK [...] [facility] | [address] | [place] [address] | | | SERVICES, CORE | PARK [...] | + + + + + | [facility] | [address] | [place] [address] | | | SERVICES, CORE | PARK [...] [facility] | [address] | [place], [place] | | | [facility]SCAR POINT OF CARE | [address] | [address] | | | TESTS | | | [...] | + + + + + | [facility] | [address] [facility] | [place] [address] | | | SERVICES, CORE | PARK [...] | + + + + + | [facility] | [address] | [place] [address] | | | SERVICES, CORE | PARK [...] | | | LABORATORY | | | ESTONIAN | | | SERVICES, | | | [...] | + + + + + | [facility] | [address] | [place] [address] | | | SERVICES, CORE | BERTRAM [...] | + + + + + | [facility] | [address] | [place] [address] | | | SERVICES, CORE | BERTRAM [...] [facility] | [address] | [place] [address] | | | ARON, JANELL | PARK [...] | | | LABORATORY | | | ESTONIAN | | | SERVICES, | | | [...] the MDRD equation recommended by the | [facility] | | National Kidney Disease Education Program. [...] + + | [facility] | [address] [facility] | [place] [address] | | | SERVICES, CORE | PARK [...] | | | LABORATORY | | | ESTONIAN | | | SERVICES, | | | [...] | + + + + + | [facility] | [address] | [place] [address] | | | SERVICES, [facility] | [address] | | | + [...] [facility] | [address] | [place], [place] | | | THERAPY | [address] | [address] | | + + + + + [...] [facility] | [address] | [place], [place] | | | THERAPY | [address] | [address] | | + + + + + [...] [facility] | [address] | [place] [address] | | | SERVICES, CORE | PARK [...] | + + + + + | [facility] | [address] | [place] [address] | | | ARON, JANELL | BERTRAM [...] [facility] | [address] | [place] [address] | | | SERVICES, CORE | [address]TR[address] [...] | | | LABORATORY | | | ESTONIAN | | | SERVICES, | | | [...] | + + + + + | [facility] | [address] | [place] [address] | | | SERVICES, CORE | PARK [...] | + + + + + | [facility] | [address] | [place] [address] | | | SERVICES, CORE | PARK [...] + + + + + + | SHAYNE-CAMRYN | 472 | ms | [facility] [...] At | + + + | | [facility] | | | CARDIOLOGY | [...] DEPT OF | [address] | [place], [place] | | | CARDIOLOGY | [address] | [address] | | + + + + + [...] | + + + + + | [facility] | [address] | [place] [address] | | | SERVICES, CORE | BERTRAM [...] SANDERS | [address] | [place], [place] | | | PEPE MOORE OF SHLOMO | [facility] | [address] | | | TESTS | | | [...] - [facility] | [address] | [place], [place] | | | OSCAR POINT OF CARE | [facility] | [address] | | | TESTS | | | [...] | + + + + + | [facility] | [address] | [place] [address] | | | SERVICES, CORE | PARK [...] Bilateral | | | | | | lvvce-nm-drjrwzay | | | | | | pleural [...] | | + +---------+ + + | [facility] DEPARTMENT OF | | | | [...] + + | [facility] | [address] [facility] | [place] [address] | | | SERVICES, CORE | PARK [...] | + + + + + | [facility] | [address] [facility] | [place] [address] | | | SERVICES, CORE | [address]ERTR[address] [...] | | | LABORATORY | | | ESTONIAN | | | SERVICES, | | | [...] [facility] | [address] | [place] [address] | | | SERVICES, CORE | PARK [...] | + + + + + | [facility] | [address] | [place] [address] | | | JANELL SHARP | BERTRAM [...] [facility] | [address] | [place], [place] | | | [facility] | [address] | [address] | | | TESTS | | | [...] JOSIANE | | | | | | VKIA 04/30/2014 | | | | | | 16:46 PM | | | | + + + + + + + + | Specimen | + + | | + + + +---------+ + + | Performing | Address | City/State/Zipcode | Phone Number | | Organization | | | | + +---------+ + + | [facility] DEPARTMENT OF | | | | [...] [facility] | [address] | [place] [address] | | | SERVICES, CORE | [address] [...] | + + + + + | [facility] | [address] | [place] [address] | | | JANELL SHARP | BERTRAM [...] [facility] | [address] | [place] [address] | | | SERVICES, CORE | [address]ERTR[address] [...] | | | LABORATORY | | | ESTONIAN | | | SERVICES, | | | [...] | + + + + + | [facility] | [address] | [place] [address] | | | SERVICES, CORE | PARK [...] | | | LABORATORY | | | ESTONIAN | | | SERVICES, | | | [...] the MDRD equation recommended by the | [facility] | | National Kidney Disease Education Program. [...] | + + + + + | [facility] | [address] | [place] [address] | | | ARON, CORE | BERTRAM [...] + + + + + | [facility] | [address] | [place], [place] | | | [facility] | [address] | [address] | | | TESTS | | | [...] [facility] | [address] | [place] [address] | | | SERVICES, CORE | PARK [...] [facility] | [address] | [place] [address] | | | SERVICES, CORE | PARK [...] | | | LABORATORY | | | ESTONIAN | | | SERVICES, | | | [...] | + + + + + | [facility] | [address] | [place] [address] | | | JANELL SHARP | BERTRAM [...] | + + + + + | [facility] | [address] [facility] | [place] [address] | | | SERVICESJANELL | [address] [...] | + + + + + | [facility] | [address] | [place] [address] | | | SERVICES, CORE | BERTRAM [...] (H) | 60 - 99 mg/dL | [facility] - | | | GLUCOSE, | [...] [facility] | [address] | [place], [place] | | | [facility] MOORE [facility] CARE | [address] | [address] | | | TESTS | | | [...] [facility] | [address] | [place] [address] | | | SERVICES, CORE | PARK [...] [facility] | [address] | [place] [address] | | | SERVICES, CORE | PARK [...] [facility] | [address] | [place] [address] | | | SERVICES, CORE | PARK [...] [facility] | [address] | [place] [address] | | | SERVICES, CORE | PARK [...] | | | LABORATORY | | | ESTONIAN | | | SERVICES, | | | [...] | + + + + + | [facility] | [address] [facility] | [place] [address] | | | ARON, JANELL | BERTRAM [...] | + + + + + | [facility] | [address] [facility] | [place] [address] | | | ARON, JANELL | BERTRAM [...] | + + + + + | [facility] | [address] [facility] | [place] [address] | | | SERVICES, CORE | PARK [...] | | + +---------+ + + | [facility] DEPARTMENT OF | | | | [...] | + + + + + | [facility] | [address] | [place] [address] | | | ARON, JANELL | BERTRAM [...] + + + | [facility] | [address] | [place], [place] | | | [facility] | [address] | [address] | | | TESTS | | | [...] [facility] | [address] | [place] [address] | | | JANELL SHARP | BERTRAM [...] | + + + + + | [facility] | [address] | [place] [address] | | | SERVICES, CORE | BERTRAM [...] | + + + + + | [facility] | [address] [facility] | [place] [address] | | | SERVICES, CORE | BERTRAM [...] [facility] | [address] | [place] [address] | | | SERVICES, CORE | BERTRAM [...] | | | LABORATORY | | | ESTONIAN | | | SERVICES, | | | [...] | + + + + + | [facility] | [address] | [place] [address] | | | SERVICES, CORE | BERTRAM [...] [facility] | [address] | [place] [address] | | | SERVICES, JANELL | PARK [...] | + + + + + | [facility] | [address] | [place] [address] | | | SERVICES, CORE | BERTRAM [...] | + + + + + | [facility] | [address] | [place] [address] | | | SERVICES, CORE | PARK [...] | + + + + + | [facility] | [address] | [place] [address] | | | SERVICES, CORE | [address] | | | + + + + + MAGNESIUM, PLASMA (04/26/2014 7:41 PM PST) + +-------+ + + + | Component | Value | Ref Range | Performed | Pathologist | | | | | At | Signature | + +-------+ + + + | MAGNESIUM,P | 2.0 | 1.8 - 2.5 mg/dL | [facility] | | | LASMA | | [...] | + + + + + | [facility] | [address] | [place] [address] | | | SERVICES CORE | [address] | | | [...] | | | LABORATORY | | | ESTONIAN | | | SERVICES, | | | [...] | + + + + + | [facility] | [address] | [place] [address] | | | SERVICES, CORE | BERTRAM [...] PRIMARY | | | | | | SOUND EFFECTS PERSON: Rudy | | | | | | [...] [facility] | [address] | [place], [place] | | | [place] [facility] | [facility] | [address] | | | TESTS | | | | + + + + + [facility] LITO PEREZ EXT CALEB MONTERROSO (04/26/2014 1:03 PM PST) [...] | | + +---------+ + + | [facility] DEPARTMENT OF | | | | [...] | + + + + + | [facility] | [address] | [place] [address] | | | SERVICES, CORE | BERTRAM [...] | | + +---------+ + + | [facility] DEPARTMENT OF | | | | [...] [facility] | [address] | [place] [address] | | | SERVICES, CORE | PARK [...] | + + + + + | [facility] | [address] | [place] [address] | | | SERVICES, CORE | PARK [...] | + + + + + | [facility] | [address] | [place] [address] | | | SERVICES, CORE | [address] | | | + + + + + CHEYENNE, ADD ON (04/25/2014 11:59 PM PST) + [...] | + + + + + | [facility] | [address] | [place] [address] | | | SERVICES, CORE | PARK [...] [facility] | [address] | [place] [address] | | | SERVICES, CORE | BERTRAM [...] | | | LABORATORY | | | ESTONIAN | | | SERVICES, | | | [...] | + + + + + | [facility] | [address] | [place] [address] | | | JANELL SHARP | BERTRAM [...] [facility] | [address] | [place] [address] | | | SERVICES, CORE | PARK [...] | + + + + + | [facility] | [address] | [place] [address] | | | ARON, JANELL | BERTRAM [...] (H) | 60 - 99 mg/dL | [facility] - | | | GLUCOSE, | [...] [facility] | [address] | [place], [place] | | | [facility] | [address] | [address] | | | TESTS | | | [...] | | | LABORATORY | | | ESTONIAN | | | SERVICES, | | | [...] the MDRD equation recommended by the | [facility] | | National Kidney Disease Education Program. [...] | + + + + + | [facility] | [address] | [place] [address] | | | JANELL SHARP | BERTRAM [...] [facility] | [address] | [place], [place] | | | [place], POINT OF CARE | [address] | [address] | | | TESTS | | | [...] | + + + + + | [facility] | [address] | [place] [address] | | | SERVICES, CORE | BERTRAM [...] | + + + + + | [facility] | [address] | [place] [address] | | | SERVICES, CORE | PARK [...] + + + + | PRODUCT | [id number] | | [facility] | | | UNIT [...] + + + + | BLOOD | [id number] | | [facility] | | | PRODUCT [...] DEPARTMENT OF | [address] | [place] [address] | | | PATHOLOGY | [address] [...] + + + + | PRODUCT | [id number] | | [facility] | | | UNIT [...] + + + + | BLOOD | [id number] | | [facility] | | | PRODUCT [...] | + + + + + | [facility] DEPARTMENT | [address] | [place] [address] | | | PATHOLOGY | [address] | | | + + + + + HEMATOCRIT (04/25/2014 6:04 AM PST) + + + + + + | Component | Value | Ref Range | Performed | Pathologist | | | | | At | Signature | + + + + + + | HEMATOCRIT | 24.4 (L) | 36.0 - 46.0 % | [facility] | | | | | | [...] | + + + + + | [facility] | [address] | [place] [address] | | | SERVICES, CORE | PARK [...] | + + + + + | [facility] | [address] | [place] [address] | | | SERVICES, CORE | PARK [...] | | | LABORATORY | | | ESTONIAN | | | SERVICES, | | | [...] the MDRD equation recommended by the | [facility] | | National Kidney Disease Education [...] | + + + + + | [facility] | [address] | [place] [address] | | | SERVICES, CORE | PARK [...] [facility] | [address] | [place] [address] | | | SERVICES, CORE | PARK [...] [facility] | [address] | [place] [address] | | | SERVICES, CORE | PARK [...] [facility] | [address] | [place] [address] | | | SERVICES, CORE | BERTRAM [...] | + + + + + | [facility] | [address] | [place] [address] | | | SERVICES, JANELL | BERTRAM [...] - [facility] | [address] | [place], [place] | | | [facility] | [address] | [address] | | | TESTS | | | [...] [facility] | [address] | [place], [place] | | | [facility]SC[facility] POINT OF CARE | [address] | [address] | | | TESTS | | | [...] [facility] | [address] | [place] [address] | | | SERVICES, CORE | BERTRAM [...] | + + + + + | [facility] | [address] | [place] [address] | | | SERVICES, CORE | BERTRAM [...] [facility] | [address] | [place] [address] | | | ARON, JANELL | BERTRAM [...] | + + + + + | [facility] | [address] | [place] [address] | | | SERVICES, JANELL | BERTRAM [...] | | + +---------+ + + | [facility] | | | | | RADIOLOGY | [...] | + + + + + | [facility] | [address] | [place] [address] | | | SERVICES, JANELL | [address] [...] | | | LABORATORY | | | ESTONIAN | | | SERVICES, | | | [...] LABORATORY | [address] | [place] [address] | | | SERVICES, CORE | PARK [...] | + + + + + | [facility] | [address] | [place] [address] | | | SERVICES, CORE | BERTRAM [...] | + + + + + | [facility] | [address] | [place] [address] | | | SERVICES, CORE [...] [facility] | [address] | [place], [place] | | | THERAPY | [address] | [address] | | + + + + + [...] + + | [facility] | [address] [facility] | [place], [place] | | | THERAPY | [address] | [address] | | + + + + + [...] | | | LABORATORY | | | ESTONIAN | | | SERVICES, | | | [...] the MDRD equation recommended by the | [facility] | | National Kidney Disease Education [...] | + + + + + | [facility] | [address] | [place] [address] | | | SERVICES, CORE | BERTRAM [...] [facility] | [address] | [place] [address] | | | SERVICES, CORE | PARK [...] | + + + + + | [facility] | [address] | [place] [address] | | | SERVICES, CORE | PARK [...] [facility] | [address] | [place] [address] | | | SERVICES, CORE | PARK [...] [facility] | [address] | [place] [address] | | | JANELL SHARP | BERTRAM [...] [facility] | [address] | [place] [address] | | | SERVICES, CORE | PARK [...] [facility] | [address] | [place] [address] | | | SERVICES, CORE | PARK [...] | | | LABORATORY | | | ESTONIAN | | | SERVICES, | | | [...] | + + + + + | [facility] | [address] | [place] [address] | | | SERVICES, CORE | BERTRAM [...] valves (2.5 - 3.5) INR APTT | JAENLL SHARP | | Therapeutic Range: (75 - 120) sec | | | Heparin levels of 0.35 - 0.7 U/mL | | + + + + + + + + | Performing | Address | City/State/Zipcode | Phone Number | | Organization | | | | + + + + + | [facility] | [address] | [place] [address] | | | JANELL SHARP | BERTRAM [...] [facility] | [address] | [place], [place] | | | [facility] | [address] | [address] | | | TESTS | | | [...] PRIMARY | | | | | | SOUND EFFECTS PERSON: Rudy | | | | | | [...] 5 | | | | | | Korean vascular sheath | | | | | [...] | | | | for a 5 Korean | | | | | | IMAcatheter. [...] | | | | artery. A 3 Korean | | | | | | microcatheterwas [...] + + + + + + | [facility] | 424 | ms | [facility] [...] + + | [facility] | [address] | [place], [place] | | | CARDIOLOGY | [address] | [address] | | + + + + + [...] + + + + | PRODUCT | [id number] | | [facility] | | | UNIT [...] + + + + | BLOOD | [id number] | | [facility] | | | PRODUCT [...] OF | [address] | [place] [address] | | | PATHOLOGY | [address] [...] + + + + | PRODUCT | [id number] | | [facility] | | | UNIT [...] + + + + | BLOOD | [id number] | | [facility] | | | PRODUCT [...] | + + + + + | [facility] DEPARTMENT OF | [address] | [place] [address] | | | PATHOLOGY | [address] [...] + + + + | PRODUCT | [id number] | | [facility] | | | UNIT [...] + + + + | BLOOD | [id number] | | [facility] | | | PRODUCT [...] DEPARTMENT OF | [address] | [place] [address] | | | PATHOLOGY | [address] [...] + + + + | PRODUCT | [id number] | | [facility] | | | UNIT [...] + + + + | BLOOD | [id number] | | [facility] | | | PRODUCT [...] | + + + + + | [facility] DEPARTMENT OF | [address] | [place] [address] | | | PATHOLOGY | [address] [...] + + + + | PRODUCT | [id number] | | [facility] | | | UNIT [...] + + + + | BLOOD | [id number] | | [facility] | | | PRODUCT [...] DEPARTMENT OF | [address] | [place] [address] | | | PATHOLOGY | [address] [...] + + + + | PRODUCT | [id number] | | [facility] | | | UNIT [...] + + + + | BLOOD | [id number] | | [facility] | | | PRODUCT [...] | + + + + + | [facility] DEPARTMENT OF | [address] | [place] [address] | | | PATHOLOGY | [address] [...] | | + +---------+ + + | [facility] DEPARTMENT OF | | | | [...] + + + + | PRODUCT | [id number] | | [facility] | | | UNIT [...] + + + + | BLOOD | [id number] | | [facility] | | | PRODUCT [...] DEPARTMENT OF | [address] | [place] [address] | | | PATHOLOGY | [address] [...] + + + + | PRODUCT | [id number] | | [facility] | | | UNIT [...] + + + + | BLOOD | [id number] | | [facility] | | | PRODUCT [...] DEPARTMENT OF | [address] | [place] [address] | | | PATHOLOGY | [address] [...] + + + + | PRODUCT | [id number] | | [facility] | | | UNIT [...] + + + + | BLOOD | [id number] | | [facility] | | | PRODUCT [...] DEPARTMENT OF | [address] | [place] [address] | | | PATHOLOGY | [address] [...] + + + + | PRODUCT | [id number] | | [facility] | | | UNIT [...] + + + + | BLOOD | [id number] | | [facility] | | | PRODUCT [...] | + + + + + | [facility] DEPARTMENT OF | [address] | [place] [address] | | | PATHOLOGY | [address] [...] + + + + | PRODUCT | [id number] | | [facility] | | | UNIT [...] + + + + | BLOOD | [id number] | | [facility] | | | PRODUCT [...] | + + + + + | [facility] DEPARTMENT OF | [address] | [place] [address] | | | PATHOLOGY | [address] [...] + + + + | PRODUCT | [id number] | | [facility] | | | UNIT [...] + + + + | BLOOD | [id number] | | [facility] | | | PRODUCT [...] | + + + + + | [facility] DEPARTMENT OF | [address] | [place] [address] | | | PATHOLOGY | [address] [...] + + + + | PRODUCT | [id number] | | [facility] | | | UNIT [...] + + + + | BLOOD | [id number] | | [facility] | | | PRODUCT [...] DEPARTMENT OF | [address] | [place] [address] | | | PATHOLOGY | [address] [...] + + + + | PRODUCT | [id number] | | [facility] | | | UNIT [...] + + + + | BLOOD | [id number] | | [facility] | | | PRODUCT [...] | + + + + + | [facility] DEPARTMENT OF | [address] | [place] [address] | | | PATHOLOGY | [address] [...] + + + + | PRODUCT | [id number] | | [facility] | | | UNIT [...] + + + + | BLOOD | [id number] | | [facility] | | | PRODUCT [...] | + + + + + | [facility] DEPARTMENT | [address] | [place] [address] | | | PATHOLOGY | [address] [...] + + + + | PRODUCT | [id number] | | [facility] | | | UNIT [...] + + + + | BLOOD | [id number] | | [facility] | | | PRODUCT [...] | + + + + + | [facility] DEPARTMENT OF | [address] | [place] [address] | | | PATHOLOGY | [address] [...] + + + + | PRODUCT | [id number] | | [facility] | | | UNIT [...] + + + + | BLOOD | [id number] | | [facility] | | | PRODUCT [...] | + + + + + | [facility] DEPARTMENT OF | [address] | [place] [address] | | | PATHOLOGY | [address] [...] + + + + | PRODUCT | [id number] | | [facility] | | | UNIT [...] + + + + | BLOOD | [id number] | | [facility] | | | PRODUCT [...] | + + + + + | [facility] DEPARTMENT OF | [address] | [place] [address] | | | PATHOLOGY | [address] [...] + + + + | PRODUCT | [id number] | | [facility] | | | UNIT [...] + + + + | BLOOD | [id number] | | [facility] | | | PRODUCT [...] OF | [address] | [place] [address] | | | PATHOLOGY | [address] [...] + + + + | PRODUCT | [id number] | | [facility] | | | UNIT [...] + + + + | BLOOD | [id number] | | [facility] | | | PRODUCT [...] | + + + + + | [facility] DEPARTMENT OF | [address] | [place] [address] | | | PATHOLOGY | [address] [...] [facility] | [address] | [place] [address] | | | SERVICES, CORE | PARK [...] [facility] | [address] | [place] [address] | | | SERVICES, JANELL | BERTRAM [...] CBC INR Therapeutic ranges for full | [facility] | | anticoagulation: INR for Venous Thromboembolism | LABORATORY | | (2.0 - 3.0) INR INR for most patients with mech. valves (2.5 | JANELL SHARP | | - 3.5) INR APTT Therapeutic Range: | | | (75 - 120) sec Heparin levels of 0.35 - 0.7 U/mL | | + + + + + + + + | Performing | Address | City/State/Zipcode | Phone Number | | Organization | | | | + + + + + | [facility] | [address] | [place] [address] | | | JANELL SHARP | [address] [...] | | | LABORATORY | | | ESTONIAN | | | SERVICES, | | | [...] [facility] | [address] | [place] [address] | | | SERVICES, CORE | PARK [...] [facility] | [address] | [place] [address] | | | SERVICES, CORE | PARK [...] + + | [facility] | [address] [facility] | [place] [address] | | | SERVICES, CORE | PARK [...] | + + + + + | [facility] | [address] | [place] [address] | | | SERVICES, JANELL | BERTRAM [...] 89 | 60 - 99 mg/dL | [facility] - | | | GLUCOSE, | [...] [facility] | [address] | [place], [place] | | | [facility] | [facility] | [address] | | | TESTS | | | [...] [facility] | [address] | [place] [address] | | | SERVICES, | [address] [...] | + + + + + | [facility] | [address] | [place] [address] | | | SERVICES, | [address] [...] + + + + | PRODUCT | [id number] | | [facility] | | | UNIT [...] + + + + | BLOOD | [id number] | | [facility] | | | PRODUCT [...] | + + + + + | [facility] DEPARTMENT OF | [address] | [place] [address] | | | PATHOLOGY | [address] [...] + + + + | PRODUCT | [id number] | | [facility] | | | UNIT [...] + + + + | BLOOD | [id number] | | [facility] | | | PRODUCT [...] DEPARTMENT OF | [address] | [place] [address] | | | PATHOLOGY | [address] [...] + + + + | PRODUCT | [id number] | | [facility] | | | UNIT [...] + + + + | BLOOD | [id number] | | [facility] | | | PRODUCT [...] | + + + + + | [facility] | [address] | [place] [address] | | | PATHOLOGY | [address] [...] + + + + | PRODUCT | [id number] | | [facility] | | | UNIT [...] + + + + | BLOOD | [id number] | | [facility] | | | PRODUCT [...] DEPARTMENT OF | [address] | [place] [address] | | | PATHOLOGY | [address] [...] + + + + | PRODUCT | [id number] | | [facility] | | | UNIT [...] + + + + | BLOOD | [id number] | | [facility] | | | PRODUCT [...] | + + + + + | [facility] | [address] | [place] [address] | | | PATHOLOGY | [address] [...] + + + + | PRODUCT | [id number] | | [facility] | | | UNIT [...] + + + + | BLOOD | [id number] | | [facility] | | | PRODUCT [...] | + + + + + | [facility] | [address] | [place] [address] | | | PATHOLOGY | [address] [...] | | | | | modification) on [facility] 05/02/14 at | | | | | [...] | | | | ONCE, 1 dose, [facility] 04/25/14 at | | AM PST | [...] | | | | | modification) on [facility] 05/02/14 at | | | | | [...] | | | | | dose on [facility] 05/02/14 at 0530, | | | | [...] | | | (after last modification) on Tue | | | [...] PST | | | | | Starting 04/23/14 at 1537, | | | | [...] | | | | | 2341, Until 04/30/14 at 1141, | | | | | [...] | | | tube, ONCE, 1 dose, [facility] 04/25/14 | | PM PST | | | | | at 1330 | | | | | | + +-------+ +--------+---+---+ +---+---+ | | | +---+---+ + +-------+ +--------+---+---+ | potassium chloride (KLOR-CON) | Given | 05/01/19 | 40 mEq | | | | packet 40 mEq 40 mEq, feeding | | 15 5:39 | | | | | tube, ONCE, 1 dose, [facility] 05/01/14 | | AM PST | | [...] | | | | First dose on Tue05/09/14 at | | PM PST | | [...] | | | | | modification) on [facility] 04/27/14 at | | | | | [...] | | | | | 2104, Until Tue05/13/14 at 1515, | | | | | | | insomnia | | | | | | + +-------+ +------+---+---+ +---+---+ | | | +---+---+ documented in this encounter
--- OUTSIDE RECORDS SUMMARY | ~2019-03-09 | XMS | Encounter Summary ---
Demographics + + + | Address | [address] | | | [place] [address] | + + + | Home Phone | | + + + | Preferred Language | Unknown | + + + | Marital Status | | + + + | Hinduism Affiliation | NRP | + + + [...] [place], [place] | | | | | [address] | | + + + + + | Cami Sawyer | ECON | Unknown | | + + + + + Care Team Providers + +------+ + | Care Steam Engineer Name | Role | Phone | [...] Hospital | | | | | | [place], [place] | [place], [place] | | | | | | [address] | [address] | | | | | | Phone: | Phone: | | | | | | [phone] | [phone] | | | | | | Fax: | Fax: | | | | | | [phone] | [phone] | +--------+--------+ + + + + Diagnostic [...] | | | | | | | [place], [place] | | | | | | | [address] | | | | | | | Phone: | | | | | | | [phone] | | | | | | | Fax: | | | | | | | [phone] | +--------+--------+ + + + + Diagnostic [...] | | | | EXTREM[place] | [place] [address] | Mailcode: | | | | | BILAT | Phone: | [id number] | | | | | | [phone] | Physician's | | | | | | Fax: | Pavilion | | | | | | [phone] | [place], [place] | | | | | | | [address] | | | | | | | Phone: | | | | | | | [phone] | | | | | | | Fax: | | | | | | | [phone] | +--------+--------+ + + + + Diagnostic [...] | | | | | | | [place], [place] | | | | | | | [address] | | | | | | | Phone: | | | | | | | [phone] | | | | | | | Fax: | | | | | | | [phone] | +--------+--------+ + + + + Diagnostic [...] | | | Dariela Saab MD | [facility] [address] | | | | | TRAN[address]ACI | | [address] | | | | | C | | Mailcode: | | | | | ECHOCARDIOGR | | [address] | | | | | AM, ADULT | | [address] | | | | | | | [place] | | | | | | | [place], [place] | | | | | | | [address] | | | | | | | Phone: | | | | | | | [phone] | +--------+--------+ + + + + Diagnostic [...] | | | | EXTREM[place] | [place] [address] | Mailcode: | | | | | BILATERAL | Phone: | [id number] | | | | | COMPLETE | [phone] | Physician's | | | | | | Fax: | Pavilion | | | | | | [phone] | [place], [place] | | | | | | | [address] | | | | | | | Phone: | | | | | | | [phone] | | | | | | | Fax: | | | | | | | [phone] | +--------+--------+ + + + + Diagnostic [...] | | | | COMPLETE | [place] [address] | Mailcode: | | | | | BILATERAL | Phone: | [id number] | | | | | | [phone] | Physician's | | | | | | Fax: | Pavilion | | | | | | [phone] | [place], [place] | | | | | | | [address] | | | | | | | Phone: | | | | | | | [phone] | | | | | | | Fax: | | | | | | | [phone] | +--------+--------+ + + + + Diagnostic Testing (Routine) +--------+--------+ + + + + | Status | Reason | Specialty | Diagnoses / | Referred By | Referred To | | | | | Procedures | Contact | Contact | +--------+--------+ + + + + | Closed | | Radiology | Procedures | Galvez, | Denise Vasc | | | | [...] | | | | | | | [place], [place] | | | | | | | [address] | | | | | | | Phone: | | | | | | | [phone] | | | | | | | Fax: | | | | | | | [phone] | +--------+--------+ + + + + Diagnostic [...] | | | | | | | [place], [place] | | | | | | | [address] | | | | | | | Phone: | | | | | | | [phone] | | | | | | | Fax: | | | | | | | [phone] | +--------+--------+ + + + + Reason [...] + + | 03/12/ | Hospital | [facility] [address] | [address], | | | 2011 - | Encounter | [address] | [address] | | | | | [address] [place] [address] | [facility] [place] | | | 04/01/ | | [place], [place] | [address] | | | 2011 | | [address] | [phone] | | | | | [phone] | | | | | | | Chary Doherty, | | | | | | [address] | | | | | | [address] | | | | | | [place], [place] | | | | | | [address] | | | | | | [phone] | | | | | | | | | | | | Xin Rust | | | | | | MD Nena [address] | | | | | | Romeo [facility] | | | | | | [place], [place] | | | | | | [address] | | | | | | [phone] | | | | | | | | | | | | Osbaldo Garcia MD | | | | | | [address] | | | | | | [facility], | | | | | | [place] [address] | | | | | | [phone] | | | | | | | [...] Chronic pain Reason For Admission: Mrs. Mackenzie Hratley is a 56 yo F with long [...] Arterial thrombi: the patient was admitted to [facility] from [place] because she presented wit h nausea, bilious vomiting and was found by CT scan to have bowel wall thickening, 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 At arrival to [facility] it was learned that she did NOT indeed have ischemic colitis. 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 She underwent embolectomy on 03/17, which resulted in caodaism of flow and no loss of tissue [...] Destination: Home Other Discharge Orders and Instructions setup operator your lovenox syringes at the physician's pavilion [...] GI doctor in [facility] to arrange for your second infusion of [...] whether or not the INR is truly labor service representative of anticoagulation. In patients with APLA [...] I NR on Tuesday. KIRIT MD YOCASTA [facility] DEPARTMENT: [id number]- [facility] Faculty PPV Place of Service:- Inpatient Date of Service: 04/01/2012 CSN: [id number] Suggested Modifier: Resident Involved: Yes Suggested CPT: 64495- Dishcarge < 30 min Electronically signed by [...] questions. Debi Oconnor MD GI/Hepatology Fellow Pager: [phone] INTERVAL HISTORY: MRI abdomen shows no abscess; [...] Internal Medicine Attending Interval note Hospital day: Patient Active Hospital Problem List: 1) *Sepsis [...] risk of emboli, I called Dr. Rodriges (fire control system installer for her PCP) to coordinate f/u of [...] noted any additions above. KIRITMarisa RUST MD [facility] DEPARTMENT: [id number]- [facility] Faculty PPV Place of Service:- Inpatient Date of Service: 03/31/2012 CSN: [id number] Suggested Modifier: Resident Involved: Yes Suggested CPT: 67452- Subsequent, Detailed/high complex, 35 min Davonte De [...] state: J Gastroenterol. 2004 Jan;39(10):948-54. PubMed PMID: [id number]. Consulted [facility] for further studies on platelet inhibitor and [...] no insurance. Wanting to go home for [place]. Nurse repor ts that she has admitted [...] income that does not q ualify for Sipwise. F/E/N Thrombosis ppx: Warfarin, Lovenox bridge Glucose: not indicated Diet: regular Code: Do Not Resuscitate/Do Not Intubate This patient was seen with GM3, refer to Attending and Resident notes for assessment and pl an. Nuñez [place], Sub-Cell Assembly Pinner Pgr: [phone] Ajay De La Rosa MD - 03/30/2012 [...] bridge after d/c until coumading therapeutic with long term care administrator through medication assistance program Hypoalbuminemia (03/14/2012) Assessment: [...] noted any additions above. KIRIT MD YOCASTA [facility] DEPARTMENT: [id number]- [facility] Faculty PPV Place of Service:- Inpatient Date of Service: 03/30/2012 CSN: [id number] Suggested Modifier: Resident Involved: Yes Suggested CPT: 65289- Subsequent, Detailed/high complex, 35 min Debi Yepez [...] follow closely Shaun SAEED GI Fellow Pg [phone] signed by Debi Oconnor MD at 03/30/2012 5:32 PM Jacoby Ko MD - 03/30/2012 10:25 AM PSTFormatting of this note might be different from the origi nal. [facility] DEPARTMENT OF SURGERY Daily Progress Note PROGRESS NOTE: Attending Physician: Xin Rust MD 03/31/2012 Subjective/Overnight Events: - latest CT shows resolution of abscess - no GI bleeding - no rectal/anal pain - tolerating reg diet MEDICATIONS: Reviewed in [facility] VITAL SIGNS: Refer to [facility] Intake/Output Summary (Last 24 hours) [...] concerns. Jacoby Tovar MD Surgery, R2 Diagnoses: [id number] Crohn disease This assessment and plan was [...] or exceptions in my pro su note. Joauqin Hui - 03/30/2012 7:51 AM PST Medicine [...] state: J Gastroenterol. 2004 Jan;39(10):948-54. PubMed PMID: [id number]. Consulted Heme for further studies on platelet [...] this note might be different from the dellaa luisito. Transfer Accept Note Patient: Mackenzie Hartley Attending: [...] Nathan Weeks MD Internal Medicine PGY1 Pager [phone] ecilia Toney MD - 03/29/2012 6:37 PM [...] celiac. If pt is having ischemia t hugn most likely either non-occlusive or embolic. Would [...] team. Debi Oconnor MD GI Fellow Pager [phone] signed by Debi Oconnor MD at 03/29/2012 [...] planning) Debi Oconnor MD Fellow, Gastroenterology pager: [phone] signed by Debi Oconnor MD at 03/29/2012 [...] note for this encounter. OSBALDO GARCIA MD [facility] [address] [facility] [address] [place] [address] Andrew Shah MD - 10:41 AM PST [facility] DEPARTMENT OF SURGERY Daily Progress Note PROGRESS NOTE: Attending Physician: Osbaldo Garcia MD 03/29/2012 Subjective/Overnight Events: - bowel prep initiated - Hct stable - no hematochezia or hemetemesis - MEDICATIONS: Reviewed in [facility] VITAL SIGNS: Refer to [facility] Intake/Output Summary (Last 24 hours) [...] GI Jacoby Tovar MD Surgery, R2 Diagnoses: [id number] Crohn disease This assessment and plan was [...] myself provided conscious sedation. OSBALDO GARCIA MD [facility] [address] [place] [address] I spent 35 min in critical care (not including procedures) [facility] DEPARTMENT: MICU, [facility]- [id number] Place of Service: Date of Service: 03/29/2012 CSN: [id number] Modifiers:GC Resident Involved: yes Suggested CPT: 07563 Critical Care, Initial 30-74 minutes Carlton Godwin [...] 0659 03/29/12 0700 - 03/30/12 0659 Shift 1823-2772 2680-9379 1046-8535 Daily Total 7636-9938 6124-0395 2613-3259 Daily Total I N T A K E P.O. 1750 2525 4275 I.V. 934 2641 789 1940 Shift Total 934 3740 3450 8124 O U T P U T Urine 1075 2950 1875 5900 Urine 1075 2950 1875 5900 Other 575 966 742 3874 Measured Stool Output 350 425 775 Stool/Urine Mix 575 575 Shift Total 1650 3300 2300 7250 NET -221 376 0084 874 Intake/Output Summary (since admission) at 03/12/12 1910 Last data filed at 03/29/12 0547 Gross for the last 17 days Intake 06467 ml Output 73870 ml Net since Admission -06545 ml Physical Exam: General Appearance: middle aged [...] Carlton Betancourt DO PGY-1 Internal Medicine Pager [phone] Debi Yepez MD - 03/11 4:31 PM [...] questions. Debi Oconnor MD GI/Hepatology Fellow Pager: [phone] INTERVAL HISTORY: Episode of melena last night [...] patient in the past. OSBALDO GARCIA MD [facility] [address] [address] I spent 35 min in critical care (not including procedures) [facility]- [id number] Place of Service: Date of Service: 03/28/2012 CSN: [id number] Modifiers:GC Resident Involved: yes Suggested CPT: 70262 Critical Care, Initial 30-74 minutes Carlton Godwin [...] 0659 03/28/12 07 - 03/29/12 0659 Shift 9115-6672 3659-7195 5156-8950 Daily Total 0644-1789 9454-0270 6961-2784 Daily Total I N T A K E P.O. 240 300 540 I.V. 404 404 934 934 Blood 1300 1300 Shift Total 814 390 3101 2244 934 934 O U T P [...] Gross for the last 16 days Intake 07750 ml Output 16008 ml Net since Admission -55938 ml Physical Exam: General Appearance: tearful middle [...] go but MICU attending conversation with osiris durán decided to proceed with CT abdomen with [...] Carlton Betancourt DO PGY-1 Internal Medicine Pager [phone] Andrew Shah MD - 6:52 AM PST [...] Sukumar Zuniga DO Internal Medicine PGY-2 Pg [phone] Davonte De La Rosa MD - 03/27/2012 [...] noted any additions above. KIRIT MD YOCASTA [facility] DEPARTMENT: [id number]- [facility] Faculty PPV Place of Service:- Inpatient Date of Service: 03/27/2012 CSN: [id number] Suggested Modifier: GC Resident Involved: Yes Suggested CPT: 65453- Subsequent, Detailed/high complex, 35 min Marely Mccann [...] was discussed and formulated with gastroenterology at [facility], Dr. Hennessy. Please call with any questions. Debi Oconnor MD GI/Hepatology Fellow Pager: [phone] INTERVAL HISTORY: Imaging reviewed with radiology; too [...] "questionable after living 7 years of hell". Solid Waste Disposal Manager team will follow as needed. Chaplain Dung Riley M.Div., [facility] [phone] Pager #[phone]; #[phone] Xin De La Rosa MD - 7:31 [...] Hours (or 3 results): Recent Labs Basename 03/27/1252603/26/1243503/25/12 0313 NA 143 142 141 K 3.6 [...] J Gastroenterol. 2004 Jan;39(10):948-54. PubMed PMID: [id number]. Consulted Heme for further studies on platelet inhibitor and recommend repeating in 6 months. No new evidence of thrombosis on exam, but lung opacities concerning for alveolar hemorrhage while on warfarin. - - doppler pulses - - Coumadin at therapeutic range INR 2-3 #Anemia - iron deficiency likely from Crohn's despite absence of clear hematochezia or douglas na. Leo on 03/16. Stable Hct 30-31. - - [...] an. ---- Joaquin Rivera, MS4 Pager # [phone] signed by Xin Rust MD at 03/27/2012 [...] noted any additions above. 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 Raphael Norman MD Internal Medicine, PGY-2 [id number] Xin De La Rosa MD - 03/25/2012 8:58 PM [facility]3 Internal Medicine Attending Interval note [...] - not larger Resident spoke with radiology orderly who spoke with staff - they did [...] taking more PO if still low ask diagnostic radiologist to see Hypophosphatemia (03/14/2012) Assessment: rechecked and [...] noted any additions above. KIRIT MD YOCASTA [facility] DEPARTMENT: [id number]- [facility] Faculty PPV Place of Service:- Inpatient Date of Service: 03/25/2012 CSN: [id number] Suggested Modifier: GC Resident Involved: Yes Suggested CPT: 51674- Subsequent, Detailed/high complex, 35 min oaquin Rivera [...] Hours (or 3 results): Recent Labs Basename 03/25/12 0313 03/24/12 0532 03/23/12 0736 NA 141 142 [...] J Gastroenterol. 2004 Jan;39(10):948- 54. PubMed PMID: [id number]. Consulted Heme for further studies on platelet [...] income that does not qualif y for Sipwise F/E/N Thrombosis ppx: Warfarin Glucose: not indicated Diet: regular Code: Do Not Resuscitate/Do Not Intubate This patient was seen with GM3, refer to Attending and Resident notes for assessment and pl an. ---- Joaquin Nicole, MS4 Pager # [phone] Ajay De La Rosa MD - 03/24/2012 [...] drainage of abscess and coordination of care [facility] radiology reviewing perirectal abscess imaging, options for intervention and need for rep eat imagin, also with GI on plan. I personally interviewed the patient, performed the gunter elements of the physical examinatio n, and personally formulated the assessment and plan with the resident. I agree with the MS4 s documentation and have noted any additions above. KIRIT RUST MD [facility] DEPARTMENT: [id number]- [facility] Faculty PPV Place of Service:- Inpatient Date of Service: 03/24/2012 CSN: [id number] Suggested Modifier: Resident Involved: Yes Suggested CPT: 38678- Subsequent, Detailed/high complex, 35 min Davonte De [...] associated with hypercoagulable state: J Gastroenterol. 2004 Oct;39(10):948- 54. PubMed PMID: [id number]. Consulted Heme for further studies on platelet [...] assessment and pl an. ---- Joaquin Rivera, ND4 Pager # [phone] Ajay De La Rosa MD - 03/23/2012 10:44 PM [facility]3 Internal Medicine Attending Interval note [...] noted any additions above. KIRITMarisa RUST MD [facility] DEPARTMENT: [id number]- [facility] Faculty PPV Place of Service:- Inpatient Date of Service: 03/23/2012 CSN: [id number] Suggested Modifier: AKHIL Resident Involved: Yes Suggested CPT: 97911- Subsequent, Detailed/high complex, 35 min Davonte De [...] to be done today JERI DIAZ MD [address] [facility] [address] [place] [address] Xin De La Rosa MD - 03/23/2012 [...] state: J Gastroenterol. 2004 Jan;39(10):948-54. PubMed PMID: [id number]. Consulted Heme for further studies on platelet [...] has income that does not qualify for Sipwise F/E/N Thrombosis ppx: Warfarin Glucose: not indicated Diet: regular Code: Do Not Resuscitate/Do Not Intubate This patient was seen with GM3, refer to Attending and Resident notes for assessment and pl an. ---- Joaquin Rivera, MS4 Pager # [phone] Ajay De La Rosa MD - 03/22/2012 10:50 PM [facility]3 Internal Medicine Attending Interval note [...] noted any additions above. KIRITMarisa RUST MD [facility] DEPARTMENT: [id number]- [facility] Faculty PPV Place of Service:- Inpatient Date of Service: 03/22/2012 CSN: [id number] Suggested Modifier: GC Resident Involved: Yes Suggested CPT: 35088- Subsequent, Detailed/high complex, 35 min ox, Jeri [...] carotid duplex ordered today JERI DIAZ MD [facility] [address] [place] [address] Xin De La Rosa MD - 03/22/2012 [...] 03/20/12 202 1 NA -- 141 @ [facility] -- 142 139 K -- 3.8 [...] PTT in mixing 1:1 Neg cardiolipin, neg tdex-V-womieeinmkgq Legionella Agg Urine pending Cultures: BLOOD CULTURE [...] barber: J Gastroenterol. 2004 Jan;39(10):948-54. PubMed PMID: [id number]. - Consult Heme for further studies on [...] an. ---- Joaquin Rivera, VIVIANA Pager # [phone] Ajay De La Rosa MD - 03/21/2012 [...] - despite multifocal pna read by Dr. Whiftield ss today, he felt more likely hemorrhage, [...] BP 142/76 | Pulse 106[sinus tach per telecommunications engineer[ | Temp 37.7 C (99.9 F) | [...] -- also coordination of care with pharmD. [facility] DEPARTMENT: [id number]- [facility] Faculty PPV Place of Service:- Inpatient Date of Service: 03/21/2012 CSN: [id number] Suggested Modifier: GC Resident Involved: Yes Suggested CPT: 12633- Subsequent, Detailed/high complex, 35 min ennifer Staples [facility] - 03/21/2012 12:38 PM PST . [...] y.o. Female with multiple complex medical problems; [facility] Vascular Surge ry consulted due [...] as new baseline Ok to discharge per [facility] Vascular Surgeons once ambulating and medical issues are stable. Will continue to follow while in patient. [facility] Vascular Surgery Clinic, [facility] [address], phone number [phone] Please schedule followup appointment within 2-3 weeks of surgery for wound check. Dr. Sukumar Salgado, [facility] Vascular Surgery Attending. MERT OLIVA [facility] VASCULAR SURGERY [address] [place] [address] ham, Moses Asher MD - 03/21/2012 6:55 [...] w ill need to establish care with unarmed security officer so that further treatment options can be [...] assessment and plan. Moses Anthony MD Neurology Cell Assembly Pinner Pager [phone] oaquin Rivera - 02/2012 6:55 AM PST Medicine Progress Note Refer to Attending and Resident Notes for Assessment and Plan Hospital Day # 9 Patient:Mackenzie Hartley, Attending: Xin Rust MD Author:Joaquin Rivera ND4 ID:Mackenzie Hartley is a 56 y.o. female with a history of Chron's, vaginal fistula, and chronic perirectal fistulas who presents from OSH with Chron's flair, multivessel thrombi, and found to have PFO on TTE, now febrile. 24 Hour Events: Continue IV vanc, cefepime, flagsatish Continues to spike fevers, last 39.2 HR [...] an. ---- Joaquin Rivera, MS4 Pager # [phone] Xin De La Rosa M D - [...] noted any additions above. KIRIT MD YOCASTA [facility] DEPARTMENT: [id number]- [facility] Faculty PPV Place of Service:- Inpatient Date of Service: 03/20/2012 CSN: [id number] Suggested Modifier: Resident Involved: Yes Suggested CPT: 18539- Subsequent, Detailed/high complex, 35 min Jennifer Tolentino [...] y.o. Female with multiple complex medical problems; [facility] Vascular Surge ry consulted due [...] chair as tolerated, RLE WBAT -Please obtain [facility] Lab Arterial duplex ultrasound/DELORIS of both legs prior to discharge as n ew baselineObtain ABIs with waveforms To establish new blood-flow baseline Ok to discharge per [facility] Vascular Surgeons once ambulating and medical issues are stable. Will continue to follow while in patient. [facility] Vascular Surgery Clinic, [facility] [address], phone number [phone] Please schedule followup appointment within 2-3 weeks of surgery for wound check. Dr. Sukumar Salgado, [facility] Vascular Surgery Attending. MERT OLIVA [facility] VASCULAR SURGERY [address] [place] [address] Raphael Osorio - 7:58 AM PSTI agree with the [...] plan. Raphael Norman MD Internal Medicine, PGY-2 [id number] oaquin Rivera - 2011 7:58 AM PST Medicine Progress Note Refer to Attending and Resident Notes for Assessment and Plan Hospital Day # 8 Patient:Mackenzie Hartley, Attending: Xin Rust MD Author:VIVIANA Steele ID:Mackenzie Hartley is a 56 y.o. female with a history of Chron's, vaginal fistula, and chronic perirectal fistulas who presents from OSH with Chron's flair, multivessel thrombi, and found to have PFO on TTE, now febrile. 24 Hour Events: Febrile: yesterday 102.6 @1600 hrs,Tylenol/oxy 1700 hrs, cefepime 7 hrs 100.6@2230 hrs, now 100@0718 hrs, 102.9 [...] an. ---- Joaquin Rivera, MS4 Pager # [phone] Juma Pimentel MD - 12/2011 3:35 PM [...] Q6H, Moses Asher MD, 250 mg at 12/21 1514 ciprofloxacin (aka CIPRO) tablet 500 [...] 16 g, 16 g, Oral, Q15MIN PRN, Biibana Adams PA-C heparin 10 unit/mL IV flush [...] record is Dr. Salgado. JUMA CARRINGTON MD [facility] [address] [place] [address] Chary Moore M D - 03/19/2012 9:14 [...] note from 03/14 for details. Therefore the lmak-cqmy-mxeji plan givens s been to allow her [...] plan. Lovenox bridge to be covered by [facility]. 9) Occlusive thrombus 10) Hypoalbuminemia 11) Hypophosphatemia 12) TIA (transient ischemic attack) - with PFO 13) PFO (patent foramen ovale) - plan is for lifelong coumadin. No additional benefit from device closure per CLOSURE I trial. Chary Doherty MD Chief Resident, Internal Medicine Pager: [phone] [facility] DEPARTMENT: Hosp- [id number] Place of Service: Date of Service: 03/19/2012 CSN: [id number] Modifiers:GC Resident Involved: Yes Suggested CPT: 81206 Subsequent Visit Detailed/High complexity 35 min I [...] will need to establish c are with unarmed security officer so that further treatment options can be [...] assessment and plan. Moses Anthony MD Neurology Cell Assembly Pinner Pager [phone] Jose Antonio Baker MD - 03/18/2012 1:01 [...] outpt GI, plans to establish care in [place], perhaps Dr. Byrd. Transitioning to PO meds, [...] Doherty MD Chief Resident, Internal Medicine Pager: [phone] [facility] DEPARTMENT: [facility]- [id number] Place of Service: Date of Service: 03/18/2012 CSN: [id number] Modifiers: Resident Involved: Yes Suggested CPT: 79358 Subsequent Visit Exp Prob Foc/Mod Complexity 25 min I have spent 30 minutes with the patient of which more than 50% was spent counseling oses Anthony MD - 03/18/2012 9:18 AM PST General [...] Date 03/18/12 07 - 03/19/12 0659 Shift [id number] 9690-0713 8606-0313 24 Hour Total I N T A K E P.O. 620 620 I.V. 20 20 40 Shift Total 640 20 660 O U T P U T Urine 675 100 775 Other 400 400 Shift Total 882 601 6839 Weight (kg) 74.1 74.1 74.1 74.1 General: [...] refusing). Will need to establish care with unarmed security officer so that further treatment options can be [...] in MS4 note. Moses Anthony MD Neurology Cell Assembly Pinner Pager [phone] signed by Moses Asher MD at 03/18/2012 9:50 PM PSTSerenity Rivera - 03/18/2012 9:18 AM PST Medicine [...] an. ---- Nuñez Nicole, MS4 Pager # [phone] Chary Moore MD - 03/17/2012 8:39 PM [...] refusing). Will need to establish care with unarmed security officer so this can be discussed as outpt [...] Doherty MD Chief Resident, Internal Medicine Pager: [phone] [facility] DEPARTMENT: Hosp- [id number] Place of Service: IP - Date of Service: 03/17/2012 CSN: [id number] Modifiers:GC Resident Involved: Yes Suggested CPT: 07334 Subsequent Visit Detailed/High complexity 35 min I [...] at end of case. MIRELA SALGADO MD [facility] [address]A [address] [id number] [place] [phone] hamGloria MD - 1 05/18/2011 7:19 AM PST [...] until she's therapeutic with her coumadin and [facility] has agreed to provide discounted INR [...] y Gloria Anthony MD Neurology PGY1 Pager: [phone] oaquin Rivera - 10/2011 7:19 AM PST [...] an. ---- Joaquin Rivera, MS4 Pager # [phone] Chary Moore MD - 03/16/2012 12:56 PM [...] Doherty MD Chief Resident, Internal Medicine Pager: [phone] [facility] DEPARTMENT: Hosp- [id number] Place of Service: [facility] Date of Service: 03/16/2012 CSN: [id number] Modifiers: Resident Involved: Yes Suggested CPT: 44076 Subsequent Visit Exp Prob Foc/Mod Complexity 25 min and 22106 Subseque nt Visit Detailed/High complexity 35 min [...] NPO p [place] Sandoval Galvez MD, R-4 TPham, Gloria Lawson MD - 03/16/2012 7:43 AM PST INPATIENT [...] DNR/DNI Gloria Anthony MD Neurology PGY-1 Pager [phone] The patient was seen and discussed with the attending of record, Chary Doherty MD, who agrees with my assessment and plan. Oscar, Chary Ferrer MD - 03/15/2012 9:30 PM [...] Doherty MD Chief Resident, Internal Medicine Pager: [phone] [facility] DEPARTMENT: Hosp- [id number] Place of Service: Date of Service: 03/15/2012 CSN: [id number] Modifiers: Resident Involved: Yes Suggested CPT: 57743 Subsequent Visit Detailed/High complexity 35 min Dariela [...] flagyl 500mg TID x 14 days -f/u 12/ blood cultures Crohn's Disease/flare - [...] plan. Dariela Santoyo MD Internal Medicine PGY-3 [phone] Daryl Singleton MD - 08/2011 7:18 PM PSTHematology Attending Consult Note: I saw and examined Ms. Hartley with the Hematology Fellow, Dr. Anthony Camejo and [facility] [place] the 5[facility] Medicine unit. I participated in the gunter components of today's [facility] pital visit including review of the [...] re Daryl Arteaga MD, PhD Hematology Oncology [facility] DEPARTMENT: [id number] Place of Service: - Inpatient Date of Service: 03/15/2012 Modifiers: GC - Resident Involved Suggested CPT: 33609 - Subsequent, Detailed/High complex 35 min raAnthony lux MD - 03/15/2012 7:18 PM PST Hematology [...] anticoagulation clinic f/u closely; our clinic at [facility] cannot provide any suppli es [...] as above. MD Hematology/Oncology Fellow Pager # [phone] signed by Daryl Arteaga MD at 03/15/2012 [...] with any questions. Bigg Robles, R1 Pager: [phone] INTERVAL HISTORY: - NAEO - VSS, AF [...] wishes to pro ceed. Mirela Samano M.D. [facility] Vascular Surgery [address] [place] [address], [place] [phone] Email: [email or web address] Sandoval Ko MD - 03/15/2012 [...] off to day. Jacoby Tovar MD Surgery [id number] signed by Sandoval Tovar MD at 03/15/2012 [...] monitor Gloria Anthony MD Neurology PGY1 Pager [phone] Daryl Singleton MD - 07/2011 4:57 PM PSTHematology Attending Consult Note: I saw and examined Ms. Hartley with the Hematology Fellow, Dr. Anthony Camejo in the [address] [place] [address] unit. I participated in the gunter components [...] re Daryl Arteaga MD, PhD Hematology Oncology [facility] DEPARTMENT: [id number] [facility] Place of Service: - Inpatient Date of Service: 03/14/2012 Modifiers: GC - Resident Involved Suggested CPT: 24266 - Subsequent, Detailed/High complex 35 min Anthony [...] 3 results) Recent Labs Basename 03/14/12 1150 12/04/52403/13/1234103/12/121917 WBC 22.7* 23.4* 42.5* -- HB 6.9* [...] Basename 03/14/12 1303 03/14/12 0939 03/14/12 0610 03/14/1225 03/13/1234103/12/12 200 6 03/12/121917 NA -- -- -- [...] as above. MD Hematology/Oncology Fellow Pager # [phone] signed by Daryl Arteaga MD at 03/14/2012 [...] really for treatment Recommendations communicated with GM3 newsroom intern. We will continue to follow. This plan was discussed and formulated with gastroenterology at [facility], Dr. Casiano. Please call with any questions. Bigg Robles, R1 Pager: [phone] Attending Attestation: I personally interviewed the patient, performed the relevant elements of the physical exami [facility], and formulated the assessment and plan with [...] She may follow-up wit h her local unarmed security officer or may follow up with me at [facility] if she wishes to consider di fferent evaluation or treatment. Gopal Casiano MD Global Account Managerbankman Department of Gastroenterology INTERVAL HISTORY: - NAEO [...] IMAGING Reviewed outside imaging with radiologist at [facility] and CT abd and pelvis [...] Labs Basename 03/14/12 0939 03/14/12 0610 03/14/12 0525 03/13/1234103/12/12200503/12/12 191 8 NA -- -- 139 143 [...] Becca Moncada MD General Surgery, R2 Pager: [phone] [facility] Staff I saw and evaluated the patient. I agree with the findings and the plan of care as jannie hair in the resident s note. Left foot warm and well perfused. Patient pain-free. Will repe at CTA to see if there has been any thrombus progression. No urgent need for surgery on left leg at this point. Mirela Samano M.D. [facility] Vascular Surgery [address] [place] [address], [address] [phone] Email: [email or web address] Irene Aguilera MD - 03/14/2012 [...] at OSH. 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 She also had leukocytosis to 45 with a left shift, anemia, and thrombocytosis (platelets to 759). Her abdominal exam was not acute and she remained hemodynamically stable. Transferre d to [facility] for possible thrombectomy, initiated heparin [...] were obscured by overlying bowel gas. The xda-or-uacooi left external iliac arteries appear patent with [...] transient arterial occlusion. Reported CT findings at [facility] are also concerning for diffuse intra-abdominal arterial [...] CARLOS A SALCIDO MD R2, General Surgery [facility] 03/13/2012 1:20 PM Current Facility-Administered Medications Medication Dose Route Frequency Provider Last Rate Last Dose aspirin tablet 325 mg 325 mg Oral DAILY Taylor Macias MD cefTRIAXone (aka ROCEPHIN) IV 1 g 1 g Intravenous Q24H Bibiana Adams, PA-C 1 g at 1 05/13/11 2301 dextrose IV 25 mL 25 mL Intravenous PRN Bibiana Kaiser Adams, PA-C esomeprazole (aka NEXIUM) IV 40 mg 40 mg Intravenous BID DARLING Jennings-Kaiser 40 mg at 03/13/12 0736 glucagon (aka GLUCAGEN) injection 1 mg 1 mg Intramuscular PRN Bibiana C Tiave, PA-C glucose chewable tablet 16 g 16 g Oral Q15MIN PRN Bibiana C Tiave, PA-C heparin bolus from continuous infusion (protocol) 2,800 Units 2,800 Units Intravenous NEEDED (BOLUS) Bibiana C Tiave, PA-C heparin bolus from continuous infusion (protocol) 5,600 Units 5,600 Units Intravenous NEEDED (BOLUS) Bibiana Kaiser Weberve, PA-C 5,600 Units at 03/13/12 0502 heparin in D5W IV infusion 25,000 units/250 mL (100 units/mL) 1-2,000 Units/hr Intrave nous CONTINUOUS Gayatri Crhistensen PA-C 15.5 mL/hr at 03/13/12 1300 1,550 Units/hr at 1300 insulin lispro (aka HUMALOG) injection 1-16 Units 1-16 Units Subcutaneous Q6H Bibiana Adams PA-C 1 Units at 03/13/12 0542 lactated ringers IV 75 mL/hr Intravenous CONTINUOUS DARLING Pantoja-C 75 mL/hr at 1 05/14/11 1300 75 mL/hr at 03/13/12 1300 menthol-zinc oxide (aka CALAZIME) topical paste Topical BID PRN Bibiana Adams PA-C morphine injection 4-8 mg 4-8 mg [...] LastCBG Intervention: Notified MD (Comment);Medication given (03/12/12 2306) CBC with diff last 72 hours (or [...] Becca Moncada MD General Surgery, R2 Pager: [phone] Vascular Staff I saw and evaluated the [...] at a later time. Mirela Samano M.D. [facility] Vascular Surgery [address] [place] [address], [address] [phone] Email: [email or web address] Richie Goodman MD - 06/2011 11:15 AM PSTI was present and rounded with the SAXOPHONE PLAYER today. I interviewed and examined the patient. I reviewed the history, as documented today. I agree with the SAXOPHONE PLAYER's assessmen t and plan. Pt is stable [...] #2 Procedures: none Access: RIJ (Insertion date 12/2) ABX: Zosyn and vanco (Day 2/?) 24hr events: Remains stable. Good UOP. Afebrile. Current meds: Rocephin nexium Heparin infusion LR 75 Morphine IV PRN zofran PRN Labs: [facility] reviewed Significant Results K 3.3 Mg 2.8 [...] visceral and aortic thrombus transfer red from [place] last night with concerns for ischemic bowel. [...] and celiac arteries who was transferred to [facility] for management o f vascular disease and possible bowel ischemia. No evidence of bowel ischemia, bowel thicken ing likely Crohn's flare. 1. Crohn's flare: GI consult. Consider transfer to medicine for crohn's management with [facility] following 2. Multivessel occlusions/thrombii: vascular [...] Blood cultures pending; as is vascular imaging . Trice Macias MD Plastic Surgery, R3 Diagnoses: 555.9B [...] Her abdominal exam does not reveal peritonitis. Vasc ular surgery recommended a heparin drip given her subtherapeutic INR. Hematology will be con sulted for her leukocytosis and declining platelet count in the setting of heparin therapy. Gastroenterology is making recommendations regarding acute management of her Crohn's disease . She will no longer require ICU care and she will transfer to the general medicine service. Jf Wiseman MD FACS wage hand Division of Trauma, Critical Care, and Acute Care Surgery [phone] documented in this e ncounter Plan of [...] | + +--------+ + + + | UA DIPSTICK ONLY | Routin | 03/19/2012 | [...] [facility] | [address] | [place] [address] | | | SERVICES, CORE | [address] [...] [facility] | [address] | [place] [address] | | | SERVICES, CORE | [address] | | | + + + + + INR (03/31/2012 3:58 AM PST) + +-------+ + + + | Component | Value | Ref Range | Performed | Pathologist | | | | | At | Signature | + +-------+ + + + | INR | 1.11 | 0.90 - 1.20 INR | [facility] | | | | | | [facility]ORATORY [...] | + + + + + | [facility] | [address] | [place] [address] | | | SERVICES, CORE | PARK [...] [facility] | [address] | [place] [address] | | | SERVICES, CORE | PARK [...] [facility] | [address] | [place] [address] | | | ARON, JANELL | KRISTEN [...] | | + +---------+ + + | [facility] DEPARTMENT OF | | | [...] | + + + + + | [facility] | [address] | [place] [address] | | | SERVICES, JANELL | PARK [...] [facility] | [address] | [place] [address] | | | SERVICES, CORE | PARK [...] [facility] | [address] | [place] [address] | | | SERVICES, CORE | PARK [...] | + + + + + | [facility] | [address] | [place] [address] | | | SERVICES, CORE | PARK [...] | + + + + + | [facility] | [address] | [place] [address] | | | SERVICES, CORE | KRISTEN [...] | + + + + + | [facility] | [address] | [place] [address] | | | SERVICES, CORE | PARK [...] [facility] | [address] | [place] [address] | | | SERVICES, CORE | PARK [...] [facility] | [address] | [place] [address] | | | SERVICES, JANELL | KRISTEN [...] + | [facility] | [address] | [place] [address] | | | [place] | | | [...] + | [facility] | [address] | [place] [address] | | | [place] | | | | + + + [...] + | [facility] | [address] | [place] [address] | | | [facility] | | | | + + + [...] | + + + + + | [facility] | [address] | [place] [address] | | | SERVICES, CORE | KRISTEN [...] [facility] | [address] | [place] [address] | | | SERVICES, CORE | PARK [...] (H) | 0.90 - 1.20 INR | [facility] | | | | | [...] | + + + + + | [facility] | [address] | [place] [address] | | | SERVICES, CORE | PARK [...] | + + + + + | [facility] | [address] | [place] [address] | | | SERVICES, CORE | KRISTEN [...] + + + + + | [facility] | [address] | [place] [address] | | | PATHOLOGY | [address] [...] | + + + + + | [facility] | [address] | [place] [address] | | | SERVICES, JANELL | KRISTEN [...] | + + + + + | [facility] | [address] | [place] [address] | | | SERVICES, CORE | KRISTEN [...] [facility] | [address] | [place], [place] | | | [facility] | [address] | [address] | | | TESTS | | | [...] [facility] | [address] | [place] [address] | | | SERVICES, CORE | KRISTEN [...] [facility] | [address] | [place] [address] | | | SERVICES, CORE | PARK [...] | + + + + + | [facility] | [address] | [place] [address] | | | SERVICES, CORE | KRISTEN [...] [facility] | [address] | [place], [place] | | | [facility] | [address] | [address] | | | TESTS | | | [...] [facility] | [address] | [place] [address] | | | SERVICES, CORE | KRISTEN [...] [facility] | [address] | [place] [address] | | | SERVICES, CORE | PARK [...] [facility] | [address] | [place] [address] | | | SERVICES, CORE | PARK [...] [facility] | [address] | [place] [address] | | | ARON, JANELL | [address] | | | + + + + + X-RAY PORTABLE CHEST 1 VIEW (03/28/2012 6:28 AM PST) + + + + + + | Component | Value | Ref Range | Performed | Pathologist | | | | | At | Signature | + + + + + + | X-RAY | STUDY: IA CHEST 1 VIEW | | | | [...] + + + + | PRODUCT | [id number] | | [facility] | | | UNIT [...] + + + + | BLOOD | 61302 | | [facility] | | | PRODUCT [...] + + + + + | [facility] | [address] | [place] [address] | | | PATHOLOGY | [address] [...] + + + + | PRODUCT | [id number] | | [facility] | | | UNIT [...] + + + + | BLOOD | 45289 | | [facility] | | | PRODUCT [...] OF | [address] | [place] [address] | | | PATHOLOGY | [address] [...] (H) | 60 - 99 mg/dL | [facility] - | | | GLUCOSE, [...] + + + | [facility] | [address] | [place], [place] | | | [facility] | [address] | [address] | | | TESTS | | | [...] | + + + + + | [facility] | [address] | [place] [address] | | | ARON, JANELL | KRISTEN [...] view image for the detailed interpretation from Zulu results. | CARDIOLOGY | + + + + + + + + | Performing | Address | City/State/Zipcode | Phone Number | | Organization | | | | + + + + + | [facility] | [address] | [place], [place] | | | CARDIOLOGY | [address] | [address] | | + + + + + [...] | + + + + + | [facility] | [address] | [place] [address] | | | SERVICES, CORE | KRISTEN [...] + + + + | PRODUCT | [id number] | | [facility] | | | UNIT [...] + + + + | BLOOD | 80520 | | [facility] | | | PRODUCT [...] DEPARTMENT OF | [address] | [place] [address] | | | PATHOLOGY | [address] [...] + + + + | PRODUCT | [id number] | | [facility] | | | UNIT [...] + + + + | BLOOD | 10394 | | [facility] | | | PRODUCT [...] | + + + + + | [facility] DEPARTMENT | [address] | [place] [address] | | | PATHOLOGY | [address] [...] | + + + + + | [facility] | [address] [facility] | [place] [address] | | | SERVICES, CORE | PARK [...] [facility] | [address] | [place] [address] | | | SERVICES, CORE | PARK [...] | + + + + + | [facility] | [address] | [place] [address] | | | SERVICES, CORE | [address] | | | + + + + + MAGNESIUM, PLASMA (03/28/2012 1:46 AM PST) + +---------+ + + + | Component | Value | Ref Range | Performed | Pathologist | | | | | At | Signature | + +---------+ + + + | MAGNESIUM,P | 1.5 (L) | 1.8 - 2.5 mg/dL | [facility] | | | LASMA | | | [...] [facility] | [address] | [place] [address] | | | SERVICES, CORE | PARK [...] [facility] | [address] | [place] [address] | | | SERVICES, | [address] [...] | + + + + + | [facility] | [address] | [place] [address] | | | SERVICES, | [address] [...] + + + + | PRODUCT | [id number] | | [facility] | | | UNIT [...] + + + + | BLOOD | 29183 | | [facility] | | | PRODUCT [...] | + + + + + | [facility] DEPARTMENT OF | [address] | [place] [address] | | | PATHOLOGY | [address] [...] + + + + | PRODUCT | [id number] | | [facility] | | | UNIT [...] + + + + | BLOOD | 62544 | | [facility] | | | PRODUCT [...] | + + + + + | [facility] DEPARTMENT | [address] | [place] [address] | | | PATHOLOGY | [address] | | | + + + + + HEMATOCRIT (03/28/2012 12:45 AM PST) + + + + + + | Component | Value | Ref Range | Performed | Pathologist | | | | | At | Signature | + + + + + + | HEMATOCRIT | 24.4 (L) | 36.0 - 46.0 % | [facility] | | | | | | LABORATORY [...] | + + + + + | [facility] | [address] | [place] [address] | | | SERVICES, CORE | KRISTEN [...] | + + + + + | [facility] | [address] | [place] [address] | | | SERVICES, CORE | KRISTEN [...] [facility] | [address] | [place] [address] | | | SERVICES, CORE | [address] [...] | + + + + + | [facility] | [address] | [place] [address] | | | JANELL SHARP | KRISTEN [...] [facility] | [address] | [place] [address] | | | SERVICES, CORE | KRISTEN [...] [facility] | [address] | [place] [address] | | | SERVICES, CORE | PARK [...] | + + + + + | [facility] | [address] | [place] [address] | | | SERVICES, CORE | KRISTEN [...] | + + + + + | [facility] | [address] | [place] [address] | | | SERVICES, CORE | KRISTEN [...] | + + + + + | [facility] | [address] | [place] [address] | | | SERVICES, CORE | PARK [...] [facility] | [address] | [place] [address] | | | SERVICES, CORE | KRISTEN [...] | + + + + + | [facility] | [address] | [place] [address] | | | SERVICES, CORE | PARK [...] | + + + + + | [facility] | [address] | [place] [address] | | | ARON, JAENLL | [address] | | | + [...] | + + + + + | [facility] | [address] [facility] | [place] [address] | | | SERVICES, CORE | KRISTEN [...] [facility] | [address] | [place] [address] | | | SERVICES, CORE | PARK [...] | + + + + + | [facility] | [address] | [place] [address] | | | SERVICES, CORE | KRISTEN [...] oral, | | | | | | [id number] hrs | | | | | | [...] | + + + + + | [facility] | [address] | [place] [address] | | | SERVICES, CORE | KRISTEN [...] | + + + + + | [facility] | [address] | [place] [address] | | | SERVICES, CORE | KRISTEN [...] | + + + + + | [facility] | [address] | [place] [address] | | | ARON, JANELL | [address] [...] | + + + + + | [facility] | [address] | [place] [address] | | | SERVICES, CORE | KRISTEN [...] | + + + + + | [facility] | [address] | [place] [address] | | | SERVICES, CORE | KRISTEN [...] | | | | Final | | [place] | | | | CULTURE RESULT:< 10,000 [...] + | [facility] | [address] | [place] [address] | | | [place] | | | | + + + [...] | + + + + + | [facility] | [address] | [place] [address] | | | SERVICES, CORE | PARK [...] + + + + + + | NON-CHARANAMALFONSO | Aniket (A) | None /hpf | [...] [facility] | [address] | [place] [address] | | | SERVICES, CORE | P[address] [...] | | LABORATORY | | | JANELL SAHRP | + + + + + + + + | Performing | Address | City/State/Zipcode | Phone Number | | Organization | | | | + + + + + | [facility] | [address] | [place] [address] | | | SERVICES, CORE | [address] | | | + + + + + CULTURE, BLOOD BACTI & YEAST [place] (03/23/2012 11:22 PM PST) + + + [...] | + + + + + | [facility] | [address] | [place] [address] | | | SERVICES, CORE | KRISTEN [...] view image for the detailed interpretation from Zulu results. | CARDIOLOGY | + + + + + + + + | Performing | Address | City/State/Zipcode | Phone Number | | Organization | | | | + + + + + | [facility] | [address] | [place], [place] | | | CARDIOLOGY | [address] | [address] | | + + + + + [...] | | + +---------+ + + | [facility] DEPARTMENT OF | | | [...] | + + + + + | [facility] | [address] | [place] [address] | | | ARON, JANELL | KRISTEN [...] [facility] | [address] | [place] [address] | | | SERVICES, CORE | PARK [...] | + + + + + | [facility] | [address] | [place] [address] | | | SERVICESJANELL | [address] [...] | + + + + + | [facility] | [address] | [place] [address] | | | SERVICES, CORE | PARK [...] [facility] | | | | | | [facility] | | | | | | [place] [address] | | | | | | [phone]. | | | | | | keith, Kaitlin Lau, | | | | | | , Lab. Director | | | | + + + + + + + + | Specimen | + + | Urine - Urine | + + + + + + + | Performing | Address | City/State/[facility] Cent[facility]ode | Phone Number | | Organization | | | | + + + + + | [facility] | [address] | [place], [place] | | | [facility] | | [address] | | + + + + + [...] | + + + + + | [facility] | [address] | [place] [address] | | | SERVICES, CORE | KRISTEN [...] Libby | | | | | | Fusmarilia, M.D. I have | | | | [...] [facility] | [address] | [place] [address] | | | SERVICES, JANELL | [address] | | | + + + + + CULTURE, BLOOD BACTI & YEAST [facility] (03/22/2012 7:08 PM PST) + [...] | + + + + + | [facility] | [address] | [place] [address] | | | SERVICES, JANELL | KRISTEN [...] | | | | | XIN GARZON ([id number]) | | | | | | on 03/22/2012 4:25:06 PM | | | | + + + + + + + + | Specimen | + + | | + + + + + | Narrative | Performed At | + + + | Please click | [facility] DEPT OF | | on view image for the detailed interpretation from Zulu results. | CARDIOLOGY | + + + + + + + + | Performing | Address | City/State/Zipcode | Phone Number | | Organization | | | | + + + + + | [facility] | [address] | [place], [place] | | | CARDIOLOGY | [address] | [address] | | + + + + + [...] DAVIDAM | [address] | [place], [place] | | | [facility]ORE OF CARE | [facility] | [address] | | | TESTS | | | [...] (H) | 60 - 99 mg/dL | [facility] - | | | GLUCOSE, [...] SANDERS | [address] | [place], [place] | | | [facility] OF CARE | [address] | [address] | | | TESTS | | | [...] | + + + + + | [facility] | [address] | [place] [address] | | | SERVICES, CORE | KRISTEN [...] [facility] GARDNER | [address] | [place] [address] | | | JANELL SHARP | [address] [...] | + + + + + | [facility] | [address] | [place] [address] | | | SERVICES, JANELL | KRISTEN [...] [facility] | [address] | [place] [address] | | | SERVICES, CORE | PARK [...] | + + + + + | [facility] | [address] | [place] [address] | | | SERVICES, CORE | KRISTEN [...] [facility] | [address] | [place], [place] | | | OSCAR POINT OF CARE | [address] | [address] | | | TESTS | | | [...] | + + + + + | [facility] | [address] | [place] [address] | | | SERVICES, CORE | KRISTEN [...] [facility] | [address] | [place], [place] | | | [facility] [place] | [address] | [address] | | | TESTS | | | [...] view image for the detailed interpretation from Zulu results. | CARDIOLOGY | + + + + + + + + | Performing | Address | City/State/Zipcode | Phone Number | | Organization | | | | + + + + + | [facility] | [address] | [place], [place] | | | CARDIOLOGY | [address] | [address] | | + + + + + [...] ART[facility] SANDERS | [address] | [place], [place] | | | [facility] [place] [facility] | [address] | [address] | | | TESTS | | | [...] | + + + + + | [facility] | [address] | [place] [address] | | | JANELL SHARP | KRISTEN [...] [facility] | [address] | [place] [address] | | | SERVICES, CORE | KRISTEN [...] | + + + + + | [facility] | [address] | [place] [address] | | | SERVICES, CORE | KRISTEN [...] + + + | [facility] | [address] | [place] [address] | | | SERVICES, JANELL | KRISTEN [...] | + + + + + | [facility] | [address] | [place] [address] | | | SERVICES, CORE | [address] | | | + + + + + 12 LEAD ECG (03/21/2012 1:28 AM PST) + + + + + + | Component | Value | Ref Range | Performed | Pathologist | | | | | At | Signature | + + + + + + | VENTRICULAR | 107 | BPM | [facility] | | | RATE | | [...] GARCIA | | | | | | (9461) on 03/22/2012 | | | | | | 12:47:28 PM | | | | + + + + + + + + | Specimen | + + | | + + + + + | Narrative | Performed At | + + + | Please click | [facility] | | on view image for the detailed interpretation from Zulu results. | CARDIOLOGY | + + + + + + + + | Performing | Address | City/State/Zipcode | Phone Number | | Organization | | | | + + + + + | [facility] | [address] | [place], [place] | | | CARDIOLOGY | [address] | [address] | | + + + + + [...] | | | | | | Libby Fuss, | | | | | | M.DGhulamAuthor: [...] [facility] | [address] | [place] [address] | | | SERVICES, CORE | PARK [...] | + + + + + | [facility] | [address] | [place] [address] | | | SERVICES, CORE | KRISTEN [...] 98 | 60 - 99 mg/dL | [facility] - | | | GLUCOSE, [...] SANDERS | [address] | [place], [place] | | | [facility] | [address] | [address] | | | TESTS | | | [...] view image for the detailed interpretation from Zulu results. | CARDIOLOGY | + + + + + + + + | Performing | Address | City/State/Zipcode | Phone Number | | Organization | | | | + + + + + | [facility] | [address] | [place], [place] | | | CARDIOLOGY | [address] | [address] | | + + + + + [...] - MAR[facility] | [address] | [place], [place] | | | [facility] OF CARE | [facility] | [address] | | | TESTS | | | [...] (H) | 60 - 99 mg/dL | [facility] - | | | GLUCOSE, [...] SANDERS | [address] | [place], [place] | | | [facility] CARE | [address] | [address] | | | TESTS | | | | + + + + + X-RAY PORTABLE CHEST 1 VIEW (03/20/2012 10:13 AM PST) + + + + + + | Component | Value | Ref Range | Performed | Pathologist | | | | | At | Signature | + + + + + + | X-RAY | STUDY: IA CHEST 1 VIEW | | | | [...] + + | Final WBC report. | [facility] | | | LABORATORY | | | ARON, CORE | + + + + + + + + | Performing | Address | City/State/Zipcode | Phone Number | | Organization | | | | + + + + + | [facility] | [address] | [place] [address] | | | SERVICES, CORE | [address] [...] | + + + + + | [facility] | [address] | [place] [address] | | | SERVICES, CORE | PARK [...] (H) | 0.90 - 1.20 INR | [facility] | | | | | | LABORATORY [...] [facility] | [address] | [place] [address] | | | SERVICES, CORE | PARK [...] | + + + + + | [facility] | [address] | [place] [address] | | | SERVICES, CORE | KRISTEN [...] [facility] | [address] | [place], [place] | | | [facility] CARE | [address] | [address] | | | TESTS | | | [...] + | [facility] | [address] [facility] [address] | [place], [place] | | | [facility] [place] [facility] | [address] | [address] | | | TESTS | | | [...] No | | | | | 03/21/2012t 001. | growth to date. | | | + + + + + + + + | Specimen | + + | Blood - Hand - left | + + + + + + + | Performing | Address | City/State/Zipcode | Phone Number | | Organization | | | | + + + + + | [facility] | [address] | [place] [address] | | | SERVICES, CORE | KRISTEN [...] | + + + + + | [facility] | [address] | [place] [address] | | | SERVICES, CORE | KRISTEN [...] (H) | 60 - 99 mg/dL | [facility] - | | | GLUCOSE, [...] SANDERS | [address] | [place], [place] | | | [facility]AR POINT OF CARE | [address] | [address] | | | TESTS | | | [...] + + + | Please click | [facility] | | on view image for the detailed interpretation from Zulu results. | CARDIOLOGY | + + + + + + + + | Performing | Address | City/State/Zipcode | Phone Number | | Organization | | | | + + + + + | [facility] | [address] | [place], [place] | | | CARDIOLOGY | [address] | [address] | | + + + + + [...] MAR[facility] | [address] | [place], [place] | | | [facility]SC[facility] POINT OF CARE | [address] | [address] | | | TESTS | | | [...] SANDERS | [address] | [place], [place] | | | [facility] | [address] | [address] | | | TESTS | | | [...] | + + + + + | [facility] | [address] [facility] | [place] [address] | | | SERVICES, CORE | KRISTEN [...] [facility] GARDNER | [address] | [place] [address] | | | SERVICES, CORE | P[address] [...] | + + + + + | [facility] | [address] | [place] [address] | | | SERVICES, CORE | KRISTEN [...] [facility] | [address] | [place] [address] | | | SERVICES, JANELL | KRISTEN [...] | | | | Final | | [place] | | | | CULTURE RESULT:No growth [...] + | [facility] - | [address] | [place] [address] | | | [place] | | | [...] [facility] | [address] | [place] [address] | | | SERVICES, CORE | PARK [...] [facility] | [address] | [place] [address] | | | SERVICES, JANELL | PARK [...] + + | [facility] | [address] [facility] | [place] [address] | | | SERVICES, CORE | [address] | | | + + + + + CULTURE, BLOOD BACTI & YEAST [facility] (03/19/2012 1:10 AM PST) + [...] | + + + + + | [facility] | [address] | [place] [address] | | | SERVICES, CORE | KRISTEN [...] | + + + + + | [facility] | [address] | [place] [address] | | | SERVICES, JANELL | KRISTEN [...] SANDERS | [address] | [place], [place] | | | OSCAR POINT OF CARE | [address] | [address] | | | TESTS | | | [...] | + + + + + | [facility] | [address] | [place] [address] | | | ARON, CORE | KRISTEN [...] + | [facility] | [address] | [place], [place] | | | [facility] | [facility] | [address] | | | TESTS | | | [...] [facility] | [address] | [place] [address] | | | SERVICES, CORE | PARK [...] | + + + + + | [facility] | [address] | [place] [address] | | | SERVICES, CORE | KRISTEN [...] [facility] | [address] | [place], [place] | | | [place] [facility] [place] | [address] | [address] | | | TESTS | | | | + + + + + OPERATION RECORD (03/18/2012 11:22 AM PST) + + | Transcriptions | + + | Mirela Salgado MD - 03/18/2012 8:38 AM RUST Date: 03/17/2012ttending | | Surgeon: Mirela Salgado M.D.Jewel Oliving Machine Operator(s): Sandoval | | Bennett Galvez M.D.Preoperative Diagnosis(es):Embolus, [...] | | tolerated the procedure well.MIRELA SALGADO, [facility] / [id number] / | | [id number] / [id number] / T: 03/17/2012 | |was no pulse. 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 | | | |GLM / HS | |[id number] / [id number] / [id number] / | | | | | + [...] [facility] | [address] | [place] [address] | | | SERVICES, CORE | [address] [...] [facility] | [address] | [place] [address] | | | SERVICES, CORE | PARK [...] | + + + + + | [facility] | [address] | [place] [address] | | | SERVICES, CORE | [address] [...] | + + + + + | [facility] | [address] [facility] | [place] [address] | | | SERVICES, CORE | KRISTEN [...] | + + + + + | [facility] | [address] | [place] [address] | | | SERVICES, CORE | KRISTEN [...] | + + + + + | [facility] | [address] | [place] [address] | | | SERVICES, JANELL | PARK [...] + + | [facility] | [address] [facility] [address] | [place] [address] | | | JANELL SHARP | KRISTEN [...] [facility] | [address] | [place], [place] | | | H[place], POINT OF CARE | [address] | [address] | | | TESTS | | | [...] [facility] | [address] | [place], [place] | | | [place] [facility] [facility] [place] | [address] | [address] | | | TESTS | | | [...] SANDERS | [address] | [place], [place] | | | [facility] OF CARE | [address] | [address] | | | TESTS | | | [...] | + + + + + | [facility] | [address] | [place] [address] | | | SERVICES, CORE | KRISTEN [...] | + + + + + | [facility] | [address] | [place] [address] | | | ARON, CORE | KRISTEN [...] | + + + + + | [facility] | [address] [facility] | [place] [address] | | | SERVICES, JANELL | KRISTEN [...] | + + + + + | [facility] | [address] | [place] [address] | | | SERVICES, CORE | KRISTEN [...] (H) | 60 - 99 mg/dL | [facility] - | | | GLUCOSE, [...] + + + | [facility] | [address] | [place], [place] | | | [facility] [place] [facility] | [address] | [address] | | | TESTS | | | [...] [facility] | [address] | [place] [address] | | | SERVICES, | [address] [...] [facility] | [address] | [place] [address] | | | SERVICES, | [address] [...] | + + + + + | [facility] | [address] | [place] [address] | | | SERVICES, CORE | [address] [...] (H) | 60 - 99 mg/dL | [facility] - | | | GLUCOSE, | | [...] SANDERS | [address] | [place], [place] | | | KAILEY MOORE | [facility] | [address] | | | TESTS | | | [...] | | + +---------+ + + | [facility] DEPARTMENT OF | | | [...] (H) | 60 - 99 mg/dL | [facility] - | | | GLUCOSE, [...] SANDERS | [address] | [place], [place] | | | PEPE MOORE OF CARE | [facility] | [address] | | | TESTS | | | [...] + | [facility] | [address] | [place], [place] | | | [place] [facility] [place] | [address] | [address] | | | TESTS | | | [...] | + + + + + | [facility] | [address] [facility] | [place] [address] | | | SERVICES, CORE | KRISTEN [...] | [facility] | [address] | [place], [place] | | | [facility] [place] [facility] | [address] | [address] | | | TESTS | | | [...] [facility] | [address] | [place] [address] | | | SERVICES, CORE | KRISTEN [...] [facility] | [address] | [place] [address] | | | SERVICES, CORE | [address] [...] [facility] | [address] | [place] [address] | | | SERVICES, CORE | [address]ARK [...] [facility] | [address] | [place] [address] | | | JANELL SHARP | [address] [...] [facility] | [address] | [place], [place] | | | PE[facility] MOORE OF CARE | [facility] | [address] | | | TESTS | | | [...] (H) | 60 - 99 mg/dL | [facility] - | | | GLUCOSE, [...] + + + | [facility] | [address] | [place], [place] | | | [facility] | [address] | [address] | | | TESTS | | | [...] clinically | | | | | | significantstenosis.Estefayn | | | | | | l [...] + + | Performing | Address | City/State/[facility] Cent[facility] | Phone Number | | Organization | | | | + +---------+ + + | [facility] DEPARTMENT OF | | | [...] Kirstie | | | | | | [place] | | | | + + + [...] [facility] | [address] | [place], [place] | | | PE[facility] MOORE OF CARE | [address] | [address] | | | TESTS | | | [...] SANDERS | [address] | [place], [place] | | | [place] [facility] [place] | [facility] | [address] | | | TESTS | | | [...] + + | Performing | Address | City/State/[facility] Centercode | Phone Number | | Organization | | | | + + + + + | [facility] | [address] | [place] [address] | | | SPECIAL ARON | KRISTEN [...] [facility] | [address] | [place] [address] | | | SERVICES, SPECIAL | P[address] [...] [facility] | [address] | [place] [address] | | | SERVICES, SPECIAL | [address] [...] | + + + + + | [facility] | [address] | [place] [address] | | | SERVICES, SPECIAL | KRISTEN [...] | + + + + + | [facility] | [address] | [place] [address] | | | SERVICES, CORE | KRISTEN [...] | + + + + + | [facility] | [address] [facility] | [place] [address] | | | SERVICES, CORE | [address] [...] [facility] | [address] | [place] [address] | | | SERVICES, CORE [...] | + + + + + | [facility] | [address] | [place] [address] | | | SERVICES, CORE | KRISTEN [...] SANDERS | [address] | [place], [place] | | | [place] | [facility] | [address] | | | TESTS | | | [...] | + + + + + | [facility] | [address] | [place] [address] | | | SERVICES, JANELL | [address] [...] [facility] | [address] | [place], [place] | | | [facility] CARE | [address] | [address] | | | TESTS | | | [...] (H) | 60 - 99 mg/dL | [facility] - | | | GLUCOSE, [...] SANDERS | [address] | [place], [place] | | | [facility] CARE | [address] | [address] | | | TESTS | | | [...] HOOK, | | | | | | MRafael. I have personally | | | | [...] [facility] | [address] | [place], [place] | | | PE[facility] MOORE OF CARE | [facility] | [address] | | | TESTS | | | [...] + + + + | PRODUCT | [id number] | | [facility] | | | UNIT [...] + + + + | BLOOD | 35456 | | [facility] | | | PRODUCT [...] | + + + + + | [facility] DEPARTMENT OF | [address] | [place] [address] | | | PATHOLOGY | [address] [...] + + + + | PRODUCT | [id number] | | [facility] | | | UNIT [...] + + + + | BLOOD | 03321 | | [facility] | | | PRODUCT [...] [facility] | [address] | [place] [address] | | | PATHOLOGY | [address] [...] | + + + + + | [facility] | [address] | [place] [address] | | | SERVICES, CORE | KRISTEN [...] (H) | 60 - 99 mg/dL | [facility] - | | | GLUCOSE, [...] + + + | [facility] | [address] | [place], [place] | | | [place] [facility] [facility] [place] | [address] | [address] | | | TESTS | | | [...] [facility] | [address] | [place], [place] | | | [facility] CARE | [address] | [address] | | | TESTS | | | [...] | + + + + + | [facility] | [address] | [place] [address] | | | SERVICES, CORE | PARK [...] | + + + + + | [facility] | [address] | [place] [address] | | | SERVICES, CORE | KRISTEN [...] | + + + + + | [facility] | [address] | [place] [address] | | | SERVICES, CORE | KRISTEN [...] if | | | | | | [id number] >400: | | | | | | [...] | + + + + + | [facility] AIR[facility] - | [address] | [place] [address] | | | [place] | | | [...] | + + + + + | [facility] | [address] | [place] [address] | | | SERVICES, CORE | [address] [...] [facility] | [address] | [place] [address] | | | SERVICES, CORE | PARK [...] | + + + + + | [facility] | [address] | [place] [address] | | | SERVICES, CORE | KRISTEN [...] + | [facility] - | [address] | [place] [address] | | | [place] | | | [...] [facility] | [address] | [place], [place] | | | [facility] | [address] | [address] | | | TESTS | | | [...] + + | [facility] | [address] [facility] | [place] [address] | | | SERVICES, CORE | [address] [...] | + + + + + | [facility] | [address] | [place] [address] | | | SERVICES, CORE | KRISTEN [...] 98 | 60 - 99 mg/dL | [facility] - | | | GLUCOSE, [...] SANDERS | [address] | [place], [place] | | | [facility] POINT OF CARE | [address] | [address] | | | TESTS | | | [...] | + + + + + | [facility] | [address] | [place] [address] | | | SERVICES, CORE | KRISTEN [...] gas. | | | | | | [id number]-[id number] left | | | | | | [...] Davina | | | | | | Jeff Davis | | | | + + + + + + + + | Specimen | + + | | + + + +---------+ + + | Performing | Address | City/State/Zipcode | Phone Number | | Organization | | | | + +---------+ + + | [facility] DEPARTMENT OF | | | [...] [facility] | [address] | [place], [place] | | | [facility] POINT OF CARE | [address] | [address] | | | TESTS | | | [...] % | [facility] | | | | [facility],[address] | | [facility] | | | | Jarett Card, [facility] [place] | | [facility] - [facility] | | | | [phone] | | | | | | [phone].[employer]. | | | | | | Kaitlin [...] [facility] | [address] | [place], [place] | | | UNIV PTH - [facility] | | [address] | | + + + + + [...] | + + + + + | [facility] | [address] | [place] [address] | | | SERVICES, CORE | PARK [...] [facility] | [address] | [place] [address] | | | JANELL SHARP | KRISTEN [...] (H) | 60 - 99 mg/dL | [facility] - | | | GLUCOSE, [...] [facility] | [address] | [place], [place] | | | [facility] OF CARE | [address] | [address] | | | TESTS | | | [...] [facility] | [address] | [place] [address] | | | SERVICES, CORE | PARK [...] | + + + + + | [facility] | [address] | [place] [address] | | | SERVICES, CORE | KRISTEN [...] [facility] | [address] | [place], [place] | | | PE[facility] MOORE OF CARE | [address] | [address] | | | TESTS | | | [...] [facility] | [address] | [place] [address] | | | JANELL SHARP | KRISTEN [...] [facility] | [address] | [place] [address] | | | SERVICES, CORE | PARK [...] | + + + + + | [facility] | [address] | [place] [address] | | | JANELL SHARP | PARK [...] | + + + + + | [facility] | [address] | [place] [address] | | | SERVICES, CORE | [address] | | | + + + + + MAGNESIUM, PLASMA (03/13/2012 3:42 AM PST) + +---------+ + + + | Component | Value | Ref Range | Performed | Pathologist | | | | | At | Signature | + +---------+ + + + | MAGNESIUM,P | 2.8 (H) | 1.8 - 2.5 mg/dL | [facility] | | | [facility] | | | [...] | + + + + + | [facility] | [address] | [place] [address] | | | SERVICES, CORE | PARK [...] [facility] | [address] | [place] [address] | | | SERVICES, CORE | PARK [...] | | | | Final | | [place] | | | | CULTURE RESULT:No growth [...] | + + + + + | [facility] | [address] | [place] [address] | | | [place] | | | | + + + [...] | | | Final CULTURE | | [place] | | | | RESULT:Salmonella, | | [...] days. | [facility] - | | | [place] | + + + + + + + + | Performing | Address | City/State/Zipcode | Phone Number | | Organization | | | | + + + + + | [facility] | [address] | [place] [address] | | | [facility] | | | | + + + [...] | + + + + + | [facility] | [address] | [place] [address] | | | SERVICES, JANELL | KRISTEN [...] [facility] | [address] | [place], [place] | | | [facility] | [address] | [address] | | | TESTS | | | [...] view image for the detailed interpretation from [facility] results. | CARDIOLOGY | + + + + + + + + | Performing | Address | City/State/Zipcode | Phone Number | | Organization | | | | + + + + + | [facility] | [address] | [place], [place] | | | CARDIOLOGY | [address] | [address] | | + + + + + [...] | | + +---------+ + + | [facility] DEPARTMENT OF | | | [...] + | [facility] | [address] | [place] [address] | | | SERVICES, CORE | PARK [...] | + + + + + | [facility] | [address] | [place] [address] | | | SERVICES, CORE | PARK [...] | + + + + + | [facility] | [address] | [place] [address] | | | SERVICES, CORE | KRISTEN [...] | + + + + + | [facility] | [address] | [place] [address] | | | JANELL SHARP | KRISTEN [...] (H) | 60 - 99 mg/dL | [facility] - | | | GLUCOSE, [...] [facility] | [address] | [place], [place] | | | [facility] | [address] | [address] | | | TESTS | | | [...] [facility] | [address] | [place] [address] | | | SERVICES, CORE | PARK [...] [facility] | [address] | [place] [address] | | | SERVICES, CORE | PARK [...] | + + + + + | [facility] | [address] | [place] [address] | | | SERVICES, | [address] [...] [facility] | [address] | [place] [address] | | | SERVICES, | [address] [...] [facility] | [address] | [place] [address] | | | SERVICES, JANELL | KRISTEN [...] [facility] | [address] | [place] [address] | | | SERVICES, CORE | PARK [...] | + + + + + | [facility] | [address] | [place] [address] | | | SERVICES, CORE | KRISTEN [...] | + + | [facility] - 03/28/2012 2:29 PM PST | + + ORDERS OTHER (03/12/2012 12:00 AM PST) + + + | Narrative | Performed At | + + + | | | | | | + + + + + | Procedure Note | + + | [facility] - 03/28/2012 2:29 PM PST | [...] | oral, DAILY, First dose on Tue 9:35 | | | | | 03/13/12 [...] | | | | First dose on [facility] 03/30/12 at | | | | [...] | | | | | on [place] 12/6/12 at 2100 | | | | | [...] | | | | First dose on [facility] 03/23/12 at | | | | [...] | | infusion 8 mg/hr (rounded to | 12 3:20 | | | | | mL/hr), intravenous, CONTINUOUS, | | PM PST | | | | | Starting Tu03/28/12 at 0400, | | | | | [...] | | | dose, First dose on [facility] 03/30/12 | | | | | [...] | mL/hr | | | (PF) (aka ILA-CORTSHAHAB) injection | | 12 8:36 | | [...] | | | Hours, ONCE, 1 dose, [facility] 03/16/12 | | | | | [...] | | | | | 1 dose, [facility] 03/21/12 at 1515 | | PM PST [...] | +---+---+ + +---------+ +--------+--------+---+ | LORazepam (aksachi ATIVAN) | New Bag | 03/28/20 | [...] | | | | | 0530, Until 03/28/12 at 1111, | | | | | [...] | | | | | 1115, Until [facility] 03/30/12 at 1055, | | | [...] | +---+---+ + +-------+ +------+---+---+ | LORazepam (naaa ATIVAN) tablet 1 | Given | 03/20/20 [...] 6:43 | | | | | dose, 03/21/12 at 1900 | | PM PST [...] | | | | | 0840, Until [facility] 03/30/12 at 1057, | | | [...] 1 packet | | | | (aka NIELSA-PHOS, PHOS-NAK) | | 12 5:36 | | [...] | 20 mEq | | | | CAROL-KENISHA) packet 20 mEq 20 mEq, | | [...] | | | oral, ONCE, 1 dose, [facility] 03/30/12 | | PM PST | | | | | at 1100 | | | | | | + +-------+ +--------+---+---+ +---+---+ | | | +---+---+ + +-------+ +--------+---+---+ | potassium chloride (aka | Given | 03/17/20 | 40 mEq | | | | KLOR-CON) packet 40 mEq 40 mEq, | | 12 6:23 | | | | | oral, ONCE, 1 dose, 03/17/12 | | PM PST | | [...] | | | | | NEEDED, Starting Tue03/13/12 at | | | | | | | 0637, Until Tue03/14/12 at 1555, | | | | | [...] | | | | | NEEDED, Starting [facility] 03/16/12 at | | | | [...] | | + +---+ | propofol (jenifer ENCISO) | | | injection 1 dose, Starting [...] | | | | First dose on [facility] 03/30/12 at | | PM PST [...] 12:20 | | | | | dose, [facility] 03/21/12 at 1200 | | PM PST [...] | | | | | modification) on [facility] 03/23/12 at | | | | [...]
--- OUTSIDE RECORDS SUMMARY | ~2019-03-09 | XMS | Encounter Summary ---
Demographics + + + | Address | [address] | | | [place] [address] | + + + | Home Phone | | + + + | Preferred Language | Unknown | + + + | Marital Status | | + + + | Restoration Affiliation | Unknown | + + + | Race | Unknown | + + + | Ethnic Group | Unknown | + + + Author + + + | Author | [facility] | | | and [place] | + + + | Organization | [facility] | | | [...] Team Providers + +------+ + | Care Drier And Evaporator Operator Name | Role | Phone | + +------+ + PCP | Unavailable | + +------+ + Encounter Details +--------+ + + + + | Date | Type | Department | Care Team | Description | +--------+ + + + + | 02/11/ | Hospital | [facility] | Veena Tobar, | | | 2017 - | Encounter | [facility] | MD [address] | | | | | CARE FLOOR [address] | [place] [address] | | | 02/15/ | | [address] | [phone] | | | 2017 | | [place], [place] | | | | | | [address] | | | | | | [phone] | | | +--------+ + + + [...] Date of Service: 02/15/17 1029 Status: Signed Car Driver: Aguila Bernard DO (Physician) [facility] Service: Hospitalist Discharge Summary Date of [...] levofloxacin + IV fluid. Cultures obtained at [facility] showed E coli s usceptible to levofloxacin. [...] Status: DNR/DNI Follow up: Alireza Krishna MD [address], [address] [facility] [address] Enrique Bocanegra MD [address] [place] [id number] Medication List START taking these medications [...] Progress Note by Gayatri Carrasquillo RN at 02/15/171246 Author: Gayatri Carrasquillo RN Service: (none) Author Type: Registered Nurse Filed: 02/15/171246 Date of Service: 02/15/171246 Status: Signed Car Driver: Gayatri J. Newlun, RN (Registered Nurse) Patient d/c instructions reviewed with patient. Script faxed to [facility] in [place] per pt request. Awaiting [facility] to meet with patient prior to d/c. Spouse to provide trans portation. Gayatri Carrasquillo RN ongenaro islas Transaction, Provider Unknown - 02/15/2017 11:03 AM PST Case Management by Morgan Richards RN at 02/15/17 1103 Author: Morgan Richards RN Service: (none) Author Type: Registered Nurse Filed: 02/15/17 1108 Date of Service: 02/15/17 110 Status: Signed Car Driver: Morgan Richards RN (Registered Nurse) 02/15/17 1100 Discharge Planning Evaluation Admitting Diagnosis Sepsis due to UTI Anticipated Disposition Facility Type Home;Home infusion Medicare Important Message (KAMRYN) Given Home Infusion & Tube/Enteral Feedings [facility] Pt. Signed KAMRYN, I notified Anthony (spouse) about discharge and he will transport. Rhianna from [facility] has been notified and will be here for discharge. ongenaro tsangon Transaction, Provider Unknown - 02/15/2017 8:09 AM PST Therapy Progress Note by Giulia Albert PT at 02/15/17 0809 Author: Giulia Albert PT Service: (none) Author Type: Physical Therapist Filed: 02/15/17 1212 Date of Service: 02/15/17 0809 Status: Addendum Car Driver: Giulia Albert PT (Physical Therapist) Related Notes: [...] wheeled (bedside commode) Prior Function Level of [place] Independent with functional mobility;Independent with ADLs;Assist wi [...] Response to Education: stated understanding Low - 14870 Moderate - 04539 High - 91886 History no personal factors &/or comorbidities Examination 1-2 elements Clinical Presentation stable Clinical Decision Making Complexity: Low 38818 Giulia Albert, PT 02/15/2017 12:11 PM Erin Roca DO - 02/15/2017 6:38 AM PSTFormatting of this note might be different from the briana ginal. Progress Notes by Erin Turner DO at 02/15/17637 Author: Erin Truner DO Service: (none) Author Type: Physician Filed: 02/15/1732 Date of Service: 02/15/17637 Status: Signed Car Driver: Erin Turner DO (Physician) [facility] Service: Infectious Disease Progress Note Hospital [...] presented to the emergency d epartment at [facility] in [place]. Workup there did show significant pyuria, and [...] Infusions sodium chloride (IV) 110 mL/hr at 02/14/170 TPN ADULT 50 mL/hr at 02/14/17 2143 [...] >60 02/15/2017 Microbiology: Urine culture collected at [facility] has greater than 100,000 colo nies of Escherichia coli which is susceptible to levofloxacin. PROBLEM LIST Principal Problem: Sepsis(995.91) due to UTI Active Problems: Crohn's disease (HCC) GERD (gastroesophageal reflux disease) HTN (hypertension) Chronic anticoagulation Hypertension Current chronic use of systemic steroids Neuropathy Encephalopathy in sepsis Immunosuppressed status ([facility]) ASSESSMENT & PLAN Sepsis(995.91) due to [...] levofloxacin day #5 of 14. Crohn's disease (HCC) (04/12/2014) The patient has [...] Code Status: DNR/DNI ERIN TURNER DO 02/15/[address] , Provider Unknown - 02/14/2017 3:56 PM PST Case Management by Morgan Richards RN at 02/14/17 5756 Author: Morgan Richards RN Service: (none) Author Type: Registered Nurse Filed: 02/14/17 8067 Date of Service: 02/14/17 1556 Status: Signed Car Driver: Morgan Richards RN (Registered Nurse) 02/14/17 1500 Discharge Planning Evaluation Admitting Diagnosis Sepsis due to UTI Anticipated Disposition Facility Type Home;Home infusion Home Infusion & Tube/Enteral Feedings [facility] I spoke with Rhianna from [facility] to follow-up on Pt. Pt. was previously established wit [facility] in [place]. Aguila Jackson DO - 02/14/2017 3:38 PM PSTFormatting of this note might be different from the briana ginal. Progress Notes by Aguila Bernard DO at 02/14/17 1538 Author: Aguila Bernard DO Service: Hospitalist Author Type: Physician Filed: 02/14/17 1547 Date of Service: 02/14/17 1538 Status: Signed Car Driver: Aguila Bernard DO (Physician) PROGRESS NOTE 02/14/2017 [...] (none) Author Type: Physical Therapist Filed: 02/14/17 1531 Date of Service: 02/14/17 1530 Status: Signed Car Driver: Yusra Oconnor PT (Physical Therapist) 02/14/17 1530 PT Last Visit PT Received On 02/14/17 [...] Date of Service: 02/14/17 1146 Status: Signed Car Driver: Yusra Oconnor PT (Physical Therapist) 02/14/17 1146 PT Last Visit PT Received On 02/14/17 Reason for Treatment Deconditioning (sepsis) Requires PT Follow Up Unavailable Other Comments Comments INSTRUCTOR NURSE present administerring bed bath; RN requests PT return ~1500 as that will be w hen pt has next dose of IV pain meds. PT will attempt to f/u later for eval as census permi ts. onversion Transaction , Provider Unknown - 02/14/2017 8:31 AM PST Pharmacy Note by Latha Hall RPH at 02/14/17830 Author: Latha Hall RPH Service: Pharmacy Author Type: Pharmacist Filed: 02/14/17830 Date of Service: 02/14/17830 Status: Signed Car Driver: Latha Hall RPH (Pharmacist) TPN notes: Potassium [...] this note might be different from the birana humble. Progress Notes by Erin Turner DO at 02/14/17641 Author: Erin Turner DO Service: (none) Author Type: Physician Filed: 02/14/17824 Date of Service: 02/14/17641 Status: Signed Car Driver: Erin Turner DO (Physician) [facility] Service: Infectious Disease Progress Note Hospital [...] presented to the emergency d epartment at [facility] in [place]. Workup there did show significant pyuria, and [...] pain all over, no significant change since . She denies any nausea or vomiting. [...] 0542 TPN ADULT 50 mL/hr at 02/13/172037 PRN Medications acetaminophen OR acetaminophen, dextrose, magnesium [...] >60 02/14/2017 Microbiology: Urine culture collected at [facility] has greater than 100,000 colo nies of a lactose fermenting gram-negative rods, further identification and susceptibility p ending. No blood cultures were sent. PROBLEM LIST Principal Problem: Sepsis(995.91) due to UTI Active Problems: Crohn's disease ([facility]) GERD (gastroesophageal reflux disease) HTN (hypertension) Chronic anticoagulation Hypertension Current chronic use of systemic steroids Neuropathy Encephalopathy in sepsis Immunosuppressed status ([facility]) ASSESSMENT & PLAN Sepsis(995.91) due to UTI / Immunosuppressed status (07/19/2014) The patient presents with sepsis in the setting of immunosuppression, with workup thus fa r most suggestive of urinary tract infection. The patient has had improving white blood cell count and resolution of fevers with levofloxacin. Await final urine culture results from [facility]. Unfortunately, no blood cultures were sent, therefore will need surveill ance blood cultures drawn from her [facility] 1-2 weeks after completing her antibiotic therap y. Crohn's disease ([facility]) (04/12/2014) The patient has recently been treated with Humira, prednisone, and tincture of opium. Encephalopathy in sepsis (02/11/2017) Improving, will continue to monitor. Code Status: DNR/DNI ERIN TURNER DO 02/14/2017 onversion Transaction , Provider Unknown - 02/14/2017 5:06 AM PST Progress Notes by Tanika Alaniz RN at 02/14/17 2378 Author: Tanika Alaniz RN Service: (none) Author Type: Registered Nurse Filed: 02/14/17 4949 Date of Service: 02/14/17 765 Status: Signed Car Driver: Tanika Alaniz RN (Registered Nurse) Pt A+Ox4, VSS. Pt continued to c/o generalized body pain 11/18, received morphine q3h throug hout shift. Awaiting blood and urine cultures from [facility]. Tanika Alaniz RN yee, Makenzie Arshad MD - 02/13/2017 1:16 PM PST Progress Notes by Makenzie Raymond MD at 02/13/17 1316 Author: Makenzie Raymond MD Service: (none) Author Type: Physician Filed: 02/13/17 1349 Date of Service: 02/13/17 1316 Status: Addendum Car Driver: Makenzie Raymond MD (Physician) Related Notes: Original Note by Makenzie Raymond MD (Physician) filed at 02/13/[address] [facility] Service: Hospitalist Progress Note Pt: Smita Willingham AGE/SEX: 61 y.o. female : 1955 ROOM: [facility]/7101-1 REQUESTING PROVIDER: Makenzie Raymond MD TODAY'S DATE: [...] no guarding Or rebound EXt no edema ACCOUNT DEVELOPMENT MANAGER alert no focality LABS: Recent Labs Lab [...] AST 21 -- Phosphorus: Recent Labs Lab 02/13/17 0509 PHOS 2.5 Recent Labs Lab 02/13/17 0509 02/12/17 0641 MG 1.7 2.1 No results for input(s): AMYLASE in the last 168 hours. No results for input(s): PHART, PO2ART, SNG4MLN, G7FDQOGP, BEART in the last 168 hours. Recent Labs Lab 02/13/17 0509 02/12/17 0641 02/11/17 2140 APTT -- -- 27 [...] BC f/ up were send out from [facility]' ER . IV fluids on board WBC [...] 02/13/1756 Date of Service: 02/13/17827 Status: Signed Car Driver: Erin Turner DO (Physician) [facility] Service: Infectious Disease Progress Note Hospital [...] presented to the emergency d epartment at [facility] in [place]. Workup there did show significant pyuria, and [...] culture and blood cultures were collected at [facility] jesse or to transfer. Updated reports have been requested. PROBLEM LIST Principal Problem: Sepsis(995.91) due to UTI Active Problems: Crohn's disease (HCC) GERD (gastroesophageal reflux disease) HTN (hypertension) Chronic anticoagulation Hypertension Current chronic use of systemic steroids Neuropathy Encephalopathy in sepsis Immunosuppressed status ([facility]) ASSESSMENT & PLAN Sepsis(995.91) due to [...] 02/13/17728 Date of Service: 02/13/17728 Status: Signed Car Driver: Latha Hall RPH (Pharmacist) TPN notes: Blood [...] (none) Author Type: Registered Nurse Filed: 02/13/17 0431 Date of Service: 02/13/17427 Status: Signed Car Driver: Tanika Alaniz RN (Registered Nurse) Pt A+Ox4, but weak and lethargic. VSS. Morphine x3 given for generalized pain. TPN running through port. Pt incontinent of urine and sometimes stool. Tanika Alaniz RN onver roshan Transaction, Provider Unknown - 02/12/2017 3:59 PM PDT Case Management by Terrance Madsen MS, MSW at 02/12/17 6179 Author: Terrance Madsen MS, MSW Service: (none) Author Type: Financial Solutions Advisor Filed: 02/12/17 2307 Date of Service: 02/12/17 8884 Status: Signed Car Driver: Terrance Madsen, MS, LODE MINER BLASTING (Financial Solutions Advisor) 02/12/17 0715 Discharge Planning Evaluation Admitting Diagnosis Sepsis due [...] of care post d/c. Pt resides at [facility] with spouse Kole in [facility]. Pt does not drive since she has been ill., her s pouse is able to drive and can come see her. Pt reports a significant history of feeling ill and not be at home lately. She Power of Finisher Card Tender No Anticipated Discharge Plan Post Acute Care [...] who presents to the Emergency Department in [facility]. She f ollows up with [...] ER. She was thereafter transferred over to [facility] for further care. Patient's PCP is: No primary care provider on file. - Dr. Fernandes. Patient's insurance: medicare, [employer] Coverage concerns:none reported Medication coverage/concerns: none Community resources utilized / needed: uses [place] [facility], [facility] for TPN. May need home health to [...] 02/12/171406 Date of Service: 02/12/171406 Status: Signed Car Driver: Latha Hall RPH (Pharmacist) Pharmacy Consult for INITIATION of Parenteral Nutrition Smita Willingham 61 y.o. female Ht Readings from Last 1 Encounters: 02/11/17 1.727 m (5' 8") Wt Readings from Last 1 Encounters: 02/11/17 74.5 kg (164 lb 4.8 oz) Environmental Epidemiologist recommendations: Recommendations Recommended parenteral nutritional needs for [...] Service: Pharmacy Author Type: Pharmacist Filed: 02/12/17 1224 Date of Service: 02/12/17 1224 Status: Signed Car Driver: Sofía Chamberlain RPH (Pharmacist) Clinical Pharmacy Note: [...] Notes by Sanjuana Spivey RD at 02/12/17 1140 Author: Sanjuana Spivey RD Service: (none) Author Type: Registered Dietitian Filed: 02/12/17 1142 Date of Service: 02/12/17 1140 Status: Signed Car Driver: Sanjuana Spivey RD (Registered Dietitian) 02/12/17 1128 [...] Estimated Energy Needs Total Energy Estimated Needs 0125-5959 kcal Method for Estimating Needs 28-32 kcal/kg [...] Follow up date 02/15/[address] Farshad, Makenzie Arshad MD - 02/12/2017 11:22 AM PDT Progress Notes by Makenzie Raymond MD at 02/12/17 1122 Author: Makenzie Raymond MD Service: (none) Author Type: Physician Filed: 02/12/17 2626 Date of Service: 02/12/17 1122 Status: Addendum Car Driver: Makenzie Raymond MD (Physician) Related Notes: Original Note by Makenzie Raymond MD (Physician) filed at 02/12/[address] [facility] Service: Hospitalist Progress Note Pt: Smita Willingham AGE/SEX: 61 y.o. female : 1955 ROOM: [address] [place] [address] REQUESTING PROVIDER: Makenzie Raymond MD TODAY'S DATE: [...] C) Oral 108 18 - - - 02/11/17 2020 136/59 98.2 F (36.8 C) Oral 105 [...] no guarding Or rebound EXt no edema ACCOUNT DEVELOPMENT MANAGER alert no focality LABS: Recent Labs Lab 02/12/17 0641 WBC 19.94* HGB 10.1* HCT 34.4 PLT 594* NEUTOPHILPCT 67.56 MONOPCT 6.87 Recent Labs Lab 02/12/17 0641 NA 137 K 5.3* CL 106 CO2 21* BUN 26* CREATININE 0.93 Phosphorus: Recent Labs Lab 02/12/17 0641 PHOS 2.9 Recent Labs Lab 02/12/17 0641 MG 2.1 No results for input(s): AMYLASE in the last 168 hours. No results for input(s): PHART, PO2ART, RAL6PAS, X0VQBSWY, BEART in the last 168 hours. Recent Labs Lab 02/12/17 0641 02/11/17 2140 APTT -- 27 INR 1.4 1.3 [...] UC BC f/ up send out from [facility] ER C.Diff was negative delirium caution h/ [...] 02/12/17523 Date of Service: 02/12/17518 Status: Signed Car Driver: Tanika Alaniz RN (Registered Nurse) Pt received this shift from [facility] with UTI and complex GI hx. Pt groggy and letharg ic, but A+Ox4. Pt received fentanyl x3 for pain. Pt on personal TPN which she's had on for 3 -4 days for bowel rest. Urine cultures, blood cultures pending. C-diff negative, stools liqu id/mucousy. Note left for MD about nystatin for reddened reji area. Tanika Alaniz RN docume nted in this encounter Plan of Treatment +--------+---------+ + + + | Date | Type | Specialty | Care Team | Description | +--------+---------+ + + + | 03/27/ | Office | General Surgery | Severo, | | | 2019 | Visit | | [address] | | | | | | [address] | | | | | | [place] [address] | | | | | | [phone] | | | | | | | [...] | | | Fingerstick | performed at [facility];[address] | | LAB | | | | [address];[place], [place] | | | | | | [address] | | | | + + + [...] | | | Fingerstick | performed at [facility];[address] | | LAB | | | | [address];[place] | | | | | | [address] | | | | + + + [...] | | | | | performed at [facility] | | | | | | [address];[place], [place] | | | | | | [address] | | | | + + + [...] + + + | RED CELL | 3.89 | 3.70 - 5.10 | EXTERNAL | | | COUNT | | M/uL | LAB | | + + + + + + | Hgb | 8.6 (L) | 11.3 - 15.5 [...] | | | | | performed at [facility] | | | | | | [facility];[place], [place] | | | | | | [address] | | | | | |HYPO | | | | | |1+ | | | | | |TARGET | | | | | |1+ | | | | | |OVALO | | | | | |Testing performed at [facility];[address] [facility];[place] [address] | | | | | | | [...] EXTERNAL | | | | performed at [facility] | | LAB | | | | [facility], [place] | | | | | | [address] | | | | + + + [...] EXTERNAL | | | | performed at [facility];[address] | | LAB | | | | [address];[place] | | | | | | [address] | | | | + + + [...] | | | | | | at [facility];[address] [place] [address] | | | | | | [facility];[place] [address] | | | | + + + [...] | | | Fingerstick | performed at [facility];[address] | | LAB | | | | [address];[place] | | | | | | [address] | | | | + + + [...] | | | Fingerstick | performed at [facility];[address] | | LAB | | | | [address];[place] | | | | | | [address] | | | | + + + [...] | | | Fingerstick | performed at [facility];[address] | | LAB | | | | [address];[place], [place] | | | | | | [address] | | | | + + + [...] | | | Fingerstick | performed at [facility];[address] | | LAB | | | | [address];[place], [place] | | | | | | [address] | | | | + + + [...] | | | Fingerstick | performed at [facility];[address] | | LAB | | | | [address];[place] | | | | | | [address] | | | | + + + [...] | | | | | performed at [facility];[address] | | | | | | [address];[place], [place] | | | | | | [address] | | | | + + + [...] + + + | RED CELL | 4.03 | 3.70 - 5.10 | EXTERNAL | | | COUNT | | M/uL | LAB | | + + + + + + | Hgb | 8.6 (L) | 11.3 - 15.5 [...] | | | | | | at [facility];[address] [facility] | | | | | | Bl;[place] [address] | | | | | |ANISO | | | | | |1+ | | | | | |OVALO | | | | | |1+ | | | | | |TARGET | | | | | |NORMAL PLT MORPH | | | | | |Testing performed at [facility];[address] [place] [address];[place] [address] | | | | | | | [...] EXTERNAL | | | | performed at [facility];[address] | | LAB | | | | [address];[place], [place] | | | | | | [address] | | | | + + + [...] LAB | | | | performed at [facility];[address] | | | | | | [address];[place], [place] | | | | | | [address] | | | | + + + [...] | | | | | | at [facility];[address] [place] [address] | | | | | | [facility];[place] [address] | | | | + + + [...] | | | Fingerstick | performed at [facility];[address] | | LAB | | | | [address];[place], [place] | | | | | | [address] | | | | + + + [...] | | | Fingerstick | performed at [facility];[address] | | LAB | | | | [address];[place], [place] | | | | | | [address] | | | | + + + [...] | | | Fingerstick | performed at [facility];[address] | | LAB | | | | [address];[place] | | | | | | [address] | | | | + + + [...] | | | es | performed at [facility], [address] | | LAB | | | | [address], | | | | | | [place] [address] | | | | + + + [...] | | | | | [place] [address] | | | | + + + [...] | | | Fingerstick | performed at [facility];[address] | | LAB | | | | [address];[place] | | | | | | [address] | | | | + + + [...] EXTERNAL | | | | performed at [facility];[address] | | LAB | | | | [address];[place], [place] | | | | | | [address] | | | | + + + [...] | | | | | performed at [facility] | | | | | | [facility];[place], [place] | | | | | | [address] | | | | + + + [...] | | | | | performed at [facility] | | | | | | [facility];[place], [place] | | | | | | [address] | | | | + + + [...] + + + | RED CELL | 4.20 | 3.7 0 - 5.10 | EXTERNAL | | | COUNT | | M/u L | LAB | | + + +---- + + + | Hgb | 8.7 (L) | 11. 3 - [...] | | | | g performed at [facility], [facility] | | | | | | [address] [facility], | | | | | | [place] [address] | | | | | |HYPO | | | | | |2+ | | | | | |TARGET | | | | | |1+ | | | | | |OVALO | | | | | |1+ | | | | | |ACANTHO | | | | | |Testing performed at [facility], [facility] [address] [facility], [place] [address] | | | | | | | [...] EXTERNAL | | | | performed at [facility] | | LAB | | | | [address];[place] | | | | | | [address] | | | | + + + [...] LAB | | | | performed at [facility];[address] | | | | | | [address] [facility];[place], [place] | | | | | | [address] | | | | + + + [...] | | | | | | at [facility];[address] [place] [address] | | | | | | [facility];[place] [address] | | | | + + + [...] | | | Fingerstick | performed at [facility] | | LAB | | | | [address];[place], [place] | | | | | | [address] | | | | + + + [...] | | | Fingerstick | performed at [facility];[address] | | LAB | | | | [address];[place] | | | | | | [address] | | | | + + + [...] | | | Fingerstick | performed at [facility];[address] | | LAB | | | | [address];[place] | | | | | | [address] | | | | + + + + + + + + | Specimen | + + | | + + + +---------+ + + | Performing | Address | City/State/Zipcode | Phone Number | | Organization | | | | + +---------+ + + | EXTERNAL LAB | | | | + +---------+ + + Ki FLORES (02/12/2017 6:41 AM PDT) + + + [...] | | | | | performed at [facility] | | | | | | [address] [facility];[place], [place] | | | | | | [address] | | | | + + + [...] + + + | RED CELL | 4.73 | 3.70 - 5.10 | EXTERNAL | | | COUNT | | M/uL | LAB | | + + + + + + | Hgb | 10.1 (L) | 11.3 [...] | | | | | performed at [facility] | | | | | | [address];[place] | | | | | | [address] | | | | + + + [...] EXTERNAL | | | | performed at [facility];[address] | | LAB | | | | [address];[place], [place] | | | | | | [address] | | | | + + + [...] EXTERNAL | | | | performed at [facility] | | LAB | | | | [address];[place] | | | | | | [address] | | | | + + + [...] | | | | | | at [facility];[address];[place] [address] | | | | + + + [...] C.difficile. | | | Testing performed at [facility];[address] [place] [address];[place] [address] | | + + + + +---------+ [...] EXTERNAL | | | | performed at [facility];888 | mmol/L | LAB | | | | [address];[place], [place] | | | | | | [address] | | | | + + + [...] EXTERNAL | | | | performed at [facility];888 | mmol/L | LAB | | | | Torsten Singh;[place] | | | | | | [address] | | | | + + + [...] | | | Patient | performed at [facility];888 | | LAB | | | | Sarmientosteffen Singh;[place], [place] | | | | | | [address] | | | | + + + [...] | | | | | performed at [facility] | | | | | | [facility];[place], [place] | | | | | | [address] | | | | + + + [...]
--- OUTSIDE RECORDS SUMMARY | ~2019-03-09 | XMS | Encounter Summary ---
Demographics + + + | Address | [address] | | | [place] [address] | + + + | Home Phone | | + + + | Preferred Language | Unknown | + + + | Marital Status | | + + + | Hoahaoism Affiliation | NRP | + + + | Race | White | + + + | Ethnic Group | Not or | + + + Author + + + | Author | [facility] | + + + | Organization | [facility] | + + + | Address | Unknown | + + + | Phone | Unavailable | + + + Support + + + + + | Name | Relationship | Address | Phone | + + + + + | Kole Willingham | [place] | [address] | | | | | [place], [place] | | | | | [address] | | + + + + + | Cami Sawyer | ECON | Unknown | | + + + + + Care Team Providers + +------+ + | Care Assistant Finance Manager Name | Role | Phone | [...] | 2011 | Encounter | [address] [facility] | | | | | | [facility] | | | | | | [facility] | | | | | | [place], [place] | | | | | | [address] | | | | | | [phone] | | | +--------+ + + + [...]
--- OUTSIDE RECORDS SUMMARY | ~2019-03-09 | XMS | Clinical Summary ---
Demographics + + + | Address | [address] | | | [place] [address] | + + + | Home Phone | | + + + | Preferred Language | Unknown | + + + | Marital Status | | + + + | Pentecostal Affiliation | Unknown | + + + | Race | Unknown | + + + | Ethnic Group | Unknown | + + + Author + + + | Author | [facility] (Historical as of | | | 11-25-18) | + + + | Organization | [facility] (Historical as of | | | 11-25-18) [...] Team Providers + +------+ + | Care Clearance Representative Name | Role | Phone | + [...] Overview: Added automatically from request for surgery [id number] | + + + + + | [...] | 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
--- OUTSIDE RECORDS SUMMARY | ~2019-03-09 | XMS | Encounter Summary ---
Demographics + + + | Address | [address] | | | [place] [address] | + + + | Home Phone | | + + + | Preferred Language | Unknown | + + + | Marital Status | | + + + | Moravian Affiliation | Unknown | + + + | Race | Unknown | + + + | Ethnic Group | Unknown | + + + Author + + + | Author | [facility] | | | and [place] | + + + | Organization | [facility] | | [...] Team Providers + +------+ + | Care Spout Worker Name | Role | Phone | + +------+ + PCP | Unavailable | + +------+ + Encounter Details +--------+ + + + + | Date | Type | Department | Care Team | Description | +--------+ + + + + | 03/01/ | [facility] | [facility] | Conversion | | | 2017 | Encounter | [facility] XRAY | Transaction, | | | | | [address] | Provider Unknown | | | | | [place], [place] | | | | | | [address] | (Fax) | | | | | [phone] | | | +--------+ + + + [...]
--- OUTSIDE RECORDS SUMMARY | ~2019-03-09 | XMS | Encounter Summary ---
Demographics + + + | Address | [address] | | | [place] [address] | + + + | Home Phone | | + + + | Preferred Language | Unknown | + + + | Marital Status | | + + + | Worship Affiliation | Unknown | + + + | Race | Unknown | + + + | Ethnic Group | Unknown | + + + Author + + + | Author | [facility] | | | and [place] | + + + | Organization | [facility] | | | [...] Team Providers + +------+ + | Care Game Designer/Creative Director Name | Role | Phone | + [...] Unknown | | | | | [place], [place] | [phone] | | | | | [address] | | | | | | [phone] | | | +--------+ + + + [...]
--- OUTSIDE RECORDS SUMMARY | ~2019-03-09 | XMS | Encounter Summary ---
Demographics + + + | Address | [address] | | | [place] [address] | + + + | Home Phone [...] Team Providers + +------+ + | Care Informatics Analyst Name | Role | Phone | + [...] | | | | | [place] | [phone] | | | | | [address] | | | | | | [phone] | | | +--------+ + + + [...] | | | | | | [facility] [address] | | | | | | [place] [address] | | | | | | [phone] | | | | | | | [...]
--- OUTSIDE RECORDS SUMMARY | ~2019-03-09 | XMS | Encounter Summary ---
Demographics + + + | Address | [address] | | | [place] [address] | + + + | Home Phone | | + + + | Preferred Language | Unknown | + + + | Marital Status | | + + + | Sabianism Affiliation | NRP | + + + [...] [place], [place] | | | | | [address] | | + + + + + | Cami Sawyer | ECON | Unknown | | + + + + + Care Team Providers + +------+ + | Care System Validation Engineer Name | Role | Phone | [...] 2015 | | General Surgery at | [facility] [address] | | | | | [facility] [address] | [address] | | | | | [address] | [facility] [place] | | | | | Mailcode: [id number] | [address] | | | | | Jose Ortiz | [phone] | | | | | [address] [facility] [place] | | | | | | [address] | | | | | | [phone] | | | +--------+ + + + [...]
--- OUTSIDE RECORDS SUMMARY | ~2019-03-09 | XMS | Encounter Summary ---
Demographics + + + | Address | [address] | | | [place] [address] | + + + | Home Phone | | + + + | Preferred Language | Unknown | + + + | Marital Status | | + + + | Adventism Affiliation | Unknown | + + + | Race | Unknown | + + + | Ethnic Group | Unknown | + + + Author + + + | Author | [facility] | | | and [place] | + + + | Organization | [facility] | | | [...] Team Providers + +------+ + | Care First Aid Nurse Name | Role | Phone | + +------+ + PCP | Unavailable | + +------+ + Encounter Details +--------+ + + + + | Date | Type | Department | Care Team | Description | +--------+ + + + + | 03/01/ | [facility] | [facility] | Conversion | | | 2017 | Encounter | [facility] XRAY | Transaction, | | | | | [address] | Provider Unknown | | | | | [place], [place] | | | | | | [address] | (Fax) | | | | | [phone] | | | +--------+ + + + [...]
--- OUTSIDE RECORDS SUMMARY | ~2019-03-09 | XMS | Clinical Summary ---
Demographics + + + | Address | [address] | | | [place] [address] | + + + | Home Phone | | + + + | Preferred Language | Unknown | + + + | Marital Status | | + + + | Tenriism Affiliation | NRP | + + + | Race | White | + + + | Ethnic Group | Not or | + + + Author + + + | Author | [facility] | + + + | Organization | [facility] | + + + [...] [place], [place] | | | | | [address] | | + + + + + | Cami Sawyer | ECON | Unknown | | + + + + + Care Team Providers + +------+ + | Care Machine Rug Cleaner Name | Role | Phone | + +------+ + | Aren Rose DO | PCP | | + +------+ + Source Comments ARTUR is fully live on both EpicCare Ambulatory and EpicCare InPatient.[facility] Allergies + + + + + + [...] + + | Overview: Vaccinations given at [facility] pneumonia and flu and | | at [facility] HIB and meningeal coccal 04/25 | [...] | | | | | | | [address] | | + +--------+ +--------+ + +--------+ | [employer] | AARP | xxxxxxxxx-x | 04/11/19 | [phone] | [address] | Indemn | | RETIRED PEOPLE | | | 13-Pre | 9 | [id number] | ity | | | | | sent | | [place], [place] | | | | | | | | [address] | | + +--------+ +--------+ + +--------+ [...] | 1956 | [phone] | [place] [address] | | | bianca | | | 8 (Home) | | | | | | [phone] | | | | | | | [...]
--- OUTSIDE RECORDS SUMMARY | ~2019-03-09 | XMS | Clinical Summary ---
Demographics + + + | Address | [address] | | | [place] [address] | + + + | Home Phone | | + + + | Preferred Language | Unknown | + + + | Marital Status | | + + + | Temple Affiliation | NRP | + + + | Race | White | + + + | Ethnic Group | Not or | + + + Author + + + | Author | [facility] | + + + | Organization | [facility] | + [...] [place], [place] | | | | | [address] | | + + + + + | Cami Sawyer | ECON | Unknown | | + + + + + Care Team Providers + +------+ + | Care Mouse Breeder Name | Role | Phone | + +------+ + | Aren Rose DO | PCP | | + +------+ + Source Comments ARTUR is fully live on both EpicCare Ambulatory and EpicCare InPatient.[facility] Allergies + + + + + [...] + + | Overview: Vaccinations given at [facility] pneumonia and flu and | | at [facility] HIB and meningeal coccal [...] | | | | | | | [address] | | + +--------+ +--------+ + +--------+ | [employer] | AARP | xxxxxxxxx-x | 04/11/19 | [phone] | [address] | Indemn | | RETIRED PEOPLE | | | 13-Pre | 9 | [id number] | ity | | | | | sent | | [place], [place] | | | | | | | | [address] | | + +--------+ +--------+ + +--------+ [...] | 1956 | [phone] | [place] [address] | | | bianca | | | 8 (Home) | | | | | | | [phone] | | | | | | | [...]
--- OUTSIDE RECORDS SUMMARY | ~2019-03-09 | XMS | Encounter Summary ---
Demographics + + + | Address | [address] | | | [place] [address] | + + + | Home Phone | | + + + | Preferred Language | Unknown | + + + | Marital Status | | + + + | Church Affiliation | NRP | + + + | Race | White | + + + | Ethnic Group | Not or | + + + Author + + + | Author | [facility] | + + + | Organization | [facility] | + + + | Address | Unknown | + + + | Phone | Unavailable | + + + Support + + + + + | Name | Relationship | Address | Phone | + + + + + | Kole Willingham | [place] | [address] | | | | | [place], [place] | | | | | [address] | | + + + + + | Cami Sawyer | ECON | Unknown | | + + + + + Care Team Providers + +------+ + | Care Rectangular Tank Cooper Name | Role | Phone | + [...] | | | 2011 | Event | [facility] | [address] | | | | | Admitting Desk | [address] | | | | | Located on the 9 | [place], [place] | | | | | floor [address] | [address] | | | | | [address] | [phone] | | | | | [place], [place] | | | | | | [address] | Bigg Smalls MD | | | | | | [address] | | | | | | [address] | | | | | | [facility] [place] | | | | | | [address] | | | | | | [phone] | | | | | | | [...] | Froylan Vázquez CRNA 15 min. Break 1151-0168 | | | 9 | | | [...] Smith RN | | Tanvi | | LOCK FITTER | | | y Cath | | [...] Cole RN | | Periph | | LOCK FITTER | | | eral | | | [...]
--- OUTSIDE RECORDS SUMMARY | ~2019-03-09 | XMS | Encounter Summary ---
Demographics + + + | Address | [address] | | | [place] [address] | + + + | Home Phone [...] [place], [place] | | | | | [address] | | + + + + + | Cami Sawyer | ECON | Unknown | | + + + + + Care Team Providers + +------+ + | Care Porcelain Finisher Name | Role | Phone | [...] | | | | | Procedures | [place], [place] | [facility] | | | | | CONSULT TO | [address] | for Health | | | | | GI PROCEDURE | Phone: | and Healing, | | | | | UNIT: | [phone] | [address] | | | | | FLEXIBLE | Fax: | [place], [place] | | | | | [place] | [phone] | [address] | | | | | [place] | | Phone: | | | | | [place] | | [phone] | | | | | Y,BIOPSY | | Fax: | | | | | | | [phone] | +--------+--------+ + + + + Reason [...] schedule tests | | 2016 | | [place] at [facility] [address] | [address] | | | | | [address] | [facility], | | | | | Mailcode: [place] | [place] [address] | | | | | [facility] and | [phone] | | | | | [place] [address] | | | | | | [place], [place] | | | | | | [address] | | | | | | [phone] | | | +--------+ + + + [...]
--- OUTSIDE RECORDS SUMMARY | ~2019-03-09 | XMS | Encounter Summary ---
Demographics + + + | Address | [address] | | | [place] [address] | + + + | Home Phone [...] [place], [place] | | | | | [address] | | + + + + + | Cami Sawyer | ECON | Unknown | | + + + + + Care Team Providers + +------+ + | Care Medical Transcriptionist Name | Role | Phone | + [...] | | 2016 | | Center at [facility] [address] | | - General | | | | [address] | | | | | | Mailcode: Center | | | | | | [facility] and | | | | | | [facility], [facility] [address] | | | | | | [place], [place] | | | | | | [address] | | | | | | [phone] | | | +--------+ + + + [...]
--- OUTSIDE RECORDS SUMMARY | ~2019-03-09 | XMS | Encounter Summary ---
Demographics + + + | Address | [address] | | | [place] [address] | + + + | Home Phone | | + + + | Preferred Language | Unknown | + + + | Marital Status | | + + + | Christian Affiliation | Unknown | + + + [...] Team Providers + +------+ + | Care Golf Course Superintendent Name | Role | Phone | + +------+ + PCP | Unavailable | + +------+ + Encounter Details +--------+ + + + + | Date | Type | Department | Care Team | Description | +--------+ + + + + | 03/01/ | Hospital | [facility] | Conversion | | | 2017 | Encounter | [facility] | Transaction, | | | | | CLINIC [address] | Provider Unknown | | | | | [place], [place] | | | | | | [address] | (Fax) | | | | | [phone] | | | +--------+ + + + [...] [address] | | | | | | [place] [address] | | | | | | [phone] | | | | | | | | +--------+---------+ + + + documented as of this encounter Procedures + +--------+ + + + | Procedure Name | Priori | Date/Time | Associated Diagnosis | Comments | | | ty | | | | + +--------+ + + + | XR CHEST 2 VIEWS | Routin | 03/01/2017 | | Results for this | | | e | 5:45 PM | | procedure are in the | | | | PST | | results section. | + +--------+ + + + | MRSA NAAT | Timed | 03/01/2017 | | Results for this | | | | 5:23 PM | | procedure are in the | | | | PST | | results section. | + +--------+ + + + | PROTIME INR | Routin | 03/01/2017 | | Results for this | | | e | 5:23 PM | | procedure are in the | | | | PST | | results section. | + +--------+ + + + | TYPE AND SCREEN | Routin | 03/01/2017 | | Results for this | | | e | 5:23 PM | | procedure are in the | | | | PST | | results section. | + +--------+ + + + | COMPREHENSIVE | Routin | 03/01/2017 | | Results for this | | METABOLIC PANEL | e | 5:23 PM | | procedure are in the | | | | PST | | results section. | + +--------+ + + + documented in this encounter Results XR Chest 2 Vws (03/01/2017 5:45 PM PST) + + | Specimen | + + | | + + + + + | Impressions | Performed At | + + + | 1. Mild right basilar atelectasis. 2. Elevated right | | | hemidiaphragm consistent with eventration. 3. No other acute | | | cardiopulmonary abnormality | | + + + + + + | Narrative | Performed At | + + + | [facility] 1955 61 years Female XR CHEST 2 VIEW FRONTAL AND | | | LATERAL 03/01/2017 5:45 PM INDICATION: Smoker. COMPARISON: | | | October 10, 2015 TECHNIQUE: Two view chest, PA and lateral views | | | FINDINGS: Elevated right hemidiaphragm, consistent with | | | eventration. Epidural stimulation wires. Left Mediport in expected | | | position. No pneumothorax, no pleural effusion. Right mild | | | basilar platelike atelectasis/scar. Upper mediastinal contours are | | | normal. Heart size is normal. No acute osseous abnormality. | | + + + + + | Procedure Note | + + | Judson, Rad Conversion - 11/23/2018 2:13 AM PDT [facility] | | 1955 | | 61 years Female | | XR CHEST 2 VIEW FRONTAL AND LATERAL | | 03/01/2017 5:45 PM | | | | INDICATION: Smoker. | | | | COMPARISON: October 10, 2015 | | | | TECHNIQUE: Two view chest, PA and lateral views | | | | FINDINGS: | | | | Elevated right hemidiaphragm, consistent with eventration. | | | | Epidural stimulation wires. Left Mediport in expected position. | | | | No pneumothorax, no pleural effusion. Right mild basilar platelike atelectasis/scar. | | | | Upper mediastinal contours are normal. Heart size is normal. | | | | No acute osseous abnormality. | | | | IMPRESSION: | | | | | | 1. Mild right basilar atelectasis. | | 2. Elevated right hemidiaphragm consistent with eventration. | | 3. No other acute cardiopulmonary abnormality | | | | | + + Type and Screen (03/01/2017 5:23 PM PST) + + + + + + | Component | Value | Ref Range | Performed | Pathologist | | | | | At | Signature | + + + + + + | ABO Rh | O NEGATIVE | | EXTERNAL | | | | | | LAB | | + + + + + + | Antibody | NEGATIVETesting | | EXTERNAL | | | Screen | performed at [facility];[employer] | | LAB | | | | [facility];[place] | | | | | | [address] | | | | + + + + + + + + | Specimen | + + | Blood specimen | | (specimen) | + + + +---------+ + + | Performing | Address | City/State/Zipcode | Phone Number | | Organization | | | | + +---------+ + + | EXTERNAL LAB | | | | + +---------+ + + MRSA NAAT (03/01/2017 5:23 PM PST) + + | Specimen | + + | | + + + + + | Narrative | Performed At | + + + | SOURCE NARES(NOSE) MRSA | EXTERNAL LAB | | PCR POSITIVE for MRSA by | | | PCRAbnormal Testing performed at [facility];[address] [facility];[place] [address] | | + + + + +---------+ + + | Performing | Address | City/State/Zipcode | Phone Number | | Organization | | | | + +---------+ + + | EXTERNAL LAB | | | | + +---------+ + + Mauime SANDRA (03/01/2017 5:23 PM PST) + + + + + + | Component | Value | Ref Range | Performed | Pathologist | | | | | At | Signature | + + + + + + | INR | 2.1Comment: REFERENCE | | [...] | | | | | performed at [facility];[employer] | | | | | | [facility];[place], [place] | | | | | | [address] | | | | + + + [...] + +---------+ + + Comprehensive Metabolic Panel (03/01/2017 5:23 PM PST) + + + + + + | Component | Value | Ref Range | Performed | Pathologist | | | | | At | Signature | + + + + + + | Na | 143 | 135 - 145 | EXTERNAL | | | | | mmol/L | LAB | | + + + + + + | K | 2.3 (LL)Comment: CALLED | 3.5 - 4.9 | EXTERNAL | | | | PHYSICIAN'S OFFICERESULT | mmol/L | LAB | | | | READ BACK | | | | | | BY:ALTHEA/FRANCESCO Jones | | | | | | @17:59, MYV | | | | | | | | | | + + + + + + | Cl | 114 (H) | 99 - 109 mmol/L | EXTERNAL | | | | | | LAB | | + + + + + + | CO2 | 15 (L) | 23 - 32 mmol/L | EXTERNAL | | | | | | LAB | | + + + + + + | Anion Gap | 16 | 5 - 20 mmol/L | EXTERNAL | | | | | | LAB | | + + + + + + | Glucose, | 107 (H) | 65 - 99 mg/dL | EXTERNAL | | | Fasting | | | LAB | | + + + + + + | BUN | 28 (H) | 8 - 25 mg/dL | EXTERNAL | | | | | | LAB | | + + + + + + | Creatinine | 0.76 | 0.50 - 1.00 | EXTERNAL | | | | | mg/dL | LAB | | + + + + + + | BUN/Creatin | 36 | | EXTERNAL | | | ine Ratio | | | LAB | | + + + + + + | Calcium | 8.9 | 8.5 - 10.5 | EXTERNAL | | | | | mg/dL | LAB | | + + + + + + | Protein, | 8.2 | 6.3 - 8.2 g/dL | EXTERNAL | | | Total | | | LAB | | + + + + + + | Albumin | 3.0 (L) | 3.3 - 4.8 g/dL | EXTERNAL | | | | | | LAB | | + + + + + + | Globulin | 5.2 (H) | 1.3 - 4.9 g/dL | EXTERNAL | | | | | | LAB | | + + + + + + | A/G Ratio | 0.6 (L) | 1.0 - 2.4 | EXTERNAL | | | | | | LAB | | + + + + + + | Bilirubin | 0.4 | 0.1 - 1.5 mg/dL | EXTERNAL | | | Total | | | LAB | | + + + + + + | ALP, | 259 (H) | 35 - 115 U/L | EXTERNAL | | | External | | | LAB | | + + + + + + | AST | 47 (H) | 10 - 45 U/L | EXTERNAL | | | | | | LAB | | + + + + + + | ALT | 64 | 10 - 65 U/L | EXTERNAL [...] | | | | | | at [facility];[address] | | | | | | [place] [address] | | | | + + + [...]
--- OUTSIDE RECORDS SUMMARY | ~2019-03-09 | XMS | Encounter Summary ---
Demographics + + + | Address | [address] | | | [place] [address] | + + + | Home Phone | | + + + | Preferred Language | Unknown | + + + | Marital Status | | + + + | Adventist Affiliation | NRP | + + + [...] [place], [place] | | | | | [address] | | + + + + + | Cami Sawyer | ECON | Unknown | | + + + + + Care Team Providers + +------+ + | Care Solar Photovoltaic Crew Lead Name | Role | Phone | + +------+ + | Aren Rose DO | PCP | | + +------+ + Encounter Details +--------+ + + + + | Date | Type | Department | Care Team | Description | +--------+ + + + + | 09/25/ | Document-Sc | UNKNOWN DEPARTMENT | Unknown . | | | 2014 | anned | [address] | | | | | | [address] | | | | | | [place], [place] | | | | | | [address] | | | +--------+ + + + [...]
--- OUTSIDE RECORDS SUMMARY | ~2019-03-09 | XMS | Encounter Summary ---
Demographics + + + | Address | [address] | | | [place] [address] | + + + | Home Phone | | + + + | Preferred Language | Unknown | + + + | Marital Status | | + + + | Evangelical Affiliation | NRP | + + + | Race | White | + + + | Ethnic Group | Not or | + + + Author + + + | Author | [facility] | + + + | Organization | [facility] | + + + | Address | Unknown | + + + | Phone | Unavailable | + + + Support + + + + + | Name | Relationship | Address | Phone | + + + + + | Kole Hartley | LAMONT | [address] | | | | | [place], [place] | | | | | [address] | | + + + + + | Cami Sawyer | ECON | Unknown | | + + + + + Care Team Providers + +------+ + | Care Dielectric Press Operator Name | Role | Phone [...] Hospital | | | | | | [place], [place] | [place], [place] | | | | | | [address] | [address] | | | | | | Phone: | Phone: | | | | | | [phone] | [phone] | | | | | | Fax: | Fax: | | | | | | [phone] | [phone] | +--------+--------+ + + + + Diagnostic [...] | | | | | | | [place], [place] | | | | | | | [address] | | | | | | | Phone: | | | | | | | [phone] | | | | | | | Fax: | | | | | | | [phone] | +--------+--------+ + + + + Diagnostic [...] | | | | LOWER | Road [place], | [facility] | | | | | EXTREMITY | [place] [address] | Rd Mailcode: | | | | | BILAT | Phone: | [phone] | | | | | | [phone] | Physician's | | | | | | Fax: | Pavilion | | | | | | [phone] | [place], [place] | | | | | | | [address] | | | | | | | Phone: | | | | | | | [phone] | | | | | | | Fax: | | | | | | | [phone] | +--------+--------+ + + + + Diagnostic [...] | | | | | | | [place], [place] | | | | | | | [address] | | | | | | | Phone: | | | | | | | [phone] | | | | | | | Fax: | | | | | | | [phone] | +--------+--------+ + + + + Diagnostic [...] | | | Dariela Saab MD | [facility] [address] | | | | | TRANSTHORACI | | [address] | | | | | C | | [address] | | | | | ECHOCARDIOGR | | Mailcode: | | | | | AM, ADULT | | [address] | | | | | | | Rome[address] | | | | | | | [facility] | | | | | | | [place], [place] | | | | | | | [address] | | | | | | | Phone: | | | | | | | [phone] | +--------+--------+ + + + + Diagnostic [...] ARTER DUPLEX | [address] | [facility] | | | | | [facility] | [facility], | [facility] | | | | | EXTREMITY | [place] [address] | Rd Mailcode: | | | | | BILATERAL | Phone: | PV450 | | | | | COMPLETE | [phone] | Physician's | | | | | | Fax: | Pavilion | | | | | | [phone] | [place], [place] | | | | | | | [address] | | | | | | | Phone: | | | | | | | [phone] | | | | | | | Fax: | | | | | | | [phone] | +--------+--------+ + + + + Diagnostic [...] | | | | DUPLEX | Road [place], | [facility] | | | | | COMPLETE | [place] [address] | Rd Mailcode: | | | | | BILATERAL | Phone: | [phone] | | | | | | [phone] | Physician's | | | | | | Fax: | Pavilion | | | | | | [phone] | [place], [place] | | | | | | | [address] | | | | | | | Phone: | | | | | | | [phone] | | | | | | | Fax: | | | | | | | [phone] | +--------+--------+ + + + + Diagnostic Testing (Routine) +--------+--------+ + + + + | Status | Reason | Specialty | Diagnoses / | Referred By | Referred To | | | | | Procedures | Contact | Contact | +--------+--------+ + + + + | Closed | | Radiology | Procedures | Lenny, | Denise Vasc | | | | [...] | | | | | | | [place], [place] | | | | | | | [address] | | | | | | | Phone: | | | | | | | [phone] | | | | | | | Fax: | | | | | | | [phone] | +--------+--------+ + + + + Diagnostic [...] | | | | | | | [place], [place] | | | | | | | [address] | | | | | | | Phone: | | | | | | | [phone] | | | | | | | Fax: | | | | | | | [phone] | +--------+--------+ + + + + Reason [...] + + | 03/12/ | Hospital | [facility] [address] | Do [place], | | | 2011 - | Encounter | [address] | [address] | | | | | [address] [facility] | [facility] [place] | | | 04/01/ | | [place], [place] | [address] | | | 2011 | | [address] | [phone] | | | | | [phone] | | | | | | | Chary Doherty, | | | | | | [address] | | | | | | [address] | | | | | | [place], [place] | | | | | | [address] | | | | | | [phone] | | | | | | | | | | | | Xin Rust | | | | | | MD Nena [address] [facility] | | | | | | [facility] | | | | | | [place], [place] | | | | | | [address] | | | | | | [phone] | | | | | | | | | | | | Osbaldo Garcia MD | | | | | | [address] [facility] | | | | | | 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 At arrival to [facility] it was learned that she did NOT indeed have ischemic colitis. 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 She underwent embolectomy on 03/17, which resulted in mandaeism of flow and no loss of tissue [...] was agreed that the patient needed a lobsterman treatment and we settled o n remicade. [...] Destination: Home Other Discharge Orders and Instructions superintendent greens [facility] Go to the hospital on Tuesday [...] forming. Please call your GI doctor in [facility] to arrange for your second infusion [...] whether or not the INR is truly small business representative of anticoagulation. In patients with APLA [...] + documented as of this encounter Progress Xin Taylor MD - 04/01/2012 10:33 PM PSTGM3 Internal [...] I NR on Tuesday. KIRIT MD YOCASTA [facility] DEPARTMENT: [id number]- [facility] Faculty PPV Place of Service:- Inpatient Date of Service: 04/01/2012 CSN: [id number] Suggested Modifier: GC Resident Involved: Yes Suggested CPT: 57040- Dishcarge < 30 min Electronically signed by [...] questions. Debi Oconnor MD GI/Hepatology Fellow Pager: [phone] INTERVAL HISTORY: MRI abdomen shows no abscess; [...] risk of emboli, I called Dr. Rodriges (environmental web crawler for her PCP) to coordinate f/u of [...] noted any additions above. KIRITYann RUST MD [facility] DEPARTMENT: [id number]- [facility] Faculty PPV Place of Service:- Inpatient Date of Service: 03/31/2012 CSN: [id number] Suggested Modifier: Resident Involved: Yes Suggested CPT: 15022- Subsequent, Detailed/high complex, 35 min Davonte De [...] Hospital Day # 19 Patient:Mackenzie Hartley, Attending: Xni Rust MD Author:VIVIANA Steele ID: Mackenzie Hartley [...] state: J Gastroenterol. 2004 Jan;39(10):948-54. PubMed PMID: [id number]. Consulted [facility] for further studies on platelet inhibitor [...] no insurance. Wanting to go home for Anergis. Nurse repor ts that she has admitted [...] income that does not q ualify for Hango. F/E/N Thrombosis ppx: Warfarin, Lovenox bridge Glucose: not indicated Diet: regular Code: Do Not Resuscitate/Do Not Intubate This patient was seen with GM3, refer to Attending and Resident notes for assessment and pl an. Nuñez Norfolk, Sub-Editorial Writer Pgr: [phone] Ajay De La Rosa MD - 03/30/2012 [...] bridge after d/c until coumading therapeutic with career coordinator through medication assistance program Hypoalbuminemia (03/14/2012) Assessment: [...] noted any additions above. KIRIT MD YOCASTA [facility] DEPARTMENT: [id number]- [facility] Faculty PPV Place of Service:- Inpatient Date of Service: 03/30/2012 CSN: [id number] Suggested Modifier: Resident Involved: Yes Suggested CPT: 82368- Subsequent, Detailed/high complex, 35 min Debi Yepez [...] follow closely Shaun SAEED [place] Fellow Pg [phone] signed by Debi Oconnor MD at 03/30/2012 5:32 PM PSTCrlamin, Jacoby Barrett MD - 03/30/2012 10:25 AM PSTFormatting of this note might be different from the origi nal. [facility] DEPARTMENT OF SURGERY Daily Progress Note PROGRESS NOTE: Attending Physician: Xin Rust MD 03/31/2012 Subjective/Overnight Events: - latest CT shows resolution of abscess - no GI bleeding - no rectal/anal pain - tolerating reg diet MEDICATIONS: Reviewed in [facility] VITAL SIGNS: Refer to [facility] Intake/Output Summary (Last 24 hours) [...] concerns. Jacoby Tovar MD Surgery, R2 Diagnoses: [id number] Crohn disease This assessment and plan was [...] state: J Gastroenterol. 2004 Jan;39(10):948-54. PubMed PMID: [id number]. Consulted Heme for further studies on platelet [...] this note might be [facility] Transfer Accept Note Patient: Mackenzie Hartley Attending: [...] be staffed by Dr. Kirit Rust MD. Natahn Weeks MD Internal Medicine PGY1 Pager [phone] ecilia Toney MD - 03/29/2012 6:37 PM [...] team. Debi Oconnor MD GI Fellow Pager [phone] signed by Debi Oconnor MD at 03/29/2012 [...] planning) Debi Oconnor MD Fellow, Gastroenterology pager: [phone] signed by Debi Oconnor MD at 03/29/2012 [...] note for this encounter. OSBALDO GARCIA MD [facility] [address] [place] [address] Andrew Shah MD - 10:41 AM PST [facility] DEPARTMENT OF SURGERY Daily Progress Note PROGRESS NOTE: Attending Physician: Osbaldo Garcia MD 03/29/2012 Subjective/Overnight Events: - bowel prep initiated - Hct stable - no hematochezia or hemetemesis - MEDICATIONS: Reviewed in [facility] VITAL SIGNS: Refer to [facility] Intake/Output Summary (Last 24 hours) [...] GI Jacoby Tovar MD Surgery, R2 Diagnoses: [id number] Crohn disease This assessment and plan was [...] myself provided conscious sedation. OSBALDO GARCIA MD [facility] [address] [place] [address] I spent 35 min in critical care (not including procedures) [facility] DEPARTMENT: MICU, [facility]- [id number] Place of Service: Date of Service: 03/29/2012 CSN: [id number] Modifiers:GC Resident Involved: yes Suggested CPT: 48465 Critical Care, Initial 30-74 minutes Carlton Godwin [...] day of transfer to MICU (1 05/29/11), milmine surgery informed us that according to the [...] 0659 03/29/12 07 - 03/30/12 0659 Shift 3759-2182 6006-3305 5061-4176 Daily Total 6791-6109 2046-4418 1249-1660 Daily Total I N T A K E P.O. 1750 2525 4275 I.V. 934 7343 338 3852 Shift Total 934 3740 3450 8124 O U T P U T Urine 1075 2950 1875 5900 Urine 1075 2950 1875 5900 Other 575 397 078 5934 Measured Stool Output 350 425 775 Stool/Urine Mix 575 575 Shift Total 1650 3300 2300 7250 NET -827 699 9952 874 Intake/Output Summary (since admission) at 03/12/12 1910 Last data filed at 03/29/12 0547 Gross for the last 17 days Intake 09464 ml Output 71798 ml Net since Admission -07191 ml Physical Exam: General Appearance: middle aged [...] Carlton Betancourt DO PGY-1 Internal Medicine Pager [phone] Debi Yepez MD - 03/11 4:31 PM [...] questions. Debi Oconnor MD GI/Hepatology Fellow Pager: [phone] INTERVAL HISTORY: Episode of melena last night [...] Osbaldo Herrera MD - 03/11 2:58 PM CRISTOBAL ATTENDING PROGRESS NOTE Author: OSBALDO GARCIA MD [...] patient in the past. OSBALDO GARCIA MD [facility] [id number] [address] I spent 35 min in critical care (not including procedures) [facility]MENT: [facility]- [id number] Place of Service: Date of Service: 03/28/2012 CSN: [id number] Modifiers:GC Resident Involved: yes Suggested CPT: 98512 Critical Care, Initial 30-74 minutes Carlton Godwin [...] 03/28/12 0659 03/28/12699 - 03/29/12 0659 Shift 4593-3650 4412-1852 1115-3687 Daily Total 6812-5557 7600-0639 6283-0929 Daily Total I N T A K E P.O. 240 300 540 I.V. 404 404 934 934 Blood 1300 1300 Shift Total 874 746 7215 2244 934 934 O U T P U T Urine 500 1200 1700 1075 1075 Urine 500 1200 1700 1075 1075 Other 575 575 Stool 1 1 2 Stool/Urine Mix 575 575 Shift Total 500 1200 1700 1650 1650 NET -260 300 504 544 -719 -716 Intake/Output Summary (since admission) at 03/12/12 1910 Last data filed at 03/28/12 1400 Gross for the last 16 days Intake 49653 ml Output 02475 ml Net since Admission -97142 ml Physical Exam: General Appearance: tearful middle [...] Carlton Betancourt DO PGY-1 Internal Medicine Pager [phone] Andrew Shah MD - 6:52 AM PST [...] team and GI team would like. Andrew Herzig oGayla black MD - 03/28/2012 6:52 AM PST INPATIENT [...] Sukumar Zuniga DO Internal Medicine PGY-2 Pg [phone] Davonte De La Rosa MD - 03/27/2012 [...] noted any additions above. KIRIT MD YOCASTA [facility] DEPARTMENT: [id number]- [facility] Faculty PPV Place of Service:- Inpatient Date of Service: 03/27/2012 CSN: [id number] Suggested Modifier: GC Resident Involved: Yes Suggested CPT: 16284- Subsequent, Detailed/high complex, 35 min Marely Mccann [...] was discussed and formulated with gastroenterology at [facility], Dr. Hennessy. Please call with any questions. 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 Selling Specialist team will follow as needed. Chaplain Dung Riley M.Div., [facility] [phone] Pager #[phone]; #[phone] Xin De La Rosa MD - 7:31 [...] Hours (or 3 results): Recent Labs Basename 03/27/1252603/26/1243503/25/12312 NA 143 142 141 K 3.6 3.3* [...] J Gastroenterol. 2004 Jan;39(10):948-54. PubMed PMID: [id number]. Consulted Heme for further studies on platelet inhibitor and recommend repeating in 6 months. No new evidence of thrombosis on exam, but lung opacities concerning for alveolar hemorrhage while on warfarin. - - doppler pulses - - Coumadin at therapeutic range INR 2-3 #Anemia - iron deficiency likely from Crohn's despite absence of clear hematochezia or douglas naGhulam Venofer on 03/16. Stable Hct 30-31. - [...] an. ---- Joaquin Rivera, MS4 Pager # [phone] signed by Xin Rust MD at 03/27/2012 10:49 PM iXn Beal MD - 03/26/2012 9:28 PM PST3 [...] noted any additions above. 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 Raphael Norman MD Internal Medicine, PGY-2 [id number] Xin De La Rosa MD - 03/25/2012 [...] larger Resident spoke with vice president of procurement who spoke with staff - they did [...] taking more PO if still low ask legal activity adjudicator to see Hypophosphatemia (03/14/2012) Assessment: rechecked and [...] noted any additions above. KIRIT MD YOCASTA [facility] DEPARTMENT: [id number]- [facility] Faculty PPV Place of Service:- Inpatient Date of Service: 03/25/2012 CSN: [id number] Suggested Modifier: GC Resident Involved: Yes Suggested CPT: 06679- Subsequent, Detailed/high complex, 35 min oaquin Rivera [...] J Gastroenterol. 2004 Jan;39(10):948- 54. PubMed PMID: [id number]. Consulted Heme for further studies on platelet [...] income that does not qualif y for Hango F/E/N Thrombosis ppx: Warfarin Glucose: not indicated Diet: regular Code: Do Not Resuscitate/Do Not Intubate This patient was seen with GM3, refer to Attending and Resident notes for assessment and pl an. ---- Joaquin Rivera, MS4 Pager # [phone] Ajay De La Rosa MD - 03/24/2012 [...] drainage of abscess and coordination [facility] care [facility] radiology reviewing perirectal abscess imaging, options for intervention and need for rep eat imagin, also with GI on plan. I personally interviewed the patient, performed the gunter elements of the physical examinatio n, and personally formulated the assessment and plan with the resident. I agree with the MS4 s documentation and have noted any additions above. KIRIT RUST MD [facility] DEPARTMENT: [id number]- [facility] Faculty PPV Place of Service:- Inpatient Date of Service: 03/24/2012 CSN: [id number] Suggested Modifier: GC Resident Involved: Yes Suggested CPT: 96362- Subsequent, Detailed/high complex, 35 min Davonte De La Rosa MD - 03/24/2012 8:19 AM PSTI personally interviewed the patient, performed the perti nent parts of the physical examination and personally formulated the plan with the resident. I agree with the MS4 documentation and have documented any additions or exceptions in my p rogress note. icole Joaquin Herron - 03/24/2012 8:19 AM PST Medicine Progress [...] J Gastroenterol. 2004 Jan;39(10):948- 54. PubMed PMID: [id number]. Consulted Heme for further studies on platelet [...] for assessment and pl an. ---- Joaquin Rivera MS4 Pager # [phone] Ajay De La Rosa MD - 03/23/2012 10:44 PM GEORGIAJosué Internal Medicine Attending Interval note Hospital day: [...] noted any additions above. KIRITYann RUST MD [facility] DEPARTMENT: [id number]- [facility] Faculty PPV Place of Service:- Inpatient Date of Service: 03/23/2012 CSN: [id number] Suggested Modifier: AKHIL Resident Involved: Yes Suggested CPT: 09991- Subsequent, Detailed/high complex, 35 min Davonte De [...] be done today JERI DIAZ MD [address] [facility] [address] [place] [address] Xin De La Rosa MD - 03/23/2012 [...] chron's flair. Although had a VT run 12/12/12, it has resolved. Does not complain of [...] state: J Gastroenterol. 2004 Jan;39(10):948-54. PubMed PMID: [id number]. Consulted Heme for further studies on platelet [...] has income that does not qualify for Hango F/E/N Thrombosis ppx: Warfarin Glucose: not indicated Diet: regular Code: Do Not Resuscitate/Do Not Intubate This patient was seen with GM3, refer to Attending and Resident notes for assessment and pl an. ---- Joaquin Rivera, MS4 Pager # [phone] Ajay De La Rosa MD - 03/22/2012 10:50 PM [facility] Internal Medicine Attending Interval [...] noted any additions above. KIRITYann RUST MD [facility] DEPARTMENT: [id number]- [facility] Faculty PPV Place of Service:- Inpatient Date of Service: 03/22/2012 CSN: [id number] Suggested Modifier: GC Resident Involved: Yes Suggested CPT: 76000- Subsequent, Detailed/high complex, 35 min ox, Jeri Samuel MD - 03/22/2012 5:55 PM PST Inpatient Vascular Surgery Progress Note Hospital Day:10 Author; JERI DIZA MD Attending Physician: Xin Rust MD 24 [...] carotid duplex ordered today JERI DIAZ MD [facility] [address] [place] [address] Xin De La Rosa MD - 03/22/2012 [...] 03/20/12 202 1 NA -- 141 @ [facility] -- 142 139 K -- 3.8 [...] PTT in mixing 1:1 Neg cardiolipin, neg jhxn-P-kuuhorfpamvw Legionella Agg Urine pending Cultures: BLOOD CULTURE [...] barber: J Gastroenterol. 2004 Jan;39(10):948-54. PubMed PMID: [id number]. - Consult Heme for further studies on [...] an. ---- Joaquin Rivera, 4 Pager # [phone] Ajay De La Rosa MD - 03/21/2012 10:41 PM [facility] Internal Medicine Attending Interval [...] BP 142/76 | Pulse 106[sinus tach per teletype telegrapher[ | Temp 37.7 C (99.9 F) | [...] -- also coordination of care with pharmD. [facility] DEPARTMENT: [id number]- [facility] Faculty PPV Place of Service:- Inpatient Date of Service: 03/21/2012 CSN: [id number] Suggested Modifier: GC Resident Involved: Yes Suggested CPT: 27985- Subsequent, Detailed/high complex, 35 min Jennifer Tolentino [facility] - 03/21/2012 12:38 PM PST . [...] y.o. Female with multiple complex medical problems; [facility] Vascular Surge ry consulted due to [...] as new baseline Ok to discharge per [facility] Vascular Surgeons once ambulating and medical issues are stable. Will continue to follow while in patient. [facility] Vascular Surgery Clinic, [facility] [address], phone number [phone] Please schedule followup appointment within 2-3 weeks of surgery for wound check. Dr. Sukumar Salgado, [facility] Vascular Surgery Attending. MERT OLIVA [facility] VASCULAR SURGERY [address] [place] [address] ham, Moses Asher MD - 03/21/2012 6:55 [...] w ill need to establish care with sfdc consultant so that further treatment options can be [...] assessment and plan. Moses Anthony MD Neurology Editorial Writer Pager [phone] oaquin Rivera - 02/2012 6:55 AM PST [...] an. ---- Joaquin Rivera, MS4 Pager # [phone] Xin De La Rosa M D - [...] noted any additions above. KIRIT MD YOCASTA [facility] DEPARTMENT: [id number]- [facility] Faculty PPV Place of Service:- Inpatient Date of Service: 03/20/2012 CSN: [id number] Suggested Modifier: Resident Involved: Yes Suggested CPT: 76402- Subsequent, Detailed/high complex, 35 min Jennifer Tolentino [facility] - 03/20/2012 3:36 PM PST . Vascular [...] y.o. Female with multiple complex medical problems; [facility] Vascular Surge ry consulted due to [...] chair as tolerated, RLE WBAT -Please obtain [facility] Lab Arterial duplex ultrasound/DELORIS of both legs prior to discharge as n ew baselineObtain ABIs with waveforms To establish new blood-flow baseline Ok to discharge per [facility] Vascular Surgeons once ambulating and medical issues are stable. Will continue to follow while in patient. [facility] Vascular Surgery Clinic, [facility] [address], phone number [phone] Please schedule followup appointment within 2-3 weeks of surgery for wound check. Dr. Sukumar Salgado, [facility] Vascular Surgery Attending. MERT OLIVA [facility] VASCULAR SURGERY [address] [place] [address] Raphael Osorio - 7:58 AM PSTI agree [...] plan. Raphael Norman MD Internal Medicine, PGY-2 25571 oaquin Rivera - 2011 7:58 AM PST [...] hours (or 3 results) Recent Labs Basename 12/10/12 0700 03/19/12 0639 03/18/12 1458 WBC 25.7* [...] an. ---- Joaquin Rivera, MS4 Pager # [phone] Juma Pimentel MD - 12/2011 3:35 PM [...] movement, pink, warm and dry. Minimal edema. site [facility] no FARRUKH, c/d/i. Pulse/signal exam: RLE [...] Q6H, Moses Asher MD, 250 mg at 1212/21 1514 ciprofloxacin (aka CIPRO) tablet 500 mg, 500 mg, Oral, BID, Gloria Anthony MD, 500 mg at 12/21 0920 codeine tablet 360 mg, 360 mg, Oral, DAILY, Dariela Santoyo MD, 360 mg at 03/19/12 0920 dextrose IV 25 mL, 25 mL, Intravenous, PRN, Bibiaan Adams PA-C enoxaparin (aka LOVENOX) injection 80 [...] record is Dr. Salgado. JUMA CARRINGTON MD [facility] [address] [place] [address] Chary Moore M D - 03/19/2012 9:14 [...] note from 03/14 for details. Therefore the hxff-stcl-[id number] plan givens s been to allow her [...] plan. Lovenox bridge to be covered by [facility]. 9) Occlusive thrombus 10) Hypoalbuminemia 11) Hypophosphatemia 12) TIA (transient ischemic attack) - with PFO 13) PFO (patent foramen ovale) - plan is for lifelong coumadin. No additional benefit from device closure per CLOSURE I trial. Chary Doherty MD Chief Resident, Internal Medicine Pager: [phone] [facility] DEPARTMENT: Hosp- [id number] Place of Service: Date of Service: 03/19/2012 CSN: [id number] Modifiers:GC Resident Involved: Yes Suggested CPT: 09659 Subsequent Visit Detailed/High complexity 35 min I [...] which will be attempted under U/S kelsea barthe. Current Symptoms: Nausea -- chronic issue for [...] will need to establish c are with sfdc consultant so that further treatment options can be [...] This patient was discussed with my attending, Chayr Doherty MD, who agrees with the abo ve, including assessment and plan. Moses Anthony MD Neurology Editorial Writer Pager [phone] ose Antonio Toney MD - 03/18/2012 1:01 PM PST Inpatient [...] outpt GI, plans to establish care in [place], perhaps Dr. Byrd. Transitioning to PO meds, [...] Doherty MD Chief Resident, Internal Medicine Pager: [phone] [facility] DEPARTMENT: Hosp- [id number] Place of Service: Date of Service: 03/18/2012 CSN: [id number] Modifiers: Resident Involved: Yes Suggested CPT: 42365 Subsequent Visit Exp Prob Foc/Mod Complexity 25 [...] Date 03/18/12 07 - 03/19/12 0659 Shift 8111-5391 0362-9043 1001-0038 24 Hour Total I N T A K E P.O. 620 620 I.V. 20 20 40 Shift Total 640 20 660 O U T P U T Urine 675 100 775 Other 400 400 Shift Total 507 715 3448 Weight (kg) 74.1 74.1 74.1 74.1 General: [...] refusing). Will need to establish care with sfdc consultant so that further treatment options can be [...] in MS4 note. Moses Anthony MD Neurology Editorial Writer Pager [phone] signed by Moses Asher MD at 03/18/2012 9:50 PM [facility] - 03/18/2012 9:18 AM PST Medicine [...] for assessment and pl an. ---- Joaquin Norfolk, MS4 Pager # [phone] Chary Moore MD - 03/17/2012 8:39 PM [...] refusing). Will need to establish care with sfdc consultant so this can be discussed as outpt [...] Doherty MD Chief Resident, Internal Medicine Pager: [phone] [facility] DEPARTMENT: Hosp- [phone] Place of Service: IP - Date of Service: 03/17/2012 CSN: [id number] Modifiers:GC Resident Involved: Yes Suggested CPT: 85603 Subsequent Visit Detailed/High complexity 35 min I have spent 35 minutes with the patient of which more than 50% was spent counseling onMirela pina MD - 03/17/2012 10:51 AM PSTINPATIENT BRIEF [...] at end of case. MIRELA SALGADO MD [facility] [address] [id number] [place] [phone] ham, Gloria Lawson MD - 1 05/18/2011 [...] until she's therapeutic with her coumadin and [facility] has agreed to provide discounted INR [...] y Gloria Anthony MD Neurology PGY1 Pager: [phone] Joaquin Hui - 10/2011 7:19 AM PST [...] an. ---- Joaquin Rivera, MS4 Pager # [phone] Chray Moore MD - 03/16/2012 12:56 PM PSTMEDICINE [...] Doherty MD Chief Resident, Internal Medicine Pager: [phone] [facility] DEPARTMENT: Hosp- [id number] Place of Service: - Date of Service: 03/16/2012 CSN: [id number] Modifiers:GC Resident Involved: Yes Suggested CPT: 96610 Subsequent Visit Exp Prob Foc/Mod Complexity 25 min and 54280 Subseque nt Visit Detailed/High complexity 35 min [...] DNR/DNI Gloria Anthony MD Neurology PGY-1 Pager [phone] The patient was seen and discussed with the attending of record, Chary Doherty MD, who agrees with my assessment and plan. GIARimunir, Chary Ferrer MD - 03/15/2012 9:30 PM [...] Doherty MD Chief Resident, Internal Medicine Pager: [phone] [facility] DEPARTMENT: Hosp- [phone] Place of Service: - Date of Service: 03/15/2012 CSN: [id number] Modifiers:GC Resident Involved: Yes Suggested CPT: 37479 Subsequent Visit Detailed/High complexity 35 min Dariela [...] plan. Dariela Santoyo MD Internal Medicine PGY-3 [id number] Daryl Singleton MD - 08/2011 7:18 PM PSTHematology Attending Consult Note: I saw and examined Ms. Hartley with the Hematology Fellow, Dr. Anthony Camejo and Ana Parish the 5A Medicine unit. I participated in the gunter components of today's [facility] pital visit including review of [...] re Daryl Arteaga MD, PhD Hematology Oncology [facility] DEPARTMENT: [id number] [facility] Place of Service: - Inpatient Date of Service: 03/15/2012 Modifiers: GC - Resident Involved Suggested CPT: 61935 - Subsequent, Detailed/High complex 35 min raAnthony [...] anticoagulation clinic f/u closely; our clinic at [facility] cannot provide any suppli es -anticoagulation [...] as above. MD Hematology/Oncology Fellow Pager # [phone] signed by Daryl Arteaga MD at 03/15/2012 [...] formulated with gastroenterology attending, Dr. Casiano. Sachin se call with any questions. Bigg Robles, R1 Pager: [phone] INTERVAL HISTORY: - NAEO - VSS, AF [...] wishes to pro ceed. Mirela Samano M.D. [facility] Vascular Surgery [address] [place] [address], [place] [phone] Email: [email or web address] Sandoval Ko MD - 03/15/2012 9:30 [...] off to day. Jacoby Tovar MD Surgery [id number] signed by Sandoval Tovar MD at 03/15/2012 [...] monitor Gloria Anthony MD Neurology PGY1 Pager [phone] Daryl Singleton MD - 07/2011 4:57 PM PSTHematology Attending Consult Note: I saw and examined Ms. Hartley with the Hematology Fellow, Dr. Anthony Camejo in the [address] [place] [address] unit. I participated in the gunter components [...] re Daryl Arteaga MD, PhD Hematology Oncology [facility] DEPARTMENT: [id number] [facility] Place of Service: - Inpatient Date of Service: 03/14/2012 Modifiers: GC - Resident Involved Suggested CPT: 10650 - Subsequent, Detailed/High complex 35 min Anthony [...] Recent Labs Basename 03/14/12 1150 03/14/12 0525 03/13/1234103/12/121917 WBC 22.7* 23.4* 42.5* -- HB 6.9* [...] as above. MD Hematology/Oncology Fellow Pager # [phone] signed by Daryl Arteaga MD at 03/14/2012 [...] really for treatment Recommendations communicated with [facility] multicultural internship. We will continue to follow. This plan was discussed and formulated with gastroenterology at [facility], Dr. Casiano. Please call with any questions. Bigg Robles, R1 Pager: [phone] Attending Attestation: I personally interviewed the patient, performed the relevant elements of the physical exami [facility], and formulated the assessment and plan [...] She may follow-up wit h her local sfdc consultant or may follow up with me at [facility] if she wishes to consider di fferent evaluation or treatment. Gopal Casiano MD Social Sciences Instructorhydraulic rockbreaker operator Department of Gastroenterology INTERVAL HISTORY: - NAEO [...] IMAGING Reviewed outside imaging with radiologist at [facility] and CT abd and pelvis shows [...] Becca Moncada MD General Surgery, R2 Pager: [phone] [facility] Staff I saw and evaluated the patient. I agree with the findings and the plan of care as jannie hair in the resident s note. Left foot warm and well perfused. Patient pain-free. Will repe at CTA to see if there has been any thrombus progression. No urgent need for surgery on left leg at this point. Mirela Samano M.D. [facility] Vascular Surgery [address] [place] [address], [address] [phone] Email: [email or web address] Irene Aguilera MD - 03/14/2012 3:52 [...] at OSH. 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 She also had leukocytosis to 45 with a left shift, anemia, and thrombocytosis (platelets to 759). Her abdominal exam was not acute and she remained hemodynamically stable. Transferre d to [facility] for possible thrombectomy, initiated heparin therapy, [...] were obscured by overlying bowel gas. The iil-lg-[id number] left external iliac arteries appear patent with [...] arterial occlusion. Reported CT findings at [facility] are also concerning for diffuse intra-abdominal [...] studies Irene Pradhan MD Internal Medicine, PGY-1 arlos A Epps MD - 03/13/2012 1:20 PM PST EGS TRANSFER NOTE PROGRESS NOTE: Hospital Day:1 Author; CARLOS A EPPS MD Attending Physician: Bowen Bergeron History: 56 [...] for leukocytosis Ceftriaxone for UTI CARLOS A EPPS MD R2, General Surgery [facility] 03/13/2012 1:20 PM Current Facility-Administered Medications [...] mg 1 mg Intramuscular PRN Bibiana Kaiser Weberve, PA-C glucose chewable tablet 16 g 16 g Oral Q15MIN PRN Bibiana Kaiser Weberve, PA-C heparin bolus from continuous infusion (protocol) 2,800 Units 2,800 Units Intravenous NEEDED (BOLUS) Bibiana C Tiave, PA-C heparin bolus from continuous infusion (protocol) 5,600 Units 5,600 Units Intravenous NEEDED (BOLUS) Bibiana Kaiser Adams, PA-C 5,600 Units at 03/13/12 0502 heparin [...] 25 mg 25 mg Intravenous Q6H PRN IVÁN RuizC 25 mg at 03/13/12 0736 Mirela Josue [...] Becca Moncada MD General Surgery, R2 Pager: [phone] Vascular Staff I saw and evaluated the [...] at a later time. Mirela Samano M.D. [facility] Vascular Surgery [address] [place] [address], [address] [phone] Email: [email or web address] Richie Goodman MD - 06/2011 11:15 AM PSTI was present and rounded with the CONSTRUCTION ELECTRICIAN today. I interviewed and examined the patient. I reviewed the history, as documented today. I agree with the CONSTRUCTION ELECTRICIAN's assessmen t and plan. Pt is stable [...] 75 Morphine IV PRN zofran PRN Labs: [facility] reviewed Significant Results K 3.3 Mg [...] visceral and aortic thrombus transfer red from [place] last night with concerns for ischemic bowel. [...] and celiac arteries who was transferred to [facility] for management o f vascular disease and possible bowel ischemia. No evidence of bowel ischemia, bowel thicken ing likely Crohn's flare. 1. Crohn's flare: GI consult. Consider transfer to medicine for crohn's management with [facility] following 2. Multivessel occlusions/thrombii: vascular surgery [...] Her abdominal exam does not reveal peritonitis. [facility] ular surgery recommended a heparin drip given her subtherapeutic INR. Hematology will be con sulted for her leukocytosis and declining platelet count in the setting of heparin therapy. Gastroenterology is making recommendations regarding acute management of her Crohn's disease . She will no longer require ICU care and she will transfer to the general medicine service. Jf Wiseman MD FACS community outreach specialist Division of Trauma, Critical Care, and Acute Care Surgery [phone] documented in this e ncounter Plan of [...] [facility] | [address] | [place] [address] | | | SERVICES, CORE | PARK [...] [facility] | [address] | [place] [address] | | | SERVICES, CORE | PARK [...] + + + + + | [facility] | [address] | [place] [address] | | | ARON, CORE | [address] | | | + + + + + MAGNESIUM, PLASMA (03/31/2012 3:58 AM PST) + +-------+ + + + | Component | Value | Ref Range | Performed | Pathologist | | | | | At | Signature | + +-------+ + + + | MAGNESIUM,P | 1.9 | 1.8 - 2.5 mg/dL | [facility] | | | [facility] | | | [...] + + + + + | [facility] | [address] | [place] [address] | | | SERVICES, CORE | PARK [...] [facility] | [address] | [place] [address] | | | SERVICES, JANELL | PARK [...] | | + +---------+ + + | [facility] DEPARTMENT OF | | | | [...] [facility] | [address] | [place] [address] | | | SERVICES, CORE | PARK [...] [facility] | [address] | [place] [address] | | | SERVICES, CORE | PARK [...] [facility] | [address] | [place] [address] | | | SERVICES, CORE | PARK [...] + + + + + | [facility] | [address] | [place] [address] | | | SERVICES, CORE | PARK [...] | + + + + + | [facility] | [address] | [place] [address] | | | SERVICES, CORE | PARK [...] | + + + + + | [facility] | [address] | [place] [address] | | | SERVICES, CORE | KRISTEN [...] [facility] | [address] | [place] [address] | | | SERVICES, CORE | KRISTEN [...] [facility] | [address] | [place] [address] | | | SERVICESJANELL | [address] [...] + | [facility] | [address] | [place] [address] | | | [place] | | | [...] + | [facility] | [address] | [place] [address] | | | [place] | | | [...] + | [facility] | [address] | [place] [address] | | | [place] | | | [...] | + + + + + | [facility] | [address] | [place] [address] | | | SERVICES, CORE | PARK [...] [facility] | [address] | [place] [address] | | | SERVICES, CORE | KRISTEN [...] + + + + + | [facility] | [address] | [place] [address] | | | SERVICES, CORE | KRISTEN [...] [facility] | [address] | [place] [address] | | | SERVICES, CORE | KRISTEN [...] MDPathologistElectronica | | | | | | caroline Signed 03/31/2012 | | | | | | 1:18PM | | | | + + + + + + + + | Specimen | + + | | + + + + + + + | Performing | Address | City/State/Zipcode | Phone Number | | Organization | | | | + + + + + | [facility] | [address] | [place] [address] | | | PATHOLOGY | [address] | | | + [...] [facility] | [address] | [place] [address] | | | SERVICES, JANELL | [address] [...] | + + + + + | [facility] | [address] [facility] [address] | [place] [address] | | | SERVICES, CORE | KRISTEN [...] [facility] | [address] | [place], [place] | | | [facility] | [address] | [address] | | | TESTS | | | [...] [facility] | [address] | [place] [address] | | | SERVICES, CORE | PARK [...] [facility] | [address] | [place] [address] | | | SERVICES, CORE | PARK [...] | + + + + + | [facility] | [address] | [place] [address] | | | SERVICES, CORE | KRISTEN [...] [facility] | [address] | [place], [place] | | | [facility] | [address] | [address] | | | TESTS | | | [...] [facility] | [address] | [place] [address] | | | SERVICES, CORE | KRISTEN [...] LABORATORY | [address] | [place] [address] | | | SERVICES, CORE | KRISTEN [...] + + | [facility] | [address] [facility] | [place] [address] | | | SERVICES, CORE | PARK [...] [facility] | [address] | [place] [address] | | | SERVICES, JANELL | [address] | | | + + + + + X-RAY PORTABLE CHEST 1 VIEW (03/28/2012 6:28 AM PST) + + + + + + | Component | Value | Ref Range | Performed | Pathologist | | | | | At | Signature | + + + + + + | X-RAY | STUDY: [facility] CHEST 1 VIEW | | | | [...] + + + + | PRODUCT | [id number] | | [facility] | | | UNIT [...] + + + + | BLOOD | 13565 | | [facility] | | | PRODUCT [...] | + + + + + | [facility] | [address] | [place] [address] | | | PATHOLOGY | [address] [...] + + + + | PRODUCT | [id number] | | [facility] | | | UNIT [...] + + + + | BLOOD | 49131 | | [facility] | | | PRODUCT [...] DEPARTMENT OF | [address] | [place] [address] | | | PATHOLOGY | [address] [...] (H) | 60 - 99 mg/dL | [facility] - | | | GLUCOSE, | [...] + + + | [facility] | [address] | [place], [place] | | | [facility] | [address] | [address] | | | TESTS | | | [...] [facility] | [address] | [place] [address] | | | SERVICES, CORE | KRISTEN [...] view image for the detailed interpretation from ReferralMD results. | CARDIOLOGY | + + + + + + + + | Performing | Address | City/State/Zipcode | Phone Number | | Organization | | | | + + + + + | [facility] | [address] | [place], [place] | | | CARDIOLOGY | [address] | [address] | | + + + + + [...] | + + + + + | [facility] | [address] | [place] [address] | | | SERVICES, CORE | KRISTEN [...] + + + + | PRODUCT | [id number] | | [facility] | | | UNIT [...] + + + + | BLOOD | 68138 | | [facility] | | | PRODUCT [...] DEPARTMENT OF | [address] | [place] [address] | | | PATHOLOGY | [address] [...] + + + + | PRODUCT | [id number] | | [facility] | | | UNIT [...] + + + + | BLOOD | 35973 | | [facility] | | | PRODUCT [...] + + + + + | [facility] DEPARTMENT | [address] | [place] [address] | | | PATHOLOGY | [address] [...] | + + + + + | [facility] | [address] | [place] [address] | | | SERVICES, JANELL | KRISTEN [...] [facility] | [address] | [place] [address] | | | SERVICES, CORE | PARK [...] + + + + + | [facility] | [address] | [place] [address] | | | SERVICES, CORE | PARK [...] [facility] | [address] | [place] [address] | | | SERVICES, CORE | PARK [...] [facility] | [address] | [place] [address] | | | SERVICES, | [address] [...] + + + + + | [facility] | [address] | [place] [address] | | | SERVICES, | [address] [...] + + + + | PRODUCT | [id number] | | [facility] | | | UNIT [...] + + + + | BLOOD | 33143 | | [facility] | | | PRODUCT [...] + + + + + | [facility] DEPARTMENT OF | [address] | [place] [address] | | | PATHOLOGY | [address] [...] + + + + | PRODUCT | [id number] | | [facility] | | | UNIT [...] + + + + | BLOOD | 49848 | | [facility] | | | PRODUCT [...] + + + + + | [facility] DEPARTMENT | [address] | [place] [address] | | | PATHOLOGY | [address] [...] | + + + + + | [facility] | [address] | [place] [address] | | | SERVICES, CORE | KRISTEN [...] | + + + + + | [facility] | [address] | [place] [address] | | | SERVICES, CORE | KRISTEN [...] [facility] | [address] | [place] [address] | | | SERVICES, CORE | PARK [...] + + + + + | [facility] | [address] | [place] [address] | | | JANELL SHARP | [address] [...] + + | [facility] | [address] [facility] | [place] [address] | | | SERVICES, CORE | KRISTEN [...] [facility] | [address] | [place] [address] | | | SERVICES, CORE | PARK [...] | + + + + + | [facility] | [address] | [place] [address] | | | SERVICES, CORE | KRISTEN [...] | + + + + + | [facility] | [address] | [place] [address] | | | SERVICES, CORE | KRISTEN [...] [facility] | [address] | [place] [address] | | | SERVICES, CORE | PARK [...] [facility] | [address] | [place] [address] | | | SERVICES, CORE | PARK [...] + + + + + | [facility] | [address] | [place] [address] | | | SERVICES, CORE | KRISTEN [...] | + + + + + | [facility] | [address] | [place] [address] | | | SERVICES, CORE | KRISTEN [...] + + + + + | [facility] | [address] [facility] | [place] [address] | | | SERVICES, CORE | KRISTEN [...] + + + + + | [facility] | [address] | [place] [address] | | | SERVICES, CORE | PARK [...] | + + + + + | [facility] | [address] | [place] [address] | | | SERVICES, CORE | KRISTEN [...] oral, | | | | | | [id number] hrs | | | | | | [...] | | | | | | Fortino OorzcoAuthor: | | | | | | Tom [...] | + + + + + | [facility] | [address] | [place] [address] | | | SERVICES, CORE | PARK [...] | + + + + + | [facility] | [address] | [place] [address] | | | SERVICES, CORE | KRISTEN [...] | + + + + + | [facility] | [address] | [place] [address] | | | JANELL SHARP | [address] [...] + + + + + | [facility] | [address] [facility] | [place] [address] | | | SERVICES, CORE | KRISTEN [...] + + + + + | [facility] | [address] | [place] [address] | | | SERVICES, CORE | KRISTEN [...] | | | | Final | | [place] | | | | CULTURE RESULT:< 10,000 [...] + | [facility] | [address] | [place] [address] | | | [place] | | | | + + + [...] | + + + + + | [email or web address] | [address] | [place] [address] | | | SERVICES, CORE | KRISTEN [...] [facility] | [address] | [place] [address] | | | SERVICES, CORE | PARK [...] + + + + + | [facility] | [address] | [place] [address] | | | SERVICES, CORE | [address] | | | + + + + + CULTURE, BLOOD BACTI & YEAST [facility] (03/23/2012 11:22 PM PST) + + [...] | + + + + + | [facility] | [address] | [place] [address] | | | SERVICES, CORE | KRISTEN [...] view image for the detailed interpretation from ReferralMD results. | CARDIOLOGY | + + + + + + + + | Performing | Address | City/State/Zipcode | Phone Number | | Organization | | | | + + + + + | [facility] | [address] | [place], [place] | | | CARDIOLOGY | [address] | [address] | | + + + + + [...] | | + +---------+ + + | [facility] DEPARTMENT OF | | | | [...] | + + + + + | [facility] | [address] | [place] [address] | | | SERVICES, CORE | PARK [...] [facility] | [address] | [place] [address] | | | SERVICES, CORE | PARK [...] + + + + + | [facility] | [address] | [place] [address] | | | SERVICES, JANELL | [address] | | | + + + [...] | + + + + + | [facility] | [address] [facility] | [place] [address] | | | SERVICES, CORE | PARK [...] [facility] | | | | | | [facility],[address] [place] [address] | | | | | | [facility], [place] [address] | | | | | | [phone]. | | | | | | keith, Kaitlin Lau, | | | | | | , Lab. Director | | | | + + + + + + + + | Specimen | + + | Urine - Urine | + + + + + + + | Performing | Address | City/State/[facility] Cent[facility]ode | Phone Number | | Organization | | | | + + + + + | [facility] | [address] | [place], [place] | | | [facility] | | [address] | | + + + + + [...] | + + + + + | [facility] | [address] | [place] [address] | | | SERVICES, CORE | KRISTEN [...] [facility] | [address] | [place] [address] | | | ARON, JANELL | [address] | | | + + + + + CULTURE, BLOOD BACTI & YEAST [facility] (03/22/2012 7:08 PM PST) + + + [...] | + + + + + | [facility] | [address] | [place] [address] | | | SERVICES, JANELL | [address] [...] | | | | | XIN GARZON (0267) | | | | | | on 03/22/2012 4:25:06 PM | | | | + + + + + + + + | Specimen | + + | | + + + + + | Narrative | Performed At | + + + | Please click | [facility] DEPT OF | | on view image for the detailed interpretation from ReferralMD results. | CARDIOLOGY | + + + + + + + + | Performing | Address | City/State/Zipcode | Phone Number | | Organization | | | | + + + + + | [facility] | [address] [facility] | [place], [place] | | | CARDIOLOGY | [address] | [address] | | + + + + + [...] [facility] | [address] | [place], [place] | | | [facility] | [address] | [address] | | | TESTS | | | [...] (H) | 60 - 99 mg/dL | [facility] - | | | GLUCOSE, | [...] S[facility]ERS | [address] | [place], [place] | | | [facility] | [address] | [address] | | | TESTS | | | [...] + + + + + | [facility] | [address] | [place] [address] | | | SERVICES, CORE | KRISTEN [...] + + + + + | [facility] | [address] | [place] [address] | | | JANELL SHARP | PARK [...] + + + + + | [facility] | [address] [facility] | [place] [address] | | | SERVICES, JANELL | KRISTEN [...] [facility] | [address] | [place] [address] | | | SERVICES, CORE | PARK [...] | + + + + + | [facility] | [address] | [place] [address] | | | SERVICES, CORE | KRISTEN GRANT | | | + + + + + CAPILLARY BLOOD GLUCOSE (NO CHG) POC (03/22/2012 12:46 AM PST) + +---------+ [...] [facility] | [address] | [place], [place] | | | [facility] | [address] | [address] | | | TESTS | | | [...] | + + + + + | [facility] | [address] | [place] [address] | | | SERVICES, CORE | KRISTEN [...] [facility] | [address] | [place], [place] | | | [facility] | [address] | [address] | | | TESTS | | | [...] view image for the detailed interpretation from ReferralMD results. | CARDIOLOGY | + + + + + + + + | Performing | Address | City/State/Zipcode | Phone Number | | Organization | | | | + + + + + | [facility] | [address] | [place], [place] | | | CARDIOLOGY | [address] | [address] | | + + + + + [...] [facility] | [address] | [place], [place] | | | [facility] [place] [facility] | [address] | [address] | | | TESTS | | | [...] [facility] | [address] | [place] [address] | | | JANELL SHARP | KRISTEN [...] [facility] | [address] | [place] [address] | | | SERVICES, CORE | PARK [...] + + + + + | [facility] | [address] [facility] | [place] [address] | | | SERVICES, CORE | KRISTEN [...] + + + + + | [facility] | [address] | [place] [address] | | | SERVICESJANELL | [address] [...] | + + + + + | [facility] | [address] | [place] [address] | | | SERVICES, CORE | [address] | | | + + + + + 12 LEAD ECG (03/21/2012 1:28 AM PST) + + + + + + | Component | Value | Ref Range | Performed | Pathologist | | | | | At | Signature | + + + + + + | VENTRICULAR | 107 | BPM | [facility] | | | RATE | [...] GARCIA | | | | | | (7172) on 03/22/2012 | | | | | | 12:47:28 PM | | | | + + + + + + + + | Specimen | + + | | + + + + + | Narrative | Performed At | + + + | Please click | [facility] | | on view image for the detailed interpretation from ReferralMD results. | CARDIOLOGY | + + + + + + + + | Performing | Address | City/State/Zipcode | Phone Number | | Organization | | | | + + + + + | [facility] | [address] | [place], [place] | | | CARDIOLOGY | [address] | [address] | | + + + + + [...] Fuss, | | | | | | M.CorrieAuthor: Omi | | | | | | [...] | | + +---------+ + + | [facility] DEPARTMENT OF | | | | [...] (LL) | 1.8 - 2.5 mg/dL | [facility] [...] [facility] | [address] | [place] [address] | | | SERVICES, CORE | PARK [...] + + + + + | [facility] | [address] | [place] [address] | | | SERVICES, CORE | KRISTEN [...] SANDERS | [address] | [place], [place] | | | [facility] | [address] | [address] | | | TESTS | | | [...] + + + | Please click | [facility] OF | | on view image for the detailed interpretation from ReferralMD results. | CARDIOLOGY | + + + + + + + + | Performing | Address | City/State/Zipcode | Phone Number | | Organization | | | | + + + + + | [facility] | [address] | [place], [place] | | | CARDIOLOGY | [address] | [address] | | + + + + + [...] [facility] | [address] | [place], [place] | | | [facility] | [facility] | [address] | | | TESTS | | | [...] (H) | 60 - 99 mg/dL | [facility] - | | | GLUCOSE, | [...] SANDERS | [address] | [place], [place] | | | [facility] | [address] | [address] | | | TESTS | | | | + + + + + X-RAY PORTABLE CHEST 1 VIEW (03/20/2012 10:13 AM PST) + + + + + + | Component | Value | Ref Range | Performed | Pathologist | | | | | At | Signature | + + + + + + | X-RAY | STUDY: [facility] CHEST 1 VIEW | | | | [...] | | + +---------+ + + | [facility] DEPARTMENT OF | | | | [...] [facility] | [address] | [place] [address] | | | ARON, JANELL | KRISTEN [...] + + + + + | [facility] | [address] | [place] [address] | | | SERVICES, CORE | KRISTEN [...] (H) | 0.90 - 1.20 INR | [facility] | | | | | | [...] [facility] | [address] | [place] [address] | | | SERVICES, CORE | PARK [...] | + + + + + | [email or web address] | [address] | [place] [address] | | | SERVICES, CORE | [address] | | | + + + [...] [facility] | [address] | [place], [place] | | | [facility] | [address] | [address] | | | TESTS | | | [...] [facility] | [address] | [place], [place] | | | [facility] [facility] | [address] | [address] | | | TESTS | | | [...] + + + + + | [facility] | [address] | [place] [address] | | | SERVICES, JANELL | [address] | | | + + + + + CULTURE, BLOOD BACTI & YEAST WOLF (03/19/2012 6:48 PM PST) + + + [...] + + + + + | [facility] | [address] | [place] [address] | | | SERVICES, CORE | KRISTEN [...] S[facility]ERS | [address] | [place], [place] | | | [facility] | [address] | [address] | | | TESTS | | | [...] + + + | Please click | [facility] DEPT OF | | on view image for the detailed interpretation from ReferralMD results. | CARDIOLOGY | + + + + + + + + | Performing | Address | City/State/Zipcode | Phone Number | | Organization | | | | + + + + + | [facility] | [address] | [place], [place] | | | CARDIOLOGY | [address] | [address] | | + + + + + [...] - [facility] | [address] | [place], [place] | | | [facility] | [address] | [address] | | | TESTS | | | [...] | | | | | signed / Kyaa Shaikh | | | | | | [...] [facility] | [address] | [place], [place] | | | [facility] | [address] | [address] | | | TESTS | | | [...] + + + + + | [facility] | [address] | [place] [address] | | | SERVICES, CORE | KRISTEN [...] | + + + + + | [facility] | [address] | [place] [address] | | | SERVICES, CORE | PARK [...] | + + + + + | [facility] | [address] | [place] [address] | | | SERVICES, CORE | KRISTEN [...] + + | [facility] | [address] | [place] [address] | | | JANELL SHARP | KRISTEN [...] | | | | Final | | [place] | | | | CULTURE RESULT:No growth [...] + | [facility] - | [address] | [place] [address] | | | [place] | | | | + + + [...] [facility] | [address] | [place] [address] | | | SERVICES, CORE | PARK [...] + + + + + + | NON-SHAILA | Aniket (A) | None /hpf | [...] [facility] | [address] | [place] [address] | | | SERVICES, CORE | PARK [...] [facility] | [address] | [place] [address] | | | SERVICES, CORE | [address] | | | + + + + + CULTURE, BLOOD BACTI & YEAST [facility] (03/19/2012 1:10 AM PST) + + [...] | + + + + + | [facility] | [address] | [place] [address] | | | SERVICES, CORE | KRISTEN [...] + + + + + | [facility] | [address] | [place] [address] | | | SERVICES, CORE | PARK [...] (H) | 60 - 99 mg/dL | [facility] - | | | GLUCOSE, | [...] [facility] | [address] | [place], [place] | | | [facility] | [address] | [address] | | | TESTS | | | [...] + + + + + | [facility] | [address] | [place] [address] | | | ARON, CORE | KRISTEN [...] [facility] | [address] | [place], [place] | | | [facility] | [facility] | [address] | | | TESTS | | | [...] LABORATORY | [address] | [place] [address] | | | SERVICES, CORE | PARK [...] | + + + + + | [facility] | [address] | [place] [address] | | | SERVICES, CORE | KRISTEN [...] [facility] | [address] | [place], [place] | | | [facility] | [address] | [address] | | | TESTS | | | | + + + + + OPERATION RECORD (03/18/2012 11:22 AM PST) + + | Transcriptions | + + | Mirela Salgado MD - 03/18/2012 8:38 AM [facility] Date: 03/17/2012ttending | | Surgeon: Mirela Salgado M.D.Neuro Ophthalmologist(s): Sandoval | | Bennett Galvez M.D.Preoperative Diagnosis(es):Embolus, [...] | | tolerated the procedure well.MIRELA SALGADO, [facility] Hospitalessor of SurgeryDU[facility] / [id number] / | | [id number] / [id number] / T: 03/17/2012 | |was no pulse. [...] | | | |MIRELA SALGADO MD | |human resources mgr | | | |GLM / HS | |[id number] / [id number] / [id number] / | | | | | + [...] [facility] | [address] | [place] [address] | | | SERVICES, CORE | KRISTEN [...] [facility] | [address] | [place] [address] | | | SERVICES, CORE | PARK [...] | + + + + + | [facility] | [address] | [place] [address] | | | SERVICES, CORE | KRISTEN [...] | + + + + + | [facility] | [address] | [place] [address] | | | SERVICES, CORE | KRISTEN [...] | + + + + + | [facility] | [address] | [place] [address] | | | SERVICES, CORE | KRISTEN [...] | + + + + + | [facility] | [address] | [place] [address] | | | SERVICES, CORE | KRISTEN [...] + + | [facility] | [address] [address] [facility] | [place] [address] | | | JANELL SHARP | KRISTEN [...] [facility] | [address] | [place], [place] | | | [facility] | [facility] | [address] | | | TESTS | | | [...] [facility] | [address] | [place], [place] | | | [facility] | [facility] | [address] | | | TESTS | | | [...] [facility] | [address] | [place], [place] | | | [facility] | [address] | [address] | | | TESTS | | | [...] | + + + + + | [facility] | [address] [facility] [facility] | [place] [address] | | | ARON, JANELL | KRISTEN [...] + + + + + | [facility] | [address] | [place] [address] | | | ARON, JANELL | KRISTEN [...] + + + + + | [facility] | [address] | [place] [address] | | | SERVICES, JANELL | KRISTEN [...] + + + + + | [facility] | [address] | [place] [address] | | | SERVICES, CORE | KRISTEN [...] (H) | 60 - 99 mg/dL | [facility] - | | | GLUCOSE, | [...] [facility] | [address] | [place], [place] | | | [facility] | [address] | [address] | | | TESTS | | | [...] [facility] | [address] | [place] [address] | | | SERVICES, | [address] [...] [facility] | [address] | [place] [address] | | | SERVICES, | [address] [...] + + + + + | [facility] | [address] | [place] [address] | | | SERVICES, CORE | KRISTEN [...] (H) | 60 - 99 mg/dL | [facility] - | | | GLUCOSE, | | | [facility] | | | POC | | | [facility] | | | | | | OF CARE | | | | | | TESTS | | + +---------+ + + + + + | Specimen | + + | | + + + + + + + | Performing | Address | City/State/[facility] | Phone Number | | Organization | | | | + + + + + | [facility] | [address] | [place], [place] | | | [facility] | [address] | [address] | | | TESTS | | | [...] | | + +---------+ + + | [facility] DEPARTMENT OF | | | | [...] (H) | 60 - 99 mg/dL | [facility] - | | | GLUCOSE, | [...] [facility] | [address] | [place], [place] | | | [facility] | [address] | [address] | | | TESTS | | | [...] [facility] | [address] | [place] | | | [facility] | [address] | [address] | | | TESTS | | | [...] + + + + + | [facility] | [address] | [place] [address] | | | SERVICES, CORE | KRISTEN [...] [facility] | [address] | [place], [place] | | | [facility] | [address] | [address] | | | TESTS | | | [...] [facility] | [address] | [place] [address] | | | SERVICES, CORE | PARK [...] + + + + + | [facility] | [address] | [place] [address] | | | SERVICES, CORE | PARK [...] [facility] | [address] | [place] [address] | | | SERVICES, CORE | PARK [...] [facility] | [address] | [place] [address] | | | SERVICES, CORE | PARK [...] - [facility] | [address] | [place], [place] | | | [facility] | [facility] | [address] | | | TESTS | | | [...] (H) | 60 - 99 mg/dL | [facility] - | | | GLUCOSE, | [...] + + + | [facility] | [address] | [place], [place] | | | [facility] | [address] | [address] | | | TESTS | | | [...] | | + +---------+ + + | [facility] DEPARTMENT OF | | | | [...] Kirstie | | | | | | [place] | | | | + + + [...] [facility] | [address] | [place], [place] | | | [facility] | [address] | [address] | | | TESTS | | | [...] [facility] | [address] | [place], [place] | | | [facility] | [facility] | [address] | | | TESTS | | | [...] + | Performing | Address | City/State/[facility] Centercode | Phone Number | | Organization | | | | + + + + + | [facility] | [address] | [place] [address] | | | SPECIAL ARON | KRISTEN [...] [facility] | [address] | [place] [address] | | | SERVICES, SPECIAL | PARK [...] | + + + + + | [facility] | [address] | [place] [address] | | | SERVICES, SPECIAL | KRISTEN [...] | + + + + + | [facility] | [address] | [place] [address] | | | SERVICES, SPECIAL | PARK [...] | + + + + + | [facility] | [address] | [place] [address] | | | SERVICES, CORE | KRISTEN [...] | + + + + + | [facility] | [address] | [place] [address] | | | ARON, JANELL | KRISTEN [...] [facility] | [address] | [place] [address] | | | SERVICES, CORE | PARK [...] + + + + + | [facility] | [address] [facility] [facility] | [place] [address] | | | ARON, JANELL | [address] | | | + + + + + TRANSTHORACIC ECHOCARDIOGRAM, ADULT (03/15/2012 12:00 AM PST) + + + | Narrative | Performed At | + + + | | | | | | + + + + + | Procedure Note | + + | Emeka Elias - 03/15/2012 6:06 PM PST | + [...] | | | GLUCOSE, | | | [facility] | | | POC | | | [...] [facility] | [address] | [place], [place] | | | [facility] | [facility] | [address] | | | TESTS | | | [...] + + + + + | [facility] | [address] | [place] [address] | | | SERVICES, CORE | PARK [...] [facility] | [address] | [place], [place] | | | [facility] | [address] | [address] | | | TESTS | | | [...] (H) | 60 - 99 mg/dL | [facility] - | | | GLUCOSE, | [...] [facility] | [address] | [place], [place] | | | [facility] | [address] | [address] | | | TESTS | | | [...] [facility] | [address] | [place] | | | [facility] | [address] | [address] | | | TESTS | | | [...] + + + + | PRODUCT | [id number] | | [facility] | | | UNIT [...] + + + + | BLOOD | 84874 | | [facility] | | | PRODUCT [...] + + + + + | [facility] DEPARTMENT OF | [address] | [place] [address] | | | PATHOLOGY | [address] [...] + + + + | PRODUCT | [id number] | | [facility] | | | UNIT [...] + + + + | BLOOD | 63228 | | [facility] | | | PRODUCT [...] [facility] | [address] | [place] [address] | | | PATHOLOGY | [address] [...] + + + + + | [facility] | [address] | [place] [address] | | | SERVICES, CORE | KRISTEN [...] (H) | 60 - 99 mg/dL | [facility] - | | | GLUCOSE, | [...] + + + | [facility] | [address] | [place] | | | [facility] | [address] | [address] | | | TESTS | | | [...] [facility] | [address] | [place], [place] | | | [facility] | [address] | [address] | | | TESTS | | | [...] | + + + + + | [facility] | [address] | [place] [address] | | | SERVICES, CORE | PARK [...] | + + + + + | [facility] | [address] | [place] [address] | | | SERVICES, CORE | PARK [...] | + + + + + | [facility] | [address] | [place] [address] | | | SERVICES, CORE | KRISTEN [...] if | | | | | | [id number] >[id number]: | | | | | | [...] + | [facility] - | [address] | [place] [address] | | | [place] | | | [...] | + + + + + | [facility] | [address] | [place] [address] | | | SERVICES, CORE | PARK [...] [facility] | [address] | [place] [address] | | | SERVICES, CORE | PARK [...] | + + + + + | [facility] | [address] | [place] [address] | | | SERVICES, CORE | KRISTEN [...] + | [facility] | [address] | [place] [address] | | | [place] | | | [...] [facility] | [address] | [place], [place] | | | [facility] [place] [facility] | [address] | [address] | | | TESTS | | | [...] + + | [facility] | [address] [facility] | [place] [address] | | | SERVICES, CORE | PARK [...] + + + + + | [facility] | [address] | [place] [address] | | | SERVICES, CORE | KRISTEN [...] 98 | 60 - 99 mg/dL | [facility] - | | | GLUCOSE, | | [...] [facility]AND[facility] | [address] | [place], [place] | | | [facility] | [address] | [address] | | | TESTS | | | [...] | + + + + + | [facility] | [address] | [place] [address] | | | SERVICES, CORE | KRISTEN [...] gas. | | | | | | [id number] left | | | | | | [...] Davina | | | | | | [place] | | | | + + + [...] | | | | | | VENKATA MILADYS, M.D. I | | | | | [...] - [facility] | [address] | [place], [place] | | | [facility] | [address] | [address] | | | TESTS | | | [...] % | [facility] | | | | [facility],[address] | | REG UN[facility] | | | | [facility] | | PTH - [facility] | | | | [address] | | | | | | [phone].[employer]. | | | | | | Kaitlin [...] [facility] | [address] | [place], [place] | | | UNIV PTH - [facility] | | [address] | | + + + + + [...] + + + + + | [facility] | [address] | [place] [address] | | | SERVICES, CORE | KRISTEN [...] [facility] | [address] | [place] [address] | | | JANELL SAHRP | [address] | | | + [...] - [facility] | [address] | [place] | | | [facility] | [address] | [address] | | | TESTS | | | [...] [facility] | [address] | [place] [address] | | | SERVICES, CORE | PARK [...] | + + + + + | [email or web address] | [address] | [place] [address] | | | SERVICES, CORE | KRISTEN [...] [facility] | [address] | [place], [place] | | | [facility] | [address] | [address] | | | TESTS | | | [...] [facility] | [address] | [place] [address] | | | JANELL SHARP | [address] [...] [facility] | [address] | [place] [address] | | | SERVICES, CORE | KRISTEN [...] + + | [facility] | [address] [facility] | [place] [address] | | | JANELL SHARP | [address] [...] + + + + + | [facility] | [address] | [place] [address] | | | SERVICES, CORE | [address] | | | + + + + + MAGNESIUM, PLASMA (03/13/2012 3:42 AM PST) + +---------+ + + + | Component | Value | Ref Range | Performed | Pathologist | | | | | At | Signature | + +---------+ + + + | MAGNESIUM,P | 2.8 (H) | 1.8 - 2.5 mg/dL | [facility] | | | LASMA | | | [...] | + + + + + | [facility] | [address] | [place] [address] | | | SERVICES, CORE | KRISTEN [...] [facility] | [address] | [place] [address] | | | SERVICES, CORE | PARK [...] | | | | Final | | [place] | | | | CULTURE RESULT:No growth [...] + | [facility] | [address] | [place], [place] [address] | | | [place] | | | | + + + [...] | | | Final CULTURE | | [place] | | | | RESULT:Salmonella, | | [...] days. | [facility] - | | | [facility] | + + + + + + + + | Performing | Address | City/State/Zipcode | Phone Number | | Organization | | | | + + + + + | [facility] | [address] | [place] [address] | | | [place] | | | [...] | + + + + + | [facility] | [address] | [place] [address] | | | SERVICES, CORE | [address]RISTEN [...] [facility] | [address] | [place], [place] | | | [facility] | [address] | [address] | | | TESTS | | | [...] view image for the detailed interpretation from [facility] results. | CARDIOLOGY | + + + + + + + + | Performing | Address | City/State/Zipcode | Phone Number | | Organization | | | | + + + + + | [facility] | [address] | [place], [place] | | | CARDIOLOGY | [address] | [address] | | + + + + + [...] | | + +---------+ + + | [facility] DEPARTMENT OF | | | | | RADIOLOGY | | | | + +---------+ + + CULTURE, BLOOD BACTI & YEAST [facility] (03/12/2012 9:57 PM PST) + + + [...] | + + + + + | [facility] | [address] | [place] [address] | | | SERVICES, CORE | KRISTEN [...] [facility] | [address] | [place] [address] | | | SERVICES, CORE | KRISTEN [...] | + + + + + | [facility] | [address] | [place] [address] | | | SERVICES, CORE | KRISTEN [...] | + + + + + | [facility] | [address] | [place] [address] | | | SERVICES, [facility] | [address] | | | + + + + + CAPILLARY BLOOD GLUCOSE (NO CHG), POC (03/12/2012 7:19 PM PST) + +---------+ + + + | Component | Value | Ref Range | Performed | Pathologist | | | | | At | Signature | + +---------+ + + + | BLOOD | 176 (H) | 60 - 99 mg/dL | [facility] - | | | GLUCOSE, | | | [facility] | | | POC | | | [facility] | | | | | | [...] [facility] | [address] | [place], [place] | | | [facility] | [facility] | [address] | | | TESTS | | | [...] [facility] | [address] | [place] [address] | | | SERVICES, CORE | PARK [...] [facility] | [address] | [place] [address] | | | SERVICES, CORE | PARK [...] | + + + + + | [facility] | [address] | [place] [address] | | | SERVICES, | [address] [...] [facility] | [address] | [place] [address] | | | SERVICES, | [address] [...] | + + + + + | [facility] LABORATORY | [address] | [place] [address] | | | SERVICES, JANELL | KRISTEN [...] [facility] | [address] | [place] [address] | | | SERVICES, CORE | PARK [...] | + + + + + | [facility] | [address] [facility] [address] | [place] [address] | | | SERVICES, CORE | KRISTEN [...] | acetaminophen (aka TYLENOL) | Given | 12/22/20 | 650 mg | | | | [...] | | | HOURS, First dose on Tue03/12/12 | | PM PST | | | [...] | oral, DAILY, First dose on Tue 12 10:46 | | | | | [...] | | | | First dose on [facility] 03/23/12 at | | | | [...] | infusion 8 mg/hr (rounded to | | 12 3:20 | | | [...] | | | Hours, ONCE, 1 dose, [facility] 03/16/12 | | | | | [...] | | | | | 1 dose, [facility] 03/21/12 at 1515 | | PM PST [...] | | | | | NEEDED, Starting 12/11/12 at | | | | | | [...] | | | | | 1115, Until [facility] 03/30/12 at 1055, | | | [...] | | | | | 2118, Until Tue03/21/12 at | | | | | [...] | | | | | 0840, Until [facility] 03/30/12 at 1057, | | | [...] | | | oral, ONCE, 1 dose, [facility] 03/25/12 | | AM PST | [...] | | | oral, ONCE, 1 dose, [facility] 03/30/12 | | PM PST | [...] | | | oral, ONCE, 1 dose, [facility] 03/17/12 | | PM PST | | [...] +---+---+ + +-------+ +--------+---+---+ | predniSONE (aka PRUDENCE) | Given | 04/01/20 | 7.5 mg [...] | | | | | 1552, Until 03/21/12 at 1435, | | | | | [...] | | | | | NEEDED, Starting [facility] 03/16/12 at | | | | [...] | | | | First dose on [facility] 03/30/12 at | | PM PST [...] | EVERY 12 HOURS, First dose on Tue | | PM [...] | | | | | modification) on [facility] 03/23/12 at | | | | [...]
--- OUTSIDE RECORDS SUMMARY | ~2019-03-09 | XMS | Encounter Summary ---
Demographics + + + | Address | [address] | | | [place] [address] | + + + | Home Phone | | + + + | Preferred Language | Unknown | + + + | Marital Status | | + + + | Pentecostal Affiliation | Unknown | + + + | Race | Unknown | + + + | Ethnic Group | Unknown | + + + Author + + + | Author | [facility] | | | and [place] | + + + | Organization | [facility] | | [...] Team Providers + +------+ + | Care Vocational Psychologist Name | Role | Phone | + +------+ + PCP | Unavailable | + +------+ + Encounter Details +--------+ + + + + | Date | Type | Department | Care Team | Description | +--------+ + + + + | 10/09/ | Hospital | [facility] | Conversion | | | 2016 | Encounter | CENTER [facility] | Transaction, | | | | | CLINIC [address] | Provider Unknown | | | | | [place], [place] | | | | | | [address] | (Fax) | | | | | [phone] | | | +--------+ + + + [...] [address] | | | | | | [address] [facility] [address] | | | | | | [place] [address] | | | | | | [phone] | | | | | | | [...] | + + + | MACKENZIE WILLINGHAM 1955 60 years Female XR CHEST 2 [...] Conversion - 11/23/2018 9:20 PM PDT MACKENZIE [id number] years FemaleXR | | CHEST 2 VIEW [...] | | | | | at [facility];[address] [place] [address] | | | | | | vd;[place] [address] | | | | + + + + + + + + | Specimen | + + | | + + + +---------+ + + | Performing | Address | City/State/Zipcode | Phone Number | | Organization | | | | + +---------+ + + | EXTERNAL LAB | | | | + +---------+ + + External Lab: CBC (10/10/2015 2:43 PM PDT) + + +---- [...] | | | | [facility], [address] | | | | | | [place] | | | | | | [address] | | | | + + +---- + + + | RED CELL | 4.44Comment: Testing | 3.7 0 - 5.10 | EXTERNAL | | | COUNT | performed at [facility], [address] | M/u L | LAB | | | | [place], | | | | | | [place] [address] | | | | + + +---- + + + | Hgb | 9.2 (L)Comment: Testing | 11. 3 - 15.5 | EXTERNAL | | | | performed at [facility], [address] | g/d L | LAB | | | | [place], | | | | | | [place] [address] | | | | + + +---- + + + | Hematocrit, | 33.1 (L)Comment: RESULT | 34. 0 - 46.0 % | EXTERNAL | | | POC | VERIFIEDTesting | | LAB | | | | performed at [facility], [address] | | | | | | [place], | | | | | | [place] [address] | | | | + + +---- + + + | MCV | 74.6 (L)Comment: Testing | 80. 0 - 100.0 fl | EXTERNAL | | | | performed at [facility], [address] | | LAB | | | | [address] [place], | | | | | | [place] [address] | | | | + + +---- + + + | MCH | 20.7 (L)Comment: Testing | 27. 0 - 34.0 pg | EXTERNAL | | | | performed at [facility], [address] | | LAB | | | | [address], | | | | | | [place] [address] | | | | + + +---- + + + | MCHC | 27.7 (L)Comment: Testing | 32. 0 - 35.5 | EXTERNAL | | | | performed at [facility], [address] | g/d L | LAB | | | | [address], | | | | | | [place] [address] | | | | + + +---- + + + | RDW-CV | 62.6 (H)Comment: Testing | 37 - 53 fl | EXTERNAL | | | | performed at [facility], [address] | | LAB | | | | [address], | | | | | | [place] [address] | | | | + + +---- + + + | Platelet | 538 (H)Comment: Testing | 150 - 400 K/uL | EXTERNAL | | | Count | performed at [facility], [address] | | LAB | | | Plasma | [place], | | | | | | [place] [address] | | | | + + +---- + + + | MPV | 7.9Comment: Testing | fl | EXTERNAL | | | | performed at [facility], [address] | | LAB | | | | [place], | | | | | | [place] [address] | | | | + + +---- + + + | Differentia | MANUALComment: Testing | | EXTERNAL | | | l Type | performed at [facility], [address] | | LAB | | | | [place], | | | | | | [place] [address] | | | | + + +---- + + + | Nucleated | 4 (H)Comment: Testing | /10 0WBC | EXTERNAL | | | Red Blood | performed at [facility], [address] | | LAB | | | Cells | [place], | | | | | | [place] [address] | | | | + + +---- + + + | Segmented | 59Comment: Testing | % | EXTERNAL | | | Neutrophils | performed at [facility], [address] | | LAB | | | Manual | [place] [place], | | | | | | [place] [address] | | | | + + +---- + + + | % Bands | 1Comment: Testing | % | EXTERNAL | | | | performed at [facility], [address] | | LAB | | | | [address], | | | | | | [place] [address] | | | | + + +---- + + + | Lymphocytes | 33Comment: Testing | % | EXTERNAL | | | Manual | performed at [facility], [address] | | LAB | | | [address], | | | | | | [place] [address] | | | | + + +---- + + + | Monocytes | 7Comment: Testing | % | EXTERNAL | | | Manual | performed at [facility], [address] | | LAB | | | | [address], | | | | | | [place] [address] | | | | + + +---- + + + | Absolute | 11.45 (H)Comment: | 1.9 0 - 7.40 | EXTERNAL | | | Neutrophils | Testing performed at | K/u L | LAB | | | | [facility], [address] | | | | | | [place] | | | | | | [address] | | | | + + +---- + + + | Bands | 0.19Comment: Testing | 0.0 0 - 0.20 | EXTERNAL | | | Manual | performed at [facility], [address] | K/u L | LAB | | | | [place], | | | | | | [place] [address] | | | | + + +---- + + + | Absolute | 6.40 (H)Comment: Testing | 1.0 0 - 3.90 | EXTERNAL | | | Lymphocytes | performed at [facility], [address] | [address] | LAB | | | | [address] [place], | | | | | | [place] [address] | | | | + + +---- + + + | Absolute | 1.36 (H)Comment: Testing | 0.0 0 - 0.80 | EXTERNAL | | | Monocytes | performed at [facility], [address] | [address] | LAB | | | | [address] [place] [place], | | | | | | [place] [address] | | | | + + +---- + + + | Platelet | INCREASEDComment: | | EXTERNAL | | | Estimate | Testing performed at | | LAB | | | | [facility], [address] [facility] | | | | | | [place] | | | | | | [address] | | | | + + +---- + + + | RBC | 2+Comment: | | EXTERNAL | | | Morphology | ANISO1+POIK1+POLY3+HYPO2 | | LAB | | | | +MICRO1+TARGETNORMAL PLT | | | | | | MORPHTesting performed | | | | | | at [facility], [address] | | | | | | [facility] [place], | | | | | | [place] [address] | | | | | |3+ | | | | | |HYPO | | | | | |2+ | | | | | |MICRO | | | | | |1+ | | | | | |TARGET | | | | | |NORMAL PLT MORPH | | | | | |Testing performed at [facility], [facility] [address] [facility] [place] [address] | | | | | | | | | | + + +---- + + + | Differentia | SLIDE REFERRED TO | | EXTERNAL | | | l Comments | PATHOLOGIST FOR REVIEW | | LAB | | | | AND COMMENTComment: | | | | | | Testing performed at | | | | | | [facility], [address] | | | | | | [place] | | | | | | [address] | | | | + + +---- [...] | | | | | [place] [address] | | | | + + + + + + | K | 4.7Comment: SPECIMEN | 3.5 - 4.9 | EXTERNAL | | | | SLIGHTLY | mmol/L | LAB | | | | HEMOLYZEDTesting | | | | | | performed at [facility], [address] | | | | | | [place], | | | | | | [place] [address] | | | | + + + + + + | Cl | 109Comment: Testing | 99 - 109 mmol/L | EXTERNAL | | | | performed at [facility], [address] | | LAB | | | | [address], | | | | | | [place] [address] | | | | + + + + + + | CO2 | 23Comment: Testing | 23 - 32 mmol/L | EXTERNAL | | | | performed at [facility], [address] | | LAB | | | | [address], | | | | | | [place] [address] | | | | + + + + + + | Anion Gap | 13Comment: Testing | 5 - 20 mmol/L | EXTERNAL | | | | performed at [facility], [address] | | LAB | | | | [address], | | | | | | [place] [address] | | | | + + + + + + | Glucose, | 89Comment: SPECIMEN | 65 - 99 mg/dL | EXTERNAL | | | Fasting | SLIGHTLY | | LAB | | | | HEMOLYZEDTesting | | | | | | performed at [facility], [address] | | | | | | [address], | | | | | | [place] [address] | | | | + + + + + + | BUN | 21Comment: Testing | 8 - 25 mg/dL | EXTERNAL | | | | performed at [facility], [address] | | LAB | | | | [address], | | | | | | [place] [address] | | | | + + + + + + | Creatinine | 0.9Comment: SPECIMEN | 0.50 - 1.00 | EXTERNAL | | | | SLIGHTLY | mg/dL | LAB | | | | HEMOLYZEDTesting | | | | | | performed at [facility], [address] | | | | | | [address], | | | | | | [place] [address] | | | | + + + + + + | BUN/Creatin | 23Comment: Testing | | EXTERNAL | | | ine Ratio | performed at [facility], [address] | | LAB | | | | [place], | | | | | | [place] [address] | | | | + + + + + + | Calcium | 9.0Comment: Testing | 8.5 - 10.5 | EXTERNAL | | | | performed at [facility], [address] | mg/dL | LAB | | | | [place], | | | | | | [place] [address] | | | | + + + [...] | | | | | [place] [address] | | | | + + + [...]
--- OUTSIDE RECORDS SUMMARY | ~2019-03-09 | XMS | Encounter Summary ---
Demographics + + + | Address | [address] | | | [place] [address] | + + + | Home Phone | | + + + | Preferred Language | Unknown | + + + | Marital Status | | + + + | Uatsdin Affiliation | Unknown | + + + | Race | Unknown | + + + | Ethnic Group | Unknown | + + + Author + + + | Author | [facility] | | | and [place] | + + + | Organization | [facility] | | | [...] Team Providers + +------+ + | Care Turbine Assembler Name | Role | Phone | + +------+ + PCP | Unavailable | + +------+ + Encounter Details +--------+ + + + + | Date | Type | Department | Care Team | Description | +--------+ + + + + | 11/05/ | Hospital | [facility] | Gina Haines DO | Chest pain, | | 2015 - | Encounter | [facility] | [address] | unspecified chest | | | | CARE [address]LO[address] | [place] [address] | pain type; | | 11/10/ | | [address] | [phone] | Pyelonephritis; | | 2014 | | [place], [place] | | Acute nonintractable | | | | [address] | | headache, | | | | [phone] | | unspecified headache | | | [...] 010 Date of Service: 11/10/141007 Status: Signed Boom Stick Worker: Rosmery Oden MD (Physician) [facility] Service: Hospitalist Discharge Summary Date of Admission: [...] who was admitted as a transfer from [facility] due to sepsis and altered mental [...] Vancomycin and she was then transferred to [facility]. Upon arr ival she was febrile and [...] primary care physician about referral to a Maintainer Plant at [facility] for further evaluation of Chohn's Disease. Discuss [...] Follow up: Neel Fernandes MD [address] [place] [address] [place] [address] In 4 days As scheduled. Medication List [...] are the prescriptions that you need to picker/puller. You may get the following medications from [...] Service: Hospitalist Author Type: Physician Filed: 11/09/14 7097 Date of Service: 11/09/141445 Status: Signed Boom Stick Worker: Rosmery Oden MD (Physician) [facility] Service: Hospitalist Progress Note Mackenzie Willingham 59 y.o. [phone] - female Neel Fernandes (General) Hospital Day: LOS: 4 days SUBJECTIVE Patient Summary: Patient is a 59 year old female with past medical history of COPD, Crohn's Disease, HTN, Hi story of Spelnic Vein Thrombosis and Immunosuppression due to Steroids and Remicade who was admitted as a transfer from [facility] due to sepsis and altered mental [...] and Vancomycin. She was then transferred to [facility], upon arriv al she was febrile and [...] or aneurysm. LEM LIST Principal Problem: Sepsis(995.91) (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) Immunocompromised state ([facility]) ASSESSMENT & PLAN Sepsis: Stable and improved [...] (none) Author Type: Physical Therapist Filed: 11/09/14 6336 Date of Service: 11/09/145 Status: Signed Boom Stick Worker: Christel Camacho PT (Physical Therapist) 11/09/14 1415 PT Last Visit PT Received On 11/09/14 Reason for Treatment Deconditioning;Other (comment) (acute encephalopathy, debrile, chronic diarrhea-Crohn's dx ) Requires PT Follow Up Awaiting tx order Follow up PT Only? No Focus for Next Treatment Stair Training (standing HEP ) PT Eval/Reassessment Date 11/09/14 Assistance Required 1 person Chief Revenue Officer Needed No Precautions Other Precautions 2falls in [...] she was going to OP PT in [place]. She indicates her will be home for [...] Barriers to Discharge Physical Deficits Impacting Functional [facility] Ready for Discharge Yes (pt.'s will be home until school starts ) onver roshan Main, Provider Unknown - 11/09/2014 2:13 PM PDT Nurse Progress Note by Eliza Cheng RN at 11/09/141412 Author: Eliza Cheng RN Service: (none) Author Type: Registered Nurse Filed: 11/09/14 1415 Date of Service: 11/09/141412 Status: Signed Boom Stick Worker: Eliza Cheng RN (Registered Nurse) Per pt: [...] 1442 Date of Service: 11/09/14856 Status: Signed Boom Stick Worker: Ev Mas MD (Physician) [facility] Service: Infectious Disease Progress Note Hospital Day: [...] who was admitted as a transfer from [facility] due to sepsis and a ltered [...] Vancomycin. She was then transferr ed to [facility], upon arrival she was febrile and labs [...] normal glucose. PROBLEM LIST Principal Problem: Sepsis(995.91) ([facility]) Active Problems: Diarrhea Encephalopathy acute Delirium Urinary [...] 1725 Date of Service: 11/08/14841 Status: Signed Boom Stick Worker: Rosmery Oden MD (Physician) [facility] Service: Hospitalist Progress Note Mackenzie Willingham 59 y.o. [phone] - female Neel Vega Dena (General) Hospital Day: LOS: 3 days SUBJECTIVE Patient Summary: Patient is a 59 year old female with past medical history of COPD, Crohn's Disease, HTN, Hi story of Spelnic Vein Thrombosis and Immunosuppression due to Steroids and Remicade who was admitted as a transfer from [facility] due to sepsis and altered mental [...] and Vancomycin. She was then transferred to [facility], upon arriv al she was febrile and [...] Will follow MS panel results and con counter roller repeating MRI with contrast before discharge. Hyponatremia [...] Date of Service: 11/08/14 0807 Status: Signed Boom Stick Worker: Ev Mas MD (Physician) [facility] Service: Infectious Disease Progress Note Hospital Day: [...] who was admitted as a transfer from [facility] due to sepsis and a ltered [...] Vancomycin. She was then transferr ed to [facility], upon arrival she was febrile and labs [...] normal glucose. PROBLEM LIST Principal Problem: Sepsis(995.91) ([facility]) Active Problems: Diarrhea Encephalopathy acute Delirium Urinary [...] Progress Note by Anthony Correa at 11/07/14 8418 Author: Anthony Correa Service: Wound/Ostomy Care Author Type: Nurse Saw Runner Filed: 11/07/14 5219 Date of Service: 11/07/141106 Status: Signed Boom Stick Worker: Anthony Correa (Nurse Saw Runner) Patient seen today for low Marck score. [...] 1719 Date of Service: 11/07/14908 Status: Addendum Boom Stick Worker: Rosmery Oden MD (Physician) Related Notes: Original Note by Rosmery Oden MD (Physician) filed at 11/07/14 17 18 [facility] Service: Hospitalist Progress Note Mackenzie Willingham 59 y.o. [id number] 2037/2037- female Neel Fernandes (General) Hospital Day: LOS: 2 days SUBJECTIVE Patient Summary: Patient is a 59 year old female with past medical history of COPD, Crohn's Disease, HTN, Hi story of Spelnic Vein Thrombosis and Immunosuppression due to Steroids and Remicade who was admitted as a transfer from [facility] due to sepsis and altered mental [...] and Vancomycin. She was then transferred to [facility], upon arriv al she was febrile and [...] or aneurysm. LEM LIST Principal Problem: Sepsis(995.91) ([facility]) Active Problems: Encephalopathy acute Diarrhea Delirium Urinary [...] 0845 Date of Service: 11/07/14808 Status: Signed Boom Stick Worker: Raphael Turner DO (Physician) [facility] Service: Infectious Disease Progress Note Hospital Day: [...] 1700 Date of Service: 11/06/14844 Status: Addendum Boom Stick Worker: Rosmery Oden MD (Physician) Related Notes: Original Note by Rosmery Oden MD (Physician) filed at 11/06/14 16 57 [facility] Service: Hospitalist Progress Note Mackenzie Willingham 59 y.o. [phone] female Neel Fernandes (General) Hospital Day: LOS: 1 day SUBJECTIVE Patient Summary: Patient is a 59 year old female with past medical history of COPD, Crohn's Disease, HTN, Hi story of Spelnic Vein Thrombosis and Immunosuppression due to Steroids and Remicade who was admitted as a transfer from [facility] due to sepsis and altered mental status. Apparently, she developed nausea, vomiting and diarrhea for four days and was very lethargic . Her has been giving all her medications including narcotics Oxycodone Morphine sul fate. Her labs there showed leukocytosis and findings of UTI. She was started IV fluids and given one dose of Zosyn, Flagyl and Vancomycin. Upon arrival to [facility] she was febrile and lab s showed [...] Range COLOR UA YELLOW CLARITY CLEAR Specific Perry, UA 1.014 1.002 - 1.030 LEUKOCYTE ESTERASE [...] immune modulating agents and oral steroids for Bulk Folder hn's Disease. Will monitor CBC and continue [...] 11/06/1444 Date of Service: 11/06/14543 Status: Signed Boom Stick Worker: Rosita Bertrand RPH (Pharmacist) Clinical Pharmacy Note: Renal Monitoring Height: 175.3 cm Weight: 68 kg CREATININE: 0.76 (11/05/14 5462) Estimated creatinine clearance - 83.3 mL/min Pharmacy dosing for renal function per Dr. Haines. Currently there are no medications needing to be adjusted. Pharmacy will continue to monito r for changes in medication orders and in renal function and adjust accordingly per protocol . Rosita Bertrand, PharmNena 11/06/2014 5:44 AM onver roshan Main, Provider Unknown - 11/06/2014 4:46 AM PDT Nurse Progress Note by Livia Deshpande RN at 11/06/14445 Author: Lviia Deshpande RN Service: (none) Author Type: Registered Nurse Filed: 11/06/14610 Date of Service: 11/06/14445 Status: Signed Boom Stick Worker: Livia Deshpande RN (Registered Nurse) Called pts husbands phone number to complete the MRI form. Left a message with him to call [facility]. docume nted in this encounter Plan of Treatment +--------+---------+ + + + | Date | Type | Specialty | Care Team | Description | +--------+---------+ + + + | 03/27/ | Office | General Surgery | [place], | | | 2018 | Visit | | [address] | | | | | | [facility] [address] | | | | | | [place] [address] | | | | | | [phone] | | | | | | | [...] | | | | TCL, [address] | | | | | | [place] | | | | | | [address] | | | | + + + + + + | RED CELL | 3.74Comment: Testing | 3.70 - 5.10 | EXTERNAL | | | COUNT | performed at [facility], [address] | M/uL | LAB | | | | [place], | | | | | | [place] [address] | | | | + + + + + + | Hgb | 11.3Comment: Testing | 11.3 - 15.5 | EXTERNAL | | | | performed at [facility], [address] | g/dL | LAB | | | | [address] [place], | | | | | | [place] [address] | | | | + + + + + + | Hematocrit, | 35.4Comment: Testing | 34.0 - 46.0 % | EXTERNAL | | | POC | performed at [facility], [address] | | LAB | | | | [address], | | | | | | [place] [address] | | | | + + + + + + | MCV | 94.7Comment: Testing | 80.0 - 100.0 fl | EXTERNAL | | | | performed at [facility], [address] | | LAB | | | | [address], | | | | | | [place] [address] | | | | + + + + + + | MCH | 30.3Comment: Testing | 27.0 - 34.0 pg | EXTERNAL | | | | performed at [facility], [address] | | LAB | | | | [address], | | | | | | [place] [address] | | | | + + + + + + | MCHC | 32.0Comment: Testing | 32.0 - 35.5 | EXTERNAL | | | | performed at [facility], [address] | g/dL | LAB | | | | [place], | | | | | | [place] [address] | | | | + + + + + + | RDW-CV | 59.5 (H)Comment: Testing | 37 - 53 fl | EXTERNAL | | | | performed at TCL, [address] | | LAB | | | | [address], | | | | | | [place] [address] | | | | + + + + + + | Platelet | 393Comment: Testing | 150 - 400 K/uL | EXTERNAL | | | Count | performed at [facility], [address] | | LAB | | | Plasma | [address], | | | | | | [place] [address] | | | | + + + + + + | MPV | 8.4Comment: Testing | fl | EXTERNAL | | | | performed at [facility], [address] | | LAB | | | | [place], | | | | | | [place] [address] | | | | + + + + + + + + | Specimen | + + | | + + + +---------+ + + | Performing | Address | City/State/Zipcode | Phone Number | | Organization | | | | + +---------+ + + | EXTERNAL LAB | | | | + +---------+ + + Ki FLORES (11/10/2014 4:53 AM PDT) + + + [...] | | | | | performed at [facility] | | | | | | [facility];[place], [place] | | | | | | [address] | | | | + + + [...] Rad Conversion - 11/24/2018 6:38 AM PDT HISTORY:Multiple [...] | | | | T[facility], [address] [facility] | | | | | | [place] | | | | | | [address] | | | | + + + + + + | RED CELL | 3.75Comment: Testing | 3.70 - 5.10 | EXTERNAL | | | COUNT | performed at [facility], [address] | M/uL | LAB | | | | [place], | | | | | | [place] [address] | | | | + + + + + + | Hgb | 11.2 (L)Comment: Testing | 11.3 - 15.5 | EXTERNAL | | | | performed at TCL, [address] | g/dL | LAB | | | | [address], | | | | | | [place] [address] | | | | + + + + + + | Hematocrit, | 36.1Comment: Testing | 34.0 - 46.0 % | EXTERNAL | | | POC | performed at [facility], [address] | | LAB | | | | [place], | | | | | | [place] [address] | | | | + + + + + + | MCV | 96.2Comment: Testing | 80.0 - 100.0 fl | EXTERNAL | | | | performed at [facility], [address] | | LAB | | | | [address], | | | | | | [place] [address] | | | | + + + + + + | MCH | 30.0Comment: Testing | 27.0 - 34.0 pg | EXTERNAL | | | | performed at [facility], [address] | | LAB | | | | [address], | | | | | | [place] [address] | | | | + + + + + + | MCHC | 31.2 (L)Comment: Testing | 32.0 - 35.5 | EXTERNAL | | | | performed at [facility], [address] | g/dL | LAB | | | | [address], | | | | | | [place] [address] | | | | + + + + + + | RDW-CV | 58.6 (H)Comment: Testing | 37 - 53 fl | EXTERNAL | | | | performed at [facility], [address] | | LAB | | | | [address], | | | | | | [place] [address] | | | | + + + + + + | Platelet | 391Comment: Testing | 150 - 400 K/uL | EXTERNAL | | | Count | performed at [facility], [address] | | LAB | | | Plasma | [address], | | | | | | [place] [address] | | | | + + + + + + | MPV | 8.6Comment: Testing | fl | EXTERNAL | | | | performed at [facility], [address] | | LAB | | | | [address], | | | | | | [place] [address] | | | | + + + [...] | | | | | performed at [facility] | | | | | | [facility];[place], [place] | | | | | | [address] | | | | + + + [...] | | | | | [place] [address] | | | | + + + + + + | K | 3.4 (L)Comment: Testing | 3.5 - 4.9 | EXTERNAL | | | | performed at [facility], [address] | mmol/L | LAB | | | | [place], | | | | | | [place] [address] | | | | + + + + + + | Cl | 109Comment: Testing | 99 - 109 mmol/L | EXTERNAL | | | | performed at [facility], [address] | | LAB | | | | [address], | | | | | | [place] [address] | | | | + + + + + + | CO2 | 20 (L)Comment: Testing | 23 - 32 mmol/L | EXTERNAL | | | | performed at [facility], [address] | | LAB | | | | [address], | | | | | | [place] [address] | | | | + + + + + + | Anion Gap | 11Comment: Testing | 5 - 20 mmol/L | EXTERNAL | | | | performed at [facility], [address] | | LAB | | | | [address], | | | | | | [place] [address] | | | | + + + + + + | Glucose, | 74Comment: Testing | 65 - 99 mg/dL | EXTERNAL | | | Fasting | performed at [facility], [address] | | LAB | | | | [address], | | | | | | [place] [address] | | | | + + + + + + | BUN | 8Comment: Testing | 8 - 25 mg/dL | EXTERNAL | | | | performed at [facility], [address] | | LAB | | | | [address], | | | | | | [place] [address] | | | | + + + + + + | Creatinine | 0.57Comment: Testing | 0.50 - 1.00 | EXTERNAL | | | | performed at [facility], [address] | mg/dL | LAB | | | | [address], | | | | | | [place] [address] | | | | + + + [...] mg/dL | LAB | | | | [address], | | | | | | [place] [address] | | | | + + + + + + | Protein, | 5.9 (L)Comment: Testing | 6.3 - 8.2 g/dL | EXTERNAL | | | Total | performed at [facility], [address] | | LAB | | | | [address], | | | | | | [place] [address] | | | | + + + + + + | Albumin | 2.7 (L)Comment: Testing | 3.6 - 5.0 g/dL | EXTERNAL | | | | performed at [facility], [address] | | LAB | | | | [address], | | | | | | [place] [address] | | | | + + + + + + | Globulin | 3.2Comment: Testing | 1.3 - 4.9 g/dL | EXTERNAL | | | | performed at [facility], [address] | | LAB | | | | [address], | | | | | | [place] [address] | | | | + + + + + + | A/G Ratio | 0.8 (L)Comment: Testing | 1.0 - 2.4 | EXTERNAL | | | | performed at [facility], [address] | | LAB | | | | [address], | | | | | | [place] [address] | | | | + + + + + + | Bilirubin | 0.4Comment: Testing | 0.1 - 1.5 mg/dL | EXTERNAL | | | Total | performed at [facility], [address] | | LAB | | | | [address], | | | | | | [place] [address] | | | | + + + + + + | ALP, | 137 (H)Comment: Testing | 35 - 115 U/L | EXTERNAL | | | External | performed at [facility], [address] | | LAB | | | | [address], | | | | | | [place] [address] | | | | + + + + + + | AST | 13Comment: Testing | 10 - 45 U/L | EXTERNAL | | | | performed at [facility], [address] | | LAB | | | | [address], | | | | | | [place] [address] | | | | + + + + + + | ALT | 13Comment: Testing | 10 - 65 U/L | EXTERNAL | | | | performed at [facility], [address] | | LAB | | | | [address], | | | | | | [place] [address] | | | | + + + [...] | | | | | | at [facility], [address] | | | | | | [place], | | | | | | [place] [address] | | | | + + + [...] | | | | | performed at [facility] | | | | | | [facility];[place], [place] | | | | | | [address] | | | | + + + [...] [place] | | | | | | [address] | | | | + + + + + + | RED CELL | 4.07Comment: Testing | 3.70 - 5.10 | EXTERNAL | | | COUNT | performed at [facility], [address] | M/uL | LAB | | | | [address], | | | | | | [place] [address] | | | | + + + + + + | Hgb | 12.3Comment: Testing | 11.3 - 15.5 | EXTERNAL | | | | performed at [facility], [address] | g/dL | LAB | | | | [address], | | | | | | [place] [address] | | | | + + + + + + | Hematocrit, | 38.1Comment: Testing | 34.0 - 46.0 % | EXTERNAL | | | POC | performed at [facility], [address] | | LAB | | | | [address], | | | | | | [place] [address] | | | | + + + + + + | MCV | 93.6Comment: Testing | 80.0 - 100.0 fl | EXTERNAL | | | | performed at [facility], [address] | | LAB | | | | [address], | | | | | | [place] [address] | | | | + + + + + + | MCH | 30.2Comment: Testing | 27.0 - 34.0 pg | EXTERNAL | | | | performed at [facility], [address] | | LAB | | | | [address], | | | | | | [place] [address] | | | | + + + + + + | MCHC | 32.2Comment: Testing | 32.0 - 35.5 | EXTERNAL | | | | performed at [facility], [address] | g/dL | LAB | | | | [address], | | | | | | [place] [address] | | | | + + + + + + | RDW-CV | 59.1 (H)Comment: Testing | 37 - 53 fl | EXTERNAL | | | | performed at [facility], [address] | | LAB | | | | [address], | | | | | | [place] [address] | | | | + + + + + + | Platelet | 390Comment: Testing | 150 - 400 K/uL | EXTERNAL | | | Count | performed at [facility], [address] | | LAB | | | Plasma | [address], | | | | | | [place] [address] | | | | + + + + + + | MPV | 8.4Comment: Testing | fl | EXTERNAL | | | | performed at [facility], [address] | | LAB | | | | [address], | | | | | | [place] [address] | | | | + + + + + + | Differentia | AUTOMATEDComment: | | EXTERNAL | | | l Type | Testing performed at | | LAB | | | | [facility], [address] | | | | | | [place] | | | | | | [address] | | | | + + + + + + | % Segmented | 69.87Comment: Testing | % | EXTERNAL | | | | performed at [facility], [address] | | LAB | | | Neutrophils | [place], | | | | | | [place] [address] | | | | + + + + + + | % | 16.92Comment: Testing | % | EXTERNAL | | | Lymphocytes | performed at [facility], [address] | | LAB | | | | [address], | | | | | | [place] [address] | | | | + + + + + + | % Monocytes | 11.85Comment: Testing | % | EXTERNAL | | | | performed at [facility], [address] | | LAB | | | | [address], | | | | | | [place] [address] | | | | + + + + + + | % | 0.93Comment: Testing | % | EXTERNAL | | | Eosinophils | performed at [facility], [address] | | LAB | | | | [address], | | | | | | [place] [address] | | | | + + + + + + | % Basophils | 0.43Comment: Testing | % | EXTERNAL | | | | performed at [facility], [address] | | LAB | | | | [address], | | | | | | [place] [address] | | | | + + + + + + | Absolute | 12.01 (H)Comment: | 1.90 - 7.40 | EXTERNAL | | | Segmented | Testing performed at | K/uL | LAB | | | Neutrophils | [facility], [address] | | | | | | [place] | | | | | | [address] | | | | + + + + + + | Absolute | 2.91Comment: Testing | 1.00 - 3.90 | EXTERNAL | | | Lymphocytes | performed at [facility], [address] | K/uL | LAB | | | | [place], | | | | | | [place] [address] | | | | + + + + + + | Absolute | 2.04 (H)Comment: Testing | 0.00 - 0.80 | EXTERNAL | | | Monocytes | performed at [facility], [address] | K/uL | LAB | | | | [address], | | | | | | [place] [address] | | | | + + + + + + | Absolute | 0.16Comment: Testing | 0.00 - 0.50 | EXTERNAL | | | Eosinophils | performed at [facility], [address] | K/uL | LAB | | | | [address], | | | | | | [place] [address] | | | | + + + + + + | Absolute | 0.07Comment: Testing | 0.00 - 0.10 | EXTERNAL | | | Basophils | performed at [facility], [address] | K/uL | LAB | | | | [address], | | | | | | [place] [address] | | | | + + + + + + | RBC | 2+Comment: ANISONORMAL | | EXTERNAL | | | Morphology | PLT MORPHTesting | | LAB | | | | performed at [facility], [address] | | | | | | [address], | | | | | | [place] [address] | | | | | | | [...] | | | | | [place] [address] | | | | + + + [...] [place] | | | | | | [address] | | | | + + + + + + | Cl | 104Comment: Testing | 99 - 109 mmol/L | EXTERNAL | | | | performed at [facility], [address] | | LAB | | | | [place], | | | | | | [place] [address] | | | | + + + + + + | CO2 | 21 (L)Comment: Testing | 23 - 32 mmol/L | EXTERNAL | | | | performed at [facility], [address] | | LAB | | | | [place] [place], | | | | | | [place] [address] | | | | + + + + + + | Anion Gap | 12Comment: Testing | 5 - 20 mmol/L | EXTERNAL | | | | performed at [facility], [address] | | LAB | | | | [address], | | | | | | [place] [address] | | | | + + + + + + | Glucose, | 83Comment: Testing | 65 - 99 mg/dL | EXTERNAL | | | Fasting | performed at [facility], [address] | | LAB | | | | [address], | | | | | | [place] [address] | | | | + + + + + + | BUN | 8Comment: Testing | 8 - 25 mg/dL | EXTERNAL | | | | performed at [facility], [address] | | LAB | | | | [address], | | | | | | [place] [address] | | | | + + + + + + | Creatinine | 0.52Comment: Testing | 0.50 - 1.00 | EXTERNAL | | | | performed at [facility], [address] | mg/dL | LAB | | | | [address], | | | | | | [place] [address] | | | | + + + + + + | BUN/Creatin | 15Comment: Testing | | EXTERNAL | | | ine Ratio | performed at [facility], [address] | | LAB | | | | [address], | | | | | | [place] [address] | | | | + + + + + + | Calcium | 8.6Comment: Testing | 8.5 - 10.5 | EXTERNAL | | | | performed at [facility], [address] | mg/dL | LAB | | | | [address], | | | | | | [place] [address] | | | | + + + + + + | Protein, | 5.8 (L)Comment: Testing | 6.3 - 8.2 g/dL | EXTERNAL | | | Total | performed at [facility], [address] | | LAB | | | | [address], | | | | | | [place] [address] | | | | + + + + + + | Albumin | 2.9 (L)Comment: Testing | 3.6 - 5.0 g/dL | EXTERNAL | | | | performed at [facility], [address] | | LAB | | | | [address], | | | | | | [place] [address] | | | | + + + + + + | Globulin | 2.9Comment: Testing | 1.3 - 4.9 g/dL | EXTERNAL | | | | performed at [facility], [address] | | LAB | | | | [address], | | | | | | [place] [address] | | | | + + + + + + | A/G Ratio | 1.0Comment: Testing | 1.0 - 2.4 | EXTERNAL | | | | performed at [facility], [address] | | LAB | | | | [address], | | | | | | [place] [address] | | | | + + + + + + | Bilirubin | 0.7Comment: Testing | 0.1 - 1.5 mg/dL | EXTERNAL | | | Total | performed at [facility], [address] | | LAB | | | | [address] [address], | | | | | | [place] [address] | | | | + + + + + + | ALP, | 169 (H)Comment: Testing | 35 - 115 U/L | EXTERNAL | | | External | performed at [facility], [address] | | LAB | | | | [address], | | | | | | [place] [address] | | | | + + + + + + | AST | 16Comment: Testing | 10 - 45 U/L | EXTERNAL | | | | performed at [facility], [address] | | LAB | | | | [address], | | | | | | [place] [address] | | | | + + + + + + | ALT | 17Comment: Testing | 10 - 65 U/L | EXTERNAL | | | | performed at L, [address] | | LAB | | | | [address], | | | | | | [place] [address] | | | | + + + [...] | | | | | | [address] [facility], | | | | | | [place] [address] | | | | + + + [...] | | | | | [place] [address] | | | | + + + [...] | + + + | [facility] MRI BRAIN WO AND MRA HEAD 11/07/2014 [...] Conversion - 11/24/2018 6:38 AM PDT [facility] | | [...] | | | | | performed at [facility] | | | | | | [address] [facility];[place] | | | | | | [address] | | | | + + + [...] + +---------+ + + External Lab: CBC (11/07/2014 4:34 AM PDT) + + + [...] | | | | [facility], [address] | | | | | | [place] | | | | | | [address] | | | | + + + + + + | RED CELL | 4.28Comment: Testing | 3.70 - 5.10 | EXTERNAL | | | COUNT | performed at [facility], [address] | M/uL | LAB | | | | [place] [place], | | | | | | [place] [address] | | | | + + + + + + | Hgb | 13.0Comment: Testing | 11.3 - 15.5 | EXTERNAL | | | | performed at [facility], [address] | g/dL | LAB | | | | [address], | | | | | | [place] [address] | | | | + + + + + + | Hematocrit, | 40.0Comment: Testing | 34.0 - 46.0 % | EXTERNAL | | | POC | performed at [facility], [address] | | LAB | | | | [place], | | | | | | [place] [address] | | | | + + + + + + | MCV | 93.4Comment: Testing | 80.0 - 100.0 fl | EXTERNAL | | | | performed at [facility], [address] | | LAB | | | [address], | | | | | | [place] [address] | | | | + + + + + + | MCH | 30.3Comment: Testing | 27.0 - 34.0 pg | EXTERNAL | | | | performed at [facility], [address] | | LAB | | | | [address], | | | | | | [place] [address] | | | | + + + + + + | MCHC | 32.5Comment: Testing | 32.0 - 35.5 | EXTERNAL | | | | performed at [facility], [address] | g/dL | LAB | | | | [address], | | | | | | [place] [address] | | | | + + + + + + | RDW-CV | 57.8 (H)Comment: Testing | 37 - 53 fl | EXTERNAL | | | | performed at [facility], [address] | | LAB | | | | [address], | | | | | | [place] [address] | | | | + + + + + + | Platelet | 403 (H)Comment: Testing | 150 - 400 K/uL | EXTERNAL | | | Count | performed at [facility], [address] | | LAB | | | Plasma | [address], | | | | | | [place] [address] | | | | + + + + + + | MPV | 8.4Comment: Testing | fl | EXTERNAL | | | | performed at [facility], [address] | | LAB | | | | [address], | | | | | | [place] [address] | | | | + + + + + + | Differentia | AUTOMATEDComment: | | EXTERNAL | | | l Type | Testing performed at | | LAB | | | | [facility], [address] | | | | | | [place] | | | | | | [address] | | | | + + + + + + | % Segmented | 69.85Comment: Testing | % | EXTERNAL | | | | performed at [facility], [address] | | LAB | | | Neutrophils | [address], | | | | | | [place] [address] | | | | + + + + + + | % | 17.96Comment: Testing | % | EXTERNAL | | | Lymphocytes | performed at [facility], [address] | | LAB | | | | [address], | | | | | | [place] [address] | | | | + + + + + + | % Monocytes | 11.10Comment: Testing | % | EXTERNAL | | | | performed at [facility], [address] | | LAB | | | | [address], | | | | | | [place] [address] | | | | + + + + + + | % | 0.77Comment: Testing | % | EXTERNAL | | | Eosinophils | performed at [facility], [address] | | LAB | | | [address], | | | | | | [place] [address] | | | | + + + + + + | % Basophils | 0.32Comment: Testing | % | EXTERNAL | | | | performed at [facility], [address] | | LAB | | | | [address], | | | | | | [place] [address] | | | | + + + + + + | Absolute | 10.28 (H)Comment: | 1.90 - 7.40 | EXTERNAL | | | Segmented | Testing performed at | K/uL | LAB | | | Neutrophils | [facility], [address] | | | | | | [place] | | | | | | [address] | | | | + + + + + + | Absolute | 2.64Comment: Testing | 1.00 - 3.90 | EXTERNAL | | | Lymphocytes | performed at [facility], [address] | K/uL | LAB | | | | [address] [place], | | | | | | [place] [address] | | | | + + + + + + | Absolute | 1.63 (H)Comment: Testing | 0.00 - 0.80 | EXTERNAL | | | Monocytes | performed at [facility], [address] | K/uL | LAB | | | | [address], | | | | | | [place] [address] | | | | + + + + + + | Absolute | 0.11Comment: Testing | 0.00 - 0.50 | EXTERNAL | | | Eosinophils | performed at [facility], [address] | K/uL | LAB | | | | [address], | | | | | | [place] [address] | | | | + + + + + + | Absolute | 0.05Comment: Testing | 0.00 - 0.10 | EXTERNAL | | | Basophils | performed at [facility], [address] | K/uL | LAB | | | | [address], | | | | | | [place] [address] | | | | + + + [...] | | | | | [place] [address] | | | | + + + + + + | K | 3.1 (L)Comment: Testing | 3.5 - 4.9 | EXTERNAL | | | | performed at [facility], [address] | mmol/L | LAB | | | | [address], | | | | | | [place] [address] | | | | + + + + + + | Cl | 96 (L)Comment: Testing | 99 - 109 mmol/L | EXTERNAL | | | | performed at [facility], [address] | | LAB | | | [address], | | | | | | [place] [address] | | | | + + + + + + | CO2 | 24Comment: Testing | 23 - 32 mmol/L | EXTERNAL | | | | performed at [facility], [address] | | LAB | | | | [address], | | | | | | [place] [address] | | | | + + + + + + | Anion Gap | 11Comment: Testing | 5 - 20 mmol/L | EXTERNAL | | | | performed at [facility], [address] | | LAB | | | | [address], | | | | | | [place] [address] | | | | + + + + + + | Glucose, | 102 (H)Comment: Testing | 65 - 99 mg/dL | EXTERNAL | | | Fasting | performed at [facility], [address] | | LAB | | | | [place], | | | | | | [place] [address] | | | | + + + + + + | BUN | 6 (L)Comment: Testing | 8 - 25 mg/dL | EXTERNAL | | | | performed at [facility], [address] | | LAB | | | | [address], | | | | | | [place] [address] | | | | + + + + + + | Creatinine | 0.49 (L)Comment: Testing | 0.50 - 1.00 | EXTERNAL | | | | performed at [facility], [address] | mg/dL | LAB | | | | [address], | | | | | | [place] [address] | | | | + + + + + + | BUN/Creatin | 12Comment: Testing | | EXTERNAL | | | ine Ratio | performed at [facility], [address] | | LAB | | | | [place], | | | | | | [place] [address] | | | | + + + + + + | Calcium | 8.5Comment: Testing | 8.5 - 10.5 | EXTERNAL | | | | performed at [facility], [address] | mg/dL | LAB | | | | [place], | | | | | | [place] [address] | | | | + + + + + + | Protein, | 6.1 (L)Comment: Testing | 6.3 - 8.2 g/dL | EXTERNAL | | | Total | performed at [facility], [address] | | LAB | | | | [address], | | | | | | [place] [address] | | | | + + + + + + | Albumin | 3.0 (L)Comment: Testing | 3.6 - 5.0 g/dL | EXTERNAL | | | | performed at [facility], [address] | | LAB | | | | [address], | | | | | | [place] [address] | | | | + + + + + + | Globulin | 3.1Comment: Testing | 1.3 - 4.9 g/dL | EXTERNAL | | | | performed at [facility], [address] | | LAB | | | | [address], | | | | | | [place] [address] | | | | + + + + + + | A/G Ratio | 1.0Comment: Testing | 1.0 - 2.4 | EXTERNAL | | | | performed at [facility], [address] | | LAB | | | | [address], | | | | | | [place] [address] | | | | + + + + + + | Bilirubin | 0.7Comment: Testing | 0.1 - 1.5 mg/dL | EXTERNAL | | | Total | performed at [facility], [address] | | LAB | | | | [address], | | | | | | [place] [address] | | | | + + + + + + | ALP, | 208 (H)Comment: Testing | 35 - 115 U/L | EXTERNAL | | | External | performed at [facility], [address] | | LAB | | | | [address] [place], | | | | | | [place] [address] | | | | + + + + + + | AST | 21Comment: Testing | 10 - 45 U/L | EXTERNAL | | | | performed at [facility], [address] | | LAB | | | | [address], | | | | | | [place] [address] | | | | + + + + + + | ALT | 21Comment: Testing | 10 - 65 U/L | EXTERNAL | | | | performed at [facility], [address] | | LAB | | | | [address], | | | | | | [place] [address] | | | | + + + [...] | | | | | | at [facility], [address] | | | | | | [place], | | | | | | [place] [address] | | | | + + + [...] | Testing performed | | | at [facility], [address] [place] [address] | | + + + + +---------+ [...] LAB | | | | performed at [facility] | | | | | | [place] | | | | | | [address] | | | | + + + + + + | CRYPTO AG | Comment: ACCESSION NO. | | EXTERNAL | | | CSF | | | LAB | | | | [id number] | | | | | | SOURCE | | | | | | CEREBROSPINAL | | | | | | FLUIDRESULT | | | | | | | | | | | | NEGATIVETesting | | | | | | performed at [facility] | | | | | | [facility], | | | | | | [address], [facility] | | | | | | [address] | | | | + + + + + + | CRYPTOCOCCU | REPORT STATUS | | EXTERNAL | | | S AG, CSF | FINAL | | LAB | | | | 11/08/2014Comment: | | | | | | Testing performed at | | | | | | [facility] | | | | | | [place], [address], | | | | | | [facility] [address] | | | | + + + [...] | EXTERNAL LAB | | performed at [facility];[address] [facility];[place] [address] 027 NAP1 BI | | | 027 NAP1 BI PRESUMPTIVE NEGATIVE | | | Detection of 027 NAP1 BI strains of C. difficile is presumptive and | | | for epidemiological purposes and not intended to guide or monitor | | | treatment for C. difficile infections. Testing performed at [facility];[address] | | | [facility];[place] [address] | | + + + + +---------+ [...] TESTING. | | | Testing performed at [facility], [address] | | | [place] [address] | | + + + + +---------+ [...] EXTERNAL LAB | | Testing performed at [facility];[address] [place] [address];[place] [address] RESULT | | | NEGATIVE Reference range: [...] MICROLITER OF PATIENT SPECIMEN. Testing performed at [facility], | | | [address] [facility] [address] COMMENT | | | SEE BELOW THIS TEST WAS DEVELOPED AND ITS | | | PERFORMANCE CHARACTERISTICS DETERMINED BY [facility]. THE U.S. FOOD AND | | | DRUG ADMINISTRATION (FDA) HAS NOT APPROVED OR CLEARED THIS TEST. | | | HOWEVER, FDA APPROVAL OR CLEARANCE IS CURRENTLY NOT REQUIRED FOR | | | CLINICAL USE OF THIS TEST. THE RESULTS ARE NOT INTENDED TO BE USED | | | THE SOLE MEANS FOR CLINICAL DIAGNOSIS OR PATIENT MANAGEMENT | | | DECISIONS. [facility] IS AUTHORIZED UNDER CLINICAL LABORATORY IMPROVEMENT | | | AMENDMENTS (CLIA) TO PERFORM HIGH-COMPLEXITY TESTING. Testing | | | performed at [facility], [address] [facility] [address] | | + + + + +---------+ [...] | Testing performed at | | | [facility];[address] [facility];[place] [address] CULTURE | | | NO GROWTH | | | Testing performed at [facility], [address] [facility] [place] | | | [place] [address] | | + + + + +---------+ [...] EXTERNAL LAB | | Testing performed at [facility];[address] [place] [address];[place] [address] ENTEROVIRUS | | | PCR NEGATIVE INTENDED USE: THE | | | Fliqq XPERT EV ASSAY IS A REVERSE EXPLORATION ENGINEER POLYMERASE CHAIN | | | REACTION (RT-PCR) USING THE Satya Inti DharmaERT DX SYSTEM FOR THE | | | [...] RT-PCR Testing | | | performed at [facility], [address] [place] [address] | | + + + + +---------+ [...] EXTERNAL LAB | | Testing performed at [facility];[address] [place] [address];[place] [address] SOURCE | | | SEE BELOW CEREBROSPINAL FLUID | | | Testing performed by [place] [address] HSV DNA Type 1 | | | NOT DETECTED Testing performed at [facility], [address] | | | [place] [address] HSV DNA Type 2 | | | NOT DETECTED Testing performed at [facility], [address] [facility], | | | [place] [address] COMMENT | | | SEE BELOW A [...] THE DIAGNOSIS OF DISEASE. Testing performed at [facility], [address] | | | [address] [facility] [address] COMMENT | | | SEE BELOW THIS TEST WAS DEVELOPED AND ITS | | | PERFORMANCE CHARACTERISTICS DETERMINED BY [facility]. THE U.S. FOOD AND | | | DRUG ADMINISTRATION (FDA) HAS NOT APPROVED OR CLEARED THIS TEST. | | | HOWEVER, FDA APPROVAL OR CLEARANCE IS CURRENTLY NOT REQUIRED FOR | | | CLINICAL USE OF THIS TEST. THE RESULTS ARE NOT INTENDED TO BE USED | | | THE SOLE MEANS FOR CLINICAL DIAGNOSIS OR PATIENT MANAGEMENT | | | DECISIONS. [facility] IS AUTHORIZED UNDER CLINICAL LABORATORY IMPROVEMENT | | | AMENDMENTS (CLIA) TO PERFORM HIGH-COMPLEXITY TESTING. Testing | | | performed at [facility], [address] [facility] [address] | | + + + + +---------+ [...] EXTERNAL LAB | | Testing performed at [facility] [address];[place] [address] APPEARANCE | | | CLEAR Testing performed at | | | [facility];[address];[place] [address] Tube Number, CSF | | | 3 Testing performed at [facility];[address] | | [address];[place] [address] CSF RBC | | | 7 High Testing performed at [facility];[address] | | [address];[place] [address] CSF WBC | | | 2 Testing performed at [facility] [address];[place], [place] | | | [address] | | + + + + +---------+ + + | Performing | Address | City/State/Zipcode | Phone Number | | Organization | | | | + +---------+ + + | EXTERNAL LAB | | | | + +---------+ + + VDRL, CSF (11/06/2014 3:41 PM PDT) + + | Specimen | + + | | + + + + + | Narrative | Performed At | + + + | VDRL Quant, CSF NON REACTIVE Testing | EXTERNAL LAB | | performed at [address] [address] | | + + + + +---------+ [...] EXTERNAL LAB | | Testing performed at [facility];[address] [place] [address];[place] [address] | | + + + + +---------+ [...] EXTERNAL LAB | | Testing performed at [facility];[address] [facility];[place] [address] | | + + + + +---------+ [...] LAB | | | | performed at [facility];[address] | | | | | | [address] [facility];[place], [place] | | | | | | [address] | | | | + + + [...] | | | | | DETERMINED BY [facility] | | | | | | LABORATOR[facility].SEE | | | | | | COMPLIANCE STATEMENT B: | | | | | | Pact/CSTesting | | | | | | performed at [facility], [address] | | | | | | [facility] | | | | | | [facility] [address] | | | | + + + [...] LAB | | | | performed at [employer] [facility] | | | | [facility] [employer], [address] | | | | | | [place] | | | | | | [address] | | | | + + + [...] | | | | | performed at [facility] | | | | | | [address], [address] | | | | | | [place] | | | | | | [address] | | | | + + + + + + + + | Specimen | + + | | + + + +---------+ + + | Performing | Address | City/State/[facility] | Phone Number | | [...] mental status, | | | transferred from [facility] on November 05, 2014. PRE | [...] | | | possibility of "sound alike" dehydrator tender errors, addition and/or | | | deletions [...] altered mental | | status, transferred from [facility] on November 05, 2014. PRE PROCEDURAL [...] The possibility of "sound alike" | | dehydrator tender errors, addition and/or deletions may occur. If [...] system. The possibility of "sound a like" dehydrator tender errors, addition and/or deletions may occur. If [...] IMMUNOSUPPRESSION. Testing | | | performed at [employer], [address] [place] [address] | | | [place] [address] | | + + + + +---------+ [...] | | | THIS TEST IN THE [facility] | | | | | | LABORATORY TEST | | | | | | DIRECTORY(Pact).T | | | | | | esting performed at | | | | | | [facility], [address] [facility], | | | | | | [facility] [address] | | | | + + + + + + | IGG, CSF | 5.1Comment: Testing | 0.0 - 6.0 mg/dL | EXTERNAL | | | | performed at [facility], [address] | | LAB | | | | [facility] | | | | | | [place] [address] | | | | + + + + + + | Albumin, | 32Comment: Testing | 0 - 35 mg/dL | EXTERNAL | | | CSF | performed at [facility], [address] | | LAB | | | | [facility] | | | | | | [facility] [address] | | | | + + + + + + | Albumin | 11.7 (H)Comment: Testing | 0.0 - 9.0 ratio | EXTERNAL | | | Index | performed at [facility], [address] | | LAB | | | | [facility] | | | | | | [facility] [address] | | | | + + + + + + | CSF | 0.16Comment: Testing | 0.09 - 0.25 | EXTERNAL | | | IgG/Albumin | performed at [facility], [address] | ratio | LAB | | | Ratio | [facility] | | | | | | [facility] [address] | | | | + + + + + + | IgG Index | 0.46Comment: Testing | 0.28 - 0.66 | EXTERNAL | | | | performed at [facility], [address] | ratio | LAB | | | | [facility] | | | | | | [facility] [address] | | | | + + + + + + | CSF | NEGATIVEComment: | | EXTERNAL | | | Oligoclonal | REFERENCE RANGE: | | LAB | | | Bands | NEGATIVETesting | | | | | | performed at [facility], [address] | | | | | | [address] | | | | | | [facility] [address] | | | | + + + [...] [address] | | | | | | [address] [facility] | | | | | | [facility] [address] | | | | + + + + + + | IGG SYNTH | <0.0 (L)Comment: | 0.0 - 8.0 mg/d | EXTERNAL | | | RATE | REFERENCE RANGE: | | LAB | | | | <=8.0Testing performed | | | | | | at [facility], [address] [facility] | | | | | | [facility] | | | | | | [address] | | | | + + + + + + | Albumin | 2,730 (L)Comment: | 3,500 - 5,200 | EXTERNAL | | | | Testing performed at | mg/dL | LAB | | | | [facility], [address] [facility] [place], | | | | | | [facility] [address] | | | | + + + [...] - 11/24/2018 6:38 AM PDT MACKENZIE GIL ABDOMEN ACUTE | | SERIES11/06/2014 7:17 AM [...] | Testing performed | | | at [facility], [address] [place] [address] | | + + + + +---------+ [...] GROWTH | | | Testing performed at [facility], | | | [address] [place] [address] | | + + + + +---------+ [...] | | | | | [place] [address] | | | | + + + + + + | Clarity | CLEARComment: Testing | | EXTERNAL | | | | performed at [facility], [address] | | LAB | | | | [place], | | | | | | [place] [address] | | | | + + + + + + | Specific | 1.014Comment: Testing | 1.002 - 1.030 | EXTERNAL | | | Perry | performed at [facility], [address] | | LAB | | | [address], | | | | | | [place] [address] | | | | + + + + + + | Leukocyte | TRACE (A)Comment: | | EXTERNAL | | | Esterase, | Testing performed at | | LAB | | | Urine | [facility], [address] | | | | | | [place] | | | | | | [address] | | | | + + + + + + | Nitrite, | NEGATIVEComment: Testing | | EXTERNAL | | | Urine | performed at [facility], [address] | | LAB | | | | [address] [place] [place], | | | | | | [place] [address] | | | | + + + + + + | Urobilinoge | 0.2Comment: Testing | mg/dL | EXTERNAL | | | n, Urine | performed at [facility], [address] | | LAB | | | | [place], | | | | | | [place] [address] | | | | + + + + + + | Protein, | NEGATIVEComment: Testing | mg/dL | EXTERNAL | | | Urine | performed at [facility], [address] | | LAB | | | | [address] [place] [place], | | | | | | [place] [address] | | | | + + + + + + | pH, Urine | 7.0Comment: Testing | 5.0 - 8.0 | EXTERNAL | | | | performed at [facility], [address] | | LAB | | | | [place], | | | | | | [place] [address] | | | | + + + + + + | Blood, | SMALL (A)Comment: | | EXTERNAL | | | Urine | Testing performed at | | LAB | | | | [facility], [address] [facility] | | | | | | [place] | | | | | | [address] | | | | + + + + + + | Ketones | NEGATIVEComment: Testing | mg/dL | EXTERNAL | | | | performed at [facility], [address] | | LAB | | | | [address], | | | | | | [place] [address] | | | | + + + + + + | Bilirubin, | NEGATIVEComment: Testing | | EXTERNAL | | | Urine | performed at [facility], [address] | | LAB | | | | [address], | | | | | | [place], [place] [address] | | | | + + + + + + | Glucose, | NEGATIVEComment: Testing | mg/dL | EXTERNAL | | | Urine | performed at [facility], [address] | | LAB | | | | [address], | | | | | | [place] [address] | | | | + + + + + + | WBC, UA | 16-25Comment: Testing | 0 - 5 /hpf | EXTERNAL | | | | performed at [facility], [address] | | LAB | | | | [address], | | | | | | [place] [address] | | | | + + + + + + | RBC, UA | 6-10Comment: Testing | 0 - 5 /hpf | EXTERNAL | | | | performed at [facility], [address] | | LAB | | | | [address] [place], | | | | | | [place] [address] | | | | + + + + + + | Bacteria, | NONE SEENComment: | | EXTERNAL | | | UA | CULTURE TO FOLLOWTesting | | LAB | | | | performed at [facility], [address] | | | | | | [address], | | | | | | [place] [address] | | | | + + + + + + | Epithelial | 26-50Comment: Testing | /lpf | EXTERNAL | | | Cells | performed at [facility], [address] | | LAB | | | | [address], | | | | | | [place] [address] | | | | + + + + + + | HYALINE | 0-2Comment: Testing | | EXTERNAL | | | CASTS UA | performed at [facility], [address] | | LAB | | | | [place] [place], | | | | | | [place] [address] | | | | + + + [...] MEDIPORT | | | Testing performed at [facility];[address] | | | [place] [address] CULTURE | | | NO GROWTH | | | Testing performed at [facility], [address] [facility] [place], [place] | | | [address] | | + + + + +---------+ [...] LAC | | | Testing performed at [facility];[address] | | | [address] [facility];[place] [address] CULTURE | | | NO GROWTH | | | Testing performed at [facility], [address] [facility] [place] [place], [place] | | | [address] | | + + + + +---------+ [...] | | | | | performed at [facility];[address] | | | | | | [facility];[place], [place] | | | | | | [address] | | | | + + + [...] | | | | [facility], [address] [facility] | | | | | | [place] | | | | | | [address] | | | | + + + + + + | RED CELL | 4.38Comment: Testing | 3.70 - 5.10 | EXTERNAL | | | COUNT | performed at [facility], [address] | M/uL | LAB | | | | [address], | | | | | | [place] [address] | | | | + + + + + + | Hgb | 13.1Comment: Testing | 11.3 - 15.5 | EXTERNAL | | | | performed at [facility], [address] | g/dL | LAB | | | | [address], | | | | | | [place] [address] | | | | + + + + + + | Hematocrit, | 41.2Comment: Testing | 34.0 - 46.0 % | EXTERNAL | | | POC | performed at [facility], [address] | | LAB | | | | [address], | | | | | | [place] [address] | | | | + + + + + + | MCV | 94.0Comment: Testing | 80.0 - 100.0 fl | EXTERNAL | | | | performed at [facility], [address] | | LAB | | | | [address], | | | | | | [place] [address] | | | | + + + + + + | MCH | 29.9Comment: Testing | 27.0 - 34.0 pg | EXTERNAL | | | | performed at [facility], [address] | | LAB | | | | [address], | | | | | | [place] [address] | | | | + + + + + + | MCHC | 31.8 (L)Comment: Testing | 32.0 - 35.5 | EXTERNAL | | | | performed at [facility], [address] | g/dL | LAB | | | | [address], | | | | | | [place] [address] | | | | + + + + + + | RDW-CV | 59.5 (H)Comment: Testing | 37 - 53 fl | EXTERNAL | | | | performed at [facility], [address] | | LAB | | | | [address], | | | | | | [place] [address] | | | | + + + + + + | Platelet | 436 (H)Comment: Testing | 150 - 400 K/uL | EXTERNAL | | | Count | performed at [facility], [address] | | LAB | | | Plasma | [address], | | | | | | [place] [address] | | | | + + + + + + | MPV | 8.2Comment: Testing | fl | EXTERNAL | | | | performed at [facility], [address] | | LAB | | | | [address], | | | | | | [place] [address] | | | | + + + + + + | Differentia | MANUALComment: Testing | | EXTERNAL | | | l Type | performed at [facility], [address] | | LAB | | | | [address], | | | | | | [place] [place] [address] | | | | + + + + + + | Segmented | 69Comment: Testing | % | EXTERNAL | | | Neutrophils | performed at [facility], [address] | | LAB | | | Manual | [address], | | | | | | [place] [address] | | | | + + + + + + | Lymphocytes | 17Comment: Testing | % | EXTERNAL | | | Manual | performed at [facility], [address] | | LAB | | | | [address] [place], | | | | | | [place] [address] | | | | + + + + + + | Monocytes | 14Comment: Testing | % | EXTERNAL | | | Manual | performed at [facility], [address] | | LAB | | | | [place] [place], | | | | | | [place] [address] | | | | + + + + + + | Absolute | 17.00 (H)Comment: | 1.90 - 7.40 | EXTERNAL | | | Neutrophils | Testing performed at | K/uL | LAB | | | | [facility], [address] | | | | | | [place] | | | | | | [address] | | | | + + + + + + | Absolute | 4.19 (H)Comment: Testing | 1.00 - 3.90 | EXTERNAL | | | Lymphocytes | performed at [facility], [address] | [address] | LAB | | | | [address] [place], | | | | | | [place] [address] | | | | + + + + + + | Absolute | 3.45 (H)Comment: Testing | 0.00 - 0.80 | EXTERNAL | | | Monocytes | performed at [facility], [address] | [address] | LAB | | | | [address], | | | | | | [place] [address] | | | | + + + + + + | RBC | 2+Comment: ANISONORMAL | | EXTERNAL | | | Morphology | PLT MORPHTesting | | LAB | | | | performed at [facility], [address] | | | | | | [address], | | | | | | [place] [address] | | | | | | | [...] | | | | | [place] [address] | | | | + + + [...] EXTERNAL | | | | performed at [facility], [address] | | LAB | | | | [place], | | | | | | [place] [address] | | | | + + + [...] | | | | | [place] [address] | | | | + + + + + + | K | 3.5Comment: Testing | 3.5 - 4.9 | EXTERNAL | | | | performed at [facility], [address] | mmol/L | LAB | | | | [place] [place], | | | | | | [place] [address] | | | | + + + + + + | Cl | 95 (L)Comment: Testing | 99 - 109 mmol/L | EXTERNAL | | | | performed at [facility], [address] | | LAB | | | | [address], | | | | | | [place] [address] | | | | + + + + + + | CO2 | 25Comment: Testing | 23 - 32 mmol/L | EXTERNAL | | | | performed at [facility], [address] | | LAB | | | | [address], | | | | | | [place] [address] | | | | + + + + + + | Anion Gap | 12Comment: Testing | 5 - 20 mmol/L | EXTERNAL | | | | performed at [facility], [address] | | LAB | | | | [address], | | | | | | [place] [address] | | | | + + + + + + | Glucose, | 120 (H)Comment: Testing | 65 - 99 mg/dL | EXTERNAL | | | Fasting | performed at [facility], [address] | | LAB | | | [address], | | | | | | [place] [address] | | | | + + + + + + | BUN | 8Comment: Testing | 8 - 25 mg/dL | EXTERNAL | | | | performed at [facility], [address] | | LAB | | | | [address], | | | | | | [place] [address] | | | | + + + + + + | Creatinine | 0.45 (L)Comment: Testing | 0.50 - 1.00 | EXTERNAL | | | | performed at [facility], [address] | mg/dL | LAB | | | | [address], | | | | | | [place] [address] | | | | + + + + + + | BUN/Creatin | 18Comment: Testing | | EXTERNAL | | | ine Ratio | performed at [facility], [address] | | LAB | | | [address], | | | | | | [place] [address] | | | | + + + + + + | Calcium | 8.7Comment: Testing | 8.5 - 10.5 | EXTERNAL | | | | performed at [facility], [address] | mg/dL | LAB | | | | [address], | | | | | | [place] [address] | | | | + + + + + + | Protein, | 6.8Comment: Testing | 6.3 - 8.2 g/dL | EXTERNAL | | | Total | performed at [facility], [address] | | LAB | | | | [address], | | | | | | [place] [address] | | | | + + + + + + | Albumin | 3.1 (L)Comment: Testing | 3.6 - 5.0 g/dL | EXTERNAL | | | | performed at [facility], [address] | | LAB | | | | [address], | | | | | | [place] [address] | | | | + + + + + + | Globulin | 3.7Comment: Testing | 1.3 - 4.9 g/dL | EXTERNAL | | | | performed at [facility], [address] | | LAB | | | | [place], | | | | | | [place] [address] | | | | + + + + + + | A/G Ratio | 0.8 (L)Comment: Testing | 1.0 - 2.4 | EXTERNAL | | | | performed at [facility], [address] | | LAB | | | | [address], | | | | | | [place] [address] | | | | + + + + + + | Bilirubin | 0.8Comment: Testing | 0.1 - 1.5 mg/dL | EXTERNAL | | | Total | performed at [facility], [address] | | LAB | | | | [address], | | | | | | [place] [address] | | | | + + + + + + | ALP, | 214 (H)Comment: Testing | 35 - 115 U/L | EXTERNAL | | | External | performed at [facility], [address] | | LAB | | | | [address], | | | | | | [place] [address] | | | | + + + + + + | AST | 26Comment: Testing | 10 - 45 U/L | EXTERNAL | | | | performed at [facility], [address] | | LAB | | | | [address], | | | | | | [place] [address] | | | | + + + + + + | ALT | 29Comment: Testing | 10 - 65 U/L | EXTERNAL | | | | performed at [facility], [address] | | LAB | | | | [address], | | | | | | [place] [address] | | | | + + + [...] | | | | | | at [facility], [address] | | | | | | [address], | | | | | | [place] [address] | | | | + + + [...] K/uL | LAB | | | | [facility] | | | | [address];[place] [address] | | | | + + + + + -+ | RED CELL | 4.36Comment: Testing | 3.70 - 5.10 | EXTERNAL | | | COUNT | performed at [facility];[address] | M/uL | LAB | | | | [address];[place] | | | | | | [address] | | | | + + + + + -+ | Hgb | 13.1Comment: Testing | 11.3 - 15.5 | EXTERNAL | | | | performed at [facility];[address] | g/dL | LAB | | | | [address] [place] | | | | | | [address] | | | | + + + + + -+ | Hematocrit, | 40.2Comment: Testing | 34.0 - 46.0 % | EXTERNAL | | | POC | performed at [facility];[address] | | LAB | | | | [address] [place] | | | | | | [address] | | | | + + + + + -+ | MCV | 92.3Comment: Testing | 80.0 - 100.0 fl | EXTERNAL | | | | performed at [facility];[address] | | LAB | | | | [address];[place] | | | | | | [address] | | | | + + + + + -+ | MCH | 30.2Comment: Testing | 27.0 - 34.0 pg | EXTERNAL | | | | performed at [facility];[address] | | LAB | | | | [address];[place] | | | | | | [address] | | | | + + + + + -+ | MCHC | 32.7Comment: Testing | 32.0 - 35.5 | EXTERNAL | | | | performed at [facility];[address] | g/dL | LAB | | | | [address];[place] | | | | | | [address] | | | | + + + + + -+ | RDW-CV | 59.5 (H)Comment: Testing | 37 - 53 fl | EXTERNAL | | | | performed at [facility];[address] | | LAB | | | | [address];[place] | | | | | | [address] | | | | + + + + + -+ | Platelet | 424 (H)Comment: Testing | 150 - 400 K/uL | EXTERNAL | | | Count | performed at [facility];[address] | | LAB | | | Plasma | [address];[place] | | | | | | [address] | | | | + + + + + -+ | MPV | 7.3Comment: Testing | fl | EXTERNAL | | | | performed at [facility];[address] | | LAB | | | | [address];[place] | | | | | | [address] | | | | + + + + + -+ | Differentia | AUTOMATEDComment: | | EXTERNAL | | | l Type | Testing performed at | | LAB | | | | [facility];[address] | | [address];[place] [address] | | | | + + + + + -+ | % Segmented | 69.52Comment: Testing | % | EXTERNAL | | | | performed at [facility];[address] | | LAB | | | Neutrophils | [address];[place] | | | | | | [address] | | | | + + + + + -+ | % | 17.38Comment: Testing | % | EXTERNAL | | | Lymphocytes | performed at [facility];[address] | | LAB | | | | [address];[place] | | | | | | [address] | | | | + + + + + -+ | % Monocytes | 11.50Comment: Testing | % | EXTERNAL | | | | performed at [facility];[address] | | LAB | | | | [address];[place] | | | | | | [address] | | | | + + + + + -+ | % | 0.84Comment: Testing | % | EXTERNAL | | | Eosinophils | performed at [facility];[address] | | LAB | | | | [address];[place] | | | | | | [address] | | | | + + + + + -+ | % Basophils | 0.76Comment: Testing | % | EXTERNAL | | | | performed at [facility];[address] | | LAB | | | | [address];[place] | | | | | | [address] | | | | + + + + + -+ | Absolute | 17.37 (H)Comment: | 1.90 - 7.40 | EXTERNAL | | | Segmented | Testing performed at | K/uL | LAB | | | Neutrophils | [facility];[address] | | | | [address];[place] [address] | | | | + + + + + -+ | Absolute | 4.34 (H)Comment: Testing | 1.00 - 3.90 | EXTERNAL | | | Lymphocytes | performed at [facility];[address] | K/uL | LAB | | | | [address];[place] | | | | | | [address] | | | | + + + + + -+ | Absolute | 2.87 (H)Comment: Testing | 0.00 - 0.80 | EXTERNAL | | | Monocytes | performed at [facility];[address] | K/uL | LAB | | | | [address];[place] | | | | | | [address] | | | | + + + + + -+ | Absolute | 0.21Comment: Testing | 0.00 - 0.50 | EXTERNAL | | | Eosinophils | performed at [facility];[address] | K/uL | LAB | | | | [address];[place] | | | | | | [address] | | | | + + + + + -+ | Absolute | 0.19 (H)Comment: Testing | 0.00 - 0.10 | EXTERNAL | | | Basophils | performed at [facility];[address] | K/uL | LAB | | | | [address];[place] | | | | | | [address] | | | | + + + + + -+ | RBC | 1+Comment: ANISONORMAL | | EXTERNAL | | | Morphology | PLT MORPHTesting | | LAB | | | | performed at [facility];[address] | | | | | | [address];[place] | | | | | | [address] | | | | | | | | | | + + + + + -+ | Na | 133 (L)Comment: Testing | 135 - 143 | EXTERNAL | | | | performed at [facility];[address] | mmol/L | LAB | | | | [address];[place] | | | | | | [address] | | | | + + + + + -+ | K | 3.6Comment: Testing | 3.5 - 4.9 | EXTERNAL | | | | performed at [facility];[address] | mmol/L | LAB | | | | [address];[place] | | | | | | [address] | | | | + + + + + -+ | Cl | 95 (L)Comment: Testing | 99 - 109 mmol/L | EXTERNAL | | | | performed at [facility];[address] | | LAB | | | | [address];[place] | | | | | | [address] | | | | + + + + + -+ | CO2 | 28Comment: Testing | 23 - 32 mmol/L | EXTERNAL | | | | performed at [facility];[address] | | LAB | | | | [address];[place] | | | | | | [address] | | | | + + + + + -+ | Anion Gap | 13Comment: Testing | 5 - 20 mmol/L | EXTERNAL | | | | performed at [facility];[address] | | LAB | | | | [address];[place] | | | | | | [address] | | | | + + + + + -+ | Glucose, | 123 (H)Comment: Testing | 65 - 99 mg/dL | EXTERNAL | | | Fasting | performed at [facility];[address] | | LAB | | | | [address];[place] | | | | | | [address] | | | | + + + + + -+ | BUN | 7 (L)Comment: Testing | 8 - 25 mg/dL | EXTERNAL | | | | performed at [facility];[address] | | LAB | | | | [address];[place] | | | | | | [address] | | | | + + + + + -+ | Creatinine | 0.76Comment: Testing | 0.50 - 1.00 | EXTERNAL | | | | performed at [facility];[address] | mg/dL | LAB | | | | [address];[place] | | | | | | [address] | | | | + + + + + -+ | BUN/Creatin | 10Comment: Testing | | EXTERNAL | | | ine Ratio | performed at [facility];[address] | | LAB | | | | [address];[place] | | | | | | [address] | | | | + + + + + -+ | Calcium | 8.2 (L)Comment: Testing | 8.5 - 10.5 | EXTERNAL | | | | performed at [facility];888 | mg/dL | LAB | | | | [address];[place] | | | | | | [address] | | | | + + + + + -+ | Protein, | 6.6Comment: Testing | 6.3 - 8.2 g/dL | EXTERNAL | | | Total | performed at [facility];[address] | | LAB | | | | [address];[place] | | | | | | [address] | | | | + + + + + -+ | Albumin | 2.7 (L)Comment: Testing | 3.6 - 5.0 g/dL | EXTERNAL | | | | performed at [facility];[address] | | LAB | | | | [address];[place] | | | | | | [address] | | | | + + + + + -+ | Globulin | 4.0Comment: Testing | 1.3 - 4.9 g/dL | EXTERNAL | | | | performed at [facility];[address] | | LAB | | | | [address];[place] | | | | | | [address] | | | | + + + + + -+ | A/G Ratio | 0.7 (L)Comment: Testing | 1.0 - 2.4 | EXTERNAL | | | | performed at [facility];[address] | | LAB | | | | [address];[place] | | | | | | [address] | | | | + + + + + -+ | Bilirubin | 0.7Comment: Testing | 0.1 - 1.5 mg/dL | EXTERNAL | | | Total | performed at [facility];[address] | | LAB | | | | [address];[place] | | | | | | [address] | | | | + + + + + -+ | ALP, | 251 (H)Comment: Testing | 35 - 115 U/L | EXTERNAL | | | External | performed at [facility];[address] | | LAB | | | | [address];[place] | | | | | | [address] | | | | + + + + + -+ | AST | 33Comment: Testing | 10 - 45 U/L | EXTERNAL | | | | performed at [facility];[address] | | LAB | | | | [address] [place];[place] | | | | | | [address] | | | | + + + + + -+ | ALT | 36Comment: Testing | 10 - 65 U/L | EXTERNAL | | | | performed at [facility];[address] | | LAB | | | | [address];[place] | | | | | | [address] | | | | + + + [...] | | | | | | at [facility];[address] [facility] | | | | | | [address];[place] [address] | | | | + + + + + -+ | CK, Total | 50Comment: Testing | 30 - 240 U/L | EXTERNAL | | | | performed at [facility];[address] | | LAB | | | | [facility];[place] | | | | | | [address] | | | | + + + [...] | | | | | performed at [facility];[address] | | | | | | [facility];[place] | | | | | | [address] | | | | + + + + + -+ | aPTT, | 33 (H)Comment: Testing | 23 - 32 seconds | EXTERNAL | | | Patient | performed at [facility];[address] | | LAB | | | | [address];[place] | | | | | | [address] | | | | + + + + + -+ | CK-MB | 0.6Comment: Testing | 0.5 - 3.6 ng/mL | EXTERNAL | | | | performed at [facility];[address] | | LAB | | | | [address];[place] | | | | | | [address] | | | | + + + [...] [facility] Conversion - 11/24/2018 6:38 AM PDT HISTORY:Altered [...]
--- OUTSIDE RECORDS SUMMARY | ~2019-03-09 | XMS | Encounter Summary ---
Demographics + + + | Address | [address] | | | [place] [address] | + + + | Home Phone | | + + + | Preferred Language | Unknown | + + + | Marital Status | | + + + | Adventist Affiliation | NRP | + + + | Race | White | + + + | Ethnic Group | Not or | + + + Author + + + | Author | [facility] | + + + | Organization | [facility] | + + + | Address | Unknown | + + + | Phone | Unavailable | + + + Support + + + + + | Name | Relationship | Address | Phone | + + + + + | Kole Willingham | [place] | [address] | | | | | [place], [place] | | | | | [address] | | + + + + + | Cami Sawyer | ECON | Unknown | | + + + + + Care Team Providers + +------+ + | Care Engraving Plate Maker Name | Role | Phone | [...] | 2014 | Event | [facility] | [address] | | | | | [facility] | [facility] | | | | | Hospital Admitting | [place] [address] | | | | | Desk Located on the | [phone] | | | | | 9th floor | | | | | | [place], [place] | Rajiv Willingham MD | | | | | [address] | [facility] | | | | | | [facility] [address] [address] | | | | | | [facility] | | | | | | [place] [address] | | | | | | [phone] | | | | | | | [...] by | | D - | "port"); [facility]; 01/27/17 | Alberto London RN | Discontinued After | | [facility] | (Automatic cleanup per RA | | Discharge | | l Line | 3006--contact admin for | | | | | questions.); 1622 (Automatic | | | | | cleanup per RA 3006--contact | | | | | admin for questions.); Yes; Other | | | | | (comment) ([facility]); No; Left; | | | | [...]
--- OUTSIDE RECORDS SUMMARY | ~2019-03-09 | XMS | Encounter Summary ---
Demographics + + + | Address | [address] | | | [place] [address] | + + + | Home Phone | | + + + | Preferred Language | Unknown | + + + | Marital Status | | + + + | Jewish Affiliation | Unknown | + + + | Race | Unknown | + + + | Ethnic Group | Unknown | + + + Author + + + | Author | [facility] | | | and [place] | + + + | Organization | [facility] | | | [...] Team Providers + +------+ + | Care Oracle Application Architect Name | Role | Phone | + [...] Unknown | | | | | [place], [place] | [phone] | | | | | [address] | | | | | | [phone] | | | +--------+ + + + [...]
--- OUTSIDE RECORDS SUMMARY | ~2019-03-09 | XMS | Encounter Summary ---
Demographics + + + | Address | [address] | | | [place] [address] | + + + | Home Phone [...] [place], [place] | | | | | [address] | | + + + + + | Cami Sawyer | ECON | Unknown | | + + + + + Care Team Providers + +------+ + | Care Stakes Player Name | Role | Phone | + [...] | Crohn's | Neel Vega MD | [address] | | | | | disease of | [facility] | [address] | | | | | both small | HOSP[facility] | [place] | | | | | and large | [facility]IC | [place], [place] | | | | | intestine | [address] | [address] | | | | | without | 2ND | Phone: | | | | | complication | [place], | [phone] | | | | | s | [place] [address] | Fax: | | | | | | Phone: | [phone] | | | | | | [phone] | | | | | | | Fax: | | | | | | | [phone] | | +--------+--------+ + + + + Encounter Details +--------+---------+ + + + | Date | Type | Department | Care Team | Description | +--------+---------+ + + + | 07/27/ | Office | Digestive Health | Trice Marie MD | Rectovaginal fistula | | 2016 | Visit | Center at [facility] [address] | [address] | (Primary Dx); | | | | [address] | [place], | Crohn's disease of | | | | Mailcode: [place] | [place] [address] | both small and large | | | | for Health and | [phone] | intestine with | | | | Healing, [address] | | complication (HCC) | | | | [place], [place] | | | | | | [address] | | | | | | [phone] | | | +--------+---------+ + + + [...] in her vagina seen by her DIRECTOR OF SCIENTIFIC RESEARCH ~1995 For fibroids and vaginal bleeding, she [...] Referral patient, I spent 62 minutes of [id number] time, of which more than half the [...] colonos copy was this past month at [facility] in [facility] with Dr. Krishna, which per [...] alcohol or use illicit drugs. Lives in [place] with her . FH: Family History: None [...] Recommendations: 1) Review outside colonoscopy completed at [facility] - request has been sent 2) Plan for flex sig locally in [place] in 8 weeks time. Patient to send [...] | + +--------+ + + + | MA ANOSCOPY, DIAG | Routin | 08/04/2015 | [...]
--- OUTSIDE RECORDS SUMMARY | ~2019-03-09 | XMS | Encounter Summary ---
Demographics + + + | Address | [address] | | | [place] [address] | + + + | Home Phone | | + + + | Preferred Language | Unknown | + + + | Marital Status | | + + + | Shinto Affiliation | Unknown | + + + [...] Team Providers + +------+ + | Care Dupligraph Operator Name | Role | Phone | + +------+ + PCP | Unavailable | + +------+ + Encounter Details +--------+ + + + + | Date | Type | Department | Care Team | Description | +--------+ + + + + | 02/11/ | Hospital | [facility] | Veena Tobar, | | | 2017 - | Encounter | [facility] | MD [address] | | | | | CARE FLOOR [address] | [place] [address] | | | 02/15/ | | [address] | [phone] | | | 2017 | | [place], [place] | | | | | | [address] | | | | | | [phone] | | | +--------+ + + + [...] Date of Service: 02/15/17 1029 Status: Signed Manager Drive: Aguila Bernard DO (Physician) [facility] Service: Hospitalist Discharge Summary Date of Admission: [...] levofloxacin + IV fluid. Cultures obtained at [facility] showed E coli s usceptible to levofloxacin. [...] Status: DNR/DNI Follow up: Alireza Krishna MD [address], HEATHER [address] [facility] [address] Enrique Bocanegra MD [address] [place] [id number] Medication List START taking these medications [...] 02/15/171246 Date of Service: 02/15/171246 Status: Signed Manager Drive: Gayatri J. Newlun, RN (Registered Nurse) Patient d/c instructions reviewed with patient. Script faxed to [facility] in [place] per pt request. Awaiting [facility] to meet with patient prior to d/c. Spouse to provide trans portation. Gayatri Carrasquillo RN ongenaro islas Transaction, Provider Unknown - 02/15/2017 11:03 AM PST Case Management by Morgan Richards RN at 02/15/17 1103 Author: Morgan Richards RN Service: (none) Author Type: Registered Nurse Filed: 02/15/17 1108 Date of Service: 02/15/17 110 Status: Signed Manager Drive: Morgan Richards RN (Registered Nurse) 02/15/17 1100 [...] Date of Service: 02/15/17 0809 Status: Addendum Manager Drive: Giuila Albert PT (Physical Therapist) Related Notes: Original [...] wheeled (bedside commode) Prior Function Level of Mclean Independent with functional mobility;Independent with ADLs;Assist wi [...] Response to Education: stated understanding Low - 82393 Moderate - 52911 High - 06018 History no personal factors &/or comorbidities Examination 1-2 elements Clinical Presentation stable Clinical Decision Making Complexity: Low 85102 Giulia Albert, PT 02/15/2017 12:11 PM Erin Roca DO - 02/15/2017 6:38 AM PSTFormatting of this note might be different from the briana ginal. Progress Notes by Erin Turner DO at 02/15/17637 Author: Erin Turner DO Service: (none) Author Type: Physician Filed: 02/15/1732 Date of Service: 02/15/17637 Status: Signed Manager Drive: Erin Turner DO (Physician) [facility] Service: Infectious Disease Progress Note Hospital Day: [...] presented to the emergency d epartment at [facility] in [place]. Workup there did show significant pyuria, and [...] >60 02/15/2017 Microbiology: Urine culture collected at [facility] has greater than 100,000 colo nies of Escherichia coli which is susceptible to levofloxacin. PROBLEM LIST Principal Problem: Sepsis(995.91) due to UTI Active Problems: Crohn's disease (HCC) GERD (gastroesophageal reflux disease) HTN (hypertension) Chronic anticoagulation Hypertension Current chronic use of systemic steroids Neuropathy Encephalopathy in sepsis Immunosuppressed status ([facility]) ASSESSMENT & PLAN Sepsis(995.91) due to UTI [...] Management by Morgan Richards RN at 02/14/17 7476 Author: Morgan Richards RN Service: (none) Author Type: Registered Nurse Filed: 02/14/17 0037 Date of Service: 02/14/17 1556 Status: Signed Manager Drive: Morgan Richards RN (Registered Nurse) 02/14/17 1500 Discharge Planning Evaluation Admitting Diagnosis Sepsis due to UTI Anticipated Disposition Facility Type Home;Home infusion Home Infusion & Tube/Enteral Feedings [facility] I spoke with Rhianna from [facility] to follow-up on Pt. Pt. was previously established wit [facility] in [place]. Aguila Jackson DO - 02/14/2017 3:38 PM PSTFormatting of this note might be different from the briana ginal. Progress Notes by Aguila Bernard DO at 02/14/17 1538 Author: Aguila Bernard DO Service: Hospitalist Author Type: Physician Filed: 02/14/17 1547 Date of Service: 02/14/17 1538 Status: Signed Manager Drive: Aguila Bernard DO (Physician) PROGRESS NOTE 02/14/2017 [...] Date of Service: 02/14/17 1530 Status: Signed Manager Drive: Yusra Oconnor PT (Physical Therapist) 02/14/17 1530 [...] Date of Service: 02/14/17 1146 Status: Signed Manager Drive: Yusra Oconnor PT (Physical Therapist) 02/14/17 1146 PT Last Visit PT Received On 02/14/17 Reason for Treatment Deconditioning (sepsis) Requires PT Follow Up Unavailable Other Comments Comments WRAPPER AND PRESERVER present administerring bed bath; RN requests PT [...] 02/14/17830 Date of Service: 02/14/17830 Status: Signed Manager Drive: Latha Hall RPH (Pharmacist) TPN notes: Potassium [...] note might be different from the briana humble. Progress Notes by Erin Turner DO at 02/14/17641 Author: Erin Turner DO Service: (none) Author Type: Physician Filed: 02/14/17824 Date of Service: 02/14/17641 Status: Signed Manager Drive: Erin Turner DO (Physician) [facility] Service: Infectious Disease Progress Note Hospital Day: [...] presented to the emergency d epartment at [facility] in [place]. Workup there did show significant pyuria, and [...] >60 02/14/2017 Microbiology: Urine culture collected at [facility] has greater than 100,000 colo nies of a lactose fermenting gram-negative rods, further identification and susceptibility p ending. No blood cultures were sent. PROBLEM LIST Principal Problem: Sepsis(995.91) due to UTI Active Problems: Crohn's disease ([facility]) GERD (gastroesophageal reflux disease) HTN (hypertension) Chronic anticoagulation Hypertension Current chronic use of systemic steroids Neuropathy Encephalopathy in sepsis Immunosuppressed status ([facility]) ASSESSMENT & PLAN Sepsis(995.91) due to UTI / Immunosuppressed status (07/19/2014) The patient presents with sepsis in the setting of immunosuppression, with workup thus fa r most suggestive of urinary tract infection. The patient has had improving white blood cell count and resolution of fevers with levofloxacin. Await final urine culture results from [facility] hospital. Unfortunately, no blood cultures were sent, therefore will need surveill ance blood cultures drawn from her Med[facility] 1-2 weeks after completing her antibiotic therap y. Crohn's disease ([facility]) (04/12/2014) The patient has recently been treated with Humira, prednisone, and tincture of opium. Encephalopathy in sepsis (02/11/2017) Improving, will continue to monitor. Code Status: DNR/DNI ERIN TURNER DO 02/14/2017 onversion Transaction , Provider Unknown - 02/14/2017 5:06 AM PST Progress Notes by Tanika Alaniz RN at 02/14/17 9446 Author: Tanika Alaniz RN Service: (none) Author Type: Registered Nurse Filed: 02/14/17 1623 Date of Service: 02/14/17 081 Status: Signed Manager Drive: Tanika Alaniz RN (Registered Nurse) Pt A+Ox4, VSS. Pt continued to c/o generalized body pain 11/18, received morphine q3h throug hout shift. Awaiting blood and urine cultures from [facility]. Tanika Alaniz RN yee, Makenzie Arshad MD - 02/13/2017 1:16 PM PST Progress Notes by Makenzie Raymond MD at 02/13/17 1316 Author: Makenzie Raymond MD Service: (none) Author Type: Physician Filed: 02/13/17 4081 Date of Service: 02/13/17 1316 Status: Addendum Manager Drive: Makenzie Raymond MD (Physician) Related Notes: Original Note by Makenzie Raymond MD (Physician) filed at 02/13/17 1433 [facility] Service: Hospitalist Progress Note Pt: Smita Willingham AGE/SEX: 61 y.o. female : 1955 ROOM: [facility]/7101-1 REQUESTING PROVIDER: Makenzie Raymond MD TODAY'S DATE: [...] no guarding Or rebound EXt no edema REQUIREMENTS ANALYST alert no focality LABS: Recent Labs Lab [...] hours. No results for input(s): PHART, PO2ART, MLT8BYT, E4RZWCIV, BEART in the last 168 hours. Recent [...] BC f/ up were send out from [facility] ER . IV fluids on board [...] 02/13/1756 Date of Service: 02/13/17827 Status: Signed Manager Drive: Erin Turner DO (Physician) [facility] Service: Infectious Disease Progress Note Hospital Day: [...] presented to the emergency d epartment at [facility] in [place]. Workup there did show significant pyuria, and [...] 97.7 F (36.5 C) (Oral) | R dgao 16 | Ht 1.727 m (5' 8") [...] culture and blood cultures were collected at [facility] jesse or to transfer. Updated reports have been requested. PROBLEM LIST Principal Problem: Sepsis(995.91) due to UTI Active Problems: Crohn's disease (HCC) GERD (gastroesophageal reflux disease) HTN (hypertension) Chronic anticoagulation Hypertension Current chronic use of systemic steroids Neuropathy Encephalopathy in sepsis Immunosuppressed status ([facility]) ASSESSMENT & PLAN Sepsis(995.91) due to UTI [...] 02/13/17728 Date of Service: 02/13/17728 Status: Signed Manager Drive: Latha Hall RPH (Pharmacist) TPN notes: Blood [...] 0431 Date of Service: 02/13/17427 Status: Signed Manager Drive: Tanika Alaniz RN (Registered Nurse) Pt A+Ox4, but weak and lethargic. VSS. Morphine x3 given for generalized pain. TPN running through port. Pt incontinent of urine and sometimes stool. Tanika Alaniz RN onver roshan Transaction, Provider Unknown - 02/12/2017 3:59 PM PDT Case Management by Terrance Madsen MS, MSW at 02/12/17 0193 Author: Terrance Madsen MS, MSW Service: (none) Author Type: Tip Finisher Filed: 02/12/17 4293 Date of Service: 02/12/17 2045 Status: Signed Manager Drive: Terrance Madsen, MS, SECURITY ASSESSOR (Tip Finisher) 02/12/17 9098 Discharge Planning Evaluation Admitting Diagnosis Sepsis due [...] of care post d/c. Pt resides [facility] with spouse Kole in [facility]. Pt does not drive since she has been ill., her s pouse is able to drive and can come see her. Pt reports a significant history of feeling ill and not be at home lately. 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 She f ollows up with Dr. Coburn [...] ER. She was thereafter transferred over to [facility] for further care. Patient's PCP is: No primary care provider on file. - Dr. Fernandes. Patient's insurance: medicare, [employer] care Coverage concerns:none reported Medication coverage/concerns: none Community resources utilized / needed: uses [place] [facility], [facility] for TPN. May need home health to [...] 02/12/171406 Date of Service: 02/12/171406 Status: Signed Manager Drive: Latha Hall RPH (Pharmacist) Pharmacy Consult for INITIATION of Parenteral Nutrition Smita Willingham 61 y.o. female Ht Readings from Last 1 Encounters: 02/11/17 1.727 m (5' 8") Wt Readings from Last 1 Encounters: 02/11/17 74.5 kg (164 lb 4.8 oz) Filling Station Attendant recommendations: Recommendations Recommended parenteral nutritional needs for [...] Date of Service: 02/12/17 1224 Status: Signed Manager Drive: Sofía Chamberlain RPH (Pharmacist) Clinical Pharmacy Note: [...] Date of Service: 02/12/17 1140 Status: Signed Manager Drive: Sanjuana Spivey RD (Registered Dietitian) 02/12/17 1128 [...] Estimated Energy Needs Total Energy Estimated Needs 4051-6331 kcal Method for Estimating Needs 28-32 kcal/kg [...] Service: (none) Author Type: Physician Filed: 02/12/17 5364 Date of Service: 02/12/17 1122 Status: Addendum Manager Drive: Makenzie Raymond MD (Physician) Related Notes: Original Note by Makenzie Raymond MD (Physician) filed at 02/12/17 8730 [facility] Service: Hospitalist Progress Note Pt: Smita Willingham AGE/SEX: 61 y.o. female : 1955 ROOM: [address] [place] [address] REQUESTING PROVIDER: Makenzie Raymond MD TODAY'S DATE: [...] no guarding Or rebound EXt no edema REQUIREMENTS ANALYST alert no focality LABS: Recent Labs Lab [...] hours. No results for input(s): PHART, PO2ART, ZUI5RSR, S6TRLLAZ, BEART in the last 168 hours. Recent [...] UC BC f/ up send out from [facility] ER C.Diff was negative delirium caution h/ [...] 02/12/17523 Date of Service: 02/12/17518 Status: Signed Manager Drive: Tanika Alaniz RN (Registered Nurse) Pt received this shift from [facility] with UTI and complex GI hx. Pt [...] | | | Fingerstick | performed at [facility] | | LAB | | | | [address];[place] | | | | | | [address] | | | | + + + [...] | | | Fingerstick | performed at [facility];[address] | | LAB | | | | [address];[place] | | | | | | [address] | | | | + + + [...] | | | | performed at [facility];[address] | | | | | | [address];[place], [place] | | | | | | [address] | | | | + + + [...] | | | | performed at [facility];8 | | | | | | [facility];[place], [place] | | | | | | [address] | | | | | |HYPO | | | | | |1+ | | | | | |TARGET | | | | | |1+ | | | | | |OVALO | | | | | |Testing performed at [facility];[address] [place] [address];[place] [address] | | | | | | | [...] EXTERNAL | | | | performed at [facility];8 | | LAB | | | | [address];[place] | | | | | | [address] | | | | + + + [...] EXTERNAL | | | | performed at [facility];[address] | | LAB | | | | [address];[place], [place] | | | | | | [address] | | | | + + + [...] | | | | | | at [facility];[address] | | | | | | [address];[place] [address] | | | | + + + [...] | | | Fingerstick | performed at [facility];[address] | | LAB | | | | [address];[place], [place] | | | | | | [address] | | | | + + + [...] | | | Fingerstick | performed at [facility];[address] | | LAB | | | | [address];[place] | | | | | | [address] | | | | + + + [...] | | | Fingerstick | performed at [facility];[address] | | LAB | | | | [address];[place] | | | | | | [address] | | | | + + + [...] | | | Fingerstick | performed at [facility];[address] | | LAB | | | | [address];[place] | | | | | | [address] | | | | + + + [...] | | | Fingerstick | performed at [facility];[address] | | LAB | | | | [address];[place], [place] | | | | | | [address] | | | | + + + [...] | | | | performed at [facility];[address] | | | | | | [facility];[place], [place] | | | | | | [address] | | | | + + + [...] | | | | | | at [facility];[address] [facility] | | | | | | Blvd;[place] [address] | | | | | |ANISO | | | | | |1+ | | | | | |OVALO | | | | | |1+ | | | | | |TARGET | | | | | |NORMAL PLT MORPH | | | | | |Testing performed at [facility];[address];[place] [address] | | | | | | | [...] EXTERNAL | | | | performed at [facility] | | LAB | | | | [address];[place], [place] | | | | | | [address] | | | | + + + [...] LAB | | | | performed at [facility];[address] | | | | | | [address];[place] | | | | | | [address] | | | | + + + [...] | | | | | | at [facility];[address] | | | [address];[place] [address] | | | | + + + [...] | | | Fingerstick | performed at [facility];[address] | | LAB | | | | [address];[place] | | | | | | [address] | | | | + + + [...] | | | Fingerstick | performed at [facility];[address] | | LAB | | | | [address];[place], [place] | | | | | | [address] | | | | + + + [...] | | | Fingerstick | performed at [facility];[address] | | LAB | | | | [address];[place] | | | | | | [address] | | | | + + + [...] | | | es | performed at [facility], [address] | | LAB | | | | [address], | | | | | | [place] [address] | | | | + + + [...] [address], | | | | | | [place] [address] | | | | + + + [...] | | | Fingerstick | performed at [facility];[address] | | LAB | | | | [address];[place] | | | | | | [address] | | | | + + + [...] EXTERNAL | | | | performed at [facility];8 | | LAB | | | | [address];[place] | | | | | | [address] | | | | + + + [...] | | | | performed at [facility] | | | | | | [facility];[place], [place] | | | | | | [address] | | | | + + + [...] | | | | performed at [facility];[address] | | | | | | [address];[place], [place] | | | | | | [address] | | | | + + + [...] + +---------+ + + External Lab: RAPHAEL (02/13/2017 5:09 AM PST) + + +---- [...] | | | | g performed at [facility], [address] | | | | | | [address] [facility], | | | | | | [place] [address] | | | | | |HYPO | | | | | |2+ | | | | | |TARGET | | | | | |1+ | | | | | |OVALO | | | | | |1+ | | | | | |ACANTHO | | | | | |Testing performed at [facility], [address] [facility], [place] [address] | | | | | | | [...] EXTERNAL | | | | performed at [facility];[address] | | LAB | | | | [address];[place] | | | | | | [address] | | | | + + + [...] LAB | | | | performed at [facility] | | | | | | [address];[place] | | | | | | [address] | | | | + + + [...] | | | | | | at [facility];[address] [place] [address] | | | | | | [facility];[place] [address] | | | | + + + [...] | | | Fingerstick | performed at [facility];[address] | | LAB | | | | [address];[place] | | | | | | [address] | | | | + + + [...] | | | Fingerstick | performed at [facility];[address] | | LAB | | | | [address];[place], [place] | | | | | | [address] | | | | + + + [...] | | | Fingerstick | performed at [facility];[address] | | LAB | | | | [address];[place] | | | | | | [address] | | | | + + + [...] | | | | performed at [facility] | | | | | | [address];[place], [place] | | | | | | [address] | | | | + + + [...] | | | | performed at [facility];[address] | | | | | | [address];[place], [place] | | | | | | [address] | | | | + + + [...] EXTERNAL | | | | performed at [facility];[address] | | LAB | | | | [address];[place], [place] | | | | | | [address] | | | | + + + [...] EXTERNAL | | | | performed at [facility];[address] | | LAB | | | | [address];[place] | | | | | | [address] | | | | + + + [...] | | | | | | at [facility];[address] [place] [address] | | | | | | [facility];[place] [address] | | | | + + + [...] C.difficile. | | | Testing performed at [facility];[address] [place] [address];[place] [address] | | + + + + +---------+ [...] EXTERNAL | | | | performed at [facility];888 | mmol/L | LAB | | | | [address];[place], [place] | | | | | | [address] | | | | + + + [...] EXTERNAL | | | | performed at [facility];888 | mmol/L | LAB | | | | [address];[place], [place] | | | | | | [address] | | | | + + + [...] | | | Patient | performed at [facility];[address] | | LAB | | | | [address];[place] | | | | | | [address] | | | | + + + [...] | | | | performed at [facility] | | | | | | [address] [facility];[place], [place] | | | | | | [address] | | | | + + + [...]
--- OUTSIDE RECORDS SUMMARY | ~2019-03-09 | XMS | Encounter Summary ---
Demographics + + + | Address | [address] | | | [place] [address] | + + + | Home Phone | | + + + | Preferred Language | Unknown | + + + | Marital Status | | + + + | Methodist Affiliation | Unknown | + + + [...] Team Providers + +------+ + | Care Mail List Processor Name | Role | Phone | [...] Unknown | | | | | [place], [place] | [phone] | | | | | [address] | | | | | | [phone] | | | +--------+ + + + [...]
--- OUTSIDE RECORDS SUMMARY | ~2019-03-09 | XMS | Encounter Summary ---
Demographics + + + | Address | [address] | | | [place] [address] | + + + | Home Phone | | + + + | Preferred Language | Unknown | + + + | Marital Status | | + + + | Catholic Affiliation | NRP | + + + | Race | White | + + + | Ethnic Group | Not or | + + + Author + + + | Author | [facility] | + + + | Organization | [facility] | + + + | Address | Unknown | + + + | Phone | Unavailable | + + + Support + + + + + | Name | Relationship | Address | Phone | + + + + + | Kole Willingham | [place] | [address] | | | | | [place], [place] | | | | | [address] | | + + + + + | Cami Sawyer | ECON | Unknown | | + + + + + Care Team Providers + +------+ + | Care Supervisor Briar Shop Name | Role | Phone | + [...] | | 2016 | | Center at [facility] [address] | [address] | | | | | [address] | [facility] | | | | | Mailcode: Paige | [place] [address] | | | | | [facility] and | [phone] | | | | | [place] [address] | | | | | | [place], [place] | | | | | | [address] | | | | | | [phone] | | | +--------+ + + + [...]
--- OUTSIDE RECORDS SUMMARY | ~2019-03-09 | XMS | Encounter Summary ---
Demographics + + + | Address | [address] | | | [place] [address] | + + + | Home Phone | | + + + | Preferred Language | Unknown | + + + | Marital Status | | + + + | Catholic Affiliation | Unknown | + + + | Race | Unknown | + + + | Ethnic Group | Unknown | + + + Author + + + | Author | [facility] | | | and [place] | + + + | Organization | [facility] | | | and [...] Team Providers + +------+ + | Care Insurance Claims Supervisor Name | Role | Phone | + +------+ + PCP | Unavailable | + +------+ + Encounter Details +--------+ + + + + | Date | Type | Department | Care Team | Description | +--------+ + + + + | 02/11/ | Hospital | [facility] | Veena Tobar, | | | 2017 - | Encounter | [facility] | MD [address] | | | | | CARE FLOOR [address] | [place] [address] | | | 02/15/ | | [address] | [phone] | | | 2017 | | [place], [place] | | | | | | [address] | | | | | | [phone] | | | +--------+ + + + [...] Date of Service: 02/15/17 1029 Status: Signed Physician Anesthesiologist: Aguila Bernard DO (Physician) [facility]: Hospitalist Discharge Summary Date of Admission: [...] levofloxacin + IV fluid. Cultures obtained at [facility] showed E coli s usceptible to levofloxacin. [...] Status: DNR/DNI Follow up: Alireza Krishna MD [address], HEATHER [address] [facility] [address] Enrique Bocanegra MD [address] [place] [id number] Medication List START taking these medications [...] 02/15/171246 Date of Service: 02/15/171246 Status: Signed Physician Anesthesiologist: Gayatri J. Newlun, RN (Registered Nurse) Patient d/c instructions reviewed with patient. Script faxed to [facility] in [place] per pt request. Awaiting [facility] to meet with patient prior to d/c. Spouse to provide trans portation. Gayatri Carrasquillo RN ongenaro islas Transaction, Provider Unknown - 02/15/2017 11:03 AM PST Case Management by Morgan Richards RN at 02/15/17 1103 Author: Morgan Richards RN Service: (none) Author Type: Registered Nurse Filed: 02/15/17 1108 Date of Service: 02/15/17 110 Status: Signed Physician Anesthesiologist: Morgan Richards RN (Registered Nurse) 02/15/17 1100 [...] Date of Service: 02/15/17 0809 Status: Addendum Physician Anesthesiologist: Giulia Albert PT (Physical Therapist) Related Notes: [...] wheeled (bedside commode) Prior Function Level of [place] Independent with functional mobility;Independent with ADLs;Assist wi [...] Response to Education: stated understanding Low - 86020 Moderate - 21263 High - 04841 History no personal factors &/or comorbidities Examination 1-2 elements Clinical Presentation stable Clinical Decision Making Complexity: Low 61333 Giulia Albert, PT 02/15/2017 12:11 PM Erin Roca DO - 02/15/2017 6:38 AM PSTFormatting of this note might be different from the briana ginal. Progress Notes by Erin Turner DO at 02/15/17637 Author: Erin Turner DO Service: (none) Author Type: Physician Filed: 02/15/1732 Date of Service: 02/15/17637 Status: Signed Physician Anesthesiologist: Erin Turner DO (Physician) [facility]: Infectious Disease [...] presented to the emergency d epartment at [facility] in [place]. Workup there did show significant pyuria, and [...] >60 02/15/2017 Microbiology: Urine culture collected at [facility] has greater than 100,000 colo nies of Escherichia coli which is susceptible to levofloxacin. PROBLEM LIST Principal Problem: Sepsis(995.91) due to UTI Active Problems: Crohn's disease (HCC) GERD (gastroesophageal reflux disease) HTN (hypertension) Chronic anticoagulation Hypertension Current chronic use of systemic steroids Neuropathy Encephalopathy in sepsis Immunosuppressed status ([facility]) ASSESSMENT & PLAN Sepsis(995.91) due to UTI [...] me as needed. Code Status: DNR/DNI ERIN TURNRE DO 02/15/[address] , Provider Unknown - 02/14/2017 3:56 PM PST Case Management by Morgan Richards RN at 02/14/17 2356 Author: Morgan Richards RN Service: (none) Author Type: Registered Nurse Filed: 02/14/17 1597 Date of Service: 02/14/17 1556 Status: Signed Physician Anesthesiologist: Mogran Richards RN (Registered Nurse) 02/14/17 1500 Discharge Planning Evaluation Admitting Diagnosis Sepsis due to UTI Anticipated Disposition Facility Type Home;Home infusion Home Infusion & Tube/Enteral Feedings [facility] I spoke with Rhianna from [facility] to follow-up on Pt. Pt. was previously established wit [facility] in [place]. Aguila Jackson DO - 02/14/2017 3:38 PM PSTFormatting of this note might be different from the briana ginal. Progress Notes by Aguila Bernard DO at 02/14/17 1538 Author: Aguila Bernard DO Service: Hospitalist Author Type: Physician Filed: 02/14/17 1547 Date of Service: 02/14/17 1538 Status: Signed Physician Anesthesiologist: Aguila Bernard DO (Physician) PROGRESS NOTE 02/14/2017 [...] Date of Service: 02/14/17 1530 Status: Signed Physician Anesthesiologist: Yusra Oconnor PT (Physical Therapist) 02/14/17 1530 [...] Date of Service: 02/14/17 1146 Status: Signed Physician Anesthesiologist: Yusra Oconnor PT (Physical Therapist) 02/14/17 1146 PT Last Visit PT Received On 02/14/17 Reason for Treatment Deconditioning (sepsis) Requires PT Follow Up Unavailable Other Comments Comments HAIR AND MAKEUP DESIGNER present administerring bed bath; RN requests PT [...] 02/14/17830 Date of Service: 02/14/17830 Status: Signed Physician Anesthesiologist: Latha Hall RPH (Pharmacist) TPN notes: Potassium [...] 02/14/17824 Date of Service: 02/14/17641 Status: Signed Physician Anesthesiologist: Erin Turner DO (Physician) [facility]: Infectious Disease [...] presented to the emergency d epartment at [facility] in [place]. Workup there did show significant pyuria, and [...] >60 02/14/2017 Microbiology: Urine culture collected at [facility] has greater than 100,000 colo nies of a lactose fermenting gram-negative rods, further identification and susceptibility p ending. No blood cultures were sent. PROBLEM LIST Principal Problem: Sepsis(995.91) due to UTI Active Problems: Crohn's disease ([facility]) GERD (gastroesophageal reflux disease) HTN (hypertension) Chronic anticoagulation Hypertension Current chronic use of systemic steroids Neuropathy Encephalopathy in sepsis Immunosuppressed status ([facility]) ASSESSMENT & PLAN Sepsis(995.91) due to UTI / Immunosuppressed status (07/19/2014) The patient presents with sepsis in the setting of immunosuppression, with workup thus fa r most suggestive of urinary tract infection. The patient has had improving white blood cell count and resolution of fevers with levofloxacin. Await final urine culture results from [facility] outside hospital. Unfortunately, no blood cultures were sent, therefore will need surveill ance blood cultures drawn from her [facility] 1-2 weeks after completing her antibiotic therap y. Crohn's disease ([facility]) (04/12/2014) The patient has recently been treated with Humira, prednisone, and tincture of opium. Encephalopathy in sepsis (02/11/2017) Improving, will continue to monitor. Code Status: DNR/DNI ERIN TURNER DO 02/14/2017 onversion Transaction , Provider Unknown - 02/14/2017 5:06 AM PST Progress Notes by Tanika Alaniz RN at 02/14/17 2192 Author: Tanika Alaniz RN Service: (none) Author Type: Registered Nurse Filed: 02/14/17 1624 Date of Service: 02/14/17 244 Status: Signed Physician Anesthesiologist: Tanika Alaniz RN (Registered Nurse) Pt A+Ox4, VSS. Pt continued to c/o generalized body pain 11/18, received morphine q3h throug hout shift. Awaiting blood and urine cultures from [facility]. Tanika Alaniz RN yee, Makenzie Arshad MD - 02/13/2017 1:16 PM PST Progress Notes by Makenzie Raymond MD at 02/13/17 1316 Author: Makenzie Raymond MD Service: (none) Author Type: Physician Filed: 02/13/17 0539 Date of Service: 02/13/17 1316 Status: Addendum Physician Anesthesiologist: Makenzie Raymond MD (Physician) Related Notes: Original Note by Makenzie Raymond MD (Physician) filed at 02/13/17 1433 [facility]: Hospitalist Progress Note Pt: Smita Willingham AGE/SEX: 61 y.o. female : 1955 ROOM: [facility]/7101-1 REQUESTING PROVIDER: Makenzie Raymond MD TODAY'S [...] no guarding Or rebound EXt no edema SAWMILL TALLY CLERK alert no focality LABS: Recent Labs Lab [...] hours. No results for input(s): PHART, PO2ART, LNO5XBY, N8AAKBRM, BEART in the last 168 hours. Recent [...] BC f/ up were send out from [facility]' ER . IV fluids on board WBC 19s moniter trend lactic 2.5 WBC today 18s trend mild down ( on steriod as well) h/o Chron's Immunosuppression on chronic long-term steroids / Humira BS 88 today severe protein ilen malnutrition- TPN per phramcy order was on [...] 02/13/1756 Date of Service: 02/13/17827 Status: Signed Physician Anesthesiologist: Erin Turner DO (Physician) [facility]: Infectious Disease [...] presented to the emergency d epartment at [facility] in [place]. Workup there did show significant pyuria, and [...] culture and blood cultures were collected at [facility] jesse or to transfer. Updated reports have been requested. PROBLEM LIST Principal Problem: Sepsis(995.91) due to UTI Active Problems: Crohn's disease (HCC) GERD (gastroesophageal reflux disease) HTN (hypertension) Chronic anticoagulation Hypertension Current chronic use of systemic steroids Neuropathy Encephalopathy in sepsis Immunosuppressed status ([facility]) ASSESSMENT & PLAN Sepsis(995.91) due to UTI [...] 02/13/17728 Date of Service: 02/13/17728 Status: Signed Physician Anesthesiologist: Latha Hall RPH (Pharmacist) TPN notes: Blood [...] 0431 Date of Service: 02/13/17427 Status: Signed Physician Anesthesiologist: Tanika Alaniz RN (Registered Nurse) Pt A+Ox4, but weak and lethargic. VSS. Morphine x3 given for generalized pain. TPN running through port. Pt incontinent of urine and sometimes stool. Tanika Alaniz RN onver roshan Transaction, Provider Unknown - 02/12/2017 3:59 PM PDT Case Management by Terrance Madsen MS, MSW at 02/12/17 3634 Author: Terrance Madsen MS, MSW Service: (none) Author Type: Geophysics Teacher Filed: 02/12/17 7820 Date of Service: 02/12/17 4146 Status: Signed Physician Anesthesiologist: Terrance Madsen, MS, [employer] SALESPERSON (Geophysics Teacher) 02/12/17 6825 Discharge Planning Evaluation Admitting Diagnosis Sepsis due [...] of care post d/c. Pt resides at [facility] with spouse Kole in [facility]. Pt does not drive since she has been ill., her s pouse is able to drive and can come see her. Pt reports a significant history of feeling ill and not be at home lately. 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 She f ollows up with Dr. [...] ER. She was thereafter transferred over to [facility] for further care. Patient's PCP is: No primary care provider on file. - Dr. Fernandes. Patient's insurance: medicare, [employer] care Coverage concerns:none reported Medication coverage/concerns: none Community resources utilized / needed: uses [place] [facility], [facility] for TPN. May need home health to [...] 02/12/171406 Date of Service: 02/12/171406 Status: Signed Physician Anesthesiologist: Latha Hall RPH (Pharmacist) Pharmacy Consult for INITIATION of Parenteral Nutrition Smita Willingham 61 y.o. female Ht Readings from Last 1 Encounters: 02/11/17 1.727 m (5' 8") Wt Readings from Last 1 Encounters: 02/11/17 74.5 kg (164 lb 4.8 oz) Country Printer Apprentice recommendations: Recommendations Recommended parenteral nutritional needs for [...] Date of Service: 02/12/17 1224 Status: Signed Physician Anesthesiologist: Sofía Chamberlain RPH (Pharmacist) Clinical Pharmacy Note: [...] Date of Service: 02/12/17 1140 Status: Signed Physician Anesthesiologist: Sanjuana Spivey RD (Registered Dietitian) 02/12/17 1128 [...] Estimated Energy Needs Total Energy Estimated Needs 0260-6636 kcal Method for Estimating Needs 28-32 kcal/kg [...] Service: (none) Author Type: Physician Filed: 02/12/17 2133 Date of Service: 02/12/17 1122 Status: Addendum Physician Anesthesiologist: Makenzie Raymond MD (Physician) Related Notes: Original Note by Makenzie Raymond MD (Physician) filed at 02/12/17 6052 [facility]: Hospitalist Progress Note Pt: Smita Willingham AGE/SEX: 61 y.o. female : 1955 ROOM: [address] [place] [address] REQUESTING PROVIDER: Makenzie Raymond MD TODAY'S DATE: [...] no guarding Or rebound EXt no edema SAWMILL TALLY CLERK alert no focality LABS: Recent Labs Lab [...] hours. No results for input(s): PHART, PO2ART, VRI0BIC, C2GLYCWU, BEART in the last 168 hours. Recent [...] 02/12/17523 Date of Service: 02/12/17518 Status: Signed Physician Anesthesiologist: Tanika Alaniz RN (Registered Nurse) Pt received this shift from [facility] with UTI and complex GI hx. [...] | | | Fingerstick | performed at [facility] | | LAB | | | | [address];[place] | | | | | | [address] | | | | + + + [...] | | | Fingerstick | performed at [facility];[address] | | LAB | | | | [address];[place] | | | | | | [address] | | | | + + + [...] | | | | | performed at [facility];[address] | | | | | | [address];[place], [place] | | | | | | [address] | | | | + + + [...] | | | | | performed at [facility];8 | | | | | | [facility];[place], [place] | | | | | | [address] | | | | | |HYPO | | | | | |1+ | | | | | |TARGET | | | | | |1+ | | | | | |OVALO | | | | | |Testing performed at [facility];[address] [place] [address];[place] [address] | | | | | | | [...] EXTERNAL | | | | performed at [facility];8 | | LAB | | | | [address];[place] | | | | | | [address] | | | | + + + [...] EXTERNAL | | | | performed at [facility];[address] | | LAB | | | | [address];[place], [place] | | | | | | [address] | | | | + + + [...] | | at [facility];[address] | | | | | | [address];[place] [address] | | | | + + + [...] | | | Fingerstick | performed at [facility];[address] | | LAB | | | | [address];[place], [place] | | | | | | [address] | | | | + + + [...] | | | Fingerstick | performed at [facility];[address] | | LAB | | | | [address];[place] | | | | | | [address] | | | | + + + [...] | | | Fingerstick | performed at [facility];[address] | | LAB | | | | [address];[place] | | | | | | [address] | | | | + + + [...] | | | Fingerstick | performed at [facility];[address] | | LAB | | | | [address];[place] | | | | | | [address] | | | | + + + [...] | | | Fingerstick | performed at [facility];[address] | | LAB | | | | [address];[place], [place] | | | | | | [address] | | | | + + + [...] | | | | | performed at [facility];[address] | | | | | | [facility];[place], [place] | | | | | | [address] | | | | + + + [...] | | at [facility];[address] [facility] | | | | | | Blvd;[place] [address] | | | | | |ANISO | | | | | |1+ | | | | | |OVALO | | | | | |1+ | | | | | |TARGET | | | | | |NORMAL PLT MORPH | | | | | |Testing performed at [facility];[address];[place] [address] | | | | | | | [...] EXTERNAL | | | | performed at [facility] | | LAB | | | | [address];[place], [place] | | | | | | [address] | | | | + + + [...] LAB | | | | performed at [facility];[address] | | | | | | [address];[place] | | | | | | [address] | | | | + + + [...] | | at [facility];[address] | | [address];[place] [address] | | | | + + + [...] | | | Fingerstick | performed at [facility];[address] | | LAB | | | | [address];[place] | | | | | | [address] | | | | + + + [...] | | | Fingerstick | performed at [facility];[address] | | LAB | | | [address];[place], [place] | | | | | | [address] | | | | + + + [...] | | | Fingerstick | performed at [facility];[address] | | LAB | | | | [address];[place] | | | | | | [address] | | | | + + + [...] | | | es | performed at [facility], [address] | | LAB | | | | [address], | | | | | | [place] [address] | | | | + + + [...] [address], | | | | | | [place] [address] | | | | + + + [...] | | | Fingerstick | performed at [facility];[address] | | LAB | | | | [address];[place] | | | | | | [address] | | | | + + + [...] EXTERNAL | | | | performed at [facility];8 | | LAB | | | | [address];[place] | | | | | | [address] | | | | + + + [...] | | | | | performed at [facility] | | | | | | [facility];[place], [place] | | | | | | [address] | | | | + + + [...] | | | | | performed at [facility];[address] | | | | | | [address];[place], [place] | | | | | | [address] | | | | + + + [...] | | | | g performed at [facility], [address] | | | | | | [address] [facility], | | | | | | [place] [address] | | | | | |HYPO | | | | | |2+ | | | | | |TARGET | | | | | |1+ | | | | | |OVALO | | | | | |1+ | | | | | |ACANTHO | | | | | |Testing performed at [facility], [address] [facility], [place] [address] | | | | | | | [...] EXTERNAL | | | | performed at [facility];[address] | | LAB | | | | [address];[place] | | | | | | [address] | | | | + + + [...] LAB | | | | performed at [facility] | | | | | | [address];[place] | | | | | | [address] | | | | + + + [...] | | at [facility];[address] [place] [address] | | | | | | [facility];[place] [address] | | | | + + + [...] | | | Fingerstick | performed at [facility];[address] | | LAB | | | | [address];[place] | | | | | | [address] | | | | + + + [...] | | | Fingerstick | performed at [facility];[address] | | LAB | | | | [address];[place], [place] | | | | | | [address] | | | | + + + [...] | | | Fingerstick | performed at [facility];[address] | | LAB | | | | [address];[place] | | | | | | [address] | | | | + + + [...] | | | | | performed at [facility] | | | | | | [address];[place], [place] | | | | | | [address] | | | | + + + [...] | | | | | performed at [facility];[address] | | | | | | [address];[place], [place] | | | | | | [address] | | | | + + + [...] EXTERNAL | | | | performed at [facility];[address] | | LAB | | | | [address];[place], [place] | | | | | | [address] | | | | + + + [...] EXTERNAL | | | | performed at [facility];[address] | | LAB | | | | [address];[place] | | | | | | [address] | | | | + + + [...] | | at [facility];[address] [place] [address] | | | | | | [facility];[place] [address] | | | | + + + [...] C.difficile. | | | Testing performed at [facility];[address] [place] [address];[place] [address] | | + + + + +---------+ [...] EXTERNAL | | | | performed at [facility];888 | mmol/L | LAB | | | | [address];[place], [place] | | | | | | [address] | | | | + + + [...] EXTERNAL | | | | performed at [facility];888 | mmol/L | LAB | | | | [address];[place], [place] | | | | | | [address] | | | | + + + [...] | | | Patient | performed at [facility];[address] | | LAB | | | | [address];[place] | | | | | | [address] | | | | + + + [...] | | | | | performed at [facility] | | | | | | [address] [facility];[place], [place] | | | | | | [address] | | | | + + + [...]
--- OUTSIDE RECORDS SUMMARY | ~2019-03-09 | XMS | Encounter Summary ---
Demographics + + + | Address | [address] | | | [place] [address] | + + + | Home Phone | | + + + | Preferred Language | Unknown | + + + | Marital Status | | + + + | Mandaen Affiliation | NRP | + + + | Race | White | + + + | Ethnic Group | Not or | + + + Author + + + | Author | [facility] | + + + | Organization | [facility] | + + + | Address | Unknown | + + + | Phone | Unavailable | + + + Support + + + + + | Name | Relationship | Address | Phone | + + + + + | Kole Hartley | LAMONT | [address] | | | | | [place], [place] | | | | | [address] | | + + + + + | Cami Sawyer | ECON | Unknown | | + + + + + Care Team Providers + +------+ + | Care Resident Services Director Name | Role | Phone | [...] RE-OPEN LAPAROTOMY, | | 2015 | | [facility] | [address] | evacuation of | | | | Admitting Desk | [address] | hematoma, control of | | | | Located on the 9 | [place], [place] | retroperitonieal | | | | floor [address] [facility] | [phone] | hemorage, lysis of | | | | [address] | [phone] | adhesions, wound vac | | | | [place], [place] | | placement, and | | | | [address] | | abdominal wall | | | [...] different f rom the original. [facility] DEPARTMENT OF SURGERY EMERGENCY GENERAL SURGERY [...] and [facility]. Mackenzie Hartley is discharged in stable [...] 100mls three times a day. Destination: Destination: Halfway Facility Thank you for the opportunity to [...] different f rom the original. [facility] DEPARTMENT OF SURGERY EMERGENCY [...] s while anticoagulated with warfarin transferred to [facility] from [facility] for hanh gement of retroperitoneal bleed. 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 S [...] thrombosis while anticoagulated with warfarin transferred to [facility] from [facility] for management of retroperitoneal bleed. She [...] know if she wants to see the [facility] GI team - Stage I pressure [...] recommending VIBRA since would be close to [facility] and she would benefit for aggres [...] with complication 03/12/2012 Jean-Claude Albrecht D.M.D., M.D. [facility] [address] [place] [id number] This assessment and plan was formulated both [...] MD - 05/11/2014 8:51 AM PST . 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 S [...] thrombosis while anticoagulated with warfarin transferred to [facility] from [facility] for management of retroperitoneal bleed. She [...] know if she wants to see the [facility] GI team - Stage I pressure [...] recommending VIBRA since would be close to [facility] and she would benefit for aggres [...] and large intestine with complication 03/12/2012 Jean-Claude Ablrecht D.M.D., M.D. [facility] [address] [place] [address] This assessment and plan was formulated both [...] center isha supporting her. Pt is not catholic but appreciates support. Intervention: Provided a listening presence and explored pt's anxieties, worries and hopes. Plan: Spiritual care remains available. Yvette Jolly, [facility] / 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 S [...] thrombosis while anticoagulated with warfarin transferred to [facility] from [facility] for management of retroperitoneal bleed. She [...] know if she wants to see the [facility] GI team - Stage I pressure [...] recommending JJ since would be close to [facility] and she would benefit for marcela [...] intestine with complication 03/12/2012 ANDREW VINCENT MD [facility] [address]A [address] [facility] [place] [address] This assessment and plan was [...] 15 mg feeding tube DAILY probiotic kefir (RUFSU'S KEFIR) feeding tube TID senna (SENOKOT) liquid [...] this note might be different from the [facility]. 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 S [...] thrombosis while anticoagulated with warfarin transferred to [facility] from [facility] for management of retroperitoneal bleed. She [...] know if she wants to see the [facility] GI team - Stage I pressure [...] recommending SONIAA since would be close to [facility] and she would benefit for aggres [...] intestine with complication 03/12/2012 ANDREW VINCENT MD [facility] [address] [facility] [place] [address] This assessment and plan was [...] might be different from the orig [facility]. 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 S [...] TROPONIN Imaging No new Cultures BLOOD CULTURE [facility] (no units) Date Value Range Status [...] thrombosis while anticoagulated with warfarin transferred to [facility] from [facility] for management of retroperitoneal bleed. She [...] know if she wants to see the [facility] GI team - Stage I pressure [...] recommending SONIAA since would be close to [facility] and she would benefit for marcela [...] intestine with complication 03/12/2012 ANDREW VINCENT MD [facility] [address] [place] [address] This assessment and plan was formulated both [...] this note might be different from the [facility] Department of Surgery Progress Note Author: Andrew Vincent MD General Surgery Resident Attending Physician: Jf Wiseman MD GENERAL SURGERY Progress Note: Hospital Day #: 14 ATTENDING: Jf Wiseman MD Identification: Mackenzie Hartley is a 58 year old female with COPD, Crohn's disease, chronic pa in, and 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 S [...] TROPONIN Imaging No new Cultures BLOOD CULTURE [facility] (no units) Date Value Range Status [...] thrombosis while anticoagulated with warfarin transferred to [facility] from [facility] for management of retroperitoneal bleed. 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 S [...] TROPONIN Imaging No new Cultures BLOOD CULTURE [facility] (no units) Date Value Range Status [...] thrombosis while anticoagulated with warfarin transferred to [facility] from [facility] for management of retroperitoneal bleed. She [...] continued DHT,TF - Diet: NPO - per HAY CHOPPER, high risk of aspiration - continue ice [...] intestine with complication 03/12/2012 ANDREW VINCENT MD [facility] [address]A [address] [place] [address] This assessment and plan was [...] might be different from the orig [facility]. 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 S [...] TROPONIN Imaging No new Cultures BLOOD CULTURE [facility] (no units) Date Value Range Status [...] thrombosis while anticoagulated with warfarin transferred to [facility] from [facility] for management of retroperitoneal bleed. She [...] intestine with complication 03/12/2012 ANDREW VINCENT MD [facility] [address]A [address] [place] [id number] This assessment and plan was formulated both [...] the resident s note. PHIL VARMA MD [facility] [address]A [address] [facility] [place] [address] Rosa Sauer MD - 05/04/2014 8:26 AM [...] at referring hospital. She was transferred to [facility] f or active hemorrhage and [...] rounds. Rosa Reynoso, R2 SICU/Trauma Personal pager: [phone] Team pager: [phone] Angeles Acevedo MD - 05/04/2014 7:08 AM PST [facility] DEPARTMENT OF SURGERY EGS ICU Progress Note Division of Trauma and Critical Care ID: Mackenzie Hartley is a 58 year old female with COPD, Crohn's disease, chronic pain, and 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 while anticoagulated with warfarin transferre d to [facility] from [facility] for management of retroperitoneal bleed. She [...] thrombosis while anticoagulated with warfarin transferred to [facility] from [facility] for management of retroperitoneal bleed. She has required repeated transfers to ICU for respiratory status. She has been diuresed ap propriately while in the ICU and O2 needs have decreased significantly. Will transfer to [facility] or, but need to keep [...] Hannah MD General Surgery Resident, R3 Pager [phone] [facility] [address] [place] [address] Jf Jones MD - 05/03/2014 9:38 AM [...] - TF at goal, + BM Dysphagia: HAY CHOPPER following- remains NPO Anasarca: compression socks,. Goal [...] Call team 01/11 for questions: Team Pager [phone] ATTENDING ADDENDUM: I saw and examined Mackenzie [...] Erin Christensen PA-C. Jf Wiseman MD FACS estate planning paralegal Division of Trauma, Critical Care, and Acute Care Surgery [phone] Elda Emmanuel MD - 05/03/2014 3:49 AM PST EMERGENCY GENERAL SURGERY ICU PROGRESS NOTE: Attending Physician: Jf Wiseman MD 05/03/2014 ID: Mackenzie Hartley is a 58 year old female with COPD, Crohn's disease, chronic pain, and coagulopa thy resulting in splenic artery thrombosis while anticoagulated with warfarin transferred to [facility] from [facility] for management of retroperitoneal bleed. She [...] thrombosis while anticoagulated with warfarin transferred to [facility] from [facility] for management of retroperitoneal bleed. 1. [...] this patient encounter. Elda Glez MD Pager [phone] Plastic Surgery R2 [facility] Diagnoses: 555.2 Crohn's disease of both [...] holding Q6W Remicade- will consult hematology in [facility] week regarding of timing of resuming remicade Severe malnutrition: - TF at goal, + BM, Dysphagia: HAY CHOPPER following- remains NPO Anasarca: compression socks,. Goal [...] Call team 01/11 for questions: Team Pager [phone] ATTENDING ADDENDUM: I saw and examined Mackenzie [...] Marge Harris PA-C. Jf Wiseman MD FACS estate planning paralegal Division of Trauma, Critical Care, and Acute Care Surgery [phone] ngeles Hannah MD - 05/02/2014 6:55 AM PST [facility] DEPARTMENT OF SURGERY EGS ICU Progress Note Division of Trauma and Critical Care ID: Mackenzie Hartley is a 58 year old female with COPD, Crohn's disease, chronic pain, and 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 while anticoagulated with warfarin transferre d to [facility] from [facility] for management of retroperitoneal bleed. She [...] thrombosis while anticoagulated with warfarin transferred to [facility] from [facility] for management of retroperitoneal bleed. Neuro: [...] Hannah MD General Surgery Resident, R3 Pager [phone] [place] [address] Kristina, Angeles Hanna MD - 05/02/2014 2:14 [...] Hannah MD General Surgery Resident, R3 Pager [phone] Jean-Claude Chaidez DMD, MD - 05/01/2014 10:36 AM PST [facility] DEPARTMENT OF SURGERY EGS Progress Note ID: Mackenzie Hartley is a 58 year old female with COPD, Crohn's disease, chronic pain, and 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 while anticoagulated with warfarin transferre d to [facility] from [facility] for management of retroperitoneal bleed. She [...] mg, 0.2-1 mg, intravenous, Q2H PRN, Gayatri monzno PA-C, 0.2 mg at 05/01/14 0037 menthol-zinc [...] thrombosis while anticoagulated with warfarin transferred to [facility] from [facility] for management of retroperitoneal bleed. Overall, she is improving. However, remains tachycardic with leukocytosis - WBC [address] 05/01 showed - moderate ascites and pleural effusions and hematoma. Neuro: dilaudid IV PRN Speech: following continue daily to eval swallow CV: HD stable L TRAFFIC ENUMERATOR PSA resolved Continue IV lasix today 20 [...] D.M.D., M.D. [facility] [place] [address] [facility] [place] [address] Jf Jones MD - 04/30/2014 11:08 AM [...] at referring hospital. She was transferred to [facility] fo r active hemorrhage and [...] malnutrition: - pulled DHT- refusing replacement. Await HAY CHOPPER eval if passes swallow will give chance to prove adequate po intake. Expect will require TFs again Dysphagia: await HAY CHOPPER eval today. Cont meds and feed via [...] Call team 01/11 for questions: Team Pager [phone] ATTENDING ADDENDUM: I saw and examined Mackenzie [...] Marge Harris PA-C. Jf Wiseman MD FACS estate planning paralegal Division of Trauma, Critical Care, and Acute Care Surgery [phone] Angeles Acevedo MD - 04/30/2014 1:18 AM PST [facility] DEPARTMENT OF SURGERY EGS ICU Progress Note Division of Trauma and Critical Care ID: Mackenzie Hartley is a 58 year old female with COPD, Crohn's disease, chronic pain, and 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 while anticoagulated with warfarin transferre d to [facility] from [facility] for management of retroperitoneal bleed. She [...] thrombosis while anticoagulated with warfarin transferred to [facility] from [facility] for management of retroperitoneal bleed. Overall, she is improving. However, remains tachycardic with leukocytosis -- difficult to t ease out if this is secondary to asplenia. Will obtain CT abd pelvis today to clarify. Neuro: dilaudid IV PRN and intermittent versed for sedation CV: HD stable L TRAFFIC ENUMERATOR PSA resolved Pulm: titrate to O2 >92% [...] Hannah MD General Surgery Resident, R3 Pager [phone] [facility] [address] [place] [address] Aravind Morales MD - 04/29/2014 11:43 AM PSTICU Attending: I saw and examined Mackenzie Hartley ([id number]) with Erin Christensen PA-C on 04/29/14 and [...] documented by valentin HASTINGS. Aravind Massey MD Manager [employer] Trauma, Critical Care & Acute Care Surgery [...] at referring hospital. She was transferred to [facility] fo r active hemorrhage. Hospital [...] resolving cont current H2O via DHT Dysphagia: HAY CHOPPER consulted, ice chips only. Cont meds and [...] Call team 01/11 for questions: Team Pager [phone] Chelly Blum MD,M PH - 04/28/2014 3:03 [...] at referring hospital. She was transferred to [facility] fo r active hemorrhage. Hospital [...] Hyernatremia: resolving, reduce H2O to 30ml/hr Dysphagia: HAY CHOPPER consulted, ice chips only. Cont meds and [...] Call team 01/11 for questions: Team Pager [phone] Angeles Acevedo MD - 04/28/2014 5:18 AM PST [facility] DEPARTMENT OF SURGERY EGS ICU Progress Note Division of Trauma and Critical Care ID: Mackenzie Hartley is a 58 year old female with COPD, Crohn's disease, chronic pain, and 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 while anticoagulated with warfarin transferre d to [facility] from [facility] for management of retroperitoneal bleed. She is s/p ex lap, splenectomy, and packing with lap pads at OSH and from reopening of laparotomy, evacua tion of 2-3 L of intraabdominal hematoma, closure of open abdomen SUBJECTIVE: Extubated, neurologically doing much better. 3 L NC Underwent successful thrombin injection of L TRAFFIC ENUMERATOR pseudoaneurysm by IR 04/26 MEDICATIONS: Current facility-administered [...] thrombosis while anticoagulated with warfarin transferred to [facility] from [facility] for management of retroperitoneal bleed. Neuro: dilaudid IV PRN and intermittent versed for sedation CV: HD stable Per vascular: arterial duplex of L TRAFFIC ENUMERATOR to assess for stability of PSA shows [...] Hannah MD General Surgery Resident, R3 Pager [phone] [facility] & [address] [address] Xin Irizarry M D - 04/27/2014 11:55 [...] imaging and laboratory study results EPIC DEPARTMENT: [id number] - [facility] Place of Service: - Inpatient Date of Service: 04-27-2014 Modifiers: GC - Resident Involved Suggested CPT: 87421 - Initial, Comp; Mod complex 50 min XIN AGEE MD [facility] [address] [place] [address] wRudy powers Do - 04/27/2014 11:55 AM PST Hematology Consult Progress Note Primary Service: EGS Primary Attending: Jf Wiseman MD Hospital Length of Stay: 4 Interval Events: - extubated - thrombin injection to TRAFFIC ENUMERATOR pseudoaneurysm - heparin gtt started last night Subjective: Patient is unable to provide history as she remains encephalopathic. Did speak with her , who confirmed history obtained in initial heme consult note. States she givens s been on warfarin since her 2011 [facility] admission with no known thrombotic events [...] off. Pt was staffed with Dr. Xin gAee, attending physician, who agrees with the assessme nt and plan. Rudy Sarmiento, DO [facility] Internal Medicine PGY3 Pager [phone] Mirela Josue MD - 04/27/2014 10:49 AM PST [facility] Department of Surgery Progress Note Author: [...] underwent successful thrombin injection of the left TRAFFIC ENUMERATOR pseudoaneurysm by IR last night. Heparin restarted [...] ultraso und guided thrombin injection of left TRAFFIC ENUMERATOR pseudoanuerysm. Will order arterial duplex of left TRAFFIC ENUMERATOR to assess for stability of pseudoaneurysm Monitor [...] - hemorrhage vs HCAP LUCY MARKS MD [facility] [address] [place] [address] This assessment and plan was formulated both independently and in conjunction with the [facility] ular Surgery Team as well as the attending provider of record above regarding management of this patient and their medical issues. It is accurate to the best of my knowledge, and is s ubject to modification based on clinical developments, new data, or final imaging results. [facility] staff I saw and evaluated the patient. I agree with the findings and the plan of care as jannie hair in the resident s note. Left femoral pseudoaneurysm appears resolved. Stable from [facility] standpoint. No further imaging required unless clinical status changes. Mirela Thompson M.D. [facility] Vascular Surgery [address] [facility] [place] [address] Email: [email or web address] Jf Jones MD - 04/27/2014 8:03 AM [...] at referring hospital. She was transferred to [facility] fo r active hemorrhage. Hospital [...] H2O Hyernatremia: water 100ml/hr via DHT Dysphagia: HAY CHOPPER consulted, ice chips only JULIANE: ATN from [...] Call team 01/11 for questions: Team Pager [phone] ATTENDING ADDENDUM: I saw and examined Mackenzie [...] Erin Christensen PA-C. Jf Wiseman MD FACS estate planning paralegal Division of Trauma, Critical Care, and Acute Care Surgery [phone] ankerElda MD - 04/27/2014 4:52 AM PST EMERGENCY GENERAL SURGERY ICU PROGRESS NOTE: Attending Physician: Jf Wiseman MD 04/27/2014 ID: Mackenzie Hartley is a 58 year old female with COPD, Crohn's disease, chronic pain, and coagulopa thy resulting in splenic artery thrombosis while anticoagulated with warfarin transferred to [facility] from [facility] for management of retroperitoneal bleed. She [...] HR EVENTS: - Incidentally found to have TRAFFIC ENUMERATOR pseudoaneurysm, injected with thrombin by IR - [...] thrombosis while anticoagulated with warfarin transferred to [facility] from [facility] for management of retroperitoneal bleed. Neuro: [...] this patient encounter. Elda Glez MD Pager [phone] Plastic Surgery R2 [facility] & [facility] Diagnoses: 555.2 Crohn's disease of both [...] Attending:Dr. Lenny Calhoun MD (Fellow)/pager: Dr. Vang [phone] Medications Procedure Meds: Dilaudid IV 0.5mg Midazolam [...] at referring hospital. She was transferred to [facility] fo r active hemorrhage. Hospital [...] Call team 01/11 for questions: Team Pager [phone] Angeles Acevedo MD - 04/26/2014 5:24 AM PST [facility] DEPARTMENT OF SURGERY EGS ICU Progress Note Division of Trauma and Critical Care ID: Mackenzie Hartley is a 58 year old female with COPD, Crohn's disease, chronic pain, and 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 while anticoagulated with warfarin transferre d to [facility] from [facility] for management of retroperitoneal bleed. She [...] thrombosis while anticoagulated with warfarin transferred to [facility] from [facility] for management of retroperitoneal bleed. Neuro: [...] Hannah MD General Surgery Resident, R3 Pager [phone] [facility] & [address] [place] [address] Nithya Andres MD - 04/25/2014 6:40 AM PSTTSICU Attending 04/25/14 58 yo woman critically ill with complex surgical and medical history, transferred to [facility] w ith intraabdominal and retroperitoneal hemorrhage [...] Call team 01/11 for questions: Team Pager [phone] Angelse Acevedo MD - 04/25/2014 4:39 AM PST [facility] DEPARTMENT OF SURGERY EGS ICU Progress Note Division of Trauma and Critical Care ID: Mackenzie Hartley is a 58 year old female with COPD, Crohn's disease, chronic pain, and 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 while anticoagulated with warfarin transferre d to [facility] from [facility] for management of retroperitoneal bleed. She [...] thrombosis while anticoagulated with warfarin transferred to [facility] from [facility] for management of retroperitoneal bleed. Neuro: [...] Hannah MD General Surgery Resident, R3 Pager [phone] [facility] & [place] [address] [facility] [address] ich Redding MD - 04/24/2014 9:21 AM [...] extubate Initial surgical contact: Miladis at pager [phone] Nithya Andres MD - 04/24/2014 5:25 AM [...] exploration at referring hospital. IR embolization at [facility]. 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 She [...] thrombosis while anticoagulated with warfarin transferred to [facility] from [facility] for management of retroperitoneal bleed. 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 | [place], [place] | | | [facility] | [facility] | [address] | | | TESTS | | | [...] [facility] | [address] | [place] [address] | | | SERVICES, CORE [...] [facility] | [address] | [place] [address] | | | SERVICES, CORE | [address] [...] | | | LABORATORY | | | VINCENTIAN | | | SERVICES, | | | [...] | + + + + + | [facility] | [address] [facility] | [place] [address] | | | SERVICES, CORE | [address] [...] MARQUAM | [address] | [place], [place] | | | [facility] | [address] | [address] | | | TESTS | | | [...] - [facility] | [address] | [place], [place] | | | [facility] | [address] | [address] | | | TESTS | | | [...] [facility] | [address] | [place] [address] | | | SERVICES, CORE | [address] | | | + + + + + MAGNESIUM, PLASMA (05/12/2014 1:07 AM PST) + +---------+ + + + | Component | Value | Ref Range | Performed | Pathologist | | | | | At | Signature | + +---------+ + + + | MAGNESIUM,P | 1.5 (L) | 1.8 - 2.5 mg/dL | [facility] | | | JFMA | | [...] CENTER [facility] | [address] | [place] [address] | | | SERVICES, CORE | PARK [...] | | | LABORATORY | | | VINCENTIAN | | | SERVICES, | | | [...] the MDRD equation recommended by the | [facility] | | National Kidney Disease Education [...] CENTER [facility] | [address] | [place] [address] | | | JANELL SHARP | [address] [...] [facility] | [address] | [place] [address] | | | SERVICES, JANELL | [address] [...] MARILYN | [address] | [place], [place] | | | [facility] | [facility] | [address] | | | TESTS | | | [...] SANDERS | [address] | [place], [place] | | | [facility] CARE | [address] | [address] | | | TESTS | | | [...] [facility] | [address] | [place] [address] | | | SERVICES, CORE | PARK [...] | + + + + + | [facility] | [address] | [place] [address] | | | SERVICES, CORE | [address] [...] | | | LABORATORY | | | VINCENTIAN | | | SERVICES, | | | [...] the MDRD equation recommended by the | [facility] | | National Kidney Disease Education [...] | [facility] | [address] [facility] | [place] [address] | | | SERVICES, CORE | PARK [...] [facility] | [address] | [place] [address] | | | SERVICESJANELL | [address] [...] - MARQU[facility] | [address] | [place], [place] | | | [facility]ARE | [address] | [address] | | | TESTS | | | [...] SANDERS | [address] | [place], [place] | | | [facility] | [address] | [address] | | | TESTS | | | [...] MIRELA | | | | | | ADMIAN Preliminary / | | | | | [...] MARQUAM | [address] | [place], [place] | | | [facility] | [address] | [address] | | | TESTS | | | [...] - DAVIDAM | [address] | [place] | | | [facility] CARE | [address] | [address] | | | TESTS | | | [...] + + | [facility] | [address] | [place] [address] | | | SERVICES, CORE | [address] | | | + + + + + MAGNESIUM, PLASMA (05/10/2014 3:39 AM PST) + +---------+ + + + | Component | Value | Ref Range | Performed | Pathologist | | | | | At | Signature | + +---------+ + + + | MAGNESIUM,P | 1.4 (L) | 1.8 - 2.5 mg/dL | [facility] | | | LASMA | | [...] [facility] | [address] | [place] [address] | | | SERVICES, CORE | PARK [...] | | | LABORATORY | | | VINCENTIAN | | | SERVICES, | | | [...] the MDRD equation recommended by the | [facility] | | National Kidney Disease Education [...] CENTER [facility] | [address] | [place] [address] | | | JANELL SHRAP | [address] [...] [facility] | [address] | [place] [address] | | | SERVICES, JANELL | [address] [...] MARILYN | [address] | [place], [place] | | | [facility] | [facility] | [address] | | | TESTS | | | [...] | + + + + + | [facility] | [address] | [place], [place] | | | [facility] | [facility] | [address] | | | TESTS | | | [...] MARILYN | [address] | [place], [place] | | | [facility] [place] | [address] | [address] | | | TESTS | | | [...] | + + + + + | [facility] | [address] | [place] [address] | | | SERVICES, CORE | [address] [...] [facility] | [address] | [place] [address] | | | JANELL SHARP | [address] [...] | | | LABORATORY | | | VINCENTIAN | | | SERVICES, | | | [...] [facility] | [address] | [place] [address] | | | SERVICES, CORE | PARK [...] [facility]ENTER [facility] | [address] | [place] [address] | | | SERVICES, CORE | B[address]TR[address] [...] SANDERS | [address] | [place], [place] | | | [facility] | [address] | [address] | | | TESTS | | | [...] MARQUAM | [address] | [place] | | | [facility] CARE | [address] | [address] | | | TESTS | | | [...] | + + + + + | [facility] | [address] | [place] [address] | | | SERVICES, CORE | BERTRAM [...] [facility] | [address] | [place] [address] | | | SERVICES, CORE | [address] [...] | | | LABORATORY | | | VINCENTIAN | | | SERVICES, | | | [...] | + + + + + | [facility] | [address] | [place] [address] | | | SERVICES, CORE | [address] [...] | + + + + + | [facility] | [address] [facility] | [place] [address] | | | SERVICES, CORE | PARK [...] SANDERS | [address] | [place] | | | [facility] | [facility] | [address] | | | TESTS | | | [...] - MARQUAM | [address] | [place] | | | [facility] | [facility] | [address] | | | TESTS | | | [...] [facility] | [address] | [place] [address] | | | ARON, CORE | [address] [...] [facility] | [address] | [place] [address] | | | SERVICES, CORE | PARK [...] | | | LABORATORY | | | VINCENTIAN | | | SERVICES, | | | [...] | + + + + + | [facility] | [address] | [place] [address] | | | SERVICES, CORE | [address] [...] | + + + + + | [facility] | [address] | [place] [address] | | | SERVICES, CORE | [address] [...] MARQUAM | [address] | [place], [place] | | | [facility] [place] | [address] | [address] | | | TESTS | | | [...] | + + + + + | [facility] | [address] | [place] [address] | | | ARON, JANELL | [address] [...] SANDERS | [address] | [place] | | | [facility] | [facility] | [address] | | | TESTS | | | [...] MARILYN | [address] | [place], [place] | | | [facility] | [address] | [address] | | | TESTS | | | [...] | + + + + + | [facility] | [address] | [place] [address] | | | SERVICES, CORE | BERTRAM [...] [facility] | [address] | [place] [address] | | | ARON, JANELL | PARK [...] | | | LABORATORY | | | VINCENTIAN | | | SERVICES, | | | [...] [facility] | [address] | [place] [address] | | | SERVICES, CORE | PARK [...] [facility] | [address] | [place] [address] | | | SERVICES, CORE | PARK [...] LABORATORY | [address] | [place] [address] | | | SERVICES, CORE | PARK [...] [facility]ENTER [facility] | [address] | [place] [address] | | | SERVICES, CORE | BERTRAM [...] [facility] | [address] | [place] [address] | | | SERVICES, CORE | PARK [...] | | | LABORATORY | | | VINCENTIAN | | | SERVICES, | | | [...] | + + + + + | [facility] | [address] | [place] [address] | | | SERVICES, CORE | PARK [...] | + + + + + | [facility] [facility] | [address] | [place] [address] | | | SERVICES, CORE | BERTRAM [...] + + + + | [facility] | [address] | [place] [address] | | | [facility] | Ellen [...] [facility] | [address] | [place] [address] | | | SERVICES, JANELL | PARK [...] [facility] | [address] | [place] [address] | | | SERVICES, CORE | BERTRAM [...] [facility] | [address] | [place] [address] | | | SERVICES, CORE | BERTRAM [...] [facility] | [address] | [place] [address] | | | SERVICES, CORE | PARK [...] | | | LABORATORY | | | VINCENTIAN | | | SERVICES, | | | [...] [facility] | [address] | [place] [address] | | | SERVICES, CORE | PARK [...] | + + + + + | [facility] | [address] | [place] [address] | | | SERVICES, CORE | PARK [...] [facility] | [address] | [place] [address] | | | SERVICES, CORE | PARK [...] | + + + + + | [facility] | [address] | [place] [address] | | | SERVICES, CORE | BERTRAM [...] [facility] | [address] | [place] [address] | | | SERVICES, JANELL | BERTRAM [...] [facility] | [address] | [place] [address] | | | SERVICES, JANELL | [address]TRAM [...] MAR[facility] | [address] | [place] | | | [facility] | [address] | [address] | | | TESTS | | | [...] [facility] | [address] | [place] [address] | | | SERVICES, CORE | PARK [...] [facility] | [address] | [place] [address] | | | SERVICES, CORE | PARK [...] | | | LABORATORY | | | VINCENTIAN | | | SERVICES, | | | [...] | + + + + + | [facility] | [address] | [place] [address] | | | SERVICES, CORE | PARK [...] | + + + + + | [facility] | [address] [facility] | [place] [address] | | | SERVICES, CORE | PARK [...] [facility] | [address] | [place] [address] | | | JANELL SHARP | PARK [...] | | | LABORATORY | | | VINCENTIAN | | | SERVICES, | | | [...] [facility] | [address] | [place] [address] | | | SERVICES, CORE | PARK [...] | | | LABORATORY | | | VINCENTIAN | | | SERVICES, | | | [...] + + + | [facility] | [address] [facility] | [place] [address] | | | JANELL SHARP | [address] [...] [facility] | [address] | [place], [place] | | | THERAPY | [facility] | [address] | | + + + + + [...] [facility] | [address] | [place], [place] | | | THERAPY | [address] | [address] | | + + + + + [...] [facility] | [address] | [place] [address] | | | SERVICES, CORE | PARK [...] | + + + + + | [facility] | [address] | [place] [address] | | | SERVICES, CORE | BERTRAM [...] [facility] | [address] | [place] [address] | | | SERVICES, JANELL | [address] [...] | | | LABORATORY | | | VINCENTIAN | | | SERVICES, | | | [...] | + + + + + | [facility] | [address] | [place] [address] | | | SERVICES, CORE | PARK [...] | + + + + + | [facility] | [address] | [place] [address] | | | SERVICES, CORE | BERTRAM [...] DEPT OF | [address] | [place], [place] | | | CARDIOLOGY | [address] | [address] | | + + + + + X-RAY PORTABLE CHEST 1 VIEW (05/02/2014 2:11 AM PST) + + + + + + | Component | Value | Ref Range | Performed | Pathologist | | | | | At | Signature | + + + + + + | X-RAY | EXAM: IN CHEST 1 VIEW | | | | [...] [facility] | [address] | [place] [address] | | | SERVICES, CORE | BERTRAM [...] SANDERS | [address] | [place] | | | [facility] [place] | [address] | [address] | | | TESTS | | | [...] MARILYN | [address] | [place], [place] | | | [facility] | [facility] | [address] | | | TESTS | | | [...] | + + + + + | [facility] | [address] | [place] [address] | | | SERVICES, CORE | [address] | | | + + + + + X-RAY PORTABLE CHEST 1 VIEW (05/01/2014 3:37 AM PST) + + + + + + | Component | Value | Ref Range | Performed | Pathologist | | | | | At | Signature | + + + + + + | X-RAY | EXAM: IN CHEST 1 VIEW | | | | [...] Bilateral | | | | | | [id number] | | | | | | pleural [...] [facility] | [address] | [place] [address] | | | SERVICES, CORE | PARK [...] | + + + + + | [facility] | [address] | [place] [address] | | | SERVICES, JANELL | [address] [...] | | | LABORATORY | | | VINCENTIAN | | | SERVICES, | | | [...] the MDRD equation recommended by the | [facility] | | National Kidney Disease Education [...] [facility]ENTER [facility] | [address] | [place] [address] | | | SERVICES, CORE | [address] | | | + + + + + INR (05/01/2014 2:45 AM PST) + +-------+ + + + | Component | Value | Ref Range | Performed | Pathologist | | | | | At | Signature | + +-------+ + + + | INR | 1.14 | 0.90 - 1.20 INR | [facility] | | | | | | LABORATORY [...] [facility] | [address] | [place] [address] | | | JANELL SHARP | BERTRAM [...] [facility] | [address] | [place] | | | [facility] | [address] | [address] | | | TESTS | | | [...] + + + | X-RAY | STUDY: IN CHEST 1 VIEW | | | | [...] [facility] | [address] | [place] [address] | | | SERVICES, CORE | PARK [...] | [facility] | [address] [facility] | [place] [address] | | | SERVICES, JANELL | BERTRAM [...] [facility] | [address] | [place] [address] | | | SERVICES, CORE | [address] [...] | | | LABORATORY | | | VINCENTIAN | | | SERVICES, | | | [...] | + + + + + | [facility] | [address] [facility] | [place] [address] | | | SERVICES, CORE | [address] [...] | | | LABORATORY | | | VINCENTIAN | | | SERVICES, | | | [...] [facility] | [address] | [place] [address] | | | ARON, JANELL | BERTRAM [...] MARILYN | [address] | [place] | | | [facility] | [facility] | [address] | | | TESTS | | | [...] [facility] | [address] | [place] [address] | | | SERVICES, CORE | PARK [...] [facility] | [address] | [place] [address] | | | SERVICES, CORE | PARK [...] | | | LABORATORY | | | VINCENTIAN | | | SERVICES, | | | [...] | + + + + + | [facility] | [address] | [place] [address] | | | SERVICES, CORE | BERTRAM [...] | [facility] | [address] [facility] | [place] [address] | | | SERVICES, JANELL | [address] [...] | + + + + + | [facility] | [address] | [place] [address] | | | [facility], JANELL | [address] | | [...] S[facility]ERS | [address] | [place] | | | [facility] | [facility] | [address] | | | TESTS | | | [...] [facility] | [address] | [place] [address] | | | SERVICES, CORE | PARK [...] [facility] | [address] | [place] [address] | | | SERVICES, CORE | PARK [...] [facility] | [address] | [place] [address] | | | SERVICES, CORE | PARK [...] [facility] | [address] | [place] [address] | | | SERVICES, CORE | PARK [...] | | | LABORATORY | | | VINCENTIAN | | | SERVICES, | | | [...] | + + + + + | [facility] | [address] [facility] | [place] [address] | | | SERVICES, CORE | [address] [...] | + + + + + | [facility] | [address] [facility] | [place] [address] | | | ARON, CORE | [address] [...] | [facility] | [address] [facility] | [place] [address] | | | JANELL SHARP | [address] [...] | + + + + + | [facility] | [address] | [place] [address] | | | SERVICES, CORE | BERTRAM [...] S[facility]ERS | [address] | [place] | | | [facility] | [facility] | [address] | | | TESTS | | | | + + + + + X-RAY ABD LTD FEEDING TUBE EVAL PORTABLE (04/27/2014 10:33 AM PST) + + + + + + | Component | Value | Ref Range | Performed | Pathologist | | | | | At | Signature | + + + + + + | X-RAY ABD | STUDY: IN ABD LTD | | | | | [...] | + + + + + | [facility] | [address] | [place] [address] | | | SERVICES, CORE | BERTRAM [...] | + + + + + | [facility] | [address] | [place] [address] | | | JANELL SHARP | BERTRAM [...] | + + + + + | [facility] | [address] | [place] [address] | | | SERVICES, CORE | BERTRAM [...] [facility] | [address] | [place] [address] | | | SERVICES, CORE | PARK [...] | | | LABORATORY | | | VINCENTIAN | | | SERVICES, | | | [...] + + | [facility] | [address] [facility] | [place] [address] | | | SERVICES, CORE | BERTRAM [...] [facility] | [address] | [place] [address] | | | SERVICES, JANELL | [address] [...] | + + + + + | [facility] | [address] [facility] | [place] [address] | | | SERVICES, CORE | [address] [...] | + + + + + | [facility] | [address] | [place] [address] | | | SERVICES, CORE | PARK [...] | + + + + + | [facility] | [address] [facility] | [place] [address] | | | SERVICES, CORE | [address] | | | + + + + + MAGNESIUM, PLASMA (04/26/2014 7:41 PM PST) + +-------+ + + + | Component | Value | Ref Range | Performed | Pathologist | | | | | At | Signature | + +-------+ + + + | MAGNESIUM,P | 2.0 | 1.8 - 2.5 mg/dL | [facility] | | | [facility] | | | [...] [facility] | [address] | [place] [address] | | | SERVICES, CORE | PARK [...] | | | LABORATORY | | | VINCENTIAN | | | SERVICES, | | | [...] | + + + + + | [facility] | [address] | [place] [address] | | | SERVICES, JANELL | [address] [...] PRIMARY | | | | | | INVENTORY COORDINATOR: Rudy | | | | | | [...] [facility] | [address] | [place], [place] | | | OSCAR POINT OF CARE | [address] | [address] | | | TESTS | | | [...] | + + + + + | [facility] | [address] | [place] [address] | | | SERVICES, CORE | BERTRAM [...] | | | | | | Kirstie Lincoln | | | | + + + [...] [facility] | [address] | [place] [address] | | | SERVICES, JANELL | [address] [...] [facility] | [address] | [place] [address] | | | SERVICES, CORE | [address] [...] | + + + + + | [facility] | [address] | [place] [address] | | | SERVICES, CORE | [address] [...] | + + + + + | [facility] | [address] | [place] [address] | | | SERVICES, CORE | PARK [...] [facility] | [address] | [place] [address] | | | SERVICES, CORE | PARK [...] | | | LABORATORY | | | VINCENTIAN | | | SERVICES, | | | [...] + + + | [facility] | [address] | [place] [address] | | | ARON, JANELL | [address] [...] [facility] | [address] | [place] [address] | | | SERVICES, CORE | PARK [...] [facility]ENTER [facility] | [address] | [place] [address] | | | JANELL SHARP | PARK [...] - [facility] | [address] | [place], [place] | | | [facility] | [address] | [address] | | | TESTS | | | [...] | | | LABORATORY | | | VINCENTIAN | | | SERVICES, | | | [...] | + + + + + | [facility] | [address] [facility] | [place] [address] | | | JANELL SHARP | BERTRAM [...] SANDERS | [address] | [place], [place] | | | [facility] CARE | [address] | [address] | | | TESTS | | | [...] ARTUR GARDNER | [address] | [place] [address] | | | SERVICES, CORE | BERTRAM [...] | + + + + + | [facility] | [address] | [place] [address] | | | SERVICES, CORE | BERTRAM [...] + + + + | PRODUCT | [id number] | | [facility] | | | UNIT [...] + + + + | BLOOD | [id number] | | [facility] | | | PRODUCT [...] DEPARTMENT OF | [address] | [place] [address] | | | PATHOLOGY | [address] [...] + + + + | PRODUCT | [id number] | | [facility] | | | UNIT [...] + + + + | BLOOD | [id number] | | [facility] | | | PRODUCT [...] | [facility]PART[facility] | [address] | [place] [address] | | | PATHOLOGY | [address] [...] | + + + + + | [facility] | [address] | [place] [address] | | | SERVICES, CORE | PARK [...] | + + + + + | [facility] | [address] | [place] [address] | | | SERVICES, CORE | BERTRAM [...] | | | LABORATORY | | | VINCENTIAN | | | SERVICES, | | | [...] the MDRD equation recommended by the | [facility] | | National Kidney Disease Education [...] CENTER LABORATORY | [address] | [place] [address] | | | JANELL SHARP | BERTRAM [...] [facility] | [address] | [place] [address] | | | SERVICES, CORE | PARK [...] [facility] | [address] | [place] [address] | | | SERVICES, CORE | PARK [...] [facility] | [address] | [place] [address] | | | SERVICES, CORE | PARK [...] + | [facility] | [address] | [place] [address] | | | SERVICES, JANELL | BERTRAM [...] MARQUAM | [address] | [place], [place] | | | [facility] CARE | [facility] | [address] | | | TESTS | | | [...] + + + | ART[facility] SANDERS | [address] | [place] | | | [facility] | [address] | [address] | | | TESTS | | | [...] CENTER LABORATORY | [address] | [place] [address] | | | SERVICES, CORE | PARK [...] | + + + + + | [facility] | [address] | [place] [address] | | | JANELL SHARP | BERTRAM [...] | [facility] | [address] [facility] | [place] [address] | | | SERVICES, CORE | PARK [...] CENTER LABORATORY | [address] | [place] [address] | | | JANELL SHARP | [address] | | | + + + + + X-RAY PORTABLE CHEST 1 VIEW (04/24/2014 5:32 AM PST) + + + + + + | Component | Value | Ref Range | Performed | Pathologist | | | | | At | Signature | + + + + + + | X-RAY | STUDY: IN CHEST 1 VIEW | | | | [...] | + + + + + | [facility] | [address] | [place] [address] | | | SERVICES, JANELL | BERTRAM [...] | | | LABORATORY | | | VINCENTIAN | | | SERVICES, | | | [...] CENTER LABORATORY | [address] | [place] [address] | | | SERVICES, CORE | PARK [...] | + + + + + | [facility] | [address] | [place] [address] | | | SERVICES, CORE | PARK [...] | + + + + + | [facility] | [address] | [place] [address] | | | SERVICES, CORE | BERTRAM [...] [facility] | [address] | [place], [place] | | | THERAPY | [address] | [address] | | + + + + + [...] + + | [facility] | [address] [facility] | [place], [place] | | | THERAPY | [address] | [address] | | + + + + + [...] | | | LABORATORY | | | VINCENTIAN | | | SERVICES, | | | [...] the MDRD equation recommended by the | [facility] | | National Kidney Disease Education Program. [...] CENTER LABORATORY | [address] | [place] [address] | | | JANELL SHARP | BERTRAM [...] LABORATORY | [address] | [place] [address] | | | SERVICES, CORE | PARK [...] | + + + + + | [facility] | [address] | [place] [address] | | | SERVICES, CORE | BERTRAM [...] (L) | 36.0 - 46.0 % | [facility] | | | | | | LABORATORY [...] | [facility] | [address] [facility] | [place] [address] | | | SERVICES, CORE | PARK [...] | + + + + + | [facility] | [address] | [place] [address] | | | SERVICES, CORE | BERTRAM [...] [facility] | [address] | [place] [address] | | | SERVICES, CORE | PARK [...] [facility] | [address] | [place] [address] | | | SERVICES, CORE | PARK [...] | | | LABORATORY | | | VINCENTIAN | | | SERVICES, | | | [...] | + + + + + | [facility] | [address] | [place] [address] | | | SERVICES, CORE | BERTRAM [...] CENTER LABORATORY | [address] | [place] [address] | | | ARON, JANELL | BERTRAM [...] SANDERS | [address] | [place], [place] | | | [facility] [place] [facility] | [facility] | [address] | | | TESTS | | | [...] PRIMARY | | | | | | INVENTORY COORDINATOR: Rudy | | | | | | [...] 5 | | | | | | Zambian vascular sheath | | | | | [...] | | | | for a 5 [place]ian | | | | | | IMAcatheter. [...] | | | | artery. A 3 [place]ian | | | | | | microcatheterwas [...] + + | [facility] | [address] | [place], [place] | | | CARDIOLOGY | [address] | [address] | | + + + + + [...] + + + + | PRODUCT | [id number] | | [facility] | | | UNIT [...] + + + + | BLOOD | [id number] | | [facility] | | | PRODUCT [...] [facility] DEPARTMENT | [address] | [place] [address] | | | PATHOLOGY | [address] [...] + + + + | PRODUCT | [id number] | | [facility] | | | UNIT [...] + + + + | BLOOD | [id number] | | [facility] | | | PRODUCT [...] | + + + + + | [facility] | [address] | [place] [address] | | | PATHOLOGY | [address] [...] + + + + | PRODUCT | [id number] | | [facility] | | | UNIT [...] + + + + | BLOOD | [id number] | | [facility] | | | PRODUCT [...] [facility] DEPART[facility] | [address] | [place] [address] | | | PATHOLOGY | [address] [...] + + + + | PRODUCT | [id number] | | [facility] | | | UNIT [...] + + + + | BLOOD | [id number] | | [facility] | | | PRODUCT [...] | [facility] DEPARTMENT OF | [address] | [place] [address] | | | PATHOLOGY | [address] [...] + + + + | PRODUCT | [id number] | | [facility] | | | UNIT [...] + + + + | BLOOD | [id number] | | [facility] | | | PRODUCT [...] [facility] DEPART[facility] | [address] | [place] [address] | | | PATHOLOGY | [address] [...] + + + + | PRODUCT | [id number] | | [facility] | | | UNIT [...] + + + + | BLOOD | [id number] | | [facility] | | | PRODUCT [...] | [facility] DEPARTMENT OF | [address] | [place] [address] | | | PATHOLOGY | [address] | | | + + + + + X-RAY PORTABLE CHEST 1 VIEW (04/23/2014 11:41 AM PST) + + + + + + | Component | Value | Ref Range | Performed | Pathologist | | | | | At | Signature | + + + + + + | X-RAY | EXAM: IN CHEST 1 VIEW | | | | [...] + + + + | PRODUCT | [id number] | | [facility] | | | UNIT [...] + + + + | BLOOD | [id number] | | [facility] | | | PRODUCT [...] DEPARTMENT OF | [address] | [place] [address] | | | PATHOLOGY | [address] [...] + + + + | PRODUCT | [id number] | | [facility] | | | UNIT [...] + + + + | BLOOD | [id number] | | [facility] | | | PRODUCT [...] | [facility] DEPARTMENT OF | [address] | [place] [address] | | | PATHOLOGY | [address] [...] + + + + | PRODUCT | [id number] | | [facility] | | | UNIT [...] + + + + | BLOOD | [id number] | | [facility] | | | PRODUCT [...] | [facility] DEPARTMENT OF | [address] | [place] [address] | | | PATHOLOGY | [address] [...] + + + + | PRODUCT | [id number] | | [facility] | | | UNIT [...] + + + + | BLOOD | [id number] | | [facility] | | | PRODUCT [...] | + + + + + | [facility] | [address] | [place] [address] | | | PATHOLOGY | [address] [...] + + + + | PRODUCT | [id number] | | [facility] | | | UNIT [...] + + + + | BLOOD | [id number] | | [facility] | | | PRODUCT [...] [facility] DE[facility] | [address] | [place] [address] | | | PATHOLOGY | [address] [...] + + + + | PRODUCT | [id number] | | [facility] | | | UNIT [...] + + + + | BLOOD | [id number] | | [facility] | | | PRODUCT [...] | + + + + + | [facility] | [address] | [place] [address] | | | PATHOLOGY | [address] [...] + + + + | PRODUCT | [id number] | | [facility] | | | UNIT [...] + + + + | BLOOD | [id number] | | [facility] | | | PRODUCT [...] [facility] DE[facility] | [address] | [place] [address] | | | PATHOLOGY | [address] [...] + + + + | PRODUCT | [id number] | | [facility] | | | UNIT [...] + + + + | BLOOD | [id number] | | [facility] | | | PRODUCT [...] | + + + + + | [facility] | [address] | [place] [address] | | | PATHOLOGY | [address] [...] + + + + | PRODUCT | [id number] | | [facility] | | | UNIT [...] + + + + | BLOOD | [id number] | | [facility] | | | PRODUCT [...] [facility] | [address] | [place] [address] | | | PATHOLOGY | [address] [...] + + + + | PRODUCT | [id number] | | [facility] | | | UNIT [...] + + + + | BLOOD | [id number] | | [facility] | | | PRODUCT [...] | + + + + + | [facility] | [address] | [place] [address] | | | PATHOLOGY | [address] [...] + + + + | PRODUCT | [id number] | | [facility] | | | UNIT [...] + + + + | BLOOD | [id number] | | [facility] | | | PRODUCT [...] [facility] | [address] | [place] [address] | | | PATHOLOGY | [address] [...] + + + + | PRODUCT | [id number] | | [facility] | | | UNIT [...] + + + + | BLOOD | [id number] | | [facility] | | | PRODUCT [...] | [facility] DEPARTMENT OF | [address] | [place] [address] | | | PATHOLOGY | [address] [...] + + + + | PRODUCT | [id number] | | [facility] | | | UNIT [...] + + + + | BLOOD | [id number] | | [facility] | | | PRODUCT [...] [facility] DEPART[facility] | [address] | [place] [address] | | | PATHOLOGY | [address] [...] + + + + | PRODUCT | [id number] | | [facility] | | | UNIT [...] + + + + | BLOOD | [id number] | | [facility] | | | PRODUCT [...] | + + + + + | [facility] | [address] | [place] [address] | | | PATHOLOGY | [address] [...] [facility] | [address] | [place] [address] | | | SERVICES, CORE | PARK [...] [facility] | [address] | [place] [address] | | | SERVICES, CORE | PARK [...] most patients with mech. valves (2.5 | [facility], CORE | | - 3.5) INR [...] CENTER LABORATORY | [address] | [place] [address] | | | JANELL SHARP | [address]TRAM [...] | | | LABORATORY | | | VINCENTIAN | | | SERVICES, | | | [...] [facility] | [address] | [place] [address] | | | SERVICES, CORE | PARK [...] [facility] | [address] | [place] [address] | | | SERVICES, CORE | PARK [...] [facility] | [address] | [place] [address] | | | SERVICES, CORE | PARK [...] CENTER LABORATORY | [address] | [place] [address] | | | JANELL SHARP | BERTRAM [...] 89 | 60 - 99 mg/dL | [facility] [...] [facility] | [address] | [place] | | | OSCAR POINT OF CARE | [address] | [address] | | | TESTS | | | [...] | + + + + + | [facility] | [address] | [place] [address] | | | ARON, | [address] [...] CENTER LABORATORY | [address] | [place] [address] | | | SERVICES, | [address] [...] + + + + | PRODUCT | [id number] | | [facility] | | | UNIT [...] + + + + | BLOOD | [id number] | | [facility] | | | PRODUCT [...] | + + + + + | [facility] | [address] | [place] [address] | | | PATHOLOGY | [address] [...] + + + + | PRODUCT | [id number] | | [facility] | | | UNIT [...] + + + + | BLOOD | [id number] | | [facility] | | | PRODUCT [...] DEPARTMENT OF | [address] | [place] [address] | | | PATHOLOGY | [address] [...] + + + + | PRODUCT | [id number] | | [facility] | | | UNIT [...] + + + + | BLOOD | [id number] | | [facility] | | | PRODUCT [...] | + + + + + | [facility] | [address] | [place] [address] | | | PATHOLOGY | [address] [...] + + + + | PRODUCT | [id number] | | [facility] | | | UNIT [...] + + + + | BLOOD | [id number] | | [facility] | | | PRODUCT [...] DEPARTMENT OF | [address] | [place] [address] | | | PATHOLOGY | [address] [...] + + + + | PRODUCT | [id number] | | [facility] | | | UNIT [...] + + + + | BLOOD | [id number] | | [facility] | | | PRODUCT [...] | + + + + + | [facility] | [address] | [place] [address] | | | PATHOLOGY | [address] [...] + + + + | PRODUCT | [id number] | | [facility] | | | UNIT [...] + + + + | BLOOD | [id number] | | [facility] | | | PRODUCT [...] OF | [address] | [place] [address] | | | PATHOLOGY | [address] [...]
--- OUTSIDE RECORDS SUMMARY | ~2019-03-09 | XMS | Encounter Summary ---
Demographics + + + | Address | [address] | | | [place] [address] | + + + | Home Phone | | + + + | Preferred Language | Unknown | + + + | Marital Status | | + + + | Restorationism Affiliation | Unknown | + + + | Race | Unknown | + + + | Ethnic Group | Unknown | + + + Author + + + | Author | [facility] | | | and [place] | + + + | Organization | [facility] | | [...] Team Providers + +------+ + | Care Sock Mender Name | Role | Phone | + [...] Unknown | | | | | [place], [place] | [phone] | | | | | [address] | | | | | | [phone] | | | +--------+ + + + [...]
--- OUTSIDE RECORDS SUMMARY | ~2019-03-09 | XMS | Encounter Summary ---
Demographics + + + | Address | [address] | | | [place] [address] | + + + | Home Phone | | + + + | Preferred Language | Unknown | + + + | Marital Status | | + + + | Yazdanism Affiliation | Unknown | + + + | Race | Unknown | + + + | Ethnic Group | Unknown | + + + Author + + + | Author | [facility] | | | and [place] | + + + | Organization | [facility] | | [...] Team Providers + +------+ + | Care Mechanical Engineering Professor Name | Role | Phone | + [...] Unknown | | | | | [place], [place] | [phone] | | | | | [address] | | | | | | [phone] | | | +--------+ + + + [...]
--- OUTSIDE RECORDS SUMMARY | ~2019-03-09 | XMS | Encounter Summary ---
Demographics + + + | Address | [address] | | | [place] [address] | + + + | Home Phone | | + + + | Preferred Language | Unknown | + + + | Marital Status | | + + + | Zoroastrianism Affiliation | Unknown | + + + [...] Team Providers + +------+ + | Care Road Maker Name | Role | Phone | [...] Unknown | | | | | [place], [place] | [phone] | | | | | [address] | | | | | | [phone] | | | +--------+ + + + [...]
--- OUTSIDE RECORDS SUMMARY | ~2019-03-09 | XMS | Encounter Summary ---
Demographics + + + | Address | [address] | | | [place] [address] | + + + | Home Phone | | + + + | Preferred Language | Unknown | + + + | Marital Status | | + + + | Mormonism Affiliation | Unknown | + + + [...] Team Providers + +------+ + | Care Traffic Control Supervisor Name | Role | Phone | [...] Provider Unknown | | | | | [place], [place] | [phone] | | | | | [address] | | | | | | [phone] | | | +--------+ + + + [...] | | | | | | [place] [address] | | | | | | [phone] | | | | | | | [...]
--- OUTSIDE RECORDS SUMMARY | ~2019-03-09 | XMS | Encounter Summary ---
Demographics + + + | Address | [address] | | | [place] [address] | + + + | Home Phone [...] Team Providers + +------+ + | Care Wild Oyster Harvester Name | Role | Phone | + +------+ + PCP | Unavailable | + +------+ + Encounter Details +--------+ + + + + | Date | Type | Department | Care Team | Description | +--------+ + + + + | 04/10/ | Hospital | [facility] | Ro Davidson MD | Pyelonephritis | | 2015 - | Encounter | MEDICAL CENTER | [address] | | | | | CLINICAL DECISION | [place] [address] | | | 07/22/ | | [address] | [phone] | | | 2014 | | [place], [place] | | | | | | [address] | | | | | | [phone] | | | +--------+ + + + [...] different from valentin espinoza. Discharge Summaries by oCmpa Jules MD at 07/22/14 1271 Author: Compa Jules MD Service: (none) Author Type: Physician Filed: 08/14/14 120 Date of Service: 07/22/14 7582 Status: Signed Lens Finisher: Compa Jules MD (Physician) Related Notes: Original Note by Compa Jules MD (Physician) filed at 07/22/14 1259 [facility] Service: Hospitalist Physician Discharge Summary Patient ID: Mackenzie Willingham [id number] 58 y.o. 1955 Admit date: 07/19/2014 Discharge [...] Follow up: Neel Fernandes MD [address] [place] [address] [place] [address] Raphael Gan DO [address] 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 You may get the following medications [...] (none) Author Type: Registered Nurse Filed: 07/22/14 8746 Date of Service: 07/22/141334 Status: Signed Lens Finisher: Leelee Fermin RN (Registered Nurse) Patient received discharge teaching with no questions or concerns. Patient left via private vehicle with daughter. Leelee Fermin RN onver roshan Transaction, Provider Unknown - 07/22/2014 1:06 PM PDT Case Management by Kateryna Salazar RN at 07/22/14 1272 Author: Kateryna Salazar RN Service: (none) Author Type: Registered Nurse Filed: 07/22/14 1307 Date of Service: 07/22/14 1306 Status: Signed Lens Finisher: Kateryna Salazar RN (Registered Nurse) Patient requesting [...] Date of Service: 07/22/14 1155 Status: Signed Lens Finisher: Nadiya Smith PT (Physical Therapist) 07/22/14 1155 [...] Date of Service: 07/22/14 1043 Status: Signed Lens Finisher: Raphael Gan DO (Physician) [facility] Service: Infectious Disease Progress Note Hospital Day: LOS: 3 days Post-Op Day: * No surgery found * SUBJECTIVE Patient Summary: 58 y.o. female with significant past medical history of Crohn's dis ease on chronic prednisone 15 mg daily, COPD, gastroesophageal reflux disease, allergies to penicillin, levofloxacin, erythromycin who presented to [facility] with we akness and [...] 07/22/2014 EGFR >60 07/22/2014 Urine culture from [facility] shows pansensitive Escherichia coli with the exce [...] Notes by Compa Jules MD at 07/21/14 6668 Author: Compa Jules MD Service: (none) Author Type: Physician Filed: 07/21/14 1124 Date of Service: 07/21/14 1102 Status: Signed Lens Finisher: Compa Jules MD (Physician) [facility] Service: Hospitalist Progress Note Hospital Day: LOS: 2 days Consultants: Treatment Team: Consulting Physician: Raphael Gan DO Admitting Provider: Ro Davidson MD The first problem in assessment is the principal problem. ASSESSMENT/ PLAN 1. Systemic inflammatory response syndrome, urinary tract infection. Leukocytosis improving (patient does have some chronic leukocytosis). Continue with vancomycin, aztreonam for now. Received cultures, blood and urine from [place]. Blood cultures negative so far. Urine culture positive for lactose tubular riveter, sensitivities pending. Patient has multiple allergie s. [...] 4 months. She has to follow with specimen preparation assistant. 5. Chronic congestive heart failure, currently stable. Not decompensated at this point. Disposition: Home. Possibly the next 1-2 days Code Status: Full Code Dictation and automobile seat cover installer or software, GetPromotd, used which may contain error for similar [...] Date of Service: 07/21/14 1018 Status: Signed Lens Finisher: Vale Ladd RN (Registered Nurse) Pt much more awake and active today. Attempted to eat breakfast, using the commode to toil et, took shower. Still complains of headache and nausea. Vale Salgado onver roshan Transaction, Provider Unknown - 07/21/2014 9:16 AM PDT Case Management by LEVI Jerry at 07/21/14 0916 Author: LEVI Jerry Service: (none) Author Type: Vacuum Furnace Operator Filed: 07/21/1420 Date of Service: 07/21/14915 Status: Signed Lens Finisher: LEVI Jerry (Vacuum Furnace Operator) 07/21/14913 Discharge Planning Evaluation Admitting Diagnosis (Sepsis [...] care /care: Pt lives with her in [place]. Can provide all self-care/ADLs patients primary care [...] disease with hiatal hernia , Patient's insurance: Medicare[facility] recommendations / DME recommendations: N/A - No DME indicated at this time Community resources: Patient just started PT at the "rec center" in [place]. Assistance in transportation: Family can transport home. CM also spoke with pt's RN, Vale and she did not identify any d/c needs at this time. LEVI Jerry Compa Nam MD - 07/20/2014 4:57 PM PDTFormatting of this note might be different from the origi nal. Progress Notes by Compa Jules MD at 07/20/14 942 Author: Compa Jules MD Service: (none) Author Type: Physician Filed: 08/04/14 1307 Date of Service: 07/20/141656 Status: Signed Lens Finisher: Compa Jules MD (Physician) Related Notes: Original Note by Compa Jules MD (Physician) filed at 07/20/14 1700 [facility] Service: Hospitalist Progress Note Hospital Day: LOS: [...] 4 months. She has to follow with specimen preparation assistant. 5. Chronic congestive heart failure, currently stable. Not decompensated at this point. Disposition: Home. Pending above Code Status: Full Code Dictation and automobile seat cover installer or software, GetPromotd, used which may contain error for similar [...] 1334 Date of Service: 07/20/141316 Status: Signed Lens Finisher: Vale Ladd RN (Registered Nurse) Pt educated [...] 07/20/14715 Date of Service: 07/20/14715 Status: Signed Lens Finisher: Paula Barnes RPH (Pharmacist) Late entry for Vancomycin started last night by Crispin LUNA. Initiation of Vancomycin Pharmacy Dosing Mackenzie Willingham 58 y.o. female 1.753 m (5' 9") 64.32 kg (141 lb 12.8 oz) Body mass index is 20.93 kg/(m^2). [place] Body Weight: 66.2 kg Adjusted Body Weight: 64.3 kg CREATININE Date Value Ref Range Status 07/20/2014 0.76 0.50 - 1.00 mg/dL [place] [facility] [facility];[place] [address] Estimated CrCl : CREATININE: 0.76 (07/20/14 0354) [...] 07/19/142055 Date of Service: 07/19/142055 Status: Signed Lens Finisher: Hamilton Drummond RPH (Pharmacist) Note ccl 90.2ml/min meds reviewed Pharmacy will follow [facility] 2054 docume nted in this encounter Plan [...] | Testing performed | | | at [facility], [address] [place] [address] | | + + + + +---------+ [...] EXTERNAL | | | | performed at [facility], [address] | | LAB | | | | [address] [place], | | | | | | [place] [address] | | | | + + + + + + | Clarity | CLEARComment: Testing | | EXTERNAL | | | | performed at [facility], [address] | | LAB | | | | [address], | | | | | | [place] [address] | | | | + + + + + + | Specific | 1.009Comment: Testing | 1.002 - 1.030 | EXTERNAL | | | [place] | performed at [facility], [address] | | LAB | | | | [address], | | | | | | [place] [address] | | | | + + + + + + | Leukocyte | MODERATE (A)Comment: | | EXTERNAL | | | Esterase, | Testing performed at | | LAB | | | Urine | [facility], [address] [facility] | | | | | | [place] | | | | | | [address] | | | | + + + + + + | Nitrite, | NEGATIVEComment: Testing | | EXTERNAL | | | Urine | performed at [facility], [address] | | LAB | | | | [address], | | | | | | [place] [address] | | | | + + + + + + | Urobilinoge | 0.2Comment: Testing | mg/dL | EXTERNAL | | | n, Urine | performed at [facility], [address] | | LAB | | | | [address], | | | | | | [place] [address] | | | | + + + + + + | Protein, | NEGATIVEComment: Testing | mg/dL | EXTERNAL | | | Urine | performed at [facility], [address] | | LAB | | | | [address], | | | | | | [place] [address] | | | | + + + + + + | pH, Urine | 6.0Comment: Testing | 5.0 - 8.0 | EXTERNAL | | | | performed at [facility], [address] | | LAB | | | [address], | | | | | | [place] [address] | | | | + + + + + + | Blood, | NEGATIVEComment: Testing | | EXTERNAL | | | Urine | performed at [facility], [address] | | LAB | | | | [address], | | | | | | [place], [place] [address] | | | | + + + + + + | Ketones | NEGATIVEComment: Testing | mg/dL | EXTERNAL | | | | performed at [facility], [address] | | LAB | | | | [address], | | | | | | [place], [place] [address] | | | | + + + + + + | Bilirubin, | NEGATIVEComment: Testing | | EXTERNAL | | | Urine | performed at [facility], [address] | | LAB | | | | [address], | | | | | | [place], [place] [address] | | | | + + + + + + | Glucose, | NEGATIVEComment: Testing | mg/dL | EXTERNAL | | | Urine | performed at [facility], [address] | | LAB | | | | [address], | | | | | | [place], [place] [address] | | | | + + + [...] | | | | | [place] [address] | | | | + + + + + + | RBC, UA | 16-25Comment: Testing | 0 - 5 /hpf | EXTERNAL | | | | performed at [facility], [address] | | LAB | | | | [address], | | | | | | [place] [address] | | | | + + + + + + | Epithelial | 26-50Comment: Testing | /lpf | EXTERNAL | | | Cells | performed at [facility], [address] | | LAB | | | | [address], | | | | | | [place] [address] | | | | + + + + + + | Bacteria, | NONE SEENComment: | | EXTERNAL | | | UA | CULTURE TO FOLLOWTesting | | LAB | | | | performed at [facility], [address] | | | | | | [address], | | | | | | [place] [address] | | | | + + + + + + | HYALINE | NONE SEENComment: | | EXTERNAL | | | CASTS UA | Testing performed at | | LAB | | | | [facility], [address] [facility] | | | | | | [place] | | | | | | [address] | | | | + + + [...] | | | | | performed at [facility] | | | | | | [facility];[place], [place] | | | | | | [address] | | | | + + + [...] [place] | | | | | | [address] | | | | + + + [...] | | | | | [place] [address] | | | | + + + + + + | Hematocrit, | 40.1Comment: Testing | 34.0 - 46.0 % | EXTERNAL | | | POC | performed at [facility], [address] | | LAB | | | | [address], | | | | | | [place] [address] | | | | + + + + + + | MCV | 98.6Comment: Testing | 80.0 - 100.0 fl | EXTERNAL | | | | performed at [facility], [address] | | LAB | | | | [address], | | | | | | [place] [address] | | | | + + + + + + | MCH | 30.8Comment: Testing | 27.0 - 34.0 pg | EXTERNAL | | | | performed at [facility], [address] | | LAB | | | | [address], | | | | | | [place] [address] | | | | + + + + + + | MCHC | 31.2 (L)Comment: Testing | 32.0 - 35.5 | EXTERNAL | | | | performed at [facility], [address] | g/dL | LAB | | | | [address], | | | | | | [place] [address] | | | | + + + + + + | RDW-CV | 55.1 (H)Comment: Testing | 37 - 53 fl | EXTERNAL | | | | performed at [facility], [address] | | LAB | | | | [address], | | | | | | [place] [address] | | | | + + + + + + | Platelet | 309Comment: Testing | 150 - 400 K/uL | EXTERNAL | | | Count | performed at [facility], [address] | | LAB | | | Plasma | [address], | | | | | | [place] [address] | | | | + + + + + + | MPV | 8.7Comment: Testing | fl | EXTERNAL | | | | performed at [facility], [address] | | LAB | | | | [address], | | | | | | [place] [address] | | | | + + + + + + | Differentia | AUTOMATEDComment: | | EXTERNAL | | | l Type | Testing performed at | | LAB | | | | [facility], [address] | | | | | | [place] | | | | | | [address] | | | | + + + + + + | % Segmented | 72.50Comment: Testing | % | EXTERNAL | | | | performed at [facility], [address] | | LAB | | | Neutrophils | [address], | | | | | | [place] [address] | | | | + + + + + + | % | 19.86Comment: Testing | % | EXTERNAL | | | Lymphocytes | performed at [facility], [address] | | LAB | | | | [address], | | | | | | [place] [address] | | | | + + + + + + | % Monocytes | 7.00Comment: Testing | % | EXTERNAL | | | | performed at [facility], [address] | | LAB | | | | [address], | | | | | | [place] [address] | | | | + + + + + + | % | 0.21Comment: Testing | % | EXTERNAL | | | Eosinophils | performed at [facility], [address] | | LAB | | | | [address], | | | | | | [place] [address] | | | | + + + + + + | % Basophils | 0.43Comment: Testing | % | EXTERNAL | | | | performed at [facility], [address] | | LAB | | | | [address], | | | | | | [place] [address] | | | | + + + + + + | Absolute | 8.17 (H)Comment: Testing | 1.90 - 7.40 | EXTERNAL | | | Segmented | performed at [facility], [address] | K/uL | LAB | | | Neutrophils | [address], | | | | | | [place] [address] | | | | + + + + + + | Absolute | 2.24Comment: Testing | 1.00 - 3.90 | EXTERNAL | | | Lymphocytes | performed at [facility], [address] | K/uL | LAB | | | | [address], | | | | | | [place] [address] | | | | + + + + + + | Absolute | 0.79Comment: Testing | 0.00 - 0.80 | EXTERNAL | | | Monocytes | performed at [facility], [address] | K/uL | LAB | | | | [address], | | | | | | [place] [address] | | | | + + + + + + | Absolute | 0.02Comment: Testing | 0.00 - 0.50 | EXTERNAL | | | Eosinophils | performed at [facility], [address] | K/uL | LAB | | | | [address], | | | | | | [place] [address] | | | | + + + + + + | Absolute | 0.05Comment: Testing | 0.00 - 0.10 | EXTERNAL | | | Basophils | performed at [facility], [address] | K/uL | LAB | | | | [address], | | | | | | [place] [address] | | | | + + + [...] EXTERNAL | | | | performed at [facility], [address] | | LAB | | | | [address], | | | | | | [place] [address] | | | | + + + [...] EXTERNAL | | | | performed at [facility], [address] | | LAB | | | | [address], | | | | | | [place] [address] | | | | + + + [...] | | | | | [place] [address] | | | | + + + + + + | K | 3.9Comment: Testing | 3.5 - 4.9 | EXTERNAL | | | | performed at [facility], [address] | mmol/L | LAB | | | | [address], | | | | | | [place] [address] | | | | + + + + + + | Cl | 106Comment: Testing | 99 - 109 mmol/L | EXTERNAL | | | | performed at [facility], [address] | | LAB | | | | [address], | | | | | | [place] [address] | | | | + + + + + + | CO2 | 20 (L)Comment: Testing | 23 - 32 mmol/L | EXTERNAL | | | | performed at [facility], [address] | | LAB | | | | [address], | | | | | | [place] [address] | | | | + + + [...] | | | | | [place] [address] | | | | + + + + + + | BUN | 19Comment: Testing | 8 - 25 mg/dL | EXTERNAL | | | | performed at [facility], [address] | | LAB | | | | [address], | | | | | | [place] [address] | | | | + + + + + + | Creatinine | 0.69Comment: Testing | 0.50 - 1.00 | EXTERNAL | | | | performed at [facility], [address] | mg/dL | LAB | | | | [address], | | | | | | [place] [address] | | | | + + + + + + | BUN/Creatin | 28Comment: Testing | | EXTERNAL | | | ine Ratio | performed at [facility], [address] | | LAB | | | | [address], | | | | | | [place] [address] | | | | + + + + + + | Calcium | 8.5Comment: Testing | 8.5 - 10.5 | EXTERNAL | | | | performed at [facility], [address] | mg/dL | LAB | | | | [address], | | | | | | [place] [address] | | | | + + + + + + | Protein, | 5.9 (L)Comment: Testing | 6.3 - 8.2 g/dL | EXTERNAL | | | Total | performed at [facility], [address] | | LAB | | | | [address], | | | | | | [place] [address] | | | | + + + + + + | Albumin | 2.8 (L)Comment: Testing | 3.6 - 5.0 g/dL | EXTERNAL | | | | performed at [facility], [address] | | LAB | | | | [address], | | | | | | [place] [address] | | | | + + + + + + | Globulin | 3.1Comment: Testing | 1.3 - 4.9 g/dL | EXTERNAL | | | | performed at [facility], [address] | | LAB | | | | [address], | | | | | | [place] [address] | | | | + + + + + + | A/G Ratio | 0.9 (L)Comment: Testing | 1.0 - 2.4 | EXTERNAL | | | | performed at [facility], [address] | | LAB | | | | [address], | | | | | | [place] [address] | | | | + + + + + + | Bilirubin | 0.4Comment: Testing | 0.1 - 1.5 mg/dL | EXTERNAL | | | Total | performed at [facility], [address] | | LAB | | | | [address], | | | | | | [place] [address] | | | | + + + + + + | ALP, | 124 (H)Comment: Testing | 35 - 115 U/L | EXTERNAL | | | External | performed at [facility], [address] | | LAB | | | | [address], | | | | | | [place] [address] | | | | + + + + + + | AST | 18Comment: Testing | 10 - 45 U/L | EXTERNAL | | | | performed at [facility], [address] | | LAB | | | | [address], | | | | | | [place] [address] | | | | + + + + + + | ALT | 13Comment: Testing | 10 - 65 U/L | EXTERNAL | | | | performed at [facility], [address] | | LAB | | | | [facility], | | | | | | [place] [address] | | | | + + + [...] | | | | | | at [facility], [address] | | | | | | [address] [facility], | | | | | | [place] [address] | | | | + + + [...] | | | | | performed at [facility] | | | | | | [address] [facility];[place], [place] | | | | | | [address] | | | | + + + [...] K/uL | LAB | | | | [facility];[address] | | [address];[place] [address] | | | | + + + + + + | RED CELL | 4.10Comment: Testing | 3.70 - 5.10 | EXTERNAL | | | COUNT | performed at [facility];[address] | M/uL | LAB | | | | [address];[place] | | | | | | [address] | | | | + + + + + + | Hgb | 12.9Comment: Testing | 11.3 - 15.5 | EXTERNAL | | | | performed at [facility];[address] | g/dL | LAB | | | | [address];[place] | | | | | | [address] | | | | + + + + + + | Hematocrit, | 40.0Comment: Testing | 34.0 - 46.0 % | EXTERNAL | | | POC | performed at [facility];[address] | | LAB | | | | [address];[place] | | | | | | [address] | | | | + + + + + + | MCV | 97.6Comment: Testing | 80.0 - 100.0 fl | EXTERNAL | | | | performed at [facility];[address] | | LAB | | | | [address];[place] | | | | | | [address] | | | | + + + + + + | MCH | 31.4Comment: Testing | 27.0 - 34.0 pg | EXTERNAL | | | | performed at [facility];[address] | | LAB | | | | [address];[place] | | | | | | [address] | | | | + + + + + + | MCHC | 32.1Comment: Testing | 32.0 - 35.5 | EXTERNAL | | | | performed at [facility];[address] | g/dL | LAB | | | | [address];[place] | | | | | | [address] | | | | + + + + + + | RDW-CV | 56.0 (H)Comment: Testing | 37 - 53 fl | EXTERNAL | | | | performed at [facility];[address] | | LAB | | | | [address];[place] | | | | | | [address] | | | | + + + + + + | Platelet | 323Comment: Testing | 150 - 400 K/uL | EXTERNAL | | | Count | performed at [facility];[address] | | LAB | | | Plasma | [address];[place] | | | | | | [address] | | | | + + + + + + | MPV | 7.9Comment: Testing | fl | EXTERNAL | | | | performed at [facility];[address] | | LAB | | | | [address];[place] | | | | | | [address] | | | | + + + + + + | Differentia | AUTOMATEDComment: | | EXTERNAL | | | l Type | Testing performed at | | LAB | | | | [facility];[address];[place] [address] | | | | + + + + + + | % Segmented | 72.96Comment: Testing | % | EXTERNAL | | | | performed at [facility];[address] | | LAB | | | Neutrophils | [address];[place] | | | | | | [address] | | | | + + + + + + | % | 19.69Comment: Testing | % | EXTERNAL | | | Lymphocytes | performed at [facility];[address] | | LAB | | | | [address];[place] | | | | | | [address] | | | | + + + + + + | % Monocytes | 6.53Comment: Testing | % | EXTERNAL | | | | performed at [facility];[address] | | LAB | | | | [address];[place] | | | | | | [address] | | | | + + + + + + | % | 0.04Comment: Testing | % | EXTERNAL | | | Eosinophils | performed at [facility];[address] | | LAB | | | | [address];[place] | | | | | | [address] | | | | + + + + + + | % Basophils | 0.78Comment: Testing | % | EXTERNAL | | | | performed at [facility];[address] | | LAB | | | | [address];[place] | | | | | | [address] | | | | + + + + + + | Absolute | 9.79 (H)Comment: Testing | 1.90 - 7.40 | EXTERNAL | | | Segmented | performed at [facility];[address] | K/uL | LAB | | | Neutrophils | [address];[place] | | | | | | [address] | | | | + + + + + + | Absolute | 2.64Comment: Testing | 1.00 - 3.90 | EXTERNAL | | | Lymphocytes | performed at [facility];[address] | K/uL | LAB | | | | [address];[place] | | | | | | [address] | | | | + + + + + + | Absolute | 0.88 (H)Comment: Testing | 0.00 - 0.80 | EXTERNAL | | | Monocytes | performed at [facility];[address] | K/uL | LAB | | | | [address];[place] | | | | | | [address] | | | | + + + + + + | Absolute | 0.01Comment: Testing | 0.00 - 0.50 | EXTERNAL | | | Eosinophils | performed at [facility];[address] | K/uL | LAB | | | | [address];[place] | | | | | | [address] | | | | + + + + + + | Absolute | 0.11 (H)Comment: Testing | 0.00 - 0.10 | EXTERNAL | | | Basophils | performed at [facility];[address] | K/uL | LAB | | | | [address];[place] | | | | | | [address] | | | | + + + [...] EXTERNAL | | | | performed at [facility];[address] | | LAB | | | | [address];[place], [place] | | | | | | [address] | | | | + + + [...] EXTERNAL | | | | performed at [facility];[address] | | LAB | | | | [address];[place], [place] | | | | | | [address] | | | | + + + [...] EXTERNAL | | | | performed at [facility];[address] | mmol/L | LAB | | | | [address];[place] | | | | | | [address] | | | | + + + + + + | K | 4.0Comment: Testing | 3.5 - 4.9 | EXTERNAL | | | | performed at [facility] [place] | mmol/L | LAB | | | | [address];[place] | | | | | | [id number] | | | | + + + + + + | Cl | 110 (H)Comment: Testing | 99 - 109 mmol/L | EXTERNAL | | | | performed at [facility] [place] | | LAB | | | | [address];[place] | | | | | | [address] | | | | + + + + + + | CO2 | 23Comment: Testing | 23 - 32 mmol/L | EXTERNAL | | | | performed at [facility] [place] | | LAB | | | | [address];[place] | | | | | | [id number] | | | | + + + + + + | Anion Gap | 12Comment: Testing | 5 - 20 mmol/L | EXTERNAL | | | | performed at [facility] [place] | | LAB | | | | [address];[place] | | | | | | [address] | | | | + + + + + + | Glucose, | 97Comment: Testing | 65 - 99 mg/dL | EXTERNAL | | | Fasting | performed at [facility] [place] | | LAB | | | | [address];[place] | | | | | | [address] | | | | + + + + + + | BUN | 19Comment: Testing | 8 - 25 mg/dL | EXTERNAL | | | | performed at [facility] [facility] | | LAB | | | | [address];[place] | | | | | | [address] | | | | + + + + + + | Creatinine | 0.84Comment: Testing | 0.50 - 1.00 | EXTERNAL | | | | performed at [facility] | mg/dL | LAB | | | | [address];[place] | | | | | | [address] | | | | + + + + + + | BUN/Creatin | 23Comment: Testing | | EXTERNAL | | | ine Ratio | performed at [facility] | | LAB | | | | [address];[place] | | | | | | [address] | | | | + + + + + + | Calcium | 8.1 (L)Comment: Testing | 8.5 - 10.5 | EXTERNAL | | | | performed at [facility] | mg/dL | LAB | | | | [address];[place] | | | | | | [address] | | | | + + + + + + | Protein, | 6.5Comment: Testing | 6.3 - 8.2 g/dL | EXTERNAL | | | Total | performed at [facility] | | LAB | | | | [address];[place] | | | | | | [address] | | | | + + + + + + | Albumin | 2.4 (L)Comment: Testing | 3.6 - 5.0 g/dL | EXTERNAL | | | | performed at [facility] | | LAB | | | | [address];[place] | | | | | | [address] | | | | + + + + + + | Globulin | 4.1Comment: Testing | 1.3 - 4.9 g/dL | EXTERNAL | | | | performed at [facility] | | LAB | | | | [address];[place] | | | | | | [address] | | | | + + + + + + | A/G Ratio | 0.6 (L)Comment: Testing | 1.0 - 2.4 | EXTERNAL | | | | performed at [facility] | | LAB | | | | [address];[place] | | | | | | [address] | | | | + + + + + + | Bilirubin | 0.5Comment: Testing | 0.1 - 1.5 mg/dL | EXTERNAL | | | Total | performed at [facility] | | LAB | | | | [address];[place] | | | | | | [address] | | | | + + + + + + | ALP, | 164 (H)Comment: Testing | 35 - 115 U/L | EXTERNAL | | | External | performed at [facility] | | LAB | | | | [address];[place] | | | | | | [address] | | | | + + + + + + | AST | 18Comment: Testing | 10 - 45 U/L | EXTERNAL | | | | performed at [facility] | | LAB | | | | [address];[place] | | | | | | [address] | | | | + + + + + + | ALT | 19Comment: Testing | 10 - 65 U/L | EXTERNAL | | | | performed at [facility] | | LAB | | | | [address];[place] | | | | | | [address] | | | | + + + [...] | | | | | | at [facility] [facility] | | | | | | [address];[place] [address] | | | | + + + [...] | | | | | performed at [facility] | | | | | | [facility];[place], [place] | | | | | | [address] | | | | + + + [...] EXTERNAL | | | | performed at [facility] | | LAB | | | | [facility];[place], [place] | | | | | | [address] | | | | + + + [...] | | | | | | at [facility] [place] [address] | | | | | | [facility];[place] [address] | | | | + + + [...] | | | | | performed at [facility] | | | | | | [address];[place], [place] | | | | | | [address] | | | | + + + [...] [place] | | | | | | [address] | | | | + + + + + + | RED CELL | 4.76Comment: Testing | 3.70 - 5.10 | EXTERNAL | | | COUNT | performed at [facility], [address] | M/uL | LAB | | | | [address], | | | | | | [place] [address] | | | | + + + + + + | Hgb | 15.1Comment: Testing | 11.3 - 15.5 | EXTERNAL | | | | performed at [facility], [address] | g/dL | LAB | | | | [address], | | | | | | [place] [address] | | | | + + + + + + | Hematocrit, | 45.6Comment: Testing | 34.0 - 46.0 % | EXTERNAL | | | POC | performed at [facility], [address] | | LAB | | | | [address], | | | | | | [place] [address] | | | | + + + + + + | MCV | 95.9Comment: Testing | 80.0 - 100.0 fl | EXTERNAL | | | | performed at [facility], [address] | | LAB | | | | [address], | | | | | | [place] [address] | | | | + + + + + + | MCH | 31.7Comment: Testing | 27.0 - 34.0 pg | EXTERNAL | | | | performed at [facility], [address] | | LAB | | | | [address], | | | | | | [place] [address] | | | | + + + + + + | MCHC | 33.1Comment: Testing | 32.0 - 35.5 | EXTERNAL | | | | performed at [facility], [address] | g/dL | LAB | | | | [address], | | | | | | [place] [address] | | | | + + + + + + | RDW-CV | 53.8 (H)Comment: Testing | 37 - 53 fl | EXTERNAL | | | | performed at [facility], [address] | | LAB | | | | [address], | | | | | | [place] [address] | | | | + + + + + + | Platelet | 355Comment: Testing | 150 - 400 K/uL | EXTERNAL | | | Count | performed at [facility], [address] | | LAB | | | Plasma | [address], | | | | | | [place] [address] | | | | + + + + + + | MPV | 8.4Comment: Testing | fl | EXTERNAL | | | | performed at [facility], [address] | | LAB | | | | [address], | | | | | | [place], [place] [address] | | | | + + + + + + | Differentia | MANUALComment: Testing | | EXTERNAL | | | l Type | performed at [facility], [address] | | LAB | | | | [address], | | | | | | [place] [address] | | | | + + + + + + | Segmented | 87Comment: Testing | % | EXTERNAL | | | Neutrophils | performed at [facility], [address] | | LAB | | | Manual | [address], | | | | | | [place] [address] | | | | + + + + + + | % Bands | 6Comment: Testing | % | EXTERNAL | | | | performed at [facility], [address] | | LAB | | | | [address], | | | | | | [place] [address] | | | | + + + + + + | Lymphocytes | 7Comment: Testing | % | EXTERNAL | | | Manual | performed at [facility], [address] | | LAB | | | | [address], | | | | | | [place] [address] | | | | + + + + + + | Absolute | 12.66 (H)Comment: | 1.90 - 7.40 | EXTERNAL | | | Neutrophils | Testing performed at | K/uL | LAB | | | | [facility], [address] | | | | | | [place] | | | | | | [address] | | | | + + + + + + | Bands | 0.87 (H)Comment: Testing | 0.00 - 0.20 | EXTERNAL | | | Manual | performed at [facility], [address] | K/uL | LAB | | | | [address], | | | | | | [place] [address] | | | | + + + + + + | Absolute | 1.02Comment: Testing | 1.00 - 3.90 | EXTERNAL | | | Lymphocytes | performed at [facility], [address] | K/uL | LAB | | | | [address], | | | | | | [place] [address] | | | | + + + + + + | RBC | NORMAL PLT MORPHComment: | | EXTERNAL | | | Morphology | NORMAL RBC MORPHTesting | | LAB | | | | performed at [facility], [address] | | | | | [address], | | | | | | [place] [address] | | | | + + + [...] EXTERNAL | | | | performed at [facility] | | LAB | | | | [address];[place] | | | | | | [address] | | | | + + + [...] EXTERNAL | | | | performed at [facility] | | LAB | | | | [address];[place], [place] | | | | | | [address] | | | | + + + [...] EXTERNAL | | | | performed at [facility] | | LAB | | | | [address];[place], [place] | | | | | | [address] | | | | + + + [...] EXTERNAL | | | | performed at [facility];[address] | mmol/L | LAB | | | | [address];[place] | | | | | | [address] | | | | + + + + + + | K | 3.7Comment: Testing | 3.5 - 4.9 | EXTERNAL | | | | performed at [facility] | mmol/L | LAB | | | | [address];[place] | | | | | | [address] | | | | + + + + + + | Cl | 103Comment: Testing | 99 - 109 mmol/L | EXTERNAL | | | | performed at [facility] | | LAB | | | | [address];[place] | | | | | | [address] | | | | + + + + + + | CO2 | 23Comment: Testing | 23 - 32 mmol/L | EXTERNAL | | | | performed at [facility] | | LAB | | | | [address];[place] | | | | | | [address] | | | | + + + + + + | Anion Gap | 15Comment: Testing | 5 - 20 mmol/L | EXTERNAL | | | | performed at [facility] | | LAB | | | | [address];[place] | | | | | | [address] | | | | + + + + + + | Glucose, | 150 (H)Comment: Testing | 65 - 99 mg/dL | EXTERNAL | | | Fasting | performed at [facility] | | LAB | | | | [address];[place] | | | | | | [address] | | | | + + + + + + | BUN | 9Comment: Testing | 8 - 25 mg/dL | EXTERNAL | | | | performed at [facility] | | LAB | | | | [address];[place] | | | | | | [address] | | | | + + + + + + | Creatinine | 0.76Comment: Testing | 0.50 - 1.00 | EXTERNAL | | | | performed at [facility] | mg/dL | LAB | | | | [address];[place] | | | | | | [address] | | | | + + + + + + | BUN/Creatin | 12Comment: Testing | | EXTERNAL | | | ine Ratio | performed at [facility] | | LAB | | | | [address];[place] | | | | | | [address] | | | | + + + + + + | Calcium | 8.6Comment: Testing | 8.5 - 10.5 | EXTERNAL | | | | performed at [facility] | mg/dL | LAB | | | | [address];[place] | | | | | | [address] | | | | + + + + + + | Protein, | 7.3Comment: Testing | 6.3 - 8.2 g/dL | EXTERNAL | | | Total | performed at [facility] | | LAB | | | | [address];[place] | | | | | | [address] | | | | + + + + + + | Albumin | 2.6 (L)Comment: Testing | 3.6 - 5.0 g/dL | EXTERNAL | | | | performed at [facility] | | LAB | | | | [address];[place] | | | | | | [address] | | | | + + + + + + | Globulin | 4.7Comment: Testing | 1.3 - 4.9 g/dL | EXTERNAL | | | | performed at [facility] | | LAB | | | | [address];[place] | | | | | | [address] | | | | + + + + + + | A/G Ratio | 0.6 (L)Comment: Testing | 1.0 - 2.4 | EXTERNAL | | | | performed at [facility] | | LAB | | | | [address];[place] | | | | | | [address] | | | | + + + + + + | Bilirubin | 0.9Comment: Testing | 0.1 - 1.5 mg/dL | EXTERNAL | | | Total | performed at [facility] | | LAB | | | | [address];[place] | | | | | | [address] | | | | + + + + + + | ALP, | 246 (H)Comment: Testing | 35 - 115 U/L | EXTERNAL | | | External | performed at [facility] | | LAB | | | | [address];[place] | | | | | | [address] | | | | + + + + + + | AST | 26Comment: Testing | 10 - 45 U/L | EXTERNAL | | | | performed at [facility] | | LAB | | | | [address];[place] | | | | | | [address] | | | | + + + + + + | ALT | 23Comment: Testing | 10 - 65 U/L | EXTERNAL | | | | performed at [facility] | | LAB | | | | [address];[place] | | | | | | [address] | | | | + + + [...] | | | | | | at [facility];[address];[place] [address] | | | | + + + [...] | Testing performed | | | at [facility], [address] [place] [address] | | + + + + +---------+ [...] | | LAB | | | | [address], | | | | | | [place] [address] | | | | + + + + + + | Clarity | CLEARComment: Testing | | EXTERNAL | | | | performed at [facility], [address] | | LAB | | | | [address], | | | | | | [place] [address] | | | | + + + + + + | Specific | 1.007Comment: Testing | 1.002 - 1.030 | EXTERNAL | | | Fifty Six | performed at [facility], [address] | | LAB | | | | [address], | | | | | | [place] [address] | | | | + + + + + + | Leukocyte | SMALL (A)Comment: | | EXTERNAL | | | Esterase, | Testing performed at | | LAB | | | Urine | [facility], [address] | | | | | | [place] | | | | | | [address] | | | | + + + + + + | Nitrite, | NEGATIVEComment: Testing | | EXTERNAL | | | Urine | performed at [facility], [address] | | LAB | | | | [address], | | | | | | [place] [address] | | | | + + + + + + | Urobilinoge | 0.2Comment: Testing | mg/dL | EXTERNAL | | | n, Urine | performed at [facility], [address] | | LAB | | | | [address], | | | | | | [place] [address] | | | | + + + + + + | Protein, | NEGATIVEComment: Testing | mg/dL | EXTERNAL | | | Urine | performed at [facility], [address] | | LAB | | | | [address] [place], | | | | | | [place] [address] | | | | + + + + + + | pH, Urine | 6.5Comment: Testing | 5.0 - 8.0 | EXTERNAL | | | | performed at [facility], [address] | | LAB | | | | [address] [place], | | | | | | [place] [address] | | | | + + + + + + | Blood, | SMALL (A)Comment: | | EXTERNAL | | | Urine | Testing performed at | | LAB | | | | [facility], [address] | | | | | | [place] | | | | | | [address] | | | | + + + + + + | Ketones | TRACE (A)Comment: | mg/dL | EXTERNAL | | | | Testing performed at | | LAB | | | | [facility], [address] | | | | | | [place] | | | | | | [address] | | | | + + + + + + | Bilirubin, | NEGATIVEComment: Testing | | EXTERNAL | | | Urine | performed at [facility], [address] | | LAB | | | | [address] [place], | | | | | | [place] [address] | | | | + + + + + + | Glucose, | NEGATIVEComment: Testing | mg/dL | EXTERNAL | | | Urine | performed at [facility], [address] | | LAB | | | | [address] [place], | | | | | | [place] [address] | | | | + + + [...] | | | | | [place] [address] | | | | + + + + + + | RBC, UA | 1-5Comment: Testing | 0 - 5 /hpf | EXTERNAL | | | | performed at [facility], [address] | | LAB | | | | [address], | | | | | | [place] [address] | | | | + + + + + + | Epithelial | 16-25Comment: Testing | /lpf | EXTERNAL | | | Cells | performed at [facility], [address] | | LAB | | | | [address], | | | | | | [place] [address] | | | | + + + + + + | Bacteria, | NONE SEENComment: | | EXTERNAL | | | UA | CULTURE TO FOLLOWTesting | | LAB | | | | performed at [facility], [address] | | | | | | [address], | | | | | | [place] [address] | | | | + + + + + + | HYALINE | NONE SEENComment: | | EXTERNAL | | | CASTS UA | Testing performed at | | LAB | | | | [facility], [address] | | | | | | [place] | | | | | | [address] | | | | + + + [...] | | | | | performed at [facility] | | | | | | [facility];[place], [place] | | | | | | [address] | | | | + + + [...] image storage only | + + MRSA SOILA (07/19/2014 8:59 PM PDT) + + | Specimen | + + | | + + + + + | Narrative | Performed At | + + + | [facility](NOSE) | EXTERNAL LAB | | Testing performed at [facility];[address] [place] [address];[place] [address] MRSA PCR | | | NEGATIVE Testing performed at | | | [address];[place] [address] | | + + + + +---------+ + + | Performing | Address | City/State/Zipcode | Phone Number | | Organization | | | | + +---------+ + + | EXTERNAL LAB | | | | + +---------+ + + Protime INR (07/19/2014 8:19 PM PDT) + + [...] | | | | | performed at [facility] | | | | | | [address];[place] | | | | | | [address] | | | | + + + [...] K/uL | LAB | | | | [facility];[address];[place] [address] | | | | + + + + + + | RED CELL | 4.56Comment: Testing | 3.70 - 5.10 | EXTERNAL | | | COUNT | performed at [facility] | M/uL | LAB | | | | [address];[place] | | | | | | [address] | | | | + + + + + + | Hgb | 14.5Comment: Testing | 11.3 - 15.5 | EXTERNAL | | | | performed at [facility] | g/dL | LAB | | | | [address];[place] | | | | | | [address] | | | | + + + + + + | Hematocrit, | 43.4Comment: Testing | 34.0 - 46.0 % | EXTERNAL | | | POC | performed at [facility];[address] | | LAB | | | | [address];[place] | | | | | | [address] | | | | + + + + + + | MCV | 95.2Comment: Testing | 80.0 - 100.0 fl | EXTERNAL | | | | performed at [facility] | | LAB | | | | [address];[place] | | | | | | [address] | | | | + + + + + + | MCH | 31.8Comment: Testing | 27.0 - 34.0 pg | EXTERNAL | | | | performed at [facility];[address] | | LAB | | | | [address];[place] | | | | | | [address] | | | | + + + + + + | MCHC | 33.4Comment: Testing | 32.0 - 35.5 | EXTERNAL | | | | performed at [facility] | g/dL | LAB | | | | [address];[place] | | | | | | [address] | | | | + + + + + + | RDW-CV | 53.4 (H)Comment: Testing | 37 - 53 fl | EXTERNAL | | | | performed at [facility] | | LAB | | | | [address];[place] | | | | | | [address] | | | | + + + + + + | Platelet | 335Comment: Testing | 150 - 400 K/uL | EXTERNAL | | | Count | performed at [facility] | | LAB | | | Plasma | [address];[place] | | | | | | [address] | | | | + + + + + + | MPV | 7.8Comment: Testing | fl | EXTERNAL | | | | performed at [facility];[address] | | LAB | | | | [address];[place] | | | | | | [address] | | | | + + + + + + | Differentia | AUTOMATEDComment: | | EXTERNAL | | | l Type | Testing performed at | | LAB | | | | [facility];[address];[place] [address] | | | | + + + + + + | % Segmented | 68.15Comment: Testing | % | EXTERNAL | | | | performed at [facility];[address] | | LAB | | | Neutrophils | [address];[place] | | | | | | [address] | | | | + + + + + + | % | 21.73Comment: Testing | % | EXTERNAL | | | Lymphocytes | performed at [facility];[address] | | LAB | | | | [address];[place] | | | | | | [address] | | | | + + + + + + | % Monocytes | 9.37Comment: Testing | % | EXTERNAL | | | | performed at [facility];[address] | | LAB | | | | [address];[place] | | | | | | [address] | | | | + + + + + + | % | 0.18Comment: Testing | % | EXTERNAL | | | Eosinophils | performed at [facility];[address] | | LAB | | | | [address];[place] | | | | | | [address] | | | | + + + + + + | % Basophils | 0.57Comment: Testing | % | EXTERNAL | | | | performed at [facility];[address] | | LAB | | | | [address];[place] | | | | | | [address] | | | | + + + + + + | Absolute | 13.33 (H)Comment: | 1.90 - 7.40 | EXTERNAL | | | Segmented | Testing performed at | K/uL | LAB | | | Neutrophils | [facility];[address];[place] [address] | | | | + + + + + + | Absolute | 4.25 (H)Comment: Testing | 1.00 - 3.90 | EXTERNAL | | | Lymphocytes | performed at [facility];[address] | K/uL | LAB | | | | [address];[place] | | | | | | [address] | | | | + + + + + + | Absolute | 1.83 (H)Comment: Testing | 0.00 - 0.80 | EXTERNAL | | | Monocytes | performed at [facility];[address] | K/uL | LAB | | | | [address];[place] | | | | | | [address] | | | | + + + + + + | Absolute | 0.04Comment: Testing | 0.00 - 0.50 | EXTERNAL | | | Eosinophils | performed at [facility];[address] | K/uL | LAB | | | | [address];[place] | | | | | | [address] | | | | + + + + + + | Absolute | 0.11 (H)Comment: Testing | 0.00 - 0.10 | EXTERNAL | | | Basophils | performed at [facility];[address] | K/uL | LAB | | | | [address];[place], [place] | | | | | | [address] | | | | + + + [...] EXTERNAL | | | | performed at [facility];[address] | | LAB | | | | [address];[place] | | | | | | [address] | | | | + + + [...] EXTERNAL | | | | performed at [facility];[address] | | LAB | | | | [address];[place] | | | | | | [address] | | | | + + + [...] EXTERNAL | | | | performed at [facility];[address] | mmol/L | LAB | | | | [address];[place], [place] | | | | | | [address] | | | | + + + + + + | K | 3.1 (L)Comment: Testing | 3.5 - 4.9 | EXTERNAL | | | | performed at [facility];[address] | mmol/L | LAB | | | | [address];[place] | | | | | | [address] | | | | + + + + + + | Cl | 101Comment: Testing | 99 - 109 mmol/L | EXTERNAL | | | | performed at [facility];[address] | | LAB | | | | [address];[place] | | | | | | [address] | | | | + + + + + + | CO2 | 26Comment: Testing | 23 - 32 mmol/L | EXTERNAL | | | | performed at [facility];[address] | | LAB | | | | [address];[place] | | | | | | [address] | | | | + + + + + + | Anion Gap | 12Comment: Testing | 5 - 20 mmol/L | EXTERNAL | | | | performed at [facility];[address] | | LAB | | | | [address];[place] | | | | | | [address] | | | | + + + + + + | Glucose, | 109 (H)Comment: Testing | 65 - 99 mg/dL | EXTERNAL | | | Fasting | performed at [facility];[address] | | LAB | | | | [address];[place] | | | | | | [address] | | | | + + + + + + | BUN | 9Comment: Testing | 8 - 25 mg/dL | EXTERNAL | | | | performed at [facility] [place] | | [place] | | | | [address];[place] | | | | | | [address] | | | | + + + + + + | Creatinine | 0.69Comment: Testing | 0.50 - 1.00 | EXTERNAL | | | | performed at [facility] [place] | mg/dL | LAB | | | | [address];[place] | | | | | | [address] | | | | + + + + + + | BUN/Creatin | 12Comment: Testing | | EXTERNAL | | | ine Ratio | performed at [facility] [place] | | LAB | | | | [address];[place] | | | | | | [address] | | | | + + + + + + | Calcium | 8.5Comment: Testing | 8.5 - 10.5 | EXTERNAL | | | | performed at [facility] [place] | mg/dL | LAB | | | | [address];[place] | | | | | | [address] | | | | + + + [...] | | | | | | at [facility] [place] | | | | | | [address];[place] [address] | | | | + + + [...]
--- OUTSIDE RECORDS SUMMARY | ~2019-03-09 | XMS | Encounter Summary ---
Demographics + + + | Address | [address] | | | [place] [address] | + + + | Home Phone | | + + + | Preferred Language | Unknown | + + + | Marital Status | | + + + | Jain Affiliation | Unknown | + + + | Race | Unknown | + + + | Ethnic Group | Unknown | + + + Author + + + | Author | [facility] | | | and [place] | + + + | Organization | [facility] | | | [...] Providers + +------+ + | Care Senior Accounting Associate Name | Role | Phone | + +------+ + PCP | Unavailable | + +------+ + Encounter Details +--------+ + + + + | Date | Type | Department | Care Team | Description | +--------+ + + + + | 10/16/ | Hospital | [facility] | Enrique Bocanegra, | Rectovaginal fistula | | 2016 | Encounter | [facility] | [address] | | | | | [address] | [address] | | | | | [place], [place] | [place] [address] | | | | | [address] | [phone] | | | | | [phone] | | | +--------+ + + + [...] [id number] Date of Service: 10/17/152009 Status: Signed Transition Advisor: Osvaldo Dial RN (Registered Nurse) Patient and [...] interpretation and technical preparation was performed by [facility] | | | [facility], [address], | | | [place] [address] (Commercial Floor Covering Installer: Raphael Yee M.D.; IA#: | | | [id number]). Diagnostician: Honey Mcduffie MD Pathologist | | [...]
--- OUTSIDE RECORDS SUMMARY | ~2019-03-09 | XMS | Encounter Summary ---
Demographics + + + | Address | [address] | | | [place] [address] | + + + | Home Phone [...] Team Providers + +------+ + | Care Bottom Scrubber Name | Role | Phone | + +------+ + PCP | Unavailable | + +------+ + Encounter Details +--------+ + + + + | Date | Type | Department | Care Team | Description | +--------+ + + + + | 04/12/ | Hospital | [facility] | Dionicio, | Acute | | 2015 - | Encounter | [facility] | Bonnieroxane Jones, | gastroenteritis; PAF | | | | INTENSIVE CARE UNIT | MD Jasp[address] | (paroxysmal atrial | | 04/23/ | | [address] | [place], | fibrillation) ([facility]); | | 2014 | | [place], [place] | [place] [address] | Sepsis([phone]) | | | | [address] | [phone] | (HCC); Acute | | | | [phone] | | systolic heart | | | | | | failure (HCC); Acute | | | | | | respiratory failure | | | | | | ([facility]); Aspiration | | | | | | pneumonia ([facility]); | | | | | | COPD (chronic | | | | | | obstructive | | | | | | pulmonary disease) | | | | | | ([facility]); Crohn's | | | | | | disease ([facility]); | | | | | | Embolism and | | | | | | thrombosis of | | | | | | splenic artery | | | | | | (HCC); Microcytic | | | | | | anemia; Narcotic | | | | | | dependence ([facility]) | +--------+ + + + + [...] + documented as of this encounter Progress Trice Bruce - 04/23/2014 5:42 AM PST Progress Notes by Trice Fagan MD at 04/23/14 0542 Author: Trice Fagan MD Service: Construction Specialist Author Type: Construction Specialist Filed: 04/23/14 0907 Date of Service: 04/23/14 0542 Status: Addendum Astro Technician: Trice Fagan MD (Physician) Related Notes: Original Note by Trice Fagan MD (Physician) filed at 04/23/14 0906 [facility] Service: Construction Specialist Progress Note Mackenzie Hartley 58 y.o. Hospital [...] , recurrent UTI, admitted on 04/06/14 in [facility] for nausea, vomiting pre viously ingested food, [...] on 04/12/13 and t ransfered from [facility] to [facility]. SEE assessment and plan for [...] Procedure: ESOPHAGOGASTRODUODENOSCOPY; Surgeon: Bony Petty MD; Location: [facility] BEDSIDE PROCEDURE; Service: Gastroenterology; Laterality: N/A; ALLERGIES [...] 5 % and 0.9 % NaCl Stopped (04/23/14236) fentaNYL in NS 5 mcg/mL 100 mcg/hr [...] 04/23/14 0528 Gross per 24 hour Intake 14912 ml Output 6589 ml Net 7458 ml [...] 139* 57* -- 155 Recent Labs Lab 04/23/1435404/22/14202404/22/14 1443 04/22/14 0400 04/20/14 0311 NA 147* [...] this interval not displayed. Recent Labs Lab 04/23/1435404/22/14202404/22/14 1443 INR 1.3 1.4 1.9 PROBLEM LIST Principal Problem: Intraperitoneal hemorrhage 20 cm x 12 cm x 11 cm 04/22/2014 Active Problems: Acute respiratory failure Crohn's disease Microcytic anemia Aspiration pneumonia COPD (chronic obstructive pulmonary disease) Embolism and thrombosis of splenic artery Acute gastroenteritis Acute systolic heart failure LVEF 30% Narcotic dependence PAF (paroxysmal atrial fibrillation) Stricture esophagus dilated with bougue 20 kittitian 04/21/2014 ASSESSMENT & PLAN Intrabd bleeding Abd/spleen Retroperitoneal bleeding and concern for gastro-splenic collateral vessels bleeding. From ct scan abd pelvis with oral and iv contrast [facility] 08/19/2010 "There is minimal enhancement of the [...] output and hypotension with concerns of ac edith renal failure and wanted additional info. Concern [...] on hemaglobin trending down. Called general surgeon contracts representative. No interventional radiology. Pt taken to OR [...] since that time. Surgical history from [facility] records Small bowel resection with 17 inches removed fro her Crohn's disease- Done by Dr. Madan Gordon APPPascual Hysterectomy Tonsillectomy abd adenoidectomy Left suclavian rolando [...] Reported Idiopathic Cardiomyopathy: LVEF 30% by ECHO ([facility]). Normal EF 60-65% ECHO at [facility] 04/20/14 Impression 1. Overall left [...] at home prior to this admission ad [facility]. This could have been due to her esophageal stricture which was just diagnosed 04/21/14 and treated with dilatation. Last sputum 04/19/14 Description SPUTUM GRAM STAIN GREATER THAN 10 WBCS/LPF GRAM STAIN LESS THAN 10 SEC/LPF GRAM STAIN NO ORGANISMS SEEN CULTURE 1+ CULTURE MATTHIEU ALBICANS A CULTURE Testing performed at [facility], [address] [place] [address] Resulting PCP negative. ID: B/L Aspiration pneumonia [...] On Remecade as out pt. From [facility] positive blood culture from 04/08/14 Staph capitis S to vanco, cipr, gent, levo, tigecycline I clinda. GI/NUTRITION: Crohn's disease. " for at least 40 yrs" As an outpt pt was on prilosec, remicade ( every 6 weeks via rolando cath) and prednisone 5mg po daily ( from 04/06/2014 H and P admission for n/v/d abd pain and dehydration [place], [place]) Unknown last colonoscopy. Unknown last EGD [...] u p with hemotologist. Acquired record from [facility] and discussed 04/21/14 night with obed nd and daughter to acquire records from [facility] where pt has had additional work up in the past . From [facility] records. Confirmed that pt is on outpt [...] 04/23/14219 Date of Service: 04/23/14219 Status: Signed Astro Technician: Yokasta Torrez RN (Registered Nurse) 5 Laps left in patient post op for packing. Trice Moon - 04/23/2014 12:22 AM PSTFormatting of this note might be different from t he original. Significant Event by Trice Fagan MD at 04/23/1421 Author: Trice Fagan MD Service: Construction Specialist Author Type: Construction Specialist Filed: 04/23/1440 Date of Service: 04/23/1421 Status: Addendum Astro Technician: Trice Fagan MD (Physician) Related Notes: Original Note by Trice Fagan MD (Physician) filed at 04/23/14 0039 Received signout of pt. Concern for location [...] ct scan- I reviewed them: pending offi cial read. Ct head appears to have no [...] change in hemaglobin level. I called Dr. Moesr and updated him on pt's condition and that non contrast ct scan done. I discussed my concerns and if he needs a ct scan with nadeem rodriguez but pt is currently on pressors [...] at 04/22/142010 Author: Jannet Shields MD Service: Construction Specialist Author Type: Construction Specialist Filed: 04/22/142118 Date of Service: 04/22/142010 Status: Addendum Astro Technician: Jannet Shields MD (Physician) Related Notes: Original Note by Jannet Shields MD (Physician) filed at 04/22/14 3613 [facility] Service: Construction Specialist Progress Note Mackenzie Hartley 58 y.o. Hospital [...] , recurrent UTI, admitted on 04/06/14 in [facility] for nausea, vomiting pre viously ingested food, [...] given re intubation 04/19/14: Care conference with Construction Specialist/AIMS. Continue with full treatment. Heparin infusi on was started due to the splenic artery thrombosis. 04/20/14: Dr. Petty was consult from GI to scope the patient prior to extubation. 04/22/14: Hemorrhagic shock from intraperitoneal bleed on heparin, [place], Right IJ Cordis, 6 units PRBC, 2 units platlets, 2 units FFP, 2 units cryo, Events Overnight: This AM Hct 30 with Platelet count above 300K. On heparin for hypercoagu able state and celicac and spleenic artery thrombosis. She went into shock and we thought i nitially it was septic shock. However when we placed an a line the blood looked like maddy d it was so dilute so we [...] Procedure: ESOPHAGOGASTRODUODENOSCOPY; Surgeon: Bony Petty MD; Location: [facility] BEDSIDE PROCEDURE; Service: Gastroenterology; Laterality: N/A; ALLERGIES [...] Intravenous Q24H CONTINUOUS INFUSIONS amiodarone infusion Stopped (04/22/141249) dexmedetomidine in NS 0.6 mcg/kg/hr (04/22/141945) dextrose EPINEPHrine in D5W 32 mcg/mL Stopped (04/22/144) fentaNYL in NS 5 mcg/mL 100 mcg/hr (04/22/141946) heparin 50 units/mL in Dextrose 5% Stopped (04/22/141249) norepinephrine in D5W 64 mcg/mL 10 mcg/min (04/22/141922) propofol Stopped (04/22/14409) sodium chloride (IV) 15 mL/hr at 04/22/14 [...] fibrillation) Stricture esophagus dilated with bougue 20 kittitian 04/21/2014 Crohn's disease Microcytic anemia Aspiration pneumonia [...] stable. Idiopathic Cardiomyopathy: LVEF 60% here at [facility] improved over the 30% noted [...] dilated by Dr Petty with a 20 kittitian robert 04/21/14 Intraperitoneal bleed/Hemorrhagic Shock: While on [...] procedures. JANNET SHIELDS MD 04/22/2014 8:11 PM onversjayden n Transaction, Provider Unknown - 04/22/2014 1:15 PM PSTFormatting of this note might be di fferent from the original. Progress Notes by Cher Bailey RN at 04/22/14 1315 Author: Cher Bailey RN Service: (none) Author Type: Registered Nurse Filed: 04/22/14 1451 Date of Service: 04/22/14 1315 Status: Signed Astro Technician: Cher Bailey RN (Registered Nurse) Patient increasingly [...] Author: LEVI Acharya Service: (none) Author Type: Family Law Paralegal Filed: 04/22/14 1124 Date of Service: 04/22/14 1122 Status: Signed Astro Technician: LEVI Acharya (Family Law Paralegal) Attended morning rounds. No family present during rounds. Pt remains vented. Care Conferenc e on Tuesday with pt's daughters and . Goals for care are continued aggressive suppor t. onver roshan Transaction, Provider Unknown - 04/22/2014 8:15 AM PST Therapy Progress Note by Rich Jiménez PT at 04/22/14 0815 Author: Rich Jiménez PT Service: (none) Author Type: Physical Therapist Filed: 04/22/14 1458 Date of Service: 04/22/14814 Status: Signed Astro Technician: Rich Jiménez PT (Physical Therapist) 04/22/14814 PT [...] 04/21/141824 Date of Service: 04/21/141821 Status: Signed Astro Technician: Tayolr Trevino RN (Registered Nurse) Attempted to call pt's Norm [phone] to obtain consent to give blood. No answe r, will attempt to call again soon. TAYLOR TREVINO 04/21/2014 onver roshan Transaction, Provider Unknown - 04/21/2014 4:46 PM PST Progress Notes by Darline Hartley RN at 04/21/14 1646 Author: Darline Hartley RN Service: (none) Author Type: Registered Nurse Filed: 04/21/14 1647 Date of Service: 04/21/14 164 Status: Signed Astro Technician: Darline aHrtley RN (Registered Nurse) Savary dilators used incrementally at 18Fr and 20Fr. DARLINE HARTLEY onver roshan Transaction, Provider Unknown - 04/21/2014 3:30 PM PST Progress Notes by Taylor Trevino RN at 04/21/14 1530 Author: Taylor Trevino RN Service: (none) Author Type: Registered Nurse Filed: 04/21/14 2757 Date of Service: 04/21/14 1530 Status: Signed Astro Technician: Taylor Trevino RN (Registered Nurse) Dr Petty at bedside to asses pt. Orders for NPO received. Stopped tube feeding and flush ed OG with 20 ML h2o. TAYLOR TREVINO 04/21/2014 onver roshan Transaction, Provider Unknown - 04/21/2014 1:40 PM PST Progress Notes by Leah Chris RPH at 04/21/14 1340 Author: Leah Chris RPH Service: (none) Author Type: Pharmacist Filed: 04/21/14 1340 Date of Service: 04/21/14 1340 Status: Signed Astro Technician: Leah Chris RPH (Pharmacist) Day 10 Vanco 1500mg (19.1 mg/kg) IV q 24h Todays Scr= 0.61, WBC= 19.2 with estim CrCl= 105.1 ml/min Vanco Tr at 1242 = 15.6 (15-20 mcg/ml) Level is within range by small margin. Will back-up tomorrow's dose By a few hours to give level a bump. Pharmacist: LEAH CHRIS 04/21/2014 1:40 PM inebe Jaz thompson PT - 04/21/2014 10:15 AM PSTFormatting of this note might be different from t he original. Therapy Progress Note by Jaz Mobley PT at 04/21/14 1015 Author: Jaz Mobley PT Service: (none) Author Type: Physical Therapist Filed: 04/21/14 1017 Date of Service: 04/21/14 1015 Status: Signed Astro Technician: Jaz Mobley PT (Physical Therapist) 04/21/14 1015 PT Last Visit PT Received On 04/21/14 Reason for Treatment Deconditioning Requires PT Follow Up On hold Follow up PT Only? Yes Other Comments Comments Pt still intubated and per RN pt is not getting out of bed and they may be having a care conference today. uncanTrice rossn - 04/21/2014 10:08 AM PSTFormatting of this note might be different from the dellaa l. Progress Notes by Trice Fagan MD at 04/21/14 1008 Author: Trice Fagan MD Service: Construction Specialist Author Type: Construction Specialist Filed: 04/21/14 8072 Date of Service: 04/21/14 100 Status: Signed Astro Technician: Trice Fagan MD (Physician) [facility] Service: Construction Specialist Progress Note Mackenzie Hartley 58 y.o. Hospital [...] , recurrent UTI, admitted on 04/06/14 in [facility] for nausea, vomiting pre viously ingested food, [...] given re intubation 04/19/14: Care conference with Construction Specialist/AIMS. Continue with full treatment. Heparin infusi on [...] fentaNYL in NS 5 mcg/mL 100 mcg/hr (04/20/142258) heparin 50 units/mL in Dextrose 5% 12 Units/kg/hr (04/20/142) norepinephrine in D5W 64 mcg/mL propofol 50 [...] sacrum or heels DATA Recent Labs Lab 04/21/1434804/20/14 0430 04/19/14 0252 WBC 19.2* 21.3* 18.2* HGB 8.2* 8.9* 9.7* HCT 27.1* 29.8* 30.8* PLT 340 373 388 Recent Labs Lab 04/21/1434804/20/14 2353 04/20/14 1810 04/20/1431004/19/14 2106 NA 147* -- -- -- 144* [...] this interval not displayed. Recent Labs Lab 04/21/1434804/20/1404/19/15 0252 INR 1.3 1.7 1.4 IMAGING ECHO [...] stable. Idiopathic Cardiomyopathy: LVEF 30% by ECHO ([facility]). ECHO here at [facility] 04/20/14 Impression 1. Overall left [...] Progress Notes by Taylor Trevino RN at 04/20/14 1700 Author: Taylor Trevino RN Service: (none) Author Type: Registered Nurse Filed: 04/20/14 0279 Date of Service: 04/20/14 170 Status: Signed Astro Technician: Taylor Trevino RN (Registered Nurse) Labs drawn from [facility] per protocol. Flushed with 20ML NS, jhony back and wasted 8ML blo od and then jhony sample. Labs sent to lab per orders. TAYLOR TREVINO 04/20/2014 onver roshan Transaction, Provider Unknown - 04/20/2014 2:54 PM PST Progress Notes by Pia Garcia RD, ALO at 04/20/14 9483 Author: Pia Garcia RD, CD Service: (none) Author Type: Registered Dietitian Filed: 04/20/14 5858 Date of Service: 04/20/14 6764 Status: Signed Astro Technician: Pia Garcia RD, CD (Registered Dietitian) Nutrition [...] Progress Notes by JENARO Perez at 04/20/14 1892 Author: JENARO Perez Service: Construction Specialist Author Type: Construction Specialist Filed: 04/20/14 2866 Date of Service: 04/20/141402 Status: Signed Astro Technician: JENARO Perez (Nurse Practitioner) [facility] Service: Construction Specialist Progress Note Mackenzie Hartley 58 y.o. Hospital Day: LOS: 8 days Post-Op Day: * No surgery found * Consulting Physicians Treatment Team: Consulting Physician: Eric Chvaez MD Consulting Physician: Bony Petty MD Admitting Provider: Bonnie Greenberg MD SUBJECTIVE Patient Summary: Per Dr Greenberg: The patient is a 58 y.o. female with significant m[place] st medical history of splenic artery thrombosis on anticoagulation (warfarin), Crohn's disea se (on every 6 week Remicaide infusion and prednisone at 15 mg daily), chronic pain syndrome , COPD, recurrent UTI, admitted on 04/06/14 in [facility] for nausea, vomiti ng previously ingested food, [...] given re intubation 04/19/14: Care conference with Construction Specialist/AIMS. Continue with full treatment. Heparin infusi on [...] Net 714.5 ml EXAM GEN: Sedated modified Meg scale of 3 patient is able to [...] heels DATA Recent Labs Lab 04/20/14 0430 04/19/14 0252 04/18/14 0430 WBC 21.3* 18.2* 22.9* HGB 8.9* 9.7* 8.8* HCT 29.8* 30.8* 29.5* PLT 373 388 397 Recent Labs Lab 04/20/14 1145 04/20/14 0311 04/19/14 2106 04/19/14 0252 NA -- 144* 150* -- 140 K [...] this interval not displayed. Recent Labs Lab 04/20/14 0311 04/19/14 0252 04/18/14 0430 INR 1.7 1.4 1.4 IMAGING X-ray Abdomen [...] Life issues: Was a DNR while in [facility] but consented to be intubated prior to arian evans. Palliative care consult and family conference revealed [...] stable. Idiopathic Cardiomyopathy: LVEF 30% by ECHO ([facility]). PULM: Pulmonary Edema: Related to cardiomyopathy and [...] 04/20/14899 Date of Service: 04/20/14899 Status: Signed Astro Technician: Leah Chris RPH (Pharmacist) Day 9 Vanco Tx Todays Scr= 0.58, WBC= 21.3 with estim CrCl= 110.5 ml/min Pharmacist: LEAH CHRIS 04/20/2014 8:59 AM onver roshan Transaction, Provider Unknown - 04/19/2014 7:53 PM PST Progress Notes by Mila Pinedo at 04/19/141952 Author: Mila Pinedo Service: (none) Author Type: Filed: 04/19/142001 Date of Service: 04/19/141952 Status: Signed Astro Technician: Mila Pinedo (Oil Heater Operator) AIM care conference with Dr Chavez and Maryjane AIM/CM expanded to include ICU Construction Specialist and pts current RN. Present also were Mackenzie's , Kole, and two of the four children, Silva and Otilia. Construction Specialist gave a thorough explanation of the progression [...] aggressive treatment at this time as Marlo karimi 'is a fighter'. 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 Construction Specialist asked for another care conference on Friday 04/21 to update the family on Mackenzie' s progress. oLyly mills MSW - 04/19/2014 4:14 PM PST Progress Notes by LEVI Cervantes at 04/19/14 1614 Author: LEVI Cervantes Service: (none) Author Type: Family Law Paralegal Filed: 04/19/14 6384 Date of Service: 04/19/14 1614 Status: Signed Astro Technician: LEVI Cervantes (Family Law Paralegal) SOPHIE SAEED, SOPHIE SIMS, Oil Heater Operator, pt's RN Kassandra Garrett and ICU Construction Specialist met with family to ex plore goals of care. ICU Construction Specialist thoroughly explained pt's course of care during [...] this time. Pt's spouse Kole and dtrs Angi and Otilia live in [place], [place]. Family e xpressed strong concerns that [...] several months and had see n an manager market research for the mouth and throat sores to no avail. Pt's spouse Kole and pt's dtr express tremendous frustration over what they perceive has been poor med ical management of pt's illnesses prior to this admission. ICU Construction Specialist recommended a wo rk up of pt's multiple medical co-morbidities and continued aggressive medical treatment at this time. Pt's dtrs and spouse in agreement with this plan. onversion Transact ion, Provider Unknown - 04/19/2014 1:28 PM PSTFormatting of this note might be different fr om the original. Progress Notes by Paula Barnes RPH at 04/19/141327 Author: Paula Barnes RPH Service: (none) Author Type: Pharmacist Filed: 04/19/141327 Date of Service: 04/19/141327 Status: Signed Astro Technician: Paula Barnes RPH (Pharmacist) Clinical Pharmacy Note: [...] prior to 3rd 1500mg dose Paula Barnes JEREMY onver roshan Transaction, Provider Unknown - 04/19/2014 11:52 AM PST Nurse Progress Note by Rhianna Blackwood RN at 04/19/14 1150 Author: Rhianna Blackwood RN Service: (none) Author Type: Registered Nurse Filed: 04/19/14 115 Date of Service: 04/19/14 115 Status: Signed Astro Technician: Rhianna Blackwood RN (Registered Nurse) Wound care came to see this patient today because of Marck scores that put the patient at moderate risk of skin breakdown. Patient's Marck score today is 13. Patient's skin assessm ent found blanchable redness in the erji area. Continue to use barrier cream, float [...] Progress Notes by JENARO Perez at 04/19/14 0053 Author: JENARO Perez Service: Construction Specialist Author Type: Construction Specialist Filed: 04/20/14 0749 Date of Service: 04/19/14 7723 Status: Signed Astro Technician: JENARO Perez (Nurse Practitioner) [facility] Service: Construction Specialist Progress Note Mackenzie Odilia 58 y.o. Hospital Day: LOS: 7 days Post-Op Day: * No surgery found * Consulting Physicians Treatment Team: Consulting Physician: Eric Chavez MD Admitting Provider: Bonnie Greenberg MD SUBJECTIVE Patient Summary: Per Dr Greenberg: The patient is a 58 y.o. female with significant [facility] medical history of splenic artery thrombosis on anticoagulation (warfarin), Crohn's disea se (on every 6 week Remicaide infusion and prednisone at 15 mg daily), chronic pain syndrome , COPD, recurrent UTI, admitted on 04/06/14 in [facility] for nausea, vomiti ng previously ingested food, [...] given re intubation 04/19/14: Care conference with Construction Specialist/AIMS. Continue with full treatment. Events Overnight: No [...] D5W 64 mcg/mL propofol 50 mcg/kg/min (04/19/14 09) sodium chloride (IV) 30 mL/hr at 04/15/14 [...] 397 385 Recent Labs Lab 04/19/14 0842 04/19/1425104/18/14 1314 04/18/1442904/17/1431804/12/14 1731 NA -- 140 -- 147* -- [...] this interval not displayed. Recent Labs Lab 04/19/1425104/18/1442904/17/14318 INR 1.4 1.4 1.6 IMAGING X-ray Abdomen [...] Life issues: Was a DNR while in [facility] but consented to be intubated prior to [...] stable. Idiopathic Cardiomyopathy: LVEF 30% by ECHO ([facility]). PULM: Pulmonary Edema: Related to cardiomyopathy and [...] Author: LEVI Acharya Service: (none) Author Type: Family Law Paralegal Filed: 04/19/14 113 Date of Service: 04/19/14 113 Status: Signed Astro Technician: LEVI Acharya (Family Law Paralegal) Care conference arranged for today at 2pm with Dr. Chavez. Await decision of family regardin g continued aggressive care vs. Comfort care. onver roshan Transaction, Provider Unknown - 04/19/2014 9:10 AM PST Therapy Progress Note by Rich Jiménez PT at 04/19/14 0910 Author: Rich Jiménez PT Service: (none) Author Type: Physical Therapist Filed: 04/19/14 1153 Date of Service: 04/19/14 0910 Status: Signed Astro Technician: Rich Jiménez PT (Physical Therapist) 04/19/14 0910 PT Last Visit PT Received On 04/19/14 Requires PT Follow Up On hold yly Krishnamurthy MSW - 04/18/2014 5:22 PM PST Progress Notes by LEVI Cervantes at 04/18/14 172 Author: LEVI Cervantes Service: (none) Author Type: Family Law Paralegal Filed: 04/18/141723 Date of Service: 04/18/141721 Status: Signed Astro Technician: LEVI Cervantes (Family Law Paralegal) SOPHIE SIMS was summoned to pt's room by pt's RN. Two adult dtr's were bedside. ANIMATOR asked it they would be able to meet with SOPHIE service , temporary help agency referral clerk/HORSE TRAINER, ICU ANIMATOR and fire equipment operator vero hoover to discuss goals of care. [...] Date of Service: 04/18/14 1419 Status: Signed Astro Technician: Rich Jiménez PT (Physical Therapist) 04/18/14 1419 PT Last Visit PT Received On 04/18/14 Requires PT Follow Up On hold onver roshan Transaction, Provider Unknown - 04/18/2014 12:07 PM PST Case Management by LEVI Acharya at 04/18/14 1207 Author: LEVI Acharya Service: (none) Author Type: Family Law Paralegal Filed: 04/18/14 1210 Date of Service: 04/18/14 1207 Status: Signed Astro Technician: LEVI Acharya (Family Law Paralegal) called pt's spouse Kole. Spoke with him and informed that both Dr. Chavez and Intensroxana gandhi want to meet with him to [...] one of them to accompany him to [place] and is waiting to hear from the other daughter whether she will be able to also be pr esent. said he would call me back to arrange a time for conferences. Shared this in fo with LEVI Cervantes for AIM program. Lyly Hein MSW - 04/18/2014 10:31 AM PST Progress Notes by LEVI Cervantes at 04/18/14 1031 Author: LEVI Cervantes Service: (none) Author Type: Family Law Paralegal Filed: 04/18/14 1033 Date of Service: 04/18/14 103 Status: Signed Astro Technician: LEVI Cervantes (Family Law Paralegal) AIM ANIMATOR called pt's spouse Kole using phone contact number on [facility] Best RN CM progress not e. No answer, automated vm listing number only. No hippa info left on vm. Will continue t o attempt to contact pt's spouse to set up a care conference with him and Mackenzie's adult chil alexandrun to discuss goals of care. onversion Transact ion, Provider Unknown - 04/18/2014 9:31 AM PSTFormatting of this note might be different fr om the original. Progress Notes by Paula Barnes RPH at 04/18/14930 Author: Paula Barnes RPH Service: (none) Author Type: Pharmacist Filed: 04/18/14930 Date of Service: 04/18/14930 Status: Signed Astro Technician: Paula Barnes RPH (Pharmacist) Clinical Pharmacy Note: Vancomycin Day 7 No trough ordered today Dose @ 1400 Vancomycin 1250mg Daily IVPB Improvement in Scr. If this is sustained, will check level tomorrow to see we are not unde rdosing. Paula Barnes RP 04-18-2014 Mai Madrigal ARNP - 04/18/2014 6:42 AM PST Progress Notes by JENARO Mcdermott at 04/18/14 0642 Author: JENARO Mcdermott Service: Construction Specialist Author Type: Nurse Practitioner Filed: 04/18/14 1137 Date of Service: 04/18/14 0642 Status: Signed Astro Technician: JENARO Mcdermott (Nurse Practitioner) [facility] Service: Construction Specialist Progress Note [facility]enzie [facility] 58 y.o. Hospital [...] COPD, recurrent UTI, admitted on 04/06/14 in [facility] for nausea, vomiti ng previously ingested food, [...] sacrum or heels DATA Recent Labs Lab 04/18/1442904/17/1431804/16/14314 WBC 22.9* 19.2* 20.0* HGB 8.8* 9.2* 10.5* HCT 29.5* 30.7* 36.0 PLT 397 385 378 Recent Labs Lab 04/18/14 0430 04/17/14 2133 04/17/14 1330 04/17/1431804/16/1431404/12/14 1731 NA 147* -- -- 151* 146* [...] this interval not displayed. Recent Labs Lab 04/18/1442904/17/1431804/16/14314 INR 1.4 1.6 1.5 IMAGING X-ray Abdomen [...] Life issues: Was a DNR while in [place] but convinced to be intubated prior to [...] stable. Idiopathic Cardiomyopathy: LVEF 30% by ECHO ([place]). Lasix 20mg today (04/18) PULM: Pulmonary Edema: [...] the original. Progress Notes by Paula Barnes RP at 04/17/141411 Author: Paula Barnes RPH Service: (none) Author Type: Pharmacist Filed: 04/17/141411 Date of Service: 04/17/141411 Status: Signed Astro Technician: Paula Barnes RPH (Pharmacist) Clinical Pharmacy Note: Vancomycin Day 6 Vancomycin trough today at 1300 was 17.5 Scr 0.96 mg/dL CrCl 66.8 ml/min WBC 19.2 Continue Vancomycin 1250 mg IV q24h Dose at 1400 Paula Barnes RP 04-17-2014 onver roshan Transaction, Provider Unknown - 04/17/2014 11:07 AM PST Case Management by LEVI Acharya at 04/17/14 1107 Author: LEVI Acharya Service: (none) Author Type: Family Law Paralegal Filed: 04/17/148 Date of Service: 04/17/141106 Status: Signed Astro Technician: LEVI Acharya (Family Law Paralegal) Pt re-intubated yesterday. Dr. Chavez to consult today to discuss goals of care. Once Dr. Tian cunningham consults, ICU staff with conference with family to discuss plan of care and give options. onver roshan Transaction, Provider Unknown - 04/17/2014 9:40 AM PST Therapy Progress Note by Jessica Huerta PT at 04/17/14939 Author: Jessica Huerta PT Service: (none) Author Type: Physical Therapist Filed: 04/17/1445 Date of Service: 04/17/14939 Status: Signed Astro Technician: Jessica Huerta PT (Physical Therapist) 04/17/14939 PT Last Visit PT Received On 04/17/14 Requires PT Follow Up On hold (see comments) Other Comments Comments Pt remains intubated. Awaiting new orders when/if appropriate. Mai Madrigal ARNP - 04/17/2014 8:58 AM PST Progress Notes by JENARO Mcdermott at 04/17/14 0858 Author: JENARO Mcdermott Service: Construction Specialist Author Type: Nurse Practitioner Filed: 04/17/14 1237 Date of Service: 04/17/1458 Status: Addendum Astro Technician: JENARO Mcdermott (Nurse Practitioner) Related Notes: Original Note by JENARO Mcdermott (Nurse Practitioner) filed at 10/23 1111 [facility] Service: Construction Specialist Progress Note Mackenzie Hartley 58 y.o. Hospital Day: LOS: 5 days Post-Op Day: * No surgery found * Consulting Physicians Treatment Team: Consulting Physician: Eric Chavez MD Admitting Provider: Bonnie Greenberg MD SUBJECTIVE Patient Summary: Per Dr Greenberg: The patient is a 58 y.o. 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 Jerald bob with family 04/16 to discuss prognosis [...] Intake/Output Summary (Last 24 hours) at 04/17/14 0867 Last data filed at 04/17/14 0530 Gross [...] 378 382 Recent Labs Lab 04/17/1431804/16/1431404/15/14 2341 04/15/1442104/12/14 1731 NA 151* 146* -- -- 148* [...] this interval not displayed. Recent Labs Lab 01/07/15 0319 01/06/15 0315 01/05/15 0422 INR 1.6 1.5 1.3 IMAGING X-ray [...] Life issues: Was a DNR while in [place] but convinced to be intubated prior to tr cristina, will consult palliative care service and engage in conversation about this i ssue CV: Splenic artery thrombosis. Will use prophylactic dose Lovenox, & consider warfarin PAF: Paroxysmal Atrial Fib treated with amiodarone now staying in SR. Idiopathic Cardiomyopathy: LVEF 30% by ECHO from recent ECHO in [place] PULM: Pulmonary Edema: Related to cardiomyopathy and decreased ejection fraction, diuresing. Dante soliz followed by [facility] today Aspiration Pneumonia: Upper [...] SS a nd and Palliative care service. Discussed and [...] Notes by Nadir Yee RPH at 04/16/14 9572 Author: Nadir Yee RPH Service: Pharmacy Author Type: Pharmacist Filed: 04/16/14 8705 Date of Service: 04/16/14 1541 Status: Signed Astro Technician: Nadir Yee RPH (Pharmacist) Vancomycin day 5, trough at 1300 today was 19.3 (goal 15-20). Will continue at same dosing and recheck a trough level on 04/17 at 1300. onver roshan Transaction, Provider Unknown - 04/16/2014 1:25 PM PST Progress Notes by Jacoby Muñoz RD at 04/16/14 1327 Author: Jacoby Muñoz RD Service: (none) Author Type: Registered Dietitian Filed: 04/16/14 2586 Date of Service: 04/16/14 1325 Status: Signed Astro Technician: Jacoby Muñoz RD (Registered Dietitian) Nutrition Follow-Up [...] PM PST Therapy Progress Note by Rich Jiménez, PT at 04/16/14 1222 Author: Rich Jiménez PT Service: (none) Author Type: Physical Therapist Filed: 04/16/14 1921 Date of Service: 04/16/14 1222 Status: Signed Astro Technician: Rich Jiménez PT (Physical Therapist) 04/16/14 1222 [...] Date of Service: 04/16/14 1151 Status: Signed Astro Technician: Nadir Yee RPH (Pharmacist) Vancomycin day 5, est crcl 74.5ml/min, awaiting trough level at 1300 today. onver roshan Transaction, Provider Unknown - 04/16/2014 11:37 AM PST Case Management by Alessia Smith RN at 04/16/14 1137 Author: Alessia Smith RN Service: (none) Author Type: Registered Nurse Filed: 04/16/14 1618 Date of Service: 04/16/14 1137 Status: Addendum Astro Technician: Alessia Smith RN (Registered Nurse) Related Notes: Original Note by Alessia Smith RN (Registered Nurse) filed at 04/16/14 4729 Tried to call but number on facesheet is non-functioning. Called [facility] for t elephone number (they have same number). They will also fax a page from pt.s last admission to them that states pt.iIs full code. Will continue to try and connect with per Dr. Hsu request. Kole's phone as listed in the room is [phone]. Spoke with him, he didn't have plans to visit today, he is unemployed and funds are tight. Will let Dr. Segundo know and pos sible phone contact to happen this afternoon. 1300 Kole's number and info given to Dr. Segundo. . Also showed Dr. Segundo fax from [facility], d/c summary from 04/12/14, documenting change from DNR/DNI to full code. Placed i n chart. 1500 Care conference with Kole, Dr Gareth willard, [place] RN, student and myself. initially displays sutle anger over medicine no t being able to determine what is causing infection. After Dr Segundo reviewed pt. 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 Kole to consult 4 adult children. Will contin ue aggressive care for another day or two per Dr Segundo. onver roshan Transaction, Provider Unknown - 04/16/2014 10:48 AM PST Nurse Progress Note by Becka Lama RN at 04/16/14 1048 Author: Becka Lama RN Service: (none) Author Type: Registered Nurse Filed: 04/16/14 1049 Date of Service: 04/16/14 1048 Status: Signed Astro Technician: Becka Lama RN (Registered Nurse) Attempted to visit pt for Coumadin Education. Pt intubated in ICU. Coumadin education pina klet left on chart to review with pt as appropriate. Jannet Roach MD - 04/16/2014 5:31 AM PSTFormatting of this note might be different from the briana ginal. Progress Notes by Jannet Shields MD at 04/16/14530 Author: Jannet Shields MD Service: Construction Specialist Author Type: Construction Specialist Filed: 04/16/1449 Date of Service: 04/16/14530 Status: Signed Astro Technician: Jannet Shields MD (Physician) [facility] Service: Construction Specialist Progress Note Mackenzie Hartley 58 y.o. Hospital [...] COPD, recurrent UTI, admitted on 04/06/14 in [facility] for nausea, vomiti ng previously ingested food, [...] Q12H GISSELL vancomycin 17 mg/kg Intravenous Q24H CONTINUOUS INFUSIONS [...] % Intake/Output Summary (Last 24 hours) at 04/16/14530 Last data filed at 04/16/14 0422 Gross [...] this interval not displayed. Recent Labs Lab 04/16/14 0315 04/15/14 0422 04/14/14 0422 INR 1.5 1.3 1.4 IMAGING PROBLEM LIST Principal Problem: Acute respiratory failure Active Problems: Acute systolic heart failure LVEF 30% Narcotic dependence PAF (paroxysmal atrial fibrillation) Crohn's disease Microcytic anemia Aspiration pneumonia COPD (chronic obstructive pulmonary disease) Embolism and thrombosis of splenic artery Acute gastroenteritis ASSESSMENT & PLAN NEURO: Metabolic Encephalopathy: Multifactorial End of Life issues: Was a DNR while in [place] but convinced to be intubated prior to tr cristina, will consult palliative care service and engage in conversation about this i ssue CV: Splenic artery thrombosis. Will use prophylactic dose Lovenox, & consider warfarin PAF: Paroxysmal Atrial Fib treated with amiodarone now staying in [place]. Idiopathic Cardiomyopathy: LVEF 30% by ECHO from recent ECHO in [place] PULM: Pulmonary Edema: Related to cardiomyopathy and [...] 04/15/141801 Date of Service: 04/15/141801 Status: Signed Astro Technician: Hipolito Isaac () Pt sleeping. Will continue to provide care as needed/requested. Chaplain Chandler onver roshan Transaction, Provider Unknown - 04/15/2014 3:45 PM PST Therapy Progress Note by Rich Jiménez PT at 04/15/14 1545 Author: Rich Jiménez PT Service: (none) Author Type: Physical Therapist Filed: 04/15/14 1743 Date of Service: 04/15/141544 Status: Signed Astro Technician: Rich Jiménez PT (Physical Therapist) 04/15/14 1545 PT Last Visit PT Received On 04/15/14 [...] to transfer from bed to chair. Pt. genaroo's very minimal foot clearance, but was able [...] Author: LEVI Acharya Service: (none) Author Type: Family Law Paralegal Filed: 04/15/14 1150 Date of Service: 04/15/14 1146 Status: Addendum Astro Technician: LEVI Acharya (Family Law Paralegal) Related Notes: Original Note by LEVI Acharya (Family Law Paralegal) filed at 04/15/14 1148 Attended morning rounds. Pt is now on bi-pap. called and received update from RN. Informed that he would not be visiting pt today. He has not visited pt since her admit. I have placed pt on list at [facility] as a back up plan as she will likely need SNF for reha b. PT notes indicate this as well. [facility] - [phone] onver roshan Transaction, Provider Unknown - 04/15/2014 8:12 AM PST Progress Notes by Nadir Yee RPH at 04/15/14811 Author: Nadir Yee RPH Service: Pharmacy Author Type: Pharmacist Filed: 04/15/14811 Date of Service: 04/15/14811 Status: Signed Astro Technician: Nadir Yee RPH (Pharmacist) Vancomycin day 4, [...] Progress Notes by Jannet Shields MD at 04/15/14644 Author: Jannet Shields MD Service: Construction Specialist Author Type: Construction Specialist Filed: 04/15/14 0702 Date of Service: 04/15/14644 Status: Signed Astro Technician: Jannet Shields MD (Physician) [facility] Service: Construction Specialist Progress Note Mackenzie Hartley 58 y.o. Hospital [...] COPD, recurrent UTI, admitted on 04/06/14 in [facility] for nausea, vomiting previously ing ested food, [...] sacrum or heels DATA Recent Labs Lab 04/15/14 0422 04/14/14 0422 04/13/14 0640 WBC 22.8* 20.1* 21.0* HGB 10.6* 10.8* 10.0* HCT 36.1 36.2 32.7* PLT 382 325 281 Recent Labs Lab 04/15/1442104/14/14 1805 04/14/1442104/13/14 04404/12/14 1731 NA 148* -- 147* -- 141 [...] 04/14/141850 Date of Service: 04/14/141850 Status: Signed Astro Technician: Alireza Vides RPH (Pharmacist) vanco level came back high at 33.0. Will hold current dose and redraw a level tomorrow morn ing with am labs. Goal trough 15-20. onver roshan Transaction, Provider Unknown - 04/14/2014 1:36 PM PST Therapy Progress Note by Juma Bazzi PT at 04/14/14 0150 Author: Juma Bazzi PT Service: (none) Author Type: Physical Therapist Filed: 04/14/14 0595 Date of Service: 04/14/141335 Status: Signed Astro Technician: Juma Bazzi PT (Physical Therapist) 04/14/14 1336 PT Last Visit PT Received On 04/14/14 Reason for Treatment Deconditioning;Other (comment) (Acute Resp Failure; co-morbidities) Requires PT Follow Up Awaiting tx order Follow up PT Only? Yes (Further mobility assessment) PT Eval/Reassessment Date 04/14/14 Assistance Required 1 person;2 person Pedodontist Needed No Requires PT Follow Up Awaiting [...] pt's mentation progresses. Prior Function Level of [place] Independent with ADLs;Independent with functional mobility;Independe nt [...] Date 04/14/14 Assistance Required 1 person;2 person Pedodontist Needed No Precautions Other Precautions Fall risk; [...] Type: Filed: 04/14/14 1211 Date of Service: 04/14/14 1210 Status: Signed Astro Technician: Deborah Torres () This a new pt. Attempted visit, but pt is sedated and on bi-pap. No familly present at this time. Chaplain Deborah Torres onver roshan Transaction, Provider Unknown - 04/14/2014 9:42 AM PST Case Management by LEVI Acharya at 04/14/14941 Author: LEVI Acharya Service: (none) Author Type: Family Law Paralegal Filed: 04/14/14942 Date of Service: 04/14/14941 Status: Signed Astro Technician: LEVI Acharya (Family Law Paralegal) 04/14/14938 Discharge Planning Evaluation Admitting Diagnosis acute resp [...] insurance:Medicare Coverage concerns: none reported Medication coverage/concerns: [employer] [facility] Delivery: Community resources utilized / needed: Assistance in transportation: can transport Identification of any specific education / training: Barriers to Discharge / Alternative housing needed: Anticipated DCP: Home with assist from . May need HHPT via [facility]. May n eed IPR?? DEMARCO MONTEZ onver roshan Kapooraction, Provider Unknown - 04/14/2014 9:29 AM PST Case Management by LEVI Acharya at 04/14/14928 Author: LEVI Acharya Service: (none) Author Type: Family Law Paralegal Filed: 04/14/14943 Date of Service: 04/14/14928 Status: Signed Astro Technician: LEVI Acharya (Family Law Paralegal) Pt is sleeping with oxymask on. She was extubated early this morning. is not at e bedside. I called to obtain assessment. Zeferino Sheets MD - 04/14/2014 5:29 AM PST Progress Notes by Zeferino Aly MD at 04/14/14528 Author: Zeferino Aly MD Service: Construction Specialist Author Type: Construction Specialist Filed: 04/14/1438 Date of Service: 04/14/14528 Status: Signed Astro Technician: Zeferino Aly MD (Physician) [facility] Service: Construction Specialist Progress Note Mackenzie [facility]ley 58 y.o. Hospital [...] COPD, recurrent UTI, admitted on 04/06/14 in [facility] for nausea, vomiting previously ing ested food, [...] PLT 325 281 283 Recent Labs Lab 04/14/14 0422 04/14/14 0046 04/13/14 1354 04/13/14 0441 04/12/14 1731 [...] and tracheal CS pending. Will send PCP eugenio ear considering that she has been on [...] Notes by Bonnie Greenberg MD at 04/13/14 9173 Author: Bonnie Greenberg MD Service: Construction Specialist Author Type: Physician Filed: 04/13/14 2465 Date of Service: 04/13/14 1951 Status: Signed Astro Technician: Bonnie Greenberg MD (Physician) [facility] Service: Construction Specialist Progress Note Mackenzie Hartley 58 y.o. Hospital [...] COPD, recurrent UTI, admitted on 04/06/14 in [facility] for nausea, vomiting previously ing ested food, [...] Date of Service: 04/13/14 1015 Status: Signed Astro Technician: Osvaldo Allen RRT (Registered Respiratory Therapist) Tried to wean to PS/CPAP but she is not breathing regularly enough. Placed on PRVC with low RR & automode for now. onver roshan Transaction, Provider Unknown - 04/13/2014 9:57 AM PST Case Management by LEVI Acharya at 04/13/14 0989 Author: LEVI Acharya Service: (none) Author Type: Family Law Paralegal Filed: 04/13/14 1045 Date of Service: 04/13/14 0957 Status: Addendum Astro Technician: LEVI Acharya (Family Law Paralegal) Related Notes: Original Note by LEVI Acharya (Family Law Paralegal) filed at 04/13/14 1044 Pt was transferred from [facility]. She is vented. has not called or v isited. I attempted to reach him by home phone ([phone]) however he did not answer. I [facility] stafff has left messages as well. I called the [place] Police and requested a drive-by to see if can be reached. [employer] will call me back after they have tried to make contact with . Addendum: Received t/c from pt's , Kole. He states that the police came to his ho me to request that he call us. He stated that we had been leaving messages on patient's cell phone. His cell number is [phone]. I asked him if he would be [...] prefe r that. He requested that the Construction Specialist call him. Provided Dr. Greenberg with 's [...] Service: (none) Author Type: Registered Nurse Filed: 04/13/14915 Date of Service: 04/13/14913 Status: Signed Astro Technician: Jaquelin Cat RN (Registered Nurse) Received order for PICC line placement. Blood cultures pending at this time. 48 hour will b e 04/14/2014 @ 1810. If blood cultures remain negative at that time, will plan to place line . Per md notes previous blood cultures were positive on 04/10. Thank you. ongenaro roshan Transaction, Provider Unknown - 04/12/2014 8:34 PM PST Progress Notes by Britni Shaffer RPH at 04/12/142033 Author: Britni Shaffer RPH Service: (none) Author Type: Pharmacist Filed: 04/12/142033 Date of Service: 04/12/142033 Status: Signed Astro Technician: Britni Shaffer RPH (Pharmacist) Renal Dosing Monitoring: [...] 04/12/142032 Date of Service: 04/12/142032 Status: Signed Astro Technician: Britni Shaffer RPH (Pharmacist) Clinical Pharmacy Note: Initiation of Vancomycin Pharmacy Dosing Mackenzie Hartley 58 y.o. female 1.753 m (5' 9") 78.4 kg (172 lb 13.5 oz) Body mass index is 25.51 kg/(m^2). CREATININE Date Value Range Status 04/12/2014 0.96 0.50 - 1.00 mg/dL Final Testing performed at [facility];[address] [place] [id number] Estimated CrCl : CREATININE: 0.96 (04/12/14 1731) Estimated creatinine clearance - 66.8 mL/min Indications: HAP Dose per Protocol: Loading Dose: Vancomycin 1250 mg (16 mg/kg TBW) IV Q12H Vancomycin Trough Due: 04/14 @ 1700 Goal Trough for Vancomycin: 15-20 mcg/mL Pharmacist: Britni Shaffer 04/12/2014 8:32 PM docume nted in this encounter Plan [...] | + +--------+ + + + | RANJAN GARCIA, | Routin | 04/23/2014 | | Results [...] | EXTERNAL LAB: RAPHAEL | Routin | 04/22/2014 | | Results [...] | EXTERNAL LAB: RAPHAEL | Routin | 04/22/2014 | | Results for this | | | e | 2:43 PM | | procedure are in the | | | | PST | | results section. | + +--------+ + + + | ELLIOT SOCO GROSS8, | Routin | 04/22/2014 | | Results [...] | + +--------+ + + + | MAUIME INR | Routin | 04/22/2014 | | [...] + | PROTIME INR | Routin | 04/20/2014 | | [...] + | VANCOMYCIN, TROUGH | Routin | 04/16/2014 | | [...] + | VANCOMYCIN, TROUGH | Routin | 04/14/2014 | | [...] a dusky-brown | | | friable tissue. Printing Roller Polisher sections are submitted in cassettes | | | (A1-A3). FM MICROSCOPIC EXAMINATION: Histologic sections of all | | | submitted blocks are examined by light microscopy. These findings, | | | together with the gross examination, support the pathologic diagnosis. | | | PERFORMING LABORATORY: Professional interpretation and technical | | | preparation was performed by [facility], [facility] | | | [address] [address] (Explosion Welder: | | | Raphael Yee M.D.; BILL#: [id number]). Diagnostician: Salty Bolton | | | King [...] | | | Fingerstick | performed at [facility];[address] | | LAB | | | | [address];[place], [place] | | | | | | [address] | | | | + + + [...] EXTERNAL | | | | performed at [facility];[address] | | LAB | | | | [address];[place] | | | | | | [address] | | | | + + + + + + | RED CELL | 3.62 (L)Comment: Testing | 3.70 - 5.10 | EXTERNAL | | | COUNT | performed at [facility];[address] | M/uL | LAB | | | | [address];[place] | | | | | | [address] | | | | + + + + + + | Hgb | 10.5 (L)Comment: Testing | 11.3 - 15.5 | EXTERNAL | | | | performed at [facility];[address] | g/dL | LAB | | | | [address];[place] | | | | | | [address] | | | | + + + + + + | Hematocrit, | 31.3 (L)Comment: Testing | 34.0 - 46.0 % | EXTERNAL | | | POC | performed at [facility];[address] | | LAB | | | | [address];[place] | | | | | | [address] | | | | + + + + + + | MCV | 86.5Comment: Testing | 80.0 - 100.0 fl | EXTERNAL | | | | performed at [facility];[address] | | LAB | | | | [address];[place] | | | | | | [address] | | | | + + + + + + | MCH | 29.1Comment: Testing | 27.0 - 34.0 pg | EXTERNAL | | | | performed at [facility];[address] | | LAB | | | | [address];[place] | | | | | | [address] | | | | + + + + + + | MCHC | 33.6Comment: Testing | 32.0 - 35.5 | EXTERNAL | | | | performed at [facility];[address] | g/dL | LAB | | | | [address];[place] | | | | | | [address] | | | | + + + + + + | RDW-CV | 46.8Comment: Testing | 37 - 53 fl | EXTERNAL | | | | performed at [facility];[address] | | LAB | | | | [address];[place] | | | | | | [address] | | | | + + + + + + | Platelet | 185Comment: Testing | 150 - 400 K/uL | EXTERNAL | | | Count | performed at [facility];[address] | | LAB | | | Plasma | [address];[place] | | | | | | [address] | | | | + + + + + + | MPV | 7.2Comment: Testing | fl | EXTERNAL | | | | performed at [facility];[address] | | LAB | | | | [address];[place] | | | | | | [address] | | | | + + + + + + | Differentia | MANUALComment: Testing | | EXTERNAL | | | l Type | performed at [facility];[address] | | LAB | | | | [address];[place] | | | | | | [address] | | | | + + + + + + | Nucleated | 2 (H)Comment: Testing | /100WBC | EXTERNAL | | | Red Blood | performed at [facility];[address] | | LAB | | | Cells | [address];[place] | | | | | | [address] | | | | + + + + + + | Segmented | 71Comment: Testing | % | EXTERNAL | | | Neutrophils | performed at [facility];[address] | | LAB | | | Manual | [address];[place] | | | | | | [address] | | | | + + + + + + | % Bands | 13Comment: Testing | % | EXTERNAL | | | | performed at [facility];[address] | | LAB | | | | [address];[place] | | | | | | [address] | | | | + + + + + + | % | 1Comment: Testing | % | EXTERNAL | | | Metamyelocy | performed at [facility];[address] | | LAB | | | petros | [address];[place] | | | | | | [address] | | | | + + + + + + | Lymphocytes | 12Comment: Testing | % | EXTERNAL | | | Manual | performed at [facility];[address] | | LAB | | | | [address];[place] | | | | | | [address] | | | | + + + + + + | Monocytes | 3Comment: Testing | % | EXTERNAL | | | Manual | performed at [facility];[address] | | LAB | | | | [address];[place] | | | | | | [address] | | | | + + + + + + | Absolute | 8.3 (H)Comment: Testing | 1.9 - 7.4 K/uL | EXTERNAL | | | Neutrophils | performed at [facility];[address] | | LAB | | | | [address];[place] | | | | | | [address] | | | | + + + + + + | Bands | 1.5 (H)Comment: Testing | 0 - 0.2 K/uL | EXTERNAL | | | Manual | performed at [facility];[address] | | LAB | | | | [address];[place] | | | | | | [address] | | | | + + + + + + | Absolute | 0.1 (H)Comment: Testing | K/uL | EXTERNAL | | | Metamyelocy | performed at [facility];[address] | | LAB | | | petros | [address];[place] | | | | | | [address] | | | | + + + + + + | Absolute | 1.4Comment: Testing | 1.0 - 3.9 K/uL | EXTERNAL | | | Lymphocytes | performed at [facility];[address] | | LAB | | | | [address];[place] | | | | | | [address] | | | | + + + + + + | Absolute | 0.4Comment: Testing | 0 - 0.8 K/uL | EXTERNAL | | | Monocytes | performed at [facility];[address] | | LAB | | | | [address];[place] | | | | | | [address] | | | | + + + + + + | RBC | RBC AND PLT MORPHOLOGY | | EXTERNAL | | | Morphology | APPEAR NORMALComment: | | LAB | | | | Testing performed at | | | | | | [facility];[address];[place] [address] | | | | + + [...] [employer] Conversion - 11/24/2018 6:38 AM PDT HISTORY:Cough. [...] | | | Fingerstick | performed at [facility];[address] | | LAB | | | | [address];[place] | | | | | | [address] | | | | + + + [...] EXTERNAL | | | | performed at [facility];888 | mmol/L | LAB | | | | [address];[place], [place] | | | | | | [address] | | | | + + + [...] EXTERNAL | | | | performed at [facility];[address] | | LAB | | | | [address];[place], [place] | | | | | | [address] | | | | + + + [...] EXTERNAL | | | | performed at [facility] | | LAB | | | | [address];[place], [place] | | | | | | [address] | | | | + + + [...] | | | | | | at [facility];[address] [place] [address] | | | | | | [facility];[place] [address] | | | | + + + [...] | | | Patient | performed at [facility];[address] | | LAB | | | | [address];[place] | | | | | | [address] | | | | + + + [...] | | | | | performed at [facility];88 | | | | | | [facility];[place], [place] | | | | | | [address] | | | | + + + [...] EXTERNAL | | | | performed at [facility] | | LAB | | | | [address] [facility];[place], [place] | | | | | | [address] | | | | + + + [...] EXTERNAL | | | | performed at [facility];[address] | | LAB | | | | [address];[place] | | | | | | [address] | | | | + + + + + + | RED CELL | 2.14 (L)Comment: Testing | 3.70 - 5.10 | EXTERNAL | | | COUNT | performed at [facility];888 | M/uL | LAB | | | | [address];[place] | | | | | | [address] | | | | + + + + + + | Hgb | 6.3 (LL)Comment: CALLED | 11.3 - 15.5 | EXTERNAL | | | | NURSING BEATRICE SCOTT M | g/dL | LAB | | | | AT 0450 BY KMREAD BACK | | | | | | RESULTS VERIFIEDTesting | | | | | | performed at [facility];[address] | | | | | | [address];[place] | | | | | | [address] | | | | + + + + + + | Hematocrit, | 18.5 (LL)Comment: CALLED | 34.0 - 46.0 % | EXTERNAL | | | POC | BEATRICE ANN | | LAB | | | | M AT 0450 BY GlycomindsREAD BACK | | | | | | RESULTS VERIFIEDTesting | | | | | | performed at [facility];[address] | | | | | | [address];[place] | | | | | | [address] | | | | + + + + + + | MCV | 86.4Comment: Testing | 80.0 - 100.0 fl | EXTERNAL | | | | performed at [facility];[address] | | LAB | | | | [address];[place] | | | | | | [address] | | | | + + + + + + | MCH | 29.4Comment: Testing | 27.0 - 34.0 pg | EXTERNAL | | | | performed at [facility];[address] | | LAB | | | | [address];[place] | | | | | | [address] | | | | + + + + + + | MCHC | 34.1Comment: Testing | 32.0 - 35.5 | EXTERNAL | | | | performed at [facility];888 | g/dL | LAB | | | | [address];[place] | | | | | | [address] | | | | + + + + + + | RDW-CV | 42.4Comment: Testing | 37 - 53 fl | EXTERNAL | | | | performed at [facility];[address] | | LAB | | | | [address];[place] | | | | | | [address] | | | | + + + + + + | Platelet | 139 (L)Comment: Testing | 150 - 400 K/uL | EXTERNAL | | | Count | performed at [facility];[address] | | LAB | | | Plasma | [address];[place] | | | | | | [address] | | | | + + + + + + | MPV | 7.3Comment: Testing | fl | EXTERNAL | | | | performed at [facility];[address] | | LAB | | | | [address];[place] | | | | | | [address] | | | | + + + + + + | Differentia | MANUALComment: Testing | | EXTERNAL | | | l Type | performed at [facility];[address] | | LAB | | | | [address];[place] | | | | | | [address] | | | | + + + + + + | Nucleated | 3 (H)Comment: Testing | /100WBC | EXTERNAL | | | Red Blood | performed at [facility];[address] | | LAB | | | Cells | [address];[place] | | | | | | [address] | | | | + + + + + + | Segmented | 85Comment: Testing | % | EXTERNAL | | | Neutrophils | performed at [facility];[address] | | LAB | | | Manual | [address];[place] | | | | | | [address] | | | | + + + + + + | % Bands | 3Comment: Testing | % | EXTERNAL | | | | performed at [facility];[address] | | LAB | | | | [address];[place] | | | | | | [address] | | | | + + + + + + | % | 1Comment: Testing | % | EXTERNAL | | | Metamyelocy | performed at [facility];[address] | | LAB | | | petros | [address];[place] | | | | | | [address] | | | | + + + + + + | Lymphocytes | 8Comment: Testing | % | EXTERNAL | | | Manual | performed at [facility];[address] | | LAB | | | | [address];[place] | | | | | | [address] | | | | + + + + + + | Monocytes | 3Comment: Testing | % | EXTERNAL | | | Manual | performed at [facility];[address] | | LAB | | | | [address];[place] | | | | | | [address] | | | | + + + + + + | Absolute | 12.9 (H)Comment: Testing | 1.9 - 7.4 K/uL | EXTERNAL | | | Neutrophils | performed at [facility];[address] | | LAB | | | | [address];[place] | | | | | | [address] | | | | + + + + + + | Bands | 0.5 (H)Comment: Testing | 0 - 0.2 K/uL | EXTERNAL | | | Manual | performed at [facility];[address] | | LAB | | | | [address];[place] | | | | | | [address] | | | | + + + + + + | Absolute | 0.2 (H)Comment: Testing | K/uL | EXTERNAL | | | Metamyelocy | performed at [facility];[address] | | LAB | | | petros | [address];[place] | | | | | | [address] | | | | + + + + + + | Absolute | 1.2Comment: Testing | 1.0 - 3.9 K/uL | EXTERNAL | | | Lymphocytes | performed at [facility];[address] | | LAB | | | | [address];[place] | | | | | | [address] | | | | + + + + + + | Absolute | 0.5Comment: Testing | 0 - 0.8 K/uL | EXTERNAL | | | Monocytes | performed at [facility];[address] | | LAB | | | | [address];[place] | | | | | | [address] | | | | + + + + + + | RBC | 1+Comment: POLYNORMAL | | EXTERNAL | | | Morphology | PLT MORPHTesting | | LAB | | | | performed at [facility];[address] | | | | | | [address];[place] | | | | | | [address] | | | | | | | [...] performed at [facility], [address] | | LAB | | | | [address], | | | | | | [place] [address] | | | | + + + [...] EXTERNAL | | | | performed at [facility];[address] | | LAB | | | | [address];[place], [place] | | | | | | [address] | | | | + + + [...] performed at [facility], [address] | | LAB | | | | [place], | | | | | | [place] [address] | | | | + + + [...] | | | | | [place] [address] | | | | + + + [...] | | | | | [place] [address] | | | | + + + + + + | Albumin | 2.3 (L)Comment: Testing | 3.6 - 5.0 g/dL | EXTERNAL | | | | performed at [facility], [address] | | LAB | | | | [address], | | | | | | [place] [address] | | | | + + + + + + | Bilirubin | 1.0Comment: Testing | 0.1 - 1.5 mg/dL | EXTERNAL | | | Total | performed at [facility], [address] | | LAB | | | | [address], | | | | | | [place] [address] | | | | + + + + + + | Bilirubin | 0.4 (H)Comment: Testing | 0.0 - 0.3 mg/dL | EXTERNAL | | | Direct | performed at [facility], [address] | | LAB | | | | [address], | | | | | | [place] [address] | | | | + + + + + + | ALP, | 44Comment: Testing | 35 - 115 U/L | EXTERNAL | | | External | performed at [facility], [address] | | LAB | | | | [address], | | | | | | [place] [address] | | | | + + + + + + | AST | 1,172 (H)Comment: | 10 - 45 U/L | EXTERNAL | | | | Testing performed at | | LAB | | | | [facility], [address] | | | | | | [place] | | | | | | [address] | | | | + + + + + + | ALT | 901 (H)Comment: Testing | 10 - 65 U/L | EXTERNAL | | | | performed at [facility], [address] | | LAB | | | | [address], | | | | | | [place] [address] | | | | + + + [...] | | | | | [place] [address] | | | | + + + + + + | K | 3.7Comment: Testing | 3.5 - 4.9 | EXTERNAL | | | | performed at [facility], [address] | mmol/L | LAB | | | | [address], | | | | | | [place] [address] | | | | + + + + + + | Cl | 113 (H)Comment: Testing | 99 - 109 mmol/L | EXTERNAL | | | | performed at [facility], [address] | | LAB | | | | [address], | | | | | | [place] [address] | | | | + + + + + + | CO2 | 28Comment: Testing | 23 - 32 mmol/L | EXTERNAL | | | | performed at [facility], [address] | | LAB | | | | [address], | | | | | | [place] [address] | | | | + + + + + + | Anion Gap | 10Comment: Testing | 5 - 20 mmol/L | EXTERNAL | | | | performed at [facility], [address] | | LAB | | | | [address], | | | | | | [place] [address] | | | | + + + + + + | Glucose, | 146 (H)Comment: Testing | 65 - 99 mg/dL | EXTERNAL | | | Fasting | performed at [facility], [address] | | LAB | | | | [address], | | | | | | [place] [address] | | | | + + + + + + | BUN | 37 (H)Comment: Testing | 8 - 25 mg/dL | EXTERNAL | | | | performed at [facility], [address] | | LAB | | | | [address], | | | | | | [place] [address] | | | | + + + + + + | Creatinine | 1.21 (H)Comment: Testing | 0.50 - 1.00 | EXTERNAL | | | | performed at [facility], [address] | mg/dL | LAB | | | | [address], | | | | | | [place] [address] | | | | + + + + + + | BUN/Creatin | 31Comment: Testing | | EXTERNAL | | | ine Ratio | performed at [facility], [address] | | LAB | | | | [address], | | | | | | [place] [address] | | | | + + + + + + | Calcium | 7.9 (L)Comment: Testing | 8.5 - 10.2 | EXTERNAL | | | | performed at [facility], [address] | mg/dL | LAB | | | | [address], | | | | | | [place] [address] | | | | + + + [...] | at [facility], [address] | | | | | | [address], | | | | | | [place] [address] | | | | + + + [...] EXTERNAL | | | | performed at [facility];[address] | | LAB | | | | [address];[place] | | | | | | [address] | | | | + + + + + + | RED CELL | 3.39 (L)Comment: Testing | 3.70 - 5.10 | EXTERNAL | | | COUNT | performed at [facility];[address] | M/uL | LAB | | | | [address];[place] | | | | | | [address] | | | | + + + + + + | Hgb | 9.6 (L)Comment: Testing | 11.3 - 15.5 | EXTERNAL | | | | performed at [facility];888 | g/dL | LAB | | | | [address];[place] | | | | | | [address] | | | | + + + + + + | Hematocrit, | 29.4 (L)Comment: Testing | 34.0 - 46.0 % | EXTERNAL | | | POC | performed at [facility];[address] | | LAB | | | | [address];[place] | | | | | | [address] | | | | + + + + + + | MCV | 86.8Comment: Testing | 80.0 - 100.0 fl | EXTERNAL | | | | performed at [facility];[address] | | LAB | | | | [address];[place] | | | | | | [address] | | | | + + + + + + | MCH | 28.2Comment: Testing | 27.0 - 34.0 pg | EXTERNAL | | | | performed at [facility];[address] | | LAB | | | | [address];[place] | | | | | | [address] | | | | + + + + + + | MCHC | 32.5Comment: Testing | 32.0 - 35.5 | EXTERNAL | | | | performed at [facility];888 | g/dL | LAB | | | | [address];[place] | | | | | | [address] | | | | + + + + + + | RDW-CV | 42.4Comment: Testing | 37 - 53 fl | EXTERNAL | | | | performed at [facility];[address] | | LAB | | | | [address];[place] | | | | | | [address] | | | | + + + + + + | Platelet | 57 (L)Comment: Testing | 150 - 400 K/uL | EXTERNAL | | | Count | performed at [facility];[address] | | LAB | | | Plasma | [address];[place] | | | | | | [address] | | | | + + + + + + | MPV | 8.8Comment: Testing | fl | EXTERNAL | | | | performed at [facility];[address] | | LAB | | | | [address];[place] | | | | | | [address] | | | | + + + + + + | Differentia | MANUALComment: Testing | | EXTERNAL | | | l Type | performed at [facility];[address] | | LAB | | | | [address];[place] | | | | | | [address] | | | | + + + + + + | Nucleated | 2 (H)Comment: Testing | /100WBC | EXTERNAL | | | Red Blood | performed at [facility];[address] | | LAB | | | Cells | [address];[place] | | | | | | [address] | | | | + + + + + + | Segmented | 76Comment: Testing | % | EXTERNAL | | | Neutrophils | performed at [facility];[address] | | LAB | | | Manual | [address];[place] | | | | | | [address] | | | | + + + + + + | % Bands | 10Comment: Testing | % | EXTERNAL | | | | performed at [facility];[address] | | LAB | | | | [address];[place] | | | | | | [address] | | | | + + + + + + | % | 2Comment: Testing | % | EXTERNAL | | | Metamyelocy | performed at [facility];[address] | | LAB | | | petros | [address];[place] | | | | | | [address] | | | | + + + + + + | Lymphocytes | 9Comment: Testing | % | EXTERNAL | | | Manual | performed at [facility];[address] | | LAB | | | | [address];[place] | | | | | | [address] | | | | + + + + + + | Monocytes | 3Comment: Testing | % | EXTERNAL | | | Manual | performed at [facility];[address] | | LAB | | | | [address];[place] | | | | | | [address] | | | | + + + + + + | Absolute | 11.0 (H)Comment: Testing | 1.9 - 7.4 K/uL | EXTERNAL | | | Neutrophils | performed at [facility];[address] | | LAB | | | | [address];[place] | | | | | | [address] | | | | + + + + + + | Bands | 1.5 (H)Comment: Testing | 0 - 0.2 K/uL | EXTERNAL | | | Manual | performed at [facility];[address] | | LAB | | | | [address];[place] | | | | | | [address] | | | | + + + + + + | Absolute | 0.3 (H)Comment: Testing | K/uL | EXTERNAL | | | Metamyelocy | performed at [facility];[address] | | LAB | | | petros | [address];[place] | | | | | | [address] | | | | + + + + + + | Absolute | 1.3Comment: Testing | 1.0 - 3.9 K/uL | EXTERNAL | | | Lymphocytes | performed at [facility];[address] | | LAB | | | | [address];[place] | | | | | | [address] | | | | + + + + + + | Absolute | 0.4Comment: Testing | 0 - 0.8 K/uL | EXTERNAL | | | Monocytes | performed at [facility];[address] | | LAB | | | | [address];[place] | | | | | | [address] | | | | + + + + + + | Platelet | DECREASEDComment: | | EXTERNAL | | | Estimate | Testing performed at | | LAB | | | | [facility];[address];[place] [address] | | | | + + + + + + | RBC | 1+Comment: POLYTesting | | EXTERNAL | | | Morphology | performed at [facility];[address] | | LAB | [...] | | | Fingerstick | performed at [facility];[address] | | LAB | | | | [address];[place] | | | | | | [address] | | | | + + + + + + + + | Specimen | + + | | + + + +---------+ + + | Performing | Address | City/State/Zipcode | Phone Number | | Organization | | | | + +---------+ + + | EXTERNAL LAB | | | | + +---------+ + + ELLIOT GROSS [id number], Arterial (04/23/2014 1:48 AM PST) + + + + + + | Component | Value | Ref Range | Performed | Pathologist | | | | | At | Signature | + + + + + + | PH ART | 7.356Comment: Testing | 7.350 - 7.450 | EXTERNAL | | | | performed at [facility];[address] | | LAB | | | | [address];[place] | | | | | | [address] | | | | + + + + + + | PCO2 ART | 44Comment: Testing | 35 - 45 mmHg | EXTERNAL | | | | performed at [facility];[address] | | LAB | | | | [address];[place] | | | | | | [address] | | | | + + + + + + | PO2 ART | 251 (H)Comment: Testing | 80 - 105 mmHg | EXTERNAL | | | | performed at [facility];[address] | | LAB | | | | [address];[place] | | | | | | [address] | | | | + + + + + + | HCO3 ART | 24Comment: Testing | 22 - 26 mmol/L | EXTERNAL | | | | performed at [facility];[address] | | LAB | | | | [address];[place] | | | | | | [address] | | | | + + + + + + | POC | 26Comment: Testing | 23 - 27 mEq/L | EXTERNAL | | | APPEARANCE | performed at [facility];[address] | | LAB | | | UA | [address];[place] | | | | | | [address] | | | | + + + + + + | Base | 1Comment: Testing | 0.0 - 2.0 | EXTERNAL | | | deficit | performed at [facility];888 | mmol/L | LAB | | | | [address];[place] | | | | | | [address] | | | | + + + + + + | O2 SAT ART | 100 (H)Comment: Testing | 95 - 98 % | EXTERNAL | | | | performed at [facility];[address] | | LAB | | | | [address];[place] | | | | | | [address] | | | | + + + + + + | Sodium, POC | 146 (H)Comment: Testing | 135 - 145 mEq/L | EXTERNAL | | | | performed at [facility];[address] | | LAB | | | | [address];[place] | | | | | | [address] | | | | + + + + + + | Potassium, | 4.5Comment: Testing | 3.5 - 5.0 mEq/L | EXTERNAL | | | POC | performed at [facility];[address] | | LAB | | | | [address];[place] | | | | | | [address] | | | | + + + + + + | Ionized | 0.91 (L)Comment: Testing | 1.12 - 1.32 | EXTERNAL | | | Calcium, | performed at [facility];888 | mmol/L | LAB | | | POC | [address];[place] | | | | | | [address] | | | | + + + + + + | Glucose, | 232 (H)Comment: Testing | 65 - 99 mg/dL | EXTERNAL | | | POC | performed at [facility];[address] | | LAB | | | | [address];[place] | | | | | | [address] | | | | + + + + + + | Hematocrit, | 32 (L)Comment: Testing | 35.0 - 46.0 % | EXTERNAL | | | POC | performed at [facility];[address] | | LAB | | | | [address];[place] | | | | | | [address] | | | | + + + + + + | Hemoglobin, | 10.9 (L)Comment: Testing | 11.6 - 15.5 | EXTERNAL | | | POC | performed at [facility];888 | g/dL | LAB | | | | [address];[place] | | | | | | [address] | | | | + + + [...] | | | | | | ACUTE SC CKTRP PHONED TO | | | | | | ICU HELADIO Patiño AT 0339 BY | | | | | | LJREAD BACK RESULTS | | | | | | VERIFIEDTesting | | | | | | performed at [facility];[address] | | | | | | [address];[place], [place] | | | | | | [address] | | | | + + + [...] | | | M AT 0145 [facility] | | | | | | RESULTS VERIFIEDTesting | | | | | | performed at [facility];[address] | | | | | | [address];[place] | | | | | | [address] | | | | + + + + + + | RED CELL | 3.32 (L)Comment: Testing | 3.70 - 5.10 | EXTERNAL | | | COUNT | performed at [facility];888 | M/uL | LAB | | | | [address];[place] | | | | | | [address] | | | | + + + + + + | Hgb | 9.7 (L)Comment: Testing | 11.3 - 15.5 | EXTERNAL | | | | performed at [facility];888 | g/dL | LAB | | | | [address];[place] | | | | | | [address] | | | | + + + + + + | Hematocrit, | 29.3 (L)Comment: Testing | 34.0 - 46.0 % | EXTERNAL | | | POC | performed at [facility];[address] | | LAB | | | | [address];[place] | | | | | | [address] | | | | + + + + + + | MCV | 88.5Comment: Testing | 80.0 - 100.0 fl | EXTERNAL | | | | performed at [facility];[address] | | LAB | | | | [address];[place] | | | | | | [address] | | | | + + + + + + | MCH | 29.1Comment: Testing | 27.0 - 34.0 pg | EXTERNAL | | | | performed at [facility];[address] | | LAB | | | | [address];[place] | | | | | | [address] | | | | + + + + + + | MCHC | 32.9Comment: Testing | 32.0 - 35.5 | EXTERNAL | | | | performed at [facility];888 | g/dL | LAB | | | | [address];[place] | | | | | | [address] | | | | + + + + + + | RDW-CV | 45.9Comment: Testing | 37 - 53 fl | EXTERNAL | | | | performed at [facility];[address] | | LAB | | | | [address];[place] | | | | | | [address] | | | | + + + + + + | Platelet | 155Comment: Testing | 150 - 400 K/uL | EXTERNAL | | | Count | performed at [facility];[address] | | LAB | | | Plasma | [address];[place] | | | | | | [address] | | | | + + + + + + | MPV | 8.4Comment: Testing | fl | EXTERNAL | | | | performed at [facility];[address] | | LAB | | | | [address];[place] | | | | | | [address] | | | | + + + + + + | Differentia | MANUALComment: Testing | | EXTERNAL | | | l Type | performed at [facility];[address] | | LAB | | | | [address];[place] | | | | | | [address] | | | | + + + + + + | Nucleated | 2 (H)Comment: Testing | /100WBC | EXTERNAL | | | Red Blood | performed at [facility];[address] | | LAB | | | Cells | [address];[place] | | | | | | [address] | | | | + + + + + + | Segmented | 69Comment: Testing | % | EXTERNAL | | | Neutrophils | performed at [facility];[address] | | LAB | | | Manual | [address];[place] | | | | | | [address] | | | | + + + + + + | % Bands | 7Comment: Testing | % | EXTERNAL | | | | performed at [facility];[address] | | LAB | | | | [address];[place] | | | | | | [address] | | | | + + + + + + | % | 4Comment: Testing | % | EXTERNAL | | | Metamyelocy | performed at [facility];[address] | | LAB | | | petros | [address];[place] | | | | | | [address] | | | | + + + + + + | % | 2Comment: Testing | % | EXTERNAL | | | Myelocytes | performed at [facility];[address] | | LAB | | | | [address];[place] | | | | | | [address] | | | | + + + + + + | Lymphocytes | 10Comment: Testing | % | EXTERNAL | | | Manual | performed at [facility];[address] | | LAB | | | | [address];[place] | | | | | | [address] | | | | + + + + + + | Monocytes | 8Comment: Testing | % | EXTERNAL | | | Manual | performed at [facility];[address] | | LAB | | | | [address];[place] | | | | | | [address] | | | | + + + + + + | Absolute | 21.7 (H)Comment: Testing | 1.9 - 7.4 K/uL | EXTERNAL | | | Neutrophils | performed at [facility];[address] | | LAB | | | | [address];[place] | | | | | | [address] | | | | + + + + + + | Bands | 2.2 (H)Comment: Testing | 0 - 0.2 K/uL | EXTERNAL | | | Manual | performed at [facility];[address] | | LAB | | | | [address];[place] | | | | | | [address] | | | | + + + + + + | Absolute | 1.3 (H)Comment: Testing | K/uL | EXTERNAL | | | Metamyelocy | performed at [facility];[address] | | LAB | | | petros | [address];[place] | | | | | | [address] | | | | + + + + + + | Absolute | 0.6 (H)Comment: Testing | K/uL | EXTERNAL | | | Myelocytes | performed at [facility];[address] | | LAB | | | | [address];[place] | | | | | | [address] | | | | + + + + + + | Absolute | 3.1Comment: Testing | 1.0 - 3.9 K/uL | EXTERNAL | | | Lymphocytes | performed at [facility];[address] | | LAB | | | | [address];[place] | | | | | | [address] | | | | + + + + + + | Absolute | 2.5 (H)Comment: Testing | 0 - 0.8 K/uL | EXTERNAL | | | Monocytes | performed at [facility];[address] | | LAB | | | | [address];[place] | | | | | | [address] | | | | + + + + + + | RBC | 1+Comment: POLYNORMAL | | EXTERNAL | | | Morphology | PLT MORPHTesting | | LAB | | | | performed at [facility];[address] | | | | | | [address];[place] | | | | | | [address] | | | | | | | [...] EXTERNAL | | | | performed at [facility];888 | mmol/L | LAB | | | | [address];[place] | | | | | | [address] [...] | + +---------+ + + POC GINNY CG8 Arterial (04/23/2014 12:14 AM PST) + + + + + + | Component | Value | Ref Range | Performed | Pathologist | | | | | At | Signature | + + + + + + | FiO2, POC | 40Comment: Testing | % | EXTERNAL | | | | performed at [facility];[address] | | LAB | | | | [address];[place] | | | | | | [address] | | | | + + + + + + | PH ART | 7.438Comment: Testing | 7.350 - 7.450 | EXTERNAL | | | | performed at [facility];[address] | | LAB | | | | [address];[place] | | | | | | [address] | | | | + + + + + + | PCO2 ART | 31 (L)Comment: Testing | 35 - 45 mmHg | EXTERNAL | | | | performed at [facility];[address] | | LAB | | | | [address];[place] | | | | | | [address] | | | | + + + + + + | PO2 ART | 115 (H)Comment: Testing | 80 - 105 mmHg | EXTERNAL | | | | performed at [facility];[address] | | LAB | | | | [address];[place] | | | | | | [address] | | | | + + + + + + | HCO3 ART | 21 (L)Comment: Testing | 22 - 26 mmol/L | EXTERNAL | | | | performed at [facility];[address] | | LAB | | | | [address];[place] | | | | | | [address] | | | | + + + + + + | POC | 22 (L)Comment: Testing | 23 - 27 mEq/L | EXTERNAL | | | APPEARANCE | performed at [facility];[address] | | LAB | | | UA | [address];[place] | | | | | | [address] | | | | + + + + + + | Base | 3 (H)Comment: Testing | 0.0 - 2.0 | EXTERNAL | | | deficit | performed at [facility];888 | mmol/L | LAB | | | | [address];[place] | | | | | | [address] | | | | + + + + + + | O2 SAT ART | 99 (H)Comment: Testing | 95 - 98 % | EXTERNAL | | | | performed at [facility];[address] | | LAB | | | | [address];[place] | | | | | | [address] | | | | + + + + + + | Sodium, POC | 149 (H)Comment: Testing | 135 - 145 mEq/L | EXTERNAL | | | | performed at [facility];[address] | | LAB | | | | [address];[place] | | | | | | [address] | | | | + + + + + + | Potassium, | 4.3Comment: Testing | 3.5 - 5.0 mEq/L | EXTERNAL | | | POC | performed at [facility];[address] | | LAB | | | | [address];[place] | | | | | | [address] | | | | + + + + + + | Ionized | 0.98 (L)Comment: Testing | 1.12 - 1.32 | EXTERNAL | | | Calcium, | performed at [facility];888 | mmol/L | LAB | | | POC | [address];[place] | | | | | | [address] | | | | + + + + + + | Glucose, | 52 (L)Comment: Testing | 65 - 99 mg/dL | EXTERNAL | | | POC | performed at [facility];[address] | | LAB | | | | [address];[place] | | | | | | [address] | | | | + + + + + + | Hematocrit, | 23 (LL)Comment: Testing | 35.0 - 46.0 % | EXTERNAL | | | POC | performed at [facility];[address] | | LAB | | | | [address];[place] | | | | | | [address] | | | | + + + + + + | Hemoglobin, | 7.8 (LL)Comment: Testing | 11.6 - 15.5 | EXTERNAL | | | POC | performed at [facility];888 | g/dL | LAB | | | | [address];[place] | | | | | | [address] | | | | + + + + + + | Comment, | Tidal Volume = | | EXTERNAL | | | POC | 460Comment: Peep = 8Resp | | LAB | | | | Rate = 16Testing | | | | | | performed at [facility];[address] | | | | | | [address];[place], [place] | | | | | | [address] | | | | + + + [...] | | | Fingerstick | performed at [facility];[address] | | LAB | | | | [address];[place] | | | | | | [address] | | | | + + + [...] | Procedure Note | + + | Judson Rad Conversion - 11/24/2018 6:38 AM PDT MACKENZIE [id number] years FemaleCT | | HEAD WO CONTRAST04/22/2014 [...] + + + | MACKENZIE HARTLEY CT CHEST ABDOMEN PELVIS WO CONTRAST 04/22/2014 [...] Conversion - 11/24/2018 6:38 AM PDT MACKENZIE YOUNGCT CHEST ABDOMEN PELVIS WO | | CONTRAST04/22/2014 [...] | | | Fingerstick | performed at [facility];[address] | | LAB | | | | [address];[place] | | | | | | [address] | | | | + + + [...] | | | Fingerstick | performed at [facility];[address] | | LAB | | | | [address];[place], [place] | | | | | | [address] | | | | + + + [...] EXTERNAL | | | | performed at [facility];888 | mmol/L | LAB | | | | [address];[place], [place] | | | | | | [address] | | | | + + + [...] EXTERNAL | | | | performed at [facility] | | LAB | | | | [address];[place] | | | | | | [address] | | | | + + + [...] EXTERNAL | | | | performed at [facility];[address] | | LAB | | | | [address];[place], [place] | | | | | | [address] | | | | + + + [...] | | | | | | ACUTE SC RESULT READ | | | | | | BACK BY:NAHUN Asher/RUDI AT | | | | | | 2112 SAMTesting | | | | | | performed at [facility];[address] | | | | | | [address];[place], [place] | | | | | | [address] | | | | + + + [...] | | | Patient | performed at [facility];[address] | | LAB | | | | [address];[place] | | | | | | [address] | | | | + + + [...] | | | | | performed at [facility] | | | | | | [facility];[place], [place] | | | | | | [address] | | | | + + + [...] EXTERNAL | | | | performed at [facility];[address] | | LAB | | | | [address];[place], [place] | | | | | | [address] | | | | + + + [...] ON | | | | | | [id number] performed | | | | | | at [facility];[address];[place] [address] | | | | + + + + + + | RED CELL | 2.58 (L)Comment: Testing | 3.70 - 5.10 | EXTERNAL | | | COUNT | performed at [facility];888 | M/uL | LAB | | | | [address];[place] | | | | | | [address] | | | | + + + + + + | Hgb | 7.3 (L)Comment: Testing | 11.3 - 15.5 | EXTERNAL | | | | performed at [facility];888 | g/dL | LAB | | | | [address];[place] | | | | | | [address] | | | | + + + + + + | Hematocrit, | 22.1 (L)Comment: Testing | 34.0 - 46.0 % | EXTERNAL | | | POC | performed at [facility];[address] | | LAB | | | | [address];[place] | | | | | | [address] | | | | + + + + + + | MCV | 85.8Comment: Testing | 80.0 - 100.0 fl | EXTERNAL | | | | performed at [facility];[address] | | LAB | | | | [address];[place] | | | | | | [address] | | | | + + + + + + | MCH | 28.5Comment: Testing | 27.0 - 34.0 pg | EXTERNAL | | | | performed at [facility];[address] | | LAB | | | | [address];[place] | | | | | | [address] | | | | + + + + + + | MCHC | 33.2Comment: Testing | 32.0 - 35.5 | EXTERNAL | | | | performed at [facility];888 | g/dL | LAB | | | | [address];[place] | | | | | | [address] | | | | + + + + + + | RDW-CV | 43.3Comment: Testing | 37 - 53 fl | EXTERNAL | | | | performed at [facility];[address] | | LAB | | | | [address];[place] | | | | | | [address] | | | | + + + + + + | Platelet | 197Comment: Testing | 150 - 400 K/uL | EXTERNAL | | | Count | performed at [facility];[address] | | LAB | | | Plasma | [address];[place] | | | | | | [address] | | | | + + + + + + | MPV | 7.4Comment: Testing | fl | EXTERNAL | | | | performed at [facility];[address] | | LAB | | | | [address];[place] | | | | | | [address] | | | | + + + + + + | Differentia | MANUALComment: Testing | | EXTERNAL | | | l Type | performed at [facility];[address] | | LAB | | | | [address];[place] | | | | | | [address] | | | | + + + + + + | Nucleated | 6 (H)Comment: Testing | /100WBC | EXTERNAL | | | Red Blood | performed at [facility];[address] | | LAB | | | Cells | [address];[place] | | | | | | [address] | | | | + + + + + + | Segmented | 69Comment: Testing | % | EXTERNAL | | | Neutrophils | performed at [facility];[address] | | LAB | | | Manual | [address];[place] | | | | | | [address] | | | | + + + + + + | % Bands | 7Comment: Testing | % | EXTERNAL | | | | performed at [facility];[address] | | LAB | | | | [address];[place] | | | | | | [address] | | | | + + + + + + | % | 2Comment: Testing | % | EXTERNAL | | | Metamyelocy | performed at [facility];[address] | | LAB | | | petros | [address];[place] | | | | | | [address] | | | | + + + + + + | % | 1Comment: Testing | % | EXTERNAL | | | Myelocytes | performed at [facility];[address] | | LAB | | | | [address];[place] | | | | | | [address] | | | | + + + + + + | Lymphocytes | 14Comment: Testing | % | EXTERNAL | | | Manual | performed at [facility];[address] | | LAB | | | | [address];[place] | | | | | | [address] | | | | + + + + + + | Monocytes | 6Comment: Testing | % | EXTERNAL | | | Manual | performed at [facility];[address] | | LAB | | | | [address];[place] | | | | | | [address] | | | | + + + + + + | Eosinophils | 1Comment: Testing | % | EXTERNAL | | | Manual | performed at [facility];888 | | LAB | | | | [address];[place] | | | | | | [address] | | | | + + + + + + | Absolute | 21.3 (H)Comment: Testing | 1.9 - 7.4 K/uL | EXTERNAL | | | Neutrophils | performed at [facility];[address] | | LAB | | | | [address];[place] | | | | | | [address] | | | | + + + + + + | Bands | 2.2 (H)Comment: Testing | 0 - 0.2 K/uL | EXTERNAL | | | Manual | performed at [facility];[address] | | LAB | | | | [address];[place] | | | | | | [address] | | | | + + + + + + | Absolute | 0.6 (H)Comment: Testing | K/uL | EXTERNAL | | | Metamyelocy | performed at [facility];888 | | LAB | | | petros | [address];[place] | | | | | | [address] | | | | + + + + + + | Absolute | 0.3 (H)Comment: Testing | K/uL | EXTERNAL | | | Myelocytes | performed at [facility];[address] | | LAB | | | | [address];[place] | | | | | | [address] | | | | + + + + + + | Absolute | 4.3 (H)Comment: Testing | 1.0 - 3.9 K/uL | EXTERNAL | | | Lymphocytes | performed at [facility];[address] | | LAB | | | | [address];[place] | | | | | | [address] | | | | + + + + + + | Absolute | 1.8 (H)Comment: Testing | 0 - 0.8 K/uL | EXTERNAL | | | Monocytes | performed at [facility];[address] | | LAB | | | | [address];[place] | | | | | | [address] | | | | + + + + + + | Absolute | 0.3Comment: Testing | 0 - 0.5 K/uL | EXTERNAL | | | Eosinophils | performed at [facility];[address] | | LAB | | | | [address];[place] | | | | | | [address] | | | | + + + + + + | Platelet | ADEQUATEComment: Testing | | EXTERNAL | | | Estimate | performed at [facility];[address] | | LAB | | | | [address];[place] | | | | | | [address] | | | | + + + + + + | RBC | 1+Comment: GIANT | | EXTERNAL | | | Morphology | PLATELETS1+POLYTesting | | LAB | | | | performed at [facility];[address] | | | | | | [address];[place] | | | | | | [address] | | | | | |Testing performed at [facility];[address];[place] [address] | | | | | | | [...] EXTERNAL | | | | performed at [facility];[address] | | LAB | | | | [address];[place], [place] | | | | | | [address] | | | | + + + [...] EXTERNAL | | | | performed at [facility];[address] | | LAB | | | | [address];[place] | | | | | | [address] | | | | + + + [...] EXTERNAL | | | | performed at [facility];888 | mmol/L | LAB | | | | [address];[place] | | | | | | [address] | | | | + + + + + + | K | 4.0Comment: Testing | 3.5 - 4.9 | EXTERNAL | | | | performed at [facility];888 | mmol/L | LAB | | | | [address];[place] | | | | | | [address] | | | | + + + + + + | Cl | 112 (H)Comment: Testing | 99 - 109 mmol/L | EXTERNAL | | | | performed at [facility];[address] | | LAB | | | | [address];[place] | | | | | | [address] | | | | + + + + + + | CO2 | 30Comment: Testing | 23 - 32 mmol/L | EXTERNAL | | | | performed at [facility];[address] | | LAB | | | | [address];[place] | | | | | | [address] | | | | + + + + + + | Anion Gap | 12Comment: Testing | 5 - 20 mmol/L | EXTERNAL | | | | performed at [facility];[address] | | LAB | | | | [address];[place] | | | | | | [address] | | | | + + + + + + | Glucose, | 67Comment: Testing | 65 - 99 mg/dL | EXTERNAL | | | Fasting | performed at [facility];[address] | | LAB | | | | [address];[place] | | | | | | [address] | | | | + + + + + + | BUN | 37 (H)Comment: Testing | 8 - 25 mg/dL | EXTERNAL | | | | performed at [facility];[address] | | LAB | | | | [address];[place] | | | | | | [address] | | | | + + + + + + | Creatinine | 1.34 (H)Comment: Testing | 0.50 - 1.00 | EXTERNAL | | | | performed at [facility];888 | mg/dL | LAB | | | | [address];[place] | | | | | | [address] | | | | + + + + + + | BUN/Creatin | 28Comment: Testing | | EXTERNAL | | | ine Ratio | performed at [facility];[address] | | LAB | | | | [address];[place] | | | | | | [address] | | | | + + + + + + | Calcium | 7.9 (L)Comment: Testing | 8.5 - 10.2 | EXTERNAL | | | | performed at [facility];888 | mg/dL | LAB | | | | [address];[place] | | | | | | [address] | | | | + + + [...] | | | | | | at [facility];[address];[place] [address] | | | | + + + [...] | | | Fingerstick | performed at [facility];[address] | | LAB | | | | [address];[place], [place] | | | | | | [address] | | | | + + + [...] | | | Fingerstick | performed at [facility];[address] | | LAB | | | | [address];[place] | | | | | | [address] | | | | + + + [...] | | | Fingerstick | performed at [facility];[address] | | LAB | | | | [address];[place], [place] | | | | | | [address] | | | | + + + [...] ON | | | | | | [id number] performed | | | | | | at [facility];[address] [place] [address] | | | | | | [address];[place] [address] | | | | + + + + + + | RED CELL | 2.91 (L)Comment: Testing | 3.70 - 5.10 | EXTERNAL | | | COUNT | performed at [facility];888 | M/uL | LAB | | | | [address];[place] | | | | | | [address] | | | | + + + + + + | Hgb | 8.4 (L)Comment: Testing | 11.3 - 15.5 | EXTERNAL | | | | performed at [facility];888 | g/dL | LAB | | | | [address];[place] | | | | | | [address] | | | | + + + + + + | Hematocrit, | 24.8 (L)Comment: Testing | 34.0 - 46.0 % | EXTERNAL | | | POC | performed at [facility];[address] | | LAB | | | | [address];[place] | | | | | | [address] | | | | + + + + + + | MCV | 85.1Comment: Testing | 80.0 - 100.0 fl | EXTERNAL | | | | performed at [facility];[address] | | LAB | | | | [address];[place] | | | | | | [address] | | | | + + + + + + | MCH | 28.9Comment: Testing | 27.0 - 34.0 pg | EXTERNAL | | | | performed at [facility];[address] | | LAB | | | | [address];[place] | | | | | | [address] | | | | + + + + + + | MCHC | 34.0Comment: Testing | 32.0 - 35.5 | EXTERNAL | | | | performed at [facility];888 | g/dL | LAB | | | | [address];[place] | | | | | | [address] | | | | + + + + + + | RDW-CV | 42.9Comment: Testing | 37 - 53 fl | EXTERNAL | | | | performed at [facility];[address] | | LAB | | | | [address];[place] | | | | | | [address] | | | | + + + + + + | Platelet | 228Comment: Testing | 150 - 400 K/uL | EXTERNAL | | | Count | performed at [facility];[address] | | LAB | | | Plasma | [address];[place] | | | | | | [address] | | | | + + + + + + | MPV | 7.2Comment: Testing | fl | EXTERNAL | | | | performed at [facility];[address] | | LAB | | | | [address];[place] | | | | | | [address] | | | | + + + + + + | Differentia | MANUALComment: Testing | | EXTERNAL | | | l Type | performed at [facility];[address] | | LAB | | | | [address];[place] | | | | | | [address] | | | | + + + + + + | Segmented | 69Comment: Testing | % | EXTERNAL | | | Neutrophils | performed at [facility];[address] | | LAB | | | Manual | [address];[place] | | | | | | [address] | | | | + + + + + + | % Bands | 14Comment: Testing | % | EXTERNAL | | | | performed at [facility];[address] | | LAB | | | | [address];[place] | | | | | | [address] | | | | + + + + + + | % | 3Comment: Testing | % | EXTERNAL | | | Metamyelocy | performed at [facility];[address] | | LAB | | | petros | [address];[place] | | | | | | [address] | | | | + + + + + + | % | 1Comment: Testing | % | EXTERNAL | | | Myelocytes | performed at [facility];[address] | | LAB | | | | [address];[place] | | | | | | [address] | | | | + + + + + + | Lymphocytes | 9Comment: Testing | % | EXTERNAL | | | Manual | performed at [facility];[address] | | LAB | | | | [address];[place] | | | | | | [address] | | | | + + + + + + | Monocytes | 4Comment: Testing | % | EXTERNAL | | | Manual | performed at [facility];[address] | | LAB | | | | [address];[place] | | | | | | [address] | | | | + + + + + + | Absolute | 23.2 (H)Comment: Testing | 1.9 - 7.4 K/uL | EXTERNAL | | | Neutrophils | performed at [facility];[address] | | LAB | | | | [address];[place] | | | | | | [address] | | | | + + + + + + | Bands | 4.7 (H)Comment: Testing | 0 - 0.2 K/uL | EXTERNAL | | | Manual | performed at [facility];[address] | | LAB | | | | [address];[place] | | | | | | [address] | | | | + + + + + + | Absolute | 1.0 (H)Comment: Testing | K/uL | EXTERNAL | | | Metamyelocy | performed at [facility];888 | | LAB | | | petros | [address];[place] | | | | | | [address] | | | | + + + + + + | Absolute | 0.3 (H)Comment: Testing | K/uL | EXTERNAL | | | Myelocytes | performed at [facility] [place];[address] | | LAB | | | | [address];[place] | | | | | | [address] | | | | + + + + + + | Absolute | 3.0Comment: Testing | 1.0 - 3.9 K/uL | EXTERNAL | | | Lymphocytes | performed at [facility] [place];[address] | | LAB | | | | [address];[place] | | | | | | [address] | | | | + + + + + + | Absolute | 1.3 (H)Comment: Testing | 0 - 0.8 K/uL | EXTERNAL | | | Monocytes | performed at [facility] [place];[address] | | LAB | | | | [address];[place] | | | | | | [address] | | | | + + + + + + | Platelet | ADEQUATEComment: Testing | | EXTERNAL | | | Estimate | performed at [facility] [place];888 | | LAB | | | | [address];[place] | | | | | | [address] | | | | + + + + + + | RBC | 1+Comment: TOXIC | | EXTERNAL | | | Morphology | GRANULATION1+POLYTesting | | LAB | | | | performed at [facility];888 | | | | | | [address];[place] | | | | | | [address] | | | | | |Testing performed at [facility] [place];[address];[place] [address] | | | | | | | | | | + + + + + + | Nucleated | 4 (H)Comment: Testing | /100WBC | EXTERNAL | | | Red Blood | performed at [facility] [place] [facility];[address] | | LAB | | | Cells | [address];[place] | | | | | | [address] | | | | + + + [...] EXTERNAL | | | | performed at [facility];888 | mmol/L | LAB | | | | [address];[place], [place] | | | | | | [address] | | | | + + + [...] | | | | | performed at [facility];[address] | | | | | | [address];[place], [place] | | | | | | [address] | | | | + + + + + + + + | Specimen | + + | | + + + +---------+ + + | Performing | Address | City/State/Zipcode | Phone Number | | Organization | | | | + +---------+ + + | EXTERNAL LAB | | | | + +---------+ + + POC GINNY CG8 Arterial (04/22/2014 2:43 PM PST) + + + + + + | Component | Value | Ref Range | Performed | Pathologist | | | | | At | Signature | + + + + + + | FiO2, POC | 35Comment: Testing | % | EXTERNAL | | | | performed at [facility] [place] [facility];[address] | | LAB | | | | [address];[place] | | | | | | [address] | | | | + + + + + + | PH ART | 7.358Comment: Testing | 7.350 - 7.450 | EXTERNAL | | | | performed at [facility];[address] | | LAB | | | | [address];[place] | | | | | | [address] | | | | + + + + + + | PCO2 ART | 37Comment: Testing | 35 - 45 mmHg | EXTERNAL | | | | performed at [facility] [place] [facility];[address] | | LAB | | | | [address];[place] | | | | | | [address] | | | | + + + + + + | PO2 ART | 84Comment: Testing | 80 - 105 mmHg | EXTERNAL | | | | performed at [facility];[address] | | LAB | | | | [address];[place] | | | | | | [address] | | | | + + + + + + | HCO3 ART | 21 (L)Comment: Testing | 22 - 26 mmol/L | EXTERNAL | | | | performed at [facility] [place];[address] | | LAB | | | | [address];[place] | | | | | | [address] | | | | + + + + + + | POC | 22 (L)Comment: Testing | 23 - 27 mEq/L | EXTERNAL | | | APPEARANCE | performed at [facility] [place];888 | | LAB | | | UA | [address];[place] | | | | | | [address] | | | | + + + + + + | Base | 5 (H)Comment: Testing | 0.0 - 2.0 | EXTERNAL | | | deficit | performed at [facility] [place];888 | mmol/L | LAB | | | | [address];[place] | | | | | | [address] | | | | + + + + + + | O2 SAT ART | 96Comment: Testing | 95 - 98 % | EXTERNAL | | | | performed at [facility] [place] [facility];[address] | | LAB | | | | [address];[place] | | | | | | [address] | | | | + + + + + + | Sodium, POC | 150 (H)Comment: Testing | 135 - 145 mEq/L | EXTERNAL | | | | performed at [facility] [place];[address] | | LAB | | | | [address];[place] | | | | | | [address] | | | | + + + + + + | Potassium, | 3.7Comment: Testing | 3.5 - 5.0 mEq/L | EXTERNAL | | | POC | performed at [facility] [place] [facility];[address] | | LAB | | | | [address];[place] | | | | | | [address] | | | | + + + + + + | Ionized | 1.01 (L)Comment: Testing | 1.12 - 1.32 | EXTERNAL | | | Calcium, | performed at [facility] [place];888 | mmol/L | LAB | | | POC | [address] [address];[place] | | | | | | [address] | | | | + + + + + + | Glucose, | 195 (H)Comment: Testing | 65 - 99 mg/dL | EXTERNAL | | | POC | performed at [facility];[address] | | LAB | | | | [address];[place] | | | | | | [address] | | | | + + + + + + | Hematocrit, | 23 (LL)Comment: Testing | 35.0 - 46.0 % | EXTERNAL | | | POC | performed at [facility];[address] | | LAB | | | | [address];[place] | | | | | | [address] | | | | + + + + + + | Hemoglobin, | 7.8 (LL)Comment: Testing | 11.6 - 15.5 | EXTERNAL | | | POC | performed at [facility];888 | g/dL | LAB | | | | [address];[place], [place] | | | | | | [address] | | | | + + + + + + | Comment, | Tidal Volume = | | EXTERNAL | | | POC | 16Comment: Peep = 8Resp | | LAB | | | | Rate = 46Testing | | | | | | performed at [facility];[address] | | | | | | [address];[place] | | | | | | [address] | | | | + + + [...] | | | Patient | performed at [facility];888 | | LAB | | | | [address];[place] | | | | | | [address] | | | | + + + [...] | | | | | performed at [facility];[address] | | | | | | [facility];[place], [place] | | | | | | [address] | | | | + + + [...] EXTERNAL | | | | performed at [facility];[address] | | LAB | | | | [address];[place] | | | | | | [address] | | | | + + + [...] ON | | | | | | [id number] performed | | | | | | at [facility];[address];[place] [address] | | | | + + + + + + | RED CELL | 2.99 (L)Comment: Testing | 3.70 - 5.10 | EXTERNAL | | | COUNT | performed at [facility];888 | M/uL | LAB | | | | [address];[place] | | | | | | [address] | | | | + + + + + + | Hgb | 8.3 (L)Comment: Testing | 11.3 - 15.5 | EXTERNAL | | | | performed at [facility];888 | g/dL | LAB | | | | [address];[place] | | | | | | [address] | | | | + + + + + + | Hematocrit, | 26.5 (L)Comment: Testing | 34.0 - 46.0 % | EXTERNAL | | | POC | performed at [facility];[address] | | LAB | | | | [address];[place] | | | | | | [address] | | | | + + + + + + | MCV | 88.6Comment: Testing | 80.0 - 100.0 fl | EXTERNAL | | | | performed at [facility];888 | | LAB | | | | [address];[place] | | | | | | [address] | | | | + + + + + + | MCH | 27.8Comment: Testing | 27.0 - 34.0 pg | EXTERNAL | | | | performed at [facility];[address] | | LAB | | | | [address];[place] | | | | | | [address] | | | | + + + + + + | MCHC | 31.4 (L)Comment: Testing | 32.0 - 35.5 | EXTERNAL | | | | performed at [facility];888 | g/dL | LAB | | | | [address];[place] | | | | | | [address] | | | | + + + + + + | RDW-CV | 47.3Comment: Testing | 37 - 53 fl | EXTERNAL | | | | performed at [facility];[address] | | LAB | | | | [address];[place] | | | | | | [address] | | | | + + + + + + | Platelet | 78 (L)Comment: Testing | 150 - 400 K/uL | EXTERNAL | | | Count | performed at [facility];[address] | | LAB | | | Plasma | [address];[place] | | | | | | [address] | | | | + + + + + + | MPV | 8.7Comment: Testing | fl | EXTERNAL | | | | performed at [facility];[address] | | LAB | | | | [address];[place] | | | | | | [address] | | | | + + + + + + | Differentia | MANUALComment: Testing | | EXTERNAL | | | l Type | performed at [facility];[address] | | LAB | | | | [address];[place] | | | | | | [address] | | | | + + + + + + | Nucleated | 2 (H)Comment: Testing | /100WBC | EXTERNAL | | | Red Blood | performed at [facility];[address] | | LAB | | | Cells | [address];[place] | | | | | | [address] | | | | + + + + + + | Segmented | 76Comment: Testing | % | EXTERNAL | | | Neutrophils | performed at [facility];[address] | | LAB | | | Manual | [address];[place] | | | | | | [address] | | | | + + + + + + | % Bands | 9Comment: Testing | % | EXTERNAL | | | | performed at [facility];[address] | | LAB | | | | [address];[place] | | | | | | [address] | | | | + + + + + + | % | 3Comment: Testing | % | EXTERNAL | | | Metamyelocy | performed at [facility];[address] | | LAB | | | petros | [address];[place] | | | | | | [address] | | | | + + + + + + | % | 1Comment: Testing | % | EXTERNAL | | | Myelocytes | performed at [facility];[address] | | LAB | | | | [address];[place] | | | | | | [address] | | | | + + + + + + | Lymphocytes | 2Comment: Testing | % | EXTERNAL | | | Manual | performed at [facility];[address] | | LAB | | | | [address];[place] | | | | | | [address] | | | | + + + + + + | Monocytes | 9Comment: Testing | % | EXTERNAL | | | Manual | performed at [facility];[address] | | LAB | | | | [address];[place] | | | | | | [address] | | | | + + + + + + | Absolute | 26.7 (H)Comment: Testing | 1.9 - 7.4 K/uL | EXTERNAL | | | Neutrophils | performed at [facility];888 | | LAB | | | | [address];[place] | | | | | | [address] | | | | + + + + + + | Bands | 3.2 (H)Comment: Testing | 0 - 0.2 K/uL | EXTERNAL | | | Manual | performed at [facility];888 | | LAB | | | | [address];[place] | | | | | | [address] | | | | + + + + + + | Absolute | 1.1 (H)Comment: Testing | K/uL | EXTERNAL | | | Metamyelocy | performed at [facility];888 | | LAB | | | petros | [address];[place] | | | | | | [address] | | | | + + + + + + | Absolute | 0.4 (H)Comment: Testing | K/uL | EXTERNAL | | | Myelocytes | performed at [facility];[address] | | LAB | | | | [address];[place] | | | | | | [address] | | | | + + + + + + | Absolute | 0.7 (L)Comment: Testing | 1.0 - 3.9 K/uL | EXTERNAL | | | Lymphocytes | performed at [facility];888 | | LAB | | | | [address];[place] | | | | | | [address] | | | | + + + + + + | Absolute | 3.2 (H)Comment: Testing | 0 - 0.8 K/uL | EXTERNAL | | | Monocytes | performed at [facility];[address] | | LAB | | | | [address];[place] | | | | | | [address] | | | | + + + + + + | Platelet | DECREASEDComment: | | EXTERNAL | | | Estimate | Testing performed at | | LAB | | | | [facility];[address];[place] [address] | | | | + + + + + + | RBC | 1+Comment: GIANT | | EXTERNAL | | | Morphology | PLATELETS1+POLY1+HYPO1+A | | LAB | | | | NISOTesting performed at | | | | | | [facility];[address];[place] [address] | | | | | |1+ | | | | | |HYPO | | | | | |1+ | | | | | |ANISO | | | | | |Testing performed at [facility];[address] [facility];[place] [address] | | | | | | | | | | + + + + + + | Differentia | SLIDE REFERRED TO | | EXTERNAL | | | l Comments | PATHOLOGIST FOR REVIEW | | LAB | | | | AND COMMENTComment: | | | | | | Testing performed at | | | | | | [facility];[address] [facility] | | | | | | [place] [address] | | | | + + + [...] EXTERNAL | | | | performed at [facility];888 | mmol/L | LAB | | | | [address];[place] | | | | | | [address] | | | | + + + + + + | K | 3.9Comment: Testing | 3.5 - 4.9 | EXTERNAL | | | | performed at [facility];888 | mmol/L | LAB | | | | [address];[place] | | | | | | [address] | | | | + + + + + + | Cl | 114 (H)Comment: Testing | 99 - 109 mmol/L | EXTERNAL | | | | performed at [facility];[address] | | LAB | | | | [address];[place] | | | | | | [address] | | | | + + + + + + | CO2 | 21 (L)Comment: Testing | 23 - 32 mmol/L | EXTERNAL | | | | performed at [facility];[address] | | LAB | | | | [address];[place] | | | | | | [address] | | | | + + + + + + | Anion Gap | 23 (H)Comment: Testing | 5 - 20 mmol/L | EXTERNAL | | | | performed at [facility];[address] | | LAB | | | | [address];[place] | | | | | | [address] | | | | + + + + + + | Glucose, | 192 (H)Comment: Testing | 65 - 99 mg/dL | EXTERNAL | | | Fasting | performed at [facility];[address] | | LAB | | | | [address];[place] | | | | | | [address] | | | | + + + + + + | BUN | 34 (H)Comment: Testing | 8 - 25 mg/dL | EXTERNAL | | | | performed at [facility];[address] | | LAB | | | | [address];[place] | | | | | | [address] | | | | + + + + + + | Creatinine | 1.47 (H)Comment: Testing | 0.50 - 1.00 | EXTERNAL | | | | performed at [facility];888 | mg/dL | LAB | | | | [address];[place] | | | | | | [address] | | | | + + + + + + | BUN/Creatin | 23Comment: Testing | | EXTERNAL | | | ine Ratio | performed at [facility];[address] | | LAB | | | | [address] [place];[place] | | | | | | [address] | | | | + + + + + + | Calcium | 6.7 (L)Comment: Testing | 8.5 - 10.2 | EXTERNAL | | | | performed at [facility];888 | mg/dL | LAB | | | | [address];[place] | | | | | | [address] | | | | + + + [...] | | | | | | at [facility];[address];[place] [address] | | | | + + + [...] EXTERNAL | | | | performed at [facility];888 | mmol/L | LAB | | | | [address];[place], [place] | | | | | | [address] | | | | + + + [...] | | | Fingerstick | performed at [facility] | | LAB | | | | [address];[place] | | | | | | [address] | | | | + + + [...] Rad Conversion - 11/24/2018 6:38 AM PDT History: [...] | | | | + + POC SOCO GROSS8, Arterial (04/22/2014 1:41 PM PST) + + + + + + | Component | Value | Ref Range | Performed | Pathologist | | | | | At | Signature | + + + + + + | FiO2, POC | 40Comment: Testing | % | EXTERNAL | | | | performed at [facility];[address] | | LAB | | | | [address] [facility];[place], [place] | | | | | | [address] | | | | + + + + + + | PH ART | 7.140 ()Comment: | 7.350 - 7.450 | EXTERNAL | | | | Testing performed at | | LAB | | | | [facility];[address];[place] [address] | | | | + + + + + + | PCO2 ART | 38Comment: Testing | 35 - 45 mmHg | EXTERNAL | | | | performed at [facility];[address] | | LAB | | | | [address];[place] | | | | | | [address] | | | | + + + + + + | PO2 ART | 104Comment: Testing | 80 - 105 mmHg | EXTERNAL | | | | performed at [facility];[address] | | LAB | | | | [address];[place] | | | | | | [address] | | | | + + + + + + | HCO3 ART | 13 (L)Comment: Testing | 22 - 26 mmol/L | EXTERNAL | | | | performed at [facility];[address] | | LAB | | | | [address];[place] | | | | | | [address] | | | | + + + + + + | POC | 14 (L)Comment: Testing | 23 - 27 mEq/L | EXTERNAL | | | APPEARANCE | performed at [facility];[address] | | LAB | | | UA | [address];[place] | | | | | | [address] | | | | + + + + + + | Base | 16 (H)Comment: Testing | 0.0 - 2.0 | EXTERNAL | | | deficit | performed at [facility];888 | mmol/L | LAB | | | | [address];[place] | | | | | | [address] | | | | + + + + + + | O2 SAT ART | 96Comment: Testing | 95 - 98 % | EXTERNAL | | | | performed at [facility];[address] | | LAB | | | | [address];[place] | | | | | | [address] | | | | + + + + + + | Sodium, POC | 146 (H)Comment: Testing | 135 - 145 mEq/L | EXTERNAL | | | | performed at [facility];[address] | | LAB | | | | [address];[place] | | | | | | [address] | | | | + + + + + + | Potassium, | 5.0Comment: Testing | 3.5 - 5.0 mEq/L | EXTERNAL | | | POC | performed at [facility];[address] | | LAB | | | | [address];[place] | | | | | | [address] | | | | + + + + + + | Ionized | 1.15Comment: Testing | 1.12 - 1.32 | EXTERNAL | | | Calcium, | performed at [facility];888 | mmol/L | LAB | | | POC | [address];[place] | | | | | | [address] | | | | + + + + + + | Glucose, | 265 (H)Comment: Testing | 65 - 99 mg/dL | EXTERNAL | | | POC | performed at [facility];[address] | | LAB | | | | [address];[place] | | | | | | [address] | | | | + + + + + + | Hematocrit, | <10 (LL)Comment: Testing | 35.0 - 46.0 % | EXTERNAL | | | POC | performed at [facility];[address] | | LAB | | | | [address];[place] | | | | | | [address] | | | | + + + + + + | Comment, | Tidal Volume = | | EXTERNAL | | | POC | 16Comment: Peep = 8Resp | | LAB | | | | Rate = 46Testing | | | | | | performed at [facility];[address] | | | | | | [address];[place] | | | | | | [address] | | | | + + + [...] | | | Fingerstick | performed at [facility];[address] | | LAB | | | | [address];[place] | | | | | | [address] | | | | + + + [...] | | | Fingerstick | performed at [facility];[address] | | LAB | | | | [address];[place], [place] | | | | | | [address] | | | | + + [...] EXTERNAL | | | | performed at [facility];[address] | | LAB | | | | [address];[place] | | | | | | [address] | | | | + + + [...] EXTERNAL | | | | performed at [facility];[address] | | LAB | | | | [address];[place], [place] | | | | | | [address] | | | | + + + [...] | | | | | | at [facility];[address] [place] [address] | | | | | | [facility];[place] [address] | | | | + + + [...] | | | Patient | performed at [facility];[address] | | LAB | | | | [address];[place] | | | | | | [address] | | | | + + + [...] | | | | | performed at [facility] | | | | | | [address];[place], [place] | | | | | | [address] | | | | + + + [...] EXTERNAL | | | | performed at [facility];[address] | | LAB | | | | [address];[place] | | | | | | [address] | | | | + + + + + + | RED CELL | 3.56 (L)Comment: Testing | 3.70 - 5.10 | EXTERNAL | | | COUNT | performed at [facility];888 | M/uL | LAB | | | | [address];[place] | | | | | | [address] | | | | + + + + + + | Hgb | 8.7 (L)Comment: Testing | 11.3 - 15.5 | EXTERNAL | | | | performed at [facility];888 | g/dL | LAB | | | | [address];[place] | | | | | | [address] | | | | + + + + + + | Hematocrit, | 29.0 (L)Comment: Testing | 34.0 - 46.0 % | EXTERNAL | | | POC | performed at [facility];888 | | LAB | | | | [address];[place] | | | | | | [address] | | | | + + + + + + | MCV | 81.3Comment: Testing | 80.0 - 100.0 fl | EXTERNAL | | | | performed at [facility];888 | | LAB | | | | [address];[place] | | | | | | [address] | | | | + + + + + + | MCH | 24.4 (L)Comment: Testing | 27.0 - 34.0 pg | EXTERNAL | | | | performed at [facility];[address] | | LAB | | | | [address];[place] | | | | | | [address] | | | | + + + + + + | MCHC | 30.0 (L)Comment: Testing | 32.0 - 35.5 | EXTERNAL | | | | performed at [facility];888 | g/dL | LAB | | | | [address];[place] | | | | | | [address] | | | | + + + + + + | RDW-CV | 63.9 (H)Comment: Testing | 37 - 53 fl | EXTERNAL | | | | performed at [facility];[address] | | LAB | | | | [address];[place] | | | | | | [address] | | | | + + + + + + | Platelet | 330Comment: Testing | 150 - 400 K/uL | EXTERNAL | | | Count | performed at [facility];[address] | | LAB | | | Plasma | [address];[place] | | | | | | [address] | | | | + + + + + + | MPV | 8.6Comment: Testing | fl | EXTERNAL | | | | performed at [facility];[address] | | LAB | | | | [address];[place] | | | | | | [address] | | | | + + + + + + | Differentia | MANUALComment: Testing | | EXTERNAL | | | l Type | performed at [facility];[address] | | LAB | | | | [address];[place] | | | | | | [address] | | | | + + + + + + | Segmented | 77Comment: Testing | % | EXTERNAL | | | Neutrophils | performed at [facility];[address] | | LAB | | | Manual | [address];[place] | | | | | | [address] | | | | + + + + + + | % Bands | 4Comment: Testing | % | EXTERNAL | | | | performed at [facility];[address] | | LAB | | | | [address];[place] | | | | | | [address] | | | | + + + + + + | % | 3Comment: Testing | % | EXTERNAL | | | Metamyelocy | performed at [facility];[address] | | LAB | | | petros | [address];[place] | | | | | | [address] | | | | + + + + + + | % | 1Comment: Testing | % | EXTERNAL | | | Myelocytes | performed at [facility];[address] | | LAB | | | | [address];[place] | | | | | | [address] | | | | + + + + + + | Lymphocytes | 10Comment: Testing | % | EXTERNAL | | | Manual | performed at [facility];[address] | | LAB | | | | [address];[place] | | | | | | [address] | | | | + + + + + + | Monocytes | 5Comment: Testing | % | EXTERNAL | | | Manual | performed at [facility];[address] | | LAB | | | | [address];[place] | | | | | | [address] | | | | + + + + + + | Absolute | 17.8 (H)Comment: Testing | 1.9 - 7.4 K/uL | EXTERNAL | | | Neutrophils | performed at [facility];[address] | | LAB | | | | [address];[place] | | | | | | [address] | | | | + + + + + + | Bands | 0.9 (H)Comment: Testing | 0 - 0.2 K/uL | EXTERNAL | | | Manual | performed at [facility];[address] | | LAB | | | | [address];[place] | | | | | | [address] | | | | + + + + + + | Absolute | 0.7 (H)Comment: Testing | K/uL | EXTERNAL | | | Metamyelocy | performed at [facility];[address] | | LAB | | | petros | [address];[place] | | | | | | [address] | | | | + + + + + + | Absolute | 0.2 (H)Comment: Testing | K/uL | EXTERNAL | | | Myelocytes | performed at [facility];[address] | | LAB | | | | [address];[place] | | | | | | [address] | | | | + + + + + + | Absolute | 2.3Comment: Testing | 1.0 - 3.9 K/uL | EXTERNAL | | | Lymphocytes | performed at [facility];[address] | | LAB | | | | [address];[place] | | | | | | [address] | | | | + + + + + + | Absolute | 1.2 (H)Comment: Testing | 0 - 0.8 K/uL | EXTERNAL | | | Monocytes | performed at [facility];[address] | | LAB | | | | [facility];[place] | | | | | | [address] | | | | + + + + + + | RBC | 2+Comment: | | EXTERNAL | | | Morphology | HYPO3+ANISO1+POIK1+TARGE | | LAB | | | | TNORMAL PLT MORPHTesting | | | | | | performed at [facility];[address] | | | | | | [facility] | | | | | | [address] | | | | | |POIK | | | | | |1+ | | | | | |TARGET | | | | | |NORMAL PLT MORPH | | | | | |Testing performed at [facility];[address] [facility];[place] [address] | | | | | | | [...] [address], | | | | | | [place] [address] | | | | + + + [...] performed at [facility], [address] | | LAB | | | | [address], | | | | | | [place] [address] | | | | + + + [...] EXTERNAL | | | | performed at [facility];[address] | | LAB | | | | [address];[place], [place] | | | | | | [address] | | | | + + + [...] | LAB | | | | [address], | | | | | | [place] [address] | | | | + + + [...] | | | | | [place] [address] | | | | + + + + + + | Albumin | 2.4 (L)Comment: Testing | 3.6 - 5.0 g/dL | EXTERNAL | | | | performed at [facility], [address] | | LAB | | | | [address], | | | | | | [place] [address] | | | | + + + + + + | Bilirubin | 0.5Comment: Testing | 0.1 - 1.5 mg/dL | EXTERNAL | | | Total | performed at [facility], [address] | | LAB | | | | [address], | | | | | | [place] [address] | | | | + + + + + + | Bilirubin | 0.1Comment: Testing | 0.0 - 0.3 mg/dL | EXTERNAL | | | Direct | performed at [facility], [address] | | LAB | | | | [address], | | | | | | [place] [address] | | | | + + + + + + | ALP, | 131 (H)Comment: Testing | 35 - 115 U/L | EXTERNAL | | | External | performed at [facility], [address] | | LAB | | | | [address], | | | | | | [place] [address] | | | | + + + + + + | AST | 20Comment: Testing | 10 - 45 U/L | EXTERNAL | | | | performed at [facility], [address] | | LAB | | | | [address], | | | | | | [place] [address] | | | | + + + + + + | ALT | 11Comment: Testing | 10 - 65 U/L | EXTERNAL | | | | performed at [facility], [address] | | LAB | | | | [address], | | | | | | [place] [address] | | | | + + + [...] | | | | | [place] [address] | | | | + + + + + + | Triglycerid | 151 (H)Comment: Testing | mg/dL | EXTERNAL | | | es | performed at [facility], [address] | | LAB | | | | [address], | | | | | | [place] [address] | | | | + + + + + + | HDL | 58Comment: Testing | mg/dL | EXTERNAL | | | | performed at [facility], [address] | | LAB | | | | [address], | | | | | | [place] [address] | | | | + + + + + + | LDL | 125 (H)Comment: Testing | mg/dL | EXTERNAL | | | Cholesterol | performed at [facility], [address] | | LAB | | | , | [address], | | | | | Calculated, | [place] [address] | | | | | External | | | | | + + [...] | | | | | [place] [address] | | | | + + + + + + | K | 4.0Comment: Testing | 3.5 - 4.9 | EXTERNAL | | | | performed at [facility], [address] | mmol/L | LAB | | | | [address], | | | | | | [place] [address] | | | | + + + + + + | Cl | 107Comment: Testing | 99 - 109 mmol/L | EXTERNAL | | | | performed at [facility], [address] | | LAB | | | | [address], | | | | | | [place] [address] | | | | + + + + + + | CO2 | 29Comment: Testing | 23 - 32 mmol/L | EXTERNAL | | | | performed at [facility], [address] | | LAB | | | | [address], | | | | | | [place] [address] | | | | + + + + + + | Anion Gap | 13Comment: Testing | 5 - 20 mmol/L | EXTERNAL | | | | performed at [facility], [address] | | LAB | | | | [address], | | | | | | [place] [address] | | | | + + + + + + | Glucose, | 123 (H)Comment: Testing | 65 - 99 mg/dL | EXTERNAL | | | Fasting | performed at [facility], [address] | | LAB | | | | [address], | | | | | | [place] [address] | | | | + + + + + + | BUN | 30 (H)Comment: Testing | 8 - 25 mg/dL | EXTERNAL | | | | performed at [facility], [address] | | LAB | | | | [address], | | | | | | [place] [address] | | | | + + + + + + | Creatinine | 0.64Comment: Testing | 0.50 - 1.00 | EXTERNAL | | | | performed at [facility], [address] | mg/dL | LAB | | | | [address], | | | | | | [place] [address] | | | | + + + + + + | BUN/Creatin | 47Comment: Testing | | EXTERNAL | | | ine Ratio | performed at [facility], [address] | | LAB | | | | [address], | | | | | | [place] [address] | | | | + + + + + + | Calcium | 8.8Comment: Testing | 8.5 - 10.2 | EXTERNAL | | | | performed at [facility], [address] | mg/dL | LAB | | | | [address], | | | | | | [place] [address] | | | | + + + [...] | at [facility], [address] | | | | | | [address], | | | | | | [place] [address] | | | | + + + [...] AC | | | Testing performed at [facility];[address] | | | [facility];[place] [address] CULTURE | | | NO GROWTH | | | Testing performed at [facility], [address] [facility], [place], [place] | | | [address] | | + + + + +---------+ [...] AC | | | Testing performed at [facility];[address] | | | [address] [facility];[place] [address] CULTURE | | | NO GROWTH | | | Testing performed at [facility], [address], [place] | | | [address] | | + + + + +---------+ [...] EXTERNAL | | | | performed at [facility];888 | mmol/L | LAB | | | | Torsten Zamora;[place], [place] | | | | | | [address] | | | | + + + [...] | | | Fingerstick | performed at [facility];888 | | LAB | | | | Torsten Loerdo;[place] | | | | | | [address] | | | | + + + [...] EXTERNAL | | | | performed at [facility];888 | | LAB | | | | [address]sten Lored[address];[place] | | | | | | [address] | | | | + + + + + + | RED CELL | 3.11 (L)Comment: Testing | 3.70 - 5.10 | EXTERNAL | | | COUNT | performed at [facility];888 | M/uL | LAB | | | | Torsten Lored[address];[place] | | | | | | [address] | | | | + + + + + + | Hgb | 7.6 (L)Comment: Testing | 11.3 - 15.5 | EXTERNAL | | | | performed at [facility];888 | g/dL | LAB | | | | [address];[place] | | | | | | [address] | | | | + + + + + + | Hematocrit, | 25.7 (L)Comment: Testing | 34.0 - 46.0 % | EXTERNAL | | | POC | performed at [facility];888 | | LAB | | | | [address];[place] | | | | | | [address] | | | | + + + + + + | MCV | 82.8Comment: Testing | 80.0 - 100.0 fl | EXTERNAL | | | | performed at [facility];888 | | LAB | | | | [address];[place] | | | | | | [address] | | | | + + + + + + | MCH | 24.6 (L)Comment: Testing | 27.0 - 34.0 pg | EXTERNAL | | | | performed at [facility];888 | | LAB | | | | [address];[place] | | | | | | [address] | | | | + + + + + + | MCHC | 29.7 (L)Comment: Testing | 32.0 - 35.5 | EXTERNAL | | | | performed at [facility];888 | g/dL | LAB | | | | [address];[place] | | | | | | [address] | | | | + + + + + + | RDW-CV | 66.5 (H)Comment: Testing | 37 - 53 fl | EXTERNAL | | | | performed at [facility];888 | | LAB | | | | [address];[place] | | | | | | [address] | | | | + + + + + + | Platelet | 318Comment: Testing | 150 - 400 K/uL | EXTERNAL | | | Count | performed at [facility];888 | | LAB | | | Plasma | [address];[place] | | | | | | [address] | | | | + + + + + + | MPV | 9.1Comment: Testing | fl | EXTERNAL | | | | performed at [facility];888 | | LAB | | | | [address];[place] | | | | | | [address] | | | | + + + + + + | Differentia | MANUALComment: Testing | | EXTERNAL | | | l Type | performed at [facility];888 | | LAB | | | | [address];[place] | | | | | | [address] | | | | + + + + + + | Nucleated | 1 (H)Comment: Testing | /100WBC | EXTERNAL | | | Red Blood | performed at [facility];888 | | LAB | | | Cells | [address];[place] | | | | | | [address] | | | | + + + + + + | Segmented | 70Comment: Testing | % | EXTERNAL | | | Neutrophils | performed at [facility];888 | | LAB | | | Manual | [address];[place] | | | | | | [address] | | | | + + + + + + | % Bands | 4Comment: Testing | % | EXTERNAL | | | | performed at [facility];[address] | | LAB | | | | [address];[place] | | | | | | [address] | | | | + + + + + + | % | 2Comment: Testing | % | EXTERNAL | | | Metamyelocy | performed at [facility];888 | | LAB | | | petros | [address];[place] | | | | | | [address] | | | | + + + + + + | % | 1Comment: Testing | % | EXTERNAL | | | Myelocytes | performed at [facility];888 | | LAB | | | | [address];[place] | | | | | | [address] | | | | + + + + + + | Lymphocytes | 14Comment: Testing | % | EXTERNAL | | | Manual | performed at [facility];888 | | LAB | | | | [address];[place] | | | | | | [address] | | | | + + + + + + | Monocytes | 9Comment: Testing | % | EXTERNAL | | | Manual | performed at [facility];888 | | LAB | | | | [address];[place] | | | | | | [address] | | | | + + + + + + | Absolute | 15.0 (H)Comment: Testing | 1.9 - 7.4 K/uL | EXTERNAL | | | Neutrophils | performed at [facility];888 | | LAB | | | | [address];[place] | | | | | | [address] | | | | + + + + + + | Bands | 0.9 (H)Comment: Testing | 0 - 0.2 K/uL | EXTERNAL | | | Manual | performed at [facility];888 | | LAB | | | | [address];[place] | | | | | | [address] | | | | + + + + + + | Absolute | 0.4 (H)Comment: Testing | K/uL | EXTERNAL | | | Metamyelocy | performed at [facility];888 | | LAB | | | petros | [address];[place] | | | | | | [address] | | | | + + + + + + | Absolute | 0.2 (H)Comment: Testing | K/uL | EXTERNAL | | | Myelocytes | performed at [facility];888 | | LAB | | | | [address];[place] | | | | | | [address] | | | | + + + + + + | Absolute | 3.0Comment: Testing | 1.0 - 3.9 K/uL | EXTERNAL | | | Lymphocytes | performed at [facility];888 | | LAB | | | | [address];[place] | | | | | | [address] | | | | + + + + + + | Absolute | 1.9 (H)Comment: Testing | 0 - 0.8 K/uL | EXTERNAL | | | Monocytes | performed at [facility];888 | | LAB | | | | [address];[place] | | | | | | [address] | | | | + + + + + + | Platelet | ADEQUATEComment: Testing | | EXTERNAL | | | Estimate | performed at [facility];888 | | LAB | | | | [address];[place] | | | | | | [address] | | | | + + + + + + | RBC | 3+Comment: | | EXTERNAL | | | Morphology | ANISO1+HYPO1+TARGETNORMA | | LAB | | | | L PLT MORPHTesting | | | | | | performed at [facility];[address] | | | | | | [address];[place], [place] | | | | | | [address] | | | | | |TARGET | | | | | |NORMAL PLT MORPH | | | | | |Testing performed at [facility];[address];[place] [address] | | | | | | | [...] EXTERNAL | | | | performed at [facility];888 | | LAB | | | | [address];[place] | | | | | | [address] | | | | + + + [...] EXTERNAL | | | | performed at [facility];888 | | LAB | | | | [address];[place], [place] | | | | | | [address] | | | | + + + [...] EXTERNAL | | | | performed at [facility];888 | mmol/L | LAB | | | | [address];[place] | | | | | | [address] | | | | + + + + + + | K | 4.2Comment: Testing | 3.5 - 4.9 | EXTERNAL | | | | performed at [facility];888 | mmol/L | LAB | | | | [address];[place] | | | | | | [address] | | | | + + + + + + | Cl | 110 (H)Comment: Testing | 99 - 109 mmol/L | EXTERNAL | | | | performed at [facility];[address] | | LAB | | | | [address];[place] | | | | | | [address] | | | | + + + + + + | CO2 | 35 (H)Comment: Testing | 23 - 32 mmol/L | EXTERNAL | | | | performed at [facility];888 | | LAB | | | | [address];[place] | | | | | | [address] | | | | + + + + + + | Anion Gap | 8Comment: Testing | 5 - 20 mmol/L | EXTERNAL | | | | performed at [facility];[address] | | LAB | | | | [address];[place] | | | | | | [address] | | | | + + + + + + | Glucose, | 120 (H)Comment: Testing | 65 - 99 mg/dL | EXTERNAL | | | Fasting | performed at [facility];[address] | | LAB | | | | [address];[place] | | | | | | [address] | | | | + + + + + + | BUN | 30 (H)Comment: Testing | 8 - 25 mg/dL | EXTERNAL | | | | performed at [facility];[address] | | LAB | | | | [address];[place] | | | | | | [address] | | | | + + + + + + | Creatinine | 0.87Comment: Testing | 0.50 - 1.00 | EXTERNAL | | | | performed at [facility];888 | mg/dL | LAB | | | | [address];[place] | | | | | | [address] | | | | + + + + + + | BUN/Creatin | 35Comment: Testing | | EXTERNAL | | | ine Ratio | performed at [facility];[address] | | LAB | | | | [address];[place] | | | | | | [address] | | | | + + + + + + | Calcium | 8.0 (L)Comment: Testing | 8.5 - 10.2 | EXTERNAL | | | | performed at [facility];888 | mg/dL | LAB | | | | [address];[place] | | | | | | [address] | | | | + + + [...] | | | | | | at [facility];[address] [facility] | | | | | | Blvd;[place] [address] | | | | + + + [...] EXTERNAL | | | | performed at [facility];888 | mmol/L | LAB | | | | [address];[place] | | | | | | [address] | | | | + + + [...] | | | Random | performed at [facility] | | LAB | | | | [address];[place], [place] | | | | | | [address] | | | | + + + [...] | | | Fingerstick | performed at [facility];[address] | | LAB | | | | [address];[place], [place] | | | | | | [address] | | | | + + + [...] | | | Patient | performed at [facility];888 | | LAB | | | | [address];[place], [place] | | | | | | [address] | | | | + + + [...] | | | Fingerstick | performed at [facility];[address] | | LAB | | | | [address];[place] | | | | | | [address] | | | | + + + [...] Tez Roper Conversion - 11/24/2018 6:38 AM AMARI [id number] yearsXR CHEST 1 | | VIEW04/21/2014 5:52 [...] | | | | | performed at [facility];888 | | | | | | [facility];[place], [place] | | | | | | [address] | | | | + + + [...] performed at [facility], [address] | | LAB | | | | [address], | | | | | | [place] [address] | | | | + + +---- + + + | RED CELL | 3.26 (L)Comment: Testing | 3.7 0 - 5.10 | EXTERNAL | | | COUNT | performed at [facility], [address] | M/u L | LAB | | | | [address], | | | | | | [place] [address] | | | | + + +---- + + + | Hgb | 8.2 (L)Comment: Testing | 11. 3 - 15.5 | EXTERNAL | | | | performed at [facility], [address] | g/d L | LAB | | | | [address], | | | | | | [place] [address] | | | | + + +---- + + + | Hematocrit, | 27.1 (L)Comment: Testing | 34. 0 - 46.0 % | EXTERNAL | | | POC | performed at [facility], [address] | | LAB | | | | [address], | | | | | | [place] [address] | | | | + + +---- + + + | MCV | 83.1Comment: Testing | 80. 0 - 100.0 fl | EXTERNAL | | | | performed at [facility], [address] | | LAB | | | | [address], | | | | | | [place] [address] | | | | + + +---- + + + | MCH | 25.0 (L)Comment: Testing | 27. 0 - 34.0 pg | EXTERNAL | | | | performed at [facility], [address] | | LAB | | | | [address], | | | | | | [place] [address] | | | | + + +---- + + + | MCHC | 30.1 (L)Comment: Testing | 32. 0 - 35.5 | EXTERNAL | | | | performed at [facility], [address] | g/d L | LAB | | | | [address], | | | | | | [place] [address] | | | | + + +---- + + + | RDW-CV | 67.4 (H)Comment: Testing | 37 - 53 fl | EXTERNAL | | | | performed at [facility], [address] | | LAB | | | | [address], | | | | | | [place] [address] | | | | + + +---- + + + | Platelet | 340Comment: Testing | 150 - 400 K/uL | EXTERNAL | | | Count | performed at [facility], [address] | | LAB | | | Plasma | [address], | | | | | | [place] [address] | | | | + + +---- + + + | MPV | 9.2Comment: Testing | fl | EXTERNAL | | | | performed at [facility], [address] | | LAB | | | | [address], | | | | | | [place] [address] | | | | + + +---- + + + | Differentia | MANUALComment: Testing | | EXTERNAL | | | l Type | performed at [facility], [address] | | LAB | | | | [address], | | | | | | [place] [address] | | | | + + +---- + + + | Nucleated | 1 (H)Comment: Testing | /10 0WBC | EXTERNAL | | | Red Blood | performed at [facility], [address] | | LAB | | | Cells | [address], | | | | | | [place] [address] | | | | + + +---- + + + | Segmented | 80Comment: Testing | % | EXTERNAL | | | Neutrophils | performed at [facility], [address] | | LAB | | | Manual | [address], | | | | | | [place] [address] | | | | + + +---- + + + | % | 2Comment: Testing | % | EXTERNAL | | | Metamyelocy | performed at [facility], [address] | | LAB | | | petros | [address], | | | | | | [place] [address] | | | | + + +---- + + + | % | 1Comment: Testing | % | EXTERNAL | | | Myelocytes | performed at [facility], [address] | | LAB | | | | [address], | | | | | | [place] [address] | | | | + + +---- + + + | Lymphocytes | 7Comment: Testing | % | EXTERNAL | | | Manual | performed at [facility], [address] | | LAB | | | | [address], | | | | | | [place] [address] | | | | + + +---- + + + | Monocytes | 10Comment: Testing | % | EXTERNAL | | | Manual | performed at [facility], [address] | | LAB | | | | [address], | | | | | | [place] [address] | | | | + + +---- + + + | Absolute | 15.4 (H)Comment: Testing | 1.9 - 7.4 K/uL | EXTERNAL | | | Neutrophils | performed at [facility], [address] | | LAB | | | | [address], | | | | | | [place] [address] | | | | + + +---- + + + | Absolute | 0.4 (H)Comment: Testing | K/u L | EXTERNAL | | | Metamyelocy | performed at [facility], [address] | | LAB | | | petros | [address], | | | | | | [place] [address] | | | | + + +---- + + + | Absolute | 0.2 (H)Comment: Testing | K/u L | EXTERNAL | | | Myelocytes | performed at [facility], [address] | | LAB | | | | [address], | | | | | | [place] [address] | | | | + + +---- + + + | Absolute | 1.3Comment: Testing | 1.0 - 3.9 K/uL | EXTERNAL | | | Lymphocytes | performed at [facility], [address] | | LAB | | | | [address], | | | | | | [place] [address] | | | | + + +---- + + + | Absolute | 1.9 (H)Comment: Testing | 0 - 0.8 K/uL | EXTERNAL | | | Monocytes | performed at [facility], [address] | | LAB | | | | [facility], | | | | | | [place] [address] | | | | + + +---- + + + | RBC | 3+Comment: | | EXTERNAL | | | Morphology | ANISO1+TARGETNORMAL PLT | | LAB | | | | MORPHTesting performed | | | | | | at [facility], [address] | | | | | | [facility], | | | | | | [place] [address] | | | | | |Testing performed at [facility], [address] [facility], [place] [address] | | | | | | | [...] performed at [facility], [address] | | LAB | | | | [address], | | | | | | [place] [address] | | | | + + + [...] performed at [facility], [address] | | LAB | | | | [address], | | | | | | [place] [address] | | | | + + + [...] | | | | | [place] [address] | | | | + + + + + + | K | 4.1Comment: Testing | 3.5 - 4.9 | EXTERNAL | | | | performed at [facility], [address] | mmol/L | LAB | | | | [address], | | | | | | [place] [address] | | | | + + + + + + | Cl | 110 (H)Comment: Testing | 99 - 109 mmol/L | EXTERNAL | | | | performed at [facility], [address] | | LAB | | | | [address], | | | | | | [place] [address] | | | | + + + + + + | CO2 | 34 (H)Comment: Testing | 23 - 32 mmol/L | EXTERNAL | | | | performed at [facility], [address] | | LAB | | | | [address], | | | | | | [place] [address] | | | | + + + + + + | Anion Gap | 7Comment: Testing | 5 - 20 mmol/L | EXTERNAL | | | | performed at [facility], [address] | | LAB | | | | [address], | | | | | | [place] [address] | | | | + + + + + + | Glucose, | 133 (H)Comment: Testing | 65 - 99 mg/dL | EXTERNAL | | | Fasting | performed at [facility], [address] | | LAB | | | | [address], | | | | | | [place] [address] | | | | + + + + + + | BUN | 29 (H)Comment: Testing | 8 - 25 mg/dL | EXTERNAL | | | | performed at [facility], [address] | | LAB | | | | [address], | | | | | | [place] [address] | | | | + + + + + + | Creatinine | 0.61Comment: Testing | 0.50 - 1.00 | EXTERNAL | | | | performed at [facility], [address] | mg/dL | LAB | | | | [address], | | | | | | [place] [address] | | | | + + + + + + | BUN/Creatin | 48Comment: Testing | | EXTERNAL | | | ine Ratio | performed at [facility], [address] | | LAB | | | | [address], | | | | | | [place] [address] | | | | + + + + + + | Calcium | 8.3 (L)Comment: Testing | 8.5 - 10.2 | EXTERNAL | | | | performed at [facility], [address] | mg/dL | LAB | | | | [address], | | | | | | [place] [address] | | | | + + + [...] | at [facility], [address] | | | | | | [address], | | | | | | [place] [address] | | | | + + + [...] | | | Patient | performed at [facility];[address] | | LAB | | | | [address];[place], [place] | | | | | | [address] | | | | + + + [...] EXTERNAL | | | | performed at [facility];[address] | mmol/L | LAB | | | | [address];[place], [place] | | | | | | [address] | | | | + + + [...] | | | Fingerstick | performed at [facility];[address] | | LAB | | | | [address];[place], [place] | | | | | | [address] | | | | + + + [...] | | LAB | | | | @2T BY TLSREAD BACK | | | | | | RESULTS VERIFIEDTesting | | | | | | performed at [facility];[address] | | | | | | [address];[place] | | | | | | [address] | | | | + + + [...] + + + | aPTT, | 212 (HH)Comment: RESULTS | 23 - 32 seconds | EXTERNAL | | | Patient | CALLED TO TAYLOR Segundo/ICU | | LAB | | | | @1848T BY TLSREAD BACK | | | | | | RESULTS VERIFIEDTesting | | | | | | performed at [facility];[address] | | | | | | [address];[place] | | | | | | [address] | | | | + + + [...] EXTERNAL | | | | performed at [facility];[address] | mmol/L | LAB | | | | [address];[place] | | | | | | [address] | | | | + + + [...] EXTERNAL | | | | performed at [facility];[address] | | LAB | | | | [address];[place] | | | | | | [address] | | | | + + + [...] | | | Fingerstick | performed at [facility];[address] | | LAB | | | | [address];[place], [place] | | | | | | [address] | | | | + + + [...] EXTERNAL | | | | performed at [facility];[address] | mmol/L | LAB | | | | [address];[place] | | | | | | [address] | | | | + + + [...] EXTERNAL | | | | performed at [facility];[address] | | LAB | | | | [facility], [place] | | | | | | [address] | | | | + + + [...] EXTERNAL | | | | performed at [facility];[address] | | LAB | | | | [address];[place] | | | | | | [address] | | | | + + [...] | | | Fingerstick | performed at [facility];[address] | | LAB | | | | [address];[place] | | | | | | [address] | | | | + + + [...] : 1955 | | | Performing Physician: JOSE KO MD | | | | | [...] | 1.05 D-E Excursion: 1.76 cm E-F [place]: 0.10 m/s EPSS: 0.24 | | | [...] 19.21 cm MCO: 460.20 ms MV A Ed: 0.58 m/s MV | | | DecT: 219.45 ms MV E Ed: 0.67 m/s MV E/A Ratio: 1.14 MV [...] TR Vmax: 1.63 m/s | | | Meeting Planner: CORDELIA Authenticated by: JOSE KO MD Report | | | Date/Time: 04-20-2014 18:02:29 | | + + + + + | Procedure Note | + + | Judson, Rad Conversion - 11/24/2018 6:38 AM PDT Patient Name: Arpita HARTLEY of | | : 1955 Performing Physician: JOSE KO, | | INDICATIONS r | | [...] BPMR-R: 756.65 msLAAs | | A4C: 23.48 [id number] A-L A4C: 64.39 mlLAESV MOD A4C: 63.04 mlLALs A4C: 7.27 cmAo | | Diam: 3.18 cmAV Cusp: 1.94 cmLA Diam: 3.37 cmLA/Ao: 1.05D-E Excursion: 1.76 | | cmE-F [place]: 0.10 m/sEPSS: 0.24 cmHR: 76.38 BPMAV maxP.32 mmHgAV meanPG: | | 3.53 mmHgAV Vmax: 1.25 m/Christine Vmean: 0.89 m/Christine VTI: 20.35 cmAVA Vmax: 2.34 | | cm2AVA (VTI): 2.64 ho1HMEC Dopp: 2.21 l/hayu2PERF Dopp: 4.15 l/minHR: 77.06 | | BPMLVOT maxP.39 mmHgLVOT meanP.25 mmHgLVSI Dopp: 28.69 ml/m2LVSV Dopp: | | 53.93 mlLVOT Vmax: 1.04 m/sLVOT Vmean: 0.69 m/sLVOT VTI: 19.21 cmMCO: 460.20 | | msMV A Ed: 0.58 m/sMV DecT: 219.45 msMV E Ed: 0.67 m/sMV E/A Ratio: 1.14MV | | PHT: 68.75 msMVA By PHT: 3.19 cm2MV A Dur: 103.80 msIVRT: 148.78 msSeptal e': | | 0.06 m/sSeptal E/e': 10.75Lateral e': 0.10 m/sLateral E/e': 6.11HR: 77.06 BPMPV | | maxP.84 mmHgPV meanP.53 mmHgPV Vmax: 0.97 m/sPV Vmean: 0.57 m/sPV VTI: | | 20.25 cmRAP: 10 mmHgRVSP: 20.67 mmHgTR maxP.67 mmHgTR Vmax: 1.63 m/s | | Meeting Planner: Rileyhenticated by: Stevan ASKEW Date/Time: 04-20-2014 18:02:29 | [...] | |D-E Excursion: 1.76 cm | |E-F [place]: 0.10 m/s | |EPSS: 0.24 cm | [...] | |MCO: 460.20 ms | |MV A Ed: 0.58 m/s | |MV DecT: 219.45 ms | |MV E Ed: 0.67 m/s | |MV E/A Ratio: 1.14 [...] |TR Vmax: 1.63 m/s | | | |Meeting Planner: GD | |Authenticated by: JOSE KO MD | |Report Date/Time: 04-20-2014 18:02:29 [...] | LAB | | | | BY [employer]READ BACK RESULTS | | | | | | VERIFIEDTesting | | | | | | performed at [facility];[address] | | | | | | [address];[place], [place] | | | | | | [address] | | | | + + + [...] | MACKENZIE HARTLEY XR CHEST 1 VIEW HISTORY: 58 years. [...] | | | | | [place] [address] | | | | + + + [...] performed at [facility], [address] | | LAB | | | | [address], | | | | | | [place] [address] | | | | + + + [...] EXTERNAL | | | | performed at [facility] | | LAB | | | | [address];[place] | | | | | | [address] | | | | + + + [...] | | | Fingerstick | performed at [facility];[address] | | LAB | | | | [address];[place] | | | | | | [address] | | | | + + + + + + + + | Specimen | + + | | + + + +---------+ + + | Performing | Address | City/State/Zipcode | Phone Number | | Organization | | | | + +---------+ + + | EXTERNAL LAB | | | | + +---------+ + + External Lab: RAPHAEL (04/20/2014 4:30 AM PST) + + +---- [...] | | | | | [place] [address] | | | | + + +---- + + + | RED CELL | 3.57 (L)Comment: Testing | 3.7 0 - 5.10 | EXTERNAL | | | COUNT | performed at [facility], [address] | [address] | LAB | | | | [address], | | | | | | [place] [address] | | | | + + +---- + + + | Hgb | 8.9 (L)Comment: Testing | 11. 3 - 15.5 | EXTERNAL | | | | performed at [facility], [address] | g/d L | LAB | | | | [address], | | | | | | [place] [address] | | | | + + +---- + + + | Hematocrit, | 29.8 (L)Comment: Testing | 34. 0 - 46.0 % | EXTERNAL | | | POC | performed at [facility], [address] | | LAB | | | | [address], | | | | | | [place] [address] | | | | + + +---- + + + | MCV | 83.5Comment: Testing | 80. 0 - 100.0 fl | EXTERNAL | | | | performed at [facility], [address] | | LAB | | | | [address], | | | | | | [place] [address] | | | | + + +---- + + + | MCH | 24.9 (L)Comment: Testing | 27. 0 - 34.0 pg | EXTERNAL | | | | performed at [facility], [address] | | LAB | | | | [address], | | | | | | [place] [address] | | | | + + +---- + + + | MCHC | 29.9 (L)Comment: Testing | 32. 0 - 35.5 | EXTERNAL | | | | performed at [facility], [address] | g/d L | LAB | | | | [address], | | | | | | [place] [address] | | | | + + +---- + + + | RDW-CV | 67.8 (H)Comment: Testing | 37 - 53 fl | EXTERNAL | | | | performed at [facility], [address] | | LAB | | | | [address], | | | | | | [place] [address] | | | | + + +---- + + + | Platelet | 373Comment: Testing | 150 - 400 K/uL | EXTERNAL | | | Count | performed at [facility], [address] | | LAB | | | Plasma | [address], | | | | | | [place] [address] | | | | + + +---- + + + | MPV | 9.3Comment: Testing | fl | EXTERNAL | | | | performed at [facility], [address] | | LAB | | | | [address], | | | | | | [place] [address] | | | | + + +---- + + + | Differentia | MANUALComment: Testing | | EXTERNAL | | | l Type | performed at [facility], [address] | | LAB | | | | [address], | | | | | | [place] [address] | | | | + + +---- + + + | Nucleated | 3 (H)Comment: Testing | /10 0WBC | EXTERNAL | | | Red Blood | performed at [facility], [address] | | LAB | | | Cells | [address], | | | | | | [place] [place] [address] | | | | + + +---- + + + | Segmented | 71Comment: Testing | % | EXTERNAL | | | Neutrophils | performed at [facility], [address] | | LAB | | | Manual | [place], | | | | | | [place] [address] | | | | + + +---- + + + | % Bands | 2Comment: Testing | % | EXTERNAL | | | | performed at [facility], [address] | | LAB | | | | [place], | | | | | | [place] [address] | | | | + + +---- + + + | Lymphocytes | 17Comment: Testing | % | EXTERNAL | | | Manual | performed at [facility], [address] | | LAB | | | | [place], | | | | | | [place] [address] | | | | + + +---- + + + | Monocytes | 9Comment: Testing | % | EXTERNAL | | | Manual | performed at [facility], [address] | | LAB | | | | [place], | | | | | | [place] [address] | | | | + + +---- + + + | Eosinophils | 1Comment: Testing | % | EXTERNAL | | | Manual | performed at [facility], [address] | | LAB | | | | [place], | | | | | | [place] [address] | | | | + + +---- + + + | Absolute | 15.2 (H)Comment: Testing | 1.9 - 7.4 K/uL | EXTERNAL | | | Neutrophils | performed at [facility], [address] | | LAB | | | | [address] [place], | | | | | | [place] [address] | | | | + + +---- + + + | Bands | 0.4 (H)Comment: Testing | 0 - 0.2 K/uL | EXTERNAL | | | Manual | performed at [facility], [address] | | LAB | | | | [place], | | | | | | [place] [address] | | | | + + +---- + + + | Absolute | 3.6Comment: Testing | 1.0 - 3.9 K/uL | EXTERNAL | | | Lymphocytes | performed at [facility], [address] | | LAB | | | | [place], | | | | | | [place] [address] | | | | + + +---- + + + | Absolute | 1.9 (H)Comment: Testing | 0 - 0.8 K/uL | EXTERNAL | | | Monocytes | performed at [facility], [address] | | LAB | | | | [place], | | | | | | [place] [address] | | | | + + +---- + + + | Absolute | 0.2Comment: Testing | 0 - 0.5 K/uL | EXTERNAL | | | Eosinophils | performed at [facility], [address] | | LAB | | | | [place], | | | | | | [place] [address] | | | | + + +---- [...] | | | | | [place] [address] | | | | | |1+ | | | | | |MICRO | | | | | |1+ | | | | | |TARGET | | | | | |NORMAL PLT MORPH | | | | | |Testing performed at [facility], [address] [place] [address], [place] [address] | | | | | | | | | | + + +---- + + + | Differentia | SMUDGE CELLSComment: | | EXTERNAL | | | l Comments | Testing performed at | | LAB | | | | [facility], [address] [place] [address] | | | | | | [facility], [place], [place] | | | | | | [address] | | | | + + +---- [...] EXTERNAL | | | | performed at [facility];[address] | mmol/L | LAB | | | | Torsten [place] | | | | | | [address] | | | | + + + [...] | | | | | | [place] [address] | | | | + + + + + + | T3, Total | 102Comment: Testing | 80 - 200 ng/dL | EXTERNAL | | | | performed at [facility], [address] | | LAB | | | | [place] | | | | | | [place] [address] | | | | + + + [...] EXTERNAL | | | | performed at [facility];[address] | | LAB | | | | [facility];[place], [place] | | | | | | [address] | | | | + + + [...] | | | | | | at [facility];[address] [facility] | | | | | | [facility];[place] [address] | | | | + + + [...] EXTERNAL | | | | performed at [facility];[address] | | LAB | | | | [address];[place], [place] | | | | | | [address] | | | | + + + [...] | | | | | | ACUTE SC Testing | | | | | | performed at [facility];[address] | | | | | | [address];[place], [place] | | | | | | [address] | | | | + + + [...] [place] | | | | | | [address] | | | | + + + + + + | HEP B | NON REACTIVEComment: | | EXTERNAL | | | SURFACE | Testing performed at | | LAB | | | ANTIBODY | [facility], [address] | | | | | | [place] | | | | | | [address] | | | | + + + + + + | HEP B CORE | NON REACTIVEComment: | | EXTERNAL | | | IgM | Testing performed at | | LAB | | | | [facility], [address] | | | | | | [place] | | | | | | [address] | | | | + + + + + + | HCV Ab | NON REACTIVEComment: | | EXTERNAL | | | | Testing performed at | | LAB | | | | [facility], [address] [facility] | | | | | | [place] | | | | | | [address] | | | | + + + + + + | Hepatitis | No serologic evidence of | | EXTERNAL | | | Interp.: | HAV, HBV, or HCV | | LAB | | | | infection.Comment: | | | | | | Testing performed at | | | | | | [facility], [address] [facility] [place] | | | | | | [place] | | | | | | [address] | | | | + + + [...] | | | | | | P,CHROMATIN, INSTRUCTOR ADJUNCT SURGICAL TECHNICIAN, SM | | | | | | INSTRUCTOR ADJUNCT SURGICAL TECHNICIAN, SCL-70, CENTROMERE | | | | | | B, SSA, SSB AND SHAZIA-1) | | | | | | WASPERFORMED AND NO | | | | | | AUTOANTIBODIES WERE | | | | | | DETECTED.Testing | | | | | | performed at [facility], [address] | | | | | | [facility] | | | | | | [place] [address] | | | | + + + + + + | ANCA Screen | <1:20Comment: REFERENCE | | EXTERNAL | | | | RANGE: <1:20Testing | | LAB | | | | performed at [facility], [address] | | | | | | [facility] | | | | | [place] [address] | | | | + + + [...] | | | | sting performed at [facility], | | | | | | [address] [facility], | | | | | | [place] [address] | | | | + + + [...] | | | | | | at [facility], [address] | | | | | | [place] | | | | | | [address] | | | | + + + [...] | | | Patient | performed at [facility];[address] | | LAB | | | | [address];[place], [place] | | | | | | [address] | | | | + + + + + + + + | Specimen | + + | Blood specimen | | (specimen) | + + + +---------+ + + | Performing | Address | City/State/Zipcode | Phone Number | | Organization | | | | + +---------+ + + | EXTERNAL LAB | | | | + +---------+ + + Mauime SANDRA (04/20/2014 3:11 AM PST) + + + [...] | | | | | performed at [facility] | | | | | | [address] [facility];[place], [place] | | | | | | [address] | | | | + + + [...] | | | FACTOR | performed at [facility], [address] | | LAB | | | | [place], | | | | | | [place] [address] | | | | + + + [...] + + + + | TSI | 0.39 (L)Comment: Testing | 0.45 - 5.10 | EXTERNAL | | | | performed at [facility], [address] | uIU/mL | LAB | | | | [address] [place], | | | | | | [place] [address] | | | | + + [...] | | | (REF) | performed at [facility], [address] | | LAB | | | | [place], | | | | | | [place] [address] | | | | + + + [...] performed at [facility], [address] | mg/dL | LAB | | | | [place], | | | | | | [place] [address] | | | | + + + [...] performed at [facility], [address] | | LAB | | | | [place], | | | | | | [place] [address] | | | | + + + [...] + + | Hemoglobin | 5.4Comment: The [place] | 4.0 - 6.0 % | EXTERNAL [...] | | | | | performed at [facility], [address] | | | | | | [address] [place], | | | | | | [place] [address] | | | | + + + [...] | | | | | performed at [facility], [address] | | | | | | [place], | | | | | | [place] [address] | | | | + + + [...] EXTERNAL | | | | performed at [facility];[address] | | LAB | | | | [address];[place], [place] | | | | | | [address] | | | | + + + [...] | | | | | [place] [address] | | | | + + + + + + | Albumin | 2.2 (L)Comment: Testing | 3.6 - 5.0 g/dL | EXTERNAL | | | | performed at [facility], [address] | | LAB | | | [address], | | | | | | [place] [address] | | | | + + + + + + | Bilirubin | 0.5Comment: Testing | 0.1 - 1.5 mg/dL | EXTERNAL | | | Total | performed at [facility], [address] | | LAB | | | | [address], | | | | | | [place] [address] | | | | + + + + + + | Bilirubin | 0.1Comment: Testing | 0.0 - 0.3 mg/dL | EXTERNAL | | | Direct | performed at [facility], [address] | | LAB | | | | [place], | | | | | | [place] [address] | | | | + + + + + + | ALP, | 112Comment: Testing | 35 - 115 U/L | EXTERNAL | | | External | performed at [facility], [address] | | LAB | | | [address], | | | | | | [place] [address] | | | | + + + + + + | AST | 31Comment: Testing | 10 - 45 U/L | EXTERNAL | | | | performed at [facility], [address] | | LAB | | | | [address], | | | | | | [place] [address] | | | | + + + + + + | ALT | 15Comment: Testing | 10 - 65 U/L | EXTERNAL | | | | performed at [facility], [address] | | LAB | | | | [place], | | | | | | [place] [address] | | | | + + + [...] | | | | | [place] [address] | | | | + + + + + + | Triglycerid | 398 (H)Comment: Testing | mg/dL | EXTERNAL | | | es | performed at [facility], [address] | | LAB | | | [address], | | | | | | [place] [address] | | | | + + + + + + | HDL | 48Comment: Testing | mg/dL | EXTERNAL | | | | performed at [facility], [address] | | LAB | | | | [address], | | | | | | [place] [address] | | | | + + + + + + | LDL | 35Comment: Testing | mg/dL | EXTERNAL | | | Cholesterol | performed at [facility], [address] | | LAB | | | , | [address], | | | | | Calculated, | [place] [address] | | | | | External | | | | | + + [...] | | | | | [place] [address] | | | | + + + + + + | K | 3.1 (L)Comment: Testing | 3.5 - 4.9 | EXTERNAL | | | | performed at [facility], [address] | mmol/L | LAB | | | | [place], | | | | | | [place] [address] | | | | + + + + + + | Cl | 108Comment: Testing | 99 - 109 mmol/L | EXTERNAL | | | | performed at [facility], [address] | | LAB | | | [address], | | | | | | [place] [address] | | | | + + + + + + | CO2 | 31Comment: Testing | 23 - 32 mmol/L | EXTERNAL | | | | performed at [facility], [address] | | LAB | | | | [address], | | | | | | [place] [address] | | | | + + + + + + | Anion Gap | 8Comment: Testing | 5 - 20 mmol/L | EXTERNAL | | | | performed at [facility], [address] | | LAB | | | | [address], | | | | | | [place] [address] | | | | + + + + + + | Glucose, | 135 (H)Comment: Testing | 65 - 99 mg/dL | EXTERNAL | | | Fasting | performed at [facility], [address] | | LAB | | | | [address], | | | | | | [place] [address] | | | | + + + + + + | BUN | 25Comment: Testing | 8 - 25 mg/dL | EXTERNAL | | | | performed at [facility], [address] | | LAB | | | | [address], | | | | | | [place] [address] | | | | + + + + + + | Creatinine | 0.58Comment: Testing | 0.50 - 1.00 | EXTERNAL | | | | performed at [facility], [address] | mg/dL | LAB | | | | [address], | | | | | | [place] [address] | | | | + + + + + + | BUN/Creatin | 43Comment: Testing | | EXTERNAL | | | ine Ratio | performed at [facility], [address] | | LAB | | | | [address], | | | | | | [place] [address] | | | | + + + + + + | Calcium | 7.8 (L)Comment: Testing | 8.5 - 10.2 | EXTERNAL | | | | performed at [facility], [address] | mg/dL | LAB | | | | [place], | | | | | | [place] [address] | | | | + + + [...] W | | | | | | [facility] [place], | | | | | | [place] [address] | | | | + + + [...] ALBICANSAbnormal | | | Testing performed at [facility], [address] [place], [place] | | | [address] | | + + + + +---------+ [...] | | | Fingerstick | performed at [facility];[address] | | LAB | | | | [place] | | | | | | [address] | | | | + + + [...] GROWTH | | | Testing performed at [facility], [address] | | | [place] [address] | | + + + + +---------+ [...] | | tubes are noted on the software support representative image. | | + + + + + | Procedure Note | + + | Judson Tez Conversion - 11/24/2018 6:38 AM PDT MACKENZIE HARTLEYCT HEAD WO CONTRAST04/19/2014 | | 9:30 PM [...] and endotracheal tubes are noted on the software support representative image. IMPRESSION: 1. No acute | | [...] and endotracheal tubes are noted on the software support representative im age. | | | |IMPRESSION: | [...] PORT | | | Testing performed at [facility];[address];[place] [address] CULTURE | | | NO GROWTH | | | Testing performed at [facility], [address] [facility], [place], [place] | | | [address] | | + + + + +---------+ [...] | | | | | | at [facility], [address] | | | | | | [place] | | | | | | [address] | | | | + + + [...] EXTERNAL | | | | performed at [facility] | | LAB | | | | [address];[place], [place] | | | | | | [address] | | | | + + + [...] LAB | | | | performed at [facility];[address] | | | | [address];[place], [place] | | | | | | [address] | | | | + + + [...] EXTERNAL | | | | performed at [facility];[address] | mmol/L | LAB | | | | [place] | | | | | | [address] | | | | + + + + + + | K | 4.1Comment: SLT | 3.5 - 4.9 | EXTERNAL | | | | HEMOLYSISTesting | mmol/L | LAB | | | | performed at [facility];[address] | | | | | | [address];[place] | | | | | | [address] | | | | + + + + + + | Cl | 113 (H)Comment: Testing | 99 - 109 mmol/L | EXTERNAL | | | | performed at [facility];[address] | | LAB | | | | [address];[place] | | | | | | [address] | | | | + + + + + + | CO2 | 29Comment: Testing | 23 - 32 mmol/L | EXTERNAL | | | | performed at [facility];[address] | | LAB | | | [address];[place] | | | | | | [address] | | | | + + + + + + | Anion Gap | 11Comment: Testing | 5 - 20 mmol/L | EXTERNAL | | | | performed at [facility];[address] | | LAB | | | | [address];[place] | | | | | | [address] | | | | + + + + + + | Glucose, | 120 (H)Comment: Testing | 65 - 99 mg/dL | EXTERNAL | | | Fasting | performed at [facility];[address] | | LAB | | | | [address];[place] | | | | | | [address] | | | | + + + + + + | BUN | 25Comment: Testing | 8 - 25 mg/dL | EXTERNAL | | | | performed at [facility];[address] | | LAB | | | | [address];[place] | | | | | | [address] | | | | + + + + + + | Creatinine | 0.72Comment: Testing | 0.50 - 1.00 | EXTERNAL | | | | performed at [facility];[address] | mg/dL | LAB | | | | [address];[place] | | | | | | [address] | | | | + + + + + + | BUN/Creatin | 35Comment: Testing | | EXTERNAL | | | ine Ratio | performed at [facility];[address] | | LAB | | | | [address];[place] | | | | | | [address] | | | | + + + + + + | Calcium | 8.3 (L)Comment: Testing | 8.5 - 10.2 | EXTERNAL | | | | performed at [facility];[address] | mg/dL | LAB | | | | [address] [facility];[place], [place] | | | | | | [address] | | | | + + + [...] | | | | | | at [facility];[address];[place] [address] | | | | + + + [...] LAC | | | Testing performed at [facility];[address] | | | [facility];[place] [address] CULTURE | | | NO GROWTH | | | Testing performed at [facility], [address] [facility], [place], [place] | | | [address] | | + + + + +---------+ [...] | | | Fingerstick | performed at [facility];[address] | | LAB | | | | [place] | | | | | | [address] | | | | + + + [...] | | | | | performed at [facility] | | | | | | [address] [facility];[place], [place] | | | | | | [address] | | | | + + + [...] | | | Fingerstick | performed at [facility];8 | | LAB | | | | [place] | | | | | | [address] | | | | + + + [...] | EXTERNAL LAB | | performed at [facility];[address] [place] [address];[place] [address] 027 NAP1 BI | | | 027 NAP1 BI PRESUMPTIVE NEGATIVE | | | Detection of 027 NAP1 BI strains of C. difficile is presumptive and | | | for epidemiological purposes and not intended to guide or monitor | | | treatment for C. difficile infections. Testing performed at [facility];8 | | | [facility];[place] [address] | | + + + + +---------+ [...] EXTERNAL | | | | performed at [facility];888 | mmol/L | LAB | | | | [address];[place], [place] | | | | | | [address] | | | | + + + [...] EXTERNAL | | | | performed at [facility] | | LAB | | | | [place] | | | | | | [address] | | | | + + + [...] EXTERNAL | | | | performed at [facility];[address] | | LAB | | | | [address];[place], [place] | | | | | | [address] | | | | + + + [...] | | | Fingerstick | performed at [facility];[address] | | LAB | | | | [place] | | | | | | [address] | | | | + + + [...] Conversion - 11/24/2018 6:38 AM PDT MACKENZIE ODILIAXR CHEST 1 VIEW04/19/2014 5:43 | | AM [...] | | | | | performed at [facility];[address] | | | | | | [address];[place], [place] | | | | | | [address] | | | | + + + [...] + +---------+ + + External Lab: RAPHAEL (04/19/2014 2:52 AM PST) + + +---- + + + | Component | Value | Ref Range | Performed | Pathologist | | | | | At | Signature | + + +---- + + + | WBC | 18.2 (H)Comment: Testing | 3.8 - 11.0 K/uL | EXTERNAL | | | | performed at [facility], [address] | | LAB | | | | [address] [place], | | | | | | [place] [address] | | | | + + +---- + + + | RED CELL | 3.63 (L)Comment: Testing | 3.7 0 - 5.10 | EXTERNAL | | | COUNT | performed at [facility], [address] | M/u L | LAB | | | | [place], | | | | | | [place] [address] | | | | + + +---- + + + | Hgb | 9.7 (L)Comment: Testing | 11. 3 - 15.5 | EXTERNAL | | | | performed at [facility], [address] | g/d L | LAB | | | | [place], | | | | | | [place] [address] | | | | + + +---- + + + | Hematocrit, | 30.8 (L)Comment: Testing | 34. 0 - 46.0 % | EXTERNAL | | | POC | performed at [facility], [address] | | LAB | | | | [address] [place], | | | | | | [place] [address] | | | | + + +---- + + + | MCV | 84.8Comment: Testing | 80. 0 - 100.0 fl | EXTERNAL | | | | performed at [facility], [address] | | LAB | | | | [place], | | | | | | [place] [address] | | | | + + +---- + + + | MCH | 26.8 (L)Comment: Testing | 27. 0 - 34.0 pg | EXTERNAL | | | | performed at [facility], [address] | | LAB | | | | [address], | | | | | | [place] [address] | | | | + + +---- + + + | MCHC | 31.6 (L)Comment: Testing | 32. 0 - 35.5 | EXTERNAL | | | | performed at [facility], [address] | g/d L | LAB | | | | [address], | | | | | | [place] [address] | | | | + + +---- + + + | RDW-CV | 68.3 (H)Comment: Testing | 37 - 53 fl | EXTERNAL | | | | performed at [facility], [address] | | LAB | | | | [address] [place], | | | | | | [place] [address] | | | | + + +---- + + + | Platelet | 388Comment: Testing | 150 - 400 K/uL | EXTERNAL | | | Count | performed at [facility], [address] | | LAB | | | Plasma | [place], | | | | | | [place] [address] | | | | + + +---- + + + | MPV | 9.6Comment: Testing | fl | EXTERNAL | | | | performed at [facility], [address] | | LAB | | | | [place], | | | | | | [place] [address] | | | | + + +---- + + + | Differentia | MANUALComment: Testing | | EXTERNAL | | | l Type | performed at [facility], [address] | | LAB | | | | [place], | | | | | | [place] [address] | | | | + + +---- + + + | Nucleated | 1 (H)Comment: Testing | /10 0WBC | EXTERNAL | | | Red Blood | performed at [facility], [address] | | LAB | | | Cells | [address] [place], | | | | | | [place] [address] | | | | + + +---- + + + | Segmented | 77Comment: Testing | % | EXTERNAL | | | Neutrophils | performed at [facility], [address] | | LAB | | | Manual | [place], | | | | | | [place] [address] | | | | + + +---- + + + | % Bands | 6Comment: Testing | % | EXTERNAL | | | | performed at [facility], [address] | | LAB | | | | [place], | | | | | | [place] [address] | | | | + + +---- + + + | % | 2Comment: Testing | % | EXTERNAL | | | Metamyelocy | performed at [facility], [address] | | LAB | | | [address] | [address] [place], | | | | | | [place] [address] | | | | + + +---- + + + | Lymphocytes | 12Comment: Testing | % | EXTERNAL | | | Manual | performed at [facility], [address] | | LAB | | | [address], | | | | | | [place] [address] | | | | + + +---- + + + | Monocytes | 3Comment: Testing | % | EXTERNAL | | | Manual | performed at [facility], [address] | | LAB | | | | [address], | | | | | | [place] [address] | | | | + + +---- + + + | Absolute | 14.0 (H)Comment: Testing | 1.9 - 7.4 K/uL | EXTERNAL | | | Neutrophils | performed at [facility], [address] | | LAB | | | | [address], | | | | | | [place] [address] | | | | + + +---- + + + | Bands | 1.1 (H)Comment: Testing | 0 - 0.2 K/uL | EXTERNAL | | | Manual | performed at [facility], [address] | | LAB | | | | [address], | | | | | | [place] [address] | | | | + + +---- + + + | Absolute | 0.4 (H)Comment: Testing | K/u L | EXTERNAL | | | Metamyelocy | performed at [facility], [address] | | LAB | | | [address] | [address], | | | | | | [place], [place] [address] | | | | + + +---- + + + | Absolute | 2.2Comment: Testing | 1.0 - 3.9 K/uL | EXTERNAL | | | Lymphocytes | performed at [facility], [address] | | LAB | | | | [address], | | | | | | [place] [address] | | | | + + +---- + + + | Absolute | 0.5Comment: Testing | 0 - 0.8 K/uL | EXTERNAL | | | Monocytes | performed at [facility], [address] | | LAB | | | | [address], | | | | | | [place] [address] | | | | + + +---- + + + | RBC | 2+Comment: | | EXTERNAL | | | Morphology | ANISO1+POIK2+HYPO1+MICRO | | LAB | | | | 1+TARGETNORMAL PLT | | | | | | MORPHTesting performed | | | | | | at [facility], [address] | | | | | | [facility], | | | | | | [place] [address] | | | | | |1+ | | | | | |MICRO | | | | | |1+ | | | | | |TARGET | | | | | |NORMAL PLT MORPH | | | | | |Testing performed at [facility], [address] [place] [address] | | | | | | | [...] | | | | | [place] [address] | | | | + + + [...] performed at [facility], [address] | | LAB | | | | [address], | | | | | | [place] [address] | | | | + + + [...] | | | | | [place] [address] | | | | + + + + + + | K | 3.1 (L)Comment: Testing | 3.5 - 4.9 | EXTERNAL | | | | performed at [facility], [address] | mmol/L | LAB | | | | [address], | | | | | | [place] [address] | | | | + + + + + + | Cl | 105Comment: Testing | 99 - 109 mmol/L | EXTERNAL | | | | performed at [facility], [address] | | LAB | | | | [address], | | | | | | [place] [address] | | | | + + + + + + | CO2 | 29Comment: Testing | 23 - 32 mmol/L | EXTERNAL | | | | performed at [facility], [address] | | LAB | | | | [address], | | | | | | [place] [address] | | | | + + + + + + | Anion Gap | 9Comment: Testing | 5 - 20 mmol/L | EXTERNAL | | | | performed at [facility], [address] | | LAB | | | | [address], | | | | | | [place] [address] | | | | + + + + + + | Glucose, | 159 (H)Comment: Testing | 65 - 99 mg/dL | EXTERNAL | | | Fasting | performed at [facility], [address] | | LAB | | | | [address], | | | | | | [place] [address] | | | | + + + + + + | BUN | 17Comment: Testing | 8 - 25 mg/dL | EXTERNAL | | | | performed at [facility], [address] | | LAB | | | [address], | | | | | | [place] [address] | | | | + + + + + + | Creatinine | 0.41 (L)Comment: Testing | 0.50 - 1.00 | EXTERNAL | | | | performed at [facility], [address] | mg/dL | LAB | | | | [address], | | | | | | [place] [address] | | | | + + + + + + | BUN/Creatin | 41Comment: Testing | | EXTERNAL | | | ine Ratio | performed at [facility], [address] | | LAB | | | | [address], | | | | | | [place] [address] | | | | + + + + + + | Calcium | 7.8 (L)Comment: Testing | 8.5 - 10.2 | EXTERNAL | | | | performed at [facility], [address] | mg/dL | LAB | | | | [address], | | | | | | [place] [address] | | | | + + + [...] | at [facility], [address] | | | | | | [address], | | | | | | [place] [address] | | | | + + + [...] | | | Fingerstick | performed at [facility] | | LAB | | | | [address];[place] | | | | | | [address] | | | | + + + [...] | | | Fingerstick | performed at [facility];[address] | | LAB | | | | [address];[place], [place] | | | | | | [address] | | | | + + + [...] EXTERNAL | | | | performed at [facility];[address] | mmol/L | LAB | | | | [address];[place] | | | | | | [address] | | | | + + + [...] | | | Fingerstick | performed at [facility];[address] | | LAB | | | | [address];[place] | | | | | | [address] | | | | + + + [...] At | + + + | 1. Leanna chest. | | + + + + [...] Conversion - 11/24/2018 6:38 AM PDT MACKENZIE JEFFERY CHEST 1 VIEW04/18/2014 6:43 | | AM [...] | | | Fingerstick | performed at [facility];[address] | | LAB | | | | [address];[place] | | | | | | [address] | | | | + + + + + + + + | Specimen | + + | | + + + +---------+ + + | Performing | Address | City/State/Zipcode | Phone Number | | Organization | | | | + +---------+ + + | EXTERNAL LAB | | | | + +---------+ + + [facility] INR (04/18/2014 4:30 AM PST) + + + [...] | | | | | performed at [facility] | | | | | | [address] [facility];[place], [place] | | | | | | [address] | | | | + + + [...] + +---------+ + + External Lab: RAPHAEL (04/18/2014 4:30 AM PST) + + +---- + + + | Component | Value | Ref Range | Performed | Pathologist | | | | | At | Signature | + + +---- + + + | WBC | 22.9 (H)Comment: Testing | 3.8 - 11.0 K/uL | EXTERNAL | | | | performed at [facility], [address] | | LAB | | | | [address], | | | | | | [place] [address] | | | | + + +---- + + + | RED CELL | 3.55 (L)Comment: Testing | 3.7 0 - 5.10 | EXTERNAL | | | COUNT | performed at [facility], [address] | M/u L | LAB | | | | [address], | | | | | | [place] [address] | | | | + + +---- + + + | Hgb | 8.8 (L)Comment: RESULT | 11. 3 - 15.5 | EXTERNAL | | | | VERIFIEDTesting | g/d L | LAB | | | | performed at [facility], [address] | | | | | | [address], | | | | | | [place] [address] | | | | + + +---- + + + | Hematocrit, | 29.5 (L)Comment: RESULT | 34. 0 - 46.0 % | EXTERNAL | | | POC | VERIFIEDTesting | | LAB | | | | performed at [facility], [address] | | | | | | [address], | | | | | | [place] [address] | | | | + + +---- + + + | MCV | 83.2Comment: Testing | 80. 0 - 100.0 fl | EXTERNAL | | | | performed at [facility], [address] | | LAB | | | | [address], | | | | | | [place] [address] | | | | + + +---- + + + | MCH | 24.8 (L)Comment: Testing | 27. 0 - 34.0 pg | EXTERNAL | | | | performed at [facility], [address] | | LAB | | | | [address], | | | | | | [place] [address] | | | | + + +---- + + + | MCHC | 29.8 (L)Comment: Testing | 32. 0 - 35.5 | EXTERNAL | | | | performed at [facility], [address] | g/d L | LAB | | | | [address], | | | | | | [place] [address] | | | | + + +---- + + + | RDW-CV | 64.8 (H)Comment: Testing | 37 - 53 fl | EXTERNAL | | | | performed at [facility], [address] | | LAB | | | | [address], | | | | | | [place] [address] | | | | + + +---- + + + | Platelet | 397Comment: Testing | 150 - 400 K/uL | EXTERNAL | | | Count | performed at [facility], [address] | | LAB | | | Plasma | [address], | | | | | | [place] [address] | | | | + + +---- + + + | MPV | 9.2Comment: Testing | fl | EXTERNAL | | | | performed at [facility], [address] | | LAB | | | | [address], | | | | | | [place] [address] | | | | + + +---- + + + | Differentia | MANUALComment: Testing | | EXTERNAL | | | l Type | performed at [facility], [address] | | LAB | | | | [address], | | | | | | [place] [address] | | | | + + +---- + + + | Nucleated | 2 (H)Comment: Testing | /10 0WBC | EXTERNAL | | | Red Blood | performed at [facility], [address] | | LAB | | | Cells | [address], | | | | | | [place] [address] | | | | + + +---- + + + | Segmented | 72Comment: Testing | % | EXTERNAL | | | Neutrophils | performed at [facility], [address] | | LAB | | | Manual | [address], | | | | | | [place] [address] | | | | + + +---- + + + | % | 2Comment: Testing | % | EXTERNAL | | | Metamyelocy | performed at [facility], [address] | | LAB | | | [address] | [address], | | | | | | [place] [address] | | | | + + +---- + + + | Lymphocytes | 15Comment: Testing | % | EXTERNAL | | | Manual | performed at [facility], [address] | | LAB | | | | [address], | | | | | | [place] [address] | | | | + + +---- + + + | Monocytes | 10Comment: Testing | % | EXTERNAL | | | Manual | performed at [facility], [address] | | LAB | | | | [address], | | | | | | [place] [address] | | | | + + +---- + + + | Eosinophils | 1Comment: Testing | % | EXTERNAL | | | Manual | performed at [facility], [address] | | LAB | | | | [address], | | | | | | [place] [address] | | | | + + +---- + + + | Absolute | 16.5 (H)Comment: Testing | 1.9 - 7.4 K/uL | EXTERNAL | | | Neutrophils | performed at [facility], [address] | | LAB | | | | [address], | | | | | | [place] [address] | | | | + + +---- + + + | Absolute | 0.5 (H)Comment: Testing | K/u L | EXTERNAL | | | Metamyelocy | performed at [facility], [address] | | LAB | | | [address] | [address], | | | | | | [place] [address] | | | | + + +---- + + + | Absolute | 3.4Comment: Testing | 1.0 - 3.9 K/uL | EXTERNAL | | | Lymphocytes | performed at [facility], [address] | | LAB | | | | [address], | | | | | | [place] [address] | | | | + + +---- + + + | Absolute | 2.3 (H)Comment: Testing | 0 - 0.8 K/uL | EXTERNAL | | | Monocytes | performed at [facility], [address] | | LAB | | | | [address], | | | | | | [place] [address] | | | | + + +---- + + + | Absolute | 0.2Comment: Testing | 0 - 0.5 K/uL | EXTERNAL | | | Eosinophils | performed at [facility], [address] | | LAB | | | | [address], | | | | | | [place] [address] | | | | + + +---- + + + | RBC | 2+Comment: | | EXTERNAL | | | Morphology | ANISO1+POIK2+HYPO1+TARGE | | LAB | | | | TNORMAL PLT MORPHTesting | | | | | | performed at [facility], [address] | | | | | | [address], | | | | | | [place] [address] | | | | | |HYPO | | | | | |1+ | | | | | |TARGET | | | | | |NORMAL PLT MORPH | | | | | |Testing performed at [facility], [address] [facility], [place] [address] | | | | | | | [...] performed at [facility], [address] | | LAB | | | | [facility], | | | | | | [place] [address] | | | | + + + [...] performed at [facility], [address] | | LAB | | | | [address], | | | | | | [place] [address] | | | | + + [...] | | | | | | [place] [address] | | | | + + + + + + | K | 3.2 (L)Comment: Testing | 3.5 - 4.9 | EXTERNAL | | | | performed at [facility], [address] | mmol/L | LAB | | | | [address], | | | | | | [place] [address] | | | | + + + + + + | Cl | 113 (H)Comment: Testing | 99 - 109 mmol/L | EXTERNAL | | | | performed at [facility], [address] | | LAB | | | [address], | | | | | | [place] [address] | | | | + + + + + + | CO2 | 30Comment: Testing | 23 - 32 mmol/L | EXTERNAL | | | | performed at [facility], [address] | | LAB | | | | [address], | | | | | | [place] [address] | | | | + + + + + + | Anion Gap | 7Comment: Testing | 5 - 20 mmol/L | EXTERNAL | | | | performed at [facility], [address] | | LAB | | | | [address], | | | | | | [place] [address] | | | | + + + + + + | Glucose, | 133 (H)Comment: Testing | 65 - 99 mg/dL | EXTERNAL | | | Fasting | performed at [facility], [address] | | LAB | | | | [address], | | | | | | [place] [address] | | | | + + + + + + | BUN | 22Comment: Testing | 8 - 25 mg/dL | EXTERNAL | | | | performed at [facility], [address] | | LAB | | | | [address], | | | | | | [place] [address] | | | | + + + + + + | Creatinine | 0.68Comment: Testing | 0.50 - 1.00 | EXTERNAL | | | | performed at [facility], [address] | mg/dL | LAB | | | | [address], | | | | | | [place] [address] | | | | + + + + + + | BUN/Creatin | 32Comment: Testing | | EXTERNAL | | | ine Ratio | performed at [facility], [address] | | LAB | | | [address], | | | | | | [place] [address] | | | | + + + + + + | Calcium | 7.8 (L)Comment: Testing | 8.5 - 10.2 | EXTERNAL | | | | performed at [facility], [address] | mg/dL | LAB | | | | [address], | | | | | | [place] [address] | | | | + + + [...] | at [facility], [address] | | | | | | [facility], | | | | | | [place] [address] | | | | + + + [...] | | | Fingerstick | performed at [facility];[address] | | LAB | | | | [address];[place], [place] | | | | | | [address] | | | | + + + [...] EXTERNAL | | | | performed at [facility];[address] | mmol/L | LAB | | | | [address];[place] | | | | | | [address] | | | | + + + [...] EXTERNAL | | | | performed at [facility];[address] | | LAB | | | | [address];[place], [place] | | | | | | [address] | | | | + + + [...] EXTERNAL | | | | performed at [facility];[address] | | LAB | | | | [address] [facility];[place], [place] | | | | | | [address] | | | | + + + [...] | | | Fingerstick | performed at [facility];[address] | | LAB | | | | [address];[place] | | | | | | [address] | | | | + + + [...] EXTERNAL | | | | performed at [facility];[address] | mmol/L | LAB | | | | [address];[place], [place] | | | | | | [address] | | | | + + + [...] | | | | | performed at [facility] | | | | | | [facility];[place], [place] | | | | | | [address] | | | | + + + [...] | | | Fingerstick | performed at [facility];[address] | | LAB | | | | [address];[place], [place] | | | | | | [address] | | | | + + + [...] + | MACKENZIE DIANE CHEST 1 VIEW 04/17/2014 6:25 AM HISTORY: [...] | | | Fingerstick | performed at [facility];[address] | | LAB | | | | [address];[place], [place] | | | | | | [address] | | | | + + + + + + + + | Specimen | + + | | + + + +---------+ + + | Performing | Address | City/State/Zipcode | Phone Number | | Organization | | | | + +---------+ + + | EXTERNAL LAB | | | | + +---------+ + + Ki FLORES (04/17/2014 3:19 AM PST) + + + [...] | | | | | performed at [facility];[address] | | | | | | [facility];[place], [place] | | | | | | [address] | | | | + + + [...] EXTERNAL | | | | performed at [facility];Alex | | LAB | | | | [address];[place] | | | | | | [address] | | | | + + + + + + | RED CELL | 3.78Comment: Testing | 3.70 - 5.10 | EXTERNAL | | | COUNT | performed at [facility];[address] | M/uL | LAB | | | | [address];[place] | | | | | | [address] | | | | + + + + + + | Hgb | 9.2 (L)Comment: Testing | 11.3 - 15.5 | EXTERNAL | | | | performed at [facility];[address] | g/dL | LAB | | | | [address];[place] | | | | | | [address] | | | | + + + + + + | Hematocrit, | 30.7 (L)Comment: Testing | 34.0 - 46.0 % | EXTERNAL | | | POC | performed at [facility];[address] | | LAB | | | | [address];[place] | | | | | | [address] | | | | + + + + + + | MCV | 81.2Comment: Testing | 80.0 - 100.0 fl | EXTERNAL | | | | performed at [facility];[address] | | LAB | | | | [address];[place] | | | | | | [address] | | | | + + + + + + | MCH | 24.2 (L)Comment: Testing | 27.0 - 34.0 pg | EXTERNAL | | | | performed at [facility];[address] | | LAB | | | | [address];[place] | | | | | | [address] | | | | + + + + + + | MCHC | 29.8 (L)Comment: Testing | 32.0 - 35.5 | EXTERNAL | | | | performed at [facility];[address] | g/dL | LAB | | | | [address];[place] | | | | | | [address] | | | | + + + + + + | RDW-CV | 63.4 (H)Comment: Testing | 37 - 53 fl | EXTERNAL | | | | performed at [facility];[address] | | LAB | | | | [address];[place] | | | | | | [address] | | | | + + + + + + | Platelet | 385Comment: Testing | 150 - 400 K/uL | EXTERNAL | | | Count | performed at [facility];[address] | | LAB | | | Plasma | [address];[place] | | | | | | [address] | | | | + + + + + + | MPV | 9.1Comment: Testing | fl | EXTERNAL | | | | performed at [facility];[address] | | LAB | | | | [address];[place] | | | | | | [address] | | | | + + + + + + | Differentia | MANUALComment: Testing | | EXTERNAL | | | l Type | performed at [facility];[address] | | LAB | | | | [address];[place] | | | | | | [address] | | | | + + + + + + | Segmented | 83Comment: Testing | % | EXTERNAL | | | Neutrophils | performed at [facility];[address] | | LAB | | | Manual | [address];[place] | | | | | | [address] | | | | + + + + + + | % Bands | 2Comment: Testing | % | EXTERNAL | | | | performed at [facility];[address] | | LAB | | | | [address];[place] | | | | | | [address] | | | | + + + + + + | % | 1Comment: Testing | % | EXTERNAL | | | Metamyelocy | performed at [facility];[address] | | LAB | | | petros | [address];[place] | | | | | | [address] | | | | + + + + + + | Lymphocytes | 6Comment: Testing | % | EXTERNAL | | | Manual | performed at [facility];[address] | | LAB | | | | [address];[place] | | | | | | [address] | | | | + + + + + + | Monocytes | 8Comment: Testing | % | EXTERNAL | | | Manual | performed at [facility];[address] | | LAB | | | | [address];[place] | | | | | | [address] | | | | + + + + + + | Absolute | 15.9 (H)Comment: Testing | 1.9 - 7.4 K/uL | EXTERNAL | | | Neutrophils | performed at [facility];[address] | | LAB | | | | [address];[place] | | | | | | [address] | | | | + + + + + + | Bands | 0.4 (H)Comment: Testing | 0 - 0.2 K/uL | EXTERNAL | | | Manual | performed at [facility];[address] | | LAB | | | | [address];[place] | | | | | | [address] | | | | + + + + + + | Absolute | 0.2 (H)Comment: Testing | K/uL | EXTERNAL | | | Metamyelocy | performed at [facility];[address] | | LAB | | | petros | [address];[place] | | | | | | [address] | | | | + + + + + + | Absolute | 1.2Comment: Testing | 1.0 - 3.9 K/uL | EXTERNAL | | | Lymphocytes | performed at [facility];[address] | | LAB | | | | [address];[place] | | | | | | [address] | | | | + + + + + + | Absolute | 1.5 (H)Comment: Testing | 0 - 0.8 K/uL | EXTERNAL | | | Monocytes | performed at [facility];[address] | | LAB | | | | [address];[place] | | | | | | [address] | | | | + + + + + + | Platelet | ADEQUATEComment: Testing | | EXTERNAL | | | Estimate | performed at [facility];[address] | | LAB | | | | [address];[place] | | | | | | [address] | | | | + + + + + + | RBC | 1+Comment: | | EXTERNAL | | | Morphology | ANISO1+HYPO1+POIK1+TARGE | | LAB | | | | TNORMAL PLT MORPHTesting | | | | | | performed at [facility];[address] | | | | | | [address];[place] | | | | | | [address] | | | | | |POIK | | | | | |1+ | | | | | |TARGET | | | | | |NORMAL PLT MORPH | | | | | |Testing performed at [facility];[address];[place] [address] | | | | | | | [...] EXTERNAL | | | | performed at [facility];[address] | | LAB | | | | [address];[place], [place] | | | | | | [address] | | | | + + + [...] EXTERNAL | | | | performed at [facility] | | LAB | | | | [facility];[place], [place] | | | | | | [address] | | | | + + + [...] EXTERNAL | | | | performed at [facility];888 | mmol/L | LAB | | | | [address];[place] | | | | | | [address] | | | | + + + + + + | K | 3.1 (L)Comment: Testing | 3.5 - 4.9 | EXTERNAL | | | | performed at [facility];[address] | mmol/L | LAB | | | | [address];[place] | | | | | | [address] | | | | + + + + + + | Cl | 114 (H)Comment: Testing | 99 - 109 mmol/L | EXTERNAL | | | | performed at [facility];[address] | | LAB | | | | [address];[place] | | | | | | [address] | | | | + + + + + + | CO2 | 31Comment: Testing | 23 - 32 mmol/L | EXTERNAL | | | | performed at [facility];[address] | | LAB | | | | [address];[place] | | | | | | [address] | | | | + + + + + + | Anion Gap | 9Comment: Testing | 5 - 20 mmol/L | EXTERNAL | | | | performed at [facility];[address] | | LAB | | | | [address];[place] | | | | | | [address] | | | | + + + + + + | Glucose, | 163 (H)Comment: Testing | 65 - 99 mg/dL | EXTERNAL | | | Fasting | performed at [facility];[address] | | LAB | | | | [address];[place] | | | | | | [address] | | | | + + + + + + | BUN | 20Comment: Testing | 8 - 25 mg/dL | EXTERNAL | | | | performed at [facility];[address] | | LAB | | | | [address];[place] | | | | | | [address] | | | | + + + + + + | Creatinine | 0.96Comment: Testing | 0.50 - 1.00 | EXTERNAL | | | | performed at [facility];[address] | mg/dL | LAB | | | | [address];[place] | | | | | | [address] | | | | + + + + + + | BUN/Creatin | 21Comment: Testing | | EXTERNAL | | | ine Ratio | performed at [facility];[address] | | LAB | | | | [address];[place] | | | | | | [address] | | | | + + + + + + | Calcium | 7.5 (L)Comment: Testing | 8.5 - 10.2 | EXTERNAL | | | | performed at [facility];888 | mg/dL | LAB | | | | [address];[place] | | | | | | [address] | | | | + + + [...] | | | | | | at [facility];[address] | | | | | | [address];[place] [address] | | | | + + + [...] | | | Fingerstick | performed at [facility];[address] | | LAB | | | | [address];[place] | | | | | | [address] | | | | + + + [...] | | | Fingerstick | performed at [facility];[address] | | LAB | | | | [address];[place] | | | | | | [address] | | | | + + + [...] | | | Fingerstick | performed at [facility];[address] | | LAB | | | | [address];[place], [place] | | | | | | [address] | | | | + + + [...] | | | | | performed at [facility] | | | | | | [address];[place], [place] | | | | | | [address] | | | | + + + [...] | | | Fingerstick | performed at [facility];[address] | | LAB | | | | [address];[place], [place] | | | | | | [address] | | | | + + + [...] + + + | MACKENZIE HARTLEY XR ABDOMEN 1 VIEW 04/16/2014 7:26 AM HISTORY: [...] - 11/24/2018 6:38 AM PDT MACKENZIE HARTLEYXR ABDOMEN 1 VIEW04/16/2014 | | 7:26 AM [...] 6:38 AM PDT MACKENZIE HARTLEYXR CHEST 1 VIEW04/16/2014 6:18 | | AM [...] | | | | | performed at [facility] [place];[address] | | | | | | [address];[place], [place] | | | | | | [address] | | | | + + + [...] EXTERNAL | | | | performed at [facility] [place];[address] | | LAB | | | | [address];[place] | | | | | | [address] | | | | + + + + + + | RED CELL | 4.48Comment: Testing | 3.70 - 5.10 | EXTERNAL | | | COUNT | performed at [facility] [place];[address] | M/uL | LAB | | | | [address];[place] | | | | | | [address] | | | | + + + + + + | Hgb | 10.5 (L)Comment: Testing | 11.3 - 15.5 | EXTERNAL | | | | performed at [facility] [place];[address] | g/dL | LAB | | | | [address];[place] | | | | | | [address] | | | | + + + + + + | Hematocrit, | 36.0Comment: Testing | 34.0 - 46.0 % | EXTERNAL | | | POC | performed at [facility] [place];[address] | | LAB | | | | [address];[place] | | | | | | [address] | | | | + + + + + + | MCV | 80.5Comment: Testing | 80.0 - 100.0 fl | EXTERNAL | | | | performed at [facility] [place];[address] | | LAB | | | | [address];[place] | | | | | | [address] | | | | + + + + + + | MCH | 23.5 (L)Comment: Testing | 27.0 - 34.0 pg | EXTERNAL | | | | performed at [facility] [place];[address] | | LAB | | | | [address];[place] | | | | | | [address] | | | | + + + + + + | MCHC | 29.1 (L)Comment: Testing | 32.0 - 35.5 | EXTERNAL | | | | performed at [facility] [place];888 | g/dL | LAB | | | | [address];[place] | | | | | | [address] | | | | + + + + + + | RDW-CV | 61.3 (H)Comment: Testing | 37 - 53 fl | EXTERNAL | | | | performed at [facility] [place];[address] | | LAB | | | | [address];[place] | | | | | | [address] | | | | + + + + + + | Platelet | 378Comment: Testing | 150 - 400 K/uL | EXTERNAL | | | Count | performed at [facility] [place];[address] | | LAB | | | Plasma | [address];[place] | | | | | | [address] | | | | + + + + + + | MPV | 9.5Comment: Testing | fl | EXTERNAL | | | | performed at [facility] [place];[address] | | LAB | | | | [address];[place] | | | | | | [address] | | | | + + + + + + | Differentia | MANUALComment: Testing | | EXTERNAL | | | l Type | performed at [facility] [place];[address] | | LAB | | | | [address];[place] | | | | | | [address] | | | | + + + + + + | Nucleated | 2 (H)Comment: Testing | /100WBC | EXTERNAL | | | Red Blood | performed at [facility] [place];[address] | | LAB | | | Cells | [address];[place] | | | | | | [address] | | | | + + + + + + | Segmented | 88Comment: Testing | % | EXTERNAL | | | Neutrophils | performed at [facility] [place];[address] | | LAB | | | Manual | [address];[place] | | | | | | [address] | | | | + + + + + + | % | 1Comment: Testing | % | EXTERNAL | | | Myelocytes | performed at [facility] [place];[address] | | LAB | | | | [address];[place] | | | | | | [address] | | | | + + + + + + | Lymphocytes | 6Comment: Testing | % | EXTERNAL | | | Manual | performed at [facility] [place];[address] | | LAB | | | | [address];[place] | | | | | | [address] | | | | + + + + + + | Monocytes | 5Comment: Testing | % | EXTERNAL | | | Manual | performed at [facility] [place];[address] | | LAB | | | | [address];[place] | | | | | | [address] | | | | + + + + + + | Absolute | 17.6 (H)Comment: Testing | 1.9 - 7.4 K/uL | EXTERNAL | | | Neutrophils | performed at [facility] [place];[address] | | LAB | | | | [address];[place] | | | | | | [address] | | | | + + + + + + | Absolute | 0.2 (H)Comment: Testing | K/uL | EXTERNAL | | | Myelocytes | performed at [facility];[address] | | LAB | | | | [address];[place] | | | | | | [address] | | | | + + + + + + | Absolute | 1.2Comment: Testing | 1.0 - 3.9 K/uL | EXTERNAL | | | Lymphocytes | performed at [facility];[address] | | LAB | | | | [address];[place] | | | | | | [address] | | | | + + + + + + | Absolute | 1.0 (H)Comment: Testing | 0 - 0.8 K/uL | EXTERNAL | | | Monocytes | performed at [facility];[address] | | LAB | | | | [address];[place] | | | | | | [address] | | | | + + + + + + | RBC | 1+Comment: | | EXTERNAL | | | Morphology | HYPO2+ANISO1+TARGET1+POI | | LAB | | | | K1+GIANT | | | | | | PLATELETSTesting | | | | | | performed at [facility];[address] | | | | | | [address];[place] | | | | | | [address] | | | | | |1+ | | | | | |POIK | | | | | |1+ | | | | | |GIANT PLATELETS | | | | | |Testing performed at [facility];[address];[place] [address] | | | | | | | [...] performed at [facility], [address] | | LAB | | | | [address], | | | | | | [place] [address] | | | | + + + [...] | LAB | | | | [facility];[address];[place] [address] | | | | + + + [...] performed at [facility], [address] | | LAB | | | | [address], | | | | | | [place] [address] | | | | + + + [...] | | | | | [place] [address] | | | | + + + + + + | K | 4.4Comment: Testing | 3.5 - 4.9 | EXTERNAL | | | | performed at [facility], [address] | mmol/L | LAB | | | | [address], | | | | | | [place] [address] | | | | + + + + + + | Cl | 106Comment: Testing | 99 - 109 mmol/L | EXTERNAL | | | | performed at [facility], [address] | | LAB | | | | [address], | | | | | | [place] [address] | | | | + + + + + + | CO2 | 32Comment: Testing | 23 - 32 mmol/L | EXTERNAL | | | | performed at [facility], [address] | | LAB | | | | [address], | | | | | | [place] [address] | | | | + + + + + + | Anion Gap | 12Comment: Testing | 5 - 20 mmol/L | EXTERNAL | | | | performed at [facility], [address] | | LAB | | | | [address], | | | | | | [place] [address] | | | | + + + + + + | Glucose, | 212 (H)Comment: Testing | 65 - 99 mg/dL | EXTERNAL | | | Fasting | performed at [facility], [address] | | LAB | | | | [address], | | | | | | [place] [address] | | | | + + + + + + | BUN | 20Comment: Testing | 8 - 25 mg/dL | EXTERNAL | | | | performed at [facility], [address] | | LAB | | | | [address], | | | | | | [place] [address] | | | | + + + + + + | Creatinine | 0.86Comment: Testing | 0.50 - 1.00 | EXTERNAL | | | | performed at [facility], [address] | mg/dL | LAB | | | | [address], | | | | | | [place] [address] | | | | + + + + + + | BUN/Creatin | 23Comment: Testing | | EXTERNAL | | | ine Ratio | performed at [facility], [address] | | LAB | | | | [address], | | | | | | [place] [address] | | | | + + + + + + | Calcium | 8.2 (L)Comment: Testing | 8.5 - 10.2 | EXTERNAL | | | | performed at [facility], [address] | mg/dL | LAB | | | | [address], | | | | | | [place] [address] | | | | + + + [...] Gertrude, | | | | | | [place] [address] | | | | + + + [...] EXTERNAL | | | | performed at [facility];[address] | mmol/L | LAB | | | | [address];[place], [place] | | | | | | [address] | | | | + + + [...] LAB | | | | performed at [facility];[address] | | | | | | [address] [facility];[place], [place] | | | | | | [address] | | | | + + + [...] EXTERNAL | | | | performed at [facility];[address] | mmol/L | LAB | | | | [address];[place], [place] | | | | | | [address] | | | | + + + [...] EXTERNAL | | | | performed at [facility];[address] | | LAB | | | | [address];[place], [place] | | | | | | [address] | | | | + + + [...] Conversion - 11/24/2018 6:38 AM PDT MACKENZIE ODILIAXR CHEST 1 VIEW04/15/2014 6:18 | | AM [...] | | | | | + + Lactic Acid (04/15/2014 4:34 AM PST) + + + + + + | Component | Value | Ref Range | Performed | Pathologist | | | | | At | Signature | + + + + + + | Lactate | 2.3 (H)Comment: Testing | 0.4 - 2.0 | EXTERNAL | | | | performed at [facility];[address] | mmol/L | LAB | | | | [address];[place], [place] | | | | | | [address] | | | | + + + [...] EXTERNAL | | | | performed at [facility];[address] | | LAB | | | | [address];[place] | | | | | | [address] | | | | + + + [...] | | | | | | ACUTE SC Testing | | | | | | performed at [facility];[address] | | | | | | [address];[place], [place] | | | | | | [address] | | | | + + + + + + + + | Specimen | + + | Blood specimen | | (specimen) | + + + +---------+ + + | Performing | Address | City/State/Zipcode | Phone Number | | Organization | | | | + +---------+ + + | EXTERNAL LAB | | | | + +---------+ + + Protime INR (04/15/2014 4:22 AM PST) + + + [...] | | | | | performed at [facility] | | | | | | [address];[place], [place] | | | | | | [address] | | | | + + + [...] EXTERNAL | | | | performed at [facility];8 | | LAB | | | | [address];[place] | | | | | | [address] | | | | + + + + + + | RED CELL | 4.49Comment: Testing | 3.70 - 5.10 | EXTERNAL | | | COUNT | performed at [facility];[address] | M/uL | LAB | | | | [address];[place] | | | | | | [address] | | | | + + + + + + | Hgb | 10.6 (L)Comment: Testing | 11.3 - 15.5 | EXTERNAL | | | | performed at [facility];888 | g/dL | LAB | | | | [address];[place] | | | | | | [address] | | | | + + + + + + | Hematocrit, | 36.1Comment: Testing | 34.0 - 46.0 % | EXTERNAL | | | POC | performed at [facility];[address] | | LAB | | | | [address];[place] | | | | | | [address] | | | | + + + + + + | MCV | 80.2Comment: Testing | 80.0 - 100.0 fl | EXTERNAL | | | | performed at [facility];[address] | | LAB | | | | [address];[place] | | | | | | [address] | | | | + + + + + + | MCH | 23.5 (L)Comment: Testing | 27.0 - 34.0 pg | EXTERNAL | | | | performed at [facility];[address] | | LAB | | | | [address];[place] | | | | | | [address] | | | | + + + + + + | MCHC | 29.3 (L)Comment: Testing | 32.0 - 35.5 | EXTERNAL | | | | performed at [facility];888 | g/dL | LAB | | | | [address];[place] | | | | | | [address] | | | | + + + + + + | RDW-CV | 60.8 (H)Comment: Testing | 37 - 53 fl | EXTERNAL | | | | performed at [facility];[address] | | LAB | | | | [address];[place] | | | | | | [address] | | | | + + + + + + | Platelet | 382Comment: Testing | 150 - 400 K/uL | EXTERNAL | | | Count | performed at [facility];[address] | | LAB | | | Plasma | [address];[place] | | | | | | [address] | | | | + + + + + + | MPV | 9.1Comment: Testing | fl | EXTERNAL | | | | performed at [facility];[address] | | LAB | | | | [address];[place] | | | | | | [address] | | | | + + + + + + | Differentia | MANUALComment: Testing | | EXTERNAL | | | l Type | performed at [facility];[address] | | LAB | | | | [address];[place] | | | | | | [address] | | | | + + + + + + | Nucleated | 2 (H)Comment: Testing | /100WBC | EXTERNAL | | | Red Blood | performed at [facility];[address] | | LAB | | | Cells | [address];[place] | | | | | | [address] | | | | + + + + + + | Segmented | 90Comment: Testing | % | EXTERNAL | | | Neutrophils | performed at [facility];[address] | | LAB | | | Manual | [address];[place] | | | | | | [address] | | | | + + + + + + | % Bands | 2Comment: Testing | % | EXTERNAL | | | | performed at [facility];[address] | | LAB | | | | [address];[place] | | | | | | [address] | | | | + + + + + + | Lymphocytes | 8Comment: Testing | % | EXTERNAL | | | Manual | performed at [facility];[address] | | LAB | | | | [address];[place] | | | | | | [address] | | | | + + + + + + | Absolute | 20.5 (H)Comment: Testing | 1.9 - 7.4 K/uL | EXTERNAL | | | Neutrophils | performed at [facility];[address] | | LAB | | | | [address];[place] | | | | | | [address] | | | | + + + + + + | Bands | 0.5 (H)Comment: Testing | 0 - 0.2 K/uL | EXTERNAL | | | Manual | performed at [facility];[address] | | LAB | | | | [address];[place] | | | | | | [address] | | | | + + + + + + | Absolute | 1.8Comment: Testing | 1.0 - 3.9 K/uL | EXTERNAL | | | Lymphocytes | performed at [facility];[address] | | LAB | | | | [address];[place] | | | | | | [address] | | | | + + + + + + | Platelet | ADEQUATEComment: Testing | | EXTERNAL | | | Estimate | performed at [facility];[address] | | LAB | | | | [address];[place] | | | | | | [address] | | | | + + + + + + | RBC | 2+Comment: | | EXTERNAL | | | Morphology | ANISO1+HYPO1+ELLIPTO1+PO | | LAB | | | | IK2+TARGETNORMAL PLT | | | | | | MORPHTesting performed | | | | | | at [facility];[address];[place] [address] | | | | | |ELLIPTO | | | | | |1+ | | | | | |POIK | | | | | |2+ | | | | | |TARGET | | | | | |NORMAL PLT MORPH | | | | | |Testing performed at [facility];[address] [facility];[place] [address] | | | | | | | [...] EXTERNAL | | | | performed at [facility];[address] | | LAB | | | | [address];[place] | | | | | | [address] [...] | | LAB | | | | [facility];[address] [place] [address] | | | | | | [address];[place] [address] | | | | + + + [...] EXTERNAL | | | | performed at [facility];[address] | | LAB | | | | [address];[place] | | | | | | [address] | | | | + + + [...] EXTERNAL | | | | performed at [facility];[address] | | LAB | | | | [address];[place], [place] | | | | | | [address] | | | | + + + [...] | | | | | performed at [facility] | | | | | | [facility], [place] | | | | | | [address] | | | | + + + [...] EXTERNAL | | | | performed at [facility];[address] | mmol/L | LAB | | | | [address];[place] | | | | | | [address] | | | | + + + + + + | K | 3.7Comment: Testing | 3.5 - 4.9 | EXTERNAL | | | | performed at [facility];[address] | mmol/L | LAB | | | | [address];[place] | | | | | | [address] | | | | + + + + + + | Cl | 109Comment: Testing | 99 - 109 mmol/L | EXTERNAL | | | | performed at [facility];[address] | | LAB | | | | [address];[place] | | | | | | [address] | | | | + + + + + + | CO2 | 28Comment: Testing | 23 - 32 mmol/L | EXTERNAL | | | | performed at [facility];[address] | | LAB | | | | [address];[place] | | | | | | [address] | | | | + + + + + + | Anion Gap | 14Comment: Testing | 5 - 20 mmol/L | EXTERNAL | | | | performed at [facility];[address] | | LAB | | | | [address];[place] | | | | | | [address] | | | | + + + + + + | Glucose, | 99Comment: Testing | 65 - 99 mg/dL | EXTERNAL | | | Fasting | performed at [facility];[address] | | LAB | | | | [address];[place] | | | | | | [address] | | | | + + + + + + | BUN | 22Comment: Testing | 8 - 25 mg/dL | EXTERNAL | | | | performed at [facility];[address] | | LAB | | | | [address];[place] | | | | | | [address] | | | | + + + + + + | Creatinine | 0.98Comment: Testing | 0.50 - 1.00 | EXTERNAL | | | | performed at [facility];[address] | mg/dL | LAB | | | | [address];[place] | | | | | | [address] | | | | + + + + + + | BUN/Creatin | 23Comment: Testing | | EXTERNAL | | | ine Ratio | performed at [facility];[address] | | LAB | | | | [address];[place] | | | | | | [address] | | | | + + + + + + | Calcium | 8.4 (L)Comment: Testing | 8.5 - 10.2 | EXTERNAL | | | | performed at [facility];[address] | mg/dL | LAB | | | | [address];[place] | | | | | | [address] | | | | + + + [...] | | | | | | at [facility];[address] [place] [address] | | | | | | Blvd;[place] [address] | | | | + + + [...] | | | | | | [place] [id number] AT 1844, | | | | | | VAPTesting performed at | | | | | | [facility];[address];[place] [address] | | | | + + + [...] EXTERNAL | | | | performed at [facility];[address] | mmol/L | LAB | | | | [address];[place], [place] | | | | | | [address] | | | | + + + [...] EXTERNAL | | | | performed at [facility];[address] | | LAB | | | | [address];[place], [place] | | | | | | [address] | | | | + + + [...] EXTERNAL | | | | performed at [facility] | | LAB | | | | [address];[place], [place] | | | | | | [address] | | | | + + + [...] | EXTERNAL LAB | | performed at [facility];[address] [place] [address];[place] [address] 027 NAP1 BI | | | 027 NAP1 BI PRESUMPTIVE NEGATIVE | | | Detection of 027 NAP1 BI strains of C. difficile is presumptive and | | | for epidemiological purposes and not intended to guide or monitor | | | treatment for C. difficile infections. Testing performed at [facility];[address] | | | [facility];[place] [address] | | + + + + +---------+ [...] 6:38 AM PDT MACKENZIE HARTLEYXR CHEST 1 VIEW04/14/2014 6:16 | | AM [...] | | | | | performed at [facility] | | | | | | [address] [facility];[place], [place] | | | | | | [address] | | | | + + + [...] performed at [facility], [address] | | LAB | | | | [address], | | | | | | [place] [address] | | | | + + + + + + | RED CELL | 4.43Comment: Testing | 3.70 - 5.10 | EXTERNAL | | | COUNT | performed at [facility], [address] | M/uL | LAB | | | | [address], | | | | | | [place] [address] | | | | + + + + + + | Hgb | 10.8 (L)Comment: Testing | 11.3 - 15.5 | EXTERNAL | | | | performed at [facility], [address] | g/dL | LAB | | | | [address], | | | | | | [place] [address] | | | | + + + + + + | Hematocrit, | 36.2Comment: Testing | 34.0 - 46.0 % | EXTERNAL | | | POC | performed at [facility], [address] | | LAB | | | | [address], | | | | | | [place] [address] | | | | + + + + + + | MCV | 81.7Comment: Testing | 80.0 - 100.0 fl | EXTERNAL | | | | performed at [facility], [address] | | LAB | | | | [address], | | | | | | [place] [address] | | | | + + + + + + | MCH | 24.5 (L)Comment: Testing | 27.0 - 34.0 pg | EXTERNAL | | | | performed at [facility], [address] | | LAB | | | | [address], | | | | | | [place] [address] | | | | + + + + + + | MCHC | 29.9 (L)Comment: Testing | 32.0 - 35.5 | EXTERNAL | | | | performed at [facility], [address] | g/dL | LAB | | | | [address], | | | | | | [place] [address] | | | | + + + + + + | RDW-CV | 63.0 (H)Comment: Testing | 37 - 53 fl | EXTERNAL | | | | performed at [facility], [address] | | LAB | | | | [address], | | | | | | [place] [address] | | | | + + + + + + | Platelet | 325Comment: Testing | 150 - 400 K/uL | EXTERNAL | | | Count | performed at [facility], [address] | | LAB | | | Plasma | [address], | | | | | | [place] [address] | | | | + + + + + + | MPV | 9.5Comment: Testing | fl | EXTERNAL | | | | performed at [facility], [address] | | LAB | | | | [address], | | | | | | [place] [address] | | | | + + + + + + | Differentia | MANUALComment: Testing | | EXTERNAL | | | l Type | performed at [facility], [address] | | LAB | | | | [address], | | | | | | [place], [place] [address] | | | | + + + + + + | Segmented | 86Comment: Testing | % | EXTERNAL | | | Neutrophils | performed at [facility], [address] | | LAB | | | Manual | [address], | | | | | | [place] [address] | | | | + + + + + + | % Bands | 2Comment: Testing | % | EXTERNAL | | | | performed at [facility], [address] | | LAB | | | | [address], | | | | | | [place], [place] [address] | | | | + + + + + + | Lymphocytes | 5Comment: Testing | % | EXTERNAL | | | Manual | performed at [facility], [address] | | LAB | | | | [address], | | | | | | [place] [address] | | | | + + + + + + | Monocytes | 7Comment: Testing | % | EXTERNAL | | | Manual | performed at [facility], [address] | | LAB | | | | [address], | | | | | | [place] [address] | | | | + + + + + + | Absolute | 17.3 (H)Comment: Testing | 1.9 - 7.4 K/uL | EXTERNAL | | | Neutrophils | performed at [facility], [address] | | LAB | | | | [address], | | | | | | [place] [address] | | | | + + + + + + | Bands | 0.4 (H)Comment: Testing | 0 - 0.2 K/uL | EXTERNAL | | | Manual | performed at [facility], [address] | | LAB | | | | [address], | | | | | | [place] [address] | | | | + + + + + + | Absolute | 1.0Comment: Testing | 1.0 - 3.9 K/uL | EXTERNAL | | | Lymphocytes | performed at [facility], [address] | | LAB | | | [address], | | | | | | [place] [address] | | | | + + + + + + | Absolute | 1.4 (H)Comment: Testing | 0 - 0.8 K/uL | EXTERNAL | | | Monocytes | performed at [facility], [address] | | LAB | | | | [address], | | | | | | [place] [address] | | | | + + + + + + | RBC | NORMAL RBC MORPHComment: | | EXTERNAL | | | Morphology | NORMAL PLT MORPHTesting | | LAB | | | | performed at [facility], [address] | | | | | | [address], | | | | | | [place] [address] | | | | + + + [...] EXTERNAL | | | | performed at [facility];[address] | | LAB | | | | [address];[place], [place] | | | | | | [address] | | | | + + + [...] EXTERNAL | | | | performed at [facility];[address] | | LAB | | | | [address];[place] | | | | | | [address] | | | | + + + [...] EXTERNAL | | | | performed at [facility];[address] | mmol/L | LAB | | | | [address];[place] | | | | | | [address] | | | | + + + + + + | K | 3.6Comment: Testing | 3.5 - 4.9 | EXTERNAL | | | | performed at [facility];[address] | mmol/L | LAB | | | | [address];[place] | | | | | | [address] | | | | + + + + + + | Cl | 109Comment: Testing | 99 - 109 mmol/L | EXTERNAL | | | | performed at [facility];[address] | | LAB | | | | [address];[place] | | | | | | [address] | | | | + + + + + + | CO2 | 31Comment: Testing | 23 - 32 mmol/L | EXTERNAL | | | | performed at [facility];[address] | | LAB | | | | [address];[place] | | | | | | [address] | | | | + + + + + + | Anion Gap | 11Comment: Testing | 5 - 20 mmol/L | EXTERNAL | | | | performed at [facility];[address] | | LAB | | | | [address];[place] | | | | | | [address] | | | | + + + + + + | Glucose, | 85Comment: Testing | 65 - 99 mg/dL | EXTERNAL | | | Fasting | performed at [facility];[address] | | LAB | | | | [address];[place] | | | | | | [address] | | | | + + + + + + | BUN | 18Comment: Testing | 8 - 25 mg/dL | EXTERNAL | | | | performed at [facility];[address] | | LAB | | | | [address];[place] | | | | | | [address] | | | | + + + + + + | Creatinine | 0.89Comment: Testing | 0.50 - 1.00 | EXTERNAL | | | | performed at [facility];[address] | mg/dL | LAB | | | | [address];[place] | | | | | | [address] | | | | + + + + + + | BUN/Creatin | 20Comment: Testing | | EXTERNAL | | | ine Ratio | performed at [facility];[address] | | LAB | | | | [address];[place] | | | | | | [address] | | | | + + + + + + | Calcium | 8.0 (L)Comment: Testing | 8.5 - 10.2 | EXTERNAL | | | | performed at [facility];888 | mg/dL | LAB | | | | [address] [facility];[place], [place] | | | | | | [address] | | | | + + + [...] | | | | | | at [facility];[address];[place] [address] | | | | + + + [...] EXTERNAL | | | | performed at [facility];888 | mmol/L | LAB | | | | [address];[place], [place] | | | | | | [address] | | | | + + + [...] EXTERNAL | | | | performed at [facility];[address] | | LAB | | | [address];[place], [place] | | | | | | [address] | | | | + + + [...] EXTERNAL | | | | performed at [facility];[address] | | LAB | | | | [address];[place], [place] | | | | | | [address] | | | | + + + [...] | EXTERNAL LAB | | performed at [facility];[address] [place] [address];[place] [address] Pneumocystis Smear, | | | DFA ACCESSION NO. | | | [id number] SPECIMEN SOURCE SPUTUM | | | RESULT NO PNEUMOCYSTIS SEEN | | | BY DIRECT | | | FLUORESCENT ANTIBODY STAIN Testing performed at [facility] | | | [place], [address], [facility][note 3] [id number] PNEMOCYSTIS FA,STATUS | | | REPORT STATUS FINAL 04/15/2014 | | | Testing performed at [facility], [address], [place] | | | [place] [address] | | + + + + +---------+ [...] LAB | | | | performed at [facility];[address];[place], [place] | | | | | | [address] | | | | + + + [...] EXTERNAL | | | | performed at [facility];[address] | | LAB | | | | [address];[place] | | | | | | [address] | | | | + + [...] LAB | | | | performed at [facility] | | | | | | [address];[place] | | | | | | [address] | | | | + + + [...] | | | | | performed at [facility];[address] | | | | | | [facility];[place], [place] | | | | | | [address] | | | | + + + [...] Conversion - 11/24/2018 6:38 AM PDT MACKENZIE ODILIAXR CHEST 1 VIEW04/13/2014 7:10 | | AM [...] | | | + + External Lab: RAPHAEL (04/13/2014 6:40 AM PST) + + + + + + | Component | Value | Ref Range | Performed | Pathologist | | | | | At | Signature | + + + + + + | WBC | 21.0 (H)Comment: Testing | 3.8 - 11.0 K/uL | EXTERNAL | | | | performed at [facility];[address] | | LAB | | | | [address];[place] | | | | | | [address] | | | | + + + + + + | RED CELL | 4.14Comment: Testing | 3.70 - 5.10 | EXTERNAL | | | COUNT | performed at [facility];[address] | M/uL | LAB | | | | [address];[place] | | | | | | [address] | | | | + + + + + + | Hgb | 10.0 (L)Comment: Testing | 11.3 - 15.5 | EXTERNAL | | | | performed at [facility];888 | g/dL | LAB | | | | [address];[place] | | | | | | [address] | | | | + + + + + + | Hematocrit, | 32.7 (L)Comment: Testing | 34.0 - 46.0 % | EXTERNAL | | | POC | performed at [facility];[address] | | LAB | | | | [address];[place] | | | | | | [address] | | | | + + + + + + | MCV | 79.1 (L)Comment: Testing | 80.0 - 100.0 fl | EXTERNAL | | | | performed at [facility];[address] | | LAB | | | | [address];[place] | | | | | | [address] | | | | + + + + + + | MCH | 24.3 (L)Comment: Testing | 27.0 - 34.0 pg | EXTERNAL | | | | performed at [facility];[address] | | LAB | | | | [address];[place] | | | | | | [address] | | | | + + + + + + | MCHC | 30.7 (L)Comment: Testing | 32.0 - 35.5 | EXTERNAL | | | | performed at [facility];888 | g/dL | LAB | | | | [address];[place] | | | | | | [address] | | | | + + + + + + | RDW-CV | 60.8 (H)Comment: Testing | 37 - 53 fl | EXTERNAL | | | | performed at [facility];888 | | LAB | | | | [address];[place] | | | | | | [address] | | | | + + + + + + | Platelet | 281Comment: Testing | 150 - 400 K/uL | EXTERNAL | | | Count | performed at [facility];888 | | LAB | | | Plasma | [address];[place] | | | | | | [address] | | | | + + + + + + | MPV | 9.1Comment: Testing | fl | EXTERNAL | | | | performed at [facility];[address] | | LAB | | | | [address];[place] | | | | | | [address] | | | | + + + + + + | Differentia | MANUALComment: Testing | | EXTERNAL | | | l Type | performed at [facility];[address] | | LAB | | | | [address];[place] | | | | | | [address] | | | | + + + + + + | Nucleated | 1 (H)Comment: Testing | /100WBC | EXTERNAL | | | Red Blood | performed at [facility];888 | | LAB | | | Cells | [address];[place] | | | | | | [address] | | | | + + + + + + | Segmented | 91Comment: Testing | % | EXTERNAL | | | Neutrophils | performed at [facility];888 | | LAB | | | Manual | [address];[place] | | | | | | [address] | | | | + + + + + + | Lymphocytes | 6Comment: Testing | % | EXTERNAL | | | Manual | performed at [facility];[address] | | LAB | | | | [address];[place] | | | | | | [address] | | | | + + + + + + | Monocytes | 3Comment: Testing | % | EXTERNAL | | | Manual | performed at [facility];888 | | LAB | | | | [address];[place] | | | | | | [address] | | | | + + + + + + | Absolute | 19.1 (H)Comment: Testing | 1.9 - 7.4 K/uL | EXTERNAL | | | Neutrophils | performed at [facility];888 | | LAB | | | | [address];[place] | | | | | | [address] | | | | + + + + + + | Absolute | 1.3Comment: Testing | 1.0 - 3.9 K/uL | EXTERNAL | | | Lymphocytes | performed at [facility];888 | | LAB | | | | [address];[place] | | | | | | [address] | | | | + + + + + + | Absolute | 0.6Comment: Testing | 0 - 0.8 K/uL | EXTERNAL | | | Monocytes | performed at [facility];888 | | LAB | | | | [address];[place] | | | | | | [address] | | | | + + + + + + | Platelet | ADEQUATEComment: Testing | | EXTERNAL | | | Estimate | performed at [facility];888 | | LAB | | | | [address];[place] | | | | | | [address] | | | | + + + + + + | RBC | 3+Comment: | | EXTERNAL | | | Morphology | ANISO1+MACRO1+MICRO1+HYP | | LAB | | | | O1+POLY2+TARGET1+ACANTHO | | | | | | Testing performed at | | | | | | [facility];[address];[place] [address] | | | | | |MICRO | | | | | |1+ | | | | | |HYPO | | | | | |1+ | | | | | |POLY | | | | | |2+ | | | | | |TARGET | | | | | |1+ | | | | | |ACANTHO | | | | | |Testing performed at [facility];[address];[place] [address] | | | | | | | [...] EXTERNAL | | | | performed at [facility] | | LAB | | | | [address];[place], [place] | | | | | | [address] | | | | + + + [...] | | | | | | at [facility];[address] [place] [address] | | | | | | [facility];[place] [address] | | | | + + + [...] EXTERNAL | | | | performed at [facility];888 | mmol/L | LAB | | | | [address];[place] | | | | | | [address] | | | | + + + + + + | K | 5.4 (H)Comment: SLT | 3.5 - 4.9 | EXTERNAL | | | | HEMOLYSISTesting | mmol/L | LAB | | | | performed at [facility];[address] | | | | | | [address];[place] | | | | | | [address] | | | | + + + + + + | Cl | 107Comment: Testing | 99 - 109 mmol/L | EXTERNAL | | | | performed at [facility];[address] | | LAB | | | | [address];[place] | | | | | | [address] | | | | + + + + + + | CO2 | 24Comment: Testing | 23 - 32 mmol/L | EXTERNAL | | | | performed at [facility];[address] | | LAB | | | | [address];[place] | | | | | | [address] | | | | + + + + + + | Anion Gap | 15Comment: Testing | 5 - 20 mmol/L | EXTERNAL | | | | performed at [facility];[address] | | LAB | | | | [address];[place] | | | | | | [address] | | | | + + + + + + | Glucose, | 94Comment: Testing | 65 - 99 mg/dL | EXTERNAL | | | Fasting | performed at [facility];[address] | | LAB | | | | [address];[place] | | | | | | [address] | | | | + + + + + + | BUN | 14Comment: Testing | 8 - 25 mg/dL | EXTERNAL | | | | performed at [facility];[address] | | LAB | | | | [address];[place] | | | | | | [address] | | | | + + + + + + | Creatinine | 0.72Comment: Testing | 0.50 - 1.00 | EXTERNAL | | | | performed at [facility];888 | mg/dL | LAB | | | | [address];[place] | | | | | | [address] | | | | + + + + + + | BUN/Creatin | 19Comment: Testing | | EXTERNAL | | | ine Ratio | performed at [facility];888 | | LAB | | | | [address];[place] | | | | | | [address] | | | | + + + + + + | Calcium | 7.3 (L)Comment: Testing | 8.5 - 10.2 | EXTERNAL | | | | performed at [facility];888 | mg/dL | LAB | | | | [address];[place] | | | | | | [address] | | | | + + + [...] | | | | | | at [facility];[address];[place] [address] | | | | + + + [...] HAND | | | Testing performed at [facility];[address] | | | [facility];[place] [address] CULTURE | | | NO GROWTH | | | Testing performed at [facility], [address], [place] | | | [address] | | + + + + +---------+ [...] at | | | | | | [facility];[address] [place] [address] | | | | | | [facility];[place] [address] | | | | + + + [...] | | | | | performed at [facility] | | | | | | [address];[place], [place] | | | | | | [address] | | | | + + + [...] EXTERNAL | | | | performed at [facility];888 | | LAB | | | | [address];[place] | | | | | | [address] | | | | + + + + + + | RED CELL | 4.24Comment: Testing | 3.70 - 5.10 | EXTERNAL | | | COUNT | performed at [facility];888 | M/uL | LAB | | | | [address];[place] | | | | | | [address] | | | | + + + + + + | Hgb | 10.3 (L)Comment: Testing | 11.3 - 15.5 | EXTERNAL | | | | performed at [facility];888 | g/dL | LAB | | | | [address];[place] | | | | | | [address] | | | | + + + + + + | Hematocrit, | 33.3 (L)Comment: Testing | 34.0 - 46.0 % | EXTERNAL | | | POC | performed at [facility];[address] | | LAB | | | | [address];[place] | | | | | | [address] | | | | + + + + + + | MCV | 78.6 (L)Comment: Testing | 80.0 - 100.0 fl | EXTERNAL | | | | performed at [facility];[address] | | LAB | | | | [address];[place] | | | | | | [address] | | | | + + + + + + | MCH | 24.2 (L)Comment: Testing | 27.0 - 34.0 pg | EXTERNAL | | | | performed at [facility];[address] | | LAB | | | | [address];[place] | | | | | | [address] | | | | + + + + + + | MCHC | 30.8 (L)Comment: Testing | 32.0 - 35.5 | EXTERNAL | | | | performed at [facility];888 | g/dL | LAB | | | | [address];[place] | | | | | | [address] | | | | + + + + + + | RDW-CV | 61.7 (H)Comment: Testing | 37 - 53 fl | EXTERNAL | | | | performed at [facility];[address] | | LAB | | | | [address];[place] | | | | | | [address] | | | | + + + + + + | Platelet | 283Comment: Testing | 150 - 400 K/uL | EXTERNAL | | | Count | performed at [facility];888 | | LAB | | | Plasma | [address];[place] | | | | | | [address] | | | | + + + + + + | MPV | 9.0Comment: Testing | fl | EXTERNAL | | | | performed at [facility];[address] | | LAB | | | | [address];[place] | | | | | | [address] | | | | + + + + + + | Differentia | MANUALComment: Testing | | EXTERNAL | | | l Type | performed at [facility];[address] | | LAB | | | | [address];[place] | | | | | | [address] | | | | + + + + + + | Nucleated | 3 (H)Comment: Testing | /100WBC | EXTERNAL | | | Red Blood | performed at [facility];888 | | LAB | | | Cells | [address];[place] | | | | | | [address] | | | | + + + + + + | Segmented | 91Comment: Testing | % | EXTERNAL | | | Neutrophils | performed at [facility];[address] | | LAB | | | Manual | [address];[place] | | | | | | [address] | | | | + + + + + + | % Bands | 2Comment: Testing | % | EXTERNAL | | | | performed at [facility];[address] | | LAB | | | | [address];[place] | | | | | | [address] | | | | + + + + + + | Lymphocytes | 2Comment: Testing | % | EXTERNAL | | | Manual | performed at [facility];888 | | LAB | | | | [address];[place] | | | | | | [address] | | | | + + + + + + | % Atypical | 2Comment: Testing | % | EXTERNAL | | | Lymphocytes | performed at [facility];888 | | LAB | | | | [address];[place] | | | | | | [address] | | | | + + + + + + | Monocytes | 3Comment: Testing | % | EXTERNAL | | | Manual | performed at [facility];888 | | LAB | | | | [address];[place] | | | | | | [address] | | | | + + + + + + | Absolute | 16.9 (H)Comment: Testing | 1.9 - 7.4 K/uL | EXTERNAL | | | Neutrophils | performed at [facility];888 | | LAB | | | | [address];[place] | | | | | | [address] | | | | + + + + + + | Bands | 0.4 (H)Comment: Testing | 0 - 0.2 K/uL | EXTERNAL | | | Manual | performed at [facility];888 | | LAB | | | | [address];[place] | | | | | | [address] | | | | + + + + + + | Absolute | 0.4 (L)Comment: Testing | 1.0 - 3.9 K/uL | EXTERNAL | | | Lymphocytes | performed at [facility];[address] | | LAB | | | | [address];[place] | | | | | | [address] | | | | + + + + + + | Absolute | 0.4 (H)Comment: Testing | K/uL | EXTERNAL | | | Atypical | performed at [facility];888 | | LAB | | | Lymphocytes | [address];[place] | | | | | | [address] | | | | + + + + + + | Absolute | 0.6Comment: Testing | 0 - 0.8 K/uL | EXTERNAL | | | Monocytes | performed at [facility];[address] | | LAB | | | | [address];[place] | | | | | | [address] | | | | + + + + + + | Platelet | ADEQUATEComment: Testing | | EXTERNAL | | | Estimate | performed at [facility];[address] | | LAB | | | | [address];[place] | | | | | | [address] | | | | + + + + + + | RBC | 1+Comment: | | EXTERNAL | | | Morphology | ANISO1+POIK2+HYPO1+TARGE | | LAB | | | | TNORMAL PLT MORPHTesting | | | | | | performed at [facility];88 | | | | | | [facility];[place], [place] | | | | | | [address] | | | | | |HYPO | | | | | |1+ | | | | | |TARGET | | | | | |NORMAL PLT MORPH | | | | | |Testing performed at [facility];[address] [place] [address];[place] [address] | | | | | | | [...] EXTERNAL | | | | performed at [facility];888 | mmol/L | LAB | | | | [address];[place] | | | | | | [address] | | | | + + + + + + | K | 4.1Comment: SPECIMEN | 3.5 - 4.9 | EXTERNAL | | | | SLIGHTLY | mmol/L | LAB | | | | HEMOLYZEDTesting | | | | | | performed at [facility];[address] | | | | | | [address];[place] | | | | | | [address] | | | | + + + + + + | Cl | 105Comment: Testing | 99 - 109 mmol/L | EXTERNAL | | | | performed at [facility];[address] | | LAB | | | | [address];[place] | | | | | | [address] | | | | + + + + + + | CO2 | 24Comment: Testing | 23 - 32 mmol/L | EXTERNAL | | | | performed at [facility];[address] | | LAB | | | | [address];[place] | | | | | | [address] | | | | + + + + + + | Anion Gap | 15Comment: Testing | 5 - 20 mmol/L | EXTERNAL | | | | performed at [facility];[address] | | LAB | | | | [address];[place] | | | | | | [address] | | | | + + + + + + | Glucose, | 137 (H)Comment: Testing | 65 - 99 mg/dL | EXTERNAL | | | Fasting | performed at [facility];[address] | | LAB | | | | [address];[place] | | | | | | [address] | | | | + + + + + + | BUN | 15Comment: Testing | 8 - 25 mg/dL | EXTERNAL | | | | performed at [facility];[address] | | LAB | | | | [address];[place] | | | | | | [address] | | | | + + + + + + | Creatinine | 0.96Comment: Testing | 0.50 - 1.00 | EXTERNAL | | | | performed at [facility];888 | mg/dL | LAB | | | | [address];[place] | | | | | | [address] | | | | + + + + + + | BUN/Creatin | 15Comment: Testing | | EXTERNAL | | | ine Ratio | performed at [facility];888 | | LAB | | | | [address];[place] | | | | | | [address] | | | | + + + + + + | Calcium | 7.5 (L)Comment: Testing | 8.5 - 10.2 | EXTERNAL | | | | performed at [facility];888 | mg/dL | LAB | | | | [address];[place] | | | | | | [address] | | | | + + + + + + | Protein, | 5.2 (L)Comment: Testing | 6.3 - 8.2 g/dL | EXTERNAL | | | Total | performed at [facility];[address] | | LAB | | | | [address];[place] | | | | | | [address] | | | | + + + + + + | Albumin | 1.6 (L)Comment: Testing | 3.6 - 5.0 g/dL | EXTERNAL | | | | performed at [facility];[address] | | LAB | | | | [address];[place] | | | | | | [address] | | | | + + + + + + | Globulin | 3.7Comment: Testing | 1.3 - 4.9 g/dL | EXTERNAL | | | | performed at [facility];[address] | | LAB | | | | [address];[place] | | | | | | [address] | | | | + + + + + + | A/G Ratio | 0.4 (L)Comment: Testing | 1.0 - 2.4 | EXTERNAL | | | | performed at [facility];[address] | | LAB | | | | [address];[place] | | | | | | [address] | | | | + + + + + + | Bilirubin | 0.3Comment: Testing | 0.1 - 1.5 mg/dL | EXTERNAL | | | Total | performed at [facility];[address] | | LAB | | | | [address];[place] | | | | | | [address] | | | | + + + + + + | ALP, | 86Comment: Testing | 35 - 115 U/L | EXTERNAL | | | External | performed at [facility];[address] | | LAB | | | | [address];[place] | | | | | | [address] | | | | + + + + + + | AST | 55 (H)Comment: SPECIMEN | 10 - 45 U/L | EXTERNAL | | | | SLIGHTLY | | LAB | | | | HEMOLYZEDTesting | | | | | | performed at [facility];[address] | | | | | | [address];[place] | | | | | | [address] | | | | + + + + + + | ALT | 18Comment: Testing | 10 - 65 U/L | EXTERNAL | | | | performed at [facility];[address] | | LAB | | | | [address];[place] | | | | | | [address] | | | | + + + [...] | | | | | | at [facility];[address] [facility] | | | | | | Blvd;[place] [address] | | | | + + + [...] RHAND | | | Testing performed at [facility];888 | | | [address] [facility];[place] [address] CULTURE | | | NO GROWTH | | | Testing performed at [facility], [address] [facility], [place], [place] | | | [address] | | + + + + +---------+ [...] Conversion - 11/24/2018 6:38 AM PDT MACKENZIE HARTLEY89 yearsXR CHEST 1 | | VIEW04/12/2014 5:13 [...] | | | | + + MRSA NAAT (04/12/2014 4:58 PM PST) + + | Specimen | + + | | + + + + + | Narrative | Performed At | + + + | [facility](NOSE) | EXTERNAL LAB | | Testing performed at [facility];[address] [place] [address];[place] [address] MRSA PCR | | | NEGATIVE Testing performed at | | | [facility];[address] [place] [address];[place] [address] | | + + + + +---------+ [...] | | | | | [place] [address] | | | | + + + + + + | Clarity | CLEARComment: Testing | | EXTERNAL | | | | performed at [facility], [address] | | LAB | | | | [address], | | | | | | [place] [address] | | | | + + + + + + | Specific | 1.021Comment: Testing | 1.002 - 1.030 | EXTERNAL | | | [place] | performed at [facility], [address] | | LAB | | | | [address], | | | | | | [place] [address] | | | | + + + + + + | Leukocyte | NEGATIVEComment: Testing | | EXTERNAL | | | Esterase, | performed at [facility], [address] | | LAB | | | Urine | [address], | | | | | | [place] [address] | | | | + + + + + + | Nitrite, | NEGATIVEComment: Testing | | EXTERNAL | | | Urine | performed at [facility], [address] | | LAB | | | | [address], | | | | | | [place] [address] | | | | + + + + + + | Urobilinoge | 0.2Comment: Testing | mg/dL | EXTERNAL | | | n, Urine | performed at [facility], [address] | | LAB | | | [address], | | | | | | [place] [address] | | | | + + + + + + | Protein, | NEGATIVEComment: Testing | mg/dL | EXTERNAL | | | Urine | performed at [facility], [address] | | LAB | | | | [address], | | | | | | [place] [address] | | | | + + + + + + | pH, Urine | 6.0Comment: Testing | 5.0 - 8.0 | EXTERNAL | | | | performed at [facility], [address] | | LAB | | | | [address], | | | | | | [place] [address] | | | | + + + + + + | Blood, | NEGATIVEComment: Testing | | EXTERNAL | | | Urine | performed at [facility], [address] | | LAB | | | | [address], | | | | | | [place] [address] | | | | + + + + + + | Ketones | NEGATIVEComment: Testing | mg/dL | EXTERNAL | | | | performed at [facility], [address] | | LAB | | | | [address], | | | | | | [place] [address] | | | | + + + + + + | Bilirubin, | NEGATIVEComment: Testing | | EXTERNAL | | | Urine | performed at [facility], [address] | | LAB | | | | [address], | | | | | | [place] [address] | | | | + + + + + + | Glucose, | NEGATIVEComment: Testing | mg/dL | EXTERNAL | | | Urine | performed at [facility], [address] | | LAB | | | | [address], | | | | | | [place] [address] | | | | + + + [...] ALBICANSAbnormal | | | Testing performed at [facility], [address] [place], [place] | | | [address] | | + + + + +---------+ [...] (HCC) Atrial fibrillation | + + | Sepsis(995.91) Sepsis | + + | Acute systolic heart failure (HCC) Acute systolic heart failure | + + | Acute respiratory failure (HCC) Acute respiratory failure | + + | Aspiration pneumonia ([facility]) Pneumonitis due to inhalation of food or vomitus | + + | COPD (chronic obstructive pulmonary disease) ([facility]) Chronic airway obstruction, not | | elsewhere [...]
--- OUTSIDE RECORDS SUMMARY | ~2019-03-09 | XMS | Encounter Summary ---
Demographics + + + | Address | [address] | | | [place] [address] | + + + | Home Phone | | + + + | Preferred Language | Unknown | + + + | Marital Status | | + + + | Cheondoism Affiliation | Unknown | + + + [...] Team Providers + +------+ + | Care Sales And Marketing Executive Name | Role | Phone | + +------+ + PCP | Unavailable | + +------+ + Encounter Details +--------+ + + + + | Date | Type | Department | Care Team | Description | +--------+ + + + + | 03/01/ | Hospital | [facility] | Conversion | | | 2017 | Encounter | [facility] | Transaction, | | | | | CLINIC [address] | Provider Unknown | | | | | [place], [place] | | | | | | [phone] | (Fax) | | | | | [phone] | | | +--------+ + + + [...] | | | + + MRSA NAAT (03/01/2017 5:23 PM PST) + + | Specimen | + + | | + + + + + | Narrative | Performed At | + + + | [facility](NOSE) MRSA | EXTERNAL LAB | | PCR POSITIVE for MRSA by | | | PCRAbnormal Testing performed at [facility];[address] [place] [address];[place] [address] | | + + + + +---------+ [...] | | | performed at [facility];[address] | | | | | | [address];[place], [place] | | | | | | [address] [...] | | | | at [facility];[address] [place] [address] | | | | | | [facility];[place] [address] | | | | + + + [...]
--- OUTSIDE RECORDS SUMMARY | ~2019-03-09 | XMS | Encounter Summary ---
Demographics + + + | Address | [address] | | | [place] [address] | + + + | Home Phone [...] Author | [facility] | + + + | Organization | [facility] | + + + | Address | Unknown | + + + | Phone | Unavailable | + + + Support + + + + + | Name | Relationship | Address | Phone | + + + + + | Kole Willingham | [place] | [address] | | | | | [place], [place] | | | | | [address] | | + + + + + | Cami Sawyer | ECON | Unknown | | + + + + + Care Team Providers + +------+ + | Care Coal Equipment Operator Name | Role | Phone | [...] | | 2015 | | Center at [facility] [address] | [address] | | | | | Tomasz Menezes | [facility] | | | | | Mailcode: [place] | [place] [address] | | | | | [facility] and | [phone] | | | | | [place] [address] | | | | | | [place], [place] | | | | | | [address] | | | | | | [phone] | | | +--------+ + + + [...]
--- OUTSIDE RECORDS SUMMARY | ~2019-03-09 | XMS | Encounter Summary ---
Demographics + + + | Address | [address] | | | [place] [address] | + + + | Home Phone | | + + + | Preferred Language | Unknown | + + + | Marital Status | | + + + | Yazdanism Affiliation | Unknown | + + + | Race | Unknown | + + + | Ethnic Group | Unknown | + + + Author + + + | Author | [facility] | | | and [place] | + + + | Organization | [facility] | | [...] Team Providers + +------+ + | Care Lead Handler Name | Role | Phone | + +------+ + PCP | Unavailable | + +------+ + Encounter Details +--------+ + + + + | Date | Type | Department | Care Team | Description | +--------+ + + + + | 03/01/ | Hospital | [facility] | Gabriel Myrick | Anemia, unspecified | | 2017 - | Encounter | [facility] | MD Thor [address] | type; Current | | | | CARE FLOOR [address] | [address] | chronic use of | | 03/02/ | | [address] | [place] [address] | systemic steroids; | | 2017 | | [place], [place] | [phone] | Gastroesophageal | | | | [address] | | reflux disease | | | | [phone] | | without esophagitis; | | | [...] 1325 Date of Service: 03/02/17705 Status: Attested Hotel Valet Attendant: EDE Otto (Resident-Y2) Cosigner: Chace Benson MD [...] with the progress note of Dr. Jimenez. [facility] Service: Hospitalist Resident Discharge Summary Date [...] being seen by Dr. Krishna GI in [place]. Antonia he previously underwent a small bowel [...] on file. Follow up: Alireza Krishna MD [address], [address] [address] Call office for appointment. Medication [...] COURT PLACE - [place] - [address], [place] [address] metroNIDAZOLE 500 MG tablet Na sulfate-K sulfate-Mg sulf 17.5-3.13-1.6 GM/180ML Soln neomycin 500 MG tablet scopolamine 1 mg/3days patch These medications were sent to [facility] [address] [place], [place] - [address] [facility] [address] , [place] [address] acetaminophen 325 MG tablet lactobacillus granules potassium [...] Note by Gloria Hernandez RN at 03/02/17 5318 Author: Gloria Hernandez RN Service: (none) Author Type: Registered Nurse Filed: 03/02/17 1600 Date of Service: 03/02/17 1558 Status: Signed Hotel Valet Attendant: Gloria Hernandez RN (Registered Nurse) Discharge instructions given to pt and , all questions answered. VSS. Discharged jena e via private vehicle with . onver roshan Transaction, Provider Unknown - 03/02/2017 12:54 PM PST Case Management by Linh Perez RN at 03/02/17 6683 Author: Linh Perez RN Service: (none) Author Type: Registered Nurse Filed: 03/02/17 1257 Date of Service: 03/02/17 1254 Status: Signed Hotel Valet Attendant: Linh Perez RN (Registered Nurse) Pt to d/c home today with Lovenox. 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 Faxed script to RX pharmacy for russell check. Notified Marilin with [facility] of d/c. Faxed resumption order to [facility]. Family to trasnport pt home KAMRYN signed Nika Do Patel [facility] - 03/02/2017 12:47 PM PSTFormatting of this note might be different from the or iginal. Progress Notes by Do Hussein RPH at 03/02/17 599 Author: Do Hussein RPH Service: Pharmacy Author Type: Pharmacist Filed: 03/02/17 124 Date of Service: 03/02/171246 Status: Signed Hotel Valet Attendant: Do Hussein RPH (Pharmacist) INITIATION OF Parenteral Nutrition: Smita Willingham 61 y.o. female Height: Ht Readings from Last 1 Encounters: 03/02/17 1.727 m (5' 8") Weight: Wt Readings from Last 1 Encounters: 03/02/17 74.2 kg (163 lb 9.3 oz) Body Mass Index: Body mass index is 24.87 kg/m. [place] Body Weight: 63.9kg Adjusted Body Weight: 68.0kg Creatinine: CREATININE Date Value Ref Range Status 03/02/2017 0.7 0.50 - 1.00 mg/dL Final Estimated CrCl : Serum creatinine: 0.7 mg/dL 03/02/17 0405 Estimated creatinine clearance: 85.1 mL/min Estimated Needs: Basal Energy Expenditure (BEE): 1409kcal BEE x Major Non - Elective Surgery: = 0366-7279 Kcal needed per day Protein Requirements: Infection, Major Surgery, Cancer: 1.3 - 1.6 g/kg/day PN Line: Central Dextrose: 20% Amino Acids: 6% Lipid 20% 250 mL PN Goal Rate: 65 mL/hr PN Rate on Day 1: 25 mL/hr for 24 hours Amount of non-protein calories and grams of protein this provides: 1561 kcal + 93.6gm Rr=182; CO2=17. Initiating TPN with low Cl formula Pharmacy will continue to follow Pharmacist: DO HUSSEIN 03/02/2017 12:43 PM onversio n Transaction, Provider Unknown - 03/02/2017 11:58 AM PSTFormatting of this note might be di fferent from the original. Progress Notes by Honey Gamboa RD at 03/02/17 1825 Author: Honey Gamboa RD Service: (none) Author Type: Registered Dietitian Filed: 03/02/17 7535 Date of Service: 03/02/171157 Status: Signed Hotel Valet Attendant: Honey Gamboa RD (Registered Dietitian) 03/02/17 1136 Subjective Timepoint Admit (Consult: home TPN, wt loss) Pt c/o Pt with hx of Crohn's and chronic diarrhea. She states she has been on TPN for 3 we eks and she has not been eating. Pt currently feeling scared to eat, as she does not want i ncreased diarrhea. Diet Experience Home Nutrition Support TPN from [facility] in [place]: 275 g Dextrose, 90 g AA, 40 [...] Management by Linh Perez RN at 03/02/17 3554 Author: Linh Perez RN Service: (none) Author Type: Registered Nurse Filed: 03/02/17 1141 Date of Service: 03/02/17 1129 Status: Signed Hotel Valet Attendant: Linh Perez RN (Registered Nurse) 03/02/17 1100 [...] colostmy surgery on Tuesday. Pt lives in [place] with spouse. Pt is indep with all her ADL's. No use of home O 2, no HD. Pt does use a cane and walker as needed. Pt established on coumadin with [place] cou[facility]. Patient's PCP is: Dr Davina Cox/[facility]. Pt has appnt on 03/23 to est [...] Ryan Ariza RN at 03/02/17 1037 Author: yRan Ariza RN Service: (none) Author Type: Registered Nurse Filed: 03/02/17 1038 Date of Service: 03/02/17 1037 Status: Signed Hotel Valet Attendant: Ryan Ariza RN (Registered Nurse) Infection Prevention [...] 03/01/172257 Date of Service: 03/01/172257 Status: Signed Hotel Valet Attendant: Hamilton Drummond RPH (Pharmacist) Note ccl 76.4ml/min meds reviewed pharmacy will follow rdc 2258 onver rosahn Transaction, Provider Unknown - 03/01/2017 10:35 PM PST Nurse Progress Note by Mila Dolan RN at 03/01/172234 Author: Mila Dolan RN Service: (none) Author Type: Registered Nurse Filed: 03/02/17 0625 Date of Service: 03/01/172234 Status: Addendum Hotel Valet Attendant: Mila Dolan RN (Registered Nurse) Related Notes: Original Note by Mila Dolan RN (Registered Nurse) filed at 03/02/171 9 1 Pt transported to room 4439, via stretcher. [...] | | | | | performed at [facility];[address] | | | | | | [facility];[place], [place] | | | | | | [address] | | | | + + + [...] LAB | | | | performed at [facility], [address] | | | | | | [address] [place], | | | | | | [place] [address] | | | | + + + [...] | | | | | [place] [address] | | | | + + + [...] EXTERNAL | | | | performed at [facility], [address] | | LAB | | | | [address], | | | | | | [place] [address] | | | | + + + [...] EXTERNAL | | | | performed at [facility], [address] | | LAB | | | | [address], | | | | | | [place] [address] | | | | + + + [...] [address]ude, | | | | | | [place] [address] | | | | + + + [...] at | | | | | | [facility];[address] [place] [address] | | | | | | [facility];[place] [address] | | | | + + + [...]
--- OUTSIDE RECORDS SUMMARY | ~2019-03-09 | XMS | Encounter Summary ---
Demographics + + + | Address | [address] | | | [place] [address] | + + + | Home Phone [...] [place], [place] | | | | | [address] | | + + + + + | Cami Sawyer | ECON | Unknown | | + + + + + Care Team Providers + +------+ + | Care Band Splitter Name | Role | Phone | + [...] | | General Surgery at | PARTS ORDER AND STOCK CLERK [address] | | | | | [facility] [address] | [address] | | | | | [address] | [facility] [place] | | | | | Mailcode: [id number] | [address] | | | | | [place] | [phone] | | | | | [address] [facility] [place] | | | | | | [address] | | | | | | [phone] | | | +--------+ + + + [...]
--- OUTSIDE RECORDS SUMMARY | ~2019-03-09 | XMS | Encounter Summary ---
Demographics + + + | Address | [address] | | | [place] [address] | + + + | Home Phone | | + + + | Preferred Language | Unknown | + + + | Marital Status | | + + + | Yazidism Affiliation | NRP | + + + | Race | White | + + + | Ethnic Group | Not or | + + + Author + + + | Author | [facility] | + + + | Organization | [facility] | + + + | Address | Unknown | + + + | Phone | Unavailable | + + + Support + + + + + | Name | Relationship | Address | Phone | + + + + + | Kole Willingham | [place] | [address] | | | | | [place], [place] | | | | | [address] | | + + + + + | Cami Sawyer | ECON | Unknown | | + + + + + Care Team Providers + +------+ + | Care Front Man Name | Role | Phone | + +------+ + | Aren Rose DO | PCP | | + +------+ + Encounter Details +--------+ + + + + | Date | Type | Department | Care Team | Description | +--------+ + + + + | 03/15/ | Results | LAB REFERRED TESTS | Other, Faculty | | | 2011 | Only | [address] [facility] | [phone] | | | | | [address] | | | | | | [place], [place] | | | | | | [address] | | | +--------+ + + + [...] DEPT OF | [address] | [place], [place] | | | CARDIOLOGY | [address] | [address] | | + + + + + documented in this encounter Visit Diagnoses Not on filedocumented in this encounter"
--- OUTSIDE RECORDS SUMMARY | ~2019-03-09 | XMS | Encounter Summary ---
Demographics + + + | Address | [address] | | | [place] [address] | + + + | Home Phone [...] [place], [place] | | | | | [address] | | + + + + + | Cami Sawyer | ECON | Unknown | | + + + + + Care Team Providers + +------+ + | Care Doughnut Machine Operator Name | Role | Phone [...] | | | Located on the | [place], [place] | | | | | floor [address] | [address] | | | | | [address] | [phone] | | | | | [place], [place] | | | | | | [address] | | | +--------+---------+ + + + [...] [facility]. Hospital Course: Arterial thrombi: the patient was admitted to 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 At arrival to [facility] it was learned that she did [...] was agreed that the patient needed a coding consultant treatment and we settled o n remicade. [...] flagyl - which was continued [facility]. However, vanc/cefepime/flagyl was used instead for [...] 03/20 and an infectious work-up was [facility]. She was already receiving cipro and flagyl [...] Destination: Home Other Discharge Orders and Instructions supervisor grading your lovenox syringes at the [facility]. Go to the hospital on [...] forming. Please call your GI doctor in [facility] to arrange for your second infusion of [...] whether or not the INR is truly cash applications representative of anticoagulation. In patients with APLA [...] as of this encounter Progress Notes Xin uRst MD - 04/01/2012 10:33 PM PST3 Internal [...] I NR on Tuesday. KIRIT RUST MD [facility] DEPARTMENT: [id number]- [facility] PPV Place of Service:- Inpatient Date of Service: 04/01/2012 CSN: [id number] Suggested Modifier: GC Resident Involved: Yes Suggested CPT: 16031- Dishcarge < 30 min Electronically signed by [...] questions. Debi Oconnor MD GI/Hepatology Fellow Pager: [phone] INTERVAL HISTORY: MRI abdomen shows no abscess; [...] risk of emboli, I called Dr. Rodriges (senior information security analyst for her PCP) to coordinate f/u of [...] noted any additions above. KIRIT RUST MD [facility] DEPARTMENT: [id number]- [facility] PPV Place of Service:- Inpatient Date of Service: 03/31/2012 CSN: [id number] Suggested Modifier: GC Resident Involved: Yes Suggested CPT: 41320- Subsequent, Detailed/high complex, 35 min Davonte De [...] state: J Gastroenterol. 2004 Oct;39(10):948-54. PubMed PMID: [id number]. Consulted Heme for further studies on platelet [...] no insurance. Wanting to go home for Sharon. Nurse repor ts that she has admitted [...] notes for assessment and pl an. Nuñez [place], Sub-Eeg Technician Pgr: [phone] Ajay De La Rosa MD - 03/30/2012 11:39 PM [facility]3 Internal Medicine Attending Interval note - LATE [...] after d/c until coumading therapeutic with home child care provider through medication assistance program Hypoalbuminemia (03/14/2012) [...] noted any additions above. KIRIT MD YOCASTA [facility] DEPARTMENT: [id number]- [facility] PPV Place of Service:- Inpatient Date of Service: 03/30/2012 CSN: [id number] Suggested Modifier: GC Resident Involved: Yes Suggested CPT: 84519- Subsequent, Detailed/high complex, 35 min Debi Yepez [...] follow closely Shaun SAEED [place] Fellow Pg [phone] signed by Debi Oconnor MD at 03/30/2012 5:32 PM Jacoby Ko MD - 03/30/2012 10:25 AM PSTFormatting of this note might be different from the origi nal. REPLACED BY [facility] DEPARTMENT OF SURGERY Daily Progress Note PROGRESS NOTE: Attending Physician: Xin Rust MD 03/31/2012 Subjective/Overnight Events: - latest CT shows resolution of abscess - no GI bleeding - no rectal/anal pain - tolerating reg diet MEDICATIONS: Reviewed in [facility] VITAL SIGNS: Refer to [facility] Intake/Output Summary (Last 24 hours) [...] concerns. Jacoby Tovar MD Surgery, R2 Diagnoses: [id number] Crohn disease This assessment and plan was [...] state: J Gastroenterol. 2004 Jan;39(10):948-54. PubMed PMID: [id number]. Consulted Heme for further studies on platelet [...] this note might be different from the [facility]. Transfer Accept Note Patient: Mackenzie Hartley Attending: [...] Nathan Weeks MD Internal Medicine PGY1 Pager [phone] Cecilia Baker MD - 03/29/2012 6:37 PM [...] team. Debi Oconnor MD GI Fellow Pager [phone] signed by Debi Oconnor MD at 03/29/2012 [...] planning) Debi Oconnor MD Fellow, Gastroenterology pager: [phone] signed by Debi Oconnor MD at 03/29/2012 [...] note for this encounter. OSBALDO GARCIA MD [facility] [address]A [address] [place] [address] Andrew Shah MD - 10:41 AM PST REPLACED BY [facility] DEPARTMENT OF SURGERY Daily Progress Note PROGRESS NOTE: Attending Physician: Osbaldo Garcia MD 03/29/2012 Subjective/Overnight Events: - bowel prep initiated - Hct stable - no hematochezia or hemetemesis - MEDICATIONS: Reviewed in [facility] VITAL SIGNS: Refer to [facility] Intake/Output Summary (Last 24 hours) [...] GI Jacoby Tovar MD Surgery, R2 Diagnoses: [id number] Crohn disease This assessment and plan was [...] myself provided conscious sedation. OSBALDO GARCIA MD [facility] [address]A [address] [place] [address] I spent 35 min in critical care (not including procedures) [facility] DEPARTMENT: MICU, [facility]- [id number] Place of Service: - Date of Service: 03/29/2012 CSN: [id number] Modifiers:GC Resident Involved: yes Suggested CPT: 76823 Critical Care, Initial 30-74 minutes Carlton Godwin [...] day of transfer to MICU (1 05/29/11), [facility] informed us that according to the most [...] 0659 03/29/12 07 - 03/30/12 0659 Shift 9737-0380 9862-8332 3277-7039 Daily Total 5788-5186 1471-9733 4012-5032 Daily Total I N T A K E P.O. 1750 2525 4275 I.V. 934 6330 204 1499 Shift Total 934 3740 3450 8124 O U T P U T Urine 1075 2950 1875 5900 Urine 1075 2950 1875 5900 Other 575 690 859 1606 Measured Stool Output 350 425 775 Stool/Urine Mix 575 575 Shift Total 1650 3300 2300 7250 NET -704 228 4919 874 Intake/Output Summary (since admission) at 03/12/12 1910 Last data filed at 03/29/12 0547 Gross for the last 17 days Intake 87964 ml Output 24411 ml Net since Admission -99021 ml Physical Exam: General Appearance: middle aged [...] Carlton Betancourt DO PGY-1 Internal Medicine Pager [phone] Debi Yepez MD - 03/11 4:31 PM [...] questions. Debi Oconnor MD GI/Hepatology Fellow Pager: [phone] INTERVAL HISTORY: Episode of melena last night then bright red blood per rectum this morning Hemodynamically stable but decrease in hct from 30 to 24 Transferred to [facility] INPATIENT MEDICATIONS acetaminophen (aka TYLENOL) tablet [...] patient in the past. OSBALDO GARCIA MD [facility] [address]/[id number] [address] I spent 35 min in critical care (not including procedures) EPIC DEPARTMENT: [facility], [facility]- [id number] Place of Service: Date of Service: 03/28/2012 CSN: [id number] Modifiers:GC Resident Involved: yes Suggested CPT: 39207 Critical Care, Initial 30-74 minutes Carlton Godwin [...] 0659 03/28/12 07 - 03/29/12 0659 Shift 6036-7515 8475-0576 3792-6446 Daily Total 9237-4672 4594-3964 1145-1044 Daily Total I N T A K E P.O. 240 300 540 I.V. 404 404 934 934 Blood 1300 1300 Shift Total 327 887 8681 2244 934 934 O U T P [...] Gross for the last 16 days Intake 10058 ml Output 21837 ml Net since Admission -54992 ml Physical Exam: General Appearance: tearful middle [...] Carlton Betancourt DO PGY-1 Internal Medicine Pager [phone] Andrew Shah MD - 6:52 AM PST [...] Sukumar Zuniga DO Internal Medicine PGY-2 Pg [phone] Davonte De La Rosa MD - 03/27/2012 [...] noted any additions above. KIRITYann RUST MD [facility] DEPARTMENT: [id number]- [facility] Place of Service:- Inpatient Date of Service: 03/27/2012 CSN: [id number] Suggested Modifier: Resident Involved: Yes Suggested CPT: 32155- Subsequent, Detailed/high complex, 35 min Marely Mccann [...] was discussed and formulated with gastroenterology at [facility], Dr. Hennessy. Please call with any questions. Debi Oconnor MD GI/Hepatology Fellow Pager: [phone] INTERVAL HISTORY: Imaging reviewed with radiology; too [...] Dung Victor - 2 11:30 AM PST RADIOLOGY TECH NOTE: Visited with Patient. 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 [employer] team will follow as needed. Chaplain Dung Riley M.Div., [facility] [phone] Pager #[phone]; #[phone] Xin De La Rosa MD - 7:31 [...] J Gastroenterol. 2004 Jan;39(10):948-54. PubMed PMID: [id number]. Consulted Heme for further studies on platelet [...] an. ---- Joaquin Rivera, MS4 Pager # [phone] signed by Xin Rust MD at 03/27/2012 [...] noted any additions above. KIRIT RUST MD [facility] DEPARTMENT: [id number]- [facility] Place of Service:- Inpatient Date of Service: 03/26/2012 CSN: [id number] Suggested Modifier: GC Resident Involved: Yes Suggested CPT: 62941- Subsequent, Detailed/high complex, 35 min aphael Norman [...] kg/(m^2). Date 03/26/12699 - 03/27/12 0659 Shift 1871-8200 6729-1311 9904-0768 24 Hour Total I N T A [...] a hx of fistulizing (vaginal and enteral) Substance Addiction Coordinator hn's disease, admitted with widespread arterial emboli [...] physician. Raphael Norman MD Internal Medicine, PGY-2 26022 Xin De La Rosa MD - 03/25/2012 [...] - not larger Resident spoke with radiology asst who spoke with staff - they did [...] taking more PO if still low ask drafter patent to see Hypophosphatemia (03/14/2012) Assessment: rechecked and [...] noted any additions above. KIRIT MD YOCASTA [facility] DEPARTMENT: [id number]- [facility] P[facility] Place of Service:- Inpatient Date of Service: 03/25/2012 CSN: [id number] Suggested Modifier: Resident Involved: Yes Suggested CPT: 35324- Subsequent, Detailed/high complex, 35 min oaquin Rivera [...] J Gastroenterol. 2004 Jan;39(10):948- 54. PubMed PMID: [id number]. Consulted [facility] for further studies on platelet inhibitor [...] an. ---- Joaquin Rivera, MS4 Pager # [phone] Ajay De La Rosa MD - 03/24/2012 [...] drainage of abscess and coordination of care [facility] radiology reviewing perirectal abscess imaging, options for intervention and need for rep eat imagin, also with GI on plan. I personally interviewed the patient, performed the gunter elements of the physical examinatio n, and personally formulated the assessment and plan with the resident. I agree with the MS4 s documentation and have noted any additions above. KIRIT MD YOCASTA [facility] DEPARTMENT: [id number]- [facility] P[facility] Place of Service:- Inpatient Date of Service: 03/24/2012 CSN: [id number] Suggested Modifier: Resident Involved: Yes Suggested CPT: 18644- Subsequent, Detailed/high complex, 35 min Davonte De [...] J Gastroenterol. 2004 Jan;39(10):948- 54. PubMed PMID: [id number]. Consulted Heme for further studies on platelet [...] an. ---- Joaquin Nicole, MS4 Pager # [phone] Ajay De La Rosa MD - 03/23/2012 [...] noted any additions above. KIRIT MD YOCASTA [facility] DEPARTMENT: [id number]- [facility] P[facility] Place of Service:- Inpatient Date of Service: 03/23/2012 CSN: [id number] Suggested Modifier: GC Resident Involved: Yes Suggested CPT: 66824- Subsequent, Detailed/high complex, 35 min Davonte De [...] to be done today JERI DIAZ MD [facility] [address] [place] [address] Xin De La Rosa MD - 03/23/2012 [...] state: J Gastroenterol. 2004 Jan;39(10):948-54. PubMed PMID: [id number]. Consulted Heme for further studies on platelet [...] an. ---- Joaquin Rivera, VIVIANA Pager # [phone] Ajay De La Rosa MD - 03/22/2012 [...] noted any additions above. KIRIT MD YOCASTA [facility] DEPARTMENT: [id number]- [facility] Place of Service:- Inpatient Date of Service: 03/22/2012 CSN: [id number] Suggested Modifier: Resident Involved: Yes Suggested CPT: 50126- Subsequent, Detailed/high complex, 35 min ox, Jeri [...] mg, 2-4 mg, Intravenous, Q4H PRN, Raphael Normna MD, 4 mg at 2 1252 nystatin [...] carotid duplex ordered today JERI DIAZ MD [facility] [address]A [address] [place] [address] Xin De La Rosa MD - 03/22/2012 [...] PTT in mixing 1:1 Neg cardiolipin, neg aymt-A-nwzhptxlljug Legionella Agg Urine pending Cultures: BLOOD CULTURE [...] 11. Thrombocytosis 12. GERD Assessment and Plan: Mcakenzie Hartley is a 56 y.o. female with [...] barber: J Gastroenterol. 2004 Jan;39(10):948-54. PubMed PMID: [id number]. - Consult Heme for further studies on [...] an. ---- Joaquin Rivera, MS4 Pager # [phone] Ajay De La Rosa MD - 03/21/2012 [...] | Pulse 106[sinus tach per senior telecommunications specialist[ | Temp 37.7 C (99.9 F) | [...] -- also coordination of care with pharmD. [facility] DEPARTMENT: [id number]- [facility] P[facility] Place of Service:- Inpatient Date of Service: 03/21/2012 CSN: [id number] Suggested Modifier: AKHIL Resident Involved: Yes Suggested CPT: 50487- Subsequent, Detailed/high complex, 35 min Jennifer Tolentino [...] y.o. Female with multiple complex medical problems; [facility] Vascular Surge ry consulted due to [...] as new baseline Ok to discharge per [facility] Vascular Surgeons once ambulating and medical issues are stable. Will continue to follow while in patient. [facility] Vascular Surgery Clinic, [facility] [address], phone number [phone] Please schedule followup appointment within 2-3 weeks of surgery for wound check. Dr. Sukumar Salgado, [facility] Vascular Surgery Attending. MERT OLIVA [facility] VASCULAR SURGERY [facility] [place] [address] hamMoses MD - 03/21/2012 6:55 AM PSTAgree [...] w ill need to establish care with net front end developer so that further treatment options can be [...] assessment and plan. Moses Anthony MD Neurology Eeg Technician Pager [phone] oaquin Rivera - 02/2012 6:55 AM PST [...] an. ---- Joaquin Rivera, MS4 Pager # [phone] Xin De La Rosa M D - 03/20/2012 11:09 PM [facility]3 Internal Medicine Attending Interval note Hospital [...] noted any additions above. KIRIT MD YOCASTA [facility] DEPARTMENT: [id number]- [facility] P[facility] Place of Service:- Inpatient Date of Service: 03/20/2012 CSN: [id number] Suggested Modifier: Resident Involved: Yes Suggested CPT: 09937- Subsequent, Detailed/high complex, 35 min ennifer Staples, [facility] - 03/20/2012 3:36 PM PST . [...] y.o. Female with multiple complex medical problems; [facility] Vascular Surge ry consulted due to [...] chair as tolerated, RLE WBAT -Please obtain [facility] Lab Arterial duplex ultrasound/DELORIS of both legs prior to discharge as n ew baselineObtain ABIs with waveforms To establish new blood-flow baseline Ok to discharge per [facility] Vascular Surgeons once ambulating and medical issues are stable. Will continue to follow while in patient. [facility] Vascular Surgery Clinic, [facility], phone number [phone] Please schedule followup appointment within 2-3 weeks of surgery for wound check. Dr. Sukumar Salgado, [facility] Vascular Surgery Attending. MERT OLIVA [facility] VASCULAR SURGERY [address] [place] [address] aphael Norman - 7:58 AM PSTI agree [...] plan. Raphael Norman MD Internal Medicine, PGY-2 53517 rinJoaquin dowd - 2011 7:58 AM PST [...] an. ---- Joaquin Rivera, MS4 Pager # [phone] Juma Pimentel MD - 12/2011 3:35 PM [...] record is Dr. Salgado. JUMA CARRINGTON MD [facility] [address] [place] [address] Chary Moore M D - 03/19/2012 9:14 [...] note from 03/14 for details. Therefore the ypxg-jrps-wngox plan givens s been to allow her [...] plan. Lovenox bridge to be covered by [facility]. 9) Occlusive thrombus 10) Hypoalbuminemia 11) Hypophosphatemia 12) TIA (transient ischemic attack) - with PFO 13) PFO (patent foramen ovale) - plan is for lifelong coumadin. No additional benefit from device closure per CLOSURE I trial. Chary Doherty MD Chief Resident, Internal Medicine Pager: [phone] [facility] DEPARTMENT: Hosp- [id number] Place of Service: - Date of Service: 03/19/2012 CSN: [id number] Modifiers:GC Resident Involved: Yes Suggested CPT: 22233 Subsequent Visit Detailed/High complexity 35 min I [...] (4) initiate immunosuppressive therapy for her Crohn's. Aryln r patient refusing colonoscopy and surgical drainage. [...] will need to establish c are with net front end developer so that further treatment options can be [...] assessment and plan. Moses Anthony MD Neurology Eeg Technician Pager [phone] tJose Antonio prado MD - 03/18/2012 1:01 [...] outpt GI, plans to establish care in [place], perhaps Dr. Byrd. Transitioning to PO meds, [...] Doherty MD Chief Resident, Internal Medicine Pager: [phone] [facility] DEPARTMENT: Hosp- [id number] Place of Service: - Date of Service: 03/18/2012 CSN: [id number] Modifiers: Resident Involved: Yes Suggested CPT: 18011 Subsequent Visit Exp Prob Foc/Mod Complexity 25 [...] Date 03/18/12 0700 - 03/19/12 0659 Shift 4564-9822 1442-8181 2627-4659 24 Hour Total I N T A K E P.O. 620 620 I.V. 20 20 40 Shift Total 640 20 660 O U T P U T Urine 675 100 775 Other 400 400 Shift Total 762 535 5326 Weight (kg) 74.1 74.1 74.1 74.1 General: [...] refusing). Will need to establish care with net front end developer so that further treatment options can be [...] in MS4 note. Moses Anthony MD Neurology Eeg Technician Pager [phone] signed by Moses Asher MD at 03/18/2012 [...] an. ---- Nuñez Nicole, MS4 Pager # [phone] Chary Moore MD - 03/17/2012 8:39 PM [...] refusing). Will need to establish care with net front end developer so this can be discussed as outpt [...] Doherty MD Chief Resident, Internal Medicine Pager: [phone] [facility] DEPARTMENT: Hosp- [id number] Place of Service: - Date of Service: 03/17/2012 CSN: [id number] Modifiers: Resident Involved: Yes Suggested CPT: 53910 Subsequent Visit Detailed/High complexity 35 min I [...] at end of case. MIRELA SALGADO MD [facility] [address] [address] [place] [address] ham, Gloria Lawson MD - [...] until she's therapeutic with her coumadin and [facility] has agreed to provide discounted INR [...] y Gloria Anthony MD Neurology PGY1 Pager: [phone] oaquin Rivera - 10/2011 7:19 AM PST Medicine Progress Note Refer to Attending and Resident Notes for Assessment and Plan Hospital Day # 5 Patient:Mackenzie Hartley, Attending: Chary Doherty MD Author:Joaquin Rivera MS4 ID:Macknezie Hartley is a 56 y.o. female with [...] an. ---- Joaquin Rivera, MS4 Pager # [phone] Chary Moore MD - 03/16/2012 12:56 PM [...] Doherty MD Chief Resident, Internal Medicine Pager: [phone] [facility] DEPARTMENT: Hosp- [id number] Place of Service: - Date of Service: 03/16/2012 CSN: [id number] Modifiers: Resident Involved: Yes Suggested CPT: 64578 Subsequent Visit Exp Prob Foc/Mod Complexity 25 min and 87182 Subseque nt Visit Detailed/High complexity 35 min [...] DNR/DNI Gloria Anthony MD Neurology PGY-1 Pager [phone] The patient was seen and discussed with [...] Doherty MD Chief Resident, Internal Medicine Pager: [phone] [facility] DEPARTMENT: Hosp- [id number] Place of Service: - Date of Service: 03/15/2012 CSN: [id number] Modifiers:GC Resident Involved: Yes Suggested CPT: 95130 Subsequent Visit Detailed/High complexity 35 min Dariela [...] plan. Dariela Santoyo MD Internal Medicine PGY-3 [id number] Daryl Singleton MD - 08/2011 7:18 PM PSTHematology Attending Consult Note: I saw and examined Ms. Hartley with the Hematology Fellow, Dr. Anthony Camejo and [facility] [place] the 5A Medicine unit. I participated in the gunter components of today's [facility] visit including review of the [...] re Daryl Arteaga MD, PhD Hematology Oncology [facility] DEPARTMENT: [id number]- [facility] Place of Service: - Inpatient Date of Service: 03/15/2012 Modifiers: GC - Resident Involved Suggested CPT: 78784 - Subsequent, Detailed/High complex 35 min Anthony [...] anticoagulation clinic f/u closely; our clinic at [facility] cannot provide any suppli es -anticoagulation [...] as above. MD Hematology/Oncology Fellow Pager # [phone] signed by Daryl Arteaga MD at 03/15/2012 [...] with any questions. Bigg Margaret, R1 Pager: [phone] INTERVAL HISTORY: - NAEO - VSS, AF [...] wishes to pro ceed. Mirela Samano M.D. [facility] Vascular Surgery [address] [facility], [address] [address] Email: [email or web address], Sandoval Barrett MD - 03/15/2012 [...] off to day. Jacoby Tovar MD Surgery [id number] signed by Sandoval Tovar MD at 03/15/2012 [...] monitor Gloria Anthony MD Neurology PGY1 Pager [phone] Daryl Singleton MD - 07/2011 4:57 PM PSTHematology Attending Consult Note: I saw and examined Ms. Hartley with the Hematology Fellow, Dr. Anthony Camejo in the [address] [place] [address] unit. I participated in the gunter components [...] re Daryl Arteaga MD, PhD Hematology Oncology [facility] DEPARTMENT: [id number]- [facility] Place of Service: - Inpatient Date of Service: 03/14/2012 Modifiers: GC - Resident Involved Suggested CPT: 90649 - Subsequent, Detailed/High complex 35 min Anthony [...] as above. MD Hematology/Oncology Fellow Pager # [phone] signed by Daryl Arteaga MD at 03/14/2012 [...] really for treatment Recommendations communicated with GM[employer] application internship. We will continue to follow. This plan was discussed and formulated with gastroenterology at [facility], Dr. Casiano. Please call with any questions. Bigg Robles, R1 Pager: [phone] Attending Attestation: I personally interviewed the patient, [...] She may follow-up wit h her local net front end developer or may follow up with me at [facility] if she wishes to consider di fferent evaluation or treatment. Gopal Casiano MD [employer] Supervisordry end operator Department of Gastroenterology INTERVAL HISTORY: - [...] IMAGING Reviewed outside imaging with radiologist at [facility] and CT abd and pelvis shows [...] Becca Moncada MD General Surgery, R2 Pager: [phone] [facility] Staff I saw and evaluated the patient. I agree with the findings and the plan of care as jannie hair in the resident s note. Left foot warm and well perfused. Patient pain-free. Will repe at [facility] to see if there has been any thrombus progression. No urgent need for surgery on left leg at this point. Mirela Samano M.D. [facility] Vascular Surgery [address] [place] [address], [address] [address] Email: [email or web address], Irene Vega MD - 03/14/2012 [...] at OSH. 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 She also had leukocytosis to 45 with a left shift, anemia, and thrombocytosis (platelets to 759). Her abdominal exam was not acute and she remained hemodynamically stable. Transferre d to [facility] for possible thrombectomy, initiated heparin therapy, [...] were obscured by overlying bowel gas. The [id number] left external iliac arteries appear patent with [...] transient arterial occlusion. Reported CT findings at [facility] are also concerning for diffuse intra-abdominal [...] CARLOS A SALCIDO MD R2, General Surgery [facility] 03/13/2012 1:20 PM Current Facility-Administered Medications [...] Recorded LastCBG Intervention: Notified (Comment);Medication given (03/12/12 9836) CBC with diff last 72 hours (or [...] Becca Moncada MD General Surgery, R2 Pager: [phone] Vascular Staff I saw and evaluated the [...] at a later time. Mirela Samano M.D. [facility] Vascular Surgery [address] [facility] [place] [address] Email: [email or web address] Richie Goodman MD - 06/2011 11:15 AM PSTI was present and rounded with the CHEMICAL LAB SUPERVISOR today. I interviewed and examined the patient. I reviewed the history, as documented today. I agree with the CHEMICAL LAB SUPERVISOR's assessmen t and plan. Pt is stable [...] visceral and aortic thrombus transfer red from [place] last night with concerns for ischemic bowel. [...] and celiac arteries who was transferred to [facility] for management o f vascular disease and possible bowel ischemia. No evidence of bowel ischemia, bowel thicken ing likely Crohn's flare. 1. Crohn's flare: GI consult. Consider transfer to medicine for crohn's management with [facility] following 2. Multivessel occlusions/thrombii: vascular [...] Her abdominal exam does not reveal peritonitis. [facility] ular surgery recommended a heparin drip given her subtherapeutic INR. Hematology will be con sulted for her leukocytosis and declining platelet count in the setting of heparin therapy. Gastroenterology is making recommendations regarding acute management of her Crohn's disease . She will no longer require ICU care and she will transfer to the general medicine service. Jf Wiseman MD FACS bottom scrubber Division of Trauma, Critical Care, and Acute Care Surgery [id number] documented in this e ncounter Plan of [...] | + + + + + | [facility] | [address] | [place] [address] | | | JANELL SHARP | BERTRAM [...] [facility] | [address] | [place] [address] | | | SERVICES, CORE | BERTRAM [...] | + + + + + | [facility] | [address] | [place] [address] | | | JANELL SHARP | BERTRAM [...] LABORATORY | [address] | [place] [address] | | | SERVICES, CORE | PARK [...] | + + + + + | [facility] | [address] | [place] [address] | | | SERVICES, CORE | PARK [...] [facility] | [address] | [place] [address] | | | SERVICES, JANELL | BERTRAM [...] [facility] | [address] | [place] [address] | | | JANELL SHARP | BERTRAM [...] [facility] | [address] | [place] [address] | | | SERVICES, JANELL | BERTRAM [...] [facility] | [address] | [place] [address] | | | SERVICES, CORE | PARK [...] [facility] | [address] | [place] [address] | | | SERVICES, CORE | BERTRAM [...] [facility] | [address] | [place] [address] | | | SERVICES, CORE | PARK [...] | + + + + + | [facility] | [address] | [place] [address] | | | SERVICES, CORE | BERTRAM [...] | + + + + + | [facility] | [address] | [place] [address] | | | SERVICES, CORE | PARK [...] + | [facility] | [address] | [place] [address] | | | [place] | | | [...] + | [facility] | [address] | [place] [address] | | | [place] | | | [...] + | [facility] | [address] | [place] [address] | | | [place] | | | | + + + [...] | + + + + + | [facility] | [address] | [place] [address] | | | SERVICES, CORE | BERTRAM [...] | + + + + + | [facility] | [address] | [place] [address] | | | SERVICES, CORE | BERTRAM [...] | + + + + + | [facility] | [address] | [place] [address] | | | SERVICES, CORE | BERTRAM [...] | + + + + + | [facility] | [address] | [place] [address] | | | ARON, JANELL | BERTRAM [...] | + + + + + | [facility] DEPARTMENT | [address] | [place] [address] | | | PATHOLOGY | [address] [...] [facility] | [address] | [place] [address] | | | SERVICES, CORE | PARK [...] | + + + + + | [facility] | [address] | [place] [address] | | | ARON, [facility] | [address] | | | + [...] [facility] | [address] | [place], [place] | | | [facility] | [address] | [address] | | | TESTS | | | [...] | + + + + + | [facility] | [address] | [place] [address] | | | SERVICES, CORE | BERTRAM [...] | + + + + + | [facility] | [address] | [place] [address] | | | ARON, CORE | BERTRAM [...] | + + + + + | [facility] | [address] | [place] [address] | | | SERVICES, CORE | BERTRAM [...] (H) | 60 - 99 mg/dL | [facility] - | | | GLUCOSE, | [...] [facility] | [address] | [place], [place] | | | [facility] CARE | [address] | [address] | | | TESTS | | | [...] | + + + + + | [facility] | [address] | [place] [address] | | | SERVICES, CORE | BERTRAM [...] | + + + + + | [facility] | [address] | [place] [address] | | | SERVICES, CORE | BERTRAM [...] [facility] | [address] | [place] [address] | | | SERVICES, CORE | PARK [...] | + + + + + | [facility] | [address] | [place] [address] | | | SERVICES, CORE | [address] | | | + + + + + X-RAY PORTABLE CHEST 1 VIEW (03/28/2012 6:28 AM PST) + + + + + + | Component | Value | Ref Range | Performed | Pathologist | | | | | At | Signature | + + + + + + | X-RAY | STUDY: [place] CHEST 1 VIEW | | | | [...] + + + + | PRODUCT | [id number] | | [facility] | | | UNIT [...] + + + + | BLOOD | [id number] | | [facility] | | | PRODUCT [...] [facility] | [address] | [place] [address] | | | PATHOLOGY | [address] [...] + + + + | PRODUCT | [id number] | | [facility] | | | UNIT [...] + + + + | BLOOD | [id number] | | [facility] | | | PRODUCT [...] | + + + + + | [facility] | [address] | [place] [address] | | | PATHOLOGY | [address] [...] [facility] | [address] | [place], [place] | | | [facility]ARE | [address] | [address] | | | TESTS | | | [...] | + + + + + | [facility] | [address] | [place] [address] | | | JANELL SHARP | BERTRAM [...] view image for the detailed interpretation from CaseRev results. | CARDIOLOGY | + + + + + + + + | Performing | Address | City/State/Zipcode | Phone Number | | Organization | | | | + + + + + | [facility] | [address] | [place], [place] | | | CARDIOLOGY | [address] | [address] | | + + + + + [...] [facility] | [address] | [place] [address] | | | SERVICES, CORE | BERTRAM [...] + + + + | PRODUCT | [id number] | | [facility] | | | UNIT [...] + + + + | BLOOD | [id number] | | [facility] | | | PRODUCT [...] | + + + + + | [facility] | [address] | [place] [address] | | | PATHOLOGY | [address] [...] + + + + | PRODUCT | [id number] | | [facility] | | | UNIT [...] + + + + | BLOOD | 22396 | | [facility] | | | PRODUCT [...] | + + + + + | [facility] DEPARTMENT | [address] | [place] [address] | | | PATHOLOGY | [address] [...] [facility] | [address] | [place] [address] | | | SERVICES, CORE | PARK [...] [facility] | [address] | [place] [address] | | | JANELL SHARP | BERTRAM [...] | + + + + + | [facility] | [address] | [place] [address] | | | JANELL SHARP | BERTRAM [...] [facility] | [address] | [place] [address] | | | SERVICES, CORE | PARK [...] [facility] | [address] | [place] [address] | | | SERVICES, | [address] [...] [facility] | [address] | [place] [address] | | | SERVICES, | [address] [...] + + + + | PRODUCT | [id number] | | [facility] | | | UNIT [...] + + + + | BLOOD | 78977 | | [facility] | | | PRODUCT [...] | + + + + + | [facility] | [address] | [place] [address] | | | PATHOLOGY | [address] [...] + + + + | PRODUCT | [id number] | | [facility] | | | UNIT [...] + + + + | BLOOD | 23175 | | [facility] | | | PRODUCT [...] OF | [address] | [place] [address] | | | PATHOLOGY | [address] [...] [facility] | [address] | [place] [address] | | | SERVICES, CORE | PARK [...] | + + + + + | [facility] | [address] | [place] [address] | | | SERVICES, CORE | PARK [...] | + + + + + | [facility] | [address] | [place] [address] | | | SERVICES, CORE | PARK [...] | + + + + + | [facility] | [address] | [place] [address] | | | SERVICES, CORE | PARK [...] [facility] | [address] | [place] [address] | | | JANELL SHARP | BERTRAM [...] [facility] | [address] | [place] [address] | | | SERVICES, CORE | PARK [...] [facility] | [address] | [place] [address] | | | SERVICES, CORE | PARK [...] [facility] | [address] | [place] [address] | | | SERVICES, CORE | PARK [...] 82 | 60 - 99 mg/dL | [facility] | | | PLASMA | | | [...] [facility] | [address] | [place] [address] | | | JANELL SHARP | BERTRAM [...] [facility] | [address] | [place] [address] | | | SERVICES, CORE | PARK [...] [facility] | [address] | [place] [id number] | | | SERVICES, CORE | BERTRAM [...] [facility] | [address] | [place] [address] | | | SERVICES, CORE | PARK [...] [facility] | [address] | [place] [address] | | | SERVICES, CORE | PARK [...] [facility] | [address] | [place] [address] | | | SERVICES, CORE | PARK [...] | + + + + + | [facility] | [address] | [place] [address] | | | JANELL SHARP | BERTRAM [...] oral, | | | | | | [id number] hrs | | | | | | [...] | | + +---------+ + + | [facility] DEPARTMENT OF | | | | [...] [facility] | [address] | [place] [address] | | | SERVICES, CORE | PARK [...] | + + + + + | [facility] | [address] | [place] [address] | | | SERVICES, CORE | PARK [...] | + + + + + | [facility] | [address] | [place] [address] | | | SERVICES, CORE | [...] | + + + + + | [facility] | [address] | [place] [address] | | | SERVICES, CORE | BERTRAM [...] [facility] | [address] | [place] [address] | | | SERVICES, CORE | PARK [...] | | | | Final | | [place] | | | | CULTURE RESULT:< 10,000 [...] + | [facility] - | [address] | [place] [address] | | | [facility] | | | | + + [...] + + | [facility] | [address] | [place] [address] | | | SERVICES, CORE | PARK [...] [facility] | [address] | [place] [address] | | | SERVICES, JANELL | BERTRAM [...] + + | [facility] | [address] | [place] [address] | | | JANELL SHARP | BERTRAM [...] | + + + + + | [facility] | [address] | [place] [address] | | | SERVICES, CORE | [address] | | | + + + + + 12 LEAD ECG (03/23/2012 4:00 PM PST) + + + + + + | Component | Value | Ref Range | Performed | Pathologist | | | | | At | Signature | + + + + + + | VENTRICULAR | 103 | BPM | [facility] DEPT | | | RATE | [...] view image for the detailed interpretation from CaseRev results. | CARDIOLOGY | + + + + + + + + | Performing | Address | City/State/Zipcode | Phone Number | | Organization | | | | + + + + + | [facility] OF | [address] | [place], [place] | | | CARDIOLOGY | [address] | [address] | | + + + + + [...] [facility] | [address] | [place] [address] | | | SERVICES, CORE | PARK [...] [facility] | [address] | [place] [address] | | | SERVICES, CORE | B[address]TRAM [...] | + + + + + | [facility] | [address] | [place] [address] | | | SERVICES, CORE | PARK [...] | + + + + + | [facility] | [address] | [place] [address] | | | SERVICES, JANELL | [address]TRAM [...] | | | | | [facility] | | | | | | [place] [address] | | | | | | [phone]. | | | | | | Kaitlin [...] [facility] | [address] | [place], [place] | | | [facility] | | [address] | | + + + + + [...] | + + + + + | [facility] | [address] | [place] [address] | | | SERVICES, JANELL | [address] [...] + + CULTURE, BLOOD BACTI & YEAST [facility] (03/22/2012 7:09 PM PST) + + [...] | + + + + + | [facility] | [address] | [place] [address] | | | SERVICES, CORE | BERTRAM [...] | + + + + + | [facility] | [address] | [place] [address] | | | SERVICES, CORE | [address] | | | + + + + + 12 LEAD ECG (03/22/2012 2:58 PM PST) + + + + + + | Component | Value | Ref Range | Performed | Pathologist | | | | | At | Signature | + + + + + + | VENTRICULAR | 87 | BPM | [facility] | | | RATE | | [...] | | | | | XIN GARZON ([id number]) | | | | | | on 03/22/2012 4:25:06 PM | | | | + + + + + + + + | Specimen | + + | | + + + + + | Narrative | Performed At | + + + | Please click | [facility] | | on view image for the detailed interpretation from CaseRev results. | CARDIOLOGY | + + + + + + + + | Performing | Address | City/State/Zipcode | Phone Number | | Organization | | | | + + + + + | [facility] | [address] | [place], [place] | | | CARDIOLOGY | [address] | [address] | | + + + + + [...] [facility] | [address] | [place], [place] | | | [facility] | [facility] | [address] | | | TESTS | | | [...] [facility] | [address] | [place], [place] | | | [facility]INT OF CARE | [facility] | [address] | | | TESTS | | | [...] | + + + + + | [facility] | [address] | [place] [address] | | | SERVICES, CORE | [address] [...] [facility] | [address] | [place] [address] | | | SERVICES, CORE | PARK [...] + + | [facility] | [address] | [place] [address] | | | SERVICES, CORE | [address] [...] [facility] | [address] | [place] [address] | | | SERVICES, CORE | [address] [...] | + + + + + | [facility] | [address] | [place] [address] | | | SERVICES, CORE | BERTRAM [...] (H) | 60 - 99 mg/dL | [facility] - | | | GLUCOSE, | [...] [facility] | [address] | [place], [place] | | | [facility] CARE | [address] | [address] | | | TESTS | | | [...] | + + + + + | [facility] | [address] | [place] [address] | | | ARON, JANELL | BERTRAM [...] (H) | 60 - 99 mg/dL | [facility] - | | | GLUCOSE, | [...] [facility] | [address] | [place], [place] | | | [facility]INT OF CARE | [address] | [address] | | | TESTS | | | [...] view image for the detailed interpretation from CaseRev results. | CARDIOLOGY | + + + + + + + + | Performing | Address | City/State/Zipcode | Phone Number | | Organization | | | | + + + + + | [facility] | [address] | [place], [place] | | | CARDIOLOGY | [address] | [address] | | + + + + + [...] [facility] | [address] | [place], [place] | | | [facility] [place] | [address] | [address] | | | TESTS | | | | + + + + + VASC LAB ANKLE BRACH INDICS W WAVEFORM BILAT (03/21/2012 8:17 AM PST) + + + + + + | Component | Value | Ref Range | Performed | Pathologist | | | | | At | Signature | + + + + + + | [facility] | ANKLE BRACHIAL INDEX | [...] | + + + + + | [facility] | [address] | [place] [address] | | | SERVICES, CORE | PARK [...] | + + + + + | [facility] | [address] | [place] [address] | | | SERVICES, CORE | BERTRAM [...] | + + + + + | [facility] | [address] | [place] [address] | | | SERVICES, CORE | PARK [...] | + + + + + | [facility] | [address] | [place] [address] | | | SERVICES, CORE | B[address]TRAM [...] [facility] | [address] | [place] [id number] | | | JANELL SHARP | BERTRAM [...] GARCIA | | | | | | ([id number]) on 03/22/2012 | | | | | | 12:47:28 PM | | | | + + + + + + + + | Specimen | + + | | + + + + + | Narrative | Performed At | + + + | Please click | [facility] | | on view image for the detailed interpretation from CaseRev results. | CARDIOLOGY | + + + + + + + + | Performing | Address | City/State/Zipcode | Phone Number | | Organization | | | | + + + + + | [facility] | [address] | [place], [place] | | | CARDIOLOGY | [address] | [address] | | + + + + + [...] | + + + + + | [facility] | [address] | [place] [address] | | | SERVICES, CORE | BERTRAM [...] LABORATORY | [address] | [place] [address] | | | JANELL SHARP | BERTRAM [...] 98 | 60 - 99 mg/dL | [facility] - | | | GLUCOSE, | [...] [facility] | [address] | [place], [place] | | | [facility] | [address] | [address] | | | TESTS | | | [...] view image for the detailed interpretation from CaseRev results. | CARDIOLOGY | + + + + + + + + | Performing | Address | City/State/Zipcode | Phone Number | | Organization | | | | + + + + + | [facility] | [address] | [place], [place] | | | CARDIOLOGY | [address] | [address] | | + + + + + [...] [facility] | [address] | [place], [place] | | | [facility] [place] | [facility] | [address] | | | TESTS | | | [...] [facility] | [address] | [place], [place] | | | [facility] CARE | [address] | [address] | | | TESTS | | | | + + + + + X-RAY PORTABLE CHEST 1 VIEW (03/20/2012 10:13 AM PST) + + + + + + | Component | Value | Ref Range | Performed | Pathologist | | | | | At | Signature | + + + + + + | X-RAY | STUDY: [place] CHEST 1 VIEW | | | | [...] [facility] | [address] | [place] [address] | | | SERVICES, JANELL | BERTRAM [...] | + + + + + | [facility] | [address] | [place] [address] | | | ARON, JANELL | BERTRAM [...] | + + + + + | [facility] | [address] | [place] [address] | | | JANELL SHARP | BERTRAM [...] | + + + + + | [facility] | [address] | [place] [address] | | | SERVICES, CORE | BERTRAM [...] (H) | 60 - 99 mg/dL | [facility] - | | | GLUCOSE, | [...] [facility] | [address] | [place], [place] | | | [facility]ARE | [address] | [address] | | | TESTS | | | [...] [facility] | [address] | [place], [place] | | | [facility] [place] | [address] | [address] | | | TESTS | | | [...] | + + + + + | [facility] | [address] | [place] [address] | | | SERVICES, CORE | [address] [...] | + + + + + | [facility] | [address] | [place] [address] | | | JANELL SHARP | BERTRAM [...] [facility] | [address] | [place], [place] | | | [facility] | [address] | [address] | | | TESTS | | | [...] view image for the detailed interpretation from CaseRev results. | CARDIOLOGY | + + + + + + + + | Performing | Address | City/State/Zipcode | Phone Number | | Organization | | | | + + + + + | [facility] | [address] | [place], [place] | | | CARDIOLOGY | [address] | [address] | | + + + + + [...] [facility] | [address] | [place], [place] | | | [facility] [place] | [address] | [address] | | | TESTS | | | [...] - [facility] | [address] | [place], [place] | | | [facility] CARE | [address] | [address] | | | TESTS | | | [...] [facility] | [address] | [place] [address] | | | SERVICES, CORE | BERTRAM [...] [facility] | [address] | [place] [address] | | | SERVICES, CORE | PARK [...] [facility] | [address] | [place] [address] | | | SERVICES, CORE | PARK [...] | + + + + + | [facility] | [address] | [place] [address] | | | SERVICES, JANELL | BERTRAM [...] | | | | Final | | [place] | | | | CULTURE RESULT:No growth [...] + | [facility] | [address] | [place] [address] | | | [place] | | | | + + + [...] | + + + + + | [facility] | [address] | [place] [address] | | | SERVICES, CORE | BERTRAM [...] [facility] | [address] | [place] [address] | | | SERVICES, CORE | PARK [...] [facility] | [address] | [place] [address] | | | JANELL SHARP | BERTRAM [...] [facility] | [address] | [place] [address] | | | SERVICES, CORE | PARK [...] + | [facility] | [address] | [place] [address] | | | SERVICES, CORE | PARK [...] - [facility] | [address] | [place], [place] | | | [facility] | [address] | [address] | | | TESTS | | | [...] | + + + + + | [facility] | [address] | [place] [address] | | | SERVICES, CORE | BERTRAM [...] [facility] | [address] | [place], [place] | | | [facility] | [address] | [address] | | | TESTS | | | [...] + + | [facility] | [address] | [place] [address] | | | SERVICESJANELL | [address] [...] | + + + + + | [facility] | [address] | [place] [address] | | | SERVICES, CORE | BERTRAM [...] (H) | 60 - 99 mg/dL | [facility] - | | | GLUCOSE, | | [...] [facility] | [address] | [place], [place] | | | [facility] | [address] | [address] | | | TESTS | | | | + + + + + OPERATION RECORD (03/18/2012 11:22 AM PST) + + | Transcriptions | + + | Mirela Salgado MD - 03/18/2012 8:38 AM PST Date: 03/17/2012ttending | | Surgeon: Mirela Salgado M.D.Engineer First Assistant(s): Sandoval | | Bennett Galvez M.D.Preoperative Diagnosis(es):Embolus, [...] | | tolerated the procedure well.MIRELA SALGADO, [facility] / [id number] / | | [id number] / [id number] / T: 03/17/2012 | |was no pulse. 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 | | | [facility] / | |[id number] / [id number] / [id number] / | | | | | + + HEPARIN, EITHER STANDARD / LMW, BLOOD (03/18/2012 10:26 AM [facility]) + +-------+ + + + | [...] | + + + + + | [facility] | [address] | [place] [address] | | | ARON, CORE | BERTRAM [...] [facility] | [address] | [place] [address] | | | SERVICES, JANELL | BERTRAM [...] [facility] | [address] | [place] [address] | | | SERVICES, CORE | PARK [...] [facility] | [address] | [place] [address] | | | SERVICES, CORE | PARK [...] [facility] | [address] | [place] [address] | | | SERVICES, CORE | PARK [...] LABORATORY | [address] | [place] [address] | | | SERVICES, CORE | PARK [...] | + + + + + | [facility] | [address] | [place] [address] | | | SERVICES, CORE | BERTRAM [...] SANDERS | [address] | [place], [place] | | | [facility] POINT [facility] CARE | [address] | [address] | | | TESTS | | | [...] [facility] | [address] | [place], [place] | | | [facility] CARE | [address] | [address] | | | TESTS | | | [...] (H) | 60 - 99 mg/dL | [facility] - | | | GLUCOSE, | | [...] [facility] | [address] | [place], [place] | | | [facility]SCAR POINT OF CARE | [address] | [address] | | | TESTS | | | [...] [facility] | [address] | [place] [address] | | | SERVICES, JANELL | BERTRAM [...] | + + + + + | [facility] | [address] | [place] [address] | | | SERVICES, CORE | PARK [...] | + + + + + | [facility] | [address] | [place] [address] | | | SERVICES, CORE | BERTRAM [...] [facility] | [address] | [place] [address] | | | ARON, JANELL | PARK [...] (H) | 60 - 99 mg/dL | [facility] - | | | GLUCOSE, | [...] - MARILY[facility] | [address] | [place], [place] | | | OSCAR POINT OF CARE | [address] | [address] | | | TESTS | | | [...] [facility] | [address] | [place] [address] | | | SERVICES, | [address] [...] [facility] | [address] | [place] [address] | | | SERVICES, | [address] [...] | + + + + + | [facility] | [address] | [place] [address] | | | JANELL SHARP | BERTRAM [...] (H) | 60 - 99 mg/dL | [facility] - | | | GLUCOSE, | [...] + + + | [facility] | [address] | [place], [place] | | | [facility] | [address] | [address] | | | TESTS | | | [...] | | + +---------+ + + | [facility] DEPARTMENT OF | | | | [...] / | | | | | | Snoia Montanez | | | | + + [...] MARILYN | [address] | [place], [place] | | | [facility] [place] | [facility] | [address] | | | TESTS | | | [...] (H) | 60 - 99 mg/dL | [facility] - | | | GLUCOSE, | [...] DAVIDAM | [address] | [place], [place] | | | OSCAR POINT OF CARE | [address] | [address] | | | TESTS | | | [...] | + + + + + | [facility] | [address] | [place] [address] | | | SERVICES, CORE | BERTRAM [...] + + | [facility] | [address] | [place], [place] | | | [facility] CARE | [address] | [address] | | | TESTS | | | [...] | + + + + + | [facility] | [address] | [place] [address] | | | SERVICES, CORE | PARK [...] [facility] | [address] | [place] [address] | | | SERVICES, CORE | PARK [...] [facility] | [address] | [place] [address] | | | SERVICESJANELL | [address] [...] | + + + + + | [facility] | [address] | [place] [address] | | | SERVICES, CORE | BERTRAM [...] SANDERS | [address] | [place], [place] | | | [facility] POINT OF CARE | [address] | [address] | | | TESTS | | | [...] MARILYN | [address] | [place], [place] | | | [facility] | [address] | [address] | | | TESTS | | | [...] | | + +---------+ + + | [facility] DEPARTMENT OF | | | | [...] Kirstie | | | | | | [place] | | | | + + + + + + + + | Specimen | + + | | + + + +---------+ + + | Performing | Address | City/State/Zipcode | Phone Number | | Organization | | | | + +---------+ + + | [facility] DEPARTMENT OF | | | | [...] MARQU[facility] | [address] | [place], [place] | | | PE[facility] CARE | [address] | [address] | | | TESTS | | | [...] DAVIDAM | [address] | [place], [place] | | | [facility] | [address] | [address] | | | TESTS | | | [...] | + + + + + | [facility] | [address] | [place] [address] | | | SERVICES, SPECIAL | PARK [...] + + | [facility] | [address] | [place] [address] | | | SERVICES, SPECIAL | BERTRAM [...] [facility] | [address] | [place] [address] | | | SERVICES, SPECIAL | PARK [...] [facility] | [address] | [place] [address] | | | SERVICES, SPECIAL | PARK [...] + + | [facility] | [address] | [place] [address] | | | ARON, JANELL | BERTRAM [...] | + + + + + | [facility] | [address] | [place] [address] | | | SERVICES, CORE | BERTRAM [...] [facility] | [address] | [place] [address] | | | SERVICES, CORE | PARK [...] | + + + + + | [facility] | [address] | [place] [address] | | | ARON, JANELL | BERTRAM [...] MARILYN | [address] | [place], [place] | | | [facility] | [address] | [address] | | | TESTS | | | [...] | + + + + + | [facility] | [address] | [place] [address] | | | SERVICES, CORE | BERTRAM [...] SANDERS | [address] | [place], [place] | | | [facility] [place] | [facility] | [address] | | | TESTS | | | [...] MARILYN | [address] | [place], [place] | | | [facility] POINT OF CARE | [address] | [address] | | | TESTS | | | [...] Davina | | | | | | Giles | | | | + + + [...] [facility] | [address] | [place], [place] | | | [facility]ARE | [address] | [address] | | | TESTS | | | [...] + + + + | PRODUCT | [id number] | | [facility] | | | UNIT [...] + + + + | BLOOD | [id number] | | [facility] | | | PRODUCT [...] | + + + + + | [facility] | [address] | [place] [address] | | | PATHOLOGY | [address] [...] + + + + | PRODUCT | [id number] | | [facility] | | | UNIT [...] + + + + | BLOOD | [id number] | | [facility] | | | PRODUCT [...] OF | [address] | [place] [address] | | | PATHOLOGY | [address] [...] [facility] | [address] | [place] [address] | | | SERVICES, CORE | PARK [...] - MARGOP[facility] | [address] | [place], [place] | | | [facility] CARE | [address] | [address] | | | TESTS | | | [...] SANDERS | [address] | [place], [place] | | | [facility] [place] | [address] | [address] | | | TESTS | | | [...] [facility] | [address] | [place] [address] | | | SERVICES, CORE | BERTRAM [...] [facility] | [address] | [place] [address] | | | SERVICES, CORE | PARK [...] | + + + + + | [facility] | [address] | [place] [address] | | | SERVICES, CORE | BERTRAM [...] | | If supplementation does | | [facility] | | | | not correct [...] if | | | | | | [id number] >400: | | | | | | [...] + | [facility] - | [address] | [place] [address] | | | [place] | | | [...] [facility] | [address] | [place] [address] | | | SERVICES, CORE | PARK [...] [facility] | [address] | [place] [address] | | | SERVICES, CORE | PARK [...] | + + + + + | [facility] | [address] | [place] [address] | | | SERVICES, CORE | BERTRAM [...] - | | | | | | [place] | | + + + + + + + + | Specimen | + + | Blood - Blood | + + + + + + + | Performing | Address | City/State/Zipcode | Phone Number | | Organization | | | | + + + + + | [facility] | [address] | [place] [address] | | | [place] | | | | + + + [...] [facility] | [address] | [place], [place] | | | [facility] CARE | [address] | [address] | | | TESTS | | | [...] [facility] | [address] | [place] [address] | | | SERVICES, CORE | PARK [...] | + + + + + | [facility] | [address] | [place] [address] | | | SERVICES, CORE | BERTRAM [...] - DAVIDAM | [address] | [place], [place] | | | [facility] | [address] | [address] | | | TESTS | | | [...] | + + + + + | [facility] | [address] | [place] [address] | | | SERVICES, CORE | BERTRAM [...] gas. | | | | | | Kejnoh-se-nhdclt left | | | | | | [...] SANDERS | [address] | [place], [place] | | | [facility] [place] | [address] | [address] | | | TESTS | | | [...] % | [facility] | | | | [facility],[address] | | REG UNIV | | | | Chipsilvana Card, [facility] | | PTH - INTFC | | | | [address] | | | | | | [phone]. | | | | | | Kaitlin [...] [facility] | [address] | [place], [place] | | | UNIV PTH - INTFC | | [address] | | + + + + + [...] | + + + + + | [facility] | [address] | [place] [address] | | | SERVICES, CORE | BERTRAM [...] | + + + + + | [facility] | [address] | [place] [address] | | | SERVICES, CORE | BERTRAM [...] [facility] | [address] | [place], [place] | | | [facility] | [address] | [address] | | | TESTS | | | [...] | + + + + + | [facility] | [address] | [place] [address] | | | ARON, CORE | PARK [...] | + + + + + | [facility] | [address] | [place] [address] | | | SERVICES, CORE | BERTRAM [...] (H) | 60 - 99 mg/dL | [facility] - | | | GLUCOSE, | [...] + + + | [facility] | [address] | [place], [place] | | | [facility] CARE | [address] | [address] | | | TESTS | | | [...] | + + + + + | [facility] | [address] | [place] [address] | | | SERVICES, CORE | PARK [...] | + + + + + | [facility] | [address] | [place] [address] | | | SERVICES, CORE | BERTRAM [...] | + + + + + | [facility] | [address] | [place] [address] | | | SERVICES, CORE | BERTRAM [...] | + + + + + | [facility] | [address] | [place] [address] | | | SERVICES, CORE | PARK [...] [facility] | [address] | [place] [address] | | | SERVICES, CORE | PARK [...] | + + + + + | [facility] | [address] | [place] [address] | | | SERVICES, CORE | PARK [...] + | [facility] - | [address] | [place] [address] | | | [place] | | | [...] | | | Final CULTURE | | [place] | | | | RESULT:Salmonella, | | [...] + | [facility] | [address] | [place] [address] | | | [place] | | | [...] | + + + + + | [facility] | [address] | [place] [address] | | | SERVICES, CORE | BERTRAM [...] (H) | 60 - 99 mg/dL | [facility] - | | | GLUCOSE, | [...] SANDERS | [address] | [place], [place] | | | [facility] | [address] | [address] | | | TESTS | | | [...] [facility] | [address] | [place], [place] | | | CARDIOLOGY | [address] | [address] | | + + + + + [...] [facility] | [address] | [place] [address] | | | SERVICES, CORE | [address] | | | + + + + + CULTURE, BLOOD BACTI & YEAST [facility] (03/12/2012 9:50 PM PST) + + [...] | + + + + + | [facility] | [address] | [place] [address] | | | SERVICES, CORE | BERTRAM [...] [facility] | [address] | [place] [address] | | | SERVICES, CORE | PARK [...] | + + + + + | [facility] | [address] | [place] [address] | | | SERVICES, CORE | PARK [...] - MARILYN | [address] | [place], [place] | | | [facility] | [facility] | [address] | | | TESTS | | | [...] [facility] | [address] | [place] [address] | | | SERVICES, CORE | PARK [...] [facility] | [address] | [place] [address] | | | SERVICES, CORE | PARK [...] [facility] | [address] | [place] [address] | | | SERVICES, | [address] [...] | + + + + + | [facility] | [address] | [place] [address] | | | SERVICES, | [address] [...] | + + + + + | [facility] | [address] | [place] [address] | | | SERVICES, CORE | BERTRAM [...] + + | [facility] | [address] | [place] [address] | | | JANELL SHARP | PARK [...] | + + + + + | [facility] | [address] | [place] [address] | | | JANELL SHARP | [address] [...]
--- OUTSIDE RECORDS SUMMARY | ~2019-03-09 | XMS | Encounter Summary ---
Demographics + + + | Address | [address] | | | [place] [address] | + + + | Home Phone [...] + + + | Author | [facility] | + + + | Organization | [facility] | + + + | Address | Unknown | + + + | Phone | Unavailable | + + + Support + + + + + | Name | Relationship | Address | Phone | + + + + + | Kole Willingham | [place] | [address] | | | | | [place], [place] | | | | | [address] | | + + + + + | Cami Sawyer | ECON | Unknown | | + + + + + Care Team Providers + +------+ + | Care Tin Flipper Name | Role | Phone | + [...] | | | | | Procedures | [place], [place] | [facility] | | | | | CONSULT TO | [address] | for Health | | | | | GI PROCEDURE | Phone: | and Healing, | | | | | UNIT: | [phone] | [address] | | | | | FLEXIBLE | Fax: | [place], [place] | | | | | SIGMOID[facility] | [phone] | [address] | | | | | [place] | | Phone: | | | | | [facility]MO[facility]COP | | [phone] | | | | | Y,BIOPSY | | Fax: | | | | | | | [phone] | +--------+--------+ + + + + Reason [...] schedule tests | | 2016 | | [place] [facility] [address] | [address] | | | | | [address] | [facility], | | | | | Mailcode: [place] | [place] [address] | | | | | [facility] and | [phone] | | | | | [place] [address] | | | | | | [place], [place] | | | | | | [address] | | | | | | [phone] | | | +--------+ + + + [...]
--- OUTSIDE RECORDS SUMMARY | ~2019-03-09 | XMS | Encounter Summary ---
Demographics + + + | Address | [address] | | | [place] [address] | + + + | Home Phone | | + + + | Preferred Language | Unknown | + + + | Marital Status | | + + + | Confucianist Affiliation | Unknown | + + + [...] Team Providers + +------+ + | Care Chairperson Anesthesiology Name | Role | Phone | + [...] [address] | | | | | [place], [place] | [place] [address] | | | | | [address] | [phone] | | | | | [phone] | | | +--------+ + + + [...]
--- OUTSIDE RECORDS SUMMARY | ~2019-03-09 | XMS | Encounter Summary ---
Demographics + + + | Address | [address] | | | [place] [address] | + + + | Home Phone | | + + + | Preferred Language | Unknown | + + + | Marital Status | | + + + | Sabianism Affiliation | NRP | + + + | Race | White | + + + | Ethnic Group | Not or | + + + Author + + + | Author | [facility] | + + + | Organization | [facility] | + + + | Address | Unknown | + + + | Phone | Unavailable | + + + Support + + + + + | Name | Relationship | Address | Phone | + + + + + | Kole Willingham | [place] | [address] | | | | | [place], [place] | | | | | [address] | | + + + + + | Cami Sawyer | ECON | Unknown | | + + + + + Care Team Providers + +------+ + | Care Biodiesel Plant Manager Name | Role | Phone | [...] | | 2016 | | Center at [facility] [address] | [address] | | | | | [address] | [facility] | | | | | Mailcode: [place] | [place] [address] | | | | | [facility] and | [phone] | | | | | [place] [address] | | | | | | [place], [place] | | | | | | [address] | | | | | | [phone] | | | +--------+ + + + [...]
--- OUTSIDE RECORDS SUMMARY | ~2019-03-09 | XMS | Clinical Summary ---
Demographics + + + | Address | [address] | | | [place] [address] | + + + | Home Phone [...] | Author | [facility] (Historical as of | | | 11-25-18) | + + + | Organization | [facility] (Historical as of | | | 11-25-18) [...] Team Providers + +------+ + | Care Irish Moss Operator Name | Role | Phone | [...] Overview: Added automatically from request for surgery [id number] | + + + + + | [...] | Stricture esophagus dilated with bougue 20 iraqi 04/21/2014 | 04/22/2014 | + + + [...] +------+-------+ + | MEDICARE | MEDICA | [id number] | | | [address] | | | RE | | | | [place] [address] | | | IP-OP | | | | | + +--------+ +------+-------+ + | [facility] | UNITED | [id number] | | | | | | | [...] Self | [birth year] | Home: | [address] | | | al/Fam | | 1956 | [phone] [place] | | | bianca | | | [phone] | [address] | + +--------+ +--------+ + +
--- OUTSIDE RECORDS SUMMARY | ~2019-03-09 | XMS | Clinical Summary ---
Demographics + + + | Address | [address] | | | [place] [address] | + + + | Home Phone | | + + + | Preferred Language | Unknown | + + + | Marital Status | | + + + | Mosque Affiliation | Unknown | + + + [...] Team Providers + +------+ + | Care Orthotic/Prosthetic Clinician Name | Role | Phone | + [...] Overview: Added automatically from request for surgery [id number] | + + + + + | [...] | Stricture esophagus dilated with bougue 20 albanian 04/21/2014 | 04/22/2014 | + + + [...] + + | 03/15/ | Telephone | General Surgery | Severo, | Appointment | | 2018 | | | JENARO Ruvalcaba | | +--------+ + + + + | 03/15/ | Telephone | General Surgery | Severo, | Appointment | 2018 | | | JENARO Ruvalcaba | | +--------+ + + + + | 03/12/ | Telephone | General Surgery | Severo, | Follow-up | 2018 | | | JENARO Ruvalcaba | | +--------+ + + + + [...] + + + + Plan of Treatment +--------+---------+ + + + | Date | Type | Specialty | Care Team | Description | +--------+---------+ + + + | 03/27/ | Office | General Surgery | Severo, | | | 2019 | Visit | | JENARO [address] | | | | | | [address] | | | | | | [place] [address] | | | | | | [phone] | | | | | | | | +--------+---------+ + + + + + + + + | Health [...] +--------+ +---------+--------+ | MEDICARE | MEDICA | [id number] | 04/11/19 | [phone] | | Medica | | | RE | | 13-Pre | 5 | | re | | | PART A | | sent | | | | | | AND B | | | | | | + +--------+ +--------+ +---------+--------+ | MEDICARE | MEDICA | [id number] | 04/11/19 | [phone] | | Medica | | | RE | | 13-Pre | 5 | | re | | | PART A | | sent | | | | | | AND B | | | | | | + +--------+ +--------+ +---------+--------+ | AARP | AARP | [id number] | 04/11/19 | [phone] | | Indemn [...] bian[place] | | | 8 (Home) | [address] | + +--------+ +--------+ + + | Smita Willingham | Person | Self | [birth year] | [address] | | | al/Fam | | 1956 | [phone] | [place], [place] | | | bianca | | | 8 (Candler) | [address] | + +--------+ +--------+ + + Advance Directives + + + + + | Type | Date Recorded | Patient | Explanation | | | | Ribbon Blockmaker | | + + + + + | Power of | | | | | Ground School Instructor | | | | + + + + + | Advance | | | | | Directive | | | | + + + + +
--- OUTSIDE RECORDS SUMMARY | ~2019-03-09 | XMS | Encounter Summary ---
Demographics + + + | Address | [address] | | | [place] [address] | + + + | Home Phone | | + + + | Preferred Language | Unknown | + + + | Marital Status | | + + + | Oriental Orthodox Affiliation | Unknown | + + [...] Team Providers + +------+ + | Care Branch Lending Manager Name | Role | Phone | [...] Unknown | | | | | [place], [place] | [phone] | | | | | [address] | | | | | | [phone] | | | +--------+ + + + [...]
--- OUTSIDE RECORDS SUMMARY | ~2019-03-09 | XMS | Encounter Summary ---
Demographics + + + | Address | [address] | | | [place] [address] | + + + | Home Phone | | + + + | Preferred Language | Unknown | + + + | Marital Status | | + + + | Rastafarian Affiliation | NRP | + + + | Race | White | + + + | Ethnic Group | Not or | + + + Author + + + | Author | [facility] | + + + | Organization | [facility] | + + + | Address | Unknown | + + + | Phone | Unavailable | + + + Support + + + + + | Name | Relationship | Address | Phone | + + + + + | Kole Willingham | [place] | [address] | | | | | [place], [place] | | | | | [address] | | + + + + + | Cami Sawyer | ECON | Unknown | | + + + + + Care Team Providers + +------+ + | Care Supplier Development Manager Name | Role | Phone | [...] | | 2016 | | Center at [facility] [address] | | - General | | | | [address] | | | | | | Mailcode: Center | | | | | | [facility] and | | | | | | [facility], [facility] [address] | | | | | | [place], [place] | | | | | | [address] | | | | | | [phone] | | | +--------+ + + + [...]
--- OUTSIDE RECORDS SUMMARY | ~2019-03-09 | XMS | Encounter Summary ---
Demographics + + + | Address | [address] | | | [place] [address] | + + + | Home Phone | | + + + | Preferred Language | Unknown | + + + | Marital Status | | + + + | Worship Affiliation | Unknown | + + + | Race | Unknown | + + + | Ethnic Group | Unknown | + + + Author + + + | Author | [facility] | | | and [place] | + + + | Organization | [facility] | | | [...] Team Providers + +------+ + | Care Musical Performer Name | Role | Phone | + +------+ + PCP | Unavailable | + +------+ + Encounter Details +--------+ + + + + | Date | Type | Department | Care Team | Description | +--------+ + + + + | 10/09/ | Hospital | [facility] | Conversion | | | 2016 | Encounter | [facility] | Transaction, | | | | | [address] | Provider Unknown | | | | | [place], [place] | | | | | | [phone] | (Fax) | | | | | [phone] | | | +--------+ + + + [...]
--- OUTSIDE RECORDS SUMMARY | ~2019-03-09 | XMS | Encounter Summary ---
Demographics + + + | Address | [address] | | | [place] [address] | + + + | Home Phone [...] Team Providers + +------+ + | Care Practice Support Specialist Name | Role | Phone | + +------+ + PCP | Unavailable | + +------+ + Encounter Details +--------+ + + + + | Date | Type | Department | Care Team | Description | +--------+ + + + + | 04/12/ | Hospital | [facility] | Dionicio, | Acute | | 2015 - | Encounter | [facility] | Bonnieroxane Jones, | gastroenteritis; PAF | | | | INTENSIVE CARE UNIT | MD Jaspal [address] | (paroxysmal atrial | | 04/23/ | | [address] | HEATHER E KAMI, | fibrillation) ([facility]); | | 2014 | | [place], [place] | [place] [address] | Sepsis(995.91) | | | | [address] | [phone] | (HCC); Acute | | | | [phone] | | systolic heart | | | | | | failure (HCC); Acute | | | | | | respiratory failure | | | | | | ([facility]); Aspiration | | | | | | pneumonia ([facility]); | | | | | | COPD (chronic | | | | | | obstructive | | | | | | pulmonary disease) | | | | | | ([facility]); Crohn's | | | | | | disease ([facility]); | | | | | | 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 Hospital [...] , recurrent UTI, admitted on 04/06/14 in [facility] for nausea, vomiting pre viously ingested [...] ransfered from [facility] to [facility]. SEE assessment and plan for summary of [...] Procedure: ESOPHAGOGASTRODUODENOSCOPY; Surgeon: Bony Petty MD; Location: [facility] BEDSIDE PROCEDURE; Service: Gastroenterology; Laterality: [...] 04/23/14 0528 Gross per 24 hour Intake 62015 ml Output 6589 ml Net 7458 ml [...] fibrillation) Stricture esophagus dilated with bougue 20 st helenian 04/21/2014 ASSESSMENT & PLAN Intrabd bleeding Abd/spleen [...] on hemaglobin trending down. Called general surgeon commercial solar sales consultant. No interventional radiology. Pt taken to OR [...] history from [facility] records Small bowel resection with 17 inches [...] Reported Idiopathic Cardiomyopathy: LVEF 30% by ECHO ([place]). Normal EF 60-65% ECHO at [facility] 04/20/14 Impression 1. Overall left ventricular systolic [...] at home prior to this admission ad [facility]. This could have been due to her esophageal stricture which was just diagnosed 04/21/14 and treated with dilatation. Last sputum 04/19/14 Description SPUTUM GRAM STAIN GREATER THAN 10 WBCS/LPF GRAM STAIN LESS THAN 10 SEC/LPF GRAM STAIN NO ORGANISMS SEEN CULTURE 1+ CULTURE MATTHIEU ALBICANS A CULTURE Testing performed at [facility], [address] [place] [address] Resulting PCP negative. ID: B/L Aspiration pneumonia [...] pt. From [facility] positive blood culture from 04/08/14 Staph capitis S to vanco, cipr, gent, levo, tigecycline I clinda. GI/NUTRITION: Crohn's disease. " for at least 40 yrs" As an outpt pt was on prilosec, remicade ( every 6 weeks via rolando cath) and prednisone 5mg po daily ( from 04/06/2014 H and P admission for n/v/d abd pain and dehydration [place], [place]) Unknown last colonoscopy. Unknown last EGD [...] u p with hemotologist. Acquired record from [facility] and discussed 04/21/14 night with obed nd and daughter to acquire records from [facility] where pt has had additional work up in the past . From [facility] records. Confirmed that pt is on outpt [...] 04/23/14219 Date of Service: 04/23/14219 Status: Signed Conflicts Analyst: Yokasta Torrez RN (Registered Nurse) 5 Laps left in patient post op for packing. Trice Moon - 04/23/2014 12:22 AM PSTFormatting of this note might be different from t he original. Significant Event by Trice Fagan MD at 04/23/1421 Author: Trice Fagan MD Service: Cardiovascular Tech Author Type: Cardiovascular Tech Filed: 04/23/1440 Date of Service: 04/23/1421 Status: Addendum Conflicts Analyst: Trice Fagan MD (Physician) Related Notes: Original [...] at 04/22/142010 Author: Jannet Shields MD Service: Cardiovascular Tech Author Type: Cardiovascular Tech Filed: 04/22/142118 Date of Service: 04/22/142010 Status: Addendum Conflicts Analyst: Jannet Shields MD (Physician) Related Notes: Original Note by Jannet Shields MD (Physician) filed at 04/22/14 2177 [facility] Service: Cardiovascular Tech Progress Note Mackenzie Hartley 58 y.o. Hospital [...] , recurrent UTI, admitted on 04/06/14 in [facility] for nausea, vomiting pre viously ingested [...] given re intubation 04/19/14: Care conference with Cardiovascular Tech/AIMS. Continue with full treatment. Heparin infusi on was started due to the splenic artery thrombosis. 04/20/14: Dr. Petty was consult from GI to scope the patient prior to extubation. 04/22/14: Hemorrhagic shock from intraperitoneal bleed on heparin, [place], Right IJ Cordis, 6 units PRBC, 2 [...] Procedure: ESOPHAGOGASTRODUODENOSCOPY; Surgeon: Bony Petty MD; Location: [facility] BEDSIDE PROCEDURE; Service: Gastroenterology; Laterality: [...] fibrillation) Stricture esophagus dilated with bougue [address] st helenian 04/21/2014 Crohn's disease Microcytic anemia Aspiration pneumonia [...] stable. Idiopathic Cardiomyopathy: LVEF 60% here at [facility] improved over the 30% noted in [place] [...] dilated by Dr Petty with a [address] helenian robert 04/21/14 Intraperitoneal bleed/Hemorrhagic Shock: While on [...] Date of Service: 04/22/14 1315 Status: Signed Conflicts Analyst: Cher Bailey RN (Registered Nurse) Patient increasingly [...] Author: LEVI Acharya Service: (none) Author Type: Contract Post Office Clerk Filed: 04/22/14 1124 Date of Service: 04/22/14 1122 Status: Signed Conflicts Analyst: LEVI Acharya (Contract Post Office Clerk) Attended morning rounds. No family present during [...] 1458 Date of Service: 04/22/14814 Status: Signed Conflicts Analyst: Rich Jiménez PT (Physical Therapist) 04/22/14814 PT [...] 04/21/141824 Date of Service: 04/21/141821 Status: Signed Conflicts Analyst: Taylor Trevino RN (Registered Nurse) Attempted to call pt's Norm [phone] to obtain consent to give blood. No answe r, will attempt to call again soon. TAYLOR TREVINO 04/21/2014 onver roshan Transaction, Provider Unknown - 04/21/2014 4:46 PM PST Progress Notes by Darline Hartley RN at 04/21/14 1646 Author: Darline Hartley RN Service: (none) Author Type: Registered Nurse Filed: 04/21/14 1647 Date of Service: 04/21/14 164 Status: Signed Conflicts Analyst: Darline Hartley RN (Registered Nurse) Savary dilators used incrementally at 18Fr and 20Fr. DARLINE HARTLEY onver roshan Transaction, Provider Unknown - 04/21/2014 3:30 PM PST Progress Notes by Taylor Trevino RN at 04/21/14 1530 Author: Taylor Trevino RN Service: (none) Author Type: Registered Nurse Filed: 04/21/14 7787 Date of Service: 04/21/14 1530 Status: Signed Conflicts Analyst: Taylor Trevino RN (Registered Nurse) Dr Petty [...] Date of Service: 04/21/14 1340 Status: Signed Conflicts Analyst: Leah Chris RPH (Pharmacist) Day 10 Vanco [...] Date of Service: 04/21/14 1015 Status: Signed Conflicts Analyst: Jaz Mobley PT (Physical Therapist) 04/21/14 1015 [...] 04/21/14 1008 Author: Trice Fagan MD Service: Cardiovascular Tech Author Type: Cardiovascular Tech Filed: 04/21/14 3599 Date of Service: 04/21/14 100 Status: Signed Conflicts Analyst: Trice Fagan MD (Physician) [facility] Service: Cardiovascular Tech Progress Note Mackenzie Hartley 58 y.o. Hospital [...] , recurrent UTI, admitted on 04/06/14 in [facility] for nausea, vomiting pre viously ingested [...] given re intubation 04/19/14: Care conference with Cardiovascular Tech/AIMS. Continue with full treatment. Heparin infusi on [...] stable. Idiopathic Cardiomyopathy: LVEF 30% by ECHO ([place]). ECHO here at [facility] 04/20/14 Impression 1. Overall left ventricular systolic [...] (none) Author Type: Registered Nurse Filed: 04/20/14 0669 Date of Service: 04/20/14 170 Status: Signed Conflicts Analyst: Taylor Trevino RN (Registered Nurse) Labs drawn from [facility] per protocol. Flushed with 20ML NS, jhony back and wasted 8ML blo od and then jhony sample. Labs sent to lab per orders. TAYLOR TREVINO 04/20/2014 onver roshan Transaction, Provider Unknown - 04/20/2014 2:54 PM PST Progress Notes by Pia Garcia RD, ALO at 04/20/14 1266 Author: Pia Garcia RD, CD Service: (none) Author Type: Registered Dietitian Filed: 04/20/14 8228 Date of Service: 04/20/14 4254 Status: Signed Conflicts Analyst: Pia Garcia RD, CD (Registered Dietitian) Nutrition [...] Progress Notes by JENARO Perez at 04/20/14 4918 Author: JENARO Perez Service: Cardiovascular Tech Author Type: Cardiovascular Tech Filed: 04/20/14 0204 Date of Service: 04/20/141402 Status: Signed Conflicts Analyst: JENARO Perez (Nurse Practitioner) [facility] Service: Cardiovascular Tech Progress Note Mackenzie Hartley 58 y.o. Hospital Day: LOS: 8 days Post-Op Day: * No surgery found * Consulting Physicians Treatment Team: Consulting Physician: Eric Chavez MD Consulting Physician: Bony Petty MD Admitting Provider: Bonnie Greenberg MD SUBJECTIVE Patient Summary: Per Dr Greenberg: The patient is a 58 y.o. 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 Continue with full treatment. Heparin infusi on [...] Life issues: Was a DNR while in [place] but consented to be intubated prior to [...] stable. Idiopathic Cardiomyopathy: LVEF 30% by ECHO ([place]). PULM: Pulmonary Edema: Related to cardiomyopathy and [...] 04/20/14899 Date of Service: 04/20/14899 Status: Signed Conflicts Analyst: Leah Chris RPH (Pharmacist) Day 9 Vanco Tx Todays Scr= 0.58, WBC= 21.3 with estim CrCl= 110.5 ml/min Pharmacist: LEAH CHRIS 04/20/2014 8:59 AM onver roshan Transaction, Provider Unknown - 04/19/2014 7:53 PM PST Progress Notes by Mila Pinedo at 04/19/141952 Author: Mila Pinedo Service: (none) Author Type: Filed: 04/19/142001 Date of Service: 04/19/141952 Status: Signed Conflicts Analyst: Mila Pinedo (Warehouse Person) AIM care conference with Dr Chavez and Maryjane AIM/CM expanded to include ICU Cardiovascular Tech and pts current RN. Present also were Mackenzie's , Kole, and two of the four children, Silva and Otilia. Cardiovascular Tech gave a thorough explanation of the progression [...] for a good part of her vocation. Cardiovascular Tech asked for another care conference on Friday 04/21 to update the family on Mackenzie' s progress. oLyly mills MSW - 04/19/2014 4:14 PM PST Progress Notes by LEVI Cervantes at 04/19/14 1614 Author: LEVI Cervantes Service: (none) Author Type: Contract Post Office Clerk Filed: 04/19/14 3534 Date of Service: 04/19/14 1614 Status: Signed Conflicts Analyst: LEVI Cervantes (Contract Post Office Clerk) SOPHIE SAEED, SOPHIE SIMS, Warehouse Person, pt's RN Kassandra Garrett and ICU Cardiovascular Tech met with family to ex plore goals of care. ICU Cardiovascular Tech thoroughly explained pt's course of care during [...] and dtrs Angi and Otilia live in [place], [place]. Family e xpressed strong concerns that [...] several months and had see n an post doctoral researcher for the mouth and throat sores to no avail. Pt's spouse Kole and pt's dtr express tremendous frustration over what they perceive has been poor med ical management of pt's illnesses prior to this admission. ICU Cardiovascular Tech recommended a wo rk up of pt's [...] 04/19/141327 Date of Service: 04/19/141327 Status: Signed Conflicts Analyst: Paula Barnes RPH (Pharmacist) Clinical Pharmacy Note: [...] Note by Rhianna Blackwood RN at 04/19/14 1155 Author: Rhianna Blackwood RN Service: (none) Author Type: Registered Nurse Filed: 04/19/14 1156 Date of Service: 04/19/14 115 Status: Signed Conflicts Analyst: Rhianna Blackwood RN (Registered Nurse) Wound care [...] Progress Notes by JENARO Perez at 04/19/14 2879 Author: JENARO Perez Service: Cardiovascular Tech Author Type: Cardiovascular Tech Filed: 04/20/14 0749 Date of Service: 04/19/14 8459 Status: Signed Conflicts Analyst: JENARO Perez (Nurse Practitioner) [facility] Service: Cardiovascular Tech Progress Note Mackenzie Odilia 58 y.o. Hospital Day: LOS: 7 days Post-Op Day: * No surgery found * Consulting Physicians Treatment Team: Consulting Physician: Eric Chavez MD Admitting Provider: Bonnie Greenberg MD SUBJECTIVE Patient Summary: Per Dr Greenberg: The patient is a 58 y.o. 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 Continue with full treatment. Events Overnight: No [...] Life issues: Was a DNR while in [place] but consented to be intubated prior to [...] stable. Idiopathic Cardiomyopathy: LVEF 30% by ECHO ([place]). PULM: Pulmonary Edema: Related to cardiomyopathy and [...] Author: LEVI Acharya Service: (none) Author Type: Contract Post Office Clerk Filed: 04/19/14 113 Date of Service: 04/19/14 113 Status: Signed Conflicts Analyst: LEVI Acharya (Contract Post Office Clerk) Care conference arranged for today at 2pm with Dr. Chavez. Await decision of family regardin g continued aggressive care vs. Comfort care. onver roshan Transaction, Provider Unknown - 04/19/2014 9:10 AM PST Therapy Progress Note by Rich Jiménez PT at 04/19/14 0910 Author: Rich Jiménez PT Service: (none) Author Type: Physical Therapist Filed: 04/19/14 1153 Date of Service: 04/19/14 0910 Status: Signed Conflicts Analyst: Rich Jiménez PT (Physical Therapist) 04/19/14 0910 PT Last Visit PT Received On 04/19/14 Requires PT Follow Up On hold yly Krishnamurthy MSW - 04/18/2014 5:22 PM PST Progress Notes by LEVI Cervantes at 04/18/14 172 Author: LEVI Cervantes Service: (none) Author Type: Contract Post Office Clerk Filed: 04/18/141723 Date of Service: 04/18/141721 Status: Signed Conflicts Analyst: LEVI Cervantes (Contract Post Office Clerk) SOPHIE SIMS was summoned to pt's room by pt's RN. Two adult dtr's were bedside. TOP IRONER asked it they would be able to meet with SOPHIE service , ship's cook/PUBLIC HEALTH WORKER, ICU TOP IRONER and torpedo shooter vero hoover to discuss goals of care. [...] Date of Service: 04/18/14 1419 Status: Signed Conflicts Analyst: Rich Jiménez PT (Physical Therapist) 04/18/14 1419 PT Last Visit PT Received On 04/18/14 Requires PT Follow Up On hold onver roshan Transaction, Provider Unknown - 04/18/2014 12:07 PM PST Case Management by LEVI Acharya at 04/18/14 1207 Author: LEVI Acharya Service: (none) Author Type: Contract Post Office Clerk Filed: 04/18/14 1210 Date of Service: 04/18/14 1207 Status: Signed Conflicts Analyst: LEVI Acharya (Contract Post Office Clerk) called pt's spouse Kole. Spoke with him [...] one of them to accompany him to [place] and is waiting to hear from the [...] Author: LEVI Cervantes Service: (none) Author Type: Contract Post Office Clerk Filed: 04/18/14 1033 Date of Service: 04/18/14 103 Status: Signed Conflicts Analyst: LEVI Cervantes (Contract Post Office Clerk) AIM TOP IRONER called pt's spouse Kole using phone contact number on [facility] Best RN CM progress not e. No [...] 04/18/14930 Date of Service: 04/18/14930 Status: Signed Conflicts Analyst: Paula Barnes RPH (Pharmacist) Clinical Pharmacy Note: Vancomycin Day 7 No trough ordered today Dose @ 1400 Vancomycin 1250mg Daily IVPB Improvement in Scr. If this is sustained, will check level tomorrow to see we are not unde rdosing. Paula Barnes RP 04-18-2014 Mai Madrigal ARNP - 04/18/2014 6:42 AM PST Progress Notes by JENARO Mcdermott at 04/18/14 0642 Author: JENARO Mcdermott Service: Cardiovascular Tech Author Type: Nurse Practitioner Filed: 04/18/14 1137 Date of Service: 04/18/14 0642 Status: Signed Conflicts Analyst: JENARO Mcdermott (Nurse Practitioner) [facility] Service: Cardiovascular Tech Progress Note Mackenzie Hartley 58 y.o. Hospital [...] COPD, recurrent UTI, admitted on 04/06/14 in [facility] for nausea, vomiti ng previously ingested [...] Life issues: Was a DNR while in [place] but convinced to be intubated prior to [...] stable. Idiopathic Cardiomyopathy: LVEF 30% by ECHO ([place]). Lasix 20mg today (04/18) PULM: Pulmonary Edema: [...] 04/17/141411 Date of Service: 04/17/141411 Status: Signed Conflicts Analyst: Paula Barnes RPH (Pharmacist) Clinical Pharmacy Note: Vancomycin Day 6 Vancomycin trough today at 1300 was 17.5 Scr 0.96 mg/dL CrCl 66.8 ml/min WBC 19.2 Continue Vancomycin 1250 mg IV q24h Dose at 1400 Paula Barnes RP 04-17-2014 onver roshan Transaction, Provider Unknown - 04/17/2014 11:07 AM PST Case Management by LEVI Acharya at 04/17/14 1107 Author: LEVI Acharya Service: (none) Author Type: Contract Post Office Clerk Filed: 04/17/148 Date of Service: 04/17/141106 Status: Signed Conflicts Analyst: LEVI Acharya (Contract Post Office Clerk) Pt re-intubated yesterday. Dr. Chavez to consult [...] 04/17/1445 Date of Service: 04/17/14939 Status: Signed Conflicts Analyst: Jessica Huerta PT (Physical Therapist) 04/17/14939 PT Last Visit PT Received On 04/17/14 Requires PT Follow Up On hold (see comments) Other Comments Comments Pt remains intubated. Awaiting new orders when/if appropriate. Mai Madrigal ARNP - 04/17/2014 8:58 AM PST Progress Notes by JENARO Mcdermott at 04/17/14 0858 Author: JENARO Mcdermott Service: Cardiovascular Tech Author Type: Nurse Practitioner Filed: 04/17/14 1237 Date of Service: 04/17/1458 Status: Addendum Conflicts Analyst: JENARO Mcdermott (Nurse Practitioner) Related Notes: Original Note by JENARO Mcdermott (Nurse Practitioner) filed at 10/23 1111 [facility] Service: Cardiovascular Tech Progress Note Mackenzie Hartley 58 y.o. Hospital Day: LOS: 5 days Post-Op Day: * No surgery found * Consulting Physicians Treatment Team: Consulting Physician: Eric Chavez MD Admitting Provider: Bonnie Greenberg MD SUBJECTIVE Patient Summary: Per Dr Greenberg: The patient is a 58 y.o. 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 Will use prophylactic dose Lovenox, & consider warfarin PAF: Paroxysmal Atrial Fib treated with amiodarone now staying in [place]. Idiopathic Cardiomyopathy: LVEF 30% by ECHO from recent ECHO in [place] PULM: Pulmonary Edema: Related to cardiomyopathy and [...] Notes by Nadir Yee RPH at 04/16/14 6393 Author: Nadir Yee RPH Service: Pharmacy Author Type: Pharmacist Filed: 04/16/14 1135 Date of Service: 04/16/14 1541 Status: Signed Conflicts Analyst: Nadir Yee RPH (Pharmacist) Vancomycin day 5, trough at 1300 today was 19.3 (goal 15-20). Will continue at same dosing and recheck a trough level on 04/17 at 1300. onver roshan Transaction, Provider Unknown - 04/16/2014 1:25 PM PST Progress Notes by Jacoby Muñoz RD at 04/16/14 1322 Author: Jacoby Muñoz RD Service: (none) Author Type: Registered Dietitian Filed: 04/16/14 1079 Date of Service: 04/16/14 1325 Status: Signed Conflicts Analyst: Jacoby Muñoz RD (Registered Dietitian) Nutrition Follow-Up [...] Rich Jiménez, PT at 04/16/14 1222 Author: iRch Jiménez PT Service: (none) Author Type: Physical Therapist Filed: 04/16/14 1921 Date of Service: 04/16/14 1222 Status: Signed Conflicts Analyst: Rich Jiménez PT (Physical Therapist) 04/16/14 1222 [...] Date of Service: 04/16/14 1151 Status: Signed Conflicts Analyst: Nadir Yee RPH (Pharmacist) Vancomycin day 5, est crcl 74.5ml/min, awaiting trough level at 1300 today. onver roshan Transaction, Provider Unknown - 04/16/2014 11:37 AM PST Case Management by Alessia Smith RN at 04/16/14 1137 Author: Alessia Smith RN Service: (none) Author Type: Registered Nurse Filed: 04/16/14 1618 Date of Service: 04/16/14 1137 Status: Addendum Conflicts Analyst: Alessia Smith RN (Registered Nurse) Related Notes: Original Note by Alessia Smith RN (Registered Nurse) filed at 04/16/14 9979 Tried to call but number on facesheet is non-functioning. Called [facility] for t elephone number (they have same number). They will also fax a page from pt.s last admission to them that states pt.iIs full code. Will continue to try and connect with per Dr. Hsu request. Kole's phone as listed in the room is [phone]. Spoke with him, he didn't have plans to visit today, he is unemployed and funds are tight. Will let Dr. Segundo know and pos sible phone contact to happen this afternoon. 1300 Kole's number and info given to Dr. Segundo. . Also showed Dr. Segundo fax from [facility], d/c summary from 04/12/14, documenting change from [...] and only recently decided full code at [facility]. Kole to consult 4 adult children. Will contin ue aggressive care for another day or two per Dr Segundo. onver roshan Transaction, Provider Unknown - 04/16/2014 10:48 AM PST Nurse Progress Note by Becka Lama RN at 04/16/14 1048 Author: Becka Lama RN Service: (none) Author Type: Registered Nurse Filed: 04/16/14 1049 Date of Service: 04/16/14 1048 Status: Signed Conflicts Analyst: Becka Lama RN (Registered Nurse) Attempted to visit pt for Coumadin Education. Pt intubated in ICU. Coumadin education pina klet left on chart to review with pt as appropriate. Jannet Roach MD - 04/16/2014 5:31 AM PSTFormatting of this note might be different from the briana ginal. Progress Notes by Jannet Shields MD at 04/16/14530 Author: Jannet Shields MD Service: Cardiovascular Tech Author Type: Cardiovascular Tech Filed: 04/16/1449 Date of Service: 04/16/14530 Status: Signed Conflicts Analyst: Jannet Shields MD (Physician) [facility] Service: Cardiovascular Tech Progress Note Mackenzie Hartley 58 y.o. Hospital [...] COPD, recurrent UTI, admitted on 04/06/14 in [facility] for nausea, vomiti ng previously ingested [...] Life issues: Was a DNR while in [place] but convinced to be intubated prior to tr cristina, will consult palliative care service and engage in conversation about this i ssue CV: Splenic artery thrombosis. Will use prophylactic dose Lovenox, & consider warfarin PAF: Paroxysmal Atrial Fib treated with amiodarone now staying in [place]. Idiopathic Cardiomyopathy: LVEF 30% by ECHO from recent ECHO in [place] PULM: Pulmonary Edema: Related to cardiomyopathy and [...] 04/15/141801 Date of Service: 04/15/141801 Status: Signed Conflicts Analyst: Hipolito Isaac () Pt sleeping. Will continue to provide care as needed/requested. Chaplain Chandler onver roshan Transaction, Provider Unknown - 04/15/2014 3:45 PM PST Therapy Progress Note by Rich Jiménez PT at 04/15/14 1545 Author: Rcih Jiméenz PT Service: (none) Author Type: Physical Therapist Filed: 04/15/14 1743 Date of Service: 04/15/141544 Status: Signed Conflicts Analyst: Rich Jiménez PT (Physical Therapist) 04/15/14 1545 [...] Author: LEVI Acharya Service: (none) Author Type: Contract Post Office Clerk Filed: 04/15/14 1150 Date of Service: 04/15/14 1146 Status: Addendum Conflicts Analyst: LEVI Acharya (Contract Post Office Clerk) Related Notes: Original Note by LEVI Acharya (Contract Post Office Clerk) filed at 04/15/14 1148 Attended morning rounds. Pt is now on bi-pap. called and received update from RN. Informed that he would not be visiting pt today. He has not visited pt since her admit. I have placed pt on list at [facility] as a back up plan as she will likely need SNF for reha b. PT notes indicate this as well. [facility] - [phone] onver roshan Transaction, Provider Unknown - 04/15/2014 8:12 AM PST Progress Notes by Nadir Yee RPH at 04/15/14811 Author: Nadir Yee RPH Service: Pharmacy Author Type: Pharmacist Filed: 04/15/14811 Date of Service: 04/15/14811 Status: Signed Conflicts Analyst: Nadir Yee RPH (Pharmacist) Vancomycin day 4, [...] at 04/15/14644 Author: Jannet Shields MD Service: Cardiovascular Tech Author Type: Cardiovascular Tech Filed: 04/15/14 0702 Date of Service: 04/15/14644 Status: Signed Conflicts Analyst: Jannet Shields MD (Physician) [facility] Service: Cardiovascular Tech Progress Note [facility] 58 [facility] [...] COPD, recurrent UTI, admitted on 04/06/14 in [facility] for nausea, vomiting previously ing ested [...] 04/14/141850 Date of Service: 04/14/141850 Status: Signed Conflicts Analyst: Alireza Vides RPH (Pharmacist) vanco level came back high at 33.0. Will hold current dose and redraw a level tomorrow morn ing with am labs. Goal trough 15-20. onver roshan Transaction, Provider Unknown - 04/14/2014 1:36 PM PST Therapy Progress Note by Juma Bazzi PT at 04/14/14 7215 Author: Juma Bazzi PT Service: (none) Author Type: Physical Therapist Filed: 04/14/14 1707 Date of Service: 04/14/141335 Status: Signed Conflicts Analyst: Juma Bazzi PT (Physical Therapist) 04/14/14 1336 PT Last Visit PT Received On 04/14/14 Reason for Treatment Deconditioning;Other (comment) (Acute Resp Failure; co-morbidities) Requires PT Follow Up Awaiting tx order Follow up PT Only? Yes (Further mobility assessment) PT Eval/Reassessment Date 04/14/14 Assistance Required 1 person;2 person Crime Scene Technician Needed No Requires PT Follow Up Awaiting [...] pt's mentation progresses. Prior Function Level of [place] Independent with ADLs;Independent with functional mobility;Independe nt [...] Date 04/14/14 Assistance Required 1 person;2 person Crime Scene Technician Needed No Precautions Other Precautions Fall risk; [...] Date of Service: 04/14/14 1210 Status: Signed Conflicts Analyst: Deborah Torres () This a new pt. Attempted visit, but pt is sedated and on bi-pap. No familly present at this time. Chaplain Deborah Torres onver roshan Transaction, Provider Unknown - 04/14/2014 9:42 AM PST Case Management by LEVI Acharya at 04/14/14941 Author: LEVI Acharya Service: (none) Author Type: Contract Post Office Clerk Filed: 04/14/14942 Date of Service: 04/14/14941 Status: Signed Conflicts Analyst: LEVI Acharya (Contract Post Office Clerk) 04/14/14938 Discharge Planning Evaluation Admitting Diagnosis acute [...] assist from . May need HHPT via [place]. May n eed IPR?? DEMARCO MONTEZ onver roshan Kapooraction, Provider Unknown - 04/14/2014 9:29 AM PST Case Management by LEVI Acharya at 04/14/14928 Author: LEVI Acharya Service: (none) Author Type: Contract Post Office Clerk Filed: 04/14/14943 Date of Service: 04/14/14928 Status: Signed Conflicts Analyst: LEVI Acharya (Contract Post Office Clerk) Pt is sleeping with oxymask on. She was extubated early this morning. is not at e bedside. I called to obtain assessment. Zeferino Sheets MD - 04/14/2014 5:29 AM PST Progress Notes by Zeferino Aly MD at 04/14/14528 Author: Zeferino Aly MD Service: Cardiovascular Tech Author Type: Cardiovascular Tech Filed: 04/14/1438 Date of Service: 04/14/14528 Status: Signed Conflicts Analyst: Zeferino Aly MD (Physician) [facility] Service: Cardiovascular Tech Progress Note [facility] 58 [facility] [...] COPD, recurrent UTI, admitted on 04/06/14 in [facility] for nausea, vomiting previously ing ested [...] Notes by Bonnie Greenberg MD at 04/13/14 5851 Author: Bonnie Greenberg MD Service: Cardiovascular Tech Author Type: Physician Filed: 04/13/14 4917 Date of Service: 04/13/14 6569 Status: Signed Conflicts Analyst: Bonnie Greenberg MD (Physician) [facility] Service: Cardiovascular Tech Progress Note [facility] 58 [facility] [...] COPD, recurrent UTI, admitted on 04/06/14 in [facility] for nausea, vomiting previously ing ested [...] Date of Service: 04/13/14 1015 Status: Signed Conflicts Analyst: Osvaldo Allen RRT (Registered Respiratory Therapist) Tried to wean to PS/CPAP but she is not breathing regularly enough. Placed on PRVC with low RR & automode for now. onver roshan Transaction, Provider Unknown - 04/13/2014 9:57 AM PST Case Management by LEVI Acharya at 04/13/14 0909 Author: LEVI Acharya Service: (none) Author Type: Contract Post Office Clerk Filed: 04/13/14 1045 Date of Service: 04/13/14 0957 Status: Addendum Conflicts Analyst: LEVI Acharya (Contract Post Office Clerk) Related Notes: Original Note by LEVI Acharya (Contract Post Office Clerk) filed at 04/13/14 1044 Pt was transferred from [facility]. She is vented. has not called or v isited. I attempted to reach him by home phone ([phone]) however he did not answer. I [facility] stafff has left messages as well. I called the [place] [employer] and requested a drive-by to see if can be reached. [facility] will call me back after they have tried to make contact with . Addendum: Received t/c from pt's , Kole. He states that the police came to his ho me to request that he call us. He stated that we had been leaving messages on patient's cell phone. His cell number is [phone]. I asked him if he would be [...] prefe r that. He requested that the Cardiovascular Tech call him. Provided Dr. Greenberg with 's [...] 04/13/14915 Date of Service: 04/13/14913 Status: Signed Conflicts Analyst: Jaquelin Cat RN (Registered Nurse) Received order [...] 04/12/142033 Date of Service: 04/12/142033 Status: Signed Conflicts Analyst: Britni Shaffer RPH (Pharmacist) Renal Dosing Monitoring: Mcakenzie Hatrley 58 y.o. female Pharmacy dosing for renal [...] 04/12/142032 Date of Service: 04/12/142032 Status: Signed Conflicts Analyst: Britni Shaffer RPH (Pharmacist) Clinical Pharmacy Note: Initiation of Vancomycin Pharmacy Dosing Mackenzie Hartley 58 y.o. female 1.753 m (5' 9") 78.4 kg (172 lb 13.5 oz) Body mass index is 25.51 kg/(m^2). CREATININE Date Value Range Status 04/12/2014 0.96 0.50 - 1.00 mg/dL Final Testing performed at [facility];[address] [place] [address] Estimated CrCl : CREATININE: 0.96 (04/12/14 1731) [...] | | | | | | [address] | | | | | | [place] [address] | | | | | | [phone] | | | | | | | [...] +--------+ + + + | EXTERNAL LAB: [facility] | Routin | 04/22/2014 | | Results for this | | | e | 2:43 PM | | procedure are in the | | | | PST | | results section. | + +--------+ + + + | ELLIOT GROSS CG8, | Routin | 04/22/2014 | | [...] | POC ISTAT, CG8, | Routin | 04/22/2014 | | [...] a dusky-brown | | | friable tissue. Pump Installer sections are submitted in cassettes | | | (A1-A3). FM MICROSCOPIC EXAMINATION: Histologic sections of all | | | submitted blocks are examined by light microscopy. These findings, | | | together with the gross examination, support the pathologic diagnosis. | | | PERFORMING LABORATORY: Professional interpretation and technical | | | preparation was performed by [employer], [facility] | | | [address] [address] (Tomato Pulper Operator: | | | Raphael Yee M.D.; [facility]#: [id number]). Diagnostician: Salty Bolton | | | King [...] | | | Fingerstick | performed at [facility];[address] | | LAB | | | | [address];[place] | | | | | | [address] | | | | + + + [...] EXTERNAL | | | | performed at [facility];[address] | | LAB | | | | [address];[place] | | | | | | [address] | | | | + + + + + + | RED CELL | 3.62 (L)Comment: Testing | 3.70 - 5.10 | EXTERNAL | | | COUNT | performed at [facility];[address] | M/uL | LAB | | | | [address];[place] | | | | | | [address] | | | | + + + + + + | Hgb | 10.5 (L)Comment: Testing | 11.3 - 15.5 | EXTERNAL | | | | performed at [facility];888 | g/dL | LAB | | | | [address];[place] | | | | | | [address] | | | | + + + + + + | Hematocrit, | 31.3 (L)Comment: Testing | 34.0 - 46.0 % | EXTERNAL | | | POC | performed at [facility];[address] | | LAB | | | | [address];[place] | | | | | | [address] | | | | + + + + + + | MCV | 86.5Comment: Testing | 80.0 - 100.0 fl | EXTERNAL | | | | performed at [facility];[address] | | LAB | | | | [address];[place] | | | | | | [address] | | | | + + + + + + | MCH | 29.1Comment: Testing | 27.0 - 34.0 pg | EXTERNAL | | | | performed at [facility];[address] | | LAB | | | | [address];[place] | | | | | | [address] | | | | + + + + + + | MCHC | 33.6Comment: Testing | 32.0 - 35.5 | EXTERNAL | | | | performed at [facility];888 | g/dL | LAB | | | | [address];[place] | | | | | | [address] | | | | + + + + + + | RDW-CV | 46.8Comment: Testing | 37 - 53 fl | EXTERNAL | | | | performed at [facility];[address] | | LAB | | | | [address];[place] | | | | | | [address] | | | | + + + + + + | Platelet | 185Comment: Testing | 150 - 400 K/uL | EXTERNAL | | | Count | performed at [facility];[address] | | LAB | | | Plasma | [address];[place] | | | | | | [address] | | | | + + + + + + | MPV | 7.2Comment: Testing | fl | EXTERNAL | | | | performed at [facility];[address] | | LAB | | | | [address];[place] | | | | | | [address] | | | | + + + + + + | Differentia | MANUALComment: Testing | | EXTERNAL | | | l Type | performed at [facility];[address] | | LAB | | | | [address];[place] | | | | | | [address] | | | | + + + + + + | Nucleated | 2 (H)Comment: Testing | /100WBC | EXTERNAL | | | Red Blood | performed at [facility];[address] | | LAB | | | Cells | [address];[place] | | | | | | [address] | | | | + + + + + + | Segmented | 71Comment: Testing | % | EXTERNAL | | | Neutrophils | performed at [facility];[address] | | LAB | | | Manual | [address];[place] | | | | | | [address] | | | | + + + + + + | % Bands | 13Comment: Testing | % | EXTERNAL | | | | performed at [facility];[address] | | LAB | | | | [address];[place] | | | | | | [address] | | | | + + + + + + | % | 1Comment: Testing | % | EXTERNAL | | | Metamyelocy | performed at [facility];[address] | | LAB | | | petros | [address];[place] | | | | | | [address] | | | | + + + + + + | Lymphocytes | 12Comment: Testing | % | EXTERNAL | | | Manual | performed at [facility];[address] | | LAB | | | | [address];[place] | | | | | | [address] | | | | + + + + + + | Monocytes | 3Comment: Testing | % | EXTERNAL | | | Manual | performed at [facility];[address] | | LAB | | | | [address];[place] | | | | | | [address] | | | | + + + + + + | Absolute | 8.3 (H)Comment: Testing | 1.9 - 7.4 K/uL | EXTERNAL | | | Neutrophils | performed at [facility];[address] | | LAB | | | | [address];[place] | | | | | | [address] | | | | + + + + + + | Bands | 1.5 (H)Comment: Testing | 0 - 0.2 K/uL | EXTERNAL | | | Manual | performed at [facility];[address] | | LAB | | | | [address];[place] | | | | | | [address] | | | | + + + + + + | Absolute | 0.1 (H)Comment: Testing | K/uL | EXTERNAL | | | Metamyelocy | performed at [facility];[address] | | LAB | | | petros | [address];[place] | | | | | | [address] | | | | + + + + + + | Absolute | 1.4Comment: Testing | 1.0 - 3.9 K/uL | EXTERNAL | | | Lymphocytes | performed at [facility];[address] | | LAB | | | | [address];[place] | | | | | | [address] | | | | + + + + + + | Absolute | 0.4Comment: Testing | 0 - 0.8 K/uL | EXTERNAL | | | Monocytes | performed at [facility];[address] | | LAB | | | | [address];[place] | | | | | | [address] | | | | + + + + + + | RBC | RBC AND PLT MORPHOLOGY | | EXTERNAL | | | Morphology | APPEAR NORMALComment: | | LAB | | | | Testing performed at | | | | | | [facility];[address];[place] [address] | | | | + + + [...] | | | Fingerstick | performed at [facility];[address] | | LAB | | | | [address];[place] | | | | | | [address] | | | | + + + [...] EXTERNAL | | | | performed at [facility];[address] | mmol/L | LAB | | | | [address];[place], [place] | | | | | | [address] | | | | + + + [...] EXTERNAL | | | | performed at [facility];[address] | | LAB | | | | [address];[place] | | | | | | [address] | | | | + + + [...] EXTERNAL | | | | performed at [facility];[address] | | LAB | | | | [address];[place], [place] | | | | | | [address] | | | | + + + [...] | | | | | | at [facility];[address] [place] [address] | | | | | | [facility];[place] [address] | | | | + + + [...] | | | Patient | performed at [facility];[address] | | LAB | | | | [address];[place], [place] | | | | | | [address] | | | | + + + [...] | | | | | performed at [facility];[address] | | | | | | [address];[place] | | | | | | [address] | | | | + + + [...] EXTERNAL | | | | performed at [facility];[address] | | LAB | | | | [address];[place], [place] | | | | | | [address] | | | | + + + [...] EXTERNAL | | | | performed at [facility];[address] | | LAB | | | | [address];[place] | | | | | | [address] | | | | + + + + + + | RED CELL | 2.14 (L)Comment: Testing | 3.70 - 5.10 | EXTERNAL | | | COUNT | performed at [facility];[address] | M/uL | LAB | | | | [address];[place] | | | | | | [address] | | | | + + + + + + | Hgb | 6.3 (LL)Comment: CALLED | 11.3 - 15.5 | EXTERNAL | | | | NURSING UNITICU,BEATRICE M | g/dL | LAB | | | | AT 0450 BY KMREAD BACK | | | | | | RESULTS VERIFIEDTesting | | | | | | performed at [facility];[address] | | | | | | [address];[place] | | | | | | [address] | | | | + + + + + + | Hematocrit, | 18.5 (LL)Comment: CALLED | 34.0 - 46.0 % | EXTERNAL | | | POC | NURSING BEATRICE SCOTT | | LAB | | | | M AT 0450 BY KMREAD BACK | | | | | | RESULTS VERIFIEDTesting | | | | | | performed at [facility];[address] | | | | | | [address];[place] | | | | | | [address] | | | | + + + + + + | MCV | 86.4Comment: Testing | 80.0 - 100.0 fl | EXTERNAL | | | | performed at [facility];[address] | | LAB | | | | [address];[place] | | | | | | [address] | | | | + + + + + + | MCH | 29.4Comment: Testing | 27.0 - 34.0 pg | EXTERNAL | | | | performed at [facility];[address] | | LAB | | | | [address];[place] | | | | | | [address] | | | | + + + + + + | MCHC | 34.1Comment: Testing | 32.0 - 35.5 | EXTERNAL | | | | performed at [facility];888 | g/dL | LAB | | | | [address];[place] | | | | | | [address] | | | | + + + + + + | RDW-CV | 42.4Comment: Testing | 37 - 53 fl | EXTERNAL | | | | performed at [facility];[address] | | LAB | | | | [address];[place] | | | | | | [address] | | | | + + + + + + | Platelet | 139 (L)Comment: Testing | 150 - 400 K/uL | EXTERNAL | | | Count | performed at [facility];[address] | | LAB | | | Plasma | [address];[place] | | | | | | [address] | | | | + + + + + + | MPV | 7.3Comment: Testing | fl | EXTERNAL | | | | performed at [facility];[address] | | LAB | | | | [address];[place] | | | | | | [address] | | | | + + + + + + | Differentia | MANUALComment: Testing | | EXTERNAL | | | l Type | performed at [facility];[address] | | LAB | | | | [address];[place] | | | | | | [address] | | | | + + + + + + | Nucleated | 3 (H)Comment: Testing | /100WBC | EXTERNAL | | | Red Blood | performed at [facility];[address] | | LAB | | | Cells | [address];[place] | | | | | | [address] | | | | + + + + + + | Segmented | 85Comment: Testing | % | EXTERNAL | | | Neutrophils | performed at [facility];[address] | | LAB | | | Manual | [address];[place] | | | | | | [address] | | | | + + + + + + | % Bands | 3Comment: Testing | % | EXTERNAL | | | | performed at [facility];[address] | | LAB | | | | [address];[place] | | | | | | [address] | | | | + + + + + + | % | 1Comment: Testing | % | EXTERNAL | | | Metamyelocy | performed at [facility];[address] | | LAB | | | petros | [address];[place] | | | | | | [address] | | | | + + + + + + | Lymphocytes | 8Comment: Testing | % | EXTERNAL | | | Manual | performed at [facility];[address] | | LAB | | | | [address];[place] | | | | | | [address] | | | | + + + + + + | Monocytes | 3Comment: Testing | % | EXTERNAL | | | Manual | performed at [facility];[address] | | LAB | | | | [address];[place] | | | | | | [address] | | | | + + + + + + | Absolute | 12.9 (H)Comment: Testing | 1.9 - 7.4 K/uL | EXTERNAL | | | Neutrophils | performed at [facility];[address] | | LAB | | | | [address];[place] | | | | | | [address] | | | | + + + + + + | Bands | 0.5 (H)Comment: Testing | 0 - 0.2 K/uL | EXTERNAL | | | Manual | performed at [facility];[address] | | LAB | | | | [address];[place] | | | | | | [address] | | | | + + + + + + | Absolute | 0.2 (H)Comment: Testing | K/uL | EXTERNAL | | | Metamyelocy | performed at [facility];[address] | | LAB | | | pet[address] | [address];[place] | | | | | | [address] | | | | + + + + + + | Absolute | 1.2Comment: Testing | 1.0 - 3.9 K/uL | EXTERNAL | | | Lymphocytes | performed at [facility];[address] | | LAB | | | | [address];[place] | | | | | | [address] | | | | + + + + + + | Absolute | 0.5Comment: Testing | 0 - 0.8 K/uL | EXTERNAL | | | Monocytes | performed at [facility];[address] | | LAB | | | | [address];[place] | | | | | | [address] | | | | + + + + + + | RBC | 1+Comment: POLYNORMAL | | EXTERNAL | | | Morphology | PLT MORPHTesting | | LAB | | | | performed at [facility];[address] | | | | | | [address];[place], [place] | | | | | | [address] | | | | | | | [...] EXTERNAL | | | | performed at [facility], [address] | | LAB | | | | [address], | | | | | | [place] [address] | | | | + + + [...] EXTERNAL | | | | performed at [facility];[address] | | LAB | | | | [address];[place] | | | | | | [address] | | | | + + + [...] EXTERNAL | | | | performed at [facility], [address] | | LAB [...] | | | | | | at [facility], [address] | | | | | | [address], | | | | | | [place] [address] | | | | + + + [...] | | | Total | performed at [facility], [address] | | LAB | | | | [address], | | | | | | [place] [address] | | | | + + + + + + | Albumin | 2.3 (L)Comment: Testing | 3.6 - 5.0 g/dL | EXTERNAL | | | | performed at [facility], [address] | | LAB | | | [address], | | | | | | [place] [address] | | | | + + + + + + | Bilirubin | 1.0Comment: Testing | 0.1 - 1.5 mg/dL | EXTERNAL | | | Total | performed at [facility], [address] | | LAB | | | | [address], | | | | | | [place] [address] | | | | + + + + + + | Bilirubin | 0.4 (H)Comment: Testing | 0.0 - 0.3 mg/dL | EXTERNAL | | | Direct | performed at [facility], [address] | | LAB | | | | [address], | | | | | | [place] [address] | | | | + + + + + + | ALP, | 44Comment: Testing | 35 - 115 U/L | EXTERNAL | | | External | performed at [facility], [address] | | LAB | | | | [address], | | | | | | [place] [address] | | | | + + + + + + | AST | 1,692 (H)Comment: | 10 - 45 U/L | EXTERNAL | | | | Testing performed at | | LAB | | | | [facility], [address] | | | | | | [place] | | | | | | [address] | | | | + + + + + + | ALT | 901 (H)Comment: Testing | 10 - 65 U/L | EXTERNAL | | | | performed at [facility], [address] | | LAB | | | | [address], | | | | | | [place] [address] | | | | + + + [...] | | | | | [place] [address] | | | | + + + + + + | K | 3.7Comment: Testing | 3.5 - 4.9 | EXTERNAL | | | | performed at [facility], [address] | mmol/L | LAB | | | | [address], | | | | | | [place] [address] | | | | + + + + + + | Cl | 113 (H)Comment: Testing | 99 - 109 mmol/L | EXTERNAL | | | | performed at [facility], [address] | | LAB | | | | [address], | | | | | | [place] [address] | | | | + + + + + + | CO2 | 28Comment: Testing | 23 - 32 mmol/L | EXTERNAL | | | | performed at [facility], [address] | | LAB | | | | [address], | | | | | | [place] [address] | | | | + + + + + + | Anion Gap | 10Comment: Testing | 5 - 20 mmol/L | EXTERNAL | | | | performed at [facility], [address] | | LAB | | | | [address], | | | | | | [place] [address] | | | | + + + + + + | Glucose, | 146 (H)Comment: Testing | 65 - 99 mg/dL | EXTERNAL | | | Fasting | performed at [facility], [address] | | LAB | | | | [address], | | | | | | [place] [address] | | | | + + + + + + | BUN | 37 (H)Comment: Testing | 8 - 25 mg/dL | EXTERNAL | | | | performed at [facility], [address] | | LAB | | | | [address], | | | | | | [place] [address] | | | | + + + + + + | Creatinine | 1.21 (H)Comment: Testing | 0.50 - 1.00 | EXTERNAL | | | | performed at [facility], [address] | mg/dL | LAB | | | | [address], | | | | | | [place] [address] | | | | + + + + + + | BUN/Creatin | 31Comment: Testing | | EXTERNAL | | | ine Ratio | performed at [facility], [address] | | LAB | | | | [address], | | | | | | [place] [address] | | | | + + + + + + | Calcium | 7.9 (L)Comment: Testing | 8.5 - 10.2 | EXTERNAL | | | | performed at [facility], [address] | mg/dL | LAB | | | | [address], | | | | | | [place] [address] | | | | + + + [...] | | | | | [place] [address] | | | | + + + [...] EXTERNAL | | | | performed at [facility] [place];[address] | | LAB | | | | [address];[place] | | | | | | [address] | | | | + + + + + + | RED CELL | 3.39 (L)Comment: Testing | 3.70 - 5.10 | EXTERNAL | | | COUNT | performed at [facility] [place];[address] | M/uL | LAB | | | | [address];[place] | | | | | | [address] | | | | + + + + + + | Hgb | 9.6 (L)Comment: Testing | 11.3 - 15.5 | EXTERNAL | | | | performed at [facility] [place];[address] | g/dL | LAB | | | | [address];[place] | | | | | | [address] | | | | + + + + + + | Hematocrit, | 29.4 (L)Comment: Testing | 34.0 - 46.0 % | EXTERNAL | | | POC | performed at [facility] [place];[address] | | LAB | | | | [address];[place] | | | | | | [address] | | | | + + + + + + | MCV | 86.8Comment: Testing | 80.0 - 100.0 fl | EXTERNAL | | | | performed at [facility] [place];[address] | | LAB | | | | [address];[place] | | | | | | [address] | | | | + + + + + + | MCH | 28.2Comment: Testing | 27.0 - 34.0 pg | EXTERNAL | | | | performed at [facility];[address] | | LAB | | | | [address];[place] | | | | | | [address] | | | | + + + + + + | MCHC | 32.5Comment: Testing | 32.0 - 35.5 | EXTERNAL | | | | performed at [facility];888 | g/dL | LAB | | | | [address];[place] | | | | | | [address] | | | | + + + + + + | RDW-CV | 42.4Comment: Testing | 37 - 53 fl | EXTERNAL | | | | performed at [facility];[address] | | LAB | | | | [address];[place] | | | | | | [address] | | | | + + + + + + | Platelet | 57 (L)Comment: Testing | 150 - 400 K/uL | EXTERNAL | | | Count | performed at [facility];[address] | | LAB | | | Plasma | [address];[place] | | | | | | [address] | | | | + + + + + + | MPV | 8.8Comment: Testing | fl | EXTERNAL | | | | performed at [facility];[address] | | LAB | | | | [address];[place] | | | | | | [address] | | | | + + + + + + | Differentia | MANUALComment: Testing | | EXTERNAL | | | l Type | performed at [facility];[address] | | LAB | | | | [address];[place] | | | | | | [address] | | | | + + + + + + | Nucleated | 2 (H)Comment: Testing | /100WBC | EXTERNAL | | | Red Blood | performed at [facility];[address] | | LAB | | | Cells | [address];[place] | | | | | | [address] | | | | + + + + + + | Segmented | 76Comment: Testing | % | EXTERNAL | | | Neutrophils | performed at [facility];[address] | | LAB | | | Manual | [address];[place] | | | | | | [address] | | | | + + + + + + | % Bands | 10Comment: Testing | % | EXTERNAL | | | | performed at [facility];[address] | | LAB | | | | [address];[place] | | | | | | [address] | | | | + + + + + + | % | 2Comment: Testing | % | EXTERNAL | | | Metamyelocy | performed at [facility];[address] | | LAB | | | petros | [address];[place] | | | | | | [address] | | | | + + + + + + | Lymphocytes | 9Comment: Testing | % | EXTERNAL | | | Manual | performed at [facility];[address] | | LAB | | | | [address];[place] | | | | | | [address] | | | | + + + + + + | Monocytes | 3Comment: Testing | % | EXTERNAL | | | Manual | performed at [facility];[address] | | LAB | | | | [address];[place] | | | | | | [address] | | | | + + + + + + | Absolute | 11.0 (H)Comment: Testing | 1.9 - 7.4 K/uL | EXTERNAL | | | Neutrophils | performed at [facility];[address] | | LAB | | | | [address];[place] | | | | | | [address] | | | | + + + + + + | Bands | 1.5 (H)Comment: Testing | 0 - 0.2 K/uL | EXTERNAL | | | Manual | performed at [facility];[address] | | LAB | | | | [address];[place] | | | | | | [address] | | | | + + + + + + | Absolute | 0.3 (H)Comment: Testing | K/uL | EXTERNAL | | | Metamyelocy | performed at [facility];[address] | | LAB | | | petros | [address];[place] | | | | | | [address] | | | | + + + + + + | Absolute | 1.3Comment: Testing | 1.0 - 3.9 K/uL | EXTERNAL | | | Lymphocytes | performed at [facility];[address] | | LAB | | | | [address];[place] | | | | | | [address] | | | | + + + + + + | Absolute | 0.4Comment: Testing | 0 - 0.8 K/uL | EXTERNAL | | | Monocytes | performed at [facility];[address] | | LAB | | | | [address];[place] | | | | | | [address] | | | | + + + + + + | Platelet | DECREASEDComment: | | EXTERNAL | | | Estimate | Testing performed at | | LAB | | | | [facility];[address];[place] [address] | | | | + + + + + + | RBC | 1+Comment: POLYTesting | | EXTERNAL | | | Morphology | performed at [facility];[address] | | LAB | | | | [address];[place] | | | | | | [address] | | | | | | | [...] | | | Fingerstick | performed at [facility];[address] | | LAB | | | | [address];[place], [place] | | | | | | [address] | | | | + + + + + + + + | Specimen | + + | | + + + +---------+ + + | Performing | Address | City/State/Zipcode | Phone Number | | Organization | | | | + +---------+ + + | EXTERNAL LAB | | | | + +---------+ + + POC GINNY, CG8, Arterial (04/23/2014 1:48 AM PST) + + + + + + | Component | Value | Ref Range | Performed | Pathologist | | | | | At | Signature | + + + + + + | PH ART | 7.356Comment: Testing | 7.350 - 7.450 | EXTERNAL | | | | performed at [facility];[address] | | LAB | | | | [facility];[place], [place] | | | | | | [address] | | | | + + + + + + | PCO2 ART | 44Comment: Testing | 35 - 45 mmHg | EXTERNAL | | | | performed at [facility];[address] | | LAB | | | | [address];[place] | | | | | | [address] | | | | + + + + + + | PO2 ART | 251 (H)Comment: Testing | 80 - 105 mmHg | EXTERNAL | | | | performed at [facility];[address] | | LAB | | | | [address];[place] | | | | | | [address] | | | | + + + + + + | HCO3 ART | 24Comment: Testing | 22 - 26 mmol/L | EXTERNAL | | | | performed at [facility];[address] | | LAB | | | | [address];[place] | | | | | | [address] | | | | + + + + + + | POC | 26Comment: Testing | 23 - 27 mEq/L | EXTERNAL | | | APPEARANCE | performed at [facility];[address] | | LAB | | | UA | [address];[place] | | | | | | [address] | | | | + + + + + + | Base | 1Comment: Testing | 0.0 - 2.0 | EXTERNAL | | | deficit | performed at [facility];888 | mmol/L | LAB | | | | [address];[place] | | | | | | [address] | | | | + + + + + + | O2 SAT ART | 100 (H)Comment: Testing | 95 - 98 % | EXTERNAL | | | | performed at [facility];[address] | | LAB | | | | [address];[place] | | | | | | [address] | | | | + + + + + + | Sodium, POC | 146 (H)Comment: Testing | 135 - 145 mEq/L | EXTERNAL | | | | performed at [facility];[address] | | LAB | | | | [address];[place] | | | | | | [address] | | | | + + + + + + | Potassium, | 4.5Comment: Testing | 3.5 - 5.0 mEq/L | EXTERNAL | | | POC | performed at [facility];[address] | | LAB | | | | [address];[place] | | | | | | [address] | | | | + + + + + + | Ionized | 0.91 (L)Comment: Testing | 1.12 - 1.32 | EXTERNAL | | | Calcium, | performed at [facility];888 | mmol/L | LAB | | | POC | [address];[place] | | | | | | [address] | | | | + + + + + + | Glucose, | 232 (H)Comment: Testing | 65 - 99 mg/dL | EXTERNAL | | | POC | performed at [facility];[address] | | LAB | | | | [address];[place] | | | | | | [address] | | | | + + + + + + | Hematocrit, | 32 (L)Comment: Testing | 35.0 - 46.0 % | EXTERNAL | | | POC | performed at [facility];[address] | | LAB | | | | [address];[place] | | | | | | [address] | | | | + + + + + + | Hemoglobin, | 10.9 (L)Comment: Testing | 11.6 - 15.5 | EXTERNAL | | | POC | performed at [facility];888 | g/dL | LAB | | | | [address];[place] | | | | | | [address] | | | | + + + [...] | | | | | | ACUTE [place] CKTRP PHONED TO | | | | | | ICU HELADIO Patiño AT 0339 BY | | | | | | LJREAD BACK RESULTS | | | | | | VERIFIEDTesting | | | | | | performed at [facility];[address] | | | | | | [address];[place], [place] | | | | | | [address] | | | | + + + [...] | | | M AT 0145 [facility] | | | | | | RESULTS VERIFIEDTesting | | | | | | performed at [facility];[address] | | | | | | [address];[place] | | | | | | [address] | | | | + + + + + + | RED CELL | 3.32 (L)Comment: Testing | 3.70 - 5.10 | EXTERNAL | | | COUNT | performed at [facility];888 | M/uL | LAB | | | | [address];[place] | | | | | | [address] | | | | + + + + + + | Hgb | 9.7 (L)Comment: Testing | 11.3 - 15.5 | EXTERNAL | | | | performed at [facility];888 | g/dL | LAB | | | | [address];[place] | | | | | | [address] | | | | + + + + + + | Hematocrit, | 29.3 (L)Comment: Testing | 34.0 - 46.0 % | EXTERNAL | | | POC | performed at [facility];[address] | | LAB | | | | [address];[place] | | | | | | [address] | | | | + + + + + + | MCV | 88.5Comment: Testing | 80.0 - 100.0 fl | EXTERNAL | | | | performed at [facility];[address] | | LAB | | | | [address];[place] | | | | | | [address] | | | | + + + + + + | MCH | 29.1Comment: Testing | 27.0 - 34.0 pg | EXTERNAL | | | | performed at [facility];[address] | | LAB | | | | [address];[place] | | | | | | [address] | | | | + + + + + + | MCHC | 32.9Comment: Testing | 32.0 - 35.5 | EXTERNAL | | | | performed at [facility];888 | g/dL | LAB | | | | [address];[place] | | | | | | [address] | | | | + + + + + + | RDW-CV | 45.9Comment: Testing | 37 - 53 fl | EXTERNAL | | | | performed at [facility];[address] | | LAB | | | | [address];[place] | | | | | | [address] | | | | + + + + + + | Platelet | 155Comment: Testing | 150 - 400 K/uL | EXTERNAL | | | Count | performed at [facility];[address] | | LAB | | | Plasma | [address];[place] | | | | | | [address] | | | | + + + + + + | MPV | 8.4Comment: Testing | fl | EXTERNAL | | | | performed at [facility];[address] | | LAB | | | | [address];[place] | | | | | | [address] | | | | + + + + + + | Differentia | MANUALComment: Testing | | EXTERNAL | | | l Type | performed at [facility];[address] | | LAB | | | | [address];[place] | | | | | | [address] | | | | + + + + + + | Nucleated | 2 (H)Comment: Testing | /100WBC | EXTERNAL | | | Red Blood | performed at [facility];[address] | | LAB | | | Cells | [address];[place] | | | | | | [address] | | | | + + + + + + | Segmented | 69Comment: Testing | % | EXTERNAL | | | Neutrophils | performed at [facility];[address] | | LAB | | | Manual | [address];[place] | | | | | | [address] | | | | + + + + + + | % Bands | 7Comment: Testing | % | EXTERNAL | | | | performed at [facility];[address] | | LAB | | | | [address];[place] | | | | | | [address] | | | | + + + + + + | % | 4Comment: Testing | % | EXTERNAL | | | Metamyelocy | performed at [facility];[address] | | LAB | | | petros | [address];[place] | | | | | | [address] | | | | + + + + + + | % | 2Comment: Testing | % | EXTERNAL | | | Myelocytes | performed at [facility];[address] | | LAB | | | | [address];[place] | | | | | | [address] | | | | + + + + + + | Lymphocytes | 10Comment: Testing | % | EXTERNAL | | | Manual | performed at [facility];[address] | | LAB | | | | [address];[place] | | | | | | [address] | | | | + + + + + + | Monocytes | 8Comment: Testing | % | EXTERNAL | | | Manual | performed at [facility];[address] | | LAB | | | | [address];[place] | | | | | | [address] | | | | + + + + + + | Absolute | 21.7 (H)Comment: Testing | 1.9 - 7.4 K/uL | EXTERNAL | | | Neutrophils | performed at [facility];[address] | | LAB | | | | [address];[place] | | | | | | [address] | | | | + + + + + + | Bands | 2.2 (H)Comment: Testing | 0 - 0.2 K/uL | EXTERNAL | | | Manual | performed at [facility];[address] | | LAB | | | | [address];[place] | | | | | | [address] | | | | + + + + + + | Absolute | 1.3 (H)Comment: Testing | K/uL | EXTERNAL | | | Metamyelocy | performed at [facility];[address] | | LAB | | | petros | [address];[place] | | | | | | [address] | | | | + + + + + + | Absolute | 0.6 (H)Comment: Testing | K/uL | EXTERNAL | | | Myelocytes | performed at [facility];[address] | | LAB | | | | [address];[place] | | | | | | [address] | | | | + + + + + + | Absolute | 3.1Comment: Testing | 1.0 - 3.9 K/uL | EXTERNAL | | | Lymphocytes | performed at [facility];[address] | | LAB | | | | [address];[place] | | | | | | [address] | | | | + + + + + + | Absolute | 2.5 (H)Comment: Testing | 0 - 0.8 K/uL | EXTERNAL | | | Monocytes | performed at [facility];[address] | | LAB | | | | [address];[place] | | | | | | [address] | | | | + + + + + + | RBC | 1+Comment: POLYNORMAL | | EXTERNAL | | | Morphology | PLT MORPHTesting | | LAB | | | | performed at [facility];[address] | | | | | | [address];[place] | | | | | | [address] | | | | | | | [...] EXTERNAL | | | | performed at [facility];888 | mmol/L | LAB | | | | [address];[place], [place] | | | | | | [address] | | | | + + + [...] + + POC ISTAT, CG8, Arterial (04/23/2014 12:14 AM PST) + + + + + + | Component | Value | Ref Range | Performed | Pathologist | | | | | At | Signature | + + + + + + | FiO2, POC | 40Comment: Testing | % | EXTERNAL | | | | performed at [facility] | | LAB | | | | [address];[place], [place] | | | | | | [address] | | | | + + + + + + | PH ART | 7.438Comment: Testing | 7.350 - 7.450 | EXTERNAL | | | | performed at [facility];[address] | | LAB | | | | [address];[place] | | | | | | [address] | | | | + + + + + + | PCO2 ART | 31 (L)Comment: Testing | 35 - 45 mmHg | EXTERNAL | | | | performed at [facility];[address] | | LAB | | | | [address];[place] | | | | | | [address] | | | | + + + + + + | PO2 ART | 115 (H)Comment: Testing | 80 - 105 mmHg | EXTERNAL | | | | performed at [facility];[address] | | LAB | | | | [address];[place] | | | | | | [address] | | | | + + + + + + | HCO3 ART | 21 (L)Comment: Testing | 22 - 26 mmol/L | EXTERNAL | | | | performed at [facility];[address] | | LAB | | | | [address];[place] | | | | | | [address] | | | | + + + + + + | POC | 22 (L)Comment: Testing | 23 - 27 mEq/L | EXTERNAL | | | APPEARANCE | performed at [facility];[address] | | LAB | | | UA | [address];[place] | | | | | | [address] | | | | + + + + + + | Base | 3 (H)Comment: Testing | 0.0 - 2.0 | EXTERNAL | | | deficit | performed at [facility];888 | mmol/L | LAB | | | | [address];[place] | | | | | | [address] | | | | + + + + + + | O2 SAT ART | 99 (H)Comment: Testing | 95 - 98 % | EXTERNAL | | | | performed at [facility];[address] | | LAB | | | | [address];[place] | | | | | | [address] | | | | + + + + + + | Sodium, POC | 149 (H)Comment: Testing | 135 - 145 mEq/L | EXTERNAL | | | | performed at [facility];[address] | | LAB | | | | [address];[place] | | | | | | [address] | | | | + + + + + + | Potassium, | 4.3Comment: Testing | 3.5 - 5.0 mEq/L | EXTERNAL | | | POC | performed at [facility];[address] | | LAB | | | | [address];[place] | | | | | | [address] | | | | + + + + + + | Ionized | 0.98 (L)Comment: Testing | 1.12 - 1.32 | EXTERNAL | | | Calcium, | performed at [facility];888 | mmol/L | LAB | | | POC | [address];[place] | | | | | | [address] | | | | + + + + + + | Glucose, | 52 (L)Comment: Testing | 65 - 99 mg/dL | EXTERNAL | | | POC | performed at [facility];[address] | | LAB | | | | [address];[place] | | | | | | [address] | | | | + + + + + + | Hematocrit, | 23 (LL)Comment: Testing | 35.0 - 46.0 % | EXTERNAL | | | POC | performed at [facility];[address] | | LAB | | | | [address];[place] | | | | | | [address] | | | | + + + + + + | Hemoglobin, | 7.8 (LL)Comment: Testing | 11.6 - 15.5 | EXTERNAL | | | POC | performed at [facility];888 | g/dL | LAB | | | | [address];[place] | | | | | | [address] | | | | + + + + + + | Comment, | Tidal Volume = | | EXTERNAL | | | POC | 460Comment: Peep = 8Resp | | LAB | | | | Rate = 16Testing | | | | | | performed at [facility];8 | | | | | | [facility];[place], [place] | | | | | | [address] | | | | + + + [...] | | | Fingerstick | performed at [facility];[address] | | LAB | | | | [address];[place] | | | | | | [address] | | | | + + + [...] + + + | MACKENZIE ODILIA [address] HEAD WO [...] Conversion - 11/24/2018 6:38 AM PDT MACKENZIE [id number] years FemaleCT | | HEAD WO CONTRAST04/22/2014 [...] At | + + + | MACKENZIE HARTLYE CT CHEST ABDOMEN PELVIS WO CONTRAST 04/22/2014 [...] | | | Fingerstick | performed at [facility];[address] | | LAB | | | | [address];[place] | | | | | | [address] | | | | + + + [...] | | | Fingerstick | performed at [facility];[address] | | LAB | | | | [address];[place], [place] | | | | | | [address] | | | | + + + [...] EXTERNAL | | | | performed at [facility];888 | mmol/L | LAB | | | | [address] [facility];[place], [place] | | | | | | [address] | | | | + + + [...] EXTERNAL | | | | performed at [facility] | | LAB | | | | [address];[place] | | | | | | [address] | | | | + + + [...] EXTERNAL | | | | performed at [facility];[address] | | LAB | | | | [address];[place] | | | | | | [address] | | | | + + + [...] | | | | | | ACUTE [place] RESULT READ | | | | | | BACK BY:NAHUN Asher/RUDI AT | | | | | | 2111 SAMTesting | | | | | | performed at [facility];[address] | | | | | | [address];[place], [place] | | | | | | [address] | | | | + + + [...] | | | Patient | performed at [facility] | | LAB | | | | [address];[place], [place] | | | | | | [address] | | | | + + + [...] | | | | | performed at [facility] | | | | | | [address];[place] | | | | | | [address] [...] EXTERNAL | | | | performed at [facility];[address] | | LAB | | | | [address];[place], [place] | | | | | | [address] | | | | + + + [...] + + + | WBC | 30.8 (HH)Comment: RESULT | 3.8 - 11.0 K/uL | EXTERNAL | | | | READ BACK BY:NAHUN Asher | | LAB | | | | IN ICU AT 2055 BY GALE ON | | | | | | [id number] performed | | | | | | at [facility];[address];[place] [address] | | | | + + + + + + | RED CELL | 2.58 (L)Comment: Testing | 3.70 - 5.10 | EXTERNAL | | | COUNT | performed at [facility];888 | M/uL | LAB | | | | [address];[place] | | | | | | [address] | | | | + + + + + + | Hgb | 7.3 (L)Comment: Testing | 11.3 - 15.5 | EXTERNAL | | | | performed at [facility];888 | g/dL | LAB | | | | [address];[place] | | | | | | [address] | | | | + + + + + + | Hematocrit, | 22.1 (L)Comment: Testing | 34.0 - 46.0 % | EXTERNAL | | | POC | performed at [facility];[address] | | LAB | | | | [address];[place] | | | | | | [address] | | | | + + + + + + | MCV | 85.8Comment: Testing | 80.0 - 100.0 fl | EXTERNAL | | | | performed at [facility];[address] | | LAB | | | | [address];[place] | | | | | | [address] | | | | + + + + + + | MCH | 28.5Comment: Testing | 27.0 - 34.0 pg | EXTERNAL | | | | performed at [facility];[address] | | LAB | | | | [address];[place] | | | | | | [address] | | | | + + + + + + | MCHC | 33.2Comment: Testing | 32.0 - 35.5 | EXTERNAL | | | | performed at [facility];888 | g/dL | LAB | | | | [address];[place] | | | | | | [address] | | | | + + + + + + | RDW-CV | 43.3Comment: Testing | 37 - 53 fl | EXTERNAL | | | | performed at [facility];[address] | | LAB | | | | [address];[place] | | | | | | [address] | | | | + + + + + + | Platelet | 197Comment: Testing | 150 - 400 K/uL | EXTERNAL | | | Count | performed at [facility];[address] | | LAB | | | Plasma | [address];[place] | | | | | | [address] | | | | + + + + + + | MPV | 7.4Comment: Testing | fl | EXTERNAL | | | | performed at [facility];[address] | | LAB | | | | [address];[place] | | | | | | [address] | | | | + + + + + + | Differentia | MANUALComment: Testing | | EXTERNAL | | | l Type | performed at [facility];[address] | | LAB | | | | [address];[place] | | | | | | [address] | | | | + + + + + + | Nucleated | 6 (H)Comment: Testing | /100WBC | EXTERNAL | | | Red Blood | performed at [facility];[address] | | LAB | | | Cells | [address];[place] | | | | | | [address] | | | | + + + + + + | Segmented | 69Comment: Testing | % | EXTERNAL | | | Neutrophils | performed at [facility] [place];[address] | | LAB | | | Manual | [address];[place] | | | | | | [address] | | | | + + + + + + | % Bands | 7Comment: Testing | % | EXTERNAL | | | | performed at [facility] [place];[address] | | LAB | | | | [address];[place] | | | | | | [address] | | | | + + + + + + | % | 2Comment: Testing | % | EXTERNAL | | | Metamyelocy | performed at [facility] [place];[address] | | LAB | | | petros | [address];[place] | | | | | | [address] | | | | + + + + + + | % | 1Comment: Testing | % | EXTERNAL | | | Myelocytes | performed at [facility] [place];[address] | | LAB | | | | [address];[place] | | | | | | [address] | | | | + + + + + + | Lymphocytes | 14Comment: Testing | % | EXTERNAL | | | Manual | performed at [facility] [place];[address] | | LAB | | | | [address];[place] | | | | | | [address] | | | | + + + + + + | Monocytes | 6Comment: Testing | % | EXTERNAL | | | Manual | performed at [facility] [place];[address] | | LAB | | | | [address];[place] | | | | | | [address] | | | | + + + + + + | Eosinophils | 1Comment: Testing | % | EXTERNAL | | | Manual | performed at [facility] [place];[address] | | LAB | | | | [address];[place] | | | | | | [address] | | | | + + + + + + | Absolute | 21.3 (H)Comment: Testing | 1.9 - 7.4 K/uL | EXTERNAL | | | Neutrophils | performed at [facility] [place];[address] | | LAB | | | | [address];[place] | | | | | | [address] | | | | + + + + + + | Bands | 2.2 (H)Comment: Testing | 0 - 0.2 K/uL | EXTERNAL | | | Manual | performed at [facility] [place];[address] | | LAB | | | | [address];[place] | | | | | | [address] | | | | + + + + + + | Absolute | 0.6 (H)Comment: Testing | K/uL | EXTERNAL | | | Metamyelocy | performed at [facility] [place];[address] | | LAB | | | [address] | [address];[place] | | | | | | [address] | | | | + + + + + + | Absolute | 0.3 (H)Comment: Testing | K/uL | EXTERNAL | | | Myelocytes | performed at [facility] [place];[address] | | LAB | | | | [address];[place] | | | | | | [address] | | | | + + + + + + | Absolute | 4.3 (H)Comment: Testing | 1.0 - 3.9 K/uL | EXTERNAL | | | Lymphocytes | performed at [facility] [place];[address] | | LAB | | | | [address];[place] | | | | | | [address] | | | | + + + + + + | Absolute | 1.8 (H)Comment: Testing | 0 - 0.8 K/uL | EXTERNAL | | | Monocytes | performed at [facility] [place];[address] | | LAB | | | | [address];[place] | | | | | | [address] | | | | + + + + + + | Absolute | 0.3Comment: Testing | 0 - 0.5 K/uL | EXTERNAL | | | Eosinophils | performed at [facility] [place];[address] | | LAB | | | | [address];[place] | | | | | | [address] | | | | + + + + + + | Platelet | ADEQUATEComment: Testing | | EXTERNAL | | | Estimate | performed at [facility] [place];[address] | | LAB | | | | [address];[place] | | | | | | [address] | | | | + + + + + + | RBC | 1+Comment: GIANT | | EXTERNAL | | | Morphology | PLATELETS1+POLYTesting | | LAB | | | | performed at [facility];888 | | | | | | [facility];[place], [place] | | | | | | [address] | | | | | |Testing performed at [facility];[address] [facility];[place] [address] | | | | | | | [...] EXTERNAL | | | | performed at [facility];888 | | LAB | | | | [facility];[place], [place] | | | | | | [address] | | | | + + + [...] EXTERNAL | | | | performed at [facility];888 | | LAB | | | | [address];[place], [place] | | | | | | [address] | | | | + + + [...] EXTERNAL | | | | performed at [facility];888 | mmol/L | LAB | | | | [address];[place] | | | | | | [address] | | | | + + + + + + | K | 4.0Comment: Testing | 3.5 - 4.9 | EXTERNAL | | | | performed at [facility];888 | mmol/L | LAB | | | | [address];[place] | | | | | | [address] | | | | + + + + + + | Cl | 112 (H)Comment: Testing | 99 - 109 mmol/L | EXTERNAL | | | | performed at [facility];[address] | | LAB | | | | [address];[place] | | | | | | [address] | | | | + + + + + + | CO2 | 30Comment: Testing | 23 - 32 mmol/L | EXTERNAL | | | | performed at [facility];[address] | | LAB | | | | [address];[place] | | | | | | [address] | | | | + + + + + + | Anion Gap | 12Comment: Testing | 5 - 20 mmol/L | EXTERNAL | | | | performed at [facility];[address] | | LAB | | | | [address];[place] | | | | | | [address] | | | | + + + + + + | Glucose, | 67Comment: Testing | 65 - 99 mg/dL | EXTERNAL | | | Fasting | performed at [facility];[address] | | LAB | | | | [address];[place] | | | | | | [address] | | | | + + + + + + | BUN | 37 (H)Comment: Testing | 8 - 25 mg/dL | EXTERNAL | | | | performed at [facility];[address] | | LAB | | | | [address];[place] | | | | | | [address] | | | | + + + + + + | Creatinine | 1.34 (H)Comment: Testing | 0.50 - 1.00 | EXTERNAL | | | | performed at [facility];888 | mg/dL | LAB | | | | [address];[place] | | | | | | [address] | | | | + + + + + + | BUN/Creatin | 28Comment: Testing | | EXTERNAL | | | ine Ratio | performed at [facility];[address] | | LAB | | | | [address];[place] | | | | | | [address] | | | | + + + + + + | Calcium | 7.9 (L)Comment: Testing | 8.5 - 10.2 | EXTERNAL | | | | performed at [facility];888 | mg/dL | LAB | | | | [address];[place] | | | | | | [address] | | | | + + + [...] | | | | | | at [facility];[address] [place] [address] | | | | | | [facility];[place] [address] | | | | + + + [...] | | | Fingerstick | performed at [facility];888 | | LAB | | | | [address];[place] | | | | | | [address] | | | | + + + [...] | | | Fingerstick | performed at [facility];888 | | LAB | | | | [address];[place] | | | | | | [address] | | | | + + + [...] | | | Fingerstick | performed at [facility];888 | | LAB | | | | [address];[place], [place] | | | | | | [address] | | | | + + + [...] + + + | WBC | 33.5 (HH)Comment: RESULT | 3.8 - 11.0 K/uL | EXTERNAL | | | | READ BACK BY:NAHUN Asher | | LAB | | | | ON ICU AT 2055 [address] ON | | | | | | [id number] performed | | | | | | at [facility];[address];[place] [address] | | | | + + + + + + | RED CELL | 2.91 (L)Comment: Testing | 3.70 - 5.10 | EXTERNAL | | | COUNT | performed at [facility];888 | M/uL | LAB | | | | [address];[place] | | | | | | [address] | | | | + + + + + + | Hgb | 8.4 (L)Comment: Testing | 11.3 - 15.5 | EXTERNAL | | | | performed at [facility];888 | g/dL | LAB | | | | [address];[place] | | | | | | [address] | | | | + + + + + + | Hematocrit, | 24.8 (L)Comment: Testing | 34.0 - 46.0 % | EXTERNAL | | | POC | performed at [facility];888 | | LAB | | | | [address];[place] | | | | | | [address] | | | | + + + + + + | MCV | 85.1Comment: Testing | 80.0 - 100.0 fl | EXTERNAL | | | | performed at [facility];888 | | LAB | | | | [address];[place] | | | | | | [address] | | | | + + + + + + | MCH | 28.9Comment: Testing | 27.0 - 34.0 pg | EXTERNAL | | | | performed at [facility];888 | | LAB | | | | [address];[place] | | | | | | [address] | | | | + + + + + + | MCHC | 34.0Comment: Testing | 32.0 - 35.5 | EXTERNAL | | | | performed at [facility];888 | g/dL | LAB | | | | [address];[place] | | | | | | [address] | | | | + + + + + + | RDW-CV | 42.9Comment: Testing | 37 - 53 fl | EXTERNAL | | | | performed at [facility];[address] | | LAB | | | | [address];[place] | | | | | | [address] | | | | + + + + + + | Platelet | 228Comment: Testing | 150 - 400 K/uL | EXTERNAL | | | Count | performed at [facility];888 | | LAB | | | Plasma | [address];[place] | | | | | | [address] | | | | + + + + + + | MPV | 7.2Comment: Testing | fl | EXTERNAL | | | | performed at [facility];[address] | | LAB | | | | [address];[place] | | | | | | [address] | | | | + + + + + + | Differentia | MANUALComment: Testing | | EXTERNAL | | | l Type | performed at [facility];[address] | | LAB | | | | [address];[place] | | | | | | [address] | | | | + + + + + + | Segmented | 69Comment: Testing | % | EXTERNAL | | | Neutrophils | performed at [facility];[address] | | LAB | | | Manual | [address];[place] | | | | | | [address] | | | | + + + + + + | % Bands | 14Comment: Testing | % | EXTERNAL | | | | performed at [facility];[address] | | LAB | | | | [address];[place] | | | | | | [address] | | | | + + + + + + | % | 3Comment: Testing | % | EXTERNAL | | | Metamyelocy | performed at [facility];[address] | | LAB | | | petros | [address];[place] | | | | | | [address] | | | | + + + + + + | % | 1Comment: Testing | % | EXTERNAL | | | Myelocytes | performed at [facility];[address] | | LAB | | | | [address];[place] | | | | | | [address] | | | | + + + + + + | Lymphocytes | 9Comment: Testing | % | EXTERNAL | | | Manual | performed at [facility];[address] | | LAB | | | | [address];[place] | | | | | | [address] | | | | + + + + + + | Monocytes | 4Comment: Testing | % | EXTERNAL | | | Manual | performed at [facility];888 | | LAB | | | | [address];[place] | | | | | | [address] | | | | + + + + + + | Absolute | 23.2 (H)Comment: Testing | 1.9 - 7.4 K/uL | EXTERNAL | | | Neutrophils | performed at [facility];888 | | LAB | | | | [address];[place] | | | | | | [address] | | | | + + + + + + | Bands | 4.7 (H)Comment: Testing | 0 - 0.2 K/uL | EXTERNAL | | | Manual | performed at [facility];888 | | LAB | | | | [address];[place] | | | | | | [address] | | | | + + + + + + | Absolute | 1.0 (H)Comment: Testing | K/uL | EXTERNAL | | | Metamyelocy | performed at [facility];888 | | LAB | | | petros | [address];[place] | | | | | | [address] | | | | + + + + + + | Absolute | 0.3 (H)Comment: Testing | K/uL | EXTERNAL | | | Myelocytes | performed at [facility];[address] | | LAB | | | | [address];[place] | | | | | | [address] | | | | + + + + + + | Absolute | 3.0Comment: Testing | 1.0 - 3.9 K/uL | EXTERNAL | | | Lymphocytes | performed at [facility];[address] | | LAB | | | | [address];[place] | | | | | | [address] | | | | + + + + + + | Absolute | 1.3 (H)Comment: Testing | 0 - 0.8 K/uL | EXTERNAL | | | Monocytes | performed at [facility];[address] | | LAB | | | | [address];[place] | | | | | | [address] | | | | + + + + + + | Platelet | ADEQUATEComment: Testing | | EXTERNAL | | | Estimate | performed at [facility];[address] | | LAB | | | | [address];[place] | | | | | | [address] | | | | + + + + + + | RBC | 1+Comment: TOXIC | | EXTERNAL | | | Morphology | GRANULATION1+POLYTesting | | LAB | | | | performed at [facility];[address] | | | | | | [address];[place] | | | | | | [address] | | | | | |Testing performed at [facility];[address];[place] [address] | | | | | | | | | | + + + + + + | Nucleated | 4 (H)Comment: Testing | /100WBC | EXTERNAL | | | Red Blood | performed at [facility];888 | | LAB | | | Cells | [address];[place] | | | | | | [address] | | | | + + + [...] EXTERNAL | | | | performed at [facility];888 | mmol/L | LAB | | | | [address];[place], [place] | | | | | | [address] | | | | + + + [...] | | | | | performed at [facility] | | | | | | [facility];[place], [place] | | | | | | [address] | | | | + + + + + + + + | Specimen | + + | | + + + +---------+ + + | Performing | Address | City/State/Zipcode | Phone Number | | Organization | | | | + +---------+ + + | EXTERNAL LAB | | | | + +---------+ + + POC ISTAT, CG8, Arterial (04/22/2014 2:43 PM PST) + + + + + + | Component | Value | Ref Range | Performed | Pathologist | | | | | At | Signature | + + + + + + | FiO2, POC | 35Comment: Testing | % | EXTERNAL | | | | performed at [facility] | | LAB | | | | [address];[place], [place] | | | | | | [address] | | | | + + + + + + | PH ART | 7.358Comment: Testing | 7.350 - 7.450 | EXTERNAL | | | | performed at [facility];[address] | | LAB | | | | [address];[place] | | | | | | [address] | | | | + + + + + + | PCO2 ART | 37Comment: Testing | 35 - 45 mmHg | EXTERNAL | | | | performed at [facility];[address] | | LAB | | | | [address];[place] | | | | | | [address] | | | | + + + + + + | PO2 ART | 84Comment: Testing | 80 - 105 mmHg | EXTERNAL | | | | performed at [facility];[address] | | LAB | | | | [address];[place] | | | | | | [address] | | | | + + + + + + | HCO3 ART | 21 (L)Comment: Testing | 22 - 26 mmol/L | EXTERNAL | | | | performed at [facility];[address] | | LAB | | | | [address];[place] | | | | | | [address] | | | | + + + + + + | POC | 22 (L)Comment: Testing | 23 - 27 mEq/L | EXTERNAL | | | APPEARANCE | performed at [facility];[address] | | LAB | | | UA | [address];[place] | | | | | | [address] | | | | + + + + + + | Base | 5 (H)Comment: Testing | 0.0 - 2.0 | EXTERNAL | | | deficit | performed at [facility];888 | mmol/L | LAB | | | | [address];[place] | | | | | | [address] | | | | + + + + + + | O2 SAT ART | 96Comment: Testing | 95 - 98 % | EXTERNAL | | | | performed at [facility];[address] | | LAB | | | | [address];[place] | | | | | | [address] | | | | + + + + + + | Sodium, POC | 150 (H)Comment: Testing | 135 - 145 mEq/L | EXTERNAL | | | | performed at [facility];[address] | | LAB | | | | [address];[place] | | | | | | [address] | | | | + + + + + + | Potassium, | 3.7Comment: Testing | 3.5 - 5.0 mEq/L | EXTERNAL | | | POC | performed at [facility];[address] | | LAB | | | | [address];[place] | | | | | | [address] | | | | + + + + + + | Ionized | 1.01 (L)Comment: Testing | 1.12 - 1.32 | EXTERNAL | | | Calcium, | performed at [facility];888 | mmol/L | LAB | | | POC | [address];[place] | | | | | | [address] | | | | + + + + + + | Glucose, | 195 (H)Comment: Testing | 65 - 99 mg/dL | EXTERNAL | | | POC | performed at [facility];[address] | | LAB | | | | [address];[place] | | | | | | [address] | | | | + + + + + + | Hematocrit, | 23 (LL)Comment: Testing | 35.0 - 46.0 % | EXTERNAL | | | POC | performed at [facility];[address] | | LAB | | | | [address];[place] | | | | | | [address] | | | | + + + + + + | Hemoglobin, | 7.8 (LL)Comment: Testing | 11.6 - 15.5 | EXTERNAL | | | POC | performed at [facility];888 | g/dL | LAB | | | | [address];[place] | | | | | | [address] | | | | + + + + + + | Comment, | Tidal Volume = | | EXTERNAL | | | POC | 16Comment: Peep = 8Resp | | LAB | | | | Rate = 46Testing | | | | | | performed at [facility];[address] | | | | | | [facility];[place], [place] | | | | | | [address] | | | | + + + [...] | | | Patient | performed at [facility];[address] | | LAB | | | | [address];[place] | | | | | | [address] | | | | + + + [...] | | | | | performed at [facility] | | | | | | [facility];[place], [place] | | | | | | [address] | | | | + + + [...] EXTERNAL | | | | performed at [facility];[address] | | LAB | | | | [address];[place], [place] | | | | | | [address] | | | | + + + [...] + +---------+ + + External Lab: RAPHAEL (04/22/2014 2:43 PM PST) + + + + + + | Component | Value | Ref Range | Performed | Pathologist | | | | | At | Signature | + + + + + + | WBC | 35.3 (HH)Comment: RESULT | 3.8 - 11.0 K/uL | EXTERNAL | | | | READ BACK BY:GRISEL Hanna ON | | LAB | | | | ICU AT [address] | | | | | | [id number] performed | | | | | | at [facility];[address];[place] [address] | | | | + + + + + + | RED CELL | 2.99 (L)Comment: Testing | 3.70 - 5.10 | EXTERNAL | | | COUNT | performed at [facility];888 | M/uL | LAB | | | | [address];[place] | | | | | | [address] | | | | + + + + + + | Hgb | 8.3 (L)Comment: Testing | 11.3 - 15.5 | EXTERNAL | | | | performed at [facility];888 | g/dL | LAB | | | | [address];[place] | | | | | | [address] | | | | + + + + + + | Hematocrit, | 26.5 (L)Comment: Testing | 34.0 - 46.0 % | EXTERNAL | | | POC | performed at [facility];[address] | | LAB | | | | [address];[place] | | | | | | [address] | | | | + + + + + + | MCV | 88.6Comment: Testing | 80.0 - 100.0 fl | EXTERNAL | | | | performed at [facility];[address] | | LAB | | | | [address];[place] | | | | | | [address] | | | | + + + + + + | MCH | 27.8Comment: Testing | 27.0 - 34.0 pg | EXTERNAL | | | | performed at [facility];[address] | | LAB | | | | [address];[place] | | | | | | [address] | | | | + + + + + + | MCHC | 31.4 (L)Comment: Testing | 32.0 - 35.5 | EXTERNAL | | | | performed at [facility];888 | g/dL | LAB | | | | [address];[place] | | | | | | [address] | | | | + + + + + + | RDW-CV | 47.3Comment: Testing | 37 - 53 fl | EXTERNAL | | | | performed at [facility];[address] | | LAB | | | | [address];[place] | | | | | | [address] | | | | + + + + + + | Platelet | 78 (L)Comment: Testing | 150 - 400 K/uL | EXTERNAL | | | Count | performed at [facility];[address] | | LAB | | | Plasma | [address];[place] | | | | | | [address] | | | | + + + + + + | MPV | 8.7Comment: Testing | fl | EXTERNAL | | | | performed at [facility];[address] | | LAB | | | | [address];[place] | | | | | | [address] | | | | + + + + + + | Differentia | MANUALComment: Testing | | EXTERNAL | | | l Type | performed at [facility];[address] | | LAB | | | | [address];[place] | | | | | | [address] | | | | + + + + + + | Nucleated | 2 (H)Comment: Testing | /100WBC | EXTERNAL | | | Red Blood | performed at [facility];888 | | LAB | | | Cells | [address];[place] | | | | | | [address] | | | | + + + + + + | Segmented | 76Comment: Testing | % | EXTERNAL | | | Neutrophils | performed at [facility];[address] | | LAB | | | Manual | [address];[place] | | | | | | [address] | | | | + + + + + + | % Bands | 9Comment: Testing | % | EXTERNAL | | | | performed at [facility];[address] | | LAB | | | | [address];[place] | | | | | | [address] | | | | + + + + + + | % | 3Comment: Testing | % | EXTERNAL | | | Metamyelocy | performed at [facility];[address] | | LAB | | | petros | [address];[place] | | | | | | [address] | | | | + + + + + + | % | 1Comment: Testing | % | EXTERNAL | | | Myelocytes | performed at [facility];[address] | | LAB | | | | [address];[place] | | | | | | [address] | | | | + + + + + + | Lymphocytes | 2Comment: Testing | % | EXTERNAL | | | Manual | performed at [facility];[address] | | LAB | | | | [address];[place] | | | | | | [address] | | | | + + + + + + | Monocytes | 9Comment: Testing | % | EXTERNAL | | | Manual | performed at [facility];888 | | LAB | | | | [address];[place] | | | | | | [address] | | | | + + + + + + | Absolute | 26.7 (H)Comment: Testing | 1.9 - 7.4 K/uL | EXTERNAL | | | Neutrophils | performed at [facility];[address] | | LAB | | | | [address];[place] | | | | | | [address] | | | | + + + + + + | Bands | 3.2 (H)Comment: Testing | 0 - 0.2 K/uL | EXTERNAL | | | Manual | performed at [facility];888 | | LAB | | | | [address];[place] | | | | | | [address] | | | | + + + + + + | Absolute | 1.1 (H)Comment: Testing | K/uL | EXTERNAL | | | Metamyelocy | performed at [facility];[address] | | LAB | | | petros | [address];[place] | | | | | | [address] | | | | + + + + + + | Absolute | 0.4 (H)Comment: Testing | K/uL | EXTERNAL | | | Myelocytes | performed at [facility];[address] | | LAB | | | | [address];[place] | | | | | | [address] | | | | + + + + + + | Absolute | 0.7 (L)Comment: Testing | 1.0 - 3.9 K/uL | EXTERNAL | | | Lymphocytes | performed at [facility];[address] | | LAB | | | | [address];[place] | | | | | | [address] | | | | + + + + + + | Absolute | 3.2 (H)Comment: Testing | 0 - 0.8 K/uL | EXTERNAL | | | Monocytes | performed at [facility];[address] | | LAB | | | | [address];[place] | | | | | | [address] | | | | + + + + + + | Platelet | DECREASEDComment: | | EXTERNAL | | | Estimate | Testing performed at | | LAB | | | | [facility];[address];[place] [address] | | | | + + + + + + | RBC | 1+Comment: GIANT | | EXTERNAL | | | Morphology | PLATELETS1+POLY1+HYPO1+A | | LAB | | | | NISOTesting performed at | | | | | | [facility];[address];[place] [address] | | | | | |1+ | | | | | |HYPO | | | | | |1+ | | | | | |ANISO | | | | | |Testing performed at [facility];[address];[place] [address] | | | | | | | | | | + + + + + + | Differentia | SLIDE REFERRED TO | | EXTERNAL | | | l Comments | PATHOLOGIST FOR REVIEW | | LAB | | | | AND COMMENTComment: | | | | | | Testing performed at | | | | | | [facility];[address];[place] [address] | | | | + + + [...] EXTERNAL | | | | performed at [facility];888 | mmol/L | LAB | | | | [address];[place] | | | | | | [address] | | | | + + + + + + | K | 3.9Comment: Testing | 3.5 - 4.9 | EXTERNAL | | | | performed at [facility];888 | mmol/L | LAB | | | | [address];[place] | | | | | | [address] | | | | + + + + + + | Cl | 114 (H)Comment: Testing | 99 - 109 mmol/L | EXTERNAL | | | | performed at [facility];[address] | | LAB | | | | [address];[place] | | | | | | [address] | | | | + + + + + + | CO2 | 21 (L)Comment: Testing | 23 - 32 mmol/L | EXTERNAL | | | | performed at [facility];[address] | | LAB | | | | [address];[place] | | | | | | [address] | | | | + + + + + + | Anion Gap | 23 (H)Comment: Testing | 5 - 20 mmol/L | EXTERNAL | | | | performed at [facility];[address] | | LAB | | | | [address];[place] | | | | | | [address] | | | | + + + + + + | Glucose, | 192 (H)Comment: Testing | 65 - 99 mg/dL | EXTERNAL | | | Fasting | performed at [facility];[address] | | LAB | | | | [address];[place] | | | | | | [address] | | | | + + + + + + | BUN | 34 (H)Comment: Testing | 8 - 25 mg/dL | EXTERNAL | | | | performed at [facility] [place];[address] | | LAB | | | | [address];[place] | | | | | | [address] | | | | + + + + + + | Creatinine | 1.47 (H)Comment: Testing | 0.50 - 1.00 | EXTERNAL | | | | performed at [facility] [place];[address] | mg/dL | LAB | | | | [address];[place] | | | | | | [address] | | | | + + + + + + | BUN/Creatin | 23Comment: Testing | | EXTERNAL | | | ine Ratio | performed at [facility] [place];[address] | | LAB | | | | [address];[place] | | | | | | [address] | | | | + + + + + + | Calcium | 6.7 (L)Comment: Testing | 8.5 - 10.2 | EXTERNAL | | | | performed at [facility] [place];[address] | mg/dL | LAB | | | | [address];[place], [place] | | | | | | [address] | | | | + + [...] | | | | | | at [facility] [place];[address];[place] [address] | | | | + + + [...] EXTERNAL | | | | performed at [facility] [place];[address] | mmol/L | LAB | | | | [address];[place] | | | | | | [address] | | | | + + + [...] | | | Fingerstick | performed at [facility] [place];[address] | | LAB | | | | [address];[place], [place] | | | | | | [address] | | | | + + + [...] At | + + + | MACKENZIE ISAAC ABDOMEN LIMITED 04/22/2014 2:37 PM HISTORY: | [...] | | | | | + + RANJAN GARCIA, Arterial (04/22/2014 1:41 PM PST) + + + + + + | Component | Value | Ref Range | Performed | Pathologist | | | | | At | Signature | + + + + + + | FiO2, POC | 40Comment: Testing | % | EXTERNAL | | | | performed at [facility] [place];[address] | | LAB | | | | [address];[place] | | | | | | [address] | | | | + + + + + + | PH ART | 7.140 (LL)Comment: | 7.350 - 7.450 | EXTERNAL | | | | Testing performed at | | LAB | | | | [facility] [place];[address];[place] [address] | | | | + + + + + + | PCO2 ART | 38Comment: Testing | 35 - 45 mmHg | EXTERNAL | | | | performed at [facility] [place];[address] | | LAB | | | | [address];[place] | | | | | | [address] | | | | + + + + + + | PO2 ART | 104Comment: Testing | 80 - 105 mmHg | EXTERNAL | | | | performed at [facility] [place];[address] | | LAB | | | | [address];[place] | | | | | | [address] | | | | + + + + + + | HCO3 ART | 13 (L)Comment: Testing | 22 - 26 mmol/L | EXTERNAL | | | | performed at [facility] [place];[address] | | LAB | | | | [address];[place] | | | | | | [address] | | | | + + + + + + | POC | 14 (L)Comment: Testing | 23 - 27 mEq/L | EXTERNAL | | | APPEARANCE | performed at [facility];[address] | | LAB | | | UA | [address];[place] | | | | | | [address] | | | | + + + + + + | Base | 16 (H)Comment: Testing | 0.0 - 2.0 | EXTERNAL | | | deficit | performed at [facility] [place];[address] | mmol/L | LAB | | | | [address];[place] | | | | | | [address] | | | | + + + + + + | O2 SAT ART | 96Comment: Testing | 95 - 98 % | EXTERNAL | | | | performed at [facility] [place];[address] | | LAB | | | | [address];[place] | | | | | | [address] | | | | + + + + + + | Sodium, POC | 146 (H)Comment: Testing | 135 - 145 mEq/L | EXTERNAL | | | | performed at [facility];[address] | | LAB | | | | [address];[place] | | | | | | [address] | | | | + + + + + + | Potassium, | 5.0Comment: Testing | 3.5 - 5.0 mEq/L | EXTERNAL | | | POC | performed at [facility];[address] | | LAB | | | | [address];[place] | | | | | | [address] | | | | + + + + + + | Ionized | 1.15Comment: Testing | 1.12 - 1.32 | EXTERNAL | | | Calcium, | performed at [facility];888 | mmol/L | LAB | | | POC | [address];[place] | | | | | | [address] | | | | + + + + + + | Glucose, | 265 (H)Comment: Testing | 65 - 99 mg/dL | EXTERNAL | | | POC | performed at [facility];[address] | | LAB | | | | [address];[place] | | | | | | [address] | | | | + + + + + + | Hematocrit, | <10 (LL)Comment: Testing | 35.0 - 46.0 % | EXTERNAL | | | POC | performed at [facility];[address] | | LAB | | | | [address];[place] | | | | | | [address] | | | | + + + + + + | Comment, | Tidal Volume = | | EXTERNAL | | | POC | 16Comment: Peep = 8Resp | | LAB | | | | Rate = 46Testing | | | | | | performed at [facility];888 | | | | | | [facility];[place], [place] | | | | | | [address] | | | | + + + [...] | | | Fingerstick | performed at [facility];[address] | | LAB | | | | [address];[place], [place] | | | | | | [address] | | | | + + + [...] | | | Fingerstick | performed at [facility];[address] | | LAB | | | | [address];[place] | | | | | | [address] [...] [facility] Conversion - 11/24/2018 6:38 AM PDT HISTORY:Difficulty [...] EXTERNAL | | | | performed at [facility] | | LAB | | | | [address];[place], [place] | | | | | | [address] | | | | + + + [...] EXTERNAL | | | | performed at [facility] | | LAB | | | | [address] [facility];[place] | | | | | | [address] | | | | + + + [...] | | | | | | at [facility];[address] [place] [address] | | | | | | Blvd;[place] [address] | | | | + + [...] | | | Patient | performed at [facility];[address] | | LAB | | | | [address];[place], [place] | | | | | | [address] | | | | + + + [...] | | | | | performed at [facility];[address] | | | | | | [address];[place], [place] | | | | | | [address] | | | | + + + [...] EXTERNAL | | | | performed at [facility];[address] | | LAB | | | | [address];[place] | | | | | | [address] | | | | + + + + + + | RED CELL | 3.56 (L)Comment: Testing | 3.70 - 5.10 | EXTERNAL | | | COUNT | performed at [facility];888 | M/uL | LAB | | | | [address];[place] | | | | | | [address] | | | | + + + + + + | Hgb | 8.7 (L)Comment: Testing | 11.3 - 15.5 | EXTERNAL | | | | performed at [facility];888 | g/dL | LAB | | | | [address];[place] | | | | | | [address] | | | | + + + + + + | Hematocrit, | 29.0 (L)Comment: Testing | 34.0 - 46.0 % | EXTERNAL | | | POC | performed at [facility];[address] | | LAB | | | | [address];[place] | | | | | | [address] | | | | + + + + + + | MCV | 81.3Comment: Testing | 80.0 - 100.0 fl | EXTERNAL | | | | performed at [facility];[address] | | LAB | | | | [address];[place] | | | | | | [address] | | | | + + + + + + | MCH | 24.4 (L)Comment: Testing | 27.0 - 34.0 pg | EXTERNAL | | | | performed at [facility];[address] | | LAB | | | | [address];[place] | | | | | | [address] | | | | + + + + + + | MCHC | 30.0 (L)Comment: Testing | 32.0 - 35.5 | EXTERNAL | | | | performed at [facility];888 | g/dL | LAB | | | | [address];[place] | | | | | | [address] | | | | + + + + + + | RDW-CV | 63.9 (H)Comment: Testing | 37 - 53 fl | EXTERNAL | | | | performed at [facility];[address] | | LAB | | | | [address];[place] | | | | | | [address] | | | | + + + + + + | Platelet | 330Comment: Testing | 150 - 400 K/uL | EXTERNAL | | | Count | performed at [facility];[address] | | LAB | | | Plasma | [address];[place] | | | | | | [address] | | | | + + + + + + | MPV | 8.6Comment: Testing | fl | EXTERNAL | | | | performed at [facility];[address] | | LAB | | | | [address];[place] | | | | | | [address] | | | | + + + + + + | Differentia | MANUALComment: Testing | | EXTERNAL | | | l Type | performed at [facility];[address] | | LAB | | | | [address];[place] | | | | | | [address] | | | | + + + + + + | Segmented | 77Comment: Testing | % | EXTERNAL | | | Neutrophils | performed at [facility];[address] | | LAB | | | Manual | [address];[place] | | | | | | [address] | | | | + + + + + + | % Bands | 4Comment: Testing | % | EXTERNAL | | | | performed at [facility];[address] | | LAB | | | | [address];[place] | | | | | | [address] | | | | + + + + + + | % | 3Comment: Testing | % | EXTERNAL | | | Metamyelocy | performed at [facility];[address] | | LAB | | | pteros | [address];[place] | | | | | | [address] | | | | + + + + + + | % | 1Comment: Testing | % | EXTERNAL | | | Myelocytes | performed at [facility];[address] | | LAB | | | | [address];[place] | | | | | | [address] | | | | + + + + + + | Lymphocytes | 10Comment: Testing | % | EXTERNAL | | | Manual | performed at [facility];[address] | | LAB | | | | [address];[place] | | | | | | [address] | | | | + + + + + + | Monocytes | 5Comment: Testing | % | EXTERNAL | | | Manual | performed at [facility];[address] | | LAB | | | | [address];[place] | | | | | | [address] | | | | + + + + + + | Absolute | 17.8 (H)Comment: Testing | 1.9 - 7.4 K/uL | EXTERNAL | | | Neutrophils | performed at [facility];[address] | | LAB | | | | [address];[place] | | | | | | [address] | | | | + + + + + + | Bands | 0.9 (H)Comment: Testing | 0 - 0.2 K/uL | EXTERNAL | | | Manual | performed at [facility];[address] | | LAB | | | | [address];[place] | | | | | | [address] | | | | + + + + + + | Absolute | 0.7 (H)Comment: Testing | K/uL | EXTERNAL | | | Metamyelocy | performed at [facility];[address] | | LAB | | | petros | [address];[place] | | | | | | [address] | | | | + + + + + + | Absolute | 0.2 (H)Comment: Testing | K/uL | EXTERNAL | | | Myelocytes | performed at [facility];[address] | | LAB | | | | [address];[place] | | | | | | [address] | | | | + + + + + + | Absolute | 2.3Comment: Testing | 1.0 - 3.9 K/uL | EXTERNAL | | | Lymphocytes | performed at [facility];[address] | | LAB | | | | [address];[place] | | | | | | [address] | | | | + + + + + + | Absolute | 1.2 (H)Comment: Testing | 0 - 0.8 K/uL | EXTERNAL | | | Monocytes | performed at [facility];[address] | | LAB | | | | [address];[place] | | | | | | [address] | | | | + + + + + + | RBC | 2+Comment: | | EXTERNAL | | | Morphology | HYPO3+ANISO1+POIK1+TARGE | | LAB | | | | TNORMAL PLT MORPHTesting | | | | | | performed at [facility];[address] | | | | | | [facility];[place], [place] | | | | | | [address] | | | | | |POIK | | | | | |1+ | | | | | |TARGET | | | | | |NORMAL PLT MORPH | | | | | |Testing performed at [facility];[address] [facility];[place] [address] | | | | | | | [...] EXTERNAL | | | | performed at [facility], [address] | mg/dL | LAB | | | | [address], | | | | | | [place] [address] | | | | + + + [...] EXTERNAL | | | | performed at [facility], [address] | | LAB | | | | [address], | | | | | | [place] [address] | | | | + + + [...] EXTERNAL | | | | performed at [facility];[address] | | LAB | | | | [address];[place] | | | | | | [address] | | | | + + + [...] EXTERNAL | | | | performed at [facility], [address] | | LAB | | | | [address], | | | | | | [place] [address] | | | | + + + [...] | | | Total | performed at [facility], [address] | | LAB | | | | [address], | | | | | | [place] [address] | | | | + + + + + + | Albumin | 2.4 (L)Comment: Testing | 3.6 - 5.0 g/dL | EXTERNAL | | | | performed at [facility], [address] | | LAB | | | | [address], | | | | | | [place] [address] | | | | + + + + + + | Bilirubin | 0.5Comment: Testing | 0.1 - 1.5 mg/dL | EXTERNAL | | | Total | performed at [facility], [address] | | LAB | | | | [address], | | | | | | [place] [address] | | | | + + + + + + | Bilirubin | 0.1Comment: Testing | 0.0 - 0.3 mg/dL | EXTERNAL | | | Direct | performed at [facility], [address] | | LAB | | | | [address], | | | | | | [place] [address] | | | | + + + + + + | ALP, | 131 (H)Comment: Testing | 35 - 115 U/L | EXTERNAL | | | External | performed at [facility], [address] | | LAB | | | | [address], | | | | | | [place] [address] | | | | + + + + + + | AST | 20Comment: Testing | 10 - 45 U/L | EXTERNAL | | | | performed at [facility], [address] | | LAB | | | | [address], | | | | | | [place] [address] | | | | + + + + + + | ALT | 11Comment: Testing | 10 - 65 U/L | EXTERNAL | | | | performed at [facility], [address] | | LAB | | | | [address], | | | | | | [place] [address] | | | | + + + [...] EXTERNAL | | | | performed at [facility], [address] | | LAB | | | | [address], | | | | | | [place] [address] | | | | + + + + + + | Triglycerid | 151 (H)Comment: Testing | mg/dL | EXTERNAL | | | es | performed at [facility], [address] | | LAB | | | | [address], | | | | | | [place] [address] | | | | + + + + + + | HDL | 58Comment: Testing | mg/dL | EXTERNAL | | | | performed at [facility], [address] | | LAB | | | [address], | | | | | | [place] [address] | | | | + + + + + + | LDL | 125 (H)Comment: Testing | mg/dL | EXTERNAL | | | Cholesterol | performed at [facility], [address] | | LAB | | | , | [address], | | | | | Calculated, | [place] [address] | | | | | External | [...] | | | | | [place] [address] | | | | + + + + + + | K | 4.0Comment: Testing | 3.5 - 4.9 | EXTERNAL | | | | performed at [facility], [address] | mmol/L | LAB | | | | [address], | | | | | | [place] [address] | | | | + + + [...] | | | | | [place] [address] | | | | + + + + + + | Anion Gap | 13Comment: Testing | 5 - 20 mmol/L | EXTERNAL | | | | performed at [facility], [address] | | LAB | | | | [address], | | | | | | [place] [address] | | | | + + + + + + | Glucose, | 123 (H)Comment: Testing | 65 - 99 mg/dL | EXTERNAL | | | Fasting | performed at [facility], [address] | | LAB | | | | [address], | | | | | | [place] [address] | | | | + + + + + + | BUN | 30 (H)Comment: Testing | 8 - 25 mg/dL | EXTERNAL | | | | performed at [facility], [address] | | LAB | | | | [address], | | | | | | [place] [address] | | | | + + + + + + | Creatinine | 0.64Comment: Testing | 0.50 - 1.00 | EXTERNAL | | | | performed at [facility], [address] | mg/dL | LAB | | | | [address], | | | | | | [place] [address] | | | | + + + + + + | BUN/Creatin | 47Comment: Testing | | EXTERNAL | | | ine Ratio | performed at [facility], [address] | | LAB | | | | [address], | | | | | | [place] [address] | | | | + + + + + + | Calcium | 8.8Comment: Testing | 8.5 - 10.2 | EXTERNAL | | | | performed at [facility], [address] | mg/dL | LAB | | | | [address], | | | | | | [place] [address] | | | | + + + [...] | | | | | | at [facility], [address] | | | | | | [address] [address], | | | | | | [place] [address] | | | | + + + [...] AC | | | Testing performed at [facility];[address] | | | [facility];[place] [address] CULTURE | | | NO GROWTH | | | Testing performed at [facility], [address] [facility], [place], [place] | | | [address] | | + + + + +---------+ [...] AC | | | Testing performed at [facility];[address] | | | [facility];[place] [address] CULTURE | | | NO GROWTH | | | Testing performed at [facility], [address] [facility], [place], [place] | | | [address] | | + + + + +---------+ [...] EXTERNAL | | | | performed at [facility];888 | mmol/L | LAB | | | | [facility];[place], [place] | | | | | | [address] | | | | + + + [...] | | | Fingerstick | performed at [facility];[address] | | LAB | | | | [address];[place] | | | | | | [address] | | | | + + + [...] EXTERNAL | | | | performed at [facility];[address] | | LAB | | | | [address];[place] | | | | | | [address] | | | | + + + + + + | RED CELL | 3.11 (L)Comment: Testing | 3.70 - 5.10 | EXTERNAL | | | COUNT | performed at [facility];888 | M/uL | LAB | | | | [address];[place] | | | | | | [address] | | | | + + + + + + | Hgb | 7.6 (L)Comment: Testing | 11.3 - 15.5 | EXTERNAL | | | | performed at [facility];888 | g/dL | LAB | | | | [address];[place] | | | | | | [address] | | | | + + + + + + | Hematocrit, | 25.7 (L)Comment: Testing | 34.0 - 46.0 % | EXTERNAL | | | POC | performed at [facility];[address] | | LAB | | | | [address];[place] | | | | | | [address] | | | | + + + + + + | MCV | 82.8Comment: Testing | 80.0 - 100.0 fl | EXTERNAL | | | | performed at [facility];[address] | | LAB | | | | [address];[place] | | | | | | [address] | | | | + + + + + + | MCH | 24.6 (L)Comment: Testing | 27.0 - 34.0 pg | EXTERNAL | | | | performed at [facility];[address] | | LAB | | | | [address];[place] | | | | | | [address] | | | | + + + + + + | MCHC | 29.7 (L)Comment: Testing | 32.0 - 35.5 | EXTERNAL | | | | performed at [facility];888 | g/dL | LAB | | | | [address];[place] | | | | | | [address] | | | | + + + + + + | RDW-CV | 66.5 (H)Comment: Testing | 37 - 53 fl | EXTERNAL | | | | performed at [facility];[address] | | LAB | | | | [address];[place] | | | | | | [address] | | | | + + + + + + | Platelet | 318Comment: Testing | 150 - 400 K/uL | EXTERNAL | | | Count | performed at [facility];[address] | | LAB | | | Plasma | [address];[place] | | | | | | [address] | | | | + + + + + + | MPV | 9.1Comment: Testing | fl | EXTERNAL | | | | performed at [facility];[address] | | LAB | | | | [address];[place] | | | | | | [address] | | | | + + + + + + | Differentia | MANUALComment: Testing | | EXTERNAL | | | l Type | performed at [facility];[address] | | LAB | | | | [address];[place] | | | | | | [address] | | | | + + + + + + | Nucleated | 1 (H)Comment: Testing | /100WBC | EXTERNAL | | | Red Blood | performed at [facility];[address] | | LAB | | | Cells | [address];[place] | | | | | | [address] | | | | + + + + + + | Segmented | 70Comment: Testing | % | EXTERNAL | | | Neutrophils | performed at [facility];[address] | | LAB | | | Manual | [address];[place] | | | | | | [address] | | | | + + + + + + | % Bands | 4Comment: Testing | % | EXTERNAL | | | | performed at [facility];[address] | | LAB | | | | [address];[place] | | | | | | [address] | | | | + + + + + + | % | 2Comment: Testing | % | EXTERNAL | | | Metamyelocy | performed at [facility];[address] | | LAB | | | petors | [address];[place] | | | | | | [address] | | | | + + + + + + | % | 1Comment: Testing | % | EXTERNAL | | | Myelocytes | performed at [facility];[address] | | LAB | | | | [address];[place] | | | | | | [address] | | | | + + + + + + | Lymphocytes | 14Comment: Testing | % | EXTERNAL | | | Manual | performed at [facility];[address] | | LAB | | | | [address];[place] | | | | | | [address] | | | | + + + + + + | Monocytes | 9Comment: Testing | % | EXTERNAL | | | Manual | performed at [facility];[address] | | LAB | | | | [address];[place] | | | | | | [address] | | | | + + + + + + | Absolute | 15.0 (H)Comment: Testing | 1.9 - 7.4 K/uL | EXTERNAL | | | Neutrophils | performed at [facility];[address] | | LAB | | | | [address];[place] | | | | | | [address] | | | | + + + + + + | Bands | 0.9 (H)Comment: Testing | 0 - 0.2 K/uL | EXTERNAL | | | Manual | performed at [facility];[address] | | LAB | | | | [address];[place] | | | | | | [address] | | | | + + + + + + | Absolute | 0.4 (H)Comment: Testing | K/uL | EXTERNAL | | | Metamyelocy | performed at [facility];[address] | | LAB | | | [address] | [address];[place] | | | | | | [address] | | | | + + + + + + | Absolute | 0.2 (H)Comment: Testing | K/uL | EXTERNAL | | | Myelocytes | performed at [facility];[address] | | LAB | | | | [address];[place] | | | | | | [address] | | | | + + + + + + | Absolute | 3.0Comment: Testing | 1.0 - 3.9 K/uL | EXTERNAL | | | Lymphocytes | performed at [facility];[address] | | LAB | | | | [address];[place] | | | | | | [address] | | | | + + + + + + | Absolute | 1.9 (H)Comment: Testing | 0 - 0.8 K/uL | EXTERNAL | | | Monocytes | performed at [facility];[address] | | LAB | | | | [address];[place] | | | | | | [address] | | | | + + + + + + | Platelet | ADEQUATEComment: Testing | | EXTERNAL | | | Estimate | performed at [facility];[address] | | LAB | | | | [address];[place] | | | | | | [address] | | | | + + + + + + | RBC | 3+Comment: | | EXTERNAL | | | Morphology | ANISO1+HYPO1+TARGETNORMA | | LAB | | | | L PLT MORPHTesting | | | | | | performed at [facility];[address] | | | | | | [address];[place] | | | | | | [address] | | | | | |TARGET | | | | | |NORMAL PLT MORPH | | | | | |Testing performed at [facility];[address] [facility];[place] [address] | | | | | | | [...] EXTERNAL | | | | performed at [facility];[address] | | LAB | | | | [address];[place], [place] | | | | | | [address] | | | | + + + [...] EXTERNAL | | | | performed at [facility];[address] | | LAB | | | | [address];[place] | | | | | | [address] | | | | + + + [...] EXTERNAL | | | | performed at [facility];888 | mmol/L | LAB | | | | [address];[place] | | | | | | [address] | | | | + + + + + + | K | 4.2Comment: Testing | 3.5 - 4.9 | EXTERNAL | | | | performed at [facility];[address] | mmol/L | LAB | | | | [address];[place] | | | | | | [address] | | | | + + + + + + | Cl | 110 (H)Comment: Testing | 99 - 109 mmol/L | EXTERNAL | | | | performed at [facility];[address] | | LAB | | | | [address];[place] | | | | | | [address] | | | | + + + + + + | CO2 | 35 (H)Comment: Testing | 23 - 32 mmol/L | EXTERNAL | | | | performed at [facility];[address] | | LAB | | | | [address];[place] | | | | | | [address] | | | | + + + + + + | Anion Gap | 8Comment: Testing | 5 - 20 mmol/L | EXTERNAL | | | | performed at [facility];[address] | | LAB | | | | [address];[place] | | | | | | [address] | | | | + + + + + + | Glucose, | 120 (H)Comment: Testing | 65 - 99 mg/dL | EXTERNAL | | | Fasting | performed at [facility];[address] | | LAB | | | | [address];[place] | | | | | | [address] | | | | + + + + + + | BUN | 30 (H)Comment: Testing | 8 - 25 mg/dL | EXTERNAL | | | | performed at [facility];[address] | | LAB | | | | [address];[place] | | | | | | [address] | | | | + + + + + + | Creatinine | 0.87Comment: Testing | 0.50 - 1.00 | EXTERNAL | | | | performed at [facility];888 | mg/dL | LAB | | | | [address];[place] | | | | | | [address] | | | | + + + + + + | BUN/Creatin | 35Comment: Testing | | EXTERNAL | | | ine Ratio | performed at [facility];[address] | | LAB | | | | [address];[place] | | | | | | [address] | | | | + + + + + + | Calcium | 8.0 (L)Comment: Testing | 8.5 - 10.2 | EXTERNAL | | | | performed at [facility];888 | mg/dL | LAB | | | | [address];[place] | | | | | | [address] | | | | + + + [...] | | | | | | at [facility];[address];[place] [address] | | | | + + + [...] EXTERNAL | | | | performed at [facility];888 | mmol/L | LAB | | | | [address];[place], [place] | | | | | | [address] | | | | + + + [...] | | | Random | performed at [facility] | | LAB | | | | Clarice Zamora;[place], [place] | | | | | | [address] | | | | + + + [...] | | | Fingerstick | performed at [facility];[address] | | LAB | | | | Clarice [address]oredo;[place], [place] | | | | | | [address] | | | | + + + [...] | | | Patient | performed at [facility];[address] | | LAB | | | | [address];[place], [place] | | | | | | [address] | | | | + + + [...] | | | Fingerstick | performed at [facility];[address] | | LAB | | | | Clarice [address]oredo;[place] | | | | | | [address] | | | | + + + [...] Conversion - 11/24/2018 6:38 AM PDT MACKENZIE [id number] yearsXR CHEST 1 | | VIEW04/21/2014 5:52 [...] | | | | | performed at [facility];[address] | | | | | | [facility] [facility];[place], [place] | | | | | | [address] | | | | + + + [...] EXTERNAL | | | | performed at [facility], [address] | | LAB | | | | [address], | | | | | | [place] [address] | | | | + + +---- + + + | RED CELL | 3.26 (L)Comment: Testing | 3.7 0 - 5.10 | EXTERNAL | | | COUNT | performed at [facility], [address] | M/u L | LAB | | | | [address], | | | | | | [place] [address] | | | | + + +---- + + + | Hgb | 8.2 (L)Comment: Testing | 11. 3 - 15.5 | EXTERNAL | | | | performed at [facility], [address] | g/d L | LAB | | | | [address], | | | | | | [place] [address] | | | | + + +---- + + + | Hematocrit, | 27.1 (L)Comment: Testing | 34. 0 - 46.0 % | EXTERNAL | | | POC | performed at [facility], [address] | | LAB | | | | [address], | | | | | | [place] [address] | | | | + + +---- + + + | MCV | 83.1Comment: Testing | 80. 0 - 100.0 fl | EXTERNAL | | | | performed at [facility], [address] | | LAB | | | | [address], | | | | | | [place] [address] | | | | + + +---- + + + | MCH | 25.0 (L)Comment: Testing | 27. 0 - 34.0 pg | EXTERNAL | | | | performed at [facility], [address] | | LAB | | | | [address], | | | | | | [place] [address] | | | | + + +---- + + + | MCHC | 30.1 (L)Comment: Testing | 32. 0 - 35.5 | EXTERNAL | | | | performed at [facility], [address] | g/d L | LAB | | | | [address], | | | | | | [place] [address] | | | | + + +---- + + + | RDW-CV | 67.4 (H)Comment: Testing | 37 - 53 fl | EXTERNAL | | | | performed at [facility], [address] | | LAB | | | | [address], | | | | | | [place] [address] | | | | + + +---- + + + | Platelet | 340Comment: Testing | 150 - 400 K/uL | EXTERNAL | | | Count | performed at [facility], [address] | | LAB | | | Plasma | [address], | | | | | | [place] [address] | | | | + + +---- + + + | MPV | 9.2Comment: Testing | fl | EXTERNAL | | | | performed at [facility], [address] | | LAB | | | | [address], | | | | | | [place] [address] | | | | + + +---- + + + | Differentia | MANUALComment: Testing | | EXTERNAL | | | l Type | performed at [facility], [address] | | LAB | | | | [address], | | | | | | [place] [address] | | | | + + +---- + + + | Nucleated | 1 (H)Comment: Testing | /10 0WBC | EXTERNAL | | | Red Blood | performed at [facility], [address] | | LAB | | | Cells | [address], | | | | | | [place] [address] | | | | + + +---- + + + | Segmented | 80Comment: Testing | % | EXTERNAL | | | Neutrophils | performed at [facility], [address] | | LAB | | | Manual | [address], | | | | | | [place] [address] | | | | + + +---- + + + | % | 2Comment: Testing | % | EXTERNAL | | | Metamyelocy | performed at [facility], [address] | | LAB | | | petros | [address], | | | | | | [place] [address] | | | | + + +---- + + + | % | 1Comment: Testing | % | EXTERNAL | | | Myelocytes | performed at [facility], [address] | | LAB | | | | [address], | | | | | | [place] [address] | | | | + + +---- + + + | Lymphocytes | 7Comment: Testing | % | EXTERNAL | | | Manual | performed at [facility], [address] | | LAB | | | | [address], | | | | | | [place] [address] | | | | + + +---- + + + | Monocytes | 10Comment: Testing | % | EXTERNAL | | | Manual | performed at [facility], [address] | | LAB | | | | [address], | | | | | | [place] [address] | | | | + + +---- + + + | Absolute | 15.4 (H)Comment: Testing | 1.9 - 7.4 K/uL | EXTERNAL | | | Neutrophils | performed at [facility], [address] | | LAB | | | | [address], | | | | | | [place] [address] | | | | + + +---- + + + | Absolute | 0.4 (H)Comment: Testing | K/u L | EXTERNAL | | | Metamyelocy | performed at [facility], [address] | | LAB | | | petros | [address], | | | | | | [place] [address] | | | | + + +---- + + + | Absolute | 0.2 (H)Comment: Testing | K/u L | EXTERNAL | | | Myelocytes | performed at [facility], [address] | | LAB | | | | [address], | | | | | | [place] [address] | | | | + + +---- + + + | Absolute | 1.3Comment: Testing | 1.0 - 3.9 K/uL | EXTERNAL | | | Lymphocytes | performed at [facility], [address] | | LAB | | | | [address], | | | | | | [place] [address] | | | | + + +---- + + + | Absolute | 1.9 (H)Comment: Testing | 0 - 0.8 K/uL | EXTERNAL | | | Monocytes | performed at [facility], [address] | | LAB | | | | [address], | | | | | | [place] [address] | | | | + + +---- + + + | RBC | 3+Comment: | | EXTERNAL | | | Morphology | ANISO1+TARGETNORMAL PLT | | LAB | | | | MORPHTesting performed | | | | | | at [facility], [address] | | | | | | [facility], | | | | | | [place] [address] | | | | | |Testing performed at [facility], [address] [facility], [place] [address] | | | | | | | [...] EXTERNAL | | | | performed at [facility], [address] | | LAB | | | | [address], | | | | | | [place] [address] | | | | + + + [...] | | | | | [place] [address] | | | | + + + [...] | | | | | [place] [address] | | | | + + + + + + | K | 4.1Comment: Testing | 3.5 - 4.9 | EXTERNAL | | | | performed at [facility], [address] | mmol/L | LAB | | | | [address], | | | | | | [place] [address] | | | | + + + + + + | Cl | 110 (H)Comment: Testing | 99 - 109 mmol/L | EXTERNAL | | | | performed at [facility], [address] | | LAB | | | | [address], | | | | | | [place] [address] | | | | + + + + + + | CO2 | 34 (H)Comment: Testing | 23 - 32 mmol/L | EXTERNAL | | | | performed at [facility], [address] | | LAB | | | | [address], | | | | | | [place] [address] | | | | + + + + + + | Anion Gap | 7Comment: Testing | 5 - 20 mmol/L | EXTERNAL | | | | performed at [facility], [address] | | LAB | | | | [address], | | | | | | [place] [address] | | | | + + + + + + | Glucose, | 133 (H)Comment: Testing | 65 - 99 mg/dL | EXTERNAL | | | Fasting | performed at [facility], [address] | | LAB | | | | [address], | | | | | | [place] [address] | | | | + + + + + + | BUN | 29 (H)Comment: Testing | 8 - 25 mg/dL | EXTERNAL | | | | performed at [facility], [address] | | LAB | | | | [address], | | | | | | [place] [address] | | | | + + + + + + | Creatinine | 0.61Comment: Testing | 0.50 - 1.00 | EXTERNAL | | | | performed at [facility], [address] | mg/dL | LAB | | | | [address], | | | | | | [place] [address] | | | | + + + + + + | BUN/Creatin | 48Comment: Testing | | EXTERNAL | | | ine Ratio | performed at [facility], [address] | | LAB | | | | [address], | | | | | | [place] [address] | | | | + + + + + + | Calcium | 8.3 (L)Comment: Testing | 8.5 - 10.2 | EXTERNAL | | | | performed at [facility], [address] | mg/dL | LAB | | | | [address], | | | | | | [place] [address] | | | | + + [...] | | | | | | at [facility], [address] | | | | | | [address], | | | | | | [place] [address] | | | | + + + [...] | | | Patient | performed at [facility];[address] | | LAB | | | | [address];[place] | | | | | | [address] | | | | + + + [...] EXTERNAL | | | | performed at [facility];[address] | mmol/L | LAB | | | | [address];[place], [place] | | | | | | [address] | | | | + + + [...] | | | Fingerstick | performed at [facility];[address] | | LAB | | | | [address];[place] | | | | | | [address] | | | | + + + [...] | | Patient | CALLED TO NAHUN Asher/ICU | | LAB | | | | @2112T BY TLSREAD BACK | | | | | | RESULTS VERIFIEDTesting | | | | | | performed at [facility] | | | | | | [address];[place], [place] | | | | | | [address] | | | | + + + [...] | | | | | performed at [facility];[address] | | | | | | [address];[place] | | | | | | [address] | | | | + + + [...] EXTERNAL | | | | performed at [facility];[address] | mmol/L | LAB | | | | [address];[place], [place] | | | | | | [address] | | | | + + + [...] EXTERNAL | | | | performed at [facility] | | LAB | | | | [address] [facility];[place], [place] | | | | | | [address] | | | | + + + [...] | | | Fingerstick | performed at [facility];[address] | | LAB | | | | [address];[place] | | | | | | [address] | | | | + + + [...] EXTERNAL | | | | performed at [facility];[address] | mmol/L | LAB | | | | [address];[place], [place] | | | | | | [address] | | | | + + + [...] EXTERNAL | | | | performed at [facility];[address] | | LAB | | | | [address];[place], [place] | | | | | | [address] | | | | + + + [...] EXTERNAL | | | | performed at [facility];[address] | | LAB | | | | [address];[place], [place] | | | | | | [address] | | | | + + + [...] | | | Fingerstick | performed at [facility];[address] | | LAB | | | | [address];[place] | | | | | | [address] | | | | + + + + + + + + | Specimen | + + | | + + + +---------+ + + | Performing | Address | City/State/Zipcode | Phone Number | | Organization | | | | + +---------+ + + | EXTERNAL LAB | | | | + +---------+ + + [facility] (04/20/2014 10:10 ZEESHAN HO) + + | Specimen | + + [...] | 1.05 D-E Excursion: 1.76 cm E-F Gage: 0.10 m/s EPSS: 0.24 | | | [...] TR Vmax: 1.63 m/s | | | Bacteriologist Dairy: GD Authenticated by: JOSE KO MD Report | | | Date/Time: 04-20-2014 18:02:29 | | + + + + + | Procedure Note | + + | Judson, Rad Conversion - 11/24/2018 6:38 AM PDT Patient Name: Arpita HARTLEY of | | : 1955 Performing Physician: JOSE KO, | | MD INDICATIONS r | | espiratory failure CONCLUSIONS [...] BPMR-R: 756.65 msLAAs | | A4C: 23.48 [id number] A-L A4C: 64.39 mlLAESV MOD A4C: 63.04 mlLALs A4C: 7.27 cmAo | | Diam: 3.18 cmAV Cusp: 1.94 cmLA Diam: 3.37 cmLA/Ao: 1.05D-E Excursion: 1.76 | | cmE-F Gage: 0.10 m/sEPSS: 0.24 cmHR: 76.38 BPMAV maxP.32 mmHgAV meanPG: | | 3.53 mmHgAV Vmax: 1.25 m/Christine Vmean: 0.89 m/Christine VTI: 20.35 cmAVA Vmax: 2.34 | | cm2AVA (VTI): 2.64 [id number] Dopp: 2.21 l/qdwa7QZYE Dopp: 4.15 l/minHR: 77.06 | | BPMLVOT [...] maxP.67 mmHgTR Vmax: 1.63 m/s | | Bacteriologist Dairy: GDAuthenticated by: Stevan ASKEW Date/Time: 04-20-2014 18:02:29 | [...] | |D-E Excursion: 1.76 cm | |E-F Gage: 0.10 m/s | |EPSS: 0.24 cm | [...] |TR Vmax: 1.63 m/s | | | |Bacteriologist Dairy: GD | |Authenticated by: JOSE KO MD [...] | | | Patient | TO ESTEPHANIA Rich IN ICU AT 1020 | | LAB | | | | BY [employer] BACK RESULTS | | | | | | VERIFIEDTesting | | | | | | performed at [facility];[address] | | | | | | [address];[place], [place] | | | | | | [address] | | | | + + + [...] EXTERNAL | | | | performed at [facility], [address] | | LAB | | | | [address], | | | | | | [place] [address] | | | | + + + [...] EXTERNAL | | | | performed at [facility], [address] | | LAB | | | | [address], | | | | | | [place] [address] | | | | + + + [...] EXTERNAL | | | | performed at [facility];[address] | | LAB | | | | [address];[place], [place] | | | | | | [address] | | | | + + + [...] | | | Fingerstick | performed at [facility];[address] | | LAB | | | | [address];[place] | | | | | | [address] | | | | + + + [...] EXTERNAL | | | | performed at [facility], [address] | | LAB | | | | [address], | | | | | | [place] [address] | | | | + + +---- + + + | RED CELL | 3.57 (L)Comment: Testing | 3.7 0 - 5.10 | EXTERNAL | | | COUNT | performed at [facility], [address] | M/u L | LAB | | | | [address], | | | | | | [place] [address] | | | | + + +---- + + + | Hgb | 8.9 (L)Comment: Testing | 11. 3 - 15.5 | EXTERNAL | | | | performed at [facility], [address] | g/d L | LAB | | | | [address], | | | | | | [place] [address] | | | | + + +---- + + + | Hematocrit, | 29.8 (L)Comment: Testing | 34. 0 - 46.0 % | EXTERNAL | | | POC | performed at [facility], [address] | | LAB | | | | [address], | | | | | | [place] [address] | | | | + + +---- + + + | MCV | 83.5Comment: Testing | 80. 0 - 100.0 fl | EXTERNAL | | | | performed at [facility], [address] | | LAB | | | | [address], | | | | | | [place] [address] | | | | + + +---- + + + | MCH | 24.9 (L)Comment: Testing | 27. 0 - 34.0 pg | EXTERNAL | | | | performed at [facility], [address] | | LAB | | | | [address], | | | | | | [place] [address] | | | | + + +---- + + + | MCHC | 29.9 (L)Comment: Testing | 32. 0 - 35.5 | EXTERNAL | | | | performed at [facility], [address] | g/d L | LAB | | | | [address], | | | | | | [place] [address] | | | | + + +---- + + + | RDW-CV | 67.8 (H)Comment: Testing | 37 - 53 fl | EXTERNAL | | | | performed at [facility], [address] | | LAB | | | | [address], | | | | | | [place] [address] | | | | + + +---- + + + | Platelet | 373Comment: Testing | 150 - 400 K/uL | EXTERNAL | | | Count | performed at [facility], [address] | | LAB | | | Plasma | [address], | | | | | | [place] [address] | | | | + + +---- + + + | MPV | 9.3Comment: Testing | fl | EXTERNAL | | | | performed at [facility], [address] | | LAB | | | | [address], | | | | | | [place] [address] | | | | + + +---- + + + | Differentia | MANUALComment: Testing | | EXTERNAL | | | l Type | performed at [facility], [address] | | LAB | | | | [address], | | | | | | [place] [address] | | | | + + +---- + + + | Nucleated | 3 (H)Comment: Testing | /10 0WBC | EXTERNAL | | | Red Blood | performed at [facility], [address] | | LAB | | | Cells | [address], | | | | | | [place] [address] | | | | + + +---- + + + | Segmented | 71Comment: Testing | % | EXTERNAL | | | Neutrophils | performed at [facility], [address] | | LAB | | | Manual | [address], | | | | | | [place] [address] | | | | + + +---- + + + | % Bands | 2Comment: Testing | % | EXTERNAL | | | | performed at [facility], [address] | | LAB | | | | [address], | | | | | | [place] [address] | | | | + + +---- + + + | Lymphocytes | 17Comment: Testing | % | EXTERNAL | | | Manual | performed at [facility], [address] | | LAB | | | | [address], | | | | | | [place] [address] | | | | + + +---- + + + | Monocytes | 9Comment: Testing | % | EXTERNAL | | | Manual | performed at [facility], [address] | | LAB | | | | [address], | | | | | | [place] [address] | | | | + + +---- + + + | Eosinophils | 1Comment: Testing | % | EXTERNAL | | | Manual | performed at [facility], [address] | | LAB | | | | [address], | | | | | | [place] [address] | | | | + + +---- + + + | Absolute | 15.2 (H)Comment: Testing | 1.9 - 7.4 K/uL | EXTERNAL | | | Neutrophils | performed at [facility], [address] | | LAB | | | | [address], | | | | | | [place] [address] | | | | + + +---- + + + | Bands | 0.4 (H)Comment: Testing | 0 - 0.2 K/uL | EXTERNAL | | | Manual | performed at [facility], [address] | | LAB | | | | [address], | | | | | | [place] [address] | | | | + + +---- + + + | Absolute | 3.6Comment: Testing | 1.0 - 3.9 K/uL | EXTERNAL | | | Lymphocytes | performed at [facility], [address] | | LAB | | | | [address], | | | | | | [place] [address] | | | | + + +---- + + + | Absolute | 1.9 (H)Comment: Testing | 0 - 0.8 K/uL | EXTERNAL | | | Monocytes | performed at [facility], [address] | | LAB | | | | [address], | | | | | | [place] [address] | | | | + + +---- + + + | Absolute | 0.2Comment: Testing | 0 - 0.5 K/uL | EXTERNAL | | | Eosinophils | performed at [facility], [address] | | LAB | | | | [facility], | | | | | | [place] [address] | | | | + + +---- + + + | RBC | 2+Comment: | | EXTERNAL | | | Morphology | ANISO1+POIK2+HYPO1+MICRO | | LAB | | | | 1+TARGETNORMAL PLT | | | | | | MORPHTesting performed | | | | | | at [facility], [address] | | | | | | [facility], | | | | | | [place] [address] | | | | | |1+ | | | | | |MICRO | | | | | |1+ | | | | | |TARGET | | | | | |NORMAL PLT MORPH | | | | | |Testing performed at [facility], [address] [place] [address] | | | | | | | | | | + + +---- + + + | Differentia | SMUDGE CELLSComment: | | EXTERNAL | | | l Comments | Testing performed at | | LAB | | | | [facility], [address] | | | | | | [place], [place] | | | | | | [address] | | | | + + +---- [...] EXTERNAL | | | | performed at [facility];[address] | mmol/L | LAB | | | | [address];[place], [place] | | | | | | [address] | | | | + + + [...] | | | | | | [place] [address] | | | | + + + + + + | T3, Total | 102Comment: Testing | 80 - 200 ng/dL | EXTERNAL | | | | performed at [facility], [address] | | LAB | | | | [place] | | | | | | [place] [address] | | | | + + + [...] EXTERNAL | | | | performed at [facility] | | LAB | | | | [facility];[place], [place] | | | | | | [address] | | | | + + + [...] | | | | | | at [facility];[address] [place] [address] | | | | | | [facility];[place] [address] | | | | + + + [...] EXTERNAL | | | | performed at [facility];[address] | | LAB | | | | [address];[place], [place] | | | | | | [address] | | | | + + + [...] | | | | | | ACUTE [place] Testing | | | | | | performed at [facility];[address] | | | | | | [address];[place], [place] | | | | | | [address] | | | | + + + [...] [place] | | | | | | [address] | | | | + + + + + + | HEP B | NON REACTIVEComment: | | EXTERNAL | | | SURFACE | Testing performed at | | LAB | | | ANTIBODY | [facility], [address] | | | | | | [place] | | | | | | [address] | | | | + + + + + + | HEP B CORE | NON REACTIVEComment: | | EXTERNAL | | | IgM | Testing performed at | | LAB | | | | [facility], [address] | | | | | | [place] | | | | | | [address] | | | | + + + + + + | HCV Ab | NON REACTIVEComment: | | EXTERNAL | | | | Testing performed at | | LAB | | | | [facility], [address] | | | | | | [place] | | | | | | [address] | | | | + + + + + + | Hepatitis | No serologic evidence of | | EXTERNAL | | | Interp.: | HAV, HBV, or HCV | | LAB | | | | infection.Comment: | | | | | | Testing performed at | | | | | | [facility], [address] | | | | | | [place], [place], [place] | | | | | | [address] | | | | + + + [...] | | | | | | P,CHROMATIN, TICKET WRITER, SM | | | | | | TICKET WRITER, SCL-70, CENTROMERE | | | | | | B, SSA, SSB AND SHAZIA-1) | | | | | | WASPERFORMED AND NO | | | | | | AUTOANTIBODIES WERE | | | | | | DETECTED.Testing | | | | | | performed at [facility], [address] | | | | | | [address] | | | | | | [place] [address] | | | | + + + + + + | ANCA Screen | <1:20Comment: REFERENCE | | EXTERNAL | | | | RANGE: <1:20Testing | | LAB | | | | performed at [facility], [address] | | | | | | [address] | | | | | | [place] [address] | | | | + + + [...] | | | | sting performed at [facility], | | | | | | [address], | | | | | | [place] [address] | | | | + + [...] | | | | | | at [facility], [address] | | | | | | [place] | | | | | | [address] | | | | + + + [...] | | | Patient | performed at [facility];[address] | | LAB | | | | [address];[place] | | | | | | [address] | | | | + + + [...] | | | | | performed at [facility];[address] | | | | | | [address] [facility];[place], [place] | | | | | | [address] | | | | + + + [...] | | | FACTOR | performed at [facility], [address] | | LAB | | | | [address] [place], | | | | | | [place] [address] | | | | + + + [...] EXTERNAL | | | | performed at [facility], [address] | uIU/mL | LAB | | | | [address], | | | | | | [place] [address] | | | | + + + [...] | | | (REF) | performed at [facility], [address] | | LAB | | | [...] | | | | | | [place] [address] | | | | + + + [...] EXTERNAL | | | | performed at [facility], [address] | | LAB | | | | [address], | | | | | | [place] [address] | | | | + + + [...] + + | Hemoglobin | 5.4Comment: [employer] [place] | 4.0 - 6.0 % | EXTERNAL [...] | | | | | performed at [facility], [address] | | | | | | [address], | | | | | | [place] [address] | | | | + + + [...] | | | | | performed at [facility], [address] | | | | | | [facility], | | | | | | [place] [address] | | | | + + + [...] EXTERNAL | | | | performed at [facility];[address] | | LAB | | | | [address];[place] | | | | | | [address] | | | | + + + [...] | | | Total | performed at [facility], [address] | | LAB | | | | [address], | | | | | | [place] [address] | | | | + + + + + + | Albumin | 2.2 (L)Comment: Testing | 3.6 - 5.0 g/dL | EXTERNAL | | | | performed at [facility], [address] | | LAB | | | | [address], | | | | | | [place] [address] | | | | + + + + + + | Bilirubin | 0.5Comment: Testing | 0.1 - 1.5 mg/dL | EXTERNAL | | | Total | performed at [facility], [address] | | LAB | | | | [address], | | | | | | [place] [address] | | | | + + + + + + | Bilirubin | 0.1Comment: Testing | 0.0 - 0.3 mg/dL | EXTERNAL | | | Direct | performed at [facility], [address] | | LAB | | | | [address], | | | | | | [place] [address] | | | | + + + + + + | ALP, | 112Comment: Testing | 35 - 115 U/L | EXTERNAL | | | External | performed at [facility], [address] | | LAB | | | | [address], | | | | | | [place] [address] | | | | + + + + + + | AST | 31Comment: Testing | 10 - 45 U/L | EXTERNAL | | | | performed at [facility], [address] | | LAB | | | [address], | | | | | | [place] [address] | | | | + + + + + + | ALT | 15Comment: Testing | 10 - 65 U/L | EXTERNAL | | | | performed at [facility], [address] | | LAB | | | | [address], | | | | | | [place] [address] | | | | + + + [...] | | | | | | [place] [address] | | | | + + + + + + | Triglycerid | 398 (H)Comment: Testing | mg/dL | EXTERNAL | | | es | performed at [facility], [address] | | LAB | | | | [address], | | | | | | [place] [address] | | | | + + + + + + | HDL | 48Comment: Testing | mg/dL | EXTERNAL | | | | performed at [facility], [address] | | LAB | | | | [address], | | | | | | [place] [address] | | | | + + + + + + | LDL | 35Comment: Testing | mg/dL | EXTERNAL | | | Cholesterol | performed at [facility], [address] | | LAB | | | , | [address], | | | | | Calculated, | [place] [address] | | | | | External | [...] | | | | | [place] [address] | | | | + + + + + + | K | 3.1 (L)Comment: Testing | 3.5 - 4.9 | EXTERNAL | | | | performed at [facility], [address] | mmol/L | LAB | | | | [address], | | | | | | [place] [address] | | | | + + + + + + | Cl | 108Comment: Testing | 99 - 109 mmol/L | EXTERNAL | | | | performed at [facility], [address] | | LAB | | | | [address], | | | | | | [place] [address] | | | | + + + + + + | CO2 | 31Comment: Testing | 23 - 32 mmol/L | EXTERNAL | | | | performed at [facility], [address] | | LAB | | | | [address], | | | | | | [place] [address] | | | | + + + + + + | Anion Gap | 8Comment: Testing | 5 - 20 mmol/L | EXTERNAL | | | | performed at [facility], [address] | | LAB | | | | [address], | | | | | | [place] [address] | | | | + + + + + + | Glucose, | 135 (H)Comment: Testing | 65 - 99 mg/dL | EXTERNAL | | | Fasting | performed at [facility], [address] | | LAB | | | | [address], | | | | | | [place] [address] | | | | + + + + + + | BUN | 25Comment: Testing | 8 - 25 mg/dL | EXTERNAL | | | | performed at [facility], [address] | | LAB | | | | [address], | | | | | | [place] [address] | | | | + + + + + + | Creatinine | 0.58Comment: Testing | 0.50 - 1.00 | EXTERNAL | | | | performed at [facility], [address] | mg/dL | LAB | | | | [address], | | | | | | [place] [address] | | | | + + + + + + | BUN/Creatin | 43Comment: Testing | | EXTERNAL | | | ine Ratio | performed at [facility], [address] | | LAB | | | | [address], | | | | | | [place] [address] | | | | + + + + + + | Calcium | 7.8 (L)Comment: Testing | 8.5 - 10.2 | EXTERNAL | | | | performed at [facility], [address] | mg/dL | LAB | | | | [address], | | | | | | [place] [address] | | | | + + + [...] | | | | | | at [facility], [address] | | | | | | [address], | | | | | | [place] [address] | | | | + + + [...] ALBICANSAbnormal | | | Testing performed at [facility], [address] [place] [address] | | | [address] | | + + + + +---------+ [...] | | | Fingerstick | performed at [facility];[address] | | LAB | | | | [address];[place], [place] | | | | | | [address] | | | | + + + [...] GROWTH | | | Testing performed at [facility], [address] | | | [place] [address] | | + + + + +---------+ [...] + + + | MACKENZIE ODILIA CT HEAD WO CONTRAST 04/19/2014 9:30 PM [...] | | tubes are noted on the theatrical trouper image. | | + + + + [...] and endotracheal tubes are noted on the theatrical trouper image. IMPRESSION: 1. No acute | | [...] and endotracheal tubes are noted on the theatrical trouper im age. | | | |IMPRESSION: | [...] PORT | | | Testing performed at [facility];[address] | | | [place] [address] CULTURE | | | NO GROWTH | | | Testing performed at [facility], [address] [facility] [address], [place], [place] | | | [address] | | + + + + +---------+ [...] | | | | | | at [facility], [address] | | | | | | [place], [facility] | | | | | | [address] | | | | + + + [...] EXTERNAL | | | | performed at [facility];[address] | | LAB | | | | [address] [facility];[place], [place] | | | | | | [address] | | | | + + + [...] LAB | | | | performed at [facility] | | | | | | [address];[place] | | | | | | [address] | | | | + + + [...] EXTERNAL | | | | performed at [facility];[address] | mmol/L | LAB | | | | [address];[place] | | | | | | [address] | | | | + + + + + + | K | 4.1Comment: SLT | 3.5 - 4.9 | EXTERNAL | | | | HEMOLYSISTesting | mmol/L | LAB | | | | performed at [facility];[address] | | | | [address];[place] | | | | | | [address] | | | | + + + + + + | Cl | 113 (H)Comment: Testing | 99 - 109 mmol/L | EXTERNAL | | | | performed at [facility];[address] | | LAB | | | | [address];[place] | | | | | | [address] | | | | + + + + + + | CO2 | 29Comment: Testing | 23 - 32 mmol/L | EXTERNAL | | | | performed at [facility];[address] | | LAB | | | | [address];[place] | | | | | | [address] | | | | + + + + + + | Anion Gap | 11Comment: Testing | 5 - 20 mmol/L | EXTERNAL | | | | performed at [facility];[address] | | LAB | | | | [address];[place] | | | | | | [address] | | | | + + + + + + | Glucose, | 120 (H)Comment: Testing | 65 - 99 mg/dL | EXTERNAL | | | Fasting | performed at [facility];[address] | | LAB | | | | [address];[place] | | | | | | [address] | | | | + + + + + + | BUN | 25Comment: Testing | 8 - 25 mg/dL | EXTERNAL | | | | performed at [facility];[address] | | LAB | | | | [address];[place] | | | | | | [address] | | | | + + + + + + | Creatinine | 0.72Comment: Testing | 0.50 - 1.00 | EXTERNAL | | | | performed at [facility];888 | mg/dL | LAB | | | | [address];[place] | | | | | | [address] | | | | + + + + + + | BUN/Creatin | 35Comment: Testing | | EXTERNAL | | | ine Ratio | performed at [facility];[address] | | LAB | | | | [address];[place] | | | | | | [address] | | | | + + + + + + | Calcium | 8.3 (L)Comment: Testing | 8.5 - 10.2 | EXTERNAL | | | | performed at [facility];888 | mg/dL | LAB | | | | [address];[place] | | | | | | [address] | | | | + + + [...] | | | | | | at [facility];[address] [place] [address] | | | | | | [facility];[place] [address] | | | | + + + [...] LAC | | | Testing performed at [facility];[address] | | | [facility];[place] [address] CULTURE | | | NO GROWTH | | | Testing performed at [facility], [address] [facility], [place], [place] | | | [address] | | + + + + +---------+ [...] | | | Fingerstick | performed at [facility];[address] | | LAB | | | | [address];[place] | | | | | | [address] | | | | + + [...] | | | | | performed at [facility] | | | | | | [address] [facility];[place], [place] | | | | | | [address] | | | | + + + [...] | | | Fingerstick | performed at [facility];[address] | | LAB | | | | [address];[place], [place] | | | | | | [address] | | | | + + + [...] | EXTERNAL LAB | | performed at [facility];[address] [place] [address];[place] [address] 027 NAP1 BI | | | 027 NAP1 BI PRESUMPTIVE NEGATIVE | | | Detection of 027 NAP1 BI strains of C. difficile is presumptive and | | | for epidemiological purposes and not intended to guide or monitor | | | treatment for C. difficile infections. Testing performed at [facility];[address] | | | [address];[place] [address] | | + + + + +---------+ [...] EXTERNAL | | | | performed at [facility];888 | mmol/L | LAB | | | | [address];[place], [place] | | | | | | [address] | | | | + + + [...] EXTERNAL | | | | performed at [facility] | | LAB | | | | [address];[place], [place] | | | | | | [address] | | | | + + + [...] EXTERNAL | | | | performed at [facility];[address] | | LAB | | | | [address];[place] | | | | | | [address] | | | | + + + [...] | | | Fingerstick | performed at [facility];[address] | | LAB | | | | [address];[place], [place] | | | | | | [address] | | | | + + + [...] + | MACKENZIE DIANE CHEST 1 VIEW 04/19/2014 5:43 AM HISTORY: [...] 6:38 AM PDT MACKENZIE HARTLEYXR CHEST 1 VIEW04/19/2014 5:43 | | AM [...] | | | | | performed at [facility] | | | | | | [facility];[place], [place] | | | | | | [address] | | | | + + + [...] EXTERNAL | | | | performed at [facility], [address] | | LAB | | | | [address], | | | | | | [place] [address] | | | | + + +---- + + + | RED CELL | 3.63 (L)Comment: Testing | 3.7 0 - 5.10 | EXTERNAL | | | COUNT | performed at [facility], [address] | M/u L | LAB | | | | [address], | | | | | | [place] [address] | | | | + + +---- + + + | Hgb | 9.7 (L)Comment: Testing | 11. 3 - 15.5 | EXTERNAL | | | | performed at [facility], [address] | g/d L | LAB | | | | [address], | | | | | | [place] [address] | | | | + + +---- + + + | Hematocrit, | 30.8 (L)Comment: Testing | 34. 0 - 46.0 % | EXTERNAL | | | POC | performed at [facility], [address] | | LAB | | | | [address], | | | | | | [place] [address] | | | | + + +---- + + + | MCV | 84.8Comment: Testing | 80. 0 - 100.0 fl | EXTERNAL | | | | performed at [facility], [address] | | LAB | | | | [address], | | | | | | [place] [address] | | | | + + +---- + + + | MCH | 26.8 (L)Comment: Testing | 27. 0 - 34.0 pg | EXTERNAL | | | | performed at [facility], [address] | | LAB | | | | [address], | | | | | | [place] [address] | | | | + + +---- + + + | MCHC | 31.6 (L)Comment: Testing | 32. 0 - 35.5 | EXTERNAL | | | | performed at [facility], [address] | g/d L | LAB | | | | [address], | | | | | | [place] [address] | | | | + + +---- + + + | RDW-CV | 68.3 (H)Comment: Testing | 37 - 53 fl | EXTERNAL | | | | performed at [facility], [address] | | LAB | | | | [address], | | | | | | [place] [address] | | | | + + +---- + + + | Platelet | 388Comment: Testing | 150 - 400 K/uL | EXTERNAL | | | Count | performed at [facility], [address] | | LAB | | | Plasma | [address], | | | | | | [place] [address] | | | | + + +---- + + + | MPV | 9.6Comment: Testing | fl | EXTERNAL | | | | performed at [facility], [address] | | LAB | | | | [address], | | | | | | [place] [address] | | | | + + +---- + + + | Differentia | MANUALComment: Testing | | EXTERNAL | | | l Type | performed at [facility], [address] | | LAB | | | | [address], | | | | | | [place] [address] | | | | + + +---- + + + | Nucleated | 1 (H)Comment: Testing | /10 0WBC | EXTERNAL | | | Red Blood | performed at [facility], [address] | | LAB | | | Cells | [address], | | | | | | [place] [address] | | | | + + +---- + + + | Segmented | 77Comment: Testing | % | EXTERNAL | | | Neutrophils | performed at [facility], [address] | | LAB | | | Manual | [address], | | | | | | [place] [address] | | | | + + +---- + + + | % Bands | 6Comment: Testing | % | EXTERNAL | | | | performed at [facility], [address] | | LAB | | | | [address], | | | | | | [place] [address] | | | | + + +---- + + + | % | 2Comment: Testing | % | EXTERNAL | | | Metamyelocy | performed at [facility], [address] | | LAB | | | pet[address] | [address], | | | | | | [place] [address] | | | | + + +---- + + + | Lymphocytes | 12Comment: Testing | % | EXTERNAL | | | Manual | performed at [facility], [address] | | LAB | | | | [address], | | | | | | [place] [address] | | | | + + +---- + + + | Monocytes | 3Comment: Testing | % | EXTERNAL | | | Manual | performed at [facility], [address] | | LAB | | | | [address], | | | | | | [place] [address] | | | | + + +---- + + + | Absolute | 14.0 (H)Comment: Testing | 1.9 - 7.4 K/uL | EXTERNAL | | | Neutrophils | performed at [facility], [address] | | LAB | | | | [address], | | | | | | [place] [address] | | | | + + +---- + + + | Bands | 1.1 (H)Comment: Testing | 0 - 0.2 K/uL | EXTERNAL | | | Manual | performed at [facility], [address] | | LAB | | | | [address], | | | | | | [place] [address] | | | | + + +---- + + + | Absolute | 0.4 (H)Comment: Testing | K/u L | EXTERNAL | | | Metamyelocy | performed at [facility], [address] | | LAB | | | [address] | [address], | | | | | | [place] [address] | | | | + + +---- + + + | Absolute | 2.2Comment: Testing | 1.0 - 3.9 K/uL | EXTERNAL | | | Lymphocytes | performed at [facility], [address] | | LAB | | | | [address], | | | | | | [place] [address] | | | | + + +---- + + + | Absolute | 0.5Comment: Testing | 0 - 0.8 K/uL | EXTERNAL | | | Monocytes | performed at [facility], [address] | | LAB | | | | [address], | | | | | | [place] [address] | | | | + + +---- + + + | RBC | 2+Comment: | | EXTERNAL | | | Morphology | ANISO1+POIK2+HYPO1+MICRO | | LAB | | | | 1+TARGETNORMAL PLT | | | | | | MORPHTesting performed | | | | | | at [facility], [address] | | | | | | [address], | | | | | | [place] [address] | | | | | |1+ | | | | | |MICRO | | | | | |1+ | | | | | |TARGET | | | | | |NORMAL PLT MORPH | | | | | |Testing performed at [facility], [address] [place] [address] | | | | | | | [...] EXTERNAL | | | | performed at [facility], [address] | | LAB | | | | [address], | | | | | | [place] [address] | | | | + + + [...] EXTERNAL | | | | performed at [facility], [address] | | LAB | | | | [address], | | | | | | [place] [address] | | | | + + + [...] | | | | | [place] [address] | | | | + + + + + + | K | 3.1 (L)Comment: Testing | 3.5 - 4.9 | EXTERNAL | | | | performed at [facility], [address] | mmol/L | LAB | | | | [address], | | | | | | [place] [address] | | | | + + + + + + | Cl | 105Comment: Testing | 99 - 109 mmol/L | EXTERNAL | | | | performed at [facility], [address] | | LAB | | | | [address], | | | | | | [place] [address] | | | | + + + + + + | CO2 | 29Comment: Testing | 23 - 32 mmol/L | EXTERNAL | | | | performed at [facility], [address] | | LAB | | | | [address], | | | | | | [place] [address] | | | | + + + + + + | Anion Gap | 9Comment: Testing | 5 - 20 mmol/L | EXTERNAL | | | | performed at [facility], [address] | | LAB | | | | [address], | | | | | | [place] [address] | | | | + + + + + + | Glucose, | 159 (H)Comment: Testing | 65 - 99 mg/dL | EXTERNAL | | | Fasting | performed at [facility], [address] | | LAB | | | | [address], | | | | | | [place] [address] | | | | + + + + + + | BUN | 17Comment: Testing | 8 - 25 mg/dL | EXTERNAL | | | | performed at [facility], [address] | | LAB | | | | [address], | | | | | | [place] [address] | | | | + + + + + + | Creatinine | 0.41 (L)Comment: Testing | 0.50 - 1.00 | EXTERNAL | | | | performed at [facility], [address] | mg/dL | LAB | | | | [address], | | | | | | [place] [address] | | | | + + + + + + | BUN/Creatin | 41Comment: Testing | | EXTERNAL | | | ine Ratio | performed at [facility], [address] | | LAB | | | | [address], | | | | | | [place] [address] | | | | + + + + + + | Calcium | 7.8 (L)Comment: Testing | 8.5 - 10.2 | EXTERNAL | | | | performed at [facility], [address] | mg/dL | LAB | | | | [address], | | | | | | [place] [address] | | | | + + + [...] | | | | | | at [facility], [address] | | | | | | [address], | | | | | | [place] [address] | | | | + + + [...] | | | Fingerstick | performed at [facility];[address] | | LAB | | | | [address];[place], [place] | | | | | | [address] | | | | + + + [...] | | | Fingerstick | performed at [facility];[address] | | LAB | | | | [address];[place] | | | | | | [address] | | | | + + + [...] EXTERNAL | | | | performed at [facility];[address] | mmol/L | LAB | | | | [address];[place], [place] | | | | | | [address] | | | | + + + [...] | | | Fingerstick | performed at [facility];[address] | | LAB | | | | [address];[place] | | | | | | [address] | | | | + + + [...] | + + + | MACKENZIE ODILIA XR CHEST 1 VIEW 04/18/2014 6:43 AM HISTORY: [...] | Procedure Note | + + | Jusdon, Rad Conversion - 11/24/2018 6:38 AM PDT MACKENZIE ODILIAXR CHEST 1 VIEW04/18/2014 6:43 | | AM [...] | | | Fingerstick | performed at [facility];[address] | | LAB | | | | [address];[place] | | | | | | [address] | | | | + + + [...] | | | | | performed at [facility] | | | | | | [address] [facility];[place], [place] | | | | | | [address] | | | | + + + [...] EXTERNAL | | | | performed at [facility], [address] | | LAB | | | | [address], | | | | | | [place] [address] | | | | + + +---- + + + | RED CELL | 3.55 (L)Comment: Testing | 3.7 0 - 5.10 | EXTERNAL | | | COUNT | performed at [facility], [address] | M/u L | LAB | | | | [address], | | | | | | [place] [address] | | | | + + +---- + + + | Hgb | 8.8 (L)Comment: RESULT | 11. 3 - 15.5 | EXTERNAL | | | | VERIFIEDTesting | g/d L | LAB | | | | performed at [facility], [address] | | | | | | [address], | | | | | | [place] [address] | | | | + + +---- + + + | Hematocrit, | 29.5 (L)Comment: RESULT | 34. 0 - 46.0 % | EXTERNAL | | | POC | VERIFIEDTesting | | LAB | | | | performed at [facility], [address] | | | | | | [address], | | | | | | [place] [address] | | | | + + +---- + + + | MCV | 83.2Comment: Testing | 80. 0 - 100.0 fl | EXTERNAL | | | | performed at [facility], [address] | | LAB | | | | [address], | | | | | | [place] [address] | | | | + + +---- + + + | MCH | 24.8 (L)Comment: Testing | 27. 0 - 34.0 pg | EXTERNAL | | | | performed at [facility], [address] | | LAB | | | | [address], | | | | | | [place] [address] | | | | + + +---- + + + | MCHC | 29.8 (L)Comment: Testing | 32. 0 - 35.5 | EXTERNAL | | | | performed at [facility], [address] | g/d L | LAB | | | | [address], | | | | | | [place] [address] | | | | + + +---- + + + | RDW-CV | 64.8 (H)Comment: Testing | 37 - 53 fl | EXTERNAL | | | | performed at [facility], [address] | | LAB | | | | [address], | | | | | | [place] [address] | | | | + + +---- + + + | Platelet | 397Comment: Testing | 150 - 400 K/uL | EXTERNAL | | | Count | performed at [facility], [address] | | LAB | | | Plasma | [address], | | | | | | [place] [address] | | | | + + +---- + + + | MPV | 9.2Comment: Testing | fl | EXTERNAL | | | | performed at [facility], [address] | | LAB | | | | [address], | | | | | | [place] [address] | | | | + + +---- + + + | Differentia | MANUALComment: Testing | | EXTERNAL | | | l Type | performed at [facility], [address] | | LAB | | | | [address], | | | | | | [place] [address] | | | | + + +---- + + + | Nucleated | 2 (H)Comment: Testing | /10 0WBC | EXTERNAL | | | Red Blood | performed at [facility], [address] | | LAB | | | Cells | [address], | | | | | | [place] [address] | | | | + + +---- + + + | Segmented | 72Comment: Testing | % | EXTERNAL | | | Neutrophils | performed at [facility], [address] | | LAB | | | Manual | [address], | | | | | | [place] [address] | | | | + + +---- + + + | % | 2Comment: Testing | % | EXTERNAL | | | Metamyelocy | performed at [facility], [address] | | LAB | | | [address] | [address], | | | | | | [place] [address] | | | | + + +---- + + + | Lymphocytes | 15Comment: Testing | % | EXTERNAL | | | Manual | performed at [facility], [address] | | LAB | | | | [address], | | | | | | [place] [address] | | | | + + +---- + + + | Monocytes | 10Comment: Testing | % | EXTERNAL | | | Manual | performed at [facility], [address] | | LAB | | | | [address], | | | | | | [place] [address] | | | | + + +---- + + + | Eosinophils | 1Comment: Testing | % | EXTERNAL | | | Manual | performed at [facility], [address] | | LAB | | | | [address], | | | | | | [place] [address] | | | | + + +---- + + + | Absolute | 16.5 (H)Comment: Testing | 1.9 - 7.4 K/uL | EXTERNAL | | | Neutrophils | performed at [facility], [address] | | LAB | | | | [address], | | | | | | [place] [address] | | | | + + +---- + + + | Absolute | 0.5 (H)Comment: Testing | K/u L | EXTERNAL | | | Metamyelocy | performed at [facility], [address] | | LAB | | | [address]ros | [address], | | | | | | [place] [address] | | | | + + +---- + + + | Absolute | 3.4Comment: Testing | 1.0 - 3.9 K/uL | EXTERNAL | | | Lymphocytes | performed at [facility], [address] | | LAB | | | | [address], | | | | | | [place] [address] | | | | + + +---- + + + | Absolute | 2.3 (H)Comment: Testing | 0 - 0.8 K/uL | EXTERNAL | | | Monocytes | performed at [facility], [address] | | LAB | | | | [address], | | | | | | [place] [address] | | | | + + +---- + + + | Absolute | 0.2Comment: Testing | 0 - 0.5 K/uL | EXTERNAL | | | Eosinophils | performed at [facility], [address] | | LAB | | | | [facility], | | | | | | [place] [address] | | | | + + +---- + + + | RBC | 2+Comment: | | EXTERNAL | | | Morphology | ANISO1+POIK2+HYPO1+TARGE | | LAB | | | | TNORMAL PLT MORPHTesting | | | | | | performed at [facility], [address] | | | | | | [address] [facility], | | | | | | [place] [address] | | | | | |HYPO | | | | | |1+ | | | | | |TARGET | | | | | |NORMAL PLT MORPH | | | | | |Testing performed at [facility], [address] [facility] [place] [address] | | | | | | | [...] EXTERNAL | | | | performed at [facility], [address] | | LAB | | | | [address], | | | | | | [place] [address] | | | | + + + [...] EXTERNAL | | | | performed at [facility], [address] | | LAB | | | | [address], | | | | | | [place] [address] | | | | + + + [...] EXTERNAL | | | | performed at [facility], [address] | mmol/L | LAB | | | | [address], | | | | | | [place] [address] | | | | + + + + + + | K | 3.2 (L)Comment: Testing | 3.5 - 4.9 | EXTERNAL | | | | performed at [facility], [address] | mmol/L | LAB | | | | [address], | | | | | | [place] [address] | | | | + + + + + + | Cl | 113 (H)Comment: Testing | 99 - 109 mmol/L | EXTERNAL | | | | performed at [facility], [address] | | LAB | | | | [address], | | | | | | [place] [address] | | | | + + + + + + | CO2 | 30Comment: Testing | 23 - 32 mmol/L | EXTERNAL | | | | performed at [facility], [address] | | LAB | | | | [address], | | | | | | [place] [address] | | | | + + + + + + | Anion Gap | 7Comment: Testing | 5 - 20 mmol/L | EXTERNAL | | | | performed at [facility], [address] | | LAB | | | | [address], | | | | | | [place] [address] | | | | + + + + + + | Glucose, | 133 (H)Comment: Testing | 65 - 99 mg/dL | EXTERNAL | | | Fasting | performed at [facility], [address] | | LAB | | | | [address], | | | | | | [place] [address] | | | | + + + + + + | BUN | 22Comment: Testing | 8 - 25 mg/dL | EXTERNAL | | | | performed at [facility], [address] | | LAB | | | | [address], | | | | | | [place] [address] | | | | + + + + + + | Creatinine | 0.68Comment: Testing | 0.50 - 1.00 | EXTERNAL | | | | performed at [facility], [address] | mg/dL | LAB | | | | [address], | | | | | | [place] [address] | | | | + + + + + + | BUN/Creatin | 32Comment: Testing | | EXTERNAL | | | ine Ratio | performed at [facility], [address] | | LAB | | | | [address], | | | | | | [place] [address] | | | | + + + + + + | Calcium | 7.8 (L)Comment: Testing | 8.5 - 10.2 | EXTERNAL | | | | performed at [facility], [address] | mg/dL | LAB | | | | [address], | | | | | | [place] [address] | | | | + + + [...] | | | | | | [address], | | | | | | [place] [address] | | | | + + + [...] | | | Fingerstick | performed at [facility];[address] | | LAB | | | | [address];[place], [place] | | | | | | [address] | | | | + + + [...] EXTERNAL | | | | performed at [facility];[address] | mmol/L | LAB | | | | [address];[place], [place] | | | | | | [address] | | | | + + + [...] EXTERNAL | | | | performed at [facility];[address] | | LAB | | | | [address];[place] | | | | | | [address] | | | | + + + [...] EXTERNAL | | | | performed at [facility];[address] | | LAB | | | | [address];[place] | | | | | | [address] | | | | + + + [...] | | | Fingerstick | performed at [facility];[address] | | LAB | | | | [address];[place] | | | | | | [address] | | | | + + + [...] EXTERNAL | | | | performed at [facility];[address] | mmol/L | LAB | | | | [address];[place], [place] | | | | | | [address] | | | | + + + [...] | | | | | performed at [facility] | | | | | | [address] [facility];[place], [place] | | | | | | [address] | | | | + + + [...] | | | Fingerstick | performed at [facility];[address] | | LAB | | | | [address];[place], [place] | | | | | | [address] | | | | + + + + + + + + | Specimen | + + | | + + + +---------+ + + | Performing | Address | City/State/Zipcode | Phone Number | | Organization | | | | + +---------+ + + | EXTERNAL LAB | | | | + +---------+ + + XR Chest 1 Anders (04/17/2014 6:25 AM PST) + + | [...] 6:38 AM PDT MACKENZIE HARTLEYXR CHEST 1 VIEW04/17/2014 6:25 | | AM [...] | | | Fingerstick | performed at [facility];[address] | | LAB | | | | [address];[place] | | | | | | [address] | | | | + + + [...] | | | | | performed at [facility];[address] | | | | | | [address] [facility];[place], [place] | | | | | | [address] | | | | + + + + + + + + | Specimen | + + | | + + + +---------+ + + | Performing | Address | City/State/Zipcode | Phone Number | | Organization | | | | + +---------+ + + | EXTERNAL LAB | | | | + +---------+ + + External Lab: [facility]HAEL (04/17/2014 3:19 AM PST) + + + + + + | Component | Value | Ref Range | Performed | Pathologist | | | | | At | Signature | + + + + + + | WBC | 19.2 (H)Comment: Testing | 3.8 - 11.0 K/uL | EXTERNAL | | | | performed at [facility];[address] | | LAB | | | | [address];[place] | | | | | | [address] | | | | + + + + + + | RED CELL | 3.78Comment: Testing | 3.70 - 5.10 | EXTERNAL | | | COUNT | performed at [facility];[address] | M/uL | LAB | | | | [address];[place] | | | | | | [address] | | | | + + + + + + | Hgb | 9.2 (L)Comment: Testing | 11.3 - 15.5 | EXTERNAL | | | | performed at [facility];[address] | g/dL | LAB | | | | [address];[place] | | | | | | [address] | | | | + + + + + + | Hematocrit, | 30.7 (L)Comment: Testing | 34.0 - 46.0 % | EXTERNAL | | | POC | performed at [facility];[address] | | LAB | | | | [address];[place] | | | | | | [address] | | | | + + + + + + | MCV | 81.2Comment: Testing | 80.0 - 100.0 fl | EXTERNAL | | | | performed at [facility];[address] | | LAB | | | | [address];[place] | | | | | | [address] | | | | + + + + + + | MCH | 24.2 (L)Comment: Testing | 27.0 - 34.0 pg | EXTERNAL | | | | performed at [facility];[address] | | LAB | | | | [address];[place] | | | | | | [address] | | | | + + + + + + | MCHC | 29.8 (L)Comment: Testing | 32.0 - 35.5 | EXTERNAL | | | | performed at [facility];888 | g/dL | LAB | | | | [address];[place] | | | | | | [address] | | | | + + + + + + | RDW-CV | 63.4 (H)Comment: Testing | 37 - 53 fl | EXTERNAL | | | | performed at [facility];[address] | | LAB | | | | [address];[place] | | | | | | [address] | | | | + + + + + + | Platelet | 385Comment: Testing | 150 - 400 K/uL | EXTERNAL | | | Count | performed at [facility];[address] | | LAB | | | Plasma | [address];[place] | | | | | | [address] | | | | + + + + + + | MPV | 9.1Comment: Testing | fl | EXTERNAL | | | | performed at [facility];[address] | | LAB | | | | [address];[place] | | | | | | [address] | | | | + + + + + + | Differentia | MANUALComment: Testing | | EXTERNAL | | | l Type | performed at [facility];[address] | | LAB | | | | [address];[place] | | | | | | [address] | | | | + + + + + + | Segmented | 83Comment: Testing | % | EXTERNAL | | | Neutrophils | performed at [facility];[address] | | LAB | | | Manual | [address];[place] | | | | | | [address] | | | | + + + + + + | % Bands | 2Comment: Testing | % | EXTERNAL | | | | performed at [facility];[address] | | LAB | | | | [address];[place] | | | | | | [address] | | | | + + + + + + | % | 1Comment: Testing | % | EXTERNAL | | | Metamyelocy | performed at [facility];888 | | LAB | | | petros | [address];[place] | | | | | | [address] | | | | + + + + + + | Lymphocytes | 6Comment: Testing | % | EXTERNAL | | | Manual | performed at [facility];888 | | LAB | | | | [address];[place] | | | | | | [address] | | | | + + + + + + | Monocytes | 8Comment: Testing | % | EXTERNAL | | | Manual | performed at [facility];888 | | LAB | | | | [address];[place] | | | | | | [address] | | | | + + + + + + | Absolute | 15.9 (H)Comment: Testing | 1.9 - 7.4 K/uL | EXTERNAL | | | Neutrophils | performed at [facility];[address] | | LAB | | | | [address];[place] | | | | | | [address] | | | | + + + + + + | Bands | 0.4 (H)Comment: Testing | 0 - 0.2 K/uL | EXTERNAL | | | Manual | performed at [facility];[address] | | LAB | | | | [address];[place] | | | | | | [address] | | | | + + + + + + | Absolute | 0.2 (H)Comment: Testing | K/uL | EXTERNAL | | | Metamyelocy | performed at [facility];[address] | | LAB | | | petros | [address];[place] | | | | | | [address] | | | | + + + + + + | Absolute | 1.2Comment: Testing | 1.0 - 3.9 K/uL | EXTERNAL | | | Lymphocytes | performed at [facility];888 | | LAB | | | | [address];[place] | | | | | | [address] | | | | + + + + + + | Absolute | 1.5 (H)Comment: Testing | 0 - 0.8 K/uL | EXTERNAL | | | Monocytes | performed at [facility];888 | | LAB | | | | [address];[place] | | | | | | [address] | | | | + + + + + + | Platelet | ADEQUATEComment: Testing | | EXTERNAL | | | Estimate | performed at [facility];888 | | LAB | | | | [address];[place] | | | | | | [address] | | | | + + + + + + | RBC | 1+Comment: | | EXTERNAL | | | Morphology | ANISO1+HYPO1+POIK1+TARGE | | LAB | | | | TNORMAL PLT MORPHTesting | | | | | | performed at [facility];888 | | | | | | [address];[place] | | | | | | [address] | | | | | |POIK | | | | | |1+ | | | | | |TARGET | | | | | |NORMAL PLT MORPH | | | | | |Testing performed at [facility];[address] [facility] [address];[place] [address] | | | | | | | [...] EXTERNAL | | | | performed at [facility];888 | | LAB | | | | [address];[place], [place] | | | | | | [address] | | | | + + + [...] EXTERNAL | | | | performed at [facility];888 | | LAB | | | | [address];[place], [place] | | | | | | [address] | | | | + + + [...] EXTERNAL | | | | performed at [facility];888 | mmol/L | LAB | | | | [address];[place] | | | | | | [address] | | | | + + + + + + | K | 3.1 (L)Comment: Testing | 3.5 - 4.9 | EXTERNAL | | | | performed at [facility];888 | mmol/L | LAB | | | | [address];[place] | | | | | | [address] | | | | + + + + + + | Cl | 114 (H)Comment: Testing | 99 - 109 mmol/L | EXTERNAL | | | | performed at [facility];[address] | | LAB | | | | [address];[place] | | | | | | [address] | | | | + + + + + + | CO2 | 31Comment: Testing | 23 - 32 mmol/L | EXTERNAL | | | | performed at [facility];[address] | | LAB | | | | [address];[place] | | | | | | [address] | | | | + + + + + + | Anion Gap | 9Comment: Testing | 5 - 20 mmol/L | EXTERNAL | | | | performed at [facility];[address] | | LAB | | | | [address];[place] | | | | | | [address] | | | | + + + + + + | Glucose, | 163 (H)Comment: Testing | 65 - 99 mg/dL | EXTERNAL | | | Fasting | performed at [facility];[address] | | LAB | | | | [address];[place] | | | | | | [address] | | | | + + + + + + | BUN | 20Comment: Testing | 8 - 25 mg/dL | EXTERNAL | | | | performed at [facility];[address] | | LAB | | | | [address];[place] | | | | | | [address] | | | | + + + + + + | Creatinine | 0.96Comment: Testing | 0.50 - 1.00 | EXTERNAL | | | | performed at [facility];888 | mg/dL | LAB | | | | [address];[place] | | | | | | [address] | | | | + + + + + + | BUN/Creatin | 21Comment: Testing | | EXTERNAL | | | ine Ratio | performed at [facility];[address] | | LAB | | | | [address];[place] | | | | | | [address] | | | | + + + + + + | Calcium | 7.5 (L)Comment: Testing | 8.5 - 10.2 | EXTERNAL | | | | performed at [facility];888 | mg/dL | LAB | | | | [address];[place], [place] | | | | | | [address] [...] | | | | | | at [facility];[address] [facility] | | | | | | Blvd;[place] [address] | | | | + + + [...] | | | Fingerstick | performed at [facility];888 | | LAB | | | | [address];[place] | | | | | | [address] | | | | + + + [...] | | | Fingerstick | performed at [facility];888 | | LAB | | | | [address];[place], [place] | | | | | | [address] | | | | + + + [...] | | | Fingerstick | performed at [facility];[address] | | LAB | | | | [address];[place], [place] | | | | | | [address] | | | | + + + [...] | | | | | performed at [facility] | | | | | | [address];[place], [place] | | | | | | [address] | | | | + + + [...] | | | Fingerstick | performed at [facility];888 | | LAB | | | | [address];[place] | | | | | | [address] | | | | + + + + + + + + | Specimen | + + | | + + + +---------+ + + | Performing | Address | City/State/Zipcode | Phone Number | | Organization | | | | + +---------+ + + | EXTERNAL LAB | | | | + +---------+ + + ROXI HAWKINS (04/16/2014 7:26 AM PST) + + | [...] 11/24/2018 6:38 AM PDT MACKENZIE GIL ABDOMEN 1 VIEW04/16/2014 | | 7:26 [...] | | | | | performed at [facility] | | | | | | [facility];[place], [place] | | | | | | [address] | | | | + + + [...] + +---------+ + + External Lab: CBC (04/16/2014 3:15 AM PST) + + + + + + | Component | Value | Ref Range | Performed | Pathologist | | | | | At | Signature | + + + + + + | WBC | 20.0 (H)Comment: Testing | 3.8 - 11.0 K/uL | EXTERNAL | | | | performed at [facility];[address] | | LAB | | | | [address];[place] | | | | | | [address] | | | | + + + + + + | RED CELL | 4.48Comment: Testing | 3.70 - 5.10 | EXTERNAL | | | COUNT | performed at [facility];888 | M/uL | LAB | | | | [address];[place] | | | | | | [address] | | | | + + + + + + | Hgb | 10.5 (L)Comment: Testing | 11.3 - 15.5 | EXTERNAL | | | | performed at [facility];888 | g/dL | LAB | | | | [address];[place] | | | | | | [address] | | | | + + + + + + | Hematocrit, | 36.0Comment: Testing | 34.0 - 46.0 % | EXTERNAL | | | POC | performed at [facility];[address] | | LAB | | | | [address];[place] | | | | | | [address] | | | | + + + + + + | MCV | 80.5Comment: Testing | 80.0 - 100.0 fl | EXTERNAL | | | | performed at [facility];[address] | | LAB | | | | [address];[place] | | | | | | [address] | | | | + + + + + + | MCH | 23.5 (L)Comment: Testing | 27.0 - 34.0 pg | EXTERNAL | | | | performed at [facility];[address] | | LAB | | | | [address];[place] | | | | | | [address] | | | | + + + + + + | MCHC | 29.1 (L)Comment: Testing | 32.0 - 35.5 | EXTERNAL | | | | performed at [facility];888 | g/dL | LAB | | | | [address];[place] | | | | | | [address] | | | | + + + + + + | RDW-CV | 61.3 (H)Comment: Testing | 37 - 53 fl | EXTERNAL | | | | performed at [facility];888 | | LAB | | | | [address];[place] | | | | | | [address] | | | | + + + + + + | Platelet | 378Comment: Testing | 150 - 400 K/uL | EXTERNAL | | | Count | performed at [facility];[address] | | LAB | | | Plasma | [address];[place] | | | | | | [address] | | | | + + + + + + | MPV | 9.5Comment: Testing | fl | EXTERNAL | | | | performed at [facility];[address] | | LAB | | | | [address];[place] | | | | | | [address] | | | | + + + + + + | Differentia | MANUALComment: Testing | | EXTERNAL | | | l Type | performed at [facility];[address] | | LAB | | | | [address];[place] | | | | | | [address] | | | | + + + + + + | Nucleated | 2 (H)Comment: Testing | /100WBC | EXTERNAL | | | Red Blood | performed at [facility];[address] | | LAB | | | Cells | [address];[place] | | | | | | [address] | | | | + + + + + + | Segmented | 88Comment: Testing | % | EXTERNAL | | | Neutrophils | performed at [facility];[address] | | LAB | | | Manual | [address];[place] | | | | | | [address] | | | | + + + + + + | % | 1Comment: Testing | % | EXTERNAL | | | Myelocytes | performed at [facility];[address] | | LAB | | | | [address];[place] | | | | | | [address] | | | | + + + + + + | Lymphocytes | 6Comment: Testing | % | EXTERNAL | | | Manual | performed at [facility];888 | | LAB | | | | [address];[place] | | | | | | [address] | | | | + + + + + + | Monocytes | 5Comment: Testing | % | EXTERNAL | | | Manual | performed at [facility];888 | | LAB | | | | [address];[place] | | | | | | [address] | | | | + + + + + + | Absolute | 17.6 (H)Comment: Testing | 1.9 - 7.4 K/uL | EXTERNAL | | | Neutrophils | performed at [facility];888 | | LAB | | | | [address];[place] | | | | | | [address] | | | | + + + + + + | Absolute | 0.2 (H)Comment: Testing | K/uL | EXTERNAL | | | Myelocytes | performed at [facility];[address] | | LAB | | | | [address];[place] | | | | | | [address] | | | | + + + + + + | Absolute | 1.2Comment: Testing | 1.0 - 3.9 K/uL | EXTERNAL | | | Lymphocytes | performed at [facility];[address] | | LAB | | | | [address];[place] | | | | | | [address] | | | | + + + + + + | Absolute | 1.0 (H)Comment: Testing | 0 - 0.8 K/uL | EXTERNAL | | | Monocytes | performed at [facility];[address] | | LAB | | | | [address];[place] | | | | | | [address] | | | | + + + + + + | RBC | 1+Comment: | | EXTERNAL | | | Morphology | HYPO2+ANISO1+TARGET1+POI | | LAB | | | | K1+GIANT | | | | | | PLATELETSTesting | | | | | | performed at [facility];[address] | | | | | | [address];[place] | | | | | | [address] | | | | | |1+ | | | | | |POIK | | | | | |1+ | | | | | |GIANT PLATELETS | | | | | |Testing performed at [facility];[address];[place] [address] | | | | | | | [...] | | | | | [place] [address] | | | | + + + [...] | | LAB | | | | [facility];[address] | | | | | | [facility];[place] [address] | | | | + + + [...] EXTERNAL | | | | performed at [facility], [address] | | LAB | | | | [address], | | | | | | [place] [address] | | | | + + + [...] | | | | | [place] [address] | | | | + + + + + + | K | 4.4Comment: Testing | 3.5 - 4.9 | EXTERNAL | | | | performed at [facility], [address] | mmol/L | LAB | | | | [address], | | | | | | [place] [address] | | | | + + + + + + | Cl | 106Comment: Testing | 99 - 109 mmol/L | EXTERNAL | | | | performed at [facility], [address] | | LAB | | | | [address], | | | | | | [place] [address] | | | | + + + + + + | CO2 | 32Comment: Testing | 23 - 32 mmol/L | EXTERNAL | | | | performed at [facility], [address] | | LAB | | | | [address], | | | | | | [place] [address] | | | | + + + + + + | Anion Gap | 12Comment: Testing | 5 - 20 mmol/L | EXTERNAL | | | | performed at [facility], [address] | | LAB | | | | [address], | | | | | | [place] [address] | | | | + + + + + + | Glucose, | 212 (H)Comment: Testing | 65 - 99 mg/dL | EXTERNAL | | | Fasting | performed at [facility], [address] | | LAB | | | | [address], | | | | | | [place] [address] | | | | + + + + + + | BUN | 20Comment: Testing | 8 - 25 mg/dL | EXTERNAL | | | | performed at [facility], [address] | | LAB | | | | [address], | | | | | | [place] [address] | | | | + + + + + + | Creatinine | 0.86Comment: Testing | 0.50 - 1.00 | EXTERNAL | | | | performed at [facility], [address] | mg/dL | LAB | | | | [address], | | | | | | [place] [address] | | | | + + + + + + | BUN/Creatin | 23Comment: Testing | | EXTERNAL | | | ine Ratio | performed at [facility], [address] | | LAB | | | | [address], | | | | | | [place] [address] | | | | + + + + + + | Calcium | 8.2 (L)Comment: Testing | 8.5 - 10.2 | EXTERNAL | | | | performed at [facility], [address] | mg/dL | LAB | | | | [address], | | | | | | [place] [address] | | | | + + + [...] | | | | | [place] [address] | | | | + + + [...] EXTERNAL | | | | performed at [facility];888 | mmol/L | LAB | | | | [address];[place], [place] | | | | | | [address] | | | | + + + [...] LAB | | | | performed at [facility] | | | | | | [address];[place], [place] | | | | | | [address] | | | | + + + [...] EXTERNAL | | | | performed at [facility];888 | mmol/L | LAB | | | | [address];[place], [place] | | | | | | [address] | | | | + + + [...] EXTERNAL | | | | performed at [facility];8 | | LAB | | | | [address];[place] | | | | | | [address] | | | | + + + [...] + | MACKENZIE DIANE CHEST 1 VIEW 04/15/2014 6:18 AM HISTORY: [...] EXTERNAL | | | | performed at [facility];888 | mmol/L | LAB | | | | [address];[place], [place] | | | | | | [address] | | | | + + + [...] EXTERNAL | | | | performed at [facility] | | LAB | | | | [address];[place] | | | | | | [address] | | | | + + + [...] | | | | | | ACUTE [place] Testing | | | | | | performed at [facility];888 | | | | | | [address];[place], [place] | | | | | | [address] | | | | + + + [...] | | | | | performed at [facility];88 | | | | | | [facility];[place], [place] | | | | | | [address] | | | | + + + [...] + +---------+ + + External Lab: RAPHAEL (04/15/2014 4:22 AM PST) + + + + + + | Component | Value | Ref Range | Performed | Pathologist | | | | | At | Signature | + + + + + + | WBC | 22.8 (H)Comment: Testing | 3.8 - 11.0 K/uL | EXTERNAL | | | | performed at [facility];888 | | LAB | | | | [address];[place] | | | | | | [address] | | | | + + + + + + | RED CELL | 4.49Comment: Testing | 3.70 - 5.10 | EXTERNAL | | | COUNT | performed at [facility];888 | M/uL | LAB | | | | [address];[place] | | | | | | [address] | | | | + + + + + + | Hgb | 10.6 (L)Comment: Testing | 11.3 - 15.5 | EXTERNAL | | | | performed at [facility];888 | g/dL | LAB | | | | [address];[place] | | | | | | [address] | | | | + + + + + + | Hematocrit, | 36.1Comment: Testing | 34.0 - 46.0 % | EXTERNAL | | | POC | performed at [facility];888 | | LAB | | | | [address];[place] | | | | | | [address] | | | | + + + + + + | MCV | 80.2Comment: Testing | 80.0 - 100.0 fl | EXTERNAL | | | | performed at [facility];888 | | LAB | | | | [address];[place] | | | | | | [address] | | | | + + + + + + | MCH | 23.5 (L)Comment: Testing | 27.0 - 34.0 pg | EXTERNAL | | | | performed at [facility];888 | | LAB | | | | [address];[place] | | | | | | [address] | | | | + + + + + + | MCHC | 29.3 (L)Comment: Testing | 32.0 - 35.5 | EXTERNAL | | | | performed at [facility];888 | g/dL | LAB | | | | [address];[place] | | | | | | [address] | | | | + + + + + + | RDW-CV | 60.8 (H)Comment: Testing | 37 - 53 fl | EXTERNAL | | | | performed at [facility];[address] | | LAB | | | | [address];[place] | | | | | | [address] | | | | + + + + + + | Platelet | 382Comment: Testing | 150 - 400 K/uL | EXTERNAL | | | Count | performed at [facility];[address] | | LAB | | | Plasma | [address];[place] | | | | | | [address] | | | | + + + + + + | MPV | 9.1Comment: Testing | fl | EXTERNAL | | | | performed at [facility];[address] | | LAB | | | | [address];[place] | | | | | | [address] | | | | + + + + + + | Differentia | MANUALComment: Testing | | EXTERNAL | | | l Type | performed at [facility];[address] | | LAB | | | | [address];[place] | | | | | | [address] | | | | + + + + + + | Nucleated | 2 (H)Comment: Testing | /100WBC | EXTERNAL | | | Red Blood | performed at [facility];[address] | | LAB | | | Cells | [address];[place] | | | | | | [address] | | | | + + + + + + | Segmented | 90Comment: Testing | % | EXTERNAL | | | Neutrophils | performed at [facility];[address] | | LAB | | | Manual | [address];[place] | | | | | | [address] | | | | + + + + + + | % Bands | 2Comment: Testing | % | EXTERNAL | | | | performed at [facility];[address] | | LAB | | | | [address];[place] | | | | | | [address] | | | | + + + + + + | Lymphocytes | 8Comment: Testing | % | EXTERNAL | | | Manual | performed at [facility];888 | | LAB | | | | [address];[place] | | | | | | [address] | | | | + + + + + + | Absolute | 20.5 (H)Comment: Testing | 1.9 - 7.4 K/uL | EXTERNAL | | | Neutrophils | performed at [facility];888 | | LAB | | | | [address];[place] | | | | | | [address] | | | | + + + + + + | Bands | 0.5 (H)Comment: Testing | 0 - 0.2 K/uL | EXTERNAL | | | Manual | performed at [facility];888 | | LAB | | | | [address];[place] | | | | | | [address] | | | | + + + + + + | Absolute | 1.8Comment: Testing | 1.0 - 3.9 K/uL | EXTERNAL | | | Lymphocytes | performed at [facility];888 | | LAB | | | | [address];[place] | | | | | | [address] | | | | + + + + + + | Platelet | ADEQUATEComment: Testing | | EXTERNAL | | | Estimate | performed at [facility];[address] | | LAB | | | | [facility];[place] | | | | | | [address] | | | | + + + + + + | RBC | 2+Comment: | | EXTERNAL | | | Morphology | ANISO1+HYPO1+ELLIPTO1+PO | | LAB | | | | IK2+TARGETNORMAL PLT | | | | | | MORPHTesting performed | | | | | | at [facility];[address] | | | | | | [address];[place] [address] | | | | | |ELLIPTO | | | | | |1+ | | | | | |POIK | | | | | |2+ | | | | | |TARGET | | | | | |NORMAL PLT MORPH | | | | | |Testing performed at [facility];[address] [facility];[place] [address] | | | | | | | [...] EXTERNAL | | | | performed at [facility];[address] | | LAB | | | | [address];[place], [place] | | | | | | [address] | | | | + + + [...] | | LAB | | | | [facility];[address] [place] [address] | | | | | | [facility];[place] [address] | | | | + + [...] EXTERNAL | | | | performed at [facility];[address] | | LAB | | | | [address];[place], [place] | | | | | | [address] [...] EXTERNAL | | | | performed at [facility];888 | | LAB | | | | [address];[place] | | | | | | [address] | | | | + + + [...] | | | | | performed at [facility] | | | | | | [facility];[place], [place] | | | | | | [address] | | | | + + + [...] EXTERNAL | | | | performed at [facility];[address] | mmol/L | LAB | | | | [address];[place] | | | | | | [address] | | | | + + + + + + | K | 3.7Comment: Testing | 3.5 - 4.9 | EXTERNAL | | | | performed at [facility];[address] | mmol/L | LAB | | | | [address];[place] | | | | | | [address] | | | | + + + + + + | Cl | 109Comment: Testing | 99 - 109 mmol/L | EXTERNAL | | | | performed at [facility];[address] | | LAB | | | | [address];[place] | | | | | | [address] | | | | + + + + + + | CO2 | 28Comment: Testing | 23 - 32 mmol/L | EXTERNAL | | | | performed at [facility];[address] | | LAB | | | | [address];[place] | | | | | | [address] | | | | + + + + + + | Anion Gap | 14Comment: Testing | 5 - 20 mmol/L | EXTERNAL | | | | performed at [facility];[address] | | LAB | | | | [address];[place] | | | | | | [address] | | | | + + + + + + | Glucose, | 99Comment: Testing | 65 - 99 mg/dL | EXTERNAL | | | Fasting | performed at [facility];[address] | | LAB | | | | [address];[place] | | | | | | [address] | | | | + + + + + + | BUN | 22Comment: Testing | 8 - 25 mg/dL | EXTERNAL | | | | performed at [facility];[address] | | LAB | | | | [address];[place] | | | | | | [address] | | | | + + + + + + | Creatinine | 0.98Comment: Testing | 0.50 - 1.00 | EXTERNAL | | | | performed at [facility];[address] | mg/dL | LAB | | | | [address];[place] | | | | | | [address] | | | | + + + + + + | BUN/Creatin | 23Comment: Testing | | EXTERNAL | | | ine Ratio | performed at [facility];[address] | | LAB | | | | [address];[place] | | | | | | [address] | | | | + + + + + + | Calcium | 8.4 (L)Comment: Testing | 8.5 - 10.2 | EXTERNAL | | | | performed at [facility];[address] | mg/dL | LAB | | | | [address];[place] | | | | | | [address] | | | | + + + [...] | | | | | | at [facility];[address] | | | | | [address];[place] [address] | | | | + + + [...] | | | | | | ON [id number] AT 1844, | | | | | | VAPTesting performed at | | | | | | [facility];[address] | | | | | [facility];[place] [address] | | | | + + + [...] EXTERNAL | | | | performed at [facility];[address] | mmol/L | LAB | | | | [address];[place], [place] | | | | | | [address] | | | | + + + [...] EXTERNAL | | | | performed at [facility];[address] | | LAB | | | | [address];[place] | | | | | | [address] | | | | + + + [...] EXTERNAL | | | | performed at [facility];[address] | | LAB | | | | [address];[place], [place] | | | | | | [address] | | | | + + + [...] | EXTERNAL LAB | | performed at [facility];[address] [facility];[place] [address] 027 NAP1 BI | | | 027 NAP1 BI PRESUMPTIVE NEGATIVE | | | Detection of 027 NAP1 BI strains of C. difficile is presumptive and | | | for epidemiological purposes and not intended to guide or monitor | | | treatment for C. difficile infections. Testing performed at [facility];[address] | | | [facility];[place] [address] | | + + + + +---------+ [...] | | | | | performed at [facility];[address] | | | | | | [facility];[place], [place] | | | | | | [address] | | | | + + + [...] + +---------+ + + External Lab: RAPHAEL (04/14/2014 4:22 AM PST) + + + [...] | | | | | [place] [address] | | | | + + + + + + | RED CELL | 4.43Comment: Testing | 3.70 - 5.10 | EXTERNAL | | | COUNT | performed at [facility], [address] | M/uL | LAB | | | | [address], | | | | | | [place] [address] | | | | + + + + + + | Hgb | 10.8 (L)Comment: Testing | 11.3 - 15.5 | EXTERNAL | | | | performed at [facility], [address] | g/dL | LAB | | | | [address], | | | | | | [place] [address] | | | | + + + + + + | Hematocrit, | 36.2Comment: Testing | 34.0 - 46.0 % | EXTERNAL | | | POC | performed at [facility], [address] | | LAB | | | | [address], | | | | | | [place] [address] | | | | + + + + + + | MCV | 81.7Comment: Testing | 80.0 - 100.0 fl | EXTERNAL | | | | performed at [facility], [address] | | LAB | | | | [address], | | | | | | [place] [address] | | | | + + + + + + | MCH | 24.5 (L)Comment: Testing | 27.0 - 34.0 pg | EXTERNAL | | | | performed at [facility], [address] | | LAB | | | | [address], | | | | | | [place] [address] | | | | + + + + + + | MCHC | 29.9 (L)Comment: Testing | 32.0 - 35.5 | EXTERNAL | | | | performed at [facility], [address] | g/dL | LAB | | | | [address], | | | | | | [place] [address] | | | | + + + + + + | RDW-CV | 63.0 (H)Comment: Testing | 37 - 53 fl | EXTERNAL | | | | performed at [facility], [address] | | LAB | | | | [address], | | | | | | [place] [address] | | | | + + + + + + | Platelet | 325Comment: Testing | 150 - 400 K/uL | EXTERNAL | | | Count | performed at [facility], [address] | | LAB | | | Plasma | [address], | | | | | | [place], [place] [address] | | | | + + + + + + | MPV | 9.5Comment: Testing | fl | EXTERNAL | | | | performed at [facility], [address] | | LAB | | | | [address], | | | | | | [place] [address] | | | | + + + + + + | Differentia | MANUALComment: Testing | | EXTERNAL | | | l Type | performed at [facility], [address] | | LAB | | | | [address], | | | | | | [place] [address] | | | | + + + + + + | Segmented | 86Comment: Testing | % | EXTERNAL | | | Neutrophils | performed at [facility], [address] | | LAB | | | Manual | [address], | | | | | | [place] [address] | | | | + + + + + + | % Bands | 2Comment: Testing | % | EXTERNAL | | | | performed at [facility], [address] | | LAB | | | | [address], | | | | | | [place] [address] | | | | + + + + + + | Lymphocytes | 5Comment: Testing | % | EXTERNAL | | | Manual | performed at [facility], [address] | | LAB | | | | [address], | | | | | | [place] [address] | | | | + + + + + + | Monocytes | 7Comment: Testing | % | EXTERNAL | | | Manual | performed at [facility], [address] | | LAB | | | | [address], | | | | | | [place] [address] | | | | + + + + + + | Absolute | 17.3 (H)Comment: Testing | 1.9 - 7.4 K/uL | EXTERNAL | | | Neutrophils | performed at [facility], [address] | | LAB | | | | [address], | | | | | | [place] [address] | | | | + + + + + + | Bands | 0.4 (H)Comment: Testing | 0 - 0.2 K/uL | EXTERNAL | | | Manual | performed at [facility], [address] | | LAB | | | | [address], | | | | | | [place] [address] | | | | + + + + + + | Absolute | 1.0Comment: Testing | 1.0 - 3.9 K/uL | EXTERNAL | | | Lymphocytes | performed at [facility], [address] | | LAB | | | | [address], | | | | | | [place] [address] | | | | + + + + + + | Absolute | 1.4 (H)Comment: Testing | 0 - 0.8 K/uL | EXTERNAL | | | Monocytes | performed at [facility], [address] | | LAB | | | | [facility], | | | | | | [place] [address] | | | | + + + + + + | RBC | NORMAL RBC MORPHComment: | | EXTERNAL | | | Morphology | NORMAL PLT MORPHTesting | | LAB | | | | performed at [facility], [address] | | | | | | [address], | | | | | | [place] [address] | | | | + + + [...] EXTERNAL | | | | performed at [facility];[address] | | LAB | | | | [address];[place], [place] | | | | | | [address] | | | | + + + [...] EXTERNAL | | | | performed at [facility];[address] | | LAB | | | | [address];[place] | | | | | | [address] | | | | + + + [...] EXTERNAL | | | | performed at [facility];[address] | mmol/L | LAB | | | | [address];[place] | | | | | | [address] | | | | + + + + + + | K | 3.6Comment: Testing | 3.5 - 4.9 | EXTERNAL | | | | performed at [facility];[address] | mmol/L | LAB | | | | [address];[place] | | | | | | [address] | | | | + + + + + + | Cl | 109Comment: Testing | 99 - 109 mmol/L | EXTERNAL | | | | performed at [facility];[address] | | LAB | | | | [address];[place] | | | | | | [address] | | | | + + + + + + | CO2 | 31Comment: Testing | 23 - 32 mmol/L | EXTERNAL | | | | performed at [facility];[address] | | LAB | | | | [address];[place] | | | | | | [address] | | | | + + + + + + | Anion Gap | 11Comment: Testing | 5 - 20 mmol/L | EXTERNAL | | | | performed at [facility];[address] | | LAB | | | | [address];[place] | | | | | | [address] | | | | + + + + + + | Glucose, | 85Comment: Testing | 65 - 99 mg/dL | EXTERNAL | | | Fasting | performed at [facility];[address] | | LAB | | | | [address];[place] | | | | | | [address] | | | | + + + + + + | BUN | 18Comment: Testing | 8 - 25 mg/dL | EXTERNAL | | | | performed at [facility];[address] | | LAB | | | | [address];[place] | | | | | | [address] | | | | + + + + + + | Creatinine | 0.89Comment: Testing | 0.50 - 1.00 | EXTERNAL | | | | performed at [facility];[address] | mg/dL | LAB | | | | [address];[place] | | | | | | [address] | | | | + + + + + + | BUN/Creatin | 20Comment: Testing | | EXTERNAL | | | ine Ratio | performed at [facility];[address] | | LAB | | | | [address];[place] | | | | | | [address] | | | | + + + + + + | Calcium | 8.0 (L)Comment: Testing | 8.5 - 10.2 | EXTERNAL | | | | performed at [facility];888 | mg/dL | LAB | | | | [address] [...] | | | | | | at [facility];[address] [place] [address] | | | | | | [facility];[place] [address] | | | | + + + [...] EXTERNAL | | | | performed at [facility];[address] | mmol/L | LAB | | | | [address] [facility];[place], [place] | | | | | | [address] | | | | + + + [...] EXTERNAL | | | | performed at [facility] | | LAB | | | | [address];[place], [place] | | | | | | [address] | | | | + + + [...] EXTERNAL | | | | performed at [facility];[address] | | LAB | | | | [address];[place], [place] | | | | | | [address] | | | | + + [...] | EXTERNAL LAB | | performed at [facility];[address] [place] [address];[place] [address] Pneumocystis Smear, | | | A ACCESSION NO. | | | [id number] SPECIMEN SOURCE SPUTUM | | | RESULT NO PNEUMOCYSTIS SEEN | | | BY DIRECT | | | FLUORESCENT ANTIBODY STAIN Testing performed at [facility] | | | [place], [facility] [address] [place] [id number] PNEMOCYSTIS FA,STATUS | | | REPORT STATUS FINAL 04/15/2014 | | | Testing performed at [facility], [address] [place] [address] | | | [place] [address] | | + + + + +---------+ [...] LAB | | | | performed at [facility];[address] | | | | | | [address];[place] | | | | | | [address] | | | | + + + [...] EXTERNAL | | | | performed at [facility];[address] | | LAB | | | | [address];[place], [place] | | | | | | [address] | | | | + + + [...] LAB | | | | performed at [facility];[address] | | | | | | [address];[place], [place] | | | | | | [address] | | | | + + + [...] | | | | | performed at [facility];[address] | | | | | | [address] [facility];[place], [place] | | | | | | [address] | | | | + + + [...] +---------+ + + XR Chest 1 Anders (04/13/2014 7:10 AM PST) + + | [...] EXTERNAL | | | | performed at [facility] | | LAB | | | | [address];[place] | | | | | | [address] | | | | + + + + + + | RED CELL | 4.14Comment: Testing | 3.70 - 5.10 | EXTERNAL | | | COUNT | performed at [facility];[address] | M/uL | LAB | | | | [address];[place] | | | | | | [address] | | | | + + + + + + | Hgb | 10.0 (L)Comment: Testing | 11.3 - 15.5 | EXTERNAL | | | | performed at [facility];888 | g/dL | LAB | | | | [address];[place] | | | | | | [address] | | | | + + + + + + | Hematocrit, | 32.7 (L)Comment: Testing | 34.0 - 46.0 % | EXTERNAL | | | POC | performed at [facility];[address] | | LAB | | | | [address];[place] | | | | | | [address] | | | | + + + + + + | MCV | 79.1 (L)Comment: Testing | 80.0 - 100.0 fl | EXTERNAL | | | | performed at [facility];[address] | | LAB | | | | [address];[place] | | | | | | [address] | | | | + + + + + + | MCH | 24.3 (L)Comment: Testing | 27.0 - 34.0 pg | EXTERNAL | | | | performed at [facility];[address] | | LAB | | | | [address];[place] | | | | | | [address] | | | | + + + + + + | MCHC | 30.7 (L)Comment: Testing | 32.0 - 35.5 | EXTERNAL | | | | performed at [facility];888 | g/dL | LAB | | | | [address];[place] | | | | | | [address] | | | | + + + + + + | RDW-CV | 60.8 (H)Comment: Testing | 37 - 53 fl | EXTERNAL | | | | performed at [facility];[address] | | LAB | | | | [address];[place] | | | | | | [address] | | | | + + + + + + | Platelet | 281Comment: Testing | 150 - 400 K/uL | EXTERNAL | | | Count | performed at [facility];[address] | | LAB | | | Plasma | [address];[place] | | | | | | [address] | | | | + + + + + + | MPV | 9.1Comment: Testing | fl | EXTERNAL | | | | performed at [facility];[address] | | LAB | | | | [address];[place] | | | | | | [address] | | | | + + + + + + | Differentia | MANUALComment: Testing | | EXTERNAL | | | l Type | performed at [facility];[address] | | LAB | | | | [address];[place] | | | | | | [address] | | | | + + + + + + | Nucleated | 1 (H)Comment: Testing | /100WBC | EXTERNAL | | | Red Blood | performed at [facility];[address] | | LAB | | | Cells | [address];[place] | | | | | | [address] | | | | + + + + + + | Segmented | 91Comment: Testing | % | EXTERNAL | | | Neutrophils | performed at [facility];[address] | | LAB | | | Manual | [address];[place] | | | | | | [address] | | | | + + + + + + | Lymphocytes | 6Comment: Testing | % | EXTERNAL | | | Manual | performed at [facility];[address] | | LAB | | | | [address];[place] | | | | | | [address] | | | | + + + + + + | Monocytes | 3Comment: Testing | % | EXTERNAL | | | Manual | performed at [facility];[address] | | LAB | | | | [address];[place] | | | | | | [address] | | | | + + + + + + | Absolute | 19.1 (H)Comment: Testing | 1.9 - 7.4 K/uL | EXTERNAL | | | Neutrophils | performed at [facility];[address] | | LAB | | | | [address];[place] | | | | | | [address] | | | | + + + + + + | Absolute | 1.3Comment: Testing | 1.0 - 3.9 K/uL | EXTERNAL | | | Lymphocytes | performed at [facility];[address] | | LAB | | | | [address];[place] | | | | | | [address] | | | | + + + + + + | Absolute | 0.6Comment: Testing | 0 - 0.8 K/uL | EXTERNAL | | | Monocytes | performed at [facility];[address] | | LAB | | | | [address];[place] | | | | | | [address] | | | | + + + + + + | Platelet | ADEQUATEComment: Testing | | EXTERNAL | | | Estimate | performed at [facility] | | LAB | | | | [facility];[place] | | | | | | [address] | | | | + + + + + + | RBC | 3+Comment: | | EXTERNAL | | | Morphology | ANISO1+MACRO1+MICRO1+HYP | | LAB | | | | O1+POLY2+TARGET1+ACANTHO | | | | | | Testing performed at | | | | | | [facility];[address] [place] [address] | | | | | | [address] [address] | | | | | |MICRO | | | | | |1+ | | | | | |HYPO | | | | | |1+ | | | | | |POLY | | | | | |2+ | | | | | |TARGET | | | | | |1+ | | | | | |ACANTHO | | | | | |Testing performed at [facility];[address] [place] [address];[place] [address] | | | | | | | [...] EXTERNAL | | | | performed at [facility];[address] | | LAB | | | | [address];[place], [place] | | | | | | [address] | | | | + + + [...] | | | | | | at [facility];[address] [place] [address] | | | | | | [facility];[place] [address] | | | | + + + [...] EXTERNAL | | | | performed at [facility];[address] | mmol/L | LAB | | | | [address];[place] | | | | | | [address] | | | | + + + + + + | K | 5.4 (H)Comment: SLT | 3.5 - 4.9 | EXTERNAL | | | | HEMOLYSISTesting | mmol/L | LAB | | | | performed at [facility];[address] | | | | | | [address];[place] | | | | | | [address] | | | | + + + + + + | Cl | 107Comment: Testing | 99 - 109 mmol/L | EXTERNAL | | | | performed at [facility];[address] | | LAB | | | | [address];[place] | | | | | | [address] | | | | + + + + + + | CO2 | 24Comment: Testing | 23 - 32 mmol/L | EXTERNAL | | | | performed at [facility];[address] | | LAB | | | | [address];[place] | | | | | | [address] | | | | + + + + + + | Anion Gap | 15Comment: Testing | 5 - 20 mmol/L | EXTERNAL | | | | performed at [facility];[address] | | LAB | | | | [address];[place] | | | | | | [address] | | | | + + + + + + | Glucose, | 94Comment: Testing | 65 - 99 mg/dL | EXTERNAL | | | Fasting | performed at [facility];[address] | | LAB | | | | [address];[place] | | | | | | [address] | | | | + + + + + + | BUN | 14Comment: Testing | 8 - 25 mg/dL | EXTERNAL | | | | performed at [facility];[address] | | LAB | | | | [address];[place] | | | | | | [address] | | | | + + + + + + | Creatinine | 0.72Comment: Testing | 0.50 - 1.00 | EXTERNAL | | | | performed at [facility];888 | mg/dL | LAB | | | | [address];[place] | | | | | | [address] | | | | + + + + + + | BUN/Creatin | 19Comment: Testing | | EXTERNAL | | | ine Ratio | performed at [facility];[address] | | LAB | | | | [address];[place] | | | | | | [address] | | | | + + + + + + | Calcium | 7.3 (L)Comment: Testing | 8.5 - 10.2 | EXTERNAL | | | | performed at [facility];[address] | mg/dL | LAB | | | | [address];[place], [place] | | | | | | [address] | | | | + + + [...] | | | | | | at [facility];[address];[place] [address] | | | | + + + [...] HAND | | | Testing performed at [facility];[address] | | | [facility];[place] [address] CULTURE | | | NO GROWTH | | | Testing performed at [facility], [address] [facility], [place], [place] | | | [address] | | + + + + +---------+ [...] at | | | | | | [facility];[address] [place] [address] | | | | | | [facility];[place] [address] | | | | + + + + + + + + | Specimen | + + | | + + + +---------+ + + | Performing | Address | City/State/Zipcode | Phone Number | | Organization | | | | + +---------+ + + | EXTERNAL LAB | | | | + +---------+ + + Protime SANDRA (04/12/2014 5:31 PM PST) + + + [...] | | | | | performed at [facility];[address] | | | | | | [facility];[place], [place] | | | | | | [address] | | | | + + + [...] EXTERNAL | | | | performed at [facility];[address] | | LAB | | | | [address];[place], [place] | | | | | | [address] | | | | + + + + + + | RED CELL | 4.24Comment: Testing | 3.70 - 5.10 | EXTERNAL | | | COUNT | performed at [facility];888 | M/uL | LAB | | | | [address];[place] | | | | | | [address] | | | | + + + + + + | Hgb | 10.3 (L)Comment: Testing | 11.3 - 15.5 | EXTERNAL | | | | performed at [facility];888 | g/dL | LAB | | | | [address];[place] | | | | | | [address] | | | | + + + + + + | Hematocrit, | 33.3 (L)Comment: Testing | 34.0 - 46.0 % | EXTERNAL | | | POC | performed at [facility];[address] | | LAB | | | | [address];[place] | | | | | | [address] | | | | + + + + + + | MCV | 78.6 (L)Comment: Testing | 80.0 - 100.0 fl | EXTERNAL | | | | performed at [facility];[address] | | LAB | | | | [address];[place] | | | | | | [address] | | | | + + + + + + | MCH | 24.2 (L)Comment: Testing | 27.0 - 34.0 pg | EXTERNAL | | | | performed at [facility];[address] | | LAB | | | | [address];[place] | | | | | | [address] | | | | + + + + + + | MCHC | 30.8 (L)Comment: Testing | 32.0 - 35.5 | EXTERNAL | | | | performed at [facility];888 | g/dL | LAB | | | | [address];[place] | | | | | | [address] | | | | + + + + + + | RDW-CV | 61.7 (H)Comment: Testing | 37 - 53 fl | EXTERNAL | | | | performed at [facility];[address] | | LAB | | | | [address];[place] | | | | | | [address] | | | | + + + + + + | Platelet | 283Comment: Testing | 150 - 400 K/uL | EXTERNAL | | | Count | performed at [facility];[address] | | LAB | | | Plasma | [address];[place] | | | | | | [address] | | | | + + + + + + | MPV | 9.0Comment: Testing | fl | EXTERNAL | | | | performed at [facility];[address] | | LAB | | | | [address];[place] | | | | | | [address] | | | | + + + + + + | Differentia | MANUALComment: Testing | | EXTERNAL | | | l Type | performed at [facility];[address] | | LAB | | | | [address];[place] | | | | | | [address] | | | | + + + + + + | Nucleated | 3 (H)Comment: Testing | /100WBC | EXTERNAL | | | Red Blood | performed at [facility];[address] | | LAB | | | Cells | [address];[place] | | | | | | [address] | | | | + + + + + + | Segmented | 91Comment: Testing | % | EXTERNAL | | | Neutrophils | performed at [facility];[address] | | LAB | | | Manual | [address];[place] | | | | | | [address] | | | | + + + + + + | % Bands | 2Comment: Testing | % | EXTERNAL | | | | performed at [facility];[address] | | LAB | | | | [address];[place] | | | | | | [address] | | | | + + + + + + | Lymphocytes | 2Comment: Testing | % | EXTERNAL | | | Manual | performed at [facility];[address] | | LAB | | | | [address];[place] | | | | | | [address] | | | | + + + + + + | % Atypical | 2Comment: Testing | % | EXTERNAL | | | Lymphocytes | performed at [facility];[address] | | LAB | | | | [address];[place] | | | | | | [address] | | | | + + + + + + | Monocytes | 3Comment: Testing | % | EXTERNAL | | | Manual | performed at [facility];[address] | | LAB | | | | [address];[place] | | | | | | [address] | | | | + + + + + + | Absolute | 16.9 (H)Comment: Testing | 1.9 - 7.4 K/uL | EXTERNAL | | | Neutrophils | performed at [facility];[address] | | LAB | | | | [address];[place] | | | | | | [address] | | | | + + + + + + | Bands | 0.4 (H)Comment: Testing | 0 - 0.2 K/uL | EXTERNAL | | | Manual | performed at [facility];[address] | | LAB | | | | [address];[place] | | | | | | [address] | | | | + + + + + + | Absolute | 0.4 (L)Comment: Testing | 1.0 - 3.9 K/uL | EXTERNAL | | | Lymphocytes | performed at [facility];[address] | | LAB | | | | [address];[place] | | | | | | [address] | | | | + + + + + + | Absolute | 0.4 (H)Comment: Testing | K/uL | EXTERNAL | | | Atypical | performed at [facility];[address] | | LAB | | | Lymphocytes | [address];[place] | | | | | | [address] | | | | + + + + + + | Absolute | 0.6Comment: Testing | 0 - 0.8 K/uL | EXTERNAL | | | Monocytes | performed at [facility];[address] | | LAB | | | | [address];[place] | | | | | | [address] | | | | + + + + + + | Platelet | ADEQUATEComment: Testing | | EXTERNAL | | | Estimate | performed at [facility];[address] | | LAB | | | | [address];[place] | | | | | | [address] | | | | + + + + + + | RBC | 1+Comment: | | EXTERNAL | | | Morphology | ANISO1+POIK2+HYPO1+TARGE | | LAB | | | | TNORMAL PLT MORPHTesting | | | | | | performed at [facility];[address] | | | | | | [facility];[place], [place] | | | | | | [address] | | | | | |HYPO | | | | | |1+ | | | | | |TARGET | | | | | |NORMAL PLT MORPH | | | | | |Testing performed at [facility];[address] [facility];[place] [address] | | | | | | | [...] EXTERNAL | | | | performed at [facility];888 | mmol/L | LAB | | | | [address];[place] | | | | | | [address] | | | | + + + + + + | K | 4.1Comment: SPECIMEN | 3.5 - 4.9 | EXTERNAL | | | | SLIGHTLY | mmol/L | LAB | | | | HEMOLYZEDTesting | | | | | | performed at [facility];[address] | | | | | | [address];[place] | | | | | | [address] | | | | + + + + + + | Cl | 105Comment: Testing | 99 - 109 mmol/L | EXTERNAL | | | | performed at [facility] [place] | | LAB | | | | [address];[place] | | | | | | [address] | | | | + + + + + + | CO2 | 24Comment: Testing | 23 - 32 mmol/L | EXTERNAL | | | | performed at [facility] [place];[address] | | LAB | | | | [address];[place] | | | | | | [address] | | | | + + + + + + | Anion Gap | 15Comment: Testing | 5 - 20 mmol/L | EXTERNAL | | | | performed at [facility] [place];[address] | | LAB | | | | [address];[place] | | | | | | [address] | | | | + + + + + + | Glucose, | 137 (H)Comment: Testing | 65 - 99 mg/dL | EXTERNAL | | | Fasting | performed at [facility] [place];[address] | | LAB | | | | [address];[place] | | | | | | [address] | | | | + + + + + + | BUN | 15Comment: Testing | 8 - 25 mg/dL | EXTERNAL | | | | performed at [facility] [place];[address] | | LAB | | | | [address];[place] | | | | | | [address] | | | | + + + + + + | Creatinine | 0.96Comment: Testing | 0.50 - 1.00 | EXTERNAL | | | | performed at [facility] [place];[address] | mg/dL | LAB | | | | [address];[place] | | | | | | [address] | | | | + + + + + + | BUN/Creatin | 15Comment: Testing | | EXTERNAL | | | ine Ratio | performed at [facility] [place];[address] | | LAB | | | | [address];[place] | | | | | | [address] | | | | + + + + + + | Calcium | 7.5 (L)Comment: Testing | 8.5 - 10.2 | EXTERNAL | | | | performed at [facility] [place];[address] | mg/dL | LAB | | | | [address];[place] | | | | | | [address] | | | | + + + + + + | Protein, | 5.2 (L)Comment: Testing | 6.3 - 8.2 g/dL | EXTERNAL | | | Total | performed at [facility] [place];[address] | | LAB | | | | [address];[place] | | | | | | [address] | | | | + + + + + + | Albumin | 1.6 (L)Comment: Testing | 3.6 - 5.0 g/dL | EXTERNAL | | | | performed at [facility] [place];[address] | | LAB | | | | [address];[place] | | | | | | [address] | | | | + + + + + + | Globulin | 3.7Comment: Testing | 1.3 - 4.9 g/dL | EXTERNAL | | | | performed at [facility] [place];[address] | | LAB | | | | [address];[place] | | | | | | [address] | | | | + + + + + + | A/G Ratio | 0.4 (L)Comment: Testing | 1.0 - 2.4 | EXTERNAL | | | | performed at [facility] [place];[address] | | LAB | | | | [address];[place] | | | | | | [address] | | | | + + + + + + | Bilirubin | 0.3Comment: Testing | 0.1 - 1.5 mg/dL | EXTERNAL | | | Total | performed at [facility] [place];[address] | | LAB | | | | [address];[place] | | | | | | [address] | | | | + + + + + + | ALP, | 86Comment: Testing | 35 - 115 U/L | EXTERNAL | | | External | performed at [facility] [place];[address] | | LAB | | | | [address];[place] | | | | | | [address] | | | | + + + + + + | AST | 55 (H)Comment: SPECIMEN | 10 - 45 U/L | EXTERNAL | | | | SLIGHTLY | | LAB | | | | HEMOLYZEDTesting | | | | | | performed at [facility];[address] | | | | | | [address];[place] | | | | | | [address] | | | | + + + + + + | ALT | 18Comment: Testing | 10 - 65 U/L | EXTERNAL | | | | performed at [facility];[address] | | LAB | | | | Clarice Loredo;[place] | | | | | | [address] | | | | + + + [...] | | | | | | at [facility];[address];[place] [address] | | | | + + + [...] RHAND | | | Testing performed at [facility];8 | | | [facility];[place] [address] CULTURE | | | NO GROWTH | | | Testing performed at [facility], [address] [facility], [place], [place] | | | [address] | | + + + + +---------+ [...] Conversion - 11/24/2018 6:38 AM PDT MACKENZIE ODILIA yearsXR CHEST 1 | | VIEW04/12/2014 5:13 [...] EXTERNAL LAB | | Testing performed at [facility];[address] [place] [address];[place] [address] MRSA PCR | | | NEGATIVE Testing performed at | | | [facility];[address] [place] [address];[place] [address] | | + + + + +---------+ [...] EXTERNAL | | | | performed at [facility], [address] | | LAB | | | | [address], | | | | | | [place] [address] | | | | + + + + + + | Clarity | CLEARComment: Testing | | EXTERNAL | | | | performed at [facility], [address] | | LAB | | | | [address], | | | | | | [place] [address] | | | | + + + + + + | Specific | 1.021Comment: Testing | 1.002 - 1.030 | EXTERNAL | | | [place] | performed at [facility], [address] | | LAB | | | | [address], | | | | | | [place] [address] | | | | + + + + + + | Leukocyte | NEGATIVEComment: Testing | | EXTERNAL | | | Esterase, | performed at [facility], [address] | | LAB | | | [address] | [address], | | | | | | [place] [address] | | | | + + + + + + | Nitrite, | NEGATIVEComment: Testing | | EXTERNAL | | | Urine | performed at [facility], [address] | | LAB | | | | [address], | | | | | | [place] [address] | | | | + + + + + + | Urobilinoge | 0.2Comment: Testing | mg/dL | EXTERNAL | | | n, Urine | performed at [facility], [address] | | LAB | | | [address], | | | | | | [place] [address] | | | | + + + + + + | Protein, | NEGATIVEComment: Testing | mg/dL | EXTERNAL | | | Urine | performed at [facility], [address] | | LAB | | | | [address], | | | | | | [place] [address] | | | | + + + + + + | pH, Urine | 6.0Comment: Testing | 5.0 - 8.0 | EXTERNAL | | | | performed at [facility], [address] | | LAB | | | [address], | | | | | | [place] [address] | | | | + + + + + + | Blood, | NEGATIVEComment: Testing | | EXTERNAL | | | Urine | performed at [facility], [address] | | LAB | | | | [address], | | | | | | [place] [address] | | | | + + + + + + | Ketones | NEGATIVEComment: Testing | mg/dL | EXTERNAL | | | | performed at [facility], [address] | | LAB | | | | [address], | | | | | | [place] [address] | | | | + + + + + + | Bilirubin, | NEGATIVEComment: Testing | | EXTERNAL | | | Urine | performed at [facility], [address] | | LAB | | | | [address], | | | | | | [place] [address] | | | | + + + + + + | Glucose, | NEGATIVEComment: Testing | mg/dL | EXTERNAL | | | Urine | performed at [facility], [address] | | LAB | | | | [address], | | | | | | [place] [address] | | | | + + + [...] ALBICANSAbnormal | | | Testing performed at [facility], [address] [place], [place] | | | [address] | | + + + + +---------+ + + | Performing | Address | City/State/Zipcode | Phone Number | | Organization | | | | + +---------+ + + | EXTERNAL LAB | | | | + +---------+ + + XR Chest 1 Vw (04/11/2014 10:33 PM PST) + + | [...] + + | PAF (paroxysmal atrial fibrillation) ([facility]) Atrial fibrillation | + + | Sepsis(995.91) Sepsis | + + | Acute systolic heart failure ([facility]) Acute systolic heart failure | + + | Acute respiratory failure ([facility]) Acute respiratory failure | + + | Aspiration pneumonia ([facility]) Pneumonitis due to inhalation of food or [...]
--- OUTSIDE RECORDS SUMMARY | ~2019-03-09 | XMS | Encounter Summary ---
Demographics + + + | Address | [address] | | | [place] [address] | + + + | Home Phone | | + + + | Preferred Language | Unknown | + + + | Marital Status | | + + + | Buddhism Affiliation | Unknown | + + + | Race | Unknown | + + + | Ethnic Group | Unknown | + + + Author + + + | Author | [facility] | | | and [place] | + + + | Organization | [facility] | | | [...] Team Providers + +------+ + | Care Marketing And Promotions Manager Name | Role | Phone | + +------+ + PCP | Unavailable | + +------+ + Encounter Details +--------+ + + + + | Date | Type | Department | Care Team | Description | +--------+ + + + + | 04/12/ | Orders Only | [facility] | [place], | | | 2018 | | GENERAL SURGERY [address] | [address] | | | | | [address] | [address] | | | | | [place], [place] | [place] [address] | | | | | [address] | [phone] | | | | | [phone] | | | +--------+ + + + [...]
--- OUTSIDE RECORDS SUMMARY | ~2019-03-09 | XMS | Encounter Summary ---
Demographics + + + | Address | [address] | | | [place] [address] | + + + | Home Phone [...] + | Author | [facility] | | | and [place] | + + + | Organization | [facility] | | [...] Providers + +------+ + | Care Machine Castings Plasterer Name | Role | Phone | + +------+ + PCP | Unavailable | + +------+ + Encounter Details +--------+ + + + + | Date | Type | Department | Care Team | Description | +--------+ + + + + | 04/12/ | Hospital | [facility] | Dionicio, | Acute | | 2015 - | Encounter | [facility] | Bonnieroxane Jones, | gastroenteritis; PAF | | | | INTENSIVE CARE UNIT | MD Jaspal [address] | (paroxysmal atrial | | 04/23/ | | [address] | HEATHER E KAM[place], | fibrillation) ([facility]); | | 2014 | | [place], [place] | [place] [address] | Sepsis(995.91) | | | | [address] | [phone] | (HCC); Acute | | | | [phone] | | systolic heart | | | | | | failure (HCC); Acute | | | | | | respiratory failure | | | | | | ([facility]); Aspiration | | | | | | pneumonia ([facility]); | | | | | | COPD (chronic | | | | | | obstructive | | | | | | pulmonary disease) | | | | | | ([facility]); Crohn's | | | | | | disease ([facility]); | | | | | | 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 Hospital [...] , recurrent UTI, admitted on 04/06/14 in [facility] for nausea, vomiting pre viously ingested [...] intubated on 04/12/13 and t ransfered from [facility] to [facility]. SEE assessment and plan for [...] Procedure: ESOPHAGOGASTRODUODENOSCOPY; Surgeon: Bony Petty MD; Location: [facility] BEDSIDE PROCEDURE; Service: Gastroenterology; Laterality: N/A; [...] 04/23/14 0528 Gross per 24 hour Intake 73803 ml Output 6589 ml Net 7458 ml [...] fibrillation) Stricture esophagus dilated with bougue 20 swiss 04/21/2014 ASSESSMENT & PLAN Intrabd bleeding Abd/spleen [...] on hemaglobin trending down. Called general surgeon race relations adviser. No interventional radiology. Pt taken to OR [...] products since that time. Surgical history from [facility] records Small bowel resection with [...] Reported Idiopathic Cardiomyopathy: LVEF 30% by ECHO ([facility]). Normal EF 60-65% ECHO at [facility] 04/20/14 Impression 1. Overall left [...] home prior to this admission ad [facility]. This could have been due to her esophageal stricture which was just diagnosed 04/21/14 and treated with dilatation. Last sputum 04/19/14 Description SPUTUM GRAM STAIN GREATER THAN 10 WBCS/LPF GRAM STAIN LESS THAN 10 SEC/LPF GRAM STAIN NO ORGANISMS SEEN CULTURE 1+ CULTURE MATTHIEU ALBICANS A CULTURE Testing performed at [facility], [address] [place] [address] Resulting PCP negative. ID: B/L Aspiration pneumonia [...] compromised: On Remecade as out pt. From [facility] positive blood culture from 04/08/14 Staph capitis S to vanco, cipr, gent, levo, tigecycline I clinda. GI/NUTRITION: Crohn's disease. " for at least 40 yrs" As an outpt pt was on prilosec, remicade ( every 6 weeks via rolando cath) and prednisone 5mg po daily ( from 04/06/2014 H and P admission for n/v/d abd pain and dehydration [place], [place]) Unknown last colonoscopy. Unknown last EGD [...] u p with hemotologist. Acquired record from [facility] and discussed 04/21/14 night with obed nd and daughter to acquire records from [facility] where pt has had additional work up in the past . From [facility] records. Confirmed that pt is [...] 04/23/14219 Date of Service: 04/23/14219 Status: Signed Travel Attendants: Yokasta Torrez RN (Registered Nurse) 5 Laps left in patient post op for packing. Trice Moon - 04/23/2014 12:22 AM PSTFormatting of this note might be different from t he original. Significant Event by Trice Fagan MD at 04/23/1421 Author: Trice Fagan MD Service: Enterprise Data Architect Author Type: Enterprise Data Architect Filed: 04/23/1440 Date of Service: 04/23/1421 Status: Addendum Travel Attendants: Trice Fagan MD (Physician) Related Notes: Original [...] at 04/22/142010 Author: Jannet Shields MD Service: Enterprise Data Architect Author Type: Enterprise Data Architect Filed: 04/22/142118 Date of Service: 04/22/142010 Status: Addendum Travel Attendants: Jannet Shields MD (Physician) Related Notes: Original Note by Jannet Shields MD (Physician) filed at 04/22/14 6423 [facility] Service: Enterprise Data Architect Progress Note Mackenzie Hartley 58 y.o. Hospital [...] , recurrent UTI, admitted on 04/06/14 in [facility] for nausea, vomiting pre viously ingested [...] given re intubation 04/19/14: Care conference with Enterprise Data Architect/AIMS. Continue with full treatment. Heparin infusi on was started due to the splenic artery thrombosis. 04/20/14: Dr. Petty was consult from GI to scope the patient prior to extubation. 04/22/14: Hemorrhagic shock from intraperitoneal bleed on heparin, [place], Right IJ Cordis, 6 units PRBC, 2 [...] Procedure: ESOPHAGOGASTRODUODENOSCOPY; Surgeon: Bony Petty MD; Location: [facility] BEDSIDE PROCEDURE; Service: Gastroenterology; Laterality: N/A; [...] fibrillation) Stricture esophagus dilated with bougue 20 swiss 04/21/2014 Crohn's disease Microcytic anemia Aspiration pneumonia [...] Idiopathic Cardiomyopathy: LVEF 60% here at [facility] improved over the 30% noted [...] dilated by Dr Petty with a 20 swiss robert 04/21/14 Intraperitoneal bleed/Hemorrhagic Shock: While on [...] Date of Service: 04/22/14 1315 Status: Signed Travel Attendants: Cher Bailey RN (Registered Nurse) Patient increasingly [...] Author: LEVI Acharya Service: (none) Author Type: Linen Room Custodian Filed: 04/22/14 1124 Date of Service: 04/22/14 1122 Status: Signed Travel Attendants: LEVI Acharya (Linen Room Custodian) Attended morning rounds. No family present during [...] 1458 Date of Service: 04/22/14814 Status: Signed Travel Attendants: Rich Jiménez PT (Physical Therapist) 04/22/14814 PT [...] 04/21/141824 Date of Service: 04/21/141821 Status: Signed Travel Attendants: Taylor Trevino RN (Registered Nurse) Attempted to call pt's Norm [phone] to obtain consent to give blood. No answe r, will attempt to call again soon. TAYLOR TREVINO 04/21/2014 onver roshan Transaction, Provider Unknown - 04/21/2014 4:46 PM PST Progress Notes by Darline Hartley RN at 04/21/14 1646 Author: Darline Hartley RN Service: (none) Author Type: Registered Nurse Filed: 04/21/14 1647 Date of Service: 04/21/14 164 Status: Signed Travel Attendants: Darline Hartley RN (Registered Nurse) Savary dilators used incrementally at 18Fr and 20Fr. DARLINE HARTLEY onver roshan Transaction, Provider Unknown - 04/21/2014 3:30 PM PST Progress Notes by Taylor Trevino RN at 04/21/14 1530 Author: Taylor Trevino RN Service: (none) Author Type: Registered Nurse Filed: 04/21/14 6147 Date of Service: 04/21/14 1530 Status: Signed Travel Attendants: Taylor Trevino RN (Registered Nurse) Dr Petty [...] Date of Service: 04/21/14 1340 Status: Signed Travel Attendants: Leah Chris RPH (Pharmacist) Day 10 Vanco [...] Date of Service: 04/21/14 1015 Status: Signed Travel Attendants: Jaz Mobley PT (Physical Therapist) 04/21/14 1015 [...] 04/21/14 1008 Author: Trice Fagan MD Service: Enterprise Data Architect Author Type: Enterprise Data Architect Filed: 04/21/14 6633 Date of Service: 04/21/14 100 Status: Signed Travel Attendants: Trice Fagan MD (Physician) [facility] Service: Enterprise Data Architect Progress Note Mackenzie Hartley 58 y.o. Hospital [...] , recurrent UTI, admitted on 04/06/14 in [facility] for nausea, vomiting pre viously ingested [...] given re intubation 04/19/14: Care conference with Enterprise Data Architect/AIMS. Continue with full treatment. Heparin infusi on [...] stable. Idiopathic Cardiomyopathy: LVEF 30% by ECHO ([facility]). ECHO here at [facility] 04/20/14 Impression 1. Overall left [...] (none) Author Type: Registered Nurse Filed: 04/20/14 3529 Date of Service: 04/20/14 170 Status: Signed Travel Attendants: Taylor Trevino RN (Registered Nurse) Labs drawn from [facility] per protocol. Flushed with 20ML NS, jhony back and wasted 8ML blo od and then jhony sample. Labs sent to lab per orders. TAYLOR TREVINO 04/20/2014 onver roshan Transaction, Provider Unknown - 04/20/2014 2:54 PM PST Progress Notes by Pia Garcia RD, ALO at 04/20/14 5721 Author: Pia Garcia RD, CD Service: (none) Author Type: Registered Dietitian Filed: 04/20/14 9078 Date of Service: 04/20/14 0834 Status: Signed Travel Attendants: Pia Garcia RD, CD (Registered Dietitian) Nutrition [...] Progress Notes by JENARO Perez at 04/20/14 1144 Author: JENARO Perez Service: Enterprise Data Architect Author Type: Enterprise Data Architect Filed: 04/20/14 1183 Date of Service: 04/20/141402 Status: Signed Travel Attendants: JENARO Perez (Nurse Practitioner) [facility] Service: Enterprise Data Architect Progress Note Mackenzie Hartley 58 y.o. Hospital Day: LOS: 8 days Post-Op Day: * No surgery found * Consulting Physicians Treatment Team: Consulting Physician: Eric Chavez MD Consulting Physician: Bony Petty MD Admitting Provider: Bonnie Greenberg MD SUBJECTIVE Patient Summary: Per Dr Greenberg: The patient is a 58 y.o. 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 Continue with full treatment. Heparin infusi on [...] Life issues: Was a DNR while in [facility] but consented to be intubated prior to [...] stable. Idiopathic Cardiomyopathy: LVEF 30% by ECHO ([facility]). PULM: Pulmonary Edema: Related to cardiomyopathy and [...] 04/20/14899 Date of Service: 04/20/14899 Status: Signed Travel Attendants: Leah Chris RPH (Pharmacist) Day 9 Vanco Tx Todays Scr= 0.58, WBC= 21.3 with estim CrCl= 110.5 ml/min Pharmacist: LEAH CHRIS 04/20/2014 8:59 AM onver roshan Transaction, Provider Unknown - 04/19/2014 7:53 PM PST Progress Notes by Mila Pinedo at 04/19/141952 Author: Mila Pinedo Service: (none) Author Type: Filed: 04/19/142001 Date of Service: 04/19/141952 Status: Signed Travel Attendants: Mila Pinedo (Hair Colorist) AIM care conference with Dr Chavez and Maryjane AIM/CM expanded to include ICU Enterprise Data Architect and pts current RN. Present also were Mackenzie's , Kole, and two of the four children, Silva and Otilia. Enterprise Data Architect gave a thorough explanation of the progression [...] for a good part of her vocation. Enterprise Data Architect asked for another care conference on Friday 04/21 to update the family on Mackenzie' s progress. oLyly mills MSW - 04/19/2014 4:14 PM PST Progress Notes by LEVI Cervantes at 04/19/14 1614 Author: LEVI Cervantes Service: (none) Author Type: Linen Room Custodian Filed: 04/19/14 8404 Date of Service: 04/19/14 1614 Status: Signed Travel Attendants: LEVI Cervantes (Linen Room Custodian) SOPHIE SAEED, SOPHIE SIMS, Hair Colorist, pt's RN Kassandra Garrett and ICU Enterprise Data Architect met with family to ex plore goals of care. ICU Enterprise Data Architect thoroughly explained pt's course of care during [...] and dtrs Angi and Otilia live in [place], [place]. Family e xpressed strong concerns that [...] several months and had see n an hearing aid mechanic for the mouth and throat sores to no avail. Pt's spouse Kole and pt's dtr express tremendous frustration over what they perceive has been poor med ical management of pt's illnesses prior to this admission. ICU Enterprise Data Architect recommended a wo rk up of pt's [...] 04/19/141327 Date of Service: 04/19/141327 Status: Signed Travel Attendants: Paula Barnes RPH (Pharmacist) Clinical Pharmacy Note: [...] Note by Rhianna Blackwood RN at 04/19/14 1159 Author: Rhianna Blackwood RN Service: (none) Author Type: Registered Nurse Filed: 04/19/14 1152 Date of Service: 04/19/14 115 Status: Signed Travel Attendants: Rhianna Blackwood RN (Registered Nurse) Wound care [...] Progress Notes by JENARO Perez at 04/19/14 4458 Author: JENARO Perez Service: Enterprise Data Architect Author Type: Enterprise Data Architect Filed: 04/20/14 0749 Date of Service: 04/19/14 1752 Status: Signed Travel Attendants: JENARO Perez (Nurse Practitioner) [facility] Service: Enterprise Data Architect Progress Note Mackenzie Odilia 58 y.o. Hospital Day: LOS: 7 days Post-Op Day: * No surgery found * Consulting Physicians Treatment Team: Consulting Physician: Eric Chavez MD Admitting Provider: Bonnie Greenberg MD SUBJECTIVE Patient Summary: Per Dr Greenberg: The patient is a 58 y.o. 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 Continue with full treatment. Events Overnight: No [...] Life issues: Was a DNR while in [facility] but consented to be intubated prior to [...] stable. Idiopathic Cardiomyopathy: LVEF 30% by ECHO ([facility]). PULM: Pulmonary Edema: Related to cardiomyopathy and [...] Author: LEVI Acharya Service: (none) Author Type: Linen Room Custodian Filed: 04/19/14 113 Date of Service: 04/19/14 113 Status: Signed Travel Attendants: LEVI Acharya (Linen Room Custodian) Care conference arranged for today at 2pm with Dr. Chavez. Await decision of family regardin g continued aggressive care vs. Comfort care. onver roshan Transaction, Provider Unknown - 04/19/2014 9:10 AM PST Therapy Progress Note by Rich Jiménez PT at 04/19/14 0910 Author: Rich Jiménez PT Service: (none) Author Type: Physical Therapist Filed: 04/19/14 1153 Date of Service: 04/19/14 0910 Status: Signed Travel Attendants: Rich Jiménez PT (Physical Therapist) 04/19/14 0910 PT Last Visit PT Received On 04/19/14 Requires PT Follow Up On hold yly Krishnamurthy MSW - 04/18/2014 5:22 PM PST Progress Notes by LEVI Cervantes at 04/18/14 172 Author: LEVI Cervantes Service: (none) Author Type: Linen Room Custodian Filed: 04/18/141723 Date of Service: 04/18/141721 Status: Signed Travel Attendants: LEVI Cervantes (Linen Room Custodian) SOPHIE SIMS was summoned to pt's room by pt's RN. Two adult dtr's were bedside. MANAGER VALUATION asked it they would be able to meet with SOPHIE service , wall scraper/AREA FIELD PERSON, ICU MANAGER VALUATION and director of institutional research vero hoover to discuss goals of care. [...] Date of Service: 04/18/14 1419 Status: Signed Travel Attendants: Rich Jiménez PT (Physical Therapist) 04/18/14 1419 PT Last Visit PT Received On 04/18/14 Requires PT Follow Up On hold onver roshan Transaction, Provider Unknown - 04/18/2014 12:07 PM PST Case Management by LEVI Acharya at 04/18/14 1207 Author: LEVI Acharya Service: (none) Author Type: Linen Room Custodian Filed: 04/18/14 1210 Date of Service: 04/18/14 1207 Status: Signed Travel Attendants: LEVI Acharya (Linen Room Custodian) called pt's spouse Kole. Spoke with him [...] one of them to accompany him to [place] and is waiting to hear from the [...] Author: LEVI Cervantes Service: (none) Author Type: Linen Room Custodian Filed: 04/18/14 1033 Date of Service: 04/18/14 103 Status: Signed Travel Attendants: LEVI Cervantes (Linen Room Custodian) AIM MANAGER VALUATION called pt's spouse Kole using phone contact number on [facility] Best RN CM progress not e. [...] 04/18/14930 Date of Service: 04/18/14930 Status: Signed Travel Attendants: Paula Barnes RPH (Pharmacist) Clinical Pharmacy Note: Vancomycin Day 7 No trough ordered today Dose @ 1400 Vancomycin 1250mg Daily IVPB Improvement in Scr. If this is sustained, will check level tomorrow to see we are not unde rdosing. Paula Barnes RP 04-18-2014 Mai Madrigal ARNP - 04/18/2014 6:42 AM PST Progress Notes by JENARO Mcdermott at 04/18/14 0642 Author: JENARO Mcdermott Service: Enterprise Data Architect Author Type: Nurse Practitioner Filed: 04/18/14 1137 Date of Service: 04/18/14 0642 Status: Signed Travel Attendants: JENARO Mcdermott (Nurse Practitioner) [facility] Service: Enterprise Data Architect Progress Note Mackenzie Hartley 58 y.o. Hospital [...] COPD, recurrent UTI, admitted on 04/06/14 in [facility] for nausea, vomiti ng previously ingested [...] chloride 0.9 % 10 mL Intravenous Q12H GISESLL vancomycin 17 mg/kg Intravenous Q24H warfarin 3 [...] Life issues: Was a DNR while in [facility] but convinced to be intubated prior to [...] stable. Idiopathic Cardiomyopathy: LVEF 30% by ECHO ([facility]). Lasix 20mg today (04/18) PULM: Pulmonary Edema: [...] 04/17/141411 Date of Service: 04/17/141411 Status: Signed Travel Attendants: Paula Barnes RPH (Pharmacist) Clinical Pharmacy Note: Vancomycin Day 6 Vancomycin trough today at 1300 was 17.5 Scr 0.96 mg/dL CrCl 66.8 ml/min WBC 19.2 Continue Vancomycin 1250 mg IV q24h Dose at 1400 Paula Barnes RP 04-17-2014 onver roshan Transaction, Provider Unknown - 04/17/2014 11:07 AM PST Case Management by LEVI Acharya at 04/17/14 1107 Author: LEVI Acharya Service: (none) Author Type: Linen Room Custodian Filed: 04/17/148 Date of Service: 04/17/141106 Status: Signed Travel Attendants: LEVI Acharya (Linen Room Custodian) Pt re-intubated yesterday. Dr. Chavez to consult [...] 04/17/1445 Date of Service: 04/17/14939 Status: Signed Travel Attendants: Jessica Huerta PT (Physical Therapist) 04/17/14939 PT Last Visit PT Received On 04/17/14 Requires PT Follow Up On hold (see comments) Other Comments Comments Pt remains intubated. Awaiting new orders when/if appropriate. Mai Madrigal ARNP - 04/17/2014 8:58 AM PST Progress Notes by JENARO Mcdermott at 04/17/14 0858 Author: JENARO Mcdermott Service: Enterprise Data Architect Author Type: Nurse Practitioner Filed: 04/17/14 1237 Date of Service: 04/17/1458 Status: Addendum Travel Attendants: JENARO Mcdermott (Nurse Practitioner) Related Notes: Original Note by JENARO Mcdermott (Nurse Practitioner) filed at 10/23 1111 [facility] Service: Enterprise Data Architect Progress Note Mackenzie Hartley 58 y.o. Hospital Day: LOS: 5 days Post-Op Day: * No surgery found * Consulting Physicians Treatment Team: Consulting Physician: Eric Chavez MD Admitting Provider: Bonnie Greenberg MD SUBJECTIVE Patient Summary: Per Dr Greenberg: The patient is a 58 y.o. 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 Will use prophylactic dose Lovenox, & consider warfarin PAF: Paroxysmal Atrial Fib treated with amiodarone now staying in [facility]. Idiopathic Cardiomyopathy: LVEF 30% by ECHO from recent ECHO in [facility] PULM: Pulmonary Edema: Related to cardiomyopathy and [...] Notes by Nadir Yee RPH at 04/16/14 2165 Author: Nadir Yee RPH Service: Pharmacy Author Type: Pharmacist Filed: 04/16/14 4979 Date of Service: 04/16/14 1541 Status: Signed Travel Attendants: Nadir Yee RPH (Pharmacist) Vancomycin day 5, trough at 1300 today was 19.3 (goal 15-20). Will continue at same dosing and recheck a trough level on 04/17 at 1300. onver roshan Transaction, Provider Unknown - 04/16/2014 1:25 PM PST Progress Notes by Jacoby Muñoz RD at 04/16/14 1328 Author: Jacoby Muñoz RD Service: (none) Author Type: Registered Dietitian Filed: 04/16/14 5569 Date of Service: 04/16/14 1325 Status: Signed Travel Attendants: Jacoby Muñoz RD (Registered Dietitian) Nutrition Follow-Up [...] Date of Service: 04/16/14 1222 Status: Signed Travel Attendants: Rich Jiménez PT (Physical Therapist) 04/16/14 1222 [...] Date of Service: 04/16/14 1151 Status: Signed Travel Attendants: Nadir Yee RPH (Pharmacist) Vancomycin day 5, est crcl 74.5ml/min, awaiting trough level at 1300 today. onver roshan Transaction, Provider Unknown - 04/16/2014 11:37 AM PST Case Management by Alessia Smith RN at 04/16/14 1137 Author: Alessia Smith RN Service: (none) Author Type: Registered Nurse Filed: 04/16/14 1618 Date of Service: 04/16/14 1137 Status: Addendum Travel Attendants: Alessia Smith RN (Registered Nurse) Related Notes: Original Note by Alessia Smith RN (Registered Nurse) filed at 04/16/14 3169 Tried to call but number on facesheet is non-functioning. Called [facility] for t elephone number (they have same number). They will also fax a page from pt.s last admission to them that states pt.iIs full code. Will continue to try and connect with per Dr. Hsu request. Kole's phone as listed in the room is [phone]. Spoke with him, he didn't have plans to visit today, he is unemployed and funds are tight. Will let Dr. Segundo know and pos sible phone contact to happen this afternoon. 1300 Kole's number and info given to Dr. Segundo. . Also showed Dr. Segundo fax from [facility], d/c summary from 04/12/14, documenting change from [...] and only recently decided full code at [facility]. Kole to consult 4 adult children. Will contin ue aggressive care for another day or two per Dr Segundo. onver roshan Transaction, Provider Unknown - 04/16/2014 10:48 AM PST Nurse Progress Note by Becka Lama RN at 04/16/14 1048 Author: Becka Lama RN Service: (none) Author Type: Registered Nurse Filed: 04/16/14 1049 Date of Service: 04/16/14 1048 Status: Signed Travel Attendants: Becka Lama RN (Registered Nurse) Attempted to visit pt for Coumadin Education. Pt intubated in ICU. Coumadin education pina klet left on chart to review with pt as appropriate. Jannet Roach MD - 04/16/2014 5:31 AM PSTFormatting of this note might be different from the briana ginal. Progress Notes by Jannet Shields MD at 04/16/14530 Author: Jannet Shields MD Service: Enterprise Data Architect Author Type: Enterprise Data Architect Filed: 04/16/1449 Date of Service: 04/16/14530 Status: Signed Travel Attendants: Jannet Shields MD (Physician) [facility] Service: Enterprise Data Architect Progress Note Mackenzie Hartley 58 y.o. Hospital [...] COPD, recurrent UTI, admitted on 04/06/14 in [facility] for nausea, vomiti ng previously ingested [...] Life issues: Was a DNR while in [facility] but convinced to be intubated prior to tr cristina, will consult palliative care service and engage in conversation about this i ssue CV: Splenic artery thrombosis. Will use prophylactic dose Lovenox, & consider warfarin PAF: Paroxysmal Atrial Fib treated with amiodarone now staying in [place]. Idiopathic Cardiomyopathy: LVEF 30% by ECHO from recent ECHO in [place] PULM: Pulmonary Edema: Related to cardiomyopathy and [...] 04/15/141801 Date of Service: 04/15/141801 Status: Signed Travel Attendants: Hipolito Isaac () Pt sleeping. Will continue to provide care as needed/requested. Chaplain Chandler onver roshan Transaction, Provider Unknown - 04/15/2014 3:45 PM PST Therapy Progress Note by Rich Jiménez PT at 04/15/14 1545 Author: Rich Jiménez PT Service: (none) Author Type: Physical Therapist Filed: 04/15/14 1743 Date of Service: 04/15/141544 Status: Signed Travel Attendants: Rich Jiménez PT (Physical Therapist) 04/15/14 1545 [...] Author: LEVI Acharya Service: (none) Author Type: Linen Room Custodian Filed: 04/15/14 1150 Date of Service: 04/15/14 1146 Status: Addendum Travel Attendants: LEVI Acharya (Linen Room Custodian) Related Notes: Original Note by LEVI Acharya (Linen Room Custodian) filed at 04/15/14 1148 Attended morning rounds. Pt is now on bi-pap. called and received update from RN. Informed that he would not be visiting pt today. He has not visited pt since her admit. I have placed pt on list at [facility] as a back up plan as she will likely need SNF for reha b. PT notes indicate this as well. [facility] - [phone] onver roshan Transaction, Provider Unknown - 04/15/2014 8:12 AM PST Progress Notes by Nadir Yee RPH at 04/15/14811 Author: Nadir Yee RPH Service: Pharmacy Author Type: Pharmacist Filed: 04/15/14811 Date of Service: 04/15/14811 Status: Signed Travel Attendants: Nadir Yee RPH (Pharmacist) Vancomycin day 4, [...] at 04/15/14644 Author: Jannet Shields MD Service: Enterprise Data Architect Author Type: Enterprise Data Architect Filed: 04/15/14 0702 Date of Service: 04/15/14644 Status: Signed Travel Attendants: Jannet Shields MD (Physician) [facility] Service: Enterprise Data Architect Progress Note [facility] 58 [facility].o[facility] [...] COPD, recurrent UTI, admitted on 04/06/14 in [facility] for nausea, vomiting previously ing ested [...] 04/14/141850 Date of Service: 04/14/141850 Status: Signed Travel Attendants: Alireza Vides RPH (Pharmacist) vanco level came back high at 33.0. Will hold current dose and redraw a level tomorrow morn ing with am labs. Goal trough 15-20. onver roshan Transaction, Provider Unknown - 04/14/2014 1:36 PM PST Therapy Progress Note by Juma Bazzi PT at 04/14/14 4697 Author: Juma Bazzi PT Service: (none) Author Type: Physical Therapist Filed: 04/14/14 6506 Date of Service: 04/14/141335 Status: Signed Travel Attendants: Juma Bazzi PT (Physical Therapist) 04/14/14 1336 PT Last Visit PT Received On 04/14/14 Reason for Treatment Deconditioning;Other (comment) (Acute Resp Failure; co-morbidities) Requires PT Follow Up Awaiting tx order Follow up PT Only? Yes (Further mobility assessment) PT Eval/Reassessment Date 04/14/14 Assistance Required 1 person;2 person Community Support Specialist Needed No Requires PT Follow Up [...] pt's mentation progresses. Prior Function Level of [place] Independent with ADLs;Independent with functional mobility;Independe nt [...] Date 04/14/14 Assistance Required 1 person;2 person Community Support Specialist Needed No Precautions Other Precautions Fall [...] Date of Service: 04/14/14 1210 Status: Signed Travel Attendants: Deborah Torres () This a new pt. Attempted visit, but pt is sedated and on bi-pap. No familly present at this time. Chaplain Deborah Torres onver roshan Transaction, Provider Unknown - 04/14/2014 9:42 AM PST Case Management by LEVI Acharya at 04/14/14941 Author: LEVI Acharya Service: (none) Author Type: Linen Room Custodian Filed: 04/14/14942 Date of Service: 04/14/14941 Status: Signed Travel Attendants: LEVI Acharya (Linen Room Custodian) 04/14/14938 Discharge Planning Evaluation Admitting Diagnosis acute [...] assist from . May need HHPT via [facility]. May n eed IPR?? DEMARCO MONTEZ onver roshan Kapooraction, Provider Unknown - 04/14/2014 9:29 AM PST Case Management by LEVI Acharya at 04/14/14928 Author: LEVI Acharya Service: (none) Author Type: Linen Room Custodian Filed: 04/14/14943 Date of Service: 04/14/14928 Status: Signed Travel Attendants: LEVI Acharya (Linen Room Custodian) Pt is sleeping with oxymask on. She was extubated early this morning. is not at e bedside. I called to obtain assessment. Zeferino Sheets MD - 04/14/2014 5:29 AM PST Progress Notes by Zeferino Aly MD at 04/14/14528 Author: Zeferino Aly MD Service: Enterprise Data Architect Author Type: Enterprise Data Architect Filed: 04/14/1438 Date of Service: 04/14/14528 Status: Signed Travel Attendants: Zeferino Aly MD (Physician) [facility] Service: Enterprise Data Architect Progress Note [facility] 58 [facility].o[facility] [...] COPD, recurrent UTI, admitted on 04/06/14 in [facility] for nausea, vomiting previously ing ested [...] Notes by Bonnie Greenberg MD at 04/13/14 5336 Author: Bonnie Greenberg MD Service: Enterprise Data Architect Author Type: Physician Filed: 04/13/14 0032 Date of Service: 04/13/14 6507 Status: Signed Travel Attendants: Bonnie Greenberg MD (Physician) [facility] Service: Enterprise Data Architect Progress Note [facility]enzie [facility] 58 y.o[facility] Hospital [...] COPD, recurrent UTI, admitted on 04/06/14 in [facility] for nausea, vomiting previously ing ested [...] Date of Service: 04/13/14 1015 Status: Signed Travel Attendants: Osvaldo Allen RRT (Registered Respiratory Therapist) Tried to wean to PS/CPAP but she is not breathing regularly enough. Placed on PRVC with low RR & automode for now. onver roshan Transaction, Provider Unknown - 04/13/2014 9:57 AM PST Case Management by LEVI Acharya at 04/13/14 0948 Author: LEVI Acharya Service: (none) Author Type: Linen Room Custodian Filed: 04/13/14 1045 Date of Service: 04/13/14 0957 Status: Addendum Travel Attendants: LEVI Acharya (Linen Room Custodian) Related Notes: Original Note by LEVI Acharya (Linen Room Custodian) filed at 04/13/14 1044 Pt was transferred from [facility]. She is vented. has not called or v isited. I attempted to reach him by home phone ([phone]) however he did not answer. I [facility] stafff has left messages as well. I called the [place] [employer] and requested a drive-by to see if can be reached. [employer] will call me back after they have tried to make contact with . Addendum: Received t/c from pt's , Kloe. He states that the police came to his ho me to request that he call us. He stated that we had been leaving messages on patient's cell phone. His cell number is [phone]. I asked him if he would be [...] prefe r that. He requested that the Enterprise Data Architect call him. Provided Dr. Greenberg with 's [...] 04/13/14915 Date of Service: 04/13/14913 Status: Signed Travel Attendants: Jaquelin Cat RN (Registered Nurse) Received order [...] 04/12/142033 Date of Service: 04/12/142033 Status: Signed Travel Attendants: Britni Shaffer RPH (Pharmacist) Renal Dosing Monitoring: [...] 04/12/142032 Date of Service: 04/12/142032 Status: Signed Travel Attendants: Britni Shaffer RPH (Pharmacist) Clinical Pharmacy Note: Initiation of Vancomycin Pharmacy Dosing Mackenzie Hartley 58 y.o. female 1.753 m (5' 9") 78.4 kg (172 lb 13.5 oz) Body mass index is 25.51 kg/(m^2). CREATININE Date Value Range Status 04/12/2014 0.96 0.50 - 1.00 mg/dL Final Testing performed at [facility];[address] [place] [id number] Estimated CrCl : CREATININE: 0.96 (04/12/14 1731) [...] a dusky-brown | | | friable tissue. Biological Sciences Instructor sections are submitted in cassettes | | | (A1-A3). FM MICROSCOPIC EXAMINATION: Histologic sections of all | | | submitted blocks are examined by light microscopy. These findings, | | | together with the gross examination, support the pathologic diagnosis. | | | PERFORMING LABORATORY: Professional interpretation and technical | | | preparation was performed by [facility], [facility] | | | [address] [address] (Satin Finisher: | | | Raphael Yee M.D.; BILL#: [id number]). Diagnostician: Salty Bolton | | | King [...] | | | Fingerstick | performed at [facility];[address] | | LAB | | | | [address];[place], [place] | | | | | | [address] | | | | + + + [...] EXTERNAL | | | | performed at [facility];[address] | | LAB | | | | [address];[place] | | | | | | [address] | | | | + + + + + + | RED CELL | 3.62 (L)Comment: Testing | 3.70 - 5.10 | EXTERNAL | | | COUNT | performed at [facility];[address] | M/uL | LAB | | | | [address];[place] | | | | | | [address] | | | | + + + + + + | Hgb | 10.5 (L)Comment: Testing | 11.3 - 15.5 | EXTERNAL | | | | performed at [facility];[address] | g/dL | LAB | | | | [address];[place] | | | | | | [address] | | | | + + + + + + | Hematocrit, | 31.3 (L)Comment: Testing | 34.0 - 46.0 % | EXTERNAL | | | POC | performed at [facility];[address] | | LAB | | | | [address];[place] | | | | | | [address] | | | | + + + + + + | MCV | 86.5Comment: Testing | 80.0 - 100.0 fl | EXTERNAL | | | | performed at [facility];[address] | | LAB | | | | [address];[place] | | | | | | [address] | | | | + + + + + + | MCH | 29.1Comment: Testing | 27.0 - 34.0 pg | EXTERNAL | | | | performed at [facility];[address] | | LAB | | | | [address];[place] | | | | | | [address] | | | | + + + + + + | MCHC | 33.6Comment: Testing | 32.0 - 35.5 | EXTERNAL | | | | performed at [facility];[address] | g/dL | LAB | | | | [address];[place] | | | | | | [address] | | | | + + + + + + | RDW-CV | 46.8Comment: Testing | 37 - 53 fl | EXTERNAL | | | | performed at [facility];[address] | | LAB | | | | [address];[place] | | | | | | [address] | | | | + + + + + + | Platelet | 185Comment: Testing | 150 - 400 K/uL | EXTERNAL | | | Count | performed at [facility];[address] | | LAB | | | Plasma | [address];[place] | | | | | | [address] | | | | + + + + + + | MPV | 7.2Comment: Testing | fl | EXTERNAL | | | | performed at [facility];[address] | | LAB | | | | [address];[place] | | | | | | [address] | | | | + + + + + + | Differentia | MANUALComment: Testing | | EXTERNAL | | | l Type | performed at [facility];[address] | | LAB | | | | [address];[place] | | | | | | [address] | | | | + + + + + + | Nucleated | 2 (H)Comment: Testing | /100WBC | EXTERNAL | | | Red Blood | performed at [facility];[address] | | LAB | | | Cells | [address];[place] | | | | | | [address] | | | | + + + + + + | Segmented | 71Comment: Testing | % | EXTERNAL | | | Neutrophils | performed at [facility];[address] | | LAB | | | Manual | [address];[place] | | | | | | [address] | | | | + + + + + + | % Bands | 13Comment: Testing | % | EXTERNAL | | | | performed at [facility];[address] | | LAB | | | | [address];[place] | | | | | | [address] | | | | + + + + + + | % | 1Comment: Testing | % | EXTERNAL | | | Metamyelocy | performed at [facility];[address] | | LAB | | | petros | [address];[place] | | | | | | [address] | | | | + + + + + + | Lymphocytes | 12Comment: Testing | % | EXTERNAL | | | Manual | performed at [facility];[address] | | LAB | | | | [address];[place] | | | | | | [address] | | | | + + + + + + | Monocytes | 3Comment: Testing | % | EXTERNAL | | | Manual | performed at [facility];[address] | | LAB | | | | [address];[place] | | | | | | [address] | | | | + + + + + + | Absolute | 8.3 (H)Comment: Testing | 1.9 - 7.4 K/uL | EXTERNAL | | | Neutrophils | performed at [facility];[address] | | LAB | | | | [address];[place] | | | | | | [address] | | | | + + + + + + | Bands | 1.5 (H)Comment: Testing | 0 - 0.2 K/uL | EXTERNAL | | | Manual | performed at [facility];[address] | | LAB | | | | [address];[place] | | | | | | [address] | | | | + + + + + + | Absolute | 0.1 (H)Comment: Testing | K/uL | EXTERNAL | | | Metamyelocy | performed at [facility];[address] | | LAB | | | petros | [address];[place] | | | | | | [address] | | | | + + + + + + | Absolute | 1.4Comment: Testing | 1.0 - 3.9 K/uL | EXTERNAL | | | Lymphocytes | performed at [facility];[address] | | LAB | | | | [address];[place] | | | | | | [address] | | | | + + + + + + | Absolute | 0.4Comment: Testing | 0 - 0.8 K/uL | EXTERNAL | | | Monocytes | performed at [facility];[address] | | LAB | | | | [address];[place] | | | | | | [address] | | | | + + + + + + | RBC | RBC AND PLT MORPHOLOGY | | EXTERNAL | | | Morphology | APPEAR NORMALComment: | | LAB | | | | Testing performed at | | | | | | [facility];[address];[place] [address] | | | | + + + [...] | | | Fingerstick | performed at [facility];[address] | | LAB | | | | [address];[place] | | | | | | [address] | | | | + + + [...] EXTERNAL | | | | performed at [facility];[address] | mmol/L | LAB | | | | [address];[place], [place] | | | | | | [address] | | | | + + + [...] EXTERNAL | | | | performed at [facility];[address] | | LAB | | | | [address];[place], [place] | | | | | | [address] | | | | + + + [...] EXTERNAL | | | | performed at [facility] | | LAB | | | | [address];[place], [place] | | | | | | [address] | | | | + + + [...] | | | | | | at [facility];[address] [place] [address] | | | | | | [facility];[place] [address] | | | | + + + [...] | | | Patient | performed at [facility];[address] | | LAB | | | | [address];[place] | | | | | | [address] | | | | + + + [...] | | | | | performed at [facility];[address] | | | | | | [facility];[place], [place] | | | | | | [address] | | | | + + + [...] EXTERNAL | | | | performed at [facility] | | LAB | | | | [address] [facility];[place], [place] | | | | | | [address] | | | | + + + [...] EXTERNAL | | | | performed at [facility];[address] | | LAB | | | | [address];[place] | | | | | | [address] | | | | + + + + + + | RED CELL | 2.14 (L)Comment: Testing | 3.70 - 5.10 | EXTERNAL | | | COUNT | performed at [facility];[address] | M/uL | LAB | | | | [address];[place] | | | | | | [address] | | | | + + + + + + | Hgb | 6.3 (LL)Comment: CALLED | 11.3 - 15.5 | EXTERNAL | | | | NURSING BEATRICE SCOTT M | g/dL | LAB | | | | AT 0450 BY KMREAD BACK | | | | | | RESULTS VERIFIEDTesting | | | | | | performed at [facility];[address] | | | | | | [address];[place] | | | | | | [address] | | | | + + + + + + | Hematocrit, | 18.5 (LL)Comment: CALLED | 34.0 - 46.0 % | EXTERNAL | | | POC | BEATRICE ANN | | LAB | | | | M AT 0450 BY LY.comREAD BACK | | | | | | RESULTS VERIFIEDTesting | | | | | | performed at [facility];[address] | | | | | | [address];[place] | | | | | | [address] | | | | + + + + + + | MCV | 86.4Comment: Testing | 80.0 - 100.0 fl | EXTERNAL | | | | performed at [facility];[address] | | LAB | | | | [address];[place] | | | | | | [address] | | | | + + + + + + | MCH | 29.4Comment: Testing | 27.0 - 34.0 pg | EXTERNAL | | | | performed at [facility];[address] | | LAB | | | | [address];[place] | | | | | | [address] | | | | + + + + + + | MCHC | 34.1Comment: Testing | 32.0 - 35.5 | EXTERNAL | | | | performed at [facility];888 | g/dL | LAB | | | | [address];[place] | | | | | | [address] | | | | + + + + + + | RDW-CV | 42.4Comment: Testing | 37 - 53 fl | EXTERNAL | | | | performed at [facility];[address] | | LAB | | | | [address];[place] | | | | | | [address] | | | | + + + + + + | Platelet | 139 (L)Comment: Testing | 150 - 400 K/uL | EXTERNAL | | | Count | performed at [facility];[address] | | LAB | | | Plasma | [address];[place] | | | | | | [address] | | | | + + + + + + | MPV | 7.3Comment: Testing | fl | EXTERNAL | | | | performed at [facility];[address] | | LAB | | | | [address];[place] | | | | | | [address] | | | | + + + + + + | Differentia | MANUALComment: Testing | | EXTERNAL | | | l Type | performed at [facility];[address] | | LAB | | | | [address];[place] | | | | | | [address] | | | | + + + + + + | Nucleated | 3 (H)Comment: Testing | /100WBC | EXTERNAL | | | Red Blood | performed at [facility];[address] | | LAB | | | Cells | [address];[place] | | | | | | [address] | | | | + + + + + + | Segmented | 85Comment: Testing | % | EXTERNAL | | | Neutrophils | performed at [facility];[address] | | LAB | | | Manual | [address];[place] | | | | | | [address] | | | | + + + + + + | % Bands | 3Comment: Testing | % | EXTERNAL | | | | performed at [facility];[address] | | LAB | | | | [address];[place] | | | | | | [address] | | | | + + + + + + | % | 1Comment: Testing | % | EXTERNAL | | | Metamyelocy | performed at [facility];[address] | | LAB | | | petros | [address];[place] | | | | | | [address] | | | | + + + + + + | Lymphocytes | 8Comment: Testing | % | EXTERNAL | | | Manual | performed at [facility];[address] | | LAB | | | | [address];[place] | | | | | | [address] | | | | + + + + + + | Monocytes | 3Comment: Testing | % | EXTERNAL | | | Manual | performed at [facility];[address] | | LAB | | | | [address];[place] | | | | | | [address] | | | | + + + + + + | Absolute | 12.9 (H)Comment: Testing | 1.9 - 7.4 K/uL | EXTERNAL | | | Neutrophils | performed at [facility];[address] | | LAB | | | | [address];[place] | | | | | | [address] | | | | + + + + + + | Bands | 0.5 (H)Comment: Testing | 0 - 0.2 K/uL | EXTERNAL | | | Manual | performed at [facility];[address] | | LAB | | | | [address];[place] | | | | | | [address] | | | | + + + + + + | Absolute | 0.2 (H)Comment: Testing | K/uL | EXTERNAL | | | Metamyelocy | performed at [facility];[address] | | LAB | | | [address]ros | [address];[place] | | | | | | [address] | | | | + + + + + + | Absolute | 1.2Comment: Testing | 1.0 - 3.9 K/uL | EXTERNAL | | | Lymphocytes | performed at [facility];[address] | | LAB | | | | [address];[place] | | | | | | [address] | | | | + + + + + + | Absolute | 0.5Comment: Testing | 0 - 0.8 K/uL | EXTERNAL | | | Monocytes | performed at [facility];[address] | | LAB | | | | [address];[place] | | | | | | [address] | | | | + + + + + + | RBC | 1+Comment: POLYNORMAL | | EXTERNAL | | | Morphology | PLT MORPHTesting | | LAB | | | | performed at [facility];[address] | | | | | | [address];[place] | | | | | | [address] | | | | | | | [...] | | | | performed at [facility], [address] | | LAB | | | | [address], | | | | | | [place] [address] | | | | + + + [...] EXTERNAL | | | | performed at [facility];[address] | | LAB | | | | [address];[place], [place] | | | | | | [address] | | | | + + + [...] | | | | performed at [facility], [address] | | LAB | | | | [address], | | | | | | [place] [address] | | | | + + + [...] | | | | | [place] [address] | | | | + + + [...] | | | | | [place] [address] | | | | + + + + + + | Albumin | 2.3 (L)Comment: Testing | 3.6 - 5.0 g/dL | EXTERNAL | | | | performed at [facility], [address] | | LAB | | | | [address], | | | | | | [place] [address] | | | | + + + + + + | Bilirubin | 1.0Comment: Testing | 0.1 - 1.5 mg/dL | EXTERNAL | | | Total | performed at [facility], [address] | | LAB | | | | [address], | | | | | | [place] [address] | | | | + + + + + + | Bilirubin | 0.4 (H)Comment: Testing | 0.0 - 0.3 mg/dL | EXTERNAL | | | Direct | performed at [facility], [address] | | LAB | | | | [address], | | | | | | [place] [address] | | | | + + + + + + | ALP, | 44Comment: Testing | 35 - 115 U/L | EXTERNAL | | | External | performed at [facility], [address] | | LAB | | | | [address], | | | | | | [place] [address] | | | | + + + + + + | AST | 1,732 (H)Comment: | 10 - 45 U/L | EXTERNAL | | | | Testing performed at | | LAB | | | | [facility], [address] | | | | | | [place] | | | | | | [address] | | | | + + + + + + | ALT | 901 (H)Comment: Testing | 10 - 65 U/L | EXTERNAL | | | | performed at [facility], [address] | | LAB | | | | [address], | | | | | | [place] [address] | | | | + + [...] | | | | | [place] [address] | | | | + + + + + + | K | 3.7Comment: Testing | 3.5 - 4.9 | EXTERNAL | | | | performed at [facility], [address] | mmol/L | LAB | | | | [address], | | | | | | [place] [address] | | | | + + + + + + | Cl | 113 (H)Comment: Testing | 99 - 109 mmol/L | EXTERNAL | | | | performed at [facility], [address] | | LAB | | | | [address], | | | | | | [place] [address] | | | | + + + + + + | CO2 | 28Comment: Testing | 23 - 32 mmol/L | EXTERNAL | | | | performed at [facility], [address] | | LAB | | | | [address], | | | | | | [place] [address] | | | | + + + + + + | Anion Gap | 10Comment: Testing | 5 - 20 mmol/L | EXTERNAL | | | | performed at [facility], [address] | | LAB | | | | [address], | | | | | | [place] [address] | | | | + + + + + + | Glucose, | 146 (H)Comment: Testing | 65 - 99 mg/dL | EXTERNAL | | | Fasting | performed at [facility], [address] | | LAB | | | | [address], | | | | | | [place] [address] | | | | + + + + + + | BUN | 37 (H)Comment: Testing | 8 - 25 mg/dL | EXTERNAL | | | | performed at [facility], [address] | | LAB | | | | [address], | | | | | | [place] [address] | | | | + + + + + + | Creatinine | 1.21 (H)Comment: Testing | 0.50 - 1.00 | EXTERNAL | | | | performed at [facility], [address] | mg/dL | LAB | | | | [address], | | | | | | [place] [address] | | | | + + + + + + | BUN/Creatin | 31Comment: Testing | | EXTERNAL | | | ine Ratio | performed at [facility], [address] | | LAB | | | | [address], | | | | | | [place] [address] | | | | + + + + + + | Calcium | 7.9 (L)Comment: Testing | 8.5 - 10.2 | EXTERNAL | | | | performed at [facility], [address] | mg/dL | LAB | | | | [address], | | | | | | [place] [address] | | | | + + + [...] | | | | | at [facility], [address] | | | | | | [address], | | | | | | [place] [address] | | | | + + + [...] EXTERNAL | | | | performed at [facility];[address] | | LAB | | | | [address];[place] | | | | | | [address] | | | | + + + + + + | RED CELL | 3.39 (L)Comment: Testing | 3.70 - 5.10 | EXTERNAL | | | COUNT | performed at [facility];[address] | M/uL | LAB | | | | [address];[place] | | | | | | [address] | | | | + + + + + + | Hgb | 9.6 (L)Comment: Testing | 11.3 - 15.5 | EXTERNAL | | | | performed at [facility];[address] | g/dL | LAB | | | | [address];[place] | | | | | | [address] | | | | + + + + + + | Hematocrit, | 29.4 (L)Comment: Testing | 34.0 - 46.0 % | EXTERNAL | | | POC | performed at [facility];[address] | | LAB | | | | [address];[place] | | | | | | [address] | | | | + + + + + + | MCV | 86.8Comment: Testing | 80.0 - 100.0 fl | EXTERNAL | | | | performed at [facility];[address] | | LAB | | | | [address];[place] | | | | | | [address] | | | | + + + + + + | MCH | 28.2Comment: Testing | 27.0 - 34.0 pg | EXTERNAL | | | | performed at [facility] [facility];888 | | LAB | | | | [address];[place] | | | | | | [address] | | | | + + + + + + | MCHC | 32.5Comment: Testing | 32.0 - 35.5 | EXTERNAL | | | | performed at [facility];888 | g/dL | LAB | | | | [address];[place] | | | | | | [address] | | | | + + + + + + | RDW-CV | 42.4Comment: Testing | 37 - 53 fl | EXTERNAL | | | | performed at [facility];[address] | | LAB | | | | [address];[place] | | | | | | [address] | | | | + + + + + + | Platelet | 57 (L)Comment: Testing | 150 - 400 K/uL | EXTERNAL | | | Count | performed at [facility];888 | | LAB | | | Plasma | [address];[place] | | | | | | [address] | | | | + + + + + + | MPV | 8.8Comment: Testing | fl | EXTERNAL | | | | performed at [facility];[address] | | LAB | | | | [address];[place] | | | | | | [address] | | | | + + + + + + | Differentia | MANUALComment: Testing | | EXTERNAL | | | l Type | performed at [facility];[address] | | LAB | | | | [address];[place] | | | | | | [address] | | | | + + + + + + | Nucleated | 2 (H)Comment: Testing | /100WBC | EXTERNAL | | | Red Blood | performed at [facility];888 | | LAB | | | Cells | [address];[place] | | | | | | [address] | | | | + + + + + + | Segmented | 76Comment: Testing | % | EXTERNAL | | | Neutrophils | performed at [facility];[address] | | LAB | | | Manual | [address];[place] | | | | | | [address] | | | | + + + + + + | % Bands | 10Comment: Testing | % | EXTERNAL | | | | performed at [facility];[address] | | LAB | | | | [address];[place] | | | | | | [address] | | | | + + + + + + | % | 2Comment: Testing | % | EXTERNAL | | | Metamyelocy | performed at [facility];[address] | | LAB | | | petros | [address];[place] | | | | | | [address] | | | | + + + + + + | Lymphocytes | 9Comment: Testing | % | EXTERNAL | | | Manual | performed at [facility];[address] | | LAB | | | | [address];[place] | | | | | | [address] | | | | + + + + + + | Monocytes | 3Comment: Testing | % | EXTERNAL | | | Manual | performed at [facility];[address] | | LAB | | | | [address];[place] | | | | | | [address] | | | | + + + + + + | Absolute | 11.0 (H)Comment: Testing | 1.9 - 7.4 K/uL | EXTERNAL | | | Neutrophils | performed at [facility];[address] | | LAB | | | | [address];[place] | | | | | | [address] | | | | + + + + + + | Bands | 1.5 (H)Comment: Testing | 0 - 0.2 K/uL | EXTERNAL | | | Manual | performed at [facility];[address] | | LAB | | | | [address];[place] | | | | | | [address] | | | | + + + + + + | Absolute | 0.3 (H)Comment: Testing | K/uL | EXTERNAL | | | Metamyelocy | performed at [facility];[address] | | LAB | | | petros | [address];[place] | | | | | | [address] | | | | + + + + + + | Absolute | 1.3Comment: Testing | 1.0 - 3.9 K/uL | EXTERNAL | | | Lymphocytes | performed at [facility];[address] | | LAB | | | | [address];[place] | | | | | | [address] | | | | + + + + + + | Absolute | 0.4Comment: Testing | 0 - 0.8 K/uL | EXTERNAL | | | Monocytes | performed at [facility];[address] | | LAB | | | | [address];[place] | | | | | | [address] | | | | + + + + + + | Platelet | DECREASEDComment: | | EXTERNAL | | | Estimate | Testing performed at | | LAB | | | | [facility];[address];[place] [address] | | | | + + + + + + | RBC | 1+Comment: POLYTesting | | EXTERNAL | | | Morphology | performed at [facility];[address] | | LAB | | | | [address];[place] | | | | | | [address] | | | | | | | [...] | | | Fingerstick | performed at [facility];[address] | | LAB | | | | [address];[place] | | | | | | [address] | | | | + + + [...] EXTERNAL | | | | performed at [facility];[address] | | LAB | | | | [address];[place] | | | | | | [address] | | | | + + + + + + | PCO2 ART | 44Comment: Testing | 35 - 45 mmHg | EXTERNAL | | | | performed at [facility];[address] | | LAB | | | | [address];[place] | | | | | | [address] | | | | + + + + + + | PO2 ART | 251 (H)Comment: Testing | 80 - 105 mmHg | EXTERNAL | | | | performed at [facility];[address] | | LAB | | | | [address];[place] | | | | | | [address] | | | | + + + + + + | HCO3 ART | 24Comment: Testing | 22 - 26 mmol/L | EXTERNAL | | | | performed at [facility];[address] | | LAB | | | | [address];[place] | | | | | | [address] | | | | + + + + + + | POC | 26Comment: Testing | 23 - 27 mEq/L | EXTERNAL | | | APPEARANCE | performed at [facility];[address] | | LAB | | | UA | [address];[place] | | | | | | [address] | | | | + + + + + + | Base | 1Comment: Testing | 0.0 - 2.0 | EXTERNAL | | | deficit | performed at [facility];888 | mmol/L | LAB | | | | [address];[place] | | | | | | [address] | | | | + + + + + + | O2 SAT ART | 100 (H)Comment: Testing | 95 - 98 % | EXTERNAL | | | | performed at [facility];[address] | | LAB | | | | [address];[place] | | | | | | [address] | | | | + + + + + + | Sodium, POC | 146 (H)Comment: Testing | 135 - 145 mEq/L | EXTERNAL | | | | performed at [facility];[address] | | LAB | | | | [address];[place] | | | | | | [address] | | | | + + + + + + | Potassium, | 4.5Comment: Testing | 3.5 - 5.0 mEq/L | EXTERNAL | | | POC | performed at [facility];[address] | | LAB | | | | [address];[place] | | | | | | [address] | | | | + + + + + + | Ionized | 0.91 (L)Comment: Testing | 1.12 - 1.32 | EXTERNAL | | | Calcium, | performed at [facility];888 | mmol/L | LAB | | | POC | [address];[place] | | | | | | [address] | | | | + + + + + + | Glucose, | 232 (H)Comment: Testing | 65 - 99 mg/dL | EXTERNAL | | | POC | performed at [facility];[address] | | LAB | | | | [address];[place] | | | | | | [address] | | | | + + + + + + | Hematocrit, | 32 (L)Comment: Testing | 35.0 - 46.0 % | EXTERNAL | | | POC | performed at [facility];[address] | | LAB | | | | [address];[place] | | | | | | [address] | | | | + + + + + + | Hemoglobin, | 10.9 (L)Comment: Testing | 11.6 - 15.5 | EXTERNAL | | | POC | performed at [facility];888 | g/dL | LAB | | | | [address];[place] | | | | | | [address] | | | | + + + [...] | | | | | | ACUTE AR CKTRP PHONED TO | | | | | | ICU HELADIO Patiño AT 0339 BY | | | | | | LJREAD BACK RESULTS | | | | | | VERIFIEDTesting | | | | | | performed at [facility];[address] | | | | | | [address];[place], [place] | | | | | | [address] | | | | + + + [...] | | | M AT 0145 [email or web address] | | | | | | RESULTS VERIFIEDTesting | | | | | | performed at [facility];[address] | | | | | | [address];[place] | | | | | | [address] | | | | + + + + + + | RED CELL | 3.32 (L)Comment: Testing | 3.70 - 5.10 | EXTERNAL | | | COUNT | performed at [facility];888 | M/uL | LAB | | | | [address];[place] | | | | | | [address] | | | | + + + + + + | Hgb | 9.7 (L)Comment: Testing | 11.3 - 15.5 | EXTERNAL | | | | performed at [facility];888 | g/dL | LAB | | | | [address];[place] | | | | | | [address] | | | | + + + + + + | Hematocrit, | 29.3 (L)Comment: Testing | 34.0 - 46.0 % | EXTERNAL | | | POC | performed at [facility];[address] | | LAB | | | | [address];[place] | | | | | | [address] | | | | + + + + + + | MCV | 88.5Comment: Testing | 80.0 - 100.0 fl | EXTERNAL | | | | performed at [facility];[address] | | LAB | | | | [address];[place] | | | | | | [address] | | | | + + + + + + | MCH | 29.1Comment: Testing | 27.0 - 34.0 pg | EXTERNAL | | | | performed at [facility];[address] | | LAB | | | | [address];[place] | | | | | | [address] | | | | + + + + + + | MCHC | 32.9Comment: Testing | 32.0 - 35.5 | EXTERNAL | | | | performed at [facility];888 | g/dL | LAB | | | | [address];[place] | | | | | | [address] | | | | + + + + + + | RDW-CV | 45.9Comment: Testing | 37 - 53 fl | EXTERNAL | | | | performed at [facility];[address] | | LAB | | | | [address];[place] | | | | | | [address] | | | | + + + + + + | Platelet | 155Comment: Testing | 150 - 400 K/uL | EXTERNAL | | | Count | performed at [facility];[address] | | LAB | | | Plasma | [address];[place] | | | | | | [address] | | | | + + + + + + | MPV | 8.4Comment: Testing | fl | EXTERNAL | | | | performed at [facility];[address] | | LAB | | | | [address];[place] | | | | | | [address] | | | | + + + + + + | Differentia | MANUALComment: Testing | | EXTERNAL | | | l Type | performed at [facility];[address] | | LAB | | | | [address];[place] | | | | | | [address] | | | | + + + + + + | Nucleated | 2 (H)Comment: Testing | /100WBC | EXTERNAL | | | Red Blood | performed at [facility];[address] | | LAB | | | Cells | [address];[place] | | | | | | [address] | | | | + + + + + + | Segmented | 69Comment: Testing | % | EXTERNAL | | | Neutrophils | performed at [facility];[address] | | LAB | | | Manual | [address];[place] | | | | | | [address] | | | | + + + + + + | % Bands | 7Comment: Testing | % | EXTERNAL | | | | performed at [facility];[address] | | LAB | | | | [address];[place] | | | | | | [address] | | | | + + + + + + | % | 4Comment: Testing | % | EXTERNAL | | | Metamyelocy | performed at [facility];[address] | | LAB | | | petros | [address];[place] | | | | | | [address] | | | | + + + + + + | % | 2Comment: Testing | % | EXTERNAL | | | Myelocytes | performed at [facility];[address] | | LAB | | | | [address];[place] | | | | | | [address] | | | | + + + + + + | Lymphocytes | 10Comment: Testing | % | EXTERNAL | | | Manual | performed at [facility];[address] | | LAB | | | | [address];[place] | | | | | | [address] | | | | + + + + + + | Monocytes | 8Comment: Testing | % | EXTERNAL | | | Manual | performed at [facility];[address] | | LAB | | | | [address];[place] | | | | | | [address] | | | | + + + + + + | Absolute | 21.7 (H)Comment: Testing | 1.9 - 7.4 K/uL | EXTERNAL | | | Neutrophils | performed at [facility];[address] | | LAB | | | | [address];[place] | | | | | | [address] | | | | + + + + + + | Bands | 2.2 (H)Comment: Testing | 0 - 0.2 K/uL | EXTERNAL | | | Manual | performed at [facility];[address] | | LAB | | | | [address];[place] | | | | | | [address] | | | | + + + + + + | Absolute | 1.3 (H)Comment: Testing | K/uL | EXTERNAL | | | Metamyelocy | performed at [facility];[address] | | LAB | | | petros | [address];[place] | | | | | | [address] | | | | + + + + + + | Absolute | 0.6 (H)Comment: Testing | K/uL | EXTERNAL | | | Myelocytes | performed at [facility];[address] | | LAB | | | | [address];[place] | | | | | | [address] | | | | + + + + + + | Absolute | 3.1Comment: Testing | 1.0 - 3.9 K/uL | EXTERNAL | | | Lymphocytes | performed at [facility];[address] | | LAB | | | | [address];[place] | | | | | | [address] | | | | + + + + + + | Absolute | 2.5 (H)Comment: Testing | 0 - 0.8 K/uL | EXTERNAL | | | Monocytes | performed at [facility];[address] | | LAB | | | | [address];[place] | | | | | | [address] | | | | + + + + + + | RBC | 1+Comment: POLYNORMAL | | EXTERNAL | | | Morphology | PLT MORPHTesting | | LAB | | | | performed at [facility];[address] | | | | | | [address];[place] | | | | | | [address] | | | | | | | [...] EXTERNAL | | | | performed at [facility];888 | mmol/L | LAB | | | | [address];[place] | | | | | | [address] | | | | + + + [...] EXTERNAL | | | | performed at [facility];[address] | | LAB | | | | [address];[place] | | | | | | [address] | | | | + + + + + + | PH ART | 7.438Comment: Testing | 7.350 - 7.450 | EXTERNAL | | | | performed at [facility];[address] | | LAB | | | | [address];[place] | | | | | | [address] | | | | + + + + + + | PCO2 ART | 31 (L)Comment: Testing | 35 - 45 mmHg | EXTERNAL | | | | performed at [facility];[address] | | LAB | | | | [address];[place] | | | | | | [address] | | | | + + + + + + | PO2 ART | 115 (H)Comment: Testing | 80 - 105 mmHg | EXTERNAL | | | | performed at [facility];[address] | | LAB | | | | [address];[place] | | | | | | [address] | | | | + + + + + + | HCO3 ART | 21 (L)Comment: Testing | 22 - 26 mmol/L | EXTERNAL | | | | performed at [facility];[address] | | LAB | | | | [address];[place] | | | | | | [address] | | | | + + + + + + | POC | 22 (L)Comment: Testing | 23 - 27 mEq/L | EXTERNAL | | | APPEARANCE | performed at [facility];[address] | | LAB | | | UA | [address];[place] | | | | | | [address] | | | | + + + + + + | Base | 3 (H)Comment: Testing | 0.0 - 2.0 | EXTERNAL | | | deficit | performed at [facility];888 | mmol/L | LAB | | | | [address];[place] | | | | | | [address] | | | | + + + + + + | O2 SAT ART | 99 (H)Comment: Testing | 95 - 98 % | EXTERNAL | | | | performed at [facility];[address] | | LAB | | | | [address];[place] | | | | | | [address] | | | | + + + + + + | Sodium, POC | 149 (H)Comment: Testing | 135 - 145 mEq/L | EXTERNAL | | | | performed at [facility];[address] | | LAB | | | | [address];[place] | | | | | | [address] | | | | + + + + + + | Potassium, | 4.3Comment: Testing | 3.5 - 5.0 mEq/L | EXTERNAL | | | POC | performed at [facility];[address] | | LAB | | | | [address];[place] | | | | | | [address] | | | | + + + + + + | Ionized | 0.98 (L)Comment: Testing | 1.12 - 1.32 | EXTERNAL | | | Calcium, | performed at [facility];888 | mmol/L | LAB | | | POC | [address];[place] | | | | | | [address] | | | | + + + + + + | Glucose, | 52 (L)Comment: Testing | 65 - 99 mg/dL | EXTERNAL | | | POC | performed at [facility];[address] | | LAB | | | | [address];[place] | | | | | | [address] | | | | + + + + + + | Hematocrit, | 23 (LL)Comment: Testing | 35.0 - 46.0 % | EXTERNAL | | | POC | performed at [facility];[address] | | LAB | | | | [address];[place] | | | | | | [address] | | | | + + + + + + | Hemoglobin, | 7.8 (LL)Comment: Testing | 11.6 - 15.5 | EXTERNAL | | | POC | performed at [facility];888 | g/dL | LAB | | | | [address];[place] | | | | | | [address] | | | | + + + + + + | Comment, | Tidal Volume = | | EXTERNAL | | | POC | 460Comment: Peep = 8Resp | | LAB | | | | Rate = 16Testing | | | | | | performed at [facility];[address] | | | | | | [address];[place], [place] | | | | | | [address] | | | | + + + [...] | | | Fingerstick | performed at [facility];[address] | | LAB | | | | [address];[place] | | | | | | [address] | | | | + + + [...] Conversion - 11/24/2018 6:38 AM PDT MACKENZIE [id number] years FemaleCT | | HEAD WO CONTRAST04/22/2014 [...] | | | Fingerstick | performed at [facility];[address] | | LAB | | | | [address];[place] | | | | | | [address] | | | | + + + [...] | | | Fingerstick | performed at [facility];[address] | | LAB | | | | [address];[place], [place] | | | | | | [address] | | | | + + + [...] EXTERNAL | | | | performed at [facility];888 | mmol/L | LAB | | | | [address];[place], [place] | | | | | | [address] | | | | + + + [...] EXTERNAL | | | | performed at [facility] | | LAB | | | | [address];[place] | | | | | | [address] | | | | + + + [...] EXTERNAL | | | | performed at [facility];[address] | | LAB | | | | [address];[place], [place] | | | | | | [address] | | | | + + + [...] | | | | | | ACUTE AR RESULT READ | | | | | | BACK BY:NAHUN Asher/RUDI AT | | | | | | 2112 SAMTesting | | | | | | performed at [facility];[address] | | | | | | [address];[place], [place] | | | | | | [address] | | | | + + + [...] | | | Patient | performed at [facility];[address] | | LAB | | | | [address];[place] | | | | | | [address] | | | | + + + [...] | | | | | performed at [facility] | | | | | | [facility];[place], [place] | | | | | | [address] [...] EXTERNAL | | | | performed at [facility];[address] | | LAB | | | | [address];[place], [place] | | | | | | [address] | | | | + + + [...] ON | | | | | | [id number] performed | | | | | | at [facility];[address];[place] [address] | | | | + + + + + + | RED CELL | 2.58 (L)Comment: Testing | 3.70 - 5.10 | EXTERNAL | | | COUNT | performed at [facility];888 | M/uL | LAB | | | | [address];[place] | | | | | | [address] | | | | + + + + + + | Hgb | 7.3 (L)Comment: Testing | 11.3 - 15.5 | EXTERNAL | | | | performed at [facility];888 | g/dL | LAB | | | | [address];[place] | | | | | | [address] | | | | + + + + + + | Hematocrit, | 22.1 (L)Comment: Testing | 34.0 - 46.0 % | EXTERNAL | | | POC | performed at [facility];[address] | | LAB | | | | [address];[place] | | | | | | [address] | | | | + + + + + + | MCV | 85.8Comment: Testing | 80.0 - 100.0 fl | EXTERNAL | | | | performed at [facility];[address] | | LAB | | | | [address];[place] | | | | | | [address] | | | | + + + + + + | MCH | 28.5Comment: Testing | 27.0 - 34.0 pg | EXTERNAL | | | | performed at [facility];[address] | | LAB | | | | [address];[place] | | | | | | [address] | | | | + + + + + + | MCHC | 33.2Comment: Testing | 32.0 - 35.5 | EXTERNAL | | | | performed at [facility];888 | g/dL | LAB | | | | [address];[place] | | | | | | [address] | | | | + + + + + + | RDW-CV | 43.3Comment: Testing | 37 - 53 fl | EXTERNAL | | | | performed at [facility];[address] | | LAB | | | | [address];[place] | | | | | | [address] | | | | + + + + + + | Platelet | 197Comment: Testing | 150 - 400 K/uL | EXTERNAL | | | Count | performed at [facility];[address] | | LAB | | | Plasma | [address];[place] | | | | | | [address] | | | | + + + + + + | MPV | 7.4Comment: Testing | fl | EXTERNAL | | | | performed at [facility];[address] | | LAB | | | | [address];[place] | | | | | | [address] | | | | + + + + + + | Differentia | MANUALComment: Testing | | EXTERNAL | | | l Type | performed at [facility];[address] | | LAB | | | | [address];[place] | | | | | | [address] | | | | + + + + + + | Nucleated | 6 (H)Comment: Testing | /100WBC | EXTERNAL | | | Red Blood | performed at [facility];[address] | | LAB | | | Cells | [address];[place] | | | | | | [address] | | | | + + + + + + | Segmented | 69Comment: Testing | % | EXTERNAL | | | Neutrophils | performed at [facility];[address] | | LAB | | | Manual | [address];[place] | | | | | | [address] | | | | + + + + + + | % Bands | 7Comment: Testing | % | EXTERNAL | | | | performed at [facility];[address] | | LAB | | | | [address];[place] | | | | | | [address] | | | | + + + + + + | % | 2Comment: Testing | % | EXTERNAL | | | Metamyelocy | performed at [facility];[address] | | LAB | | | petros | [address];[place] | | | | | | [address] | | | | + + + + + + | % | 1Comment: Testing | % | EXTERNAL | | | Myelocytes | performed at [facility];888 | | LAB | | | | [address];[place] | | | | | | [address] | | | | + + + + + + | Lymphocytes | 14Comment: Testing | % | EXTERNAL | | | Manual | performed at [facility];888 | | LAB | | | | [address];[place] | | | | | | [address] | | | | + + + + + + | Monocytes | 6Comment: Testing | % | EXTERNAL | | | Manual | performed at [facility];888 | | LAB | | | | [address];[place] | | | | | | [address] | | | | + + + + + + | Eosinophils | 1Comment: Testing | % | EXTERNAL | | | Manual | performed at [facility];888 | | LAB | | | | [address];[place] | | | | | | [address] | | | | + + + + + + | Absolute | 21.3 (H)Comment: Testing | 1.9 - 7.4 K/uL | EXTERNAL | | | Neutrophils | performed at [facility];888 | | LAB | | | | [address];[place] | | | | | | [address] | | | | + + + + + + | Bands | 2.2 (H)Comment: Testing | 0 - 0.2 K/uL | EXTERNAL | | | Manual | performed at [facility];888 | | LAB | | | | [address];[place] | | | | | | [address] | | | | + + + + + + | Absolute | 0.6 (H)Comment: Testing | K/uL | EXTERNAL | | | Metamyelocy | performed at [facility];888 | | LAB | | | petros | [address];[place] | | | | | | [address] | | | | + + + + + + | Absolute | 0.3 (H)Comment: Testing | K/uL | EXTERNAL | | | Myelocytes | performed at [facility];[address] | | LAB | | | | [address];[place] | | | | | | [address] | | | | + + + + + + | Absolute | 4.3 (H)Comment: Testing | 1.0 - 3.9 K/uL | EXTERNAL | | | Lymphocytes | performed at [facility];[address] | | LAB | | | | [address];[place] | | | | | | [address] | | | | + + + + + + | Absolute | 1.8 (H)Comment: Testing | 0 - 0.8 K/uL | EXTERNAL | | | Monocytes | performed at [facility];[address] | | LAB | | | | [address];[place] | | | | | | [address] | | | | + + + + + + | Absolute | 0.3Comment: Testing | 0 - 0.5 K/uL | EXTERNAL | | | Eosinophils | performed at [facility];[address] | | LAB | | | | [address];[place] | | | | | | [address] | | | | + + + + + + | Platelet | ADEQUATEComment: Testing | | EXTERNAL | | | Estimate | performed at [facility];888 | | LAB | | | | [address];[place] | | | | | | [address] | | | | + + + + + + | RBC | 1+Comment: GIANT | | EXTERNAL | | | Morphology | PLATELETS1+POLYTesting | | LAB | | | | performed at [facility];888 | | | | | | [address];[place] | | | | | | [address] | | | | | |Testing performed at [facility];[address];[place] [address] | | | | | | | [...] EXTERNAL | | | | performed at [facility];888 | | LAB | | | | [address];[place], [place] | | | | | | [address] | | | | + + + [...] EXTERNAL | | | | performed at [facility];888 | | LAB | | | | [address];[place] | | | | | | [address] | | | | + + + [...] EXTERNAL | | | | performed at [facility];888 | mmol/L | LAB | | | | [address];[place] | | | | | | [address] | | | | + + + + + + | K | 4.0Comment: Testing | 3.5 - 4.9 | EXTERNAL | | | | performed at [facility];888 | mmol/L | LAB | | | | [address];[place] | | | | | | [address] | | | | + + + + + + | Cl | 112 (H)Comment: Testing | 99 - 109 mmol/L | EXTERNAL | | | | performed at [facility];[address] | | LAB | | | | [address];[place] | | | | | | [address] | | | | + + + + + + | CO2 | 30Comment: Testing | 23 - 32 mmol/L | EXTERNAL | | | | performed at [facility];[address] | | LAB | | | | [address];[place] | | | | | | [address] | | | | + + + + + + | Anion Gap | 12Comment: Testing | 5 - 20 mmol/L | EXTERNAL | | | | performed at [facility];[address] | | LAB | | | | [address];[place] | | | | | | [address] | | | | + + + + + + | Glucose, | 67Comment: Testing | 65 - 99 mg/dL | EXTERNAL | | | Fasting | performed at [facility];[address] | | LAB | | | | [address];[place] | | | | | | [address] | | | | + + + + + + | BUN | 37 (H)Comment: Testing | 8 - 25 mg/dL | EXTERNAL | | | | performed at [facility];[address] | | LAB | | | | [address];[place] | | | | | | [address] | | | | + + + + + + | Creatinine | 1.34 (H)Comment: Testing | 0.50 - 1.00 | EXTERNAL | | | | performed at [facility];888 | mg/dL | LAB | | | | [address];[place] | | | | | | [address] | | | | + + + + + + | BUN/Creatin | 28Comment: Testing | | EXTERNAL | | | ine Ratio | performed at [facility];[address] | | LAB | | | | [address];[place] | | | | | | [address] | | | | + + + + + + | Calcium | 7.9 (L)Comment: Testing | 8.5 - 10.2 | EXTERNAL | | | | performed at [facility];888 | mg/dL | LAB | | | | [address];[place] | | | | | | [address] | | | | + + + [...] | | | | | | at [facility];[address];[place] [address] | | | | + + + [...] | | | Fingerstick | performed at [facility];[address] | | LAB | | | | [address];[place], [place] | | | | | | [address] | | | | + + + [...] | | | Fingerstick | performed at [facility];[address] | | LAB | | | | [address];[place] | | | | | | [address] | | | | + + + [...] | | | Fingerstick | performed at [facility];[address] | | LAB | | | | [address];[place], [place] | | | | | | [address] | | | | + + + [...] ON | | | | | | [id number] performed | | | | | | at [facility];[address] [place] [address] | | | | | | [address];[place] [address] | | | | + + + + + + | RED CELL | 2.91 (L)Comment: Testing | 3.70 - 5.10 | EXTERNAL | | | COUNT | performed at [facility];888 | M/uL | LAB | | | | [address];[place] | | | | | | [address] | | | | + + + + + + | Hgb | 8.4 (L)Comment: Testing | 11.3 - 15.5 | EXTERNAL | | | | performed at [facility];888 | g/dL | LAB | | | | [address];[place] | | | | | | [address] | | | | + + + + + + | Hematocrit, | 24.8 (L)Comment: Testing | 34.0 - 46.0 % | EXTERNAL | | | POC | performed at [facility];[address] | | LAB | | | | [address];[place] | | | | | | [address] | | | | + + + + + + | MCV | 85.1Comment: Testing | 80.0 - 100.0 fl | EXTERNAL | | | | performed at [facility];[address] | | LAB | | | | [address];[place] | | | | | | [address] | | | | + + + + + + | MCH | 28.9Comment: Testing | 27.0 - 34.0 pg | EXTERNAL | | | | performed at [facility];[address] | | LAB | | | | [address];[place] | | | | | | [address] | | | | + + + + + + | MCHC | 34.0Comment: Testing | 32.0 - 35.5 | EXTERNAL | | | | performed at [facility];888 | g/dL | LAB | | | | [address];[place] | | | | | | [address] | | | | + + + + + + | RDW-CV | 42.9Comment: Testing | 37 - 53 fl | EXTERNAL | | | | performed at [facility];[address] | | LAB | | | | [address];[place] | | | | | | [address] | | | | + + + + + + | Platelet | 228Comment: Testing | 150 - 400 K/uL | EXTERNAL | | | Count | performed at [facility];[address] | | LAB | | | Plasma | [address];[place] | | | | | | [address] | | | | + + + + + + | MPV | 7.2Comment: Testing | fl | EXTERNAL | | | | performed at [facility];[address] | | LAB | | | | [address];[place] | | | | | | [address] | | | | + + + + + + | Differentia | MANUALComment: Testing | | EXTERNAL | | | l Type | performed at [facility];[address] | | LAB | | | | [address];[place] | | | | | | [address] | | | | + + + + + + | Segmented | 69Comment: Testing | % | EXTERNAL | | | Neutrophils | performed at [facility];[address] | | LAB | | | Manual | [address];[place] | | | | | | [address] | | | | + + + + + + | % Bands | 14Comment: Testing | % | EXTERNAL | | | | performed at [facility];[address] | | LAB | | | | [address];[place] | | | | | | [address] | | | | + + + + + + | % | 3Comment: Testing | % | EXTERNAL | | | Metamyelocy | performed at [facility];[address] | | LAB | | | petros | [address];[place] | | | | | | [address] | | | | + + + + + + | % | 1Comment: Testing | % | EXTERNAL | | | Myelocytes | performed at [facility];[address] | | LAB | | | | [address];[place] | | | | | | [address] | | | | + + + + + + | Lymphocytes | 9Comment: Testing | % | EXTERNAL | | | Manual | performed at [facility];[address] | | LAB | | | | [address];[place] | | | | | | [address] | | | | + + + + + + | Monocytes | 4Comment: Testing | % | EXTERNAL | | | Manual | performed at [facility];[address] | | LAB | | | | [address];[place] | | | | | | [address] | | | | + + + + + + | Absolute | 23.2 (H)Comment: Testing | 1.9 - 7.4 K/uL | EXTERNAL | | | Neutrophils | performed at [facility];[address] | | LAB | | | | [address];[place] | | | | | | [address] | | | | + + + + + + | Bands | 4.7 (H)Comment: Testing | 0 - 0.2 K/uL | EXTERNAL | | | Manual | performed at [facility];[address] | | LAB | | | | [address];[place] | | | | | | [address] | | | | + + + + + + | Absolute | 1.0 (H)Comment: Testing | K/uL | EXTERNAL | | | Metamyelocy | performed at [facility];[address] | | LAB | | | petros | [address];[place] | | | | | | [address] | | | | + + + + + + | Absolute | 0.3 (H)Comment: Testing | K/uL | EXTERNAL | | | Myelocytes | performed at [facility];[address] | | LAB | | | | [address];[place] | | | | | | [address] | | | | + + + + + + | Absolute | 3.0Comment: Testing | 1.0 - 3.9 K/uL | EXTERNAL | | | Lymphocytes | performed at [facility];[address] | | LAB | | | | [address];[place] | | | | | | [address] | | | | + + + + + + | Absolute | 1.3 (H)Comment: Testing | 0 - 0.8 K/uL | EXTERNAL | | | Monocytes | performed at [facility];[address] | | LAB | | | | [address];[place] | | | | | | [address] | | | | + + + + + + | Platelet | ADEQUATEComment: Testing | | EXTERNAL | | | Estimate | performed at [facility];[address] | | LAB | | | | [address];[place] | | | | | | [address] | | | | + + + + + + | RBC | 1+Comment: TOXIC | | EXTERNAL | | | Morphology | GRANULATION1+POLYTesting | | LAB | | | | performed at [facility];[address] | | | | | | [address];[place] | | | | | | [address] | | | | | |Testing performed at [facility];[address];[place] [address] | | | | | | | | | | + + + + + + | Nucleated | 4 (H)Comment: Testing | /100WBC | EXTERNAL | | | Red Blood | performed at [facility];[address] | | LAB | | | Cells | [address];[place] | | | | | | [address] | | | | + + + [...] EXTERNAL | | | | performed at [facility];888 | mmol/L | LAB | | | | [address];[place], [place] | | | | | | [address] | | | | + + + [...] | | | | | performed at [facility];[address] | | | | | | [address];[place], [place] | | | | | | [address] | | | | + + + [...] EXTERNAL | | | | performed at [facility];[address] | | LAB | | | | [address];[place] | | | | | | [address] | | | | + + + + + + | PH ART | 7.358Comment: Testing | 7.350 - 7.450 | EXTERNAL | | | | performed at [facility];[address] | | LAB | | | | [address];[place] | | | | | | [address] | | | | + + + + + + | PCO2 ART | 37Comment: Testing | 35 - 45 mmHg | EXTERNAL | | | | performed at [facility];[address] | | LAB | | | | [address];[place] | | | | | | [address] | | | | + + + + + + | PO2 ART | 84Comment: Testing | 80 - 105 mmHg | EXTERNAL | | | | performed at [facility];[address] | | LAB | | | | [address];[place] | | | | | | [address] | | | | + + + + + + | HCO3 ART | 21 (L)Comment: Testing | 22 - 26 mmol/L | EXTERNAL | | | | performed at [facility];[address] | | LAB | | | | [address];[place] | | | | | | [address] | | | | + + + + + + | POC | 22 (L)Comment: Testing | 23 - 27 mEq/L | EXTERNAL | | | APPEARANCE | performed at [facility];[address] | | LAB | | | UA | [address];[place] | | | | | | [address] | | | | + + + + + + | Base | 5 (H)Comment: Testing | 0.0 - 2.0 | EXTERNAL | | | deficit | performed at [facility];888 | mmol/L | LAB | | | | [address];[place] | | | | | | [address] | | | | + + + + + + | O2 SAT ART | 96Comment: Testing | 95 - 98 % | EXTERNAL | | | | performed at [facility];[address] | | LAB | | | | [address];[place] | | | | | | [address] | | | | + + + + + + | Sodium, POC | 150 (H)Comment: Testing | 135 - 145 mEq/L | EXTERNAL | | | | performed at [facility];[address] | | LAB | | | | [address];[place] | | | | | | [address] | | | | + + + + + + | Potassium, | 3.7Comment: Testing | 3.5 - 5.0 mEq/L | EXTERNAL | | | POC | performed at [facility];[address] | | LAB | | | | [address];[place] | | | | | | [address] | | | | + + + + + + | Ionized | 1.01 (L)Comment: Testing | 1.12 - 1.32 | EXTERNAL | | | Calcium, | performed at [facility];888 | mmol/L | LAB | | | POC | [address];[place] | | | | | | [address] | | | | + + + + + + | Glucose, | 195 (H)Comment: Testing | 65 - 99 mg/dL | EXTERNAL | | | POC | performed at [facility];[address] | | LAB | | | | [address];[place] | | | | | | [address] | | | | + + + + + + | Hematocrit, | 23 (LL)Comment: Testing | 35.0 - 46.0 % | EXTERNAL | | | POC | performed at [facility];[address] | | LAB | | | | [address];[place] | | | | | | [address] | | | | + + + + + + | Hemoglobin, | 7.8 (LL)Comment: Testing | 11.6 - 15.5 | EXTERNAL | | | POC | performed at [facility];888 | g/dL | LAB | | | | [address];[place], [place] | | | | | | [address] | | | | + + + + + + | Comment, | Tidal Volume = | | EXTERNAL | | | POC | 16Comment: Peep = 8Resp | | LAB | | | | Rate = 46Testing | | | | | | performed at [facility];[address] | | | | | | [address];[place] | | | | | | [address] | | | | + + + [...] | | | Patient | performed at [facility];[address] | | LAB | | | | [address];[place] | | | | | | [address] | | | | + + + [...] | | | | | performed at [facility];[address] | | | | | | [facility];[place], [place] | | | | | | [...] EXTERNAL | | | | performed at [facility];[address] | | LAB | | | | [address];[place] | | | | | | [address] | | | | + + + [...] ON | | | | | | [id number] performed | | | | | | at [facility];[address];[place] [address] | | | | + + + + + + | RED CELL | 2.99 (L)Comment: Testing | 3.70 - 5.10 | EXTERNAL | | | COUNT | performed at [facility];888 | M/uL | LAB | | | | [address];[place] | | | | | | [address] | | | | + + + + + + | Hgb | 8.3 (L)Comment: Testing | 11.3 - 15.5 | EXTERNAL | | | | performed at [facility];888 | g/dL | LAB | | | | [address];[place] | | | | | | [address] | | | | + + + + + + | Hematocrit, | 26.5 (L)Comment: Testing | 34.0 - 46.0 % | EXTERNAL | | | POC | performed at [facility];[address] | | LAB | | | | [address];[place] | | | | | | [address] | | | | + + + + + + | MCV | 88.6Comment: Testing | 80.0 - 100.0 fl | EXTERNAL | | | | performed at [facility];[address] | | LAB | | | | [address];[place] | | | | | | [address] | | | | + + + + + + | MCH | 27.8Comment: Testing | 27.0 - 34.0 pg | EXTERNAL | | | | performed at [facility];[address] | | LAB | | | | [address];[place] | | | | | | [address] | | | | + + + + + + | MCHC | 31.4 (L)Comment: Testing | 32.0 - 35.5 | EXTERNAL | | | | performed at [facility];888 | g/dL | LAB | | | | [address];[place] | | | | | | [address] | | | | + + + + + + | RDW-CV | 47.3Comment: Testing | 37 - 53 fl | EXTERNAL | | | | performed at [facility];[address] | | LAB | | | | [address];[place] | | | | | | [address] | | | | + + + + + + | Platelet | 78 (L)Comment: Testing | 150 - 400 K/uL | EXTERNAL | | | Count | performed at [facility];[address] | | LAB | | | Plasma | [address];[place] | | | | | | [address] | | | | + + + + + + | MPV | 8.7Comment: Testing | fl | EXTERNAL | | | | performed at [facility];[address] | | LAB | | | | [address];[place] | | | | | | [address] | | | | + + + + + + | Differentia | MANUALComment: Testing | | EXTERNAL | | | l Type | performed at [facility];[address] | | LAB | | | | [address];[place] | | | | | | [address] | | | | + + + + + + | Nucleated | 2 (H)Comment: Testing | /100WBC | EXTERNAL | | | Red Blood | performed at [facility];[address] | | LAB | | | Cells | [address];[place] | | | | | | [address] | | | | + + + + + + | Segmented | 76Comment: Testing | % | EXTERNAL | | | Neutrophils | performed at [facility];[address] | | LAB | | | Manual | [address];[place] | | | | | | [address] | | | | + + + + + + | % Bands | 9Comment: Testing | % | EXTERNAL | | | | performed at [facility];[address] | | LAB | | | | [address];[place] | | | | | | [address] | | | | + + + + + + | % | 3Comment: Testing | % | EXTERNAL | | | Metamyelocy | performed at [facility];[address] | | LAB | | | petros | [address];[place] | | | | | | [address] | | | | + + + + + + | % | 1Comment: Testing | % | EXTERNAL | | | Myelocytes | performed at [facility];[address] | | LAB | | | | [address];[place] | | | | | | [address] | | | | + + + + + + | Lymphocytes | 2Comment: Testing | % | EXTERNAL | | | Manual | performed at [facility];[address] | | LAB | | | | [address];[place] | | | | | | [address] | | | | + + + + + + | Monocytes | 9Comment: Testing | % | EXTERNAL | | | Manual | performed at [facility];[address] | | LAB | | | | [address];[place] | | | | | | [address] | | | | + + + + + + | Absolute | 26.7 (H)Comment: Testing | 1.9 - 7.4 K/uL | EXTERNAL | | | Neutrophils | performed at [facility];888 | | LAB | | | | [address];[place] | | | | | | [address] | | | | + + + + + + | Bands | 3.2 (H)Comment: Testing | 0 - 0.2 K/uL | EXTERNAL | | | Manual | performed at [facility];[address] | | LAB | | | | [address];[place] | | | | | | [address] | | | | + + + + + + | Absolute | 1.1 (H)Comment: Testing | K/uL | EXTERNAL | | | Metamyelocy | performed at [facility];[address] | | LAB | | | petros | [address];[place] | | | | | | [address] | | | | + + + + + + | Absolute | 0.4 (H)Comment: Testing | K/uL | EXTERNAL | | | Myelocytes | performed at [facility];[address] | | LAB | | | | [address];[place] | | | | | | [address] | | | | + + + + + + | Absolute | 0.7 (L)Comment: Testing | 1.0 - 3.9 K/uL | EXTERNAL | | | Lymphocytes | performed at [facility];[address] | | LAB | | | | [address];[place] | | | | | | [address] | | | | + + + + + + | Absolute | 3.2 (H)Comment: Testing | 0 - 0.8 K/uL | EXTERNAL | | | Monocytes | performed at [facility];[address] | | LAB | | | | [address];[place] | | | | | | [address] | | | | + + + + + + | Platelet | DECREASEDComment: | | EXTERNAL | | | Estimate | Testing performed at | | LAB | | | | [facility];[address];[place] [address] | | | | + + + + + + | RBC | 1+Comment: GIANT | | EXTERNAL | | | Morphology | PLATELETS1+POLY1+HYPO1+A | | LAB | | | | NISOTesting performed at | | | | | | [facility];[address];[place] [address] | | | | | |1+ | | | | | |HYPO | | | | | |1+ | | | | | |ANISO | | | | | |Testing performed at [facility];[address] [facility];[place] [address] | | | | | | | | | | + + + + + + | Differentia | SLIDE REFERRED TO | | EXTERNAL | | | l Comments | PATHOLOGIST FOR REVIEW | | LAB | | | | AND COMMENTComment: | | | | | | Testing performed at | | | | | | [facility];[address] [facility] | | | | | | [place] [address] | | | | + + + [...] EXTERNAL | | | | performed at [facility];888 | mmol/L | LAB | | | | [address];[place] | | | | | | [address] | | | | + + + + + + | K | 3.9Comment: Testing | 3.5 - 4.9 | EXTERNAL | | | | performed at [facility];888 | mmol/L | LAB | | | | [address];[place] | | | | | | [address] | | | | + + + + + + | Cl | 114 (H)Comment: Testing | 99 - 109 mmol/L | EXTERNAL | | | | performed at [facility];[address] | | LAB | | | | [address];[place] | | | | | | [address] | | | | + + + + + + | CO2 | 21 (L)Comment: Testing | 23 - 32 mmol/L | EXTERNAL | | | | performed at [facility];[address] | | LAB | | | | [address];[place] | | | | | | [address] | | | | + + + + + + | Anion Gap | 23 (H)Comment: Testing | 5 - 20 mmol/L | EXTERNAL | | | | performed at [facility];[address] | | LAB | | | | [address];[place] | | | | | | [address] | | | | + + + + + + | Glucose, | 192 (H)Comment: Testing | 65 - 99 mg/dL | EXTERNAL | | | Fasting | performed at [facility];[address] | | LAB | | | | [address];[place] | | | | | | [address] | | | | + + + + + + | BUN | 34 (H)Comment: Testing | 8 - 25 mg/dL | EXTERNAL | | | | performed at [facility];[address] | | LAB | | | | [address];[place] | | | | | | [address] | | | | + + + + + + | Creatinine | 1.47 (H)Comment: Testing | 0.50 - 1.00 | EXTERNAL | | | | performed at [facility];888 | mg/dL | LAB | | | | [address];[place] | | | | | | [address] | | | | + + + + + + | BUN/Creatin | 23Comment: Testing | | EXTERNAL | | | ine Ratio | performed at [facility];[address] | | LAB | | | | [address];[place] | | | | | | [address] | | | | + + + + + + | Calcium | 6.7 (L)Comment: Testing | 8.5 - 10.2 | EXTERNAL | | | | performed at [facility];888 | mg/dL | LAB | | | | [address];[place] | | | | | | [address] | | | | + + + [...] | | | | | | at [facility];[address];[place] [address] | | | | + + + [...] EXTERNAL | | | | performed at [facility];888 | mmol/L | LAB | | | | [address];[place], [place] | | | | | | [address] | | | | + + + [...] | | | Fingerstick | performed at [facility] | | LAB | | | | [address];[place] | | | | | | [address] | | | | + + + [...] EXTERNAL | | | | performed at [facility];[address] | | LAB | | | | [facility];[place], [place] | | | | | | [address] | | | | + + + + + + | PH ART | 7.140 ()Comment: | 7.350 - 7.450 | EXTERNAL | | | | Testing performed at | | LAB | | | | [facility];[address];[place] [address] | | | | + + + + + + | PCO2 ART | 38Comment: Testing | 35 - 45 mmHg | EXTERNAL | | | | performed at [facility];[address] | | LAB | | | | [address];[place] | | | | | | [address] | | | | + + + + + + | PO2 ART | 104Comment: Testing | 80 - 105 mmHg | EXTERNAL | | | | performed at [facility];[address] | | LAB | | | | [address];[place] | | | | | | [address] | | | | + + + + + + | HCO3 ART | 13 (L)Comment: Testing | 22 - 26 mmol/L | EXTERNAL | | | | performed at [facility];[address] | | LAB | | | | [address];[place] | | | | | | [address] | | | | + + + + + + | POC | 14 (L)Comment: Testing | 23 - 27 mEq/L | EXTERNAL | | | APPEARANCE | performed at [facility];[address] | | LAB | | | UA | [address];[place] | | | | | | [address] | | | | + + + + + + | Base | 16 (H)Comment: Testing | 0.0 - 2.0 | EXTERNAL | | | deficit | performed at [facility];[address] | mmol/L | LAB | | | | [address];[place] | | | | | | [address] | | | | + + + + + + | O2 SAT ART | 96Comment: Testing | 95 - 98 % | EXTERNAL | | | | performed at [facility];[address] | | LAB | | | [address];[place] | | | | | | [address] | | | | + + + + + + | Sodium, POC | 146 (H)Comment: Testing | 135 - 145 mEq/L | EXTERNAL | | | | performed at [facility];[address] | | LAB | | | | [address];[place] | | | | | | [address] | | | | + + + + + + | Potassium, | 5.0Comment: Testing | 3.5 - 5.0 mEq/L | EXTERNAL | | | POC | performed at [facility];[address] | | LAB | | | | [address];[place] | | | | | | [address] | | | | + + + + + + | Ionized | 1.15Comment: Testing | 1.12 - 1.32 | EXTERNAL | | | Calcium, | performed at [facility];888 | mmol/L | LAB | | | POC | [address];[place] | | | | | | [address] | | | | + + + + + + | Glucose, | 265 (H)Comment: Testing | 65 - 99 mg/dL | EXTERNAL | | | POC | performed at [facility];[address] | | LAB | | | [address];[place] | | | | | | [address] | | | | + + + + + + | Hematocrit, | <10 (LL)Comment: Testing | 35.0 - 46.0 % | EXTERNAL | | | POC | performed at [facility];[address] | | LAB | | | | [address];[place] | | | | | | [address] | | | | + + + + + + | Comment, | Tidal Volume = | | EXTERNAL | | | POC | 16Comment: Peep = 8Resp | | LAB | | | | Rate = 46Testing | | | | | | performed at [facility];[address] | | | | | | [address];[place] | | | | | | [address] | | | | + + + [...] | | | Fingerstick | performed at [facility];[address] | | LAB | | | | [address];[place] | | | | | | [address] | | | | + + + [...] | | | Fingerstick | performed at [facility];[address] | | LAB | | | | [address];[place], [place] | | | | | | [address] | | | | + + + [...] EXTERNAL | | | | performed at [facility];[address] | | LAB | | | | [address];[place] | | | | | | [address] | | | | + + + [...] EXTERNAL | | | | performed at [facility];[address] | | LAB | | | | [address];[place], [place] | | | | | | [address] | | | | + + + [...] | | | | | | at [facility];[address] [place] [address] | | | | | | [facility];[place] [address] | | | | + + + [...] | | | Patient | performed at [facility];[address] | | LAB | | | | [address];[place] | | | | | | [address] | | | | + + + [...] | | | | | performed at [facility] | | | | | | [address];[place], [place] | | | | | | [address] [...] EXTERNAL | | | | performed at [facility];[address] | | LAB | | | | [address];[place] | | | | | | [address] | | | | + + + + + + | RED CELL | 3.56 (L)Comment: Testing | 3.70 - 5.10 | EXTERNAL | | | COUNT | performed at [facility];888 | M/uL | LAB | | | | [address];[place] | | | | | | [address] | | | | + + + + + + | Hgb | 8.7 (L)Comment: Testing | 11.3 - 15.5 | EXTERNAL | | | | performed at [facility];888 | g/dL | LAB | | | | [address];[place] | | | | | | [address] | | | | + + + + + + | Hematocrit, | 29.0 (L)Comment: Testing | 34.0 - 46.0 % | EXTERNAL | | | POC | performed at [facility];888 | | LAB | | | | [address];[place] | | | | | | [address] | | | | + + + + + + | MCV | 81.3Comment: Testing | 80.0 - 100.0 fl | EXTERNAL | | | | performed at [facility];888 | | LAB | | | | [address];[place] | | | | | | [address] | | | | + + + + + + | MCH | 24.4 (L)Comment: Testing | 27.0 - 34.0 pg | EXTERNAL | | | | performed at [facility];888 | | LAB | | | | [address];[place] | | | | | | [address] | | | | + + + + + + | MCHC | 30.0 (L)Comment: Testing | 32.0 - 35.5 | EXTERNAL | | | | performed at [facility];888 | g/dL | LAB | | | | [address];[place] | | | | | | [address] | | | | + + + + + + | RDW-CV | 63.9 (H)Comment: Testing | 37 - 53 fl | EXTERNAL | | | | performed at [facility];888 | | LAB | | | | [address];[place] | | | | | | [address] | | | | + + + + + + | Platelet | 330Comment: Testing | 150 - 400 K/uL | EXTERNAL | | | Count | performed at [facility];888 | | LAB | | | Plasma | [address];[place] | | | | | | [address] | | | | + + + + + + | MPV | 8.6Comment: Testing | fl | EXTERNAL | | | | performed at [facility];888 | | LAB | | | | [address];[place] | | | | | | [address] | | | | + + + + + + | Differentia | MANUALComment: Testing | | EXTERNAL | | | l Type | performed at [facility];888 | | LAB | | | | [address];[place] | | | | | | [address] | | | | + + + + + + | Segmented | 77Comment: Testing | % | EXTERNAL | | | Neutrophils | performed at [facility];888 | | LAB | | | Manual | [address];[place] | | | | | | [address] | | | | + + + + + + | % Bands | 4Comment: Testing | % | EXTERNAL | | | | performed at [facility];888 | | LAB | | | | [address];[place] | | | | | | [address] | | | | + + + + + + | % | 3Comment: Testing | % | EXTERNAL | | | Metamyelocy | performed at [facility];888 | | LAB | | | petros | [address];[place] | | | | | | [address] | | | | + + + + + + | % | 1Comment: Testing | % | EXTERNAL | | | Myelocytes | performed at [facility];888 | | LAB | | | | [address];[place] | | | | | | [address] | | | | + + + + + + | Lymphocytes | 10Comment: Testing | % | EXTERNAL | | | Manual | performed at [facility];888 | | LAB | | | | [address];[place] | | | | | | [address] | | | | + + + + + + | Monocytes | 5Comment: Testing | % | EXTERNAL | | | Manual | performed at [facility];888 | | LAB | | | | [address];[place] | | | | | | [address] | | | | + + + + + + | Absolute | 17.8 (H)Comment: Testing | 1.9 - 7.4 K/uL | EXTERNAL | | | Neutrophils | performed at [facility];888 | | LAB | | | | [address];[place] | | | | | | [address] | | | | + + + + + + | Bands | 0.9 (H)Comment: Testing | 0 - 0.2 K/uL | EXTERNAL | | | Manual | performed at [facility];888 | | LAB | | | | [address];[place] | | | | | | [address] | | | | + + + + + + | Absolute | 0.7 (H)Comment: Testing | K/uL | EXTERNAL | | | Metamyelocy | performed at [facility];888 | | LAB | | | petros | [address];[place] | | | | | | [address] | | | | + + + + + + | Absolute | 0.2 (H)Comment: Testing | K/uL | EXTERNAL | | | Myelocytes | performed at [facility];888 | | LAB | | | | [address];[place] | | | | | | [address] | | | | + + + + + + | Absolute | 2.3Comment: Testing | 1.0 - 3.9 K/uL | EXTERNAL | | | Lymphocytes | performed at [facility];888 | | LAB | | | | [address];[place] | | | | | | [address] | | | | + + + + + + | Absolute | 1.2 (H)Comment: Testing | 0 - 0.8 K/uL | EXTERNAL | | | Monocytes | performed at [facility];888 | | LAB | | | | [facility];[place] | | | | | | [address] | | | | + + + + + + | RBC | 2+Comment: | | EXTERNAL | | | Morphology | HYPO3+ANISO1+POIK1+TARGE | | LAB | | | | TNORMAL PLT MORPHTesting | | | | | | performed at [facility];888 | | | | | | [facility] | | | | | | [address] | | | | | |POIK | | | | | |1+ | | | | | |TARGET | | | | | |NORMAL PLT MORPH | | | | | |Testing performed at [facility];[address] [facility];[place] [address] | | | | | | | [...] Gertrude, | | | | | | [place] [address] | | | | + + + [...] | | | | performed at [facility], [address] | | LAB | | | | [address], | | | | | | [place] [address] | | | | + + + [...] EXTERNAL | | | | performed at [facility];888 | | LAB | | | | [address];[place], [place] | | | | | | [address] | | | | + + + [...] | | | | | [place] [address] | | | | + + + [...] | | | | | [place] [address] | | | | + + + + + + | Albumin | 2.4 (L)Comment: Testing | 3.6 - 5.0 g/dL | EXTERNAL | | | | performed at [facility], [address] | | LAB | | | | [address], | | | | | | [place] [address] | | | | + + + + + + | Bilirubin | 0.5Comment: Testing | 0.1 - 1.5 mg/dL | EXTERNAL | | | Total | performed at [facility], [address] | | LAB | | | | [address], | | | | | | [place] [address] | | | | + + + + + + | Bilirubin | 0.1Comment: Testing | 0.0 - 0.3 mg/dL | EXTERNAL | | | Direct | performed at [facility], [address] | | LAB | | | | [address], | | | | | | [place] [address] | | | | + + + + + + | ALP, | 131 (H)Comment: Testing | 35 - 115 U/L | EXTERNAL | | | External | performed at [facility], [address] | | LAB | | | | [address], | | | | | | [place] [address] | | | | + + + + + + | AST | 20Comment: Testing | 10 - 45 U/L | EXTERNAL | | | | performed at [facility], [address] | | LAB | | | | [address], | | | | | | [place] [address] | | | | + + + + + + | ALT | 11Comment: Testing | 10 - 65 U/L | EXTERNAL | | | | performed at [facility], [address] | | LAB | | | | [address], | | | | | | [place] [address] | | | | + + + [...] | | | | | [place] [address] | | | | + + + + + + | Triglycerid | 151 (H)Comment: Testing | mg/dL | EXTERNAL | | | es | performed at [facility], [address] | | LAB | | | | [address], | | | | | | [place] [address] | | | | + + + + + + | HDL | 58Comment: Testing | mg/dL | EXTERNAL | | | | performed at [facility], [address] | | LAB | | | | [address], | | | | | | [place] [address] | | | | + + + + + + | LDL | 125 (H)Comment: Testing | mg/dL | EXTERNAL | | | Cholesterol | performed at [facility], [address] | | LAB | | | , | [address], | | | | | Calculated, | [place] [address] | | | | | External | [...] | | | | | [place] [address] | | | | + + + + + + | K | 4.0Comment: Testing | 3.5 - 4.9 | EXTERNAL | | | | performed at [facility], [address] | mmol/L | LAB | | | | [address], | | | | | | [place] [address] | | | | + + + + + + | Cl | 107Comment: Testing | 99 - 109 mmol/L | EXTERNAL | | | | performed at [facility], [address] | | LAB | | | | [address], | | | | | | [place] [address] | | | | + + + + + + | CO2 | 29Comment: Testing | 23 - 32 mmol/L | EXTERNAL | | | | performed at [facility], [address] | | LAB | | | | [address], | | | | | | [place] [address] | | | | + + + + + + | Anion Gap | 13Comment: Testing | 5 - 20 mmol/L | EXTERNAL | | | | performed at [facility], [address] | | LAB | | | | [address], | | | | | | [place] [address] | | | | + + + + + + | Glucose, | 123 (H)Comment: Testing | 65 - 99 mg/dL | EXTERNAL | | | Fasting | performed at [facility], [address] | | LAB | | | | [address], | | | | | | [place] [address] | | | | + + + + + + | BUN | 30 (H)Comment: Testing | 8 - 25 mg/dL | EXTERNAL | | | | performed at [facility], [address] | | LAB | | | | [address], | | | | | | [place] [address] | | | | + + + + + + | Creatinine | 0.64Comment: Testing | 0.50 - 1.00 | EXTERNAL | | | | performed at [facility], [address] | mg/dL | LAB | | | | [address], | | | | | | [place] [address] | | | | + + + + + + | BUN/Creatin | 47Comment: Testing | | EXTERNAL | | | ine Ratio | performed at [facility], [address] | | LAB | | | | [address], | | | | | | [place] [address] | | | | + + + + + + | Calcium | 8.8Comment: Testing | 8.5 - 10.2 | EXTERNAL | | | | performed at [facility], [address] | mg/dL | LAB | | | | [address], | | | | | | [place] [address] | | | | + + + [...] | | | | | at [facility], [address] | | | | | | [address], | | | | | | [place] [address] | | | | + + + [...] AC | | | Testing performed at [facility];888 | | | [facility];[place] [address] CULTURE | | | NO GROWTH | | | Testing performed at [facility], [address] [facility], [place], [place] | | | [address] | | + + + + +---------+ [...] AC | | | Testing performed at [facility];888 | | | [facility];[place] [address] CULTURE | | | NO GROWTH | | | Testing performed at [facility], [address] [place], [place] | | | [address] | | + + + + +---------+ [...] EXTERNAL | | | | performed at [facility];888 | mmol/L | LAB | | | | [address];[place], [place] | | | | | | [address] | | | | + + + [...] | | | Fingerstick | performed at [facility];888 | | LAB | | | | [address];[place] | | | | | | [address] | | | | + + + [...] EXTERNAL | | | | performed at [facility];888 | | LAB | | | | [address];[place] | | | | | | [address] | | | | + + + + + + | RED CELL | 3.11 (L)Comment: Testing | 3.70 - 5.10 | EXTERNAL | | | COUNT | performed at [facility];888 | M/uL | LAB | | | | [address];[place] | | | | | | [address] | | | | + + + + + + | Hgb | 7.6 (L)Comment: Testing | 11.3 - 15.5 | EXTERNAL | | | | performed at [facility];888 | g/dL | LAB | | | | [address];[place] | | | | | | [address] | | | | + + + + + + | Hematocrit, | 25.7 (L)Comment: Testing | 34.0 - 46.0 % | EXTERNAL | | | POC | performed at [facility];888 | | LAB | | | | [address];[place] | | | | | | [address] | | | | + + + + + + | MCV | 82.8Comment: Testing | 80.0 - 100.0 fl | EXTERNAL | | | | performed at [facility];[address] | | LAB | | | | [address];[place] | | | | | | [address] | | | | + + + + + + | MCH | 24.6 (L)Comment: Testing | 27.0 - 34.0 pg | EXTERNAL | | | | performed at [facility];888 | | LAB | | | | [address];[place] | | | | | | [address] | | | | + + + + + + | MCHC | 29.7 (L)Comment: Testing | 32.0 - 35.5 | EXTERNAL | | | | performed at [facility];888 | g/dL | LAB | | | | [address];[place] | | | | | | [address] | | | | + + + + + + | RDW-CV | 66.5 (H)Comment: Testing | 37 - 53 fl | EXTERNAL | | | | performed at [facility];[address] | | LAB | | | | [address];[place] | | | | | | [address] | | | | + + + + + + | Platelet | 318Comment: Testing | 150 - 400 K/uL | EXTERNAL | | | Count | performed at [facility];888 | | LAB | | | Plasma | [address];[place] | | | | | | [address] | | | | + + + + + + | MPV | 9.1Comment: Testing | fl | EXTERNAL | | | | performed at [facility];[address] | | LAB | | | | [address];[place] | | | | | | [address] | | | | + + + + + + | Differentia | MANUALComment: Testing | | EXTERNAL | | | l Type | performed at [facility];[address] | | LAB | | | | [address];[place] | | | | | | [address] | | | | + + + + + + | Nucleated | 1 (H)Comment: Testing | /100WBC | EXTERNAL | | | Red Blood | performed at [facility];888 | | LAB | | | Cells | [address];[place] | | | | | | [address] | | | | + + + + + + | Segmented | 70Comment: Testing | % | EXTERNAL | | | Neutrophils | performed at [facility];[address] | | LAB | | | Manual | [address];[place] | | | | | | [address] | | | | + + + + + + | % Bands | 4Comment: Testing | % | EXTERNAL | | | | performed at [facility];[address] | | LAB | | | | [address];[place] | | | | | | [address] | | | | + + + + + + | % | 2Comment: Testing | % | EXTERNAL | | | Metamyelocy | performed at [facility];888 | | LAB | | | petros | [address];[place] | | | | | | [address] | | | | + + + + + + | % | 1Comment: Testing | % | EXTERNAL | | | Myelocytes | performed at [facility];888 | | LAB | | | | [address];[place] | | | | | | [address] | | | | + + + + + + | Lymphocytes | 14Comment: Testing | % | EXTERNAL | | | Manual | performed at [facility];888 | | LAB | | | | [address];[place] | | | | | | [address] | | | | + + + + + + | Monocytes | 9Comment: Testing | % | EXTERNAL | | | Manual | performed at [facility];888 | | LAB | | | | [address];[place] | | | | | | [address] | | | | + + + + + + | Absolute | 15.0 (H)Comment: Testing | 1.9 - 7.4 K/uL | EXTERNAL | | | Neutrophils | performed at [facility];888 | | LAB | | | | [address];[place] | | | | | | [address] | | | | + + + + + + | Bands | 0.9 (H)Comment: Testing | 0 - 0.2 K/uL | EXTERNAL | | | Manual | performed at [facility];888 | | LAB | | | | [address];[place] | | | | | | [address] | | | | + + + + + + | Absolute | 0.4 (H)Comment: Testing | K/uL | EXTERNAL | | | Metamyelocy | performed at [facility];888 | | LAB | | | petros | [address];[place] | | | | | | [address] | | | | + + + + + + | Absolute | 0.2 (H)Comment: Testing | K/uL | EXTERNAL | | | Myelocytes | performed at [facility];[address] | | LAB | | | | [address];[place] | | | | | | [address] | | | | + + + + + + | Absolute | 3.0Comment: Testing | 1.0 - 3.9 K/uL | EXTERNAL | | | Lymphocytes | performed at [facility];888 | | LAB | | | | [address];[place] | | | | | | [address] | | | | + + + + + + | Absolute | 1.9 (H)Comment: Testing | 0 - 0.8 K/uL | EXTERNAL | | | Monocytes | performed at [facility];888 | | LAB | | | | [address];[place] | | | | | | [address] | | | | + + + + + + | Platelet | ADEQUATEComment: Testing | | EXTERNAL | | | Estimate | performed at [facility];888 | | LAB | | | | [address];[place] | | | | | | [address] | | | | + + + + + + | RBC | 3+Comment: | | EXTERNAL | | | Morphology | ANISO1+HYPO1+TARGETNORMA | | LAB | | | | L PLT MORPHTesting | | | | | | performed at [facility];[address] | | | | | | [address];[place], [place] | | | | | | [address] | | | | | |TARGET | | | | | |NORMAL PLT MORPH | | | | | |Testing performed at [facility];[address];[place] [address] | | | | | | | [...] EXTERNAL | | | | performed at [facility];[address] | | LAB | | | | [address];[place] | | | | | | [address] | | | | + + + [...] EXTERNAL | | | | performed at [facility];[address] | | LAB | | | | [address];[place], [place] | | | | | | [address] | | | | + + + [...] EXTERNAL | | | | performed at [facility];888 | mmol/L | LAB | | | | [address];[place] | | | | | | [address] | | | | + + + + + + | K | 4.2Comment: Testing | 3.5 - 4.9 | EXTERNAL | | | | performed at [facility];888 | mmol/L | LAB | | | | [address];[place] | | | | | | [address] | | | | + + + + + + | Cl | 110 (H)Comment: Testing | 99 - 109 mmol/L | EXTERNAL | | | | performed at [facility];[address] | | LAB | | | | [address];[place] | | | | | | [address] | | | | + + + + + + | CO2 | 35 (H)Comment: Testing | 23 - 32 mmol/L | EXTERNAL | | | | performed at [facility];888 | | LAB | | | | [address];[place] | | | | | | [address] | | | | + + + + + + | Anion Gap | 8Comment: Testing | 5 - 20 mmol/L | EXTERNAL | | | | performed at [facility];[address] | | LAB | | | | [address];[place] | | | | | | [address] | | | | + + + + + + | Glucose, | 120 (H)Comment: Testing | 65 - 99 mg/dL | EXTERNAL | | | Fasting | performed at [facility];[address] | | LAB | | | | [address];[place] | | | | | | [address] | | | | + + + + + + | BUN | 30 (H)Comment: Testing | 8 - 25 mg/dL | EXTERNAL | | | | performed at [facility];[address] | | LAB | | | | [address];[place] | | | | | | [address] | | | | + + + + + + | Creatinine | 0.87Comment: Testing | 0.50 - 1.00 | EXTERNAL | | | | performed at [facility];888 | mg/dL | LAB | | | | [address];[place] | | | | | | [address] | | | | + + + + + + | BUN/Creatin | 35Comment: Testing | | EXTERNAL | | | ine Ratio | performed at [facility];[address] | | LAB | | | | [address];[place] | | | | | | [address] | | | | + + + + + + | Calcium | 8.0 (L)Comment: Testing | 8.5 - 10.2 | EXTERNAL | | | | performed at [facility];888 | mg/dL | LAB | | | | [address];[place] | | | | | | [address] | | | | + + + [...] | | | | | | at [facility];[address] [facility] | | | | | | Blvd;[place] [address] | | | | + + + [...] EXTERNAL | | | | performed at [facility];888 | mmol/L | LAB | | | | [address];[place] | | | | | | [address] | | | | + + + [...] | | | Random | performed at [facility] | | LAB | | | | [address];[place], [place] | | | | | | [address] | | | | + + + [...] | | | Fingerstick | performed at [facility];[address] | | LAB | | | [address];[place], [place] | | | | | | [address] | | | | + + + [...] | | | Patient | performed at [facility];[address] | | LAB | | | | [address];[place], [place] | | | | | | [address] | | | | + + + [...] | | | Fingerstick | performed at [facility];[address] | | LAB | | | | [address];[place] | | | | | | [address] | | | | + + + [...] [employer]oper Conversion - 11/24/2018 6:38 AM AMARI [id number] yearsXR CHEST 1 | | VIEW04/21/2014 5:52 [...] | | | | | performed at [facility];[address] | | | | | | [facility];[place], [place] | | | | | | [address] | | | | + + + [...] | | | | performed at [facility], [address] | | LAB | | | | [address], | | | | | | [place] [address] | | | | + + +---- + + + | RED CELL | 3.26 (L)Comment: Testing | 3.7 0 - 5.10 | EXTERNAL | | | COUNT | performed at [facility], [address] | M/u L | LAB | | | | [address], | | | | | | [place] [address] | | | | + + +---- + + + | Hgb | 8.2 (L)Comment: Testing | 11. 3 - 15.5 | EXTERNAL | | | | performed at [facility], [address] | g/d L | LAB | | | | [address], | | | | | | [place] [address] | | | | + + +---- + + + | Hematocrit, | 27.1 (L)Comment: Testing | 34. 0 - 46.0 % | EXTERNAL | | | POC | performed at [facility], [address] | | LAB | | | | [address], | | | | | | [place] [address] | | | | + + +---- + + + | MCV | 83.1Comment: Testing | 80. 0 - 100.0 fl | EXTERNAL | | | | performed at [facility], [address] | | LAB | | | | [address], | | | | | | [place] [address] | | | | + + +---- + + + | MCH | 25.0 (L)Comment: Testing | 27. 0 - 34.0 pg | EXTERNAL | | | | performed at [facility], [address] | | LAB | | | | [address], | | | | | | [place] [address] | | | | + + +---- + + + | MCHC | 30.1 (L)Comment: Testing | 32. 0 - 35.5 | EXTERNAL | | | | performed at [facility], [address] | g/d L | LAB | | | | [address], | | | | | | [place] [address] | | | | + + +---- + + + | RDW-CV | 67.4 (H)Comment: Testing | 37 - 53 fl | EXTERNAL | | | | performed at [facility], [address] | | LAB | | | | [address], | | | | | | [place] [address] | | | | + + +---- + + + | Platelet | 340Comment: Testing | 150 - 400 K/uL | EXTERNAL | | | Count | performed at [facility], [address] | | LAB | | | Plasma | [address], | | | | | | [place] [address] | | | | + + +---- + + + | MPV | 9.2Comment: Testing | fl | EXTERNAL | | | | performed at [facility], [address] | | LAB | | | | [address], | | | | | | [place] [address] | | | | + + +---- + + + | Differentia | MANUALComment: Testing | | EXTERNAL | | | l Type | performed at [facility], [address] | | LAB | | | | [address], | | | | | | [place] [address] | | | | + + +---- + + + | Nucleated | 1 (H)Comment: Testing | /10 0WBC | EXTERNAL | | | Red Blood | performed at [facility], [address] | | LAB | | | Cells | [address], | | | | | | [place] [address] | | | | + + +---- + + + | Segmented | 80Comment: Testing | % | EXTERNAL | | | Neutrophils | performed at [facility], [address] | | LAB | | | Manual | [address], | | | | | | [place] [address] | | | | + + +---- + + + | % | 2Comment: Testing | % | EXTERNAL | | | Metamyelocy | performed at [facility], [address] | | LAB | | | petros | [address], | | | | | | [place] [address] | | | | + + +---- + + + | % | 1Comment: Testing | % | EXTERNAL | | | Myelocytes | performed at [facility], [address] | | LAB | | | | [address], | | | | | | [place] [address] | | | | + + +---- + + + | Lymphocytes | 7Comment: Testing | % | EXTERNAL | | | Manual | performed at [facility], [address] | | LAB | | | | [address], | | | | | | [place] [address] | | | | + + +---- + + + | Monocytes | 10Comment: Testing | % | EXTERNAL | | | Manual | performed at [facility], [address] | | LAB | | | | [address], | | | | | | [place] [address] | | | | + + +---- + + + | Absolute | 15.4 (H)Comment: Testing | 1.9 - 7.4 K/uL | EXTERNAL | | | Neutrophils | performed at [facility], [address] | | LAB | | | | [address], | | | | | | [place] [address] | | | | + + +---- + + + | Absolute | 0.4 (H)Comment: Testing | K/u L | EXTERNAL | | | Metamyelocy | performed at [facility], [address] | | LAB | | | petros | [address], | | | | | | [place] [address] | | | | + + +---- + + + | Absolute | 0.2 (H)Comment: Testing | K/u L | EXTERNAL | | | Myelocytes | performed at [facility], [address] | | LAB | | | | [address], | | | | | | [place] [address] | | | | + + +---- + + + | Absolute | 1.3Comment: Testing | 1.0 - 3.9 K/uL | EXTERNAL | | | Lymphocytes | performed at [facility], [address] | | LAB | | | | [address], | | | | | | [place] [address] | | | | + + +---- + + + | Absolute | 1.9 (H)Comment: Testing | 0 - 0.8 K/uL | EXTERNAL | | | Monocytes | performed at [facility], [address] | | LAB | | | | [facility], | | | | | | [place] [address] | | | | + + +---- + + + | RBC | 3+Comment: | | EXTERNAL | | | Morphology | ANISO1+TARGETNORMAL PLT | | LAB | | | | MORPHTesting performed | | | | | | at [facility], [address] | | | | | | [facility], | | | | | | [place] [address] | | | | | |Testing performed at [facility], [address] [facility], [place] [address] | | | | | | | [...] | | | | performed at [facility], [address] | | LAB | | | | [address], | | | | | | [place] [address] | | | | + + + [...] | | | | performed at [facility], [address] | | LAB | | | | [address], | | | | | | [place] [address] | | | | + + + [...] | | | | | [place] [address] | | | | + + + + + + | K | 4.1Comment: Testing | 3.5 - 4.9 | EXTERNAL | | | | performed at [facility], [address] | mmol/L | LAB | | | | [address], | | | | | | [place] [place] [address] | | | | + + + + + + | Cl | 110 (H)Comment: Testing | 99 - 109 mmol/L | EXTERNAL | | | | performed at [facility], [address] | | LAB | | | | [address], | | | | | | [place] [address] | | | | + + + + + + | CO2 | 34 (H)Comment: Testing | 23 - 32 mmol/L | EXTERNAL | | | | performed at [facility], [address] | | LAB | | | | [address], | | | | | | [place] [address] | | | | + + + + + + | Anion Gap | 7Comment: Testing | 5 - 20 mmol/L | EXTERNAL | | | | performed at [facility], [address] | | LAB | | | | [address], | | | | | | [place] [address] | | | | + + + + + + | Glucose, | 133 (H)Comment: Testing | 65 - 99 mg/dL | EXTERNAL | | | Fasting | performed at [facility], [address] | | LAB | | | | [address], | | | | | | [place] [address] | | | | + + + + + + | BUN | 29 (H)Comment: Testing | 8 - 25 mg/dL | EXTERNAL | | | | performed at [facility], [address] | | LAB | | | | [address], | | | | | | [place] [address] | | | | + + + + + + | Creatinine | 0.61Comment: Testing | 0.50 - 1.00 | EXTERNAL | | | | performed at [facility], [address] | mg/dL | LAB | | | | [address], | | | | | | [place] [address] | | | | + + + + + + | BUN/Creatin | 48Comment: Testing | | EXTERNAL | | | ine Ratio | performed at [facility], [address] | | LAB | | | | [address], | | | | | | [place] [address] | | | | + + + + + + | Calcium | 8.3 (L)Comment: Testing | 8.5 - 10.2 | EXTERNAL | | | | performed at [facility], [address] | mg/dL | LAB | | | | [address], | | | | | | [place] [address] | | | | + + + [...] | | | | | at [facility], [address] | | | | | | [address], | | | | | | [place] [address] | | | | + + + [...] | | | Patient | performed at [facility];[address] | | LAB | | | | [address];[place], [place] | | | | | | [address] | | | | + + + [...] EXTERNAL | | | | performed at [facility];[address] | mmol/L | LAB | | | | [address];[place], [place] | | | | | | [address] | | | | + + + [...] | | | Fingerstick | performed at [facility];[address] | | LAB | | | | [address];[place], [place] | | | | | | [address] | | | | + + + [...] | | | | | performed at [facility];[address] | | | | | | [address];[place] | | | | | | [address] | | | | + + + [...] | | | | | performed at [facility];[address] | | | | | | [address];[place] | | | | | | [address] | | | | + + + [...] EXTERNAL | | | | performed at [facility];[address] | mmol/L | LAB | | | | [address];[place] | | | | | | [address] | | | | + + + [...] EXTERNAL | | | | performed at [facility];[address] | | LAB | | | | [address];[place] | | | | | | [address] | | | | + + + [...] | | | Fingerstick | performed at [facility];[address] | | LAB | | | | [address];[place], [place] | | | | | | [address] | | | | + + + [...] EXTERNAL | | | | performed at [facility];888 | mmol/L | LAB | | | | [address];[place] | | | | | | [address] | | | | + + + [...] EXTERNAL | | | | performed at [facility];[address] | | LAB | | | | [facility], [place] | | | | | | [address] | | | | + + + [...] EXTERNAL | | | | performed at [facility];[address] | | LAB | | | | [address];[place] | | | | | | [address] | | | | + + + [...] | | | Fingerstick | performed at [facility];[address] | | LAB | | | | [address];[place] | | | | | | [address] [...] | 1.05 D-E Excursion: 1.76 cm E-F Crook: 0.10 m/s EPSS: 0.24 | | | [...] TR Vmax: 1.63 m/s | | | Operations Welder: CORDELIA Authenticated by: JOSE KO MD Report [...] BPMR-R: 756.65 msLAAs | | A4C: 23.48 [id number] A-L A4C: 64.39 mlLAESV MOD A4C: 63.04 mlLALs A4C: 7.27 cmAo | | Diam: 3.18 cmAV Cusp: 1.94 cmLA Diam: 3.37 cmLA/Ao: 1.05D-E Excursion: 1.76 | | cmE-F Crook: 0.10 m/sEPSS: 0.24 cmHR: 76.38 BPMAV maxP.32 mmHgAV meanPG: | | 3.53 mmHgAV Vmax: 1.25 m/Christine Vmean: 0.89 m/Christine VTI: 20.35 cmAVA Vmax: 2.34 | | cm2AVA (VTI): 2.64 gf9LAOJ Dopp: 2.21 l/zstp9HIHJ Dopp: 4.15 l/minHR: 77.06 | | BPMLVOT [...] maxP.67 mmHgTR Vmax: 1.63 m/s | | Operations Welder: Rileyhenticated by: Stevan ASKEW Date/Time: 04-20-2014 18:02:29 [...] | |D-E Excursion: 1.76 cm | |E-F Crook: 0.10 m/s | |EPSS: 0.24 cm | [...] |TR Vmax: 1.63 m/s | | | |Operations Welder: GD | |Authenticated by: JOSE KO MD [...] | LAB | | | | BY LanxREAD BACK RESULTS | | | | | | VERIFIEDTesting | | | | | | performed at [facility];[address] | | | | | | [address];[place], [place] | | | | | | [address] | | | | + + + [...] | | | | | [place] [address] | | | | + + + [...] | | | | performed at [facility], [address] | | LAB | | | | [address], | | | | | | [place] [address] | | | | + + + [...] EXTERNAL | | | | performed at [facility] | | LAB | | | | [address];[place] | | | | | | [address] | | | | + + + [...] | | | Fingerstick | performed at [facility];[address] | | LAB | | | | [address];[place] | | | | | | [address] | | | | + + + [...] | | | | | [place] [address] | | | | + + +---- + + + | RED CELL | 3.57 (L)Comment: Testing | 3.7 0 - 5.10 | EXTERNAL | | | COUNT | performed at [facility], [address] | [address]/u L | LAB | | | | [address], | | | | | | [place] [address] | | | | + + +---- + + + | Hgb | 8.9 (L)Comment: Testing | 11. 3 - 15.5 | EXTERNAL | | | | performed at [facility], [address] | g/d L | LAB | | | | [address], | | | | | | [place] [address] | | | | + + +---- + + + | Hematocrit, | 29.8 (L)Comment: Testing | 34. 0 - 46.0 % | EXTERNAL | | | POC | performed at [facility], [address] | | LAB | | | | [address], | | | | | | [place] [address] | | | | + + +---- + + + | MCV | 83.5Comment: Testing | 80. 0 - 100.0 fl | EXTERNAL | | | | performed at [facility], [address] | | LAB | | | | [address], | | | | | | [place] [address] | | | | + + +---- + + + | MCH | 24.9 (L)Comment: Testing | 27. 0 - 34.0 pg | EXTERNAL | | | | performed at [facility], [address] | | LAB | | | | [address], | | | | | | [place] [address] | | | | + + +---- + + + | MCHC | 29.9 (L)Comment: Testing | 32. 0 - 35.5 | EXTERNAL | | | | performed at [facility], [address] | g/d L | LAB | | | | [address], | | | | | | [place] [address] | | | | + + +---- + + + | RDW-CV | 67.8 (H)Comment: Testing | 37 - 53 fl | EXTERNAL | | | | performed at [facility], [address] | | LAB | | | | [address], | | | | | | [place] [address] | | | | + + +---- + + + | Platelet | 373Comment: Testing | 150 - 400 K/uL | EXTERNAL | | | Count | performed at [facility], [address] | | LAB | | | Plasma | [address], | | | | | | [place] [address] | | | | + + +---- + + + | MPV | 9.3Comment: Testing | fl | EXTERNAL | | | | performed at [facility], [address] | | LAB | | | | [address], | | | | | | [place] [address] | | | | + + +---- + + + | Differentia | MANUALComment: Testing | | EXTERNAL | | | l Type | performed at [facility], [address] | | LAB | | | | [address], | | | | | | [place] [address] | | | | + + +---- + + + | Nucleated | 3 (H)Comment: Testing | /10 0WBC | EXTERNAL | | | Red Blood | performed at [facility], [address] | | LAB | | | Cells | [address], | | | | | | [place] [address] | | | | + + +---- + + + | Segmented | 71Comment: Testing | % | EXTERNAL | | | Neutrophils | performed at [facility], [address] | | LAB | | | Manual | [address], | | | | | | [place] [address] | | | | + + +---- + + + | % Bands | 2Comment: Testing | % | EXTERNAL | | | | performed at [facility], [address] | | LAB | | | | [address], | | | | | | [place] [address] | | | | + + +---- + + + | Lymphocytes | 17Comment: Testing | % | EXTERNAL | | | Manual | performed at [facility], [address] | | LAB | | | | [address], | | | | | | [place] [address] | | | | + + +---- + + + | Monocytes | 9Comment: Testing | % | EXTERNAL | | | Manual | performed at [facility], [address] | | LAB | | | | [address], | | | | | | [place] [address] | | | | + + +---- + + + | Eosinophils | 1Comment: Testing | % | EXTERNAL | | | Manual | performed at [facility], [address] | | LAB | | | | [address], | | | | | | [place] [address] | | | | + + +---- + + + | Absolute | 15.2 (H)Comment: Testing | 1.9 - 7.4 K/uL | EXTERNAL | | | Neutrophils | performed at [facility], [address] | | LAB | | | | [address], | | | | | | [place] [address] | | | | + + +---- + + + | Bands | 0.4 (H)Comment: Testing | 0 - 0.2 K/uL | EXTERNAL | | | Manual | performed at [facility], [address] | | LAB | | | | [address], | | | | | | [place] [address] | | | | + + +---- + + + | Absolute | 3.6Comment: Testing | 1.0 - 3.9 K/uL | EXTERNAL | | | Lymphocytes | performed at [facility], [address] | | LAB | | | | [address], | | | | | | [place] [address] | | | | + + +---- + + + | Absolute | 1.9 (H)Comment: Testing | 0 - 0.8 K/uL | EXTERNAL | | | Monocytes | performed at [facility], [address] | | LAB | | | | [address], | | | | | | [place] [address] | | | | + + +---- + + + | Absolute | 0.2Comment: Testing | 0 - 0.5 K/uL | EXTERNAL | | | Eosinophils | performed at [facility], [address] | | LAB | | | | [address], | | | | | | [place] [address] | | | | + + +---- [...] | | | | | [place] [address] | | | | | |1+ | | | | | |MICRO | | | | | |1+ | | | | | |TARGET | | | | | |NORMAL PLT MORPH | | | | | |Testing performed at [facility], [address] [place] [address], [place] [address] | | | | | | | | | | + + +---- + + + | Differentia | SMUDGE CELLSComment: | | EXTERNAL | | | l Comments | Testing performed at | | LAB | | | | [facility], [address] [place] [address] | | | | | | [facility], [place], [place] | | | | | | [address] | | | | + + +---- [...] EXTERNAL | | | | performed at [facility];[address] | mmol/L | LAB | | | | [address];[place] | | | | | | [address] | | | | + + + [...] | | | | | | [place] [address] | | | | + + + + + + | T3, Total | 102Comment: Testing | 80 - 200 ng/dL | EXTERNAL | | | | performed at [facility], [address] | | LAB | | | | [address] | | | | | | [place] [address] | | | | + + + [...] EXTERNAL | | | | performed at [facility];[address] | | LAB | | | | [facility];[place], [place] | | | | | | [address] | | | | + + + [...] | | | | | | at [facility];[address] [facility] | | | | | | [facility];[place] [address] | | | | + + + [...] EXTERNAL | | | | performed at [facility];[address] | | LAB | | | | [address];[place], [place] | | | | | | [address] | | | | + + + [...] | | | | | | ACUTE AR Testing | | | | | | performed at [facility];[address] | | | | | | [address];[place], [place] | | | | | | [address] | | | | + + + [...] [place] | | | | | | [address] | | | | + + + + + + | HEP B | NON REACTIVEComment: | | EXTERNAL | | | SURFACE | Testing performed at | | LAB | | | ANTIBODY | [facility], [address] | | | | | | [place] | | | | | | [address] | | | | + + + + + + | HEP B CORE | NON REACTIVEComment: | | EXTERNAL | | | IgM | Testing performed at | | LAB | | | | [facility], [address] | | | | | | [place] | | | | | | [address] | | | | + + + + + + | HCV Ab | NON REACTIVEComment: | | EXTERNAL | | | | Testing performed at | | LAB | | | | [facility], [address] [facility] | | | | | | [place] | | | | | | [address] | | | | + + + + + + | Hepatitis | No serologic evidence of | | EXTERNAL | | | Interp.: | HAV, HBV, or HCV | | LAB | | | | infection.Comment: | | | | | | Testing performed at | | | | | | [facility], [address] [facility] | | | | | | [place] | | | | | | [address] | | | | + + + [...] | | | | | | P,CHROMATIN, MONTESSORI TODDLER TEACHER, SM | | | | | | MONTESSORI TODDLER TEACHER, SCL-70, CENTROMERE | | | | | | B, SSA, SSB AND SHAZIA-1) | | | | | | WASPERFORMED AND NO | | | | | | AUTOANTIBODIES WERE | | | | | | DETECTED.Testing | | | | | | performed at [facility], [address] | | | | | | [facility] | | | | | | [place] [address] | | | | + + + + + + | ANCA Screen | <1:20Comment: REFERENCE | | EXTERNAL | | | | RANGE: <1:20Testing | | LAB | | | | performed at [facility], [address] | | | | | | [facility] | | | | | [place] [address] | | | | + + + [...] | | | | sting performed at [facility], | | | | | | [address] [facility], | | | | | | [place] [address] | | | | + + + [...] | | | | | | at [facility], [address] | | | | | | [place] | | | | | | [address] | | | | + + + [...] | | | Patient | performed at [facility];[address] | | LAB | | | | [address];[place], [place] | | | | | | [address] | | | | + + + [...] | | | | | performed at [facility] | | | | | | [address] [facility];[place], [place] | | | | | | [address] | | | | + + + [...] | | | FACTOR | performed at [facility], [address] | | LAB | | | | [address], | | | | | | [place] [address] | | | | + + + [...] | | | | performed at [facility], [address] | uIU/mL | LAB | | | | [address], | | | | | | [place] [address] | | | | + + + [...] | | | (REF) | performed at [facility], [address] | | LAB | | | | [address], | | | | | | [place] [address] | | | | + + + [...] | | | | performed at [facility], [address] | mg/dL | LAB | | | | [address], | | | | | | [place] [address] | | | | + + + [...] | | | | performed at [facility], [address] | | LAB | | | | [address], | | | | | | [place] [address] | | | | + + + [...] + + | Hemoglobin | 5.4Comment: The Tajik | 4.0 - 6.0 % | EXTERNAL [...] | | | | performed at [facility], [address] | | | | | | [address], | | | | | | [place] [address] | | | | + + [...] | | | | performed at [facility], [address] | | | | | | [address], | | | | | | [place] [address] | | | | + + + [...] EXTERNAL | | | | performed at [facility];[address] | | LAB | | | | [address];[place], [place] | | | | | | [address] | | | | + + + [...] | | | | | [place] [address] | | | | + + + + + + | Albumin | 2.2 (L)Comment: Testing | 3.6 - 5.0 g/dL | EXTERNAL | | | | performed at [facility], [address] | | LAB | | | [address], | | | | | | [place] [address] | | | | + + + + + + | Bilirubin | 0.5Comment: Testing | 0.1 - 1.5 mg/dL | EXTERNAL | | | Total | performed at [facility], [address] | | LAB | | | | [address], | | | | | | [place] [address] | | | | + + + + + + | Bilirubin | 0.1Comment: Testing | 0.0 - 0.3 mg/dL | EXTERNAL | | | Direct | performed at [facility], [address] | | LAB | | | | [address], | | | | | | [place] [address] | | | | + + + + + + | ALP, | 112Comment: Testing | 35 - 115 U/L | EXTERNAL | | | External | performed at [facility], [address] | | LAB | | | [address], | | | | | | [place] [address] | | | | + + + + + + | AST | 31Comment: Testing | 10 - 45 U/L | EXTERNAL | | | | performed at [facility], [address] | | LAB | | | | [address], | | | | | | [place] [address] | | | | + + + + + + | ALT | 15Comment: Testing | 10 - 65 U/L | EXTERNAL | | | | performed at [facility], [address] | | LAB | | | | [address], | | | | | | [place] [address] | | | | + + + [...] | | | | | [place] [address] | | | | + + + + + + | Triglycerid | 398 (H)Comment: Testing | mg/dL | EXTERNAL | | | es | performed at [facility], [address] | | LAB | | | [address], | | | | | | [place] [address] | | | | + + + + + + | HDL | 48Comment: Testing | mg/dL | EXTERNAL | | | | performed at [facility], [address] | | LAB | | | | [address], | | | | | | [place] [address] | | | | + + + + + + | LDL | 35Comment: Testing | mg/dL | EXTERNAL | | | Cholesterol | performed at [facility], [address] | | LAB | | | , | [address], | | | | | Calculated, | [place] [address] | | | | | External | [...] | | | | | [place] [address] | | | | + + + + + + | K | 3.1 (L)Comment: Testing | 3.5 - 4.9 | EXTERNAL | | | | performed at [facility], [address] | mmol/L | LAB | | | | [address], | | | | | | [place] [address] | | | | + + + + + + | Cl | 108Comment: Testing | 99 - 109 mmol/L | EXTERNAL | | | | performed at [facility], [address] | | LAB | | | [address], | | | | | | [place] [address] | | | | + + + + + + | CO2 | 31Comment: Testing | 23 - 32 mmol/L | EXTERNAL | | | | performed at [facility], [address] | | LAB | | | | [address], | | | | | | [place] [address] | | | | + + + + + + | Anion Gap | 8Comment: Testing | 5 - 20 mmol/L | EXTERNAL | | | | performed at [facility], [address] | | LAB | | | | [address], | | | | | | [place] [address] | | | | + + + + + + | Glucose, | 135 (H)Comment: Testing | 65 - 99 mg/dL | EXTERNAL | | | Fasting | performed at [facility], [address] | | LAB | | | | [address], | | | | | | [place] [address] | | | | + + + + + + | BUN | 25Comment: Testing | 8 - 25 mg/dL | EXTERNAL | | | | performed at [facility], [address] | | LAB | | | | [address], | | | | | | [place] [address] | | | | + + + + + + | Creatinine | 0.58Comment: Testing | 0.50 - 1.00 | EXTERNAL | | | | performed at [facility], [address] | mg/dL | LAB | | | | [address], | | | | | | [place] [address] | | | | + + + + + + | BUN/Creatin | 43Comment: Testing | | EXTERNAL | | | ine Ratio | performed at [facility], [address] | | LAB | | | | [address], | | | | | | [place] [address] | | | | + + + + + + | Calcium | 7.8 (L)Comment: Testing | 8.5 - 10.2 | EXTERNAL | | | | performed at [facility], [address] | mg/dL | LAB | | | | [address], | | | | | | [place] [address] | | | | + + + [...] [address] | | | | | | [address], | | | | | | [place] [address] | | | | + + + [...] ALBICANSAbnormal | | | Testing performed at [facility], [address] [place], [place] | | | [address] | | + + + + +---------+ [...] | | | Fingerstick | performed at [facility];[address] | | LAB | | | | [address] [place] | | | | | | [address] | | | | + + + [...] GROWTH | | | Testing performed at [facility], [address] | | | [place] [address] | | + + + + +---------+ [...] | | tubes are noted on the pot tender image. | | + + + + [...] and endotracheal tubes are noted on the pot tender image. IMPRESSION: 1. No acute | | [...] and endotracheal tubes are noted on the pot tender im age. | | | |IMPRESSION: | [...] PORT | | | Testing performed at [facility];[address];[place] [address] CULTURE | | | NO GROWTH | | | Testing performed at [facility], [address] [facility], [place], [place] | | | [address] | | + + + + +---------+ [...] | | | | | | at [facility], [address] | | | | | | [place] | | | | | | [address] | | | | + + + [...] EXTERNAL | | | | performed at [facility] | | LAB | | | | [address];[place], [place] | | | | | | [address] | | | | + + + [...] LAB | | | | performed at [facility];[address] | | | | | [address];[place], [place] | | | | | | [address] | | | | + + + [...] EXTERNAL | | | | performed at [facility];[address] | mmol/L | LAB | | | | [address];[place] | | | | | | [address] | | | | + + + + + + | K | 4.1Comment: SLT | 3.5 - 4.9 | EXTERNAL | | | | HEMOLYSISTesting | mmol/L | LAB | | | | performed at [facility];[address] | | | | | | [address];[place] | | | | | | [address] | | | | + + + + + + | Cl | 113 (H)Comment: Testing | 99 - 109 mmol/L | EXTERNAL | | | | performed at [facility];[address] | | LAB | | | | [address];[place] | | | | | | [address] | | | | + + + + + + | CO2 | 29Comment: Testing | 23 - 32 mmol/L | EXTERNAL | | | | performed at [facility];[address] | | LAB | | | | [address];[place] | | | | | | [address] | | | | + + + + + + | Anion Gap | 11Comment: Testing | 5 - 20 mmol/L | EXTERNAL | | | | performed at [facility];[address] | | LAB | | | | [address];[place] | | | | | | [address] | | | | + + + + + + | Glucose, | 120 (H)Comment: Testing | 65 - 99 mg/dL | EXTERNAL | | | Fasting | performed at [facility];[address] | | LAB | | | | [address];[place] | | | | | | [address] | | | | + + + + + + | BUN | 25Comment: Testing | 8 - 25 mg/dL | EXTERNAL | | | | performed at [facility];[address] | | LAB | | | | [address];[place] | | | | | | [address] | | | | + + + + + + | Creatinine | 0.72Comment: Testing | 0.50 - 1.00 | EXTERNAL | | | | performed at [facility];888 | mg/dL | LAB | | | | [address];[place] | | | | | | [address] | | | | + + + + + + | BUN/Creatin | 35Comment: Testing | | EXTERNAL | | | ine Ratio | performed at [facility];[address] | | LAB | | | | [address];[place] | | | | | | [address] | | | | + + + + + + | Calcium | 8.3 (L)Comment: Testing | 8.5 - 10.2 | EXTERNAL | | | | performed at [facility];888 | mg/dL | LAB | | | | [address] [facility];[place], [place] | | | | | | [address] | | | | + + + [...] | | | | | | at [facility];[address];[place] [address] | | | | + + + [...] LAC | | | Testing performed at [facility];[address] | | | [facility];[place] [address] CULTURE | | | NO GROWTH | | | Testing performed at [facility], [address] [facility], [place], [place] | | | [address] | | + + + + +---------+ [...] | | | Fingerstick | performed at [facility];[address] | | LAB | | | | [address];[place] | | | | | | [address] [...] | | | | | performed at [facility] | | | | | | [address] [facility];[place], [place] | | | | | | [address] | | | | + + + [...] | | | Fingerstick | performed at [facility];8 | | LAB | | | | [address];[place] | | | | | | [address] | | | | + + + [...] | EXTERNAL LAB | | performed at [facility];[address] [place] [address];[place] [address] 027 NAP1 BI | | | 027 NAP1 BI PRESUMPTIVE NEGATIVE | | | Detection of 027 NAP1 BI strains of C. difficile is presumptive and | | | for epidemiological purposes and not intended to guide or monitor | | | treatment for C. difficile infections. Testing performed at [facility];8 | | | [facility];[place] [address] | | + + + + +---------+ [...] EXTERNAL | | | | performed at [facility];888 | mmol/L | LAB | | | | [address];[place], [place] | | | | | | [address] | | | | + + + [...] EXTERNAL | | | | performed at [facility] | | LAB | | | | [...] EXTERNAL | | | | performed at [facility];[address] | | LAB | | | | [address];[place], [place] | | | | | | [address] | | | | + + + [...] | | | Fingerstick | performed at [facility];[address] | | LAB | | | | [address];[place] | | | | | | [address] | | | | + + + [...] | | | | | performed at [facility];[address] | | | | | | [address];[place], [place] | | | | | | [address] | | | | + + + [...] | | | | performed at [facility], [address] | | LAB | | | | [address], | | | | | | [place] [address] | | | | + + +---- + + + | RED CELL | 3.63 (L)Comment: Testing | 3.7 0 - 5.10 | EXTERNAL | | | COUNT | performed at [facility], [address] | M/u L | LAB | | | | [address], | | | | | | [place] [address] | | | | + + +---- + + + | Hgb | 9.7 (L)Comment: Testing | 11. 3 - 15.5 | EXTERNAL | | | | performed at [facility], [address] | g/d L | LAB | | | | [address] [place], | | | | | | [place] [address] | | | | + + +---- + + + | Hematocrit, | 30.8 (L)Comment: Testing | 34. 0 - 46.0 % | EXTERNAL | | | POC | performed at [facility], [address] | | LAB | | | | [address] [place], | | | | | | [place] [address] | | | | + + +---- + + + | MCV | 84.8Comment: Testing | 80. 0 - 100.0 fl | EXTERNAL | | | | performed at [facility], [address] | | LAB | | | | [address] [place], | | | | | | [place] [address] | | | | + + +---- + + + | MCH | 26.8 (L)Comment: Testing | 27. 0 - 34.0 pg | EXTERNAL | | | | performed at [facility], [address] | | LAB | | | | [address], | | | | | | [place] [address] | | | | + + +---- + + + | MCHC | 31.6 (L)Comment: Testing | 32. 0 - 35.5 | EXTERNAL | | | | performed at [facility], [address] | g/d L | LAB | | | | [address], | | | | | | [place] [address] | | | | + + +---- + + + | RDW-CV | 68.3 (H)Comment: Testing | 37 - 53 fl | EXTERNAL | | | | performed at [facility], [address] | | LAB | | | | [address] [place], | | | | | | [place] [address] | | | | + + +---- + + + | Platelet | 388Comment: Testing | 150 - 400 K/uL | EXTERNAL | | | Count | performed at [facility], [address] | | LAB | | | Plasma | [address] [place], | | | | | | [place] [address] | | | | + + +---- + + + | MPV | 9.6Comment: Testing | fl | EXTERNAL | | | | performed at [facility], [address] | | LAB | | | | [address] [place], | | | | | | [place] [address] | | | | + + +---- + + + | Differentia | MANUALComment: Testing | | EXTERNAL | | | l Type | performed at [facility], [address] | | LAB | | | | [address] [place], | | | | | | [place] [address] | | | | + + +---- + + + | Nucleated | 1 (H)Comment: Testing | /10 0WBC | EXTERNAL | | | Red Blood | performed at [facility], [address] | | LAB | | | Cells | [address] [place], | | | | | | [place] [address] | | | | + + +---- + + + | Segmented | 77Comment: Testing | % | EXTERNAL | | | Neutrophils | performed at [facility], [address] | | LAB | | | Manual | [address], | | | | | | [place] [address] | | | | + + +---- + + + | % Bands | 6Comment: Testing | % | EXTERNAL | | | | performed at [facility], [address] | | LAB | | | | [address] [place], | | | | | | [place] [address] | | | | + + +---- + + + | % | 2Comment: Testing | % | EXTERNAL | | | Metamyelocy | performed at [facility], [address] | | LAB | | | petros | [address] [place], | | | | | | [place] [address] | | | | + + +---- + + + | Lymphocytes | 12Comment: Testing | % | EXTERNAL | | | Manual | performed at [facility], [address] | | LAB | | | | [address], | | | | | | [place] [address] | | | | + + +---- + + + | Monocytes | 3Comment: Testing | % | EXTERNAL | | | Manual | performed at [facility], [address] | | LAB | | | | [address], | | | | | | [place] [address] | | | | + + +---- + + + | Absolute | 14.0 (H)Comment: Testing | 1.9 - 7.4 K/uL | EXTERNAL | | | Neutrophils | performed at [facility], [address] | | LAB | | | | [address], | | | | | | [place] [address] | | | | + + +---- + + + | Bands | 1.1 (H)Comment: Testing | 0 - 0.2 K/uL | EXTERNAL | | | Manual | performed at [facility], [address] | | LAB | | | | [address] [place], | | | | | | [place] [address] | | | | + + +---- + + + | Absolute | 0.4 (H)Comment: Testing | K/u L | EXTERNAL | | | Metamyelocy | performed at [facility], [address] | | LAB | | | petros | [address], | | | | | | [place], [place] [address] | | | | + + +---- + + + | Absolute | 2.2Comment: Testing | 1.0 - 3.9 K/uL | EXTERNAL | | | Lymphocytes | performed at [facility], [address] | | LAB | | | [address], | | | | | | [place] [address] | | | | + + +---- + + + | Absolute | 0.5Comment: Testing | 0 - 0.8 K/uL | EXTERNAL | | | Monocytes | performed at [facility], [address] | | LAB | | | | [address], | | | | | | [place] [address] | | | | + + +---- + + + | RBC | 2+Comment: | | EXTERNAL | | | Morphology | ANISO1+POIK2+HYPO1+MICRO | | LAB | | | | 1+TARGETNORMAL PLT | | | | | | MORPHTesting performed | | | | | | at [facility], [address] | | | | | | [facility], | | | | | | [place] [address] | | | | | |1+ | | | | | |MICRO | | | | | |1+ | | | | | |TARGET | | | | | |NORMAL PLT MORPH | | | | | |Testing performed at [facility], [address] [place] [address] | | | | | | | [...] | | | | | [place] [address] | | | | + + + [...] | | | | performed at [facility], [address] | | LAB | | | | [address] [place], | | | | | | [place] [address] | | | | + + + [...] | | | | | [place] [address] | | | | + + + + + + | K | 3.1 (L)Comment: Testing | 3.5 - 4.9 | EXTERNAL | | | | performed at [facility], [address] | mmol/L | LAB | | | | [address] [place], | | | | | | [place] [address] | | | | + + + + + + | Cl | 105Comment: Testing | 99 - 109 mmol/L | EXTERNAL | | | | performed at [facility], [address] | | LAB | | | | [address], | | | | | | [place] [address] | | | | + + + + + + | CO2 | 29Comment: Testing | 23 - 32 mmol/L | EXTERNAL | | | | performed at [facility], [address] | | LAB | | | | [address], | | | | | | [place] [address] | | | | + + + + + + | Anion Gap | 9Comment: Testing | 5 - 20 mmol/L | EXTERNAL | | | | performed at [facility], [address] | | LAB | | | | [address], | | | | | | [place] [address] | | | | + + + + + + | Glucose, | 159 (H)Comment: Testing | 65 - 99 mg/dL | EXTERNAL | | | Fasting | performed at [facility], [address] | | LAB | | | | [address], | | | | | | [place] [address] | | | | + + + + + + | BUN | 17Comment: Testing | 8 - 25 mg/dL | EXTERNAL | | | | performed at [facility], [address] | | LAB | | | | [address], | | | | | | [place] [address] | | | | + + + + + + | Creatinine | 0.41 (L)Comment: Testing | 0.50 - 1.00 | EXTERNAL | | | | performed at [facility], [address] | mg/dL | LAB | | | | [address], | | | | | | [place] [address] | | | | + + + + + + | BUN/Creatin | 41Comment: Testing | | EXTERNAL | | | ine Ratio | performed at [facility], [address] | | LAB | | | | [address], | | | | | | [place] [address] | | | | + + + + + + | Calcium | 7.8 (L)Comment: Testing | 8.5 - 10.2 | EXTERNAL | | | | performed at [facility], [address] | mg/dL | LAB | | | | [place], | | | | | | [place] [address] | | | | + + [...] | | | | | at [facility], [address] | | | | | | [address], | | | | | | [place] [address] | | | | + + + [...] | | | Fingerstick | performed at [facility] | | LAB | | | | [address] [place] | | | | | | [address] | | | | + + + [...] | | | Fingerstick | performed at [facility];[address] | | LAB | | | | [address];[place], [place] | | | | | | [address] | | | | + + + [...] EXTERNAL | | | | performed at [facility];[address] | mmol/L | LAB | | | | [address] [place] | | | | | | [address] | | | | + + + [...] | | | Fingerstick | performed at [facility];[address] | | LAB | | | | [place] | | | | | | [address] | | | | + + + [...] | | | Fingerstick | performed at [facility];[address] | | LAB | | | | [address] [place] | | | | | | [address] | | | | + + + [...] | | | | | performed at [facility] | | | | | | [address] [facility];[place], [place] | | | | | | [address] | | | | + + + [...] | | | | performed at [facility], [address] | | LAB | | | | [address] [place], | | | | | | [place] [address] | | | | + + +---- + + + | RED CELL | 3.55 (L)Comment: Testing | 3.7 0 - 5.10 | EXTERNAL | | | COUNT | performed at [facility], [address] | M/u L | LAB | | | | [address] [place], | | | | | | [place] [address] | | | | + + +---- + + + | Hgb | 8.8 (L)Comment: RESULT | 11. 3 - 15.5 | EXTERNAL | | | | VERIFIEDTesting | g/d L | LAB | | | | performed at [facility], [address] | | | | | | [place], | | | | | | [place] [address] | | | | + + +---- + + + | Hematocrit, | 29.5 (L)Comment: RESULT | 34. 0 - 46.0 % | EXTERNAL | | | POC | VERIFIEDTesting | | LAB | | | | performed at [facility], [address] | | | | | | [place], | | | | | | [place] [address] | | | | + + +---- + + + | MCV | 83.2Comment: Testing | 80. 0 - 100.0 fl | EXTERNAL | | | | performed at [facility], [address] | | LAB | | | | [address] [place], | | | | | | [place] [address] | | | | + + +---- + + + | MCH | 24.8 (L)Comment: Testing | 27. 0 - 34.0 pg | EXTERNAL | | | | performed at [facility], [address] | | LAB | | | | [address] [place], | | | | | | [place] [address] | | | | + + +---- + + + | MCHC | 29.8 (L)Comment: Testing | 32. 0 - 35.5 | EXTERNAL | | | | performed at [facility], [address] | g/d L | LAB | | | | [address] [place], | | | | | | [place] [address] | | | | + + +---- + + + | RDW-CV | 64.8 (H)Comment: Testing | 37 - 53 fl | EXTERNAL | | | | performed at [facility], [address] | | LAB | | | | [address] [place], | | | | | | [place] [address] | | | | + + +---- + + + | Platelet | 397Comment: Testing | 150 - 400 K/uL | EXTERNAL | | | Count | performed at [facility], [address] | | LAB | | | Plasma | [place], | | | | | | [place] [address] | | | | + + +---- + + + | MPV | 9.2Comment: Testing | fl | EXTERNAL | | | | performed at [facility], [address] | | LAB | | | | [place], | | | | | | [place] [address] | | | | + + +---- + + + | Differentia | MANUALComment: Testing | | EXTERNAL | | | l Type | performed at [facility], [address] | | LAB | | | | [address], | | | | | | [place] [address] | | | | + + +---- + + + | Nucleated | 2 (H)Comment: Testing | /10 0WBC | EXTERNAL | | | Red Blood | performed at [facility], [address] | | LAB | | | Cells | [address], | | | | | | [place] [address] | | | | + + +---- + + + | Segmented | 72Comment: Testing | % | EXTERNAL | | | Neutrophils | performed at [facility], [address] | | LAB | | | Manual | [address], | | | | | | [place] [address] | | | | + + +---- + + + | % | 2Comment: Testing | % | EXTERNAL | | | Metamyelocy | performed at [facility], [address] | | LAB | | | petros | [address] [place], | | | | | | [place] [address] | | | | + + +---- + + + | Lymphocytes | 15Comment: Testing | % | EXTERNAL | | | Manual | performed at [facility], [address] | | LAB | | | | [address] [place], | | | | | | [place] [address] | | | | + + +---- + + + | Monocytes | 10Comment: Testing | % | EXTERNAL | | | Manual | performed at [facility], [address] | | LAB | | | | [address] [place], | | | | | | [place] [address] | | | | + + +---- + + + | Eosinophils | 1Comment: Testing | % | EXTERNAL | | | Manual | performed at [facility], [address] | | LAB | | | | [place], | | | | | | [place] [address] | | | | + + +---- + + + | Absolute | 16.5 (H)Comment: Testing | 1.9 - 7.4 K/uL | EXTERNAL | | | Neutrophils | performed at [facility], [address] | | LAB | | | | [address], | | | | | | [place] [address] | | | | + + +---- + + + | Absolute | 0.5 (H)Comment: Testing | K/u L | EXTERNAL | | | Metamyelocy | performed at [facility], [address] | | LAB | | | petros | [address] [place], | | | | | | [place] [address] | | | | + + +---- + + + | Absolute | 3.4Comment: Testing | 1.0 - 3.9 K/uL | EXTERNAL | | | Lymphocytes | performed at [facility], [address] | | LAB | | | | [place] [place], | | | | | | [place] [address] | | | | + + +---- + + + | Absolute | 2.3 (H)Comment: Testing | 0 - 0.8 K/uL | EXTERNAL | | | Monocytes | performed at [facility], [address] | | LAB | | | | [address] [place], | | | | | | [place] [address] | | | | + + +---- + + + | Absolute | 0.2Comment: Testing | 0 - 0.5 K/uL | EXTERNAL | | | Eosinophils | performed at [facility], [address] | | LAB | | | | [address] [place], | | | | | | [place] [address] | | | | + + +---- + + + | RBC | 2+Comment: | | EXTERNAL | | | Morphology | ANISO1+POIK2+HYPO1+TARGE | | LAB | | | | TNORMAL PLT MORPHTesting | | | | | | performed at [facility], [address] | | | | | | [address], | | | | | | [place] [address] | | | | | |HYPO | | | | | |1+ | | | | | |TARGET | | | | | |NORMAL PLT MORPH | | | | | |Testing performed at [facility], [address] [facility], [place] [address] | | | | | | | [...] | | | | performed at [facility], [address] | | LAB | | | | [address] [facility] [address] [facility], | | | | | | [place] [address] | | | | + + + [...] | | | | performed at [facility], [address] | | LAB | | | | [address] [place], | | | | | | [place] [address] | | | | + + + [...] | | | | | [place] [address] | | | | + + + + + + | K | 3.2 (L)Comment: Testing | 3.5 - 4.9 | EXTERNAL | | | | performed at [facility], [address] | mmol/L | LAB | | | | [address], | | | | | | [place] [address] | | | | + + + + + + | Cl | 113 (H)Comment: Testing | 99 - 109 mmol/L | EXTERNAL | | | | performed at [facility], [address] | | LAB | | | | [address], | | | | | | [place] [address] | | | | + + + [...] | | | | | [place] [address] | | | | + + + + + + | Glucose, | 133 (H)Comment: Testing | 65 - 99 mg/dL | EXTERNAL | | | Fasting | performed at [facility], [address] | | LAB | | | | [address], | | | | | | [place] [address] | | | | + + + + + + | BUN | 22Comment: Testing | 8 - 25 mg/dL | EXTERNAL | | | | performed at [facility], [address] | | LAB | | | | [address], | | | | | | [place] [address] | | | | + + + + + + | Creatinine | 0.68Comment: Testing | 0.50 - 1.00 | EXTERNAL | | | | performed at [facility], [address] | mg/dL | LAB | | | | [address], | | | | | | [place] [address] | | | | + + + + + + | BUN/Creatin | 32Comment: Testing | | EXTERNAL | | | ine Ratio | performed at [facility], [address] | | LAB | | | [address], | | | | | | [place] [address] | | | | + + + + + + | Calcium | 7.8 (L)Comment: Testing | 8.5 - 10.2 | EXTERNAL | | | | performed at [facility], [address] | mg/dL | LAB | | | | [address], | | | | | | [place] [address] | | | | + + + [...] | | | | | at [facility], [address] | | | | | | [facility], | | | | | | [place] [address] | | | | + + + [...] | | | Fingerstick | performed at [facility];[address] | | LAB | | | | [address];[place], [place] | | | | | | [address] | | | | + + + [...] EXTERNAL | | | | performed at [facility];[address] | mmol/L | LAB | | | | [address] [place] | | | | | | [address] | | | | + + + [...] EXTERNAL | | | | performed at [facility];[address] | | LAB | | | | [address];[place], [place] | | | | | | [address] | | | | + + + [...] EXTERNAL | | | | performed at [facility];[address] | | LAB | | | | [address] [facility];[place], [place] | | | | | | [address] | | | | + + + [...] | | | Fingerstick | performed at [facility];[address] | | LAB | | | | [place] [place] | | | | | | [address] | | | | + + + [...] EXTERNAL | | | | performed at [facility];[address] | mmol/L | LAB | | | | [address];[place], [place] | | | | | | [address] | | | | + + [...] | | | | | performed at [facility] | | | | | | [facility];[place], [place] | | | | | | [address] | | | | + + + [...] | | | Fingerstick | performed at [facility];[address] | | LAB | | | | [address];[place], [place] | | | | | | [address] [...] | | | Fingerstick | performed at [facility];[address] | | LAB | | | | [address];[place], [place] | | | | | | [address] | | | | + + + [...] | | | | | performed at [facility];[address] | | | | | | [facility];[place], [place] | | | | | | [address] | | | | + + + [...] EXTERNAL | | | | performed at [facility];[address] | | LAB | | | | [address] [place] | | | | | | [address] | | | | + + + + + + | RED CELL | 3.78Comment: Testing | 3.70 - 5.10 | EXTERNAL | | | COUNT | performed at [facility];[address] | M/uL | LAB | | | | [address];[place] | | | | | | [address] | | | | + + + + + + | Hgb | 9.2 (L)Comment: Testing | 11.3 - 15.5 | EXTERNAL | | | | performed at [facility];[address] | g/dL | LAB | | | | [address];[place] | | | | | | [address] | | | | + + + + + + | Hematocrit, | 30.7 (L)Comment: Testing | 34.0 - 46.0 % | EXTERNAL | | | POC | performed at [facility];[address] | | LAB | | | | [address];[place] | | | | | | [address] | | | | + + + + + + | MCV | 81.2Comment: Testing | 80.0 - 100.0 fl | EXTERNAL | | | | performed at [facility];[address] | | LAB | | | | [address] [place];[place] | | | | | | [address] | | | | + + + + + + | MCH | 24.2 (L)Comment: Testing | 27.0 - 34.0 pg | EXTERNAL | | | | performed at [facility];[address] | | LAB | | | | [address] [place];[place] | | | | | | [address] | | | | + + + + + + | MCHC | 29.8 (L)Comment: Testing | 32.0 - 35.5 | EXTERNAL | | | | performed at [facility];[address] | g/dL | LAB | | | | [address];[place] | | | | | | [address] | | | | + + + + + + | RDW-CV | 63.4 (H)Comment: Testing | 37 - 53 fl | EXTERNAL | | | | performed at [facility];[address] | | LAB | | | | [address];[place] | | | | | | [address] | | | | + + + + + + | Platelet | 385Comment: Testing | 150 - 400 K/uL | EXTERNAL | | | Count | performed at [facility];[address] | | LAB | | | Plasma | [address];[place] | | | | | | [address] | | | | + + + + + + | MPV | 9.1Comment: Testing | fl | EXTERNAL | | | | performed at [facility];[address] | | LAB | | | | [address];[place] | | | | | | [address] | | | | + + + + + + | Differentia | MANUALComment: Testing | | EXTERNAL | | | l Type | performed at [facility];[address] | | LAB | | | | [address];[place] | | | | | | [address] | | | | + + + + + + | Segmented | 83Comment: Testing | % | EXTERNAL | | | Neutrophils | performed at [facility];[address] | | LAB | | | Manual | [address];[place] | | | | | | [address] | | | | + + + + + + | % Bands | 2Comment: Testing | % | EXTERNAL | | | | performed at [facility];[address] | | LAB | | | | [address];[place] | | | | | | [address] | | | | + + + + + + | % | 1Comment: Testing | % | EXTERNAL | | | Metamyelocy | performed at [facility];[address] | | LAB | | | petros | [address];[place] | | | | | | [address] | | | | + + + + + + | Lymphocytes | 6Comment: Testing | % | EXTERNAL | | | Manual | performed at [facility];[address] | | LAB | | | | [address];[place] | | | | | | [address] | | | | + + + + + + | Monocytes | 8Comment: Testing | % | EXTERNAL | | | Manual | performed at [facility];[address] | | LAB | | | | [address];[place] | | | | | | [address] | | | | + + + + + + | Absolute | 15.9 (H)Comment: Testing | 1.9 - 7.4 K/uL | EXTERNAL | | | Neutrophils | performed at [facility];[address] | | LAB | | | | [address];[place] | | | | | | [address] | | | | + + + + + + | Bands | 0.4 (H)Comment: Testing | 0 - 0.2 K/uL | EXTERNAL | | | Manual | performed at [facility];[address] | | LAB | | | | [address];[place] | | | | | | [address] | | | | + + + + + + | Absolute | 0.2 (H)Comment: Testing | K/uL | EXTERNAL | | | Metamyelocy | performed at [facility];[address] | | LAB | | | petros | [address];[place] | | | | | | [address] | | | | + + + + + + | Absolute | 1.2Comment: Testing | 1.0 - 3.9 K/uL | EXTERNAL | | | Lymphocytes | performed at [facility];[address] | | LAB | | | | [address];[place] | | | | | | [address] | | | | + + + + + + | Absolute | 1.5 (H)Comment: Testing | 0 - 0.8 K/uL | EXTERNAL | | | Monocytes | performed at [facility];[address] | | LAB | | | | [address];[place] | | | | | | [address] | | | | + + + + + + | Platelet | ADEQUATEComment: Testing | | EXTERNAL | | | Estimate | performed at [facility];[address] | | LAB | | | | [address];[place] | | | | | | [address] | | | | + + + + + + | RBC | 1+Comment: | | EXTERNAL | | | Morphology | ANISO1+HYPO1+POIK1+TARGE | | LAB | | | | TNORMAL PLT MORPHTesting | | | | | | performed at [facility];[address] | | | | | | [address];[place] | | | | | | [address] | | | | | |POIK | | | | | |1+ | | | | | |TARGET | | | | | |NORMAL PLT MORPH | | | | | |Testing performed at [facility];[address];[place] [address] | | | | | | | [...] EXTERNAL | | | | performed at [facility];[address] | | LAB | | | | [address];[place], [place] | | | | | | [address] | | | | + + + [...] EXTERNAL | | | | performed at [facility] | | LAB | | | | [facility], [place] | | | | | | [address] | | | | + + + [...] EXTERNAL | | | | performed at [facility];888 | mmol/L | LAB | | | | [address];[place] | | | | | | [address] | | | | + + + + + + | K | 3.1 (L)Comment: Testing | 3.5 - 4.9 | EXTERNAL | | | | performed at [facility];888 | mmol/L | LAB | | | | [address];[place] | | | | | | [address] | | | | + + + + + + | Cl | 114 (H)Comment: Testing | 99 - 109 mmol/L | EXTERNAL | | | | performed at [facility];[address] | | LAB | | | | [address];[place] | | | | | | [address] | | | | + + + + + + | CO2 | 31Comment: Testing | 23 - 32 mmol/L | EXTERNAL | | | | performed at [facility];[address] | | LAB | | | | [address];[place] | | | | | | [address] | | | | + + + + + + | Anion Gap | 9Comment: Testing | 5 - 20 mmol/L | EXTERNAL | | | | performed at [facility];[address] | | LAB | | | | [address];[place] | | | | | | [address] | | | | + + + + + + | Glucose, | 163 (H)Comment: Testing | 65 - 99 mg/dL | EXTERNAL | | | Fasting | performed at [facility];[address] | | LAB | | | | [address];[place] | | | | | | [address] | | | | + + + + + + | BUN | 20Comment: Testing | 8 - 25 mg/dL | EXTERNAL | | | | performed at [facility];[address] | | LAB | | | | [address];[place] | | | | | | [address] | | | | + + + + + + | Creatinine | 0.96Comment: Testing | 0.50 - 1.00 | EXTERNAL | | | | performed at [facility];888 | mg/dL | LAB | | | | [address];[place] | | | | | | [address] | | | | + + + + + + | BUN/Creatin | 21Comment: Testing | | EXTERNAL | | | ine Ratio | performed at [facility];[address] | | LAB | | | | [address];[place] | | | | | | [address] | | | | + + + + + + | Calcium | 7.5 (L)Comment: Testing | 8.5 - 10.2 | EXTERNAL | | | | performed at [facility];888 | mg/dL | LAB | | | | [address];[place] | | | | | | [address] | | | | + + + [...] | | | | | | at [facility];[address] | | | | | [address];[place] [address] | | | | + + + [...] | | | Fingerstick | performed at [facility];[address] | | LAB | | | | [address];[place] | | | | | | [address] | | | | + + + [...] | | | Fingerstick | performed at [facility];[address] | | LAB | | | | [address];[place] | | | | | | [address] | | | | + + + [...] | | | Fingerstick | performed at [facility];[address] | | LAB | | | | [address];[place], [place] | | | | | | [address] | | | | + + + [...] | | | | | performed at [facility] | | | | | | [address];[place], [place] | | | | | | [address] | | | | + + + [...] | | | Fingerstick | performed at [facility];[address] | | LAB | | | | [address];[place], [place] | | | | | | [address] | | | | + + + [...] | | | | | performed at [facility];[address] | | | | | | [address];[place], [place] | | | | | | [address] | | | | + + + [...] EXTERNAL | | | | performed at [facility];[address] | | LAB | | | | [address];[place] | | | | | | [address] | | | | + + + + + + | RED CELL | 4.48Comment: Testing | 3.70 - 5.10 | EXTERNAL | | | COUNT | performed at [facility];888 | M/uL | LAB | | | | [address];[place] | | | | | | [address] | | | | + + + + + + | Hgb | 10.5 (L)Comment: Testing | 11.3 - 15.5 | EXTERNAL | | | | performed at [facility];888 | g/dL | LAB | | | | [address];[place] | | | | | | [address] | | | | + + + + + + | Hematocrit, | 36.0Comment: Testing | 34.0 - 46.0 % | EXTERNAL | | | POC | performed at [facility];888 | | LAB | | | | [address];[place] | | | | | | [address] | | | | + + + + + + | MCV | 80.5Comment: Testing | 80.0 - 100.0 fl | EXTERNAL | | | | performed at [facility];[address] | | LAB | | | | [address];[place] | | | | | | [address] | | | | + + + + + + | MCH | 23.5 (L)Comment: Testing | 27.0 - 34.0 pg | EXTERNAL | | | | performed at [facility];888 | | LAB | | | | [address];[place] | | | | | | [address] | | | | + + + + + + | MCHC | 29.1 (L)Comment: Testing | 32.0 - 35.5 | EXTERNAL | | | | performed at [facility];888 | g/dL | LAB | | | | [address];[place] | | | | | | [address] | | | | + + + + + + | RDW-CV | 61.3 (H)Comment: Testing | 37 - 53 fl | EXTERNAL | | | | performed at [facility];888 | | LAB | | | | [address];[place] | | | | | | [address] | | | | + + + + + + | Platelet | 378Comment: Testing | 150 - 400 K/uL | EXTERNAL | | | Count | performed at [facility];888 | | LAB | | | Plasma | [address];[place] | | | | | | [address] | | | | + + + + + + | MPV | 9.5Comment: Testing | fl | EXTERNAL | | | | performed at [facility];[address] | | LAB | | | | [address];[place] | | | | | | [address] | | | | + + + + + + | Differentia | MANUALComment: Testing | | EXTERNAL | | | l Type | performed at [facility];[address] | | LAB | | | | [address];[place] | | | | | | [address] | | | | + + + + + + | Nucleated | 2 (H)Comment: Testing | /100WBC | EXTERNAL | | | Red Blood | performed at [facility];888 | | LAB | | | Cells | [address];[place] | | | | | | [address] | | | | + + + + + + | Segmented | 88Comment: Testing | % | EXTERNAL | | | Neutrophils | performed at [facility];888 | | LAB | | | Manual | [address];[place] | | | | | | [address] | | | | + + + + + + | % | 1Comment: Testing | % | EXTERNAL | | | Myelocytes | performed at [facility];888 | | LAB | | | | [address];[place] | | | | | | [address] | | | | + + + + + + | Lymphocytes | 6Comment: Testing | % | EXTERNAL | | | Manual | performed at [facility];[address] | | LAB | | | | [address];[place] | | | | | | [address] | | | | + + + + + + | Monocytes | 5Comment: Testing | % | EXTERNAL | | | Manual | performed at [facility];[address] | | LAB | | | | [address];[place] | | | | | | [address] | | | | + + + + + + | Absolute | 17.6 (H)Comment: Testing | 1.9 - 7.4 K/uL | EXTERNAL | | | Neutrophils | performed at [facility];888 | | LAB | | | | [address];[place] | | | | | | [address] | | | | + + + + + + | Absolute | 0.2 (H)Comment: Testing | K/uL | EXTERNAL | | | Myelocytes | performed at [facility];[address] | | LAB | | | | [address];[place] | | | | | | [address] | | | | + + + + + + | Absolute | 1.2Comment: Testing | 1.0 - 3.9 K/uL | EXTERNAL | | | Lymphocytes | performed at [facility];888 | | LAB | | | | [address];[place] | | | | | | [address] | | | | + + + + + + | Absolute | 1.0 (H)Comment: Testing | 0 - 0.8 K/uL | EXTERNAL | | | Monocytes | performed at [facility];888 | | LAB | | | | [address];[place] | | | | | | [address] | | | | + + + + + + | RBC | 1+Comment: | | EXTERNAL | | | Morphology | HYPO2+ANISO1+TARGET1+POI | | LAB | | | | K1+GIANT | | | | | | PLATELETSTesting | | | | | | performed at [facility];[address] | | | | | | [address];[place] | | | | | | [address] | | | | | |1+ | | | | | |POIK | | | | | |1+ | | | | | |GIANT PLATELETS | | | | | |Testing performed at [facility];[address];[place] [address] | | | | | | | [...] | | | | performed at [facility], [address] | | LAB | | | | [address], | | | | | | [place] [address] | | | | + + + [...] [address];[place] [address] | | | | + + + [...] | | | | performed at [facility], [address] | | LAB | | | | [address], | | | | | | [place] [address] | | | | + + + [...] | | | | | [place] [address] | | | | + + + + + + | K | 4.4Comment: Testing | 3.5 - 4.9 | EXTERNAL | | | | performed at [facility], [address] | mmol/L | LAB | | | | [address], | | | | | | [place] [address] | | | | + + + + + + | Cl | 106Comment: Testing | 99 - 109 mmol/L | EXTERNAL | | | | performed at [facility], [address] | | LAB | | | | [address], | | | | | | [place] [address] | | | | + + + + + + | CO2 | 32Comment: Testing | 23 - 32 mmol/L | EXTERNAL | | | | performed at [facility], [address] | | LAB | | | | [address], | | | | | | [place] [address] | | | | + + + + + + | Anion Gap | 12Comment: Testing | 5 - 20 mmol/L | EXTERNAL | | | | performed at [facility], [address] | | LAB | | | | [address], | | | | | | [place] [address] | | | | + + + + + + | Glucose, | 212 (H)Comment: Testing | 65 - 99 mg/dL | EXTERNAL | | | Fasting | performed at [facility], [address] | | LAB | | | | [address], | | | | | | [place] [address] | | | | + + + + + + | BUN | 20Comment: Testing | 8 - 25 mg/dL | EXTERNAL | | | | performed at [facility], [address] | | LAB | | | | [address], | | | | | | [place] [address] | | | | + + + + + + | Creatinine | 0.86Comment: Testing | 0.50 - 1.00 | EXTERNAL | | | | performed at [facility], [address] | mg/dL | LAB | | | | [address], | | | | | | [place] [address] | | | | + + + + + + | BUN/Creatin | 23Comment: Testing | | EXTERNAL | | | ine Ratio | performed at [facility], [address] | | LAB | | | | [address], | | | | | | [place] [address] | | | | + + + + + + | Calcium | 8.2 (L)Comment: Testing | 8.5 - 10.2 | EXTERNAL | | | | performed at [facility], [address] | mg/dL | LAB | | | | [address], | | | | | | [place] [address] | | | | + + + [...] Gertrude, | | | | | | [place] [address] | | | | + + + [...] EXTERNAL | | | | performed at [facility];888 | mmol/L | LAB | | | | [address];[place], [place] | | | | | | [address] | | | | + + + [...] LAB | | | | performed at [facility];888 | | | | | | [address] [facility];[place], [place] | | | | | | [address] | | | | + + + [...] EXTERNAL | | | | performed at [facility];888 | mmol/L | LAB | | | | [address];[place], [place] | | | | | | [address] | | | | + + + [...] EXTERNAL | | | | performed at [facility];[address] | | LAB | | | | [address];[place], [place] | | | | | | [address] | | | | + + + [...] EXTERNAL | | | | performed at [facility];888 | mmol/L | LAB | | | | [address];[place], [place] | | | | | | [address] | | | | + + + [...] EXTERNAL | | | | performed at [facility];888 | | LAB | | | | [address];[place] | | | | | | [address] | | | | + + + [...] | | | | | | ACUTE AR Testing | | | | | | performed at [facility];[address] | | | | | | [address];[place], [place] | | | | | | [address] | | | | + + + [...] | | | | | performed at [facility] | | | | | | [address];[place], [place] | | | | | | [address] | | | | + + + [...] EXTERNAL | | | | performed at [facility];8 | | LAB | | | | [address];[place] | | | | | | [address] | | | | + + + + + + | RED CELL | 4.49Comment: Testing | 3.70 - 5.10 | EXTERNAL | | | COUNT | performed at [facility];888 | M/uL | LAB | | | | [address];[place] | | | | | | [address] | | | | + + + + + + | Hgb | 10.6 (L)Comment: Testing | 11.3 - 15.5 | EXTERNAL | | | | performed at [facility];888 | g/dL | LAB | | | | [address];[place] | | | | | | [address] | | | | + + + + + + | Hematocrit, | 36.1Comment: Testing | 34.0 - 46.0 % | EXTERNAL | | | POC | performed at [facility];888 | | LAB | | | | [address];[place] | | | | | | [address] | | | | + + + + + + | MCV | 80.2Comment: Testing | 80.0 - 100.0 fl | EXTERNAL | | | | performed at [facility];888 | | LAB | | | | [address];[place] | | | | | | [address] | | | | + + + + + + | MCH | 23.5 (L)Comment: Testing | 27.0 - 34.0 pg | EXTERNAL | | | | performed at [facility];888 | | LAB | | | | [address];[place] | | | | | | [address] | | | | + + + + + + | MCHC | 29.3 (L)Comment: Testing | 32.0 - 35.5 | EXTERNAL | | | | performed at [facility];888 | g/dL | LAB | | | | [address];[place] | | | | | | [address] | | | | + + + + + + | RDW-CV | 60.8 (H)Comment: Testing | 37 - 53 fl | EXTERNAL | | | | performed at [facility];[address] | | LAB | | | | [address];[place] | | | | | | [address] | | | | + + + + + + | Platelet | 382Comment: Testing | 150 - 400 K/uL | EXTERNAL | | | Count | performed at [facility];888 | | LAB | | | Plasma | [address];[place] | | | | | | [address] | | | | + + + + + + | MPV | 9.1Comment: Testing | fl | EXTERNAL | | | | performed at [facility];[address] | | LAB | | | | [address];[place] | | | | | | [address] | | | | + + + + + + | Differentia | MANUALComment: Testing | | EXTERNAL | | | l Type | performed at [facility];[address] | | LAB | | | | [address];[place] | | | | | | [address] | | | | + + + + + + | Nucleated | 2 (H)Comment: Testing | /100WBC | EXTERNAL | | | Red Blood | performed at [facility];888 | | LAB | | | Cells | [address];[place] | | | | | | [address] | | | | + + + + + + | Segmented | 90Comment: Testing | % | EXTERNAL | | | Neutrophils | performed at [facility];888 | | LAB | | | Manual | [address];[place] | | | | | | [address] | | | | + + + + + + | % Bands | 2Comment: Testing | % | EXTERNAL | | | | performed at [facility];888 | | LAB | | | | [address];[place] | | | | | | [address] | | | | + + + + + + | Lymphocytes | 8Comment: Testing | % | EXTERNAL | | | Manual | performed at [facility];888 | | LAB | | | | [address];[place] | | | | | | [address] | | | | + + + + + + | Absolute | 20.5 (H)Comment: Testing | 1.9 - 7.4 K/uL | EXTERNAL | | | Neutrophils | performed at [facility];888 | | LAB | | | | [address];[place] | | | | | | [address] | | | | + + + + + + | Bands | 0.5 (H)Comment: Testing | 0 - 0.2 K/uL | EXTERNAL | | | Manual | performed at [facility];888 | | LAB | | | | [address];[place] | | | | | | [address] | | | | + + + + + + | Absolute | 1.8Comment: Testing | 1.0 - 3.9 K/uL | EXTERNAL | | | Lymphocytes | performed at [facility];888 | | LAB | | | | [address];[place] | | | | | | [address] | | | | + + + + + + | Platelet | ADEQUATEComment: Testing | | EXTERNAL | | | Estimate | performed at [facility];[address] | | LAB | | | | [address];[place] | | | | | | [address] | | | | + + + + + + | RBC | 2+Comment: | | EXTERNAL | | | Morphology | ANISO1+HYPO1+ELLIPTO1+PO | | LAB | | | | IK2+TARGETNORMAL PLT | | | | | | MORPHTesting performed | | | | | | at [facility];[address];[place] [address] | | | | | |ELLIPTO | | | | | |1+ | | | | | |POIK | | | | | |2+ | | | | | |TARGET | | | | | |NORMAL PLT MORPH | | | | | |Testing performed at [facility];[address] [facility];[place] [address] | | | | | | | [...] EXTERNAL | | | | performed at [facility];888 | | LAB | | | | [address];[place] | | | | | | [address] | | | | + + + [...] | | LAB | | | | [facility];[address] [place] [address] | | | | | | [address];[place] [address] | | | | + + + [...] EXTERNAL | | | | performed at [facility];888 | | LAB | | | | [address];[place] | | | | | | [address] | | | | + + + [...] EXTERNAL | | | | performed at [facility];888 | | LAB | | | | [address];[place], [place] | | | | | | [address] | | | | + + [...] | | | | | performed at [facility] | | | | | | [facility], [place] | | | | | | [address] | | | | + + + [...] EXTERNAL | | | | performed at [facility];888 | mmol/L | LAB | | | | [address];[place] | | | | | | [address] | | | | + + + + + + | K | 3.7Comment: Testing | 3.5 - 4.9 | EXTERNAL | | | | performed at [facility];888 | mmol/L | LAB | | | | [address];[place] | | | | | | [address] | | | | + + + + + + | Cl | 109Comment: Testing | 99 - 109 mmol/L | EXTERNAL | | | | performed at [facility];[address] | | LAB | | | | [address];[place] | | | | | | [address] | | | | + + + + + + | CO2 | 28Comment: Testing | 23 - 32 mmol/L | EXTERNAL | | | | performed at [facility];[address] | | LAB | | | | [address];[place] | | | | | | [address] | | | | + + + + + + | Anion Gap | 14Comment: Testing | 5 - 20 mmol/L | EXTERNAL | | | | performed at [facility];[address] | | LAB | | | | [address];[place] | | | | | | [address] | | | | + + + + + + | Glucose, | 99Comment: Testing | 65 - 99 mg/dL | EXTERNAL | | | Fasting | performed at [facility];[address] | | LAB | | | | [address];[place] | | | | | | [address] | | | | + + + + + + | BUN | 22Comment: Testing | 8 - 25 mg/dL | EXTERNAL | | | | performed at [facility];[address] | | LAB | | | | [address];[place] | | | | | | [address] | | | | + + + + + + | Creatinine | 0.98Comment: Testing | 0.50 - 1.00 | EXTERNAL | | | | performed at [facility];888 | mg/dL | LAB | | | | [address];[place] | | | | | | [address] | | | | + + + + + + | BUN/Creatin | 23Comment: Testing | | EXTERNAL | | | ine Ratio | performed at [facility];[address] | | LAB | | | | [address];[place] | | | | | | [address] | | | | + + + + + + | Calcium | 8.4 (L)Comment: Testing | 8.5 - 10.2 | EXTERNAL | | | | performed at [facility];888 | mg/dL | LAB | | | | [address];[place] | | | | | | [address] | | | | + + + [...] | | | | | | at [facility];[address] [place] [address] | | | | | | Blvd;[place] [address] | | | | + + + [...] | | | | | | [place] [id number] AT 1844, | | | | | | VAPTesting performed at | | | | | | [facility];[address];[place] [address] | | | | + + + [...] EXTERNAL | | | | performed at [facility];888 | mmol/L | LAB | | | | [address];[place], [place] | | | | | | [address] | | | | + + + [...] EXTERNAL | | | | performed at [facility];[address] | | LAB | | | | [address];[place], [place] | | | | | | [address] | | | | + + + [...] EXTERNAL | | | | performed at [facility] | | LAB | | | | [address];[place], [place] | | | | | | [address] | | | | + + + [...] | EXTERNAL LAB | | performed at [facility];[address] [place] [address];[place] [address] 027 NAP1 BI | | | 027 NAP1 BI PRESUMPTIVE NEGATIVE | | | Detection of 027 NAP1 BI strains of C. difficile is presumptive and | | | for epidemiological purposes and not intended to guide or monitor | | | treatment for C. difficile infections. Testing performed at [facility];888 | | | [facility];[place] [address] | | + + + + +---------+ [...] | | | | | performed at [facility] | | | | | | [address] [facility];[place], [place] | | | | | | [address] | | | | + + + [...] | | | | performed at [facility], [address] | | LAB | | | | [address], | | | | | | [place] [address] | | | | + + + + + + | RED CELL | 4.43Comment: Testing | 3.70 - 5.10 | EXTERNAL | | | COUNT | performed at [facility], [address] | M/uL | LAB | | | | [address], | | | | | | [place] [address] | | | | + + + + + + | Hgb | 10.8 (L)Comment: Testing | 11.3 - 15.5 | EXTERNAL | | | | performed at [facility], [address] | g/dL | LAB | | | | [address], | | | | | | [place] [address] | | | | + + + + + + | Hematocrit, | 36.2Comment: Testing | 34.0 - 46.0 % | EXTERNAL | | | POC | performed at [facility], [address] | | LAB | | | | [address], | | | | | | [place] [address] | | | | + + + + + + | MCV | 81.7Comment: Testing | 80.0 - 100.0 fl | EXTERNAL | | | | performed at [facility], [address] | | LAB | | | | [address], | | | | | | [place] [address] | | | | + + + + + + | MCH | 24.5 (L)Comment: Testing | 27.0 - 34.0 pg | EXTERNAL | | | | performed at [facility], [address] | | LAB | | | | [address], | | | | | | [place] [address] | | | | + + + + + + | MCHC | 29.9 (L)Comment: Testing | 32.0 - 35.5 | EXTERNAL | | | | performed at [facility], [address] | g/dL | LAB | | | | [address], | | | | | | [place] [address] | | | | + + + + + + | RDW-CV | 63.0 (H)Comment: Testing | 37 - 53 fl | EXTERNAL | | | | performed at [facility], [address] | | LAB | | | | [address], | | | | | | [place] [address] | | | | + + + + + + | Platelet | 325Comment: Testing | 150 - 400 K/uL | EXTERNAL | | | Count | performed at [facility], [address] | | LAB | | | Plasma | [address], | | | | | | [place] [address] | | | | + + + + + + | MPV | 9.5Comment: Testing | fl | EXTERNAL | | | | performed at [facility], [address] | | LAB | | | | [address], | | | | | | [place] [address] | | | | + + + + + + | Differentia | MANUALComment: Testing | | EXTERNAL | | | l Type | performed at [facility], [address] | | LAB | | | | [address], | | | | | | [place], [place] [address] | | | | + + + + + + | Segmented | 86Comment: Testing | % | EXTERNAL | | | Neutrophils | performed at [facility], [address] | | LAB | | | Manual | [address], | | | | | | [place] [address] | | | | + + + + + + | % Bands | 2Comment: Testing | % | EXTERNAL | | | | performed at [facility], [address] | | LAB | | | | [address], | | | | | | [place], [place] [address] | | | | + + + + + + | Lymphocytes | 5Comment: Testing | % | EXTERNAL | | | Manual | performed at [facility], [address] | | LAB | | | | [address], | | | | | | [place] [address] | | | | + + + + + + | Monocytes | 7Comment: Testing | % | EXTERNAL | | | Manual | performed at [facility], [address] | | LAB | | | | [address], | | | | | | [place] [address] | | | | + + + + + + | Absolute | 17.3 (H)Comment: Testing | 1.9 - 7.4 K/uL | EXTERNAL | | | Neutrophils | performed at [facility], [address] | | LAB | | | | [address], | | | | | | [place] [address] | | | | + + + + + + | Bands | 0.4 (H)Comment: Testing | 0 - 0.2 K/uL | EXTERNAL | | | Manual | performed at [facility], [address] | | LAB | | | | [address], | | | | | | [place] [address] | | | | + + + + + + | Absolute | 1.0Comment: Testing | 1.0 - 3.9 K/uL | EXTERNAL | | | Lymphocytes | performed at [facility], [address] | | LAB | | | [address], | | | | | | [place] [address] | | | | + + + + + + | Absolute | 1.4 (H)Comment: Testing | 0 - 0.8 K/uL | EXTERNAL | | | Monocytes | performed at [facility], [address] | | LAB | | | | [address], | | | | | | [place] [address] | | | | + + + + + + | RBC | NORMAL RBC MORPHComment: | | EXTERNAL | | | Morphology | NORMAL PLT MORPHTesting | | LAB | | | | performed at [facility], [address] | | | | | | [address], | | | | | | [place] [address] | | | | + + + [...] EXTERNAL | | | | performed at [facility];[address] | | LAB | | | | [address];[place], [place] | | | | | | [address] | | | | + + + [...] EXTERNAL | | | | performed at [facility];[address] | | LAB | | | | [address];[place] | | | | | | [address] | | | | + + + [...] EXTERNAL | | | | performed at [facility];888 | mmol/L | LAB | | | | [address];[place] | | | | | | [address] | | | | + + + + + + | K | 3.6Comment: Testing | 3.5 - 4.9 | EXTERNAL | | | | performed at [facility];888 | mmol/L | LAB | | | | [address];[place] | | | | | | [address] | | | | + + + + + + | Cl | 109Comment: Testing | 99 - 109 mmol/L | EXTERNAL | | | | performed at [facility];[address] | | LAB | | | | [address];[place] | | | | | | [address] | | | | + + + + + + | CO2 | 31Comment: Testing | 23 - 32 mmol/L | EXTERNAL | | | | performed at [facility];[address] | | LAB | | | | [address];[place] | | | | | | [address] | | | | + + + + + + | Anion Gap | 11Comment: Testing | 5 - 20 mmol/L | EXTERNAL | | | | performed at [facility];[address] | | LAB | | | | [address];[place] | | | | | | [address] | | | | + + + + + + | Glucose, | 85Comment: Testing | 65 - 99 mg/dL | EXTERNAL | | | Fasting | performed at [facility];[address] | | LAB | | | | [address];[place] | | | | | | [address] | | | | + + + + + + | BUN | 18Comment: Testing | 8 - 25 mg/dL | EXTERNAL | | | | performed at [facility];[address] | | LAB | | | | [address];[place] | | | | | | [address] | | | | + + + + + + | Creatinine | 0.89Comment: Testing | 0.50 - 1.00 | EXTERNAL | | | | performed at [facility];888 | mg/dL | LAB | | | | [address];[place] | | | | | | [address] | | | | + + + + + + | BUN/Creatin | 20Comment: Testing | | EXTERNAL | | | ine Ratio | performed at [facility];[address] | | LAB | | | | [address];[place] | | | | | | [address] | | | | + + + + + + | Calcium | 8.0 (L)Comment: Testing | 8.5 - 10.2 | EXTERNAL | | | | performed at [facility];888 | mg/dL | LAB | | | | [facility] [facility];[place], [place] | | | | | | [address] | | | | + + + [...] | | | | | | at [facility];[address];[place] [address] | | | | + + + [...] EXTERNAL | | | | performed at [facility];888 | mmol/L | LAB | | | | [address];[place], [place] | | | | | | [address] | | | | + + + [...] EXTERNAL | | | | performed at [facility];[address] | | LAB | | | | [address];[place], [place] | | | | | | [...] EXTERNAL | | | | performed at [facility];[address] | | LAB | | | | [address];[place], [place] | | | | | | [address] | | | | + + + [...] | EXTERNAL LAB | | performed at [facility];[address] [place] [address];[place] [address] Pneumocystis Smear, | | | DFA ACCESSION NO. | | | [id number] SPECIMEN SOURCE SPUTUM | | | RESULT NO PNEUMOCYSTIS SEEN | | | BY DIRECT | | | FLUORESCENT ANTIBODY STAIN Testing performed at Located [facility] | | | [employer], [address], [facility] [address] PNEMOCYSTIS FA,STATUS | | | REPORT STATUS FINAL 04/15/2014 | | | Testing performed at [facility], [address], [place] | | | [place] [address] | | + + + + +---------+ [...] LAB | | | | performed at [facility];[address] | [address] | | | [address];[place], [place] | | | | | | [address] | | | | + + + [...] EXTERNAL | | | | performed at [facility];[address] | | LAB | | | | [address];[place] | | | | | | [address] | | | | + + + [...] LAB | | | | performed at [facility] [facility] | | | | | | [address];[place] | | | | | | [address] | | | | + + + [...] | | | | | performed at [facility];888 | | | | | | [facility];[place], [place] | | | | | | [address] | | | | + + + [...] EXTERNAL | | | | performed at [facility];888 | | LAB | | | | [address];[place] | | | | | | [address] | | | | + + + + + + | RED CELL | 4.14Comment: Testing | 3.70 - 5.10 | EXTERNAL | | | COUNT | performed at [facility];888 | M/uL | LAB | | | | [address];[place] | | | | | | [address] | | | | + + + + + + | Hgb | 10.0 (L)Comment: Testing | 11.3 - 15.5 | EXTERNAL | | | | performed at [facility];888 | g/dL | LAB | | | | [address];[place] | | | | | | [address] | | | | + + + + + + | Hematocrit, | 32.7 (L)Comment: Testing | 34.0 - 46.0 % | EXTERNAL | | | POC | performed at [facility];[address] | | LAB | | | | [address];[place] | | | | | | [address] | | | | + + + + + + | MCV | 79.1 (L)Comment: Testing | 80.0 - 100.0 fl | EXTERNAL | | | | performed at [facility];[address] | | LAB | | | | [address];[place] | | | | | | [address] | | | | + + + + + + | MCH | 24.3 (L)Comment: Testing | 27.0 - 34.0 pg | EXTERNAL | | | | performed at [facility];[address] | | LAB | | | | [address];[place] | | | | | | [address] | | | | + + + + + + | MCHC | 30.7 (L)Comment: Testing | 32.0 - 35.5 | EXTERNAL | | | | performed at [facility];888 | g/dL | LAB | | | | [address];[place] | | | | | | [address] | | | | + + + + + + | RDW-CV | 60.8 (H)Comment: Testing | 37 - 53 fl | EXTERNAL | | | | performed at [facility];888 | | LAB | | | | [address];[place] | | | | | | [address] | | | | + + + + + + | Platelet | 281Comment: Testing | 150 - 400 K/uL | EXTERNAL | | | Count | performed at [facility];888 | | LAB | | | Plasma | [address];[place] | | | | | | [address] | | | | + + + + + + | MPV | 9.1Comment: Testing | fl | EXTERNAL | | | | performed at [facility];[address] | | LAB | | | | [address];[place] | | | | | | [address] | | | | + + + + + + | Differentia | MANUALComment: Testing | | EXTERNAL | | | l Type | performed at [facility];[address] | | LAB | | | | [address];[place] | | | | | | [address] | | | | + + + + + + | Nucleated | 1 (H)Comment: Testing | /100WBC | EXTERNAL | | | Red Blood | performed at [facility];888 | | LAB | | | Cells | [address];[place] | | | | | | [address] | | | | + + + + + + | Segmented | 91Comment: Testing | % | EXTERNAL | | | Neutrophils | performed at [facility];888 | | LAB | | | Manual | [address];[place] | | | | | | [address] | | | | + + + + + + | Lymphocytes | 6Comment: Testing | % | EXTERNAL | | | Manual | performed at [facility];[address] | | LAB | | | | [address];[place] | | | | | | [address] | | | | + + + + + + | Monocytes | 3Comment: Testing | % | EXTERNAL | | | Manual | performed at [facility];888 | | LAB | | | | [address];[place] | | | | | | [address] | | | | + + + + + + | Absolute | 19.1 (H)Comment: Testing | 1.9 - 7.4 K/uL | EXTERNAL | | | Neutrophils | performed at [facility];888 | | LAB | | | | [address];[place] | | | | | | [address] | | | | + + + + + + | Absolute | 1.3Comment: Testing | 1.0 - 3.9 K/uL | EXTERNAL | | | Lymphocytes | performed at [facility];888 | | LAB | | | | [address];[place] | | | | | | [address] | | | | + + + + + + | Absolute | 0.6Comment: Testing | 0 - 0.8 K/uL | EXTERNAL | | | Monocytes | performed at [facility];888 | | LAB | | | | [address];[place] | | | | | | [address] | | | | + + + + + + | Platelet | ADEQUATEComment: Testing | | EXTERNAL | | | Estimate | performed at [facility];888 | | LAB | | | | [address];[place] | | | | | | [address] | | | | + + + + + + | RBC | 3+Comment: | | EXTERNAL | | | Morphology | ANISO1+MACRO1+MICRO1+HYP | | LAB | | | | O1+POLY2+TARGET1+ACANTHO | | | | | | Testing performed at | | | | | | [facility];[address];[place] [address] | | | | | |MICRO | | | | | |1+ | | | | | |HYPO | | | | | |1+ | | | | | |POLY | | | | | |2+ | | | | | |TARGET | | | | | |1+ | | | | | |ACANTHO | | | | | |Testing performed at [facility];[address];[place] [address] | | | | | | | [...] EXTERNAL | | | | performed at [facility] | | LAB | | | | [address];[place], [place] | | | | | | [address] | | | | + + + [...] | | | | | | at [facility];[address] [place] [address] | | | | | | [facility];[place] [address] | | | | + + + [...] EXTERNAL | | | | performed at [facility];888 | mmol/L | LAB | | | | [address];[place] | | | | | | [address] | | | | + + + + + + | K | 5.4 (H)Comment: SLT | 3.5 - 4.9 | EXTERNAL | | | | HEMOLYSISTesting | mmol/L | LAB | | | | performed at [facility];[address] | | | | | | [address];[place] | | | | | | [address] | | | | + + + + + + | Cl | 107Comment: Testing | 99 - 109 mmol/L | EXTERNAL | | | | performed at [facility];[address] | | LAB | | | | [address];[place] | | | | | | [address] | | | | + + + + + + | CO2 | 24Comment: Testing | 23 - 32 mmol/L | EXTERNAL | | | | performed at [facility];[address] | | LAB | | | | [address];[place] | | | | | | [address] | | | | + + + + + + | Anion Gap | 15Comment: Testing | 5 - 20 mmol/L | EXTERNAL | | | | performed at [facility];[address] | | LAB | | | | [address];[place] | | | | | | [address] | | | | + + + + + + | Glucose, | 94Comment: Testing | 65 - 99 mg/dL | EXTERNAL | | | Fasting | performed at [facility];[address] | | LAB | | | | [address];[place] | | | | | | [address] | | | | + + + + + + | BUN | 14Comment: Testing | 8 - 25 mg/dL | EXTERNAL | | | | performed at [facility];[address] | | LAB | | | | [address];[place] | | | | | | [address] | | | | + + + + + + | Creatinine | 0.72Comment: Testing | 0.50 - 1.00 | EXTERNAL | | | | performed at [facility];888 | mg/dL | LAB | | | | [address];[place] | | | | | | [address] | | | | + + + + + + | BUN/Creatin | 19Comment: Testing | | EXTERNAL | | | ine Ratio | performed at [facility];[address] | | LAB | | | | [address];[place] | | | | | | [address] | | | | + + + + + + | Calcium | 7.3 (L)Comment: Testing | 8.5 - 10.2 | EXTERNAL | | | | performed at [facility];888 | mg/dL | LAB | | | | [address];[place] | | | | | | [address] | | | | + + + [...] | | | | | | at [facility];[address];[place] [address] | | | | + + + [...] HAND | | | Testing performed at [facility];[address] | | | [facility];[place] [address] CULTURE | | | NO GROWTH | | | Testing performed at [facility], [address], [place] | | | [address] | | + + + + +---------+ [...] at | | | | | | [facility];[address] [place] [address] | | | | | | [facility];[place] [address] | | | | + + + [...] | | | | | performed at [facility] | | | | | | [address];[place], [place] | | | | | | [address] | | | | + + + [...] EXTERNAL | | | | performed at [facility];[address] | | LAB | | | | [address];[place] | | | | | | [address] | | | | + + + + + + | RED CELL | 4.24Comment: Testing | 3.70 - 5.10 | EXTERNAL | | | COUNT | performed at [facility];888 | M/uL | LAB | | | | [address];[place] | | | | | | [address] | | | | + + + + + + | Hgb | 10.3 (L)Comment: Testing | 11.3 - 15.5 | EXTERNAL | | | | performed at [facility];888 | g/dL | LAB | | | | [address];[place] | | | | | | [address] | | | | + + + + + + | Hematocrit, | 33.3 (L)Comment: Testing | 34.0 - 46.0 % | EXTERNAL | | | POC | performed at [facility];[address] | | LAB | | | | [address];[place] | | | | | | [address] | | | | + + + + + + | MCV | 78.6 (L)Comment: Testing | 80.0 - 100.0 fl | EXTERNAL | | | | performed at [facility];[address] | | LAB | | | | [address];[place] | | | | | | [address] | | | | + + + + + + | MCH | 24.2 (L)Comment: Testing | 27.0 - 34.0 pg | EXTERNAL | | | | performed at [facility];[address] | | LAB | | | | [address];[place] | | | | | | [address] | | | | + + + + + + | MCHC | 30.8 (L)Comment: Testing | 32.0 - 35.5 | EXTERNAL | | | | performed at [facility];888 | g/dL | LAB | | | | [address];[place] | | | | | | [address] | | | | + + + + + + | RDW-CV | 61.7 (H)Comment: Testing | 37 - 53 fl | EXTERNAL | | | | performed at [facility];[address] | | LAB | | | | [address];[place] | | | | | | [address] | | | | + + + + + + | Platelet | 283Comment: Testing | 150 - 400 K/uL | EXTERNAL | | | Count | performed at [facility];[address] | | LAB | | | Plasma | [address];[place] | | | | | | [address] | | | | + + + + + + | MPV | 9.0Comment: Testing | fl | EXTERNAL | | | | performed at [facility];[address] | | LAB | | | | [address];[place] | | | | | | [address] | | | | + + + + + + | Differentia | MANUALComment: Testing | | EXTERNAL | | | l Type | performed at [facility];[address] | | LAB | | | | [address];[place] | | | | | | [address] | | | | + + + + + + | Nucleated | 3 (H)Comment: Testing | /100WBC | EXTERNAL | | | Red Blood | performed at [facility];[address] | | LAB | | | Cells | [address];[place] | | | | | | [address] | | | | + + + + + + | Segmented | 91Comment: Testing | % | EXTERNAL | | | Neutrophils | performed at [facility];[address] | | LAB | | | Manual | [address];[place] | | | | | | [address] | | | | + + + + + + | % Bands | 2Comment: Testing | % | EXTERNAL | | | | performed at [facility];[address] | | LAB | | | | [address];[place] | | | | | | [address] | | | | + + + + + + | Lymphocytes | 2Comment: Testing | % | EXTERNAL | | | Manual | performed at [facility];[address] | | LAB | | | | [address];[place] | | | | | | [address] | | | | + + + + + + | % Atypical | 2Comment: Testing | % | EXTERNAL | | | Lymphocytes | performed at [facility];[address] | | LAB | | | | [address];[place] | | | | | | [address] | | | | + + + + + + | Monocytes | 3Comment: Testing | % | EXTERNAL | | | Manual | performed at [facility];[address] | | LAB | | | | [address];[place] | | | | | | [address] | | | | + + + + + + | Absolute | 16.9 (H)Comment: Testing | 1.9 - 7.4 K/uL | EXTERNAL | | | Neutrophils | performed at [facility];888 | | LAB | | | | [address];[place] | | | | | | [address] | | | | + + + + + + | Bands | 0.4 (H)Comment: Testing | 0 - 0.2 K/uL | EXTERNAL | | | Manual | performed at [facility];[address] | | LAB | | | | [address];[place] | | | | | | [address] | | | | + + + + + + | Absolute | 0.4 (L)Comment: Testing | 1.0 - 3.9 K/uL | EXTERNAL | | | Lymphocytes | performed at [facility];[address] | | LAB | | | | [address];[place] | | | | | | [address] | | | | + + + + + + | Absolute | 0.4 (H)Comment: Testing | K/uL | EXTERNAL | | | Atypical | performed at [facility];[address] | | LAB | | | Lymphocytes | [address];[place] | | | | | | [address] | | | | + + + + + + | Absolute | 0.6Comment: Testing | 0 - 0.8 K/uL | EXTERNAL | | | Monocytes | performed at [facility];[address] | | LAB | | | | [address];[place] | | | | | | [address] | | | | + + + + + + | Platelet | ADEQUATEComment: Testing | | EXTERNAL | | | Estimate | performed at [facility];[address] | | LAB | | | | [address];[place] | | | | | | [address] | | | | + + + + + + | RBC | 1+Comment: | | EXTERNAL | | | Morphology | ANISO1+POIK2+HYPO1+TARGE | | LAB | | | | TNORMAL PLT MORPHTesting | | | | | | performed at [facility];[address] | | | | | | [facility];[place], [place] | | | | | | [address] | | | | | |HYPO | | | | | |1+ | | | | | |TARGET | | | | | |NORMAL PLT MORPH | | | | | |Testing performed at [facility];[address] [place] [address];[place] [address] | | | | | | | [...] EXTERNAL | | | | performed at [facility];888 | mmol/L | LAB | | | | [address];[place] | | | | | | [address] | | | | + + + + + + | K | 4.1Comment: SPECIMEN | 3.5 - 4.9 | EXTERNAL | | | | SLIGHTLY | mmol/L | LAB | | | | HEMOLYZEDTesting | | | | | | performed at [facility];[address] | | | | | | [address];[place] | | | | | | [address] | | | | + + + + + + | Cl | 105Comment: Testing | 99 - 109 mmol/L | EXTERNAL | | | | performed at [facility];[address] | | LAB | | | | [address];[place] | | | | | | [address] | | | | + + + + + + | CO2 | 24Comment: Testing | 23 - 32 mmol/L | EXTERNAL | | | | performed at [facility];[address] | | LAB | | | | [address];[place] | | | | | | [address] | | | | + + + + + + | Anion Gap | 15Comment: Testing | 5 - 20 mmol/L | EXTERNAL | | | | performed at [facility];[address] | | LAB | | | | [address];[place] | | | | | | [address] | | | | + + + + + + | Glucose, | 137 (H)Comment: Testing | 65 - 99 mg/dL | EXTERNAL | | | Fasting | performed at [facility];[address] | | LAB | | | | [address];[place] | | | | | | [address] | | | | + + + + + + | BUN | 15Comment: Testing | 8 - 25 mg/dL | EXTERNAL | | | | performed at [facility];[address] | | LAB | | | | [address];[place] | | | | | | [address] | | | | + + + + + + | Creatinine | 0.96Comment: Testing | 0.50 - 1.00 | EXTERNAL | | | | performed at [facility];888 | mg/dL | LAB | | | | [address];[place] | | | | | | [address] | | | | + + + + + + | BUN/Creatin | 15Comment: Testing | | EXTERNAL | | | ine Ratio | performed at [facility];[address] | | LAB | | | | [address];[place] | | | | | | [address] | | | | + + + + + + | Calcium | 7.5 (L)Comment: Testing | 8.5 - 10.2 | EXTERNAL | | | | performed at [facility];888 | mg/dL | LAB | | | | [address];[place] | | | | | | [address] | | | | + + + + + + | Protein, | 5.2 (L)Comment: Testing | 6.3 - 8.2 g/dL | EXTERNAL | | | Total | performed at [facility];[address] | | LAB | | | | [address];[place] | | | | | | [address] | | | | + + + + + + | Albumin | 1.6 (L)Comment: Testing | 3.6 - 5.0 g/dL | EXTERNAL | | | | performed at [facility];[address] | | LAB | | | | [address];[place] | | | | | | [address] | | | | + + + + + + | Globulin | 3.7Comment: Testing | 1.3 - 4.9 g/dL | EXTERNAL | | | | performed at [facility];[address] | | LAB | | | | [address];[place] | | | | | | [address] | | | | + + + + + + | A/G Ratio | 0.4 (L)Comment: Testing | 1.0 - 2.4 | EXTERNAL | | | | performed at [facility];[address] | | LAB | | | | [address];[place] | | | | | | [address] | | | | + + + + + + | Bilirubin | 0.3Comment: Testing | 0.1 - 1.5 mg/dL | EXTERNAL | | | Total | performed at [facility];[address] | | LAB | | | | [address];[place] | | | | | | [address] | | | | + + + + + + | ALP, | 86Comment: Testing | 35 - 115 U/L | EXTERNAL | | | External | performed at [facility];[address] | | LAB | | | | [address];[place] | | | | | | [address] | | | | + + + + + + | AST | 55 (H)Comment: SPECIMEN | 10 - 45 U/L | EXTERNAL | | | | SLIGHTLY | | LAB | | | | HEMOLYZEDTesting | | | | | | performed at [facility];[address] | | | | | | [address];[place] | | | | | | [address] | | | | + + + + + + | ALT | 18Comment: Testing | 10 - 65 U/L | EXTERNAL | | | | performed at [facility];[address] | | LAB | | | | [address];[place] | | | | | | [address] | | | | + + + [...] | | | | | | at [facility];[address] [facility] | | | | | | Blvd;[place] [address] | | | | + + + [...] RHAND | | | Testing performed at [facility];[address] | | | [address] [facility];[place] [address] CULTURE | | | NO GROWTH | | | Testing performed at [facility], [address] [facility], [place], [place] | | | [address] | | + + + + +---------+ [...] EXTERNAL LAB | | Testing performed at [facility];[address] [place] [address];[place] [address] MRSA PCR | | | NEGATIVE Testing performed at | | | [facility];[address] [place] [address];[place] [address] | | + + + + +---------+ [...] | | | | | [place] [address] | | | | + + + + + + | Clarity | CLEARComment: Testing | | EXTERNAL | | | | performed at [facility], [address] | | LAB | | | | [address], | | | | | | [place] [address] | | | | + + + + + + | Specific | 1.021Comment: Testing | 1.002 - 1.030 | EXTERNAL | | | Wilber | performed at [facility], [address] | | LAB | | | | [address], | | | | | | [place] [address] | | | | + + + + + + | Leukocyte | NEGATIVEComment: Testing | | EXTERNAL | | | Esterase, | performed at [facility], [address] | | LAB | | | Urine | [address], | | | | | | [place] [address] | | | | + + + + + + | Nitrite, | NEGATIVEComment: Testing | | EXTERNAL | | | Urine | performed at [facility], [address] | | LAB | | | | [address], | | | | | | [place] [address] | | | | + + + + + + | Urobilinoge | 0.2Comment: Testing | mg/dL | EXTERNAL | | | n, Urine | performed at [facility], [address] | | LAB | | | [address], | | | | | | [place] [address] | | | | + + + + + + | Protein, | NEGATIVEComment: Testing | mg/dL | EXTERNAL | | | Urine | performed at [facility], [address] | | LAB | | | | [address], | | | | | | [place] [address] | | | | + + + + + + | pH, Urine | 6.0Comment: Testing | 5.0 - 8.0 | EXTERNAL | | | | performed at [facility], [address] | | LAB | | | | [address], | | | | | | [place] [address] | | | | + + + + + + | Blood, | NEGATIVEComment: Testing | | EXTERNAL | | | Urine | performed at [facility], [address] | | LAB | | | | [address], | | | | | | [place] [address] | | | | + + + + + + | Ketones | NEGATIVEComment: Testing | mg/dL | EXTERNAL | | | | performed at [facility], [address] | | LAB | | | | [address], | | | | | | [place] [address] | | | | + + + + + + | Bilirubin, | NEGATIVEComment: Testing | | EXTERNAL | | | Urine | performed at [facility], [address] | | LAB | | | | [address], | | | | | | [place] [address] | | | | + + + + + + | Glucose, | NEGATIVEComment: Testing | mg/dL | EXTERNAL | | | Urine | performed at [facility], [address] | | LAB | | | | [address], | | | | | | [place] [address] | | | | + + + [...] ALBICANSAbnormal | | | Testing performed at [facility], [address] [place], [place] | | | [address] | | + + + + +---------+ [...] + + | Aspiration pneumonia ([facility]) Pneumonitis due to inhalation of food or vomitus | + + | COPD (chronic obstructive pulmonary disease) ([facility]) Chronic airway obstruction, not | | elsewhere [...]
--- OUTSIDE RECORDS SUMMARY | ~2019-03-09 | XMS | Encounter Summary ---
Demographics + + + | Address | [address] | | | [place] [address] | + + + | Home Phone | | + + + | Preferred Language | Unknown | + + + | Marital Status | | + + + | Judaism Affiliation | Unknown | + + + | Race | Unknown | + + + | Ethnic Group | Unknown | + + + Author + + + | Author | [facility] | | | and [place] | + + + | Organization | [facility] | [...] Team Providers + +------+ + | Care Rheostat Assembler Name | Role | Phone | + +------+ + PCP | Unavailable | + +------+ + Encounter Details +--------+ + + + + | Date | Type | Department | Care Team | Description | +--------+ + + + + | 08/04/ | Hospital | [facility] | Chace Benson | Crohn's disease of | | 2016 - | Encounter | [facility] | MD Alex Steve | large intestine with | | | | CARE FLOOR [address] [place], [place] | complication (HCC) | | 08/07/ | | [address] | [address] | | | 2015 | | [place], [place] | | | | | | [address] | | | | | | [phone] | | | +--------+ + + + [...] Summaries by Deanne Henson MD at 08/08/15 9936 Author: Deanne Henson MD Service: Internal Medicine Author Type: Physician Filed: 08/08/15 1441 Date of Service: 08/08/151 Status: Signed Mechanical Project Engineer: Deanne Henson MD (Physician) [facility] Service: Hospitalist Physician Discharge Summary Patient ID: [...] She presented to linda [facility]gency department at [facility] today with complaints of diarrhea, vomiting, [...] she came to the emergency department of [facility], where she was found to have INR of 12.9. NG tube was passed and return was blood-t inged. She was given 2 units of fresh frozen plasma and 10 mg of vitamin K, and patient was transferred to this hospital as there is no GI backup at [facility]. Hospital Course: The pt admitted for vomiting blood with inr > 12. She took extra coumadin pills. She got ffp, vit K, and tx to [facility]. Iv fluds, iv ppi gtt started. git [...] x [address] Townsend? 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 [address] [facility] [address] [facility] [id number] Please resume your coumadin therapy services within the next 3 days after discharge. Neel Fernandes MD [address] [facility] [phone] Medication List START taking these medications lactobacillus [...] are the prescriptions that you need to machine pecan picker. You may get the following medications [...] Service: (none) Author Type: Registered Nurse Filed: 08/08/150 Date of Service: 08/08/151412 Status: Signed Mechanical Project Engineer: Linh Perez RN (Registered Nurse) Met with pt regarding discharge planning. Pt states she is followed for her coumadin therap hy with [facility]. Pt states she will resume her coumadin servi krystyna with them upon d/c. No other needs at this time. KaylynGhulam Perez RN, CM. [phone] Deanne Galaviz MD - 08/07/2015 10:12 AM PDTFormatting of this note might be different from the or iginal. Progress Notes by Deanne Henson MD at 08/07/15 1012 Author: Deanne Henson MD Service: Internal Medicine Author Type: Physician Filed: 08/07/15 1017 Date of Service: 08/07/15 1012 Status: Signed Mechanical Project Engineer: Deanne Henson MD (Physician) [facility] Service: Hospitalist Progress Note Hospital Day: LOS: [...] She presented to linda rgency department at [facility] today with complaints of diarrhea, vomiting, [...] she came to the emergency department of [facility], where she was found to have INR of 12.9. NG tube was passed and return was blood-t inged. She was given 2 units of fresh frozen plasma and 10 mg of vitamin K, and patient was transferred to this hospital as there is no GI backup at [facility]. Scheduled Medications baclofen 10 mg Oral [...] prefers vanco.. Mentions seeing dr Townsend at [facility] for fistula b/w vagina, colon. Get records. [...] 0644 Date of Service: 08/06/152124 Status: Addendum Mechanical Project Engineer: Celsa Del Castillo RN (Registered Nurse) Related [...] Author: LEVI Gallardo Service: (none) Author Type: Administrative Technician Filed: 08/06/15 1624 Date of Service: 08/06/15 1622 Status: Signed Mechanical Project Engineer: LEVI Gallardo (Administrative Technician) 08/06/15 1600 Discharge Planning Evaluation Admitting Diagnosis Upper GI Bleed Readmission No Living Arrangements Spouse/significant other Support Systems Spouse/significant other Independent with ADL's Yes Independent with Mobility Yes Mental Status Oriented Anticipated Discharge Plan Post Acute Care Needs None at this time Resources Financial concerns No Transportation issues No Patient/Family concerns No Prescription Plan Yes Anticipated Disposition Facility Type Home [employer] 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 Progress Notes by Deanne Henson MD at 08/06/15 0898 Author: Deanne Henson MD Service: Internal Medicine Author Type: Physician Filed: 08/06/15 1306 Date of Service: 08/06/15 1258 Status: Addendum Mechanical Project Engineer: Deanne Henson MD (Physician) Related Notes: Original Note by Deanne Henson MD (Physician) filed at 08/06/15 1304 [facility] Service: Hospitalist Progress Note Hospital Day: LOS: [...] She presented to linda rgency department at [facility] today with complaints of diarrhea, vomiting, [...] she came to the emergency department of [facility], where she was found to have INR of 12.9. NG tube was passed and return was blood-t inged. She was given 2 units of fresh frozen plasma and 10 mg of vitamin K, and patient was transferred to this hospital as there is no GI backup at [facility]. Scheduled Medications hydrocortisone sodium succinate PF [...] recurrent uti's. Mentions seeing dr Townsend at [facility] for fistula b/w vagina, colon. Get records. [...] 08/06/1545 Date of Service: 08/06/1545 Status: Signed Mechanical Project Engineer: Hamilton Drummond RPH (Pharmacist) Note ccl 45.9ml/min [...] | EXTERNAL LAB: CBC | Routin | 08/08/2015 | | Results [...] | | | | | performed at [facility] | | | | | | [address];[place], [place] | | | | | | [address] | | | | + + + [...] | | | TCL, [address] [facility] | | | | | | [place] | | | | | | [address] | | | | + + +---- + + + | RED CELL | 3.36 (L)Comment: Testing | 3.7 0 - 5.10 | EXTERNAL | | | COUNT | performed at [facility], [address] | M/u L | LAB | | | | [address] [place], | | | | | | [place] [address] | | | | + + +---- + + + | Hgb | 7.8 (L)Comment: Testing | 11. 3 - 15.5 | EXTERNAL | | | | performed at [facility], [address] | g/d L | LAB | | | | [address], | | | | | | [place] [address] | | | | + + +---- + + + | Hematocrit, | 26.6 (L)Comment: Testing | 34. 0 - 46.0 % | EXTERNAL | | | POC | performed at [facility], [address] | | LAB | | | | [address] [place], | | | | | | [place] [address] | | | | + + +---- + + + | MCV | 79.1 (L)Comment: Testing | 80. 0 - 100.0 fl | EXTERNAL | | | | performed at [facility], [address] | | LAB | | | | [place], | | | | | | [place] [address] | | | | + + +---- + + + | MCH | 23.2 (L)Comment: Testing | 27. 0 - 34.0 pg | EXTERNAL | | | | performed at [facility], [address] | | LAB | | | | [address] [place], | | | | | | [place] [address] | | | | + + +---- + + + | MCHC | 29.3 (L)Comment: Testing | 32. 0 - 35.5 | EXTERNAL | | | | performed at [facility], [address] | g/d L | LAB | | | | [address] [place], | | | | | | [place] [address] | | | | + + +---- + + + | RDW-CV | 61.7 (H)Comment: Testing | 37 - 53 fl | EXTERNAL | | | | performed at [facility], [address] | | LAB | | | | [address] [place], | | | | | | [place] [address] | | | | + + +---- + + + | Platelet | 418 (H)Comment: Testing | 150 - 400 K/uL | EXTERNAL | | | Count | performed at [facility], [address] | | LAB | | | Plasma | [address] [place], | | | | | | [place] [address] | | | | + + +---- + + + | MPV | 8.3Comment: Testing | fl | EXTERNAL | | | | performed at [facility], [address] | | LAB | | | | [address], | | | | | | [place] [address] | | | | + + +---- + + + | Differentia | AUTOMATEDComment: | | EXTERNAL | | | l Type | Testing performed at | | LAB | | | | [facility], [address] | | | | | | [place] | | | | | | [address] | | | | + + +---- + + + | % Segmented | 59.50Comment: Testing | % | EXTERNAL | | | | performed at [facility], [address] | | LAB | | | Neutrophils | [address] [place], | | | | | | [place] [address] | | | | + + +---- + + + | % | 29.26Comment: Testing | % | EXTERNAL | | | Lymphocytes | performed at [facility], [address] | | LAB | | | | [address], | | | | | | [place] [address] | | | | + + +---- + + + | % Monocytes | 9.64Comment: Testing | % | EXTERNAL | | | | performed at [facility], [address] | | LAB | | | | [place], | | | | | | [place] [address] | | | | + + +---- + + + | % | 0.54Comment: Testing | % | EXTERNAL | | | Eosinophils | performed at [facility], [address] | | LAB | | | | [place], | | | | | | [place] [address] | | | | + + +---- + + + | % Basophils | 1.06Comment: Testing | % | EXTERNAL | | | | performed at [facility], [address] | | LAB | | | | [place] [place], | | | | | | [place] [address] | | | | + + +---- + + + | Absolute | 9.61 (H)Comment: Testing | 1.9 0 - 7.40 | EXTERNAL | | | Segmented | performed at [facility], [address] | K/u L | LAB | | | Neutrophils | [address], | | | | | | [place] [address] | | | | + + +---- + + + | Absolute | 4.73 (H)Comment: Testing | 1.0 0 - 3.90 | EXTERNAL | | | Lymphocytes | performed at [facility], [address] | K/u L | LAB | | | | [address], | | | | | | [place] [address] | | | | + + +---- + + + | Absolute | 1.56 (H)Comment: Testing | 0.0 0 - 0.80 | EXTERNAL | | | Monocytes | performed at [facility], [address] | K/u L | LAB | | | | [address] [place], | | | | | | [place] [address] | | | | + + +---- + + + | Absolute | 0.09Comment: Testing | 0.0 0 - 0.50 | EXTERNAL | | | Eosinophils | performed at [facility], [address] | K/u L | LAB | | | | [address] [place], | | | | | | [place] [address] | | | | + + +---- + + + | Absolute | 0.17 (H)Comment: Testing | 0.0 0 - 0.10 | EXTERNAL | | | Basophils | performed at [facility], [address] | K/u L | LAB | | | | [address] [place], | | | | | | [place] [address] | | | | + + +---- + + + | RBC | 2+Comment: | | EXTERNAL | | | Morphology | ANISO1+HYPO1+MICRO2+TARG | | LAB | | | | ETNORMAL PLT | | | | | | MORPHTesting performed | | | | | | at [facility], [address] | | | | | | [place], | | | | | | [place] [address] | | | | | |2+ | | | | | |TARGET | | | | | |NORMAL PLT MORPH | | | | | |Testing performed at [facility], [facility] [place] [address] | | | | | | | | | | + + +---- + + + | Differentia | SLIDE SCANNED, AGREES | | EXTERNAL | | | l Comments | WITH AUTOMATED | | LAB | | | | RESULTS.Comment: Testing | | | | | | performed at [facility], [address] | | | | | | [address], | | | | | | [place] [address] | | | | + + +---- [...] L | LAB | | | | [facility], [address] | | | | | | [place] | | | | | | [address] | | | | + + +---- + + + | RED CELL | 3.47 (L)Comment: Testing | 3.7 0 - 5.10 | EXTERNAL | | | COUNT | performed at [facility], [address] | M/u L | LAB | | | | [address] [place], | | | | | | [place] [address] | | | | + + +---- + + + | Hgb | 8.2 (L)Comment: Testing | 11. 3 - 15.5 | EXTERNAL | | | | performed at [facility], [address] | g/d L | LAB | | | | [place] [place], | | | | | | [place] [address] | | | | + + +---- + + + | Hematocrit, | 27.5 (L)Comment: Testing | 34. 0 - 46.0 % | EXTERNAL | | | POC | performed at [facility], [address] | | LAB | | | | [address] [place], | | | | | | [place] [address] | | | | + + +---- + + + | MCV | 79.1 (L)Comment: Testing | 80. 0 - 100.0 fl | EXTERNAL | | | | performed at [facility], [address] | | LAB | | | | [place], | | | | | | [place] [address] | | | | + + +---- + + + | MCH | 23.6 (L)Comment: Testing | 27. 0 - 34.0 pg | EXTERNAL | | | | performed at [facility], [address] | | LAB | | | | [place], | | | | | | [place] [address] | | | | + + +---- + + + | MCHC | 29.8 (L)Comment: Testing | 32. 0 - 35.5 | EXTERNAL | | | | performed at [facility], [address] | g/d L | LAB | | | | [address] [place], | | | | | | [place] [address] | | | | + + +---- + + + | RDW-CV | 62.1 (H)Comment: Testing | 37 - 53 fl | EXTERNAL | | | | performed at [facility], [address] | | LAB | | | | [address] [place], | | | | | | [place] [address] | | | | + + +---- + + + | Platelet | 419 (H)Comment: Testing | 150 - 400 K/uL | EXTERNAL | | | Count | performed at [facility], [address] | | LAB | | | Plasma | [address] [place], | | | | | | [place] [address] | | | | + + +---- + + + | MPV | 8.3Comment: Testing | fl | EXTERNAL | | | | performed at [facility], [address] | | LAB | | | | [place], | | | | | | [place] [address] | | | | + + +---- + + + | Differentia | AUTOMATEDComment: | | EXTERNAL | | | l Type | Testing performed at | | LAB | | | | [facility], [address] | | | | | | [place] | | | | | | [address] | | | | + + +---- + + + | % Segmented | 82.12Comment: Testing | % | EXTERNAL | | | | performed at [facility], [address] | | LAB | | | Neutrophils | [address], | | | | | | [place] [address] | | | | + + +---- + + + | % | 10.53Comment: Testing | % | EXTERNAL | | | Lymphocytes | performed at [facility], [address] | | LAB | | | | [address], | | | | | | [place] [address] | | | | + + +---- + + + | % Monocytes | 6.70Comment: Testing | % | EXTERNAL | | | | performed at [facility], [address] | | LAB | | | | [address], | | | | | | [place] [address] | | | | + + +---- + + + | % | 0.05Comment: Testing | % | EXTERNAL | | | Eosinophils | performed at [facility], [address] | | LAB | | | | [place], | | | | | | [place] [address] | | | | + + +---- + + + | % Basophils | 0.60Comment: Testing | % | EXTERNAL | | | | performed at [facility], [address] | | LAB | | | | [place], | | | | | | [place] [address] | | | | + + +---- + + + | Absolute | 15.31 (H)Comment: | 1.9 0 - 7.40 | EXTERNAL | | | Segmented | Testing performed at | K/u L | LAB | | | Neutrophils | [facility], [address] | | | | | | [place] | | | | | | [address] | | | | + + +---- + + + | Absolute | 1.96Comment: Testing | 1.0 0 - 3.90 | EXTERNAL | | | Lymphocytes | performed at [facility], [address] | K/u L | LAB | | | | [address] [place], | | | | | | [place] [address] | | | | + + +---- + + + | Absolute | 1.25 (H)Comment: Testing | 0.0 0 - 0.80 | EXTERNAL | | | Monocytes | performed at [facility], [address] | K/u L | LAB | | | | [address], | | | | | | [place] [address] | | | | + + +---- + + + | Absolute | 0.01Comment: Testing | 0.0 0 - 0.50 | EXTERNAL | | | Eosinophils | performed at [facility], [address] | K/u L | LAB | | | | [address] [place], | | | | | | [place] [address] | | | | + + +---- + + + | Absolute | 0.11 (H)Comment: Testing | 0.0 0 - 0.10 | EXTERNAL | | | Basophils | performed at [facility], [address] | K/u L | LAB | | | | [address] [place], | | | | | | [place] [address] | | | | + + +---- + + + | RBC | 2+Comment: | | EXTERNAL | | | Morphology | ANISO2+HYPO1+TARGET1+POI | | LAB | | | | KNORMAL PLT MORPHTesting | | | | | | performed at [facility], [address] | | | | | | [address] [facility], | | | | | | [place] [address] | | | | | |TARGET | | | | | |1+ | | | | | |POIK | | | | | |NORMAL PLT MORPH | | | | | |Testing performed at [facility], [address] [place] [address] | | | | | | | [...] EXTERNAL | | | | performed at [facility];[address] | mmol/L | LAB | | | | [place] | | | | | | [address] | | | | + + + [...] EXTERNAL | | | | performed at [facility] | | LAB | | | | [address];[place], [place] | | | | | | [address] | | | | + + + [...] EXTERNAL | | | | performed at [facility];[address] | | LAB | | | | [address];[place], [place] | | | | | | [address] | | | | + + + [...] EXTERNAL | | | | performed at [facility];[address] | mmol/L | LAB | | | | [address];[place], [place] | | | | | | [address] | | | | + + + [...] EXTERNAL | | | | performed at [facility];[address] | | LAB | | | | [place] | | | | | | [address] | | | | + + + [...] EXTERNAL LAB | | Testing performed at [facility];[address] [place] [address];[place] [address] TOXIN A | | | NEGATIVE Testing performed | | | at [facility];[address] [place] [address];[place] [address] C DIFF INTERPRETATION | | | Positive [...] toxin. Testing | | | performed at [facility];[address] [facility];[place] [address] | | + + + + +---------+ [...] LAB | | C.diffAbnormal Testing performed at [facility];[address] [place] [address];[place], [place] | | | [phone] NAP1 BI 027 NAP1 BI | | | PRESUMPTIVE NEGATIVE Detection of 027 NAP1 BI strains of C. difficile | | | is presumptive and for epidemiological purposes and not intended to | | | guide or monitor treatment for C. difficile infections. Testing | | | performed at [facility];[address] [place] [address];[place] [address] | | + + + + +---------+ [...] EXTERNAL | | | | performed at [facility];[address] | g/dL | LAB | | | | [address] [place] | | | | | | [address] | | | | + + + + + + | Hematocrit, | 29.1 (L)Comment: Testing | 34.0 - 46.0 % | EXTERNAL | | | POC | performed at [facility];[address] | | LAB | | | | [address];[place], [place] | | | | | | [address] | | | | + + + [...] EXTERNAL | | | | performed at [facility];[address] | g/dL | LAB | | | | [address] [place] | | | | | | [address] | | | | + + + + + + | Hematocrit, | 28.9 (L)Comment: Testing | 34.0 - 46.0 % | EXTERNAL | | | POC | performed at [facility];[address] | | LAB | | | | [address] [place] | | | | | | [address] | | | | + + + [...] EXTERNAL | | | | performed at [facility];888 | mmol/L | LAB | | | | [address];[place], [place] | | | | | | [address] | | | | + + + [...] | | | | | performed at [facility];[address] | | | | | | [address];[place], [place] | | | | | | [address] | | | | + + + [...] [place] | | | | | | [address] | | | | + + +---- + + + | RED CELL | 3.89Comment: Testing | 3.7 0 - 5.10 | EXTERNAL | | | COUNT | performed at [facility], [address] | M/u L | LAB | | | | [address] [place], | | | | | | [place] [address] | | | | + + +---- + + + | Hgb | 9.1 (L)Comment: Testing | 11. 3 - 15.5 | EXTERNAL | | | | performed at [facility], [address] | g/d L | LAB | | | | [address] [place], | | | | | | [place] [address] | | | | + + +---- + + + | Hematocrit, | 30.7 (L)Comment: Testing | 34. 0 - 46.0 % | EXTERNAL | | | POC | performed at [facility], [address] | | LAB | | | | [address] [place], | | | | | | [place] [address] | | | | + + +---- + + + | MCV | 78.9 (L)Comment: Testing | 80. 0 - 100.0 fl | EXTERNAL | | | | performed at [facility], [address] | | LAB | | | | [address] [place], | | | | | | [place] [address] | | | | + + +---- + + + | MCH | 23.4 (L)Comment: Testing | 27. 0 - 34.0 pg | EXTERNAL | | | | performed at [facility], [address] | | LAB | | | | [address] [place], | | | | | | [place] [address] | | | | + + +---- + + + | MCHC | 29.7 (L)Comment: Testing | 32. 0 - 35.5 | EXTERNAL | | | | performed at [facility], [address] | g/d L | LAB | | | | [address] [place], | | | | | | [place] [address] | | | | + + +---- + + + | RDW-CV | 63.9 (H)Comment: Testing | 37 - 53 fl | EXTERNAL | | | | performed at [facility], [address] | | LAB | | | | [address] [place], | | | | | | [place] [address] | | | | + + +---- + + + | Platelet | 436 (H)Comment: Testing | 150 - 400 K/uL | EXTERNAL | | | Count | performed at [facility], [address] | | LAB | | | Plasma | [address] [place], | | | | | | [place] [address] | | | | + + +---- + + + | MPV | 8.1Comment: Testing | fl | EXTERNAL | | | | performed at [facility], [address] | | LAB | | | | [place] [place], | | | | | | [place] [address] | | | | + + +---- + + + | Differentia | AUTOMATEDComment: | | EXTERNAL | | | l Type | Testing performed at | | LAB | | | | [facility], [address] | | | | | | [place] | | | | | | [address] | | | | + + +---- + + + | % Segmented | 78.91Comment: Testing | % | EXTERNAL | | | | performed at [facility], [address] | | LAB | | | Neutrophils | [address] [place], | | | | | | [place] [address] | | | | + + +---- + + + | % | 15.10Comment: Testing | % | EXTERNAL | | | Lymphocytes | performed at [facility], [address] | | LAB | | | | [place] [place], | | | | | | [place] [address] | | | | + + +---- + + + | % Monocytes | 5.31Comment: Testing | % | EXTERNAL | | | | performed at [facility], [address] | | LAB | | | | [address], | | | | | | [place] [address] | | | | + + +---- + + + | % | 0.03Comment: Testing | % | EXTERNAL | | | Eosinophils | performed at [facility], [address] | | LAB | | | | [address], | | | | | | [place] [address] | | | | + + +---- + + + | % Basophils | 0.65Comment: Testing | % | EXTERNAL | | | | performed at [facility], [address] | | LAB | | | | [address], | | | | | | [place] [address] | | | | + + +---- + + + | Absolute | 18.14 (H)Comment: | 1.9 0 - 7.40 | EXTERNAL | | | Segmented | Testing performed at | K/u L | LAB | | | Neutrophils | [facility], [address] | | | | | | [place] | | | | | | [address] | | | | + + +---- + + + | Absolute | 3.47Comment: Testing | 1.0 0 - 3.90 | EXTERNAL | | | Lymphocytes | performed at [facility], [address] | [address] | LAB | | | | [address] [place], | | | | | | [place] [address] | | | | + + +---- + + + | Absolute | 1.22 (H)Comment: Testing | 0.0 0 - 0.80 | EXTERNAL | | | Monocytes | performed at [facility], [address] | [address] | LAB | | | | [address] [place], | | | | | | [place] [address] | | | | + + +---- + + + | Absolute | 0.01Comment: Testing | 0.0 0 - 0.50 | EXTERNAL | | | Eosinophils | performed at [facility], [address] | [address] | LAB | | | | [address] [place], | | | | | | [place] [address] | | | | + + +---- + + + | Absolute | 0.15 (H)Comment: Testing | 0.0 0 - 0.10 | EXTERNAL | | | Basophils | performed at [facility], [address] | LAB | | | | [address], | | | | | | [place] [address] | | | | + + +---- + + + | RBC | 2+Comment: | | EXTERNAL | | | Morphology | ANISO1+POLY2+HYPO1+MICRO | | LAB | | | | 1+TARGETNORMAL PLT | | | | | | MORPHTesting performed | | | | | | at [facility], [address] | | | | | | [facility], | | | | | | [place] [address] | | | | | |1+ | | | | | |MICRO | | | | | |1+ | | | | | |TARGET | | | | | |NORMAL PLT MORPH | | | | | |Testing performed at [facility], [address] [place] [address] | | | | | | | [...] | | | | | [place] [address] | | | | + + + [...] EXTERNAL | | | | performed at [facility], [address] | | LAB | | | | [place], | | | | | | [place] [address] | | | | + + + [...] | | | | | [place] [address] | | | | + + + + + + | K | 3.5Comment: Testing | 3.5 - 4.9 | EXTERNAL | | | | performed at [facility], [address] | mmol/L | LAB | | | | [place], | | | | | | [place] [address] | | | | + + + + + + | Cl | 105Comment: Testing | 99 - 109 mmol/L | EXTERNAL | | | | performed at [facility], [address] | | LAB | | | | [address], | | | | | | [place] [address] | | | | + + + + + + | CO2 | 22 (L)Comment: Testing | 23 - 32 mmol/L | EXTERNAL | | | | performed at [facility], [address] | | LAB | | | | [address], | | | | | | [place] [address] | | | | + + + + + + | Anion Gap | 14Comment: Testing | 5 - 20 mmol/L | EXTERNAL | | | | performed at [facility], [address] | | LAB | | | | [address], | | | | | | [place] [address] | | | | + + + + + + | Glucose, | 92Comment: Testing | 65 - 99 mg/dL | EXTERNAL | | | Fasting | performed at [facility], [address] | | LAB | | | | [address], | | | | | | [place] [address] | | | | + + + + + + | BUN | 36 (H)Comment: Testing | 8 - 25 mg/dL | EXTERNAL | | | | performed at [facility], [address] | | LAB | | | | [address], | | | | | | [place] [address] | | | | + + + + + + | Creatinine | 1.07 (H)Comment: Testing | 0.50 - 1.00 | EXTERNAL | | | | performed at [facility], [address] | mg/dL | LAB | | | | [address], | | | | | | [place] [address] | | | | + + + + + + | BUN/Creatin | 34Comment: Testing | | EXTERNAL | | | ine Ratio | performed at [facility], [address] | | LAB | | | | [address], | | | | | | [place] [address] | | | | + + + + + + | Calcium | 7.0 (L)Comment: Testing | 8.5 - 10.5 | EXTERNAL | | | | performed at [facility], [address] | mg/dL | LAB | | | | [address], | | | | | | [place] [address] | | | | + + + + + + | Protein, | 5.9 (L)Comment: Testing | 6.3 - 8.2 g/dL | EXTERNAL | | | Total | performed at [facility], [address] | | LAB | | | | [address], | | | | | | [place] [address] | | | | + + + + + + | Albumin | 2.9 (L)Comment: Testing | 3.6 - 5.0 g/dL | EXTERNAL | | | | performed at [facility], [address] | | LAB | | | | [address], | | | | | | [place] [address] | | | | + + + + + + | Globulin | 3.0Comment: Testing | 1.3 - 4.9 g/dL | EXTERNAL | | | | performed at [facility], [address] | | LAB | | | | [place], | | | | | | [place] [address] | | | | + + + + + + | A/G Ratio | 1.0Comment: Testing | 1.0 - 2.4 | EXTERNAL | | | | performed at [facility], [address] | | LAB | | | | [address], | | | | | | [place] [address] | | | | + + + + + + | Bilirubin | 0.8Comment: Testing | 0.1 - 1.5 mg/dL | EXTERNAL | | | Total | performed at [facility], [address] | | LAB | | | | [address], | | | | | | [place] [address] | | | | + + + + + + | ALP, | 148 (H)Comment: Testing | 35 - 115 U/L | EXTERNAL | | | External | performed at [facility], [address] | | LAB | | | [address], | | | | | | [place] [address] | | | | + + + + + + | AST | 34Comment: Testing | 10 - 45 U/L | EXTERNAL | | | | performed at [facility], [address] | | LAB | | | | [address], | | | | | | [place] [address] | | | | + + + + + + | ALT | 39Comment: Testing | 10 - 65 U/L | EXTERNAL | | | | performed at [facility], [address] | | LAB | | | | [address], | | | | | | [place] [address] | | | | + + + [...] [place], | | | | | | [place] [address] | | | | + + [...] EXTERNAL | | | | performed at [facility];[address] | g/dL | LAB | | | | [place] | | | | | | [address] | | | | + + + + + + | Hematocrit, | 32.0 (L)Comment: Testing | 34.0 - 46.0 % | EXTERNAL | | | POC | performed at [facility] [place];[address] | | LAB | | | | [place] | | | | | | [address] | | | | + + + [...] + | Tez Roper Conversion - 11/23/2018 9:20 PM PDT [place] [...] EXTERNAL | | | | performed at [facility], [address] | | LAB | | | | [place], | | | | | | [place] [address] | | | | + + + + + + | RBC, UA | 1-5Comment: Testing | 0 - 5 /hpf | EXTERNAL | | | | performed at [facility], [address] | | LAB | | | | [place], | | | | | | [place] [address] | | | | + + + + + + | Epithelial | 1-5Comment: Testing | /lpf | EXTERNAL | | | Cells | performed at [facility], [address] | | LAB | | | | [place], | | | | | | [place] [address] | | | | + + + + + + | Bacteria, | NONE SEENComment: | | EXTERNAL | | | UA | Testing performed at | | LAB | | | | [facility], [address] | | | | | | [place] | | | | | | [address] | | | | + + + [...] | | | | | [place] [address] | | | | + + + + + + | Clarity | TURBIDComment: Testing | | EXTERNAL | | | | performed at [facility], [address] | | LAB | | | | [address] [place], | | | | | | [place] [address] | | | | + + + + + + | Specific | 1.018Comment: Testing | 1.002 - 1.030 | EXTERNAL | | | [place] | performed at [facility], [address] | | LAB | | | | [place], | | | | | | [place] [address] | | | | + + + + + + | Leukocyte | LARGE (A)Comment: | | EXTERNAL | | | Esterase, | Testing performed at | | LAB | | | Urine | [facility], [address] | | | | | | [place] | | | | | | [address] | | | | + + + + + + | Nitrite, | NEGATIVEComment: Testing | | EXTERNAL | | | Urine | performed at [facility], [address] | | LAB | | | | [address], | | | | | | [place], [place] [address] | | | | + + + + + + | Urobilinoge | 0.2Comment: Testing | mg/dL | EXTERNAL | | | n, Urine | performed at [facility], [address] | | LAB | | | | [address], | | | | | | [place], [place] [address] | | | | + + + + + + | Protein, | 30 (A)Comment: Testing | mg/dL | EXTERNAL | | | Urine | performed at [facility], [address] | | LAB | | | | [address], | | | | | | [place] [address] | | | | + + + + + + | pH, Urine | 6.0Comment: Testing | 5.0 - 8.0 | EXTERNAL | | | | performed at [facility], [address] | | LAB | | | | [address], | | | | | | [place] [address] | | | | + + + + + + | Blood, | MODERATE (A)Comment: | | EXTERNAL | | | Urine | Testing performed at | | LAB | | | | [facility], [address] | | | | | | [place] | | | | | | [address] | | | | + + + + + + | Ketones | NEGATIVEComment: Testing | mg/dL | EXTERNAL | | | | performed at [facility], [address] | | LAB | | | | [address] [place], | | | | | | [place] [address] | | | | + + + + + + | Bilirubin, | SMALL (A)Comment: | | EXTERNAL | | | Urine | Testing performed at | | LAB | | | | [facility], [address] | | | | | | [place] | | | | | | [address] | | | | + + + + + + | Glucose, | NEGATIVEComment: Testing | mg/dL | EXTERNAL | | | Urine | performed at [facility], [address] | | LAB | | | | [address], | | | | | | [place] [address] | | | | + + + [...] | | | | | performed at [facility] [place];[address] | | | | | | [address], [place] | | | | | | [address] | | | | + + + [...] L | LAB | | | | [facility], [address] | | | | | | [place] | | | | | | [address] | | | | + + +---- + + + | RED CELL | 4.26Comment: Testing | 3.7 0 - 5.10 | EXTERNAL | | | COUNT | performed at [facility], [address] | M/u L | LAB | | | | [place], | | | | | | [place] [address] | | | | + + +---- + + + | Hgb | 10.3 (L)Comment: Testing | 11. 3 - 15.5 | EXTERNAL | | | | performed at [facility], [address] | g/d L | LAB | | | | [address] [place] [place], | | | | | | [place] [address] | | | | + + +---- + + + | Hematocrit, | 33.2 (L)Comment: Testing | 34. 0 - 46.0 % | EXTERNAL | | | POC | performed at [facility], [address] | | LAB | | | | [address] [place] [place], | | | | | | [place] [address] | | | | + + +---- + + + | MCV | 77.9 (L)Comment: Testing | 80. 0 - 100.0 fl | EXTERNAL | | | | performed at [facility], [address] | | LAB | | | | [address] [place], | | | | | | [place] [address] | | | | + + +---- + + + | MCH | 24.1 (L)Comment: Testing | 27. 0 - 34.0 pg | EXTERNAL | | | | performed at [facility], [address] | | LAB | | | | [address] [place], | | | | | | [place] [address] | | | | + + +---- + + + | MCHC | 30.9 (L)Comment: Testing | 32. 0 - 35.5 | EXTERNAL | | | | performed at [facility], [address] | g/d L | LAB | | | | [address] [place], | | | | | | [place] [address] | | | | + + +---- + + + | RDW-CV | 61.3 (H)Comment: Testing | 37 - 53 fl | EXTERNAL | | | | performed at [facility], [address] | | LAB | | | | [address] [place], | | | | | | [place] [address] | | | | + + +---- + + + | Platelet | 445 (H)Comment: Testing | 150 - 400 K/uL | EXTERNAL | | | Count | performed at [facility], [address] | | LAB | | | Plasma | [place], | | | | | | [place] [address] | | | | + + +---- + + + | MPV | 8.6Comment: Testing | fl | EXTERNAL | | | | performed at [facility], [address] | | LAB | | | | [place], | | | | | | [place] [address] | | | | + + +---- + + + | Differentia | MANUALComment: Testing | | EXTERNAL | | | l Type | performed at [facility], [address] | | LAB | | | | [place], | | | | | | [place] [address] | | | | + + +---- + + + | Segmented | 77Comment: Testing | % | EXTERNAL | | | Neutrophils | performed at [facility], [address] | | LAB | | | Manual | [place], | | | | | | [place] [address] | | | | + + +---- + + + | Lymphocytes | 14Comment: Testing | % | EXTERNAL | | | Manual | performed at [facility], [address] | | LAB | | | | [place], | | | | | | [place] [address] | | | | + + +---- + + + | Monocytes | 9Comment: Testing | % | EXTERNAL | | | Manual | performed at [facility], [address] | | LAB | | | | [place], | | | | | | [place] [address] | | | | + + +---- + + + | Absolute | 22.20 (H)Comment: | 1.9 0 - 7.40 | EXTERNAL | | | Neutrophils | Testing performed at | K/u L | LAB | | | | [facility], [address] | | | | | | [place] | | | | | | [address] | | | | + + +---- + + + | Absolute | 4.04 (H)Comment: Testing | 1.0 0 - 3.90 | EXTERNAL | | | Lymphocytes | performed at [facility], [address] | [address] | LAB | | | | [address] [place] [place], | | | | | | [place] [address] | | | | + + +---- + + + | Absolute | 2.59 (H)Comment: Testing | 0.0 0 - 0.80 | EXTERNAL | | | Monocytes | performed at [facility], [facility] | K/u L | LAB | | | | [address] [place] [place], | | | | | | [place] [address] | | | | + + +---- + + + | RBC | 1+Comment: | | EXTERNAL | | | Morphology | ANISO1+POIK2+HYPO1+MICRO | | LAB | | | | 1+TARGETNORMAL PLT | | | | | | MORPHTesting performed | | | | | | at [facility], [facility] [address] | | | | | | [place], | | | | | | [place] [address] | | | | | |1+ | | | | | |MICRO | | | | | |1+ | | | | | |TARGET | | | | | |NORMAL PLT MORPH | | | | | |Testing performed at [facility], [address] [place] [address] | | | | | | | [...] [address] | | | | + + + + + + | K | 2.9 (L)Comment: Testing | 3.5 - 4.9 | EXTERNAL | | | | performed at [facility], [address] | mmol/L | LAB | | | | [place], | | | | | | [place] [address] | | | | + + + + + + | Cl | 98 (L)Comment: Testing | 99 - 109 mmol/L | EXTERNAL | | | | performed at [facility], [address] | | LAB | | | | [address], | | | | | | [place], [place] [address] | | | | + + + + + + | CO2 | 22 (L)Comment: Testing | 23 - 32 mmol/L | EXTERNAL | | | | performed at [facility], [address] | | LAB | | | | [address], | | | | | | [place], [place] [address] | | | | + + + + + + | Anion Gap | 16Comment: Testing | 5 - 20 mmol/L | EXTERNAL | | | | performed at [facility], [address] | | LAB | | | | [address], | | | | | | [place] [address] | | | | + + + + + + | Glucose, | 89Comment: Testing | 65 - 99 mg/dL | EXTERNAL | | | Fasting | performed at [facility], [address] | | LAB | | | | [address], | | | | | | [place] [address] | | | | + + + + + + | BUN | 39 (H)Comment: Testing | 8 - 25 mg/dL | EXTERNAL | | | | performed at [facility], [address] | | LAB | | | [address], | | | | | | [place] [address] | | | | + + + + + + | Creatinine | 1.49 (H)Comment: Testing | 0.50 - 1.00 | EXTERNAL | | | | performed at [facility], [address] | mg/dL | LAB | | | | [address], | | | | | | [place] [address] | | | | + + + + + + | BUN/Creatin | 26Comment: Testing | | EXTERNAL | | | ine Ratio | performed at [facility], [address] | | LAB | | | | [address], | | | | | | [place] [address] | | | | + + + + + + | Calcium | 7.5 (L)Comment: Testing | 8.5 - 10.5 | EXTERNAL | | | | performed at [facility], [address] | mg/dL | LAB | | | | [place], | | | | | | [place] [address] | | | | + + + + + + | Protein, | 6.8Comment: Testing | 6.3 - 8.2 g/dL | EXTERNAL | | | Total | performed at [facility], [address] | | LAB | | | | [place], | | | | | | [place] [address] | | | | + + + + + + | Albumin | 3.4 (L)Comment: Testing | 3.6 - 5.0 g/dL | EXTERNAL | | | | performed at [facility], [address] | | LAB | | | | [place], | | | | | | [place] [address] | | | | + + + + + + | Globulin | 3.4Comment: Testing | 1.3 - 4.9 g/dL | EXTERNAL | | | | performed at [facility], [address] | | LAB | | | | [address], | | | | | | [place] [address] | | | | + + + + + + | A/G Ratio | 1.0Comment: Testing | 1.0 - 2.4 | EXTERNAL | | | | performed at [facility], [address] | | LAB | | | | [address], | | | | | | [place] [address] | | | | + + + + + + | Bilirubin | 0.8Comment: Testing | 0.1 - 1.5 mg/dL | EXTERNAL | | | Total | performed at [facility], [address] | | LAB | | | | [address], | | | | | | [place] [address] | | | | + + + + + + | ALP, | 183 (H)Comment: Testing | 35 - 115 U/L | EXTERNAL | | | External | performed at [facility], [address] | | LAB | | | | [place], | | | | | | [place] [address] | | | | + + + + + + | AST | 48 (H)Comment: Testing | 10 - 45 U/L | EXTERNAL | | | | performed at [facility], [address] | | LAB | | | | [address], | | | | | | [place] [address] | | | | + + + + + + | ALT | 56Comment: Testing | 10 - 65 U/L | EXTERNAL | | | | performed at [facility], [address] | | LAB | | | | [address], | | | | | | [place] [address] | | | | + + + [...] [place], | | | | | | [place] [address] | | | | + + + [...]
--- OUTSIDE RECORDS SUMMARY | ~2019-03-09 | XMS | Encounter Summary ---
Demographics + + + | Address | [address] | | | [place] [address] | + + + | Home Phone | | + + + | Preferred Language | Unknown | + + + | Marital Status | | + + + | Oriental Orthodox Affiliation | Unknown | + + + | Race | Unknown | + + + | Ethnic Group | Unknown | + + + Author + + + | Author | [facility] | | | and [place] | + + + | Organization | [facility] | | | [...] Team Providers + +------+ + | Care Lieutenant Colonel Name | Role | Phone | + +------+ + PCP | Unavailable | + +------+ + Encounter Details +--------+ + + + + | Date | Type | Department | Care Team | Description | +--------+ + + + + | 10/09/ | Hospital | [facility] | Conversion | | | 2016 | Encounter | [facility] | Transaction, | | | | | CLIN[facility] [address] | Provider Unknown | | | | | [place], [place] | | | | | | [address] | (Fax) | | | | | [phone] | | | +--------+ + + + [...] Conversion - 11/23/2018 9:20 PM PDT [id number] years FemaleXR | | CHEST 2 VIEW [...] | | | | | | [place] [facility] [place] [address] | | | | | | Blvd;[place] [address] | | | | + + + [...] | | | | [facility], [address] [facility] | | | | | | [place] | | | | | | [address] | | | | + + +---- + + + | RED CELL | 4.44Comment: Testing | 3.7 0 - 5.10 | EXTERNAL | | | COUNT | performed at [facility], [address] | M/u L | LAB | | | | [place], | | | | | | [place] [address] | | | | + + +---- + + + | Hgb | 9.2 (L)Comment: Testing | 11. 3 - 15.5 | EXTERNAL | | | | performed at [facility], [address] | g/d L | LAB | | | | [place], | | | | | | [place] [address] | | | | + + +---- + + + | Hematocrit, | 33.1 (L)Comment: RESULT | 34. 0 - 46.0 % | EXTERNAL | | | POC | VERIFIEDTesting | | LAB | | | | performed at [facility], [address] | | | | | | [place], | | | | | | [place] [address] | | | | + + +---- + + + | MCV | 74.6 (L)Comment: Testing | 80. 0 - 100.0 fl | EXTERNAL | | | | performed at [facility], [address] | | LAB | | | | [address] [place], | | | | | | [place] [address] | | | | + + +---- + + + | MCH | 20.7 (L)Comment: Testing | 27. 0 - 34.0 pg | EXTERNAL | | | | performed at [facility], [address] | | LAB | | | | [address] [place], | | | | | | [place] [address] | | | | + + +---- + + + | MCHC | 27.7 (L)Comment: Testing | 32. 0 - 35.5 | EXTERNAL | | | | performed at [facility], [address] | g/d L | LAB | | | | [address] [place], | | | | | | [place] [address] | | | | + + +---- + + + | RDW-CV | 62.6 (H)Comment: Testing | 37 - 53 fl | EXTERNAL | | | | performed at [facility], [address] | | LAB | | | | [address] [place], | | | | | | [place] [address] | | | | + + +---- + + + | Platelet | 538 (H)Comment: Testing | 150 - 400 K/uL | EXTERNAL | | | Count | performed at [facility], [address] | | LAB | | | Plasma | [place], | | | | | | [place] [address] | | | | + + +---- + + + | MPV | 7.9Comment: Testing | fl | EXTERNAL | | | | performed at [facility], [address] | | LAB | | | | [place], | | | | | | [place] [address] | | | | + + +---- + + + | Differentia | MANUALComment: Testing | | EXTERNAL | | | l Type | performed at [facility], [address] | | LAB | | | | [place], | | | | | | [place] [address] | | | | + + +---- + + + | Nucleated | 4 (H)Comment: Testing | /10 0WBC | EXTERNAL | | | Red Blood | performed at [facility], [address] | | LAB | | | Cells | [place], | | | | | | [place] [address] | | | | + + +---- + + + | Segmented | 59Comment: Testing | % | EXTERNAL | | | Neutrophils | performed at [facility], [address] | | LAB | | | Manual | [address], | | | | | | [place] [address] | | | | + + +---- + + + | % Bands | 1Comment: Testing | % | EXTERNAL | | | | performed at [facility], [address] | | LAB | | | [address], | | | | | | [place] [address] | | | | + + +---- + + + | Lymphocytes | 33Comment: Testing | % | EXTERNAL | | | Manual | performed at [facility], [address] | | LAB | | | | [address], | | | | | | [place] [address] | | | | + + +---- + + + | Monocytes | 7Comment: Testing | % | EXTERNAL | | | Manual | performed at [facility], [address] | | LAB | | | | [place], | | | | | | [place] [address] | | | | + + +---- + + + | Absolute | 11.45 (H)Comment: | 1.9 0 - 7.40 | EXTERNAL | | | Neutrophils | Testing performed at | K/u L | LAB | | | | [facility], [address] | | | | | | [place] | | | | | | [address] | | | | + + +---- + + + | Bands | 0.19Comment: Testing | 0.0 0 - 0.20 | EXTERNAL | | | Manual | performed at [facility], [address] | K/u L | LAB | | | | [place], | | | | | | [place] [address] | | | | + + +---- + + + | Absolute | 6.40 (H)Comment: Testing | 1.0 0 - 3.90 | EXTERNAL | | | Lymphocytes | performed at [facility], [address] | [address] | LAB | | | | [address], | | | | | | [place] [address] | | | | + + +---- + + + | Absolute | 1.36 (H)Comment: Testing | 0.0 0 - 0.80 | EXTERNAL | | | Monocytes | performed at [facility], [address] | [address] | LAB | | | | [address] [place], | | | | | | [place] [address] | | | | + + +---- + + + | Platelet | INCREASEDComment: | | EXTERNAL | | | Estimate | Testing performed at | | LAB | | | | [facility], [address] [facility] | | | | | | [place] | | | | | | [address] | | | | + + +---- + + + | RBC | 2+Comment: | | EXTERNAL | | | Morphology | ANISO1+POIK1+POLY3+HYPO2 | | LAB | | | | +MICRO1+TARGETNORMAL PLT | | | | | | MORPHTesting performed | | | | | | at [facility], [address] | | | | | | [place], | | | | | | [place] [address] | | | | | |3+ | | | | | |HYPO | | | | | |2+ | | | | | |MICRO | | | | | |1+ | | | | | |TARGET | | | | | |NORMAL PLT MORPH | | | | | |Testing performed at [facility], [address] [facility] [place] [address] | | | | | | | | | | + + +---- + + + | Differentia | SLIDE REFERRED TO | | EXTERNAL | | | l Comments | PATHOLOGIST FOR REVIEW | | LAB | | | | AND COMMENTComment: | | | | | | Testing performed at | | | | | | [facility], [address] [place] [address] | | | | | | [place] | | | | | | [address] | | | | + + +---- [...] LAB | | | | performed at [facility], [address] | | | | | | [place], | | | | | | [place] [address] | | | | + + + + + + | K | 4.7Comment: SPECIMEN | 3.5 - 4.9 | EXTERNAL | | | | SLIGHTLY | mmol/L | LAB | | | | HEMOLYZEDTesting | | | | | | performed at [facility], [address] | | | | | | [address], | | | | | | [place] [address] | | | | + + + + + + | Cl | 109Comment: Testing | 99 - 109 mmol/L | EXTERNAL | | | | performed at [facility], [address] | | LAB | | | | [address], | | | | | | [place] [address] | | | | + + + + + + | CO2 | 23Comment: Testing | 23 - 32 mmol/L | EXTERNAL | | | | performed at [facility], [address] | | LAB | | | | [address], | | | | | | [place] [address] | | | | + + + + + + | Anion Gap | 13Comment: Testing | 5 - 20 mmol/L | EXTERNAL | | | | performed at [facility], [address] | | LAB | | | | [address], | | | | | | [place] [address] | | | | + + + + + + | Glucose, | 89Comment: SPECIMEN | 65 - 99 mg/dL | EXTERNAL | | | Fasting | SLIGHTLY | | LAB | | | | HEMOLYZEDTesting | | | | | | performed at [facility], [address] | | | | | | [address], | | | | | | [place] [address] | | | | + + + + + + | BUN | 21Comment: Testing | 8 - 25 mg/dL | EXTERNAL | | | | performed at [facility], [address] | | LAB | | | | [address], | | | | | | [place] [address] | | | | + + + + + + | Creatinine | 0.9Comment: SPECIMEN | 0.50 - 1.00 | EXTERNAL | | | | SLIGHTLY | mg/dL | LAB | | | | HEMOLYZEDTesting | | | | | | performed at [facility], [address] | [address], | | | | | | [place] [address] | | | | + + + + + + | BUN/Creatin | 23Comment: Testing | | EXTERNAL | | | ine Ratio | performed at [facility], [address] | | LAB | | | | [address], | | | | | | [place] [address] | | | | + + + + + + | Calcium | 9.0Comment: Testing | 8.5 - 10.5 | EXTERNAL | | | | performed at [facility], [address] | mg/dL | LAB | | | | [address], | | | | | | [place] [address] | | | | + + + [...] [place], | | | | | | [place] [address] | | | | + + + [...]
--- OUTSIDE RECORDS SUMMARY | ~2019-03-09 | XMS | Clinical Summary ---
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
--- OUTSIDE RECORDS SUMMARY | ~2019-03-09 | XMS | Clinical Summary ---
Demographics + + + | Address | [address] | | | [place] [address] | + + + | Home Phone | | + + + | Preferred Language | Unknown | + + + | Marital Status | | + + + | Pentecostalism Affiliation | NRP | + + + | Race | White | + + + | Ethnic Group | Not or | + + + Author + + + | Author | [facility] | + + + | Organization | [facility] | + + + [...] [place], [place] | | | | | [address] | | + + + + + | Cami Sawyer | ECON | Unknown | | + + + + + Care Team Providers + +------+ + | Care Flour Tester Name | Role | Phone | + +------+ + | Aren Rose DO | PCP | | + +------+ + Source Comments [facility] is fully live on both EpicCare Ambulatory and EpicCare InPatient.[facility] Allergies + + + + [...] + | Overview: Vaccinations given at [facility] pneumonia and flu and | | at [facility] HIB and meningeal coccal 04/25 | [...] | | | | | | | [address] | | + +--------+ +--------+ + +--------+ | [employer] | [employer] | xxxxxxxxx-x | 04/11/19 | [phone] | [address] | Indemn | | [employer] | | | 13-Pre | 9 | [phone] | ity | | | | | sent | | [place], [place] | | | | | | | | [address] | | + +--------+ +--------+ + +--------+ [...] | 1956 | [phone] | [place] [address] | | | bianca | | | 8 (Home) | | | | | | | [phone] | | | | | | | [...]
--- OUTSIDE RECORDS SUMMARY | ~2019-03-09 | XMS | Encounter Summary ---
Demographics + + + | Address | [address] | | | [place] [address] | + + + | Home Phone | | + + + | Preferred Language | Unknown | + + + | Marital Status | | + + + | Baptism Affiliation [...] Team Providers + +------+ + | Care Multimedia Authoring Specialist Name | Role | Phone | + +------+ + PCP | Unavailable | + +------+ + Encounter Details +--------+ + + + + | Date | Type | Department | Care Team | Description | +--------+ + + + + | 03/01/ | Hospital | [facility] | Gabriel Myrick | Anemia, unspecified | | 2017 - | Encounter | [facility] | MD [address] | type; Current | | | | CARE FLOOR [address] | [address] | chronic use of | | 03/02/ | | [address] | [place] [address] | systemic steroids; | | 2017 | | [place], [place] | [phone] | Gastroesophageal | | | | [address] | | reflux disease | | | | [phone] | | without esophagitis; | | | [...] 1325 Date of Service: 03/02/17705 Status: Attested Architectural Technologist: EDE Otto (Resident-Y2) Cosigner: Chace Benson MD [...] with the progress note of Dr. Jimenez. [facility]: Hospitalist Resident Discharge Summary Date [...] being seen by Dr. Krishna GI in [place]. Antonia he previously underwent a small bowel [...] on file. Follow up: Alireza Krishna MD [address], [address] [address] Call office for appointment. Medication [...] COURT PLACE - [place] - [address], [place] [address] metroNIDAZOLE 500 MG tablet Na sulfate-K sulfate-Mg sulf 17.5-3.13-1.6 GM/180ML Soln neomycin 500 MG tablet scopolamine 1 mg/3days patch These medications were sent to [facility] [address] [place], [place] - [address] & [facility] [address] , [place] [address] acetaminophen 325 MG tablet lactobacillus granules potassium chloride SA 20 MEQ tablet You can get these medications from any pharmacy Bring a paper prescription for each of these medications enoxaparin 80 MG/0.8ML Soln Latosha Jimenez MD-R1 03/02/2017 1:09 PM I Thea Hendrix MD, have reviewed this note. Wset cummings in this encounter Medications at Time [...] 3:58 PM PSTFormatting of this note liz terrazsat be different from the original. Nurse Progress Note by Gloria Hernandez RN at 03/02/17 2438 Author: Gloria Hernandez RN Service: (none) Author Type: Registered Nurse Filed: 03/02/17 1600 Date of Service: 03/02/17 1558 Status: Signed Architectural Technologist: Gloria Hernandez RN (Registered Nurse) Discharge instructions given to pt and , all questions answered. VSS. Discharged jena e via private vehicle with . onver roshan Transaction, Provider Unknown - 03/02/2017 12:54 PM PST Case Management by Linh Perez RN at 03/02/17 0841 Author: Linh Perez RN Service: (none) Author Type: Registered Nurse Filed: 03/02/17 1257 Date of Service: 03/02/17 1254 Status: Signed Architectural Technologist: Linh Perez RN (Registered Nurse) Pt to d/c home today with Lovenox. 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 Faxed script to RX pharmacy for russell check. Notified Marilin with [facility] of d/c. Faxed resumption order to [facility]. Family to trasnport pt home KAMRYN signed Nika Do Patel [facility] - 03/02/2017 12:47 PM PSTFormatting of this note might be different from the or iginal. Progress Notes by Do Hussein RPH at 03/02/17 770 Author: Do Hussein RPH Service: Pharmacy Author Type: Pharmacist Filed: 03/02/17 124 Date of Service: 03/02/171246 Status: Signed Architectural Technologist: Do Hussein RPH (Pharmacist) INITIATION OF Parenteral Nutrition: Smita Willingham 61 y.o. female Height: Ht Readings from Last 1 Encounters: 03/02/17 1.727 m (5' 8") Weight: Wt Readings from Last 1 Encounters: 03/02/17 74.2 kg (163 lb 9.3 oz) Body Mass Index: Body mass index is 24.87 kg/m. Bagley Body Weight: 63.9kg Adjusted Body Weight: 68.0kg Creatinine: CREATININE Date Value Ref Range Status 03/02/2017 0.7 0.50 - 1.00 mg/dL Final Estimated CrCl : Serum creatinine: 0.7 mg/dL 03/02/17 0405 Estimated creatinine clearance: 85.1 mL/min Estimated Needs: Basal Energy Expenditure (BEE): 1409kcal BEE x Major Non - Elective Surgery: = 6752-1587 Kcal needed per day Protein Requirements: Infection, Major Surgery, Cancer: 1.3 - 1.6 g/kg/day PN Line: Central Dextrose: 20% Amino Acids: 6% Lipid 20% 250 mL PN Goal Rate: 65 mL/hr PN Rate on Day 1: 25 mL/hr for 24 hours Amount of non-protein calories and grams of protein this provides: 1561 kcal + 93.6gm Pk=125; CO2=17. Initiating TPN with low Cl formula Pharmacy will continue to follow Pharmacist: DO HUSSEIN 03/02/2017 12:43 PM onversio n Transaction, Provider Unknown - 03/02/2017 11:58 AM PSTFormatting of this note might be di fferent from the original. Progress Notes by Honey Gamboa RD at 03/02/17 8136 Author: Honey Gamboa RD Service: (none) Author Type: Registered Dietitian Filed: 03/02/17 1329 Date of Service: 03/02/171157 Status: Signed Architectural Technologist: Honey Gamboa RD (Registered Dietitian) 03/02/17 1131 Subjective Timepoint Admit (Consult: home TPN, wt loss) Pt c/o Pt with hx of Crohn's and chronic diarrhea. She states she has been on TPN for 3 we eks and she has not been eating. Pt currently feeling scared to eat, as she does not want i ncreased diarrhea. Diet Experience Home Nutrition Support TPN from [facility] in [place]: 275 g Dextrose, 90 g AA, 40 [...] Management by Linh Perez RN at 03/02/17 4686 Author: Linh Perez RN Service: (none) Author Type: Registered Nurse Filed: 03/02/17 1141 Date of Service: 03/02/17 1129 Status: Signed Architectural Technologist: Linh Perez RN (Registered Nurse) 03/02/17 1100 [...] colostmy surgery on Tuesday. Pt lives in [place] with spouse. Pt is indep with all her ADL's. No use of home O 2, no HD. Pt does use a cane and walker as needed. Pt established on coumadin with [place] [facility]. Patient's PCP is: Dr Davina Cox/[facility]. Pt has appnt on 03/23 to est [...] Date of Service: 03/02/17 1037 Status: Signed Architectural Technologist: Ryan Ariza RN (Registered Nurse) Infection Prevention [...] 03/01/172257 Date of Service: 03/01/172257 Status: Signed Architectural Technologist: Hamilton Drummond RPH (Pharmacist) Note ccl 76.4ml/min meds reviewed pharmacy will follow rdc 2258 onver roshan Transaction, Provider Unknown - 03/01/2017 10:35 PM PST Nurse Progress Note by Mila Dolan RN at 03/01/172234 Author: Mila Dolan RN Service: (none) Author Type: Registered Nurse Filed: 03/02/17 0625 Date of Service: 03/01/172234 Status: Addendum Architectural Technologist: Mila Dolan RN (Registered Nurse) Related Notes: Original Note by Mila Dolan RN (Registered Nurse) filed at 03/02/171 9 4096 Pt transported to room 4439, via stretcher. [...] [address] | | | | | | [place] [address] | | | | | | [phone] | | | | | | | [...] | | | | | | [address];[place] | | | | | | [address] | | | | + + + [...] | performed at [facility], [address] | | | | | | [address], | | | | | | [place] [address] | | | | + + + [...] [facility], [address] | uIU/mL | LAB | | | | [address], | | | | | | [place] [address] | | | | + + + [...] | | | | | [place] [address] | | | | + + + [...] | | | | | [place] [address] | | | | + + + [...] | | at [facility], [address] | | | | | | [place], | | | | | | [place] [address] | | | | + + [...] | | | | Y[facility] ED @ [address] | | | [...] | | | | | | [facility];[address] [place] [address] | | | | | | [facility];[place] [address] | | | | + + + [...]
--- OUTSIDE RECORDS SUMMARY | ~2019-03-09 | XMS | Encounter Summary ---
Demographics + + + | Address | [address] | | | [place] [address] | + + + | Home Phone [...] Team Providers + +------+ + | Care Printed Circuit Boards Plasma Etcher Name | Role | Phone | + +------+ + PCP | Unavailable | + +------+ + Encounter Details +--------+ + + + + | Date | Type | Department | Care Team | Description | +--------+ + + + + | 03/01/ | Hospital | [facility] | Conversion | | | 2017 | Encounter | [facility] | Transaction, | | | | | CLINIC [address] | Provider Unknown | | | | | [place], [place] | | | | | | [address] | (Fax) | | | | | [phone] | | | +--------+ + + + [...] | | | PCRAbnormal Testing performed at [facility];[address] [place] [address];[place] [address] | | + + + + +---------+ [...] | | | | | performed at [facility];[address] | | | | | | [address];[place], [place] | | | | | | [address] | | | | + + + [...] | | at [facility];[address] [place] [address] | | | | | | [facility];[place] [address] | | | | + + + [...]
--- OUTSIDE RECORDS SUMMARY | ~2019-03-09 | XMS | Encounter Summary ---
Demographics + + + | Address | [address] | | | [place] [address] | + + + | Home Phone [...] Team Providers + +------+ + | Care [employer] Name | Role | Phone | + [...] Unknown | | | | | [place], [place] | [phone] | | | | | [address] | | | | | | [phone] | | | +--------+ + + + [...]
--- OUTSIDE RECORDS SUMMARY | ~2019-03-09 | XMS | Encounter Summary ---
Demographics + + + | Address | [address] | | | [place] [address] | + + + | Home Phone | | + + + | Preferred Language | Unknown | + + + | Marital Status | | + + + | Cheondoism Affiliation | Unknown | + + + | Race | Unknown | + + + | Ethnic Group | Unknown | + + + Author + + + | Author | [facility] | | | and [place] | + + + | Organization | [facility] | | | [...] Team Providers + +------+ + | Care Stereotyper Apprentice Name | Role | Phone | + +------+ + PCP | Unavailable | + +------+ + Encounter Details +--------+ + + + + | Date | Type | Department | Care Team | Description | +--------+ + + + + | 04/10/ | Hospital | [facility] | Ro Davidson MD | Pyelonephritis | | 2015 - | Encounter | MEDICAL CENTER | [address] | | | | | CLINICAL DECISION | [place] [address] | | | 07/22/ | | [address] | [phone] | | | 2014 | | [place], [place] | | | | | | [address] | | | | | | [phone] | | | +--------+ + + + [...] Summaries by Compa Jules MD at 07/22/14 0779 Author: Compa Jules MD Service: (none) Author Type: Physician Filed: 08/14/14 1204 Date of Service: 07/22/14 2549 Status: Signed Fretted String Instrument Repairer: Compa Jules MD (Physician) Related Notes: Original Note by Compa Jules MD (Physician) filed at 07/22/14 1259 [facility] Service: Hospitalist Physician Discharge Summary Patient ID: Mackenzie Willingham [id number] 58 y.o. 1955 Admit date: 07/19/2014 Discharge [...] Follow up: Neel Fernandes MD [address] [place] [address] [place] [address] Raphael Gan DO [address] [place] [address] In 2 weeks Dictation and document management consultant or software, [employer], used which may contain error for similar [...] Procedure: ESOPHAGOGASTRODUODENOSCOPY; Surgeon: Bony Petty MD; Location: [facility] BEDSIDE PROCEDURE; Service: Gastroenterology; Laterality: N/A; Laparotomy N/A 04/23/2014 Procedure: EXPLORATION - LAPAROTOMY; Surgeon: Bogdan Moser DO; Location: [facility] MAIN OR; Service: General; Laterality: N/A; Splenectomy, total N/A 04/23/2014 Procedure: SPLENECTOMY; Surgeon: Bogdan Moser DO; Location: [facility] MAIN OR; Service: General; [...] are the prescriptions that you need to turkey picker. You may get the following medications [...] (none) Author Type: Registered Nurse Filed: 07/22/14 1152 Date of Service: 07/22/141334 Status: Signed Fretted String Instrument Repairer: Leelee Fermin RN (Registered Nurse) Patient received discharge teaching with no questions or concerns. Patient left via private vehicle with daughter. Leelee Fermin RN onver roshan Transaction, Provider Unknown - 07/22/2014 1:06 PM PDT Case Management by Kateryna Salazar RN at 07/22/14 0408 Author: Kateryna Salazar RN Service: (none) Author Type: Registered Nurse Filed: 07/22/14 1307 Date of Service: 07/22/14 1306 Status: Signed Fretted String Instrument Repairer: Kateryna Salazar RN (Registered Nurse) Patient requesting [...] Date of Service: 07/22/14 1155 Status: Signed Fretted String Instrument Repairer: Nadiya Smith PT (Physical Therapist) 07/22/14 1155 [...] Date of Service: 07/22/14 1043 Status: Signed Fretted String Instrument Repairer: Raphael Gan DO (Physician) [facility] Service: Infectious Disease Progress Note Hospital Day: LOS: 3 days Post-Op Day: * No surgery found * SUBJECTIVE Patient Summary: 58 y.o. female with significant past medical history of Crohn's dis ease on chronic prednisone 15 mg daily, COPD, gastroesophageal reflux disease, allergies to penicillin, levofloxacin, erythromycin who presented to [facility] with we akness and urinary incontinence. [...] 07/22/2014 EGFR >60 07/22/2014 Urine culture from [facility] shows pansensitive Escherichia coli with the [...] Notes by Compa Jules MD at 07/21/14 4357 Author: Compa Julse MD Service: (none) Author Type: Physician Filed: 07/21/14 1124 Date of Service: 07/21/14 1104 Status: Signed Fretted String Instrument Repairer: Compa Jules MD (Physician) [facility] Service: Hospitalist Progress Note Hospital Day: LOS: 2 days Consultants: Treatment Team: Consulting Physician: Raphael Gan DO Admitting Provider: Ro Davidson MD The first problem in assessment is the principal problem. ASSESSMENT/ PLAN 1. Systemic inflammatory response syndrome, urinary tract infection. Leukocytosis improving (patient does have some chronic leukocytosis). Continue with vancomycin, aztreonam for now. Received cultures, blood and urine from [place]. Blood cultures negative so far. Urine culture positive for lactose ruffler, sensitivities pending. Patient has multiple allergie s. [...] 4 months. She has to follow with medical customer service representative. 5. Chronic congestive heart failure, currently stable. Not decompensated at this point. Disposition: Home. Possibly the next 1-2 days Code Status: Full Code Dictation and document management consultant or software, [employer], used which may contain error for similar [...] Date of Service: 07/21/14 1018 Status: Signed Fretted String Instrument Repairer: Vale Ladd RN (Registered Nurse) Pt much more awake and active today. Attempted to eat breakfast, using the commode to toil et, took shower. Still complains of headache and nausea. Vale Salgado onver roshan Transaction, Provider Unknown - 07/21/2014 9:16 AM PDT Case Management by LEVI Jerry at 07/21/14 0916 Author: LEVI Jerry Service: (none) Author Type: Drive In Waiter/Waitress Filed: 07/21/1420 Date of Service: 07/21/14915 Status: Signed Fretted String Instrument Repairer: LEVI Jerry (Drive In Waiter/Waitress) 07/21/14913 Discharge Planning Evaluation Admitting Diagnosis (Sepsis [...] care /care: Pt lives with her in [place]. Can provide all self-care/ADLs patients primary care [...] disease with hiatal hernia , Patient's insurance: Medicare[facility] recommendations / DME recommendations: N/A - No DME indicated at this time Community resources: Patient just started PT at the "rec center" in [place]. Assistance in transportation: Family can transport home. CM also spoke with pt's RN, Vale and she did not identify any d/c needs at this time. LEVI Jerry Compa Nam MD - 07/20/2014 4:57 PM PDTFormatting of this note might be different from the origi nal. Progress Notes by Compa Jules MD at 07/20/14 069 Author: Compa Jules MD Service: (none) Author Type: Physician Filed: 08/04/14 1307 Date of Service: 07/20/141656 Status: Signed Fretted String Instrument Repairer: Compa Jules MD (Physician) Related Notes: Original Note by Compa Jules MD (Physician) filed at 07/20/14 1700 [facility] Service: Hospitalist Progress Note Hospital Day: LOS: [...] 4 months. She has to follow with medical customer service representative. 5. Chronic congestive heart failure, currently stable. Not decompensated at this point. Disposition: Home. Pending above Code Status: Full Code Dictation and document management consultant or software, [employer], used which may contain error for similar [...] 1334 Date of Service: 07/20/141316 Status: Signed Fretted String Instrument Repairer: Vale Ladd RN (Registered Nurse) Pt educated and encouraged to get out of bed and walk or sit in chair. Pt refused. Explai maber risk for pneumonia, blood clot, and loss [...] 07/20/14715 Date of Service: 07/20/14715 Status: Signed Fretted String Instrument Repairer: Paula Barnes RPH (Pharmacist) Late entry for Vancomycin started last night by Crispin LUNA. Initiation of Vancomycin Pharmacy Dosing Mackenzie Willingham 58 y.o. female 1.753 m (5' 9") 64.32 kg (141 lb 12.8 oz) Body mass index is 20.93 kg/(m^2). [place] Body Weight: 66.2 kg Adjusted Body Weight: 64.3 kg CREATININE Date Value Ref Range Status 07/20/2014 0.76 0.50 - 1.00 mg/dL Final Testing performed at [facility];[address] [facility];[place] [address] Estimated CrCl : CREATININE: 0.76 (07/20/14 0354) [...] 07/19/142055 Date of Service: 07/19/142055 Status: Signed Fretted String Instrument Repairer: Hamilton Drummond RPH (Pharmacist) Note ccl 90.2ml/min meds reviewed Pharmacy will follow [facility] 2054 docume nted in this encounter Plan [...] | Testing performed | | | at [facility], [address] [place] [address] | | + + + + +---------+ [...] EXTERNAL | | | | performed at [facility], [address] | | LAB | | | | [address] [place], | | | | | | [place] [address] | | | | + + + + + + | Clarity | CLEARComment: Testing | | EXTERNAL | | | | performed at [facility], [address] | | LAB | | | | [address], | | | | | | [place] [address] | | | | + + + + + + | Specific | 1.009Comment: Testing | 1.002 - 1.030 | EXTERNAL | | | [place] | performed at [facility], [address] | | LAB | | | | [address] [place], | | | | | | [place] [address] | | | | + + + + + + | Leukocyte | MODERATE (A)Comment: | | EXTERNAL | | | Esterase, | Testing performed at | | LAB | | | Urine | [facility], [address] [facility] | | | | | | [place] | | | | | | [address] | | | | + + + + + + | Nitrite, | NEGATIVEComment: Testing | | EXTERNAL | | | Urine | performed at [facility], [address] | | LAB | | | | [address], | | | | | | [place] [address] | | | | + + + + + + | Urobilinoge | 0.2Comment: Testing | mg/dL | EXTERNAL | | | n, Urine | performed at [facility], [address] | | LAB | | | | [address] [place], | | | | | | [place] [address] | | | | + + + + + + | Protein, | NEGATIVEComment: Testing | mg/dL | EXTERNAL | | | Urine | performed at [facility], [address] | | LAB | | | | [address], | | | | | | [place] [address] | | | | + + + + + + | pH, Urine | 6.0Comment: Testing | 5.0 - 8.0 | EXTERNAL | | | | performed at [facility], [address] | | LAB | | | [address], | | | | | | [place] [address] | | | | + + + + + + | Blood, | NEGATIVEComment: Testing | | EXTERNAL | | | Urine | performed at [facility], [address] | | LAB | | | | [address], | | | | | | [place], [place] [address] | | | | + + + + + + | Ketones | NEGATIVEComment: Testing | mg/dL | EXTERNAL | | | | performed at [facility], [address] | | LAB | | | | [address], | | | | | | [place], [place] [address] | | | | + + + + + + | Bilirubin, | NEGATIVEComment: Testing | | EXTERNAL | | | Urine | performed at [facility], [address] | | LAB | | | | [address], | | | | | | [place], [place] [address] | | | | + + + + + + | Glucose, | NEGATIVEComment: Testing | mg/dL | EXTERNAL | | | Urine | performed at [facility], [address] | | LAB | | | | [address], | | | | | | [place], [place] [address] | | | | + + + [...] | | | | | [place] [address] | | | | + + + + + + | RBC, UA | 16-25Comment: Testing | 0 - 5 /hpf | EXTERNAL | | | | performed at [facility], [address] | | LAB | | | | [address], | | | | | | [place] [address] | | | | + + + + + + | Epithelial | 26-50Comment: Testing | /lpf | EXTERNAL | | | Cells | performed at [facility], [address] | | LAB | | | | [address], | | | | | | [place] [address] | | | | + + + + + + | Bacteria, | NONE SEENComment: | | EXTERNAL | | | UA | CULTURE TO FOLLOWTesting | | LAB | | | | performed at [facility], [address] | | | | | | [address], | | | | | | [place] [address] | | | | + + + + + + | HYALINE | NONE SEENComment: | | EXTERNAL | | | CASTS UA | Testing performed at | | LAB | | | | [facility], [address] [facility] | | | | | | [place] | | | | | | [address] | | | | + + + [...] | | | | performed at [facility] | | | | | | [facility];[place], [place] | | | | | | [address] | | | | + + + [...] [place] | | | | | | [address] | | | | + + + + + + | RED CELL | 4.06Comment: Testing | 3.70 - 5.10 | EXTERNAL | | | COUNT | performed at [facility], [address] | M/uL | LAB | | | | [address], | | | | | | [place] [address] | | | | + + + + + + | Hgb | 12.5Comment: Testing | 11.3 - 15.5 | EXTERNAL | | | | performed at [facility], [address] | g/dL | LAB | | | | [address], | | | | | | [place] [address] | | | | + + + + + + | Hematocrit, | 40.1Comment: Testing | 34.0 - 46.0 % | EXTERNAL | | | POC | performed at [facility], [address] | | LAB | | | | [address], | | | | | | [place] [address] | | | | + + + + + + | MCV | 98.6Comment: Testing | 80.0 - 100.0 fl | EXTERNAL | | | | performed at [facility], [address] | | LAB | | | | [address], | | | | | | [place] [address] | | | | + + + + + + | MCH | 30.8Comment: Testing | 27.0 - 34.0 pg | EXTERNAL | | | | performed at [facility], [address] | | LAB | | | | [address], | | | | | | [place] [address] | | | | + + + + + + | MCHC | 31.2 (L)Comment: Testing | 32.0 - 35.5 | EXTERNAL | | | | performed at [facility], [address] | g/dL | LAB | | | | [address], | | | | | | [place] [address] | | | | + + + + + + | RDW-CV | 55.1 (H)Comment: Testing | 37 - 53 fl | EXTERNAL | | | | performed at [facility], [address] | | LAB | | | | [address], | | | | | | [place] [address] | | | | + + + + + + | Platelet | 309Comment: Testing | 150 - 400 K/uL | EXTERNAL | | | Count | performed at [facility], [address] | | LAB | | | Plasma | [address], | | | | | | [place] [address] | | | | + + + + + + | MPV | 8.7Comment: Testing | fl | EXTERNAL | | | | performed at [facility], [address] | | LAB | | | | [address], | | | | | | [place] [address] | | | | + + + + + + | Differentia | AUTOMATEDComment: | | EXTERNAL | | | l Type | Testing performed at | | LAB | | | | [facility], [address] | | | | | | [place] | | | | | | [address] | | | | + + + + + + | % Segmented | 72.50Comment: Testing | % | EXTERNAL | | | | performed at [facility], [address] | | LAB | | | Neutrophils | [address] [place], | | | | | | [place] [address] | | | | + + + + + + | % | 19.86Comment: Testing | % | EXTERNAL | | | Lymphocytes | performed at [facility], [address] | | LAB | | | | [address] [place], | | | | | | [place] [address] | | | | + + + + + + | % Monocytes | 7.00Comment: Testing | % | EXTERNAL | | | | performed at [facility], [address] | | LAB | | | | [address], | | | | | | [place] [address] | | | | + + + + + + | % | 0.21Comment: Testing | % | EXTERNAL | | | Eosinophils | performed at [facility], [address] | | LAB | | | | [address], | | | | | | [place] [address] | | | | + + + + + + | % Basophils | 0.43Comment: Testing | % | EXTERNAL | | | | performed at [facility], [address] | | LAB | | | | [address], | | | | | | [place] [address] | | | | + + + + + + | Absolute | 8.17 (H)Comment: Testing | 1.90 - 7.40 | EXTERNAL | | | Segmented | performed at [facility], [address] | K/uL | LAB | | | Neutrophils | [address], | | | | | | [place] [address] | | | | + + + + + + | Absolute | 2.24Comment: Testing | 1.00 - 3.90 | EXTERNAL | | | Lymphocytes | performed at [facility], [address] | K/uL | LAB | | | | [address], | | | | | | [place] [address] | | | | + + + + + + | Absolute | 0.79Comment: Testing | 0.00 - 0.80 | EXTERNAL | | | Monocytes | performed at [facility], [address] | K/uL | LAB | | | | [address], | | | | | | [place] [address] | | | | + + + + + + | Absolute | 0.02Comment: Testing | 0.00 - 0.50 | EXTERNAL | | | Eosinophils | performed at [facility], [address] | K/uL | LAB | | | | [address], | | | | | | [place] [address] | | | | + + + + + + | Absolute | 0.05Comment: Testing | 0.00 - 0.10 | EXTERNAL | | | Basophils | performed at [facility], [address] | K/uL | LAB | | | | [address], | | | | | | [place] [address] | | | | + + [...] EXTERNAL | | | | performed at [facility], [address] | | LAB | | | | [address], | | | | | | [place] [address] | | | | + + + [...] EXTERNAL | | | | performed at [facility], [address] | | LAB | | | | [address], | | | | | | [place] [address] | | | | + + + [...] | | | | | [place] [address] | | | | + + + + + + | K | 3.9Comment: Testing | 3.5 - 4.9 | EXTERNAL | | | | performed at [facility], [address] | mmol/L | LAB | | | | [address], | | | | | | [place] [address] | | | | + + + + + + | Cl | 106Comment: Testing | 99 - 109 mmol/L | EXTERNAL | | | | performed at [facility], [address] | | LAB | | | | [address], | | | | | | [place] [address] | | | | + + + + + + | CO2 | 20 (L)Comment: Testing | 23 - 32 mmol/L | EXTERNAL | | | | performed at [facility], [address] | | LAB | | | | [address], | | | | | | [place] [address] | | | | + + + + + + | Anion Gap | 8Comment: Testing | 5 - 20 mmol/L | EXTERNAL | | | | performed at [facility], [address] | | LAB | | | | [address], | | | | | | [place] [address] | | | | + + + + + + | Glucose, | 98Comment: Testing | 65 - 99 mg/dL | EXTERNAL | | | Fasting | performed at [facility], [address] | | LAB | | | | [address], | | | | | | [place] [address] | | | | + + + + + + | BUN | 19Comment: Testing | 8 - 25 mg/dL | EXTERNAL | | | | performed at [facility], [address] | | LAB | | | | [address], | | | | | | [place] [address] | | | | + + + + + + | Creatinine | 0.69Comment: Testing | 0.50 - 1.00 | EXTERNAL | | | | performed at [facility], [address] | mg/dL | LAB | | | | [address], | | | | | | [place] [address] | | | | + + + + + + | BUN/Creatin | 28Comment: Testing | | EXTERNAL | | | ine Ratio | performed at [facility], [address] | | LAB | | | | [address], | | | | | | [place] [address] | | | | + + + + + + | Calcium | 8.5Comment: Testing | 8.5 - 10.5 | EXTERNAL | | | | performed at [facility], [address] | mg/dL | LAB | | | | [address], | | | | | | [place] [address] | | | | + + + + + + | Protein, | 5.9 (L)Comment: Testing | 6.3 - 8.2 g/dL | EXTERNAL | | | Total | performed at [facility], [address] | | LAB | | | | [address], | | | | | | [place] [address] | | | | + + + + + + | Albumin | 2.8 (L)Comment: Testing | 3.6 - 5.0 g/dL | EXTERNAL | | | | performed at [facility], [address] | | LAB | | | [address], | | | | | | [place] [address] | | | | + + + + + + | Globulin | 3.1Comment: Testing | 1.3 - 4.9 g/dL | EXTERNAL | | | | performed at [facility], [address] | | LAB | | | [address], | | | | | | [place] [address] | | | | + + + + + + | A/G Ratio | 0.9 (L)Comment: Testing | 1.0 - 2.4 | EXTERNAL | | | | performed at [facility], [address] | | LAB | | | | [address], | | | | | | [place] [address] | | | | + + + + + + | Bilirubin | 0.4Comment: Testing | 0.1 - 1.5 mg/dL | EXTERNAL | | | Total | performed at [facility], [address] | | LAB | | | | [address], | | | | | | [place] [address] | | | | + + + + + + | ALP, | 124 (H)Comment: Testing | 35 - 115 U/L | EXTERNAL | | | External | performed at [facility], [address] | | LAB | | | | [address], | | | | | | [place] [address] | | | | + + + + + + | AST | 18Comment: Testing | 10 - 45 U/L | EXTERNAL | | | | performed at [facility], [address] | | LAB | | | | [address], | | | | | | [place] [address] | | | | + + + + + + | ALT | 13Comment: Testing | 10 - 65 U/L | EXTERNAL | | | | performed at [facility], [address] | | LAB | | | | [facility], | | | | | | [place] [address] | | | | + + + [...] | | | | | | at [facility], [address] | | | | | | [employer] [facility], | | | | | | [place] [address] | | | | + + + [...] | | | | performed at [facility];[address] | | | | | | [address] [facility];[place], [place] | | | | | | [address] | | | | + + + [...] K/uL | LAB | | | | [facility];[address];[place] [address] | | | | + + + + + + | RED CELL | 4.10Comment: Testing | 3.70 - 5.10 | EXTERNAL | | | COUNT | performed at [facility];[address] | M/uL | LAB | | | | [address];[place] | | | | | | [address] | | | | + + + + + + | Hgb | 12.9Comment: Testing | 11.3 - 15.5 | EXTERNAL | | | | performed at [facility];[address] | g/dL | LAB | | | | [address];[place] | | | | | | [address] | | | | + + + + + + | Hematocrit, | 40.0Comment: Testing | 34.0 - 46.0 % | EXTERNAL | | | POC | performed at [facility];[address] | | LAB | | | | [address];[place] | | | | | | [address] | | | | + + + + + + | MCV | 97.6Comment: Testing | 80.0 - 100.0 fl | EXTERNAL | | | | performed at [facility];[address] | | LAB | | | | [address];[place] | | | | | | [address] | | | | + + + + + + | MCH | 31.4Comment: Testing | 27.0 - 34.0 pg | EXTERNAL | | | | performed at [facility];[address] | | LAB | | | | [address];[place] | | | | | | [address] | | | | + + + + + + | MCHC | 32.1Comment: Testing | 32.0 - 35.5 | EXTERNAL | | | | performed at [facility];[address] | g/dL | LAB | | | | [address];[place] | | | | | | [address] | | | | + + + + + + | RDW-CV | 56.0 (H)Comment: Testing | 37 - 53 fl | EXTERNAL | | | | performed at [facility];[address] | | LAB | | | | [address];[place] | | | | | | [address] | | | | + + + + + + | Platelet | 323Comment: Testing | 150 - 400 K/uL | EXTERNAL | | | Count | performed at [facility];[address] | | LAB | | | Plasma | [address];[place] | | | | | | [address] | | | | + + + + + + | MPV | 7.9Comment: Testing | fl | EXTERNAL | | | | performed at [facility];[address] | | LAB | | | | [address];[place] | | | | | | [address] | | | | + + + + + + | Differentia | AUTOMATEDComment: | | EXTERNAL | | | l Type | Testing performed at | | LAB | | | | [facility];[address];[place] [address] | | | | + + + + + + | % Segmented | 72.96Comment: Testing | % | EXTERNAL | | | | performed at [facility];[address] | | LAB | | | Neutrophils | [address];[place] | | | | | | [address] | | | | + + + + + + | % | 19.69Comment: Testing | % | EXTERNAL | | | Lymphocytes | performed at [facility];[address] | | LAB | | | | [address];[place] | | | | | | [address] | | | | + + + + + + | % Monocytes | 6.53Comment: Testing | % | EXTERNAL | | | | performed at [facility];[address] | | LAB | | | | [address];[place] | | | | | | [address] | | | | + + + + + + | % | 0.04Comment: Testing | % | EXTERNAL | | | Eosinophils | performed at [facility];[address] | | LAB | | | | [address];[place] | | | | | | [address] | | | | + + + + + + | % Basophils | 0.78Comment: Testing | % | EXTERNAL | | | | performed at [facility];[address] | | LAB | | | | [address];[place] | | | | | | [address] | | | | + + + + + + | Absolute | 9.79 (H)Comment: Testing | 1.90 - 7.40 | EXTERNAL | | | Segmented | performed at [facility];[address] | K/uL | LAB | | | Neutrophils | [address];[place] | | | | | | [address] | | | | + + + + + + | Absolute | 2.64Comment: Testing | 1.00 - 3.90 | EXTERNAL | | | Lymphocytes | performed at [facility];[address] | K/uL | LAB | | | | [address];[place] | | | | | | [address] | | | | + + + + + + | Absolute | 0.88 (H)Comment: Testing | 0.00 - 0.80 | EXTERNAL | | | Monocytes | performed at [facility];[address] | K/uL | LAB | | | | [address];[place] | | | | | | [address] | | | | + + + + + + | Absolute | 0.01Comment: Testing | 0.00 - 0.50 | EXTERNAL | | | Eosinophils | performed at [facility];[address] | K/uL | LAB | | | | [address];[place] | | | | | | [address] | | | | + + + + + + | Absolute | 0.11 (H)Comment: Testing | 0.00 - 0.10 | EXTERNAL | | | Basophils | performed at [facility];[address] | K/uL | LAB | | | | [address];[place] | | | | | | [address] | | | | + + + [...] | | | | performed at [facility];[address] | | LAB | | | | [address];[place], [place] | | | | | | [address] | | | | + + + [...] | | | | performed at [facility];[address] | | LAB | | | | [address];[place], [place] | | | | | | [address] | | | | + + + [...] | | | | performed at [facility];888 | mmol/L | LAB | | | | [address];[place] | | | | | | [address] | | | | + + + + + + | K | 4.0Comment: Testing | 3.5 - 4.9 | EXTERNAL | | | | performed at [facility];888 | mmol/L | LAB | | | | [address];[place] | | | | | | [address] | | | | + + + + + + | Cl | 110 (H)Comment: Testing | 99 - 109 mmol/L | EXTERNAL | | | | performed at [facility];[address] | | LAB | | | | [address];[place] | | | | | | [address] | | | | + + + + + + | CO2 | 23Comment: Testing | 23 - 32 mmol/L | EXTERNAL | | | | performed at [facility];[address] | | LAB | | | | [address];[place] | | | | | | [address] | | | | + + + + + + | Anion Gap | 12Comment: Testing | 5 - 20 mmol/L | EXTERNAL | | | | performed at [facility];[address] | | LAB | | | | [address];[place] | | | | | | [address] | | | | + + + + + + | Glucose, | 97Comment: Testing | 65 - 99 mg/dL | EXTERNAL | | | Fasting | performed at [facility];[address] | | LAB | | | | [address];[place] | | | | | | [address] | | | | + + + + + + | BUN | 19Comment: Testing | 8 - 25 mg/dL | EXTERNAL | | | | performed at [facility];[address] | | LAB | | | | [address];[place] | | | | | | [address] | | | | + + + + + + | Creatinine | 0.84Comment: Testing | 0.50 - 1.00 | EXTERNAL | | | | performed at [facility];888 | mg/dL | LAB | | | | [address];[place] | | | | | | [address] | | | | + + + + + + | BUN/Creatin | 23Comment: Testing | | EXTERNAL | | | ine Ratio | performed at [facility];[address] | | LAB | | | | [address];[place] | | | | | | [address] | | | | + + + + + + | Calcium | 8.1 (L)Comment: Testing | 8.5 - 10.5 | EXTERNAL | | | | performed at [facility];888 | mg/dL | LAB | | | | [address];[place] | | | | | | [address] | | | | + + + + + + | Protein, | 6.5Comment: Testing | 6.3 - 8.2 g/dL | EXTERNAL | | | Total | performed at [facility];[address] | | LAB | | | | [address];[place] | | | | | | [address] | | | | + + + + + + | Albumin | 2.4 (L)Comment: Testing | 3.6 - 5.0 g/dL | EXTERNAL | | | | performed at [facility];[address] | | LAB | | | | [address];[place] | | | | | | [address] | | | | + + + + + + | Globulin | 4.1Comment: Testing | 1.3 - 4.9 g/dL | EXTERNAL | | | | performed at [facility];[address] | | LAB | | | | [address];[place] | | | | | | [address] | | | | + + + + + + | A/G Ratio | 0.6 (L)Comment: Testing | 1.0 - 2.4 | EXTERNAL | | | | performed at [facility];[address] | | LAB | | | | [address];[place] | | | | | | [address] | | | | + + + + + + | Bilirubin | 0.5Comment: Testing | 0.1 - 1.5 mg/dL | EXTERNAL | | | Total | performed at [facility];[address] | | LAB | | | | [address];[place] | | | | | | [address] | | | | + + + + + + | ALP, | 164 (H)Comment: Testing | 35 - 115 U/L | EXTERNAL | | | External | performed at [facility];[address] | | LAB | | | | [address];[place] | | | | | | [address] | | | | + + + + + + | AST | 18Comment: Testing | 10 - 45 U/L | EXTERNAL | | | | performed at [facility];[address] | | LAB | | | | [address];[place] | | | | | | [address] | | | | + + + + + + | ALT | 19Comment: Testing | 10 - 65 U/L | EXTERNAL | | | | performed at [facility];[address] | | LAB | | | | [address];[place] | | | | | | [address] | | | | + + + [...] | | | | | at [facility];[address] [facility] | | | | | | [address];[place] [address] | | | | + + + [...] | | | | performed at [facility];8 | | | | | | [facility];[place], [place] | | | | | | [address] | | | | + + + [...] | | | | performed at [facility] | | LAB | | | | [facility];[place], [place] | | | | | | [address] | | | | + + + [...] | | | | | at [facility];[address] [place] [address] | | | | | | [facility];[place] [address] | | | | + + [...] | | | | performed at [facility] | | | | | | [address];[place], [place] | | | | | | [address] | | | | + + + [...] [place] | | | | | | [address] | | | | + + + + + + | RED CELL | 4.76Comment: Testing | 3.70 - 5.10 | EXTERNAL | | | COUNT | performed at [facility], [address] | M/uL | LAB | | | | [address], | | | | | | [place] [address] | | | | + + + + + + | Hgb | 15.1Comment: Testing | 11.3 - 15.5 | EXTERNAL | | | | performed at [facility], [address] | g/dL | LAB | | | | [address], | | | | | | [place] [address] | | | | + + + + + + | Hematocrit, | 45.6Comment: Testing | 34.0 - 46.0 % | EXTERNAL | | | POC | performed at [facility], [address] | | LAB | | | | [address], | | | | | | [place] [address] | | | | + + + + + + | MCV | 95.9Comment: Testing | 80.0 - 100.0 fl | EXTERNAL | | | | performed at [facility], [address] | | LAB | | | | [address], | | | | | | [place] [address] | | | | + + + + + + | MCH | 31.7Comment: Testing | 27.0 - 34.0 pg | EXTERNAL | | | | performed at [facility], [address] | | LAB | | | | [address], | | | | | | [place] [address] | | | | + + + + + + | MCHC | 33.1Comment: Testing | 32.0 - 35.5 | EXTERNAL | | | | performed at [facility], [address] | g/dL | LAB | | | | [address], | | | | | | [place] [address] | | | | + + + + + + | RDW-CV | 53.8 (H)Comment: Testing | 37 - 53 fl | EXTERNAL | | | | performed at [facility], [address] | | LAB | | | | [address], | | | | | | [place] [address] | | | | + + + + + + | Platelet | 355Comment: Testing | 150 - 400 K/uL | EXTERNAL | | | Count | performed at [facility], [address] | | LAB | | | Plasma | [address], | | | | | | [place] [address] | | | | + + + + + + | MPV | 8.4Comment: Testing | fl | EXTERNAL | | | | performed at [facility], [address] | | LAB | | | | [address], | | | | | | [place], [place] [address] | | | | + + + + + + | Differentia | MANUALComment: Testing | | EXTERNAL | | | l Type | performed at [facility], [address] | | LAB | | | | [address], | | | | | | [place] [address] | | | | + + + + + + | Segmented | 87Comment: Testing | % | EXTERNAL | | | Neutrophils | performed at [facility], [address] | | LAB | | | Manual | [address], | | | | | | [place] [address] | | | | + + + + + + | % Bands | 6Comment: Testing | % | EXTERNAL | | | | performed at [facility], [address] | | LAB | | | | [address], | | | | | | [place] [address] | | | | + + + + + + | Lymphocytes | 7Comment: Testing | % | EXTERNAL | | | Manual | performed at [facility], [address] | | LAB | | | | [address], | | | | | | [place] [address] | | | | + + + + + + | Absolute | 12.66 (H)Comment: | 1.90 - 7.40 | EXTERNAL | | | Neutrophils | Testing performed at | K/uL | LAB | | | | [facility], [address] | | | | | | [place] | | | | | | [address] | | | | + + + + + + | Bands | 0.87 (H)Comment: Testing | 0.00 - 0.20 | EXTERNAL | | | Manual | performed at [facility], [address] | K/uL | LAB | | | | [address], | | | | | | [place] [address] | | | | + + + + + + | Absolute | 1.02Comment: Testing | 1.00 - 3.90 | EXTERNAL | | | Lymphocytes | performed at [facility], [address] | K/uL | LAB | | | | [address], | | | | | | [place] [address] | | | | + + + + + + | RBC | NORMAL PLT MORPHComment: | | EXTERNAL | | | Morphology | NORMAL RBC MORPHTesting | | LAB | | | | performed at [facility], [address] | | | | | [address], | | | | | | [place] [address] | | | | + + + [...] | | | | performed at [facility];[address] | | LAB | | | | [address];[place] | | | | | | [address] | | | | + + + [...] | | | | performed at [facility];[address] | | LAB | | | | [address];[place], [place] | | | | | | [address] | | | | + + + [...] | | | | performed at [facility] | | LAB | | | | [address];[place], [place] | | | | | | [address] | | | | + + + [...] | | | | performed at [facility];[address] | mmol/L | LAB | | | | [address];[place] | | | | | | [address] | | | | + + + + + + | K | 3.7Comment: Testing | 3.5 - 4.9 | EXTERNAL | | | | performed at [facility];[address] | mmol/L | LAB | | | | [address];[place] | | | | | | [address] | | | | + + + + + + | Cl | 103Comment: Testing | 99 - 109 mmol/L | EXTERNAL | | | | performed at [facility];[address] | | LAB | | | | [address];[place] | | | | | | [address] | | | | + + + + + + | CO2 | 23Comment: Testing | 23 - 32 mmol/L | EXTERNAL | | | | performed at [facility];[address] | | LAB | | | | [address];[place] | | | | | | [address] | | | | + + + + + + | Anion Gap | 15Comment: Testing | 5 - 20 mmol/L | EXTERNAL | | | | performed at [facility];[address] | | LAB | | | | [address];[place] | | | | | | [address] | | | | + + + + + + | Glucose, | 150 (H)Comment: Testing | 65 - 99 mg/dL | EXTERNAL | | | Fasting | performed at [facility];[address] | | LAB | | | | [address];[place] | | | | | | [address] | | | | + + + + + + | BUN | 9Comment: Testing | 8 - 25 mg/dL | EXTERNAL | | | | performed at [facility];[address] | | LAB | | | | [address];[place] | | | | | | [address] | | | | + + + + + + | Creatinine | 0.76Comment: Testing | 0.50 - 1.00 | EXTERNAL | | | | performed at [facility];[address] | mg/dL | LAB | | | | [address];[place] | | | | | | [address] | | | | + + + + + + | BUN/Creatin | 12Comment: Testing | | EXTERNAL | | | ine Ratio | performed at [facility];[address] | | LAB | | | | [address];[place] | | | | | | [address] | | | | + + + + + + | Calcium | 8.6Comment: Testing | 8.5 - 10.5 | EXTERNAL | | | | performed at [facility];[address] | mg/dL | LAB | | | | [address];[place] | | | | | | [address] | | | | + + + + + + | Protein, | 7.3Comment: Testing | 6.3 - 8.2 g/dL | EXTERNAL | | | Total | performed at [facility];[address] | | LAB | | | | [address];[place] | | | | | | [address] | | | | + + + + + + | Albumin | 2.6 (L)Comment: Testing | 3.6 - 5.0 g/dL | EXTERNAL | | | | performed at [facility];[address] | | LAB | | | | [address];[place] | | | | | | [address] | | | | + + + + + + | Globulin | 4.7Comment: Testing | 1.3 - 4.9 g/dL | EXTERNAL | | | | performed at [facility];[address] | | LAB | | | | [address];[place] | | | | | | [address] | | | | + + + + + + | A/G Ratio | 0.6 (L)Comment: Testing | 1.0 - 2.4 | EXTERNAL | | | | performed at [facility];[address] | | LAB | | | | [address];[place] | | | | | | [address] | | | | + + + + + + | Bilirubin | 0.9Comment: Testing | 0.1 - 1.5 mg/dL | EXTERNAL | | | Total | performed at [facility];[address] | | LAB | | | | [address];[place] | | | | | | [address] | | | | + + + + + + | ALP, | 246 (H)Comment: Testing | 35 - 115 U/L | EXTERNAL | | | External | performed at [facility];[address] | | LAB | | | | [address];[place] | | | | | | [address] | | | | + + + + + + | AST | 26Comment: Testing | 10 - 45 U/L | EXTERNAL | | | | performed at [facility];[address] | | LAB | | | | [address];[place] | | | | | | [address] | | | | + + + + + + | ALT | 23Comment: Testing | 10 - 65 U/L | EXTERNAL | | | | performed at [facility];[address] | | LAB | | | | [address];[place] | | | | | | [address] | | | | + + + [...] | | | | | at [facility];[address];[place] [address] | | | | + + + [...] | Testing performed | | | at [facility], [address] [place] [address] | | + + + + +---------+ [...] | LAB | | | | [facility] [address], | | | | | | [place] [address] | | | | + + + + + + | Clarity | CLEARComment: Testing | | EXTERNAL | | | | performed at [facility], [address] | | LAB | | | | [address] [place], | | | | | | [place] [address] | | | | + + + + + + | Specific | 1.007Comment: Testing | 1.002 - 1.030 | EXTERNAL | | | [place] | performed at [facility], [address] | | LAB | | | | [address] [place], | | | | | | [place] [address] | | | | + + + + + + | Leukocyte | SMALL (A)Comment: | | EXTERNAL | | | Esterase, | Testing performed at | | LAB | | | Urine | [facility], [address] | | | | | | [place] | | | | | | [address] | | | | + + + + + + | Nitrite, | NEGATIVEComment: Testing | | EXTERNAL | | | Urine | performed at [facility], [address] | | LAB | | | | [address], | | | | | | [place] [address] | | | | + + + + + + | Urobilinoge | 0.2Comment: Testing | mg/dL | EXTERNAL | | | n, Urine | performed at [facility], [address] | | LAB | | | | [address] [place], | | | | | | [place] [address] | | | | + + + + + + | Protein, | NEGATIVEComment: Testing | mg/dL | EXTERNAL | | | Urine | performed at [facility], [address] | | LAB | | | | [address] [place], | | | | | | [place] [address] | | | | + + + + + + | pH, Urine | 6.5Comment: Testing | 5.0 - 8.0 | EXTERNAL | | | | performed at [facility], [address] | | LAB | | | | [address] [place], | | | | | | [place] [address] | | | | + + + + + + | Blood, | SMALL (A)Comment: | | EXTERNAL | | | Urine | Testing performed at | | LAB | | | | [facility], [address] | | | | | | [place] | | | | | | [address] | | | | + + + + + + | Ketones | TRACE (A)Comment: | mg/dL | EXTERNAL | | | | Testing performed at | | LAB | | | | [facility], [address] | | | | | | [place] | | | | | | [address] | | | | + + + + + + | Bilirubin, | NEGATIVEComment: Testing | | EXTERNAL | | | Urine | performed at [facility], [address] | | LAB | | | | [address] [place], | | | | | | [place] [address] | | | | + + + + + + | Glucose, | NEGATIVEComment: Testing | mg/dL | EXTERNAL | | | Urine | performed at [facility], [address] | | LAB | | | | [address] [place], | | | | | | [place] [address] | | | | + + + [...] | | | | | [place] [address] | | | | + + + + + + | RBC, UA | 1-5Comment: Testing | 0 - 5 /hpf | EXTERNAL | | | | performed at [facility], [address] | | LAB | | | | [address], | | | | | | [place] [address] | | | | + + + + + + | Epithelial | 16-25Comment: Testing | /lpf | EXTERNAL | | | Cells | performed at [facility], [address] | | LAB | | | | [address], | | | | | | [place] [address] | | | | + + + + + + | Bacteria, | NONE SEENComment: | | EXTERNAL | | | UA | CULTURE TO FOLLOWTesting | | LAB | | | | performed at [facility], [address] | | | | | | [address] [place], | | | | | | [place] [address] | | | | + + + + + + | HYALINE | NONE SEENComment: | | EXTERNAL | | | CASTS UA | Testing performed at | | LAB | | | | [facility], [address] | | | | | | [place] | | | | | | [address] | | | | + + + [...] | | | | performed at [facility] | | | | | | [facility];[place], [place] | | | | | | [address] | | | | + + + [...] EXTERNAL LAB | | Testing performed at [facility];[address] [place] [address];[place] [address] MRSA PCR | | | NEGATIVE Testing performed at | | | [address];[place] [address] | | + + + + +---------+ [...] | | | | performed at [facility] | | | | | | [address];[place] | | | | | | [address] | | | | + + + [...] K/uL | LAB | | | | [facility];[address];[place] [address] | | | | + + + + + + | RED CELL | 4.56Comment: Testing | 3.70 - 5.10 | EXTERNAL | | | COUNT | performed at [facility];[address] | M/uL | LAB | | | | [address];[place] | | | | | | [address] | | | | + + + + + + | Hgb | 14.5Comment: Testing | 11.3 - 15.5 | EXTERNAL | | | | performed at [facility];[address] | g/dL | LAB | | | | [address];[place] | | | | | | [address] | | | | + + + + + + | Hematocrit, | 43.4Comment: Testing | 34.0 - 46.0 % | EXTERNAL | | | POC | performed at [facility];[address] | | LAB | | | | [address];[place] | | | | | | [address] | | | | + + + + + + | MCV | 95.2Comment: Testing | 80.0 - 100.0 fl | EXTERNAL | | | | performed at [facility];[address] | | LAB | | | | [address];[place] | | | | | | [address] | | | | + + + + + + | MCH | 31.8Comment: Testing | 27.0 - 34.0 pg | EXTERNAL | | | | performed at [facility];[address] | | LAB | | | | [address];[place] | | | | | | [address] | | | | + + + + + + | MCHC | 33.4Comment: Testing | 32.0 - 35.5 | EXTERNAL | | | | performed at [facility];[address] | g/dL | LAB | | | | [address];[place] | | | | | | [address] | | | | + + + + + + | RDW-CV | 53.4 (H)Comment: Testing | 37 - 53 fl | EXTERNAL | | | | performed at [facility];[address] | | LAB | | | | [address];[place] | | | | | | [address] | | | | + + + + + + | Platelet | 335Comment: Testing | 150 - 400 K/uL | EXTERNAL | | | Count | performed at [facility];[address] | | LAB | | | Plasma | [address];[place] | | | | | | [address] | | | | + + + + + + | MPV | 7.8Comment: Testing | fl | EXTERNAL | | | | performed at [facility];[address] | | LAB | | | | [address];[place] | | | | | | [address] | | | | + + + + + + | Differentia | AUTOMATEDComment: | | EXTERNAL | | | l Type | Testing performed at | | LAB | | | | [facility];[address];[place] [address] | | | | + + + + + + | % Segmented | 68.15Comment: Testing | % | EXTERNAL | | | | performed at [facility];[address] | | LAB | | | Neutrophils | [address];[place] | | | | | | [address] | | | | + + + + + + | % | 21.73Comment: Testing | % | EXTERNAL | | | Lymphocytes | performed at [facility];[address] | | LAB | | | | [address];[place] | | | | | | [address] | | | | + + + + + + | % Monocytes | 9.37Comment: Testing | % | EXTERNAL | | | | performed at [facility];[address] | | LAB | | | | [address];[place] | | | | | | [address] | | | | + + + + + + | % | 0.18Comment: Testing | % | EXTERNAL | | | Eosinophils | performed at [facility];[address] | | LAB | | | | [address];[place] | | | | | | [address] | | | | + + + + + + | % Basophils | 0.57Comment: Testing | % | EXTERNAL | | | | performed at [facility];[address] | | LAB | | | | [address];[place] | | | | | | [address] | | | | + + + + + + | Absolute | 13.33 (H)Comment: | 1.90 - 7.40 | EXTERNAL | | | Segmented | Testing performed at | K/uL | LAB | | | Neutrophils | [facility];[address];[place] [address] | | | | + + + + + + | Absolute | 4.25 (H)Comment: Testing | 1.00 - 3.90 | EXTERNAL | | | Lymphocytes | performed at [facility];[address] | K/uL | LAB | | | | [address];[place] | | | | | | [address] | | | | + + + + + + | Absolute | 1.83 (H)Comment: Testing | 0.00 - 0.80 | EXTERNAL | | | Monocytes | performed at [facility];[address] | K/uL | LAB | | | | [address];[place] | | | | | | [address] | | | | + + + + + + | Absolute | 0.04Comment: Testing | 0.00 - 0.50 | EXTERNAL | | | Eosinophils | performed at [facility];[address] | K/uL | LAB | | | | [address];[place] | | | | | | [address] | | | | + + + + + + | Absolute | 0.11 (H)Comment: Testing | 0.00 - 0.10 | EXTERNAL | | | Basophils | performed at [facility];[address] | K/uL | LAB | | | | [address];[place], [place] | | | | | | [address] | | | | + + + [...] | | | | performed at [facility];[address] | | LAB | | | | [address];[place] | | | | | | [address] | | | | + + + [...] | | | | performed at [facility];[address] | | LAB | | | | [address];[place] | | | | | | [address] | | | | + + + [...] | | | | performed at [facility];[address] | mmol/L | LAB | | | | [address];[place], [place] | | | | | | [address] | | | | + + + + + + | K | 3.1 (L)Comment: Testing | 3.5 - 4.9 | EXTERNAL | | | | performed at [facility];[address] | mmol/L | LAB | | | | [address];[place] | | | | | | [address] | | | | + + + + + + | Cl | 101Comment: Testing | 99 - 109 mmol/L | EXTERNAL | | | | performed at [facility];[address] | | LAB | | | | [address];[place] | | | | | | [address] | | | | + + + + + + | CO2 | 26Comment: Testing | 23 - 32 mmol/L | EXTERNAL | | | | performed at [facility];[address] | | LAB | | | | [address];[place] | | | | | | [address] | | | | + + + + + + | Anion Gap | 12Comment: Testing | 5 - 20 mmol/L | EXTERNAL | | | | performed at [facility];[address] | | LAB | | | | [address];[place] | | | | | | [address] | | | | + + + + + + | Glucose, | 109 (H)Comment: Testing | 65 - 99 mg/dL | EXTERNAL | | | Fasting | performed at [facility];[address] | | LAB | | | | [address];[place] | | | | | | [address] | | | | + + + + + + | BUN | 9Comment: Testing | 8 - 25 mg/dL | EXTERNAL | | | | performed at [facility];[address] | | LAB | | | | [address];[place] | | | | | | [address] | | | | + + + + + + | Creatinine | 0.69Comment: Testing | 0.50 - 1.00 | EXTERNAL | | | | performed at [facility];[address] | mg/dL | LAB | | | | [address];[place] | | | | | | [address] | | | | + + + + + + | BUN/Creatin | 12Comment: Testing | | EXTERNAL | | | ine Ratio | performed at [facility];[address] | | LAB | | | | [address];[place] | | | | | | [address] | | | | + + + + + + | Calcium | 8.5Comment: Testing | 8.5 - 10.5 | EXTERNAL | | | | performed at [facility];888 | mg/dL | LAB | | | | [address];[place] | | | | | | [address] | | | | + + + [...] | | | | | at [facility];[address] | | | | | | [place] [address] | | | | + + + [...]
--- OUTSIDE RECORDS SUMMARY | ~2019-03-09 | XMS | Encounter Summary ---
Demographics + + + | Address | [address] | | | [place] [address] | + + + | Home Phone | | + + + | Preferred Language | Unknown | + + + | Marital Status | | + + + | Protestant Affiliation | Unknown | + + + [...] Team Providers + +------+ + | Care Field Marketing Lead Name | Role | Phone | [...] [address] | | | | | [place], [place] | [place] [address] | | | | | [address] | [phone] | | | | | [phone] | | | +--------+ + + + [...] | | 2019 | Visit | | J[facility] [employer] | | | | | | [facility] [address] | | | | | | [place] [address] | | | | | | [phone] | | | | | | | [...]
--- OUTSIDE RECORDS SUMMARY | ~2019-03-09 | XMS | Encounter Summary ---
Demographics + + + | Address | [address] | | | [place] [address] | + + + | Home Phone | | + + + | Preferred Language | Unknown | + + + | Marital Status | | + + + | Evangelical Affiliation | Unknown | + + + | Race | Unknown | + + + | Ethnic Group | Unknown | + + + Author + + + | Author | [facility] | | | and [place] | + + + | Organization | [facility] | | | [...] Team Providers + +------+ + | Care Fish Receiver Name | Role | Phone | + +------+ + | No, Physician | PCP | Unavailable | + +------+ + Reason for Visit + + + | Reason | Comments | + + + | Appointment | | + + + Encounter Details +--------+ + + + + | Date | Type | Department | Care Team | Description | +--------+ + + + + | 03/15/ | Telephone | [facility] | Severo, | Appointment | | 2019 | | GENERAL SURGERY [address] | [address] | | | | | [address] | [address] | | | | | [place], [place] | [place] [address] | | | | | [address] | [phone] | | | | | [phone] | | | +--------+ + + + [...] [address] | | | | | | [place] [address] | | | | | | [phone] | | | | | | | [...]
--- OUTSIDE RECORDS SUMMARY | ~2019-03-09 | XMS | Encounter Summary ---
Demographics + + + | Address | [address] | | | [place] [address] | + + + | Home Phone | | + + + | Preferred Language | Unknown | + + + | Marital Status | | + + + | Synagogue Affiliation | Unknown | + + + | Race | Unknown | + + + | Ethnic Group | Unknown | + + + Author + + + | Author | [facility] | | | and [place] | + + + | Organization | [facility] | | | and [...] Team Providers + +------+ + | Care Livestock Exhibitor Name | Role | Phone | + +------+ + PCP | Unavailable | + +------+ + Encounter Details +--------+ + + + + | Date | Type | Department | Care Team | Description | +--------+ + + + + | 10/09/ | Hospital | [facility] | Conversion | | | 2016 | Encounter | [facility] | Transaction, | | | | | [address] | Provider Unknown | | | | | [place], [place] | | | | | | [address] | (Fax) | | | | | [phone] | | | +--------+ + + + [...] | | | | | [facility] [address] | | | | | | [place] [address] | | | | | | [phone] | | | | | | | | +--------+---------+ + + + documented as of this encounter Visit Diagnoses Not on filedocumented in this encounter"
--- OUTSIDE RECORDS SUMMARY | ~2019-03-09 | XMS | Encounter Summary ---
Demographics + + + | Address | [address] | | | [place] [address] | + + + | Home Phone | | + + + | Preferred Language | Unknown | + + + | Marital Status | | + + + | Hindu Affiliation | Unknown | + + + [...] Team Providers + +------+ + | Care Shop Repairer Name | Role | Phone | + [...] [address] | | | | | [place], [place] | [place] [address] | | | | | [address] | [phone] | | | | | [phone] | | | +--------+ + + + [...]
--- OUTSIDE RECORDS SUMMARY | ~2019-03-09 | XMS | Encounter Summary ---
Demographics + + + | Address | [address] | | | [place] [address] | + + + | Home Phone [...] [place], [place] | | | | | [address] | | + + + + + | Cami Sawyer | ECON | Unknown | | + + + + + Care Team Providers + +------+ + | Care Topper Packer Name | Role | Phone | + +------+ + | Aren Rose DO | PCP | | + +------+ + Encounter Details +--------+ + + + + | Date | Type | Department | Care Team | Description | +--------+ + + + + | 03/15/ | Results | LAB REFERRED TESTS | Other, Faculty | | | 2011 | Only | [address] | [phone] | | | | | [place] | | | | | | [place], [place] | | | | | | [address] | | | +--------+ + + + [...] DEPT OF | [address] | [place], [place] | | | CARDIOLOGY | [address] | [address] | | + + + + + documented in this encounter Visit Diagnoses Not on filedocumented in this encounter"
--- OUTSIDE RECORDS SUMMARY | ~2019-03-09 | XMS | Encounter Summary ---
Demographics + + + | Address | [address] | | | [place] [address] | + + + | Home Phone | | + + + | Preferred Language | Unknown | + + + | Marital Status | | + + + | Mosque Affiliation | Unknown | + + + | Race | Unknown | + + + | Ethnic Group | Unknown | + + + Author + + + | Author | [facility] | | | and [place] | + + + | Organization | [facility] | | | [...] Team Providers + +------+ + | Care Cant Gang Sawyer Name | Role | Phone | [...] Unknown | | | | | [place], [place] | [phone] | | | | | [address] | | | | | | [phone] | | | +--------+ + + + [...]
--- OUTSIDE RECORDS SUMMARY | ~2019-03-09 | XMS | Encounter Summary ---
Demographics + + + | Address | [address] | | | [place] [address] | + + + | Home Phone [...] [place], [place] | | | | | [address] | | + + + + + | Cami Sawyer | ECON | Unknown | | + + + + + Care Team Providers + +------+ + | Care Acute Care Assistant Name | Role | Phone | [...] RIGHT POPLITEAL | | 2011 | | [facility] | MD [address] | ANTEROTIBIAL | | | | Admitting Desk | [address] | EMBOLECTOMY | | | | Located on the | [place], [place] | | | | | floor [address] | [address] | | | | | [address] | [phone] | | | | | [place], [place] | | | | | | [address] | | | +--------+---------+ + + + [...] [facility]. 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 At arrival to [facility] it was learned that she did NOT indeed have ischemic colitis. 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 She underwent embolectomy on 03/17, which resulted in shinto of flow and no loss of tissue [...] was agreed that the patient needed a roasterman treatment and we settled o n remicade. [...] flagyl - which was continued throughout the [facility]. However, vanc/cefepime/flagyl was used instead for a [...] Destination: Home Other Discharge Orders and Instructions network support administrator your lovenox syringes at the [facility]. Go to the hospital on Tuesday [...] forming. Please call your GI doctor in [facility] to arrange for your [...] whether or not the INR is truly compliance representative of anticoagulation. In patients with APLA [...] I NR on Tuesday. KIRIT RUST MD [facility] DEPARTMENT: [id number]- [facility] Faculty PPV Place of Service:- Inpatient Date of Service: 04/01/2012 CSN: [id number] Suggested Modifier: GC Resident Involved: Yes Suggested CPT: 41874- Dishcarge < 30 min Electronically signed by [...] questions. Debi Oconnor MD GI/Hepatology Fellow Pager: [phone] INTERVAL HISTORY: MRI abdomen shows no abscess; [...] risk of emboli, I called Dr. Rodriges (conference manager for her PCP) to coordinate f/u [...] noted any additions above. KIRIT RUST MD [facility] DEPARTMENT: [id number]- [facility] Faculty PPV Place of Service:- Inpatient Date of Service: 03/31/2012 CSN: [id number] Suggested Modifier: GC Resident Involved: Yes Suggested CPT: 51946- Subsequent, Detailed/high complex, 35 min Davonte De [...] state: J Gastroenterol. 2004 Oct;39(10):948-54. PubMed PMID: [id number]. Consulted Heme for further studies on platelet [...] no insurance. Wanting to go home for [place]. Nurse repor ts that she has admitted [...] notes for assessment and pl an. Nuñez [place], Sub-Industrial Twisting Machine Operator Pgr: [phone] Ajay De La Rosa MD - 03/30/2012 11:39 PM [facility] Internal Medicine Attending Interval note - [...] bridge after d/c until coumading therapeutic with behavioral health care coordinator through medication assistance program Hypoalbuminemia (03/14/2012) [...] noted any additions above. KIRIT MD YOCASTA [facility] DEPARTMENT: [id number]- [facility] Faculty PPV Place of Service:- Inpatient Date of Service: 03/30/2012 CSN: [id number] Suggested Modifier: GC Resident Involved: Yes Suggested CPT: 58915- Subsequent, Detailed/high complex, 35 min Debi Yepez [...] follow closely Shaun SAEED GI Fellow Pg [phone] signed by Debi Oconnor MD at 03/30/2012 5:32 PM Jacoby Ko MD - 03/30/2012 10:25 AM PSTFormatting of this note might be different from the origi nal. [facility] DEPARTMENT OF SURGERY Daily Progress Note PROGRESS NOTE: Attending Physician: Xin Rust MD 03/31/2012 Subjective/Overnight Events: - latest CT shows resolution of abscess - no GI bleeding - no rectal/anal pain - tolerating reg diet MEDICATIONS: Reviewed in [facility] VITAL SIGNS: Refer to [facility] Intake/Output Summary (Last 24 hours) at [...] concerns. Jacoby Tovar MD Surgery, R2 Diagnoses: [id number] Crohn disease This assessment and plan was [...] state: J Gastroenterol. 2004 Jan;39(10):948-54. PubMed PMID: [id number]. Consulted Heme for further studies on platelet [...] this note might be different from the [facility]. Transfer Accept Note Patient: Mackenzie Hartley [...] Nathan Weeks MD Internal Medicine PGY1 Pager [phone] Cecilia Baker MD - 03/29/2012 6:37 PM [...] team. Debi Oconnor MD GI Fellow Pager [phone] signed by Debi Oconnor MD at 03/29/2012 [...] planning) Debi Oconnor MD Fellow, Gastroenterology pager: [phone] signed by Debi Oconnor MD at 03/29/2012 3:25 PM Shivain Herrera MD - 03/29/2012 12:52 PM PSTProcedural [...] this encounter. OSBALDO GARCIA MD [facility] [address] [place] [address] Andrew Shah MD - 10:41 AM PST [facility] DEPARTMENT OF SURGERY Daily Progress Note PROGRESS NOTE: Attending Physician: Osbaldo Garcia MD 03/29/2012 Subjective/Overnight Events: - bowel prep initiated - Hct stable - no hematochezia or hemetemesis - MEDICATIONS: Reviewed in [facility] VITAL SIGNS: Refer to [facility] Intake/Output Summary (Last 24 hours) at [...] GI Jacoby Tovar MD Surgery, R2 Diagnoses: [id number] Crohn disease This assessment and plan was [...] conscious sedation. OSBALDO GARCIA MD [facility] [address] [place] [address] I spent 35 min in critical care (not including procedures) [facility] DEPARTMENT: MICU, [facility]- [id number] Place of Service: - Date of Service: 03/29/2012 CSN: [id number] Modifiers:GC Resident Involved: yes Suggested CPT: 29863 Critical Care, Initial 30-74 minutes Carlton Godwin [...] day [facility] transfer to MICU [facility]1 [facility]11[facility] [...] 0659 03/29/12 07 - 03/30/12 0659 Shift 9663-6423 3332-2783 6393-7855 Daily Total 2690-8983 4775-2497 9264-5238 Daily Total I N T A K E P.O. 1750 2525 4275 I.V. 934 0343 407 7079 Shift Total 934 3740 3450 8124 O U T P U T Urine 1075 2950 1875 5900 Urine 1075 2950 1875 5900 Other 575 532 247 4844 Measured Stool Output 350 425 775 Stool/Urine Mix 575 575 Shift Total 1650 3300 2300 7250 NET -664 716 5039 874 Intake/Output Summary (since admission) at 03/12/12 1910 Last data filed at 03/29/12 0547 Gross for the last 17 days Intake 15450 ml Output 74863 ml Net since Admission -08170 ml Physical Exam: General Appearance: middle aged [...] Carlton Betancourt DO PGY-1 Internal Medicine Pager [phone] Debi Yepez MD - 03/11 4:31 PM [...] questions. Debi Oconnor MD GI/Hepatology Fellow Pager: [phone] INTERVAL HISTORY: Episode of melena last night then bright red blood per rectum this morning Hemodynamically stable but decrease in hct from 30 to 24 Transferred to [facility] INPATIENT MEDICATIONS acetaminophen (aka TYLENOL) tablet 650 [...] the past. OSBALDO GARCIA MD [facility] [address] [address] I spent 35 min in critical care (not including procedures) EPIC DEPARTMENT: [facility], [facility]- [id number] Place of Service: Date of Service: 03/28/2012 CSN: [id number] Modifiers:GC Resident Involved: yes Suggested CPT: 20503 Critical Care, Initial 30-74 minutes Carlton Godwin [...] 0659 03/28/12 07 - 03/29/12 0659 Shift 7350-1716 1791-9759 1970-6622 Daily Total 1837-0039 7767-8722 5934-0699 Daily Total I N T A K E P.O. 240 300 540 I.V. 404 404 934 934 Blood 1300 1300 Shift Total 603 834 1411 2244 934 934 O U T P [...] Gross for the last 16 days Intake 34420 ml Output 72828 ml Net since Admission -87201 ml Physical Exam: General Appearance: tearful middle [...] and narcotics which may mask her symptoms. Gievns ve asked vascular surgery to weigh in [...] Carlton Betancourt DO PGY-1 Internal Medicine Pager [phone] Andrew Shah MD - 6:52 AM PST [...] Sukumar Zuniga DO Internal Medicine PGY-2 Pg [phone] Davonte De La Rosa MD - 03/27/2012 [...] noted any additions above. KIRITYann RUST MD [facility] DEPARTMENT: [id number]- [facility] Faculty PPV Place of Service:- Inpatient Date of Service: 03/27/2012 CSN: [id number] Suggested Modifier: Resident Involved: Yes Suggested CPT: 43741- Subsequent, Detailed/high complex, 35 min Marely Mccann [...] was discussed and formulated with gastroenterology at [facility], Dr. Hennessy. Please call with any questions. Debi Oconnor MD GI/Hepatology Fellow Pager: [phone] INTERVAL HISTORY: Imaging reviewed with radiology; too [...] Dung Victor - 2 11:30 AM PST LAB ASSISTANT NOTE: Visited with Patient. 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 Client Experience Administrator team will follow as needed. Chaplain Dung Riley M.Div., [facility] [phone] Pager #[phone]; #[phone] Xin De La Rosa MD - 7:31 [...] J Gastroenterol. 2004 Jan;39(10):948-54. PubMed PMID: [id number]. Consulted Heme for further studies on platelet [...] an. ---- Joaquin Rivera, MS4 Pager # [phone] signed by Xin Rust MD at 03/27/2012 [...] noted any additions above. KIRIT RUST MD [facility] DEPARTMENT: [id number]- [facility] Faculty PPV Place of Service:- Inpatient Date of Service: 03/26/2012 CSN: [id number] Suggested Modifier: GC Resident Involved: Yes Suggested CPT: 62009- Subsequent, Detailed/high complex, 35 min aphael Norman [...] kg/(m^2). Date 03/26/12699 - 03/27/12 0659 Shift 0739-0026 5402-7131 9757-7133 24 Hour Total I N T A [...] a hx of fistulizing (vaginal and enteral) Admissions Consultant hn's disease, admitted with widespread arterial emboli [...] physician. Raphael Norman MD Internal Medicine, PGY-2 56377 Xin De La Rosa MD - 03/25/2012 [...] - not larger Resident spoke with radiology services manager who spoke with staff - they did [...] taking more PO if still low ask engineering assistant to see Hypophosphatemia (03/14/2012) Assessment: rechecked and [...] noted any additions above. KIRIT MD YOCASTA [facility] DEPARTMENT: [id number]- [facility] Faculty PPV Place of Service:- Inpatient Date of Service: 03/25/2012 CSN: [id number] Suggested Modifier: Resident Involved: Yes Suggested CPT: 70859- Subsequent, Detailed/high complex, 35 min oaquin Rivera [...] J Gastroenterol. 2004 Jan;39(10):948- 54. PubMed PMID: [id number]. Consulted [facility] for further studies on platelet inhibitor [...] an. ---- Joaquin Rivera, MS4 Pager # [phone] Ajay De La Rosa MD - 03/24/2012 [...] drainage of abscess and coordination of care [facility] radiology reviewing perirectal abscess imaging, options for intervention and need for rep eat imagin, also with GI on plan. I personally interviewed the patient, performed the gunter elements of the physical examinatio n, and personally formulated the assessment and plan with the resident. I agree with the MS4 s documentation and have noted any additions above. KIRIT MD YOCASTA [facility] DEPARTMENT: [id number]- [facility] Faculty PPV Place of Service:- Inpatient Date of Service: 03/24/2012 CSN: [id number] Suggested Modifier: Resident Involved: Yes Suggested CPT: 15110- Subsequent, Detailed/high complex, 35 min Davonte De [...] J Gastroenterol. 2004 Jan;39(10):948- 54. PubMed PMID: [id number]. Consulted Heme for further studies on platelet [...] an. ---- Joaquin Nicole, MS4 Pager # [phone] Ajay De La Rosa MD - 03/23/2012 [...] noted any additions above. KIRIT MD YOCASTA [facility] DEPARTMENT: [id number]- [facility] Faculty PPV Place of Service:- Inpatient Date of Service: 03/23/2012 CSN: [id number] Suggested Modifier: GC Resident Involved: Yes Suggested CPT: 26958- Subsequent, Detailed/high complex, 35 min Davonte De [...] capsule 40 mg, 40 mg, Oral, BID, Darieal Santoyo MD, 40 mg at 03/22 oxyCODONE [...] done today JERI DIAZ MD [facility] [address] [place] [address] Xin De La Rosa MD - 03/23/2012 [...] state: J Gastroenterol. 2004 Jan;39(10):948-54. PubMed PMID: [id number]. Consulted Heme for further studies on platelet [...] an. ---- Joaquin Rivera, VIVIANA Pager # [phone] Ajay De La Rosa MD - 03/22/2012 [...] noted any additions above. KIRIT MD YOCASTA [facility] DEPARTMENT: [id number]- [facility] Faculty PPV Place of Service:- Inpatient Date of Service: 03/22/2012 CSN: [id number] Suggested Modifier: Resident Involved: Yes Suggested CPT: 44445- Subsequent, Detailed/high complex, 35 min ox, Jeri [...] ordered today JERI DIAZ MD [facility] [address] [place] [address] Xin De La Rosa MD - 03/22/2012 [...] PTT in mixing 1:1 Neg cardiolipin, neg rvbo-V-aqnjuojihbgf Legionella Agg Urine pending Cultures: BLOOD CULTURE [...] barber: J Gastroenterol. 2004 Jan;39(10):948-54. PubMed PMID: [id number]. - Consult Heme for further studies on [...] an. ---- Joaquin Rivera, MS4 Pager # [phone] Ajay De La Rosa MD - 03/21/2012 [...] BP 142/76 | Pulse 106[sinus tach per teleradiologist[ | Temp 37.7 C (99.9 F) | [...] -- also coordination of care with pharmD. [facility] DEPARTMENT: [id number]- [facility] Faculty PPV Place of Service:- Inpatient Date of Service: 03/21/2012 CSN: [id number] Suggested Modifier: AKHIL Resident Involved: Yes Suggested CPT: 25514- Subsequent, Detailed/high complex, 35 min Jennifer Tolentino [...] with multiple complex medical problems; [facility] Vascular Surge ry consulted due [...] baseline Ok to discharge per [facility] Vascular Surgeons once ambulating and medical issues are stable. Will continue to follow while in patient. [facility] Vascular Surgery Clinic, [address], phone number [phone] Please schedule followup appointment within 2-3 weeks of surgery for wound check. Dr. Sukumar Salgado, [facility] Vascular Surgery Attending. MERT OLIVA [facility] VASCULAR SURGERY [facility] [place] [address] hamMoses MD - 03/21/2012 6:55 AM PSTAgree [...] w ill need to establish care with electric operator so that further treatment options can [...] assessment and plan. Moses Anthony MD Neurology Industrial Twisting Machine Operator Pager [phone] oaquin Rivera - 02/2012 6:55 AM PST Medicine Progress Note Refer to Attending and Resident Notes for Assessment and Plan Hospital Day # 9 Patient:Mackenzie Hartley, Attending: Xin Rust MD Author:Joaquin Herron Rivera MS4 ID:Mackeznie Hartley is a 56 [...] an. ---- Joaquin Rivera, MS4 Pager # [phone] Xin De La Rosa M D - 03/20/2012 11:09 PM [facility]3 Internal Medicine Attending Interval note Hospital [...] noted any additions above. KIRIT MD YOCASTA [facility] DEPARTMENT: [id number]- [facility] Faculty PPV Place of Service:- Inpatient Date of Service: 03/20/2012 CSN: [id number] Suggested Modifier: Resident Involved: Yes Suggested CPT: 41555- Subsequent, Detailed/high complex, 35 min ennifer Staples, [facility] - 03/20/2012 3:36 PM PST . [...] with multiple complex medical problems; [facility] Vascular Surge ry consulted due [...] chair as tolerated, RLE WBAT -Please obtain [facility] Arterial duplex ultrasound/DELORIS of both legs prior to discharge as n ew baselineObtain ABIs with waveforms To establish new blood-flow baseline Ok to discharge per [facility] Vascular Surgeons once ambulating and medical issues are stable. Will continue to follow while in patient. [facility] Vascular Surgery Clinic, [address], phone number [phone] Please schedule followup appointment within 2-3 weeks of surgery for wound check. Dr. Sukumar Salgado, [facility] Vascular Surgery Attending. MERT OLIVA [facility] VASCULAR SURGERY [address] [place] [address] aphael Norman - 7:58 AM PSTI agree [...] plan. Raphael Norman MD Internal Medicine, PGY-2 [id number] rinJoaquin dowd - 2011 7:58 AM PST [...] an. ---- Joaquin Rivera, MS4 Pager # [phone] Juma Pimentel MD - 12/2011 3:35 PM [...] 16 g, 16 g, Oral, Q15MIN PRN, Bibaina Adams PA-C heparin 10 unit/mL IV flush [...] Dr. Salgado. JUMA CARRINGTON MD [facility] [address] [place] [address] Chary Moore M D - 03/19/2012 9:14 [...] note from 03/14 for details. Therefore the pgti-pouk-tryqk plan givens s been to allow her [...] bridge to be covered by [facility]. 9) Occlusive thrombus 10) Hypoalbuminemia 11) Hypophosphatemia 12) TIA (transient ischemic attack) - with PFO 13) PFO (patent foramen ovale) - plan is for lifelong coumadin. No additional benefit from device closure per CLOSURE I trial. Chary Doherty MD Chief Resident, Internal Medicine Pager: [phone] [facility] DEPARTMENT: Hosp- [phone] Place of Service: - Date of Service: 03/19/2012 CSN: [id number] Modifiers:GC Resident Involved: Yes Suggested CPT: 76157 Subsequent Visit Detailed/High complexity 35 min I [...] will need to establish c are with electric operator so that further treatment options can [...] assessment and plan. Moses Anthony MD Neurology Industrial Twisting Machine Operator Pager [phone] tJose Antonio prado MD - 03/18/2012 1:01 [...] outpt GI, plans to establish care in [place], perhaps Dr. Byrd. Transitioning to PO meds, [...] Doherty MD Chief Resident, Internal Medicine Pager: [phone] [facility] DEPARTMENT: Hosp- [phone] Place of Service: - Date of Service: 03/18/2012 CSN: [id number] Modifiers: Resident Involved: Yes Suggested CPT: 08307 Subsequent Visit Exp Prob Foc/Mod Complexity 25 [...] Date 03/18/12 0700 - 03/19/12 0659 Shift 6664-6649 0197-4217 4415-9735 24 Hour Total I N T A K E P.O. 620 620 I.V. 20 20 40 Shift Total 640 20 660 O U T P U T Urine 675 100 775 Other 400 400 Shift Total 167 747 7071 Weight (kg) 74.1 74.1 74.1 74.1 General: [...] refusing). Will need to establish care with electric operator so that further treatment options can [...] in MS4 note. Moses Anthony MD Neurology Industrial Twisting Machine Operator Pager [phone] signed by Moses Asher MD at 03/18/2012 [...] an. ---- Nuñez Nicole, MS4 Pager # [phone] Chary Moore MD - 03/17/2012 8:39 PM [...] refusing). Will need to establish care with electric operator so this can be discussed as [...] Doherty MD Chief Resident, Internal Medicine Pager: [phone] [facility] DEPARTMENT: Hosp- [id number] Place of Service: - Date of Service: 03/17/2012 CSN: [id number] Modifiers: Resident Involved: Yes Suggested CPT: 13648 Subsequent Visit Detailed/High complexity 35 min I [...] of case. MIRELA SALGADO MD [facility] [address] [address] [place] [address] ham, Gloria Lawson MD - [...] with her coumadin and [facility] has agreed to provide discounted INR [...] y Gloria Anthony MD Neurology PGY1 Pager: [phone] oaquin Rivera - 10/2011 7:19 AM PST [...] an. ---- Joaquin Rivera, MS4 Pager # [phone] Chary Moore MD - 03/16/2012 12:56 PM [...] Doherty MD Chief Resident, Internal Medicine Pager: [phone] [facility] DEPARTMENT: Hosp- [id number] Place of Service: - Date of Service: 03/16/2012 CSN: [id number] Modifiers: Resident Involved: Yes Suggested CPT: 69191 Subsequent Visit Exp Prob Foc/Mod Complexity 25 min and 45544 Subseque nt Visit Detailed/High complexity 35 min [...] Day:4 Author; GLORIA ANTHONY MD Attending Physician: Chayr Doherty MD Interval Hx: -Hematology signed off, [...] DNR/DNI Gloria Anthony MD Neurology PGY-1 Pager [phone] The patient was seen and discussed with [...] Doherty MD Chief Resident, Internal Medicine Pager: [phone] [facility] DEPARTMENT: Hosp- [phone] Place of Service: - Date of Service: 03/15/2012 CSN: [id number] Modifiers:GC Resident Involved: Yes Suggested CPT: 82985 Subsequent Visit Detailed/High complexity 35 min Dariela [...] plan. Dariela Santoyo MD Internal Medicine PGY-3 [phone] Daryl Singleton MD - 08/2011 7:18 PM PSTHematology Attending Consult Note: I saw and examined Ms. Hartley with the Hematology Fellow, Dr. Anthony Camejo and [facility] [place] the 5A Medicine unit. I participated in the gunter components of today's [facility] visit including review of the [...] re Daryl Arteaga MD, PhD Hematology Oncology [facility] DEPARTMENT: [id number]- HEM FACULTY [facility] Place of Service: - Inpatient Date of Service: 03/15/2012 Modifiers: GC - Resident Involved Suggested CPT: 55801 - Subsequent, Detailed/High complex 35 min Anthony [...] f/u closely; our clinic at [facility] cannot provide any suppli es [...] as above. MD Hematology/Oncology Fellow Pager # [phone] signed by Daryl Arteaga MD at 03/15/2012 [...] with any questions. Bigg Margaret, R1 Pager: [phone] INTERVAL HISTORY: - NAEO - VSS, AF [...] pro ceed. Mirela Samano M.D. [facility] Vascular Surgery [address] [facility], [address] [address] Email: [email or web address], Sandoval Barrett MD - [...] off to day. Jacoby Tovar MD Surgery [id number] signed by Sandoval Tovar MD at 03/15/2012 [...] monitor Gloria Anthony MD Neurology PGY1 Pager [phone] Daryl Singleton MD - 07/2011 4:57 PM PSTHematology Attending Consult Note: I saw and examined Ms. Hartley with the Hematology Fellow, Dr. Anthony Camejo in the [address] [place] [address] unit. I participated in the gunter components [...] re Daryl Arteaga MD, PhD Hematology Oncology [facility] DEPARTMENT: [id number]- HEM FACULTY [facility] Place of Service: - Inpatient Date of Service: 03/14/2012 Modifiers: GC - Resident Involved Suggested CPT: 51791 - Subsequent, Detailed/High complex 35 min Anthony [...] as above. MD Hematology/Oncology Fellow Pager # [phone] signed by Daryl Arteaga MD at 03/14/2012 [...] really for treatment Recommendations communicated with GM3 events intern. We will continue to follow. This plan was discussed and formulated with gastroenterology at [facility], Dr. Casiano. Please call with any questions. Bigg Robles, R1 Pager: [phone] Attending Attestation: I personally interviewed the patient, [...] She may follow-up wit h her local electric operator or may follow up with me at [facility] if she wishes to consider di fferent evaluation or treatment. Gopal Casiano MD Industry Analystsociology faculty member Department of Gastroenterology INTERVAL HISTORY: - NAEO [...] outside imaging with radiologist at [facility] and CT abd and pelvis [...] Becca Moncada MD General Surgery, R2 Pager: [phone] [facility] Staff I saw and evaluated [...] this point. Mirela Samano M.D. [facility] Vascular Surgery [address] [place] [address], [address] [address] Email: [email or web address], Irene Vega MD - [...] at OSH. 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 She also had leukocytosis to 45 with a left shift, anemia, and thrombocytosis (platelets to 759). Her abdominal exam was not acute and she remained hemodynamically stable. Transferre d to [facility] for possible thrombectomy, initiated heparin [...] were obscured by overlying bowel gas. The [id number]-[id number] left external iliac arteries appear patent with [...] transient arterial occlusion. Reported CT findings at [facility] are also concerning for diffuse intra-abdominal arterial [...] A SALCIDO MD R2, General Surgery [facility] 03/13/2012 1:20 PM Current Facility-Administered Medications [...] Recorded LastCBG Intervention: Notified (Comment);Medication given (03/12/12 5198) CBC with diff last 72 hours (or [...] Becca Moncada MD General Surgery, R2 Pager: [phone] Vascular Staff I saw and evaluated the [...] later time. Mirela Samano M.D. [facility] Vascular Surgery [address] [facility] [place] [address] Email: [email or web address] Richie Goodman MD - 06/2011 11:15 AM PSTI was present and rounded with the AGENCY TRAINER today. I interviewed and examined the patient. I reviewed the history, as documented today. I agree with the AGENCY TRAINER's assessmen t and plan. Pt is [...] visceral and aortic thrombus transfer red from [place] last night with concerns for ischemic bowel. [...] arteries who was transferred to [facility] for management o f vascular disease and possible bowel ischemia. No evidence of bowel ischemia, bowel thicken ing likely Crohn's flare. 1. Crohn's flare: GI consult. Consider transfer to medicine for crohn's management with [facility] following 2. Multivessel occlusions/thrombii: [...] Her abdominal exam does not reveal peritonitis. [facility] ular surgery recommended a heparin drip given her subtherapeutic INR. Hematology will be con sulted for her leukocytosis and declining platelet count in the setting of heparin therapy. Gastroenterology is making recommendations regarding acute management of her Crohn's disease . She will no longer require ICU care and she will transfer to the general medicine service. Jf Wiseman MD FACS webbing weaver Division of Trauma, Critical Care, and Acute Care Surgery [id number] documented in this e ncounter Plan of [...] [facility] | [address] | [place] [address] | | | JANELL SHARP | BERTRAM [...] [facility] | [address] | [place] [address] | | | SERVICES, CORE | BERTRAM [...] + + + + | [facility] | [address] | [place] [address] | | | JANELL SHARP | BERTRAM [...] LABORATORY | [address] | [place] [address] | | | SERVICES, CORE | PARK [...] | + + + + + | [facility] | [address] | [place] [address] | | | SERVICES, CORE | PARK [...] [facility] | [address] | [place] [address] | | | SERVICES, JANELL | BERTRAM [...] [facility] | [address] | [place] [address] | | | JANELL SHARP | [address] | | | + [...] [facility] | [address] | [place] [address] | | | SERVICES, JANELL | BERTRAM [...] [facility] | [address] | [place] [address] | | | SERVICES, CORE | PARK [...] [facility] | [address] | [place] [address] | | | SERVICES, CORE | BERTRAM [...] [facility] | [address] | [place] [address] | | | SERVICES, CORE | PARK [...] | + + + + + | [facility] | [address] | [place] [address] | | | SERVICES, CORE | BERTRAM [...] | + + + + + | [facility] | [address] | [place] [address] | | | SERVICES, CORE | PARK [...] + | [facility] | [address] | [place] [address] | | | [place] | | | [...] + | [facility] | [address] | [place] [address] | | | [place] | | | [...] + | [facility] | [address] | [place] [address] | | | [place] | | | | + + + [...] + + + + | [facility] | [address] | [place] [address] | | | SERVICES, CORE | BERTRAM [...] | + + + + + | [facility] | [address] | [place] [address] | | | SERVICES, CORE | BERTRAM [...] + + + + | [facility] | [address] | [place] [address] | | | SERVICES, CORE | BERTRAM [...] | [facility] | [address] | [place] [address] | | | ARON, JANELL | BERTRAM [...] + + + + | [facility] | [address] | [place] [address] | | | PATHOLOGY | [address] [...] [facility] | [address] | [place] [address] | | | SERVICES, CORE | PARK [...] | + + + + + | [facility] | [address] | [place] [address] | | | ARON, [facility] | [address] | | | + [...] [facility] | [address] | [place], [place] | | | [facility] | [address] | [address] | | | TESTS | | | [...] | + + + + + | [facility] | [address] | [place] [address] | | | SERVICES, CORE | BERTRAM [...] [facility] | [address] | [place] [address] | | | ARON, CORE | BERTRAM [...] | + + + + + | [facility] | [address] | [place] [address] | | | SERVICES, CORE | BERTRAM [...] 60 - 99 mg/dL | [facility] - | | | GLUCOSE, [...] [facility] | [address] | [place], [place] | | | [facility] CARE | [address] | [address] | | | TESTS | | | [...] | + + + + + | [facility] | [address] | [place] [address] | | | SERVICES, CORE | BERTRAM [...] | + + + + + | [facility] | [address] | [place] [address] | | | SERVICES, CORE | BERTRAM [...] [facility] | [address] | [place] [address] | | | SERVICES, CORE | PARK [...] | + + + + + | [facility] | [address] | [place] [address] | | | SERVICES, CORE | BERTRAM [...] + + + + | PRODUCT | [id number] | | [facility] | | | UNIT [...] + + + + | BLOOD | [id number] | | [facility] | | | PRODUCT [...] [facility] | [address] | [place] [address] | | | PATHOLOGY | [address] [...] + + + + | PRODUCT | [id number] | | [facility] | | | UNIT [...] + + + + | BLOOD | 97414 | | [facility] | | | PRODUCT [...] + + + | [facility] | [address] | [place] [address] | | | PATHOLOGY | [address] [...] [facility] | [address] | [place], [place] | | | [facility] CARE | [address] | [address] | | | TESTS | | | [...] | + + + + + | [facility] | [address] | [place] [address] | | | JANELL SHARP | BERTRAM [...] view image for the detailed interpretation from MTailor results. | CARDIOLOGY | + + + + + + + + | Performing | Address | City/State/Zipcode | Phone Number | | Organization | | | | + + + + + | [facility] | [address] | [place], [place] | | | CARDIOLOGY | [address] | [address] | | + + + + + [...] [facility] | [address] | [place] [address] | | | SERVICES, CORE | BERTRAM [...] + + + + | PRODUCT | [id number] | | [facility] | | | UNIT [...] + + + + | BLOOD | 17471 | | [facility] | | | PRODUCT [...] + + + | [facility] | [address] | [place] [address] | | | PATHOLOGY | [address] [...] + + + + | PRODUCT | [id number] | | [facility] | | | UNIT [...] + + + + | BLOOD | 23677 | | [facility] | | | PRODUCT [...] + + + + | [facility] DE[facility] | [address] | [place] [address] | | | PATHOLOGY | [address] [...] [facility] | [address] | [place] [address] | | | SERVICES, CORE | PARK [...] [facility] | [address] | [place] [address] | | | JANELL SHARP | [address] [...] + + + + | [facility] | [address] | [place] [address] | | | JANELL SHARP | [address] [...] [facility] | [address] | [place] [address] | | | SERVICES, CORE | PARK [...] [facility] | [address] | [place] [address] | | | SERVICES, | [address] [...] [facility] | [address] | [place] [address] | | | SERVICES, | [address] [...] + + + + | PRODUCT | [id number] | | [facility] | | | UNIT [...] + + + + | BLOOD | 84269 | | [facility] | | | PRODUCT [...] + + + | [facility] | [address] | [place] [address] | | | PATHOLOGY | [address] [...] + + + + | PRODUCT | [id number] | | [facility] | | | UNIT [...] + + + + | BLOOD | 25024 | | [facility] | | | PRODUCT [...] DEPARTMENT OF | [address] | [place] [address] | | | PATHOLOGY | [address] [...] [facility] | [address] | [place] [address] | | | SERVICES, CORE | PARK [...] + + + + | [facility] | [address] | [place] [address] | | | SERVICES, CORE | PARK [...] | + + + + + | [facility] | [address] | [place] [address] | | | SERVICES, CORE | PARK [...] | + + + + + | [facility] | [address] | [place] [address] | | | SERVICES, CORE | PARK [...] [facility] | [address] | [place] [address] | | | JANELL SHARP | BERTRAM [...] [facility] | [address] | [place] [address] | | | SERVICES, CORE | PARK [...] [facility] | [address] | [place] [address] | | | SERVICES, CORE | PARK [...] [facility] | [address] | [place] [address] | | | SERVICES, CORE | PARK [...] [facility] | [address] | [place] [address] | | | JANELL SHARP | BERTR[address] [...] [facility] | [address] | [place] [address] | | | SERVICES, CORE | PARK [...] [facility] | [address] | [place] [id number] | | | SERVICES, CORE | BERTRAM [...] [facility] | [address] | [place] [address] | | | SERVICES, CORE | PARK [...] [facility] | [address] | [place] [address] | | | SERVICES, CORE | PARK [...] [facility] | [address] | [place] [address] | | | SERVICES, CORE | PARK [...] | + + + + + | [facility] | [address] | [place] [address] | | | JANELL SHARP | [address] [...] oral, | | | | | | [id number] hrs | | | | | | [...] + +---------+ + + | [facility] DEPARTMENT OF | | | [...] [facility] | [address] | [place] [address] | | | SERVICES, CORE | PARK [...] + + + + | [facility] | [address] | [place] [address] | | | SERVICES, CORE [...] | + + + + + | [facility] | [address] | [place] [address] | | | SERVICES, CORE | BERTRAM [...] | + + + + + | [facility] | [address] | [place] [address] | | | SERVICES, CORE | BERTRAM [...] [facility] | [address] | [place] [address] | | | SERVICES, CORE | PARK [...] | | | | Final | | [place] | | | | CULTURE RESULT:< 10,000 [...] + | [facility] | [address] | [place] [address] | | | [facility] | | | | + + [...] [facility] | [address] | [place] [address] | | | SERVICES, CORE | PARK [...] [facility] | [address] | [place] [address] | | | SERVICES, JANELL | BERTRAM [...] + + | [facility] | [address] | [place] [address] | | | JANELL SHARP | [address]TRAM [...] + + + + | [facility] | [address] | [place] [address] | | | SERVICES, CORE | PARK [...] | 103 | BPM | [facility] DEPT | | | RATE [...] by | | | | | | ARCHEL MESSER (171) on | | | | | | 03/25/2012 8:07:08 AM | | | | + + + + + + + + | Specimen | + + | | + + + + + | Narrative | Performed At | + + + | Please click | [facility] | | on view image for the detailed interpretation from MTailor results. | CARDIOLOGY | + + + + + + + + | Performing | Address | City/State/Zipcode | Phone Number | | Organization | | | | + + + + + | [facility] | [address] | [place], [place] | | | CARDIOLOGY | [address] | [address] | | + + + + + [...] [facility] | [address] | [place] [address] | | | SERVICES, CORE | PARK [...] [facility] | [address] | [place] [address] | | | SERVICES, CORE | BERTRAM [...] | + + + + + | [facility] | [address] | [place] [address] | | | SERVICES, CORE | PARK [...] + + + + | [facility] | [address] | [place] [address] | | | SERVICES, JANELL | BERTRAM [...] [facility] | | | | | | [facility] | | | | | | [place] [address] | | | | | | [phone].[employer]. | | | | | | [...] [facility] | [address] | [place], [place] | | | [facility] | | [address] | | + + + + + [...] | + + + + + | [facility] | [address] | [place] [address] | | | SERVICES, JANELL | BERTRAM [...] CULTURE, BLOOD BACTI & YEAST [facility] (03/22/2012 7:09 PM PST) + + [...] | + + + + + | [facility] | [address] | [place] [address] | | | SERVICES, CORE | BERTRAM [...] + + + + | [facility] | [address] | [place] [address] | | | SERVICES, CORE | BERTRAM [...] | | | | | XIN GARZON (9181) | | | | | | on 03/22/2012 4:25:06 PM | | | | + + + + + + + + | Specimen | + + | | + + + + + | Narrative | Performed At | + + + | Please click | [facility] | | on view image for the detailed interpretation from MTailor results. | CARDIOLOGY | + + + + + + + + | Performing | Address | City/State/Zipcode | Phone Number | | Organization | | | | + + + + + | [facility] | [address] | [place], [place] | | | CARDIOLOGY | [address] | [address] | | + + + + + [...] [facility] | [address] | [place], [place] | | | [facility] | [facility] | [address] | | | TESTS | | | [...] [facility] | [address] | [place], [place] | | | [facility]INT OF CARE | [facility] | [address] | | | TESTS | | | [...] + + + + | [facility] | [address] | [place] [address] | | | SERVICES, CORE | PARK [...] [facility] | [address] | [place] [address] | | | SERVICES, CORE | PARK [...] + + | [facility] | [address] | [place] [address] | | | SERVICES, CORE | PARK [...] [facility] | [address] | [place] [address] | | | SERVICES, CORE | BERTRAM [...] + + + + | [facility] | [address] | [place] [address] | | | SERVICES, CORE | BERTRAM [...] 60 - 99 mg/dL | [facility] - | | | GLUCOSE, [...] [facility] | [address] | [place], [place] | | | [facility]ARE | [address] | [address] | | | TESTS | | | [...] | + + + + + | [facility] | [address] | [place] [address] | | | ARON, JANELL | BERTRAM [...] 60 - 99 mg/dL | [facility] - | | | GLUCOSE, [...] [facility] | [address] | [place], [place] | | | [facility] OF CARE | [address] | [address] | | | TESTS | | | [...] view image for the detailed interpretation from MTailor results. | CARDIOLOGY | + + + + + + + + | Performing | Address | City/State/Zipcode | Phone Number | | Organization | | | | + + + + + | [facility] | [address] | [place], [place] | | | CARDIOLOGY | [address] | [address] | | + + + + + [...] [facility] | [address] | [place], [place] | | | [facility] [place] | [address] | [address] | | | TESTS | | | | + + + + + VASC LAB ANKLE BRACH INDICS W WAVEFORM BILAT (03/21/2012 8:17 AM PST) + + + + + + | Component | Value | Ref Range | Performed | Pathologist | | | | | At | Signature | + + + + + + | [facility] | ANKLE BRACHIAL INDEX | | [...] + + + + | [facility] | [address] | [place] [address] | | | SERVICES, CORE | PARK [...] | + + + + + | [facility] | [address] | [place] [address] | | | SERVICES, CORE | BERTRAM [...] | + + + + + | [facility] | [address] | [place] [address] | | | SERVICES, CORE | PARK [...] + + + + | [facility] | [address] | [place] [address] | | | SERVICES, CORE | BERTRAM [...] [facility] | [address] | [place] [id number] | | | JANELL SHARP | BERTRAM [...] GARCIA | | | | | | (4444) on 03/22/2012 | | | | | | 12:47:28 PM | | | | + + + + + + + + | Specimen | + + | | + + + + + | Narrative | Performed At | + + + | Please click | [facility] | | on view image for the detailed interpretation from MTailor results. | CARDIOLOGY | + + + + + + + + | Performing | Address | City/State/Zipcode | Phone Number | | Organization | | | | + + + + + | [facility] | [address] | [place], [place] | | | CARDIOLOGY | [address] | [address] | | + + + + + [...] | + + + + + | [facility] | [address] | [place] [address] | | | SERVICES, CORE | BERTRAM [...] LABORATORY | [address] | [place] [address] | | | JANELL SHARP | BERTRAM [...] 60 - 99 mg/dL | [facility] - | | | GLUCOSE, [...] [facility] | [address] | [place], [place] | | | [facility] | [address] | [address] | | | TESTS | | | [...] view image for the detailed interpretation from MTailor results. | CARDIOLOGY | + + + + + + + + | Performing | Address | City/State/Zipcode | Phone Number | | Organization | | | | + + + + + | [facility] | [address] | [place], [place] | | | CARDIOLOGY | [address] | [address] | | + + + + + [...] [facility] | [address] | [place], [place] | | | [facility] [place] | [facility] | [address] | | | TESTS | | | [...] [facility] | [address] | [place], [place] | | | [facility]ARE | [address] | [address] | | | TESTS | | | [...] [facility] | [address] | [place] [address] | | | SERVICES, JANELL | BERTRAM [...] | + + + + + | [facility] | [address] | [place] [address] | | | ARON, JANELL | BERTRAM [...] + + + + | [facility] | [address] | [place] [address] | | | JANELL SHARP | [address]ERTRAM [...] + + + + | [facility] | [address] | [place] [address] | | | SERVICES, CORE | BERTRAM [...] 60 - 99 mg/dL | [facility] - | | | GLUCOSE, [...] [facility] | [address] | [place], [place] | | | [facility] | [address] | [address] | | | TESTS | | | [...] [facility] | [address] | [place], [place] | | | [facility] [place] | [address] | [address] | | | TESTS | | | [...] + + + + | [facility] | [address] | [place] [address] | | | SERVICES, CORE | PARK [...] + + + + | [facility] | [address] | [place] [address] | | | JANELL SHARP | BERTRAM [...] [facility] | [address] | [place], [place] | | | [facility] | [address] | [address] | | | TESTS | | | [...] view image for the detailed interpretation from MTailor results. | CARDIOLOGY | + + + + + + + + | Performing | Address | City/State/Zipcode | Phone Number | | Organization | | | | + + + + + | [facility] | [address] | [place], [place] | | | CARDIOLOGY | [address] | [address] | | + + + + + [...] [facility] | [address] | [place], [place] | | | [facility] [place] | [address] | [address] | | | TESTS | | | [...] - [facility] | [address] | [place], [place] | | | [facility] CARE | [address] | [address] | | | TESTS | | | [...] [facility] | [address] | [place] [address] | | | SERVICES, CORE | BERTRAM [...] [facility] | [address] | [place] [address] | | | SERVICES, CORE | PARK [...] [facility] | [address] | [place] [address] | | | SERVICES, CORE | PARK [...] | + + + + + | [facility] | [address] | [place] [address] | | | SERVICES, JANELL | BERTRAM [...] | | | | Final | | [place] | | | | CULTURE RESULT:No growth [...] + | [facility] - | [address] | [place] [address] | | | [place] | | | | + + + [...] | + + + + + | [facility] | [address] | [place] [address] | | | SERVICES, CORE | BERTRAM [...] [facility] | [address] | [place] [address] | | | SERVICES, CORE | PARK [...] [facility] | [address] | [place] [address] | | | JANELL SHARP | BERTRAM [...] [facility] | [address] | [place] [address] | | | SERVICES, CORE | PARK [...] + | [facility] | [address] | [place] [address] | | | SERVICES, CORE [...] - [facility] | [address] | [place], [place] | | | [facility] | [address] | [address] | | | TESTS | | | [...] + + + + | [facility] | [address] | [place] [address] | | | SERVICES, CORE | BERTRAM [...] [facility] | [address] | [place], [place] | | | [facility] [place] | [address] | [address] | | | TESTS | | | [...] [facility] | [address] | [place] [address] | | | SERVICESJANELL | [address] [...] + + + + | [facility] | [address] | [place] [address] | | | SERVICES, CORE | BERTRAM [...] SANDERS | [address] | [place], [place] | | | [facility] | [address] | [address] | | | TESTS | | | | + + + + + OPERATION RECORD (03/18/2012 11:22 AM PST) + + | Transcriptions | + + | Mirela Salgado MD - 03/18/2012 8:38 AM PST Date: 03/17/2012ttending | | Surgeon: Mirela Salgado M.D.Biology Tutor(s): Sandoval | | Bennett Galvez M.D.Preoperative Diagnosis(es):Embolus, [...] | tolerated the procedure well.MIRELA SALGADO, [facility] Centeressor of SurgeryN[facility] / [id number] / | | [id number] / [id number] / T: 03/17/2012 | |was no pulse. [...] | | | |MIRELA SALGADO MD | |french folder | | | |[facility] / | |[id number] / [id number] / [id number] / | | | | | + + HEPARIN, EITHER STANDARD / LMW, BLOOD (03/18/2012 10:26 AM [facility]) + +-------+ + + + | [...] | + + + + + | [facility] | [address] | [place] [address] | | | ARON, CORE | BERTRAM [...] [facility] | [address] | [place] [address] | | | SERVICES, JANELL | BERTRAM [...] [facility] | [address] | [place] [address] | | | SERVICES, CORE | PARK [...] [facility] | [address] | [place] [address] | | | SERVICES, CORE | PARK [...] [facility] | [address] | [place] [address] | | | SERVICES, CORE | PARK [...] LABORATORY | [address] | [place] [address] | | | SERVICES, CORE | PARK [...] + + + + | [facility] | [address] | [place] [address] | | | SERVICES, CORE | BERTRAM [...] SANDERS | [address] | [place], [place] | | | [facility] | [address] | [address] | | | TESTS | | | [...] [facility] | [address] | [place], [place] | | | [facility] | [address] | [address] | | | TESTS | | | [...] [facility] | [address] | [place], [place] | | | [facility] | [address] | [address] | | | TESTS | | | [...] [facility] | [address] | [place] [address] | | | SERVICES, JANELL | BERTRAM [...] | + + + + + | [facility] | [address] | [place] [address] | | | SERVICES, CORE | PARK [...] + + + + | [facility] | [address] | [place] [address] | | | SERVICES, CORE | BERTRAM [...] [facility] | [address] | [place] [address] | | | ARON, JANELL | PARK [...] 60 - 99 mg/dL | [facility] - | | | GLUCOSE, [...] - MAR[facility] | [address] | [place], [place] | | | [facility] | [address] | [address] | | | TESTS | | | [...] [facility] | [address] | [place] [address] | | | SERVICES, | [address] [...] [facility] | [address] | [place] [address] | | | SERVICES, | [address] [...] + + + + | [facility] | [address] | [place] [address] | | | JANELL SHARP | BERTRAM [...] 60 - 99 mg/dL | [facility] - | | | GLUCOSE, [...] + + + | [facility] | [address] | [place], [place] | | | [facility] | [address] | [address] | | | TESTS | | | [...] + +---------+ + + | [facility] DEPARTMENT OF | | | [...] MARILYN | [address] | [place], [place] | | | [facility] [place] | [facility] | [address] | | | TESTS | | | [...] 60 - 99 mg/dL | [facility] - | | | GLUCOSE, [...] [facility] | [address] | [place], [place] | | | OSCAR POINT OF CARE | [address] | [address] | | | TESTS | | | [...] | + + + + + | [facility] | [address] | [place] [address] | | | SERVICES, CORE | BERTRAM [...] + + | [facility] | [address] | [place], [place] | | | [facility] CARE | [address] | [address] | | | TESTS | | | [...] + + + + | [facility] | [address] | [place] [address] | | | SERVICES, CORE | PARK [...] [facility] | [address] | [place] [address] | | | SERVICES, CORE | PARK [...] [facility] | [address] | [place] [address] | | | SERVICESJANELL | [address] [...] + + + + | [facility] | [address] | [place] [address] | | | SERVICES, CORE | BERTRAM [...] SANDERS | [address] | [place], [place] | | | [facility]SCAR POINT [facility] CARE | [address] | [address] | | | TESTS | | | [...] MARILYN | [address] | [place], [place] | | | [facility] | [address] | [address] | | | TESTS | | | [...] + +---------+ + + | [facility] DEPARTMENT OF | | | [...] Kirstie | | | | | | [place] | | | | + + + + + + + + | Specimen | + + | | + + + +---------+ + + | Performing | Address | City/State/Zipcode | Phone Number | | Organization | | | | + +---------+ + + | [facility] DEPARTMENT OF | | | [...] [facility] | [address] | [place], [place] | | | [facility] | [address] | [address] | | | TESTS | | | [...] DAVIDAM | [address] | [place], [place] | | | [facility] | [address] | [address] | | | TESTS | | | [...] | + + + + + | [facility] | [address] | [place] [address] | | | SERVICES, SPECIAL | PARK [...] + + | [facility] | [address] | [place] [address] | | | SERVICES, SPECIAL | BERTRAM [...] [facility] | [address] | [place] [address] | | | SERVICES, SPECIAL | PARK [...] [facility] | [address] | [place] [address] | | | SERVICES, SPECIAL | PARK [...] + + | [facility] | [address] | [place] [address] | | | ARON, JANELL | BERTRAM [...] | + + + + + | [facility] | [address] | [place] [address] | | | SERVICES, CORE | BERTRAM [...] [facility] | [address] | [place] [address] | | | SERVICES, CORE | PARK [...] | + + + + + | [facility] | [address] | [place] [address] | | | ARON, JANELL | BERTRAM [...] MARILYN | [address] | [place], [place] | | | [facility] | [address] | [address] | | | TESTS | | | [...] + + + + | [facility] | [address] | [place] [address] | | | SERVICES, CORE | BERTRAM [...] SANDERS | [address] | [place], [place] | | | [facility] [place] | [facility] | [address] | | | TESTS | | | [...] MARILYN | [address] | [place], [place] | | | [facility]ARE | [address] | [address] | | | TESTS | | | [...] Davina | | | | | | Charles | | | | + + + [...] [facility] | [address] | [place], [place] | | | [facility] | [address] | [address] | | | TESTS | | | [...] + + + + | PRODUCT | [id number] | | [facility] | | | UNIT [...] + + + + | BLOOD | 84824 | | [facility] | | | PRODUCT [...] + + + | [facility] | [address] | [place] [address] | | | PATHOLOGY | [address] [...] + + + + | PRODUCT | [id number] | | [facility] | | | UNIT [...] + + + + | BLOOD | 68570 | | [facility] | | | PRODUCT [...] DEPARTMENT OF | [address] | [place] [address] | | | PATHOLOGY | [address] [...] [facility] | [address] | [place] [address] | | | SERVICES, CORE | PARK [...] - MARGOPIAM | [address] | [place], [place] | | | [facility]ARE | [address] | [address] | | | TESTS | | | [...] SANDESR | [address] | [place], [place] | | | [facility] [place] | [address] | [address] | | | TESTS | | | [...] [facility] | [address] | [place] [address] | | | SERVICES, CORE | BERTRAM [...] [facility] | [address] | [place] [address] | | | SERVICES, CORE | PARK [...] | + + + + + | [facility] | [address] | [place] [address] | | | SERVICES, CORE | BERTRAM [...] | | If supplementation does | | [facility] | | | | not correct [...] if | | | | | | [id number] >400: | | | | | | [...] + | [facility] | [address] | [place] [address] | | | [place] | | | [...] [facility] | [address] | [place] [address] | | | SERVICES, CORE | PARK [...] [facility] | [address] | [place] [address] | | | SERVICES, CORE | PARK [...] | + + + + + | [facility] | [address] | [place] [address] | | | SERVICES, CORE | BERTRAM [...] - | | | | | | [place] | | + + + + + + + + | Specimen | + + | Blood - Blood | + + + + + + + | Performing | Address | City/State/Zipcode | Phone Number | | Organization | | | | + + + + + | [facility] | [address] | [place] [address] | | | [place] | | | | + + + [...] [facility] | [address] | [place], [place] | | | [facility] | [address] | [address] | | | TESTS | | | [...] [facility] | [address] | [place] [address] | | | SERVICES, CORE | PARK [...] 1.6 mmol/L | LABORATORY | | | JANLEL SHARP | + + + + + + + + | Performing | Address | City/State/Zipcode | Phone Number | | Organization | | | | + + + + + | [facility] | [address] | [place] [address] | | | SERVICES, CORE | BERTRAM [...] - DAVID[facility] | [address] | [place], [place] | | | [facility] | [address] | [address] | | | TESTS | | | [...] | + + + + + | [facility] | [address] | [place] [address] | | | SERVICES, CORE | BERTRAM [...] gas. | | | | | | [id number] left | | | | | | [...] [facility] | [address] | [place], [place] | | | [facility] [place] | [address] | [address] | | | TESTS | | | [...] % | [facility] | | | | [facility],[address] | | [address] | | | | [employer], [facility],[place] | | PTH - INT[facility] | | | | [address] | | | | | | [phone].[employer] | | | | | | [...] [facility] | [address] | [place], [place] | | | UNIV PTH - INT[facility] | | [address] | | + + + + + [...] | + + + + + | [facility] | [address] | [place] [address] | | | SERVICES, CORE | BERTRAM [...] | + + + + + | [facility] | [address] | [place] [address] | | | SERVICES, CORE | BERTRAM [...] [facility] | [address] | [place], [place] | | | [facility] [place] | [address] | [address] | | | TESTS | | | [...] + + + + | [facility] | [address] | [place] [address] | | | ARON, CORE | PARK [...] + + + + | [facility] | [address] | [place] [address] | | | SERVICES, CORE | BERTRAM [...] 60 - 99 mg/dL | [facility] - | | | GLUCOSE, [...] + + + | [facility] | [address] | [place], [place] | | | [facility] | [address] | [address] | | | TESTS | | | [...] | + + + + + | [facility] | [address] | [place] [address] | | | SERVICES, CORE | PARK [...] | + + + + + | [facility] | [address] | [place] [address] | | | SERVICES, CORE | BERTRAM [...] | + + + + + | [facility] | [address] | [place] [address] | | | SERVICES, CORE | BERTRAM [...] + + + + | [facility] | [address] | [place] [address] | | | SERVICES, CORE | PARK [...] [facility] | [address] | [place] [address] | | | SERVICES, CORE | PARK [...] | + + + + + | [facility] | [address] | [place] [address] | | | SERVICES, CORE | PARK [...] + | [facility] | [address] | [place] [address] | | | [place] | | | [...] | | | Final CULTURE | | [place] | | | | RESULT:Salmonella, | | [...] + | [facility] | [address] | [place] [address] | | | [place] | | | [...] + + + + | [facility] | [address] | [place] [address] | | | SERVICES, CORE | BERTRAM [...] 60 - 99 mg/dL | [facility] - | | | GLUCOSE, [...] [facility] | [address] | [place], [place] | | | [facility] | [address] | [address] | | | TESTS | | | [...] [facility] | [address] | [place], [place] | | | CARDIOLOGY | [address] | [address] | | + + + + + [...] [facility] | [address] | [place] [address] | | | SERVICES, CORE | [address] | | | + + + + + CULTURE, BLOOD BACTI & YEAST [facility] (03/12/2012 9:50 PM PST) + [...] | + + + + + | [facility] | [address] | [place] [address] | | | SERVICES, CORE | BERTRAM [...] [facility] | [address] | [place] [address] | | | SERVICES, CORE | PARK [...] + + + + | [facility] | [address] | [place] [address] | | | SERVICES, CORE | PARK [...] - [facility] | [address] | [place], [place] | | | [facility] | [facility] | [address] | | | TESTS | | | [...] [facility] | [address] | [place] [address] | | | SERVICES, CORE | PARK [...] [facility] | [address] | [place] [address] | | | SERVICES, CORE | PARK [...] [facility] | [address] | [place] [address] | | | SERVICES, | [address] [...] | + + + + + | [facility] | [address] | [place] [address] | | | SERVICES, | [address] [...] | + + + + + | [facility] | [address] | [place] [address] | | | SERVICES, CORE | BERTRAM [...] [facility] | [address] | [place] [address] | | | JANELL SHARP | PARK [...] | + + + + + | [facility] | [address] | [place] [address] | | | JANELL SHARP | BERTRAM [...]
--- OUTSIDE RECORDS SUMMARY | ~2019-03-09 | XMS | Encounter Summary ---
Demographics + + + | Address | [address] | | | [place] [address] | + + + | Home Phone [...] Phone | + + +---------+ + | oKle Willingham | ECON | Unknown | | + + +---------+ + | Terrance Sofy | ECON | Unknown | | + + +---------+ + Care Team Providers + +------+ + | Care Tube Filler Name | Role | Phone | + +------+ + PCP | Unavailable | + +------+ + Encounter Details +--------+ + + + + | Date | Type | Department | Care Team | Description | +--------+ + + + + | 02/11/ | Hospital | [facility] | Veena Tobar, | | | 2017 - | Encounter | [facility] | MD [address] | | | | | CARE FLOOR [address] | [place] [address] | | | 02/15/ | | [address] | [phone] | | | 2017 | | [place], [place] | | | | | | [address] | | | | | | [phone] | | | +--------+ + + + [...] Date of Service: 02/15/17 1029 Status: Signed Tube Builder Airplane: Aguila Bernard DO (Physician) [facility] [...] levofloxacin + IV fluid. Cultures obtained at [facility] showed E coli s usceptible to [...] Status: DNR/DNI Follow up: Alireza Krishna MD [address], [address]ER [address] [employer] [address] Enrique Bocanegra MD [address] [place] [id number] Medication List START taking these medications [...] 02/15/171246 Date of Service: 02/15/171246 Status: Signed Tube Builder Airplane: Gayatri J. Newlun, RN (Registered Nurse) Patient d/c instructions reviewed with patient. Script faxed to [facility] in [place] per pt request. Awaiting [facility] to meet with patient prior to d/c. Spouse to provide trans portation. Gayatri Carrasquillo RN ongenaro islas Transaction, Provider Unknown - 02/15/2017 11:03 AM PST Case Management by Morgan Richards RN at 02/15/17 1103 Author: Morgan Richards RN Service: (none) Author Type: Registered Nurse Filed: 02/15/17 1108 Date of Service: 02/15/17 110 Status: Signed Tube Builder Airplane: Morgan Richards RN (Registered Nurse) 02/15/17 1100 [...] Date of Service: 02/15/17 0809 Status: Addendum Tube Builder Airplane: Giulia Albert PT (Physical Therapist) Related Notes: [...] wheeled (bedside commode) Prior Function Level of Rupert Independent with functional mobility;Independent with ADLs;Assist wi [...] Response to Education: stated understanding Low - 01613 Moderate - 68715 High - 23154 History no personal factors &/or comorbidities Examination 1-2 elements Clinical Presentation stable Clinical Decision Making Complexity: Low 93745 Giulia Albert, PT 02/15/2017 12:11 PM Erin Roca DO - 02/15/2017 6:38 AM PSTFormatting of this note might be different from the briana ginal. Progress Notes by Erin Turner DO at 02/15/17637 Author: Erin Turner DO Service: (none) Author Type: Physician Filed: 02/15/1732 Date of Service: 02/15/17637 Status: Signed Tube Builder Airplane: Erin Turner DO (Physician) [facility] [...] presented to the emergency d epartment at [facility] in [place]. Workup there did show significant pyuria, and [...] >60 02/15/2017 Microbiology: Urine culture collected at [facility] has greater than 100,000 colo nies of Escherichia coli which is susceptible to levofloxacin. PROBLEM LIST Principal Problem: Sepsis(995.91) due to UTI Active Problems: Crohn's disease (HCC) GERD (gastroesophageal reflux disease) HTN (hypertension) Chronic anticoagulation Hypertension Current chronic use of systemic steroids Neuropathy Encephalopathy in sepsis Immunosuppressed status ([facility]) ASSESSMENT & PLAN Sepsis(995.91) due [...] Management by Morgan Richards RN at 02/14/17 6906 Author: Morgan Richards RN Service: (none) Author Type: Registered Nurse Filed: 02/14/17 3167 Date of Service: 02/14/17 1556 Status: Signed Tube Builder Airplane: Morgan Richards RN (Registered Nurse) 02/14/17 1500 Discharge Planning Evaluation Admitting Diagnosis Sepsis due to UTI Anticipated Disposition Facility Type Home;Home infusion Home Infusion & Tube/Enteral Feedings [facility] I spoke with Rhianna from [facility] to follow-up on Pt. Pt. was previously established wit [facility] in [place]. Aguila Jackson DO - 02/14/2017 3:38 PM PSTFormatting of this note might be different from the briana ginal. Progress Notes by Aguila Bernard DO at 02/14/17 1538 Author: Aguila Bernard DO Service: Hospitalist Author Type: Physician Filed: 02/14/17 1547 Date of Service: 02/14/17 1538 Status: Signed Tube Builder Airplane: Aguila Bernard DO (Physician) PROGRESS NOTE 02/14/2017 [...] Date of Service: 02/14/17 1530 Status: Signed Tube Builder Airplane: Yusra Oconnor PT (Physical Therapist) 02/14/17 1530 [...] Date of Service: 02/14/17 1146 Status: Signed Tube Builder Airplane: Yusra Oconnor PT (Physical Therapist) 02/14/17 1146 PT Last Visit PT Received On 02/14/17 Reason for Treatment Deconditioning (sepsis) Requires PT Follow Up Unavailable Other Comments Comments PURCHASER present administerring bed bath; RN requests PT [...] 02/14/17830 Date of Service: 02/14/17830 Status: Signed Tube Builder Airplane: Latha Hall RPH (Pharmacist) TPN notes: Potassium [...] 02/14/17824 Date of Service: 02/14/17641 Status: Signed Tube Builder Airplane: Erin Turner DO (Physician) [facility] [...] presented to the emergency d epartment at [facility] in [place]. Workup there did show significant pyuria, and [...] >60 02/14/2017 Microbiology: Urine culture collected at [facility] has greater than 100,000 colo nies of a lactose fermenting gram-negative rods, further identification and susceptibility p ending. No blood cultures were sent. PROBLEM LIST Principal Problem: Sepsis(995.91) due to UTI Active Problems: Crohn's disease ([facility]) GERD (gastroesophageal reflux disease) HTN (hypertension) Chronic anticoagulation Hypertension Current chronic use of systemic steroids Neuropathy Encephalopathy in sepsis Immunosuppressed status ([facility]) ASSESSMENT & PLAN Sepsis(995.91) due to UTI / Immunosuppressed status (07/19/2014) The patient presents with sepsis in the setting of immunosuppression, with workup thus fa r most suggestive of urinary tract infection. The patient has had improving white blood cell count and resolution of fevers with levofloxacin. Await final urine culture results from [facility] outside hospital. Unfortunately, no blood cultures were sent, therefore will need surveill ance blood cultures drawn from her [facility] 1-2 weeks after completing her antibiotic therap y. Crohn's disease ([facility]) (04/12/2014) The patient has recently been treated with Humira, prednisone, and tincture of opium. Encephalopathy in sepsis (02/11/2017) Improving, will continue to monitor. Code Status: DNR/DNI ERIN TURNER DO 02/14/2017 onversion Transaction , Provider Unknown - 02/14/2017 5:06 AM PST Progress Notes by Tanika Alaniz RN at 02/14/17 8140 Author: Tanika Alaniz RN Service: (none) Author Type: Registered Nurse Filed: 02/14/17 9042 Date of Service: 02/14/17 753 Status: Signed Tube Builder Airplane: Tanika Alaniz RN (Registered Nurse) Pt A+Ox4, VSS. Pt continued to c/o generalized body pain 11/18, received morphine q3h throug hout shift. Awaiting blood and urine cultures from [facility]. Tanika Alaniz RN yee, Makenzie Arshad MD - 02/13/2017 1:16 PM PST Progress Notes by Makenzie Raymond MD at 02/13/17 1316 Author: Makenzie Raymond MD Service: (none) Author Type: Physician Filed: 02/13/17 6260 Date of Service: 02/13/17 1316 Status: Addendum Tube Builder Airplane: Makenzie Raymond MD (Physician) Related Notes: Original Note by Makenzie Raymond MD (Physician) filed at 02/13/[address] [facility] Service: Hospitalist Progress Note Pt: Smita Willingham AGE/SEX: 61 y.o. 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 No results for input(s): PHART, PO2ART, PEB1ZEN, Q1SJSMKN, BEART in the last 168 hours. Recent [...] BC f/ up were send out from [facility]' ER . IV fluids on board WBC [...] 02/13/1756 Date of Service: 02/13/17827 Status: Signed Tube Builder Airplane: Erin Turner DO (Physician) [facility] [...] presented to the emergency d epartment at [facility] in [place]. Workup there did show significant pyuria, and [...] culture and blood cultures were collected at [facility] jesse or to transfer. Updated reports have been requested. PROBLEM LIST Principal Problem: Sepsis(995.91) due to UTI Active Problems: Crohn's disease (HCC) GERD (gastroesophageal reflux disease) HTN (hypertension) Chronic anticoagulation Hypertension Current chronic use of systemic steroids Neuropathy Encephalopathy in sepsis Immunosuppressed status ([facility]) ASSESSMENT & PLAN Sepsis(995.91) due [...] 02/13/17728 Date of Service: 02/13/17728 Status: Signed Tube Builder Airplane: Latha Hall RPH (Pharmacist) TPN notes: Blood [...] 0431 Date of Service: 02/13/17427 Status: Signed Tube Builder Airplane: Tanika Alaniz RN (Registered Nurse) Pt A+Ox4, but weak and lethargic. VSS. Morphine x3 given for generalized pain. TPN running through port. Pt incontinent of urine and sometimes stool. Tanika Alaniz RN onver roshan Transaction, Provider Unknown - 02/12/2017 3:59 PM PDT Case Management by Terrance Madsen MS, MSW at 02/12/17 2884 Author: Terrance Madsen MS, MSW Service: (none) Author Type: Healthcare Prof Filed: 02/12/17 1645 Date of Service: 02/12/17 0278 Status: Signed Tube Builder Airplane: Terrance Madsen, MS, HVAC TECH (Healthcare Prof) 02/12/17 2351 Discharge Planning Evaluation Admitting Diagnosis Sepsis due [...] of care post d/c. Pt resides at [facility] with spouse Kole in [facility]. Pt does not drive since she has been ill., her s pouse is able to drive and can come see her. Pt reports a significant history of feeling ill and not be at home lately. 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 She f ollows up with [...] ER. She was thereafter transferred over to [facility] for further care. Patient's PCP is: No primary care provider on file. - Dr. Fernandes. Patient's insurance: medicare, [employer] Coverage concerns:none reported Medication coverage/concerns: none Community resources utilized / needed: uses [place] [facility], [facility] for TPN. May need home health [...] 02/12/171406 Date of Service: 02/12/171406 Status: Signed Tube Builder Airplane: Latha Hall RPH (Pharmacist) Pharmacy Consult for INITIATION of Parenteral Nutrition Smita Willingham 61 y.o. female Ht Readings from Last 1 Encounters: 02/11/17 1.727 m (5' 8") Wt Readings from Last 1 Encounters: 02/11/17 74.5 kg (164 lb 4.8 oz) Trailer Chief recommendations: Recommendations Recommended parenteral nutritional needs for [...] Date of Service: 02/12/17 1224 Status: Signed Tube Builder Airplane: Sofía Chamberlain RPH (Pharmacist) Clinical Pharmacy Note: [...] Date of Service: 02/12/17 1140 Status: Signed Tube Builder Airplane: Sanjuana Spivey RD (Registered Dietitian) 02/12/17 1128 [...] Estimated Energy Needs Total Energy Estimated Needs 0992-2928 kcal Method for Estimating Needs 28-32 kcal/kg [...] Service: (none) Author Type: Physician Filed: 02/12/17 3441 Date of Service: 02/12/17 1122 Status: Addendum Tube Builder Airplane: Makenzie Raymond MD (Physician) Related Notes: Original Note by Makenzie Raymond MD (Physician) filed at 02/12/[address] [facility] Service: Hospitalist Progress Note Pt: Smita Willingham AGE/SEX: 61 y.o. 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 No results for input(s): PHART, PO2ART, IWC8TQP, Y6FIFHJD, BEART in the last 168 hours. Recent [...] UC BC f/ up send out from [facility] ER C.Diff was negative delirium [...] 02/12/17523 Date of Service: 02/12/17518 Status: Signed Tube Builder Airplane: Tanika Alaniz RN (Registered Nurse) Pt received this shift from [facility] with UTI and complex GI hx. [...] | | | Fingerstick | performed at [facility] | | LAB | | | | [address];[place] | | | | | | [address] | | | | + + + [...] | | | Fingerstick | performed at [facility];[address] | | LAB | | | | [address];[place] | | | | | | [address] | | | | + + + [...] | | | | | performed at [facility];[address] | | | | | | [address];[place], [place] | | | | | | [address] | | | | + + + [...] | | | | | performed at [facility];8 | | | | | | [facility];[place], [place] | | | | | | [address] | | | | | |HYPO | | | | | |1+ | | | | | |TARGET | | | | | |1+ | | | | | |OVALO | | | | | |Testing performed at [facility];[address] [place] [address];[place] [address] | | | | | | | [...] EXTERNAL | | | | performed at [facility];8 | | LAB | | | | [address];[place] | | | | | | [address] | | | | + + + [...] EXTERNAL | | | | performed at [facility];[address] | | LAB | | | | [address];[place], [place] | | | | | | [address] | | | | + + + [...] | | | | | | at [facility];[address] | | | | | | [address];[place] [address] | | | | + + + [...] | | | Fingerstick | performed at [facility];[address] | | LAB | | | | [address];[place], [place] | | | | | | [address] | | | | + + + [...] | | | Fingerstick | performed at [facility];[address] | | LAB | | | | [address];[place] | | | | | | [address] | | | | + + + [...] | | | Fingerstick | performed at [facility];[address] | | LAB | | | | [address];[place] | | | | | | [address] | | | | + + + [...] | | | Fingerstick | performed at [facility];[address] | | LAB | | | | [address];[place] | | | | | | [address] | | | | + + + [...] | | | Fingerstick | performed at [facility];[address] | | LAB | | | | [address];[place], [place] | | | | | | [address] | | | | + + + [...] | | | | | performed at [facility];[address] | | | | | | [facility];[place], [place] | | | | | | [address] | | | | + + + [...] | | | | | | at [facility];[address] [facility] | | | | | | [address];[place] [address] | | | | | |ANISO | | | | | |1+ | | | | | |OVALO | | | | | |1+ | | | | | |TARGET | | | | | |NORMAL PLT MORPH | | | | | |Testing performed at [facility];[address];[place] [address] | | | | | | | [...] EXTERNAL | | | | performed at [facility] | | LAB | | | | [address];[place], [place] | | | | | | [address] | | | | + + + [...] LAB | | | | performed at [facility];[address] | | | | | | [address];[place] | | | | | | [address] | | | | + + + [...] | | | | | | at [facility];[address];[place] [address] | | | | + + + [...] | | | Fingerstick | performed at [facility];[address] | | LAB | | | | [address];[place] | | | | | | [address] | | | | + + + [...] | | | Fingerstick | performed at [facility];[address] | | LAB | | | [address];[place], [place] | | | | | | [address] | | | | + + + [...] | | | Fingerstick | performed at [facility];[address] | | LAB | | | | [address];[place] | | | | | | [address] | | | | + + + [...] | | | es | performed at [facility], [address] | | LAB | | | | [address], | | | | | | [place] [address] | | | | + + + [...] [address], | | | | | | [place] [address] | | | | + + + [...] | | | Fingerstick | performed at [facility];[address] | | LAB | | | | [address];[place] | | | | | | [address] | | | | + + + [...] EXTERNAL | | | | performed at [facility];8 | | LAB | | | | [address];[place] | | | | | | [address] | | | | + + + [...] | | | | | performed at [facility] | | | | | | [facility];[place], [place] | | | | | | [address] | | | | + + + [...] | | | | | performed at [facility];[address] | | | | | | [address];[place], [place] | | | | | | [address] | | | | + + + [...] | | | | g performed at [facility], [address] | | | | | | [address] [facility], | | | | | | [place] [address] | | | | | |HYPO | | | | | |2+ | | | | | |TARGET | | | | | |1+ | | | | | |OVALO | | | | | |1+ | | | | | |ACANTHO | | | | | |Testing performed at [facility], [address] [facility], [place] [address] | | | | | | | [...] EXTERNAL | | | | performed at [facility];[address] | | LAB | | | | [address];[place] | | | | | | [address] | | | | + + + [...] LAB | | | | performed at [facility] | | | | | | [address];[place] | | | | | | [address] | | | | + + + [...] | | | | | | at [facility];[address] [place] [address] | | | | | | [facility];[place] [address] | | | | + + + [...] | | | Fingerstick | performed at [facility];[address] | | LAB | | | | [address];[place] | | | | | | [address] | | | | + + + [...] | | | Fingerstick | performed at [facility];[address] | | LAB | | | | [address];[place], [place] | | | | | | [address] | | | | + + + [...] | | | Fingerstick | performed at [facility];[address] | | LAB | | | | [address];[place] | | | | | | [address] | | | | + + + [...] | | | | | performed at [facility] | | | | | | [address];[place], [place] | | | | | | [address] | | | | + + + [...] | | | | | performed at [facility];[address] | | | | | | [address];[place], [place] | | | | | | [address] | | | | + + + [...] EXTERNAL | | | | performed at [facility];[address] | | LAB | | | | [address];[place], [place] | | | | | | [address] | | | | + + + [...] EXTERNAL | | | | performed at [facility];[address] | | LAB | | | | [address];[place] | | | | | | [address] | | | | + + + [...] | | | | | | at [facility];[address] [place] [address] | | | | | | [facility];[place] [address] | | | | + + + [...] C.difficile. | | | Testing performed at [facility];[address] [place] [address];[place] [address] | | + + + + +---------+ [...] EXTERNAL | | | | performed at [facility];888 | mmol/L | LAB | | | | [address];[place], [place] | | | | | | [address] | | | | + + + [...] EXTERNAL | | | | performed at [facility];888 | mmol/L | LAB | | | | [address];[place], [place] | | | | | | [address] | | | | + + + [...] | | | Patient | performed at [facility];[address] | | LAB | | | | [address];[place] | | | | | | [address] | | | | + + + [...] | | | | | performed at [facility] | | | | | | [address] [facility];[place], [place] | | | | | | [...]
--- OUTSIDE RECORDS SUMMARY | ~2019-03-09 | XMS | Encounter Summary ---
Demographics + + + | Address | [address] | | | [place] [address] | + + + | Home Phone | | + + + | Preferred Language | Unknown | + + + | Marital Status | | + + + | Baptism Affiliation | NRP | + + + [...] [place], [place] | | | | | [address] | | + + + + + | [place] | ECON | Unknown | | + + + + + Care Team Providers + +------+ + | Care Ordnance Corps Officer Name | Role | Phone | [...] [address] | | | | | | [place], [place] | | | | | | [address] | | | +--------+ + + + [...]
--- OUTSIDE RECORDS SUMMARY | ~2019-03-09 | XMS | Encounter Summary ---
Demographics + + + | Address | [address] | | | [place] [address] | + + + | Home Phone [...] Team Providers + +------+ + | Care [employer] Salesperson Name | Role | Phone | + +------+ + PCP | Unavailable | + +------+ + Encounter Details +--------+ + + + + | Date | Type | Department | Care Team | Description | +--------+ + + + + | 03/01/ | Hospital | [facility] | Gabriel Myrick | Anemia, unspecified | | 2017 - | Encounter | [facility] | MD [address] | type; Current | | | | CARE FLOOR [address] | chronic use of | | 03/02/ | | [address] | [place] [address] | systemic steroids; | | 2017 | | [place], [place] | [phone] | Gastroesophageal | | | | [address] | | reflux disease | | | | [phone] | | without esophagitis; | | | [...] 1325 Date of Service: 03/02/17705 Status: Attested Supervisor Coil Winding: EDE Otto (Resident-Y2) Cosigner: Chace Benson MD [...] with the progress note of Dr. Jimenez. [facility] Service: Hospitalist Resident Discharge Summary Date of [...] being seen by Dr. Krishna GI in [place]. Antonia he previously underwent a small bowel [...] on file. Follow up: Alireza Krishna MD [address], [address] [address] Call office for appointment. Medication [...] COURT PLACE - [place] - [address], [place] [address] metroNIDAZOLE 500 MG tablet Na sulfate-K sulfate-Mg sulf 17.5-3.13-1.6 GM/180ML Soln neomycin 500 MG tablet scopolamine 1 mg/3days patch These medications were sent to [facility] [address] [place], [place] - [address] [facility] [address] , [place] [address] acetaminophen 325 MG tablet lactobacillus granules potassium [...] Note by Gloria Hernandez RN at 03/02/17 5288 Author: Gloria Hernandez RN Service: (none) Author Type: Registered Nurse Filed: 03/02/17 1600 Date of Service: 03/02/17 1558 Status: Signed Supervisor Coil Winding: Gloria Hernandez RN (Registered Nurse) Discharge instructions given to pt and , all questions answered. VSS. Discharged jena e via private vehicle with . onver roshan Transaction, Provider Unknown - 03/02/2017 12:54 PM PST Case Management by Linh Perez RN at 03/02/17 3065 Author: Linh Perez RN Service: (none) Author Type: Registered Nurse Filed: 03/02/17 1257 Date of Service: 03/02/17 1254 Status: Signed Supervisor Coil Winding: Linh Perez RN (Registered Nurse) Pt to d/c home today with Lovenox. Met with pt and she states she can overnight caregiver herself Lovenox injections. Faxed script to [facility] pharmacy for russell check. Notified Marilin with [facility] of d/c. Faxed resumption order to [facility]. Family to trasnport pt home KAMRYN signed Nika Do Patel [facility] - 03/02/2017 12:47 PM PSTFormatting of this note might be different from the or iginal. Progress Notes by Do Hussein RPH at 03/02/17 879 Author: Do Hussein RPH Service: Pharmacy Author Type: Pharmacist Filed: 03/02/17 124 Date of Service: 03/02/171246 Status: Signed Supervisor Coil Winding: Do Hussein RPH (Pharmacist) INITIATION OF Parenteral Nutrition: Smita Willingham 61 y.o. female Height: Ht Readings from Last 1 Encounters: 03/02/17 1.727 m (5' 8") Weight: Wt Readings from Last 1 Encounters: 03/02/17 74.2 kg (163 lb 9.3 oz) Body Mass Index: Body mass index is 24.87 kg/m. [place] Body Weight: 63.9kg Adjusted Body Weight: 68.0kg Creatinine: CREATININE Date Value Ref Range Status 03/02/2017 0.7 0.50 - 1.00 mg/dL Final Estimated CrCl : Serum creatinine: 0.7 mg/dL 03/02/17 0405 Estimated creatinine clearance: 85.1 mL/min Estimated Needs: Basal Energy Expenditure (BEE): 1409kcal BEE x Major Non - Elective Surgery: = 6257-5272 Kcal needed per day Protein Requirements: Infection, Major Surgery, Cancer: 1.3 - 1.6 g/kg/day PN Line: Central Dextrose: 20% Amino Acids: 6% Lipid 20% 250 mL PN Goal Rate: 65 mL/hr PN Rate on Day 1: 25 mL/hr for 24 hours Amount of non-protein calories and grams of protein this provides: 1561 kcal + 93.6gm Qf=667; CO2=17. Initiating TPN with low Cl formula Pharmacy will continue to follow Pharmacist: DO HUSSEIN 03/02/2017 12:43 PM onversio n Transaction, Provider Unknown - 03/02/2017 11:58 AM PSTFormatting of this note might be di fferent from the original. Progress Notes by Honey Gamboa RD at 03/02/17 5365 Author: Honey Gamboa RD Service: (none) Author Type: Registered Dietitian Filed: 03/02/17 3217 Date of Service: 03/02/171157 Status: Signed Supervisor Coil Winding: Honey Gamboa RD (Registered Dietitian) 03/02/17 1135 Subjective Timepoint Admit (Consult: home TPN, wt loss) Pt c/o Pt with hx of Crohn's and chronic diarrhea. She states she has been on TPN for 3 we eks and she has not been eating. Pt currently feeling scared to eat, as she does not want i ncreased diarrhea. Diet Experience Home Nutrition Support TPN from [facility] in [place]: 275 g Dextrose, 90 g AA, 40 [...] Management by Linh Perez RN at 03/02/17 5722 Author: Linh Perez RN Service: (none) Author Type: Registered Nurse Filed: 03/02/17 1141 Date of Service: 03/02/17 1129 Status: Signed Supervisor Coil Winding: Linh Perez RN (Registered Nurse) 03/02/17 1100 [...] colostmy surgery on Tuesday. Pt lives in [place] with spouse. Pt is indep with all her ADL's. No use of home O 2, no HD. Pt does use a cane and walker as needed. Pt established on coumadin with [place] [facility]. Patient's PCP is: Dr Davina Cox/[facility]. Pt has appnt on 03/23 to est [...] Date of Service: 03/02/17 1037 Status: Signed Supervisor Coil Winding: Ryan Ariza RN (Registered Nurse) Infection Prevention [...] 03/01/172257 Date of Service: 03/01/172257 Status: Signed Supervisor Coil Winding: Hamilton Drummond RPH (Pharmacist) Note ccl 76.4ml/min meds reviewed pharmacy will follow rdc 2258 [address] roshan Transaction, Provider Unknown - 03/01/2017 10:35 PM PST Nurse Progress Note by Mila Dolan RN at 03/01/172234 Author: Mila Dolan RN Service: (none) Author Type: Registered Nurse Filed: 03/02/17 0625 Date of Service: 03/01/172234 Status: Addendum Supervisor Coil Winding: Mila Dolan RN (Registered Nurse) Related Notes: [...] | | | | performed at [facility];[address] | | | | | | [facility];[place], [place] | | | | | | [address] | | | | + + + [...] LAB | | | | performed at [facility], [address] | | | | | | [place], | | | | | | [place] [address] | | | | + + + [...] | | | | | [place] [address] | | | | + + + [...] EXTERNAL | | | | performed at [facility], [address] | | LAB | | | | [place], | | | | | | [place] [address] | | | | + + + [...] EXTERNAL | | | | performed at [facility], [address] | | LAB | | | | [place], | | | | | | [place] [address] | | | | + + + [...] Gertrude, | | | | | | [place] [address] | | | | + + + [...] | | | | | | [facility];[address] [place] [address] | | | | | | [facility];[place] [address] | | | | + + + [...]
--- OUTSIDE RECORDS SUMMARY | ~2019-03-09 | XMS | Encounter Summary ---
Demographics + + + | Address | [address] | | | [place] [address] | + + + | Home Phone [...] [place], [place] | | | | | [address] | | + + + + + | Cami Sawyer | ECON | Unknown | | + + + + + Care Team Providers + +------+ + | Care Residency Program Coordinator Name | Role | Phone | [...] Hospital | | | | | | [place], [place] | [place], [place] | | | | | | [address] | [address] | | | | | | Phone: | Phone: | | | | | | [phone] | [phone] | | | | | | Fax: | Fax: | | | | | | [phone] | [phone] | +--------+--------+ + + + + Diagnostic [...] | | | | | | | [place], [place] | | | | | | | [address] | | | | | | | Phone: | | | | | | | [phone] | | | | | | | Fax: | | | | | | | [phone] | +--------+--------+ + + + + Diagnostic [...] | | | | LOWER | Road [place], | [facility] | | | | | EXTREMITY | [place] [address] | Rd Mailcode: | | | | | BILAT | Phone: | [phone] | | | | | | [phone] | Physician's | | | | | | Fax: | Pavilion | | | | | | [phone] | [place], [place] | | | | | | | [address] | | | | | | | Phone: | | | | | | | [phone] | | | | | | | Fax: | | | | | | | [phone] | +--------+--------+ + + + + Diagnostic [...] | | | | | | | [place], [place] | | | | | | | [address] | | | | | | | Phone: | | | | | | | [phone] | | | | | | | Fax: | | | | | | | [phone] | +--------+--------+ + + + + Diagnostic [...] | | | Dariela Saab MD | [facility] [address] | | | | | TRANSTHORACI | | [address] | | | | | C | | [address] | | | | | ECHOCARDIOGR | | Mailcode: | | | | | AM, ADULT | | [id number] | | | | | | | Rome[address] | | | | | | | [facility] | | | | | | | [place], [place] | | | | | | | [address] | | | | | | | Phone: | | | | | | | [phone] | +--------+--------+ + + + + Diagnostic [...] ARTER DUPLEX | [address] | [facility] | | | | | [facility] | [facility], | [facility] | | | | | EXTREMITY | [place] [address] | Rd Mailcode: | | | | | BILATERAL | Phone: | [phone] | | | | | COMPLETE | [phone] | Physician's | | | | | | Fax: | Pavilion | | | | | | [phone] | [place], [place] | | | | | | | [address] | | | | | | | Phone: | | | | | | | [phone] | | | | | | | Fax: | | | | | | | [phone] | +--------+--------+ + + + + Diagnostic [...] | | | | DUPLEX | Road [place], | [facility] | | | | | COMPLETE | [place] [address] | Rd Mailcode: | | | | | BILATERAL | Phone: | [phone] | | | | | | [phone] | Physician's | | | | | | Fax: | Pavilion | | | | | | [phone] | [place], [place] | | | | | | | [address] | | | | | | | Phone: | | | | | | | [phone] | | | | | | | Fax: | | | | | | | [phone] | +--------+--------+ + + + + Diagnostic [...] | | | | | | | [place], [place] | | | | | | | [address] | | | | | | | Phone: | | | | | | | [phone] | | | | | | | Fax: | | | | | | | [phone] | +--------+--------+ + + + + Diagnostic [...] | | | | | | | [place], [place] | | | | | | | [address] | | | | | | | Phone: | | | | | | | [phone] | | | | | | | Fax: | | | | | | | [phone] | +--------+--------+ + + + + Reason [...] + + | 03/12/ | Hospital | [facility] [address] | [place], | | | 2011 - | Encounter | [address] | [address] | | | | | [facility] | [facility] [place] | | | 04/01/ | | [place], [place] | [address] | | | 2011 | | [address] | [phone] | | | | | [phone] | | | | | | | Chary Doherty, | | | | | | [address] | | | | | | [address] | | | | | | [place], [place] | | | | | | [address] | | | | | | [phone] | | | | | | | | | | | | Xin Rust | | | | | | MD Nena [address] [facility] | | | | | | [facility] | | | | | | [place], [place] | | | | | | [address] | | | | | | [phone] | | | | | | | | | | | | Osbaldo Garcia MD | | | | | | [address] [facility] | | | | | | [facility], | | | | | | [place] [address] | | | | | | [phone] | | | | | | | [...] thrombi: the patient was admitted to [facility] from [place] because she presented wit h nausea, bilious vomiting and was found by CT scan to have bowel wall thickening, 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 At arrival to [facility] it was learned that she did NOT indeed have ischemic colitis. 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 She underwent embolectomy on 03/17, which resulted in scientologist of flow and no loss of tissue [...] was agreed that the patient needed a exterminator helper termite treatment and we settled o n remicade. 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 Go to the hospital on Tuesday [...] Please call your GI doctor in [facility] to arrange for your second infusion [...] whether or not the INR is truly admitting representative of anticoagulation. In patients with APLA [...] I NR on Tuesday. KIRIT MD YOCASTA [facility] DEPARTMENT: [id number]- [facility] Faculty PPV Place of Service:- Inpatient Date of Service: 04/01/2012 CSN: [id number] Suggested Modifier: GC Resident Involved: Yes Suggested CPT: 56259- Dishcarge < 30 min Electronically signed by [...] questions. Debi Oconnor MD GI/Hepatology Fellow Pager: [phone] INTERVAL HISTORY: MRI abdomen shows no abscess; [...] risk of emboli, I called Dr. Rodriges (sales receptionist for her PCP) to coordinate f/u of [...] noted any additions above. KIRITYann RUST MD [facility] DEPARTMENT: [id number]- [facility] PPV Place of Service:- Inpatient Date of Service: 03/31/2012 CSN: [id number] Suggested Modifier: Resident Involved: Yes Suggested CPT: 70731- Subsequent, Detailed/high complex, 35 min Davonte De [...] state: J Gastroenterol. 2004 Jan;39(10):948-54. PubMed PMID: [id number]. Consulted [facility] for further studies on platelet inhibitor [...] no insurance. Wanting to go home for [employer]. Nurse repor ts that she has admitted [...] income that does not q ualify for PeopleString. F/E/N Thrombosis ppx: Warfarin, Lovenox bridge Glucose: not indicated Diet: regular Code: Do Not Resuscitate/Do Not Intubate This patient was seen with GM3, refer to Attending and Resident notes for assessment and pl an. Nuñez [place], Sub-Flour Mixer Pgr: [phone] Ajay De La Rosa MD - 03/30/2012 [...] bridge after d/c until coumading therapeutic with medicare nurse through medication assistance program Hypoalbuminemia (03/14/2012) Assessment: [...] noted any additions above. KIRIT MD YOCASTA [facility] DEPARTMENT: [id number]- [facility] PPV Place of Service:- Inpatient Date of Service: 03/30/2012 CSN: [id number] Suggested Modifier: Resident Involved: Yes Suggested CPT: 82006- Subsequent, Detailed/high complex, 35 min Debi Yepez [...] follow closely Shaun SAEED GI Fellow Pg [phone] signed by Debi Oconnor MD at 03/30/2012 5:32 PM PSTCrlamin, Jacoby Barrett MD - 03/30/2012 10:25 AM PSTFormatting of this note might be different from the origi nal. [facility] DEPARTMENT OF SURGERY Daily Progress Note PROGRESS NOTE: Attending Physician: Xin Rust MD 03/31/2012 Subjective/Overnight Events: - latest CT shows resolution of abscess - no GI bleeding - no rectal/anal pain - tolerating reg diet MEDICATIONS: Reviewed in [facility] VITAL SIGNS: Refer to [facility] Intake/Output Summary (Last 24 hours) at 03/31/12 [...] concerns. Jacoby Tovar MD Surgery, R2 Diagnoses: [id number] Crohn disease This assessment and plan was [...] y.o. 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 [...] state: J Gastroenterol. 2004 Jan;39(10):948-54. PubMed PMID: [id number]. Consulted Heme for further studies on platelet [...] this note might be different from the [facility]. Transfer Accept Note Patient: Mackenzie Hartley [...] Nathan Weeks MD Internal Medicine PGY1 Pager [phone] ecilia Toney MD - 03/29/2012 6:37 PM [...] team. Debi Oconnor MD GI Fellow Pager [phone] signed by Debi Oconnor MD at 03/29/2012 [...] planning) Debi Oconnor MD Fellow, Gastroenterology pager: [phone] signed by Debi Oconnor MD at 03/29/2012 [...] for this encounter. OSBALDO GARCIA MD [facility] [address] [place] [address] Andrew Shah MD - 10:41 AM PST [facility] DEPARTMENT OF SURGERY Daily Progress Note PROGRESS NOTE: Attending Physician: Osbaldo Garcia MD 03/29/2012 Subjective/Overnight Events: - bowel prep initiated - Hct stable - no hematochezia or hemetemesis - MEDICATIONS: Reviewed in [facility] VITAL SIGNS: Refer to [facility] Intake/Output Summary (Last 24 hours) at 03/29/12 [...] GI Jacoby Tovar MD Surgery, R2 Diagnoses: [id number] Crohn disease This assessment and plan was [...] provided conscious sedation. OSBALDO GARCIA MD [facility] [address] [place] [address] I spent 35 min in critical care (not including procedures) [facility] DEPARTMENT: MICU, [facility]- [id number] Place of Service: Date of Service: 03/29/2012 CSN: [id number] Modifiers:GC Resident Involved: yes Suggested CPT: 03450 Critical Care, Initial 30-74 minutes Carlton Godwin [...] day of transfer to MICU (1 05/29/11), [place] surgery informed us that according to the [...] 0659 03/29/12 07 - 03/30/12 0659 Shift 4609-8777 4663-2843 3750-9118 Daily Total 1052-6838 4366-8908 0890-1910 Daily Total I N T A K E P.O. 1750 2525 4275 I.V. 934 7209 001 7172 Shift Total 934 3740 3450 8124 O U T P U T Urine 1075 2950 1875 5900 Urine 1075 2950 1875 5900 Other 575 612 541 7043 Measured Stool Output 350 425 775 Stool/Urine Mix 575 575 Shift Total 1650 3300 2300 7250 NET -472 363 3384 874 Intake/Output Summary (since admission) at 03/12/12 1910 Last data filed at 03/29/12 0547 Gross for the last 17 days Intake 78078 ml Output 82295 ml Net since Admission -55439 ml Physical Exam: General Appearance: middle aged [...] Carlton Betancourt DO PGY-1 Internal Medicine Pager [phone] Debi Yepez MD - 03/11 4:31 PM [...] questions. Debi Oconnor MD GI/Hepatology Fellow Pager: [phone] INTERVAL HISTORY: Episode of melena last night [...] in the past. OSBALDO GARCIA MD [facility] [address] [address] I spent 35 min in critical care (not including procedures) [facility]- [id number] Place of Service: Date of Service: 03/28/2012 CSN: [id number] Modifiers:GC Resident Involved: yes Suggested CPT: 46785 Critical Care, Initial 30-74 minutes Carlton Godwin [...] 03/28/12 0659 03/28/12699 - 03/29/12 0659 Shift 4740-0083 5697-5647 2782-8491 Daily Total 4677-3804 7674-1932 6396-9982 Daily Total I N T A K E P.O. 240 300 540 I.V. 404 404 934 934 Blood 1300 1300 Shift Total 747 456 1940 2244 934 934 O U T P U T Urine 500 1200 1700 1075 1075 Urine 500 1200 1700 1075 1075 Other 575 575 Stool 1 1 2 Stool/Urine Mix 575 575 Shift Total 500 1200 1700 1650 1650 NET -260 300 504 544 -714 -716 Intake/Output Summary (since admission) at 03/12/12 1910 Last data filed at 03/28/12 1400 Gross for the last 16 days Intake 96848 ml Output 34900 ml Net since Admission -17656 ml Physical Exam: General Appearance: tearful middle [...] Carlton Betancourt DO PGY-1 Internal Medicine Pager [phone] Andrew Shah MD - 6:52 AM PST [...] Sukumar Zuniga DO Internal Medicine PGY-2 Pg [phone] Davonte De La Rosa MD - 03/27/2012 [...] noted any additions above. KIRIT MD YOCASTA [facility] DEPARTMENT: [id number]- [facility] PPV Place of Service:- Inpatient Date of Service: 03/27/2012 CSN: [id number] Suggested Modifier: GC Resident Involved: Yes Suggested CPT: 63339- Subsequent, Detailed/high complex, 35 min Marely Mccann [...] was discussed and formulated with gastroenterology at [facility], Dr. Hennessy. Please call with any questions. Debi Oconnor MD GI/Hepatology Fellow Pager: [phone] INTERVAL HISTORY: Imaging reviewed with radiology; too [...] Dung Victor - 2 11:30 AM PST LICENSED NUCLEAR CONTROL ROOM OPERATOR NOTE: Visited with Patient. 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 Business Computers Teacher team will follow as needed. Chaplain Dung Riley M.Div., [facility] [phone] Pager #[phone]; #[phone] Xin De La Rosa MD - 7:31 [...] J Gastroenterol. 2004 Jan;39(10):948-54. PubMed PMID: [id number]. Consulted Heme for further studies on platelet [...] an. ---- Joaquin Rivera, MS4 Pager # [phone] signed by Xin Rust MD at 03/27/2012 [...] noted any additions above. 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 Raphael Norman MD Internal Medicine, PGY-2 18980 Xin De La Rosa MD - 03/25/2012 [...] persists - not larger Resident spoke with resident care aid who spoke with staff - they did [...] taking more PO if still low ask product grader to see Hypophosphatemia (03/14/2012) Assessment: rechecked and [...] noted any additions above. KIRIT MD YOCASTA [facility] DEPARTMENT: [id number]- [facility] PPV Place of Service:- Inpatient Date of Service: 03/25/2012 CSN: [id number] Suggested Modifier: GC Resident Involved: Yes Suggested CPT: 01288- Subsequent, Detailed/high complex, 35 min oaquin Rivera [...] J Gastroenterol. 2004 Jan;39(10):948- 54. PubMed PMID: [id number]. Consulted Heme for further studies on platelet [...] income that does not qualif y for PeopleString F/E/N Thrombosis ppx: Warfarin Glucose: not indicated Diet: regular Code: Do Not Resuscitate/Do Not Intubate This patient was seen with GM3, refer to Attending and Resident notes for assessment and pl an. ---- Joaquin Rivera, MS4 Pager # [phone] Ajay De La Rosa MD - 03/24/2012 [...] drainage of abscess and coordination of care [facility] radiology reviewing perirectal abscess imaging, options for intervention and need for rep eat imagin, also with GI on plan. I personally interviewed the patient, performed the gunter elements of the physical examinatio n, and personally formulated the assessment and plan with the resident. I agree with the MS4 s documentation and have noted any additions above. KIRIT RUST MD [facility] DEPARTMENT: [id number]- [facility] PPV Place of Service:- Inpatient Date of Service: 03/24/2012 CSN: [id number] Suggested Modifier: GC Resident Involved: Yes Suggested CPT: 97319- Subsequent, Detailed/high complex, 35 min Davonte De [...] J Gastroenterol. 2004 Jan;39(10):948- 54. PubMed PMID: [id number]. Consulted Heme for further studies on platelet [...] an. ---- Joaquin Rivera MS4 Pager # [phone] Ajay De La Rosa MD - 03/23/2012 [...] noted any additions above. KIRITYann RUST MD [facility] DEPARTMENT: [id number]- [facility] PPV Place of Service:- Inpatient Date of Service: 03/23/2012 CSN: [id number] Suggested Modifier: AKHIL Resident Involved: Yes Suggested CPT: 18973- Subsequent, Detailed/high complex, 35 min Davonte De [...] to be done today JERI DIAZ MD [address] [facility] [address] [place] [address] Xin De La Rosa MD - 03/23/2012 [...] state: J Gastroenterol. 2004 Jan;39(10):948-54. PubMed PMID: [id number]. Consulted Heme for further studies on platelet [...] has income that does not qualify for PeopleString F/E/N Thrombosis ppx: Warfarin Glucose: not indicated Diet: regular Code: Do Not Resuscitate/Do Not Intubate This patient was seen with GM3, refer to Attending and Resident notes for assessment and pl an. ---- Joaquin Rivera, MS4 Pager # [phone] Ajay De La Rosa MD - 03/22/2012 10:50 PM [facility]3 Internal Medicine Attending Interval note [...] noted any additions above. KIRITYann RUST MD [facility] DEPARTMENT: [id number]- [facility] PPV Place of Service:- Inpatient Date of Service: 03/22/2012 CSN: [id number] Suggested Modifier: GC Resident Involved: Yes Suggested CPT: 84423- Subsequent, Detailed/high complex, 35 min ox, Jeri [...] duplex ordered today JERI DIAZ MD [facility] [address] [place] [address] Xin De La Rosa MD - 03/22/2012 [...] 03/20/12 202 1 NA -- 141 @ [facility] -- 142 139 K -- [...] PTT in mixing 1:1 Neg cardiolipin, neg mtah-K-zbptoucrkgpt Legionella Agg Urine pending Cultures: BLOOD CULTURE [...] barber: J Gastroenterol. 2004 Jan;39(10):948-54. PubMed PMID: [id number]. - Consult Heme for further studies on [...] an. ---- Joaquin Rivera, 4 Pager # [phone] Ajay De La Rosa MD - 03/21/2012 10:41 PM [facility]3 Internal Medicine Attending Interval note [...] 142/76 | Pulse 106[sinus tach per telephone operator chief[ | Temp 37.7 C (99.9 F) | [...] -- also coordination of care with pharmD. [facility] DEPARTMENT: [id number]- [facility] PPV Place of Service:- Inpatient Date of Service: 03/21/2012 CSN: [id number] Suggested Modifier: GC Resident Involved: Yes Suggested CPT: 96619- Subsequent, Detailed/high complex, 35 min Jennifer Tolentino [facility] - 03/21/2012 12:38 PM PST . [...] Female with multiple complex medical problems; [facility] Vascular Surge ry consulted due to [...] new baseline Ok to discharge per [facility] Vascular Surgeons once ambulating and medical issues are stable. Will continue to follow while in patient. [facility] Vascular Surgery Clinic, [facility] [address], phone number [phone] Please schedule followup appointment within 2-3 weeks of surgery for wound check. Dr. Sukumar Salgado, [facility] Vascular Surgery Attending. MERT OLIVA [facility] VASCULAR SURGERY [address] [place] [address] ham, Moses Asher MD - 03/21/2012 6:55 [...] w ill need to establish care with dietitian teacher so that further treatment options can be [...] assessment and plan. Moses Anthony MD Neurology Flour Mixer Pager [phone] oaquin Rivera - 02/2012 6:55 AM PST [...] an. ---- Joaquin Rivera, MS4 Pager # [phone] Xin De La Rosa M D - [...] noted any additions above. KIRIT MD YOCASTA [facility] DEPARTMENT: [id number]- [facility] PPV Place of Service:- Inpatient Date of Service: 03/20/2012 CSN: [id number] Suggested Modifier: Resident Involved: Yes Suggested CPT: 88714- Subsequent, Detailed/high complex, 35 min Jennifer Tolentino [facility] - 03/20/2012 3:36 PM PST . [...] Female with multiple complex medical problems; [facility] Vascular Surge ry consulted due to [...] chair as tolerated, RLE WBAT -Please obtain [facility] Arterial duplex ultrasound/DELORIS of both legs prior to discharge as n ew baselineObtain ABIs with waveforms To establish new blood-flow baseline Ok to discharge per [facility] Vascular Surgeons once ambulating and medical issues are stable. Will continue to follow while in patient. [facility] Vascular Surgery Clinic, [facility] [address], phone number [phone] Please schedule followup appointment within 2-3 weeks of surgery for wound check. Dr. Sukumar Salgado, [facility] Vascular Surgery Attending. MERT OLIVA [facility] VASCULAR SURGERY [address] [place] [phone] Raphael Osorio - 7:58 AM PSTI agree [...] plan. Raphael Norman MD Internal Medicine, PGY-2 40520 oaquin Rivera - 2011 7:58 AM PST [...] right IRA but likely due to recent rbice rgery, no myalgias, no constipation - Recheck [...] an. ---- Joaquin Rivera, MS4 Pager # [phone] Juma Pimentel MD - 12/2011 3:35 PM [...] pink, warm and dry. Minimal edema. site [facility] no FARRUKH, c/d/i. Pulse/signal exam: RLE [...] is Dr. Salgado. JUMA CARRINGTON MD [facility] [address] [place] [address] Chary Moore M D - 03/19/2012 9:14 [...] note from 03/14 for details. Therefore the uvwp-hmlu-kabjt plan givens s been to allow her [...] Lovenox bridge to be covered by [facility]. 9) Occlusive thrombus 10) Hypoalbuminemia 11) Hypophosphatemia 12) TIA (transient ischemic attack) - with PFO 13) PFO (patent foramen ovale) - plan is for lifelong coumadin. No additional benefit from device closure per CLOSURE I trial. Chary Doherty MD Chief Resident, Internal Medicine Pager: [phone] [facility] DEPARTMENT: Hosp- [phone] Place of Service: Date of Service: 03/19/2012 CSN: [id number] Modifiers:GC Resident Involved: Yes Suggested CPT: 56498 Subsequent Visit Detailed/High complexity 35 min I [...] will need to establish c are with dietitian teacher so that further treatment options can be [...] assessment and plan. Moses Anthony MD Neurology Flour Mixer Pager [phone] ose Antonio Toney MD - 03/18/2012 1:01 [...] outpt GI, plans to establish care in [place], perhaps Dr. Byrd. Transitioning to PO meds, [...] Doherty MD Chief Resident, Internal Medicine Pager: [phone] [facility] DEPARTMENT: Hosp- [phone] Place of Service: Date of Service: 03/18/2012 CSN: [id number] Modifiers: Resident Involved: Yes Suggested CPT: 95159 Subsequent Visit Exp Prob Foc/Mod Complexity 25 [...] Date 03/18/12 07 - 03/19/12 0659 Shift 5602-8516 9584-8773 7496-2063 24 Hour Total I N T A K E P.O. 620 620 I.V. 20 20 40 Shift Total 640 20 660 O U T P U T Urine 675 100 775 Other 400 400 Shift Total 792 971 1612 Weight (kg) 74.1 74.1 74.1 74.1 General: [...] refusing). Will need to establish care with dietitian teacher so that further treatment options can be [...] in MS4 note. Moses Anthony MD Neurology Flour Mixer Pager [phone] signed by Moses Asher MD at 03/18/2012 9:50 PM [facility] - 03/18/2012 9:18 AM [...] for assessment and pl an. ---- Joaquin [place], MS4 Pager # [phone] Chary Moore MD - 03/17/2012 8:39 PM [...] refusing). Will need to establish care with dietitian teacher so this can be discussed as outpt [...] Doherty MD Chief Resident, Internal Medicine Pager: [phone] [facility] DEPARTMENT: Hosp- [phone] Place of Service: IP - Date of Service: 03/17/2012 CSN: [id number] Modifiers:GC Resident Involved: Yes Suggested CPT: 49187 Subsequent Visit Detailed/High complexity 35 min I [...] end of case. MIRELA SALGADO MD [facility] [address] [address] [place] [id number] ham, Gloria Lawson MD - 1 05/18/2011 [...] therapeutic with her coumadin and [facility] has agreed to provide discounted INR [...] y Gloria Anthony MD Neurology PGY1 Pager: [phone] Joaquin Hui - 10/2011 7:19 AM PST [...] an. ---- Joaquin Rivera, MS4 Pager # [phone] Chary Moore MD - 03/16/2012 12:56 PM [...] Doherty MD Chief Resident, Internal Medicine Pager: [phone] [facility] DEPARTMENT: Hosp- [phone] Place of Service: - Date of Service: 03/16/2012 CSN: [id number] Modifiers:GC Resident Involved: Yes Suggested CPT: [id number] Subsequent Visit Exp Prob Foc/Mod Complexity 25 min and 46816 Subseque nt Visit Detailed/High complexity 35 min [...] DNR/DNI Gloria Anthony MD Neurology PGY-1 Pager [phone] The patient was seen and discussed with the attending of record, Chary Doherty MD, who agrees with my assessment and plan. IGARimunir, Chary Ferrer MD - 03/15/2012 9:30 PM [...] Doherty MD Chief Resident, Internal Medicine Pager: [phone] [facility] DEPARTMENT: Hosp- [id number] Place of Service: - Date of Service: 03/15/2012 CSN: [id number] Modifiers:GC Resident Involved: Yes Suggested CPT: 44899 Subsequent Visit Detailed/High complexity 35 min Dariela [...] plan. Dariela Santoyo MD Internal Medicine PGY-3 [id number] Daryl Singleton MD - 08/2011 7:18 PM PSTHematology Attending Consult Note: I saw and examined Ms. Hartley with the Hematology Fellow, Dr. Anthony Camejo and Ana Parish the 5A Medicine unit. I participated in the gunter components of today's [facility] pital visit including review of the [...] re Daryl Arteaga MD, PhD Hematology Oncology [facility] DEPARTMENT: [id number] HEM [facility]AC[facility]Y [facility] Place of Service: - Inpatient Date of Service: 03/15/2012 Modifiers: GC - Resident Involved Suggested CPT: 68121 - Subsequent, Detailed/High complex 35 min raAnthony [...] clinic f/u closely; our clinic at [facility] cannot provide any suppli es -anticoagulation [...] as above. MD Hematology/Oncology Fellow Pager # [phone] signed by Daryl Arteaga MD at 03/15/2012 [...] with any questions. Bigg Robles, R1 Pager: [phone] INTERVAL HISTORY: - NAEO - VSS, AF [...] to pro ceed. Mirela Samano M.D. [facility] Vascular Surgery [address] [place] [address], [place] [phone] Email: [email or web address] Sandoval Ko MD - 03/15/2012 9:30 [...] off to day. Jacoby Tovar MD Surgery [id number] signed by Sandoval Tovar MD at 03/15/2012 [...] monitor Gloria Anthony MD Neurology PGY1 Pager [phone] Daryl Singleton MD - 07/2011 4:57 PM PSTHematology Attending Consult Note: I saw and examined Ms. Hartley with the Hematology Fellow, Dr. Anthony Camejo in the [address] [place] [address] unit. I participated in the gunter components [...] re Daryl Arteaga MD, PhD Hematology Oncology [facility] DEPARTMENT: [id number]- HEM FACULTY [facility] Place of Service: - Inpatient Date of Service: 03/14/2012 Modifiers: GC - Resident Involved Suggested CPT: 21551 - Subsequent, Detailed/High complex 35 min Anthony [...] as above. MD Hematology/Oncology Fellow Pager # [phone] signed by Daryl Arteaga MD at 03/14/2012 [...] really for treatment Recommendations communicated with [employer] controller. We will continue to follow. This plan was discussed and formulated with gastroenterology at [facility], Dr. Casiano. Please call with any questions. Bigg Robles, R1 Pager: [phone] Attending Attestation: I personally interviewed the patient, performed the relevant elements of the physical exami [facility], and formulated the assessment and [...] She may follow-up wit h her local dietitian teacher or may follow up with me at [facility] if she wishes to consider di fferent evaluation or treatment. Gopal Casiano MD Rcpcement sack breaker Department of Gastroenterology INTERVAL HISTORY: - NAEO [...] Reviewed outside imaging with radiologist at [facility] and CT abd and pelvis shows [...] Becca Moncada MD General Surgery, R2 Pager: [phone] [facility] Staff I saw [...] at this point. Mirela Samano M.D. [facility] Vascular Surgery [address] [place] [address], [address] [phone] Email: [email or web address] Irene Aguilera MD - 03/14/2012 3:52 [...] remained hemodynamically stable. Transferre d to [facility] for possible thrombectomy, initiated heparin therapy, [...] were obscured by overlying bowel gas. The ami-vu-cboiyw left external iliac arteries appear patent with [...] transient arterial occlusion. Reported CT findings at are also concerning for diffuse intra-abdominal arterial [...] CARLOS A EPPS MD R2, General Surgery [facility] 03/13/2012 1:20 PM Current Facility-Administered Medications [...] Becca Moncada MD General Surgery, R2 Pager: [phone] Vascular Staff I saw and evaluated the [...] a later time. Mirela Samano M.D. [facility] Vascular Surgery [address] [place] [address], [address] [phone] Email: [email or web address] Richie Goodman MD - 06/2011 11:15 AM PSTI was present and rounded with the SPINDLE CARVER today. I interviewed and examined the patient. I reviewed the history, as documented today. I agree with the SPINDLE CARVER's assessmen t and plan. Pt is stable [...] 75 Morphine IV PRN zofran PRN Labs: [facility] reviewed Significant Results K 3.3 Mg 2.8 [...] visceral and aortic thrombus transfer red from [place] last night with concerns for ischemic bowel. [...] celiac arteries who was transferred to [facility] for management o f vascular disease and possible bowel ischemia. No evidence of bowel ischemia, bowel thicken ing likely Crohn's flare. 1. Crohn's flare: GI consult. Consider transfer to medicine for crohn's management with [facility] following 2. Multivessel occlusions/thrombii: vascular surgery [...] Her abdominal exam does not reveal peritonitis. [facility] ular surgery recommended [...] general medicine service. Jf Wiseman MD FACS casing splitter Division of Trauma, Critical Care, and Acute Care Surgery [id number] documented in this e ncounter Plan of [...] [facility] | [address] | [place] [address] | | | SERVICES, CORE | PARK [...] [facility] | [address] | [place] [address] | | | SERVICES, CORE | PARK [...] + + + + + | [facility] | [address] | [place] [address] | | | ARON, CORE | [address] | | | + + + + + MAGNESIUM, PLASMA (03/31/2012 3:58 AM PST) + +-------+ + + + | Component | Value | Ref Range | Performed | Pathologist | | | | | At | Signature | + +-------+ + + + | MAGNESIUM,P | 1.9 | 1.8 - 2.5 mg/dL | [facility] | | | [facility] | | | [...] + + + + + | [facility] | [address] | [place] [address] | | | SERVICES, CORE | PARK [...] + + | [facility] | [address] | [place] [address] | | | SERVICES, JANELL | PARK [...] | + +---------+ + + | [facility] DEPARTMENT OF | | | | [...] [facility] | [address] | [place] [address] | | | SERVICES, CORE | PARK [...] [facility] | [address] | [place] [address] | | | SERVICES, CORE | PARK [...] [facility] | [address] | [place] [address] | | | SERVICES, CORE | PARK [...] + + + + + | [facility] | [address] | [place] [address] | | | SERVICES, CORE | PARK [...] | + + + + + | [facility] | [address] | [place] [address] | | | SERVICES, CORE | PARK [...] | + + + + + | [facility] | [address] | [place] [address] | | | SERVICES, CORE | KRISTEN [...] [facility] | [address] | [place] [address] | | | SERVICES, CORE | KRISTEN [...] [facility] | [address] | [place] [address] | | | SERVICESJANELL | [address] [...] + | [facility] | [address] | [place] [address] | | | [place] | | | [...] + | [facility] | [address] | [place] [address] | | | [place] | | | [...] + | [facility] | [address] | [place] [address] | | | [place] | | | [...] | + + + + + | [facility] | [address] | [place] [address] | | | SERVICES, CORE | PARK [...] [facility] | [address] | [place] [address] | | | SERVICES, CORE | KRISTEN [...] + + + + + | [facility] | [address] | [place] [address] | | | SERVICES, CORE | KRISTEN [...] [facility] | [address] | [place] [address] | | | SERVICES, CORE | KRISTEN [...] | + + + + + | [facility] | [address] | [place] [address] | | | PATHOLOGY | [address] [...] [facility] | [address] | [place] [address] | | | SERVICES, JANELL | KRISTEN [...] | + + + + + | [facility] | [address] [facility] | [place] [address] | | | SERVICES, CORE | KRISTEN [...] [facility] | [address] | [place], [place] | | | [facility] | [address] | [address] | | | TESTS | | | [...] [facility] | [address] | [place] [address] | | | SERVICES, CORE | PARK [...] [facility] | [address] | [place] [address] | | | SERVICES, CORE | PARK [...] | + + + + + | [facility] | [address] | [place] [address] | | | SERVICES, CORE | KRISTEN [...] [facility] | [address] | [place], [place] | | | [facility] | [address] | [address] | | | TESTS | | | [...] [facility] | [address] | [place] [address] | | | SERVICES, CORE | KRISTEN [...] LABORATORY | [address] | [place] [address] | | | SERVICES, CORE | KRISTEN [...] | [address] [facility] | [place] [address] | | | SERVICES, CORE | PARK [...] [facility] | [address] | [place] [address] | | | SERVICES, JANELL | KRISTEN [...] + + + + | PRODUCT | [id number] | | [facility] | | | UNIT [...] + + + + | BLOOD | 92263 | | [facility] | | | PRODUCT [...] | + + + + + | [facility] | [address] | [place] [address] | | | PATHOLOGY | [address] [...] + + + + | PRODUCT | [id number] | | [facility] | | | UNIT [...] + + + + | BLOOD | 75909 | | [facility] | | | PRODUCT [...] DEPARTMENT OF | [address] | [place] [address] | | | PATHOLOGY | [address] [...] | 60 - 99 mg/dL | [facility] - | | | GLUCOSE, | [...] + + + | [facility] | [address] | [place], [place] | | | [facility] | [address] | [address] | | | TESTS | | | [...] [facility] | [address] | [place] [address] | | | SERVICES, CORE | KRISTEN [...] view image for the detailed interpretation from [email or web address] results. | CARDIOLOGY | + + + + + + + + | Performing | Address | City/State/Zipcode | Phone Number | | Organization | | | | + + + + + | [facility] | [address] | [place], [place] | | | CARDIOLOGY | [address] | [address] | | + + + + + [...] | + + + + + | [facility] | [address] | [place] [address] | | | SERVICES, CORE | KRISTEN [...] + + + + | PRODUCT | [id number] | | [facility] | | | UNIT [...] + + + + | BLOOD | 40689 | | [facility] | | | PRODUCT [...] DEPARTMENT OF | [address] | [place] [address] | | | PATHOLOGY | [address] [...] + + + + | PRODUCT | [id number] | | [facility] | | | UNIT [...] + + + + | BLOOD | 96592 | | [facility] | | | PRODUCT [...] + + + + + | [facility] DE[facility] | [address] | [place] [address] | | | PATHOLOGY | [address] [...] | + + + + + | [facility] | [address] | [place] [address] | | | SERVICES, JANELL | KRISTEN [...] [facility] | [address] | [place] [address] | | | SERVICES, CORE | PARK [...] + + + + + | [facility] | [address] | [place] [address] | | | SERVICES, CORE | PARK [...] [facility] | [address] | [place] [address] | | | SERVICES, CORE | PARK [...] [facility] | [address] | [place] [address] | | | SERVICES, | [address] [...] + + + + + | [facility] | [address] | [place] [address] | | | SERVICES, | [address] [...] + + + + | PRODUCT | [id number] | | [facility] | | | UNIT [...] + + + + | BLOOD | 64654 | | [facility] | | | PRODUCT [...] + + + + + | [facility] DEPARTMENT OF | [address] | [place] [address] | | | PATHOLOGY | [address] [...] + + + + | PRODUCT | [id number] | | [facility] | | | UNIT [...] + + + + | BLOOD | 67494 | | [facility] | | | PRODUCT [...] + + + + + | [facility] DEPARTMENT | [address] | [place] [address] | | | PATHOLOGY | [address] [...] | + + + + + | [facility] | [address] | [place] [address] | | | SERVICES, CORE | KRISTEN [...] | + + + + + | [facility] | [address] | [place] [address] | | | SERVICES, CORE | KRISTEN [...] [facility] | [address] | [place] [address] | | | SERVICES, CORE | PARK [...] + + + + + | [facility] | [address] | [place] [address] | | | JANELL SHARP | KRISTEN [...] | [address] [facility] | [place] [address] | | | SERVICES, CORE | KRISTEN [...] [facility] | [address] | [place] [address] | | | SERVICES, CORE | PARK [...] | + + + + + | [facility] | [address] | [place] [address] | | | SERVICES, CORE | KRISTEN [...] | + + + + + | [facility] | [address] | [place] [address] | | | SERVICES, CORE | KRISTEN [...] [facility] | [address] | [place] [address] | | | SERVICES, CORE | PARK [...] [facility] | [address] | [place] [address] | | | SERVICES, CORE | PARK [...] + + + + + | [facility] | [address] | [place] [address] | | | SERVICES, CORE | KRISTEN [...] | + + + + + | [facility] | [address] | [place] [address] | | | SERVICES, CORE | KRISTEN [...] + + + + + | [facility] | [address] [facility] | [place] [address] | | | SERVICES, CORE | KRISTEN [...] + + + + + | [facility] | [address] | [place] [address] | | | SERVICES, CORE | PARK [...] | + + + + + | [facility] | [address] | [place] [address] | | | SERVICES, CORE | KRISTEN [...] oral, | | | | | | [id number] hrs | | | | | | [...] | + + + + + | [facility] | [address] | [place] [address] | | | SERVICES, CORE | PARK [...] | + + + + + | [facility] | [address] | [place] [address] | | | SERVICES, CORE | KRISTEN [...] | + + + + + | [facility] | [address] | [place] [address] | | | JANELL SHARP | [address] [...] + + + + + | [facility] | [address] [facility] | [place] [address] | | | SERVICES, CORE | KRISTEN [...] + + + + + | [facility] | [address] | [place] [address] | | | SERVICES, CORE | KRISTEN [...] | | | | Final | | [place] | | | | CULTURE RESULT:< 10,000 [...] + | [facility] - | [address] | [place] [address] | | | [place] | | | | + + + [...] | + + + + + | [facility] | [address] | [place] [address] | | | SERVICES, CORE | KRISTEN [...] [facility] | [address] | [place] [address] | | | SERVICES, CORE | PARK [...] + + + + + | [facility] | [address] | [place] [address] | | | SERVICES, CORE | [address] | | | + + + + + CULTURE, BLOOD BACTI & YEAST [facility] (03/23/2012 11:22 PM PST) + + [...] | + + + + + | [facility] | [address] | [place] [address] | | | SERVICES, CORE | KRISTEN [...] view image for the detailed interpretation from [email or web address] results. | CARDIOLOGY | + + + + + + + + | Performing | Address | City/State/Zipcode | Phone Number | | Organization | | | | + + + + + | [facility] | [address] | [place], [place] | | | CARDIOLOGY | [address] | [address] | | + + + + + [...] | + +---------+ + + | [facility] DEPARTMENT OF | | | | [...] | + + + + + | [facility] | [address] | [place] [address] | | | SERVICES, CORE | PARK [...] [facility] | [address] | [place] [address] | | | SERVICES, CORE | PARK [...] + + + + + | [facility] | [address] | [place] [address] | | | SERVICES, JANELL | KRISTEN [...] | + + + + + | [facility] | [address] [facility] | [place] [address] | | | SERVICES, CORE | PARK [...] [facility] | | | | | | [facility],[address] [place] [address] | | | | | | [facility], [place] [address] | | | | | | [phone]. | | | | | | keith, Kaitlin Lau, | | | | | | , Lab. Director | | | | + + + + + + + + | Specimen | + + | Urine - Urine | + + + + + + + | Performing | Address | City/State/[facility]code | Phone Number | | Organization | | | | + + + + + | [facility] | [address] | [place], [place] | | | [facility] | | [address] | | + + + + + [...] | + + + + + | [facility] | [address] | [place] [address] | | | SERVICES, CORE | KRISTEN [...] [facility] | [address] | [place] [address] | | | ARON, JANELL | KRISTEN [...] | + + + + + | [facility] | [address] | [place] [address] | | | SERVICES, JANELL | KRISTEN [...] | | | | | XIN GARZON ([id number]) | | | | | | on 03/22/2012 4:25:06 PM | | | | + + + + + + + + | Specimen | + + | | + + + + + | Narrative | Performed At | + + + | Please click | [facility] | | on view image for the detailed interpretation from [email or web address] results. | CARDIOLOGY | + + + + + + + + | Performing | Address | City/State/Zipcode | Phone Number | | Organization | | | | + + + + + | [facility] | [address] [facility] | [place], [place] | | | CARDIOLOGY | [address] | [address] | | + + + + + [...] [facility] | [address] | [place], [place] | | | [facility] | [address] | [address] | | | TESTS | | | [...] | 60 - 99 mg/dL | [facility] - | | | GLUCOSE, | [...] [facility] | [address] | [place], [place] | | | [facility] | [address] | [address] | | | TESTS | | | [...] + + + + + | [facility] | [address] [facility] | [place] [address] | | | SERVICES, CORE | KRISTEN [...] + + + + + | [facility] | [address] | [place] [address] | | | JANELL SHARP | [address] [...] + + + + + | [facility] | [address] [facility] | [place] [address] | | | SERVICES, JANELL | KRISTEN [...] [facility] | [address] | [place] [address] | | | SERVICES, CORE | PARK [...] | + + + + + | [facility] | [address] | [place] [address] | | | SERVICES, CORE | KRISTEN [...] [facility] | [address] | [place], [place] | | | [facility] | [address] | [address] | | | TESTS | | | [...] | + + + + + | [facility] | [address] | [place] [address] | | | SERVICES, CORE | KRISTEN [...] [facility] | [address] | [place], [place] | | | [facility] | [address] | [address] | | | TESTS | | | [...] view image for the detailed interpretation from [email or web address] results. | CARDIOLOGY | + + + + + + + + | Performing | Address | City/State/Zipcode | Phone Number | | Organization | | | | + + + + + | [facility] | [address] | [place], [place] | | | CARDIOLOGY | [address] | [address] | | + + + + + [...] [facility] | [address] | [place], [place] | | | [facility] | [address] | [address] | | | TESTS | | | [...] [facility] | [address] | [place] [address] | | | JANELL SHARP | KRISTEN [...] [facility] | [address] | [place] [address] | | | SERVICES, CORE | PARK [...] + + + + + | [facility] | [address] [facility] | [place] [address] | | | SERVICES, CORE | KRISTEN [...] + + + + + | [facility] | [address] | [place] [address] | | | SERVICESJANELL | [address] [...] | + + + + + | [facility] | [address] | [place] [address] | | | SERVICES, CORE | [address] | | | + + + + + 12 LEAD ECG (03/21/2012 1:28 AM PST) + + + + + + | Component | Value | Ref Range | Performed | Pathologist | | | | | At | Signature | + + + + + + | VENTRICULAR | 107 | BPM | [facility] | | | RATE | | [...] GARCIA | | | | | | ([id number]) on 03/22/2012 | | | | | | 12:47:28 PM | | | | + + + + + + + + | Specimen | + + | | + + + + + | Narrative | Performed At | + + + | Please click | [facility] | | on view image for the detailed interpretation from [email or web address] results. | CARDIOLOGY | + + + + + + + + | Performing | Address | City/State/Zipcode | Phone Number | | Organization | | | | + + + + + | [facility] | [address] | [place], [place] | | | CARDIOLOGY | [address] | [address] | | + + + + + [...] | + +---------+ + + | [facility] DEPARTMENT OF | | | | [...] [facility] | [address] | [place] [address] | | | SERVICES, CORE | [address] [...] + + + + + | [facility] | [address] | [place] [address] | | | SERVICES, CORE | KRISTEN [...] [facility] | [address] | [place], [place] | | | [facility] | [address] | [address] | | | TESTS | | | [...] + + + | Please click | [facility] | | on view image for the detailed interpretation from [email or web address] results. | CARDIOLOGY | + + + + + + + + | Performing | Address | City/State/Zipcode | Phone Number | | Organization | | | | + + + + + | [facility] | [address] | [place], [place] | | | CARDIOLOGY | [address] | [address] | | + + + + + [...] [facility] | [address] | [place], [place] | | | [facility] | [facility] | [address] | | | TESTS | | | [...] | 60 - 99 mg/dL | [facility] - | | | GLUCOSE, | [...] [facility] | [address] | [place], [place] | | | [facility] | [address] | [address] | | | TESTS | | | [...] | + +---------+ + + | [facility] DEPARTMENT OF | | | | [...] [facility] | [address] | [place] [address] | | | ARON, JANELL | KRISTEN [...] + + + + + | [facility] | [address] | [place] [address] | | | SERVICES, CORE | KRISTEN [...] | 0.90 - 1.20 INR | [facility] | | | | | | [...] [facility] | [address] | [place] [address] | | | SERVICES, CORE | [address] [...] | + + + + + | [facility] | [address] | [place] [address] | | | SERVICES, CORE | KRISTEN [...] [facility] | [address] | [place], [place] | | | [facility] | [address] | [address] | | | TESTS | | | [...] [facility] | [address] | [place], [place] | | | [place] [facility] | [address] | [address] | | | TESTS | | | [...] + + + + + | [facility] | [address] | [place] [address] | | | SERVICES, JANELL | KRISTEN [...] + + + + + | [facility] | [address] | [place] [address] | | | SERVICES, CORE | KRISTEN [...] SANDERS | [address] | [place], [place] | | | [facility] | [address] | [address] | | | TESTS | | | [...] + + + | Please click | [facility] | | on view image for the detailed interpretation from [email or web address] results. | CARDIOLOGY | + + + + + + + + | Performing | Address | City/State/Zipcode | Phone Number | | Organization | | | | + + + + + | [facility] | [address] | [place], [place] | | | CARDIOLOGY | [address] | [address] | | + + + + + [...] - [facility] | [address] | [place], [place] | | | [facility] | [address] | [address] | | | TESTS | | | [...] SAND[facility] | [address] | [place], [place] | | | [facility] | [address] | [address] | | | TESTS | | | [...] + + + + + | [facility] | [address] | [place] [address] | | | SERVICES, CORE | KRISTEN [...] | + + + + + | [facility] | [address] | [place] [address] | | | SERVICES, CORE | PARK [...] | + + + + + | [facility] | [address] | [place] [address] | | | SERVICES, CORE | KRISTEN [...] + + | [facility] | [address] [facility] | [place] [address] | | | JANELL SHARP | KRISTEN [...] | | | | Final | | [place] | | | | CULTURE RESULT:No growth [...] + | [facility] | [address] | [place] [address] | | | [place] | | | | + + + [...] [facility] | [address] | [place] [address] | | | SERVICES, CORE | PARK [...] [facility] | [address] [address] | [place] [address] | | | SERVICES, CORE | [address] [...] [facility] | [address] | [place] [address] | | | SERVICES, CORE | [address] | | | + + + + + CULTURE, BLOOD BACTI & YEAST [facility] (03/19/2012 1:10 AM PST) + + [...] | + + + + + | [facility] | [address] | [place] [address] | | | SERVICES, CORE | KRISTEN [...] + + + + + | [facility] | [address] | [place] [address] | | | SERVICES, CORE | PARK [...] | 60 - 99 mg/dL | [facility] - | | | GLUCOSE, | [...] [facility] | [address] | [place], [place] | | | [facility] CARE | [address] | [address] | | | TESTS | | | [...] + + + + + | [facility] [employer] | [address] | [place] [address] | | | ARON, CORE | KRISTEN [...] [facility] | [address] | [place], [place] | | | [facility] | [facility] | [address] | | | TESTS | | | [...] LABORATORY | [address] | [place] [address] | | | SERVICES, CORE | PARK [...] | + + + + + | [facility] [employer] [facility] | [address] [facility] | [place] [address] | | | SERVICES, CORE | KRISTEN [...] [facility] | [address] | [place], [place] | | | [facility] | [address] | [address] | | | TESTS | | | | + + + + + OPERATION RECORD (03/18/2012 11:22 AM PST) + + | Transcriptions | + + | Mirela Salgado MD - 03/18/2012 8:38 AM [facility] Date: 03/17/2012ttending | | Surgeon: Mirela Salgado M.D.Coating Machine Helper(s): Sandoval | | Bennett Galvez M.D.Preoperative Diagnosis(es):Embolus, [...] procedure well.MIRELA SALGADO, [facility] Hospitalessor of SurgeryBLOW[facility] / [id number] / | | [id number] / [id number] / T: 03/17/2012 | |was no pulse. [...] | | | |MIRELA SALGADO MD | |analytical clerk | | | |GLM / HS | |[id number] / [id number] / [id number] / | | | | | + [...] [facility] | [address] | [place] [address] | | | SERVICES, CORE | KRISTEN [...] [facility] | [address] | [place] [address] | | | SERVICES, CORE | PARK [...] | + + + + + | [facility] | [address] | [place] [address] | | | SERVICES, CORE | KRISTEN [...] | + + + + + | [facility] | [address] | [place] [address] | | | SERVICES, CORE | KRISTEN [...] | + + + + + | [facility] | [address] | [place] [address] | | | SERVICES, CORE | KRISTEN [...] | + + + + + | [facility] | [address] | [place] [address] | | | SERVICES, CORE | KRISTEN [...] + + | [facility] | [address] [facility] | [place] [address] | | | JANELL SHARP | KRISTEN [...] [facility] | [address] | [place], [place] | | | [facility] | [facility] | [address] | | | TESTS | | | [...] [facility] | [address] | [place], [place] | | | [facility] | [facility] | [address] | | | TESTS | | | [...] [facility] | [address] | [place], [place] | | | [facility] [place] | [address] | [address] | | | TESTS | | | [...] | + + + + + | [facility] | [address] [facility] | [place] [address] | | | ARON, JANELL | KRISTEN [...] + + + + + | [facility] [employer] | [address] | [place] [address] | | | ARON, JANELL | KRISTEN [...] + + + + + | [facility] | [address] | [place] [address] | | | SERVICES, JANELL | KRISTEN [...] + + + + + | [facility] | [address] | [place] [address] | | | SERVICES, CORE | KRISTEN [...] | 60 - 99 mg/dL | [facility] - | | | GLUCOSE, | [...] [facility] | [address] | [place], [place] | | | [facility] | [address] | [address] | | | TESTS | | | [...] [facility] | [address] | [place] [address] | | | SERVICES, | [address] [...] [facility] | [address] | [place] [address] | | | SERVICES, | [address] [...] + + + + + | [facility] | [address] | [place] [address] | | | SERVICES, CORE | KRISTEN [...] (H) | 60 - 99 mg/dL | [facility] | | | GLUCOSE, | | | [facility] | | | POC | | | [facility] | | | | | | OF CARE | | | | | | TESTS | | + +---------+ + + + + + | Specimen | + + | | + + + + + + + | Performing | Address | City/State/[facility]code | Phone Number | | Organization | | | | + + + + + | [facility] | [address] | [place], [place] | | | [facility] [place] | [address] | [address] | | | TESTS | | | [...] | + +---------+ + + | [facility] DEPARTMENT OF | | | | [...] | 60 - 99 mg/dL | [facility] - | | | GLUCOSE, | [...] [facility] | [address] | [place], [place] | | | [facility] | [address] | [address] | | | TESTS | | | [...] [facility] | [address] | [place], [place] | | | [facility] [place] | [address] | [address] | | | TESTS | | | [...] + + + + + | [facility] | [address] | [place] [address] | | | SERVICES, CORE | KRISTEN [...] [facility] | [address] | [place], [place] | | | [facility] | [address] | [address] | | | TESTS | | | [...] [facility] | [address] | [place] [address] | | | SERVICES, CORE [...] + + + + + | [facility] | [address] | [place] [address] | | | SERVICES, CORE | PARK [...] [facility] | [address] | [place] [address] | | | SERVICES, CORE | PARK [...] [facility] | [address] | [place] [address] | | | SERVICES, CORE | PARK [...] - [facility] | [address] | [place], [place] | | | [facility] | [facility] | [address] | | | TESTS | | | [...] | 60 - 99 mg/dL | [facility] - | | | GLUCOSE, | [...] + + + | [facility] | [address] | [place], [place] | | | [facility] | [address] | [address] | | | TESTS | | | [...] | + +---------+ + + | [facility] DEPARTMENT OF | | | | [...] Kirstie | | | | | | [place] | | | | + + + [...] [facility] | [address] | [place], [place] | | | [facility] | [address] | [address] | | | TESTS | | | [...] [facility] | [address] | [place], [place] | | | [facility] [place] | [facility] | [address] | | | TESTS | | | [...] + + | Performing | Address | City/State/[facility]code | Phone Number | | Organization | | | | + + + + + | [facility] | [address] | [place] [address] | | | SPECIAL ARON | KRISTEN [...] [facility] | [address] | [place] [address] | | | SERVICES, SPECIAL | PARK [...] | + + + + + | [facility] | [address] | [place] [address] | | | SERVICES, SPECIAL | KRISTEN [...] | + + + + + | [facility] | [address] | [place] [address] | | | SERVICES, SPECIAL | PARK [...] | + + + + + | [facility] | [address] | [place] [address] | | | SERVICES, CORE | KRISTEN [...] | + + + + + | [facility] | [address] | [place] [address] | | | ARON, JANELL | KRISTEN [...] [facility] | [address] | [place] [address] | | | SERVICES, CORE | PARK [...] + + + + + | [facility] [employer] | [address] [facility] | [place] [address] | | | ARON, JANELL | KRISTEN [...] [facility] | [address] | [place], [place] | | | [facility] | [facility] | [address] | | | TESTS | | | [...] + + + + + | [facility] | [address] | [place] [address] | | | SERVICES, CORE | PARK [...] [facility] | [address] | [place], [place] | | | [facility] | [address] | [address] | | | TESTS | | | [...] | 60 - 99 mg/dL | [facility] - | | | GLUCOSE, | [...] + + + | [facility] | [address] | [place], [place] | | | [facility] | [address] | [address] | | | TESTS | | | [...] [facility] | [address] | [place], [place] | | | [facility] | [address] | [address] | | | TESTS | | | [...] + + + + | PRODUCT | [id number] | | [facility] | | | UNIT [...] + + + + | BLOOD | 40608 | | [facility] | | | PRODUCT [...] + + + + + | [facility] DEPARTMENT OF | [address] | [place] [address] | | | PATHOLOGY | [address] [...] + + + + | PRODUCT | [id number] | | [facility] | | | UNIT [...] + + + + | BLOOD | 49423 | | [facility] | | | PRODUCT [...] [facility] | [address] | [place] [address] | | | PATHOLOGY | [address] [...] + + + + + | [facility] | [address] | [place] [address] | | | SERVICES, CORE | KRISTEN [...] | 60 - 99 mg/dL | [facility] - | | | GLUCOSE, | [...] + + + | [facility] | [address] | [place], [place] | | | [facility] | [address] | [address] | | | TESTS | | | [...] [facility] | [address] | [place], [place] | | | [facility] | [address] | [address] | | | TESTS | | | [...] | + + + + + | [facility] | [address] | [place] [address] | | | SERVICES, CORE | PARK [...] | + + + + + | [facility] | [address] | [place] [address] | | | SERVICES, CORE | PARK [...] | + + + + + | [facility] | [address] | [place] [address] | | | SERVICES, CORE | KRISTEN [...] if | | | | | | [id number] >400: | | | | | | [...] + | [facility] | [address] | [place] [address] | | | [place] | | | [...] | + + + + + | [facility] | [address] | [place] [address] | | | SERVICES, CORE | PARK [...] [facility] | [address] | [place] [address] | | | SERVICES, CORE | PARK [...] | + + + + + | [facility] | [address] | [place] [address] | | | SERVICES, CORE | KRISTEN [...] + | [facility] | [address] | [place] [address] | | | [place] | | | [...] [facility] | [address] | [place] | | | [facility] | [address] | [address] | | | TESTS | | | [...] | [address] [facility] | [place] [address] | | | SERVICES, CORE | PARK [...] + + + + + | [facility] | [address] | [place] [address] | | | SERVICES, CORE | KRISTEN [...] 98 | 60 - 99 mg/dL | [facility] - | | | GLUCOSE, | | [...] [facility] | [address] | [place], [place] | | | [facility] | [address] | [address] | | | TESTS | | | [...] | + + + + + | [facility] | [address] | [place] [address] | | | SERVICES, CORE | KRISTEN [...] gas. | | | | | | Ljgfqz-rm-eaoizp left | | | | | | [...] Davina | | | | | | [place] | | | | + + + [...] - [facility] | [address] | [place], [place] | | | [facility] | [address] | [address] | | | TESTS | | | [...] % | [facility] | | | | [facility],[address] | | [facility] UN[facility] | | | | [facility] | | PTH - INTFC | | | | [address] | | | | | | [phone].Xoftuplab. | | | | | | Kaitlin [...] [facility] | [address] | [place], [place] | | | UNIV PTH - INTFC | | [address] | | + + + + + [...] + + + + + | [facility] | [address] | [place] [address] | | | SERVICES, CORE | KRISTEN [...] [facility] | [address] | [place] [address] | | | JANELL SHARP | KRISTEN [...] - [facility] | [address] | [place], [place] | | | [facility] | [address] | [address] | | | TESTS | | | [...] [facility] | [address] | [place] [address] | | | SERVICES, CORE | PARK [...] | + + + + + | [facility] | [address] | [place] [address] | | | SERVICES, CORE | KRISTEN [...] [facility] | [address] | [place], [place] | | | [facility] | [address] | [address] | | | TESTS | | | [...] [facility] | [address] | [place] [address] | | | JANELL SHARP | KRISTEN [...] [facility] | [address] | [place] [address] | | | SERVICES, CORE | KRISTEN [...] + + | [facility] | [address] [facility] | [place] [address] | | | JANELL SHARP | KRISTEN [...] + + + + + | [facility] | [address] | [place] [address] | | | SERVICES, CORE | [address] | | | + + + + + MAGNESIUM, PLASMA (03/13/2012 3:42 AM PST) + +---------+ + + + | Component | Value | Ref Range | Performed | Pathologist | | | | | At | Signature | + +---------+ + + + | MAGNESIUM,P | 2.8 (H) | 1.8 - 2.5 mg/dL | [facility] | | | [facility] | | | [...] | + + + + + | [facility] | [address] | [place] [address] | | | SERVICES, CORE | KRISTEN [...] [facility] | [address] | [place] [address] | | | SERVICES, CORE | PARK [...] | | | | Final | | [place] | | | | CULTURE RESULT:No growth [...] + | [facility] - | [address] | [place], [place] [address] | | | [place] | | | | + + + [...] | | | Final CULTURE | | [place] | | | | RESULT:Salmonella, | | [...] days. | AIRPORT - | | | [facility] | + + + + + + + + | Performing | Address | City/State/Zipcode | Phone Number | | Organization | | | | + + + + + | [facility] | [address] | [place] [address] | | | [place] | | | [...] | + + + + + | [facility] | [address] | [place] [address] | | | SERVICES, CORE | KRISTEN [...] [facility] | [address] | [place], [place] | | | [facility] | [address] | [address] | | | TESTS | | | [...] view image for the detailed interpretation from [employer] results. | CARDIOLOGY | + + + + + + + + | Performing | Address | City/State/Zipcode | Phone Number | | Organization | | | | + + + + + | [facility] | [address] | [place], [place] | | | CARDIOLOGY | [address] | [address] | | + + + + + [...] | + +---------+ + + | [facility] DEPARTMENT OF | | | | | RADIOLOGY | | | | + +---------+ + + CULTURE, BLOOD BACTI & YEAST [facility] (03/12/2012 9:57 PM PST) + + + [...] | + + + + + | [facility] | [address] | [place] [address] | | | SERVICES, CORE | KRISTEN [...] [facility] | [address] | [place] [address] | | | SERVICES, CORE | KRISTEN [...] | + + + + + | [facility] | [address] | [place] [address] | | | SERVICES, CORE | KRISTEN [...] | + + + + + | [facility] | [address] | [place] [address] | | | SERVICES, [facility] | [address] | | | + + + + + CAPILLARY BLOOD GLUCOSE (NO CHG), POC (03/12/2012 7:19 PM PST) + +---------+ + + + | Component | Value | Ref Range | Performed | Pathologist | | | | | At | Signature | + +---------+ + + + | BLOOD | 176 (H) | 60 - 99 mg/dL | [facility] - | | | GLUCOSE, | [...] [facility] | [address] | [place], [place] | | | [facility] | [facility] | [address] | | | TESTS | | | [...] [facility] | [address] | [place] [address] | | | SERVICES, CORE | [address] [...] [facility] | [address] | [place] [address] | | | SERVICES, CORE | PARK [...] | + + + + + | [facility] | [address] | [place] [address] | | | SERVICES, | [address] [...] [facility] | [address] | [place] [address] | | | SERVICES, | [address] [...] | + + + + + | [facility] | [address] | [place] [address] | | | SERVICES, JANELL | KRISTEN [...] [facility] | [address] | [place] [address] | | | SERVICES, CORE | [address] [...] | + + + + + | [facility] | [address] [facility] | [place] [address] | | | SERVICES, CORE | KRISTEN [...] | | | | First dose on [facility] 03/23/12 at | | | | | [...] | | | Hours, ONCE, 1 dose, [facility] 03/16/12 | | | | | | [...] | | | | | 1 dose, [facility] 03/21/12 at 1515 | | PM PST [...] | | | | | 1115, Until [facility] 03/30/12 at 1055, | | | | [...] | | | | | 0840, Until [facility] 03/30/12 at 1057, | | | | [...] | | | oral, ONCE, 1 dose, [facility] 03/25/12 | | AM PST | | | | | at 1015 | | | | | | + +-------+ +--------+---+---+ +---+---+ | | | +---+---+ + +-------+ +--------+---+---+ | potassium chloride (aka | Given | 03/30/20 | 20 mEq | | | | KLOR-CON) packet 20 mEq 20 mEq, | | 12 12:07 | | | | | oral, ONCE, 1 dose, [facility] 03/30/12 | | PM PST | | | | | at 1100 | | | | | | + +-------+ +--------+---+---+ +---+---+ | | | +---+---+ + +-------+ +--------+---+---+ | potassium chloride (aka | Given | 03/17/20 | 40 mEq | | | | KLOR-CON) packet 40 mEq 40 mEq, | | 12 6:23 | | | | | oral, ONCE, 1 dose, [facility] 03/17/12 | | PM PST | [...] | | | | | NEEDED, Starting [facility] 03/16/12 at | | | | | [...] | | | | First dose on [facility] 03/30/12 at | | PM PST | [...] | | | | modification) on [facility] 03/23/12 at | | | | | [...]
--- OUTSIDE RECORDS SUMMARY | ~2019-03-09 | XMS | Encounter Summary ---
Demographics + + + | Address | [address] | | | [place] [address] | + + + | Home Phone [...] Team Providers + +------+ + | Care Tip Cutter Name | Role | Phone | + +------+ + PCP | Unavailable | + +------+ + Encounter Details +--------+ + + + + | Date | Type | Department | Care Team | Description | +--------+ + + + + | 04/10/ | Hospital | [facility] | Ro Davidson MD | Pyelonephritis | | 2015 - | Encounter | [facility] | [address] | | | | | CLINICAL DECISION | [place] [address] | | | 07/22/ | | [address] | [phone] | | | 2014 | | [place], [place] | | | | | | [address] | | | | | | [phone] | | | +--------+ + + + [...] Summaries by Compa Jules MD at 07/22/14 4993 Author: Compa Jules MD Service: (none) Author Type: Physician Filed: 08/14/14 1208 Date of Service: 07/22/14 9067 Status: Signed Toll Gate Keeper: Compa Jules MD (Physician) Related Notes: Original Note by Compa Jules MD (Physician) filed at 07/22/14 1259 [facility] Service: Hospitalist Physician Discharge Summary Patient ID: Mackenzie Willingham [id number] y.o. 1955 Admit date: 07/19/2014 Discharge [...] Follow up: Neel Fernandes MD [address] [place] [address] [place] [address] Raphael Gan DO [address] 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 You may get the following medications from [...] (none) Author Type: Registered Nurse Filed: 07/22/14 5739 Date of Service: 07/22/141334 Status: Signed Toll Gate Keeper: Leelee Fermin RN (Registered Nurse) Patient received discharge teaching with no questions or concerns. Patient left via private vehicle with daughter. Leelee Fermin RN onver roshan Transaction, Provider Unknown - 07/22/2014 1:06 PM PDT Case Management by Kateryna Salazar RN at 07/22/14 3486 Author: Kateryna Salazar RN Service: (none) Author Type: Registered Nurse Filed: 07/22/14 1307 Date of Service: 07/22/14 1306 Status: Signed Toll Gate Keeper: Kateryna Salazar RN (Registered Nurse) Patient requesting [...] Date of Service: 07/22/14 1155 Status: Signed Toll Gate Keeper: Nadiya Smith PT (Physical Therapist) 07/22/14 1155 [...] Date of Service: 07/22/14 1043 Status: Signed Toll Gate Keeper: Raphael Gan DO (Physician) [facility] Service: Infectious Disease Progress Note Hospital Day: LOS: 3 days Post-Op Day: * No surgery found * SUBJECTIVE Patient Summary: 58 y.o. female with significant past medical history of Crohn's dis ease on chronic prednisone 15 mg daily, COPD, gastroesophageal reflux disease, allergies to penicillin, levofloxacin, erythromycin who presented to [facility] with we akness and [...] 07/22/2014 EGFR >60 07/22/2014 Urine culture from [facility] shows pansensitive Escherichia coli with [...] Notes by Compa Jules MD at 07/21/14 6198 Author: Compa Jules MD Service: (none) Author Type: Physician Filed: 07/21/14 1124 Date of Service: 07/21/14 1104 Status: Signed Toll Gate Keeper: Compa Jules MD (Physician) [facility] Service: Hospitalist Progress Note Hospital Day: LOS: 2 days Consultants: Treatment Team: Consulting Physician: Raphael Gan DO Admitting Provider: Ro Davidson MD The first problem in assessment is the principal problem. ASSESSMENT/ PLAN 1. Systemic inflammatory response syndrome, urinary tract infection. Leukocytosis improving (patient does have some chronic leukocytosis). Continue with vancomycin, aztreonam for now. Received cultures, blood and urine from [facility]. Blood cultures negative so far. 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 Patient has multiple allergie s. [...] 4 months. She has to follow with mortgage specialist. 5. Chronic congestive heart failure, currently stable. Not decompensated at this point. Disposition: Home. 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 Attempted to eat breakfast, using the commode to toil et, took shower. Still complains of headache and nausea. Vale Salgado onver roshan Transaction, Provider Unknown - 07/21/2014 9:16 AM PDT Case Management by LEVI Jerry at 07/21/14 0916 Author: LEVI Jerry Service: (none) Author Type: Nurse Educator Filed: 07/21/1420 Date of Service: 07/21/14915 Status: Signed Toll Gate Keeper: LEVI Jerry (Nurse Educator) 07/21/14913 Discharge Planning Evaluation Admitting Diagnosis (Sepsis [...] care /care: Pt lives with her in [place]. Can provide all self-care/ADLs patients primary care [...] disease with hiatal hernia , Patient's insurance: Medicare/[facility] PT recommendations / DME recommendations: N/A - No DME indicated at this time Community resources: Patient just started PT at the "rec center" in [place]. Assistance in transportation: Family can transport home. CM also spoke with pt's RN, Vale and she did not identify any d/c needs at this time. LEVI Jerry Compa Nam MD - 07/20/2014 4:57 PM PDTFormatting of this note might be different from the origi nal. Progress Notes by Compa Jules MD at 07/20/14 861 Author: Compa Jules MD Service: (none) Author Type: Physician Filed: 08/04/14 1307 Date of Service: 07/20/141656 Status: Signed Toll Gate Keeper: Compa Jules MD (Physician) Related Notes: Original Note by Compa Jules MD (Physician) filed at 07/20/14 1700 [facility] Service: Hospitalist Progress Note Hospital Day: [...] 4 months. She has to follow with mortgage specialist. 5. Chronic congestive heart failure, currently stable. Not decompensated at this point. Disposition: Home. 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 Initiation of Vancomycin Pharmacy Dosing Mackenzie Willingham 58 y.o. female 1.753 m (5' 9") 64.32 kg (141 lb 12.8 oz) Body mass index is 20.93 kg/(m^2). [place] Body Weight: 66.2 kg Adjusted Body Weight: 64.3 kg CREATININE Date Value Ref Range Status 07/20/2014 0.76 0.50 - 1.00 mg/dL Final Testing performed at [facility] [facility];[place] [address] Estimated CrCl : CREATININE: 0.76 (07/20/14 0354) [...] 07/19/142055 Date of Service: 07/19/142055 Status: Signed Toll Gate Keeper: Hamilton Drummond RPH (Pharmacist) Note ccl 90.2ml/min meds reviewed Pharmacy will follow [facility] 2054 docume nted in this encounter [...] | Testing performed | | | at [facility], [address] [facility] [place] [address] | | + + + + +---------+ [...] EXTERNAL | | | | performed at [facility], [address] | | LAB | | | | [address] [place], | | | | | | [place] [address] | | | | + + + + + + | Clarity | CLEARComment: Testing | | EXTERNAL | | | | performed at [facility], [address] | | LAB | | | | [address], | | | | | | [place] [address] | | | | + + + + + + | Specific | 1.009Comment: Testing | 1.002 - 1.030 | EXTERNAL | | | [place] | performed at [facility], [address] | | LAB | | | | [address] [place], | | | | | | [place] [address] | | | | + + + + + + | Leukocyte | MODERATE (A)Comment: | | EXTERNAL | | | Esterase, | Testing performed at | | LAB | | | Urine | [facility], [address] [facility] | | | | | | [place] | | | | | | [address] | | | | + + + + + + | Nitrite, | NEGATIVEComment: Testing | | EXTERNAL | | | Urine | performed at [facility], [address] | | LAB | | | | [address], | | | | | | [place] [address] | | | | + + + + + + | Urobilinoge | 0.2Comment: Testing | mg/dL | EXTERNAL | | | n, Urine | performed at [facility], [address] | | LAB | | | | [address] [place], | | | | | | [place] [address] | | | | + + + + + + | Protein, | NEGATIVEComment: Testing | mg/dL | EXTERNAL | | | Urine | performed at [facility], [address] | | LAB | | | | [address], | | | | | | [place] [address] | | | | + + + + + + | pH, Urine | 6.0Comment: Testing | 5.0 - 8.0 | EXTERNAL | | | | performed at [facility], [address] | | LAB | | | [address], | | | | | | [place] [address] | | | | + + + + + + | Blood, | NEGATIVEComment: Testing | | EXTERNAL | | | Urine | performed at [facility], [address] | | LAB | | | | [address], | | | | | | [place], [place] [address] | | | | + + + + + + | Ketones | NEGATIVEComment: Testing | mg/dL | EXTERNAL | | | | performed at [facility], [address] | | LAB | | | | [address], | | | | | | [place], [place] [address] | | | | + + + + + + | Bilirubin, | NEGATIVEComment: Testing | | EXTERNAL | | | Urine | performed at [facility], [address] | | LAB | | | | [address], | | | | | | [place], [place] [address] | | | | + + + + + + | Glucose, | NEGATIVEComment: Testing | mg/dL | EXTERNAL | | | Urine | performed at [facility], [address] | | LAB | | | | [address], | | | | | | [place], [place] [address] | | | | + + + [...] | | | | | [place] [address] | | | | + + + + + + | RBC, UA | 16-25Comment: Testing | 0 - 5 /hpf | EXTERNAL | | | | performed at [facility], [address] | | LAB | | | | [address], | | | | | | [place] [address] | | | | + + + + + + | Epithelial | 26-50Comment: Testing | /lpf | EXTERNAL | | | Cells | performed at [facility], [address] | | LAB | | | | [address], | | | | | | [place] [address] | | | | + + + + + + | Bacteria, | NONE SEENComment: | | EXTERNAL | | | UA | CULTURE TO FOLLOWTesting | | LAB | | | | performed at [facility], [address] | | | | | | [address], | | | | | | [place] [address] | | | | + + + + + + | HYALINE | NONE SEENComment: | | EXTERNAL | | | CASTS UA | Testing performed at | | LAB | | | | [facility], [address] [facility] | | | | | | [place] | | | | | | [address] | | | | + + + [...] | | | performed at [facility] | | | | | | [facility];[place], [place] | | | | | | [address] | | | | + + + [...] | | | | | | [place] | | | | | | [address] | | | | + + + + + + | RED CELL | 4.06Comment: Testing | 3.70 - 5.10 | EXTERNAL | | | COUNT | performed at [facility], [address] | M/uL | LAB | | | | [address], | | | | | | [place] [address] | | | | + + + + + + | Hgb | 12.5Comment: Testing | 11.3 - 15.5 | EXTERNAL | | | | performed at [facility], [address] | g/dL | LAB | | | | [address], | | | | | | [place] [address] | | | | + + + + + + | Hematocrit, | 40.1Comment: Testing | 34.0 - 46.0 % | EXTERNAL | | | POC | performed at [facility], [address] | | LAB | | | | [address], | | | | | | [place] [address] | | | | + + + + + + | MCV | 98.6Comment: Testing | 80.0 - 100.0 fl | EXTERNAL | | | | performed at [facility], [address] | | LAB | | | | [address], | | | | | | [place] [address] | | | | + + + + + + | MCH | 30.8Comment: Testing | 27.0 - 34.0 pg | EXTERNAL | | | | performed at [facility], [address] | | LAB | | | | [address], | | | | | | [place] [address] | | | | + + + + + + | MCHC | 31.2 (L)Comment: Testing | 32.0 - 35.5 | EXTERNAL | | | | performed at [facility], [address] | g/dL | LAB | | | | [address], | | | | | | [place] [address] | | | | + + + + + + | RDW-CV | 55.1 (H)Comment: Testing | 37 - 53 fl | EXTERNAL | | | | performed at [facility], [address] | | LAB | | | | [address], | | | | | | [place] [address] | | | | + + + + + + | Platelet | 309Comment: Testing | 150 - 400 K/uL | EXTERNAL | | | Count | performed at [facility], [address] | | LAB | | | Plasma | [address], | | | | | | [place] [address] | | | | + + + + + + | MPV | 8.7Comment: Testing | fl | EXTERNAL | | | | performed at [facility], [address] | | LAB | | | | [address], | | | | | | [place] [address] | | | | + + + + + + | Differentia | AUTOMATEDComment: | | EXTERNAL | | | l Type | Testing performed at | | LAB | | | | [facility], [address] | | | | | | [place] | | | | | | [address] | | | | + + + + + + | % Segmented | 72.50Comment: Testing | % | EXTERNAL | | | | performed at [facility], [address] | | LAB | | | Neutrophils | [address], | | | | | | [place] [address] | | | | + + + + + + | % | 19.86Comment: Testing | % | EXTERNAL | | | Lymphocytes | performed at [facility], [address] | | LAB | | | | [address] [place], | | | | | | [place] [address] | | | | + + + + + + | % Monocytes | 7.00Comment: Testing | % | EXTERNAL | | | | performed at [facility], [address] | | LAB | | | | [address], | | | | | | [place] [address] | | | | + + + + + + | % | 0.21Comment: Testing | % | EXTERNAL | | | Eosinophils | performed at [facility], [address] | | LAB | | | | [address], | | | | | | [place] [address] | | | | + + + + + + | % Basophils | 0.43Comment: Testing | % | EXTERNAL | | | | performed at [facility], [address] | | LAB | | | | [address], | | | | | | [place] [address] | | | | + + + + + + | Absolute | 8.17 (H)Comment: Testing | 1.90 - 7.40 | EXTERNAL | | | Segmented | performed at [facility], [address] | K/uL | LAB | | | Neutrophils | [address], | | | | | | [place] [address] | | | | + + + + + + | Absolute | 2.24Comment: Testing | 1.00 - 3.90 | EXTERNAL | | | Lymphocytes | performed at [facility], [address] | K/uL | LAB | | | | [address], | | | | | | [place] [address] | | | | + + + + + + | Absolute | 0.79Comment: Testing | 0.00 - 0.80 | EXTERNAL | | | Monocytes | performed at [facility], [address] | K/uL | LAB | | | | [address], | | | | | | [place] [address] | | | | + + + + + + | Absolute | 0.02Comment: Testing | 0.00 - 0.50 | EXTERNAL | | | Eosinophils | performed at [facility], [address] | K/uL | LAB | | | | [address], | | | | | | [place] [address] | | | | + + + + + + | Absolute | 0.05Comment: Testing | 0.00 - 0.10 | EXTERNAL | | | Basophils | performed at [facility], [address] | K/uL | LAB | | | | [address], | | | | | | [place] [address] | | | | + + + [...] EXTERNAL | | | | performed at [facility], [address] | | LAB | | | | [address], | | | | | | [place] [address] | | | | + + + [...] EXTERNAL | | | | performed at [facility], [address] | | LAB | | | | [address], | | | | | | [place] [address] | | | | + + [...] | | | | | [place] [address] | | | | + + + + + + | K | 3.9Comment: Testing | 3.5 - 4.9 | EXTERNAL | | | | performed at [facility], [address] | mmol/L | LAB | | | | [address], | | | | | | [place] [address] | | | | + + + + + + | Cl | 106Comment: Testing | 99 - 109 mmol/L | EXTERNAL | | | | performed at [facility], [address] | | LAB | | | | [address], | | | | | | [place] [address] | | | | + + + + + + | CO2 | 20 (L)Comment: Testing | 23 - 32 mmol/L | EXTERNAL | | | | performed at [facility], [address] | | LAB | | | | [address], | | | | | | [place] [address] | | | | + + + + + + | Anion Gap | 8Comment: Testing | 5 - 20 mmol/L | EXTERNAL | | | | performed at [facility], [address] | | LAB | | | | [address], | | | | | | [place] [address] | | | | + + + + + + | Glucose, | 98Comment: Testing | 65 - 99 mg/dL | EXTERNAL | | | Fasting | performed at [facility], [address] | | LAB | | | | [address], | | | | | | [place] [address] | | | | + + + + + + | BUN | 19Comment: Testing | 8 - 25 mg/dL | EXTERNAL | | | | performed at [facility], [address] | | LAB | | | | [address], | | | | | | [place] [address] | | | | + + + + + + | Creatinine | 0.69Comment: Testing | 0.50 - 1.00 | EXTERNAL | | | | performed at [facility], [address] | mg/dL | LAB | | | | [address], | | | | | | [place] [address] | | | | + + + + + + | BUN/Creatin | 28Comment: Testing | | EXTERNAL | | | ine Ratio | performed at [facility], [address] | | LAB | | | | [address], | | | | | | [place] [address] | | | | + + + + + + | Calcium | 8.5Comment: Testing | 8.5 - 10.5 | EXTERNAL | | | | performed at [facility], [address] | mg/dL | LAB | | | | [address], | | | | | | [place] [address] | | | | + + + + + + | Protein, | 5.9 (L)Comment: Testing | 6.3 - 8.2 g/dL | EXTERNAL | | | Total | performed at [facility], [address] | | LAB | | | | [address], | | | | | | [place] [address] | | | | + + + + + + | Albumin | 2.8 (L)Comment: Testing | 3.6 - 5.0 g/dL | EXTERNAL | | | | performed at [facility], [address] | | LAB | | | | [address], | | | | | | [place] [address] | | | | + + + + + + | Globulin | 3.1Comment: Testing | 1.3 - 4.9 g/dL | EXTERNAL | | | | performed at [facility], [address] | | LAB | | | | [address], | | | | | | [place] [address] | | | | + + + + + + | A/G Ratio | 0.9 (L)Comment: Testing | 1.0 - 2.4 | EXTERNAL | | | | performed at [facility], [address] | | LAB | | | | [address], | | | | | | [place] [address] | | | | + + + + + + | Bilirubin | 0.4Comment: Testing | 0.1 - 1.5 mg/dL | EXTERNAL | | | Total | performed at [facility], [address] | | LAB | | | | [address], | | | | | | [place] [address] | | | | + + + + + + | ALP, | 124 (H)Comment: Testing | 35 - 115 U/L | EXTERNAL | | | External | performed at [facility], [address] | | LAB | | | | [address], | | | | | | [place] [address] | | | | + + + + + + | AST | 18Comment: Testing | 10 - 45 U/L | EXTERNAL | | | | performed at [facility], [address] | | LAB | | | | [address], | | | | | | [place] [address] | | | | + + + + + + | ALT | 13Comment: Testing | 10 - 65 U/L | EXTERNAL | | | | performed at [facility], [address] | | LAB | | | | [facility], | | | | | | [place] [address] | | | | + + + [...] | | | | | | at [facility], [address] | | | | | | [email or web address] [facility], | | | | | | [place] [address] | | | | + + + [...] | | | performed at [facility];[address] | | | | | | [address] [facility];[place], [place] | | | | | | [address] | | | | + + + [...] LAB | | | | [facility];[address] | | | [address];[place] [address] | | | | + + + + + + | RED CELL | 4.10Comment: Testing | 3.70 - 5.10 | EXTERNAL | | | COUNT | performed at [facility];[address] | M/uL | LAB | | | | [address];[place] | | | | | | [address] | | | | + + + + + + | Hgb | 12.9Comment: Testing | 11.3 - 15.5 | EXTERNAL | | | | performed at [facility];[address] | g/dL | LAB | | | | [address];[place] | | | | | | [address] | | | | + + + + + + | Hematocrit, | 40.0Comment: Testing | 34.0 - 46.0 % | EXTERNAL | | | POC | performed at [facility];[address] | | LAB | | | | [address];[place] | | | | | | [address] | | | | + + + + + + | MCV | 97.6Comment: Testing | 80.0 - 100.0 fl | EXTERNAL | | | | performed at [facility];[address] | | LAB | | | | [address];[place] | | | | | | [address] | | | | + + + + + + | MCH | 31.4Comment: Testing | 27.0 - 34.0 pg | EXTERNAL | | | | performed at [facility];[address] | | LAB | | | | [address];[place] | | | | | | [address] | | | | + + + + + + | MCHC | 32.1Comment: Testing | 32.0 - 35.5 | EXTERNAL | | | | performed at [facility];[address] | g/dL | LAB | | | | [address];[place] | | | | | | [address] | | | | + + + + + + | RDW-CV | 56.0 (H)Comment: Testing | 37 - 53 fl | EXTERNAL | | | | performed at [facility];[address] | | LAB | | | | [address];[place] | | | | | | [address] | | | | + + + + + + | Platelet | 323Comment: Testing | 150 - 400 K/uL | EXTERNAL | | | Count | performed at [facility];[address] | | LAB | | | Plasma | [address];[place] | | | | | | [address] | | | | + + + + + + | MPV | 7.9Comment: Testing | fl | EXTERNAL | | | | performed at [facility];[address] | | LAB | | | | [address];[place] | | | | | | [address] | | | | + + + + + + | Differentia | AUTOMATEDComment: | | EXTERNAL | | | l Type | Testing performed at | | LAB | | | | [facility];[address];[place] [address] | | | | + + + + + + | % Segmented | 72.96Comment: Testing | % | EXTERNAL | | | | performed at [facility];[address] | | LAB | | | Neutrophils | [address];[place] | | | | | | [address] | | | | + + + + + + | % | 19.69Comment: Testing | % | EXTERNAL | | | Lymphocytes | performed at [facility];[address] | | LAB | | | | [address];[place] | | | | | | [address] | | | | + + + + + + | % Monocytes | 6.53Comment: Testing | % | EXTERNAL | | | | performed at [facility];[address] | | LAB | | | | [address];[place] | | | | | | [address] | | | | + + + + + + | % | 0.04Comment: Testing | % | EXTERNAL | | | Eosinophils | performed at [facility];[address] | | LAB | | | | [address];[place] | | | | | | [address] | | | | + + + + + + | % Basophils | 0.78Comment: Testing | % | EXTERNAL | | | | performed at [facility];[address] | | LAB | | | | [address];[place] | | | | | | [address] | | | | + + + + + + | Absolute | 9.79 (H)Comment: Testing | 1.90 - 7.40 | EXTERNAL | | | Segmented | performed at [facility];[address] | K/uL | LAB | | | Neutrophils | [address];[place] | | | | | | [address] | | | | + + + + + + | Absolute | 2.64Comment: Testing | 1.00 - 3.90 | EXTERNAL | | | Lymphocytes | performed at [facility];[address] | K/uL | LAB | | | | [address];[place] | | | | | | [address] | | | | + + + + + + | Absolute | 0.88 (H)Comment: Testing | 0.00 - 0.80 | EXTERNAL | | | Monocytes | performed at [facility];[address] | K/uL | LAB | | | | [address];[place] | | | | | | [address] | | | | + + + + + + | Absolute | 0.01Comment: Testing | 0.00 - 0.50 | EXTERNAL | | | Eosinophils | performed at [facility];[address] | K/uL | LAB | | | | [address];[place] | | | | | | [address] | | | | + + + + + + | Absolute | 0.11 (H)Comment: Testing | 0.00 - 0.10 | EXTERNAL | | | Basophils | performed at [facility];[address] | K/uL | LAB | | | | [address];[place] | | | | | | [address] | | | | + + + [...] | | | performed at [facility] | | LAB | | | | [address];[place], [place] | | | | | | [address] | | | | + + + [...] | | | performed at [facility];888 | | LAB | | | | [address];[place], [place] | | | | | | [address] | | | | + + + [...] | | | performed at [facility];888 | mmol/L | LAB | | | | [address];[place] | | | | | | [address] | | | | + + + + + + | K | 4.0Comment: Testing | 3.5 - 4.9 | EXTERNAL | | | | performed at [facility] [place];888 | mmol/L | LAB | | | | [address];[place] | | | | | | [address] | | | | + + + + + + | Cl | 110 (H)Comment: Testing | 99 - 109 mmol/L | EXTERNAL | | | | performed at [facility] [place];[address] | | LAB | | | | [address];[place] | | | | | | [address] | | | | + + + + + + | CO2 | 23Comment: Testing | 23 - 32 mmol/L | EXTERNAL | | | | performed at [facility] [place];888 | | LAB | | | | [address];[place] | | | | | | [address] | | | | + + + + + + | Anion Gap | 12Comment: Testing | 5 - 20 mmol/L | EXTERNAL | | | | performed at [facility] [place];[address] | | LAB | | | | [address];[place] | | | | | | [address] | | | | + + + + + + | Glucose, | 97Comment: Testing | 65 - 99 mg/dL | EXTERNAL | | | Fasting | [facility] [facility] | | LAB | | | | [address];[place] | | | | | | [address] | | | | + + + + + + | BUN | 19Comment: Testing | 8 - 25 mg/dL | EXTERNAL | | | | performed at [facility] | | LAB | | | | [address];[place] | | | | | | [address] | | | | + + + + + + | Creatinine | 0.84Comment: Testing | 0.50 - 1.00 | EXTERNAL | | | | performed at [facility]888 | mg/dL | LAB | | | | [address];[place] | | | | | | [address] | | | | + + + + + + | BUN/Creatin | 23Comment: Testing | | EXTERNAL | | | ine Ratio | performed at [facility] | | LAB | | | | [address];[place] | | | | | | [address] | | | | + + + + + + | Calcium | 8.1 (L)Comment: Testing | 8.5 - 10.5 | EXTERNAL | | | | performed at [facility];888 | mg/dL | LAB | | | | [address];[place] | | | | | | [address] | | | | + + + + + + | Protein, | 6.5Comment: Testing | 6.3 - 8.2 g/dL | EXTERNAL | | | Total | performed at [facility];888 | | LAB | | | | [address];[place] | | | | | | [address] | | | | + + + + + + | Albumin | 2.4 (L)Comment: Testing | 3.6 - 5.0 g/dL | EXTERNAL | | | | performed at [facility];888 | | LAB | | | | [address];[place] | | | | | | [address] | | | | + + + + + + | Globulin | 4.1Comment: Testing | 1.3 - 4.9 g/dL | EXTERNAL | | | | performed at [facility];888 | | LAB | | | | [address];[place] | | | | | | [address] | | | | + + + + + + | A/G Ratio | 0.6 (L)Comment: Testing | 1.0 - 2.4 | EXTERNAL | | | | performed at [facility];[address] | | LAB | | | | [address];[place] | | | | | | [address] | | | | + + + + + + | Bilirubin | 0.5Comment: Testing | 0.1 - 1.5 mg/dL | EXTERNAL | | | Total | performed at [facility];[address] | | LAB | | | | [address];[place] | | | | | | [address] | | | | + + + + + + | ALP, | 164 (H)Comment: Testing | 35 - 115 U/L | EXTERNAL | | | External | performed at [facility];[address] | | LAB | | | | [address];[place] | | | | | | [address] | | | | + + + + + + | AST | 18Comment: Testing | 10 - 45 U/L | EXTERNAL | | | | performed at [facility];888 | | LAB | | | | [address];[place] | | | | | | [address] | | | | + + + + + + | ALT | 19Comment: Testing | 10 - 65 U/L | EXTERNAL | | | | performed at [facility];[address] | | LAB | | | | [address];[place] | | | | | | [address] | | | | + + + [...] | | | | at [facility] | | | | | | [address];[place] [address] | | | | + + + [...] | | | | | | ACUTE [place] Testing | | | | | | performed at [facility] | | | | | | [facility];[place], [place] | | | | | | [address] | | | | + + + [...] | | | performed at [facility] | | LAB | | | | [facility];[place], [place] | | | | | | [address] | | | | + + + [...] | | | | at [facility];[address] [place] [address] | | | | | | [facility];[place] [address] | | | | + + + [...] | | | performed at [facility] | | | | | | [address];[place], [place] | | | | | | [address] | | | | + + + [...] [place] | | | | | | [address] | | | | + + + + + + | RED CELL | 4.76Comment: Testing | 3.70 - 5.10 | EXTERNAL | | | COUNT | performed at [facility], [address] | M/uL | LAB | | | | [address], | | | | | | [place] [address] | | | | + + + + + + | Hgb | 15.1Comment: Testing | 11.3 - 15.5 | EXTERNAL | | | | performed at [facility], [address] | g/dL | LAB | | | | [address], | | | | | | [place] [address] | | | | + + + + + + | Hematocrit, | 45.6Comment: Testing | 34.0 - 46.0 % | EXTERNAL | | | POC | performed at [facility], [address] | | LAB | | | | [address], | | | | | | [place] [address] | | | | + + + + + + | MCV | 95.9Comment: Testing | 80.0 - 100.0 fl | EXTERNAL | | | | performed at [facility], [address] | | LAB | | | | [address], | | | | | | [place] [address] | | | | + + + + + + | MCH | 31.7Comment: Testing | 27.0 - 34.0 pg | EXTERNAL | | | | performed at [facility], [address] | | LAB | | | | [address], | | | | | | [place] [address] | | | | + + + + + + | MCHC | 33.1Comment: Testing | 32.0 - 35.5 | EXTERNAL | | | | performed at [facility], [address] | g/dL | LAB | | | | [address], | | | | | | [place] [address] | | | | + + + + + + | RDW-CV | 53.8 (H)Comment: Testing | 37 - 53 fl | EXTERNAL | | | | performed at [facility], [address] | | LAB | | | | [email or web address], | | | | | | [place] [address] | | | | + + + + + + | Platelet | 355Comment: Testing | 150 - 400 K/uL | EXTERNAL | | | Count | performed at [facility], [address] | | LAB | | | Plasma | [address], | | | | | | [place] [address] | | | | + + + + + + | MPV | 8.4Comment: Testing | fl | EXTERNAL | | | | performed at [facility], [address] | | LAB | | | | [address], | | | | | | [place], [place] [address] | | | | + + + + + + | Differentia | MANUALComment: Testing | | EXTERNAL | | | l Type | performed at [facility], [address] | | LAB | | | | [address], | | | | | | [place] [address] | | | | + + + + + + | Segmented | 87Comment: Testing | % | EXTERNAL | | | Neutrophils | performed at [facility], [address] | | LAB | | | Manual | [address], | | | | | | [place] [address] | | | | + + + + + + | % Bands | 6Comment: Testing | % | EXTERNAL | | | | performed at [facility], [address] | | LAB | | | | [address], | | | | | | [place] [address] | | | | + + + + + + | Lymphocytes | 7Comment: Testing | % | EXTERNAL | | | Manual | performed at [facility], [address] | | LAB | | | | [address], | | | | | | [place] [address] | | | | + + + + + + | Absolute | 12.66 (H)Comment: | 1.90 - 7.40 | EXTERNAL | | | Neutrophils | Testing performed at | K/uL | LAB | | | | [facility], [address] | | | | | | [place] | | | | | | [address] | | | | + + + + + + | Bands | 0.87 (H)Comment: Testing | 0.00 - 0.20 | EXTERNAL | | | Manual | performed at [facility], [address] | K/uL | LAB | | | | [address] [place], | | | | | | [place] [address] | | | | + + + + + + | Absolute | 1.02Comment: Testing | 1.00 - 3.90 | EXTERNAL | | | Lymphocytes | performed at [facility], [address] | K/uL | LAB | | | | [address], | | | | | | [place] [address] | | | | + + + + + + | RBC | NORMAL PLT MORPHComment: | | EXTERNAL | | | Morphology | NORMAL RBC MORPHTesting | | LAB | | | | performed at [facility], [address] | | | | | [email or web address], | | | | | | [place] [address] | | | | + + + [...] | | | performed at [facility] | | LAB | | | | [address];[place] | | | | | | [address] | | | | + + + [...] | | | performed at [facility] | | LAB | | | | [address];[place], [place] | | | | | | [address] [...] | | | performed at [facility] | | LAB | | | | [address];[place], [place] | | | | | | [address] | | | | + + + [...] | | | performed at [facility];888 | mmol/L | LAB | | | | [address];[place] | | | | | | [address] | | | | + + + + + + | K | 3.7Comment: Testing | 3.5 - 4.9 | EXTERNAL | | | | performed at [facility];888 | mmol/L | LAB | | | | [address];[place] | | | | | | [address] | | | | + + + + + + | Cl | 103Comment: Testing | 99 - 109 mmol/L | EXTERNAL | | | | performed at [facility];[address] | | LAB | | | | [address];[place] | | | | | | [address] | | | | + + + + + + | CO2 | 23Comment: Testing | 23 - 32 mmol/L | EXTERNAL | | | | performed at [facility];[address] | | LAB | | | | [address];[place] | | | | | | [address] | | | | + + + + + + | Anion Gap | 15Comment: Testing | 5 - 20 mmol/L | EXTERNAL | | | | performed at [facility];[address] | | LAB | | | | [address];[place] | | | | | | [address] | | | | + + + + + + | Glucose, | 150 (H)Comment: Testing | 65 - 99 mg/dL | EXTERNAL | | | Fasting | performed at [facility];[address] | | LAB | | | | [address];[place] | | | | | | [address] | | | | + + + + + + | BUN | 9Comment: Testing | 8 - 25 mg/dL | EXTERNAL | | | | performed at [facility];[address] | | LAB | | | | [address];[place] | | | | | | [address] | | | | + + + + + + | Creatinine | 0.76Comment: Testing | 0.50 - 1.00 | EXTERNAL | | | | performed at [facility];888 | mg/dL | LAB | | | | [address];[place] | | | | | | [address] | | | | + + + + + + | BUN/Creatin | 12Comment: Testing | | EXTERNAL | | | ine Ratio | performed at [facility];[address] | | LAB | | | | [address];[place] | | | | | | [address] | | | | + + + + + + | Calcium | 8.6Comment: Testing | 8.5 - 10.5 | EXTERNAL | | | | performed at [facility];888 | mg/dL | LAB | | | | [address];[place] | | | | | | [address] | | | | + + + + + + | Protein, | 7.3Comment: Testing | 6.3 - 8.2 g/dL | EXTERNAL | | | Total | performed at [facility];[address] | | LAB | | | | [address];[place] | | | | | | [address] | | | | + + + + + + | Albumin | 2.6 (L)Comment: Testing | 3.6 - 5.0 g/dL | EXTERNAL | | | | performed at [facility];[address] | | LAB | | | | [address];[place] | | | | | | [address] | | | | + + + + + + | Globulin | 4.7Comment: Testing | 1.3 - 4.9 g/dL | EXTERNAL | | | | performed at [facility];[address] | | LAB | | | | [address];[place] | | | | | | [address] | | | | + + + + + + | A/G Ratio | 0.6 (L)Comment: Testing | 1.0 - 2.4 | EXTERNAL | | | | performed at [facility];[address] | | LAB | | | | [address];[place] | | | | | | [address] | | | | + + + + + + | Bilirubin | 0.9Comment: Testing | 0.1 - 1.5 mg/dL | EXTERNAL | | | Total | performed at [facility];[address] | | LAB | | | | [address];[place] | | | | | | [address] | | | | + + + + + + | ALP, | 246 (H)Comment: Testing | 35 - 115 U/L | EXTERNAL | | | External | performed at [facility];888 | | LAB | | | | [address];[place] | | | | | | [address] | | | | + + + + + + | AST | 26Comment: Testing | 10 - 45 U/L | EXTERNAL | | | | performed at [facility];[address] | | LAB | | | | [address];[place] | | | | | | [address] | | | | + + + + + + | ALT | 23Comment: Testing | 10 - 65 U/L | EXTERNAL | | | | performed at [facility];[address] | | LAB | | | | [address];[place] | | | | | | [address] | | | | + + + [...] | | | | at [facility];[address];[place] [address] | | | | + + [...] | Testing performed | | | at [facility], [address] [place] [address] | | + + + + +---------+ [...] | | LAB | | | | [address], | | | | | | [place] [address] | | | | + + + + + + | Clarity | CLEARComment: Testing | | EXTERNAL | | | | performed at [facility], [address] | | LAB | | | | [email or web address], | | | | | | [place] [address] | | | | + + + + + + | Specific | 1.007Comment: Testing | 1.002 - 1.030 | EXTERNAL | | | [place] | performed at [facility], [address] | | LAB | | | | [address] [place], | | | | | | [place] [address] | | | | + + + + + + | Leukocyte | SMALL (A)Comment: | | EXTERNAL | | | Esterase, | Testing performed at | | LAB | | | Urine | [facility], [address] | | | | | | [place] | | | | | | [address] | | | | + + + + + + | Nitrite, | NEGATIVEComment: Testing | | EXTERNAL | | | Urine | performed at [facility], [address] | | LAB | | | | [address], | | | | | | [place] [address] | | | | + + + [...] | | | | | [place] [address] | | | | + + + + + + | pH, Urine | 6.5Comment: Testing | 5.0 - 8.0 | EXTERNAL | | | | performed at [facility], [address] | | LAB | | | | [address] [place], | | | | | | [place] [address] | | | | + + + + + + | Blood, | SMALL (A)Comment: | | EXTERNAL | | | Urine | Testing performed at | | LAB | | | | [facility], [address] | | | | | | [place] | | | | | | [address] | | | | + + + + + + | Ketones | TRACE (A)Comment: | mg/dL | EXTERNAL | | | | Testing performed at | | LAB | | | | [facility], [address] | | | | | | [place] | | | | | | [address] | | | | + + + + + + | Bilirubin, | NEGATIVEComment: Testing | | EXTERNAL | | | Urine | performed at [facility], [address] | | LAB | | | | [address] [place], | | | | | | [place] [address] | | | | + + + + + + | Glucose, | NEGATIVEComment: Testing | mg/dL | EXTERNAL | | | Urine | performed at [facility], [address] | | LAB | | | | [address] [place], | | | | | | [place] [address] | | | | + + + [...] | | | | | [place] [address] | | | | + + + + + + | RBC, UA | 1-5Comment: Testing | 0 - 5 /hpf | EXTERNAL | | | | performed at [facility], [address] | | LAB | | | | [address], | | | | | | [place] [address] | | | | + + + + + + | Epithelial | 16-25Comment: Testing | /lpf | EXTERNAL | | | Cells | performed at [facility], [address] | | LAB | | | | [address], | | | | | | [place] [address] | | | | + + + + + + | Bacteria, | NONE SEENComment: | | EXTERNAL | | | UA | CULTURE TO FOLLOWTesting | | LAB | | | | performed at [facility], [address] | | | | | | [address], | | | | | | [place] [address] | | | | + + + + + + | HYALINE | NONE SEENComment: | | EXTERNAL | | | CASTS UA | Testing performed at | | LAB | | | | [facility], [address] | | | | | | [place] | | | | | | [address] | | | | + + + [...] | | | | | | ACUTE [place] Testing | | | | | | performed at [facility] | | | | | | [facility];[place], [place] | | | | | | [address] [...] | | Testing performed at [facility];[address] [place] [address];[place] [address] MRSA PCR | | | NEGATIVE Testing performed at | | | [address];[place] [address] | | + + + + +---------+ [...] | | | performed at [facility] | | | | | | [address];[place] | | | | | | [address] | | | | + + + [...] LAB | | | | [facility];[address];[place] [address] | | | | + + + + + + | RED CELL | 4.56Comment: Testing | 3.70 - 5.10 | EXTERNAL | | | COUNT | performed at [facility];888 | M/uL | LAB | | | | [address];[place] | | | | | | [address] | | | | + + + + + + | Hgb | 14.5Comment: Testing | 11.3 - 15.5 | EXTERNAL | | | | performed at [facility];888 | g/dL | LAB | | | | [address];[place] | | | | | | [address] | | | | + + + + + + | Hematocrit, | 43.4Comment: Testing | 34.0 - 46.0 % | EXTERNAL | | | POC | performed at [facility];[address] | | LAB | | | | [address];[place] | | | | | | [address] | | | | + + + + + + | MCV | 95.2Comment: Testing | 80.0 - 100.0 fl | EXTERNAL | | | | performed at [facility];[address] | | LAB | | | | [address];[place] | | | | | | [address] | | | | + + + + + + | MCH | 31.8Comment: Testing | 27.0 - 34.0 pg | EXTERNAL | | | | performed at [facility];[address] | | LAB | | | | [address];[place] | | | | | | [address] | | | | + + + + + + | MCHC | 33.4Comment: Testing | 32.0 - 35.5 | EXTERNAL | | | | performed at [facility];888 | g/dL | LAB | | | | [address];[place] | | | | | | [address] | | | | + + + + + + | RDW-CV | 53.4 (H)Comment: Testing | 37 - 53 fl | EXTERNAL | | | | performed at [facility];[address] | | LAB | | | | [address];[place] | | | | | | [address] | | | | + + + + + + | Platelet | 335Comment: Testing | 150 - 400 K/uL | EXTERNAL | | | Count | performed at [facility];[address] | | LAB | | | Plasma | [address];[place] | | | | | | [address] | | | | + + + + + + | MPV | 7.8Comment: Testing | fl | EXTERNAL | | | | performed at [facility];[address] | | LAB | | | | [address];[place] | | | | | | [address] | | | | + + + + + + | Differentia | AUTOMATEDComment: | | EXTERNAL | | | l Type | Testing performed at | | LAB | | | | [facility];[address];[place] [address] | | | | + + + + + + | % Segmented | 68.15Comment: Testing | % | EXTERNAL | | | | performed at [facility];[address] | | LAB | | | Neutrophils | [address];[place] | | | | | | [address] | | | | + + + + + + | % | 21.73Comment: Testing | % | EXTERNAL | | | Lymphocytes | performed at [facility];[address] | | LAB | | | | [address];[place] | | | | | | [address] | | | | + + + + + + | % Monocytes | 9.37Comment: Testing | % | EXTERNAL | | | | performed at [facility];[address] | | LAB | | | | [address];[place] | | | | | | [address] | | | | + + + + + + | % | 0.18Comment: Testing | % | EXTERNAL | | | Eosinophils | performed at [facility];[address] | | LAB | | | | [address];[place] | | | | | | [address] | | | | + + + + + + | % Basophils | 0.57Comment: Testing | % | EXTERNAL | | | | performed at [facility];[address] | | LAB | | | | [address];[place] | | | | | | [address] | | | | + + + + + + | Absolute | 13.33 (H)Comment: | 1.90 - 7.40 | EXTERNAL | | | Segmented | Testing performed at | K/uL | LAB | | | Neutrophils | [facility];[address];[place] [address] | | | | + + + + + + | Absolute | 4.25 (H)Comment: Testing | 1.00 - 3.90 | EXTERNAL | | | Lymphocytes | performed at [facility];888 | K/uL | LAB | | | | [address];[place] | | | | | | [address] | | | | + + + + + + | Absolute | 1.83 (H)Comment: Testing | 0.00 - 0.80 | EXTERNAL | | | Monocytes | performed at [facility];888 | K/uL | LAB | | | | [address];[place] | | | | | | [address] | | | | + + + + + + | Absolute | 0.04Comment: Testing | 0.00 - 0.50 | EXTERNAL | | | Eosinophils | performed at [facility];888 | K/uL | LAB | | | | [address];[place] | | | | | | [address] | | | | + + + + + + | Absolute | 0.11 (H)Comment: Testing | 0.00 - 0.10 | EXTERNAL | | | Basophils | performed at [facility];888 | K/uL | LAB | | | | [address];[place], [place] | | | | | | [address] | | | | + + + [...] | | | performed at [facility];88 | | LAB | | | | [address];[place] | | | | | | [address] | | | | + + + [...] | | | performed at [facility];888 | | LAB | | | | [address];[place] | | | | | | [address] | | | | + + + [...] | | | performed at [facility];888 | mmol/L | LAB | | | | [address];[place], [place] | | | | | | [address] | | | | + + + + + + | K | 3.1 (L)Comment: Testing | 3.5 - 4.9 | EXTERNAL | | | | performed at [facility];888 | mmol/L | LAB | | | | [address];[place] | | | | | | [address] | | | | + + + + + + | Cl | 101Comment: Testing | 99 - 109 mmol/L | EXTERNAL | | | | performed at [facility];[address] | | LAB | | | | [address];[place] | | | | | | [address] | | | | + + + + + + | CO2 | 26Comment: Testing | 23 - 32 mmol/L | EXTERNAL | | | | performed at [facility];[address] | | LAB | | | | [address];[place] | | | | | | [address] | | | | + + + + + + | Anion Gap | 12Comment: Testing | 5 - 20 mmol/L | EXTERNAL | | | | performed at [facility];[address] | | LAB | | | | [address];[place] | | | | | | [address] | | | | + + + + + + | Glucose, | 109 (H)Comment: Testing | 65 - 99 mg/dL | EXTERNAL | | | Fasting | performed at [facility];[address] | | LAB | | | | [address];[place] | | | | | | [address] | | | | + + + + + + | BUN | 9Comment: Testing | 8 - 25 mg/dL | EXTERNAL | | | | performed at [facility];[address] | | LAB | | | | [address];[place] | | | | | | [address] | | | | + + + + + + | Creatinine | 0.69Comment: Testing | 0.50 - 1.00 | EXTERNAL | | | | performed at [facility];888 | mg/dL | LAB | | | | [address];[place] | | | | | | [address] | | | | + + + + + + | BUN/Creatin | 12Comment: Testing | | EXTERNAL | | | ine Ratio | performed at [facility] | | LAB | | | | Torsten Loredo;[place] | | | | | | [id number] | | | | + + + + + + | Calcium | 8.5Comment: Testing | 8.5 - 10.5 | EXTERNAL | | | | performed at [facility] [place] | mg/dL | LAB | | | | Torsten Loredo;[place] | | | | | | [address] | | | | + + + [...] | | | | at [facility] [place];[address] | | | | | | Gertrude;[place] [address] | | | | + + + [...]
--- OUTSIDE RECORDS SUMMARY | ~2019-03-09 | XMS | Encounter Summary ---
Demographics + + + | Address | [address] | | | [place] [address] | + + + | Home Phone | | + + + | Preferred Language | Unknown | + + + | Marital Status | | + + + | Faith Affiliation | NRP | + + + [...] [place], [place] | | | | | [address] | | + + + + + | Cami Sawyer | ECON | Unknown | | + + + + + Care Team Providers + +------+ + | Care Nurse Obgyn Name | Role | Phone | + [...] RE-OPEN LAPAROTOMY, | | 2015 | | [facility] | [address] | evacuation of | | | | Admitting Desk | [address] | hematoma, control of | | | | Located on the 9 | [place], [place] | retroperitonieal | | | | floor [address] [facility] | [address] | hemorage, lysis of | | | | [address] | [phone] | adhesions, wound vac | | | | [place], [place] | | placement, and | | | | [phone] | | abdominal wall | | | [...] different f rom the original. [facility] DEPARTMENT OF SURGERY EMERGENCY GENERAL [...] continued to progress and is discharged to [facility] for [facility] care. Mackenzie Hartley is discharged in stable [...] different f rom the original. [facility] DEPARTMENT OF SURGERY EMERGENCY [...] s while anticoagulated with warfarin transferred to [facility] from [facility] for hanh gement of retroperitoneal bleed. 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 S [...] thrombosis while anticoagulated with warfarin transferred to [facility] from [facility] for management of retroperitoneal bleed. She [...] know if she wants to see the [facility] GI team - Stage [...] recommending VIBRA since would be close to [facility] and she would benefit [...] with complication 03/12/2012 Jean-Claude Albrecht D.M.D., M.D. [facility] 10A [address] [facility] [place] [phone] This assessment and plan was formulated both [...] MD - 05/11/2014 8:51 AM PST . 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 S [...] thrombosis while anticoagulated with warfarin transferred to [facility] from [facility] for management of retroperitoneal bleed. She [...] know if she wants to see the [facility] GI team - Stage [...] recommending VIBRA since would be close to [facility] and she would benefit [...] with complication 03/12/2012 Jean-Claude Albrecht D.M.D., M.D. [facility] [address] [facility] [place] [address] This assessment and plan was formulated both [...] being active. Pt's has been at the [facility] supporting her. Pt is not taoism but appreciates support. Intervention: Provided a listening presence and explored pt's anxieties, worries and hopes. Plan: Spiritual care remains available. 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 S [...] thrombosis while anticoagulated with warfarin transferred to [facility] from [facility] for management of retroperitoneal bleed. She [...] know if she wants to see the [facility] GI team - Stage [...] recommending JJ since would be close to [facility] and she would benefit for marcela olsone [...] intestine with complication 03/12/2012 ANDREW VINCENT MD [facility] [address]A [address] [facility] [place] [address] This assessment and plan was formulated both independently and in conjunction with the [facility] Team as well as the attending provider of record above regarding management of this strar ent and their medical issues. It is [...] note might be different from the [facility]. 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 S [...] thrombosis while anticoagulated with warfarin transferred to [facility] from [facility] for management of retroperitoneal bleed. She [...] know if she wants to see the [facility] GI team - Stage [...] recommending SONIAA since would be close to [facility] and she would benefit [...] intestine with complication 03/12/2012 ANDREW VINCENT MD [facility] [address] [facility] [place] [address] This assessment and plan was [...] be different from the orig [facility]. 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 S [...] TROPONIN Imaging No new Cultures BLOOD CULTURE [facility] (no units) Date Value [...] thrombosis while anticoagulated with warfarin transferred to [facility] from [facility] for management of retroperitoneal bleed. She [...] know if she wants to see the [facility] GI team - Stage [...] recommending SONIAA since would be close to [facility] and she would benefit for marcela robles [...] intestine with complication 03/12/2012 ANDREW VINCENT MD [facility] [address] [place] [address] This assessment and plan was formulated both [...] this note might be different from the [facility] Department of Surgery Progress Note Author: Andrew Vincent MD General Surgery Resident Attending Physician: Jf Wiseman MD GENERAL SURGERY Progress Note: Hospital Day #: 14 ATTENDING: Jf Wiseman MD Identification: Mackenzie Hartley is a 58 year old female with COPD, Crohn's disease, chronic pa in, and 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 S [...] TROPONIN Imaging No new Cultures BLOOD CULTURE [facility] (no units) Date Value [...] thrombosis while anticoagulated with warfarin transferred to [facility] from [facility] for management of retroperitoneal bleed. 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 S [...] TROPONIN Imaging No new Cultures BLOOD CULTURE [facility] (no units) Date Value [...] thrombosis while anticoagulated with warfarin transferred to [facility] from [facility] for management of retroperitoneal bleed. She [...] continued DHT,TF - Diet: NPO - per DELIVERY CONSULTANT, high risk of aspiration - continue ice [...] intestine with complication 03/12/2012 ANDREW VINCENT MD [facility] [address]A [address] [place] [address] This assessment and plan was [...] be different from the orig 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 S [...] TROPONIN Imaging No new Cultures BLOOD CULTURE [facility] (no units) Date Value [...] thrombosis while anticoagulated with warfarin transferred to [facility] from [facility] for management of retroperitoneal bleed. She [...] intestine with complication 03/12/2012 ANDREW VINCENT MD [facility] [address]A [address] [place] [address] This assessment and plan was formulated both [...] the resident s note. PHIL VARMA MD [facility] [address] [facility] [place] [address] Rosa Sauer MD - 05/04/2014 8:26 AM [...] at referring hospital. She was transferred to [facility] f or active hemorrhage and underwent [...] rounds. Rosa Reynoso, R2 SICU/Trauma Personal pager: [phone] Team pager: [phone] Angeles Acevedo MD - 05/04/2014 7:08 AM PST [facility] DEPARTMENT OF SURGERY EGS ICU Progress Note Division of Trauma and Critical Care ID: Mackenzie Hartley is a 58 year old female with COPD, Crohn's disease, chronic pain, and 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 while anticoagulated with warfarin transferre d to [facility] from [facility] for management of retroperitoneal bleed. She [...] liquid 8.8 mg, 5 mL, oral, BID, Bartool Thacker MD, 8.8 mg at 05/03/14 0904 [...] thrombosis while anticoagulated with warfarin transferred to [facility] from [facility] for management of retroperitoneal bleed. She has required repeated transfers to ICU for respiratory status. She has been diuresed ap propriately while in the ICU and O2 needs have decreased significantly. Will transfer to [facility] [place] [facility] or, but need to keep a [...] Hannah MD General Surgery Resident, R3 Pager [phone] [facility] [address] [place] [address] Jf Jones MD - 05/03/2014 9:38 AM [...] - TF at goal, + BM Dysphagia: DELIVERY CONSULTANT following- remains NPO Anasarca: compression socks,. Goal [...] Call team 01/11 for questions: Team Pager [phone] ATTENDING ADDENDUM: I saw and examined Mackenzie [...] Erin Christensen PA-C. Jf Wiseman MD FACS non destructive testing specialist Division of Trauma, Critical Care, and Acute Care Surgery [phone] Elda Emmanuel MD - 05/03/2014 3:49 AM PST EMERGENCY GENERAL SURGERY ICU PROGRESS NOTE: Attending Physician: Jf Wiseman MD 05/03/2014 ID: Mackenzie Hartley is a 58 year old female with COPD, Crohn's disease, chronic pain, and coagulopa thy resulting in splenic artery thrombosis while anticoagulated with warfarin transferred to [facility] from [facility] for management of retroperitoneal bleed. She [...] thrombosis while anticoagulated with warfarin transferred to [facility] from [facility] for management of retroperitoneal bleed. 1. [...] this patient encounter. Elda Glez MD Pager [phone] Plastic Surgery R2 [facility] Diagnoses: 555.2 Crohn's disease of [...] holding Q6W Remicade- will consult hematology in [facility] week regarding of timing of resuming remicade Severe malnutrition: - TF at goal, + BM, Dysphagia: DELIVERY CONSULTANT following- remains NPO Anasarca: compression socks,. Goal [...] Call team 01/11 for questions: Team Pager [phone] ATTENDING ADDENDUM: I saw and examined Mackenzie [...] Marge Harris PA-C. Jf Wiseman MD FACS non destructive testing specialist Division of Trauma, Critical Care, and Acute Care Surgery [phone] ngeles Hannah MD - 05/02/2014 6:55 AM PST [facility] DEPARTMENT OF SURGERY EGS ICU Progress Note Division of Trauma and Critical Care ID: Mackenzie Hartley is a 58 year old female with COPD, Crohn's disease, chronic pain, and 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 while anticoagulated with warfarin transferre d to [facility] from [facility] for management of retroperitoneal bleed. She [...] thrombosis while anticoagulated with warfarin transferred to [facility] from [facility] for management of retroperitoneal bleed. Neuro: [...] Hannah MD General Surgery Resident, R3 Pager [phone] [place] [address] Kristina, Angeles Hanna MD - 05/02/2014 2:14 [...] Hannah MD General Surgery Resident, R3 Pager [phone] Jean-Claude Chaidez DMD, MD - 05/01/2014 10:[address] [facility] DEPARTMENT OF SURGERY EGS Progress Note ID: Mackenzie Hartley is a 58 year old female with COPD, Crohn's disease, chronic pain, and 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 while anticoagulated with warfarin transferre d to [facility] from [facility] for management of retroperitoneal bleed. She [...] thrombosis while anticoagulated with warfarin transferred to [facility] from [facility] for management of retroperitoneal bleed. Overall, she is improving. However, remains tachycardic with leukocytosis - WBC [address] 05/01 showed - moderate ascites and pleural effusions and hematoma. Neuro: dilaudid IV PRN Speech: following continue daily to eval swallow CV: HD stable L OUTSIDE SALES ACCOUNT REPRESENTATIVE PSA resolved Continue IV lasix today 20 [...] D.M.D., M.D. [facility] [place] [address] [place] [address] Jf Jones MD - 04/30/2014 11:08 AM [...] at referring hospital. She was transferred to [facility] fo r active hemorrhage and underwent [...] malnutrition: - pulled DHT- refusing replacement. Await DELIVERY CONSULTANT eval if passes swallow will give chance to prove adequate po intake. Expect will require TFs again Dysphagia: await DELIVERY CONSULTANT eval today. Cont meds and feed via [...] Call team 01/11 for questions: Team Pager [phone] ATTENDING ADDENDUM: I saw and examined Mackenzie [...] Marge Harris PA-C. Jf Wiseman MD FACS non destructive testing specialist Division of Trauma, Critical Care, and Acute Care Surgery [phone] Angeles Acevedo MD - 04/30/2014 1:18 AM PST [facility] DEPARTMENT OF SURGERY EGS ICU Progress Note Division of Trauma and Critical Care ID: Mackenzie Hartley is a 58 year old female with COPD, Crohn's disease, chronic pain, and 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 while anticoagulated with warfarin transferre d to [facility] from [facility] for management of retroperitoneal bleed. She [...] thrombosis while anticoagulated with warfarin transferred to [facility] from [facility] for management of retroperitoneal bleed. Overall, she is improving. However, remains tachycardic with leukocytosis -- difficult to t ease out if this is secondary to asplenia. Will obtain CT abd pelvis today to clarify. Neuro: dilaudid IV PRN and intermittent versed for sedation CV: HD stable L OUTSIDE SALES ACCOUNT REPRESENTATIVE PSA resolved Pulm: titrate to O2 >92% [...] Hannah MD General Surgery Resident, R3 Pager [phone] [facility] [address] [place] [address] Aravind Morales MD - 04/29/2014 11:43 AM PSTICU Attending: I saw and examined Mackenzie Hartley ([id number]) with Erin Christensen PA-C on 04/29/14 and [...] documented by valentin HASTINGS. Aravind Massey MD [employer] Trauma, Critical Care & Acute Care Surgery [...] at referring hospital. She was transferred to [facility] fo r active hemorrhage. Hospital Day [...] resolving cont current H2O via DHT Dysphagia: DELIVERY CONSULTANT consulted, ice chips only. Cont meds and [...] Call team 01/11 for questions: Team Pager [phone] Chelly Blum MD,M PH - 04/28/2014 3:03 [...] at referring hospital. She was transferred to [facility] fo r active hemorrhage. Hospital Day [...] Hyernatremia: resolving, reduce H2O to 30ml/hr Dysphagia: DELIVERY CONSULTANT consulted, ice chips only. Cont meds and [...] Call team 01/11 for questions: Team Pager [phone] Angeles Acevedo MD - 04/28/2014 5:18 AM PST [facility] DEPARTMENT OF SURGERY EGS ICU Progress Note Division of Trauma and Critical Care ID: Mackenzie Hartley is a 58 year old female with COPD, Crohn's disease, chronic pain, and 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 while anticoagulated with warfarin transferre d to [facility] from [facility] for management of retroperitoneal bleed. She is s/p ex lap, splenectomy, and packing with lap pads at OSH and from reopening of laparotomy, evacua tion of 2-3 L of intraabdominal hematoma, closure of open abdomen SUBJECTIVE: Extubated, neurologically doing much better. 3 L NC Underwent successful thrombin injection of L OUTSIDE SALES ACCOUNT REPRESENTATIVE pseudoaneurysm by IR 04/26 MEDICATIONS: Current facility-administered [...] Units, 80 Units/kg, intravenous, NEEDED (REBECA DAVID), iNthya Bailey MD, 7,050 Units at 04/27/141401 heparin [...] thrombosis while anticoagulated with warfarin transferred to [facility] from [facility] for management of retroperitoneal bleed. Neuro: dilaudid IV PRN and intermittent versed for sedation CV: HD stable Per vascular: arterial duplex of L OUTSIDE SALES ACCOUNT REPRESENTATIVE to assess for stability of PSA shows [...] Hannah MD General Surgery Resident, R3 Pager [phone] [facility] [address] [address] Xin Irizarry M D - 04/27/2014 11:55 [...] imaging and laboratory study results EPIC DEPARTMENT: [id number] - HEM FACULTY [facility] Place of Service: - Inpatient Date of Service: 04-27-2014 Modifiers: GC - Resident Involved Suggested CPT: 19820 - Initial, Comp; Mod complex 50 min XIN AGEE MD [facility] [address] [place] [address] wRudy powers Do - 04/27/2014 11:55 AM PST Hematology Consult Progress Note Primary Service: EGS Primary Attending: Jf Wiseman MD Hospital Length of Stay: 4 Interval Events: - extubated - thrombin injection to OUTSIDE SALES ACCOUNT REPRESENTATIVE pseudoaneurysm - heparin gtt started last night Subjective: Patient is unable to provide history as she remains encephalopathic. Did speak with her , who confirmed history obtained in initial heme consult note. States she givens s been on warfarin since her 2011 [facility] admission with no known [...] assessme nt and plan. Rudy Sarmiento, DO [facility] Internal Medicine PGY3 Pager [phone] Mirela Josue MD - 04/27/2014 10:49 AM PST [facility] Department of Surgery Progress [...] underwent successful thrombin injection of the left OUTSIDE SALES ACCOUNT REPRESENTATIVE pseudoaneurysm by IR last night. Heparin restarted [...] ultraso und guided thrombin injection of left OUTSIDE SALES ACCOUNT REPRESENTATIVE pseudoanuerysm. Will order arterial duplex of left OUTSIDE SALES ACCOUNT REPRESENTATIVE to assess for stability of pseudoaneurysm Monitor [...] - hemorrhage vs HCAP LUCY MARKS MD [facility] [address] [place] [address] This assessment and plan was formulated both independently and in conjunction with the [facility] ular Surgery Team as well as the attending provider of record above regarding management of this patient and their medical issues. It is accurate to the best of my knowledge, and is s ubject to modification based on clinical developments, new data, or final imaging results. [facility] staff I saw and evaluated the patient. I agree with the findings and the plan of care as jannie hair in the resident s note. Left femoral pseudoaneurysm appears resolved. [facility] No further imaging required unless clinical status changes. Mirela Thompson M.D. [facility] Vascular Surgery [address] [facility] [place] [address] Email: [email or web address] Jf Jones MD - 04/27/2014 8:03 AM [...] at referring hospital. She was transferred to [facility] fo r active hemorrhage. Hospital Day [...] H2O Hyernatremia: water 100ml/hr via DHT Dysphagia: DELIVERY CONSULTANT consulted, ice chips only JULIANE: ATN from [...] Call team 01/11 for questions: Team Pager [phone] ATTENDING ADDENDUM: I saw and examined Mackenzie [...] Erin Christensen PA-C. Jf Wiseman MD FACS non destructive testing specialist Division of Trauma, Critical Care, and Acute Care Surgery [phone] ankerElda MD - 04/27/2014 4:52 AM PST EMERGENCY GENERAL SURGERY ICU PROGRESS NOTE: Attending Physician: Jf Wiseman MD 04/27/2014 ID: Mackenzie Hartley is a 58 year old female with COPD, Crohn's disease, chronic pain, and coagulopa thy resulting in splenic artery thrombosis while anticoagulated with warfarin transferred to [facility] from [facility] for management of retroperitoneal bleed. She [...] HR EVENTS: - Incidentally found to have OUTSIDE SALES ACCOUNT REPRESENTATIVE pseudoaneurysm, injected with thrombin by IR - [...] thrombosis while anticoagulated with warfarin transferred to [facility] from [facility] for management of retroperitoneal bleed. Neuro: [...] this patient encounter. Elda Glez MD Pager [phone] Plastic Surgery R2 [facility] Diagnoses: 555.2 Crohn's disease of [...] Attending:Dr. Lenny Calhoun MD (Fellow)/pager: Dr. Vang [phone] Medications Procedure Meds: Dilaudid IV 0.5mg Midazolam [...] at referring hospital. She was transferred to [facility] fo r active hemorrhage. Hospital Day [...] Call team 01/11 for questions: Team Pager [phone] Angeles Acevedo MD - 04/26/2014 5:24 AM PST [facility] DEPARTMENT OF SURGERY EGS ICU Progress Note Division of Trauma and Critical Care ID: Macknezie Hartley is a 58 year old female with COPD, Crohn's disease, chronic pain, and 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 while anticoagulated with warfarin transferre d to [facility] from [facility] for management of retroperitoneal bleed. She [...] 110 mg total salt, feeding tube, DAILY, Chrsi Harris PA-C, 25 mg elemental at 04/25/14 [...] thrombosis while anticoagulated with warfarin transferred to [facility] from [facility] for management of retroperitoneal bleed. Neuro: [...] for 5 days. Dispo: continue critical care. Anglees Hannah MD General Surgery Resident, R3 Pager [phone] [facility] & [address] [place] [address] Nithya Andres MD - 04/25/2014 6:40 AM PSTTSICU Attending 04/25/14 58 yo woman critically ill with complex surgical and medical history, transferred to [facility] w ith intraabdominal and retroperitoneal hemorrhage 2 [...] agree with their assessment and plan. Marge Jenikns PA-C - 04/25/2014 6:40 AM PST . [...] Call team 01/11 for questions: Team Pager [phone] Angeles Acevedo MD - 04/25/2014 4:39 AM PST [facility] [place] DEPARTMENT OF SURGERY EGS ICU Progress Note Division of Trauma and Critical Care ID: Mackenzie Hartley is a 58 year old female with COPD, Crohn's disease, chronic pain, and 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 while anticoagulated with warfarin transferre d to [facility] from [facility] for management of retroperitoneal bleed. She [...] nystatin (MYCOSTATIN) cream, , topical, QID PRN, Gayarti Christensen PA-C oxyCODONE (immediate release) (ROXICODONE) tablet [...] thrombosis while anticoagulated with warfarin transferred to [facility] from [facility] for management of retroperitoneal bleed. Neuro: [...] Hannah MD General Surgery Resident, R3 Pager [phone] [facility] [place] [address] [facility] [id number] ich Redding MD - 04/24/2014 9:21 AM [...] extubate Initial surgical contact: Miladis at pager [phone] Nithya Andres MD - 04/24/2014 5:25 AM [...] exploration at referring hospital. IR embolization at [facility]. 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 She [...] thrombosis while anticoagulated with warfarin transferred to [facility] from [facility] for management of retroperitoneal bleed. She [...] Hannah MD General Surgery Resident, R3 Pager [phone] [facility] [place] [address] [place] [address] Rudy Parker M D - 04/23/2014 5:07 PM PSTBRIEF INTERVENTIONAL RADIOLOGY PROCEDURE NOTE DATE: 04/23/2014 5:07 PM PROCEDURE: Pelvic angiography with glue embolization PRE-PROCEDURE DIAGNOSIS: Retroperitoneal hematoma POST-PROCEDURE DIAGNOSIS: Same IR STAFF: Lenny IR FELLOW: Ciera ACCESS: L OUTSIDE SALES ACCOUNT REPRESENTATIVE MEDICATIONS: Fentanyl IV 150 mcg Midazolam IV [...] | + + + + + | [facility] | [address] | [place] [address] | | | SERVICESJANLEL | [address] | | | + [...] MARILYN | [address] | [place], [place] | | | [facility] | [facility] | [address] | | | TESTS | | | [...] [facility] | [address] | [place] [address] | | | SERVICES, CORE | PARK [...] [facility] | [address] | [place] [address] | | | SERVICES, CORE | [address] [...] | | | LABORATORY | | | [place] | | | SERVICES, | | | [...] [facility] | [address] | [place] [address] | | | SERVICES, CORE | [address]TRAM [...] [facility] | [address] | [place], [place] | | | [facility] | [address] | [address] | | | TESTS | | | [...] - [facility] | [address] | [place], [place] | | | [facility] | [address] | [address] | | | TESTS | | | [...] [facility] | [address] | [place] [address] | | | SERVICES, CORE | [address] | | | + + + + + MAGNESIUM, PLASMA (05/12/2014 1:07 AM PST) + +---------+ + + + | Component | Value | Ref Range | Performed | Pathologist | | | | | At | Signature | + +---------+ + + + | MAGNESIUM,P | 1.5 (L) | 1.8 - 2.5 mg/dL | [facility] | | | JFMA [...] | + + + + + | [facility] | [address] | [place] [address] | | | SERVICES, CORE | PARK [...] | | | LABORATORY | | | [place] | | | SERVICES, | | | [...] the MDRD equation recommended by the | [facility] | | National Kidney [...] | + + + + + | [facility] | [address] | [place] [address] | | | JANELL SHARP | [address] [...] | + + + + + | [facility] | [address] | [place] [address] | | | SERVICES, JANELL | [address] [...] MARILYN | [address] | [place], [place] | | | [facility] | [facility] | [address] | | | TESTS | | | [...] (H) | 60 - 99 mg/dL | [facility] - | | | [...] [facility] | [address] | [place], [place] | | | [facility] | [address] | [address] | | | TESTS | | | [...] | + + + + + | [facility] | [address] | [place] [address] | | | SERVICES, CORE | PARK [...] [facility] | [address] | [place] [address] | | | SERVICES, CORE | [address] [...] | | | LABORATORY | | | [place] | | | SERVICES, | | | [...] the MDRD equation recommended by the | [facility] | | National Kidney [...] | + + + + + | [facility] | [address] | [place] [address] | | | SERVICES, CORE | PARK [...] [facility] | [address] | [place] [address] | | | SERVICESJANELL | [address] [...] - [facility] | [address] | [place], [place] | | | [facility] | [address] | [address] | | | TESTS | | | [...] SANDERS | [address] | [place], [place] | | | [facility] | [address] | [address] | | | TESTS | | | [...] | | + +---------+ + + | [facility] DEPARTMENT OF | | [...] [facility] | [address] | [place], [place] | | | [facility] | [address] | [address] | | | TESTS | | | [...] - DAVIDAM | [address] | [place], [place] | | | [facility] | [address] | [address] | | | TESTS | | | [...] [facility] | [address] | [place] [address] | | | SERVICES, CORE | [address] | | | + + + + + MAGNESIUM, PLASMA (05/10/2014 3:39 AM PST) + +---------+ + + + | Component | Value | Ref Range | Performed | Pathologist | | | | | At | Signature | + +---------+ + + + | MAGNESIUM,P | 1.4 (L) | 1.8 - 2.5 mg/dL | [facility] | | | LASMA [...] [facility] | [address] | [place] [address] | | | SERVICES, CORE | PARK [...] | | | LABORATORY | | | [place] | | | SERVICES, | | | [...] the MDRD equation recommended by the | [facility] | | National Kidney [...] | + + + + + | [facility] | [address] | [place] [address] | | | JANELL SHARP | [address] [...] | + + + + + | [facility] | [address] | [place] [address] | | | SERVICES, JANELL | [address] [...] MARILYN | [address] | [place], [place] | | | [facility] | [facility] | [address] | | | TESTS | | | [...] (H) | 60 - 99 mg/dL | [facility] - | | | [...] SANDERS | [address] | [place], [place] | | | [facility] | [facility] | [address] | | | TESTS | | | [...] MARILY[facility] | [address] | [place], [place] | | | [facility] | [address] | [address] | | | TESTS | | | [...] | + + + + + | [facility] | [address] | [place] [address] | | | SERVICES, CORE | [address] [...] [facility] | [address] | [place] [address] | | | JANELL SHARP | [address] [...] | | | LABORATORY | | | [place] | | | SERVICES, | | | [...] [facility] | [address] | [place] [address] | | | SERVICES, CORE | PARK [...] | + + + + + | [facility] | [address] | [place] [address] | | | SERVICES, CORE | [address] [...] (H) | 60 - 99 mg/dL | [facility] - | | | [...] S[facility]ERS | [address] | [place], [place] | | | [facility] | [address] | [address] | | | TESTS | | | [...] [facility] | [address] | [place], [place] | | | [facility] | [address] | [address] | | | TESTS | | | [...] [facility] | [address] | [place] [address] | | | SERVICES, CORE | [address]TR[address] [...] [facility] | [address] | [place] [address] | | | SERVICES, CORE | [address] [...] | | | LABORATORY | | | [place] | | | SERVICES, | | | [...] [facility] | [address] | [place] [address] | | | SERVICES, CORE | [address] [...] [facility] | [address] | [place] [address] | | | SERVICES, CORE | PARK [...] (H) | 60 - 99 mg/dL | [facility] - | | | [...] SANDERS | [address] | [place], [place] | | | [facility] | [facility] | [address] | | | TESTS | | | [...] - MARQU[facility] | [address] | [place], [place] | | | [facility] | [facility] | [address] | | | TESTS | | | [...] [facility] | [address] | [place] [address] | | | ARON, CORE | [address] [...] [facility] | [address] | [place] [address] | | | SERVICES, CORE | PARK [...] | | | LABORATORY | | | [place] | | | SERVICES, | | | [...] [facility] | [address] | [place] [address] | | | SERVICES, CORE | [address] [...] | + + + + + | [facility] | [address] | [place] [address] | | | SERVICES, CORE | [address] [...] [facility] | [address] | [place], [place] | | | [facility] | [address] | [address] | | | TESTS | | | [...] [facility] | [address] | [place] [address] | | | ARON, JANELL | [address] [...] (H) | 60 - 99 mg/dL | [facility] - | | | [...] [facility] | [address] | [place], [place] | | | [facility] | [facility] | [address] | | | TESTS | | | [...] [facility] | [address] | [place], [place] | | | [facility] | [address] | [address] | | | TESTS | | | [...] | + + + + + | [facility] | [address] | [place] [address] | | | SERVICES, CORE | [address] [...] [facility] | [address] | [place] [address] | | | ARON, JANELL | PARK [...] | | | LABORATORY | | | [place] | | | SERVICES, | | | [...] [facility] | [address] | [place] [address] | | | SERVICES, CORE | PARK [...] [facility] | [address] | [place] [address] | | | SERVICES, CORE | PARK [...] LABORATORY | [address] | [place] [address] | | | SERVICES, CORE | PARK [...] | + + + + + | [facility] | [address] | [place] [address] | | | SERVICES, CORE | B[address]TRAM [...] [facility] | [address] | [place] [address] | | | SERVICES, CORE | PARK [...] | | | LABORATORY | | | [place] | | | SERVICES, | | | [...] [facility] | [address] | [place] [address] | | | SERVICES, CORE | PARK [...] | + + + + + | [facility] | [address] | [place] [address] | | | SERVICES, CORE | [address] [...] + + + + | [facility] | [address] | [place] [address] | | | [facility] | Ellen [...] [facility] | [address] | [place] [address] | | | SERVICES, JANELL | PARK [...] [facility] | [address] | [place] [address] | | | SERVICES, CORE | BERTRAM [...] [facility] | [address] | [place] [address] | | | SERVICES, CORE | [address] [...] [facility] | [address] | [place] [address] | | | SERVICES, CORE | PARK [...] | | | LABORATORY | | | [place] | | | SERVICES, | | | [...] [facility] | [address] | [place] [address] | | | SERVICES, CORE | PARK [...] [facility] | [address] | [place] [address] | | | SERVICES, CORE | PARK [...] [facility] | [address] | [place] [address] | | | SERVICES, CORE | PARK [...] [facility] | [address] | [place] [address] | | | SERVICES, CORE | B[address]TRAM [...] [facility] | [address] | [place] [address] | | | SERVICES, JANELL | [address] [...] | + + + + + | [facility] | [address] | [place] [address] | | | SERVICES, JANELL | [address] [...] [facility] | [address] | [place], [place] | | | [facility] | [address] | [address] | | | TESTS | | | [...] | + + + + + | [facility] | [address] | [place] [address] | | | SERVICES, CORE | PARK [...] | + + + + + | [facility] | [address] | [place] [address] | | | SERVICES, CORE | PARK [...] | | | LABORATORY | | | [place] | | | SERVICES, | | | [...] [facility] | [address] | [place] [address] | | | SERVICES, CORE | PARK [...] [facility] | [address] | [place] [address] | | | SERVICES, CORE | PARK [...] [facility] | [address] | [place] [address] | | | JANELL SHARP | PARK [...] | | | LABORATORY | | | [place] | | | SERVICES, | | | [...] [facility] | [address] | [place] [address] | | | SERVICES, CORE | PARK [...] | | | LABORATORY | | | [place] | | | SERVICES, | | | [...] | + + + + + | [facility] | [address] | [place] [address] | | | JANELL SHARP | [address] [...] [facility] | [address] | [place], [place] | | | THERAPY | [facility] | [address] | | + + + + + [...] [facility] | [address] | [place], [place] | | | THERAPY | [address] | [address] | | + + + + + [...] [facility] | [address] | [place] [address] | | | SERVICES, CORE | PARK [...] [facility] | [address] | [place] [address] | | | SERVICES, CORE | BERTRAM [...] [facility] | [address] | [place] [address] | | | SERVICES, JANELL | [address] [...] | | | LABORATORY | | | [place] | | | SERVICES, | | | [...] [facility] | [address] | [place] [address] | | | SERVICES, CORE | PARK [...] [facility] | [address] | [place] [address] | | | SERVICES, CORE | BERTRAM [...] DEPT OF | [address] | [place], [place] | | | CARDIOLOGY | [address] | [address] | | + + + + + X-RAY PORTABLE CHEST 1 VIEW (05/02/2014 2:11 AM PST) + + + + + + | Component | Value | Ref Range | Performed | Pathologist | | | | | At | Signature | + + + + + + | X-RAY | EXAM: HI CHEST 1 VIEW | | | | [...] | | + +---------+ + + | [facility] DEPARTMENT OF | | [...] | + + + + + | [facility] | [address] | [place] [address] | | | SERVICES, CORE | BERTRAM [...] [facility] | [address] | [place], [place] | | | [facility] | [address] | [address] | | | TESTS | | | [...] [facility] | [address] | [place], [place] | | | [facility] | [facility] | [address] | | | TESTS | | | [...] [facility] | [address] | [place] [address] | | | SERVICES, CORE | [address] | | | + + + + + X-RAY PORTABLE CHEST 1 VIEW (05/01/2014 3:37 AM PST) + + + + + + | Component | Value | Ref Range | Performed | Pathologist | | | | | At | Signature | + + + + + + | X-RAY | EXAM: HI CHEST 1 VIEW | | | | [...] Bilateral | | | | | | [id number] | | | | | | pleural [...] | + + + + + | [facility] | [address] | [place] [address] | | | SERVICES, CORE | PARK [...] [facility] | [address] | [place] [address] | | | SERVICES, JANELL | [address] [...] | | | LABORATORY | | | [place] | | | SERVICES, | | | [...] the MDRD equation recommended by the | [facility] | | National Kidney [...] | + + + + + | [facility] | [address] | [place] [address] | | | SERVICES, CORE | PARK [...] [facility] | [address] | [place] [address] | | | JANELL SHARP | BERTRAM [...] [facility] | [address] | [place], [place] | | | [facility] | [address] | [address] | | | TESTS | | | [...] | | + +---------+ + + | [facility] DEPARTMENT OF | | [...] + + + | X-RAY | STUDY: HI CHEST 1 VIEW | | | | [...] | + + + + + | [facility] | [address] | [place] [address] | | | SERVICES, CORE | PARK [...] | + + + + + | [facility] | [address] | [place] [address] | | | SERVICES, JANELL | [address] [...] [facility] | [address] | [place] [address] | | | SERVICES, CORE | [address] [...] | | | LABORATORY | | | [place] | | | SERVICES, | | | [...] [facility] | [address] | [place] [address] | | | SERVICES, CORE | [address] [...] | | | LABORATORY | | | [place] | | | SERVICES, | | | [...] | + + + + + | [facility] | [address] | [place] [address] | | | ARON, JANELL | BERTRAM [...] [facility] | [address] | [place], [place] | | | [facility] | [facility] | [address] | | | TESTS | | | [...] [facility] | [address] | [place] [address] | | | SERVICES, CORE | PARK [...] [facility] | [address] | [place] [address] | | | SERVICES, CORE | PARK [...] | | | LABORATORY | | | [place] | | | SERVICES, | | | [...] | + + + + + | [facility] | [address] | [place] [address] | | | SERVICES, CORE | [address] [...] | + + + + + | [facility] | [address] | [place] [address] | | | SERVICES, JANELL | [address] [...] [facility] | [address] | [place] [address] | | | [facility], JANELL | [address] | | | + + + + + CAPILLARY BLOOD GLUCOSE (NO CHG), POC (04/28/2014 8:17 AM PST) + +---------+ + + + | Component | Value | Ref Range | Performed | Pathologist | | | | | At | Signature | + +---------+ + + + | BLOOD | 146 (H) | 60 - 99 mg/dL | [facility] - | | | [...] [facility] | [address] | [place], [place] | | | [facility] | [facility] | [address] | | | TESTS | | | [...] [facility] | [address] | [place] [address] | | | SERVICES, CORE | PARK [...] [facility] | [address] | [place] [address] | | | SERVICES, CORE | PARK [...] [facility] | [address] | [place] [address] | | | SERVICES, CORE | PARK [...] [facility] | [address] | [place] [address] | | | SERVICES, CORE | PARK [...] | | | LABORATORY | | | [place] | | | SERVICES, | | | [...] [facility] | [address] | [place] [address] | | | SERVICES, CORE | [address] [...] [facility] | [address] | [place] [address] | | | ARON, CORE | [address] [...] | + + + + + | [facility] | [address] | [place] [address] | | | JANELL SHARP | BERTARM [...] | | + +---------+ + + | [facility] DEPARTMENT OF | | [...] [facility] | [address] | [place] [address] | | | SERVICES, CORE | BERTRAM [...] [facility] | [address] | [place], [place] | | | [facility] | [facility] | [address] | | | TESTS | | | | + + + + + X-RAY ABD LTD FEEDING TUBE EVAL PORTABLE (04/27/2014 10:33 AM PST) + + + + + + | Component | Value | Ref Range | Performed | Pathologist | | | | | At | Signature | + + + + + + | X-RAY ABD | STUDY: HI ABD LTD | | | | | [...] [facility] | [address] | [place] [address] | | | SERVICES, CORE | BERTRAM [...] [facility] | [address] | [place] [address] | | | JANELL SHARP | BERTRAM [...] [facility] | [address] | [place] [address] | | | SERVICES, CORE | BERTRAM [...] [facility] | [address] | [place] [address] | | | SERVICES, CORE | PARK [...] | | | LABORATORY | | | [place] | | | SERVICES, | | | [...] + + | [facility] | [address] | [place] [address] | | | SERVICES, CORE | BERTRAM [...] [facility] | [address] | [place] [address] | | | SERVICES, JANELL | BERTRAM [...] | + + + + + | [facility] | [address] | [place] [address] | | | SERVICES, CORE | BERTRAM [...] [facility] | [address] | [place] [address] | | | SERVICES, CORE | PARK [...] [facility] | [address] | [place] [address] | | | SERVICES, CORE | BERTRAM [...] | + + + + + | [facility] | [address] | [place] [address] | | | SERVICES, CORE | PARK [...] | | | LABORATORY | | | [place] | | | SERVICES, | | | [...] [facility] | [address] | [place] [address] | | | SERVICES, JANELL | BERTRAM [...] PRIMARY | | | | | | CLIENT RENEWAL SPECIALIST: Rudy | | | | | [...] [facility] | [address] | [place], [place] | | | [facility] | [address] | [address] | | | TESTS | | | [...] [facility] | [address] | [place] [address] | | | SERVICES, CORE | BERTRAM [...] | | | | | | [place] | | | | + + + [...] [facility] | [address] | [place] [address] | | | SERVICES, JANELL | BERTRAM [...] [facility] | [address] | [place] [address] | | | SERVICES, CORE | BERTRAM [...] [facility] | [address] | [place] [address] | | | SERVICES, CORE | BERTRAM [...] [facility] | [address] | [place] [address] | | | SERVICES, CORE | PARK [...] [facility] | [address] | [place] [address] | | | SERVICES, CORE | PARK [...] | | | LABORATORY | | | [place] | | | SERVICES, | | | [...] | + + + + + | [facility] | [address] | [place] [address] | | | ARON, JANELL | BERTRAM [...] [facility] | [address] | [place] [address] | | | SERVICES, CORE | PARK [...] | + + + + + | [facility] | [address] | [place] [address] | | | JANELL SHARP | PARK [...] - [facility] | [address] | [place], [place] | | | [facility] | [address] | [address] | | | TESTS | | | [...] | | | LABORATORY | | | [place] | | | SERVICES, | | | [...] [facility] | [address] | [place] [address] | | | JANELL SHARP | BERTRAM [...] [facility] | [address] | [place], [place] | | | [facility] | [address] | [address] | | | TESTS | | | [...] [facility]ARDNER | [address] | [place] [address] | | | SERVICES, CORE | BERTRAM [...] | + + + + + | [facility] | [address] | [place] [address] | | | SERVICES, CORE | BERTRAM [...] + + + + | PRODUCT | [id number] | | [facility] | | | UNIT [...] + + + + | BLOOD | [id number] | | [facility] | | | PRODUCT [...] DEPARTMENT OF | [address] | [place] [address] | | | PATHOLOGY | [address] [...] + + + + | PRODUCT | [id number] | | [facility] | | | UNIT [...] + + + + | BLOOD | [id number] | | [facility] | | | PRODUCT [...] | + + + + + | [facility] DEPARTMENT | [address] | [place] [address] | | | PATHOLOGY | [address] [...] [facility] | [address] | [place] [address] | | | SERVICES, CORE | PARK [...] [facility] [place] | [address] | [place] [address] | | | SERVICES, CORE | BERTRAM [...] | | | LABORATORY | | | [place] | | | SERVICES, | | | [...] the MDRD equation recommended by the | [facility] | | National Kidney [...] | + + + + + | [facility] | [address] | [place] [address] | | | JANELL SHARP | BERTRAM [...] [facility] | [address] | [place] [address] | | | SERVICES, CORE | PARK [...] [facility] | [address] | [place] [address] | | | SERVICES, CORE | PARK [...] [facility] | [address] | [place] [address] | | | SERVICES, CORE | PARK [...] | + + + + + | [facility] | [address] | [place] [address] | | | SERVICES, JANELL | BERTRAM [...] [facility] | [address] | [place], [place] | | | [facility] | [facility] | [address] | | | TESTS | | | [...] + + + | [facility] | [address] | [place], [place] | | | [facility] | [address] | [address] | | | TESTS | | | [...] | + + + + + | [facility] | [address] | [place] [address] | | | SERVICES, CORE | PARK [...] [facility] [place] | [address] | [place] [address] | | | JANELL SHARP | BERTRAM [...] | + + + + + | [facility] | [address] | [place] [address] | | | SERVICES, CORE | PARK [...] | + + + + + | [facility] | [address] | [place] [address] | | | JANELL SHARP | [address] | | | + + + + + X-RAY PORTABLE CHEST 1 VIEW (04/24/2014 5:32 AM PST) + + + + + + | Component | Value | Ref Range | Performed | Pathologist | | | | | At | Signature | + + + + + + | X-RAY | STUDY: HI CHEST 1 VIEW | | | | [...] | | + +---------+ + + | [facility] DEPARTMENT OF | | [...] [facility] | [address] | [place] [address] | | | SERVICES, JANELL | BERTRAM [...] | | | LABORATORY | | | [place] | | | SERVICES, | | | [...] | + + + + + | [facility] | [address] | [place] [address] | | | SERVICES, CORE | PARK [...] [facility] | [address] | [place] [address] | | | SERVICES, CORE | PARK [...] [facility] | [address] | [place] [address] | | | SERVICES, CORE | BERTRAM [...] [facility] | [address] | [place], [place] | | | THERAPY | [address] | [address] | | + + + + + [...] + + | [facility] | [address] | [place], [place] | | | THERAPY | [address] | [address] | | + + + + + [...] | | | LABORATORY | | | [place] | | | SERVICES, | | | [...] | + + + + + | [facility] | [address] | [place] [address] | | | JANELL SHARP | BERTRAM [...] LABORATORY | [address] | [place] [address] | | | SERVICES, CORE | PARK [...] [facility] [place] | [address] | [place] [address] | | | SERVICES, CORE | BERTRAM [...] | + + + + + | [facility] | [address] | [place] [address] | | | SERVICES, CORE | PARK [...] [facility] [place] | [address] | [place] [address] | | | SERVICES, CORE | BERTRAM [...] [facility] | [address] | [place] [address] | | | SERVICES, CORE | PARK [...] [facility] | [address] | [place] [address] | | | SERVICES, CORE | PARK [...] | | | LABORATORY | | | [place] | | | SERVICES, | | | [...] [facility] [place] | [address] | [place] [address] | | | SERVICES, CORE | BERTRAM [...] | + + + + + | [facility] | [address] | [place] [address] | | | ARON, JANELL | BERTRAM [...] [facility] | [address] | [place], [place] | | | [facility] | [facility] | [address] | | | TESTS | | | [...] PRIMARY | | | | | | CLIENT RENEWAL SPECIALIST: Rudy | | | | | [...] 5 | | | | | | Beninese vascular sheath | | | | | [...] | | | | for a 5 Beninese | | | | | | IMAcatheter. [...] | | | | artery. A 3 Beninese | | | | | | microcatheterwas [...] + + | [facility] | [address] | [place], [place] | | | CARDIOLOGY | [address] | [address] | | + + + + + [...] + + + + | PRODUCT | [id number] | | [facility] | | | UNIT [...] + + + + | BLOOD | [id number] | | [facility] | | | PRODUCT [...] [facility] DEPARTMENT | [address] | [place] [address] | | | PATHOLOGY | [address] [...] + + + + | PRODUCT | [id number] | | [facility] | | | UNIT [...] + + + + | BLOOD | [id number] | | [facility] | | | PRODUCT [...] | + + + + + | [facility] | [address] | [place] [address] | | | PATHOLOGY | [address] [...] + + + + | PRODUCT | [id number] | | [facility] | | | UNIT [...] + + + + | BLOOD | [id number] | | [facility] | | | PRODUCT [...] [facility] DEPARTMENT | [address] | [place] [address] | | | PATHOLOGY | [address] [...] + + + + | PRODUCT | [id number] | | [facility] | | | UNIT [...] + + + + | BLOOD | [id number] | | [facility] | | | PRODUCT [...] | + + + + + | [facility] DEPARTMENT OF | [address] | [place] [address] | | | PATHOLOGY | [address] [...] + + + + | PRODUCT | [id number] | | [facility] | | | UNIT [...] + + + + | BLOOD | [id number] | | [facility] | | | PRODUCT [...] | + + + + + | [facility] DEPARTMENT | [address] | [place] [address] | | | PATHOLOGY | [address] [...] + + + + | PRODUCT | [id number] | | [facility] | | | UNIT [...] + + + + | BLOOD | [id number] | | [facility] | | | PRODUCT [...] | + + + + + | [facility] DEPARTMENT OF | [address] | [place] [address] | | | PATHOLOGY | [address] | | | + + + + + X-RAY PORTABLE CHEST 1 VIEW (04/23/2014 11:41 AM PST) + + + + + + | Component | Value | Ref Range | Performed | Pathologist | | | | | At | Signature | + + + + + + | X-RAY | EXAM: HI CHEST 1 VIEW | | | | [...] + + + + | PRODUCT | [id number] | | [facility] | | | UNIT [...] + + + + | BLOOD | [id number] | | [facility] | | | PRODUCT [...] DEPARTMENT OF | [address] | [place] [address] | | | PATHOLOGY | [address] [...] + + + + | PRODUCT | [id number] | | [facility] | | | UNIT [...] + + + + | BLOOD | [id number] | | [facility] | | | PRODUCT [...] | + + + + + | [facility] DEPARTMENT OF | [address] | [place] [address] | | | PATHOLOGY | [address] [...] + + + + | PRODUCT | [id number] | | [facility] | | | UNIT [...] + + + + | BLOOD | [id number] | | [facility] | | | PRODUCT [...] | + + + + + | [facility] DEPARTMENT OF | [address] | [place] [address] | | | PATHOLOGY | [address] [...] + + + + | PRODUCT | [id number] | | [facility] | | | UNIT [...] + + + + | BLOOD | [id number] | | [facility] | | | PRODUCT [...] | + + + + + | [facility] | [address] | [place] [address] | | | PATHOLOGY | [address] [...] + + + + | PRODUCT | [id number] | | [facility] | | | UNIT [...] + + + + | BLOOD | [id number] | | [facility] | | | PRODUCT [...] [facility] DEPARTMENT | [address] | [place] [address] | | | PATHOLOGY | [address] [...] + + + + | PRODUCT | [id number] | | [facility] | | | UNIT [...] + + + + | BLOOD | [id number] | | [facility] | | | PRODUCT [...] | + + + + + | [facility] | [address] | [place] [address] | | | PATHOLOGY | [address] [...] + + + + | PRODUCT | [id number] | | [facility] | | | UNIT [...] + + + + | BLOOD | [id number] | | [facility] | | | PRODUCT [...] [facility] DEPART[facility] | [address] | [place] [address] | | | PATHOLOGY | [address] [...] + + + + | PRODUCT | [id number] | | [facility] | | | UNIT [...] + + + + | BLOOD | [id number] | | [facility] | | | PRODUCT [...] | + + + + + | [facility] | [address] | [place] [address] | | | PATHOLOGY | [address] [...] + + + + | PRODUCT | [id number] | | [facility] | | | UNIT [...] + + + + | BLOOD | [id number] | | [facility] | | | PRODUCT [...] [facility] DEPART[facility] | [address] | [place] [address] | | | PATHOLOGY | [address] [...] + + + + | PRODUCT | [id number] | | [facility] | | | UNIT [...] + + + + | BLOOD | [id number] | | [facility] | | | PRODUCT [...] | + + + + + | [facility] | [address] | [place] [address] | | | PATHOLOGY | [address] [...] + + + + | PRODUCT | [id number] | | [facility] | | | UNIT [...] + + + + | BLOOD | [id number] | | [facility] | | | PRODUCT [...] [facility] DEPARTMENT | [address] | [place] [address] | | | PATHOLOGY | [address] [...] + + + + | PRODUCT | [id number] | | [facility] | | | UNIT [...] + + + + | BLOOD | [id number] | | [facility] | | | PRODUCT [...] | + + + + + | [facility] DEPARTMENT OF | [address] | [place] [address] | | | PATHOLOGY | [address] [...] + + + + | PRODUCT | [id number] | | [facility] | | | UNIT [...] + + + + | BLOOD | [id number] | | [facility] | | | PRODUCT [...] [facility] DEPART[facility] | [address] | [place] [address] | | | PATHOLOGY | [address] [...] + + + + | PRODUCT | [id number] | | [facility] | | | UNIT [...] + + + + | BLOOD | [id number] | | [facility] | | | PRODUCT [...] | + + + + + | [facility] | [address] | [place] [address] | | | PATHOLOGY | [address] [...] [facility] | [address] | [place] [address] | | | SERVICES, CORE | PARK [...] [facility] | [address] | [place] [address] | | | SERVICES, CORE | [address] [...] most patients with mech. valves (2.5 | [facility], CORE | | - 3.5) INR APTT Therapeutic Range: | | | (75 - 120) sec Heparin levels of 0.35 - 0.7 U/mL | | + + + + + + + + | Performing | Address | City/State/Zipcode | Phone Number | | Organization | | | | + + + + + | [facility] | [address] | [place] [address] | | | JANELL SHARP | [address] [...] | | | LABORATORY | | | [place] | | | SERVICES, | | | [...] [facility] | [address] | [place] [address] | | | SERVICES, CORE | PARK [...] [facility] | [address] | [place] [address] | | | SERVICES, CORE | PARK [...] [facility] | [address] | [place] [address] | | | SERVICES, CORE | PARK [...] | + + + + + | [facility] | [address] | [place] [address] | | | JANELL SHARP | BERTRAM [...] 89 | 60 - 99 mg/dL | [facility] - | | | [...] [facility] | [address] | [place], [place] | | | [facility]INT OF CARE | [address] | [address] | | | TESTS | | | [...] [facility] | [address] | [place] [address] | | | ARON, | [address] [...] | + + + + + | [facility] | [address] | [place] [address] | | | SERVICES, | [address] [...] + + + + | PRODUCT | [id number] | | [facility] | | | UNIT [...] + + + + | BLOOD | [id number] | | [facility] | | | PRODUCT [...] | + + + + + | [facility] | [address] | [place] [address] | | | PATHOLOGY | [address] [...] + + + + | PRODUCT | [id number] | | [facility] | | | UNIT [...] + + + + | BLOOD | [id number] | | [facility] | | | PRODUCT [...] DEPARTMENT OF | [address] | [place] [address] | | | PATHOLOGY | [address] [...] + + + + | PRODUCT | [id number] | | [facility] | | | UNIT [...] + + + + | BLOOD | [id number] | | [facility] | | | PRODUCT [...] | + + + + + | [facility] | [address] | [place] [address] | | | PATHOLOGY | [address] [...] + + + + | PRODUCT | [id number] | | [facility] | | | UNIT [...] + + + + | BLOOD | [id number] | | [facility] | | | PRODUCT [...] DEPARTMENT OF | [address] | [place] [address] | | | PATHOLOGY | [address] [...] + + + + | PRODUCT | [id number] | | [facility] | | | UNIT [...] + + + + | BLOOD | [id number] | | [facility] | | | PRODUCT [...] | + + + + + | [facility] | [address] | [place] [address] | | | PATHOLOGY | [address] [...] + + + + | PRODUCT | [id number] | | [facility] | | | UNIT [...] + + + + | BLOOD | [id number] | | [facility] | | | PRODUCT [...] OF | [address] | [place] [address] | | | PATHOLOGY | [address] [...]
--- OUTSIDE RECORDS SUMMARY | ~2019-03-09 | XMS | Encounter Summary ---
Demographics + + + | Address | [address] | | | [place] [address] | + + + | Home Phone | | + + + | Preferred Language | Unknown | + + + | Marital Status | | + + + | Congregational Affiliation | NRP | + + + | Race | White | + + + | Ethnic Group | Not or | + + + Author + + + | Author | [facility] | + + + | Organization | [facility] | + + + | Address | Unknown | + + + | Phone | Unavailable | + + + Support + + + + + | Name | Relationship | Address | Phone | + + + + + | Kole Willingham | [place] | [address] | | | | | [place], [place] | | | | | [address] | | + + + + + | Cami Sawyer | ECON | Unknown | | + + + + + Care Team Providers + +------+ + | Care Panel Instrument Repairer Name | Role | Phone | [...] | | 2015 | | Center at [facility] [address] | [address] | | | | | Tomasz Menezes | [facility] | | | | | Mailcode: [place] | [place] [address] | | | | | [facility] and | [phone] | | | | | [address] [address] | | | | | | [place], [place] | | | | | | [address] | | | | | | [phone] | | | +--------+ + + + [...]
--- OUTSIDE RECORDS SUMMARY | ~2019-03-09 | XMS | Clinical Summary ---
Demographics + + + | Address | [address] | | | [place] [address] | + + + | Home Phone | | + + + | Preferred Language | Unknown | + + + | Marital Status | | + + + | Sabianism Affiliation | Unknown | + + + [...] | + + +---------+ + | Terrancesachi oGetz | ECON | Unknown | | + + +---------+ + Care Team Providers + +------+ + | Care Metallography Teacher Name | Role | Phone | [...] Overview: Added automatically from request for surgery [id number] | + + + + + | [...] | Stricture esophagus dilated with bougue 20 georgian 04/21/2014 | 04/22/2014 | + + + [...] +--------+ +---------+--------+ | MEDICARE | MEDICA | [id number] | 04/11/19 | [phone] | | Medica [...] bianca | | | 8 (Home) | [address] | + +--------+ +--------+ + +
--- OUTSIDE RECORDS SUMMARY | ~2019-03-09 | XMS | Clinical Summary ---
Demographics + + + | Address | [address] | | | [place] [address] | + + + | Home Phone [...] + | Author | [facility] (Historical as of | | | 11-25-18) | + + + | Organization | [facility] (Historical as of | | | 11-25-18) [...] Team Providers + +------+ + | Care Commutator V Ring Assembler Name | Role | Phone | [...] Overview: Added automatically from request for surgery [id number] | + + + + + | [...] | Stricture esophagus dilated with bougue 20 kosovan 04/21/2014 | 04/22/2014 | + + + [...] +------+-------+ + | MEDICARE | MEDICA | [id number] | | | [address] | | | RE | | | | [place] [address] | | | IP-OP | | | | | + +--------+ +------+-------+ + | [facility] | UNITED | [id number] | | | | | | | [...] Self | [birth year] | Home: | [address] | | | al/Fam | | 1956 | [phone] [place] | | | bianca | | | [address] | [address] | + +--------+ +--------+ + +
--- OUTSIDE RECORDS SUMMARY | ~2019-03-09 | XMS | Encounter Summary ---
Demographics + + + | Address | [address] | | | [place] [address] | + + + | Home Phone | | + + + | Preferred Language | Unknown | + + + | Marital Status | | + + + | Religion Affiliation | NRP | + + + | Race | White | + + + | Ethnic Group | Not or | + + + Author + + + | Author | [facility] | + + + | Organization | [facility] | + + + | Address | Unknown | + + + | Phone | Unavailable | + + + Support + + + + + | Name | Relationship | Address | Phone | + + + + + | Kole Willingham | [place] | [address] | | | | | [place], [place] | | | | | [address] | | + + + + + | Cami Sawyer | ECON | Unknown | | + + + + + Care Team Providers + +------+ + | Care Chemical Project Engineer Name | Role | Phone | [...] | 2011 | Encounter | [address] | | | | | | [facility] | | | | | | [facility] | | | | | | [place], [place] | | | | | | [address] | | | | | | [phone] | | | +--------+ + + + [...]
--- OUTSIDE RECORDS SUMMARY | ~2019-03-09 | XMS | Encounter Summary ---
Demographics + + + | Address | [address] | | | [place] [address] | + + + | Home Phone [...] [place], [place] | | | | | [address] | | + + + + + | Cami Sawyer | ECON | Unknown | | + + + + + Care Team Providers + +------+ + | Care Pipe Line Walker Name | Role | Phone | + [...] | Crohn's | Neel Vega MD | [address] | | | | | disease of | [facility] [address] | | | | | both small | HOSP[facility] | Kristen Rubio | | | | | and large | CARE CLINIC | [place], [place] | | | | | intestine | [address] | [address] | | | | | without | 2ND | Phone: | | | | | complication | [place], | [phone] | | | | | s | [place] [address] | Fax: | | | | | | Phone: | [phone] | | | | | | [phone] | | | | | | | Fax: | | | | | | | [phone] | | +--------+--------+ + + + + Encounter Details +--------+---------+ + + + | Date | Type | Department | Care Team | Description | +--------+---------+ + + + | 07/27/ | Office | Digestive Health | Trice Marie MD | Rectovaginal fistula | | 2016 | Visit | Center at [facility] [address] | [address] | (Primary Dx); | | | [address] | [place], | Crohn's disease of | | | | Mailcode: [place] | [place] [address] | both small and large | | | | for Health and | [phone] | intestine with | | | | Healing, [address] | | complication (HCC) | | | | [place], [place] | | | | | | [address] | | | | | | [phone] | | | +--------+---------+ + + + [...] Dimple in her vagina seen by her PAWN BROKER ~1995 For fibroids and vaginal bleeding, she [...] Referral patient, I spent 62 minutes of [id number] time, of which more than half the [...] this past month at [facility] in [facility] with Dr. Krishna, which per patient [...] alcohol or use illicit drugs. Lives in [place] with her . FH: Family History: None [...] outside colonoscopy completed at [facility] - request has been sent 2) Plan for flex sig locally in [place] in 8 weeks time. Patient to send [...] | + +--------+ + + + | ME ANOSCOPY, DIAG | Routin | 08/04/2015 | [...]
--- OUTSIDE RECORDS SUMMARY | ~2019-03-09 | XMS | Encounter Summary ---
Demographics + + + | Address | [address] | | | [place] [address] | + + + | Home Phone [...] Team Providers + +------+ + | Care Sports Marketing Specialist Name | Role | Phone | + +------+ + PCP | Unavailable | + +------+ + Encounter Details +--------+ + + + + | Date | Type | Department | Care Team | Description | +--------+ + + + + | 03/01/ | Hospital | [facility] | Conversion | | | 2017 | Encounter | CENTER [facility] | Transaction, | | | | | CLINIC [address] | Provider Unknown | | | | | [place], [place] | | | | | | [address] | (Fax) | | | | | [phone] | | | +--------+ + + + [...] | | | PCRAbnormal Testing performed at [facility];[address] [place] [address];[place] [address] | | + + + + +---------+ [...] | | | | performed at [facility];[address] | | | | | [address];[place], [place] | | | | | | [address] | | | | + + + [...] | | | | | at [facility];[address] [place] [address] | | | | | | [facility];[place] [address] | | | | + + + [...]
--- OUTSIDE RECORDS SUMMARY | ~2019-03-09 | XMS | Encounter Summary ---
Demographics + + + | Address | [address] | | | [place] [address] | + + + | Home Phone | | + + + | Preferred Language | Unknown | + + + | Marital Status | | + + + | Druze Affiliation | NRP | + + + | Race | White | + + + | Ethnic Group | Not or | + + + Author + + + | Author | [facility] | + + + | Organization | [facility] | + + + | Address | Unknown | + + + | Phone | Unavailable | + + + Support + + + + + | Name | Relationship | Address | Phone | + + + + + | Kole Willingham | [place] | [address] | | | | | [place], [place] | | | | | [address] | | + + + + + | Cami Sawyer | ECON | Unknown | | + + + + + Care Team Providers + +------+ + | Care Shared Services Representative Name | Role | Phone | [...] | | 2016 | | Center at [facility] [address] | | - General | | | | [address] | | | | | | Mailcode: Center | | | | | | [facility] and | | | | | | [facility] | | | | | | [place], [place] | | | | | | [address] | | | | | | [phone] | | | +--------+ + + + [...]
--- OUTSIDE RECORDS SUMMARY | ~2019-03-09 | XMS | Encounter Summary ---
Demographics + + + | Address | [address] | | | [place] [address] | + + + | Home Phone [...] Team Providers + +------+ + | Care Cork Painter And Grader Name | Role | Phone | + [...] [address] | | | | | [place], [place] | [place] [address] | | | | | [address] | [phone] | | | | | [phone] | | | +--------+ + + + [...]
--- OUTSIDE RECORDS SUMMARY | ~2019-03-09 | XMS | Encounter Summary ---
Demographics + + + | Address | [address] | | | [place] [address] | + + + | Home Phone [...] [place], [place] | | | | | [address] | | + + + + + | Cami Sawyer | ECON | Unknown | | + + + + + Care Team Providers + +------+ + | Care Application Programmer Analyst Name | Role | Phone | [...] | | | 2014 | Event | [facility] | [address] | | | | | Admitting Desk | [place], | | | | | Located on the | [place] [address] | | | | | floor [address] [facility] | [phone] | | | | | [address] | | | | | | [place], [place] | Rajiv Willingham [place] | | | | | [address] | [facility] | | | | | | [facility] [address] [address] | | | | | | [facility] | | | | | | [place] [address] | | | | | | [phone] | | | | | | | [...] by | | D - | "port"); [facility]; 01/27/17 | Alberto London RN | Discontinued After | | [facility] | (Automatic cleanup per RA | | Discharge | | l Line | 3006--contact admin for | | | | | questions.); 1622 (Automatic | | | | | cleanup per RA 3006--contact | | | | | admin for questions.); Yes; Other | | | | | (comment) ([facility]); No; Left; | | | | [...]
--- OUTSIDE RECORDS SUMMARY | ~2019-03-09 | XMS | Encounter Summary ---
Demographics + + + | Address | [address] | | | [place] [address] | + + + | Home Phone | | + + + | Preferred Language | Unknown | + + + | Marital Status | | + + + | Gnosticism Affiliation | Unknown | + + + | Race | Unknown | + + + | Ethnic Group | Unknown | + + + Author + + + | Author | [facility] | | | and [place] | + + + | Organization | [facility] | | [...] Team Providers + +------+ + | Care Surveillance Camera Technician Name | Role | Phone | + +------+ + PCP | Unavailable | + +------+ + Encounter Details +--------+ + + + + | Date | Type | Department | Care Team | Description | +--------+ + + + + | 11/05/ | Hospital | [facility] | Gina Haines DO | Chest pain, | | 2015 - | Encounter | [facility] | [address] | unspecified chest | | | | CARE FLOOR [address] | [place] [address] | pain type; | | 11/10/ | | [address] | [phone] | Pyelonephritis; | | 2014 | | [place], [place] | | Acute nonintractable | | | | [address] | | headache, | | | | [phone] | | unspecified headache | | | [...] 010 Date of Service: 11/10/141007 Status: Signed Developer [employer]: Rosmery Oden MD (Physician) [facility] Service: Hospitalist Discharge Summary Date of Admission: [...] who was admitted as a transfer from [facility] due to sepsis and altered [...] Vancomycin and she was then transferred to [facility]. Upon arr ival she was febrile [...] primary care physician about referral to a Ride Mechanic at [facility] for further evaluation of Chohn's Disease. [...] Follow up: Neel Fernandes MD [address] [place] [address] [place] [id number] In 4 days As scheduled. Medication List [...] the prescriptions that you need to pickle maker. You may get the following medications from [...] Service: Hospitalist Author Type: Physician Filed: 11/09/14 4303 Date of Service: 11/09/141445 Status: Signed Developer [employer]: Rosmery Oden MD (Physician) [facility] Service: Hospitalist Progress Note Mackenzie Willingham 59 y.o. [phone] - female Neel Fernandes (General) Hospital Day: LOS: 4 days SUBJECTIVE Patient Summary: Patient is a 59 year old female with past medical history of COPD, Crohn's Disease, HTN, Hi story of Spelnic Vein Thrombosis and Immunosuppression due to Steroids and Remicade who was admitted as a transfer from [facility] due to sepsis and altered [...] and Vancomycin. 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 She indicates her will be home for [...] Barriers to Discharge Physical Deficits Impacting Functional Butts PT Ready for Discharge Yes (pt.'s will be home until school starts ) onver roshan Main, Provider Unknown - 11/09/2014 2:13 PM PDT Nurse Progress Note by Eliza Cheng RN at 11/09/141412 Author: Eliza Cheng RN Service: (none) Author Type: Registered Nurse Filed: 11/09/14 1415 Date of Service: 11/09/141412 Status: Signed [employer]: Eliza Cheng RN (Registered Nurse) Per pt: [...] 1442 Date of Service: 11/09/14856 Status: Signed Developer [employer]: Ev Mas MD (Physician) [facility] Service: Infectious Disease Progress Note Hospital Day: [...] who was admitted as a transfer from [facility] due to sepsis and a [...] Vancomycin. She was then transferr ed to [facility], upon arrival she was febrile and [...] PROBLEM LIST Principal Problem: Sepsis(995.91) ([facility]) Active Problems: Diarrhea Encephalopathy acute Delirium [...] 1725 Date of Service: 11/08/14841 Status: Signed Developer [employer]: Rosmery Oden MD (Physician) [facility] Service: Hospitalist Progress Note Mackenzie Willingham 59 y.o. [phone] - female Neel Vega Dena (General) Hospital Day: LOS: 3 days SUBJECTIVE Patient Summary: Patient is a 59 year old female with past medical history of COPD, Crohn's Disease, HTN, Hi story of Spelnic Vein Thrombosis and Immunosuppression due to Steroids and Remicade who was admitted as a transfer from [facility] due to sepsis and altered [...] and Vancomycin. She was then transferred to [facility], upon arriv al she was febrile [...] Will follow MS panel results and con head of drama repeating MRI with contrast before discharge. Hyponatremia [...] Date of Service: 11/08/14 0807 Status: Signed Developer [employer]: Ev Mas MD (Physician) [facility] Service: Infectious Disease Progress Note Hospital Day: [...] who was admitted as a transfer from [facility] due to sepsis and a [...] Vancomycin. She was then transferr ed to [facility], upon arrival she was febrile and [...] PROBLEM LIST Principal Problem: Sepsis(995.91) ([facility]) Active Problems: Diarrhea Encephalopathy acute Delirium [...] Progress Note by Anthony Correa at 11/07/14 6850 Author: Anthony Correa Service: Wound/Ostomy Care Author Type: Nurse Deoiling Machine Operator Filed: 11/07/14 3320 Date of Service: 11/07/141106 Status: Signed Developer [employer]: Anthony Correa (Nurse Deoiling Machine Operator) Patient seen today for low Marck score. [...] 1719 Date of Service: 11/07/14908 Status: Addendum [employer]: Rosmery Oden MD (Physician) Related Notes: Original Note by Rosmery Oden MD (Physician) filed at 11/07/14 17 18 [facility] Service: Hospitalist Progress Note Mackenzie Willingham 59 y.o. [phone] 2037/2037- female Neel Fernandes (General) Hospital Day: LOS: 2 days SUBJECTIVE Patient Summary: Patient is a 59 year old female with past medical history of COPD, Crohn's Disease, HTN, Hi story of Spelnic Vein Thrombosis and Immunosuppression due to Steroids and Remicade who was admitted as a transfer from [facility] due to sepsis and altered [...] and Vancomycin. She was then transferred to [facility], upon arriv al she was febrile [...] LEM LIST Principal Problem: Sepsis(995.91) ([facility]) Active Problems: Encephalopathy acute Diarrhea Delirium [...] 0845 Date of Service: 11/07/14808 Status: Signed Developer [employer]: Raphael Turner DO (Physician) [facility] Service: Infectious Disease Progress Note Hospital Day: [...] 1700 Date of Service: 11/06/14844 Status: Addendum [employer]: Rosmery Oden MD (Physician) Related Notes: Original Note by Rosmery Oden MD (Physician) filed at 11/06/14 16 57 [facility] Service: Hospitalist Progress Note Mackenzie Willingham 59 y.o. [phone] female Neel Fernandes (General) Hospital Day: LOS: 1 day SUBJECTIVE Patient Summary: Patient is a 59 year old female with past medical history of COPD, Crohn's Disease, HTN, Hi story of Spelnic Vein Thrombosis and Immunosuppression due to Steroids and Remicade who was admitted as a transfer from [facility] due to sepsis and altered mental status. Apparently, she developed nausea, vomiting and diarrhea for four days and was very lethargic . Her has been giving all her medications including narcotics Oxycodone Morphine sul fate. Her labs there showed leukocytosis and findings of UTI. She was started IV fluids and given one dose of Zosyn, Flagyl and Vancomycin. 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 Will monitor CBC and continue [...] 11/06/1444 Date of Service: 11/06/14543 Status: Signed Developer [employer]: Rosita Bertrand RPH (Pharmacist) Clinical Pharmacy Note: Renal Monitoring Height: 175.3 cm Weight: 68 kg CREATININE: 0.76 (11/05/14 6062) Estimated creatinine clearance - 83.3 mL/min Pharmacy [...] 11/06/14610 Date of Service: 11/06/14445 Status: Signed Developer [employer]: Livia Deshpande RN (Registered Nurse) Called pts husbands phone number to complete the MRI form. Left a message with him to call [facility]. docume nted in this encounter Plan [...] | | | | [facility], [address] [facility] | | | | | | [place] | | | | | | [address] | | | | + + + + + + | RED CELL | 3.74Comment: Testing | 3.70 - 5.10 | EXTERNAL | | | COUNT | performed at [facility], [address] | M/uL | LAB | | | | [address], | | | | | | [place] [address] | | | | + + + + + + | Hgb | 11.3Comment: Testing | 11.3 - 15.5 | EXTERNAL | | | | performed at [facility], [address] | g/dL | LAB | | | | [address], | | | | | | [place] [address] | | | | + + + + + + | Hematocrit, | 35.4Comment: Testing | 34.0 - 46.0 % | EXTERNAL | | | POC | performed at [facility], [address] | | LAB | | | | [address], | | | | | | [place] [address] | | | | + + + + + + | MCV | 94.7Comment: Testing | 80.0 - 100.0 fl | EXTERNAL | | | | performed at [facility], [address] | | LAB | | | | [address], | | | | | | [place] [address] | | | | + + + + + + | MCH | 30.3Comment: Testing | 27.0 - 34.0 pg | EXTERNAL | | | | performed at [facility], [address] | | LAB | | | | [address], | | | | | | [place] [address] | | | | + + + + + + | MCHC | 32.0Comment: Testing | 32.0 - 35.5 | EXTERNAL | | | | performed at [facility], [address] | g/dL | LAB | | | | [address], | | | | | | [place] [address] | | | | + + + + + + | RDW-CV | 59.5 (H)Comment: Testing | 37 - 53 fl | EXTERNAL | | | | performed at [facility], [address] | | LAB | | | | [address], | | | | | | [place] [address] | | | | + + + + + + | Platelet | 393Comment: Testing | 150 - 400 K/uL | EXTERNAL | | | Count | performed at [facility], [address] | | LAB | | | Plasma | [place], | | | | | | [place] [address] | | | | + + + + + + | MPV | 8.4Comment: Testing | fl | EXTERNAL | | | | performed at [facility], [address] | | LAB | | | | [address], | | | | | | [place] [address] | | | | + + + [...] | | | | | performed at [facility];[address] | | | | | | [address] [place], [place] | | | | | | [address] | | | | + + + [...] | | | | [facility], [address] | | | | | | [place] | | | | | | [address] | | | | + + + + + + | RED CELL | 3.75Comment: Testing | 3.70 - 5.10 | EXTERNAL | | | COUNT | performed at [facility], [address] | M/uL | LAB | | | | [address], | | | | | | [place] [address] | | | | + + + + + + | Hgb | 11.2 (L)Comment: Testing | 11.3 - 15.5 | EXTERNAL | | | | performed at [facility], [address] | g/dL | LAB | | | | [address], | | | | | | [place] [address] | | | | + + + + + + | Hematocrit, | 36.1Comment: Testing | 34.0 - 46.0 % | EXTERNAL | | | POC | performed at [facility], [address] | | LAB | | | | [place], | | | | | | [place] [address] | | | | + + + + + + | MCV | 96.2Comment: Testing | 80.0 - 100.0 fl | EXTERNAL | | | | performed at [facility], [address] | | LAB | | | | [place], | | | | | | [place] [address] | | | | + + + + + + | MCH | 30.0Comment: Testing | 27.0 - 34.0 pg | EXTERNAL | | | | performed at [facility], [address] | | LAB | | | | [address], | | | | | | [place] [address] | | | | + + + + + + | MCHC | 31.2 (L)Comment: Testing | 32.0 - 35.5 | EXTERNAL | | | | performed at [facility], [address] | g/dL | LAB | | | | [address], | | | | | | [place] [address] | | | | + + + + + + | RDW-CV | 58.6 (H)Comment: Testing | 37 - 53 fl | EXTERNAL | | | | performed at [facility], [address] | | LAB | | | | [address], | | | | | | [place] [address] | | | | + + + + + + | Platelet | 391Comment: Testing | 150 - 400 K/uL | EXTERNAL | | | Count | performed at [facility], [address] | | LAB | | | Plasma | [address], | | | | | | [place] [address] | | | | + + + + + + | MPV | 8.6Comment: Testing | fl | EXTERNAL | | | | performed at [facility], [address] | | LAB | | | [address], | | | | | | [place] [address] | | | | + + + [...] | | | | | performed at [facility] | | | | | | [facility];[place], [place] | | | | | | [address] | | | | + + + [...] | | | | | [place] [address] | | | | + + + + + + | K | 3.4 (L)Comment: Testing | 3.5 - 4.9 | EXTERNAL | | | | performed at [facility], [address] | mmol/L | LAB | | | | [address], | | | | | | [place] [address] | | | | + + + + + + | Cl | 109Comment: Testing | 99 - 109 mmol/L | EXTERNAL | | | | performed at [facility], [address] | | LAB | | | | [address], | | | | | | [place] [address] | | | | + + + + + + | CO2 | 20 (L)Comment: Testing | 23 - 32 mmol/L | EXTERNAL | | | | performed at [facility], [address] | | LAB | | | | [address], | | | | | | [place] [address] | | | | + + + + + + | Anion Gap | 11Comment: Testing | 5 - 20 mmol/L | EXTERNAL | | | | performed at [facility], [address] | | LAB | | | | [address], | | | | | | [place] [address] | | | | + + + + + + | Glucose, | 74Comment: Testing | 65 - 99 mg/dL | EXTERNAL | | | Fasting | performed at [facility], [address] | | LAB | | | | [address], | | | | | | [place] [address] | | | | + + + + + + | BUN | 8Comment: Testing | 8 - 25 mg/dL | EXTERNAL | | | | performed at [facility], [address] | | LAB | | | | [address], | | | | | | [place] [address] | | | | + + + + + + | Creatinine | 0.57Comment: Testing | 0.50 - 1.00 | EXTERNAL | | | | performed at [facility], [address] | mg/dL | LAB | | | | [address], | | | | | | [place] [address] | | | | + + + + + + | BUN/Creatin | 14Comment: Testing | | EXTERNAL | | | ine Ratio | performed at [facility], [address] | | LAB | | | | [address], | | | | | | [place] [address] | | | | + + + + + + | Calcium | 8.5Comment: Testing | 8.5 - 10.5 | EXTERNAL | | | | performed at [facility], [address] | mg/dL | LAB | | | | [address], | | | | | | [place] [address] | | | | + + + + + + | Protein, | 5.9 (L)Comment: Testing | 6.3 - 8.2 g/dL | EXTERNAL | | | Total | performed at [facility], [address] | | LAB | | | | [address], | | | | | | [place] [address] | | | | + + + + + + | Albumin | 2.7 (L)Comment: Testing | 3.6 - 5.0 g/dL | EXTERNAL | | | | performed at [facility], [address] | | LAB | | | | [address], | | | | | | [place] [address] | | | | + + + + + + | Globulin | 3.2Comment: Testing | 1.3 - 4.9 g/dL | EXTERNAL | | | | performed at [facility], [address] | | LAB | | | | [address], | | | | | | [place] [address] | | | | + + + + + + | A/G Ratio | 0.8 (L)Comment: Testing | 1.0 - 2.4 | EXTERNAL | | | | performed at [facility], [address] | | LAB | | | | [address], | | | | | | [place] [address] | | | | + + + + + + | Bilirubin | 0.4Comment: Testing | 0.1 - 1.5 mg/dL | EXTERNAL | | | Total | performed at [facility], [address] | | LAB | | | | [address], | | | | | | [place] [address] | | | | + + + + + + | ALP, | 137 (H)Comment: Testing | 35 - 115 U/L | EXTERNAL | | | External | performed at [facility], [address] | | LAB | | | | [address], | | | | | | [place] [address] | | | | + + + + + + | AST | 13Comment: Testing | 10 - 45 U/L | EXTERNAL | | | | performed at [facility], [address] | | LAB | | | | [address], | | | | | | [place] [address] | | | | + + + + + + | ALT | 13Comment: Testing | 10 - 65 U/L | EXTERNAL | | | | performed at [facility], [address] | | LAB | | | | [employer] [facility], | | | | | | [place] [address] | | | | + + + [...] | | | | | | at [facility], [address] | | | | | | [address], | | | | | | [place] [address] | | | | + + + [...] | | | | | performed at [facility];[address] | | | | | | [address];[place], [place] | | | | | | [address] | | | | + + + [...] [place] | | | | | | [address] | | | | + + + + + + | RED CELL | 4.07Comment: Testing | 3.70 - 5.10 | EXTERNAL | | | COUNT | performed at [facility], [address] | M/uL | LAB | | | | [address], | | | | | | [place] [address] | | | | + + + + + + | Hgb | 12.3Comment: Testing | 11.3 - 15.5 | EXTERNAL | | | | performed at [facility], [address] | g/dL | LAB | | | | [address], | | | | | | [place] [address] | | | | + + + + + + | Hematocrit, | 38.1Comment: Testing | 34.0 - 46.0 % | EXTERNAL | | | POC | performed at [facility], [address] | | LAB | | | | [address], | | | | | | [place] [address] | | | | + + + + + + | MCV | 93.6Comment: Testing | 80.0 - 100.0 fl | EXTERNAL | | | | performed at [facility], [address] | | LAB | | | | [address], | | | | | | [place] [address] | | | | + + + + + + | MCH | 30.2Comment: Testing | 27.0 - 34.0 pg | EXTERNAL | | | | performed at [facility], [address] | | LAB | | | | [address], | | | | | | [place] [address] | | | | + + + + + + | MCHC | 32.2Comment: Testing | 32.0 - 35.5 | EXTERNAL | | | | performed at [facility], [address] | g/dL | LAB | | | | [address], | | | | | | [place] [address] | | | | + + + + + + | RDW-CV | 59.1 (H)Comment: Testing | 37 - 53 fl | EXTERNAL | | | | performed at [facility], [address] | | LAB | | | | [address], | | | | | | [place] [address] | | | | + + + + + + | Platelet | 390Comment: Testing | 150 - 400 K/uL | EXTERNAL | | | Count | performed at [facility], [address] | | LAB | | | Plasma | [address], | | | | | | [place] [address] | | | | + + + + + + | MPV | 8.4Comment: Testing | fl | EXTERNAL | | | | performed at [facility], [address] | | LAB | | | | [address] [place], | | | | | | [place] [address] | | | | + + + + + + | Differentia | AUTOMATEDComment: | | EXTERNAL | | | l Type | Testing performed at | | LAB | | | | [facility], [address] | | | | | | [place] | | | | | | [address] | | | | + + + + + + | % Segmented | 69.87Comment: Testing | % | EXTERNAL | | | | performed at [facility], [address] | | LAB | | | Neutrophils | [address], | | | | | | [place] [address] | | | | + + + + + + | % | 16.92Comment: Testing | % | EXTERNAL | | | Lymphocytes | performed at [facility], [address] | | LAB | | | | [address], | | | | | | [place], [place] [address] | | | | + + + + + + | % Monocytes | 11.85Comment: Testing | % | EXTERNAL | | | | performed at [facility], [address] | | LAB | | | | [address], | | | | | | [place], [place] [address] | | | | + + + + + + | % | 0.93Comment: Testing | % | EXTERNAL | | | Eosinophils | performed at [facility], [address] | | LAB | | | | [address], | | | | | | [place], [place] [address] | | | | + + + + + + | % Basophils | 0.43Comment: Testing | % | EXTERNAL | | | | performed at [facility], [address] | | LAB | | | | [address], | | | | | | [place] [address] | | | | + + + + + + | Absolute | 12.01 (H)Comment: | 1.90 - 7.40 | EXTERNAL | | | Segmented | Testing performed at | K/uL | LAB | | | Neutrophils | [facility], [address] | | | | | | [place] | | | | | | [address] | | | | + + + + + + | Absolute | 2.91Comment: Testing | 1.00 - 3.90 | EXTERNAL | | | Lymphocytes | performed at [facility], [address] | K/uL | LAB | | | | [place], | | | | | | [place] [address] | | | | + + + + + + | Absolute | 2.04 (H)Comment: Testing | 0.00 - 0.80 | EXTERNAL | | | Monocytes | performed at [facility], [address] | K/uL | LAB | | | | [address] [place], | | | | | | [place] [address] | | | | + + + + + + | Absolute | 0.16Comment: Testing | 0.00 - 0.50 | EXTERNAL | | | Eosinophils | performed at [facility], [address] | K/uL | LAB | | | | [address], | | | | | | [place] [address] | | | | + + + + + + | Absolute | 0.07Comment: Testing | 0.00 - 0.10 | EXTERNAL | | | Basophils | performed at [facility], [address] | K/uL | LAB | | | | [address], | | | | | | [place] [address] | | | | + + + + + + | RBC | 2+Comment: ANISONORMAL | | EXTERNAL | | | Morphology | PLT MORPHTesting | | LAB | | | | performed at [facility], [address] | | | | | | [address], | | | | | | [place] [address] | | | | | | | [...] | | | | | [place] [address] | | | | + + + [...] [place] | | | | | | [address] | | | | + + + + + + | Cl | 104Comment: Testing | 99 - 109 mmol/L | EXTERNAL | | | | performed at [facility], [address] | | LAB | | | | [address] [place], | | | | | | [place] [address] | | | | + + + + + + | CO2 | 21 (L)Comment: Testing | 23 - 32 mmol/L | EXTERNAL | | | | performed at [facility], [address] | | LAB | | | | [address] [place], | | | | | | [place] [address] | | | | + + + + + + | Anion Gap | 12Comment: Testing | 5 - 20 mmol/L | EXTERNAL | | | | performed at [facility], [address] | | LAB | | | | [address], | | | | | | [place] [address] | | | | + + + + + + | Glucose, | 83Comment: Testing | 65 - 99 mg/dL | EXTERNAL | | | Fasting | performed at [facility], [address] | | LAB | | | | [address], | | | | | | [place] [address] | | | | + + + [...] | | | | | [place] [address] | | | | + + + + + + | BUN/Creatin | 15Comment: Testing | | EXTERNAL | | | ine Ratio | performed at [facility], [address] | | LAB | | | | [address], | | | | | | [place] [address] | | | | + + + + + + | Calcium | 8.6Comment: Testing | 8.5 - 10.5 | EXTERNAL | | | | performed at [facility], [address] | mg/dL | LAB | | | | [address], | | | | | | [place] [address] | | | | + + + + + + | Protein, | 5.8 (L)Comment: Testing | 6.3 - 8.2 g/dL | EXTERNAL | | | Total | performed at [facility], [address] | | LAB | | | | [address], | | | | | | [place] [address] | | | | + + + + + + | Albumin | 2.9 (L)Comment: Testing | 3.6 - 5.0 g/dL | EXTERNAL | | | | performed at [facility], [address] | | LAB | | | | [address], | | | | | | [place] [address] | | | | + + + + + + | Globulin | 2.9Comment: Testing | 1.3 - 4.9 g/dL | EXTERNAL | | | | performed at [facility], [address] | | LAB | | | | [address], | | | | | | [place] [address] | | | | + + + + + + | A/G Ratio | 1.0Comment: Testing | 1.0 - 2.4 | EXTERNAL | | | | performed at [facility], [address] | | LAB | | | | [address], | | | | | | [place] [address] | | | | + + + + + + | Bilirubin | 0.7Comment: Testing | 0.1 - 1.5 mg/dL | EXTERNAL | | | Total | performed at [facility], [address] | | LAB | | | [address], | | | | | | [place] [address] | | | | + + + + + + | ALP, | 169 (H)Comment: Testing | 35 - 115 U/L | EXTERNAL | | | External | performed at [facility], [address] | | LAB | | | | [address], | | | | | | [place] [address] | | | | + + + + + + | AST | 16Comment: Testing | 10 - 45 U/L | EXTERNAL | | | | performed at [facility], [address] | | LAB | | | | [address] [place], | | | | | | [place] [address] | | | | + + + + + + | ALT | 17Comment: Testing | 10 - 65 U/L | EXTERNAL | | | | performed at [facility], [address] | | LAB | | | | [address] [place], | | | | | | [place] [address] | | | | + + + [...] | | | | | [place] [address] | | | | + + + [...] | | | Total | performed at [facility], [address] | | LAB | | | | [place], | | | | | | [place] [address] | | | | + + + [...] Conversion - 11/24/2018 6:38 AM PDT [facility] | | [...] | | | | | performed at [facility];[address] | | | | | | [facility];[place], [place] | | | | | | [address] | | | | + + + [...] | | | | TCL, [address] | | | | | | [place] | | | | | | [address] | | | | + + + + + + | RED CELL | 4.28Comment: Testing | 3.70 - 5.10 | EXTERNAL | | | COUNT | performed at [facility], [address] | M/uL | LAB | | | | [address], | | | | | | [place] [address] | | | | + + + + + + | Hgb | 13.0Comment: Testing | 11.3 - 15.5 | EXTERNAL | | | | performed at [facility], [address] | g/dL | LAB | | | | [address], | | | | | | [place] [address] | | | | + + + + + + | Hematocrit, | 40.0Comment: Testing | 34.0 - 46.0 % | EXTERNAL | | | POC | performed at [facility], [address] | | LAB | | | | [address], | | | | | | [place] [address] | | | | + + + + + + | MCV | 93.4Comment: Testing | 80.0 - 100.0 fl | EXTERNAL | | | | performed at [facility], [address] | | LAB | | | | [address], | | | | | | [place] [address] | | | | + + + + + + | MCH | 30.3Comment: Testing | 27.0 - 34.0 pg | EXTERNAL | | | | performed at [facility], [address] | | LAB | | | | [address], | | | | | | [place] [address] | | | | + + + + + + | MCHC | 32.5Comment: Testing | 32.0 - 35.5 | EXTERNAL | | | | performed at [facility], [address] | g/dL | LAB | | | | [address], | | | | | | [place] [address] | | | | + + + + + + | RDW-CV | 57.8 (H)Comment: Testing | 37 - 53 fl | EXTERNAL | | | | performed at [facility], [address] | | LAB | | | | [address], | | | | | | [place] [address] | | | | + + + + + + | Platelet | 403 (H)Comment: Testing | 150 - 400 K/uL | EXTERNAL | | | Count | performed at [facility], [address] | | LAB | | | Plasma | [address], | | | | | | [place] [address] | | | | + + + + + + | MPV | 8.4Comment: Testing | fl | EXTERNAL | | | | performed at [facility], [address] | | LAB | | | | [address], | | | | | | [place] [address] | | | | + + + + + + | Differentia | AUTOMATEDComment: | | EXTERNAL | | | l Type | Testing performed at | | LAB | | | | [facility], [address] | | | | | | [place] | | | | | | [address] | | | | + + + + + + | % Segmented | 69.85Comment: Testing | % | EXTERNAL | | | | performed at [facility], [address] | | LAB | | | Neutrophils | [address], | | | | | | [place] [address] | | | | + + + + + + | % | 17.96Comment: Testing | % | EXTERNAL | | | Lymphocytes | performed at [facility], [address] | | LAB | | | | [address], | | | | | | [place] [address] | | | | + + + + + + | % Monocytes | 11.10Comment: Testing | % | EXTERNAL | | | | performed at [facility], [address] | | LAB | | | | [address], | | | | | | [place] [address] | | | | + + + + + + | % | 0.77Comment: Testing | % | EXTERNAL | | | Eosinophils | performed at [facility], [address] | | LAB | | | | [address], | | | | | | [place] [address] | | | | + + + + + + | % Basophils | 0.32Comment: Testing | % | EXTERNAL | | | | performed at [facility], [address] | | LAB | | | | [address], | | | | | | [place] [address] | | | | + + + + + + | Absolute | 10.28 (H)Comment: | 1.90 - 7.40 | EXTERNAL | | | Segmented | Testing performed at | K/uL | LAB | | | Neutrophils | [facility], [address] | | | | | | [place] | | | | | | [address] | | | | + + + + + + | Absolute | 2.64Comment: Testing | 1.00 - 3.90 | EXTERNAL | | | Lymphocytes | performed at [facility], [address] | K/uL | LAB | | | | [address], | | | | | | [place] [address] | | | | + + + + + + | Absolute | 1.63 (H)Comment: Testing | 0.00 - 0.80 | EXTERNAL | | | Monocytes | performed at [facility], [address] | K/uL | LAB | | | | [address], | | | | | | [place] [address] | | | | + + + + + + | Absolute | 0.11Comment: Testing | 0.00 - 0.50 | EXTERNAL | | | Eosinophils | performed at [facility], [address] | K/uL | LAB | | | | [address], | | | | | | [place] [address] | | | | + + + + + + | Absolute | 0.05Comment: Testing | 0.00 - 0.10 | EXTERNAL | | | Basophils | performed at [facility], [address] | K/uL | LAB | | | | [address], | | | | | | [place] [address] | | | | + + + [...] EXTERNAL | | | | performed at [facility], [address] | mmol/L | LAB | | | | [address], | | | | | | [place] [address] | | | | + + + + + + | K | 3.1 (L)Comment: Testing | 3.5 - 4.9 | EXTERNAL | | | | performed at [facility], [address] | mmol/L | LAB | | | | [address], | | | | | | [place] [address] | | | | + + + + + + | Cl | 96 (L)Comment: Testing | 99 - 109 mmol/L | EXTERNAL | | | | performed at [facility], [address] | | LAB | | | | [address], | | | | | | [place] [address] | | | | + + + + + + | CO2 | 24Comment: Testing | 23 - 32 mmol/L | EXTERNAL | | | | performed at [facility], [address] | | LAB | | | | [address], | | | | | | [place] [address] | | | | + + + + + + | Anion Gap | 11Comment: Testing | 5 - 20 mmol/L | EXTERNAL | | | | performed at [facility], [address] | | LAB | | | | [address], | | | | | | [place] [address] | | | | + + + + + + | Glucose, | 102 (H)Comment: Testing | 65 - 99 mg/dL | EXTERNAL | | | Fasting | performed at [facility], [address] | | LAB | | | | [address], | | | | | | [place] [address] | | | | + + + + + + | BUN | 6 (L)Comment: Testing | 8 - 25 mg/dL | EXTERNAL | | | | performed at [facility], [address] | | LAB | | | | [address], | | | | | | [place] [address] | | | | + + + + + + | Creatinine | 0.49 (L)Comment: Testing | 0.50 - 1.00 | EXTERNAL | | | | performed at [facility], [address] | mg/dL | LAB | | | | [address], | | | | | | [place] [address] | | | | + + + + + + | BUN/Creatin | 12Comment: Testing | | EXTERNAL | | | ine Ratio | performed at [facility], [address] | | LAB | | | | [address], | | | | | | [place] [address] | | | | + + + + + + | Calcium | 8.5Comment: Testing | 8.5 - 10.5 | EXTERNAL | | | | performed at [facility], [address] | mg/dL | LAB | | | | [address], | | | | | | [place] [address] | | | | + + + + + + | Protein, | 6.1 (L)Comment: Testing | 6.3 - 8.2 g/dL | EXTERNAL | | | Total | performed at [facility], [address] | | LAB | | | | [address], | | | | | | [place] [address] | | | | + + + + + + | Albumin | 3.0 (L)Comment: Testing | 3.6 - 5.0 g/dL | EXTERNAL | | | | performed at [facility], [address] | | LAB | | | | [address], | | | | | | [place] [address] | | | | + + + + + + | Globulin | 3.1Comment: Testing | 1.3 - 4.9 g/dL | EXTERNAL | | | | performed at [facility], [address] | | LAB | | | | [address], | | | | | | [place] [address] | | | | + + + + + + | A/G Ratio | 1.0Comment: Testing | 1.0 - 2.4 | EXTERNAL | | | | performed at [facility], [address] | | LAB | | | | [address], | | | | | | [place] [address] | | | | + + + + + + | Bilirubin | 0.7Comment: Testing | 0.1 - 1.5 mg/dL | EXTERNAL | | | Total | performed at [facility], [address] | | LAB | | | | [address], | | | | | | [place] [address] | | | | + + + + + + | ALP, | 208 (H)Comment: Testing | 35 - 115 U/L | EXTERNAL | | | External | performed at [facility], [address] | | LAB | | | | [address], | | | | | | [place] [address] | | | | + + + + + + | AST | 21Comment: Testing | 10 - 45 U/L | EXTERNAL | | | | performed at [facility], [address] | | LAB | | | | [address], | | | | | | [place] [address] | | | | + + + + + + | ALT | 21Comment: Testing | 10 - 65 U/L | EXTERNAL | | | | performed at [facility], [address] | | LAB | | | | [employer] [facility], | | | | | | [place] [address] | | | | + + + [...] | | | | | | at [facility], [address] | | | | | | [address], | | | | | | [place] [address] | | | | + + + [...] Testing performed | | | at [facility], [address] [place] [address] | | + + + + +---------+ [...] LAB | | | | performed at [facility];[address] | | | | | | [address] [facility];[place] | | | | | | [address] | | | | + + + + + + | [employer] | Comment: ACCESSION NO. | | EXTERNAL | | | CSF | | | LAB | | | | [id number] | | | | | | SOURCE | | | | | | CEREBROSPINAL | | | | | | FLUIDRESULT | | | | | | | | | | | | NEGATIVETesting | | | | | | performed at [facility] | | | | | | [facility], | | | | | | [address] | | | | | | [address] | | | | + + + + + + | CRYPTOCOCCU | REPORT STATUS | | EXTERNAL | | | S AG, CSF | FINAL | | LAB | | | | 11/08/2014Comment: | | | | | | Testing performed at | | | | | | [facility] | | | | | | Center, [address], | | | | | | [place] [address] | | | | + + + [...] | EXTERNAL LAB | | performed at [facility];[address] [place] [address];[place] [address] 027 NAP1 BI | | | 027 NAP1 BI PRESUMPTIVE NEGATIVE | | | Detection of 027 NAP1 BI strains of C. difficile is presumptive and | | | for epidemiological purposes and not intended to guide or monitor | | | treatment for C. difficile infections. Testing performed at [facility];[address] | | | [facility];[place] [address] | | + + + + +---------+ [...] TESTING. | | | Testing performed at [facility], [address] | | | [place] [address] | | + + + + +---------+ [...] EXTERNAL LAB | | Testing performed at [facility];[address] [place] [address];[place] [address] RESULT | | | NEGATIVE Reference range: [...] MICROLITER OF PATIENT SPECIMEN. Testing performed at [facility], | | | [address] [place] [address] COMMENT | | | SEE BELOW THIS TEST WAS DEVELOPED AND ITS | | | PERFORMANCE CHARACTERISTICS DETERMINED BY [facility]. THE U.S. FOOD AND | | | DRUG ADMINISTRATION (FDA) HAS NOT APPROVED OR CLEARED THIS TEST. | | | HOWEVER, FDA APPROVAL OR CLEARANCE IS CURRENTLY NOT REQUIRED FOR | | | CLINICAL USE OF THIS TEST. THE RESULTS ARE NOT INTENDED TO BE USED | | | THE SOLE MEANS FOR CLINICAL DIAGNOSIS OR PATIENT MANAGEMENT | | | DECISIONS. [facility] IS AUTHORIZED UNDER CLINICAL LABORATORY IMPROVEMENT | | | AMENDMENTS (CLIA) TO PERFORM HIGH-COMPLEXITY TESTING. Testing | | | performed at [facility], [address] [place] [address] | | + + + + +---------+ [...] | Testing performed at | | | [facility];[address] [facility];[place] [address] CULTURE | | | NO GROWTH | | | Testing performed at [facility], [address] [facility], | | | [place] [address] | | + + + + +---------+ [...] EXTERNAL LAB | | Testing performed at [facility];[address] [facility];[place] [address] ENTEROVIRUS | | | PCR NEGATIVE INTENDED USE: THE | | | [employer] XPERT EV ASSAY IS A REVERSE COMPUTER LAB AIDE POLYMERASE CHAIN | | | REACTION (RT-PCR) USING THE [employer] DX SYSTEM FOR THE | | | [...] RT-PCR Testing | | | performed at [facility], [address] [place] [address] | | + + + + +---------+ + + | Performing | Address | City/State/[facility] | Phone Number | | Organization | [...] EXTERNAL LAB | | Testing performed at [facility];[address] [place] [address];[place] [address] SOURCE | | | SEE BELOW CEREBROSPINAL FLUID | | | Testing performed by [facility] [place] [address] HSV DNA Type 1 | | | NOT DETECTED Testing performed at [facility], [address] | | | [place] [address] HSV DNA Type 2 | | | NOT DETECTED Testing performed at [facility], [address] [facility], | | | [place] [address] COMMENT | | | SEE BELOW A [...] THE DIAGNOSIS OF DISEASE. Testing performed at [facility], [address] | | | [address] [place] [id number] COMMENT | | | SEE BELOW THIS TEST WAS DEVELOPED AND ITS | | | PERFORMANCE CHARACTERISTICS DETERMINED BY [facility]. THE U.S. FOOD AND | | | DRUG ADMINISTRATION (FDA) HAS NOT APPROVED OR CLEARED THIS TEST. | | | HOWEVER, FDA APPROVAL OR CLEARANCE IS CURRENTLY NOT REQUIRED FOR | | | CLINICAL USE OF THIS TEST. THE RESULTS ARE NOT INTENDED TO BE USED | | | THE SOLE MEANS FOR CLINICAL DIAGNOSIS OR PATIENT MANAGEMENT | | | DECISIONS. [facility] IS AUTHORIZED UNDER CLINICAL LABORATORY IMPROVEMENT | | | AMENDMENTS (CLIA) TO PERFORM HIGH-COMPLEXITY TESTING. Testing | | | performed at [facility], [address] [facility] [address] | | + + + + +---------+ [...] EXTERNAL LAB | | Testing performed at [facility];[address];[place] [address] APPEARANCE | | | CLEAR Testing performed at | | | [facility];[address];[place] [address] Tube Number, CSF | | | 3 Testing performed at [facility];[address] | | [address];[place] [address] CSF RBC | | | 7 High Testing performed at [facility];[address] | | [address];[place] [address] CSF WBC | | | 2 Testing performed at [facility];[address];[place], [place] | | | [address] | | + + + + +---------+ [...] | EXTERNAL LAB | | performed at [address] [address] | | + + + + +---------+ [...] EXTERNAL LAB | | Testing performed at [facility];[address] [place] [address];[place] [address] | | + + + + +---------+ [...] EXTERNAL LAB | | Testing performed at [facility];[address] [place] [address];[place] [address] | | + + + + +---------+ [...] LAB | | | | performed at [facility] | | | | | | [address];[place], [place] | | | | | | [address] | | | | + + + [...] | | | | | DETERMINED BY [facility] | | | | | | LABORATORIES.SEE | | | | | | COMPLIANCE STATEMENT B: | | | | | | [employer]/CSTesting | | | | | | performed at [facility], [address] | | | | | | [facility] | | | | | | [facility] [place] [address] | | | | + + + [...] LAB | | | | performed at [facility] | | | | | | [facility], [address] | | | | | | [place] | | | | | | [address] | | | | + + + [...] | | | | | | [employer], [address] | | | | | | [place] | | | | | | [address] | | | | + + + [...] mental status, | | | transferred from [facility] on November 05, 2014. PRE [...] | | | possibility of "sound alike" hotel clerk errors, addition and/or | | | deletions [...] altered mental | | status, transferred from [facility] on November 05, 2014. PRE [...] The possibility of "sound alike" | | hotel clerk errors, addition and/or deletions may occur. If [...] system. The possibility of "sound a like" hotel clerk errors, addition and/or deletions may occur. If [...] IMMUNOSUPPRESSION. Testing | | | performed at [facility], [address] [place] [address] | | | [place] [address] | | + + + + +---------+ [...] | | | THIS TEST IN THE [facility] | | | | | | LABORATORY TEST | | | | | | DIRECTORY([employer]).T | | | | | | esting performed at | | | | | | [facility], [address] [facility] [address], | | | | | | [facility] [address] | | | | + + + + + + | IGG, CSF | 5.1Comment: Testing | 0.0 - 6.0 mg/dL | EXTERNAL | | | | performed at [facility], [address] | | LAB | | | | [facility] | | | | | | [facility] [address] | | | | + + + + + + | Albumin, | 32Comment: Testing | 0 - 35 mg/dL | EXTERNAL | | | CSF | performed at [facility], [address] | | LAB | | | | [facility] | | | | | | [facility] [address] | | | | + + + + + + | Albumin | 11.7 (H)Comment: Testing | 0.0 - 9.0 ratio | EXTERNAL | | | Index | performed at [facility], [address] | | LAB | | | | [facility] | | | | | | [facility] [address] | | | | + + + + + + | CSF | 0.16Comment: Testing | 0.09 - 0.25 | EXTERNAL | | | IgG/Albumin | performed at [facility], [address] | ratio | LAB | | | Ratio | [address], [facility] | | | | | | [facility] [address] | | | | + + + + + + | IgG Index | 0.46Comment: Testing | 0.28 - 0.66 | EXTERNAL | | | | performed at [facility], [address] | ratio | LAB | | | | [facility] | | | | | | [facility] [address] | | | | + + + + + + | CSF | NEGATIVEComment: | | EXTERNAL | | | Oligoclonal | REFERENCE RANGE: | | LAB | | | Bands | NEGATIVETesting | | | | | | performed at [facility], [address] | | | | | | [facility] | | | | | | [facility] [address] | | | | + + + [...] [address] | | | | | | [facility] | | | | | | [facility] [address] | | | | + + + + + + | IGG SYNTH | <0.0 (L)Comment: | 0.0 - 8.0 mg/d | EXTERNAL | | | RATE | REFERENCE RANGE: | | LAB | | | | <=8.0Testing performed | | | | | | at [facility], [address] [facility] | | | | | | [facility] [place] | | | | | | [address] | | | | + + + + + + | Albumin | 2,730 (L)Comment: | 3,500 - 5,200 | EXTERNAL | | | | Testing performed at | mg/dL | LAB | | | | [facility], [address], | | | | | | [facility] [address] | | | | + + + [...] Testing performed | | | at [facility], [address] [place] [address] | | + + + + +---------+ [...] GROWTH | | | Testing performed at [facility], | | | [address] [place] [address] | | + + + + +---------+ [...] EXTERNAL | | | | performed at [facility], [address] | | LAB | | | | [address], | | | | | | [place] [address] | | | | + + + + + + | Clarity | CLEARComment: Testing | | EXTERNAL | | | | performed at [facility], [address] | | LAB | | | | [address], | | | | | | [place] [address] | | | | + + + + + + | Specific | 1.014Comment: Testing | 1.002 - 1.030 | EXTERNAL | | | [place] | performed at [facility], [address] | | LAB | | | | [address], | | | | | | [place] [address] | | | | + + + + + + | Leukocyte | TRACE (A)Comment: | | EXTERNAL | | | Esterase, | Testing performed at | | LAB | | | Urine | [facility], [address] | | | | | | [place] | | | | | | [address] | | | | + + + + + + | Nitrite, | NEGATIVEComment: Testing | | EXTERNAL | | | Urine | performed at [facility], [address] | | LAB | | | | [address], | | | | | | [place] [address] | | | | + + + + + + | Urobilinoge | 0.2Comment: Testing | mg/dL | EXTERNAL | | | n, Urine | performed at [facility], [address] | | LAB | | | | [address], | | | | | | [place] [address] | | | | + + + + + + | Protein, | NEGATIVEComment: Testing | mg/dL | EXTERNAL | | | Urine | performed at [facility], [address] | | LAB | | | | [address], | | | | | | [place] [address] | | | | + + + + + + | pH, Urine | 7.0Comment: Testing | 5.0 - 8.0 | EXTERNAL | | | | performed at [facility], [address] | | LAB | | | | [address], | | | | | | [place] [address] | | | | + + + + + + | Blood, | SMALL (A)Comment: | | EXTERNAL | | | Urine | Testing performed at | | LAB | | | | [facility], [address] | | | | | | [place] | | | | | | [address] | | | | + + + + + + | Ketones | NEGATIVEComment: Testing | mg/dL | EXTERNAL | | | | performed at [facility], [address] | | LAB | | | | [address], | | | | | | [place] [address] | | | | + + + + + + | Bilirubin, | NEGATIVEComment: Testing | | EXTERNAL | | | Urine | performed at [facility], [address] | | LAB | | | | [address], | | | | | | [place] [address] | | | | + + + + + + | Glucose, | NEGATIVEComment: Testing | mg/dL | EXTERNAL | | | Urine | performed at [facility], [address] | | LAB | | | | [address], | | | | | | [place] [address] | | | | + + + + + + | WBC, UA | 16-25Comment: Testing | 0 - 5 /hpf | EXTERNAL | | | | performed at [facility], [address] | | LAB | | | | [address], | | | | | | [place] [address] | | | | + + + + + + | RBC, UA | 6-10Comment: Testing | 0 - 5 /hpf | EXTERNAL | | | | performed at [facility], [address] | | LAB | | | | [address], | | | | | | [place] [address] | | | | + + + + + + | Bacteria, | NONE SEENComment: | | EXTERNAL | | | UA | CULTURE TO FOLLOWTesting | | LAB | | | | performed at [facility], [address] | | | | | | [address], | | | | | | [place] [address] | | | | + + + + + + | Epithelial | 26-50Comment: Testing | /lpf | EXTERNAL | | | Cells | performed at [facility], [address] | | LAB | | | | [employer] [address], | | | | | | [place] [address] | | | | + + + + + + | HYALINE | 0-2Comment: Testing | | EXTERNAL | | | CASTS UA | performed at [facility], [address] | | LAB | | | | [address], | | | | | | [place] [address] | | | | + + + [...] MEDIPORT | | | Testing performed at [facility];[address] | | | [address];[place] [address] CULTURE | | | NO GROWTH | | | Testing performed at [facility], [address] [facility], [place], [place] | | | [address] | | + + + + +---------+ [...] LAC | | | Testing performed at [facility];[address] | | | [facility];[place] [address] CULTURE | | | NO GROWTH | | | Testing performed at [facility], [address] [facility], [place], [place] | | | [address] | | + + + + +---------+ [...] | | | | | performed at [facility];[address] | | | | | | [address];[place] | | | | | | [address] [...] [place] | | | | | | [address] | | | | + + + + + + | RED CELL | 4.38Comment: Testing | 3.70 - 5.10 | EXTERNAL | | | COUNT | performed at [facility], [address] | M/uL | LAB | | | | [address], | | | | | | [place] [address] | | | | + + + + + + | Hgb | 13.1Comment: Testing | 11.3 - 15.5 | EXTERNAL | | | | performed at [facility], [address] | g/dL | LAB | | | | [address], | | | | | | [place] [address] | | | | + + + + + + | Hematocrit, | 41.2Comment: Testing | 34.0 - 46.0 % | EXTERNAL | | | POC | performed at [facility], [address] | | LAB | | | | [address], | | | | | | [place] [address] | | | | + + + + + + | MCV | 94.0Comment: Testing | 80.0 - 100.0 fl | EXTERNAL | | | | performed at [facility], [address] | | LAB | | | [address], | | | | | | [place] [address] | | | | + + + + + + | MCH | 29.9Comment: Testing | 27.0 - 34.0 pg | EXTERNAL | | | | performed at [facility], [address] | | LAB | | | | [address], | | | | | | [place] [address] | | | | + + + + + + | MCHC | 31.8 (L)Comment: Testing | 32.0 - 35.5 | EXTERNAL | | | | performed at [facility], [address] | g/dL | LAB | | | | [address], | | | | | | [place] [address] | | | | + + + + + + | RDW-CV | 59.5 (H)Comment: Testing | 37 - 53 fl | EXTERNAL | | | | performed at [facility], [address] | | LAB | | | | [address], | | | | | | [place], [place] [address] | | | | + + + + + + | Platelet | 436 (H)Comment: Testing | 150 - 400 K/uL | EXTERNAL | | | Count | performed at [facility], [address] | | LAB | | | Plasma | [address], | | | | | | [place], [place] [address] | | | | + + + + + + | MPV | 8.2Comment: Testing | fl | EXTERNAL | | | | performed at [facility], [address] | | LAB | | | | [address], | | | | | | [place] [address] | | | | + + + + + + | Differentia | MANUALComment: Testing | | EXTERNAL | | | l Type | performed at [facility], [address] | | LAB | | | | [address], | | | | | | [place] [address] | | | | + + + + + + | Segmented | 69Comment: Testing | % | EXTERNAL | | | Neutrophils | performed at [facility], [address] | | LAB | | | Manual | [address], | | | | | | [place] [address] | | | | + + + + + + | Lymphocytes | 17Comment: Testing | % | EXTERNAL | | | Manual | performed at [facility], [address] | | LAB | | | | [address], | | | | | | [place] [address] | | | | + + + + + + | Monocytes | 14Comment: Testing | % | EXTERNAL | | | Manual | performed at [facility], [address] | | LAB | | | | [address], | | | | | | [place] [address] | | | | + + + + + + | Absolute | 17.00 (H)Comment: | 1.90 - 7.40 | EXTERNAL | | | Neutrophils | Testing performed at | K/uL | LAB | | | | [facility], [address] [facility] | | | | | | [place] | | | | | | [address] | | | | + + + + + + | Absolute | 4.19 (H)Comment: Testing | 1.00 - 3.90 | EXTERNAL | | | Lymphocytes | performed at [facility], [address] | K/uL | LAB | | | | [address], | | | | | | [place] [address] | | | | + + + + + + | Absolute | 3.45 (H)Comment: Testing | 0.00 - 0.80 | EXTERNAL | | | Monocytes | performed at [facility], [address] | K/uL | LAB | | | | [address], | | | | | | [place] [address] | | | | + + + + + + | RBC | 2+Comment: ANISONORMAL | | EXTERNAL | | | Morphology | PLT MORPHTesting | | LAB | | | | performed at [facility], [address] | | | | | | [address], | | | | | | [place] [address] | | | | | | | [...] EXTERNAL | | | | performed at [facility] [facility], [address] | | LAB | | | | [address], | | | | | | [place] [address] | | | | + + + [...] EXTERNAL | | | | performed at [facility], [address] | | LAB | | | | [address], | | | | | | [place] [address] | | | | + + + [...] [address], | | | | | | [place] [address] | | | | + + + + + + | K | 3.5Comment: Testing | 3.5 - 4.9 | EXTERNAL | | | | performed at TCL, [address] | mmol/L | LAB | | | | [address], | | | | | | [place] [address] | | | | + + + + + + | Cl | 95 (L)Comment: Testing | 99 - 109 mmol/L | EXTERNAL | | | | performed at TCL, [address] | | LAB | | | | [address], | | | | | | [place] [address] | | | | + + + + + + | CO2 | 25Comment: Testing | 23 - 32 mmol/L | EXTERNAL | | | | performed at TCL, [address] | | LAB | | | | [address], | | | | | | [place] [address] | | | | + + + + + + | Anion Gap | 12Comment: Testing | 5 - 20 mmol/L | EXTERNAL | | | | performed at TCL, [address] | | LAB | | | | [address], | | | | | | [place] [address] | | | | + + + + + + | Glucose, | 120 (H)Comment: Testing | 65 - 99 mg/dL | EXTERNAL | | | Fasting | performed at TCL, [address] | | LAB | | | | [address], | | | | | | [place] [address] | | | | + + + + + + | BUN | 8Comment: Testing | 8 - 25 mg/dL | EXTERNAL | | | | performed at TCL, [address] | | LAB | | | | [address], | | | | | | [place] [address] | | | | + + + + + + | Creatinine | 0.45 (L)Comment: Testing | 0.50 - 1.00 | EXTERNAL | | | | performed at TC, [address] | mg/dL | LAB | | | | [address], | | | | | | [place] [address] | | | | + + + + + + | BUN/Creatin | 18Comment: Testing | | EXTERNAL | | | ine Ratio | performed at TC, [address] | | LAB | | | | [address], | | | | | | [place] [address] | | | | + + + + + + | Calcium | 8.7Comment: Testing | 8.5 - 10.5 | EXTERNAL | | | | performed at TCL, [address] | mg/dL | LAB | | | | [address], | | | | | | [place] [address] | | | | + + + + + + | Protein, | 6.8Comment: Testing | 6.3 - 8.2 g/dL | EXTERNAL | | | Total | performed at TC, [address] | | LAB | | | | [address], | | | | | | [place] [address] | | | | + + + + + + | Albumin | 3.1 (L)Comment: Testing | 3.6 - 5.0 g/dL | EXTERNAL | | | | performed at [facility], [address] | | LAB | | | | [address], | | | | | | [place] [address] | | | | + + + + + + | Globulin | 3.7Comment: Testing | 1.3 - 4.9 g/dL | EXTERNAL | | | | performed at TC, [address] | | LAB | | | | [address], | | | | | | [place] [address] | | | | + + + + + + | A/G Ratio | 0.8 (L)Comment: Testing | 1.0 - 2.4 | EXTERNAL | | | | performed at [facility], [address] | | LAB | | | | [address], | | | | | | [place] [address] | | | | + + + + + + | Bilirubin | 0.8Comment: Testing | 0.1 - 1.5 mg/dL | EXTERNAL | | | Total | performed at TCL, [address] | | LAB | | | | [address], | | | | | | [place] [address] | | | | + + + + + + | ALP, | 214 (H)Comment: Testing | 35 - 115 U/L | EXTERNAL | | | External | performed at TCL, [address] | | LAB | | | | [address], | | | | | | [place] [address] | | | | + + + + + + | AST | 26Comment: Testing | 10 - 45 U/L | EXTERNAL | | | | performed at [facility], [address] | | LAB | | | | [address], | | | | | | [place] [address] | | | | + + + + + + | ALT | 29Comment: Testing | 10 - 65 U/L | EXTERNAL | | | | performed at [facility]CL, [address] | | LAB | | | | [employer], | | | | | | [place] [address] | | | | + + + [...] W | | | | | | [address], | | | | | | [place] [address] | | | | + + + [...] | | | | | [address];[place] [address] | | | | + + + + + -+ | RED CELL | 4.36Comment: Testing | 3.70 - 5.10 | EXTERNAL | | | COUNT | performed at [facility];[address] | M/uL | LAB | | | | [address];[place] | | | | | | [address] | | | | + + + + + -+ | Hgb | 13.1Comment: Testing | 11.3 - 15.5 | EXTERNAL | | | | performed at [facility];[address] | g/dL | LAB | | | | [address];[place] | | | | | | [address] | | | | + + + + + -+ | Hematocrit, | 40.2Comment: Testing | 34.0 - 46.0 % | EXTERNAL | | | POC | performed at [facility];[address] | | LAB | | | | [address];[place] | | | | | | [address] | | | | + + + + + -+ | MCV | 92.3Comment: Testing | 80.0 - 100.0 fl | EXTERNAL | | | | performed at [facility];[address] | | LAB | | | | [address];[place] | | | | | | [address] | | | | + + + + + -+ | MCH | 30.2Comment: Testing | 27.0 - 34.0 pg | EXTERNAL | | | | performed at [facility];[address] | | LAB | | | | [address];[place] | | | | | | [address] | | | | + + + + + -+ | MCHC | 32.7Comment: Testing | 32.0 - 35.5 | EXTERNAL | | | | performed at [facility];888 | g/dL | LAB | | | | [address];[place] | | | | | | [address] | | | | + + + + + -+ | RDW-CV | 59.5 (H)Comment: Testing | 37 - 53 fl | EXTERNAL | | | | performed at [facility];[address] | | LAB | | | | [address];[place] | | | | | | [address] | | | | + + + + + -+ | Platelet | 424 (H)Comment: Testing | 150 - 400 K/uL | EXTERNAL | | | Count | performed at [facility];[address] | | LAB | | | Plasma | [address];[place] | | | | | | [address] | | | | + + + + + -+ | MPV | 7.3Comment: Testing | fl | EXTERNAL | | | | performed at [facility];[address] | | LAB | | | | [address];[place] | | | | | | [address] | | | | + + + + + -+ | Differentia | AUTOMATEDComment: | | EXTERNAL | | | l Type | Testing performed at | | LAB | | | | [facility];[address] | [address];[place] [address] | | | | + + + + + -+ | % Segmented | 69.52Comment: Testing | % | EXTERNAL | | | | performed at [facility];[address] | | LAB | | | Neutrophils | [address];[place] | | | | | | [address] | | | | + + + + + -+ | % | 17.38Comment: Testing | % | EXTERNAL | | | Lymphocytes | performed at [facility];[address] | | LAB | | | | [address];[place] | | | | | | [address] | | | | + + + + + -+ | % Monocytes | 11.50Comment: Testing | % | EXTERNAL | | | | performed at [facility];[address] | | LAB | | | | [address];[place] | | | | | | [address] | | | | + + + + + -+ | % | 0.84Comment: Testing | % | EXTERNAL | | | Eosinophils | performed at [facility];[address] | | LAB | | | | [address];[place] | | | | | | [address] | | | | + + + + + -+ | % Basophils | 0.76Comment: Testing | % | EXTERNAL | | | | performed at [facility];[address] | | LAB | | | | [address];[place] | | | | | | [address] | | | | + + + + + -+ | Absolute | 17.37 (H)Comment: | 1.90 - 7.40 | EXTERNAL | | | Segmented | Testing performed at | K/uL | LAB | | | Neutrophils | [facility];[address] | | | | | | [address];[place] [address] | | | | + + + + + -+ | Absolute | 4.34 (H)Comment: Testing | 1.00 - 3.90 | EXTERNAL | | | Lymphocytes | performed at [facility];888 | K/uL | LAB | | | | [address];[place] | | | | | | [address] | | | | + + + + + -+ | Absolute | 2.87 (H)Comment: Testing | 0.00 - 0.80 | EXTERNAL | | | Monocytes | performed at [facility];[address] | K/uL | LAB | | | | [address];[place] | | | | | | [address] | | | | + + + + + -+ | Absolute | 0.21Comment: Testing | 0.00 - 0.50 | EXTERNAL | | | Eosinophils | performed at [facility];[address] | K/uL | LAB | | | | [address];[place] | | | | | | [address] | | | | + + + + + -+ | Absolute | 0.19 (H)Comment: Testing | 0.00 - 0.10 | EXTERNAL | | | Basophils | performed at [facility];[address] | K/uL | LAB | | | | [address];[place] | | | | | | [address] | | | | + + + + + -+ | RBC | 1+Comment: ANISONORMAL | | EXTERNAL | | | Morphology | PLT MORPHTesting | | LAB | | | | performed at [facility];[address] | | | | | | [address];[place] | | | | | | [address] | | | | | | | | | | + + + + + -+ | Na | 133 (L)Comment: Testing | 135 - 143 | EXTERNAL | | | | performed at [facility];888 | mmol/L | LAB | | | | [address];[place] | | | | | | [address] | | | | + + + + + -+ | K | 3.6Comment: Testing | 3.5 - 4.9 | EXTERNAL | | | | performed at [facility];888 | mmol/L | LAB | | | | [address];[place] | | | | | | [address] | | | | + + + + + -+ | Cl | 95 (L)Comment: Testing | 99 - 109 mmol/L | EXTERNAL | | | | performed at [facility];[address] | | LAB | | | | [address];[place] | | | | | | [address] | | | | + + + + + -+ | CO2 | 28Comment: Testing | 23 - 32 mmol/L | EXTERNAL | | | | performed at [facility];[address] | | LAB | | | | [address];[place] | | | | | | [address] | | | | + + + + + -+ | Anion Gap | 13Comment: Testing | 5 - 20 mmol/L | EXTERNAL | | | | performed at [facility];[address] | | LAB | | | | [address];[place] | | | | | | [address] | | | | + + + + + -+ | Glucose, | 123 (H)Comment: Testing | 65 - 99 mg/dL | EXTERNAL | | | Fasting | performed at [facility];[address] | | LAB | | | | [address];[place] | | | | | | [address] | | | | + + + + + -+ | BUN | 7 (L)Comment: Testing | 8 - 25 mg/dL | EXTERNAL | | | | performed at [facility];[address] | | LAB | | | | [address];[place] | | | | | | [address] | | | | + + + + + -+ | Creatinine | 0.76Comment: Testing | 0.50 - 1.00 | EXTERNAL | | | | performed at [facility];888 | mg/dL | LAB | | | | [address];[place] | | | | | | [address] | | | | + + + + + -+ | BUN/Creatin | 10Comment: Testing | | EXTERNAL | | | ine Ratio | performed at [facility];[address] | | LAB | | | | [address];[place] | | | | | | [address] | | | | + + + + + -+ | Calcium | 8.2 (L)Comment: Testing | 8.5 - 10.5 | EXTERNAL | | | | performed at [facility];888 | mg/dL | LAB | | | | [address];[place] | | | | | | [address] | | | | + + + + + -+ | Protein, | 6.6Comment: Testing | 6.3 - 8.2 g/dL | EXTERNAL | | | Total | performed at [facility];[address] | | LAB | | | | [address];[place] | | | | | | [address] | | | | + + + + + -+ | Albumin | 2.7 (L)Comment: Testing | 3.6 - 5.0 g/dL | EXTERNAL | | | | performed at [facility];[address] | | LAB | | | | [address];[place] | | | | | | [address] | | | | + + + + + -+ | Globulin | 4.0Comment: Testing | 1.3 - 4.9 g/dL | EXTERNAL | | | | performed at [facility];[address] | | LAB | | | | [address];[place] | | | | | | [address] | | | | + + + + + -+ | A/G Ratio | 0.7 (L)Comment: Testing | 1.0 - 2.4 | EXTERNAL | | | | performed at [facility];[address] | | LAB | | | | [address];[place] | | | | | | [address] | | | | + + + + + -+ | Bilirubin | 0.7Comment: Testing | 0.1 - 1.5 mg/dL | EXTERNAL | | | Total | performed at [facility];[address] | | LAB | | | | [address];[place] | | | | | | [address] | | | | + + + + + -+ | ALP, | 251 (H)Comment: Testing | 35 - 115 U/L | EXTERNAL | | | External | performed at [facility];[address] | | LAB | | | | [address];[place] | | | | | | [address] | | | | + + + + + -+ | AST | 33Comment: Testing | 10 - 45 U/L | EXTERNAL | | | | performed at [facility];[address] | | LAB | | | | [address];[place] | | | | | | [address] | | | | + + + + + -+ | ALT | 36Comment: Testing | 10 - 65 U/L | EXTERNAL | | | | performed at [facility];[address] | | LAB | | | | [facility];[place], [place] | | | | | | [address] | | | | + + + [...] | | | | | | at [facility];[address] [facility] | | | | | | vd;[place] [address] | | | | + + + + + -+ | CK, Total | 50Comment: Testing | 30 - 240 U/L | EXTERNAL | | | | performed at [facility];[address] | | LAB | | | | [facility];[place] | | | | | | [address] | | | | + + + [...] | | | | | performed at [facility];[address] | | | | | | [address];[place] | | | | | | [address] | | | | + + + + + -+ | aPTT, | 33 (H)Comment: Testing | 23 - 32 seconds | EXTERNAL | | | Patient | performed at [facility];[address] | | LAB | | | | [address];[place] | | | | | | [address] | | | | + + + + + -+ | CK-MB | 0.6Comment: Testing | 0.5 - 3.6 ng/mL | EXTERNAL | | | | performed at [facility];[address] | | LAB | | | | [address];[place] | | | | | | [address] | | | | + + + [...]
--- OUTSIDE RECORDS SUMMARY | ~2019-03-09 | XMS | Encounter Summary ---
Demographics + + + | Address | [address] | | | [place] [address] | + + + | Home Phone | | + + + | Preferred Language | Unknown | + + + | Marital Status | | + + + | Alevism Affiliation | Unknown | + + + | Race | Unknown | + + + | Ethnic Group | Unknown | + + + Author + + + | Author | [facility] | | | and [place] | + + + | Organization | [facility] | | | [...] Providers + +------+ + | Care Table Games Floor Supervisor Name | Role | Phone | + +------+ + | No, Physician | PCP | Unavailable | + +------+ + Encounter Details +--------+ + + + + | Date | Type | Department | Care Team | Description | +--------+ + + + + | 04/12/ | Orders Only | [facility] | [place], | | | 2018 | | GENERAL SURGERY [address] | [address] | | | | | [address] | [address] | | | | | [place], [place] | [place] [address] | | | | | [address] | [phone] | | | | | [phone] | | | +--------+ + + + [...] [address] | | | | | | [place] [address] | | | | | | [phone] | | | | | | | [...]
--- OUTSIDE RECORDS SUMMARY | ~2019-03-09 | XMS | Encounter Summary ---
Demographics + + + | Address | [address] | | | [place] [address] | + + + | Home Phone [...] [place], [place] | | | | | [address] | | + + + + + | Cami Sawyer | ECON | Unknown | | + + + + + Care Team Providers + +------+ + | Care Wood Heel Back Liner Name | Role | Phone | + [...] 2015 | | General Surgery at | SLIP TENDER [address] | | | | | [address] | [address] | | | | | [address] | [place], [place] | | | | | Mailcode: [id number] | [address] | | | | | [facility] | [phone] | | | | | [address] [facility] [place] | | | | | | [address] | | | | | | [phone] | | | +--------+ + + + [...]
--- OUTSIDE RECORDS SUMMARY | ~2019-03-09 | XMS | Clinical Summary ---
Demographics + + + | Address | [address] | | | [place] [address] | + + + | Home Phone | | + + + | Preferred Language | Unknown | + + + | Marital Status | | + + + | Taoist Affiliation | NRP | + + + | Race | White | + + + | Ethnic Group | Not or | + + + Author + + + | Author | [facility] | + + + | Organization | [facility] | + + + | Address | Unknown | + + + | Phone | Unavailable | + + + Support + + + + + | Name | Relationship | Address | Phone | + + + + + | Kole Willingham | ECON | [address] | | | | | [place], [place] | | | | | [address] | | + + + + + | Cami Sawyer | ECON | Unknown | | + + + + + Care Team Providers + +------+ + | Care Research Consultant Name | Role | Phone | + +------+ + | Aren Rose DO | PCP | | + +------+ + Source Comments ARTUR is fully live on both EpicCare Ambulatory and EpicCare InPatient.[facility] Allergies + + + + + [...] + | Overview: Vaccinations given at [facility] pneumonia and flu and | | at [facility] and meningeal coccal 04/25 | + [...] | | | | | | | [address] | | + +--------+ +--------+ + +--------+ | [employer] | A[employer] | xxxxxxxxx-x | 04/11/19 | [phone] | [address] | Indemn | | RETIRED PEOPLE | | | 13-Pre | 9 | [id number] | ity | | | | | sent | | [place], [place] | | | | | | | | [address] | | + +--------+ +--------+ + +--------+ [...] | 1956 | [phone] | [place] [address] | | | bianca | | | 8 (Home) | | | | | | | [phone] | | | | | | | [...]
--- OUTSIDE RECORDS SUMMARY | ~2019-03-09 | XMS | Encounter Summary ---
Demographics + + + | Address | [address] | | | [place] [address] | + + + | Home Phone [...] [place], [place] | | | | | [address] | | + + + + + | Cami Sawyer | ECON | Unknown | | + + + + + Care Team Providers + +------+ + | Care Tire Design Engineer Name | Role | Phone | [...] 2011 | Event | [address] | [address] | | | | | [facility] | [address] | | | | | Hospital Admitting | [place], [place] | | | | | Desk Located on the | [address] | | | | | 9th floor | [phone] | | | | | [facility] [place] | | | | | | [address] | Bigg Smalls MD | | | | | | [address] | | | | | | [address] | | | | | | [place], [place] | | | | | | [address] | | | | | | [phone] | | | | | | | [...] | Froylan Vázquez CRNA 15 min. Break 2543-8502 | | | 9 | | | [...] Smith RN | | Tanvi | | CLOTHESPIN MACHINE OPERATOR | | | y Cath | | [...] Cole RN | | Periph | | CLOTHESPIN MACHINE OPERATOR | | | eral | | | [...]
--- OUTSIDE RECORDS SUMMARY | ~2019-03-09 | XMS | Encounter Summary ---
Demographics + + + | Address | [address] | | | [place] [address] | + + + | Home Phone [...] Team Providers + +------+ + | Care Aluminum Container Tester Name | Role | Phone | + +------+ + PCP | Unavailable | + +------+ + Encounter Details +--------+ + + + + | Date | Type | Department | Care Team | Description | +--------+ + + + + | 10/09/ | Hospital | [facility] | Conversion | | | 2016 | Encounter | [facility] | Transaction, | | | | | [address] | Provider Unknown | | | | | [place], [place] | | | | | | [address] | (Fax) | | | | | [phone] | | | +--------+ + + + [...]
--- OUTSIDE RECORDS SUMMARY | ~2019-03-09 | XMS | Encounter Summary ---
Demographics + + + | Address | [address] | | | [place] [address] | + + + | Home Phone [...] [place], [place] | | | | | [address] | | + + + + + | Cami Sawyer | ECON | Unknown | | + + + + + Care Team Providers + +------+ + | Care Public School Teacher Name | Role | Phone | [...] | 2011 | Encounter | [address] [facility] | | | | | | [facility] | | | | | | [facility] | | | | | | [place], [place] | | | | | | [address] | | | | | | [phone] | | | +--------+ + + + [...]
--- OUTSIDE RECORDS SUMMARY | ~2019-03-09 | XMS | Encounter Summary ---
Demographics + + + | Address | [address] | | | [place] [address] | + + + | Home Phone | | + + + | Preferred Language | Unknown | + + + | Marital Status | | + + + | Worship Affiliation | Unknown | + + + | Race | Unknown | + + + | Ethnic Group | Unknown | + + + Author + + + | Author | [facility] | | | and [place] | + + + | Organization | [facility] | | [...] Team Providers + +------+ + | Care General Counselor Name | Role | Phone | + +------+ + PCP | Unavailable | + +------+ + Reason for Visit + + + | Reason | Comments | + + + | Follow-up | | + + + Encounter Details +--------+ + + + + | Date | Type | Department | Care Team | Description | +--------+ + + + + | 03/12/ | Telephone | [facility] | [place], | Follow-up | | 2019 | | GENERAL SURGERY [address] | [address] | | | | | [address] | [address] | | | | | [place], [place] | [place] [address] | | | | | [address] | [phone] | | | | | [phone] | | | +--------+ + + + [...] [address] | | | | | | [place] [address] | | | | | | [phone] | | | | | | | [...]
--- OUTSIDE RECORDS SUMMARY | ~2019-03-09 | XMS | Encounter Summary ---
Demographics + + + | Address | [address] | | | [place] [address] | + + + | Home Phone | | + + + | Preferred Language | Unknown | + + + | Marital Status | | + + + | Islam Affiliation | NRP | + + + [...] [place], [place] | | | | | [address] | | + + + + + | Cami Sawyer | ECON | Unknown | | + + + + + Care Team Providers + +------+ + | Care Chemical Inspector Name | Role | Phone | [...] | | 2016 | | Center at [facility] [address] | [address] | | | | | [address] | [facility] | | | | | Mailcode: [place] | [place] [address] | | | | | [facility] and | [phone] | | | | | [place] [address] | | | | | | [place], [place] | | | | | | [address] | | | | | | [phone] | | | +--------+ + + + [...]
--- OUTSIDE RECORDS SUMMARY | ~2019-03-09 | XMS | Encounter Summary ---
Demographics + + + | Address | [address] | | | [place] [address] | + + + | Home Phone | | + + + | Preferred Language | Unknown | + + + | Marital Status | | + + + | Zoroastrian Affiliation | Unknown | + + + [...] Team Providers + +------+ + | Care Case Operator Name | Role | Phone | [...] Provider Unknown | | | | | [place], [place] | [phone] | | | | | [address] | | | | | | [phone] | | | +--------+ + + + [...] | | | | | | [place] [address] | | | | | | [phone] | | | | | | | [...]
--- OUTSIDE RECORDS SUMMARY | ~2019-03-09 | XMS | Encounter Summary ---
Demographics + + + | Address | [address] | | | [place] [address] | + + + | Home Phone [...] [place], [place] | | | | | [address] | | + + + + + | Cami Sawyer | ECON | Unknown | | + + + + + Care Team Providers + +------+ + | Care Boot Maker Name | Role | Phone | [...] | | | 2011 | Event | [facility] | [address] | | | | | Admitting Desk | [address] | | | | | Located on the [address] | [place], [place] | | | | | floor [address] | [address] | | | | | [address] | [phone] | | | | | [place], [place] | | | | | | [address] | Bigg Smalls MD | | | | | | [address] | | | | | | [address] | | | | | | [facility] [place] | | | | | | [address] | | | | | | [phone] | | | | | | | [...] | 0 | Quick Note | Froylan Váqzuez CRNA 15 min. Break [id number] | | | 9 | | | [...] Smith RN | | Tanvi | | LENS ENGRAVER | | | y Cath | | [...] Cole RN | | Periph | | LENS ENGRAVER | | | eral | | | [...]
--- OUTSIDE RECORDS SUMMARY | ~2019-03-09 | XMS | Encounter Summary ---
Demographics + + + | Address | [address] | | | [place] [address] | + + + | Home Phone [...] Team Providers + +------+ + | Care Pressure Tester Operator Name | Role | Phone | [...] Provider Unknown | | | | | [place], [place] | [phone] | | | | | [address] | | | | | | [phone] | | | +--------+ + + + [...] | | | | | | [place] [address] | | | | | | [phone] | | | | | | | [...]
--- OUTSIDE RECORDS SUMMARY | ~2019-03-09 | XMS | Encounter Summary ---
Demographics + + + | Address | [address] | | | [place] [address] | + + + | Home Phone [...] [place], [place] | | | | | [address] | | + + + + + | Cami Sawyer | ECON | Unknown | | + + + + + Care Team Providers + +------+ + | Care Nuclear Waste Process Operator Name | Role | Phone | [...] | | | | Hospital Admitting | [place], [place] | | | | | Desk Located on the | [address] | | | | | 9th floor | [phone] | | | | | [place], [place] | | | | | | [address] | | | +--------+---------+ + + + [...] [facility]. 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 At arrival to [facility] it was learned that she did NOT indeed have ischemic colitis. 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 She underwent embolectomy on 03/17, which resulted in jewish of flow and no loss of tissue [...] was agreed that the patient needed a dedicated intermodal truck driver treatment and we settled o n remicade. [...] flagyl - which was continued throughout the [facility]. However, vanc/cefepime/flagyl was used instead for [...] Destination: Home Other Discharge Orders and Instructions route sales delivery drivers supervisor your lovenox syringes at the [facility]. Go to the hospital on Tuesday [...] whether or not the INR is truly tax compliance representative of anticoagulation. In patients with [...] I NR on Tuesday. KIRIT RUST MD [facility] DEPARTMENT: [id number]- [facility] Faculty PPV Place of Service:- Inpatient Date of Service: 04/01/2012 CSN: [id number] Suggested Modifier: GC Resident Involved: Yes Suggested CPT: 54324- Dishcarge < 30 min Electronically signed by [...] questions. Debi Oconnor MD GI/Hepatology Fellow Pager: [phone] INTERVAL HISTORY: MRI abdomen shows no abscess; [...] risk of emboli, I called Dr. Rodriges (propellant charge zone assembler for her PCP) to coordinate f/u of [...] RUST MD [facility] DEPARTMENT: [id number]- [facility] Faculty PPV Place of Service:- Inpatient Date of Service: 03/31/2012 CSN: [id number] Suggested Modifier: GC Resident Involved: Yes Suggested CPT: 01926- Subsequent, Detailed/high complex, 35 min Davonte De [...] state: J Gastroenterol. 2004 Oct;39(10):948-54. PubMed PMID: [id number]. Consulted Heme for further studies on platelet [...] no insurance. Wanting to go home for [place]. Nurse repor ts that she has admitted [...] notes for assessment and pl an. Nuñez [place], Sub-Parcel Post Weigher Pgr: [phone] Ajay De La Rosa MD - 03/30/2012 11:39 PM [facility]3 Internal Medicine Attending Interval note - [...] bridge after d/c until coumading therapeutic with foster care worker through medication assistance program Hypoalbuminemia [...] MD YOCASTA [facility] DEPARTMENT: [id number]- [facility] Faculty PPV Place of Service:- Inpatient Date of Service: 03/30/2012 CSN: [id number] Suggested Modifier: GC Resident Involved: Yes Suggested CPT: 77941- Subsequent, Detailed/high complex, 35 min Debi Yepez [...] follow closely Shaun SAEED GI Fellow Pg [phone] signed by Debi Oconnor MD at 03/30/2012 5:32 PM Jacoby Ko MD - 03/30/2012 10:25 AM PSTFormatting of this note might be different from the origi nal. [facility] DEPARTMENT OF SURGERY Daily Progress Note PROGRESS [...] concerns. Jacoby Tovar MD Surgery, R2 Diagnoses: [id number] Crohn disease This assessment and plan was [...] state: J Gastroenterol. 2004 Jan;39(10):948-54. PubMed PMID: [id number]. Consulted Heme for further studies on platelet [...] different from the [facility]. Transfer Accept Note Patient: Mackenzie Hartley [...] Nathan Weeks MD Internal Medicine PGY1 Pager [phone] Cecilia Baker MD - 03/29/2012 6:37 PM [...] team. Debi Oconnor MD GI Fellow Pager [phone] signed by Deib Oconnor MD at 03/29/2012 3:36 PM PSTDiSa [...] planning) Debi Oconnor MD Fellow, Gastroenterology pager: [phone] signed by Debi Oconnor MD at 03/29/2012 [...] for this encounter. OSBALDO GARCIA MD [facility] [address] [place] [address] Andrew Shah MD - 10:41 AM PST [facility] DEPARTMENT OF SURGERY Daily Progress Note PROGRESS [...] GI Jacoby Tovar MD Surgery, R2 Diagnoses: [id number] Crohn disease This assessment and plan was [...] provided conscious sedation. OSBALDO GARCIA MD [facility] [address] [place] [address] I spent 35 min in critical care (not including procedures) [facility] DEPARTMENT: MICU, [facility]- [id number] Place of Service: - Date of Service: 03/29/2012 CSN: [id number] Modifiers:GC Resident Involved: yes Suggested CPT: 28976 Critical Care, Initial 30-74 minutes Carlton Godwin [...] OR this morning for repair of fis jya but this was postponed and she was [...] day of transfer to MICU (1 05/29/11), [facility] informed us that according to the [...] 0659 03/29/12 07 - 03/30/12 0659 Shift 8259-7893 7654-5444 8704-7786 Daily Total 8741-0530 4878-8728 3265-4524 Daily Total I N T A K E P.O. 1750 2525 4275 I.V. 934 6658 890 5766 Shift Total 934 3740 3450 8124 O U T P U T Urine 1075 2950 1875 5900 Urine 1075 2950 1875 5900 Other 575 579 134 8068 Measured Stool Output 350 425 775 Stool/Urine Mix 575 575 Shift Total 1650 3300 2300 7250 NET -167 804 9127 874 Intake/Output Summary (since admission) at 03/12/12 1910 Last data filed at 03/29/12 0547 Gross for the last 17 days Intake 67559 ml Output 08724 ml Net since Admission -17677 ml Physical Exam: General Appearance: middle aged [...] Carlton Betancourt DO PGY-1 Internal Medicine Pager [phone] Debi Yepez MD - 03/11 4:31 PM [...] questions. Debi Oconnor MD GI/Hepatology Fellow Pager: [phone] INTERVAL HISTORY: Episode of melena last night then bright red blood per rectum this morning Hemodynamically stable but decrease in hct from 30 to 24 Transferred to [facility] INPATIENT MEDICATIONS acetaminophen (aka TYLENOL) tablet 650 [...] in the past. OSBALDO GARCIA MD [facility] [address] [id number] [address] I spent 35 min in critical care (not including procedures) EPIC DEPARTMENT: [facility], [facility]- [id number] Place of Service: Date of Service: 03/28/2012 CSN: [id number] Modifiers:GC Resident Involved: yes Suggested CPT: 98859 Critical Care, Initial 30-74 minutes Carlton Godwin [...] 0659 03/28/12 07 - 03/29/12 0659 Shift 4817-4765 8400-4887 0082-2541 Daily Total 4649-7844 6379-9298 2187-6162 Daily Total I N T A K E P.O. 240 300 540 I.V. 404 404 934 934 Blood 1300 1300 Shift Total 410 674 8629 2244 934 934 O U T P [...] Gross for the last 16 days Intake 74365 ml Output 36555 ml Net since Admission -11163 ml Physical Exam: General Appearance: tearful middle [...] Carlton Betancourt DO PGY-1 Internal Medicine Pager [phone] Andrew Shah MD - 6:52 AM PST [...] Andrew Babin MD at 03/28/2012 4:27 PM aGyla Mccann MD - 03/28/2012 6:52 AM PST [...] Sukumar Zuniga DO Internal Medicine PGY-2 Pg [phone] Davonte De La Rosa MD - 03/27/2012 [...] noted any additions above. KIRITYann RUST MD [facility] DEPARTMENT: [id number]- [facility] Faculty PPV Place of Service:- Inpatient Date of Service: 03/27/2012 CSN: [id number] Suggested Modifier: Resident Involved: Yes Suggested CPT: 03279- Subsequent, Detailed/high complex, 35 min Marely Mccann [...] was discussed and formulated with gastroenterology at [facility], Dr. Hennessy. Please call with any questions. Debi Oconnor MD GI/Hepatology Fellow Pager: [phone] INTERVAL HISTORY: Imaging reviewed with radiology; too [...] Dung Victor - 2 11:30 AM PST CUSTOMS VERIFIER NOTE: Visited with Patient. 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 [place] Drill Operator team will follow as needed. Chaplain Dung Riley M.Div., [facility] [phone] Pager #[phone]; #[phone] Xin De La Rosa MD - 7:31 [...] J Gastroenterol. 2004 Jan;39(10):948-54. PubMed PMID: [id number]. Consulted Heme for further studies on platelet [...] an. ---- Joaquin Rivera, MS4 Pager # [phone] signed by Xin Rust MD at 03/27/2012 [...] RUST MD [facility] DEPARTMENT: [id number]- [facility] Faculty PPV Place of Service:- Inpatient Date of Service: 03/26/2012 CSN: [id number] Suggested Modifier: GC Resident Involved: Yes Suggested CPT: 23473- Subsequent, Detailed/high complex, 35 min aphael Norman [...] kg/(m^2). 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 Raphael Norman MD Internal Medicine, PGY-2 04003 Xin De La Rosa MD - 03/25/2012 [...] persists - not larger Resident spoke with executive vice president business development who spoke with staff - they did [...] taking more PO if still low ask production line mechanic to see Hypophosphatemia (03/14/2012) Assessment: rechecked and [...] MD YOCASTA [facility] DEPARTMENT: [id number]- [facility] Faculty PPV Place of Service:- Inpatient Date of Service: 03/25/2012 CSN: [id number] Suggested Modifier: Resident Involved: Yes Suggested CPT: 42266- Subsequent, Detailed/high complex, 35 min oaquin Rivera [...] J Gastroenterol. 2004 Jan;39(10):948- 54. PubMed PMID: [id number]. Consulted [facility] for further studies on platelet inhibitor [...] an. ---- Joaquin Rivera, MS4 Pager # [phone] Ajay De La Rosa MD - 03/24/2012 [...] drainage of abscess and coordination of care [facility] radiology reviewing perirectal abscess imaging, [...] MD YOCASTA [facility] DEPARTMENT: [id number]- [facility] Faculty PPV Place of Service:- Inpatient Date of Service: 03/24/2012 CSN: [id number] Suggested Modifier: Resident Involved: Yes Suggested CPT: 41985- Subsequent, Detailed/high complex, 35 min Davonte De La Rosa MD - 03/24/2012 8:19 AM PSTI personally interviewed the patient, performed the perti nent parts of the physical examination and personally formulated the plan with the resident. I agree with the MS4 documentation and have documented any additions or exceptions in my p rogress note. oJaquin Hui - 03/24/2012 8:19 AM PST Medicine [...] J Gastroenterol. 2004 Jan;39(10):948- 54. PubMed PMID: [id number]. Consulted Heme for further studies on platelet [...] an. ---- Joaquin Nicole, MS4 Pager # [phone] Ajay De La Rosa MD - 03/23/2012 [...] MD YOCASTA [facility] DEPARTMENT: [id number]- [facility] Faculty PPV Place of Service:- Inpatient Date of Service: 03/23/2012 CSN: [id number] Suggested Modifier: GC Resident Involved: Yes Suggested CPT: 95731- Subsequent, Detailed/high complex, 35 min Davonte De [...] be done today JERI DIAZ MD [facility] [address] [place] [address] Xin De La Rosa MD - 03/23/2012 [...] state: J Gastroenterol. 2004 Jan;39(10):948-54. PubMed PMID: [id number]. Consulted Heme for further studies on platelet [...] for assessment and pl an. ---- Joaquin Rivear, VIVIANA Pager # [phone] Ajay De La Rosa MD - 03/22/2012 [...] MD YOCASTA [facility] DEPARTMENT: [id number]- [facility] Faculty PPV Place of Service:- Inpatient Date of Service: 03/22/2012 CSN: [id number] Suggested Modifier: Resident Involved: Yes Suggested CPT: 22641- Subsequent, Detailed/high complex, 35 min ox, Jeri [...] duplex ordered today JERI DIAZ MD [facility] [address] [place] [address] Xin De La Rosa MD - 03/22/2012 [...] PTT in mixing 1:1 Neg cardiolipin, neg sugd-U-hbzvnavvhgud Legionella Agg Urine pending Cultures: BLOOD CULTURE [...] barber: J Gastroenterol. 2004 Jan;39(10):948-54. PubMed PMID: [id number]. - Consult Heme for further studies on [...] an. ---- Joaquin Rivera, MS4 Pager # [phone] Ajay De La Rosa MD - 03/21/2012 [...] 142/76 | Pulse 106[sinus tach per telephone diaphragm assembler[ | Temp 37.7 C (99.9 F) | [...] with pharmD. [facility] DEPARTMENT: [id number]- [facility] Faculty PPV Place of Service:- Inpatient Date of Service: 03/21/2012 CSN: [id number] Suggested Modifier: AKHIL Resident Involved: Yes Suggested CPT: 80870- Subsequent, Detailed/high complex, 35 min Jennifer Tolentino [...] Date INRPT 2.09* 03/21/2012 Assessment and Plan: Makcenzie Hartley is a 56 y.o. Female with multiple complex medical problems; [facility] Vascular Surge ry consulted due to [...] new baseline Ok to discharge per [facility] Vascular Surgeons once ambulating and medical issues are stable. Will continue to follow while in patient. [facility] Vascular Surgery Clinic, [address], phone number [phone] Please schedule followup appointment within 2-3 weeks of surgery for wound check. Dr. Sukumar Salgado, [facility] Vascular Surgery Attending. MERT OLIVA [facility] VASCULAR SURGERY [facility] [place] [address] hamMoses MD - 03/21/2012 6:55 AM PSTAgree [...] w ill need to establish care with box folding machine operator so that further treatment options [...] assessment and plan. Moses [place] MD Neurology Parcel Post Weigher Pager [phone] oaquin Rivera - 02/2012 6:55 AM PST [...] an. ---- Joaquin Rivera, MS4 Pager # [phone] Xin De La Rosa M D - 03/20/2012 11:09 PM [facility]3 Internal Medicine Attending Interval note Hospital [...] MD YOCASTA [facility] DEPARTMENT: [id number]- [facility] Faculty PPV Place of Service:- Inpatient Date of Service: 03/20/2012 CSN: [id number] Suggested Modifier: Resident Involved: Yes Suggested CPT: 81665- Subsequent, Detailed/high complex, 35 min ennifer Staples, [facility] - 03/20/2012 3:36 PM PST . [...] Female with multiple complex medical problems; [facility] Vascular Surge ry consulted due to [...] chair as tolerated, RLE WBAT -Please obtain [facility] Lab Arterial duplex ultrasound/DELORIS of both legs prior to discharge as n ew baselineObtain ABIs with waveforms To establish new blood-flow baseline Ok to discharge per [facility] Vascular Surgeons once ambulating and medical issues are stable. Will continue to follow while in patient. [facility] Vascular Surgery Clinic, [address], phone number [phone] Please schedule followup appointment within 2-3 weeks of surgery for wound check. Dr. Sukumar Salgado, [facility] Vascular Surgery Attending. MERT OLIVA [facility] VASCULAR SURGERY [address] [place] [address] aphael Norman - 7:58 AM PSTI agree [...] plan. Raphael Norman MD Internal Medicine, PGY-2 [id number] rinJoaquin dowd - 2011 7:58 AM PST [...] an. ---- Joaquin Rivera, MS4 Pager # [phone] Juma Pimentel MD - 12/2011 3:35 PM [...] is Dr. Salgado. JUMA CARRINGTON MD [facility] [address] [place] [address] Chary Moore M D - 03/19/2012 9:14 [...] note from 03/14 for details. Therefore the kttc-jjiq-smixu plan givens s been to allow her [...] Lovenox bridge to be covered by [facility]. 9) Occlusive thrombus 10) Hypoalbuminemia 11) Hypophosphatemia 12) TIA (transient ischemic attack) - with PFO 13) PFO (patent foramen ovale) - plan is for lifelong coumadin. No additional benefit from device closure per CLOSURE I trial. Chary Doherty MD Chief Resident, Internal Medicine Pager: [phone] [facility] DEPARTMENT: Hosp- [id number] Place of Service: - Date of Service: 03/19/2012 CSN: [id number] Modifiers:GC Resident Involved: Yes Suggested CPT: 51865 Subsequent Visit Detailed/High complexity 35 min I [...] will need to establish c are with box folding machine operator so that further treatment options [...] assessment and plan. Moses [place] MD Neurology Parcel Post Weigher Pager [phone] tJose Antonio prado MD - 03/18/2012 1:01 [...] outpt GI, plans to establish care in [place], perhaps Dr. Byrd. Transitioning to PO meds, [...] Doherty MD Chief Resident, Internal Medicine Pager: [phone] [facility] DEPARTMENT: Hosp- [id number] Place of Service: - Date of Service: 03/18/2012 CSN: [id number] Modifiers: Resident Involved: Yes Suggested CPT: 80902 Subsequent Visit Exp Prob Foc/Mod Complexity 25 [...] Date 03/18/12 0700 - 03/19/12 0659 Shift 1785-6010 1874-1650 6598-0132 24 Hour Total I N T A K E P.O. 620 620 I.V. 20 20 40 Shift Total 640 20 660 O U T P U T Urine 675 100 775 Other 400 400 Shift Total 084 899 5358 Weight (kg) 74.1 74.1 74.1 74.1 General: [...] refusing). Will need to establish care with box folding machine operator so that further treatment options [...] in MS4 note. Moses [place] MD Neurology Parcel Post Weigher Pager [phone] signed by Moses Asher MD at 03/18/2012 [...] an. ---- Nuñez Nicole, MS4 Pager # [phone] Chary Moore MD - 03/17/2012 8:39 PM [...] refusing). Will need to establish care with box folding machine operator so this can be discussed [...] Doherty MD Chief Resident, Internal Medicine Pager: [phone] [facility] DEPARTMENT: Hosp- [id number] Place of Service: - Date of Service: 03/17/2012 CSN: [id number] Modifiers: Resident Involved: Yes Suggested CPT: 49891 Subsequent Visit Detailed/High complexity 35 min I [...] end of case. MIRELA SALGADO MD [facility] [address] [address] [place] [address] ham, Gloria Lawson MD - [...] ok from vascular, we will restart Mrs. aHrtley's coumadin. She has rec eived funding for lovenox to bridge her until she's therapeutic with her coumadin and [facility] has agreed to provide discounted INR [...] y Gloria [place] MD Neurology PGY1 Pager: [phone] oaquin Rivera - 10/2011 7:19 AM PST [...] an. ---- Joaquin Rivera, MS4 Pager # [phone] Chary Moore MD - 03/16/2012 12:56 PM [...] Doherty MD Chief Resident, Internal Medicine Pager: [phone] [facility] DEPARTMENT: Hosp- [id number] Place of Service: - Date of Service: 03/16/2012 CSN: [id number] Modifiers: Resident Involved: Yes Suggested CPT: 71562 Subsequent Visit Exp Prob Foc/Mod Complexity 25 min and 48861 Subseque nt Visit Detailed/High complexity 35 min [...] DNR/DNI Gloria [place] MD Neurology PGY-1 Pager [phone] The patient was seen and discussed with [...] Doherty MD Chief Resident, Internal Medicine Pager: [phone] [facility] DEPARTMENT: Hosp- [id number] Place of Service: - Date of Service: 03/15/2012 CSN: [id number] Modifiers:GC Resident Involved: Yes Suggested CPT: 57146 Subsequent Visit Detailed/High complexity 35 min Dariela [...] plan. Dariela Santoyo MD Internal Medicine PGY-3 [id number] Daryl Singleton MD - 08/2011 7:18 PM PSTHematology Attending Consult Note: I saw and examined Ms. Hartley with the Hematology Fellow, Dr. [place] Camejo and [facility] [place] the 5A Medicine unit. I participated in the gunter components of today's [facility] pital visit including review of the [...] Hematology Oncology [facility] DEPARTMENT: [id number]- HEM FACULTY [facility] Place of Service: - Inpatient Date of Service: 03/15/2012 Modifiers: GC - Resident Involved Suggested CPT: 78946 - Subsequent, Detailed/High complex 35 min [place] [...] clinic f/u closely; our clinic at [facility] cannot provide any suppli es -anticoagulation [...] as above. MD Hematology/Oncology Fellow Pager # [phone] signed by Daryl Arteaga MD at 03/15/2012 [...] with any questions. Bigg Margaret, R1 Pager: [phone] INTERVAL HISTORY: - NAEO - VSS, AF [...] to pro ceed. Mirela Samano M.D. [facility] Vascular Surgery [address] [facility], [address] [address] Email: [email or web address], Sandoval Barrett MD - 03/15/2012 [...] off to day. Jacoby Tovar MD Surgery [id number] signed by Sandoval Tovar MD at 03/15/2012 [...] monitor Gloria [place] MD Neurology PGY1 Pager [phone] Daryl Singleton MD - 07/2011 4:57 PM PSTHematology Attending Consult Note: I saw and examined Ms. Hartley with the Hematology Fellow, Dr. [place] Camejo in the [address] [place] [address] unit. I participated in the gunter components [...] Hematology Oncology [facility] DEPARTMENT: [id number]- HEM FACULTY [facility] Place of Service: - Inpatient Date of Service: 03/14/2012 Modifiers: GC - Resident Involved Suggested CPT: 97820 - Subsequent, Detailed/High complex 35 min [place] [...] as above. MD Hematology/Oncology Fellow Pager # [phone] signed by Daryl Arteaga MD at 03/14/2012 [...] really for treatment Recommendations communicated with GM3 help desk intern. We will continue to follow. This plan was discussed and formulated with gastroenterology at [facility], Dr. Casiano. Please call with any questions. Bigg Robles, R1 Pager: [phone] Attending Attestation: I personally interviewed the patient, [...] She may follow-up wit h her local box folding machine operator or may follow up with me at [facility] if she wishes to consider di fferent evaluation or treatment. Gopal Casiano MD Crimping Machine Operator For Metalprocessing operator Department of Gastroenterology INTERVAL HISTORY: - [...] Reviewed outside imaging with radiologist at [facility] and CT abd and pelvis shows [...] Becca Moncada MD General Surgery, R2 Pager: [phone] [facility] Staff I saw and evaluated the patient. I agree with the findings and the plan of care as jannie hair in the resident s note. Left foot warm and well perfused. Patient pain-free. Will repe at [facility] to see if there has been any thrombus progression. No urgent need for surgery on left leg at this point. Mirela Samano M.D. [facility] Vascular Surgery [address] [place] [address], [address] [address] Email: [email or web address], Irene Vega MD - 03/14/2012 [...] remained hemodynamically stable. Transferre d to [facility] for possible thrombectomy, initiated heparin therapy, [...] were obscured by overlying bowel gas. The rcp-sy-salwrv left external iliac arteries appear patent with [...] transient arterial occlusion. Reported CT findings at [facility] are also concerning for diffuse intra-abdominal [...] CARLOS A SALCIDO MD R2, General Surgery [facility] 03/13/2012 1:20 PM Current Facility-Administered Medications [...] Recorded LastCBG Intervention: Notified (Comment);Medication given (03/12/12 8817) CBC with diff last 72 hours (or [...] Becca Moncada MD General Surgery, R2 Pager: [phone] Vascular Staff I saw and evaluated the [...] a later time. Mirela Samano M.D. [facility] Vascular Surgery [address] [facility] [place] [address] Email: [email or web address] Richie Goodman MD - 06/2011 11:15 AM PSTI was present and rounded with the [employer] today. I interviewed and examined the patient. I reviewed the history, as documented today. I agree with the SALES EX[employer]IVE [employer]UR[employer]'s assessmen t and plan. Pt is stable [...] visceral and aortic thrombus transfer red from [place] last night with concerns for ischemic bowel. [...] celiac arteries who was transferred to [facility] for management o f vascular disease and possible bowel ischemia. No evidence of bowel ischemia, bowel thicken ing likely Crohn's flare. 1. Crohn's flare: GI consult. Consider transfer to medicine for crohn's management with [facility] following 2. Multivessel occlusions/thrombii: vascular surgery [...] Her abdominal exam does not reveal peritonitis. [facility] ular surgery recommended a heparin drip given her subtherapeutic INR. Hematology will be con sulted for her leukocytosis and declining platelet count in the setting of heparin therapy. Gastroenterology is making recommendations regarding acute management of her Crohn's disease . She will no longer require ICU care and she will transfer to the general medicine service. Jf Wiseman MD FACS computer aide Division of Trauma, Critical Care, and Acute Care Surgery [id number] documented in this e ncounter Plan of [...] [facility] | [address] | [place] [address] | | | JANELL SHARP | BERTRAM [...] [facility] | [address] | [place] [address] | | | SERVICES, CORE | BERTRAM [...] + + + + + | [facility] | [address] [facility] [facility] [address] | [place] [address] | | | JANELL SHARP | BERTRAM [...] LABORATORY | [address] | [place] [address] | | | SERVICES, CORE | PARK [...] | + + + + + | [facility] | [address] | [place] [address] | | | SERVICES, CORE [...] [facility] | [address] | [place] [address] | | | SERVICES, JANELL | BERTRAM [...] [facility] | [address] | [place] [address] | | | JANELL SHARP | BERTRAM [...] LABORATORY | [address] | [place] [address] | | | SERVICES, JANELL | BERTRAM [...] [facility] | [address] | [place] [address] | | | SERVICES, CORE | PARK [...] [facility] | [address] | [place] [address] | | | SERVICES, CORE | BERTRAM [...] [facility] | [address] | [place] [address] | | | SERVICES, CORE | PARK [...] | + + + + + | [facility] | [address] | [place] [address] | | | SERVICES, CORE | BERTRAM [...] | + + + + + | [facility] | [address] | [place] [address] | | | SERVICES, CORE | PARK [...] + | [facility] | [address] | [place] [address] | | | [place] | | | [...] + | [facility] | [address] | [place] [address] | | | [place] | | | [...] + | [facility] | [address] | [place] [address] | | | [place] | | | | + + + [...] + + + + + | [facility] | [address] | [place] [address] | | | SERVICES, CORE | BERTRAM [...] | + + + + + | [facility] | [address] | [place] [address] | | | SERVICES, CORE | BERTRAM [...] + + + + + | [facility] | [address] [facility] [facility] [address] | [place] [address] | | | SERVICES, CORE | BERTRAM [...] | + + + + + | [facility] | [address] | [place] [address] | | | ARON, JANELL | BERTRAM [...] + + + + + | [facility] DEPARTMENT | [address] | [place] [address] | | | PATHOLOGY | [address] [...] [facility] | [address] | [place] [address] | | | SERVICES, CORE | PARK [...] | + + + + + | [facility] | [address] [facility] [facility] | [place] [address] | | | ARON, [facility] | [address] | | | + [...] | [address] | [place], [place] | | | [facility] | [address] | [address] | | | TESTS | | | [...] | + + + + + | [facility] | [address] | [place] [address] | | | SERVICES, CORE | [...] [facility] | [address] | [place] [address] | | | ARON, CORE | BERTRAM [...] | + + + + + | [facility] | [address] | [place] [address] | | | SERVICES, CORE | BERTRAM [...] | 60 - 99 mg/dL | [facility] - | | | GLUCOSE, | [...] | [address] | [place], [place] | | | [facility] | [address] | [address] | | | TESTS | | | [...] | + + + + + | [facility] | [address] | [place] [address] | | | SERVICES, CORE | BERTRAM [...] | + + + + + | [facility] | [address] [facility] [facility] [address] | [place] [address] | | | SERVICES, CORE | BERTRAM [...] [facility] | [address] | [place] [address] | | | SERVICES, CORE | PARK [...] | + + + + + | [facility] | [address] | [place] [address] | | | SERVICES, CORE | [address] | | | + + + + + X-RAY PORTABLE CHEST 1 VIEW (03/28/2012 6:28 AM PST) + + + + + + | Component | Value | Ref Range | Performed | Pathologist | | | | | At | Signature | + + + + + + | X-RAY | STUDY: NE CHEST 1 VIEW | | | | [...] + + + + | PRODUCT | [id number] | | [facility] | | | UNIT [...] + + + + | BLOOD | 21455 | | [facility] | | | PRODUCT [...] [facility] | [address] | [place] [address] | | | PATHOLOGY | [address] [...] + + + + | PRODUCT | [id number] | | [facility] | | | UNIT [...] + + + + | BLOOD | 11718 | | [facility] | | | PRODUCT [...] | + + + + + | [facility] | [address] | [place] [address] | | | PATHOLOGY | [address] [...] | [address] | [place], [place] | | | [facility] | [address] | [address] | | | TESTS | | | [...] | + + + + + | [facility] | [address] [facility] [facility] | [place] [address] | | | JANELL SHARP | BERTRAM [...] view image for the detailed interpretation from [employer] results. | CARDIOLOGY | + + + + + + + + | Performing | Address | City/State/Zipcode | Phone Number | | Organization | | | | + + + + + | [facility] | [address] | [place], [place] | | | CARDIOLOGY | [address] | [address] | | + + + + + [...] [facility] | [address] | [place] [address] | | | SERVICES, CORE | BERTRAM [...] + + + + | PRODUCT | [id number] | | [facility] | | | UNIT [...] + + + + | BLOOD | 78838 | | [facility] | | | PRODUCT [...] | + + + + + | [facility] | [address] | [place] [address] | | | PATHOLOGY | [address] [...] + + + + | PRODUCT | [id number] | | [facility] | | | UNIT [...] + + + + | BLOOD | 50576 | | [facility] | | | PRODUCT [...] + + + + + | [facility] DEPARTMENT | [address] | [place] [address] | | | PATHOLOGY | [address] [...] [facility] | [address] | [place] [address] | | | SERVICES, CORE | PARK [...] LABORATORY | [address] | [place] [address] | | | JANELL SHARP | BERTRAM [...] + + + + + | [facility] | [address] | [place] [address] | | | JANELL SHARP | BERTRAM [...] [facility] | [address] | [place] [address] | | | SERVICES, CORE | PARK [...] [facility] | [address] | [place] [address] | | | SERVICES, | [address] [...] [facility] | [address] | [place] [address] | | | SERVICES, | [address] [...] + + + + | PRODUCT | [id number] | | [facility] | | | UNIT [...] + + + + | BLOOD | 08482 | | [facility] | | | PRODUCT [...] | + + + + + | [facility] | [address] | [place] [address] | | | PATHOLOGY | [address] [...] + + + + | PRODUCT | [id number] | | [facility] | | | UNIT [...] + + + + | BLOOD | 76051 | | [facility] | | | PRODUCT [...] DEPARTMENT OF | [address] | [place] [address] | | | PATHOLOGY | [address] [...] [facility] | [address] | [place] [address] | | | SERVICES, CORE | PARK [...] + + + + + | [facility] | [address] | [place] [address] | | | SERVICES, CORE | PARK [...] | + + + + + | [facility] | [address] | [place] [address] | | | SERVICES, CORE | PARK [...] | + + + + + | [facility] | [address] | [place] [address] | | | SERVICES, CORE | PARK [...] [facility] | [address] | [place] [address] | | | JANELL SHARP | BERTRAM [...] [facility] | [address] | [place] [address] | | | SERVICES, CORE | PARK [...] [facility] | [address] | [place] [address] | | | SERVICES, CORE | PARK [...] [facility] | [address] | [place] [address] | | | SERVICES, CORE | PARK [...] 82 | 60 - 99 mg/dL | [facility] | | | PLASMA | | | [...] [facility] | [address] | [place] [address] | | | JANELL SHARP | BERTRAM [...] [facility] | [address] | [place] [address] | | | SERVICES, CORE | PARK [...] [facility] | [address] | [place] [id number] | | | SERVICES, CORE | BERTRAM [...] [facility] | [address] | [place] [address] | | | SERVICES, CORE | PARK [...] [facility] | [address] | [place] [address] | | | SERVICES, CORE | PARK [...] [facility] | [address] | [place] [address] | | | SERVICES, CORE | PARK [...] | + + + + + | [facility] | [address] | [place] [address] | | | JANELL SHARP | BERTRAM [...] oral, | | | | | | [id number] hrs | | | | | | [...] | + +---------+ + + | [facility] DEPARTMENT OF | | | | [...] [facility] | [address] | [place] [address] | | | SERVICES, CORE | PARK [...] + + + + + | [facility] | [address] | [place] [address] | | | SERVICES, CORE | PARK [...] | + + + + + | [facility] | [address] | [place] [address] | | | SERVICES, CORE | BERTRAM [...] | + + + + + | [facility] | [address] | [place] [address] | | | SERVICES, CORE | BERTRAM [...] [facility] | [address] | [place] [address] | | | SERVICES, CORE | PARK [...] | | | | Final | | [place] | | | | CULTURE RESULT:< 10,000 [...] + | [facility] | [address] | [place] [address] | | | [facility] | | | | + + + [...] [facility] | [address] | [place] [address] | | | SERVICES, CORE | PARK [...] LABORATORY | [address] | [place] [address] | | | SERVICES, JANELL | BERTRAM [...] + + | [facility] | [address] [facility] [facility] [address] | [place] [address] | | | JANELL SHARP | BERTRAM [...] + + + + + | [facility] | [address] | [place] [address] | | | SERVICES, CORE | [address] | | | + + + + + 12 LEAD ECG (03/23/2012 4:00 PM PST) + + + + + + | Component | Value | Ref Range | Performed | Pathologist | | | | | At | Signature | + + + + + + | VENTRICULAR | 103 | BPM | [facility] DEPT | | | RATE | [...] view image for the detailed interpretation from [employer] results. | CARDIOLOGY | + + + + + + + + | Performing | Address | City/State/Zipcode | Phone Number | | Organization | | | | + + + + + | [facility] OF | [address] | [place], [place] | | | CARDIOLOGY | [address] | [address] | | + + + + + [...] [facility] | [address] | [place] [address] | | | SERVICES, CORE | PARK [...] [facility] | [address] | [place] [address] | | | SERVICES, CORE | BERTRAM [...] | + + + + + | [facility] | [address] | [place] [address] | | | SERVICES, CORE | PARK [...] + + + + + | [facility] | [address] | [place] [address] | | | SERVICES, JANELL | BERTRAM [...] | | [facility] | | | | | | [place] [address] | | | | | | [phone] | | | | | | Kaitlin [...] [facility] | [address] | [place], [place] | | | [facility] | | [address] | | + + + + + [...] | + + + + + | [facility] | [address] | [place] [address] | | | SERVICES, JANELL | [address]ERTRAM [...] + CULTURE, BLOOD BACTI & YEAST [facility] (03/22/2012 7:09 PM PST) + + + [...] | + + + + + | [facility] | [address] | [place] [address] | | | SERVICES, CORE | B[address]TRAM [...] + + + + + | [facility] | [address] | [place] [address] | | | SERVICES, CORE | [address] | | | + + + + + 12 LEAD ECG (03/22/2012 2:58 PM PST) + + + + + + | Component | Value | Ref Range | Performed | Pathologist | | | | | At | Signature | + + + + + + | VENTRICULAR | 87 | BPM | [facility] | | | RATE | | [...] | | | | | XIN GARZON (6386) | | | | | | on 03/22/2012 4:25:06 PM | | | | + + + + + + + + | Specimen | + + | | + + + + + | Narrative | Performed At | + + + | Please click | [facility] | | on view image for the detailed interpretation from [employer] results. | CARDIOLOGY | + + + + + + + + | Performing | Address | City/State/Zipcode | Phone Number | | Organization | | | | + + + + + | [facility] | [address] | [place], [place] | | | CARDIOLOGY | [address] | [address] | | + + + + + [...] [facility] | [address] | [place], [place] | | | [facility] | [facility] | [address] | | | TESTS | | | [...] [facility] | [address] | [place], [place] | | | [facility] | [facility] | [address] | | | TESTS | | | [...] + + + + + | [facility] | [address] | [place] [address] | | | SERVICES, CORE | PARK [...] [facility] | [address] | [place] [address] | | | SERVICES, CORE | PARK [...] + + | [facility] | [address] [facility] [facility] [address] | [place] [address] | | | SERVICES, CORE | P[address] [...] [facility] | [address] | [place] [address] | | | SERVICES, CORE | [address] [...] + + + + + | [facility] | [address] | [place] [address] | | | SERVICES, CORE | [address] [...] | 60 - 99 mg/dL | [facility] - | | | GLUCOSE, | [...] | [address] | [place], [place] | | | [facility] | [address] | [address] | | | TESTS | | | [...] | + + + + + | [facility] | [address] | [place] [address] | | | ARON, JANELL | BERTRAM [...] | 60 - 99 mg/dL | [facility] - | | | GLUCOSE, | [...] | [address] | [place], [place] | | | [facility] | [address] | [address] | | | TESTS | | | [...] view image for the detailed interpretation from [employer] results. | CARDIOLOGY | + + + + + + + + | Performing | Address | City/State/Zipcode | Phone Number | | Organization | | | | + + + + + | [facility] | [address] | [place], [place] | | | CARDIOLOGY | [address] | [address] | | + + + + + [...] [facility] | [address] | [place], [place] | | | [facility] | [address] | [address] | | | TESTS | | | | + + + + + VASC LAB ANKLE BRACH INDICS W WAVEFORM BILAT (03/21/2012 8:17 AM PST) + + + + + + | Component | Value | Ref Range | Performed | Pathologist | | | | | At | Signature | + + + + + + | [facility] | ANKLE BRACHIAL INDEX | [...] | | | | signed / Amalia nUger | Adam | | | | Jorge [...] + + + + + | [facility] | [address] | [place] [address] | | | SERVICES, CORE | PARK [...] | + + + + + | [employer] | [address] | [place] [address] | | | SERVICES, CORE | [address] [...] | + + + + + | [facility] | [address] | [place] [address] | | | SERVICES, CORE | PARK [...] + + + + + | [facility] [employer] | [address] | [place] [address] | | | SERVICES, CORE | [address]TR[address] [...] [facility] | [address] | [place] [id number] | | | JANELL SHARP | BERTRAM [...] GARCIA | | | | | | (1324) on 03/22/2012 | | | | | | 12:47:28 PM | | | | + + + + + + + + | Specimen | + + | | + + + + + | Narrative | Performed At | + + + | Please click | [facility] | | on view image for the detailed interpretation from [employer] results. | CARDIOLOGY | + + + + + + + + | Performing | Address | City/State/Zipcode | Phone Number | | Organization | | | | + + + + + | [facility] | [address] | [place], [place] | | | CARDIOLOGY | [address] | [address] | | + + + + + [...] | + + + + + | [facility] | [address] | [place] [address] | | | SERVICES, CORE | BERTRAM [...] LABORATORY | [address] | [place] [address] | | | JANELL SHARP | BERTRAM [...] | 60 - 99 mg/dL | [facility] - | | | GLUCOSE, | [...] | [address] | [place], [place] | | | [facility] | [address] | [address] | | | TESTS | | | [...] view image for the detailed interpretation from [employer] results. | CARDIOLOGY | + + + + + + + + | Performing | Address | City/State/Zipcode | Phone Number | | Organization | | | | + + + + + | [facility] | [address] | [place], [place] | | | CARDIOLOGY | [address] | [address] | | + + + + + [...] | [address] | [place], [place] | | | [facility] | [facility] | [address] | | | TESTS | | | [...] | [address] | [place] | | | [facility] | [address] | [address] | | | TESTS | | | | + + + + + X-RAY PORTABLE CHEST 1 VIEW (03/20/2012 10:13 AM PST) + + + + + + | Component | Value | Ref Range | Performed | Pathologist | | | | | At | Signature | + + + + + + | X-RAY | STUDY: NE CHEST 1 VIEW | | | | [...] [facility] | [address] | [place] [address] | | | SERVICES, JANELL | [address]ERTRAM [...] | + + + + + | [facility] | [address] [facility] [address] | [place] [address] | | | ARON, JANELL | [address] [...] + + + + + | [facility] | [address] | [place] [address] | | | JANELL SHARP | BERTRAM [...] + + + + + | [facility] | [address] | [place] [address] | | | SERVICES, CORE | [address]TR[address] [...] | 60 - 99 mg/dL | [facility] - | | | GLUCOSE, | [...] | [address] | [place], [place] | | | [facility] | [address] | [address] | | | TESTS | | | [...] | [address] | [place] | | | [facility] | [address] | [address] | | | TESTS | | | [...] + + + + + | [facility] | [address] | [place] [address] | | | SERVICES, CORE | [address]ARK [...] + + + + + | [facility] | [address] | [place] [address] | | | JANELL SHARP | BERTRAM [...] | [address] | [place], [place] | | | [facility] | [address] | [address] | | | TESTS | | | [...] view image for the detailed interpretation from [employer] results. | CARDIOLOGY | + + + + + + + + | Performing | Address | City/State/Zipcode | Phone Number | | Organization | | | | + + + + + | [facility] | [address] | [place], [place] | | | CARDIOLOGY | [address] | [address] | | + + + + + [...] | [address] | [place] | | | [facility] | [address] | [address] | | | TESTS | | | [...] - [facility] | [address] | [place] | | | [facility] | [address] | [address] | | | TESTS | | | [...] [facility] | [address] | [place] [address] | | | SERVICES, CORE | BERTRAM [...] [facility] | [address] | [place] [address] | | | SERVICES, CORE | [address] [...] (H) | 4.4 - 11.0 K/cu | [facility] | | | COUNT | | mm [...] [facility] | [address] | [place] [address] | | | SERVICES, CORE | [address] [...] | + + + + + | [facility] | [address] [facility] [facility] [facility] [address] | [place] [address] | | | SERVICES, JANELL | [address] [...] | | | | Final | | [place] | | | | CULTURE RESULT:No growth [...] + | [facility] - | [address] | [place] [address] | | | [place] | | | | + + + [...] | + + + + + | [facility] | [address] | [place] [address] | | | SERVICES, CORE | BERTRAM [...] [facility] | [address] | [place] [address] | | | SERVICES, CORE | PARK [...] [facility] | [address] | [place] [address] | | | JANELL SHARP | BERTRAM [...] [facility] | [address] | [place] [address] | | | SERVICES, CORE | PARK [...] + | [facility] | [address] | [place] [address] | | | SERVICES, CORE | PARK [...] - [facility] | [address] | [place], [place] | | | [facility] | [address] | [address] | | | TESTS | | | [...] + + + + + | [facility] | [address] | [place] [address] | | | SERVICES, CORE | BERTRAM [...] [facility] | [address] | [place], [place] | | | [facility] | [address] | [address] | | | TESTS | | | [...] LABOR[facility]ORY | [address] | [place] [address] | | | SERVICESJANELL | [address] [...] + + + + + | [facility] | [address] | [place] [address] | | | SERVICES, CORE | BERTRAM [...] | [address] | [place], [place] | | | [facility] | [address] | [address] | | | TESTS | | | | + + + + + OPERATION RECORD (03/18/2012 11:22 AM PST) + + | Transcriptions | + + | Mirela Salgado MD - 03/18/2012 8:38 AM PST Date: 03/17/2012ttending | | Surgeon: Mirela Salgado M.D.Aviation Neuropsychologist(s): Sandoval | | Bennett Galvez M.D.Preoperative Diagnosis(es):Embolus, [...] | | tolerated the procedure well.MIRELA SALGADO, [facility] / [id number] / | | [id number] / [id number] / T: 03/17/2012 | |was no pulse. [...] | | | |MIRELA SALGADO MD | |deflector operator | | | |[facility] / | |[id number] / [id number] / [id number] / | | | | | + + HEPARIN, EITHER STANDARD / LMW, BLOOD (03/18/2012 10:26 AM [facility]) + +-------+ + + + | Component [...] | + + + + + | [facility] | [address] | [place] [address] | | | ARON, CORE | BERTRAM [...] [facility] | [address] | [place] [address] | | | SERVICES, JANELL | BERTRAM [...] + | [facility] | [address] | [place] [address] | | | SERVICES, CORE [...] [facility] | [address] | [place] [address] | | | SERVICES, CORE | PARK [...] [facility] | [address] | [place] [address] | | | SERVICES, CORE | PARK [...] LABORATORY | [address] | [place] [address] | | | SERVICES, CORE | PARK [...] + + + + + | [facility] | [address] | [place] [address] | | | SERVICES, CORE | BERTRAM [...] | [address] | [place], [place] | | | [facility] | [address] | [address] | | | TESTS | | | [...] | [address] | [place], [place] | | | [facility] | [address] | [address] | | | TESTS | | | [...] (H) | 60 - 99 mg/dL | [facility] - | | | GLUCOSE, | | [...] | [address] | [place], [place] | | | [facility] | [address] | [address] | | | TESTS | | | [...] [facility] | [address] | [place] [address] | | | SERVICES, JANELL | BERTRAM [...] | + + + + + | [facility] | [address] | [place] [address] | | | SERVICES, CORE | PARK [...] + + + + + | [facility] | [address] [address] | [place] [address] | | | SERVICES, CORE | BERTRAM [...] LABORATORY | [address] | [place] [address] | | | ARON, JANELL | PARK [...] | 60 - 99 mg/dL | [facility] - | | | GLUCOSE, | [...] - MARILYN | [address] | [place], [place] | | | [facility] | [address] | [address] | | | TESTS | | | [...] [facility] | [address] | [place] [address] | | | SERVICES, | [address] [...] [facility] | [address] | [place] [address] | | | SERVICES, | [address] [...] + + + + + | [facility] | [address] | [place] [address] | | | JANELL SHARP | BERTRAM [...] | 60 - 99 mg/dL | [facility] - | | | GLUCOSE, | [...] + + + | [facility] | [address] | [place], [place] | | | [facility] | [address] | [address] | | | TESTS | | | [...] | + +---------+ + + | [facility] DEPARTMENT OF | | | | [...] MARILYN | [address] | [place], [place] | | | [facility] | [facility] | [address] | | | TESTS | | | [...] | 60 - 99 mg/dL | [facility] - | | | GLUCOSE, | [...] DAVIDAM | [address] | [place], [place] | | | [facility] | [address] | [address] | | | TESTS | | | [...] | + + + + + | [facility] | [address] | [place] [address] | | | SERVICES, CORE | BERTRAM [...] + + | [facility] | [address] | [place], [place] | | | [facility] | [address] | [address] | | | TESTS | | | [...] + + + + + | [facility] | [address] [facility] | [place] [address] | | | SERVICES, CORE | PARK [...] [facility] | [address] | [place] [address] | | | SERVICES, CORE | PARK [...] [facility] | [address] | [place] [address] | | | SERVICESJANELL | [address] [...] + + + + + | [facility] | [address] | [place] [address] | | | SERVICES, CORE | BERTRAM [...] | [address] | [place], [place] | | | [facility] | [address] | [address] | | | TESTS | | | [...] MARILYN | [address] | [place], [place] | | | [facility] | [address] | [address] | | | TESTS | | | [...] | + +---------+ + + | [facility] DEPARTMENT OF | | | | [...] Kirstie | | | | | | [place] | | | | + + + + + + + + | Specimen | + + | | + + + +---------+ + + | Performing | Address | City/State/Zipcode | Phone Number | | Organization | | | | + +---------+ + + | [facility] DEPARTMENT OF | | | | [...] | [address] | [place], [place] | | | [facility] | [address] | [address] | | | TESTS | | | [...] DAVIDAM | [address] | [place], [place] | | | [facility] | [address] | [address] | | | TESTS | | | [...] | + + + + + | [facility] | [address] | [place] [address] | | | SERVICES, SPECIAL | PARK [...] + + | [facility] | [address] [facility] | [place] [address] | | | SERVICES, SPECIAL | BERTRAM [...] [facility] | [address] | [place] [address] | | | SERVICES, SPECIAL | PARK [...] [facility] | [address] | [place] [address] | | | SERVICES, SPECIAL | PARK [...] + + | [facility] | [address] [facility] | [place] [address] | | | ARON, JANELL | BERTRAM [...] | + + + + + | [facility] | [address] | [place] [address] | | | SERVICES, CORE | BERTRAM [...] LABORATORY | [address] | [place] [address] | | | SERVICES, CORE | PARK [...] | + + + + + | [facility] | [address] [facility] | [place] [address] | | | ARON, JANELL | BERTRAM [...] | [address] | [place] | | | [facility] | [address] | [address] | | | TESTS | | | [...] + + + + + | [facility] | [address] | [place] [address] | | | SERVICES, CORE | BERTRAM [...] | [address] | [place], [place] | | | [facility] | [facility] | [address] | | | TESTS | | | [...] | [address] | [place], [place] | | | [facility] | [address] | [address] | | | TESTS | | | [...] Davina | | | | | | [place] | | | | + + + [...] | [address] | [place], [place] | | | [facility] | [address] | [address] | | | TESTS | | | [...] + + + + | PRODUCT | [id number] | | [facility] | | | UNIT [...] + + + + | BLOOD | 27655 | | [facility] | | | PRODUCT [...] | + + + + + | [facility] | [address] | [place] [address] | | | PATHOLOGY | [address] [...] + + + + | PRODUCT | [id number] | | [facility] | | | UNIT [...] + + + + | BLOOD | 99088 | | [facility] | | | PRODUCT [...] DEPARTMENT OF | [address] | [place] [address] | | | PATHOLOGY | [address] [...] [facility] | [address] | [place] [address] | | | SERVICES, CORE | PARK [...] - MARGOPIAM | [address] | [place], [place] | | | [facility] | [address] | [address] | | | TESTS | | | [...] | [address] | [place], [place] | | | [facility] | [address] | [address] | | | TESTS | | | [...] [facility] | [address] | [place] [address] | | | SERVICES, CORE | BERTRAM [...] [facility] | [address] | [place] [address] | | | SERVICES, CORE [...] | + + + + + | [facility] | [address] | [place] [address] | | | SERVICES, CORE | BERTRAM [...] | | If supplementation does | | [facility] | | | | not correct consider [...] if | | | | | | [id number] >400: | | | | | | [...] + | [facility] | [address] | [place] [address] | | | [place] | | | [...] [facility] | [address] | [place] [address] | | | SERVICES, CORE | PARK [...] LABORATORY | [address] | [place] [address] | | | SERVICES, CORE | PARK [...] | + + + + + | [facility] | [address] | [place] [address] | | | SERVICES, CORE | BERTRAM [...] - | | | | | | [place] | | + + + + + + + + | Specimen | + + | Blood - Blood | + + + + + + + | Performing | Address | City/State/Zipcode | Phone Number | | Organization | | | | + + + + + | [facility] | [address] | [place] [address] | | | [place] | | | | + + + [...] | [address] | [place], [place] | | | [facility] | [address] | [address] | | | TESTS | | | [...] [facility] | [address] | [place] [address] | | | SERVICES, CORE | PARK [...] + + + | [facility] | [address] | [place] [address] | | | SERVICES, CORE | BERTRAM [...] - DAVIDAM | [address] | [place] | | | [facility] | [address] | [address] | | | TESTS | | | [...] | + + + + + | [facility] | [address] | [place] [address] | | | SERVICES, CORE | BERTRAM [...] gas. | | | | | | [id number] left | | | | | | [...] | [address] | [place], [place] | | | [facility] | [address] | [address] | | | TESTS | | | [...] % | [facility] | | | | [facility],[address] | | [facility] UN[facility] | | | | [employer]ana [employer], [facility],[place] | | PTH - [facility] | | | | [id number] | | | | | | [phone]. | | | | | | Kaitlin [...] [facility] | [address] | [place], [place] | | | UNIV PTH - [facility] | | [address] | | + + + + + [...] | + + + + + | [facility] | [address] [facility] [facility] | [place] [address] | | | SERVICES, CORE | BERTRAM [...] | + + + + + | [facility] | [address] | [place] [address] | | | SERVICES, CORE | BERTRAM [...] | [address] | [place] | | | [facility] | [address] | [address] | | | TESTS | | | [...] + + + + + | [facility] | [address] | [place] [address] | | | ARON, CORE | PARK [...] + + + + + | [facility] | [address] | [place] [address] | | | SERVICES, CORE | BERTRAM [...] | 60 - 99 mg/dL | [facility] - | | | GLUCOSE, | [...] SANDERS | [address] | [place] | | | [facility] | [address] | [address] | | | TESTS | | | [...] | + + + + + | [facility] | [address] | [place] [address] | | | SERVICES, CORE | PARK [...] | + + + + + | [facility] | [address] | [place] [address] | | | SERVICES, CORE | BERTRAM [...] | + + + + + | [facility] | [address] | [place] [address] | | | SERVICES, CORE | BERTRAM [...] + + + + + | [facility] | [address] | [place] [address] | | | SERVICES, CORE | PARK [...] [facility] | [address] | [place] [address] | | | SERVICES, CORE | PARK [...] | + + + + + | [facility] | [address] | [place] [address] | | | SERVICES, CORE [...] + | [facility] | [address] | [place] [address] | | | [place] | | | [...] | | | Final CULTURE | | [place] | | | | RESULT:Salmonella, | | [...] + | [facility] | [address] | [place] [address] | | | [place] | | | [...] + + + + + | [facility] | [address] | [place] [address] | | | SERVICES, CORE | BERTRAM [...] | 60 - 99 mg/dL | [facility] - | | | GLUCOSE, | [...] | [address] | [place], [place] | | | [facility] | [address] | [address] | | | TESTS | | | [...] [facility] | [address] | [place], [place] | | | CARDIOLOGY | [address] | [address] | | + + + + + [...] [facility] | [address] | [place] [address] | | | SERVICES, CORE | [address] | | | + + + + + CULTURE, BLOOD BACTI & YEAST [facility] (03/12/2012 9:50 PM PST) + + + [...] | + + + + + | [facility] | [address] | [place] [address] | | | SERVICES, CORE | BERTRAM [...] [facility] | [address] | [place] [address] | | | SERVICES, CORE | PARK [...] + + + + + | [facility] | [address] [facility] [facility] | [place] [address] | | | SERVICES, CORE | PARK [...] MARILYN | [address] | [place] | | | [facility] | [facility] | [address] | | | TESTS | | | [...] LABORATORY | [address] | [place] [address] | | | SERVICES, CORE | PARK [...] [facility] | [address] | [place] [address] | | | SERVICES, CORE [...] [facility] | [address] | [place] [address] | | | SERVICES, | [address] [...] | + + + + + | [facility] | [address] [facility] [facility] | [place] [address] | | | SERVICES, | [address] [...] | + + + + + | [facility] | [address] | [place] [address] | | | SERVICES, CORE | BERTRAM [...] [facility] | [address] | [place] [address] | | | JANELL SHARP | PARK [...] | + + + + + | [facility] | [address] | [place] [address] | | | JANELL SHARP | [address] [...]
--- OUTSIDE RECORDS SUMMARY | ~2019-03-09 | XMS | Encounter Summary ---
Demographics + + + | Address | [address] | | | [place] [address] | + + + | Home Phone [...] [place], [place] | | | | | [address] | | + + + + + | Cami Sawyer | ECON | Unknown | | + + + + + Care Team Providers + +------+ + | Care Face Man Name | Role | Phone | [...] | | OPAL Howard Romeo Kristen | [address] [facility] | evacuation of | | | | Rd [facility] | [facility] [address] | hematoma, control of | | | | Hospital Admitting | [place], [place] | retroperitonieal | | | | Desk Located on the | [id number] | hemorage, lysis of | | | | 9th floor | [phone] | adhesions, wound vac | | | | [place], [place] | | placement, and | | | | [address] | | abdominal wall | | | [...] might be different f rom the original. [facility] DEPARTMENT OF SURGERY EMERGENCY GENERAL SURGERY [...] and is [facility] to [facility] for critical access hospital care. Mackenzie [...] might be different f rom the original. [facility] DEPARTMENT OF SURGERY [...] to [facility] from [facility] for hanh [...] diet Discharge Plan: [place] [id number] pager number [facility] A [address] [facility] [address] Jean-Claude Chaidez DM D, MD - 05/12/2014 [...] to [facility] from [facility] for management [...] to [facility] from [facility] for management [...] [facility] [address] [place] [phone] This assessment and plan was formulated both [...] to [facility] from [facility] for management [...] to [facility] from [facility] for management [...] [facility] [address] [place] [address] This assessment and plan was formulated both [...] being active. Pt's has been at the [facility] supporting her. Pt is not denominational but appreciates support. Intervention: Provided a listening presence and explored pt's anxieties, worries and hopes. Plan: Spiritual care remains available. Yvette Jolly, [facility] / [facility] phone # [phone] pager # [phone] on-call # [phone] signed by Lulu Diaz at 05/10/2014 12:58 [...] to [facility] from [facility] for management [...] to [facility] from [facility] for management [...] recommending JJ since would be close to [facility] and she would benefit for marcela [...] [facility] [address] [place] [address] This assessment and plan was [...] note might be different from the [facility]. [facility] Department of [...] to [facility] from [facility] for management [...] to [facility] from [facility] for management [...] [facility] [address] [place] [address] This assessment and plan was [...] note might be different from the orig [facility]. [facility] Department [...] to [facility] from [facility] for management [...] to [facility] from [facility] for management [...] [facility] and she would benefit for marcela [...] [facility] [address] [place] [address] This assessment and plan was formulated both [...] this note might be different from the [facility] Department of Surgery Progress Note [...] to [facility] from [facility] for management [...] [facility] from [facility] for management [...] [facility] [address] [place] [address] This assessment and plan was [...] this note might be different from the [facility] Department of Surgery Progress Note [...] to [facility] from [facility] for management [...] to [facility] from [facility] for management [...] continued DHT,TF - Diet: NPO - per ENGINE REPAIR SUPERVISOR, high risk of aspiration - continue ice [...] [address] [place] [address] This assessment and plan was [...] note might be different from the orig [facility]. [facility] Department [...] to [facility] from [facility] for management [...] to [facility] from [facility] for management [...] [address] [place] [address] This assessment and plan was formulated both [...] [facility] [address] [place] [address] Rosa Sauer MD - 05/04/2014 8:26 AM [...] referring hospital. She was transferred to [facility] f or active hemorrhage and [...] rounds. 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 She has required repeated transfers to ICU for respiratory status. She has been diuresed ap propriately while in the ICU and O2 needs have decreased significantly. Will transfer to [facility] or, but need to keep a close [...] Hannah MD General Surgery Resident, R3 Pager [phone] [facility] [address] [place] [address] Jf Jones MD - 05/03/2014 9:38 AM [...] - TF at goal, + BM Dysphagia: ENGINE REPAIR SUPERVISOR following- remains NPO Anasarca: compression socks,. Goal [...] Call team 01/11 for questions: Team Pager [phone] ATTENDING ADDENDUM: I saw and examined Mackenzie [...] Erin Christensen PA-C. 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 Elda Glez MD Pager [phone] Plastic Surgery R2 [facility] Diagnoses: 555.2 [...] holding Q6W Remicade- will consult hematology in [facility] week regarding of timing of resuming remicade Severe malnutrition: - TF at goal, + BM, Dysphagia: ENGINE REPAIR SUPERVISOR following- remains NPO Anasarca: compression socks,. Goal [...] S:none T:lovenox; warfarin bridge H:HOB elevated U:H2 jrarod G:SSI- no insulin needs B:held for liquid stool I:PICC for labs and meds. Wolf for wound management D:no ABX Spines:NA Goals of care: Intubate if needed. DNR. Dispo:remain in ICU, expect moore tx in next [address] Wiseman on TSICU rounds. Marge harris PA-C Dept of Surgery SICU/TICU Contact First Call team 01/11 for questions: Team Pager [phone] ATTENDING ADDENDUM: I saw and examined Mackenzie [...] Marge Harris PA-C. 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 Overall, she is improving. However, remains tachycardic with leukocytosis - WBC [address] 05/01 showed - moderate ascites and pleural effusions and hematoma. Neuro: dilaudid IV PRN Speech: following continue daily to eval swallow CV: HD stable L CRIMINALIST PSA resolved Continue IV lasix today 20 [...] acute care hospitalization Jean-Claude Albrecht D.M.D., M.D. [facility] [place] [address] [place] [address] Jf Jones MD - 04/30/2014 11:08 AM [...] referring hospital. She was transferred to [facility] fo r active hemorrhage and [...] malnutrition: - pulled DHT- refusing replacement. Await ENGINE REPAIR SUPERVISOR eval if passes swallow will give chance to prove adequate po intake. Expect will require TFs again Dysphagia: await ENGINE REPAIR SUPERVISOR eval today. Cont meds and feed via [...] Call team 01/11 for questions: Team Pager [phone] ATTENDING ADDENDUM: I saw and examined Mackenzie [...] Marge Harris PA-C. 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 Overall, she is improving. However, remains tachycardic with leukocytosis -- difficult to t ease out if this is secondary to asplenia. Will obtain CT abd pelvis today to clarify. Neuro: dilaudid IV PRN and intermittent versed for sedation CV: HD stable L CRIMINALIST PSA resolved Pulm: titrate to O2 >92% [...] Hannah MD General Surgery Resident, R3 Pager [phone] [facility] [address] [place] [address] Aravind Morales MD - 04/29/2014 11:43 AM PSTICU Attending: I saw and examined Mackenzie Hartley ([id number]) with Erin Christensen PA-C on 04/29/14 and [...] documented by valentin HASTINGS. Aravind Massey MD Spooling Machine Operator Trauma, Critical Care & Acute Care Surgery Gayatri Owusu P A-C - 04/29/2014 11:43 AM PST Trauma / Surgical Critical Care Service - Progress Note Name: MACKENZIE HRATLEY Date: 04/29/2014 Time: 11:43 AM Author: GAYATRI CHRISTENSEN PA-C HPI: 58 y.o. female admitted on 04/23/2014 10:39 AM with Crohn's, COPD, chronic pain, recurr ent UTIs, and known splenic artery thrombosis s/p retroperitoneal hemorrhage on therapeutic heparin infusion. Surgical exploration at referring hospital. She was transferred to [facility] fo r active hemorrhage. Hospital [...] resolving cont current H2O via DHT Dysphagia: ENGINE REPAIR SUPERVISOR consulted, ice chips only. Cont meds and [...] Call team 01/11 for questions: Team Pager [phone] Chelly Blum MD,M PH - 04/28/2014 3:03 [...] referring hospital. She was transferred to [facility] fo r active hemorrhage. Hospital [...] Hyernatremia: resolving, reduce H2O to 30ml/hr Dysphagia: ENGINE REPAIR SUPERVISOR consulted, ice chips only. 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 She is s/p ex lap, splenectomy, and packing with lap pads at OSH and from reopening of laparotomy, evacua tion of 2-3 L of intraabdominal hematoma, closure of open abdomen SUBJECTIVE: Extubated, neurologically doing much better. 3 L NC Underwent successful thrombin injection of L CRIMINALIST pseudoaneurysm by IR 04/26 MEDICATIONS: Current facility-administered [...] to [facility] from [facility] for management of retroperitoneal bleed. Neuro: dilaudid IV PRN and intermittent versed for sedation CV: HD stable Per vascular: arterial duplex of L CRIMINALIST to assess for stability of PSA shows [...] Hannah MD General Surgery Resident, R3 Pager [phone] [facility] [address] [address] Xin Irizarry M D - 04/27/2014 11:55 [...] imaging and laboratory study results EPIC DEPARTMENT: [id number] - HEM FACULTY [facility] Place of Service: - Inpatient Date of Service: 04-27-2014 Modifiers: GC - Resident Involved Suggested CPT: 71292 - Initial, Comp; Mod complex 50 min XIN AGEE MD [facility] [address] [place] [address] wRudy powers Do - 04/27/2014 11:55 AM PST Hematology Consult Progress Note Primary Service: EGS Primary Attending: Jf Wiseman MD Hospital Length of Stay: 4 Interval Events: - extubated - thrombin injection to CRIMINALIST pseudoaneurysm - heparin gtt started last night [...] [facility] Internal Medicine PGY3 Pager [phone] Mirela Josue MD - 04/27/2014 10:49 AM [...] underwent successful thrombin injection of the left CRIMINALIST pseudoaneurysm by IR last night. Heparin restarted [...] ultraso und guided thrombin injection of left CRIMINALIST pseudoanuerysm. Will order arterial duplex of left CRIMINALIST to assess for stability of pseudoaneurysm Monitor [...] - hemorrhage vs HCAP LUCY MARKS MD [facility] [address] [place] [address] This assessment and plan was formulated both independently and in conjunction with the [facility] ular Surgery Team as well as the attending provider of record above regarding management of this patient and their medical issues. It is accurate to the best of my knowledge, and is s ubject to modification based on clinical developments, new data, or final imaging results. [facility] staff I saw and evaluated the patient. I agree with the findings and the plan of care as jannie hair in the resident s note. Left femoral pseudoaneurysm appears resolved. Stable from [facility] hospital standpoint. No further imaging required unless clinical status changes. Mirela Thompson M.D. [facility] Vascular Surgery [address] [facility] [place] [address] Email: [email or web address] Jf Jones MD - 04/27/2014 8:03 AM [...] referring hospital. She was transferred to [facility] fo r active hemorrhage. Hospital [...] H2O Hyernatremia: water 100ml/hr via DHT Dysphagia: ENGINE REPAIR SUPERVISOR consulted, ice chips only JULIANE: ATN from [...] Call team 01/11 for questions: Team Pager [phone] ATTENDING ADDENDUM: I saw and examined Mackenzie [...] Erin Christensen PA-C. 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 Elda Glez MD Pager [phone] Plastic Surgery R2 [facility] Diagnoses: 555.2 [...] Attending:Dr. Lenny Calhoun MD (Fellow)/pager: Dr. Vang [phone] Medications Procedure Meds: Dilaudid IV 0.5mg Midazolam [...] referring hospital. She was transferred to [facility] fo r active hemorrhage. 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 while anticoagulated with warfarin transferre d to [facility] from [facility] for management [...] to [facility] from [facility] for management [...] Hannah MD General Surgery Resident, R3 Pager [phone] [facility] & [address] [place] [address] Nithya Andres MD - 04/25/2014 6:40 AM PSTTSICU Attending 04/25/14 58 yo woman critically ill with complex surgical and medical history, transferred to [facility] w ith intraabdominal and retroperitoneal hemorrhage [...] Call team 01/11 for questions: Team Pager [phone] Angeles Acevedo MD - 04/25/2014 4:39 AM PST [facility] DEPARTMENT OF SURGERY EGS ICU Progress Note Division of Trauma and Critical Care ID: Mackenzie Hartley is a 58 year old female with COPD, Crohn's disease, chronic pain, and 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 while anticoagulated with warfarin transferre d to [facility] from [facility] for management [...] to [facility] from [facility] for management [...] Hannah MD General Surgery Resident, R3 Pager [phone] [facility] [place] [phone] [facility] [address] ich Redding MD - 04/24/2014 9:21 AM [...] extubate Initial surgical contact: Miladis at pager [phone] Nithya Andres MD - 04/24/2014 5:25 AM [...] Call team 01/11 for questions: Team Pager [phone] Angeles Acevedo MD - 04/24/2014 2:04 AM PST [facility] DEPARTMENT OF SURGERY EGS Consult Progress Note Division of Trauma and Critical Care ID: Mackenzie Hartley is a 58 year old female with COPD, Crohn's disease, chronic pain, and 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 while anticoagulated with warfarin transferre d to [facility] from [facility] for management [...] to [facility] from [facility] for management [...] Hannah MD General Surgery Resident, R3 Pager [phone] [facility] [place] [address] [place] [address] Rudy Parker M D - 04/23/2014 5:07 PM PSTBRIEF INTERVENTIONAL RADIOLOGY PROCEDURE NOTE DATE: 04/23/2014 5:07 PM PROCEDURE: Pelvic angiography with glue embolization PRE-PROCEDURE DIAGNOSIS: Retroperitoneal hematoma POST-PROCEDURE DIAGNOSIS: Same IR STAFF: Lenny IR FELLOW: Ciera ACCESS: L CRIMINALIST MEDICATIONS: Fentanyl IV 150 mcg Midazolam IV [...] HOSPITAL LABORATORY | [address] | [place] [address] | | | SERVICESJANELL | [address] [...] MARILYN | [address] | [place], [place] | | | [facility] | [facility] | [address] | | | TESTS | | | [...] [facility] | [address] | [place] [address] | | | SERVICES, CORE | PARK [...] [facility] | [address] | [place] [address] | | | SERVICES, CORE | KRISTEN [...] | | | LABORATORY | | | [facility] | | | SERVICES, | | | [...] + + + + + | [facility] | [address] | [place] [address] | | | SERVICES, CORE | KRISTEN [...] [facility] | [address] | [place], [place] | | | [facility] PO[facility] OF CARE | [address] | [address] | | | TESTS | | | [...] - [facility] | [address] | [place], [place] | | | [facility] CARE | [address] | [address] | | | TESTS | | | [...] [facility] | [address] | [place] [address] | | | SERVICES, CORE | [address] | | | + + + + + MAGNESIUM, PLASMA (05/12/2014 1:07 AM PST) + +---------+ + + + | Component | Value | Ref Range | Performed | Pathologist | | | | | At | Signature | + +---------+ + + + | MAGNESIUM,P | 1.5 (L) | 1.8 - 2.5 mg/dL | [facility] | | | JFMA | | [...] HOSPITAL LAB[facility]ORY | [address] | [place] [address] | | | SERVICES, CORE | PARK [...] | | | LABORATORY | | | [facility] | | | SERVICES, | | | [...] HOSPITAL LAB[facility]ORY | [address] | [place] [address] | | | JANELL SHARP | [address]STEN [...] HOSPITAL LABOR[facility]ORY | [address] | [place] [address] | | | SERVICES, JANELL | KRISTEN [...] MARILYN | [address] | [place], [place] | | | [place] [place] [facility] [place] | [facility] | [address] | | | TESTS | | | [...] SANDERS | [address] | [place], [place] | | | [facility] PO[facility] OF CARE | [address] | [address] | | | TESTS | | | [...] HOSPITAL LAB[facility]ORY | [address] | [place] [address] | | | SERVICES, CORE | PARK [...] + + + + + | [facility] | [address] | [place] [address] | | | SERVICES, CORE | KRISTEN [...] | | | LABORATORY | | | [facility] | | | SERVICES, | | | [...] [facility] | [address] [facility] [facility] [address] | [place] [address] | | | SERVICES, CORE | PARK [...] [facility] | [address] | [place] [address] | | | SERVICESJANELL | [address] [...] - [facility] | [address] | [place], [place] | | | [facility] POINT OF CARE | [address] | [address] | | | TESTS | | | [...] SANDERS | [address] | [place], [place] | | | [place] [facility] [place] | [address] | [address] | | | TESTS | | | [...] [facility] | [address] | [place], [place] | | | OSCAR POINT OF CARE | [address] | [address] | | | TESTS | | | [...] - DAVIDAM | [address] | [place], [place] | | | OSCAR POINT OF CARE | [address] | [address] | | | TESTS | | | [...] [facility] | [address] | [place] [address] | | | SERVICES, CORE | [address] | | | + + + + + MAGNESIUM, PLASMA (05/10/2014 3:39 AM PST) + +---------+ + + + | Component | Value | Ref Range | Performed | Pathologist | | | | | At | Signature | + +---------+ + + + | MAGNESIUM,P | 1.4 (L) | 1.8 - 2.5 mg/dL | [facility] | | | LASMA | | [...] [facility] | [address] | [place] [address] | | | SERVICES, CORE | PARK [...] | | | LABORATORY | | | [facility] | | | SERVICES, | | | [...] [facility]OS[facility]ITAL [facility] | [address] | [place] [address] | | | JANELL SHARP | KRISTEN [...] HOSPITAL [facility] | [address] | [place] [address] | | | SERVICES, JANELL | KRISTEN [...] MARILYN | [address] | [place], [place] | | | [facility] | [facility] | [address] | | | TESTS | | | [...] SANDERS | [address] | [place], [place] | | | [facility] | [facility] | [address] | | | TESTS | | | [...] MARILYN | [address] | [place], [place] | | | [facility] [place] | [address] | [address] | | | TESTS | | | [...] | + + + + + | [facility] | [address] | [place] [address] | | | SERVICES, CORE | KRISTEN [...] [facility] | [address] | [place] [address] | | | JANELL SHARP | KRISTEN [...] | | | LABORATORY | | | [facility] | | | SERVICES, | | | [...] [facility] | [address] | [place] [address] | | | SERVICES, CORE | PARK [...] HOSPITAL LAB[facility] | [address] | [place] [address] | | | SERVICES, CORE | KRISTEN [...] SANDERS | [address] | [place], [place] | | | [facility] [place] | [address] | [address] | | | TESTS | | | [...] MARQUAM | [address] | [place], [place] | | | OSCAR POINT OF CARE | [address] | [address] | | | TESTS | | | [...] + + + + + | [facility] | [address] | [place] [address] | | | SERVICES, CORE | KRISTEN [...] [facility] | [address] | [place] [address] | | | SERVICES, CORE | KRISTEN [...] | | | LABORATORY | | | [facility] | | | SERVICES, | | | [...] + + + + + | [facility] | [address] | [place] [address] | | | SERVICES, CORE | KRISTEN [...] + + + + + | [facility] | [address] [facility] | [place] [address] | | | SERVICES, CORE | PARK [...] SANDERS | [address] | [place], [place] | | | [facility] [place] | [facility] | [address] | | | TESTS | | | [...] - MARQUAM | [address] | [place], [place] | | | [facility]SCAR POINT OF CARE | [facility] | [address] | | | TESTS | | | [...] [facility] | [address] | [place] [address] | | | ARON, CORE | KRISTEN [...] [facility] | [address] | [place] [address] | | | SERVICES, CORE | PARK [...] | | | LABORATORY | | | [facility] | | | SERVICES, | | | [...] RILOLA GARDNER | [address] | [place] [address] | | | SERVICES, CORE | KRISTEN [...] | + + + + + | [facility] | [address] | [place] [address] | | | SERVICES, CORE | KRISTEN [...] MARQUAM | [address] | [place], [place] | | | [facility] | [address] | [address] | | | TESTS | | | [...] + + + + + | [facility] | [address] | [place] [address] | | | ARON, JANELL | KRISTEN [...] SANDERS | [address] | [place], [place] | | | [facility] | [facility] | [address] | | | TESTS | | | [...] MARILYN | [address] | [place], [place] | | | [facility] [place] | [address] | [address] | | | TESTS | | | [...] | + + + + + | [facility] | [address] | [place] [address] | | | SERVICES, CORE | KRISTEN [...] [facility] | [address] | [place] [address] | | | ARON, JANELL | PARK [...] | | | LABORATORY | | | [facility] | | | SERVICES, | | | [...] [facility] | [address] | [place] [address] | | | SERVICES, CORE | PARK [...] [facility] | [address] | [place] [address] | | | SERVICES, CORE | PARK [...] LABORATORY | [address] | [place] [address] | | | SERVICES, CORE | PARK [...] HOSPITAL LAB[facility]ORY | [address] | [place] [address] | | | SERVICES, CORE | KRISTEN [...] [facility] | [address] | [place] [address] | | | SERVICES, CORE [...] | | | LABORATORY | | | [facility] | | | SERVICES, | | | [...] + + + + + | [facility] | [address] | [place] [address] | | | SERVICES, CORE | PARK [...] | + + + + + | App[facility]ion [facility] | [address] | [place] [address] | | | SERVICES, CORE | KRISTEN [...] + + + + | [facility] | [address] | [place] [address] | | | [facility] | Ellen [...] [facility] | [address] | [place] [address] | | | SERVICES, JANELL | PARK [...] [facility] | [address] | [place] [address] | | | SERVICES, CORE | KRISTEN [...] [facility] | [address] | [place] [address] | | | SERVICES, CORE | KRISTEN [...] [facility] | [address] | [place] [address] | | | SERVICES, CORE | PARK [...] | | | LABORATORY | | | [facility] | | | SERVICES, | | | [...] ARTUR GARDNER | [address] | [place] [address] | | | SERVICES, CORE | PARK [...] + + + + + | [facility] | [address] | [place] [address] | | | SERVICES, CORE | PARK [...] [facility] | [address] | [place] [address] | | | SERVICES, CORE | PARK [...] + + + + + | [facility] | [address] | [place] [address] | | | SERVICES, CORE | KRISTEN [...] [facility] | [address] | [place] [address] | | | SERVICES, JANELL | KRISTEN [...] [facility] | [address] | [place] [address] | | | SERVICES, JANELL | KRISTEN [...] [facility] | [address] | [place], [place] | | | [facility] | [address] | [address] | | | TESTS | | | [...] HOSPITAL [facility] | [address] | [place] [address] | | | SERVICES, CORE | PARK [...] HOSPITAL LAB[facility] | [address] | [place] [address] | | | SERVICES, CORE | PARK [...] | | | LABORATORY | | | [facility] | | | SERVICES, | | | [...] + + + + + | [facility] | [address] | [place] [address] | | | SERVICES, CORE | PARK [...] + + + + + | [facility] | [address] [facility] | [place] [address] | | | SERVICES, CORE | PARK [...] [facility] | [address] | [place] [address] | | | JANELL SHARP | PARK [...] | | | LABORATORY | | | [facility] | | | SERVICES, | | | [...] [facility] | [address] | [place] [address] | | | SERVICES, CORE | PARK [...] | | | LABORATORY | | | [facility] | | | SERVICES, | | | [...] + | [facility] | [address] [facility] | [place] [address] | | | JANELL SHARP | KRISTEN [...] [facility] | [address] | [place], [place] | | | THERAPY | [facility] | [address] | | + + + + + [...] [facility] | [address] | [place], [place] | | | THERAPY | [address] | [address] | | + + + + + [...] [facility] | [address] | [place] [address] | | | SERVICES, CORE | PARK [...] + + + + + | [facility] | [address] | [place] [address] | | | SERVICES, CORE | KRISTEN [...] [facility] | [address] | [place] [address] | | | SERVICES, JANELL | KRISTEN [...] | | | LABORATORY | | | [facility] | | | SERVICES, | | | [...] + + + + + | [facility] | [address] | [place] [address] | | | SERVICES, CORE | PARK [...] + + + + + | [facility] | [address] | [place] [address] | | | SERVICES, CORE | KRISTEN [...] + + + + + + | ANIKA | 472 | ms | [facility] [...] DEPT OF | [address] | [place], [place] | | | CARDIOLOGY | [address] | [address] | | + + + + + X-RAY PORTABLE CHEST 1 VIEW (05/02/2014 2:11 AM PST) + + + + + + | Component | Value | Ref Range | Performed | Pathologist | | | | | At | Signature | + + + + + + | X-RAY | EXAM: SD CHEST 1 VIEW | | | | [...] | | + +---------+ + + | [facility] | | | | | RADIOLOGY | [...] HOSPITAL LAB[facility]ORY | [address] | [place] [address] | | | SERVICES, CORE | PARK [...] SANDERS | [address] | [place], [place] | | | [facility] [place] | [facility] | [address] | | | TESTS | | | [...] MARQU[facility] | [address] | [place], [place] | | | [facility] POINT OF CARE | [facility] | [address] | | | TESTS | | | [...] + + + + + | [facility] | [address] | [place] [address] | | | SERVICES, CORE | [address] | | | + + + + + X-RAY PORTABLE CHEST 1 VIEW (05/01/2014 3:37 AM PST) + + + + + + | Component | Value | Ref Range | Performed | Pathologist | | | | | At | Signature | + + + + + + | X-RAY | EXAM: SD CHEST 1 VIEW | | | | [...] Bilateral | | | | | | [id number] | | | | | | pleural [...] [facility] | [address] | [place] [address] | | | SERVICES, CORE | PARK [...] + + + + + | [facility] | [address] | [place] [address] | | | SERVICES, JANELL | KRISTEN [...] | | | LABORATORY | | | [facility] | | | SERVICES, | | | [...] [facility] | [address] | [place] [address] | | | SERVICES, CORE | PARK [...] HOSPITAL LAB[facility]ORY | [address] | [place] [address] | | | JANELL SHARP | KRISTEN [...] SANDERS | [address] | [place], [place] | | | [facility] | [address] | [address] | | | TESTS | | | [...] + + + | X-RAY | STUDY: SD CHEST 1 VIEW | | | | [...] 3.53 (H) | 0.00 - 0.02 | [facility] | | | | | K/cu mm [...] HOSPITAL LAB[facility] | [address] | [place] [address] | | | SERVICES, CORE | KRISTEN [...] [facility] | [address] [facility] | [place] [address] | | | SERVICES, JANELL | KRISTEN [...] [facility] | [address] | [place] [address] | | | SERVICES, JANELL | PARK [...] | | | LABORATORY | | | [facility] | | | SERVICES, | | | [...] + + + + + | [facility] | [address] [facility] | [place] [address] | | | SERVICES, CORE | KRISTEN [...] | | | LABORATORY | | | [facility] | | | SERVICES, | | | [...] the MDRD equation recommended by the | [facility] | | National Kidney Disease Education Program. [...] HOSPITAL LAB[facility]ORY | [address] | [place] [address] | | | JANELL SHARP | KRISTEN [...] MARILYN | [address] | [place], [place] | | | [facility] | [address] | [address] | | | TESTS | | | [...] [facility] | [address] | [place] [address] | | | SERVICES, CORE | PARK [...] [facility] | [address] | [place] [address] | | | SERVICES, CORE | PARK [...] | | | LABORATORY | | | [facility] | | | SERVICES, | | | [...] + + + + + | [facility] | [address] | [place] [address] | | | JANELL SHARP | KRISTEN [...] [facility] | [address] [facility] | [place] [address] | | | SERVICES, CORE | KRISTEN [...] + + + + + | [facility] | [address] | [place] [address] | | | SERVICES, JANELL | KRISTEN [...] SANDERS | [address] | [place], [place] | | | [facility] | [address] | [address] | | | TESTS | | | [...] [facility] | [address] | [place] [address] | | | SERVICES, CORE | PARK [...] [facility] | [address] | [place] [address] | | | SERVICES, CORE | PARK [...] [facility] | [address] | [place] [address] | | | SERVICES, CORE | PARK [...] [facility] | [address] | [place] [address] | | | SERVICES, CORE | PARK [...] | | | LABORATORY | | | [facility] | | | SERVICES, | | | [...] + | [facility] | [address] | [place] [address] | | | SERVICES, CORE | KRISTEN [...] + + + + + | [facility] | [address] [facility] | [place] [address] | | | JANELL SHARP | KRISTEN [...] HOSPITAL LABORATORY | [address] | [place] [address] | | | ARON, JANELL | KRISTEN [...] + + + + + | [facility] | [address] | [place] [address] | | | SERVICES, CORE | KRISTEN [...] SANDERS | [address] | [place], [place] | | | [facility] | [facility] | [address] | | | TESTS | | | | + + + + + X-RAY ABD LTD FEEDING TUBE EVAL PORTABLE (04/27/2014 10:33 AM PST) + + + + + + | Component | Value | Ref Range | Performed | Pathologist | | | | | At | Signature | + + + + + + | X-RAY ABD | STUDY: SD SAI LTD | | | | | [...] + + + + + | [facility] | [address] | [place] [address] | | | SERVICES, CORE | KRISTEN [...] + + + + + | [facility] | [address] | [place] [address] | | | ARON, [facility] | [address] | | | + [...] + + + + + | [facility] | [address] | [place] [address] | | | SERVICES, CORE | KRISTEN [...] [facility] | [address] | [place] [address] | | | SERVICES, CORE | PARK [...] | | | LABORATORY | | | [facility] | | | SERVICES, | | | [...] + + + + + | [facility] | [address] | [place] [address] | | | SERVICES, CORE | KRISTEN [...] [facility] | [address] | [place] [address] | | | ARON, JANELL | KRISTEN [...] + | [facility] | [address] | [place] [address] | | | SERVICES, CORE | KRISTEN [...] + + + + + | [facility] | [address] [facility] | [place] [address] | | | SERVICES, CORE | P[address] [...] + + + + + | [facility] | [address] | [place] [address] | | | SERVICES, CORE | [address] | | | + + + + + MAGNESIUM, PLASMA (04/26/2014 7:41 PM PST) + +-------+ + + + | Component | Value | Ref Range | Performed | Pathologist | | | | | At | Signature | + +-------+ + + + | MAGNESIUM,P | 2.0 | 1.8 - 2.5 mg/dL | [facility] | | | LASMA | | [...] HOSPITAL LABORATORY | [address] | [place] [address] | | | SERVICES, CORE | PARK [...] | | | LABORATORY | | | [facility] | | | SERVICES, | | | [...] + + + + + | [facility] | [address] | [place] [address] | | | SERVICES, JANELL | KRISTEN [...] PRIMARY | | | | | | CARAMEL CANDY MAKER HELPER: Rudy | | | | | | [...] SANDERS | [address] | [place], [place] | | | KAILEY MOORE | [facility] | [address] | | | TESTS | | | [...] + + + + + | [facility] | [address] | [place] [address] | | | SERVICES, CORE | KRISTEN [...] [facility] | [address] | [place] [address] | | | SERVICES, CORE | PARK [...] + + + + + | [facility] | [address] | [place] [address] | | | SERVICES, CORE | KRISTEN [...] + + + + + | [facility] | [address] | [place] [address] | | | SERVICES, CORE | KRISTEN [...] + + + + + | [facility] | [address] | [place] [address] | | | SERVICES, CORE | PARK [...] LABORATORY | [address] | [place] [address] | | | SERVICES, CORE | PARK [...] | | | LABORATORY | | | [facility] | | | SERVICES, | | | [...] + | [facility] | [address] [facility] | [place] [address] | | | SERVICES, JANELL | KRISTEN [...] [facility] | [address] | [place] [address] | | | SERVICES, CORE | PARK [...] HOSPITAL LABORATORY | [address] | [place] [address] | | | SERVICES, CORE | PARK [...] - [facility] | [address] | [place], [place] | | | [facility] | [address] | [address] | | | TESTS | | | [...] | | | LABORATORY | | | [facility] | | | SERVICES, | | | [...] + + + + + | [facility] | [address] | [place] [address] | | | JANELL SHARP | KRISTEN [...] + + + + + | [facility] | [address] | [place], [place] | | | [facility] | [address] | [address] | | | TESTS | | | [...] + + + + + | [facility] | [address] | [place] [address] | | | SERVICES, CORE | KRISTEN [...] + | [facility] | [address] | [place] [address] | | | SERVICES, CORE | PARK [...] + + + + | PRODUCT | [id number] | | [facility] | | | UNIT [...] + + + + | BLOOD | [id number] | | [facility] | | | PRODUCT [...] DEPARTMENT OF | [address] | [place] [address] | | | PATHOLOGY | [address] [...] + + + + | PRODUCT | [id number] | | [facility] | | | UNIT [...] + + + + | BLOOD | [id number] | | [facility] | | | PRODUCT [...] [facility] DE[facility] | [address] [facility] [address] | [place] [address] | | | PATHOLOGY | [address] [...] + + + + + | [facility] | [address] | [place] [address] | | | SERVICES, CORE | [address] [...] + + + + + | [facility] | [address] [facility] | [place] [address] | | | SERVICES, CORE | KRISTEN [...] | | | LABORATORY | | | [facility] | | | SERVICES, | | | [...] the MDRD equation recommended by the | [facility] | | National Kidney Disease Education Program. [...] HOSPITAL LABORATORY | [address] | [place] [address] | | | ARON, JANELL | KRISTEN [...] [facility] | [address] | [place] [address] | | | SERVICES, CORE | [address] [...] [facility] | [address] | [place] [address] | | | SERVICES, CORE | PARK [...] [facility] | [address] | [place] [address] | | | SERVICES, CORE | KRISTEN [...] HOSPITAL LAB[facility]ATORY | [address] | [place] [address] | | | SERVICES, JANELL | KRISTEN [...] - [facility] | [address] | [place], [place] | | | [facility] | [address] | [address] | | | TESTS | | | | + + + + + CAPILLARY BLOOD GLUCOSE (NO GABRIELAG), POC (04/24/2014 10:47 AM PST) + +-------+ [...] + + + | [facility] | [address] | [place], [place] | | | [facility] | [address] | [address] | | | TESTS | | | [...] [facility] | [address] | [place] [address] | | | SERVICES, CORE | [address]ARK [...] + + + + + | [facility] | [address] | [place] [address] | | | SERVICES, JANELL | KRISTEN [...] + + | Performing | Address | City/State[facility] | Phone Number | | [...] [facility] | [address] | [place] [address] | | | SERVICES, CORE | [address] [...] HOSPITAL LABORATORY | [address] | [place] [address] | | | JANELL SHARP | [address] | | | + + + + + X-RAY PORTABLE CHEST 1 VIEW (04/24/2014 5:32 AM PST) + + + + + + | Component | Value | Ref Range | Performed | Pathologist | | | | | At | Signature | + + + + + + | X-RAY | STUDY: SD CHEST 1 VIEW | | | | [...] + + + + + | [facility] | [address] [facility] [facility] | [place] [address] | | | JANELL SHARP | KRISTEN [...] | | | LABORATORY | | | [facility] | | | SERVICES, | | | [...] HOSPITAL LAB[facility]ORY | [address] | [place] [address] | | | ARON, JANELL | [address]ARK [...] + + + + + | [facility] | [address] [facility] | [place] [address] | | | SERVICES, CORE | [address] [...] + + + + + | [facility] | [address] | [place] [address] | | | SERVICES, CORE | KRISTEN [...] [facility] | [address] | [place], [place] | | | THERAPY | [address] | [address] | | + + + + + [...] + + | [facility] | [address] [facility] | [place], [place] | | | THERAPY | [address] | [address] | | + + + + + [...] | | | LABORATORY | | | [facility] | | | SERVICES, | | | [...] the MDRD equation recommended by the | [facility] | | National Kidney Disease Education Program. [...] HOSPITAL LABORATORY | [address] | [place] [address] | | | JANELL SHARP | KRISTEN [...] [facility] | [address] | [place] [address] | | | SERVICES, CORE | PARK [...] + + + + + | [facility] | [address] | [place] [address] | | | SERVICES, CORE | PARK [...] HOSPITAL LABORATORY | [address] | [place] [address] | | | SERVICES, CORE | KRISTEN [...] [facility] | [address] [facility] | [place] [address] | | | SERVICES, CORE | PARK [...] [facility] | [address] | [place] [address] | | | SERVICES, CORE | PARK [...] [facility] | [address] | [place] [address] | | | SERVICES, CORE | PARK [...] | | | LABORATORY | | | [facility] | | | SERVICES, | | | [...] + + + + + | [facility] | [address] | [place] [address] | | | SERVICES, CORE | KRISTEN [...] HOSPITAL LABORATORY | [address] | [place] [address] | | | ARON, JANELL | KRISTEN [...] + + | [facility] | [address] | [place], [place] | | | [facility] | [facility] | [address] | | | TESTS | | | [...] PRIMARY | | | | | | CARAMEL CANDY MAKER HELPER: Rudy | | | | | | [...] 5 | | | | | | Marshallese vascular sheath | | | | | [...] | | | | for a 5 Marshallese | | | | | | IMAcatheter. [...] | | | | artery. A 3 Marshallese | | | | | | microcatheterwas [...] DEPT OF | [address] | [place], [place] | | | CARDIOLOGY | [address] | [address] | | + + + + + [...] + + + + | PRODUCT | [id number] | | [facility] | | | UNIT [...] + + + + | BLOOD | [id number] | | [facility] | | | PRODUCT [...] [facility] | [address] | [place] [address] | | | PATHOLOGY | [address] [...] + + + + | PRODUCT | [id number] | | [facility] | | | UNIT [...] + + + + | BLOOD | [id number] | | [facility] | | | PRODUCT [...] DEPARTMENT OF | [address] | [place] [address] | | | PATHOLOGY | [address] [...] + + + + | PRODUCT | [id number] | | [facility] | | | UNIT [...] + + + + | BLOOD | [id number] | | [facility] | | | PRODUCT [...] [facility] | [address] | [place] [address] | | | PATHOLOGY | [address] [...] + + + + | PRODUCT | [id number] | | [facility] | | | UNIT [...] + + + + | BLOOD | [id number] | | [facility] | | | PRODUCT [...] DEPARTMENT OF | [address] | [place] [address] | | | PATHOLOGY | [address] [...] + + + + | PRODUCT | [id number] | | [facility] | | | UNIT [...] + + + + | BLOOD | [id number] | | [facility] | | | PRODUCT [...] [facility] DE[facility] | [address] | [place] [address] | | | PATHOLOGY | [address] [...] + + + + | PRODUCT | [id number] | | [facility] | | | UNIT [...] + + + + | BLOOD | [id number] | | [facility] | | | PRODUCT [...] DEPARTMENT OF | [address] | [place] [address] | | | PATHOLOGY | [address] | | | + + + + + X-RAY PORTABLE CHEST 1 VIEW (04/23/2014 11:41 AM PST) + + + + + + | Component | Value | Ref Range | Performed | Pathologist | | | | | At | Signature | + + + + + + | X-RAY | EXAM: SD CHEST 1 VIEW | | | | [...] + + + + | PRODUCT | [id number] | | [facility] | | | UNIT [...] + + + + | BLOOD | [id number] | | [facility] | | | PRODUCT [...] DEPARTMENT OF | [address] | [place] [address] | | | PATHOLOGY | [address] [...] + + + + | PRODUCT | [id number] | | [facility] | | | UNIT [...] + + + + | BLOOD | [id number] | | [facility] | | | PRODUCT [...] DEPARTMENT OF | [address] | [place] [address] | | | PATHOLOGY | [address] [...] + + + + | PRODUCT | [id number] | | [facility] | | | UNIT [...] + + + + | BLOOD | [id number] | | [facility] | | | PRODUCT [...] [facility] DEPART[facility] | [address] | [place] [address] | | | PATHOLOGY | [address] [...] + + + + | PRODUCT | [id number] | | [facility] | | | UNIT [...] + + + + | BLOOD | [id number] | | [facility] | | | PRODUCT [...] DEPARTMENT OF | [address] | [place] [address] | | | PATHOLOGY | [address] [...] + + + + | PRODUCT | [id number] | | [facility] | | | UNIT [...] + + + + | BLOOD | [id number] | | [facility] | | | PRODUCT [...] DEPARTMENT OF | [address] | [place] [address] | | | PATHOLOGY | [address] [...] + + + + | PRODUCT | [id number] | | [facility] | | | UNIT [...] + + + + | BLOOD | [id number] | | [facility] | | | PRODUCT [...] | + + + + + | [facility] | [address] | [place] [address] | | | PATHOLOGY | [address] [...] + + + + | PRODUCT | [id number] | | [facility] | | | UNIT [...] + + + + | BLOOD | [id number] | | [facility] | | | PRODUCT [...] [facility] | [address] | [place] [address] | | | PATHOLOGY | [address] [...] + + + + | PRODUCT | [id number] | | [facility] | | | UNIT [...] + + + + | BLOOD | [id number] | | [facility] | | | PRODUCT [...] | + + + + + | [facility] | [address] | [place] [address] | | | PATHOLOGY | [address] [...] + + + + | PRODUCT | [id number] | | [facility] | | | UNIT [...] + + + + | BLOOD | [id number] | | [facility] | | | PRODUCT [...] [facility] | [address] | [place] [address] | | | PATHOLOGY | [address] [...] + + + + | PRODUCT | [id number] | | [facility] | | | UNIT [...] + + + + | BLOOD | [id number] | | [facility] | | | PRODUCT [...] DEPARTMENT OF | [address] | [place] [address] | | | PATHOLOGY | [address] [...] + + + + | PRODUCT | [id number] | | [facility] | | | UNIT [...] + + + + | BLOOD | [id number] | | [facility] | | | PRODUCT [...] [facility] | [address] | [place] [address] | | | PATHOLOGY | [address] [...] + + + + | PRODUCT | [id number] | | [facility] | | | UNIT [...] + + + + | BLOOD | [id number] | | [facility] | | | PRODUCT [...] | + + + + + | [facility] | [address] | [place] [address] | | | PATHOLOGY | [address] [...] + + + + | PRODUCT | [id number] | | [facility] | | | UNIT [...] + + + + | BLOOD | [id number] | | [facility] | | | PRODUCT [...] [facility] | [address] | [place] [address] | | | PATHOLOGY | [address] [...] + + + + | PRODUCT | [id number] | | [facility] | | | UNIT [...] + + + + | BLOOD | [id number] | | [facility] | | | PRODUCT [...] DEPARTMENT OF | [address] | [place] [address] | | | PATHOLOGY | [address] [...] [facility] | [address] | [place] [address] | | | SERVICES, CORE | [address] [...] [facility] | [address] | [place] [address] | | | SERVICES, CORE | [address] [...] HOS[facility] LAB[facility] | [address] | [place] [address] | | | JANELL SHARP | KRISTEN [...] | | | LABORATORY | | | [facility]OME[facility] | | | SERVICES, | | | [...] [facility] | [address] | [place] [address] | | | SERVICES, CORE | [address] | | | + + + + + UA, DIPSTICK ONLY (04/23/2014 11:09 AM PST) + + [...] [facility] | [address] | [place] [address] | | | SERVICES, CORE | [address] [...] [facility] | [address] | [place] [address] | | | SERVICES, CORE | [address] [...] HOSPITAL LABORATORY | [address] | [place] [address] | | | JANELL SHARP | KRISTEN [...] [facility] | [address] | [place], [place] | | | [facility] OF CARE | [address] | [address] | | | TESTS | | | [...] | + + + + + | [facility] | [address] | [place] [address] | | | SERVICES, | [address] [...] [facility] | [address] | [place] [address] | | | SERVICES, | [address] [...] + + + + | PRODUCT | [id number] | | [facility] | | | UNIT [...] + + + + | BLOOD | [id number] | | [facility] | | | PRODUCT [...] | + + + + + | [facility] | [address] | [place] [address] | | | PATHOLOGY | [address] [...] + + + + | PRODUCT | [id number] | | [facility] | | | UNIT [...] + + + + | BLOOD | [id number] | | [facility] | | | PRODUCT [...] DEPARTMENT OF | [address] | [place] [address] | | | PATHOLOGY | [address] [...] + + + + | PRODUCT | [id number] | | [facility] | | | UNIT [...] + + + + | BLOOD | [id number] | | [facility] | | | PRODUCT [...] | + + + + + | [facility] | [address] | [place] [address] | | | PATHOLOGY | [address] [...] + + + + | PRODUCT | [id number] | | [facility] | | | UNIT [...] + + + + | BLOOD | [id number] | | [facility] | | | PRODUCT [...] DEPARTMENT OF | [address] | [place] [address] | | | PATHOLOGY | [address] [...] + + + + | PRODUCT | [id number] | | [facility] | | | UNIT [...] + + + + | BLOOD | [id number] | | [facility] | | | PRODUCT [...] | + + + + + | [facility] | [address] | [place] [address] | | | PATHOLOGY | [address] [...] + + + + | PRODUCT | [id number] | | [facility] | | | UNIT [...] + + + + | BLOOD | [id number] | | [facility] | | | PRODUCT [...] DEPARTMENT OF | [address] | [place] [address] | | | PATHOLOGY | [address] [...]
--- OUTSIDE RECORDS SUMMARY | ~2019-03-09 | XMS | Encounter Summary ---
Demographics + + + | Address | [address] | | | [place] [address] | + + + | Home Phone [...] Team Providers + +------+ + | Care Special Tester Name | Role | Phone | + +------+ + PCP | Unavailable | + +------+ + Encounter Details +--------+ + + + + | Date | Type | Department | Care Team | Description | +--------+ + + + + | 04/12/ | Hospital | [facility] | Dionicio, | Acute | | 2015 - | Encounter | [facility] | Bonnieroxane Jones, | gastroenteritis; PAF | | | | INTENSIVE CARE UNIT | MD Jaspal [address] | (paroxysmal atrial | | 04/23/ | | [address] | [place], | fibrillation) (FORMERLY [facility]); | | 2014 | | [place], [place] | [place] [address] | Sepsis([phone]) | | | | [address] | [phone] | (HCC); Acute | | | | [phone] | | systolic heart | | | | | | failure (HCC); Acute | | | | | | respiratory failure | | | | | | (FORM[facility]LY [facility]); Aspiration | | | | | | pneumonia ([facility]); | | | | | | COPD (chronic | | | | | | obstructive | | | | | | pulmonary disease) | | | | | | (FORMERLY [facility]); Crohn's | | | | | | disease ([facility]); | | | | | | 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 [...] , recurrent UTI, admitted on 04/06/14 in [facility] for nausea, vomiting pre viously ingested [...] intubated on 04/12/13 and t ransfered from [facility] to [facility]. SEE assessment and plan for summary of [...] Left Esophagogastroduodenoscopy N/A 04/21/2014 Procedure: ESOPHAGOGASTRODUODENOSCOPY; Surgeon: Boyn Petty MD; Location: [facility] BEDSIDE PROCEDURE; Service: Gastroenterology; Laterality: [...] 04/23/14 0528 Gross per 24 hour Intake 31180 ml Output 6589 ml Net 7458 ml [...] fibrillation) Stricture esophagus dilated with bougue 20 greenlandic 04/21/2014 ASSESSMENT & PLAN Intrabd bleeding Abd/spleen [...] on hemaglobin trending down. Called general surgeon environmental compliance officer. No interventional radiology. Pt taken to OR [...] products since that time. Surgical history from [facility] records Small bowel resection with 17 inches removed fro her Crohn's disease- Done by Dr. Madan oGrdon APPPascual Hysterectomy Tonsillectomy abd adenoidectomy Left suclavian [...] Reported Idiopathic Cardiomyopathy: LVEF 30% by ECHO ([place]). Normal EF 60-65% ECHO at [facility] 04/20/14 Impression 1. Overall left ventricular systolic [...] at home prior to this admission ad [facility]. This could have been due to her esophageal stricture which was just diagnosed 04/21/14 and treated with dilatation. Last sputum 04/19/14 Description SPUTUM GRAM STAIN GREATER THAN 10 WBCS/LPF GRAM STAIN LESS THAN 10 SEC/LPF GRAM STAIN NO ORGANISMS SEEN CULTURE 1+ CULTURE MATTHIEU ALBICANS A CULTURE Testing performed at [facility], [address] [place] [address] Resulting PCP negative. ID: B/L Aspiration pneumonia [...] compromised: On Remecade as out pt. From [facility] positive blood culture from 04/08/14 Staph capitis S to vanco, cipr, gent, levo, tigecycline I clinda. GI/NUTRITION: Crohn's disease. " for at least 40 yrs" As an outpt pt was on prilosec, remicade ( every 6 weeks via rolando cath) and prednisone 5mg po daily ( from 04/06/2014 H and P admission for n/v/d abd pain and dehydration [place], [place]) Unknown last colonoscopy. Unknown last EGD [...] u p with hemotologist. Acquired record from [facility] and discussed 04/21/14 night with obed nd and daughter to acquire records from [facility] where pt has had additional work up in the past . From [facility] records. Confirmed that pt is on outpt [...] 04/23/14219 Date of Service: 04/23/14219 Status: Signed Pretzel Cooker: Yokasta Torrez RN (Registered Nurse) 5 Laps left in patient post op for packing. Trice Moon - 04/23/2014 12:22 AM PSTFormatting of this note might be different from t he original. Significant Event by Trice Fagan MD at 04/23/1421 Author: Trice Fagan MD Service: Data Communications Engineer Author Type: Data Communications Engineer Filed: 04/23/1440 Date of Service: 04/23/1421 Status: Addendum Pretzel Cooker: Trice Fagan MD (Physician) Related Notes: Original [...] at 04/22/142010 Author: Jannet Shields MD Service: Data Communications Engineer Author Type: Data Communications Engineer Filed: 04/22/142118 Date of Service: 04/22/142010 Status: Addendum Pretzel Cooker: Jannet Shields MD (Physician) Related Notes: Original Note by Jannet Shields MD (Physician) filed at 04/22/14 0838 [facility] Service: Data Communications Engineer Progress Note Mackenzie Hartley 58 y.o. [...] , recurrent UTI, admitted on 04/06/14 in [facility] for nausea, vomiting pre viously ingested [...] given re intubation 04/19/14: Care conference with Data Communications Engineer/AIMS. Continue with full treatment. Heparin infusi on was started due to the splenic artery thrombosis. 04/20/14: Dr. Petty was consult from GI to scope the patient prior to extubation. 04/22/14: Hemorrhagic shock from intraperitoneal bleed on heparin, Ovid, Right IJ Cordis, 6 units PRBC, 2 [...] Procedure: ESOPHAGOGASTRODUODENOSCOPY; Surgeon: Bony Petty MD; Location: [facility] BEDSIDE PROCEDURE; Service: Gastroenterology; Laterality: [...] fibrillation) Stricture esophagus dilated with bougue 20 greenlandic 04/21/2014 Crohn's disease Microcytic anemia Aspiration pneumonia [...] stable. Idiopathic Cardiomyopathy: LVEF 60% here at [facility] improved over the 30% noted in [place] [...] dilated by Dr Petty with a 20 greenlandic robert 04/21/14 Intraperitoneal bleed/Hemorrhagic Shock: While on [...] Date of Service: 04/22/14 1315 Status: Signed Pretzel Cooker: Cher Bailey RN (Registered Nurse) Patient increasingly [...] Author: LEVI Acharya Service: (none) Author Type: Sustainment Logistics Analyst Filed: 04/22/14 1124 Date of Service: 04/22/14 1122 Status: Signed Pretzel Cooker: LEVI Acharya (Sustainment Logistics Analyst) Attended morning rounds. No family present during [...] 1458 Date of Service: 04/22/14814 Status: Signed Pretzel Cooker: Rich Jiménez PT (Physical Therapist) 04/22/14814 PT [...] 04/21/141824 Date of Service: 04/21/141821 Status: Signed Pretzel Cooker: Taylor Trevino RN (Registered Nurse) Attempted to call pt's Norm [phone] to obtain consent to give blood. No answe r, will attempt to call again soon. TAYLOR TREVINO 04/21/2014 onver roshan Transaction, Provider Unknown - 04/21/2014 4:46 PM PST Progress Notes by Darline Hartley RN at 04/21/14 1646 Author: Darline Hartley RN Service: (none) Author Type: Registered Nurse Filed: 04/21/14 1647 Date of Service: 04/21/14 164 Status: Signed Pretzel Cooker: Darline Hartley RN (Registered Nurse) Savary dilators used incrementally at 18Fr and 20Fr. DARLINE HARTLEY onver roshan Transaction, Provider Unknown - 04/21/2014 3:30 PM PST Progress Notes by Taylor Trevino RN at 04/21/14 1530 Author: Taylor Trevino RN Service: (none) Author Type: Registered Nurse Filed: 04/21/14 2717 Date of Service: 04/21/14 1530 Status: Signed Pretzel Cooker: Taylor Trevino RN (Registered Nurse) Dr ePtty at bedside to asses pt. Orders for NPO received. Stopped tube feeding and flush ed OG with 20 ML h2o. TAYLOR TREVINO 04/21/2014 onver roshan Transaction, Provider Unknown - 04/21/2014 1:40 PM PST Progress Notes by Leah Chris RPH at 04/21/14 1340 Author: Leah Chris RPH Service: (none) Author Type: Pharmacist Filed: 04/21/14 1340 Date of Service: 04/21/14 1340 Status: Signed Pretzel Cooker: Leah Chris RPH (Pharmacist) Day 10 Vanco [...] Date of Service: 04/21/14 1015 Status: Signed Pretzel Cooker: Jaz Mobley PT (Physical Therapist) 04/21/14 1015 [...] 04/21/14 1008 Author: Trice Fagan MD Service: Data Communications Engineer Author Type: Data Communications Engineer Filed: 04/21/14 9775 Date of Service: 04/21/14 100 Status: Signed Pretzel Cooker: Trice Fagan MD (Physician) [facility] Service: Data Communications Engineer Progress Note Mackenzie Hartley 58 y.o. [...] , recurrent UTI, admitted on 04/06/14 in [facility] for nausea, vomiting pre viously ingested [...] given re intubation 04/19/14: Care conference with Data Communications Engineer/AIMS. Continue with full treatment. Heparin infusi [...] stable. Idiopathic Cardiomyopathy: LVEF 30% by ECHO ([place]). ECHO here at [facility] 04/20/14 Impression 1. Overall left ventricular systolic [...] (none) Author Type: Registered Nurse Filed: 04/20/14 8349 Date of Service: 04/20/14 170 Status: Signed Pretzel Cooker: Taylor Trevino RN (Registered Nurse) Labs drawn from [facility] per protocol. Flushed with 20ML NS, jhony back and wasted 8ML blo od and then jhony sample. Labs sent to lab per orders. TAYLOR TREVINO 04/20/2014 onver roshan Transaction, Provider Unknown - 04/20/2014 2:54 PM PST Progress Notes by Pia Garcia RD, ALO at 04/20/14 2345 Author: Pia Garcia RD, CD Service: (none) Author Type: Registered Dietitian Filed: 04/20/14 3568 Date of Service: 04/20/14 1474 Status: Signed Pretzel Cooker: Pia Garcia RD, CD (Registered Dietitian) Nutrition [...] Progress Notes by JENARO Perez at 04/20/14 0262 Author: JENARO Perez Service: Data Communications Engineer Author Type: Data Communications Engineer Filed: 04/20/14 2259 Date of Service: 04/20/141402 Status: Signed Pretzel Cooker: JENARO Perez (Nurse Practitioner) [facility] Service: Data Communications Engineer Progress Note Mackenzie Hartley 58 y.o. Hospital Day: LOS: 8 days Post-Op Day: * No surgery found * Consulting Physicians Treatment Team: Consulting Physician: Eric Chavez MD Consulting Physician: Bony Petty MD Admitting Provider: Bonnie Greenberg MD SUBJECTIVE Patient Summary: Per Dr Greenberg: The patient is a 58 y.o. 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 Continue with full treatment. Heparin infusi [...] Life issues: Was a DNR while in [place] but consented to be intubated prior to [...] stable. Idiopathic Cardiomyopathy: LVEF 30% by ECHO ([place]). PULM: Pulmonary Edema: Related to cardiomyopathy and [...] 04/20/14899 Date of Service: 04/20/14899 Status: Signed Pretzel Cooker: Leah Chris RPH (Pharmacist) Day 9 Vanco Tx Todays Scr= 0.58, WBC= 21.3 with estim CrCl= 110.5 ml/min Pharmacist: LEAH CHRIS 04/20/2014 8:59 AM onver roshan Transaction, Provider Unknown - 04/19/2014 7:53 PM PST Progress Notes by Mila Pinedo at 04/19/141952 Author: Mila Pinedo Service: (none) Author Type: Filed: 04/19/142001 Date of Service: 04/19/141952 Status: Signed Pretzel Cooker: Mila Pinedo (Envelope Stuffer) AIM care conference with Dr Chavez and Maryjane AIM/CM expanded to include ICU Data Communications Engineer and pts current RN. Present also were Mackenzie's , Kole, and two of the four children, Silva and Otilia. Data Communications Engineer gave a thorough explanation of the [...] for a good part of her vocation. Data Communications Engineer asked for another care conference on Friday 04/21 to update the family on Mackenzie' s progress. oLyly mills MSW - 04/19/2014 4:14 PM PST Progress Notes by LEVI Cervantes at 04/19/14 1614 Author: LEVI Cervantes Service: (none) Author Type: Sustainment Logistics Analyst Filed: 04/19/14 7294 Date of Service: 04/19/14 1614 Status: Signed Pretzel Cooker: LEVI Cervantes (Sustainment Logistics Analyst) SOPHIE SAEED, SOPHIE SIMS, Envelope Stuffer, pt's RN Kassandra Garrett and ICU Data Communications Engineer met with family to ex plore goals of care. ICU Data Communications Engineer thoroughly explained pt's course of care [...] and dtrs Angi and Otilia live in [place], [place]. Family e xpressed strong concerns that [...] several months and had see n an squaring shear operator for the mouth and throat sores to no avail. Pt's spouse Kole and pt's dtr express tremendous frustration over what they perceive has been poor med ical management of pt's illnesses prior to this admission. ICU Data Communications Engineer recommended a wo rk up of [...] 04/19/141327 Date of Service: 04/19/141327 Status: Signed Pretzel Cooker: Paula Barnes RPH (Pharmacist) Clinical Pharmacy Note: [...] Date of Service: 04/19/14 115 Status: Signed Pretzel Cooker: Rhianna Blackwood RN (Registered Nurse) Wound care [...] Progress Notes by JENARO Perez at 04/19/14 3274 Author: JENARO Perez Service: Data Communications Engineer Author Type: Data Communications Engineer Filed: 04/20/14 0749 Date of Service: 04/19/14 4369 Status: Signed Pretzel Cooker: JENARO Perez (Nurse Practitioner) [facility] Service: Data Communications Engineer Progress Note Mackenzie Odilia 58 y.o. Hospital Day: LOS: 7 days Post-Op Day: * No surgery found * Consulting Physicians Treatment Team: Consulting Physician: Eric Chavez MD Admitting Provider: Bonnie Greenberg MD SUBJECTIVE Patient Summary: Per Dr Greenberg: The patient is a 58 y.o. 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 Continue with full treatment. Events Overnight: [...] Life issues: Was a DNR while in [place] but consented to be intubated prior to [...] stable. Idiopathic Cardiomyopathy: LVEF 30% by ECHO ([place]). PULM: Pulmonary Edema: Related to cardiomyopathy and [...] Author: LEVI Acharya Service: (none) Author Type: Sustainment Logistics Analyst Filed: 04/19/14 113 Date of Service: 04/19/14 113 Status: Signed Pretzel Cooker: LEVI Acharya (Sustainment Logistics Analyst) Care conference arranged for today at 2pm with Dr. Chavez. Await decision of family regardin g continued aggressive care vs. Comfort care. onver roshan Transaction, Provider Unknown - 04/19/2014 9:10 AM PST Therapy Progress Note by Rich Jiménez PT at 04/19/14 0910 Author: Rich Jiménez PT Service: (none) Author Type: Physical Therapist Filed: 04/19/14 1153 Date of Service: 04/19/14 0910 Status: Signed Pretzel Cooker: Rich Jiménez PT (Physical Therapist) 04/19/14 0910 PT Last Visit PT Received On 04/19/14 Requires PT Follow Up On hold yly Krishnamurthy MSW - 04/18/2014 5:22 PM PST Progress Notes by LEVI Cervantes at 04/18/14 172 Author: LEVI Cervantes Service: (none) Author Type: Sustainment Logistics Analyst Filed: 04/18/141723 Date of Service: 04/18/141721 Status: Signed Pretzel Cooker: LEVI Cervantes (Sustainment Logistics Analyst) SOPHIE SIMS was summoned to pt's room by pt's RN. Two adult dtr's were bedside. HUNTING SALES ASSOCIATE asked it they would be able to meet with SOPHIE service , college archivist/MACHINE TOOL MECHANIC, ICU HUNTING SALES ASSOCIATE and phone operator vero hoover to discuss goals of [...] Date of Service: 04/18/14 1419 Status: Signed Pretzel Cooker: Rich Jiménez PT (Physical Therapist) 04/18/14 1419 PT Last Visit PT Received On 04/18/14 Requires PT Follow Up On hold onver roshan Transaction, Provider Unknown - 04/18/2014 12:07 PM PST Case Management by LEVI Acharya at 04/18/14 1207 Author: LEVI Acharya Service: (none) Author Type: Sustainment Logistics Analyst Filed: 04/18/14 1210 Date of Service: 04/18/14 1207 Status: Signed Pretzel Cooker: LEVI Acharya (Sustainment Logistics Analyst) called pt's spouse Kole. Spoke with him [...] one of them to accompany him to [place] and is waiting to hear from the [...] Author: LEVI Cervantes Service: (none) Author Type: Sustainment Logistics Analyst Filed: 04/18/14 1033 Date of Service: 04/18/14 103 Status: Signed Pretzel Cooker: LEVI Cervantes (Sustainment Logistics Analyst) AIM HUNTING SALES ASSOCIATE called pt's spouse Kole using phone contact number on [facility] RN CM progress not e. No [...] 04/18/14930 Date of Service: 04/18/14930 Status: Signed Pretzel Cooker: Paula Barnes RPH (Pharmacist) Clinical Pharmacy Note: Vancomycin Day 7 No trough ordered today Dose @ 1400 Vancomycin 1250mg Daily IVPB Improvement in Scr. If this is sustained, will check level tomorrow to see we are not unde rdosing. Paula Barnes RP 04-18-2014 Mai Madrigal ARNP - 04/18/2014 6:42 AM PST Progress Notes by JENARO Mcdermott at 04/18/14 0642 Author: JENARO Mcdermott Service: Data Communications Engineer Author Type: Nurse Practitioner Filed: 04/18/14 1137 Date of Service: 04/18/14 0642 Status: Signed Pretzel Cooker: JENARO Mcdermott (Nurse Practitioner) [facility] Service: Data Communications Engineer Progress Note Mackenzie Hartley 58 y.o. [...] COPD, recurrent UTI, admitted on 04/06/14 in [facility] for nausea, vomiti ng previously ingested [...] Life issues: Was a DNR while in [place] but convinced to be intubated prior to [...] stable. Idiopathic Cardiomyopathy: LVEF 30% by ECHO ([place]). Lasix 20mg today (04/18) PULM: Pulmonary Edema: [...] Paula Barnes RP at 04/17/141411 Author: Paula Banres RPH Service: (none) Author Type: Pharmacist Filed: 04/17/141411 Date of Service: 04/17/141411 Status: Signed Pretzel Cooker: Paula Barnes RPH (Pharmacist) Clinical Pharmacy Note: Vancomycin Day 6 Vancomycin trough today at 1300 was 17.5 Scr 0.96 mg/dL CrCl 66.8 ml/min WBC 19.2 Continue Vancomycin 1250 mg IV q24h Dose at 1400 Paula Barnes RP 04-17-2014 onver roshan Transaction, Provider Unknown - 04/17/2014 11:07 AM PST Case Management by LEVI Acharya at 04/17/14 1107 Author: LEVI Acharya Service: (none) Author Type: Sustainment Logistics Analyst Filed: 04/17/148 Date of Service: 04/17/141106 Status: Signed Pretzel Cooker: LEVI Acharya (Sustainment Logistics Analyst) Pt re-intubated yesterday. Dr. Chavez to consult [...] 04/17/1445 Date of Service: 04/17/14939 Status: Signed Pretzel Cooker: Jessica Huerta PT (Physical Therapist) 04/17/14939 PT Last Visit PT Received On 04/17/14 Requires PT Follow Up On hold (see comments) Other Comments Comments Pt remains intubated. Awaiting new orders when/if appropriate. Mai Madrigal ARNP - 04/17/2014 8:58 AM PST Progress Notes by JENARO Mcdermott at 04/17/14 0858 Author: JENARO Mcdermott Service: Data Communications Engineer Author Type: Nurse Practitioner Filed: 04/17/14 1237 Date of Service: 04/17/1458 Status: Addendum Pretzel Cooker: JENARO Mcdermott (Nurse Practitioner) Related Notes: Original Note by JENARO Mcdermott (Nurse Practitioner) filed at 10/23 1111 [facility] Service: Data Communications Engineer Progress Note Mackenzie Hartley 58 y.o. Hospital Day: LOS: 5 days Post-Op Day: * No surgery found * Consulting Physicians Treatment Team: Consulting Physician: Eric Chavez MD Admitting Provider: Bonnie Greenberg MD SUBJECTIVE Patient Summary: Per Dr Greenberg: The patient is a 58 y.o. 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 Will use prophylactic dose Lovenox, & consider warfarin PAF: Paroxysmal Atrial Fib treated with amiodarone now staying in [place]. Idiopathic Cardiomyopathy: LVEF 30% by ECHO from recent ECHO in [place] PULM: Pulmonary Edema: Related to cardiomyopathy and [...] Notes by Nadir Yee RPH at 04/16/14 9154 Author: Nadir Yee RPH Service: Pharmacy Author Type: Pharmacist Filed: 04/16/14 8093 Date of Service: 04/16/14 1541 Status: Signed Pretzel Cooker: Nadir Yee RPH (Pharmacist) Vancomycin day 5, trough at 1300 today was 19.3 (goal 15-20). Will continue at same dosing and recheck a trough level on 04/17 at 1300. onver roshan Transaction, Provider Unknown - 04/16/2014 1:25 PM PST Progress Notes by Jacoby Muñoz RD at 04/16/14 1329 Author: Jacoby Muñoz RD Service: (none) Author Type: Registered Dietitian Filed: 04/16/14 5550 Date of Service: 04/16/14 1325 Status: Signed Pretzel Cooker: Jacoby Muñoz RD (Registered Dietitian) Nutrition Follow-Up [...] Date of Service: 04/16/14 1222 Status: Signed Pretzel Cooker: Rich Jiménez PT (Physical Therapist) 04/16/14 1222 [...] Date of Service: 04/16/14 1151 Status: Signed Pretzel Cooker: Nadir Yee RPH (Pharmacist) Vancomycin day 5, est crcl 74.5ml/min, awaiting trough level at 1300 today. onver roshan Transaction, Provider Unknown - 04/16/2014 11:37 AM PST Case Management by Alessia Smith RN at 04/16/14 1137 Author: Alessia Smith RN Service: (none) Author Type: Registered Nurse Filed: 04/16/14 1618 Date of Service: 04/16/14 1137 Status: Addendum Pretzel Cooker: Alessia Smith RN (Registered Nurse) Related Notes: Original Note by Alessia Smith RN (Registered Nurse) filed at 04/16/14 6949 Tried to call but number on facesheet is non-functioning. Called [facility] for t elephone number (they have same number). They will also fax a page from pt.s last admission to them that states pt.iIs full code. Will continue to try and connect with per Dr. Hsu request. Kole's phone as listed in the room is [phone]. Spoke with him, he didn't have plans to visit today, he is unemployed and funds are tight. Will let Dr. Segundo know and pos sible phone contact to happen this afternoon. 1300 Kole's number and info given to Dr. Segundo. . Also showed Dr. Segundo fax from [facility], d/c summary from 04/12/14, documenting change from [...] and only recently decided full code at [facility]. Kole to consult 4 adult children. Will contin ue aggressive care for another day or two per Dr Segundo. onver roshan Transaction, Provider Unknown - 04/16/2014 10:48 AM PST Nurse Progress Note by Becka Lama RN at 04/16/14 1048 Author: Becka Lama RN Service: (none) Author Type: Registered Nurse Filed: 04/16/14 1049 Date of Service: 04/16/14 1048 Status: Signed Pretzel Cooker: Becka Lama RN (Registered Nurse) Attempted to visit pt for Coumadin Education. Pt intubated in ICU. Coumadin education pina klet left on chart to review with pt as appropriate. Jannet Roach MD - 04/16/2014 5:31 AM PSTFormatting of this note might be different from the briana ginal. Progress Notes by Jannet Shields MD at 04/16/14530 Author: Jannet Shields MD Service: Data Communications Engineer Author Type: Data Communications Engineer Filed: 04/16/1449 Date of Service: 04/16/14530 Status: Signed Pretzel Cooker: Jannet Shields MD (Physician) [facility] Service: Data Communications Engineer Progress Note Mackenzie Hartley 58 y.o. [...] COPD, recurrent UTI, admitted on 04/06/14 in [facility] for nausea, vomiti ng previously ingested [...] Life issues: Was a DNR while in [place] but convinced to be intubated prior to tr cristina, will consult palliative care service and engage in conversation about this i ssue CV: Splenic artery thrombosis. Will use prophylactic dose Lovenox, & consider warfarin PAF: Paroxysmal Atrial Fib treated with amiodarone now staying in [place]. Idiopathic Cardiomyopathy: LVEF 30% by ECHO from recent ECHO in [place] PULM: Pulmonary Edema: Related to cardiomyopathy and [...] 04/15/141801 Date of Service: 04/15/141801 Status: Signed Pretzel Cooker: Hipolito Isaac () Pt sleeping. Will continue to provide care as needed/requested. Chaplain Chandler onver roshan Transaction, Provider Unknown - 04/15/2014 3:45 PM PST Therapy Progress Note by Rich Jiménez PT at 04/15/14 1545 Author: Rich Jiménez PT Service: (none) Author Type: Physical Therapist Filed: 04/15/14 1743 Date of Service: 04/15/141544 Status: Signed Pretzel Cooker: Rich Jiménez PT (Physical Therapist) 04/15/14 1545 [...] Author: LEVI Acharya Service: (none) Author Type: Sustainment Logistics Analyst Filed: 04/15/14 1150 Date of Service: 04/15/14 1146 Status: Addendum Pretzel Cooker: LEVI Acharya (Sustainment Logistics Analyst) Related Notes: Original Note by LEVI Acharya (Sustainment Logistics Analyst) filed at 04/15/14 1148 Attended morning rounds. Pt is now on bi-pap. called and received update from RN. Informed that he would not be visiting pt today. He has not visited pt since her admit. I have placed pt on list at [facility] as a back up plan as she will likely need SNF for reha b. PT notes indicate this as well. [facility] - [phone] onver roshan Transaction, Provider Unknown - 04/15/2014 8:12 AM PST Progress Notes by Nadir Yee RPH at 04/15/14811 Author: Nadir Yee RPH Service: Pharmacy Author Type: Pharmacist Filed: 04/15/14811 Date of Service: 04/15/14811 Status: Signed Pretzel Cooker: Nadir Yee RPH (Pharmacist) Vancomycin day 4, [...] at 04/15/14644 Author: Jannet Shields MD Service: Data Communications Engineer Author Type: Data Communications Engineer Filed: 04/15/14 0702 Date of Service: 04/15/14644 Status: Signed Pretzel Cooker: Jannet Shields MD (Physician) [facility] Service: Data Communications Engineer Progress Note Mackenzie Hartley 58 y.o. [...] COPD, recurrent UTI, admitted on 04/06/14 in [facility] for nausea, vomiting previously ing ested [...] 04/14/141850 Date of Service: 04/14/141850 Status: Signed Pretzel Cooker: Alireza Vides RPH (Pharmacist) vanco level came back high at 33.0. Will hold current dose and redraw a level tomorrow morn ing with am labs. Goal trough 15-20. onver roshan Transaction, Provider Unknown - 04/14/2014 1:36 PM PST Therapy Progress Note by Juma Bazzi PT at 04/14/14 7323 Author: Juma Bazzi PT Service: (none) Author Type: Physical Therapist Filed: 04/14/14 9975 Date of Service: 04/14/141335 Status: Signed Pretzel Cooker: Juma Bazzi PT (Physical Therapist) 04/14/14 1336 PT Last Visit PT Received On 04/14/14 Reason for Treatment Deconditioning;Other (comment) (Acute Resp Failure; co-morbidities) Requires PT Follow Up Awaiting tx order Follow up PT Only? Yes (Further mobility assessment) PT Eval/Reassessment Date 04/14/14 Assistance Required 1 person;2 person Employee Relations Manager Needed No Requires PT Follow Up Awaiting [...] pt's mentation progresses. Prior Function Level of [place] Independent with ADLs;Independent with functional mobility;Independe nt [...] Date 04/14/14 Assistance Required 1 person;2 person Employee Relations Manager Needed No Precautions Other Precautions Fall risk; [...] Date of Service: 04/14/14 1210 Status: Signed Pretzel Cooker: Deborah Torres () This a new pt. Attempted visit, but pt is sedated and on bi-pap. No familly present at this time. Chaplain Deborah Torres onver roshan Transaction, Provider Unknown - 04/14/2014 9:42 AM PST Case Management by LEVI Acharya at 04/14/14941 Author: LEVI Acharya Service: (none) Author Type: Sustainment Logistics Analyst Filed: 04/14/14942 Date of Service: 04/14/14941 Status: Signed Pretzel Cooker: LEVI Acharya (Sustainment Logistics Analyst) 04/14/14938 Discharge Planning Evaluation Admitting Diagnosis acute [...] assist from . May need HHPT via [facility]. May n eed IPR?? DEMARCO MONTEZ onver roshan Kapooraction, Provider Unknown - 04/14/2014 9:29 AM PST Case Management by LEVI Acharya at 04/14/14928 Author: LEVI Acharya Service: (none) Author Type: Sustainment Logistics Analyst Filed: 04/14/14943 Date of Service: 04/14/14928 Status: Signed Pretzel Cooker: LEVI Acharya (Sustainment Logistics Analyst) Pt is sleeping with oxymask on. She was extubated early this morning. is not at e bedside. I called to obtain assessment. Zeferino Sheets MD - 04/14/2014 5:29 AM PST Progress Notes by Zeferino Aly MD at 04/14/14528 Author: Zeferino Aly MD Service: Data Communications Engineer Author Type: Data Communications Engineer Filed: 04/14/1438 Date of Service: 04/14/14528 Status: Signed Pretzel Cooker: Zeferino Aly MD (Physician) [facility] Service: Data Communications Engineer Progress Note Mackenzie Hartley 58 y.o. [...] COPD, recurrent UTI, admitted on 04/06/14 in [facility] for nausea, vomiting previously ing ested [...] Notes by Bonnie Greenberg MD at 04/13/14 5279 Author: Bonnie Greenberg MD Service: Data Communications Engineer Author Type: Physician Filed: 04/13/14 7149 Date of Service: 04/13/14 4133 Status: Signed Pretzel Cooker: Bonnie Greenberg MD (Physician) [facility] Service: Data Communications Engineer Progress Note Mackenzie Hartley 58 y.o. [...] COPD, recurrent UTI, admitted on 04/06/14 in [facility] for nausea, vomiting previously ing ested [...] Date of Service: 04/13/14 1015 Status: Signed Pretzel Cooker: Osvadlo Allen RRT (Registered Respiratory Therapist) Tried to wean to PS/CPAP but she is not breathing regularly enough. Placed on PRVC with low RR & automode for now. onver roshan Transaction, Provider Unknown - 04/13/2014 9:57 AM PST Case Management by LEVI Acharya at 04/13/14 0926 Author: LEVI Acharya Service: (none) Author Type: Sustainment Logistics Analyst Filed: 04/13/14 1045 Date of Service: 04/13/14 0957 Status: Addendum Pretzel Cooker: LEVI Acharya (Sustainment Logistics Analyst) Related Notes: Original Note by LEVI Acharya (Sustainment Logistics Analyst) filed at 04/13/14 1044 Pt was transferred from [facility]. She is vented. has not called or v isited. I attempted to reach him by home phone ([phone]) however he did not answer. I [facility] stafff has left messages as well. I called the [place] [employer] and requested a drive-by to see if can be reached. flikdate will call me back after they have tried to make contact with . Addendum: Received t/c from pt's , Kole. He states that the police came to his ho me to request that he call us. He stated that we had been leaving messages on patient's cell phone. His cell number is [phone]. I asked him if he would be [...] prefe r that. He requested that the Data Communications Engineer call him. Provided Dr. Greenberg with [...] 04/13/14915 Date of Service: 04/13/14913 Status: Signed Pretzel Cooker: Jaquelin Cat RN (Registered Nurse) Received order [...] 04/12/142033 Date of Service: 04/12/142033 Status: Signed Pretzel Cooker: Britni Shaffer RPH (Pharmacist) Renal Dosing Monitoring: [...] 04/12/142032 Date of Service: 04/12/142032 Status: Signed Pretzel Cooker: Britni Shaffer RPH (Pharmacist) Clinical Pharmacy Note: Initiation of Vancomycin Pharmacy Dosing Mackenzie Hartley 58 y.o. female 1.753 m (5' 9") 78.4 kg (172 lb 13.5 oz) Body mass index is 25.51 kg/(m^2). CREATININE Date Value Range Status 04/12/2014 0.96 0.50 - 1.00 mg/dL Final Testing performed at [facility];[address] [place] [address] Estimated CrCl : CREATININE: 0.96 (04/12/14 1731) [...] a dusky-brown | | | friable tissue. Tactical Intelligence Officer sections are submitted in cassettes | | | (A1-A3). FM MICROSCOPIC EXAMINATION: Histologic sections of all | | | submitted blocks are examined by light microscopy. These findings, | | | together with the gross examination, support the pathologic diagnosis. | | | PERFORMING LABORATORY: Professional interpretation and technical | | | preparation was performed by [facility], [facility] | | | [address] [address] (Firewall Administrator: | | | Raphael Yee M.D.; BILL#: [id number]). Diagnostician: Salty Bolton | | | King [...] | LAB | | | | [address];[place], [place] | | | | | | [address] | | | | + + [...] [place] | | | | | | [address] | | | | + + + + + + | RED CELL | 3.62 (L)Comment: Testing | 3.70 - 5.10 | EXTERNAL | | | COUNT | performed at [facility];[address] | M/uL | LAB | | | | [address];[place] | | | | | | [address] | | | | + + + + + + | Hgb | 10.5 (L)Comment: Testing | 11.3 - 15.5 | EXTERNAL | | | | performed at [facility];888 | g/dL | LAB | | | | [address];[place] | | | | | | [address] | | | | + + + + + + | Hematocrit, | 31.3 (L)Comment: Testing | 34.0 - 46.0 % | EXTERNAL | | | POC | performed at [facility];[address] | | LAB | | | | [address];[place] | | | | | | [address] | | | | + + + + + + | MCV | 86.5Comment: Testing | 80.0 - 100.0 fl | EXTERNAL | | | | performed at [facility];[address] | | LAB | | | | [address];[place] | | | | | | [address] | | | | + + + + + + | MCH | 29.1Comment: Testing | 27.0 - 34.0 pg | EXTERNAL | | | | performed at [facility];[address] | | LAB | | | | [address];[place] | | | | | | [address] | | | | + + + + + + | MCHC | 33.6Comment: Testing | 32.0 - 35.5 | EXTERNAL | | | | performed at [facility];888 | g/dL | LAB | | | | [address];[place] | | | | | | [address] | | | | + + + + + + | RDW-CV | 46.8Comment: Testing | 37 - 53 fl | EXTERNAL | | | | performed at [facility];[address] | | LAB | | | | [address];[place] | | | | | | [address] | | | | + + + + + + | Platelet | 185Comment: Testing | 150 - 400 K/uL | EXTERNAL | | | Count | performed at [facility];[address] | | LAB | | | Plasma | [address];[place] | | | | | | [address] | | | | + + + + + + | MPV | 7.2Comment: Testing | fl | EXTERNAL | | | | performed at [facility];[address] | | LAB | | | | [address];[place] | | | | | | [address] | | | | + + + + + + | Differentia | MANUALComment: Testing | | EXTERNAL | | | l Type | performed at [facility];[address] | | LAB | | | | [address];[place] | | | | | | [address] | | | | + + + + + + | Nucleated | 2 (H)Comment: Testing | /100WBC | EXTERNAL | | | Red Blood | performed at [facility];[address] | | LAB | | | Cells | [address];[place] | | | | | | [address] | | | | + + + + + + | Segmented | 71Comment: Testing | % | EXTERNAL | | | Neutrophils | performed at [facility];[address] | | LAB | | | Manual | [address];[place] | | | | | | [address] | | | | + + + [...] | | | Metamyelocy | performed at [facility];[address] | | LAB | | | petros | [address];[place] | | | | | | [address] | | | | + + + + + + | Lymphocytes | 12Comment: Testing | % | EXTERNAL | | | Manual | performed at [facility];[address] | | LAB | | | | [address];[place] | | | | | | [address] | | | | + + + + + + | Monocytes | 3Comment: Testing | % | EXTERNAL | | | Manual | performed at [facility];[address] | | LAB | | | | [address];[place] | | | | | | [address] | | | | + + + + + + | Absolute | 8.3 (H)Comment: Testing | 1.9 - 7.4 K/uL | EXTERNAL | | | Neutrophils | performed at [facility];[address] | | LAB | | | | [address];[place] | | | | | | [address] | | | | + + + + + + | Bands | 1.5 (H)Comment: Testing | 0 - 0.2 K/uL | EXTERNAL | | | Manual | performed at [facility];[address] | | LAB | | | | [address];[place] | | | | | | [address] | | | | + + + + + + | Absolute | 0.1 (H)Comment: Testing | K/uL | EXTERNAL | | | Metamyelocy | performed at [facility];888 | | LAB | | | petros | [address];[place] | | | | | | [address] | | | | + + + + + + | Absolute | 1.4Comment: Testing | 1.0 - 3.9 K/uL | EXTERNAL | | | Lymphocytes | performed at [facility];[address] | | LAB | | | | [address];[place] | | | | | | [address] | | | | + + + + + + | Absolute | 0.4Comment: Testing | 0 - 0.8 K/uL | EXTERNAL | | | Monocytes | performed at [facility];[address] | | LAB | | | | [address];[place] | | | | | | [address] | | | | + + + + + + | RBC | RBC AND PLT MORPHOLOGY | | EXTERNAL | | | Morphology | APPEAR NORMALComment: | | LAB | | | | Testing performed at | | | | | | [facility];[address];[place] [address] | | | | + + + [...] | LAB | | | | [address];[place] | | | | | | [address] | | | | + + + [...] [facility];888 | mmol/L | LAB | | | | [address];[place], [place] | | | | | | [address] | | | | + + + [...] | LAB | | | | [address];[place], [place] | | | | | | [address] | | | | + + + [...] at [facility] | | LAB | | | | [address];[place], [place] | | | | | | [address] | | | | + + + [...] at [facility];[address] [place] [address] | | | | | | [facility];[place] [address] | | | | + + + [...] | | Patient | performed at [facility];[address] | | LAB | | | | [address];[place] | | | | | | [address] | | | | + + [...] at [facility];[address] | | | | | | [facility];[place], [place] | | | | | | [address] | | | | + + + [...] at [facility] | | LAB | | | | [address] [facility];[place], [place] | | | | | | [address] | | | | + + + [...] [place] | | | | | | [address] | | | | + + + + + + | RED CELL | 2.14 (L)Comment: Testing | 3.70 - 5.10 | EXTERNAL | | | COUNT | performed at [facility];888 | M/uL | LAB | | | | [address];[place] | | | | | | [address] | | | | + + + [...] [facility];[address] | | | | | | [address];[place] | | | | | | [address] | | | | + + + + + + | Hematocrit, | 18.5 (LL)Comment: CALLED | 34.0 - 46.0 % | EXTERNAL | | | POC | BEATRICE ANN | | LAB | | | | M AT 0450 BY BeautylishREAD BACK | | | | | | RESULTS VERIFIEDTesting | | | | | | performed at [facility];[address] | | | | | | [address];[place] | | | | | | [address] | | | | + + + + + + | MCV | 86.4Comment: Testing | 80.0 - 100.0 fl | EXTERNAL | | | | performed at [facility];[address] | | LAB | | | | [address];[place] | | | | | | [address] | | | | + + + + + + | MCH | 29.4Comment: Testing | 27.0 - 34.0 pg | EXTERNAL | | | | performed at [facility];[address] | | LAB | | | | [address];[place] | | | | | | [address] | | | | + + + + + + | MCHC | 34.1Comment: Testing | 32.0 - 35.5 | EXTERNAL | | | | performed at [facility];888 | g/dL | LAB | | | | [address];[place] | | | | | | [address] | | | | + + + + + + | RDW-CV | 42.4Comment: Testing | 37 - 53 fl | EXTERNAL | | | | performed at [facility];[address] | | LAB | | | | [address];[place] | | | | | | [address] | | | | + + + + + + | Platelet | 139 (L)Comment: Testing | 150 - 400 K/uL | EXTERNAL | | | Count | performed at [facility];[address] | | LAB | | | Plasma | [address];[place] | | | | | | [address] | | | | + + + + + + | MPV | 7.3Comment: Testing | fl | EXTERNAL | | | | performed at [facility];[address] | | LAB | | | | [address];[place] | | | | | | [address] | | | | + + + + + + | Differentia | MANUALComment: Testing | | EXTERNAL | | | l Type | performed at [facility];[address] | | LAB | | | | [address];[place] | | | | | | [address] | | | | + + + + + + | Nucleated | 3 (H)Comment: Testing | /100WBC | EXTERNAL | | | Red Blood | performed at [facility];[address] | | LAB | | | Cells | [address];[place] | | | | | | [address] | | | | + + + + + + | Segmented | 85Comment: Testing | % | EXTERNAL | | | Neutrophils | performed at [facility];[address] | | LAB | | | Manual | [address];[place] | | | | | | [address] | | | | + + + + + + | % Bands | 3Comment: Testing | % | EXTERNAL | | | | performed at [facility];[address] | | LAB | | | | [address];[place] | | | | | | [address] | | | | + + + + + + | % | 1Comment: Testing | % | EXTERNAL | | | Metamyelocy | performed at [facility];[address] | | LAB | | | petros | [address];[place] | | | | | | [address] | | | | + + + + + + | Lymphocytes | 8Comment: Testing | % | EXTERNAL | | | Manual | performed at [facility];[address] | | LAB | | | | [address];[place] | | | | | | [address] | | | | + + + + + + | Monocytes | 3Comment: Testing | % | EXTERNAL | | | Manual | performed at [facility];[address] | | LAB | | | | [address];[place] | | | | | | [address] | | | | + + + + + + | Absolute | 12.9 (H)Comment: Testing | 1.9 - 7.4 K/uL | EXTERNAL | | | Neutrophils | performed at [facility];[address] | | LAB | | | | [address];[place] | | | | | | [address] | | | | + + + + + + | Bands | 0.5 (H)Comment: Testing | 0 - 0.2 K/uL | EXTERNAL | | | Manual | performed at [facility];[address] | | LAB | | | | [address];[place] | | | | | | [address] | | | | + + + + + + | Absolute | 0.2 (H)Comment: Testing | K/uL | EXTERNAL | | | Metamyelocy | performed at [facility];[address] | | LAB | | | petros | [address];[place] | | | | | | [address] | | | | + + + + + + | Absolute | 1.2Comment: Testing | 1.0 - 3.9 K/uL | EXTERNAL | | | Lymphocytes | performed at [facility];[address] | | LAB | | | | [address];[place] | | | | | | [address] | | | | + + + + + + | Absolute | 0.5Comment: Testing | 0 - 0.8 K/uL | EXTERNAL | | | Monocytes | performed at [facility];[address] | | LAB | | | | [address];[place] | | | | | | [address] | | | | + + + + + + | RBC | 1+Comment: POLYNORMAL | | EXTERNAL | | | Morphology | PLT MORPHTesting | | LAB | | | | performed at [facility];[address] | | | | | | [address];[place] | | | | | | [address] | | | | | | | [...] EXTERNAL | | | | performed at [facility], [address] | | LAB | | | | [address], | | | | | | [place] [address] | | | | + + + [...] | LAB | | | | [address];[place], [place] | | | | | | [address] | | | | + + + [...] EXTERNAL | | | | performed at [facility], [address] | | LAB | | | | [address], | | | | | | [place] [address] | | | | + + + [...] | | | | | [place] [address] | | | | + + + [...] | | | | | [place] [address] | | | | + + + + + + | Albumin | 2.3 (L)Comment: Testing | 3.6 - 5.0 g/dL | EXTERNAL | | | | performed at [facility], [address] | | LAB | | | | [address], | | | | | | [place] [address] | | | | + + + + + + | Bilirubin | 1.0Comment: Testing | 0.1 - 1.5 mg/dL | EXTERNAL | | | Total | performed at [facility], [address] | | LAB | | | | [address], | | | | | | [place] [address] | | | | + + + + + + | Bilirubin | 0.4 (H)Comment: Testing | 0.0 - 0.3 mg/dL | EXTERNAL | | | Direct | performed at [facility], [address] | | LAB | | | | [address], | | | | | | [place] [address] | | | | + + + + + + | ALP, | 44Comment: Testing | 35 - 115 U/L | EXTERNAL | | | External | performed at [facility], [address] | | LAB | | | | [address], | | | | | | [place] [address] | | | | + + + + + + | AST | 1,792 (H)Comment: | 10 - 45 U/L | EXTERNAL | | | | Testing performed at | | LAB | | | | [facility], [address] | | | | | | [place] | | | | | | [address] | | | | + + + + + + | ALT | 901 (H)Comment: Testing | 10 - 65 U/L | EXTERNAL | | | | performed at [facility], [address] | | LAB | | | | [address], | | | | | | [place] [address] | | | | + + [...] | | | | | [place] [address] | | | | + + + + + + | K | 3.7Comment: Testing | 3.5 - 4.9 | EXTERNAL | | | | performed at [facility], [address] | mmol/L | LAB | | | | [address], | | | | | | [place] [address] | | | | + + + + + + | Cl | 113 (H)Comment: Testing | 99 - 109 mmol/L | EXTERNAL | | | | performed at [facility], [address] | | LAB | | | | [address], | | | | | | [place] [address] | | | | + + + + + + | CO2 | 28Comment: Testing | 23 - 32 mmol/L | EXTERNAL | | | | performed at [facility], [address] | | LAB | | | | [address], | | | | | | [place] [address] | | | | + + + + + + | Anion Gap | 10Comment: Testing | 5 - 20 mmol/L | EXTERNAL | | | | performed at [facility], [address] | | LAB | | | | [address], | | | | | | [place] [address] | | | | + + + + + + | Glucose, | 146 (H)Comment: Testing | 65 - 99 mg/dL | EXTERNAL | | | Fasting | performed at [facility], [address] | | LAB | | | | [address], | | | | | | [place] [address] | | | | + + + + + + | BUN | 37 (H)Comment: Testing | 8 - 25 mg/dL | EXTERNAL | | | | performed at [facility], [address] | | LAB | | | | [address], | | | | | | [place] [address] | | | | + + + + + + | Creatinine | 1.21 (H)Comment: Testing | 0.50 - 1.00 | EXTERNAL | | | | performed at [facility], [address] | mg/dL | LAB | | | | [address], | | | | | | [place] [address] | | | | + + + + + + | BUN/Creatin | 31Comment: Testing | | EXTERNAL | | | ine Ratio | performed at [facility], [address] | | LAB | | | | [address], | | | | | | [place] [address] | | | | + + + + + + | Calcium | 7.9 (L)Comment: Testing | 8.5 - 10.2 | EXTERNAL | | | | performed at [facility], [address] | mg/dL | LAB | | | | [address], | | | | | | [place] [address] | | | | + + + [...] | | | | | | at [facility], [address] | | | | | | [address], | | | | | | [place] [address] | | | | + + + [...] [place] | | | | | | [address] | | | | + + + + + + | RED CELL | 3.39 (L)Comment: Testing | 3.70 - 5.10 | EXTERNAL | | | COUNT | performed at [facility] [place];[address] | M/uL | LAB | | | | [address];[place] | | | | | | [address] | | | | + + + + + + | Hgb | 9.6 (L)Comment: Testing | 11.3 - 15.5 | EXTERNAL | | | | performed at [facility] [place];888 | g/dL | LAB | | | | [address];[place] | | | | | | [address] | | | | + + + + + + | Hematocrit, | 29.4 (L)Comment: Testing | 34.0 - 46.0 % | EXTERNAL | | | POC | performed at [facility] [place];[address] | | LAB | | | | [address];[place] | | | | | | [address] | | | | + + + + + + | MCV | 86.8Comment: Testing | 80.0 - 100.0 fl | EXTERNAL | | | | performed at [facility] [place];[address] | | LAB | | | | [address];[place] | | | | | | [address] | | | | + + + + + + | MCH | 28.2Comment: Testing | 27.0 - 34.0 pg | EXTERNAL | | | | performed at [facility] [place];[address] | | LAB | | | | [address];[place] | | | | | | [address] | | | | + + + + + + | MCHC | 32.5Comment: Testing | 32.0 - 35.5 | EXTERNAL | | | | performed at [facility] [place];888 | g/dL | LAB | | | | [address];[place] | | | | | | [address] | | | | + + + + + + | RDW-CV | 42.4Comment: Testing | 37 - 53 fl | EXTERNAL | | | | performed at [facility];[address] | | LAB | | | | [address];[place] | | | | | | [address] | | | | + + + + + + | Platelet | 57 (L)Comment: Testing | 150 - 400 K/uL | EXTERNAL | | | Count | performed at [facility];[address] | | LAB | | | Plasma | [address];[place] | | | | | | [address] | | | | + + + + + + | MPV | 8.8Comment: Testing | fl | EXTERNAL | | | | performed at [facility];[address] | | LAB | | | | [address];[place] | | | | | | [address] | | | | + + + + + + | Differentia | MANUALComment: Testing | | EXTERNAL | | | l Type | performed at [facility];[address] | | LAB | | | | [address];[place] | | | | | | [address] | | | | + + + + + + | Nucleated | 2 (H)Comment: Testing | /100WBC | EXTERNAL | | | Red Blood | performed at [facility];[address] | | LAB | | | Cells | [address];[place] | | | | | | [address] | | | | + + + + + + | Segmented | 76Comment: Testing | % | EXTERNAL | | | Neutrophils | performed at [facility];[address] | | LAB | | | Manual | [address];[place] | | | | | | [address] | | | | + + + + + + | % Bands | 10Comment: Testing | % | EXTERNAL | | | | performed at [facility];[address] | | LAB | | | | [address];[place] | | | | | | [address] | | | | + + + + + + | % | 2Comment: Testing | % | EXTERNAL | | | Metamyelocy | performed at [facility];[address] | | LAB | | | petros | [address];[place] | | | | | | [address] | | | | + + + + + + | Lymphocytes | 9Comment: Testing | % | EXTERNAL | | | Manual | performed at [facility];[address] | | LAB | | | | [address];[place] | | | | | | [address] | | | | + + + + + + | Monocytes | 3Comment: Testing | % | EXTERNAL | | | Manual | performed at [facility];[address] | | LAB | | | | [address];[place] | | | | | | [address] | | | | + + + + + + | Absolute | 11.0 (H)Comment: Testing | 1.9 - 7.4 K/uL | EXTERNAL | | | Neutrophils | performed at [facility];[address] | | LAB | | | | [address];[place] | | | | | | [address] | | | | + + + + + + | Bands | 1.5 (H)Comment: Testing | 0 - 0.2 K/uL | EXTERNAL | | | Manual | performed at [facility];[address] | | LAB | | | | [address];[place] | | | | | | [address] | | | | + + + + + + | Absolute | 0.3 (H)Comment: Testing | K/uL | EXTERNAL | | | Metamyelocy | performed at [facility];[address] | | LAB | | | petros | [address];[place] | | | | | | [address] | | | | + + + + + + | Absolute | 1.3Comment: Testing | 1.0 - 3.9 K/uL | EXTERNAL | | | Lymphocytes | performed at [facility];[address] | | LAB | | | | [address];[place] | | | | | | [address] | | | | + + + + + + | Absolute | 0.4Comment: Testing | 0 - 0.8 K/uL | EXTERNAL | | | Monocytes | performed at [facility];[address] | | LAB | | | | [address];[place] | | | | | | [address] | | | | + + + + + + | Platelet | DECREASEDComment: | | EXTERNAL | | | Estimate | Testing performed at | | LAB | | | | [facility];[address];[place] [address] | | | | + + + + + + | RBC | 1+Comment: POLYTesting | | EXTERNAL | | | Morphology | performed at [facility];[address] | | LAB | | | | [address];[place] | | | | | | [address] | | | | | | | [...] [place] | | | | | | [address] | | | | + + + + + + | PCO2 ART | 44Comment: Testing | 35 - 45 mmHg | EXTERNAL | | | | performed at [facility];[address] | | LAB | | | | [address];[place] | | | | | | [address] | | | | + + + + + + | PO2 ART | 251 (H)Comment: Testing | 80 - 105 mmHg | EXTERNAL | | | | performed at [facility];[address] | | LAB | | | | [address];[place] | | | | | | [address] | | | | + + + + + + | HCO3 ART | 24Comment: Testing | 22 - 26 mmol/L | EXTERNAL | | | | performed at [facility];[address] | | LAB | | | | [address];[place] | | | | | | [address] | | | | + + + + + + | POC | 26Comment: Testing | 23 - 27 mEq/L | EXTERNAL | | | APPEARANCE | performed at [facility];[address] | | LAB | | | UA | [address];[place] | | | | | | [address] | | | | + + + + + + | Base | 1Comment: Testing | 0.0 - 2.0 | EXTERNAL | | | deficit | performed at [facility];888 | mmol/L | LAB | | | | [address];[place] | | | | | | [address] | | | | + + + + + + | O2 SAT ART | 100 (H)Comment: Testing | 95 - 98 % | EXTERNAL | | | | performed at [facility];[address] | | LAB | | | | [address];[place] | | | | | | [address] | | | | + + + + + + | Sodium, POC | 146 (H)Comment: Testing | 135 - 145 mEq/L | EXTERNAL | | | | performed at [facility];[address] | | LAB | | | | [address];[place] | | | | | | [address] | | | | + + + + + + | Potassium, | 4.5Comment: Testing | 3.5 - 5.0 mEq/L | EXTERNAL | | | POC | performed at [facility];[address] | | LAB | | | | [address];[place] | | | | | | [address] | | | | + + + + + + | Ionized | 0.91 (L)Comment: Testing | 1.12 - 1.32 | EXTERNAL | | | Calcium, | performed at [facility];888 | mmol/L | LAB | | | POC | [address];[place] | | | | | | [address] | | | | + + + + + + | Glucose, | 232 (H)Comment: Testing | 65 - 99 mg/dL | EXTERNAL | | | POC | performed at [facility];[address] | | LAB | | | | [address];[place] | | | | | | [address] | | | | + + + + + + | Hematocrit, | 32 (L)Comment: Testing | 35.0 - 46.0 % | EXTERNAL | | | POC | performed at [facility];[address] | | LAB | | | | [address];[place] | | | | | | [address] | | | | + + + + + + | Hemoglobin, | 10.9 (L)Comment: Testing | 11.6 - 15.5 | EXTERNAL | | | POC | performed at [facility];888 | g/dL | LAB | | | | [address];[place] | | | | | | [address] | | | | + + + [...] | | | | | | ACUTE MS CKTRP PHONED TO | | | | | | ICU HELADIO Patiño AT 0339 BY | | | | | | LJREAD BACK RESULTS | | | | | | VERIFIEDTesting | | | | | | performed at [facility];[address] | | | | | | [address];[place], [place] | | | | | | [address] | | | | + + [...] | | | M AT 0145 [facility] | | | | | | RESULTS VERIFIEDTesting | | | | | | performed at [facility];[address] | | | | | | [address];[place] | | | | | | [address] | | | | + + + + + + | RED CELL | 3.32 (L)Comment: Testing | 3.70 - 5.10 | EXTERNAL | | | COUNT | performed at [facility];888 | M/uL | LAB | | | | [address];[place] | | | | | | [address] | | | | + + + + + + | Hgb | 9.7 (L)Comment: Testing | 11.3 - 15.5 | EXTERNAL | | | | performed at [facility];888 | g/dL | LAB | | | | [address];[place] | | | | | | [address] | | | | + + + + + + | Hematocrit, | 29.3 (L)Comment: Testing | 34.0 - 46.0 % | EXTERNAL | | | POC | performed at [facility];[address] | | LAB | | | | [address];[place] | | | | | | [address] | | | | + + + + + + | MCV | 88.5Comment: Testing | 80.0 - 100.0 fl | EXTERNAL | | | | performed at [facility];[address] | | LAB | | | | [address];[place] | | | | | | [address] | | | | + + + + + + | MCH | 29.1Comment: Testing | 27.0 - 34.0 pg | EXTERNAL | | | | performed at [facility];[address] | | LAB | | | | [address];[place] | | | | | | [address] | | | | + + + + + + | MCHC | 32.9Comment: Testing | 32.0 - 35.5 | EXTERNAL | | | | performed at [facility];888 | g/dL | LAB | | | | [address];[place] | | | | | | [address] | | | | + + + + + + | RDW-CV | 45.9Comment: Testing | 37 - 53 fl | EXTERNAL | | | | performed at [facility];[address] | | LAB | | | | [address];[place] | | | | | | [address] | | | | + + + + + + | Platelet | 155Comment: Testing | 150 - 400 K/uL | EXTERNAL | | | Count | performed at [facility];[address] | | LAB | | | Plasma | [address];[place] | | | | | | [address] | | | | + + + + + + | MPV | 8.4Comment: Testing | fl | EXTERNAL | | | | performed at [facility];[address] | | LAB | | | | [address];[place] | | | | | | [address] | | | | + + + + + + | Differentia | MANUALComment: Testing | | EXTERNAL | | | l Type | performed at [facility];[address] | | LAB | | | | [address];[place] | | | | | | [address] | | | | + + + + + + | Nucleated | 2 (H)Comment: Testing | /100WBC | EXTERNAL | | | Red Blood | performed at [facility];[address] | | LAB | | | Cells | [address];[place] | | | | | | [address] | | | | + + + + + + | Segmented | 69Comment: Testing | % | EXTERNAL | | | Neutrophils | performed at [facility];[address] | | LAB | | | Manual | [address];[place] | | | | | | [address] | | | | + + + + + + | % Bands | 7Comment: Testing | % | EXTERNAL | | | | performed at [facility];[address] | | LAB | | | | [address];[place] | | | | | | [address] | | | | + + + + + + | % | 4Comment: Testing | % | EXTERNAL | | | Metamyelocy | performed at [facility];[address] | | LAB | | | petros | [address];[place] | | | | | | [address] | | | | + + + + + + | % | 2Comment: Testing | % | EXTERNAL | | | Myelocytes | performed at [facility];[address] | | LAB | | | | [address];[place] | | | | | | [address] | | | | + + + + + + | Lymphocytes | 10Comment: Testing | % | EXTERNAL | | | Manual | performed at [facility];[address] | | LAB | | | | [address];[place] | | | | | | [address] | | | | + + + + + + | Monocytes | 8Comment: Testing | % | EXTERNAL | | | Manual | performed at [facility];[address] | | LAB | | | | [address];[place] | | | | | | [address] | | | | + + + + + + | Absolute | 21.7 (H)Comment: Testing | 1.9 - 7.4 K/uL | EXTERNAL | | | Neutrophils | performed at [facility];[address] | | LAB | | | | [address];[place] | | | | | | [address] | | | | + + + + + + | Bands | 2.2 (H)Comment: Testing | 0 - 0.2 K/uL | EXTERNAL | | | Manual | performed at [facility];[address] | | LAB | | | | [address];[place] | | | | | | [address] | | | | + + + + + + | Absolute | 1.3 (H)Comment: Testing | K/uL | EXTERNAL | | | Metamyelocy | performed at [facility];888 | | LAB | | | petros | [address];[place] | | | | | | [address] | | | | + + + + + + | Absolute | 0.6 (H)Comment: Testing | K/uL | EXTERNAL | | | Myelocytes | performed at [facility];[address] | | LAB | | | | [address];[place] | | | | | | [address] | | | | + + + + + + | Absolute | 3.1Comment: Testing | 1.0 - 3.9 K/uL | EXTERNAL | | | Lymphocytes | performed at [facility];[address] | | LAB | | | | [address];[place] | | | | | | [address] | | | | + + + + + + | Absolute | 2.5 (H)Comment: Testing | 0 - 0.8 K/uL | EXTERNAL | | | Monocytes | performed at [facility];[address] | | LAB | | | | [address];[place] | | | | | | [address] | | | | + + + + + + | RBC | 1+Comment: POLYNORMAL | | EXTERNAL | | | Morphology | PLT MORPHTesting | | LAB | | | | performed at [facility];[address] | | | | | | [address];[place] | | | | | | [address] | | | | | | | [...] [facility];888 | mmol/L | LAB | | | | [address];[place] | | | | | | [address] | | | | + + + [...] [place] | | | | | | [address] | | | | + + + + + + | PH ART | 7.438Comment: Testing | 7.350 - 7.450 | EXTERNAL | | | | performed at [facility];[address] | | LAB | | | | [address];[place] | | | | | | [address] | | | | + + + + + + | PCO2 ART | 31 (L)Comment: Testing | 35 - 45 mmHg | EXTERNAL | | | | performed at [facility];[address] | | LAB | | | | [address];[place] | | | | | | [address] | | | | + + + + + + | PO2 ART | 115 (H)Comment: Testing | 80 - 105 mmHg | EXTERNAL | | | | performed at [facility];[address] | | LAB | | | | [address];[place] | | | | | | [address] | | | | + + + + + + | HCO3 ART | 21 (L)Comment: Testing | 22 - 26 mmol/L | EXTERNAL | | | | performed at [facility];[address] | | LAB | | | | [address];[place] | | | | | | [address] | | | | + + + + + + | POC | 22 (L)Comment: Testing | 23 - 27 mEq/L | EXTERNAL | | | APPEARANCE | performed at [facility];888 | | LAB | | | UA | [address];[place] | | | | | | [address] | | | | + + + + + + | Base | 3 (H)Comment: Testing | 0.0 - 2.0 | EXTERNAL | | | deficit | performed at [facility];888 | mmol/L | LAB | | | | [address];[place] | | | | | | [address] | | | | + + + + + + | O2 SAT ART | 99 (H)Comment: Testing | 95 - 98 % | EXTERNAL | | | | performed at [facility];[address] | | LAB | | | | [address];[place] | | | | | | [address] | | | | + + + + + + | Sodium, POC | 149 (H)Comment: Testing | 135 - 145 mEq/L | EXTERNAL | | | | performed at [facility];[address] | | LAB | | | | [address];[place] | | | | | | [address] | | | | + + + + + + | Potassium, | 4.3Comment: Testing | 3.5 - 5.0 mEq/L | EXTERNAL | | | POC | performed at [facility];[address] | | LAB | | | | [address];[place] | | | | | | [address] | | | | + + + + + + | Ionized | 0.98 (L)Comment: Testing | 1.12 - 1.32 | EXTERNAL | | | Calcium, | performed at [facility];888 | mmol/L | LAB | | | POC | [address];[place] | | | | | | [address] | | | | + + + + + + | Glucose, | 52 (L)Comment: Testing | 65 - 99 mg/dL | EXTERNAL | | | POC | performed at [facility];[address] | | LAB | | | | [address];[place] | | | | | | [address] | | | | + + + + + + | Hematocrit, | 23 (LL)Comment: Testing | 35.0 - 46.0 % | EXTERNAL | | | POC | performed at [facility];888 | | LAB | | | | [address];[place] | | | | | | [address] | | | | + + + + + + | Hemoglobin, | 7.8 (LL)Comment: Testing | 11.6 - 15.5 | EXTERNAL | | | POC | performed at [facility];888 | g/dL | LAB | | | | [address];[place] | | | | | | [address] | | | | + + + + + + | Comment, | Tidal Volume = | | EXTERNAL | | | POC | 460Comment: Peep = 8Resp | | LAB | | | | Rate = 16Testing | | | | | | performed at [facility];[address] | | | | | | [address];[place], [place] | | | | | | [address] | | | | + + + [...] | LAB | | | | [address];[place] | | | | | | [address] | | | | + + + [...] Conversion - 11/24/2018 6:38 AM PDT MACKENZIE [id number] years FemaleCT | | HEAD WO CONTRAST04/22/2014 [...] | LAB | | | | [address];[place] | | | | | | [address] [...] | LAB | | | | [address];[place], [place] | | | | | | [address] | | | | + + + [...] [facility];888 | mmol/L | LAB | | | | [address];[place], [place] | | | | | | [address] | | | | + + + [...] at [facility] | | LAB | | | | [address];[place] | | | | | | [address] | | | | + + + [...] | LAB | | | | [address];[place], [place] | | | | | | [address] | | | | + + + [...] | | | | | | ACUTE MS RESULT READ | | | | | | BACK BY:NAHUN Asher/RUDI AT | | | | | | 2112 SAMTesting | | | | | | performed at [facility];[address] | | | | | | [address];[place], [place] | | | | | | [address] | | | | + + + [...] | | Patient | performed at [facility];[address] | | LAB | | | | [address];[place] | | | | | | [address] | | | | + + + [...] at [facility] | | | | | | [facility];[place], [place] | | | | | | [address] | | | | + + [...] | LAB | | | | [address];[place], [place] | | | | | | [address] | | | | + + + [...] ON | | | | | | 5349[address]Mbmmprh performed | | | | | | at [facility];[address];[place] [address] | | | | + + + + + + | RED CELL | 2.58 (L)Comment: Testing | 3.70 - 5.10 | EXTERNAL | | | COUNT | performed at [facility];888 | M/uL | LAB | | | | [address];[place] | | | | | | [address] | | | | + + + + + + | Hgb | 7.3 (L)Comment: Testing | 11.3 - 15.5 | EXTERNAL | | | | performed at [facility];888 | g/dL | LAB | | | | [address];[place] | | | | | | [address] | | | | + + + + + + | Hematocrit, | 22.1 (L)Comment: Testing | 34.0 - 46.0 % | EXTERNAL | | | POC | performed at [facility];[address] | | LAB | | | | [address];[place] | | | | | | [address] | | | | + + + + + + | MCV | 85.8Comment: Testing | 80.0 - 100.0 fl | EXTERNAL | | | | performed at [facility];[address] | | LAB | | | | [address];[place] | | | | | | [address] | | | | + + + [...] [facility];888 | g/dL | LAB | | | | [address];[place] | | | | | | [address] | | | | + + + + + + | RDW-CV | 43.3Comment: Testing | 37 - 53 fl | EXTERNAL | | | | performed at [facility];[address] | | LAB | | | | [address];[place] | | | | | | [address] | | | | + + + + + + | Platelet | 197Comment: Testing | 150 - 400 K/uL | EXTERNAL | | | Count | performed at [facility];[address] | | LAB | | | Plasma | [address];[place] | | | | | | [address] | | | | + + + + + + | MPV | 7.4Comment: Testing | fl | EXTERNAL | | | | performed at [facility];[address] | | LAB | | | | [address];[place] | | | | | | [address] | | | | + + + + + + | Differentia | MANUALComment: Testing | | EXTERNAL | | | l Type | performed at [facility];[address] | | LAB | | | | [address];[place] | | | | | | [address] | | | | + + + + + + | Nucleated | 6 (H)Comment: Testing | /100WBC | EXTERNAL | | | Red Blood | performed at [facility];[address] | | LAB | | | Cells | [address];[place] | | | | | | [address] | | | | + + + + + + | Segmented | 69Comment: Testing | % | EXTERNAL | | | Neutrophils | performed at [facility];[address] | | LAB | | | Manual | [address];[place] | | | | | | [address] | | | | + + + + + + | % Bands | 7Comment: Testing | % | EXTERNAL | | | | performed at [facility];[address] | | LAB | | | | [address];[place] | | | | | | [address] | | | | + + + + + + | % | 2Comment: Testing | % | EXTERNAL | | | Metamyelocy | performed at [facility];[address] | | LAB | | | petros | [address];[place] | | | | | | [address] | | | | + + + + + + | % | 1Comment: Testing | % | EXTERNAL | | | Myelocytes | performed at [facility];[address] | | LAB | | | | [address];[place] | | | | | | [address] | | | | + + + + + + | Lymphocytes | 14Comment: Testing | % | EXTERNAL | | | Manual | performed at [facility];[address] | | LAB | | | | [address];[place] | | | | | | [address] | | | | + + + + + + | Monocytes | 6Comment: Testing | % | EXTERNAL | | | Manual | performed at [facility] [place];888 | | LAB | | | | [address];[place] | | | | | | [address] | | | | + + + + + + | Eosinophils | 1Comment: Testing | % | EXTERNAL | | | Manual | performed at [facility] [place];888 | | LAB | | | | [address];[place] | | | | | | [address] | | | | + + + + + + | Absolute | 21.3 (H)Comment: Testing | 1.9 - 7.4 K/uL | EXTERNAL | | | Neutrophils | performed at [facility] [place];888 | | LAB | | | | [address];[place] | | | | | | [address] | | | | + + + + + + | Bands | 2.2 (H)Comment: Testing | 0 - 0.2 K/uL | EXTERNAL | | | Manual | performed at [facility] [place];888 | | LAB | | | | [address];[place] | | | | | | [address] | | | | + + + + + + | Absolute | 0.6 (H)Comment: Testing | K/uL | EXTERNAL | | | Metamyelocy | performed at [facility] [place];888 | | LAB | | | petros | [address];[place] | | | | | | [address] | | | | + + + + + + | Absolute | 0.3 (H)Comment: Testing | K/uL | EXTERNAL | | | Myelocytes | performed at [facility] [place];888 | | LAB | | | | [address];[place] | | | | | | [address] | | | | + + + + + + | Absolute | 4.3 (H)Comment: Testing | 1.0 - 3.9 K/uL | EXTERNAL | | | Lymphocytes | performed at [facility] [place];888 | | LAB | | | | [address];[place] | | | | | | [address] | | | | + + + + + + | Absolute | 1.8 (H)Comment: Testing | 0 - 0.8 K/uL | EXTERNAL | | | Monocytes | performed at [facility] [place];888 | | LAB | | | | [address];[place] | | | | | | [address] | | | | + + + + + + | Absolute | 0.3Comment: Testing | 0 - 0.5 K/uL | EXTERNAL | | | Eosinophils | performed at [facility] [place];888 | | LAB | | | | [address];[place] | | | | | | [address] | | | | + + + + + + | Platelet | ADEQUATEComment: Testing | | EXTERNAL | | | Estimate | performed at [facility] [place];888 | | LAB | | | | [address];[place] | | | | | | [address] | | | | + + + + + + | RBC | 1+Comment: GIANT | | EXTERNAL | | | Morphology | PLATELETS1+POLYTesting | | LAB | | | | performed at [facility] [place];888 | | | | | | [address];[place] | | | | | | [address] | | | | | |Testing performed at [facility] [place];[address];[place] [phone] | | | | | | | [...] | LAB | | | | [address];[place], [place] | | | | | | [address] | | | | + + + [...] [place] | | | | | | [address] | | | | + + + [...] [facility] [place];888 | mmol/L | LAB | | | | [address];[place] | | | | | | [address] | | | | + + + + + + | K | 4.0Comment: Testing | 3.5 - 4.9 | EXTERNAL | | | | performed at [facility] [place];888 | mmol/L | LAB | | | | [address];[place] | | | | | | [address] | | | | + + + + + + | Cl | 112 (H)Comment: Testing | 99 - 109 mmol/L | EXTERNAL | | | | performed at [facility] [place];888 | | LAB | | | | [address];[place] | | | | | | [address] | | | | + + + + + + | CO2 | 30Comment: Testing | 23 - 32 mmol/L | EXTERNAL | | | | performed at [facility] [place];888 | | LAB | | | | [address];[place] | | | | | | [address] | | | | + + + + + + | Anion Gap | 12Comment: Testing | 5 - 20 mmol/L | EXTERNAL | | | | performed at [facility] [place];888 | | LAB | | | | [address];[place] | | | | | | [address] | | | | + + + + + + | Glucose, | 67Comment: Testing | 65 - 99 mg/dL | EXTERNAL | | | Fasting | performed at [facility] [place];888 | | LAB | | | | [address];[place] | | | | | | [address] | | | | + + + + + + | BUN | 37 (H)Comment: Testing | 8 - 25 mg/dL | EXTERNAL | | | | performed at [facility] [place];888 | | LAB | | | | [address];[place] | | | | | | [address] | | | | + + + + + + | Creatinine | 1.34 (H)Comment: Testing | 0.50 - 1.00 | EXTERNAL | | | | performed at [facility] [place];888 | mg/dL | LAB | | | | [address];[place] | | | | | | [address] | | | | + + + + + + | BUN/Creatin | 28Comment: Testing | | EXTERNAL | | | ine Ratio | performed at [facility] [place];888 | | LAB | | | | [address];[place] | | | | | | [address] | | | | + + + + + + | Calcium | 7.9 (L)Comment: Testing | 8.5 - 10.2 | EXTERNAL | | | | performed at [facility];888 | mg/dL | LAB | | | | [address];[place] | | | | | | [address] | | | | + + + [...] [facility];[address];[place] [address] | | | | + + + [...] | LAB | | | | [address];[place], [place] | | | | | | [address] | | | | + + [...] [place] | | | | | | [address] | | | | + + + [...] | LAB | | | | [address];[place], [place] | | | | | | [address] | | | | + + + [...] ON | | | | | | [id number] performed | | | | | | at [facility];[address] [place] [address] | | | | | | [address];[place] [address] | | | | + + + + + + | RED CELL | 2.91 (L)Comment: Testing | 3.70 - 5.10 | EXTERNAL | | | COUNT | performed at [facility];888 | M/uL | LAB | | | | [address];[place] | | | | | | [address] | | | | + + + + + + | Hgb | 8.4 (L)Comment: Testing | 11.3 - 15.5 | EXTERNAL | | | | performed at [facility];888 | g/dL | LAB | | | | [address];[place] | | | | | | [address] | | | | + + + + + + | Hematocrit, | 24.8 (L)Comment: Testing | 34.0 - 46.0 % | EXTERNAL | | | POC | performed at [facility];888 | | LAB | | | | [address];[place] | | | | | | [address] | | | | + + + + + + | MCV | 85.1Comment: Testing | 80.0 - 100.0 fl | EXTERNAL | | | | performed at [facility];888 | | LAB | | | | [address];[place] | | | | | | [address] | | | | + + [...] [facility];888 | g/dL | LAB | | | | [address];[place] | | | | | | [address] | | | | + + + + + + | RDW-CV | 42.9Comment: Testing | 37 - 53 fl | EXTERNAL | | | | performed at [facility];888 | | LAB | | | | [address];[place] | | | | | | [address] | | | | + + + + + + | Platelet | 228Comment: Testing | 150 - 400 K/uL | EXTERNAL | | | Count | performed at [facility];888 | | LAB | | | Plasma | [address];[place] | | | | | | [address] | | | | + + + + + + | MPV | 7.2Comment: Testing | fl | EXTERNAL | | | | performed at [facility];888 | | LAB | | | | [address];[place] | | | | | | [address] | | | | + + + + + + | Differentia | MANUALComment: Testing | | EXTERNAL | | | l Type | performed at [facility];888 | | LAB | | | | [address];[place] | | | | | | [address] | | | | + + + + + + | Segmented | 69Comment: Testing | % | EXTERNAL | | | Neutrophils | performed at [facility];888 | | LAB | | | Manual | [address];[place] | | | | | | [address] | | | | + + + + + + | % Bands | 14Comment: Testing | % | EXTERNAL | | | | performed at [facility];888 | | LAB | | | | [address];[place] | | | | | | [address] | | | | + + + + + + | % | 3Comment: Testing | % | EXTERNAL | | | Metamyelocy | performed at [facility];888 | | LAB | | | petros | [address];[place] | | | | | | [address] | | | | + + + + + + | % | 1Comment: Testing | % | EXTERNAL | | | Myelocytes | performed at [facility];888 | | LAB | | | | [address];[place] | | | | | | [address] | | | | + + + + + + | Lymphocytes | 9Comment: Testing | % | EXTERNAL | | | Manual | performed at [facility];888 | | LAB | | | | [address];[place] | | | | | | [address] | | | | + + + + + + | Monocytes | 4Comment: Testing | % | EXTERNAL | | | Manual | performed at [facility];888 | | LAB | | | | [address];[place] | | | | | | [address] | | | | + + + + + + | Absolute | 23.2 (H)Comment: Testing | 1.9 - 7.4 K/uL | EXTERNAL | | | Neutrophils | performed at [facility];888 | | LAB | | | | [address];[place] | | | | | | [address] | | | | + + + + + + | Bands | 4.7 (H)Comment: Testing | 0 - 0.2 K/uL | EXTERNAL | | | Manual | performed at [facility];888 | | LAB | | | | [address];[place] | | | | | | [address] | | | | + + + + + + | Absolute | 1.0 (H)Comment: Testing | K/uL | EXTERNAL | | | Metamyelocy | performed at [facility];888 | | LAB | | | petros | [address];[place] | | | | | | [address] | | | | + + + + + + | Absolute | 0.3 (H)Comment: Testing | K/uL | EXTERNAL | | | Myelocytes | performed at [facility];888 | | LAB | | | | [address];[place] | | | | | | [address] | | | | + + + + + + | Absolute | 3.0Comment: Testing | 1.0 - 3.9 K/uL | EXTERNAL | | | Lymphocytes | performed at [facility];888 | | LAB | | | | [address];[place] | | | | | | [address] | | | | + + + + + + | Absolute | 1.3 (H)Comment: Testing | 0 - 0.8 K/uL | EXTERNAL | | | Monocytes | performed at [facility];888 | | LAB | | | | [address];[place] | | | | | | [address] | | | | + + + + + + | Platelet | ADEQUATEComment: Testing | | EXTERNAL | | | Estimate | performed at [facility];888 | | LAB | | | | [address];[place] | | | | | | [address] | | | | + + + + + + | RBC | 1+Comment: TOXIC | | EXTERNAL | | | Morphology | GRANULATION1+POLYTesting | | LAB | | | | performed at [facility];888 | | | | | | [address];[place] | | | | | | [address] | | | | | |Testing performed at [facility];[address];[place] [address] | | | | | | | | | | + + + + + + | Nucleated | 4 (H)Comment: Testing | /100WBC | EXTERNAL | | | Red Blood | performed at [facility];888 | | LAB | | | Cells | [address];[place] | | | | | | [address] | | | | + + + [...] [facility];888 | mmol/L | LAB | | | | [address];[place], [place] | | | | | | [address] | | | | + + + [...] [facility];888 | | | | | | [address];[place], [place] | | | | | | [address] | | | | + + + [...] [place] | | | | | | [address] | | | | + + + + + + | PH ART | 7.358Comment: Testing | 7.350 - 7.450 | EXTERNAL | | | | performed at [facility];888 | | LAB | | | | [address];[place] | | | | | | [address] | | | | + + + + + + | PCO2 ART | 37Comment: Testing | 35 - 45 mmHg | EXTERNAL | | | | performed at [facility];888 | | LAB | | | | [address];[place] | | | | | | [address] | | | | + + + + + + | PO2 ART | 84Comment: Testing | 80 - 105 mmHg | EXTERNAL | | | | performed at [facility];[address] | | LAB | | | | [address];[place] | | | | | | [address] | | | | + + + + + + | HCO3 ART | 21 (L)Comment: Testing | 22 - 26 mmol/L | EXTERNAL | | | | performed at [facility];888 | | LAB | | | | [address];[place] | | | | | | [address] | | | | + + + + + + | POC | 22 (L)Comment: Testing | 23 - 27 mEq/L | EXTERNAL | | | APPEARANCE | performed at [facility];888 | | LAB | | | UA | [address];[place] | | | | | | [address] | | | | + + + + + + | Base | 5 (H)Comment: Testing | 0.0 - 2.0 | EXTERNAL | | | deficit | performed at [facility];888 | mmol/L | LAB | | | | [address];[place] | | | | | | [address] | | | | + + + + + + | O2 SAT ART | 96Comment: Testing | 95 - 98 % | EXTERNAL | | | | performed at [facility];888 | | LAB | | | | [address];[place] | | | | | | [address] | | | | + + + + + + | Sodium, POC | 150 (H)Comment: Testing | 135 - 145 mEq/L | EXTERNAL | | | | performed at [facility];888 | | LAB | | | | [address];[place] | | | | | | [address] | | | | + + + + + + | Potassium, | 3.7Comment: Testing | 3.5 - 5.0 mEq/L | EXTERNAL | | | POC | performed at [facility];888 | | LAB | | | | [address];[place] | | | | | | [address] | | | | + + + + + + | Ionized | 1.01 (L)Comment: Testing | 1.12 - 1.32 | EXTERNAL | | | Calcium, | performed at [facility];888 | mmol/L | LAB | | | POC | [address];[place] | | | | | | [address] | | | | + + + + + + | Glucose, | 195 (H)Comment: Testing | 65 - 99 mg/dL | EXTERNAL | | | POC | performed at [facility];888 | | LAB | | | | [address];[place] | | | | | | [address] | | | | + + + + + + | Hematocrit, | 23 (LL)Comment: Testing | 35.0 - 46.0 % | EXTERNAL | | | POC | performed at [facility];888 | | LAB | | | | [address];[place] | | | | | | [address] | | | | + + + + + + | Hemoglobin, | 7.8 (LL)Comment: Testing | 11.6 - 15.5 | EXTERNAL | | | POC | performed at [facility];888 | g/dL | LAB | | | | [address];[place], [place] | | | | | | [address] | | | | + + + + + + | Comment, | Tidal Volume = | | EXTERNAL | | | POC | 16Comment: Peep = 8Resp | | LAB | | | | Rate = 46Testing | | | | | | performed at [facility];[address] | | | | | | [address];[place] | | | | | | [address] | | | | + + + [...] | | Patient | performed at [facility];888 | | LAB | | | | [address];[place] | | | | | | [address] | | | | + + + [...] [facility];888 | | | | | | [facility];[place], [place] | | | | | | [address] | | | | + + + [...] | LAB | | | | [address];[place] | | | | | | [address] | | | | + + + [...] ON | | | | | | [id number] performed | | | | | | at [facility];[address];[place] [address] | | | | + + + + + + | RED CELL | 2.99 (L)Comment: Testing | 3.70 - 5.10 | EXTERNAL | | | COUNT | performed at [facility];888 | M/uL | LAB | | | | [address];[place] | | | | | | [address] | | | | + + + + + + | Hgb | 8.3 (L)Comment: Testing | 11.3 - 15.5 | EXTERNAL | | | | performed at [facility];888 | g/dL | LAB | | | | [address];[place] | | | | | | [address] | | | | + + + + + + | Hematocrit, | 26.5 (L)Comment: Testing | 34.0 - 46.0 % | EXTERNAL | | | POC | performed at [facility];888 | | LAB | | | | [address];[place] | | | | | | [address] | | | | + + + + + + | MCV | 88.6Comment: Testing | 80.0 - 100.0 fl | EXTERNAL | | | | performed at [facility];888 | | LAB | | | | [address];[place] | | | | | | [address] | | | | + + + + + + | MCH | 27.8Comment: Testing | 27.0 - 34.0 pg | EXTERNAL | | | | performed at [facility];888 | | LAB | | | | [address];[place] | | | | | | [address] | | | | + + + + + + | MCHC | 31.4 (L)Comment: Testing | 32.0 - 35.5 | EXTERNAL | | | | performed at [facility];888 | g/dL | LAB | | | | [address];[place] | | | | | | [address] | | | | + + + + + + | RDW-CV | 47.3Comment: Testing | 37 - 53 fl | EXTERNAL | | | | performed at [facility];888 | | LAB | | | | [address];[place] | | | | | | [address] | | | | + + + + + + | Platelet | 78 (L)Comment: Testing | 150 - 400 K/uL | EXTERNAL | | | Count | performed at [facility];888 | | LAB | | | Plasma | [address];[place] | | | | | | [address] | | | | + + + + + + | MPV | 8.7Comment: Testing | fl | EXTERNAL | | | | performed at [facility];888 | | LAB | | | | [address];[place] | | | | | | [address] | | | | + + + + + + | Differentia | MANUALComment: Testing | | EXTERNAL | | | l Type | performed at [facility];888 | | LAB | | | | [address];[place] | | | | | | [address] | | | | + + + + + + | Nucleated | 2 (H)Comment: Testing | /100WBC | EXTERNAL | | | Red Blood | performed at [facility];888 | | LAB | | | Cells | [address];[place] | | | | | | [address] | | | | + + + + + + | Segmented | 76Comment: Testing | % | EXTERNAL | | | Neutrophils | performed at [facility];888 | | LAB | | | Manual | [address];[place] | | | | | | [address] | | | | + + + + + + | % Bands | 9Comment: Testing | % | EXTERNAL | | | | performed at [facility];888 | | LAB | | | | [address];[place] | | | | | | [address] | | | | + + + + + + | % | 3Comment: Testing | % | EXTERNAL | | | Metamyelocy | performed at [facility];888 | | LAB | | | petros | [address];[place] | | | | | | [address] | | | | + + + + + + | % | 1Comment: Testing | % | EXTERNAL | | | Myelocytes | performed at [facility];888 | | LAB | | | | [address];[place] | | | | | | [address] | | | | + + + + + + | Lymphocytes | 2Comment: Testing | % | EXTERNAL | | | Manual | performed at [facility];[address] | | LAB | | | | [address];[place] | | | | | | [address] | | | | + + + + + + | Monocytes | 9Comment: Testing | % | EXTERNAL | | | Manual | performed at [facility];888 | | LAB | | | | [address];[place] | | | | | | [address] | | | | + + + + + + | Absolute | 26.7 (H)Comment: Testing | 1.9 - 7.4 K/uL | EXTERNAL | | | Neutrophils | performed at [facility];888 | | LAB | | | | [address];[place] | | | | | | [address] | | | | + + + + + + | Bands | 3.2 (H)Comment: Testing | 0 - 0.2 K/uL | EXTERNAL | | | Manual | performed at [facility];888 | | LAB | | | | [address];[place] | | | | | | [address] | | | | + + + + + + | Absolute | 1.1 (H)Comment: Testing | K/uL | EXTERNAL | | | Metamyelocy | performed at [facility];888 | | LAB | | | petros | [address];[place] | | | | | | [address] | | | | + + + + + + | Absolute | 0.4 (H)Comment: Testing | K/uL | EXTERNAL | | | Myelocytes | performed at [facility];888 | | LAB | | | | [address];[place] | | | | | | [address] | | | | + + + + + + | Absolute | 0.7 (L)Comment: Testing | 1.0 - 3.9 K/uL | EXTERNAL | | | Lymphocytes | performed at [facility];888 | | LAB | | | | [address];[place] | | | | | | [address] | | | | + + + + + + | Absolute | 3.2 (H)Comment: Testing | 0 - 0.8 K/uL | EXTERNAL | | | Monocytes | performed at [facility];888 | | LAB | | | | [address];[place] | | | | | | [address] | | | | + + + + + + | Platelet | DECREASEDComment: | | EXTERNAL | | | Estimate | Testing performed at | | LAB | | | | [facility];[address];[place] [address] | | | | + + + + + + | RBC | 1+Comment: GIANT | | EXTERNAL | | | Morphology | PLATELETS1+POLY1+HYPO1+A | | LAB | | | | NISOTesting performed at | | | | | | [facility];[address];[place] [address] | | | | | |1+ | | | | | |HYPO | | | | | |1+ | | | | | |ANISO | | | | | |Testing performed at [facility];[address] [facility];[place] [address] | | | | | | | | | | + + + + + + | Differentia | SLIDE REFERRED TO | | EXTERNAL | | | l Comments | PATHOLOGIST FOR REVIEW | | LAB | | | | AND COMMENTComment: | | | | | | Testing performed at | | | | | | [facility];[address] [facility] | | | | | | [address];[place] [address] | | | | + + + [...] [facility];888 | mmol/L | LAB | | | | [address];[place] | | | | | | [address] | | | | + + + + + + | K | 3.9Comment: Testing | 3.5 - 4.9 | EXTERNAL | | | | performed at [facility];888 | mmol/L | LAB [...] [place] | | | | | | [address] | | | | + + + + + + | CO2 | 21 (L)Comment: Testing | 23 - 32 mmol/L | EXTERNAL | | | | performed at [facility];[address] | | LAB | | | | [address];[place] | | | | | | [address] | | | | + + + + + + | Anion Gap | 23 (H)Comment: Testing | 5 - 20 mmol/L | EXTERNAL | | | | performed at [facility];[address] | | LAB | | | | [address];[place] | | | | | | [address] | | | | + + + + + + | Glucose, | 192 (H)Comment: Testing | 65 - 99 mg/dL | EXTERNAL | | | Fasting | performed at [facility];[address] | | LAB | | | | [address];[place] | | | | | | [address] | | | | + + + + + + | BUN | 34 (H)Comment: Testing | 8 - 25 mg/dL | EXTERNAL | | | | performed at [facility];[address] | | LAB | | | | [address];[place] | | | | | | [address] | | | | + + + + + + | Creatinine | 1.47 (H)Comment: Testing | 0.50 - 1.00 | EXTERNAL | | | | performed at [facility];888 | mg/dL | LAB | | | | [address];[place] | | | | | | [address] | | | | + + + + + + | BUN/Creatin | 23Comment: Testing | | EXTERNAL | | | ine Ratio | performed at [facility];[address] | | LAB | | | | [address];[place] | | | | | | [address] | | | | + + + + + + | Calcium | 6.7 (L)Comment: Testing | 8.5 - 10.2 | EXTERNAL | | | | performed at [facility];888 | mg/dL | LAB | | | | [address];[place] | | | | | | [address] | | | | + + + [...] [facility];[address];[place] [address] | | | | + + + [...] [facility];888 | mmol/L | LAB | | | | [address];[place], [place] | | | | | | [address] | | | | + + + [...] at [facility] | | LAB | | | | [address];[place] | | | | | | [address] | | | | + + + [...] | LAB | | | | [address] [facility];[place], [place] | | | | | | [address] | | | | + + + + + + | PH ART | 7.140 ()Comment: | 7.350 - 7.450 | EXTERNAL | | | | Testing performed at | | LAB | | | | [facility];[address];[place] [address] | | | | + + + + + + | PCO2 ART | 38Comment: Testing | 35 - 45 mmHg | EXTERNAL | | | | performed at [facility];[address] | | LAB | | | | [address];[place] | | | | | | [address] | | | | + + + + + + | PO2 ART | 104Comment: Testing | 80 - 105 mmHg | EXTERNAL | | | | performed at [facility];[address] | | LAB | | | | [address];[place] | | | | | | [address] | | | | + + + + + + | HCO3 ART | 13 (L)Comment: Testing | 22 - 26 mmol/L | EXTERNAL | | | | performed at [facility];[address] | | LAB | | | | [address];[place] | | | | | | [address] | | | | + + + + + + | POC | 14 (L)Comment: Testing | 23 - 27 mEq/L | EXTERNAL | | | APPEARANCE | performed at [facility];[address] | | LAB | | | UA | [address];[place] | | | | | | [address] | | | | + + + + + + | Base | 16 (H)Comment: Testing | 0.0 - 2.0 | EXTERNAL | | | deficit | performed at [facility];888 | mmol/L | LAB | | | | [address];[place] | | | | | | [address] | | | | + + + + + + | O2 SAT ART | 96Comment: Testing | 95 - 98 % | EXTERNAL | | | | performed at [facility];[address] | | LAB | | | | [address];[place] | | | | | | [address] | | | | + + + + + + | Sodium, POC | 146 (H)Comment: Testing | 135 - 145 mEq/L | EXTERNAL | | | | performed at [facility];[address] | | LAB | | | | [address];[place] | | | | | | [address] | | | | + + + + + + | Potassium, | 5.0Comment: Testing | 3.5 - 5.0 mEq/L | EXTERNAL | | | POC | performed at [facility] [place];[address] | | LAB | | | | [address];[place] | | | | | | [address] | | | | + + + + + + | Ionized | 1.15Comment: Testing | 1.12 - 1.32 | EXTERNAL | | | Calcium, | performed at [facility] [place];888 | mmol/L | LAB | | | POC | [address];[place] | | | | | | [address] | | | | + + + + + + | Glucose, | 265 (H)Comment: Testing | 65 - 99 mg/dL | EXTERNAL | | | POC | performed at [facility] [place];[address] | | LAB | | | | [address];[place] | | | | | | [address] | | | | + + + + + + | Hematocrit, | <10 (LL)Comment: Testing | 35.0 - 46.0 % | EXTERNAL | | | POC | performed at [facility] [place];[address] | | LAB | | | | [address];[place] | | | | | | [address] | | | | + + + + + + | Comment, | Tidal Volume = | | EXTERNAL | | | POC | 16Comment: Peep = 8Resp | | LAB | | | | Rate = 46Testing | | | | | | performed at [facility] [place];[address] | | | | | | [address];[place] | | | | | | [address] | | | | + + + [...] [place] | | | | | | [address] | | | | + + + [...] | LAB | | | | [address];[place], [place] | | | | | | [address] | | | | + + + [...] [place] | | | | | | [address] | | | | + + + [...] | LAB | | | | [address];[place], [place] | | | | | | [address] | | | | + + + [...] at [facility] [place] [place];[address] [place] [address] | | | | | | [facility];[place] [address] | | | | + + + [...] | | Patient | performed at [facility];[address] | | LAB | | | | [address];[place] | | | | | | [address] | | | | + + [...] at [facility] [place] | | | | | | [address];[place], [place] | | | | | | [address] | | | | + + + [...] | LAB | | | | [address];[place] | | | | | | [address] | | | | + + + + + + | RED CELL | 3.56 (L)Comment: Testing | 3.70 - 5.10 | EXTERNAL | | | COUNT | performed at [facility] [place];888 | M/uL | LAB | | | | [address];[place] | | | | | | [address] | | | | + + + + + + | Hgb | 8.7 (L)Comment: Testing | 11.3 - 15.5 | EXTERNAL | | | | performed at [facility] [place] [place];888 | g/dL | LAB | | | | [address];[place] | | | | | | [address] | | | | + + + + + + | Hematocrit, | 29.0 (L)Comment: Testing | 34.0 - 46.0 % | EXTERNAL | | | POC | performed at [facility] [place];[address] | | LAB | | | | [address];[place] | | | | | | [address] | | | | + + + + + + | MCV | 81.3Comment: Testing | 80.0 - 100.0 fl | EXTERNAL | | | | performed at [facility] [place];888 | | LAB | | | | [address];[place] | | | | | | [address] | | | | + + + + + + | MCH | 24.4 (L)Comment: Testing | 27.0 - 34.0 pg | EXTERNAL | | | | performed at [facility] [place];[address] | | LAB | | | | [address];[place] | | | | | | [address] | | | | + + + + + + | MCHC | 30.0 (L)Comment: Testing | 32.0 - 35.5 | EXTERNAL | | | | performed at [facility] [place];888 | g/dL | LAB | | | | [address];[place] | | | | | | [address] | | | | + + + + + + | RDW-CV | 63.9 (H)Comment: Testing | 37 - 53 fl | EXTERNAL | | | | performed at [facility] [place];[address] | | LAB | | | | [address];[place] | | | | | | [address] | | | | + + + + + + | Platelet | 330Comment: Testing | 150 - 400 K/uL | EXTERNAL | | | Count | performed at [facility] [place];[address] | | LAB | | | Plasma | [address];[place] | | | | | | [address] | | | | + + + + + + | MPV | 8.6Comment: Testing | fl | EXTERNAL | | | | performed at [facility] [place];[address] | | LAB | | | | [address];[place] | | | | | | [address] | | | | + + + + + + | Differentia | MANUALComment: Testing | | EXTERNAL | | | l Type | performed at [facility] [place];[address] | | LAB | | | | [address];[place] | | | | | | [address] | | | | + + + + + + | Segmented | 77Comment: Testing | % | EXTERNAL | | | Neutrophils | performed at [facility] [place] [place];[address] | | LAB | | | Manual | [address];[place] | | | | | | [address] | | | | + + + + + + | % Bands | 4Comment: Testing | % | EXTERNAL | | | | performed at [facility];[address] | | LAB | | | | [address];[place] | | | | | | [address] | | | | + + + + + + | % | 3Comment: Testing | % | EXTERNAL | | | Metamyelocy | performed at [facility];[address] | | LAB | | | petros | [address];[place] | | | | | | [address] | | | | + + + + + + | % | 1Comment: Testing | % | EXTERNAL | | | Myelocytes | performed at [facility];[address] | | LAB | | | | [address];[place] | | | | | | [address] | | | | + + + + + + | Lymphocytes | 10Comment: Testing | % | EXTERNAL | | | Manual | performed at [facility];[address] | | LAB | | | | [address];[place] | | | | | | [address] | | | | + + + + + + | Monocytes | 5Comment: Testing | % | EXTERNAL | | | Manual | performed at [facility];[address] | | LAB | | | | [address];[place] | | | | | | [address] | | | | + + + + + + | Absolute | 17.8 (H)Comment: Testing | 1.9 - 7.4 K/uL | EXTERNAL | | | Neutrophils | performed at [facility];888 | | LAB | | | | [address];[place] | | | | | | [address] | | | | + + + + + + | Bands | 0.9 (H)Comment: Testing | 0 - 0.2 K/uL | EXTERNAL | | | Manual | performed at [facility];[address] | | LAB | | | | [address];[place] | | | | | | [address] | | | | + + + + + + | Absolute | 0.7 (H)Comment: Testing | K/uL | EXTERNAL | | | Metamyelocy | performed at [facility];[address] | | LAB | | | petros | [address];[place] | | | | | | [address] | | | | + + + + + + | Absolute | 0.2 (H)Comment: Testing | K/uL | EXTERNAL | | | Myelocytes | performed at [facility];[address] | | LAB | | | | [address];[place] | | | | | | [address] | | | | + + + + + + | Absolute | 2.3Comment: Testing | 1.0 - 3.9 K/uL | EXTERNAL | | | Lymphocytes | performed at [facility];[address] | | LAB | | | | [address];[place] | | | | | | [address] | | | | + + + + + + | Absolute | 1.2 (H)Comment: Testing | 0 - 0.8 K/uL | EXTERNAL | | | Monocytes | performed at [facility];[address] | | LAB | | | | [facility];[place] | | | | | | [address] | | | | + + + + + + | RBC | 2+Comment: | | EXTERNAL | | | Morphology | HYPO3+ANISO1+POIK1+TARGE | | LAB | | | | TNORMAL PLT MORPHTesting | | | | | | performed at [facility];[address] | | | | | | [facility];[place] | | | | | | [address] | | | | | |POIK | | | | | |1+ | | | | | |TARGET | | | | | |NORMAL PLT MORPH | | | | | |Testing performed at [facility];[address] [facility];[place] [address] | | | | | | | [...] Gertrude, | | | | | | [place] [address] | | | | + + + [...] EXTERNAL | | | | performed at [facility], [address] | | LAB | | | | [address], | | | | | | [place] [address] | | | | + + + [...] | LAB | | | | [address];[place], [place] | | | | | | [address] | | | | + + [...] | | | | | [place] [address] | | | | + + [...] | | | | | [place] [address] | | | | + + + + + + | Albumin | 2.4 (L)Comment: Testing | 3.6 - 5.0 g/dL | EXTERNAL | | | | performed at [facility], [address] | | LAB | | | | [address], | | | | | | [place] [address] | | | | + + + + + + | Bilirubin | 0.5Comment: Testing | 0.1 - 1.5 mg/dL | EXTERNAL | | | Total | performed at [facility], [address] | | LAB | | | | [address], | | | | | | [place] [address] | | | | + + + + + + | Bilirubin | 0.1Comment: Testing | 0.0 - 0.3 mg/dL | EXTERNAL | | | Direct | performed at [facility], [address] | | LAB | | | | [address], | | | | | | [place] [address] | | | | + + + + + + | ALP, | 131 (H)Comment: Testing | 35 - 115 U/L | EXTERNAL | | | External | performed at [facility], [address] | | LAB | | | | [address], | | | | | | [place] [address] | | | | + + + + + + | AST | 20Comment: Testing | 10 - 45 U/L | EXTERNAL | | | | performed at [facility], [address] | | LAB | | | | [address], | | | | | | [place] [address] | | | | + + + + + + | ALT | 11Comment: Testing | 10 - 65 U/L | EXTERNAL | | | | performed at [facility], [address] | | LAB | | | | [address], | | | | | | [place] [address] | | | | + + + [...] | | | | | [place] [address] | | | | + + + + + + | Triglycerid | 151 (H)Comment: Testing | mg/dL | EXTERNAL | | | es | performed at [facility], [address] | | LAB | | | | [address], | | | | | | [place] [address] | | | | + + + + + + | HDL | 58Comment: Testing | mg/dL | EXTERNAL | | | | performed at [facility], [address] | | LAB | | | | [address], | | | | | | [place] [address] | | | | + + + + + + | LDL | 125 (H)Comment: Testing | mg/dL | EXTERNAL | | | Cholesterol | performed at [facility], [address] | | LAB | | | , | [address], | | | | | Calculated, | [place] [address] | | | | | External | [...] | | | | | [place] [address] | | | | + + + + + + | K | 4.0Comment: Testing | 3.5 - 4.9 | EXTERNAL | | | | performed at [facility], [address] | mmol/L | LAB | | | | [address], | | | | | | [place] [address] | | | | + + + + + + | Cl | 107Comment: Testing | 99 - 109 mmol/L | EXTERNAL | | | | performed at [facility], [address] | | LAB | | | | [address], | | | | | | [place] [address] | | | | + + + + + + | CO2 | 29Comment: Testing | 23 - 32 mmol/L | EXTERNAL | | | | performed at [facility], [address] | | LAB | | | | [address], | | | | | | [place] [address] | | | | + + + + + + | Anion Gap | 13Comment: Testing | 5 - 20 mmol/L | EXTERNAL | | | | performed at [facility], [address] | | LAB | | | | [address], | | | | | | [place] [address] | | | | + + + + + + | Glucose, | 123 (H)Comment: Testing | 65 - 99 mg/dL | EXTERNAL | | | Fasting | performed at [facility], [address] | | LAB | | | | [address], | | | | | | [place] [address] | | | | + + + + + + | BUN | 30 (H)Comment: Testing | 8 - 25 mg/dL | EXTERNAL | | | | performed at [facility], [address] | | LAB | | | | [address], | | | | | | [place] [address] | | | | + + + + + + | Creatinine | 0.64Comment: Testing | 0.50 - 1.00 | EXTERNAL | | | | performed at [facility], [address] | mg/dL | LAB | | | | [address], | | | | | | [place] [address] | | | | + + + + + + | BUN/Creatin | 47Comment: Testing | | EXTERNAL | | | ine Ratio | performed at [facility], [address] | | LAB | | | | [address], | | | | | | [place] [address] | | | | + + + + + + | Calcium | 8.8Comment: Testing | 8.5 - 10.2 | EXTERNAL | | | | performed at [facility], [address] | mg/dL | LAB | | | | [address], | | | | | | [place] [address] | | | | + + + [...] | | | | | | at [facility], [address] | | | | | | [address], | | | | | | [place] [address] | | | | + + [...] AC | | | Testing performed at [facility];[address] | | | [facility];[place] [address] CULTURE | | | NO GROWTH | | | Testing performed at [facility], [address] [facility], [place], [place] | | | [address] | | + + + + +---------+ [...] AC | | | Testing performed at [facility];[address] | | | [facility];[place] [address] CULTURE | | | NO GROWTH | | | Testing performed at [facility], [address] [place], [place] | | | [address] | | + + + + +---------+ [...] [facility];888 | mmol/L | LAB | | | | [address];[place], [place] | | | | | | [address] | | | | + + + [...] [place] | | | | | | [address] | | | | + + + [...] [place] | | | | | | [address] | | | | + + + + + + | RED CELL | 3.11 (L)Comment: Testing | 3.70 - 5.10 | EXTERNAL | | | COUNT | performed at [facility];888 | M/uL | LAB | | | | [address];[place] | | | | | | [address] | | | | + + + + + + | Hgb | 7.6 (L)Comment: Testing | 11.3 - 15.5 | EXTERNAL | | | | performed at [facility];888 | g/dL | LAB | | | | [address];[place] | | | | | | [address] | | | | + + + + + + | Hematocrit, | 25.7 (L)Comment: Testing | 34.0 - 46.0 % | EXTERNAL | | | POC | performed at [facility];[address] | | LAB | | | | [address];[place] | | | | | | [address] | | | | + + + + + + | MCV | 82.8Comment: Testing | 80.0 - 100.0 fl | EXTERNAL | | | | performed at [facility];[address] | | LAB | | | | [address];[place] | | | | | | [address] | | | | + + + + + + | MCH | 24.6 (L)Comment: Testing | 27.0 - 34.0 pg | EXTERNAL | | | | performed at [facility];[address] | | LAB | | | | [address];[place] | | | | | | [address] | | | | + + + + + + | MCHC | 29.7 (L)Comment: Testing | 32.0 - 35.5 | EXTERNAL | | | | performed at [facility];888 | g/dL | LAB | | | | [address];[place] | | | | | | [address] | | | | + + + + + + | RDW-CV | 66.5 (H)Comment: Testing | 37 - 53 fl | EXTERNAL | | | | performed at [facility];[address] | | LAB | | | | [address];[place] | | | | | | [address] | | | | + + + + + + | Platelet | 318Comment: Testing | 150 - 400 K/uL | EXTERNAL | | | Count | performed [facility] [place] | | | | | | [address] | | | | + + + + + + | Differentia | MANUALComment: Testing | | EXTERNAL | | | l Type | performed at [facility];[address] | | LAB | | | | [address];[place] | | | | | | [address] | | | | + + + + + + | Nucleated | 1 (H)Comment: Testing | /100WBC | EXTERNAL | | | Red Blood | performed at [facility];[address] | | LAB | | | Cells | [address];[place] | | | | | | [address] | | | | + + + + + + | Segmented | 70Comment: Testing | % | EXTERNAL | | | Neutrophils | performed at [facility];[address] | | LAB | | | Manual | [address];[place] | | | | | | [address] | | | | + + + + + + | % Bands | 4Comment: Testing | % | EXTERNAL | | | | performed at [facility];[address] | | LAB | | | | [address];[place] | | | | | | [address] | | | | + + + + + + | % | 2Comment: Testing | % | EXTERNAL | | | Metamyelocy | performed at [facility];[address] | | LAB | | | petros | [address];[place] | | | | | | [address] | | | | + + + + + + | % | 1Comment: Testing | % | EXTERNAL | | | Myelocytes | performed at [facility];[address] | | LAB | | | | [address];[place] | | | | | | [address] | | | | + + + + + + | Lymphocytes | 14Comment: Testing | % | EXTERNAL | | | Manual | performed at [facility];[address] | | LAB | | | | [address];[place] | | | | | | [address] | | | | + + + + + + | Monocytes | 9Comment: Testing | % | EXTERNAL | | | Manual | performed at [facility];[address] | | LAB | | | | [address];[place] | | | | | | [address] | | | | + + + + + + | Absolute | 15.0 (H)Comment: Testing | 1.9 - 7.4 K/uL | EXTERNAL | | | Neutrophils | performed at [facility];888 | | LAB | | | | [address];[place] | | | | | | [address] | | | | + + + + + + | Bands | 0.9 (H)Comment: Testing | 0 - 0.2 K/uL | EXTERNAL | | | Manual | performed at [facility];888 | | LAB | | | | [address];[place] | | | | | | [address] | | | | + + + + + + | Absolute | 0.4 (H)Comment: Testing | K/uL | EXTERNAL | | | Metamyelocy | performed at [facility];888 | | LAB | | | petros | [address];[place] | | | | | | [address] | | | | + + + + + + | Absolute | 0.2 (H)Comment: Testing | K/uL | EXTERNAL | | | Myelocytes | performed at [facility];[address] | | LAB | | | | [address];[place] | | | | | | [address] | | | | + + + + + + | Absolute | 3.0Comment: Testing | 1.0 - 3.9 K/uL | EXTERNAL | | | Lymphocytes | performed at [facility];888 | | LAB | | | | [address];[place] | | | | | | [address] | | | | + + + + + + | Absolute | 1.9 (H)Comment: Testing | 0 - 0.8 K/uL | EXTERNAL | | | Monocytes | performed at [facility];[address] | | LAB | | | | [address];[place] | | | | | | [address] | | | | + + + + + + | Platelet | ADEQUATEComment: Testing | | EXTERNAL | | | Estimate | performed at [facility];[address] | | LAB | | | | [address];[place] | | | | | | [address] | | | | + + + + + + | RBC | 3+Comment: | | EXTERNAL | | | Morphology | ANISO1+HYPO1+TARGETNORMA | | LAB | | | | L PLT MORPHTesting | | | | | | performed at [facility];[address] | | | | | | [address];[place], [place] | | | | | | [address] | | | | | |TARGET | | | | | |NORMAL PLT MORPH | | | | | |Testing performed at [facility];[address];[place] [address] | | | | | | | [...] | LAB | | | | [address];[place] | | | | | | [address] | | | | + + + [...] | LAB | | | | [address];[place], [place] | | | | | | [address] | | | | + + + [...] [facility];888 | mmol/L | LAB | | | | [address];[place] | | | | | | [address] | | | | + + + + + + | K | 4.2Comment: Testing | 3.5 - 4.9 | EXTERNAL | | | | performed at [facility];888 | mmol/L | LAB | | | | [address];[place] | | | | | | [address] | | | | + + + + + + | Cl | 110 (H)Comment: Testing | 99 - 109 mmol/L | EXTERNAL | | | | performed at [facility];[address] | | LAB | | | | [address];[place] | | | | | | [address] | | | | + + + + + + | CO2 | 35 (H)Comment: Testing | 23 - 32 mmol/L | EXTERNAL | | | | performed at [facility];[address] | | LAB | | | | [address];[place] | | | | | | [address] | | | | + + + + + + | Anion Gap | 8Comment: Testing | 5 - 20 mmol/L | EXTERNAL | | | | performed at [facility];[address] | | LAB | | | | [address];[place] | | | | | | [address] | | | | + + + + + + | Glucose, | 120 (H)Comment: Testing | 65 - 99 mg/dL | EXTERNAL | | | Fasting | performed at [facility];[address] | | LAB | | | | [address];[place] | | | | | | [address] | | | | + + + + + + | BUN | 30 (H)Comment: Testing | 8 - 25 mg/dL | EXTERNAL | | | | performed at [facility];[address] | | LAB | | | | [address];[place] | | | | | | [address] | | | | + + + + + + | Creatinine | 0.87Comment: Testing | 0.50 - 1.00 | EXTERNAL | | | | performed at [facility];888 | mg/dL | LAB | | | | [address];[place] | | | | | | [address] | | | | + + + + + + | BUN/Creatin | 35Comment: Testing | | EXTERNAL | | | ine Ratio | performed at [facility];[address] | | LAB | | | | [address];[place] | | | | | | [address] | | | | + + + + + + | Calcium | 8.0 (L)Comment: Testing | 8.5 - 10.2 | EXTERNAL | | | | performed at [facility];888 | mg/dL | LAB | | | | [address];[place] | | | | | | [address] | | | | + + [...] [facility];[address] [facility] | | | | | | Blvd;[place] [address] | | | | + + + [...] [facility];888 | mmol/L | LAB | | | | [address];[place] | | | | | | [address] | | | | + + + [...] | | | Random | performed at [facility] | | LAB | | | | [address];[place], [place] | | | | | | [address] | | | | + + + [...] | LAB | | | | [address];[place], [place] | | | | | | [address] | | | | + + + [...] | | Patient | performed at [facility];[address] | | LAB | | | | [address];[place], [place] | | | | | | [address] [...] | LAB | | | | [address];[place] | | | | | | [address] | | | | + + + [...] Roper Conversion - 11/24/2018 6:38 AM AMARI [id number] yearsXR CHEST 1 | | VIEW04/21/2014 5:52 [...] [facility];[address] | | | | | | [facility];[place], [place] | | | | | | [address] | | | | + + + [...] EXTERNAL | | | | performed at [facility], [address] | | LAB | | | | [address], | | | | | | [place] [address] | | | | + + +---- + + + | RED CELL | 3.26 (L)Comment: Testing | 3.7 0 - 5.10 | EXTERNAL | | | COUNT | performed at [facility], [address] | M/u L | LAB | | | | [address], | | | | | | [place] [address] | | | | + + +---- + + + | Hgb | 8.2 (L)Comment: Testing | 11. 3 - 15.5 | EXTERNAL | | | | performed at [facility], [address] | g/d L | LAB | | | | [address], | | | | | | [place] [address] | | | | + + +---- + + + | Hematocrit, | 27.1 (L)Comment: Testing | 34. 0 - 46.0 % | EXTERNAL | | | POC | performed at [facility], [address] | | LAB | | | | [address], | | | | | | [place] [address] | | | | + + +---- + + + | MCV | 83.1Comment: Testing | 80. 0 - 100.0 fl | EXTERNAL | | | | performed at [facility], [address] | | LAB | | | | [address], | | | | | | [place] [address] | | | | + + +---- + + + | MCH | 25.0 (L)Comment: Testing | 27. 0 - 34.0 pg | EXTERNAL | | | | performed at [facility], [address] | | LAB | | | | [address], | | | | | | [place] [address] | | | | + + +---- + + + | MCHC | 30.1 (L)Comment: Testing | 32. 0 - 35.5 | EXTERNAL | | | | performed at [facility], [address] | g/d L | LAB | | | | [address], | | | | | | [place] [address] | | | | + + +---- + + + | RDW-CV | 67.4 (H)Comment: Testing | 37 - 53 fl | EXTERNAL | | | | performed at [facility], [address] | | LAB | | | | [address], | | | | | | [place] [address] | | | | + + +---- + + + | Platelet | 340Comment: Testing | 150 - 400 K/uL | EXTERNAL | | | Count | performed at [facility], [address] | | LAB | | | Plasma | [address], | | | | | | [place] [address] | | | | + + +---- + + + | MPV | 9.2Comment: Testing | fl | EXTERNAL | | | | performed at [facility], [address] | | LAB | | | | [address], | | | | | | [place] [address] | | | | + + +---- + + + | Differentia | MANUALComment: Testing | | EXTERNAL | | | l Type | performed at [facility], [address] | | LAB | | | | [address], | | | | | | [place] [address] | | | | + + +---- + + + | Nucleated | 1 (H)Comment: Testing | /10 0WBC | EXTERNAL | | | Red Blood | performed at [facility], [address] | | LAB | | | Cells | [address], | | | | | | [place] [address] | | | | + + +---- + + + | Segmented | 80Comment: Testing | % | EXTERNAL | | | Neutrophils | performed at [facility], [address] | | LAB | | | Manual | [address], | | | | | | [place] [address] | | | | + + +---- + + + | % | 2Comment: Testing | % | EXTERNAL | | | Metamyelocy | performed at [facility], [address] | | LAB | | | petros | [address], | | | | | | [place] [address] | | | | + + +---- + + + | % | 1Comment: Testing | % | EXTERNAL | | | Myelocytes | performed at [facility], [address] | | LAB | | | | [address], | | | | | | [place] [address] | | | | + + +---- + + + | Lymphocytes | 7Comment: Testing | % | EXTERNAL | | | Manual | performed at [facility], [address] | | LAB | | | | [address], | | | | | | [place] [address] | | | | + + +---- + + + | Monocytes | 10Comment: Testing | % | EXTERNAL | | | Manual | performed at [facility], [address] | | LAB | | | | [address], | | | | | | [place] [address] | | | | + + +---- + + + | Absolute | 15.4 (H)Comment: Testing | 1.9 - 7.4 K/uL | EXTERNAL | | | Neutrophils | performed at [facility], [address] | | LAB | | | | [address], | | | | | | [place] [address] | | | | + + +---- + + + | Absolute | 0.4 (H)Comment: Testing | K/u L | EXTERNAL | | | Metamyelocy | performed at [facility], [address] | | LAB | | | petros | [address], | | | | | | [place] [address] | | | | + + +---- + + + | Absolute | 0.2 (H)Comment: Testing | K/u L | EXTERNAL | | | Myelocytes | performed at [facility], [address] | | LAB | | | | [address], | | | | | | [place] [address] | | | | + + +---- + + + | Absolute | 1.3Comment: Testing | 1.0 - 3.9 K/uL | EXTERNAL | | | Lymphocytes | performed at [facility], [address] | | LAB | | | | [address], | | | | | | [place] [address] | | | | + + +---- + + + | Absolute | 1.9 (H)Comment: Testing | 0 - 0.8 K/uL | EXTERNAL | | | Monocytes | performed at [facility], [address] | | LAB | | | | [facility], | | | | | | [place] [address] | | | | + + +---- + + + | RBC | 3+Comment: | | EXTERNAL | | | Morphology | ANISO1+TARGETNORMAL PLT | | LAB | | | | MORPHTesting performed | | | | | | at [facility], [address] | | | | | | [facility], | | | | | | [place] [address] | | | | | |Testing performed at [facility], [address] [facility], [place] [address] | | | | | | | [...] EXTERNAL | | | | performed at [facility], [address] | | LAB | | | | [address], | | | | | | [place] [address] | | | | + + + [...] EXTERNAL | | | | performed at [facility], [address] | | LAB | | | | [address], | | | | | | [place] [address] | | | | + + + [...] | | | | | [place] [address] | | | | + + + + + + | K | 4.1Comment: Testing | 3.5 - 4.9 | EXTERNAL | | | | performed at [facility], [address] | mmol/L | LAB | | | | [address], | | | | | | [place] [address] | | | | + + + + + + | Cl | 110 (H)Comment: Testing | 99 - 109 mmol/L | EXTERNAL | | | | performed at [facility], [address] | | LAB | | | | [address], | | | | | | [place] [address] | | | | + + + + + + | CO2 | 34 (H)Comment: Testing | 23 - 32 mmol/L | EXTERNAL | | | | performed at [facility], [address] | | LAB | | | | [address], | | | | | | [place] [address] | | | | + + + [...] | | | | | [place] [address] | | | | + + + + + + | BUN | 29 (H)Comment: Testing | 8 - 25 mg/dL | EXTERNAL | | | | performed at [facility], [address] | | LAB | | | | [address], | | | | | | [place] [address] | | | | + + + + + + | Creatinine | 0.61Comment: Testing | 0.50 - 1.00 | EXTERNAL | | | | performed at [facility], [address] | mg/dL | LAB | | | | [address], | | | | | | [place] [address] | | | | + + + + + + | BUN/Creatin | 48Comment: Testing | | EXTERNAL | | | ine Ratio | performed at [facility], [address] | | LAB | | | | [address], | | | | | | [place] [address] | | | | + + + + + + | Calcium | 8.3 (L)Comment: Testing | 8.5 - 10.2 | EXTERNAL | | | | performed at [facility], [address] | mg/dL | LAB | | | | [address], | | | | | | [place] [address] | | | | + + [...] | | | | | | at [facility], [address] | | | | | | [address], | | | | | | [place] [address] | | | | + + + [...] | | Patient | performed at [facility];[address] | | LAB | | | | [address];[place], [place] | | | | | | [address] | | | | + + + [...] [facility];[address] | mmol/L | LAB | | | | [address];[place], [place] | | | | | | [address] | | | | + + + [...] | LAB | | | | [address];[place], [place] | | | | | | [address] | | | | + + + [...] [facility];[address] | | | | | | [address];[place] | | | | | | [address] | | | | + + + [...] [facility];[address] | | | | | | [address];[place] | | | | | | [address] | | | | + + + [...] [facility];[address] | mmol/L | LAB | | | | [address];[place] | | | | | | [address] | | | | + + + [...] [place] | | | | | | [address] | | | | + + + [...] | LAB | | | | [address];[place], [place] | | | | | | [address] | | | | + + + [...] [facility];[address] | mmol/L | LAB | | | | [address];[place] | | | | | | [address] | | | | + + + [...] | | LAB | | | | [facility], [place] | | | | | | [address] | | | | + + + [...] | LAB | | | | [address];[place] | | | | | | [address] | | | | + + + [...] | LAB | | | | [address];[place] | | | | | | [address] | | | | + + + [...] | 1.05 D-E Excursion: 1.76 cm E-F Grand: 0.10 m/s EPSS: 0.24 | | | [...] TR Vmax: 1.63 m/s | | | Lead Application Architect: CORDELIA Authenticated by: JOSE KO MD Report [...] BPMR-R: 756.65 msLAAs | | A4C: 23.48 [id number] A-L A4C: 64.39 mlLAESV MOD A4C: 63.04 mlLALs A4C: 7.27 cmAo | | Diam: 3.18 cmAV Cusp: 1.94 cmLA Diam: 3.37 cmLA/Ao: 1.05D-E Excursion: 1.76 | | cmE-F Grand: 0.10 m/sEPSS: 0.24 cmHR: 76.38 BPMAV maxP.32 mmHgAV meanPG: | | 3.53 mmHgAV Vmax: 1.25 m/Christine Vmean: 0.89 m/Christine VTI: 20.35 cmAVA Vmax: 2.34 | | cm2AVA (VTI): 2.64 [id number] Dopp: 2.21 l/[id number] Dopp: 4.15 l/minHR: 77.06 | | BPMLVOT [...] maxP.67 mmHgTR Vmax: 1.63 m/s | | Lead Application Architect: Rileyhenticated by: Stevan ASKEW Date/Time: 04-20-2014 18:02:29 [...] | |D-E Excursion: 1.76 cm | |E-F Grand: 0.10 m/s | |EPSS: 0.24 cm | [...] |TR Vmax: 1.63 m/s | | | |Lead Application Architect: GD | |Authenticated by: JOSE KO MD [...] | LAB | | | | BY Robot App StoreREAD BACK RESULTS | | | | | | VERIFIEDTesting | | | | | | performed at [facility];[address] | | | | | | [address];[place], [place] | | | | | | [address] | | | | + + + [...] | | | | | [place] [address] | | | | + + + [...] EXTERNAL | | | | performed at [facility], [address] | | LAB | | | | [address], | | | | | | [place] [address] | | | | + + + [...] at [facility] | | LAB | | | | [address];[place] | | | | | | [address] | | | | + + + [...] | LAB | | | | [address];[place] | | | | | | [address] | | | | + + + [...] | | | | | [place] [address] | | | | + + +---- + + + | RED CELL | 3.57 (L)Comment: Testing | 3.7 0 - 5.10 | EXTERNAL | | | COUNT | performed at [facility], [address] | [address]/u L | LAB | | | | [address], | | | | | | [place] [address] | | | | + + +---- + + + | Hgb | 8.9 (L)Comment: Testing | 11. 3 - 15.5 | EXTERNAL | | | | performed at [facility], [address] | g/d L | LAB | | | | [address], | | | | | | [place] [address] | | | | + + +---- + + + | Hematocrit, | 29.8 (L)Comment: Testing | 34. 0 - 46.0 % | EXTERNAL | | | POC | performed at [facility], [address] | | LAB | | | | [address], | | | | | | [place] [address] | | | | + + +---- + + + | MCV | 83.5Comment: Testing | 80. 0 - 100.0 fl | EXTERNAL | | | | performed at [facility], [address] | | LAB | | | | [address], | | | | | | [place] [address] | | | | + + +---- + + + | MCH | 24.9 (L)Comment: Testing | 27. 0 - 34.0 pg | EXTERNAL | | | | performed at [facility], [address] | | LAB | | | | [address], | | | | | | [place] [address] | | | | + + +---- + + + | MCHC | 29.9 (L)Comment: Testing | 32. 0 - 35.5 | EXTERNAL | | | | performed at [facility], [address] | g/d L | LAB | | | | [address], | | | | | | [place] [address] | | | | + + +---- + + + | RDW-CV | 67.8 (H)Comment: Testing | 37 - 53 fl | EXTERNAL | | | | performed at [facility], [address] | | LAB | | | | [address], | | | | | | [place] [address] | | | | + + +---- + + + | Platelet | 373Comment: Testing | 150 - 400 K/uL | EXTERNAL | | | Count | performed at [facility], [address] | | LAB | | | Plasma | [address], | | | | | | [place] [address] | | | | + + +---- + + + | MPV | 9.3Comment: Testing | fl | EXTERNAL | | | | performed at [facility], [address] | | LAB | | | | [address], | | | | | | [place] [address] | | | | + + +---- + + + | Differentia | MANUALComment: Testing | | EXTERNAL | | | l Type | performed at [facility], [address] | | LAB | | | | [address], | | | | | | [place] [address] | | | | + + +---- + + + | Nucleated | 3 (H)Comment: Testing | /10 0WBC | EXTERNAL | | | Red Blood | performed at [facility], [address] | | LAB | | | Cells | [address], | | | | | | [place] [address] | | | | + + +---- + + + | Segmented | 71Comment: Testing | % | EXTERNAL | | | Neutrophils | performed at [facility], [address] | | LAB | | | Manual | [address], | | | | | | [place] [address] | | | | + + +---- + + + | % Bands | 2Comment: Testing | % | EXTERNAL | | | | performed at [facility], [address] | | LAB | | | | [address], | | | | | | [place] [address] | | | | + + +---- + + + | Lymphocytes | 17Comment: Testing | % | EXTERNAL | | | Manual | performed at [facility], [address] | | LAB | | | | [address], | | | | | | [place] [address] | | | | + + +---- + + + | Monocytes | 9Comment: Testing | % | EXTERNAL | | | Manual | performed at [facility], [address] | | LAB | | | | [address], | | | | | | [place] [address] | | | | + + +---- + + + | Eosinophils | 1Comment: Testing | % | EXTERNAL | | | Manual | performed at [facility], [address] | | LAB | | | | [address], | | | | | | [place] [address] | | | | + + +---- + + + | Absolute | 15.2 (H)Comment: Testing | 1.9 - 7.4 K/uL | EXTERNAL | | | Neutrophils | performed at [facility], [address] | | LAB | | | | [address], | | | | | | [place] [address] | | | | + + +---- + + + | Bands | 0.4 (H)Comment: Testing | 0 - 0.2 K/uL | EXTERNAL | | | Manual | performed at [facility], [address] | | LAB | | | | [address], | | | | | | [place] [address] | | | | + + +---- + + + | Absolute | 3.6Comment: Testing | 1.0 - 3.9 K/uL | EXTERNAL | | | Lymphocytes | performed at [facility], [address] | | LAB | | | | [address], | | | | | | [place] [address] | | | | + + +---- + + + | Absolute | 1.9 (H)Comment: Testing | 0 - 0.8 K/uL | EXTERNAL | | | Monocytes | performed at [facility], [address] | | LAB | | | | [address], | | | | | | [place] [address] | | | | + + +---- + + + | Absolute | 0.2Comment: Testing | 0 - 0.5 K/uL | EXTERNAL | | | Eosinophils | performed at [facility], [address] | | LAB | | | | [address], | | | | | | [place] [address] | | | | + + +---- [...] | | | | | [place] [address] | | | | | |1+ | | | | | |MICRO | | | | | |1+ | | | | | |TARGET | | | | | |NORMAL PLT MORPH | | | | | |Testing performed at [facility], [address] [place] [address], [place] [address] | | | | | | | | | | + + +---- + + + | Differentia | SMUDGE CELLSComment: | | EXTERNAL | | | l Comments | Testing performed at | | LAB | | | | [facility], [address] [place] [address] | | | | | | [facility], [place], [place] | | | | | | [address] | | | | + + +---- [...] [facility];[address] | mmol/L | LAB | | | | [address];[place] | | | | | | [address] | | | | + + + [...] | | | | | | [place] [address] | | | | + + + + + + | T3, Total | 102Comment: Testing | 80 - 200 ng/dL | EXTERNAL | | | | performed at [facility], [address] | | LAB | | | | [address] | | | | | | [place] [address] | | | | + + + [...] at [facility];[address] | | LAB | | | | [facility];[place], [place] | | | | | | [address] | | | | + + + [...] [facility];[address] [facility] | | | | | | [facility];[place] [address] | | | | + + + [...] | LAB | | | | [address];[place], [place] | | | | | | [address] | | | | + + + [...] | | | | | | ACUTE MS Testing | | | | | | performed at [facility];[address] | | | | | | [address];[place], [place] | | | | | | [address] | | | | + + + [...] [place] | | | | | | [address] | | | | + + + + + + | HEP B | NON REACTIVEComment: | | EXTERNAL | | | SURFACE | Testing performed at | | LAB | | | ANTIBODY | [facility], [address] | | | | | | [place] | | | | | | [address] | | | | + + + + + + | HEP B CORE | NON REACTIVEComment: | | EXTERNAL | | | IgM | Testing performed at | | LAB | | | | [facility], [address] | | | | | | [place] | | | | | | [address] | | | | + + + + + + | HCV Ab | NON REACTIVEComment: | | EXTERNAL | | | | Testing performed at | | LAB | | | | [facility], [address] [facility] | | | | | | [place] | | | | | | [address] | | | | + + + + + + | Hepatitis | No serologic evidence of | | EXTERNAL | | | Interp.: | HAV, HBV, or HCV | | LAB | | | | infection.Comment: | | | | | | Testing performed at | | | | | | [facility], [address] [facility] | | | | | | [place] | | | | | | [address] | | | | + + [...] | | | | | | P,CHROMATIN, MUCK MINER, SM | | | | | | MUCK MINER, SCL-70, CENTROMERE | | | | | | B, SSA, SSB AND SHAZIA-1) | | | | | | WASPERFORMED AND NO | | | | | | AUTOANTIBODIES WERE | | | | | | DETECTED.Testing | | | | | | performed at [facility], [address] | | | | | | [facility] | | | | | | [place] [address] | | | | + + + + + + | ANCA Screen | <1:20Comment: REFERENCE | | EXTERNAL | | | | RANGE: <1:20Testing | | LAB | | | | performed at [facility], [address] | | | | | | [facility] | | | | | | [place] [address] | | | | + + + [...] | | | | sting performed at [facility], | | | | | | [address] [facility], | | | | | | [place] [address] | | | | + + + [...] | | | | | | at [facility], [address] | | | | | | [place] | | | | | | [address] | | | | + + + [...] | | Patient | performed at [facility];[address] | | LAB | | | | [address];[place], [place] | | | | | | [address] | | | | + + + [...] at [facility] | | | | | | [address] [facility];[place], [place] | | | | | | [address] | | | | + + + [...] | | | FACTOR | performed at [facility], [address] | | LAB | | | | [address], | | | | | | [place] [address] | | | | + + [...] EXTERNAL | | | | performed at [facility], [address] | uIU/mL | LAB | | | | [address], | | | | | | [place] [address] | | | | + + + [...] | | | (REF) | performed at [facility], [address] | | LAB | | | | [address], | | | | | | [place] [address] | | | | + + + [...] EXTERNAL | | | | performed at [facility], [address] | mg/dL | LAB | | | | [address], | | | | | | [place] [address] | | | | + + + [...] EXTERNAL | | | | performed at [facility], [address] | | LAB | | | | [address], | | | | | | [place] [address] | | | | + + + [...] + + | Hemoglobin | 5.4Comment: The Lithuanian | 4.0 - 6.0 % | EXTERNAL [...] | | | | | performed at [facility], [address] | | | | | | [address], | | | | | | [place] [address] | | | | + + + [...] | | | | | performed at [facility], [address] | | | | | | [address], | | | | | | [place] [address] | | | | + + + [...] | LAB | | | | [address];[place], [place] | | | | | | [address] | | | | + + + [...] | | | | | [place] [address] | | | | + + + + + + | Albumin | 2.2 (L)Comment: Testing | 3.6 - 5.0 g/dL | EXTERNAL | | | | performed at [facility], [address] | | LAB | | | [address], | | | | | | [place] [address] | | | | + + + + + + | Bilirubin | 0.5Comment: Testing | 0.1 - 1.5 mg/dL | EXTERNAL | | | Total | performed at [facility], [address] | | LAB | | | | [address], | | | | | | [place] [address] | | | | + + + + + + | Bilirubin | 0.1Comment: Testing | 0.0 - 0.3 mg/dL | EXTERNAL | | | Direct | performed at [facility], [address] | | LAB | | | | [address], | | | | | | [place] [address] | | | | + + + + + + | ALP, | 112Comment: Testing | 35 - 115 U/L | EXTERNAL | | | External | performed at [facility], [address] | | LAB | | | [address], | | | | | | [place] [address] | | | | + + + + + + | AST | 31Comment: Testing | 10 - 45 U/L | EXTERNAL | | | | performed at [facility], [address] | | LAB | | | | [address], | | | | | | [place] [address] | | | | + + + + + + | ALT | 15Comment: Testing | 10 - 65 U/L | EXTERNAL | | | | performed at [facility], [address] | | LAB | | | | [address], | | | | | | [place] [address] | | | | + + + [...] | | | | | [place] [address] | | | | + + + + + + | Triglycerid | 398 (H)Comment: Testing | mg/dL | EXTERNAL | | | es | performed at [facility], [address] | | LAB | | | [address], | | | | | | [place] [address] | | | | + + + + + + | HDL | 48Comment: Testing | mg/dL | EXTERNAL | | | | performed at [facility], [address] | | LAB | | | | [address], | | | | | | [place] [address] | | | | + + + + + + | LDL | 35Comment: Testing | mg/dL | EXTERNAL | | | Cholesterol | performed at [facility], [address] | | LAB | | | , | [address], | | | | | Calculated, | [place] [address] | | | | | External | [...] | | | | | [place] [address] | | | | + + + + + + | K | 3.1 (L)Comment: Testing | 3.5 - 4.9 | EXTERNAL | | | | performed at [facility], [address] | mmol/L | LAB | | | | [address], | | | | | | [place] [address] | | | | + + + + + + | Cl | 108Comment: Testing | 99 - 109 mmol/L | EXTERNAL | | | | performed at [facility], [address] | | LAB | | | [address], | | | | | | [place] [address] | | | | + + + + + + | CO2 | 31Comment: Testing | 23 - 32 mmol/L | EXTERNAL | | | | performed at [facility], [address] | | LAB | | | | [address], | | | | | | [place] [address] | | | | + + + + + + | Anion Gap | 8Comment: Testing | 5 - 20 mmol/L | EXTERNAL | | | | performed at [facility], [address] | | LAB | | | | [address], | | | | | | [place] [address] | | | | + + + + + + | Glucose, | 135 (H)Comment: Testing | 65 - 99 mg/dL | EXTERNAL | | | Fasting | performed at [facility], [address] | | LAB | | | | [address], | | | | | | [place] [address] | | | | + + + + + + | BUN | 25Comment: Testing | 8 - 25 mg/dL | EXTERNAL | | | | performed at [facility], [address] | | LAB | | | | [address], | | | | | | [place] [address] | | | | + + + + + + | Creatinine | 0.58Comment: Testing | 0.50 - 1.00 | EXTERNAL | | | | performed at [facility], [address] | mg/dL | LAB | | | | [address], | | | | | | [place] [address] | | | | + + + + + + | BUN/Creatin | 43Comment: Testing | | EXTERNAL | | | ine Ratio | performed at [facility], [address] | | LAB | | | | [address], | | | | | | [place] [address] | | | | + + + + + + | Calcium | 7.8 (L)Comment: Testing | 8.5 - 10.2 | EXTERNAL | | | | performed at [facility], [address] | mg/dL | LAB | | | | [address], | | | | | | [place] [address] | | | | + + + [...] W | | | | | | [facility] [place], | | | | | | [place] [address] | | | | + + + [...] ALBICANSAbnormal | | | Testing performed at [facility], [address] [place], [place] | | | [address] | | + + + + +---------+ [...] [place] | | | | | | [address] | | | | + + + [...] GROWTH | | | Testing performed at [facility], [address] | | | [place] [address] | | + + + + +---------+ [...] | | tubes are noted on the lead person image. | | + + + + [...] and endotracheal tubes are noted on the lead person image. IMPRESSION: 1. No acute | | [...] and endotracheal tubes are noted on the lead person im age. | | | |IMPRESSION: | [...] PORT | | | Testing performed at [facility];[address];[place] [address] CULTURE | | | NO GROWTH | | | Testing performed at [facility], [address] [facility], [place], [place] | | | [address] | | + + + + +---------+ [...] | | | | | | at [facility], [address] | | | | | | [place] | | | | | | [address] | | | | + + + [...] at [facility] | | LAB | | | | [address];[place], [place] | | | | | | [address] | | | | + + + [...] [facility];[address] | | | | | [address];[place], [place] | | | | | | [address] | | | | + + + [...] [facility];[address] | mmol/L | LAB | | | | [address];[place] | | | | | | [address] | | | | + + + + + + | K | 4.1Comment: SLT | 3.5 - 4.9 | EXTERNAL | | | | HEMOLYSISTesting | mmol/L | LAB | | | | performed at [facility];[address] | | | | [...] [place] | | | | | | [address] | | | | + + + + + + | CO2 | 29Comment: Testing | 23 - 32 mmol/L | EXTERNAL | | | | performed at [facility];[address] | | LAB | | | | [address];[place] | | | | | | [address] | | | | + + + + + + | Anion Gap | 11Comment: Testing | 5 - 20 mmol/L | EXTERNAL | | | | performed at [facility];[address] | | LAB | | | | [address];[place] | | | | | | [address] | | | | + + + + + + | Glucose, | 120 (H)Comment: Testing | 65 - 99 mg/dL | EXTERNAL | | | Fasting | performed at [facility];[address] | | LAB | | | | [address];[place] | | | | | | [address] | | | | + + + + + + | BUN | 25Comment: Testing | 8 - 25 mg/dL | EXTERNAL | | | | performed at [facility];[address] | | LAB | | | | [address];[place] | | | | | | [address] | | | | + + + + + + | Creatinine | 0.72Comment: Testing | 0.50 - 1.00 | EXTERNAL | | | | performed at [facility];[address] | mg/dL | LAB | | | | [address];[place] | | | | | | [address] | | | | + + + + + + | BUN/Creatin | 35Comment: Testing | | EXTERNAL | | | ine Ratio | performed at [facility];[address] | | LAB | | | | [address];[place] | | | | | | [address] | | | | + + + + + + | Calcium | 8.3 (L)Comment: Testing | 8.5 - 10.2 | EXTERNAL | | | | performed at [facility];[address] | mg/dL | LAB | | | | [address] [facility];[place], [place] | | | | | | [address] | | | | + + + [...] [facility];[address];[place] [address] | | | | + + + [...] | | | Testing performed at [facility];[address] | | | [facility];[place] [address] CULTURE | | | NO GROWTH | | | Testing performed at [facility], [address] [facility], [place], [place] | | | [address] | | + + + + +---------+ [...] [place] | | | | | | [address] | | | | + + + [...] at [facility] | | | | | | [address] [facility];[place], [place] | | | | | | [address] | | | | + + + [...] [place] | | | | | | [address] | | | | + + [...] EXTERNAL LAB | | performed at [facility];[address] [place] [address];[place] [address] 027 NAP1 BI | | | 027 NAP1 BI PRESUMPTIVE NEGATIVE | | | Detection of 027 NAP1 BI strains of C. difficile is presumptive and | | | for epidemiological purposes and not intended to guide or monitor | | | treatment for C. difficile infections. Testing performed at [facility];[address] | | | [facility];[place] [address] | | + + + + +---------+ [...] [facility];[address] | mmol/L | LAB | | | | [address];[place], [place] | | | | | | [address] | | | | + + + [...] at [facility] | | LAB | | | | [address];[place] | | | | | | [address] | | | | + + + [...] | LAB | | | | [address];[place], [place] | | | | | | [address] | | | | + + + [...] [place] | | | | | | [address] | | | | + + + [...] [facility];[address] | | | | | | [address];[place], [place] | | | | | | [address] | | | | + + + [...] EXTERNAL | | | | performed at [facility], [address] | | LAB | | | | [address], | | | | | | [place] [address] | | | | + + +---- + + + | RED CELL | 3.63 (L)Comment: Testing | 3.7 0 - 5.10 | EXTERNAL | | | COUNT | performed at [facility], [address] | M/u L | LAB | | | | [address] [place], | | | | | | [place] [address] | | | | + + +---- + + + | Hgb | 9.7 (L)Comment: Testing | 11. 3 - 15.5 | EXTERNAL | | | | performed at [facility], [address] | g/d L | LAB | | | | [address], | | | | | | [place] [address] | | | | + + +---- + + + | Hematocrit, | 30.8 (L)Comment: Testing | 34. 0 - 46.0 % | EXTERNAL | | | POC | performed at [facility], [address] | | LAB | | | | [address], | | | | | | [place] [address] | | | | + + +---- + + + | MCV | 84.8Comment: Testing | 80. 0 - 100.0 fl | EXTERNAL | | | | performed at [facility], [address] | | LAB | | | | [address] [place], | | | | | | [place] [address] | | | | + + +---- + + + | MCH | 26.8 (L)Comment: Testing | 27. 0 - 34.0 pg | EXTERNAL | | | | performed at [facility], [address] | | LAB | | | | [address], | | | | | | [place] [address] | | | | + + +---- + + + | MCHC | 31.6 (L)Comment: Testing | 32. 0 - 35.5 | EXTERNAL | | | | performed at [facility], [address] | g/d L | LAB | | | | [address], | | | | | | [place] [address] | | | | + + +---- + + + | RDW-CV | 68.3 (H)Comment: Testing | 37 - 53 fl | EXTERNAL | | | | performed at [facility], [address] | | LAB | | | | [address], | | | | | | [place] [address] | | | | + + +---- + + + | Platelet | 388Comment: Testing | 150 - 400 K/uL | EXTERNAL | | | Count | performed at [facility], [address] | | LAB | | | Plasma | [address], | | | | | | [place] [address] | | | | + + +---- + + + | MPV | 9.6Comment: Testing | fl | EXTERNAL | | | | performed at [facility], [address] | | LAB | | | | [address], | | | | | | [place] [address] | | | | + + +---- + + + | Differentia | MANUALComment: Testing | | EXTERNAL | | | l Type | performed at [facility], [address] | | LAB | | | | [address], | | | | | | [place] [address] | | | | + + +---- + + + | Nucleated | 1 (H)Comment: Testing | /10 0WBC | EXTERNAL | | | Red Blood | performed at [facility], [address] | | LAB | | | Cells | [address] [place], | | | | | | [place] [address] | | | | + + +---- + + + | Segmented | 77Comment: Testing | % | EXTERNAL | | | Neutrophils | performed at [facility], [address] | | LAB | | | Manual | [address], | | | | | | [place] [address] | | | | + + +---- + + + | % Bands | 6Comment: Testing | % | EXTERNAL | | | | performed at [facility], [address] | | LAB | | | | [address], | | | | | | [place] [address] | | | | + + +---- + + + | % | 2Comment: Testing | % | EXTERNAL | | | Metamyelocy | performed at [facility], [address] | | LAB | | | petros | [place], | | | | | | [place] [address] | | | | + + +---- + + + | Lymphocytes | 12Comment: Testing | % | EXTERNAL | | | Manual | performed at [facility], [address] | | LAB | | | | [address], | | | | | | [place] [address] | | | | + + +---- + + + | Monocytes | 3Comment: Testing | % | EXTERNAL | | | Manual | performed at [facility], [address] | | LAB | | | | [address], | | | | | | [place] [address] | | | | + + +---- + + + | Absolute | 14.0 (H)Comment: Testing | 1.9 - 7.4 K/uL | EXTERNAL | | | Neutrophils | performed at [facility], [address] | | LAB | | | | [address], | | | | | | [place] [address] | | | | + + +---- + + + | Bands | 1.1 (H)Comment: Testing | 0 - 0.2 K/uL | EXTERNAL | | | Manual | performed at [facility], [address] | | LAB | | | | [address], | | | | | | [place] [address] | | | | + + +---- + + + | Absolute | 0.4 (H)Comment: Testing | K/u L | EXTERNAL | | | Metamyelocy | performed at [facility], [address] | | LAB | | | [address] | [address], | | | | | | [place], [place] [address] | | | | + + +---- + + + | Absolute | 2.2Comment: Testing | 1.0 - 3.9 K/uL | EXTERNAL | | | Lymphocytes | performed at [facility], [address] | | LAB | | | | [address], | | | | | | [place] [address] | | | | + + +---- + + + | Absolute | 0.5Comment: Testing | 0 - 0.8 K/uL | EXTERNAL | | | Monocytes | performed at [facility], [address] | | LAB | | | | [address], | | | | | | [place] [address] | | | | + + +---- + + + | RBC | 2+Comment: | | EXTERNAL | | | Morphology | ANISO1+POIK2+HYPO1+MICRO | | LAB | | | | 1+TARGETNORMAL PLT | | | | | | MORPHTesting performed | | | | | | at [facility], [address] | | | | | | [facility], | | | | | | [place] [address] | | | | | |1+ | | | | | |MICRO | | | | | |1+ | | | | | |TARGET | | | | | |NORMAL PLT MORPH | | | | | |Testing performed at [facility], [address] [place] [address] | | | | | | | [...] | | | | | [place] [address] | | | | + + + [...] EXTERNAL | | | | performed at [facility], [address] | | LAB | | | | [address], | | | | | | [place] [address] | | | | + + + [...] | | | | | [place] [address] | | | | + + + + + + | K | 3.1 (L)Comment: Testing | 3.5 - 4.9 | EXTERNAL | | | | performed at [facility], [address] | mmol/L | LAB | | | | [address], | | | | | | [place] [address] | | | | + + + + + + | Cl | 105Comment: Testing | 99 - 109 mmol/L | EXTERNAL | | | | performed at [facility], [address] | | LAB | | | | [address], | | | | | | [place] [address] | | | | + + + + + + | CO2 | 29Comment: Testing | 23 - 32 mmol/L | EXTERNAL | | | | performed at [facility], [address] | | LAB | | | | [address], | | | | | | [place] [address] | | | | + + + + + + | Anion Gap | 9Comment: Testing | 5 - 20 mmol/L | EXTERNAL | | | | performed at [facility], [address] | | LAB | | | | [address], | | | | | | [place] [address] | | | | + + + + + + | Glucose, | 159 (H)Comment: Testing | 65 - 99 mg/dL | EXTERNAL | | | Fasting | performed at [facility], [address] | | LAB | | | | [address], | | | | | | [place] [address] | | | | + + + + + + | BUN | 17Comment: Testing | 8 - 25 mg/dL | EXTERNAL | | | | performed at [facility], [address] | | LAB | | | | [address], | | | | | | [place] [address] | | | | + + + + + + | Creatinine | 0.41 (L)Comment: Testing | 0.50 - 1.00 | EXTERNAL | | | | performed at [facility], [address] | mg/dL | LAB | | | | [address], | | | | | | [place] [address] | | | | + + + + + + | BUN/Creatin | 41Comment: Testing | | EXTERNAL | | | ine Ratio | performed at [facility], [address] | | LAB | | | | [address], | | | | | | [place] [address] | | | | + + + + + + | Calcium | 7.8 (L)Comment: Testing | 8.5 - 10.2 | EXTERNAL | | | | performed at [facility], [address] | mg/dL | LAB | | | | [address], | | | | | | [place] [address] | | | | + + + [...] | | | | | | at [facility], [address] | | | | | | [address], | | | | | | [place] [address] | | | | + + + [...] at [facility] | | LAB | | | | [address];[place] | | | | | | [address] | | | | + + + [...] | LAB | | | | [address];[place], [place] | | | | | | [address] | | | | + + + [...] [facility];888 | mmol/L | LAB | | | | [address];[place] | | | | | | [address] | | | | + + + [...] | LAB | | | | [address];[place] | | | | | | [address] | | | | + + + [...] [place] | | | | | | [address] | | | | + + + [...] at [facility] | | | | | | [facility];[place], [place] | | | | | | [address] | | | | + + + [...] EXTERNAL | | | | performed at [facility], [address] | | LAB | | | | [address], | | | | | | [place] [address] | | | | + + +---- + + + | RED CELL | 3.55 (L)Comment: Testing | 3.7 0 - 5.10 | EXTERNAL | | | COUNT | performed at [facility], [address] | M/u L | LAB | | | | [address], | | | | | | [place] [address] | | | | + + +---- + + + | Hgb | 8.8 (L)Comment: RESULT | 11. 3 - 15.5 | EXTERNAL | | | | VERIFIEDTesting | g/d L | LAB | | | | performed at [facility], [address] | | | | | | [address], | | | | | | [place] [address] | | | | + + +---- + + + | Hematocrit, | 29.5 (L)Comment: RESULT | 34. 0 - 46.0 % | EXTERNAL | | | POC | VERIFIEDTesting | | LAB | | | | performed at [facility], [address] | | | | | | [address], | | | | | | [place] [address] | | | | + + +---- + + + | MCV | 83.2Comment: Testing | 80. 0 - 100.0 fl | EXTERNAL | | | | performed at [facility], [address] | | LAB | | | | [address], | | | | | | [place] [address] | | | | + + +---- + + + | MCH | 24.8 (L)Comment: Testing | 27. 0 - 34.0 pg | EXTERNAL | | | | performed at [facility], [address] | | LAB | | | | [address], | | | | | | [place] [address] | | | | + + +---- + + + | MCHC | 29.8 (L)Comment: Testing | 32. 0 - 35.5 | EXTERNAL | | | | performed at [facility], [address] | g/d L | LAB | | | | [address], | | | | | | [place] [address] | | | | + + +---- + + + | RDW-CV | 64.8 (H)Comment: Testing | 37 - 53 fl | EXTERNAL | | | | performed at [facility], [address] | | LAB | | | | [address], | | | | | | [place] [address] | | | | + + +---- + + + | Platelet | 397Comment: Testing | 150 - 400 K/uL | EXTERNAL | | | Count | performed at [facility], [address] | | LAB | | | Plasma | [address], | | | | | | [place] [address] | | | | + + +---- + + + | MPV | 9.2Comment: Testing | fl | EXTERNAL | | | | performed at [facility], [address] | | LAB | | | | [address], | | | | | | [place] [address] | | | | + + +---- + + + | Differentia | MANUALComment: Testing | | EXTERNAL | | | l Type | performed at [facility], [address] | | LAB | | | | [address], | | | | | | [place] [address] | | | | + + +---- + + + | Nucleated | 2 (H)Comment: Testing | /10 0WBC | EXTERNAL | | | Red Blood | performed at [facility], [address] | | LAB | | | Cells | [address], | | | | | | [place] [address] | | | | + + +---- + + + | Segmented | 72Comment: Testing | % | EXTERNAL | | | Neutrophils | performed at [facility], [address] | | LAB | | | Manual | [address], | | | | | | [place] [address] | | | | + + +---- + + + | % | 2Comment: Testing | % | EXTERNAL | | | Metamyelocy | performed at [facility], [address] | | LAB | | | petros | [address], | | | | | | [place] [address] | | | | + + +---- + + + | Lymphocytes | 15Comment: Testing | % | EXTERNAL | | | Manual | performed at [facility], [address] | | LAB | | | | [address], | | | | | | [place] [address] | | | | + + +---- + + + | Monocytes | 10Comment: Testing | % | EXTERNAL | | | Manual | performed at [facility], [address] | | LAB | | | | [address], | | | | | | [place] [address] | | | | + + +---- + + + | Eosinophils | 1Comment: Testing | % | EXTERNAL | | | Manual | performed at [facility], [address] | | LAB | | | | [address], | | | | | | [place] [address] | | | | + + +---- + + + | Absolute | 16.5 (H)Comment: Testing | 1.9 - 7.4 K/uL | EXTERNAL | | | Neutrophils | performed at [facility], [address] | | LAB | | | | [address], | | | | | | [place] [address] | | | | + + +---- + + + | Absolute | 0.5 (H)Comment: Testing | K/u L | EXTERNAL | | | Metamyelocy | performed at [facility], [address] | | LAB | | | petros | [address], | | | | | | [place] [address] | | | | + + +---- + + + | Absolute | 3.4Comment: Testing | 1.0 - 3.9 K/uL | EXTERNAL | | | Lymphocytes | performed at [facility], [address] | | LAB | | | | [address], | | | | | | [place] [address] | | | | + + +---- + + + | Absolute | 2.3 (H)Comment: Testing | 0 - 0.8 K/uL | EXTERNAL | | | Monocytes | performed at [facility], [address] | | LAB | | | | [address], | | | | | | [place] [address] | | | | + + +---- + + + | Absolute | 0.2Comment: Testing | 0 - 0.5 K/uL | EXTERNAL | | | Eosinophils | performed at [facility], [address] | | LAB | | | | [address], | | | | | | [place] [address] | | | | + + +---- + + + | RBC | 2+Comment: | | EXTERNAL | | | Morphology | ANISO1+POIK2+HYPO1+TARGE | | LAB | | | | TNORMAL PLT MORPHTesting | | | | | | performed at [facility], [address] | | | | | | [address], | | | | | | [place] [address] | | | | | |HYPO | | | | | |1+ | | | | | |TARGET | | | | | |NORMAL PLT MORPH | | | | | |Testing performed at [facility], [address] [facility], [place] [address] | | | | | | | [...] EXTERNAL | | | | performed at [facility], [address] | | LAB | | | | [facility], | | | | | | [place] [address] | | | | + + + [...] EXTERNAL | | | | performed at [facility], [address] | | LAB | | | | [address], | | | | | | [place] [address] | | | | + + [...] | | | | | | [place] [address] | | | | + + + + + + | K | 3.2 (L)Comment: Testing | 3.5 - 4.9 | EXTERNAL | | | | performed at [facility], [address] | mmol/L | LAB | | | | [address], | | | | | | [place] [address] | | | | + + + + + + | Cl | 113 (H)Comment: Testing | 99 - 109 mmol/L | EXTERNAL | | | | performed at [facility], [address] | | LAB | | | | [address], | | | | | | [place] [address] | | | | + + + + + + | CO2 | 30Comment: Testing | 23 - 32 mmol/L | EXTERNAL | | | | performed at [facility], [address] | | LAB | | | | [address], | | | | | | [place] [address] | | | | + + + + + + | Anion Gap | 7Comment: Testing | 5 - 20 mmol/L | EXTERNAL | | | | performed at [facility], [address] | | LAB | | | | [address], | | | | | | [place] [address] | | | | + + + + + + | Glucose, | 133 (H)Comment: Testing | 65 - 99 mg/dL | EXTERNAL | | | Fasting | performed at [facility], [address] | | LAB | | | | [address], | | | | | | [place] [address] | | | | + + + + + + | BUN | 22Comment: Testing | 8 - 25 mg/dL | EXTERNAL | | | | performed at [facility], [address] | | LAB | | | | [address], | | | | | | [place] [address] | | | | + + + + + + | Creatinine | 0.68Comment: Testing | 0.50 - 1.00 | EXTERNAL | | | | performed at [facility], [address] | mg/dL | LAB | | | | [address], | | | | | | [place] [address] | | | | + + + [...] | | | | | [place] [address] | | | | + + + [...] | | | | | | at [facility], [address] | | | | | | [address], | | | | | | [place] [address] | | | | + + + [...] | LAB | | | | [address];[place], [place] | | | | | | [address] | | | | + + + [...] [facility];888 | mmol/L | LAB | | | | [address];[place] | | | | | | [address] | | | | + + + [...] | LAB | | | | [address];[place], [place] | | | | | | [address] [...] | LAB | | | | [address] [facility];[place], [place] | | | | | | [address] | | | | + + + [...] | LAB | | | | [address];[place] | | | | | | [address] | | | | + + + [...] [facility];888 | mmol/L | LAB | | | | [address];[place], [place] | | | | | | [address] [...] at [facility] | | | | | | [facility];[place], [place] | | | | | | [address] | | | | + + + [...] | LAB | | | | [address];[place], [place] | | | | | | [address] | | | | + + + [...] | LAB | | | | [address];[place], [place] | | | | | | [address] | | | | + + + [...] [facility];[address] | | | | | | [facility];[place], [place] | | | | | | [address] | | | | + + + [...] at [facility];Alex | | LAB | | | | [address];[place] | | | | | | [address] | | | | + + + + + + | RED CELL | 3.78Comment: Testing | 3.70 - 5.10 | EXTERNAL | | | COUNT | performed at [facility];888 | M/uL | LAB | | | | [address];[place] | | | | | | [address] | | | | + + + + + + | Hgb | 9.2 (L)Comment: Testing | 11.3 - 15.5 | EXTERNAL | | | | performed at [facility];888 | g/dL | LAB | | | | [address];[place] | | | | | | [address] | | | | + + + + + + | Hematocrit, | 30.7 (L)Comment: Testing | 34.0 - 46.0 % | EXTERNAL | | | POC | performed at [facility];[address] | | LAB | | | | [address];[place] | | | | | | [address] | | | | + + + + + + | MCV | 81.2Comment: Testing | 80.0 - 100.0 fl | EXTERNAL | | | | performed at [facility];[address] | | LAB | | | | [address];[place] | | | | | | [address] | | | | + + + + + + | MCH | 24.2 (L)Comment: Testing | 27.0 - 34.0 pg | EXTERNAL | | | | performed at [facility];888 | | LAB | | | | [address];[place] | | | | | | [address] | | | | + + + + + + | MCHC | 29.8 (L)Comment: Testing | 32.0 - 35.5 | EXTERNAL | | | | performed at [facility];888 | g/dL | LAB [...] [place] | | | | | | [address] | | | | + + + + + + | Platelet | 385Comment: Testing | 150 - 400 K/uL | EXTERNAL | | | Count | performed at [facility];888 | | LAB | | | Plasma | [address];[place] | | | | | | [address] | | | | + + + + + + | MPV | 9.1Comment: Testing | fl | EXTERNAL | | | | performed at [facility];[address] | | LAB | | | | [address];[place] | | | | | | [address] | | | | + + + + + + | Differentia | MANUALComment: Testing | | EXTERNAL | | | l Type | performed at [facility];[address] | | LAB | | | | [address];[place] | | | | | | [address] | | | | + + + + + + | Segmented | 83Comment: Testing | % | EXTERNAL | | | Neutrophils | performed at [facility];[address] | | LAB | | | Manual | [address];[place] | | | | | | [address] | | | | + + + + + + | % Bands | 2Comment: Testing | % | EXTERNAL | | | | performed at [facility];[address] | | LAB | | | | [address];[place] | | | | | | [address] | | | | + + + + + + | % | 1Comment: Testing | % | EXTERNAL | | | Metamyelocy | performed at [facility];888 | | LAB | | | petros | [address];[place] | | | | | | [address] | | | | + + + + + + | Lymphocytes | 6Comment: Testing | % | EXTERNAL | | | Manual | performed at [facility];[address] | | LAB | | | | [address];[place] | | | | | | [address] | | | | + + + + + + | Monocytes | 8Comment: Testing | % | EXTERNAL | | | Manual | performed at [facility];[address] | | LAB | | | | [address];[place] | | | | | | [address] | | | | + + + + + + | Absolute | 15.9 (H)Comment: Testing | 1.9 - 7.4 K/uL | EXTERNAL | | | Neutrophils | performed at [facility];888 | | LAB | | | | [address];[place] | | | | | | [address] | | | | + + + + + + | Bands | 0.4 (H)Comment: Testing | 0 - 0.2 K/uL | EXTERNAL | | | Manual | performed at [facility];[address] | | LAB | | | | [address];[place] | | | | | | [address] | | | | + + + + + + | Absolute | 0.2 (H)Comment: Testing | K/uL | EXTERNAL | | | Metamyelocy | performed at [facility];888 | | LAB | | | petros | [address];[place] | | | | | | [address] | | | | + + + + + + | Absolute | 1.2Comment: Testing | 1.0 - 3.9 K/uL | EXTERNAL | | | Lymphocytes | performed at [facility];888 | | LAB | | | | [address];[place] | | | | | | [address] | | | | + + + + + + | Absolute | 1.5 (H)Comment: Testing | 0 - 0.8 K/uL | EXTERNAL | | | Monocytes | performed at [facility];888 | | LAB | | | | [address];[place] | | | | | | [address] | | | | + + + + + + | Platelet | ADEQUATEComment: Testing | | EXTERNAL | | | Estimate | performed [facility];888 | | | | | | [address];[place] | | | | | | [address] | | | | | |POIK | | | | | |1+ | | | | | |TARGET | | | | | |NORMAL PLT MORPH | | | | | |Testing performed at [facility];[address];[place] [address] | | | | | | | [...] | LAB | | | | [address];[place], [place] | | | | | | [address] | | | | + + + [...] at [facility] | | LAB | | | | [facility];[place], [place] | | | | | | [address] | | | | + + + [...] [facility];888 | mmol/L | LAB | | | | [address];[place] | | | | | | [address] | | | | + + + + + + | K | 3.1 (L)Comment: Testing | 3.5 - 4.9 | EXTERNAL | | | | performed at [facility];888 | mmol/L | LAB | | | | [address];[place] | | | | | | [address] | | | | + + + + + + | Cl | 114 (H)Comment: Testing | 99 - 109 mmol/L | EXTERNAL | | | | performed at [facility];[address] | | LAB | | | | [address];[place] | | | | | | [address] | | | | + + + + + + | CO2 | 31Comment: Testing | 23 - 32 mmol/L | EXTERNAL | | | | performed at [facility];[address] | | LAB | | | | [address];[place] | | | | | | [address] | | | | + + + + + + | Anion Gap | 9Comment: Testing | 5 - 20 mmol/L | EXTERNAL | | | | performed at [facility];[address] | | LAB | | | | [address];[place] | | | | | | [address] | | | | + + + + + + | Glucose, | 163 (H)Comment: Testing | 65 - 99 mg/dL | EXTERNAL | | | Fasting | performed at [facility];[address] | | LAB | | | | [address];[place] | | | | | | [address] | | | | + + + + + + | BUN | 20Comment: Testing | 8 - 25 mg/dL | EXTERNAL | | | | performed at [facility];[address] | | LAB | | | | [address];[place] | | | | | | [address] | | | | + + + + + + | Creatinine | 0.96Comment: Testing | 0.50 - 1.00 | EXTERNAL | | | | performed at [facility];888 | mg/dL | LAB | | | | [address];[place] | | | | | | [address] | | | | + + + + + + | BUN/Creatin | 21Comment: Testing | | EXTERNAL | | | ine Ratio | performed at [facility];888 | | LAB | | | | [address];[place] | | | | | | [address] | | | | + + + + + + | Calcium | 7.5 (L)Comment: Testing | 8.5 - 10.2 | EXTERNAL | | | | performed at [facility];888 | mg/dL | LAB | | | | [address];[place] | | | | | | [address] | | | | + + + [...] [facility];[address] | | | | | | [address];[place] [address] | | | | + + + [...] | LAB | | | | [address];[place] | | | | | | [address] | | | | + + + [...] [place] | | | | | | [address] | | | | + + + [...] | LAB | | | | [address];[place], [place] | | | | | | [address] | | | | + + + [...] at [facility] | | | | | | [address];[place], [place] | | | | | | [address] | | | | + + + [...] | LAB | | | | [address];[place], [place] | | | | | | [address] | | | | + + + [...] [facility];888 | | | | | | [address];[place], [place] | | | | | | [address] | | | | + + + [...] [place] | | | | | | [address] | | | | + + + + + + | RED CELL | 4.48Comment: Testing | 3.70 - 5.10 | EXTERNAL | | | COUNT | performed at [facility];888 | M/uL | LAB | | | | [address];[place] | | | | | | [address] | | | | + + + + + + | Hgb | 10.5 (L)Comment: Testing | 11.3 - 15.5 | EXTERNAL | | | | performed at [facility];888 | g/dL | LAB | | | | [address];[place] | | | | | | [address] | | | | + + + + + + | Hematocrit, | 36.0Comment: Testing | 34.0 - 46.0 % | EXTERNAL | | | POC | performed at [facility];888 | | LAB | | | | [address];[place] | | | | | | [address] | | | | + + + + + + | MCV | 80.5Comment: Testing | 80.0 - 100.0 fl | EXTERNAL | | | | performed at [facility];[address] | | LAB | | | | [address];[place] | | | | | | [address] | | | | + + + + + + | MCH | 23.5 (L)Comment: Testing | 27.0 - 34.0 pg | EXTERNAL | | | | performed at [facility];888 | | LAB | | | | [address];[place] | | | | | | [address] | | | | + + + + + + | MCHC | 29.1 (L)Comment: Testing | 32.0 - 35.5 | EXTERNAL | | | | performed at [facility];888 | g/dL | LAB | | | | [address];[place] | | | | | | [address] | | | | + + + + + + | RDW-CV | 61.3 (H)Comment: Testing | 37 - 53 fl | EXTERNAL | | | | performed at [facility];[address] | | LAB | | | | [address];[place] | | | | | | [address] | | | | + + + + + + | Platelet | 378Comment: Testing | 150 - 400 K/uL | EXTERNAL | | | Count | performed at [facility];888 | | LAB | | | Plasma | [address];[place] | | | | | | [address] | | | | + + + + + + | MPV | 9.5Comment: Testing | fl | EXTERNAL | | | | performed at [facility];888 | | LAB | | | | [address];[place] | | | | | | [address] | | | | + + + + + + | Differentia | MANUALComment: Testing | | EXTERNAL | | | l Type | performed at [facility];888 | | LAB | | | | [address];[place] | | | | | | [address] | | | | + + + + + + | Nucleated | 2 (H)Comment: Testing | /100WBC | EXTERNAL | | | Red Blood | performed at [facility];888 | | LAB | | | Cells | [address];[place] | | | | | | [address] | | | | + + + + + + | Segmented | 88Comment: Testing | % | EXTERNAL | | | Neutrophils | performed at [facility];888 | | LAB | | | Manual | [address];[place] | | | | | | [address] | | | | + + + + + + | % | 1Comment: Testing | % | EXTERNAL | | | Myelocytes | performed at [facility];888 | | LAB | | | | [address];[place] | | | | | | [address] | | | | + + + + + + | Lymphocytes | 6Comment: Testing | % | EXTERNAL | | | Manual | performed at [facility];[address] | | LAB | | | | [address];[place] | | | | | | [address] | | | | + + + + + + | Monocytes | 5Comment: Testing | % | EXTERNAL | | | Manual | performed at [facility];[address] | | LAB | | | | [address];[place] | | | | | | [address] | | | | + + + + + + | Absolute | 17.6 (H)Comment: Testing | 1.9 - 7.4 K/uL | EXTERNAL | | | Neutrophils | performed at [facility];888 | | LAB | | | | [address];[place] | | | | | | [address] | | | | + + + + + + | Absolute | 0.2 (H)Comment: Testing | K/uL | EXTERNAL | | | Myelocytes | performed at [facility];888 | | LAB | | | | [address];[place] | | | | | | [address] | | | | + + + + + + | Absolute | 1.2Comment: Testing | 1.0 - 3.9 K/uL | EXTERNAL | | | Lymphocytes | performed at [facility];888 | | LAB | | | | [address];[place] | | | | | | [address] | | | | + + + + + + | Absolute | 1.0 (H)Comment: Testing | 0 - 0.8 K/uL | EXTERNAL | | | Monocytes | performed at [facility];[address] | | LAB | | | | [address];[place] | | | | | | [address] | | | | + + + + + + | RBC | 1+Comment: | | EXTERNAL | | | Morphology | HYPO2+ANISO1+TARGET1+POI | | LAB | | | | K1+GIANT | | | | | | PLATELETSTesting | | | | | | performed at [facility];[address] | | | | | | [address];[place] | | | | | | [address] | | | | | |1+ | | | | | |POIK | | | | | |1+ | | | | | |GIANT PLATELETS | | | | | |Testing performed at [facility];[address];[place] [address] | | | | | | | [...] EXTERNAL | | | | performed at [facility], [address] | | LAB | | | | [address], | | | | | | [place] [address] | | | | + + + [...] [address];[place] [address] | | | | + + + [...] EXTERNAL | | | | performed at [facility], [address] | | LAB | | | | [address], | | | | | | [place] [address] | | | | + + + [...] | | | | | [place] [address] | | | | + + + + + + | K | 4.4Comment: Testing | 3.5 - 4.9 | EXTERNAL | | | | performed at [facility], [address] | mmol/L | LAB | | | | [address], | | | | | | [place] [address] | | | | + + + + + + | Cl | 106Comment: Testing | 99 - 109 mmol/L | EXTERNAL | | | | performed at [facility], [address] | | LAB | | | | [address], | | | | | | [place] [address] | | | | + + + + + + | CO2 | 32Comment: Testing | 23 - 32 mmol/L | EXTERNAL | | | | performed at [facility], [address] | | LAB | | | | [address], | | | | | | [place] [address] | | | | + + + + + + | Anion Gap | 12Comment: Testing | 5 - 20 mmol/L | EXTERNAL | | | | performed at [facility], [address] | | LAB | | | | [address], | | | | | | [place] [address] | | | | + + + + + + | Glucose, | 212 (H)Comment: Testing | 65 - 99 mg/dL | EXTERNAL | | | Fasting | performed at [facility], [address] | | LAB | | | | [address], | | | | | | [place] [address] | | | | + + + + + + | BUN | 20Comment: Testing | 8 - 25 mg/dL | EXTERNAL | | | | performed at [facility], [address] | | LAB | | | | [address], | | | | | | [place] [address] | | | | + + + + + + | Creatinine | 0.86Comment: Testing | 0.50 - 1.00 | EXTERNAL | | | | performed at [facility], [address] | mg/dL | LAB | | | | [address], | | | | | | [place] [address] | | | | + + + + + + | BUN/Creatin | 23Comment: Testing | | EXTERNAL | | | ine Ratio | performed at [facility], [address] | | LAB | | | | [address], | | | | | | [place] [address] | | | | + + + + + + | Calcium | 8.2 (L)Comment: Testing | 8.5 - 10.2 | EXTERNAL | | | | performed at [facility], [address] | mg/dL | LAB | | | | [address], | | | | | | [place] [address] | | | | + + + [...] Gertrude, | | | | | | [place] [address] | | | | + + + [...] [facility];[address] | mmol/L | LAB | | | | [address];[place], [place] | | | | | | [address] | | | | + + + [...] [facility];[address] | | | | | | [address] [facility];[place], [place] | | | | | | [address] | | | | + + [...] [facility];[address] | mmol/L | LAB | | | | [address];[place], [place] | | | | | | [address] | | | | + + + [...] at [facility];[address] | | LAB | | | | [address];[place], [place] | | | | | | [address] | | | | + + + [...] [facility];[address] | mmol/L | LAB | | | | [address];[place], [place] | | | | | | [address] | | | | + + + [...] | LAB | | | | [address];[place] | | | | | | [address] | | | | + + + [...] | | | | | | ACUTE MS Testing | | | | | | performed at [facility];[address] | | | | | | [address];[place], [place] | | | | | | [address] | | | | + + + [...] at [facility] | | | | | | [address];[place], [place] | | | | | | [address] | | | | + + + [...] [place] | | | | | | [address] | | | | + + + + + + | RED CELL | 4.49Comment: Testing | 3.70 - 5.10 | EXTERNAL | | | COUNT | performed at [facility];[address] | M/uL | LAB | | | | [address];[place] | | | | | | [address] | | | | + + + + + + | Hgb | 10.6 (L)Comment: Testing | 11.3 - 15.5 | EXTERNAL | | | | performed at [facility];888 | g/dL | LAB | | | | [address];[place] | | | | | | [address] | | | | + + + + + + | Hematocrit, | 36.1Comment: Testing | 34.0 - 46.0 % | EXTERNAL | | | POC | performed at [facility] [...] | | LAB | | | | [address];[place] | | | | | | [address] | | | | + + + + + + | MCH | 23.5 (L)Comment: Testing | 27.0 - 34.0 pg | EXTERNAL | | | | performed at [facility];888 | | LAB | | | | [address];[place] | | | | | | [address] | | | | + + + + + + | MCHC | 29.3 (L)Comment: Testing | 32.0 - 35.5 | EXTERNAL | | | | performed at [facility];888 | g/dL | LAB | | | | [address];[place] | | | | | | [address] | | | | + + + + + + | RDW-CV | 60.8 (H)Comment: Testing | 37 - 53 fl | EXTERNAL | | | | performed at [facility];888 | | LAB | | | | [address];[place] | | | | | | [address] | | | | + + + + + + | Platelet | 382Comment: Testing | 150 - 400 K/uL | EXTERNAL | | | Count | performed at [facility];888 | | LAB | | | Plasma | [address];[place] | | | | | | [address] | | | | + + + + + + | MPV | 9.1Comment: Testing | fl | EXTERNAL | | | | performed at [facility];888 | | LAB | | | | [address];[place] | | | | | | [address] | | | | + + + + + + | Differentia | MANUALComment: Testing | | EXTERNAL | | | l Type | performed at [facility];888 | | LAB | | | | [address];[place] | | | | | | [address] | | | | + + + + + + | Nucleated | 2 (H)Comment: Testing | /100WBC | EXTERNAL | | | Red Blood | performed at [facility];888 | | LAB | | | Cells | [address];[place] | | | | | | [address] | | | | + + + + + + | Segmented | 90Comment: Testing | % | EXTERNAL | | | Neutrophils | performed at [facility];888 | | LAB | | | Manual | [address];[place] | | | | | | [address] | | | | + + + + + + | % Bands | 2Comment: Testing | % | EXTERNAL | | | | performed at [facility];888 | | LAB | | | | [address];[place] | | | | | | [address] | | | | + + + + + + | Lymphocytes | 8Comment: Testing | % | EXTERNAL | | | Manual | performed at [facility];888 | | LAB | | | | [address];[place] | | | | | | [address] | | | | + + + + + + | Absolute | 20.5 (H)Comment: Testing | 1.9 - 7.4 K/uL | EXTERNAL | | | Neutrophils | performed at [facility];888 | | LAB | | | | [address];[place] | | | | | | [address] | | | | + + + + + + | Bands | 0.5 (H)Comment: Testing | 0 - 0.2 K/uL | EXTERNAL | | | Manual | performed at [facility];888 | | LAB | | | | [address];[place] | | | | | | [address] | | | | + + + + + + | Absolute | 1.8Comment: Testing | 1.0 - 3.9 K/uL | EXTERNAL | | | Lymphocytes | performed at [facility];888 | | LAB | | | | [address];[place] | | | | | | [address] | | | | + + + + + + | Platelet | ADEQUATEComment: Testing | | EXTERNAL | | | Estimate | performed at [facility];888 | | LAB | | | | [address];[place] | | | | | | [address] | | | | + + + + + + | RBC | 2+Comment: | | EXTERNAL | | | Morphology | ANISO1+HYPO1+ELLIPTO1+PO | | LAB | | | | IK2+TARGETNORMAL PLT | | | | | | MORPHTesting performed | | | | | | at [facility];[address];[place] [address] | | | | | |ELLIPTO | | | | | |1+ | | | | | |POIK | | | | | |2+ | | | | | |TARGET | | | | | |NORMAL PLT MORPH | | | | | |Testing performed at [facility];[address] [facility];[place] [address] | | | | | | | [...] | LAB | | | | [address];[place] | | | | | | [address] | | | | + + + [...] | LAB | | | | [facility];[address] [place] [address] | | | | | | [address];[place] [address] | | | | + + + [...] [place] | | | | | | [address] | | | | + + + [...] | LAB | | | | [address];[place], [place] | | | | | | [address] | | | | + + + [...] at [facility] | | | | | | [facility];[place], [place] | | | | | | [address] [...] [facility];888 | mmol/L | LAB | | | | [address];[place] | | | | | | [address] | | | | + + + + + + | K | 3.7Comment: Testing | 3.5 - 4.9 | EXTERNAL | | | | performed at [facility];888 | mmol/L | LAB | | | | [address];[place] | | | | | | [address] | | | | + + + + + + | Cl | 109Comment: Testing | 99 - 109 mmol/L | EXTERNAL | | | | performed at [facility];888 | | LAB | | | | [address];[place] | | | | | | [address] | | | | + + + + + + | CO2 | 28Comment: Testing | 23 - 32 mmol/L | EXTERNAL | | | | performed at [facility];888 | | LAB | | | | [address];[place] | | | | | | [address] | | | | + + + + + + | Anion Gap | 14Comment: Testing | 5 - 20 mmol/L | EXTERNAL | | | | performed at [facility];888 | | LAB | | | | [address];[place] | | | | | | [address] | | | | + + + + + + | Glucose, | 99Comment: Testing | 65 - 99 mg/dL | EXTERNAL | | | Fasting | performed at [facility];888 | | LAB | | | | [address];[place] | | | | | | [address] | | | | + + + + + + | BUN | 22Comment: Testing | 8 - 25 mg/dL | EXTERNAL | | | | performed at [facility];888 | | LAB | | | | [address];[place] | | | | | | [address] | | | | + + + + + + | Creatinine | 0.98Comment: Testing | 0.50 - 1.00 | EXTERNAL | | | | performed at [facility];888 | mg/dL | LAB | | | | [address];[place] | | | | | | [address] | | | | + + + + + + | BUN/Creatin | 23Comment: Testing | | EXTERNAL | | | ine Ratio | performed at [facility];888 | | LAB | | | | [address];[place] | | | | | | [address] | | | | + + + + + + | Calcium | 8.4 (L)Comment: Testing | 8.5 - 10.2 | EXTERNAL | | | | performed at [facility];888 | mg/dL | LAB | | | | [address];[place] | | | | | | [address] | | | | + + + [...] at [facility];[address] [place] [address] | | | | | | Blvd;[place] [address] | | | | + + + [...] | | | | | | [place] [id number] AT 1844, | | | | | | VAPTesting performed at | | | | | | [facility];[address];[place] [address] | | | | + + + [...] [facility];888 | mmol/L | LAB | | | | [address];[place], [place] | | | | | | [address] | | | | + + + [...] | LAB | | | | [address];[place], [place] | | | | | | [address] | | | | + + + [...] at [facility] | | LAB | | | | [address];[place], [place] | | | | | | [address] | | | | + + + [...] EXTERNAL LAB | | performed at [facility];[address] [place] [address];[place] [address] 027 NAP1 BI | | | 027 NAP1 BI PRESUMPTIVE NEGATIVE | | | Detection of 027 NAP1 BI strains of C. difficile is presumptive and | | | for epidemiological purposes and not intended to guide or monitor | | | treatment for C. difficile infections. Testing performed at [facility];888 | | | [facility];[place] [address] | | + + + + +---------+ [...] at [facility] | | | | | | [address] [facility];[place], [place] | | | | | | [address] | | | | + + + [...] EXTERNAL | | | | performed at [facility], [address] | | LAB | | | | [address], | | | | | | [place] [address] | | | | + + + + + + | RED CELL | 4.43Comment: Testing | 3.70 - 5.10 | EXTERNAL | | | COUNT | performed at [facility], [address] | M/uL | LAB | | | | [address], | | | | | | [place] [address] | | | | + + + + + + | Hgb | 10.8 (L)Comment: Testing | 11.3 - 15.5 | EXTERNAL | | | | performed at [facility], [address] | g/dL | LAB | | | | [address], | | | | | | [place] [address] | | | | + + + + + + | Hematocrit, | 36.2Comment: Testing | 34.0 - 46.0 % | EXTERNAL | | | POC | performed at [facility], [address] | | LAB | | | | [address], | | | | | | [place] [address] | | | | + + + + + + | MCV | 81.7Comment: Testing | 80.0 - 100.0 fl | EXTERNAL | | | | performed at [facility], [address] | | LAB | | | | [address], | | | | | | [place] [address] | | | | + + + + + + | MCH | 24.5 (L)Comment: Testing | 27.0 - 34.0 pg | EXTERNAL | | | | performed at [facility], [address] | | LAB | | | | [address], | | | | | | [place] [address] | | | | + + + + + + | MCHC | 29.9 (L)Comment: Testing | 32.0 - 35.5 | EXTERNAL | | | | performed at [facility], [address] | g/dL | LAB | | | | [address], | | | | | | [place] [address] | | | | + + + + + + | RDW-CV | 63.0 (H)Comment: Testing | 37 - 53 fl | EXTERNAL | | | | performed at [facility], [address] | | LAB | | | | [address], | | | | | | [place] [address] | | | | + + + + + + | Platelet | 325Comment: Testing | 150 - 400 K/uL | EXTERNAL | | | Count | performed at [facility], [address] | | LAB | | | Plasma | [address], | | | | | | [place] [address] | | | | + + + + + + | MPV | 9.5Comment: Testing | fl | EXTERNAL | | | | performed at [facility], [address] | | LAB | | | | [address], | | | | | | [place] [address] | | | | + + + + + + | Differentia | MANUALComment: Testing | | EXTERNAL | | | l Type | performed at [facility], [address] | | LAB | | | | [address], | | | | | | [place], [place] [address] | | | | + + + + + + | Segmented | 86Comment: Testing | % | EXTERNAL | | | Neutrophils | performed at [facility], [address] | | LAB | | | Manual | [address], | | | | | | [place] [address] | | | | + + + + + + | % Bands | 2Comment: Testing | % | EXTERNAL | | | | performed at [facility], [address] | | LAB | | | | [address], | | | | | | [place], [place] [address] | | | | + + + + + + | Lymphocytes | 5Comment: Testing | % | EXTERNAL | | | Manual | performed at [facility], [address] | | LAB | | | | [address], | | | | | | [place] [address] | | | | + + + + + + | Monocytes | 7Comment: Testing | % | EXTERNAL | | | Manual | performed at [facility], [address] | | LAB | | | | [address], | | | | | | [place] [address] | | | | + + + + + + | Absolute | 17.3 (H)Comment: Testing | 1.9 - 7.4 K/uL | EXTERNAL | | | Neutrophils | performed at [facility], [address] | | LAB | | | | [address], | | | | | | [place] [address] | | | | + + + + + + | Bands | 0.4 (H)Comment: Testing | 0 - 0.2 K/uL | EXTERNAL | | | Manual | performed at [facility], [address] | | LAB | | | | [address], | | | | | | [place] [address] | | | | + + + + + + | Absolute | 1.0Comment: Testing | 1.0 - 3.9 K/uL | EXTERNAL | | | Lymphocytes | performed at [facility], [address] | | LAB | | | [address], | | | | | | [place] [address] | | | | + + + + + + | Absolute | 1.4 (H)Comment: Testing | 0 - 0.8 K/uL | EXTERNAL | | | Monocytes | performed at [facility], [address] | | LAB | | | | [address], | | | | | | [place] [address] | | | | + + + + + + | RBC | NORMAL RBC MORPHComment: | | EXTERNAL | | | Morphology | NORMAL PLT MORPHTesting | | LAB | | | | performed at [facility], [address] | | | | | | [address], | | | | | | [place] [address] | | | | + + + [...] | LAB | | | | [address];[place], [place] | | | | | | [address] | | | | + + + [...] [place] | | | | | | [address] | | | | + + + [...] [facility];888 | mmol/L | LAB | | | | [address];[place] | | | | | | [address] | | | | + + + + + + | K | 3.6Comment: Testing | 3.5 - 4.9 | EXTERNAL | | | | performed at [facility];888 | mmol/L | LAB | | | | [address];[place] | | | | | | [address] | | | | + + + + + + | Cl | 109Comment: Testing | 99 - 109 mmol/L | EXTERNAL | | | | performed at [facility];[address] | | LAB | | | | [address];[place] | | | | | | [address] | | | | + + + + + + | CO2 | 31Comment: Testing | 23 - 32 mmol/L | EXTERNAL | | | | performed at [facility];[address] | | LAB | | | | [address];[place] | | | | | | [address] | | | | + + + + + + | Anion Gap | 11Comment: Testing | 5 - 20 mmol/L | EXTERNAL | | | | performed at [facility];[address] | | LAB | | | | [address];[place] | | | | | | [address] | | | | + + + + + + | Glucose, | 85Comment: Testing | 65 - 99 mg/dL | EXTERNAL | | | Fasting | performed at [facility];[address] | | LAB | | | | [address];[place] | | | | | | [address] | | | | + + + + + + | BUN | 18Comment: Testing | 8 - 25 mg/dL | EXTERNAL | | | | performed at [facility];[address] | | LAB | | | | [address];[place] | | | | | | [address] | | | | + + + + + + | Creatinine | 0.89Comment: Testing | 0.50 - 1.00 | EXTERNAL | | | | performed at [facility];888 | mg/dL | LAB | | | | [address];[place] | | | | | | [address] | | | | + + + + + + | BUN/Creatin | 20Comment: Testing | | EXTERNAL | | | ine Ratio | performed at [facility];[address] | | LAB | | | | [address];[place] | | | | | | [address] | | | | + + + + + + | Calcium | 8.0 (L)Comment: Testing | 8.5 - 10.2 | EXTERNAL | | | | performed at [facility];888 | mg/dL | LAB | | | | [address] [facility];[place], [place] | | | | | | [address] | | | | + + + [...] [facility];[address];[place] [address] | | | | + + + [...] [facility];888 | mmol/L | LAB | | | | [address];[place], [place] | | | | | | [address] | | | | + + + [...] at [facility];[address] | | LAB | | | | [address];[place], [place] | | | | | | [address] | | | | + + [...] | LAB | | | | [address];[place], [place] | | | | | | [address] | | | | + + + [...] EXTERNAL LAB | | performed at [facility];[address] [place] [address];[place] [address] Pneumocystis Smear, | | | DFA ACCESSION NO. | | | [id number] SPECIMEN SOURCE SPUTUM | | | RESULT NO PNEUMOCYSTIS SEEN | | | BY DIRECT | | | FLUORESCENT ANTIBODY STAIN Testing performed at [facility] | | | [place], [address], [facility] [address] PNEMOCYSTIS FA,STATUS | | | REPORT STATUS FINAL 04/15/2014 | | | Testing performed at [facility], [address], [place] | | | [place] [address] | | + + + + +---------+ [...] [facility];[address] | | | | | [address];[place], [place] | | | | | | [address] | | | | + + + [...] | LAB | | | | [address];[place] | | | | | | [address] | | | | + + + [...] at [facility] | | | | | | [address];[place] | | | | | | [address] | | | | + + + [...] [facility];[address] | | | | | | [facility];[place], [place] | | | | | | [address] | | | | + + + [...] [place] | | | | | | [address] | | | | + + + + + + | RED CELL | 4.14Comment: Testing | 3.70 - 5.10 | EXTERNAL | | | COUNT | performed at [facility];888 | M/uL | LAB | | | | [address];[place] | | | | | | [address] | | | | + + + + + + | Hgb | 10.0 (L)Comment: Testing | 11.3 - 15.5 | EXTERNAL | | | | performed at [facility];888 | g/dL | LAB | | | | [address];[place] | | | | | | [address] | | | | + + + + + + | Hematocrit, | 32.7 (L)Comment: Testing | 34.0 - 46.0 % | EXTERNAL | | | POC | performed at [facility];[address] | | LAB | | | | [address];[place] | | | | | | [address] | | | | + + + + + + | MCV | 79.1 (L)Comment: Testing | 80.0 - 100.0 fl | EXTERNAL | | | | performed at [facility];[address] | | LAB | | | | [address];[place] | | | | | | [address] | | | | + + + [...] [facility];888 | g/dL | LAB | | | | [address];[place] | | | | | | [address] | | | | + + + + + + | RDW-CV | 60.8 (H)Comment: Testing | 37 - 53 fl | EXTERNAL | | | | performed at [facility];888 | | LAB | | | | [address];[place] | | | | | | [address] | | | | + + + + + + | Platelet | 281Comment: Testing | 150 - 400 K/uL | EXTERNAL | | | Count | performed at [facility];[address] | | LAB | | | Plasma | [address];[place] | | | | | | [address] | | | | + + + + + + | MPV | 9.1Comment: Testing | fl | EXTERNAL | | | | performed at [facility];[address] | | LAB | | | | [address];[place] | | | | | | [address] | | | | + + + + + + | Differentia | MANUALComment: Testing | | EXTERNAL | | | l Type | performed at [facility];[address] | | LAB | | | | [address];[place] | | | | | | [address] | | | | + + + + + + | Nucleated | 1 (H)Comment: Testing | /100WBC | EXTERNAL | | | Red Blood | performed at [facility];[address] | | LAB | | | Cells | [address];[place] | | | | | | [address] | | | | + + + + + + | Segmented | 91Comment: Testing | % | EXTERNAL | | | Neutrophils | performed at [facility];[address] | | LAB | | | Manual | [address];[place] | | | | | | [address] | | | | + + + + + + | Lymphocytes | 6Comment: Testing | % | EXTERNAL | | | Manual | performed at [facility];[address] | | LAB | | | | [address];[place] | | | | | | [address] | | | | + + + + + + | Monocytes | 3Comment: Testing | % | EXTERNAL | | | Manual | performed at [facility];[address] | | LAB | | | | [address];[place] | | | | | | [address] | | | | + + + + + + | Absolute | 19.1 (H)Comment: Testing | 1.9 - 7.4 K/uL | EXTERNAL | | | Neutrophils | performed at [facility];[address] | | LAB | | | | [address];[place] | | | | | | [address] | | | | + + + + + + | Absolute | 1.3Comment: Testing | 1.0 - 3.9 K/uL | EXTERNAL | | | Lymphocytes | performed at [facility];[address] | | LAB | | | | [address];[place] | | | | | | [address] | | | | + + + + + + | Absolute | 0.6Comment: Testing | 0 - 0.8 K/uL | EXTERNAL | | | Monocytes | performed at [facility];[address] | | LAB | | | | [address];[place] | | | | | | [address] | | | | + + + + + + | Platelet | ADEQUATEComment: Testing | | EXTERNAL | | | Estimate | performed at [facility];[address] | | LAB | | | | [address];[place] | | | | | | [address] | | | | + + + + + + | RBC | 3+Comment: | | EXTERNAL | | | Morphology | ANISO1+MACRO1+MICRO1+HYP | | LAB | | | | O1+POLY2+TARGET1+ACANTHO | | | | | | Testing performed at | | | | | | [facility];[address];[place] [address] | | | | | |MICRO | [...] [facility];[address];[place] [address] | | | | | | | [...] at [facility] | | LAB | | | | [address];[place], [place] | | | | | | [address] | | | | + + + [...] at [facility];[address] [place] [address] | | | | | | [facility];[place] [address] | | | | + + [...] [facility];888 | mmol/L | LAB | | | | [address];[place] | | | | | | [address] | | | | + + + + + + | K | 5.4 (H)Comment: SLT | 3.5 - 4.9 | EXTERNAL | | | | HEMOLYSISTesting | mmol/L | LAB | | | | performed at [facility];[address] | | | | | | [address];[place] | | | | | | [address] | | | | + + + + + + | Cl | 107Comment: Testing | 99 - 109 mmol/L | EXTERNAL | | | | performed at [facility];[address] | | LAB | | | | [address];[place] | | | | | | [address] | | | | + + + + + + | CO2 | 24Comment: Testing | 23 - 32 mmol/L | EXTERNAL | | | | performed at [facility] [place];[address] | | LAB | | | | [address];[place] | | | | | | [address] | | | | + + + + + + | Anion Gap | 15Comment: Testing | 5 - 20 mmol/L | EXTERNAL | | | | performed at [facility];[address] | | LAB | | | | [address];[place] | | | | | | [address] | | | | + + + + + + | Glucose, | 94Comment: Testing | 65 - 99 mg/dL | EXTERNAL | | | Fasting | performed at [facility] [place];[address] | | LAB | | | | [address];[place] | | | | | | [address] | | | | + + + + + + | BUN | 14Comment: Testing | 8 - 25 mg/dL | EXTERNAL | | | | performed at [facility] [place];[address] | | LAB | | | | [address];[place] | | | | | | [address] | | | | + + + + + + | Creatinine | 0.72Comment: Testing | 0.50 - 1.00 | EXTERNAL | | | | performed at [facility] [place];888 | mg/dL | LAB | | | | [address];[place] | | | | | | [address] | | | | + + + + + + | BUN/Creatin | 19Comment: Testing | | EXTERNAL | | | ine Ratio | performed at [facility] [place];[address] | | LAB | | | | [address];[place] | | | | | | [address] | | | | + + + + + + | Calcium | 7.3 (L)Comment: Testing | 8.5 - 10.2 | EXTERNAL | | | | performed at [facility] [place];888 | mg/dL | LAB | | | | [address];[place] | | | | | | [address] | | | | + + + [...] [facility] [place];[address];[place] [phone] | | | | + + + [...] HAND | | | Testing performed at [facility] [place] [place];[address] | | | [facility];[place] [address] CULTURE | | | NO GROWTH | | | Testing performed at [facility], [address] [place], [place] | | | [address] | | + + + + +---------+ [...] at | | | | | | [facility];[address] [place] [address] | | | | | | [facility];[place] [address] | | | | + + + [...] at [facility] | | | | | | [address];[place], [place] | | | | | | [address] | | | | + + + [...] [place] | | | | | | [address] | | | | + + + + + + | RED CELL | 4.24Comment: Testing | 3.70 - 5.10 | EXTERNAL | | | COUNT | performed at [facility];888 | M/uL | LAB | | | | [address];[place] | | | | | | [address] | | | | + + + + + + | Hgb | 10.3 (L)Comment: Testing | 11.3 - 15.5 | EXTERNAL | | | | performed at [facility];888 | g/dL | LAB | | | | [address];[place] | | | | | | [address] | | | | + + + + + + | Hematocrit, | 33.3 (L)Comment: Testing | 34.0 - 46.0 % | EXTERNAL | | | POC | performed at [facility] [place];[address] | | LAB | | | | [address];[place] | | | | | | [address] | | | | + + + + + + | MCV | 78.6 (L)Comment: Testing | 80.0 - 100.0 fl | EXTERNAL | | | | performed at [facility] [place];[address] | | LAB | | | | [address];[place] | | | | | | [address] | | | | + + + [...] [facility];888 | g/dL | LAB | | | | [address];[place] | | | | | | [address] | | | | + + + + + + | RDW-CV | 61.7 (H)Comment: Testing | 37 - 53 fl | EXTERNAL | | | | performed at [facility];[address] | | LAB | | | | [address];[place] | | | | | | [address] | | | | + + + + + + | Platelet | 283Comment: Testing | 150 - 400 K/uL | EXTERNAL | | | Count | performed at [facility];[address] | | LAB | | | Plasma | [address];[place] | | | | | | [address] | | | | + + + + + + | MPV | 9.0Comment: Testing | fl | EXTERNAL | | | | performed at [facility];[address] | | LAB | | | | [address];[place] | | | | | | [address] | | | | + + + + + + | Differentia | MANUALComment: Testing | | EXTERNAL | | | l Type | performed at [facility];[address] | | LAB | | | | [address];[place] | | | | | | [address] | | | | + + + + + + | Nucleated | 3 (H)Comment: Testing | /100WBC | EXTERNAL | | | Red Blood | performed at [facility];888 | | LAB | | | Cells | [address];[place] | | | | | | [address] | | | | + + + + + + | Segmented | 91Comment: Testing | % | EXTERNAL | | | Neutrophils | performed at [facility];[address] | | LAB | | | Manual | [address];[place] | | | | | | [address] | | | | + + + + + + | % Bands | 2Comment: Testing | % | EXTERNAL | | | | performed at [facility];[address] | | LAB | | | | [address];[place] | | | | | | [address] | | | | + + + + + + | Lymphocytes | 2Comment: Testing | % | EXTERNAL | | | Manual | performed at [facility];888 | | LAB | | | | [address];[place] | | | | | | [address] | | | | + + + + + + | % Atypical | 2Comment: Testing | % | EXTERNAL | | | Lymphocytes | performed at [facility];888 | | LAB | | | | [address];[place] | | | | | | [address] | | | | + + + + + + | Monocytes | 3Comment: Testing | % | EXTERNAL | | | Manual | performed at [facility];888 | | LAB | | | | [address];[place] | | | | | | [address] | | | | + + + + + + | Absolute | 16.9 (H)Comment: Testing | 1.9 - 7.4 K/uL | EXTERNAL | | | Neutrophils | performed at [facility];888 | | LAB | | | | [address];[place] | | | | | | [address] | | | | + + + + + + | Bands | 0.4 (H)Comment: Testing | 0 - 0.2 K/uL | EXTERNAL | | | Manual | performed at [facility];888 | | LAB | | | | [address];[place] | | | | | | [address] | | | | + + + + + + | Absolute | 0.4 (L)Comment: Testing | 1.0 - 3.9 K/uL | EXTERNAL | | | Lymphocytes | performed at [facility];[address] | | LAB | | | | [address];[place] | | | | | | [address] | | | | + + + + + + | Absolute | 0.4 (H)Comment: Testing | K/uL | EXTERNAL | | | Atypical | performed at [facility];888 | | LAB | | | Lymphocytes | [address];[place] | | | | | | [address] | | | | + + + + + + | Absolute | 0.6Comment: Testing | 0 - 0.8 K/uL | EXTERNAL | | | Monocytes | performed at [facility];[address] | | LAB | | | | [address];[place] | | | | | | [address] | | | | + + + + + + | Platelet | ADEQUATEComment: Testing | | EXTERNAL | | | Estimate | performed at [facility];[address] | | LAB | | | | [address];[place] | | | | | | [address] | | | | + + + + + + | RBC | 1+Comment: | | EXTERNAL | | | Morphology | ANISO1+POIK2+HYPO1+TARGE | | LAB | | | | TNORMAL PLT MORPHTesting | | | | | | performed at [facility];88 | | | | | | [facility];[place], [place] | | | | | | [address] | | | | | |HYPO | | | | | |1+ | | | | | |TARGET | | | | | |NORMAL PLT MORPH | | | | | |Testing performed at [facility];[address] [place] [address];[place] [address] | | | | | | | [...] [facility];888 | mmol/L | LAB | | | | [address];[place] | | | | | | [address] | | | | + + + + + + | K | 4.1Comment: SPECIMEN | 3.5 - 4.9 | EXTERNAL | | | | SLIGHTLY | mmol/L | LAB | | | | HEMOLYZEDTesting | | | | | | performed at [facility];[address] | | | | | | [address];[place] | | | | | | [address] | | | | + + + + + + | Cl | 105Comment: Testing | 99 - 109 mmol/L | EXTERNAL | | | | performed at [facility];[address] | | LAB | | | | [address];[place] | | | | | | [address] | | | | + + + + + + | CO2 | 24Comment: Testing | 23 - 32 mmol/L | EXTERNAL | | | | performed at [facility];[address] | | LAB | | | | [address];[place] | | | | | | [address] | | | | + + + + + + | Anion Gap | 15Comment: Testing | 5 - 20 mmol/L | EXTERNAL | | | | performed at [facility];[address] | | LAB | | | | [address];[place] | | | | | | [address] | | | | + + + + + + | Glucose, | 137 (H)Comment: Testing | 65 - 99 mg/dL | EXTERNAL | | | Fasting | performed at [facility];[address] | | LAB | | | | [address];[place] | | | | | | [address] | | | | + + + + + + | BUN | 15Comment: Testing | 8 - 25 mg/dL | EXTERNAL | | | | performed at [facility];[address] | | LAB | | | | [address];[place] | | | | | | [address] | | | | + + + + + + | Creatinine | 0.96Comment: Testing | 0.50 - 1.00 | EXTERNAL | | | | performed at [facility];888 | mg/dL | LAB | | | | [address];[place] | | | | | | [address] | | | | + + + + + + | BUN/Creatin | 15Comment: Testing | | EXTERNAL | | | ine Ratio | performed at [facility];[address] | | LAB | | | | [address];[place] | | | | | | [address] | | | | + + + + + + | Calcium | 7.5 (L)Comment: Testing | 8.5 - 10.2 | EXTERNAL | | | | performed at [facility];888 | mg/dL | LAB | | | | [address];[place] | | | | | | [address] | | | | + + + + + + | Protein, | 5.2 (L)Comment: Testing | 6.3 - 8.2 g/dL | EXTERNAL | | | Total | performed at [facility];[address] | | LAB | | | | [address];[place] | | | | | | [address] | | | | + + + + + + | Albumin | 1.6 (L)Comment: Testing | 3.6 - 5.0 g/dL | EXTERNAL | | | | performed at [facility];[address] | | LAB | | | | [address];[place] | | | | | | [address] | | | | + + + + + + | Globulin | 3.7Comment: Testing | 1.3 - 4.9 g/dL | EXTERNAL | | | | performed at [facility];[address] | | LAB | | | | [address];[place] | | | | | | [address] | | | | + + + + + + | A/G Ratio | 0.4 (L)Comment: Testing | 1.0 - 2.4 | EXTERNAL | | | | performed at [facility];[address] | | LAB | | | | [address];[place] | | | | | | [address] | | | | + + + + + + | Bilirubin | 0.3Comment: Testing | 0.1 - 1.5 mg/dL | EXTERNAL | | | Total | performed at [facility];[address] | | LAB | | | | [address];[place] | | | | | | [address] | | | | + + + + + + | ALP, | 86Comment: Testing | 35 - 115 U/L | EXTERNAL | | | External | performed at [facility];[address] | | LAB | | | | [address];[place] | | | | | | [address] | | | | + + + + + + | AST | 55 (H)Comment: SPECIMEN | 10 - 45 U/L | EXTERNAL | | | | SLIGHTLY | | LAB | | | | HEMOLYZEDTesting | | | | | | performed at [facility];[address] | | | | | | [address];[place] | | | | | | [address] | | | | + + + + + + | ALT | 18Comment: Testing | 10 - 65 U/L | EXTERNAL | | | | performed at [facility];[address] | | LAB | | | | [address];[place] | | | | | | [address] | | | | + + + [...] [facility];[address] [facility] | | | | | | Blvd;[place] [address] | | | | + + + [...] RHAND | | | Testing performed at [facility];[address] | | | [facility];[place] [address] CULTURE | | | NO GROWTH | | | Testing performed at [facility], [address], [place], [place] | | | [address] | | + + + + +---------+ [...] LAB | | Testing performed at [facility];[address] [place] [address];[place] [address] MRSA PCR | | | NEGATIVE Testing performed at | | | [facility];[address] [place] [address];[place] [address] | | + + + + +---------+ [...] | | | | | [place] [address] | | | | + + + + + + | Clarity | CLEARComment: Testing | | EXTERNAL | | | | performed at [facility], [address] | | LAB | | | | [address], | | | | | | [place] [address] | | | | + + + + + + | Specific | 1.021Comment: Testing | 1.002 - 1.030 | EXTERNAL | | | [place] | performed at [facility], [address] | | LAB | | | | [address], | | | | | | [place] [address] | | | | + + + + + + | Leukocyte | NEGATIVEComment: Testing | | EXTERNAL | | | Esterase, | performed at [facility], [address] | | LAB | | | [address]rine | [address], | | | | | | [place] [address] | | | | + + + + + + | Nitrite, | NEGATIVEComment: Testing | | EXTERNAL | | | Urine | performed at [facility], [address] | | LAB | | | | [address], | | | | | | [place] [address] | | | | + + + + + + | Urobilinoge | 0.2Comment: Testing | mg/dL | EXTERNAL | | | n, Urine | performed at [facility], [address] | | LAB | | | [address], | | | | | | [place] [address] | | | | + + + + + + | Protein, | NEGATIVEComment: Testing | mg/dL | EXTERNAL | | | Urine | performed at [facility], [address] | | LAB | | | | [address], | | | | | | [place] [address] | | | | + + + + + + | pH, Urine | 6.0Comment: Testing | 5.0 - 8.0 | EXTERNAL | | | | performed at [facility], [address] | | LAB | | | | [address], | | | | | | [place] [address] | | | | + + + + + + | Blood, | NEGATIVEComment: Testing | | EXTERNAL | | | Urine | performed at [facility], [address] | | LAB | | | | [address], | | | | | | [place] [address] | | | | + + + + + + | Ketones | NEGATIVEComment: Testing | mg/dL | EXTERNAL | | | | performed at [facility], [address] | | LAB | | | | [address], | | | | | | [place] [address] | | | | + + + + + + | Bilirubin, | NEGATIVEComment: Testing | | EXTERNAL | | | Urine | performed at [facility], [address] | | LAB | | | | [address], | | | | | | [place] [address] | | | | + + + + + + | Glucose, | NEGATIVEComment: Testing | mg/dL | EXTERNAL | | | Urine | performed at [facility], [address] | | LAB | | | | [address], | | | | | | [place] [address] | | | | + + + [...] ALBICANSAbnormal | | | Testing performed at [facility], [address] [place], [place] | | | [address] | | + + + + +---------+ [...] failure | + + | Aspiration pneumonia ([facility]) Pneumonitis due to inhalation of food or vomitus | + + | COPD (chronic obstructive pulmonary disease) ([facility]) Chronic airway obstruction, not | | elsewhere [...]
--- OUTSIDE RECORDS SUMMARY | ~2019-03-09 | XMS | Encounter Summary ---
Demographics + + + | Address | [address] | | | [place] [address] | + + + | Home Phone [...] [place], [place] | | | | | [address] | | + + + + + | Cami Sawyer | ECON | Unknown | | + + + + + Care Team Providers + +------+ + | Care Commercial Stripper Name | Role | Phone | + [...] Hospital | | | | | | [place], [place] | [place], [place] | | | | | | [address] | [address] | | | | | | Phone: | Phone: | | | | | | [phone] | [phone] | | | | | | Fax: | Fax: | | | | | | [phone] | [phone] | +--------+--------+ + + + + Diagnostic [...] | | | | | | | [place], [place] | | | | | | | [address] | | | | | | | Phone: | | | | | | | [phone] | | | | | | | Fax: | | | | | | | [phone] | +--------+--------+ + + + + Diagnostic [...] | | | | LOWER | [address], | [facility] | | | | | EXTREMITY | [place] [address] | Rd Mailcode: | | | | | BILAT | Phone: | [phone] | | | | | | [phone] | Physician's | | | | | | Fax: | Pavilion | | | | | | [phone] | [place], [place] | | | | | | | [address] | | | | | | | Phone: | | | | | | | [phone] | | | | | | | Fax: | | | | | | | [phone] | +--------+--------+ + + + + Diagnostic [...] | | | | | | | [place], [place] | | | | | | | [address] | | | | | | | Phone: | | | | | | | [phone] | | | | | | | Fax: | | | | | | | [phone] | +--------+--------+ + + + + Diagnostic [...] | | | Dariela Saab MD | [facility] [address] | | | | | TRANSTHORACI | | [address] | | | | | C | | [address] | | | | | ECHOCARDIOGR | | Mailcode: | | | | | AM, ADULT | | [address] | | | | | | | Rome[address] | | | | | | | [facility] | | | | | | | [place], [place] | | | | | | | [address] | | | | | | | Phone: | | | | | | | [phone] | +--------+--------+ + + + + Diagnostic [...] ARTER DUPLEX | [address] | [facility] | | | | | [facility] | [facility] [place], | [facility] | | | | | EXTREMITY | [place] [address] | Rd Mailcode: | | | | | BILATERAL | Phone: | [phone] | | | | | COMPLETE | [phone] | Physician's | | | | | | Fax: | Pavilion | | | | | | [phone] | [place], [place] | | | | | | | [address] | | | | | | | Phone: | | | | | | | [phone] | | | | | | | Fax: | | | | | | | [phone] | +--------+--------+ + + + + Diagnostic [...] | | | | DUPLEX | [address], | [facility] | | | | | COMPLETE | [place] [address] | Rd Mailcode: | | | | | BILATERAL | Phone: | [phone] | | | | | | [phone] | Physician's | | | | | | Fax: | Pavilion | | | | | | [phone] | [place], [place] | | | | | | | [address] | | | | | | | Phone: | | | | | | | [phone] | | | | | | | Fax: | | | | | | | [phone] | +--------+--------+ + + + + Diagnostic [...] | | | | | | | [place], [place] | | | | | | | [address] | | | | | | | Phone: | | | | | | | [phone] | | | | | | | Fax: | | | | | | | [phone] | +--------+--------+ + + + + Diagnostic [...] | | | | | | | [place], [place] | | | | | | | [address] | | | | | | | Phone: | | | | | | | [phone] | | | | | | | Fax: | | | | | | | [phone] | +--------+--------+ + + + + Reason [...] + + | 03/12/ | Hospital | [facility] [address] | Do [place], | | | 2011 - | Encounter | [address] | [address] | | | | | [address] [facility] | [facility] [place] | | | 04/01/ | | [place], [place] | [address] | | | 2011 | | [address] | [phone] | | | | | [phone] | | | | | | | Chary Doherty, | | | | | | [address] | | | | | | [address] | | | | | | [place], [place] | | | | | | [address] | | | | | | [phone] | | | | | | | | | | | | Xin Rust | | | | | | MD Nena [address] [facility] | | | | | | [facility] | | | | | | [place], [place] | | | | | | [address] | | | | | | [phone] | | | | | | | | | | | | Osbaldo Garcia MD | | | | | | [address] [facility] | | | | | | [facility], | | | | | | [place] [address] | | | | | | [phone] | | | | | | | [...] thrombi: the patient was admitted to [facility] from [facility] because she presented wit h nausea, bilious vomiting and was found by CT scan to have bowel wall thickening, 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 At arrival to [facility] it was learned that she did NOT [...] was agreed that the patient needed a handle maker treatment and we settled o n remicade. 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 Go to the hospital on [...] forming. Please call your GI doctor in [facility] to arrange for your second [...] whether or not the INR is truly admissions representative of anticoagulation. In patients with APLA [...] MD [facility] DEPARTMENT: [id number]- [facility] Faculty PPV Place of Service:- Inpatient Date of Service: 04/01/2012 CSN: [id number] Suggested Modifier: GC Resident Involved: Yes Suggested CPT: 08729- Dishcarge < 30 min Electronically signed by [...] questions. Debi Oconnor MD GI/Hepatology Fellow Pager: [phone] INTERVAL HISTORY: MRI abdomen shows no abscess; [...] risk of emboli, I called Dr. Rodriges (systems integration engineer for her PCP) to coordinate f/u of [...] RUST MD [facility] DEPARTMENT: [id number]- [facility] Faculty PPV Place of Service:- Inpatient Date of Service: 03/31/2012 CSN: [id number] Suggested Modifier: Resident Involved: Yes Suggested CPT: 31442- Subsequent, Detailed/high complex, 35 min Davonte De [...] state: J Gastroenterol. 2004 Jan;39(10):948-54. PubMed PMID: [id number]. Consulted [facility] for further studies on platelet inhibitor and [...] no insurance. Wanting to go home for [employer]. Nurse repor ts that she has admitted [...] income that does not q ualify for [employer] ([email or web address]). F/E/N Thrombosis ppx: Warfarin, Lovenox bridge Glucose: not indicated Diet: regular Code: Do Not Resuscitate/Do Not Intubate This patient was seen with GM3, refer to Attending and Resident notes for assessment and pl an. Nuñez Vulcan, Sub-Cutter And Edge Trimmer Pgr: [phone] Ajay De La Rosa MD - 03/30/2012 [...] d/c until coumading therapeutic with director of critical care through medication assistance program Hypoalbuminemia (03/14/2012) Assessment: [...] MD [facility] DEPARTMENT: [id number]- [facility] Faculty PPV Place of Service:- Inpatient Date of Service: 03/30/2012 CSN: [id number] Suggested Modifier: Resident Involved: Yes Suggested CPT: 56068- Subsequent, Detailed/high complex, 35 min Debi Yepez [...] follow closely Shaun SAEED GI Fellow Pg [phone] signed by Debi Oconnor MD at 03/30/2012 5:32 PM PSTCrlamin, Jacoby Barrett MD - 03/30/2012 10:25 AM PSTFormatting of this note might be different from the origi nal. [facility] DEPARTMENT OF SURGERY Daily Progress [...] concerns. Jacoby Tovar MD Surgery, R2 Diagnoses: [id number] Crohn disease This assessment and plan was [...] state: J Gastroenterol. 2004 Jan;39(10):948-54. PubMed PMID: [id number]. Consulted Heme for further studies on platelet [...] this note might be different from the [facility] l. Transfer Accept Note Patient: Mackenzie Hartley [...] Nathan Weeks MD Internal Medicine PGY1 Pager [phone] ecilia Toney MD - 03/29/2012 6:37 PM [...] team. Debi Oconnor MD GI Fellow Pager [phone] signed by Debi Oconnor MD at 03/29/2012 [...] planning) Debi Oconnor MD Fellow, Gastroenterology pager: [phone] signed by Debi Oconnor MD at 03/29/2012 [...] for this encounter. OSBALDO GARCIA MD [facility] [address] [place] [address] Andrew Shah MD - 10:41 AM PST [facility] DEPARTMENT OF SURGERY Daily Progress [...] GI Jacoby Tovar MD Surgery, R2 Diagnoses: [id number] Crohn disease This assessment and plan was [...] provided conscious sedation. OSBALDO GARCIA MD [facility] [address] [place] [address] I spent 35 min in critical care (not including procedures) [facility] DEPARTMENT: MICU, [facility]- [id number] Place of Service: Date of Service: 03/29/2012 CSN: [id number] Modifiers:GC Resident Involved: yes Suggested CPT: 78376 Critical Care, Initial 30-74 minutes Carlton Godwin [...] day of transfer to MICU (1 05/29/11), center surgery informed us that according to the [...] 0659 03/29/12 07 - 03/30/12 0659 Shift 8190-7816 6974-6950 7336-6745 Daily Total 1640-9091 8740-5257 7147-4467 Daily Total I N T A K E P.O. 1750 2525 4275 I.V. 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 Debi Oconnor MD GI/Hepatology Fellow Pager: [phone] INTERVAL HISTORY: Episode of melena last night [...] in the past. OSBALDO GARCIA MD [facility] [address] [address] I spent 35 min in critical care (not including procedures) [facility]: [facility]- [id number] Place of Service: Date of Service: 03/28/2012 CSN: [id number] Modifiers:GC Resident Involved: yes Suggested CPT: 56185 Critical Care, Initial 30-74 minutes Carlton Godwin [...] 03/28/12 0659 03/28/12699 - 03/29/12 0659 Shift 6327-7872 7052-1399 1870-7824 Daily Total 9209-6669 3392-1123 0924-9159 Daily Total I N T A K E P.O. 240 300 540 I.V. 404 404 934 934 Blood 1300 1300 Shift Total 152 969 1463 2244 934 934 O U T P [...] Gross for the last 16 days Intake 98313 ml Output 70746 ml Net since Admission -93131 ml Physical Exam: General Appearance: tearful middle [...] Carlton Betancourt DO PGY-1 Internal Medicine Pager [phone] Andrew Shah MD - 6:52 AM PST [...] Sukumar Zuniga DO Internal Medicine PGY-2 Pg [phone] Davonte De La Rosa MD - 03/27/2012 [...] MD [facility] DEPARTMENT: [id number]- [facility] Faculty PPV Place of Service:- Inpatient Date of Service: 03/27/2012 CSN: [id number] Suggested Modifier: GC Resident Involved: Yes Suggested CPT: 00856- Subsequent, Detailed/high complex, 35 min Marely Mccann [...] formulated with gastroenterology at [facility], Dr. Hennessy. Please call with any questions. Debi Oconnor MD GI/Hepatology Fellow Pager: [phone] INTERVAL HISTORY: Imaging reviewed with radiology; too [...] Dung Victor - 2 11:30 AM PST LAST CHALKER NOTE: Visited with Patient. 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 Trade Show Coordinator team will follow as needed. Chaplain Dung Riley M.Div., [facility] 0-1986 Pager #[phone]; #[phone] Xin De La Rosa MD - 7:31 [...] J Gastroenterol. 2004 Jan;39(10):948-54. PubMed PMID: [id number]. Consulted Heme for further studies on platelet [...] an. 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 Raphael Norman MD Internal Medicine, PGY-2 [id number] Xin De La Rosa MD - 03/25/2012 [...] persists - not larger Resident spoke with human resources vice president who spoke with staff - [...] taking more PO if still low ask missile inspector preflight to see Hypophosphatemia (03/14/2012) Assessment: rechecked and [...] MD [facility] DEPARTMENT: [id number]- [facility] Faculty PPV Place of Service:- Inpatient Date of Service: 03/25/2012 CSN: [id number] Suggested Modifier: GC Resident Involved: Yes Suggested CPT: 28909- Subsequent, Detailed/high complex, 35 min oaquin Rivera [...] J Gastroenterol. 2004 Jan;39(10):948- 54. PubMed PMID: [id number]. Consulted Heme for further studies on platelet [...] income that does not qualif y for [employer] ([email or web address]) F/E/N Thrombosis ppx: Warfarin Glucose: not indicated Diet: regular Code: Do Not Resuscitate/Do Not Intubate This patient was seen with GM3, refer to Attending and Resident notes for assessment and pl an. ---- Joaquin Rivera, MS4 Pager # [phone] Ajay De La Rosa MD - 03/24/2012 [...] drainage of abscess and coordination of care [facility] radiology reviewing perirectal abscess imaging, options for [...] RUST MD [facility] DEPARTMENT: [id number]- [facility] Faculty PPV Place of Service:- Inpatient Date of Service: 03/24/2012 CSN: [id number] Suggested Modifier: GC Resident Involved: Yes Suggested CPT: 06407- Subsequent, Detailed/high complex, 35 min Davonte De [...] J Gastroenterol. 2004 Jan;39(10):948- 54. PubMed PMID: [id number]. Consulted Heme for further studies on platelet [...] an. ---- Joaquin Rivera MS4 Pager # [phone] Ajay De La Rosa MD - 03/23/2012 [...] RUST MD [facility] DEPARTMENT: [id number]- [facility] Faculty PPV Place of Service:- Inpatient Date of Service: 03/23/2012 CSN: [id number] Suggested Modifier: AKHIL Resident Involved: Yes Suggested CPT: 61405- Subsequent, Detailed/high complex, 35 min Davonte De [...] to be done today JERI DIAZ MD [address] [facility] [address] [place] [address] Xin De La Rosa MD - 03/23/2012 [...] state: J Gastroenterol. 2004 Jan;39(10):948-54. PubMed PMID: [id number]. Consulted Heme for further studies on platelet [...] has income that does not qualify for [employer] ([email or web address]) F/E/N Thrombosis ppx: Warfarin Glucose: not indicated Diet: regular Code: Do Not Resuscitate/Do Not Intubate This patient was seen with GM3, refer to Attending and Resident notes for assessment and pl an. ---- Joaquin Rivera, MS4 Pager # [phone] Ajay De La Rosa MD - 03/22/2012 10:50 PM [facility] Internal Medicine Attending Interval note Hospital [...] RUST MD [facility] DEPARTMENT: [id number]- [facility] Faculty PPV Place of Service:- Inpatient Date of Service: 03/22/2012 CSN: [id number] Suggested Modifier: GC Resident Involved: Yes Suggested CPT: 40348- Subsequent, Detailed/high complex, 35 min ox, Jeri [...] duplex ordered today JERI DIAZ MD [facility] [address] [place] [address] Xin De La Rosa MD - 03/22/2012 [...] 03/20/12 202 1 NA -- 141 @ [facility] -- 142 139 K [...] PTT in mixing 1:1 Neg cardiolipin, neg mrdr-T-quwbhryindhd Legionella Agg Urine pending Cultures: BLOOD CULTURE [...] barber: J Gastroenterol. 2004 Jan;39(10):948-54. PubMed PMID: [id number]. - Consult Heme for further studies on [...] an. ---- Joaquin Rivera, 4 Pager # [phone] Ajay De La Rosa MD - 03/21/2012 10:41 PM [facility] Internal Medicine Attending Interval note Hospital [...] BP 142/76 | Pulse 106[sinus tach per telegraphic typewriter operator chief[ | Temp 37.7 C (99.9 [...] with pharmD. [facility] DEPARTMENT: [id number]- [facility] Faculty PPV Place of Service:- Inpatient Date of Service: 03/21/2012 CSN: [id number] Suggested Modifier: GC Resident Involved: Yes Suggested CPT: 54587- Subsequent, Detailed/high complex, 35 min Jennifer Tolentino [facility] - 03/21/2012 12:38 PM PST [...] Female with multiple complex medical problems; [facility] Vascular Surge ry consulted due to Right [...] new baseline Ok to discharge per [facility] V[facility] Surgeons once ambulating and medical issues are stable. Will continue to follow while in patient. [facility], [facility] [address], phone number [phone] Please schedule followup appointment within 2-3 weeks of surgery for wound check. Dr. Sukumar Salgado, [facility] Attending. MERT OLIVA [facility] VASCULAR SURGERY [address] [place] [address] ham, Moses Asher MD - 03/21/2012 6:55 [...] w ill need to establish care with chief design engineer so that further treatment options can be [...] assessment and plan. Moses Anthony MD Neurology Cutter And Edge Trimmer Pager [phone] oaquin Rivera - 02/2012 6:55 AM PST [...] an. ---- Joaquin Rivera, MS4 Pager # [phone] Xin De La Rosa M D - [...] MD [facility] DEPARTMENT: [id number]- [facility] Faculty PPV Place of Service:- Inpatient Date of Service: 03/20/2012 CSN: [id number] Suggested Modifier: Resident Involved: Yes Suggested CPT: 94468- Subsequent, Detailed/high complex, 35 min Jennifer Tolentino [facility] - 03/20/2012 3:36 PM PST [...] Female with multiple complex medical problems; [facility] Vascular Surge ry consulted due to Right [...] chair as tolerated, RLE WBAT -Please obtain [facility] Lab Arterial duplex ultrasound/DELORIS of both legs prior to discharge as n ew baselineObtain ABIs with waveforms To establish new blood-flow baseline Ok to discharge per [facility] Surgeons once ambulating and medical issues are stable. Will continue to follow while in patient. [facility], [facility] [address], phone number [phone] Please schedule followup appointment within 2-3 weeks of surgery for wound check. Dr. Sukumar Salgado, [facility] V[facility] Surgery Attending. MERT OLIVA [facility] VASCULAR SURGERY [address] [place] [address] Raphael Osorio - 7:58 AM PSTI agree with the assessment and plan as it is stated in the note by Mariely Rivera, MS4 Mrs. Hartely continued to have fevers today with intermittent [...] plan. Raphael Norman MD Internal Medicine, PGY-2 [id number] oaquin Rivera - 2011 7:58 AM PST [...] an. ---- Joaquin Rivera, MS4 Pager # [phone] Juma Pimentel MD - 12/2011 3:35 PM [...] pink, warm and dry. Minimal edema. site [facility] no FARRUKH, c/d/i. Pulse/signal exam: RLE with [...] capsule 250 mg, 250 mg, Oral, Q6H, oMses Asher MD, 250 mg at 1212/21 1514 [...] is Dr. Salgado. JUMA CARRINGTON MD [facility] [address] [place] [address] Chary Moore M D - 03/19/2012 9:14 [...] note from 03/14 for details. Therefore the kuvj-lkbh-ophrn plan givens s been to allow her [...] Lovenox bridge to be covered by [facility]. 9) Occlusive thrombus 10) Hypoalbuminemia 11) Hypophosphatemia 12) TIA (transient ischemic attack) - with PFO 13) PFO (patent foramen ovale) - plan is for lifelong coumadin. No additional benefit from device closure per CLOSURE I trial. Chary Doherty MD Chief Resident, Internal Medicine Pager: [phone] [facility] DEPARTMENT: Hosp- [id number] Place of Service: Date of Service: 03/19/2012 CSN: [id number] Modifiers:GC Resident Involved: Yes Suggested CPT: 82258 Subsequent Visit Detailed/High complexity 35 min I [...] will need to establish c are with chief design engineer so that further treatment options can be [...] assessment and plan. Moses Anthony MD Neurology Cutter And Edge Trimmer Pager [phone] ose Antonio Toney MD - 03/18/2012 1:01 [...] outpt GI, plans to establish care in [place], perhaps Dr. Byrd. Transitioning to PO meds, [...] attack) 12) PFO (patent foramen ovale) Chary Dhoerty MD Chief Resident, Internal Medicine Pager: [phone] [facility] DEPARTMENT: Hosp- [id number] Place of Service: Date of Service: 03/18/2012 CSN: [id number] Modifiers: Resident Involved: Yes Suggested CPT: 30389 Subsequent Visit Exp Prob Foc/Mod Complexity 25 [...] Date 03/18/12 07 - 03/19/12 0659 Shift 3471-9626 6828-8631 4167-3867 24 Hour Total I N T A K E P.O. 620 620 I.V. 20 20 40 Shift Total 640 20 660 O U T P U T Urine 675 100 775 Other 400 400 Shift Total 045 056 9200 Weight (kg) 74.1 74.1 74.1 74.1 General: [...] refusing). Will need to establish care with chief design engineer so that further treatment options can be [...] in MS4 note. Moses Anthony MD Neurology Cutter And Edge Trimmer Pager [phone] signed by Moses Asher MD at 03/18/2012 9:50 PM [facility] Rivera - 03/18/2012 9:18 AM PST Medicine [...] for assessment and pl an. ---- Joaquin Vulcan, MS4 Pager # [phone] Chary Moore MD - 03/17/2012 8:39 PM [...] refusing). Will need to establish care with chief design engineer so this can be discussed as outpt [...] Doherty MD Chief Resident, Internal Medicine Pager: [phone] [facility] DEPARTMENT: Hosp- [id number] Place of Service: IP - Date of Service: 03/17/2012 CSN: [id number] Modifiers:GC Resident Involved: Yes Suggested CPT: 41433 Subsequent Visit Detailed/High complexity 35 min I [...] end of case. MIRELA SALGADO MD [facility] [address] [address]/kpy[address] [place] [id number] ham, Gloria Lawson MD - 1 05/18/2011 [...] until she's therapeutic with her coumadin and [facility] has agreed to provide discounted INR checks [...] y Gloria Anthony MD Neurology PGY1 Pager: [phone] Joaquin Hui - 10/2011 7:19 AM PST [...] an. ---- Joaquin Rivera, MS4 Pager # [phone] Chary Moore MD - 03/16/2012 12:56 PM [...] Doherty MD Chief Resident, Internal Medicine Pager: [phone] [facility] DEPARTMENT: Hosp- [id number] Place of Service: - Date of Service: 03/16/2012 CSN: [id number] Modifiers:GC Resident Involved: Yes Suggested CPT: 76316 Subsequent Visit Exp Prob Foc/Mod Complexity 25 min and 12777 Subseque nt Visit Detailed/High complexity 35 min [...] Day:4 Author; GLORIA ANTHONY MD Attending Physician: hCary Doherty MD Interval Hx: -Hematology signed off, [...] DNR/DNI Gloria Anthony MD Neurology PGY-1 Pager [phone] The patient was seen and discussed with [...] Doherty MD Chief Resident, Internal Medicine Pager: [phone] [facility] DEPARTMENT: Hosp- [id number] Place of Service: - Date of Service: 03/15/2012 CSN: [id number] Modifiers:GC Resident Involved: Yes Suggested CPT: 75335 Subsequent Visit Detailed/High complexity 35 min Dariela [...] plan. Dariela Santoyo MD Internal Medicine PGY-3 [phone] Daryl Singleton MD - 08/2011 7:18 PM PSTHematology Attending Consult Note: I saw and examined Ms. Hartley with the Hematology Fellow, Dr. Anthony Camejo and Ana Parish the 5A Medicine unit. I participated in the gunter components of today's [facility] pital visit including review of the [...] Hematology Oncology [facility] DEPARTMENT: [id number]- HEM FACULTY [facility] Place of Service: - Inpatient Date of Service: 03/15/2012 Modifiers: GC - Resident Involved Suggested CPT: 35478 - Subsequent, Detailed/High complex 35 min raAnthony [...] clinic f/u closely; our clinic at [facility] cannot provide any suppli es -anticoagulation with [...] as above. MD Hematology/Oncology Fellow Pager # [phone] signed by Daryl Arteaga MD at 03/15/2012 [...] with any questions. Bigg Robles, R1 Pager: [phone] INTERVAL HISTORY: - NAEO - VSS, AF [...] to pro ceed. Mirela Samano M.D. [facility] V[facility] Surgery [address] [place] [address], [place] [phone] Email: [email or web address] Sandoval Ko MD - 03/15/2012 9:30 [...] off to day. Jacoby Tovar MD Surgery [id number] signed by Sandoval Tovar MD at 03/15/2012 [...] monitor Gloria Anthony MD Neurology PGY1 Pager [phone] Daryl Singleton MD - 07/2011 4:57 PM PSTHematology Attending Consult Note: I saw and examined Ms. Hartley with the Hematology Fellow, Dr. Anthony Camejo in the [address] [place] [address] unit. I participated in the gunter components [...] Hematology Oncology [facility] DEPARTMENT: [id number] FACULTY [facility] Place of Service: - Inpatient Date of Service: 03/14/2012 Modifiers: GC - Resident Involved Suggested CPT: 18260 - Subsequent, Detailed/High complex 35 min Anthony [...] as above. MD Hematology/Oncology Fellow Pager # [phone] signed by Daryl Arteaga MD at 03/14/2012 [...] really for treatment Recommendations communicated with [facility] research program internship. We will continue to follow. This plan was discussed and formulated with gastroenterology at [facility], Dr. Casiano. Please call with any questions. Bigg Robles, R1 Pager: [phone] Attending Attestation: I personally interviewed the patient, [...] She may follow-up wit h her local chief design engineer or may follow up with me at [facility] if she wishes to consider di fferent evaluation or treatment. Gopal Casiano MD Polisher Numeralprocess control engineer Department of Gastroenterology INTERVAL HISTORY: - NAEO [...] Reviewed outside imaging with radiologist at [facility] and CT abd and pelvis shows 2 [...] Becca Moncada MD General Surgery, R2 Pager: [phone] [facility] Staff I saw and evaluated the patient. I agree with the findings and the plan of care as jannie hair in the resident s note. Left foot warm and well perfused. Patient pain-free. Will repe at CTA to see if there has been any thrombus progression. No urgent need for surgery on left leg at this point. Mirela Samano M.D. [facility] Vascular Surgery [address] [place] [address], [address] [phone] Email: [email or web address] Irene Aguilera MD - 03/14/2012 3:52 [...] OSH. 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 She also had leukocytosis to 45 with a left shift, anemia, and thrombocytosis (platelets to 759). Her abdominal exam was not acute and she remained hemodynamically stable. Transferre d to [facility] for possible thrombectomy, initiated heparin therapy, and [...] were obscured by overlying bowel gas. The [id number] left external iliac arteries appear patent with [...] CARLOS A EPPS MD R2, General Surgery [facility] 03/13/2012 1:20 PM Current Facility-Administered Medications Medication [...] Becca Moncada MD General Surgery, R2 Pager: [phone] Vascular Staff I saw and evaluated the [...] a later time. Mirela Samano M.D. [facility] [address] [place] [address], [address] [address] Email: [email or web address] Richie Goodman MD - 06/2011 11:15 AM PSTI was present and rounded with the PROJECT CREW WORKER today. I interviewed and examined the patient. I reviewed the history, as documented today. I agree with the PROJECT CREW WORKER's assessmen t and plan. Pt is stable [...] visceral and aortic thrombus transfer red from [facility] last night with concerns for ischemic bowel. [...] celiac arteries who was transferred to [facility] for management o f vascular disease and possible bowel ischemia. No evidence of bowel ischemia, bowel thicken ing likely Crohn's flare. 1. Crohn's flare: GI consult. Consider transfer to medicine for crohn's management with [facility] following 2. Multivessel occlusions/thrombii: vascular surgery [...] Her abdominal exam does not reveal peritonitis. [facility] ular surgery recommended a heparin drip given her subtherapeutic INR. Hematology will be con sulted for her leukocytosis and declining platelet count in the setting of heparin therapy. Gastroenterology is making recommendations regarding acute management of her Crohn's disease . She will no longer require ICU care and she will transfer to the general medicine service. Jf Wiseman MD FACS sole rounding machine operator Division of Trauma, Critical Care, and Acute Care Surgery [phone] documented in this e ncounter Plan of [...] [facility] | [address] | [place] [address] | | | SERVICES, CORE | PARK [...] [facility] | [address] | [place] [address] | | | SERVICES, CORE | PARK [...] + + + + + | [facility] | [address] | [place] [address] | | | ARON, CORE | [address] | | | + + + + + MAGNESIUM, PLASMA (03/31/2012 3:58 AM PST) + +-------+ + + + | Component | Value | Ref Range | Performed | Pathologist | | | | | At | Signature | + +-------+ + + + | MAGNESIUM,P | 1.9 | 1.8 - 2.5 mg/dL | [facility] | | | [facility] | | | [...] + + + + + | [facility] | [address] | [place] [address] | | | SERVICES, CORE | PARK [...] [facility] | [address] | [place] [address] | | | SERVICES, JANELL | PARK [...] | + +---------+ + + | [facility] DEPARTMENT OF | | | | | [...] [facility] | [address] | [place] [address] | | | SERVICES, CORE | PARK [...] [facility] | [address] | [place] [address] | | | SERVICES, CORE | PARK [...] + | [facility] | [address] | [place] [address] | | | SERVICES, CORE | PARK [...] + + + + + | [facility] | [address] | [place] [address] | | | SERVICES, CORE | PARK [...] | + + + + + | [facility] | [address] | [place] [address] | | | SERVICES, CORE | PARK [...] [facility] | [address] | [place] [address] | | | SERVICES, CORE | KRISTEN [...] [facility] | [address] | [place] [address] | | | SERVICES, CORE | KRISTEN [...] [facility] | [address] | [place] [address] | | | SERVICESJANELL | [address] [...] + | [facility] | [address] | [place] [address] | | | [place] | | | [...] + | [facility] | [address] | [place] [address] | | | [place] | | | [...] + | [facility] | [address] | [place] [address] | | | [place] | | | [...] | + + + + + | [facility] | [address] | [place] [address] | | | SERVICES, CORE | PARK [...] [facility] | [address] | [place] [address] | | | SERVICES, CORE | [...] + + + + + | [facility] | [address] | [place] [address] | | | SERVICES, CORE | KRISTEN [...] [facility] | [address] | [place] [address] | | | SERVICES, CORE | KRISTEN [...] [facility] | [address] | [place] [address] | | | PATHOLOGY | [address] [...] [facility] | [address] | [place] [address] | | | SERVICES, JANELL | KRISTEN [...] + | [facility] | [address] [facility] | [place] [address] | | | SERVICES, CORE | KRISTEN [...] [facility] | [address] | [place], [place] | | | [facility] | [address] | [address] | | | TESTS | | | [...] [facility] | [address] | [place] [address] | | | SERVICES, CORE | PARK [...] [facility] | [address] | [place] [address] | | | SERVICES, CORE | PARK [...] [facility] | [address] | [place] [address] | | | SERVICES, CORE | KRISTEN [...] [facility] | [address] | [place], [place] | | | [facility] | [address] | [address] | | | TESTS | | | [...] [facility] | [address] | [place] [address] | | | SERVICES, CORE | KRISTEN [...] LAB[facility]ATORY | [address] | [place] [address] | | | SERVICES, CORE | KRISTEN [...] + + | [facility] | [address] [facility] | [place] [address] | | | SERVICES, CORE | PARK [...] [facility] | [address] | [place] [address] | | | SERVICES, JANELL | [address] | | | + + + + + X-RAY PORTABLE CHEST 1 VIEW (03/28/2012 6:28 AM PST) + + + + + + | Component | Value | Ref Range | Performed | Pathologist | | | | | At | Signature | + + + + + + | X-RAY | STUDY: TN CHEST 1 VIEW | | | | [...] + + + + | PRODUCT | [id number] | | [facility] | | | UNIT [...] + + + + | BLOOD | [id number] | | [facility] | | | PRODUCT [...] [facility] | [address] | [place] [address] | | | PATHOLOGY | [address] [...] + + + + | PRODUCT | [id number] | | [facility] | | | UNIT [...] + + + + | BLOOD | [id number] | | [facility] | | | PRODUCT [...] DEPARTMENT OF | [address] | [place] [address] | | | PATHOLOGY | [address] [...] | 60 - 99 mg/dL | [facility] - | | | GLUCOSE, | | [...] + + + | [facility] | [address] | [place], [place] | | | [facility] | [address] | [address] | | | TESTS | | | [...] [facility] | [address] | [place] [address] | | | SERVICES, CORE | KRISTEN [...] view image for the detailed interpretation from Appota results. | CARDIOLOGY | + + + + + + + + | Performing | Address | City/State/Zipcode | Phone Number | | Organization | | | | + + + + + | [facility] | [address] | [place], [place] | | | CARDIOLOGY | [address] | [address] | | + + + + + [...] [facility] | [address] | [place] [address] | | | SERVICES, CORE | KRISTEN [...] + + + + | PRODUCT | [id number] | | [facility] | | | UNIT [...] + + + + | BLOOD | [id number] | | [facility] | | | PRODUCT [...] DEPARTMENT OF | [address] | [place] [address] | | | PATHOLOGY | [address] [...] + + + + | PRODUCT | [id number] | | [facility] | | | UNIT [...] + + + + | BLOOD | [id number] | | [facility] | | | PRODUCT [...] + + + + + | [facility] | [address] | [place] [address] | | | PATHOLOGY | [address] [...] [facility] | [address] | [place] [address] | | | SERVICES, AJNELL | [address] | | | + [...] [facility] | [address] | [place] [address] | | | SERVICES, CORE | PARK [...] + + + + + | [facility] | [address] | [place] [address] | | | SERVICES, CORE | PARK [...] [facility] | [address] | [place] [address] | | | SERVICES, CORE | PARK [...] [facility] | [address] | [place] [address] | | | SERVICES, | [address] [...] + + + + + | [facility] | [address] | [place] [address] | | | SERVICES, | [address] [...] + + + + | PRODUCT | [id number] | | [facility] | | | UNIT [...] + + + + | BLOOD | 75311 | | [facility] | | | PRODUCT [...] + + + + + | [facility] DEPARTMENT [facility] | [address] | [place] [address] | | | PATHOLOGY | [address] [...] + + + + | PRODUCT | [id number] | | [facility] | | | UNIT [...] + + + + | BLOOD | 58286 | | [facility] | | | PRODUCT [...] + + + + + | [facility] | [address] | [place] [address] | | | PATHOLOGY | [address] [...] [facility] | [address] | [place] [address] | | | SERVICES, CORE | KRISTEN [...] [facility] | [address] | [place] [address] | | | SERVICES, CORE | KRISTEN [...] [facility] | [address] | [place] [address] | | | SERVICES, CORE | PARK [...] + + + + + | [facility] | [address] | [place] [address] | | | JANELL SHARP | [address] [...] + + | [facility] | [address] [facility] | [place] [address] | | | SERVICES, CORE | KRISTEN [...] [facility] | [address] | [place] [address] | | | SERVICES, CORE | PARK [...] [facility] | [address] | [place] [address] | | | SERVICES, CORE | KRISTEN [...] [facility] | [address] | [place] [address] | | | SERVICES, CORE | KRISTEN [...] [facility] | [address] | [place] [address] | | | SERVICES, CORE | PARK [...] [facility] | [address] | [place] [address] | | | SERVICES, CORE | PARK [...] + + + + + | [facility] | [address] | [place] [address] | | | SERVICES, CORE | KRISTEN [...] [facility] | [address] | [place] [address] | | | SERVICES, CORE | KRISTEN [...] + + + + + | [facility] | [address] [facility] | [place] [address] | | | SERVICES, CORE | KRISTEN [...] + + + + + | [facility] | [address] | [place] [address] | | | SERVICES, CORE | PARK [...] [facility] | [address] | [place] [address] | | | SERVICES, CORE | KRISTEN [...] oral, | | | | | | [id number] hrs | | | | | | [...] [facility] | [address] | [place] [address] | | | SERVICES, CORE | PARK [...] [facility] | [address] | [place] [address] | | | SERVICES, CORE | KRISTEN [...] | + + + + + | [facility] | [address] | [place] [address] | | | JANELL SHARP | [address] [...] + + + + + | [facility] | [address] [facility] | [place] [address] | | | SERVICES, CORE | KRISTEN [...] + + + + + | [facility] | [address] | [place] [address] | | | SERVICES, CORE | KRISTEN [...] | | | | Final | | [place] | | | | CULTURE RESULT:< 10,000 [...] + | [facility] | [address] | [place] [address] | | | [place] | | | | + + + [...] | + + + + + | [facility] | [address] | [place] [address] | | | SERVICES, CORE | KRISTEN [...] [facility] | [address] | [place] [address] | | | SERVICES, CORE | PARK [...] + + + + + | [facility] | [address] | [place] [address] | | | SERVICES, CORE | [address] | | | + + + + + CULTURE, BLOOD BACTI & YEAST [facility] (03/23/2012 11:22 PM PST) + + + [...] [facility] | [address] | [place] [address] | | | SERVICES, CORE | KRISTEN [...] view image for the detailed interpretation from [employer]ota results. | CARDIOLOGY | + + + + + + + + | Performing | Address | City/State/Zipcode | Phone Number | | Organization | | | | + + + + + | [facility] | [address] | [place], [place] | | | CARDIOLOGY | [address] | [address] | | + + + + + [...] | + +---------+ + + | [facility] DEPARTMENT OF | | | | | [...] [facility] | [address] | [place] [address] | | | SERVICES, CORE | PARK [...] [facility] | [address] | [place] [address] | | | SERVICES, CORE | PARK [...] + + + + + | [facility] | [address] | [place] [address] | | | SERVICES, JANELL | KRIST[address] [...] + | [facility] | [address] [facility] | [place] [address] | | | SERVICES, CORE | PARK [...] | | [facility],[address] [place] [address] | | | | | | [facility], [place] [address] | | | | | | [phone]. | | | | | | keith, Kaitlin Lau, | | | | | | , Lab. Director | | | | + + + + + + + + | Specimen | + + | Urine - Urine | + + + + + + + | Performing | Address | City/State/[facility] | Phone Number | | Organization | | | | + + + + + | [facility] | [address] | [place], [place] | | | [facility] | | [address] | | + + + + + [...] [facility] | [address] | [place] [address] | | | SERVICES, CORE | KRISTEN [...] Libby | | | | | | Tiffaine, M.D. I have | | | | [...] [facility] | [address] | [place] [address] | | | ARON, JANELL | KRI[address] [...] [facility] | [address] | [place] [address] | | | SERVICES, JANELL | [address] [...] | | | | | XIN GARZON (4927) | | | | | | on 03/22/2012 4:25:06 PM | | | | + + + + + + + + | Specimen | + + | | + + + + + | Narrative | Performed At | + + + | Please click | [facility] | | on view image for the detailed interpretation from [employer] results. | CARDIOLOGY | + + + + + + + + | Performing | Address | City/State/Zipcode | Phone Number | | Organization | | | | + + + + + | [facility] | [address] [facility] | [place], [place] | | | CARDIOLOGY | [address] | [address] | | + + + + + [...] [facility] | [address] | [place], [place] | | | [facility] | [address] | [address] | | | TESTS | | | [...] | 60 - 99 mg/dL | [facility] - | | | GLUCOSE, | | [...] [facility] | [address] | [place], [place] | | | [facility] | [address] | [address] | | | TESTS | | | [...] + + + + + | [facility] | [address] [facility] | [place] [address] | | | SERVICES, CORE | KRISTEN [...] + + + + + | [facility] | [address] | [place] [address] | | | JANELL SHARP | P[address] [...] + + + + + | [facility] | [address] [facility] | [place] [address] | | | SERVICES, JANELL | KRISTEN [...] [facility] | [address] | [place] [address] | | | SERVICES, CORE | PARK [...] [facility] | [address] | [place] [address] | | | SERVICES, CORE | KRISTEN [...] [facility] | [address] | [place], [place] | | | [facility] | [address] | [address] | | | TESTS | | | [...] [facility] | [address] | [place] [address] | | | SERVICES, CORE | KRISTEN [...] [facility] | [address] | [place], [place] | | | [facility] | [address] | [address] | | | TESTS | | | [...] view image for the detailed interpretation from [employer] results. | CARDIOLOGY | + + + + + + + + | Performing | Address | City/State/Zipcode | Phone Number | | Organization | | | | + + + + + | [facility] | [address] | [place], [place] | | | CARDIOLOGY | [address] | [address] | | + + + + + [...] [facility] | [address] | [place], [place] | | | [facility] | [address] | [address] | | | TESTS | | | [...] [facility] | [address] | [place] [address] | | | JANELL SHARP | KRISTEN [...] [facility] | [address] | [place] [address] | | | SERVICES, CORE | PARK [...] + + + + + | [facility] | [address] [facility] | [place] [address] | | | SERVICES, CORE | KRISTEN [...] + + + + + | [facility] | [address] | [place] [address] | | | SERVICESJANELL | [address] [...] [facility] | [address] | [place] [address] | | | SERVICES, CORE | [address] | | | + + + + + 12 LEAD ECG (03/21/2012 1:28 AM PST) + + + + + + | Component | Value | Ref Range | Performed | Pathologist | | | | | At | Signature | + + + + + + | VENTRICULAR | 107 | BPM | [facility] | | | RATE | | [...] GARCIA | | | | | | (9332) on 03/22/2012 | | | | | | 12:47:28 PM | | | | + + + + + + + + | Specimen | + + | | + + + + + | Narrative | Performed At | + + + | Please click | [facility] | | on view image for the detailed interpretation from [employer] results. | CARDIOLOGY | + + + + + + + + | Performing | Address | City/State/Zipcode | Phone Number | | Organization | | | | + + + + + | [facility] | [address] | [place], [place] | | | CARDIOLOGY | [address] | [address] | | + + + + + [...] | + +---------+ + + | [facility] DE[facility]MENT OF | | | | | [...] [facility] | [address] | [place] [address] | | | SERVICES, CORE | PARK [...] + + + + + | [facility] | [address] | [place] [address] | | | SERVICES, CORE | KRISTEN [...] [facility] | [address] | [place], [place] | | | [facility] | [address] | [address] | | | TESTS | | | [...] + + + | Please click | [facility] | | on view image for the detailed interpretation from [employer] results. | CARDIOLOGY | + + + + + + + + | Performing | Address | City/State/Zipcode | Phone Number | | Organization | | | | + + + + + | [facility] | [address] | [place], [place] | | | CARDIOLOGY | [address] | [address] | | + + + + + [...] [facility] | [address] | [place], [place] | | | [facility] | [facility] | [address] | | | TESTS | | | [...] | 60 - 99 mg/dL | [facility] - | | | GLUCOSE, | | [...] [facility] | [address] | [place], [place] | | | [facility] | [address] | [address] | | | TESTS | | | | + + + + + X-RAY PORTABLE CHEST 1 VIEW (03/20/2012 10:13 AM PST) + + + + + + | Component | Value | Ref Range | Performed | Pathologist | | | | | At | Signature | + + + + + + | X-RAY | STUDY: TN CHEST 1 VIEW | | | | [...] | + +---------+ + + | [facility] | | | | | [...] [facility] | [address] | [place] [address] | | | ARON, JANELL | [address]ST[address] [...] + + + + + | [facility] | [address] | [place] [address] | | | SERVICES, CORE | KRISTEN [...] | 0.90 - 1.20 INR | [facility] | | | | | | LABORATORY [...] [facility] | [address] | [place] [address] | | | SERVICES, CORE | PARK [...] | + + + + + | [facility] | [address] | [place] [address] | | | SERVICES, CORE | KRISTEN [...] [facility] | [address] | [place], [place] | | | [facility] | [address] | [address] | | | TESTS | | | [...] [facility] | [address] | [place], [place] | | | [facility] | [address] | [address] | | | TESTS | | | [...] + + + + + | [facility] | [address] | [place] [address] | | | SERVICES, JANELL | [address]RI[address] [...] + + + + + | [facility] | [address] | [place] [address] | | | SERVICES, CORE | KRISTEN [...] [facility] | [address] | [place], [place] | | | [facility] | [address] | [address] | | | TESTS | | | [...] + + + | Please click | [facility] | | on view image for the detailed interpretation from [employer] results. | CARDIOLOGY | + + + + + + + + | Performing | Address | City/State/Zipcode | Phone Number | | Organization | | | | + + + + + | [facility] | [address] | [place], [place] | | | CARDIOLOGY | [address] | [address] | | + + + + + [...] - [facility] | [address] | [place], [place] | | | [facility] | [address] | [address] | | | TESTS | | | [...] [facility] | [address] | [place], [place] | | | [facility] | [address] | [address] | | | TESTS | | | [...] + + + + + | [facility] | [address] | [place] [address] | | | SERVICES, CORE | KRISTEN [...] | [facility] | [address] | [place] [address] | | | SERVICES, CORE | PARK [...] [facility] | [address] | [place] [address] | | | SERVICES, CORE | KRISTEN [...] + + | [facility] | [address] [facility] | [place] [address] | | | JANELL SHARP | KRISTEN [...] | | | | Final | | [place] | | | | CULTURE RESULT:No growth [...] + | [facility] | [address] | [place] [address] | | | [place] | | | | + + + [...] [facility] | [address] | [place] [address] | | | SERVICES, CORE | PARK [...] [facility] | [address] | [place] [address] | | | SERVICES, CORE | PARK [...] [facility] | [address] | [place] [address] | | | SERVICES, CORE | [address] | | | + + + + + CULTURE, BLOOD BACTI & YEAST [facility] (03/19/2012 1:10 AM PST) + + + [...] | [facility] | [address] | [place] [address] | | | SERVICES, CORE | KRISTEN [...] + + + + + | [facility] | [address] | [place] [address] | | | SERVICES, CORE | PARK [...] | 60 - 99 mg/dL | [facility] - | | | GLUCOSE, | | [...] [facility] | [address] | [place], [place] | | | [facility] | [address] | [address] | | | TESTS | | | [...] + + + + + | [facility] | [address] | [place] [address] | | | ARON, CORE | KRISTEN [...] [facility] | [address] | [place], [place] | | | [facility] | [facility] | [address] | | | TESTS | | | [...] LABORATORY | [address] | [place] [address] | | | SERVICES, CORE [...] | + + + + + | [facility] | [address] [facility] | [place] [address] | | | SERVICES, CORE | KRISTEN [...] [facility] | [address] | [place], [place] | | | [facility] | [address] | [address] | | | TESTS | | | | + + + + + OPERATION RECORD (03/18/2012 11:22 AM PST) + + | Transcriptions | + + | Mirela Salgado MD - 03/18/2012 8:38 AM [facility] Date: 03/17/2012ttending | | Surgeon: Mirela Salgado M.D.Program Or Project Administrator(s): [place] | | Bennett Galvez M.D.Preoperative Diagnosis(es):Embolus, [...] vigorous inflow. A | | number 3 Neaveh catheter waspassed down the anterior tibial vessel [...] | tolerated the procedure well.MIRELA SALGADO, [facility] Hospitalessor of SurgeryDUKE [facility] / [id number] / | | [id number] / [id number] / T: 03/17/2012 | |was no pulse. [...] | | | |MIRELA SALGADO MD | |poultry grader | | | |GLM / HS | |[id number] / [id number] / [id number] / | | | | | + [...] [facility] | [address] | [place] [address] | | | SERVICES, CORE | KRISTEN [...] [facility] | [address] | [place] [address] | | | SERVICES, CORE | PARK [...] [facility] | [address] | [place] [address] | | | SERVICES, CORE | KRISTEN [...] | + + + + + | [facility] | [address] | [place] [address] | | | SERVICES, CORE | KRISTEN [...] [facility] | [address] | [place] [address] | | | SERVICES, CORE | KRISTEN [...] [facility] | [address] | [place] [address] | | | SERVICES, CORE | KRISTEN [...] + + | [facility] | [address] [facility] | [place] [address] | | | JANELL SHARP | KRISTEN [...] [facility] | [address] | [place], [place] | | | [facility] | [facility] | [address] | | | TESTS | | | [...] [facility] | [address] | [place], [place] | | | [facility] | [facility] | [address] | | | TESTS | | | [...] [facility] | [address] | [place], [place] | | | [facility] | [address] | [address] | | | TESTS | | | [...] + | [facility] | [address] [facility] | [place] [address] | | | ARON, JANELL | KRISTEN [...] + + + + + | [facility] | [address] | [place] [address] | | | ARON, JANELL | KRISTEN [...] + + + + + | [facility] | [address] | [place] [address] | | | SERVICES, JANELL | KRISTEN [...] + + + + + | [facility] | [address] | [place] [address] | | | SERVICES, CORE | KRISTEN [...] | 60 - 99 mg/dL | [facility] - | | | GLUCOSE, | | [...] [facility] | [address] | [place], [place] | | | [facility] | [address] | [address] | | | TESTS | | | [...] [facility] | [address] | [place] [address] | | | SERVICES, | [address] [...] [facility] | [address] | [place] [address] | | | SERVICES, | [address] [...] + + + + + | [facility] | [address] | [place] [address] | | | SERVICES, CORE | KRISTEN [...] (H) | 60 - 99 mg/dL | [facility] - | | | GLUCOSE, | | | [facility] | | | POC | | | [facility] | | | | | | [facility] CARE | | | | | | TESTS | | + +---------+ + + + + + | Specimen | + + | | + + + + + + + | Performing | Address | City/State[facility] | Phone Number | | Organization | | | | + + + + + | [facility] | [address] | [place], [place] | | | [facility] | [address] | [address] | | | TESTS | | | [...] | + +---------+ + + | [facility] | | | | | [...] | 60 - 99 mg/dL | [facility] - | | | GLUCOSE, | | [...] [facility] | [address] | [place], [place] | | | [facility] | [address] | [address] | | | TESTS | | | [...] [facility] | [address] | [place], [place] | | | [facility] | [address] | [address] | | | TESTS | | | [...] + + + + + | [facility] | [address] | [place] [address] | | | SERVICES, CORE | KRISTEN [...] [facility] | [address] | [place], [place] | | | [facility] | [address] | [address] | | | TESTS | | | [...] [facility] | [address] | [place] [address] | | | SERVICES, CORE | PARK [...] + + + + + | [facility] | [address] | [place] [address] | | | SERVICES, CORE | PARK [...] [facility] | [address] | [place] [address] | | | SERVICES, CORE | PARK [...] [facility] | [address] | [place] [address] | | | SERVICES, CORE | PARK [...] - [facility] | [address] | [place], [place] | | | [facility] | [facility] | [address] | | | TESTS | | | [...] | 60 - 99 mg/dL | [facility] - | | | GLUCOSE, | | [...] + + + | [facility] | [address] | [place], [place] | | | [facility] | [address] | [address] | | | TESTS | | | [...] | + +---------+ + + | [facility] | | | | | [...] Kirstie | | | | | | Dell | | | | + + + [...] [facility] | [address] | [place], [place] | | | [facility] | [address] | [address] | | | TESTS | | | [...] [facility] | [address] | [place], [place] | | | [facility] | [facility] | [address] | | | TESTS | | | [...] + + | Performing | Address | City/State/[facility] | Phone Number | | Organization | | | | + + + + + | [facility] | [address] | [place] [address] | | | SPECIAL ARON | KRISTEN [...] [facility] | [address] | [place] [address] | | | SERVICES, SPECIAL | PARK [...] [facility] | [address] | [place] [address] | | | SERVICES, SPECIAL | KRISTEN [...] [facility] | [address] | [place] [address] | | | SERVICES, SPECIAL | PARK [...] [facility] | [address] | [place] [address] | | | SERVICES, CORE | KRISTEN [...] + + | [facility] | [address] | [place] [address] | | | ARON, JANELL | KRISTEN [...] [facility] | [address] | [place] [address] | | | SERVICES, CORE | PARK [...] + + + + + | [facility] | [address] [facility] | [place] [address] | | | ARON, JANELL | KRISTEN [...] [facility] | [address] | [place], [place] | | | [facility] | [facility] | [address] | | | TESTS | | | [...] + + + + + | [facility] | [address] | [place] [address] | | | SERVICES, CORE | PARK [...] [facility] | [address] | [place], [place] | | | [facility] | [address] | [address] | | | TESTS | | | [...] | 60 - 99 mg/dL | [facility] - | | | GLUCOSE, | | [...] + + + | [facility] | [address] | [place], [place] | | | [facility] | [address] | [address] | | | TESTS | | | [...] | | | | | | ,Author: VNEKATA HOOK, | | | | | | [...] | | | | | signed / Venktaa Hook | | | | | | [...] [facility] | [address] | [place], [place] | | | [facility] | [address] | [address] | | | TESTS | | | [...] + + + + | PRODUCT | [id number] | | [facility] | | | UNIT [...] + + + + | BLOOD | 28179 | | [facility] | | | PRODUCT [...] + + + + + | [facility] | [address] | [place] [address] | | | PATHOLOGY | [address] [...] + + + + | PRODUCT | [id number] | | [facility] | | | UNIT [...] + + + + | BLOOD | 70419 | | [facility] | | | PRODUCT [...] [facility] | [address] | [place] [address] | | | PATHOLOGY | [address] [...] + + + + + | [facility] | [address] | [place] [address] | | | SERVICES, CORE | KRISTEN [...] | 60 - 99 mg/dL | [facility] - | | | GLUCOSE, | | [...] + + + | [facility] | [address] | [place], [place] | | | [facility] | [address] | [address] | | | TESTS | | | [...] [facility] | [address] | [place], [place] | | | [facility] | [address] | [address] | | | TESTS | | | [...] [facility] | [address] | [place] [address] | | | SERVICES, CORE | PARK [...] [facility] | [address] | [place] [address] | | | SERVICES, CORE | PARK [...] [facility] | [address] | [place] [address] | | | SERVICES, CORE | KRISTEN [...] if | | | | | | [id number] >400: | | | | | | [...] + | [facility] | [address] | [place] [address] | | | [place] | | | [...] [facility] | [address] | [place] [address] | | | SERVICES, CORE | PARK [...] [facility] | [address] | [place] [address] | | | SERVICES, CORE | PARK [...] [facility] | [address] | [place] [address] | | | SERVICES, CORE | KRISTEN [...] | + + + + + | [facility] | [address] | [place] [address] | | | [place] | | | [...] [facility] | [address] | [place], [place] | | | [facility] | [address] | [address] | | | TESTS | | | [...] + + | [facility] | [address] [facility] | [place] [address] | | | SERVICES, CORE | PARK [...] + + + + + | [facility] | [address] | [place] [address] | | | SERVICES, CORE | KRISTEN [...] 98 | 60 - 99 mg/dL | [facility] - | | | GLUCOSE, | | [...] [facility] | [address] | [place], [place] | | | [facility] | [address] | [address] | | | TESTS | | | [...] [facility] | [address] | [place] [address] | | | SERVICES, CORE | KRISTEN [...] gas. | | | | | | Xhgjao-jj-xdfuxh left | | | | | | [...] Davina | | | | | | Screven | | | | + + + [...] - [facility] | [address] | [place], [place] | | | [facility] | [address] | [address] | | | TESTS | | | [...] % | [facility] | | | | [facility] | | [facility] | | | | [facility] | | [facility] | | | | [address] | | | | | | [phone][employer] | | | | | | Kaitlin [...] [facility] | [address] | [place], [place] | | | UN[facility] | | [address] | | + + + + + [...] + + + + + | [facility] | [address] | [place] [address] | | | SERVICES, CORE | KRISTEN [...] [facility] | [address] | [place] [address] | | | JANELL SHARP | KRISTEN [...] - [facility] | [address] | [place], [place] | | | [facility] | [address] | [address] | | | TESTS | | | [...] [facility] | [address] | [place] [address] | | | SERVICES, CORE | PARK [...] | + + + + + | [facility] | [address] | [place] [address] | | | SERVICES, CORE | KRISTEN [...] [facility] | [address] | [place], [place] | | | [facility] | [address] | [address] | | | TESTS | | | [...] [facility] | [address] | [place] [address] | | | JANELL SHARP | KRISTEN [...] [facility] | [address] | [place] [address] | | | SERVICES, CORE | KRISTEN [...] + + | [facility] | [address] [facility] | [place] [address] | | | JANELL SHARP | KRISTEN [...] + + + + + | [facility] | [address] | [place] [address] | | | SERVICES, CORE | [address] | | | + + + + + MAGNESIUM, PLASMA (03/13/2012 3:42 AM PST) + +---------+ + + + | Component | Value | Ref Range | Performed | Pathologist | | | | | At | Signature | + +---------+ + + + | MAGNESIUM,P | 2.8 (H) | 1.8 - 2.5 mg/dL | [facility] | | | [facility] | | | [...] [facility] | [address] | [place] [address] | | | SERVICES, CORE | KRISTEN [...] [facility] | [address] | [place] [address] | | | SERVICES, CORE | PARK [...] | | | | Final | | [place] | | | | CULTURE RESULT:No growth [...] + | [facility] | [address] | [place], [place] [address] | | | [place] | | | | + + + [...] | | | Final CULTURE | | [place] | | | | RESULT:Salmonella, | | [...] days. | [facility] - | | | [facility] | + + + + + + + + | Performing | Address | City/State/Zipcode | Phone Number | | Organization | | | | + + + + + | [facility] | [address] | [place] [address] | | | [place] | | | [...] [facility] | [address] | [place] [address] | | | SERVICES, CORE | KRISTEN [...] [facility] | [address] | [place], [place] | | | [facility] | [address] | [address] | | | TESTS | | | [...] view image for the detailed interpretation from [employer] results. | CARDIOLOGY | + + + + + + + + | Performing | Address | City/State/Zipcode | Phone Number | | Organization | | | | + + + + + | [facility] | [address] | [place], [place] | | | CARDIOLOGY | [address] | [address] | | + + + + + [...] | + +---------+ + + | [facility] | | | | | RADIOLOGY | | | | + +---------+ + + CULTURE, BLOOD BACTI & YEAST [facility] (03/12/2012 9:57 PM PST) + + + [...] [facility] | [address] | [place] [address] | | | SERVICES, CORE [...] [facility] | [address] | [place] [address] | | | SERVICES, CORE | KRISTEN [...] [facility] | [address] | [place] [address] | | | SERVICES, CORE | KRISTEN [...] [facility] | [address] | [place] [address] | | | SERVICES, [facility] | [address] | | | + + + + + CAPILLARY BLOOD GLUCOSE (NO CHG), POC (03/12/2012 7:19 PM PST) + +---------+ + + + | Component | Value | Ref Range | Performed | Pathologist | | | | | At | Signature | + +---------+ + + + | BLOOD | 176 (H) | 60 - 99 mg/dL | [facility] - | | | GLUCOSE, | | [...] [facility] | [address] | [place], [place] | | | [facility] | [facility] | [address] | | | TESTS | | | [...] [facility] | [address] | [place] [address] | | | SERVICES, CORE | PARK [...] [facility] | [address] | [place] [address] | | | SERVICES, CORE | PARK [...] [facility] | [address] | [place] [address] | | | SERVICES, | [address] [...] [facility] | [address] | [place] [address] | | | SERVICES, | [address] [...] | + + + + + | [facility] | [address] | [place] [address] | | | SERVICES, JANELL | KRISTEN [...] [facility] | [address] | [place] [address] | | | SERVICES, CORE | PARK [...] + | [facility] | [address] [facility] | [place] [address] | | | SERVICES, CORE | KRISTEN [...] | | | | First dose on [facility] 03/23/12 at | | | | [...] | | | Hours, ONCE, 1 dose, [facility] 03/16/12 | | | | | [...] | | | | | 1 dose, [facility] 03/21/12 at 1515 | | PM PST [...] | | | | | 1115, Until [facility] 03/30/12 at 1055, | | | [...] | | | | | 0840, Until [facility] 03/30/12 at 1057, | | | [...] | | | oral, ONCE, 1 dose, [facility] 03/25/12 | | AM [...] | | | oral, ONCE, 1 dose, [facility] 03/30/12 | | PM PST | [...] | | | oral, ONCE, 1 dose, [facility] 03/17/12 | | PM PST | | [...] | | | | | NEEDED, Starting [facility] 03/16/12 at | | | | [...] | | | | First dose on [facility] 03/30/12 at | | PM PST [...] | | | | | modification) on [facility] 03/23/12 at | | | | [...]
--- OUTSIDE RECORDS SUMMARY | ~2019-03-09 | XMS | Encounter Summary ---
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
--- OUTSIDE RECORDS SUMMARY | ~2019-03-09 | XMS | Encounter Summary ---
Demographics + + + | Address | [address] | | | [place] [address] | + + + | Home Phone [...] Team Providers + +------+ + | Care Drama Teacher Name | Role | Phone | + +------+ + PCP | Unavailable | + +------+ + Encounter Details +--------+ + + + + | Date | Type | Department | Care Team | Description | +--------+ + + + + | 03/07/ | Hospital | [facility] | SahraCynthiaay Nena, | Rectovaginal | | 2017 - | Encounter | [facility] [address] | MD Gaby SINGH | fistula; Crohn's | | | | [address] | [address] | disease of large | | 03/12/ | | [place], [place] | [place] [address] | intestine with | | 2017 | | [address] | [phone] | complication (HCC) | | | | [phone] | | | +--------+ + + + [...] 0751 Date of Service: 03/12/1746 Status: Signed Retirement Actuary: JENARO Mathew (Nurse Practitioner) [facility] Service: Colon & Rectal Surgery Discharge Summary [...] Humirabeing seen by Dr. She CLAYTON in [place]. She previously underwent a small bowel resection [...] She was then recommended to go to [place] for a second opinio n. She never went to [place] due to the trip being a hardship [...] a open colostomy with Dr. Bocanegra. Si [facility] surgery she has recovered slowly. She is tolerating a general diet without N/V. Her co lostomy is passing gas and stool. Oral pain medications are managing the patients pain. e is ambulatory. Vitals and labs are stable. The patient is ready for discharge. 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 Chronic diarrhea COPD (chronic obstructive pulmonary disease) ([facility]) Crohn's disease ([facility]) Deep vein thrombosis (DVT) ([facility]) right leg and then travelled to [facility] Depression E-coli UTI Embolism and thrombosis of splenic artery Gastroesophageal reflux disease with hiatal hernia GERD (gastroesophageal reflux disease) Hemorrhage of gastrointestinal tract, unspecified Hypertension Hypokalemia 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) Joint pain Microcytic anemia Neuromuscular disorder ([facility]) left leg numbness, severe tingling, shooting pain down leg Neuropathy On total parenteral nutrition (TPN) Osteoporosis Other chronic pain Pyelonephritis Recurrent aphthous ulcer Sepsis (HCC) Past Surgical History Procedure Laterality Date ABDOMINAL SURGERY ANAL FISTULA SETON PLACEMENT N/A 10/17/2015 Procedure: ANAL FISTULA SETON PLACEMENT; Surgeon: Enrique Bocanegra MD; Location: [facility] M AIN OR; Service: General; Laterality: N/A; APPENDECTOMY CHOLECYSTECTOMY COLOSTOMY N/A 03/07/2017 Procedure: COLOSTOMY; Surgeon: Enrique Bocanegra MD; Location: [facility] OR; Service: G eneral; Laterality: N/A; ESOPHAGOGASTRODUODENOSCOPY Left 08/06/2015 Procedure: ESOPHAGOGASTRODUODENOSCOPY; Surgeon: Sheng Rios MD; Location: [facility]; Service: Gastroenterology; Laterality: Left; ESOPHAGOGASTRODUODENOSCOPY N/A 04/21/2014 Procedure: ESOPHAGOGASTRODUODENOSCOPY; Surgeon: Bony Petty MD; Location: [facility] BEDSIDE PROCEDURE; Service: Gastroenterology; Laterality: N/A; HYSTERECTOMY LAPAROTOMY N/A 04/23/2014 Procedure: EXPLORATION - LAPAROTOMY; Surgeon: Bogdan Moser DO; Location: [facility] MAIN O R; Service: General; Laterality: N/A; LYSIS OF ADHESIONS PORTACATH PLACEMENT Left SMALL INTESTINE SURGERY SPLENECTOMY, TOTAL N/A 04/23/2014 Procedure: SPLENECTOMY; Surgeon: Bogdan Moser DO; Location: [facility] MAIN OR; Service: General; Laterality: [...] Change midline dressing and ostomy appliance with ostomy/disease case manager prior to discharge Discharge home Disposition: Home Condition: Stable Code Status: Full Code No discharge procedures on file. Follow up: JENARO Mathew [address] [place] [id number] Schedule an appointment as soon as possible [...] 1422 Date of Service: 03/12/171414 Status: Signed Retirement Actuary: Catracho Almaguer RN (Registered Nurse) [facility] Service: Ostomy Care Consult Note Hospital Day: [...] 03/12/17637 Date of Service: 03/12/17637 Status: Signed Retirement Actuary: Lashawn Valdez RN (Registered Nurse) Dr mckeon in room to examine patient. onver roshan Transaction, Provider Unknown - 03/12/2017 6:19 AM PST Progress Notes by Lashawn Valdez RN at 03/12/17618 Author: Lashawn Valdez RN Service: (none) Author Type: Registered Nurse Filed: 03/12/17625 Date of Service: 03/12/17618 Status: Signed Retirement Actuary: Lashawn Valdez RN (Registered Nurse) Patient is [...] Wound/Ostomy Care Author Type: Registered Nurse Filed: 03/11/173 Date of Service: 03/11/171630 Status: Signed Retirement Actuary: Catracho Almaguer RN (Registered Nurse) [facility] Service: Ostomy Care Consult Note Hospital Day: [...] Notes by Brooke Hawkins RD at 03/11/17 4634 Author: Brooke Hakwins RD Service: (none) Author Type: Registered Dietitian Filed: 03/11/17 3318 Date of Service: 03/11/171449 Status: Signed Retirement Actuary: Brooke Hawkins RD (Registered Dietitian) 03/11/17 7000 Subjective Timepoint Follow up Pt c/o In [...] Date of Service: 03/11/17 1306 Status: Signed Retirement Actuary: Maryellen Salter RN (Registered Nurse) Discharge plan- patient will be able to return home with family when medically ready. CM ma de an ostomy appt for her on 03/16/17 at 0915. Information added to AVS. MARYELLEN SALTER RN Case Management [phone] onver roshan Transaction, Provider Unknown - 03/11/2017 12:28 PM PST Therapy Progress Note by Moses Pathak PTA at 03/11/17 1228 Author: Moses Pathak PTA Service: (none) Author Type: Front Office Help Filed: 03/11/17 1232 Date of Service: 03/11/17 1228 Status: Signed Retirement Actuary: Moses Pathak PTA (Front Office Help) 03/11/17 1228 PT Last Visit PT Received [...] Author: Dorina Jang Service: (none) Author Type: Ham Clerk Filed: 03/11/17 1136 Date of Service: 03/11/171126 Status: Signed Retirement Actuary: Dorina Jang (Ham Clerk) Referral from RN to assess for emotional/spiritual [...] ostomy bag was leaking. Plan: Let pm electromagnet crane operator know and revisit her later today. Would benefit from electromagnet crane operator suppo rt and a bit of reframing her life going forward. Chaplain Sue KUNZ onver roshan Transaction, Provider Unknown - 03/11/2017 10:50 AM PST Nurse Progress Note by Catracho Almaguer RN at 03/11/17 1050 Author: Catracho Almaguer RN Service: Wound/Ostomy Care Author Type: Registered Nurse Filed: 03/11/17 1100 Date of Service: 03/11/17 1050 Status: Signed Retirement Actuary: Catracho Almauger RN (Registered Nurse) Ostomy nurse presents to [...] a good seal on her ostomy bag. Don Caraballo MD - 03/11/2017 9:45 AM PST Progress Notes by Don Sheldon MD at 03/11/17944 Author: Don Sheldon MD Service: Hospitalist Author Type: Physician Filed: 03/11/1748 Date of Service: 03/11/17944 Status: Signed Retirement Actuary: Don Sheldon MD (Physician) [facility] Service: Hospitalist Progress Note Pt: Smita Willingham AGE/SEX: 61 y.o. female ROOM: [address] [place] [address]- : 1955 PCP: No primary care provider [...] Infusions lactated ringers 50 mL/hr at 03/10/17 7421 PRN Medications [DISCONTINUED] acetaminophen OR acetaminophen, diphenhydrAMINE [...] anemia. I will give her intravenous iron tonena bautista. His INR today is Recent Labs [...] tolerated. Monitor and follow as indicated. DON SHELDON MD, FACP 03/11/2017 9:45 AM Dictation software, [employer], used which may contain error for similar sounding words even af ter review. Personal communication requested for any clarification. Portions of this chart may have been copied from previous notes for continuity of care purp ose Jordon Hauser ARNP - 03/11/2017 7:45 AM PST . Progress Notes by JENARO Mathew at 03/11/1734 Author: JENARO Mathew Service: General Surgery Author Type: Nurse Practitionying enciso Filed: 03/11/17 9228 Date of Service: 03/11/1726 Status: Signed Retirement Actuary: JENARO Mathew (Nurse Practitioner) [facility] Service: Colon & Rectal Surgery Progress Note [...] Date of Service: 03/11/17 010 Status: Signed Retirement Actuary: Lashawn Valdez RN (Registered Nurse) Report given [...] Date of Service: 03/10/17 1520 Status: Signed Retirement Actuary: Aniceto Chen PT (Physical Therapist) 03/10/17 1520 PT Last Visit PT Received On 03/10/17 Reason for Treatment Other (comment) (s/p end colostomy) Requires PT Follow Up Awaiting tx order Follow up PT Only? No Focus for Next Treatment Transfer Technique PT Eval/Reassessment Date 03/10/17 Assistance Required 1 person Hospital Security Officer Needed No Precautions Other Precautions new colostomy [...] Date of Service: 03/10/17 1520 Status: Signed Retirement Actuary: Aniceto Chen PT (Physical Therapist) 03/10/17 1520 PT Last Visit PT Received On 03/10/17 Reason for Treatment Other (comment) (s/p end colostomy) Requires PT Follow Up Awaiting tx order Follow up PT Only? No Focus for Next Treatment Transfer Technique PT Eval/Reassessment Date 03/10/17 Assistance Required 1 person Hospital Security Officer Needed No Home Environment Type of Home Home one story Home Exterior Layout 1-3 steps (1 entry step) Home Equipment Walker front wheeled Prior Function Level of [place] Independent with functional mobility;Independent with ADLs Falls in Past Year No Lives With Spouse Employment Retired for age Comments pt is a 61 y/o female s/p lysis of adhesions and end colostomy. She lives in [facility] with her spouse in a single story [...] Note by Catracho Almaguer RN at 03/10/17 709 Author: Catracho Almaguer RN Service: Wound/Ostomy Care Author Type: Registered Nurse Filed: 03/10/179 Date of Service: 03/10/171312 Status: Signed Retirement Actuary: Catracho Almaguer RN (Registered Nurse) Ostomy nurse [...] Author: LEVI Borrego Service: (none) Author Type: Retail Event Coordinator Filed: 03/10/17 1313 Date of Service: 03/10/17 1312 Status: Signed Retirement Actuary: LEVI Borrego (Retail Event Coordinator) Discharge planning: Pt return home with outpt ostomy care. CM entered sticky note for Dr to sign referrral. Don Caraballo MD - 03/10/2017 10:41 AM PST Progress Notes by Don Sheldon MD at 03/10/17 1041 Author: Don Sheldon MD Service: Hospitalist Author Type: Physician Filed: 03/10/17 1101 Date of Service: 03/10/17 1041 Status: Signed Retirement Actuary: Don Sheldon MD (Physician) [facility] Service: Hospitalist Progress Note Pt: Smita Willingham AGE/SEX: 61 y.o. female ROOM: [address] [place] [address] : 1955 PCP: No primary care provider [...] tolerated. Monitor and follow as indicated. DON SHELDON MD, FACP 03/10/2017 10:41 AM Dictation software, [employer], used which may contain error for similar [...] 03/10/17822 Date of Service: 03/10/17820 Status: Signed Retirement Actuary: JENARO Mathew (Nurse Practitioner) [facility] Service: Colon & Rectal Surgery Progress Note [...] eval and treat, please encourage ambulation -D/C ELECTRIC FRYING PAN REPAIRER, percocet and dilaudid for pain -General diet [...] 03/10/17505 Date of Service: 03/10/17502 Status: Signed Retirement Actuary: Angeles Tao RN (Registered Nurse) Pt very lethargic at start of shift with gradual improvement over the course of the night. Reports no pain when not moving but continues to push ELECTRIC FRYING PAN REPAIRER button often. Colostomy producing green liquid stool [...] 03/09/172007 Date of Service: 03/09/171956 Status: Signed Retirement Actuary: Gris Yee RN (Registered Nurse) Pt continues to c/o pain but respiration drop down to 4-9 with ELECTRIC FRYING PAN REPAIRER. ELECTRIC FRYING PAN REPAIRER is stopped. Pt is a waken to [...] 1716 Date of Service: 03/09/171619 Status: Signed Retirement Actuary: Linnea Lezama RN (Registered Nurse) 03/09/17 3959 Discharge Planning Evaluation Admitting Diagnosis Chron's disease, [...] of Home Care Services Other (Comment) ([facility] for T[facility]) Mental Status Oriented;Other (comment) (Lethargic) Resources Financial concerns No Transportation issues No Patient/Family concerns No Prescription Plan Yes Name of Pharmacy [facility] in [place] Ostomy/Drains/Appliances Yes (New Colostomy) Anticipated Disposition Facility Type Home Met with pt who was oriented, but lethargic at this time, and discussed discharge planning, Pt is a 61 y.o., female who lives at home with her in [place], [place]. Pt is indepen dent with ADLs and mobility. Uses a cane and walker only as needed. Pt is currently set up with [facility] for TPN. Pt is on coumadin and follow up at the coumadin clinic in [place], [place]. Pt is not on home O2 [...] 03/09/17953 Date of Service: 03/09/17929 Status: Signed Retirement Actuary: Jaz Gonzáles PT (Physical Therapist) 03/09/17929 PT Last Visit PT Received On 03/09/17 Requires PT Follow Up On hold Other Comments Comments Pts H&H very low at this time, pt will be getting blood and she is very nauseated at this time. Don Caraballo MD - 03/09/2017 9:16 AM PST Progress Notes by Don Sheldon MD at 03/09/17915 Author: Don Sheldon MD Service: Hospitalist Author Type: Physician Filed: 03/09/17927 Date of Service: 03/09/17915 Status: Signed Retirement Actuary: Don Sheldon MD (Physician) [facility] Service: Hospitalist Progress Note Pt: Smita Willingham AGE/SEX: 61 y.o. female ROOM: [address] [place] [address] : 1955 PCP: No primary care provider [...] tolerated. Monitor and follow as indicated. DON SHELDON MD, FACP 03/09/2017 9:16 AM Dictation software, [employer], used which may contain error for similar [...] 1057 Date of Service: 03/09/17908 Status: Signed Retirement Actuary: JENARO Mathew (Nurse Practitioner) [facility] Service: Colon & Rectal Surgery Progress Note Hospital Day: LOS: 2 days Post-Op Day: 1 Day Post-Op SUBJECTIVE Patient Summary: 61 y.o. female with Chron's and anovaginal fistulas SP colostomy Events Overnight: Pt complains of nausea this morning. Abdominal pain is controlled with ELECTRIC FRYING PAN REPAIRER. Colostomy noted with liquid stool and gas [...] to eval and treat, encourage ambulation -Continue ELECTRIC FRYING PAN REPAIRER for pain management -Continue CLD per ERAS [...] 0659 Date of Service: 03/09/17655 Status: Signed Retirement Actuary: Ruma Guerra RN (Registered Nurse) Notified Dr. Bocanegra of HGB 6.9, orders to transfuse 1 unit of blood. Informed MD that pt continue to be lethargic throughout night but easily arousable. ETCO2 up to 65 at times. Re spiratory came up to do STAT ABG, results came back normal, pt compensated. Will possibly d /c ELECTRIC FRYING PAN REPAIRER this AM pending MD decision. Will inform day shift RN. onver roshan Transaction, Provider Unknown - 03/09/2017 4:57 AM PST Progress Notes by Ruma Guerra RN at 03/09/17456 Author: Ruma Guerra RN Service: (none) Author Type: Registered Nurse Filed: 03/09/17 0503 Date of Service: 03/09/17456 Status: Signed Retirement Actuary: Ruma Guerra RN (Registered Nurse) Pt been lethargic but alert and oriented x 4 when pt asked orientation questions. Pt states "I feel like I am getting the flu, my body ache and I feel tired all the time" Vitals WNL, pain managed by ELECTRIC FRYING PAN REPAIRER pump. Incontinent of urine. Does not want to get out of bed. Will contin ue to monitor. onver roshan Transaction, Provider Unknown - 03/08/2017 11:43 AM PST Progress Notes by Chata Guadalupe RD at 03/08/17 1143 Author: Chata Guadalupe RD Service: (none) Author Type: Registered Dietitian Filed: 03/08/17 1144 Date of Service: 03/08/17 114 Status: Signed Retirement Actuary: Chata Guadalupe RD (Registered Dietitian) 03/08/17 1124 [...] note reports pt was on "TPN from [facility] in [place]: 275 g Dextrose, 90 g AA, 40 [...] Estimated Energy Needs Total Energy Estimated Needs 6365-3851 kcal/day Method for Estimating Needs 25-30 kcal/kg [...] Follow up date 03/11/[address] [facility] Jordon zhu ARNP - 03/08/2017 11:25 AM PST Progress Notes by JENARO Mathew at 03/08/17 3608 Author: JENARO Mathew Service: General Surgery Author Type: Nurse Jennifer enciso Filed: 03/08/17 6807 Date of Service: 03/08/17 4088 Status: Signed Retirement Actuary: JENARO Mathew (Nurse Practitioner) [facility] Service: Colon & Rectal Surgery Progress Note Hospital Day: LOS: 1 day Post-Op Day: 1 Day Post-Op SUBJECTIVE Patient Summary: 61 y.o. female with Chron's and anovaginal fistulas SP colostomy Events Overnight: Doing well. She complains of nausea this morning but better now. Abdominal pain is controlled with ELECTRIC FRYING PAN REPAIRER. emergency service restorer changed midline dressing, and ostomy appli ance. [...] recommendations -PT to eval and treat -Continue ELECTRIC FRYING PAN REPAIRER for pain management -Continue CLD per ERAS protocol -Continue Ostomy education -Continue lovenox for deep vein thrombosis prophylaxis -Encourage ambulation Disposition: Code Status: Full Code JENARO MATHEW 03/08/2017 Don Massey MD - 03/08/2017 10:17 AM PST . Progress Notes by Don Sheldon MD at 03/08/17 1017 Author: Don Sheldon MD Service: Hospitalist Author Type: Physician Filed: 03/08/17 1032 Date of Service: 03/08/171016 Status: Signed Retirement Actuary: Don Sheldon MD (Physician) [facility] Service: Hospitalist Progress Note Pt: Smita Willingham AGE/SEX: 61 y.o. female ROOM: [address] [place] [address] : 1955 PCP: No primary care provider [...] agree with the following nutritional recommendations: DON SHELDON MD, FACP 03/08/2017 10:17 AM Dictation software, [employer], used which may contain error for similar [...] 03/08/1738 Date of Service: 03/08/17736 Status: Signed Retirement Actuary: Jazmyn Beard RN (Registered Nurse) Infection Prevention [...] 03/07/171503 Date of Service: 03/07/171503 Status: Signed Retirement Actuary: Sofía Chamberlain RPH (Pharmacist) Clinical Pharmacy Note: [...] Note by Vernell Tovar RN at 03/07/17 840 Author: Vernell Tovar RN Service: (none) Author Type: Registered Nurse Filed: 03/07/17 1415 Date of Service: 03/07/171412 Status: Signed Retirement Actuary: Melveyne Tovar, RN (Registered Nurse) Called anesthesia and informed of pt's frequent PVCs but pt denies chest pain or SOB. BP 14 8/69, heart rate 88-90 bpm. Per anesthesia, pt was also having PVCs in the OR. Anesthesia st ates that she will talk with Dr. Bocanegra for an order for pt to be on volunteer recruitment coordinator on t floor. Vernell Tovar RN Stevo espino in this encounter Plan of Treatment +--------+---------+ + + + | Date | Type | Specialty | Care Team | Description | +--------+---------+ + + + | 03/27/ | Office | General Surgery | Severo, | | | 2018 | Visit | | JENARO [address] | | | | | | [facility] [address] | | | | | | [place] [address] | | | | | | [phone] | | | | | | | [...] Mar 12 2017 7:39AM Referring Provider Line: [phone] ID: | | | 109 | | [...] Mar 12 2017 7:39AM Referring Provider Line: [phone] ID: | | 109 | |Lungs/Pleura: Right [...] Mar 12 2017 7:39AM Referring Provider Line: [phone] ID: [id number] | + + External Lab: [...] | | | | | | at [facility], [address] | | | | | | [facility], | | | | | | [place] [address] | | | | | |2+ | | | | | |POIK | | | | | |3+ | | | | | |ANISO | | | | | |NORMAL PLT MORPH | | | | | |Testing performed at [facility], [address] [facility], [place] [address] | | | | | | | [...] | | | | | performed at [facility], [address] | | | | | | [address], | | | | | | [place] [address] | | | | + + + [...] | | | | | performed at [facility], [address] | | | | | | [address], | | | | | | [place] [address] | | | | + + + [...] | | | | | performed at [facility], [address] | | | | | | [address], | | | | | | [place] [address] | | | | + + + [...] | | | | | performed at [facility], [address] | | | | | [address], | | | | | | [place] [address] | | | | + + + [...] EXTERNAL | | | | performed at [facility], [address] | | LAB | | | | [address], | | | | | | [place] [address] | | | | + + + [...] EXTERNAL | | | | performed at [facility], [address] | | LAB | | | | [address], | | | | | | [place] [address] | | | | + + + [...] | | | | | | at L, [address] | | | | | | [address], | | | | | | [place] [address] | | | | + + + [...] + +---------+ + + External Lab: RAPHAEL (03/10/2017 4:11 AM PST) + + +---- [...] | | | | | at [facility], [address] | | | | | | [address], | | | | | | [place] [address] | | | | | |3+ | | | | | |HYPO | | | | | |NORMAL PLT MORPH | | | | | |Testing performed at [facility], [address] [place] [address] | | | | | | | [...] EXTERNAL | | | | performed at [facility], [address] | | LAB | | | | [facility], | | | | | | [place] [address] | | | | + + + [...] EXTERNAL | | | | performed at [facility], [address] | | LAB | | | | [address]un [address], | | | | | | [place] [address] | | | | + + + [...] | | | | | | at [facility], [address] | | | | | | [facility], | | | | | | [place] [address] | | | | + + + [...] | | | Saturation | performed at [facility], [address] | | LAB | | | | [address], | | | | | | [place] [address] | | | | + + + [...] [facility] | | | | | | Clar[address];[place], [place] | | | | | | [address] | | | | + + + [...] | READ BACK BY:ROGER Blackwell RN | g/nena L | LAB | | | | [...] | | | | | performed at [facility], [address] | | | | | | [employer], | | | | | | [place] [address] | | | | | |TARGET | | | | | |NORMAL PLT MORPH | | | | | |Testing performed at [facility], [address] [facility] [place] [address] | | | | | | | [...] EXTERNAL | | | | performed at [facility], [address] | | LAB | | | | [address]un [address], | | | | | | [place] [address] | | | | + + [...] EXTERNAL | | | | performed at [facility], [address] | | LAB | | | | [address]un [address], | | | | | | [place] [address] | | | | + + + [...] W | | | | | | [address]pert [address], | | | | | | [place] [address] | | | | + + + [...] | | | | | | at [facility], [address] | | | | | | [facility], | | | | | | [place] [address] | | | | | |2+ | | | | | |TARGET | | | | | |NORMAL PLT MORPH | | | | | |Testing performed at [facility], [address] [place] [address] | | | | | | | [...] EXTERNAL | | | | performed at [facility], [address] | | LAB | | | | [address]un [address], | | | | | | [place] [address] | | | | + + + [...] EXTERNAL | | | | performed at [facility], [address] | | LAB | | | | [address]un [address], | | | | | | [place] [address] | | | | + + + [...] | | | | | [place] [address] | | | | + + + [...] [facility] | | | | | | [facility];[place], [place] | | | | | | [address] | | | | + + + + + + + + | Specimen | + + | | + + + +---------+ + + | Performing | Address | City/State/Zipcode | Phone Number | | Organization | | | | + +---------+ + + | EXTERNAL LAB | | | | + +---------+ + + External Lab: RAPHAEL (03/07/2017 7:02 PM PST) + + + [...] | | | | | at [facility];[address] [place] [address] | | | | | | [facility];[place], [place] [id number] | | | | | |HYPO | | | | | |1+ | | | | | |TARGET | | | | | |NORMAL PLT MORPH | | | | | |Testing performed at [facility] [place];[address] [place] [address];[place] [address] | | | | | | | [...] | LAB | | | | Clarice Singh;[place], [place] | | | | | | [phone] | | | | + + + [...] [facility] [place] | | LAB | | | | Clarice Zamora;[place], [place] | | | | | | [address] | | | | + + + [...] | | | | | at [facility] [place];[facility] [address] | | | | | | [facility];[place] [address] | | | | + + + [...] | | | Fingerstick | performed at [facility] [place];[address] | | LAB | | | | [address];[place], [place] | | | | | | [address] | | | | + + + [...] + + + | BB BAND | [id number] | | EXTERNAL | | | | | | LAB | | + + + + + + | UNIT NUMBER | [id number] | | EXTERNAL | | | | [...] | | | RESULT | performed at [facility] [place];[address] | | LAB | | | | [address];[place], [place] | | | | | | [address] | | | | + + + [...]
--- OUTSIDE RECORDS SUMMARY | ~2019-03-09 | XMS | Encounter Summary ---
Demographics + + + | Address | [address] | | | [place] [address] | + + + | Home Phone | | + + + | Preferred Language | Unknown | + + + | Marital Status | | + + + | Buddhism Affiliation | Unknown | + + + | Race | Unknown | + + + | Ethnic Group | Unknown | + + + Author + + + | Author | [facility] | | | and [place] | + + + | Organization | [facility] | | | and [...] Team Providers + +------+ + | Care Line Up Worker Name | Role | Phone | + +------+ + PCP | Unavailable | + +------+ + Encounter Details +--------+ + + + + | Date | Type | Department | Care Team | Description | +--------+ + + + + | 08/04/ | Hospital | [facility] | Chace Benson | Crohn's disease of | | 2016 - | Encounter | [facility] | MD Alex Steve | large intestine with | | | | CARE FLOOR [address] [place], [place] | complication (HCC) | | 08/07/ | | [address] | [address] | | | 2015 | | [place], [place] | | | | | | [address] | | | | | | [phone] | | | +--------+ + + + [...] Summaries by Deanne Henson MD at 08/08/15 0083 Author: Deanne Henson MD Service: Internal Medicine Author Type: Physician Filed: 08/08/15 1441 Date of Service: 08/08/151 Status: Signed Project Coordinator Rn: Deanne Henson MD (Physician) [facility] Service: Hospitalist Physician Discharge Summary Patient [...] She presented to linda rgency department at [facility] today with complaints of diarrhea, vomiting, [...] she came to the emergency department of [facility], where she was found to have INR of 12.9. NG tube was passed and return was blood-t inged. She was given 2 units of fresh frozen plasma and 10 mg of vitamin K, and patient was transferred to this hospital as there is no GI backup at [facility]. Hospital Course: The pt admitted for vomiting blood with inr > 12. She took extra coumadin pills. She got ffp, vit K, and tx to [facility]. Iv fluds, iv ppi gtt started. git [...] 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 [address] [facility] [id number] Please resume your coumadin therapy services within the next 3 days after discharge. Neel Fernandes MD [address] [facility] [id number] Medication List START taking these medications lactobacillus [...] are the prescriptions that you need to pepper picker. You may get the following medications [...] Service: (none) Author Type: Registered Nurse Filed: 08/08/154 Date of Service: 08/08/151412 Status: Signed Project Coordinator Rn: Linh Perez RN (Registered Nurse) Met with pt regarding discharge planning. Pt states she is followed for her coumadin therap hy with [facility]. Pt states she will resume her coumadin servi krystyna with them upon d/c. No other needs at this time. KaylynGhulam Perez RN, CM. [phone] Deanne Galaviz MD - 08/07/2015 10:12 AM PDTFormatting of this note might be different from the or iginal. Progress Notes by Deanne Henson MD at 08/07/15 1012 Author: Deanne Henson MD Service: Internal Medicine Author Type: Physician Filed: 08/07/15 1017 Date of Service: 08/07/15 1012 Status: Signed Project Coordinator Rn: Deanne Henson MD (Physician) [facility] Service: Hospitalist Progress Note Hospital Day: [...] She presented to linda rgency department at [facility] today with complaints of diarrhea, vomiting, [...] she came to the emergency department of [facility], where she was found to have INR of 12.9. NG tube was passed and return was blood-t inged. She was given 2 units of fresh frozen plasma and 10 mg of vitamin K, and patient was transferred to this hospital as there is no GI backup at [facility]. Scheduled Medications baclofen 10 mg Oral [...] vanco.. Mentions seeing dr Townsend at [facility] for fistula b/w vagina, colon. Get [...] 0644 Date of Service: 08/06/152124 Status: Addendum Project Coordinator Rn: Celsa Del Castillo RN (Registered Nurse) Related [...] Author: LEVI Gallardo Service: (none) Author Type: Valve Seater Operator Filed: 08/06/15 1624 Date of Service: 08/06/15 1622 Status: Signed Project Coordinator Rn: LEVI Gallardo (Valve Seater Operator) 08/06/15 1600 Discharge Planning Evaluation Admitting Diagnosis Upper GI Bleed Readmission No Living Arrangements Spouse/significant other Support Systems Spouse/significant other Independent with ADL's Yes Independent with Mobility Yes Mental Status Oriented Anticipated Discharge Plan Post Acute Care Needs None at this time Resources Financial concerns No Transportation issues No Patient/Family concerns No Prescription Plan Yes Anticipated Disposition Facility Type Home GASTROENTEROLOGY TECHNICIAN met with Pt and discussed discharge planning, [...] needed: None Anticipated DCP: Home ERYN MALHOTRA Pediatric Social Worker [phone] cell Deanne Galaviz MD - 08/06/2015 12:58 PM PDTFormatting of this note might be different from the or iginal. Progress Notes by Deanne Henson MD at 08/06/15 7118 Author: Deanne Henson MD Service: Internal Medicine Author Type: Physician Filed: 08/06/15 1306 Date of Service: 08/06/15 1258 Status: Addendum Project Coordinator Rn: Deanne Henson MD (Physician) Related Notes: Original Note by Deanne Henson MD (Physician) filed at 08/06/15 1304 [facility] Service: Hospitalist Progress Note Hospital Day: [...] She presented to linda rgency department at [facility] today with complaints of diarrhea, vomiting, [...] she came to the emergency department of [facility], where she was found to have INR of 12.9. NG tube was passed and return was blood-t inged. She was given 2 units of fresh frozen plasma and 10 mg of vitamin K, and patient was transferred to this hospital as there is no GI backup at [facility]. Scheduled Medications hydrocortisone sodium succinate PF [...] uti's. Mentions seeing dr Townsend at [facility] for fistula b/w vagina, colon. Get [...] 08/06/1545 Date of Service: 08/06/1545 Status: Signed Project Coordinator Rn: Hamilton Drummond RPH (Pharmacist) Note ccl 45.9ml/min [...] | performed at [facility] | | | | | | [address];[place], [place] | | | | | | [address] | | | | + + + [...] | | | | T[facility], [address] [facility] | | | | | | [place] | | | | | | [address] | | | | + + +---- + + + | RED CELL | 3.36 (L)Comment: Testing | 3.7 0 - 5.10 | EXTERNAL | | | COUNT | performed at [facility], [address] | M/u L | LAB | | | | [address] [place], | | | | | | [place] [address] | | | | + + +---- + + + | Hgb | 7.8 (L)Comment: Testing | 11. 3 - 15.5 | EXTERNAL | | | | performed at [facility], [address] | g/d L | LAB | | | | [address], | | | | | | [place] [address] | | | | + + +---- + + + | Hematocrit, | 26.6 (L)Comment: Testing | 34. 0 - 46.0 % | EXTERNAL | | | POC | performed at [facility], [address] | | LAB | | | | [place] [place], | | | | | | [place] [address] | | | | + + +---- + + + | MCV | 79.1 (L)Comment: Testing | 80. 0 - 100.0 fl | EXTERNAL | | | | performed at [facility], [address] | | LAB | | | | [place], | | | | | | [place] [address] | | | | + + +---- + + + | MCH | 23.2 (L)Comment: Testing | 27. 0 - 34.0 pg | EXTERNAL | | | | performed at [facility], [address] | | LAB | | | | [address] [place], | | | | | | [place] [address] | | | | + + +---- + + + | MCHC | 29.3 (L)Comment: Testing | 32. 0 - 35.5 | EXTERNAL | | | | performed at [facility], [address] | g/d L | LAB | | | | [address] [place], | | | | | | [place] [address] | | | | + + +---- + + + | RDW-CV | 61.7 (H)Comment: Testing | 37 - 53 fl | EXTERNAL | | | | performed at [facility], [address] | | LAB | | | | [address] [place], | | | | | | [place] [address] | | | | + + +---- + + + | Platelet | 418 (H)Comment: Testing | 150 - 400 K/uL | EXTERNAL | | | Count | performed at [facility], [address] | | LAB | | | Plasma | [address] [place], | | | | | | [place] [address] | | | | + + +---- + + + | MPV | 8.3Comment: Testing | fl | EXTERNAL | | | | performed at [facility], [address] | | LAB | | | | [address], | | | | | | [place] [address] | | | | + + +---- + + + | Differentia | AUTOMATEDComment: | | EXTERNAL | | | l Type | Testing performed at | | LAB | | | | [facility], [address] | | | | | | [place] | | | | | | [address] | | | | + + +---- + + + | % Segmented | 59.50Comment: Testing | % | EXTERNAL | | | | performed at [facility], [address] | | LAB | | | Neutrophils | [address] [place], | | | | | | [place] [address] | | | | + + +---- + + + | % | 29.26Comment: Testing | % | EXTERNAL | | | Lymphocytes | performed at [facility], [address] | | LAB | | | | [address], | | | | | | [place] [address] | | | | + + +---- + + + | % Monocytes | 9.64Comment: Testing | % | EXTERNAL | | | | performed at [facility], [address] | | LAB | | | | [place], | | | | | | [place] [address] | | | | + + +---- + + + | % | 0.54Comment: Testing | % | EXTERNAL | | | Eosinophils | performed at [facility], [address] | | LAB | | | | [place], | | | | | | [place] [address] | | | | + + +---- + + + | % Basophils | 1.06Comment: Testing | % | EXTERNAL | | | | performed at [facility], [address] | | LAB | | | | [place], | | | | | | [place] [address] | | | | + + +---- + + + | Absolute | 9.61 (H)Comment: Testing | 1.9 0 - 7.40 | EXTERNAL | | | Segmented | performed at [facility], [address] | K/u L | LAB | | | Neutrophils | [address], | | | | | | [place] [address] | | | | + + +---- + + + | Absolute | 4.73 (H)Comment: Testing | 1.0 0 - 3.90 | EXTERNAL | | | Lymphocytes | performed at [facility], [address] | K/u L | LAB | | | | [address], | | | | | | [place] [address] | | | | + + +---- + + + | Absolute | 1.56 (H)Comment: Testing | 0.0 0 - 0.80 | EXTERNAL | | | Monocytes | performed at [facility], [address] | K/u L | LAB | | | | [address] [place], | | | | | | [place] [address] | | | | + + +---- + + + | Absolute | 0.09Comment: Testing | 0.0 0 - 0.50 | EXTERNAL | | | Eosinophils | performed at [facility], [address] | K/u L | LAB | | | | [address] [place], | | | | | | [place] [address] | | | | + + +---- + + + | Absolute | 0.17 (H)Comment: Testing | 0.0 0 - 0.10 | EXTERNAL | | | Basophils | performed at [facility], [address] | K/u L | LAB | | | | [address] [place], | | | | | | [place] [address] | | | | + + +---- + + + | RBC | 2+Comment: | | EXTERNAL | | | Morphology | ANISO1+HYPO1+MICRO2+TARG | | LAB | | | | ETNORMAL PLT | | | | | | MORPHTesting performed | | | | | | at [facility], [address] | | | | | | [place], | | | | | | [place] [address] | | | | | |2+ | | | | | |TARGET | | | | | |NORMAL PLT MORPH | | | | | |Testing performed at [facility], [facility] [place] [address] | | | | | | | | | | + + +---- + + + | Differentia | SLIDE SCANNED, AGREES | | EXTERNAL | | | l Comments | WITH AUTOMATED | | LAB | | | | RESULTS.Comment: Testing | | | | | | performed at [facility], [address] | | | | | | [address], | | | | | | [place] [address] | | | | + + +---- [...] L | LAB | | | | [facility], [address] | | | | | | [place] | | | | | | [address] | | | | + + +---- + + + | RED CELL | 3.47 (L)Comment: Testing | 3.7 0 - 5.10 | EXTERNAL | | | COUNT | performed at [facility], [address] | M/u L | LAB | | | | [address] [place], | | | | | | [place] [address] | | | | + + +---- + + + | Hgb | 8.2 (L)Comment: Testing | 11. 3 - 15.5 | EXTERNAL | | | | performed at [facility], [address] | g/d L | LAB | | | | [place] [place], | | | | | | [place] [address] | | | | + + +---- + + + | Hematocrit, | 27.5 (L)Comment: Testing | 34. 0 - 46.0 % | EXTERNAL | | | POC | performed at [facility], [address] | | LAB | | | | [address] [place], | | | | | | [place] [address] | | | | + + +---- + + + | MCV | 79.1 (L)Comment: Testing | 80. 0 - 100.0 fl | EXTERNAL | | | | performed at [facility], [address] | | LAB | | | | [place], | | | | | | [place] [address] | | | | + + +---- + + + | MCH | 23.6 (L)Comment: Testing | 27. 0 - 34.0 pg | EXTERNAL | | | | performed at [facility], [address] | | LAB | | | | [place], | | | | | | [place] [address] | | | | + + +---- + + + | MCHC | 29.8 (L)Comment: Testing | 32. 0 - 35.5 | EXTERNAL | | | | performed at [facility], [address] | g/d L | LAB | | | | [address] [place], | | | | | | [place] [address] | | | | + + +---- + + + | RDW-CV | 62.1 (H)Comment: Testing | 37 - 53 fl | EXTERNAL | | | | performed at [facility], [address] | | LAB | | | | [address] [place], | | | | | | [place] [address] | | | | + + +---- + + + | Platelet | 419 (H)Comment: Testing | 150 - 400 K/uL | EXTERNAL | | | Count | performed at [facility], [address] | | LAB | | | Plasma | [address] [place], | | | | | | [place] [address] | | | | + + +---- + + + | MPV | 8.3Comment: Testing | fl | EXTERNAL | | | | performed at [facility], [address] | | LAB | | | | [place], | | | | | | [place] [address] | | | | + + +---- + + + | Differentia | AUTOMATEDComment: | | EXTERNAL | | | l Type | Testing performed at | | LAB | | | | [facility], [address] | | | | | | [place] | | | | | | [address] | | | | + + +---- + + + | % Segmented | 82.12Comment: Testing | % | EXTERNAL | | | | performed at [facility], [address] | | LAB | | | Neutrophils | [address], | | | | | | [place] [address] | | | | + + +---- + + + | % | 10.53Comment: Testing | % | EXTERNAL | | | Lymphocytes | performed at [facility], [address] | | LAB | | | | [address], | | | | | | [place] [address] | | | | + + +---- + + + | % Monocytes | 6.70Comment: Testing | % | EXTERNAL | | | | performed at [facility], [address] | | LAB | | | | [address], | | | | | | [place] [address] | | | | + + +---- + + + | % | 0.05Comment: Testing | % | EXTERNAL | | | Eosinophils | performed at [facility], [address] | | LAB | | | | [place], | | | | | | [place] [address] | | | | + + +---- + + + | % Basophils | 0.60Comment: Testing | % | EXTERNAL | | | | performed at [facility], [address] | | LAB | | | | [place], | | | | | | [place] [address] | | | | + + +---- + + + | Absolute | 15.31 (H)Comment: | 1.9 0 - 7.40 | EXTERNAL | | | Segmented | Testing performed at | K/u L | LAB | | | Neutrophils | [facility], [address] | | | | | | [place] | | | | | | [address] | | | | + + +---- + + + | Absolute | 1.96Comment: Testing | 1.0 0 - 3.90 | EXTERNAL | | | Lymphocytes | performed at [facility], [address] | K/u L | LAB | | | | [address], | | | | | | [place] [address] | | | | + + +---- + + + | Absolute | 1.25 (H)Comment: Testing | 0.0 0 - 0.80 | EXTERNAL | | | Monocytes | performed at [facility], [address] | K/u L | LAB | | | | [address], | | | | | | [place] [address] | | | | + + +---- + + + | Absolute | 0.01Comment: Testing | 0.0 0 - 0.50 | EXTERNAL | | | Eosinophils | performed at [facility], [address] | K/u L | LAB | | | | [address] [place], | | | | | | [place] [address] | | | | + + +---- + + + | Absolute | 0.11 (H)Comment: Testing | 0.0 0 - 0.10 | EXTERNAL | | | Basophils | performed at [facility], [address] | K/u L | LAB | | | | [address] [place], | | | | | | [place] [address] | | | | + + +---- + + + | RBC | 2+Comment: | | EXTERNAL | | | Morphology | ANISO2+HYPO1+TARGET1+POI | | LAB | | | | KNORMAL PLT MORPHTesting | | | | | | performed at [facility], [address] | | | | | | [address] [facility], | | | | | | [place] [address] | | | | | |TARGET | | | | | |1+ | | | | | |POIK | | | | | |NORMAL PLT MORPH | | | | | |Testing performed at [facility], [address] [place] [address] | | | | | | | [...] | LAB | | | | [address] | | | | | | [address] | | | | + + + [...] | performed at [facility] | | LAB | | | | [address];[place], [place] | | | | | | [address] | | | | + + + [...] | LAB | | | | [address];[place], [place] | | | | | | [address] | | | | + + + [...] | LAB | | | | [address];[place], [place] | | | | | | [address] | | | | + + + [...] | LAB | | | | [address] [place] | | | | | | [address] [...] LAB | | Testing performed at [facility];[address] [place] [address];[place] [address] TOXIN A | | | NEGATIVE Testing performed | | | at [facility];[address] [place] [address];[place] [address] C DIFF INTERPRETATION | | | Positive [...] toxin. Testing | | | performed at [facility];[address] [facility];[place] [address] | | + + + + +---------+ [...] LAB | | C.diffAbnormal Testing performed at [facility];[address] [place] [address];[place], [place] | | | [phone] NAP1 BI 027 NAP1 BI | | | PRESUMPTIVE NEGATIVE Detection of 027 NAP1 BI strains of C. difficile | | | is presumptive and for epidemiological purposes and not intended to | | | guide or monitor treatment for C. difficile infections. Testing | | | performed at [facility];[address] [place] [address];[place] [address] | | + + + + +---------+ [...] at [facility];[address] | g/dL | LAB | | | | [address] | | | | | | [address] | | | | + + + + + + | Hematocrit, | 29.1 (L)Comment: Testing | 34.0 - 46.0 % | EXTERNAL | | | POC | performed at [facility];[address] | | LAB | | | | [address];[place], [place] | | | | | | [address] | | | | + + + [...] at [facility];[address] | g/dL | LAB | | | | [address] [place] | | | | | | [address] | | | | + + + + + + | Hematocrit, | 28.9 (L)Comment: Testing | 34.0 - 46.0 % | EXTERNAL | | | POC | performed at [facility];[address] | | LAB | | | | [address] [place] | | | | | | [address] | | | | + + + [...] | LAB | | | | [address];[place], [place] | | | | | | [address] | | | | + + + [...] | | | | | | [address];[place], [place] | | | | | | [address] | | | | + + + [...] [place] | | | | | | [address] | | | | + + +---- + + + | RED CELL | 3.89Comment: Testing | 3.7 0 - 5.10 | EXTERNAL | | | COUNT | performed at [facility], [address] | M/u L | LAB | | | | [address] [place], | | | | | | [place] [address] | | | | + + +---- + + + | Hgb | 9.1 (L)Comment: Testing | 11. 3 - 15.5 | EXTERNAL | | | | performed at [facility], [address] | g/d L | LAB | | | | [address] [place], | | | | | | [place] [address] | | | | + + +---- + + + | Hematocrit, | 30.7 (L)Comment: Testing | 34. 0 - 46.0 % | EXTERNAL | | | POC | performed at [facility], [address] | | LAB | | | | [address] [place], | | | | | | [place] [address] | | | | + + +---- + + + | MCV | 78.9 (L)Comment: Testing | 80. 0 - 100.0 fl | EXTERNAL | | | | performed at [facility], [address] | | LAB | | | | [address] [place], | | | | | | [place] [address] | | | | + + +---- + + + | MCH | 23.4 (L)Comment: Testing | 27. 0 - 34.0 pg | EXTERNAL | | | | performed at [facility], [address] | | LAB | | | | [address] [place], | | | | | | [place] [address] | | | | + + +---- + + + | MCHC | 29.7 (L)Comment: Testing | 32. 0 - 35.5 | EXTERNAL | | | | performed at [facility], [address] | g/d L | LAB | | | | [address] [place], | | | | | | [place] [address] | | | | + + +---- + + + | RDW-CV | 63.9 (H)Comment: Testing | 37 - 53 fl | EXTERNAL | | | | performed at [facility], [address] | | LAB | | | | [address] [place], | | | | | | [place] [address] | | | | + + +---- + + + | Platelet | 436 (H)Comment: Testing | 150 - 400 K/uL | EXTERNAL | | | Count | performed at [facility], [address] | | LAB | | | Plasma | [address] [place], | | | | | | [place] [address] | | | | + + +---- + + + | MPV | 8.1Comment: Testing | fl | EXTERNAL | | | | performed at [facility], [address] | | LAB | | | | [place] [place], | | | | | | [place] [address] | | | | + + +---- + + + | Differentia | AUTOMATEDComment: | | EXTERNAL | | | l Type | Testing performed at | | LAB | | | | [facility], [address] | | | | | | [place] | | | | | | [address] | | | | + + +---- + + + | % Segmented | 78.91Comment: Testing | % | EXTERNAL | | | | performed at [facility], [address] | | LAB | | | Neutrophils | [place], | | | | | | [place] [address] | | | | + + +---- + + + | % | 15.10Comment: Testing | % | EXTERNAL | | | Lymphocytes | performed at [facility], [address] | | LAB | | | | [place], | | | | | | [place] [address] | | | | + + +---- + + + | % Monocytes | 5.31Comment: Testing | % | EXTERNAL | | | | performed at [facility], [address] | | LAB | | | | [address], | | | | | | [place] [address] | | | | + + +---- + + + | % | 0.03Comment: Testing | % | EXTERNAL | | | Eosinophils | performed at [facility], [address] | | LAB | | | | [address], | | | | | | [place] [address] | | | | + + +---- + + + | % Basophils | 0.65Comment: Testing | % | EXTERNAL | | | | performed at [facility], [address] | | LAB | | | | [address], | | | | | | [place] [address] | | | | + + +---- + + + | Absolute | 18.14 (H)Comment: | 1.9 0 - 7.40 | EXTERNAL | | | Segmented | Testing performed at | K/u L | LAB | | | Neutrophils | [facility], [address] | | | | | | [place] | | | | | | [address] | | | | + + +---- + + + | Absolute | 3.47Comment: Testing | 1.0 0 - 3.90 | EXTERNAL | | | Lymphocytes | performed at [facility], [address] | K/u L | LAB | | | | [address] [place], | | | | | | [place] [address] | | | | + + +---- + + + | Absolute | 1.22 (H)Comment: Testing | 0.0 0 - 0.80 | EXTERNAL | | | Monocytes | performed at [facility], [address] | K/u L | LAB | | | | [address] [place], | | | | | | [place] [address] | | | | + + +---- + + + | Absolute | 0.01Comment: Testing | 0.0 0 - 0.50 | EXTERNAL | | | Eosinophils | performed at [facility], [address] | K/u L | LAB | | | | [address] [place], | | | | | | [place] [address] | | | | + + +---- + + + | Absolute | 0.15 (H)Comment: Testing | 0.0 0 - 0.10 | EXTERNAL | | | Basophils | performed at [facility], [address] | LAB | | | | [address], | | | | | | [place] [address] | | | | + + +---- + + + | RBC | 2+Comment: | | EXTERNAL | | | Morphology | ANISO1+POLY2+HYPO1+MICRO | | LAB | | | | 1+TARGETNORMAL PLT | | | | | | MORPHTesting performed | | | | | | at [facility], [address] | | | | | | [facility], | | | | | | [place] [address] | | | | | |1+ | | | | | |MICRO | | | | | |1+ | | | | | |TARGET | | | | | |NORMAL PLT MORPH | | | | | |Testing performed at [facility], [address] [place] [address] | | | | | | | [...] | | | | | [place] [address] | | | | + + + [...] EXTERNAL | | | | performed at [facility], [address] | | LAB | | | | [address], | | | | | | [place] [address] | | | | + + [...] | | | | | [place] [address] | | | | + + + + + + | K | 3.5Comment: Testing | 3.5 - 4.9 | EXTERNAL | | | | performed at [facility], [address] | mmol/L | LAB | | | | [address], | | | | | | [place] [address] | | | | + + + + + + | Cl | 105Comment: Testing | 99 - 109 mmol/L | EXTERNAL | | | | performed at [facility], [address] | | LAB | | | | [address], | | | | | | [place] [address] | | | | + + + + + + | CO2 | 22 (L)Comment: Testing | 23 - 32 mmol/L | EXTERNAL | | | | performed at [facility], [address] | | LAB | | | | [address], | | | | | | [place] [address] | | | | + + + + + + | Anion Gap | 14Comment: Testing | 5 - 20 mmol/L | EXTERNAL | | | | performed at [facility], [address] | | LAB | | | | [address], | | | | | | [place] [address] | | | | + + + [...] | | | | | [place] [address] | | | | + + + + + + | Creatinine | 1.07 (H)Comment: Testing | 0.50 - 1.00 | EXTERNAL | | | | performed at [facility], [address] | mg/dL | LAB | | | | [address], | | | | | | [place] [address] | | | | + + + + + + | BUN/Creatin | 34Comment: Testing | | EXTERNAL | | | ine Ratio | performed at [facility], [address] | | LAB | | | | [address], | | | | | | [place] [address] | | | | + + + + + + | Calcium | 7.0 (L)Comment: Testing | 8.5 - 10.5 | EXTERNAL | | | | performed at [facility], [address] | mg/dL | LAB | | | | [address], | | | | | | [place] [address] | | | | + + + + + + | Protein, | 5.9 (L)Comment: Testing | 6.3 - 8.2 g/dL | EXTERNAL | | | Total | performed at [facility], [address] | | LAB | | | | [address], | | | | | | [place] [address] | | | | + + + + + + | Albumin | 2.9 (L)Comment: Testing | 3.6 - 5.0 g/dL | EXTERNAL | | | | performed at [facility], [address] | | LAB | | | | [address], | | | | | | [place] [address] | | | | + + + + + + | Globulin | 3.0Comment: Testing | 1.3 - 4.9 g/dL | EXTERNAL | | | | performed at [facility], [address] | | LAB | | | | [place] [place], | | | | | | [place] [address] | | | | + + + + + + | A/G Ratio | 1.0Comment: Testing | 1.0 - 2.4 | EXTERNAL | | | | performed at [facility], [address] | | LAB | | | | [address], | | | | | | [place] [address] | | | | + + + + + + | Bilirubin | 0.8Comment: Testing | 0.1 - 1.5 mg/dL | EXTERNAL | | | Total | performed at [facility], [address] | | LAB | | | | [address], | | | | | | [place] [address] | | | | + + + + + + | ALP, | 148 (H)Comment: Testing | 35 - 115 U/L | EXTERNAL | | | External | performed at [facility], [address] | | LAB | | | [address], | | | | | | [place] [address] | | | | + + + + + + | AST | 34Comment: Testing | 10 - 45 U/L | EXTERNAL | | | | performed at [facility], [address] | | LAB | | | | [address], | | | | | | [place] [address] | | | | + + + + + + | ALT | 39Comment: Testing | 10 - 65 U/L | EXTERNAL | | | | performed at [facility], [address] | | LAB | | | | [address], | | | | | | [place] [address] | | | | + + + [...] [place], | | | | | | [place] [address] | | | | + + + [...] at [facility];888 | g/dL | LAB | | | | [address];[place] | | | | | | [address] | | | | + + + + + + | Hematocrit, | 32.0 (L)Comment: Testing | 34.0 - 46.0 % | EXTERNAL | | | POC | performed at [facility];888 | | LAB | | | | [address] [place] | | | | | | [address] | | | | + + + [...] EXTERNAL | | | | performed at [facility], [address] | | LAB | | | | [place], | | | | | | [place] [address] | | | | + + + + + + | RBC, UA | 1-5Comment: Testing | 0 - 5 /hpf | EXTERNAL | | | | performed at [facility], [address] | | LAB | | | | [place], | | | | | | [place] [address] | | | | + + + + + + | Epithelial | 1-5Comment: Testing | /lpf | EXTERNAL | | | Cells | performed at [facility], [address] | | LAB | | | | [place] [place], | | | | | | [place] [address] | | | | + + + + + + | Bacteria, | NONE SEENComment: | | EXTERNAL | | | UA | Testing performed at | | LAB | | | | [facility], [address] | | | | | | [place] | | | | | | [address] | | | | + + + [...] | | | | | [place] [address] | | | | + + + + + + | Clarity | TURBIDComment: Testing | | EXTERNAL | | | | performed at [facility], [address] | | LAB | | | | [address] [place], | | | | | | [place] [address] | | | | + + + + + + | Specific | 1.018Comment: Testing | 1.002 - 1.030 | EXTERNAL | | | [place] | performed at [facility], [address] | | LAB | | | | [place] [place], | | | | | | [place] [address] | | | | + + + + + + | Leukocyte | LARGE (A)Comment: | | EXTERNAL | | | Esterase, | Testing performed at | | LAB | | | Urine | [facility], [address] | | | | | | [place] | | | | | | [address] | | | | + + + + + + | Nitrite, | NEGATIVEComment: Testing | | EXTERNAL | | | Urine | performed at [facility], [address] | | LAB | | | | [address], | | | | | | [place], [place] [address] | | | | + + + + + + | Urobilinoge | 0.2Comment: Testing | mg/dL | EXTERNAL | | | n, Urine | performed at [facility], [address] | | LAB | | | | [address], | | | | | | [place], [place] [address] | | | | + + + [...] | | | | | [place] [address] | | | | + + + + + + | Blood, | MODERATE (A)Comment: | | EXTERNAL | | | Urine | Testing performed at | | LAB | | | | [facility], [address] | | | | | | [place] | | | | | | [address] | | | | + + + [...] [place] | | | | | | [address] | | | | + + + + + + | Glucose, | NEGATIVEComment: Testing | mg/dL | EXTERNAL | | | Urine | performed at [facility], [address] | | LAB | | | | [address], | | | | | | [place] [address] | | | | + + + [...] | | | | | | [place], [place] | | | | | | [address] | | | | + + + [...] L | LAB | | | | [facility], [address] | | | | | | [place] | | | | | | [address] | | | | + + +---- + + + | RED CELL | 4.26Comment: Testing | 3.7 0 - 5.10 | EXTERNAL | | | COUNT | performed at [facility], [address] | M/u L | LAB | | | | [address] [place], | | | | | | [place] [address] | | | | + + +---- + + + | Hgb | 10.3 (L)Comment: Testing | 11. 3 - 15.5 | EXTERNAL | | | | performed at [facility], [address] | g/d L | LAB | | | | [address] [place], | | | | | | [place] [address] | | | | + + +---- + + + | Hematocrit, | 33.2 (L)Comment: Testing | 34. 0 - 46.0 % | EXTERNAL | | | POC | performed at [facility], [address] | | LAB | | | | [address] [place], | | | | | | [place] [address] | | | | + + +---- + + + | MCV | 77.9 (L)Comment: Testing | 80. 0 - 100.0 fl | EXTERNAL | | | | performed at [facility], [address] | | LAB | | | | [address] [place], | | | | | | [place] [address] | | | | + + +---- + + + | MCH | 24.1 (L)Comment: Testing | 27. 0 - 34.0 pg | EXTERNAL | | | | performed at [facility], [address] | | LAB | | | | [address] [place], | | | | | | [place] [address] | | | | + + +---- + + + | MCHC | 30.9 (L)Comment: Testing | 32. 0 - 35.5 | EXTERNAL | | | | performed at [facility], [address] | g/d L | LAB | | | | [address] [place], | | | | | | [place] [address] | | | | + + +---- + + + | RDW-CV | 61.3 (H)Comment: Testing | 37 - 53 fl | EXTERNAL | | | | performed at [facility], [address] | | LAB | | | | [address] [place], | | | | | | [place] [address] | | | | + + +---- + + + | Platelet | 445 (H)Comment: Testing | 150 - 400 K/uL | EXTERNAL | | | Count | performed at [facility], [address] | | LAB | | | Plasma | [place] [place], | | | | | | [place] [address] | | | | + + +---- + + + | MPV | 8.6Comment: Testing | fl | EXTERNAL | | | | performed at [facility], [address] | | LAB | | | | [place], | | | | | | [place] [address] | | | | + + +---- + + + | Differentia | MANUALComment: Testing | | EXTERNAL | | | l Type | performed at [facility], [address] | | LAB | | | | [place], | | | | | | [place] [address] | | | | + + +---- + + + | Segmented | 77Comment: Testing | % | EXTERNAL | | | Neutrophils | performed at [facility], [address] | | LAB | | | Manual | [place], | | | | | | [place] [address] | | | | + + +---- + + + | Lymphocytes | 14Comment: Testing | % | EXTERNAL | | | Manual | performed at [facility], [address] | | LAB | | | | [place], | | | | | | [place] [address] | | | | + + +---- + + + | Monocytes | 9Comment: Testing | % | EXTERNAL | | | Manual | performed at [facility], [address] | | LAB | | | | [place], | | | | | | [place] [address] | | | | + + +---- + + + | Absolute | 22.20 (H)Comment: | 1.9 0 - 7.40 | EXTERNAL | | | Neutrophils | Testing performed at | K/u L | LAB | | | | [facility], [address] | | | | | | [place] | | | | | | [address] | | | | + + +---- + + + | Absolute | 4.04 (H)Comment: Testing | 1.0 0 - 3.90 | EXTERNAL | | | Lymphocytes | performed at [facility], [address] | K/u L | LAB | | | | [address], | | | | | | [place] [address] | | | | + + +---- + + + | Absolute | 2.59 (H)Comment: Testing | 0.0 0 - 0.80 | EXTERNAL | | | Monocytes | performed at [facility], [facility] | K/u L | LAB | | | | [address] [place], | | | | | | [place] [address] | | | | + + +---- + + + | RBC | 1+Comment: | | EXTERNAL | | | Morphology | ANISO1+POIK2+HYPO1+MICRO | | LAB | | | | 1+TARGETNORMAL PLT | | | | | | MORPHTesting performed | | | | | | at [facility], [facility] [address] | | | | | | [place], | | | | | | [place] [address] | | | | | |1+ | | | | | |MICRO | | | | | |1+ | | | | | |TARGET | | | | | |NORMAL PLT MORPH | | | | | |Testing performed at [facility], [address] [place] [address] | | | | | | | [...] | | | | | [place] [address] | | | | + + + + + + | K | 2.9 (L)Comment: Testing | 3.5 - 4.9 | EXTERNAL | | | | performed at [facility], [address] | mmol/L | LAB | | | | [place], | | | | | | [place] [address] | | | | + + + + + + | Cl | 98 (L)Comment: Testing | 99 - 109 mmol/L | EXTERNAL | | | | performed at [facility], [address] | | LAB | | | | [address], | | | | | | [place], [place] [address] | | | | + + + + + + | CO2 | 22 (L)Comment: Testing | 23 - 32 mmol/L | EXTERNAL | | | | performed at [facility], [address] | | LAB | | | | [address], | | | | | | [place], [place] [address] | | | | + + + + + + | Anion Gap | 16Comment: Testing | 5 - 20 mmol/L | EXTERNAL | | | | performed at [facility], [address] | | LAB | | | | [address], | | | | | | [place] [address] | | | | + + + + + + | Glucose, | 89Comment: Testing | 65 - 99 mg/dL | EXTERNAL | | | Fasting | performed at [facility], [address] | | LAB | | | | [address], | | | | | | [place] [address] | | | | + + + + + + | BUN | 39 (H)Comment: Testing | 8 - 25 mg/dL | EXTERNAL | | | | performed at [facility], [address] | | LAB | | | [address], | | | | | | [place] [address] | | | | + + + + + + | Creatinine | 1.49 (H)Comment: Testing | 0.50 - 1.00 | EXTERNAL | | | | performed at [facility], [address] | mg/dL | LAB | | | | [address], | | | | | | [place] [address] | | | | + + + + + + | BUN/Creatin | 26Comment: Testing | | EXTERNAL | | | ine Ratio | performed at [facility], [address] | | LAB | | | | [address], | | | | | | [place] [address] | | | | + + + + + + | Calcium | 7.5 (L)Comment: Testing | 8.5 - 10.5 | EXTERNAL | | | | performed at [facility], [address] | mg/dL | LAB | | | | [place], | | | | | | [place] [address] | | | | + + + + + + | Protein, | 6.8Comment: Testing | 6.3 - 8.2 g/dL | EXTERNAL | | | Total | performed at [facility], [address] | | LAB | | | | [place], | | | | | | [place] [address] | | | | + + + + + + | Albumin | 3.4 (L)Comment: Testing | 3.6 - 5.0 g/dL | EXTERNAL | | | | performed at [facility], [address] | | LAB | | | | [place], | | | | | | [place] [address] | | | | + + + + + + | Globulin | 3.4Comment: Testing | 1.3 - 4.9 g/dL | EXTERNAL | | | | performed at [facility], [address] | | LAB | | | | [facility] [address] [address], | | | | | | [place] [address] | | | | + + + + + + | A/G Ratio | 1.0Comment: Testing | 1.0 - 2.4 | EXTERNAL | | | | performed at [facility], [address] | | LAB | | | | [address], | | | | | | [place] [address] | | | | + + + + + + | Bilirubin | 0.8Comment: Testing | 0.1 - 1.5 mg/dL | EXTERNAL | | | Total | performed at [facility], [address] | | LAB | | | | [address], | | | | | | [place] [address] | | | | + + + + + + | ALP, | 183 (H)Comment: Testing | 35 - 115 U/L | EXTERNAL | | | External | performed at [facility], [address] | | LAB | | | | [place] [place], | | | | | | [place] [address] | | | | + + + + + + | AST | 48 (H)Comment: Testing | 10 - 45 U/L | EXTERNAL | | | | performed at [facility], [address] | | LAB | | | | [address], | | | | | | [place] [address] | | | | + + + + + + | ALT | 56Comment: Testing | 10 - 65 U/L | EXTERNAL | | | | performed at [facility], [address] | | LAB | | | | [address], | | | | | | [place] [address] | | | | + + + [...] [place], | | | | | | [place] [address] | | | | + + + [...]
--- OUTSIDE RECORDS SUMMARY | ~2019-03-09 | XMS | Encounter Summary ---
Demographics + + + | Address | [address] | | | [place] [address] | + + + | Home Phone [...] Author | [facility] | + + + | Organization | [facility] | + + + | Address | Unknown | + + + | Phone | Unavailable | + + + Support + + + + + | Name | Relationship | Address | Phone | + + + + + | Kole Hartley | LAMONT | [address] | | | | | [place], [place] | | | | | [address] | | + + + + + | Cami Sawyer | ECON | Unknown | | + + + + + Care Team Providers + +------+ + | Care Billboard Poster Name | Role | Phone | + [...] [address] | | | | | [place], [place] | [address] | | | 05/13/ | | | [place], [place] | | | 2014 | | [phone] | [address] | | | | | | [phone] | | | | | | | | | | | | Jf Wiseman MD | | | | | | [address] | | | | | | [address] | | | | | | [place], [place] | | | | | | [address] | | | | | | [phone] | | | | | | | [...] [facility] DEPARTMENT OF SURGERY EMERGENCY GENERAL SURGERY Division [...] continued to progress and is discharged to group home facility for formerly [facility] care. 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 while anticoagulated with warfarin transferred to [facility] from [facility] for hanh [...] diet Discharge [place]: [place] [id number] pager number [facility] [address] [facility] [place] [address] ean-Claude Albrecht DM D, MD - 05/12/2014 7:56 AM PST [facility] Department of Surgery Progress Note Author: Jean-Claude Albrecht MD General Surgery Resident Attending Physician: Jf Wiseman MD GENERAL SURGERY Progress Note: Hospital Day #: 19 ATTENDING: Jf Wiseman MD Identification: Mackenzie Hartley is a 58 year old female with COPD, Crohn's disease, chronic pa in, and 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 [facility] [address] [place] [address] This assessment and plan was formulated both [...] MD - 05/11/2014 8:51 AM PST . 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 [facility] [address] [place] [address] This assessment and plan was formulated both [...] being active. Pt's has been at the [facility] supporting her. Pt is not baptism but appreciates support. Intervention: Provided a listening presence and explored pt's anxieties, worries and hopes. Plan: Spiritual care remains available. 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..] might be different from the orig formerly [facility]. 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 while anticoagulated with warfar in transferred to [facility] from [facility] for management [...] thrombosis while anticoagulated with warfarin transferred to [facility] from [facility] for management [...] know if she wants to see the [facility] GI team - Stage I pressure [...] recommending VIBRA since would be close to [facility] and she would benefit for aggres [...] intestine with complication 03/12/2012 ANDREW VINCENT MD [facility] [address] [place] [address] This assessment and plan was [...] might be different from the orig inal. 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 while anticoagulated with warfar in transferred to [facility] from [facility] for management [...] TROPONIN Imaging No new Cultures BLOOD CULTURE [facility] (no units) Date Value Range Status [...] thrombosis while anticoagulated with warfarin transferred to [facility] from [facility] for management [...] know if she wants to see the [facility] GI team - Stage I pressure [...] recommending SONIAA since would be close to [facility] and she would benefit for aggres [...] intestine with complication 03/12/2012 ANDREW VINCENT MD [facility] [address] [place] [address] This assessment and plan was formulated [...] this note might be different from the [facility] Department of Surgery Progress Note Author: Andrew Vincent MD General Surgery Resident Attending Physician: Jf Wiseman MD GENERAL SURGERY Progress Note: Hospital Day #: 14 ATTENDING: Jf Wiseman MD Identification: Mackenzie Hartley is a 58 year old female with COPD, Crohn's disease, chronic pa in, and 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 while anticoagulated with warfar in transferred to [facility] from [facility] for management [...] TROPONIN Imaging No new Cultures BLOOD CULTURE [facility] (no units) Date Value Range Status [...] thrombosis while anticoagulated with warfarin transferred to [facility] from [facility] for management [...] intestine with complication 03/12/2012 ANDREW VINCENT MD [facility] [address] [place] [address] This assessment and plan was formulated both [...] might be different from the orig [facility]. 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 while anticoagulated with warfar in transferred to [facility] from [facility] for management [...] TROPONIN Imaging No new Cultures BLOOD CULTURE [facility] (no units) Date Value Range Status [...] thrombosis while anticoagulated with warfarin transferred to [facility] from [facility] for management [...] continued DHT,TF - Diet: NPO - per BUILDINGS AND GROUNDS SUPERVISOR, high risk of aspiration - continue [...] intestine with complication 03/12/2012 ANDREW VINCENT MD [facility] [address] [place] [address] This assessment and plan was formulated both [...] might be different from the orig inal. 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 PHIL VARMA MD [facility] [address] [place] [address] Rosa Sauer MD - 05/04/2014 8:26 AM [...] at referring hospital. She was transferred to [facility] f or active hemorrhage and underwent [...] rounds. Rosa Reynoso, R2 SICU/Trauma Personal pager: [phone] Team pager: [phone] Angeles Acevedo MD - 05/04/2014 7:08 AM PST [facility] DEPARTMENT OF SURGERY EGS ICU Progress Note Division of Trauma and Critical Care ID: Mackenzie Hartley is a 58 year old female with COPD, Crohn's disease, chronic pain, and 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 while anticoagulated with warfarin transferre d to [facility] from [facility] for management [...] 10 mg, 10 mg, rectal, DAILY PRN, aMrge Harris PA-C enoxaparin (LOVENOX) injection 90 mg, [...] thrombosis while anticoagulated with warfarin transferred to [facility] from [facility] for management of retroperitoneal bleed. She has required repeated transfers to ICU for respiratory status. She has been diuresed ap propriately while in the ICU and O2 needs have decreased significantly. [facility] transfer [facility] or, but need to keep [...] Hannah MD General Surgery Resident, R3 Pager [phone] [facility] [place] [address] [address] [facility] [address] Jf Jones MD - 05/03/2014 9:38 AM [...] - TF at goal, + BM Dysphagia: BUILDINGS AND GROUNDS SUPERVISOR following- remains NPO Anasarca: compression socks,. [...] Call team 01/11 for questions: Team Pager [phone] ATTENDING ADDENDUM: I saw and examined Mackenzie [...] Erin Christensen PA-C. Jf Wiseman MD FACS rug drying machine operator Division of Trauma, Critical Care, and Acute Care Surgery [id number] Elda Emmanuel MD - 05/03/2014 3:49 AM PST EMERGENCY GENERAL SURGERY ICU PROGRESS NOTE: Attending Physician: Jf Wiseman MD 05/03/2014 ID: Mackenzie Hartley is a 58 year old female with COPD, Crohn's disease, chronic pain, and coagulopa thy resulting in splenic artery thrombosis while anticoagulated with warfarin transferred to [facility] from [facility] for management [...] 1 drop, 1 drop, Both Eyes, PRN, Iwllow L Colovos, ACNP ascorbic acid liquid 500 [...] thrombosis while anticoagulated with warfarin transferred to [facility] from [facility] for management [...] this patient encounter. Elda Glez MD Pager [phone] Plastic Surgery R2 [facility] Diagnoses: 555.2 Crohn's disease of both [...] Remicade- will consult hematology in [facility] regarding of timing of resuming remicade Severe malnutrition: - TF at goal, + BM, Dysphagia: BUILDINGS AND GROUNDS SUPERVISOR following- remains NPO Anasarca: compression socks,. [...] Call team 01/11 for questions: Team Pager [phone] ATTENDING ADDENDUM: I saw and examined Mackenzie [...] Marge Harris PA-C. Jf Wiseman MD FACS rug drying machine operator Division of Trauma, Critical Care, and Acute Care Surgery [id number] GIAHarAngeles oglesby MD - 05/02/2014 6:55 AM PST [facility] DEPARTMENT OF SURGERY EGS ICU Progress Note Division of Trauma and Critical Care ID: Mackenzie Hartley is a 58 year old female with COPD, Crohn's disease, chronic pain, and 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 while anticoagulated with warfarin transferre d to [facility] from [facility] for management [...] thrombosis while anticoagulated with warfarin transferred to [facility] from [facility] for management [...] Hannah MD General Surgery Resident, R3 Pager [phone] [place] [phone] arris, Angeles Hanna MD - 05/02/2014 2:14 [...] Hannah MD General Surgery Resident, R3 Pager [phone] ean-Claude Albrecht DMD, MD - 05/01/2014 10:36 AM PST [facility] DEPARTMENT OF SURGERY EGS Progress Note ID: Mackenzie Hartley is a 58 year old female with COPD, Crohn's disease, chronic pain, and 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 while anticoagulated with warfarin transferre d to [facility] from [facility] for management [...] thrombosis while anticoagulated with warfarin transferred to [facility] from [facility] for management of retroperitoneal bleed. Overall, she is improving. However, remains tachycardic with leukocytosis - WBC [address] 05/01 showed - moderate ascites and pleural effusions and hematoma. Neuro: dilaudid IV PRN Speech: following continue daily to eval swallow CV: HD stable L FIELD SERVICE CONSULTANT PSA resolved Continue IV lasix today 20 [...] acute care hospitalization Jean-Claude Albrecht D.M.D., M.D. [facility] [place] [facility] [place] [address] Jf Jones MD - 04/30/2014 11:08 AM [...] at referring hospital. She was transferred to [facility] fo r active hemorrhage and underwent [...] malnutrition: - pulled DHT- refusing replacement. Await BUILDINGS AND GROUNDS SUPERVISOR eval if passes swallow will give chance to prove adequate po intake. Expect will require TFs again Dysphagia: await BUILDINGS AND GROUNDS SUPERVISOR eval today. Cont meds and feed [...] Call team 01/11 for questions: Team Pager [phone] ATTENDING ADDENDUM: I saw and examined Mackenzie [...] Marge Harris PA-C. Jf Wiseman MD FACS rug drying machine operator Division of Trauma, Critical Care, and Acute Care Surgery [id number] Angeles Acevedo MD - 04/30/2014 1:18 AM PST [facility] DEPARTMENT OF SURGERY EGS ICU Progress Note Division of Trauma and Critical Care ID: Mackenzie Hartley is a 58 year old female with COPD, Crohn's disease, chronic pain, and 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 while anticoagulated with warfarin transferre d to [facility] from [facility] for management [...] thrombosis while anticoagulated with warfarin transferred to [facility] from [facility] for management of retroperitoneal bleed. Overall, she is improving. However, remains tachycardic with leukocytosis -- difficult to t ease out if this is secondary to asplenia. Will obtain CT abd pelvis today to clarify. Neuro: dilaudid IV PRN and intermittent versed for sedation CV: HD stable L FIELD SERVICE CONSULTANT PSA resolved Pulm: titrate to O2 >92% [...] Hannah MD General Surgery Resident, R3 Pager [phone] [facility] [place] [address] [address] [facility] [address] Aravind Morales MD - 04/29/2014 11:43 AM PSTICU Attending: I saw and examined Mackenzie Hartley ([id number]) with Erin Christensen PA-C on 04/29/14 and [...] of time documented by Kaci Massey MD Cattle Manager Trauma, Critical Care & Acute Care Surgery [...] at referring hospital. She was transferred to [facility] fo r active hemorrhage. Hospital Day [...] resolving cont current H2O via DHT Dysphagia: BUILDINGS AND GROUNDS SUPERVISOR consulted, ice chips only. Cont meds [...] Call team 01/11 for questions: Team Pager [phone] Chelly Blum MD,M PH - 04/28/2014 3:03 [...] at referring hospital. She was transferred to [facility] fo r active hemorrhage. Hospital Day [...] Hyernatremia: resolving, reduce H2O to 30ml/hr Dysphagia: BUILDINGS AND GROUNDS SUPERVISOR consulted, ice chips only. Cont meds [...] Call team 01/11 for questions: Team Pager [phone] Angeles Acevedo MD - 04/28/2014 5:18 AM PST [facility] DEPARTMENT OF SURGERY EGS ICU Progress Note Division of Trauma and Critical Care ID: Mackenzie Hartley is a 58 year old female with COPD, Crohn's disease, chronic pain, and 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 while anticoagulated with warfarin transferre d to [facility] from [facility] for management of retroperitoneal bleed. She is s/p ex lap, splenectomy, and packing with lap pads at OSH and from reopening of laparotomy, evacua tion of 2-3 L of intraabdominal hematoma, closure of open abdomen SUBJECTIVE: Extubated, neurologically doing much better. 3 L NC Underwent successful thrombin injection of L FIELD SERVICE CONSULTANT pseudoaneurysm by IR 04/26 MEDICATIONS: Current facility-administered [...] thrombosis while anticoagulated with warfarin transferred to [facility] from [facility] for management of retroperitoneal bleed. Neuro: dilaudid IV PRN and intermittent versed for sedation CV: HD stable Per vascular: arterial duplex of L FIELD SERVICE CONSULTANT to assess for stability of PSA shows [...] Hannah MD General Surgery Resident, R3 Pager [phone] [facility] [place] [address] [place] [facility] [place] [address] Xin Irizarry M D - 04/27/2014 11:55 [...] diagnosti c imaging and laboratory study results [facility] DEPARTMENT: [id number] - HEM FACULTY [facility] Place of Service: - Inpatient Date of Service: 04-27-2014 Modifiers: GC - Resident Involved Suggested CPT: 56502 - Initial, Comp; Mod complex 50 min XIN AGEE MD [facility] [address] [place] [address] wpriya Rudy Markham Adriel - 04/27/2014 11:55 AM PST Hematology Consult Progress Note Primary Service: EGS Primary Attending: Jf Wiseman MD Hospital Length of Stay: 4 Interval Events: - extubated - thrombin injection to FIELD SERVICE CONSULTANT pseudoaneurysm - heparin gtt started last night Subjective: Patient is unable to provide history as she remains encephalopathic. Did speak with her , who confirmed history obtained in initial heme consult note. States she givens s been on warfarin since her 2011 [facility] admission with no known thrombotic events [...] assessme nt and plan. Rudy Sarmiento, DO [facility] Internal Medicine PGY3 Pager [phone] Mirela Josue MD - 04/27/2014 10:49 AM PST [facility] Department of Surgery Progress Note Author: [...] underwent successful thrombin injection of the left FIELD SERVICE CONSULTANT pseudoaneurysm by IR last night. Heparin restarted [...] ultraso und guided thrombin injection of left FIELD SERVICE CONSULTANT pseudoanuerysm. Will order arterial duplex of left FIELD SERVICE CONSULTANT to assess for stability of pseudoaneurysm Monitor [...] - hemorrhage vs HCAP LUCY MARKS MD [address] [place] [address] This assessment and plan was formulated both independently and in conjunction with the [facility] ular Surgery Team as well as the attending provider of record above regarding management of this patient and their medical issues. It is accurate to the best of my knowledge, and is s ubject to modification based on clinical developments, new data, or final imaging results. [facility] staff I saw and evaluated the patient. I agree with the findings and the plan of care as petern laxmi in the resident s note. Left femoral pseudoaneurysm appears resolved. Stable from [facility] standpoint. No further imaging required unless clinical status changes. Mirela Thompson M.D. [facility] Vascular Surgery [address] [facility] [place] [address] Email: [email or web address] Jf Jones MD - 04/27/2014 8:03 AM [...] at referring hospital. She was transferred to [facility] fo r active hemorrhage. Hospital Day [...] H2O Hyernatremia: water 100ml/hr via DHT Dysphagia: BUILDINGS AND GROUNDS SUPERVISOR consulted, ice chips only JULIANE: ATN [...] Call team 01/11 for questions: Team Pager [phone] ATTENDING ADDENDUM: I saw and examined Mackenzie [...] Erin Christensen PA-C. Jf Wiseman MD FACS rug drying machine operator Division of Trauma, Critical Care, and Acute Care Surgery [id number] aElda tejada MD - 04/27/2014 4:52 AM PST EMERGENCY GENERAL SURGERY ICU PROGRESS NOTE: Attending Physician: Jf Wiseman MD 04/27/2014 ID: Mackenzie Hartley is a 58 year old female with COPD, Crohn's disease, chronic pain, and coagulopa thy resulting in splenic artery thrombosis while anticoagulated with warfarin transferred to [facility] from [facility] for management [...] HR EVENTS: - Incidentally found to have FIELD SERVICE CONSULTANT pseudoaneurysm, injected with thrombin by IR - [...] thrombosis while anticoagulated with warfarin transferred to [facility] from [facility] for management [...] this patient encounter. Elda Glez MD Pager [phone] Plastic Surgery R2 [facility] Diagnoses: 555.2 Crohn's disease of both [...] Attending:Dr. Lenny Calhoun MD (Fellow)/pager: Dr. Vang [phone] Medications Procedure Meds: Dilaudid IV 0.5mg Midazolam [...] at referring hospital. She was transferred to [facility] fo r active hemorrhage. Hospital Day [...] Call team 01/11 for questions: Team Pager [phone] Angeles Acevedo MD - 04/26/2014 5:24 AM PST [facility] DEPARTMENT OF SURGERY EGS ICU Progress Note Division of Trauma and Critical Care ID: Mackenzie Hartley is a 58 year old female with COPD, Crohn's disease, chronic pain, and 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 while anticoagulated with warfarin transferre d to [facility] from [facility] for management [...] thrombosis while anticoagulated with warfarin transferred to [facility] from [facility] for management [...] Hannah MD General Surgery Resident, R3 Pager [phone] [facility] [place] [address] [address] [facility] [address] ithya Bailey MD - 04/25/2014 6:40 AM PSTTSICU Attending 04/25/14 58 yo woman critically ill with complex surgical and medical history, transferred to [facility] intraabdominal and retroperitoneal hemorrhage [...] Call team 01/11 for questions: Team Pager [phone] Angeles Acevedo MD - 04/25/2014 4:39 AM PST [facility] DEPARTMENT OF SURGERY EGS ICU Progress Note Division of Trauma and Critical Care ID: Mackenzie Hartley is a 58 year old female with COPD, Crohn's disease, chronic pain, and 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 while anticoagulated with warfarin transferre d to [facility] from [facility] for management [...] thrombosis while anticoagulated with warfarin transferred to [facility] from [facility] for management [...] Hannah MD General Surgery Resident, R3 Pager [phone] [facility] [place] [address] Rich Pappas MD - 04/24/2014 9:21 AM [...] extubate Initial surgical contact: Miladis at pager [phone] Nithya Andres MD - 04/24/2014 5:25 AM [...] exploration at referring hospital. IR embolization at [facility]. Hospital Day #1 ICU Day #2 [...] Call team 01/11 for questions: Team Pager [phone] Angeles Acevedo MD - 04/24/2014 2:04 AM PST [facility] DEPARTMENT OF SURGERY EGS Consult Progress Note Division of Trauma and Critical Care ID: Mackenzie Hartley is a 58 year old female with COPD, Crohn's disease, chronic pain, and 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 while anticoagulated with warfarin transferre d to [facility] from [facility] for management [...] thrombosis while anticoagulated with warfarin transferred to [facility] from [facility] for management [...] Hannah MD General Surgery Resident, R3 Pager [phone] [facility] [place] [address] [facility] [place] [address] Rudy Parker M D - 04/23/2014 5:07 PM PSTBRIEF INTERVENTIONAL RADIOLOGY PROCEDURE NOTE DATE: 04/23/2014 5:07 PM PROCEDURE: Pelvic angiography with glue embolization PRE-PROCEDURE DIAGNOSIS: Retroperitoneal hematoma POST-PROCEDURE DIAGNOSIS: Same IR STAFF: Lenny IR FELLOW: Ciera ACCESS: L FIELD SERVICE CONSULTANT MEDICATIONS: Fentanyl IV 150 mcg Midazolam IV [...] | + +--------+ + + + | [facility] PORTABLE | Routin | 04/27/2014 | [...] | + + + + + | [facility] | [address] | [place] [address] | | | JANELL SHARP | BERTRAM [...] [facility] | [address] | [place], [place] | | | [facility] | [address] | [address] | | | TESTS | | | [...] [facility] | [address] | [place] [address] | | | SERVICES, CORE | PARK [...] [facility] | [address] | [place] [address] | | | SERVICES, CORE | PARK [...] | | | LABORATORY | | | MALDIVIAN | | | SERVICES, | | | [...] | + + + + + | [facility] | [address] [facility] | [place] [address] | | | ARON, JANELL | BERTRAM [...] [facility] | [address] | [place], [place] | | | H[facility], POINT [facility] CARE | [address] | [address] | | | TESTS | | | [...] [facility] | [address] | [place], [place] | | | [facility] | [address] | [address] | | | TESTS | | | [...] HOSPITAL [facility] | [address] | [place] [address] | | | SERVICES, CORE | [address] | | | + + + + + MAGNESIUM, PLASMA (05/12/2014 1:07 AM PST) + +---------+ + + + | Component | Value | Ref Range | Performed | Pathologist | | | | | At | Signature | + +---------+ + + + | MAGNESIUM,P | 1.5 (L) | 1.8 - 2.5 mg/dL | [facility] | | | JFMA | | | [...] | + + + + + | [facility] | [address] [facility] | [place] [address] | | | SERVICES, CORE | BERTRAM [...] | | | LABORATORY | | | MALDIVIAN | | | SERVICES, | | | [...] the MDRD equation recommended by the | [facility] | | National Kidney Disease Education [...] HOSPITAL LAB[facility]ORY | [address] | [place] [address] | | | JANELL SHARP | BERTRAM [...] HOSPITAL [facility] | [address] | [place] [address] | | | JANELL SHARP | BERTRAM [...] - [facility] | [address] | [place], [place] | | | [facility] | [address] | [address] | | | TESTS | | | [...] SANDERS | [address] | [place], [place] | | | [facility] | [address] | [address] | | | TESTS | | | [...] HOSPITAL [facility] | [address] | [place] [address] | | | SERVICES, CORE | PARK [...] + + + + | [facility] | [address] | [place] [address] | | | SERVICES, CORE | BERTRAM [...] | | | LABORATORY | | | MALDIVIAN | | | SERVICES, | | | [...] HOSPITAL [facility] | [address] | [place] [address] | | | SERVICES, CORE | PARK [...] HOSPITAL [facility] | [address] | [place] [address] | | | SERVICES, CORE | PARK [...] - [facility] | [address] | [place], [place] | | | [facility] | [address] | [address] | | | TESTS | | | [...] + + + | [facility] | [address] | [place], [place] | | | [facility] | [address] | [address] | | | TESTS | | | [...] [facility] | [address] | [place], [place] | | | [facility] | [address] | [address] | | | TESTS | | | [...] [facility] | [address] | [place], [place] | | | [facility] | [address] | [address] | | | TESTS | | | [...] HOSPITAL [facility] | [address] | [place] [address] | | | SERVICES, CORE | [address] | | | + + + + + MAGNESIUM, PLASMA (05/10/2014 3:39 AM PST) + +---------+ + + + | Component | Value | Ref Range | Performed | Pathologist | | | | | At | Signature | + +---------+ + + + | MAGNESIUM,P | 1.4 (L) | 1.8 - 2.5 mg/dL | [facility] | | | JFMA | | [...] | + + + + + | [facility] | [address] [facility] | [place] [address] | | | SERVICES, CORE | PARK [...] | | | LABORATORY | | | MALDIVIAN | | | SERVICES, | | | [...] the MDRD equation recommended by the | [facility] | | National Kidney Disease Education [...] HOSPITAL LAB[facility]ORY | [address] | [place] [address] | | | ARON, JANELL | BERTRAM [...] HOSPITAL [facility] | [address] | [place] [address] | | | JANELL SHARP | BERTRAM [...] [facility] | [address] | [place], [place] | | | [facility] | [facility] | [address] | | | TESTS | | | [...] SANDERS | [address] | [place], [place] | | | [facility] | [address] | [address] | | | TESTS | | | [...] [facility] | [address] | [place], [place] | | | [facility] | [address] | [address] | | | TESTS | | | [...] | + + + + + | [facility] | [address] | [place] [address] | | | SERVICES, CORE | BERTRAM [...] [facility] | [address] | [place] [address] | | | SERVICES, CORE | PARK [...] | | | LABORATORY | | | MALDIVIAN | | | SERVICES, | | | [...] HOSPITAL [facility] | [address] | [place] [address] | | | SERVICES, CORE | PARK [...] HOSPITAL [facility] | [address] | [place] [address] | | | SERVICES, CORE | BERTRAM [...] + + + | [facility] | [address] | [place], [place] | | | [facility] | [address] | [address] | | | TESTS | | | [...] [facility] | [address] | [place], [place] | | | [facility] | [address] | [address] | | | TESTS | | | [...] | + + + + + | [facility] | [address] | [place] [address] | | | SERVICES, JANELL | BERTRAM [...] [facility] | [address] | [place] [address] | | | SERVICES, CORE | PARK [...] | | | LABORATORY | | | MALDIVIAN | | | SERVICES, | | | [...] | + + + + + | [facility] | [address] | [place] [address] | | | SERVICES, CORE | PARK [...] HOSPITAL [facility]ORY | [address] | [place] [address] | | | SERVICES, CORE | BERTRAM [...] SANDERS | [address] | [place], [place] | | | [facility] | [facility] | [address] | | | TESTS | | | [...] - [facility] | [address] | [place], [place] | | | [facility] | [facility] | [address] | | | TESTS | | | [...] [facility] | [address] | [place] [address] | | | JANELL SHARP | PARK [...] [facility] | [address] | [place] [address] | | | SERVICES, CORE | BERTRAM [...] | | | LABORATORY | | | MALDIVIAN | | | SERVICES, | | | [...] | + + + + + | [facility] | [address] | [place] [address] | | | SERVICES, CORE | BERTRAM [...] | + + + + + | [facility] | [address] | [place] [address] | | | SERVICES, JANELL | PARK [...] [facility] | [address] | [place], [place] | | | [facility] | [address] | [address] | | | TESTS | | | [...] HOSPITAL [facility] | [address] | [place] [address] | | | SERVICES, CORE | BERTRAM [...] SANDERS | [address] | [place], [place] | | | [facility] | [address] | [address] | | | TESTS | | | [...] [facility] | [address] | [place], [place] | | | [facility] | [address] | [address] | | | TESTS | | | [...] | + + + + + | [facility] | [address] | [place] [address] | | | SERVICES, CORE | BERTRAM [...] [facility] | [address] | [place] [address] | | | SERVICES, CORE | PARK [...] | | | LABORATORY | | | MALDIVIAN | | | SERVICES, | | | [...] HOSPITAL [facility] | [address] | [place] [address] | | | SERVICES, CORE | PARK [...] [facility] | [address] | [place] [address] | | | SERVICES, CORE | BERTRAM [...] | [facility] | [address] [facility] | [place] [address] | | | SERVICES, CORE | PARK [...] [facility] | [address] | [place] [address] | | | ARON, CORE | BERTRAM [...] [facility] | [address] | [place] [address] | | | SERVICES, CORE | BERTRAM [...] | | | LABORATORY | | | MALDIVIAN | | | SERVICES, | | | [...] | + + + + + | [facility] | [address] | [place] [address] | | | SERVICES, CORE | PARK [...] | + + + + + | [facility] | [address] | [place] [address] | | | SERVICES, CORE | [address] | | | + + + + + WELCOME TO [employer] (VIDEO) (05/04/2014 2:18 PM PST) + +--------+ [...] + + + + | [facility] | [address] | [place] [address] | | | [facility] | [address] | | | + + [...] [facility] | [address] | [place] [address] | | | SERVICES, CORE | PARK [...] [facility] | [address] | [place] [address] | | | SERVICES, [facility] | [address] | | | + [...] [facility] | [address] | [place] [address] | | | SERVICES, CORE | PARK [...] [facility] | [address] | [place] [address] | | | SERVICES, CORE | PARK [...] | | | LABORATORY | | | MALDIVIAN | | | SERVICES, | | | [...] | + + + + + | [facility] | [address] | [place] [address] | | | SERVICES, CORE | BERTRAM [...] | + + + + + | [facility] | [address] | [place] [address] | | | SERVICES, CORE | BERTRAM [...] [facility] | [address] | [place] [address] | | | SERVICES, CORE | PARK [...] [facility] | [address] | [place] [address] | | | SERVICES, CORE | PARK [...] [facility] | [address] | [place] [address] | | | SERVICES, CORE | PARK [...] HOSPITAL [facility] | [address] | [place] [address] | | | SERVICES, CORE | PARK [...] [facility] | [address] | [place], [place] | | | [facility] | [address] | [address] | | | TESTS | | | [...] + | [facility] | [address] [facility] | [place] [address] | | | SERVICES, CORE | PARK [...] HOSPITAL [facility]ORY | [address] | [place] [address] | | | SERVICES, CORE | PARK [...] | | | LABORATORY | | | MALDIVIAN | | | SERVICES, | | | [...] | + + + + + | [facility] | [address] | [place] [address] | | | SERVICES, CORE | BERTRAM [...] | + + + + + | [facility] | [address] | [place] [address] | | | SERVICES, CORE | BERTRAM [...] [facility] | [address] | [place] [address] | | | ARON, JANELL | PARK [...] | | | LABORATORY | | | MALDIVIAN | | | SERVICES, | | | [...] the MDRD equation recommended by the | [facility] | | National Kidney Disease Education Program. [...] | [facility] | [address] [facility] | [place] [address] | | | SERVICES, CORE | PARK [...] | | | LABORATORY | | | MALDIVIAN | | | SERVICES, | | | [...] | + + + + + | [facility] | [address] | [place] [address] | | | SERVICES, [facility] | [address] | | | + [...] [facility] | [address] | [place], [place] | | | THERAPY | [address] | [address] | | + + + + + [...] [facility] | [address] | [place], [place] | | | THERAPY | [address] | [address] | | + + + + + [...] [facility] | [address] | [place] [address] | | | SERVICES, CORE | PARK [...] | + + + + + | [facility] | [address] | [place] [address] | | | ARON, JANELL | BERTRAM [...] [facility] | [address] | [place] [address] | | | SERVICES, CORE | [address] [...] | | | LABORATORY | | | MALDIVIAN | | | SERVICES, | | | [...] | + + + + + | [facility] | [address] | [place] [address] | | | SERVICES, CORE | PARK [...] | + + + + + | [facility] | [address] | [place] [address] | | | SERVICES, CORE | PARK [...] DEPT OF | [address] | [place], [place] | | | CARDIOLOGY | [address] | [address] | | + + + + + X-RAY PORTABLE CHEST 1 VIEW (05/02/2014 2:11 AM PST) + + + + + + | Component | Value | Ref Range | Performed | Pathologist | | | | | At | Signature | + + + + + + | X-RAY | EXAM: GA CHEST 1 VIEW | | | | [...] HOSPITAL [facility] | [address] | [place] [address] | | | SERVICES, CORE | PARK [...] [facility] | [address] | [place], [place] | | | [facility] [place] | [facility] | [address] | | | TESTS | | | [...] - [facility] | [address] | [place], [place] | | | [facility] | [facility] | [address] | | | TESTS | | | [...] | + + + + + | [facility] | [address] | [place] [address] | | | SERVICES, CORE | [address] | | | + + + + + X-RAY PORTABLE CHEST 1 VIEW (05/01/2014 3:37 AM PST) + + + + + + | Component | Value | Ref Range | Performed | Pathologist | | | | | At | Signature | + + + + + + | X-RAY | EXAM: GA CHEST 1 VIEW | | | | [...] Bilateral | | | | | | [id number] | | | | | | pleural [...] [facility] | [address] | [place] [address] | | | SERVICES, JANELL | [address] [...] | + + + + + | [facility] | [address] | [place] [address] | | | SERVICES, CORE | [address] [...] | | | LABORATORY | | | MALDIVIAN | | | SERVICES, | | | [...] the MDRD equation recommended by the | [facility] | | National Kidney Disease Education Program. [...] [facility] | [address] | [place] [address] | | | SERVICES, CORE | PARK [...] | + + + + + | [facility] | [address] | [place] [address] | | | JANELL SHARP | BERTRAM [...] [facility] | [address] | [place], [place] | | | [facility] | [facility] | [address] | | | TESTS | | | [...] + + + | X-RAY | STUDY: GA CHEST 1 VIEW | | | | [...] | + + + + + | [facility] | [address] | [place] [address] | | | SERVICES, CORE | PARK [...] + | [facility] | [address] [facility] | [place] [address] | | | JANELL SHARP | BERTRAM [...] HOSPITAL [facility] | [address] | [place] [address] | | | JANELL SHARP | BERTRAM [...] | | | LABORATORY | | | MALDIVIAN | | | SERVICES, | | | [...] | + + + + + | [facility] | [address] | [place] [address] | | | SERVICES, CORE | PARK [...] | | | LABORATORY | | | MALDIVIAN | | | SERVICES, | | | [...] the MDRD equation recommended by the | [facility] | | National Kidney Disease Education [...] HOSPITAL LAB[facility]ORY | [address] | [place] [address] | | | ARON, JANELL | BERTRAM [...] [facility] | [address] | [place], [place] | | | [facility] [facility] | [address] | [address] | | | TESTS | | | [...] [facility] | [address] | [place] [id number] | | | SERVICES, CORE | BERTRAM [...] [facility] | [address] | [place] [address] | | | SERVICES, CORE | PARK [...] | | | LABORATORY | | | MALDIVIAN | | | SERVICES, | | | [...] | + + + + + | [facility] | [address] | [place] [address] | | | ARON, JANELL | BERTRAM [...] + | [facility] | [address] [facility] | [place] [address] | | | SERVICES, JANELL | BERTRAM [...] HOSPITAL [facility] | [address] | [place] [address] | | | SERVICES, CORE | BERTRAM [...] [facility] | [address] | [place], [place] | | | [facility] | [address] | [address] | | | TESTS | | | [...] [facility] | [address] | [place] [address] | | | SERVICES, CORE | PARK [...] [facility] | [address] | [place] [address] | | | SERVICES, CORE | PARK [...] [facility] | [address] | [place] [address] | | | SERVICES, CORE | PARK [...] [facility] | [address] | [place] [address] | | | SERVICES, CORE | PARK [...] | | | LABORATORY | | | MALDIVIAN | | | SERVICES, | | | [...] | + + + + + | [facility] | [address] [facility] | [place] [address] | | | SERVICES, JANELL | BERTRAM [...] HOSPITAL LAB[facility]ORY | [address] | [place] [address] | | | ARON, JANELL | BERTRAM [...] + | [facility] | [address] [facility] | [place] [address] | | | SERVICES, CORE | PARK [...] | + + + + + | [facility] | [address] | [place] [address] | | | ARON, JANELL | BERTRAM [...] [facility] | [address] | [place], [place] | | | [facility] | [address] | [address] | | | TESTS | | | | + + + + + X-RAY ABD LTD FEEDING TUBE EVAL PORTABLE (04/27/2014 10:33 AM PST) + + + + + + | Component | Value | Ref Range | Performed | Pathologist | | | | | At | Signature | + + + + + + | X-RAY ABD | STUDY: GA ABD LTD | | | | | [...] [facility] | [address] | [place] [address] | | | ARON, JANELL | BERTRAM [...] | + + + + + | [facility] | [address] | [place] [address] | | | SERVICES, CORE | [address] [...] | + + + + + | [facility] | [address] | [place] [address] | | | SERVICES, CORE | BERTRAM [...] [facility] | [address] | [place] [address] | | | SERVICES, CORE | PARK [...] | | | LABORATORY | | | MALDIVIAN | | | SERVICES, | | | [...] | + + + + + | [facility] | [address] [facility] | [place] [address] | | | SERVICES, CORE | BERTRAM [...] [facility] | [address] | [place] [address] | | | SERVICES, JANELL | PARK [...] | + + + + + | [facility] | [address] | [place] [address] | | | SERVICES, CORE | [address]TRAM [...] | + + + + + | [facility] | [address] | [place] [address] | | | SERVICES, CORE | PARK [...] [facility] | [address] | [place] [address] | | | SERVICES, CORE | [address] | | | + + + + + MAGNESIUM, PLASMA (04/26/2014 7:41 PM PST) + +-------+ + + + | Component | Value | Ref Range | Performed | Pathologist | | | | | At | Signature | + +-------+ + + + | MAGNESIUM,P | 2.0 | 1.8 - 2.5 mg/dL | [facility] | | | LASMA | | [...] HOSPITAL LAB[facility]ATORY | [address] | [place] [address] | | | SERVICES, CORE | [address] [...] | | | LABORATORY | | | MALDIVIAN | | | SERVICES, | | | [...] | + + + + + | [facility] | [address] | [place] [address] | | | SERVICES, CORE | [address] [...] PRIMARY | | | | | | MANAGER MASS: Rudy | | | | | | [...] [facility] | [address] | [place], [place] | | | [facility] | [facility] | [address] | | | TESTS | | | | + + + + + [facility] EXT CALEB MONTERROSO [...] | + + + + + | [facility] | [address] | [place] [address] | | | SERVICES, CORE | BERTRAM [...] [facility] | [address] | [place] [address] | | | SERVICES, CORE | PARK [...] | + + + + + | [facility] | [address] | [place] [address] | | | SERVICES, CORE | PARK [...] | + + + + + | [facility] | [address] | [place] [address] | | | SERVICES, CORE | [address]TRAM [...] | + + + + + | [facility] | [address] | [place] [address] | | | SERVICES, CORE | PARK [...] [facility] | [address] | [place] [address] | | | SERVICES, CORE | [address]ARK [...] | | | LABORATORY | | | MALDIVIAN | | | SERVICES, | | | [...] + + + + | [facility] | [address] | [place] [address] | | | JANELL SHARP | BERTRAM [...] [facility] | [address] | [place] [address] | | | SERVICES, CORE | PARK [...] + + | [facility] | [address] | [place] [address] | | | JANELL SHARP | BERTRAM [...] [facility] | [address] | [place], [place] | | | [facility] | [address] | [address] | | | TESTS | | | [...] | | | LABORATORY | | | MALDIVIAN | | | SERVICES, | | | [...] the MDRD equation recommended by the | [facility] | | National Kidney Disease Education [...] HOSPITAL LABORATORY | [address] | [place] [address] | | | JANELL SHARP | BERTRAM [...] [facility] | [address] | [place], [place] | | | [place] | [address] | [address] | | | TESTS | | | [...] | + + + + + | [facility] | [address] | [place] [address] | | | SERVICES, CORE | BERTRAM [...] | + + + + + | [facility] | [address] | [place] [address] | | | SERVICES, CORE | BERTRAM [...] + + + + | PRODUCT | [id number] | | [facility] | | | UNIT [...] + + + + | BLOOD | [id number] | | [facility] | | | PRODUCT [...] DEPARTMENT OF | [address] | [place] [address] | | | PATHOLOGY | [address] [...] + + + + | PRODUCT | [id number] | | [facility] | | | UNIT [...] + + + + | BLOOD | [id number] | | [facility] | | | PRODUCT [...] DEPARTMENT OF | [address] | [place] [address] | | | PATHOLOGY | [address] [...] HOSPITAL [facility] | [address] | [place] [address] | | | SERVICES, JANELL | PARK [...] | + + + + + | [facility] | [address] [facility] | [place] [address] | | | SERVICES, CORE | PARK [...] | | | LABORATORY | | | MALDIVIAN | | | SERVICES, | | | [...] the MDRD equation recommended by the | [facility] | | National Kidney Disease Education [...] HOSPITAL LABORATORY | [address] | [place] [address] | | | JANELL SHARP | BERTRAM [...] [facility] | [address] | [place] [address] | | | SERVICES, CORE | PARK [...] [facility] | [address] | [place] [address] | | | SERVICES, CORE | PARK [...] [facility] | [address] | [place] [address] | | | SERVICES, CORE | BERTRAM [...] HOSPITAL LAB[facility]ORY | [address] | [place] [address] | | | SERVICESJANELL | [address] [...] [facility] | [address] | [place], [place] | | | [facility] | [facility] | [address] | | | TESTS | | | [...] [facility] | [address] | [place], [place] | | | [facility] | [address] | [address] | | | TESTS | | | [...] [facility] LABORATORY | [address] | [place] [address] | | | SERVICES, CORE | BERTRAM [...] | + + + + + | [employer] [facility] | [address] | [place] [address] | | | SERVICES, CORE | BERTRAM [...] [facility] | [address] | [place] [address] | | | ARON, CORE | BERTRAM [...] HOSPITAL LABORATORY | [address] | [place] [address] | | | SERVICES, JANELL | [address] | | | + + + + + X-RAY PORTABLE CHEST 1 VIEW (04/24/2014 5:32 AM PST) + + + + + + | Component | Value | Ref Range | Performed | Pathologist | | | | | At | Signature | + + + + + + | X-RAY | STUDY: GA CHEST 1 VIEW | | | | [...] +---------+ + + | [facility] DEPARTMENT | | | | | RADIOLOGY [...] | + + + + + | [facility] | [address] | [place] [address] | | | JANELL SHARP | BERTRAM [...] | | | LABORATORY | | | MALDIVIAN | | | SERVICES, | | | [...] [facility] | [address] | [place] [address] | | | SERVICES, CORE | PARK [...] | + + + + + | [facility] | [address] | [place] [address] | | | SERVICES, CORE | PARK [...] | + + + + + | [facility] | [address] | [place] [address] | | | SERVICES, CORE | BERTRAM [...] [facility] | [address] | [place], [place] | | | THERAPY | [address] | [address] | | + + + + + [...] [facility] | [address] | [place], [place] | | | THERAPY | [address] | [address] | | + + + + + [...] | | | LABORATORY | | | MALDIVIAN | | | SERVICES, | | | [...] the MDRD equation recommended by the | [facility] | | National Kidney Disease Education [...] + + | [facility] | [address] | [place] [address] | | | SERVICES, CORE | PARK [...] [facility] | [address] | [place] [address] | | | SERVICES, CORE | PARK [...] | + + + + + | [facility] | [address] | [place] [address] | | | SERVICES, CORE | PARK [...] [facility] | [address] | [place] [address] | | | SERVICES, CORE | BERTRAM [...] | [facility] | [address] | [place] [address] | | | SERVICES, JANELL | BERTRAM [...] [facility] | [address] | [place] [address] | | | SERVICES, CORE | PARK [...] [facility] | [address] | [place] [address] | | | SERVICES, CORE | PARK [...] | | | LABORATORY | | | MALDIVIAN | | | SERVICES, | | | [...] | + + + + + | [facility] | [address] | [place] [address] | | | SERVICES, CORE | BERTRAM [...] HOSPITAL LABORATORY | [address] | [place] [address] | | | JANELL SHARP | BERTRAM [...] + + + | [facility] | [address] | [place], [place] | | | [facility] | [address] | [address] | | | TESTS | | | [...] PRIMARY | | | | | | MANAGER MASS: Rudy | | | | | | [...] 5 | | | | | | Salvadorean vascular sheath | | | | | [...] | | | | for a 5 Salvadorean | | | | | | IMAcatheter. [...] | | | | artery. A 3 Salvadorean | | | | | | microcatheterwas [...] [facility] | [address] | [place], [place] | | | CARDIOLOGY | [address] | [address] | | + + + + + [...] + + + + | PRODUCT | [id number] | | [facility] | | | UNIT [...] + + + + | BLOOD | [id number] | | [facility] | | | PRODUCT [...] [facility] DEPARTMENT OF | [address] | [place] [address] | | | PATHOLOGY | [address] [...] + + + + | PRODUCT | [id number] | | [facility] | | | UNIT [...] + + + + | BLOOD | [id number] | | [facility] | | | PRODUCT [...] DEPARTMENT OF | [address] | [place] [address] | | | PATHOLOGY | [address] [...] + + + + | PRODUCT | [id number] | | [facility] | | | UNIT [...] + + + + | BLOOD | [id number] | | [facility] | | | PRODUCT [...] OF | [address] | [place] [address] | | | PATHOLOGY | [address] [...] + + + + | PRODUCT | [id number] | | [facility] | | | UNIT [...] + + + + | BLOOD | [id number] | | [facility] | | | PRODUCT [...] DEPARTMENT OF | [address] | [place] [address] | | | PATHOLOGY | [address] [...] + + + + | PRODUCT | [id number] | | [facility] | | | UNIT [...] + + + + | BLOOD | [id number] | | [facility] | | | PRODUCT [...] DEPARTMENT OF | [address] | [place] [address] | | | PATHOLOGY | [address] [...] + + + + | PRODUCT | [id number] | | [facility] | | | UNIT [...] + + + + | BLOOD | [id number] | | [facility] | | | PRODUCT [...] DEPARTMENT OF | [address] | [place] [address] | | | PATHOLOGY | [address] | | | + + + + + X-RAY PORTABLE CHEST 1 VIEW (04/23/2014 11:41 AM PST) + + + + + + | Component | Value | Ref Range | Performed | Pathologist | | | | | At | Signature | + + + + + + | X-RAY | EXAM: GA CHEST 1 VIEW | | | | [...] + + + + | PRODUCT | [id number] | | [facility] | | | UNIT [...] + + + + | BLOOD | [id number] | | [facility] | | | PRODUCT [...] DEPARTMENT OF | [address] | [place] [address] | | | PATHOLOGY | [address] [...] + + + + | PRODUCT | [id number] | | [facility] | | | UNIT [...] + + + + | BLOOD | [id number] | | [facility] | | | PRODUCT [...] DEPARTMENT OF | [address] | [place] [address] | | | PATHOLOGY | [address] [...] + + + + | PRODUCT | [id number] | | [facility] | | | UNIT [...] + + + + | BLOOD | [id number] | | [facility] | | | PRODUCT [...] DEPARTMENT OF | [address] | [place] [address] | | | PATHOLOGY | [address] [...] + + + + | PRODUCT | [id number] | | [facility] | | | UNIT [...] + + + + | BLOOD | [id number] | | [facility] | | | PRODUCT [...] DEPARTMENT OF | [address] | [place] [address] | | | PATHOLOGY | [address] [...] + + + + | PRODUCT | [id number] | | [facility] | | | UNIT [...] + + + + | BLOOD | [id number] | | [facility] | | | PRODUCT [...] [facility] DEPARTMENT OF | [address] | [place] [address] | | | PATHOLOGY | [address] [...] + + + + | PRODUCT | [id number] | | [facility] | | | UNIT [...] + + + + | BLOOD | [id number] | | [facility] | | | PRODUCT [...] + + + + + | [facility] | [address] | [place] [address] | | | PATHOLOGY | [address] [...] + + + + | PRODUCT | [id number] | | [facility] | | | UNIT [...] + + + + | BLOOD | [id number] | | [facility] | | | PRODUCT [...] DEPARTMENT OF | [address] | [place] [address] | | | PATHOLOGY | [address] [...] + + + + | PRODUCT | [id number] | | [facility] | | | UNIT [...] + + + + | BLOOD | [id number] | | [facility] | | | PRODUCT [...] + + + + + | [facility] | [address] | [place] [address] | | | PATHOLOGY | [address] [...] + + + + | PRODUCT | [id number] | | [facility] | | | UNIT [...] + + + + | BLOOD | [id number] | | [facility] | | | PRODUCT [...] [facility] DEPART[facility] | [address] | [place] [address] | | | PATHOLOGY | [address] [...] + + + + | PRODUCT | [id number] | | [facility] | | | UNIT [...] + + + + | BLOOD | [id number] | | [facility] | | | PRODUCT [...] DEPARTMENT OF | [address] | [place] [address] | | | PATHOLOGY | [address] [...] + + + + | PRODUCT | [id number] | | [facility] | | | UNIT [...] + + + + | BLOOD | [id number] | | [facility] | | | PRODUCT [...] DEPARTMENT | [address] | [place] [address] | | | PATHOLOGY | [address] [...] + + + + | PRODUCT | [id number] | | [facility] | | | UNIT [...] + + + + | BLOOD | [id number] | | [facility] | | | PRODUCT [...] DEPARTMENT OF | [address] | [place] [address] | | | PATHOLOGY | [address] [...] + + + + | PRODUCT | [id number] | | [facility] | | | UNIT [...] + + + + | BLOOD | [id number] | | [facility] | | | PRODUCT [...] [facility] DEPARTMENT OF | [address] | [place] [address] | | | PATHOLOGY | [address] [...] + + + + | PRODUCT | [id number] | | [facility] | | | UNIT [...] + + + + | BLOOD | [id number] | | [facility] | | | PRODUCT [...] DEPARTMENT OF | [address] | [place] [address] | | | PATHOLOGY | [address] [...] [facility] | [address] | [place] [address] | | | SERVICES, CORE | PARK [...] [facility] | [address] | [place] [address] | | | SERVICES, CORE | BERTRAM [...] HOSPITAL LABORATORY | [address] | [place] [address] | | | JANELL SHARP | [address] [...] | | | LABORATORY | | | MALDIVIAN | | | SERVICES, | | | [...] [facility] | [address] | [place] [address] | | | SERVICES, CORE | PARK [...] [facility] | [address] | [place] [address] | | | SERVICES, CORE | PARK [...] [facility] | [address] | [place] [address] | | | SERVICES, CORE | PARK [...] HOSPITAL LABORATORY | [address] | [place] [address] | | | ARON, JANELL | [address]AM [...] 89 | 60 - 99 mg/dL | [facility] | [address] | [place], [place] | | | [facility] | [address] | [address] | | | TESTS | | | [...] [facility] | [address] | [place] [address] | | | SERVICES, | [address] [...] LABORATORY | [address] | [place] [address] | | | SERVICES, | [address] [...] + + + + | PRODUCT | [id number] | | [facility] | | | UNIT [...] + + + + | BLOOD | [id number] | | [facility] | | | PRODUCT [...] DEPARTMENT OF | [address] | [place] [address] | | | PATHOLOGY | [address] [...] + + + + | PRODUCT | [id number] | | [facility] | | | UNIT [...] + + + + | BLOOD | [id number] | | [facility] | | | PRODUCT [...] [facility] DEPART[facility] | [address] | [place] [address] | | | PATHOLOGY | [address] [...] + + + + | PRODUCT | [id number] | | [facility] | | | UNIT [...] + + + + | BLOOD | [id number] | | [facility] | | | PRODUCT [...] + + + + + | [facility] | [address] | [place] [address] | | | PATHOLOGY | [address] [...] + + + + | PRODUCT | [id number] | | [facility] | | | UNIT [...] + + + + | BLOOD | [id number] | | [facility] | | | PRODUCT [...] DEPARTMENT OF | [address] | [place] [address] | | | PATHOLOGY | [address] [...] + + + + | PRODUCT | [id number] | | [facility] | | | UNIT [...] + + + + | BLOOD | [id number] | | [facility] | | | PRODUCT [...] + + + + + | [facility] | [address] | [place] [address] | | | PATHOLOGY | [address] [...] + + + + | PRODUCT | [id number] | | [facility] | | | UNIT [...] + + + + | BLOOD | [id number] | | [facility] | | | PRODUCT [...] + + + + + | [facility] | [address] | [place] [address] | | | PATHOLOGY | [address] [...] | | | | | modification) on [facility] 05/02/14 at | | | | [...] | | | | ONCE, 1 dose, [facility] 04/24/14 at | | AM PST | | | | | 1015 | | | | | | + +-------+ +-------+---+---+ +---+---+ | | | +---+---+ + +-------+ +-------+---+---+ | bisacodyl (DULCOLAX) | Given | 04/25/19 | 10 mg | | | | suppository 10 mg 10 mg, rectal, | | 15 10:55 | | | | | ONCE, 1 dose, [facility] 04/25/14 at | | AM PST [...] | | | | | modification) on [facility] 05/02/14 at | | | | [...] | | | | | dose on [facility] 05/02/14 at 0530, | | | [...] | | | (after last modification) on [facility] | | | | [...]
--- OUTSIDE RECORDS SUMMARY | ~2019-03-09 | XMS | Encounter Summary ---
Demographics + + + | Address | [address] | | | [place] [address] | + + + | Home Phone | | + + + | Preferred Language | Unknown | + + + | Marital Status | | + + + | Religion Affiliation | Unknown | + + + | Race | Unknown | + + + | Ethnic Group | Unknown | + + + Author + + + | Author | [facility] | | | and [place] | + + + | Organization | [facility] | | | [...] Team Providers + +------+ + | Care Separations Scientist Name | Role | Phone | + [...] of large | | 03/12/ | | [place], [place] | [place] [address] | intestine with | | 2017 | | [address] | [phone] | complication (HCC) | | | | [phone] | | | +--------+ + + + [...] 0751 Date of Service: 03/12/1746 Status: Signed Steamfitter: JENARO Mathew (Nurse Practitioner) [facility] Service: Colon & Rectal Surgery Discharge Summary [...] Humirabeing seen by Dr. She CLAYTON in [place]. She previously underwent a small bowel resection [...] She was then recommended to go to [place] for a second opinio n. She never went to [place] due to the trip being a hardship [...] a open colostomy with Dr. Bocanegra. Si [facility] surgery she has recovered slowly. She is tolerating a general diet without N/V. Her co lostomy is passing gas and stool. Oral pain medications are managing the patients pain. e is ambulatory. Vitals and labs are stable. The patient is ready for discharge. 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 Chronic diarrhea COPD (chronic obstructive pulmonary disease) ([facility]) Crohn's disease ([facility]) Deep vein thrombosis (DVT) ([facility]) right leg and then [place] [facility] Depression E-coli UTI Embolism and thrombosis of splenic artery Gastroesophageal reflux disease with hiatal hernia GERD (gastroesophageal reflux disease) Hemorrhage of gastrointestinal tract, unspecified Hypertension Hypokalemia 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) Joint pain Microcytic anemia Neuromuscular disorder ([facility]) left leg numbness, severe tingling, shooting pain down leg Neuropathy On total parenteral nutrition (TPN) Osteoporosis Other chronic pain Pyelonephritis Recurrent aphthous ulcer Sepsis (HCC) Past Surgical History Procedure Laterality Date ABDOMINAL SURGERY ANAL FISTULA SETON PLACEMENT N/A 10/17/2015 Procedure: ANAL FISTULA SETON PLACEMENT; Surgeon: Enrique Bocanegra MD; Location: [facility] M AIN OR; Service: General; Laterality: N/A; APPENDECTOMY CHOLECYSTECTOMY COLOSTOMY N/A 03/07/2017 Procedure: COLOSTOMY; Surgeon: Enrique Bocanegra MD; Location: [facility] OR; Service: G eneral; Laterality: N/A; ESOPHAGOGASTRODUODENOSCOPY Left 08/06/2015 Procedure: ESOPHAGOGASTRODUODENOSCOPY; Surgeon: Sheng Rios MD; Location: [facility] ENDOSCOPY; Service: Gastroenterology; Laterality: Left; ESOPHAGOGASTRODUODENOSCOPY N/A 04/21/2014 Procedure: ESOPHAGOGASTRODUODENOSCOPY; Surgeon: Bony Petty MD; Location: [facility] BEDSIDE PROCEDURE; Service: Gastroenterology; Laterality: N/A; HYSTERECTOMY LAPAROTOMY N/A 04/23/2014 Procedure: EXPLORATION - LAPAROTOMY; Surgeon: Bogdan Moser DO; Location: [facility] MAIN O R; Service: General; Laterality: N/A; LYSIS OF ADHESIONS PORTACATH PLACEMENT Left SMALL INTESTINE SURGERY SPLENECTOMY, TOTAL N/A 04/23/2014 Procedure: SPLENECTOMY; Surgeon: Bogdan Moser DO; Location: [facility] MAIN OR; Service: General; Laterality: N/A; [...] Change midline dressing and ostomy appliance with 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 Follow up: JENARO Mathew [address] [place] [phone] Schedule an appointment as soon as possible [...] 1422 Date of Service: 03/12/171414 Status: Signed Steamfitter: Catracho Almaguer RN (Registered Nurse) [facility] Service: Ostomy Care Consult Note Hospital Day: [...] 03/12/17637 Date of Service: 03/12/17637 Status: Signed Steamfitter: Lashawn Valdez RN (Registered Nurse) Dr mckeon in room to examine patient. onver roshan Transaction, Provider Unknown - 03/12/2017 6:19 AM PST Progress Notes by Lashawn Valdez RN at 03/12/17618 Author: Lashawn Valdez RN Service: (none) Author Type: Registered Nurse Filed: 03/12/17625 Date of Service: 03/12/17618 Status: Signed Steamfitter: Lashawn Valdez RN (Registered Nurse) Patient is [...] Wound/Ostomy Care Author Type: Registered Nurse Filed: 03/11/174 Date of Service: 03/11/171630 Status: Signed Steamfitter: Catracho Almaguer RN (Registered Nurse) [facility] Service: Ostomy Care Consult Note Hospital Day: [...] Notes by Brooke Hawkins RD at 03/11/17 6901 Author: Brooke Hawkins RD Service: (none) Author Type: Registered Dietitian Filed: 03/11/17 7340 Date of Service: 03/11/171449 Status: Signed Steamfitter: Brooke Hawkins RD (Registered Dietitian) 03/11/17 8382 Subjective Timepoint Follow up Pt c/o In [...] Date of Service: 03/11/17 1306 Status: Signed Steamfitter: Kat Salter RN (Registered Nurse) Discharge plan- patient will be able to return home with family when medically ready. CM ma de an ostomy appt for her on 03/16/17 at 0915. Information added to AVS. KAT SALTER RN Case Management [phone] onver roshan Transaction, Provider Unknown - 03/11/2017 12:28 PM PST Therapy Progress Note by Moses Pathak PTA at 03/11/17 1228 Author: Moses Pathak PTA Service: (none) Author Type: Range Mounter Filed: 03/11/17 1232 Date of Service: 03/11/17 1228 Status: Signed Steamfitter: Moses Pathak PTA (Range Mounter) 03/11/17 1228 PT Last Visit PT Received [...] Author: Dorina Jang Service: (none) Author Type: Head Machine Feeder Filed: 03/11/17 1136 Date of Service: 03/11/171126 Status: Signed Steamfitter: Dorina Jang (Head Machine Feeder) Referral from RN to assess for emotional/spiritual [...] ostomy bag was leaking. Plan: Let pm rendering equipment tender know and revisit her later today. Would benefit from rendering equipment tender suppo rt and a bit of reframing her life going forward. Chaplain Sue KUNZ onver roshan Transaction, Provider Unknown - 03/11/2017 10:50 AM PST Nurse Progress Note by Catracho Almaguer RN at 03/11/17 1050 Author: Catracho Almaguer RN Service: Wound/Ostomy Care Author Type: Registered Nurse Filed: 03/11/17 1100 Date of Service: 03/11/17 1050 Status: Signed Steamfitter: Catracho Almaguer RN (Registered Nurse) Ostomy nurse [...] 03/11/1748 Date of Service: 03/11/17944 Status: Signed Steamfitter: Evita Sheldon MD (Physician) [facility] Service: Hospitalist Progress Note Pt: Smita Willingham AGE/SEX: 61 y.o. female ROOM: [address] [place] [address]- : 1955 PCP: No primary care provider [...] Infusions lactated ringers 50 mL/hr at 03/10/17 8291 PRN Medications [DISCONTINUED] acetaminophen OR acetaminophen, diphenhydrAMINE [...] MD, FACP 03/11/2017 9:45 AM Dictation software, Cord [employer], used which may contain error for similar sounding words even af ter review. Personal communication requested for any clarification. Portions of this chart may have been copied from previous notes for continuity of care purp ose Jordon Hauser ARNP - 03/11/2017 7:45 AM PST . Progress Notes by JENARO Mathew at 03/11/1766 Author: JENARO Mathew Service: General Surgery Author Type: Nurse Practitionying enciso Filed: 03/11/17 2068 Date of Service: 03/11/1789 Status: Signed Steamfitter: JENARO Mathew (Nurse Practitioner) [facility] Service: Colon & Rectal Surgery Progress Note [...] Date of Service: 03/11/17 010 Status: Signed Steamfitter: Lashawn Valdez RN (Registered Nurse) Report given [...] Date of Service: 03/10/17 1520 Status: Signed Steamfitter: Aniceto Chen PT (Physical Therapist) 03/10/17 1520 PT Last Visit PT Received On 03/10/17 Reason for Treatment Other (comment) (s/p end colostomy) Requires PT Follow Up Awaiting tx order Follow up PT Only? No Focus for Next Treatment Transfer Technique PT Eval/Reassessment Date 03/10/17 Assistance Required 1 person Director Of Construction Needed No Precautions Other Precautions new colostomy [...] Date of Service: 03/10/17 1520 Status: Signed Steamfitter: Aniceto Chen PT (Physical Therapist) 03/10/17 1520 PT Last Visit PT Received On 03/10/17 Reason for Treatment Other (comment) (s/p end colostomy) Requires PT Follow Up Awaiting tx order Follow up PT Only? No Focus for Next Treatment Transfer Technique PT Eval/Reassessment Date 03/10/17 Assistance Required 1 person Director Of Construction Needed No Home Environment Type of Home Home one story Home Exterior Layout 1-3 steps (1 entry step) Home Equipment Walker front wheeled Prior Function Level of [place] Independent with functional mobility;Independent with ADLs Falls in Past Year No Lives With Spouse Employment Retired for age Comments pt is a 61 y/o female s/p lysis of adhesions and end colostomy. She lives in [facility] with her spouse in a single story [...] Note by Catracho Almaguer RN at 03/10/17 956 Author: Catracho Almaguer RN Service: Wound/Ostomy Care Author Type: Registered Nurse Filed: 03/10/174 Date of Service: 03/10/171312 Status: Signed Steamfitter: Catracho Almaguer RN (Registered Nurse) Ostomy nurse [...] Author: LEVI Borrego Service: (none) Author Type: Right Of Way Manager Filed: 03/10/17 1313 Date of Service: 03/10/17 1312 Status: Signed Steamfitter: LEVI Borrego (Right Of Way Manager) Discharge planning: Pt return home with outpt ostomy care. CM entered sticky note for Dr to sign referrral. Evita Caraballo MD - 03/10/2017 10:41 AM PST Progress Notes by Evita Sheldon MD at 03/10/17 1041 Author: Evita Sheldon MD Service: Hospitalist Author Type: Physician Filed: 03/10/17 1101 Date of Service: 03/10/17 1041 Status: Signed Steamfitter: Evita Sheldon MD (Physician) [facility] Service: Hospitalist Progress Note Pt: Smita Willingham AGE/SEX: 61 y.o. female ROOM: [address] [place] [address] : 1955 PCP: No primary care provider [...] MD, FACP 03/10/2017 10:41 AM Dictation software, [employer], used which may contain error for similar [...] 03/10/17822 Date of Service: 03/10/17820 Status: Signed Steamfitter: JENARO Mathew (Nurse Practitioner) [facility] Service: Colon & Rectal Surgery Progress Note [...] eval and treat, please encourage ambulation -D/C DYNAMITE PACKING MACHINE OPERATOR, percocet and dilaudid for pain -General diet [...] 03/10/17505 Date of Service: 03/10/17502 Status: Signed Steamfitter: Angeles Tao RN (Registered Nurse) Pt very lethargic at start of shift with gradual improvement over the course of the night. Reports no pain when not moving but continues to push DYNAMITE PACKING MACHINE OPERATOR button often. Colostomy producing green liquid stool [...] 03/09/172007 Date of Service: 03/09/171956 Status: Signed Steamfitter: Gris Yee RN (Registered Nurse) Pt continues to c/o pain but respiration drop down to 4-9 with DYNAMITE PACKING MACHINE OPERATOR. DYNAMITE PACKING MACHINE OPERATOR is stopped. Pt is a waken to [...] 1716 Date of Service: 03/09/171619 Status: Signed Steamfitter: Linnea Lezama RN (Registered Nurse) 03/09/17 6878 Discharge Planning Evaluation Admitting Diagnosis Chron's disease, [...] Home Care Services Other (Comment) ([facility] for TPN) Mental Status Oriented;Other (comment) (Lethargic) Resources Financial concerns No Transportation issues No Patient/Family concerns No Prescription Plan Yes Name of Pharmacy [facility] in [place] Ostomy/Drains/Appliances Yes (New Colostomy) Anticipated Disposition Facility Type Home Met with pt who was oriented, but lethargic at this time, and discussed discharge planning, Pt is a 61 y.o., female who lives at home with her in [place], [place]. Pt is indepen dent with ADLs and mobility. Uses a cane and walker only as needed. Pt is currently set up with [facility] for TPN. Pt is on coumadin and follow up at the coumadin clinic in [place], [place]. Pt is not on home O2 [...] 03/09/17953 Date of Service: 03/09/17929 Status: Signed Steamfitter: Jaz Gonzáles PT (Physical Therapist) 03/09/17929 PT Last Visit PT Received On 03/09/17 Requires PT Follow Up On hold Other Comments Comments Pts H&H very low at this time, pt will be getting blood and she is very nauseated at this time. Eviat Caraballo MD - 03/09/2017 9:16 AM PST Progress Notes by Evita Sheldon MD at 03/09/17915 Author: Evita Sheldon MD Service: Hospitalist Author Type: Physician Filed: 03/09/17927 Date of Service: 03/09/17915 Status: Signed Steamfitter: Evita Sheldon MD (Physician) [facility] Service: Hospitalist Progress Note Pt: Smita Willingham AGE/SEX: 61 y.o. female ROOM: [address] [place] [address] : 1955 PCP: No primary care provider [...] MD, FACP 03/09/2017 9:16 AM Dictation software, [employer], used which may contain error for similar [...] 1057 Date of Service: 03/09/17908 Status: Signed Steamfitter: JENARO Mathew (Nurse Practitioner) [facility] Service: Colon & Rectal Surgery Progress Note Hospital Day: LOS: 2 days Post-Op Day: 1 Day Post-Op SUBJECTIVE Patient Summary: 61 y.o. female with Chron's and anovaginal fistulas SP colostomy Events Overnight: Pt complains of nausea this morning. Abdominal pain is controlled with DYNAMITE PACKING MACHINE OPERATOR. Colostomy noted with liquid stool and gas [...] to eval and treat, encourage ambulation -Continue DYNAMITE PACKING MACHINE OPERATOR for pain management -Continue CLD per ERAS [...] 0659 Date of Service: 03/09/17655 Status: Signed Steamfitter: Ruma Guerra RN (Registered Nurse) Notified Dr. Bocanegra of HGB 6.9, orders to transfuse 1 unit of blood. Informed MD that pt continue to be lethargic throughout night but easily arousable. ETCO2 up to 65 at times. Re spiratory came up to do STAT ABG, results came back normal, pt compensated. Will possibly d /c DYNAMITE PACKING MACHINE OPERATOR this AM pending MD decision. Will inform day shift RN. onver roshan Transaction, Provider Unknown - 03/09/2017 4:57 AM PST Progress Notes by Ruma Guerra RN at 03/09/17456 Author: Ruma Guerra RN Service: (none) Author Type: Registered Nurse Filed: 03/09/17 0503 Date of Service: 03/09/17456 Status: Signed Steamfitter: Ruma Guerra RN (Registered Nurse) Pt been lethargic but alert and oriented x 4 when pt asked orientation questions. Pt states "I feel like I am getting the flu, my body ache and I feel tired all the time" Vitals WNL, pain managed by DYNAMITE PACKING MACHINE OPERATOR pump. Incontinent of urine. Does not want to get out of bed. Will contin ue to monitor. onver roshan Transaction, Provider Unknown - 03/08/2017 11:43 AM PST Progress Notes by Chata Guadalupe RD at 03/08/17 1143 Author: Chata Guadalupe RD Service: (none) Author Type: Registered Dietitian Filed: 03/08/17 1144 Date of Service: 03/08/17 114 Status: Signed Steamfitter: Chata Guadalupe RD (Registered Dietitian) 03/08/17 1124 [...] note reports pt was on "TPN from [facility] in [place]: 275 g Dextrose, 90 g AA, 40 [...] Estimated Energy Needs Total Energy Estimated Needs 4215-5496 kcal/day Method for Estimating Needs 25-30 kcal/kg [...] Follow up date 03/11/[address] [facility] Jordon zhu ARNP - 03/08/2017 11:25 AM PST Progress Notes by JENARO Mathew at 03/08/17 8453 Author: JENARO Mathew Service: General Surgery Author Type: Nurse Jennifer enciso Filed: 03/08/17 9486 Date of Service: 03/08/17 9874 Status: Signed Steamfitter: JENARO Mathew (Nurse Practitioner) [facility] Service: Colon & Rectal Surgery Progress Note Hospital Day: LOS: 1 day Post-Op Day: 1 Day Post-Op SUBJECTIVE Patient Summary: 61 y.o. female with Chron's and anovaginal fistulas SP colostomy Events Overnight: Doing well. She complains of nausea this morning but better now. Abdominal pain is controlled with DYNAMITE PACKING MACHINE OPERATOR. career and guidance counselor changed midline dressing, and ostomy appli ance. [...] recommendations -PT to eval and treat -Continue DYNAMITE PACKING MACHINE OPERATOR for pain management -Continue CLD per ERAS [...] 1032 Date of Service: 03/08/171016 Status: Signed Steamfitter: Evita Sheldon MD (Physician) [facility] Service: Hospitalist Progress Note Pt: Smita Willingham AGE/SEX: 61 y.o. female ROOM: [address] [place] [address] : 1955 PCP: No primary care provider [...] MD, FACP 03/08/2017 10:17 AM Dictation software, [employer], used which may contain error for similar [...] 03/08/1738 Date of Service: 03/08/17736 Status: Signed Steamfitter: Jazmyn Beard RN (Registered Nurse) Infection Prevention [...] 03/07/171503 Date of Service: 03/07/171503 Status: Signed Steamfitter: Sofía Chamberlain RPH (Pharmacist) Clinical Pharmacy Note: [...] Note by Vernell Tovar RN at 03/07/17 753 Author: Vernell Tovar RN Service: (none) Author Type: Registered Nurse Filed: 03/07/17 1415 Date of Service: 03/07/171412 Status: Signed Steamfitter: Melveyne Tovar, RN (Registered Nurse) Called anesthesia and informed of pt's frequent PVCs but pt denies chest pain or SOB. BP 14 8/69, heart rate 88-90 bpm. Per anesthesia, pt was also having PVCs in the OR. Anesthesia st ates that she will talk with Dr. Bocanegra for an order for pt to be on quality assurance monitor chassis on t he floor. Vernell Tovar RN [...] Mar 12 2017 7:39AM Referring Provider Line: [phone] ID: | | | 109 | | [...] Mar 12 2017 7:39AM Referring Provider Line: [phone] ID: | | 109 | |Lungs/Pleura: Right [...] Mar 12 2017 7:39AM Referring Provider Line: [phone] ID: [id number] | + + External Lab: [...] | | | | | at [facility], [address] | | | | | | [facility], | | | | | | [place] [address] | | | | | |2+ | | | | | |POIK | | | | | |3+ | | | | | |ANISO | | | | | |NORMAL PLT MORPH | | | | | |Testing performed at [facility], [address] [place] [address] | | | | | | | [...] | | | | | performed at [facility], [address] | | | | | | [address]un [address], | | | | | | [place] [address] | | | | + + + [...] | | | | | performed at [facility], [address] | | | | | | Shun Noah, | | | | | | [place] [address] | | | | + + [...] | | | | | performed at [facility], [address] | | | | | | [address]un Singh, | | | | | | [place] [address] | | | | + + + [...] | | | | | performed at [facility], [address] | | | | | [address], | | | | | | [place] [address] | | | | + + + [...] | | | | performed at [facility], [address] | | LAB | | | | Shun Singh, | | | | | | [place] [address] | | | | + + + [...] | | | | performed at [facility], [address] | | LAB | | | | Shun Singh, | | | | | | [place] [address] | | | | + + + [...] | | | | | at [facility], [address] | | | | | | [facility], | | | | | | [place] [address] | | | | + + + [...] | | | | | at [facility], [address] | | | | | | [facility], | | | | | | [place] [address] | | | | | |3+ | | | | | |HYPO | | | | | |NORMAL PLT MORPH | | | | | |Testing performed at [facility], [address] [facility], [place] [address] | | | | | | | [...] | | | | performed at [facility], [address] | | LAB | | | | Shun Singh, | | | | | | [place] [address] | | | | + + + [...] | | | | | [place] [address] | | | | + + + [...] | | | | | at [facility], [address] | | | | | | Shun Zamora, | | | | | | [place] [address] | | | | + + + [...] Singh, | | | | | | [place] [address] | | | | + + [...] CITY;[address] | | | | | | Torsten Singh;[place], [place] | | | | | | [address] | | | | + + + [...] | | | | | performed at [facility], [address] | | | | | | [facility], | | | | | | [place] [address] | | | | | |TARGET | | | | | |NORMAL PLT MORPH | | | | | |Testing performed at [facility], [address] [place] [facility] [address] | | | | | | | [...] | | | | performed at [facility], [address] | | LAB | | | | Shun Singh, | | | | | | [place] [address] | | | | + + [...] | | | | performed at [facility], [address] | | LAB | | | | Shun Singh, | | | | | | [place] [address] | | | | + + + [...] | | | | | at [facility], [address] | | | | | | Shun Singh, | | | | | | [place] [address] | | | | + + + [...] | | | | | at [facility], [address] | | | | | | [employer], | | | | | | [place] [address] | | | | | |2+ | | | | | |TARGET | | | | | |NORMAL PLT MORPH | | | | | |Testing performed at [facility], [address] [facility], [place] [address] | | | | | | | [...] | | | | performed at [facility], [address] | | LAB | | | | Shun Singh, | | | | | | [place] [address] | | | | + + + [...] | | | | performed at [facility], [address] | | LAB | | | | Shun Singh, | | | | | | [place] [address] | | | | + + + [...] Gertrude, | | | | | | [place] [address] | | | | + + + [...] performed at [facility] | | | | | | [facility];[place], [place] | | | | | | [address] | | | | + + + [...] | at [facility];[address] [place] [address] | | | | | | Gertrude;[place] [address] | | | | | |HYPO | | | | | |1+ | | | | | |TARGET | | | | | |NORMAL PLT MORPH | | | | | |Testing performed at [facility];[address] [facility];[place] [address] | | | | | | | [...] | LAB | | | | [address] Singh;[place], [place] | | | | | | [address] | | | | + + + [...] performed at [facility] | | LAB | | | | Torsten [facility];[place], [place] | | | | | | [address] | | | | + + + [...] at [facility];[address];[place] [address] | | | | + + [...] [place] | | | | | | [address] | | | | + + + [...]
--- OUTSIDE RECORDS SUMMARY | ~2019-03-09 | XMS | Encounter Summary ---
Demographics + + + | Address | [address] | | | [place] [address] | + + + | Home Phone | | + + + | Preferred Language | Unknown | + + + | Marital Status | | + + + | Mandaeism Affiliation | NRP | + + + [...] [place], [place] | | | | | [address] | | + + + + + | Cami Sawyer | ECON | Unknown | | + + + + + Care Team Providers + +------+ + | Care Industrial Waste Inspector Name | Role | Phone | [...] | Crohn's | Neel Vega MD | [address] | | | | | disease of | [place] | [address] | | | | | both small | [facility] | [facility] | | | | | and large | CARE CLINIC | [place], [place] | | | | | intestine | [address] | [address] | | | | | without | 2ND | Phone: | | | | | complication | [place], | [phone] | | | | | s | [place] [address] | Fax: | | | | | | Phone: | [phone] | | | | | | [phone] | | | | | | | Fax: | | | | | | | [phone] | | +--------+--------+ + + + + Encounter Details +--------+---------+ + + + | Date | Type | Department | Care Team | Description | +--------+---------+ + + + | 07/27/ | Office | Digestive Health | Trice Marie MD | Rectovaginal fistula | | 2016 | Visit | Center at [facility] [address] | [address] | (Primary Dx); | | | | [address] | [place], | Crohn's disease of | | | | Mailcode: [place] | [place] [address] | both small and large | | | | for Health and | [phone] | intestine with | | | | Healing, Building [address] | | complication (HCC) | | | | [place], [place] | | | | | | [address] | | | | | | [phone] | | | +--------+---------+ + + + [...] Dimple in her vagina seen by her CAP LINING MACHINE OPERATOR ~1995 For fibroids and vaginal bleeding, she [...] Referral patient, I spent 62 minutes of [id number]-ic-dqkr time, of which more than half the time was spent in counseling. 56 minute document review y Taylor gabriel MD - 07/28/2015 1:28 PM PDT 07/28/2015 [facility] New Patient Consultation Referring Physician: Aren Roes DO Reason for consultation: Rectovaginal fistula HPI: [...] copy was this past month at [facility] in [facility] [address] with Dr. Krishna, which per patient was [...] alcohol or use illicit drugs. Lives in [place] with her . FH: Family History: None [...] 1) Review outside colonoscopy completed at [facility] - request has been sent 2) Plan for flex sig locally in [place] in 8 weeks time. Patient to send [...] | + +--------+ + + + | DE ANOSCOPY, DIAG | Routin | 08/04/2015 | [...]
--- OUTSIDE RECORDS SUMMARY | ~2019-03-09 | XMS | Encounter Summary ---
Demographics + + + | Address | [address] | | | [place] [address] | + + + | Home Phone [...] [place], [place] | | | | | [address] | | + + + + + | Cami Sawyer | ECON | Unknown | | + + + + + Care Team Providers + +------+ + | Care Laceworker Name | Role | Phone | + +------+ + | Aren Rose DO | PCP | | + +------+ + Encounter Details +--------+ + + + + | Date | Type | Department | Care Team | Description | +--------+ + + + + | 03/15/ | Results | LAB REFERRED TESTS | Other, Faculty | | | 2011 | Only | [address] [facility] | [phone] | | | | | [address] | | | | | | [place], [place] | | | | | | [address] | | | +--------+ + + + [...] DEPT OF | [address] | [place], [place] | | | CARDIOLOGY | [address] | [address] | | + + + + + documented in this encounter Visit Diagnoses Not on filedocumented in this encounter"
--- OUTSIDE RECORDS SUMMARY | ~2019-03-09 | XMS | Encounter Summary ---
Demographics + + + | Address | [address] | | | [place] [address] | + + + | Home Phone | | + + + | Preferred Language | Unknown | + + + | Marital Status | | + + + | Spiritism Affiliation | Unknown | + + + | Race | Unknown | + + + | Ethnic Group | Unknown | + + + Author + + + | Author | [facility] | | | and [place] | + + + | Organization | [facility] | | [...] Providers + +------+ + | Care Radio Operator Ground Name | Role | Phone | + [...] [address] | | | | | [place], [place] | [place] [address] | | | | | [address] | [phone] | | | | | [phone] | | | +--------+ + + + [...]
--- OUTSIDE RECORDS SUMMARY | ~2019-03-09 | XMS | Encounter Summary ---
Demographics + + + | Address | [address] | | | [place] [address] | + + + | Home Phone [...] [place], [place] | | | | | [address] | | + + + + + | Cami Sawyer | ECON | Unknown | | + + + + + Care Team Providers + +------+ + | Care Patrol Sergeant Name | Role | Phone | + [...] | | | 2014 | Event | [facility] | [address] | | | | | Admitting Desk | [place], | | | | | Located on the | [place] [address] | | | | | floor [address] [facility] | [phone] | | | | | [address] | | | | | | [place], [place] | Rajiv Willingham MD | | | | | [address] | [facility] | | | | | | [facility] [address] [address] | | | | | | [facility] | | | | | | [place] [address] | | | | | | [phone] | | | | | | | [...] by | | D - | "port"); [facility]; 01/27/17 | Alberto London RN | Discontinued After | | [facility] | (Automatic cleanup per RA | | Discharge | | l Line | 3006--contact admin for | | | | | questions.); 1622 (Automatic | | | | | cleanup per RA 3006--contact | | | | | admin for questions.); Yes; Other | | | | | (comment) ([facility]); No; Left; | | | [...]
--- OUTSIDE RECORDS SUMMARY | ~2019-03-09 | XMS | Encounter Summary ---
Demographics + + + | Address | [address] | | | [place] [address] | + + + | Home Phone [...] + + + | Author | [facility] | + + + | Organization | [facility] | + + + | Address | Unknown | + + + | Phone | Unavailable | + + + Support + + + + + | Name | Relationship | Address | Phone | + + + + + | Kole Willingham | [place] | [address] | | | | | [place], [place] | | | | | [address] | | + + + + + | Cami Sawyer | ECON | Unknown | | + + + + + Care Team Providers + +------+ + | Care Batch Operator Name | Role | Phone | [...] | | 2015 | | Center at [facility] [address] | [address] | | | | | [place] | [facility] | | | | | Mailcode: [place] | [place] [address] | | | | | [facility] and | [phone] | | | | | [place] [address] | | | | | | [place], [place] | | | | | | [address] | | | | | | [phone] | | | +--------+ + + + [...]
--- OUTSIDE RECORDS SUMMARY | ~2019-03-09 | XMS | Encounter Summary ---
Demographics + + + | Address | [address] | | | [place] [address] | + + + | Home Phone | | + + + | Preferred Language | Unknown | + + + | Marital Status | | + + + | Jew Affiliation | NRP | + + + | Race | White | + + + | Ethnic Group | Not or | + + + Author + + + | Author | [facility] | + + + | Organization | [facility] | + + + | Address | Unknown | + + + | Phone | Unavailable | + + + Support + + + + + | Name | Relationship | Address | Phone | + + + + + | Kole Willingham | [place] | [address] | | | | | [place], [place] | | | | | [address] | | + + + + + | Cami Sawyer | ECON | Unknown | | + + + + + Care Team Providers + +------+ + | Care Tractor Trailer Moving Van Driver Name | Role | Phone | [...] [address] | | | | | | [place], [place] | | | | | | [address] | | | +--------+ + + + [...]
--- OUTSIDE RECORDS SUMMARY | ~2019-03-09 | XMS | Encounter Summary ---
Demographics + + + | Address | [address] | | | [place] [address] | + + + | Home Phone [...] [place], [place] | | | | | [address] | | + + + + + | Cami Sawyer | ECON | Unknown | | + + + + + Care Team Providers + +------+ + | Care Coldfusion Name | Role | Phone | + [...] [address] | | | | | [place], [place] | [address] | | | 05/13/ | | | [place], [place] | | | 2014 | | [phone] | [address] | | | | | | [phone] | | | | | | | | | | | | fJ Wiseman MD | | | | | | [address] | | | | | | [address] | | | | | | [place], [place] | | | | | | [address] | | | | | | [phone] | | | | | | | [...] might be different f rom the original. [facility] [...] and is discharged to correction facility for [facility] care. Mackenzie Hartley is discharged in stable [...] 100mls three times a day. Destination: Destination: Shelter Facility Thank you for the opportunity to [...] might be different f rom the original. 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 for hanh gement of retroperitoneal bleed. 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 for management of retroperitoneal bleed. S [...] thrombosis while anticoagulated with warfarin transferred to [facility] from [facility] for management of retroperitoneal bleed. She [...] know if she wants to see the [facility] GI team - Stage I pressure [...] recommending [facility] since would be close to [facility] and she would benefit for aggres [...] with complication 03/12/2012 Jean-Claude Albrecht D.M.D., M.D. [facility] [address] [place] [place] [address] This assessment and plan was formulated both [...] MD - 05/11/2014 8:51 AM PST . 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 for management of retroperitoneal bleed. S [...] thrombosis while anticoagulated with warfarin transferred to [facility] from [facility] for management of retroperitoneal bleed. She [...] know if she wants to see the [facility] GI team - Stage I pressure [...] recommending [facility] since would be close to [facility] and she would benefit for aggres [...] with complication 03/12/2012 Jean-Claude Albrecht D.M.D., M.D. [facility] [address] [place] [place] [address] This assessment and plan was formulated both [...] being active. Pt's has been at the [facility] supporting her. Pt is not advent but appreciates support. Intervention: Provided a listening presence and explored pt's anxieties, worries and hopes. Plan: Spiritual care remains available. 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 for management of retroperitoneal bleed. S [...] thrombosis while anticoagulated with warfarin transferred to [facility] from [facility] for management of retroperitoneal bleed. She [...] know if she wants to see the [facility] GI team - Stage I pressure [...] recommending [facility] since would be close to [facility] and she would benefit for aggres [...] intestine with complication 03/12/2012 ANDREW VINCENT MD [facility] [address] [place] [address] This assessment and plan was [...] note might be different from the orig [facility]. 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 for management of retroperitoneal bleed. S [...] thrombosis while anticoagulated with warfarin transferred to [facility] from [facility] for management of retroperitoneal bleed. She [...] know if she wants to see the [facility] GI team - Stage I pressure [...] recommending [facility] since would be close to [facility] and she would benefit for aggres [...] intestine with complication 03/12/2012 ANDREW VINCENT MD [facility] [address] [place] [address] This assessment and plan was [...] might be different from the orig inal. 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 for management of retroperitoneal bleed. S [...] TROPONIN Imaging No new Cultures BLOOD CULTURE [facility] (no units) Date Value Range Status [...] thrombosis while anticoagulated with warfarin transferred to [facility] from [facility] for management of retroperitoneal bleed. She [...] know if she wants to see the [facility] GI team - Stage I pressure [...] recommending [facility] since would be close to [facility] and she would benefit for aggres [...] and large intestine with complication 03/12/2012 ANDREW VICNENT MD [facility] [address] [place] [address] This assessment and plan was formulated [...] this note might be different from the [facility] Department of Surgery Progress Note Author: Andrew Vincent MD General Surgery Resident Attending Physician: Jf Wiseman MD GENERAL SURGERY Progress Note: Hospital Day #: 14 ATTENDING: Jf Wiseman MD Identification: Mackenzie Hartley is a 58 year old female with COPD, Crohn's disease, chronic pa in, and 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 for management of retroperitoneal bleed. S [...] TROPONIN Imaging No new Cultures BLOOD CULTURE [facility] (no units) Date Value Range Status [...] thrombosis while anticoagulated with warfarin transferred to [facility] from [facility] for management of retroperitoneal bleed. She [...] intestine with complication 03/12/2012 ANDREW VINCENT MD [facility] [address] [place] [address] This assessment and plan was formulated both [...] note might be different from the orig [facility]. 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 for management of retroperitoneal bleed. S [...] TROPONIN Imaging No new Cultures BLOOD CULTURE [facility] (no units) Date Value Range Status [...] thrombosis while anticoagulated with warfarin transferred to [facility] from [facility] for management of retroperitoneal bleed. She [...] continued DHT,TF - Diet: NPO - per SENIOR INSPECTOR, high risk of aspiration - continue ice [...] intestine with complication 03/12/2012 ANDREW VINCENT MD [facility] [address] [place] [address] This assessment and plan was formulated both [...] might be different from the orig inal. 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 for management of retroperitoneal bleed. S [...] TROPONIN Imaging No new Cultures BLOOD CULTURE [facility] (no units) Date Value Range Status [...] thrombosis while anticoagulated with warfarin transferred to [facility] from [facility] for management of retroperitoneal bleed. She [...] intestine with complication 03/12/2012 ANDREW VINCENT MD [facility] [address]A [address] [place] [address] This assessment and plan was [...] the resident s note. PHIL VARMA MD [facility] [address] [place] [address] Rosa Sauer MD - 05/04/2014 8:26 AM [...] at referring hospital. She was transferred to [facility] f or active hemorrhage and [...] rounds. Rosa Reynoso, R2 SICU/Trauma Personal pager: [phone] Team pager: [phone] Angeles Acevedo MD - 05/04/2014 7:08 AM PST [facility] DEPARTMENT OF SURGERY EGS ICU Progress Note Division of Trauma and Critical Care ID: Mackenzie Hartley is a 58 year old female with COPD, Crohn's disease, chronic pain, and 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 while anticoagulated with warfarin transferre d to [facility] from [facility] for management of retroperitoneal bleed. She [...] thrombosis while anticoagulated with warfarin transferred to [facility] from [facility] for management of retroperitoneal bleed. She has required repeated transfers to ICU for respiratory status. She has been diuresed ap propriately while in the ICU and O2 needs have decreased significantly. Will transfer to [facility] [place], but need to keep a close [...] Hannah MD General Surgery Resident, R3 Pager [phone] [facility] [place] [address] [address] [facility] [address] Jf Jones MD - 05/03/2014 9:38 AM [...] - TF at goal, + BM Dysphagia: SENIOR INSPECTOR following- remains NPO Anasarca: compression socks,. Goal [...] Call team 01/11 for questions: Team Pager [phone] ATTENDING ADDENDUM: I saw and examined Mackenzie [...] Erin Christensen PA-C. Jf Wiseman MD FACS shirt cleaner Division of Trauma, Critical Care, and Acute Care Surgery [phone] Elda Emmanuel MD - 05/03/2014 3:49 AM PST EMERGENCY GENERAL SURGERY ICU PROGRESS NOTE: Attending Physician: Jf Wiseman MD 05/03/2014 ID: Mackenzie Hartley is a 58 year old female with COPD, Crohn's disease, chronic pain, and coagulopa thy resulting in splenic artery thrombosis while anticoagulated with warfarin transferred to [facility] from [facility] for management of retroperitoneal bleed. She [...] thrombosis while anticoagulated with warfarin transferred to [facility] from [facility] for management of retroperitoneal bleed. 1. [...] this patient encounter. Elda Glez MD Pager [phone] Plastic Surgery R2 [facility] Diagnoses: 555.2 Crohn's disease of both [...] holding Q6W Remicade- will consult hematology in [facility] yaritza week regarding of timing of resuming remicade Severe malnutrition: - TF at goal, + BM, Dysphagia: SENIOR INSPECTOR following- remains NPO Anasarca: compression socks,. Goal [...] Call team 01/11 for questions: Team Pager [phone] ATTENDING ADDENDUM: I saw and examined Mackenzie [...] Marge Harris PA-C. Jf Wiseman MD FACS shirt cleaner Division of Trauma, Critical Care, and Acute Care Surgery [phone] GIAHarAngeles oglesby MD - 05/02/2014 6:55 AM PST [facility] DEPARTMENT OF SURGERY EGS ICU Progress Note Division of Trauma and Critical Care ID: Mackenzie Hartley is a 58 year old female with COPD, Crohn's disease, chronic pain, and 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 while anticoagulated with warfarin transferre d to [facility] from [facility] for management of retroperitoneal bleed. She [...] MCV 98.0 05/02/2014 RDW 58.0 05/02/2014 ASSESSMENT/PLAN: Maceknzie Hartley is a 58 year old female with COPD, Crohn's disease, chronic pain, and coagulopa thy resulting in splenic artery thrombosis while anticoagulated with warfarin transferred to [facility] from [facility] for management of retroperitoneal bleed. Neuro: [...] Hannah MD General Surgery Resident, R3 Pager [phone] [place] [phone] arris, Angeles Hanna MD - 05/02/2014 2:14 [...] Hannah MD General Surgery Resident, R3 Pager [phone] ean-Claude Albrecht DMD, MD - 05/01/2014 10:36 AM PST [facility] DEPARTMENT OF SURGERY EGS Progress Note ID: Mackenzie Hartley is a 58 year old female with COPD, Crohn's disease, chronic pain, and 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 while anticoagulated with warfarin transferre d to [facility] from [facility] for management of retroperitoneal bleed. She [...] thrombosis while anticoagulated with warfarin transferred to [facility] from [facility] for management of retroperitoneal bleed. Overall, she is improving. However, remains tachycardic with leukocytosis - WBC [address] 05/01 showed - moderate ascites and pleural effusions and hematoma. Neuro: dilaudid IV PRN Speech: following continue daily to eval swallow CV: HD stable L MEDICAL CODING MANAGER PSA resolved Continue IV lasix today [...] acute care hospitalization Jean-Claude Albrecht D.M.D., M.D. [facility] [place] [facility] [place] [place] [address] Jf Jones MD - 04/30/2014 11:08 AM [...] at referring hospital. She was transferred to [facility] fo r active hemorrhage and [...] malnutrition: - pulled DHT- refusing replacement. Await SENIOR INSPECTOR eval if passes swallow will give chance to prove adequate po intake. Expect will require TFs again Dysphagia: await SENIOR INSPECTOR eval today. Cont meds and feed via [...] Call team 01/11 for questions: Team Pager [phone] ATTENDING ADDENDUM: I saw and examined Mackenzie [...] Marge Harris PA-C. Jf Wiseman MD FACS shirt cleaner Division of Trauma, Critical Care, and Acute Care Surgery [phone] Angeles Acevedo MD - 04/30/2014 1:18 AM PST [facility] DEPARTMENT OF SURGERY EGS ICU Progress Note Division of Trauma and Critical Care ID: Mackenzie Hartley is a 58 year old female with COPD, Crohn's disease, chronic pain, and 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 while anticoagulated with warfarin transferre d to [facility] from [facility] for management of retroperitoneal bleed. She [...] thrombosis while anticoagulated with warfarin transferred to [facility] from [facility] for management of retroperitoneal bleed. Overall, she is improving. However, remains tachycardic with leukocytosis -- difficult to t ease out if this is secondary to asplenia. Will obtain CT abd pelvis today to clarify. Neuro: dilaudid IV PRN and intermittent versed for sedation CV: HD stable L MEDICAL CODING MANAGER PSA resolved Pulm: titrate to O2 [...] Hannah MD General Surgery Resident, R3 Pager [phone] [facility] [place] [address] [address] [facility] [address] Aravind Morales MD - 04/29/2014 11:43 AM PSTICU Attending: I saw and examined Mackenzie Hartley ([id number]) with Erin Christensen PA-C on 04/29/14 and [...] of time documented by Kaci Massey MD [employer] Trauma, Critical Care & Acute Care Surgery [...] at referring hospital. She was transferred to [facility] fo r active hemorrhage. Hospital [...] resolving cont current H2O via DHT Dysphagia: SENIOR INSPECTOR consulted, ice chips only. Cont meds and [...] Call team 01/11 for questions: Team Pager [phone] Chelly Blum MD,M PH - 04/28/2014 3:03 [...] at referring hospital. She was transferred to [facility] fo r active hemorrhage. Hospital [...] Hyernatremia: resolving, reduce H2O to 30ml/hr Dysphagia: SENIOR INSPECTOR consulted, ice chips only. Cont meds and [...] Call team 01/11 for questions: Team Pager [phone] Angeles Acevedo MD - 04/28/2014 5:18 AM PST [facility] DEPARTMENT OF SURGERY EGS ICU Progress Note Division of Trauma and Critical Care ID: Mackenzie Hartley is a 58 year old female with COPD, Crohn's disease, chronic pain, and 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 while anticoagulated with warfarin transferre d to [facility] from [facility] for management of retroperitoneal bleed. She is s/p ex lap, splenectomy, and packing with lap pads at OSH and from reopening of laparotomy, evacua tion of 2-3 L of intraabdominal hematoma, closure of open abdomen SUBJECTIVE: Extubated, neurologically doing much better. 3 L NC Underwent successful thrombin injection of L MEDICAL CODING MANAGER pseudoaneurysm by IR 04/26 MEDICATIONS: Current [...] thrombosis while anticoagulated with warfarin transferred to [facility] from [facility] for management of retroperitoneal bleed. Neuro: dilaudid IV PRN and intermittent versed for sedation CV: HD stable Per vascular: arterial duplex of L MEDICAL CODING MANAGER to assess for stability of PSA [...] Hannah MD General Surgery Resident, R3 Pager [phone] [facility] [place] [address] [place] [address] Xin Irizarry M D - 04/27/2014 11:55 [...] diagnosti c imaging and laboratory study results [facility] DEPARTMENT: [id number] - HEM FACULTY [facility] Place of Service: - Inpatient Date of Service: 04-27-2014 Modifiers: GC - Resident Involved Suggested CPT: 92817 - Initial, Comp; Mod complex 50 min XIN AGEE MD [facility] [address] [place] [address] wpriya Rudy Markham Adriel - 04/27/2014 11:55 AM PST Hematology Consult Progress Note Primary Service: EGS Primary Attending: Jf Wiseman MD Hospital Length of Stay: 4 Interval Events: - extubated - thrombin injection to MEDICAL CODING MANAGER pseudoaneurysm - heparin gtt started last night Subjective: Patient is unable to provide history as she remains encephalopathic. Did speak with her , who confirmed history obtained in initial heme consult note. States she givens s been on warfarin since her 2011 [facility] admission with no known thrombotic events [...] assessme nt and plan. Rudy Sarmiento, DO [facility] Internal Medicine PGY3 Pager [phone] Mirela Josue MD - 04/27/2014 10:49 AM PST [facility] Department of Surgery Progress Note Author: [...] underwent successful thrombin injection of the left MEDICAL CODING MANAGER pseudoaneurysm by IR last night. Heparin [...] ultraso und guided thrombin injection of left MEDICAL CODING MANAGER pseudoanuerysm. Will order arterial duplex of left MEDICAL CODING MANAGER to assess for stability of pseudoaneurysm [...] - hemorrhage vs [facility] LUCY MARKS MD [address] [place] [address] This assessment and plan was formulated both independently and in conjunction with the [facility] ular Surgery Team as well as the attending provider of record above regarding management of this patient and their medical issues. It is accurate to the best of my knowledge, and is s ubject to modification based on clinical developments, new data, or final imaging results. [facility] staff I saw and evaluated the patient. I agree with the findings and the plan of care as petern laxmi in the resident s note. Left femoral pseudoaneurysm appears resolved. Stable from [facility] standpoint. No further imaging required unless clinical status changes. Mirela Thompson M.D. [facility] Vascular Surgery [address] [place] [address] Email: [email or web address] Jf Jones MD - 04/27/2014 8:03 [...] at referring hospital. She was transferred to [facility] fo r active hemorrhage. Hospital [...] H2O Hyernatremia: water 100ml/hr via DHT Dysphagia: SENIOR INSPECTOR consulted, ice chips only JULIANE: ATN from [...] Call team 01/11 for questions: Team Pager [phone] ATTENDING ADDENDUM: I saw and examined Mackenzie [...] Erin Christensen PA-C. Jf Wiseman MD FACS shirt cleaner Division of Trauma, Critical Care, and Acute Care Surgery [phone] aElda tejada MD - 04/27/2014 4:52 AM PST EMERGENCY GENERAL SURGERY ICU PROGRESS NOTE: Attending Physician: Jf Wiseman MD 04/27/2014 ID: Mackenzie Hartley is a 58 year old female with COPD, Crohn's disease, chronic pain, and coagulopa thy resulting in splenic artery thrombosis while anticoagulated with warfarin transferred to [facility] from [facility] for management of retroperitoneal bleed. She [...] HR EVENTS: - Incidentally found to have MEDICAL CODING MANAGER pseudoaneurysm, injected with thrombin by IR [...] thrombosis while anticoagulated with warfarin transferred to [facility] from [facility] for management of retroperitoneal bleed. Neuro: [...] this patient encounter. Elda Glez MD Pager [phone] Plastic Surgery R2 [facility] Diagnoses: 555.2 Crohn's disease of both [...] Attending:Dr. Lenny Calhoun MD (Fellow)/pager: Dr. Vang [phone] Medications Procedure Meds: Dilaudid IV 0.5mg Midazolam [...] at referring hospital. She was transferred to [facility] fo r active hemorrhage. Hospital [...] Call team 01/11 for questions: Team Pager [phone] Angeles Acevedo MD - 04/26/2014 5:24 AM PST [facility] DEPARTMENT OF SURGERY EGS ICU Progress Note Division of Trauma and Critical Care ID: Mackenzie Hartley is a 58 year old female with COPD, Crohn's disease, chronic pain, and 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 while anticoagulated with warfarin transferre d to [facility] from [facility] for management of retroperitoneal bleed. She [...] thrombosis while anticoagulated with warfarin transferred to [facility] from [facility] for management of retroperitoneal bleed. Neuro: [...] Hannah MD General Surgery Resident, R3 Pager [phone] [facility] & [place] [address] [address] [facility] [phone] ithya Bailey MD - 04/25/2014 6:40 AM PSTTSICU Attending 04/25/14 58 yo woman critically ill with complex surgical and medical history, transferred to [facility] intraabdominal and retroperitoneal hemorrhage 2 days [...] Call team 01/11 for questions: Team Pager [phone] Angeles Acevedo MD - 04/25/2014 4:39 AM PST [facility] DEPARTMENT OF SURGERY EGS ICU Progress Note Division of Trauma and Critical Care ID: Mackenzie Hartley is a 58 year old female with COPD, Crohn's disease, chronic pain, and 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 while anticoagulated with warfarin transferre d to [facility] from [facility] for management of retroperitoneal bleed. She [...] thrombosis while anticoagulated with warfarin transferred to [facility] from [facility] for management of retroperitoneal bleed. Neuro: [...] Hannah MD General Surgery Resident, R3 Pager [phone] [facility] & [place] [address] Rich Pappas MD - 04/24/2014 9:21 AM [...] extubate Initial surgical contact: Miladis at pager [phone] Nithya Andres MD - 04/24/2014 5:25 AM [...] exploration at referring hospital. IR embolization at [facility]. Hospital Day #1 ICU Day #2 [...] Call team 01/11 for questions: Team Pager [phone] Angeles Acevedo MD - 04/24/2014 2:04 AM PST [facility] DEPARTMENT OF SURGERY EGS Consult Progress Note Division of Trauma and Critical Care ID: Mackenzie Hartley is a 58 year old female with COPD, Crohn's disease, chronic pain, and 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 while anticoagulated with warfarin transferre d to [facility] from [facility] for management of retroperitoneal bleed. She [...] thrombosis while anticoagulated with warfarin transferred to [facility] from [facility] for management of retroperitoneal bleed. 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 MEDICATIONS: Fentanyl IV 150 mcg Midazolam [...] | + +--------+ + + + | [facility] | Routin | 04/27/2014 | [...] | + + + + + | [facility] | [address] | [place] [address] | | | JANELL SHARP | BERTRAM [...] Lupe SANDERS | [address] | [place], [place] | | | [facility] | [address] | [address] | | | TESTS | | | [...] [facility] | [address] | [place] [address] | | | SERVICES, CORE | PARK [...] [facility] | [address] | [place] [address] | | | SERVICES, CORE | PARK [...] | | | LABORATORY | | | NAURUAN | | | SERVICES, | | | [...] | + + + + + | [facility] | [address] | [place] [address] | | | ARON, JANELL | BERTRAM [...] MAR[facility] | [address] | [place], [place] | | | H[place], POINT OF CARE | [address] | [address] | | | TESTS | | | [...] MAR[facility] | [address] | [place], [place] | | | [place] | [address] | [address] | | | TESTS | | | [...] | + + + + + | [facility] | [address] | [place] [address] | | | SERVICES, CORE | [address] | | | + + + + + MAGNESIUM, PLASMA (05/12/2014 1:07 AM PST) + +---------+ + + + | Component | Value | Ref Range | Performed | Pathologist | | | | | At | Signature | + +---------+ + + + | MAGNESIUM,P | 1.5 (L) | 1.8 - 2.5 mg/dL | [facility] | | | J[facility] | | | [...] | + + + + + | [facility] | [address] | [place] [address] | | | SERVICES, CORE [...] | | | LABORATORY | | | NAURUAN | | | SERVICES, | | | [...] the MDRD equation recommended by the | [facility] | | National Kidney Disease Education [...] | + + + + + | [facility] | [address] | [place] [address] | | | JANELL SHARP | BERTRAM [...] | + + + + + | [facility] | [address] | [place] [address] | | | JANELL SHARP | BERTRAM [...] - MARILYN | [address] | [place], [place] | | | [place] | [address] | [address] | | | TESTS | | | [...] (H) | 60 - 99 mg/dL | [facility] - | | | GLUCOSE, | [...] SANDERS | [address] | [place], [place] | | | [place]AR [place]INT OF CARE | [address] | [address] | | | TESTS | | | [...] | + + + + + | [facility] | [address] | [place] [address] | | | SERVICES, CORE | PARK [...] | + + + + + | [facility] [employer] [facility] | [address] | [place] [address] | | | SERVICES, CORE | BERTRAM [...] | | | LABORATORY | | | NAURUAN | | | SERVICES, | | | [...] | + + + + + | [facility] | [address] | [place] [address] | | | SERVICES, CORE | PARK [...] (H) | 0.90 - 1.20 INR | [facility] | | | | | | [...] | + + + + + | [facility] | [address] | [place] [address] | | | SERVICES, CORE | PARK [...] - MAR[facility] | [address] | [place], [place] | | | [place] CARE | [address] | [address] | | | TESTS | | | [...] + + + | [facility] | [address] | [place], [place] | | | [facility] | [address] | [address] | | | TESTS | | | [...] | | | | | | MIRELA SALGDAO MD I | | | | | [...] | | + +---------+ + + | [facility] DEPARTMENT OF | | | | [...] MARQUAM | [address] | [place], [place] | | | [place] [place]INT OF CARE | [address] | [address] | | | TESTS | | | [...] MARQUAM | [address] | [place], [place] | | | [facility] | [address] | [address] | | | TESTS | | | [...] | + + + + + | [facility] | [address] | [place] [address] | | | SERVICES, CORE | [address] | | | + + + + + MAGNESIUM, PLASMA (05/10/2014 3:39 AM PST) + +---------+ + + + | Component | Value | Ref Range | Performed | Pathologist | | | | | At | Signature | + +---------+ + + + | MAGNESIUM,P | 1.4 (L) | 1.8 - 2.5 mg/dL | [facility] | | | JFMA | | [...] | + + + + + | [facility] | [address] | [place] [address] | | | SERVICES, CORE | PARK [...] | | | LABORATORY | | | NAURUAN | | | SERVICES, | | | [...] the MDRD equation recommended by the | [facility] | | National Kidney Disease Education [...] | + + + + + | [facility] | [address] | [place] [address] | | | ARON, JANELL | BERTRAM [...] | + + + + + | [facility] | [address] | [place] [address] | | | JANELL SHARP | BERTRAM [...] DAVIDAM | [address] | [place], [place] | | | [facility]ARE | [facility] | [address] | | | TESTS | | | [...] SANDERS | [address] | [place], [place] | | | [place] [place]INT [facility] CARE | [address] | [address] | | | TESTS | | | [...] MARQUAM | [address] | [place], [place] | | | [place] | [address] | [address] | | | TESTS | | | [...] | + + + + + | [facility] | [address] | [place] [address] | | | SERVICES, CORE | BERTRAM [...] [facility] | [address] | [place] [address] | | | SERVICES, CORE | PARK [...] | | | LABORATORY | | | NAURUAN | | | SERVICES, | | | [...] | + + + + + | [facility] | [address] | [place] [address] | | | SERVICES, CORE | PARK [...] | + + + + + | [facility] | [address] | [place] [address] | | | SERVICES, CORE | BERTRAM [...] (H) | 60 - 99 mg/dL | [facility] - | | | GLUCOSE, | [...] + + + | [facility] | [address] | [place], [place] | | | [place]INT OF CARE | [address] | [address] | | | TESTS | | | [...] MARQUAM | [address] | [place], [place] | | | [facility] [place]INT [facility] CARE | [address] | [address] | | | TESTS | | | [...] | + + + + + | [facility] | [address] | [place] [address] | | | SERVICES, JANELL | BERTRAM [...] [facility] | [address] | [place] [address] | | | SERVICES, CORE | PARK [...] | | | LABORATORY | | | NAURUAN | | | SERVICES, | | | [...] | + + + + + | [facility] | [address] | [place] [address] | | | SERVICES, CORE | PARK [...] | + + + + + | [facility] | [address] | [place] [address] | | | SERVICES, CORE | BERTRAM [...] SANDERS | [address] | [place], [place] | | | [place] | [facility] | [address] | | | TESTS | | | [...] - DAVIDAM | [address] | [place], [place] | | | [facility]AR POINT OF CARE | [facility] | [address] | | | TESTS | | | [...] [facility] | [address] | [place] [address] | | | JANELL SHARP | PARK [...] [facility] | [address] | [place] [address] | | | SERVICES, CORE | BERTRAM [...] | | | LABORATORY | | | NAURUAN | | | SERVICES, | | | [...] [facility] | [address] | [place] [address] | | | SERVICES, CORE | BERTRAM [...] | + + + + + | [facility] | [address] | [place] [address] | | | SERVICES, JANELL | PARK [...] MARQU[facility] | [address] | [place], [place] | | | [facility] | [address] | [address] | | | TESTS | | | [...] | + + + + + | [facility] | [address] | [place] [address] | | | SERVICES, CORE | BERTRAM [...] (H) | 60 - 99 mg/dL | [facility] - | | | GLUCOSE, | [...] SANDERS | [address] | [place], [place] | | | [place] [facility]ARE | [address] | [address] | | | TESTS | | | [...] MARQUAM | [address] | [place], [place] | | | [place] | [address] | [address] | | | TESTS | | | [...] | + + + + + | [facility] | [address] | [place] [address] | | | SERVICES, CORE | BERTRAM [...] [facility] | [address] | [place] [address] | | | SERVICES, CORE | PARK [...] | | | LABORATORY | | | NAURUAN | | | SERVICES, | | | [...] | + + + + + | [facility] | [address] | [place] [address] | | | SERVICES, CORE | PARK [...] [facility] | [address] | [place] [address] | | | SERVICES, CORE | BERTRAM [...] + + | [facility] | [address] | [place] [address] | | | SERVICES, CORE | PARK [...] [facility] | [address] | [place] [address] | | | ARON, CORE | BERTRAM [...] [facility] | [address] | [place] [address] | | | SERVICES, CORE | BERTRAM [...] | | | LABORATORY | | | NAURUAN | | | SERVICES, | | | [...] | + + + + + | [facility] | [address] | [place] [address] | | | SERVICES, CORE | PARK [...] | + + + + + | Room 77 | [address] | [place] [address] | | | SERVICES, CORE | [address] | | | + + + + + WELCOME TO [employer] (VIDEO) (05/04/2014 2:18 PM PST) + +--------+ [...] + + + + | [facility] | [address] | [place] [address] | | | [facility] | [address] | | | + + [...] [facility] | [address] | [place] [address] | | | SERVICES, CORE | PARK [...] [facility] | [address] | [place] [address] | | | SERVICES, [facility] | [address] [...] [facility] | [address] | [place] [address] | | | SERVICES, CORE | PARK [...] [facility] | [address] | [place] [address] | | | SERVICES, CORE | PARK [...] | | | LABORATORY | | | NAURUAN | | | SERVICES, | | | [...] | + + + + + | [facility] | [address] | [place] [address] | | | SERVICES, CORE | BERTRAM [...] | + + + + + | [facility] | [address] | [place] [address] | | | SERVICES, CORE | BERTRAM [...] [facility] | [address] | [place] [address] | | | SERVICES, CORE | PARK [...] [facility] | [address] | [place] [address] | | | SERVICES, CORE | PARK [...] [facility] | [address] | [place] [address] | | | SERVICES, CORE | PARK [...] | + + + + + | [facility] | [address] | [place] [address] | | | SERVICES, CORE | PARK [...] [facility] | [address] | [place], [place] | | | [facility] CARE | [address] | [address] | | | TESTS | | | [...] | + + + + + | [facility] | [address] | [place] [address] | | | SERVICES, CORE | PARK [...] | + + + + + | [facility] | [address] | [place] [address] | | | SERVICES, CORE | PARK [...] | | | LABORATORY | | | NAURUAN | | | SERVICES, | | | | | | CORE | | + +---------+ + + + | EGFR NON | >60 | >60 mL/min | [facility] | | | -LUSI | | | LABORAT[facility] | | | [...] | + + + + + | [facility] | [address] | [place] [address] | | | SERVICES, CORE | BERTRAM [...] | + + + + + | [facility] | [address] | [place] [address] | | | SERVICES, CORE | BERTRAM [...] [facility] | [address] | [place] [address] | | | ARON, JANELL | PARK [...] | | | LABORATORY | | | NAURUAN | | | SERVICES, | | | [...] the MDRD equation recommended by the | [facility] | | National Kidney Disease Education Program. [...] + + | [facility] | [address] | [place] [address] | | | SERVICES, CORE | PARK [...] | | | LABORATORY | | | NAURUAN | | | SERVICES, | | | [...] | + + + + + | [facility] | [address] | [place] [address] | | | SERVICES, [facility] | [address] [...] + + | [facility] | [address] | [place], [place] | | | THERAPY | [address] | [address] | | + + + + + [...] [facility] | [address] | [place], [place] | | | THERAPY | [address] | [address] | | + + + + + [...] [facility] | [address] | [place] [address] | | | SERVICES, CORE | PARK [...] | + + + + + | [facility] | [address] | [place] [address] | | | ARON, JANELL | BERTRAM [...] [facility] | [address] | [place] [address] | | | SERVICES, CORE | [address] [...] | | | LABORATORY | | | NAURUAN | | | SERVICES, | | | [...] | + + + + + | Room 77 | [address] | [place] [address] | | | SERVICES, CORE | PARK [...] | + + + + + | [facility] | [address] | [place] [address] | | | SERVICES, CORE | PARK [...] DEPT OF | [address] | [place], [place] | | | CARDIOLOGY | [address] | [address] | | + + + + + X-RAY PORTABLE CHEST 1 VIEW (05/02/2014 2:11 AM PST) + + + + + + | Component | Value | Ref Range | Performed | Pathologist | | | | | At | Signature | + + + + + + | X-RAY | EXAM: MS CHEST 1 VIEW | | | | [...] | + + + + + | [facility] | [address] | [place] [address] | | | SERVICES, CORE | PARK [...] SANDERS | [address] | [place], [place] | | | [place] | [facility] | [address] | | | TESTS | | | [...] - MARILYN | [address] | [place], [place] | | | [facility] | [facility] | [address] | | | TESTS | | | [...] | + + + + + | [facility] | [address] | [place] [address] | | | SERVICES, CORE | [address] | | | + + + + + X-RAY PORTABLE CHEST 1 VIEW (05/01/2014 3:37 AM PST) + + + + + + | Component | Value | Ref Range | Performed | Pathologist | | | | | At | Signature | + + + + + + | X-RAY | EXAM: MS CHEST 1 VIEW | | | | [...] Bilateral | | | | | | [id number] | | | | | | pleural [...] [facility] | [address] | [place] [address] | | | SERVICES, JANELL | [address] [...] | + + + + + | [facility] | [address] | [place] [address] | | | SERVICES, CORE | [address] [...] | | | LABORATORY | | | NAURUAN | | | SERVICES, | | | [...] the MDRD equation recommended by the | [facility] | | National Kidney Disease Education Program. [...] [facility] | [address] | [place] [address] | | | SERVICES, CORE | PARK [...] | + + + + + | [facility] | [address] | [place] [address] | | | JANELL SHARP | [address]TRAM [...] SANDERS | [address] | [place], [place] | | | [facility] | [facility] | [address] | | | TESTS | | | [...] + + | Performing | Address | City[facility]State[facility] | Phone Number | | Organization | | | | + +---------+ + + | [facility] DEPARTMENT OF | | | | [...] + + + | X-RAY | STUDY: MS CHEST 1 VIEW | | | | [...] | + + + + + | [facility] | [address] | [place] [address] | | | SERVICES, CORE | PARK [...] | + + + + + | [facility] | [address] | [place] [address] | | | JANELL SHARP | BERTRAM [...] | + + + + + | [facility] | [address] | [place] [address] | | | JANELL SHARP | BERTRAM [...] | | | LABORATORY | | | NAURUAN | | | SERVICES, | | | [...] | + + + + + | [facility] | [address] | [place] [address] | | | SERVICES, CORE | PARK [...] | | | LABORATORY | | | NAURUAN | | | SERVICES, | | | [...] the MDRD equation recommended by the | [facility] | | National Kidney Disease Education [...] | + + + + + | [facility] | [address] | [place] [address] | | | ARON, JANELL | BERTRAM [...] [facility] | [address] | [place], [place] | | | [facility] | [address] | [address] | | | TESTS | | | [...] [facility] | [address] | [place] [id number] | | | SERVICES, CORE | BERTRAM [...] [facility] | [address] | [place] [address] | | | SERVICES, CORE | PARK [...] | | | LABORATORY | | | NAURUAN | | | SERVICES, | | | [...] | + + + + + | Room 77 | [address] | [place] [address] | | | ARON, JANELL | BERTRAM [...] | + + + + + | [facility] | [address] | [place] [address] | | | SERVICES, JANELL | [address] [...] | + + + + + | [facility] | [address] | [place] [address] | | | SERVICES, CORE | BERTRAM [...] (H) | 60 - 99 mg/dL | [facility] - | | | GLUCOSE, | [...] SANDERS | [address] | [place], [place] | | | [facility] POINT [facility] CARE | [address] | [address] | | | TESTS | | | [...] [facility] | [address] | [place] [address] | | | SERVICES, CORE | PARK [...] [facility] | [address] | [place] [address] | | | SERVICES, CORE | PARK [...] [facility] | [address] | [place] [address] | | | SERVICES, CORE | PARK [...] [facility] | [address] | [place] [address] | | | SERVICES, CORE | PARK [...] | | | LABORATORY | | | NAURUAN | | | SERVICES, | | | [...] | + + + + + | [facility] | [address] | [place] [address] | | | SERVICES, JANELL | [address] [...] | + + + + + | [facility] | [address] | [place] [address] | | | ARON, JANELL | BERTRAM [...] | + + + + + | [facility] | [address] | [place] [address] | | | SERVICES, CORE | PARK [...] | | + +---------+ + + | [facility] DEPARTMENT OF | | | | [...] | + + + + + | [facility] | [address] | [place] [address] | | | ARON, JANELL | BERTRAM [...] SANDERS | [address] | [place], [place] | | | [facility] | [address] | [address] | | | TESTS | | | | + + + + + X-RAY ABD LTD FEEDING TUBE EVAL PORTABLE (04/27/2014 10:33 AM PST) + + + + + + | Component | Value | Ref Range | Performed | Pathologist | | | | | At | Signature | + + + + + + | X-RAY ABD | STUDY: MS ABD LTD | | | | | [...] [facility] | [address] | [place] [address] | | | ARON, JANELL | BERTRAM [...] | + + + + + | [facility] | [address] | [place] [address] | | | SERVICES, CORE | BERTRAM [...] | + + + + + | [facility] | [address] | [place] [address] | | | SERVICES, CORE | BERTRAM [...] [facility] | [address] | [place] [address] | | | SERVICES, CORE | PARK [...] | | | LABORATORY | | | NAURUAN | | | SERVICES, | | | [...] | + + + + + | [facility] | [address] | [place] [address] | | | SERVICES, CORE | BERTRAM [...] [facility] | [address] | [place] [address] | | | SERVICES, JANELL | PARK [...] | + + + + + | [facility] | [address] | [place] [address] | | | SERVICES, CORE | BERTRAM [...] | + + + + + | [facility] | [address] | [place] [address] | | | SERVICES, CORE | PARK [...] [facility] | [address] | [place] [address] | | | SERVICES, CORE | [address] | | | + + + + + MAGNESIUM, PLASMA (04/26/2014 7:41 PM PST) + +-------+ + + + | Component | Value | Ref Range | Performed | Pathologist | | | | | At | Signature | + +-------+ + + + | MAGNESIUM,P | 2.0 | 1.8 - 2.5 mg/dL | [facility] | | | LASMA | | [...] | + + + + + | [facility] | [address] | [place] [address] | | | SERVICES, CORE | PARK [...] | | | LABORATORY | | | NAURUAN | | | SERVICES, | | | [...] | + + + + + | [facility] | [address] | [place] [address] | | | SERVICES, CORE | BERTRAM [...] PRIMARY | | | | | | FINANCIAL INTERN: Rudy | | | | | | [...] SANDERS | [address] | [place], [place] | | | [facility] | [facility] | [address] | | | TESTS | | | | + + + + + [facility] CHRIS EXT CALEB MONTERROSO [...] | | + +---------+ + + | [facility] DEPARTMENT OF | | | | [...] | + + + + + | [facility] | [address] | [place], [place] [address] | | | SERVICES, CORE | BERTRAM [...] [facility] | [address] | [place] [address] | | | SERVICES, CORE | PARK [...] | + + + + + | [facility] | [address] | [place] [address] | | | SERVICES, CORE | PARK [...] | + + + + + | [facility] | [address] | [place] [address] | | | SERVICES, CORE | BERTRAM [...] | + + + + + | Room 77 | [address] | [place] [address] | | | SERVICES, CORE | PARK [...] [facility] | [address] | [place] [address] | | | SERVICES, CORE | PARK [...] | | | LABORATORY | | | NAURUAN | | | SERVICES, | | | [...] | + + + + + | [facility] | [address] | [place] [address] | | | JANELL SHARP | BERTRAM [...] [facility] | [address] | [place] [address] | | | SERVICES, CORE | PARK [...] | + + + + + | [facility] | [address] | [place] [address] | | | JANELL SHARP | BERTRAM [...] [facility] | [address] | [place], [place] | | | [facility] | [address] | [address] | | | TESTS | | | [...] | | | LABORATORY | | | NAURUAN | | | SERVICES, | | | [...] the MDRD equation recommended by the | [facility] | | National Kidney Disease Education [...] | + + + + + | [facility] | [address] | [place] [address] | | | JANELL SHARP | BERTRAM [...] MARILY[facility] | [address] | [place], [place] | | | [place], POINT OF CARE | [address] | [address] | | | TESTS | | | [...] [facility] | [address] | [place] [address] | | | SERVICES, CORE | BERTRAM [...] | + + + + + | [facility] | [address] | [place] [address] | | | SERVICES, CORE | BERTRAM [...] + + + + | PRODUCT | [id number] | | [facility] | | | UNIT [...] + + + + | BLOOD | [id number] | | [facility] | | | PRODUCT [...] DEPARTMENT OF | [address] | [place] [address] | | | PATHOLOGY | [address] [...] + + + + | PRODUCT | [id number] | | [facility] | | | UNIT [...] + + + + | BLOOD | [id number] | | [facility] | | | PRODUCT [...] DEPARTMENT OF | [address] | [place] [address] | | | PATHOLOGY | [address] [...] | + + + + + | [facility] | [address] | [place] [address] | | | SERVICES, JANELL | PARK [...] | + + + + + | [facility] | [address] [facility] [address] | [place] [address] | | | SERVICES, CORE | PARK [...] | | | LABORATORY | | | NAURUAN | | | SERVICES, | | | [...] the MDRD equation recommended by the | [facility] | | National Kidney Disease Education [...] | + + + + + | [facility] | [address] | [place] [address] | | | JANELL SHARP | BERTRAM [...] + + | [facility] | [address] | [place] [address] | | | SERVICES, CORE | PARK [...] [facility] | [address] | [place] [address] | | | SERVICES, CORE | PARK [...] [facility] | [address] | [place] [address] | | | SERVICES, CORE | BERTRAM [...] | + + + + + | [facility] | [address] | [place] [address] | | | SERVICESJANELL | [address] [...] MARGOPIAM | [address] | [place], [place] | | | [facility] | [facility] | [address] | | | TESTS | | | [...] SANDERS | [address] | [place], [place] | | | [facility] | [address] | [address] | | | TESTS | | | [...] [facility] | [address] | [place] [address] | | | SERVICES, CORE | BERTRAM [...] | + + + + + | [facility] | [address] | [place] [address] | | | SERVICES, CORE | BERTRAM [...] [facility] | [address] | [place] [address] | | | ARON, CORE | BERTRAM [...] | + + + + + | [facility] | [address] | [place] [address] | | | SERVICES, JANELL | [address] | | | + + + + + X-RAY PORTABLE CHEST 1 VIEW (04/24/2014 5:32 AM PST) + + + + + + | Component | Value | Ref Range | Performed | Pathologist | | | | | At | Signature | + + + + + + | X-RAY | STUDY: MS CHEST 1 VIEW | | | | [...] | | + +---------+ + + | [facility] DEPARTMENT | | | | | [...] | + + + + + | [facility] | [address] | [place] [address] | | | JANELL SHARP | BERTRAM [...] | | | LABORATORY | | | NAURUAN | | | SERVICES, | | | [...] [facility] | [address] | [place] [address] | | | SERVICES, CORE | PARK [...] | + + + + + | Room 77 | [address] | [place] [address] | | | SERVICES, CORE | PARK [...] | + + + + + | [facility] | [address] | [place] [address] | | | SERVICES, CORE | BERTRAM [...] [facility] | [address] | [place], [place] | | | THERAPY | [address] | [address] | | + + + + + [...] [facility] | [address] | [place], [place] | | | THERAPY | [address] | [address] | | + + + + + [...] | | | LABORATORY | | | NAURUAN | | | SERVICES, | | | [...] the MDRD equation recommended by the | [facility] | | National Kidney Disease Education [...] | + + + + + | [facility] | [address] | [place] [address] | | | SERVICES, CORE | PARK [...] [facility] | [address] | [place] [address] | | | SERVICES, CORE | PARK [...] | + + + + + | [facility] | [address] [facility] | [place] [address] | | | SERVICES, CORE | PARK [...] [facility] | [address] | [place] [address] | | | SERVICES, CORE | BERTRAM [...] + + | [facility] | [address] [facility] | [place] [address] | | | SERVICES, JANELL | BERTRAM [...] [facility] | [address] | [place] [address] | | | SERVICES, CORE | PARK [...] [facility] | [address] | [place] [address] | | | SERVICES, CORE | PARK [...] | | | LABORATORY | | | NAURUAN | | | SERVICES, | | | [...] | + + + + + | [facility] | [address] | [place] [address] | | | SERVICES, CORE | BERTRAM [...] | + + + + + | [facility] | [address] | [place] [address] | | | JANELL SHARP | BERTRAM [...] + + + | [facility] | [address] | [place], [place] | | | [facility] [place] | [address] | [address] | | | TESTS | | | [...] PRIMARY | | | | | | FINANCIAL INTERN: Rudy | | | | | | [...] 5 | | | | | | Icelandic vascular sheath | | | | | [...] | | | | for a 5 Icelandic | | | | | | IMAcatheter. [...] | | | | artery. A 3 Icelandic | | | | | | microcatheterwas [...] | | | | | | MD LENYN I have | | | | | [...] [facility] | [address] | [place], [place] | | | CARDIOLOGY | [address] | [address] | | + + + + + [...] + + + + | PRODUCT | [id number] | | [facility] | | | UNIT [...] + + + + | BLOOD | [id number] | | [facility] | | | PRODUCT [...] | + + + + + | [facility] DEPARTMENT OF | [address] | [place] [address] | | | PATHOLOGY | [address] [...] + + + + | PRODUCT | [id number] | | [facility] | | | UNIT [...] + + + + | BLOOD | [id number] | | [facility] | | | PRODUCT [...] | + + + + + | [facility] DEPARTMENT OF | [address] | [place] [address] | | | PATHOLOGY | [address] [...] + + + + | PRODUCT | [id number] | | [facility] | | | UNIT [...] + + + + | BLOOD | [id number] | | [facility] | | | PRODUCT [...] OF | [address] | [place] [address] | | | PATHOLOGY | [address] [...] + + + + | PRODUCT | [id number] | | [facility] | | | UNIT [...] + + + + | BLOOD | [id number] | | [facility] | | | PRODUCT [...] | + + + + + | [facility] DEPARTMENT OF | [address] | [place] [address] | | | PATHOLOGY | [address] [...] + + + + | PRODUCT | [id number] | | [facility] | | | UNIT [...] + + + + | BLOOD | [id number] | | [facility] | | | PRODUCT [...] DEPARTMENT OF | [address] | [place] [address] | | | PATHOLOGY | [address] [...] + + + + | PRODUCT | [id number] | | [facility] | | | UNIT [...] + + + + | BLOOD | [id number] | | [facility] | | | PRODUCT [...] | + + + + + | [facility] DEPARTMENT OF | [address] | [place] [address] | | | PATHOLOGY | [address] | | | + + + + + X-RAY PORTABLE CHEST 1 VIEW (04/23/2014 11:41 AM PST) + + + + + + | Component | Value | Ref Range | Performed | Pathologist | | | | | At | Signature | + + + + + + | X-RAY | EXAM: MS CHEST 1 VIEW | | | | [...] | | + +---------+ + + | [facility] DEPARTMENT OF | | | | [...] + + + + | PRODUCT | [id number] | | [facility] | | | UNIT [...] + + + + | BLOOD | [id number] | | [facility] | | | PRODUCT [...] DEPARTMENT OF | [address] | [place] [address] | | | PATHOLOGY | [address] [...] + + + + | PRODUCT | [id number] | | [facility] | | | UNIT [...] + + + + | BLOOD | [id number] | | [facility] | | | PRODUCT [...] DEPARTMENT OF | [address] | [place] [address] | | | PATHOLOGY | [address] [...] + + + + | PRODUCT | [id number] | | [facility] | | | UNIT [...] + + + + | BLOOD | [id number] | | [facility] | | | PRODUCT [...] DEPARTMENT OF | [address] | [place] [address] | | | PATHOLOGY | [address] [...] + + + + | PRODUCT | [id number] | | [facility] | | | UNIT [...] + + + + | BLOOD | [id number] | | [facility] | | | PRODUCT [...] | + + + + + | [facility] DEPARTMENT OF | [address] | [place] [address] | | | PATHOLOGY | [address] [...] + + + + | PRODUCT | [id number] | | [facility] | | | UNIT [...] + + + + | BLOOD | [id number] | | [facility] | | | PRODUCT [...] | + + + + + | [facility] DEPARTMENT OF | [address] | [place] [address] | | | PATHOLOGY | [address] [...] + + + + | PRODUCT | [id number] | | [facility] | | | UNIT [...] + + + + | BLOOD | [id number] | | [facility] | | | PRODUCT [...] | + + + + + | [facility] | [address] | [place] [address] | | | PATHOLOGY | [address] [...] + + + + | PRODUCT | [id number] | | [facility] | | | UNIT [...] + + + + | BLOOD | [id number] | | [facility] | | | PRODUCT [...] DEPARTMENT OF | [address] | [place] [address] | | | PATHOLOGY | [address] [...] + + + + | PRODUCT | [id number] | | [facility] | | | UNIT [...] + + + + | BLOOD | [id number] | | [facility] | | | PRODUCT [...] | + + + + + | [facility] | [address] | [place] [address] | | | PATHOLOGY | [address] [...] + + + + | PRODUCT | [id number] | | [facility] | | | UNIT [...] + + + + | BLOOD | [id number] | | [facility] | | | PRODUCT [...] [facility] | [address] | [place] [address] | | | PATHOLOGY | [address] [...] + + + + | PRODUCT | [id number] | | [facility] | | | UNIT [...] + + + + | BLOOD | [id number] | | [facility] | | | PRODUCT [...] | + + + + + | [facility] DEPARTMENT OF | [address] | [place] [address] | | | PATHOLOGY | [address] [...] + + + + | PRODUCT | [id number] | | [facility] | | | UNIT [...] + + + + | BLOOD | [id number] | | [facility] | | | PRODUCT [...] | + + + + + | [facility] DEPARTMENT | [address] | [place] [address] | | | PATHOLOGY | [address] [...] + + + + | PRODUCT | [id number] | | [facility] | | | UNIT [...] + + + + | BLOOD | [id number] | | [facility] | | | PRODUCT [...] | + + + + + | [facility] DEPARTMENT OF | [address] | [place] [address] | | | PATHOLOGY | [address] [...] + + + + | PRODUCT | [id number] | | [facility] | | | UNIT [...] + + + + | BLOOD | [id number] | | [facility] | | | PRODUCT [...] | + + + + + | [facility] DEPARTMENT OF | [address] | [place] [address] | | | PATHOLOGY | [address] [...] + + + + | PRODUCT | [id number] | | [facility] | | | UNIT [...] + + + + | BLOOD | [id number] | | [facility] | | | PRODUCT [...] | + + + + + | [facility] DEPARTMENT OF | [address] | [place] [address] | | | PATHOLOGY | [address] [...] [facility] | [address] | [place] [address] | | | SERVICES, CORE | PARK [...] [facility] | [address] | [place] [address] | | | SERVICES, CORE | BERTRAM [...] | + + + + + | [facility] | [address] | [place] [address] | | | JANELL SHARP | [address] [...] | | | LABORATORY | | | NAURUAN | | | SERVICES, | | | [...] [facility] | [address] | [place] [address] | | | SERVICES, CORE | PARK [...] [facility] | [address] | [place] [address] | | | SERVICES, CORE | PARK [...] [facility] | [address] | [place] [address] | | | SERVICES, CORE | PARK [...] | + + + + + | [facility] | [address] | [place] [address] | | | ARON, JANELL | BERTRAM [...] 89 | 60 - 99 mg/dL | [facility] - | | | GLUCOSE, | [...] [facility] | [address] | [place], [place] | | | [facility] | [address] | [address] | | | TESTS | | | [...] [facility] | [address] | [place] [address] | | | SERVICES, | [address] [...] LABORATORY | [address] | [place] [address] | | | SERVICES, | [address] [...] + + + + | PRODUCT | [id number] | | [facility] | | | UNIT [...] + + + + | BLOOD | [id number] | | [facility] | | | PRODUCT [...] | + + + + + | [facility] DEPARTMENT OF | [address] | [place] [address] | | | PATHOLOGY | [address] [...] + + + + | PRODUCT | [id number] | | [facility] | | | UNIT [...] + + + + | BLOOD | [id number] | | [facility] | | | PRODUCT [...] [facility] | [address] | [place] [address] | | | PATHOLOGY | [address] [...] + + + + | PRODUCT | [id number] | | [facility] | | | UNIT [...] + + + + | BLOOD | [id number] | | [facility] | | | PRODUCT [...] | + + + + + | [facility] | [address] | [place] [address] | | | PATHOLOGY | [address] [...] + + + + | PRODUCT | [id number] | | [facility] | | | UNIT [...] + + + + | BLOOD | [id number] | | [facility] | | | PRODUCT [...] DEPARTMENT OF | [address] | [place] [address] | | | PATHOLOGY | [address] [...] + + + + | PRODUCT | [id number] | | [facility] | | | UNIT [...] + + + + | BLOOD | [id number] | | [facility] | | | PRODUCT [...] | + + + + + | [facility] | [address] | [place] [address] | | | PATHOLOGY | [address] [...] + + + + | PRODUCT | [id number] | | [facility] | | | UNIT [...] + + + + | BLOOD | [id number] | | [facility] | | | PRODUCT [...] | + + + + + | [facility] | [address] | [place] [address] | | | PATHOLOGY | [address] [...] | | | | | modification) on [facility] 05/02/14 at | | | | [...] | | | | ONCE, 1 dose, [facility] 04/24/14 at | | AM PST | | | | | 1015 | | | | | | + +-------+ +-------+---+---+ +---+---+ | | | +---+---+ + +-------+ +-------+---+---+ | bisacodyl (DULCOLAX) | Given | 04/25/19 | 10 mg | | | | suppository 10 mg 10 mg, rectal, | | 15 10:55 | | | | | ONCE, 1 dose, [facility] 04/25/14 at | | AM PST [...] | | | intravenous, ONCE, 1 dose, [facility] | | PM PST | | | [...] | | | | | modification) on [facility] 05/02/14 at | | | | [...] PM PST | | | | | [facility] 05/02/14 at 1700, Until | | | [...] | | | | | dose on [facility] 05/02/14 at 0530, | | | [...] | | | (after last modification) on [facility] | | | | | | [...]
--- OUTSIDE RECORDS SUMMARY | ~2019-03-09 | XMS | Encounter Summary ---
Demographics + + + | Address | [address] | | | [place] [address] | + + + | Home Phone [...] + + + | Author | [facility] | + + + | Organization | [facility] | + + + | Address | Unknown | + + + | Phone | Unavailable | + + + Support + + + + + | Name | Relationship | Address | Phone | + + + + + | Kole Hartley | [place]AMONT | [address] | | | | | [place], [place] | | | | | [address] | | + + + + + | Cami Sawyer | ECON | Unknown | | + + + + + Care Team Providers + +------+ + | Care Check Services Clerk Name | Role | Phone | [...] RIGHT POPLITEAL | | 2011 | | [facility] | MD [address] | ANTEROTIBIAL | | | | Admitting Desk | [address] | EMBOLECTOMY | | | | Located on the | [place], [place] | | | | | floor [address] | [address] | | | | | [address] | [phone] | | | | | [place], [place] | | | | | | [phone] | | | +--------+---------+ + + + [...] [facility] 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 At arrival to [facility] it was learned that she did NOT indeed have ischemic colitis. 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 [...] flagyl - which was continued throughout the [facility]. 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 Go to the hospital on Tuesday [...] call your GI doctor in [facility] to arrange for your second [...] whether or not the INR is truly risk control field representative of anticoagulation. In patients with [...] on Tuesday. KIRIT RUST MD [facility] DEPARTMENT: [id number]- [facility] Faculty PPV Place of Service:- Inpatient Date of Service: 04/01/2012 CSN: [id number] Suggested Modifier: GC Resident Involved: Yes Suggested CPT: 79877- Dishcarge < 30 min Electronically signed by [...] questions. Debi Oconnor MD GI/Hepatology Fellow Pager: [phone] INTERVAL HISTORY: MRI abdomen shows no abscess; [...] risk of emboli, I called Dr. Rodriges (computer education professor for her PCP) to coordinate f/u of [...] additions above. KIRIT RUST MD [facility] DEPARTMENT: [id number]- [facility] Faculty PPV Place of Service:- Inpatient Date of Service: 03/31/2012 CSN: [id number] Suggested Modifier: GC Resident Involved: Yes Suggested CPT: 93740- Subsequent, Detailed/high complex, 35 min Davonte De [...] state: J Gastroenterol. 2004 Oct;39(10):948-54. PubMed PMID: [id number]. Consulted Heme for further studies on platelet [...] no insurance. Wanting to go home for [place]. Nurse repor ts that she has admitted [...] notes for assessment and pl an. Nuñez Copake, Sub-Towel Stretcher Pgr: [phone] Ajay De La Rosa MD - 03/30/2012 11:39 PM [facility] Internal Medicine Attending Interval [...] bridge after d/c until coumading therapeutic with clinical care manager through medication assistance program Hypoalbuminemia [...] additions above. KIRIT MD YOCASTA [facility] DEPARTMENT: [phone]- [facility] Faculty PPV Place of Service:- Inpatient Date of Service: 03/30/2012 CSN: [id number] Suggested Modifier: GC Resident Involved: Yes Suggested CPT: 98030- Subsequent, Detailed/high complex, 35 min Debi Yepez [...] follow closely Shaun SAEED GI Fellow Pg [phone] signed by Debi Oconnor MD at 03/30/2012 5:32 PM Jacoby Ko MD - 03/30/2012 10:25 AM PSTFormatting of this note might be different from the origi nal. [facility] DEPARTMENT OF SURGERY Daily Progress Note PROGRESS NOTE: Attending Physician: Xin Rust MD 03/31/2012 Subjective/Overnight Events: - latest CT shows resolution of abscess - no GI bleeding - no rectal/anal pain - tolerating reg diet MEDICATIONS: Reviewed in [facility] VITAL SIGNS: Refer to [facility] Intake/Output Summary (Last 24 hours) at 03/31/12 [...] concerns. Jacoby Tovar MD Surgery, R2 Diagnoses: [id number] Crohn disease This assessment and plan was [...] state: J Gastroenterol. 2004 Jan;39(10):948-54. PubMed PMID: [id number]. Consulted Heme for further studies on platelet [...] this note might be different from the [facility]. Transfer Accept Note Patient: Mackenzie Hartley Attending: [...] Nathan Weeks MD Internal Medicine PGY1 Pager [phone] Cecilia Baker MD - 03/29/2012 6:37 PM [...] team. Debi Oconnor MD GI Fellow Pager [phone] signed by Debi Oconnor MD at 03/29/2012 [...] planning) Debi Oconnor MD Fellow, Gastroenterology pager: [phone] signed by Debi Oconnor MD at 03/29/2012 [...] on 6 LPM There were no complications. aRphael Bashir MD, PhD Fellow Pulmonary and Critical Care Medicine I was present for the critical portions of the procedure as described in the note for this encounter. OSBALDO GARCIA MD [facility] [address] [place] [address] Andrew Shah MD - 10:41 AM PST [facility] DEPARTMENT OF SURGERY Daily Progress Note PROGRESS NOTE: Attending Physician: Osbaldo Garcia MD 03/29/2012 Subjective/Overnight Events: - bowel prep initiated - Hct stable - no hematochezia or hemetemesis - MEDICATIONS: Reviewed in [facility] VITAL SIGNS: Refer to [facility] Intake/Output Summary (Last 24 hours) at 03/29/12 [...] GI Jacoby Tovar MD Surgery, R2 Diagnoses: [id number] Crohn disease This assessment and plan was [...] myself provided conscious sedation. OSBALDO GARCIA MD [facility] [address] [place] [address] I spent 35 min in critical care (not including procedures) [facility] DEPARTMENT: MICU, [facility]- [phone] Place of Service: - Date of Service: 03/29/2012 CSN: [id number] Modifiers:GC Resident Involved: yes Suggested CPT: 84153 Critical Care, Initial 30-74 minutes Carlton Godwin [...] drop in her hct. MICU Course: Mrs. Hatrley was brought to the MICU over a [...] day of transfer to MICU (1 05/29/11), [facility] informed us that according to [...] 0659 03/29/12 07 - 03/30/12 0659 Shift 6305-0541 4063-2240 1379-0768 Daily Total 4467-6857 0833-3949 5029-3942 Daily Total I N T A K E P.O. 1750 2525 4275 I.V. 934 5542 085 6375 Shift Total 934 3740 3450 8124 O U T P U T Urine 1075 2950 1875 5900 Urine 1075 2950 1875 5900 Other 575 765 702 9512 Measured Stool Output 350 425 775 Stool/Urine Mix 575 575 Shift Total 1650 3300 2300 7250 NET -825 290 9387 874 Intake/Output Summary (since admission) at 03/12/12 1910 Last data filed at 03/29/12 0547 Gross for the last 17 days Intake 30765 ml Output 51845 ml Net since Admission -26198 ml Physical Exam: General Appearance: middle aged [...] Carlton Betancourt DO PGY-1 Internal Medicine Pager [phone] Debi Yepez MD - 03/11 4:31 PM [...] questions. Debi Oconnor MD GI/Hepatology Fellow Pager: [phone] INTERVAL HISTORY: Episode of melena last night then bright red blood per rectum this morning Hemodynamically stable but decrease in hct from 30 to 24 Transferred to [facility] INPATIENT MEDICATIONS acetaminophen (aka TYLENOL) tablet 650 [...] patient in the past. OSBALDO GARCIA MD [facility] [address] [address] I spent 35 min in critical care (not including procedures) EPIC DEPARTMENT: [facility]- [id number] Place of Service: Date of Service: 03/28/2012 CSN: [id number] Modifiers:GC Resident Involved: yes Suggested CPT: 11181 Critical Care, Initial 30-74 minutes Carlton Godwin [...] 0659 03/28/12 07 - 03/29/12 0659 Shift 0198-3925 1273-0258 4357-0211 Daily Total 9337-0602 0930-3951 0697-7387 Daily Total I N T A K E P.O. 240 300 540 I.V. 404 404 934 934 Blood 1300 1300 Shift Total 428 836 1321 2244 934 934 O U T P [...] Gross for the last 16 days Intake 68204 ml Output 38156 ml Net since Admission -47991 ml Physical Exam: General Appearance: tearful middle [...] Carlton Betancourt DO PGY-1 Internal Medicine Pager [phone] Andrew Shah MD - 6:52 AM PST [...] Sukumar Zuniga DO Internal Medicine PGY-2 Pg [phone] Davonte De La Rosa MD - 03/27/2012 [...] additions above. KIRITYann RUST MD [facility] DEPARTMENT: [id number]- [facility] Faculty PPV Place of Service:- Inpatient Date of Service: 03/27/2012 CSN: [id number] Suggested Modifier: Resident Involved: Yes Suggested CPT: 81634- Subsequent, Detailed/high complex, 35 min Marely Mccann [...] was discussed and formulated with gastroenterology at [facility], Dr. Hennessy. Please call with any questions. Debi Oconnor MD GI/Hepatology Fellow Pager: [phone] INTERVAL HISTORY: Imaging reviewed with radiology; too [...] Dung Victor - 2 11:30 AM PST INFORMATION TECHNOLOGY SECURITY MANAGER NOTE: Visited with Patient. 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 Telephone Supervisor team will follow as needed. Chaplain Dung Riley M.Div., [facility] [phone] Pager #[phone]; #[phone] Xin De La Rosa MD - 7:31 [...] J Gastroenterol. 2004 Jan;39(10):948-54. PubMed PMID: [id number]. Consulted Heme for further studies on platelet [...] an. ---- Joaquin Rivera, MS4 Pager # [phone] signed by Xin Rust MD at 03/27/2012 10:49 PM Xin eBal MD - 03/26/2012 9:28 PM PST3 Internal [...] additions above. KIRIT RUST MD [facility] DEPARTMENT: [id number]- [facility] Faculty PPV Place of Service:- Inpatient Date of Service: 03/26/2012 CSN: [id number] Suggested Modifier: GC Resident Involved: Yes Suggested CPT: 80131- Subsequent, Detailed/high complex, 35 min aphael Norman [...] kg/(m^2). 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 Raphael Norman MD Internal Medicine, PGY-2 [phone] Xin De La Rosa MD - 03/25/2012 [...] - not larger Resident spoke with resident assistant cna who spoke with staff - they did [...] taking more PO if still low ask local superintendent to see Hypophosphatemia (03/14/2012) Assessment: rechecked and [...] additions above. KIRIT MD YOCASTA [facility] DEPARTMENT: [id number]- [facility] Faculty PPV Place of Service:- Inpatient Date of Service: 03/25/2012 CSN: [id number] Suggested Modifier: Resident Involved: Yes Suggested CPT: 31370- Subsequent, Detailed/high complex, 35 min oaquin Rivera [...] J Gastroenterol. 2004 Jan;39(10):948- 54. PubMed PMID: [id number]. Consulted [facility] for further studies on platelet inhibitor [...] an. ---- Joaquin Rivera, MS4 Pager # [phone] Ajay De La Rosa MD - 03/24/2012 [...] drainage of abscess and coordination of care [facility] radiology reviewing perirectal abscess imaging, options for intervention and need for rep eat imagin, also with GI on plan. I personally interviewed the patient, performed the gunter elements of the physical examinatio n, and personally formulated the assessment and plan with the resident. I agree with the MS4 s documentation and have noted any additions above. KIRIT MD YOCASTA [facility] DEPARTMENT: [phone]- [facility] Faculty PPV Place of Service:- Inpatient Date of Service: 03/24/2012 CSN: [id number] Suggested Modifier: Resident Involved: Yes Suggested CPT: 89768- Subsequent, Detailed/high complex, 35 min Davonte De [...] J Gastroenterol. 2004 Jan;39(10):948- 54. PubMed PMID: [id number]. Consulted Heme for further studies on platelet [...] an. ---- Joaquin Nicole, MS4 Pager # [phone] Ajay De La Rosa MD - 03/23/2012 [...] additions above. KIRIT MD YOCASTA [facility] DEPARTMENT: [id number]- [facility] Faculty PPV Place of Service:- Inpatient Date of Service: 03/23/2012 CSN: [id number] Suggested Modifier: GC Resident Involved: Yes Suggested CPT: 02116- Subsequent, Detailed/high complex, 35 min Davonte De [...] to be done today JERI DIAZ MD [facility] [address] [place] [address] Xin De La Rosa MD - 03/23/2012 [...] state: J Gastroenterol. 2004 Jan;39(10):948-54. PubMed PMID: [id number]. Consulted Heme for further studies on platelet [...] an. ---- Joaquin Rivera, VIVIANA Pager # [phone] Ajay De La Rosa MD - 03/22/2012 [...] additions above. KIRIT MD YOCASTA [facility] DEPARTMENT: [id number]- [facility] Faculty PPV Place of Service:- Inpatient Date of Service: 03/22/2012 CSN: [id number] Suggested Modifier: Resident Involved: Yes Suggested CPT: 88065- Subsequent, Detailed/high complex, 35 min ox, Jeri [...] carotid duplex ordered today JERI DIAZ MD [facility] [address] [place] [address] Xin De La Rosa MD - 03/22/2012 [...] PTT in mixing 1:1 Neg cardiolipin, neg ucfg-D-tjisspujozdj Legionella Agg Urine pending Cultures: BLOOD CULTURE [...] barber: J Gastroenterol. 2004 Jan;39(10):948-54. PubMed PMID: [id number]. - Consult Heme for further studies on [...] an. ---- Joaquin Rivera, MS4 Pager # [phone] Ajay De La Rosa MD - 03/21/2012 [...] BP 142/76 | Pulse 106[sinus tach per telecom manager[ | Temp 37.7 C (99.9 F) [...] coordination of care with pharmD. [facility] DEPARTMENT: [id number]- [facility] Faculty PPV Place of Service:- Inpatient Date of Service: 03/21/2012 CSN: [id number] Suggested Modifier: AKHIL Resident Involved: Yes Suggested CPT: 70828- Subsequent, Detailed/high complex, 35 min Jennifer Tolentino [...] y.o. Female with multiple complex medical problems; [facility] Vascular Surge ry consulted due [...] as new baseline Ok to discharge per [facility] Vascular Surgeons once ambulating and medical issues are stable. Will continue to follow while in patient. [facility] Vascular Surgery Clinic, [facility] [address], phone number [phone] Please schedule followup appointment within 2-3 weeks of surgery for wound check. Dr. Sukumar Salgado, [facility] Vascular Surgery Attending. MERT OLIVA [facility] VASCULAR SURGERY [facility] [place] [address] hamMoses MD - 03/21/2012 6:55 AM PSTAgree [...] w ill need to establish care with scheduling agent so that further treatment options can be [...] assessment and plan. Moses Anthony MD Neurology Towel Stretcher Pager [phone] oaquin Rivera - 02/2012 6:55 AM PST [...] an. ---- Joaquin Rivera, MS4 Pager # [phone] Xin De La Rosa M D - 03/20/2012 11:09 PM [facility]3 Internal Medicine Attending Interval [...] additions above. KIRIT MD YOCASTA [facility] DEPARTMENT: [id number]- [facility] Faculty PPV Place of Service:- Inpatient Date of Service: 03/20/2012 CSN: [id number] Suggested Modifier: Resident Involved: Yes Suggested CPT: 79453- Subsequent, Detailed/high complex, 35 min ennifer Staples, [facility] - 03/20/2012 3:36 PM PST [...] y.o. Female with multiple complex medical problems; [facility] Vascular Surge ry consulted due [...] chair as tolerated, RLE WBAT -Please obtain [facility] Arterial duplex ultrasound/DELORIS of both legs prior to discharge as n ew baselineObtain ABIs with waveforms To establish new blood-flow baseline Ok to discharge per [facility] Vascular Surgeons once ambulating and medical issues are stable. Will continue to follow while in patient. [facility] Vascular Surgery Clinic, [address], phone number [phone] Please schedule followup appointment within 2-3 weeks of surgery for wound check. Dr. Sukumar Salgado, [facility] Vascular Surgery Attending. MERT OLIVA [facility] VASCULAR SURGERY [address] [place] [address] aphael Norman - 7:58 AM PSTI agree [...] plan. Raphael Norman MD Internal Medicine, PGY-2 05732 rinJoaquin dowd - 2011 7:58 AM PST [...] an. ---- Joaquin Rivera, MS4 Pager # [phone] Juma Pimentel MD - 12/2011 3:35 PM [...] record is Dr. Salgado. JUMA CARRINGTON MD [facility] [address] [facility] [address] [place] [address] Chary Moore M D - 03/19/2012 9:14 [...] note from 03/14 for details. Therefore the lkhz-qlbx-biwqf plan givens s been to allow her [...] plan. Lovenox bridge to be covered by [facility]. 9) Occlusive thrombus 10) Hypoalbuminemia 11) Hypophosphatemia 12) TIA (transient ischemic attack) - with PFO 13) PFO (patent foramen ovale) - plan is for lifelong coumadin. No additional benefit from device closure per CLOSURE I trial. Chary Doherty MD Chief Resident, Internal Medicine Pager: [phone] [facility] DEPARTMENT: Hosp- [id number] Place of Service: - Date of Service: 03/19/2012 CSN: [id number] Modifiers:GC Resident Involved: Yes Suggested CPT: 54823 Subsequent Visit Detailed/High complexity 35 min I [...] will need to establish c are with scheduling agent so that further treatment options can be [...] assessment and plan. Moses Anthony MD Neurology Towel Stretcher Pager [phone] tJose Antonio prado MD - 03/18/2012 1:01 [...] outpt GI, plans to establish care in [place], perhaps Dr. Byrd. Transitioning to PO meds, [...] Doherty MD Chief Resident, Internal Medicine Pager: [phone] [facility] DEPARTMENT: Hosp- [phone] Place of Service: - Date of Service: 03/18/2012 CSN: [id number] Modifiers: Resident Involved: Yes Suggested CPT: 41629 Subsequent Visit Exp Prob Foc/Mod Complexity 25 [...] Date 03/18/12 0700 - 03/19/12 0659 Shift 7506-6868 5014-3400 6504-2159 24 Hour Total I N T A K E P.O. 620 620 I.V. 20 20 40 Shift Total 640 20 660 O U T P U T Urine 675 100 775 Other 400 400 Shift Total 455 853 5291 Weight (kg) 74.1 74.1 74.1 74.1 General: [...] refusing). Will need to establish care with scheduling agent so that further treatment options can be [...] in MS4 note. Moses Anthony MD Neurology Towel Stretcher Pager [phone] signed by Moses Asher MD at 03/18/2012 [...] an. ---- Nuñez Nicole, MS4 Pager # [phone] Chary Moore MD - 03/17/2012 8:39 PM [...] refusing). Will need to establish care with scheduling agent so this can be discussed as outpt [...] Doherty MD Chief Resident, Internal Medicine Pager: [phone] [facility] DEPARTMENT: Hosp- [phone] Place of Service: - Date of Service: 03/17/2012 CSN: [id number] Modifiers: Resident Involved: Yes Suggested CPT: 77141 Subsequent Visit Detailed/High complexity 35 min I [...] at end of case. MIRELA SALGADO MD [facility] [address] [address] [place] [address] ham, Gloria Lawson MD - [...] until she's therapeutic with her coumadin and [facility] has agreed to provide discounted [...] y Gloria Anthony MD Neurology PGY1 Pager: [phone] oaquin Rivera - 10/2011 7:19 AM PST [...] an. ---- Joaquin Rivera, MS4 Pager # [phone] Chary Moore MD - 03/16/2012 12:56 PM [...] is reasonable to consider down the road. hCary Doherty MD Chief Resident, Internal Medicine Pager: [phone] [facility] DEPARTMENT: Hosp- [phone] Place of Service: - Date of Service: 03/16/2012 CSN: [id number] Modifiers: Resident Involved: Yes Suggested CPT: 16024 Subsequent Visit Exp Prob Foc/Mod Complexity 25 min and 54529 Subseque nt Visit Detailed/High complexity 35 min [...] DNR/DNI Gloria Anthony MD Neurology PGY-1 Pager [phone] The patient was seen and discussed with [...] Doherty MD Chief Resident, Internal Medicine Pager: [phone] [facility] DEPARTMENT: Hosp- [phone] Place of Service: - Date of Service: 03/15/2012 CSN: [id number] Modifiers:GC Resident Involved: Yes Suggested CPT: 46535 Subsequent Visit Detailed/High complexity 35 min Dariela [...] plan. Dariela Santoyo MD Internal Medicine PGY-3 [phone] Daryl Singleton MD - 08/2011 7:18 PM PSTHematology Attending Consult Note: I saw and examined Ms. Hartley with the Hematology Fellow, Dr. Anthony Camejo and [facility] [place] the 5A Medicine unit. I participated in the gunter components of today's [facility] pital visit including review of the [...] Arteaga MD, PhD Hematology Oncology [facility] DEPARTMENT: [id number]- HEM FACULTY [facility] Place of Service: - Inpatient Date of Service: 03/15/2012 Modifiers: GC - Resident Involved Suggested CPT: 51808 - Subsequent, Detailed/High complex 35 min Anthony [...] anticoagulation clinic f/u closely; our clinic at [facility] cannot provide any suppli es [...] as above. MD Hematology/Oncology Fellow Pager # [phone] signed by Daryl Arteaga MD at 03/15/2012 11:23 PM PSTHoMorgan yanes M - 03/15/2012 4:31 PM PSTTransthoracic echocardiogram completed. Final report to millicent ruiz iBgg Robles M D - 03/15/2012 2:34 PM [...] with any questions. Bigg Margaret, R1 Pager: [phone] INTERVAL HISTORY: - NAEO - VSS, AF [...] thrombus - repeat duplexes, given symptoms improving Snadoval Galvez MD, R-4 Addendum: CT w runoff [...] wishes to pro ceed. Mirela Samano M.D. [facility] Vascular Surgery [address] [facility], [address] [address] Email: [email or web address], Sandoval Barrett MD - 03/15/2012 [...] off to day. Jacoby Tovar MD Surgery [id number] signed by Sandoval Tovar MD at 03/15/2012 [...] monitor Gloria Anthony MD Neurology PGY1 Pager [phone] Daryl Singleton MD - 07/2011 4:57 PM PSTHematology Attending Consult Note: I saw and examined Ms. Hartley with the Hematology Fellow, Dr. Anthony Camejo in the [address] [place] [address] unit. I participated in the gunter components [...] Arteaga MD, PhD Hematology Oncology [facility] DEPARTMENT: [id number]- HEM FACULTY [facility] Place of Service: - Inpatient Date of Service: 03/14/2012 Modifiers: GC - Resident Involved Suggested CPT: 15316 - Subsequent, Detailed/High complex 35 min Anthony [...] as above. MD Hematology/Oncology Fellow Pager # [phone] signed by Daryl Arteaga MD at 03/14/2012 10:20 PM Gopal Staley MD - 03/14/2012 1:55 PM PSTFormatting of this note might be different from the origin al. Gastroenterology Follow-Up Note 03/14/2012 CC/ID: Abdominal pain, N/V/D, elevated WBC and lactate with hypotension IMPRESSION/PLAN: Mackenzie Harltey is a 56 year old female with [...] really for treatment Recommendations communicated with [employer] intern retail. We will continue to follow. This plan was discussed and formulated with gastroenterology at [facility], Dr. Casiano. Please call with any questions. Bigg Robles, R1 Pager: [phone] Attending Attestation: I personally interviewed the patient, [...] She may follow-up wit h her local scheduling agent or may follow up with me at [facility] if she wishes to consider di fferent evaluation or treatment. Gopal Casiano MD Registered Representativeauxiliary engineer Department of Gastroenterology INTERVAL HISTORY: - [...] IMAGING Reviewed outside imaging with radiologist at [facility] and CT abd and pelvis [...] Becca Moncada MD General Surgery, R2 Pager: [phone] [facility] Staff I saw and evaluated the patient. I agree with the findings and the plan of care as jannie hair in the resident s note. Left foot warm and well perfused. Patient pain-free. Will repe at CTA to see if there has been any thrombus progression. No urgent need for surgery on left leg at this point. Mirela Samano M.D. [facility] Vascular Surgery [address] [place] [address], [address] [address] Email: [email or web address], Irene Vega MD - 03/14/2012 [...] at OSH. 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 She also had leukocytosis to 45 with a left shift, anemia, and thrombocytosis (platelets to 759). Her abdominal exam was not acute and she remained hemodynamically stable. Transferre d to [facility] for possible thrombectomy, initiated heparin [...] were obscured by overlying bowel gas. The kuh-sj-mvcton left external iliac arteries appear patent with [...] transient arterial occlusion. Reported CT findings at [facility] are also concerning for diffuse intra-abdominal arterial [...] Author: Becca Moncada MD Attending Physician: Do Snatamaria MD Date: 03/13/2012 Identification: Mackenzie Hartley is [...] Recorded LastCBG Intervention: Notified (Comment);Medication given (03/12/12 4196) CBC with diff last 72 hours (or [...] Becca Moncada MD General Surgery, R2 Pager: [phone] Vascular Staff I saw and evaluated the [...] at a later time. Mirela Samano M.D. [facility] Vascular Surgery [address] [facility], [address] [place] [address] Email: [email or web address] Richie Goodman MD - 06/2011 11:15 AM PSTI was present and rounded with the ENGINEERING VICE PRESIDENT today. I interviewed and examined the patient. I reviewed the history, as documented today. I agree with the ENGINEERING VICE PRESIDENT's assessmen t and plan. Pt is stable [...] visceral and aortic thrombus transfer red from [place] last night with concerns for ischemic bowel. 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 No evidence of bowel ischemia, bowel thicken ing likely Crohn's flare. 1. Crohn's flare: GI consult. Consider [facility] Multivessel occlusions/thrombii: vascular [...] Her abdominal exam does not reveal peritonitis. [facility] ular surgery recommended a heparin drip given her subtherapeutic INR. Hematology will be con sulted for her leukocytosis and declining platelet count in the setting of heparin therapy. Gastroenterology is making recommendations regarding acute management of her Crohn's disease . She will no longer require ICU care and she will transfer to the general medicine service. Jf Wiseman MD FACS foot cutter Division of Trauma, Critical Care, and Acute Care Surgery [id number] documented in this e ncounter Plan of [...] | + + + + + | [facility] | [address] | [place] [address] | | | JANELL SHARP | BERTRAM [...] [facility] | [address] | [place] [address] | | | SERVICES, CORE | BERTRAM [...] | + + + + + | [facility] | [address] [facility] | [place] [address] | | | JANELL SHARP | BERTRAM [...] LABORATORY | [address] | [place] [address] | | | SERVICES, CORE | PARK [...] | + + + + + | [facility] | [address] | [place] [address] | | | SERVICES, CORE | PARK [...] [facility] | [address] | [place] [address] | | | SERVICES, JANELL | BERTRAM [...] [facility] | [address] | [place] [address] | | | JANELL SHARP | BERTRAM [...] [facility] | [address] | [place] [address] | | | SERVICES, JANELL | BERTRAM [...] [facility] | [address] | [place] [address] | | | SERVICES, CORE | PARK [...] [facility] | [address] | [place] [address] | | | SERVICES, CORE | BERTRAM [...] [facility] | [address] | [place] [address] | | | SERVICES, CORE | PARK [...] | + + + + + | [facility] | [address] | [place] [address] | | | SERVICES, CORE | BERTRAM [...] | + + + + + | [facility] | [address] | [place] [address] | | | SERVICES, CORE | PARK [...] + | [facility] | [address] | [place] [address] | | | [place] | | | [...] + | [facility] | [address] | [place] [address] | | | [place] | | | [...] + | [facility] | [address] | [place] [address] | | | [place] | | | | + + + [...] | + + + + + | [facility] | [address] | [place] [address] | | | SERVICES, CORE | BERTRAM [...] | + + + + + | [facility] | [address] | [place] [address] | | | SERVICES, CORE | BERTRAM [...] | + + + + + | [facility] | [address] [facility] | [place] [address] | | | SERVICES, CORE | BERTRAM [...] | + + + + + | [facility] | [address] | [place] [address] | | | ARON, JANELL | BERTRAM [...] | + + + + + | [facility] | [address] | [place] [address] | | | PATHOLOGY | [address] [...] [facility] | [address] | [place] [address] | | | SERVICES, CORE | PARK [...] | + + + + + | [facility] | [address] [facility] | [place] [address] | | | ARON, [facility] | [address] | [...] [facility] | [address] | [place], [place] | | | [facility] CARE | [address] | [address] | | | TESTS | | | [...] | + + + + + | [facility] | [address] | [place] [address] | | | SERVICES, CORE | BERTRAM [...] | + + + + + | [facility] | [address] | [place] [address] | | | ARON, CORE | BERTRAM [...] | + + + + + | [facility] | [address] | [place] [address] | | | SERVICES, CORE | BERTRAM [...] (H) | 60 - 99 mg/dL | [facility] - | | | GLUCOSE, [...] [facility] | [address] | [place], [place] | | | [facility] [place] OF CARE | [address] | [address] | | | TESTS | | | [...] | + + + + + | [facility] | [address] | [place] [address] | | | SERVICES, CORE | BERTRAM [...] | + + + + + | [facility] | [address] [facility] | [place] [address] | | | SERVICES, CORE | BERTRAM [...] [facility] | [address] | [place] [address] | | | SERVICES, CORE | PARK [...] | + + + + + | [facility] | [address] | [place] [address] | | | SERVICES, CORE | BERTRAM [...] + + + + | PRODUCT | [id number] | | [facility] | | | UNIT [...] + + + + | BLOOD | [id number] | | [facility] | | | PRODUCT [...] [facility] | [address] | [place] [address] | | | PATHOLOGY | [address] [...] + + + + | PRODUCT | [id number] | | [facility] | | | UNIT [...] + + + + | BLOOD | 12003 | | [facility] | | | PRODUCT [...] + + + + | [facility] | [address] | [place] [address] | | | PATHOLOGY | [address] [...] [facility] | [address] | [place], [place] | | | PEPE [facility]ORE OF CARE | [address] | [address] | | | TESTS | | | [...] | + + + + + | [facility] | [address] [facility] | [place] [address] | | | JANELL SHARP | BERTRAM [...] view image for the detailed interpretation from Trapster results. | CARDIOLOGY | + + + + + + + + | Performing | Address | City/State/Zipcode | Phone Number | | Organization | | | | + + + + + | [facility] | [address] | [place], [place] | | | CARDIOLOGY | [address] | [address] | | + + + + + [...] [facility] | [address] | [place] [address] | | | SERVICES, CORE | BERTRAM [...] + + + + | PRODUCT | [id number] | | [facility] | | | UNIT [...] + + + + | BLOOD | 61235 | | [facility] | | | PRODUCT [...] + + + + | [facility] | [address] | [place] [address] | | | PATHOLOGY | [address] [...] + + + + | PRODUCT | [id number] | | [facility] | | | UNIT [...] + + + + | BLOOD | 38801 | | [facility] | | | PRODUCT [...] | + + + + + | [facility] DE[facility] | [address] | [place] [address] | | | PATHOLOGY | [address] [...] [facility] | [address] | [place] [address] | | | SERVICES, CORE | PARK [...] [facility] | [address] | [place] [address] | | | JANELL SHARP | BERTRAM [...] | + + + + + | [facility] | [address] | [place] [address] | | | JANELL SHARP | BERTRAM [...] [facility] | [address] | [place] [address] | | | SERVICES, CORE | PARK [...] [facility] | [address] | [place] [address] | | | SERVICES, | [address] [...] [facility] | [address] | [place] [address] | | | SERVICES, | [address] [...] + + + + | PRODUCT | [id number] | | [facility] | | | UNIT [...] + + + + | BLOOD | 39081 | | [facility] | | | PRODUCT [...] + + + + | [facility] | [address] | [place] [address] | | | PATHOLOGY | [address] [...] + + + + | PRODUCT | [id number] | | [facility] | | | UNIT [...] + + + + | BLOOD | 56240 | | [facility] | | | PRODUCT [...] DEPARTMENT OF | [address] | [place] [address] | | | PATHOLOGY | [address] [...] [facility] | [address] | [place] [address] | | | SERVICES, CORE | PARK [...] | + + + + + | [facility] | [address] | [place] [address] | | | SERVICES, CORE | PARK [...] | + + + + + | [facility] | [address] | [place] [address] | | | SERVICES, CORE | PARK [...] | + + + + + | [facility] | [address] | [place] [address] | | | SERVICES, CORE | PARK [...] [facility] | [address] | [place] [address] | | | JANELL SHARP | BERTRAM [...] [facility] | [address] | [place] [address] | | | SERVICES, CORE | PARK [...] [facility] | [address] | [place] [address] | | | SERVICES, CORE | PARK [...] [facility] | [address] | [place] [address] | | | SERVICES, CORE | PARK [...] 82 | 60 - 99 mg/dL | [facility] | | | PLASMA | | | [...] [facility] | [address] | [place] [address] | | | JANELL SHARP | BERTRAM [...] [facility] | [address] | [place] [address] | | | SERVICES, CORE | PARK [...] [facility] | [address] | [place] [id number] | | | SERVICES, CORE | BERTRAM [...] [facility] | [address] | [place] [address] | | | SERVICES, CORE | PARK [...] [facility] | [address] | [place] [address] | | | SERVICES, CORE | PARK [...] [facility] | [address] | [place] [address] | | | SERVICES, CORE | PARK [...] | + + + + + | [facility] | [address] | [place] [address] | | | JANELL SHARP | BERTRAM [...] oral, | | | | | | [id number] hrs | | | | | | [...] | | + +---------+ + + | [facility] DEPARTMENT OF | | | [...] [facility] | [address] | [place] [address] | | | SERVICES, CORE | PARK [...] | + + + + + | [facility] | [address] | [place] [address] | | | SERVICES, CORE | PARK [...] | + + + + + | [facility] | [address] | [place] [address] | | | SERVICES, CORE | BERTRAM [...] | + + + + + | [facility] | [address] | [place] [address] | | | SERVICES, CORE | BERTRAM [...] [facility] | [address] | [place] [address] | | | SERVICES, CORE | PARK [...] | | | | Final | | [place] | | | | CULTURE RESULT:< 10,000 [...] + | [facility] | [address] | [place] [address] | | | [facility] | | | | + + + + + TLEMA FARAH ONLY (03/24/2012 12:39 AM PST) + [...] [facility] | [address] | [place] [address] | | | SERVICES, CORE | PARK [...] [facility] | [address] | [place] [address] | | | SERVICES, JANELL | BERTRAM [...] + + | [facility] | [address] [facility] | [place] [address] | | | JANELL SHARP | BERTRAM [...] | + + + + + | [facility] | [address] | [place] [address] | | | SERVICES, CORE | [address] | | | + + + + + 12 LEAD ECG (03/23/2012 4:00 PM PST) + + + + + + | Component | Value | Ref Range | Performed | Pathologist | | | | | At | Signature | + + + + + + | VENTRICULAR | 103 | BPM | [facility] DE[facility] | | | RATE | [...] view image for the detailed interpretation from Trapster results. | CARDIOLOGY | + + + + + + + + | Performing | Address | City/State/Zipcode | Phone Number | | Organization | | | | + + + + + | [facility] | [address] | [place], [place] | | | CARDIOLOGY | [address] | [address] | | + + + + + [...] [facility] | [address] | [place] [address] | | | SERVICES, CORE | PARK [...] [facility] | [address] | [place] [address] | | | SERVICES, CORE | BERTRAM [...] | + + + + + | [facility] | [address] | [place] [address] | | | SERVICES, CORE | PARK [...] | + + + + + | [facility] | [address] | [place] [address] | | | SERVICES, JANELL | BERTRAM [...] [facility] | | | | | | [facility] | | | | | | [place] [address] | | | | | | [phone]. | | | | | | Kaitlin [...] [facility] | [address] | [place], [place] | | | [facility] | | [address] | | + + + + + [...] | + + + + + | [facility] | [address] | [place] [address] | | | SERVICES, JANELL | BERTRAM [...] + + CULTURE, BLOOD BACTI & YEAST [facility] (03/22/2012 7:09 PM PST) + + [...] | + + + + + | [facility] | [address] | [place] [address] | | | SERVICES, CORE | BERTRAM [...] | + + + + + | [facility] | [address] | [place] [address] | | | SERVICES, CORE | [address] | | | + + + + + 12 LEAD ECG (03/22/2012 2:58 PM PST) + + + + + + | Component | Value | Ref Range | Performed | Pathologist | | | | | At | Signature | + + + + + + | VENTRICULAR | 87 | BPM | [facility] | | | RATE | | [...] | | | | | XIN GARZON ([id number]) | | | | | | on 03/22/2012 4:25:06 PM | | | | + + + + + + + + | Specimen | + + | | + + + + + | Narrative | Performed At | + + + | Please click | [facility] | | on view image for the detailed interpretation from Trapster results. | CARDIOLOGY | + + + + + + + + | Performing | Address | City/State/Zipcode | Phone Number | | Organization | | | | + + + + + | [facility] | [address] | [place], [place] | | | CARDIOLOGY | [address] | [address] | | + + + + + [...] [facility] | [address] | [place], [place] | | | [facility] | [facility] | [address] | | | TESTS | | | [...] [facility] | [address] | [place], [place] | | | [facility]SCAR POINT OF CARE | [facility] | [address] | | | TESTS | | | [...] | + + + + + | [facility] | [address] | [place] [address] | | | SERVICES, CORE | [address] [...] [facility] | [address] | [place] [address] | | | SERVICES, CORE | [address] [...] + + | [facility] | [address] [facility] | [place] [address] | | | SERVICES, CORE | [address] [...] [facility] | [address] | [place] [address] | | | SERVICES, CORE | [address] [...] | + + + + + | [facility] | [address] | [place] [address] | | | SERVICES, CORE | [address] [...] (H) | 60 - 99 mg/dL | [facility] - | | | GLUCOSE, [...] [facility] | [address] | [place], [place] | | | [facility] CARE | [address] | [address] | | | TESTS | | | [...] | + + + + + | [facility] | [address] | [place] [address] | | | ARON, JANELL | BERTRAM [...] (H) | 60 - 99 mg/dL | [facility] - | | | GLUCOSE, [...] [facility] | [address] | [place], [place] | | | OSCAR POINT OF CARE | [address] | [address] | | | TESTS | | | [...] view image for the detailed interpretation from Trapster results. | CARDIOLOGY | + + + + + + + + | Performing | Address | City/State/Zipcode | Phone Number | | Organization | | | | + + + + + | [facility] | [address] | [place], [place] | | | CARDIOLOGY | [address] | [address] | | + + + + + [...] [facility] | [address] | [place] | | | [place] [facility] [place] | [address] | [address] | | | TESTS | | | | + + + + + VASC LAB ANKLE BRACH INDICS W WAVEFORM BILAT (03/21/2012 8:17 AM PST) + + + + + + | Component | Value | Ref Range | Performed | Pathologist | | | | | At | Signature | + + + + + + | [facility] | ANKLE BRACHIAL INDEX | [...] | + + + + + | [facility] | [address] | [place] [address] | | | SERVICES, CORE | PARK [...] | + + + + + | [facility] | [address] | [place] [address] | | | SERVICES, CORE | [address] [...] | + + + + + | [facility] | [address] | [place] [address] | | | SERVICES, CORE | PARK [...] | + + + + + | [facility] | [address] | [place] [address] | | | SERVICES, CORE | B[address]TRAM [...] [facility] | [address] | [place] [id number] | | | JANELL SHARP | BERTRAM [...] GARCIA | | | | | | ([id number]) on 03/22/2012 | | | | | | 12:47:28 PM | | | | + + + + + + + + | Specimen | + + | | + + + + + | Narrative | Performed At | + + + | Please click | [facility] | | on view image for the detailed interpretation from Trapster results. | CARDIOLOGY | + + + + + + + + | Performing | Address | City/State/Zipcode | Phone Number | | Organization | | | | + + + + + | [facility] | [address] | [place], [place] | | | CARDIOLOGY | [address] | [address] | | + + + + + [...] | + + + + + | [facility] | [address] | [place] [address] | | | SERVICES, CORE | BERTRAM [...] LABORATORY | [address] | [place] [address] | | | JANELL SHARP | BERTRAM [...] 98 | 60 - 99 mg/dL | [facility] - | | | GLUCOSE, [...] [facility] | [address] | [place], [place] | | | [facility] | [address] | [address] | | | TESTS | | | [...] view image for the detailed interpretation from Trapster results. | CARDIOLOGY | + + + + + + + + | Performing | Address | City/State/Zipcode | Phone Number | | Organization | | | | + + + + + | [facility] | [address] | [place], [place] | | | CARDIOLOGY | [address] | [address] | | + + + + + [...] [facility] | [address] | [place], [place] | | | [facility] [place] | [facility] | [address] | | | TESTS | | | [...] [facility] | [address] | [place], [place] | | | [facility] CARE | [address] | [address] | | | TESTS | | | [...] [facility] | [address] | [place] [address] | | | SERVICES, JANELL | B[address]TRAM [...] | + + + + + | [facility] | [address] [facility] | [place] [address] | | | ARON, JANELL | BERTRAM [...] | + + + + + | [facility] | [address] | [place] [address] | | | JANELL SHARP | BERTRAM [...] | + + + + + | [facility] | [address] | [place] [address] | | | SERVICES, CORE | [address] [...] (H) | 60 - 99 mg/dL | [facility] - | | | GLUCOSE, [...] [facility] | [address] | [place], [place] | | | [facility] CARE | [address] | [address] | | | TESTS | | | [...] [facility] | [address] | [place], [place] | | | [place] [facility] [place] | [address] | [address] | | | TESTS | | | [...] | + + + + + | [facility] | [address] | [place] [address] | | | SERVICES, CORE | [address] [...] | + + + + + | [facility] | [address] | [place] [address] | | | JANELL SHARP | BERTRAM [...] [facility] | [address] | [place], [place] | | | [facility] | [address] | [address] | | | TESTS | | | [...] view image for the detailed interpretation from Trapster results. | CARDIOLOGY | + + + + + + + + | Performing | Address | City/State/Zipcode | Phone Number | | Organization | | | | + + + + + | [facility] | [address] | [place], [place] | | | CARDIOLOGY | [address] | [address] | | + + + + + [...] [facility] | [address] | [place], [place] | | | [facility] [place] | [address] | [address] | | | TESTS | | | [...] - [facility] | [address] | [place], [place] | | | OSCAR POINT OF CARE | [address] | [address] | | | TESTS | | | [...] [facility] | [address] | [place] [address] | | | SERVICES, CORE | BERTRAM [...] [facility] | [address] | [place] [address] | | | SERVICES, CORE | [address] [...] [facility] | [address] | [place] [address] | | | SERVICES, CORE | [address] [...] | + + + + + | [facility] | [address] [facility] | [place] [address] | | | SERVICES, JANELL | [address] [...] | | | | Final | | [place] | | | | CULTURE RESULT:No growth [...] + | [facility] - | [address] | [place] [address] | | | [place] | | | | + + + [...] | + + + + + | [facility] | [address] | [place] [address] | | | SERVICES, CORE | BERTRAM [...] [facility] | [address] | [place] [address] | | | SERVICES, CORE | PARK [...] [facility] | [address] | [place] [address] | | | JANELL SHARP | BERTRAM [...] [facility] | [address] | [place] [address] | | | SERVICES, CORE | PARK [...] + | [facility] | [address] | [place] [address] | | | SERVICES, CORE | PARK [...] - [facility] | [address] | [place], [place] | | | [facility] | [address] | [address] | | | TESTS | | | [...] | + + + + + | [facility] | [address] | [place] [address] | | | SERVICES, CORE | BERTRAM [...] [facility] | [address] | [place], [place] | | | [facility] | [address] | [address] | | | TESTS | | | [...] [facility] | [address] | [place] [address] | | | SERVICESJANELL | [address] [...] | + + + + + | [facility] | [address] | [place] [address] | | | SERVICES, CORE | BERTRAM [...] (H) | 60 - 99 mg/dL | [facility] - | | | GLUCOSE, | | [...] [facility] | [address] | [place], [place] | | | [facility] | [address] | [address] | | | TESTS | | | | + + + + + OPERATION RECORD (03/18/2012 11:22 AM PST) + + | Transcriptions | + + | Mirela Salgado MD - 03/18/2012 8:38 AM PST Date: 03/17/2012ttending | | Surgeon: Mirela Salgado M.D.Chief Design Branch(s): [facility] | | Bennett Galvez M.D.Preoperative Diagnosis(es):Embolus, [...] | tolerated the procedure well.MIRELA SALGADO, [facility] / [id number] / | | [id number] / [id number] / T: 03/17/2012 | |was no pulse. 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 | | | |[facility] / | |[id number] / [id number] / [id number] / | | | | | + + HEPARIN, EITHER STANDARD / LMW, BLOOD (03/18/2012 10:26 AM [facility]) + +-------+ + + + | [...] | + + + + + | [facility] | [address] | [place] [address] | | | ARON, CORE | BERTRAM [...] [facility] | [address] | [place] [address] | | | SERVICES, JANELL | BERTRAM [...] [facility] | [address] | [place] [address] | | | SERVICES, CORE | PARK [...] [facility] | [address] | [place] [address] | | | SERVICES, CORE | PARK [...] [facility] | [address] | [place] [address] | | | SERVICES, CORE | PARK [...] LABORATORY | [address] | [place] [address] | | | SERVICES, CORE | PARK [...] | + + + + + | [facility] | [address] | [place] [address] | | | SERVICES, CORE | BERTRAM [...] SANDERS | [address] | [place], [place] | | | OSCAR POINT OF CARE | [address] | [address] | | | TESTS | | | [...] MARQUAM | [address] | [place], [place] | | | [facility]SCAR POINT OF CARE | [address] | [address] | | | TESTS | | | [...] (H) | 60 - 99 mg/dL | [facility] - | | | GLUCOSE, | | [...] MARQUAM | [address] | [place], [place] | | | OSCAR POINT OF CARE | [address] | [address] | | | TESTS | | | [...] [facility] | [address] | [place] [address] | | | SERVICES, JANELL | BERTRAM [...] | + + + + + | [facility] | [address] [facility] | [place] [address] | | | SERVICES, CORE | PARK [...] | + + + + + | [facility] | [address] | [place] [address] | | | SERVICES, CORE | BERTRAM [...] [facility] | [address] | [place] [address] | | | ARON, JANELL | PARK [...] (H) | 60 - 99 mg/dL | [facility] - | | | GLUCOSE, [...] - MARILYN | [address] | [place], [place] | | | OSCAR POINT OF CARE | [address] | [address] | | | TESTS | | | [...] [facility] | [address] | [place] [address] | | | SERVICES, | [address] [...] [facility] | [address] | [place] [address] | | | SERVICES, | [address] [...] | + + + + + | [facility] | [address] | [place] [address] | | | JANELL SHARP | BERTRAM [...] (H) | 60 - 99 mg/dL | [facility] - | | | GLUCOSE, [...] + + + | [facility] | [address] | [place], [place] | | | [facility] | [address] | [address] | | | TESTS | | | [...] | | + +---------+ + + | [facility] DEPARTMENT OF | | | [...] MARILYN | [address] | [place], [place] | | | [facility] | [facility] | [address] | | | TESTS | | | [...] (H) | 60 - 99 mg/dL | [facility] - | | | GLUCOSE, [...] DAVIDAM | [address] | [place], [place] | | | OSCAR POINT OF CARE | [address] | [address] | | | TESTS | | | [...] | + + + + + | [facility] | [address] | [place] [address] | | | SERVICES, CORE | BERTRAM [...] + + | [facility] | [address] | [place], [place] | | | PEPE MOORE OF CARE | [address] | [address] | | | TESTS | | | [...] | + + + + + | [facility] | [address] [facility] | [place] [address] | | | SERVICES, CORE | PARK [...] [facility] | [address] | [place] [address] | | | SERVICES, CORE | PARK [...] [facility] | [address] | [place] [address] | | | SERVICESJANELL | [address] [...] | + + + + + | [facility] | [address] | [place] [address] | | | SERVICES, CORE | BERTRAM [...] SANDERS | [address] | [place], [place] | | | OSCAR POINT OF CARE | [address] | [address] | | | TESTS | | | [...] MARILYN | [address] | [place] | | | [facility] | [address] | [address] | | | TESTS | | | [...] | | + +---------+ + + | [facility] DEPARTMENT OF | | | [...] Kirstie | | | | | | [place] | | | | + + + + + + + + | Specimen | + + | | + + + +---------+ + + | Performing | Address | City/State/Zipcode | Phone Number | | Organization | | | | + +---------+ + + | [facility] DEPARTMENT OF | | | [...] MARQUAM | [address] | [place], [place] | | | PEPE MOORE OF CARE | [address] | [address] | | | TESTS | | | [...] DAVIDAM | [address] | [place], [place] | | | [facility] | [address] | [address] | | | TESTS | | | [...] | + + + + + | [facility] | [address] | [place] [address] | | | SERVICES, SPECIAL | PARK [...] + + | [facility] | [address] [facility] | [place] [address] | | | SERVICES, SPECIAL | BERTRAM [...] [facility] | [address] | [place] [address] | | | SERVICES, SPECIAL | PARK [...] [facility] | [address] | [place] [address] | | | SERVICES, SPECIAL | PARK [...] + + | [facility] | [address] [facility] | [place] [address] | | | ARON, JANELL | BERTRAM [...] | + + + + + | [facility] | [address] | [place] [address] | | | SERVICES, CORE | BERTRAM [...] [facility] | [address] | [place] [address] | | | SERVICES, CORE | PARK [...] | + + + + + | [facility] | [address] [facility] | [place] [address] | | | ARON, JANELL | BERTRAM [...] MARILYN | [address] | [place], [place] | | | [facility] | [address] | [address] | | | TESTS | | | [...] | + + + + + | [facility] | [address] | [place] [address] | | | SERVICES, CORE | BERTRAM [...] SANDERS | [address] | [place], [place] | | | [facility] [place] | [facility] | [address] | | | TESTS | | | [...] MARILYN | [address] | [place], [place] | | | OSCAR POINT OF CARE | [address] | [address] | | | TESTS | | | [...] Davina | | | | | | Evans | | | | + + + [...] MARQU[facility] | [address] | [place], [place] | | | PEPE MOORE OF CARE | [address] | [address] | | | TESTS | | | [...] + + + + | PRODUCT | [id number] | | [facility] | | | UNIT [...] + + + + | BLOOD | 527[address] | | [facility] | | | PRODUCT [...] + + + + | [facility] | [address] | [place] [address] | | | PATHOLOGY | [address] [...] + + + + | PRODUCT | [id number] | | [facility] | | | UNIT [...] + + + + | BLOOD | 668[address] | | [facility] | | | PRODUCT [...] DEPARTMENT OF | [address] | [place] [address] | | | PATHOLOGY | [address] [...] [facility] | [address] | [place] [address] | | | SERVICES, CORE | PARK [...] - MARGOPIAM | [address] | [place] | | | PEPE MOORE OF CARE | [address] | [address] | | | TESTS | | | [...] SANDERS | [address] | [place], [place] | | | [place] [facility] [place] | [address] | [address] | | | TESTS | | | [...] [facility] | [address] | [place] [address] | | | SERVICES, CORE | BERTRAM [...] [facility] | [address] | [place] [address] | | | SERVICES, CORE | PARK [...] | + + + + + | [facility] | [address] | [place] [address] | | | SERVICES, CORE | BERTRAM [...] | | If supplementation does | | [facility] | | | | not correct consider [...] if | | | | | | [id number] >400: | | | | | | [...] + | [facility] | [address] | [place] [address] | | | [place] | | | [...] [facility] | [address] | [place] [address] | | | SERVICES, CORE | PARK [...] [facility] | [address] | [place] [address] | | | SERVICES, CORE | PARK [...] | + + + + + | [facility] | [address] | [place] [address] | | | SERVICES, CORE | BERTRAM [...] - | | | | | | [place] | | + + + + + + + + | Specimen | + + | Blood - Blood | + + + + + + + | Performing | Address | City/State/Zipcode | Phone Number | | Organization | | | | + + + + + | [facility] | [address] | [place] [address] | | | [place] | | | | + + + [...] MAR[facility] | [address] | [place], [place] | | | PEPE MOORE OF CARE | [address] | [address] | | | TESTS | | | [...] [facility] | [address] | [place] [address] | | | SERVICES, CORE | PARK [...] | + + + + + | [facility] | [address] | [place] [address] | | | SERVICES, CORE | BERTRAM [...] - DAVIDAM | [address] | [place], [place] | | | [facility] | [address] | [address] | | | TESTS | | | [...] | + + + + + | [facility] | [address] | [place] [address] | | | SERVICES, CORE | BERTRAM [...] gas. | | | | | | [id number]-ar-[id number] left | | | | | | [...] SANDERS | [address] | [place], [place] | | | [place] [facility] [place] | [address] | [address] | | | TESTS | | | [...] % | [facility] | | | | [employer],[address] | | REG UNIV | | | | [place] [address], [facility] [place] | | [place] - [facility] | | | | [address] | | | | | | [phone].[employer]. | | | | | | Kaitlin [...] [facility] | [address] | [place], [place] | | | UNIV PTH - INT[facility] | | [address] | | + + + + + [...] | + + + + + | [facility] | [address] [facility] | [place] [address] | | | SERVICES, CORE | BERTRAM [...] | + + + + + | [facility] | [address] | [place] [address] | | | SERVICES, CORE | BERTRAM [...] [facility] | [address] | [place], [place] | | | [facility] [place] | [address] | [address] | | | TESTS | | | [...] | + + + + + | [facility] | [address] | [place] [address] | | | ARON, CORE | PARK [...] | + + + + + | [facility] | [address] | [place] [address] | | | SERVICES, CORE | BERTRAM [...] (H) | 60 - 99 mg/dL | [facility] - | | | GLUCOSE, [...] + + + | [facility] | [address] | [place], [place] | | | PEPE MOORE OF CARE | [address] | [address] | | | TESTS | | | [...] | + + + + + | [facility] | [address] | [place] [address] | | | SERVICES, CORE | PARK [...] | + + + + + | [facility] | [address] | [place] [address] | | | SERVICES, CORE | BERTRAM [...] | + + + + + | [facility] | [address] | [place] [address] | | | SERVICES, CORE | BERTRAM [...] | + + + + + | [facility] | [address] | [place] [address] | | | SERVICES, CORE | PARK [...] [facility] | [address] | [place] [address] | | | SERVICES, CORE | PARK [...] | + + + + + | [facility] | [address] | [place] [address] | | | SERVICES, CORE | PARK [...] + | [facility] | [address] | [place] [address] | | | [place] | | | [...] | | | Final CULTURE | | [place] | | | | RESULT:Salmonella, | | [...] + | [facility] | [address] | [place] [address] | | | [place] | | | [...] | + + + + + | [facility] | [address] | [place] [address] | | | SERVICES, CORE | BERTRAM [...] (H) | 60 - 99 mg/dL | [facility] - | | | GLUCOSE, [...] SANDERS | [address] | [place], [place] | | | [facility] | [address] | [address] | | | TESTS | | | [...] [facility] | [address] | [place], [place] | | | CARDIOLOGY | [address] | [address] | | + + + + + [...] [facility] | [address] | [place] [address] | | | SERVICES, CORE | [address] | | | + + + + + CULTURE, BLOOD BACTI & YEAST [facility] (03/12/2012 9:50 PM PST) + + [...] | + + + + + | [facility] | [address] | [place] [address] | | | SERVICES, CORE | BERTRAM [...] [facility] | [address] | [place] [address] | | | SERVICES, CORE | PARK [...] | + + + + + | [facility] | [address] [facility] | [place] [address] | | | SERVICES, CORE | PARK [...] - MARILYN | [address] | [place], [place] | | | [facility] | [facility] | [address] | | | TESTS | | | [...] [facility] | [address] | [place] [address] | | | SERVICES, CORE | PARK [...] [facility] | [address] | [place] [address] | | | SERVICES, CORE | PARK [...] [facility] | [address] | [place] [address] | | | SERVICES, | [address] [...] | + + + + + | [facility] | [address] [facility] | [place] [address] | | | SERVICES, | [address] [...] | + + + + + | [facility] | [address] | [place] [address] | | | SERVICES, CORE | BERTRAM [...] [facility] | [address] | [place] [address] | | | JANELL SHARP | PARK [...] | + + + + + | [facility] | [address] | [place] [address] | | | JANELL SHARP | [address] | | | + + + + + ORDERS OTHER (03/12/2012 12:00 AM PST) + + + | Narrative | Performed At | + + + | | | | | | + + + + + | Procedure Note | + + | Emeka lEias - 05/16/2012 1:18 PM PST | + [...]
--- OUTSIDE RECORDS SUMMARY | ~2019-03-09 | XMS | Encounter Summary ---
Demographics + + + | Address | [address] | | | [place] [address] | + + + | Home Phone [...] [place], [place] | | | | | [address] | | + + + + + | Cami Sawyer | ECON | Unknown | | + + + + + Care Team Providers + +------+ + | Care Checker Product Design Name | Role | Phone | + [...] [address] | | | | | | [place], [place] | | | | | | [address] | | | +--------+ + + + [...]
--- OUTSIDE RECORDS SUMMARY | ~2019-03-09 | XMS | Encounter Summary ---
Demographics + + + | Address | [address] | | | [place] [address] | + + + | Home Phone | | + + + | Preferred Language | Unknown | + + + | Marital Status | | + + + | Jew Affiliation | Unknown | + + + | Race | Unknown | + + + | Ethnic Group | Unknown | + + + Author + + + | Author | [facility] | | | and [place] | + + + | Organization | [facility] | | | [...] Team Providers + +------+ + | Care Videographer Name | Role | Phone | + [...] + + | 03/15/ | Telephone | [facility] | Severo, | Appointment | | 2019 | | GENERAL SURGERY [address] | [address] | | | | | [address] | [address] | | | | | [place], [place] | [place] [address] | | | | | [address] | [phone] | | | | | [phone] | | | +--------+ + + + [...] [address] | | | | | | [place] [address] | | | | | | [phone] | | | | | | | [...]
--- OUTSIDE RECORDS SUMMARY | ~2019-03-09 | XMS | Encounter Summary ---
Demographics + + + | Address | [address] | | | [place] [address] | + + + | Home Phone | | + + + | Preferred Language | Unknown | + + + | Marital Status | | + + + | Latter Day Affiliation | Unknown | + + + | Race | Unknown | + + + | Ethnic Group | Unknown | + + + Author + + + | Author | [facility] | | | and [place] | + + + | Organization | [facility] | [...] Team Providers + +------+ + | Care Formulator Compounder Name | Role | Phone | + +------+ + PCP | Unavailable | + +------+ + Encounter Details +--------+ + + + + | Date | Type | Department | Care Team | Description | +--------+ + + + + | 10/09/ | Hospital | [facility] | Conversion | | | 2016 | Encounter | CENTER [facility] | Transaction, | | | | | CLINIC [address] | Provider Unknown | | | | | [place], [place] | | | | | | [address] | (Fax) | | | | | [phone] | | | +--------+ + + + [...] Conversion - 11/23/2018 9:20 PM PDT MACKENZIE [id number] years FemaleXR | | CHEST 2 VIEW [...] | | | | | | at [facility];[address] [place] [address] | | | | | | Blvd;[place] [address] | | | | + + + [...] | | | | [facility], [address] [facility] | | | | | | [place] | | | | | | [address] | | | | + + +---- + + + | RED CELL | 4.44Comment: Testing | 3.7 0 - 5.10 | EXTERNAL | | | COUNT | performed at [facility], [address] | M/u L | LAB | | | | [place], | | | | | | [place] [address] | | | | + + +---- + + + | Hgb | 9.2 (L)Comment: Testing | 11. 3 - 15.5 | EXTERNAL | | | | performed at [facility], [address] | g/d L | LAB | | | | [place], | | | | | | [place] [address] | | | | + + +---- + + + | Hematocrit, | 33.1 (L)Comment: RESULT | 34. 0 - 46.0 % | EXTERNAL | | | POC | VERIFIEDTesting | | LAB | | | | performed at [facility], [address] | | | | | | [place], | | | | | | [place] [address] | | | | + + +---- + + + | MCV | 74.6 (L)Comment: Testing | 80. 0 - 100.0 fl | EXTERNAL | | | | performed at [facility], [address] | | LAB | | | | [address] [place], | | | | | | [place] [address] | | | | + + +---- + + + | MCH | 20.7 (L)Comment: Testing | 27. 0 - 34.0 pg | EXTERNAL | | | | performed at [facility], [address] | | LAB | | | | [address] [place], | | | | | | [place] [address] | | | | + + +---- + + + | MCHC | 27.7 (L)Comment: Testing | 32. 0 - 35.5 | EXTERNAL | | | | performed at [facility], [address] | g/d L | LAB | | | | [address] [place], | | | | | | [place] [address] | | | | + + +---- + + + | RDW-CV | 62.6 (H)Comment: Testing | 37 - 53 fl | EXTERNAL | | | | performed at [facility], [address] | | LAB | | | | [address] [place], | | | | | | [place] [address] | | | | + + +---- + + + | Platelet | 538 (H)Comment: Testing | 150 - 400 K/uL | EXTERNAL | | | Count | performed at [facility], [address] | | LAB | | | Plasma | [place], | | | | | | [place] [address] | | | | + + +---- + + + | MPV | 7.9Comment: Testing | fl | EXTERNAL | | | | performed at [facility], [address] | | LAB | | | | [place], | | | | | | [place] [address] | | | | + + +---- + + + | Differentia | MANUALComment: Testing | | EXTERNAL | | | l Type | performed at [facility], [address] | | LAB | | | | [place], | | | | | | [place] [address] | | | | + + +---- + + + | Nucleated | 4 (H)Comment: Testing | /10 0WBC | EXTERNAL | | | Red Blood | performed at [facility], [address] | | LAB | | | Cells | [place], | | | | | | [place] [address] | | | | + + +---- + + + | Segmented | 59Comment: Testing | % | EXTERNAL | | | Neutrophils | performed at [facility], [address] | | LAB | | | Manual | [place], | | | | | | [place] [address] | | | | + + +---- + + + | % Bands | 1Comment: Testing | % | EXTERNAL | | | | performed at [facility], [address] | | LAB | | | | [address], | | | | | | [place] [address] | | | | + + +---- + + + | Lymphocytes | 33Comment: Testing | % | EXTERNAL | | | Manual | performed at [facility], [address] | | LAB | | | | [address], | | | | | | [place] [address] | | | | + + +---- + + + | Monocytes | 7Comment: Testing | % | EXTERNAL | | | Manual | performed at [facility], [address] | | LAB | | | | [place], | | | | | | [place] [address] | | | | + + +---- + + + | Absolute | 11.45 (H)Comment: | 1.9 0 - 7.40 | EXTERNAL | | | Neutrophils | Testing performed at | K/u L | LAB | | | | [facility], [address] | | | | | | [place] | | | | | | [address] | | | | + + +---- + + + | Bands | 0.19Comment: Testing | 0.0 0 - 0.20 | EXTERNAL | | | Manual | performed at [facility], [address] | K/u L | LAB | | | | [place], | | | | | | [place] [address] | | | | + + +---- + + + | Absolute | 6.40 (H)Comment: Testing | 1.0 0 - 3.90 | EXTERNAL | | | Lymphocytes | performed at [facility], [address] | [address]/u [address] | LAB | | | | [address] [place], | | | | | | [place] [address] | | | | + + +---- + + + | Absolute | 1.36 (H)Comment: Testing | 0.0 0 - 0.80 | EXTERNAL | | | Monocytes | performed at [facility], [address] | K/u L | LAB | | | | [address] [place], | | | | | | [place] [address] | | | | + + +---- + + + | Platelet | INCREASEDComment: | | EXTERNAL | | | Estimate | Testing performed at | | LAB | | | | [facility], [address] | | | | | | [place] | | | | | | [address] | | | | + + +---- + + + | RBC | 2+Comment: | | EXTERNAL | | | Morphology | ANISO1+POIK1+POLY3+HYPO2 | | LAB | | | | +MICRO1+TARGETNORMAL PLT | | | | | | MORPHTesting performed | | | | | | at [facility], [address] | | | | | | [place], | | | | | | [place] [address] | | | | | |3+ | | | | | |HYPO | | | | | |2+ | | | | | |MICRO | | | | | |1+ | | | | | |TARGET | | | | | |NORMAL PLT MORPH | | | | | |Testing performed at [facility], [address] [facility] [place] [address] | | | | | | | | | | + + +---- + + + | Differentia | SLIDE REFERRED TO | | EXTERNAL | | | l Comments | PATHOLOGIST FOR REVIEW | | LAB | | | | AND COMMENTComment: | | | | | | Testing performed at | | | | | | [facility], [address] [place] [address] | | | | | | [place] | | | | | | [address] | | | | + + +---- [...] LAB | | | | performed at [facility], [address] | | | | | | [place], | | | | | | [place] [address] | | | | + + + + + + | K | 4.7Comment: SPECIMEN | 3.5 - 4.9 | EXTERNAL | | | | SLIGHTLY | mmol/L | LAB | | | | HEMOLYZEDTesting | | | | | | performed at [facility], [address] | | | | | | [address], | | | | | | [place] [address] | | | | + + + + + + | Cl | 109Comment: Testing | 99 - 109 mmol/L | EXTERNAL | | | | performed at [facility], [address] | | LAB | | | | [address], | | | | | | [place] [address] | | | | + + + + + + | CO2 | 23Comment: Testing | 23 - 32 mmol/L | EXTERNAL | | | | performed at [facility], [address] | | LAB | | | | [address], | | | | | | [place] [address] | | | | + + + + + + | Anion Gap | 13Comment: Testing | 5 - 20 mmol/L | EXTERNAL | | | | performed at [facility], [address] | | LAB | | | | [address], | | | | | | [place] [address] | | | | + + + + + + | Glucose, | 89Comment: SPECIMEN | 65 - 99 mg/dL | EXTERNAL | | | Fasting | SLIGHTLY | | LAB | | | | HEMOLYZEDTesting | | | | | | performed at [facility], [address] | | | | | | [address], | | | | | | [place] [address] | | | | + + + + + + | BUN | 21Comment: Testing | 8 - 25 mg/dL | EXTERNAL | | | | performed at [facility], [address] | | LAB | | | | [address], | | | | | | [place] [address] | | | | + + + + + + | Creatinine | 0.9Comment: SPECIMEN | 0.50 - 1.00 | EXTERNAL | | | | SLIGHTLY | mg/dL | LAB | | | | HEMOLYZEDTesting | | | | | | performed at [facility], [address] | | | [address], | | | | | | [place] [address] | | | | + + + + + + | BUN/Creatin | 23Comment: Testing | | EXTERNAL | | | ine Ratio | performed at [facility], [address] | | LAB | | | | [address], | | | | | | [place] [address] | | | | + + + + + + | Calcium | 9.0Comment: Testing | 8.5 - 10.5 | EXTERNAL | | | | performed at [facility], [address] | mg/dL | LAB | | | | [address], | | | | | | [place] [address] | | | | + + + [...] [place], | | | | | | [place] [address] | | | | + + + [...]
--- OUTSIDE RECORDS SUMMARY | ~2019-03-09 | XMS | Encounter Summary ---
Demographics + + + | Address | [address] | | | [place] [address] | + + + | Home Phone | | + + + | Preferred Language | Unknown | + + + | Marital Status | | + + + | Muslim Affiliation | Unknown | + + + | Race | Unknown | + + + | Ethnic Group | Unknown | + + + Author + + + | Author | [facility]erged With [facility] | | | and [place] | + + + | Organization | Merged With [facility] | | | [...] Providers + +------+ + | Care Assembly Line Upholsterer Name | Role | Phone | + [...] [address] | | | | | [place], [place] | [place] [address] | | | | | [address] | [phone] | | | | | [phone] | | | +--------+ + + + [...]
--- OUTSIDE RECORDS SUMMARY | ~2019-03-09 | XMS | Encounter Summary ---
Demographics + + + | Address | [address] | | | [place] [address] | + + + | Home Phone [...] Team Providers + +------+ + | Care Net Web Developer Name | Role | Phone | [...] Unknown | | | | | [place], [place] | [phone] | | | | | [address] | | | | | | [phone] | | | +--------+ + + + [...]
--- OUTSIDE RECORDS SUMMARY | ~2019-03-09 | XMS | Encounter Summary ---
Demographics + + + | Address | [address] | | | [place] [address] | + + + | Home Phone [...] Team Providers + +------+ + | Care Mission Support Specialist Name | Role | Phone | + +------+ + PCP | Unavailable | + +------+ + Encounter Details +--------+ + + + + | Date | Type | Department | Care Team | Description | +--------+ + + + + | 08/04/ | Hospital | [facility] | Chace Benson | Crohn's disease of | | 2016 - | Encounter | [facility] | MD Alex Steve | large intestine with | | | | CARE FLOOR [address] [place], [place] | complication (HCC) | | 08/07/ | | [address] | [address] | | | 2015 | | [place], [place] | | | | | | [address] | | | | | | [phone] | | | +--------+ + + + [...] Summaries by Deanne Henson MD at 08/08/15 1939 Author: Deanne Henson MD Service: Internal Medicine Author Type: Physician Filed: 08/08/15 1441 Date of Service: 08/08/152 Status: Signed Spike Driver: Deanne Henson MD (Physician) [facility] Service: Hospitalist Physician Discharge Summary Patient [...] She presented to linda rgency department at [facility] today with complaints of diarrhea, [...] she came to the emergency department of [facility], where she was found to have INR of 12.9. NG tube was passed and return was blood-t inged. She was given 2 units of fresh frozen plasma and 10 mg of vitamin K, and patient was transferred to this hospital as there is no GI backup at [facility]. Hospital Course: The pt admitted for vomiting blood with inr > 12. She took extra coumadin pills. She got ffp, vit K, and tx to [facility]. Iv fluds, iv ppi gtt [...] x 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 Neel Fernandes MD [address] [facility] [phone] Medication List START taking these medications lactobacillus [...] are the prescriptions that you need to cook pickled meat. You may get the following medications from [...] 08/08/154 Date of Service: 08/08/151412 Status: Signed Spike Driver: Linh Perez RN (Registered Nurse) Met with pt regarding discharge planning. Pt states she is followed for her coumadin therap hy with [facility]. Pt states she will resume her coumadin servi krystyna with them upon d/c. No other needs at this time. KaylynGhulam Perez RN, CM. [phone] Deanne Galaviz MD - 08/07/2015 10:12 AM PDTFormatting of this note might be different from the or iginal. Progress Notes by Deanne Henson MD at 08/07/15 1012 Author: Deanne Henson MD Service: Internal Medicine Author Type: Physician Filed: 08/07/15 1017 Date of Service: 08/07/15 1012 Status: Signed Spike Driver: Deanne Henson MD (Physician) [facility] Service: Hospitalist Progress Note Hospital Day: [...] She presented to linda rgency department at [facility] today with complaints of diarrhea, [...] she came to the emergency department of [facility], where she was found to have INR of 12.9. NG tube was passed and return was blood-t inged. She was given 2 units of fresh frozen plasma and 10 mg of vitamin K, and patient was transferred to this hospital as there is no GI backup at [facility]. Scheduled Medications baclofen 10 mg [...] prefers vanco.. Mentions seeing dr Townsend at [facility] for fistula b/w vagina, colon. Get [...] 0644 Date of Service: 08/06/152124 Status: Addendum Spike Driver: Celsa Del Castillo RN (Registered Nurse) Related [...] Author: LEVI Gallardo Service: (none) Author Type: Arabic Translator Filed: 08/06/15 1624 Date of Service: 08/06/15 1622 Status: Signed Spike Driver: LEVI Gallardo (Arabic Translator) 08/06/15 1600 Discharge Planning Evaluation Admitting Diagnosis Upper GI Bleed Readmission No Living Arrangements Spouse/significant other Support Systems Spouse/significant other Independent with ADL's Yes Independent with Mobility Yes Mental Status Oriented Anticipated Discharge Plan Post Acute Care Needs None at this time Resources Financial concerns No Transportation issues No Patient/Family concerns No Prescription Plan Yes Anticipated Disposition Facility Type Home DIRECTOR OF BROADCAST met with Pt and discussed discharge planning, [...] needed: None Anticipated DCP: Home ERYN 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 Progress Notes by Deanne Henson MD at 08/06/15 4688 Author: Deanne Henson MD Service: Internal Medicine Author Type: Physician Filed: 08/06/15 1306 Date of Service: 08/06/15 1258 Status: Addendum Spike Driver: Deanne Henson MD (Physician) Related Notes: Original Note by Deanne Henson MD (Physician) filed at 08/06/15 1304 [facility] Service: Hospitalist Progress Note Hospital Day: [...] She presented to linda rgency department at [facility] today with complaints of diarrhea, [...] she came to the emergency department of [facility], where she was found to have INR of 12.9. NG tube was passed and return was blood-t inged. She was given 2 units of fresh frozen plasma and 10 mg of vitamin K, and patient was transferred to this hospital as there is no GI backup at [facility]. Scheduled Medications hydrocortisone sodium succinate [...] recurrent uti's. Mentions seeing dr Townsend at [facility] for fistula b/w vagina, colon. Get [...] 08/06/1545 Date of Service: 08/06/1545 Status: Signed Spike Driver: Hamilton Drummond RPH (Pharmacist) Note ccl 45.9ml/min [...] | | | | | performed at [facility] | | | | | | [address];[place], [place] | | | | | | [address] | | | | + + + [...] [place] | | | | | | [address] | | | | + + +---- + + + | RED CELL | 3.36 (L)Comment: Testing | 3.7 0 - 5.10 | EXTERNAL | | | COUNT | performed at [facility], [address] | M/u L | LAB | | | | [address], | | | | | | [place] [address] | | | | + + +---- + + + | Hgb | 7.8 (L)Comment: Testing | 11. 3 - 15.5 | EXTERNAL | | | | performed at [facility], [address] | g/d L | LAB | | | | [address], | | | | | | [place] [address] | | | | + + +---- + + + | Hematocrit, | 26.6 (L)Comment: Testing | 34. 0 - 46.0 % | EXTERNAL | | | POC | performed at [facility], [address] | | LAB | | | | [address], | | | | | | [place] [address] | | | | + + +---- + + + | MCV | 79.1 (L)Comment: Testing | 80. 0 - 100.0 fl | EXTERNAL | | | | performed at [facility], [address] | | LAB | | | | [address], | | | | | | [place] [address] | | | | + + +---- + + + | MCH | 23.2 (L)Comment: Testing | 27. 0 - 34.0 pg | EXTERNAL | | | | performed at [facility], [address] | | LAB | | | | [address], | | | | | | [place] [address] | | | | + + +---- + + + | MCHC | 29.3 (L)Comment: Testing | 32. 0 - 35.5 | EXTERNAL | | | | performed at [facility], [address] | g/d L | LAB | | | | [address], | | | | | | [place] [address] | | | | + + +---- + + + | RDW-CV | 61.7 (H)Comment: Testing | 37 - 53 fl | EXTERNAL | | | | performed at [facility], [address] | | LAB | | | | [address], | | | | | | [place] [address] | | | | + + +---- + + + | Platelet | 418 (H)Comment: Testing | 150 - 400 K/uL | EXTERNAL | | | Count | performed at [facility], [address] | | LAB | | | Plasma | [address], | | | | | | [place] [address] | | | | + + +---- + + + | MPV | 8.3Comment: Testing | fl | EXTERNAL | | | | performed at [facility], [address] | | LAB | | | | [address], | | | | | | [place] [address] | | | | + + +---- + + + | Differentia | AUTOMATEDComment: | | EXTERNAL | | | l Type | Testing performed at | | LAB | | | | [facility], [address] | | | | | | [place] | | | | | | [address] | | | | + + +---- + + + | % Segmented | 59.50Comment: Testing | % | EXTERNAL | | | | performed at [facility], [address] | | LAB | | | Neutrophils | [address], | | | | | | [place] [address] | | | | + + +---- + + + | % | 29.26Comment: Testing | % | EXTERNAL | | | Lymphocytes | performed at [facility], [address] | | LAB | | | | [address], | | | | | | [place] [address] | | | | + + +---- + + + | % Monocytes | 9.64Comment: Testing | % | EXTERNAL | | | | performed at [facility], [address] | | LAB | | | | [address], | | | | | | [place] [address] | | | | + + +---- + + + | % | 0.54Comment: Testing | % | EXTERNAL | | | Eosinophils | performed at [facility], [address] | | LAB | | | | [address] [place], | | | | | | [place] [address] | | | | + + +---- + + + | % Basophils | 1.06Comment: Testing | % | EXTERNAL | | | | performed at [facility], [address] | | LAB | | | | [address], | | | | | | [place] [address] | | | | + + +---- + + + | Absolute | 9.61 (H)Comment: Testing | 1.9 0 - 7.40 | EXTERNAL | | | Segmented | performed at [facility], [address] | K/u L | LAB | | | Neutrophils | [address], | | | | | | [place] [address] | | | | + + +---- + + + | Absolute | 4.73 (H)Comment: Testing | 1.0 0 - 3.90 | EXTERNAL | | | Lymphocytes | performed at [facility], [address] | K/u L | LAB | | | | [address], | | | | | | [place] [address] | | | | + + +---- + + + | Absolute | 1.56 (H)Comment: Testing | 0.0 0 - 0.80 | EXTERNAL | | | Monocytes | performed at [facility], [address] | K/u L | LAB | | | | [address], | | | | | | [place] [address] | | | | + + +---- + + + | Absolute | 0.09Comment: Testing | 0.0 0 - 0.50 | EXTERNAL | | | Eosinophils | performed at [facility], [address] | K/u L | LAB | | | | [address], | | | | | | [place] [address] | | | | + + +---- + + + | Absolute | 0.17 (H)Comment: Testing | 0.0 0 - 0.10 | EXTERNAL | | | Basophils | performed at [facility], [address] | K/u L | LAB | | | | [address], | | | | | | [place] [address] | | | | + + +---- + + + | RBC | 2+Comment: | | EXTERNAL | | | Morphology | ANISO1+HYPO1+MICRO2+TARG | | LAB | | | | ETNORMAL PLT | | | | | | MORPHTesting performed | | | | | | at [facility], [address] | | | | | | [address], | | | | | | [place] [address] | | | | | |2+ | | | | | |TARGET | | | | | |NORMAL PLT MORPH | | | | | |Testing performed at [facility], [facility] [place] [address] | | | | | | | | | | + + +---- + + + | Differentia | SLIDE SCANNED, AGREES | | EXTERNAL | | | l Comments | WITH AUTOMATED | | LAB | | | | RESULTS.Comment: Testing | | | | | | performed at [facility], [address] | | | | | | [address], | | | | | | [place] [address] | | | | + + +---- [...] L | LAB | | | | [facility], [address] | | | | | | [place] | | | | | | [address] | | | | + + +---- + + + | RED CELL | 3.47 (L)Comment: Testing | 3.7 0 - 5.10 | EXTERNAL | | | COUNT | performed at [facility], [address] | M/u L | LAB | | | | [address], | | | | | | [place] [address] | | | | + + +---- + + + | Hgb | 8.2 (L)Comment: Testing | 11. 3 - 15.5 | EXTERNAL | | | | performed at [facility], [address] | g/d L | LAB | | | | [address], | | | | | | [place] [address] | | | | + + +---- + + + | Hematocrit, | 27.5 (L)Comment: Testing | 34. 0 - 46.0 % | EXTERNAL | | | POC | performed at [facility], [address] | | LAB | | | | [address], | | | | | | [place] [address] | | | | + + +---- + + + | MCV | 79.1 (L)Comment: Testing | 80. 0 - 100.0 fl | EXTERNAL | | | | performed at [facility], [address] | | LAB | | | | [address], | | | | | | [place] [address] | | | | + + +---- + + + | MCH | 23.6 (L)Comment: Testing | 27. 0 - 34.0 pg | EXTERNAL | | | | performed at [facility], [address] | | LAB | | | | [address], | | | | | | [place] [address] | | | | + + +---- + + + | MCHC | 29.8 (L)Comment: Testing | 32. 0 - 35.5 | EXTERNAL | | | | performed at [facility], [address] | g/d L | LAB | | | | [address], | | | | | | [place] [address] | | | | + + +---- + + + | RDW-CV | 62.1 (H)Comment: Testing | 37 - 53 fl | EXTERNAL | | | | performed at [facility], [address] | | LAB | | | | [address], | | | | | | [place] [address] | | | | + + +---- + + + | Platelet | 419 (H)Comment: Testing | 150 - 400 K/uL | EXTERNAL | | | Count | performed at [facility], [address] | | LAB | | | Plasma | [address], | | | | | | [place] [address] | | | | + + +---- + + + | MPV | 8.3Comment: Testing | fl | EXTERNAL | | | | performed at [facility], [address] | | LAB | | | | [address] [place], | | | | | | [place] [address] | | | | + + +---- + + + | Differentia | AUTOMATEDComment: | | EXTERNAL | | | l Type | Testing performed at | | LAB | | | | [facility], [address] | | | | | | [place] | | | | | | [address] | | | | + + +---- + + + | % Segmented | 82.12Comment: Testing | % | EXTERNAL | | | | performed at [facility], [address] | | LAB | | | Neutrophils | [address], | | | | | | [place] [address] | | | | + + +---- + + + | % | 10.53Comment: Testing | % | EXTERNAL | | | Lymphocytes | performed at [facility], [address] | | LAB | | | | [address], | | | | | | [place] [address] | | | | + + +---- + + + | % Monocytes | 6.70Comment: Testing | % | EXTERNAL | | | | performed at [facility], [address] | | LAB | | | | [address], | | | | | | [place] [address] | | | | + + +---- + + + | % | 0.05Comment: Testing | % | EXTERNAL | | | Eosinophils | performed at [facility], [address] | | LAB | | | | [address] [place], | | | | | | [place] [address] | | | | + + +---- + + + | % Basophils | 0.60Comment: Testing | % | EXTERNAL | | | | performed at [facility], [address] | | LAB | | | | [address] [place], | | | | | | [place] [address] | | | | + + +---- + + + | Absolute | 15.31 (H)Comment: | 1.9 0 - 7.40 | EXTERNAL | | | Segmented | Testing performed at | K/u L | LAB | | | Neutrophils | [facility], [address] | | | | | | [place] | | | | | | [address] | | | | + + +---- + + + | Absolute | 1.96Comment: Testing | 1.0 0 - 3.90 | EXTERNAL | | | Lymphocytes | performed at [facility], [address] | K/u L | LAB | | | | [address], | | | | | | [place] [address] | | | | + + +---- + + + | Absolute | 1.25 (H)Comment: Testing | 0.0 0 - 0.80 | EXTERNAL | | | Monocytes | performed at [facility], [address] | K/u L | LAB | | | | [address], | | | | | | [place] [address] | | | | + + +---- + + + | Absolute | 0.01Comment: Testing | 0.0 0 - 0.50 | EXTERNAL | | | Eosinophils | performed at [facility], [address] | K/u L | LAB | | | | [address] [place], | | | | | | [place] [address] | | | | + + +---- + + + | Absolute | 0.11 (H)Comment: Testing | 0.0 0 - 0.10 | EXTERNAL | | | Basophils | performed at [facility], [address] | K/u L | LAB | | | | [address], | | | | | | [place] [address] | | | | + + +---- + + + | RBC | 2+Comment: | | EXTERNAL | | | Morphology | ANISO2+HYPO1+TARGET1+POI | | LAB | | | | KNORMAL PLT MORPHTesting | | | | | | performed at [facility], [address] | | | | | | [address] [facility], | | | | | | [place] [address] | | | | | |TARGET | | | | | |1+ | | | | | |POIK | | | | | |NORMAL PLT MORPH | | | | | |Testing performed at [facility], [address] [place] [address] | | | | | | | [...] EXTERNAL | | | | performed at [facility];[address] | mmol/L | LAB | | | | [address];[place] | | | | | | [address] | | | | + + + [...] EXTERNAL | | | | performed at [facility] | | LAB | | | | [address];[place], [place] | | | | | | [address] | | | | + + + [...] EXTERNAL | | | | performed at [facility];[address] | | LAB | | | | [address];[place], [place] | | | | | | [address] | | | | + + + [...] EXTERNAL | | | | performed at [facility];[address] | mmol/L | LAB | | | | [address];[place], [place] | | | | | | [address] | | | | + + + [...] EXTERNAL | | | | performed at [facility];[address] | | LAB | | | | [address];[place] | | | | | | [address] | | | | + + + [...] EXTERNAL LAB | | Testing performed at [facility];[address] [place] [address];[place] [address] TOXIN A | | | NEGATIVE Testing performed | | | at [facility];[address] [place] [address];[place] [address] C DIFF INTERPRETATION | | | Positive [...] toxin. Testing | | | performed at [facility];[address] [facility];[place] [address] | | + + + + +---------+ [...] LAB | | C.diffAbnormal Testing performed at [facility];[address] [place] [address];[place], [place] | | | [phone] NAP1 BI 027 NAP1 BI | | | PRESUMPTIVE NEGATIVE Detection of 027 NAP1 BI strains of C. difficile | | | is presumptive and for epidemiological purposes and not intended to | | | guide or monitor treatment for C. difficile infections. Testing | | | performed at [facility];[address] [place] [address];[place] [address] | | + + + + +---------+ [...] EXTERNAL | | | | performed at [facility];[address] | g/dL | LAB | | | | [address];[place] | | | | | | [address] | | | | + + + + + + | Hematocrit, | 29.1 (L)Comment: Testing | 34.0 - 46.0 % | EXTERNAL | | | POC | performed at [facility];[address] | | LAB | | | | [address];[place], [place] | | | | | | [address] | | | | + + + [...] EXTERNAL | | | | performed at [facility];[address] | g/dL | LAB | | | | [address];[place] | | | | | | [address] | | | | + + + + + + | Hematocrit, | 28.9 (L)Comment: Testing | 34.0 - 46.0 % | EXTERNAL | | | POC | performed at [facility];[address] | | LAB | | | | [address];[place] | | | | | | [address] | | | | + + + [...] EXTERNAL | | | | performed at [facility];[address] | mmol/L | LAB | | | | [address];[place], [place] | | | | | | [address] | | | | + + + [...] | | | | | performed at [facility];[address] | | | | | | [address];[place], [place] | | | | | | [address] | | | | + + + [...] [place] | | | | | | [address] | | | | + + +---- + + + | RED CELL | 3.89Comment: Testing | 3.7 0 - 5.10 | EXTERNAL | | | COUNT | performed at [facility], [address] | M/u L | LAB | | | | [address] [place], | | | | | | [place] [address] | | | | + + +---- + + + | Hgb | 9.1 (L)Comment: Testing | 11. 3 - 15.5 | EXTERNAL | | | | performed at [facility], [address] | g/d L | LAB | | | | [address] [place], | | | | | | [place] [address] | | | | + + +---- + + + | Hematocrit, | 30.7 (L)Comment: Testing | 34. 0 - 46.0 % | EXTERNAL | | | POC | performed at [facility], [address] | | LAB | | | | [address], | | | | | | [place] [address] | | | | + + +---- + + + | MCV | 78.9 (L)Comment: Testing | 80. 0 - 100.0 fl | EXTERNAL | | | | performed at [facility], [address] | | LAB | | | | [address], | | | | | | [place] [address] | | | | + + +---- + + + | MCH | 23.4 (L)Comment: Testing | 27. 0 - 34.0 pg | EXTERNAL | | | | performed at [facility], [address] | | LAB | | | | [address], | | | | | | [place] [address] | | | | + + +---- + + + | MCHC | 29.7 (L)Comment: Testing | 32. 0 - 35.5 | EXTERNAL | | | | performed at [facility], [address] | g/d L | LAB | | | | [address], | | | | | | [place] [address] | | | | + + +---- + + + | RDW-CV | 63.9 (H)Comment: Testing | 37 - 53 fl | EXTERNAL | | | | performed at [facility], [address] | | LAB | | | | [address], | | | | | | [place] [address] | | | | + + +---- + + + | Platelet | 436 (H)Comment: Testing | 150 - 400 K/uL | EXTERNAL | | | Count | performed at [facility], [address] | | LAB | | | Plasma | [address], | | | | | | [place] [address] | | | | + + +---- + + + | MPV | 8.1Comment: Testing | fl | EXTERNAL | | | | performed at [facility], [address] | | LAB | | | | [address] [place], | | | | | | [place] [address] | | | | + + +---- + + + | Differentia | AUTOMATEDComment: | | EXTERNAL | | | l Type | Testing performed at | | LAB | | | | [facility], [address] | | | | | | [place] | | | | | | [address] | | | | + + +---- + + + | % Segmented | 78.91Comment: Testing | % | EXTERNAL | | | | performed at [facility], [address] | | LAB | | | Neutrophils | [address] [place], | | | | | | [place] [address] | | | | + + +---- + + + | % | 15.10Comment: Testing | % | EXTERNAL | | | Lymphocytes | performed at [facility], [address] | | LAB | | | | [address] [place], | | | | | | [place] [address] | | | | + + +---- + + + | % Monocytes | 5.31Comment: Testing | % | EXTERNAL | | | | performed at [facility], [address] | | LAB | | | | [address], | | | | | | [place] [address] | | | | + + +---- + + + | % | 0.03Comment: Testing | % | EXTERNAL | | | Eosinophils | performed at [facility], [address] | | LAB | | | | [address], | | | | | | [place] [address] | | | | + + +---- + + + | % Basophils | 0.65Comment: Testing | % | EXTERNAL | | | | performed at [facility], [address] | | LAB | | | | [address], | | | | | | [place] [address] | | | | + + +---- + + + | Absolute | 18.14 (H)Comment: | 1.9 0 - 7.40 | EXTERNAL | | | Segmented | Testing performed at | K/u L | LAB | | | Neutrophils | [facility], [address] | | | | | | [place] | | | | | | [address] | | | | + + +---- + + + | Absolute | 3.47Comment: Testing | 1.0 0 - 3.90 | EXTERNAL | | | Lymphocytes | performed at [facility], [address] | K/u L | LAB | | | | [address] [place], | | | | | | [place] [address] | | | | + + +---- + + + | Absolute | 1.22 (H)Comment: Testing | 0.0 0 - 0.80 | EXTERNAL | | | Monocytes | performed at [facility], [address] | [address] | LAB | | | | [address], | | | | | | [place] [address] | | | | + + +---- + + + | Absolute | 0.01Comment: Testing | 0.0 0 - 0.50 | EXTERNAL | | | Eosinophils | performed at [facility], [address] | K/[address] | LAB | | | | [address], | | | | | | [place] [address] | | | | + + +---- + + + | Absolute | 0.15 (H)Comment: Testing | 0.0 0 - 0.10 | EXTERNAL | | | Basophils | performed at [facility], [address] | [address] | LAB | | | | [address], | | | | | | [place] [address] | | | | + + +---- + + + | RBC | 2+Comment: | | EXTERNAL | | | Morphology | ANISO1+POLY2+HYPO1+MICRO | | LAB | | | | 1+TARGETNORMAL PLT | | | | | | MORPHTesting performed | | | | | | at [facility], [address] | | | | | | [facility], | | | | | | [place] [address] | | | | | |1+ | | | | | |MICRO | | | | | |1+ | | | | | |TARGET | | | | | |NORMAL PLT MORPH | | | | | |Testing performed at [facility], [address] [place] [address] | | | | | | | [...] | | | | | [place] [address] | | | | + + [...] EXTERNAL | | | | performed at [facility], [address] | | LAB | | | | [address], | | | | | | [place] [address] | | | | + + + [...] | | | | | [place] [address] | | | | + + + + + + | K | 3.5Comment: Testing | 3.5 - 4.9 | EXTERNAL | | | | performed at [facility], [address] | mmol/L | LAB | | | | [place], | | | | | | [place] [address] | | | | + + + + + + | Cl | 105Comment: Testing | 99 - 109 mmol/L | EXTERNAL | | | | performed at [facility], [address] | | LAB | | | | [address], | | | | | | [place] [address] | | | | + + + + + + | CO2 | 22 (L)Comment: Testing | 23 - 32 mmol/L | EXTERNAL | | | | performed at [facility], [address] | | LAB | | | | [address], | | | | | | [place] [address] | | | | + + + + + + | Anion Gap | 14Comment: Testing | 5 - 20 mmol/L | EXTERNAL | | | | performed at [facility], [address] | | LAB | | | | [address], | | | | | | [place] [address] | | | | + + + + + + | Glucose, | 92Comment: Testing | 65 - 99 mg/dL | EXTERNAL | | | Fasting | performed at [facility], [address] | | LAB | | | | [address], | | | | | | [place] [address] | | | | + + + + + + | BUN | 36 (H)Comment: Testing | 8 - 25 mg/dL | EXTERNAL | | | | performed at [facility], [address] | | LAB | | | | [address], | | | | | | [place] [address] | | | | + + + + + + | Creatinine | 1.07 (H)Comment: Testing | 0.50 - 1.00 | EXTERNAL | | | | performed at [facility], [address] | mg/dL | LAB | | | | [address], | | | | | | [place] [address] | | | | + + + + + + | BUN/Creatin | 34Comment: Testing | | EXTERNAL | | | ine Ratio | performed at [facility], [address] | | LAB | | | | [address], | | | | | | [place] [address] | | | | + + + + + + | Calcium | 7.0 (L)Comment: Testing | 8.5 - 10.5 | EXTERNAL | | | | performed at [facility], [address] | mg/dL | LAB | | | | [address], | | | | | | [place] [address] | | | | + + + + + + | Protein, | 5.9 (L)Comment: Testing | 6.3 - 8.2 g/dL | EXTERNAL | | | Total | performed at [facility], [address] | | LAB | | | | [address], | | | | | | [place] [address] | | | | + + + + + + | Albumin | 2.9 (L)Comment: Testing | 3.6 - 5.0 g/dL | EXTERNAL | | | | performed at [facility], [address] | | LAB | | | | [address], | | | | | | [place] [address] | | | | + + + + + + | Globulin | 3.0Comment: Testing | 1.3 - 4.9 g/dL | EXTERNAL | | | | performed at [facility], [address] | | LAB | | | | [place] [place], | | | | | | [place] [address] | | | | + + + + + + | A/G Ratio | 1.0Comment: Testing | 1.0 - 2.4 | EXTERNAL | | | | performed at [facility], [address] | | LAB | | | | [address], | | | | | | [place] [address] | | | | + + + + + + | Bilirubin | 0.8Comment: Testing | 0.1 - 1.5 mg/dL | EXTERNAL | | | Total | performed at [facility], [address] | | LAB | | | | [address], | | | | | | [place] [address] | | | | + + + + + + | ALP, | 148 (H)Comment: Testing | 35 - 115 U/L | EXTERNAL | | | External | performed at [facility], [address] | | LAB | | | [address], | | | | | | [place] [address] | | | | + + + + + + | AST | 34Comment: Testing | 10 - 45 U/L | EXTERNAL | | | | performed at [facility], [address] | | LAB | | | | [address], | | | | | | [...] [place], | | | | | | [place] [address] | | | | + + + [...] EXTERNAL | | | | performed at [facility];[place] | g/dL | LAB | | | | [address] [place] | | | | | | [address] | | | | + + + + + + | Hematocrit, | 32.0 (L)Comment: Testing | 34.0 - 46.0 % | EXTERNAL | | | POC | performed at [facility];888 | | LAB | | | | [place] | | | | | | [address] | | | | + + + [...] EXTERNAL | | | | performed at [facility], [address] | | LAB | | | | [place], | | | | | | [place] [address] | | | | + + + + + + | RBC, UA | 1-5Comment: Testing | 0 - 5 /hpf | EXTERNAL | | | | performed at [facility], [address] | | LAB | | | | [place], | | | | | | [place] [address] | | | | + + + + + + | Epithelial | 1-5Comment: Testing | /lpf | EXTERNAL | | | Cells | performed at [facility], [address] | | LAB | | | | [place], | | | | | | [place] [address] | | | | + + + + + + | Bacteria, | NONE SEENComment: | | EXTERNAL | | | UA | Testing performed at | | LAB | | | | [facility], [address] | | | | | | [place] | | | | | | [address] | | | | + + + [...] | | | | | [place] [address] | | | | + + + + + + | Clarity | TURBIDComment: Testing | | EXTERNAL | | | | performed at [facility], [address] | | LAB | | | | [address] [place], | | | | | | [place] [address] | | | | + + + + + + | Specific | 1.018Comment: Testing | 1.002 - 1.030 | EXTERNAL | | | [place] | performed at [facility], [address] | | LAB | | | | [place], | | | | | | [place] [address] | | | | + + + + + + | Leukocyte | LARGE (A)Comment: | | EXTERNAL | | | Esterase, | Testing performed at | | LAB | | | Urine | [facility], [address] | | | | | | [place] | | | | | | [address] | | | | + + + + + + | Nitrite, | NEGATIVEComment: Testing | | EXTERNAL | | | Urine | performed at [facility], [address] | | LAB | | | | [address], | | | | | | [place], [place] [address] | | | | + + + + + + | Urobilinoge | 0.2Comment: Testing | mg/dL | EXTERNAL | | | n, Urine | performed at [facility], [address] | | LAB | | | | [address], | | | | | | [place], [place] [address] | | | | + + + + + + | Protein, | 30 (A)Comment: Testing | mg/dL | EXTERNAL | | | Urine | performed at [facility], [address] | | LAB | | | | [address], | | | | | | [place] [address] | | | | + + + + + + | pH, Urine | 6.0Comment: Testing | 5.0 - 8.0 | EXTERNAL | | | | performed at [facility], [address] | | LAB | | | | [address], | | | | | | [place] [address] | | | | + + + + + + | Blood, | MODERATE (A)Comment: | | EXTERNAL | | | Urine | Testing performed at | | LAB | | | | [facility], [address] | | | | | | [place] | | | | | | [address] | | | | + + + + + + | Ketones | NEGATIVEComment: Testing | mg/dL | EXTERNAL | | | | performed at [facility], [address] | | LAB | | | | [address] [place], | | | | | | [place] [address] | | | | + + + + + + | Bilirubin, | SMALL (A)Comment: | | EXTERNAL | | | Urine | Testing performed at | | LAB | | | | [facility], [address] | | | | | | [place] | | | | | | [address] | | | | + + + + + + | Glucose, | NEGATIVEComment: Testing | mg/dL | EXTERNAL | | | Urine | performed at [facility], [address] | | LAB | | | | [address], | | | | | | [place] [address] | | | | + + + [...] | | | | | performed at [facility];[address] | | | | | | [address] [place], [place] | | | | | | [address] | | | | + + + [...] L | LAB | | | | [facility], [address] | | | | | | [place] | | | | | | [address] | | | | + + +---- + + + | RED CELL | 4.26Comment: Testing | 3.7 0 - 5.10 | EXTERNAL | | | COUNT | performed at [facility], [address] | M/u L | LAB | | | | [place], | | | | | | [place] [address] | | | | + + +---- + + + | Hgb | 10.3 (L)Comment: Testing | 11. 3 - 15.5 | EXTERNAL | | | | performed at [facility], [address] | g/d L | LAB | | | | [address] [place], | | | | | | [place] [address] | | | | + + +---- + + + | Hematocrit, | 33.2 (L)Comment: Testing | 34. 0 - 46.0 % | EXTERNAL | | | POC | performed at [facility], [address] | | LAB | | | | [address] [place], | | | | | | [place] [address] | | | | + + +---- + + + | MCV | 77.9 (L)Comment: Testing | 80. 0 - 100.0 fl | EXTERNAL | | | | performed at [facility], [address] | | LAB | | | | [address] [place], | | | | | | [place] [address] | | | | + + +---- + + + | MCH | 24.1 (L)Comment: Testing | 27. 0 - 34.0 pg | EXTERNAL | | | | performed at [facility], [address] | | LAB | | | | [address] [place], | | | | | | [place] [address] | | | | + + +---- + + + | MCHC | 30.9 (L)Comment: Testing | 32. 0 - 35.5 | EXTERNAL | | | | performed at [facility], [address] | g/d L | LAB | | | | [address] [place], | | | | | | [place] [address] | | | | + + +---- + + + | RDW-CV | 61.3 (H)Comment: Testing | 37 - 53 fl | EXTERNAL | | | | performed at [facility], [address] | | LAB | | | | [address] [place], | | | | | | [place] [address] | | | | + + +---- + + + | Platelet | 445 (H)Comment: Testing | 150 - 400 K/uL | EXTERNAL | | | Count | performed at [facility], [address] | | LAB | | | Plasma | [place] [place], | | | | | | [place] [address] | | | | + + +---- + + + | MPV | 8.6Comment: Testing | fl | EXTERNAL | | | | performed at [facility], [address] | | LAB | | | | [place], | | | | | | [place] [address] | | | | + + +---- + + + | Differentia | MANUALComment: Testing | | EXTERNAL | | | l Type | performed at [facility], [address] | | LAB | | | | [place], | | | | | | [place] [address] | | | | + + +---- + + + | Segmented | 77Comment: Testing | % | EXTERNAL | | | Neutrophils | performed at [facility], [address] | | LAB | | | Manual | [place], | | | | | | [place] [address] | | | | + + +---- + + + | Lymphocytes | 14Comment: Testing | % | EXTERNAL | | | Manual | performed at [facility], [address] | | LAB | | | | [place], | | | | | | [place] [address] | | | | + + +---- + + + | Monocytes | 9Comment: Testing | % | EXTERNAL | | | Manual | performed at [facility], [address] | | LAB | | | | [place], | | | | | | [place] [address] | | | | + + +---- + + + | Absolute | 22.20 (H)Comment: | 1.9 0 - 7.40 | EXTERNAL | | | Neutrophils | Testing performed at | K/u L | LAB | | | | [facility], [address] | | | | | | [place] | | | | | | [address] | | | | + + +---- + + + | Absolute | 4.04 (H)Comment: Testing | 1.0 0 - 3.90 | EXTERNAL | | | Lymphocytes | performed at [facility], [address] | K/u L | LAB | | | | [address] [place], | | | | | | [place] [address] | | | | + + +---- + + + | Absolute | 2.59 (H)Comment: Testing | 0.0 0 - 0.80 | EXTERNAL | | | Monocytes | performed at [facility], [facility] | K/u L | LAB | | | | [address] [place], | | | | | | [place] [address] | | | | + + +---- + + + | RBC | 1+Comment: | | EXTERNAL | | | Morphology | ANISO1+POIK2+HYPO1+MICRO | | LAB | | | | 1+TARGETNORMAL PLT | | | | | | MORPHTesting performed | | | | | | at [facility], [facility] [address] | | | | | | [place], | | | | | | [place] [address] | | | | | |1+ | | | | | |MICRO | | | | | |1+ | | | | | |TARGET | | | | | |NORMAL PLT MORPH | | | | | |Testing performed at [facility], [address] [place] [address] | | | | | | | [...] | | | | | [place] [address] | | | | + + + + + + | K | 2.9 (L)Comment: Testing | 3.5 - 4.9 | EXTERNAL | | | | performed at [facility], [address] | mmol/L | LAB | | | | [place], | | | | | | [place] [address] | | | | + + + + + + | Cl | 98 (L)Comment: Testing | 99 - 109 mmol/L | EXTERNAL | | | | performed at [facility], [address] | | LAB | | | | [address], | | | | | | [place], [place] [address] | | | | + + + + + + | CO2 | 22 (L)Comment: Testing | 23 - 32 mmol/L | EXTERNAL | | | | performed at [facility], [address] | | LAB | | | | [address], | | | | | | [place], [place] [address] | | | | + + + + + + | Anion Gap | 16Comment: Testing | 5 - 20 mmol/L | EXTERNAL | | | | performed at [facility], [address] | | LAB | | | | [address], | | | | | | [place] [address] | | | | + + + + + + | Glucose, | 89Comment: Testing | 65 - 99 mg/dL | EXTERNAL | | | Fasting | performed at [facility], [address] | | LAB | | | | [address], | | | | | | [place] [address] | | | | + + + + + + | BUN | 39 (H)Comment: Testing | 8 - 25 mg/dL | EXTERNAL | | | | performed at [facility], [address] | | LAB | | | [address], | | | | | | [place] [address] | | | | + + + + + + | Creatinine | 1.49 (H)Comment: Testing | 0.50 - 1.00 | EXTERNAL | | | | performed at [facility], [address] | mg/dL | LAB | | | | [address], | | | | | | [place] [address] | | | | + + + + + + | BUN/Creatin | 26Comment: Testing | | EXTERNAL | | | ine Ratio | performed at [facility], [address] | | LAB | | | | [address], | | | | | | [place] [address] | | | | + + + + + + | Calcium | 7.5 (L)Comment: Testing | 8.5 - 10.5 | EXTERNAL | | | | performed at [facility], [address] | mg/dL | LAB | | | | [place], | | | | | | [place] [address] | | | | + + + + + + | Protein, | 6.8Comment: Testing | 6.3 - 8.2 g/dL | EXTERNAL | | | Total | performed at [facility], [address] | | LAB | | | | [place], | | | | | | [place] [address] | | | | + + + + + + | Albumin | 3.4 (L)Comment: Testing | 3.6 - 5.0 g/dL | EXTERNAL | | | | performed at [facility], [address] | | LAB | | | | [place], | | | | | | [place] [address] | | | | + + + + + + | Globulin | 3.4Comment: Testing | 1.3 - 4.9 g/dL | EXTERNAL | | | | performed at [facility], [address] | | LAB | | | | [address], | | | | | | [place] [address] | | | | + + + + + + | A/G Ratio | 1.0Comment: Testing | 1.0 - 2.4 | EXTERNAL | | | | performed at [facility], [address] | | LAB | | | | [address], | | | | | | [place] [address] | | | | + + + + + + | Bilirubin | 0.8Comment: Testing | 0.1 - 1.5 mg/dL | EXTERNAL | | | Total | performed at [facility], [address] | | LAB | | | | [address], | | | | | | [place] [address] | | | | + + + + + + | ALP, | 183 (H)Comment: Testing | 35 - 115 U/L | EXTERNAL | | | External | performed at [facility], [address] | | LAB | | | | [place] [place], | | | | | | [place] [address] | | | | + + + + + + | AST | 48 (H)Comment: Testing | 10 - 45 U/L | EXTERNAL | | | | performed at [facility], [address] | | LAB | | | | [address], | | | | | | [place] [address] | | | | + + + + + + | ALT | 56Comment: Testing | 10 - 65 U/L | EXTERNAL | | | | performed at [facility], [address] | | LAB | | | [address], | | | | | | [place] [address] | | | | + + + [...] [place], | | | | | | [place] [address] | | | | + + + [...]
--- OUTSIDE RECORDS SUMMARY | ~2019-03-09 | XMS | Clinical Summary ---
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
--- OUTSIDE RECORDS SUMMARY | ~2019-03-09 | XMS | Encounter Summary ---
Demographics + + + | Address | [address] | | | [place] [address] | + + + | Home Phone [...] Team Providers + +------+ + | Care Dumper Bulk System Name | Role | Phone | + [...] [address] | | | | | [place], [place] | [place] [address] | | | | | [address] | [phone] | | | | | [phone] | | | +--------+ + + + [...]
--- OUTSIDE RECORDS SUMMARY | ~2019-03-09 | XMS | Encounter Summary ---
Demographics + + + | Address | [address] | | | [place] [address] | + + + | Home Phone [...] [place], [place] | | | | | [address] | | + + + + + | Cami Sawyer | ECON | Unknown | | + + + + + Care Team Providers + +------+ + | Care Dementia Program Director Name | Role | Phone | [...] RE-OPEN LAPAROTOMY, | | 2015 | | [facility] | [address] | evacuation of | | | | Admitting Desk | [address] | hematoma, control of | | | | Located on the 9 | [place], [place] | retroperitonieal | | | | floor [address] [facility] | [address] | hemorage, lysis of | | | | [address] | [phone] | adhesions, wound vac | | | | [place], [place] | | placement, and | | | | [address] | | abdominal wall | | | [...] might be different f rom the original. [facility] DEPARTMENT OF SURGERY EMERGENCY GENERAL SURGERY [...] continued to progress and is discharged to residential facility for [facility]. Mackenzie Hartley is discharged in [...] 100mls three times a day. Destination: Destination: [facility] Facility Thank you for the opportunity to [...] might be different f rom the original. [facility] DEPARTMENT OF SURGERY [...] while anticoagulated with warfarin transferred to [facility] from [facility] for hanh gement of retroperitoneal bleed. [...] diet Discharge Plan: [place] [id number] pager number [facility] A [address] [address] Jean-Claude Chaidez DM D, MD - 05/12/2014 7:[address] 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 from [facility] for management of retroperitoneal bleed. S [...] while anticoagulated with warfarin transferred to [facility] from [facility] for management of retroperitoneal bleed. She [...] if she wants to see the [facility] GI team - Stage I pressure [...] VIBRA since would be close to [facility] and she would benefit for aggres [...] complication 03/12/2012 Jean-Claude Albrecht D.M.D., M.D. [facility] 10A [address] [facility] [place] [place] [id number] This assessment and plan was formulated both [...] - 05/11/2014 8:[address] 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 from [facility] for management of retroperitoneal bleed. S [...] while anticoagulated with warfarin transferred to [facility] from [facility] for management of retroperitoneal bleed. She [...] if she wants to see the [facility] GI team - Stage I pressure [...] VIBRA since would be close to [facility] and she would benefit for aggres [...] complication 03/12/2012 Jean-Claude Albrecht D.M.D., M.D. [facility] [address]A [address] [facility] [place] [address] This assessment and plan was formulated both [...] being active. Pt's has been at the [facility] supporting her. Pt is not confucianist but appreciates support. Intervention: Provided a listening presence and explored pt's anxieties, worries and hopes. Plan: Spiritual care remains available. Yvette Jolly, [facility] phone # [phone] pager # [phone] on-call # [phone] signed by Lulu Diaz at 05/10/2014 12:58 PM Andrew Horne Md - 05/10/2014 7:[address] 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 from [facility] for management of retroperitoneal bleed. S [...] while anticoagulated with warfarin transferred to [facility] from [facility] for management of retroperitoneal bleed. She [...] if she wants to see the [facility] GI team - Stage I pressure [...] JJ since would be close to [facility] and she would benefit for marcela [...] with complication 03/12/[address] [facility] [address]A [address] [place] [address] This assessment and plan was [...] note might be different from the [facility]. 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 from [facility] for management of retroperitoneal bleed. S [...] while anticoagulated with warfarin transferred to [facility] from [facility] for management of retroperitoneal bleed. She [...] if she wants to see the [facility] GI team - Stage I pressure [...] SONIAA since would be close to [facility] and she would benefit for aggres [...] with complication 03/12/[address] [facility] [address]A [address] [place] [address] This assessment and plan was [...] note might be different from the orig [facility]. 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 from [facility] for management of retroperitoneal bleed. S [...] Imaging No new Cultures BLOOD CULTURE [facility] (no units) Date Value Range Status [...] while anticoagulated with warfarin transferred to [facility] from [facility] for management of retroperitoneal bleed. She [...] if she wants to see the [facility] GI team - Stage I pressure [...] SONIAA since would be close to [facility] and she would benefit for marcela [...] with complication 03/12/[address] 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 from [facility] for management of retroperitoneal bleed. S [...] Imaging No new Cultures BLOOD CULTURE [facility] (no units) Date Value Range Status [...] while anticoagulated with warfarin transferred to [facility] from [facility] for management of retroperitoneal bleed. She [...] with complication 03/12/[address] 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 from [facility] for management of retroperitoneal bleed. S [...] Imaging No new Cultures BLOOD CULTURE [facility] (no units) Date Value Range Status [...] while anticoagulated with warfarin transferred to [facility] from [facility] for management of retroperitoneal bleed. She [...] continued DHT,TF - Diet: NPO - per HEAT TREATMENT TECHNICIAN, high risk of aspiration - continue ice [...] with complication 03/12/[address] [facility] [address]A [address] [place] [address] This assessment and plan was [...] note might be different from the orig [facility]. 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 from [facility] for management of retroperitoneal bleed. S [...] Imaging No new Cultures BLOOD CULTURE [facility] (no units) Date Value Range Status [...] while anticoagulated with warfarin transferred to [facility] from [facility] for management of retroperitoneal bleed. She [...] with complication 03/12/[address] [facility] [address]A [address] [place] [address] This assessment and plan was formulated both [...] resident s note. PHIL VARMA MD [facility] 10A [address] [place] [address] Rosa Sauer MD - 05/04/2014 8:26 AM [...] at referring hospital. She was transferred to [facility] f or active hemorrhage and [...] rounds. Rosa Reynoso, R2 SICU/Trauma Personal pager: [phone] Team pager: [phone] Angeles Acevedo MD - 05/04/2014 7:08 AM PST [facility] DEPARTMENT OF SURGERY EGS ICU Progress Note Division of Trauma and Critical Care ID: Mackenzie Hartley is a 58 year old female with COPD, Crohn's disease, chronic pain, and 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 while anticoagulated with warfarin transferre d to [facility] from [facility] for management of retroperitoneal bleed. She [...] while anticoagulated with warfarin transferred to [facility] from [facility] for management of retroperitoneal bleed. She has required repeated transfers to ICU for respiratory status. She has been diuresed ap propriately while in the ICU and O2 needs have decreased significantly. Will transfer to [facility] or, but need to keep a [...] Hannah MD General Surgery Resident, R3 Pager [phone] [facility] [address] [place] [address] Jf Jones MD - 05/03/2014 9:38 AM [...] - TF at goal, + BM Dysphagia: HEAT TREATMENT TECHNICIAN following- remains NPO Anasarca: compression socks,. Goal [...] Call team 01/11 for questions: Team Pager [phone] ATTENDING ADDENDUM: I saw and examined Mackenzie [...] Erin Christensen PA-C. Jf Wiseman MD FACS sign erector Division of Trauma, Critical Care, and Acute Care Surgery [phone] Elda Emmanuel MD - 05/03/2014 3:49 AM PST EMERGENCY GENERAL SURGERY ICU PROGRESS NOTE: Attending Physician: Jf Wiseman MD 05/03/2014 ID: aMckenzie Hartley is a 58 year old female with COPD, Crohn's disease, chronic pain, and coagulopa thy resulting in splenic artery thrombosis while anticoagulated with warfarin transferred to [facility] from [facility] for management of retroperitoneal bleed. She [...] while anticoagulated with warfarin transferred to [facility] from [facility] for management of retroperitoneal bleed. 1. [...] this patient encounter. Elda Glez MD Pager [phone] Plastic Surgery R2 [facility] Diagnoses: 555.2 Crohn's [...] holding Q6W Remicade- will consult hematology in [facility] week regarding of timing of resuming remicade Severe malnutrition: - TF at goal, + BM, Dysphagia: HEAT TREATMENT TECHNICIAN following- remains NPO Anasarca: compression socks,. Goal [...] Call team 01/11 for questions: Team Pager [phone] ATTENDING ADDENDUM: I saw and examined Mackenzie [...] Marge Harris PA-C. Jf Wiseman MD FACS sign erector Division of Trauma, Critical Care, and Acute Care Surgery [phone] ngeles Hannah MD - 05/02/2014 6:55 AM PST [facility] DEPARTMENT OF SURGERY EGS ICU Progress Note Division of Trauma and Critical Care ID: Mackenzie Hartley is a 58 year old female with COPD, Crohn's disease, chronic pain, and 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 while anticoagulated with warfarin transferre d to [facility] from [facility] for management of retroperitoneal bleed. She [...] liquid 8.8 mg, 5 mL, oral, BID, Bartloo Thacker MD, 8.8 mg at 04/29/142043 warfarin [...] while anticoagulated with warfarin transferred to [facility] from [facility] for management of retroperitoneal bleed. Neuro: [...] Hannah MD General Surgery Resident, R3 Pager [phone] [place] [phone] Kristina, Angeles Hanna MD - 05/02/2014 2:14 [...] Hannah MD General Surgery Resident, R3 Pager [phone] Jean-Claude Chaidez DMD, MD - 05/01/2014 10:36 AM PST [facility] DEPARTMENT OF SURGERY EGS Progress Note ID: Mackenzie Hartley is a 58 year old female with COPD, Crohn's disease, chronic pain, and 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 while anticoagulated with warfarin transferre d to [facility] from [facility] for management of retroperitoneal bleed. She [...] 2 mg, 2 mg, Intracatheter, PRN, Barbara Haong MD, 2 mg at 04/30/14 1147 artificial [...] while anticoagulated with warfarin transferred to [facility] from [facility] for management of retroperitoneal bleed. Overall, she is improving. However, remains tachycardic with leukocytosis - WBC [address] 05/01 showed - moderate ascites and pleural effusions and hematoma. Neuro: dilaudid IV PRN Speech: following continue daily to eval swallow CV: HD stable L HOSPICE VOLUNTEER COORDINATOR PSA resolved Continue IV lasix today 20 [...] hospitalization Jean-Claude Albrecht D.M.D., M.D. [facility] [place] [address] [place] [facility] [place] [address] fJ Jones MD - 04/30/2014 11:08 AM PST [...] at referring hospital. She was transferred to [facility] fo r active hemorrhage and [...] malnutrition: - pulled DHT- refusing replacement. Await HEAT TREATMENT TECHNICIAN eval if passes swallow will give chance to prove adequate po intake. Expect will require TFs again Dysphagia: await HEAT TREATMENT TECHNICIAN eval today. Cont meds and feed via [...] Call team 01/11 for questions: Team Pager [phone] ATTENDING ADDENDUM: I saw and examined Mackenzie [...] Marge Harris PA-C. Jf Wiseman MD FACS sign erector Division of Trauma, Critical Care, and Acute Care Surgery [phone] Angeles Acevedo MD - 04/30/2014 1:18 AM PST [facility] DEPARTMENT OF SURGERY EGS ICU Progress Note Division of Trauma and Critical Care ID: Mackenzie Hartley is a 58 year old female with COPD, Crohn's disease, chronic pain, and 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 while anticoagulated with warfarin transferre d to [facility] from [facility] for management of retroperitoneal bleed. She [...] while anticoagulated with warfarin transferred to [facility] from [facility] for management of retroperitoneal bleed. Overall, she is improving. However, remains tachycardic with leukocytosis -- difficult to t ease out if this is secondary to asplenia. Will obtain CT abd pelvis today to clarify. Neuro: dilaudid IV PRN and intermittent versed for sedation CV: HD stable L HOSPICE VOLUNTEER COORDINATOR PSA resolved Pulm: titrate to O2 >92% [...] Hannah MD General Surgery Resident, R3 Pager [phone] [facility] [address] [place] [address] Aravind Morales MD - 04/29/2014 11:43 AM PSTICU Attending: I saw and examined Mackenzie Hartley ([id number]) with Erin Christensen PA-C on 04/29/14 and [...] documented by valentin HASTINGS. Aravind Massey MD Investigation Lieutenant Trauma, Critical Care & Acute Care Surgery [...] at referring hospital. She was transferred to [facility] fo r active hemorrhage. Hospital [...] resolving cont current H2O via DHT Dysphagia: HEAT TREATMENT TECHNICIAN consulted, ice chips only. Cont meds and [...] Call team 01/11 for questions: Team Pager [phone] Chelly Blum MD,M PH - 04/28/2014 3:03 [...] at referring hospital. She was transferred to [facility] fo r active hemorrhage. Hospital [...] Hyernatremia: resolving, reduce H2O to 30ml/hr Dysphagia: HEAT TREATMENT TECHNICIAN consulted, ice chips only. Cont meds and [...] Call team 01/11 for questions: Team Pager [phone] Angeles Acevedo MD - 04/28/2014 5:18 AM PST [facility] DEPARTMENT OF SURGERY EGS ICU Progress Note Division of Trauma and Critical Care ID: Mackenzie Hartley is a 58 year old female with COPD, Crohn's disease, chronic pain, and 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 while anticoagulated with warfarin transferre d to [facility] from [facility] for management of retroperitoneal bleed. She is s/p ex lap, splenectomy, and packing with lap pads at OSH and from reopening of laparotomy, evacua tion of 2-3 L of intraabdominal hematoma, closure of open abdomen SUBJECTIVE: Extubated, neurologically doing much better. 3 L NC Underwent successful thrombin injection of L HOSPICE VOLUNTEER COORDINATOR pseudoaneurysm by IR 04/26 MEDICATIONS: Current facility-administered medications:acetaminophen (TYLENOL) tablet 650 mg, 650 mg, or al, Q6H, Bartolo Thacker MD, 650 mg at 04/27/142051 alteplase (CATHFLO ACTIVASE) injection 2 mg, 2 mg, Intracatheter, PRN, Barbara Hoang MD artificial tears (hypromellose) (NATURES TEARS) 0.4 % ophthalmic drops 1 drop, 1 drop, Both Eyes, PRN, Willwo L Colovos, ACNP ascorbic acid liquid 500 [...] while anticoagulated with warfarin transferred to [facility] from [facility] for management of retroperitoneal bleed. Neuro: dilaudid IV PRN and intermittent versed for sedation CV: HD stable Per vascular: arterial duplex of L HOSPICE VOLUNTEER COORDINATOR to assess for stability of PSA shows [...] Hannah MD General Surgery Resident, R3 Pager [phone] [facility] [address] [address] Xin Irizarry M D - 04/27/2014 11:55 [...] imaging and laboratory study results EPIC DEPARTMENT: [id number] - HEM FACULTY [facility] Place of Service: - Inpatient Date of Service: 04-27-2014 Modifiers: GC - Resident Involved Suggested CPT: 75481 - Initial, Comp; Mod complex 50 min [address]IN AGEE MD [facility] [address] [place] [address] wRudy powers Do - 04/27/2014 11:55 AM PST Hematology Consult Progress Note Primary Service: EGS Primary Attending: Jf Wiseman MD Hospital Length of Stay: 4 Interval Events: - extubated - thrombin injection to HOSPICE VOLUNTEER COORDINATOR pseudoaneurysm - heparin gtt started last night Subjective: Patient is unable to provide history as she remains encephalopathic. Did speak with her , who confirmed history obtained in initial heme consult note. States she givens s been on warfarin since her 2011 [facility] admission with no known thrombotic events [...] nt and plan. Rudy Sarmiento, DO [facility] Internal Medicine PGY3 Pager [phone] Mirela Josue MD - 04/27/2014 10:[address] [facility] Department of Surgery Progress Note Author: [...] underwent successful thrombin injection of the left HOSPICE VOLUNTEER COORDINATOR pseudoaneurysm by IR last night. Heparin restarted [...] ultraso und guided thrombin injection of left HOSPICE VOLUNTEER COORDINATOR pseudoanuerysm. Will order arterial duplex of left HOSPICE VOLUNTEER COORDINATOR to assess for stability of pseudoaneurysm Monitor [...] hemorrhage vs HCAP LUCY MARKS MD [facility] [address] [place] [address] This assessment and plan was formulated both independently and in conjunction with the [facility] ular Surgery Team as well as the attending provider of record above regarding management of this patient and their medical issues. It is accurate to the best of my knowledge, and is s ubject to modification based on clinical developments, new data, or final imaging results. [facility] staff I saw and evaluated the patient. I agree with the findings and the plan of care as jannie hair in the resident s note. Left femoral pseudoaneurysm appears resolved. Stable from [facility] standpoint. No further imaging required unless clinical status changes. Mirela Thompson M.D. [facility] Vascular Surgery [address] [facility] [place] [address] Email: [email or web address] Jf Jones MD - 04/27/2014 8:03 AM [...] at referring hospital. She was transferred to [facility] fo r active hemorrhage. Hospital [...] H2O Hyernatremia: water 100ml/hr via DHT Dysphagia: HEAT TREATMENT TECHNICIAN consulted, ice chips only JULIANE: ATN from [...] Call team 01/11 for questions: Team Pager [phone] ATTENDING ADDENDUM: I saw and examined Mackenzie [...] Erin Christensen PA-C. Jf Wiseman MD FACS sign erector Division of Trauma, Critical Care, and Acute Care Surgery [phone] ankerElda MD - 04/27/2014 4:52 AM PST EMERGENCY GENERAL SURGERY ICU PROGRESS NOTE: Attending Physician: Jf Wiseman MD 04/27/2014 ID: Mackenzie Hartley is a 58 year old female with COPD, Crohn's disease, chronic pain, and coagulopa thy resulting in splenic artery thrombosis while anticoagulated with warfarin transferred to [facility] from [facility] for management of retroperitoneal bleed. She [...] HR EVENTS: - Incidentally found to have HOSPICE VOLUNTEER COORDINATOR pseudoaneurysm, injected with thrombin by IR - [...] while anticoagulated with warfarin transferred to [facility] from [facility] for management of retroperitoneal bleed. Neuro: [...] this patient encounter. Elda Glez MD Pager [phone] Plastic Surgery R2 [facility] Diagnoses: 555.2 Crohn's [...] Attending:Dr. Lenny Calhoun MD (Fellow)/pager: Dr. Vang [phone] Medications Procedure Meds: Dilaudid IV 0.5mg Midazolam [...] at referring hospital. She was transferred to [facility] fo r active hemorrhage. Hospital [...] Call team 01/11 for questions: Team Pager [phone] Angeles Acevedo MD - 04/26/2014 5:24 AM PST [facility] DEPARTMENT OF SURGERY EGS ICU Progress Note Division of Trauma and Critical Care ID: Mackenzie Hartley is a 58 year old female with COPD, Crohn's disease, chronic pain, and 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 while anticoagulated with warfarin transferre d to [facility] from [facility] for management of retroperitoneal bleed. She [...] while anticoagulated with warfarin transferred to [facility] from [facility] for management of retroperitoneal bleed. Neuro: [...] Hannah MD General Surgery Resident, R3 Pager [phone] [facility] & [address] [place] [address] Nithya Andres MD - 04/25/2014 6:40 AM PSTTSICU Attending 04/25/14 58 yo woman critically ill with complex surgical and medical history, transferred to [facility] w ith intraabdominal and retroperitoneal hemorrhage [...] Call team 01/11 for questions: Team Pager [phone] Angeles Acevedo MD - 04/25/2014 4:39 AM PST [facility] DEPARTMENT OF SURGERY EGS ICU Progress Note Division of Trauma and Critical Care ID: Mackenzie Hartley is a 58 year old female with COPD, Crohn's disease, chronic pain, and 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 while anticoagulated with warfarin transferre d to [facility] from [facility] for management of retroperitoneal bleed. She [...] while anticoagulated with warfarin transferred to [facility] from [facility] for management of retroperitoneal bleed. Neuro: [...] Hannah MD General Surgery Resident, R3 Pager [phone] [facility] & [place] [address] [employer] [address] ich Redding MD - 04/24/2014 9:21 AM [...] extubate Initial surgical contact: Miladis at pager [phone] Nithya Andres MD - 04/24/2014 5:25 AM [...] at referring hospital. IR embolization at [facility]. Hospital Day #1 ICU Day #2 [...] Call team 01/11 for questions: Team Pager [phone] Angeles Acevedo MD - 04/24/2014 2:04 AM PST [facility] DEPARTMENT OF SURGERY EGS Consult Progress Note Division of Trauma and Critical Care ID: Mackenzie aHrtley is a 58 year old female with COPD, Crohn's disease, chronic pain, and 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 while anticoagulated with warfarin transferre d to [facility] from [facility] for management of retroperitoneal bleed. She [...] while anticoagulated with warfarin transferred to [facility] from [facility] for management of retroperitoneal bleed. 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 | [address] | [place] [address] | | | SERVICESJANELL | [address] [...] MARILYN | [address] | [place], [place] | | | [facility] [facility] | [facility] | [address] | | | TESTS | | | [...] [facility] | [address] | [place] [address] | | | SERVICES, CORE | PARK [...] [facility] | [address] | [place] [address] | | | SERVICES, CORE | BERTRAM [...] | | | LABORATORY | | | [facility]H | | | SERVICES, | | | [...] | + + + + + | [facility] | [address] | [place] [address] | | | SERVICES, CORE | BERTRAM [...] MARQUAM | [address] | [place], [place] | | | [facility]ARE | [address] | [address] | | | TESTS | | | [...] - [facility] | [address] | [place], [place] | | | [facility]ARE | [address] | [address] | | | TESTS | | | [...] [facility] | [address] | [place] [address] | | | SERVICES, CORE | BERTRAM [...] | 1.8 - 2.5 mg/dL | [facility] | | | JFMA | | [...] + + + + + | [facility] | [address] | [place] [address] | | | SERVICES, CORE | PARK [...] | | | LABORATORY | | | KAZAKH | | | SERVICES, | | | [...] MDRD equation recommended by the | [facility] | | National Kidney Disease Education [...] + + + + + | [facility] | [address] | [place] [address] | | | JANELL SHARP | [address] [...] + + + + + | [facility] | [address] | [place] [address] | | | SERVICES, JANELL | [address] [...] MARILYN | [address] | [place], [place] | | | [place] | [facility] | [address] | | | TESTS | | | [...] | 60 - 99 mg/dL | [facility] - | | | GLUCOSE, | [...] SANDERS | [address] | [place], [place] | | | [facility] POINT OF CARE | [address] | [address] | | | TESTS | | | [...] + + + + + | [facility] | [address] | [place] [address] | | | SERVICES, CORE [...] | + + + + + | [facility] | [address] | [place] [address] | | | SERVICES, CORE | BERTRAM [...] | | | LABORATORY | | | KAZAKH | | | SERVICES, | | | [...] MDRD equation recommended by the | [facility] | | National Kidney Disease Education [...] + + + + + | [facility] | [address] | [place] [address] | | | SERVICES, CORE | PARK [...] mech. valves (2.5 - 3.5) INR | JAENLL SHARP | + + + + + + + + | Performing | Address | City/State/Zipcode | Phone Number | | Organization | | | | + + + + + | [facility] | [address] | [place] [address] | | | SERVICESJANELL | [address] [...] - MARQU[facility] | [address] | [place], [place] | | | [facility] [place] CARE | [address] | [address] | | | TESTS | | | [...] SANDERS | [address] | [place], [place] | | | [place] | [address] | [address] | | | TESTS | | | [...] | + +---------+ + + | [facility] DEPARTMENT OF | | | | [...] MARQUAM | [address] | [place], [place] | | | [facility]INT OF CARE | [address] | [address] | | | TESTS | | | [...] - DAVIDAM | [address] | [place], [place] | | | [facility] CARE | [address] | [address] | | | TESTS | | | [...] [facility] | [address] | [place] [address] | | | SERVICES, CORE | PARK [...] | 1.8 - 2.5 mg/dL | [facility] | | | LASMA | | [...] [facility] | [address] | [place] [address] | | | SERVICES, CORE | PARK [...] | | | LABORATORY | | | KAZAKH | | | SERVICES, | | | [...] MDRD equation recommended by the | [facility] | | National Kidney Disease Education [...] + + + + + | [facility] | [address] | [place] [address] | | | JANELL SHARP | [address] [...] + + + + + | [facility] | [address] | [place] [address] | | | SERVICES, JANELL | BERTRAM [...] MARILYN | [address] | [place], [place] | | | [facility] | [facility] | [address] | | | TESTS | | | [...] | 60 - 99 mg/dL | [facility] - | | | GLUCOSE, | [...] SANDERS | [address] | [place], [place] | | | [place] | [facility] | [address] | | | TESTS | | | [...] MARILYN | [address] | [place], [place] | | | [place] | [address] | [address] | | | TESTS | | | [...] | + + + + + | [facility] | [address] | [place] [address] | | | SERVICES, CORE | BERTRAM [...] [facility] | [address] | [place] [address] | | | JANELL SHARP | [address] [...] | | | LABORATORY | | | KAZAKH | | | SERVICES, | | | [...] [facility] | [address] | [place] [address] | | | SERVICES, CORE | PARK [...] + + + + + | [facility] | [address] | [place] [address] | | | SERVICES, CORE | BERTRAM [...] | 60 - 99 mg/dL | [facility] - | | | GLUCOSE, | [...] SANDERS | [address] | [place], [place] | | | [place] | [address] | [address] | | | TESTS | | | [...] MARQUAM | [address] | [place], [place] | | | [facility] POINT OF CARE | [address] | [address] | | | TESTS | | | [...] | + + + + + | [facility] | [address] | [place] [address] | | | SERVICES, CORE | BERTRAM [...] [facility] | [address] | [place] [address] | | | SERVICES, CORE | BERTRAM [...] | | | LABORATORY | | | KAZAKH | | | SERVICES, | | | [...] | + + + + + | [facility] | [address] | [place] [address] | | | SERVICES, CORE | BERTRAM [...] | + + + + + | [facility] | [address] | [place] [address] | | | SERVICES, CORE | PARK [...] | 60 - 99 mg/dL | [facility] - | | | GLUCOSE, | [...] SANDERS | [address] | [place], [place] | | | [place] | [facility] | [address] | | | TESTS | | | [...] - MARQUAM | [address] | [place], [place] | | | [facility] OF CARE | [facility] | [address] | | | TESTS | | | [...] [facility] | [address] | [place] [address] | | | ARON, CORE | BERTRAM [...] [facility] | [address] | [place] [address] | | | SERVICES, CORE | PARK [...] | | | LABORATORY | | | KAZAKH | | | SERVICES, | | | [...] + + + + + | [facility] | [address] | [place] [address] | | | SERVICES, CORE | BERTRAM [...] | + + + + + | [facility] | [address] | [place] [address] | | | SERVICES, CORE | BERTRAM [...] MARQUAM | [address] | [place], [place] | | | [place] | [address] | [address] | | | TESTS | | | [...] | + + + + + | [facility] | [address] | [place] [address] | | | ARON, JANELL | [address] [...] | 60 - 99 mg/dL | [facility] - | | | GLUCOSE, | [...] SANDERS | [address] | [place], [place] | | | [facility] | [facility] | [address] | | | TESTS | | | [...] MARILYN | [address] | [place], [place] | | | [place] | [address] | [address] | | | TESTS | | | [...] | + + + + + | [facility] | [address] | [place] [address] | | | SERVICES, CORE | BERTRAM [...] [facility] | [address] | [place] [address] | | | ARON, JANELL | PARK [...] | | | LABORATORY | | | KAZAKH | | | SERVICES, | | | [...] [facility] | [address] | [place] [address] | | | SERVICES, CORE | PARK [...] [facility] | [address] | [place] [address] | | | SERVICES, CORE | PARK [...] LABORATORY | [address] | [place] [address] | | | SERVICES, CORE | PARK [...] + + + + + | [facility] | [address] | [place] [address] | | | SERVICES, CORE | BERTRAM [...] [facility] | [address] | [place] [address] | | | SERVICES, CORE | PARK [...] | | | LABORATORY | | | KAZAKH | | | SERVICES, | | | [...] | + + + + + | [facility] | [address] | [place] [address] | | | SERVICES, CORE | PARK [...] | + + + + + | [facility] | [address] | [place] [address] | | | SERVICES, CORE | BERTRAM [...] + + + + | [facility] | [address] | [place] [address] | | | [facility] | Ellen [...] [facility] | [address] | [place] [address] | | | SERVICES, JANELL | PARK [...] [facility] | [address] | [place] [address] | | | SERVICES, CORE | BERTRAM [...] [facility] | [address] | [place] [address] | | | SERVICES, CORE | BERTRAM [...] [facility] | [address] | [place] [address] | | | SERVICES, CORE [...] | | | LABORATORY | | | KAZAKH | | | SERVICES, | | | [...] [facility] | [address] | [place] [address] | | | SERVICES, CORE | PARK [...] | + + + + + | [facility] | [address] | [place] [address] | | | SERVICES, CORE | PARK [...] [facility] | [address] | [place] [address] | | | SERVICES, CORE | PARK [...] | + + + + + | [facility] | [address] | [place] [address] | | | SERVICES, CORE | BERTRAM [...] [facility] | [address] | [place] [address] | | | SERVICES, JANELL | [address] [...] + + + + + | [facility] | [address] | [place] [address] | | | SERVICES, JANELL | BERTRAM [...] [facility] | [address] | [place], [place] | | | [facility] | [address] | [address] | | | TESTS | | | [...] + + + + + | [facility] | [address] | [place] [address] | | | SERVICES, CORE | PARK [...] + + + + + | [facility] | [address] | [place] [address] | | | SERVICES, CORE | PARK [...] | | | LABORATORY | | | K[facility]AKH | | | SERVICES, | | | [...] | + + + + + | [facility] | [address] | [place] [address] | | | SERVICES, CORE | [...] | + + + + + | [facility] | [address] | [place] [address] | | | SERVICES, CORE | PARK [...] [facility] | [address] | [place] [address] | | | JANELL SHARP | PARK [...] | | | LABORATORY | | | KAZAKH | | | SERVICES, | | | [...] [facility] | [address] | [place] [address] | | | SERVICES, CORE | PARK [...] | | | LABORATORY | | | KAZAKH | | | SERVICES, | | | [...] + + + + + | [facility] | [address] | [place] [address] | | | JANELL SHARP | [address] [...] [facility] | [address] | [place], [place] | | | THERAPY | [facility] | [address] | | + + + + + [...] [facility] | [address] | [place], [place] | | | THERAPY | [address] | [address] | | + + + + + [...] [facility] | [address] | [place] [address] | | | SERVICES, CORE | PARK [...] | + + + + + | [facility] | [address] | [place] [address] | | | SERVICES, CORE | BERTRAM [...] + | [facility] | [address] | [place] [address] | | | SERVICES, JANELL | BERTRAM [...] | | | LABORATORY | | | K[facility] | | | SERVICES, | | | [...] | + + + + + | [facility] | [address] | [place] [address] | | | SERVICES, CORE | PARK [...] | + + + + + | [facility] | [address] | [place] [address] | | | SERVICES, CORE | BERTRAM [...] [facility]PT [facility] | [address] | [place], [place] | | | CARDIOLOGY | [address] | [address] | | + + + + + X-RAY PORTABLE CHEST 1 VIEW (05/02/2014 2:11 AM PST) + + + + + + | Component | Value | Ref Range | Performed | Pathologist | | | | | At | Signature | + + + + + + | X-RAY | EXAM: PA CHEST 1 VIEW | | | | [...] | + +---------+ + + | [facility] DEPARTMENT OF | | | | [...] + + + + + | [facility] | [address] | [place] [address] | | | SERVICES, CORE | BERTRAM [...] SANDERS | [address] | [place], [place] | | | [place] | [address] | [address] | | | TESTS | | | [...] [facility] | [address] | [place], [place] | | | [facility] [place] | [facility] | [address] | | | TESTS | | | [...] | + + + + + | [facility] | [address] | [place] [address] | | | SERVICES, CORE | [address] | | | + + + + + X-RAY PORTABLE CHEST 1 VIEW (05/01/2014 3:37 AM PST) + + + + + + | Component | Value | Ref Range | Performed | Pathologist | | | | | At | Signature | + + + + + + | X-RAY | EXAM: PA CHEST 1 VIEW | | | | [...] Bilateral | | | | | | [id number] | | | | | | pleural [...] + + + + + | [facility] | [address] | [place] [address] | | | SERVICES, CORE | PARK [...] | + + + + + | [facility] | [address] | [place] [address] | | | SERVICES, JANELL | [address] [...] | | | LABORATORY | | | [facility] | | | SERVICES, | | | [...] MDRD equation recommended by the | [facility] | | National Kidney Disease Education [...] + + + + + | [facility] | [address] | [place] [address] | | | SERVICES, CORE | [address] | | | + + + + + INR (05/01/2014 2:45 AM PST) + +-------+ + + + | Component | Value | Ref Range | Performed | Pathologist | | | | | At | Signature | + +-------+ + + + | INR | 1.14 | 0.90 - 1.20 INR | [facility] | | | | | | LABORATORY [...] + + | [facility] | [address] | [place] [address] | | | JANELL SHARP | BERTRAM [...] [facility] | [address] | [place], [place] | | | [facility] CARE | [address] | [address] | | | TESTS | | | [...] | + +---------+ + + | [facility] DEPARTMENT OF | | | | [...] + + + | X-RAY | STUDY: PA CHEST 1 VIEW | | | | [...] + + + + + | [facility] | [address] | [place] [address] | | | SERVICES, CORE | PARK [...] + + + + + | [facility] | [address] | [place] [address] | | | SERVICES, JANELL | BERTRAM [...] [facility] | [address] | [place] [address] | | | SERVICES, CORE | [address]ERTR[address] [...] | | | LABORATORY | | | [facility] | | | SERVICES, | | | [...] | + + + + + | [facility] | [address] | [place] [address] | | | SERVICES, CORE | BERTR[address] [...] | | | LABORATORY | | | [facility] | | | SERVICES, | | | [...] + + + + + | [facility] | [address] | [place] [address] | | | ARON, JANELL | BERTRAM [...] [facility] | [address] | [place], [place] | | | [facility] [place] [facility] | [facility] | [address] | | | TESTS | | | [...] [facility] | [address] | [place] [address] | | | SERVICES, CORE | PARK [...] [facility] | [address] | [place] [address] | | | SERVICES, CORE | PARK [...] | | | LABORATORY | | | [facility] | | | SERVICES, | | | [...] | + + + + + | [facility] | [address] | [place] [address] | | | SERVICES, CORE | [address] [...] + + + + + | [facility] | [address] | [place] [address] | | | SERVICES, JANELL | [address] [...] | + + + + + | [facility] | [address] | [place] [address] | | | [facility], JANELL | [address] | [...] | 60 - 99 mg/dL | [facility] - | | | GLUCOSE, | [...] [facility] | [address] | [place], [place] | | | [place] | [facility] | [address] | | | TESTS | | | [...] [facility] | [address] | [place] [address] | | | SERVICES, CORE | PARK [...] [facility] | [address] | [place] [address] | | | SERVICES, CORE | PARK [...] [facility] | [address] | [place] [address] | | | SERVICES, CORE | PARK [...] [facility] | [address] | [place] [address] | | | SERVICES, CORE | PARK [...] | | | LABORATORY | | | [facility] | | | SERVICES, | | | [...] | + + + + + | [facility] | [address] | [place] [address] | | | SERVICES, CORE | [address] [...] | + + + + + | [facility] | [address] | [place] [address] | | | ARON, CORE | [address] [...] + + + + + | [facility] | [address] | [place] [address] | | | JANELL SHARP | BERTRAM [...] | + +---------+ + + | [facility] DEPARTMENT OF | | | | [...] | + + + + + | [facility] | [address] | [place] [address] | | | SERVICES, CORE | BERTRAM [...] [facility] | [address] | [place], [place] | | | [facility] | [facility] | [address] | | | TESTS | | | | + + + + + X-RAY ABD LTD FEEDING TUBE EVAL PORTABLE (04/27/2014 10:33 AM PST) + + + + + + | Component | Value | Ref Range | Performed | Pathologist | | | | | At | Signature | + + + + + + | X-RAY ABD | STUDY: PA ABD LTD | | | | | [...] | + + + + + | [facility] | [address] | [place] [address] | | | SERVICES, CORE | BERTRAM [...] | + + + + + | [facility] | [address] | [place] [address] | | | JANELL SHARP | BERTRAM [...] | + + + + + | [facility] | [address] | [place] [address] | | | SERVICES, CORE | BERTRAM [...] [facility] | [address] | [place] [address] | | | SERVICES, CORE | PARK [...] | | | LABORATORY | | | [facility] | | | SERVICES, | | | [...] + + | [facility] | [address] | [place] [address] | | | SERVICES, CORE | BERTRAM [...] [facility] | [address] | [place] [address] | | | SERVICES, JANELL | [address] [...] | + + + + + | [facility] | [address] | [place] [address] | | | SERVICES, CORE | [address] [...] | + + + + + | [facility] | [address] | [place] [address] | | | SERVICES, CORE | PARK [...] | + + + + + | [facility] | [address] | [place] [address] | | | SERVICES, CORE | [address] | | | + + + + + MAGNESIUM, PLASMA (04/26/2014 7:41 PM PST) + +-------+ + + + | Component | Value | Ref Range | Performed | Pathologist | | | | | At | Signature | + +-------+ + + + | MAGNESIUM,P | 2.0 | 1.8 - 2.5 mg/dL | [facility] [...] + + + + + | [facility] | [address] | [place] [address] | | | SERVICES, CORE | PARK [...] | | | LABORATORY | | | [facility] | | | SERVICES, | | | [...] | + + + + + | [facility] | [address] | [place] [address] | | | SERVICES, JANELL | [address] [...] PRIMARY | | | | | | VALIDATION LEADER: Rudy | | | | | | [...] [facility] | [address] | [place], [place] | | | [facility]INT OF CARE | [address] | [address] | | | TESTS | | | [...] | + + + + + | [facility] | [address] | [place] [address] | | | SERVICES, CORE | BERTRAM [...] | | | | | | Kirstie Stanley | | | | + + + [...] [facility] | [address] | [place] [address] | | | SERVICES, JANELL | [address] [...] [facility] | [address] | [place] [address] | | | SERVICES, CORE | [address] [...] | + + + + + | [facility] | [address] | [place] [address] | | | SERVICES, CORE | [address] [...] | + + + + + | [facility] | [address] | [place] [address] | | | SERVICES, CORE | PARK [...] [facility] | [address] | [place] [address] | | | SERVICES, CORE | PARK [...] | | | LABORATORY | | | [facility] | | | SERVICES, | | | [...] + + + + + | [facility] | [address] | [place] [address] | | | ARON, JANELL | [address] [...] [facility] | [address] | [place] [address] | | | SERVICES, CORE | PARK [...] + + + + + | [facility] | [address] | [place] [address] | | | JANELL SHARP | PARK [...] - [facility] | [address] | [place], [place] | | | [place] [facility] | [address] | [address] | | | TESTS | | | [...] | | | LABORATORY | | | [facility] | | | SERVICES, | | | [...] | + + + + + | [facility] | [address] [facility] [facility] [address] | [place] [address] | | | JANELL SHARP | [address] [...] [facility] | [address] | [place], [place] | | | OSCAR POINT OF CARE | [address] | [address] | | | TESTS | | | [...] [facility] | [address] | [place] [address] | | | SERVICES, CORE | [address]TRAM [...] | + + + + + | [facility] | [address] | [place] [address] | | | SERVICES, CORE | [address] [...] + + + + | PRODUCT | [id number] | | [facility] | | | UNIT [...] + + + + | BLOOD | [id number] | | [facility] | | | PRODUCT [...] DEPARTMENT OF | [address] | [place] [address] | | | PATHOLOGY | [address] [...] + + + + | PRODUCT | [id number] | | [facility] | | | UNIT [...] + + + + | BLOOD | [id number] | | [facility] | | | PRODUCT [...] + + + + + | [facility] | [address] | [place] [address] | | | PATHOLOGY | [address] [...] | + + + + + | [facility] | [address] | [place] [address] | | | SERVICES, CORE | PARK [...] | + + + + + | [facility] | [address] | [place] [address] | | | SERVICES, CORE | [address] [...] | | | LABORATORY | | | [facility] | | | SERVICES, | | | [...] MDRD equation recommended by the | [facility] | | National Kidney Disease Education [...] + + + + + | [facility] | [address] | [place] [address] | | | JANELL SHARP | [address] [...] [facility] | [address] | [place] [address] | | | SERVICES, CORE | PARK [...] [facility] | [address] | [place] [address] | | | SERVICES, CORE | PARK [...] [facility] | [address] | [place] [address] | | | SERVICES, CORE | PARK [...] + + + + + | [facility] | [address] | [place] [address] | | | SERVICES, JANELL | BERTRAM [...] MAR[facility] | [address] | [place], [place] | | | PEPE [facility] OF CARE | [facility] | [address] | | | TESTS | | | [...] + + + | [facility] | [address] | [place], [place] | | | PPEE MOORE OF [facility] | [address] | [address] | | | TESTS | | | [...] + + + + + | [facility] | [address] | [place] [address] | | | SERVICES, CORE | PARK [...] | + + + + + | [facility] | [address] | [place] [address] | | | JANELL SHARP | BERTRAM [...] + + + + + | [facility] | [address] | [place] [address] | | | SERVICES, CORE | PARK [...] + + + + + | [facility] | [address] | [place] [address] | | | JANELL SHARP | [address] | | | + + + + + X-RAY PORTABLE CHEST 1 VIEW (04/24/2014 5:32 AM PST) + + + + + + | Component | Value | Ref Range | Performed | Pathologist | | | | | At | Signature | + + + + + + | X-RAY | STUDY: PA CHEST 1 VIEW | | | | [...] | + +---------+ + + | [facility] | | | | [...] | + + + + + | [facility] | [address] | [place] [address] | | | SERVICES, JANELL | BERTRAM [...] | | | LABORATORY | | | [facility] | | | SERVICES, | | | [...] + + + + + | [facility] | [address] | [place] [address] | | | SERVICES, CORE | PARK [...] | + + + + + | [facility] | [address] | [place] [address] | | | SERVICES, CORE | PARK [...] | + + + + + | [facility] | [address] | [place] [address] | | | SERVICES, CORE | BERTRAM [...] [facility] | [address] | [place], [place] | | | THERAPY | [address] | [address] | | + + + + + [...] + + | [facility] | [address] | [place], [place] | | | THERAPY | [address] | [address] | | + + + + + [...] | | | LABORATORY | | | [facility] | | | SERVICES, | | | [...] the MDRD equation recommended by the | [facility] | | National Kidney Disease Education Program. [...] + + + + + | [facility] | [address] | [place] [address] | | | JANELL SHARP | BERTRAM [...] LABORATORY | [address] | [place] [address] | | | SERVICES, CORE | PARK [...] | + + + + + | [facility] | [address] | [place] [address] | | | SERVICES, CORE | BERTRAM [...] (L) | 36.0 - 46.0 % | [facility] | | | | | | LABORATORY [...] + + + + + | [facility] | [address] | [place] [address] | | | SERVICES, CORE | PARK [...] | + + + + + | [facility] | [address] | [place] [address] | | | SERVICES, CORE | BERTRAM [...] [facility] | [address] | [place] [address] | | | SERVICES, CORE | PARK [...] [facility] | [address] | [place] [address] | | | SERVICES, CORE | PARK [...] | | | LABORATORY | | | [facility] | | | SERVICES, | | | [...] | + + + + + | [facility] | [address] | [place] [address] | | | SERVICES, CORE | BERTRAM [...] + + + + + | [facility] | [address] | [place] [address] | | | ARON, JANELL | BERTRAM [...] [facility] | [address] | [place], [place] | | | [facility] [place] [facility] | [facility] | [address] | | | TESTS | | | [...] PRIMARY | | | | | | VALIDATION LEADER: Rudy | | | | | | [...] 5 | | | | | | Kuwaiti vascular sheath | | | | | [...] | | | | for a 5 Kuwaiti | | | | | | IMAcatheter. [...] | | | | artery. A 3 Kuwaiti | | | | | | microcatheterwas [...] + + | [facility] | [address] | [place], [place] | | | CARDIOLOGY | [address] | [address] | | + + + + + [...] + + + + | PRODUCT | [id number] | | [facility] | | | UNIT [...] + + + + | BLOOD | [id number] | | [facility] | | | PRODUCT [...] [facility] | [address] | [place] [address] | | | PATHOLOGY | [address] [...] + + + + | PRODUCT | [id number] | | [facility] | | | UNIT [...] + + + + | BLOOD | [id number] | | [facility] | | | PRODUCT [...] | + + + + + | [facility] | [address] | [place] [address] | | | PATHOLOGY | [address] [...] + + + + | PRODUCT | [id number] | | [facility] | | | UNIT [...] + + + + | BLOOD | [id number] | | [facility] | | | PRODUCT [...] [facility] | [address] | [place] [address] | | | PATHOLOGY | [address] [...] + + + + | PRODUCT | [id number] | | [facility] | | | UNIT [...] + + + + | BLOOD | [id number] | | [facility] | | | PRODUCT [...] + + + + + | [facility] | [address] | [place] [address] | | | PATHOLOGY | [address] [...] + + + + | PRODUCT | [id number] | | [facility] | | | UNIT [...] + + + + | BLOOD | [id number] | | [facility] | | | PRODUCT [...] + + + + + | [facility] | [address] | [place] [address] | | | PATHOLOGY | [address] [...] + + + + | PRODUCT | [id number] | | [facility] | | | UNIT [...] + + + + | BLOOD | [id number] | | [facility] | | | PRODUCT [...] + + + + + | [facility] | [address] | [place] [address] | | | PATHOLOGY | [address] | | | + + + + + X-RAY PORTABLE CHEST 1 VIEW (04/23/2014 11:41 AM PST) + + + + + + | Component | Value | Ref Range | Performed | Pathologist | | | | | At | Signature | + + + + + + | X-RAY | EXAM: PA CHEST 1 VIEW | | | | [...] + + + + | PRODUCT | [id number] | | [facility] | | | UNIT [...] + + + + | BLOOD | [id number] | | [facility] | | | PRODUCT [...] DEPARTMENT OF | [address] | [place] [address] | | | PATHOLOGY | [address] [...] + + + + | PRODUCT | [id number] | | [facility] | | | UNIT [...] + + + + | BLOOD | [id number] | | [facility] | | | PRODUCT [...] + + + + + | [facility] | [address] | [place] [address] | | | PATHOLOGY | [address] [...] + + + + | PRODUCT | [id number] | | [facility] | | | UNIT [...] + + + + | BLOOD | [id number] | | [facility] | | | PRODUCT [...] + + + + + | [facility] | [address] | [place] [address] | | | PATHOLOGY | [address] [...] + + + + | PRODUCT | [id number] | | [facility] | | | UNIT [...] + + + + | BLOOD | [id number] | | [facility] | | | PRODUCT [...] | + + + + + | [facility] | [address] | [place] [address] | | | PATHOLOGY | [address] [...] + + + + | PRODUCT | [id number] | | [facility] | | | UNIT [...] + + + + | BLOOD | [id number] | | [facility] | | | PRODUCT [...] [facility] | [address] | [place] [address] | | | PATHOLOGY | [address] [...] + + + + | PRODUCT | [id number] | | [facility] | | | UNIT [...] + + + + | BLOOD | [id number] | | [facility] | | | PRODUCT [...] | + + + + + | [facility] | [address] | [place] [address] | | | PATHOLOGY | [address] [...] + + + + | PRODUCT | [id number] | | [facility] | | | UNIT [...] + + + + | BLOOD | [id number] | | [facility] | | | PRODUCT [...] [facility] | [address] | [place] [address] | | | PATHOLOGY | [address] [...] + + + + | PRODUCT | [id number] | | [facility] | | | UNIT [...] + + + + | BLOOD | [id number] | | [facility] | | | PRODUCT [...] | + + + + + | [facility] | [address] | [place] [address] | | | PATHOLOGY | [address] [...] + + + + | PRODUCT | [id number] | | [facility] | | | UNIT [...] + + + + | BLOOD | [id number] | | [facility] | | | PRODUCT [...] [facility] | [address] | [place] [address] | | | PATHOLOGY | [address] [...] + + + + | PRODUCT | [id number] | | [facility] | | | UNIT [...] + + + + | BLOOD | [id number] | | [facility] | | | PRODUCT [...] | + + + + + | [facility] | [address] | [place] [address] | | | PATHOLOGY | [address] [...] + + + + | PRODUCT | [id number] | | [facility] | | | UNIT [...] + + + + | BLOOD | [id number] | | [facility] | | | PRODUCT [...] [facility] | [address] | [place] [address] | | | PATHOLOGY | [address] [...] + + + + | PRODUCT | [id number] | | [facility] | | | UNIT [...] + + + + | BLOOD | [id number] | | [facility] | | | PRODUCT [...] + + + + + | [facility] | [address] | [place] [address] | | | PATHOLOGY | [address] [...] + + + + | PRODUCT | [id number] | | [facility] | | | UNIT [...] + + + + | BLOOD | [id number] | | [facility] | | | PRODUCT [...] [facility] | [address] | [place] [address] | | | PATHOLOGY | [address] [...] + + + + | PRODUCT | [id number] | | [facility] | | | UNIT [...] + + + + | BLOOD | [id number] | | [facility] | | | PRODUCT [...] | + + + + + | [facility] | [address] | [place] [address] | | | PATHOLOGY | [address] [...] [facility] | [address] | [place] [address] | | | SERVICES, CORE | PARK [...] [facility] | [address] | [place] [address] | | | SERVICES, CORE | PARK [...] most patients with mech. valves (2.5 | [facility], CORE | | - 3.5) INR APTT Therapeutic Range: | | | (75 - 120) sec Heparin levels of 0.35 - 0.7 U/mL | | + + + + + + + + | Performing | Address | City/State/Zipcode | Phone Number | | Organization | | | | + + + + + | [facility] | [address] | [place] [address] | | | JANELL SHARP | [address] [...] | | | LABORATORY | | | [facility] | | | SERVICES, | | | [...] [facility] | [address] | [place] [address] | | | SERVICES, CORE | PARK [...] [facility] | [address] | [place] [address] | | | SERVICES, CORE | PARK [...] [facility] | [address] | [place] [address] | | | SERVICES, CORE | PARK [...] + + + + + | [facility] | [address] | [place] [address] | | | JANELL SHARP | [address] [...] | 60 - 99 mg/dL | [facility] - | | | GLUCOSE, | [...] [facility] | [address] | [place], [place] | | | OSCAR POINT OF CARE | [address] | [address] | | | TESTS | | | [...] | + + + + + | [facility] | [address] | [place] [address] | | | ARON, | [address] [...] + + + + + | [facility] | [address] | [place] [address] | | | SERVICES, | [address] [...] + + + + | PRODUCT | [id number] | | [facility] | | | UNIT [...] + + + + | BLOOD | [id number] | | [facility] | | | PRODUCT [...] | + + + + + | [facility] | [address] | [place] [address] | | | PATHOLOGY | [address] [...] + + + + | PRODUCT | [id number] | | [facility] | | | UNIT [...] + + + + | BLOOD | [id number] | | [facility] | | | PRODUCT [...] DEPARTMENT OF | [address] | [place] [address] | | | PATHOLOGY | [address] [...] + + + + | PRODUCT | [id number] | | [facility] | | | UNIT [...] + + + + | BLOOD | [id number] | | [facility] | | | PRODUCT [...] | + + + + + | [facility] | [address] | [place] [address] | | | PATHOLOGY | [address] [...] + + + + | PRODUCT | [id number] | | [facility] | | | UNIT [...] + + + + | BLOOD | [id number] | | [facility] | | | PRODUCT [...] DEPARTMENT OF | [address] | [place] [address] | | | PATHOLOGY | [address] [...] + + + + | PRODUCT | [id number] | | [facility] | | | UNIT [...] + + + + | BLOOD | [id number] | | [facility] | | | PRODUCT [...] | + + + + + | [facility] | [address] | [place] [address] | | | PATHOLOGY | [address] [...] + + + + | PRODUCT | [id number] | | [facility] | | | UNIT [...] + + + + | BLOOD | [id number] | | [facility] | | | PRODUCT [...] OF | [address] | [place] [address] | | | PATHOLOGY | [address] [...]
[~2019-03-09 02:03] MED LIST changes: +CULTURELLE1 EAC1 PO; +WARFARIN SODIUM1 MG PO
--- NOTE | 2019-03-09 08:15 | NUR ---
PTS INITIAL CASE MANAGEMENT ASSESSMENT COMPLETE. PT DENIES NEEDS AT HOME.
--- NOTE | 2019-03-09 08:15 | NUR ---
PATIENT ARRIVED TO CRITICAL CARE ROOM 129 WITH THE ENDLESS BED DRUM SANDER VIA STRETCHER. PATIENT WAS ABLE TO TRANSFER FROM STRETCH TO BED ON HER OWN. PATIENT HAS A MEEHAN ON ARRIVAL. PORT ACCESSED. PATIENT IS ALERT BUT CONFUSED AT TIMES. WILL CONTINUE TO CLOSELY MONITOR.
--- NOTE | 2019-03-09 10:00 | NUR ---
PATIENT REQUESTED PRN PAIN MEDICATION FOR HEADACHE, HEAD PAIN, AND GENERALIZED PAIN. GAVE PRN OXYCODONE AND TYLENOL. PER MD REHMAN REMOVE URINARY CATHETER. BREAKFAST AT THE BEDSIDE. WILL CONTINUE TO CLOSELY MONITOR.
--- NOTE | 2019-03-09 10:49 | NUR ---
PATIENT RESTING IN BED AT THIS TIME SLEEPING. PATIENT STATES SHE HASNT BEEN SLEEPING WELL. PATIENTS PAIN IS BETTER SINCE PRN PAIN MEDICATION. BED ALARM ON FOR PATIENTS SAFETY. WILL CONTINUE TO CLOSELY MONITOR.
--- NOTE | 2019-03-09 13:00 | NUR ---
PATIENT RESTING IN BED. LUNCH ORDERED. PATIENT SITTING UP IN BED. LABS DONE. PATIENT COLOSTOMY BAG LEAKED. CLEANED UP SITE. PATIENT REQUESTED TO HAVE HER COME CHANGE COLOSTOMY SITE. MEEHAN CATHETER REMOVED. PATIENT TOLERATED WELL. ATTENDS PLACED D/T PATIENT BEING INCONT. OF URINE. NO OTHER NEEDS AT THIS TIME. CALL LIGHT IN REACH. PATIENT STATES "I FEEL BETTER THAN YESTERDAY". WILL CONTINUE TO CLOSELY MONITOR.
--- NOTE | 2019-03-09 14:20 | NUR ---
PATIENTS IN AROUND 1330 AND CHANGED HER COLOSOTMY BAG. STAFF OFFERED TO CHANGE IT FOR HER BUT PATIENT STATED, "I WOULD PREFER MY DO IT FOR ME, HE HAS BEEN DOING IT FOR 2 YEARS AND KNOWS HOW TO DO IT THE BEST". PATIENT FINISHED EATING LUNCH AND REQUESTING PRN PAIN MEDICATION AND PHENERGAN. GAVE PRN TYLENOL FOR A HEADACHE AND PHENERGAN. NO OTHER NEEDS AT THIS TIME. WILL CONTINUE TO CLOSELY MONITOR.
--- NOTE | 2019-03-09 15:02 | NUR ---
MED REC COMPLETE
--- NOTE | 2019-03-09 16:30 | NUR ---
IN TO UPDATE PATIENT THAT SHE WILL BE TRANSFERED TO [facility]. PATIENT IS AGREEABLE TO PLAN OF CARE. FRESH WATER AT THE BEDSIDE. PATIENTS VITALS HAVE SLOWLY IMPROVED THROUGHOUT THE DAY. WILL ORDER DINNER. PATIENT DENIES ANY OTHER NEEDS AT THIS TIME.
--- NOTE | 2019-03-09 17:10 | NUR ---
PATIENT REPORT GIVEN TO DULCE LAL. PATIENT RESTING IN BED. PATIENT ATTENDS CHANGED AND NOTED TO BE SATURATED. ALL BELONGINGS GATHERED AND PATIENT TRANSFERED TO ROOM 123 IN THE BED. PATIENT DENIES ANY FURTHER QUESTIONS AT THIS TIME. WILL CONTINUE TO CLOSELY MONITOR.
--- NOTE | 2019-03-09 17:36 | NUR ---
PT ARRIVED TO FLOOR VIA HOSPITAL BED. PT IS DROWSY BUT AWAKES TO VERBAL STIMULI. REPORTS PAIN 4/10 TOLERABLE AT THIS TIME. ABX INFUSING. ORIENTED TO ROOM. WATER REFRESHED. DENIES NEEDS. CALL LIGHT IN REACH.
--- NOTE | 2019-03-09 18:04 | NUR ---
PATIENT RESTING IN BED. VITAL SIGNS AND I&O DONE. CALL LIGHT WITHIN REACH. NO OTHER NEEDS AT THIS TIME
--- NOTE | 2019-03-09 19:00 | NUR ---
SHIFT REPORT RECEIVED FROM [facility] LUKASZ CARDONA AT BEDSIDE. PT RESTING IN BED, CALL LIGHT IN REACH. IV FLUIDS INFUSING AT 100MLS/HR. NO DISTRESS NOTED, RR WNL. NO NEEDS VERBALIZED AT THIS TIME, WHITE BOARD UPDATED.
--- NOTE | 2019-03-09 19:16 | NUR ---
PT REPORTING 11/18 PIAN IN "JOINTS". PRN OXYCODONE ADMINISTERED. ATE 25% OF DINNER. DENEIS NAUSEA. CALL LIGHT IN REACH.
--- NOTE | 2019-03-09 20:00 | NUR ---
PT RESTING IN BED, EYES CLOSED. RR WNL, NO SIGNS OF PAIN, NAUSEA, OR DISTRESS NOTED AT THIS TIME. IV FLUIDS INFUSING AT 100MLS/HR. CALL LIGHT IN REACH.
--- NOTE | 2019-03-09 21:15 | NUR ---
PT RESTING IN BED AND WATCHING TELEVISION, PT DENIES NEEDS AT THIS TIME. CALL LIGHT IN REACH.
--- NOTE | 2019-03-09 21:50 | NUR ---
ASSESSMENT COMPLETE, SCHEDULED MEDS GIVEN (SEE EMAR). VSS, PRN PHENERGEN GIVEN FOR NAUSEA PER PT REQUEST. IV SITE TO RIGHT FOREARM INFILTRATED, OFFICE CLERK ASSISTANT NICHELLE IN ROOM FOR SECOND OPINION. PT REPORTS PAIN AT SITE. IV DISCONTINUED BY THIS RN, TIP INTACT, WRAPPED WITH 2X2 AND COBAN. PORT TO LEFT CHEST ALREADY ACCESSED, DISCUSSED WITH OFFICE CLERK ASSISTANT, OKAY TO USE PORT. NO NEED TO NOTIFY MD AT THIS TIME. BLOOD RETURN NOTED TO PORT. DRESSING C/D/I. VS AND I&O'S COLLECTED BY TIMO JULY. NO ADDITIONAL NEEDS, CALL LIGHT IN REACH.
--- NOTE | 2019-03-10 00:05 | NUR ---
PT RESTING IN BED, EYES CLOSED, RESPIRATIONS EVEN AND UNLABORED. NO SIGNS OF DISTRESS NOTED. WILL MONITOR. IV FLUIDS INFUSING PER MD ORDERS, PORT DRESSING REMAINS CDI. CALL LIGHT IN REACH.
--- NOTE | 2019-03-10 01:30 | NUR ---
HELPED PT TO CHANGE HER ATENDS INCONTINENT OF URINE. TEMP TAKEN PER PT REQUEST. 98.5 BEDSIDE TABLE AND CALL LIGHT IN REACH.
--- NOTE | 2019-03-10 02:05 | NUR ---
vs and i&o's collected and stable. no further needs, call light in reach. room tided.
--- NOTE | 2019-03-10 03:30 | NUR ---
PER PT REQUEST, THIS RN WENT IN TO ROUND ON PT ONCE PRN PAIN MEDS WERE AVAILABLE. PT RESTING IN BED, EYES CLOSED, RESPIRATIONS EVEN AND UNLABORED. NO SIGNS OF PAIN OR NAUSEA NOTED AT THIS TIME. WILL MONITOR, CALL LIGHT IN REACH.
--- NOTE | 2019-03-10 04:02 | NUR ---
THIS RN IN ROOM TO ANSWER CALL LIGHT. PRN PAIN MEDICATION (SEE EMAR) GIVEN FOR 8/10 PAIN. ASSESSMENT COMPLETE, NO NEW CHANGES OR CONCERNS. PT SOMEWHAT IRRITABLE WITH ASSESSMENT, BUT FOLLOWS COMMANDS. NO FURTHER NEEDS, CALL LIGHT IN REACH. IV FLUIDS INFUSING AT 100MLS/HR, PORT DRESSING REMAINS CDI.
--- NOTE | 2019-03-10 05:19 | NUR ---
dr servin aware of use of pt's left chest port.
--- NOTE | 2019-03-10 06:24 | NUR ---
scheduled iv abx infusing, port dressing intact. pt incontinent of urine, reji care completed by rn disease management july. i&o's and vs stable. no further needs, call light in reach.
--- NOTE | 2019-03-10 07:40 | NUR ---
REPORT RECEIVED FROM [facility]LE[facility]. LAB CALLED REQUESTING LABS TO BE DRAWN FROM PORT. IV INFUSION STOPPED. PORT FLUSHED, BRISK BLOOD RETURN NOTED. 10ML WASTE. LABS DRAWN AND SENT PER POLICY. PORT FLUSHSED, IV INFUSION RESUMED. PT REPORTS SHE WOULD LIKE HER PAIN MEDICAITON AND "MY PHENEGRANC 25MG NOW PLEASE." PT DENIES OTHER REQUESTS OR COMPLAINTS. CALL LIGHT WITHIN REACH.
--- NOTE | 2019-03-10 08:01 | NUR ---
MORNING ASSESSMENT AND MEDICATION DUE. PT REPORTS 5/10 PAIN AND DENIES NAUSEA BUT STATES "I WANT MY 25 OF PHENEGRAN." SEE MAR FOR MEDICATION GIVEN. ASSESSMENT DONE. OSTOMY, WNL. BOWEL TONES HEARD. DEPENDS WET, MARLENA CARE DONE. REDNESS NOTED TO GLUTEAL CLEFT. BARRIER CREAM APPLIED. PT REPORTS NUMBNESS TO "ALL OF MY LEFT LEG AND MY RIGHT UP TO MY CALF, IT'S NORMAL FOR ME, BECAUSE OF SURGERY." MORNING CARE DONE. NO ADDITIONAL REQUESTS OR COMPLAINTS AT THIS TIME. CALL LIGHT WITHIN REACH.
--- NOTE | 2019-03-10 09:19 | NUR ---
PATIENT RESTING IN BED. VITAL SIGNS AND I&O DONE. CALL LIGHT WITHIN REACH. NO OTHER NEEDS AT THIS TIME
--- NOTE | 2019-03-10 09:57 | NUR ---
MEDICATION DUE. PT STATES HER MIGHT BRING IN HER OPIUM BUT "I DONT' NEED IT ANYWAY." PT DECLINES POTASSUM R/T "I MIGHT GET NAUSOUS." EDUCATION DONE. PT AGREES TO TAKE POTASSIUM. PT DENIES NAUSEA. PT REPORTS 6/10 PAIN. PIV ATTEMPTED X2, UNSUCESSFUL. WILL HAVE CHARGE NURSE REATTEMPT FOR MAGNESIUM INFUSION. PT RESTING IN BED. NO ADDITIONAL REQUESTS OR COMPLAINTS. CALL LIGHT WITHIN REACH.
--- NOTE | 2019-03-10 10:37 | NUR ---
PATIENT RESTING IN BED. PATIENT'S ATTEND AND GOWN CHANGED. LINENS CHANGED. CALL LIGHT WITHIN REACH. NO OTHER NEEDS AT THIS TIME
--- NOTE | 2019-03-10 10:58 | NUR ---
ABX INFUSION COMPLETE. PORT ASSESSED, BRISK BLOOD RETURN NOTED. LINE FLUSHED. MAGNEIUM STARTED. NEW FLUID BAG HUNG. PT RESTING ON RIGHT SIDE. NO REQUESTS OR COMPLAINTS. BED RAILS UP. CALL LIGHT WITHIN REACH.
--- NOTE | 2019-03-10 12:22 | NUR ---
NOON ASSESSMENT DUE. PT RESTING IN BED. PT REPORTS HER DEPENDS IS WET. DEPENDS CHANGED. MARLENA CARE DONE. PT REFUSES BARRIER CREAM. EDUCATION DONE, PT CONTINUES TO DECLINE CREAM. ASSESSMENT DONE. BOWEL TONES HEARD. PT REPORTS 7/10 GENERALIZED PAIN. SEE MAR FOR MEDICATION GIVEN. LUNG SOUNDS CLEAR. PT STATES SHE WOULD LIKE TO GO HOME SOON. PT ASSSITED WITH ORDERING LUNCH, REQUESTS JARVIS, AVACADO AND [employer] S[employer]. NO ADDITIONAL REQEUSTS OR COMPLAINTS. CALL LIGHT WITHIN REACH.
--- NOTE | 2019-03-10 12:24 | NUR ---
CALL LIGHT ANSWERED. PATIENT RESTING IN BED. ATTENDS CHANGED. PATIENT'S LUNCH ORDERED. CALL LIGHT WITHIN REACH. NO OTHER NEEDS AT THIS TIME
--- NOTE | 2019-03-10 12:59 | NUR ---
THIS RN TO ROOM WITH MD FOR ROUNDS. PT RESTING WITH EYES CLOSED. PT STATES SHE WOULD LIKE TO GO HOME TODAY. PT UPDATED ON PLAN OF CARE. NO ADDITIONAL REQUESTS OR COMPLAINTS. PT EATING LUNCH. CALL LIGHT WITHIN REACH.
[2019-03-10] MEDS ORDERED: CIPROFLOXACIN500 MG PO (13:05)
--- NOTE | 2019-03-10 13:14 | NUR ---
PATIENT RESTING IN BED. VITAL SIGNS AND I&O DONE. CALL LIGHT WITHIN REACH. NO OTHER NEEDS AT THIS TIME
--- NOTE | 2019-03-10 15:44 | NUR ---
PT READY FOR DISCHARGE. ABX INFUSION COMPLETE. CALLED FOR HEPARIN ORDER REGARDING PORT, PLATELET COUND AND INR. HEPARIN FLUSH ORDER GIVEN. PORT ASSESSED, WNL. BRISK BLOOD RETURN NOTED. VITALS TAKEN. PORT HEAPRIN LOCKED PER PROTOCOL. PORT DEACCESS PER PROCOL. BANDAID DECLINED. DISCHARGE INSTRUCTIONS REVIEWED WITH PT. PT VERBALIZES UNDERSTANDING OF DISCHRAGE INSTRUCTIONS AND STATES HER QUESTIONS HAVE BEEN ANSWERED. PHARAMCIST HAS REVIEWED MEDICATIONS WITH PATIENT. MEDICATIONS GIVEN. PT STATES SHE IS WAITING FOR HER TO ARRIVE. NO ADDITIONAL REQUESTS, COMPLAINTS OR CONCERNS AT THIS TIME. CALL LIGHT WITHIN REACH.
--- NOTE | 2019-03-10 16:05 | NUR ---
PTS ARRIVED. PT DRESSES SELF. PT WHEELED FROM CLINIC. NO ADDITIONAL REQUESTS, QUESTIONS, OR CONCERNS.
--- NOTE | 2019-03-10 22:53 | EKG ---
[facility] [address] [place] [address] Signed Normal sinus rhythm Low voltage QRS Septal infarct , age undetermined Abnormal ECG When compared with ECG of 04-NOV-2017 14:41, Septal infarct is now present Nonspecific T wave abnormality, improved in Inferior leads Nonspecific T wave abnormality, improved in Lateral leads Confirmed by ILYA REHMAN MD ([id number]) on 03/10/2019 10:52:45 PM Electronically Signed By: ILYA REHMAN MD 03/10/19 2253 PATIENT NAME: MACKENZIE HARTLEY Electrocardiogram DATE OF : 55 PHYSICIAN: ILYA REHMAN MD REPORT #: [id number] REPORT IS CONFIDENTIAL AND NOT TO BE RELEASED WITHOUT AUTHORIZATION
== END 2019-03-10 16:04 | disposition home or self-care (01) | DRG 690 ==
LOC: ED 02:03 → CCU 02:04 → MS 17:10 → CCU 17:10 → MS 17:10
PROVIDERS: ADMIT Internal Medicine
DX: N30.00 Acute cystitis without hematuria (principal); K50.913 Crohn's disease, unspecified, with fistula; E83.42 Hypomagnesemia; F17.210 Nicotine dependence, cigarettes, uncomplicated; I10 Essential (primary) hypertension; K21.9 Gastro-esophageal reflux disease without esophagitis; B96.89 Other specified bacterial agents as the cause of diseases classified elsewhere; G89.4 Chronic pain syndrome; Z93.2 Ileostomy status; Z86.718 Personal history of other venous thrombosis and embolism; Z79.891 Long term (current) use of opiate analgesic; Z79.899 Other long term (current) drug therapy; Z79.01 Long term (current) use of anticoagulants; Z88.1 Allergy status to other antibiotic agents; Z88.5 Allergy status to narcotic agent; Z88.0 Allergy status to penicillin; Z88.8 Allergy status to other drugs, medicaments and biological substances
CPT/HCPCS: 51702; 71045; 80048; 80053; 81001; 83605; 83735; 84100; 84484; 85025; 85610; 87040; 87088; 93005; 93010; 99285-25; J0692; J2550; J3475; J7030; J7060; J7121

== ENCOUNTER 2019-11-03 16:06 | Emergency (ER) | payer MEDICARE ==
[~2019-11-03] VITALS: Ht 175.3 cm; Wt 62.1 kg
--- OUTSIDE RECORDS SUMMARY | ~2019-11-03 | XMS | Encounter Summary ---
Demographics + + + | Address | [address] | | | [place] [address] | + + + | Home Phone | | + + + | Preferred Language | Unknown | + + + | Marital Status | | + + + | Sabianist Affiliation | Unknown | + + + | Race | Unknown | + + + | Ethnic Group | Unknown | + + + Author + + + | Author | [facility] | | | and [place] | + + + | Organization | [facility] | | [...] Team Providers + +------+ + | Care Stitch Bonding Machine Tender Name | Role | Phone | + +------+ + PCP | Unavailable | + +------+ + Encounter Details +--------+ + + + + | Date | Type | Department | Care Team | Description | +--------+ + + + + | 04/10/ | Hospital | [facility] | Ro Davidson MD | Pyelonephritis | | 2015 - | Encounter | [facility] | [address] | | | | | CLINICAL DECISION | [place] [address] | | | 07/22/ | | [address] | [phone] | | | 2014 | | [place], [place] | | | | | | [address] | | | | | | [phone] | | | +--------+ + + + [...] + + documented as of this encounter Discharge Summaries Compa Jules MD - 07/22/2014 12:56 PM PDTFormatting of this note might be different from th e original. Discharge Summaries by Compa Jules MD at 07/22/14 0377 Author: Compa Jules MD Service: (none) Author Type: Physician Filed: 08/14/14 1201 Date of Service: 07/22/14 1256 Status: Signed Dovetailer: Compa Jules MD (Physician) Related Notes: Original Note by Compa Jules MD (Physician) filed at 07/22/14 5621 [facility] Service: Hospitalist Physician Discharge Summary Patient ID: Mackenzie Willingham [id number] 58 y.o. 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 HPI and Hospital Course: * 58-year-old female with a past medical history of Crohn disease status post splenectomy on immunosuppressants including chronic prednisone therapy and was on Remicade before who prese nts with recurrent UTI. She was presented at an outside hospital for nausea, vomiting, fever , and leukocytosis of 26. She was transferred here to our facility for further management. H e was treated with vancomycin and aztreonam. Later on blood cultures were negative. Urine cu lture was reviewed from the previous facility and she was also seen by ID in the hospital. S he was treated with stress-dose steroids and later on transitioned to oral. She was continue d on Coumadin for her DVT, and her INR has been therapeutic bridged with Lovenox during the initial few days. Currently stable for discharge, plan as below. 1. Urinary tract infection. Most likely possibility of pyelonephritis. Per recommendation o f ID, will continue with cefdinir for 11 more day for a total of 14-day duration course b.i. d. The patient has received her first dose over here and she has tolerated it pretty well fo r the last 1-1/2 hours. No major reactions. Advised the patient to continue monitoring close ly for any side effects or reactions. 2. For deep venous thrombosis, continue with Coumadin as before. 3. Crohn disease. On chronic prednisone. Resume same. No evidence of adrenal insufficiency at this point. 4. Status post splenectomy. 5. Nausea, abdominal pain. Have been resolved significantly. She is followed up as an outpatient for outpatient PT which will be resumed. She uses a wal ker at home and appears to be at baseline. 6. Systemic inflammatory response syndrome, urinary tract infection. Leukocytosis improving . 7. Chronic congestive heart failure, currently stable. Not decompensated at this point. Primary discharge diagnosis: UTI possible pyelonephritis. Disposition: *Home Follow up: Neel Fernandes MD [address] [place] [address] Raphael Gan DO [address] 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 Personal communication requested for any clarification. Secondary Discharge Diagnoses AND Other Medical History: Past Medical History Diagnosis Date COPD (chronic obstructive pulmonary disease) Crohn's disease Immunocompromised due to corticosteroids Recurrent aphthous ulcer E-coli UTI Hypokalemia Microcytic anemia Neuropathy Hypertension Embolism and thrombosis of splenic artery Other chronic pain GERD (gastroesophageal reflux disease) Osteoporosis Depression Chronic diarrhea Gastroesophageal reflux disease with hiatal hernia Past Surgical History Procedure Laterality Date Abdominal surgery Small intestine surgery Lysis of adhesions Cholecystectomy Appendectomy Hysterectomy Tonsillectomy Portacath placement Left Esophagogastroduodenoscopy N/A 04/21/2014 Procedure: ESOPHAGOGASTRODUODENOSCOPY; Surgeon: Bony Petty MD; Location: [facility] BEDSIDE PROCEDURE; Service: Gastroenterology; Laterality: N/A; Laparotomy N/A 04/23/2014 Procedure: EXPLORATION - LAPAROTOMY; Surgeon: Bogdan Moser DO; Location: [facility] MAIN OR; Service: General; Laterality: N/A; Splenectomy, total N/A 04/23/2014 Procedure: SPLENECTOMY; Surgeon: Bogdan Moser DO; Location: [facility] MAIN OR; Service: General; Laterality: N/A; Discharged Condition: Stable for D/c as dictated above. Significant Diagnostic Studies: X-ray Chest 1 View 07/19/2014 This is a non-reportable procedure without a radiologist report and is used fo image storage only Ultrasound Renal 07/19/2014 [facility] HISTORY: 58 years. Female. Flank pain. BRANDON HNIQUE: Sonographic evaluation of the kidneys and bladder was performed. COMPARISON: 015 CT abdomen FINDINGS: The right kidney measures 10.5 x 6.3 x 4.3 cm. The left kidney yeny sures 9.2 x 5.5 x 5.2cm. The kidneys have a normal cortical echotexture without evidence of hydronephrosis. The pre-void bladder volume is 140cc. Patient refused to void and a post v oid residual was not obtained. The bilateral ureteral jets are visualized. 07/19/2014 1. Unremarkable renal ultrasound. Discharge Vitals: Filed Vitals: 07/21/14 2309 07/22/14 0331 07/22/14 0724 07/22/14 1127 BP: 165/79 170/74 139/71 187/81 Pulse: 60 51 65 59 Temp: 98.2 F (36.8 C) 98.4 F (36.9 C) 98.4 F (36.9 C) 98.5 F (36.9 C) TempSrc: Oral Oral Oral Oral Resp: 16 16 16 16 Height: Weight: 70.444 kg (155 lb 4.8 oz) SpO2: 91% 91% 93% 94% Discharge Exam: General: Well nourished. Psych: Alert and oriented x 3. Calm, cooperative. Cardiovascular: Regular rate and rhythm, no murmurs, no thrills. Normal PMI. Respiratory: Clear to auscultation, no wheezing or crackles, breathing non labored. Gastrointestinal: Soft, non-tender, non-distended, positive bowel sounds. No HSM. Musculoskeletal: No edema in bilateral lower extremities. No joint swelling. Skin: Warm and dry, no rashes. Neck: No JVD, Trachea midline. Neurological: Non focal. Motor grossly intact. LABS: CBC: Lab Results Component Value Date WBC 11.27* 07/22/2014 RBC 4.06 07/22/2014 HGB 12.5 07/22/2014 HGB 10.9* 04/23/2014 HCT 40.1 07/22/2014 HCT 32* 04/23/2014 MCV 98.6 07/22/2014 MCH 30.8 07/22/2014 MCHC 31.2* 07/22/2014 RDW 55.1* 07/22/2014 PLT 309 07/22/2014 MPV 8.7 07/22/2014 DIFFTYPE AUTOMATED 07/22/2014 CMP: Lab Results Component Value Date NA 130* 07/22/2014 K 3.9 07/22/2014 CL 106 07/22/2014 CO2 20* 07/22/2014 ANIONGAP 8 07/22/2014 GLUF 98 07/22/2014 BUN 19 07/22/2014 CREATININE 0.69 07/22/2014 BCR 28 07/22/2014 CA 8.5 07/22/2014 PROT 5.9* 07/22/2014 ALB 2.8* 07/22/2014 GLOB 3.1 07/22/2014 BILITOT 0.4 07/22/2014 ALP 124* 07/22/2014 AST 18 07/22/2014 ALT 13 07/22/2014 EGFR >60 07/22/2014 Albumin: Lab Results Component Value Date ALB 2.8* 07/22/2014 Magnesium: Lab Results Component Value Date MG 1.7 07/22/2014 Phosphorus: Lab Results Component Value Date PHOS 2.7 07/22/2014 PT/INR: Lab Results Component Value Date INR 2.6 07/22/2014 Troponin: Lab Results Component Value Date TROPONINI <0.020 07/20/2014 Last 3 Troponin: Lab Results Component Value Date TROPONINI <0.020 07/20/2014 TROPONINI <0.020 07/20/2014 TROPONINI 2.79* 04/23/2014 TSH: Lab Results Component Value Date TSH 0.39* 04/20/2014 Patient Instructions: Medication List START taking these medications cefdinir 300 MG capsule QTY: 22 capsule Refills: 0 Commonly known as: OMNICEF Take 1 capsule by mouth every 12 (twelve) hours. CONTINUE taking these medications cyanocobalamin 1000 MCG/ML injection Refills: 0 lisinopril 20 MG tablet Refills: 0 Commonly known as: ZESTRIL LORazepam 0.5 MG tablet Refills: 0 Commonly known as: ATIVAN metoprolol 25 MG tablet Refills: 0 Commonly known as: LOPRESSOR morphine 15 MG tablet Refills: 0 Commonly known as: MSIR omeprazole 40 MG capsule Refills: 0 Commonly known as: PRILOSEC oxyCODONE-acetaminophen 7.5-325 MG per tablet Refills: 0 Commonly known as: PERCOCET * potassium chloride SA 15 MEQ tablet Refills: 0 Commonly known as: KLOR-CON M15 * potassium chloride SA 20 MEQ tablet Refills: 0 Commonly known as: K-DUR,KLOR-CON predniSONE 10 MG tablet Refills: 0 Commonly known as: DELTASONE REMICADE 100 MG injection Refills: 0 Generic drug: inFLIXimab tamsulosin 0.4 MG capsule Refills: 0 Commonly known as: FLOMAX warfarin 6 MG tablet Refills: 0 Commonly known as: COUMADIN * Notice: This list has 2 medication(s) that are the same as other medications prescribed for you. Read the directions carefully, and ask your doctor or other care provider to revie w them with you. 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 You may get the following medications from any pharmacy - cefdinir 300 MG capsule Activity: activity as tolerated Diet: Cardiac Diet Discharge took more than 35 minutes, to include final examination, discussion of admission, and preparation of prescriptions, instructions for ongoing care, follow up and dictation of summary. There are no Patient Instructions on file for this visit. Follow-up with PMD and other physicians as directed. Signed: Compa Jules 07/22/2014 12:56 PM documented in this encou nter Medications at Time of Discharge + + [...] Progress Notes Conversion Transaction, Provider Unknown - 07/22/2014 1:35 PM PDTFormatting of this note m ight be different from the original. Nurse Progress Note by Leelee Fermin RN at 07/22/14 3295 Author: Leelee Fermin RN Service: (none) Author Type: Registered Nurse Filed: 07/22/14 1335 Date of Service: 07/22/14 1335 Status: Signed Dovetailer: Leelee Fermin RN (Registered Nurse) Patient received discharge teaching with no questions or concerns. Patient left via private vehicle with daughter. Leelee Fermin RN onver roshan Transaction, Provider Unknown - 07/22/2014 1:06 PM PDT Case Management by Kateryna Salazar RN at 07/22/14 1306 Author: Kateryna Salazar RN Service: (none) Author Type: Registered Nurse Filed: 07/22/14 1307 Date of Service: 07/22/14 1306 Status: Signed Dovetailer: Kateryna Salazar RN (Registered Nurse) Patient requesting to continue with OP/PT, script to chart, patient agreeable with discharg e plan, no additional discharge needs identified. onver roshan Transaction, Provider Unknown - 07/22/2014 11:55 AM PDT Therapy Progress Note by Nadiya Smith PT at 07/22/14 1155 Author: Nadiya Smith PT Service: (none) Author Type: Physical Therapist Filed: 07/22/14 1200 Date of Service: 07/22/14 1155 Status: Signed Dovetailer: Nadiya Smith PT (Physical Therapist) 07/22/14 1155 PT Last Visit PT Received On 07/22/14 Requires PT Follow Up PT eval not indicated (see comments) Other Comments Comments Pt discussed during multidisciplinary rounds. RN/MD report that pt near baseline w/walker. No skilled acute PT needs indicated. Discussed order for resuming outpt PT. Tony luisito d/c acute PT at this time. Raphael Roca DO - 07/22/2014 10:43 AM PDTFormatting of this note might be different from the briana ginal. Progress Notes by Raphael Gan DO at 07/22/14 1043 Author: Raphael Gan DO Service: (none) Author Type: Physician Filed: 07/22/14 1113 Date of Service: 07/22/14 1043 Status: Signed Dovetailer: Raphael Gan DO (Physician) [facility] Service: Infectious Disease Progress Note Hospital Day: LOS: 3 days Post-Op Day: * No surgery found * SUBJECTIVE Patient Summary: 58 y.o. female with significant past medical history of Crohn's dis ease on chronic prednisone 15 mg daily, COPD, gastroesophageal reflux disease, allergies to penicillin, levofloxacin, erythromycin who presented to [facility] with we akness and urinary incontinence. Initial workup was suggestive of urinary tract infection. T he patient also had chest pain and was transferred here for further workup of that problem. She was given aztreonam and vancomycin prior to transfer. Urine cultures collected on arriva l here have remained negative. She remains on aztreonam, identification and susceptibility o f gram-negative rods in urine culture at outside hospital pending. Blood cultures negative. CC: Fever and chills Chart reviewed: No new events. Subjective The patient reports that her weakness, fevers and malaise have improved. She denies any uri nary tract symptoms. She has not had any nausea, vomiting or diarrhea overnight. ROS No fever, chills sweats. No nausea, vomiting or diarrhea. No rashes or pruritis. No oral pa in. Scheduled Medications aztreonam 1 g Intravenous Q8H metoprolol 25 mg Oral BID morphine 15 mg Oral 5x Daily pantoprazole 40 mg Oral QAM AC potassium chloride SA 20 mEq Oral BID predniSONE 20 mg Oral Daily with breakfast tamsulosin 0.4 mg Oral after dinner warfarin 6 mg Oral Daily Continuous Infusions sodium chloride (IV) 110 mL/hr at 07/21/14 1047 PRN Medications acetaminophen OR acetaminophen, ipratropium-albuterol, LORazepam, morphine OR morph ine OR morphine, ondansetron OR ondansetron, polyethylene glycol, promethazine OBJECTIVE Vital Signs: BP 139/71 | Pulse 65 | Temp(Src) 98.4 F (36.9 C) (Oral) | Resp 16 | Ht 1.753 m (5' 9") | Wt 70.444 kg (155 lb 4.8 oz) | BMI 22.92 kg/m2 | SpO2 93% Temp (24hrs), Av.4 F (36.9 C), Min:98.2 F (36.8 C), Max:98.6 F (37 C) Exam: Const: Vitals reviewed. No acute distress Skin: No rashes, no edema ENT: No thrush. Lungs: CTAB, no rales or wheezes Heart: RRR, no murmur Abd: soft, NT, + bowel sounds DATA CBC: Lab Results Component Value Date WBC 11.27* 07/22/2014 RBC 4.06 07/22/2014 HGB 12.5 07/22/2014 HGB 10.9* 04/23/2014 HCT 40.1 07/22/2014 HCT 32* 04/23/2014 MCV 98.6 07/22/2014 MCH 30.8 07/22/2014 MCHC 31.2* 07/22/2014 RDW 55.1* 07/22/2014 PLT 309 07/22/2014 MPV 8.7 07/22/2014 DIFFTYPE AUTOMATED 07/22/2014 CMP: Lab Results Component Value Date NA 130* 07/22/2014 K 3.9 07/22/2014 CL 106 07/22/2014 CO2 20* 07/22/2014 ANIONGAP 8 07/22/2014 GLUF 98 07/22/2014 BUN 19 07/22/2014 CREATININE 0.69 07/22/2014 BCR 28 07/22/2014 CA 8.5 07/22/2014 PROT 5.9* 07/22/2014 ALB 2.8* 07/22/2014 GLOB 3.1 07/22/2014 BILITOT 0.4 07/22/2014 ALP 124* 07/22/2014 AST 18 07/22/2014 ALT 13 07/22/2014 EGFR >60 07/22/2014 Urine culture from [facility] shows pansensitive Escherichia coli with the exce ption of ampicillin. 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 Source is urinary tract, fortunately blood cultures nega tive. Further discussed below. UTI Focal symptoms appear to have been masked by the patient's chronic steroid therapy. We can transition to oral Omnicef based on the outpatient culture results. First dose should be giv en prior to discharge to observe for tolerance. Penicillin allergy The patient has had nausea and vomiting, a side effect but not a true allergic reaction. Sh ying has tolerated cephalexin in the past, so we should be able to treat with an oral cephalosp juan. Disposition: Ready for discharge from infectious diseases standpoint. She will need 11 day supply of Omnicef at the time of discharge. Follow-up in the ID clinic as needed, should hav e follow-up with primary care after discharge. Code Status: Full Code Raphael Gan DO 07/22/2014 Compa Nam MD - 07/10 11:09 AM PDT Progress Notes by Compa Jules MD at 07/21/14 1107 Author: Compa Jules MD Service: (none) Author Type: Physician Filed: 07/21/14 1128 Date of Service: 07/21/141108 Status: Signed Dovetailer: Compa Jules MD (Physician) [facility] Service: Hospitalist Progress Note Hospital Day: LOS: 2 days Consultants: Treatment Team: Consulting Physician: Raphael Gan DO Admitting Provider: Ro Davidson MD The first problem in assessment is the principal problem. ASSESSMENT/ PLAN 1. Systemic inflammatory response syndrome, urinary tract infection. Leukocytosis improving (patient does have some chronic leukocytosis). Continue with vancomycin, aztreonam for now. Received cultures, blood and urine from [facility]. Blood cultures negative so far. 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 Patient has multiple allergie s. Consulted Dr. Gan for further help. We'll follow recommendation Is somewhat immunocompromised on his on chronic steroids and status post splenectomy. Not o n Remicade for the last 4 months. 2. Nausea, most likely from urinary tract infection, also could be from Crohn. Usually she takes Phenergan 50 mg IV p.r.n. along with morphine 4 mg. We will go ahead and proceed with same. I explained the patient risks of sedation. No improving 3. Deep vein thrombosis, currently on Coumadin but has not taken it for 4 days. INR is subt herapeutic. We will c/w prophylactic dose Lovenox and continue with Coumadin also. 4. Crohn disease, on chronic steroids. Currently on stress dose steroids with hydrocortison e. Will start prednisone for now. Also she is not on Remicade for the last 4 months. She has to follow with gold buyer. 5. Chronic congestive heart failure, currently stable. Not decompensated at this point. Disposition: Home. 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 Personal communication requested for any clarification. SUBJECTIVE Events Overnight: *Patient reports that nausea is improved. No vomiting, abdominal pain, r esolved. Please much better and is getting stronger. OBJECTIVE General: Well nourished. Psych: Alert and oriented x 3. Calm, cooperative. Cardiovascular: Regular rate and rhythm, no murmurs, no thrills. Normal PMI. Respiratory: Clear to auscultation, no wheezing or crackles, breathing non labored. Gastrointestinal: Soft, non-tender, non-distended, positive bowel sounds. No HSM. Musculoskeletal: No edema in bilateral lower extremities. No joint swelling. Skin: Warm and dry, no rashes. Neck: No JVD, Trachea midline. Neurological: Non focal. Motor grossly intact. 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 CHF (congestive heart failure) Chronic steroid use GERD (gastroesophageal reflux disease) Immunocompromised Hypokalemia Hypomagnesemia HTN (hypertension) PMH Past Medical History Diagnosis Date COPD (chronic obstructive pulmonary disease) Crohn's disease Immunocompromised due to corticosteroids Recurrent aphthous ulcer E-coli UTI Hypokalemia Microcytic anemia Neuropathy Hypertension Embolism and thrombosis of splenic artery Other chronic pain GERD (gastroesophageal reflux disease) Osteoporosis Depression Chronic diarrhea Gastroesophageal reflux disease with hiatal hernia HOME MEDICATIONS Prior to Admission medications Medication Sig Start Date End Date Taking? Authorizing Provider cyanocobalamin 1000 MCG/ML injection Inject 1,000 mcg into the muscle every 30 (thirty) day s. Yes Historical Provider inFLIXimab (REMICADE) 100 MG injection Inject 375 mg into the vein. Every 6 weeks Yes His torical Provider lisinopril (ZESTRIL) 20 MG tablet Take 20 mg by mouth daily. Yes Historical Provider LORazepam (ATIVAN) 0.5 MG tablet Take 0.5 mg by mouth every 6 (six) hours as needed for Anx iety. Yes Historical Provider metoprolol (LOPRESSOR) 25 MG tablet Take 25 mg by mouth 2 (two) times daily. Yes Historic al Provider morphine (MSIR) 15 MG tablet Take 15 mg by mouth 5 (five) times daily. PRN Yes Historical Provider omeprazole (PRILOSEC) 40 MG capsule Take 40 mg by mouth 2 (two) times daily. Yes Historic al Provider oxyCODONE-acetaminophen (PERCOCET) 7.5-325 MG per tablet Take 1-2 tablets by mouth every 8 (eight) hours as needed for Pain. Yes Historical Provider potassium chloride SA (K-DUR,KLOR-CON) 20 MEQ tablet Take 20 mEq by mouth 2 (two) times ivan ly. Yes Historical Provider potassium chloride SA (KLOR-CON M15) 15 MEQ tablet Take 15 mEq by mouth 2 (two) times daily . Yes Historical Provider predniSONE (DELTASONE) 10 MG tablet Take 15 mg by mouth daily. Yes Historical Provider tamsulosin (FLOMAX) 0.4 MG capsule Take 0.4 mg by mouth After dinner. Administer 30 minute s after the same meal each day. Capsules should be swallowed whole; do not crush, chew, or o pen Yes Historical Provider warfarin (COUMADIN) 6 MG tablet Take 6 mg by mouth daily. Yes Historical Provider DATA Vital Signs: BP 161/76 | Pulse 82 | Temp(Src) 98.5 F (36.9 C) (Oral) | Resp 18 | Ht 1.753 m (5' 9") | Wt 69.31 kg (152 lb 12.8 oz) | BMI 22.55 kg/m2 | SpO2 91% Filed Vitals: 07/20/14205407/21/14 0023 07/21/14 0343 07/21/14 0715 BP: 144/69 115/58 132/67 161/76 Pulse: 87 80 62 82 Temp: 98 F (36.7 C) 98.4 F (36.9 C) 98.5 F (36.9 C) TempSrc: Oral Oral Oral Resp: 18 18 18 Height: Weight: 69.31 kg (152 lb 12.8 oz) SpO2: 91% 92% 91% Intake/Output Summary (Last 24 hours) at 07/21/14 1109 Last data filed at 07/21/14 0956 Gross per 24 hour Intake 3520 ml Output 1050 ml Net 2470 ml CBC: Lab Results Component Value Date WBC 13.42* 07/21/2014 RBC 4.10 07/21/2014 HGB 12.9 07/21/2014 HGB 10.9* 04/23/2014 HCT 40.0 07/21/2014 HCT 32* 04/23/2014 MCV 97.6 07/21/2014 MCH 31.4 07/21/2014 MCHC 32.1 07/21/2014 RDW 56.0* 07/21/2014 PLT 323 07/21/2014 MPV 7.9 07/21/2014 DIFFTYPE AUTOMATED 07/21/2014 CMP: Lab Results Component Value Date NA 141 07/21/2014 K 4.0 07/21/2014 CL 110* 07/21/2014 CO2 23 07/21/2014 ANIONGAP 12 07/21/2014 GLUF 97 07/21/2014 BUN 19 07/21/2014 CREATININE 0.84 07/21/2014 BCR 23 07/21/2014 CA 8.1* 07/21/2014 PROT 6.5 07/21/2014 ALB 2.4* 07/21/2014 GLOB 4.1 07/21/2014 BILITOT 0.5 07/21/2014 ALP 164* 07/21/2014 AST 18 07/21/2014 ALT 19 07/21/2014 EGFR >60 07/21/2014 Magnesium: Lab Results Component Value Date MG 1.9 07/21/2014 Phosphorus: Lab Results Component Value Date PHOS 2.4 07/21/2014 PT/INR: Lab Results Component Value Date INR 1.8 07/21/2014 PTT: Lab Results Component Value Date APTT 30 04/23/2014 [APTT Imaging @IMAGES@ Scheduled Medications aztreonam 1 g Intravenous Q8H enoxaparin 40 mg Subcutaneous Q24H hydrocortisone sodium succinate PF 100 mg Intravenous Q8H metoprolol 25 mg Oral BID morphine 15 mg Oral 5x Daily pantoprazole 40 mg Oral QAM AC potassium chloride SA 20 mEq Oral BID tamsulosin 0.4 mg Oral after dinner vancomycin 17 mg/kg Intravenous Q12H warfarin 6 mg Oral Daily Continuous Infusions sodium chloride (IV) 110 mL/hr at 07/21/14 1047 PRN Medications acetaminophen OR acetaminophen, ipratropium-albuterol, LORazepam, morphine OR morph ine OR morphine, ondansetron OR ondansetron, polyethylene glycol, promethazine Compa Jules MD 07/21/201411:09 AM onversion Transaction, Provider Unknown - 07/21/2014 10:18 AM PDTFormatting of this note might be different from th e original. Nurse Progress Note by Vale Ladd RN at 07/21/14 1018 Author: Vale Ladd RN Service: (none) Author Type: Registered Nurse Filed: 07/21/14 1019 Date of Service: 07/21/14 1018 Status: Signed Dovetailer: Vale Ladd RN (Registered Nurse) Pt much more awake and active today. Attempted to eat breakfast, using the commode to toil et, took shower. Still complains of headache and nausea. Vale Salgado onver roshan Transaction, Provider Unknown - 07/21/2014 9:16 AM PDT Case Management by LEVI Jerry at 07/21/14915 Author: LEVI Jerry Service: (none) Author Type: Gis Developer Filed: 07/21/14919 Date of Service: 07/21/14915 Status: Signed Dovetailer: LEVI Jerry (Gis Developer) 07/21/14913 Discharge Planning Evaluation Admitting Diagnosis (Sepsis due to UTI) Readmission No Living Arrangements Spouse/significant other Support Systems Spouse/significant other;Children Type of Residence Private residence House type House-1 story Steps to enter (no stairs) Independent with ADL's Yes Independent with Mobility Yes Home Care Services No Caregiver after Discharge No Mental Status Oriented Anticipated Discharge Plan Post Acute Care Needs None at this time Plan communicated to patient/family Yes Resources Financial concerns No Transportation issues No Patient/Family concerns No Anticipated Disposition Facility Type Home Met with pt for discharge planning. Pt is a 58 y.o., Pt's home environment / Ability to provide self care /care: Pt lives with her in [place]. Can provide all self-care/ADLs patients primary care is: Neel Fernandes MD Admitted with a diagnosis of sepsis UTI with Past Medical History Diagnosis Date COPD (chronic obstructive pulmonary disease) Crohn's disease Immunocompromised due to corticosteroids Recurrent aphthous ulcer E-coli UTI Hypokalemia Microcytic anemia Neuropathy Hypertension Embolism and thrombosis of splenic artery Other chronic pain GERD (gastroesophageal reflux disease) Osteoporosis Depression Chronic diarrhea Gastroesophageal reflux disease with hiatal hernia , Patient's insurance: Medicare/[facility] PT recommendations / DME recommendations: N/A - No DME indicated at this time Community resources: Patient just started PT at the "rec center" in [place]. Assistance in transportation: Family can transport home. CM also spoke with pt's RN, Vale and she did not identify any d/c needs at this time. LEVI Jerry Compa Nam MD - 07/20/2014 4:57 PM PDTFormatting of this note might be different from the origi nal. Progress Notes by Compa Jules MD at 07/20/14 8773 Author: Compa Jules MD Service: (none) Author Type: Physician Filed: 08/04/14 1307 Date of Service: 07/20/141656 Status: Signed Dovetailer: Compa Jules MD (Physician) Related Notes: Original Note by Compa Jules MD (Physician) filed at 07/20/14 1700 [facility] Service: Hospitalist Progress Note Hospital Day: LOS: 1 day Consultants: Treatment Team: Admitting Provider: Ro Davidson MD The first problem in assessment is the principal problem. ASSESSMENT/ PLAN 1. Systemic inflammatory response syndrome, urinary tract infection. Leukocytosis improving . Continue with vancomycin, aztreonam for now. We will hold ID consult at this point. We tony l wait for the culture to be grown from [facility] by tomorrow morning and will get records from there. If any resistant bacteria or need of IV antibiotics, will consult same, but she does have significant allergies. 2. Nausea, most likely from urinary tract infection, also could be from Crohn. Usually she takes Phenergan 50 mg IV p.r.n. along with morphine 4 mg. We will go ahead and proceed with same. I explained the patient risks of sedation. 3. Deep vein thrombosis, currently on Coumadin but has not taken it for 4 days. INR is subt herapeutic. We will start her on prophylactic dose Lovenox and continue with Coumadin also. 4. Crohn disease, on chronic steroids. Currently on stress dose steroids with hydrocortison e. Will hold p.o. prednisone for now. Also she is not on Remicade for the last 4 months. She has to follow with [facility]. 5. Chronic congestive heart failure, currently stable. Not decompensated at this point. Disposition: Home. 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 Personal communication requested for any clarification. SUBJECTIVE Events Overnight: *Patient was nauseous, still persistent but overall improving. No more f venessa. No diarrhea, abdominal pain is also improved OBJECTIVE General: Well nourished. Psych: Alert and oriented x 3. Calm, cooperative. Cardiovascular: Left sided Mediport Regular rate and rhythm, no murmurs, no thrills. Normal PMI. Respiratory: Clear to auscultation, no wheezing or crackles, breathing non labored. Gastrointestinal: Midline abdominal scar. Moderate tenderness in epigastric area, non-diste nded, positive bowel sounds. No HSM. Musculoskeletal: No edema in bilateral lower extremities. No joint swelling. Skin: Warm and dry, no rashes. Neck: No JVD, Trachea midline. Neurological: Non focal. Motor grossly intact. 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 CHF (congestive heart failure) Chronic steroid use GERD (gastroesophageal reflux disease) Immunocompromised Hypokalemia Hypomagnesemia HTN (hypertension) PMH Past Medical History Diagnosis Date COPD (chronic obstructive pulmonary disease) Crohn's disease Immunocompromised due to corticosteroids Recurrent aphthous ulcer E-coli UTI Hypokalemia Microcytic anemia Neuropathy Hypertension Embolism and thrombosis of splenic artery Other chronic pain GERD (gastroesophageal reflux disease) Osteoporosis Depression Chronic diarrhea Gastroesophageal reflux disease with hiatal hernia HOME MEDICATIONS Prior to Admission medications Medication Sig Start Date End Date Taking? Authorizing Provider cyanocobalamin 1000 MCG/ML injection Inject 1,000 mcg into the muscle every 30 (thirty) day s. Yes Historical Provider inFLIXimab (REMICADE) 100 MG injection Inject 375 mg into the vein. Every 6 weeks Yes His torical Provider lisinopril (ZESTRIL) 20 MG tablet Take 20 mg by mouth daily. Yes Historical Provider LORazepam (ATIVAN) 0.5 MG tablet Take 0.5 mg by mouth every 6 (six) hours as needed for Anx iety. Yes Historical Provider metoprolol (LOPRESSOR) 25 MG tablet Take 25 mg by mouth 2 (two) times daily. Yes Historic al Provider morphine (MSIR) 15 MG tablet Take 15 mg by mouth 5 (five) times daily. PRN Yes Historical Provider omeprazole (PRILOSEC) 40 MG capsule Take 40 mg by mouth 2 (two) times daily. Yes Historic al Provider oxyCODONE-acetaminophen (PERCOCET) 7.5-325 MG per tablet Take 1-2 tablets by mouth every 8 (eight) hours as needed for Pain. Yes Historical Provider potassium chloride SA (K-DUR,KLOR-CON) 20 MEQ tablet Take 20 mEq by mouth 2 (two) times ivan ly. Yes Historical Provider potassium chloride SA (KLOR-CON M15) 15 MEQ tablet Take 15 mEq by mouth 2 (two) times daily . Yes Historical Provider predniSONE (DELTASONE) 10 MG tablet Take 15 mg by mouth daily. Yes Historical Provider tamsulosin (FLOMAX) 0.4 MG capsule Take 0.4 mg by mouth After dinner. Administer 30 minute s after the same meal each day. Capsules should be swallowed whole; do not crush, chew, or o pen Yes Historical Provider warfarin (COUMADIN) 6 MG tablet Take 6 mg by mouth daily. Yes Historical Provider DATA Vital Signs: BP 161/77 | Pulse 100 | Temp(Src) 99.1 F (37.3 C) (Oral) | Resp 18 | Ht 1.753 m (5' 9") | Wt 64.32 kg (141 lb 12.8 oz) | BMI 20.93 kg/m2 | SpO2 94% Filed Vitals: 07/20/14 0304 07/20/14 0716 07/20/14 1131 07/20/14 1517 BP: 149/78 142/82 171/84 161/77 Pulse: 118 114 95 100 Temp: 99.6 F (37.6 C) 99.3 F (37.4 C) 98.2 F (36.8 C) 99.1 F (37.3 C) TempSrc: Oral Oral Axillary Oral Resp: Height: Weight: SpO2: 92% 93% 91% 94% Intake/Output Summary (Last 24 hours) at 07/20/14 1657 Last data filed at 07/20/14 1248 Gross per 24 hour Intake 1835 ml Output 650 ml Net 1185 ml CBC: Lab Results Component Value Date WBC 14.55* 07/20/2014 RBC 4.76 07/20/2014 HGB 15.1 07/20/2014 HGB 10.9* 04/23/2014 HCT 45.6 07/20/2014 HCT 32* 04/23/2014 MCV 95.9 07/20/2014 MCH 31.7 07/20/2014 MCHC 33.1 07/20/2014 RDW 53.8* 07/20/2014 PLT 355 07/20/2014 MPV 8.4 07/20/2014 DIFFTYPE MANUAL 07/20/2014 CMP: Lab Results Component Value Date NA 137 07/20/2014 K 3.7 07/20/2014 CL 103 07/20/2014 CO2 23 07/20/2014 ANIONGAP 15 07/20/2014 GLUF 150* 07/20/2014 BUN 9 07/20/2014 CREATININE 0.76 07/20/2014 BCR 12 07/20/2014 CA 8.6 07/20/2014 PROT 7.3 07/20/2014 ALB 2.6* 07/20/2014 GLOB 4.7 07/20/2014 BILITOT 0.9 07/20/2014 ALP 246* 07/20/2014 AST 26 07/20/2014 ALT 23 07/20/2014 EGFR >60 07/20/2014 Magnesium: Lab Results Component Value Date MG 1.8 07/20/2014 Phosphorus: Lab Results Component Value Date PHOS 3.2 07/20/2014 PT/INR: Lab Results Component Value Date INR 1.1 07/20/2014 PTT: Lab Results Component Value Date APTT 30 04/23/2014 [APTT Imaging @IMAGES@ Scheduled Medications aztreonam 1 g Intravenous Q8H enoxaparin 40 mg Subcutaneous Q24H hydrocortisone sodium succinate PF 100 mg Intravenous Q8H metoprolol 25 mg Oral BID morphine 15 mg Oral 5x Daily pantoprazole 40 mg Oral QAM AC potassium chloride SA 20 mEq Oral BID tamsulosin 0.4 mg Oral after dinner vancomycin 17 mg/kg Intravenous Q12H warfarin 6 mg Oral Daily Continuous Infusions sodium chloride (IV) 110 mL/hr at 07/20/14 1248 PRN Medications acetaminophen OR acetaminophen, ipratropium-albuterol, LORazepam, morphine OR morph ine OR morphine, ondansetron OR ondansetron, polyethylene glycol, promethazine Compa Jules MD 07/20/20144:57 PM onversion Transaction, Provider Unknown - 07/20/2014 1:17 PM PDTFormatting of this note might be different from th e original. Progress Notes by Vale Ladd RN at 07/20/14 0010 Author: Vale Ladd RN Service: (none) Author Type: Registered Nurse Filed: 07/20/14 3964 Date of Service: 07/20/141316 Status: Signed Dovetailer: Vale Ladd RN (Registered Nurse) Pt educated and encouraged to get out of bed and walk or sit in chair. Pt refused. Explai amber risk for pneumonia, blood clot, and loss of strength if patient did not move out of bed, patient again refused. Encouraged to at least get out of bed to use bedside commode, again patient refused and requested a bedpan. Vale Salgado onver roshan Transaction, Provider Unknown - 07/20/2014 7:16 AM PDT Progress Notes by Paula Barnes [facility] at 07/20/14 5218 Author: Paula Barnes RPH Service: (none) Author Type: Pharmacist Filed: 07/20/14715 Date of Service: 07/20/14715 Status: Signed Dovetailer: Paula Barnes RPH (Pharmacist) Late entry for Vancomycin started last night by Crispin LUNA. Initiation of Vancomycin Pharmacy Dosing Mackenzie Willingham 58 y.o. female 1.753 m (5' 9") 64.32 kg (141 lb 12.8 oz) Body mass index is 20.93 kg/(m^2). Richardson Body Weight: 66.2 kg Adjusted Body Weight: 64.3 kg CREATININE Date Value Ref Range Status 07/20/2014 0.76 0.50 - 1.00 mg/dL Final Testing performed at [facility];[address] [place] [id number] Estimated CrCl : CREATININE: 0.76 (07/20/14 0354) Estimated creatinine clearance - 81.9 mL/min Indications: UTI Dose per Protocol: Loading Dose: Vancomycin 1000 mg (15.6 mg/kg TBW) IV Q12hr First Dose to be Given: 2200 07-19-2014 Vancomycin Trough Due: 2100 07-21-2014 Goal Trough for Vancomycin: 10-20 mcg/mL Pharmacist: Paula Barnes 07/20/2014 7:12 AM onver roshan Main, Provider Unknown - 07/19/2014 8:56 PM PDT Progress Notes by Hamilton Drummond RPH at 07/19/142055 Author: Hamilton Drummond RPH Service: (none) Author Type: Pharmacist Filed: 07/19/142055 Date of Service: 07/19/142055 Status: Signed Dovetailer: Hamilton Drummond RPH (Pharmacist) Note ccl 90.2ml/min meds reviewed Pharmacy will follow [facility] 2054 docume nted in this encounter H&P Notes Ro Davidson MD - 07/19/2014 8:00 PM PDTFormatting of this note might be different from th e original. H&P by Ro Davidson MD at 07/19/141999 Author: Ro Davidson MD Service: Hospitalist Author Type: Physician Filed: 07/20/14 0822 Date of Service: 07/19/141999 Status: Addendum Dovetailer: Ro Davidson MD (Physician) Related Notes: Original Note by Ro Davidson MD (Physician) filed at 07/19/142055 [facility] Service: Hospitalist Admission History & Physical Date of Admission: 07/19/2014 Requesting Physician: Transfer from [facility] Reason for Admission: Sepsis due to UTI History Obtained From: patient, chart review CHIEF COMPLAINT: i am feeling sick HISTORY OF PRESENT ILLNESS The patient is a 58 y.o. female with significant past medical history listed below in PMHx who presents to [facility] facility with weakness and urinary incontinence,the patient had rec eived dilaudid on her way here and she is very sleepy and hard to get answers from,labs from transferring facility show wbc above 26k ,fever 102 and tachycardia,mild elevated troponin, high suspicious urine for UTI,hypokalemia and hypomagnesia,she was given per transferring ph ysician IV vancomycin and aztreonam prior to transfer,urine and blood cx were processed ther e.the patient denies SOB or CP,she does report bilateral flank pain.she reports her last rem icade infusion was 4 months ago for crohn's disease and she is on daily prednisone 15 mg. REVIEW OF SYSTEMS Review of systems not obtained due to lack of cooperation. Past Medical History Diagnosis Date COPD (chronic obstructive pulmonary disease) Crohn's disease Immunocompromised due to corticosteroids Recurrent aphthous ulcer E-coli UTI Hypokalemia Microcytic anemia Neuropathy Hypertension Embolism and thrombosis of splenic artery Other chronic pain GERD (gastroesophageal reflux disease) Osteoporosis Depression Chronic diarrhea Gastroesophageal reflux disease with hiatal hernia Past Surgical History Procedure Laterality Date Abdominal surgery Small intestine surgery Lysis of adhesions Cholecystectomy Appendectomy Hysterectomy Tonsillectomy Portacath placement Left Esophagogastroduodenoscopy N/A 04/21/2014 Procedure: ESOPHAGOGASTRODUODENOSCOPY; Surgeon: Bony Petty MD; Location: [facility] BEDSIDE PROCEDURE; Service: Gastroenterology; Laterality: N/A; Laparotomy N/A 04/23/2014 Procedure: EXPLORATION - LAPAROTOMY; Surgeon: Bogdan Moser DO; Location: [facility] MAIN OR; Service: General; Laterality: N/A; Splenectomy, total N/A 04/23/2014 Procedure: SPLENECTOMY; Surgeon: Bogdan Moser DO; Location: [facility] MAIN OR; Service: General; Laterality: N/A; Allergies Allergen Reactions Demerol [Meperidine] Other (See Comments) Unknown Erythromycin Other (See Comments) unknown Levofloxacin Other (See Comments) tendinitis Reglan [Metoclopramide] Agitation Unknown Penicillins Nausea and Vomiting Prescriptions prior to admission Medication Sig Dispense Refill cyanocobalamin 1000 MCG/ML injection Inject 1,000 mcg into the muscle every 30 (thirty) days. inFLIXimab (REMICADE) 100 MG injection Inject 375 mg into the vein. Every 6 weeks lisinopril (ZESTRIL) 20 MG tablet Take 20 mg by mouth daily. LORazepam (ATIVAN) 0.5 MG tablet Take 0.5 mg by mouth every 6 (six) hours as needed for Anxiety. metoprolol (LOPRESSOR) 25 MG tablet Take 25 mg by mouth 2 (two) times daily. morphine (MSIR) 15 MG tablet Take 15 mg by mouth 5 (five) times daily. PRN omeprazole (PRILOSEC) 40 MG capsule Take 40 mg by mouth 2 (two) times daily. oxyCODONE-acetaminophen (PERCOCET) 7.5-325 MG per tablet Take 1-2 tablets by mouth ever y 8 (eight) hours as needed for Pain. potassium chloride SA (K-DUR,KLOR-CON) 20 MEQ tablet Take 20 mEq by mouth 2 (two) times daily. potassium chloride SA (KLOR-CON M15) 15 MEQ tablet Take 15 mEq by mouth 2 (two) times d aily. predniSONE (DELTASONE) 10 MG tablet Take 15 mg by mouth daily. tamsulosin (FLOMAX) 0.4 MG capsule Take 0.4 mg by mouth After dinner. Administer 30 mi nutes after the same meal each day. Capsules should be swallowed whole; do not crush, chew, or open warfarin (COUMADIN) 6 MG tablet Take 6 mg by mouth daily. No family history on file. History Social History Marital Status: Spouse Name: N/A Number of Children: N/A Years of Education: N/A Occupational History Not on file. Social History Main Topics Smoking status: Current Every Day Smoker -- 0.50 packs/day Smokeless tobacco: Not on file Alcohol Use: Yes Comment: occasionally Drug Use: No Sexual Activity: Partners: Male Other Topics Concern Not on file Social History Narrative PHYSICAL EXAM BP 140/91 | Pulse 103 | Temp(Src) 99.1 F (37.3 C) (Oral) | Resp 20 | Ht 1.753 m (5' 9") | Wt 64.32 kg (141 lb 12.8 oz) | BMI 20.93 kg/m2 General appearance: alert, appears stated age, distracted, fatigued, no distress and slowed mentation Head: Normocephalic, without obvious abnormality, atraumatic Neck: no adenopathy, no carotid bruit, no JVD, supple, symmetrical, trachea midline and thy roid not enlarged, symmetric, no tenderness/mass/nodules Lungs: diminished breath sounds bibasilar and bilaterally,left Mediport no redness or disch arge Heart: regular rate and rhythm, S1, S2 normal, no murmur, click, rub or gallop Abdomen: soft, non-tender; bowel sounds normal; no masses, no organomegaly and bilateral C VA tenderness Extremities: extremities normal, atraumatic, no cyanosis or edema Pulses: 2+ and symmetric Neurologic: awakens to voice,she is very sleepy and sedated could not assess further DATA CBC: Lab Results Component Value Date WBC 19.56* 07/19/2014 RBC 4.56 07/19/2014 HGB 14.5 07/19/2014 HGB 10.9* 04/23/2014 HCT 43.4 07/19/2014 HCT 32* 04/23/2014 MCV 95.2 07/19/2014 MCH 31.8 07/19/2014 MCHC 33.4 07/19/2014 RDW 53.4* 07/19/2014 PLT 335 07/19/2014 MPV 7.8 07/19/2014 DIFFTYPE AUTOMATED 07/19/2014 CMP: Lab Results Component Value Date NA 135 07/19/2014 K 3.1* 07/19/2014 CL 101 07/19/2014 CO2 26 07/19/2014 ANIONGAP 12 07/19/2014 GLUF 109* 07/19/2014 BUN 9 07/19/2014 CREATININE 0.69 07/19/2014 BCR 12 07/19/2014 CA 8.5 07/19/2014 PROT 3.8* 04/23/2014 ALB 2.3* 04/23/2014 GLOB 3.7 04/12/2014 BILITOT 1.0 04/23/2014 ALP 44 04/23/2014 AST 1692* 04/23/2014 ALT 901* 04/23/2014 EGFR >60 07/19/2014 Lab Results Component Value Date INR 1.1 07/19/2014 INR 1.3 04/23/2014 INR 1.4 04/22/2014 Recent Labs Lab 07/19/14 2019 MG 1.2* Lab Results Component Value Date PHOS 3.4 07/19/2014 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 CHF (congestive heart failure) Chronic steroid use GERD (gastroesophageal reflux disease) Immunocompromised Hypokalemia Hypomagnesemia HTN (hypertension) ASSESSMENT & PLAN 1.Sepsis most likely due to UTI will continue broad spectrum coverage pending urine/blood c x results from transferring facility ,IVF,tele. Check renal U/S.check CRP and pro calcitonin ,consider ID consult in AM. 2.Crohns disease will hold oral steroids and start IV steroids due to sepsis and need for s tress dose. 3.COPD she is on RA seems stable,nebs as needed. 4. Hx of blood clots she is on chronic coumadin check INR and resume for goal 2-3 5.hx of sys chf ECHO 04/25 show NL EF%. Will trend troponin given mild increase in labs draw n at other hospital.continue home meds and watch I/Os,she is CP free.EKG does not show acute ischemic changes. 6.DVT px SCDs and coumadin 7.GERD continue PPI at home dose 8.Narcotic dependence continue home meds and as needed IV morphine per her request. 9.Electrolyte abnormalities replete via electrolyte protocol and monitor 10.HTN BP seems stable for now will resume metoprolol and hold on ACEi for now, re eval in AM. Disposition: Admitted Code Status: Full Code Primary Care Physician: Neel Davidson MD 07/19/2014 documented in this encou nter Consult Notes Raphael Gan DO - 07/21/2014 12:15 PM PDT Consult* by Raphael Gan DO at 07/21/14 1215 Author: Raphael Gan DO Service: (none) Author Type: Physician Filed: 07/21/14 1240 Date of Service: 07/21/141214 Status: Signed Dovetailer: Raphael Gan DO (Physician) [facility] Service: Infectious Disease Initial Consult Note Date of Admission: 07/19/2014 Reason for Consultation: Urosepsis, multiple antibiotic allergies Requesting Physician: Denise Jules History Obtained From: patient, chart review CHIEF COMPLAINT: Weakness, urinary incontinence HISTORY OF PRESENT ILLNESS The patient is a 58 y.o. female with significant past medical history of Crohn's disease on chronic prednisone 15 mg daily, COPD, gastroesophageal reflux disease, allergies to penicil mamadou, levofloxacin, erythromycin who presented to [facility] with weakness and urinary incontinence. Initial workup was suggestive of urinary tract infection. The starr ent also had chest pain and was transferred here for further workup of that problem. She was given aztreonam and vancomycin prior to transfer. Urine cultures collected on arrival here have remained negative. She remains on aztreonam and vancomycin at this time. The patient reports that she started having weakness, nausea, vomiting on the day of initia l presentation without any associated urinary tract symptoms. She has had symptomatic urinar y tract infections in the past, but she notes that her most recent 2 or 3 infections have be en asymptomatic with regard to the urinary tract. She has attributed this to her prednisone which seems to mask a lot of symptoms. She denies any diarrhea recently, states that her [employer] hn's disease has been well-controlled. She has been off Remicade for 4 months due to her rec ent blood clots and need for splenectomy, and hopes that she can resume it at some point in the future. She has been maintained on prednisone 15 mg daily. Even when taking Remicade, naveen he had recurrent diarrhea when tapering prednisone down to 5 mg in the past. She has been on steroids for 37 years. The patient reports that she has severe nausea and vomiting from penicillins. She has never had a rash, hives or anaphylaxis from penicillins. She has tolerated cephalosporins in the past without difficulty. Levofloxacin has caused Achilles tendinitis even after short course s. REVIEW OF SYSTEMS Review of Systems Complete review of the constitutional, ENT, cardiovascular, respiratory, gastrointestinal, genitourinary, integumentary, musculoskeletal, psychiatric, neurologic, heme/lymphatic syste ms is entirely negative except as described above in the history of the present illness. Past Medical History Diagnosis Date COPD (chronic obstructive pulmonary disease) Crohn's disease Immunocompromised due to corticosteroids Recurrent aphthous ulcer E-coli UTI Hypokalemia Microcytic anemia Neuropathy Hypertension Embolism and thrombosis of splenic artery Other chronic pain GERD (gastroesophageal reflux disease) Osteoporosis Depression Chronic diarrhea Gastroesophageal reflux disease with hiatal hernia Past Surgical History Procedure Laterality Date Abdominal surgery Small intestine surgery Lysis of adhesions Cholecystectomy Appendectomy Hysterectomy Tonsillectomy Portacath placement Left Esophagogastroduodenoscopy N/A 04/21/2014 Procedure: ESOPHAGOGASTRODUODENOSCOPY; Surgeon: Bony Petty MD; Location: [facility] BEDSIDE PROCEDURE; Service: Gastroenterology; Laterality: N/A; Laparotomy N/A 04/23/2014 Procedure: EXPLORATION - LAPAROTOMY; Surgeon: Bogdan Moser DO; Location: [facility] MAIN OR; Service: General; Laterality: N/A; Splenectomy, total N/A 04/23/2014 Procedure: SPLENECTOMY; Surgeon: Bogdan Moser DO; [facility] [facility]; Service: General; Laterality: N/A; Allergies Allergen Reactions Demerol [Meperidine] Other (See Comments) Unknown Erythromycin Other (See Comments) unknown Levofloxacin Other (See Comments) tendinitis Reglan [Metoclopramide] Agitation Unknown Penicillins Nausea and Vomiting Prescriptions prior to admission Medication Sig Dispense Refill cyanocobalamin 1000 MCG/ML injection Inject 1,000 mcg into the muscle every 30 (thirty) days. inFLIXimab (REMICADE) 100 MG injection Inject 375 mg into the vein. Every 6 weeks lisinopril (ZESTRIL) 20 MG tablet Take 20 mg by mouth daily. LORazepam (ATIVAN) 0.5 MG tablet Take 0.5 mg by mouth every 6 (six) hours as needed for Anxiety. metoprolol (LOPRESSOR) 25 MG tablet Take 25 mg by mouth 2 (two) times daily. morphine (MSIR) 15 MG tablet Take 15 mg by mouth 5 (five) times daily. PRN omeprazole (PRILOSEC) 40 MG capsule Take 40 mg by mouth 2 (two) times daily. oxyCODONE-acetaminophen (PERCOCET) 7.5-325 MG per tablet Take 1-2 tablets by mouth ever y 8 (eight) hours as needed for Pain. potassium chloride SA (K-DUR,KLOR-CON) 20 MEQ tablet Take 20 mEq by mouth 2 (two) times daily. potassium chloride SA (KLOR-CON M15) 15 MEQ tablet Take 15 mEq by mouth 2 (two) times d aily. predniSONE (DELTASONE) 10 MG tablet Take 15 mg by mouth daily. tamsulosin (FLOMAX) 0.4 MG capsule Take 0.4 mg by mouth After dinner. Administer 30 mi nutes after the same meal each day. Capsules should be swallowed whole; do not crush, chew, or open warfarin (COUMADIN) 6 MG tablet Take 6 mg by mouth daily. Scheduled Medications aztreonam 1 g Intravenous Q8H enoxaparin 40 mg Subcutaneous Q24H hydrocortisone sodium succinate PF 100 mg Intravenous Q8H metoprolol 25 mg Oral BID morphine 15 mg Oral 5x Daily pantoprazole 40 mg Oral QAM AC potassium chloride SA 20 mEq Oral BID tamsulosin 0.4 mg Oral after dinner vancomycin 17 mg/kg Intravenous Q12H warfarin 6 mg Oral Daily Continuous Infusions sodium chloride (IV) 110 mL/hr at 07/21/14 1047 PRN Medications acetaminophen OR acetaminophen, ipratropium-albuterol, LORazepam, morphine OR morph ine OR morphine, ondansetron OR ondansetron, polyethylene glycol, promethazine No family history on file. History Social History Marital Status: Spouse Name: N/A Number of Children: N/A Years of Education: N/A Occupational History Not on file. Social History Main Topics Smoking status: Current Every Day Smoker -- 0.50 packs/day Smokeless tobacco: Not on file Alcohol Use: Yes Comment: occasionally Drug Use: No Sexual Activity: Partners: Male Other Topics Concern Not on file Social History Narrative PHYSICAL EXAM Vital Signs: BP 140/66 | Pulse 56 | Temp(Src) 98.5 F (36.9 C) (Oral) | Resp 18 | Ht 1.753 m (5' 9") | Wt 69.31 kg (152 lb 12.8 oz) | BMI 22.55 kg/m2 | SpO2 93% Temp (24hrs), Av.6 F (37 C), Min:98 F (36.7 C), Max:99.1 F (37.3 C) Physical Exam Constitutional: The patient is in no acute distress and appears stated age. Vital signs wer e reviewed as above Head: Normocephalic and atraumatic ENT: Mucous membranes are moist. There is no evidence of thrush. No pharyngeal exudates. Neck: Supple without thyromegaly or meningismus. Heart: Regular rate and rhythm without murmurs gallops or rubs Lungs: Clear to auscultation bilaterally without wheezes rales or rhonchi. Abdomen: Soft and nontender, bowel sounds are present, there is no organomegaly or mass Musculoskeletal: There is no gross deformity or active arthritis. Neuro: There are no gross deficits of motor or sensory function Skin: There are no rashes of clinical significance. There are no ulcerations or significant wounds. Extremities: There is no clubbing, cyanosis, or peripheral edema. Psychiatric: The patient attends the examiner without difficulty and affect is appropriate. DATA CBC: Lab Results Component Value Date WBC 13.42* 07/21/2014 RBC 4.10 07/21/2014 HGB 12.9 07/21/2014 HGB 10.9* 04/23/2014 HCT 40.0 07/21/2014 HCT 32* 04/23/2014 MCV 97.6 07/21/2014 MCH 31.4 07/21/2014 MCHC 32.1 07/21/2014 RDW 56.0* 07/21/2014 PLT 323 07/21/2014 MPV 7.9 07/21/2014 DIFFTYPE AUTOMATED 07/21/2014 CMP: Lab Results Component Value Date NA 141 07/21/2014 K 4.0 07/21/2014 CL 110* 07/21/2014 CO2 23 07/21/2014 ANIONGAP 12 07/21/2014 GLUF 97 07/21/2014 BUN 19 07/21/2014 CREATININE 0.84 07/21/2014 BCR 23 07/21/2014 CA 8.1* 07/21/2014 PROT 6.5 07/21/2014 ALB 2.4* 07/21/2014 GLOB 4.1 07/21/2014 BILITOT 0.5 07/21/2014 ALP 164* 07/21/2014 AST 18 07/21/2014 ALT 19 07/21/2014 EGFR >60 07/21/2014 Microbiology: Urine culture collected here on admission is negative at 48 hours. Urine cult ure collected at the outside hospital shows greater than 100,000 colonies of a lactose ferme nting gram-negative kiko, identification and susceptibility pending. Both blood cultures maya ected at the outside hospital are negative. Medical imaging: Chest x-ray performed at the outside hospital was viewed in PACS. She has markedly elevated right hemidiaphragm with mild lateral right basilar atelectasis but no sig nificant infiltrates. No apparent pleural effusions. Medical record review: I have reviewed the patient's admission history and physical as well as progress notes from the current hospital stay. Emergency department notes have also been reviewed. Much of this information is summarized above in history of present illness. 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 CHF (congestive heart failure) Chronic steroid use GERD (gastroesophageal reflux disease) Immunocompromised Hypokalemia Hypomagnesemia HTN (hypertension) ASSESSMENT & PLAN Patient Active Hospital Problem List: Sepsis(995.91) (07/19/2014) No evidence of Mediport infection. Source is urinary tract, fortunately blood cultures ne gative. Further discussed below. UTI Focal symptoms appear to have been masked by the patient's chronic steroid therapy. At th is time, we will continue aztreonam while awaiting identification and susceptibility of the gram-negative rods. Vancomycin can be discontinued. I would favor treating for 14 days for p yelonephritis, but hope to switch to an oral cephalosporin once susceptibility is confirmed. Penicillin allergy The patient has had nausea and vomiting, a side effect but not a true allergic reaction. She has tolerated cephalexin in the past, so we should be able to treat with an oral cephalo sporin. Code Status: Full Code Primary Care Physician: Neel Fernandes Thank you for allowing me to participate in the care of this patient. I will continue to follow with you. Raphael Gan DO 07/21/2014 documented in this enc ounter Plan of Treatment Not on filedocumented as of this encounter Procedures + +--------+ + + + | Procedure Name | Priori | Date/Time | Associated Diagnosis | Comments | | | ty | | | | + +--------+ + + + | URINALYSIS, REFLEX | Routin | 07/22/2014 | | Results for this | | MICROSCOPIC AND/OR | e | 5:56 AM | | procedure are in the | | CULTURE | | PDT | | results section. | + +--------+ + + + | URINALYSIS, | Routin | 07/22/2014 | | Results for this | | MICROSCOPIC ONLY | e | 5:56 AM | | procedure are in the | | | | PDT | | results section. | + +--------+ + + + | CULTURE, URINE | Routin | 07/22/2014 | | Results for this | | | e | 5:56 AM | | procedure are in the | | | | PDT | | results section. | + +--------+ + + + | EXTERNAL LAB: CBC | Routin | 07/22/2014 | | Results for this | | | e | 3:44 AM | | procedure are in the | | | | PDT | | results section. | + +--------+ + + + | PROTIME INR | Routin | 07/22/2014 | | Results for this | | | e | 3:44 AM | | procedure are in the | | | | PDT | | results section. | + +--------+ + + + | PHOSPHORUS | Routin | 07/22/2014 | | Results for this | | | e | 3:44 AM | | procedure are in the | | | | PDT | | results section. | + +--------+ + + + | MAGNESIUM | Routin | 07/22/2014 | | Results for this | | | e | 3:44 AM | | procedure are in the | | | | PDT | | results section. | + +--------+ + + + | COMPREHENSIVE | Routin | 07/22/2014 | | Results for this | | METABOLIC PANEL | e | 3:44 AM | | procedure are in the | | | | PDT | | results section. | + +--------+ + + + | EXTERNAL LAB: CBC | Routin | 07/21/2014 | | Results for this | | | e | 5:46 AM | | procedure are in the | | | | PDT | | results section. | + +--------+ + + + | PROTIME INR | Routin | 07/21/2014 | | Results for this | | | e | 5:46 AM | | procedure are in the | | | | PDT | | results section. | + +--------+ + + + | PHOSPHORUS | Routin | 07/21/2014 | | Results for this | | | e | 5:46 AM | | procedure are in the | | | | PDT | | results section. | + +--------+ + + + | MAGNESIUM | Routin | 07/21/2014 | | Results for this | | | e | 5:46 AM | | procedure are in the | | | | PDT | | results section. | + +--------+ + + + | COMPREHENSIVE | Routin | 07/21/2014 | | Results for this | | METABOLIC PANEL | e | 5:46 AM | | procedure are in the | | | | PDT | | results section. | + +--------+ + + + | TROPONIN I | Routin | 07/20/2014 | | Results for this | | | e | 5:53 AM | | procedure are in the | | | | PDT | | results section. | + +--------+ + + + | EXTERNAL LAB: CBC | Routin | 07/20/2014 | | Results for this | | | e | 3:54 AM | | procedure are in the | | | | PDT | | results section. | + +--------+ + + + | PROCALCITONIN, SERUM | Routin | 07/20/2014 | | Results for this | | | e | 3:54 AM | | procedure are in the | | | | PDT | | results section. | + +--------+ + + + | PROTIME INR | Routin | 07/20/2014 | | Results for this | | | e | 3:54 AM | | procedure are in the | | | | PDT | | results section. | + +--------+ + + + | C-REACTIVE PROTEIN | Routin | 07/20/2014 | | Results for this | | | e | 3:54 AM | | procedure are in the | | | | PDT | | results section. | + +--------+ + + + | PHOSPHORUS | Routin | 07/20/2014 | | Results for this | | | e | 3:54 AM | | procedure are in the | | | | PDT | | results section. | + +--------+ + + + | MAGNESIUM | Routin | 07/20/2014 | | Results for this | | | e | 3:54 AM | | procedure are in the | | | | PDT | | results section. | + +--------+ + + + | COMPREHENSIVE | Routin | 07/20/2014 | | Results for this | | METABOLIC PANEL | e | 3:54 AM | | procedure are in the | | | | PDT | | results section. | + +--------+ + + + | URINALYSIS, REFLEX | Routin | 07/20/2014 | | Results for this | | MICROSCOPIC AND/OR | e | 3:21 AM | | procedure are in the | | CULTURE | | PDT | | results section. | + +--------+ + + + | URINALYSIS, | Routin | 07/20/2014 | | Results for this | | MICROSCOPIC ONLY | e | 3:21 AM | | procedure are in the | | | | PDT | | results section. | + +--------+ + + + | CULTURE, URINE | Routin | 07/20/2014 | | Results for this | | | e | 3:21 AM | | procedure are in the | | | | PDT | | results section. | + +--------+ + + + | TROPONIN I | Routin | 07/20/2014 | | Results for this | | | e | 12:22 AM | | procedure are in the | | | | PDT | | results section. | + +--------+ + + + | US RENAL LIMITED | Routin | 07/19/2014 | | Results for this | | | e | 11:26 PM | | procedure are in the | | | | PDT | | results section. | + +--------+ + + + | XR CHEST 1 VIEW | Routin | 07/19/2014 | | Results for this | | | e | 10:21 PM | | procedure are in the | | | | PDT | | results section. | + +--------+ + + + | MRSA NAAT | Timed | 07/19/2014 | | Results for this | | | | 8:59 PM | | procedure are in the | | | | PDT | | results section. | + +--------+ + + + | EXTERNAL LAB: CBC | Routin | 07/19/2014 | | Results for this | | | e | 8:19 PM | | procedure are in the | | | | PDT | | results section. | + +--------+ + + + | PROTIME INR | Routin | 07/19/2014 | | Results for this | | | e | 8:19 PM | | procedure are in the | | | | PDT | | results section. | + +--------+ + + + | PHOSPHORUS | Routin | 07/19/2014 | | Results for this | | | e | 8:19 PM | | procedure are in the | | | | PDT | | results section. | + +--------+ + + + | MAGNESIUM | Routin | 07/19/2014 | | Results for this | | | e | 8:19 PM | | procedure are in the | | | | PDT | | results section. | + +--------+ + + + | BASIC METABOLIC | Routin | 07/19/2014 | | Results for this | | PANEL | e | 8:19 PM | | procedure are in the | | | | PDT | | results section. | + +--------+ + + + documented in this encounter Results Culture, Urine (07/22/2014 5:56 AM PDT) + + | Specimen | + + | | + + + + + | Narrative | Performed At | + + + | Specimen Description URINE, COLLECTION NOT | EXTERNAL LAB | | GIVEN CULTURE NO GROWTH | | | Testing performed | | | at [facility], [address] [place] [address] | | + + + + +---------+ + + | Performing | Address | City/State/Zipcode | Phone Number | | Organization | | | | + +---------+ + + | EXTERNAL LAB | | | | + +---------+ + + Urinalysis, Reflex Microscopic and/or Culture (07/22/2014 5:56 AM PDT) + + + + + + | Component | Value | Ref Range | Performed | Pathologist | | | | | At | Signature | + + + + + + | Color | YELLOWComment: Testing | | EXTERNAL | | | | performed at [facility], [address] | | LAB | | | | [address], | | | | | | [place] [address] | | | | + + + + + + | Clarity, | CLEARComment: Testing | | EXTERNAL | | | Urine | performed at [facility], [address] | | LAB | | | | [address], | | | | | | [place] [address] | | | | + + + + + + | Specific | 1.009Comment: Testing | 1.002 - 1.030 | EXTERNAL | | | [place], | performed at [facility], [address] | | LAB | | | Urine | [address], | | | | | | [place] [address] | | | | + + + + + + | Leukocyte | MODERATE (A)Comment: | | EXTERNAL | | | Esterase, | Testing performed at | | LAB | | | Urine | [facility], [address] | | | | | | [place] | | | | | | [address] | | | | + + + + + + | Nitrite, | NEGATIVEComment: Testing | | EXTERNAL | | | Urine | performed at [facility], [address] | | LAB | | | | [address], | | | | | | [place] [address] | | | | + + + + + + | Urobilinoge | 0.2Comment: Testing | mg/dL | EXTERNAL | | | n, Urine | performed at [facility], [address] | | LAB | | | | [address], | | | | | | [place] [address] | | | | + + + + + + | Protein, | NEGATIVEComment: Testing | mg/dL | EXTERNAL | | | Urine | performed at [facility], [address] | | LAB | | | | [address], | | | | | | [place] [address] | | | | + + + + + + | pH, Urine | 6.0Comment: Testing | 5.0 - 8.0 | EXTERNAL | | | | performed at [facility], [address] | | LAB | | | | [address] [place], | | | | | | [place] [address] | | | | + + + + + + | Blood, | NEGATIVEComment: Testing | | EXTERNAL | | | Urine | performed at [facility], [address] | | LAB | | | | [address], | | | | | | [place] [address] | | | | + + + + + + | Ketones | NEGATIVEComment: Testing | mg/dL | EXTERNAL | | | | performed at [facility], [address] | | LAB | | | | [address], | | | | | | [place] [address] | | | | + + + + + + | Bilirubin, | NEGATIVEComment: Testing | | EXTERNAL | | | Urine | performed at [facility], [address] | | LAB | | | | [address] [place], | | | | | | [place] [address] | | | | + + + + + + | Glucose, | NEGATIVEComment: Testing | mg/dL | EXTERNAL | | | Urine | performed at [facility], [address] | | LAB | | | | [address] [place], | | | | | | [place] [address] | | | | + + + + + + + + | Specimen | + + | | + + + +---------+ + + | Performing | Address | City/State/Zipcode | Phone Number | | Organization | | | | + +---------+ + + | EXTERNAL LAB | | | | + +---------+ + + Urinalysis, Microscopic Only (07/22/2014 5:56 AM PDT) + + + + + + | Component | Value | Ref Range | Performed | Pathologist | | | | | At | Signature | + + + + + + | WBC, UA | 11-15Comment: Testing | 0 - 5 /hpf | EXTERNAL | | | | performed at [facility], [address] | | LAB | | | | [address], | | | | | | [place] [address] | | | | + + + + + + | RBC, UA | 16-25Comment: Testing | 0 - 5 /hpf | EXTERNAL | | | | performed at [facility], [address] | | LAB | | | [address], | | | | | | [place] [address] | | | | + + + + + + | Epithelial | 26-50Comment: Testing | /lpf | EXTERNAL | | | Cells | performed at [facility], [address] | | LAB | | | | [address] [place], | | | | | | [place] [address] | | | | + + + + + + | Bacteria, | NONE SEENComment: | | EXTERNAL | | | UA | CULTURE TO FOLLOWTesting | | LAB | | | | performed at [facility], [address] | | | | | [address] [place], | | | | | | [place] [address] | | | | + + + + + + | HYALINE | NONE SEENComment: | | EXTERNAL | | | CASTS UA | Testing performed at | | LAB | | | | [facility], [address] | | | | | | [place] | | | | | | [address] | | | | + + + + + + + + | Specimen | + + | | + + + +---------+ + + | Performing | Address | City/State/Zipcode | Phone Number | | Organization | | | | + +---------+ + + | EXTERNAL LAB | | | | + +---------+ + + Protime INR (07/22/2014 3:44 AM PDT) + + + + + + | Component | Value | Ref Range | Performed | Pathologist | | | | | At | Signature | + + + + + + | INR | 2.6Comment: REFERENCE | | EXTERNAL | | | [...] | | | | | performed at [facility];[id number] | | | | | | [address];[place], [place] | | | | | | [address] | | | | + + + [...] + +---------+ + + External Lab: RAPHAEL (07/22/2014 3:44 AM PDT) + + + + + + | Component | Value | Ref Range | Performed | Pathologist | | | | | At | Signature | + + + + + + | WBC | 11.27 (H)Comment: | 3.80 - 11.00 | EXTERNAL | | | | Testing performed at | K/uL | LAB | | | | [facility], [address] [facility] | | | | | | [place] | | | | | | [address] | | | | + + + + + + | Non- | 4.06Comment: Testing | 3.70 - 5.10 | EXTERNAL | | | Red Blood | performed at [facility], [address] | M/uL | LAB | | | Cells | [address], | | | | | [address] | [place] [address] | | | | + + + + + + | Hemoglobin | 12.5Comment: Testing | 11.3 - 15.5 | EXTERNAL | | | | performed at [facility], [address] | g/dL | LAB | | | | [address], | | | | | | [place] [address] | | | | + + + + + + | Hematocrit, | 40.1Comment: Testing | 34.0 - 46.0 % | EXTERNAL | | | POC | performed at [facility], [address] | | LAB | | | | [address], | | | | | | [place] [address] | | | | + + + + + + | MCV | 98.6Comment: Testing | 80.0 - 100.0 fl | EXTERNAL | | | | performed at [facility], [address] | | LAB | | | | [address], | | | | | | [place] [address] | | | | + + + + + + | MCH | 30.8Comment: Testing | 27.0 - 34.0 pg | EXTERNAL | | | | performed at [facility], [address] | | LAB | | | | [address], | | | | | | [place] [address] | | | | + + + + + + | MCHC | 31.2 (L)Comment: Testing | 32.0 - 35.5 | EXTERNAL | | | | performed at [facility], [address] | g/dL | LAB | | | | [address], | | | | | | [place] [address] | | | | + + + + + + | RDW-CV | 55.1 (H)Comment: Testing | 37 - 53 fl | EXTERNAL | | | | performed at [facility], [address] | | LAB | | | | [address], | | | | | | [place] [address] | | | | + + + + + + | Platelet | 309Comment: Testing | 150 - 400 K/uL | EXTERNAL | | | Count | performed at [facility], [address] | | LAB | | | Plasma | [address], | | | | | | [place] [address] | | | | + + + + + + | MPV | 8.7Comment: Testing | fl | EXTERNAL | | | | performed at [facility], [address] | | LAB | | | | [place] [place], | | | | | | [place] [address] | | | | + + + + + + | Differentia | AUTOMATEDComment: | | EXTERNAL | | | l Type | Testing performed at | | LAB | | | | [facility], [address] | | | | | | [place] | | | | | | [address] | | | | + + + + + + | % Segmented | 72.50Comment: Testing | % | EXTERNAL | | | | performed at [facility], [address] | | LAB | | | Neutrophils | [address] [place], | | | | | | [place] [address] | | | | + + + + + + | % | 19.86Comment: Testing | % | EXTERNAL | | | Lymphocytes | performed at [facility], [address] | | LAB | | | | [address], | | | | | | [place] [address] | | | | + + + + + + | % Monocytes | 7.00Comment: Testing | % | EXTERNAL | | | | performed at [facility], [address] | | LAB | | | | [address], | | | | | | [place] [address] | | | | + + + + + + | % | 0.21Comment: Testing | % | EXTERNAL | | | Eosinophils | performed at [facility], [address] | | LAB | | | | [address], | | | | | | [place] [address] | | | | + + + + + + | % Basophils | 0.43Comment: Testing | % | EXTERNAL | | | | performed at [facility], [address] | | LAB | | | | [address], | | | | | | [place] [address] | | | | + + + + + + | Absolute | 8.17 (H)Comment: Testing | 1.90 - 7.40 | EXTERNAL | | | Segmented | performed at [facility], [address] | K/uL | LAB | | | Neutrophils | [address], | | | | | | [place] [address] | | | | + + + + + + | Absolute | 2.24Comment: Testing | 1.00 - 3.90 | EXTERNAL | | | Lymphocytes | performed at [facility], [address] | K/uL | LAB | | | | [address], | | | | | | [place] [address] | | | | + + + + + + | Absolute | 0.79Comment: Testing | 0.00 - 0.80 | EXTERNAL | | | Monocytes | performed at [facility], [address] | K/uL | LAB | | | | [address], | | | | | | [place] [address] | | | | + + + + + + | Absolute | 0.02Comment: Testing | 0.00 - 0.50 | EXTERNAL | | | Eosinophils | performed at [facility], [address] | K/uL | LAB | | | | [address], | | | | | | [place] [address] | | | | + + + + + + | Absolute | 0.05Comment: Testing | 0.00 - 0.10 | EXTERNAL | | | Basophils | performed at [facility], [address] | K/uL | LAB | | | | [address], | | | | | | [place] [address] | | | | + + + + + + + + | Specimen | + + | Blood specimen | | (specimen) | + + + +---------+ + + | Performing | Address | City/State/Zipcode | Phone Number | | Organization | | | | + +---------+ + + | EXTERNAL LAB | | | | + +---------+ + + Phosphorus (07/22/2014 3:44 AM PDT) + + + + + + | Component | Value | Ref Range | Performed | Pathologist | | | | | At | Signature | + + + + + + | PHOSPHORUS | 2.7Comment: Testing | 2.3 - 4.8 mg/dL | EXTERNAL | | | | performed at [facility], [address] | | LAB | | | | [address] [place], | | | | | | [place] [address] | | | | + + + + + + + + | Specimen | + + | Blood specimen | | (specimen) | + + + +---------+ + + | Performing | Address | City/State/Zipcode | Phone Number | | Organization | | | | + +---------+ + + | EXTERNAL LAB | | | | + +---------+ + + Magnesium (07/22/2014 3:44 AM PDT) + + + + + + | Component | Value | Ref Range | Performed | Pathologist | | | | | At | Signature | + + + + + + | Magnesium | 1.7Comment: Testing | 1.7 - 2.4 mg/dL | EXTERNAL | | | | performed at [facility], [address] | | LAB | | | | [address] [place], | | | | | | [place] [address] | | | | + + + [...] + +---------+ + + Comprehensive Metabolic Panel (07/22/2014 3:44 AM PDT) + + + + + + | Component | Value | Ref Range | Performed | Pathologist | | | | | At | Signature | + + + + + + | Na | 130 (L)Comment: Testing | 135 - 143 | EXTERNAL | | | | performed at [facility], [address] | mmol/L | LAB | | | | [address] [place], | | | | | | [place] [address] | | | | + + + + + + | K | 3.9Comment: Testing | 3.5 - 4.9 | EXTERNAL | | | | performed at [facility], [address] | mmol/L | LAB | | | | [address] [place], | | | | | | [place] [address] | | | | + + + + + + | Cl | 106Comment: Testing | 99 - 109 mmol/L | EXTERNAL | | | | performed at [facility], [address] | | LAB | | | | [address], | | | | | | [place] [address] | | | | + + + + + + | CO2 | 20 (L)Comment: Testing | 23 - 32 mmol/L | EXTERNAL | | | | performed at [facility], [address] | | LAB | | | | [address], | | | | | | [place] [address] | | | | + + + + + + | Anion Gap | 8Comment: Testing | 5 - 20 mmol/L | EXTERNAL | | | | performed at [facility], [address] | | LAB | | | | [address], | | | | | | [place] [address] | | | | + + + + + + | Glucose, | 98Comment: Testing | 65 - 99 mg/dL | EXTERNAL | | | Fasting | performed at [facility], [address] | | LAB | | | | [address], | | | | | | [place] [address] | | | | + + + + + + | BUN | 19Comment: Testing | 8 - 25 mg/dL | EXTERNAL | | | | performed at [facility], [address] | | LAB | | | | [address], | | | | | | [place] [address] | | | | + + + + + + | Creatinine | 0.69Comment: Testing | 0.50 - 1.00 | EXTERNAL | | | | performed at [facility], [address] | mg/dL | LAB | | | | [address], | | | | | | [place] [address] | | | | + + + + + + | BUN/Creatin | 28Comment: Testing | | EXTERNAL | | | ine Ratio | performed at [facility], [address] | | LAB | | | | [address], | | | | | | [place] [address] | | | | + + + + + + | Calcium | 8.5Comment: Testing | 8.5 - 10.5 | EXTERNAL | | | | performed at [facility], [address] | mg/dL | LAB | | | | [place], | | | | | | [place] [address] | | | | + + + + + + | Protein, | 5.9 (L)Comment: Testing | 6.3 - 8.2 g/dL | EXTERNAL | | | Total | performed at [facility], [address] | | LAB | | | | [place], | | | | | | [place] [address] | | | | + + + + + + | Albumin | 2.8 (L)Comment: Testing | 3.6 - 5.0 g/dL | EXTERNAL | | | | performed at [facility], [address] | | LAB | | | | [place], | | | | | | [place] [address] | | | | + + + + + + | Globulin | 3.1Comment: Testing | 1.3 - 4.9 g/dL | EXTERNAL | | | | performed at [facility], [address] | | LAB | | | | [address], | | | | | | [place] [address] | | | | + + + + + + | A/G Ratio | 0.9 (L)Comment: Testing | 1.0 - 2.4 | EXTERNAL | | | | performed at [facility], [address] | | LAB | | | | [address], | | | | | | [place] [address] | | | | + + + + + + | Bilirubin | 0.4Comment: Testing | 0.1 - 1.5 mg/dL | EXTERNAL | | | Total | performed at [facility], [address] | | LAB | | | | [address], | | | | | | [place] [address] | | | | + + + + + + | ALP, | 124 (H)Comment: Testing | 35 - 115 U/L | EXTERNAL | | | External | performed at [facility], [address] | | LAB | | | | [place], | | | | | | [place] [address] | | | | + + + + + + | AST | 18Comment: Testing | 10 - 45 U/L | EXTERNAL | | | | performed at [facility], [address] | | LAB | | | | [address], | | | | | | [place] [address] | | | | + + + + + + | ALT | 13Comment: Testing | 10 - 65 U/L | EXTERNAL | | | | performed at [facility], [address] | | LAB | | | | [address], | | | | | | [place] [address] | | | | + + + [...] [place], | | | | | | [place] [address] | | | | + + + + + + + + | Specimen | + + | Blood specimen | | (specimen) | + + + +---------+ + + | Performing | Address | City/State/Zipcode | Phone Number | | Organization | | | | + +---------+ + + | EXTERNAL LAB | | | | + +---------+ + + Protime INR (07/21/2014 5:46 AM PDT) + + + + + + | Component | Value | Ref Range | Performed | Pathologist | | | | | At | Signature | + + + + + + | INR | 1.8Comment: REFERENCE | | EXTERNAL | | | [...] | | | | | performed at [facility] | | | | | | [address];[place], [place] | | | | | | [address] | | | | + + + + + + + + | Specimen | + + | Blood specimen | | (specimen) | + + + +---------+ + + | Performing | Address | City/State/Zipcode | Phone Number | | Organization | | | | + +---------+ + + | EXTERNAL LAB | | | | + +---------+ + + External Lab: CBC (07/21/2014 5:46 AM PDT) + + + + + + | Component | Value | Ref Range | Performed | Pathologist | | | | | At | Signature | + + + + + + | WBC | 13.42 (H)Comment: | 3.80 - 11.00 | EXTERNAL | | | | Testing performed at | K/uL | LAB | | | | [facility];[address] | | | | | | [address];[place] [address] | | | | + + + + + + | Non- | 4.10Comment: Testing | 3.70 - 5.10 | EXTERNAL | | | Red Blood | performed at [facility];[address] | M/uL | LAB | | | Cells | [address];[place] | | | | | Counted | [address] | | | | + + + + + + | Hemoglobin | 12.9Comment: Testing | 11.3 - 15.5 | EXTERNAL | | | | performed at [facility];888 | g/dL | LAB | | | | [address];[place] | | | | | | [address] | | | | + + + + + + | Hematocrit, | 40.0Comment: Testing | 34.0 - 46.0 % | EXTERNAL | | | POC | performed at [facility];[address] | | LAB | | | | [address];[place] | | | | | | [address] | | | | + + + + + + | MCV | 97.6Comment: Testing | 80.0 - 100.0 fl | EXTERNAL | | | | performed at [facility];[address] | | LAB | | | | [address];[place] | | | | | | [address] | | | | + + + + + + | MCH | 31.4Comment: Testing | 27.0 - 34.0 pg | EXTERNAL | | | | performed at [facility];[address] | | LAB | | | | [address];[place] | | | | | | [address] | | | | + + + + + + | MCHC | 32.1Comment: Testing | 32.0 - 35.5 | EXTERNAL | | | | performed at [facility];888 | g/dL | LAB | | | | [address];[place] | | | | | | [address] | | | | + + + + + + | RDW-CV | 56.0 (H)Comment: Testing | 37 - 53 fl | EXTERNAL | | | | performed at [facility];[address] | | LAB | | | | [address];[place] | | | | | | [address] | | | | + + + + + + | Platelet | 323Comment: Testing | 150 - 400 K/uL | EXTERNAL | | | Count | performed at [facility];[address] | | LAB | | | Plasma | [address];[place] | | | | | | [address] | | | | + + + + + + | MPV | 7.9Comment: Testing | fl | EXTERNAL | | | | performed at [facility];[address] | | LAB | | | | [address];[place] | | | | | | [address] | | | | + + + + + + | Differentia | AUTOMATEDComment: | | EXTERNAL | | | l Type | Testing performed at | | LAB | | | | [facility];[address];[place] [address] | | | | + + + + + + | % Segmented | 72.96Comment: Testing | % | EXTERNAL | | | | performed at [facility];[address] | | LAB | | | Neutrophils | [address];[place] | | | | | | [address] | | | | + + + + + + | % | 19.69Comment: Testing | % | EXTERNAL | | | Lymphocytes | performed at [facility];[address] | | LAB | | | | [address];[place] | | | | | | [address] | | | | + + + + + + | % Monocytes | 6.53Comment: Testing | % | EXTERNAL | | | | performed at [facility];[address] | | LAB | | | | [address];[place] | | | | | | [address] | | | | + + + + + + | % | 0.04Comment: Testing | % | EXTERNAL | | | Eosinophils | performed at [facility];[address] | | LAB | | | | [address];[place] | | | | | | [address] | | | | + + + + + + | % Basophils | 0.78Comment: Testing | % | EXTERNAL | | | | performed at [facility];[address] | | LAB | | | | [address];[place] | | | | | | [address] | | | | + + + + + + | Absolute | 9.79 (H)Comment: Testing | 1.90 - 7.40 | EXTERNAL | | | Segmented | performed at [facility];[address] | K/uL | LAB | | | Neutrophils | [address];[place] | | | | | | [address] | | | | + + + + + + | Absolute | 2.64Comment: Testing | 1.00 - 3.90 | EXTERNAL | | | Lymphocytes | performed at [facility];[address] | K/uL | LAB | | | | [address];[place] | | | | | | [address] | | | | + + + + + + | Absolute | 0.88 (H)Comment: Testing | 0.00 - 0.80 | EXTERNAL | | | Monocytes | performed at [facility];[address] | K/uL | LAB | | | | [address];[place] | | | | | | [address] | | | | + + + + + + | Absolute | 0.01Comment: Testing | 0.00 - 0.50 | EXTERNAL | | | Eosinophils | performed at [facility];[address] | K/uL | LAB | | | | [address];[place] | | | | | | [address] | | | | + + + + + + | Absolute | 0.11 (H)Comment: Testing | 0.00 - 0.10 | EXTERNAL | | | Basophils | performed at [facility];[address] | K/uL | LAB | | | | [address];[place] | | | | | | [address] | | | | + + + + + + + + | Specimen | + + | Blood specimen | | (specimen) | + + + +---------+ + + | Performing | Address | City/State/Zipcode | Phone Number | | Organization | | | | + +---------+ + + | EXTERNAL LAB | | | | + +---------+ + + Phosphorus (07/21/2014 5:46 AM PDT) + + + + + + | Component | Value | Ref Range | Performed | Pathologist | | | | | At | Signature | + + + + + + | PHOSPHORUS | 2.4Comment: Testing | 2.3 - 4.8 mg/dL | EXTERNAL | | | | performed at [facility];[address] | | LAB | | | | [address];[place], [place] | | | | | | [address] | | | | + + + + + + + + | Specimen | + + | Blood specimen | | (specimen) | + + + +---------+ + + | Performing | Address | City/State/Zipcode | Phone Number | | Organization | | | | + +---------+ + + | EXTERNAL LAB | | | | + +---------+ + + Magnesium (07/21/2014 5:46 AM PDT) + + + + + + | Component | Value | Ref Range | Performed | Pathologist | | | | | At | Signature | + + + + + + | Magnesium | 1.9Comment: Testing | 1.7 - 2.4 mg/dL | EXTERNAL | | | | performed at [facility] | | LAB | | | | [address] [place] | | | | | | [address] | | | | + + + [...] + +---------+ + + Comprehensive Metabolic Panel (07/21/2014 5:46 AM PDT) + + + + + + | Component | Value | Ref Range | Performed | Pathologist | | | | | At | Signature | + + + + + + | Na | 141Comment: Testing | 135 - 143 | EXTERNAL | | | | performed at [facility];[address] | mmol/L | LAB | | | | [address];[place] | | | | | | [address] | | | | + + + + + + | K | 4.0Comment: Testing | 3.5 - 4.9 | EXTERNAL | | | | performed at [facility];[address] | mmol/L | LAB | | | | [address];[place] | | | | | | [address] | | | | + + + + + + | Cl | 110 (H)Comment: Testing | 99 - 109 mmol/L | EXTERNAL | | | | performed at [facility];[address] | | LAB | | | | [address];[place] | | | | | | [address] | | | | + + + + + + | CO2 | 23Comment: Testing | 23 - 32 mmol/L | EXTERNAL | | | | performed at [facility];[address] | | LAB | | | | [address];[place] | | | | | | [address] | | | | + + + + + + | Anion Gap | 12Comment: Testing | 5 - 20 mmol/L | EXTERNAL | | | | performed at [facility];[address] | | LAB | | | | [address];[place] | | | | | | [address] | | | | + + + + + + | Glucose, | 97Comment: Testing | 65 - 99 mg/dL | EXTERNAL | | | Fasting | performed at [facility];[address] | | LAB | | | | [address];[place] | | | | | | [address] | | | | + + + + + + | BUN | 19Comment: Testing | 8 - 25 mg/dL | EXTERNAL | | | | performed at [facility];[address] | | LAB | | | | [address];[place] | | | | | | [address] | | | | + + + + + + | Creatinine | 0.84Comment: Testing | 0.50 - 1.00 | EXTERNAL | | | | performed at [facility];[address] | mg/dL | LAB | | | | [address];[place] | | | | | | [address] | | | | + + + + + + | BUN/Creatin | 23Comment: Testing | | EXTERNAL | | | ine Ratio | performed at [facility];[address] | | LAB | | | | [address];[place] | | | | | | [address] | | | | + + + + + + | Calcium | 8.1 (L)Comment: Testing | 8.5 - 10.5 | EXTERNAL | | | | performed at [facility];[address] | mg/dL | LAB | | | | [address];[place] | | | | | | [address] | | | | + + + + + + | Protein, | 6.5Comment: Testing | 6.3 - 8.2 g/dL | EXTERNAL | | | Total | performed at [facility];[address] | | LAB | | | | [address];[place] | | | | | | [address] | | | | + + + + + + | Albumin | 2.4 (L)Comment: Testing | 3.6 - 5.0 g/dL | EXTERNAL | | | | performed at [facility];[address] | | LAB | | | | [address];[place] | | | | | | [address] | | | | + + + + + + | Globulin | 4.1Comment: Testing | 1.3 - 4.9 g/dL | EXTERNAL | | | | performed at [facility];[address] | | LAB | | | | [address];[place] | | | | | | [address] | | | | + + + + + + | A/G Ratio | 0.6 (L)Comment: Testing | 1.0 - 2.4 | EXTERNAL | | | | performed at [facility];[address] | | LAB | | | | [address];[place] | | | | | | [address] | | | | + + + + + + | Bilirubin | 0.5Comment: Testing | 0.1 - 1.5 mg/dL | EXTERNAL | | | Total | performed at [facility];[address] | | LAB | | | | [address];[place] | | | | | | [address] | | | | + + + + + + | ALP, | 164 (H)Comment: Testing | 35 - 115 U/L | EXTERNAL | | | External | performed at [facility];[address] | | LAB | | | | [address];[place] | | | | | | [address] | | | | + + + + + + | AST | 18Comment: Testing | 10 - 45 U/L | EXTERNAL | | | | performed at [facility];[address] | | LAB | | | | [address];[place] | | | | | | [address] | | | | + + + + + + | ALT | 19Comment: Testing | 10 - 65 U/L | EXTERNAL | | | | performed at [facility];[address] | | LAB | | | | [address];[place] | | | | | | [address] | | | | + + + [...] | | | | | | at [facility];[address] [place] [address] | | | | | | [facility];[place] [address] | | | | + + + + + + + + | Specimen | + + | Blood specimen | | (specimen) | + + + +---------+ + + | Performing | Address | City/State/Zipcode | Phone Number | | Organization | | | | + +---------+ + + | EXTERNAL LAB | | | | + +---------+ + + Troponin I (07/20/2014 5:53 AM PDT) + + + + + + | Component | Value | Ref Range | Performed | Pathologist | | | | | At | Signature | + + + + + + | Troponin I, | <0.020Comment: 0.00 to | 0.00 - 0.10 | EXTERNAL | | | Qual | 0.10 CONSISTENT WITH | ng/mL | LAB | | | | NORMAL POPULATION0.11 | | | | | | to 0.60 CONSISTENT | | | | | | WITH INCREASED RISK FOR | | | | | | ADVERSE OUTCOMES> 0.60 | | | | | | CONSISTENT | | | | | | WITH WHO CRITERIA FOR | | | | | | ACUTE SD Testing | | | | | | performed at [facility];[address] | | | | | | [address];[place], [place] | | | | | | [address] | | | | + + + + + + + + | Specimen | + + | Blood specimen | | (specimen) | + + + +---------+ + + | Performing | Address | City/State/Zipcode | Phone Number | | Organization | | | | + +---------+ + + | EXTERNAL LAB | | | | + +---------+ + + Procalcitonin (07/20/2014 3:54 AM PDT) + + + + + + | Component | Value | Ref Range | Performed | Pathologist | | | | | At | Signature | + + + + + + | Source | PLASMAComment: Testing | | EXTERNAL | | | | performed at [facility];[address] | | LAB | | | | [address] [place];[place], [place] | | | | | | [address] | | | | + + + + + + | PROCALCITON | 0.11Comment: | ng/mL | EXTERNAL | | | IN | INTERPRETIVE | | LAB | | | | INFORMATION: | | | | | | PROCALCITONIN PCT <= | | | | | | 0.5 ng/mL: Low risk | | | | | | for progression to | | | | | | severe systemic | | | | | | bacterial infection | | | | | | (severe sepsis/septic | | | | | | shock). Does not | | | | | | exclude an infection, | | | | | | because localized | | | | | | infections may be | | | | | | associated with such low | | | | | | levels. If PCT is | | | | | | measured very early | | | | | | after bacterial | | | | | | challenge (usually <6 | | | | | | hours), results may | | | | | | still be low and | | | | | | should re-assess PCT | | | | | | 6-24 hours later. PCT | | | | | | >0.5 and <= 2 ng/mL: | | | | | | Moderate risk for | | | | | | progression to severe | | | | | | systemic infection | | | | | | (severe sepsis/septic | | | | | | shock). Other | | | | | | conditions are known | | | | | | to elevate PCT, patient | | | | | | should be closely | | | | | | monitored both | | | | | | clinically and by | | | | | | re-assessing PCT | | | | | | within 6-24 hours. PCT > | | | | | | 2 ng/mL: High | | | | | | likelihood for | | | | | | progression to severe | | | | | | systemic bacterial | | | | | | infection (severe | | | | | | sepsis/septic shock). | | | | | | PCT >= 10 ng/mL: | | | | | | High likelihood of | | | | | | severe sepsis or septic | | | | | | shock.Testing performed | | | | | | at [facility];[address] | | | | | | [address];[place] [address] | | | | + + + + + + + + | Specimen | + + | | + + + +---------+ + + | Performing | Address | City/State/Zipcode | Phone Number | | Organization | | | | + +---------+ + + | EXTERNAL LAB | | | | + +---------+ + + Protime INR (07/20/2014 3:54 AM PDT) + + + + + + | Component | Value | Ref Range | Performed | Pathologist | | | | | At | Signature | + + + + + + | INR | 1.1Comment: REFERENCE | | EXTERNAL | | | [...] | | | | | performed at [facility];[address] | | | | | | [address] [facility];[place], [place] | | | | | | [address] | | | | + + + + + + + + | Specimen | + + | Blood specimen | | (specimen) | + + + +---------+ + + | Performing | Address | City/State/Zipcode | Phone Number | | Organization | | | | + +---------+ + + | EXTERNAL LAB | | | | + +---------+ + + External Lab: CBC (07/20/2014 3:54 AM PDT) + + + + + + | Component | Value | Ref Range | Performed | Pathologist | | | | | At | Signature | + + + + + + | WBC | 14.55 (H)Comment: | 3.80 - 11.00 | EXTERNAL | | | | Testing performed at | K/uL | LAB | | | | [facility], [address] | | | | | | [place] | | | | | | [address] | | | | + + + + + + | Non- | 4.76Comment: Testing | 3.70 - 5.10 | EXTERNAL | | | Red Blood | performed at [facility], [address] | M/uL | LAB | | | Cells | [address], | | | | | Counted | [place] [address] | | | | + + + + + + | Hemoglobin | 15.1Comment: Testing | 11.3 - 15.5 | EXTERNAL | | | | performed at [facility], [address] | g/dL | LAB | | | | [address], | | | | | | [place] [address] | | | | + + + + + + | Hematocrit, | 45.6Comment: Testing | 34.0 - 46.0 % | EXTERNAL | | | POC | performed at [facility], [address] | | LAB | | | | [address], | | | | | | [place] [address] | | | | + + + + + + | MCV | 95.9Comment: Testing | 80.0 - 100.0 fl | EXTERNAL | | | | performed at [facility], [address] | | LAB | | | | [address], | | | | | | [place] [address] | | | | + + + + + + | MCH | 31.7Comment: Testing | 27.0 - 34.0 pg | EXTERNAL | | | | performed at [facility], [address] | | LAB | | | | [address], | | | | | | [place] [address] | | | | + + + + + + | MCHC | 33.1Comment: Testing | 32.0 - 35.5 | EXTERNAL | | | | performed at [facility], [address] | g/dL | LAB | | | | [address], | | | | | | [place] [address] | | | | + + + + + + | RDW-CV | 53.8 (H)Comment: Testing | 37 - 53 fl | EXTERNAL | | | | performed at [facility], [address] | | LAB | | | | [address], | | | | | | [place] [address] | | | | + + + + + + | Platelet | 355Comment: Testing | 150 - 400 K/uL | EXTERNAL | | | Count | performed at [facility], [address] | | LAB | | | Plasma | [address] [place], | | | | | | [place] [address] | | | | + + + + + + | MPV | 8.4Comment: Testing | fl | EXTERNAL | | | | performed at [facility], [address] | | LAB | | | | [address], | | | | | | [place] [address] | | | | + + + + + + | Differentia | MANUALComment: Testing | | EXTERNAL | | | l Type | performed at [facility], [address] | | LAB | | | | [address], | | | | | | [place] [address] | | | | + + + + + + | Segmented | 87Comment: Testing | % | EXTERNAL | | | Neutrophils | performed at [facility], [address] | | LAB | | | Manual | [address] [place], | | | | | | [place] [address] | | | | + + + + + + | % Bands | 6Comment: Testing | % | EXTERNAL | | | | performed at [facility], [address] | | LAB | | | | [address], | | | | | | [place] [address] | | | | + + + + + + | Lymphocytes | 7Comment: Testing | % | EXTERNAL | | | Manual | performed at [facility], [address] | | LAB | | | | [address], | | | | | | [place] [address] | | | | + + + + + + | Absolute | 12.66 (H)Comment: | 1.90 - 7.40 | EXTERNAL | | | Neutrophils | Testing performed at | K/uL | LAB | | | | [facility], [address] | | | | | | [place] | | | | | | [address] | | | | + + + + + + | Bands | 0.87 (H)Comment: Testing | 0.00 - 0.20 | EXTERNAL | | | Manual | performed at [facility], [address] | K/uL | LAB | | | | [address] [place], | | | | | | [place] [address] | | | | + + + + + + | Absolute | 1.02Comment: Testing | 1.00 - 3.90 | EXTERNAL | | | Lymphocytes | performed at [facility], [address] | K/uL | LAB | | | | [place], | | | | | | [place] [address] | | | | + + + + + + | RBC | NORMAL PLT MORPHComment: | | EXTERNAL | | | Morphology | NORMAL RBC MORPHTesting | | LAB | | | | performed at [facility], [address] | | | | | [address] [place] [place], | | | | | | [place] [address] | | | | + + + + + + + + | Specimen | + + | Blood specimen | | (specimen) | + + + +---------+ + + | Performing | Address | City/State/Zipcode | Phone Number | | Organization | | | | + +---------+ + + | EXTERNAL LAB | | | | + +---------+ + + C-Reactive Protein (07/20/2014 3:54 AM PDT) + + + + + + | Component | Value | Ref Range | Performed | Pathologist | | | | | At | Signature | + + + + + + | CRP | 12.0 (H)Comment: Testing | mg/dL | EXTERNAL | | | | performed at [facility];[address] | | LAB | | | | [address] [place];[place], [place] | | | | | | [address] | | | | + + + + + + + + | Specimen | + + | Blood specimen | | (specimen) | + + + +---------+ + + | Performing | Address | City/State/Zipcode | Phone Number | | Organization | | | | + +---------+ + + | EXTERNAL LAB | | | | + +---------+ + + Phosphorus (07/20/2014 3:54 AM PDT) + + + + + + | Component | Value | Ref Range | Performed | Pathologist | | | | | At | Signature | + + + + + + | PHOSPHORUS | 3.2Comment: Testing | 2.3 - 4.8 mg/dL | EXTERNAL | | | | performed at [facility] | | LAB | | | | [facility], [place] | | | | | | [address] | | | | + + + + + + + + | Specimen | + + | Blood specimen | | (specimen) | + + + +---------+ + + | Performing | Address | City/State/Zipcode | Phone Number | | Organization | | | | + +---------+ + + | EXTERNAL LAB | | | | + +---------+ + + Magnesium (07/20/2014 3:54 AM PDT) + + + + + + | Component | Value | Ref Range | Performed | Pathologist | | | | | At | Signature | + + + + + + | Magnesium | 1.8Comment: Testing | 1.7 - 2.4 mg/dL | EXTERNAL | | | | performed at [facility];[address] | | LAB | | | | [address];[place], [place] | | | | | | [address] | | | | + + + [...] + +---------+ + + Comprehensive Metabolic Panel (07/20/2014 3:54 AM PDT) + + + + + + | Component | Value | Ref Range | Performed | Pathologist | | | | | At | Signature | + + + + + + | Na | 137Comment: Testing | 135 - 143 | EXTERNAL | | | | performed at [facility];[address] | mmol/L | LAB | | | | [address];[place] | | | | | | [address] | | | | + + + + + + | K | 3.7Comment: Testing | 3.5 - 4.9 | EXTERNAL | | | | performed at [facility];888 | mmol/L | LAB | | | | [address];[place] | | | | | | [address] | | | | + + + + + + | Cl | 103Comment: Testing | 99 - 109 mmol/L | EXTERNAL | | | | performed at [facility];[address] | | LAB | | | | [address];[place] | | | | | | [address] | | | | + + + + + + | CO2 | 23Comment: Testing | 23 - 32 mmol/L | EXTERNAL | | | | performed at [facility];[address] | | LAB | | | | [address];[place] | | | | | | [address] | | | | + + + + + + | Anion Gap | 15Comment: Testing | 5 - 20 mmol/L | EXTERNAL | | | | performed at [facility];[address] | | LAB | | | | [address];[place] | | | | | | [address] | | | | + + + + + + | Glucose, | 150 (H)Comment: Testing | 65 - 99 mg/dL | EXTERNAL | | | Fasting | performed at [facility];[address] | | LAB | | | | [address];[place] | | | | | | [address] | | | | + + + + + + | BUN | 9Comment: Testing | 8 - 25 mg/dL | EXTERNAL | | | | performed at [facility];[address] | | LAB | | | | [address];[place] | | | | | | [address] | | | | + + + + + + | Creatinine | 0.76Comment: Testing | 0.50 - 1.00 | EXTERNAL | | | | performed at [facility];888 | mg/dL | LAB | | | | [address];[place] | | | | | | [address] | | | | + + + + + + | BUN/Creatin | 12Comment: Testing | | EXTERNAL | | | ine Ratio | performed at [facility];[address] | | LAB | | | | [address];[place] | | | | | | [address] | | | | + + + + + + | Calcium | 8.6Comment: Testing | 8.5 - 10.5 | EXTERNAL | | | | performed at [facility];888 | mg/dL | LAB | | | | [address];[place] | | | | | | [address] | | | | + + + + + + | Protein, | 7.3Comment: Testing | 6.3 - 8.2 g/dL | EXTERNAL | | | Total | performed at [facility];[address] | | LAB | | | | [address];[place] | | | | | | [address] | | | | + + + + + + | Albumin | 2.6 (L)Comment: Testing | 3.6 - 5.0 g/dL | EXTERNAL | | | | performed at [facility];[address] | | LAB | | | | [address];[place] | | | | | | [address] | | | | + + + + + + | Globulin | 4.7Comment: Testing | 1.3 - 4.9 g/dL | EXTERNAL | | | | performed at [facility];[address] | | LAB | | | | [address];[place] | | | | | | [address] | | | | + + + + + + | A/G Ratio | 0.6 (L)Comment: Testing | 1.0 - 2.4 | EXTERNAL | | | | performed at [facility];[address] | | LAB | | | | [address];[place] | | | | | | [address] | | | | + + + + + + | Bilirubin | 0.9Comment: Testing | 0.1 - 1.5 mg/dL | EXTERNAL | | | Total | performed at [facility];888 | | LAB | | | | [address];[place] | | | | | | [address] | | | | + + + + + + | ALP, | 246 (H)Comment: Testing | 35 - 115 U/L | EXTERNAL | | | External | performed at [facility];[address] | | LAB | | | | [address];[place] | | | | | | [address] | | | | + + + + + + | AST | 26Comment: Testing | 10 - 45 U/L | EXTERNAL | | | | performed at [facility];[address] | | LAB | | | | [address];[place] | | | | | | [address] | | | | + + + + + + | ALT | 23Comment: Testing | 10 - 65 U/L | EXTERNAL | | | | performed at [facility];[address] | | LAB | | | | [address];[place] | | | | | | [address] | | | | + + + [...] | | | | | | at [facility];[address];[place] [address] | | | | + + + + + + + + | Specimen | + + | Blood specimen | | (specimen) | + + + +---------+ + + | Performing | Address | City/State/Zipcode | Phone Number | | Organization | | | | + +---------+ + + | EXTERNAL LAB | | | | + +---------+ + + Culture, Urine (07/20/2014 3:21 AM PDT) + + | Specimen | + + | | + + + + + | Narrative | Performed At | + + + | Specimen Description URINE, COLLECTION NOT | EXTERNAL LAB | | GIVEN CULTURE NO GROWTH | | | Testing performed | | | at [facility], [address] [place] [address] | | + + + + +---------+ + + | Performing | Address | City/State/Zipcode | Phone Number | | Organization | | | | + +---------+ + + | EXTERNAL LAB | | | | + +---------+ + + Urinalysis, Reflex Microscopic and/or Culture (07/20/2014 3:21 AM PDT) + + + + + + | Component | Value | Ref Range | Performed | Pathologist | | | | | At | Signature | + + + + + + | Color | YELLOWComment: Testing | | EXTERNAL | | | | performed at [facility], [address] | | LAB | | | | [address], | | | | | | [place] [address] | | | | + + + + + + | Clarity, | CLEARComment: Testing | | EXTERNAL | | | Urine | performed at [facility], [address] | | LAB | | | | [address], | | | | | | [place] [address] | | | | + + + + + + | Specific | 1.007Comment: Testing | 1.002 - 1.030 | EXTERNAL | | | [place], | performed at [facility], [address] | | LAB | | | Urine | [address], | | | | | | [place] [address] | | | | + + + + + + | Leukocyte | SMALL (A)Comment: | | EXTERNAL | | | Esterase, | Testing performed at | | LAB | | | Urine | [facility], [address] | | | | | | [place] | | | | | | [address] | | | | + + + + + + | Nitrite, | NEGATIVEComment: Testing | | EXTERNAL | | | Urine | performed at [facility], [address] | | LAB | | | | [address] [place], | | | | | | [place] [address] | | | | + + + + + + | Urobilinoge | 0.2Comment: Testing | mg/dL | EXTERNAL | | | n, Urine | performed at [facility], [address] | | LAB | | | | [address], | | | | | | [place] [address] | | | | + + + + + + | Protein, | NEGATIVEComment: Testing | mg/dL | EXTERNAL | | | Urine | performed at [facility], [address] | | LAB | | | | [address], | | | | | | [place] [address] | | | | + + + + + + | pH, Urine | 6.5Comment: Testing | 5.0 - 8.0 | EXTERNAL | | | | performed at [facility], [address] | | LAB | | | | [address] [place], | | | | | | [place] [address] | | | | + + + + + + | Blood, | SMALL (A)Comment: | | EXTERNAL | | | Urine | Testing performed at | | LAB | | | | [facility], [address] | | | | | | [place] | | | | | | [address] | | | | + + + + + + | Ketones | TRACE (A)Comment: | mg/dL | EXTERNAL | | | | Testing performed at | | LAB | | | | [facility], [address] | | | | | | [place] | | | | | | [address] | | | | + + + + + + | Bilirubin, | NEGATIVEComment: Testing | | EXTERNAL | | | Urine | performed at [facility], [address] | | LAB | | | | [address], | | | | | | [place] [address] | | | | + + + + + + | Glucose, | NEGATIVEComment: Testing | mg/dL | EXTERNAL | | | Urine | performed at [facility], [facility] | | LAB | | | | [address], | | | | | | [place] [address] | | | | + + + + + + + + | Specimen | + + | Urine specimen | | (specimen) | + + + +---------+ + + | Performing | Address | City/State/Zipcode | Phone Number | | Organization | | | | + +---------+ + + | EXTERNAL LAB | | | | + +---------+ + + Urinalysis, Microscopic Only (07/20/2014 3:21 AM PDT) + + + + + + | Component | Value | Ref Range | Performed | Pathologist | | | | | At | Signature | + + + + + + | WBC, UA | 6-10Comment: Testing | 0 - 5 /hpf | EXTERNAL | | | | performed at [facility], [address] | | LAB | | | | [address] [place], | | | | | | [place] [address] | | | | + + + + + + | RBC, UA | 1-5Comment: Testing | 0 - 5 /hpf | EXTERNAL | | | | performed at [facility], [address] | | LAB | | | [address], | | | | | | [place] [address] | | | | + + + + + + | Epithelial | 16-25Comment: Testing | /lpf | EXTERNAL | | | Cells | performed at [facility], [address] | | LAB | | | | [address] [place], | | | | | | [place] [address] | | | | + + + + + + | Bacteria, | NONE SEENComment: | | EXTERNAL | | | UA | CULTURE TO FOLLOWTesting | | LAB | | | | performed at [facility], [address] | | | | | | [address] [place], | | | | | | [place] [address] | | | | + + + + + + | HYALINE | NONE SEENComment: | | EXTERNAL | | | CASTS UA | Testing performed at | | LAB | | | | [facility], [address] | | | | | | [place] | | | | | | [address] | | | | + + + + + + + + | Specimen | + + | | + + + +---------+ + + | Performing | Address | City/State/Zipcode | Phone Number | | Organization | | | | + +---------+ + + | EXTERNAL LAB | | | | + +---------+ + + Troponin I (07/20/2014 12:22 AM PDT) + + + + + + | Component | Value | Ref Range | Performed | Pathologist | | | | | At | Signature | + + + + + + | Troponin I, | <0.020Comment: 0.00 to | 0.00 - 0.10 | EXTERNAL | | | Qual | 0.10 CONSISTENT WITH | ng/mL | LAB | | | | NORMAL POPULATION0.11 | | | | | | to 0.60 CONSISTENT | | | | | | WITH INCREASED RISK FOR | | | | | | ADVERSE OUTCOMES> 0.60 | | | | | | CONSISTENT | | | | | | WITH WHO CRITERIA FOR | | | | | | ACUTE SD Testing | | | | | | performed at [facility];[address] | | | | | | [address] [facility];[place], [place] | | | | | | [address] | | | | + + + + + + + + | Specimen | + + | Blood specimen | | (specimen) | + + + +---------+ + + | Performing | Address | City/State/Zipcode | Phone Number | | Organization | | | | + +---------+ + + | EXTERNAL LAB | | | | + +---------+ + + US Renal Limited (07/19/2014 11:26 PM PDT) + + | Specimen | + + | | + + + + + | Impressions | Performed At | + + + | 1. Unremarkable renal ultrasound. | | + + + + + + | Narrative | Performed At | + + + | [facility] HISTORY: 58 years. Female. | | | Flank pain. TECHNIQUE: Sonographic evaluation of the kidneys and | | | bladder was performed. COMPARISON: 04/22/2014 CT abdomen | | | FINDINGS: The right kidney measures 10.5 x 6.3 x 4.3 cm. The left | | | kidney measures 9.2 x 5.5 x 5.2cm. The kidneys have a normal | | | cortical echotexture without evidence of hydronephrosis. The | | | pre-void bladder volume is 140cc. Patient refused to void and a post | | | void residual was not obtained. The bilateral ureteral jets are | | | visualized. | | + + + + + | Procedure Note | + + | Judson, Rad Conversion - 11/24/2018 6:38 AM PDT [facility] | | HISTORY:58 years. Female. Flank pain. TECHNIQUE:Sonographic evaluation of the kidneys | | and bladder was performed. COMPARISON:04/22/2014 CT abdomen FINDINGS:The right kidney | | measures 10.5 x 6.3 x 4.3 cm. The left kidney measures 9.2 x 5.5 x 5.2cm. The kidneys | | have a normal cortical echotexture without evidence of hydronephrosis. The pre-void | | bladder volume is 140cc. Patient refused to void and a post void residual was not | | obtained. The bilateral ureteral jets are visualized. IMPRESSION: 1. Unremarkable renal | | ultrasound. | | | |COMPARISON: | |04/22/2014 CT abdomen | | | |FINDINGS: | |The right kidney measures 10.5 x 6.3 x 4.3 cm. The left kidney measures 9.2 x 5.5 x 5.2cm. | | | |The kidneys have a normal cortical echotexture without evidence of hydronephrosis. | | | |The pre-void bladder volume is 140cc. Patient refused to void and a post void residual was not obtained. The bilateral ureteral jets are visualized. | | | |IMPRESSION: | |1. Unremarkable renal ultrasound. | | | | | + + XR Chest 1 Vw (07/19/2014 10:21 PM PDT) + + | Specimen | + + | | + + + + + | Narrative | Performed At | + + + | This is a non-reportable procedure without a radiologist report and | | | is used for image storage only | | + + + + + | Procedure Note | + + | Tez Roper Sagar - 11/24/2018 6:38 AM PDT This is a non-reportable procedure | | without a radiologist report and isused for image storage only | + + MRSA NAAT (07/19/2014 8:59 PM PDT) + + | Specimen | + + | | + + + + + | Narrative | Performed At | + + + | [facility]ES(NOSE) | EXTERNAL LAB | | Testing performed at [address];[place] [address] MRSA PCR | | | NEGATIVE Testing performed at | | | [address];[place] [address] | | + + + + +---------+ + + | Performing | Address | City/State/Zipcode | Phone Number | | Organization | | | | + +---------+ + + | EXTERNAL LAB | | | | + +---------+ + + Ki FLORES (07/19/2014 8:19 PM PDT) + + + + + + | Component | Value | Ref Range | Performed | Pathologist | | | | | At | Signature | + + + + + + | INR | 1.1Comment: REFERENCE | | EXTERNAL | | | [...] | | | | | performed at [facility];[address] | | | | | | [facility];[place], [place] | | | | | | [address] | | | | + + + [...] + +---------+ + + External Lab: RAPHAEL (07/19/2014 8:19 PM PDT) + + + + + + | Component | Value | Ref Range | Performed | Pathologist | | | | | At | Signature | + + + + + + | WBC | 19.56 (H)Comment: | 3.80 - 11.00 | EXTERNAL | | | | Testing performed at | K/uL | LAB | | | | [facility];[address];[place] [address] | | | | + + + + + + | Non- | 4.56Comment: Testing | 3.70 - 5.10 | EXTERNAL | | | Red Blood | performed at [facility];[address] | M/uL | LAB | | | Cells | [address];[place] | | | | | Counted | [address] | | | | + + + + + + | Hemoglobin | 14.5Comment: Testing | 11.3 - 15.5 | EXTERNAL | | | | performed at [facility];[address] | g/dL | LAB | | | | [address];[place] | | | | | | [address] | | | | + + + + + + | Hematocrit, | 43.4Comment: Testing | 34.0 - 46.0 % | EXTERNAL | | | POC | performed at [facility];[address] | | LAB | | | | [address];[place] | | | | | | [address] | | | | + + + + + + | MCV | 95.2Comment: Testing | 80.0 - 100.0 fl | EXTERNAL | | | | performed at [facility];[address] | | LAB | | | | [address];[place] | | | | | | [address] | | | | + + + + + + | MCH | 31.8Comment: Testing | 27.0 - 34.0 pg | EXTERNAL | | | | performed at [facility];[address] | | LAB | | | | [address];[place] | | | | | | [address] | | | | + + + + + + | MCHC | 33.4Comment: Testing | 32.0 - 35.5 | EXTERNAL | | | | performed at [facility];[address] | g/dL | LAB | | | | [address];[place] | | | | | | [address] | | | | + + + + + + | RDW-CV | 53.4 (H)Comment: Testing | 37 - 53 fl | EXTERNAL | | | | performed at [facility];[address] | | LAB | | | | [address];[place] | | | | | | [address] | | | | + + + + + + | Platelet | 335Comment: Testing | 150 - 400 K/uL | EXTERNAL | | | Count | performed at [facility];[address] | | LAB | | | Plasma | [address];[place] | | | | | | [address] | | | | + + + + + + | MPV | 7.8Comment: Testing | fl | EXTERNAL | | | | performed at [facility];[address] | | LAB | | | | [address];[place] | | | | | | [address] | | | | + + + + + + | Differentia | AUTOMATEDComment: | | EXTERNAL | | | l Type | Testing performed at | | LAB | | | | [facility];[address];[place] [address] | | | | + + + + + + | % Segmented | 68.15Comment: Testing | % | EXTERNAL | | | | performed at [facility];[address] | | LAB | | | Neutrophils | [address];[place] | | | | | | [address] | | | | + + + + + + | % | 21.73Comment: Testing | % | EXTERNAL | | | Lymphocytes | performed at [facility];[address] | | LAB | | | | [address];[place] | | | | | | [address] | | | | + + + + + + | % Monocytes | 9.37Comment: Testing | % | EXTERNAL | | | | performed at [facility];[address] | | LAB | | | | [address];[place] | | | | | | [address] | | | | + + + + + + | % | 0.18Comment: Testing | % | EXTERNAL | | | Eosinophils | performed at [facility];[address] | | LAB | | | | [address];[place] | | | | | | [address] | | | | + + + + + + | % Basophils | 0.57Comment: Testing | % | EXTERNAL | | | | performed at [facility];[address] | | LAB | | | | [address];[place] | | | | | | [address] | | | | + + + + + + | Absolute | 13.33 (H)Comment: | 1.90 - 7.40 | EXTERNAL | | | Segmented | Testing performed at | K/uL | LAB | | | Neutrophils | [facility];[address];[place] [address] | | | | + + + + + + | Absolute | 4.25 (H)Comment: Testing | 1.00 - 3.90 | EXTERNAL | | | Lymphocytes | performed at [facility];[address] | K/uL | LAB | | | | [address];[place] | | | | | | [address] | | | | + + + + + + | Absolute | 1.83 (H)Comment: Testing | 0.00 - 0.80 | EXTERNAL | | | Monocytes | performed at [facility];[address] | K/uL | LAB | | | | [address];[place] | | | | | | [address] | | | | + + + + + + | Absolute | 0.04Comment: Testing | 0.00 - 0.50 | EXTERNAL | | | Eosinophils | performed at [facility];[address] | K/uL | LAB | | | | [address];[place] | | | | | | [address] | | | | + + + + + + | Absolute | 0.11 (H)Comment: Testing | 0.00 - 0.10 | EXTERNAL | | | Basophils | performed at [facility];[address] | K/uL | LAB | | | | [address];[place] | | | | | | [address] | | | | + + + + + + + + | Specimen | + + | Blood specimen | | (specimen) | + + + +---------+ + + | Performing | Address | City/State/Zipcode | Phone Number | | Organization | | | | + +---------+ + + | EXTERNAL LAB | | | | + +---------+ + + Phosphorus (07/19/2014 8:19 PM PDT) + + + + + + | Component | Value | Ref Range | Performed | Pathologist | | | | | At | Signature | + + + + + + | PHOSPHORUS | 3.4Comment: Testing | 2.3 - 4.8 mg/dL | EXTERNAL | | | | performed at [facility];[address] | | LAB | | | | [address];[place] | | | | | | [address] | | | | + + + + + + + + | Specimen | + + | Blood specimen | | (specimen) | + + + +---------+ + + | Performing | Address | City/State/Zipcode | Phone Number | | Organization | | | | + +---------+ + + | EXTERNAL LAB | | | | + +---------+ + + Magnesium (07/19/2014 8:19 PM PDT) + + + + + + | Component | Value | Ref Range | Performed | Pathologist | | | | | At | Signature | + + + + + + | Magnesium | 1.2 (L)Comment: Testing | 1.7 - 2.4 mg/dL | EXTERNAL | | | | performed at [facility];[address] | | LAB | | | | [address];[place], [place] | | | | | | [address] | | | | + + + + + + + + | Specimen | + + | Blood specimen | | (specimen) | + + + +---------+ + + | Performing | Address | City/State/Zipcode | Phone Number | | Organization | | | | + +---------+ + + | EXTERNAL LAB | | | | + +---------+ + + Basic Metabolic Panel (07/19/2014 8:19 PM PDT) + + + + + + | Component | Value | Ref Range | Performed | Pathologist | | | | | At | Signature | + + + + + + | Na | 135Comment: Testing | 135 - 143 | EXTERNAL | | | | performed at [facility];[address] | mmol/L | LAB | | | | [address];[place] | | | | | | [address] | | | | + + + + + + | K | 3.1 (L)Comment: Testing | 3.5 - 4.9 | EXTERNAL | | | | performed at [facility];[address] | mmol/L | LAB | | | | [address];[place] | | | | | | [address] | | | | + + + + + + | Cl | 101Comment: Testing | 99 - 109 mmol/L | EXTERNAL | | | | performed at [facility];[address] | | LAB | | | | [address];[place] | | | | | | [address] | | | | + + + + + + | CO2 | 26Comment: Testing | 23 - 32 mmol/L | EXTERNAL | | | | performed at [facility];[address] | | LAB | | | | [address];[place] | | | | | | [address] | | | | + + + + + + | Anion Gap | 12Comment: Testing | 5 - 20 mmol/L | EXTERNAL | | | | performed at [facility];[address] | | LAB | | | | [address];[place] | | | | | | [address] | | | | + + + + + + | Glucose, | 109 (H)Comment: Testing | 65 - 99 mg/dL | EXTERNAL | | | Fasting | performed at [facility];[address] | | LAB | | | | [address];[place] | | | | | | [address] | | | | + + + + + + | BUN | 9Comment: Testing | 8 - 25 mg/dL | EXTERNAL | | | | performed at [facility];[address] | | LAB | | | | [address];[place] | | | | | | [address] | | | | + + + + + + | Creatinine | 0.69Comment: Testing | 0.50 - 1.00 | EXTERNAL | | | | performed at [facility];[address] | mg/dL | LAB | | | | [address];[place] | | | | | | [address] | | | | + + + + + + | BUN/Creatin | 12Comment: Testing | | EXTERNAL | | | ine Ratio | performed at [facility];[address] | | LAB | | | | [address];[place] | | | | | | [address] | | | | + + + + + + | Calcium | 8.5Comment: Testing | 8.5 - 10.5 | EXTERNAL | | | | performed at [facility];[address] | mg/dL | LAB | | | | [address];[place], [place] | | | | | | [address] | | | | + + + [...] | | | | | | at [facility];[address];[place] [address] | | | | + + + [...] + | Diagnosis | + + | Pyelonephritis Pyelonephritis, unspecified | + + documented in this encounter
--- OUTSIDE RECORDS SUMMARY | ~2019-11-03 | XMS | Encounter Summary ---
Demographics + + + | Address | [address] | | | [place] [address] | + + + | Home Phone | | + + + | Preferred Language | Unknown | + + + | Marital Status | | + + + | Roman Catholic Affiliation | Unknown | + + [...] | | + + +---------+ + | Terrancesachi Goetz | ECON | Unknown | | + + +---------+ + Care Team Providers + +------+ + | Care Portable Grinding Machine Operator Name | Role | Phone | + +------+ + | No, Physician | PCP | Unavailable | + +------+ + Reason for Visit + + + | Reason | Comments | + + + | Follow-up | Established patient presents for follow up regarding seton. Pt | | | c/o bright red bleeding. | + + + Encounter Details +--------+---------+ + + + | Date | Type | Department | Care Team | Description | +--------+---------+ + + + | 03/27/ | Office | [facility] | [place], | Rectovaginal fistula | | 2019 | Visit | GENERAL SURGERY [address] | [address] | (Primary Dx) | | | | [facility] [address] | [facility] [address] | | | | | [place], [place] | [place] [address] | | | | | [address] | [phone] | | | | | [phone] | | | +--------+---------+ + + + [...] documented as of this encounter Progress Notes Jordon Elkins ARNP - 03/27/2019 2:40 PM PSTColorectal Progress Note S: Chief Complaint: Rectovaginal fistulas Smita Willingham is a very pleasant 63 y.o. female who is well known to our clinic. She has a h istory of severe Crohn's disease now on Humira with GI. She is status post seton placement for 3 anterior midline fistula in ano's and 1 right posterior. She also underwent a laparos copic colostomy with Dr. Bocanegra. She presents to the clinic today to discuss removing th e setons as they are bothersome to her. They make it difficult for her and her to h ave an intimate relationship. She would like to discuss also removing the distal rectal seg ment at some point however currently she has been plagued with recurrent UTIs and feels that she does not have enough strength to undergo another major surgery. She still takes the t incture of opium prescribed by her GI doctor to help in solidifying her stool. O: Physical Exam Vitals signs and nursing note reviewed. Constitutional: General: She is not in acute distress. Appearance: She is not toxic-appearing or diaphoretic. Cardiovascular: Rate and Rhythm: Normal rate. Pulmonary: Effort: Pulmonary effort is normal. Abdominal: General: Abdomen is flat. Genitourinary: Skin: General: Skin is warm and dry. Neurological: Mental Status: She is alert. Psychiatric: Mood and Affect: Mood normal. Behavior: Behavior normal. There were no vitals filed for this visit. A/P: Pleasant 63-year-old female patient with a history of Crohn's disease status post philippe n placement for 3 rectovaginal fistulas and a right posterior fistula in ano, and laparoscop ic end colostomy. At some point in the future we can discuss completion proctectomy for her . At this point the patient would like to wait for this which is fine. The patient is dive rted and she is on Humira for her Crohn's disease and has doing as well as can be expected. I discussed removing the setons with Dr. Bocanegra. The setons have been in place for quit e some time now and the tracts are mature, she is on Humira treatment and she is diverted. We can remove the setons at this point and see how she does. If she develops a recurrent pe rianal abscess she will need an urgent procedure for incision and drainage and seton placeme nt. This was discussed with the patient and she stated understanding she wanted to proceed with removing the setons which we did. I removed the 3 anterior midline rectovaginal setons and the posterior midline seton. At this point she is to follow-up as needed if she has a recurrence of her perianal disease or if she would like to proceed with completion proctecto my. Patient states agreement understanding of the plan documented in th is encounter Plan of Treatment Not on filedocumented [...]
--- OUTSIDE RECORDS SUMMARY | ~2019-11-03 | XMS | Encounter Summary ---
Demographics + + + | Address | [address] | | | [place] [address] | + + + | Home Phone | | + + + | Preferred Language | Unknown | + + + | Marital Status | | + + + | Rastafari Affiliation | Unknown | + + + | Race | Unknown | + + + | Ethnic Group | Unknown | + + + Author + + + | Author | [facility] | | | and [place] | + + + | Organization | [facility] | | | [...] Team Providers + +------+ + | Care Boiler Control Technician Name | Role | Phone | + +------+ + | No, Physician | PCP | Unavailable | + +------+ + Encounter Details +--------+ + + + + | Date | Type | Department | Care Team | Description | +--------+ + + + + | 04/12/ | Orders Only | [facility] | [place], | | | 2018 | | GENERAL SURGERY [address] | [address] | | | | | [address] | [address] | | | | | [place], [place] | [place] [address] | | | | | [address] | [phone] | | | | | [phone] | | | +--------+ + + + [...]
--- OUTSIDE RECORDS SUMMARY | ~2019-11-03 | XMS | Encounter Summary ---
Demographics + + + | Address | [address] | | | [place] [address] | + + + | Home Phone | | + + + | Preferred Language | Unknown | + + + | Marital Status | | + + + | Anabaptist Affiliation | Unknown | + + + | Race | Unknown | + + + | Ethnic Group | Unknown | + + + Author + + + | Author | [facility] | | | and [place] | + + + | Organization | [facility] | | | and [place] | + + + | Address | Unknown | + + + | Phone | Unavailable | + + + Support + + +---------+ + | Name | Relationship | Address | Phone | + + +---------+ + | Kole Hartley | ECON | Unknown | | + + +---------+ + | Terrance Sofy | ECON | Unknown | | + + +---------+ + Care Team Providers + +------+ + | Care Skiver Machine Name | Role | Phone | + +------+ + PCP | Unavailable | + +------+ + Encounter Details +--------+ + + + + | Date | Type | Department | Care Team | Description | +--------+ + + + + | 04/12/ | Hospital | [facility] | Dionicio, | Acute | | 2015 - | Encounter | [facility] | Bonnieroxane Jones, | gastroenteritis; PAF | | | | INTENSIVE CARE UNIT | MD J[address] | (paroxysmal atrial | | 04/23/ | | [address] | HEATHER E KAMI, | fibrillation) ([facility]); | | 2014 | | [place], [place] | [place] [address] | Sepsis([phone]) | | | | [address] | [phone] | (HCC); Acute | | | | [phone] | | systolic heart | | | | | | failure (HCC); Acute | | | | | | respiratory failure | | | | | | ([facility]); Aspiration | | | | | | pneumonia ([facility]); | | | | | | COPD (chronic | | | | | | obstructive | | | | | | pulmonary disease) | | | | | | ([facility]); Crohn's | | | | | | disease ([facility]); | | | | | | Embolism and | | | | | | thrombosis of | | | | | | splenic artery | | | | | | (HCC); Microcytic | | | | | | anemia; Narcotic | | | | | | dependence ([facility]) | +--------+ + + + + Social [...] documented as of this encounter Progress Notes Gracia Trice Yasmin - 04/23/2014 5:42 AM PST Progress Notes by Trice Fagan MD at 04/23/14541 Author: Trice Fagan MD Service: Flavor Maker Author Type: Flavor Maker Filed: 04/23/1407 Date of Service: 04/23/14541 Status: Addendum Systems Development Manager: Trice Fagan MD (Physician) Related Notes: Original Note by Trice Fagan MD (Physician) filed at 04/23/14905 [facility] Service: Flavor Maker Progress Note Mackenzie Hartley 58 y.o. Hospital Day: LOS: 11 days Post-Op Day: one s/p ex lap , splenctomy and placement of 5 lap pads Transfer not Consulting Physicians Treatment Team: Consulting Physician: Bony Petty MD Consulting Physician: Bogdan Moser DO Admitting Provider: Bonnie Greenberg MD SUBJECTIVE Patient Summary: Per Dr Greenberg: The patient is a 58 y.o. 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 She underwent imaging of her abdomen which did not reveal any acute process. She was empirically started on broad spectrum antibiotics given her immunosuppressed state. She developed a bilateral lower lobe infiltrate, R>L, which was presumed to be due to aspiratio n, and in the next days, worsened (was initially on BiPAP) but was intubated on 04/12/13 and t ransfered from [facility] to [facility]. SEE assessment and plan for summary of issues and treatment plan. PAST MEDICAL HISTORY Past Medical History Diagnosis Date COPD (chronic obstructive pulmonary disease) Crohn's disease Immunocompromised due to corticosteroids Recurrent aphthous ulcer E-coli UTI Hypokalemia Microcytic anemia Neuropathy Hypertension Embolism and thrombosis of splenic artery Other chronic pain GERD (gastroesophageal reflux disease) Osteoporosis Depression Chronic diarrhea Gastroesophageal reflux disease with hiatal hernia PAST SURGICAL HISTORY Past Surgical History Procedure Laterality Date Abdominal surgery Small intestine surgery Lysis of adhesions Cholecystectomy Appendectomy Hysterectomy Tonsillectomy Portacath placement Left Esophagogastroduodenoscopy N/A 04/21/2014 Procedure: ESOPHAGOGASTRODUODENOSCOPY; Surgeon: Bony Petty MD; Location: [facility]; Service: Gastroenterology; Laterality: N/A; ALLERGIES Allergies Allergen Reactions Demerol [Meperidine] Other (See Comments) Unknown Erythromycin Other (See Comments) unknown Levofloxacin Other (See Comments) tendinitis Reglan [Metoclopramide] Agitation Unknown Penicillins Nausea and Vomiting MEDICATIONS PRIOR TO ADMISSION Prescriptions prior to admission Medication Sig Dispense Refill omeprazole (PRILOSEC) 40 MG capsule Take 40 mg by mouth 2 (two) times daily. SCHEDULED MEDICATIONS albuterol 6 puff Inhalation Q4H fluconazole (DIFLUCAN) IV 200 mg Intravenous Q24H hydrocortisone sodium succinate PF 50 mg Intravenous Q12H insulin aspart 0-10 Units Subcutaneous Q6H ipratropium 6 puff Inhalation Q4H levothyroxine 26 mcg Intravenous Daily pantoprazole 40 mg Intravenous QAM AC protamine IVPB 50 mg Intravenous Once sodium chloride 0.9 % 10 mL Intravenous Q12H GISSELL CONTINUOUS INFUSIONS dexmedetomidine in NS 0.6 mcg/kg/hr (04/23/14101) dextrose dextrose 5 % and 0.9 % NaCl Stopped (04/23/147) fentaNYL in NS 5 mcg/mL 100 mcg/hr (04/23/14101) norepinephrine in D5W 64 mcg/mL 15 mcg/min (04/23/14 0436) sodium chloride (IV) 15 mL/hr at 04/22/14 1700 OBJECTIVE VITAL SIGNS Temp: [97.4 F (36.3 C)-101.3 F (38.5 C)] 98.6 F (37 C) Heart Rate: [76-153] 107 Resp: [16-35] 17 BP: (57-138)/(31-78) 93/44 mmHg Arterial Line BP: (0-161)/(0-84) 98/52 mmHg FiO2 : [30 %-92 %] 50 % CVP (mean): [5 mmHg-102 mmHg] 9 mmHg (04/23 0000) PA catheter wave form: [-] Intake/Output Summary (Last 24 hours) at 04/23/14 0542 Last data filed at 04/23/14 0528 Gross per 24 hour Intake 70338 ml Output 6589 ml Net 7458 ml EXAM GEN: sedated on vent NEURO: was neurologically intact prior to intubation HEENT: exophthalmos b/l from baseline. HEART: RRR, S1/S2, no murmur, rub or gallop LUNGS: clear b/l diminished as base b/l left chest port ABD: increasing in distension since OR but still soft no bs vac with gross sangous more neela n serous blood draining EXTR: grossly anasarca. SKIN: warm DATA Recent Labs Lab 04/23/14 0355 04/23/14 0239 04/23/14 0148 04/23/14 0124 WBC 15.3* 14.5* -- 31.4* HGB 6.3* 9.6* 10.9* 9.7* HCT 18.5* 29.4* 32* 29.3* PLT 139* 57* -- 155 Recent Labs Lab 04/23/14 0355 04/22/14 2025 04/22/14 1443 04/22/14 0400 04/20/14 0311 NA 147* 151* 153* 145* < > 144* K 3.7 4.0 3.9 4.0 < > 3.1* CL 113* 112* 114* 107 < > 108 CO2 28 30 21* 29 < > 31 BUN 37* 37* 34* 30* < > 25 CREATININE 1.21* 1.34* 1.47* 0.64 < > 0.58 PROT 3.8* -- -- 5.1* -- 4.8* BILITOT 1.0 -- -- 0.5 -- 0.5 ALT PENDING -- -- 11 -- 15 AST PENDING -- -- 20 -- 31 < > = values in this interval not displayed. Recent Labs Lab 04/23/14354 04/22/14202404/22/14 1443 INR 1.3 1.4 1.9 PROBLEM LIST Principal Problem: Intraperitoneal hemorrhage 20 cm x 12 cm x 11 cm 04/22/2014 Active Problems: Acute respiratory failure Crohn's disease Microcytic anemia Aspiration pneumonia COPD (chronic obstructive pulmonary disease) Embolism and thrombosis of splenic artery Acute gastroenteritis Acute systolic heart failure LVEF 30% Narcotic dependence PAF (paroxysmal atrial fibrillation) Stricture esophagus dilated with bougue 20 niuean 04/21/2014 ASSESSMENT & PLAN Intrabd bleeding Abd/spleen Retroperitoneal bleeding and concern for gastro-splenic collateral vessels bleeding. From ct scan abd pelvis with oral and iv contrast [facility] 08/19/2010 "There is minimal enhancement of the spleen, which is an interval change realtive to the pr evious study....the proximal celiac trunk does show enhancement, although there does appear to be filling defect in the distal celiac trunk with minimal enhancement in the proximal bra nches of the celiac trunk..the spleenic vein does show mild enhancement, which is likely rel ated to some collateral vessels seen in the left upper quadrant.... focal thrombosis or athe deshawn verseus embolic clot in the distal abdominal aorta. Afternoon of 04/22/14 pt became hypotensive and was found to be in hemorragic shock. Pt had received ultrasound of abd/pelvis which showed: FINDINGS: Large left upper quadrant complex mass measuring 22 x 13 x 12 cm which is nonvascular, like ly representing a large hematoma. Left pleural effusion. IMPRESSION: Large complex nonvascular mass of the left upper abdomen measuring 22 x 13 x 12 cm in size, most consistent with hematoma. Pt receiving massive blood products transfusion. I received pt on 10 mcg of levophed. Anastasia nued with blood products transfusion. Risk/benefits to iv contrast ct abd pelvis- Ordered no n contrst ct as pt with increasing cre, low urine output and hypotension with concerns of ac samish renal failure and wanted additional info. Concern that pt would need contrast for possib le future IR. Non contrast ct likely enough for diagnosis. Ct done showed. Abdomen/pelvis: The nasogastric tube is unchanged and well-positioned. The liver appears no rmal. Cholecystectomy clips are observed. The pancreas, kidneys, and adrenal glands are morp hologically normal, but displaced to the right due to a large left retroperitoneal mixed att enuation probable hematoma, measuring 39 cm greatest craniocaudal dimension by 19 cm greates t transverse dimension by 14 cm greatest AP dimension. A probable hematoma also involves the left iliacus muscle, measuring 9 x 5 x 9 cm. The urinary bladder is nondistended due to an indwelling Wolf catheter. No definitive ureteral stones are found. Moderate atherosclerotic calcification is present within the abdominal aorta and its branches. No free intraperitoneal air is found. No worrisome bone lesions are noted. No pathologicall y enlarged lymph nodes are seen. No dilated bowel loops are found. IMPRESSION: 1. Large left retroperitoneal hematoma, as above. 2. Moderate left iliacus muscle hematoma. 3. Moderate bilateral layering pleural effusions with increasing bilateral lower lobe subse gmental atelectasis. 4. Mild nonspecific patchy airspace disease in the aerated portions Intrabdominal organs displaced by hematoma. Stomach, left kidney pushed to right side. Stom ach right of midline. Pt developed abd compartment syndrome and despite aggressive transfusi on hemaglobin trending down. Called general surgeon general education professor. No interventional radiology. Pt taken to OR for ex lap. Colon and small bowel dusky on first inspection and abd eviscerate d under pressure. Involuted spleen removed and retroperitoneal bleeding seen. Bowels were we ll perfused at end of case. 5 lap pads placed in retroperitoneal area and vac dressing place d. Despite aggressive transfusions and replacement of coagulation factors pt continued to blee d and needed continuous transfusions to maintain bp. Vac canister filled up 2 x =1000 cc ove r approx 1.5 hrs mostly sanguinous fluid. Called Surgeon Dr. Moser to discuss case and agreed with transfer. Concern pt needs IR to establish if this is bleeding that is embolizable and if not pt need exploration with aggressive packing of retroperitoneum with hemostatic products and aggress brady packing material. At the time of 6am 04/23/14 Number of blood products given approx 18 PRBC 9 ffp 5plts 4 cryo Pt has received more products since that time. Surgical history from [facility] records Small bowel resection with 17 inches removed fro her Crohn's disease- Done by Dr. Madan Gordon APPY Hysterectomy Tonsillectomy abd adenoidectomy Left suclavian rolando cath for remicade NEURO: On fentanyl ggt and precidex ggt. Ct head 04/22/14 follow up s/p spontaneous intrabd bleed and hypotension. NO acute findings. IMPRESSION: 1. No acute intracranial pathology CV: Acute issue Hemorrhagic Shock secondary to retroperitoneal/ intrabd bleeding Pt was on heparin ggt for bridging treatment for outpt coumadin treatment for clotting diso rder. Pt was in therapeutic range at time of spontaneous bleed. 04/21/14 ptt 58 on 04/22/14 ptt wer e 50 and 55. Massive transfusion of blood products. Pt has been on levophed during this resuscitation as high as 12mcg now at 7:53am 04/23/14 of f of levophed. Contining with massive blood transfusion. Flight crew to have 8 units PRBC available for transport and other blood products being mad e ready for transport as well. ONE episode that I found for PAF: Paroxysmal Atrial Fib during this hospitalization. From hosptial records her pt was in resp failure on BIPAP on 04/15/14when she had an episo de of afib where she was given amiodarone. Has been in sinus rhythm. HTN- home medications listed from 04/06/15 H and P listed HTN home meds as lisinopril/hy drochlorothiazide unknown dose and metoprolol 25 mg po BID. Reported Idiopathic Cardiomyopathy: LVEF 30% by ECHO ([facility]). Normal EF 60-65% ECHO at [facility] 04/20/14 Impression 1. Overall left ventricular systolic function is normal with, an EF between 60 - 65 %. 2. The right ventricle is normal in size and function. 3. No signficant valvular abnormalit ies are noted. 3. A small to moderate-sized left pleural effusion is present. PULM: Acute Resp failure. Aspiration Pneumonia. Current smoker Time line 04/12/14 Pt intubated 04/13/14 Pt extubated 04/15/14 Pt on BIPAP 04/16/14 Pt re-intubated. Current vent settings AC mode rate 16 TV 460 peep 8 and Fio2 50%= ABG 7.436/ 43/122 at 5:4 4 am 04/23/14 She has been in treatment for b/l pneumonia- possible aspiration pneumonia. Pt with reflux and has recent admission 04/06/15 for abd issues with N/V. Family confirmed that pt has had episodes of vomiting at home prior to this admission ad [facility]. This could have been due to her esophageal stricture which was just diagnosed 04/21/14 and treated with dilatation. Last sputum 04/19/14 Description SPUTUM GRAM STAIN GREATER THAN 10 WBCS/LPF GRAM STAIN LESS THAN 10 SEC/LPF GRAM STAIN NO ORGANISMS SEEN CULTURE 1+ CULTURE MATTHIEU ALBICANS A CULTURE Testing performed at [facility], [address] [place] [address] Resulting PCP negative. ID: B/L Aspiration pneumonia During this hospitalization pt has been repeatedly cultured. Sputum from 04/12/14 and no organism +1 matthieu albicans. Blood cultures have been negative and urine cultures hav e been negative. Pt was on Zosyn and Vancomycin IV which were d/c by day team 04/22/14. Pt remained on diflucan which was originally started for concern of esophagitis-egd show ed no infection. Would recommend considering monitoring for pneumonia and issues related to intraabd iss ues. 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 Would have low threshold to cover for opportunistic infections. Consider restarting abx in this severely ill asplenic pt. PCP smear shows no pneumocystis. c diff negative 04/14/14, 04/19/14. Immune compromised: On Remecade as out pt. From [facility] positive blood culture from 04/08/14 Staph capitis S to vanco, cipr, gent, levo, tigecycline I clinda. GI/NUTRITION: Crohn's disease. " for at least 40 yrs" As an outpt pt was on prilosec, remicade ( every 6 weeks via rolando cath) and prednisone 5mg po daily ( from 04/06/2014 H and P admission for n/v/d abd pain and dehydration [place], [place]) Unknown last colonoscopy. Unknown last EGD as outpt. GI was consulted here for care in Crohn's but also for complaints that pt has not been a ble to eat lately secondary to sever pain with eating and has had " ulcers in mouth and thro at" reported by . Pt received EGD to work up this intolerance for po intake. EGD reve aled esophageal stricture which was dilated and pt changed from pepcid to protonix. EGD 04/21/14 FINDINGS In the esophagus, there was evidence of peptic stricture at the EG junction level with some mild erosive reflux esophagitis. The esophagus was dilated using Savary dilator over the gu idewire. Initially, 18 mm was used and then I was able to see an opening at the upper esopha rere sphincter and EG junction level and this was followed by 22 mm Savary dilation which suzette wed good opening at the upper esophageal sphincter level as well as EG junction level. Good hemostasis was seen. No esophageal candidiasis was seen. In the stomach there were no thicke amber folds but diffuse scattered erythema was noted. No ulcerations were seen. Retroflexed vi ew of cardia and fundus appeared unremarkable. Pylorus appeared normal and patent. The duodenal bulb through the third portion of the duodenum were without any ulcerations, e rosions, or mucosal abnormalities. IMPRESSION 1. Benign peptic esophageal stricture at the upper esophagus sphincter level and at EG junc tion level. 2. Erosive reflux esophagitis. 3. Mild gastritis. 4. Normal duodenum. RECOMMENDATIONS IV Protonix and once the patient is extubated and ready to eat, she should be on p.o. myles n-pump inhibitor for extended time. In the meantime, any aspirin or NSAIDs need to be avoide d, at least for the next 3 days. Nutrition: Prealbumin 21.6 on 04/20/14 Tube feeding on hold. RENAL/LYTES: Pt with good urine outpt throughout this hospitalization. Prior to intraabd bleed 04/23/14 BUN 30 and cre 0.64 Pt developed abd compartment syndrome s/p massive transfusion. By report from surgeon, col on and gi tract dusky at first and upon entering abd released compartment which was under pr essure. At end of case colon and small bowel perfusing well and normal appearance. Urine out put improved after surgery. BUN 37 and cre 1.21 this AM 04/23/14 HEME: Chronic issue Unknown clotting disorder. does not know the clinical diagnosis of clotting disorder. Unknown if pt had work u p with hemotologist. Acquired record from [facility] and discussed 04/21/14 night with obed nd and daughter to acquire records from [facility] where pt has had additional work up in the past . From [facility] records. Confirmed that pt is on outpt pt treatment with coumadin. Note from 04/06/14 pt on coumadin 5mg po q daily. Ct scan 08/19/10 documents this splenic artery with minimal enhancement, splenic vein with p ossible filling from collateral and focal thrombus or athroma versus embolic clot in the dis isha abdominal aorta. ENDO: DM: fingersticks and insulin Pt with hypoglycemia this night as low as approx 50. Amp D50 given and D5NS started. Mon itor fingersticks closely. hypothyriodism- new? Labs were sent as pt with an unclear history and has clinical signs of hypothyriodism with exophthamous on presentation. (prior to massive transfusion) Abnormal results can occur secondary to acute illness but in light of clinical exam conserv atively started levothyroxine at 25mcg q daily. Will need further work up when stable as out pt. Results for MACKENZIE HARTLEY ( ) as of 04/23/2014 06:43 Ref. Range 04/20/2014 03:11 TSH Latest Range: 0.45-5.10 uIU/mL 0.39 (L) FREE T4 Latest Range: 0.7-1.5 ng/dL 0.6 (L) MUSC/SKIN: No acute lesions. Early mobilization and PT once able. Chronic pain issues. Fentanyl infusion. PROPHYLAXIS: Stress ulcer prophylaxis: H2 jarrod- protonix DVT prophylaxis:SCD VAP bundle:chlorhexadine oral care, HOB >30 degrees. Spoke with Pt's through this nigh and have kept him updated. Questions answered. Disposition: ICU care as above. Code Status: Full Code *Please bill 180 minutes of critical care time spent evaluating the patient, reviewing the data and formulating a plan exclusive of all other procedures. Trice Fagan MD 04/23/2014 5:42 AM onversio n Transaction, Provider Unknown - 04/23/2014 2:20 AM PSTFormatting of this note might be di fferent from the original. OR Nursing by Yokasta Torrez RN at 04/23/14219 Author: Yokasta Torrez RN Service: (none) Author Type: Registered Nurse Filed: 04/23/14219 Date of Service: 04/23/14219 Status: Signed Systems Development Manager: Yokasta Torrez RN (Registered Nurse) 5 Laps left in patient post op for packing. chTrice rowland - 04/23/2014 12:22 AM PSTFormatting of this note might be different from t he original. Significant Event by Trice Fagan MD at 04/23/1421 Author: Trice Fagan MD Service: Flavor Maker Author Type: Flavor Maker Filed: 04/23/1440 Date of Service: 04/23/1421 Status: Addendum Systems Development Manager: Trice Fagan MD (Physician) Related Notes: Original Note by Trice Fagan MD (Physician) filed at 04/23/1438 Received signout of pt. Concern for location of bleeding to assess diagnosis and treatment plan. Also want to rule out any spontanous bleeding in other places i.e. Head so ct scan of head, chest, abd and pelvis ordered. Risk and benefits to doing ct scan of chest abd and pel vis with IV contrast thought off. Pt with significant change in urine output and increasing cre. IV contrast would be another blow to her kidney and could place her into kidney failure . Non contrast ct scan with serial cbc could likely give diagnosis first and then re-assess if need iv contrast for further work up. Pt received ct scan- I reviewed them: pending offi christina read. Ct head appears to have no acute pathology- no bleed. Ct scan of abd pelvis revie ls that spleen has been destroyed and large left upper quadrant hematoma and blood. Pt has r eceived 6 units of blood is on 10mcg of levopohed with no change in hemaglobin. Pt with acti ve bleeding intrabd by ct scan with spleenic injury and transfusion of 6 units of blood and with no change in hemaglobin level. I called Dr. Moser and updated him on pt's condition and that non contrast ct scan done. I discussed my concerns and if he needs a ct scan with [facility] but pt is currently on pressors and on 7th and 8th unit. He will come in to see pt. Reported that he will call OR. I called pt's proxy her and updated him on results diagnosis and plan of management . He is coming in now. Lead nurse and pt's nurse updated. Addition blood products ordered and being transfused. Cc time 35 min nonprocedural time Jannet Goldberg MD - 04/22/2014 8:11 PM PSTFormatting of this note might be different from the origin al. Progress Notes by Jannet Shields MD at 04/22/142010 Author: Jannet Shields MD Service: Flavor Maker Author Type: Flavor Maker Filed: 04/22/142118 Date of Service: 04/22/142010 Status: Addendum Systems Development Manager: Jannet Shields MD (Physician) Related Notes: Original Note by Jannet Shields MD (Physician) filed at 04/22/142106 [facility] Service: Flavor Maker Progress Note Mackenzie Hartley 58 y.o. Hospital Day: LOS: 10 days Post-Op Day: * No surgery found * Consulting Physicians Treatment Team: Consulting Physician: Bony Petty MD Admitting Provider: Bonnie Greenberg MD SUBJECTIVE Patient Summary: Per Dr Greenberg: The patient is a 58 y.o. 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 She underwent imaging of her abdomen which did not reveal any acute process. She was empirically started on broad spectrum antibiotics given her immunosuppressed state. She developed a bilateral lower lobe infiltrate, R>L, which was presumed to be due to aspiratio n, and in the next days, worsened (was initially on BiPAP) but was intubated on 04/12/13. She was formerly a DNR but she revised her code status. ICU Timeline: 04/12/14: Intubated, admitted to the ICU 04/13/14: Extubated 04/15/14: BIPAP, Atrial Fib treated with Amiodarone 04/16/14: Intubated 04/17/14: CXR shows developing bilateral upper lobe infiltrates. Care conference with family 04/16 to discuss prognosis given re intubation 04/19/14: Care conference with Flavor Maker/AIMS. Continue with full treatment. Heparin infusi on was started due to the splenic artery thrombosis. 04/20/14: Dr. Petty was consult from GI to scope the patient prior to extubation. 04/22/14: Hemorrhagic shock from intraperitoneal bleed on heparin, [place], Right IJ Cordis, 6 units PRBC, 2 units platlets, 2 units FFP, 2 units cryo, Events Overnight: This AM Hct 30 with Platelet count above 300K. On heparin for hypercoagu able state and celicac and spleenic artery thrombosis. She went into shock and we thought i nitially it was septic shock. However when we placed an a line the blood looked like koolai d it was so dilute so we recognized she was in hemorrhagic shock. We placed a cordis and tr asfused blood products as noted above. The abdominal ultrasound showed LUQ hematoma with ma ss 20 cm x 12 cm x 11 cm. Consulted both gen surgery and IR. Shanti felt we shlould try stop the bleeding by correcting the coagulopathy and treat the patient conservatively. Manjinder goodwin agreed and stated tthat a CT CAP with contrast would be need before he could consider g oing after a bleeding site to stop it. Due to contrast being needed and the fact that contr ast on top of her hemorrhagic shock may be lethal to her kidneys he agreed if conservative m easures worked to stop the bleeding he would postpone a CT. PAST MEDICAL HISTORY Past Medical History Diagnosis Date COPD (chronic obstructive pulmonary disease) Crohn's disease Immunocompromised due to corticosteroids Recurrent aphthous ulcer E-coli UTI Hypokalemia Microcytic anemia Neuropathy Hypertension Embolism and thrombosis of splenic artery Other chronic pain GERD (gastroesophageal reflux disease) Osteoporosis Depression Chronic diarrhea Gastroesophageal reflux disease with hiatal hernia PAST SURGICAL HISTORY Past Surgical History Procedure Laterality Date Abdominal surgery Small intestine surgery Lysis of adhesions Cholecystectomy Appendectomy Hysterectomy Tonsillectomy Portacath placement Left Esophagogastroduodenoscopy N/A 04/21/2014 Procedure: ESOPHAGOGASTRODUODENOSCOPY; Surgeon: Bony Petty MD; Location: [facility]; Service: Gastroenterology; Laterality: N/A; ALLERGIES Allergies Allergen Reactions Demerol [Meperidine] Other (See Comments) Unknown Erythromycin Other (See Comments) unknown Levofloxacin Other (See Comments) tendinitis Reglan [Metoclopramide] Agitation Unknown Penicillins Nausea and Vomiting MEDICATIONS PRIOR TO ADMISSION Prescriptions prior to admission Medication Sig Dispense Refill omeprazole (PRILOSEC) 40 MG capsule Take 40 mg by mouth 2 (two) times daily. SCHEDULED MEDICATIONS albumin human albuterol 6 puff Inhalation Q4H fluconazole (DIFLUCAN) IV 200 mg Intravenous Q24H hydrocortisone sodium succinate PF 50 mg Intravenous Q12H insulin aspart 0-10 Units Subcutaneous Q6H ipratropium 6 puff Inhalation Q4H levothyroxine 26 mcg Intravenous Daily pantoprazole 40 mg Intravenous QAM AC piperacillin-tazobactam 3.375 g Intravenous Q8H protamine IVPB 50 mg Intravenous Once QUEtiapine 25 mg Oral BID sodium chloride 0.9 % 10 mL Intravenous Q12H GISSELL vancomycin 1,500 mg Intravenous Q24H CONTINUOUS INFUSIONS amiodarone infusion Stopped (04/22/14 1250) dexmedetomidine in NS 0.6 mcg/kg/hr (04/22/141945) dextrose EPINEPHrine in D5W 32 mcg/mL Stopped (04/22/14 1434) fentaNYL in NS 5 mcg/mL 100 mcg/hr (04/22/141946) heparin 50 units/mL in Dextrose 5% Stopped (04/22/14 1250) norepinephrine in D5W 64 mcg/mL 10 mcg/min (04/22/141922) propofol Stopped (04/22/140) sodium chloride (IV) 15 mL/hr at 04/22/14 1700 vasopressin in NS 0.4 unit/mL Stopped (04/22/141928) OBJECTIVE VITAL SIGNS Temp: [97 F (36.1 C)-100.9 F (38.3 C)] 100 F (37.8 C) Heart Rate: [64-153] 101 Resp: [16-34] 23 BP: (57-138)/(31-78) 90/55 mmHg Arterial Line BP: (0-161)/(0-84) 103/58 mmHg FiO2 : [35 %-72 %] 35 % Intake/Output Summary (Last 24 hours) at 04/22/142010 Last data filed at 04/22/14 1800 Gross per 24 hour Intake 8543 ml Output 1365 ml Net 7178 ml EXAM GEN: sedated and intubated NEURO: GCS [id number] + 8T pupils reactive b/l 3mm moves 4 ext purposfully HEENT: sclerae clear, nonicteric, New cordis right IJ HEART: RRR, S1/S2, no murmur LUNGS: light course breath sounds b/l ABD: soft, nondistended, +Bs, left sided prominence in LUQ palpable hematoma EXTR: edema +4 at feet b/l, new A line right femoral Diffuse generalized edema, clubbing or cyanosis, PICC line left upper extremity. SKIN: warm, no e/o skin breakdown over the occiput, scapulae, elbows, sacrum or heels DATA Recent Labs Lab 04/22/14 1732 04/22/14 1443 04/22/14 0400 WBC 33.5* 35.3* -- 23.1* HGB 8.4* 8.3* | 7.8* -- 8.7* HCT 24.8* 26.5* | 23* < > 29.0* PLT 228 78* -- 330 < > = values in this interval not displayed. Recent Labs Lab 04/22/14 1443 04/22/14 0400 04/21/14 2309 04/21/14 1536 04/20/14 0311 NA 153* 145* -- 149* < > 144* K 3.9 4.0 3.6 4.2 < > 3.1* CL 114* 107 -- 110* < > 108 CO2 21* 29 -- 35* < > 31 BUN 34* 30* -- 30* < > 25 CREATININE 1.47* 0.64 -- 0.87 < > 0.58 PROT -- 5.1* -- -- -- 4.8* BILITOT -- 0.5 -- -- -- 0.5 ALT -- 11 -- -- -- 15 AST -- 20 -- -- -- 31 < > = values in this interval not displayed. Recent Labs Lab 04/22/14 1443 04/22/14 0400 04/21/14 0349 INR 1.9 1.1 1.3 IMAGING ECHO 04/20/13 Impression 1. Overall left ventricular systolic function is normal with, an EF between 60 - 65 %. 2. The right ventricle is normal in size and function. 3. No signficant valvular abnormalit ies are noted. 3. A small to moderate-sized left pleural effusion is present. PROBLEM LIST Principal Problem: Intraperitoneal hemorrhage 20 cm x 12 cm x 11 cm 04/22/2014 Active Problems: Acute respiratory failure Acute systolic heart failure LVEF 30% Narcotic dependence PAF (paroxysmal atrial fibrillation) Stricture esophagus dilated with bougue 20 niuean 04/21/2014 Crohn's disease Microcytic anemia Aspiration pneumonia COPD (chronic obstructive pulmonary disease) Embolism and thrombosis of splenic artery Acute gastroenteritis ASSESSMENT & Plan NEURO: Metabolic Encephalopathy: With shock today worse Mental status still purposeful but escobar s not follow commands Social: Kole updated by phone at 8:30 PM told about intraperitoneal bleed an d hematoma due to anticoagulation and improved LVEF from prior ECHO. CV: Splenic artery thrombosis. Anticoagulation reversed with protamine and blood products PAF: Paroxysmal Atrial Fib treated with amiodarone now staying in SR. No rate controllin g agents at this time. Consider BB once BP stable. Idiopathic Cardiomyopathy: LVEF 60% here at [facility] improved over the 30% noted in [place] Troponin elevation: Troponin of 2-3 likely related to demand ischemia will follow PULM: Pulmonary Edema: resolved Acute Resp Failure: Will work toward extubation when stable and meet criteria with josé antonio tion holiday and SBT GI/NUTRITION: Crohn's disease. On hydrocortisone IV for chronic steroid dependence (50mg Q8hrs). On Re micaide every 6 weeks. After Jovanny has been consult it to scope the patient prior to extubati ng suite get an idea of any underlying etiology Nutrition: TF held due to shock with bleeding Esophogeal stricture: dilated by Dr Petty with a 20 niuean robert 04/21/14 Intraperitoneal bleed/Hemorrhagic Shock: While on heparin. Heparin DC'ed and protami ne given. Hct initially 29% in AM but dropped to below 10% with bleeding and platelets drop ped to 80K and fibrinogen to 80 and INR up to 1.9. Hence given 6 units of PRBC's, 2 units o f FFP, 2 units of cryo and 2 units of platelets. Will follow counts q 4 hours and maintain i n acceptable range. Discussed with Dr Moser from Gen Surgery and Dr Jacobo from IR and w e all agree on a conservative approach initially. RENAL/LYTES: Renal function: ARF related to hemorrhagic shock today ID: Aspiration PNA. treated now for ten days will stop antibiotics, procalcitonin is low w ill stop antibiotics. Immune compromised: On Remecade as out pt HEME: Chronic microcytic anemia. Likely from anemia of chronic disease. Concern for low flow to her baseline poor gi function with old anastomotic line. Insure perfusion -one unit prbc. Spleenic artery thrombosis: stopped heparin due to intraperitoneal bleed ENDO: DM: fingersticks and insuline MUSC/SKIN: No acute lesions. Chronic changes on arms. Early mobilization and PT once able. Chronic pain issues. Fentanyl infusion. PROPHYLAXIS: Stress ulcer prophylaxis: protonix DVT prophylaxis: SCD VAP bundle:chlorhexadine oral care, HOB >30 degrees. . Disposition: ICU care as above. Kole her updated by me at 8:30 PM Code Status: Full Code *Please bill 120 minutes of critical care time spent evaluating the patient, reviewing the data and formulating a plan exclusive of all other procedures. JANNET SHIELDS MD 04/22/2014 8:11 PM onversio n Transaction, Provider Unknown - 04/22/2014 1:15 PM PSTFormatting of this note might be di fferent from the original. Progress Notes by Cher Bailey RN at 04/22/14 1315 Author: Cher Bailey RN Service: (none) Author Type: Registered Nurse Filed: 04/22/14 8780 Date of Service: 04/22/14 1315 Status: Signed Systems Development Manager: Cher Bailey RN (Registered Nurse) Patient increasingly hypotensive and now becoming hypoxic. Dr. Shields and Kassandra Kaur ca lled to room. Emergency arterial line line. ABG with H/H drawn. H/H extremely low. Emergent cordis placed. Patient to receive 4 units PRBCs. Diagnostic imaging ordered to find source o f bleed. Heparin stopped. Protamine given. Grisel Brown RN ICU onver roshan Transaction, Provider Unknown - 04/22/2014 11:22 AM PST Case Management by LEVI Acharya at 04/22/14 1122 Author: LEVI Acharya Service: (none) Author Type: Radiographic Technologist Filed: 04/22/14 1124 Date of Service: 04/22/141121 Status: Signed Systems Development Manager: LEVI Acharya (Radiographic Technologist) Attended morning rounds. No family present during rounds. Pt remains vented. Care Conferenc e on Tuesday with pt's daughters and . Goals for care are continued aggressive suppor t. onver roshan Transaction, Provider Unknown - 04/22/2014 8:15 AM PST Therapy Progress Note by Rich Jiménez, PT at 04/22/14814 Author: Rich Jiménez PT Service: (none) Author Type: Physical Therapist Filed: 04/22/14 1458 Date of Service: 04/22/14814 Status: Signed Systems Development Manager: Rich Jiménez PT (Physical Therapist) 04/22/14814 PT Last Visit PT Received On 04/22/14 Requires PT Follow Up On hold;No Other Comments Comments Pt. has not been appropriate for PT. Will at this time d/c from acute PT caseload and await new orders when/if appropriate for PT down the road onver roshan Transaction, Provider Unknown - 04/21/2014 6:22 PM PST Progress Notes by Taylor Trevino RN at 04/21/141821 Author: Taylor Trevino RN Service: (none) Author Type: Registered Nurse Filed: 04/21/141824 Date of Service: 04/21/141821 Status: Signed Systems Development Manager: Taylor Trevino RN (Registered Nurse) Attempted to call pt's Norm [phone] to obtain consent to give blood. No answe r, will attempt to call again soon. TAYLOR TREVINO 04/21/2014 onver roshan Kapooraction, Provider Unknown - 04/21/2014 4:46 PM PST Progress Notes by Darline Hartley RN at 04/21/14 1646 Author: Darline Hartley RN Service: (none) Author Type: Registered Nurse Filed: 04/21/14 1647 Date of Service: 04/21/141645 Status: Signed Systems Development Manager: Darline Hartley RN (Registered Nurse) Savary dilators used incrementally at 18Fr and 20Fr. DARLINE HARTLEY onver roshan Transaction, Provider Unknown - 04/21/2014 3:30 PM PST Progress Notes by Taylor Trevino RN at 04/21/14 1530 Author: Taylor Trevino RN Service: (none) Author Type: Registered Nurse Filed: 04/21/14 1557 Date of Service: 04/21/141529 Status: Signed Systems Development Manager: Taylor Trevino RN (Registered Nurse) Dr Petty at bedside to asses pt. Orders for NPO received. Stopped tube feeding and flush ed OG with 20 ML h2o. TAYLOR TREVINO 04/21/2014 onver roshan Transaction, Provider Unknown - 04/21/2014 1:40 PM PST Progress Notes by Leah Chris RPH at 04/21/14 1340 Author: Leah Chris RPH Service: (none) Author Type: Pharmacist Filed: 04/21/14 134 Date of Service: 04/21/141339 Status: Signed Systems Development Manager: Leah Chris RPH (Pharmacist) Day 10 Vanco 1500mg (19.1 mg/kg) IV q 24h Todays Scr= 0.61, WBC= 19.2 with estim CrCl= 105.1 ml/min Vanco Tr at 1242 = 15.6 (15-20 mcg/ml) Level is within range by small margin. Will back-up tomorrow's dose By a few hours to give level a bump. Pharmacist: LEAH CHRIS 04/21/2014 1:40 PM az Young, PT - 04/21/2014 10:15 AM PSTFormatting of this note might be different from t velvet original. Therapy Progress Note by Jaz Mobley PT at 04/21/14 1015 Author: Jaz Mobley PT Service: (none) Author Type: Physical Therapist Filed: 04/21/14 1017 Date of Service: 04/21/14 1015 Status: Signed Systems Development Manager: Jaz Mobley PT (Physical Therapist) 04/21/14 1015 PT Last Visit PT Received On 04/21/14 Reason for Treatment Deconditioning Requires PT Follow Up On hold Follow up PT Only? Yes Other Comments Comments Pt still intubated and per RN pt is not getting out of bed and they may be having a care conference today. chamara Trice Rushingelyn - 04/21/2014 10:08 AM PSTFormatting of this note might be different from the jonathon jorge. Progress Notes by Trice Fagan MD at 04/21/14 1008 Author: Trice Fagan MD Service: Flavor Maker Author Type: Flavor Maker Filed: 04/21/14 2300 Date of Service: 04/21/14 1008 Status: Signed Systems Development Manager: Trice Fagan MD (Physician) [facility] Service: Flavor Maker Progress Note Mackenzie Hartley 58 y.o. Hospital Day: LOS: 9 days Post-Op Day: * No surgery found * Consulting Physicians Treatment Team: Consulting Physician: Eric Chavez MD Consulting Physician: Bony Petty MD Admitting Provider: Bonnie Greenberg MD SUBJECTIVE Patient Summary: Per Dr Greenberg: The patient is a 58 y.o. 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 She underwent imaging of her abdomen which did not reveal any acute process. She was empirically started on broad spectrum antibiotics given her immunosuppressed state. She developed a bilateral lower lobe infiltrate, R>L, which was presumed to be due to aspiratio n, and in the next days, worsened (was initially on BiPAP) but was intubated on 04/12/13. She was formerly a DNR but she revised her code status. ICU Timeline: 04/12/14: Intubated, admitted to the ICU 04/13/14: Extubated 04/15/14: BIPAP, Atrial Fib treated with Amiodarone 04/16/14: Intubated 04/17/14: CXR shows developing bilateral upper lobe infiltrates. Care conference with family 04/16 to discuss prognosis given re intubation 04/19/14: Care conference with Flavor Maker/AIMS. Continue with full treatment. Heparin infusi on was started due to the splenic artery thrombosis. 04/20/14: Dr. Petyt was consult from GI to scope the patient prior to extubation. Events Overnight: elevated WBC persistant, EGD done -strictcher-dilated. Sodium increasing free water added.anemic and a unit of blood given. PAST MEDICAL HISTORY Past Medical History Diagnosis Date COPD (chronic obstructive pulmonary disease) Crohn's disease Immunocompromised due to corticosteroids Recurrent aphthous ulcer E-coli UTI Hypokalemia Microcytic anemia Neuropathy Hypertension Embolism and thrombosis of splenic artery Other chronic pain GERD (gastroesophageal reflux disease) Osteoporosis Depression Chronic diarrhea Gastroesophageal reflux disease with hiatal hernia PAST SURGICAL HISTORY Past Surgical History Procedure Laterality Date Abdominal surgery Small intestine surgery Lysis of adhesions Cholecystectomy Appendectomy Hysterectomy Tonsillectomy Portacath placement Left ALLERGIES Allergies Allergen Reactions Demerol [Meperidine] Other (See Comments) Unknown Erythromycin Other (See Comments) unknown Levofloxacin Other (See Comments) tendinitis Reglan [Metoclopramide] Agitation Unknown Penicillins Nausea and Vomiting MEDICATIONS PRIOR TO ADMISSION Prescriptions prior to admission Medication Sig Dispense Refill omeprazole (PRILOSEC) 40 MG capsule Take 40 mg by mouth 2 (two) times daily. SCHEDULED MEDICATIONS albuterol 6 puff Inhalation Q4H famotidine 20 mg Oral BID Or famotidine 20 mg Intravenous BID fluconazole (DIFLUCAN) IV 200 mg Intravenous Q24H furosemide 20 mg Intravenous Q12H hydrocortisone sodium succinate PF 50 mg Intravenous Q12H insulin aspart 0-10 Units Subcutaneous Q6H ipratropium 6 puff Inhalation Q4H levothyroxine 26 mcg Intravenous Daily piperacillin-tazobactam 3.375 g Intravenous Q8H QUEtiapine 25 mg Oral BID sodium chloride 0.9 % 10 mL Intravenous Q12H GISSELL vancomycin 1,500 mg Intravenous Q24H CONTINUOUS INFUSIONS dextrose fentaNYL in NS 5 mcg/mL 100 mcg/hr (04/20/14 2259) heparin 50 units/mL in Dextrose 5% 12 Units/kg/hr (04/20/14 2222) norepinephrine in D5W 64 mcg/mL propofol 50 mcg/kg/min (04/21/14 0704) sodium chloride (IV) 30 mL/hr at 04/15/14 1839 OBJECTIVE VITAL SIGNS Temp: [98.8 F (37.1 C)-99.3 F (37.4 C)] 99.1 F (37.3 C) Heart Rate: [67-115] 92 Resp: [16-18] 16 BP: (86-132)/(50-76) 108/54 mmHg FiO2 : [40 %-41 %] 41 % Intake/Output Summary (Last 24 hours) at 04/21/14 1008 Last data filed at 04/21/14 0800 Gross per 24 hour Intake 4599 ml Output 2766 ml Net 1833 ml EXAM GEN: sedated NEURO: puils reactive b/l 3mm moves 4 ext purposfully HEENT: sclerae clear, nonicteric HEART: RRR, S1/S2, no murmur LUNGS: light course breath sounds b/l ABD: soft, nondistended, +Bs EXTR: edema +4 at feet b/l Diffuse generalized edema, clubbing or cyanosis, PICC line left upper extremity. SKIN: warm, no e/o skin breakdown over the occiput, scapulae, elbows, sacrum or heels DATA Recent Labs Lab 04/21/14 0349 04/20/14 0430 04/19/14 0252 WBC 19.2* 21.3* 18.2* HGB 8.2* 8.9* 9.7* HCT 27.1* 29.8* 30.8* PLT 340 373 388 Recent Labs Lab 04/21/14 0349 04/20/14 2353 04/20/14 1810 04/20/14 0311 04/19/14 2106 NA 147* -- -- -- 144* 150* K 4.1 3.4* 3.8 < > 3.1* 4.1 CL 110* -- -- -- 108 113* CO2 34* -- -- -- 31 29 BUN 29* -- -- -- 25 25 CREATININE 0.61 -- -- -- 0.58 0.72 PROT -- -- -- -- 4.8* -- BILITOT -- -- -- -- 0.5 -- ALT -- -- -- -- 15 -- AST -- -- -- -- 31 -- < > = values in this interval not displayed. Recent Labs Lab 04/21/14 0349 04/20/14 0311 04/19/14 0252 INR 1.3 1.7 1.4 IMAGING ECHO 04/20/13 Impression 1. Overall left ventricular systolic function is normal with, an EF between 60 - 65 %. 2. The right ventricle is normal in size and function. 3. No signficant valvular abnormalit ies are noted. 3. A small to moderate-sized left pleural effusion is present. PROBLEM LIST Principal Problem: Acute respiratory failure Active Problems: Crohn's disease Microcytic anemia Aspiration pneumonia COPD (chronic obstructive pulmonary disease) Embolism and thrombosis of splenic artery Acute gastroenteritis Acute systolic heart failure LVEF 30% Narcotic dependence PAF (paroxysmal atrial fibrillation) ASSESSMENT & Plan NEURO: Metabolic Encephalopathy: Improved pt was following commands to other staff members d/w night nurse for lightening sedation and pain medications- toward sedation holiday and vent w ramez. Social Family conference revealed that patients quality of life has significant medical issues but that per her pt had enjoyment and from discussion with daughters and husb and they felt that pt would want to continue with treatment. Expressed concern was that pt d id not have the follow up and care she needed from medical environment in the past to approp riately treat her. Trying to get outside records to figure out if pt was lost to follow up a nd or did she have work up and monitoring of her gi issues with gi chron's doctor. CV: Splenic artery thrombosis. Patient is currently on a heparin infusion as bridge therapy once we are sure that no interventions will be done will start with Coumadin and stop the he juventino once the INR is greater than 2.0. PAF: Paroxysmal Atrial Fib treated with amiodarone now staying in SR. No rate controllin g agents at this time. Consider BB once BP stable. Idiopathic Cardiomyopathy: LVEF 30% by ECHO ([place]). ECHO here at [facility] 04/20/14 Impression 1. Overall left ventricular systolic function is normal with, an EF between 60 - 65 %. 2. The right ventricle is normal in size and function. 3. No signficant valvular abnormalit ies are noted. 3. A small to moderate-sized left pleural effusion is present. PULM: Pulmonary Edema: dieresis pt Aspiration Pneumonia: Upper lobe infiltrates with air brachiograms but no predominate o rganism growing in sputum cultures, PCP negative. Covered with zosyn GI/NUTRITION: Crohn's disease. On hydrocortisone IV for chronic steroid dependence (50mg Q8hrs). On Re micaide every 6 weeks. After Petty has been consult it to scope the patient prior to extubati ng suite get an idea of any underlying etiology Nutrition: was tolerating it at goal-toleratin. Held for procedure with hold for wean po ssible extubation in am. Pending official report-EGD 04/20/14 IMPRESSION 1. Benign peptic esophageal stricture at the upper esophagus sphincter level and at EG junc tion level. 2. Erosive reflux esophagitis. 3. Mild gastritis. 4. Normal duodenum. RECOMMENDATIONS IV Protonix and once the patient is extubated and ready to eat, she should be on p.o. myles n-pump inhibitor for extended time. In the meantime, any aspirin or NSAIDs need to be avoide d, at least for the next 3 days. RENAL/LYTES: Renal function and electrolytes within normal. Continue to monitor UO and renal function closely. Avoid nephrotoxins. Sodium increasing free water via gastric tube. ID: Aspiration PNA. On Zosyn and Vancomycin IV. Blood (cx's negative) and tracheal CS pendin g. PCP smear shows no pneumocystis.Pt last pancultured on 04/19/14. c diff negative 04/19/14 Patient has a history of esophagitis and Diflucan was ordered overnight. Immune compromised: On Remecade as out pt HEME: Chronic microcytic anemia. Likely from anemia of chronic disease. Concern for low flow to her baseline poor gi function with old anastomotic line. Insure perfusion -one unit prbc. Spleenic artery thrombosis: Started on Heparin infusion for bridge therapy. Will wait o n Warfarin until known plan for interventional procedures such as EGD. ENDO: DM: fingersticks and insuline MUSC/SKIN: No acute lesions. Chronic changes on arms. Early mobilization and PT once able. Chronic pain issues. Fentanyl infusion. PROPHYLAXIS: Stress ulcer prophylaxis: H2 jarrod- protonix ordered DVT prophylaxis: Heparin infusion, SCD VAP bundle:chlorhexadine oral care, HOB >30 degrees. Spoke with family and daughters and updated then on scope with dilation and naswere d questions . Gave copies of pt records for out side hospital and egd. Disposition: ICU care as above. Code Status: Full Code *Please bill 60 minutes of critical care time spent evaluating the patient, reviewing the d hawa and formulating a plan exclusive of all other procedures. Trice Fagan MD 04/21/2014 10:08 AM onversio n Transaction, Provider Unknown - 04/20/2014 5:00 PM PSTFormatting of this note might be di fferent from the original. Progress Notes by Taylor Trevino RN at 04/20/141699 Author: Taylor Trevino RN Service: (none) Author Type: Registered Nurse Filed: 04/20/14 1765 Date of Service: 04/20/141699 Status: Signed Systems Development Manager: Taylor Trevino RN (Registered Nurse) Labs drawn from [facility] per protocol. Flushed with 20ML NS, jhony back and wasted 8ML blo od and then jhony sample. Labs sent to lab per orders. TAYLOR TREVINO 04/20/2014 onver roshan Transaction, Provider Unknown - 04/20/2014 2:54 PM PST Progress Notes by Pia Garcia RD, CD at 04/20/14 8734 Author: Pia Garcia RD, CD Service: (none) Author Type: Registered Dietitian Filed: 04/20/14 7998 Date of Service: 04/20/14 450 Status: Signed Systems Development Manager: Pia Garcia RD, CD (Registered Dietitian) Nutrition Follow-Up Assessment: Remains intubated and sedated. Tolerating TF well. Propofol is running at 23.5 mL/hr which provides approximately 620 kcal/day. Nutritionally pertinent labs: Na 144 (H). K+ 3.1 (L), on Lasix. Electrolyte replacement pro tocol ordered. BG has been variable in the 100s, Novolog insulin ordered. Nutrition-focused physical findings: Skin is intact. Stooling via rectal tube. Gastric resi duals have been minimal per RN. Diet order/current intake: NPO. On IV fluids of NS at 30 mL/hr. Receiving TF of Peptamen Ba riatric at goal rate of 70 mL/hr. Assuming 20-hour/day continuous delivery, this provides 14 00 kcal, 122 g protein, 1400 mL total volume, and 1170 mL free water. Overall, TF plus propo fol provide 2020 kcal and 122 g protein which supplies 26 kcal/kg and 1.5 g protein/kg. Nutrition Diagnosis: Inadequate oral intake related to inability to eat with mechanical ventilation as evidenced by NPO order. Goal: Pt will tolerate TF at goal rate. EN will be adequate to meet pt's estimated nutritional re quirements. Intervention/Recommendations: 1) Continue TF as ordered. Monitoring: Will follow up in 4 days or as indicated. Pia Garcia RD, CD, CNSC 04/20/2014 Carla Franz ARNP - 04/20/2014 2:03 PM PSTFormatting of this note might be different f rom the original. Progress Notes by JENARO Perez at 04/20/14 9011 Author: JENARO Perez Service: Flavor Maker Author Type: Flavor Maker Filed: 04/20/14 6202 Date of Service: 04/20/14 8504 Status: Signed Systems Development Manager: JENARO Perez (Nurse Practitioner) [facility] Service: Flavor Maker Progress Note Mackenzie Hartley 58 y.o. Hospital Day: LOS: 8 days Post-Op Day: * No surgery found * Consulting Physicians Treatment Team: Consulting Physician: Eric Chavez MD Consulting Physician: Bony Petty MD Admitting Provider: Bonnie Greenberg MD SUBJECTIVE Patient Summary: Per Dr Greenberg: The patient is a 58 y.o. 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 She underwent imaging of her abdomen which did not reveal any acute proces s. She was empirically started on broad spectrum antibiotics given her immunosuppressed stat e. She developed a bilateral lower lobe infiltrate, R>L, which was presumed to be due to asp iration, and in the next days, worsened (was initially on BiPAP) but was intubated on 04/12/13 . She was formerly a DNR but she revised her code status. ICU Timeline: 04/12/14: Intubated, admitted to the ICU 04/13/14: Extubated 04/15/14: BIPAP, Atrial Fib treated with Amiodarone 04/16/14: Intubated 04/17/14: CXR shows developing bilateral upper lobe infiltrates. Care conference with baljinder y 04/16 to discuss prognosis given re intubation 04/19/14: Care conference with Flavor Maker/AIMS. Continue with full treatment. Heparin infusi on was started due to the splenic artery thrombosis. 04/20/14: Dr. Petty was consult from GI to scope the patient prior to extubation. Events Overnight: No significant events. Afebrile PAST MEDICAL HISTORY Past Medical History Diagnosis Date COPD (chronic obstructive pulmonary disease) Crohn's disease Immunocompromised due to corticosteroids Recurrent aphthous ulcer E-coli UTI Hypokalemia Microcytic anemia Neuropathy Hypertension Embolism and thrombosis of splenic artery Other chronic pain GERD (gastroesophageal reflux disease) Osteoporosis Depression Chronic diarrhea Gastroesophageal reflux disease with hiatal hernia PAST SURGICAL HISTORY Past Surgical History Procedure Laterality Date Abdominal surgery Small intestine surgery Lysis of adhesions Cholecystectomy Appendectomy Hysterectomy Tonsillectomy Portacath placement Left ALLERGIES Allergies Allergen Reactions Demerol [Meperidine] Other (See Comments) Unknown Erythromycin Other (See Comments) unknown Levofloxacin Other (See Comments) tendinitis Reglan [Metoclopramide] Agitation Unknown Penicillins Nausea and Vomiting MEDICATIONS PRIOR TO ADMISSION Prescriptions prior to admission Medication Sig Dispense Refill omeprazole (PRILOSEC) 40 MG capsule Take 40 mg by mouth 2 (two) times daily. SCHEDULED MEDICATIONS albuterol 6 puff Inhalation Q4H famotidine 20 mg Oral BID Or famotidine 20 mg Intravenous BID fluconazole (DIFLUCAN) IV 200 mg Intravenous Q24H furosemide 20 mg Intravenous Q12H hydrocortisone sodium succinate PF 50 mg Intravenous Q12H insulin aspart 0-10 Units Subcutaneous Q6H ipratropium 6 puff Inhalation Q4H piperacillin-tazobactam 3.375 g Intravenous Q8H QUEtiapine 25 mg Oral BID sodium chloride 0.9 % 10 mL Intravenous Q12H GISSELL vancomycin 1,500 mg Intravenous Q24H CONTINUOUS INFUSIONS dextrose fentaNYL in NS 5 mcg/mL 100 mcg/hr (04/20/14 0926) heparin 50 units/mL in Dextrose 5% 15 Units/kg/hr (04/20/14 1130) norepinephrine in D5W 64 mcg/mL propofol 50 mcg/kg/min (04/20/14 1343) sodium chloride (IV) 30 mL/hr at 04/15/14 1839 OBJECTIVE VITAL SIGNS Temp: [98.2 F (36.8 C)-99.3 F (37.4 C)] 99.2 F (37.3 C) Heart Rate: [74-120] 115 Resp: [14-20] 18 BP: (97-159)/(54-78) 107/58 mmHg FiO2 : [35 %-41 %] 41 % Intake/Output Summary (Last 24 hours) at 04/20/14 1403 Last data filed at 04/20/14 1200 Gross per 24 hour Intake 3694.5 ml Output 2980 ml Net 714.5 ml EXAM GEN: Sedated modified [place] scale of 3 patient is able to follow some commands although w eakly, intubated, NAD NEURO: PERRLA, unable to assess EOMs, sedated. HEENT: sclerae clear, nonicteric, oral mmm, pink, no exudates NECK: supple, trachea midline, intubated, OG in place HEART: RRR, S1/S2, no murmur, rub or gallop LUNGS/CHEST: clear b/l, no wheezing, crackles or rhonchi, symmetric chest expansion, even/u nlabored respirations, ROLANDO CATH LEFT UPPER CHEST ABD: soft, nondistended, nontender to palpation, no masses, no hepatosplenomegaly EXTR: Diffuse generalized edema, clubbing or cyanosis, PICC line left upper extremity. SKIN: warm, dry, no rash or mottling; no e/o skin breakdown over the occiput, scapulae, elb ows, sacrum or heels DATA Recent Labs Lab 04/20/14 0430 04/19/1425104/18/14429 WBC 21.3* 18.2* 22.9* HGB 8.9* 9.7* 8.8* HCT 29.8* 30.8* 29.5* PLT 373 388 397 Recent Labs Lab 04/20/14 1145 04/20/14 03104/19/14 2106 04/19/14251 NA -- 144* 150* -- 140 K 3.4* 3.1* 4.1 < > 3.1* CL -- 108 113* -- 105 CO2 -- 31 29 -- 29 BUN -- 25 25 -- 17 CREATININE -- 0.58 0.72 -- 0.41* PROT -- 4.8* -- -- -- BILITOT -- 0.5 -- -- -- ALT -- 15 -- -- -- AST -- 31 -- -- -- < > = values in this interval not displayed. Recent Labs Lab 04/20/1431004/19/1425104/18/14429 INR 1.7 1.4 1.4 IMAGING X-ray Abdomen Ap 04/16/2014 1. Nasogastric tube tip in the stomach. Ct Head Without Contrast 04/19/2014 1. No acute intracranial findings. LEM LIST Principal Problem: Acute respiratory failure Active Problems: Crohn's disease Microcytic anemia Aspiration pneumonia COPD (chronic obstructive pulmonary disease) Embolism and thrombosis of splenic artery Acute gastroenteritis Acute systolic heart failure LVEF 30% Narcotic dependence PAF (paroxysmal atrial fibrillation) ASSESSMENT & PLAN NEURO: Metabolic Encephalopathy: Multifactorial and improving. End of Life issues: Was a DNR while in [place] but consented to be intubated prior to tr cristina. Palliative care consult and family conference revealed that patients quality of life is poor but that per her is satisfactory to the patient. CV: Splenic artery thrombosis. Patient is currently on a heparin infusion as bridge therapy onc e we are sure that no interventions will be done will start with Coumadin and stop the hepar in once the INR is greater than 2.0. PAF: Paroxysmal Atrial Fib treated with amiodarone now staying in SR. No rate controlling agents at this time. Consider BB once BP stable. Idiopathic Cardiomyopathy: LVEF 30% by ECHO ([place]). PULM: Pulmonary Edema: Related to cardiomyopathy and decreased ejection fraction. This appears t o be resolved radiologically and no crackles appreciated on examination. Aspiration Pneumonia: Upper lobe infiltrates with air brachiograms but no predominate orga nism growing in sputum cultures, PCP negative. Covered with zosyn GI/NUTRITION: Crohn's disease. On hydrocortisone IV for chronic steroid dependence (50mg Q8hrs). On Remic aide every 6 weeks. After Petty has been consult it to scope the patient prior to extubating suite get an idea of any underlying etiology Nutrition: TF at goal-tolerating. RENAL/LYTES: Renal function and electrolytes within normal. Continue to monitor UO and renal function cl osely. Avoid nephrotoxins. ID: Aspiration PNA. On Zosyn and Vancomycin IV. Blood (cx's negative) and tracheal CS pending. PCP smear shows no pneumocystis. Patient has a history of esophagitis and Diflucan was ordered overnight. Immune compromised: On Remecade but also now with spleenic artery thrombosis. HEME: Chronic microcytic anemia. Will continue to monitor H/H daily and watch out for acute signs of bleeding. Likely from anemia of chronic disease. Spleenic artery thrombosis: Started on Heparin infusion for bridge therapy. Will wait on W arfarin until known plan for interventional procedures such as EGD. ENDO: DM: SSI for now. Endotool if with BS>180 x2. MUSC/SKIN: No acute lesions. Chronic changes on arms. Early mobilization and PT once able. Chronic pain issues. Fentanyl infusion. PROPHYLAXIS: Stress ulcer prophylaxis: H2 jarrod DVT prophylaxis: Heparin infusion, SCD VAP bundle:chlorhexadine oral care, HOB >30 degrees. Disposition: ICU care as above. Code Status: Full Code *Please bill 45 minutes of critical care time spent evaluating the patient, reviewing the d hawa and formulating a plan exclusive of all other procedures. JENARO PEREZ 04/20/2014 2:03 PM onversion Transaction, Provider Unknown - 04/20/2014 9:00 AM PSTFormatting of this note might be diff erent from the original. Progress Notes by Leah Chris RPH at 04/20/14899 Author: Leah Chris RPH Service: (none) Author Type: Pharmacist Filed: 04/20/14899 Date of Service: 04/20/14899 Status: Signed Systems Development Manager: Leah Chris RPH (Pharmacist) Day 9 Vanco Tx Todays Scr= 0.58, WBC= 21.3 with estim CrCl= 110.5 ml/min Pharmacist: LEAH CHRIS 04/20/2014 8:59 AM onver roshan Transaction, Provider Unknown - 04/19/2014 7:53 PM PST Progress Notes by Mila Pinedo at 04/19/141952 Author: Mila Pniedo Service: (none) Author Type: Power Checker Filed: 04/19/142001 Date of Service: 04/19/141952 Status: Signed Systems Development Manager: Mila Pinedo (Power Checker) AIM care conference with Dr Chavez and Maryjane AIM/CM expanded to include ICU Flavor Maker and pts current RN. Present also were Mackenzie's , Kole, and two of the four children, iSlva and Otilia. Flavor Maker gave a thorough explanation of the progression of the illness and th e course it has taken during this hospitalization. It became clear the family is very upset with previous hospitalizations and doctor encounters as they believe there has been inadequa te diagnosis and care. Kole stated several times that the mouth and throat pain made it so that Mackenzie could not eat which in turn caused her not to be able to take her medicine witho ut it causing nausea. The family wants to continue aggressive treatment at this time as Marlo rich 'is a fighter'. 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 Flavor Maker asked for another care conference on Friday 04/21 to update the family on Mackenzie' s progress. ostLyly smith MSW - 04/19/2014 4:14 PM PST Progress Notes by LEVI Cervantes at 04/19/14 1614 Author: LEVI Cervantes Service: (none) Author Type: Radiographic Technologist Filed: 04/19/14 0501 Date of Service: 04/19/14 1614 Status: Signed Systems Development Manager: LEVI Cervantes (Radiographic Technologist) SOPHIE SAEED, SOPHIE SIMS, Power Checker, pt's RN Kassandra Garrett and ICU Flavor Maker met with family to ex plore goals of care. ICU Flavor Maker thoroughly explained pt's course of care during this h ospitalization and provided family an opportunity to ask questions and to describe Mackenzie's m edical hx prior to this admission. Pt has had hx of Crohn's disease since she was 17 or 18. Pt has current dx of pneumonia, she's intubated and unable to participate in her plan of c are at this time. Pt's spouse Kole and dtrs Laim live in [place], [place]. Family e xpressed strong concerns that pt's Crohn's disease had not been managed adequately for years , that pt's quality of life was very poor due to severe chronic pain, she had sores in her m outh and down her throat that prevented her from eating even though she had a good appetite, she was malnourished, "weak as a kitten" per spouse for the past several months and had see n an cut roll machine offbearer for the mouth and throat sores to no avail. Pt's spouse Kole and pt's dtr express tremendous frustration over what they perceive has been poor med ical management of pt's illnesses prior to this admission. ICU Flavor Maker recommended a wo rk up of pt's multiple medical co-morbidities and continued aggressive medical treatment at this time. Pt's dtrs and spouse in agreement with this plan. onversion Transact ion, Provider Unknown - 04/19/2014 1:28 PM PSTFormatting of this note might be different fr om the original. Progress Notes by Paula Barnes RPH at 04/19/14 1328 Author: Paula Barnes RPH Service: (none) Author Type: Pharmacist Filed: 04/19/14 1328 Date of Service: 04/19/148 Status: Signed Systems Development Manager: Paula Barnes RPH (Pharmacist) Clinical Pharmacy Note: Vancomycin Day 8 Trough today at 1300 was drawn early at 1211 and resulted at 14.8 Desired range is 15-20 f or HAP Will increase dose to 1500mg q24 hours starting now at 1330 Patient also shows improvement in renal function Scr 0.41 mg/dL CrCl 156.3 ml/min Continue to monitor. Will order Random prior to 3rd 1500mg dose Paula Barnes RP onver roshan Transaction, Provider Unknown - 04/19/2014 11:52 AM PST Nurse Progress Note by Rhianna Blackwood RN at 04/19/14 1152 Author: Rhianna Blackwood RN Service: (none) Author Type: Registered Nurse Filed: 04/19/14 1157 Date of Service: 04/19/14 1152 Status: Signed Systems Development Manager: Rhianna Blackwood RN (Registered Nurse) Wound care came to see this patient today because of Marck scores that put the patient at moderate risk of skin breakdown. Patient's Marck score today is 13. Patient's skin assessm ent found blanchable redness in the reji area. Continue to use barrier cream, float the olamide ls and use pillow support for the arms with concern for pressure points at the elbows. Anastasia nue to monitor for pressure areas caused by medical devises and turn patient every two hours . Rhianna Blackwood RN Carla Franz ARNP - 04/19/2014 11:35 AM PSTFormatting of this note might be different f rom the original. Progress Notes by JENARO Perez at 04/19/14 3287 Author: JENARO Perez Service: Flavor Maker Author Type: Flavor Maker Filed: 04/20/14 0749 Date of Service: 04/19/141134 Status: Signed Systems Development Manager: JENARO Perez (Nurse Practitioner) [facility] Service: Flavor Maker Progress Note Mackenzie Hartley 58 y.o. Hospital Day: LOS: 7 days Post-Op Day: * No surgery found * Consulting Physicians Treatment Team: Consulting Physician: Eric Chavez MD Admitting Provider: Bonnie Greenberg MD SUBJECTIVE Patient Summary: Per Dr Greenberg: The patient is a 58 y.o. 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 She underwent imaging of her abdomen which did not reveal any acute proces s. She was empirically started on broad spectrum antibiotics given her immunosuppressed stat e. She developed a bilateral lower lobe infiltrate, R>L, which was presumed to be due to asp iration, and in the next days, worsened (was initially on BiPAP) but was intubated on 04/12/13 . She was formerly a DNR but she revised her code status. ICU Timeline: 04/12/14: Intubated, admitted to the ICU 04/13/14: Extubated 04/15/14: BIPAP, Atrial Fib treated with Amiodarone 04/16/14: Intubated 04/17/14: CXR shows developing bilateral upper lobe infiltrates. Care conference with famil y 04/16 to discuss prognosis given re intubation 04/19/14: Care conference with Flavor Maker/AIMS. Continue with full treatment. Events Overnight: No significant events. Afebrile PAST MEDICAL HISTORY Past Medical History Diagnosis Date COPD (chronic obstructive pulmonary disease) Crohn's disease Immunocompromised due to corticosteroids Recurrent aphthous ulcer E-coli UTI Hypokalemia Microcytic anemia Neuropathy Hypertension Embolism and thrombosis of splenic artery Other chronic pain GERD (gastroesophageal reflux disease) Osteoporosis Depression Chronic diarrhea Gastroesophageal reflux disease with hiatal hernia PAST SURGICAL HISTORY Past Surgical History Procedure Laterality Date Abdominal surgery Small intestine surgery Lysis of adhesions Cholecystectomy Appendectomy Hysterectomy Tonsillectomy Portacath placement Left ALLERGIES Allergies Allergen Reactions Demerol [Meperidine] Other (See Comments) Unknown Erythromycin Other (See Comments) unknown Levofloxacin Other (See Comments) tendinitis Reglan [Metoclopramide] Agitation Unknown Penicillins Nausea and Vomiting MEDICATIONS PRIOR TO ADMISSION Prescriptions prior to admission Medication Sig Dispense Refill omeprazole (PRILOSEC) 40 MG capsule Take 40 mg by mouth 2 (two) times daily. SCHEDULED MEDICATIONS albuterol 6 puff Inhalation Q4H chlorhexidine gluconate 15 mL Mouth/Throat Q12H enoxaparin 30 mg Subcutaneous Q12H famotidine 20 mg Oral BID Or famotidine 20 mg Intravenous BID hydrocortisone sodium succinate PF 50 mg Intravenous Q8H insulin aspart 0-10 Units Subcutaneous Q6H ipratropium 6 puff Inhalation Q4H micafungin (MYCAMINE) IVPB 100 mg Intravenous Daily piperacillin-tazobactam 3.375 g Intravenous Q8H QUEtiapine 25 mg Oral BID sodium chloride 0.9 % 10 mL Intravenous Q12H GISSELL vancomycin 17 mg/kg Intravenous Q24H warfarin 4 mg Oral Daily CONTINUOUS INFUSIONS dextrose fentaNYL in NS 5 mcg/mL 85 mcg/hr (04/19/14 0139) norepinephrine in D5W 64 mcg/mL propofol 50 mcg/kg/min (04/19/14 0928) sodium chloride (IV) 30 mL/hr at 04/15/14 1839 OBJECTIVE VITAL SIGNS Temp: [97.5 F (36.4 C)-98.4 F (36.9 C)] 98.1 F (36.7 C) Heart Rate: [68-118] 108 Resp: [15-18] 16 BP: (94-138)/(50-68) 100/51 mmHg FiO2 : [35 %-36 %] 35 % Intake/Output Summary (Last 24 hours) at 04/19/14 1135 Last data filed at 04/19/14 1000 Gross per 24 hour Intake 3716 ml Output 2786 ml Net 930 ml EXAM GEN: Sedated, intubated, NAD NEURO: PERRLA, unable to assess EOMs, sedated. Daily sedation holiday HEENT: sclerae clear, nonicteric, oral mmm, pink, no exudates NECK: supple, trachea midline, intubated, OG in place HEART: RRR, S1/S2, no murmur, rub or gallop LUNGS/CHEST: clear b/l, no wheezing, crackles or rhonchi, symmetric chest expansion, even/u nlabored respirations, ROLANDO CATH LEFT UPPER CHEST ABD: soft, nondistended, nontender to palpation, no masses, no hepatosplenomegaly EXTR: no edema, clubbing or cyanosis, PICC line left upper extremity. SKIN: warm, dry, no rash or mottling; no e/o skin breakdown over the occiput, scapulae, elb ows, sacrum or heels DATA Recent Labs Lab 04/19/1425104/18/1442904/17/14318 WBC 18.2* 22.9* 19.2* HGB 9.7* 8.8* 9.2* HCT 30.8* 29.5* 30.7* PLT 388 397 385 Recent Labs Lab 04/19/14 0842 04/19/14 0252 04/18/14 1314 04/18/14 0430 04/17/14 0319 04/12/14 1731 NA -- 140 -- 147* -- 151* < > 139 K 3.0* 3.1* 3.9 3.2* < > 3.1* < > 4.1 CL -- 105 -- 113* -- 114* < > 105 CO2 -- 29 -- 30 -- 31 < > 24 BUN -- 17 -- 22 -- 20 < > 15 CREATININE -- 0.41* -- 0.68 -- 0.96 < > 0.96 PROT -- -- -- -- -- -- -- 5.2* BILITOT -- -- -- -- -- -- -- 0.3 ALT -- -- -- -- -- -- -- 18 AST -- -- -- -- -- -- -- 55* < > = values in this interval not displayed. Recent Labs Lab 04/19/1425108/15 0430 04/17/14 0319 INR 1.4 1.4 1.6 IMAGING X-ray Abdomen Ap 04/16/2014 1. Nasogastric tube tip in the stomach. Ct Head Without Contrast 04/19/2014 1. No acute intracranial findings. LEM LIST Principal Problem: Acute respiratory failure Active Problems: Crohn's disease Microcytic anemia Aspiration pneumonia COPD (chronic obstructive pulmonary disease) Embolism and thrombosis of splenic artery Acute gastroenteritis Acute systolic heart failure LVEF 30% Narcotic dependence PAF (paroxysmal atrial fibrillation) ASSESSMENT & PLAN NEURO: Metabolic Encephalopathy: Multifactorial End of Life issues: Was a DNR while in [place] but consented to be intubated prior to tr cristina. Palliative care consult and family conference revealed that patients quality of life is poor but that per her is satisfactory to the patient. CV: Splenic artery thrombosis. Using prophylactic dose Lovenox & warfarin PAF: Paroxysmal Atrial Fib treated with amiodarone now staying in SR. No rate controlling agents at this time. Consider BB once BP stable. Idiopathic Cardiomyopathy: LVEF 30% by ECHO ([place]). PULM: Pulmonary Edema: Related to cardiomyopathy and decreased ejection fraction, Will diurese a gain today. Aspiration Pneumonia: Upper lobe infiltrates with air brachiograms but no predominate orga nism growing in sputum cultures, PCP negative. Covered with zosyn GI/NUTRITION: Crohn's disease. On hydrocortisone IV for chronic steroid dependence (50mg Q8hrs). On Remic aide every 6 weeks. Nutrition: TF at goal-tolerating. RENAL/LYTES: Renal function and electrolytes within normal. Continue to monitor UO and renal function cl osely. Avoid nephrotoxins. ID: Aspiration PNA. On Zosyn and Vancomycin IV. Blood (cx's negative) and tracheal CS pending. PCP smear shows no pneumocystis. Immune compromised: On Remecade but also now with spleenic artery thrombosis. Added micaf ungin given chronic immunosuppression. HEME: Chronic microcytic anemia. Will continue to monitor H/H daily and watch out for acute signs of bleeding. Likely from anemia of chronic disease. Hgb 8.8, PLT 397K Spleenic artery thrombosis: Started on Heparin infusion for bridge therapy. Will wait on W arfarin until known plan for tracheostomy or not. ENDO: DM: SSI for now. Endotool if with BS>180 x2. MUSC/SKIN: No acute lesions. Chronic changes on arms. Early mobilization and PT once able. Chronic pain issues. Fentanyl infusion. PROPHYLAXIS: Stress ulcer prophylaxis: H2 jarrod DVT prophylaxis: Heparin infusion, SCD VAP bundle:chlorhexadine oral care, HOB >30 degrees. Disposition: ICU care as above. Code Status: Full Code *Please bill 45 minutes of critical care time spent evaluating the patient, reviewing the d hawa and formulating a plan exclusive of all other procedures. JENARO PEREZ 04/19/2014 11:35 AM onversion Transaction, Provider Unknown - 04/19/2014 11:34 AM PSTFormatting of this note might be diff erent from the original. Case Management by LEVI Acharya at 04/19/14 1134 Author: LEVI Acharya Service: (none) Author Type: Radiographic Technologist Filed: 04/19/14 1134 Date of Service: 04/19/14 113 Status: Signed Systems Development Manager: LEVI Acharya (Radiographic Technologist) Care conference arranged for today at 2pm with Dr. Chavez. Await decision of family regardin g continued aggressive care vs. Comfort care. ongenaro islas Transaction, Provider Unknown - 04/19/2014 9:10 AM PST Therapy Progress Note by Rich Jmiénez PT at 04/19/14 0910 Author: Rich Jiménez PT Service: (none) Author Type: Physical Therapist Filed: 04/19/14 1153 Date of Service: 04/19/14 0910 Status: Signed Systems Development Manager: Rich Jiménez PT (Physical Therapist) 04/19/14 0910 PT Last Visit PT Received On 04/19/14 Requires PT Follow Up On hold Lyly Hein, TECHNICAL SYSTEM ANALYST - 04/18/2014 5:22 PM PST Progress Notes by LEVI Cervantes at 04/18/14 1722 Author: LEVI Cervantes Service: (none) Author Type: Radiographic Technologist Filed: 04/18/14 1724 Date of Service: 04/18/14 172 Status: Signed Systems Development Manager: LEVI Cervantes (Radiographic Technologist) SOPHIE CARVALHOW was summoned to pt's room by pt's RN. Two adult dtr's were bedside. TECHNICAL SYSTEM ANALYST asked it they would be able to meet with AIM service MD, mercury purifier/AUTO SLIP COVER INSTALLER, ICU TECHNICAL SYSTEM ANALYST and retail interior designer vero hoover to discuss goals of care. Dtr's report they are more than willing to meet, they have no problem taking time off of work and are agreeable to 2:00pm 04/19/2013. Dtr's also agreeable to discuss this with their father and to bring him to the CC. onversion Transact ion, Provider Unknown - 04/18/2014 2:19 PM PSTFormatting of this note might be different fr om the original. Therapy Progress Note by Rich Jiménez PT at 04/18/14 1419 Author: Rich Jiménez PT Service: (none) Author Type: Physical Therapist Filed: 04/19/14 1152 Date of Service: 04/18/14 1419 Status: Signed Systems Development Manager: Rich Jiménez PT (Physical Therapist) 04/18/14 1419 PT Last Visit PT Received On 04/18/14 Requires PT Follow Up On hold onver roshan Transaction, Provider Unknown - 04/18/2014 12:07 PM PST Case Management by LEVI Acharya at 04/18/14 1207 Author: LEVI Acharya Service: (none) Author Type: Radiographic Technologist Filed: 04/18/14 1210 Date of Service: 04/18/14 1207 Status: Signed Systems Development Manager: LEVI Acharya (Radiographic Technologist) CM called pt's spouse Kole. Spoke with him and informed that both Dr. Chavez and Jose Raul gandhi want to meet with him to discuss goals of care. was very stressed and concerned that discussions would take place without pt's daughters being there. I informed him that t he conferences could happen tomorrow but that they would have to be by 4pm as Dr. Chavez leave s at 5pm. called his daughters and has arranged for one of them to accompany him to [place] and is waiting to hear from the other daughter whether she will be able to also be pr esent. said he would call me back to arrange a time for conferences. Shared this in fo with LEVI Cervantes for AIM program. oster , LEVI Desouza - 04/18/2014 10:31 AM PST Progress Notes by LEVI Cervantes at 04/18/14 1031 Author: LEVI Cervantes Service: (none) Author Type: Radiographic Technologist Filed: 04/18/14 1033 Date of Service: 04/18/14 1031 Status: Signed Systems Development Manager: LEVI Cervantes (Radiographic Technologist) SOPHIE TECHNICAL SYSTEM ANALYST called pt's spouse Kole using phone contact number on Chloe Best LUKASZ HUANG progress not e. No answer, automated vm listing number only. No hippa info left on vm. Will continue t o attempt to contact pt's spouse to set up a care conference with him and Mackenzie's adult tucker durham to discuss goals of care. onversion Transact ion, Provider Unknown - 04/18/2014 9:31 AM PSTFormatting of this note might be different fr om the original. Progress Notes by Paula Barnes RPH at 04/18/14930 Author: Paula Barnes RPH Service: (none) Author Type: Pharmacist Filed: 04/18/14930 Date of Service: 04/18/14930 Status: Signed Systems Development Manager: Paula Barnes RPH (Pharmacist) Clinical Pharmacy Note: Vancomycin Day 7 No trough ordered today Dose @ 1400 Vancomycin 1250mg Daily IVPB Improvement in Scr. If this is sustained, will check level tomorrow to see we are not unde rdosing. Paula Barnes RP 04-18-2014 Mai Madrigal ARNP - 04/18/2014 6:42 AM PST Progress Notes by JENARO Mcdermott at 04/18/14641 Author: JENARO Mcdermott Service: Flavor Maker Author Type: Nurse Practitioner Filed: 04/18/14 1137 Date of Service: 04/18/14641 Status: Signed Systems Development Manager: JENARO Mcdermott (Nurse Practitioner) [facility] Service: Flavor Maker Progress Note Mackenzie Hartley 58 y.o. Hospital Day: LOS: 6 days Post-Op Day: * No surgery found * Consulting Physicians Treatment Team: Consulting Physician: Eric Chavez MD Admitting Provider: Bonnie Greenberg MD SUBJECTIVE Patient Summary: Per Dr Greenberg: The patient is a 58 y.o. 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 She underwent imaging of her abdomen which did not reveal any acute proces s. She was empirically started on broad spectrum antibiotics given her immunosuppressed stat e. She developed a bilateral lower lobe infiltrate, R>L, which was presumed to be due to asp iration, and in the next days, worsened (was initially on BiPAP) but was intubated on 04/12/13 . She was formerly a DNR but she revised her code status. ICU Timeline: 04/12/14: Intubated, admitted to the ICU 04/13/14: Extubated 04/15/14: BIPAP, Atrial Fib treated with Amiodarone 04/16/14: Intubated 04/17/14: CXR shows developing bilateral upper lobe infiltrates. Care conference with famil y 04/16 to discuss prognosis given re intubation Events Overnight: Remains intubated. AIMS SS attempting to contact family to set up care conference. ABx coverage broadened. PAST MEDICAL HISTORY Past Medical History Diagnosis Date COPD (chronic obstructive pulmonary disease) Crohn's disease Immunocompromised due to corticosteroids Recurrent aphthous ulcer E-coli UTI Hypokalemia Microcytic anemia Neuropathy Hypertension Embolism and thrombosis of splenic artery Other chronic pain GERD (gastroesophageal reflux disease) Osteoporosis Depression Chronic diarrhea Gastroesophageal reflux disease with hiatal hernia PAST SURGICAL HISTORY Past Surgical History Procedure Laterality Date Abdominal surgery Small intestine surgery Lysis of adhesions Cholecystectomy Appendectomy Hysterectomy Tonsillectomy Portacath placement Left ALLERGIES Allergies Allergen Reactions Demerol [Meperidine] Other (See Comments) Unknown Erythromycin Other (See Comments) unknown Levofloxacin Other (See Comments) tendinitis Reglan [Metoclopramide] Agitation Unknown Penicillins Nausea and Vomiting MEDICATIONS PRIOR TO ADMISSION Prescriptions prior to admission Medication Sig Dispense Refill omeprazole (PRILOSEC) 40 MG capsule Take 40 mg by mouth 2 (two) times daily. SCHEDULED MEDICATIONS albuterol 6 puff Inhalation Q4H chlorhexidine gluconate 15 mL Mouth/Throat Q12H docusate sodium 100 mg Oral BID Or docusate 100 mg Per OG Tube BID enoxaparin 30 mg Subcutaneous Q12H famotidine 20 mg Oral BID Or famotidine 20 mg Intravenous BID hydrocortisone sodium succinate PF 50 mg Intravenous Q8H insulin aspart 0-10 Units Subcutaneous Q6H ipratropium 6 puff Inhalation Q4H piperacillin-tazobactam 3.375 g Intravenous Q8H QUEtiapine 25 mg Oral BID sodium chloride 0.9 % 10 mL Intravenous Q12H GISSELL vancomycin 17 mg/kg Intravenous Q24H warfarin 3 mg Oral Daily CONTINUOUS INFUSIONS dextrose fentaNYL in NS 5 mcg/mL Stopped (04/18/14 0500) norepinephrine in D5W 64 mcg/mL propofol Stopped (04/18/14 0500) sodium chloride (IV) 30 mL/hr at 04/15/14 1839 OBJECTIVE VITAL SIGNS Temp: [97.7 F (36.5 C)-98.7 F (37.1 C)] 97.8 F (36.6 C) Heart Rate: [76-115] 88 Resp: [15-19] 15 BP: (86-124)/(51-63) 117/56 mmHg FiO2 : [35 %-41 %] 41 % Intake/Output Summary (Last 24 hours) at 04/18/14 0642 Last data filed at 04/18/14 0500 Gross per 24 hour Intake 4731 ml Output 1490 ml Net 3241 ml EXAM GEN: Sedated, intubated, NAD NEURO: PERRLA, unable to assess EOMs, sedated. Daily sedation holiday HEENT: sclerae clear, nonicteric, oral mmm, pink, no exudates NECK: supple, trachea midline, intubated, OG in place HEART: RRR, S1/S2, no murmur, rub or gallop LUNGS/CHEST: clear b/l, no wheezing, crackles or rhonchi, symmetric chest expansion, even/u nlabored respirations, ROLANDO CATH LEFT UPPER CHEST ABD: soft, nondistended, nontender to palpation, no masses, no hepatosplenomegaly EXTR: no edema, clubbing or cyanosis, PICC line SKIN: warm, dry, no rash or mottling; no e/o skin breakdown over the occiput, scapulae, elb ows, sacrum or heels DATA Recent Labs Lab 04/18/14 0430 04/17/1431804/16/14314 WBC 22.9* 19.2* 20.0* HGB 8.8* 9.2* 10.5* HCT 29.5* 30.7* 36.0 PLT 397 385 378 Recent Labs Lab 04/18/14 0430 04/17/14 2133 04/17/14 1330 04/17/14 0319 04/16/14 0315 04/12/14 1731 NA 147* -- -- 151* 146* < > 139 K 3.2* 3.5 3.3* 3.1* 4.4 < > 4.1 CL 113* -- -- 114* 106 < > 105 CO2 30 -- -- 31 32 < > 24 BUN 22 -- -- 20 20 < > 15 CREATININE 0.68 -- -- 0.96 0.86 < > 0.96 PROT -- -- -- -- -- -- 5.2* BILITOT -- -- -- -- -- -- 0.3 ALT -- -- -- -- -- -- 18 AST -- -- -- -- -- -- 55* < > = values in this interval not displayed. Recent Labs Lab 04/18/14 0430 04/17/14 0319 04/16/14 0315 INR 1.4 1.6 1.5 IMAGING X-ray Abdomen Ap 04/16/2014 1. Nasogastric tube tip in the stomach. X-ray Chest 1 View 04/17/2014 1. Improving severe diffuse lung disease. Stable tubes and lines. Electronical ly signed by Bennett Abreu MD on 04/17/2014 7:19 AM X-ray Chest 1 View 04/16/2014 1. Tubes and lines, as above. No evidence of pneumothorax. 2. Persistent sever e diffuse lung disease. A M X-ray Chest 1 View 04/15/2014 1. Improving severe diffuse lung disease. Unchanged central line. Electronical ly signed by Bennett Abreu MD on 04/15/2014 7:25 AM X-ray Chest 1 View 04/14/2014 1. Interval removal of the endotracheal tube and nasogastric tube. 2. Persiste nt bilateral diffuse interstitial and airspace opacities X-ray Chest 1 View 04/13/2014 1. Stable chest. X-ray Chest 1 View 04/12/2014 1. Appropriate positioning of support tubes and lines. 2. Multifocal airspace opacities throughout the lungs which may reflect pulmonary edema versus multifocal pneumonia . LEM LIST Principal Problem: Acute respiratory failure Active Problems: Crohn's disease Microcytic anemia Aspiration pneumonia COPD (chronic obstructive pulmonary disease) Embolism and thrombosis of splenic artery Acute gastroenteritis Acute systolic heart failure LVEF 30% Narcotic dependence PAF (paroxysmal atrial fibrillation) ASSESSMENT & PLAN NEURO: Metabolic Encephalopathy: Multifactorial End of Life issues: Was a DNR while in [place] but convinced to be intubated prior to tr cristina, will consult palliative care service and engage in conversation about this i ssue. Dr Chavez to see 04/18. Follow with family care conference. CV: Splenic artery thrombosis. Will use prophylactic dose Lovenox, & warfarin PAF: Paroxysmal Atrial Fib treated with amiodarone now staying in SR. No rate controlling agents at this time. Consider BB once BP stable. Idiopathic Cardiomyopathy: LVEF 30% by ECHO ([place]). Lasix 20mg today (04/18) PULM: Pulmonary Edema: Related to cardiomyopathy and decreased ejection fraction, Will diurese a gain today (20mg 04/18). Aspiration Pneumonia: Upper lobe infiltrates with air brachiograms but no predominate orga nism growing in sputum cultures, PCP negative. Covered with zosyn GI/NUTRITION: Crohn's disease. On hydrocortisone IV for chronic steroid dependence (50mg Q8hrs). On Remic aide every 6 weeks. Nutrition: TFs restarted (goal 70ml/hr) RENAL/LYTES: Renal function and electrolytes within normal. Continue to monitor UO and renal function cl osely. Avoid nephrotoxins. 04/18 Cr 0.68. ID: Aspiration PNA. On Zosyn and Vancomycin IV. Blood (cx's negative) and tracheal CS pending. PCP smear shows no pneumocystis. Immune compromised: On Remecade but also now with spleenic artery thrombosis. Added micaf ungin given chronic immunosuppression. HEME: Chronic microcytic anemia. Will continue to monitor H/H daily and watch out for acute signs of bleeding. Likely from anemia of chronic disease. Hgb 8.8, PLT 397K Spleenic artery thrombosis: Will start Warfarin (increased to 4mg daily 04/18). Bridged wit h lovenox until INR > 2.0 ENDO: DM: SSI for now. Endotool if with BS>180 x2. BGs. 133, 163, 200 MUSC/SKIN: No acute lesions. Chronic changes on arms. Early mobilization and PT once able. Chronic pain issues. Fentanyl infusion. PROPHYLAXIS: Stress ulcer prophylaxis: H2 jarrod DVT prophylaxis: sub-therapeutic INR (04/18 1.4)--coumadin/lovenox (until INR > 2.0). SCD VAP bundle:chlorhexadine oral care, HOB >30 degrees. Disposition: ICU care as above. Overall prognosis is poor, need family discussion with SS a nd and Palliative care service--Dr Chavez to consult today (04/18). Code Status: Full Code *Please bill 45 minutes of critical care time spent evaluating the patient, reviewing the d hawa and formulating a plan exclusive of all other procedures. JENARO Mcdermott 04/18/2014 6:42 AM onversion Tra nsaction, Provider Unknown - 04/17/2014 2:12 PM PSTFormatting of this note might be differe nt from the original. Progress Notes by Paula Barnes RPH at 04/17/141411 Author: Paula Barnes RPH Service: (none) Author Type: Pharmacist Filed: 04/17/14 141 Date of Service: 04/17/141411 Status: Signed Systems Development Manager: Paula Barnes RPH (Pharmacist) Clinical Pharmacy Note: Vancomycin Day 6 Vancomycin trough today at 1300 was 17.5 Scr 0.96 mg/dL CrCl 66.8 ml/min WBC 19.2 Continue Vancomycin 1250 mg IV q24h Dose at 1400 Paula Barnes RP 04-17-2014 onver roshan Transaction, Provider Unknown - 04/17/2014 11:07 AM PST Case Management by LEVI Acharya at 04/17/14 1107 Author: LEVI Acharya Service: (none) Author Type: Radiographic Technologist Filed: 04/17/14 1108 Date of Service: 04/17/141106 Status: Signed Systems Development Manager: LEVI Acharya (Radiographic Technologist) Pt re-intubated yesterday. Dr. Chavez to consult today to discuss goals of care. Once Dr. Tian cunningham consults, ICU staff with conference with family to discuss plan of care and give options. onver roshan Transaction, Provider Unknown - 04/17/2014 9:40 AM PST Therapy Progress Note by Jessica Huerta PT at 04/17/14 0940 Author: Jessica Huerta PT Service: (none) Author Type: Physical Therapist Filed: 04/17/14 0945 Date of Service: 04/17/1440 Status: Signed Systems Development Manager: Jessica Huerta PT (Physical Therapist) 04/17/14 0940 PT Last Visit PT Received On 04/17/14 Requires PT Follow Up On hold (see comments) Other Comments Comments Pt remains intubated. Awaiting new orders when/if appropriate. Mai Madrigal ARNP - 04/17/2014 8:58 AM PST Progress Notes by JENARO Mcdermott at 04/17/14 0858 Author: JENARO Mcdermott Service: Flavor Maker Author Type: Nurse Practitioner Filed: 04/17/14 1237 Date of Service: 04/17/1458 Status: Addendum Systems Development Manager: JENARO Mcdermott (Nurse Practitioner) Related Notes: Original Note by JENARO Mcdermott (Nurse Practitioner) filed at 10/[address] [place] [address] Service: Flavor Maker Progress Note Mackenzie Hartley 58 y.o. Hospital Day: LOS: 5 days Post-Op Day: * No surgery found * Consulting Physicians Treatment Team: Consulting Physician: Eric Chavez MD Admitting Provider: Bonnie Greenberg MD SUBJECTIVE Patient Summary: Per Dr Greenberg: The patient is a 58 y.o. 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 She underwent imaging of her abdomen which did not reveal any acute proces s. She was empirically started on broad spectrum antibiotics given her immunosuppressed stat e. She developed a bilateral lower lobe infiltrate, R>L, which was presumed to be due to asp iration, and in the next days, worsened (was initially on BiPAP) but was intubated on 04/12/13 . She was formerly a DNR but she revised her code status. ICU Timeline: 04/12/14: Intubated, admitted to the ICU 04/13/14: Extubated 04/15/14: BIPAP, Atrial Fib treated with Amiodarone 04/16/14: Intubated Events Overnight: CXR shows developing bilateral upper lobe infiltrates. Care shubham bob with family 04/16 to discuss prognosis given re intubation PAST MEDICAL HISTORY Past Medical History Diagnosis Date COPD (chronic obstructive pulmonary disease) Crohn's disease Immunocompromised due to corticosteroids Recurrent aphthous ulcer E-coli UTI Hypokalemia Microcytic anemia Neuropathy Hypertension Embolism and thrombosis of splenic artery Other chronic pain GERD (gastroesophageal reflux disease) Osteoporosis Depression Chronic diarrhea Gastroesophageal reflux disease with hiatal hernia PAST SURGICAL HISTORY Past Surgical History Procedure Laterality Date Abdominal surgery Small intestine surgery Lysis of adhesions Cholecystectomy Appendectomy Hysterectomy Tonsillectomy Portacath placement Left ALLERGIES Allergies Allergen Reactions Demerol [Meperidine] Other (See Comments) Unknown Erythromycin Other (See Comments) unknown Levofloxacin Other (See Comments) tendinitis Reglan [Metoclopramide] Agitation Unknown Penicillins Nausea and Vomiting MEDICATIONS PRIOR TO ADMISSION Prescriptions prior to admission Medication Sig Dispense Refill omeprazole (PRILOSEC) 40 MG capsule Take 40 mg by mouth 2 (two) times daily. SCHEDULED MEDICATIONS albuterol 6 puff Inhalation Q4H chlorhexidine gluconate 15 mL Mouth/Throat Q12H docusate sodium 100 mg Oral BID Or docusate 100 mg Per OG Tube BID enoxaparin 30 mg Subcutaneous Q12H famotidine 20 mg Oral BID Or famotidine 20 mg Intravenous BID hydrocortisone sodium succinate PF 50 mg Intravenous Q8H insulin aspart 0-10 Units Subcutaneous Q6H ipratropium 6 puff Inhalation Q4H piperacillin-tazobactam 3.375 g Intravenous Q8H QUEtiapine 25 mg Oral BID sodium chloride 0.9 % 10 mL Intravenous Q12H GISSELL vancomycin 17 mg/kg Intravenous Q24H warfarin 3 mg Oral Daily CONTINUOUS INFUSIONS dextrose fentaNYL in NS 5 mcg/mL 100 mcg/hr (04/17/14 0250) propofol 50 mcg/kg/min (04/17/14 0642) sodium chloride (IV) 30 mL/hr at 04/15/14 1839 OBJECTIVE VITAL SIGNS Temp: [98.2 F (36.8 C)-99.5 F (37.5 C)] 98.5 F (36.9 C) Heart Rate: [74-123] 77 Resp: [16-24] 18 BP: (83-139)/(50-80) 90/51 mmHg FiO2 : [30 %-36 %] 35 % Intake/Output Summary (Last 24 hours) at 04/17/14 0858 Last data filed at 04/17/14 0530 Gross per 24 hour Intake 2963 ml Output 485 ml Net 2478 ml EXAM GEN: Sedated, intubated, NAD NEURO: PERRLA, unable to assess EOMs, sedated. Daily sedation holiday HEENT: sclerae clear, nonicteric, oral mmm, pink, no exudates NECK: supple, trachea midline, intubated, OG in place HEART: RRR, S1/S2, no murmur, rub or gallop LUNGS/CHEST: clear b/l, no wheezing, crackles or rhonchi, symmetric chest expansion, even/u nlabored respirations, ROLANDO CATH LEFT UPPER CHEST ABD: soft, nondistended, nontender to palpation, no masses, no hepatosplenomegaly EXTR: no edema, clubbing or cyanosis, PICC line SKIN: warm, dry, no rash or mottling; no e/o skin breakdown over the occiput, scapulae, elb ows, sacrum or heels DATA Recent Labs Lab 04/17/1431804/16/1431404/15/14421 WBC 19.2* 20.0* 22.8* HGB 9.2* 10.5* 10.6* HCT 30.7* 36.0 36.1 PLT 385 378 382 Recent Labs Lab 04/17/1431804/16/1431404/15/14 2341 04/15/14 0422 04/12/14 1731 NA 151* 146* -- -- 148* < > 139 K 3.1* 4.4 4.2 < > 3.7 < > 4.1 CL 114* 106 -- -- 109 < > 105 CO2 31 32 -- -- 28 < > 24 BUN 20 20 -- -- 22 < > 15 CREATININE 0.96 0.86 -- -- 0.98 < > 0.96 PROT -- -- -- -- -- -- 5.2* BILITOT -- -- -- -- -- -- 0.3 ALT -- -- -- -- -- -- 18 AST -- -- -- -- -- -- 55* < > = values in this interval not displayed. Recent Labs Lab 04/17/14 0319 04/16/14 0315 04/15/14 0422 INR 1.6 1.5 1.3 IMAGING X-ray Abdomen Ap 04/16/2014 1. Nasogastric tube tip in the stomach. X-ray Chest 1 View 04/17/2014 1. Improving severe diffuse lung disease. Stable tubes and lines. Electronical ly signed by Bennett Abreu MD on 04/17/2014 7:19 AM X-ray Chest 1 View 04/16/2014 1. Tubes and lines, as above. No evidence of pneumothorax. 2. Persistent sever e diffuse lung disease. A M X-ray Chest 1 View 04/15/2014 1. Improving severe diffuse lung disease. Unchanged central line. Electronical ly signed by Bennett Abreu MD on 04/15/2014 7:25 AM X-ray Chest 1 View 04/14/2014 1. Interval removal of the endotracheal tube and nasogastric tube. 2. Persiste nt bilateral diffuse interstitial and airspace opacities X-ray Chest 1 View 04/13/2014 1. Stable chest. X-ray Chest 1 View 04/12/2014 1. Appropriate positioning of support tubes and lines. 2. Multifocal airspace opacities throughout the lungs which may reflect pulmonary edema versus multifocal pneumonia . LEM LIST Principal Problem: Acute respiratory failure Active Problems: Crohn's disease Microcytic anemia Aspiration pneumonia COPD (chronic obstructive pulmonary disease) Embolism and thrombosis of splenic artery Acute gastroenteritis Acute systolic heart failure LVEF 30% Narcotic dependence PAF (paroxysmal atrial fibrillation) ASSESSMENT & PLAN NEURO: Metabolic Encephalopathy: Multifactorial End of Life issues: Was a DNR while in [place] but convinced to be intubated prior to tr cristina, will consult palliative care service and engage in conversation about this i ssjennie CV: Splenic artery thrombosis. Will use prophylactic dose Lovenox, & consider warfarin PAF: Paroxysmal Atrial Fib treated with amiodarone now staying in SR. Idiopathic Cardiomyopathy: LVEF 30% by ECHO from recent ECHO in [place] PULM: Pulmonary Edema: Related to cardiomyopathy and decreased ejection fraction, diuresing. Al heydi followed by elliott today Aspiration Pneumonia: Upper lobe infiltrates with air brachiograms but no predominate orga nism growing in sputum cultures, PCP negative GI/NUTRITION: Crohn's disease. On hydrocortisone IV for chronic steroid dependence. On Remicaide every 6 weeks. Nutrition: Hold on diet with BIPAP now in use RENAL/LYTES: Renal function and electrolytes within normal. Continue to monitor UO and renal function cl osely. Avoid nephrotoxins. ID: Aspiration PNA. On Zosyn and Vancomycin IV. Blood and tracheal CS pending. Will send PCP ear considering that she has been on steroids. Immune compromised: On Remecade but also now with spleenic artery thrombosis. HEME: Chronic microcytic anemia. Will continue to monitor H/H daily and watch out for acute signs of bleeding. Likely from anemia of chronic disease. Spleenic artery thrombosis: Will start Warfarin ENDO: DM: SSI for now. Endotool if with BS>180 x2. MUSC/SKIN: No acute lesions. Chronic changes on arms. Early mobilization and PT once able. Chronic pain issues. Fentanyl infusion. a PROPHYLAXIS: Stress ulcer prophylaxis: H2 jarrod DVT prophylaxis: sub-therapeutic INR--coumadin/lovenox (until INR > 2.0). SCD VAP bundle:chlorhexadine oral care, HOB >30 degrees. Disposition: ICU care as above. Overall prognosis is poor, nned family discussion with MAYRA rich nd and Palliative care service. Discussed and Dr Christianson available to family an ytime over the next several days. Code Status: Full Code *Please bill 50 minutes of critical care time spent evaluating the patient, reviewing the d hawa and formulating a plan exclusive of all other procedures. JENARO Mcdermott 04/17/2014 8:58 AM onversion Tra nsaction, Provider Unknown - 04/16/2014 3:41 PM PSTFormatting of this note might be differe nt from the original. Progress Notes by Nadir Yee RPH at 04/16/14 1541 Author: Nadir Yee RPH Service: Pharmacy Author Type: Pharmacist Filed: 04/16/14 154 Date of Service: 04/16/141540 Status: Signed Systems Development Manager: Nadir Yee RPH (Pharmacist) Vancomycin day 5, trough at 1300 today was 19.3 (goal 15-20). Will continue at same dosing and recheck a trough level on 04/17 at 1300. on[facility] roshan Transaction, Provider Unknown - 04/16/2014 1:25 PM PST Progress Notes by Jacoby Muñoz RD at 04/16/14 2057 Author: Jacoby Muñoz RD Service: (none) Author Type: Registered Dietitian Filed: 04/16/14 6860 Date of Service: 04/16/14 1325 Status: Signed Systems Development Manager: Jacoby Muñoz RD (Registered Dietitian) Nutrition Follow-Up High risk follow up. Assessment: Pt re-intubated this morning, propofol running at 21.2 ml/hr provides approx 560 kcal. Plan is to start Enteral feeds. Wt history/weight change: Last wt recorded was on 04/12, according to I/O's pt is - 1.2 L flu id, has lasix ordered. Nutritionally pertinent labs: Na elevated 146. BG elevated at 212, pt on steroids, ssi orde red per rounds. K, Mg, and phos wnl. Diet order/current intake: NPO x 4. NS at 30 ml/hr. Having mucous brown liquid stools, likely related acute gastroenteritis, also with hx of Cr ohns. Nutrition Diagnosis: Inadequate intake related to sedation induced inability to eat as evidence by NPO x 4 days. Intervention: Recommend Vital High Protein advance as tolerated to goal rate of 70 ml/hr (20hr) to provid e 1400 kcal, 122 g protein, 1400 ml TV, 1170 ml free water. Overall TF and propofol would pr ovide 1960 kcal (25 kcal/kg), 122 g protein (1.5 g/kg) based on pt's admit wt 78.4 kg. Goal: Pt will tolerate TF at goal rate and provide adequate nutrition to meet pt's estimated need s. Recommendations: Vital High protein at goal rate of 70 ml/hr. Monitor lytes closely, replace prn to prevent risk for refeeding syndrome. Monitoring: Will follow up in 3 days or as indicated. Jacoby Muñoz RD on[facility] Transaction, Provider Unknown - 04/16/2014 12:22 PM PST Therapy Progress Note by Rich Jiménez PT at 04/16/14 1222 Author: Rich Jiménez PT Service: (none) Author Type: Physical Therapist Filed: 04/16/14 1921 Date of Service: 04/16/14 1222 Status: Signed Systems Development Manager: Rich Jiménez PT (Physical Therapist) 04/16/14 1222 PT Last Visit PT Received On 04/16/14 (Pt. required re-intubation earlier this a.m. Will hold PT) Requires PT Follow Up On hold (and await new orders when/if appropriate) onver roshan Transaction, Provider Unknown - 04/16/2014 11:51 AM PST Progress Notes by Nadir Yee RPH at 04/16/14 1151 Author: Nadir Yee RPH Service: Pharmacy Author Type: Pharmacist Filed: 04/16/14 1152 Date of Service: 04/16/14 1151 Status: Signed Systems Development Manager: Nadir Yee RPH (Pharmacist) Vancomycin day 5, est crcl 74.5ml/min, awaiting trough level at 1300 today. onver roshan Transaction, Provider Unknown - 04/16/2014 11:37 AM PST Case Management by Alessia Smith RN at 04/16/14 8747 Author: Alessia Smith RN Service: (none) Author Type: Registered Nurse Filed: 04/16/14 8035 Date of Service: 04/16/141136 Status: Addendum Systems Development Manager: Alessia Smith RN (Registered Nurse) Related Notes: Original Note by Alessia Smith RN (Registered Nurse) filed at 04/16/14 8582 Tried to call but number on facesheet is non-functioning. Called [facility] for t elephone number (they have same number). They will also fax a page from pt.s last admission to them that states pt.iIs full code. Will continue to try and connect with per Dr. Hsu request. Kole's phone as listed in the room is [phone]. Spoke with him, he didn't have plans to visit today, he is unemployed and funds are tight. Will let Dr. Segundo know and pos sible phone contact to happen this afternoon. 1300 Kole's number and info given to Dr. Segundo. . Also showed Dr. Segundo fax from [facility], d/c summary from 04/12/14, documenting change from DNR/DNI to full code. Placed i n chart. 1500 Care conference with jamie Sharif, Dr Gareth willard, Tuan RN, student and myself. initially displays sutle anger over medicine no t being able to determine what is causing infection. After Dr Segundo reviewed pt. 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 Will contin ue aggressive care for another day or two per Dr Segundo. onver roshan Transaction, Provider Unknown - 04/16/2014 10:48 AM PST Nurse Progress Note by Becka Lama RN at 04/16/141047 Author: Becka Lama RN Service: (none) Author Type: Registered Nurse Filed: 04/16/149 Date of Service: 04/16/141047 Status: Signed Systems Development Manager: Becka Lama RN (Registered Nurse) Attempted to visit pt for Coumadin Education. Pt intubated in ICU. Coumadin education yovani otero left on chart to review with pt as appropriate. Jannet Roach MD - 04/16/2014 5:31 AM PSTFormatting of this note might be different from the briana ginal. Progress Notes by Jannet Shields MD at 04/16/14530 Author: Jannet Shields MD Service: Flavor Maker Author Type: Flavor Maker Filed: 04/16/1449 Date of Service: 04/16/14530 Status: Signed Systems Development Manager: Jannet Shields MD (Physician) [facility] Service: Flavor Maker Progress Note Mackenzie Hartley 58 y.o. Hospital Day: LOS: 4 days Post-Op Day: * No surgery found * Consulting Physicians Treatment Team: Admitting Provider: Bonnie Greenberg MD SUBJECTIVE Patient Summary: Per Dr Greenberg: The patient is a 58 y.o. 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 She underwent imaging of her abdomen which did not reveal any acute proces s. She was empirically started on broad spectrum antibiotics given her immunosuppressed stat e. She developed a bilateral lower lobe infiltrate, R>L, which was presumed to be due to asp iration, and in the next days, worsened (was initially on BiPAP) but was intubated on 04/12/13 . She was formerly a DNR but she revised her code status. ICU Timeline: 04/12/14: Intubated, admitted to the ICU 04/13/14: Extubated 04/15/14: BIPAP, Atrial Fib treated with Amiodarone 04/16/14: Intubated Events Overnight: Placed on Dexmetatomidine for fidgeting and anxiety. Later became more tachypnic and required intubation. CXR shows developing bilateral upper lobe infiltra petros. PAST MEDICAL HISTORY Past Medical History Diagnosis Date COPD (chronic obstructive pulmonary disease) Crohn's disease Immunocompromised due to corticosteroids Recurrent aphthous ulcer E-coli UTI Hypokalemia Microcytic anemia Neuropathy Hypertension Embolism and thrombosis of splenic artery Other chronic pain GERD (gastroesophageal reflux disease) Osteoporosis Depression Chronic diarrhea Gastroesophageal reflux disease with hiatal hernia PAST SURGICAL HISTORY Past Surgical History Procedure Laterality Date Abdominal surgery Small intestine surgery Lysis of adhesions Cholecystectomy Appendectomy Hysterectomy Tonsillectomy Portacath placement Left ALLERGIES Allergies Allergen Reactions Demerol [Meperidine] Other (See Comments) Unknown Erythromycin Other (See Comments) unknown Levofloxacin Other (See Comments) tendinitis Reglan [Metoclopramide] Agitation Unknown Penicillins Nausea and Vomiting MEDICATIONS PRIOR TO ADMISSION Prescriptions prior to admission Medication Sig Dispense Refill omeprazole (PRILOSEC) 40 MG capsule Take 40 mg by mouth 2 (two) times daily. SCHEDULED MEDICATIONS chlorhexidine gluconate 15 mL Mouth/Throat Q12H docusate sodium 100 mg Oral BID Or docusate 100 mg Per OG Tube BID enoxaparin 30 mg Subcutaneous Q12H famotidine 20 mg Oral BID Or famotidine 20 mg Intravenous BID hydrocortisone sodium succinate PF 50 mg Intravenous Q8H ipratropium-albuterol 3 mL Nebulization Q6H piperacillin-tazobactam 3.375 g Intravenous Q8H sodium chloride 0.9 % 10 mL Intravenous Q12H [facility] vancomycin 17 mg/kg Intravenous Q24H CONTINUOUS INFUSIONS amiodarone infusion 0.5 mg/min (04/15/141836) dexmedetomidine in NS Stopped (04/16/14528) fentaNYL in NS 5 mcg/mL 25 mcg/hr (04/16/14527) propofol 20 mcg/kg/min (04/16/14527) sodium chloride (IV) 30 mL/hr at 04/15/141838 OBJECTIVE VITAL SIGNS Temp: [97.4 F (36.3 C)-98.5 F (36.9 C)] 97.6 F (36.4 C) Heart Rate: [71-113] 101 Resp: [21-42] 42 BP: (127-162)/(67-89) 143/88 mmHg FiO2 : [40 %-100 %] 100 % Intake/Output Summary (Last 24 hours) at 04/16/14 0531 Last data filed at 04/16/14 0422 Gross per 24 hour Intake 2407 ml Output 2615 ml Net -208 ml EXAM GEN: Prior to intubation pulling at BIPAP mask NEURO: GCS [id number] 13 Mental Status: Able to moan and say a few words, but does not really follow commands consi stently CN: Pupils 3 mm bilateral and reactive, face symmetrical Motor: 4/5 in all extremities with purposeful movement Sensory: feels pain in all four extremities HEENT: sclerae clear, nonicteric, oral mmm, pink, no exudates NECK: supple, trachea midline HEART: RRR, S1/S2, no murmur, rub or gallop LUNGS/CHEST: clear b/l, no wheezing, crackles or rhonchi, symmetric chest expansion, even/u nlabored respirations, ROLANDO CATH LEFT UPPER CHEST ABD: soft, nondistended, nontender to palpation, no masses, no hepatosplenomegaly EXTR: no edema, clubbing or cyanosis, PICC line SKIN: warm, dry, no rash or mottling; no e/o skin breakdown over the occiput, scapulae, elb ows, sacrum or heels DATA Recent Labs Lab 04/16/1431404/15/1442104/14/14421 WBC 20.0* 22.8* 20.1* HGB 10.5* 10.6* 10.8* HCT 36.0 36.1 36.2 PLT 378 382 325 Recent Labs Lab 04/16/1431404/15/14 2341 04/15/14201404/15/1442104/14/1442104/12/14 1731 NA 146* -- -- -- 148* -- 147* < > 139 K 4.4 4.2 3.5 < > 3.7 < > 3.6 < > 4.1 CL 106 -- -- -- 109 -- 109 < > 105 CO2 32 -- -- -- 28 -- 31 < > 24 BUN 20 -- -- -- 22 -- 18 < > 15 CREATININE 0.86 -- -- -- 0.98 -- 0.89 < > 0.96 PROT -- -- -- -- -- -- -- -- 5.2* BILITOT -- -- -- -- -- -- -- -- 0.3 ALT -- -- -- -- -- -- -- -- 18 AST -- -- -- -- -- -- -- -- 55* < > = values in this interval not displayed. Recent Labs Lab 04/16/145 04/15/1442104/14/14421 INR 1.5 1.3 1.4 IMAGING PROBLEM LIST Principal Problem: Acute respiratory failure Active Problems: Acute systolic heart failure LVEF 30% Narcotic dependence PAF (paroxysmal atrial fibrillation) Crohn's disease Microcytic anemia Aspiration pneumonia COPD (chronic obstructive pulmonary disease) Embolism and thrombosis of splenic artery Acute gastroenteritis ASSESSMENT & PLAN NEURO: Metabolic Encephalopathy: Multifactorial End of Life issues: Was a DNR while in [place] but convinced to be intubated prior to tr cristina, will consult palliative care service and engage in conversation about this i ssue CV: Splenic artery thrombosis. Will use prophylactic dose Lovenox, & consider warfarin PAF: Paroxysmal Atrial Fib treated with amiodarone now staying in SR. Idiopathic Cardiomyopathy: LVEF 30% by ECHO from recent ECHO in [place] PULM: Pulmonary Edema: Related to cardiomyopathy and decreased ejection fraction, diuresing Aspiration Pneumonia: Upper lobe infiltrates with air brachiograms but no predominate orga nism growing in sputum cultures, PCP negative GI/NUTRITION: Crohn's disease. On hydrocortisone IV for chronic steroid dependence. On Remicaide every 6 weeks. Nutrition: Hold on diet with BIPAP now in use RENAL/LYTES: Renal function and electrolytes within normal. Continue to monitor UO and renal function cl osely. Avoid nephrotoxins. ID: Aspiration PNA. On Zosyn and Vancomycin IV. Blood and tracheal CS pending. Will send PCP ear considering that she has been on steroids. Immune compromised: On Remecade but also now with spleenic artery thrombosis. HEME: Chronic microcytic anemia. Will continue to monitor H/H daily and watch out for acute signs of bleeding. Likely from anemia of chronic disease. Spleenic artery thrombosis: Will start Warfarin ENDO: DM: SSI for now. Endotool if with BS>180 x2. MUSC/SKIN: No acute lesions. Chronic changes on arms. Early mobilization and PT once able. PROPHYLAXIS: Stress ulcer prophylaxis: H2 jarrod DVT prophylaxis: Therapeutic INR. SCD VAP bundle:chlorhexadine oral care, HOB >30 degrees. Disposition: ICU care as above. Overall prognosis is poor, nned family discussion with SS a nd and Palliative care service. Code Status: Full Code *Please bill 45 minutes of critical care time spent evaluating the patient, reviewing the d hawa and formulating a plan exclusive of all other procedures. Code Status: Full Code *Please bill 40 minutes of critical care time spent evaluating the patient, reviewing the d hawa and formulating a plan exclusive of all other procedures. JANNET SHIELDS MD 04/16/2014 5:31 AM on[facility] n Transaction, Provider Unknown - 04/15/2014 6:02 PM PSTFormatting of this note might be di fferent from the original. Progress Notes by Hipolito Isaac at 04/15/141801 Author: Hipolito Isaac Service: (none) Author Type: Filed: 04/15/141801 Date of Service: 04/15/141801 Status: Signed Systems Development Manager: Hipolito Isaac () Pt sleeping. Will continue to provide care as needed/requested. Chaplain Chandler onver roshan Transaction, Provider Unknown - 04/15/2014 3:45 PM PST Therapy Progress Note by Rich Jiménez PT at 04/15/14 4083 Author: Rich Jiménez PT Service: (none) Author Type: Physical Therapist Filed: 04/15/14 1743 Date of Service: 04/15/14 1545 Status: Signed Systems Development Manager: Rich Jiménez PT (Physical Therapist) 04/15/14 1548 PT Last Visit PT Received On 04/15/14 Reason for Treatment Deconditioning Requires PT Follow Up Yes Follow up PT Only? Yes Assistance Required 1 person;2 person Precautions Other Precautions (fall risk) Other Comments Comments Pt. is in bed. She appears lethargic, but is AOx3. Pt. is agreeable to participa te in PT. Pt. was able to perform some AAROM in bed as a LE warm up. Pt. is with noticable LE atrophy. SHe is able to maintain sats. of 94-96% during activity while on 15L oximask. Pt. required modA to assume upright at EOB. She maintained upright sitting balance w/ SBA/ CGA from PT. Pt. has tendancy to lean forward at times. Pt. required maxAx1-2 (for lines) to transfer from bed to chair. Pt. demo's very minimal foot clearance, but was able to ambu late approx. 5 ft. w/ shufling gait cycle. Pt. was incontinent of bowel. LUKASZ Platt assist ed w/ cleaning needs. After pt. had been sitting in chair for approx. 15 minutes she reques laxmi to go back to bed. She was assisted back to bed w/ maxA and repositioned in bed for com fort. Cognition Overall Cognitive Status Impaired Orientation Level Oriented Comments (lethargic) Bed Mobility Supine to Sit Mod assist (BLEs OOB or trunk to upright);Max assist (BLEs OOB & trunk to upr ight) Scooting Moderate assist Transfers Sit to/from Stand Maximal assist (to arise AND lower);x 1 person;x 2 person;Safety concerns Bed to/from Chair Maximal assist (to arise AND lower);x 1 person;x 2 person;Safety concerns Mobility Ambulation Assistance Maximal assist;X1;X2;Safety concerns Maximal Ambulation Distance (feet) 5 Total Ambulation Distance (feet) 5 Distance limited by? Patient's ability Pattern Decreased laisha;Right swing foot doesn't pass stance foot;Left swing foot doesn't pass stance foot;Narrow base;Shuffling;Forward flexed;Step to Assistive Device Walker front wheeled Static Sitting Balance Static Sitting-Balance Support Feet supported Static Sitting-Level of Assistance Attains midline;Maintains midline;Doesn't maintain midli ne;Minimal assist;Standby assist Supine Supine-Exercise Type Ankle pumps;Quad sets;Short arc quads;Heel slides;ABD/ADD Supine-Exercise Comments 5-10 reps. Requires min/modA to complete full ROM Activity Tolerance Activity Tolerance Patient limited by fatigue;Treatment limited secondary to medical compli cations;Patient limited by shortness of breath (SOB) Nurse Made Aware yes Plan Treatment/Interventions Continue per Primary PT POC Progress Slow progress, decreased activity tolerance Recommendation Recommendations SNF (due to profound deconditioning/weakness) onver roshan Transaction, Provider Unknown - 04/15/2014 11:46 AM PST Case Management by LEVI Acharya at 04/15/14 1146 Author: LEVI Acharya Service: (none) Author Type: Radiographic Technologist Filed: 04/15/14 1150 Date of Service: 04/15/141145 Status: Addendum Systems Development Manager: LEVI Acharya (Radiographic Technologist) Related Notes: Original Note by LEVI Acharya (Radiographic Technologist) filed at 04/15/14 1148 Attended morning rounds. Pt is now on bi-pap. called and received update from RN. Informed that he would not be visiting pt today. He has not visited pt since her admit. I have placed pt on list at [facility] as a back up plan as she will likely need SNF for reha b. PT notes indicate this as well. [facility] - [phone] onver roshan Transaction, Provider Unknown - 04/15/2014 8:12 AM PST Progress Notes by Nadir Yee RPH at 04/15/14811 Author: Nadir Yee RPH Service: Pharmacy Author Type: Pharmacist Filed: 04/15/14811 Date of Service: 04/15/14811 Status: Signed Systems Development Manager: Nadir Yee RPH (Pharmacist) Vancomycin day 4, est crcl 65.4ml/min, level this am at 0422 was 24.8, will change dosing t o 1250mg iv q24hrs with next dose at 1400 today and will recheck trough level at 1300 on 04/16 Jannet Roach MD - 04/15/2014 6:45 AM PSTFormatting of this note might be different from the briana ginal. Progress Notes by Jannet Shields MD at 04/15/14 0645 Author: Jannet Shields MD Service: Flavor Maker Author Type: Flavor Maker Filed: 04/15/14 0702 Date of Service: 04/15/1445 Status: Signed Systems Development Manager: Jannet Shields MD (Physician) [facility] Service: Flavor Maker Progress Note Mackenzie Hartley 58 y.o. Hospital Day: LOS: 3 days Post-Op Day: * No surgery found * Consulting Physicians Treatment Team: Admitting Provider: Bonnie Greenberg MD SUBJECTIVE Patient Summary: The patient is a 58 y.o. 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 She underwent imaging of her abdomen which did not reveal any acute process. She was empiri khadar started on broad spectrum antibiotics given her immunosuppressed state. She developed a bilateral lower lobe infiltrate, R>L, which was presumed to be due to aspiration, and in t he next days, worsened (was initially on BiPAP) but was intubated on 04/12/13. She was formerl y a DNR but she revised her code status. ICU Timeline: 04/12/14: Intubated, admitted to the ICU 04/13/14: Extubated 04/15/14: BIPAP Events Overnight: Became tachycardic and developed more hypoxemia requiring BIPAP. A trial Fib with increased rate treated with amiodarone. PAST MEDICAL HISTORY Past Medical History Diagnosis Date COPD (chronic obstructive pulmonary disease) Crohn's disease Immunocompromised due to corticosteroids Recurrent aphthous ulcer E-coli UTI Hypokalemia Microcytic anemia Neuropathy Hypertension Embolism and thrombosis of splenic artery Other chronic pain GERD (gastroesophageal reflux disease) Osteoporosis Depression Chronic diarrhea Gastroesophageal reflux disease with hiatal hernia PAST SURGICAL HISTORY Past Surgical History Procedure Laterality Date Abdominal surgery Small intestine surgery Lysis of adhesions Cholecystectomy Appendectomy Hysterectomy Tonsillectomy Portacath placement Left ALLERGIES Allergies Allergen Reactions Demerol [Meperidine] Other (See Comments) Unknown Erythromycin Other (See Comments) unknown Levofloxacin Other (See Comments) tendinitis Reglan [Metoclopramide] Agitation Unknown Penicillins Nausea and Vomiting MEDICATIONS PRIOR TO ADMISSION Prescriptions prior to admission Medication Sig Dispense Refill omeprazole (PRILOSEC) 40 MG capsule Take 40 mg by mouth 2 (two) times daily. SCHEDULED MEDICATIONS chlorhexidine gluconate 15 mL Mouth/Throat Q12H docusate sodium 100 mg Oral BID Or docusate 100 mg Per OG Tube BID famotidine 20 mg Oral BID Or famotidine 20 mg Intravenous BID hydrocortisone sodium succinate PF 100 mg Intravenous Q8H ipratropium-albuterol 3 mL Nebulization Q6H piperacillin-tazobactam 3.375 g Intravenous Q8H sodium chloride 0.9 % 10 mL Intravenous Q12H [facility] vancomycin 17 mg/kg Intravenous Q12H CONTINUOUS INFUSIONS amiodarone infusion 1 mg/min (04/15/14 0554) fentaNYL in NS 5 mcg/mL Stopped (04/13/142339) propofol Stopped (04/13/142339) sodium chloride (IV) 30 mL/hr at 04/14/14 0800 OBJECTIVE VITAL SIGNS Temp: [97.1 F (36.2 C)-98 F (36.7 C)] 97.7 F (36.5 C) Heart Rate: [65-132] 109 Resp: [18-28] 28 BP: (116-145)/(61-85) 145/83 mmHg FiO2 : [60 %] 60 % Intake/Output Summary (Last 24 hours) at 04/15/14 0645 Last data filed at 04/15/14 0600 Gross per 24 hour Intake 1683.1 ml Output 2445 ml Net -761.9 ml EXAM GEN: awake, alert, oriented x 2, NAD NEURO: PERRLA, EOMI, no facial asymmetry, moves all extremities well HEENT: sclerae clear, nonicteric, oral mmm, pink, no exudates NECK: supple, trachea midline HEART: RRR, S1/S2, no murmur, rub or gallop LUNGS/CHEST: clear b/l, no wheezing, crackles or rhonchi, symmetric chest expansion, even/u nlabored respirations, ROLANDO CATH LEFT UPPER CHEST ABD: soft, nondistended, nontender to palpation, no masses, no hepatosplenomegaly EXTR: no edema, clubbing or cyanosis SKIN: warm, dry, no rash or mottling; no e/o skin breakdown over the occiput, scapulae, elb ows, sacrum or heels DATA Recent Labs Lab 04/15/1442104/14/1442104/13/14 0640 WBC 22.8* 20.1* 21.0* HGB 10.6* 10.8* 10.0* HCT 36.1 36.2 32.7* PLT 382 325 281 Recent Labs Lab 04/15/1442104/14/14 1805 04/14/1442104/13/14 0441 04/12/14 1731 NA 148* -- 147* -- 141 139 K 3.7 3.2* 3.6 < > 5.4* 4.1 CL 109 -- 109 -- 107 105 CO2 28 -- 31 -- 24 24 BUN 22 -- 18 -- 14 15 CREATININE 0.98 -- 0.89 -- 0.72 0.96 PROT -- -- -- -- -- 5.2* BILITOT -- -- -- -- -- 0.3 ALT -- -- -- -- -- 18 AST -- -- -- -- -- 55* < > = values in this interval not displayed. Recent Labs Lab 04/15/1442104/14/1442104/13/14 0920 INR 1.3 1.4 2.5 IMAGING 1. Interval removal of the endotracheal tube and nasogastric tube. 2. Persistent bilateral diffuse interstitial and airspace opacities LEM LIST Principal Problem: Acute respiratory failure Active Problems: Acute systolic heart failure LVEF 30% Narcotic dependence Crohn's disease Microcytic anemia Sepsis(995.91) Aspiration pneumonia COPD (chronic obstructive pulmonary disease) Embolism and thrombosis of splenic artery Acute gastroenteritis ASSESSMENT & PLAN NEURO: Metabolic Encephalopathy: multifactorial CV: Splenic artery thrombosis. Will use prophylactic dose Lovenox, & consider warfarin PULM: Pulmonary Edema: Related to cardiomyopathy and decreased ejection fraction, diuresing GI/NUTRITION: Crohn's disease. On hydrocortisone IV for chronic steroid dependence. On Remicaide every 6 weeks. Nutrition: Hold on diet with BIPAP now in use RENAL/LYTES: Renal function and electrolytes within normal. Continue to monitor UO and renal function cl osely. Avoid nephrotoxins. ID: Aspiration PNA. On Zosyn and Vancomycin IV. Blood and tracheal CS pending. Will send PCP ear considering that she has been on steroids. HEME: Chronic microcytic anemia. Will continue to monitor H/H daily and watch out for acute signs of bleeding. Likely from anemia of chronic disease. ENDO: DM: SSI for now. Endotool if with BS>180 x2. MUSC/SKIN: No acute lesions. Chronic changes on arms. Early mobilization and PT once able. PROPHYLAXIS: Stress ulcer prophylaxis: H2 jarrod DVT prophylaxis: Therapeutic INR. SCD VAP bundle:chlorhexadine oral care, HOB >30 degrees. Disposition: ICU care as above. . Code Status: Full Code *Please bill 45 minutes of critical care time spent evaluating the patient, reviewing the d hawa and formulating a plan exclusive of all other procedures. Code Status: Full Code *Please bill 40 minutes of critical care time spent evaluating the patient, reviewing the d hawa and formulating a plan exclusive of all other procedures. JANNET SHIELDS MD 04/15/2014 6:45 AM onversio n Transaction, Provider Unknown - 04/14/2014 6:51 PM PSTFormatting of this note might be di fferent from the original. Progress Notes by Alireza Vides RPH at 04/14/141850 Author: Alireza Vides RPH Service: (none) Author Type: Pharmacist Filed: 04/14/141850 Date of Service: 04/14/141850 Status: Signed Systems Development Manager: Alireza Vides RPH (Pharmacist) vanco level came back high at 33.0. Will hold current dose and redraw a level tomorrow morn ing with am labs. Goal trough 15-20. onver roshan Transaction, Provider Unknown - 04/14/2014 1:36 PM PST Therapy Progress Note by Juma Bazzi PT at 04/14/14 9166 Author: Juma Bazzi PT Service: (none) Author Type: Physical Therapist Filed: 04/14/14 0073 Date of Service: 04/14/141335 Status: Signed Systems Development Manager: Juma Bazzi PT (Physical Therapist) 04/14/14 1336 PT Last Visit PT Received On 04/14/14 Reason for Treatment Deconditioning;Other (comment) (Acute Resp Failure; co-morbidities) Requires PT Follow Up Awaiting tx order Follow up PT Only? Yes (Further mobility assessment) PT Eval/Reassessment Date 04/14/14 Assistance Required 1 person;2 person [employer] Technical Lead Senior Developer Needed No Requires PT Follow Up Awaiting tx order Plan Treatment/Interventions Amb with mobility aide;Balance training;Bed mobility training;Thera peutic exercise;Transfer training PT Frequency Once per day;5-7x/wk Care Duration (# of days) 7 # of days Precautions Other Precautions Fall risk; deconditioned Home Environment Type of Home Home one story Home Exterior Layout 1-3 steps Additional Comments Will need further assistance with verifying patient's history/PLOF as t he pt demonstrates decreased cognition during PT Evaluation. Recommendation Recommendations SNF Equipment Recommended (TBD; likely will need an assistive device) Recommendation Comments Based on pt's limited mobility during today's evaluation, the pt dasha bailey could benefit from SNF due to her severe deconditioning and weakness. Pt unable to cassandra d today all the way during today's evaluation w/ maximal assist. Will continue to assess as pt's mentation progresses. Prior Function Level of [place] Independent with ADLs;Independent with functional mobility;Independe nt with IADLs Lives With Spouse Employment Retired for disability Comments Per pt report at end of session as alertness was improving; she notes that she was independent with most mobility, but does note limitations and reduced activity tolerance. P t denies using any walking aides for support prior to hospitalization. RLE Assessment RLE Assessment X (Deconditioning LORETO (MMT < 3/5); visibly atrophy LORETO) LLE Assessment LLE Assessment X Cognition Overall Cognitive Status Impaired Orientation Level Oriented Comments Lethargic but cooperative; very labile regarding her mobility limitations Sensation Light Touch No apparent deficits Additional Comments Pt able to detect light touch sensation LORETO Perception Inattention/Neglect Appears intact Proprioception Proprioception Not tested Vision-Basic Assessment Current Vision Wears contacts (Not currently present) Assessment of Patient Status Assessment of Patient Status Decreased UE strength;Decreased LE strength;Decreased functio nal mobility;Decreased ADL status;Decreased cognition;Pain;Decreased endurance Prognosis Should progress with skilled therapy intervention Safety Devices Safety Devices in Place Yes (Pt supine in bed w/ RN aware and present) Restraints Initially in Place No 04/14/14 1336 PT Last Visit PT Received On 04/14/14 Reason for Treatment Deconditioning;Other (comment) (Acute Resp Failure; co-morbidities) Requires PT Follow Up Awaiting tx order Follow up PT Only? Yes (Further mobility assessment) PT Eval/Reassessment Date 04/14/14 Assistance Required 1 person;2 person [employer] Technical Lead Senior Developer Needed No Precautions Other Precautions Fall risk; deconditioned Other Comments Comments Chart reviewed, evaluation completed. Per H/P: Patient is a 58 y.o. 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 Pt recently intubated on 04/12, now on mask with 10 L suppl emental O2 with 96% SpO2. Pt very lethargic during today's PT evaluation, but was agreeable and cooperative. Pt requires prolonged amount of time to respond/complete actions requested by PT. Pt has notable atrophy of the LEs (especially gastroc/soleus), will likely require po st-acute rehabilitation for returning to function due to her severe deconditioning. Pt requi red mod to max A for most bed mobility, and max A x 1 for standing. Pt unable to tolerate st anding due to weakness of the LEs (pt very labile regarding her inability to stand at this t eugenio). Pt required mod A x 1 for scooting along EOB. Pt participated in light supine/seated t herapeutic exercise to promote strength and ROM for improved functional mobility skills. Vi tals after activity in supine: HR 78, BP 126/79, SpO2 94% w/ 10L. Completed today's evaluat ion w/ 1x assist, but for progressed mobility the pt likely will require a second assist due to weakness and reduced LOC. Cognition Overall Cognitive Status Impaired Orientation Level Oriented Comments Lethargic but cooperative; very labile regarding her mobility limitations Bed Mobility Rolling Moderate assist Supine to Sit Mod assist (BLEs OOB or trunk to upright) Sit to Supine Max assist (BLEs into bed & trunk to lower) Scooting Moderate assist Transfers Sit to/from Stand Maximal assist (to arise AND lower);x 1 person Mobility Ambulation Assistance Not performed;Safety concerns;CRISTOBAL (Pt extremely fatigued; unable to stand without max A) Balance Balance Yes (Pt required Max A x 1 to stand with UE support via FWW) Supine Supine-Exercise Type Ankle pumps;Quad sets;ABD/ADD;Heel slides;Resisted hip/knee extension Supine-Exercise Comments x5-10 Reps LORETO to promote strength and ROM for improved functional mobility Seated Seated-Exercise Type Long arc quads Seated-Exercise Comments x 5 B; unable to complete full ROM secondary to weakness Modalities Modalities Other therapy Other Therapy Ed on PT POC, safe mobility techniques; ed on mobilizing with her LEs in bed to prevent further deconditioning Activity Tolerance Activity Tolerance Patient limited by fatigue;Patient limited by pain Nurse Made Aware RN aware Safety Devices Safety Devices in Place Yes (Pt supine in bed w/ RN aware and present) Restraints Initially in Place No Plan Treatment/Interventions Amb with mobility aide;Balance training;Bed mobility training;Thera peutic exercise;Transfer training PT Frequency Once per day;5-7x/wk Care Duration (# of days) 7 # of days Recommendation Recommendations SNF Equipment Recommended (TBD; likely will need an assistive device) Requires PT Follow Up Awaiting tx order Recommendation Comments Based on pt's limited mobility during today's evaluation, the pt dasha bailey could benefit from SNF due to her severe deconditioning and weakness. Pt unable to cassandra d today all the way during today's evaluation w/ maximal assist. Will continue to assess as pt's mentation progresses. onver roshan Transaction, Provider Unknown - 04/14/2014 12:10 PM PST Progress Notes by Deborah Torres at 04/14/14 1210 Author: Deborah Torres Service: (none) Author Type: Filed: 04/14/14 1211 Date of Service: 04/14/141209 Status: Signed Systems Development Manager: Deborah Torres () This a new pt. Attempted visit, but pt is sedated and on bi-pap. No familly present at this time. Chaplain Deborah Torres onver roshan Transaction, Provider Unknown - 04/14/2014 9:42 AM PST Case Management by LEVI Acharya at 04/14/1442 Author: LEVI Acharya Service: (none) Author Type: Radiographic Technologist Filed: 04/14/1443 Date of Service: 04/14/14941 Status: Signed Systems Development Manager: LEVI Acharya (Radiographic Technologist) 04/14/1439 Discharge Planning Evaluation Admitting Diagnosis acute resp failure Readmission No Living Arrangements Spouse/significant other Support Systems Spouse/significant other Type of Residence Private residence House type House-1 story Steps to enter (no stairs) Independent with ADL's Yes Independent with Mobility Yes Home Care Services No Caregiver after Discharge Other (comment) ( is looking for work and is not sure if he will have a job when pt is d/c'd.) Prior functional status Per , pt could not go longer than 20 min with activity. Was very weak prior to admit because she was not eating much. Pt is on coumadin. Her PCP manag es the coumadin. Resources Financial concerns Yes ( unemployed) Transportation issues No Patient/Family concerns No Anticipated Disposition Facility Type Home Met with: pt's (phone call) and discussed discharge planning, Pt is a 58 y.o., female. Pt is now extubated. Need PT to eval to determine whether pt would benefit from HHPT or short term rehab at [facility] or SNF. Patient's PCP is: Neel Fernandes Patient's insurance:Medicare Coverage concerns: none reported Medication coverage/concerns: [employer] Bedside Delivery: Community resources utilized / needed: Assistance in transportation: can transport Identification of any specific education / training: Barriers to Discharge / Alternative housing needed: Anticipated DCP: Home with assist from . May need HHPT via [facility]. May n eed [facility]?? DEMAROC MONTEZ onver roshan Transaction, Provider Unknown - 04/14/2014 9:29 AM PST Case Management by LEVI Acharya at 04/14/14928 Author: LEVI Achayra Service: (none) Author Type: Radiographic Technologist Filed: 04/14/1444 Date of Service: 04/14/14928 Status: Signed Systems Development Manager: LEVI Acharya (Radiographic Technologist) Pt is sleeping with oxymask on. She was extubated early this morning. is not at th e bedside. I called to obtain assessment. rZeferino fishman MD - 04/14/2014 5:29 AM PST Progress Notes by Zeferino Aly MD at 04/14/14528 Author: Zeferino Aly MD Service: Flavor Maker Author Type: Flavor Maker Filed: 04/14/14537 Date of Service: 04/14/14528 Status: Signed Systems Development Manager: Zeferino Aly MD (Physician) [facility] Service: Flavor Maker Progress Note Mackenzie Hartley 58 y.o. Hospital Day: LOS: 2 days Post-Op Day: * No surgery found * Consulting Physicians Treatment Team: Admitting Provider: Bonnie Greenberg MD SUBJECTIVE Patient Summary: The patient is a 58 y.o. 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 in [place] for nausea, vomiting previously ing ested food, increasing abdominal discomfort and worsening diarrhea over a period of one day. She underwent imaging of her abdomen which did not reveal any acute process. She was empiri khadar started on broad spectrum antibiotics given her immunosuppressed state. She developed a bilateral lower lobe infiltrate, R>L, which was presumed to be due to aspiration, and in t he next days, worsened (was initially on BiPAP) but was intubated on 04/12/13. She was formerl y a DNR but she revised her code status. ICU Timeline: 04/12/14: Intubated, admitted to the ICU Events Overnight: Extubated without difficulty PAST MEDICAL HISTORY Past Medical History Diagnosis Date COPD (chronic obstructive pulmonary disease) Crohn's disease Immunocompromised due to corticosteroids Recurrent aphthous ulcer E-coli UTI Hypokalemia Microcytic anemia Neuropathy Hypertension Embolism and thrombosis of splenic artery Other chronic pain GERD (gastroesophageal reflux disease) Osteoporosis Depression Chronic diarrhea Gastroesophageal reflux disease with hiatal hernia PAST SURGICAL HISTORY Past Surgical History Procedure Laterality Date Abdominal surgery Small intestine surgery Lysis of adhesions Cholecystectomy Appendectomy Hysterectomy Tonsillectomy Portacath placement Left ALLERGIES Allergies Allergen Reactions Demerol [Meperidine] Other (See Comments) Unknown Erythromycin Other (See Comments) unknown Levofloxacin Other (See Comments) tendinitis Reglan [Metoclopramide] Agitation Unknown Penicillins Nausea and Vomiting MEDICATIONS PRIOR TO ADMISSION Prescriptions prior to admission Medication Sig Dispense Refill omeprazole (PRILOSEC) 40 MG capsule Take 40 mg by mouth 2 (two) times daily. SCHEDULED MEDICATIONS chlorhexidine gluconate 15 mL Mouth/Throat Q12H docusate sodium 100 mg Oral BID Or docusate 100 mg Per OG Tube BID famotidine 20 mg Oral BID Or famotidine 20 mg Intravenous BID hydrocortisone sodium succinate PF 100 mg Intravenous Q8H influenza vaccine quadrivalent-split 0.5 mL Intramuscular Once Immunization piperacillin-tazobactam 3.375 g Intravenous Q8H pneumococcal 23-valent vaccine 0.5 mL Intramuscular Once Immunization sodium chloride 0.9 % 10 mL Intravenous Q12H GISSELL vancomycin 17 mg/kg Intravenous Q12H CONTINUOUS INFUSIONS fentaNYL in NS 5 mcg/mL Stopped (04/13/142339) propofol Stopped (04/13/142339) sodium chloride (IV) 30 mL/hr at 04/13/14 0800 OBJECTIVE VITAL SIGNS Temp: [98.4 F (36.9 C)-98.9 F (37.2 C)] 98.4 F (36.9 C) Heart Rate: [67-103] 73 Resp: [16-30] 20 BP: (108-133)/(64-84) 109/68 mmHg FiO2 : [40 %-41 %] 40 % Intake/Output Summary (Last 24 hours) at 04/14/14 0530 Last data filed at 04/13/14 2302 Gross per 24 hour Intake 2246.03 ml Output 3035 ml Net -788.97 ml EXAM GEN: awake, alert, oriented x3, NAD NEURO: PERRLA, EOMI, no facial asymmetry, moves all extremities well HEENT: sclerae clear, nonicteric, oral mmm, pink, no exudates NECK: supple, trachea midline HEART: RRR, S1/S2, no murmur, rub or gallop LUNGS: clear b/l, no wheezing, crackles or rhonchi, symmetric chest expansion, even/unlabor ed respirations ABD: soft, nondistended, nontender to palpation, no masses, no hepatosplenomegaly EXTR: no edema, clubbing or cyanosis SKIN: warm, dry, no rash or mottling; no e/o skin breakdown over the occiput, scapulae, elb ows, sacrum or heels DATA Recent Labs Lab 04/14/1442104/13/14 0640 04/12/14 1731 WBC 20.1* 21.0* 18.7* HGB 10.8* 10.0* 10.3* HCT 36.2 32.7* 33.3* PLT 325 281 283 Recent Labs Lab 04/14/1442104/14/14 0046 04/13/14 1354 04/13/14 0441 04/12/14 1731 NA 147* -- -- 141 139 K 3.6 3.8 3.0* 5.4* 4.1 CL 109 -- -- 107 105 CO2 31 -- -- 24 24 BUN 18 -- -- 14 15 CREATININE 0.89 -- -- 0.72 0.96 PROT -- -- -- -- 5.2* BILITOT -- -- -- -- 0.3 ALT -- -- -- -- 18 AST -- -- -- -- 55* Recent Labs Lab 04/14/1442104/13/14 0920 04/12/14 1731 INR 1.4 2.5 4.2 IMAGING PROBLEM LIST Active Problems: Acute respiratory failure Crohn's disease Microcytic anemia Sepsis(995.91) Aspiration pneumonia COPD (chronic obstructive pulmonary disease) Embolism and thrombosis of splenic artery Acute gastroenteritis ASSESSMENT & PLAN NEURO: Alert but sleepy and requesting narcotics CV: Not in shock. Diuresis with good volume reduction Splenic artery thrombosis. Will bridge with Lovenox once with INR that is closer to 2. PULM: Extubated and will continue abs/beta agonists COPD. Not in acute exacerbation. Will continue PRN ALYCE. GI/NUTRITION: Will start nutrition today. Crohn's disease. On hydrocortisone IV for chronic steroid dependence. On Remicaide every 6 weeks. RENAL/LYTES: Renal function and electrolytes within normal. Continue to monitor UO and renal function cl osely. Avoid nephrotoxins. ID: Aspiration PNA. On Zosyn and Vancomycin IV. Blood and tracheal CS pending. Will send PCP ear considering that she has been on steroids. HEME: Chronic microcytic anemia. Will continue to monitor H/H daily and watch out for acute signs of bleeding. Likely from anemia of chronic disease. ENDO: SSI for now. Endotool if with BS>180 x2. MUSC/SKIN: No acute lesions. Chronic changes on arms. Early mobilization and PT once able. PROPHYLAXIS: Stress ulcer prophylaxis: H2 jarrod DVT prophylaxis: Therapeutic INR. SCD VAP bundle:chlorhexadine oral care, HOB >30 degrees. Disposition: ICU care as above. Will diurese today and evaluate for readiness for liberatio n from [facility] later tonight. Code Status: Full Code *Please bill 45 minutes of critical care time spent evaluating the patient, reviewing the d hawa and formulating a plan exclusive of all other procedures. Code Status: Full Code *Please bill 40 minutes of critical care time spent evaluating the patient, reviewing the d hawa and formulating a plan exclusive of all other procedures. Zeferino Aly MD 04/14/2014 5:30 AM Bonnie Rodriguez MD - 04/13/2014 1:15 PM PST Progress Notes by Bonnie Greenberg MD at 04/13/14 4054 Author: Bonnie Greenberg MD Service: Flavor Maker Author Type: Physician Filed: 04/13/14 5244 Date of Service: 04/13/14 3939 Status: Signed Systems Development Manager: Bonnie Greenberg MD (Physician) [facility] Service: Flavor Maker Progress Note Mackenzie Hartley 58 y.o. Hospital Day: LOS: 1 day Post-Op Day: * No surgery found * Consulting Physicians Treatment Team: Admitting Provider: Bonnie Greenberg MD SUBJECTIVE Patient Summary: The patient is a 58 y.o. 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 She underwent imaging of her abdomen which did not reveal any acute process. She was empiri khadar started on broad spectrum antibiotics given her immunosuppressed state. She developed a bilateral lower lobe infiltrate, R>L, which was presumed to be due to aspiration, and in t he next days, worsened (was initially on BiPAP) but was intubated on 04/12/13. She was formerl y a DNR but she revised her code status. ICU Timeline: 04/12/14: Intubated, admitted to the ICU Events Overnight: No acute events. Hemodynamically stable. PAST MEDICAL HISTORY Past Medical History Diagnosis Date COPD (chronic obstructive pulmonary disease) Crohn's disease Immunocompromised due to corticosteroids Recurrent aphthous ulcer E-coli UTI Hypokalemia Microcytic anemia Neuropathy Hypertension Embolism and thrombosis of splenic artery Other chronic pain GERD (gastroesophageal reflux disease) Osteoporosis Depression Chronic diarrhea Gastroesophageal reflux disease with hiatal hernia PAST SURGICAL HISTORY Past Surgical History Procedure Laterality Date Abdominal surgery Small intestine surgery Lysis of adhesions Cholecystectomy Appendectomy Hysterectomy Tonsillectomy Portacath placement Left ALLERGIES Allergies Allergen Reactions Demerol [Meperidine] Other (See Comments) Unknown Erythromycin Other (See Comments) unknown Levofloxacin Other (See Comments) tendinitis Reglan [Metoclopramide] Agitation Unknown Penicillins Nausea and Vomiting MEDICATIONS PRIOR TO ADMISSION Prescriptions prior to admission Medication Sig Dispense Refill omeprazole (PRILOSEC) 40 MG capsule Take 40 mg by mouth 2 (two) times daily. SCHEDULED MEDICATIONS chlorhexidine gluconate 15 mL Mouth/Throat Q12H docusate sodium 100 mg Oral BID Or docusate 100 mg Per OG Tube BID famotidine 20 mg Oral BID Or famotidine 20 mg Intravenous BID hydrocortisone sodium succinate PF 100 mg Intravenous Q8H [START ON 04/14/2014] influenza vaccine quadrivalent-split 0.5 mL Intramuscular Once Imm unization piperacillin-tazobactam 3.375 g Intravenous Q8H [START ON 04/14/2014] pneumococcal 23-valent vaccine 0.5 mL Intramuscular Once Immunizat ion sodium chloride 0.9 % 10 mL Intravenous Q12H GISSELL vancomycin 17 mg/kg Intravenous Q12H CONTINUOUS INFUSIONS fentaNYL in NS 5 mcg/mL 75 mcg/hr (04/13/14 1038) propofol 30 mcg/kg/min (04/13/14 1018) sodium chloride (IV) 30 mL/hr at 04/13/14 0800 OBJECTIVE VITAL SIGNS Temp: [97.8 F (36.6 C)-99.6 F (37.6 C)] 98.9 F (37.2 C) Heart Rate: [89-111] 101 Resp: [16-22] 20 BP: (114-135)/(65-84) 128/82 mmHg FiO2 : [40 %] 40 % Intake/Output Summary (Last 24 hours) at 04/13/14 1315 Last data filed at 04/13/14 1250 Gross per 24 hour Intake 1181 ml Output 2550 ml Net -1369 ml EXAM GEN: sedated, intubated NEURO: PERRLA, EOMI, no facial asymmetry, Cushingoid HEENT: sclerae clear, nonicteric, oral mmm, pink, no exudates , orotracheal tube in place NECK: supple, trachea midline HEART: PMI laterally displaced, tachycardic, S1/S2, no murmur, rub or gallop LUNGS: Equal expansion, no crackles or wheezing ABD: soft, nondistended, nontender to palpation, no masses, no hepatosplenomegaly EXTR: with non pitting pedal edema, clubbing or cyanosis; atrophied calf muscles SKIN: warm, dry, no rash or mottling; no e/o skin breakdown over the occiput, scapulae, elb ows, sacrum or heels; multiple slightly hyperemic patches on both arms. DATA Recent Labs Lab 04/13/14 0640 04/12/14 1731 WBC 21.0* 18.7* HGB 10.0* 10.3* HCT 32.7* 33.3* PLT 281 283 Recent Labs Lab 04/13/14 0441 04/12/14 1731 NA 141 139 K 5.4* 4.1 CL 107 105 CO2 24 24 BUN 14 15 CREATININE 0.72 0.96 PROT -- 5.2* BILITOT -- 0.3 ALT -- 18 AST -- 55* Recent Labs Lab 04/13/14 0920 04/12/14 1731 INR 2.5 4.2 IMAGING X-ray Chest 1 View 04/13/2014 1. Stable chest. X-ray Chest 1 View 04/12/2014 1. Appropriate positioning of support tubes and lines. 2. Multifocal airspace opacities throughout the lungs which may reflect pulmonary edema versus multifocal pneumonia . Echo done on 04/08/14 with EF 35-40% with mild to moderate MR and no pulmonary HTN. PROBLEM LIST Active Problems: Acute respiratory failure Crohn's disease Microcytic anemia Sepsis(995.91) Aspiration pneumonia COPD (chronic obstructive pulmonary disease) Embolism and thrombosis of splenic artery Acute gastroenteritis ASSESSMENT & PLAN NEURO: Sedated but follows instructions. CAM assessment daily. Sedation holiday daily. CV: Not in shock. Chronic systolic heart failure with fluid overload. Will start diuresing today with Furo semide 40 mg. Splenic artery thrombosis. Will bridge with Lovenox once with INR that is closer to 2. PULM: Acute respiratory failure from aspiration pneumonia and pulmonary edema. Awaiting trache al CS, empirically on Zosyn IV. Will start diuresis today. Aspiration pneumonia. As above. Will send PCP DFA considering her chronic steroid use. COPD. Not in acute exacerbation. Will continue PRN ALYCE. GI/NUTRITION: Will start nutrition today. Crohn's disease. On hydrocortisone IV for chronic steroid dependence. On Remicaide every 6 weeks. Diarrhea. On contact isolation. May be due to Crohn's disease but with antibiotic therap y, would have to rule out C.diff. Acute Gastroenteritis. May have been viral in nature. Abdominal PE benign. RENAL/LYTES: Renal function and electrolytes within normal. Continue to monitor UO and renal function closely. Avoid nephrotoxins. ID: Aspiration PNA. On Zosyn and Vancomycin IV. Blood and tracheal CS pending. Will send PCP smear considering that she has been on steroids. HEME: Chronic microcytic anemia. Will continue to monitor H/H daily and watch out for acute si gns of bleeding. Likely from anemia of chronic disease. ENDO: SSI for now. Endotool if with BS>180 x2. MUSC/SKIN: No acute lesions. Chronic changes on arms. Early mobilization and PT once able. PROPHYLAXIS: Stress ulcer prophylaxis: H2 jarrod DVT prophylaxis: Therapeutic INR. SCD VAP bundle:chlorhexadine oral care, HOB >30 degrees. Disposition: ICU care as above. Will diurese today and evaluate for readiness for liberatio n from [facility] later tonight. Code Status: Full Code *Please bill 45 minutes of critical care time spent evaluating the patient, reviewing the d hawa and formulating a plan exclusive of all other procedures. Bonnie Greenberg MD 04/13/2014 1:15 PM onversion Trans action, Provider Unknown - 04/13/2014 10:15 AM PST Progress Notes by Osvaldo Allen RRT at 04/13/14 1015 Author: Osvaldo Allen RRT Service: (none) Author Type: Registered Respiratory Therapist Filed: 04/13/14 1038 Date of Service: 04/13/14 1015 Status: Signed Systems Development Manager: Osvaldo Allen RRT (Registered Respiratory Therapist) Tried to wean to PS/CPAP but she is not breathing regularly enough. Placed on PRVC with low RR & automode for now. onver roshan Transaction, Provider Unknown - 04/13/2014 9:57 AM PST Case Management by LEVI Acharya at 04/13/14956 Author: LEVI Acharya Service: (none) Author Type: Radiographic Technologist Filed: 04/13/145 Date of Service: 04/13/14956 Status: Addendum Systems Development Manager: LEVI Acharya (Radiographic Technologist) Related Notes: Original Note by LEVI Acharya (Radiographic Technologist) filed at 04/13/141043 Pt was transferred from [facility]. She is vented. has not called or v isited. I attempted to reach him by home phone ([phone]) however he did not answer. I [facility] stafff has left messages as well. I called the [employer] and requested a drive-by to see if can be reached. [employer] police will call me back after they have tried to make contact with . Addendum: Received t/c from pt's , Kole. He states that the police came to his ho me to request that he call us. He stated that we had been leaving messages on patient's cell phone. His cell number is [phone]. I asked him if he would be visiting the patient to day. He indicated that he was "thinking about it." He asked if pt was lucid and if he coul d talk with her. I informed that pt is on life support and vented. I asked him again if he would be visitng pt today. He stated if things could be dealt with by phone he would prefe r that. He requested that the [facility] call him. Provided Dr. Greenberg with 's c ell number. sounded somewhat upset so i did not pursue a full assessment at this time. Will ob tain when he visits pt or when pt is extubated. onver roshan Transaction, Provider Unknown - 04/13/2014 9:14 AM PST Progress Notes by Jaquelin Cat RN at 04/13/14913 Author: Jaquelin Cat RN Service: (none) Author Type: Registered Nurse Filed: 04/13/1416 Date of Service: 04/13/14913 Status: Signed Systems Development Manager: Jaquelin Cat, RN (Registered Nurse) Received order for PICC line placement. Blood cultures pending at this time. 48 hour will b e 04/14/2014 @ 1810. If blood cultures remain negative at that time, will plan to place line . Per md notes previous blood cultures were positive on 04/10. Thank you. onver roshan Transaction, Provider Unknown - 04/12/2014 8:34 PM PST Progress Notes by Britni Shaffer RPH at 04/12/142033 Author: Britni Shaffer RPH Service: (none) Author Type: Pharmacist Filed: 04/12/142033 Date of Service: 04/12/142033 Status: Signed Systems Development Manager: Britni Shaffer RPH (Pharmacist) Renal Dosing Monitoring: Mackenzie Hartley 58 y.o. female Pharmacy dosing for renal function per Dr. Greenberg SCr 0.96, est. CrCl = 67 ml/min Plan per protocol: Medications dosed appropriately for current renal function. Pharmacy will continue monitoring patient for appropriate dosing per renal function. 04/12/2014 8:34 PM Pharmacist: Birtni Shaffer onver roshan Transaction, Provider Unknown - 04/12/2014 8:33 PM PST Progress Notes by Britni Shaffer RPH at 04/12/142032 Author: Britni Shaffer RPH Service: (none) Author Type: Pharmacist Filed: 04/12/142032 Date of Service: 04/12/142032 Status: Signed Systems Development Manager: Britni Shaffer RPH (Pharmacist) Clinical Pharmacy Note: Initiation of Vancomycin Pharmacy Dosing Mackenzie Hartley 58 y.o. female 1.753 m (5' 9") 78.4 kg (172 lb 13.5 oz) Body mass index is 25.51 kg/(m^2). CREATININE Date Value Range Status 04/12/2014 0.96 0.50 - 1.00 mg/dL Final Testing performed at [facility];[address] [place] [address];[place] [address] Estimated CrCl : CREATININE: 0.96 (04/12/14 1731) Estimated creatinine clearance - 66.8 mL/min Indications: HAP Dose per Protocol: Loading Dose: Vancomycin 1250 mg (16 mg/kg TBW) IV Q12H Vancomycin Trough Due: 04/14 @ 1700 Goal Trough for Vancomycin: 15-20 mcg/mL Pharmacist: Britni Shaffer 04/12/2014 8:32 PM docume nted in this encounter H&P Notes Bonnie Greenberg MD - 04/12/2014 4:55 PM PST H&P by Bonnie Greenberg MD at 04/12/14 9511 Author: Bonnie Greenberg MD Service: Fl[facility] Author Type: Physician Filed: 04/12/14 7110 Date of Service: 04/12/14 6762 Status: Addendum Systems Development Manager: Bonnie Greenberg MD (Physician) Related Notes: Original Note by Bonnie Greenberg MD (Physician) filed at 04/12 4310 [facility] Service: Fl[facility] Admission History & Physical Mackenzie Hartley 58 y.o. Date of Admission: 04/12/2014 Requesting Physician: Dr. Antoinette Hernadez, Gastroenterology and Hospitalist Indication for ICU Admission: severe respiratory distress and hypoxic respiratory failure History Obtained From: chart review CHIEF COMPLAINT: Generalized weakness HISTORY OF PRESENT ILLNESS The patient is a 58 y.o. 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 She underwent imaging of her abdomen which did not reveal any acute process. She was empirically started on broad spectrum antibiotics given her immunosuppressed state. She developed a bilateral lower lobe infiltrate, R>L, which was presumed to be due to aspiration, and in the next days, worsened (was initially on BiPAP) but was intubated on 04/12/13. She was formerly a DNR but she revised her code status. She was transferred to [facility] for further care. She arrived intubated, with SBP in the 120s, and mildly sedated. Her abdomen was soft and had normal tones. She was warm but afebrile. REVIEW OF SYSTEMS Review of systems not obtained due to intubated. PAST MEDICAL HISTORY No past medical history on file. PAST SURGICAL HISTORY No past surgical history on file. ALLERGIES Allergies Allergen Reactions Demerol [Meperidine] Other (See Comments) Unknown Erythromycin Other (See Comments) unknown Levofloxacin Other (See Comments) tendinitis Reglan [Metoclopramide] Other (See Comments) Unknown MEDICATIONS PRIOR TO ADMISSION Prior to Admission medications Not on File FAMILY HISTORY OF SIGNIFICANCE No family history on file. SOCIAL HISTORY History Social History Marital Status: Spouse Name: N/A Number of Children: N/A Years of Education: N/A Occupational History Not on file. Social History Main Topics Smoking status: Not on file Smokeless tobacco: Not on file Alcohol Use: Not on file Drug Use: Not on file Sexual Activity: Not on file Other Topics Concern Not on file Social History Narrative PHYSICAL EXAM VITAL SIGNS Heart Rate: [111] 111 FiO2 : [40 %] 40 % EXAM GEN: sedated, intubated NEURO: PERRLA, EOMI, no facial asymmetry, Cushingoid HEENT: sclerae clear, nonicteric, oral mmm, pink, no exudates , orotracheal tube in place NECK: supple, trachea midline HEART: PMI laterally displaced, tachycardic, S1/S2, no murmur, rub or gallop LUNGS: Equal expansion, no crackles or wheezing ABD: soft, nondistended, nontender to palpation, no masses, no hepatosplenomegaly EXTR: with non pitting pedal edema, clubbing or cyanosis; atrophied calf muscles SKIN: warm, dry, no rash or mottling; no e/o skin breakdown over the occiput, scapulae, elb ows, sacrum or heels; multiple slightly hyperemic patches on both arms. DATA Outside labs reviewed. Awaiting labs done here in [facility]. Na 139 K 4.4 Cl 105 BUN 16 Creatinine 0.86 Magnesium 1.6 Albumin 2.2 AST 28 ALT 8 WBC 15.8 Hgb 12.1/Hct 38.9 Micro gram positive cocci in blood CS on 04/09/14, grew staphylococcus capitis. IMAGING No imaging to review. Will obtain old imaging done in [facility] Echo done on 04/08/14 with EF 35-40%, mild to moderate MR. No pulmonary HTN. PROBLEM LIST Active Problems: Acute respiratory failure Crohn's disease Microcytic anemia Sepsis(995.91) Aspiration pneumonia COPD (chronic obstructive pulmonary disease) Embolism and thrombosis of splenic artery Acute gastroenteritis ASSESSMENT & PLAN NEURO: Sedated currently. Has baseline anxiety. CAM assessment daily. Watch out for delirium. T reat pain adequately. CV: Not in shock and is holding blood pressure without pressors. Splenic artery stenosis. Chronically anticoagulated. Will bridge on lovenox while acutel y ill. Left ventricular heart failure, not in acute exacerbation. EF noted on an echo done on to be depressed at 35-40%. Mild to moderate MR. Will watch out for acute pulmonary edema. PULM: Acute respiratory failure. Likely from aspiration pneumonitis/pneumonia. Tracheal CS sen t. Will continue Zosyn and Vancomycin for now. On ventilatory support. Will assess daily for liberation from MV. Aspiration pneumonia/pneumonitis. Started on empiric abx. Awaiting CS data. COPD. Not in acute exacerbation. Will continue PRN ALYCE. GI/NUTRITION: NPO for now. Crohn's disease. Started stress dose of steroids given her chronic dependence on this. R eceives Remicaide every 6 weeks. Diarrhea. C.diff TAT sent. May still be related to underlying Crohn's. Acute gastroenteritis. May have been viral in nature at the first onset. Will continue t o watch for signs of worsening abdominal status. RENAL/LYTES: Normal renal function and electrolytes. Continue to monitor closely. ID: Aspiration PNA. On Zosyn and Vancomycin. Blood and tracheal CS re-sent today. Acute gastroenteritis. On abx which will target enteric organisms. Will hold off on givi ng anti-fungals. HEME: Chronic microcytic anemia. Received 2 u PRBC while in the outside hospital. Will continu e to monitor H/H daily and watch out for acute bleeding. This anemia is thought to be relate d to her chronic disease. ENDO: SSI as needed MUSC/SKIN: No acute lesions. Chronic appearing skin changes on both arms. Will need PT/OT once able. PROPHYLAXIS: Stress ulcer prophylaxis: H2 jarrod DVT prophylaxis: Lovenox treatment dose VAP bundle: chlorhexadine oral care, HOB >30 degrees. Disposition: ICU care as above. Code Status: Full Code Primary Care Physician: Neel Fernandes *Please bill 60 minutes of critical care time spent evaluating the patient, reviewing the d hawa and formulating a plan exclusive of all other procedures. Bonnie Greenberg MD 04/12/2014 5:53 PM documented in th is encounter Procedure Notes Carla Kaur ARNP - 04/22/2014 2:36 PM PSTFormatting of this note might be diff erent from the original. Procedures by JENARO Perez at 04/22/14 1436 Author: JENARO Perez Service: Flavor [facility] Author Type: Flavor Maker Filed: 04/22/14 1439 Date of Service: 04/22/14 1436 Status: Signed Systems Development Manager: JENARO Perez (Nurse Practitioner) Procedure Orders: 1. Insert arterial line [[id number]] ordered by JENARO Perez at 04/22/14 1436 Post-procedure Diagnoses: 1. Acute gastroenteritis [558.9] 2. Acute respiratory failure (HCC) [518.81] 3. Acute systolic heart failure (HCC) [428.21] 4. Aspiration pneumonia ([facility]) [507.0] 5. COPD (chronic obstructive pulmonary disease) (HCC) [496] 6. 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 Microcytic anemia [280.9] 9. Narcotic dependence (HCC) [304.90] 10. PAF (paroxysmal atrial fibrillation) ([facility]) [427.31] 11. Sepsis(995.91) [995.91] [facility] Service: Flavor Maker BEDSIDE PROCEDURE NOTE Insert Arterial Line Date/Time: 04/22/2014 2:36 PM Performed by: CARLA KAUR Authorized by: CARLA KAUR Consent: The procedure was performed in an emergent situation. Patient identity confirmed: arm band Time out: Immediately prior to procedure a "time out" was called to verify the correct starr ent, procedure, equipment, academic support coordinator and site/side marked as required. Indications: multiple ABGs, respiratory failure and hemodynamic monitoring Location: right femoral Anesthesia: local infiltration Local anesthetic: lidocaine 1% without epinephrine Patient sedated: yes Preparation: skin prepped with ChloraPrep Skin prep agent dried: skin prep agent completely dried prior to procedure Sterile barriers: all five maximum sterile barriers used - cap, mask, sterile gown, sterile gloves, and large sterile sheet Hand hygiene: hand hygiene performed prior to central venous catheter insertion Needle gauge: 20 Seldinger technique: Seldinger technique used Number of attempts: 1 Post-procedure: line sutured and dressing applied Post-procedure CMS: unchanged JENARO PEREZ 04/22/2014 Rahul Rivera ARNP - 04/22/2014 2:31 PM PSTFormatting of this note might be different from t velvet original. Procedures by JENARO Perez at 04/22/14 1431 Author: JENARO Perez Service: Flavor Maker Author Type: Flavor Maker Filed: 04/22/14 1436 Date of Service: 04/22/141430 Status: Signed Systems Development Manager: JENARO Perez (Nurse Practitioner) Procedure Orders: 1. Central line [[id number]] ordered by JENARO Perez at 04/22/14 1431 Post-procedure Diagnoses: 1. Acute gastroenteritis [558.9] 2. Acute respiratory failure (HCC) [518.81] 3. Acute systolic heart failure (HCC) [428.21] 4. Aspiration pneumonia ([facility]) [507.0] 5. COPD (chronic obstructive pulmonary disease) (HCC) [496] 6. 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 Microcytic anemia [280.9] 9. Narcotic dependence (HCC) [304.90] 10. PAF (paroxysmal atrial fibrillation) ([facility]) [427.31] 11. Sepsis(995.91) [995.91] [facility] Service: Flavor Maker BEDSIDE PROCEDURE NOTE Central Line Date/Time: 04/22/2014 2:32 PM Performed by: CARLA KAUR Authorized by: CARLA KAUR Consent: The procedure was performed in an emergent situation. Patient identity confirmed: arm band Time out: Immediately prior to procedure a "time out" was called to verify the correct starr ent, procedure, equipment, academic support coordinator and site/side marked as required. Indications: vascular access and central pressure monitoring Patient sedated: no Preparation: skin prepped with ChloraPrep Skin prep agent dried: skin prep agent completely dried prior to procedure Sterile barriers: all five maximum sterile barriers used - cap, mask, sterile gown, sterile gloves, and large sterile sheet Hand hygiene: hand hygiene performed prior to central venous catheter insertion Location details: right internal jugular Patient position: flat Catheter type: Cordis Ultrasound guidance: yes Number of attempts: 1 Successful placement: yes Post-procedure: line sutured and dressing applied Assessment: blood return through all ports, placement verified by x-ray and no pneumothora x on x-ray Patient tolerance: Patient tolerated the procedure well with no immediate complications Comments: biopatch applied JENARO PEREZ 04/22/2014 Lidia Estrella - 04/21/2014 4:49 PM PST Procedures by Bony Petty MD at 04/21/14 1695 Author: Bony Petty MD Service: Gastroenterology Author Type: Physician Filed: 04/23/14 1309 Date of Service: 04/21/149 Status: Signed Systems Development Manager: Bony Petty MD (Physician) Related Notes: Original Note by Bony Petty MD (Physician) filed at 04/21/14 2231 Procedure Orders: 1. Case Request Operating Room: ESOPHAGOGASTRODUODENOSCOPY [[id number]] ordered by Bony steven MD at 04/21/14 1528 Pre-procedure Diagnoses: 1. Odynophagia [787.20] 2. Weight loss [783.21] 3. Aspiration pneumonia (HCC) [507.0] Post-procedure Diagnoses: 1. Benign esophageal stricture [530.3] 2. Reflux esophagitis [530.11] 3. Gastritis [535.50] Procedures: 1. UPR GI NDSC DILAT GSTR OUTLET FOR OBSTRCJ [11144 (CPT)] DATE OF SERVICE April 21, 2014 PROCEDURE Esophagogastroduodenoscopy with Savary dilation. ENDOSCOPIST Bony Petty MD HISTORY AND INDICATIONS This EGD was performed for further evaluation of odynophagia with weight loss and aspiratio n pneumonia in the setting of Crohn disease. INSTRUMENT Olympus video GIF scope. MEDICATIONS Propofol as per ICU protocol and the patient was intubated. Informed consent was obtained from the patient's after explaining indications and p ossible complications, including but not excluding bleeding, perforation, infection, and kerry ction to medication. Procedure was done at the bedside. DESCRIPTION OF PROCEDURE The patient was sedated and OG tube was removed and then GIF scope was inserted into the or al cavity and under direct visualization, advanced to the third portion of the duodenum. FINDINGS In the esophagus, there was evidence of peptic stricture at the EG junction level with some mild erosive reflux esophagitis. The esophagus was dilated using Savary dilator over the gu idewire. Initially, 18 mm was used and then I was able to see an opening at the upper esopha rere sphincter and EG junction level and this was followed by 22 mm Savary dilation which suzette wed good opening at the upper esophageal sphincter level as well as EG junction level. Good hemostasis was seen. No esophageal candidiasis was seen. In the stomach there were no thicke amber folds but diffuse scattered erythema was noted. No ulcerations were seen. Retroflexed vi ew of cardia and fundus appeared unremarkable. Pylorus appeared normal and patent. The duodenal bulb through the third portion of the duodenum were without any ulcerations, e rosions, or mucosal abnormalities. IMPRESSION 1. Benign peptic esophageal stricture at the upper esophagus sphincter level and at EG junc tion level. 2. Erosive reflux esophagitis. 3. Mild gastritis. 4. Normal duodenum. RECOMMENDATIONS IV Protonix and once the patient is extubated and ready to eat, she should be on p.o. myles n-pump inhibitor for extended time. In the meantime, any aspirin or NSAIDs need to be avoide d, at least for the next 3 days. annet Shields MD - 5:18 AM PST Procedures by Jannet Shields MD at 04/16/14517 Author: Jannet Shields MD Service: Flavor Maker Author Type: Flavor Maker Filed: 04/16/14517 Date of Service: 04/16/14517 Status: Signed Systems Development Manager: Jannet Shields MD (Physician) [facility] Service: Flavor Maker Procedure: Oral Trachel Intubation Indication: Respiratory Failure Consent: performed on an emergent basis Anesthesia: The patient was medicated with etomidate .3mg/kg IV and rocuronium .6mg/kg IV. Procedure: The glide scope was used with a number 4 blade and a #8 ET tube. The patients airway was first evaluated and found to be acceptable. The mouth opened widely and omitted 3 finger breaths between the maxilla and mandible. There were 3 finger breaths distance be tween the thyroid cartilage and the mental aspect of the mandible. The patient was bagged w ith 100% oxygen without difficulty. The medications were given and then the glide scope julia de was introduced and the ET tube was passed without difficulty and secured at 23 cm at the lip. Good C02 return was noted on the C02 detector and the patient had good bilateral breat h sounds. Vital signs and oxygen saturations remained acceptable throughout the procedure. There were no complications. Chest Xray: Showed good position of the tube. Complications: None [facility] Shields MD, [facility] document[facility] d in this encounter Consult Notes Bogdan Moser DO - 04/23/2014 12:58 AM PST Consults by Bogdan Moser DO at 04/23/1457 Author: Bogdan Moser DO Service: General Surgery Author Type: Physician Filed: 04/23/14 0109 Date of Service: 04/23/1457 Status: Signed Systems Development Manager: Bogdan Moser DO (Physician) Consult Orders: 1. Inpatient consult to Trauma Surgery [[id number]] ordered by Trice Fagan MD at 04/11 06/23 0043 Date of Admission: 04/12/2014 History Obtained From: patient Reason for consultation: Hemorrhagic shock Referring provider: Dr. Gracia MD CHIEF COMPLAINT: Hemorrhagic shock HISTORY OF PRESENT ILLNESS The patient is a 58 y.o. female who presents with hemorrhagic shock to the ICU She was recently treated for a splenic artery thrombosis with IV heparin, and developed pro found shock. Pressors were started, and during CVC placement, her venous blood was extremely thin, even more than expected with heparinized blood (per ICU). She was treated with 4 units of blood this afternoon, and bedside ultrasound revealed a lar ge LEFT rectus hematoma measuring [id number]. This was presumed to be the source of blood lo ss. I was called by the night intensive care physician, Dr. Gracia MD, who informed me th at the patient continued to suffer profound shock and dropping Hg despite adequate resuscita tion. CT abd was done. Large retroperitoneal hematoma noted (no contrast given so no blush was seen). The patient clearly needs emergent surgical attention, and no IR is available today. REVIEW OF SYSTEMS ROS obtained from chart. Review of Systems - Allergy and Immunology ROS: negative Hematological and Lymphatic ROS: negative Endocrine ROS: negative Breast ROS: negative for breast lumps negative Respiratory ROS: negative Cardiovascular ROS: negative Gastrointestinal ROS: negative Genito-Urinary ROS: negative Musculoskeletal ROS: negative Neurological ROS: negative Dermatological ROS: negative Past Medical History Diagnosis Date COPD (chronic [...] Procedure: ESOPHAGOGASTRODUODENOSCOPY; Surgeon: Bony Petty MD; Location: [facility] BEDSIDE PROCEDURE; Service: Gastroenterology; Laterality: N/A; Allergies Allergen Reactions Demerol [Meperidine] Other (See Comments) Unknown Erythromycin Other (See Comments) unknown Levofloxacin Other (See Comments) tendinitis Reglan [Metoclopramide] Agitation Unknown Penicillins Nausea and Vomiting Prescriptions prior to admission Medication Sig Dispense Refill omeprazole (PRILOSEC) 40 MG capsule Take 40 mg by mouth 2 (two) times daily. Scheduled Medications albuterol 6 puff Inhalation Q4H fluconazole (DIFLUCAN) IV 200 mg Intravenous Q24H hydrocortisone sodium succinate PF 50 mg Intravenous Q12H insulin aspart 0-10 Units Subcutaneous Q6H ipratropium 6 puff Inhalation Q4H levothyroxine 26 mcg Intravenous Daily pantoprazole 40 mg Intravenous QAM AC protamine IVPB 50 mg Intravenous Once sodium chloride 0.9 % 10 mL Intravenous Q12H GISSELL Continuous Infusions dexmedetomidine in NS 0.6 mcg/kg/hr (04/22/141945) dextrose dextrose 5 % and 0.9 % NaCl fentaNYL in NS 5 mcg/mL 100 mcg/hr (04/22/141946) norepinephrine in D5W 64 mcg/mL 10 mcg/min (04/22/141922) sodium chloride (IV) 15 mL/hr at 04/22/14 1700 PRN Medications acetaminophen OR acetaminophen, dextrose, dextrose, dextrose, glucagon, glucagon, lip m oisturizer, magnesium sulfate OR magnesium sulfate OR magnesium sulfate OR magne sium sulfate, nystatin, nystatin, ondansetron OR ondansetron, pancrelipase (Mjq-Svha-Tuo l) 10,000 units, petrolatum, phosphorus OR sodium phosphate IVPB 15 mmol OR sodium p hosphate IVPB 30 mmol potassium chloride OR potassium chloride OR potassium chloride, sodium bicarbonate, sodium chloride 0.9 % History reviewed. No pertinent family history. History Social History Marital Status: Spouse Name: [...] History Narrative PHYSICAL EXAM Vital Signs: BP 116/59 | Pulse 84 | Temp(Src) 100.8 F (38.2 C) (Axillary) | Resp 31 | Ht 1.753 m (5' 9") | Wt 72.2 kg (159 lb 2.8 oz) | BMI 23.49 kg/m2 | SpO2 80% | ? No Patient Vitals for the past 24 hrs: BP Temp Temp src Pulse Resp SpO2 04/23/14 0049 116/59 mmHg 100.8 F (38.2 C) - 84 31 - 04/23/14 0042 115/59 mmHg 100.8 F (38.2 C) - 88 35 - 04/23/14 0030 105/50 mmHg 100.8 F (38.2 C) - 88 25 - 04/23/14 0000 90/52 mmHg - - 109 - 80 % 04/22/142351 94/43 mmHg 99.2 F (37.3 C) - 114 24 100 % 04/22/142350 - - - 114 26 97 % 04/22/145 - - - 92 - 100 % 04/22/14 2300 99/52 mmHg - - 88 - 99 % 04/22/142244 - - - 101 - 100 % 04/22/142229 89/49 mmHg 99.1 F (37.3 C) - 100 25 100 % 04/22/142214 - - - 101 - 100 % 04/22/142199 99/53 mmHg - - 114 - 100 % 04/22/142144 - - - 92 - 100 % 04/22/142129 78/41 mmHg - - 101 - 100 % 04/22/142114 - - - 108 - 100 % 04/22/142099 90/50 mmHg - - 106 - 100 % 04/22/142049 80/42 mmHg - - 106 - 100 % 04/22/142044 - - - 107 - 100 % 04/22/142039 80/41 mmHg - - 107 - 100 % 04/22/142034 83/45 mmHg - - 111 - 100 % 04/22/142029 74/39 mmHg - - 114 - 100 % 04/22/142024 - - - 124 - 100 % 04/22/142019 89/47 mmHg - - 121 - 100 % 04/22/142014 - - - 119 - 100 % 04/22/142009 88/50 mmHg - - 117 - 100 % 04/22/142004 - - - 114 - 100 % 04/22/141999 89/51 mmHg 101.3 F (38.5 C) - 109 - 100 % 04/22/141944 - - - 107 - 99 % 04/22/14 1930 125/58 mmHg - - 103 - 97 % 04/22/14 1924 - - - 101 23 98 % 04/22/14 1900 90/55 mmHg - - 114 - 98 % 04/22/14 1845 108/59 mmHg - - 95 - 97 % 04/22/14 1830 104/58 mmHg - - 112 - 96 % 04/22/14 1815 120/63 mmHg - - 113 - 96 % 04/22/14 1800 121/59 mmHg - - 116 - 97 % 04/22/14 1745 126/56 mmHg - - 120 - 94 % 04/22/14 1730 129/63 mmHg - - 119 - 97 % 04/22/14 1715 115/59 mmHg - - 103 - 98 % 04/22/14 1705 109/55 mmHg 100 F (37.8 C) - 109 - 98 % 04/22/14 1703 109/55 mmHg - - 108 - 98 % 04/22/14 1700 109/55 mmHg - - 113 - 100 % 04/22/14 1653 138/78 mmHg 100.9 F (38.3 C) - 105 20 99 % 04/22/14 1645 100/51 mmHg - - 97 - 98 % 04/22/14 1640 100/51 mmHg 99.4 F (37.4 C) - 97 21 98 % 04/22/14 1630 108/53 mmHg - - 100 - 98 % 04/22/14 1615 - - - 101 - 98 % 04/22/14 1611 126/59 mmHg 99.5 F (37.5 C) - 105 22 99 % 04/22/14 1604 129/60 mmHg 100.4 F (38 C) Axillary 111 27 97 % 04/22/14 1600 103/50 mmHg - - 111 - 97 % 04/22/14 1559 124/69 mmHg 99 F (37.2 C) - 111 24 97 % 04/22/14 1557 117/56 mmHg - - 111 - 97 % 04/22/14 1545 109/56 mmHg - - 112 - 97 % 04/22/14 1530 114/56 mmHg - - 113 - 97 % 04/22/14 1515 109/53 mmHg - - 101 - 98 % 04/22/14 1500 98/50 mmHg - - 97 - 98 % 04/22/14 1451 - - - 97 29 97 % 04/22/14 1445 104/56 mmHg - - 98 - 98 % 04/22/14 1434 109/56 mmHg 98.6 F (37 C) - 100 33 100 % 04/22/14 1430 - - - 101 - 100 % 04/22/14 1425 128/57 mmHg 98.6 F (37 C) - 100 34 - 04/22/14 1415 92/45 mmHg - - 103 - 100 % 04/22/14 1414 92/45 mmHg 98.8 F (37.1 C) - 105 28 - 04/22/14 1407 113/41 mmHg 98.8 F (37.1 C) - 99 25 - 04/22/14 1400 82/39 mmHg - - 116 - 100 % 04/22/14 1358 82/39 mmHg 98.9 F (37.2 C) - 112 25 - 04/22/14 1345 65/31 mmHg - - 118 - 78 % 04/22/14 1330 66/31 mmHg - - 122 - 76 % 04/22/14 1315 57/32 mmHg - - 122 - 73 % 04/22/14 1300 80/37 mmHg - - 132 - 100 % 04/22/14 1245 82/42 mmHg - - 139 - 100 % 04/22/14 1230 104/46 mmHg - - 143 - 100 % 04/22/14 1215 97/51 mmHg - - 139 - 100 % 04/22/14 1200 101/51 mmHg 97.4 F (36.3 C) Axillary 147 26 100 % 04/22/14 1145 93/44 mmHg - - 153 - 100 % 04/22/14 1130 94/48 mmHg - - 150 29 100 % 04/22/14 1115 92/46 mmHg - - 145 - 100 % 04/22/14 1108 - - - 144 28 100 % 04/22/14 1100 102/49 mmHg - - 144 - 100 % 04/22/14 1045 82/56 mmHg - - 140 - 96 % 04/22/14 1030 91/50 mmHg - - 123 - 92 % 04/22/14 1015 94/56 mmHg - - 135 - 99 % 04/22/14 1000 131/75 mmHg - - 130 - 99 % 04/22/14 0945 83/53 mmHg - - 130 - 97 % 04/22/14 0930 80/53 mmHg - - 128 - 94 % 04/22/14 0915 84/50 mmHg - - 123 - 99 % 04/22/14 0900 79/51 mmHg - - 121 - 99 % 04/22/14 0845 71/33 mmHg - - 118 - 99 % 04/22/14 0830 125/58 mmHg - - 120 - 99 % 04/22/14 0815 62/45 mmHg - - 86 - 99 % 04/22/14 0800 72/50 mmHg 97.8 F (36.6 C) Axillary 82 16 98 % 04/22/14 0745 79/53 mmHg - - 78 - 98 % 04/22/14 0742 - - - 78 18 98 % 04/22/14 0740 - - - 78 19 97 % 04/22/14 0730 76/43 mmHg - - 76 - 97 % 04/22/14 0715 77/45 mmHg - - 76 - 97 % 04/22/14 0700 93/50 mmHg - - 96 - 97 % 04/22/14 0400 - 98.2 F (36.8 C) Oral - 16 - 04/22/14 0315 - - - 100 - 98 % 04/22/14 0300 129/67 mmHg - - 94 - 99 % 04/22/14 0258 116/62 mmHg - - 98 - 99 % 04/22/14 0257 - - - 100 - 99 % 04/22/14 0256 - - - 100 - 98 % 04/22/14 0255 104/57 mmHg - - 100 - 98 % 04/22/14 0245 99/55 mmHg - - 101 - 99 % 04/22/14 0230 97/53 mmHg - - 79 - 99 % 04/22/14 0215 99/51 mmHg - - 82 - 100 % 04/22/14 0212 96/53 mmHg - - 80 - 99 % 04/22/14 0200 97/55 mmHg - - 81 - 99 % 04/22/14 0145 95/50 mmHg - - 82 - 99 % 04/22/14 0130 98/55 mmHg - - 83 - 99 % 04/22/14 0115 97/54 mmHg - - 85 - 99 % 04/22/14 0100 100/53 mmHg - - 85 - 99 % Constitutional: Intubated, sedated HEENT: Normocephalic, without obvious abnormality, atraumatic Pupils equal, conjunctiva/corneas clear Normal external ear canals, both ears Nares normal Lips, mucosa, and tongue normal; teeth and gums normal Symmetrical, trachea midline Respiratory: Respirations unlabored Cardiovascular: Regular rate, no pre-tibial edema Abdomen: Genitourinary: Distended No rebound, no rigidity Deferred Musculoskeletal: Extremities normal, atraumatic, normal AROM bilateral upper and lower extremeties Skin: Skin color, texture, turgor normal, no rashes or lesions Lymph nodes: Cervical nodes normal, no clavicular adenopathy Neurologic: Psychiatric: Intubated " DATA CBC: Lab Results Component Value Date WBC 30.8* 04/22/2014 RBC 2.58* 04/22/2014 HGB 7.8* 04/23/2014 HGB 7.3* 04/22/2014 HCT 23* 04/23/2014 HCT 22.1* 04/22/2014 MCV 85.8 04/22/2014 MCH 28.5 04/22/2014 MCHC 33.2 04/22/2014 RDW 43.3 04/22/2014 PLT 197 04/22/2014 MPV 7.4 04/22/2014 DIFFTYPE MANUAL 04/22/2014 CMP: Lab Results Component Value Date NA 151* 04/22/2014 K 4.0 04/22/2014 CL 112* 04/22/2014 CO2 30 04/22/2014 ANIONGAP 12 04/22/2014 GLUF 67 04/22/2014 BUN 37* 04/22/2014 CREATININE 1.34* 04/22/2014 BCR 28 04/22/2014 CA 7.9* 04/22/2014 PROT 5.1* 04/22/2014 ALB 2.4* 04/22/2014 GLOB 3.7 04/12/2014 BILITOT 0.5 04/22/2014 ALP 131* 04/22/2014 AST 20 04/22/2014 ALT 11 04/22/2014 EGFR 43* 04/22/2014 Hepatic Function Panel: Lab Results Component Value Date PROT 5.1* 04/22/2014 ALB 2.4* 04/22/2014 BILITOT 0.5 04/22/2014 BILIDIR 0.1 04/22/2014 ALP 131* 04/22/2014 AST 20 04/22/2014 ALT 11 04/22/2014 RAD: Reviewed. Extremely large retroperitoneal hematoma on L side. PROBLEM LIST Principal Problem: Intraperitoneal hemorrhage 20 cm x 12 cm x 11 cm 04/22/2014 Active Problems: Acute respiratory failure Crohn's disease Microcytic anemia Aspiration pneumonia COPD (chronic obstructive pulmonary disease) Embolism and thrombosis of splenic artery Acute gastroenteritis Acute systolic heart failure LVEF 30% Narcotic dependence PAF (paroxysmal atrial fibrillation) Stricture esophagus dilated with bougue 20 niuean 04/21/2014 ASSESSMENT & PLAN Hemorrhagic shock. Likely source is splenic artery from either ruptured aneurysm vs spontaneous splenic ruptur e. Retroperitoneal vs intraperitoneal blood seen on CT lends more to splenic artery or vein bl eeding rather than actual parenchyma. At any rate, the patient is obviously in extremis, and conservative management has failed. There is no available IR to attempt endovascular repair, and the patient is not stable for transfer. Emergent surgery is planned. She will be taken AIDA for exploration. I have personally reviewed her radiographic images, and concur with the radiologist interpr etation. I have reviewed her chart and pertinent laboratory values. I have discussed the case with Dr. Gracia MD, and explained my recommendations. Thank you for allowing me to assist in the care of this patient. Code Status: Full Code Primary Care Physician: Neel Fernandes onversion Transa ction, Provider Unknown - 04/13/2014 12:15 PM PST Consult* by Jacoby Muñoz RD at 04/13/14 7318 Author: Jacoby Muñoz RD Service: (none) Author Type: Registered Dietitian Filed: 04/13/14 9606 Date of Service: 04/13/145 Status: Signed Systems Development Manager: Jacoby Muñoz RD (Registered Dietitian) Nutrition Assessment and Recommendations Routine ICU consult received. Assessment: Pt admitted for acute respiratory failure, sepsis, acute gastroenteritis, has hx of crohn's , COPD, chronic diarrhea. Pt transferred from [facility] was admitted there in 03/27, note d to have nausea, emesis, abdominal discomfort. BMI: 25.5 indicates pt is overweight, is 119 % IBW. Wt history: Unable to obtain. Nutritionally pertinent labs: K elevated 5.4 and will be rechecked per RN. BUN, Cr are wnl. Nutrition-focused physical findings: Intubated, sedated on fentanyl, skin is intact. Food and nutrition-related hx: Unable to obtain, suspect pt was eating poorly prior to admi t as pt transferred from [facility], recent nausea, emesis, abdominal discomfort. Current intake: NPO order. NS running at 30 ml/hr. Stools being checked for C diff, diarrhea likely related to crohn's. Currently on contact i solation. Estimated needs: Kcal: 1960 - 2352 (25 - 30 kcal/kg/admit wt). Protein: 94 - 118 g (1.2 - 1.5 g/kg/admit wt). Nutrition Diagnosis: Inadequate intake related to sedation induced inability to eat as evidence by NPO order. Intervention: If pt remains intubated consider Enteral feeds. Recommend Vital 1.5 at goal rate of 70 ml/h r assuming 20 hr delivery to provide 2100 kcal (26.7 kcal/kg), 94 g protein (1.2 g/kg), 1400 ml TV, 1069 ml free water. Recommendations: Once pt is extubated advance diet as tolerated when indicated to low fiber/residue, supplem ents can be provided if needed. If pt remains intubated, consider Vital 1.5 at goal rate of 70 ml/hr via OG tube. Monitoring: Will follow up in 3 days or as indicated. Jacoby Muñoz RD 04/13/14. docume nted in this encounter Miscellaneous Notes Plan of Care - Conversion Transaction, Provider Unknown - 04/22/2014 1:53 AM PST Plan of Care by Nahun Puckett RN at 04/22/14152 Author: Nahun Puckett RN Service: (none) Author Type: Registered Nurse Filed: 04/22/14152 Date of Service: 04/22/14152 Status: Signed Systems Development Manager: Nahun Puckett RN (Registered Nurse) Problem: Pain Goal: Patient s pain/discomfort is manageable Assess and monitor patient s pain using appropriate pain scale. Collaborate with interdis ciplinary team and initiate plan and interventions as ordered. Re-assess patient s pain le sheri approximately 1-2 hours after pain management intervention. Premedicate as needed. Outcome: Progressing Pt resting comfortably at this time. No signs or symptoms of acute distress or discomfort n oted. Comfort measures provided. lan o f Care - Conversion Transaction, Provider Unknown - 04/21/2014 2:50 AM PSTFormatting of thi s note might be different from the original. Plan of Care by Nahun Puckett RN at 04/21/14249 Author: Nahun Puckett RN Service: (none) Author Type: Registered Nurse Filed: 04/21/14249 Date of Service: 04/21/14249 Status: Signed Systems Development Manager: Nahun Puckett RN (Registered Nurse) Problem: Pain Goal: Patient s pain/discomfort is manageable Assess and monitor patient s pain using appropriate pain scale. Collaborate with interdis ciplinary team and initiate plan and interventions as ordered. Re-assess patient s pain le sheri approximately 1-2 hours after pain management intervention. Premedicate as needed. Outcome: Progressing Comfort measures provided. Pain reassessed approximately 1-2 hours after pain management i nterventions. Pt currently resting quietly. No signs of discomfort or distress noted. lan o f Jerald - Trice Fagan - 04/20/2014 8:15 PM PSTFormatting of this note might be d ifferent from the original. Plan of Care by Trice Fagan MD at 04/20/142014 Author: Trice Fagan MD Service: Flavor Maker Author Type: Flavor Maker Filed: 04/20/142033 Date of Service: 04/20/142014 Status: Addendum Systems Development Manager: Trice Fagan MD (Physician) Related Notes: Original Note by Trice Fagan MD (Physician) filed at 04/20/142016 Results for MACKENZIE HARTLEY ( ) as of 04/20/2014 20:13 Ref. Range 04/20/2014 03:11 TSH Latest Range: 0.45-5.10 uIU/mL 0.39 (L) FREE T4 Latest Range: 0.7-1.5 ng/dL 0.6 (L) HEMOGLOBIN A1C Latest Range: 4.0-6.0 % 5.4 Abnormal thyroid Labs could be abnormal secondary to illness but in light of pt's weakness and chronic issues concern that she could be chronically hypothriod from history- started h er on 25 mcg of levothyroxine lan of [facility] - Trice Fagan Yasmin - 04/19/2014 8:18 PM PSTFormatting of this note might be diff erent from the original. Plan of Care by Trice Fagan MD at 04/19/142017 Author: Trice Fagan MD Service: Flavor Maker Author Type: Flavor Maker Filed: 04/19/142021 Date of Service: 04/19/142017 Status: Signed Systems Development Manager: Trice Fagan MD (Physician) Was called into meeting with Dr. Chavez. i spoke with proxy pt's and with 2 of her da samirahter's. i asked what he felt was the quality of pt's life at home. He expressed th at pt does have many medical issues and deals with pain but we discussed and he clarified to continue with full treatment. Daughter also determined that they wanted to continue with fu ll treatment. Diagnosis and treatment options were discussed including but not limited to a stepwise discussion of diagnosis.plan and results. Questions ansered. Called away for other acute pt care issue. Cc time 40 min non procedural time lan of C are - Conversion Transaction, Provider Unknown - 04/19/2014 10:47 AM PSTFormatting of this n ote might be different from the original. Plan of Care by Mary Garrett RN at 04/19/14 1047 Author: Mary Garrett RN Service: (none) Author Type: Registered Nurse Filed: 04/19/14 1048 Date of Service: 04/19/14 1047 Status: Signed Systems Development Manager: Mary Garrett RN (Registered Nurse) Daily care needs are met Progressing lan o f Care - Conversion Transaction, Provider Unknown - 04/19/2014 10:46 AM PSTFormatting of thi s note might be different from the original. Plan of Care by Mary Garrett RN at 04/19/14 1046 Author: Mary Garrett RN Service: (none) Author Type: Registered Nurse Filed: 04/19/14 1047 Date of Service: 04/19/14 104 Status: Signed Systems Development Manager: Mary Garrett RN (Registered Nurse) Daily care needs are met Progressing Enteral feeds are at goal rate lan o f Jerald - Alexandro Stanley MD - 04/16/2014 3:45 PM PSTFormatting of this note might be diffe rent from the original. Plan of Care by Alexandro Stanley MD at 04/16/14 1545 Author: Alexandro Stanley MD Service: (none) Author Type: Flavor Maker Filed: 04/16/14 1549 Date of Service: 04/16/14 154 Status: Signed Systems Development Manager: Alexandro Stanley MD (Physician) D/w with tuan and melecio mir. 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 He understands and says he was always prepared for the worse, he was surprised that she [place] her code status to full code in the [facility]. We planned to give her another 24-48 hrs and assess her progress; we talked about comfort c are if she does not improve, he will be talking to his kids meanwhile. lan of Care - Conve rsion Transaction, Provider Unknown - 04/14/2014 7:02 PM PSTFormatting of this note might b e different from the original. Plan of Care by Abhi Matute RN at 04/14/141901 Author: Abhi Matute RN Service: (none) Author Type: Registered Nurse Filed: 04/14/141901 Date of Service: 04/14/141901 Status: Signed Systems Development Manager: Abhi Matute RN (Registered Nurse) Problem: Transfers Goal: LTG - Patient will transfer from one surface to another Outcome: Progressing Worked with PT today, able to stand briefly with max assist docume nted in this encounter Plan of Treatment Not on filedocumented as of this encounter Procedures + +--------+ + + + | Procedure Name | Priori | Date/Time | Associated Diagnosis | Comments | | | ty | | | | + +--------+ + + + | TISSUE REQUEST FOR | Routin | 04/24/2014 | | Results for this | | PATHOLOGY (NON-ORD) | e | 12:00 AM | | procedure are in the | | | | PST | | results section. | + +--------+ + + + | POC GLUCOSE | Routin | 04/23/2014 | | Results for this | | | e | 7:51 AM | | procedure are in the | | | | PST | | results section. | + +--------+ + + + | EXTERNAL LAB: CBC | Routin | 04/23/2014 | | Results for this | | | e | 6:58 AM | | procedure are in the | | | | PST | | results section. | + +--------+ + + + | XR CHEST 1 VIEW | Routin | 04/23/2014 | | Results for this | | | e | 5:51 AM | | procedure are in the | | | | PST | | results section. | + +--------+ + + + | POC GLUCOSE | Routin | 04/23/2014 | | Results for this | | | e | 4:15 AM | | procedure are in the | | | | PST | | results section. | + +--------+ + + + | LACTIC ACID | Routin | 04/23/2014 | | Results for this | | | e | 3:56 AM | | procedure are in the | | | | PST | | results section. | + +--------+ + + + | AMMONIA | Routin | 04/23/2014 | | Results for this | | | e | 3:56 AM | | procedure are in the | | | | PST | | results section. | + +--------+ + + + | EXTERNAL LAB: CBC | Routin | 04/23/2014 | | Results for this | | | e | 3:55 AM | | procedure are in the | | | | PST | | results section. | + +--------+ + + + | PROCALCITONIN, SERUM | Routin | 04/23/2014 | | Results for this | | | e | 3:55 AM | | procedure are in the | | | | PST | | results section. | + +--------+ + + + | PTT | Routin | 04/23/2014 | | Results for this | | | e | 3:55 AM | | procedure are in the | | | | PST | | results section. | + +--------+ + + + | PROTIME INR | Routin | 04/23/2014 | | Results for this | | | e | 3:55 AM | | procedure are in the | | | | PST | | results section. | + +--------+ + + + | FIBRINOGEN | Routin | 04/23/2014 | | Results for this | | | e | 3:55 AM | | procedure are in the | | | | PST | | results section. | + +--------+ + + + | PHOSPHORUS | Routin | 04/23/2014 | | Results for this | | | e | 3:55 AM | | procedure are in the | | | | PST | | results section. | + +--------+ + + + | B TYPE NATRIURETIC | Routin | 04/23/2014 | | Results for this | | PEPTIDE | e | 3:55 AM | | procedure are in the | | | | PST | | results section. | + +--------+ + + + | MAGNESIUM | Routin | 04/23/2014 | | Results for this | | | e | 3:55 AM | | procedure are in the | | | | PST | | results section. | + +--------+ + + + | CEA | Routin | 04/23/2014 | | Results for this | | | e | 3:55 AM | | procedure are in the | | | | PST | | results section. | + +--------+ + + + | HEPATIC FUNCTION | Routin | 04/23/2014 | | Results for this | | PANEL | e | 3:55 AM | | procedure are in the | | | | PST | | results section. | + +--------+ + + + | BASIC METABOLIC | Routin | 04/23/2014 | | Results for this | | PANEL | e | 3:55 AM | | procedure are in the | | | | PST | | results section. | + +--------+ + + + | EXTERNAL LAB: CBC | Routin | 04/23/2014 | | Results for this | | | e | 2:39 AM | | procedure are in the | | | | PST | | results section. | + +--------+ + + + | POC GLUCOSE | Routin | 04/23/2014 | | Results for this | | | e | 2:30 AM | | procedure are in the | | | | PST | | results section. | + +--------+ + + + | ELLIOT GINNY CG8, | Routin | 04/23/2014 | | Results for this | | ARTERIAL | e | 1:48 AM | | procedure are in the | | | | PST | | results section. | + +--------+ + + + | EXTERNAL LAB: CBC | Routin | 04/23/2014 | | Results for this | | | e | 1:24 AM | | procedure are in the | | | | PST | | results section. | + +--------+ + + + | TROPONIN I | Routin | 04/23/2014 | | Results for this | | | e | 1:24 AM | | procedure are in the | | | | PST | | results section. | + +--------+ + + + | LACTIC ACID | Routin | 04/23/2014 | | Results for this | | | e | 1:24 AM | | procedure are in the | | | | PST | | results section. | + +--------+ + + + | POC ISTAT, CG8, | Routin | 04/23/2014 | | Results for this | | ARTERIAL | e | 12:14 AM | | procedure are in the | | | | PST | | results section. | + +--------+ + + + | POC GLUCOSE | Routin | 04/22/2014 | | Results for this | | | e | 11:57 PM | | procedure are in the | | | | PST | | results section. | + +--------+ + + + | CT HEAD WO CONTRAST | Routin | 04/22/2014 | | Results for this | | | e | 11:49 PM | | procedure are in the | | | | PST | | results section. | + +--------+ + + + | CT CHEST ABDOMEN | Routin | 04/22/2014 | | Results for this | | PELVIS WO CONTRAST | e | 11:49 PM | | procedure are in the | | | | PST | | results section. | + +--------+ + + + | POC GLUCOSE | Routin | 04/22/2014 | | Results for this | | | e | 9:44 PM | | procedure are in the | | | | PST | | results section. | + +--------+ + + + | POC GLUCOSE | Routin | 04/22/2014 | | Results for this | | | e | 9:40 PM | | procedure are in the | | | | PST | | results section. | + +--------+ + + + | LACTIC ACID | Routin | 04/22/2014 | | Results for this | | | e | 8:43 PM | | procedure are in the | | | | PST | | results section. | + +--------+ + + + | AMMONIA | Routin | 04/22/2014 | | Results for this | | | e | 8:43 PM | | procedure are in the | | | | PST | | results section. | + +--------+ + + + | EXTERNAL LAB: CBC | Routin | 04/22/2014 | | Results for this | | | e | 8:25 PM | | procedure are in the | | | | PST | | results section. | + +--------+ + + + | TROPONIN I | Routin | 04/22/2014 | | Results for this | | | e | 8:25 PM | | procedure are in the | | | | PST | | results section. | + +--------+ + + + | CK-MB | Routin | 04/22/2014 | | Results for this | | | e | 8:25 PM | | procedure are in the | | | | PST | | results section. | + +--------+ + + + | PTT | Routin | 04/22/2014 | | Results for this | | | e | 8:25 PM | | procedure are in the | | | | PST | | results section. | + +--------+ + + + | PROTIME INR | Routin | 04/22/2014 | | Results for this | | | e | 8:25 PM | | procedure are in the | | | | PST | | results section. | + +--------+ + + + | FIBRINOGEN | Routin | 04/22/2014 | | Results for this | | | e | 8:25 PM | | procedure are in the | | | | PST | | results section. | + +--------+ + + + | MAGNESIUM | Routin | 04/22/2014 | | Results for this | | | e | 8:25 PM | | procedure are in the | | | | PST | | results section. | + +--------+ + + + | CK TOTAL | Routin | 04/22/2014 | | Results for this | | | e | 8:25 PM | | procedure are in the | | | | PST | | results section. | + +--------+ + + + | BASIC METABOLIC | Routin | 04/22/2014 | | Results for this | | PANEL | e | 8:25 PM | | procedure are in the | | | | PST | | results section. | + +--------+ + + + | POC GLUCOSE | Routin | 04/22/2014 | | Results for this | | | e | 8:21 PM | | procedure are in the | | | | PST | | results section. | + +--------+ + + + | POC GLUCOSE | Routin | 04/22/2014 | | Results for this | | | e | 6:29 PM | | procedure are in the | | | | PST | | results section. | + +--------+ + + + | POC GLUCOSE | Routin | 04/22/2014 | | Results for this | | | e | 5:50 PM | | procedure are in the | | | | PST | | results section. | + +--------+ + + + | EXTERNAL LAB: CBC | Routin | 04/22/2014 | | Results for this | | | e | 5:32 PM | | procedure are in the | | | | PST | | results section. | + +--------+ + + + | LACTIC ACID | Routin | 04/22/2014 | | Results for this | | | e | 5:32 PM | | procedure are in the | | | | PST | | results section. | + +--------+ + + + | EXTERNAL LAB: CBC | Routin | 04/22/2014 | | Results for this | | | e | 2:43 PM | | procedure are in the | | | | PST | | results section. | + +--------+ + + + | SOCO GARCIA8, | Routin | 04/22/2014 | | Results for this | | ARTERIAL | e | 2:43 PM | | procedure are in the | | | | PST | | results section. | + +--------+ + + + | PATHOLOGY CONSULT | Routin | 04/22/2014 | | Results for this | | REQUEST | e | 2:43 PM | | procedure are in the | | | | PST | | results section. | + +--------+ + + + | PTT | Routin | 04/22/2014 | | Results for this | | | e | 2:43 PM | | procedure are in the | | | | PST | | results section. | + +--------+ + + + | PROTIME INR | Routin | 04/22/2014 | | Results for this | | | e | 2:43 PM | | procedure are in the | | | | PST | | results section. | + +--------+ + + + | FIBRINOGEN | Routin | 04/22/2014 | | Results for this | | | e | 2:43 PM | | procedure are in the | | | | PST | | results section. | + +--------+ + + + | BASIC METABOLIC | Routin | 04/22/2014 | | Results for this | | PANEL | e | 2:43 PM | | procedure are in the | | | | PST | | results section. | + +--------+ + + + | LACTIC ACID | Routin | 04/22/2014 | | Results for this | | | e | 2:42 PM | | procedure are in the | | | | PST | | results section. | + +--------+ + + + | POC GLUCOSE | Routin | 04/22/2014 | | Results for this | | | e | 2:41 PM | | procedure are in the | | | | PST | | results section. | + +--------+ + + + | US ABDOMEN LIMITED | Routin | 04/22/2014 | | Results for this | | | e | 2:26 PM | | procedure are in the | | | | PST | | results section. | + +--------+ + + + | XR CHEST 1 VIEW | Routin | 04/22/2014 | | Results for this | | | e | 2:13 PM | | procedure are in the | | | | PST | | results section. | + +--------+ + + + | POC GINNY CG8, | Routin | 04/22/2014 | | Results for this | | ARTERIAL | e | 1:41 PM | | procedure are in the | | | | PST | | results section. | + +--------+ + + + | POC GLUCOSE | Routin | 04/22/2014 | | Results for this | | | e | 12:31 PM | | procedure are in the | | | | PST | | results section. | + +--------+ + + + | ECG 12 LEAD | Routin | 04/22/2014 | | Results for this | | | e | 11:11 AM | | procedure are in the | | | | PST | | results section. | + +--------+ + + + | POC GLUCOSE | Routin | 04/22/2014 | | Results for this | | | e | 6:31 AM | | procedure are in the | | | | PST | | results section. | + +--------+ + + + | XR CHEST 1 VIEW | Routin | 04/22/2014 | | Results for this | | | e | 6:23 AM | | procedure are in the | | | | PST | | results section. | + +--------+ + + + | AMMONIA | Routin | 04/22/2014 | | Results for this | | | e | 4:03 AM | | procedure are in the | | | | PST | | results section. | + +--------+ + + + | EXTERNAL LAB: CBC | Routin | 04/22/2014 | | Results for this | | | e | 4:00 AM | | procedure are in the | | | | PST | | results section. | + +--------+ + + + | LIPID PANEL | Routin | 04/22/2014 | | Results for this | | | e | 4:00 AM | | procedure are in the | | | | PST | | results section. | + +--------+ + + + | PROCALCITONIN, SERUM | Routin | 04/22/2014 | | Results for this | | | e | 4:00 AM | | procedure are in the | | | | PST | | results section. | + +--------+ + + + | PTT | Routin | 04/22/2014 | | Results for this | | | e | 4:00 AM | | procedure are in the | | | | PST | | results section. | + +--------+ + + + | PROTIME INR | Routin | 04/22/2014 | | Results for this | | | e | 4:00 AM | | procedure are in the | | | | PST | | results section. | + +--------+ + + + | PREALBUMIN | Routin | 04/22/2014 | | Results for this | | | e | 4:00 AM | | procedure are in the | | | | PST | | results section. | + +--------+ + + + | PHOSPHORUS | Routin | 04/22/2014 | | Results for this | | | e | 4:00 AM | | procedure are in the | | | | PST | | results section. | + +--------+ + + + | B TYPE NATRIURETIC | Routin | 04/22/2014 | | Results for this | | PEPTIDE | e | 4:00 AM | | procedure are in the | | | | PST | | results section. | + +--------+ + + + | MAGNESIUM | Routin | 04/22/2014 | | Results for this | | | e | 4:00 AM | | procedure are in the | | | | PST | | results section. | + +--------+ + + + | HEPATIC FUNCTION | Routin | 04/22/2014 | | Results for this | | PANEL | e | 4:00 AM | | procedure are in the | | | | PST | | results section. | + +--------+ + + + | BASIC METABOLIC | Routin | 04/22/2014 | | Results for this | | PANEL | e | 4:00 AM | | procedure are in the | | | | PST | | results section. | + +--------+ + + + | CULTURE, BLOOD | Timed | 04/21/2014 | | Results for this | | | | 11:45 PM | | procedure are in the | | | | PST | | results section. | + +--------+ + + + | CULTURE, BLOOD, 2ND | Timed | 04/21/2014 | | Results for this | | SPECIMEN (NON-ORD) | | 11:28 PM | | procedure are in the | | | | PST | | results section. | + +--------+ + + + | POTASSIUM | Routin | 04/21/2014 | | Results for this | | | e | 11:09 PM | | procedure are in the | | | | PST | | results section. | + +--------+ + + + | POC GLUCOSE | Routin | 04/21/2014 | | Results for this | | | e | 11:06 PM | | procedure are in the | | | | PST | | results section. | + +--------+ + + + | EXTERNAL LAB: CBC | Routin | 04/21/2014 | | Results for this | | | e | 3:36 PM | | procedure are in the | | | | PST | | results section. | + +--------+ + + + | PHOSPHORUS | Routin | 04/21/2014 | | Results for this | | | e | 3:36 PM | | procedure are in the | | | | PST | | results section. | + +--------+ + + + | MAGNESIUM | Routin | 04/21/2014 | | Results for this | | | e | 3:36 PM | | procedure are in the | | | | PST | | results section. | + +--------+ + + + | BASIC METABOLIC | Routin | 04/21/2014 | | Results for this | | PANEL | e | 3:36 PM | | procedure are in the | | | | PST | | results section. | + +--------+ + + + | POTASSIUM | Routin | 04/21/2014 | | Results for this | | | e | 12:42 PM | | procedure are in the | | | | PST | | results section. | + +--------+ + + + | VANCOMYCIN LEVEL | Routin | 04/21/2014 | | Results for this | | | e | 12:42 PM | | procedure are in the | | | | PST | | results section. | + +--------+ + + + | POC GLUCOSE | Routin | 04/21/2014 | | Results for this | | | e | 11:49 AM | | procedure are in the | | | | PST | | results section. | + +--------+ + + + | PTT | Routin | 04/21/2014 | | Results for this | | | e | 8:50 AM | | procedure are in the | | | | PST | | results section. | + +--------+ + + + | POC GLUCOSE | Routin | 04/21/2014 | | Results for this | | | e | 6:38 AM | | procedure are in the | | | | PST | | results section. | + +--------+ + + + | XR CHEST 1 VIEW | Routin | 04/21/2014 | | Results for this | | | e | 5:52 AM | | procedure are in the | | | | PST | | results section. | + +--------+ + + + | EXTERNAL LAB: CBC | Routin | 04/21/2014 | | Results for this | | | e | 3:49 AM | | procedure are in the | | | | PST | | results section. | + +--------+ + + + | PROTIME INR | Routin | 04/21/2014 | | Results for this | | | e | 3:49 AM | | procedure are in the | | | | PST | | results section. | + +--------+ + + + | PHOSPHORUS | Routin | 04/21/2014 | | Results for this | | | e | 3:49 AM | | procedure are in the | | | | PST | | results section. | + +--------+ + + + | MAGNESIUM | Routin | 04/21/2014 | | Results for this | | | e | 3:49 AM | | procedure are in the | | | | PST | | results section. | + +--------+ + + + | BASIC METABOLIC | Routin | 04/21/2014 | | Results for this | | PANEL | e | 3:49 AM | | procedure are in the | | | | PST | | results section. | + +--------+ + + + | PTT | Routin | 04/21/2014 | | Results for this | | | e | 1:08 AM | | procedure are in the | | | | PST | | results section. | + +--------+ + + + | POTASSIUM | Routin | 04/20/2014 | | Results for this | | | e | 11:53 PM | | procedure are in the | | | | PST | | results section. | + +--------+ + + + | POC GLUCOSE | Routin | 04/20/2014 | | Results for this | | | e | 11:10 PM | | procedure are in the | | | | PST | | results section. | + +--------+ + + + | PTT | Routin | 04/20/2014 | | Results for this | | | e | 8:08 PM | | procedure are in the | | | | PST | | results section. | + +--------+ + + + | PTT | Routin | 04/20/2014 | | Results for this | | | e | 6:10 PM | | procedure are in the | | | | PST | | results section. | + +--------+ + + + | POTASSIUM | Routin | 04/20/2014 | | Results for this | | | e | 6:10 PM | | procedure are in the | | | | PST | | results section. | + +--------+ + + + | MAGNESIUM | Routin | 04/20/2014 | | Results for this | | | e | 6:10 PM | | procedure are in the | | | | PST | | results section. | + +--------+ + + + | POC GLUCOSE | Routin | 04/20/2014 | | Results for this | | | e | 5:44 PM | | procedure are in the | | | | PST | | results section. | + +--------+ + + + | POTASSIUM | Routin | 04/20/2014 | | Results for this | | | e | 11:45 AM | | procedure are in the | | | | PST | | results section. | + +--------+ + + + | PHOSPHORUS | Routin | 04/20/2014 | | Results for this | | | e | 11:45 AM | | procedure are in the | | | | PST | | results section. | + +--------+ + + + | MAGNESIUM | Routin | 04/20/2014 | | Results for this | | | e | 11:45 AM | | procedure are in the | | | | PST | | results section. | + +--------+ + + + | POC GLUCOSE | Routin | 04/20/2014 | | Results for this | | | e | 11:35 AM | | procedure are in the | | | | PST | | results section. | + +--------+ + + + | ECHO LIMITED | Routin | 04/20/2014 | | Results for this | | | e | 10:10 AM | | procedure are in the | | | | PST | | results section. | + +--------+ + + + | PTT | Routin | 04/20/2014 | | Results for this | | | e | 9:40 AM | | procedure are in the | | | | PST | | results section. | + +--------+ + + + | XR CHEST 1 VIEW | Routin | 04/20/2014 | | Results for this | | | e | 5:43 AM | | procedure are in the | | | | PST | | results section. | + +--------+ + + + | PHOSPHORUS | Routin | 04/20/2014 | | Results for this | | | e | 5:08 AM | | procedure are in the | | | | PST | | results section. | + +--------+ + + + | MAGNESIUM | Routin | 04/20/2014 | | Results for this | | | e | 5:08 AM | | procedure are in the | | | | PST | | results section. | + +--------+ + + + | AMMONIA | Routin | 04/20/2014 | | Results for this | | | e | 5:07 AM | | procedure are in the | | | | PST | | results section. | + +--------+ + + + | POC GLUCOSE | Routin | 04/20/2014 | | Results for this | | | e | 5:04 AM | | procedure are in the | | | | PST | | results section. | + +--------+ + + + | EXTERNAL LAB: CBC | Routin | 04/20/2014 | | Results for this | | | e | 4:30 AM | | procedure are in the | | | | PST | | results section. | + +--------+ + + + | LACTIC ACID | Routin | 04/20/2014 | | Results for this | | | e | 3:13 AM | | procedure are in the | | | | PST | | results section. | + +--------+ + + + | T3, TOTAL AND FREE | Routin | 04/20/2014 | | Results for this | | | e | 3:11 AM | | procedure are in the | | | | PST | | results section. | + +--------+ + + + | EVE PROFILE, REFLEX | Routin | 04/20/2014 | | Results for this | | | e | 3:11 AM | | procedure are in the | | | | PST | | results section. | + +--------+ + + + | LIPID PANEL | Routin | 04/20/2014 | | Results for this | | | e | 3:11 AM | | procedure are in the | | | | PST | | results section. | + +--------+ + + + | PROCALCITONIN, SERUM | Routin | 04/20/2014 | | Results for this | | | e | 3:11 AM | | procedure are in the | | | | PST | | results section. | + +--------+ + + + | TROPONIN I | Routin | 04/20/2014 | | Results for this | | | e | 3:11 AM | | procedure are in the | | | | PST | | results section. | + +--------+ + + + | CK-MB | Routin | 04/20/2014 | | Results for this | | | e | 3:11 AM | | procedure are in the | | | | PST | | results section. | + +--------+ + + + | HEPATITIS PANEL, | Routin | 04/20/2014 | | Results for this | | ACUTE | e | 3:11 AM | | procedure are in the | | | | PST | | results section. | + +--------+ + + + | PTT | Routin | 04/20/2014 | | Results for this | | | e | 3:11 AM | | procedure are in the | | | | PST | | results section. | + +--------+ + + + | MOIRAIME INR | Routin | 04/20/2014 | | Results for this | | | e | 3:11 AM | | procedure are in the | | | | PST | | results section. | + +--------+ + + + | RHEUMATOID FACTOR, | Routin | 04/20/2014 | | Results for this | | QUANT | e | 3:11 AM | | procedure are in the | | | | PST | | results section. | + +--------+ + + + | TSH | Routin | 04/20/2014 | | Results for this | | | e | 3:11 AM | | procedure are in the | | | | PST | | results section. | + +--------+ + + + | T4, FREE | Routin | 04/20/2014 | | Results for this | | | e | 3:11 AM | | procedure are in the | | | | PST | | results section. | + +--------+ + + + | PREALBUMIN | Routin | 04/20/2014 | | Results for this | | | e | 3:11 AM | | procedure are in the | | | | PST | | results section. | + +--------+ + + + | MAGNESIUM | Routin | 04/20/2014 | | Results for this | | | e | 3:11 AM | | procedure are in the | | | | PST | | results section. | + +--------+ + + + | HEMOGLOBIN A1C | Routin | 04/20/2014 | | Results for this | | | e | 3:11 AM | | procedure are in the | | | | PST | | results section. | + +--------+ + + + | CK TOTAL | Routin | 04/20/2014 | | Results for this | | | e | 3:11 AM | | procedure are in the | | | | PST | | results section. | + +--------+ + + + | HEPATIC FUNCTION | Routin | 04/20/2014 | | Results for this | | PANEL | e | 3:11 AM | | procedure are in the | | | | PST | | results section. | + +--------+ + + + | BASIC METABOLIC | Routin | 04/20/2014 | | Results for this | | PANEL | e | 3:11 AM | | procedure are in the | | | | PST | | results section. | + +--------+ + + + | GRAM STAIN, REFLEX | Timed | 04/19/2014 | | Results for this | | SPUTUM CULTURE | | 11:54 PM | | procedure are in the | | | | PST | | results section. | + +--------+ + + + | POC GLUCOSE | Routin | 04/19/2014 | | Results for this | | | e | 11:16 PM | | procedure are in the | | | | PST | | results section. | + +--------+ + + + | CULTURE, URINE | Timed | 04/19/2014 | | Results for this | | | | 10:47 PM | | procedure are in the | | | | PST | | results section. | + +--------+ + + + | CT HEAD WO CONTRAST | Routin | 04/19/2014 | | Results for this | | | e | 9:30 PM | | procedure are in the | | | | PST | | results section. | + +--------+ + + + | CULTURE, BLOOD | STAT | 04/19/2014 | | Results for this | | | | 9:06 PM | | procedure are in the | | | | PST | | results section. | + +--------+ + + + | HELICOBACTER PYLORI | Routin | 04/19/2014 | | Results for this | | AG, IGA | e | 9:06 PM | | procedure are in the | | | | PST | | results section. | + +--------+ + + + | PHOSPHORUS | Routin | 04/19/2014 | | Results for this | | | e | 9:06 PM | | procedure are in the | | | | PST | | results section. | + +--------+ + + + | MAGNESIUM | Routin | 04/19/2014 | | Results for this | | | e | 9:06 PM | | procedure are in the | | | | PST | | results section. | + +--------+ + + + | BASIC METABOLIC | Routin | 04/19/2014 | | Results for this | | PANEL | e | 9:06 PM | | procedure are in the | | | | PST | | results section. | + +--------+ + + + | CULTURE, BLOOD | STAT | 04/19/2014 | | Results for this | | | | 9:03 PM | | procedure are in the | | | | PST | | results section. | + +--------+ + + + | POC GLUCOSE | Routin | 04/19/2014 | | Results for this | | | e | 5:47 PM | | procedure are in the | | | | PST | | results section. | + +--------+ + + + | VANCOMYCIN, TROUGH | Routin | 04/19/2014 | | Results for this | | | e | 12:11 PM | | procedure are in the | | | | PST | | results section. | + +--------+ + + + | POC GLUCOSE | Routin | 04/19/2014 | | Results for this | | | e | 12:04 PM | | procedure are in the | | | | PST | | results section. | + +--------+ + + + | HISTORICAL | Timed | 04/19/2014 | | Results for this | | MICROBIOLOGY RESULT | | 11:53 AM | | procedure are in the | | | | PST | | results section. | + +--------+ + + + | POTASSIUM | Routin | 04/19/2014 | | Results for this | | | e | 8:42 AM | | procedure are in the | | | | PST | | results section. | + +--------+ + + + | PHOSPHORUS | Routin | 04/19/2014 | | Results for this | | | e | 8:42 AM | | procedure are in the | | | | PST | | results section. | + +--------+ + + + | MAGNESIUM | Routin | 04/19/2014 | | Results for this | | | e | 8:42 AM | | procedure are in the | | | | PST | | results section. | + +--------+ + + + | POC GLUCOSE | Routin | 04/19/2014 | | Results for this | | | e | 5:58 AM | | procedure are in the | | | | PST | | results section. | + +--------+ + + + | XR CHEST 1 VIEW | Routin | 04/19/2014 | | Results for this | | | e | 5:43 AM | | procedure are in the | | | | PST | | results section. | + +--------+ + + + | EXTERNAL LAB: CBC | Routin | 04/19/2014 | | Results for this | | | e | 2:52 AM | | procedure are in the | | | | PST | | results section. | + +--------+ + + + | PROTIME INR | Routin | 04/19/2014 | | Results for this | | | e | 2:52 AM | | procedure are in the | | | | PST | | results section. | + +--------+ + + + | PHOSPHORUS | Routin | 04/19/2014 | | Results for this | | | e | 2:52 AM | | procedure are in the | | | | PST | | results section. | + +--------+ + + + | MAGNESIUM | Routin | 04/19/2014 | | Results for this | | | e | 2:52 AM | | procedure are in the | | | | PST | | results section. | + +--------+ + + + | BASIC METABOLIC | Routin | 04/19/2014 | | Results for this | | PANEL | e | 2:52 AM | | procedure are in the | | | | PST | | results section. | + +--------+ + + + | POC GLUCOSE | Routin | 04/18/2014 | | Results for this | | | e | 11:22 PM | | procedure are in the | | | | PST | | results section. | + +--------+ + + + | POC GLUCOSE | Routin | 04/18/2014 | | Results for this | | | e | 6:08 PM | | procedure are in the | | | | PST | | results section. | + +--------+ + + + | POTASSIUM | Routin | 04/18/2014 | | Results for this | | | e | 1:14 PM | | procedure are in the | | | | PST | | results section. | + +--------+ + + + | POC GLUCOSE | Routin | 04/18/2014 | | Results for this | | | e | 1:13 PM | | procedure are in the | | | | PST | | results section. | + +--------+ + + + | XR CHEST 1 VIEW | Routin | 04/18/2014 | | Results for this | | | e | 6:43 AM | | procedure are in the | | | | PST | | results section. | + +--------+ + + + | POC GLUCOSE | Routin | 04/18/2014 | | Results for this | | | e | 6:04 AM | | procedure are in the | | | | PST | | results section. | + +--------+ + + + | EXTERNAL LAB: CBC | Routin | 04/18/2014 | | Results for this | | | e | 4:30 AM | | procedure are in the | | | | PST | | results section. | + +--------+ + + + | PROTIME INR | Routin | 04/18/2014 | | Results for this | | | e | 4:30 AM | | procedure are in the | | | | PST | | results section. | + +--------+ + + + | PHOSPHORUS | Routin | 04/18/2014 | | Results for this | | | e | 4:30 AM | | procedure are in the | | | | PST | | results section. | + +--------+ + + + | MAGNESIUM | Routin | 04/18/2014 | | Results for this | | | e | 4:30 AM | | procedure are in the | | | | PST | | results section. | + +--------+ + + + | BASIC METABOLIC | Routin | 04/18/2014 | | Results for this | | PANEL | e | 4:30 AM | | procedure are in the | | | | PST | | results section. | + +--------+ + + + | POC GLUCOSE | Routin | 04/18/2014 | | Results for this | | | e | 12:05 AM | | procedure are in the | | | | PST | | results section. | + +--------+ + + + | POTASSIUM | Routin | 04/17/2014 | | Results for this | | | e | 9:33 PM | | procedure are in the | | | | PST | | results section. | + +--------+ + + + | PHOSPHORUS | Routin | 04/17/2014 | | Results for this | | | e | 9:33 PM | | procedure are in the | | | | PST | | results section. | + +--------+ + + + | MAGNESIUM | Routin | 04/17/2014 | | Results for this | | | e | 9:33 PM | | procedure are in the | | | | PST | | results section. | + +--------+ + + + | POC GLUCOSE | Routin | 04/17/2014 | | Results for this | | | e | 5:59 PM | | procedure are in the | | | | PST | | results section. | + +--------+ + + + | POTASSIUM | Routin | 04/17/2014 | | Results for this | | | e | 1:30 PM | | procedure are in the | | | | PST | | results section. | + +--------+ + + + | VANCOMYCIN, TROUGH | Routin | 04/17/2014 | | Results for this | | | e | 1:30 PM | | procedure are in the | | | | PST | | results section. | + +--------+ + + + | POC GLUCOSE | Routin | 04/17/2014 | | Results for this | | | e | 12:49 PM | | procedure are in the | | | | PST | | results section. | + +--------+ + + + | XR CHEST 1 VIEW | Routin | 04/17/2014 | | Results for this | | | e | 6:25 AM | | procedure are in the | | | | PST | | results section. | + +--------+ + + + | POC GLUCOSE | Routin | 04/17/2014 | | Results for this | | | e | 6:13 AM | | procedure are in the | | | | PST | | results section. | + +--------+ + + + | EXTERNAL LAB: CBC | Routin | 04/17/2014 | | Results for this | | | e | 3:19 AM | | procedure are in the | | | | PST | | results section. | + +--------+ + + + | PROTIME INR | Routin | 04/17/2014 | | Results for this | | | e | 3:19 AM | | procedure are in the | | | | PST | | results section. | + +--------+ + + + | PHOSPHORUS | Routin | 04/17/2014 | | Results for this | | | e | 3:19 AM | | procedure are in the | | | | PST | | results section. | + +--------+ + + + | MAGNESIUM | Routin | 04/17/2014 | | Results for this | | | e | 3:19 AM | | procedure are in the | | | | PST | | results section. | + +--------+ + + + | BASIC METABOLIC | Routin | 04/17/2014 | | Results for this | | PANEL | e | 3:19 AM | | procedure are in the | | | | PST | | results section. | + +--------+ + + + | POC GLUCOSE | Routin | 04/16/2014 | | Results for this | | | e | 11:20 PM | | procedure are in the | | | | PST | | results section. | + +--------+ + + + | POC GLUCOSE | Routin | 04/16/2014 | | Results for this | | | e | 6:33 PM | | procedure are in the | | | | PST | | results section. | + +--------+ + + + | POC GLUCOSE | Routin | 04/16/2014 | | Results for this | | | e | 1:05 PM | | procedure are in the | | | | PST | | results section. | + +--------+ + + + | MAYA TROUGH | Routin | 04/16/2014 | | Results for this | | | e | 12:59 PM | | procedure are in the | | | | PST | | results section. | + +--------+ + + + | POC GLUCOSE | Routin | 04/16/2014 | | Results for this | | | e | 8:51 AM | | procedure are in the | | | | PST | | results section. | + +--------+ + + + | XR ABDOMEN AP | Routin | 04/16/2014 | | Results for this | | | e | 7:26 AM | | procedure are in the | | | | PST | | results section. | + +--------+ + + + | XR CHEST 1 VIEW | Routin | 04/16/2014 | | Results for this | | | e | 6:18 AM | | procedure are in the | | | | PST | | results section. | + +--------+ + + + | EXTERNAL LAB: CBC | Routin | 04/16/2014 | | Results for this | | | e | 3:15 AM | | procedure are in the | | | | PST | | results section. | + +--------+ + + + | PROTIME INR | Routin | 04/16/2014 | | Results for this | | | e | 3:15 AM | | procedure are in the | | | | PST | | results section. | + +--------+ + + + | PHOSPHORUS | Routin | 04/16/2014 | | Results for this | | | e | 3:15 AM | | procedure are in the | | | | PST | | results section. | + +--------+ + + + | B TYPE NATRIURETIC | Routin | 04/16/2014 | | Results for this | | PEPTIDE | e | 3:15 AM | | procedure are in the | | | | PST | | results section. | + +--------+ + + + | MAGNESIUM | Routin | 04/16/2014 | | Results for this | | | e | 3:15 AM | | procedure are in the | | | | PST | | results section. | + +--------+ + + + | BASIC METABOLIC | Routin | 04/16/2014 | | Results for this | | PANEL | e | 3:15 AM | | procedure are in the | | | | PST | | results section. | + +--------+ + + + | POTASSIUM | Routin | 04/15/2014 | | Results for this | | | e | 11:41 PM | | procedure are in the | | | | PST | | results section. | + +--------+ + + + | POTASSIUM | Routin | 04/15/2014 | | Results for this | | | e | 8:15 PM | | procedure are in the | | | | PST | | results section. | + +--------+ + + + | POTASSIUM | Routin | 04/15/2014 | | Results for this | | | e | 2:26 PM | | procedure are in the | | | | PST | | results section. | + +--------+ + + + | AMMONIA | Routin | 04/15/2014 | | Results for this | | | e | 2:25 PM | | procedure are in the | | | | PST | | results section. | + +--------+ + + + | XR CHEST 1 VIEW | Routin | 04/15/2014 | | Results for this | | | e | 6:18 AM | | procedure are in the | | | | PST | | results section. | + +--------+ + + + | ECG 12 LEAD | Routin | 04/15/2014 | | Results for this | | | e | 5:06 AM | | procedure are in the | | | | PST | | results section. | + +--------+ + + + | LACTIC ACID | Routin | 04/15/2014 | | Results for this | | | e | 4:34 AM | | procedure are in the | | | | PST | | results section. | + +--------+ + + + | EXTERNAL LAB: CBC | Routin | 04/15/2014 | | Results for this | | | e | 4:22 AM | | procedure are in the | | | | PST | | results section. | + +--------+ + + + | TROPONIN I | Routin | 04/15/2014 | | Results for this | | | e | 4:22 AM | | procedure are in the | | | | PST | | results section. | + +--------+ + + + | CK-MB | Routin | 04/15/2014 | | Results for this | | | e | 4:22 AM | | procedure are in the | | | | PST | | results section. | + +--------+ + + + | PROTIME INR | Routin | 04/15/2014 | | Results for this | | | e | 4:22 AM | | procedure are in the | | | | PST | | results section. | + +--------+ + + + | PHOSPHORUS | Routin | 04/15/2014 | | Results for this | | | e | 4:22 AM | | procedure are in the | | | | PST | | results section. | + +--------+ + + + | B TYPE NATRIURETIC | Routin | 04/15/2014 | | Results for this | | PEPTIDE | e | 4:22 AM | | procedure are in the | | | | PST | | results section. | + +--------+ + + + | MAGNESIUM | Routin | 04/15/2014 | | Results for this | | | e | 4:22 AM | | procedure are in the | | | | PST | | results section. | + +--------+ + + + | CK TOTAL | Routin | 04/15/2014 | | Results for this | | | e | 4:22 AM | | procedure are in the | | | | PST | | results section. | + +--------+ + + + | VANCOMYCIN, TROUGH | Routin | 04/15/2014 | | Results for this | | | e | 4:22 AM | | procedure are in the | | | | PST | | results section. | + +--------+ + + + | BASIC METABOLIC | Routin | 04/15/2014 | | Results for this | | PANEL | e | 4:22 AM | | procedure are in the | | | | PST | | results section. | + +--------+ + + + | MAYA TROUGH | Routin | 04/14/2014 | | Results for this | | | e | 6:06 PM | | procedure are in the | | | | PST | | results section. | + +--------+ + + + | POTASSIUM | Routin | 04/14/2014 | | Results for this | | | e | 6:05 PM | | procedure are in the | | | | PST | | results section. | + +--------+ + + + | PHOSPHORUS | Routin | 04/14/2014 | | Results for this | | | e | 6:05 PM | | procedure are in the | | | | PST | | results section. | + +--------+ + + + | MAGNESIUM | Routin | 04/14/2014 | | Results for this | | | e | 6:05 PM | | procedure are in the | | | | PST | | results section. | + +--------+ + + + | HISTORICAL | Timed | 04/14/2014 | | Results for this | | MICROBIOLOGY RESULT | | 7:04 AM | | procedure are in the | | | | PST | | results section. | + +--------+ + + + | XR CHEST 1 VIEW | Routin | 04/14/2014 | | Results for this | | | e | 6:16 AM | | procedure are in the | | | | PST | | results section. | + +--------+ + + + | EXTERNAL LAB: CBC | Routin | 04/14/2014 | | Results for this | | | e | 4:22 AM | | procedure are in the | | | | PST | | results section. | + +--------+ + + + | PROTIME INR | Routin | 04/14/2014 | | Results for this | | | e | 4:22 AM | | procedure are in the | | | | PST | | results section. | + +--------+ + + + | PHOSPHORUS | Routin | 04/14/2014 | | Results for this | | | e | 4:22 AM | | procedure are in the | | | | PST | | results section. | + +--------+ + + + | MAGNESIUM | Routin | 04/14/2014 | | Results for this | | | e | 4:22 AM | | procedure are in the | | | | PST | | results section. | + +--------+ + + + | BASIC METABOLIC | Routin | 04/14/2014 | | Results for this | | PANEL | e | 4:22 AM | | procedure are in the | | | | PST | | results section. | + +--------+ + + + | POTASSIUM | Routin | 04/14/2014 | | Results for this | | | e | 12:46 AM | | procedure are in the | | | | PST | | results section. | + +--------+ + + + | PHOSPHORUS | Routin | 04/14/2014 | | Results for this | | | e | 12:46 AM | | procedure are in the | | | | PST | | results section. | + +--------+ + + + | MAGNESIUM | Routin | 04/14/2014 | | Results for this | | | e | 12:46 AM | | procedure are in the | | | | PST | | results section. | + +--------+ + + + | HISTORICAL | Timed | 04/13/2014 | | Results for this | | MICROBIOLOGY RESULT | | 3:38 PM | | procedure are in the | | | | PST | | results section. | + +--------+ + + + | POTASSIUM | Routin | 04/13/2014 | | Results for this | | | e | 1:54 PM | | procedure are in the | | | | PST | | results section. | + +--------+ + + + | PHOSPHORUS | Routin | 04/13/2014 | | Results for this | | | e | 1:54 PM | | procedure are in the | | | | PST | | results section. | + +--------+ + + + | MAGNESIUM | Routin | 04/13/2014 | | Results for this | | | e | 1:54 PM | | procedure are in the | | | | PST | | results section. | + +--------+ + + + | PROTIME INR | Routin | 04/13/2014 | | Results for this | | | e | 9:20 AM | | procedure are in the | | | | PST | | results section. | + +--------+ + + + | XR CHEST 1 VIEW | Routin | 04/13/2014 | | Results for this | | | e | 7:10 AM | | procedure are in the | | | | PST | | results section. | + +--------+ + + + | EXTERNAL LAB: CBC | Routin | 04/13/2014 | | Results for this | | | e | 6:40 AM | | procedure are in the | | | | PST | | results section. | + +--------+ + + + | PROCALCITONIN, SERUM | Routin | 04/13/2014 | | Results for this | | | e | 4:41 AM | | procedure are in the | | | | PST | | results section. | + +--------+ + + + | BASIC METABOLIC | Routin | 04/13/2014 | | Results for this | | PANEL | e | 4:41 AM | | procedure are in the | | | | PST | | results section. | + +--------+ + + + | XR CHEST 1 VIEW | Routin | 04/12/2014 | | Results for this | | | e | 10:33 PM | | procedure are in the | | | | PST | | results section. | + +--------+ + + + | CULTURE, BLOOD, 2ND | Timed | 04/12/2014 | | Results for this | | SPECIMEN (NON-ORD) | | 6:10 PM | | procedure are in the | | | | PST | | results section. | + +--------+ + + + | EXTERNAL LAB: CBC | Routin | 04/12/2014 | | Results for this | | | e | 5:31 PM | | procedure are in the | | | | PST | | results section. | + +--------+ + + + | PATHOLOGY CONSULT | Routin | 04/12/2014 | | Results for this | | REQUEST | e | 5:31 PM | | procedure are in the | | | | PST | | results section. | + +--------+ + + + | PROTIME INR | Routin | 04/12/2014 | | Results for this | | | e | 5:31 PM | | procedure are in the | | | | PST | | results section. | + +--------+ + + + | COMPREHENSIVE | Routin | 04/12/2014 | | Results for this | | METABOLIC PANEL | e | 5:31 PM | | procedure are in the | | | | PST | | results section. | + +--------+ + + + | CULTURE, BLOOD | Timed | 04/12/2014 | | Results for this | | | | 5:30 PM | | procedure are in the | | | | PST | | results section. | + +--------+ + + + | XR CHEST 1 VIEW | Routin | 04/12/2014 | | Results for this | | | e | 5:13 PM | | procedure are in the | | | | PST | | results section. | + +--------+ + + + | MRSA NAAT | Routin | 04/12/2014 | | Results for this | | | e | 4:58 PM | | procedure are in the | | | | PST | | results section. | + +--------+ + + + | URINALYSIS, REFLEX | Routin | 04/12/2014 | | Results for this | | MICROSCOPIC AND/OR | e | 4:58 PM | | procedure are in the | | CULTURE | | PST | | results section. | + +--------+ + + + | GRAM STAIN, REFLEX | Timed | 04/12/2014 | | Results for this | | SPUTUM CULTURE | | 4:42 PM | | procedure are in the | | | | PST | | results section. | + +--------+ + + + | XR CHEST 1 VIEW | Routin | 04/11/2014 | | Results for this | | | e | 10:33 PM | | procedure are in the | | | | PST | | results section. | + +--------+ + + + | XR CHEST 1 VIEW | Routin | 04/09/2014 | | Results for this | | | e | 10:33 PM | | procedure are in the | | | | PST | | results section. | + +--------+ + + + | ECHO COMPLETE | Routin | 04/08/2014 | | Results for this | | | e | 10:33 PM | | procedure are in the | | | | PST | | results section. | + +--------+ + + + | CT ABDOMEN PELVIS W | Routin | 04/06/2014 | | Results for this | | CONTRAST | e | 10:33 PM | | procedure are in the | | | | PST | | results section. | + +--------+ + + + documented in this encounter Results Tissue Request For Pathology (04/24/2014 12:00 AM PST) + + | Specimen | + + | Soft tissue sample | | (specimen) | + + + + + | Narrative | Performed At | + + + | SPECIMEN(S): A SPLEEN SPECIMEN SOURCE: A. SPLEEN CLINICAL | EXTERNAL LAB | | HISTORY: 04/23/2014 at 02:00 H. Generalized weakness. 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 GROSS DESCRIPTION: The specimen is received in formalin | | | labeled with the patient's name and designated "spleen" and consists | | | of a 47.4 gram irregular-shaped spleen that is 5.5 x 5.5 x 3.5 cm. | | | Approximately 60% of the specimen has a yellow-white roughened | | | external surface. The remaining specimen displays a violaceous and | | | smooth capsule. Serially sectioning reveals a deep maroon rubbery | | | cut surface that is associated with the violaceous and smooth | | | capsule. The yellow-echavarria roughened area displays a dusky-brown | | | friable tissue. Mailroom Coordinator sections are submitted in cassettes | | | ([id number]). FM MICROSCOPIC EXAMINATION: Histologic sections of all | | | submitted blocks are examined by light microscopy. These findings, | | | together with the gross examination, support the pathologic diagnosis. | | | PERFORMING LABORATORY: Professional interpretation and technical | | | preparation was performed by [employer], [facility] | | | [address] [address] (Water System Operator: | | | Raphael Yee M.D.; IA#: [id number]). Diagnostician: Salty Bolton | | | King CHRISTOPHE Pathologist Electronically Signed 04/25/2014 | | + + + + +---------+ + + | Performing | Address | City/State/Zipcode | Phone Number | | Organization | | | | + +---------+ + + | EXTERNAL LAB | | | | + +---------+ + + POC Glucose (04/23/2014 7:51 AM PST) + + + + + + | Component | Value | Ref Range | Performed | Pathologist | | | | | At | Signature | + + + + + + | Glucose, | 107 (H)Comment: Testing | 65 - 99 mg/dL | EXTERNAL | | | Fingerstick | performed at [facility];[address] | | LAB | | | | [address];[place] | | | | | | [address] | | | | + + + + + + + + | Specimen | + + | | + + + +---------+ + + | Performing | Address | City/State/Zipcode | Phone Number | | Organization | | | | + +---------+ + + | EXTERNAL LAB | | | | + +---------+ + + External Lab: CBC (04/23/2014 6:58 AM PST) + + + + + + | Component | Value | Ref Range | Performed | Pathologist | | | | | At | Signature | + + + + + + | WBC | 11.7 (H)Comment: Testing | 3.8 - 11.0 K/uL | EXTERNAL | | | | performed at [facility];[address] | | LAB | | | | [address];[place] | | | | | | [address] | | | | + + + + + + | Non- | 3.62 (L)Comment: Testing | 3.70 - 5.10 | EXTERNAL | | | Red Blood | performed at [facility];[address] | M/uL | LAB | | | Cells | [address];[place] | | | | | Counted | [address] | | | | + + + + + + | Hemoglobin | 10.5 (L)Comment: Testing | 11.3 - 15.5 | EXTERNAL | | | | performed at [facility];[address] | g/dL | LAB | | | | [address];[place] | | | | | | [address] | | | | + + + + + + | Hematocrit, | 31.3 (L)Comment: Testing | 34.0 - 46.0 % | EXTERNAL | | | POC | performed at [facility];[address] | | LAB | | | | [address];[place] | | | | | | [address] | | | | + + + + + + | MCV | 86.5Comment: Testing | 80.0 - 100.0 fl | EXTERNAL | | | | performed at [facility];[address] | | LAB | | | | [address];[place] | | | | | | [address] | | | | + + + + + + | MCH | 29.1Comment: Testing | 27.0 - 34.0 pg | EXTERNAL | | | | performed at [facility];[address] | | LAB | | | | [address];[place] | | | | | | [address] | | | | + + + + + + | MCHC | 33.6Comment: Testing | 32.0 - 35.5 | EXTERNAL | | | | performed at [facility];[address] | g/dL | LAB | | | | [address];[place] | | | | | | [address] | | | | + + + + + + | RDW-CV | 46.8Comment: Testing | 37 - 53 fl | EXTERNAL | | | | performed at [facility];[address] | | LAB | | | | [address];[place] | | | | | | [address] | | | | + + + + + + | Platelet | 185Comment: Testing | 150 - 400 K/uL | EXTERNAL | | | Count | performed at [facility];[address] | | LAB | | | Plasma | [address];[place] | | | | | | [address] | | | | + + + + + + | MPV | 7.2Comment: Testing | fl | EXTERNAL | | | | performed at [facility];[address] | | LAB | | | | [address];[place] | | | | | | [address] | | | | + + + + + + | Differentia | MANUALComment: Testing | | EXTERNAL | | | l Type | performed at [facility];[address] | | LAB | | | | [address];[place] | | | | | | [address] | | | | + + + + + + | Nucleated | 2 (H)Comment: Testing | /100WBC | EXTERNAL | | | Red Blood | performed at [facility];[address] | | LAB | | | Cells | [address];[place] | | | | | | [address] | | | | + + + + + + | Segmented | 71Comment: Testing | % | EXTERNAL | | | Neutrophils | performed at [facility];[address] | | LAB | | | Manual | [address];[place] | | | | | | [address] | | | | + + + + + + | % Bands | 13Comment: Testing | % | EXTERNAL | | | | performed at [facility];[address] | | LAB | | | | [address];[place] | | | | | | [address] | | | | + + + + + + | % | 1Comment: Testing | % | EXTERNAL | | | Metamyelocy | performed at [facility];[address] | | LAB | | | petros | [address];[place] | | | | | | [address] | | | | + + + + + + | Lymphocytes | 12Comment: Testing | % | EXTERNAL | | | Manual | performed at [facility];[address] | | LAB | | | | [address];[place] | | | | | | [address] | | | | + + + + + + | Monocytes | 3Comment: Testing | % | EXTERNAL | | | Manual | performed at [facility];[address] | | LAB | | | | [address];[place] | | | | | | [address] | | | | + + + + + + | Absolute | 8.3 (H)Comment: Testing | 1.9 - 7.4 K/uL | EXTERNAL | | | Neutrophils | performed at [facility];[address] | | LAB | | | | [address];[place] | | | | | | [address] | | | | + + + + + + | Bands | 1.5 (H)Comment: Testing | 0 - 0.2 K/uL | EXTERNAL | | | Manual | performed at [facility];[address] | | LAB | | | | [address];[place] | | | | | | [address] | | | | + + + + + + | Absolute | 0.1 (H)Comment: Testing | K/uL | EXTERNAL | | | Metamyelocy | performed at [facility];[address] | | LAB | | | petros | [address];[place] | | | | | | [address] | | | | + + + + + + | Absolute | 1.4Comment: Testing | 1.0 - 3.9 K/uL | EXTERNAL | | | Lymphocytes | performed at [facility];[address] | | LAB | | | | [address];[place] | | | | | | [address] | | | | + + + + + + | Absolute | 0.4Comment: Testing | 0 - 0.8 K/uL | EXTERNAL | | | Monocytes | performed at [facility];[address] | | LAB | | | | [address];[place] | | | | | | [address] | | | | + + + + + + | RBC | RBC AND PLT MORPHOLOGY | | EXTERNAL | | | Morphology | APPEAR NORMALComment: | | LAB | | | | Testing performed at | | | | | | [facility];[address];[place] [address] | | | | + + + + + + + + | Specimen | + + | Blood specimen | | (specimen) | + + + +---------+ + + | Performing | Address | City/State/Zipcode | Phone Number | | Organization | | | | + +---------+ + + | EXTERNAL LAB | | | | + +---------+ + + XR Chest 1 Vw (04/23/2014 5:51 AM PST) + + | Specimen | + + | | + + + + + | Impressions | Performed At | + + + | 1. Worsening CHF with evolving pulmonary edema, and increasing | | | small left effusion. 2. Addition of right IJ central line tip at | | | the sinoatrial junction. 3. Otherwise unchanged tubes and lines. | | | 4. No pneumothorax. | | + + + + + + | Narrative | Performed At | + + + | HISTORY: Cough. Question pneumonia. COMPARISON: 04/22/14. | | | TECHNIQUE: AP portable film of the chest at 054 100/,. And 316 hours | | | FINDINGS: Pulmonary venous congestion and interstitial prominence | | | suggesting interstitial edema. Increasing small left effusion. Lower | | | lung volumes. ET tube, NG tube, left subclavian Mediport, right IJ | | | sheath again noted. Addition of a central venous catheter into the | | | right IJ sheath with tip at the sinoatrial junction. No pneumothorax. | | | Right PICC line unchanged. | | + + + + + | Procedure Note | + + | Judson, Rad Conversion - 11/24/2018 6:38 AM PDT HISTORY:Cough. Question pneumonia. | | COMPARISON:04/22/14. TECHNIQUE:AP portable film of the chest at 054 100/,. And 316 hours | | FINDINGS:Pulmonary venous congestion and interstitial prominence suggesting interstitial | | edema. Increasing small left effusion. Lower lung volumes. ET tube, NG tube, left | | subclavian Mediport, right IJ sheath again noted. Addition of a central venous catheter | | into the right IJ sheath with tip at the sinoatrial junction. No pneumothorax. Right | | PICC line unchanged. IMPRESSION: 1. Worsening CHF with evolving pulmonary edema, and | | increasing small left effusion.2. Addition of right IJ central line tip at the | | sinoatrial junction.3. Otherwise unchanged tubes and lines.4. No pneumothorax. | | | |Pulmonary venous congestion and interstitial prominence suggesting interstitial edema. Incr easing small left effusion. Lower lung volumes. ET tube, NG tube, left subclavian Mediport, right IJ sheath again noted. | |Addition of a central venous catheter into | | the right IJ sheath with tip at the sinoatrial junction. No pneumothorax. Right PICC line unchanged. | | | |IMPRESSION: | |1. Worsening CHF with evolving pulmonary edema, and increasing small left effusion. | |2. Addition of right IJ central line tip at the sinoatrial junction. | |3. Otherwise unchanged tubes and lines. | |4. No pneumothorax. | | | | | + + POC Glucose (04/23/2014 4:15 AM PST) + + + + + + | Component | Value | Ref Range | Performed | Pathologist | | | | | At | Signature | + + + + + + | Glucose, | 132 (H)Comment: Testing | 65 - 99 mg/dL | EXTERNAL | | | Fingerstick | performed at [facility];[address] | | LAB | | | | [address];[place], [place] | | | | | | [address] | | | | + + + + + + + + | Specimen | + + | | + + + +---------+ + + | Performing | Address | City/State/Zipcode | Phone Number | | Organization | | | | + +---------+ + + | EXTERNAL LAB | | | | + +---------+ + + Lactic Acid (04/23/2014 3:56 AM PST) + + + + + + | Component | Value | Ref Range | Performed | Pathologist | | | | | At | Signature | + + + + + + | Lactate | 4.6 (H)Comment: Testing | 0.4 - 2.0 | EXTERNAL | | | | performed at [facility];[address] | mmol/L | LAB | | | | [address];[place], [place] | | | | | | [address] | | | | + + + + + + + + | Specimen | + + | Blood specimen | | (specimen) | + + + +---------+ + + | Performing | Address | City/State/Zipcode | Phone Number | | Organization | | | | + +---------+ + + | EXTERNAL LAB | | | | + +---------+ + + Ammonia (04/23/2014 3:56 AM PST) + + + + + + | Component | Value | Ref Range | Performed | Pathologist | | | | | At | Signature | + + + + + + | Ammonia | 29Comment: Testing | umol/L | EXTERNAL | | | | performed at [facility];[address] | | LAB | | | | [address];[place], [place] | | | | | | [address] | | | | + + + + + + + + | Specimen | + + | Blood specimen | | (specimen) | + + + +---------+ + + | Performing | Address | City/State/Zipcode | Phone Number | | Organization | | | | + +---------+ + + | EXTERNAL LAB | | | | + +---------+ + + Procalcitonin (04/23/2014 3:55 AM PST) + + + + + + | Component | Value | Ref Range | Performed | Pathologist | | | | | At | Signature | + + + + + + | Source | PLASMAComment: Testing | | EXTERNAL | | | | performed at [facility] | | LAB | | | | [address];[place], [place] | | | | | | [address] | | | | + + + + + + | PROCALCITON | 9.67 (H)Comment: | ng/mL | EXTERNAL | | | [...] | | | | | | at [facility];[address] [place] [address] | | | | | | [facility];[place] [address] | | | | + + + + + + + + | Specimen | + + | | + + + +---------+ + + | Performing | Address | City/State/Zipcode | Phone Number | | Organization | | | | + +---------+ + + | EXTERNAL LAB | | | | + +---------+ + + PTT (04/23/2014 3:55 AM PST) + + + + + + | Component | Value | Ref Range | Performed | Pathologist | | | | | At | Signature | + + + + + + | aPTT, | 30Comment: Testing | 23 - 32 seconds | EXTERNAL | | | Patient | performed at [facility];[address] | | LAB | | | | [address];[place] | | | | | | [address] | | | | + + + + + + + + | Specimen | + + | | + + + +---------+ + + | Performing | Address | City/State/Zipcode | Phone Number | | Organization | | | | + +---------+ + + | EXTERNAL LAB | | | | + +---------+ + + Protime INR (04/23/2014 3:55 AM PST) + + + + + [...] | | | | | performed at [facility];[address] | | | | | | [address];[place], [place] | | | | | | [address] | | | | + + + + + + + + | Specimen | + + | Blood specimen | | (specimen) | + + + +---------+ + + | Performing | Address | City/State/Zipcode | Phone Number | | Organization | | | | + +---------+ + + | EXTERNAL LAB | | | | + +---------+ + + Fibrinogen (04/23/2014 3:55 AM PST) + + + + + + | Component | Value | Ref Range | Performed | Pathologist | | | | | At | Signature | + + + + + + | Fibrinogen | 182 (L)Comment: Testing | 200 - 450 mg/dL | EXTERNAL | | | | performed at [facility];[address] | | LAB | | | | [address];[place], [place] | | | | | | [address] | | | | + + + [...] + +---------+ + + External Lab: CBC (04/23/2014 3:55 AM PST) + + + + + + | Component | Value | Ref Range | Performed | Pathologist | | | | | At | Signature | + + + + + + | WBC | 15.3 (H)Comment: Testing | 3.8 - 11.0 K/uL | EXTERNAL | | | | performed at [facility];[address] | | LAB | | | | [address];[place] | | | | | | [address] | | | | + + + + + + | Non- | 2.14 (L)Comment: Testing | 3.70 - 5.10 | EXTERNAL | | | Red Blood | performed at [facility];[address] | M/uL | LAB | | | Cells | [address];[place] | | | | | Counted | [address] | | | | + + + + + + | Hemoglobin | 6.3 (LL)Comment: CALLED | 11.3 - 15.5 | EXTERNAL | | | | NURSING BEATRICE SCOTT M | g/dL | LAB | | | | AT 0450 BY KMREAD BACK | | | | | | RESULTS VERIFIEDTesting | | | | | | performed at [facility];[address] | | | | | | [address];[place] | | | | | | [address] | | | | + + + + + + | Hematocrit, | 18.5 (LL)Comment: CALLED | 34.0 - 46.0 % | EXTERNAL | | | POC | BEATRICE ANN | | LAB | | | | M AT 0450 BY KMREAD BACK | | | | | | RESULTS VERIFIEDTesting | | | | | | performed at [facility];[address] | | | | | | [address];[place] | | | | | | [address] | | | | + + + + + + | MCV | 86.4Comment: Testing | 80.0 - 100.0 fl | EXTERNAL | | | | performed at [facility];[address] | | LAB | | | | [address];[place] | | | | | | [address] | | | | + + + + + + | MCH | 29.4Comment: Testing | 27.0 - 34.0 pg | EXTERNAL | | | | performed at [facility];[address] | | LAB | | | | [address];[place] | | | | | | [address] | | | | + + + + + + | MCHC | 34.1Comment: Testing | 32.0 - 35.5 | EXTERNAL | | | | performed at [facility];[address] | g/dL | LAB | | | | [address];[place] | | | | | | [address] | | | | + + + + + + | RDW-CV | 42.4Comment: Testing | 37 - 53 fl | EXTERNAL | | | | performed at [facility];[address] | | LAB | | | | [address];[place] | | | | | | [address] | | | | + + + + + + | Platelet | 139 (L)Comment: Testing | 150 - 400 K/uL | EXTERNAL | | | Count | performed at [facility];[address] | | LAB | | | Plasma | [address];[place] | | | | | | [address] | | | | + + + + + + | MPV | 7.3Comment: Testing | fl | EXTERNAL | | | | performed at [facility];[address] | | LAB | | | | [address];[place] | | | | | | [address] | | | | + + + + + + | Differentia | MANUALComment: Testing | | EXTERNAL | | | l Type | performed at [facility];[address] | | LAB | | | | [address];[place] | | | | | | [address] | | | | + + + + + + | Nucleated | 3 (H)Comment: Testing | /100WBC | EXTERNAL | | | Red Blood | performed at [facility];[address] | | LAB | | | Cells | [address];[place] | | | | | | [address] | | | | + + + + + + | Segmented | 85Comment: Testing | % | EXTERNAL | | | Neutrophils | performed at [facility];[address] | | LAB | | | Manual | [address];[place] | | | | | | [address] | | | | + + + + + + | % Bands | 3Comment: Testing | % | EXTERNAL | | | | performed at [facility];[address] | | LAB | | | | [address];[place] | | | | | | [address] | | | | + + + + + + | % | 1Comment: Testing | % | EXTERNAL | | | Metamyelocy | performed at [facility];[address] | | LAB | | | petros | [address];[place] | | | | | | [address] | | | | + + + + + + | Lymphocytes | 8Comment: Testing | % | EXTERNAL | | | Manual | performed at [facility];[address] | | LAB | | | | [address];[place] | | | | | | [address] | | | | + + + + + + | Monocytes | 3Comment: Testing | % | EXTERNAL | | | Manual | performed at [facility];[address] | | LAB | | | | [address];[place] | | | | | | [address] | | | | + + + + + + | Absolute | 12.9 (H)Comment: Testing | 1.9 - 7.4 K/uL | EXTERNAL | | | Neutrophils | performed at [facility];888 | | LAB | | | | [address];[place] | | | | | | [address] | | | | + + + + + + | Bands | 0.5 (H)Comment: Testing | 0 - 0.2 K/uL | EXTERNAL | | | Manual | performed at [facility];[address] | | LAB | | | | [address];[place] | | | | | | [address] | | | | + + + + + + | Absolute | 0.2 (H)Comment: Testing | K/uL | EXTERNAL | | | Metamyelocy | performed at [facility];[address] | | LAB | | | petros | [address];[place] | | | | | | [address] | | | | + + + + + + | Absolute | 1.2Comment: Testing | 1.0 - 3.9 K/uL | EXTERNAL | | | Lymphocytes | performed at [facility];[address] | | LAB | | | | [address];[place] | | | | | | [address] | | | | + + + + + + | Absolute | 0.5Comment: Testing | 0 - 0.8 K/uL | EXTERNAL | | | Monocytes | performed at [facility];[address] | | LAB | | | | [address];[place] | | | | | | [address] | | | | + + + + + + | RBC | 1+Comment: POLYNORMAL | | EXTERNAL | | | Morphology | PLT MORPHTesting | | LAB | | | | performed at [facility];[address] | | | | | | [address];[place] | | | | | | [address] | | | | | | | [...] | | + +---------+ + + Phosphorus (04/23/2014 3:55 AM PST) + + + + + + | Component | Value | Ref Range | Performed | Pathologist | | | | | At | Signature | + + + + + + | PHOSPHORUS | 6.5 (H)Comment: Testing | 2.3 - 4.8 mg/dL | EXTERNAL | | | | performed at [facility], [address] | | LAB | | | | [address], | | | | | | [place] [address] | | | | + + + + + + + + | Specimen | + + | Blood specimen | | (specimen) | + + + +---------+ + + | Performing | Address | City/State/Zipcode | Phone Number | | Organization | | | | + +---------+ + + | EXTERNAL LAB | | | | + +---------+ + + B Type Natriuretic Peptide (04/23/2014 3:55 AM PST) + + + + + + | Component | Value | Ref Range | Performed | Pathologist | | | | | At | Signature | + + + + + + | BNP | 471 (H)Comment: Testing | 0 - 100 pg/mL | EXTERNAL | | | | performed at [facility] | | LAB | | | | [address];[place] | | | | | | [address] | | | | + + + + + + + + | Specimen | + + | Blood specimen | | (specimen) | + + + +---------+ + + | Performing | Address | City/State/Zipcode | Phone Number | | Organization | | | | + +---------+ + + | EXTERNAL LAB | | | | + +---------+ + + Magnesium (04/23/2014 3:55 AM PST) + + + + + + | Component | Value | Ref Range | Performed | Pathologist | | | | | At | Signature | + + + + + + | Magnesium | 1.8Comment: Testing | 1.7 - 2.4 mg/dL | EXTERNAL | | | | performed at [facility], [address] | | LAB | | | | [address], | | | | | | [place] [address] | | | | + + + + + + + + | Specimen | + + | Blood specimen | | (specimen) | + + + +---------+ + + | Performing | Address | City/State/Zipcode | Phone Number | | Organization | | | | + +---------+ + + | EXTERNAL LAB | | | | + +---------+ + + CEA (04/23/2014 3:55 AM PST) + + + + + + | Component | Value | Ref Range | Performed | Pathologist | | | | | At | Signature | + + + + + + | CEA, Fluid | 2.0Comment: | 0.0 - 2.5 ng/mL | EXTERNAL | | | | NONSMOKERS | | LAB | | | | SMOKERS0.5-2.5 ng/mL | | | | | | 98.2% | | | | | | 87.3%2.6-5.0 ng/mL | | | | | | 1.8% | | | | | | 8.0%5.1-10.0 ng/mL | | | | | | 0.0% | | | | | | 4.7%Testing performed | | | | | | at [facility], [address] | | | | | | [address], | | | | | | [place] [address] | | | | + + + + + + + + | Specimen | + + | Blood specimen | | (specimen) | + + + +---------+ + + | Performing | Address | City/State/Zipcode | Phone Number | | Organization | | | | + +---------+ + + | EXTERNAL LAB | | | | + +---------+ + + Hepatic Function Panel (04/23/2014 3:55 AM PST) + + + + + + | Component | Value | Ref Range | Performed | Pathologist | | | | | At | Signature | + + + + + + | Protein, | 3.8 (L)Comment: Testing | 6.3 - 8.2 g/dL | EXTERNAL | | | Total | performed at [facility], [address] | | LAB | | | | [address], | | | | | | [place] [address] | | | | + + + + + + | Albumin | 2.3 (L)Comment: Testing | 3.6 - 5.0 g/dL | EXTERNAL | | | | performed at [facility], [address] | | LAB | | | | [address], | | | | | | [place] [address] | | | | + + + + + + | Bilirubin | 1.0Comment: Testing | 0.1 - 1.5 mg/dL | EXTERNAL | | | Total | performed at [facility], [address] | | LAB | | | | [address], | | | | | | [place] [address] | | | | + + + + + + | Bilirubin | 0.4 (H)Comment: Testing | 0.0 - 0.3 mg/dL | EXTERNAL | | | Direct | performed at [facility], [address] | | LAB | | | | [address], | | | | | | [place] [address] | | | | + + + + + + | ALP, | 44Comment: Testing | 35 - 115 U/L | EXTERNAL | | | External | performed at [facility], [address] | | LAB | | | | [address], | | | | | | [place] [address] | | | | + + + + + + | AST | 1,692 (H)Comment: | 10 - 45 U/L | EXTERNAL | | | | Testing performed at | | LAB | | | | [facility], [address] | | | | | | [place] | | | | | | [address] | | | | + + + + + + | ALT | 901 (H)Comment: Testing | 10 - 65 U/L | EXTERNAL | | | | performed at [facility], [address] | | LAB | | | | [address], | | | | | | [place] [address] | | | | + + + + + + + + | Specimen | + + | | + + + +---------+ + + | Performing | Address | City/State/Zipcode | Phone Number | | Organization | | | | + +---------+ + + | EXTERNAL LAB | | | | + +---------+ + + Basic Metabolic Panel (04/23/2014 3:55 AM PST) + + + + + + | Component | Value | Ref Range | Performed | Pathologist | | | | | At | Signature | + + + + + + | Na | 147 (H)Comment: Testing | 135 - 143 | EXTERNAL | | | | performed at [facility], [address] | mmol/L | LAB | | | | [address], | | | | | | [place] [address] | | | | + + + + + + | K | 3.7Comment: Testing | 3.5 - 4.9 | EXTERNAL | | | | performed at [facility], [address] | mmol/L | LAB | | | | [address], | | | | | | [place] [address] | | | | + + + + + + | Cl | 113 (H)Comment: Testing | 99 - 109 mmol/L | EXTERNAL | | | | performed at [facility], [address] | | LAB | | | | [address], | | | | | | [place] [address] | | | | + + + + + + | CO2 | 28Comment: Testing | 23 - 32 mmol/L | EXTERNAL | | | | performed at [facility], [address] | | LAB | | | | [address], | | | | | | [place] [address] | | | | + + + + + + | Anion Gap | 10Comment: Testing | 5 - 20 mmol/L | EXTERNAL | | | | performed at [facility], [address] | | LAB | | | | [address], | | | | | | [place] [address] | | | | + + + + + + | Glucose, | 146 (H)Comment: Testing | 65 - 99 mg/dL | EXTERNAL | | | Fasting | performed at [facility], [address] | | LAB | | | | [address], | | | | | | [place] [address] | | | | + + + + + + | BUN | 37 (H)Comment: Testing | 8 - 25 mg/dL | EXTERNAL | | | | performed at [facility], [address] | | LAB | | | | [address], | | | | | | [place] [address] | | | | + + + + + + | Creatinine | 1.21 (H)Comment: Testing | 0.50 - 1.00 | EXTERNAL | | | | performed at [facility], [address] | mg/dL | LAB | | | | [address], | | | | | | [place] [address] | | | | + + + + + + | BUN/Creatin | 31Comment: Testing | | EXTERNAL | | | ine Ratio | performed at [facility], [address] | | LAB | | | | [address], | | | | | | [place] [address] | | | | + + + + + + | Calcium | 7.9 (L)Comment: Testing | 8.5 - 10.2 | EXTERNAL | | | | performed at [facility], [address] | mg/dL | LAB | | | | [address], | | | | | | [place] [address] | | | | + + + + + + | Estimated | 49 (L)Comment: GFR <60: | mL/min/1.73m2 | EXTERNAL | [...] | | | | | | at [facility], [address] | | | | | | [address], | | | | | | [place] [address] | | | | + + + [...] + +---------+ + + External Lab: CBC (04/23/2014 2:39 AM PST) + + + + + + | Component | Value | Ref Range | Performed | Pathologist | | | | | At | Signature | + + + + + + | WBC | 14.5 (H)Comment: Testing | 3.8 - 11.0 K/uL | EXTERNAL | | | | performed at [facility];[address] | | LAB | | | | [address];[place] | | | | | | [address] | | | | + + + + + + | Non- | 3.39 (L)Comment: Testing | 3.70 - 5.10 | EXTERNAL | | | Red Blood | performed at [facility];888 | M/uL | LAB | | | Cells | [address];[place] | | | | | Counted | [address] | | | | + + + + + + | Hemoglobin | 9.6 (L)Comment: Testing | 11.3 - 15.5 | EXTERNAL | | | | performed at [facility];888 | g/dL | LAB | | | | [address];[place] | | | | | | [address] | | | | + + + + + + | Hematocrit, | 29.4 (L)Comment: Testing | 34.0 - 46.0 % | EXTERNAL | | | POC | performed at [facility];[address] | | LAB | | | | [address];[place] | | | | | | [address] | | | | + + + + + + | MCV | 86.8Comment: Testing | 80.0 - 100.0 fl | EXTERNAL | | | | performed at [facility];[address] | | LAB | | | | [address];[place] | | | | | | [address] | | | | + + + + + + | MCH | 28.2Comment: Testing | 27.0 - 34.0 pg | EXTERNAL | | | | performed at [facility];[address] | | LAB | | | | [address];[place] | | | | | | [address] | | | | + + + + + + | MCHC | 32.5Comment: Testing | 32.0 - 35.5 | EXTERNAL | | | | performed at [facility];888 | g/dL | LAB | | | | [address];[place] | | | | | | [address] | | | | + + + + + + | RDW-CV | 42.4Comment: Testing | 37 - 53 fl | EXTERNAL | | | | performed at [facility];[address] | | LAB | | | | [address];[place] | | | | | | [address] | | | | + + + + + + | Platelet | 57 (L)Comment: Testing | 150 - 400 K/uL | EXTERNAL | | | Count | performed at [facility];[address] | | LAB | | | Plasma | [address];[place] | | | | | | [address] | | | | + + + + + + | MPV | 8.8Comment: Testing | fl | EXTERNAL | | | | performed at [facility];[address] | | LAB | | | | [address];[place] | | | | | | [address] | | | | + + + + + + | Differentia | MANUALComment: Testing | | EXTERNAL | | | l Type | performed at [facility];[address] | | LAB | | | | [address];[place] | | | | | | [address] | | | | + + + + + + | Nucleated | 2 (H)Comment: Testing | /100WBC | EXTERNAL | | | Red Blood | performed at [facility];[address] | | LAB | | | Cells | [address];[place] | | | | | | [address] | | | | + + + + + + | Segmented | 76Comment: Testing | % | EXTERNAL | | | Neutrophils | performed at [facility];[address] | | LAB | | | Manual | [address];[place] | | | | | | [address] | | | | + + + + + + | % Bands | 10Comment: Testing | % | EXTERNAL | | | | performed at [facility];[address] | | LAB | | | | [address];[place] | | | | | | [address] | | | | + + + + + + | % | 2Comment: Testing | % | EXTERNAL | | | Metamyelocy | performed at [facility];[address] | | LAB | | | petros | [address];[place] | | | | | | [address] | | | | + + + + + + | Lymphocytes | 9Comment: Testing | % | EXTERNAL | | | Manual | performed at [facility];[address] | | LAB | | | | [address];[place] | | | | | | [address] | | | | + + + + + + | Monocytes | 3Comment: Testing | % | EXTERNAL | | | Manual | performed at [facility];[address] | | LAB | | | | [address];[place] | | | | | | [address] | | | | + + + + + + | Absolute | 11.0 (H)Comment: Testing | 1.9 - 7.4 K/uL | EXTERNAL | | | Neutrophils | performed at [facility];[address] | | LAB | | | | [address];[place] | | | | | | [address] | | | | + + + + + + | Bands | 1.5 (H)Comment: Testing | 0 - 0.2 K/uL | EXTERNAL | | | Manual | performed at [facility];[address] | | LAB | | | | [address];[place] | | | | | | [address] | | | | + + + + + + | Absolute | 0.3 (H)Comment: Testing | K/uL | EXTERNAL | | | Metamyelocy | performed at [facility];[address] | | LAB | | | petros | [address];[place] | | | | | | [address] | | | | + + + + + + | Absolute | 1.3Comment: Testing | 1.0 - 3.9 K/uL | EXTERNAL | | | Lymphocytes | performed at [facility];[address] | | LAB | | | | [address];[place] | | | | | | [address] | | | | + + + + + + | Absolute | 0.4Comment: Testing | 0 - 0.8 K/uL | EXTERNAL | | | Monocytes | performed at [facility];[address] | | LAB | | | | [address];[place] | | | | | | [address] | | | | + + + + + + | Platelet | DECREASEDComment: | | EXTERNAL | | | Estimate | Testing performed at | | LAB | | | | [facility];[address];[place] [address] | | | | + + + + + + | RBC | 1+Comment: POLYTesting | | EXTERNAL | | | Morphology | performed at [facility];[address] | | LAB | | | | [address];[place] | | | | | | [address] | | | | | | | [...] | + +---------+ + + POC Glucose (04/23/2014 2:30 AM PST) + + + + + + | Component | Value | Ref Range | Performed | Pathologist | | | | | At | Signature | + + + + + + | Glucose, | 188 (H)Comment: Testing | 65 - 99 mg/dL | EXTERNAL | | | Fingerstick | performed at [facility];[address] | | LAB | | | | [address];[place] | | | | | | [address] | | | | + + + + + + + + | Specimen | + + | | + + + +---------+ + + | Performing | Address | City/State/Zipcode | Phone Number | | Organization | | | | + +---------+ + + | EXTERNAL LAB | | | | + +---------+ + + POC ISTAT, CG8, Arterial (04/23/2014 1:48 AM PST) + + + + + + | Component | Value | Ref Range | Performed | Pathologist | | | | | At | Signature | + + + + + + | PH ART | 7.356Comment: Testing | 7.350 - 7.450 | EXTERNAL | | | | performed at [facility];[address] | | LAB | | | | [address];[place] | | | | | | [address] | | | | + + + + + + | PCO2 ART | 44Comment: Testing | 35 - 45 mmHg | EXTERNAL | | | | performed at [facility];[address] | | LAB | | | | [address];[place] | | | | | | [address] | | | | + + + + + + | PO2 ART | 251 (H)Comment: Testing | 80 - 105 mmHg | EXTERNAL | | | | performed at [facility];[address] | | LAB | | | | [address];[place] | | | | | | [address] | | | | + + + + + + | HCO3 ART | 24Comment: Testing | 22 - 26 mmol/L | EXTERNAL | | | | performed at [facility];[address] | | LAB | | | | [address];[place] | | | | | | [address] | | | | + + + + + + | POC | 26Comment: Testing | 23 - 27 mEq/L | EXTERNAL | | | APPEARANCE | performed at [facility];[address] | | LAB | | | UA | [address];[place] | | | | | | [address] | | | | + + + + + + | Base | 1Comment: Testing | 0.0 - 2.0 | EXTERNAL | | | deficit | performed at [facility];[address] | mmol/L | LAB | | | | [address];[place] | | | | | | [address] | | | | + + + + + + | O2 SAT ART | 100 (H)Comment: Testing | 95 - 98 % | EXTERNAL | | | | performed at [facility];[address] | | LAB | | | | [address];[place] | | | | | | [address] | | | | + + + + + + | Sodium, POC | 146 (H)Comment: Testing | 135 - 145 mEq/L | EXTERNAL | | | | performed at [facility];[address] | | LAB | | | | [address];[place] | | | | | | [address] | | | | + + + + + + | Potassium, | 4.5Comment: Testing | 3.5 - 5.0 mEq/L | EXTERNAL | | | POC | performed at [facility];[address] | | LAB | | | | [address];[place] | | | | | | [address] | | | | + + + + + + | Ionized | 0.91 (L)Comment: Testing | 1.12 - 1.32 | EXTERNAL | | | Calcium, | performed at [facility];888 | mmol/L | LAB | | | POC | [address];[place] | | | | | | [address] | | | | + + + + + + | Glucose, | 232 (H)Comment: Testing | 65 - 99 mg/dL | EXTERNAL | | | POC | performed at [facility];[address] | | LAB | | | | [address];[place] | | | | | | [address] | | | | + + + + + + | Hematocrit, | 32 (L)Comment: Testing | 35.0 - 46.0 % | EXTERNAL | | | POC | performed at [facility];[address] | | LAB | | | | [address];[place] | | | | | | [address] | | | | + + + + + + | Hemoglobin, | 10.9 (L)Comment: Testing | 11.6 - 15.5 | EXTERNAL | | | POC | performed at [facility];888 | g/dL | LAB | | | | [address];[place] | | | | | | [address] | | | | + + + + + + + + | Specimen | + + | | + + + +---------+ + + | Performing | Address | City/State/Zipcode | Phone Number | | Organization | | | | + +---------+ + + | EXTERNAL LAB | | | | + +---------+ + + Troponin I (04/23/2014 1:24 AM PST) + + + + + + | Component | Value | Ref Range | Performed | Pathologist | | | | | At | Signature | + + + + + + | Troponin I, | 2.79 ()Comment: 0.00 | 0.00 - 0.10 | EXTERNAL | | | Qual | to 0.10 CONSISTENT | ng/mL | LAB | | | | WITH NORMAL | | | | | | POPULATION0.11 to 0.60 | | | | | | CONSISTENT WITH | | | | | | INCREASED RISK FOR | | | | | | ADVERSE OUTCOMES> 0.60 | | | | | | CONSISTENT | | | | | | WITH WHO CRITERIA FOR | | | | | | ACUTE [place] CKTRP PHONED TO | | | | | | RUDI Patiño AT [address]339 BY | | | | | | [employer]JREAD BACK RESULTS | | | | | | VERIFIEDTesting | | | | | | performed at [facility];[address] | | | | | | [address];[place], [place] | | | | | | [address] | | | | + + + [...] + +---------+ + + External Lab: CBC (04/23/2014 1:24 AM PST) + + + + + + | Component | Value | Ref Range | Performed | Pathologist | | | | | At | Signature | + + + + + + | WBC | 31.4 (HH)Comment: CALLED | 3.8 - 11.0 K/uL | EXTERNAL | | | | NURSING CHRISTINE MERCHANT | | LAB | | | | M AT 0145 BY [email or web address] BACK | | | | | | RESULTS VERIFIEDTesting | | | | | | performed at [facility];[address] | | | | | | [address];[place] | | | | | | [address] | | | | + + + + + + | Non- | 3.32 (L)Comment: Testing | 3.70 - 5.10 | EXTERNAL | | | Red Blood | performed at [facility];888 | M/uL | LAB | | | Cells | [address];[place] | | | | | Counted | [address] | | | | + + + + + + | Hemoglobin | 9.7 (L)Comment: Testing | 11.3 - 15.5 | EXTERNAL | | | | performed at [facility];888 | g/dL | LAB | | | | [address];[place] | | | | | | [address] | | | | + + + + + + | Hematocrit, | 29.3 (L)Comment: Testing | 34.0 - 46.0 % | EXTERNAL | | | POC | performed at [facility];[address] | | LAB | | | | [address];[place] | | | | | | [address] | | | | + + + + + + | MCV | 88.5Comment: Testing | 80.0 - 100.0 fl | EXTERNAL | | | | performed at [facility];[address] | | LAB | | | | [address];[place] | | | | | | [address] | | | | + + + + + + | MCH | 29.1Comment: Testing | 27.0 - 34.0 pg | EXTERNAL | | | | performed at [facility];[address] | | LAB | | | | [address];[place] | | | | | | [address] | | | | + + + + + + | MCHC | 32.9Comment: Testing | 32.0 - 35.5 | EXTERNAL | | | | performed at [facility];888 | g/dL | LAB | | | | [address];[place] | | | | | | [address] | | | | + + + + + + | RDW-CV | 45.9Comment: Testing | 37 - 53 fl | EXTERNAL | | | | performed at [facility];[address] | | LAB | | | | [address];[place] | | | | | | [address] | | | | + + + + + + | Platelet | 155Comment: Testing | 150 - 400 K/uL | EXTERNAL | | | Count | performed at [facility];[address] | | LAB | | | Plasma | [address];[place] | | | | | | [address] | | | | + + + + + + | MPV | 8.4Comment: Testing | fl | EXTERNAL | | | | performed at [facility];[address] | | LAB | | | | [address];[place] | | | | | | [address] | | | | + + + + + + | Differentia | MANUALComment: Testing | | EXTERNAL | | | l Type | performed at [facility];[address] | | LAB | | | | [address];[place] | | | | | | [address] | | | | + + + + + + | Nucleated | 2 (H)Comment: Testing | /100WBC | EXTERNAL | | | Red Blood | performed at [facility];[address] | | LAB | | | Cells | [address];[place] | | | | | | [address] | | | | + + + + + + | Segmented | 69Comment: Testing | % | EXTERNAL | | | Neutrophils | performed at [facility];[address] | | LAB | | | Manual | [address];[place] | | | | | | [address] | | | | + + + + + + | % Bands | 7Comment: Testing | % | EXTERNAL | | | | performed at [facility];[address] | | LAB | | | | [address];[place] | | | | | | [address] | | | | + + + + + + | % | 4Comment: Testing | % | EXTERNAL | | | Metamyelocy | performed at [facility];[address] | | LAB | | | petros | [address];[place] | | | | | | [address] | | | | + + + + + + | % | 2Comment: Testing | % | EXTERNAL | | | Myelocytes | performed at [facility];[address] | | LAB | | | | [address];[place] | | | | | | [address] | | | | + + + + + + | Lymphocytes | 10Comment: Testing | % | EXTERNAL | | | Manual | performed at [facility];[address] | | LAB | | | | [address];[place] | | | | | | [address] | | | | + + + + + + | Monocytes | 8Comment: Testing | % | EXTERNAL | | | Manual | performed at [facility];[address] | | LAB | | | | [address];[place] | | | | | | [address] | | | | + + + + + + | Absolute | 21.7 (H)Comment: Testing | 1.9 - 7.4 K/uL | EXTERNAL | | | Neutrophils | performed at [facility];[address] | | LAB | | | | [address];[place] | | | | | | [address] | | | | + + + + + + | Bands | 2.2 (H)Comment: Testing | 0 - 0.2 K/uL | EXTERNAL | | | Manual | performed at [facility];[address] | | LAB | | | | [address];[place] | | | | | | [address] | | | | + + + + + + | Absolute | 1.3 (H)Comment: Testing | K/uL | EXTERNAL | | | Metamyelocy | performed at [facility];[address] | | LAB | | | [address] | [address];[place] | | | | | | [address] | | | | + + + + + + | Absolute | 0.6 (H)Comment: Testing | K/uL | EXTERNAL | | | Myelocytes | performed at [facility];[address] | | LAB | | | | [address];[place] | | | | | | [address] | | | | + + + + + + | Absolute | 3.1Comment: Testing | 1.0 - 3.9 K/uL | EXTERNAL | | | Lymphocytes | performed at [facility];[address] | | LAB | | | | [address];[place] | | | | | | [address] | | | | + + + + + + | Absolute | 2.5 (H)Comment: Testing | 0 - 0.8 K/uL | EXTERNAL | | | Monocytes | performed at [facility];[address] | | LAB | | | | [address];[place] | | | | | | [address] | | | | + + + + + + | RBC | 1+Comment: POLYNORMAL | | EXTERNAL | | | Morphology | PLT MORPHTesting | | LAB | | | | performed at [facility];[address] | | | | | | [address];[place] | | | | | | [address] | | | | | | | [...] | | | + +---------+ + + Lactic Acid (04/23/2014 1:24 AM PST) + + + + + + | Component | Value | Ref Range | Performed | Pathologist | | | | | At | Signature | + + + + + + | Lactate | 6.7 (H)Comment: Testing | 0.4 - 2.0 | EXTERNAL | | | | performed at [facility];[address] | mmol/L | LAB | | | | [address];[place], [place] | | | | | | [address] | | | | + + + + + + + + | Specimen | + + | Blood specimen | | (specimen) | + + + +---------+ + + | Performing | Address | City/State/Zipcode | Phone Number | | Organization | | | | + +---------+ + + | EXTERNAL LAB | | | | + +---------+ + + POC GINNY CG8, Arterial (04/23/2014 12:14 AM PST) + + + + + + | Component | Value | Ref Range | Performed | Pathologist | | | | | At | Signature | + + + + + + | FiO2, POC | 40Comment: Testing | % | EXTERNAL | | | | performed at [facility];[address] | | LAB | | | | [address];[place] | | | | | | [address] | | | | + + + + + + | PH ART | 7.438Comment: Testing | 7.350 - 7.450 | EXTERNAL | | | | performed at [facility];[address] | | LAB | | | | [address];[place] | | | | | | [address] | | | | + + + + + + | PCO2 ART | 31 (L)Comment: Testing | 35 - 45 mmHg | EXTERNAL | | | | performed at [facility];[address] | | LAB | | | | [address];[place] | | | | | | [address] | | | | + + + + + + | PO2 ART | 115 (H)Comment: Testing | 80 - 105 mmHg | EXTERNAL | | | | performed at [facility] | | LAB | | | | [address];[place] | | | | | | [address] | | | | + + + + + + | HCO3 ART | 21 (L)Comment: Testing | 22 - 26 mmol/L | EXTERNAL | | | | performed at [facility];[address] | | LAB | | | | [address];[place] | | | | | | [address] | | | | + + + + + + | POC | 22 (L)Comment: Testing | 23 - 27 mEq/L | EXTERNAL | | | APPEARANCE | performed at [facility];[address] | | LAB | | | UA | [address];[place] | | | | | | [address] | | | | + + + + + + | Base | 3 (H)Comment: Testing | 0.0 - 2.0 | EXTERNAL | | | deficit | performed at [facility];[address] | mmol/L | LAB | | | | [address];[place] | | | | | | [address] | | | | + + + + + + | O2 SAT ART | 99 (H)Comment: Testing | 95 - 98 % | EXTERNAL | | | | performed at [facility];[address] | | LAB | | | | [address];[place] | | | | | | [address] | | | | + + + + + + | Sodium, POC | 149 (H)Comment: Testing | 135 - 145 mEq/L | EXTERNAL | | | | performed at [facility];[address] | | LAB | | | | [address];[place] | | | | | | [address] | | | | + + + + + + | Potassium, | 4.3Comment: Testing | 3.5 - 5.0 mEq/L | EXTERNAL | | | POC | performed at [facility];[address] | | LAB | | | | [address];[place] | | | | | | [address] | | | | + + + + + + | Ionized | 0.98 (L)Comment: Testing | 1.12 - 1.32 | EXTERNAL | | | Calcium, | performed at [facility];[address] | mmol/L | LAB | | | POC | [address];[place] | | | | | | [address] | | | | + + + + + + | Glucose, | 52 (L)Comment: Testing | 65 - 99 mg/dL | EXTERNAL | | | POC | performed at [facility];[address] | | LAB | | | | [address];[place] | | | | | | [address] | | | | + + + + + + | Hematocrit, | 23 (LL)Comment: Testing | 35.0 - 46.0 % | EXTERNAL | | | POC | performed at [facility];[address] | | LAB | | | | [address];[place] | | | | | | [address] | | | | + + + + + + | Hemoglobin, | 7.8 (LL)Comment: Testing | 11.6 - 15.5 | EXTERNAL | | | POC | performed at [facility];[address] | g/dL | LAB | | | | [address];[place] | | | | | | [address] | | | | + + + + + + | Comment, | Tidal Volume = | | EXTERNAL | | | POC | 460Comment: Peep = 8Resp | | LAB | | | | Rate = 16Testing | | | | | | performed at [facility];[address] | | | | | | [address];[place] | | | | | | [address] | | | | + + + + + + + + | Specimen | + + | | + + + +---------+ + + | Performing | Address | City/State/Zipcode | Phone Number | | Organization | | | | + +---------+ + + | EXTERNAL LAB | | | | + +---------+ + + POC Glucose (04/22/2014 11:57 PM PST) + + + + + + | Component | Value | Ref Range | Performed | Pathologist | | | | | At | Signature | + + + + + + | Glucose, | 73Comment: Testing | 65 - 99 mg/dL | EXTERNAL | | | Fingerstick | performed at [facility];[address] | | LAB | | | | [address];[place], [place] | | | | | | [address] | | | | + + + + + + + + | Specimen | + + | | + + + +---------+ + + | Performing | Address | City/State/Zipcode | Phone Number | | Organization | | | | + +---------+ + + | EXTERNAL LAB | | | | + +---------+ + + CT Head wo Contrast (04/22/2014 11:49 PM PST) + + | Specimen | + + | | + + + + + | Impressions | Performed At | + + + | 1. No acute intracranial pathology. | | + + + + + + | Narrative | Performed At | + + + | [facility] [address] HEAD WO CONTRAST | | | 04/22/2014 11:49 PM INDICATION: Rule out intracranial hemorrhage. | | | COMPARISON: Head CT dated 04/19/14. TECHNIQUE: CT scan of the | | | head without contrast. 5-mm axial noncontrast images were acquired | | | from the foramen magnum through the cranial vertex. FINDINGS: No | | | intracranial hemorrhage, hydrocephalus, or mass is identified. No | | | paranasal sinus disease or significant mastoid fluid is found. There | | | is partial visualization of a nasogastric tube and endotracheal tube. | | | | | + + + + + | Procedure Note | + + | Tez Roper Conversion - 11/24/2018 6:38 AM PDT MACKENZIE [id number] years FemaleCT | | HEAD WO CONTRAST04/22/2014 11:49 PM INDICATION: Rule out intracranial hemorrhage. | | COMPARISON: Head CT dated 04/19/14. TECHNIQUE: CT scan of the head without contrast. 5-mm | | axial noncontrast images were acquired from the foramen magnum through the cranial | | vertex. FINDINGS: No intracranial hemorrhage, hydrocephalus, or mass is identified. No | | paranasal sinus disease or significant mastoid fluid is found. There is partial | | visualization of a nasogastric tube and endotracheal tube. IMPRESSION: 1. No acute | | intracranial pathology. | | PM | | | |TECHNIQUE: CT scan of the head without contrast. 5-mm axial noncontrast images were acquir ed from the foramen magnum through the cranial vertex. | | | |FINDINGS: No intracranial hemorrhage, hydrocephalus, or mass is identified. No paranasal si nus disease or significant mastoid fluid is found. There is partial visualization of a nasog astric tube and endotracheal tube. | | | |IMPRESSION: | |1. No acute intracranial pathology. | | | | | + + CT Chest Abdomen Pelvis wo Contrast (04/22/2014 11:49 PM PST) + + | Specimen | + + | | + + + + + | Impressions | Performed At | + + + | 1. Large left retroperitoneal hematoma, as above. 2. | | | Moderate left iliacus muscle hematoma. 3. Moderate bilateral | | | layering pleural effusions with increasing bilateral lower lobe | | | subsegmental atelectasis. 4. Mild nonspecific patchy airspace | | | disease in the aerated portions of the lungs. Electronically | | | signed by Grabiel Bai MD on 04/23/2014 12:13 AM | | + + + + + + | Narrative | Performed At | + + + | MACKENZIE ODILIA CT CHEST ABDOMEN PELVIS WO CONTRAST 04/22/2014 11:49 PM | | | HISTORY: Reported internal bleeding. Pneumonia, respiratory | | | failure, without ectasia, and aspiration pneumonia. Cranial increasing | | | with urine output significantly decreasing. TECHNIQUE: Helically | | | obtained axial 2/[address] sections through the chest, abdomen, and | | | pelvis with COMPARISON: Abdominal ultrasound April 22, 2014. | | | Abdomen and pelvis CT dated April 06, 2014. Chest radiographs, the | | | most recent dated 04/22/14. FINDINGS: Chest: Increasing current | | | moderate sized layering bilateral pleural effusions are noted, with | | | associated increasing bilateral lower lobe subsegmental atelectasis. | | | Patchy mild bilateral airspace disease is seen in the upper lobes | | | greater than the lower lobes and right middle lobe. No pneumothorax | | | is identified. The well-positioned life support lines and tubes are | | | unchanged. No cardiomegaly is found. No pathologically enlarged lymph | | | nodes are identified. A small ventral hernia is noted. A left-sided | | | chest port and catheter are again seen. Abdomen/pelvis: The | | | nasogastric tube is unchanged and well-positioned. The liver appears | | | normal. Cholecystectomy clips are observed. The pancreas, kidneys, and | | | adrenal glands are morphologically normal, but displaced to the right | | | due to a large left retroperitoneal mixed attenuation probable | | | hematoma, measuring 39 cm greatest craniocaudal dimension by 19 cm | | | greatest transverse dimension by 14 cm greatest AP dimension. A | | | probable hematoma also involves the left iliacus muscle, measuring 9 x | | | 5 x 9 cm. The urinary bladder is nondistended due to an indwelling | | | Wolf catheter. No definitive ureteral stones are found. Moderate | | | atherosclerotic calcification is present within the abdominal aorta | | | and its branches. No free intraperitoneal air is found. No | | | worrisome bone lesions are noted. No pathologically enlarged lymph | | | nodes are seen. No dilated bowel loops are found. | | + + + + + | Procedure Note | + + | Judson, Rad Conversion - 11/24/2018 6:38 AM PDT MACKENZIEHilario HARTLEYCT CHEST ABDOMEN PELVIS WO | | CONTRAST04/22/2014 11:49 PM HISTORY:Reported internal bleeding. Pneumonia, respiratory | | failure, without ectasia, and aspiration pneumonia. Cranial increasing with urine output | | significantly decreasing. TECHNIQUE:Helically obtained axial 2/[address] sections through | | the chest, abdomen, and pelvis with COMPARISON:Abdominal ultrasound April 22, 2014. | | Abdomen and pelvis CT dated April 06, 2014. Chest radiographs, the most recent dated | | 04/22/14. FINDINGS:Chest: Increasing current moderate sized layering bilateral pleural | | effusions are noted, with associated increasing bilateral lower lobe subsegmental | | atelectasis. Patchy mild bilateral airspace disease is seen in the upper lobes greater | | than the lower lobes and right middle lobe. No pneumothorax is identified. The | | well-positioned life support lines and tubes are unchanged. No cardiomegaly is found. No | | pathologically enlarged lymph nodes are identified. A small ventral hernia is noted. A | | left-sided chest port and catheter are again seen. Abdomen/pelvis: The nasogastric tube | | is unchanged and well-positioned. The liver appears normal. Cholecystectomy clips are | | observed. The pancreas, kidneys, and adrenal glands are morphologically normal, but | | displaced to the right due to a large left retroperitoneal mixed attenuation probable | | hematoma, measuring 39 cm greatest craniocaudal dimension by 19 cm greatest transverse | | dimension by 14 cm greatest AP dimension. A probable hematoma also involves the left | | iliacus muscle, measuring 9 x 5 x 9 cm. The urinary bladder is nondistended due to an | | indwelling Wolf catheter. No definitive ureteral stones are found. Moderate | | atherosclerotic calcification is present within the abdominal aorta and its branches. No | | free intraperitoneal air is found. No worrisome bone lesions are noted. No | | pathologically enlarged lymph nodes are seen. No dilated bowel loops are found. | | IMPRESSION: 1. Large left retroperitoneal hematoma, as above. 2. Moderate left iliacus | | muscle hematoma. 3. Moderate bilateral layering pleural effusions with increasing | | bilateral lower lobe subsegmental atelectasis. 4. Mild nonspecific patchy airspace | | disease in the aerated portions of the lungs. | |1. Large left retroperitoneal hematoma, as above. | | | |2. Moderate left iliacus muscle hematoma. | | | |3. Moderate bilateral layering pleural effusions with increasing bilateral lower lobe subs egmental atelectasis. | | | |4. Mild nonspecific patchy airspace disease in the aerated portions of the lungs. | | | | | + + POC Glucose (04/22/2014 9:44 PM PST) + + + + + + | Component | Value | Ref Range | Performed | Pathologist | | | | | At | Signature | + + + + + + | Glucose, | 52 (L)Comment: Testing | 65 - 99 mg/dL | EXTERNAL | | | Fingerstick | performed at [facility];[address] | | LAB | | | | [address];[place] | | | | | | [address] | | | | + + + + + + + + | Specimen | + + | | + + + +---------+ + + | Performing | Address | City/State/Zipcode | Phone Number | | Organization | | | | + +---------+ + + | EXTERNAL LAB | | | | + +---------+ + + POC Glucose (04/22/2014 9:40 PM PST) + + + + + + | Component | Value | Ref Range | Performed | Pathologist | | | | | At | Signature | + + + + + + | Glucose, | 44 (L)Comment: Testing | 65 - 99 mg/dL | EXTERNAL | | | Fingerstick | performed at [facility];[address] | | LAB | | | | [address];[place] | | | | | | [address] | | | | + + + + + + + + | Specimen | + + | | + + + +---------+ + + | Performing | Address | City/State/Zipcode | Phone Number | | Organization | | | | + +---------+ + + | EXTERNAL LAB | | | | + +---------+ + + Lactic Acid (04/22/2014 8:43 PM PST) + + + + + + | Component | Value | Ref Range | Performed | Pathologist | | | | | At | Signature | + + + + + + | Lactate | 5.5 (H)Comment: Testing | 0.4 - 2.0 | EXTERNAL | | | | performed at [facility];[address] | mmol/L | LAB | | | | [address];[place], [place] | | | | | | [address] | | | | + + + + + + + + | Specimen | + + | Blood specimen | | (specimen) | + + + +---------+ + + | Performing | Address | City/State/Zipcode | Phone Number | | Organization | | | | + +---------+ + + | EXTERNAL LAB | | | | + +---------+ + + Ammonia (04/22/2014 8:43 PM PST) + + + + + + | Component | Value | Ref Range | Performed | Pathologist | | | | | At | Signature | + + + + + + | Ammonia | 55 (H)Comment: Testing | umol/L | EXTERNAL | | | | performed at [facility];[address] | | LAB | | | | [address];[place] | | | | | | [address] | | | | + + + + + + + + | Specimen | + + | Blood specimen | | (specimen) | + + + +---------+ + + | Performing | Address | City/State/Zipcode | Phone Number | | Organization | | | | + +---------+ + + | EXTERNAL LAB | | | | + +---------+ + + CK-MB (04/22/2014 8:25 PM PST) + + + + + -+ | Component | Value | Ref Range | Performed | Pathologist | | | | | At | Signature | + + + + + -+ | CK-MB | 2.3Comment: Testing | 0.5 - 3.6 ng/mL | EXTERNAL | | | | performed at [facility];[address] | | LAB | | | | [address];[place], [place] | | | | | | [address] | | | | + + + + + -+ | CK-MB Index | 0.7Comment: CK INDEX | | EXTERNAL | | [...] | + +---------+ + + Troponin I (04/22/2014 8:25 PM PST) + + + + + + | Component | Value | Ref Range | Performed | Pathologist | | | | | At | Signature | + + + + + + | Troponin I, | 2.61 ()Comment: 0.00 | 0.00 - 0.10 | EXTERNAL | | | Qual | to 0.10 CONSISTENT | ng/mL | LAB | | | | WITH NORMAL | | | | | | POPULATION0.11 to 0.60 | | | | | | CONSISTENT WITH | | | | | | INCREASED RISK FOR | | | | | | ADVERSE OUTCOMES> 0.60 | | | | | | CONSISTENT | | | | | | WITH WHO CRITERIA FOR | | | | | | ACUTE [place] RESULT READ | | | | | | BACK BY:NAHUN Asher/RUDI AT | | | | | | 2112 SAMTesting | | | | | | performed at [facility];[address] | | | | | | [facility];[place], [place] | | | | | | [address] | | | | + + + + + + + + | Specimen | + + | Blood specimen | | (specimen) | + + + +---------+ + + | Performing | Address | City/State/Zipcode | Phone Number | | Organization | | | | + +---------+ + + | EXTERNAL LAB | | | | + +---------+ + + PTT (04/22/2014 8:25 PM PST) + + + + + + | Component | Value | Ref Range | Performed | Pathologist | | | | | At | Signature | + + + + + + | aPTT, | 32Comment: Testing | 23 - 32 seconds | EXTERNAL | | | Patient | performed at [facility];[address] | | LAB | | | | [address];[place] | | | | | | [address] | | | | + + + + + + + + | Specimen | + + | Blood specimen | | (specimen) | + + + +---------+ + + | Performing | Address | City/State/Zipcode | Phone Number | | Organization | | | | + +---------+ + + | EXTERNAL LAB | | | | + +---------+ + + Protime INR (04/22/2014 8:25 PM PST) + + + + + + | Component | Value | Ref Range | Performed | Pathologist | | | | | At | Signature | + + + + + + | INR | 1.4Comment: REFERENCE | | [...] | | | | | performed at [facility];[address] | | | | | | [address] [facility];[place], [place] | | | | | | [address] | | | | + + + + + + + + | Specimen | + + | Blood specimen | | (specimen) | + + + +---------+ + + | Performing | Address | City/State/Zipcode | Phone Number | | Organization | | | | + +---------+ + + | EXTERNAL LAB | | | | + +---------+ + + Fibrinogen (04/22/2014 8:25 PM PST) + + + + + + | Component | Value | Ref Range | Performed | Pathologist | | | | | At | Signature | + + + + + + | Fibrinogen | 195 (L)Comment: Testing | 200 - 450 mg/dL | EXTERNAL | | | | performed at [facility];[address] | | LAB | | | | [address];[place] | | | | | | [address] | | | | + + + [...] + +---------+ + + External Lab: CBC (04/22/2014 8:25 PM PST) + + + + + + | Component | Value | Ref Range | Performed | Pathologist | | | | | At | Signature | + + + + + + | WBC | 30.8 ()Comment: RESULT | 3.8 - 11.0 K/uL | EXTERNAL | | | | READ BACK BY:NAHUN Asher | | LAB | | | | IN ICU AT [address] | | | | | | [id number] performed | | | | | | at [facility];[address];[place] [address] | | | | + + + + + + | Non- | 2.58 (L)Comment: Testing | 3.70 - 5.10 | EXTERNAL | | | Red Blood | performed at [facility];[address] | M/uL | LAB | | | Cells | [address];[place] | | | | | Counted | [address] | | | | + + + + + + | Hemoglobin | 7.3 (L)Comment: Testing | 11.3 - 15.5 | EXTERNAL | | | | performed at [facility];[address] | g/dL | LAB | | | | [address];[place] | | | | | | [address] | | | | + + + + + + | Hematocrit, | 22.1 (L)Comment: Testing | 34.0 - 46.0 % | EXTERNAL | | | POC | performed at [facility];[address] | | LAB | | | | [address];[place] | | | | | | [address] | | | | + + + + + + | MCV | 85.8Comment: Testing | 80.0 - 100.0 fl | EXTERNAL | | | | performed at [facility];[address] | | LAB | | | | [address];[place] | | | | | | [address] | | | | + + + + + + | MCH | 28.5Comment: Testing | 27.0 - 34.0 pg | EXTERNAL | | | | performed at [facility];[address] | | LAB | | | | [address];[place] | | | | | | [address] | | | | + + + + + + | MCHC | 33.2Comment: Testing | 32.0 - 35.5 | EXTERNAL | | | | performed at [facility];[address] | g/dL | LAB | | | | [address];[place] | | | | | | [address] | | | | + + + + + + | RDW-CV | 43.3Comment: Testing | 37 - 53 fl | EXTERNAL | | | | performed at [facility];[address] | | LAB | | | | [address];[place] | | | | | | [address] | | | | + + + + + + | Platelet | 197Comment: Testing | 150 - 400 K/uL | EXTERNAL | | | Count | performed at [facility];[address] | | LAB | | | Plasma | [address];[place] | | | | | | [address] | | | | + + + + + + | MPV | 7.4Comment: Testing | fl | EXTERNAL | | | | performed at [facility];[address] | | LAB | | | | [address];[place] | | | | | | [address] | | | | + + + + + + | Differentia | MANUALComment: Testing | | EXTERNAL | | | l Type | performed at [facility];[address] | | LAB | | | | [address];[place] | | | | | | [address] | | | | + + + + + + | Nucleated | 6 (H)Comment: Testing | /100WBC | EXTERNAL | | | Red Blood | performed at [facility];[address] | | LAB | | | Cells | [address];[place] | | | | | | [address] | | | | + + + + + + | Segmented | 69Comment: Testing | % | EXTERNAL | | | Neutrophils | performed at [facility];[address] | | LAB | | | Manual | [address];[place] | | | | | | [address] | | | | + + + + + + | % Bands | 7Comment: Testing | % | EXTERNAL | | | | performed at [facility];[address] | | LAB | | | | [address];[place] | | | | | | [address] | | | | + + + + + + | % | 2Comment: Testing | % | EXTERNAL | | | Metamyelocy | performed at [facility];[address] | | LAB | | | petros | [address];[place] | | | | | | [address] | | | | + + + + + + | % | 1Comment: Testing | % | EXTERNAL | | | Myelocytes | performed at [facility];[address] | | LAB | | | | [address];[place] | | | | | | [address] | | | | + + + + + + | Lymphocytes | 14Comment: Testing | % | EXTERNAL | | | Manual | performed at [facility];[address] | | LAB | | | | [address];[place] | | | | | | [address] | | | | + + + + + + | Monocytes | 6Comment: Testing | % | EXTERNAL | | | Manual | performed at [facility];[address] | | LAB | | | | [address];[place] | | | | | | [address] | | | | + + + + + + | Eosinophils | 1Comment: Testing | % | EXTERNAL | | | Manual | performed at [facility];[address] | | LAB | | | | [address];[place] | | | | | | [address] | | | | + + + + + + | Absolute | 21.3 (H)Comment: Testing | 1.9 - 7.4 K/uL | EXTERNAL | | | Neutrophils | performed at [facility];[address] | | LAB | | | | [address];[place] | | | | | | [address] | | | | + + + + + + | Bands | 2.2 (H)Comment: Testing | 0 - 0.2 K/uL | EXTERNAL | | | Manual | performed at [facility];[address] | | LAB | | | | [address];[place] | | | | | | [address] | | | | + + + + + + | Absolute | 0.6 (H)Comment: Testing | K/uL | EXTERNAL | | | Metamyelocy | performed at [facility];[address] | | LAB | | | petros | [address];[place] | | | | | | [address] | | | | + + + + + + | Absolute | 0.3 (H)Comment: Testing | K/uL | EXTERNAL | | | Myelocytes | performed at [facility];[address] | | LAB | | | | [address];[place] | | | | | | [address] | | | | + + + + + + | Absolute | 4.3 (H)Comment: Testing | 1.0 - 3.9 K/uL | EXTERNAL | | | Lymphocytes | performed at [facility];[address] | | LAB | | | | [address];[place] | | | | | | [address] | | | | + + + + + + | Absolute | 1.8 (H)Comment: Testing | 0 - 0.8 K/uL | EXTERNAL | | | Monocytes | performed at [facility];[address] | | LAB | | | | [address];[place] | | | | | | [address] | | | | + + + + + + | Absolute | 0.3Comment: Testing | 0 - 0.5 K/uL | EXTERNAL | | | Eosinophils | performed at [facility];[address] | | LAB | | | | [address];[place] | | | | | | [address] | | | | + + + + + + | Platelet | ADEQUATEComment: Testing | | EXTERNAL | | | Estimate | performed at [facility];[address] | | LAB | | | | [facility] | | | | | | [address] | | | | + + + + + + | RBC | 1+Comment: GIANT | | EXTERNAL | | | Morphology | PLATELETS1+POLYTesting | | LAB | | | | performed at [facility];[address] | | | | | | [facility] | | | | | | [address] | | | | | |Testing performed at [facility];[address] [facility];[place] [address] | | | | | | | [...] | | + +---------+ + + Magnesium (04/22/2014 8:25 PM PST) + + + + + + | Component | Value | Ref Range | Performed | Pathologist | | | | | At | Signature | + + + + + + | Magnesium | 2.0Comment: Testing | 1.7 - 2.4 mg/dL | EXTERNAL | | | | performed at [facility];[address] | | LAB | | | | [address];[place], [place] | | | | | | [address] | | | | + + + + + + + + | Specimen | + + | Blood specimen | | (specimen) | + + + +---------+ + + | Performing | Address | City/State/Zipcode | Phone Number | | Organization | | | | + +---------+ + + | EXTERNAL LAB | | | | + +---------+ + + CK Total (04/22/2014 8:25 PM PST) + + + + + + | Component | Value | Ref Range | Performed | Pathologist | | | | | At | Signature | + + + + + + | CK, Total | 326 (H)Comment: Testing | 30 - 240 U/L | EXTERNAL | | | | performed at [facility];[address] | | LAB | | | | [address];[place] | | | | | | [address] | | | | + + + [...] + +---------+ + + Basic Metabolic Panel (04/22/2014 8:25 PM PST) + + + + + + | Component | Value | Ref Range | Performed | Pathologist | | | | | At | Signature | + + + + + + | Na | 151 (H)Comment: Testing | 135 - 143 | EXTERNAL | | | | performed at [facility];[address] | mmol/L | LAB | | | | [address];[place] | | | | | | [address] | | | | + + + + + + | K | 4.0Comment: Testing | 3.5 - 4.9 | EXTERNAL | | | | performed at [facility];[address] | mmol/L | LAB | | | | [address];[place] | | | | | | [address] | | | | + + + + + + | Cl | 112 (H)Comment: Testing | 99 - 109 mmol/L | EXTERNAL | | | | performed at [facility];[address] | | LAB | | | | [address];[place] | | | | | | [address] | | | | + + + + + + | CO2 | 30Comment: Testing | 23 - 32 mmol/L | EXTERNAL | | | | performed at [facility];[address] | | LAB | | | | [address];[place] | | | | | | [address] | | | | + + + + + + | Anion Gap | 12Comment: Testing | 5 - 20 mmol/L | EXTERNAL | | | | performed at [facility];[address] | | LAB | | | | [address];[place] | | | | | | [address] | | | | + + + + + + | Glucose, | 67Comment: Testing | 65 - 99 mg/dL | EXTERNAL | | | Fasting | performed at [facility];[address] | | LAB | | | | [address];[place] | | | | | | [address] | | | | + + + + + + | BUN | 37 (H)Comment: Testing | 8 - 25 mg/dL | EXTERNAL | | | | performed at [facility];[address] | | LAB | | | | [address];[place] | | | | | | [address] | | | | + + + + + + | Creatinine | 1.34 (H)Comment: Testing | 0.50 - 1.00 | EXTERNAL | | | | performed at [facility];888 | mg/dL | LAB | | | | [address];[place] | | | | | | [address] | | | | + + + + + + | BUN/Creatin | 28Comment: Testing | | EXTERNAL | | | ine Ratio | performed at [facility];[address] | | LAB | | | | [address];[place] | | | | | | [address] | | | | + + + + + + | Calcium | 7.9 (L)Comment: Testing | 8.5 - 10.2 | EXTERNAL | | | | performed at [facility];888 | mg/dL | LAB | | | | [address];[place] | | | | | | [address] | | | | + + + + + + | Estimated | 43 (L)Comment: GFR <60: | mL/min/1.73m2 | EXTERNAL | [...] | | | | | | at [facility];[address];[place] [address] | | | | + + + + + + + + | Specimen | + + | Blood specimen | | (specimen) | + + + +---------+ + + | Performing | Address | City/State/Zipcode | Phone Number | | Organization | | | | + +---------+ + + | EXTERNAL LAB | | | | + +---------+ + + POC Glucose (04/22/2014 8:21 PM PST) + + + + + + | Component | Value | Ref Range | Performed | Pathologist | | | | | At | Signature | + + + + + + | Glucose, | 80Comment: Testing | 65 - 99 mg/dL | EXTERNAL | | | Fingerstick | performed at [facility] | | LAB | | | | [address];[place], [place] | | | | | | [address] | | | | + + + + + + + + | Specimen | + + | | + + + +---------+ + + | Performing | Address | City/State/Zipcode | Phone Number | | Organization | | | | + +---------+ + + | EXTERNAL LAB | | | | + +---------+ + + POC Glucose (04/22/2014 6:29 PM PST) + + + + + + | Component | Value | Ref Range | Performed | Pathologist | | | | | At | Signature | + + + + + + | Glucose, | 153 (H)Comment: Testing | 65 - 99 mg/dL | EXTERNAL | | | Fingerstick | performed at [facility];[address] | | LAB | | | | [address];[place], [place] | | | | | | [address] | | | | + + + + + + + + | Specimen | + + | | + + + +---------+ + + | Performing | Address | City/State/Zipcode | Phone Number | | Organization | | | | + +---------+ + + | EXTERNAL LAB | | | | + +---------+ + + POC Glucose (04/22/2014 5:50 PM PST) + + + + + + | Component | Value | Ref Range | Performed | Pathologist | | | | | At | Signature | + + + + + + | Glucose, | 63 (L)Comment: Testing | 65 - 99 mg/dL | EXTERNAL | | | Fingerstick | performed at [facility];8 | | LAB | | | | [address];[place], [place] | | | | | | [address] | | | | + + + + + + + + | Specimen | + + | | + + + +---------+ + + | Performing | Address | City/State/Zipcode | Phone Number | | Organization | | | | + +---------+ + + | EXTERNAL LAB | | | | + +---------+ + + External Lab: CBC (04/22/2014 5:32 PM PST) + + + + + + | Component | Value | Ref Range | Performed | Pathologist | | | | | At | Signature | + + + + + + | WBC | 33.5 ()Comment: RESULT | 3.8 - 11.0 K/uL | EXTERNAL | | | | READ BACK BY:NAHUN Asher | | LAB | | | | ON ICU AT [address] | | | | | | [id number] performed | | | | | | at [facility];[address] [place] [address] | | | | | | Blvd;[place] [address] | | | | + + + + + + | Non- | 2.91 (L)Comment: Testing | 3.70 - 5.10 | EXTERNAL | | | Red Blood | performed at [facility];888 | M/uL | LAB | | | Cells | [address];[place] | | | | | Counted | [address] | | | | + + + + + + | Hemoglobin | 8.4 (L)Comment: Testing | 11.3 - 15.5 | EXTERNAL | | | | performed at [facility];888 | g/dL | LAB | | | | [address];[place] | | | | | | [address] | | | | + + + + + + | Hematocrit, | 24.8 (L)Comment: Testing | 34.0 - 46.0 % | EXTERNAL | | | POC | performed at [facility];[address] | | LAB | | | | [address];[place] | | | | | | [address] | | | | + + + + + + | MCV | 85.1Comment: Testing | 80.0 - 100.0 fl | EXTERNAL | | | | performed at [facility];[address] | | LAB | | | | [address];[place] | | | | | | [address] | | | | + + + + + + | MCH | 28.9Comment: Testing | 27.0 - 34.0 pg | EXTERNAL | | | | performed at [facility];[address] | | LAB | | | | [address];[place] | | | | | | [address] | | | | + + + + + + | MCHC | 34.0Comment: Testing | 32.0 - 35.5 | EXTERNAL | | | | performed at [facility];888 | g/dL | LAB | | | | [address];[place] | | | | | | [address] | | | | + + + + + + | RDW-CV | 42.9Comment: Testing | 37 - 53 fl | EXTERNAL | | | | performed at [facility];[address] | | LAB | | | | [address];[place] | | | | | | [address] | | | | + + + + + + | Platelet | 228Comment: Testing | 150 - 400 K/uL | EXTERNAL | | | Count | performed at [facility];[address] | | LAB | | | Plasma | [address];[place] | | | | | | [address] | | | | + + + + + + | MPV | 7.2Comment: Testing | fl | EXTERNAL | | | | performed at [facility];[address] | | LAB | | | | [address];[place] | | | | | | [address] | | | | + + + + + + | Differentia | MANUALComment: Testing | | EXTERNAL | | | l Type | performed at [facility];[address] | | LAB | | | | [address];[place] | | | | | | [address] | | | | + + + + + + | Segmented | 69Comment: Testing | % | EXTERNAL | | | Neutrophils | performed at [facility];[address] | | LAB | | | Manual | [address];[place] | | | | | | [address] | | | | + + + + + + | % Bands | 14Comment: Testing | % | EXTERNAL | | | | performed at [facility];[address] | | LAB | | | | [address];[place] | | | | | | [address] | | | | + + + + + + | % | 3Comment: Testing | % | EXTERNAL | | | Metamyelocy | performed at [facility];[address] | | LAB | | | petros | [address];[place] | | | | | | [address] | | | | + + + + + + | % | 1Comment: Testing | % | EXTERNAL | | | Myelocytes | performed at [facility];[address] | | LAB | | | | [address];[place] | | | | | | [address] | | | | + + + + + + | Lymphocytes | 9Comment: Testing | % | EXTERNAL | | | Manual | performed at [facility];[address] | | LAB | | | | [address];[place] | | | | | | [address] | | | | + + + + + + | Monocytes | 4Comment: Testing | % | EXTERNAL | | | Manual | performed at [facility];[address] | | LAB | | | | [address];[place] | | | | | | [address] | | | | + + + + + + | Absolute | 23.2 (H)Comment: Testing | 1.9 - 7.4 K/uL | EXTERNAL | | | Neutrophils | performed at [facility];[address] | | LAB | | | | [address];[place] | | | | | | [address] | | | | + + + + + + | Bands | 4.7 (H)Comment: Testing | 0 - 0.2 K/uL | EXTERNAL | | | Manual | performed at [facility];[address] | | LAB | | | | [address];[place] | | | | | | [address] | | | | + + + + + + | Absolute | 1.0 (H)Comment: Testing | K/uL | EXTERNAL | | | Metamyelocy | performed at [facility];[address] | | LAB | | | petros | [address];[place] | | | | | | [address] | | | | + + + + + + | Absolute | 0.3 (H)Comment: Testing | K/uL | EXTERNAL | | | Myelocytes | performed at [facility];[address] | | LAB | | | | [address];[place] | | | | | | [address] | | | | + + + + + + | Absolute | 3.0Comment: Testing | 1.0 - 3.9 K/uL | EXTERNAL | | | Lymphocytes | performed at [facility];[address] | | LAB | | | | [address];[place] | | | | | | [address] | | | | + + + + + + | Absolute | 1.3 (H)Comment: Testing | 0 - 0.8 K/uL | EXTERNAL | | | Monocytes | performed at [facility];[address] | | LAB | | | | [address];[place] | | | | | | [address] | | | | + + + + + + | Platelet | ADEQUATEComment: Testing | | EXTERNAL | | | Estimate | performed at [facility];[address] | | LAB | | | | [address];[place] | | | | | | [address] | | | | + + + + + + | RBC | 1+Comment: TOXIC | | EXTERNAL | | | Morphology | GRANULATION1+POLYTesting | | LAB | | | | performed at [facility];[address] | | | | | | [address];[place] | | | | | | [address] | | | | | |Testing performed at [facility];[address];[place] [address] | | | | | | | | | | + + + + + + | Nucleated | 4 (H)Comment: Testing | /100WBC | EXTERNAL | | | Red Blood | performed at [facility];[address] | | LAB | | | Cells | [address];[place] | | | | | | [address] | | | | + + + + + + + + | Specimen | + + | Blood specimen | | (specimen) | + + + +---------+ + + | Performing | Address | City/State/Zipcode | Phone Number | | Organization | | | | + +---------+ + + | EXTERNAL LAB | | | | + +---------+ + + Lactic Acid (04/22/2014 5:32 PM PST) + + + + + + | Component | Value | Ref Range | Performed | Pathologist | | | | | At | Signature | + + + + + + | Lactate | 4.4 (H)Comment: Testing | 0.4 - 2.0 | EXTERNAL | | | | performed at [facility];888 | mmol/L | LAB | | | | [address];[place], [place] | | | | | | [address] | | | | + + + [...] + +---------+ + + PATHOLOGY CONSULT REQUEST (04/22/2014 2:43 PM PST) + + + + + + | Component | Value | Ref Range | Performed | Pathologist | | | | | At | Signature | + + + + + + | Pathologist | Comment: Review of CBC | | EXTERNAL | | | Review 1 | collected 04/22/14. I | | LAB | | | | agree with the automated | | | | | | and manual cell counts. | | | | | | The neutrophils show | | | | | | a left shift without | | | | | | toxic changes. There | | | | | | are no schistocytes or | | | | | | other evidence of | | | | | | peripheral destruction. | | | | | | There is a normal | | | | | | reticulocyte | | | | | | response,given the | | | | | | degree of anemia. The | | | | | | platelets are decreased | | | | | | in number. No platelet | | | | | | clumps are seen. | | | | | | Please correlate | | | | | | clinically. | | | | | | [place]04/24/14. | | | | | | B.S/jbTesting | | | | | | performed at [facility] | | | | | | [address];[place], [place] | | | | | | [address] | | | | + + + + + + + + | Specimen | + + | | + + + +---------+ + + | Performing | Address | City/State/Zipcode | Phone Number | | Organization | | | | + +---------+ + + | EXTERNAL LAB | | | | + +---------+ + + POC RANJAN GROSS Arterial (04/22/2014 2:43 PM PST) + + + + + + | Component | Value | Ref Range | Performed | Pathologist | | | | | At | Signature | + + + + + + | FiO2, POC | 35Comment: Testing | % | EXTERNAL | | | | performed at [facility];[address] | | LAB | | | | [address];[place] | | | | | | [address] | | | | + + + + + + | PH ART | 7.358Comment: Testing | 7.350 - 7.450 | EXTERNAL | | | | performed at [facility];[address] | | LAB | | | | [address];[place] | | | | | | [address] | | | | + + + + + + | PCO2 ART | 37Comment: Testing | 35 - 45 mmHg | EXTERNAL | | | | performed at [facility];[address] | | LAB | | | | [address];[place] | | | | | | [address] | | | | + + + + + + | PO2 ART | 84Comment: Testing | 80 - 105 mmHg | EXTERNAL | | | | performed at [facility];[address] | | LAB | | | | [address];[place] | | | | | | [address] | | | | + + + + + + | HCO3 ART | 21 (L)Comment: Testing | 22 - 26 mmol/L | EXTERNAL | | | | performed at [facility];[address] | | LAB | | | | [address];[place] | | | | | | [address] | | | | + + + + + + | POC | 22 (L)Comment: Testing | 23 - 27 mEq/L | EXTERNAL | | | APPEARANCE | performed at [facility];[address] | | LAB | | | UA | [address];[place] | | | | | | [address] | | | | + + + + + + | Base | 5 (H)Comment: Testing | 0.0 - 2.0 | EXTERNAL | | | deficit | performed at [facility];888 | mmol/L | LAB | | | | [address];[place] | | | | | | [address] | | | | + + + + + + | O2 SAT ART | 96Comment: Testing | 95 - 98 % | EXTERNAL | | | | performed at [facility];[address] | | LAB | | | | [address];[place] | | | | | | [address] | | | | + + + + + + | Sodium, POC | 150 (H)Comment: Testing | 135 - 145 mEq/L | EXTERNAL | | | | performed at [facility];[address] | | LAB | | | | [address];[place] | | | | | | [address] | | | | + + + + + + | Potassium, | 3.7Comment: Testing | 3.5 - 5.0 mEq/L | EXTERNAL | | | POC | performed at [facility];[address] | | LAB | | | | [address];[place] | | | | | | [address] | | | | + + + + + + | Ionized | 1.01 (L)Comment: Testing | 1.12 - 1.32 | EXTERNAL | | | Calcium, | performed at [facility];888 | mmol/L | LAB | | | POC | [address];[place] | | | | | | [address] | | | | + + + + + + | Glucose, | 195 (H)Comment: Testing | 65 - 99 mg/dL | EXTERNAL | | | POC | performed at [facility];[address] | | LAB | | | | [address];[place] | | | | | | [address] | | | | + + + + + + | Hematocrit, | 23 (LL)Comment: Testing | 35.0 - 46.0 % | EXTERNAL | | | POC | performed at [facility];[address] | | LAB | | | | [address];[place] | | | | | | [address] | | | | + + + + + + | Hemoglobin, | 7.8 (LL)Comment: Testing | 11.6 - 15.5 | EXTERNAL | | | POC | performed at [facility];888 | g/dL | LAB | | | | [address];[place] | | | | | | [address] | | | | + + + + + + | Comment, | Tidal Volume = | | EXTERNAL | | | POC | 16Comment: Peep = 8Resp | | LAB | | | | Rate = 46Testing | | | | | | performed at [facility];[address] | | | | | | [address];[place] | | | | | | [address] | | | | + + + + + + + + | Specimen | + + | | + + + +---------+ + + | Performing | Address | City/State/Zipcode | Phone Number | | Organization | | | | + +---------+ + + | EXTERNAL LAB | | | | + +---------+ + + PTT (04/22/2014 2:43 PM PST) + + + + + + | Component | Value | Ref Range | Performed | Pathologist | | | | | At | Signature | + + + + + + | aPTT, | 55 (H)Comment: Testing | 23 - 32 seconds | EXTERNAL | | | Patient | performed at [facility];[address] | | LAB | | | | [address];[place], [place] | | | | | | [address] | | | | + + + + + + + + | Specimen | + + | Blood specimen | | (specimen) | + + + +---------+ + + | Performing | Address | City/State/Zipcode | Phone Number | | Organization | | | | + +---------+ + + | EXTERNAL LAB | | | | + +---------+ + + Protime INR (04/22/2014 2:43 PM PST) + + + + + [...] | | | | | performed at [facility];[address] | | | | | | [address];[place], [place] | | | | | | [address] | | | | + + + + + + + + | Specimen | + + | Blood specimen | | (specimen) | + + + +---------+ + + | Performing | Address | City/State/Zipcode | Phone Number | | Organization | | | | + +---------+ + + | EXTERNAL LAB | | | | + +---------+ + + Fibrinogen (04/22/2014 2:43 PM PST) + + + + + + | Component | Value | Ref Range | Performed | Pathologist | | | | | At | Signature | + + + + + + | Fibrinogen | 81 (L)Comment: Testing | 200 - 450 mg/dL | EXTERNAL | | | | performed at [facility];[address] | | LAB | | | | [address];[place] | | | | | | [address] | | | | + + + [...] + +---------+ + + External Lab: CBC (04/22/2014 2:43 PM PST) + + + + + + | Component | Value | Ref Range | Performed | Pathologist | | | | | At | Signature | + + + + + + | WBC | 35.3 ()Comment: RESULT | 3.8 - 11.0 K/uL | EXTERNAL | | | | READ BACK BY:GRISEL Hanna ON | | LAB | | | | ICU AT [address] | | | | | | [id number] performed | | | | | | at [facility];[address] | | | | | | [address];[place] [address] | | | | + + + + + + | Non- | 2.99 (L)Comment: Testing | 3.70 - 5.10 | EXTERNAL | | | Red Blood | performed at [facility];888 | M/uL | LAB | | | Cells | [address];[place] | | | | | Counted | [address] | | | | + + + + + + | Hemoglobin | 8.3 (L)Comment: Testing | 11.3 - 15.5 | EXTERNAL | | | | performed at [facility];888 | g/dL | LAB | | | | [address];[place] | | | | | | [address] | | | | + + + + + + | Hematocrit, | 26.5 (L)Comment: Testing | 34.0 - 46.0 % | EXTERNAL | | | POC | performed at [facility];[address] | | LAB | | | | [address];[place] | | | | | | [address] | | | | + + + + + + | MCV | 88.6Comment: Testing | 80.0 - 100.0 fl | EXTERNAL | | | | performed at [facility];[address] | | LAB | | | | [address];[place] | | | | | | [address] | | | | + + + + + + | MCH | 27.8Comment: Testing | 27.0 - 34.0 pg | EXTERNAL | | | | performed at [facility];[address] | | LAB | | | | [address];[place] | | | | | | [address] | | | | + + + + + + | MCHC | 31.4 (L)Comment: Testing | 32.0 - 35.5 | EXTERNAL | | | | performed at [facility];888 | g/dL | LAB | | | | [address];[place] | | | | | | [address] | | | | + + + + + + | RDW-CV | 47.3Comment: Testing | 37 - 53 fl | EXTERNAL | | | | performed at [facility];[address] | | LAB | | | | [address];[place] | | | | | | [address] | | | | + + + + + + | Platelet | 78 (L)Comment: Testing | 150 - 400 K/uL | EXTERNAL | | | Count | performed at [facility];[address] | | LAB | | | Plasma | [address];[place] | | | | | | [address] | | | | + + + + + + | MPV | 8.7Comment: Testing | fl | EXTERNAL | | | | performed at [facility];[address] | | LAB | | | | [address];[place] | | | | | | [address] | | | | + + + + + + | Differentia | MANUALComment: Testing | | EXTERNAL | | | l Type | performed at [facility];[address] | | LAB | | | | [address];[place] | | | | | | [address] | | | | + + + + + + | Nucleated | 2 (H)Comment: Testing | /100WBC | EXTERNAL | | | Red Blood | performed at [facility];[address] | | LAB | | | Cells | [address];[place] | | | | | | [address] | | | | + + + + + + | Segmented | 76Comment: Testing | % | EXTERNAL | | | Neutrophils | performed at [facility];[address] | | LAB | | | Manual | [address];[place] | | | | | | [address] | | | | + + + + + + | % Bands | 9Comment: Testing | % | EXTERNAL | | | | performed at [facility];[address] | | LAB | | | | [address];[place] | | | | | | [address] | | | | + + + + + + | % | 3Comment: Testing | % | EXTERNAL | | | Metamyelocy | performed at [facility];[address] | | LAB | | | petros | [address];[place] | | | | | | [address] | | | | + + + + + + | % | 1Comment: Testing | % | EXTERNAL | | | Myelocytes | performed at [facility];[address] | | LAB | | | | [address];[place] | | | | | | [address] | | | | + + + + + + | Lymphocytes | 2Comment: Testing | % | EXTERNAL | | | Manual | performed at [facility];[address] | | LAB | | | | [address];[place] | | | | | | [address] | | | | + + + + + + | Monocytes | 9Comment: Testing | % | EXTERNAL | | | Manual | performed at [facility];[address] | | LAB | | | | [address];[place] | | | | | | [address] | | | | + + + + + + | Absolute | 26.7 (H)Comment: Testing | 1.9 - 7.4 K/uL | EXTERNAL | | | Neutrophils | performed at [facility];[address] | | LAB | | | | [address];[place] | | | | | | [address] | | | | + + + + + + | Bands | 3.2 (H)Comment: Testing | 0 - 0.2 K/uL | EXTERNAL | | | Manual | performed at [facility];[address] | | LAB | | | | [address];[place] | | | | | | [address] | | | | + + + + + + | Absolute | 1.1 (H)Comment: Testing | K/uL | EXTERNAL | | | Metamyelocy | performed at [facility];[address] | | LAB | | | petros | [address];[place] | | | | | | [address] | | | | + + + + + + | Absolute | 0.4 (H)Comment: Testing | K/uL | EXTERNAL | | | Myelocytes | performed at [facility];[address] | | LAB | | | | [address];[place] | | | | | | [address] | | | | + + + + + + | Absolute | 0.7 (L)Comment: Testing | 1.0 - 3.9 K/uL | EXTERNAL | | | Lymphocytes | performed at [facility];[address] | | LAB | | | | [address];[place] | | | | | | [address] | | | | + + + + + + | Absolute | 3.2 (H)Comment: Testing | 0 - 0.8 K/uL | EXTERNAL | | | Monocytes | performed at [facility];[address] | | LAB | | | | [address];[place] | | | | | | [address] | | | | + + + + + + | Platelet | DECREASEDComment: | | EXTERNAL | | | Estimate | Testing performed at | | LAB | | | | [facility];[address];[place] [address] | | | | + + + + + + | RBC | 1+Comment: GIANT | | EXTERNAL | | | Morphology | PLATELETS1+POLY1+HYPO1+A | | LAB | | | | NISOTesting performed at | | | | | | [facility];[address] | | | | | | [address];[place] [address] | | | | | |1+ | | | | | |HYPO | | | | | |1+ | | | | | |ANISO | | | | | |Testing performed at [facility];[address];[place] [address] | | | | | | | | | | + + + + + + | Differentia | SLIDE REFERRED TO | | EXTERNAL | | | l Comments | PATHOLOGIST FOR REVIEW | | LAB | | | | AND COMMENTComment: | | | | | | Testing performed at | | | | | | [facility];[address] [place] [address] | | | | | | [facility];[place] [address] | | | | + + + [...] + +---------+ + + Basic Metabolic Panel (04/22/2014 2:43 PM PST) + + + + + + | Component | Value | Ref Range | Performed | Pathologist | | | | | At | Signature | + + + + + + | Na | 153 (H)Comment: Testing | 135 - 143 | EXTERNAL | | | | performed at [facility];[address] | mmol/L | LAB | | | | [address];[place] | | | | | | [address] | | | | + + + + + + | K | 3.9Comment: Testing | 3.5 - 4.9 | EXTERNAL | | | | performed at [facility];[address] | mmol/L | LAB | | | | [address];[place] | | | | | | [address] | | | | + + + + + + | Cl | 114 (H)Comment: Testing | 99 - 109 mmol/L | EXTERNAL | | | | performed at [facility];[address] | | LAB | | | [address];[place] | | | | | | [address] | | | | + + + + + + | CO2 | 21 (L)Comment: Testing | 23 - 32 mmol/L | EXTERNAL | | | | performed at [facility];[address] | | LAB | | | [address];[place] | | | | | | [address] | | | | + + + + + + | Anion Gap | 23 (H)Comment: Testing | 5 - 20 mmol/L | EXTERNAL | | | | performed at [facility];[address] | | LAB | | | | [address];[place] | | | | | | [address] | | | | + + + + + + | Glucose, | 192 (H)Comment: Testing | 65 - 99 mg/dL | EXTERNAL | | | Fasting | performed at [facility];[address] | | LAB | | | | [address];[place] | | | | | | [address] | | | | + + + + + + | BUN | 34 (H)Comment: Testing | 8 - 25 mg/dL | EXTERNAL | | | | performed at [facility];[address] | | LAB | | | | [address];[place] | | | | | | [address] | | | | + + + + + + | Creatinine | 1.47 (H)Comment: Testing | 0.50 - 1.00 | EXTERNAL | | | | performed at [facility];[address] | mg/dL | LAB | | | | [address];[place] | | | | | | [address] | | | | + + + + + + | BUN/Creatin | 23Comment: Testing | | EXTERNAL | | | ine Ratio | performed at [facility];[address] | | LAB | | | | [address];[place] | | | | | | [address] | | | | + + + + + + | Calcium | 6.7 (L)Comment: Testing | 8.5 - 10.2 | EXTERNAL | | | | performed at [facility];[address] | mg/dL | LAB | | | | [address];[place] | | | | | | [address] | | | | + + + + + + | Estimated | 39 (L)Comment: GFR <60: | mL/min/1.73m2 | EXTERNAL | [...] | | | | | | at [facility];[address] | | | | | | [address];[place] [address] | | | | + + + + + + + + | Specimen | + + | Blood specimen | | (specimen) | + + + +---------+ + + | Performing | Address | City/State/Zipcode | Phone Number | | Organization | | | | + +---------+ + + | EXTERNAL LAB | | | | + +---------+ + + Lactic Acid (04/22/2014 2:42 PM PST) + + + + + + | Component | Value | Ref Range | Performed | Pathologist | | | | | At | Signature | + + + + + + | Lactate | 13.3 (H)Comment: Testing | 0.4 - 2.0 | EXTERNAL | | | | performed at [facility];[address] | mmol/L | LAB | | | | [address];[place], [place] | | | | | | [address] | | | | + + + + + + + + | Specimen | + + | Blood specimen | | (specimen) | + + + +---------+ + + | Performing | Address | City/State/Zipcode | Phone Number | | Organization | | | | + +---------+ + + | EXTERNAL LAB | | | | + +---------+ + + POC Glucose (04/22/2014 2:41 PM PST) + + + + + + | Component | Value | Ref Range | Performed | Pathologist | | | | | At | Signature | + + + + + + | Glucose, | 223 (H)Comment: Testing | 65 - 99 mg/dL | EXTERNAL | | | Fingerstick | performed at [facility];[address] | | LAB | | | | [address];[place], [place] | | | | | | [address] | | | | + + + + + + + + | Specimen | + + | | + + + +---------+ + + | Performing | Address | City/State/Zipcode | Phone Number | | Organization | | | | + +---------+ + + | EXTERNAL LAB | | | | + +---------+ + + US Abdomen Limited (04/22/2014 2:26 PM PST) + + | Specimen | + + | | + + + + + | Impressions | Performed At | + + + | Large complex nonvascular mass of the left upper abdomen measuring | | | 22 x 13 x 12 cm in size, most consistent with hematoma. | | | | | + + + + + + | Narrative | Performed At | + + + | MACKENZIE HARTLEY US ABDOMEN LIMITED 04/22/2014 2:37 PM HISTORY: | | | Indication, bleeding. TECHNIQUE: Limited sonographic evaluation | | | of the abdomen was performed. COMPARISON: None. FINDINGS: | | | Large left upper quadrant complex mass measuring 22 x 13 x 12 cm | | | which is nonvascular, likely representing a large hematoma. Left | | | pleural effusion. | | + + + + + | Procedure Note | + + | Judson, Tez Conversion - 11/24/2018 6:38 AM PDT MACKENZIE GONZALEZ ABDOMEN LIMITED04/22/2014 | | 2:37 PM HISTORY:Indication, bleeding. TECHNIQUE:Limited sonographic evaluation of the | | abdomen was performed. COMPARISON:None. FINDINGS: Large left upper quadrant complex mass | | measuring 22 x 13 x 12 cm which is nonvascular, likely representing a large hematoma. | | Left pleural effusion. IMPRESSION: Large complex nonvascular mass of the left upper | | abdomen measuring 22 x 13 x 12 cm in size, most consistent with hematoma. Electronically | | signed by Santana Adams MD on 04/22/2014 2:42 PM | |TECHNIQUE: | |Limited sonographic evaluation of the abdomen was performed. | | | |COMPARISON: | |None. | | | |FINDINGS: | | | |Large left upper quadrant complex mass measuring 22 x 13 x 12 cm which is nonvascular, like ly representing a large hematoma. | | | |Left pleural effusion. | | | |IMPRESSION: | |Large complex nonvascular mass of the left upper abdomen measuring 22 x 13 x 12 cm in size, most consistent with hematoma. | | | | | + + XR Chest 1 Vw (04/22/2014 2:13 PM PST) + + | Specimen | + + | | + + + + + | Impressions | Performed At | + + + | 1. New right IJ Cordis, radiograph the appropriate location. | | | Other support but seems stable. 2. Lung volumes are less, edema | | | seems slightly increased. Stable retro-cardiac atelectasis or | | | consolidation Electronically signed by Jordon Barcenas MD on | | | 04/22/2014 2:21 PM | | + + + + + + | Narrative | Performed At | + + + | History: 58 year-old female with evaluate tube and line position. | | | Technique: AP supine portable radiographic examination of the chest, | | | obtained at 14:03 on 20 September 2014. Prior study for comparison | | | -- 5:44. 22 April 2014. Findings: Cardiomediastinum stable | | | with borderline left ventricular megaly but no absolute cardiomegaly. | | | Support equipment endotracheal tube superimposed over the midline | | | airway, stable at about 6 cm above the derrell. New right IJ Cordis in | | | radiographically appropriate position. The right upper terminate PICC | | | line is unchanged. Mediport about the left chest, seems stable. | | | Enteric tube unchanged. Lungs are hypoinflated, inflation is less | | | when compared to the prior examination and there is interstitial edema | | | and hilar vascular congestion. Stable dense opacity in the | | | retrocardiac region which could be atelectasis or consolidation. | | | Bones and soft tissues are stable with arthropathy of the shoulders | | | and spine. | | + + + + + | Procedure Note | + + | Tez Roper Conversion - 11/24/2018 6:38 AM PDT History: 58 year-old female with | | evaluate tube and line position. Technique: AP supine portable radiographic examination | | of the chest, obtained at 14:03 on 20 September 2014. Prior study for comparison -- 5:44. | | 22 April 2014. Findings: Cardiomediastinum stable with borderline left ventricular | | megaly but no absolute cardiomegaly. Support equipment endotracheal tube superimposed | | over the midline airway, stable at about 6 cm above the derrell. New right IJ Cordis in | | radiographically appropriate position. The right upper terminate PICC line is unchanged. | | Mediport about the left chest, seems stable. Enteric tube unchanged. Lungs are | | hypoinflated, inflation is less when compared to the prior examination and there is | | interstitial edema and hilar vascular congestion. Stable dense opacity in the | | retrocardiac region which could be atelectasis or consolidation. Bones and soft tissues | | are stable with arthropathy of the shoulders and spine. IMPRESSION: 1. New right IJ | | Cordis, radiograph the appropriate location. Other support but seems stable. 2. Lung | | volumes are less, edema seems slightly increased. Stable retro-cardiac atelectasis or | | consolidation | | | |IMPRESSION: | | | |1. New right IJ Cordis, radiograph the appropriate location. Other support but seems stable . | | | |2. Lung volumes are less, edema seems slightly increased. Stable retro-cardiac atelectasis or consolidation | | | | | + + POC GINNY, CG8, Arterial (04/22/2014 1:41 PM PST) + + + + + + | Component | Value | Ref Range | Performed | Pathologist | | | | | At | Signature | + + + + + + | FiO2, POC | 40Comment: Testing | % | EXTERNAL | | | | performed at [facility];[address] | | LAB | | | | [address];[place] | | | | | | [address] | | | | + + + + + + | PH ART | 7.140 ()Comment: | 7.350 - 7.450 | EXTERNAL | | | | Testing performed at | | LAB | | | | [facility];[address];[place] [address] | | | | + + + + + + | PCO2 ART | 38Comment: Testing | 35 - 45 mmHg | EXTERNAL | | | | performed at [facility];[address] | | LAB | | | | [address];[place] | | | | | | [address] | | | | + + + + + + | PO2 ART | 104Comment: Testing | 80 - 105 mmHg | EXTERNAL | | | | performed at [facility];[address] | | LAB | | | | [address];[place] | | | | | | [address] | | | | + + + + + + | HCO3 ART | 13 (L)Comment: Testing | 22 - 26 mmol/L | EXTERNAL | | | | performed at [facility];[address] | | LAB | | | | [address];[place] | | | | | | [address] | | | | + + + + + + | POC | 14 (L)Comment: Testing | 23 - 27 mEq/L | EXTERNAL | | | APPEARANCE | performed at [facility];[address] | | LAB | | | UA | [address];[place] | | | | | | [address] | | | | + + + + + + | Base | 16 (H)Comment: Testing | 0.0 - 2.0 | EXTERNAL | | | deficit | performed at [facility];[address] | mmol/L | LAB | | | | [address];[place] | | | | | | [address] | | | | + + + + + + | O2 SAT ART | 96Comment: Testing | 95 - 98 % | EXTERNAL | | | | performed at [facility];[address] | | LAB | | | | [address];[place] | | | | | | [address] | | | | + + + + + + | Sodium, POC | 146 (H)Comment: Testing | 135 - 145 mEq/L | EXTERNAL | | | | performed at [facility];[address] | | LAB | | | | [address];[place] | | | | | | [address] | | | | + + + + + + | Potassium, | 5.0Comment: Testing | 3.5 - 5.0 mEq/L | EXTERNAL | | | POC | performed at [facility];[address] | | LAB | | | | [address];[place] | | | | | | [address] | | | | + + + + + + | Ionized | 1.15Comment: Testing | 1.12 - 1.32 | EXTERNAL | | | Calcium, | performed at [facility];[address] | mmol/L | LAB | | | POC | [address];[place] | | | | | | [address] | | | | + + + + + + | Glucose, | 265 (H)Comment: Testing | 65 - 99 mg/dL | EXTERNAL | | | POC | performed at [facility];[address] | | LAB | | | | [address];[place] | | | | | | [address] | | | | + + + + + + | Hematocrit, | <10 (LL)Comment: Testing | 35.0 - 46.0 % | EXTERNAL | | | POC | performed at [facility];[address] | | LAB | | | | [address];[place] | | | | | | [address] | | | | + + + + + + | Comment, | Tidal Volume = | | EXTERNAL | | | POC | 16Comment: Peep = 8Resp | | LAB | | | | Rate = 46Testing | | | | | | performed at [facility];[address] | | | | | | [address];[place] | | | | | | [address] | | | | + + + + + + + + | Specimen | + + | | + + + +---------+ + + | Performing | Address | City/State/Zipcode | Phone Number | | Organization | | | | + +---------+ + + | EXTERNAL LAB | | | | + +---------+ + + POC Glucose (04/22/2014 12:31 PM PST) + + + + + + | Component | Value | Ref Range | Performed | Pathologist | | | | | At | Signature | + + + + + + | Glucose, | 378 (H)Comment: Testing | 65 - 99 mg/dL | EXTERNAL | | | Fingerstick | performed at [facility];[address] | | LAB | | | | [address];[place] | | | | | | [address] | | | | + + + + + + + + | Specimen | + + | | + + + +---------+ + + | Performing | Address | City/State/Zipcode | Phone Number | | Organization | | | | + +---------+ + + | EXTERNAL LAB | | | | + +---------+ + + ECG 12 lead (04/22/2014 11:11 AM PST) + + + + + + | Component | Value | Ref Range | Performed | Pathologist | | | | | At | Signature | + + + + + + | DIAGNOSIS: | Sinus tachycardiaST & T | | EXTERNAL | | | | wave abnormality, | | LAB | | | | consider inferolateral | | | | | | ischemiaAbnormal ECGWhen | | | | | | compared with ECG of | | | | | | -APR-2014 | | | | | | 05:06,Criteria for | | | | | | Septal infarct are no | | | | | | longer PresentT wave | | | | | | inversion no longer | | | | | | evident in Anterior | | | | | | leadsConfirmed by Tr, | | | | | | Sandoval ([id number]) on | | | | | | 04/22/2014 11:29:19 AM | | | | + + + + + + + + | Specimen | + + | | + + + + + | Narrative | Performed At | + + + | Historically converted procedure from [facility] environment | EXTERNAL LAB | + + + + +---------+ + + | Performing | Address | City/State/Zipcode | Phone Number | | Organization | | | | + +---------+ + + | EXTERNAL LAB | | | | + +---------+ + + POC Glucose (04/22/2014 6:31 AM PST) + + + + + + | Component | Value | Ref Range | Performed | Pathologist | | | | | At | Signature | + + + + + + | Glucose, | 127 (H)Comment: Testing | 65 - 99 mg/dL | EXTERNAL | | | Fingerstick | performed at [facility];[address] | | LAB | | | | [address];[place], [place] | | | | | | [address] | | | | + + + + + + + + | Specimen | + + | | + + + +---------+ + + | Performing | Address | City/State/Zipcode | Phone Number | | Organization | | | | + +---------+ + + | EXTERNAL LAB | | | | + +---------+ + + XR Chest 1 Vw (04/22/2014 6:23 AM PST) + + | Specimen | + + | | + + + + + | Impressions | Performed At | + + + | 1. Persistent left basilar presumed atelectasis with subtle | | | effusions. 2. Minimal reticular interstitial prominence again | | | noted, greater in the upper lung alberto. 3. Stable tubes and lines. | | | | | + + + + + + | Narrative | Performed At | + + + | HISTORY: Difficulty breathing. COMPARISON: 04/21/14. | | | TECHNIQUE: AP portable film of the chest at 0548 hours FINDINGS: | | | Heart size remains normal. ET tube, NG tube, right PICC line, left | | | subclavian Mediport unchanged. Persistent left basilar opacity. I | | | would favor atelectasis over infiltrate. Subtle persistent bilateral | | | effusions. Minimal reticular interstitial prominence in both lung | | | alberto again noted, greater in the upper lung alberto. | | + + + + + | Procedure Note | + + | Judson, Rad Conversion - 11/24/2018 6:38 AM PDT HISTORY:Difficulty breathing. | | COMPARISON:04/21/14. TECHNIQUE:AP portable film of the chest at 0548 hours FINDINGS:Heart | | size remains normal. ET tube, NG tube, right PICC line, left subclavian Mediport | | unchanged. Persistent left basilar opacity. I would favor atelectasis over infiltrate. | | Subtle persistent bilateral effusions. Minimal reticular interstitial prominence in both | | lung alberto again noted, greater in the upper lung alberto. IMPRESSION: 1. Persistent | | left basilar presumed atelectasis with subtle effusions.2. Minimal reticular | | interstitial prominence again noted, greater in the upper lung alberto.3. Stable tubes | | and lines. | |FINDINGS: | |Heart size remains normal. ET tube, NG tube, right PICC line, left subclavian Mediport unch anged. Persistent left basilar opacity. I would favor atelectasis over infiltrate. Subtle pe rsistent bilateral effusions. | |Minimal reticular interstitial prominence | | in both lung alberto again noted, greater in the upper lung alberto. | | | |IMPRESSION: | |1. Persistent left basilar presumed atelectasis with subtle effusions. | |2. Minimal reticular interstitial prominence again noted, greater in the upper lung alberto . | |3. Stable tubes and lines. | | | | | + + Ammonia (04/22/2014 4:03 AM PST) + + + + + + | Component | Value | Ref Range | Performed | Pathologist | | | | | At | Signature | + + + + + + | Ammonia | 29Comment: Testing | umol/L | EXTERNAL | | | | performed at [facility];[address] | | LAB | | | | [address];[place] | | | | | | [address] | | | | + + + + + + + + | Specimen | + + | Blood specimen | | (specimen) | + + + +---------+ + + | Performing | Address | City/State/Zipcode | Phone Number | | Organization | | | | + +---------+ + + | EXTERNAL LAB | | | | + +---------+ + + Procalcitonin (04/22/2014 4:00 AM PST) + + + + + + | Component | Value | Ref Range | Performed | Pathologist | | | | | At | Signature | + + + + + + | Source | PLASMAComment: Testing | | EXTERNAL | | | | performed at [facility] | | LAB | | | | [address];[place], [place] | | | | | | [address] | | | | + + + + + + | PROCALCITON | 0.05Comment: | ng/mL | EXTERNAL | | | [...] | | | | | | at [facility];[address] [facility] | | | | | | [facility];[place] [address] | | | | + + + + + + + + | Specimen | + + | | + + + +---------+ + + | Performing | Address | City/State/Zipcode | Phone Number | | Organization | | | | + +---------+ + + | EXTERNAL LAB | | | | + +---------+ + + PTT (04/22/2014 4:00 AM PST) + + + + + + | Component | Value | Ref Range | Performed | Pathologist | | | | | At | Signature | + + + + + + | aPTT, | 50 (H)Comment: Testing | 23 - 32 seconds | EXTERNAL | | | Patient | performed at [facility];[address] | | LAB | | | | [address];[place], [place] | | | | | | [address] | | | | + + + + + + + + | Specimen | + + | Blood specimen | | (specimen) | + + + +---------+ + + | Performing | Address | City/State/Zipcode | Phone Number | | Organization | | | | + +---------+ + + | EXTERNAL LAB | | | | + +---------+ + + Protime INR (04/22/2014 4:00 AM PST) + + + + + [...] | | | | | performed at [facility];[address] | | | | | | [address];[place] | | | | | | [address] | | | | + + + [...] + +---------+ + + External Lab: CBC (04/22/2014 4:00 AM PST) + + + + + + | Component | Value | Ref Range | Performed | Pathologist | | | | | At | Signature | + + + + + + | WBC | 23.1 (H)Comment: Testing | 3.8 - 11.0 K/uL | EXTERNAL | | | | performed at [facility];[address] | | LAB | | | | [address];[place] | | | | | | [address] | | | | + + + + + + | Non- | 3.56 (L)Comment: Testing | 3.70 - 5.10 | EXTERNAL | | | Red Blood | performed at [facility];[address] | M/uL | LAB | | | Cells | [address];[place] | | | | | Counted | [address] | | | | + + + + + + | Hemoglobin | 8.7 (L)Comment: Testing | 11.3 - 15.5 | EXTERNAL | | | | performed at [facility];[address] | g/dL | LAB | | | | [address];[place] | | | | | | [address] | | | | + + + + + + | Hematocrit, | 29.0 (L)Comment: Testing | 34.0 - 46.0 % | EXTERNAL | | | POC | performed at [facility];[address] | | LAB | | | | [address];[place] | | | | | | [address] | | | | + + + + + + | MCV | 81.3Comment: Testing | 80.0 - 100.0 fl | EXTERNAL | | | | performed at [facility];[address] | | LAB | | | | [address];[place] | | | | | | [address] | | | | + + + + + + | MCH | 24.4 (L)Comment: Testing | 27.0 - 34.0 pg | EXTERNAL | | | | performed at [facility];[address] | | LAB | | | | [address];[place] | | | | | | [address] | | | | + + + + + + | MCHC | 30.0 (L)Comment: Testing | 32.0 - 35.5 | EXTERNAL | | | | performed at [facility];[address] | g/dL | LAB | | | | [address];[place] | | | | | | [address] | | | | + + + + + + | RDW-CV | 63.9 (H)Comment: Testing | 37 - 53 fl | EXTERNAL | | | | performed at [facility];[address] | | LAB | | | | [address];[place] | | | | | | [address] | | | | + + + + + + | Platelet | 330Comment: Testing | 150 - 400 K/uL | EXTERNAL | | | Count | performed at [facility];[address] | | LAB | | | Plasma | [address];[place] | | | | | | [address] | | | | + + + + + + | MPV | 8.6Comment: Testing | fl | EXTERNAL | | | | performed at [facility];[address] | | LAB | | | | [address];[place] | | | | | | [address] | | | | + + + + + + | Differentia | MANUALComment: Testing | | EXTERNAL | | | l Type | performed at [facility];[address] | | LAB | | | | [address];[place] | | | | | | [address] | | | | + + + + + + | Segmented | 77Comment: Testing | % | EXTERNAL | | | Neutrophils | performed at [facility];[address] | | LAB | | | Manual | [address];[place] | | | | | | [address] | | | | + + + + + + | % Bands | 4Comment: Testing | % | EXTERNAL | | | | performed at [facility];[address] | | LAB | | | | [address];[place] | | | | | | [address] | | | | + + + + + + | % | 3Comment: Testing | % | EXTERNAL | | | Metamyelocy | performed at [facility];[address] | | LAB | | | petros | [address];[place] | | | | | | [address] | | | | + + + + + + | % | 1Comment: Testing | % | EXTERNAL | | | Myelocytes | performed at [facility];[address] | | LAB | | | | [address];[place] | | | | | | [address] | | | | + + + + + + | Lymphocytes | 10Comment: Testing | % | EXTERNAL | | | Manual | performed at [facility];[address] | | LAB | | | | [address];[place] | | | | | | [address] | | | | + + + + + + | Monocytes | 5Comment: Testing | % | EXTERNAL | | | Manual | performed at [facility];[address] | | LAB | | | | [address];[place] | | | | | | [address] | | | | + + + + + + | Absolute | 17.8 (H)Comment: Testing | 1.9 - 7.4 K/uL | EXTERNAL | | | Neutrophils | performed at [facility];[address] | | LAB | | | | [address];[place] | | | | | | [address] | | | | + + + + + + | Bands | 0.9 (H)Comment: Testing | 0 - 0.2 K/uL | EXTERNAL | | | Manual | performed at [facility];[address] | | LAB | | | | [address];[place] | | | | | | [address] | | | | + + + + + + | Absolute | 0.7 (H)Comment: Testing | K/uL | EXTERNAL | | | Metamyelocy | performed at [facility];[address] | | LAB | | | petros | [address];[place] | | | | | | [address] | | | | + + + + + + | Absolute | 0.2 (H)Comment: Testing | K/uL | EXTERNAL | | | Myelocytes | performed at [facility];[address] | | LAB | | | | [address];[place] | | | | | | [address] | | | | + + + + + + | Absolute | 2.3Comment: Testing | 1.0 - 3.9 K/uL | EXTERNAL | | | Lymphocytes | performed at [facility];[address] | | LAB | | | | [address];[place] | | | | | | [address] | | | | + + + + + + | Absolute | 1.2 (H)Comment: Testing | 0 - 0.8 K/uL | EXTERNAL | | | Monocytes | performed at [facility];[address] | | LAB | | | | [address];[place] | | | | | | [address] | | | | + + + + + + | RBC | 2+Comment: | | EXTERNAL | | | Morphology | HYPO3+ANISO1+POIK1+TARGE | | LAB | | | | TNORMAL PLT MORPHTesting | | | | | | performed at [facility];[address] | | | | | | [address];[place] | | | | | | [address] | | | | | |POIK | | | | | |1+ | | | | | |TARGET | | | | | |NORMAL PLT MORPH | | | | | |Testing performed at [facility];[address] [facility];[place] [address] | | | | | | | [...] | | | + +---------+ + + Prealbumin (04/22/2014 4:00 AM PST) + + + + + + | Component | Value | Ref Range | Performed | Pathologist | | | | | At | Signature | + + + + + + | Prealbumin | 32.1Comment: Testing | 20.0 - 40.0 | EXTERNAL | | | | performed at [facility], [address] | mg/dL | LAB | | | | [address], | | | | | | [place] [address] | | | | + + + + + + + + | Specimen | + + | Blood specimen | | (specimen) | + + + +---------+ + + | Performing | Address | City/State/Zipcode | Phone Number | | Organization | | | | + +---------+ + + | EXTERNAL LAB | | | | + +---------+ + + Phosphorus (04/22/2014 4:00 AM PST) + + + + + + | Component | Value | Ref Range | Performed | Pathologist | | | | | At | Signature | + + + + + + | PHOSPHORUS | 3.8Comment: Testing | 2.3 - 4.8 mg/dL | EXTERNAL | | | | performed at [facility], [address] | | LAB | | | | [address], | | | | | | [place] [address] | | | | + + + + + + + + | Specimen | + + | Blood specimen | | (specimen) | + + + +---------+ + + | Performing | Address | City/State/Zipcode | Phone Number | | Organization | | | | + +---------+ + + | EXTERNAL LAB | | | | + +---------+ + + B Type Natriuretic Peptide (04/22/2014 4:00 AM PST) + + + + + + | Component | Value | Ref Range | Performed | Pathologist | | | | | At | Signature | + + + + + + | BNP | 309 (H)Comment: Testing | 0 - 100 pg/mL | EXTERNAL | | | | performed at [facility];[address] | | LAB | | | [facility], [place] | | | | | | [address] | | | | + + + + + + + + | Specimen | + + | Blood specimen | | (specimen) | + + + +---------+ + + | Performing | Address | City/State/Zipcode | Phone Number | | Organization | | | | + +---------+ + + | EXTERNAL LAB | | | | + +---------+ + + Magnesium (04/22/2014 4:00 AM PST) + + + + + [...] | | | | | [place] [address] | | | | + + + + + + + + | Specimen | + + | Blood specimen | | (specimen) | + + + +---------+ + + | Performing | Address | City/State/Zipcode | Phone Number | | Organization | | | | + +---------+ + + | EXTERNAL LAB | | | | + +---------+ + + Hepatic Function Panel (04/22/2014 4:00 AM PST) + + + + + + | Component | Value | Ref Range | Performed | Pathologist | | | | | At | Signature | + + + + + + | Protein, | 5.1 (L)Comment: Testing | 6.3 - 8.2 g/dL | EXTERNAL | | | Total | performed at [facility], [address] | | LAB | | | | [address], | | | | | | [place] [address] | | | | + + + + + + | Albumin | 2.4 (L)Comment: Testing | 3.6 - 5.0 g/dL | EXTERNAL | | | | performed at [facility], [address] | | LAB | | | | [address], | | | | | | [place] [address] | | | | + + + + + + | Bilirubin | 0.5Comment: Testing | 0.1 - 1.5 mg/dL | EXTERNAL | | | Total | performed at [facility], [address] | | LAB | | | | [address], | | | | | | [place] [address] | | | | + + + + + + | Bilirubin | 0.1Comment: Testing | 0.0 - 0.3 mg/dL | EXTERNAL | | | Direct | performed at [facility], [address] | | LAB | | | | [address], | | | | | | [place] [address] | | | | + + + + + + | ALP, | 131 (H)Comment: Testing | 35 - 115 U/L | EXTERNAL | | | External | performed at [facility], [address] | | LAB | | | | [address], | | | | | | [place] [address] | | | | + + + + + + | AST | 20Comment: Testing | 10 - 45 U/L | EXTERNAL | | | | performed at [facility], [address] | | LAB | | | | [address], | | | | | | [place] [address] | | | | + + + + + + | ALT | 11Comment: Testing | 10 - 65 U/L | EXTERNAL | | | | performed at [facility], [address] | | LAB | | | | [address], | | | | | | [place], [place] [address] | | | | + + + + + + + + | Specimen | + + | | + + + +---------+ + + | Performing | Address | City/State/Zipcode | Phone Number | | Organization | | | | + +---------+ + + | EXTERNAL LAB | | | | + +---------+ + + Lipid Panel (04/22/2014 4:00 AM PST) + + + + + + | Component | Value | Ref Range | Performed | Pathologist | | | | | At | Signature | + + + + + + | Cholesterol | 213 (H)Comment: Testing | mg/dL | EXTERNAL | | | | performed at [facility], [address] | | LAB | | | | [address], | | | | | | [place] [address] | | | | + + + + + + | Triglycerid | 151 (H)Comment: Testing | mg/dL | EXTERNAL | | | es | performed at [facility], [address] | | LAB | | | | [address], | | | | | | [place] [address] | | | | + + + + + + | HDL | 58Comment: Testing | mg/dL | EXTERNAL | | | | performed at [facility], [address] | | LAB | | | | [address], | | | | | | [place] [address] | | | | + + + + + + | LDL, | 125 (H)Comment: Testing | mg/dL | EXTERNAL | | | Calculated | performed at [facility], [address] | | LAB | | | | [address], | | | | | | [place] [address] | | | | + + + [...] + +---------+ + + Basic Metabolic Panel (04/22/2014 4:00 AM PST) + + + + + + | Component | Value | Ref Range | Performed | Pathologist | | | | | At | Signature | + + + + + + | Na | 145 (H)Comment: Testing | 135 - 143 | EXTERNAL | | | | performed at [facility], [address] | mmol/L | LAB | | | | [address], | | | | | | [place] [address] | | | | + + + + + + | K | 4.0Comment: Testing | 3.5 - 4.9 | EXTERNAL | | | | performed at [facility], [address] | mmol/L | LAB | | | | [address], | | | | | | [place] [address] | | | | + + + + + + | Cl | 107Comment: Testing | 99 - 109 mmol/L | EXTERNAL | | | | performed at [facility], [address] | | LAB | | | | [address], | | | | | | [place] [address] | | | | + + + + + + | CO2 | 29Comment: Testing | 23 - 32 mmol/L | EXTERNAL | | | | performed at [facility], [address] | | LAB | | | | [address], | | | | | | [place] [address] | | | | + + + + + + | Anion Gap | 13Comment: Testing | 5 - 20 mmol/L | EXTERNAL | | | | performed at [facility], [address] | | LAB | | | | [address], | | | | | | [place] [address] | | | | + + + + + + | Glucose, | 123 (H)Comment: Testing | 65 - 99 mg/dL | EXTERNAL | | | Fasting | performed at [facility], [address] | | LAB | | | | [address], | | | | | | [place] [address] | | | | + + + + + + | BUN | 30 (H)Comment: Testing | 8 - 25 mg/dL | EXTERNAL | | | | performed at [facility], [address] | | LAB | | | | [address], | | | | | | [place] [address] | | | | + + + + + + | Creatinine | 0.64Comment: Testing | 0.50 - 1.00 | EXTERNAL | | | | performed at [facility], [address] | mg/dL | LAB | | | | [address], | | | | | | [place] [address] | | | | + + + + + + | BUN/Creatin | 47Comment: Testing | | EXTERNAL | | | ine Ratio | performed at [facility], [address] | | LAB | | | | [address], | | | | | | [place] [address] | | | | + + + + + + | Calcium | 8.8Comment: Testing | 8.5 - 10.2 | EXTERNAL | | | | performed at [facility], [address] | mg/dL | LAB | | | | [facility], | | | | | | [place] [address] | | | | + + + [...] W | | | | | | [facility], | | | | | | [place] [address] | | | | + + + + + + + + | Specimen | + + | Blood specimen | | (specimen) | + + + +---------+ + + | Performing | Address | City/State/Zipcode | Phone Number | | Organization | | | | + +---------+ + + | EXTERNAL LAB | | | | + +---------+ + + Culture, Blood (04/21/2014 11:45 PM PST) + + | Specimen | + + | Blood specimen | | (specimen) | + + + + + | Narrative | Performed At | + + + | Specimen Description BLOOD, PERIPHERAL DRAW | EXTERNAL LAB | | SPECIAL REQUESTS LEFT AC | | | Testing performed at [facility];[address];[place] [address] CULTURE | | | NO GROWTH | | | Testing performed at [facility], [address] [facility], [place], [place] | | | [address] | | + + + + +---------+ + + | Performing | Address | City/State/Zipcode | Phone Number | | Organization | | | | + +---------+ + + | EXTERNAL LAB | | | | + +---------+ + + Culture, Blood, 2nd Specimen (04/21/2014 11:28 PM PST) + + | Specimen | + + | Blood specimen | | (specimen) | + + + + + | Narrative | Performed At | + + + | Specimen Description BLOOD, PERIPHERAL DRAW | EXTERNAL LAB | | SPECIAL REQUESTS LEFT AC | | | Testing performed at [facility];[address] | | | [facility];[place] [address] CULTURE | | | NO GROWTH | | | Testing performed at [facility], [address] [facility], [place], [place] | | | [address] | | + + + + +---------+ + + | Performing | Address | City/State/Zipcode | Phone Number | | Organization | | | | + +---------+ + + | EXTERNAL LAB | | | | + +---------+ + + Potassium (04/21/2014 11:09 PM PST) + + + + + + | Component | Value | Ref Range | Performed | Pathologist | | | | | At | Signature | + + + + + + | K | 3.6Comment: Testing | 3.5 - 4.9 | EXTERNAL | | | | performed at [facility];[address] | mmol/L | LAB | | | | [address];[place], [place] | | | | | | [address] | | | | + + + + + + + + | Specimen | + + | Blood specimen | | (specimen) | + + + +---------+ + + | Performing | Address | City/State/Zipcode | Phone Number | | Organization | | | | + +---------+ + + | EXTERNAL LAB | | | | + +---------+ + + POC Glucose (04/21/2014 11:06 PM PST) + + + + + + | Component | Value | Ref Range | Performed | Pathologist | | | | | At | Signature | + + + + + + | Glucose, | 135 (H)Comment: Testing | 65 - 99 mg/dL | EXTERNAL | | | Fingerstick | performed at [facility];[address] | | LAB | | | | [address];[place] | | | | | | [address] | | | | + + + + + + + + | Specimen | + + | | + + + +---------+ + + | Performing | Address | City/State/Zipcode | Phone Number | | Organization | | | | + +---------+ + + | EXTERNAL LAB | | | | + +---------+ + + External Lab: CBC (04/21/2014 3:36 PM PST) + + + + + + | Component | Value | Ref Range | Performed | Pathologist | | | | | At | Signature | + + + + + + | WBC | 21.4 (H)Comment: Testing | 3.8 - 11.0 K/uL | EXTERNAL | | | | performed at [facility];[address] | | LAB | | | | [address];[place] | | | | | | [address] | | | | + + + + + + | Non- | 3.11 (L)Comment: Testing | 3.70 - 5.10 | EXTERNAL | | | Red Blood | performed at [facility];[address] | M/uL | LAB | | | Cells | [address];[place] | | | | | Counted | [address] | | | | + + + + + + | Hemoglobin | 7.6 (L)Comment: Testing | 11.3 - 15.5 | EXTERNAL | | | | performed at [facility];[address] | g/dL | LAB | | | | [address];[place] | | | | | | [address] | | | | + + + + + + | Hematocrit, | 25.7 (L)Comment: Testing | 34.0 - 46.0 % | EXTERNAL | | | POC | performed at [facility];[address] | | LAB | | | | [address];[place] | | | | | | [address] | | | | + + + + + + | MCV | 82.8Comment: Testing | 80.0 - 100.0 fl | EXTERNAL | | | | performed at [facility];[address] | | LAB | | | | [address];[place] | | | | | | [address] | | | | + + + + + + | MCH | 24.6 (L)Comment: Testing | 27.0 - 34.0 pg | EXTERNAL | | | | performed at [facility];[address] | | LAB | | | | [address];[place] | | | | | | [address] | | | | + + + + + + | MCHC | 29.7 (L)Comment: Testing | 32.0 - 35.5 | EXTERNAL | | | | performed at [facility];[address] | g/dL | LAB | | | | [address];[place] | | | | | | [address] | | | | + + + + + + | RDW-CV | 66.5 (H)Comment: Testing | 37 - 53 fl | EXTERNAL | | | | performed at [facility];[address] | | LAB | | | | [address];[place] | | | | | | [address] | | | | + + + + + + | Platelet | 318Comment: Testing | 150 - 400 K/uL | EXTERNAL | | | Count | performed at [facility];[address] | | LAB | | | Plasma | [address];[place] | | | | | | [address] | | | | + + + + + + | MPV | 9.1Comment: Testing | fl | EXTERNAL | | | | performed at [facility];[address] | | LAB | | | | [address];[place] | | | | | | [address] | | | | + + + + + + | Differentia | MANUALComment: Testing | | EXTERNAL | | | l Type | performed at [facility];[address] | | LAB | | | | [address];[place] | | | | | | [address] | | | | + + + + + + | Nucleated | 1 (H)Comment: Testing | /100WBC | EXTERNAL | | | Red Blood | performed at [facility];[address] | | LAB | | | Cells | [address];[place] | | | | | | [address] | | | | + + + + + + | Segmented | 70Comment: Testing | % | EXTERNAL | | | Neutrophils | performed at [facility];[address] | | LAB | | | Manual | [address];[place] | | | | | | [address] | | | | + + + + + + | % Bands | 4Comment: Testing | % | EXTERNAL | | | | performed at [facility];[address] | | LAB | | | | [address];[place] | | | | | | [address] | | | | + + + + + + | % | 2Comment: Testing | % | EXTERNAL | | | Metamyelocy | performed at [facility];[address] | | LAB | | | petros | [address];[place] | | | | | | [address] | | | | + + + + + + | % | 1Comment: Testing | % | EXTERNAL | | | Myelocytes | performed at [facility];[address] | | LAB | | | | [address];[place] | | | | | | [address] | | | | + + + + + + | Lymphocytes | 14Comment: Testing | % | EXTERNAL | | | Manual | performed at [facility];[address] | | LAB | | | | [address];[place] | | | | | | [address] | | | | + + + + + + | Monocytes | 9Comment: Testing | % | EXTERNAL | | | Manual | performed at [facility];[address] | | LAB | | | | [address];[place] | | | | | | [address] | | | | + + + + + + | Absolute | 15.0 (H)Comment: Testing | 1.9 - 7.4 K/uL | EXTERNAL | | | Neutrophils | performed at [facility];[address] | | LAB | | | | [address];[place] | | | | | | [address] | | | | + + + + + + | Bands | 0.9 (H)Comment: Testing | 0 - 0.2 K/uL | EXTERNAL | | | Manual | performed at [facility];[address] | | LAB | | | | [address];[place] | | | | | | [address] | | | | + + + + + + | Absolute | 0.4 (H)Comment: Testing | K/uL | EXTERNAL | | | Metamyelocy | performed at [facility];[address] | | LAB | | | [address] | [address];[place] | | | | | | [address] | | | | + + + + + + | Absolute | 0.2 (H)Comment: Testing | K/uL | EXTERNAL | | | Myelocytes | performed at [facility];[address] | | LAB | | | | [address];[place] | | | | | | [address] | | | | + + + + + + | Absolute | 3.0Comment: Testing | 1.0 - 3.9 K/uL | EXTERNAL | | | Lymphocytes | performed at [facility];[address] | | LAB | | | | [address];[place] | | | | | | [address] | | | | + + + + + + | Absolute | 1.9 (H)Comment: Testing | 0 - 0.8 K/uL | EXTERNAL | | | Monocytes | performed at [facility];[address] | | LAB | | | | [address];[place] | | | | | | [address] | | | | + + + + + + | Platelet | ADEQUATEComment: Testing | | EXTERNAL | | | Estimate | performed at [facility];[address] | | LAB | | | | [address];[place] | | | | | | [address] | | | | + + + + + + | RBC | 3+Comment: | | EXTERNAL | | | Morphology | ANISO1+HYPO1+TARGETNORMA | | LAB | | | | L PLT MORPHTesting | | | | | | performed at [facility];[address] | | | | | | [facility], [place] | | | | | | [address] | | | | | |TARGET | | | | | |NORMAL PLT MORPH | | | | | |Testing performed at [facility];[address] [facility];[place] [address] | | | | | | | [...] | | + +---------+ + + Phosphorus (04/21/2014 3:36 PM PST) + + + + + + | Component | Value | Ref Range | Performed | Pathologist | | | | | At | Signature | + + + + + + | PHOSPHORUS | 3.3Comment: Testing | 2.3 - 4.8 mg/dL | EXTERNAL | | | | performed at [facility];[address] | | LAB | | | | [address];[place] | | | | | | [address] | | | | + + + + + + + + | Specimen | + + | Blood specimen | | (specimen) | + + + +---------+ + + | Performing | Address | City/State/Zipcode | Phone Number | | Organization | | | | + +---------+ + + | EXTERNAL LAB | | | | + +---------+ + + Magnesium (04/21/2014 3:36 PM PST) + + + + + + | Component | Value | Ref Range | Performed | Pathologist | | | | | At | Signature | + + + + + + | Magnesium | 1.8Comment: Testing | 1.7 - 2.4 mg/dL | EXTERNAL | | | | performed at [facility];[address] | | LAB | | | | [address];[place] | | | | | | [address] | | | | + + + [...] + +---------+ + + Basic Metabolic Panel (04/21/2014 3:36 PM PST) + + + + + + | Component | Value | Ref Range | Performed | Pathologist | | | | | At | Signature | + + + + + + | Na | 149 (H)Comment: Testing | 135 - 143 | EXTERNAL | | | | performed at [facility];[address] | mmol/L | LAB | | | | [address];[place] | | | | | | [address] | | | | + + + + + + | K | 4.2Comment: Testing | 3.5 - 4.9 | EXTERNAL | | | | performed at [facility];[address] | mmol/L | LAB | | | | [address];[place] | | | | | | [address] | | | | + + + + + + | Cl | 110 (H)Comment: Testing | 99 - 109 mmol/L | EXTERNAL | | | | performed at [facility];[address] | | LAB | | | | [address];[place] | | | | | | [address] | | | | + + + + + + | CO2 | 35 (H)Comment: Testing | 23 - 32 mmol/L | EXTERNAL | | | | performed at [facility];[address] | | LAB | | | | [address];[place] | | | | | | [address] | | | | + + + + + + | Anion Gap | 8Comment: Testing | 5 - 20 mmol/L | EXTERNAL | | | | performed at [facility];[address] | | LAB | | | | [address];[place] | | | | | | [address] | | | | + + + + + + | Glucose, | 120 (H)Comment: Testing | 65 - 99 mg/dL | EXTERNAL | | | Fasting | performed at [facility];[address] | | LAB | | | | [address];[place] | | | | | | [address] | | | | + + + + + + | BUN | 30 (H)Comment: Testing | 8 - 25 mg/dL | EXTERNAL | | | | performed at [facility];[address] | | LAB | | | | [address];[place] | | | | | | [address] | | | | + + + + + + | Creatinine | 0.87Comment: Testing | 0.50 - 1.00 | EXTERNAL | | | | performed at [facility];[address] | mg/dL | LAB | | | | [address];[place] | | | | | | [address] | | | | + + + + + + | BUN/Creatin | 35Comment: Testing | | EXTERNAL | | | ine Ratio | performed at [facility];[address] | | LAB | | | | [address];[place] | | | | | | [address] | | | | + + + + + + | Calcium | 8.0 (L)Comment: Testing | 8.5 - 10.2 | EXTERNAL | | | | performed at [facility];[address] | mg/dL | LAB | | | | [address];[place] | | | | | | [address] | | | | + + + [...] | | | | | | at [facility];[address] [place] [address] | | | | | | [facility];[place] [address] | | | | + + + + + + + + | Specimen | + + | Blood specimen | | (specimen) | + + + +---------+ + + | Performing | Address | City/State/Zipcode | Phone Number | | Organization | | | | + +---------+ + + | EXTERNAL LAB | | | | + +---------+ + + Potassium (04/21/2014 12:42 PM PST) + + + + + + | Component | Value | Ref Range | Performed | Pathologist | | | | | At | Signature | + + + + + + | K | 3.4 (L)Comment: Testing | 3.5 - 4.9 | EXTERNAL | | | | performed at [facility];[address] | mmol/L | LAB | | | | [address];[place], [place] | | | | | | [address] | | | | + + + + + + + + | Specimen | + + | Blood specimen | | (specimen) | + + + +---------+ + + | Performing | Address | City/State/Zipcode | Phone Number | | Organization | | | | + +---------+ + + | EXTERNAL LAB | | | | + +---------+ + + Vancomycin Level (04/21/2014 12:42 PM PST) + + + + + + | Component | Value | Ref Range | Performed | Pathologist | | | | | At | Signature | + + + + + + | Vancomycin | 15.60Comment: Testing | ug/mL | EXTERNAL | | | Random | performed at [facility];[address] | | LAB | | | | [address];[place], [place] | | | | | | [address] | | | | + + + + + + + + | Specimen | + + | Blood specimen | | (specimen) | + + + +---------+ + + | Performing | Address | City/State/Zipcode | Phone Number | | Organization | | | | + +---------+ + + | EXTERNAL LAB | | | | + +---------+ + + POC Glucose (04/21/2014 11:49 AM PST) + + + + + + | Component | Value | Ref Range | Performed | Pathologist | | | | | At | Signature | + + + + + + | Glucose, | 129 (H)Comment: Testing | 65 - 99 mg/dL | EXTERNAL | | | Fingerstick | performed at [facility];[address] | | LAB | | | | [address];[place], [place] | | | | | | [address] | | | | + + + + + + + + | Specimen | + + | | + + + +---------+ + + | Performing | Address | City/State/Zipcode | Phone Number | | Organization | | | | + +---------+ + + | EXTERNAL LAB | | | | + +---------+ + + PTT (04/21/2014 8:50 AM PST) + + + + + + | Component | Value | Ref Range | Performed | Pathologist | | | | | At | Signature | + + + + + + | aPTT, | 58 (H)Comment: Testing | 23 - 32 seconds | EXTERNAL | | | Patient | performed at [facility];[address] | | LAB | | | | [address];[place], [place] | | | | | | [address] | | | | + + + + + + + + | Specimen | + + | Blood specimen | | (specimen) | + + + +---------+ + + | Performing | Address | City/State/Zipcode | Phone Number | | Organization | | | | + +---------+ + + | EXTERNAL LAB | | | | + +---------+ + + POC Glucose (04/21/2014 6:38 AM PST) + + + + + + | Component | Value | Ref Range | Performed | Pathologist | | | | | At | Signature | + + + + + + | Glucose, | 117 (H)Comment: Testing | 65 - 99 mg/dL | EXTERNAL | | | Fingerstick | performed at [facility];[address] | | LAB | | | | [address];[place] | | | | | | [address] | | | | + + + + + + + + | Specimen | + + | | + + + +---------+ + + | Performing | Address | City/State/Zipcode | Phone Number | | Organization | | | | + +---------+ + + | EXTERNAL LAB | | | | + +---------+ + + XR Chest 1 Vw (04/21/2014 5:52 AM PST) + + | Specimen | + + | | + + + + + | Impressions | Performed At | + + + | FINDINGS/ IMPRESSION: Endotracheal tube 5.7 cm above the derrell. | | | Right PICC tip within the lower superior vena cava. Left Mediport | | | catheter tip also within the superior vena cava. No pneumothorax, | | | no pleural effusion. Persistent left lower lobe consolidation | | | consistent with pneumonia or atelectasis. Heart size and | | | mediastinal contours are normal. Right mild basilar atelectasis. | | | | | + + + + + + | Narrative | Performed At | + + + | MACKEN[place]IE HARTLEY 1955 58 years XR CHEST 1 VIEW 04/21/2014 5:52 AM | | | INDICATION: Tube and line position. COMPARISON: April 20 | | | 2014 TECHNIQUE: Chest 1 view, AP view of the chest | | + + + + + | Procedure Note | + + | Judson, Rad Conversion - 11/24/2018 6:38 AM PDT MACKENZIE [id number] yearsXR CHEST 1 | | VIEW04/21/2014 5:52 AM INDICATION: Tube and line position. COMPARISON: April 20, 2014 | | TECHNIQUE: Chest 1 view, AP view of the chest IMPRESSION: FINDINGS/ IMPRESSION: | | Endotracheal tube 5.7 cm above the derrell. Right PICC tip within the lower superior vena | | cava. Left Mediport catheter tip also within the superior vena cava. No pneumothorax, | | no pleural effusion. Persistent left lower lobe consolidation consistent with pneumonia | | or atelectasis. Heart size and mediastinal contours are normal. Right mild basilar | | atelectasis. | |COMPARISON: April 20, 2014 | | | |TECHNIQUE: Chest 1 view, AP view of the chest | | | |IMPRESSION: | |FINDINGS/ IMPRESSION: | | | |Endotracheal tube 5.7 cm above the derrell. Right PICC tip within the lower superior vena ca va. Left Mediport catheter tip also within the superior vena cava. | | | |No pneumothorax, no pleural effusion. | | | |Persistent left lower lobe consolidation consistent with pneumonia or atelectasis. | | | |Heart size and mediastinal contours are normal. | | | |Right mild basilar atelectasis. | | | | | + + Protime INR (04/21/2014 3:49 AM PST) + + + + + [...] | | | | | performed at [facility];[address] | | | | | | [facility];[place], [place] | | | | | | [address] | | | | + + + [...] + +---------+ + + External Lab: RAPHAEL (04/21/2014 3:49 AM PST) + + +---- + + + | Component | Value | Ref Range | Performed | Pathologist | | | | | At | Signature | + + +---- + + + | WBC | 19.2 (H)Comment: Testing | 3.8 - 11.0 K/uL | EXTERNAL | | | | performed at [facility], [address] | | LAB | | | | [address], | | | | | | [place] [address] | | | | + + +---- + + + | Non- | 3.26 (L)Comment: Testing | 3.7 0 - 5.10 | EXTERNAL | | | Red Blood | performed at [facility], [address] | M/u L | LAB | | | Cells | [address], | | | | | Counted | [place] [address] | | | | + + +---- + + + | Hemoglobin | 8.2 (L)Comment: Testing | 11. 3 - 15.5 | EXTERNAL | | | | performed at [facility], [address] | g/d L | LAB | | | | [address], | | | | | | [place] [address] | | | | + + +---- + + + | Hematocrit, | 27.1 (L)Comment: Testing | 34. 0 - 46.0 % | EXTERNAL | | | POC | performed at [facility], [address] | | LAB | | | | [address], | | | | | | [place] [address] | | | | + + +---- + + + | MCV | 83.1Comment: Testing | 80. 0 - 100.0 fl | EXTERNAL | | | | performed at [facility], [address] | | LAB | | | | [address], | | | | | | [place] [address] | | | | + + +---- + + + | MCH | 25.0 (L)Comment: Testing | 27. 0 - 34.0 pg | EXTERNAL | | | | performed at [facility], [address] | | LAB | | | | [address], | | | | | | [place] [address] | | | | + + +---- + + + | MCHC | 30.1 (L)Comment: Testing | 32. 0 - 35.5 | EXTERNAL | | | | performed at [facility], [address] | g/d L | LAB | | | | [address], | | | | | | [place] [address] | | | | + + +---- + + + | RDW-CV | 67.4 (H)Comment: Testing | 37 - 53 fl | EXTERNAL | | | | performed at [facility], [address] | | LAB | | | | [address], | | | | | | [place] [address] | | | | + + +---- + + + | Platelet | 340Comment: Testing | 150 - 400 K/uL | EXTERNAL | | | Count | performed at [facility], [address] | | LAB | | | Plasma | [address], | | | | | | [place] [address] | | | | + + +---- + + + | MPV | 9.2Comment: Testing | fl | EXTERNAL | | | | performed at [facility], [address] | | LAB | | | | [address], | | | | | | [place] [address] | | | | + + +---- + + + | Differentia | MANUALComment: Testing | | EXTERNAL | | | l Type | performed at [facility], [address] | | LAB | | | | [address], | | | | | | [place] [address] | | | | + + +---- + + + | Nucleated | 1 (H)Comment: Testing | /10 0WBC | EXTERNAL | | | Red Blood | performed at [facility], [address] | | LAB | | | Cells | [address], | | | | | | [place] [address] | | | | + + +---- + + + | Segmented | 80Comment: Testing | % | EXTERNAL | | | Neutrophils | performed at [facility], [address] [address] | | LAB | | | Manual | [address], | | | | | | [place] [address] | | | | + + +---- + + + | % | 2Comment: Testing | % | EXTERNAL | | | Metamyelocy | performed at [facility], [address] | | LAB | | | [address] | [address], | | | | | | [place] [address] | | | | + + +---- + + + | % | 1Comment: Testing | % | EXTERNAL | | | Myelocytes | performed at [facility], [address] | | LAB | | | | [address], | | | | | | [place] [address] | | | | + + +---- + + + | Lymphocytes | 7Comment: Testing | % | EXTERNAL | | | Manual | performed at [facility], [address] | | LAB | | | | [address], | | | | | | [place] [address] | | | | + + +---- + + + | Monocytes | 10Comment: Testing | % | EXTERNAL | | | Manual | performed at [facility], [address] | | LAB | | | | [address], | | | | | | [place] [address] | | | | + + +---- + + + | Absolute | 15.4 (H)Comment: Testing | 1.9 - 7.4 K/uL | EXTERNAL | | | Neutrophils | performed at [facility], [address] | | LAB | | | | [address], | | | | | | [place] [address] | | | | + + +---- + + + | Absolute | 0.4 (H)Comment: Testing | K/u L | EXTERNAL | | | Metamyelocy | performed at [facility], [address] | | LAB | | | [address] | [address], | | | | | | [place] [address] | | | | + + +---- + + + | Absolute | 0.2 (H)Comment: Testing | K/u L | EXTERNAL | | | Myelocytes | performed at [facility], [address] | | LAB | | | | [address], | | | | | | [place] [address] | | | | + + +---- + + + | Absolute | 1.3Comment: Testing | 1.0 - 3.9 K/uL | EXTERNAL | | | Lymphocytes | performed at [facility], [address] | | LAB | | | | [address], | | | | | | [place] [address] | | | | + + +---- + + + | Absolute | 1.9 (H)Comment: Testing | 0 - 0.8 K/uL | EXTERNAL | | | Monocytes | performed at [facility], [address] | | LAB | | | | [address], | | | | | | [place] [address] | | | | + + +---- + + + | RBC | 3+Comment: | | EXTERNAL | | | Morphology | ANISO1+TARGETNORMAL PLT | | LAB | | | | MORPHTesting performed | | | | | | at [facility], [address] | | | | | | [address], | | | | | | [place] [address] | | | | | |Testing performed at [facility], [address] [facility], [place] [address] | | | | | | | [...] | | + +---------+ + + Phosphorus (04/21/2014 3:49 AM PST) + + + + + + | Component | Value | Ref Range | Performed | Pathologist | | | | | At | Signature | + + + + + + | PHOSPHORUS | 3.1Comment: Testing | 2.3 - 4.8 mg/dL | EXTERNAL | | | | performed at [facility], [address] | | LAB | | | | [address], | | | | | | [place] [address] | | | | + + + + + + + + | Specimen | + + | Blood specimen | | (specimen) | + + + +---------+ + + | Performing | Address | City/State/Zipcode | Phone Number | | Organization | | | | + +---------+ + + | EXTERNAL LAB | | | | + +---------+ + + Magnesium (04/21/2014 3:49 AM PST) + + + + + + | Component | Value | Ref Range | Performed | Pathologist | | | | | At | Signature | + + + + + + | Magnesium | 2.1Comment: Testing | 1.7 - 2.4 mg/dL | EXTERNAL | | | | performed at [facility], [address] | | LAB | | | | [address], | | | | | | [place] [address] | | | | + + + [...] + +---------+ + + Basic Metabolic Panel (04/21/2014 3:49 AM PST) + + + + + + | Component | Value | Ref Range | Performed | Pathologist | | | | | At | Signature | + + + + + + | Na | 147 (H)Comment: Testing | 135 - 143 | EXTERNAL | | | | performed at [facility], [address] | mmol/L | LAB | | | | [address], | | | | | | [place] [address] | | | | + + + + + + | K | 4.1Comment: Testing | 3.5 - 4.9 | EXTERNAL | | | | performed at [facility], [address] | mmol/L | LAB | | | | [address], | | | | | | [place] [address] | | | | + + + + + + | Cl | 110 (H)Comment: Testing | 99 - 109 mmol/L | EXTERNAL | | | | performed at [facility], [address] | | LAB | | | | [address], | | | | | | [place] [address] | | | | + + + + + + | CO2 | 34 (H)Comment: Testing | 23 - 32 mmol/L | EXTERNAL | | | | performed at [facility], [address] | | LAB | | | | [address], | | | | | | [place] [address] | | | | + + + + + + | Anion Gap | 7Comment: Testing | 5 - 20 mmol/L | EXTERNAL | | | | performed at [facility], [address] | | LAB | | | | [address], | | | | | | [place] [address] | | | | + + + + + + | Glucose, | 133 (H)Comment: Testing | 65 - 99 mg/dL | EXTERNAL | | | Fasting | performed at [facility], [address] | | LAB | | | | [address], | | | | | | [place] [address] | | | | + + + + + + | BUN | 29 (H)Comment: Testing | 8 - 25 mg/dL | EXTERNAL | | | | performed at [facility], [address] | | LAB | | | | [address], | | | | | | [place] [address] | | | | + + + + + + | Creatinine | 0.61Comment: Testing | 0.50 - 1.00 | EXTERNAL | | | | performed at [facility], [address] | mg/dL | LAB | | | | [address], | | | | | | [place] [address] | | | | + + + + + + | BUN/Creatin | 48Comment: Testing | | EXTERNAL | | | ine Ratio | performed at [facility], [address] | | LAB | | | | [address], | | | | | | [place] [address] | | | | + + + + + + | Calcium | 8.3 (L)Comment: Testing | 8.5 - 10.2 | EXTERNAL | | | | performed at [facility], [address] | mg/dL | LAB | | | | [facility], | | | | | | [place] [address] | | | | + + + [...] | | | | | | at [facility], [address] | | | | | | [employer], | | | | | | [place] [address] | | | | + + + + + + + + | Specimen | + + | Blood specimen | | (specimen) | + + + +---------+ + + | Performing | Address | City/State/Zipcode | Phone Number | | Organization | | | | + +---------+ + + | EXTERNAL LAB | | | | + +---------+ + + PTT (04/21/2014 1:08 AM PST) + + + + + + | Component | Value | Ref Range | Performed | Pathologist | | | | | At | Signature | + + + + + + | aPTT, | 48 (H)Comment: Testing | 23 - 32 seconds | EXTERNAL | | | Patient | performed at [facility];[address] | | LAB | | | | [address];[place] | | | | | | [address] | | | | + + + + + + + + | Specimen | + + | Blood specimen | | (specimen) | + + + +---------+ + + | Performing | Address | City/State/Zipcode | Phone Number | | Organization | | | | + +---------+ + + | EXTERNAL LAB | | | | + +---------+ + + Potassium (04/20/2014 11:53 PM PST) + + + + + + | Component | Value | Ref Range | Performed | Pathologist | | | | | At | Signature | + + + + + + | K | 3.4 (L)Comment: Testing | 3.5 - 4.9 | EXTERNAL | | | | performed at [facility];[address] | mmol/L | LAB | | | | [address];[place], [place] | | | | | | [address] | | | | + + + + + + + + | Specimen | + + | Blood specimen | | (specimen) | + + + +---------+ + + | Performing | Address | City/State/Zipcode | Phone Number | | Organization | | | | + +---------+ + + | EXTERNAL LAB | | | | + +---------+ + + POC Glucose (04/20/2014 11:10 PM PST) + + + + + + | Component | Value | Ref Range | Performed | Pathologist | | | | | At | Signature | + + + + + + | Glucose, | 156 (H)Comment: Testing | 65 - 99 mg/dL | EXTERNAL | | | Fingerstick | performed at [facility];[address] | | LAB | | | | [address];[place] | | | | | | [address] | | | | + + + + + + + + | Specimen | + + | | + + + +---------+ + + | Performing | Address | City/State/Zipcode | Phone Number | | Organization | | | | + +---------+ + + | EXTERNAL LAB | | | | + +---------+ + + PTT (04/20/2014 8:08 PM PST) + + + + + + | Component | Value | Ref Range | Performed | Pathologist | | | | | At | Signature | + + + + + + | aPTT, | 84 ()Comment: RESULTS | 23 - 32 seconds | EXTERNAL | | | Patient | CALLED TO NAHUN V/ICU | | LAB | | | | @2111T BY TLSREAD BACK | | | | | | RESULTS VERIFIEDTesting | | | | | | performed at [facility] | | | | | | [address];[place] | | | | | | [address] | | | | + + + + + + + + | Specimen | + + | Blood specimen | | (specimen) | + + + +---------+ + + | Performing | Address | City/State/Zipcode | Phone Number | | Organization | | | | + +---------+ + + | EXTERNAL LAB | | | | + +---------+ + + PTT (04/20/2014 6:10 PM PST) + + + + + + | Component | Value | Ref Range | Performed | Pathologist | | | | | At | Signature | + + + + + + | aPTT, | 212 ()Comment: RESULTS | 23 - 32 seconds | EXTERNAL | | | Patient | CALLED TO TAYLOR G/ICU | | LAB | | | | @1848T BY TLSREAD BACK | | | | | | RESULTS VERIFIEDTesting | | | | | | performed at [facility];[address] | | | | | | [address] [facility];[place], [place] | | | | | | [address] | | | | + + + + + + + + | Specimen | + + | Blood specimen | | (specimen) | + + + +---------+ + + | Performing | Address | City/State/Zipcode | Phone Number | | Organization | | | | + +---------+ + + | EXTERNAL LAB | | | | + +---------+ + + Potassium (04/20/2014 6:10 PM PST) + + + + + + | Component | Value | Ref Range | Performed | Pathologist | | | | | At | Signature | + + + + + + | K | 3.8Comment: Testing | 3.5 - 4.9 | EXTERNAL | | | | performed at [facility];[address] | mmol/L | LAB | | | | [address];[place], [place] | | | | | | [address] | | | | + + + + + + + + | Specimen | + + | Blood specimen | | (specimen) | + + + +---------+ + + | Performing | Address | City/State/Zipcode | Phone Number | | Organization | | | | + +---------+ + + | EXTERNAL LAB | | | | + +---------+ + + Magnesium (04/20/2014 6:10 PM PST) + + + + + + | Component | Value | Ref Range | Performed | Pathologist | | | | | At | Signature | + + + + + + | Magnesium | 2.4Comment: Testing | 1.7 - 2.4 mg/dL | EXTERNAL | | | | performed at [facility];[address] | | LAB | | | | [address];[place] | | | | | | [address] | | | | + + + + + + + + | Specimen | + + | Blood specimen | | (specimen) | + + + +---------+ + + | Performing | Address | City/State/Zipcode | Phone Number | | Organization | | | | + +---------+ + + | EXTERNAL LAB | | | | + +---------+ + + POC Glucose (04/20/2014 5:44 PM PST) + + + + + + | Component | Value | Ref Range | Performed | Pathologist | | | | | At | Signature | + + + + + + | Glucose, | 112 (H)Comment: Testing | 65 - 99 mg/dL | EXTERNAL | | | Fingerstick | performed at [facility];[address] | | LAB | | | | [address];[place], [place] | | | | | | [address] | | | | + + + + + + + + | Specimen | + + | | + + + +---------+ + + | Performing | Address | City/State/Zipcode | Phone Number | | Organization | | | | + +---------+ + + | EXTERNAL LAB | | | | + +---------+ + + Potassium (04/20/2014 11:45 AM PST) + + + + + + | Component | Value | Ref Range | Performed | Pathologist | | | | | At | Signature | + + + + + + | K | 3.4 (L)Comment: Testing | 3.5 - 4.9 | EXTERNAL | | | | performed at [facility];[address] | mmol/L | LAB | | | | [address];[place], [place] | | | | | | [address] | | | | + + + + + + + + | Specimen | + + | Blood specimen | | (specimen) | + + + +---------+ + + | Performing | Address | City/State/Zipcode | Phone Number | | Organization | | | | + +---------+ + + | EXTERNAL LAB | | | | + +---------+ + + Phosphorus (04/20/2014 11:45 AM PST) + + + + + + | Component | Value | Ref Range | Performed | Pathologist | | | | | At | Signature | + + + + + + | PHOSPHORUS | 3.8Comment: Testing | 2.3 - 4.8 mg/dL | EXTERNAL | | | | performed at [facility];[address] | | LAB | | | | [address];[place], [place] | | | | | | [address] | | | | + + + + + + + + | Specimen | + + | Blood specimen | | (specimen) | + + + +---------+ + + | Performing | Address | City/State/Zipcode | Phone Number | | Organization | | | | + +---------+ + + | EXTERNAL LAB | | | | + +---------+ + + Magnesium (04/20/2014 11:45 AM PST) + + + + + + | Component | Value | Ref Range | Performed | Pathologist | | | | | At | Signature | + + + + + + | Magnesium | 2.1Comment: Testing | 1.7 - 2.4 mg/dL | EXTERNAL | | | | performed at [facility];[address] | | LAB | | | | [address];[place] | | | | | | [address] | | | | + + + + + + + + | Specimen | + + | Blood specimen | | (specimen) | + + + +---------+ + + | Performing | Address | City/State/Zipcode | Phone Number | | Organization | | | | + +---------+ + + | EXTERNAL LAB | | | | + +---------+ + + POC Glucose (04/20/2014 11:35 AM PST) + + + + + + | Component | Value | Ref Range | Performed | Pathologist | | | | | At | Signature | + + + + + + | Glucose, | 110 (H)Comment: Testing | 65 - 99 mg/dL | EXTERNAL | | | Fingerstick | performed at [facility];[address] | | LAB | | | | [address];[place], [place] | | | | | | [address] | | | | + + + + + + + + | Specimen | + + | | + + + +---------+ + + | Performing | Address | City/State/Zipcode | Phone Number | | Organization | | | | + +---------+ + + | EXTERNAL LAB | | | | + +---------+ + + Echo Limited (04/20/2014 10:10 AM PST) + + | Specimen | + + | | + + + + + | Impressions | Performed At | + + + | 1. Overall left ventricular systolic function is normal with, an EF | | | between 60 - 65 %. 2. The right ventricle is normal in size and | | | function. 3. No signficant valvular abnormalities are noted. 3. A | | | small to moderate-sized left pleural effusion is present. | | + + + + + + | Narrative | Performed At | + + + | Patient Name: MACKENZIE HARTLEY Date of : 1955 | | | Performing Physician: SANDOVAL KO MD | | | | | | INDICATIONS respiratory failure CONCLUSIONS | | | 1. Overall left ventricular systolic function is normal | | | with, an EF between 60 - 65 %. 2. The right ventricle is normal in | | | size and function. 3. No signficant valvular abnormalities are | | | noted. 3. A small to moderate-sized left pleural effusion is present. | | | FINDINGS -------- ECG rhythm: Sinus rhythm. Study: A | | | 2-dimensional transthoracic echocardiogram with m-mode, spectral and | | | color flow Doppler was perfomed. Study: This was a technically | | | difficult study with suboptimal views. Left Ventricle: Overall left | | | ventricular systolic function is normal with, an EF between 60 - 65 %. | | | Left Ventricle: The left ventricle cavity size is normal. Left | | | Ventricle: There is mild concentric left ventricular hypertrophy. | | | Left Ventricle: The diastolic filling pattern indicates mildly | | | impaired relaxation consistent with mild dysfunction (Grade I). Right | | | Ventricle: The right ventricle is normal in size and function. Left | | | Atrium: The left atrial size is normal. Right Atrium: The right | | | atrial size is normal. Aortic Valve: The aortic valve is trileaflet | | | and appears structurally normal. Aortic Valve: There is no evidence | | | of aortic regurgitation. Aortic Valve: There is no evidence of aortic | | | stenosis. Mitral Valve: The mitral valve is normal. Mitral Valve: | | | There is trace mitral regurgitation. Mitral Valve: Mild mitral | | | annular calcification present. Tricuspid Valve: The tricuspid valve | | | appears structurally normal. Tricuspid Valve: Trace tricuspid | | | regurgitation present. Tricuspid Valve: Right ventricular systolic | | | pressure (pulmonary artery systolic pressure) is normal at < 35 mmHg. | | | Tricuspid Valve: There is no evidence of pulmonary hypertension. | | | Pulmonic Valve: The pulmonic valve is normal. Pericardium: There is a | | | trivial pericardial effusion present. A small to moderate-sized left | | | p Pericardium: leural effusion is present. IVC/Hepatic Veins: The | | | IVC is normal size (1.5-2.5cm) and collapses >50% with sniff, | | | consistent with central venous pressures of 5-10mmHg. MEASUREMENTS | | | Ao asc: 3.28 cm Ao Diam: 3.02 cm IVC: 1.78 | | | cm LA Diam: 3.47 cm LA Major: 3.40 cm EDV(Teich): 65.88 | | | ml IVSd: 1.45 cm LVIDd: 3.89 cm LVPWd: 1.17 cm LVOT Diam: | | | 1.89 cm %FS: 35.17 % EF(Teich): 65.18 % ESV(Teich): | | | 22.94 ml IVSs: 1.40 cm LVIDs: 2.52 cm LVPWs: 1.79 cm | | | SV(Teich): 42.94 ml RA Major: 3.67 cm RVIDd: 2.92 cm LVEF | | | MOD A2C: 58.36 % SV MOD A2C: 25.10 ml LVEF MOD A4C: 58.00 % | | | SV MOD A4C: 34.51 ml EF Biplane: 58.35 % LVEDV MOD BP: | | | 50.03 ml LVESV MOD BP: 20.83 ml LVEDV MOD A2C: 43.01 ml LVLd | | | A2C: 7.22 cm LVEDV MOD A4C: 59.49 ml LVLd A4C: 7.17 cm | | | LVESV MOD A2C: 17.91 ml LVLs A2C: 5.66 cm LVESV MOD A4C: | | | 24.98 ml LVLs A4C: 5.66 cm CO Biplane: 2.31 l/min HR: | | | 79.29 BPM R-R: 756.65 ms LAAs A4C: 23.48 cm2 LAESV A-L A4C: | | | 64.39 ml LAESV MOD A4C: 63.04 ml LALs A4C: 7.27 cm Ao | | | Diam: 3.18 cm AV Cusp: 1.94 cm LA Diam: 3.37 cm LA/Ao: | | | 1.05 D-E Excursion: 1.76 cm E-F Eaton: 0.10 m/s EPSS: 0.24 | | | cm HR: 76.38 BPM AV maxP.32 mmHg AV meanP.53 mmHg | | | AV Vmax: 1.25 m/s AV Vmean: 0.89 m/s AV VTI: 20.35 cm | | | TRINI Vmax: 2.34 cm2 TRINI (VTI): 2.64 cm2 LVCI Dopp: 2.21 | | | l/minm2 LVCO Dopp: 4.15 l/min HR: 77.06 BPM LVOT maxPG: | | | 4.39 mmHg LVOT meanP.25 mmHg LVSI Dopp: 28.69 ml/m2 LVSV | | | Dopp: 53.93 ml LVOT Vmax: 1.04 m/s LVOT Vmean: 0.69 m/s | | | LVOT VTI: 19.21 cm MCO: 460.20 ms MV A Sheri: 0.58 m/s MV | | | DecT: 219.45 ms MV E Sheri: 0.67 m/s MV E/A Ratio: 1.14 MV | | | PHT: 68.75 ms MVA By PHT: 3.19 cm2 MV A Dur: 103.80 ms | | | IVRT: 148.78 ms Septal e': 0.06 m/s Septal E/e': 10.75 | | | Lateral e': 0.10 m/s Lateral E/e': 6.11 HR: 77.06 BPM PV | | | maxP.84 mmHg PV meanP.53 mmHg PV Vmax: 0.97 m/s PV | | | Vmean: 0.57 m/s PV VTI: 20.25 cm RAP: 10 mmHg RVSP: | | | 20.67 mmHg TR maxP.67 mmHg TR Vmax: 1.63 m/s | | | Beef Farmer: GD Authenticated by: SANDOVAL KO MD Report | | | Date/Time: 04-20-2014 18:02:29 | | + + + + + | Procedure Note | + + | Tez Roper Conversion - 11/24/2018 6:38 AM PDT Patient Name: Arpita HARTLEY of | | : 1955 Performing Physician: SANDOVAL KO, | | INDICATIONS r | | espiratory failure CONCLUSIONS 1. Overall left ventricular systolic function | | is normal with, an EF between 60 - 65 %.2. The right ventricle is normal in size and | | function. 3. No signficant valvular abnormalities are noted.3. A small to | | moderate-sized left pleural effusion is present. FINDINGS--------ECG rhythm: Sinus | | rhythm.Study: A 2-dimensional transthoracic echocardiogram with m-mode, spectral and | | color flow Doppler was perfomed.Study: This was a technically difficult study with | | suboptimal views.Left Ventricle: Overall left ventricular systolic function is normal | | with, an EF between 60 - 65 %.Left Ventricle: The left ventricle cavity size is | | normal.Left Ventricle: There is mild concentric left ventricular hypertrophy.Left | | Ventricle: The diastolic filling pattern indicates mildly impaired relaxation consistent | | with mild dysfunction (Grade I).Right Ventricle: The right ventricle is normal in size | | and function.Left Atrium: The left atrial size is normal.Right Atrium: The right atrial | | size is normal.Aortic Valve: The aortic valve is trileaflet and appears structurally | | normal.Aortic Valve: There is no evidence of aortic regurgitation.Aortic Valve: There is | | no evidence of aortic stenosis.Mitral Valve: The mitral valve is normal.Mitral Valve: | | There is trace mitral regurgitation.Mitral Valve: Mild mitral annular calcification | | present.Tricuspid Valve: The tricuspid valve appears structurally normal.Tricuspid | | Valve: Trace tricuspid regurgitation present.Tricuspid Valve: Right ventricular systolic | | pressure (pulmonary artery systolic pressure) is normal at < 35 mmHg.Tricuspid Valve: | | There is no evidence of pulmonary hypertension.Pulmonic Valve: The pulmonic valve is | | normal.Pericardium: There is a trivial pericardial effusion present. A small to | | moderate-sized left pPericardium: leural effusion is present.IVC/Hepatic Veins: The IVC | | is normal size (1.5-2.5cm) and collapses >50% with sniff, consistent with central venous | | pressures of 5-10mmHg. MEASUREMENTS Ao asc: 3.28 cmAo Diam: 3.02 cmIVC: | | 1.78 cmLA Diam: 3.47 cmLA Major: 3.40 cmEDV(Teich): 65.88 mlIVSd: 1.45 | | cmLVIDd: 3.89 cmLVPWd: 1.17 cmLVOT Diam: 1.89 cm%FS: 35.17 %EF(Teich): 65.18 | | %ESV(Teich): 22.94 mlIVSs: 1.40 cmLVIDs: 2.52 cmLVPWs: 1.79 cmSV(Teich): 42.94 | | mlRA Major: 3.67 cmRVIDd: 2.92 cmLVEF MOD A2C: 58.36 %SV MOD A2C: 25.10 mlLVEF | | MOD A4C: 58.00 %SV MOD A4C: 34.51 mlEF Biplane: 58.35 %LVEDV MOD BP: 50.03 | | mlLVESV MOD BP: 20.83 mlLVEDV MOD A2C: 43.01 mlLVLd A2C: 7.22 cmLVEDV MOD A4C: | | 59.49 mlLVLd A4C: 7.17 cmLVESV MOD A2C: 17.91 mlLVLs A2C: 5.66 cmLVESV MOD A4C: | | 24.98 mlLVLs A4C: 5.66 cmCO Biplane: 2.31 l/minHR: 79.29 BPMR-R: 756.65 msLAAs | | A4C: 23.48 [id number] A-L A4C: 64.39 mlLAESV MOD A4C: 63.04 mlLALs A4C: 7.27 cmAo | | Diam: 3.18 cmAV Cusp: 1.94 cmLA Diam: 3.37 cmLA/Ao: 1.05D-E Excursion: 1.76 | | cmE-F Eaton: 0.10 m/sEPSS: 0.24 cmHR: 76.38 BPMAV maxP.32 mmHgAV meanPG: | | 3.53 mmHgAV Vmax: 1.25 m/Christine Vmean: 0.89 m/Christine VTI: 20.35 cmAVA Vmax: 2.34 | | cm2AVA (VTI): 2.64 [id number] Dopp: 2.21 l/[id number] Dopp: 4.15 l/minHR: 77.06 | | BPMLVOT maxP.39 mmHgLVOT meanP.25 mmHgLVSI Dopp: 28.69 ml/m2LVSV Dopp: | | 53.93 mlLVOT Vmax: 1.04 m/sLVOT Vmean: 0.69 m/sLVOT VTI: 19.21 cmMCO: 460.20 | | msMV A Sheri: 0.58 m/sMV DecT: 219.45 msMV E Sheri: 0.67 m/sMV E/A Ratio: 1.14MV | | PHT: 68.75 msMVA By PHT: 3.19 cm2MV A Dur: 103.80 msIVRT: 148.78 msSeptal e': | | 0.06 m/sSeptal E/e': 10.75Lateral e': 0.10 m/sLateral E/e': 6.11HR: 77.06 BPMPV | | maxP.84 mmHgPV meanP.53 mmHgPV Vmax: 0.97 m/sPV Vmean: 0.57 m/sPV VTI: | | 20.25 cmRAP: 10 mmHgRVSP: 20.67 mmHgTR maxP.67 mmHgTR Vmax: 1.63 m/s | | Beef Farmer: Asimticated by: Stevan ASKEW Date/Time: 04-20-2014 18:02:29 | | IMPRESSION: 1. Overall left ventricular systolic function is normal with, an EF between | | 60 - 65 %.2. The right ventricle is normal in size and function. 3. No signficant | | valvular abnormalities are noted.3. A small to moderate-sized left pleural effusion is | | present. | |EDV(Teich): 65.88 ml | |IVSd: 1.45 cm | |LVIDd: 3.89 cm | |LVPWd: 1.17 cm | |LVOT Diam: 1.89 cm | |%FS: 35.17 % | |EF(Teich): 65.18 % | |ESV(Teich): 22.94 ml | |IVSs: 1.40 cm | |LVIDs: 2.52 cm | |LVPWs: 1.79 cm | |SV(Teich): 42.94 ml | |RA Major: 3.67 cm | |RVIDd: 2.92 cm | |LVEF MOD A2C: 58.36 % | |SV MOD A2C: 25.10 ml | |LVEF MOD A4C: 58.00 % | |SV MOD A4C: 34.51 ml | |EF Biplane: 58.35 % | |LVEDV MOD BP: 50.03 ml | |LVESV MOD BP: 20.83 ml | |LVEDV MOD A2C: 43.01 ml | |LVLd A2C: 7.22 cm | |LVEDV MOD A4C: 59.49 ml | |LVLd A4C: 7.17 cm | |LVESV MOD A2C: 17.91 ml | |LVLs A2C: 5.66 cm | |LVESV MOD A4C: 24.98 ml | |LVLs A4C: 5.66 cm | |CO Biplane: 2.31 l/min | |HR: 79.29 BPM | |R-R: 756.65 ms | |LAAs A4C: 23.48 cm2 | |LAESV A-L A4C: 64.39 ml | |LAESV MOD A4C: 63.04 ml | |LALs A4C: 7.27 cm | |Ao Diam: 3.18 cm | |AV Cusp: 1.94 cm | |LA Diam: 3.37 cm | |LA/Ao: 1.05 | |D-E Excursion: 1.76 cm | |E-F Eaton: 0.10 m/s | |EPSS: 0.24 cm | |HR: 76.38 BPM | |AV maxP.32 mmHg | |AV meanP.53 mmHg | |AV Vmax: 1.25 m/s | |AV Vmean: 0.89 m/s | |AV VTI: 20.35 cm | |TRINI Vmax: 2.34 cm2 | |TRINI (VTI): 2.64 cm2 | |LVCI Dopp: 2.21 l/minm2 | |LVCO Dopp: 4.15 l/min | |HR: 77.06 BPM | |LVOT maxP.39 mmHg | |LVOT meanP.25 mmHg | |LVSI Dopp: 28.69 ml/m2 | |LVSV Dopp: 53.93 ml | |LVOT Vmax: 1.04 m/s | |LVOT Vmean: 0.69 m/s | |LVOT VTI: 19.21 cm | |MCO: 460.20 ms | |MV A Sheri: 0.58 m/s | |MV DecT: 219.45 ms | |MV E Sheri: 0.67 m/s | |MV E/A Ratio: 1.14 | |MV PHT: 68.75 ms | |MVA By PHT: 3.19 cm2 | |MV A Dur: 103.80 ms | |IVRT: 148.78 ms | |Septal e': 0.06 m/s | |Septal E/e': 10.75 | |Lateral e': 0.10 m/s | |Lateral E/e': 6.11 | |HR: 77.06 BPM | |PV maxP.84 mmHg | |PV meanP.53 mmHg | |PV Vmax: 0.97 m/s | |PV Vmean: 0.57 m/s | |PV VTI: 20.25 cm | |RAP: 10 mmHg | |RVSP: 20.67 mmHg | |TR maxP.67 mmHg | |TR Vmax: 1.63 m/s | | | |Beef Farmer: GD | |Authenticated by: SANDOVAL KO MD | |Report Date/Time: 04-20-2014 18:02:29 | | | |IMPRESSION: | |1. Overall left ventricular systolic function is normal with, an EF between 60 - 65 %. | |2. The right ventricle is normal in size and function. 3. No signficant valvular abnormali ties are noted. | |3. A small to moderate-sized left pleural effusion is present. | + + PTT (04/20/2014 9:40 AM PST) + + + + + + | Component | Value | Ref Range | Performed | Pathologist | | | | | At | Signature | + + + + + + | aPTT, | 110 ()Comment: CALLED | 23 - 32 seconds | EXTERNAL | | | Patient | TO [facility] A IN ICU AT 1020 | | LAB | | | | BY Festicket BACK RESULTS | | | | | | VERIFIEDTesting | | | | | | performed at [facility];[address] | | | | | | [address];[place] | | | | | | [address] | | | | + + + + + + + + | Specimen | + + | Blood specimen | | (specimen) | + + + +---------+ + + | Performing | Address | City/State/Zipcode | Phone Number | | Organization | | | | + +---------+ + + | EXTERNAL LAB | | | | + +---------+ + + XR Chest 1 Vw (04/20/2014 5:43 AM PST) + + | Specimen | + + | | + + + + + | Impressions | Performed At | + + + | 1. Improving bibasilar opacities with persistent airspace disease | | | in the left lung base. 2. Improving reticular interstitial | | | opacities which may be on the basis of edema and and/or infection. | | | | | + + + + + + | Narrative | Performed At | + + + | MACKENZIE YOUNG XR CHEST 1 VIEW HISTORY: 58 years. Female. | | | Evaluate tubes and lines. TECHNIQUE: Single portable anterior | | | view of the chest was obtained. COMPARISON: 04/19/2014 | | | FINDINGS: Heart is stable in size. Endotracheal tube and nasogastric | | | tube are in stable position. Right-sided PICC line catheter tip | | | located in region superior vena cava. Left-sided Mediport catheter tip | | | also located in the superior vena cava. No pneumothorax. Improving | | | bibasilar opacities with persistent retrocardiac opacity in the left | | | side. Question tiny bilateral pleural effusions. | | + + + + + | Procedure Note | + + | Judson, Rad Conversion - 11/24/2018 6:38 AM PDT MACKENZIE GIL CHEST 1 VIEW HISTORY:58 | | years. Female. Evaluate tubes and lines. TECHNIQUE:Single portable anterior view of the | | chest was obtained. COMPARISON:04/19/2014 FINDINGS:Heart is stable in size. Endotracheal | | tube and nasogastric tube are in stable position. Right-sided PICC line catheter tip | | located in region superior vena cava. Left-sided Mediport catheter tip also located in | | the superior vena cava. No pneumothorax. Improving bibasilar opacities with persistent | | retrocardiac opacity in the left side. Question tiny bilateral pleural effusions. | | IMPRESSION: 1. Improving bibasilar opacities with persistent airspace disease in the | | left lung base.2. Improving reticular interstitial opacities which may be on the basis | | of edema and and/or infection. | | 8:17 AM | | | |FINDINGS: | |Heart is stable in size. Endotracheal tube and nasogastric tube are in stable position. Rig ht-sided PICC line catheter tip located in region superior vena cava. Left-sided Mediport ca theter tip also located in the superior vena cava. No pneumothorax. | |Improving bibasilar opacities with persistent retrocardiac opacity in the left side. Questi on tiny bilateral pleural effusions. | | | |IMPRESSION: | |1. Improving bibasilar opacities with persistent airspace disease in the left lung base. | |2. Improving reticular interstitial opacities which may be on the basis of edema and and/o r infection. | | | | | + + Phosphorus (04/20/2014 5:08 AM PST) + + + + + + | Component | Value | Ref Range | Performed | Pathologist | | | | | At | Signature | + + + + + + | PHOSPHORUS | 3.8Comment: Testing | 2.3 - 4.8 mg/dL | EXTERNAL | | | | performed at [facility], [address] | | LAB | | | | [address], | | | | | | [place] [address] | | | | + + + + + + + + | Specimen | + + | Blood specimen | | (specimen) | + + + +---------+ + + | Performing | Address | City/State/Zipcode | Phone Number | | Organization | | | | + +---------+ + + | EXTERNAL LAB | | | | + +---------+ + + Magnesium (04/20/2014 5:08 AM PST) + + + + + + | Component | Value | Ref Range | Performed | Pathologist | | | | | At | Signature | + + + + + + | Magnesium | 1.8Comment: Testing | 1.7 - 2.4 mg/dL | EXTERNAL | | | | performed at [facility], [address] | | LAB | | | | [address], | | | | | | [place] [address] | | | | + + + + + + + + | Specimen | + + | Blood specimen | | (specimen) | + + + +---------+ + + | Performing | Address | City/State/Zipcode | Phone Number | | Organization | | | | + +---------+ + + | EXTERNAL LAB | | | | + +---------+ + + Ammonia (04/20/2014 5:07 AM PST) + + + + + + | Component | Value | Ref Range | Performed | Pathologist | | | | | At | Signature | + + + + + + | Ammonia | 29Comment: Testing | umol/L | EXTERNAL | | | | performed at [facility] | | LAB | | | | [address];[place] | | | | | | [address] | | | | + + + + + + + + | Specimen | + + | Blood specimen | | (specimen) | + + + +---------+ + + | Performing | Address | City/State/Zipcode | Phone Number | | Organization | | | | + +---------+ + + | EXTERNAL LAB | | | | + +---------+ + + POC Glucose (04/20/2014 5:04 AM PST) + + + + + + | Component | Value | Ref Range | Performed | Pathologist | | | | | At | Signature | + + + + + + | Glucose, | 156 (H)Comment: Testing | 65 - 99 mg/dL | EXTERNAL | | | Fingerstick | performed at [facility];[address] | | LAB | | | | [address];[place] | | | | | | [address] | | | | + + + + + + + + | Specimen | + + | | + + + +---------+ + + | Performing | Address | City/State/Zipcode | Phone Number | | Organization | | | | + +---------+ + + | EXTERNAL LAB | | | | + +---------+ + + External Lab: CBC (04/20/2014 4:30 AM PST) + + +---- + + + | Component | Value | Ref Range | Performed | Pathologist | | | | | At | Signature | + + +---- + + + | WBC | 21.3 (H)Comment: Testing | 3.8 - 11.0 K/uL | EXTERNAL | | | | performed at [facility], [address] | | LAB | | | | [address], | | | | | | [place] [address] | | | | + + +---- + + + | Non- | 3.57 (L)Comment: Testing | 3.7 0 - 5.10 | EXTERNAL | | | Red Blood | performed at [facility], [address] | M/u L | LAB | | | Cells | [address], | | | | | Counted | [place] [address] | | | | + + +---- + + + | Hemoglobin | 8.9 (L)Comment: Testing | 11. 3 - 15.5 | EXTERNAL | | | | performed at [facility], [address] | g/d L | LAB | | | | [address], | | | | | | [place] [address] | | | | + + +---- + + + | Hematocrit, | 29.8 (L)Comment: Testing | 34. 0 - 46.0 % | EXTERNAL | | | POC | performed at [facility], [address] | | LAB | | | | [address], | | | | | | [place] [address] | | | | + + +---- + + + | MCV | 83.5Comment: Testing | 80. 0 - 100.0 fl | EXTERNAL | | | | performed at [facility], [address] | | LAB | | | | [address], | | | | | | [place] [address] | | | | + + +---- + + + | MCH | 24.9 (L)Comment: Testing | 27. 0 - 34.0 pg | EXTERNAL | | | | performed at [facility], [address] | | LAB | | | | [address], | | | | | | [place] [address] | | | | + + +---- + + + | MCHC | 29.9 (L)Comment: Testing | 32. 0 - 35.5 | EXTERNAL | | | | performed at [facility], [address] | g/d L | LAB | | | | [address], | | | | | | [place] [address] | | | | + + +---- + + + | RDW-CV | 67.8 (H)Comment: Testing | 37 - 53 fl | EXTERNAL | | | | performed at [facility], [address] | | LAB | | | | [address], | | | | | | [place] [address] | | | | + + +---- + + + | Platelet | 373Comment: Testing | 150 - 400 K/uL | EXTERNAL | | | Count | performed at [facility], [address] | | LAB | | | Plasma | [address], | | | | | | [place] [address] | | | | + + +---- + + + | MPV | 9.3Comment: Testing | fl | EXTERNAL | | | | performed at [facility], [address] | | LAB | | | | [address], | | | | | | [place] [address] | | | | + + +---- + + + | Differentia | MANUALComment: Testing | | EXTERNAL | | | l Type | performed at [facility], [address] | | LAB | | | | [address], | | | | | | [place] [address] | | | | + + +---- + + + | Nucleated | 3 (H)Comment: Testing | /10 0WBC | EXTERNAL | | | Red Blood | performed at [facility], [address] | | LAB | | | Cells | [address], | | | | | | [place] [address] | | | | + + +---- + + + | Segmented | 71Comment: Testing | % | EXTERNAL | | | Neutrophils | performed at [facility], [address] | | LAB | | | Manual | [address], | | | | | | [place] [address] | | | | + + +---- + + + | % Bands | 2Comment: Testing | % | EXTERNAL | | | | performed at [facility], [address] | | LAB | | | | [address], | | | | | | [place] [address] | | | | + + +---- + + + | Lymphocytes | 17Comment: Testing | % | EXTERNAL | | | Manual | performed at [facility], [address] | | LAB | | | | [address], | | | | | | [place] [address] | | | | + + +---- + + + | Monocytes | 9Comment: Testing | % | EXTERNAL | | | Manual | performed at [facility], [address] | | LAB | | | | [address], | | | | | | [place] [address] | | | | + + +---- + + + | Eosinophils | 1Comment: Testing | % | EXTERNAL | | | Manual | performed at [facility], [address] | | LAB | | | | [address], | | | | | | [place] [address] | | | | + + +---- + + + | Absolute | 15.2 (H)Comment: Testing | 1.9 - 7.4 K/uL | EXTERNAL | | | Neutrophils | performed at [facility], [address] | | LAB | | | | [address], | | | | | | [place] [address] | | | | + + +---- + + + | Bands | 0.4 (H)Comment: Testing | 0 - 0.2 K/uL | EXTERNAL | | | Manual | performed at [facility], [address] | | LAB | | | | [address], | | | | | | [place] [address] | | | | + + +---- + + + | Absolute | 3.6Comment: Testing | 1.0 - 3.9 K/uL | EXTERNAL | | | Lymphocytes | performed at [facility], [address] | | LAB | | | | [address], | | | | | | [place] [address] | | | | + + +---- + + + | Absolute | 1.9 (H)Comment: Testing | 0 - 0.8 K/uL | EXTERNAL | | | Monocytes | performed at [facility], [address] | | LAB | | | | [address], | | | | | | [place] [address] | | | | + + +---- + + + | Absolute | 0.2Comment: Testing | 0 - 0.5 K/uL | EXTERNAL | | | Eosinophils | performed at [facility], [address] | | LAB | | | | [address], | | | | | | [place] [address] | | | | + + +---- + + + | RBC | 2+Comment: | | EXTERNAL | | | Morphology | ANISO1+POIK2+HYPO1+MICRO | | LAB | | | | 1+TARGETNORMAL PLT | | | | | | MORPHTesting performed | | | | | | at [facility], [address] | | | | | | [address], | | | | | | [place] [address] | | | | | |1+ | | | | | |MICRO | | | | | |1+ | | | | | |TARGET | | | | | |NORMAL PLT MORPH | | | | | |Testing performed at [facility], [address] [place] [address], [place] [address] | | | | | | | | | | + + +---- + + + | Differentia | SMUDGE CELLSComment: | | EXTERNAL | | | l Comments | Testing performed at | | LAB | | | | [facility], [address] [facility] | | | | | | [place] | | | | | | [address] | | | | + + +---- + + + + + | Specimen | + + | Blood specimen | | (specimen) | + + + +---------+ + + | Performing | Address | City/State/Zipcode | Phone Number | | Organization | | | | + +---------+ + + | EXTERNAL LAB | | | | + +---------+ + + Lactic Acid (04/20/2014 3:13 AM PST) + + + + + + | Component | Value | Ref Range | Performed | Pathologist | | | | | At | Signature | + + + + + + | Lactate | 1.1Comment: Testing | 0.4 - 2.0 | EXTERNAL | | | | performed at [facility];[address] | mmol/L | LAB | | | | [address];[place] | | | | | | [address] | | | | + + + + + + + + | Specimen | + + | Blood specimen | | (specimen) | + + + +---------+ + + | Performing | Address | City/State/Zipcode | Phone Number | | Organization | | | | + +---------+ + + | EXTERNAL LAB | | | | + +---------+ + + T3, Total and Free (04/20/2014 3:11 AM PST) + + + + + + | Component | Value | Ref Range | Performed | Pathologist | | | | | At | Signature | + + + + + + | T3, Free | 1.8 (L)Comment: Testing | 2.3 - 4.2 pg/mL | EXTERNAL | | | | performed at [facility], [address] | | LAB | | | | [address] | | | | | | [place] [address] | | | | + + + + + + | T3, Total | 102Comment: Testing | 80 - 200 ng/dL | EXTERNAL | | | | performed at [facility], [address] | | LAB | | | | [place] | | | | | | [place] [address] | | | | + + + + + + + + | Specimen | + + | | + + + +---------+ + + | Performing | Address | City/State/Zipcode | Phone Number | | Organization | | | | + +---------+ + + | EXTERNAL LAB | | | | + +---------+ + + Procalcitonin (04/20/2014 3:11 AM PST) + + + + + + | Component | Value | Ref Range | Performed | Pathologist | | | | | At | Signature | + + + + + + | Source | PLASMAComment: Testing | | EXTERNAL | | | | performed at [facility];[address] | | LAB | | | | [address];[place], [place] | | | | | | [address] | | | | + + + + + + | PROCALCITON | <0.05Comment: | ng/mL | EXTERNAL | | | [...] | | | | | | at [facility];[address] [place] [address] | | | | | | [facility];[place] [address] | | | | + + + + + + + + | Specimen | + + | | + + + +---------+ + + | Performing | Address | City/State/Zipcode | Phone Number | | Organization | | | | + +---------+ + + | EXTERNAL LAB | | | | + +---------+ + + CK-MB (04/20/2014 3:11 AM PST) + + + + + -+ | Component | Value | Ref Range | Performed | Pathologist | | | | | At | Signature | + + + + + -+ | CK-MB | 1.2Comment: Testing | 0.5 - 3.6 ng/mL | EXTERNAL | | | | performed at [facility] | | LAB | | | | [address];[place] | | | | | | [address] | | | | + + + + + -+ | CK-MB Index | 3.4Comment: CK INDEX | | EXTERNAL | | [...] | + +---------+ + + Troponin I (04/20/2014 3:11 AM PST) + + + + + + | Component | Value | Ref Range | Performed | Pathologist | | | | | At | Signature | + + + + + + | Troponin I, | 0.193 (H)Comment: 0.00 | 0.00 - 0.10 | EXTERNAL | | | Qual | to 0.10 CONSISTENT | ng/mL | LAB | | | | WITH NORMAL | | | | | | POPULATION0.11 to 0.60 | | | | | | CONSISTENT WITH | | | | | | INCREASED RISK FOR | | | | | | ADVERSE OUTCOMES> 0.60 | | | | | | CONSISTENT | | | | | | WITH WHO CRITERIA FOR | | | | | | ACUTE [place] Testing | | | | | | performed at [facility];[address] | | | | | | [address];[place] | | | | | | [address] | | | | + + + + + + + + | Specimen | + + | Blood specimen | | (specimen) | + + + +---------+ + + | Performing | Address | City/State/Zipcode | Phone Number | | Organization | | | | + +---------+ + + | EXTERNAL LAB | | | | + +---------+ + + Hepatitis Panel, Acute (04/20/2014 3:11 AM PST) + + + + + + | Component | Value | Ref Range | Performed | Pathologist | | | | | At | Signature | + + + + + + | HEP A IGM | NON REACTIVEComment: | | EXTERNAL | | | | Testing performed at | | LAB | | | | [facility], [address] | | | | | | [place] | | | | | | [address] | | | | + + + + + + | HEP B | NON REACTIVEComment: | | EXTERNAL | | | SURFACE | Testing performed at | | LAB | | | ANTIBODY | [facility], [address] | | | | | | [place] | | | | | | [address] | | | | + + + + + + | HEP B CORE | NON REACTIVEComment: | | EXTERNAL | | | IgM | Testing performed at | | LAB | | | | [facility], [address] | | | | | | [place] | | | | | | [address] | | | | + + + + + + | HCV Ab | NON REACTIVEComment: | | EXTERNAL | | | | Testing performed at | | LAB | | | | [facility], [address] | | | | | | [place] | | | | | | [address] | | | | + + + + + + | Hepatitis | No serologic evidence of | | EXTERNAL | | | Interp.: | HAV, HBV, or HCV | | LAB | | | | infection.Comment: | | | | | | Testing performed at | | | | | | [facility], [address] [facility] | | | | | | [place] | | | | | | [address] | | | | + + + + + + + + | Specimen | + + | Blood specimen | | (specimen) | + + + +---------+ + + | Performing | Address | City/State/Zipcode | Phone Number | | Organization | | | | + +---------+ + + | EXTERNAL LAB | | | | + +---------+ + + EVE Profile, Reflex (04/20/2014 3:11 AM PST) + + + + + + | Component | Value | Ref Range | Performed | Pathologist | | | | | At | Signature | + + + + + + | EVE | NEGATIVEComment: A | | EXTERNAL | | | | MULTIPLEX SCREEN FOR 11 | | LAB | | | | AUTOANTIBODIES (DSDNA, | | | | | | SM, RIBOSOMAL | | | | | | P,CHROMATIN, UMBRELLA TIPPER HAND, SM | | | | | | UMBRELLA TIPPER HAND, SCL-70, CENTROMERE | | | | | | B, SSA, SSB AND SHAZIA-1) | | | | | | WASPERFORMED AND NO | | | | | | AUTOANTIBODIES WERE | | | | | | DETECTED.Testing | | | | | | performed at [facility], [address] | | | | | | [facility] | | | | | | [place] [address] | | | | + + + + + + | ANCA Screen | <1:20Comment: REFERENCE | | EXTERNAL | | | | RANGE: <1:20Testing | | LAB | | | | performed at [facility], [address] | | | | | | [place] | | | | | | [place] [address] | | | | + + + + + + | ANCA | 3Comment: NEGATIVE | U/mL | EXTERNAL | | | Proteinase | < 20WEAK | | LAB | | | 3 | TO MOD POS | | | | | | 20-30POSITIVE | | | | | | > 30PR3 | | | | | | ANTIBODY IS A MARKER FOR | | | | | | MISBAH'S | | | | | | GRANULOMATOSIS AND IS | | | | | | RARELYDETECTED IN | | | | | | MICROSCOPIC | | | | | | POLYARTERITIS.THE | | | | | | QUANTITY OF PR3 ANTIBODY | | | | | | GENERALLY PARALLELS | | | | | | DISEASE ACTIVITY,WHERE | | | | | | AN INCREASE IN DISEASE | | | | | | IS ACCOMPANIED BY | | | | | | INCREASING VALUES OFPR3 | | | | | | ANTIBODY.ANTIBODY TO PR3 | | | | | | AN ELASTINOLYTIC NEURAL | | | | | | SERINE PROTEASE, | | | | | | ISRESPONSIBLE FOR THE | | | | | | CYTOPLASMIC PATTERN OF | | | | | | ANTI NEUTROPHIL | | | | | | CYTOPLASMICANTIBODIES.Te | | | | | | sting performed at [facility], | | | | | | [address] | | | | | | [place] [address] | | | | + + + + + + | Myeloperoxi | 3Comment: NEGATIVE | U/mL | EXTERNAL | | | dase | < 20WEAK | | LAB | | | Antibody | TO MOD POS | | | | | | 20-30POSITIVE | | | | | | > 30ANTIBODY | | | | | | TO MPO IS ASSOCIATED | | | | | | WITH ORGAN LIMITED | | | | | | VASCULITIS | | | | | | INCLUDINGNECROTIZING AND | | | | | | CRESCENTIC | | | | | | GLOMERULONEPHRITIS.THIS | | | | | | ASSAY IS USEFUL IN | | | | | | CONFIRMING MPO SPECIFIC | | | | | | ANTIBODIES IN SERATHAT | | | | | | ARE POSITIVE FOR ANTI | | | | | | NEUTROPHIL CYTOPLASMIC | | | | | | ANTIBODIES OF | | | | | | THEPERINUCLEAR | | | | | | TYPE.TYPICALLY THE LEVEL | | | | | | OF MPO ANTIBODY | | | | | | PARALLELS DISEASE | | | | | | ACTIVITIES,WHERE | | | | | | INCREASING DISEASE | | | | | | ACTIVITY IS ASSOCIATED | | | | | | WITH INCREASING | | | | | | MPOANTIBODY | | | | | | LEVELS.Testing performed | | | | | | at [facility], [address] | | | | | | [place] | | | | | | [address] | | | | + + + + + + + + | Specimen | + + | Blood specimen | | (specimen) | + + + +---------+ + + | Performing | Address | City/State/Zipcode | Phone Number | | Organization | | | | + +---------+ + + | EXTERNAL LAB | | | | + +---------+ + + PTT (04/20/2014 3:11 AM PST) + + + + + + | Component | Value | Ref Range | Performed | Pathologist | | | | | At | Signature | + + + + + + | aPTT, | 63 (H)Comment: Testing | 23 - 32 seconds | EXTERNAL | | | Patient | performed at [facility];[address] | | LAB | | | | [address];[place] | | | | | | [address] | | | | + + + + + + + + | Specimen | + + | Blood specimen | | (specimen) | + + + +---------+ + + | Performing | Address | City/State/Zipcode | Phone Number | | Organization | | | | + +---------+ + + | EXTERNAL LAB | | | | + +---------+ + + Protime INR (04/20/2014 3:11 AM PST) + + + + + [...] | | | | | performed at [facility] | | | | | | [facility];[place], [place] | | | | | | [address] | | | | + + + + + + + + | Specimen | + + | Blood specimen | | (specimen) | + + + +---------+ + + | Performing | Address | City/State/Zipcode | Phone Number | | Organization | | | | + +---------+ + + | EXTERNAL LAB | | | | + +---------+ + + Rheumatoid Factor, Quant (04/20/2014 3:11 AM PST) + + + + + + | Component | Value | Ref Range | Performed | Pathologist | | | | | At | Signature | + + + + + + | RHEUMATOID | <5Comment: Testing | IU/mL | EXTERNAL | | | FACTOR | performed at [facility], [address] | | LAB | | | | [address], | | | | | | [place] [address] | | | | + + + + + + + + | Specimen | + + | Blood specimen | | (specimen) | + + + +---------+ + + | Performing | Address | City/State/Zipcode | Phone Number | | Organization | | | | + +---------+ + + | EXTERNAL LAB | | | | + +---------+ + + TSH (04/20/2014 3:11 AM PST) + + + + + + | Component | Value | Ref Range | Performed | Pathologist | | | | | At | Signature | + + + + + + | TSH | 0.39 (L)Comment: Testing | 0.45 - 5.10 | EXTERNAL | | | | performed at [facility], [address] | uIU/mL | LAB | | | | [address], | | | | | | [place] [address] | | | | + + + + + + + + | Specimen | + + | Blood specimen | | (specimen) | + + + +---------+ + + | Performing | Address | City/State/Zipcode | Phone Number | | Organization | | | | + +---------+ + + | EXTERNAL LAB | | | | + +---------+ + + T4, Free (04/20/2014 3:11 AM PST) + + + + + + | Component | Value | Ref Range | Performed | Pathologist | | | | | At | Signature | + + + + + + | FREE T4 | 0.6 (L)Comment: Testing | 0.7 - 1.5 ng/dL | EXTERNAL | | | (REF) | performed at [facility], [address] | | LAB | | | | [address], | | | | | | [place] [address] | | | | + + + + + + + + | Specimen | + + | Blood specimen | | (specimen) | + + + +---------+ + + | Performing | Address | City/State/Zipcode | Phone Number | | Organization | | | | + +---------+ + + | EXTERNAL LAB | | | | + +---------+ + + Prealbumin (04/20/2014 3:11 AM PST) + + + + + + | Component | Value | Ref Range | Performed | Pathologist | | | | | At | Signature | + + + + + + | Prealbumin | 21.6Comment: Testing | 20.0 - 40.0 | EXTERNAL | | | | performed at [facility], [address] | mg/dL | LAB | | | | [address] [place], | | | | | | [place] [address] | | | | + + + + + + + + | Specimen | + + | Blood specimen | | (specimen) | + + + +---------+ + + | Performing | Address | City/State/Zipcode | Phone Number | | Organization | | | | + +---------+ + + | EXTERNAL LAB | | | | + +---------+ + + Magnesium (04/20/2014 3:11 AM PST) + + + + + + | Component | Value | Ref Range | Performed | Pathologist | | | | | At | Signature | + + + + + + | Magnesium | 1.8Comment: Testing | 1.7 - 2.4 mg/dL | EXTERNAL | | | | performed at [facility], [address] | | LAB | | | | [address] [place], | | | | | | [place] [address] | | | | + + + + + + + + | Specimen | + + | Blood specimen | | (specimen) | + + + +---------+ + + | Performing | Address | City/State/Zipcode | Phone Number | | Organization | | | | + +---------+ + + | EXTERNAL LAB | | | | + +---------+ + + Hemoglobin A1C (04/20/2014 3:11 AM PST) + + + + + + | Component | Value | Ref Range | Performed | Pathologist | | | | | At | Signature | + + + + + + | Hemoglobin | 5.4Comment: [facility] [place] | 4.0 - 6.0 % | EXTERNAL | | | A1c | Diabetes Association | | LAB | | | | considers a hemoglobin | | | | | | A1c result of <7.0% to | | | | | | be the goal of diabetic | | | | | | therapy. When results | | | | | | are consistently >8.0%, | | | | | | the ADA suggests | | | | | | reevaluation of the | | | | | | treatment regimen. The | | | | | | testing method used is | | | | | | certified traceable to | | | | | | the Diabetes Control and | | | | | | Complications Trial | | | | | | reference method.Testing | | | | | | performed at [facility], [address] | | | | | [address] [facility], | | | | | | [place] [address] | | | | + + + + + + | Glycohemogl | 108Comment: The ADA | mg/dL | EXTERNAL | | | obin | considers an eAG result | | LAB | | | (GHb),Total | of LT 154 mg/dL to be | | | | | | the goal of diabetic | | | | | | therapy. Estimated | | | | | | Average Glucose | | | | | | calculated from | | | | | | hemoglobin A1c by use of | | | | | | the ADA recommended | | | | | | formula.Testing | | | | | | performed at [facility], [address] | | | | | | [facility], | | | | | | [place] [address] | | | | + + + + + + + + | Specimen | + + | Blood specimen | | (specimen) | + + + +---------+ + + | Performing | Address | City/State/Zipcode | Phone Number | | Organization | | | | + +---------+ + + | EXTERNAL LAB | | | | + +---------+ + + CK Total (04/20/2014 3:11 AM PST) + + + + + + | Component | Value | Ref Range | Performed | Pathologist | | | | | At | Signature | + + + + + + | CK, Total | 35Comment: Testing | 30 - 240 U/L | EXTERNAL | | | | performed at [facility] | | LAB | | | | [address];[place], [place] | | | | | | [address] | | | | + + + + + + + + | Specimen | + + | Blood specimen | | (specimen) | + + + +---------+ + + | Performing | Address | City/State/Zipcode | Phone Number | | Organization | | | | + +---------+ + + | EXTERNAL LAB | | | | + +---------+ + + Hepatic Function Panel (04/20/2014 3:11 AM PST) + + + + + + | Component | Value | Ref Range | Performed | Pathologist | | | | | At | Signature | + + + + + + | Protein, | 4.8 (L)Comment: Testing | 6.3 - 8.2 g/dL | EXTERNAL | | | Total | performed at [facility], [address] | | LAB | | | | [address], | | | | | | [place] [address] | | | | + + + + + + | Albumin | 2.2 (L)Comment: Testing | 3.6 - 5.0 g/dL | EXTERNAL | | | | performed at [facility], [address] | | LAB | | | | [address], | | | | | | [place] [address] | | | | + + + + + + | Bilirubin | 0.5Comment: Testing | 0.1 - 1.5 mg/dL | EXTERNAL | | | Total | performed at [facility], [address] | | LAB | | | | [address], | | | | | | [place] [address] | | | | + + + + + + | Bilirubin | 0.1Comment: Testing | 0.0 - 0.3 mg/dL | EXTERNAL | | | Direct | performed at [facility], [address] | | LAB | | | | [address], | | | | | | [place] [address] | | | | + + + + + + | ALP, | 112Comment: Testing | 35 - 115 U/L | EXTERNAL | | | External | performed at [facility], [address] | | LAB | | | | [address], | | | | | | [place] [address] | | | | + + + + + + | AST | 31Comment: Testing | 10 - 45 U/L | EXTERNAL | | | | performed at [facility], [address] | | LAB | | | | [address], | | | | | | [place] [address] | | | | + + + + + + | ALT | 15Comment: Testing | 10 - 65 U/L | EXTERNAL | | | | performed at [facility], [address] | | LAB | | | | [address], | | | | | | [place] [address] | | | | + + + + + + + + | Specimen | + + | | + + + +---------+ + + | Performing | Address | City/State/Zipcode | Phone Number | | Organization | | | | + +---------+ + + | EXTERNAL LAB | | | | + +---------+ + + Lipid Panel (04/20/2014 3:11 AM PST) + + + + + + | Component | Value | Ref Range | Performed | Pathologist | | | | | At | Signature | + + + + + + | Cholesterol | 163Comment: Testing | mg/dL | EXTERNAL | | | | performed at [facility], [address] | | LAB | | | | [address], | | | | | | [place] [address] | | | | + + + + + + | Triglycerid | 398 (H)Comment: Testing | mg/dL | EXTERNAL | | | es | performed at [facility], [address] | | LAB | | | | [address], | | | | | | [place] [address] | | | | + + + + + + | HDL | 48Comment: Testing | mg/dL | EXTERNAL | | | | performed at [facility], [address] | | LAB | | | | [address], | | | | | | [place] [address] | | | | + + + + + + | LDL, | 35Comment: Testing | mg/dL | EXTERNAL | | | Calculated | performed at [facility], [address] | | LAB | | | | [address], | | | | | | [place] [address] | | | | + + + [...] + +---------+ + + Basic Metabolic Panel (04/20/2014 3:11 AM PST) + + + + + + | Component | Value | Ref Range | Performed | Pathologist | | | | | At | Signature | + + + + + + | Na | 144 (H)Comment: Testing | 135 - 143 | EXTERNAL | | | | performed at [facility], [address] | mmol/L | LAB | | | | [address], | | | | | | [place] [address] | | | | + + + + + + | K | 3.1 (L)Comment: Testing | 3.5 - 4.9 | EXTERNAL | | | | performed at [facility], [address] | mmol/L | LAB | | | | [address], | | | | | | [place] [address] | | | | + + + + + + | Cl | 108Comment: Testing | 99 - 109 mmol/L | EXTERNAL | | | | performed at [facility], [address] | | LAB | | | | [address], | | | | | | [place] [address] | | | | + + + + + + | CO2 | 31Comment: Testing | 23 - 32 mmol/L | EXTERNAL | | | | performed at [facility], [address] | | LAB | | | | [address], | | | | | | [place] [address] | | | | + + + + + + | Anion Gap | 8Comment: Testing | 5 - 20 mmol/L | EXTERNAL | | | | performed at [facility], [address] | | LAB | | | | [address], | | | | | | [place] [address] | | | | + + + + + + | Glucose, | 135 (H)Comment: Testing | 65 - 99 mg/dL | EXTERNAL | | | Fasting | performed at [facility], [address] | | LAB | | | | [address], | | | | | | [place] [address] | | | | + + + + + + | BUN | 25Comment: Testing | 8 - 25 mg/dL | EXTERNAL | | | | performed at [facility], [address] | | LAB | | | | [address], | | | | | | [place] [address] | | | | + + + + + + | Creatinine | 0.58Comment: Testing | 0.50 - 1.00 | EXTERNAL | | | | performed at [facility], [address] | mg/dL | LAB | | | | [address], | | | | | | [place] [address] | | | | + + + + + + | BUN/Creatin | 43Comment: Testing | | EXTERNAL | | | ine Ratio | performed at [facility], [address] | | LAB | | | | [address], | | | | | | [place] [address] | | | | + + + + + + | Calcium | 7.8 (L)Comment: Testing | 8.5 - 10.2 | EXTERNAL | | | | performed at [facility], [address] | mg/dL | LAB | | | | [address], | | | | | | [place] [address] | | | | + + + [...] | | | | | [place] [address] | | | | + + + + + + + + | Specimen | + + | Blood specimen | | (specimen) | + + + +---------+ + + | Performing | Address | City/State/Zipcode | Phone Number | | Organization | | | | + +---------+ + + | EXTERNAL LAB | | | | + +---------+ + + Gram Stain, reflex Sputum Culture (04/19/2014 11:54 PM PST) + + | Specimen | + + | Body fluid sample | | (specimen) | + + + + + | Narrative | Performed At | + + + | Specimen Description SPUTUM GRAM STAIN | EXTERNAL LAB | | GREATER THAN 10 WBCS/LPF | | | LESS THAN 10 SEC/LPF | | | NO ORGANISMS SEEN | | | CULTURE 1+ | | | MATTHIEU | | | ALBICANSAbnormal | | | Testing performed at [facility], [address] [facility] [place] | | | [address] | | + + + + +---------+ + + | Performing | Address | City/State/Zipcode | Phone Number | | Organization | | | | + +---------+ + + | EXTERNAL LAB | | | | + +---------+ + + POC Glucose (04/19/2014 11:16 PM PST) + + + + + + | Component | Value | Ref Range | Performed | Pathologist | | | | | At | Signature | + + + + + + | Glucose, | 109 (H)Comment: Testing | 65 - 99 mg/dL | EXTERNAL | | | Fingerstick | performed at [facility];[address] | | LAB | | | | [address];[place] | | | | | | [address] | | | | + + + + + + + + | Specimen | + + | | + + + +---------+ + + | Performing | Address | City/State/Zipcode | Phone Number | | Organization | | | | + +---------+ + + | EXTERNAL LAB | | | | + +---------+ + + Culture, Urine (04/19/2014 10:47 PM PST) + + | Specimen | + + | Urine specimen | | (specimen) | + + + + + | Narrative | Performed At | + + + | Specimen Description URINE,CLEAN CATCH CULTURE | EXTERNAL LAB | | NO GROWTH | | | Testing performed at [facility], [address] | | | [place] [address] | | + + + + +---------+ + + | Performing | Address | City/State/Zipcode | Phone Number | | Organization | | | | + +---------+ + + | EXTERNAL LAB | | | | + +---------+ + + CT Head wo Contrast (04/19/2014 9:30 PM PST) + + | Specimen | + + | | + + + + + | Impressions | Performed At | + + + | 1. No acute intracranial findings. | | + + + + + + | Narrative | Performed At | + + + | MACKENZIE HARTLEY CT HEAD WO CONTRAST 04/19/2014 9:30 PM HISTORY: 58 | | | years. Female. Acute mental status change. Assess for stroke. | | | TECHNIQUE: 5-mm axial noncontrast images were acquired from the | | | foramen magnum through the cranial vertex. COMPARISON: None. | | | FINDINGS: The brain parenchyma does not demonstrate acute intra-axial | | | hemorrhage, midline shift, mass effect or cerebral edema. The | | | ventricles, cisterns and sulci are normal in size and configuration. | | | Normal galeana-white differentiation is preserved. No extra-axial | | | fluid collections are noted. The orbits and their contents are | | | normal. The paranasal sinuses are well aerated. No mucosal | | | thickening or air-fluid levels are noted. The mastoid air cells show | | | normal pneumatization bilaterally. No mastoid fluid noted. The | | | osseous structures of the calvaria do not demonstrate fracture. No | | | lytic or blastic lesions are noted. Orogastric and endotracheal | | | tubes are noted on the national sales consultant image. | | + + + + + | Procedure Note | + + | Tez Roper Conversion - 11/24/2018 6:38 AM PDT MACKENZIE TROY HEAD WO CONTRAST04/19/2014 | | 9:30 PM HISTORY:58 years. Female. Acute mental status change. Assess for stroke. | | TECHNIQUE:5-mm axial noncontrast images were acquired from the foramen magnum through | | the cranial vertex. COMPARISON:None. FINDINGS:The brain parenchyma does not demonstrate | | acute intra-axial hemorrhage, midline shift, mass effect or cerebral edema. The | | ventricles, cisterns and sulci are normal in size and configuration. Normal galeana-white | | differentiation is preserved. No extra-axial fluid collections are noted. The orbits | | and their contents are normal. The paranasal sinuses are well aerated. No mucosal | | thickening or air-fluid levels are noted. The mastoid air cells show normal | | pneumatization bilaterally. No mastoid fluid noted. The osseous structures of the | | calvaria do not demonstrate fracture. No lytic or blastic lesions are noted. | | Orogastric and endotracheal tubes are noted on the national sales consultant image. IMPRESSION: 1. No acute | | intracranial findings. | |FINDINGS: | |The brain parenchyma does not demonstrate acute intra-axial hemorrhage, midline shift, mass effect or cerebral edema. The ventricles, cisterns and sulci are normal in size and config uration. Normal galeana-white differentiation is preserved. No | |extra-axial fluid collections are noted. The orbits and their contents are normal. The pa ranasal sinuses are well aerated. No mucosal thickening or air-fluid levels are noted. The mastoid air cells show | |normal pneumatization bilaterally. No mastoid | |fluid noted. The osseous structures of the calvaria do not demonstrate fracture. No lytic or blastic lesions are noted. Orogastric and endotracheal tubes are noted on the national sales consultant im age. | | | |IMPRESSION: | |1. No acute intracranial findings. | | | | | + + Culture, Blood (04/19/2014 9:06 PM PST) + + | Specimen | + + | Blood specimen | | (specimen) | + + + + + | Narrative | Performed At | + + + | Specimen Description BLOOD, LINE DRAW SPECIAL | EXTERNAL LAB | | REQUESTS PORT | | | Testing performed at [facility];[address];[place] [address] CULTURE | | | NO GROWTH | | | Testing performed at [facility], [address] [facility], [place], [place] | | | [address] | | + + + + +---------+ + + | Performing | Address | City/State/Zipcode | Phone Number | | Organization | | | | + +---------+ + + | EXTERNAL LAB | | | | + +---------+ + + Helicobacter Pylori AB, IgA (04/19/2014 9:06 PM PST) + + + + + + | Component | Value | Ref Range | Performed | Pathologist | | | | | At | Signature | + + + + + + | H PYLORI | 14.3Comment: 0.0-20.0 | 0.0 - 20.0 | EXTERNAL | | | IGA | NEGATIVE: NO | | LAB | | | | SIGNIFICANT LEVEL OF IGA | | | | | | ANTIBODY TO H. | | | | | | PYLORIDETECTED. A | | | | | | NEGATIVE RESULT | | | | | | INDICATES NO IGA | | | | | | ANTIBODY TO H. PYLORI | | | | | | ORLEVELS BELOW THE | | | | | | DETECTION LIMIT OF THE | | | | | | ASSAY. IF A PRIMARY | | | | | | INFECTIONIS SUSPECTED, | | | | | | ANOTHER SPECIMEN MAY BE | | | | | | COLLECTED IN 4-6 | | | | | | WEEKS.Testing performed | | | | | | at [facility], [address] | | | | | | [place] | | | | | | [address] | | | | + + + + + + + + | Specimen | + + | Blood specimen | | (specimen) | + + + +---------+ + + | Performing | Address | City/State/Zipcode | Phone Number | | Organization | | | | + +---------+ + + | EXTERNAL LAB | | | | + +---------+ + + Phosphorus (04/19/2014 9:06 PM PST) + + + + + + | Component | Value | Ref Range | Performed | Pathologist | | | | | At | Signature | + + + + + + | PHOSPHORUS | 1.8 (L)Comment: Testing | 2.3 - 4.8 mg/dL | EXTERNAL | | | | performed at [facility];[address] | | LAB | | | | [address];[place], [place] | | | | | | [address] | | | | + + + + + + + + | Specimen | + + | Blood specimen | | (specimen) | + + + +---------+ + + | Performing | Address | City/State/Zipcode | Phone Number | | Organization | | | | + +---------+ + + | EXTERNAL LAB | | | | + +---------+ + + Magnesium (04/19/2014 9:06 PM PST) + + + + + + | Component | Value | Ref Range | Performed | Pathologist | | | | | At | Signature | + + + + + + | Magnesium | 2.2Comment: SLT | 1.7 - 2.4 mg/dL | EXTERNAL | | | | HEMOLYSISTesting | | LAB | | | | performed at [facility];[address] | | [address];[place], [place] | | | | | | [address] | | | | + + + [...] + +---------+ + + Basic Metabolic Panel (04/19/2014 9:06 PM PST) + + + + + + | Component | Value | Ref Range | Performed | Pathologist | | | | | At | Signature | + + + + + + | Na | 150 (H)Comment: Testing | 135 - 143 | EXTERNAL | | | | performed at [facility];[address] | mmol/L | LAB | | | | [address];[place] | | | | | | [address] | | | | + + + + + + | K | 4.1Comment: SLT | 3.5 - 4.9 | EXTERNAL | | | | HEMOLYSISTesting | mmol/L | LAB | | | | performed at [facility];[address] | | | | | | [address];[place] | | | | | | [address] | | | | + + + + + + | Cl | 113 (H)Comment: Testing | 99 - 109 mmol/L | EXTERNAL | | | | performed at [facility];[address] | | LAB | | | | [address];[place] | | | | | | [address] | | | | + + + + + + | CO2 | 29Comment: Testing | 23 - 32 mmol/L | EXTERNAL | | | | performed at [facility];[address] | | LAB | | | | [address];[place] | | | | | | [address] | | | | + + + + + + | Anion Gap | 11Comment: Testing | 5 - 20 mmol/L | EXTERNAL | | | | performed at [facility];[address] | | LAB | | | | [address];[place] | | | | | | [address] | | | | + + + + + + | Glucose, | 120 (H)Comment: Testing | 65 - 99 mg/dL | EXTERNAL | | | Fasting | performed at [facility];[address] | | LAB | | | | [address];[place] | | | | | | [address] | | | | + + + + + + | BUN | 25Comment: Testing | 8 - 25 mg/dL | EXTERNAL | | | | performed at [facility];[address] | | LAB | | | | [address];[place] | | | | | | [address] | | | | + + + + + + | Creatinine | 0.72Comment: Testing | 0.50 - 1.00 | EXTERNAL | | | | performed at [facility];[address] | mg/dL | LAB | | | | [address];[place] | | | | | | [address] | | | | + + + + + + | BUN/Creatin | 35Comment: Testing | | EXTERNAL | | | ine Ratio | performed at [facility];[address] | | LAB | | | | [address];[place] | | | | | | [address] | | | | + + + + + + | Calcium | 8.3 (L)Comment: Testing | 8.5 - 10.2 | EXTERNAL | | | | performed at [facility];[address] | mg/dL | LAB | | | | [address];[place], [place] | | | | | | [address] | | | | + + + [...] | | | | | | at [facility];[address];[place] [address] | | | | + + + + + + + + | Specimen | + + | Blood specimen | | (specimen) | + + + +---------+ + + | Performing | Address | City/State/Zipcode | Phone Number | | Organization | | | | + +---------+ + + | EXTERNAL LAB | | | | + +---------+ + + Culture, Blood (04/19/2014 9:03 PM PST) + + | Specimen | + + | Blood specimen | | (specimen) | + + + + + | Narrative | Performed At | + + + | Specimen Description BLOOD, PERIPHERAL DRAW | EXTERNAL LAB | | SPECIAL REQUESTS LAC | | | Testing performed at [facility];[address] | | | [address];[place] [address] CULTURE | | | NO GROWTH | | | Testing performed at [facility], [address] [facility], [place], [place] | | | [address] | | + + + + +---------+ + + | Performing | Address | City/State/Zipcode | Phone Number | | Organization | | | | + +---------+ + + | EXTERNAL LAB | | | | + +---------+ + + POC Glucose (04/19/2014 5:47 PM PST) + + + + + + | Component | Value | Ref Range | Performed | Pathologist | | | | | At | Signature | + + + + + + | Glucose, | 122 (H)Comment: Testing | 65 - 99 mg/dL | EXTERNAL | | | Fingerstick | performed at [facility];[address] | | LAB | | | | [address];[place] | | | | | | [address] | | | | + + + + + + + + | Specimen | + + | | + + + +---------+ + + | Performing | Address | City/State/Zipcode | Phone Number | | Organization | | | | + +---------+ + + | EXTERNAL LAB | | | | + +---------+ + + Vancomycin, Trough (04/19/2014 12:11 PM PST) + + + + + + | Component | Value | Ref Range | Performed | Pathologist | | | | | At | Signature | + + + + + + | Vancomycin | 14.8Comment: 15 to 20 | 10 - 20 ug/mL | EXTERNAL | | | Trough | ug/mL for meningitis, | | LAB | | | | osteomyelitis, | | | | | | endocarditis, sepsis, or | | | | | | healthcare associated | | | | | | pneumonia, or an ELISA | | | | | | equal to or greater than | | | | | | 1.0 ug/mLTesting | | | | | | performed at [facility] | | | | | | [facility];[place], [place] | | | | | | [address] | | | | + + + + + + + + | Specimen | + + | Blood specimen | | (specimen) | + + + +---------+ + + | Performing | Address | City/State/Zipcode | Phone Number | | Organization | | | | + +---------+ + + | EXTERNAL LAB | | | | + +---------+ + + POC Glucose (04/19/2014 12:04 PM PST) + + + + + + | Component | Value | Ref Range | Performed | Pathologist | | | | | At | Signature | + + + + + + | Glucose, | 159 (H)Comment: Testing | 65 - 99 mg/dL | EXTERNAL | | | Fingerstick | performed at [facility];[address] | | LAB | | | | [address];[place] | | | | | | [address] | | | | + + + + + + + + | Specimen | + + | | + + + +---------+ + + | Performing | Address | City/State/Zipcode | Phone Number | | Organization | | | | + +---------+ + + | EXTERNAL LAB | | | | + +---------+ + + HISTORICAL MICROBIOLOGY RESULT (04/19/2014 11:53 AM PST) + + | Specimen | + + | Stool specimen | | (specimen) | + + + + + | Narrative | Performed At | + + + | Toxigenic C Difficile NEGATIVE Testing | EXTERNAL LAB | | performed at [facility];[address] [facility];[place] [address] 027 NAP1 BI | | | 027 NAP1 BI PRESUMPTIVE NEGATIVE | | | Detection of 027 NAP1 BI strains of C. difficile is presumptive and | | | for epidemiological purposes and not intended to guide or monitor | | | treatment for C. difficile infections. Testing performed at [facility];[address] | | | [facility];[place] [address] | | + + + + +---------+ + + | Performing | Address | City/State/Zipcode | Phone Number | | Organization | | | | + +---------+ + + | EXTERNAL LAB | | | | + +---------+ + + Potassium (04/19/2014 8:42 AM PST) + + + + + + | Component | Value | Ref Range | Performed | Pathologist | | | | | At | Signature | + + + + + + | K | 3.0 (L)Comment: Testing | 3.5 - 4.9 | EXTERNAL | | | | performed at [facility];[address] | mmol/L | LAB | | | [address];[place], [place] | | | | | | [address] | | | | + + + + + + + + | Specimen | + + | Blood specimen | | (specimen) | + + + +---------+ + + | Performing | Address | City/State/Zipcode | Phone Number | | Organization | | | | + +---------+ + + | EXTERNAL LAB | | | | + +---------+ + + Phosphorus (04/19/2014 8:42 AM PST) + + + + + + | Component | Value | Ref Range | Performed | Pathologist | | | | | At | Signature | + + + + + + | PHOSPHORUS | 3.0Comment: Testing | 2.3 - 4.8 mg/dL | EXTERNAL | | | | performed at [facility] | | LAB | | | | [address];[place] | | | | | | [address] | | | | + + + + + + + + | Specimen | + + | Blood specimen | | (specimen) | + + + +---------+ + + | Performing | Address | City/State/Zipcode | Phone Number | | Organization | | | | + +---------+ + + | EXTERNAL LAB | | | | + +---------+ + + Magnesium (04/19/2014 8:42 AM PST) + + + + + + | Component | Value | Ref Range | Performed | Pathologist | | | | | At | Signature | + + + + + + | Magnesium | 2.0Comment: Testing | 1.7 - 2.4 mg/dL | EXTERNAL | | | | performed at [facility];[address] | | LAB | | | | [address];[place], [place] | | | | | | [address] | | | | + + + + + + + + | Specimen | + + | Blood specimen | | (specimen) | + + + +---------+ + + | Performing | Address | City/State/Zipcode | Phone Number | | Organization | | | | + +---------+ + + | EXTERNAL LAB | | | | + +---------+ + + POC Glucose (04/19/2014 5:58 AM PST) + + + + + + | Component | Value | Ref Range | Performed | Pathologist | | | | | At | Signature | + + + + + + | Glucose, | 194 (H)Comment: Testing | 65 - 99 mg/dL | EXTERNAL | | | Fingerstick | performed at [facility];[address] | | LAB | | | | [address];[place] | | | | | | [address] | | | | + + + + + + + + | Specimen | + + | | + + + +---------+ + + | Performing | Address | City/State/Zipcode | Phone Number | | Organization | | | | + +---------+ + + | EXTERNAL LAB | | | | + +---------+ + + XR Chest 1 Vw (04/19/2014 5:43 AM PST) + + | Specimen | + + | | + + + + + | Impressions | Performed At | + + + | 1. Stable chest. | | + + + + + + | Narrative | Performed At | + + + | MACKENZIE HARTLEY XR CHEST 1 VIEW 04/19/2014 5:43 AM HISTORY: Line | | | placement. TECHNIQUE: One view of the chest. FINDINGS: | | | Compared with 04/18/14. Due to lines are stable in positions. No | | | pneumothorax. There is persistent severe diffuse bilateral lung | | | disease without significant change. Heart size is normal. Possible | | | small left pleural effusion. | | + + + + + | Procedure Note | + + | Judson, Rad Conversion - 11/24/2018 6:38 AM PDT MACKENZIE GIL CHEST 1 VIEW04/19/2014 5:43 | | AM HISTORY:Line placement. TECHNIQUE:One view of the chest. FINDINGS:Compared with | | 04/18/14. Due to lines are stable in positions. No pneumothorax. There is persistent | | severe diffuse bilateral lung disease without significant change. Heart size is normal. | | Possible small left pleural effusion. IMPRESSION: 1. Stable chest. Electronically | | signed by Bennett Abreu MD on 04/19/2014 7:06 AM | | | |TECHNIQUE: | |One view of the chest. | | | |FINDINGS: | |Compared with 04/18/14. Due to lines are stable in positions. No pneumothorax. There is persi stent severe diffuse bilateral lung disease without significant change. Heart size is normal . Possible small left pleural effusion. | | | |IMPRESSION: | |1. Stable chest. | | | | | + + Protime INR (04/19/2014 2:52 AM PST) + + + + + + | Component | Value | Ref Range | Performed | Pathologist | | | | | At | Signature | + + + + + + | INR | 1.4Comment: REFERENCE | | [...] | | | | | performed at [facility] | | | | | | [facility];[place] | | | | | | [address] | | | | + + + [...] + +---------+ + + External Lab: CBC (04/19/2014 2:52 AM PST) + + +---- + + + | Component | Value | Ref Range | Performed | Pathologist | | | | | At | Signature | + + +---- + + + | WBC | 18.2 (H)Comment: Testing | 3.8 - 11.0 K/uL | EXTERNAL | | | | performed at [facility], [address] | | LAB | | | | [address], | | | | | | [place] [address] | | | | + + +---- + + + | Non- | 3.63 (L)Comment: Testing | 3.7 0 - 5.10 | EXTERNAL | | | Red Blood | performed at [facility], [address] | M/u L | LAB | | | Cells | [address], | | | | | Counted | [place] [address] | | | | + + +---- + + + | Hemoglobin | 9.7 (L)Comment: Testing | 11. 3 - 15.5 | EXTERNAL | | | | performed at [facility], [address] | g/d L | LAB | | | | [address], | | | | | | [place] [address] | | | | + + +---- + + + | Hematocrit, | 30.8 (L)Comment: Testing | 34. 0 - 46.0 % | EXTERNAL | | | POC | performed at [facility], [address] | | LAB | | | | [address], | | | | | | [place] [address] | | | | + + +---- + + + | MCV | 84.8Comment: Testing | 80. 0 - 100.0 fl | EXTERNAL | | | | performed at [facility], [address] | | LAB | | | | [address], | | | | | | [place] [address] | | | | + + +---- + + + | MCH | 26.8 (L)Comment: Testing | 27. 0 - 34.0 pg | EXTERNAL | | | | performed at [facility], [address] | | LAB | | | | [address], | | | | | | [place] [address] | | | | + + +---- + + + | MCHC | 31.6 (L)Comment: Testing | 32. 0 - 35.5 | EXTERNAL | | | | performed at [facility], [address] | [address] | LAB | | | | [address], | | | | | | [place] [address] | | | | + + +---- + + + | RDW-CV | 68.3 (H)Comment: Testing | 37 - 53 fl | EXTERNAL | | | | performed at [facility], [address] | | LAB | | | | [address], | | | | | | [place] [address] | | | | + + +---- + + + | Platelet | 388Comment: Testing | 150 - 400 K/uL | EXTERNAL | | | Count | performed at [facility], [address] | | LAB | | | Plasma | [address], | | | | | | [place] [address] | | | | + + +---- + + + | MPV | 9.6Comment: Testing | fl | EXTERNAL | | | | performed at [facility], [address] | | LAB | | | | [address], | | | | | | [place] [address] | | | | + + +---- + + + | Differentia | MANUALComment: Testing | | EXTERNAL | | | l Type | performed at [facility], [address] | | LAB | | | | [address], | | | | | | [place] [address] | | | | + + +---- + + + | Nucleated | 1 (H)Comment: Testing | /10 0WBC | EXTERNAL | | | Red Blood | performed at [facility], [address] | | LAB | | | Cells | [address], | | | | | | [place] [address] | | | | + + +---- + + + | Segmented | 77Comment: Testing | % | EXTERNAL | | | Neutrophils | performed at [facility], [address] | | LAB | | | Manual | [address], | | | | | | [place] [address] | | | | + + +---- + + + | % Bands | 6Comment: Testing | % | EXTERNAL | | | | performed at [facility], [address] | | LAB | | | | [address], | | | | | | [place] [address] | | | | + + +---- + + + | % | 2Comment: Testing | % | EXTERNAL | | | Metamyelocy | performed at [facility], [address] | | LAB | | | [address] | [address], | | | | | | [place] [address] | | | | + + +---- + + + | Lymphocytes | 12Comment: Testing | % | EXTERNAL | | | Manual | performed at [facility], [address] | | LAB | | | | [address], | | | | | | [place] [address] | | | | + + +---- + + + | Monocytes | 3Comment: Testing | % | EXTERNAL | | | Manual | performed at [facility], [address] | | LAB | | | | [address], | | | | | | [place] [address] | | | | + + +---- + + + | Absolute | 14.0 (H)Comment: Testing | 1.9 - 7.4 K/uL | EXTERNAL | | | Neutrophils | performed at [facility], [address] | | LAB | | | | [address], | | | | | | [place] [address] | | | | + + +---- + + + | Bands | 1.1 (H)Comment: Testing | 0 - 0.2 K/uL | EXTERNAL | | | Manual | performed at [facility], [address] | | LAB | | | | [address], | | | | | | [place] [address] | | | | + + +---- + + + | Absolute | 0.4 (H)Comment: Testing | K/u L | EXTERNAL | | | Metamyelocy | performed at [facility], [address] | | LAB | | | [address] | [address], | | | | | | [place] [address] | | | | + + +---- + + + | Absolute | 2.2Comment: Testing | 1.0 - 3.9 K/uL | EXTERNAL | | | Lymphocytes | performed at [facility], [address] | | LAB | | | | [address], | | | | | | [place] [address] | | | | + + +---- + + + | Absolute | 0.5Comment: Testing | 0 - 0.8 K/uL | EXTERNAL | | | Monocytes | performed at [facility], [address] | | LAB | | | | [address], | | | | | | [place] [address] | | | | + + +---- + + + | RBC | 2+Comment: | | EXTERNAL | | | Morphology | ANISO1+POIK2+HYPO1+MICRO | | LAB | | | | 1+TARGETNORMAL PLT | | | | | | MORPHTesting performed | | | | | | at [facility], [address] | | | | | | [facility], | | | | | | [place] [address] | | | | | |1+ | | | | | |MICRO | | | | | |1+ | | | | | |TARGET | | | | | |NORMAL PLT MORPH | | | | | |Testing performed at [facility], [address] [place] [address] | | | | | | | [...] | | + +---------+ + + Phosphorus (04/19/2014 2:52 AM PST) + + + + + [...] | | | | | [place] [address] | | | | + + + + + + + + | Specimen | + + | Blood specimen | | (specimen) | + + + +---------+ + + | Performing | Address | City/State/Zipcode | Phone Number | | Organization | | | | + +---------+ + + | EXTERNAL LAB | | | | + +---------+ + + Magnesium (04/19/2014 2:52 AM PST) + + + + + + | Component | Value | Ref Range | Performed | Pathologist | | | | | At | Signature | + + + + + + | Magnesium | 1.8Comment: Testing | 1.7 - 2.4 mg/dL | EXTERNAL | | | | performed at [facility], [address] | | LAB | | | | [address], | | | | | | [place] [address] | | | | + + + [...] + +---------+ + + Basic Metabolic Panel (04/19/2014 2:52 AM PST) + + + + + + | Component | Value | Ref Range | Performed | Pathologist | | | | | At | Signature | + + + + + + | Na | 140Comment: Testing | 135 - 143 | EXTERNAL | | | | performed at [facility], [address] | mmol/L | LAB | | | | [address], | | | | | | [place] [address] | | | | + + + + + + | K | 3.1 (L)Comment: Testing | 3.5 - 4.9 | EXTERNAL | | | | performed at [facility], [address] | mmol/L | LAB | | | | [address], | | | | | | [place] [address] | | | | + + + + + + | Cl | 105Comment: Testing | 99 - 109 mmol/L | EXTERNAL | | | | performed at [facility], [address] | | LAB | | | | [address], | | | | | | [place] [address] | | | | + + + + + + | CO2 | 29Comment: Testing | 23 - 32 mmol/L | EXTERNAL | | | | performed at [facility], [address] | | LAB | | | | [address], | | | | | | [place] [address] | | | | + + + + + + | Anion Gap | 9Comment: Testing | 5 - 20 mmol/L | EXTERNAL | | | | performed at [facility], [address] | | LAB | | | | [address], | | | | | | [place] [address] | | | | + + + + + + | Glucose, | 159 (H)Comment: Testing | 65 - 99 mg/dL | EXTERNAL | | | Fasting | performed at [facility], [address] | | LAB | | | | [address], | | | | | | [place] [address] | | | | + + + + + + | BUN | 17Comment: Testing | 8 - 25 mg/dL | EXTERNAL | | | | performed at [facility], [address] | | LAB | | | | [address], | | | | | | [place] [address] | | | | + + + + + + | Creatinine | 0.41 (L)Comment: Testing | 0.50 - 1.00 | EXTERNAL | | | | performed at [facility], [address] | mg/dL | LAB | | | | [address], | | | | | | [place] [address] | | | | + + + + + + | BUN/Creatin | 41Comment: Testing | | EXTERNAL | | | ine Ratio | performed at [facility], [address] | | LAB | | | | [address], | | | | | | [place] [address] | | | | + + + + + + | Calcium | 7.8 (L)Comment: Testing | 8.5 - 10.2 | EXTERNAL | | | | performed at [facility], [address] | mg/dL | LAB | | | | [facility], | | | | | | [place] [address] | | | | + + + [...] W | | | | | | [facility], | | | | | | [place] [address] | | | | + + + + + + + + | Specimen | + + | Blood specimen | | (specimen) | + + + +---------+ + + | Performing | Address | City/State/Zipcode | Phone Number | | Organization | | | | + +---------+ + + | EXTERNAL LAB | | | | + +---------+ + + POC Glucose (04/18/2014 11:22 PM PST) + + + + + + | Component | Value | Ref Range | Performed | Pathologist | | | | | At | Signature | + + + + + + | Glucose, | 155 (H)Comment: Testing | 65 - 99 mg/dL | EXTERNAL | | | Fingerstick | performed at [facility];[address] | | LAB | | | | [address];[place] | | | | | | [address] | | | | + + + + + + + + | Specimen | + + | | + + + +---------+ + + | Performing | Address | City/State/Zipcode | Phone Number | | Organization | | | | + +---------+ + + | EXTERNAL LAB | | | | + +---------+ + + POC Glucose (04/18/2014 6:08 PM PST) + + + + + + | Component | Value | Ref Range | Performed | Pathologist | | | | | At | Signature | + + + + + + | Glucose, | 167 (H)Comment: Testing | 65 - 99 mg/dL | EXTERNAL | | | Fingerstick | performed at [facility];[address] | | LAB | | | | [address];[place], [place] | | | | | | [address] | | | | + + + + + + + + | Specimen | + + | | + + + +---------+ + + | Performing | Address | City/State/Zipcode | Phone Number | | Organization | | | | + +---------+ + + | EXTERNAL LAB | | | | + +---------+ + + Potassium (04/18/2014 1:14 PM PST) + + + + + + | Component | Value | Ref Range | Performed | Pathologist | | | | | At | Signature | + + + + + + | K | 3.9Comment: Testing | 3.5 - 4.9 | EXTERNAL | | | | performed at [facility];[address] | mmol/L | LAB | | | | [address];[place] | | | | | | [address] | | | | + + + + + + + + | Specimen | + + | Blood specimen | | (specimen) | + + + +---------+ + + | Performing | Address | City/State/Zipcode | Phone Number | | Organization | | | | + +---------+ + + | EXTERNAL LAB | | | | + +---------+ + + POC Glucose (04/18/2014 1:13 PM PST) + + + + + + | Component | Value | Ref Range | Performed | Pathologist | | | | | At | Signature | + + + + + + | Glucose, | 200 (H)Comment: Testing | 65 - 99 mg/dL | EXTERNAL | | | Fingerstick | performed at [facility];[address] | | LAB | | | | [address];[place], [place] | | | | | | [address] | | | | + + + + + + + + | Specimen | + + | | + + + +---------+ + + | Performing | Address | City/State/Zipcode | Phone Number | | Organization | | | | + +---------+ + + | EXTERNAL LAB | | | | + +---------+ + + XR Chest 1 Vw (04/18/2014 6:43 AM PST) + + | Specimen | + + | | + + + + + | Impressions | Performed At | + + + | 1. Stable chest. | | + + + + + + | Narrative | Performed At | + + + | [facility] CHEST 1 VIEW 04/18/2014 6:43 AM HISTORY: | | | Respiratory failure. TECHNIQUE: One view chest. FINDINGS: | | | Compared with 04/17/14. Tubes and lines appear unchanged in positions. | | | There persistent severe diffuse bilateral infiltrates, edema, or ARDS | | | with little significant change. A small left pleural effusion cannot | | | be excluded. No pneumothorax. | | + + + + + | Procedure Note | + + | Judson, Rad Conversion - 11/24/2018 6:38 AM PDT [facility] CHEST 1 VIEW04/18/2014 6:43 | | AM HISTORY:Respiratory failure. TECHNIQUE:One view chest. FINDINGS:Compared with | | 04/17/14. Tubes and lines appear unchanged in positions. There persistent severe diffuse | | bilateral infiltrates, edema, or ARDS with little significant change. A small left | | pleural effusion cannot be excluded. No pneumothorax. IMPRESSION: 1. Stable chest. | | | | | |TECHNIQUE: | |One view chest. | | | |FINDINGS: | |Compared with 04/17/14. Tubes and lines appear unchanged in positions. There persistent sever e diffuse bilateral infiltrates, edema, or ARDS with little significant change. A small left pleural effusion cannot be excluded. No pneumothorax. | | | |IMPRESSION: | |1. Stable chest. | | | | | + + POC Glucose (04/18/2014 6:04 AM PST) + + + + + + | Component | Value | Ref Range | Performed | Pathologist | | | | | At | Signature | + + + + + + | Glucose, | 154 (H)Comment: Testing | 65 - 99 mg/dL | EXTERNAL | | | Fingerstick | performed at [facility];[address] | | LAB | | | | [address];[place], [place] | | | | | | [address] | | | | + + + + + + + + | Specimen | + + | | + + + +---------+ + + | Performing | Address | City/State/Zipcode | Phone Number | | Organization | | | | + +---------+ + + | EXTERNAL LAB | | | | + +---------+ + + Ki FLORES (04/18/2014 4:30 AM PST) + + + + + + | Component | Value | Ref Range | Performed | Pathologist | | | | | At | Signature | + + + + + + | INR | 1.4Comment: REFERENCE | | [...] | | | | | performed at [facility] | | | | | | [facility], [place] | | | | | | [address] | | | | + + + [...] + +---------+ + + External Lab: CBC (04/18/2014 4:30 AM PST) + + +---- + + + | Component | Value | Ref Range | Performed | Pathologist | | | | | At | Signature | + + +---- + + + | WBC | 22.9 (H)Comment: Testing | 3.8 - 11.0 K/uL | EXTERNAL | | | | performed at [facility], [address] | | LAB | | | | [address], | | | | | | [place] [address] | | | | + + +---- + + + | Non- | 3.55 (L)Comment: Testing | 3.7 0 - 5.10 | EXTERNAL | | | Red Blood | performed at [facility], [address] | M/u L | LAB | | | Cells | [address], | | | | | Counted | [place] [address] | | | | + + +---- + + + | Hemoglobin | 8.8 (L)Comment: RESULT | 11. 3 - 15.5 | EXTERNAL | | | | VERIFIEDTesting | g/d L | LAB | | | | performed at [facility], [address] | | | | | | [address], | | | | | | [place] [address] | | | | + + +---- + + + | Hematocrit, | 29.5 (L)Comment: RESULT | 34. 0 - 46.0 % | EXTERNAL | | | POC | VERIFIEDTesting | | LAB | | | | performed at [facility], [address] | | | | | | [address], | | | | | | [place] [address] | | | | + + +---- + + + | MCV | 83.2Comment: Testing | 80. 0 - 100.0 fl | EXTERNAL | | | | performed at [facility], [address] | | LAB | | | | [address], | | | | | | [place] [address] | | | | + + +---- + + + | MCH | 24.8 (L)Comment: Testing | 27. 0 - 34.0 pg | EXTERNAL | | | | performed at [facility], [address] | | LAB | | | | [address], | | | | | | [place] [address] | | | | + + +---- + + + | MCHC | 29.8 (L)Comment: Testing | 32. 0 - 35.5 | EXTERNAL | | | | performed at [facility], [address] | g/d L | LAB | | | | [address], | | | | | | [place] [address] | | | | + + +---- + + + | RDW-CV | 64.8 (H)Comment: Testing | 37 - 53 fl | EXTERNAL | | | | performed at [facility], [address] | | LAB | | | | [address], | | | | | | [place] [address] | | | | + + +---- + + + | Platelet | 397Comment: Testing | 150 - 400 K/uL | EXTERNAL | | | Count | performed at [facility], [address] | | LAB | | | Plasma | [address], | | | | | | [place] [address] | | | | + + +---- + + + | MPV | 9.2Comment: Testing | fl | EXTERNAL | | | | performed at [facility], [address] | | LAB | | | [address], | | | | | | [place] [address] | | | | + + +---- + + + | Differentia | MANUALComment: Testing | | EXTERNAL | | | l Type | performed at [facility], [address] | | LAB | | | | [address], | | | | | | [place] [address] | | | | + + +---- + + + | Nucleated | 2 (H)Comment: Testing | /10 0WBC | EXTERNAL | | | Red Blood | performed at [facility], [address] | | LAB | | | Cells | [address], | | | | | | [place] [address] | | | | + + +---- + + + | Segmented | 72Comment: Testing | % | EXTERNAL | | | Neutrophils | performed at [facility], [address] | | LAB | | | Manual | [address], | | | | | | [place] [address] | | | | + + +---- + + + | % | 2Comment: Testing | % | EXTERNAL | | | Metamyelocy | performed at [facility], [address] | | LAB | | | [address] | [address], | | | | | | [place] [address] | | | | + + +---- + + + | Lymphocytes | 15Comment: Testing | % | EXTERNAL | | | Manual | performed at [facility], [address] | | LAB | | | | [address], | | | | | | [place] [address] | | | | + + +---- + + + | Monocytes | 10Comment: Testing | % | EXTERNAL | | | Manual | performed at [facility], [address] | | LAB | | | | [address], | | | | | | [place] [address] | | | | + + +---- + + + | Eosinophils | 1Comment: Testing | % | EXTERNAL | | | Manual | performed at [facility], [address] | | LAB | | | | [address], | | | | | | [place] [address] | | | | + + +---- + + + | Absolute | 16.5 (H)Comment: Testing | 1.9 - 7.4 K/uL | EXTERNAL | | | Neutrophils | performed at [facility], [address] | | LAB | | | | [address], | | | | | | [place] [address] | | | | + + +---- + + + | Absolute | 0.5 (H)Comment: Testing | K/u L | EXTERNAL | | | Metamyelocy | performed at [facility], [address] | | LAB | | | [address] | [address], | | | | | | [place] [address] | | | | + + +---- + + + | Absolute | 3.4Comment: Testing | 1.0 - 3.9 K/uL | EXTERNAL | | | Lymphocytes | performed at [facility], [address] | | LAB | | | | [address], | | | | | | [place] [address] | | | | + + +---- + + + | Absolute | 2.3 (H)Comment: Testing | 0 - 0.8 K/uL | EXTERNAL | | | Monocytes | performed at [facility], [address] | | LAB | | | | [address], | | | | | | [place] [address] | | | | + + +---- + + + | Absolute | 0.2Comment: Testing | 0 - 0.5 K/uL | EXTERNAL | | | Eosinophils | performed at [facility], [address] | | LAB | | | | [address], | | | | | | [place] [address] | | | | + + +---- + + + | RBC | 2+Comment: | | EXTERNAL | | | Morphology | ANISO1+POIK2+HYPO1+TARGE | | LAB | | | | TNORMAL PLT MORPHTesting | | | | | | performed at [facility], [address] | | | | | | [address], | | | | | | [place] [address] | | | | | |HYPO | | | | | |1+ | | | | | |TARGET | | | | | |NORMAL PLT MORPH | | | | | |Testing performed at [facility], [address] [place] [address] | | | | | | | [...] | | + +---------+ + + Phosphorus (04/18/2014 4:30 AM PST) + + + + + + | Component | Value | Ref Range | Performed | Pathologist | | | | | At | Signature | + + + + + + | PHOSPHORUS | 2.5Comment: Testing | 2.3 - 4.8 mg/dL | EXTERNAL | | | | performed at [facility], [address] | | LAB | | | | [address], | | | | | | [place] [address] | | | | + + + + + + + + | Specimen | + + | Blood specimen | | (specimen) | + + + +---------+ + + | Performing | Address | City/State/Zipcode | Phone Number | | Organization | | | | + +---------+ + + | EXTERNAL LAB | | | | + +---------+ + + Magnesium (04/18/2014 4:30 AM PST) + + + + + + | Component | Value | Ref Range | Performed | Pathologist | | | | | At | Signature | + + + + + + | Magnesium | 2.0Comment: Testing | 1.7 - 2.4 mg/dL | EXTERNAL | | | | performed at [facility], [address] | | LAB | | | | [address], | | | | | | [place] [address] | | | | + + + [...] + +---------+ + + Basic Metabolic Panel (04/18/2014 4:30 AM PST) + + + + + + | Component | Value | Ref Range | Performed | Pathologist | | | | | At | Signature | + + + + + + | Na | 147 (H)Comment: Testing | 135 - 143 | EXTERNAL | | | | performed at [facility], [address] | mmol/L | LAB | | | | [address], | | | | | | [place] [address] | | | | + + + + + + | K | 3.2 (L)Comment: Testing | 3.5 - 4.9 | EXTERNAL | | | | performed at [facility], [address] | mmol/L | LAB | | | | [address], | | | | | | [place] [address] | | | | + + + + + + | Cl | 113 (H)Comment: Testing | 99 - 109 mmol/L | EXTERNAL | | | | performed at [facility], [address] | | LAB | | | | [address], | | | | | | [place] [address] | | | | + + + + + + | CO2 | 30Comment: Testing | 23 - 32 mmol/L | EXTERNAL | | | | performed at [facility], [address] | | LAB | | | | [address], | | | | | | [place] [address] | | | | + + + + + + | Anion Gap | 7Comment: Testing | 5 - 20 mmol/L | EXTERNAL | | | | performed at [facility], [address] | | LAB | | | | [address], | | | | | | [place] [address] | | | | + + + + + + | Glucose, | 133 (H)Comment: Testing | 65 - 99 mg/dL | EXTERNAL | | | Fasting | performed at [facility], [address] | | LAB | | | | [address], | | | | | | [place] [address] | | | | + + + + + + | BUN | 22Comment: Testing | 8 - 25 mg/dL | EXTERNAL | | | | performed at [facility], [address] | | LAB | | | | [address], | | | | | | [place] [address] | | | | + + + + + + | Creatinine | 0.68Comment: Testing | 0.50 - 1.00 | EXTERNAL | | | | performed at [facility], [address] | mg/dL | LAB | | | | [address], | | | | | | [place] [address] | | | | + + + + + + | BUN/Creatin | 32Comment: Testing | | EXTERNAL | | | ine Ratio | performed at [facility], [address] | | LAB | | | | [address], | | | | | | [place] [address] | | | | + + + + + + | Calcium | 7.8 (L)Comment: Testing | 8.5 - 10.2 | EXTERNAL | | | | performed at [facility], [address] | mg/dL | LAB | | | | [address], | | | | | | [place] [address] | | | | + + + [...] | | | | | | at [facility], [address] | | | | | | [facility], | | | | | | [place] [address] | | | | + + + + + + + + | Specimen | + + | Blood specimen | | (specimen) | + + + +---------+ + + | Performing | Address | City/State/Zipcode | Phone Number | | Organization | | | | + +---------+ + + | EXTERNAL LAB | | | | + +---------+ + + POC Glucose (04/18/2014 12:05 AM PST) + + + + + + | Component | Value | Ref Range | Performed | Pathologist | | | | | At | Signature | + + + + + + | Glucose, | 169 (H)Comment: Testing | 65 - 99 mg/dL | EXTERNAL | | | Fingerstick | performed at [facility];[address] | | LAB | | | | [address];[place], [place] | | | | | | [address] | | | | + + + + + + + + | Specimen | + + | | + + + +---------+ + + | Performing | Address | City/State/Zipcode | Phone Number | | Organization | | | | + +---------+ + + | EXTERNAL LAB | | | | + +---------+ + + Potassium (04/17/2014 9:33 PM PST) + + + + + + | Component | Value | Ref Range | Performed | Pathologist | | | | | At | Signature | + + + + + + | K | 3.5Comment: Testing | 3.5 - 4.9 | EXTERNAL | | | | performed at [facility];[address] | mmol/L | LAB | | | | [address];[place], [place] | | | | | | [address] | | | | + + + + + + + + | Specimen | + + | Blood specimen | | (specimen) | + + + +---------+ + + | Performing | Address | City/State/Zipcode | Phone Number | | Organization | | | | + +---------+ + + | EXTERNAL LAB | | | | + +---------+ + + Phosphorus (04/17/2014 9:33 PM PST) + + + + + + | Component | Value | Ref Range | Performed | Pathologist | | | | | At | Signature | + + + + + + | PHOSPHORUS | 2.2 (L)Comment: Testing | 2.3 - 4.8 mg/dL | EXTERNAL | | | | performed at [facility];[address] | | LAB | | | | [address];[place] | | | | | | [address] | | | | + + + + + + + + | Specimen | + + | Blood specimen | | (specimen) | + + + +---------+ + + | Performing | Address | City/State/Zipcode | Phone Number | | Organization | | | | + +---------+ + + | EXTERNAL LAB | | | | + +---------+ + + Magnesium (04/17/2014 9:33 PM PST) + + + + + + | Component | Value | Ref Range | Performed | Pathologist | | | | | At | Signature | + + + + + + | Magnesium | 1.7Comment: Testing | 1.7 - 2.4 mg/dL | EXTERNAL | | | | performed at [facility] [place];[address] | | LAB | | | | [address];[place] | | | | | | [id number] | | | | + + + + + + + + | Specimen | + + | Blood specimen | | (specimen) | + + + +---------+ + + | Performing | Address | City/State/Zipcode | Phone Number | | Organization | | | | + +---------+ + + | EXTERNAL LAB | | | | + +---------+ + + POC Glucose (04/17/2014 5:59 PM PST) + + + + + + | Component | Value | Ref Range | Performed | Pathologist | | | | | At | Signature | + + + + + + | Glucose, | 166 (H)Comment: Testing | 65 - 99 mg/dL | EXTERNAL | | | Fingerstick | performed at [facility];[address] | | LAB | | | | [address];[place] | | | | | | [address] | | | | + + + + + + + + | Specimen | + + | | + + + +---------+ + + | Performing | Address | City/State/Zipcode | Phone Number | | Organization | | | | + +---------+ + + | EXTERNAL LAB | | | | + +---------+ + + Potassium (04/17/2014 1:30 PM PST) + + + + + + | Component | Value | Ref Range | Performed | Pathologist | | | | | At | Signature | + + + + + + | K | 3.3 (L)Comment: Testing | 3.5 - 4.9 | EXTERNAL | | | | performed at [facility] [place];[address] | mmol/L | LAB | | | | [address];[place] | | | | | | [id number] | | | | + + + + + + + + | Specimen | + + | Blood specimen | | (specimen) | + + + +---------+ + + | Performing | Address | City/State/Zipcode | Phone Number | | Organization | | | | + +---------+ + + | EXTERNAL LAB | | | | + +---------+ + + Vancomycin, Trough (04/17/2014 1:30 PM PST) + + + + + + | Component | Value | Ref Range | Performed | Pathologist | | | | | At | Signature | + + + + + + | Vancomycin | 17.5Comment: 15 to 20 | 10 - 20 ug/mL | EXTERNAL | | | Trough | ug/mL for meningitis, | | LAB | | | | osteomyelitis, | | | | | | endocarditis, sepsis, or | | | | | | healthcare associated | | | | | | pneumonia, or an ELISA | | | | | | equal to or greater than | | | | | | 1.0 ug/mLTesting | | | | | | performed at [facility] [place];[facility] | | | | | | [facility];[place], [place] | | | | | | [id number] | | | | + + + + + + + + | Specimen | + + | Blood specimen | | (specimen) | + + + +---------+ + + | Performing | Address | City/State/Zipcode | Phone Number | | Organization | | | | + +---------+ + + | EXTERNAL LAB | | | | + +---------+ + + POC Glucose (04/17/2014 12:49 PM PST) + + + + + + | Component | Value | Ref Range | Performed | Pathologist | | | | | At | Signature | + + + + + + | Glucose, | 251 (H)Comment: Testing | 65 - 99 mg/dL | EXTERNAL | | | Fingerstick | performed at [facility];[address] | | LAB | | | | [address];[place], [place] | | | | | | [address] | | | | + + + + + + + + | Specimen | + + | | + + + +---------+ + + | Performing | Address | City/State/Zipcode | Phone Number | | Organization | | | | + +---------+ + + | EXTERNAL LAB | | | | + +---------+ + + XR Chest 1 Vw (04/17/2014 6:25 AM PST) + + | Specimen | + + | | + + + + + | Impressions | Performed At | + + + | 1. Improving severe diffuse lung disease. Stable tubes and lines. | | | | | | AM | | + + + + + + | Narrative | Performed At | + + + | MACKENZIE HARTLEY XR CHEST 1 VIEW 04/17/2014 6:25 AM HISTORY: Line | | | placement. TECHNIQUE: One view of the chest. FINDINGS: | | | Compared with 04/16/14. Tubes and lines in expected positions. No | | | pneumothorax. There are severe diffuse bilateral infiltrates, edema, | | | or ARDS with significant improvement in the upper lung zones. Heart | | | size is normal. | | + + + + + | Procedure Note | + + | Judson, Rad Conversion - 11/24/2018 6:38 AM PDT MACKENZIE GIL CHEST 1 VIEW04/17/2014 6:25 | | AM HISTORY:Line placement. TECHNIQUE:One view of the chest. FINDINGS:Compared with | | 04/16/14. Tubes and lines in expected positions. No pneumothorax. There are severe diffuse | | bilateral infiltrates, edema, or ARDS with significant improvement in the upper lung | | zones. Heart size is normal. IMPRESSION: 1. Improving severe diffuse lung disease. | | Stable tubes and lines. | | 7:19 AM | |TECHNIQUE: | |One view of the chest. | | | |FINDINGS: | |Compared with 04/16/14. Tubes and lines in expected positions. No pneumothorax. There are sev ere diffuse bilateral infiltrates, edema, or ARDS with significant improvement in the upper lung zones. Heart size is normal. | | | |IMPRESSION: | |1. Improving severe diffuse lung disease. Stable tubes and lines. | | | | | + + POC Glucose (04/17/2014 6:13 AM PST) + + + + + + | Component | Value | Ref Range | Performed | Pathologist | | | | | At | Signature | + + + + + + | Glucose, | 200 (H)Comment: Testing | 65 - 99 mg/dL | EXTERNAL | | | Fingerstick | performed at [facility];[address] | | LAB | | | | [address];[place] | | | | | | [address] | | | | + + + + + + + + | Specimen | + + | | + + + +---------+ + + | Performing | Address | City/State/Zipcode | Phone Number | | Organization | | | | + +---------+ + + | EXTERNAL LAB | | | | + +---------+ + + Protime INR (04/17/2014 3:19 AM PST) + + + + + [...] | | | | | performed at [facility];[address] | | | | | | [address];[place] | | | | | | [address] | | | | + + + + + + + + | Specimen | + + | | + + + +---------+ + + | Performing | Address | City/State/Zipcode | Phone Number | | Organization | | | | + +---------+ + + | EXTERNAL LAB | | | | + +---------+ + + External Lab: CBC (04/17/2014 3:19 AM PST) + + + + + + | Component | Value | Ref Range | Performed | Pathologist | | | | | At | Signature | + + + + + + | WBC | 19.2 (H)Comment: Testing | 3.8 - 11.0 K/uL | EXTERNAL | | | | performed at [facility];[address] | | LAB | | | | [address];[place] | | | | | | [address] | | | | + + + + + + | Non- | 3.78Comment: Testing | 3.70 - 5.10 | EXTERNAL | | | Red Blood | performed at [facility];[address] | M/uL | LAB | | | Cells | [address];[place] | | | | | Counted | [phone] | | | | + + + + + + | Hemoglobin | 9.2 (L)Comment: Testing | 11.3 - 15.5 | EXTERNAL | | | | performed at [facility];[address] | g/dL | LAB | | | | [address];[place] | | | | | | [address] | | | | + + + + + + | Hematocrit, | 30.7 (L)Comment: Testing | 34.0 - 46.0 % | EXTERNAL | | | POC | performed at [facility];[address] | | LAB | | | | [address];[place] | | | | | | [address] | | | | + + + + + + | MCV | 81.2Comment: Testing | 80.0 - 100.0 fl | EXTERNAL | | | | performed at [facility];[address] | | LAB | | | | [address];[place] | | | | | | [address] | | | | + + + + + + | MCH | 24.2 (L)Comment: Testing | 27.0 - 34.0 pg | EXTERNAL | | | | performed at [facility];[address] | | LAB | | | | [address];[place] | | | | | | [address] | | | | + + + + + + | MCHC | 29.8 (L)Comment: Testing | 32.0 - 35.5 | EXTERNAL | | | | performed at [facility];[address] | g/dL | LAB | | | | [address];[place] | | | | | | [address] | | | | + + + + + + | RDW-CV | 63.4 (H)Comment: Testing | 37 - 53 fl | EXTERNAL | | | | performed at [facility];[address] | | LAB | | | | [address];[place] | | | | | | [address] | | | | + + + + + + | Platelet | 385Comment: Testing | 150 - 400 K/uL | EXTERNAL | | | Count | performed at [facility];[address] | | LAB | | | Plasma | [address];[place] | | | | | | [address] | | | | + + + + + + | MPV | 9.1Comment: Testing | fl | EXTERNAL | | | | performed at [facility];[address] | | LAB | | | | [address];[place] | | | | | | [address] | | | | + + + + + + | Differentia | MANUALComment: Testing | | EXTERNAL | | | l Type | performed at [facility];[address] | | LAB | | | | [address];[place] | | | | | | [address] | | | | + + + + + + | Segmented | 83Comment: Testing | % | EXTERNAL | | | Neutrophils | performed at [facility];[address] | | LAB | | | Manual | [address];[place] | | | | | | [address] | | | | + + + + + + | % Bands | 2Comment: Testing | % | EXTERNAL | | | | performed at [facility];[address] | | LAB | | | | [address];[place] | | | | | | [address] | | | | + + + + + + | % | 1Comment: Testing | % | EXTERNAL | | | Metamyelocy | performed at [facility];[address] | | LAB | | | petros | [address];[place] | | | | | | [address] | | | | + + + + + + | Lymphocytes | 6Comment: Testing | % | EXTERNAL | | | Manual | performed at [facility];[address] | | LAB | | | | [address];[place] | | | | | | [address] | | | | + + + + + + | Monocytes | 8Comment: Testing | % | EXTERNAL | | | Manual | performed at [facility];[address] | | LAB | | | | [address];[place] | | | | | | [address] | | | | + + + + + + | Absolute | 15.9 (H)Comment: Testing | 1.9 - 7.4 K/uL | EXTERNAL | | | Neutrophils | performed at [facility];[address] | | LAB | | | | [address];[place] | | | | | | [address] | | | | + + + + + + | Bands | 0.4 (H)Comment: Testing | 0 - 0.2 K/uL | EXTERNAL | | | Manual | performed at [facility];[address] | | LAB | | | | [address];[place] | | | | | | [address] | | | | + + + + + + | Absolute | 0.2 (H)Comment: Testing | K/uL | EXTERNAL | | | Metamyelocy | performed at [facility];[address] | | LAB | | | petros | [address];[place] | | | | | | [address] | | | | + + + + + + | Absolute | 1.2Comment: Testing | 1.0 - 3.9 K/uL | EXTERNAL | | | Lymphocytes | performed at [facility];[address] | | LAB | | | | [address];[place] | | | | | | [address] | | | | + + + + + + | Absolute | 1.5 (H)Comment: Testing | 0 - 0.8 K/uL | EXTERNAL | | | Monocytes | performed at [facility];[address] | | LAB | | | | [address];[place] | | | | | | [address] | | | | + + + + + + | Platelet | ADEQUATEComment: Testing | | EXTERNAL | | | Estimate | performed at [facility];[address] | | LAB | | | | [facility];[place] | | | | | | [address] | | | | + + + + + + | RBC | 1+Comment: | | EXTERNAL | | | Morphology | ANISO1+HYPO1+POIK1+TARGE | | LAB | | | | TNORMAL PLT MORPHTesting | | | | | | performed at [facility];[address] | | | | | | [facility];[place] | | | | | | [address] | | | | | |POIK | | | | | |1+ | | | | | |TARGET | | | | | |NORMAL PLT MORPH | | | | | |Testing performed at [facility];[address] [facility];[place] [address] | | | | | | | | | | + + + + + + + + | Specimen | + + | | + + + +---------+ + + | Performing | Address | City/State/Zipcode | Phone Number | | Organization | | | | + +---------+ + + | EXTERNAL LAB | | | | + +---------+ + + Phosphorus (04/17/2014 3:19 AM PST) + + + + + + | Component | Value | Ref Range | Performed | Pathologist | | | | | At | Signature | + + + + + + | PHOSPHORUS | 2.3Comment: Testing | 2.3 - 4.8 mg/dL | EXTERNAL | | | | performed at [facility];[address] | | LAB | | | | [address];[place] | | | | | | [address] | | | | + + + + + + + + | Specimen | + + | | + + + +---------+ + + | Performing | Address | City/State/Zipcode | Phone Number | | Organization | | | | + +---------+ + + | EXTERNAL LAB | | | | + +---------+ + + Magnesium (04/17/2014 3:19 AM PST) + + + + + + | Component | Value | Ref Range | Performed | Pathologist | | | | | At | Signature | + + + + + + | Magnesium | 1.9Comment: Testing | 1.7 - 2.4 mg/dL | EXTERNAL | | | | performed at [facility];[address] | | LAB | | | | [address];[place], [place] | | | | | | [address] | | | | + + + + + + + + | Specimen | + + | | + + + +---------+ + + | Performing | Address | City/State/Zipcode | Phone Number | | Organization | | | | + +---------+ + + | EXTERNAL LAB | | | | + +---------+ + + Basic Metabolic Panel (04/17/2014 3:19 AM PST) + + + + + + | Component | Value | Ref Range | Performed | Pathologist | | | | | At | Signature | + + + + + + | Na | 151 (H)Comment: Testing | 135 - 143 | EXTERNAL | | | | performed at [facility];[address] | mmol/L | LAB | | | | [address];[place] | | | | | | [address] | | | | + + + + + + | K | 3.1 (L)Comment: Testing | 3.5 - 4.9 | EXTERNAL | | | | performed at [facility];[address] | mmol/L | LAB | | | | [address];[place] | | | | | | [address] | | | | + + + + + + | Cl | 114 (H)Comment: Testing | 99 - 109 mmol/L | EXTERNAL | | | | performed at [facility];[address] | | LAB | | | | [address];[place] | | | | | | [address] | | | | + + + + + + | CO2 | 31Comment: Testing | 23 - 32 mmol/L | EXTERNAL | | | | performed at [facility];[address] | | LAB | | | | [address];[place] | | | | | | [address] | | | | + + + + + + | Anion Gap | 9Comment: Testing | 5 - 20 mmol/L | EXTERNAL | | | | performed at [facility];[address] | | LAB | | | | [address];[place] | | | | | | [address] | | | | + + + + + + | Glucose, | 163 (H)Comment: Testing | 65 - 99 mg/dL | EXTERNAL | | | Fasting | performed at [facility];[address] | | LAB | | | | [address];[place] | | | | | | [address] | | | | + + + + + + | BUN | 20Comment: Testing | 8 - 25 mg/dL | EXTERNAL | | | | performed at [facility];[address] | | LAB | | | | [address];[place] | | | | | | [address] | | | | + + + + + + | Creatinine | 0.96Comment: Testing | 0.50 - 1.00 | EXTERNAL | | | | performed at [facility];[address] | mg/dL | LAB | | | | [address];[place] | | | | | | [address] | | | | + + + + + + | BUN/Creatin | 21Comment: Testing | | EXTERNAL | | | ine Ratio | performed at [facility];[address] | | LAB | | | | [address];[place] | | | | | | [address] | | | | + + + + + + | Calcium | 7.5 (L)Comment: Testing | 8.5 - 10.2 | EXTERNAL | | | | performed at [facility];[address] | mg/dL | LAB | | | | [address];[place] | | | | | | [address] | | | | + + + [...] | | | | | | at [facility];[address] | | | | [address];[place] [address] | | | | + + + + + + + + | Specimen | + + | | + + + +---------+ + + | Performing | Address | City/State/Zipcode | Phone Number | | Organization | | | | + +---------+ + + | EXTERNAL LAB | | | | + +---------+ + + POC Glucose (04/16/2014 11:20 PM PST) + + + + + + | Component | Value | Ref Range | Performed | Pathologist | | | | | At | Signature | + + + + + + | Glucose, | 157 (H)Comment: Testing | 65 - 99 mg/dL | EXTERNAL | | | Fingerstick | performed at [facility] | | LAB | | | | [address];[place] | | | | | | [address] | | | | + + + + + + + + | Specimen | + + | | + + + +---------+ + + | Performing | Address | City/State/Zipcode | Phone Number | | Organization | | | | + +---------+ + + | EXTERNAL LAB | | | | + +---------+ + + POC Glucose (04/16/2014 6:33 PM PST) + + + + + + | Component | Value | Ref Range | Performed | Pathologist | | | | | At | Signature | + + + + + + | Glucose, | 157 (H)Comment: Testing | 65 - 99 mg/dL | EXTERNAL | | | Fingerstick | performed at [facility];[address] | | LAB | | | | [address];[place], [place] | | | | | | [address] | | | | + + + + + + + + | Specimen | + + | | + + + +---------+ + + | Performing | Address | City/State/Zipcode | Phone Number | | Organization | | | | + +---------+ + + | EXTERNAL LAB | | | | + +---------+ + + POC Glucose (04/16/2014 1:05 PM PST) + + + + + + | Component | Value | Ref Range | Performed | Pathologist | | | | | At | Signature | + + + + + + | Glucose, | 187 (H)Comment: Testing | 65 - 99 mg/dL | EXTERNAL | | | Fingerstick | performed at [facility];[address] | | LAB | | | | [address];[place] | | | | | | [address] | | | | + + + + + + + + | Specimen | + + | | + + + +---------+ + + | Performing | Address | City/State/Zipcode | Phone Number | | Organization | | | | + +---------+ + + | EXTERNAL LAB | | | | + +---------+ + + Vancomycin, Trough (04/16/2014 12:59 PM PST) + + + + + + | Component | Value | Ref Range | Performed | Pathologist | | | | | At | Signature | + + + + + + | Vancomycin | 19.3Comment: 15 to 20 | 10 - 20 ug/mL | EXTERNAL | | | Trough | ug/mL for meningitis, | | LAB | | | | osteomyelitis, | | | | | | endocarditis, sepsis, or | | | | | | healthcare associated | | | | | | pneumonia, or an ELISA | | | | | | equal to or greater than | | | | | | 1.0 ug/mLTesting | | | | | | performed at [facility];[address] | | | | | | [address];[place], [place] | | | | | | [address] | | | | + + + + + + + + | Specimen | + + | Blood specimen | | (specimen) | + + + +---------+ + + | Performing | Address | City/State/Zipcode | Phone Number | | Organization | | | | + +---------+ + + | EXTERNAL LAB | | | | + +---------+ + + POC Glucose (04/16/2014 8:51 AM PST) + + + + + + | Component | Value | Ref Range | Performed | Pathologist | | | | | At | Signature | + + + + + + | Glucose, | 202 (H)Comment: Testing | 65 - 99 mg/dL | EXTERNAL | | | Fingerstick | performed at [facility];[address] | | LAB | | | | [address];[place], [place] | | | | | | [address] | | | | + + + + + + + + | Specimen | + + | | + + + +---------+ + + | Performing | Address | City/State/Zipcode | Phone Number | | Organization | | | | + +---------+ + + | EXTERNAL LAB | | | | + +---------+ + + XR Abdomen AP (04/16/2014 7:26 AM PST) + + | Specimen | + + | | + + + + + | Impressions | Performed At | + + + | 1. Nasogastric tube tip in the stomach. | | + + + + + + | Narrative | Performed At | + + + | MACKENZIE DIANE ABDOMEN 1 VIEW 04/16/2014 7:26 AM HISTORY: | | | Nasogastric tube placement. TECHNIQUE: One view of the abdomen. | | | FINDINGS: No comparison. The nasogastric tube tip is in the | | | stomach. No significant bowel distention is identified. Surgical clips | | | are noted in the right upper quadrant. | | + + + + + | Procedure Note | + + | Tez Roper - 11/24/2018 6:38 AM AMARI GIL ABDOMEN 1 VIEW04/16/2014 | | 7:26 AM HISTORY:Nasogastric tube placement. TECHNIQUE:One view of the abdomen. | | FINDINGS:No comparison. The nasogastric tube tip is in the stomach. No significant bowel | | distention is identified. Surgical clips are noted in the right upper quadrant. | | IMPRESSION: 1. Nasogastric tube tip in the stomach. | | | |TECHNIQUE: | |One view of the abdomen. | | | |FINDINGS: | |No comparison. The nasogastric tube tip is in the stomach. No significant bowel distention is identified. Surgical clips are noted in the right upper quadrant. | | | |IMPRESSION: | |1. Nasogastric tube tip in the stomach. | | | | | + + XR Chest 1 Vw (04/16/2014 6:18 AM PST) + + | Specimen | + + | | + + + + + | Impressions | Performed At | + + + | 1. Tubes and lines, as above. No evidence of pneumothorax. 2. | | | Persistent severe diffuse lung disease. | | + + + + + + | Narrative | Performed At | + + + | MACKENZIE DIANE CHEST 1 VIEW 04/16/2014 6:18 AM HISTORY: Line | | | placement. TECHNIQUE: One view of the chest. FINDINGS: | | | Compared with 04/15/14. An endotracheal tube has been placed and the tip | | | is 3 cm above the derrell. A right PICC has been placed and the tip is | | | in the SVC. The left subclavian central line is unchanged in | | | position. Heart size is normal. There are persistent severe diffuse | | | bilateral infiltrates, edema, or ARDS with little significant change. | | | No pneumothorax or pleural effusions. | | + + + + + | Procedure Note | + + | Judson, Rad Conversion - 11/24/2018 6:38 AM PDT MACKENZIE GIL CHEST 1 VIEW04/16/2014 6:18 | | AM HISTORY:Line placement. TECHNIQUE:One view of the chest. FINDINGS:Compared with | | 04/15/14. An endotracheal tube has been placed and the tip is 3 cm above the derrell. A | | right PICC has been placed and the tip is in the SVC. The left subclavian central line | | is unchanged in position. Heart size is normal. There are persistent severe diffuse | | bilateral infiltrates, edema, or ARDS with little significant change. No pneumothorax or | | pleural effusions. IMPRESSION: 1. Tubes and lines, as above. No evidence of | | pneumothorax.2. Persistent severe diffuse lung disease. | | | |FINDINGS: | |Compared with 04/15/14. An endotracheal tube has been placed and the tip is 3 cm above the ca jaylin. A right PICC has been placed and the tip is in the SVC. The left subclavian central li ne is unchanged in position. Heart size | |is normal. There are persistent | | severe diffuse bilateral infiltrates, edema, or ARDS with little significant change. No pn eumothorax or pleural effusions. | | | |IMPRESSION: | |1. Tubes and lines, as above. No evidence of pneumothorax. | |2. Persistent severe diffuse lung disease. | | | | | + + Protime INR (04/16/2014 3:15 AM PST) + + + + + + | Component | Value | Ref Range | Performed | Pathologist | | | | | At | Signature | + + + + + + | INR | 1.5Comment: REFERENCE | | EXTERNAL | | | [...] | | | | | performed at [facility];[address] | | | | | | [address];[place], [place] | | | | | | [address] | | | | + + + [...] + +---------+ + + External Lab: RAPHAEL (04/16/2014 3:15 AM PST) + + + + + + | Component | Value | Ref Range | Performed | Pathologist | | | | | At | Signature | + + + + + + | WBC | 20.0 (H)Comment: Testing | 3.8 - 11.0 K/uL | EXTERNAL | | | | performed at [facility];[address] | | LAB | | | | [address];[place] | | | | | | [address] | | | | + + + + + + | Non- | 4.48Comment: Testing | 3.70 - 5.10 | EXTERNAL | | | Red Blood | performed at [facility];[address] | M/uL | LAB | | | Cells | [address];[place] | | | | | Counted | [address] | | | | + + + + + + | Hemoglobin | 10.5 (L)Comment: Testing | 11.3 - 15.5 | EXTERNAL | | | | performed at [facility];[address] | g/dL | LAB | | | | [address];[place] | | | | | | [address] | | | | + + + + + + | Hematocrit, | 36.0Comment: Testing | 34.0 - 46.0 % | EXTERNAL | | | POC | performed at [facility];[address] | | LAB | | | | [address];[place] | | | | | | [address] | | | | + + + + + + | MCV | 80.5Comment: Testing | 80.0 - 100.0 fl | EXTERNAL | | | | performed at [facility];[address] | | LAB | | | | [address];[place] | | | | | | [address] | | | | + + + + + + | MCH | 23.5 (L)Comment: Testing | 27.0 - 34.0 pg | EXTERNAL | | | | performed at [facility];[address] | | LAB | | | | [address];[place] | | | | | | [address] | | | | + + + + + + | MCHC | 29.1 (L)Comment: Testing | 32.0 - 35.5 | EXTERNAL | | | | performed at [facility];[address] | g/dL | LAB | | | | [address];[place] | | | | | | [address] | | | | + + + + + + | RDW-CV | 61.3 (H)Comment: Testing | 37 - 53 fl | EXTERNAL | | | | performed at [facility];[address] | | LAB | | | | [address];[place] | | | | | | [address] | | | | + + + + + + | Platelet | 378Comment: Testing | 150 - 400 K/uL | EXTERNAL | | | Count | performed at [facility];[address] | | LAB | | | Plasma | [address];[place] | | | | | | [address] | | | | + + + + + + | MPV | 9.5Comment: Testing | fl | EXTERNAL | | | | performed at [facility];[address] | | LAB | | | | [address];[place] | | | | | | [address] | | | | + + + + + + | Differentia | MANUALComment: Testing | | EXTERNAL | | | l Type | performed at [facility];[address] | | LAB | | | | [address];[place] | | | | | | [address] | | | | + + + + + + | Nucleated | 2 (H)Comment: Testing | /100WBC | EXTERNAL | | | Red Blood | performed at [facility];[address] | | LAB | | | Cells | [address];[place] | | | | | | [address] | | | | + + + + + + | Segmented | 88Comment: Testing | % | EXTERNAL | | | Neutrophils | performed at [facility];[address] | | LAB | | | Manual | [address];[place] | | | | | | [address] | | | | + + + + + + | % | 1Comment: Testing | % | EXTERNAL | | | Myelocytes | performed at [facility];[address] | | LAB | | | | [address];[place] | | | | | | [address] | | | | + + + + + + | Lymphocytes | 6Comment: Testing | % | EXTERNAL | | | Manual | performed at [facility];[address] | | LAB | | | | [address];[place] | | | | | | [address] | | | | + + + + + + | Monocytes | 5Comment: Testing | % | EXTERNAL | | | Manual | performed at [facility];[address] | | LAB | | | | [address];[place] | | | | | | [address] | | | | + + + + + + | Absolute | 17.6 (H)Comment: Testing | 1.9 - 7.4 K/uL | EXTERNAL | | | Neutrophils | performed at [facility] [place];[address] | | LAB | | | | [address];[place] | | | | | | [address] | | | | + + + + + + | Absolute | 0.2 (H)Comment: Testing | K/uL | EXTERNAL | | | Myelocytes | performed at [facility] [place];[address] | | LAB | | | | [address];[place] | | | | | | [address] | | | | + + + + + + | Absolute | 1.2Comment: Testing | 1.0 - 3.9 K/uL | EXTERNAL | | | Lymphocytes | performed at [facility] [place];[address] | | LAB | | | | [address];[place] | | | | | | [address] | | | | + + + + + + | Absolute | 1.0 (H)Comment: Testing | 0 - 0.8 K/uL | EXTERNAL | | | Monocytes | performed at [facility] [place];[address] | | LAB | | | | [address];[place] | | | | | | [address] | | | | + + + + + + | RBC | 1+Comment: | | EXTERNAL | | | Morphology | HYPO2+ANISO1+TARGET1+POI | | LAB | | | | K1+GIANT | | | | | | PLATELETSTesting | | | | | | performed at [facility] [place];[address] | | | | | | [address];[place] | | | | | | [address] | | | | | |1+ | | | | | |POIK | | | | | |1+ | | | | | |GIANT PLATELETS | | | | | |Testing performed at [facility] [place];[address];[place] [address] | | | | | | | [...] | | + +---------+ + + Phosphorus (04/16/2014 3:15 AM PST) + + + + + + | Component | Value | Ref Range | Performed | Pathologist | | | | | At | Signature | + + + + + + | PHOSPHORUS | 4.0Comment: Testing | 2.3 - 4.8 mg/dL | EXTERNAL | | | | performed at [facility], [address] | | LAB | | | | [address], | | | | | | [place] [address] | | | | + + + + + + + + | Specimen | + + | | + + + +---------+ + + | Performing | Address | City/State/Zipcode | Phone Number | | Organization | | | | + +---------+ + + | EXTERNAL LAB | | | | + +---------+ + + B Type Natriuretic Peptide (04/16/2014 3:15 AM PST) + + + + + + | Component | Value | Ref Range | Performed | Pathologist | | | | | At | Signature | + + + + + + | BNP | 4,710 (H)Comment: | 0 - 100 pg/mL | EXTERNAL | | | | Testing performed at | | LAB | | | | [facility];[address];[place] [address] | | | | + + + + + + + + | Specimen | + + | Blood specimen | | (specimen) | + + + +---------+ + + | Performing | Address | City/State/Zipcode | Phone Number | | Organization | | | | + +---------+ + + | EXTERNAL LAB | | | | + +---------+ + + Magnesium (04/16/2014 3:15 AM PST) + + + + + + | Component | Value | Ref Range | Performed | Pathologist | | | | | At | Signature | + + + + + + | Magnesium | 1.9Comment: Testing | 1.7 - 2.4 mg/dL | EXTERNAL | | | | performed at [facility], [address] | | LAB | | | | [address], | | | | | | [place] [address] | | | | + + + + + + + + | Specimen | + + | | + + + +---------+ + + | Performing | Address | City/State/Zipcode | Phone Number | | Organization | | | | + +---------+ + + | EXTERNAL LAB | | | | + +---------+ + + Basic Metabolic Panel (04/16/2014 3:15 AM PST) + + + + + + | Component | Value | Ref Range | Performed | Pathologist | | | | | At | Signature | + + + + + + | Na | 146 (H)Comment: Testing | 135 - 143 | EXTERNAL | | | | performed at [facility], [address] | mmol/L | LAB | | | | [address], | | | | | | [place] [address] | | | | + + + + + + | K | 4.4Comment: Testing | 3.5 - 4.9 | EXTERNAL | | | | performed at [facility], [address] | mmol/L | LAB | | | | [address], | | | | | | [place] [address] | | | | + + + + + + | Cl | 106Comment: Testing | 99 - 109 mmol/L | EXTERNAL | | | | performed at [facility], [address] | | LAB | | | | [address], | | | | | | [place] [address] | | | | + + + + + + | CO2 | 32Comment: Testing | 23 - 32 mmol/L | EXTERNAL | | | | performed at [facility], [address] | | LAB | | | | [address], | | | | | | [place] [address] | | | | + + + + + + | Anion Gap | 12Comment: Testing | 5 - 20 mmol/L | EXTERNAL | | | | performed at [facility], [address] | | LAB | | | | [address], | | | | | | [place] [address] | | | | + + + + + + | Glucose, | 212 (H)Comment: Testing | 65 - 99 mg/dL | EXTERNAL | | | Fasting | performed at [facility], [address] | | LAB | | | | [address], | | | | | | [place] [address] | | | | + + + + + + | BUN | 20Comment: Testing | 8 - 25 mg/dL | EXTERNAL | | | | performed at [facility], [address] | | LAB | | | | [address], | | | | | | [place] [address] | | | | + + + + + + | Creatinine | 0.86Comment: Testing | 0.50 - 1.00 | EXTERNAL | | | | performed at [facility], [address] | mg/dL | LAB | | | | [address], | | | | | | [place] [address] | | | | + + + + + + | BUN/Creatin | 23Comment: Testing | | EXTERNAL | | | ine Ratio | performed at [facility], [address] | | LAB | | | | [address], | | | | | | [place] [address] | | | | + + + + + + | Calcium | 8.2 (L)Comment: Testing | 8.5 - 10.2 | EXTERNAL | | | | performed at [facility], [address] | mg/dL | LAB | | | | [address], | | | | | | [place] [address] | | | | + + + [...] | | | | | | [address], | | | | | | [place] [address] | | | | + + + + + + + + | Specimen | + + | Blood specimen | | (specimen) | + + + +---------+ + + | Performing | Address | City/State/Zipcode | Phone Number | | Organization | | | | + +---------+ + + | EXTERNAL LAB | | | | + +---------+ + + Potassium (04/15/2014 11:41 PM PST) + + + + + + | Component | Value | Ref Range | Performed | Pathologist | | | | | At | Signature | + + + + + + | K | 4.2Comment: Testing | 3.5 - 4.9 | EXTERNAL | | | | performed at [facility];[address] | mmol/L | LAB | | | | [address];[place], [place] | | | | | | [address] | | | | + + + + + + + + | Specimen | + + | Blood specimen | | (specimen) | + + + +---------+ + + | Performing | Address | City/State/Zipcode | Phone Number | | Organization | | | | + +---------+ + + | EXTERNAL LAB | | | | + +---------+ + + Potassium (04/15/2014 8:15 PM PST) + + + + + + | Component | Value | Ref Range | Performed | Pathologist | | | | | At | Signature | + + + + + + | K | 3.5Comment: SLT | 3.5 - 4.9 | EXTERNAL | | | | HEMOLYSISTesting | mmol/L | LAB | | | | performed at [facility];[address] | | | | | | [address];[place], [place] | | | | | | [address] | | | | + + + + + + + + | Specimen | + + | Blood specimen | | (specimen) | + + + +---------+ + + | Performing | Address | City/State/Zipcode | Phone Number | | Organization | | | | + +---------+ + + | EXTERNAL LAB | | | | + +---------+ + + Potassium (04/15/2014 2:26 PM PST) + + + + + + | Component | Value | Ref Range | Performed | Pathologist | | | | | At | Signature | + + + + + + | K | 3.5Comment: Testing | 3.5 - 4.9 | EXTERNAL | | | | performed at [facility];[address] | mmol/L | LAB | | | | [address];[place], [place] | | | | | | [address] | | | | + + + + + + + + | Specimen | + + | Blood specimen | | (specimen) | + + + +---------+ + + | Performing | Address | City/State/Zipcode | Phone Number | | Organization | | | | + +---------+ + + | EXTERNAL LAB | | | | + +---------+ + + Ammonia (04/15/2014 2:25 PM PST) + + + + + + | Component | Value | Ref Range | Performed | Pathologist | | | | | At | Signature | + + + + + + | Ammonia | 33 (H)Comment: Testing | umol/L | EXTERNAL | | | | performed at [facility];[address] | | LAB | | | | [address];[place], [place] | | | | | | [address] | | | | + + + + + + + + | Specimen | + + | Blood specimen | | (specimen) | + + + +---------+ + + | Performing | Address | City/State/Zipcode | Phone Number | | Organization | | | | + +---------+ + + | EXTERNAL LAB | | | | + +---------+ + + XR Chest 1 Vw (04/15/2014 6:18 AM PST) + + | Specimen | + + | | + + + + + | Impressions | Performed At | + + + | 1. Improving severe diffuse lung disease. Unchanged central line. | | | | | | AM | | + + + + + + | Narrative | Performed At | + + + | [facility] XR CHEST 1 VIEW 04/15/2014 6:18 AM HISTORY: Tube | | | placement. TECHNIQUE: One view chest. FINDINGS: Compared | | | with 04/14/14. The central line is unchanged in position. There are | | | persistent severe diffuse bilateral infiltrates, edema, or ARDS with | | | some improvement in the mid and lower lung zones. Heart size is | | | normal. No evidence of a pneumothorax. | | + + + + + | Procedure Note | + + | Judson, Rad Conversion - 11/24/2018 6:38 AM PDT MACKEN[facility]IE HARTLEYXR CHEST 1 VIEW04/15/2014 6:18 | | AM HISTORY:Tube placement. TECHNIQUE:One view chest. FINDINGS:Compared with 04/14/14. The | | central line is unchanged in position. There are persistent severe diffuse bilateral | | infiltrates, edema, or ARDS with some improvement in the mid and lower lung zones. Heart | | size is normal. No evidence of a pneumothorax. IMPRESSION: 1. Improving severe diffuse | | lung disease. Unchanged central line. | |TECHNIQUE: | |One view chest. | | | |FINDINGS: | |Compared with 04/14/14. The central line is unchanged in position. There are persistent sever e diffuse bilateral infiltrates, edema, or ARDS with some improvement in the mid and lower l tobias zones. Heart size is normal. No evidence of a pneumothorax. | | | |IMPRESSION: | |1. Improving severe diffuse lung disease. Unchanged central line. | | | | | + + ECG 12 lead (04/15/2014 5:06 AM PST) + + + + + + | Component | Value | Ref Range | Performed | Pathologist | | | | | At | Signature | + + + + + + | DIAGNOSIS: | Sinus tachycardiaLow | | EXTERNAL | | | | voltage QRSPossible | | LAB | | | | Septal infarct , age | | | | | | undeterminedT wave | | | | | | abnormality, consider | | | | | | anterolateral | | | | | | ischemiaProlonged Q-T | | | | | | intervalPossible Left | | | | | | atrial | | | | | | abnormalityAbnormal | | | | | | ECGNo previous ECGs | | | | | | availableConfirmed by | | | | | | Sandoval Ko ([id number]) on | | | | | | 04/15/2014 8:40:59 PM | | | | + + + + + + + + | Specimen | + + | | + + + + + | Narrative | Performed At | + + + | Historically converted procedure from [facility] environment | EXTERNAL LAB | + + + + +---------+ + + | Performing | Address | City/State/Zipcode | Phone Number | | Organization | | | | + +---------+ + + | EXTERNAL LAB | | | | + +---------+ + + Lactic Acid (04/15/2014 4:34 AM PST) + + + + + + | Component | Value | Ref Range | Performed | Pathologist | | | | | At | Signature | + + + + + + | Lactate | 2.3 (H)Comment: Testing | 0.4 - 2.0 | EXTERNAL | | | | performed at [facility];[address] | mmol/L | LAB | | | | [address];[place] | | | | | | [address] | | | | + + + + + + + + | Specimen | + + | Blood specimen | | (specimen) | + + + +---------+ + + | Performing | Address | City/State/Zipcode | Phone Number | | Organization | | | | + +---------+ + + | EXTERNAL LAB | | | | + +---------+ + + CK-MB (04/15/2014 4:22 AM PST) + + + + + -+ | Component | Value | Ref Range | Performed | Pathologist | | | | | At | Signature | + + + + + -+ | CK-MB | 1.5Comment: Testing | 0.5 - 3.6 ng/mL | EXTERNAL | | | | performed at [facility];[address] | | LAB | | | | [facility];[place], [place] | | | | | | [address] | | | | + + + + + -+ | CK-MB Index | 2.0Comment: CK INDEX | | EXTERNAL | | [...] | + +---------+ + + Troponin I (04/15/2014 4:22 AM PST) + + + + + + | Component | Value | Ref Range | Performed | Pathologist | | | | | At | Signature | + + + + + + | Troponin I, | 0.267 (H)Comment: 0.00 | 0.00 - 0.10 | EXTERNAL | | | Qual | to 0.10 CONSISTENT | ng/mL | LAB | | | | WITH NORMAL | | | | | | POPULATION0.11 to 0.60 | | | | | | CONSISTENT WITH | | | | | | INCREASED RISK FOR | | | | | | ADVERSE OUTCOMES> 0.60 | | | | | | CONSISTENT | | | | | | WITH WHO CRITERIA FOR | | | | | | ACUTE [place] Testing | | | | | | performed at [facility];[address] | | | | | | [address];[place], [place] | | | | | | [address] | | | | + + + + + + + + | Specimen | + + | Blood specimen | | (specimen) | + + + +---------+ + + | Performing | Address | City/State/Zipcode | Phone Number | | Organization | | | | + +---------+ + + | EXTERNAL LAB | | | | + +---------+ + + Ki FLORES (04/15/2014 4:22 AM PST) + + + + + [...] | | | | | performed at [facility] | | | | | | [facility];[place], [place] | | | | | | [address] | | | | + + + [...] + +---------+ + + External Lab: CBC (04/15/2014 4:22 AM PST) + + + + + + | Component | Value | Ref Range | Performed | Pathologist | | | | | At | Signature | + + + + + + | WBC | 22.8 (H)Comment: Testing | 3.8 - 11.0 K/uL | EXTERNAL | | | | performed at [facility];[address] | | LAB | | | | [address];[place] | | | | | | [address] | | | | + + + + + + | Non- | 4.49Comment: Testing | 3.70 - 5.10 | EXTERNAL | | | Red Blood | performed at [facility];[address] | M/uL | LAB | | | Cells | [address];[place] | | | | | Counted | [address] | | | | + + + + + + | Hemoglobin | 10.6 (L)Comment: Testing | 11.3 - 15.5 | EXTERNAL | | | | performed at [facility];[address] | g/dL | LAB | | | | [address];[place] | | | | | | [address] | | | | + + + + + + | Hematocrit, | 36.1Comment: Testing | 34.0 - 46.0 % | EXTERNAL | | | POC | performed at [facility];[address] | | LAB | | | [address];[place] | | | | | | [address] | | | | + + + + + + | MCV | 80.2Comment: Testing | 80.0 - 100.0 fl | EXTERNAL | | | | performed at [facility];[address] | | LAB | | | | [address];[place] | | | | | | [address] | | | | + + + + + + | MCH | 23.5 (L)Comment: Testing | 27.0 - 34.0 pg | EXTERNAL | | | | performed at [facility];[address] | | LAB | | | | [address];[place] | | | | | | [address] | | | | + + + + + + | MCHC | 29.3 (L)Comment: Testing | 32.0 - 35.5 | EXTERNAL | | | | performed at [facility];[address] | g/dL | LAB | | | | [address];[place] | | | | | | [address] | | | | + + + + + + | RDW-CV | 60.8 (H)Comment: Testing | 37 - 53 fl | EXTERNAL | | | | performed at [facility];[address] | | LAB | | | [address];[place] | | | | | | [address] | | | | + + + + + + | Platelet | 382Comment: Testing | 150 - 400 K/uL | EXTERNAL | | | Count | performed at [facility];[address] | | LAB | | | Plasma | [address];[place] | | | | | | [address] | | | | + + + + + + | MPV | 9.1Comment: Testing | fl | EXTERNAL | | | | performed at [facility];[address] | | LAB | | | | [address];[place] | | | | | | [address] | | | | + + + + + + | Differentia | MANUALComment: Testing | | EXTERNAL | | | l Type | performed at [facility];[address] | | LAB | | | | [address];[place] | | | | | | [address] | | | | + + + + + + | Nucleated | 2 (H)Comment: Testing | /100WBC | EXTERNAL | | | Red Blood | performed at [facility];[address] | | LAB | | | Cells | [address];[place] | | | | | | [address] | | | | + + + + + + | Segmented | 90Comment: Testing | % | EXTERNAL | | | Neutrophils | performed at [facility];[address] | | LAB | | | Manual | [address];[place] | | | | | | [address] | | | | + + + + + + | % Bands | 2Comment: Testing | % | EXTERNAL | | | | performed at [facility];[address] | | LAB | | | | [address];[place] | | | | | | [address] | | | | + + + + + + | Lymphocytes | 8Comment: Testing | % | EXTERNAL | | | Manual | performed at [facility];[address] | | LAB | | | | [address];[place] | | | | | | [address] | | | | + + + + + + | Absolute | 20.5 (H)Comment: Testing | 1.9 - 7.4 K/uL | EXTERNAL | | | Neutrophils | performed at [facility];[address] | | LAB | | | | [address];[place] | | | | | | [address] | | | | + + + + + + | Bands | 0.5 (H)Comment: Testing | 0 - 0.2 K/uL | EXTERNAL | | | Manual | performed at [facility];[address] | | LAB | | | | [address];[place] | | | | | | [address] | | | | + + + + + + | Absolute | 1.8Comment: Testing | 1.0 - 3.9 K/uL | EXTERNAL | | | Lymphocytes | performed at [facility];[address] | | LAB | | | | [address];[place] | | | | | | [address] | | | | + + + + + + | Platelet | ADEQUATEComment: Testing | | EXTERNAL | | | Estimate | performed at [facility];[address] | | LAB | | | | [facility] | | | | | | [address] | | | | + + + + + + | RBC | 2+Comment: | | EXTERNAL | | | Morphology | ANISO1+HYPO1+ELLIPTO1+PO | | LAB | | | | IK2+TARGETNORMAL PLT | | | | | | MORPHTesting performed | | | | | | at [facility];[address];[place] [address] | | | | | |ELLIPTO | | | | | |1+ | | | | | |POIK | | | | | |2+ | | | | | |TARGET | | | | | |NORMAL PLT MORPH | | | | | |Testing performed at [facility];[address] [facility];[place] [address] | | | | | | | [...] | | + +---------+ + + Phosphorus (04/15/2014 4:22 AM PST) + + + + + + | Component | Value | Ref Range | Performed | Pathologist | | | | | At | Signature | + + + + + + | PHOSPHORUS | 3.3Comment: Testing | 2.3 - 4.8 mg/dL | EXTERNAL | | | | performed at [facility];[address] | | LAB | | | | [address];[place] | | | | | | [address] | | | | + + + + + + + + | Specimen | + + | Blood specimen | | (specimen) | + + + +---------+ + + | Performing | Address | City/State/Zipcode | Phone Number | | Organization | | | | + +---------+ + + | EXTERNAL LAB | | | | + +---------+ + + B Type Natriuretic Peptide (04/15/2014 4:22 AM PST) + + + + + + | Component | Value | Ref Range | Performed | Pathologist | | | | | At | Signature | + + + + + + | BNP | >5000 (H)Comment: | 0 - 100 pg/mL | EXTERNAL | | | | Testing performed at | | LAB | | | | [facility];[address] [place] [address] | | | | | | [facility];[place] [address] | | | | + + + + + + + + | Specimen | + + | Blood specimen | | (specimen) | + + + +---------+ + + | Performing | Address | City/State/Zipcode | Phone Number | | Organization | | | | + +---------+ + + | EXTERNAL LAB | | | | + +---------+ + + Magnesium (04/15/2014 4:22 AM PST) + + + + + + | Component | Value | Ref Range | Performed | Pathologist | | | | | At | Signature | + + + + + + | Magnesium | 2.3Comment: Testing | 1.7 - 2.4 mg/dL | EXTERNAL | | | | performed at [facility];[address] | | LAB | | | | [address];[place] | | | | | | [address] | | | | + + + + + + + + | Specimen | + + | Blood specimen | | (specimen) | + + + +---------+ + + | Performing | Address | City/State/Zipcode | Phone Number | | Organization | | | | + +---------+ + + | EXTERNAL LAB | | | | + +---------+ + + CK Total (04/15/2014 4:22 AM PST) + + + + + + | Component | Value | Ref Range | Performed | Pathologist | | | | | At | Signature | + + + + + + | CK, Total | 74Comment: Testing | 30 - 240 U/L | EXTERNAL | | | | performed at [facility];[address] | | LAB | | | | [address];[place], [place] | | | | | | [address] | | | | + + + + + + + + | Specimen | + + | Blood specimen | | (specimen) | + + + +---------+ + + | Performing | Address | City/State/Zipcode | Phone Number | | Organization | | | | + +---------+ + + | EXTERNAL LAB | | | | + +---------+ + + Vancomycin, Trough (04/15/2014 4:22 AM PST) + + + + + + | Component | Value | Ref Range | Performed | Pathologist | | | | | At | Signature | + + + + + + | Vancomycin | 24.8 ()Comment: 15 to | 10 - 20 ug/mL | EXTERNAL | | | Trough | 20 ug/mL for meningitis, | | LAB | | | | osteomyelitis, | | | | | | endocarditis, sepsis, or | | | | | | healthcare associated | | | | | | pneumonia, or an ELISA | | | | | | equal to or greater than | | | | | | 1.0 ug/mLCALLED TO ANA | | | | | | B. RN/ICU AT 0506 BY | | | | | | MWREAD BACK RESULTS | | | | | | VERIFIEDTesting | | | | | | performed at [facility];[address] | | | | | | [facility];[place], [place] | | | | | | [address] | | | | + + + [...] + +---------+ + + Basic Metabolic Panel (04/15/2014 4:22 AM PST) + + + + + + | Component | Value | Ref Range | Performed | Pathologist | | | | | At | Signature | + + + + + + | Na | 148 (H)Comment: Testing | 135 - 143 | EXTERNAL | | | | performed at [facility];[address] | mmol/L | LAB | | | | [address];[place] | | | | | | [address] | | | | + + + + + + | K | 3.7Comment: Testing | 3.5 - 4.9 | EXTERNAL | | | | performed at [facility];[address] | mmol/L | LAB | | | | [address];[place] | | | | | | [address] | | | | + + + + + + | Cl | 109Comment: Testing | 99 - 109 mmol/L | EXTERNAL | | | | performed at [facility];[address] | | LAB | | | | [address];[place] | | | | | | [address] | | | | + + + + + + | CO2 | 28Comment: Testing | 23 - 32 mmol/L | EXTERNAL | | | | performed at [facility];[address] | | LAB | | | | [address];[place] | | | | | | [address] | | | | + + + + + + | Anion Gap | 14Comment: Testing | 5 - 20 mmol/L | EXTERNAL | | | | performed at [facility];[address] | | LAB | | | | [address];[place] | | | | | | [address] | | | | + + + + + + | Glucose, | 99Comment: Testing | 65 - 99 mg/dL | EXTERNAL | | | Fasting | performed at [facility];[address] | | LAB | | | | [address];[place] | | | | | | [address] | | | | + + + + + + | BUN | 22Comment: Testing | 8 - 25 mg/dL | EXTERNAL | | | | performed at [facility];[address] | | LAB | | | | [address];[place] | | | | | | [address] | | | | + + + + + + | Creatinine | 0.98Comment: Testing | 0.50 - 1.00 | EXTERNAL | | | | performed at [facility];[address] | mg/dL | LAB | | | | [address];[place] | | | | | | [address] | | | | + + + + + + | BUN/Creatin | 23Comment: Testing | | EXTERNAL | | | ine Ratio | performed at [facility];[address] | | LAB | | | | [address];[place] | | | | | | [address] | | | | + + + + + + | Calcium | 8.4 (L)Comment: Testing | 8.5 - 10.2 | EXTERNAL | | | | performed at [facility];[address] | mg/dL | LAB | | | | [address];[place] | | | | | | [address] | | | | + + + [...] | | | | | | at [facility];[address];[place] [address] | | | | + + + + + + + + | Specimen | + + | Blood specimen | | (specimen) | + + + +---------+ + + | Performing | Address | City/State/Zipcode | Phone Number | | Organization | | | | + +---------+ + + | EXTERNAL LAB | | | | + +---------+ + + Vancomycin, Trough (04/14/2014 6:06 PM PST) + + + + + + | Component | Value | Ref Range | Performed | Pathologist | | | | | At | Signature | + + + + + + | Vancomycin | 33.0 ()Comment: 15 to | 10 - 20 ug/mL | EXTERNAL | | | Trough | 20 ug/mL for meningitis, | | LAB | | | | osteomyelitis, | | | | | | endocarditis, sepsis, or | | | | | | healthcare associated | | | | | | pneumonia, or an ELISA | | | | | | equal to or greater than | | | | | | 1.0 ug/mLRESULT READ | | | | | | BACK BY:ABHI Benton/ICU | | | | | | [place] [id number] AT 1844, | | | | | | VAPTesting performed at | | | | | | [facility];[address];[place] [address] | | | | + + + + + + + + | Specimen | + + | Blood specimen | | (specimen) | + + + +---------+ + + | Performing | Address | City/State/Zipcode | Phone Number | | Organization | | | | + +---------+ + + | EXTERNAL LAB | | | | + +---------+ + + Potassium (04/14/2014 6:05 PM PST) + + + + + + | Component | Value | Ref Range | Performed | Pathologist | | | | | At | Signature | + + + + + + | K | 3.2 (L)Comment: Testing | 3.5 - 4.9 | EXTERNAL | | | | performed at [facility];[address] | mmol/L | LAB | | | | [address];[place] | | | | | | [address] | | | | + + + + + + + + | Specimen | + + | Blood specimen | | (specimen) | + + + +---------+ + + | Performing | Address | City/State/Zipcode | Phone Number | | Organization | | | | + +---------+ + + | EXTERNAL LAB | | | | + +---------+ + + Phosphorus (04/14/2014 6:05 PM PST) + + + + + + | Component | Value | Ref Range | Performed | Pathologist | | | | | At | Signature | + + + + + + | PHOSPHORUS | 3.2Comment: Testing | 2.3 - 4.8 mg/dL | EXTERNAL | | | | performed at [facility] [place];[address] | | LAB | | | | [address];[place], [place] | | | | | | [address] | | | | + + + + + + + + | Specimen | + + | Blood specimen | | (specimen) | + + + +---------+ + + | Performing | Address | City/State/Zipcode | Phone Number | | Organization | | | | + +---------+ + + | EXTERNAL LAB | | | | + +---------+ + + Magnesium (04/14/2014 6:05 PM PST) + + + + + + | Component | Value | Ref Range | Performed | Pathologist | | | | | At | Signature | + + + + + + | Magnesium | 2.0Comment: Testing | 1.7 - 2.4 mg/dL | EXTERNAL | | | | performed at [facility] [place];[facility] | | LAB | | | | [address];[place], [place] | | | | | | [address] | | | | + + + [...] + +---------+ + + HISTORICAL MICROBIOLOGY RESULT (04/14/2014 7:04 AM PST) + + | Specimen | + + | Stool specimen | | (specimen) | + + + + + | Narrative | Performed At | + + + | Toxigenic C Difficile NEGATIVE Testing | EXTERNAL LAB | | performed at [facility];[address] [place] [address];[place] [address] 027 NAP1 BI | | | 027 NAP1 BI PRESUMPTIVE NEGATIVE | | | Detection of 027 NAP1 BI strains of C. difficile is presumptive and | | | for epidemiological purposes and not intended to guide or monitor | | | treatment for C. difficile infections. Testing performed at [facility] [place];[address] | | | [facility];[place] [address] | | + + + + +---------+ + + | Performing | Address | City/State/Zipcode | Phone Number | | Organization | | | | + +---------+ + + | EXTERNAL LAB | | | | + +---------+ + + XR Chest 1 Vw (04/14/2014 6:16 AM PST) + + | Specimen | + + | | + + + + + | Impressions | Performed At | + + + | 1. Interval removal of the endotracheal tube and nasogastric tube. | | | 2. Persistent bilateral diffuse interstitial and airspace | | | opacities Electronically signed by David Medel MD on | | | 04/14/2014 8:11 AM | | + + + + + + | Narrative | Performed At | + + + | [facility] HART[facility] XR CHEST 1 VIEW 04/14/2014 6:16 AM HISTORY: 58 | | | years. Female. Critical care unit patient pneumonia and | | | respiratory failure TECHNIQUE: XR CHEST 1 VIEW. AP portable view | | | of the chest dual-energy technique 0531 hours. Total of 3 images | | | obtained. COMPARISON: 04/13/2014 FINDINGS: There's been | | | interval extubation and removal of the nasogastric tube. There | | | continues to be bilateral interstitial and airspace opacities. Left | | | basilar atelectasis and probable minimal effusion. | | + + + + + | Procedure Note | + + | Judson, Rad Conversion - 11/24/2018 6:38 AM PDT [facility]ACKEN[facility] GIL CHEST 1 VIEW04/14/2014 6:16 | | AM HISTORY:58 years. Female. Critical care unit patient pneumonia and respiratory | | failure TECHNIQUE:XR CHEST 1 VIEW. AP portable view of the chest dual-energy technique | | 0531 hours. Total of 3 images obtained. COMPARISON:04/13/2014 FINDINGS:There's been | | interval extubation and removal of the nasogastric tube. There continues to be bilateral | | interstitial and airspace opacities. Left basilar atelectasis and probable minimal | | effusion. IMPRESSION: 1. Interval removal of the endotracheal tube and nasogastric | | tube.2. Persistent bilateral diffuse interstitial and airspace opacities | | | | | |COMPARISON: | |04/13/2014 | | | |FINDINGS: | |There's been interval extubation and removal of the nasogastric tube. There continues to be bilateral interstitial and airspace opacities. Left basilar atelectasis and probable minima l effusion. | | | |IMPRESSION: | |1. Interval removal of the endotracheal tube and nasogastric tube. | |2. Persistent bilateral diffuse interstitial and airspace opacities | | | | | | | | | + + Protime INR (04/14/2014 4:22 AM PST) + + + + + + | Component | Value | Ref Range | Performed | Pathologist | | | | | At | Signature | + + + + + + | INR | 1.4Comment: REFERENCE | | [...] | | | | | performed at [facility];[address] | | | | | | [address];[place], [place] | | | | | | [address] | | | | + + + [...] + +---------+ + + External Lab: CBC (04/14/2014 4:22 AM PST) + + + + + + | Component | Value | Ref Range | Performed | Pathologist | | | | | At | Signature | + + + + + + | WBC | 20.1 (H)Comment: Testing | 3.8 - 11.0 K/uL | EXTERNAL | | | | performed at [facility], [address] | | LAB | | | | [address], | | | | | | [place] [address] | | | | + + + + + + | Non- | 4.43Comment: Testing | 3.70 - 5.10 | EXTERNAL | | | Red Blood | performed at [facility], [address] | M/uL | LAB | | | Cells | [address], | | | | | Counted | [place] [address] | | | | + + + + + + | Hemoglobin | 10.8 (L)Comment: Testing | 11.3 - 15.5 | EXTERNAL | | | | performed at [facility], [address] | g/dL | LAB | | | | [address], | | | | | | [place] [address] | | | | + + + + + + | Hematocrit, | 36.2Comment: Testing | 34.0 - 46.0 % | EXTERNAL | | | POC | performed at [facility], [address] | | LAB | | | | [address], | | | | | | [place] [address] | | | | + + + + + + | MCV | 81.7Comment: Testing | 80.0 - 100.0 fl | EXTERNAL | | | | performed at [facility], [address] | | LAB | | | | [address], | | | | | | [place] [address] | | | | + + + + + + | MCH | 24.5 (L)Comment: Testing | 27.0 - 34.0 pg | EXTERNAL | | | | performed at [facility], [address] | | LAB | | | | [address], | | | | | | [place] [address] | | | | + + + + + + | MCHC | 29.9 (L)Comment: Testing | 32.0 - 35.5 | EXTERNAL | | | | performed at [facility], [address] | g/dL | LAB | | | | [address], | | | | | | [place] [address] | | | | + + + + + + | RDW-CV | 63.0 (H)Comment: Testing | 37 - 53 fl | EXTERNAL | | | | performed at [facility], [address] | | LAB | | | | [address], | | | | | | [place], [place] [address] | | | | + + + + + + | Platelet | 325Comment: Testing | 150 - 400 K/uL | EXTERNAL | | | Count | performed at [facility], [address] | | LAB | | | Plasma | [address], | | | | | | [place], [place] [address] | | | | + + + + + + | MPV | 9.5Comment: Testing | fl | EXTERNAL | | | | performed at [facility], [address] | | LAB | | | | [address], | | | | | | [place], [place] [address] | | | | + + + + + + | Differentia | MANUALComment: Testing | | EXTERNAL | | | l Type | performed at [facility], [address] | | LAB | | | | [address], | | | | | | [place] [address] | | | | + + + + + + | Segmented | 86Comment: Testing | % | EXTERNAL | | | Neutrophils | performed at [facility], [address] | | LAB | | | Manual | [address], | | | | | | [place] [address] | | | | + + + + + + | % Bands | 2Comment: Testing | % | EXTERNAL | | | | performed at [facility], [address] | | LAB | | | | [address], | | | | | | [place] [address] | | | | + + + + + + | Lymphocytes | 5Comment: Testing | % | EXTERNAL | | | Manual | performed at [facility], [address] | | LAB | | | | [address], | | | | | | [place] [address] | | | | + + + + + + | Monocytes | 7Comment: Testing | % | EXTERNAL | | | Manual | performed at [facility], [address] | | LAB | | | | [address], | | | | | | [place] [address] | | | | + + + + + + | Absolute | 17.3 (H)Comment: Testing | 1.9 - 7.4 K/uL | EXTERNAL | | | Neutrophils | performed at [facility], [address] | | LAB | | | | [address], | | | | | | [place] [address] | | | | + + + + + + | Bands | 0.4 (H)Comment: Testing | 0 - 0.2 K/uL | EXTERNAL | | | Manual | performed at [facility], [address] | | LAB | | | | [address], | | | | | | [place] [address] | | | | + + + + + + | Absolute | 1.0Comment: Testing | 1.0 - 3.9 K/uL | EXTERNAL | | | Lymphocytes | performed at [facility], [address] | | LAB | | | | [address], | | | | | | [place] [address] | | | | + + + + + + | Absolute | 1.4 (H)Comment: Testing | 0 - 0.8 K/uL | EXTERNAL | | | Monocytes | performed at [facility], [address] | | LAB | | | | [address], | | | | | | [place] [address] | | | | + + + + + + | RBC | NORMAL RBC MORPHComment: | | EXTERNAL | | | Morphology | NORMAL PLT MORPHTesting | | LAB | | | | performed at [facility], [address] | | | | | | [address], | | | | | | [place] [address] | | | | + + + + + + + + | Specimen | + + | Blood specimen | | (specimen) | + + + +---------+ + + | Performing | Address | City/State/Zipcode | Phone Number | | Organization | | | | + +---------+ + + | EXTERNAL LAB | | | | + +---------+ + + Phosphorus (04/14/2014 4:22 AM PST) + + + + + + | Component | Value | Ref Range | Performed | Pathologist | | | | | At | Signature | + + + + + + | PHOSPHORUS | 2.9Comment: Testing | 2.3 - 4.8 mg/dL | EXTERNAL | | | | performed at [facility];[address] | | LAB | | | | [address];[place] | | | | | | [address] | | | | + + + + + + + + | Specimen | + + | Blood specimen | | (specimen) | + + + +---------+ + + | Performing | Address | City/State/Zipcode | Phone Number | | Organization | | | | + +---------+ + + | EXTERNAL LAB | | | | + +---------+ + + Magnesium (04/14/2014 4:22 AM PST) + + + + + + | Component | Value | Ref Range | Performed | Pathologist | | | | | At | Signature | + + + + + + | Magnesium | 2.3Comment: Testing | 1.7 - 2.4 mg/dL | EXTERNAL | | | | performed at [facility];[address] | | LAB | | | | [address] [facility];[place], [place] | | | | | | [address] | | | | + + + [...] + +---------+ + + Basic Metabolic Panel (04/14/2014 4:22 AM PST) + + + + + + | Component | Value | Ref Range | Performed | Pathologist | | | | | At | Signature | + + + + + + | Na | 147 (H)Comment: Testing | 135 - 143 | EXTERNAL | | | | performed at [facility];[address] | mmol/L | LAB | | | | [address];[place] | | | | | | [address] | | | | + + + + + + | K | 3.6Comment: Testing | 3.5 - 4.9 | EXTERNAL | | | | performed at [facility];[address] | mmol/L | LAB | | | | [address];[place] | | | | | | [address] | | | | + + + + + + | Cl | 109Comment: Testing | 99 - 109 mmol/L | EXTERNAL | | | | performed at [facility];[address] | | LAB | | | | [address];[place] | | | | | | [address] | | | | + + + + + + | CO2 | 31Comment: Testing | 23 - 32 mmol/L | EXTERNAL | | | | performed at [facility];[address] | | LAB | | | | [address];[place] | | | | | | [address] | | | | + + + + + + | Anion Gap | 11Comment: Testing | 5 - 20 mmol/L | EXTERNAL | | | | performed at [facility];[address] | | LAB | | | | [address];[place] | | | | | | [address] | | | | + + + + + + | Glucose, | 85Comment: Testing | 65 - 99 mg/dL | EXTERNAL | | | Fasting | performed at [facility];[address] | | LAB | | | | [address];[place] | | | | | | [address] | | | | + + + + + + | BUN | 18Comment: Testing | 8 - 25 mg/dL | EXTERNAL | | | | performed at [facility];[address] | | LAB | | | | [address];[place] | | | | | | [address] | | | | + + + + + + | Creatinine | 0.89Comment: Testing | 0.50 - 1.00 | EXTERNAL | | | | performed at [facility];[address] | mg/dL | LAB | | | | [address];[place] | | | | | | [address] | | | | + + + + + + | BUN/Creatin | 20Comment: Testing | | EXTERNAL | | | ine Ratio | performed at [facility];[address] | | LAB | | | | [address];[place] | | | | | | [address] | | | | + + + + + + | Calcium | 8.0 (L)Comment: Testing | 8.5 - 10.2 | EXTERNAL | | | | performed at [facility];[address] | mg/dL | LAB | | | | [address];[place], [place] | | | | | | [address] | | | | + + + [...] | | | | | | at [facility];[address];[place] [address] | | | | + + + + + + + + | Specimen | + + | Blood specimen | | (specimen) | + + + +---------+ + + | Performing | Address | City/State/Zipcode | Phone Number | | Organization | | | | + +---------+ + + | EXTERNAL LAB | | | | + +---------+ + + Potassium (04/14/2014 12:46 AM PST) + + + + + + | Component | Value | Ref Range | Performed | Pathologist | | | | | At | Signature | + + + + + + | K | 3.8Comment: Testing | 3.5 - 4.9 | EXTERNAL | | | | performed at [facility];[address] | mmol/L | LAB | | | | [address];[place], [place] | | | | | | [address] | | | | + + + + + + + + | Specimen | + + | Blood specimen | | (specimen) | + + + +---------+ + + | Performing | Address | City/State/Zipcode | Phone Number | | Organization | | | | + +---------+ + + | EXTERNAL LAB | | | | + +---------+ + + Phosphorus (04/14/2014 12:46 AM PST) + + + + + + | Component | Value | Ref Range | Performed | Pathologist | | | | | At | Signature | + + + + + + | PHOSPHORUS | 2.9Comment: Testing | 2.3 - 4.8 mg/dL | EXTERNAL | | | | performed at [facility];[address] | | LAB | | | | [address];[place], [place] | | | | | | [address] | | | | + + + + + + + + | Specimen | + + | Blood specimen | | (specimen) | + + + +---------+ + + | Performing | Address | City/State/Zipcode | Phone Number | | Organization | | | | + +---------+ + + | EXTERNAL LAB | | | | + +---------+ + + Magnesium (04/14/2014 12:46 AM PST) + + + + + + | Component | Value | Ref Range | Performed | Pathologist | | | | | At | Signature | + + + + + + | Magnesium | 2.2Comment: Testing | 1.7 - 2.4 mg/dL | EXTERNAL | | | | performed at [facility] | | LAB | | | | [address];[place], [place] | | | | | | [address] | | | | + + + [...] + +---------+ + + HISTORICAL MICROBIOLOGY RESULT (04/13/2014 3:38 PM PST) + + | Specimen | + + | Body fluid sample | | (specimen) | + + + + + | Narrative | Performed At | + + + | MICRO SPECIMEN SOURCE SPUTUM Testing | EXTERNAL LAB | | performed at [facility];[address] [facility];[place] [address] Pneumocystis Smear, | | | DFA ACCESSION NO. | | | [id number] SPECIMEN SOURCE SPUTUM | | | RESULT NO PNEUMOCYSTIS SEEN | | | BY DIRECT | | | FLUORESCENT ANTIBODY STAIN Testing performed at [facility] | | | [place], [address] [facility] [address] PNEMOCYSTIS FA,STATUS | | | REPORT STATUS FINAL 04/15/2014 | | | Testing performed at [facility], [address] | | | [place] [address] | | + + + + +---------+ + + | Performing | Address | City/State/Zipcode | Phone Number | | Organization | | | | + +---------+ + + | EXTERNAL LAB | | | | + +---------+ + + Potassium (04/13/2014 1:54 PM PST) + + + + + + | Component | Value | Ref Range | Performed | Pathologist | | | | | At | Signature | + + + + + + | K | 3.0 (L)Comment: SLT | 3.5 - 4.9 | EXTERNAL | | | | HEMOLYSISTesting | mmol/L | LAB | | | | performed at [facility];[address] | | | | | [address];[place], [place] | | | | | | [address] | | | | + + + + + + + + | Specimen | + + | Blood specimen | | (specimen) | + + + +---------+ + + | Performing | Address | City/State/Zipcode | Phone Number | | Organization | | | | + +---------+ + + | EXTERNAL LAB | | | | + +---------+ + + Phosphorus (04/13/2014 1:54 PM PST) + + + + + + | Component | Value | Ref Range | Performed | Pathologist | | | | | At | Signature | + + + + + + | PHOSPHORUS | 2.2 (L)Comment: Testing | 2.3 - 4.8 mg/dL | EXTERNAL | | | | performed at [facility] | | LAB | | | | [address] [facility];[place], [place] | | | | | | [address] | | | | + + + + + + + + | Specimen | + + | Blood specimen | | (specimen) | + + + +---------+ + + | Performing | Address | City/State/Zipcode | Phone Number | | Organization | | | | + +---------+ + + | EXTERNAL LAB | | | | + +---------+ + + Magnesium (04/13/2014 1:54 PM PST) + + + + + + | Component | Value | Ref Range | Performed | Pathologist | | | | | At | Signature | + + + + + + | Magnesium | 1.5 (L)Comment: SLT | 1.7 - 2.4 mg/dL | EXTERNAL | | | | HEMOLYSISTesting | | LAB | | | | performed at [facility];[address] | | | | | | [address];[place] | | | | | | [address] | | | | + + + + + + + + | Specimen | + + | Blood specimen | | (specimen) | + + + +---------+ + + | Performing | Address | City/State/Zipcode | Phone Number | | Organization | | | | + +---------+ + + | EXTERNAL LAB | | | | + +---------+ + + Protime INR (04/13/2014 9:20 AM PST) + + + + + + | Component | Value | Ref Range | Performed | Pathologist | | | | | At | Signature | + + + + + + | INR | 2.5Comment: REFERENCE | | EXTERNAL | | | [...] | | | | | performed at [facility];[address] | | | | | | [facility];[place], [place] | | | | | | [address] | | | | + + + + + + + + | Specimen | + + | Blood specimen | | (specimen) | + + + +---------+ + + | Performing | Address | City/State/Zipcode | Phone Number | | Organization | | | | + +---------+ + + | EXTERNAL LAB | | | | + +---------+ + + XR Chest 1 Vw (04/13/2014 7:10 AM PST) + + | Specimen | + + | | + + + + + | Impressions | Performed At | + + + | 1. Stable chest. | | + + + + + + | Narrative | Performed At | + + + | MACKENZIE DIANE CHEST 1 VIEW 04/13/2014 7:10 AM HISTORY: Tube | | | placement. TECHNIQUE: One view chest. FINDINGS: Compared | | | with 04/12/14. Tubes and lines appear unchanged. There are persistent | | | severe diffuse bilateral infiltrates, edema, or ARDS with little | | | significant change. Heart size is probably normal. No pneumothorax or | | | pleural effusion is seen. | | + + + + + | Procedure Note | + + | Judson, Rad Conversion - 11/24/2018 6:38 AM PDT MACKENZIE GIL CHEST 1 VIEW04/13/2014 7:10 | | AM HISTORY:Tube placement. TECHNIQUE:One view chest. FINDINGS:Compared with 04/12/14. | | Tubes and lines appear unchanged. There are persistent severe diffuse bilateral | | infiltrates, edema, or ARDS with little significant change. Heart size is probably | | normal. No pneumothorax or pleural effusion is seen. IMPRESSION: 1. Stable chest. | | | | | |TECHNIQUE: | |One view chest. | | | |FINDINGS: | |Compared with 04/12/14. Tubes and lines appear unchanged. There are persistent severe diffuse bilateral infiltrates, edema, or ARDS with little significant change. Heart size is probabl y normal. No pneumothorax or pleural effusion is seen. | | | |IMPRESSION: | |1. Stable chest. | | | | | + + External Lab: CBC (04/13/2014 6:40 AM PST) + + + + + + | Component | Value | Ref Range | Performed | Pathologist | | | | | At | Signature | + + + + + + | WBC | 21.0 (H)Comment: Testing | 3.8 - 11.0 K/uL | EXTERNAL | | | | performed at [facility];[address] | | LAB | | | | [address];[place] | | | | | | [address] | | | | + + + + + + | Non- | 4.14Comment: Testing | 3.70 - 5.10 | EXTERNAL | | | Red Blood | performed at [facility];[address] | M/uL | LAB | | | Cells | [address];[place] | | | | | Counted | [address] | | | | + + + + + + | Hemoglobin | 10.0 (L)Comment: Testing | 11.3 - 15.5 | EXTERNAL | | | | performed at [facility];[address] | g/dL | LAB | | | | [address];[place] | | | | | | [address] | | | | + + + + + + | Hematocrit, | 32.7 (L)Comment: Testing | 34.0 - 46.0 % | EXTERNAL | | | POC | performed at [facility];[address] | | LAB | | | | [address];[place] | | | | | | [address] | | | | + + + + + + | MCV | 79.1 (L)Comment: Testing | 80.0 - 100.0 fl | EXTERNAL | | | | performed at [facility];[address] | | LAB | | | | [address];[place] | | | | | | [address] | | | | + + + + + + | MCH | 24.3 (L)Comment: Testing | 27.0 - 34.0 pg | EXTERNAL | | | | performed at [facility];[address] | | LAB | | | | [address];[place] | | | | | | [address] | | | | + + + + + + | MCHC | 30.7 (L)Comment: Testing | 32.0 - 35.5 | EXTERNAL | | | | performed at [facility];[address] | g/dL | LAB | | | | [address];[place] | | | | | | [address] | | | | + + + + + + | RDW-CV | 60.8 (H)Comment: Testing | 37 - 53 fl | EXTERNAL | | | | performed at [facility];[address] | | LAB | | | | [address];[place] | | | | | | [address] | | | | + + + + + + | Platelet | 281Comment: Testing | 150 - 400 K/uL | EXTERNAL | | | Count | performed at [facility];[address] | | LAB | | | Plasma | [address];[place] | | | | | | [address] | | | | + + + + + + | MPV | 9.1Comment: Testing | fl | EXTERNAL | | | | performed at [facility];[address] | | LAB | | | | [address];[place] | | | | | | [address] | | | | + + + + + + | Differentia | MANUALComment: Testing | | EXTERNAL | | | l Type | performed at [facility];[address] | | LAB | | | | [address];[place] | | | | | | [address] | | | | + + + + + + | Nucleated | 1 (H)Comment: Testing | /100WBC | EXTERNAL | | | Red Blood | performed at [facility];[address] | | LAB | | | Cells | [address];[place] | | | | | | [address] | | | | + + + + + + | Segmented | 91Comment: Testing | % | EXTERNAL | | | Neutrophils | performed at [facility];[address] | | LAB | | | Manual | [address];[place] | | | | | | [address] | | | | + + + + + + | Lymphocytes | 6Comment: Testing | % | EXTERNAL | | | Manual | performed at [facility];[address] | | LAB | | | | [address];[place] | | | | | | [address] | | | | + + + + + + | Monocytes | 3Comment: Testing | % | EXTERNAL | | | Manual | performed at [facility];[address] | | LAB | | | | [address];[place] | | | | | | [address] | | | | + + + + + + | Absolute | 19.1 (H)Comment: Testing | 1.9 - 7.4 K/uL | EXTERNAL | | | Neutrophils | performed at [facility];[address] | | LAB | | | | [address];[place] | | | | | | [address] | | | | + + + + + + | Absolute | 1.3Comment: Testing | 1.0 - 3.9 K/uL | EXTERNAL | | | Lymphocytes | performed at [facility];[address] | | LAB | | | | [address];[place] | | | | | | [address] | | | | + + + + + + | Absolute | 0.6Comment: Testing | 0 - 0.8 K/uL | EXTERNAL | | | Monocytes | performed at [facility];[address] | | LAB | | | | [address];[place] | | | | | | [address] | | | | + + + + + + | Platelet | ADEQUATEComment: Testing | | EXTERNAL | | | Estimate | performed at [facility];[address] | | LAB | | | | [address];[place] | | | | | | [address] | | | | + + + + + + | RBC | 3+Comment: | | EXTERNAL | | | Morphology | ANISO1+MACRO1+MICRO1+HYP | | LAB | | | | O1+POLY2+TARGET1+ACANTHO | | | | | | Testing performed at | | | | | | [facility];[address];[place] [address] | | | | | |MICRO | | | | | |1+ | | | | | |HYPO | | | | | |1+ | | | | | |POLY | | | | | |2+ | | | | | |TARGET | | | | | |1+ | | | | | |ACANTHO | | | | | |Testing performed at [facility];[address] [place] [address];[place] [address] | | | | | | | | | | + + + + + + + + | Specimen | + + | | + + + +---------+ + + | Performing | Address | City/State/Zipcode | Phone Number | | Organization | | | | + +---------+ + + | EXTERNAL LAB | | | | + +---------+ + + Procalcitonin (04/13/2014 4:41 AM PST) + + + + + + | Component | Value | Ref Range | Performed | Pathologist | | | | | At | Signature | + + + + + + | Source | PLASMAComment: Testing | | EXTERNAL | | | | performed at [facility] | | LAB | | | | [address];[place], [place] | | | | | | [address] | | | | + + + + + + | PROCALCITON | 0.75 (H)Comment: | ng/mL | EXTERNAL | | | [...] | | | | | | at [facility];[address] [place] [address] | | | | | | [facility];[place] [address] | | | | + + + + + + + + | Specimen | + + | | + + + +---------+ + + | Performing | Address | City/State/Zipcode | Phone Number | | Organization | | | | + +---------+ + + | EXTERNAL LAB | | | | + +---------+ + + Basic Metabolic Panel (04/13/2014 4:41 AM PST) + + + + + + | Component | Value | Ref Range | Performed | Pathologist | | | | | At | Signature | + + + + + + | Na | 141Comment: Testing | 135 - 143 | EXTERNAL | | | | performed at [facility];[address] | mmol/L | LAB | | | | [address];[place] | | | | | | [address] | | | | + + + + + + | K | 5.4 (H)Comment: SLT | 3.5 - 4.9 | EXTERNAL | | | | HEMOLYSISTesting | mmol/L | LAB | | | | performed at [facility];[address] | | | | | | [address];[place] | | | | | | [address] | | | | + + + + + + | Cl | 107Comment: Testing | 99 - 109 mmol/L | EXTERNAL | | | | performed at [facility];[address] | | LAB | | | | [address];[place] | | | | | | [address] | | | | + + + + + + | CO2 | 24Comment: Testing | 23 - 32 mmol/L | EXTERNAL | | | | performed at [facility];[address] | | LAB | | | | [address];[place] | | | | | | [address] | | | | + + + + + + | Anion Gap | 15Comment: Testing | 5 - 20 mmol/L | EXTERNAL | | | | performed at [facility];[address] | | LAB | | | | [address];[place] | | | | | | [address] | | | | + + + + + + | Glucose, | 94Comment: Testing | 65 - 99 mg/dL | EXTERNAL | | | Fasting | performed at [facility];[address] | | LAB | | | | [address];[place] | | | | | | [address] | | | | + + + + + + | BUN | 14Comment: Testing | 8 - 25 mg/dL | EXTERNAL | | | | performed at [facility];[address] | | LAB | | | | [address];[place] | | | | | | [address] | | | | + + + + + + | Creatinine | 0.72Comment: Testing | 0.50 - 1.00 | EXTERNAL | | | | performed at [facility];[address] | mg/dL | LAB | | | | [address];[place] | | | | | | [address] | | | | + + + + + + | BUN/Creatin | 19Comment: Testing | | EXTERNAL | | | ine Ratio | performed at [facility] [place];[address] | | LAB | | | | [address];[place] | | | | | | [address] | | | | + + + + + + | Calcium | 7.3 (L)Comment: Testing | 8.5 - 10.2 | EXTERNAL | | | | performed at [facility];888 | mg/dL | LAB | | | | [address];[place] | | | | | | [address] | | | | + + + [...] | | | | | | at [facility];[address] | | | | | | [address];[place] [address] | | | | + + + + + + + + | Specimen | + + | Blood specimen | | (specimen) | + + + +---------+ + + | Performing | Address | City/State/Zipcode | Phone Number | | Organization | | | | + +---------+ + + | EXTERNAL LAB | | | | + +---------+ + + XR Chest 1 Vw (04/12/2014 10:33 PM PST) + + | Specimen | + [...] for image storage only | + + Culture, Blood, 2nd Specimen (04/12/2014 6:10 PM PST) + + | Specimen | + + | Blood specimen | | (specimen) | + + + + + | Narrative | Performed At | + + + | Specimen Description BLOOD, PERIPHERAL DRAW | EXTERNAL LAB | | SPECIAL REQUESTS R HAND | | | Testing performed at [facility];888 | | | [facility];[place] [address] CULTURE | | | NO GROWTH | | | Testing performed at [facility], [address] [facility], [place], [place] | | | [address] | | + + + + +---------+ + + | Performing | Address | City/State/Zipcode | Phone Number | | Organization | | | | + +---------+ + + | EXTERNAL LAB | | | | + +---------+ + + PATHOLOGY CONSULT REQUEST (04/12/2014 5:31 PM PST) + + + + + + | Component | Value | Ref Range | Performed | Pathologist | | | | | At | Signature | + + + + + + | Pathologist | Comment: Review of CBC | | EXTERNAL | | | Review 1 | collected 04/12/2014 at | | LAB | | | | 1731 hrs. I agree with | | | | | | the automated and manual | | | | | | cell counts. The | | | | | | presence of anemia and | | | | | | neutrophilia is | | | | | | confirmed. The anemia is | | | | | | hyopchromic and | | | | | | microcytic, consistent | | | | | | with iron deficiency or | | | | | | chronic disease. The | | | | | | RBC's show non-specific | | | | | | anisopoikilocytosis. | | | | | | Occasional NRBC's are | | | | | | present. The Platelets | | | | | | are normal in number and | | | | | | morphology. Dr. Pond | | | | | | 04/16/2013. TK/ew | | | | | | Testing performed at | | | | | | [facility];[address] [place] [address] | | | | | | [facility];[place] [address] | | | | + + + + + + + + | Specimen | + + | | + + + +---------+ + + | Performing | Address | City/State/Zipcode | Phone Number | | Organization | | | | + +---------+ + + | EXTERNAL LAB | | | | + +---------+ + + Protime INR (04/12/2014 5:31 PM PST) + + + + + + | Component | Value | Ref Range | Performed | Pathologist | | | | | At | Signature | + + + + + + | INR | 4.2Comment: REFERENCE | | EXTERNAL | | | [...] | | | | | performed at [facility] | | | | | | [address];[place], [place] | | | | | | [address] | | | | + + + [...] + +---------+ + + External Lab: CBC (04/12/2014 5:31 PM PST) + + + + + + | Component | Value | Ref Range | Performed | Pathologist | | | | | At | Signature | + + + + + + | WBC | 18.7 (H)Comment: Testing | 3.8 - 11.0 K/uL | EXTERNAL | | | | performed at [facility];888 | | LAB | | | | [address];[place] | | | | | | [address] | | | | + + + + + + | Non- | 4.24Comment: Testing | 3.70 - 5.10 | EXTERNAL | | | Red Blood | performed at [facility];888 | M/uL | LAB | | | Cells | [address];[place] | | | | | Counted | [address] | | | | + + + + + + | Hemoglobin | 10.3 (L)Comment: Testing | 11.3 - 15.5 | EXTERNAL | | | | performed at [facility];888 | g/dL | LAB | | | | [address];[place] | | | | | | [address] | | | | + + + + + + | Hematocrit, | 33.3 (L)Comment: Testing | 34.0 - 46.0 % | EXTERNAL | | | POC | performed at [facility];888 | | LAB | | | | [address];[place] | | | | | | [address] | | | | + + + + + + | MCV | 78.6 (L)Comment: Testing | 80.0 - 100.0 fl | EXTERNAL | | | | performed at [facility];888 | | LAB | | | | [address];[place] | | | | | | [address] | | | | + + + + + + | MCH | 24.2 (L)Comment: Testing | 27.0 - 34.0 pg | EXTERNAL | | | | performed at [facility];888 | | LAB | | | | [address];[place] | | | | | | [address] | | | | + + + + + + | MCHC | 30.8 (L)Comment: Testing | 32.0 - 35.5 | EXTERNAL | | | | performed at [facility];888 | g/dL | LAB | | | | [address];[place] | | | | | | [address] | | | | + + + + + + | RDW-CV | 61.7 (H)Comment: Testing | 37 - 53 fl | EXTERNAL | | | | performed at [facility];[address] | | LAB | | | | [address];[place] | | | | | | [address] | | | | + + + + + + | Platelet | 283Comment: Testing | 150 - 400 K/uL | EXTERNAL | | | Count | performed at [facility];[address] | | LAB | | | Plasma | [address];[place] | | | | | | [address] | | | | + + + + + + | MPV | 9.0Comment: Testing | fl | EXTERNAL | | | | performed at [facility];[address] | | LAB | | | | [address];[place] | | | | | | [address] | | | | + + + + + + | Differentia | MANUALComment: Testing | | EXTERNAL | | | l Type | performed at [facility];[address] | | LAB | | | | [address];[place] | | | | | | [address] | | | | + + + + + + | Nucleated | 3 (H)Comment: Testing | /100WBC | EXTERNAL | | | Red Blood | performed at [facility];888 | | LAB | | | Cells | [address];[place] | | | | | | [address] | | | | + + + + + + | Segmented | 91Comment: Testing | % | EXTERNAL | | | Neutrophils | performed at [facility];888 | | LAB | | | Manual | [address];[place] | | | | | | [address] | | | | + + + + + + | % Bands | 2Comment: Testing | % | EXTERNAL | | | | performed at [facility];888 | | LAB | | | | [address];[place] | | | | | | [address] | | | | + + + + + + | Lymphocytes | 2Comment: Testing | % | EXTERNAL | | | Manual | performed at [facility];888 | | LAB | | | | [address];[place] | | | | | | [address] | | | | + + + + + + | % Atypical | 2Comment: Testing | % | EXTERNAL | | | Lymphocytes | performed at [facility];888 | | LAB | | | | [address];[place] | | | | | | [address] | | | | + + + + + + | Monocytes | 3Comment: Testing | % | EXTERNAL | | | Manual | performed at [facility];888 | | LAB | | | | [address];[place] | | | | | | [address] | | | | + + + + + + | Absolute | 16.9 (H)Comment: Testing | 1.9 - 7.4 K/uL | EXTERNAL | | | Neutrophils | performed at [facility];888 | | LAB | | | | [address];[place] | | | | | | [address] | | | | + + + + + + | Bands | 0.4 (H)Comment: Testing | 0 - 0.2 K/uL | EXTERNAL | | | Manual | performed at [facility];888 | | LAB | | | | [address];[place] | | | | | | [address] | | | | + + + + + + | Absolute | 0.4 (L)Comment: Testing | 1.0 - 3.9 K/uL | EXTERNAL | | | Lymphocytes | performed at [facility];888 | | LAB | | | | [address];[place] | | | | | | [address] | | | | + + + + + + | Absolute | 0.4 (H)Comment: Testing | K/uL | EXTERNAL | | | Atypical | performed at [facility];888 | | LAB | | | Lymphocytes | [address];[place] | | | | | | [address] | | | | + + + + + + | Absolute | 0.6Comment: Testing | 0 - 0.8 K/uL | EXTERNAL | | | Monocytes | performed at [facility];888 | | LAB | | | | [address];[place] | | | | | | [address] | | | | + + + + + + | Platelet | ADEQUATEComment: Testing | | EXTERNAL | | | Estimate | performed at [facility];888 | | LAB | | | | [address];[place] | | | | | | [address] | | | | + + + + + + | RBC | 1+Comment: | | EXTERNAL | | | Morphology | ANISO1+POIK2+HYPO1+TARGE | | LAB | | | | TNORMAL PLT MORPHTesting | | | | | | performed at [facility];888 | | | | | | [facility];[place], [place] | | | | | | [address] | | | | | |HYPO | | | | | |1+ | | | | | |TARGET | | | | | |NORMAL PLT MORPH | | | | | |Testing performed at [facility];[address] [facility];[place] [address] | | | | | | | [...] + +---------+ + + Comprehensive Metabolic Panel (04/12/2014 5:31 PM PST) + + + + + + | Component | Value | Ref Range | Performed | Pathologist | | | | | At | Signature | + + + + + + | Na | 139Comment: Testing | 135 - 143 | EXTERNAL | | | | performed at [facility];888 | mmol/L | LAB | | | | [address];[place] | | | | | | [address] | | | | + + + + + + | K | 4.1Comment: SPECIMEN | 3.5 - 4.9 | EXTERNAL | | | | SLIGHTLY | mmol/L | LAB | | | | HEMOLYZEDTesting | | | | | | performed at [facility];888 | | | | | | [address];[place] | | | | | | [address] | | | | + + + + + + | Cl | 105Comment: Testing | 99 - 109 mmol/L | EXTERNAL | | | | performed at [facility];[address] | | LAB | | | | [address];[place] | | | | | | [address] | | | | + + + + + + | CO2 | 24Comment: Testing | 23 - 32 mmol/L | EXTERNAL | | | | performed at [facility];[address] | | LAB | | | | [address];[place] | | | | | | [address] | | | | + + + + + + | Anion Gap | 15Comment: Testing | 5 - 20 mmol/L | EXTERNAL | | | | performed at [facility];[address] | | LAB | | | | [address];[place] | | | | | | [address] | | | | + + + + + + | Glucose, | 137 (H)Comment: Testing | 65 - 99 mg/dL | EXTERNAL | | | Fasting | performed at [facility];888 | | LAB | | | | [address];[place] | | | | | | [address] | | | | + + + + + + | BUN | 15Comment: Testing | 8 - 25 mg/dL | EXTERNAL | | | | performed at [facility];[address] | | LAB | | | | [address];[place] | | | | | | [address] | | | | + + + + + + | Creatinine | 0.96Comment: Testing | 0.50 - 1.00 | EXTERNAL | | | | performed at [facility];888 | mg/dL | LAB | | | | [address];[place] | | | | | | [address] | | | | + + + + + + | BUN/Creatin | 15Comment: Testing | | EXTERNAL | | | ine Ratio | performed at [facility];[address] | | LAB | | | | [address];[place] | | | | | | [address] | | | | + + + + + + | Calcium | 7.5 (L)Comment: Testing | 8.5 - 10.2 | EXTERNAL | | | | performed at [facility];888 | mg/dL | LAB | | | | [address];[place] | | | | | | [address] | | | | + + + + + + | Protein, | 5.2 (L)Comment: Testing | 6.3 - 8.2 g/dL | EXTERNAL | | | Total | performed at [facility];[address] | | LAB | | | | [address];[place] | | | | | | [address] | | | | + + + + + + | Albumin | 1.6 (L)Comment: Testing | 3.6 - 5.0 g/dL | EXTERNAL | | | | performed at [facility];[address] | | LAB | | | | [address];[place] | | | | | | [address] | | | | + + + + + + | Globulin | 3.7Comment: Testing | 1.3 - 4.9 g/dL | EXTERNAL | | | | performed at [facility];[address] | | LAB | | | | [address];[place] | | | | | | [address] | | | | + + + + + + | A/G Ratio | 0.4 (L)Comment: Testing | 1.0 - 2.4 | EXTERNAL | | | | performed at [facility];[address] | | LAB | | | | [address];[place] | | | | | | [address] | | | | + + + + + + | Bilirubin | 0.3Comment: Testing | 0.1 - 1.5 mg/dL | EXTERNAL | | | Total | performed at [facility];[address] | | LAB | | | | [address];[place] | | | | | | [address] | | | | + + + + + + | ALP, | 86Comment: Testing | 35 - 115 U/L | EXTERNAL | | | External | performed at [facility];[address] | | LAB | | | | [address];[place] | | | | | | [address] | | | | + + + + + + | AST | 55 (H)Comment: SPECIMEN | 10 - 45 U/L | EXTERNAL | | | | SLIGHTLY | | LAB | | | | HEMOLYZEDTesting | | | | | | performed at [facility];[address] | | | | | | [address];[place] | | | | | | [address] | | | | + + + + + + | ALT | 18Comment: Testing | 10 - 65 U/L | EXTERNAL | | | | performed at [facility];[address] | | LAB | | | | [address];[place] | | | | | | [address] | | | | + + + [...] | | | | | | at [facility];[address] [place] [address] | | | | | | [facility];[place] [address] | | | | + + + + + + + + | Specimen | + + | Blood specimen | | (specimen) | + + + +---------+ + + | Performing | Address | City/State/Zipcode | Phone Number | | Organization | | | | + +---------+ + + | EXTERNAL LAB | | | | + +---------+ + + Culture, Blood (04/12/2014 5:30 PM PST) + + | Specimen | + + | Blood specimen | | (specimen) | + + + + + | Narrative | Performed At | + + + | Specimen Description BLOOD, PERIPHERAL DRAW | EXTERNAL LAB | | SPECIAL REQUESTS RHAND | | | Testing performed at [facility];[address] | | | [address];[place] [address] CULTURE | | | NO GROWTH | | | Testing performed at [facility], [address], [place] | | | [address] | | + + + + +---------+ + + | Performing | Address | City/State/Zipcode | Phone Number | | Organization | | | | + +---------+ + + | EXTERNAL LAB | | | | + +---------+ + + XR Chest 1 Vw (04/12/2014 5:13 PM PST) + + | Specimen | + + | | + + + + + | Impressions | Performed At | + + + | 1. Appropriate positioning of support tubes and lines. 2. | | | Multifocal airspace opacities throughout the lungs which may reflect | | | pulmonary edema versus multifocal pneumonia. Electronically | | | signed by Collin Hendrix MD on 04/12/2014 5:16 PM | | + + + + + + | Narrative | Performed At | + + + | MACKENZIE HARTLEY 1955 58 years XR CHEST 1 VIEW 04/12/2014 5:13 PM | | | INDICATION: Tube and line placement, respiratory failure | | | COMPARISON: None TECHNIQUE: Chest 1 view, AP view of the chest | | | FINDINGS: The patient is intubated with the ET tube terminating 5.8 | | | cm from the derrell. There is a Mediport in place. A enteric tube | | | extends beyond the inferior margin of the radiograph. Extensive | | | bilateral airspace consolidation is noted throughout the lungs with | | | relative sparing of the right lower lung in comparison to the | | | remainder of the lung parenchyma. There is no pneumothorax. The heart | | | is normal in size. No mediastinal widening is present. Cholecystectomy | | | clips are present in the right upper quadrant. | | + + + + + | Procedure Note | + + | Judson, Rad Conversion - 11/24/2018 6:38 AM PDT MACKENZIE [id number] yearsXR CHEST 1 | | VIEW04/12/2014 5:13 PM INDICATION: Tube and line placement, respiratory failure | | COMPARISON: None TECHNIQUE: Chest 1 view, AP view of the chest FINDINGS: The patient is | | intubated with the ET tube terminating 5.8 cm from the derrell. There is a Mediport in | | place. A enteric tube extends beyond the inferior margin of the radiograph. Extensive | | bilateral airspace consolidation is noted throughout the lungs with relative sparing of | | the right lower lung in comparison to the remainder of the lung parenchyma. There is no | | pneumothorax. The heart is normal in size. No mediastinal widening is present. | | Cholecystectomy clips are present in the right upper quadrant. IMPRESSION: 1. | | Appropriate positioning of support tubes and lines.2. Multifocal airspace opacities | | throughout the lungs which may reflect pulmonary edema versus multifocal pneumonia. | | | |FINDINGS: The patient is intubated with the ET tube terminating 5.8 cm from the derrell. Th ere is a Mediport in place. A enteric tube extends beyond the inferior margin of the radiogr aph. Extensive bilateral airspace | |consolidation is noted throughout the | | lungs with relative sparing of the right lower lung in comparison to the remainder of the lung parenchyma. There is no pneumothorax. The heart is normal in size. No mediastinal widen ing is present. Cholecystectomy clips are present in the right upper | |quadrant. | | | |IMPRESSION: | |1. Appropriate positioning of support tubes and lines. | |2. Multifocal airspace opacities throughout the lungs which may reflect pulmonary edema ve rsus multifocal pneumonia. | | | | | + + MRSA SOILA (04/12/2014 4:58 PM PST) + + | Specimen | + + | | + + + + + | Narrative | Performed At | + + + | SOURCE NARES(NOSE) | EXTERNAL LAB | | Testing performed at [facility];[address] [place] [address];[place] [address] MRSA PCR | | | NEGATIVE Testing performed at | | | [facility];[address] [place] [address];[place] [address] | | + + + + +---------+ + + | Performing | Address | City/State/Zipcode | Phone Number | | Organization | | | | + +---------+ + + | EXTERNAL LAB | | | | + +---------+ + + Urinalysis, Reflex Microscopic and/or Culture (04/12/2014 4:58 PM PST) + + + + + [...] | | | | | [place] [address] | | | | + + + + + + | Clarity, | CLEARComment: Testing | | EXTERNAL | | | Urine | performed at [facility], [address] | | LAB | | | | [address], | | | | | | [place] [address] | | | | + + + + + + | Specific | 1.021Comment: Testing | 1.002 - 1.030 | EXTERNAL | | | [place], | performed at [facility], [address] | | LAB | | | Urine | [address], | | | | | | [place] [address] | | | | + + + + + + | Leukocyte | NEGATIVEComment: Testing | | EXTERNAL | | | Esterase, | performed at [facility], [address] | | LAB | | | Urine | [address], | | | | | | [place] [address] | | | | + + + + + + | Nitrite, | NEGATIVEComment: Testing | | EXTERNAL | | | Urine | performed at [facility], [address] | | LAB | | | | [address], | | | | | | [place] [address] | | | | + + + + + + | Urobilinoge | 0.2Comment: Testing | mg/dL | EXTERNAL | | | n, Urine | performed at [facility], [address] | | LAB | | | | [address], | | | | | | [place] [address] | | | | + + + + + + | Protein, | NEGATIVEComment: Testing | mg/dL | EXTERNAL | | | Urine | performed at [facility], [address] | | LAB | | | | [address], | | | | | | [place] [address] | | | | + + + + + + | pH, Urine | 6.0Comment: Testing | 5.0 - 8.0 | EXTERNAL | | | | performed at [facility], [address] | | LAB | | | | [address], | | | | | | [place] [address] | | | | + + + + + + | Blood, | NEGATIVEComment: Testing | | EXTERNAL | | | Urine | performed at [facility], [address] | | LAB | | | | [address], | | | | | | [place] [address] | | | | + + + + + + | Ketones | NEGATIVEComment: Testing | mg/dL | EXTERNAL | | | | performed at [facility], [address] | | LAB | | | | [address], | | | | | | [place] [address] | | | | + + + + + + | Bilirubin, | NEGATIVEComment: Testing | | EXTERNAL | | | Urine | performed at [facility], [address] | | LAB | | | | [address], | | | | | | [place] [address] | | | | + + + + + + | Glucose, | NEGATIVEComment: Testing | mg/dL | EXTERNAL | | | Urine | performed at [facility], [address] | | LAB | | | | [address], | | | | | | [place] [address] | | | | + + + + + + + + | Specimen | + + | | + + + +---------+ + + | Performing | Address | City/State/Zipcode | Phone Number | | Organization | | | | + +---------+ + + | EXTERNAL LAB | | | | + +---------+ + + Gram Stain, reflex Sputum Culture (04/12/2014 4:42 PM PST) + + | Specimen | + + | Body fluid sample | | (specimen) | + + + + + | Narrative | Performed At | + + + | Specimen Description TRACHEAL ASPIRATE GRAM | EXTERNAL LAB | | STAIN GREATER THAN 10 WBCS/LPF | | | LESS THAN 10 | | | SEC/LPF NO | | | ORGANISMS SEEN CULTURE 1+ | | | MATTHIEU | | | ALBICANSAbnormal | | | Testing performed at [facility], [address], [place] | | | [address] | | + + + + +---------+ + + | Performing | Address | City/State/Zipcode | Phone Number | | Organization | | | | + +---------+ + + | EXTERNAL LAB | | | | + +---------+ + + XR Chest 1 Anders (04/11/2014 10:33 PM PST) + + | Specimen | + [...] for image storage only | + + XR Chest 1 Vw (04/09/2014 10:33 PM PST) + + | Specimen | + [...] Roper Conversion - 11/24/2018 6:38 AM PDT This is a non-reportable procedure | | without a radiologist report and isused for image storage only | + + ECHO Complete (04/08/2014 10:33 PM PST) + + | Specimen | + [...] for image storage only | + + CT Abdomen Pelvis w Contrast (04/06/2014 10:33 PM PST) + + | Specimen | + [...] + | Diagnosis | + + | Acute gastroenteritis Other and unspecified noninfectious gastroenteritis and colitis | + + | PAF (paroxysmal atrial fibrillation) (HCC) Atrial fibrillation | + + | Sepsis, unspecified Sepsis | + + | Acute systolic heart failure (HCC) Acute systolic heart failure | + + | Acute respiratory failure (HCC) Acute respiratory failure | + + | Aspiration pneumonia (HCC) Pneumonitis due to inhalation of food or vomitus | + + | COPD (chronic obstructive pulmonary disease) (HCC) Chronic airway obstruction, not | | elsewhere classified | + + | Crohn's disease (HCC) Regional enteritis of unspecified site | + + | Embolism and thrombosis of splenic artery | + + | Microcytic anemia Iron deficiency anemia, unspecified | + + | Narcotic dependence (HCC) Unspecified drug dependence, unspecified | + + documented in this encounter
--- OUTSIDE RECORDS SUMMARY | ~2019-11-03 | XMS | Encounter Summary ---
Demographics + + + | Address | [address] | | | [place] [address] | + + + | Home Phone | | + + + | Preferred Language | Unknown | + + + | Marital Status | | + + + | Voodoo Affiliation | NRP | + + + [...] [place], [place] | | | | | [address] | | + + + + + | Cami Sawyer | ECON | Unknown | | + + + + + Care Team Providers + +------+ + | Care Arc Cutter Name | Role | Phone | + [...] 04/24/ | Anesthesia | 6A Intra Op 3181 | Joana Sellers MD | | | 2014 | Event | [facility] | [address] | | | | | [facility] | [facility] | | | | | Hospital Admitting | [place] [address] | | | | | Desk Located on the | [phone] | | | | | 9th floor | | | | | | [place], [place] | Rajiv Willingham MD | | | | | [address] | [facility] | | | | | | [facility] [address] | | | | | | [facility] | | | | | | [place] [address] | | | | | | [phone] | | | | | | | [...] by | | D - | "port"); [facility]; 01/27/17 | Alberto London RN | Discontinued After | | [facility] | (Automatic cleanup per RA | | Discharge | | l Line | 3006--contact admin for | | | | | questions.); 1622 (Automatic | | | | | cleanup per RA 3006--contact | | | | | admin for questions.); Yes; Other | | | | | (comment) ([facility]); No; Left; | | | | | [...]
--- OUTSIDE RECORDS SUMMARY | ~2019-11-03 | XMS | Encounter Summary ---
Demographics + + + | Address | [address] | | | [place] [address] | + + + | Home Phone | | + + + | Preferred Language | Unknown | + + + | Marital Status | | + + + | Congregation Affiliation | Unknown | + + + | Race | Unknown | + + + | Ethnic Group | Unknown | + + + Author + + + | Author | [facility] | | | and [place] | + + + | Organization | [facility] | | | [...] Team Providers + +------+ + | Care Piano Builder Name | Role | Phone | + [...] Provider Unknown | | | | | [place], [place] | [phone] | | | | | [phone] | | | | | | [phone] | | | +--------+ + + + [...]
--- OUTSIDE RECORDS SUMMARY | ~2019-11-03 | XMS | Encounter Summary ---
Demographics + + + | Address | [address] | | | [place] [address] | + + + | Home Phone | | + + + | Preferred Language | Unknown | + + + | Marital Status | | + + + | Taoism Affiliation | Unknown | + + + [...] | + + +---------+ + | Terrance Soyf | ECON | Unknown | | + + +---------+ + Care Team Providers + +------+ + | Care Deputy Juvenile Officer Name | Role | Phone | [...] Provider Unknown | | | | | [place], [place] | [phone] | | | | | [phone] | | | | | | [phone] | | | +--------+ + + + [...]
--- OUTSIDE RECORDS SUMMARY | ~2019-11-03 | XMS | Encounter Summary ---
Demographics + + + | Address | [address] | | | [place] [address] | + + + | Home Phone | | + + + | Preferred Language | Unknown | + + + | Marital Status | | + + + | Druze Affiliation | Unknown | + + + | Race | Unknown | + + + | Ethnic Group | Unknown | + + + Author + + + | Author | [facility] | | | and [place] | + + + | Organization | [facility] | | | [...] Team Providers + +------+ + | Care Compensation Agent Name | Role | Phone | + +------+ + | No, Physician | PCP | Unavailable | + +------+ + Encounter Details +--------+ + + + + | Date | Type | Department | Care Team | Description | +--------+ + + + + | 01/03/ | Orders Only | [facility] | Conversion | | | 2015 | | CONVERSION [address] | Transaction, | | | | | [address] | Provider Unknown | | | | | [place], [place] | [phone] | | | | | [address] | | | | | | [phone] | | | +--------+ + + + [...]
--- OUTSIDE RECORDS SUMMARY | ~2019-11-03 | XMS | Encounter Summary ---
Demographics + + + | Address | [address] | | | [place] [address] | + + + | Home Phone [...] [place], [place] | | | | | [address] | | + + + + + | Cami Sawyer | ECON | Unknown | | + + + + + Care Team Providers + +------+ + | Care Court Officer Name | Role | Phone | [...] 2011 | Event | [address] | [address] | | | | | [facility] | [address] | | | | | Hospital Admitting | [place], [place] | | | | | Desk Located on the | [address] | | | | | 9th floor | [phone] | | | | | [facility] [place] | | | | | | [address] | Bigg Smalls MD | | | | | | [address] | | | | | | [address] | | | | | | [place], [place] | | | | | | [address] | | | | | | [phone] | | | | | | | [...] | Froylan Vázquez CRNA 15 min. Break 2214-3836 | | | 9 | | | [...] Smith RN | | Tanvi | | PERFORMANCE INSTRUCTOR | | | y Cath | | [...] Cole RN | | Periph | | PERFORMANCE INSTRUCTOR | | | eral | | | [...]
--- OUTSIDE RECORDS SUMMARY | ~2019-11-03 | XMS | Encounter Summary ---
Demographics + + + | Address | [address] | | | [place] [address] | + + + | Home Phone | | + + + | Preferred Language | Unknown | + + + | Marital Status | | + + + | Jewish Affiliation | Unknown | + + + | Race | Unknown | + + + | Ethnic Group | Unknown | + + + Author + + + | Author | [facility] | | | and [place] | + + + | Organization | [facility] | | [...] Team Providers + +------+ + | Care Prototype Deicer Assembler Name | Role | Phone | + +------+ + | No, Physician | PCP | Unavailable | + +------+ + Encounter Details +--------+ + + + + | Date | Type | Department | Care Team | Description | +--------+ + + + + | 03// | Documentati | [facility] | Angelina Sandoval, | | | 2019 | on | GENERAL SURGERY [address] | Weatherization And Housing Inspector | | | | | [address] | | | | | | [place], [place] | | | | | | [address] | | | | | | [phone] | | | +--------+ + + + [...] as of this encounter Progress Angelina Riley, Weatherization And Housing Inspector - 06/18/2019 1:20 PM PDTOstomy supply request sent to [facility] via fax. Fax confirmation received. documented in [...]
--- OUTSIDE RECORDS SUMMARY | ~2019-11-03 | XMS | Encounter Summary ---
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
--- OUTSIDE RECORDS SUMMARY | ~2019-11-03 | XMS | Encounter Summary ---
Demographics + + + | Address | [address] | | | [place] [address] | + + + | Home Phone | | + + + | Preferred Language | Unknown | + + + | Marital Status | | + + + | Anglican Affiliation | Unknown | + + + | Race | Unknown | + + + | Ethnic Group | Unknown | + + + Author + + + | Author | [facility] | | | and [place] | + + + | Organization | [facility] | | | and [...] Providers + +------+ + | Care Inspector Motor Vehicles Name | Role | Phone | + [...] + + | 03/12/ | Telephone | [facility] | Severo, | Follow-up | | 2019 | | GENERAL SURGERY [address] | [address] | | | | | [address] | [address] | | | | | [place], [place] | [place] [address] | | | | | [address] | [phone] | | | | | [phone] | | | +--------+ + + + [...] Details: returning call to speak to medical doctor md/medical director also schedule an radha ointment. Patient states she is coming from [facility] in the morning would li ke schedule [...] home number. elephone Encounter - Dulce Sun, Offbearer Sewer Pipe - 03/13/2019 8:09 AM PSTI have attempted [...] transfer the call to a tamera cisneros torpedoman's mate was caller made aware that if at [...]
--- OUTSIDE RECORDS SUMMARY | ~2019-11-03 | XMS | Encounter Summary ---
Demographics + + + | Address | [address] | | | [place] [address] | + + + | Home Phone | | + + + | Preferred Language | Unknown | + + + | Marital Status | | + + + | Muslim Affiliation | NRP | + + + | Race | White | + + + | Ethnic Group | Not or | + + + Author + + + | Author | [facility] | + + + | Organization | [facility] | + + + | Address | Unknown | + + + | Phone | Unavailable | + + + Support + + + + + | Name | Relationship | Address | Phone | + + + + + | Kole Hartley | LAMONT | [address] | | | | | [place], [place] | | | | | [address] | | + + + + + | Cami Sawyer | ECON | Unknown | | + + + + + Care Team Providers + +------+ + | Care Corporate Executive Chef Name | Role | Phone | + [...] | | | | Hospital Admitting | [place], [place] | | | | | Desk Located on the | [address] | | | | | 9th floor | [phone] | | | | | [place], [place] | | | | | | [address] | | | +--------+---------+ + + + [...] Crohn's disease 2. Multiple arterial thrombi 3. Maanda-rectal abscess 4. PFO Additional Diagnoses: 1. Peptic [...] was transferred from an outside hospital [facility] for ischemic colitis. Hospital Course: Arterial thrombi: the patient was admitted to [facility] from [place] because she presented wit h nausea, bilious vomiting and was found by CT scan to have bowel wall thickening, 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 At arrival to [facility] it was learned that she did NOT indeed have ischemic colitis. 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 She underwent embolectomy on 03/17, which resulted in anabaptism of flow and no loss of tissue [...] was agreed that the patient needed a care home treatment and we settled o n remicade. [...] flagyl - which was continued [place] [facility] However, vanc/cefepime/flagyl was used instead for [...] Destination: Home Other Discharge Orders and Instructions grinder set up operator thread your lovenox syringes at the [facility] [place] [facility]. Go to the hospital on Tuesday [...] whether or not the INR is truly customer sales representative of anticoagulation. In patients with [...] I NR on Tuesday. KIRIT RUST MD [facility] DEPARTMENT: [id number]- [facility] PPV Place of Service:- Inpatient Date of Service: 04/01/2012 CSN: [id number] Suggested Modifier: GC Resident Involved: Yes Suggested CPT: 34208- Dishcarge < 30 min Electronically signed by [...] questions. Debi Oconnor MD GI/Hepatology Fellow Pager: [phone] INTERVAL HISTORY: MRI abdomen shows no abscess; [...] risk of emboli, I called Dr. Rodriges (school transportation supervisor for her PCP) to coordinate f/u of [...] RUST MD [facility] DEPARTMENT: [id number]- [facility] PPV Place of Service:83617- Inpatient Date of Service: 03/31/2012 CSN: [id number] Suggested Modifier: GC Resident Involved: Yes Suggested CPT: 31352- Subsequent, Detailed/high complex, 35 min Davonte De [...] state: J Gastroenterol. 2004 Oct;39(10):948-54. PubMed PMID: [id number]. Consulted Heme for further studies on platelet [...] no insurance. Wanting to go home for [place]. Nurse repor ts that she has admitted [...] notes for assessment and pl an. Nuñez [place], Sub-Playground Worker Pgr: [phone] Rj, Ajay Barrett MD - 03/30/2012 11:39 PM [facility] Internal Medicine Attending Interval note - LATE [...] bridge after d/c until coumading therapeutic with morning caregiver through medication assistance program Hypoalbuminemia (03/14/2012) Assessment: [...] MD YOCASTA [facility] DEPARTMENT: [id number]- [facility] PPV Place of Service:- Inpatient Date of Service: 03/30/2012 CSN: [id number] Suggested Modifier: GC Resident Involved: Yes Suggested CPT: 23948- Subsequent, Detailed/high complex, 35 min Debi Yepez [...] follow closely Shaun SAEED GI Fellow Pg [phone] signed by Debi Oconnor MD at 03/30/2012 5:32 PM Jacoby Ko MD - 03/30/2012 10:25 AM PSTFormatting of this note might be different from the origi nal. [facility] DEPARTMENT OF SURGERY Daily Progress Note PROGRESS [...] concerns. Jacoby Tovar MD Surgery, R2 Diagnoses: [id number] Crohn disease This assessment and plan was [...] state: J Gastroenterol. 2004 Jan;39(10):948-54. PubMed PMID: [id number]. Consulted Heme for further studies on platelet [...] this note might be different from the [facility]. Transfer Accept Note Patient: Mackenzie Hartley Attending: [...] Nathan Weeks MD Internal Medicine PGY1 Pager [phone] Cecilia Baker MD - 03/29/2012 6:37 PM [...] team. Debi Oconnor MD GI Fellow Pager [phone] signed by Debi Oconnor MD at 03/29/2012 [...] planning) Debi Oconnor MD Fellow, Gastroenterology pager: [phone] signed by Debi Oconnor MD at 03/29/2012 [...] note for this encounter. OSBALDO GARCIA MD [facility] [address]A [address] [place] [address] Andrew Shah MD - 10:41 AM PST [facility] DEPARTMENT OF SURGERY Daily Progress Note PROGRESS NOTE: Attending Physician: Osbaldo Garcia MD 03/29/2012 Subjective/Overnight Events: - bowel prep initiated - Hct stable - no hematochezia or hemetemesis - MEDICATIONS: Reviewed in [facility] VITAL SIGNS: Refer to EPIC Intake/Output Summary [...] GI Jacoby Tovar MD Surgery, R2 Diagnoses: [id number] Crohn disease This assessment and plan was [...] myself provided conscious sedation. OSBALDO GARCIA MD [facility] [address] [place] [address] I spent 35 min in critical care (not including procedures) [facility] DEPARTMENT: MICU, [facility]- [id number] Place of Service: - Date of Service: 03/29/2012 CSN: [id number] Modifiers:GC Resident Involved: yes Suggested CPT: 85781 Critical Care, Initial 30-74 minutes Carlton Godwin DO - 6:06 AM PST MICU PROGRESS/TRANSFER NOTE Hospital Day:17 Author: CARLTON BETANCOURT DO Attending Physician: Osbaldo aGrcia MD Summary: Mackenzie Hartley is a 56 [...] day of transfer to MICU (1 05/29/11), [facility] informed us that according to the [...] 0659 03/29/12 07 - 03/30/12 0659 Shift 3032-2686 6790-1317 3681-3630 Daily Total 8158-5544 6370-3592 5313-9410 Daily Total I N T A K E P.O. 1750 2525 4275 I.V. 934 9038 151 4101 Shift Total 934 3740 3450 8124 O U T P U T Urine 1075 2950 1875 5900 Urine 1075 2950 1875 5900 Other 575 241 144 6974 Measured Stool Output 350 425 775 Stool/Urine Mix 575 575 Shift Total 1650 3300 2300 7250 NET -085 858 9140 874 Intake/Output Summary (since admission) at 03/12/12 1910 Last data filed at 03/29/12 0547 Gross for the last 17 days Intake 74716 ml Output 86821 ml Net since Admission -60604 ml Physical Exam: General Appearance: middle aged [...] Carlton Betancourt DO PGY-1 Internal Medicine Pager [phone] Debi Yepez MD - 03/11 4:31 PM [...] questions. Debi Oconnor MD GI/Hepatology Fellow Pager: [phone] INTERVAL HISTORY: Episode of melena last night then bright red blood per rectum this morning Hemodynamically stable but decrease in hct from 30 to 24 Transferred to [facility] INPATIENT MEDICATIONS acetaminophen (aka TYLENOL) tablet 650 [...] patient in the past. OSBALDO GARCIA MD [facility] [address] 8c/mpm8tnkm [place] [address] I spent 35 min in critical care (not including procedures) EPIC DEPARTMENT: [facility]- [id number] Place of Service: Date of Service: 03/28/2012 CSN: [id number] Modifiers:GC Resident Involved: yes Suggested CPT: 49286 Critical Care, Initial 30-74 minutes Carlton Godwin [...] 03/28/12 0659 03/28/12699 - 03/29/12 0659 Shift 9533-1423 0760-1515 9658-0450 Daily Total 7719-5366 8864-7271 5584-6588 Daily Total I N T A K E P.O. 240 300 540 I.V. 404 404 934 934 Blood 1300 1300 Shift Total 157 115 8014 2244 934 934 O U T P [...] Gross for the last 16 days Intake 48118 ml Output 57752 ml Net since Admission -57329 ml Physical Exam: General Appearance: tearful middle [...] Carlton Betancourt DO PGY-1 Internal Medicine Pager [phone] Andrew Shah MD - 6:52 AM PST [...] Sukumar Zuniga DO Internal Medicine PGY-2 Pg [phone] Davonte De La Rosa MD - 03/27/2012 [...] noted any additions above. KIRITYann RUST MD [facility] DEPARTMENT: [id number]- [facility] PPV Place of Service:- Inpatient Date of Service: 03/27/2012 CSN: [id number] Suggested Modifier: Resident Involved: Yes Suggested CPT: 82880- Subsequent, Detailed/high complex, 35 min Marely Mccann [...] was discussed and formulated with gastroenterology at [facility], Dr. Hennessy. Please call with any questions. Debi Oconnor MD GI/Hepatology Fellow Pager: [phone] INTERVAL HISTORY: Imaging reviewed with radiology; too [...] Dung Victor - 2 11:30 AM PST BAG MAKER NOTE: Visited with Patient. 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 Winding Lathe Operator team will follow as needed. Chaplain Dung Riley M.Div., [facility] [phone] Pager #[phone]; #[phone] Xin De La Rosa MD - 7:31 [...] J Gastroenterol. 2004 Jan;39(10):948-54. PubMed PMID: [id number]. Consulted Heme for further studies on platelet [...] an. 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 Raphael Norman MD Internal Medicine, PGY-2 [phone] Xin De La Rosa MD - 03/25/2012 [...] persists - not larger Resident spoke with client services vice president who spoke with staff - they did [...] taking more PO if still low ask insurance representative to see Hypophosphatemia (03/14/2012) Assessment: rechecked and [...] MD YOCASTA [facility] DEPARTMENT: [id number]- [facility] PPV Place of Service:- Inpatient Date of Service: 03/25/2012 CSN: [id number] Suggested Modifier: Resident Involved: Yes Suggested CPT: 59967- Subsequent, Detailed/high complex, 35 min oaquin Rivera [...] J Gastroenterol. 2004 Jan;39(10):948- 54. PubMed PMID: [id number]. Consulted [facility] for further studies on platelet [...] an. ---- Joaquin Rivera, VIVIANA Pager # [phone] Ajay De La Rosa MD - 03/24/2012 [...] drainage of abscess and coordination of care [facility] radiology reviewing perirectal abscess imaging, options [...] MD YOCASTA [facility] DEPARTMENT: [id number]- [facility] PPV Place of Service:- Inpatient Date of Service: 03/24/2012 CSN: [id number] Suggested Modifier: Resident Involved: Yes Suggested CPT: 03688- Subsequent, Detailed/high complex, 35 min Davonte DeL a Rosa MD - 03/24/2012 8:19 AM PSTI [...] J Gastroenterol. 2004 Jan;39(10):948- 54. PubMed PMID: [id number]. Consulted Heme for further studies on platelet [...] an. ---- Joaquin Nicole, MS4 Pager # [phone] Ajay De La Rosa MD - 03/23/2012 [...] MD YOCASTA [facility] DEPARTMENT: [id number]- [facility] PPV Place of Service:- Inpatient Date of Service: 03/23/2012 CSN: [id number] Suggested Modifier: GC Resident Involved: Yes Suggested CPT: 06980- Subsequent, Detailed/high complex, 35 min Davonte De [...] to be done today JERI DIAZ MD [facility] [address] [place] [address] Xin De La Rosa MD - 03/23/2012 [...] state: J Gastroenterol. 2004 Jan;39(10):948-54. PubMed PMID: [id number]. Consulted Heme for further studies on platelet [...] an. ---- Joaquin Rivera, VIVIANA Pager # [phone] Ajay De La Rosa MD - 03/22/2012 [...] noted any additions above. KIRITYann RUST MD [facility] DEPARTMENT: [id number]- [facility] PPV Place of Service:- Inpatient Date of Service: 03/22/2012 CSN: [id number] Suggested Modifier: Resident Involved: Yes Suggested CPT: 48806- Subsequent, Detailed/high complex, 35 min ox, Jeri [...] carotid duplex ordered today JERI DIAZ MD [facility] [address]A [address] [place], [place] [address] Xin De La Rosa MD - 03/22/2012 [...] PTT in mixing 1:1 Neg cardiolipin, neg eifh-R-rbsvfvhofmkj Legionella Agg Urine pending Cultures: BLOOD CULTURE [...] barber: J Gastroenterol. 2004 Jan;39(10):948-54. PubMed PMID: [id number]. - Consult Heme for further studies on [...] an. ---- Joaquin Rivera, MS4 Pager # [phone] Ajay De La Rosa MD - 03/21/2012 [...] with pharmD. [facility] DEPARTMENT: [id number]- [facility] PPV Place of Service:- Inpatient Date of Service: 03/21/2012 CSN: [id number] Suggested Modifier: GC Resident Involved: Yes Suggested CPT: 82861- Subsequent, Detailed/high complex, 35 min Jennifer Tolentino [...] y.o. Female with multiple complex medical problems; [facility] Vascular Surge ry consulted due to Right [...] as new baseline Ok to discharge per [facility] Vascular Surgeons once ambulating and medical issues are stable. Will continue to follow while in patient. [facility] Vascular Surgery Clinic, [address], phone number [phone] Please schedule followup appointment within 2-3 weeks of surgery for wound check. Dr. Sukumar Salgado, [facility] Vascular Surgery Attending. MERT OLIVA [facility] VASCULAR SURGERY [facility], [place] [id number] haMoses hill MD - 03/21/2012 6:55 AM [...] w ill need to establish care with wire twisting machine operator so that further treatment options can be [...] assessment and plan. Moses Anthony MD Neurology Playground Worker Pager [phone] oaquin Rivera - 02/2012 6:55 AM PST [...] an. ---- Joaquin Goodwinidad, MS4 Pager # [phone] Xin De La Rosa M D - 03/20/2012 11:09 PM [facility] Internal Medicine Attending Interval note Hospital day: [...] noted any additions above. KIRITYann RUST MD [facility] DEPARTMENT: [id number]- [facility] PPV Place of Service:- Inpatient Date of Service: 03/20/2012 CSN: [id number] Suggested Modifier: GC Resident Involved: Yes Suggested CPT: 01513- Subsequent, Detailed/high complex, 35 min oeller, Jennifer Hill [facility] - 03/20/2012 3:36 PM PST . Vascular [...] y.o. Female with multiple complex medical problems; [facility] Vascular Surge ry consulted due to Right [...] new blood-flow baseline Ok to discharge per [facility] Vascular Surgeons once ambulating and medical issues are stable. Will continue to follow while in patient. [facility] Vascular Surgery Clinic, [address], phone number [phone] Please schedule followup appointment within 2-3 weeks of surgery for wound check. Dr. Sukumar Salgado, [facility] Vascular Surgery Attending. MERT OLIVA [facility] VASCULAR SURGERY [address] [place] [facility] [place] [address] icci, Raphael Saab MD - 03/20/2012 7:58 [...] plan. Raphael Norman MD Internal Medicine, PGY-2 [id number] oaquin Rivera - 7:58 AM PST Medicine [...] an. ---- Joaquin Rivera, MS4 Pager # [phone] atson, Juma Ferrer MD - 03/19/2012 3:35 [...] mg, 7.5-15 mg, Oral, Q6H PRN, Moses Asehr MD potassium chloride (aka KLOR-CON) packet 20 [...] record is Dr. Salgado. JUMA CARRINGTON MD [facility] [address] [place] [address] Chary Moore M D - 03/19/2012 9:14 [...] note from 03/14 for details. Therefore the gyny-tyhl-ifpxw plan givens s been to allow her [...] plan. Lovenox bridge to be covered by [facility]. 9) Occlusive thrombus 10) Hypoalbuminemia 11) Hypophosphatemia 12) TIA (transient ischemic attack) - with PFO 13) PFO (patent foramen ovale) - plan is for lifelong coumadin. No additional benefit from device closure per CLOSURE I trial. Chary Doherty MD Chief Resident, Internal Medicine Pager: [phone] [facility] DEPARTMENT: Hosp- [id number] Place of Service: - Date of Service: 03/19/2012 CSN: [id number] Modifiers:GC Resident Involved: Yes Suggested CPT: 41001 Subsequent Visit Detailed/High complexity 35 min I [...] will need to establish c are with wire twisting machine operator so that further treatment options can be [...] assessment and plan. Moses Anthony MD Neurology Playground Worker Pager [phone] tJose Antonio prado MD - 03/18/2012 1:01 [...] outpt GI, plans to establish care in [place], perhaps Dr. Harri. Transitioning to PO meds, [...] Doherty MD Chief Resident, Internal Medicine Pager: [phone] [facility] DEPARTMENT: Hosp- [id number] Place of Service: - Date of Service: 03/18/2012 CSN: [id number] Modifiers:AKHIL Resident Involved: Yes Suggested CPT: 11593 Subsequent Visit Exp Prob Foc/Mod Complexity 25 [...] Date 03/18/12 07 - 03/19/12 0659 Shift 1516-0446 3564-8818 1572-5454 24 Hour Total I N T A K E P.O. 620 620 I.V. 20 20 40 Shift Total 640 20 660 O U T P U T Urine 675 100 775 Other 400 400 Shift Total 796 813 3841 Weight (kg) 74.1 74.1 74.1 74.1 General: [...] refusing). Will need to establish care with wire twisting machine operator so that further treatment options can be [...] in MS4 note. Moses Anthony MD Neurology Playground Worker Pager [phone] signed by Moses Asher MD at 03/18/2012 [...] an. ---- Nuñez Nicole, MS4 Pager # [phone] Chary Moore MD - 03/17/2012 8:39 PM [...] refusing). Will need to establish care with wire twisting machine operator so this can be discussed as outpt [...] Doherty MD Chief Resident, Internal Medicine Pager: [phone] [facility] DEPARTMENT: Hosp- [id number] Place of Service: - Date of Service: 03/17/2012 CSN: [id number] Modifiers: Resident Involved: Yes Suggested CPT: 86426 Subsequent Visit Detailed/High complexity 35 min I [...] at end of case. MIRELA SALGADO MD [facility] [address] [address] [place] [address] ham, Gloria Lawson MD - 1 05/18/2011 [...] until she's therapeutic with her coumadin and [facility] has agreed to provide discounted [...] y Gloria Anthony MD Neurology PGY1 Pager: [phone] oaquin Rivera - 10/2011 7:19 AM PST Medicine Progress Note Refer to Attending and Resident Notes for Assessment and Plan Hospital Day # 5 Patient:Mackenzie Hartley, Attending: Chary Doherty MD Author:Joaquin Rivera MS4 ID:Mackeznie Hartley is a 56 y.o. female with [...] an. ---- Joaquin Rivera, MS4 Pager # [phone] Chary Moore MD - 03/16/2012 12:56 PM [...] Doherty MD Chief Resident, Internal Medicine Pager: [phone] [facility] DEPARTMENT: Hosp- [id number] Place of Service: Date of Service: 03/16/2012 CSN: [id number] Modifiers:GC Resident Involved: Yes Suggested CPT: 82761 Subsequent Visit Exp Prob Foc/Mod Complexity 25 min and 23520 Subseque nt Visit Detailed/High complexity 35 min [...] for embolectomy - NPO p MN Sandoval aGlvez MD, R-4 Gloria Tucker MD - 03/16/2012 [...] DNR/DNI Gloria Anthony MD Neurology PGY-1 Pager [phone] The patient was seen and discussed with [...] Doherty MD Chief Resident, Internal Medicine Pager: [phone] [facility] DEPARTMENT: Hosp- [id number] Place of Service: - Date of Service: 03/15/2012 CSN: [id number] Modifiers:GC Resident Involved: Yes Suggested CPT: 26705 Subsequent Visit Detailed/High complexity 35 min Henrique [...] plan. Dariela Santoyo MD Internal Medicine PGY-3 [id number] aryl Arteaga MD - 08/2011 7:18 PM PSTHematology Attending Consult Note: I saw and examined Ms. Hartley with the Hematology Fellow, Dr. Anthony Camejo and [facility] [place] the 5A Medicine unit. I participated in the gunter components of today's [facility] pital visit including review of the history, [...] Hematology Oncology [facility] DEPARTMENT: [id number]- HEM FACULTY [facility] Place of Service: - Inpatient Date of Service: 03/15/2012 Modifiers: GC - Resident Involved Suggested CPT: 89255 - Subsequent, Detailed/High complex 35 min Anthony [...] anticoagulation clinic f/u closely; our clinic at [facility] cannot provide any suppli es -anticoagulation with [...] as above. MD Hematology/Oncology Fellow Pager # [phone] signed by Daryl Arteaga MD at 03/15/2012 [...] with any questions. Bigg Robles, R1 Pager: [phone] INTERVAL HISTORY: - NAEO - VSS, AF [...] wishes to pro ceed. Mirela Samano M.D. [facility] Vascular Surgery [address] [place] [address] Email: [email or web address] rlamin, Sandoval Barrett MD - 03/15/2012 9:30 [...] off to day. Jacoby Tovar MD Surgery [id number] signed by Sandoval Tovar MD at 03/15/2012 [...] monitor Gloria Anthony MD Neurology PGY1 Pager [phone] Daryl Singleton MD - 07/2011 4:57 PM PSTHematology Attending Consult Note: I saw and examined Ms. Hartley with the Hematology Fellow, Dr. Anthony Camejo in the [address] [place] [address] unit. I participated in the gunter components [...] Hematology Oncology [facility] DEPARTMENT: [id number]- HEM FACULTY [facility] Place of Service: - Inpatient Date of Service: 03/14/2012 Modifiers: GC - Resident Involved Suggested CPT: 86934 - Subsequent, Detailed/High complex 35 min Anthony [...] as above. MD Hematology/Oncology Fellow Pager # [phone] signed by Daryl Arteaga MD at 03/14/2012 [...] really for treatment Recommendations communicated with 3 regulatory internship. We will continue to follow. This plan was discussed and formulated with gastroenterology at [facility], Dr. Casiano. Please call with any questions. Bigg Margaret, R1 Pager: [phone] Attending Attestation: I personally interviewed the patient, performed the relevant elements of the [facility], and formulated the assessment and [...] She may follow-up wit h her local wire twisting machine operator or may follow up with me at [facility] if she wishes to consider di fferent evaluation or treatment. Gopal Casiano MD Inspector Wreathchair car driver Department of Gastroenterology INTERVAL HISTORY: - NAEO [...] IMAGING Reviewed outside imaging with radiologist at [facility] and CT abd and pelvis shows 2 [...] Intake/Output Summary (Last 24 hours) at 03/14/12 0936 Last data filed at 03/14/12 0501 Gross [...] Becca Moncada MD General Surgery, R2 Pager: [phone] [facility] Staff I saw and evaluated the patient. I agree with the findings and the plan of care as jannie hair in the resident s note. Left foot warm and well perfused. Patient pain-free. Will repe at [facility] to see if there has been any thrombus progression. No urgent need for surgery on left leg at this point. Mirela Samano M.D. [facility] Vascular Surgery [address] [place] [address], [address] [address] Email: [email or web address] oody, Irene Vega MD - 03/14/2012 3:52 [...] she remained hemodynamically stable. Transferre d to [facility] for possible thrombectomy, initiated heparin therapy, and [...] were obscured by overlying bowel gas. The epo-wl-gguydz left external iliac arteries appear patent with [...] transient arterial occlusion. Reported CT findings at [facility] are also concerning for diffuse intra-abdominal [...] CARLOS A SALCIDO MD R2, General Surgery [facility] 03/13/2012 1:20 PM Current Facility-Administered [...] LastCBG Intervention: Notified MD (Comment);Medication given (03/12/12 0936) CBC with diff last 72 hours (or [...] Becca Moncada MD General Surgery, R2 Pager: [phone] Vascular Staff I saw and evaluated the [...] at a later time. Mirela Samano M.D. [facility] Vascular Surgery [address] [facility], [address] [address] Email: [email or web address] Richie Goodman MD - 06/2011 11:15 AM PSTI was present and rounded with the METAL POLISHER AND BUFFER APPRENTICE today. I interviewed and examined the patient. I reviewed the history, as documented today. I agree with the METAL POLISHER AND BUFFER APPRENTICE's assessmen t and plan. Pt is stable [...] visceral and aortic thrombus transfer red from [place] last night with concerns for ischemic bowel. [...] and celiac arteries who was transferred to [facility] for management o f vascular disease and possible bowel ischemia. No evidence of bowel ischemia, bowel thicken ing likely Crohn's flare. 1. Crohn's flare: GI consult. Consider transfer to medicine for crohn's management with va alular following 2. Multivessel occlusions/thrombii: vascular surgery following. [...] general medicine service. Jf Wiseman MD FACS follow up manager Division of Trauma, Critical Care, and Acute Care Surgery [id number] documented in this e ncounter Plan of [...] | + + + + + | [facility] | [address] | [place] [address] | | | JANELL SHARP | BERTRAM [...] [facility] | [address] | [place] [address] | | | SERVICES, CORE | PARK [...] | + + + + + | [facility] | [address] [facility] | [place] [address] | | | SERVICES, JANELL | BERTRAM [...] [facility] | [address] | [place] [address] | | | SERVICES, CORE | PARK [...] | + + + + + | [facility] | [address] | [place] [address] | | | SERVICES, CORE | BERTRAM [...] | + + + + + | [facility] | [address] | [place] [address] | | | SERVICES, CORE | PARK [...] | + + + + + | [facility] | [address] | [place] [address] | | | SERVICES, CORE | PARK [...] [facility] | [address] | [place] [address] | | | SERVICES, CORE | PARK [...] [facility] | [address] | [place] [address] | | | SERVICES, CORE | PARK [...] [facility] | [address] | [place] [address] | | | SERVICES, CORE | PARK [...] [facility] | [address] | [place] [address] | | | SERVICES, CORE | PARK [...] | + + + + + | [facility] | [address] [facility] | [place] [address] | | | SERVICES, CORE | BERTRAM [...] | + + + + + | [facility] | [address] | [place] [address] | | | JANELL SHARP | BERTRAM [...] + | [facility] | [address] | [place] [address] | | | [place] | | | [...] + | [facility] | [address] | [place] [address] | | | [place] | | | [...] + | [facility] | [address] | [place] [address] | | | [place] | | | | + + + [...] | + + + + + | [facility] | [address] | [place] [address] | | | SERVICES, CORE | BERTRAM [...] [facility] | [address] | [place] [address] | | | SERVICES, CORE | PARK [...] | + + + + + | [facility] | [address] | [place] [address] | | | SERVICES, JANELL | BERTRAM [...] | + + + + + | [facility] | [address] | [place] [address] | | | SERVICES, CORE | BERTRAM [...] + + + | [facility] | [address] | [place] [address] | | | PATHOLOGY | [address] [...] | + + + + + | [facility] | [address] | [place] [address] | | | SERVICES, CORE | BERTRAM [...] | + + + + + | [facility] | [address] | [place] [address] | | | SERVICES, CORE | BERTRAM [...] [facility] | [address] | [place], [place] | | | [facility] | [address] | [address] | | | TESTS | | | [...] LABORATORY | [address] | [place] [address] | | | SERVICES, CORE | BERTRAM [...] [facility] | [address] | [place] [address] | | | SERVICES, CORE | PARK [...] | + + + + + | [facility] | [address] | [place] [address] | | | SERVICES, CORE | PARK [...] [facility] | [address] | [place], [place] | | | [facility] | [address] | [address] | | | TESTS | | | [...] [facility] | [address] | [place] [address] | | | SERVICES, CORE | BERTRAM [...] [facility] | [address] | [place] [address] | | | SERVICES, CORE | BERTRAM [...] [facility] | [address] | [place] [address] | | | SERVICES, CORE | BERTRAM [...] [facility] | [address] | [place] [address] | | | SERVICES, CORE | [address] | | | + + + + + X-RAY PORTABLE CHEST 1 VIEW (03/28/2012 6:28 AM PST) + + + + + + | Component | Value | Ref Range | Performed | Pathologist | | | | | At | Signature | + + + + + + | X-RAY | STUDY: [place] CHEST 1 VIEW | | | | [...] + + + + | PRODUCT | [id number] | | [facility] | | | UNIT [...] + + + + | BLOOD | [id number] | | [facility] | | | PRODUCT [...] + + + | [facility] | [address] | [place] [address] | | | PATHOLOGY | [address] [...] + + + + | PRODUCT | [id number] | | [facility] | | | UNIT [...] + + + + | BLOOD | [id number] | | [facility] | | | PRODUCT [...] + + + | [facility] | [address] | [place] [address] | | | PATHOLOGY | [address] [...] (H) | 60 - 99 mg/dL | [facility] - | | | GLUCOSE, | | [...] [facility] | [address] | [place], [place] | | | [facility] | [address] | [address] | | | TESTS | | | [...] [facility] | [address] | [place] [address] | | | SERVICES, CORE | BERTRAM [...] view image for the detailed interpretation from [employer]. | CARDIOLOGY | + + + + + + + + | Performing | Address | City/State/Zipcode | Phone Number | | Organization | | | | + + + + + | [facility] | [address] | [place], [place] | | | CARDIOLOGY | [address] | [address] | | + + + + + [...] | + + + + + | [facility] | [address] | [place] [address] | | | SERVICES, CORE | BERTRAM [...] + + + + | PRODUCT | [id number] | | [facility] | | | UNIT [...] + + + + | BLOOD | [id number] | | [facility] | | | PRODUCT [...] DEPARTMENT OF | [address] | [place] [address] | | | PATHOLOGY | [address] [...] + + + + | PRODUCT | [id number] | | [facility] | | | UNIT [...] + + + + | BLOOD | 13942 | | [facility] | | | PRODUCT [...] + + + | [facility] | [address] | [place] [address] | | | PATHOLOGY | [address] [...] [facility] | [address] | [place] [address] | | | SERVICES, CORE | BERTRAM [...] [facility] | [address] | [place] [address] | | | SERVICES, CORE | PARK [...] [facility] | [address] | [place] [address] | | | SERVICES, CORE | PARK [...] | + + + + + | [facility] | [address] | [place] [address] | | | SERVICES, CORE | PARK [...] [facility] | [address] | [place] [address] | | | SERVICES, | [address] [...] | + + + + + | [facility] | [address] | [place] [address] | | | SERVICES, | [address] [...] + + + + | PRODUCT | [id number] | | [facility] | | | UNIT [...] + + + + | BLOOD | 96719 | | [facility] | | | PRODUCT [...] DEPARTMENT OF | [address] | [place] [address] | | | PATHOLOGY | [address] [...] + + + + | PRODUCT | [id number] | | [facility] | | | UNIT [...] + + + + | BLOOD | 91843 | | [facility] | | | PRODUCT [...] + + + | [facility] | [address] | [place] [address] | | | PATHOLOGY | [address] [...] | + + + + + | [facility] | [address] | [place] [address] | | | SERVICES, CORE | BERTRAM [...] | + + + + + | [facility] | [address] | [place] [address] | | | SERVICES, CORE | BERTRAM [...] | + + + + + | [facility] | [address] | [place] [address] | | | SERVICES, CORE | BERTRAM [...] (H) | 0.90 - 1.20 INR | [facility] | | | | | | [facility]ORAT[facility] [...] [facility] | [address] | [place] [address] | | | SERVICES, CORE | PARK [...] | + + + + + | [facility] | [address] | [place] [address] | | | SERVICES, CORE | BERTRAM [...] | + + + + + | [facility] | [address] | [place] [address] | | | SERVICES, CORE | BERTRAM [...] [facility] | [address] | [place] [address] | | | SERVICES, CORE | PARK [...] [facility] | [address] | [place] [address] | | | ARON, JANELL | BERTRAM [...] [facility] | [address] | [place] [address] | | | SERVICES, CORE | PARK [...] | + + + + + | [facility] | [address] | [place] [address] | | | ARON, JANELL | BERTRAM [...] | + + + + + | [facility] | [address] | [place] [address] | | | ARON, JANELL | BERTRAM [...] | + + + + + | [facility] | [address] | [place] [address] | | | SERVICES, CORE | BERTRAM [...] (H) | 0.90 - 1.20 INR | [facility] | | | | | | LABORATORY [...] | + + + + + | [facility] | [address] | [place] [address] | | | SERVICES, CORE | PARK [...] | + + + + + | [facility] | [address] | [place] [address] | | | SERVICES, CORE | BERTRAM [...] [facility] | [address] | [place] [address] | | | SERVICES, CORE | PARK [...] oral, | | | | | | [id number] hrs | | | | | | [...] | | + +---------+ + + | [facility] DEPARTMENT OF | | | | | [...] [facility] | [address] | [place] [address] | | | SERVICES, CORE | BERTRAM [...] [facility] | [address] | [place] [address] | | | SERVICES, CORE | PARK [...] | + + + + + | [facility] | [address] | [place] [address] | | | SERVICES, CORE | PARK [...] [facility] | [address] | [place] [address] | | | SERVICES, CORE [...] | + + + + + | [facility] | [address] | [place] [address] | | | SERVICES, CORE | BERTRAM [...] | | | | Final | | [place] | | | | CULTURE RESULT:< 10,000 [...] | + + + + + | [facility] | [address] | [place] [address] | | | [place] | | | [...] [facility] | [address] | [place] [address] | | | SERVICES, CORE | BERTRAM [...] | + + + + + | [facility] | [address] | [place] [address] | | | SERVICES, CORE | BERTRAM [...] | + + + + + | [facility] | [address] | [place] [address] | | | SERVICES, CORE | BERTRAM [...] | + + + + + | [facility] | [address] | [place] [address] | | | JANELL SHARP | BERTRAM [...] view image for the detailed interpretation from [employer] results. | CARDIOLOGY | + + + + + + + + | Performing | Address | City/State/Zipcode | Phone Number | | Organization | | | | + + + + + | [facility] | [address] | [place], [place] | | | CARDIOLOGY | [address] | [address] | | + + + + + [...] / | | | | | | aDvina Sheikh | | | | + + [...] | + + + + + | [facility] | [address] | [place] [address] | | | SERVICES, CORE | PARK [...] | + + + + + | [facility] | [address] | [place] [address] | | | SERVICES, CORE | PARK [...] | + + + + + | [facility] | [address] | [place] [address] | | | SERVICES, CORE | PARK [...] [facility] | [address] | [place] [address] | | | SERVICES, CORE | PARK [...] | | | | | | Jase,[facility] | | | | | | [place], [place] [address] | | | | | | [phone] | | | | | | Kaitlin [...] [facility] | [address] | [place], [place] | | | [facility] | | [address] | | + + + + + [...] [facility] | [address] | [place] [address] | | | SERVICES, JANELL | BERTRAM [...] | + + + + + | [facility] | [address] [facility] | [place] [address] | | | SERVICES, CORE | BERTRAM [...] | + + + + + | [facility] | [address] | [place] [address] | | | SERVICES, CORE | [address] | | | + + + + + 12 LEAD ECG (03/22/2012 2:58 PM PST) + + + + + + | Component | Value | Ref Range | Performed | Pathologist | | | | | At | Signature | + + + + + + | VENTRICULAR | 87 | BPM | [facility] | | | RATE | | [...] | | | | | XIN GARZON (5731) | | | | | | on 03/22/2012 4:25:06 PM | | | | + + + + + + + + | Specimen | + + | | + + + + + | Narrative | Performed At | + + + | Please click | [facility] | | on view image for the detailed interpretation from [employer] results. | CARDIOLOGY | + + + + + + + + | Performing | Address | City/State/Zipcode | Phone Number | | Organization | | | | + + + + + | [facility] | [address] | [place], [place] | | | CARDIOLOGY | [address] | [address] | | + + + + + [...] [facility] | [address] | [place], [place] | | | [facility] | [address] | [address] | | | TESTS | | | [...] [facility] | [address] | [place], [place] | | | HILL, POINT OF CARE | [address] | [address] | | | TESTS | | | [...] [facility] | [address] | [place] [id number] | | | SERVICES, CORE | BERTRAM [...] [facility] | [address] | [place] [address] | | | SERVICES, CORE | BERTRAM [...] [facility] | [address] | [place] [address] | | | SERVICES, CORE [...] [facility] | [address] | [place] [address] | | | SERVICES, CORE | BERTRAM [...] | + + + + + | [facility] | [address] | [place] [address] | | | SERVICES, CORE | BERTRAM [...] (H) | 60 - 99 mg/dL | [facility] - | | | GLUCOSE, | | [...] [facility] | [address] | [place], [place] | | | [facility] | [address] | [address] | | | TESTS | | | [...] | + + + + + | [facility] | [address] | [place] [address] | | | SERVICES, CORE | BERTRAM [...] (H) | 60 - 99 mg/dL | [facility] - | | | GLUCOSE, | | [...] [facility] | [address] | [place], [place] | | | [facility] | [facility] | [address] | | | TESTS | | | [...] view image for the detailed interpretation from [employer] results. | CARDIOLOGY | + + + + + + + + | Performing | Address | City/State/Zipcode | Phone Number | | Organization | | | | + + + + + | [facility] | [address] | [place], [place] | | | CARDIOLOGY | [address] | [address] | | + + + + + [...] [facility] | [address] | [place], [place] | | | [facility] | [address] | [address] | | | TESTS | | | [...] | + + + + + | [facility] | [address] | [place] [address] | | | SERVICES, CORE | BERTRAM [...] | + + + + + | [facility] | [address] | [place] [address] | | | SERVICES, CORE | BERTRAM [...] | + + + + + | [facility] | [address] | [place] [address] | | | SERVICES, CORE | BERTRAM [...] | + + + + + | [facility] | [address] | [place] [address] | | | SERVICES, JANELL | BERTRAM [...] | + + + + + | [facility] | [address] | [place] [address] | | | JANELL SHARP | BERTRAM [...] GARCIA | | | | | | (3024) on 03/22/2012 | | | | | | 12:47:28 PM | | | | + + + + + + + + | Specimen | + + | | + + + + + | Narrative | Performed At | + + + | Please click | [facility] | | on view image for the detailed interpretation from [employer] results. | CARDIOLOGY | + + + + + + + + | Performing | Address | City/State/Zipcode | Phone Number | | Organization | | | | + + + + + | [facility] | [address] [facility] | [place], [place] | | | CARDIOLOGY | [facility] | [address] | | + + + + + [...] | + + + + + | [facility] | [address] | [place] [address] | | | SERVICES, CORE | BERTRAM [...] | + + + + + | [facility] | [address] | [place] [address] | | | JANELL SHARP | BERTRAM [...] 98 | 60 - 99 mg/dL | [facility] | | | GLUCOSE, | | | [facility] | | | POC | | | [facility] | | | | | | OF [...] [facility] | [address] | [place], [place] | | | [facility]SCAR POINT OF CARE | [address] | [address] | | | TESTS | | | [...] view image for the detailed interpretation from [employer] results. | CARDIOLOGY | + + + + + + + + | Performing | Address | City/State/Zipcode | Phone Number | | Organization | | | | + + + + + | [facility] | [address] | [place], [place] | | | CARDIOLOGY | [address] | [address] | | + + + + + [...] [facility] | [address] | [place], [place] | | | [facility] | [address] | [address] | | | TESTS | | | [...] [facility] | [address] | [place], [place] | | | [facility] CARE | [address] | [address] | | | TESTS | | | | + + + + + X-RAY PORTABLE CHEST 1 VIEW (03/20/2012 10:13 AM PST) + + + + + + | Component | Value | Ref Range | Performed | Pathologist | | | | | At | Signature | + + + + + + | X-RAY | STUDY: [place] CHEST 1 VIEW | | | | [...] | + + + + + | [facility] | [address] | [place] [address] | | | SERVICES, JANELL | BERTRAM [...] + + | Performing | Address | City/State/[facility] | Phone Number | | Organization | | | | + + + + + | [facility] | [address] | [place] [address] | | | ARON, [facility] | [address] | | | + [...] | + + + + + | [facility] | [address] | [place] [address] | | | JANELL SHARP | BERTRAM [...] | + + + + + | [facility] | [address] | [place] [address] | | | SERVICES, CORE | BERTRAM [...] (H) | 60 - 99 mg/dL | [facility] | | | GLUCOSE, | | [...] + + + | [facility] | [address] | [place], [place] | | | [facility] | [address] | [address] | | | TESTS | | | [...] [facility] | [address] | [place], [place] | | | [facility] CARE | [address] | [address] | | | TESTS | | | [...] | + + + + + | [facility] | [address] | [place] [address] | | | SERVICES, JANELL | BERTRAM [...] | + + + + + | [facility] | [address] | [place] [address] | | | SERVICES, CORE | BERTRAM [...] (H) | 60 - 99 mg/dL | [facility] | | | GLUCOSE, | | [...] + + + | [facility] | [address] | [place], [place] | | | [facility] | [address] | [address] | | | TESTS | | | [...] view image for the detailed interpretation from [employer] results. | CARDIOLOGY | + + + + + + + + | Performing | Address | City/State/Zipcode | Phone Number | | Organization | | | | + + + + + | [facility] | [address] | [place], [place] | | | CARDIOLOGY | [address] | [address] | | + + + + + [...] [facility] | [address] | [place], [place] | | | [facility] | [address] | [address] | | | TESTS | | | [...] (H) | 60 - 99 mg/dL | [facility] | | | GLUCOSE, | | [...] [facility] | [address] | [place], [place] | | | [facility] | [address] | [address] | | | TESTS | | | [...] [facility] | [address] | [place] [address] | | | SERVICES, CORE | [address] [...] | + + + + + | [facility] | [address] | [place] [address] | | | SERVICES, CORE | PARK [...] | + + + + + | [facility] | [address] [facility] | [place] [address] | | | SERVICES, CORE | B[address]TRAM [...] | + + + + + | [facility] | [address] | [place] [address] | | | SERVICES, CORE | [address]TR[address] [...] + | [facility] | [address] | [place] [address] | | | [place] | | | [...] [facility] | [address] | [place] [address] | | | SERVICES, CORE | [address]ARK [...] [facility] | [address] | [place] [address] | | | SERVICES, CORE | [address] [...] [facility] | [address] | [place] [address] | | | ARON, JANELL | BERTRAM [...] | + + + + + | [facility] | [address] | [place] [address] | | | SERVICES, CORE | BERTRAM [...] | + + + + + | [facility] | [address] | [place] [address] | | | SERVICES, CORE | BERTRAM [...] (H) | 60 - 99 mg/dL | [facility] | | | GLUCOSE, | | [...] [facility] | [address] | [place], [place] | | | [facility] [place] | [address] | [address] | | | TESTS | | | [...] | + + + + + | [facility] | [address] | [place] [address] | | | SERVICES, JANELL | BERTRAM [...] - [facility] | [address] | [place], [place] | | | [facility] OF [facility] | [facility] | [address] | | | TESTS | | | [...] [facility] | [address] | [place] [address] | | | SERVICES, CORE | PARK [...] | + + + + + | [facility] | [address] | [place] [address] | | | SERVICES, CORE | BERTRAM [...] MARQUAM | [address] | [place], [place] | | | [facility] | [address] | [address] | | | TESTS | | | | + + + + + OPERATION RECORD (03/18/2012 11:22 AM PST) + + | Transcriptions | + + | Mirela Salgado MD - 03/18/2012 8:38 AM [facility] Date: 03/17/2012ttending | | Surgeon: Mirela Salgado M.D.Patrol Officer(s): Sandoval | | Bennett Galvez M.D.Preoperative [...] | | tolerated the procedure well.MIRELA SALGADO, [facility] Hospitalessor of SurgeryATRIUM HEALTH HARRIS[facility]G / [id number] / | | [id number] / [id number] / T: 03/17/2012 | |was no pulse. [...] | | | |MIRELA SALGADO MD | |nursing home manager | | | |GLM / HS | |[id number] / [id number] / [id number] / | | | | | + [...] [facility] | [address] | [place] [address] | | | SERVICES, CORE | PARK [...] [facility] | [address] | [place] [address] | | | SERVICES, CORE | PARK [...] | + + + + + | [facility] | [address] | [place] [address] | | | SERVICES, CORE | PARK [...] | + + + + + | [facility] | [address] | [place] [address] | | | SERVICES, CORE | BERTRAM [...] | + + + + + | [facility] | [address] | [place] [address] | | | SERVICES, CORE | BERTRAM [...] | + + + + + | [facility] | [address] [facility] | [place] [address] | | | SERVICES, JANELL | BERTRAM [...] | + + + + + | [facility] | [address] | [place] [address] | | | SERVICES, JANELL | PARK [...] DAVIDAM | [address] | [place], [place] | | | [facility] | [facility] | [address] | | | TESTS | | | [...] (H) | 60 - 99 mg/dL | [facility] | | | GLUCOSE, | | [...] MARILYN | [address] | [place], [place] | | | [facility] | [address] | [address] | | | TESTS | | | [...] SANDERS | [address] | [place], [place] | | | [facility] | [facility] | [address] | | | TESTS | | | [...] | + + + + + | [facility] | [address] | [place] [address] | | | SERVICES, CORE | PARK [...] + + | Performing | Address | City/State/[facility] | Phone Number | | Organization | | | | + + + + + | [facility] | [address] | [place] [address] | | | JANELL SHARP | PARK [...] | + + + + + | [facility] | [address] | [place] [address] | | | JANELL SHARP | BERTRAM [...] | + + + + + | [facility] | [address] | [place] [address] | | | SERVICES, CORE | BERTRAM [...] (H) | 60 - 99 mg/dL | [facility] | | | GLUCOSE, | | [...] SANDERS | [address] | [place], [place] | | | [facility] | [address] | [address] | | | TESTS | | | [...] [facility] | [address] | [place] [address] | | | SERVICES, | [address] [...] [facility] | [address] | [place] [address] | | | SERVICES, | [address] [...] | + + + + + | [facility] | [address] | [place] [address] | | | SERVICES, CORE | BERTRAM [...] MARQUAM | [address] | [place], [place] | | | PEPE MOORE OF CARE | [address] | [address] | | | TESTS | | | [...] | | + +---------+ + + | [facility] | | | | | [...] SANDERS | [address] | [place], [place] | | | PE[facility] MOORE [facility] [place]O | [address] | [address] | | | TESTS | | | [...] MARQUAM | [address] | [place], [place] | | | OSCAR POINT OF CARE | [address] | [address] | | | TESTS | | | [...] | + + + + + | [facility] | [address] | [place] [address] | | | JANELL SHARP | BERTRAM [...] (H) | 60 - 99 mg/dL | [facility] | | | GLUCOSE, | | [...] MARILYN | [address] | [place], [place] | | | [facility] CARE | [address] | [address] | | | TESTS | | | [...] | + + + + + | [facility] | [address] | [place] [address] | | | SERVICES, CORE | PARK [...] | + + + + + | [employer] [employer] | [address] | [place] [address] | | | SERVICES, CORE | BERTRAM [...] | + + + + + | [facility] | [address] | [place] [address] | | | SERVICES, CORE | PARK [...] [facility] | [address] | [place] [address] | | | SERVICES, CORE | PARK [...] - [facility] | [address] | [place], [place] | | | PEPE MOORE [facility] CARE | [address] | [address] | | | TESTS | | | [...] SANDERS | [address] | [place], [place] | | | [facility] [place] | [address] | [address] | | | TESTS | | | [...] | | | | | | the [employer] system. | | | | | | [...] | | + +---------+ + + | [facility] | | | | | [...] Kirstie | | | | | | Duarte | | | | + + + [...] SANDERS | [address] | [place], [place] | | | [facility] [place] | [address] | [address] | | | TESTS | | | [...] MARQUAM | [address] | [place], [place] | | | [facility] [place] | [address] | [address] | | | TESTS | | | [...] [facility] | [address] | [place] [address] | | | SERVICES, SPECIAL | PARK [...] [facility] | [address] | [place] [address] | | | SERVICES, SPECIAL | PARK [...] | + + + + + | [facility] | [address] | [place] [address] | | | SERVICES, SPECIAL | BERTRAM [...] [facility] | [address] | [place] [address] | | | SERVICES, SPECIAL | PARK [...] [facility] | [address] | [place] [address] | | | SERVICES, CORE | PARK [...] [facility] | [address] | [place] [address] | | | SERVICES, CORE | PARK [...] | + + + + + | [facility] | [address] | [place] [address] | | | SERVICES, CORE | PARK [...] [facility] | [address] | [place] [address] | | | JANELL SHARP | BERTRAM [...] MARILYN | [address] | [place], [place] | | | [facility] | [facility] | [address] | | | TESTS | | | [...] | + + + + + | [facility] | [address] | [place] [address] | | | JANELL SHARP | BERTRAM [...] (H) | 60 - 99 mg/dL | [facility] | | | GLUCOSE, | | [...] MARQUAM | [address] | [place], [place] | | | [facility] [place] | [facility] | [address] | | | TESTS | | | [...] SANDERS | [address] | [place], [place] | | | OSCAR POINT OF CARE | [address] | [address] | | | TESTS | | | [...] | | + +---------+ + + | [facility] | | | | | [...] SANDERS | [address] | [place], [place] | | | PEPE MOORE [facility] CARE | [address] | [address] | | | TESTS | | | [...] + + + + | PRODUCT | [id number] | | [facility] | | | UNIT [...] + + + + | BLOOD | [id number] | | [facility] | | | PRODUCT [...] DEPARTMENT OF | [address] | [place] [address] | | | PATHOLOGY | [address] [...] + + + + | PRODUCT | [id number] | | [facility] | | | UNIT [...] + + + + | BLOOD | [id number] | | [facility] | | | PRODUCT [...] + + + | [facility] | [address] | [place] [address] | | | PATHOLOGY | [address] [...] | + + + + + | [facility] | [address] | [place] [address] | | | SERVICES, CORE | BERTRAM [...] MARQUAM | [address] | [place], [place] | | | OSCAR POINT OF CARE | [address] | [address] | | | TESTS | | | [...] - MARILYN | [address] | [place], [place] | | | [facility] | [address] | [address] | | | TESTS | | | [...] [facility] | [address] | [place] [address] | | | ARON, JANELL | PARK [...] [facility] | [address] | [place] [address] | | | SERVICES, CORE | PARK [...] | + + + + + | [facility] | [address] [facility] | [place] [address] | | | ARON, CORE | PARK [...] | | If supplementation does | | [place] | | | | not correct consider [...] if | | | | | | [id number] >400: | | | | | | [...] + | [facility] | [address] | [place] [address] | | | [place] | | | | + + + [...] [facility] | [address] | [place] [address] | | | SERVICES, CORE | BERTRAM [...] | + + + + + | [facility] | [address] [facility] | [place] [address] | | | SERVICES, CORE | BERTRAM [...] | + + + + + | [facility] | [address] | [place] [address] | | | ARON, JANELL | BERTRAM [...] - | | | | | | [place] | | + + + + + + + + | Specimen | + + | Blood - Blood | + + + + + + + | Performing | Address | City/State/Zipcode | Phone Number | | Organization | | | | + + + + + | [facility] | [address] | [place] [address] | | | [place] | | | [...] SANDERS | [address] | [place], [place] | | | [facility] | [facility] | [address] | | | TESTS | | | [...] | + + + + + | [facility] | [address] | [place] [address] | | | JANELL SHARP | BERTRAM [...] + + | [facility] | [address] [facility] | [place] [address] | | | JANELL SHARP | BERTRAM [...] [facility] | [address] | [place], [place] | | | OSCAR POINT OF CARE | [address] | [address] | | | TESTS | | | [...] | + + + + + | [facility] | [address] | [place] [address] | | | SERVICES, CORE | BERTRAM [...] gas. | | | | | | Xcevfa-kn-weitrv left | | | | | | [...] | | + +---------+ + + | [facility] | | | | | RADIOLOGY | | | | + +---------+ + + [facility] ARTER DUPLEX LOWER EXTREMITY BILATERAL COMPLETE [...] SANDERS | [address] | [place], [place] | | | OSCAR POINT OF CARE | [address] | [address] | | | TESTS | | | [...] % | [facility] | | | | [address] | | REG UN[facility] | | | | Jarett Card, [facility],[place] | | PTH - INT[facility] | | | | [address] | | | | | | [phone].[employer]. | | | | | | Kaitlin [...] [facility] | [address] | [place], [place] | | | UNIV PTH - INT[facility] | | [phone] | | + + + + + [...] [facility] | [address] | [place] [address] | | | SERVICES, CORE | BERTRAM [...] | + + + + + | [facility] | [address] | [place] [address] | | | SERVICES, CORE | PARK [...] (H) | 60 - 99 mg/dL | [facility] | | | GLUCOSE, | | [...] SANDERS | [address] | [place], [place] | | | OSCAR POINT OF CARE | [address] | [address] | | | TESTS | | | [...] | + + + + + | [facility] | [address] | [place] [address] | | | JANELL SHARP | BERTRAM [...] | + + + + + | [facility] | [address] | [place] [address] | | | JANELL SHARP | BERTRAM [...] (H) | 60 - 99 mg/dL | [facility] | | | GLUCOSE, | | [...] MARILYN | [address] | [place], [place] | | | PE[facility] CARE | [address] | [address] | | | TESTS | | | [...] [facility] | [address] | [place] [address] | | | SERVICES, CORE | PARK [...] [facility] | [address] | [place] [address] | | | SERVICES, CORE | PARK [...] [facility] | [address] | [place] [address] | | | SERVICES, CORE | PARK [...] | + + + + + | [facility] | [address] | [place] [address] | | | SERVICES, CORE | BERTRAM [...] [facility] | [address] | [place] [address] | | | SERVICES, CORE | PARK [...] | + + + + + | [facility] | [address] | [place] [address] | | | SERVICES, CORE | PARK [...] | | | | Final | | [facility] | | | | CULTURE RESULT:No growth [...] + | [facility] | [address] | [place] [address] | | | [place] | | | [...] | | | Final CULTURE | | [place] | | | | RESULT:Salmonella, | | [...] + | [facility] | [address] | [place] [address] | | | [place] | | | [...] | + + + + + | [facility] | [address] | [place] [address] | | | SERVICES, CORE | BERTRAM [...] (H) | 60 - 99 mg/dL | [facility] | | | GLUCOSE, | | [...] | [facility] | [address] | [place], [place] | | | PEPE MOORE OF CARE | [address] | [address] | | | TESTS | | | [...] view image for the detailed interpretation from [employer] results. | CARDIOLOGY | + + + + + + + + | Performing | Address | City/State/Zipcode | Phone Number | | Organization | | | | + + + + + | [facility] | [address] | [place], [place] | | | CARDIOLOGY | [address] | [address] | | + + + + + [...] [facility] | [address] | [place] [address] | | | SERVICES, CORE | [address] | | | + + + + + CULTURE, BLOOD BACTI & YEAST [facility] (03/12/2012 9:50 PM PST) + + + [...] | + + + + + | [facility] | [address] | [place] [address] | | | SERVICES, CORE | BERTRAM [...] [facility] | [address] | [place] [address] | | | SERVICES, CORE | PARK [...] [facility] | [address] | [place] [address] | | | ARON, JANELL | BERTRAM [...] SANDERS | [address] | [place], [place] | | | [facility] | [address] | [address] | | | TESTS | | | [...] [facility] | [address] | [place] [address] | | | SERVICES, CORE | BERTRAM [...] [facility] | [address] | [place] [address] | | | SERVICES, CORE | PARK [...] [facility] | [address] | [place] [address] | | | SERVICES, | [address] [...] | + + + + + | [facility] | [address] [facility] | [place] [address] | | | ARON, | BERTRAM GRANT [...] | + + + + + | [facility] | [address] | [place] [address] | | | SERVICES, JANELL | PARK [...] [facility] | [address] | [place] [address] | | | SERVICES, CORE | PARK [...] | + + + + + | [facility] | [address] | [place] [address] | | | SERVICES, JANELL | BERTRAM [...]
--- OUTSIDE RECORDS SUMMARY | ~2019-11-03 | XMS | Encounter Summary ---
Demographics + + + | Address | [address] | | | [place] [address] | + + + | Home Phone | | + + + | Preferred Language | Unknown | + + + | Marital Status | | + + + | Gnosticism Affiliation | Unknown | + + + | Race | Unknown | + + + | Ethnic Group | Unknown | + + + Author + + + | Author | [facility] | | | and [place] | + + + | Organization | [facility] | | | [...] Team Providers + +------+ + | Care Peer Educator Name | Role | Phone | [...] [address] | | | | | [place], [place] | [place] [address] | | | | | [phone] | [phone] | | | | | [phone] | | | +--------+ + + + [...]
--- OUTSIDE RECORDS SUMMARY | ~2019-11-03 | XMS | Encounter Summary ---
Demographics + + + | Address | [address] | | | [place] [address] | + + + | Home Phone | | + + + | Preferred Language | Unknown | + + + | Marital Status | | + + + | Restorationism Affiliation | Unknown | + + + | Race | Unknown | + + + | Ethnic Group | Unknown | + + + Author + + + | Author | [facility] | | | and [place] | + + + | Organization | [facility] | | [...] Providers + +------+ + | Care Manager Financial Name | Role | Phone | + +------+ + PCP | Unavailable | + +------+ + Encounter Details +--------+ + + + + | Date | Type | Department | Care Team | Description | +--------+ + + + + | 03/07/ | Hospital | [facility] | SahraCynthiaay Nena, | Rectovaginal | | 2017 - | Encounter | [facility] [address] | MD Gaby LOREDO | fistula; Crohn's | | | | [address] | [address] | disease of large | | 03/12/ | | [place], [place] | [place] [address] | intestine with | | 2017 | | [address] | [phone] | complication (HCC) | | | | [phone] | | | +--------+ + + + [...] original. Discharge Summaries by JENARO Mathew at 03/12/17 0746 Author: JENARO Mathew Service: General Surgery Author Type: Nurse Jennifer enciso Filed: 03/12/17 0751 Date of Service: 03/12/17 0746 Status: Signed Film Replacement Orderer: JENARO Mathew (Nurse Practitioner) [facility] Service: Colon & Rectal Surgery Discharge Summary Date of Admission: 03/07/2017 Date of Discharge: 03/12/17 Discharge Provider: JENARO MATHEW Treatment Team: Admitting Provider: Enrique Morris MD Discharge Diagnoses: Principal Problem: Rectovaginal fistula [...] Humirabeing seen by Dr. She CLAYTON in [place]. She previously underwent a small bowel resection [...] She wa s initially seen by Dr. Morris on 09/09/15 with a chief complaint of [...] She was then recommended to go [place] opin[place]. She never went to [place] due to the trip being a hardship [...] who underwent a open colostomy with Dr. Morris. Si nce surgery she has recovered slowly. She is tolerating a general diet without N/V. Her co lostomy is passing gas and stool. Oral pain medications are managing the patients pain. Sh e is ambulatory. Vitals and labs are [...] Procedure: ANAL FISTULA SETON PLACEMENT; Surgeon: Enrique Morris MD; Location: [facility] OR; Service: General; Laterality: N/A; APPENDECTOMY CHOLECYSTECTOMY COLOSTOMY N/A 03/07/2017 Procedure: COLOSTOMY; Surgeon: Enrique Morris MD; Location: [facility] OR; Service: G eneral; Laterality: N/A; ESOPHAGOGASTRODUODENOSCOPY Left 08/06/2015 Procedure: ESOPHAGOGASTRODUODENOSCOPY; Surgeon: Sheng Rios MD; Location: [facility] ENDOSCOPY; Service: Gastroenterology; Laterality: Left; ESOPHAGOGASTRODUODENOSCOPY N/A 04/21/2014 Procedure: ESOPHAGOGASTRODUODENOSCOPY; Surgeon: Bony Petty MD; Location: [facility] BEDSIDE PROCEDURE; Service: Gastroenterology; Laterality: N/A; HYSTERECTOMY LAPAROTOMY N/A 04/23/2014 Procedure: EXPLORATION - LAPAROTOMY; Surgeon: Bogdan Moser DO; Location: [facility] MAIN O R; Service: General; Laterality: N/A; LYSIS OF ADHESIONS PORTACATH PLACEMENT Left SMALL INTESTINE SURGERY SPLENECTOMY, TOTAL N/A 04/23/2014 Procedure: SPLENECTOMY; Surgeon: Bogdan Moser DO; Location: [facility] MAIN OR; Service: General; Laterality: N/A; TONSILLECTOMY [...] Change midline dressing and ostomy appliance with 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 Follow up: JENARO Mathew [address] [place] [id number] Schedule an appointment as soon as possible [...] Note by Catracho Almaguer RN at 03/12/17 141 Author: Catracho Almaguer RN Service: Wound/Ostomy Care Author Type: Registered Nurse Filed: 03/12/17 1422 Date of Service: 03/12/171414 Status: Signed Film Replacement Orderer: Catracho Almaguer RN (Registered Nurse) [facility] Service: Ostomy Care Consult Note Hospital Day: [...] 03/12/17637 Date of Service: 03/12/17637 Status: Signed Film Replacement Orderer: Lashawn Valdez RN (Registered Nurse) Dr mckeon in room to examine patient. onver roshan Transaction, Provider Unknown - 03/12/2017 6:19 AM PST Progress Notes by Lashawn Valdez RN at 03/12/17618 Author: Lashawn Valdez RN Service: (none) Author Type: Registered Nurse Filed: 03/12/17625 Date of Service: 03/12/17618 Status: Signed Film Replacement Orderer: Lashawn Valdez RN (Registered Nurse) Patient is complaining of anxiety and requesting ativan 2mg be given through her IV. Dr. Gio esteban notified to request . Also notified that patient became disoriented after receiving ativ an last night. Dr. Mckeon also notified that patient has required oxygen at 2L to maintain sa ts at 90-92%. onver roshan Transaction, Provider Unknown - 03/11/2017 4:31 PM PST Nurse Progress Note by Catracho Almaguer RN at 03/11/17 1631 Author: Catracho Almaguer RN Service: Wound/Ostomy Care Author Type: Registered Nurse Filed: 03/11/17 1635 Date of Service: 03/11/17 163 Status: Signed Film Replacement Orderer: Catracho Almaguer RN (Registered Nurse) [facility] Service: Ostomy Care Consult Note Hospital Day: [...] questions. Catracho Almaguer RN 03/11/2017 onver roshan Transaction, Provider Unknown - 03/11/2017 2:50 PM PST Progress Notes by Brooke Hawkins RD at 03/11/17 4398 Author: Brooke Hawkins RD Service: (none) Author Type: Registered Dietitian Filed: 03/11/17 0853 Date of Service: 03/11/171449 Status: Signed Film Replacement Orderer: Brooke Hawkins RD (Registered Dietitian) 03/11/17 1414 Subjective Timepoint Follow up Pt c/o In [...] 03/11/2017 1:06 PM PST Case Management by Maryellen Salter RN at 03/11/17 1306 Author: Maryellen Salter RN Service: (none) Author Type: Registered Nurse Filed: 03/11/17 1312 Date of Service: 03/11/17 1306 Status: Signed Film Replacement Orderer: Maryellen Salter RN (Registered Nurse) Discharge plan- patient will be able to return home with family when medically ready. SAL bennett de an ostomy appt for her on 03/16/17 at 0915. Information added to AVS. MARYELLEN SALTER RN Case Management [phone] onver roshan Transaction, Provider Unknown - 03/11/2017 12:28 PM PST Therapy Progress Note by Moses Pathak PTA at 03/11/17 1228 Author: Moses Pathak PTA Service: (none) Author Type: Correctional Supply Supervisor Filed: 03/11/17 1232 Date of Service: 03/11/17 1228 Status: Signed Film Replacement Orderer: Moses Pathak PTA (Correctional Supply Supervisor) 03/11/17 1228 PT Last Visit PT Received [...] Response to Education: stated understanding onver roshan Transaction, Provider Unknown - 03/11/2017 11:27 AM PST Progress Notes by Dorina Jang at 03/11/17 1127 Author: Dorina Jang Service: (none) Author Type: Filed: 03/11/17 1136 Date of Service: 03/11/17 1127 Status: Signed Film Replacement Orderer: Dorina Jang () Referral from RN to assess for emotional/spiritual [...] ostomy bag was leaking. Plan: Let pm know and revisit her later today. Would benefit from suppo rt and a bit of reframing her life going forward. Chaplain Rogers BCC onver roshan Main, Provider Unknown - 03/11/2017 10:50 AM PST Nurse Progress Note by Catracho Almaguer RN at 03/11/17 1050 Author: Catracho Almaguer RN Service: Wound/Ostomy Care Author Type: Registered Nurse Filed: 03/11/17 1100 Date of Service: 03/11/17 1050 Status: Signed Film Replacement Orderer: Catracho Almaguer RN (Registered Nurse) Ostomy nurse [...] a good seal on her ostomy bag. ito, Don Brasher MD - 03/11/2017 9:45 AM PST Progress Notes by Don Nava MD at 03/11/17944 Author: Don Nava MD Service: Hospitalist Author Type: Physician Filed: 03/11/17947 Date of Service: 03/11/17944 Status: Signed Film Replacement Orderer: Don Nava MD (Physician) [facility] Service: Hospitalist Progress Note Pt: Smita Willingham AGE/SEX: 61 y.o. female ROOM: [address] [place] [address] : 1955 PCP: No primary care provider [...] of distress though. No chest pain, SOB, GIVENS. No cough on recumbenc y. Had no [...] Infusions lactated ringers 50 mL/hr at 03/10/17 2251 PRN Medications [DISCONTINUED] acetaminophen OR acetaminophen, diphenhydrAMINE [...] Intake/Output Summary (Last 24 hours) at 03/11/17 0924 Last data filed at 03/11/17 0302 Gross [...] MONOPCT 12.46 -- -- Recent Labs Lab 03/11/1743803/10/1741003/09/17 0503 03/08/17 0452 03/07/17 1902 NA 140 139 [...] Date PHOS 2.4 03/11/2017 Recent Labs Lab 03/11/17 0439 03/10/17 0411 03/09/17 0503 MG 1.8 1.6* 1.7 Recent Labs [...] anemia. I will give her intravenous iron tod ay. His INR today is Recent Labs Lab [...] as tolerated. Monitor and follow as indicated. DON NAVA MD, FACP 03/11/2017 9:45 AM Dictation software, Blaast, used which may contain error for similar sounding words even af ter review. Personal communication requested for any clarification. Portions of this chart may have been copied from previous notes for continuity of care purp ose Jordon Hauser ARNP - 03/11/2017 7:45 AM PST . Progress Notes by JENARO Mathew at 03/11/17 8836 Author: JENARO Mathew Service: General Surgery Author Type: Nurse Jennifer enciso Filed: 03/11/17 1348 Date of Service: 03/11/1772 Status: Signed Film Replacement Orderer: JENARO Mathew (Nurse Practitioner) [facility] Service: Colon & Rectal Surgery Progress Note [...] (37.2 C)] 98.2 F (36.8 C) (03/11 123) BP: (112-143)/(56-81) 139/64 (03/11 1236) Heart Rate: [...] Filed: 03/11/17 0143 Date of Service: 03/11/17 0100 Status: Signed Film Replacement Orderer: Lashawn Valdez RN (Registered Nurse) Report given [...] Date of Service: 03/10/17 1520 Status: Signed Film Replacement Orderer: Aniceto Chen PT (Physical Therapist) 03/10/17 1520 PT Last Visit PT Received On 03/10/17 Reason for Treatment Other (comment) (s/p end colostomy) Requires PT Follow Up Awaiting tx order Follow up PT Only? 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 She lives in [place] [place] with her spouse in a single story [...] Note by Catracho Almaguer RN at 03/10/17 8263 Author: Catracho Almaguer RN Service: Wound/Ostomy Care Author Type: Registered Nurse Filed: 03/10/171316 Date of Service: 03/10/171312 Status: Signed Film Replacement Orderer: Catracho Almaguer RN (Registered Nurse) Ostomy nurse [...] Case Management by LEVI Borrego at 03/10/17 131 Author: LEVI Borrego Service: (none) Author Type: Property Investor Filed: 03/10/171312 Date of Service: 03/10/171311 Status: Signed Film Replacement Orderer: LEVI Borrego (Property Investor) Discharge planning: Pt return home with outpt ostomy care. CM entered sticky note for Dr to sign referrral. Don Caraballo MD - 03/10/2017 10:41 AM PST Progress Notes by Don Nava MD at 03/10/17 1041 Author: Don Nava MD Service: Hospitalist Author Type: Physician Filed: 03/10/17 1101 Date of Service: 03/10/17 1041 Status: Signed Film Replacement Orderer: Don Nava MD (Physician) [facility] Service: Hospitalist Progress Note Pt: Smita Willingham AGE/SEX: 61 y.o. female ROOM: [address] [place] [address] : 1955 PCP: No primary care provider [...] kind of distress. No chest pain, SOB, GIVENS. No cough o n recumbency. Had no [...] Not suicida l LABS: Recent Labs Lab 03/10/171 03/09/17 0503 03/08/17 0452 WBC 20.81* 23.25* [...] PHOS 2.1 (L) 03/10/2017 Recent Labs Lab 03/10/1741003/09/17 0503 03/08/17 0452 MG 1.6* 1.7 2.0 Recent Labs Lab 03/09/17 050 INR 1.0 [...] as tolerated. Monitor and follow as indicated. DON NAVA MD, FACP 03/10/2017 10:41 AM Dictation software, Blaast, used which may contain error for similar [...] 03/10/17822 Date of Service: 03/10/17820 Status: Signed Film Replacement Orderer: JENARO Mathew (Nurse Practitioner) [facility] Service: Colon & Rectal Surgery Progress Note [...] (186 lb)] 84.4 kg (186 lb) (03/10 0600) Physical Exam Constitutional: She is oriented to [...] eval and treat, please encourage ambulation -D/C GLOBE CHANGER, percocet and dilaudid for pain -General diet -Continue Ostomy education Disposition: Code Status: Full Code JENARO MATHEW 03/10/2017 onversion Black saction, Provider Unknown - 03/10/2017 5:03 AM PSTFormatting of this note might be differen t from the original. Nurse Progress Note by Angeles Tao RN at 03/10/17502 Author: Angeles Tao RN Service: (none) Author Type: Registered Nurse Filed: 03/10/17505 Date of Service: 03/10/17502 Status: Signed Film Replacement Orderer: Angeles Tao RN (Registered Nurse) Pt very lethargic at start of shift with gradual improvement over the course of the night. Reports no pain when not moving but continues to push GLOBE CHANGER button often. Colostomy producing green liquid stool and gas, changed appliance x1 d/t leaking. Pt's diet was advanced to gene ral per surgeon. Pt incontinent x3 of large amount of urine. Discussed mobilizing with abiodun mcconnell, which she is very resistant to. Pt is noted to have excellent bed mobility. Angeles Tao RN onver roshan Transaction, Provider Unknown - 03/09/2017 7:57 PM PST Nurse Progress Note by Gris Yee RN at 03/09/171956 Author: Gris Yee RN Service: Obstetrics/Gynecology Author Type: Registered Nurse Filed: 03/09/172007 Date of Service: 03/09/171956 Status: Signed Film Replacement Orderer: Gris Yee RN (Registered Nurse) Pt continues to c/o pain but respiration drop down to 4-9 with GLOBE CHANGER. GLOBE CHANGER is stopped. Pt is a waken to [...] Management by Linnea Lezama RN at 03/09/17 400 Author: Linnea Lezama RN Service: (none) Author Type: Registered Nurse Filed: 03/09/17 1573 Date of Service: 03/09/171619 Status: Signed Film Replacement Orderer: Linnea Lezama RN (Registered Nurse) 03/09/171619 Discharge Planning Evaluation Admitting Diagnosis Chron's disease, [...] of Home Care Services Other (Comment) ([facility] for TPN) Mental Status Oriented;Other (comment) (Lethargic) Resources Financial concerns No Transportation issues No Patient/Family concerns No Prescription Plan Yes Name of Pharmacy [facility] in [place] Ostomy/Drains/Appliances Yes (New Colostomy) Anticipated Disposition Facility Type Home Met with pt who was oriented, but lethargic at this time, and discussed discharge planning, Pt is a 61 y.o., female who lives at home with her in [place], [place]. Pt is indepen dent with ADLs and mobility. Uses a cane and walker only as needed. Pt is currently set up with [facility] for TPN. Pt is on coumadin and follow up at the coumadin clinic in [place], [place]. Pt is not on home O2 [...] course. Linnea Lezama RN CM onver roshan Main Provider Unknown - 03/09/2017 9:30 AM PST Therapy Progress Note by Jaz Gonzáles PT at 03/09/17929 Author: Jaz Gonzáles PT Service: (none) Author Type: Physical Therapist Filed: 03/09/17953 Date of Service: 03/09/17929 Status: Signed Film Replacement Orderer: Jaz Gonzáles PT (Physical Therapist) 03/09/17929 PT Last Visit PT Received On 03/09/17 Requires PT Follow Up On hold Other Comments Comments Pts H&H very low at this time, pt will be getting blood and she is very nauseated at this time. Don Caraballo MD - 03/09/2017 9:16 AM PST Progress Notes by Don Nava MD at 03/09/17915 Author: Don Nava MD Service: Hospitalist Author Type: Physician Filed: 03/09/17927 Date of Service: 03/09/17915 Status: Signed Film Replacement Orderer: Don Nava MD (Physician) [facility] Service: Hospitalist Progress Note Pt: Smita Willingham AGE/SEX: 61 y.o. female ROOM: 422/422-1 : 1955 PCP: No primary care provider [...] dioxide. ABGs reviewed. No chest pain, SOB, GIVENS. No cough on recumbency. Had no orthopnea [...] l LABS: Recent Labs Lab 03/09/17 0503 03/08/1745103/07/171901 WBC 23.25* 27.26* 25.36* HGB 6.9* 7.6* 7.8* HCT 23.4* 26.2* 26.4* PLT 375 452* 487* Recent Labs Lab 03/09/17 0503 03/08/1745103/07/171901 NA 139 141 144 K 4.0 3.4* [...] 1.7 2.0 2.2 Recent Labs Lab 03/09/17 0503 INR 1.0 [...] as tolerated. Monitor and follow as indicated. DON NAVA MD, FACP 03/09/2017 9:16 AM Dictation software, Blaast, used which may contain error for similar sounding words even af ter review. Personal communication requested for any clarification. Portions of this chart may have been copied from previous notes for continuity of care purp ose Jordon Hauser ARNP - 03/09/2017 9:09 AM PST . Progress Notes by JENARO Mathew at 03/09/17908 Author: JENARO Mathew Service: General Surgery Author Type: Nurse Jennifer enciso Filed: 03/09/17 1057 Date of Service: 03/09/17908 Status: Signed Film Replacement Orderer: JENARO Mathew (Nurse Practitioner) [facility] Service: Colon & Rectal Surgery Progress Note Hospital Day: LOS: 2 days Post-Op Day: 1 Day Post-Op SUBJECTIVE Patient Summary: 61 y.o. female with Chron's and anovaginal fistulas SP colostomy Events Overnight: Pt complains of nausea this morning. Abdominal pain is controlled with GLOBE CHANGER. Colostomy noted with liquid stool and gas [...] Infusions lactated ringers 110 mL/hr at 03/09/17 5958 sodium chloride (IV) PRN Medications acetaminophen OR [...] to eval and treat, encourage ambulation -Continue GLOBE CHANGER for pain management -Continue CLD per ERAS protocol -Continue Ostomy education -Scopolamine patch for nausea -1 Unit of PRBC -Accurate I&O please Disposition: Code Status: Full Code JENARO MATHEW 03/09/2017 onversion Black saction, Provider Unknown - 03/09/2017 6:56 AM PSTFormatting of this note might be differen t from the original. Progress Notes by Ruma Guerra RN at 03/09/17 0656 Author: Ruma Guerra RN Service: (none) Author Type: Registered Nurse Filed: 03/09/17 0659 Date of Service: 03/09/1756 Status: Signed Film Replacement Orderer: Ruma Guerra RN (Registered Nurse) Notified Dr. Morris of HGB 6.9, orders to transfuse 1 unit of blood. Informed MD that pt continue to be lethargic throughout night but easily arousable. ETCO2 up to 65 at times. Re spiratory came up to do STAT ABG, results came back normal, pt compensated. Will possibly d /c GLOBE CHANGER this AM pending MD decision. Will inform day shift RN. onver roshan Transaction, Provider Unknown - 03/09/2017 4:57 AM PST Progress Notes by Ruma Guerra RN at 03/09/17 0457 Author: Ruma Guerra RN Service: (none) Author Type: Registered Nurse Filed: 03/09/17 0503 Date of Service: 03/09/177 Status: Signed Film Replacement Orderer: Ruma Guerra RN (Registered Nurse) Pt been lethargic but alert and oriented x 4 when pt asked orientation questions. Pt states "I feel like I am getting the flu, my body ache and I feel tired all the time" Vitals WNL, pain managed by GLOBE CHANGER pump. Incontinent of urine. Does not want to get out of bed. Will contin ue to monitor. onver roshan Transaction, Provider Unknown - 03/08/2017 11:43 AM PST Progress Notes by Chata Guadalupe RD at 03/08/17 1143 Author: Chata Guadalupe RD Service: (none) Author Type: Registered Dietitian Filed: 03/08/17 1144 Date of Service: 03/08/17 1143 Status: Signed Film Replacement Orderer: Chata Guadalupe RD (Registered Dietitian) 03/08/17 1124 [...] note reports pt was on "TPN from [facility] in [place]: 275 g Dextrose, 90 g AA, 40 [...] Estimated Energy Needs Total Energy Estimated Needs 8960-0478 kcal/day Method for Estimating Needs 25-30 kcal/kg [...] Follow up date 03/11/[address] [facility] ett, JENARO Ruvalcaba - 03/08/2017 11:25 AM PST Progress Notes by JENARO Mathew at 03/08/17 8590 Author: JENARO Mathew Service: General Surgery Author Type: Nurse Roycee fernie Filed: 03/08/17 3940 Date of Service: 03/08/171124 Status: Signed Film Replacement Orderer: JENARO Mathew (Nurse Practitioner) [facility] Service: Colon & Rectal Surgery Progress Note Hospital Day: LOS: 1 day Post-Op Day: 1 Day Post-Op SUBJECTIVE Patient Summary: 61 y.o. female with Chron's and anovaginal fistulas SP colostomy Events Overnight: Doing well. She complains of nausea this morning but better now. Abdominal pain is controlled with GLOBE CHANGER. ribbing machine operator changed midline dressing, and ostomy appli ance. [...] recommendations -PT to eval and treat -Continue GLOBE CHANGER for pain management -Continue CLD per ERAS protocol -Continue Ostomy education -Continue lovenox for deep vein thrombosis prophylaxis -Encourage ambulation Disposition: Code Status: Full Code JENARO MATHEW 03/08/2017 Shilpa, Don baires MD - 03/08/2017 10:17 AM PST . Progress Notes by Don Nava MD at 03/08/17 1017 Author: Don Nava MD Service: Hospitalist Author Type: Physician Filed: 03/08/17 1032 Date of Service: 03/08/17 1017 Status: Signed Film Replacement Orderer: Don Nava MD (Physician) [facility] Service: Hospitalist Progress Note Pt: Smita Willingham AGE/SEX: 61 y.o. female ROOM: [address] [place] [address] : 1955 PCP: No primary care provider [...] h ungry though. No chest pain, SOB, GIVENS. No cough on recumbency. Had no orthopnea [...] 2.3 03/08/2017 Recent Labs Lab 03/08/17 0452 03/07/17 1902 03/02/17 0405 MG 2.0 2.2 2.1 Recent Labs Lab 03/02/17 0405 03/01/17 [...] I agree with the following nutritional recommendations: DON NAVA MD, FACP 03/08/2017 10:17 AM Dictation software, Blaast, used which may contain error for similar sounding words even af ter review. Personal communication requested for any clarification. Portions of this chart may have been copied from previous notes for continuity of care purp ose onversion Transac tion, Provider Unknown - 03/08/2017 7:37 AM PSTFormatting of this note might be different f rom the original. 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 Thank you! Jazmyn Beard RN, BSN, CIC onver roshan Transaction, Provider Unknown - 03/07/2017 3:04 PM PST Progress Notes by Sofía Chamberlain RPH at 03/07/17 1500 Author: Sofía Chamberlain RPH Service: Pharmacy Author Type: Pharmacist Filed: 03/07/17 1504 Date of Service: 03/07/17 150 Status: Signed Film Replacement Orderer: Sofía Chamberlain RPH (Pharmacist) Clinical Pharmacy Note: Renal Monitoring Smita Willingham 61 y.o. female Ht Readings from Last 1 Encounters: 03/07/17 1.727 m (5' 8") Wt Readings from Last 1 Encounters: 03/07/17 76.7 kg (169 lb 1.5 oz) Serum creatinine: 0.7 mg/dL 03/02/17 0405 Estimated creatinine clearance: 91.9 mL/min Pharmacy dosing for renal function per Dr. Morris. Currently, there are no updated labs. Pharmacy will adjust medications, if necessary, in AM when labs are reported. Sofía Chamberlain PharmD 03/07/2017 3:03 PM onver roshan Transaction, Provider Unknown - 03/07/2017 2:13 PM PST Nurse Progress Note by Vernell Tovar RN at 03/07/17 1413 Author: Vernell Tovar RN Service: (none) Author Type: Registered Nurse Filed: 03/07/17 1415 Date of Service: 03/07/17 1413 Status: Signed Film Replacement Orderer: Vernell Tovar RN (Registered Nurse) Called anesthesia and informed of pt's frequent PVCs but pt denies chest pain or SOB. BP 14 8/69, heart rate 88-90 bpm. Per anesthesia, pt was also having PVCs in the OR. Anesthesia st ates that she will talk with Dr. Morris for an order for pt to be on manager cardiac on t he floor. Vernell Tovar RN docume nted in this encounter H&P Notes Enrique Morris MD - 03/07/2017 10:03 AM PSTFormatting of this note might be different f rom the original. Interval H&P Note by Enrique Morris MD at 03/07/17 1003 Author: Enrique Morris MD Service: General Surgery Author Type: Physician Filed: 03/07/17 1004 Date of Service: 03/07/17 1003 Status: Signed Film Replacement Orderer: Enrique Morris MD (Physician) [facility] Service: Colon & Rectal Surgery Pre-Operative History & Physical Interval Update There have been no significant clinical changes since the completion of the above H&P. Tod ays physical assessment showed HP update PE: Normal appearance, alert and oriented X3 and r espiratory effort normal No changes, we will proceed with the colostomy creation. Enrique Morris MD 03/07/2017 *CORE MEASURES REMINDER: If the patient has a known or suspected infection prior to surger y, please add diagnosis to the problem list (consider: Infection 136.9). Source Note Author: JENARO Mathew Service: General Surgery Author Type: Nurse Jennifer enciso Filed: 03/02/17 3402 Date of Service: 03/02/17 1213 Status: Signed Film Replacement Orderer: JENARO Mathew (Nurse Practitioner) Patient ID: Smita Willingham is a 61 [...] fistulas. She was initially seen by Dr. Morris on 09/09/15 with a chief complaint of [...] She was then recommended to go [place]. She never went to [place] due to the trip being a hardship [...] Procedure: ANAL FISTULA SETON PLACEMENT; Surgeon: Enrique Morris MD; Location: [facility] MAIN OR; Service: General; Laterality: N/A; APPENDECTOMY CHOLECYSTECTOMY ESOPHAGOGASTRODUODENOSCOPY Left 08/06/2015 Procedure: ESOPHAGOGASTRODUODENOSCOPY; Surgeon: Sheng Rios MD; Location: [facility] ENDOSCOPY; Service: Gastroenterology; Laterality: Left; ESOPHAGOGASTRODUODENOSCOPY N/A 04/21/2014 Procedure: ESOPHAGOGASTRODUODENOSCOPY; Surgeon: Bony Petty MD; Location: [facility] BEDSID E PROCEDURE; Service: Gastroenterology; Laterality: N/A; HYSTERECTOMY LAPAROTOMY N/A 04/23/2014 Procedure: EXPLORATION - LAPAROTOMY; Surgeon: Bogdan Moser DO; Location: [facility] MAIN OR; Service: General; Laterality: N/A; LYSIS OF ADHESIONS PORTACATH PLACEMENT Left SMALL INTESTINE SURGERY SPLENECTOMY, TOTAL N/A 04/23/2014 Procedure: SPLENECTOMY; Surgeon: Bogdan Moser DO; Location: [facility] MAIN OR; Service : General; Laterality: N/A; [...] with the patient and her . Enrique Morris MD FACS FASCRS Jordon Hauser ARNP - 03/02/2017 12:13 PM PST . H&P (View-Only) by JENARO Mathew at 03/02/17 1213 Author: JENARO Mathew Service: General Surgery Author Type: Nurse Jennifer enciso Filed: 03/02/17 1418 Date of Service: 03/02/171212 Status: Signed Film Replacement Orderer: JENARO Mathew (Nurse Practitioner) Patient ID: Smita Willingham is a 61 [...] fistulas. She was initially seen by Dr. Morris on 09/09/15 with a chief complaint of [...] She was then recommended to go [place]. She never went to [place] due to the trip being a hardship [...] Procedure: ANAL FISTULA SETON PLACEMENT; Surgeon: Enrique Morris MD; Location: [facility] MAIN OR; Service: General; Laterality: N/A; APPENDECTOMY CHOLECYSTECTOMY ESOPHAGOGASTRODUODENOSCOPY Left 08/06/2015 Procedure: ESOPHAGOGASTRODUODENOSCOPY; Surgeon: Sheng Rios MD; Location: [facility] ENDOSCOPY; Service: Gastroenterology; Laterality: Left; ESOPHAGOGASTRODUODENOSCOPY N/A 04/21/2014 Procedure: ESOPHAGOGASTRODUODENOSCOPY; Surgeon: Bony Petty MD; Location: [facility] BEDSID E PROCEDURE; Service: Gastroenterology; Laterality: N/A; HYSTERECTOMY LAPAROTOMY N/A 04/23/2014 Procedure: EXPLORATION - LAPAROTOMY; Surgeon: Bogdan Moser DO; Location: [facility] MAIN OR; Service: General; Laterality: N/A; LYSIS OF ADHESIONS PORTACATH PLACEMENT Left SMALL INTESTINE SURGERY SPLENECTOMY, TOTAL N/A 04/23/2014 Procedure: SPLENECTOMY; Surgeon: Bogdan Moser DO; Location: [facility] MAIN OR; Service : General; Laterality: N/A; [...] with the patient and her . Enrique Morris MD FACS FASCRS documented in t his encounter Consult Notes Conversion Transaction, Provider Unknown - 03/08/2017 12:39 PM PSTFormatting of this note m ight be different from the original. Consults by Roberta Torres RN at 03/08/17 1239 Author: Roberta Torres RN Service: Wound/Ostomy Care Author Type: Registered Nurse Filed: 03/08/17 1250 Date of Service: 03/08/17 1239 Status: Addendum Film Replacement Orderer: Roberta Torres RN (Registered Nurse) Related Notes: Original Note by Roberta Torres RN (Registered Nurse) filed at 03/08/17 1 246 Consult Orders: 1. Ostomy Care Evaluation and Treat [[id number]] ordered by Enrique Morris MD at 03/07/17 1230 [facility] Service: Ostomy Care Consult Note Hospital Day: LOS: 1 day Post-Op Day: 1 Day Post-Op SUBJECTIVE Patient Summary: Patient s/p new end colostomy. Hx Crohn's. 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 Tolerating cl ears well. Positive gas from the stoma, scant liquid effluent. OBJECTIVE Ostomy Type: colostomy-end Ostomy site: red, moist and well-budded. Measures 2" side to side and 1 5/8" top to bottom . Lumen central. Sits in the left lower quadrant, close to the incision line. Amanda-stomal: intact. Current Appliance: 2-piece moldable. 70 mm. PROBLEM LIST Principal Problem: Rectovaginal fistula Active Problems: Crohn's disease (HCC) GERD (gastroesophageal reflux disease) Hypokalemia Leucocytosis Chronic anticoagulation Hypertension Diarrhea Smoker Chronic narcotic use ASSESSMENT & PLAN Patient too sleepy to retain much information, although she would wake up and ask more ques tions, but would quickly fall back to sleep. 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 Noted stool had leaked under ostomy appliance and under incisional dressi ng, requiring both an ostomy appliance change and dressing change. New [employer] rope plac e with thin hydrocolloid. 2-piece appliance placed next. Justen, TECHNICAL TRANSLATOR would prefer no incisio nal or ostomy care done if possible until Tuesday to keep incision dressing intact. Forms pl aced on the front of the patient's chart for MD signature. New ostomy packet provided to gio herring, along with extra appliance for her to practice with. Starter kit ordered from [employer] ([id number]) ribbing machine operator will return on for packet review and Tuesday for return demonstration of appliance change. Thank you for allowing me to participate in the care of this patient. Thank you for this consult. I will continue to follow with you. Roberta Torres RN, CWON 03/08/2017 Veena Coleman MD - 03/07/2017 6:49 PM PSTFormatting of this note might be different from the o riginal. Consult* by Veena Tobar MD at 03/07/171848 Author: Veena Tobar MD Service: (none) Author Type: Physician Filed: 03/07/171857 Date of Service: 03/07/171848 Status: Signed Film Replacement Orderer: Veena Tobar MD (Physician) [facility] Service: Hospitalist Consult note Date of Admission: 03/07/2017 CHIEF COMPLAINT: Postop medical management HISTORY OF PRESENT ILLNESS The patient is a 61 y.o. female with significant past medical history of complicated and r esistant Crohn's disease who had failed outpatient therapy with Humira and chronic oral pred nisone, sees Dr. Krishna, history of previous surgery secondary to Crohn's flareup, rectov aginal fistula resulting in multiple urinary tract infection, chronic narcotic use who prese nts with hypokalemia mostly secondary to GI loss via diarrhea because of her Crohn's flareu p. She has been contemplating on getting an diverging colostomy surgery with Dr. morris. Preop labs showed severe hypokalemia and that is what made her come to the hospital for admi ssion. She underwent a successful surgery today. Patient resting comfortably in the bed toda y. He is on IV fluids, has indwelling Wolf catheter for urinary incontinence. She lives with her at home. Previously, because of Crohn's flareup, she was started on TPN with bowel rest as recommended by her GI doctor. However that did not work. She also ended up with sepsis secondary to urinary tract infection and was hospitalized. Diarrhea givens s been persistent and hence she decided to have the surgery done in here rather than going t o [place] for a second opinion. She is a smoker. Continues to smoke cigarettes at this time. Does not use a cane, walker bu t is quite fatigued and weak. Lives with her at home. She has an history of splenic vein thrombosis requiring splenectomy. Previously she had bee n on Coumadin with therapeutic INR. Persistent leukocytosis has been a problem. Most likely secondary to oral prednisone but sh e is chronically on. REVIEW OF SYSTEMS ROS obtained from patient. All 12 systems reviewed. No other positive pertinent findings n oted except for the ones mentioned above. Past Medical History Diagnosis Date CHF (congestive heart failure) ([facility]) happened after splenectomy Chronic diarrhea COPD (chronic obstructive pulmonary disease) (HCC) Crohn's disease (HCC) Deep vein thrombosis (DVT) ([facility]) right leg and then travelled to spleen [...] chronic pain Pyelonephritis Recurrent aphthous ulcer Sepsis ([facility]) Past Surgical History Procedure Laterality Date ABDOMINAL SURGERY ANAL FISTULA SETON PLACEMENT N/A 10/17/2015 Procedure: ANAL FISTULA SETON PLACEMENT; Surgeon: Enrique Morris MD; Location: [facility] AIN OR; Service: General; Laterality: N/A; APPENDECTOMY CHOLECYSTECTOMY ESOPHAGOGASTRODUODENOSCOPY Left 08/06/2015 Procedure: ESOPHAGOGASTRODUODENOSCOPY; Surgeon: Sheng Rios MD; Location: [facility] ENDOSCOPY; Service: Gastroenterology; Laterality: Left; ESOPHAGOGASTRODUODENOSCOPY N/A 04/21/2014 Procedure: ESOPHAGOGASTRODUODENOSCOPY; Surgeon: Bony Petty MD; Location: [facility] BEDSIDE PROCEDURE; Service: Gastroenterology; Laterality: N/A; HYSTERECTOMY LAPAROTOMY N/A 04/23/2014 Procedure: EXPLORATION - LAPAROTOMY; Surgeon: Bogdan Moser DO; Location: [facility] MAIN O R; Service: General; Laterality: N/A; LYSIS OF ADHESIONS PORTACATH PLACEMENT Left SMALL INTESTINE SURGERY SPLENECTOMY, TOTAL N/A 04/23/2014 Procedure: SPLENECTOMY; Surgeon: Bogdan Moser DO; Location: [facility] MAIN OR; Service: General; Laterality: N/A; TONSILLECTOMY [...] 30 tablet 0 03/07/2017 at Unknown time enoxaparin (LOVENOX) 80 MG/0.8ML SOLN Inject 0.7 mLs into the skin every 12 (twelve) ho urs for 8 doses. 5.6 mL 0 03/06/2017 [...] times daily. Taking a t Unknown time oxyCODONE-acetaminophen (PERCOCET) 10-325 MG per tablet Take 1 tablet by mouth every 4 (four) hours as needed for Pain for up to 10 days. 50 tablet 0 03/07/2017 at 0800 potassium chloride (K-DUR,KLOR-CON) 20 MEQ tablet Take [...] d aily. Not Taking at Unknown time Family History Problem Relation Age of Onset Malig hypertherm Neg Hx Social History Social History Marital status: Spouse [...] No narrative on file PHYSICAL EXAM BP 144/65 | Pulse 98 | Temp 98 F (36.7 C) (Axillary) | Resp 22 | Ht 1.727 m (5' 8") | Wt 76.7 kg (169 lb 1.5 oz) | SpO2 93% | BMI 25.71 kg/m Patient is awake, alert, oriented to time, place and person Skin: Warm and supple Neck: No JVD Chest: Normal vesicular breath sounds, good air entry bilaterally CVS: S1S2 audible, no murmurs heard Abdomen: Colostomy present diffuse generalized tenderness after surgery. Extremities: No pedal edema, clubbing or cyanosis Neurologic examination: No focal sensory or motor deficits Back examination: No CVA tenderness, no spinal tenderness DATA CBC, CMP, magnesium and phosphorus has been ordered and is pending. PROBLEM LIST Principal Problem: Rectovaginal fistula Active Problems: Crohn's disease (HCC) GERD (gastroesophageal reflux disease) Hypokalemia Leucocytosis Chronic anticoagulation Hypertension Diarrhea Smoker Chronic narcotic use ASSESSMENT & PLAN Principal problem: Rectovaginal fistula status post surgery. Patient on IV fluids. Surgery managing diet and p ain. Patient remains on Dilaudid as needed GLOBE CHANGER as well as recommended by surgery because of her chronic history of narcotic use. Patient to stay off anticoagulation at this time includ ing any heparin drip or Lovenox as her surgery. Secondary problem: Deep vein thrombosis prophylaxis: Lovenox and SCDs only for now. Peripheral neuropathy: Continue with gabapentin. Hypertension: On metoprolol. Gastroesophageal reflux disease: On PPI. Chronic steroid use: Continue with home dose of prednisone. Surgery to follow. History of splenic vein thrombosis: Currently off anticoagulation at this time. Check dietary for nutritional status as her po intake is scanty. Patient to stay off TPN as per surgery. Smoker: Encouraged to quit. Not on any patches. Leukocytosis: Chronic. We will continue to trend. Unlikely to be any infection related but mostly related to chronic prednisone use. Code Status: Full Code Primary Care Physician: No primary care provider on file. Veena Tobar MD 03/07/2017 documented in this e ncounter Miscellaneous Notes Plan of Care - Conversion Transaction, Provider Unknown - 03/12/2017 11:33 AM PST Plan of Care by Rachel Adkins RN at 03/12/17 2790 Author: Rachel Adkins RN Service: (none) Author Type: Registered Nurse Filed: 03/12/17 8439 Date of Service: 03/12/171132 Status: Signed Film Replacement Orderer: Rachel Adkins RN (Registered Nurse) Daily Care Daily care needs are met Progressing Mobility LTG - Patient will ambulate for 500 ft with normalized gait pattern for improved safety with household/community mobility Progressing Pain Patient's pain/discomfort is manageable Progressing Safety Patient will be injury free during hospitalization Progressing All pertinent questions and concerns addressed at this time. lan o f Elizabeth Silva MD - 03/12/2017 6:28 AM PSTFormatting of this note might be diffe rent from the original. Plan of Care by Elizabeth Mckeon MD at 03/12/17627 Author: Elizabeth Mckeon MD Service: Hospitalist Author Type: Physician Filed: 03/12/17 0754 Date of Service: 03/12/17627 Status: Signed Film Replacement Orderer: Elizabeth Mckeon MD (Physician) Related Notes: Original Note by Elizabeth Mckeon MD (Physician) filed at 03/12/1749 Notified by RN, patient complaining of anxiety. Earlier yesterday she received Ativan 2 mg IV for 1 dose. During this hospital stay patient has been on oxygen, between 2 L and 3 L. Sh ying has history of COPD. Normally she is not on benzodiazepines at home, therefore ordered hyd roxyzine 25 mg p.o. for 1 dose. Forty minutes later received a call from the nurse, marjorie villalpando hydroxyzine is not helping and patient wants Ativan. Evaluated the patient at the bedside. She states she is anxious when she is in the hospital . Normally does not use chronic benzodiazepines, does not drink alcohol. She is not on oxyge n at home. She denies any chest pain, arm pain, jaw pain, interscapular pain, cough, shortne ss of breath, wheezing. She is anxious, as there is a plan for discharge to home. She does n ot think that she is ready for discharge. She is sitting in the chair, shaking her legs and asking for either Dilaudid or Ativan to h elp her "mellow down." Patient is alert, oriented x4. Answers questions appropriately. Heart is regular. Lungs are clear to auscultation bilaterally. No wheeze. No rales. Respirations not labored. On 2 L saturating 92%. I explained to the patient we will give another 25 mg of hydroxyzine, as the dose for anxie ty is 50 mg. Patient just received oxycodone 15 mg about an hour ago, therefore will not giv e any more narcotics, and with history of COPD and baseline hypoxia would avoid benzodiazepi dereck. Ordered x-ray. Official report is pending. Since the oxygenation status has not changed sin ce her admission, will not order ABGs at this time. lan of Care - Conve rsion Transaction, Provider Unknown - 03/11/2017 11:22 PM PSTFormatting of this note might b e different from the original. Plan of Care by Lashawn Valdez RN at 03/11/172321 Author: Lashawn Valdez RN Service: (none) Author Type: Registered Nurse Filed: 03/11/172321 Date of Service: 03/11/172321 Status: Signed Film Replacement Orderer: Lashawn Valdez RN (Registered Nurse) Problem: Safety Goal: Patient [...] policy, and non-skid footwear provided. Outcome: Progressing Bed alarm set at all times. lan o f Care - Conversion Transaction, Provider Unknown - 03/11/2017 11:22 PM PSTFormatting of thi s note might be different from the original. Plan of Care by Lashawn Valdez RN at 03/11/172321 Author: Lashawn Valdez RN Service: (none) Author Type: Registered Nurse Filed: 03/11/172321 Date of Service: 03/11/172321 Status: Signed Film Replacement Orderer: Lashawn Valdez RN (Registered Nurse) Problem: Pain Goal: Patient's pain/discomfort is manageable Assess and monitor patient's pain using appropriate pain scale. Collaborate with interdisci plinary team and initiate plan and interventions as ordered. Re-assess patient's pain level approximately 1-2 hours after pain management intervention. Premedicate as needed. Outcome: Progressing Reports pain is controlled on oral medication lan o f Care - Conversion Transaction, Provider Unknown - 03/11/2017 10:47 AM PSTFormatting of mendy capellan note might be different from the original. Plan of Care by Blanca Shaffer RN at 03/11/171046 Author: Blanca Shaffer RN Service: (none) Author Type: Registered Nurse Filed: 03/11/171048 Date of Service: 03/11/171046 Status: Signed Film Replacement Orderer: Blanca Shaffer RN (Registered Nurse) Daily Care Daily care needs are met Progressing Mobility LTG - Patient will ambulate for 500 ft with normalized gait pattern for improved safety with household/community mobility Progressing Pain Patient's pain/discomfort is manageable Progressing Safety Patient will be injury free during hospitalization Progressing Weaning off IV pain meds this am. MD increased dose of PO pain meds. Dose given. Up in [facility] at this time watching television. Appears comfortable. lan o f Care - Conversion Transaction, Provider Unknown - 03/11/2017 12:09 AM PSTFormatting of mendy capellan note might be different from the original. Plan of Care by Lashawn Valdez RN at 03/11/178 Author: Lashawn Valdez RN Service: (none) Author Type: Registered Nurse Filed: 03/11/178 Date of Service: 03/11/178 Status: Signed Film Replacement Orderer: Lashawn Valdez RN (Registered Nurse) Problem: Pain Goal: Patient's pain/discomfort is manageable Assess and monitor patient's pain using appropriate pain scale. Collaborate with interdisci plinary team and initiate plan and interventions as ordered. Re-assess patient's pain level approximately 1-2 hours after pain management intervention. Premedicate as needed. Outcome: Progressing Patient still requiring IV pain medication PRN occasionally. lan o f Jerald - Aniceto Chen, PT - 03/10/2017 4:35 PM PSTFormatting of this note might be differ ent from the original. Plan of Care by Aniceto Chen PT at 03/10/171634 Author: Aniceto Chen PT Service: (none) Author Type: Physical Therapist Filed: 03/10/171634 Date of Service: 03/10/171634 Status: Signed Film Replacement Orderer: Aniceto Chen PT (Physical Therapist) Problem: Mobility Goal: LTG - Patient will ambulate for 500 ft with normalized gait pattern for improved safe ty with household/community mobility Outcome: Progressing Goal Status: Continue goal lan of Care - Conver roshan Transaction, Provider Unknown - 03/10/2017 11:15 AM PST Plan of Care by Tanika Woodruff RN at 03/10/171114 Author: Tanika Woodruff RN Service: (none) Author Type: Registered Nurse Filed: 03/10/171114 Date of Service: 03/10/171114 Status: Signed Film Replacement Orderer: Tanika Woodruff RN (Registered Nurse) Daily Care Daily care needs are met Progressing Pain Patient's pain/discomfort is manageable Progressing Safety Patient will be injury free during hospitalization Progressing Pt transitioned to orals and IV push, GLOBE CHANGER discontinued. lan o f Care - Conversion Transaction, Provider Unknown - 03/10/2017 5:07 AM PSTFormatting of thi s note might be different from the original. Plan of Care by Angeles Tao RN at 03/10/17506 Author: Angeles Tao RN Service: (none) Author Type: Registered Nurse Filed: 03/10/17506 Date of Service: 03/10/17506 Status: Signed Film Replacement Orderer: Angeles Tao RN (Registered Nurse) Daily Care Daily care needs are met Progressing Pt is able to verbalize needs and demonstrates use of call light. lan o f Care - Conversion Transaction, Provider Unknown - 03/10/2017 2:44 AM PSTFormatting of thi s note might be different from the original. Plan of Care by Angeles Tao RN at 03/10/17243 Author: Angeles Tao RN Service: (none) Author Type: Registered Nurse Filed: 03/10/17243 Date of Service: 03/10/17243 Status: Signed Film Replacement Orderer: Angeles Tao RN (Registered Nurse) Daily Care Daily care needs are met Progressing Pt able to verbalize needs to staff and demonstrates use of call light. lan o f Care - Elizabeth Mckeon MD - 03/09/2017 6:33 AM PSTFormatting of this note might be diffe rent from the original. Plan of Care by Elizabeth Mckeon MD at 03/09/17632 Author: Elizabeth Mckeon MD Service: Hospitalist Author Type: Physician Filed: 03/09/17634 Date of Service: 03/09/17632 Status: Signed Film Replacement Orderer: Elizabeth Mckeon MD (Physician) Notified by RN h/hct dropped from 7.6/26.2 to 6.9/23.4 No overt bleeding sx. On GLOBE CHANGER , End tidal co2 is mid 60's Ordered ABG Will let surgery decide on transfusion. lan of Care - Conve rsion Transaction, Provider Unknown - 03/09/2017 1:00 AM PSTFormatting of this note might b e different from the original. Plan of Care by Ruma Guerra RN at 03/09/1799 Author: Ruma Guerra RN Service: (none) Author Type: Registered Nurse Filed: 03/09/17104 Date of Service: 03/09/1799 Status: Signed Film Replacement Orderer: Ruma Guerra RN (Registered Nurse) Safety Patient will be injury free during hospitalization Not Progressing Pt reports improvement with prescribed pain medication per GLOBE CHANGER pump lan o f Care - Conversion Transaction, Provider Unknown - 03/08/2017 10:15 AM PSTFormatting of thi s note might be different from the original. Plan of Care by Era Shaikh RN at 03/08/17 1015 Author: Era Shaikh RN Service: (none) Author Type: Registered Nurse Filed: 03/08/17 1016 Date of Service: 03/08/17 1015 Status: Signed Film Replacement Orderer: Era Shaikh RN (Registered Nurse) Pain Patient's pain/discomfort is manageable Progressing Pt continues to use GLOBE CHANGER appropriately. Will transition to oral meds once diet is advanced. Safety Patient will be injury free during hospitalization Progressing Pt ambulated in hallway with standby assist. Pt uses call light appropriately. lan o f Care - Conversion Transaction, Provider Unknown - 03/08/2017 3:29 AM PSTFormatting of thi s note might be different from the original. Plan of Care by Ruma Guerra RN at 03/08/17328 Author: Ruma Guerra RN Service: (none) Author Type: Registered Nurse Filed: 03/08/17 0330 Date of Service: 03/08/17328 Status: Signed Film Replacement Orderer: Ruma Guerra RN (Registered Nurse) Pain Patient's pain/discomfort is manageable Progressing Pt reports improvement with GLOBE CHANGER pump. Re-assess pain per protocol Safety Patient will be injury free during hospitalization Progressing Call light and bedside table within reach, non skid socks on while OOB lan o f Care - Conversion Transaction, Provider Unknown - 03/07/2017 5:13 PM PSTFormatting of thi s note might be different from the original. Plan of Care by Becca Ahn RN at 03/07/171712 Author: Becca Ahn RN Service: (none) Author Type: Registered Nurse Filed: 03/07/171712 Date of Service: 03/07/171712 Status: Signed Film Replacement Orderer: Becca Ahn RN (Registered Nurse) Patient will be injury free during hospitalization Progressing Call light in place. Instructed patient to use when assistance is needed. BECCA AHN RN 03/07/2017 5:13 PM p Not e - Enrique Morris MD - 03/07/2017 12:30 PM PSTFormatting of this note might be differen t from the original. Op Note by Enrique Morris MD at 03/07/17 1230 Author: Enrique Morris MD Service: General Surgery Author Type: Physician Filed: 03/07/17 0570 Date of Service: 03/07/170 Status: Signed Film Replacement Orderer: Enrique Morris MD (Physician) Related Notes: Original Note by Enrique Morris MD (Physician) filed at 03/07/17 1234 [facility] Service: Colon & Rectal Surgery Operative Note Pre-operative Diagnosis: Crohn's disease, severe anorectal involvement, intractible diarrh ea. Post-operative Diagnosis: Same Procedure(s): Lysis of adhesions and creation of an end colostomy. Surgeon: Enrique Morris MD Sharepoint Administrator(s): Severo EASON Anesthesia: General endotrachial anesthesia Estimated Blood Loss: Less Than 10 ml (Minimal) Other: Not applicable Indications: See pre-operative history and physical. Findings: Intraabdominal adhesions. Complications: none acute Description of Procedure: The patient was taken to the operating room and was placed in li thotomy position after general anesthesia with endotracheal intubation. Preoperative antibio tics were given. The abdomen was prepped and draped in the usual sterile fashion. A midline incision was made over the prior midline incision. This was deepened through the subcutaneou s down to the fascia. The fascia was opened with a knife, entered carefully into the periton eal cavity, and then extended the incision from the symphysis pubis to just above the umbili cus. I then performed lysis of adhesions with a Bovie and Metzenbaum of the omentum to the a bdominal wall and some omental and small bowel adhesions. I then appropriately placed retrac tors and identified the descending colon, sigmoid, and rectosigmoid junction. I decided to c reate the colostomy at the distal sigmoid. This was redundant, but I needed to mobilize late ral to medial with the Bovie. I identified the plane. I identified the left ureter and gonad als that were preserved. I then transected the bowel with an Endo-REED black load and seriall y ligated the mesentery using the LigaSure. This was hemostatic. I divided the superior hemo rrhoidal at that level using a LigaSure and this was hemostatic. This straightened up the en d colostomy. The distal end was tagged with 2-0 Prolene. The proximal end was readied for th e stoma. I made a distal incision in the left lower quadrant in the preoperatively marked si te. This was deepened through the subcutaneous down to the fascia. The fascia was opened in a cruciate manner and the muscle was split. The peritoneum was opened, and then I delivered the end of the stapler line of the descending colon into the field. I then placed Interceed on top of the bowel and closed the midline fascia with an 0 looped PDS and the skin with sta ples. A dressing was applied, and then I matured the stoma and everted it 1 cm above the ski n using circumferential 3-0 Vicryl sutures interrupted. A stoma bag was applied. The patient tolerated the procedure well. Condition: Stable Enrique Morris MD 03/07/2017 documented in this encounter Plan of Treatment [...] | TYPE AND SCREEN | Routin | 03/07/2017 | | Results for this | | | e | 10:15 AM | | procedure are in the [...] Mar 12 2017 7:39AM Referring Provider Line: [phone] ID: | | | 109 | | [...] + | Judson, Rad Conversion - 11/23/2018 2:13 AM PDT EXAM:CHEST [...] Mar 12 2017 7:39AM Referring Provider Line: [phone] ID: | | 109 | |Lungs/Pleura: Right [...] Mar 12 2017 7:39AM Referring Provider Line: [phone] ID: [id number] | + + External Lab: RAPHAEL (03/12/2017 3:21 AM PST) + + +---- [...] +---- + + + | Non- | 3.41 (L) | 3.7 0 - 5.10 | EXTERNAL | | | Red Blood | | M/u L | LAB | | | Cells | | | | | | Counted | | | | | + + +---- + + + | Hemoglobin | 8.5 (L) | 11. 3 - [...] | | | | | | at [facility], [address] | | | | | | [facility], | | | | | | [place] [address] | | | | | |2+ | | | | | |POIK | | | | | |3+ | | | | | |ANISO | | | | | |NORMAL PLT MORPH | | | | | |Testing performed at [facility], [address] [place] [address] | | | | | | | [...] | | | | | performed at [facility], [address] | | | | | | [address], | | | | | | [place] [address] | | | | + + + [...] | | | | | performed at [facility], [address] | | | | | | [address], | | | | | | [place] [address] | | | | + + + [...] | | | | | | [place] [address] | | | | + + + [...] + + + + | Non- | 3.18 (L) | 3.70 - 5.10 | EXTERNAL | | | Red Blood | | M/uL | LAB | | | Cells | | | | | | Counted | | | | | + + + + + + | Hemoglobin | 7.7 (L) | 11.3 - 15.5 [...] | | | | | performed at [facility], [address] | | | | | [address], | | | | | | [place] [address] | | | | + + + [...] | | | | | [place] [address] | | | | + + + [...] EXTERNAL | | | | performed at [facility], [address] | | LAB | | | | [address], | | | | | | [place] [address] | | | | + + + [...] | | | | | | at [facility], [address] | | | | | | [address], | | | | | | [place] [address] | | | | + + + [...] +---- + + + | Non- | 3.44 (L) | 3.7 0 - 5.10 | EXTERNAL | | | Red Blood | | M/u L | LAB | | | Cells | | | | | | Counted | | | | | + + +---- + + + | Hemoglobin | 8.0 (L) | 11. 3 - [...] | | | | | | at [facility], [address] | | | | | | [facility], | | | | | | [place] [address] | | | | | |3+ | | | | | |HYPO | | | | | |NORMAL PLT MORPH | | | | | |Testing performed at [facility], [address] [facility], [place] [address] | | | | | | | [...] EXTERNAL | | | | performed at [facility], [address] | | LAB | | | | [address], | | | | | | [place] [address] | | | | + + + [...] EXTERNAL | | | | performed at [facility], [address] | | LAB | | | | [address], | | | | | | [place] [address] | | | | + + + [...] [address], | | | | | | [place] [address] | | | | + + + [...] | | | | | [place] [address] | | | | + + + [...] | | | | performed at [facility] | | | | | | [facility];[place], [place] | | | | | | [address] | | | | + + + [...] +---- + + + | Non- | 3.08 (L) | 3.7 0 - 5.10 | EXTERNAL | | | Red Blood | | M/u L | LAB | | | Cells | | | | | | Counted | | | | | + + +---- + + + | Hemoglobin | 6.9 (LL)Comment: RESULT | 11. 3 - 15.5 | EXTERNAL | | | | READ BACK BY:ROGER Blackwell RN | g/d L | LAB | | | | SURG 60103/09/17 KB | | | | | |ROGER Blackwell RN SURG 60103/09/17 KB | | | | | | [...] | | | | | performed at [facility], [address] | | | | | | [facility], | | | | | | [place] [address] | | | | | |TARGET | | | | | |NORMAL PLT MORPH | | | | | |Testing performed at [facility], [address] [facility], [place] [address] | | | | | | | [...] | | | | | [place] [address] | | | | + + + [...] EXTERNAL | | | | performed at [facility], [address] | | LAB | | | | [address], | | | | | | [place] [address] | | | | + + + [...] | | | | | | at [facility], [address] | | | | | | [facility], | | | | | | [place] [address] | | | | + + + [...] + +---------+ + + External Lab: RAPHAEL (03/08/2017 4:52 AM PST) + + +---- [...] +---- + + + | Non- | 3.49 (L) | 3.7 0 - 5.10 | EXTERNAL | | | Red Blood | | M/u L | LAB | | | Cells | | | | | | Counted | | | | | + + +---- + + + | Hemoglobin | 7.6 (L) | 11. 3 - [...] | | | | | | at [facility], [address] | | | | | | [facility], | | | | | | [place] [address] | | | | | |2+ | | | | | |TARGET | | | | | |NORMAL PLT MORPH | | | | | |Testing performed at [facility], [address] [place] [address] | | | | | | | [...] EXTERNAL | | | | performed at [facility], [address] | | LAB | | | | [address], | | | | | | [place] [address] | | | | + + + [...] EXTERNAL | | | | performed at [facility], [address] | | LAB | | | | [address], | | | | | | [place] [address] | | | | + + + [...] | | | | | | at [facility], [address] | | | | | | [address], | | | | | | [place] [address] | | | | + + + [...] | | | | performed at [facility] | | | | | | [facility];[place], [place] | | | | | | [address] | | | | + + + [...] + + + | Non- | 3.62 (L) | 3.70 - 5.10 | EXTERNAL | | | Red Blood | | M/uL | LAB | | | Cells | | | | | | Counted | | | | | + + + + + + | Hemoglobin | 7.8 (L) | 11.3 - 15.5 [...] | | | | | at [facility];[address] [facility] | | | | | | [address];[place] [address] | | | | | |HYPO | | | | | |1+ | | | | | |TARGET | | | | | |NORMAL PLT MORPH | | | | | |Testing performed at [facility];[address] [place] [address];[place] [address] | | | | | | | [...] | | | | performed at [facility];[address] | | LAB | | | | [address];[place] | | | | | | [address] | | | | + + + [...] | | | | performed at [facility];[address] | | LAB | | | | [address];[place], [place] | | | | | | [address] | | | | + + + [...] | | | | | at [facility];[address] [place] [address] | | | | | | [facility];[place] [address] | | | | + + + [...] | | Fingerstick | performed at [facility];[address] | | LAB | | | | [address];[place], [place] | | | | | | [address] | | | | + + + + + + + + | Specimen | + + | | + + + +---------+ + + | Performing | Address | City/State/Zipcode | Phone Number | | Organization | | | | + +---------+ + + | EXTERNAL LAB | | | | + +---------+ + + Type and Screen (03/07/2017 10:15 AM PST) + + + + + [...] + + + | BB BAND | [id number] | | EXTERNAL | | | | | | LAB | | + + + + + + | UNIT NUMBER | [id number] | | EXTERNAL | | | | | | LAB | | + + + + + + | Product | LEUKODEPLETED PC,B | | EXTERNAL | | | Code | | | LAB | | + + + + + + | Unit | 00 | | EXTERNAL | | | Division | | | LAB | | + + + + + + | Unit Status | ISSUED,FINAL | | EXTERNAL | | | | | | LAB | | + + + + + + | Transfusion | OK TO TRANSFUSE | | EXTERNAL | | | Status | | | LAB | | + + + + + + | CROSSMATCH | COMPATIBLETesting | | EXTERNAL | | | RESULT | performed at [facility];[address] | | LAB | | | | [address];[place] | | | | | | [address] | | | | + + + [...]
--- OUTSIDE RECORDS SUMMARY | ~2019-11-03 | XMS | Encounter Summary ---
Demographics + + + | Address | [address] | | | [place] [address] | + + + | Home Phone | | + + + | Preferred Language | Unknown | + + + | Marital Status | | + + + | Yazdanism Affiliation | Unknown | + + + | Race | Unknown | + + + | Ethnic Group | Unknown | + + + Author + + + | Author | [facility] | | | and [place] | + + + | Organization | [facility] [...] Team Providers + +------+ + | Care Web Services Architect Name | Role | Phone | + +------+ + PCP | Unavailable | + +------+ + Encounter Details +--------+ + + + + | Date | Type | Department | Care Team | Description | +--------+ + + + + | 03/01/ | Hospital | [facility] | Conversion | | | 2017 | Encounter | CENTER [facility] | Transaction, | | | | | CLINIC [address] | Provider Unknown | | | | | [place], [place] | | | | | | [address] | (Fax) | | | | | [phone] | | | +--------+ + + + [...] + + documented as of this encounter Procedure Notes Conversion Transaction, Provider Unknown - 03/01/2017 6:43 PM PSTFormatting of this note m ight be different from the original. 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 Per [facility] policy She state s understanding onver roshan Transaction, Provider Unknown - 03/01/2017 6:33 PM PST Pre-Procedure Instructions by Laine Bryant RN at 03/01/171832 Author: Laine Bryant RN Service: (none) Author Type: Registered Nurse Filed: 03/01/171835 Date of Service: 03/01/171832 Status: Signed Dairy Powder Mixer Operator: Laine Bryant RN (Registered Nurse) Lab called and CBC tube was clotted and K+ 2.3 CL. Called and spoke to pt. Spouse and advis ed to go to [facility] ED main campus due to critically low K+. He states he will do. Called and gave report to LUKASZ Adamson lead in ED onver roshan Transaction, Provider Unknown - 03/01/2017 5:25 PM PST Pre-Procedure Instructions by Laine Bryatn RN at 03/01/171724 Author: Laine Bryant RN Service: (none) Author Type: Registered Nurse Filed: 03/01/171729 Date of Service: 03/01/171724 Status: Signed Dairy Powder Mixer Operator: Laine Bryant RN (Registered Nurse) AHA guidelines for non cardiac, non emergent surgery followed. METS score greater than 4. D oes not see a human resources administrator. Denies any chest pain, SOB, or any other cardiac symptoms. Pt st ates she stopped her coumadin yesterday and there will be no bridging docume nted in this encounter Plan of [...] for this | | | e | 4:59 PM | | procedure are in the [...] | | | Screen | performed at [facility];[address] | | LAB | | | [address];[place], [place] | | | | | | [address] | | | | + + + [...] | | | PCRAbnormal Testing performed at [facility];[address] [facility];[place] [address] | | + + + + +---------+ + + | Performing | Address | City/State/Zipcode | Phone Number | | Organization | | | | + +---------+ + + | EXTERNAL LAB | | | | + +---------+ + + Protime INR (03/01/2017 5:23 PM PST) + + + [...] | | | | | performed at [facility] | | | | | | [facility];[place], [place] | | | | | | [address] | | | | + + + [...] | | | | | | at [facility];[address];[place] [address] | | | | + + + [...] +---------+ + + ECG 12 lead (03/01/2017 4:59 PM PST) + + + + + + | Component | Value | Ref Range | Performed | Pathologist | | | | | At | Signature | + + + + + + | DIAGNOSIS: | Sinus tachycardiaST | | EXTERNAL | | | | and/or T wave | | LAB | | | | abnormalities suggesting | | | | | | myocardial | | | | | | ischemiaProlonged | | | | | | QTAbnormal ECGWhen | | | | | | compared with ECG of | | | | | | 10-OCT-2015 14:04,ST now | | | | | | depressed in | | | | | | Anterolateral leadsT | | | | | | wave inversion now | | | | | | evident in Inferior | | | | | | leadsNonspecific T wave | | | | | | abnormality no longer | | | | | | evident in Lateral | | | | | | leadsQT has | | | | | | lengthenedConfirmed by | | | | | | LEONA MANDEL ([id number]) on | | | | | | 03/02/2017 7:47:44 AM | | | | + + + + + + + + | Specimen | + + | | + + + + + | Narrative | Performed At | + + + | Historically converted procedure from [facility] Epic environment | EXTERNAL LAB | + [...]
--- OUTSIDE RECORDS SUMMARY | ~2019-11-03 | XMS | Encounter Summary ---
Demographics + + + | Address | [address] | | | [place] [address] | + + + | Home Phone | | + + + | Preferred Language | Unknown | + + + | Marital Status | | + + + | Christian Affiliation | NRP | + + + | Race | White | + + + | Ethnic Group | Not or | + + + Author + + + | Author | [facility] | + + + | Organization | [facility] | + + + | Address | Unknown | + + + | Phone | Unavailable | + + + Support + + + + + | Name | Relationship | Address | Phone | + + + + + | Kole Hartley | LAMONT | [address] | | | | | [place], [place] | | | | | [address] | | + + + + + | Cami Sawyer | ECON | Unknown | | + + + + + Care Team Providers + +------+ + | Care Mixer Runner Name | Role | Phone | + [...] [address] | | | | | [place], [place] | [address] | | | 05/13/ | | | [place], [place] | | | 2014 | | [phone] | [address] | | | | | | [phone] | | | | | | | | | | | | Jf Wiseman MD | | | | | | [address] | | | | | | [address] | | | | | | [place], [place] | | | | | | [address] | | | | | | [phone] | | | | | | | [...] different f rom the original. [facility] DEPARTMENT OF SURGERY EMERGENCY GENERAL SURGERY Division [...] continued to progress and is discharged [facility]. Mackenzie Hartley is discharged in stable [...] 100mls three times a day. Destination: Destination: Long-Term Facility Thank you for the opportunity to [...] different f rom the original. 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 S he [...] thrombosis while anticoagulated with warfarin transferred to [facility] from [facility] for management of retroperitoneal bleed. She is [...] know if she wants to see the [facility] GI team - Stage I pressure [...] recommending [facility] since would be close to [facility] and she would benefit for aggres [...] with complication 03/12/2012 Jean-Claude Albrecht D.M.D., M.D. [facility] [address] [place] [address] This assessment and plan was formulated both [...] MD - 05/11/2014 8:51 AM PST . 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 S he [...] thrombosis while anticoagulated with warfarin transferred to [facility] from [facility] for management of retroperitoneal bleed. She is [...] know if she wants to see the [facility] GI team - Stage I pressure [...] recommending [facility] since would be close to [facility] and she would benefit for aggres [...] with complication 03/12/2012 Jean-Claude Albrecht D.M.D., M.D. [facility] [address] [place] [address] This assessment and plan was formulated both [...] being active. Pt's has been at the [facility] supporting her. Pt is not anabaptism but appreciates support. Intervention: Provided a listening presence and explored pt's anxieties, worries and hopes. Plan: Spiritual care remains available. 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 S he [...] thrombosis while anticoagulated with warfarin transferred to [facility] from [facility] for management of retroperitoneal bleed. She is [...] know if she wants to see the [facility] GI team - Stage I pressure [...] recommending [facility] since would be close to [facility] and she would benefit for aggres [...] intestine with complication 03/12/2012 ANDREW VINCENT MD [facility] [address] [place] [address] This assessment and plan was [...] note might be different from the orig psychiatric hospital. 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 S he [...] thrombosis while anticoagulated with warfarin transferred to [facility] from [facility] for management of retroperitoneal bleed. She is [...] know if she wants to see the [facility] GI team - Stage I pressure [...] recommending [facility] since would be close to [facility] and she would benefit for aggres [...] intestine with complication 03/12/2012 ANDREW VINCENT MD [facility] [address] [place] [address] This assessment and plan was [...] might be different from the orig inal. 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 S he [...] TROPONIN Imaging No new Cultures BLOOD CULTURE [facility] (no units) Date Value Range Status [...] thrombosis while anticoagulated with warfarin transferred to [facility] from [facility] for management of retroperitoneal bleed. She is [...] know if she wants to see the [facility] GI team - Stage I pressure [...] recommending SONIAA since would be close to [facility] and she would benefit for aggres [...] intestine with complication 03/12/2012 ANDREW VINCENT MD [facility] [address] [place] [address] This assessment and plan was formulated [...] this note might be different from the [facility] Department of Surgery Progress Note Author: Andrew Vincent MD General Surgery Resident Attending Physician: Jf Wiseman MD GENERAL SURGERY Progress Note: Hospital Day #: 14 ATTENDING: fJ Wiseman MD Identification: Mackenzie Hartley is a 58 year old female with COPD, Crohn's disease, chronic pa in, and 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 S he [...] TROPONIN Imaging No new Cultures BLOOD CULTURE [facility] (no units) Date Value Range Status [...] thrombosis while anticoagulated with warfarin transferred to [facility] from [facility] for management of retroperitoneal bleed. She is [...] intestine with complication 03/12/2012 ANDREW VINCENT MD [facility] [address] [place] [address] This assessment and plan was formulated both [...] note might be different from the orig psychiatric hospital. 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 S he [...] TROPONIN Imaging No new Cultures BLOOD CULTURE [facility] (no units) Date Value Range Status [...] thrombosis while anticoagulated with warfarin transferred to [facility] from [facility] for management of retroperitoneal bleed. She is [...] continued DHT,TF - Diet: NPO - per ADVERTISING COPY WRITER, high risk of aspiration - continue ice [...] intestine with complication 03/12/2012 ANDREW VINCENT MD [facility] [address] [place] [address] This assessment and plan was formulated both [...] might be different from the orig inal. 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 S he [...] TROPONIN Imaging No new Cultures BLOOD CULTURE [facility] (no units) Date Value Range Status [...] thrombosis while anticoagulated with warfarin transferred to [facility] from [facility] for management of retroperitoneal bleed. She is [...] intestine with complication 03/12/2012 ANDREW VINCENT MD [facility] [address] [place] [address] This assessment and plan was [...] the resident s note. PHIL VARMA MD [facility] [address] [place] [address] Rosa Sauer MD - 05/04/2014 8:26 AM [...] at referring hospital. She was transferred to [facility] f or active hemorrhage and underwent [...] rounds. Rosa Reynoso, R2 SICU/Trauma Personal pager: [phone] Team pager: [phone] Angeles Acevedo MD - 05/04/2014 7:08 AM PST [facility] DEPARTMENT OF SURGERY EGS ICU Progress Note Division of Trauma and Critical Care ID: Mackenzie Hartley is a 58 year old female with COPD, Crohn's disease, chronic pain, and 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 while anticoagulated with warfarin transferre d to [facility] from [facility] for management of retroperitoneal bleed. She is [...] thrombosis while anticoagulated with warfarin transferred to [facility] from [facility] for management of retroperitoneal bleed. She has required repeated transfers to ICU for respiratory status. She has been diuresed ap propriately while in the ICU and O2 needs have decreased significantly. Will transfer to [facility] or, but need to keep a [...] Hannah MD General Surgery Resident, R3 Pager [phone] [facility] [place] [address] [address] [facility] [address] Jf Jones MD - 05/03/2014 9:38 AM [...] - TF at goal, + BM Dysphagia: ADVERTISING COPY WRITER following- remains NPO Anasarca: compression socks,. Goal [...] Call team 01/11 for questions: Team Pager [phone] ATTENDING ADDENDUM: I saw and examined Mackenzie [...] and exclusive of time sp ent by Erni Christensen PA-C. Jf Wiseman MD FACS funeral workers Division of Trauma, Critical Care, and Acute Care Surgery [id number] Elda Emmanuel MD - 05/03/2014 3:49 AM PST EMERGENCY GENERAL SURGERY ICU PROGRESS NOTE: Attending Physician: Jf Wiseman MD 05/03/2014 ID: Mackenzie Hartley is a 58 year old female with COPD, Crohn's disease, chronic pain, and coagulopa thy resulting in splenic artery thrombosis while anticoagulated with warfarin transferred to [facility] from [facility] for management of retroperitoneal bleed. She is [...] thrombosis while anticoagulated with warfarin transferred to [facility] from [facility] for management of retroperitoneal bleed. 1. Neuro: [...] this patient encounter. Elda Glez MD Pager [phone] Plastic Surgery R2 [facility] Diagnoses: 555.2 Crohn's disease of both [...] holding Q6W Remicade- will consult hematology in [facility] week regarding of timing of resuming remicade Severe malnutrition: - TF at goal, + BM, Dysphagia: ADVERTISING COPY WRITER following- remains NPO Anasarca: compression socks,. Goal [...] Call team 01/11 for questions: Team Pager [phone] ATTENDING ADDENDUM: I saw and examined Mackenzie [...] Marge Harris PA-C. Jf Wiseman MD FACS funeral workers Division of Trauma, Critical Care, and Acute Care Surgery [phone] GIAHarAngeles oglesby MD - 05/02/2014 6:55 AM PST [facility] DEPARTMENT OF SURGERY EGS ICU Progress Note Division of Trauma and Critical Care ID: Mackenzie Hartley is a 58 year old female with COPD, Crohn's disease, chronic pain, and 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 while anticoagulated with warfarin transferre d to [facility] from [facility] for management of retroperitoneal bleed. She is [...] thrombosis while anticoagulated with warfarin transferred to [facility] from [facility] for management of retroperitoneal bleed. Neuro: Minimize [...] Hannah MD General Surgery Resident, R3 Pager [phone] [place] [phone] arris, Angeles Hanna MD - 05/02/2014 2:14 [...] Hannah MD General Surgery Resident, R3 Pager [phone] ean-Claude Albrecht DMD, MD - 05/01/2014 10:36 AM PST [facility] DEPARTMENT OF SURGERY EGS Progress Note ID: Mackenzie Hartley is a 58 year old female with COPD, Crohn's disease, chronic pain, and 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 while anticoagulated with warfarin transferre d to [facility] from [facility] for management of retroperitoneal bleed. She is [...] thrombosis while anticoagulated with warfarin transferred to [facility] from [facility] for management of retroperitoneal bleed. Overall, she is improving. However, remains tachycardic with leukocytosis - WBC [address] 05/01 showed - moderate ascites and pleural effusions and hematoma. Neuro: dilaudid IV PRN Speech: following continue daily to eval swallow CV: HD stable L ENVIRONMENTAL PROTECTION OFFICER PSA resolved Continue IV lasix today 20 [...] acute care hospitalization Jean-Claude Albrecht D.M.D., M.D. [facility] [place] [address] [place] [address] Jf Jones MD - 04/30/2014 11:08 AM [...] at referring hospital. She was transferred to [facility] fo r active hemorrhage and underwent [...] malnutrition: - pulled DHT- refusing replacement. Await ADVERTISING COPY WRITER eval if passes swallow will give chance to prove adequate po intake. Expect will require TFs again Dysphagia: await ADVERTISING COPY WRITER eval today. Cont meds and feed via [...] Call team 01/11 for questions: Team Pager [phone] ATTENDING ADDENDUM: I saw and examined Mackenzie [...] Marge Harris PA-C. Jf Wiseman MD FACS funeral workers Division of Trauma, Critical Care, and Acute Care Surgery [phone] Angeles Acevedo MD - 04/30/2014 1:18 AM PST [facility] DEPARTMENT OF SURGERY EGS ICU Progress Note Division of Trauma and Critical Care ID: Mackenzie Hartley is a 58 year old female with COPD, Crohn's disease, chronic pain, and 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 while anticoagulated with warfarin transferre d to [facility] from [facility] for management of retroperitoneal bleed. She is [...] thrombosis while anticoagulated with warfarin transferred to [facility] from [facility] for management of retroperitoneal bleed. Overall, she is improving. However, remains tachycardic with leukocytosis -- difficult to t ease out if this is secondary to asplenia. Will obtain CT abd pelvis today to clarify. Neuro: dilaudid IV PRN and intermittent versed for sedation CV: HD stable L ENVIRONMENTAL PROTECTION OFFICER PSA resolved Pulm: titrate to O2 >92% [...] Hannah MD General Surgery Resident, R3 Pager [phone] [facility] [place] [address] [address] [facility] [address] Aravind Morales MD - 04/29/2014 11:43 AM PSTICU Attending: I saw and examined Mackenzie Hartley ([id number]) with Erin Christensen PA-C on 04/29/14 and [...] of time documented by Kaci Massey MD Senior Network Systems Engineer Trauma, Critical Care & Acute Care Surgery [...] at referring hospital. She was transferred to [facility] fo r active hemorrhage. Hospital Day [...] resolving cont current H2O via DHT Dysphagia: ADVERTISING COPY WRITER consulted, ice chips only. Cont meds and [...] Call team 01/11 for questions: Team Pager [phone] Chelly Blum MD,M PH - 04/28/2014 3:03 [...] at referring hospital. She was transferred to [facility] fo r active hemorrhage. Hospital Day [...] Hyernatremia: resolving, reduce H2O to 30ml/hr Dysphagia: ADVERTISING COPY WRITER consulted, ice chips only. Cont meds and [...] Call team 01/11 for questions: Team Pager [phone] Angeles Acevedo MD - 04/28/2014 5:18 AM PST [facility] DEPARTMENT OF SURGERY EGS ICU Progress Note Division of Trauma and Critical Care ID: Mackenzie Hartley is a 58 year old female with COPD, Crohn's disease, chronic pain, and 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 while anticoagulated with warfarin transferre d to [facility] from [facility] for management of retroperitoneal bleed. She is s/p ex lap, splenectomy, and packing with lap pads at OSH and from reopening of laparotomy, evacua tion of 2-3 L of intraabdominal hematoma, closure of open abdomen SUBJECTIVE: Extubated, neurologically doing much better. 3 L NC Underwent successful thrombin injection of L ENVIRONMENTAL PROTECTION OFFICER pseudoaneurysm by IR 04/26 MEDICATIONS: Current facility-administered [...] 0.45% IV infusion, 20 mL/hr, intravenous, CONTINUOUS, Snushine Jennings, Last Rate: 20 mL/hr at 04/27/141999, [...] thrombosis while anticoagulated with warfarin transferred to [facility] from [facility] for management of retroperitoneal bleed. Neuro: dilaudid IV PRN and intermittent versed for sedation CV: HD stable Per vascular: arterial duplex of L ENVIRONMENTAL PROTECTION OFFICER to assess for stability of PSA shows [...] Hannah MD General Surgery Resident, R3 Pager [phone] [facility] [place] [address] [place] [address] Xin Irizarry M D - 04/27/2014 11:55 [...] diagnosti c imaging and laboratory study results [facility] DEPARTMENT: [id number] - HEM FACULTY [facility] Place of Service: - Inpatient Date of Service: 04-27-2014 Modifiers: GC - Resident Involved Suggested CPT: 13871 - Initial, Comp; Mod complex 50 min XIN AGEE MD [facility] [address] [place] [address] wpriya Rudy Markham Adriel - 04/27/2014 11:55 AM PST Hematology Consult Progress Note Primary Service: EGS Primary Attending: Jf Wiseman MD Hospital Length of Stay: 4 Interval Events: - extubated - thrombin injection to ENVIRONMENTAL PROTECTION OFFICER pseudoaneurysm - heparin gtt started last night Subjective: Patient is unable to provide history as she remains encephalopathic. Did speak with her , who confirmed history obtained in initial heme consult note. States she givens s been on warfarin since her 2011 [facility] admission with no known thrombotic events [...] assessme nt and plan. Rudy Sarmiento, DO [facility] Internal Medicine PGY3 Pager [phone] Mirela Josue MD - 04/27/2014 10:49 AM PST [facility] Department of Surgery Progress Note Author: [...] underwent successful thrombin injection of the left ENVIRONMENTAL PROTECTION OFFICER pseudoaneurysm by IR last night. Heparin restarted [...] ultraso und guided thrombin injection of left ENVIRONMENTAL PROTECTION OFFICER pseudoanuerysm. Will order arterial duplex of left ENVIRONMENTAL PROTECTION OFFICER to assess for stability of pseudoaneurysm Monitor [...] hemorrhage vs HCAP LUCY MARKS MD [address] [place] [address] This assessment and plan was formulated both independently and in conjunction with the [facility] ular Surgery Team as well as the attending provider of record above regarding management of this patient and their medical issues. It is accurate to the best of my knowledge, and is s ubject to modification based on clinical developments, new data, or final imaging results. [facility] staff I saw and evaluated the patient. I agree with the findings and the plan of care as petern laxmi in the resident s note. Left femoral pseudoaneurysm appears resolved. Stable from [facility] standpoint. No further imaging required unless clinical status changes. Mirela Thompson M.D. [facility] Vascular Surgery [address] [address] [place] [address] Email: [email or web address] Jf Jones MD - 04/27/2014 [...] at referring hospital. She was transferred to [facility] fo r active hemorrhage. Hospital Day [...] H2O Hyernatremia: water 100ml/hr via DHT Dysphagia: ADVERTISING COPY WRITER consulted, ice chips only JULIANE: ATN from [...] Call team 01/11 for questions: Team Pager [phone] ATTENDING ADDENDUM: I saw and examined Mackenzie [...] Erin Christensen PA-C. Jf Wiseman MD FACS [employer] Division of Trauma, Critical Care, and Acute Care Surgery [id number] aElda tejada MD - 04/27/2014 4:52 AM PST EMERGENCY GENERAL SURGERY ICU PROGRESS NOTE: Attending Physician: Jf Wiseman MD 04/27/2014 ID: Mackenzie Hartley is a 58 year old female with COPD, Crohn's disease, chronic pain, and coagulopa thy resulting in splenic artery thrombosis while anticoagulated with warfarin transferred to [facility] from [facility] for management of retroperitoneal bleed. She is [...] HR EVENTS: - Incidentally found to have ENVIRONMENTAL PROTECTION OFFICER pseudoaneurysm, injected with thrombin by IR - [...] thrombosis while anticoagulated with warfarin transferred to [facility] from [facility] for management of retroperitoneal bleed. Neuro: oxy [...] this patient encounter. Elda Glez MD Pager [phone] Plastic Surgery R2 [facility] Diagnoses: 555.2 Crohn's disease of both [...] Attending:Dr. Lenny Calhoun MD (Fellow)/pager: Dr. Vang [phone] Medications Procedure Meds: Dilaudid IV 0.5mg Midazolam [...] at referring hospital. She was transferred to [facility] fo r active hemorrhage. Hospital Day [...] Call team 01/11 for questions: Team Pager [phone] Angeles Acevedo MD - 04/26/2014 5:24 AM PST [facility] DEPARTMENT OF SURGERY EGS ICU Progress Note Division of Trauma and Critical Care ID: Mackenzie Hartley is a 58 year old female with COPD, Crohn's disease, chronic pain, and 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 while anticoagulated with warfarin transferre d to [facility] from [facility] for management of retroperitoneal bleed. She is [...] ringers IV, 10 mL/hr, intravenous, CONTINUOUS, Marge aHrris PA-C, Last Rate: 10 mL/hr at 04/26/14 [...] thrombosis while anticoagulated with warfarin transferred to [facility] from [facility] for management of retroperitoneal bleed. Neuro: dilaudid [...] Hannah MD General Surgery Resident, R3 Pager [phone] [facility] [place] [address] [address] [facility] [phone] ithya Bailey MD - 04/25/2014 6:40 AM PSTTSICU Attending 04/25/14 58 yo woman critically ill with complex surgical and medical history, transferred to [facility] intraabdominal and retroperitoneal hemorrhage 2 days [...] Call team 01/11 for questions: Team Pager [phone] Angeles Acevedo MD - 04/25/2014 4:39 AM PST [facility] DEPARTMENT OF SURGERY EGS ICU Progress Note Division of Trauma and Critical Care ID: Maceknzie Hartley is a 58 year old female with COPD, Crohn's disease, chronic pain, and 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 while anticoagulated with warfarin transferre d to [facility] from [facility] for management of retroperitoneal bleed. She is [...] thrombosis while anticoagulated with warfarin transferred to [facility] from [facility] for management of retroperitoneal bleed. Neuro: dilaudid [...] Hannah MD General Surgery Resident, R3 Pager [phone] [facility] [place] [address] Rich Pappas MD - 04/24/2014 9:21 AM [...] extubate Initial surgical contact: Miladis at pager [phone] Nithya Andres MD - 04/24/2014 5:25 AM [...] exploration at referring hospital. IR embolization at [facility]. 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 She is [...] thrombosis while anticoagulated with warfarin transferred to [facility] from [facility] for management of retroperitoneal bleed. 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 LAB PORTABLE | Routin | 04/27/2014 | [...] | + + + + + | [facility] | [address] | [place] [address] | | | JANELL SHARP | BERTRAM [...] - MARILYN | [address] | [place], [place] | | | [facility] | [address] | [address] | | | TESTS | | | [...] [facility] | [address] | [place] [address] | | | SERVICES, CORE | PARK [...] [facility] | [address] | [place] [address] | | | SERVICES, CORE | PARK [...] | | | LABORATORY | | | MALTESE | | | SERVICES, | | | [...] + + + + + | [facility] | [address] | [place] [address] | | | SERVICES, JANELL | BERTRAM [...] - MARQUAM | [address] | [place], [place] | | | [facility] | [facility] | [address] | | | TESTS | | | [...] (H) | 60 - 99 mg/dL | [facility] - | | | GLUCOSE, | [...] MARILYN | [address] | [place], [place] | | | [facility] | [address] | [address] | | | TESTS | | | [...] [facility] | [address] | [place] [address] | | | SERVICES, CORE | [address] | | | + + + + + MAGNESIUM, PLASMA (05/12/2014 1:07 AM PST) + +---------+ + + + | Component | Value | Ref Range | Performed | Pathologist | | | | | At | Signature | + +---------+ + + + | MAGNESIUM,P | 1.5 (L) | 1.8 - 2.5 mg/dL | [facility] | | | LASMA | | | [...] + + + + + | [facility] | [address] | [place] [address] | | | SERVICES, CORE | BERTRAM [...] | | | LABORATORY | | | MALTESE | | | SERVICES, | | | [...] | + + + + + | [facility] | [address] | [place] [address] | | | JANELL SHARP | BERTRAM [...] | + + + + + | [facility] | [address] | [place] [address] | | | SERVICES, JANELL | BERTRAM [...] - MARQUAM | [address] | [place], [place] | | | [facility] | [address] | [address] | | | TESTS | | | [...] SANDERS | [address] | [place], [place] | | | [facility] | [address] | [address] | | | TESTS | | | [...] + | [facility] | [address] | [place] [address] | | | SERVICES, CORE | PARK [...] + + + + + | [facility] | [address] | [place] [address] | | | SERVICES, CORE | BERTRAM [...] | | | LABORATORY | | | MALTESE | | | SERVICES, | | | [...] the MDRD equation recommended by the | [facility] | | National Kidney Disease Education [...] [facility] | [address] | [place] [address] | | | SERVICES, CORE | PARK [...] + + + + + | [facility] | [address] | [place] [address] | | | SERVICES, JANELL | BERTRAM [...] (H) | 60 - 99 mg/dL | [facility] - | | | GLUCOSE, | [...] SANDERS | [address] | [place], [place] | | | [facility] | [facility] | [address] | | | TESTS | | | [...] SANDERS | [address] | [place], [place] | | | [facility] | [address] | [address] | | | TESTS | | | [...] | | + +---------+ + + | [facility] DEPARTMENT OF | | | | [...] MARILYN | [address] | [place], [place] | | | [facility] | [address] | [address] | | | TESTS | | | [...] (H) | 60 - 99 mg/dL | [facility] - | | | GLUCOSE, | [...] SANDERS | [address] | [place], [place] | | | [facility] | [address] | [address] | | | TESTS | | | [...] | + + + + + | [facility] | [address] | [place] [address] | | | SERVICES, CORE | PARK [...] + + + + + | [facility] | [address] | [place] [address] | | | SERVICES, CORE | BERTRAM [...] | | | LABORATORY | | | MALTESE | | | SERVICES, | | | [...] the MDRD equation recommended by the | [facility] | | National Kidney Disease Education [...] [facility] | [address] | [place] [address] | | | SERVICES, CORE | BERTRAM [...] [facility] | [address] | [place] [address] | | | ARON, JANELL | BERTRAM [...] (H) | 60 - 99 mg/dL | [facility] - | | | GLUCOSE, | [...] MARQUAM | [address] | [place], [place] | | | [facility] | [facility] | [address] | | | TESTS | | | [...] SANDERS | [address] | [place], [place] | | | [facility] | [address] | [address] | | | TESTS | | | [...] MARQUAM | [address] | [place], [place] | | | [facility] | [facility] | [address] | | | TESTS | | | [...] | + + + + + | [facility] | [address] | [place] [address] | | | SERVICES, CORE | BERTRAM [...] [facility] | [address] | [place] [address] | | | SERVICES, CORE | PARK [...] | | | LABORATORY | | | MALTESE | | | SERVICES, | | | [...] + + + + + | [facility] | [address] | [place] [address] | | | SERVICES, CORE | PARK [...] | + + + + + | [employer] | [address] | [place] [address] | | | SERVICES, CORE | BERTRAM [...] MARGOPIAM | [address] | [place], [place] | | | [facility] | [address] | [address] | | | TESTS | | | [...] MARILYN | [address] | [place], [place] | | | [facility] | [address] | [address] | | | TESTS | | | [...] [facility] | [address] | [place] [address] | | | SERVICES, CORE | PARK [...] | + + + + + | [facility] | [address] | [place] [address] | | | SERVICES, CORE | PARK [...] | | | LABORATORY | | | MALTESE | | | SERVICES, | | | [...] | + + + + + | [facility] [employer] | [address] | [place] [address] | | | SERVICES, JANELL | BERTRAM [...] | + + + + + | [facility] | [address] | [place] [address] | | | SERVICES, JANELL | BERTRAM [...] MARQUAM | [address] | [place], [place] | | | [facility] | [address] | [address] | | | TESTS | | | [...] (H) | 60 - 99 mg/dL | [facility] - | | | GLUCOSE, | [...] MARILYN | [address] | [place], [place] | | | [facility] | [address] | [address] | | | TESTS | | | [...] | + + + + + | [facility] | [address] | [place] [address] | | | SERVICES, CORE | PARK [...] + + + + + | [facility] | [address] | [place] [address] | | | SERVICES, CORE | PARK [...] | | | LABORATORY | | | MALTESE | | | SERVICES, | | | [...] the MDRD equation recommended by the | [facility] | | National Kidney Disease Education Program. [...] | + + + + + | [facility] | [address] | [place] [address] | | | JANELL SHARP | BERTRAM [...] | + + + + + | [facility] | [address] | [place] [address] | | | SERVICES, JANELL | BERTRAM [...] SANDERS | [address] | [place], [place] | | | [facility] | [address] | [address] | | | TESTS | | | [...] + + + + + | [facility] | [address] | [place] [address] | | | SERVICES, CORE | BERTRAM [...] MARQUAM | [address] | [place], [place] | | | [facility] | [address] | [address] | | | TESTS | | | [...] - DAVIDAM | [address] | [place], [place] | | | [facility] | [address] | [address] | | | TESTS | | | [...] [facility] | [address] | [place] [address] | | | SERVICES, CORE | PARK [...] LABORATORY | [address] | [place] [address] | | | SERVICES, CORE | PARK [...] | | | LABORATORY | | | MALTESE | | | SERVICES, | | | [...] | + + + + + | [employer] | [address] | [place] [address] | | | SERVICES, JANELL | BERTRAM [...] | + + + + + | [facility] | [address] | [place] [address] | | | JANELL SHARP | BERTRAM [...] + + + + + | [facility] | [address] | [place] [address] | | | SERVICES, CORE | PARK [...] | + + + + + | [facility] | [address] | [place] [address] | | | SERVICES, CORE | PARK [...] + + + + + | [facility] | [address] | [place] [address] | | | SERVICES, CORE | BERTRAM [...] | | | LABORATORY | | | MALTESE | | | SERVICES, | | | [...] the MDRD equation recommended by the | [facility] | | National Kidney Disease Education [...] | + + + + + | [facility] | [address] | [place] [address] | | | SERVICES, CORE | PARK [...] (H) | 0.90 - 1.20 INR | [facility] | | | | | | LABORATORY [...] | + + + + + | [facility] | [address] | [place] [address] | | | SERVICES, CORE | PARK [...] + + + + | [facility] | [address] | [place], [place] | | | [facility] | [address] | [address] | | + + + + + [...] + + + + + | [facility] | [address] | [place] [address] | | | SERVICES, CORE | PARK [...] + + + + + | [facility] | [address] | [place] [address] | | | SERVICES, CORE | BERTRAM [...] [facility] | [address] | [place] [address] | | | SERVICES, CORE | PARK [...] + + + + + | [facility] | [address] | [place] [address] | | | SERVICES, CORE | BERTRAM [...] | | | LABORATORY | | | MALTESE | | | SERVICES, | | | [...] the MDRD equation recommended by the | [facility] | | National Kidney Disease Education [...] | + + + + + | [facility] | [address] | [place] [address] | | | SERVICES, CORE | PARK [...] (H) | 0.90 - 1.20 INR | [facility] | | | | | | LABORATORY [...] [facility] | [address] | [place] [address] | | | SERVICES, CORE | PARK [...] + + + + + | [facility] | [address] | [place] [address] | | | SERVICES, CORE | BERTRAM [...] [facility] | [address] | [place] [address] | | | SERVICES, CORE | PARK [...] + | [facility] | [address] | [place] [address] | | | SERVICES, CORE | PARK [...] | + + + + + | [facility] | [address] | [place] [address] | | | SERVICES, CORE | BERTRAM [...] (H) | 60 - 99 mg/dL | [facility] - | | | GLUCOSE, | [...] + + + | [facility] | [address] | [place], [place] | | | [facility] | [address] | [address] | | | TESTS | | | [...] | | | | | signed / IMRELA | | | | | | DAMIAN Preliminary / | | | | | | Kirstie Ruffincourt | | | | + + + + + + + + | Specimen | + + | | + + + +---------+ + + | Performing | Address | City/State/Zipcode | Phone Number | | Organization | | | | + +---------+ + + | [facility] DEPARTMENT OF | | | | [...] [facility] | [address] | [place] [address] | | | ARON, JANELL | PARK [...] + + + + + | [facility] | [address] | [place] [address] | | | SERVICES, CORE | BERTRAM [...] | | | LABORATORY | | | MALTESE | | | SERVICES, | | | [...] | + + + + + | [facility] | [address] | [place] [address] | | | SERVICES, CORE | PARK [...] | + + + + + | [facility] | [address] | [place] [address] | | | SERVICES, CORE | [address] | | | + + + + + MAGNESIUM, PLASMA (05/02/2014 10:34 PM PST) + +-------+ + + + | Component | Value | Ref Range | Performed | Pathologist | | | | | At | Signature | + +-------+ + + + | MAGNESIUM,P | 2.0 | 1.8 - 2.5 mg/dL | [facility] | | | LASMA | | | [...] + + + + + | [facility] | [address] | [place] [address] | | | SERVICES, CORE | PARK [...] | | | LABORATORY | | | MALTESE | | | SERVICES, | | | [...] the MDRD equation recommended by the | [facility] | | National Kidney Disease Education Program. [...] | + + + + + | [facility] | [address] | [place] [address] | | | JANELL SHARP | BERTRAM [...] | | | LABORATORY | | | MALTESE | | | SERVICES, | | | [...] + + + + + | [facility] | [address] | [place] [address] | | | SERVICES, CORE | BERTRAM [...] [facility] | [address] | [place], [place] | | | THERAPY | [address] | [address] | | + + + + + [...] [facility] | [address] | [place], [place] | | | THERAPY | [address] | [address] | | + + + + + [...] + + + + + | [facility] | [address] | [place] [address] | | | SERVICES, CORE | BERTRAM [...] [facility] | [address] | [place] [address] | | | SERVICES, CORE | PARK [...] + + + + + | [facility] | [address] | [place] [address] | | | ARON, JANELL | BERTRAM [...] | | | LABORATORY | | | MALTESE | | | SERVICES, | | | [...] | + + + + + | [facility] | [address] | [place] [address] | | | SERVICES, CORE | PARK [...] [facility] | [address] | [place] [address] | | | SERVICES, CORE | BERTRAM [...] DEPT OF | [address] | [place], [place] | | | CARDIOLOGY | [address] | [address] | | + + + + + X-RAY PORTABLE CHEST 1 VIEW (05/02/2014 2:11 AM PST) + + + + + + | Component | Value | Ref Range | Performed | Pathologist | | | | | At | Signature | + + + + + + | X-RAY | EXAM: UT CHEST 1 VIEW | | | [...] | | + +---------+ + + | [facility] DEPARTMENT OF | | | | [...] | + + + + + | [facility] | [address] | [place] [address] | | | SERVICES, JANELL | BERTRAM [...] (H) | 60 - 99 mg/dL | [facility] - | | | GLUCOSE, | [...] SANDERS | [address] | [place], [place] | | | [facility] | [facility] | [address] | | | TESTS | | | [...] MARILYN | [address] | [place] | | | [facility] | [address] | [address] | | | TESTS | | | [...] + + + + + | [facility] | [address] | [place] [address] | | | SERVICES, JANELL | [address] | | | + + + + + X-RAY PORTABLE CHEST 1 VIEW (05/01/2014 3:37 AM PST) + + + + + + | Component | Value | Ref Range | Performed | Pathologist | | | | | At | Signature | + + + + + + | X-RAY | EXAM: UT CHEST 1 VIEW | | | [...] Bilateral | | | | | | [id number] | | | | | | pleural [...] | + + + + + | [facility] | [address] | [place] [address] | | | SERVICES, CORE | PARK [...] + + + + + | [facility] | [address] | [place] [address] | | | SERVICES, CORE | PARK [...] | | | LABORATORY | | | MALTESE | | | SERVICES, | | | [...] the MDRD equation recommended by the | [facility] | | National Kidney Disease Education Program. [...] | + + + + + | [facility] | [address] | [place] [address] | | | JANELL SHARP | BERTRAM [...] | + + + + + | [facility] | [address] | [place] [address] | | | SERVICESJANELL | [address] [...] SANDERS | [address] | [place] | | | [facility] | [address] | [address] | | | TESTS | | | [...] | | + +---------+ + + | [facility] DEPARTMENT OF | | | | [...] | | + +---------+ + + | [facility] DEPARTMENT OF | | | | [...] | | + +---------+ + + | [facility] DEPARTMENT OF | | | | [...] + + + + + | [facility] | [address] | [place] [address] | | | SERVICES, CORE | BERTRAM [...] + + + + + | [facility] | [address] | [place] [address] | | | SERVICES, CORE | BERTRAM [...] [facility] | [address] | [place] [address] | | | JANELL SHARP | BERTRAM [...] | | | LABORATORY | | | MALTESE | | | SERVICES, | | | [...] [facility] | [address] | [place] [address] | | | SERVICES, CORE | PARK [...] | | | LABORATORY | | | MALTESE | | | SERVICES, | | | [...] (H) | 4 - 11 mmol/L | [facility] | | | GAP(ALB | | [...] | + + + + + | [facility] [employer] | [address] | [place] [address] | | | SERVICES, CORE | BERTRAM [...] MARILYN | [address] | [place], [place] | | | [facility] | [facility] | [id number] | | | TESTS | | | [...] [facility] | [address] | [place] [address] | | | SERVICES, CORE | BERTRAM [...] + | [facility] | [address] | [place] [address] | | | SERVICES, CORE | PARK [...] | | | LABORATORY | | | MALTESE | | | SERVICES, | | | [...] | + + + + + | [facility] [employer] | [address] | [place] [address] | | | SERVICES, JANELL | BERTRAM [...] + + + + + | [facility] | [address] | [place] [address] | | | SERVICES, CORE | BERTRAM [...] | + + + + + | [facility] | [address] | [place] [address] | | | JANELL SHARP | BERTRAM [...] (H) | 60 - 99 mg/dL | [facility] - | | | GLUCOSE, | [...] [facility] | [address] | [place], [place] | | | [facility] | [address] | [address] | | | TESTS | | | [...] [facility] | [address] | [place] [address] | | | SERVICES, CORE | PARK [...] [facility] | [address] | [place] [address] | | | SERVICES, CORE | PARK [...] [facility] | [address] | [place] [address] | | | ARON, JANELL | BERTRAM [...] [facility] | [address] | [place] [address] | | | SERVICES, CORE | PARK [...] | | | LABORATORY | | | MALTESE | | | SERVICES, | | | [...] | + + + + + | [facility] [employer] | [address] | [place] [address] | | | SERVICES, CORE | BERTRAM [...] + + + + + | [facility] | [address] | [place] [address] | | | JANELL SHARP | BERTRAM [...] | + + + + + | [facility] | [address] | [place] [address] | | | SERVICES, CORE | PARK [...] | | + +---------+ + + | [facility] DEPARTMENT OF | | | | [...] + + + + + | [facility] | [address] | [place] [address] | | | SERVICES, JANELL | BERTRAM [...] + + + | [facility] | [address] | [place], [place] | | | [facility] | [address] | [address] | | | TESTS | | | | + + + + + X-RAY ABD LTD FEEDING TUBE EVAL PORTABLE (04/27/2014 10:33 AM PST) + + + + + + | Component | Value | Ref Range | Performed | Pathologist | | | | | At | Signature | + + + + + + | X-RAY ABD | STUDY: UT ABD LTD | | | | | [...] [facility] | [address] | [place] [address] | | | ARON, JANELL | PARK [...] + + + + + | [facility] | [address] | [place] [address] | | | SERVICES, CORE | BERTRAM [...] + + + + + | [facility] | [address] | [place] [address] | | | SERVICES, CORE | BERTRAM [...] [facility] | [address] | [place] [address] | | | SERVICES, CORE | BERTRAM [...] | | | LABORATORY | | | MALTESE | | | SERVICES, | | | [...] + + + + + | [facility] | [address] | [place] [address] | | | SERVICES, CORE | PARK [...] [facility] | [address] | [place] [address] | | | SERVICES, CORE | PARK [...] + + + + + | [facility] | [address] | [place] [address] | | | ARON, JANELL | BERTRAM [...] | + + + + + | [facility] | [address] | [place] [address] | | | SERVICES, JANELL | BERTRAM [...] + + + + + | [facility] | [address] | [place] [address] | | | SERVICES, CORE | BERTRAM [...] [facility] | [address] | [place] [address] | | | SERVICES, CORE | PARK [...] | | | LABORATORY | | | MALTESE | | | SERVICES, | | | [...] + + + + + | [facility] | [address] | [place] [address] | | | SERVICES, CORE | BERTRAM [...] PRIMARY | | | | | | [place]. COMMISSIONER: Rudy | | | | | | [...] [facility] | [address] | [place], [place] | | | [facility] | [address] | [address] | | | TESTS | | | [...] | | | | | | K[place]ie [place] | | | | + + + [...] | + + + + + | [facility] | [address] | [place] [address] | | | ARON, JANELL | BERTRAM [...] | | + +---------+ + + | [facility] DEPARTMENT OF | | | | [...] | + + + + + | [facility] | [address] | [place] [address] | | | SERVICES, CORE | BERTRAM [...] + + + + + | [facility] | [address] | [place] [address] | | | SERVICES, CORE | BERTRAM [...] + + + + + | [facility] | [address] | [place] [address] | | | JANELL SHARP | BERTRAM [...] | + + + + + | [facility] | [address] | [place] [address] | | | SERVICES, CORE | BERTRAM [...] + + + + + | [facility] | [address] | [place] [address] | | | SERVICES, CORE | PARK [...] | | | LABORATORY | | | MALTESE | | | SERVICES, | | | [...] the MDRD equation recommended by the | [facility] | | National Kidney Disease Education [...] | + + + + + | [facility] | [address] | [place] [address] | | | SERVICES, CORE | BERTRAM [...] [facility] | [address] | [place] [address] | | | SERVICES, CORE | PARK [...] | + + + + + | [facility] | [address] | [place] [address] | | | SERVICES, CORE | BERTRAM [...] (H) | 60 - 99 mg/dL | [facility] - | | | GLUCOSE, | [...] [facility] | [address] | [place], [place] | | | [facility] | [address] | [address] | | | TESTS | | | [...] | | | LABORATORY | | | MALTESE | | | SERVICES, | | | [...] the MDRD equation recommended by the | [facility] | | National Kidney Disease Education [...] + + + + + | [facility] | [address] | [place] [address] | | | JANELL SHARP | BERTRAM [...] (H) | 60 - 99 mg/dL | [facility] - | | | GLUCOSE, | [...] [facility] | [address] | [place], [place] | | | [facility] | [address] | [address] | | | TESTS | | | [...] [facility] | [address] | [place] [address] | | | SERVICES, CORE | PARK [...] + + + | [facility] | [address] | [place] [address] | | | ARON, JANELL | BERTRAM [...] + + + + | PRODUCT | [id number] | | [facility] | | | UNIT [...] + + + + | BLOOD | [id number] | | [facility] | | | PRODUCT [...] DEPARTMENT OF | [address] | [place] [address] | | | PATHOLOGY | [address] [...] + + + + | PRODUCT | [id number] | | [facility] | | | UNIT [...] + + + + | BLOOD | [id number] | | [facility] | | | PRODUCT [...] | + + + + + | [facility] DEPARTMENT OF | [address] | [place] [address] | | | PATHOLOGY | [address] [...] [facility] | [address] | [place] [address] | | | SERVICES, CORE | PARK [...] | + + + + + | [facility] | [address] | [place] [address] | | | SERVICES, CORE | BERTRAM [...] | | | LABORATORY | | | MALTESE | | | SERVICES, | | | [...] + | [facility] | [address] | [place] [address] | | | SERVICES, CORE | PARK [...] [facility] | [address] | [place] [address] | | | SERVICES, CORE | BERTRAM [...] + + + + + | [facility] | [address] | [place] [address] | | | SERVICES, CORE | PARK [...] [facility] | [address] | [place] [address] | | | SERVICES, CORE | PARK [...] | + + + + + | [facility] | [address] | [place] [address] | | | SERVICES, CORE | BERTRAM [...] + + + | [facility] | [address] | [place], [place] | | | [facility] | [address] | [address] | | | TESTS | | | [...] [facility] | [address] | [place], [place] | | | [facility] | [address] | [address] | | | TESTS | | | [...] + + + + + | [facility] | [address] | [place] [address] | | | SERVICES, JANELL | BERTRAM [...] + + + + + | [facility] | [address] | [place] [address] | | | SERVICES, JANELL | BERTRAM [...] | + + + + + | [facility] | [address] | [place] [address] | | | SERVICES, CORE | PARK [...] + + + + + | [facility] | [address] | [place] [address] | | | SERVICES, JANELL | BERTRAM [...] [facility] | [address] | [place] [address] | | | SERVICES, CORE | PARK [...] | | | LABORATORY | | | MALTESE | | | SERVICES, | | | [...] + + + + + | [facility] | [address] | [place] [address] | | | SERVICES, JANELL | BERTRAM [...] | + + + + + | [facility] | [address] | [place] [address] | | | SERVICES, CORE | PARK [...] | + + + + + | [facility] | [address] | [place] [address] | | | JANELL SHARP | PARK [...] RESPIRATORY | [address] | [place], [place] | | | THERAPY | [address] | [address] | | + + + + + [...] [facility] | [address] | [place], [place] | | | THERAPY | [address] | [address] | | + + + + + [...] | | | LABORATORY | | | MALTESE | | | SERVICES, | | | [...] + + + + + | [facility] | [address] | [place] [address] | | | SERVICES, CORE | BERTRAM [...] | + + + + + | [facility] | [address] | [place] [address] | | | SERVICES, JANELL | BERTRAM [...] | + + + + + | [facility] | [address] | [place] [address] | | | SERVICES, CORE | PARK [...] (L) | 36.0 - 46.0 % | [facility] | | | | | | LABORATORY [...] [facility] | [address] | [place] [address] | | | SERVICES, CORE | PARK [...] [facility] | [address] | [place] [address] | | | SERVICES, CORE | PARK [...] | + + + + + | [facility] | [address] | [place] [address] | | | SERVICES, CORE | PARK [...] + + + + + | [facility] | [address] | [place] [address] | | | SERVICES, CORE | PARK [...] | | | LABORATORY | | | MALTESE | | | SERVICES, | | | [...] the MDRD equation recommended by the | [facility] | | National Kidney Disease Education [...] | + + + + + | [facility] | [address] | [place] [address] | | | SERVICES, CORE | BERTRAM [...] + + + + + | [facility] | [address] | [place] [address] | | | SERVICES, CORE | BERTRAM [...] [facility] | [address] | [place], [place] | | | [facility] | [address] | [address] | | | TESTS | | | [...] PRIMARY | | | | | | U.S. COMMISSIONER: Rudy | | | | | | [...] 5 | | | | | | Danish vascular sheath | | | | | [...] | | | | for a 5 Danish | | | | | | IMAcatheter. [...] | | | | artery. A 3 Danish | | | | | | microcatheterwas [...] DEPT OF | [address] | [place], [place] | | | CARDIOLOGY | [address] | [address] | | + + + + + [...] + + + + | PRODUCT | [id number] | | [facility] | | | UNIT [...] + + + + | BLOOD | [id number] | | [facility] | | | PRODUCT [...] DEPARTMENT OF | [address] | [place], [place] [address] | | | PATHOLOGY | [address] [...] + + + + | PRODUCT | [id number] | | [facility] | | | UNIT [...] + + + + | BLOOD | [id number] | | [facility] | | | PRODUCT [...] DEPARTMENT OF | [address] | [place] [address] | | | PATHOLOGY | [address] [...] + + + + | PRODUCT | [id number] | | [facility] | | | UNIT [...] + + + + | BLOOD | [id number] | | [facility] | | | PRODUCT [...] DEPARTMENT OF | [address] | [place], [place] [address] | | | PATHOLOGY | [address] [...] + + + + | PRODUCT | [id number] | | [facility] | | | UNIT [...] + + + + | BLOOD | [id number] | | [facility] | | | PRODUCT [...] | + + + + + | [facility] | [address] | [place] [address] | | | PATHOLOGY | [address] [...] + + + + | PRODUCT | [id number] | | [facility] | | | UNIT [...] + + + + | BLOOD | [id number] | | [facility] | | | PRODUCT [...] DEPARTMENT OF | [address] | [place] [address] | | | PATHOLOGY | [address] [...] + + + + | PRODUCT | [id number] | | [facility] | | | UNIT [...] + + + + | BLOOD | [id number] | | [facility] | | | PRODUCT [...] | + + + + + | [facility] DEPARTMENT | [address] | [place] [address] | | | PATHOLOGY | [address] | | | + + + + + X-RAY PORTABLE CHEST 1 VIEW (04/23/2014 11:41 AM PST) + + + + + + | Component | Value | Ref Range | Performed | Pathologist | | | | | At | Signature | + + + + + + | X-RAY | EXAM: UT CHEST 1 VIEW | | | [...] + + + + | PRODUCT | [id number] | | [facility] | | | UNIT [...] + + + + | BLOOD | [id number] | | [facility] | | | PRODUCT [...] DEPARTMENT OF | [address] | [place] [address] | | | PATHOLOGY | [address] [...] + + + + | PRODUCT | [id number] | | [facility] | | | UNIT [...] + + + + | BLOOD | [id number] | | [facility] | | | PRODUCT [...] | + + + + + | [facility] | [address] | [place] [address] | | | PATHOLOGY | [address] [...] + + + + | PRODUCT | [id number] | | [facility] | | | UNIT [...] + + + + | BLOOD | [id number] | | [facility] | | | PRODUCT [...] DEPARTMENT OF | [address] | [place] [address] | | | PATHOLOGY | [address] [...] + + + + | PRODUCT | [id number] | | [facility] | | | UNIT [...] + + + + | BLOOD | [id number] | | [facility] | | | PRODUCT [...] | + + + + + | [facility] | [address] | [place] [address] | | | PATHOLOGY | [address] [...] + + + + | PRODUCT | [id number] | | [facility] | | | UNIT [...] + + + + | BLOOD | [id number] | | [facility] | | | PRODUCT [...] DEPARTMENT OF | [address] | [place] [address] | | | PATHOLOGY | [address] [...] + + + + | PRODUCT | [id number] | | [facility] | | | UNIT [...] + + + + | BLOOD | [id number] | | [facility] | | | PRODUCT [...] | + + + + + | [facility] | [address] | [place] [address] | | | PATHOLOGY | [address] [...] + + + + | PRODUCT | [id number] | | [facility] | | | UNIT [...] + + + + | BLOOD | [id number] | | [facility] | | | PRODUCT [...] DEPARTMENT OF | [address] | [place] [address] | | | PATHOLOGY | [address] [...] + + + + | PRODUCT | [id number] | | [facility] | | | UNIT [...] + + + + | BLOOD | [id number] | | [facility] | | | PRODUCT [...] | + + + + + | [facility] | [address] | [place] [address] | | | PATHOLOGY | [address] [...] + + + + | PRODUCT | [id number] | | [facility] | | | UNIT [...] + + + + | BLOOD | [id number] | | [facility] | | | PRODUCT [...] DEPARTMENT OF | [address] | [place] [address] | | | PATHOLOGY | [address] [...] + + + + | PRODUCT | [id number] | | [facility] | | | UNIT [...] + + + + | BLOOD | [id number] | | [facility] | | | PRODUCT [...] | + + + + + | [facility] | [address] | [place] [address] | | | PATHOLOGY | [address] [...] + + + + | PRODUCT | [id number] | | [facility] | | | UNIT [...] + + + + | BLOOD | [id number] | | [facility] | | | PRODUCT [...] DEPARTMENT OF | [address] | [place] [address] | | | PATHOLOGY | [address] [...] + + + + | PRODUCT | [id number] | | [facility] | | | UNIT [...] + + + + | BLOOD | [id number] | | [facility] | | | PRODUCT [...] | + + + + + | [facility] | [address] | [place] [address] | | | PATHOLOGY | [address] [...] + + + + | PRODUCT | [id number] | | [facility] | | | UNIT [...] + + + + | BLOOD | [id number] | | [facility] | | | PRODUCT [...] DEPARTMENT OF | [address] | [place] [address] | | | PATHOLOGY | [address] [...] + + + + | PRODUCT | [id number] | | [facility] | | | UNIT [...] + + + + | BLOOD | [id number] | | [facility] | | | PRODUCT [...] | + + + + + | [facility] | [address] | [place] [address] | | | PATHOLOGY | [address] [...] [facility] | [address] | [place] [address] | | | SERVICES, JANELL | BERTRAM [...] [facility] | [address] | [place] [address] | | | SERVICES, CORE | PARK [...] + + + + + | [facility] | [address] | [place] [address] | | | SERVICES, [facility] | [address] | | | + [...] | | | LABORATORY | | | MALTESE | | | SERVICES, | | | [...] [facility] | [address] | [place] [address] | | | SERVICES, CORE | PARK [...] [facility] | [address] | [place] [address] | | | SERVICES, CORE | PARK [...] [facility] | [address] | [place] [address] | | | SERVICES, CORE | PARK [...] | + + + + + | [facility] | [address] | [place] [address] | | | JANELL SHARP | [address] | | | + + + + + CAPILLARY BLOOD GLUCOSE (NO CHG), POC (04/23/2014 11:02 AM PST) + +-------+ + + + | Component | Value | Ref Range | Performed | Pathologist | | | | | At | Signature | + +-------+ + + + | BLOOD | 89 | 60 - 99 mg/dL | [facility] - | | | GLUCOSE, | [...] [facility] | [address] | [place], [place] | | | [facility] | [address] | [address] | | | TESTS | | | [...] + + + + + | [facility] | [address] | [place] [address] | | | SERVICES, | [address] [...] [facility] | [address] | [place] [address] | | | SERVICES, | [address] [...] + + + + | PRODUCT | [id number] | | [facility] | | | UNIT [...] + + + + | BLOOD | [id number] | | [facility] | | | PRODUCT [...] | + + + + + | [facility] | [address] | [place] [address] | | | PATHOLOGY | [address] [...] + + + + | PRODUCT | [id number] | | [facility] | | | UNIT [...] + + + + | BLOOD | [id number] | | [facility] | | | PRODUCT [...] DEPARTMENT OF | [address] | [place] [address] | | | PATHOLOGY | [address] [...] + + + + | PRODUCT | [id number] | | [facility] | | | UNIT [...] + + + + | BLOOD | [id number] | | [facility] | | | PRODUCT [...] | + + + + + | [facility] | [address] | [place] [address] | | | PATHOLOGY | [address] [...] + + + + | PRODUCT | [id number] | | [facility] | | | UNIT [...] + + + + | BLOOD | [id number] | | [facility] | | | PRODUCT [...] DEPARTMENT OF | [address] | [place] [address] | | | PATHOLOGY | [address] [...] + + + + | PRODUCT | [id number] | | [facility] | | | UNIT [...] + + + + | BLOOD | [id number] | | [facility] | | | PRODUCT [...] | + + + + + | [facility] | [address] | [place] [address] | | | PATHOLOGY | [address] [...] + + + + | PRODUCT | [id number] | | [facility] | | | UNIT [...] + + + + | BLOOD | [id number] | | [facility] | | | PRODUCT [...] | + + + + + | [facility] | [address] | [place] [address] | | | PATHOLOGY | [address] [...] | | | | | modification) on [facility] 05/02/14 at | | | | [...] | | | | ONCE, 1 dose, [facility] 04/25/14 at | | AM PST [...] | | | | | modification) on [facility] 05/02/14 at | | | | [...] | | | | | dose on [facility] 05/02/14 at 0530, | | | [...] PST | | | | | Starting [facility] 05/02/14 at 0704, | | | | [...] | | | tube, ONCE, 1 dose, [facility] 04/25/14 | | PM PST | [...] | | | tube, ONCE, 1 dose, [facility] 05/01/14 | | AM PST | [...] | | | | | modification) on [facility] 04/27/14 at | | | | | [...]
--- OUTSIDE RECORDS SUMMARY | ~2019-11-03 | XMS | Encounter Summary ---
Demographics + + + | Address | [address] | | | [place] [address] | + + + | Home Phone [...] Team Providers + +------+ + | Care Process Development Chemist Name | Role | Phone | + +------+ + | No, Physician | PCP | Unavailable | + +------+ + Reason for Visit +--------+--------+ + | Reason | Onset | Comments | | | Date | | +--------+--------+ + | Ostomy | 08/26/ | | | | 2020 | | +--------+--------+ + Encounter Details +--------+ + + + + | Date | Type | Department | Care Team | Description | +--------+ + + + + | 08/26/ | Telephone | [facility] | Davina Jackson, | Ostomy | | 2019 | | CENTER OUTPATIENT | RN | | | | | WOUND CARE [address] | | | | | | [place] | | | | | | [address] | | | | | | [phone] | | | +--------+ + + + [...] this encounter Miscellaneous Notes Telephone Encounter - Davina Jackson RN - 08/27/2019 8:50 AM [facility] received a [place] Elian Chang [place] He states they need a new order for ostomy suppli es in order to ship supplies. We have not seen this patient since 2018. I recommended he f ax paperwork to Dr. Bocanegra's office at [phone] for signature. Called Angelique at Dr. Hilario harrison's office and left voice message with this information. documented in this encounter Plan of Treatment [...]
--- OUTSIDE RECORDS SUMMARY | ~2019-11-03 | XMS | Encounter Summary ---
Demographics + + + | Address | [address] | | | [place] [address] | + + + | Home Phone | | + + + | Preferred Language | Unknown | + + + | Marital Status | | + + + | Taoist Affiliation | Unknown | + + + | Race | Unknown | + + + | Ethnic Group | Unknown | + + + Author + + + | Author | [facility] | | | and [place] | + + + | Organization | [facility] | | [...] Team Providers + +------+ + | Care Table Assembler Name | Role | Phone | + +------+ + PCP | Unavailable | + +------+ + Encounter Details +--------+ + + + + | Date | Type | Department | Care Team | Description | +--------+ + + + + | 10/09/ | Hospital | [facility] | Conversion | | | 2016 | Encounter | [facility] | Transaction, | | | | | CLINIC [address] | Provider Unknown | | | | | [place], [place] | | | | | | [address] | (Fax) | | | | | [phone] | | | +--------+ + + + [...] Procedure Notes Conversion Transaction, Provider Unknown - 10/10/2015 7:05 PM PDTFormatting of this note m ight be different from the original. Pre-Procedure Instructions by Michael Francis RN at 10/10/151904 Author: Michael Francis RN Service: (none) Author Type: Registered Nurse Filed: 10/10/151905 Date of Service: 10/10/151904 Status: Signed Entry Analyst: Michael Francis RN (Registered Nurse) HGB 9.2/Platelets [address] Adams. No further recommendations. onver roshan Transaction, Provider Unknown - 10/10/2015 5:15 PM PDT Pre-Procedure Instructions by Laine Bryant RN at 10/10/151714 Author: Laine Bryant RN Service: (none) Author Type: Registered Nurse Filed: 10/10/151715 Date of Service: 10/10/151714 Status: Signed Entry Analyst: Laine Bryant RN (Registered Nurse) Called and spoke to Dr. Veliz anesthesia re: her chest xray. She states via telephone, may proceed with planned surgery onver roshan Transaction, Provider Unknown - 10/10/2015 2:40 PM PDT Pre-Procedure Instructions by Laine Bryant RN at 10/10/15 1440 Author: Laine Bryant RN Service: (none) Author Type: Registered Nurse Filed: 10/10/15 1449 Date of Service: 10/10/151439 Status: Addendum Entry Analyst: Laine Bryant RN (Registered Nurse) Related Notes: Original Note by Laine Bryant RN (Registered Nurse) filed at 10/10/15 1441 AHA guidelines for non cardiac, non emergent surgery followed. METS score greater than 4. D oes not see a circuit board repair technician. Denies any chest pain, SOB, or any other cardiac symptoms. She s tates she tries to walk several times a week when she can. She has chronic knee pain. Pt sta petros that she was instructed by PCP to stop warfarin 5 days prior to surgery and that there w ill be no bridging with lovenox. Pt has not stopped yet so PT will be done day of surgery pe r anesthesia protocol. Pt goes to [facility]madin clinic where she lives in [place], [place]. Pt beth he is present during interview and stated he is concerned for how she is acting right now. He states she does not want to eat and sleeps all the time. Pt denies any abdominal pain, feve r, nausea today. Pt affect is very flat and she states she doesn't feel very hopeful right n ow. She is very concerned this surgery won't work or that she will have complications. Advis ed pt to make appt. With PCP russell to address her flat affect. She states understanding and s marianne she will call her PCP when she gets home docume nted in this encounter Plan of [...] | ECG 12 LEAD | Routin | 10/10/2015 | | Results for this | | | e | 2:04 PM | | procedure are in the [...] Conversion - 11/23/2018 9:20 PM PDT MACKENZIE [id number] years FemaleXR | | CHEST 2 VIEW [...] | | | | | | at [facility];[address] [place] [address] | | | | | | Blvd;[place] [address] | | | | + + + [...] [place] | | | | | | [address] | | | | + + +---- + + + | Non- | 4.44Comment: Testing | 3.7 0 - 5.10 | EXTERNAL | | | Red Blood | performed at [facility], [address] | M/u L | LAB | | | Cells | [facility] [place], | | | | | [place] | [place] [address] | | | | + + +---- + + + | Hemoglobin | 9.2 (L)Comment: Testing | 11. 3 - 15.5 | EXTERNAL | | | | performed at [facility], [address] | g/d L | LAB | | | | [place], | | | | | | [place] [address] | | | | + + +---- + + + | Hematocrit, | 33.1 (L)Comment: RESULT | 34. 0 - 46.0 % | EXTERNAL | | | POC | VERIFIEDTesting | | LAB | | | | performed at [facility], [address] | | | | | | [place], | | | | | | [place] [address] | | | | + + +---- + + + | MCV | 74.6 (L)Comment: Testing | 80. 0 - 100.0 fl | EXTERNAL | | | | performed at [facility], [address] | | LAB | | | | [address] [place], | | | | | | [place] [address] | | | | + + +---- + + + | MCH | 20.7 (L)Comment: Testing | 27. 0 - 34.0 pg | EXTERNAL | | | | performed at [facility], [address] | | LAB | | | | [address] [place], | | | | | | [place] [address] | | | | + + +---- + + + | MCHC | 27.7 (L)Comment: Testing | 32. 0 - 35.5 | EXTERNAL | | | | performed at [facility], [address] | g/d L | LAB | | | | [address] [place], | | | | | | [place] [address] | | | | + + +---- + + + | RDW-CV | 62.6 (H)Comment: Testing | 37 - 53 fl | EXTERNAL | | | | performed at [facility], [address] | | LAB | | | | [address] [place], | | | | | | [place] [address] | | | | + + +---- + + + | Platelet | 538 (H)Comment: Testing | 150 - 400 K/uL | EXTERNAL | | | Count | performed at [facility], [address] | | LAB | | | Plasma | [place], | | | | | | [place] [address] | | | | + + +---- + + + | MPV | 7.9Comment: Testing | fl | EXTERNAL | | | | performed at [facility], [address] | | LAB | | | | [place], | | | | | | [place] [address] | | | | + + +---- + + + | Differentia | MANUALComment: Testing | | EXTERNAL | | | l Type | performed at [facility], [address] | | LAB | | | | [place], | | | | | | [place] [address] | | | | + + +---- + + + | Nucleated | 4 (H)Comment: Testing | /10 0WBC | EXTERNAL | | | Red Blood | performed at [facility], [address] | | LAB | | | Cells | [place], | | | | | | [place] [address] | | | | + + +---- + + + | Segmented | 59Comment: Testing | % | EXTERNAL | | | Neutrophils | performed at [facility], [address] | | LAB | | | Manual | [place], | | | | | | [place] [address] | | | | + + +---- + + + | % Bands | 1Comment: Testing | % | EXTERNAL | | | | performed at [facility], [address] | | LAB | | | | [place], | | | | | | [place] [address] | | | | + + +---- + + + | Lymphocytes | 33Comment: Testing | % | EXTERNAL | | | Manual | performed at [facility], [address] | | LAB | | | | [place], | | | | | | [place] [address] | | | | + + +---- + + + | Monocytes | 7Comment: Testing | % | EXTERNAL | | | Manual | performed at [facility], [address] | | LAB | | | | [place], | | | | | | [place] [address] | | | | + + +---- + + + | Absolute | 11.45 (H)Comment: | 1.9 0 - 7.40 | EXTERNAL | | | Neutrophils | Testing performed at | K/u L | LAB | | | | [facility], [address] | | | | | | [place] | | | | | | [address] | | | | + + +---- + + + | Bands | 0.19Comment: Testing | 0.0 0 - 0.20 | EXTERNAL | | | Manual | performed at [facility], [address] | K/u L | LAB | | | | [place], | | | | | | [place] [address] | | | | + + +---- + + + | Absolute | 6.40 (H)Comment: Testing | 1.0 0 - 3.90 | EXTERNAL | | | Lymphocytes | performed at [facility], [address] | K/u L | LAB | | | | [address] [place] [place], | | | | | | [place] [address] | | | | + + +---- + + + | Absolute | 1.36 (H)Comment: Testing | 0.0 0 - 0.80 | EXTERNAL | | | Monocytes | performed at [facility], [address] | [address] | LAB | | | | [address], | | | | | | [place] [address] | | | | + + +---- + + + | Platelet | INCREASEDComment: | | EXTERNAL | | | Estimate | Testing performed at | | LAB | | | | [facility], [address] | | | | | | [place], [place] | | | | | | [address] | | | | + + +---- + + + | RBC | 2+Comment: | | EXTERNAL | | | Morphology | ANISO1+POIK1+POLY3+HYPO2 | | LAB | | | | +MICRO1+TARGETNORMAL PLT | | | | | | MORPHTesting performed | | | | | | at [facility], [address] | | | | | | [place], | | | | | | [place] [address] | | | | | |3+ | | | | | |HYPO | | | | | |2+ | | | | | |MICRO | | | | | |1+ | | | | | |TARGET | | | | | |NORMAL PLT MORPH | | | | | |Testing performed at [facility], [address] [place] [address] [place], [place] [address] | | | | | | | | | | + + +---- + + + | Differentia | SLIDE REFERRED TO | | EXTERNAL | | | l Comments | PATHOLOGIST FOR REVIEW | | LAB | | | | AND COMMENTComment: | | | | | | Testing performed at | | | | | | [facility], [address] [place] [address] | | | | | | [place] | | | | | | [address] | | | | + + +---- [...] LAB | | | | performed at [facility], [address] | | | | | | [place], | | | | | | [place] [address] | | | | + + + + + + | K | 4.7Comment: SPECIMEN | 3.5 - 4.9 | EXTERNAL | | | | SLIGHTLY | mmol/L | LAB | | | | HEMOLYZEDTesting | | | | | | performed at [facility], [address] | | | | | | [address], | | | | | | [place] [address] | | | | + + + + + + | Cl | 109Comment: Testing | 99 - 109 mmol/L | EXTERNAL | | | | performed at [facility], [address] | | LAB | | | | [address], | | | | | | [place] [address] | | | | + + + + + + | CO2 | 23Comment: Testing | 23 - 32 mmol/L | EXTERNAL | | | | performed at [facility], [address] | | LAB | | | | [address], | | | | | | [place] [address] | | | | + + + + + + | Anion Gap | 13Comment: Testing | 5 - 20 mmol/L | EXTERNAL | | | | performed at [facility], [address] | | LAB | | | | [address], | | | | | | [place] [address] | | | | + + + + + + | Glucose, | 89Comment: SPECIMEN | 65 - 99 mg/dL | EXTERNAL | | | Fasting | SLIGHTLY | | LAB | | | | HEMOLYZEDTesting | | | | | | performed at [facility], [address] | | | | | | [address], | | | | | | [place] [address] | | | | + + + + + + | BUN | 21Comment: Testing | 8 - 25 mg/dL | EXTERNAL | | | | performed at [facility], [address] | | LAB | | | | [address], | | | | | | [place] [address] | | | | + + + + + + | Creatinine | 0.9Comment: SPECIMEN | 0.50 - 1.00 | EXTERNAL | | | | SLIGHTLY | mg/dL | LAB | | | | HEMOLYZEDTesting | | | | | | performed at [facility], [address] | | | | | | [address], | | | | | | [place] [address] | | | | + + + + + + | BUN/Creatin | 23Comment: Testing | | EXTERNAL | | | ine Ratio | performed at [facility], [address] | | LAB | | | | [address], | | | | | | [place] [address] | | | | + + + + + + | Calcium | 9.0Comment: Testing | 8.5 - 10.5 | EXTERNAL | | | | performed at [facility], [address] | mg/dL | LAB | | | | [address], | | | | | | [place] [address] | | | | + + + [...] [place], | | | | | | [place] [address] | | | | + + + [...] + +---------+ + + ECG 12 lead (10/10/2015 2:04 PM PDT) + + + + + + | Component | Value | Ref Range | Performed | Pathologist | | | | | At | Signature | + + + + + + | DIAGNOSIS: | Normal sinus | | EXTERNAL | | | | rhythmNonspecific ST and | | LAB | | | | T wave | | | | | | abnormalityAbnormal | | | | | | ECGWhen compared with | | | | | | ECG of 22-APR-2014 | | | | | | 11:11,Vent. rate has | | | | | | decreased BY 65 BPMQRS | | | | | | duration has increasedT | | | | | | waves now inverted in | | | | | | V2 Confirmed by Tr, | | | | | | Sandoval ([id number]) on | | | | | | 10/10/2015 10:15:55 PM | | | | + + + + + + + + | Specimen | + + | | + + + + + | Narrative | Performed At | + + + | Historically converted procedure from [facility] Epic environment | EXTERNAL LAB | + + + + +---------+ + + | Performing | Address | City/State/Zipcode | Phone Number | | Organization | | | | + +---------+ + + | EXTERNAL LAB | | | | + +---------+ + + documented in this encounter Visit Diagnoses Not on filedocumented in this encounter
--- OUTSIDE RECORDS SUMMARY | ~2019-11-03 | XMS | Encounter Summary ---
Demographics + + + | Address | [address] | | | [place] [address] | + + + | Home Phone [...] Providers + +------+ + | Care Court Liaison Name | Role | Phone | + +------+ + PCP | Unavailable | + +------+ + Encounter Details +--------+ + + + + | Date | Type | Department | Care Team | Description | +--------+ + + + + | 10/09/ | Hospital | [facility] | Conversion | | | 2016 | Encounter | [facility] | Transaction, | | | | | [address] | Provider Unknown | | | | | [place], [place] | | | | | | [address] | (Fax) | | | | | [phone] | | | +--------+ + + + [...]
--- OUTSIDE RECORDS SUMMARY | ~2019-11-03 | XMS | Encounter Summary ---
Demographics + + + | Address | [address] | | | [place] [address] | + + + | Home Phone | | + + + | Preferred Language | Unknown | + + + | Marital Status | | + + + | Mosque Affiliation | NRP | + + + | Race | White | + + + | Ethnic Group | Not or | + + + Author + + + | Author | [facility] | + + + | Organization | [facility] | + + + | Address | Unknown | + + + | Phone | Unavailable | + + + Support + + + + + | Name | Relationship | Address | Phone | + + + + + | Kole Willingham | [place] | [address] | | | | | [place], [place] | | | | | [address] | | + + + + + | Cami [place] | ECON | Unknown | | + + + + + Care Team Providers + +------+ + | Care Corn Sheller Operator Name | Role | Phone | [...] | | fistula | Kristen Rubio | [facility] | | | | | Procedures | [place], [place] | [facility] and | | | | | CONSULT TO | [address] | Healing, | | | | | GI PROCEDURE | Phone: | [address] | | | | | UNIT: | [phone] | [place], [place] | | | | | FLEXIBLE | Fax: | [address] | | | | | SIGMOIDOSCOP | [phone] | Phone: | | | | | [place] | | [phone] | | | | | SIGMOIDOSCOP | | Fax: | | | | | Y,BIOPSY | | [phone] | +--------+--------+ + + + + Reason [...] tests | | 2016 | | [place] [address] [address] | [address] [facility] | | | | | [facility] | Kristen Rubio [place], | | | | | [facility] and | [place] [address] | | | | | [facility] [address] | [phone] | | | | | [place], [place] | | | | | | [address] | | | | | | [phone] | | | +--------+ + + + [...]
--- OUTSIDE RECORDS SUMMARY | ~2019-11-03 | XMS | Clinical Summary ---
Demographics + + + | Address | [address] | | | [place] [address] | + + + | Home Phone [...] Team Providers + +------+ + | Care Pressroom Supervisor Name | Role | Phone | [...] 2 (two) times daily. | | | 20 | | e | | capsule | [...] Overview: Added automatically from request for surgery [id number] | + + + + + | [...] | Stricture esophagus dilated with bougue 20 nicaraguan 04/21/2014 | 04/22/2014 | + + + [...] | Pyelonephritis | | + + + Encounters +--------+ + + + + | Date | Type | Specialty | Care Team | Description | +--------+ + + + + | 08/26/ | Telephone | Wound Care | Davina Jackson, | Ostomy | | 2019 | | | RN | | +--------+ + + + + from Last 3 Months Immunizations + + + + | Name [...] Health Maintenance | Due Date | Last | Comments | | | | Done | | + + + + + | Medication | | | | | Management | 6 | | | + + [...] | + + + + + | Med Mgmt: Cr | | 03/11/20 | | | | 8 | 17, | | | | | 03/10/20 | | | | | 17, | | | | | 03/09/20 | | | | | 17, | | | | | Addition | | | | | al | | | | | history | | | | | exists | | + + + + + | Med Mgmt: eGFR | | 03/11/20 | | | | 8 | 17, | | | | | 03/10/20 | | | | | 17, | | | | | 03/09/20 | | | | | 17, | | | | | Addition | | | | | al | | | | | history | | | | | exists | | + + + + + | Adult Annual | | | | | Wellness Visit | 9 | | | + + + + + | Statin Therapy | | | | | (optimal intensity) | 9 | | | + + + + + | Vaccine: Influenza | | 01/31/20 | | | (#1) | 0 | 19, | | | | | 01/14/20 | | | | | 17, | | | | | 04/14/19 | | | | | 15 | | + + + + + | Vaccine: | Completed | 04/14/19 | | | Pneumococcal 19-64 | | 15 | | + + + + + | Hepatitis C | Completed | 04/20/19 | | | Screening | | 15 | | + + [...] | | + + + + + Insurance + +--------+ [...] +--------+ +---------+--------+ | MEDICARE | MEDICA | [id number] | 04/11/19 | [phone] | | Medica | | | RE | | 13-Pre | 5 | | re | | | PART A | | sent | | | | | | AND B | | | | | | + +--------+ +--------+ +---------+--------+ | MEDICARE | MEDICA | [id number] | 04/11/19 | [phone] | | Medica | | | RE | | 13-Pre | 5 | | re | | | PART A | | sent | | | | | | AND B | | | | | | + +--------+ +--------+ +---------+--------+ | AARP | AARP | [id number] | 04/11/19 | [phone] | | Indemn | | | MDCR | | 19-Pre | 0 | | ity | | | SUPPL | | sent | | | | + +--------+ +--------+ [...] al/Fam | | 1956 | [phone] | [place], [place] | | | bianca | | | 8 (Home) | [address] | + +--------+ +--------+ + + | Smita Willingham | Person | Self [birth year] | [address] | | | al/Fam | | 1956 | [phone] | [place], [place] | | | [place] | | | 8 (Home) | [address] | + +--------+ +--------+ + + Advance Directives + + + + + | Type | Date Recorded | Patient | Explanation | | | | Blurb Writer | | + + + + + | Power of | | | | | Director Of Teenage Activities | | | | + + + + + | Advance | | | | | Directive | | | | + + + + +
--- OUTSIDE RECORDS SUMMARY | ~2019-11-03 | XMS | Encounter Summary ---
Demographics + + + | Address | [address] | | | [place] [address] | + + + | Home Phone | | + + + | Preferred Language | Unknown | + + + | Marital Status | | + + + | Samaritan Affiliation | NRP | + + + | Race | White | + + + | Ethnic Group | Not or | + + + Author + + + | Author | [facility] | + + + | Organization | [facility] | + + + | Address | Unknown | + + + | Phone | Unavailable | + + + Support + + + + + | Name | Relationship | Address | Phone | + + + + + | Kole Willingham | [place] | [address] | | | | | [place], [place] | | | | | [address] | | + + + + + | Cami Sawyer | ECON | Unknown | | + + + + + Care Team Providers + +------+ + | Care Order Filler Name | Role | Phone | + [...] [address] | | | | | | [place], [place] | | | | | | [address] | | | +--------+ + + + [...]
--- OUTSIDE RECORDS SUMMARY | ~2019-11-03 | XMS | Encounter Summary ---
Demographics + + + | Address | [address] | | | [place] [address] | + + + | Home Phone [...] [place], [place] | | | | | [address] | | + + + + + | Cami Sawyer | ECON | Unknown | | + + + + + Care Team Providers + +------+ + | Care Product Safety Lead Name | Role | Phone | [...] | OPAL Howard Romeo Kristen | [address] [facility] | evacuation of | | | | [address] [facility] | [facility] [address] | hematoma, control of | | | | Hospital Admitting | [place], [place] | retroperitonieal | | | | Desk Located on the | [address] | hemorage, lysis of | | | | 9th floor | [phone] | adhesions, wound vac | | | | [place], [place] | | placement, and | | | | [address] | | abdominal wall | | | [...] might be different f rom the original. [facility] DEPARTMENT OF SURGERY EMERGENCY GENERAL SURGERY [...] continued to progress and is discharged to [facility] facility for [facility] care. Mackenzie Hartley is discharged in [...] might be different f rom the original. [facility] DEPARTMENT OF SURGERY [...] s while anticoagulated with warfarin transferred to [facility] from [facility] for hanh gement of retroperitoneal [...] diet [place]charge [place]: [place] [id number] pager number [facility] [phone] [facility] [phone] Jean-Claude Chaidez DM D, MD - 05/12/2014 7:56 AM PST [facility] Department of Surgery Progress Note Author: Jean-Claude Albrecht MD General Surgery Resident Attending Physician: Jf Wiseman MD GENERAL SURGERY Progress Note: Hospital Day #: 19 ATTENDING: Jf Wiseman MD Identification: Mackenzie Hartley is a 58 year old female with COPD, Crohn's disease, chronic pa in, and 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 [...] thrombosis while anticoagulated with warfarin transferred to [facility] from [facility] for management of retroperitoneal bleed. [...] know if she wants to see the [facility] GI team - Stage I pressure wound: [...] recommending VIBRA since would be close to [facility] and she would benefit for aggres sive [...] with complication 03/12/2012 Jean-Claude Albrecht D.M.D., M.D. [facility] [address]A [address] [place] [phone] This assessment and plan was formulated both [...] MD - 05/11/2014 8:51 AM PST . 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 [...] thrombosis while anticoagulated with warfarin transferred to [facility] from [facility] for management of retroperitoneal bleed. [...] know if she wants to see the [facility] GI team - Stage I pressure wound: [...] recommending VIBRA since would be close to [facility] and she would benefit for aggres sive [...] with complication 03/12/2012 Jean-Claude Albrecht D.M.D., M.D. [facility] [address] [place] [address] This assessment and plan was formulated both [...] being active. Pt's has been at the [facility] supporting her. Pt is not jainism but appreciates support. Intervention: Provided a listening presence and explored pt's anxieties, worries and hopes. Plan: Spiritual care remains available. 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 [...] thrombosis while anticoagulated with warfarin transferred to [facility] from [facility] for management of retroperitoneal bleed. [...] know if she wants to see the [facility] GI team - Stage I pressure wound: [...] recommending JJ since would be close to [facility] and she would benefit for marcela olsone [...] intestine with complication 03/12/2012 ANDREW VINCENT MD [facility] [address] [place] [address] This assessment and plan was [...] note might be different from the [facility]. 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 [...] thrombosis while anticoagulated with warfarin transferred to [facility] from [facility] for management of retroperitoneal bleed. [...] know if she wants to see the [facility] GI team - Stage I pressure wound: [...] recommending SONIAA since would be close to [facility] and she would benefit for aggres sive [...] intestine with complication 03/12/2012 ANDREW VINCENT MD [facility] [address] [place] [address] This assessment and plan was [...] note might be different from the orig [facility]. 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 [...] TROPONIN Imaging No new Cultures BLOOD CULTURE [facility] (no units) Date Value Range Status 04/26/2014 [...] thrombosis while anticoagulated with warfarin transferred to [facility] from [facility] for management of retroperitoneal bleed. [...] know if she wants to see the [facility] GI team - Stage I pressure wound: [...] recommending SONIAA since would be close to [facility] and she would benefit for marcela robles [...] small and large intestine with complication 03/12/2012 ANRDEW VINCENT MD [facility] [address] [place] [address] This assessment and plan was formulated both [...] this note might be different from the [facility] Department of Surgery Progress Note Author: Andrew Vincent MD General Surgery Resident Attending Physician: Jf Wiseman MD GENERAL SURGERY Progress Note: Hospital Day #: 14 ATTENDING: Jf Wiseman MD Identification: Mackenzie Hartley is a 58 year old female with COPD, Crohn's disease, chronic pa in, and 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 [...] TROPONIN Imaging No new Cultures BLOOD CULTURE [facility] (no units) Date Value Range Status 04/26/2014 [...] thrombosis while anticoagulated with warfarin transferred to [facility] from [facility] for management of retroperitoneal bleed. [...] intestine with complication 03/12/2012 ANDREW VINCENT MD [facility] [address] [place] [address] This assessment and plan was formulated both independently and in conjunction with the Surg vihn Team as well as the attending provider of record above regarding management of this satrr ent and their medical issues. 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 [...] TROPONIN Imaging No new Cultures BLOOD CULTURE [facility] (no units) Date Value Range Status 04/26/2014 [...] thrombosis while anticoagulated with warfarin transferred to [facility] from [facility] for management of retroperitoneal bleed. [...] continued DHT,TF - Diet: NPO - per SAP TECHNICAL DEVELOPER, high risk of aspiration - continue ice [...] intestine with complication 03/12/2012 ANDREW VINCENT MD [facility] [address]A [address] [place] [address] This assessment and plan was [...] note might be different from the orig [facility]. 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 [...] TROPONIN Imaging No new Cultures BLOOD CULTURE [facility] (no units) Date Value Range Status 04/26/2014 [...] thrombosis while anticoagulated with warfarin transferred to [facility] from [facility] for management of retroperitoneal bleed. [...] intestine with complication 03/12/2012 ANDREW VINCENT MD [facility] [address]A [address] [place] [address] This assessment and plan was formulated both [...] the resident s note. PHIL VARMA MD [facility] [address]A [address] [place] [address] Rosa Sauer MD - 05/04/2014 8:26 AM [...] at referring hospital. She was transferred to [facility] f or active hemorrhage and underwent [...] rounds. Rosa Reynoso, R2 SICU/Trauma Personal pager: [phone] Team pager: [phone] Angeles Acevedo MD - 05/04/2014 7:08 AM PST [facility] [place] DEPARTMENT OF SURGERY EGS ICU Progress Note Division of Trauma and Critical Care ID: Mackenzie Hartley is a 58 year old female with COPD, Crohn's disease, chronic pain, and 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 while anticoagulated with warfarin transferre d to [facility] from [facility] for management of retroperitoneal bleed. [...] thrombosis while anticoagulated with warfarin transferred to [facility] from [facility] for management of retroperitoneal bleed. She has required repeated transfers to ICU for respiratory status. She has been diuresed ap propriately while in the ICU and O2 needs have decreased significantly. Will transfer to [facility] or, but need to keep a [...] Hannah MD General Surgery Resident, R3 Pager [phone] [facility] [address] [place] [address] Jf Jones MD - 05/03/2014 9:38 AM [...] - TF at goal, + BM Dysphagia: SAP TECHNICAL DEVELOPER following- remains NPO Anasarca: compression socks,. Goal [...] Call team 01/11 for questions: Team Pager [phone] ATTENDING ADDENDUM: I saw and examined Mackenzie [...] Erin Christensen PA-C. Jf Wiseman MD FACS stock control clerk Division of Trauma, Critical Care, and Acute Care Surgery [phone] Elda Emmanuel MD - 05/03/2014 3:49 AM PST EMERGENCY GENERAL SURGERY ICU PROGRESS NOTE: Attending Physician: Jf Wiseman MD 05/03/2014 ID: Mackenzie Hartley is a 58 year old female with COPD, Crohn's disease, chronic pain, and coagulopa thy resulting in splenic artery thrombosis while anticoagulated with warfarin transferred to [facility] from [facility] for management of retroperitoneal bleed. [...] thrombosis while anticoagulated with warfarin transferred to [facility] from [facility] for management of retroperitoneal bleed. [...] this patient encounter. Elda Glez MD Pager [phone] Plastic Surgery R2 [facility] Diagnoses: 555.2 Crohn's disease of both [...] intact, dry, no grimace to palpation Genitourinary: wlof draining yellow urine Musculoskeletal: WWP, laxmi hose [...] holding Q6W Remicade- will consult hematology in [facility] [place] [place] yaritza week regarding of timing of resuming remicade Severe malnutrition: - TF at goal, + BM, Dysphagia: SAP TECHNICAL DEVELOPER following- remains NPO Anasarca: compression socks,. Goal [...] Call team 01/11 for questions: Team Pager [phone] ATTENDING ADDENDUM: I saw and examined Mackenzie [...] Marge Harris PA-C. Jf Wiseman MD FACS stock control clerk Division of Trauma, Critical Care, and Acute Care Surgery [phone] ngeles Hannah MD - 05/02/2014 6:55 AM PST [facility] DEPARTMENT OF SURGERY EGS ICU Progress Note Division of Trauma and Critical Care ID: Mackenzie Hartley is a 58 year old female with COPD, Crohn's disease, chronic pain, and 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 while anticoagulated with warfarin transferre d to [facility] from [facility] for management of retroperitoneal bleed. [...] thrombosis while anticoagulated with warfarin transferred to [facility] from [facility] for management of retroperitoneal bleed. [...] Hannah MD General Surgery Resident, R3 Pager [phone] [place] [address] Kristina, Angeles Hanna MD - 05/02/2014 2:14 [...] Hannah MD General Surgery Resident, R3 Pager [phone] Jean-Claude Chaidez DMD, MD - 05/01/2014 10:36 AM PST [facility] DEPARTMENT OF SURGERY EGS Progress Note ID: Mackenzie Hartley is a 58 year old female with COPD, Crohn's disease, chronic pain, and 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 while anticoagulated with warfarin transferre d to [facility] from [facility] for management of retroperitoneal bleed. [...] thrombosis while anticoagulated with warfarin transferred to [facility] from [facility] for management of retroperitoneal bleed. Overall, she is improving. However, remains tachycardic with leukocytosis - WBC [address] 05/01 showed - moderate ascites and pleural effusions and hematoma. Neuro: dilaudid IV PRN Speech: following continue daily to eval swallow CV: HD stable L FELTER TENNIS BALLS PSA resolved Continue IV lasix today 20 [...] acute care hospitalization Jean-Claude Albrecht D.M.D., M.D. [facility] [place] [address] [facility] [place] [address] Jf Jones MD - 04/30/2014 11:08 AM [...] at referring hospital. She was transferred to [facility] fo r active hemorrhage and underwent [...] malnutrition: - pulled DHT- refusing replacement. Await SAP TECHNICAL DEVELOPER eval if passes swallow will give chance to prove adequate po intake. Expect will require TFs again Dysphagia: await SAP TECHNICAL DEVELOPER eval today. Cont meds and feed via [...] Call team 01/11 for questions: Team Pager [phone] ATTENDING ADDENDUM: I saw and examined Mackenzie [...] Marge Harris PA-C. Jf Wiseman MD FACS stock control clerk Division of Trauma, Critical Care, and Acute Care Surgery [phone] Angeles Acevedo MD - 04/30/2014 1:18 AM PST [facility] DEPARTMENT OF SURGERY EGS ICU Progress Note Division of Trauma and Critical Care ID: Mackenzie Hartley is a 58 year old female with COPD, Crohn's disease, chronic pain, and 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 while anticoagulated with warfarin transferre d to [facility] from [facility] for management of retroperitoneal bleed. [...] elemental, 110 mg total salt, oral, DAILY, aBrtolo Thacker MD, 25 mg elemental at 04/29/14927 [...] thrombosis while anticoagulated with warfarin transferred to [facility] from [facility] for management of retroperitoneal bleed. Overall, she is improving. However, remains tachycardic with leukocytosis -- difficult to t ease out if this is secondary to asplenia. Will obtain CT abd pelvis today to clarify. Neuro: dilaudid IV PRN and intermittent versed for sedation CV: HD stable L FELTER TENNIS BALLS PSA resolved Pulm: titrate to O2 >92% [...] Hannah MD General Surgery Resident, R3 Pager [phone] [facility] [address] [place] [address] Aravind Morales MD - 04/29/2014 11:43 AM PSTICU Attending: I saw and examined Mackenzie Hartley ([id number]) with Erin Christensen PA-C on 04/29/14 and [...] documented by valentin HASTINGS. Aravind Massey MD Chemical Plant Operator Trauma, Critical Care & Acute Care [...] at referring hospital. She was transferred to [facility] fo r active hemorrhage. Hospital Day [...] resolving cont current H2O via DHT Dysphagia: SAP TECHNICAL DEVELOPER consulted, ice chips only. Cont meds and [...] Call team 01/11 for questions: Team Pager [phone] Chelly Blum MD,M PH - 04/28/2014 3:03 [...] at referring hospital. She was transferred to [facility] fo r active hemorrhage. Hospital Day [...] Hyernatremia: resolving, reduce H2O to 30ml/hr Dysphagia: SAP TECHNICAL DEVELOPER consulted, ice chips only. Cont meds and [...] Call team 01/11 for questions: Team Pager [phone] Angeles Acevedo MD - 04/28/2014 5:18 AM PST [facility] [place] DEPARTMENT OF SURGERY EGS ICU Progress Note Division of Trauma and Critical Care ID: Mackenzie Hartley is a 58 year old female with COPD, Crohn's disease, chronic pain, and 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 while anticoagulated with warfarin transferre d to [facility] from [facility] for management of retroperitoneal bleed. She is s/p ex lap, splenectomy, and packing with lap pads at OSH and from reopening of laparotomy, evacua tion of 2-3 L of intraabdominal hematoma, closure of open abdomen SUBJECTIVE: Extubated, neurologically doing much better. 3 L NC Underwent successful thrombin injection of L FELTER TENNIS BALLS pseudoaneurysm by IR 04/26 MEDICATIONS: Current facility-administered [...] thrombosis while anticoagulated with warfarin transferred to [facility] from [facility] for management of retroperitoneal bleed. Neuro: dilaudid IV PRN and intermittent versed for sedation CV: HD stable Per vascular: arterial duplex of L FELTER TENNIS BALLS to assess for stability of PSA shows [...] Hannah MD General Surgery Resident, R3 Pager [phone] [facility] [address] [address] Xin Irizarry M D - 04/27/2014 11:55 [...] imaging and laboratory study results EPIC DEPARTMENT: [id number] - HEM FACULTY [facility] Place of Service: - Inpatient Date of Service: 04-27-2014 Modifiers: GC - Resident Involved Suggested CPT: 84048 - Initial, Comp; Mod complex 50 min XIN AGEE MD [facility] [address] [place] [address] wRudy powers Do - 04/27/2014 11:55 AM PST Hematology Consult Progress Note Primary Service: EGS Primary Attending: Jf Wiseman MD Hospital Length of Stay: 4 Interval Events: - extubated - thrombin injection to FELTER TENNIS BALLS pseudoaneurysm - heparin gtt started last night Subjective: Patient is unable to provide history as she remains encephalopathic. Did speak with her , who confirmed history obtained in initial heme consult note. States she givens s been on warfarin since her 2011 [facility] admission with no known thrombotic events since [...] assessme nt and plan. Rudy Sarmiento, DO [facility] Internal Medicine PGY3 Pager [phone] Mirela Josue MD - 04/27/2014 10:49 AM PST [facility] Department of Surgery Progress Note Author: Lucy [...] underwent successful thrombin injection of the left FELTER TENNIS BALLS pseudoaneurysm by IR last night. Heparin restarted [...] ultraso und guided thrombin injection of left FELTER TENNIS BALLS pseudoanuerysm. Will order arterial duplex of left FELTER TENNIS BALLS to assess for stability of pseudoaneurysm Monitor [...] - hemorrhage vs HCAP LUCY MARKS MD [facility] [address] [place] [address] This assessment and plan was formulated both independently and in conjunction with the [facility] ular Surgery Team as well as the attending provider of record above regarding management of this patient and their medical issues. It is accurate to the best of my knowledge, and is s ubject to modification based on clinical developments, new data, or final imaging results. [facility] staff I saw and evaluated the patient. I agree with the findings and the plan of care as jannie hair in the resident s note. Left femoral pseudoaneurysm appears resolved. Stable from [facility] standpoint. No further imaging required unless clinical status changes. Mirela Thompson M.D. [facility] Vascular Surgery [address] [facility] [place] [address] Email: [email or web address] Jf Jones MD - 04/27/2014 8:03 [...] at referring hospital. She was transferred to [facility] fo r active hemorrhage. Hospital Day [...] H2O Hyernatremia: water 100ml/hr via DHT Dysphagia: SAP TECHNICAL DEVELOPER consulted, ice chips only JULIANE: ATN from [...] Call team 01/11 for questions: Team Pager [phone] ATTENDING ADDENDUM: I saw and examined Mackenzie [...] Erin Christensen PA-C. Jf Wiseman MD FACS stock control clerk Division of Trauma, Critical Care, and Acute Care Surgery [phone] ankerElda MD - 04/27/2014 4:52 AM PST EMERGENCY GENERAL SURGERY ICU PROGRESS NOTE: Attending Physician: Jf Wiseman MD 04/27/2014 ID: Mackenzie Hartley is a 58 year old female with COPD, Crohn's disease, chronic pain, and coagulopa thy resulting in splenic artery thrombosis while anticoagulated with warfarin transferred to [facility] from [facility] for management of retroperitoneal bleed. [...] HR EVENTS: - Incidentally found to have FELTER TENNIS BALLS pseudoaneurysm, injected with thrombin by IR - [...] thrombosis while anticoagulated with warfarin transferred to [facility] from [facility] for management of retroperitoneal bleed. [...] this patient encounter. Elda Glez MD Pager [phone] Plastic Surgery R2 [facility] Diagnoses: 555.2 Crohn's disease of both [...] Attending:Dr. Lenny Calhoun MD (Fellow)/pager: Dr. Vang [phone] Medications Procedure Meds: Dilaudid IV 0.5mg Midazolam [...] at referring hospital. She was transferred to [facility] fo r active hemorrhage. Hospital Day [...] Call team 01/11 for questions: Team Pager [phone] Angeles Acevedo MD - 04/26/2014 5:24 AM PST [facility] DEPARTMENT OF SURGERY EGS ICU Progress Note Division of Trauma and Critical Care ID: Mackenzie Hartley is a 58 year old female with COPD, Crohn's disease, chronic pain, and 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 while anticoagulated with warfarin transferre d to [facility] from [facility] for management of retroperitoneal bleed. [...] mg total salt, feeding tube, DAILY, Chris aHrris PA-C, 25 mg elemental at 04/25/14 0812 [...] thrombosis while anticoagulated with warfarin transferred to [facility] from [facility] for management of retroperitoneal bleed. [...] Hannah MD General Surgery Resident, R3 Pager [phone] [facility] & [address] [place] [address] Nithya Andres MD - 04/25/2014 6:40 AM PSTTSICU Attending 04/25/14 58 yo woman critically ill with complex surgical and medical history, transferred to [facility] w ith intraabdominal and retroperitoneal hemorrhage 2 [...] Call team 01/11 for questions: Team Pager [phone] Angeles Acevedo MD - 04/25/2014 4:39 AM PST [facility] [place] DEPARTMENT OF SURGERY EGS ICU Progress Note Division of Trauma and Critical Care ID: Mackenzie Hartley is a 58 year old female with COPD, Crohn's disease, chronic pain, and 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 while anticoagulated with warfarin transferre d to [facility] from [facility] for management of retroperitoneal bleed. [...] (MYCOSTATIN) cream, , topical, QID PRN, Gayatri Crhistensen PA-C oxyCODONE (immediate release) (ROXICODONE) tablet 5-15 [...] thrombosis while anticoagulated with warfarin transferred to [facility] from [facility] for management of retroperitoneal bleed. [...] Hannah MD General Surgery Resident, R3 Pager [phone] [facility] & [place] [id number] [facility] [phone] ich Redding MD - 04/24/2014 9:21 AM [...] extubate Initial surgical contact: Miladis at pager [phone] Nithya Andres MD - 04/24/2014 5:25 AM [...] exploration at referring hospital. IR embolization at [facility]. 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 [...] thrombosis while anticoagulated with warfarin transferred to [facility] from [facility] for management of retroperitoneal bleed. [...] Hannah MD General Surgery Resident, R3 Pager [phone] [facility] [place] [address] [address] [facility] [place] [address] Rudy Parker M D - 04/23/2014 5:07 PM PSTBRIEF INTERVENTIONAL RADIOLOGY PROCEDURE NOTE DATE: 04/23/2014 5:07 PM PROCEDURE: Pelvic angiography with glue embolization PRE-PROCEDURE DIAGNOSIS: Retroperitoneal hematoma POST-PROCEDURE DIAGNOSIS: Same IR STAFF: Lenny IR FELLOW: Ciera ACCESS: L FELTER TENNIS BALLS MEDICATIONS: Fentanyl IV 150 mcg Midazolam IV [...] | + + + + + | [facility] | [address] | [place] [address] | | | SERVICESJANELL | [address] [...] - [facility] | [address] | [place], [place] | | | [facility] CARE | [facility] | [address] | | | TESTS | | | [...] [facility] | [address] | [place] [address] | | | SERVICES, CORE | PARK [...] [facility] | [address] | [place] [address] | | | SERVICES, CORE | PARK [...] | | | LABORATORY | | | MARSHALLESE | | | SERVICES, | | | [...] | + + + + + | [facility] | [address] | [place] [address] | | | ARON, JANELL | KRISTEN [...] [facility] | [address] | [place], [place] | | | [facility] CARE | [address] | [address] | | | TESTS | | | [...] MARGOPIAM | [address] | [place], [place] | | | [facility] MOORE OF [facility] | [address] | [address] | | | TESTS | | | [...] | + + + + + | [facility] | [address] | [place] [address] | | | SERVICES, CORE | [address] | | | + + + + + MAGNESIUM, PLASMA (05/12/2014 1:07 AM PST) + +---------+ + + + | Component | Value | Ref Range | Performed | Pathologist | | | | | At | Signature | + +---------+ + + + | MAGNESIUM,P | 1.5 (L) | 1.8 - 2.5 mg/dL | [facility] | | | LASMA | | | [...] | + + + + + | [facility] | [address] | [place] [address] | | | SERVICES, CORE | KRISTEN [...] | | | LABORATORY | | | MARSHALLESE | | | SERVICES, | | | [...] the MDRD equation recommended by the | [facility] | | National Kidney Disease Education Program. [...] | + + + + + | [facility] | [address] | [place] [address] | | | ARON, JANELL | KRISTEN [...] [facility] | [address] | [place] [address] | | | SERVICES, JANELL | KRISTEN [...] - MARQUAM | [address] | [place], [place] | | | [facility] CARE | [address] | [address] | | | TESTS | | | [...] + + + | [facility] | [address] | [place], [place] | | | [facility] CARE | [address] | [address] | | | TESTS | | | [...] [facility] | [address] | [place] [address] | | | SERVICES, CORE | PARK [...] | + + + + + | [facility] | [address] | [place] [address] | | | SERVICES, CORE | KRISTEN [...] | | | LABORATORY | | | MARSHALLESE | | | SERVICES, | | | [...] the MDRD equation recommended by the | [facility] | | National Kidney Disease Education Program. [...] | + + + + + | [facility] | [address] | [place] [address] | | | SERVICES, CORE | PARK [...] (H) | 0.90 - 1.20 INR | [facility] | | | | | | LABORATORY [...] | + + + + + | [facility] | [address] | [place] [address] | | | JANELL SHARP | KRISTEN [...] (H) | 60 - 99 mg/dL | [facility] - | | | GLUCOSE, | | [...] SANDERS | [address] | [place], [place] | | | [facility] OF CARE | [address] | [address] | | | TESTS | | | [...] + + | Performing | Address | City/State/[facility] | Phone Number | | Organization | | | | + + + + + | [facility] | [address] | [place], [place] | | | KAILEY MOORE | [facility] | [address] | | | TESTS | | | [...] | | + +---------+ + + | [facility] DEPARTMENT OF | | | | | [...] MARILYN | [address] | [place], [place] | | | PEPE MOORE OF SHLOOM | [facility] | [address] | | | TESTS | | | [...] (H) | 60 - 99 mg/dL | [facility] - | | | GLUCOSE, | | [...] SANDERS | [address] | [place], [place] | | | [facility] CARE | [address] | [address] | | | TESTS | | | [...] | + + + + + | [facility] | [address] | [place] [address] | | | SERVICES, CORE | PARK [...] | + + + + + | [facility] | [address] | [place] [address] | | | SERVICES, CORE | KRISTEN [...] | | | LABORATORY | | | MARSHALLESE | | | SERVICES, | | | [...] the MDRD equation recommended by the | [facility] | | National Kidney Disease Education Program. [...] | + + + + + | [facility] | [address] | [place] [address] | | | SERVICES, CORE | PARK [...] (H) | 0.90 - 1.20 INR | [facility] | | | | | | LABORATORY [...] | + + + + + | [facility] | [address] | [place] [address] | | | SERVICES, CORE | PARK [...] MAR[facility] | [address] | [place], [place] | | | [facility] POINT OF CARE | [address] | [address] | | | TESTS | | | [...] SANDERS | [address] | [place], [place] | | | [facility] POINT OF CARE | [address] | [address] | | | TESTS | | | [...] [facility] | [address] | [place], [place] | | | [facility]AR POINT OF CARE | [address] | [address] | | | TESTS | | | [...] [facility] | [address] | [place] [address] | | | ARON, JANELL | PARK [...] [facility] | [address] | [place] [address] | | | SERVICES, CORE | PARK [...] | | | LABORATORY | | | MARSHALLESE | | | SERVICES, | | | [...] | + + + + + | [facility] | [address] | [place] [address] | | | SERVICES, CORE | PARK [...] | + + + + + | [facility] | [address] | [place] [address] | | | SERVICES, CORE | KRISTEN [...] MARQUAM | [address] | [place], [place] | | | [place] MOORE OF SH[place] | [facility] | [address] | | | TESTS | | | [...] SANDERS | [address] | [place], [place] | | | OSCAR [facility] OF [facility] | [address] | [address] | | | TESTS | | | [...] [facility] | [address] | [place] [address] | | | SERVICES, CORE | PARK [...] [facility] | [address] | [place] [address] | | | SERVICES, CORE | PARK [...] | | | LABORATORY | | | MARSHALLESE | | | SERVICES, | | | [...] | + + + + + | [facility] | [address] | [place] [address] | | | SERVICES, JANELL | KRISTEN [...] | + + + + + | [facility] | [address] | [place] [address] | | | SERVICES, JANELL | KRISTEN [...] MAR[facility] | [address] | [place], [place] | | | [facility] CARE | [address] | [address] | | | TESTS | | | [...] MARQUAM | [address] | [place], [place] | | | [facility] CARE | [address] | [address] | | | TESTS | | | [...] | + + + + + | [facility] | [address] | [place] [address] | | | SERVICES, CORE | [address] | | | + + + + + MAGNESIUM, PLASMA (05/07/2014 3:15 AM PST) + +---------+ + + + | Component | Value | Ref Range | Performed | Pathologist | | | | | At | Signature | + +---------+ + + + | MAGNESIUM,P | 1.6 (L) | 1.8 - 2.5 mg/dL | [facility] | | | [facility] | | | [...] | + + + + + | [facility] | [address] | [place] [address] | | | SERVICES, CORE | KRISTEN [...] | | | LABORATORY | | | MARSHALLESE | | | SERVICES, | | | [...] the MDRD equation recommended by the | [facility] | | National Kidney Disease Education Program. [...] | + + + + + | [facility] | [address] | [place] [address] | | | ARON, JANELL | KRISTEN [...] + + + | [facility] | [address] | [place] [address] | | | SERVICES, JANELL | KRISTEN [...] - MARILYN | [address] | [place], [place] | | | [place] [facility] OF [facility] | [address] | [address] | | | TESTS | | | [...] | + + + + + | [facility] | [address] | [place] [address] | | | SERVICES, CORE | KRISTEN [...] [facility] | [address] | [place], [place] | | | [facility] CARE | [address] | [address] | | | TESTS | | | [...] [facility] | [address] | [place], [place] | | | OSCAR POINT OF [facility] | [address] | [address] | | | TESTS | | | [...] [facility] | [address] | [place] [address] | | | SERVICES, CORE | PARK [...] [facility] | [address] | [place] [address] | | | SERVICES, CORE | PARK [...] | | | LABORATORY | | | MARSHALLESE | | | SERVICES, | | | [...] | + + + + + | [facility] | [address] | [place] [address] | | | SERVICES, JANELL | KRISTEN [...] | + + + + + | [facility] | [address] | [place] [address] | | | ARON, JANELL | KRISTEN [...] | + + + + + | [facility] | [address] | [place] [address] | | | SERVICES, CORE | KRISTEN [...] [facility] | [address] | [place] [address] | | | SERVICES, CORE | PARK [...] | + + + + + | [facility] | [address] | [place] [address] | | | SERVICES, CORE | KRISTEN [...] | | | LABORATORY | | | MARSHALLESE | | | SERVICES, | | | [...] the MDRD equation recommended by the | [facility] | | National Kidney Disease Education Program. [...] | + + + + + | [facility] | [address] | [place] [address] | | | SERVICES, CORE | PARK [...] [facility] | [address] | [place] [address] | | | SERVICES, JANELL | KRISTEN [...] + + + + | [facility] | [address] | [place], [place] | | | [facility] | [address] | [address] | | + + + + + [...] [facility] | [address] | [place] [address] | | | SERVICES, CORE | KRISTEN [...] | + + + + + | [facility] | [address] | [place] [address] | | | SERVICES, CORE | KRISTEN [...] [facility] | [address] | [place] [address] | | | SERVICES, CORE | PARK [...] | + + + + + | [facility] | [address] | [place] [address] | | | SERVICES, CORE | KRISTEN [...] | | | LABORATORY | | | MARSHALLESE | | | SERVICES, | | | [...] [facility] | [address] | [place] [address] | | | SERVICES, CORE | KRISTEN [...] (H) | 0.90 - 1.20 INR | [facility] | | | | | | LABORATORY [...] [facility] | [address] | [place] [address] | | | SERVICES, CORE | KRISTEN [...] | + + + + + | [facility] | [address] | [place] [address] | | | SERVICES, JANELL | KRISTEN [...] [facility] | [address] | [place] [address] | | | SERVICES, CORE | PARK [...] [facility] | [address] | [place] [address] | | | SERVICES, CORE | PARK [...] | + + + + + | [facility] | [address] | [place] [address] | | | ARON, JANELL | KRISTEN [...] (H) | 60 - 99 mg/dL | [facility] - | | | GLUCOSE, | | [...] SANDERS | [address] | [place], [place] | | | [place] OF [place] | [facility] | [address] | | | TESTS | | | [...] | | + +---------+ + + | [facility] DEPARTMENT OF | | | | | [...] LABORATORY | [address] | [place] [address] | | | SERVICES, CORE | PARK [...] | + + + + + | [facility] | [address] | [place] [address] | | | SERVICES, CORE | KRISTEN [...] | | | LABORATORY | | | MARSHALLESE | | | SERVICES, | | | [...] | + + + + + | [facility] | [address] | [place] [address] | | | SERVICES, CORE | PARK [...] | + + + + + | [facility] | [address] | [place] [address] | | | SERVICES, CORE | PARK [...] | + + + + + | [facility] | [address] | [place] [address] | | | SERVICES, CORE | KRISTEN [...] | | | LABORATORY | | | MARSHALLESE | | | SERVICES, | | | [...] the MDRD equation recommended by the | [facility] | | National Kidney Disease Education Program. [...] | + + + + + | [facility] | [address] | [place] [address] | | | ARON, JANELL | KRISTEN [...] | | | LABORATORY | | | MARSHALLESE | | | SERVICES, | | | [...] | + + + + + | [facility] | [address] | [place] [address] | | | SERVICES, CORE | KRISTEN [...] [facility] | [address] | [place], [place] | | | THERAPY | [address] | [address] | | + + + + + [...] RESPIRATORY | [address] | [place], [place] | | | THERAPY | [address] | [address] | | + + + + + [...] | + + + + + | [employer] [facility] | [address] | [place] [address] | | | SERVICES, CORE | KRISTEN [...] LABORATORY | [address] | [place] [address] | | | SERVICES, CORE | PARK [...] | + + + + + | [facility] | [address] | [place] [address] | | | SERVICES, CORE | KRISTEN [...] | | | LABORATORY | | | MARSHALLESE | | | SERVICES, | | | [...] [facility] | [address] | [place] [address] | | | SERVICES, CORE | PARK [...] [facility] | [address] | [place] [address] | | | SERVICES, CORE | KRISTEN [...] DEPT OF | [address] | [place], [place] | | | CARDIOLOGY | [address] | [address] | | + + + + + X-RAY PORTABLE CHEST 1 VIEW (05/02/2014 2:11 AM PST) + + + + + + | Component | Value | Ref Range | Performed | Pathologist | | | | | At | Signature | + + + + + + | X-RAY | EXAM: [place] CHEST 1 VIEW | | | [...] | | + +---------+ + + | [facility] DEPARTMENT OF | | | | | [...] | + + + + + | [facility] | [address] | [place] [address] | | | JANELL SHARP | KRISTEN [...] (H) | 60 - 99 mg/dL | [facility] - | | | GLUCOSE, | | [...] SANDERS | [address] | [place], [place] | | | [facility]SCAR POINT OF CARE | [address] | [address] | | | TESTS | | | [...] [facility] | [address] | [place], [place] | | | [place] [facility] [facility] [place] | [address] | [address] | | | TESTS | | | [...] | + + + + + | [facility] | [address] | [place] [address] | | | SERVICES, CORE | [address] | | | + + + + + X-RAY PORTABLE CHEST 1 VIEW (05/01/2014 3:37 AM PST) + + + + + + | Component | Value | Ref Range | Performed | Pathologist | | | | | At | Signature | + + + + + + | X-RAY | EXAM: [place] CHEST 1 VIEW | | | [...] Bilateral | | | | | | [id number] | | | | | | pleural [...] LABORATORY | [address] | [place] [address] | | | SERVICES, CORE | [address] | | | + + + + + MAGNESIUM, PLASMA (05/01/2014 2:45 AM PST) + +-------+ + + + | Component | Value | Ref Range | Performed | Pathologist | | | | | At | Signature | + +-------+ + + + | MAGNESIUM,P | 1.9 | 1.8 - 2.5 mg/dL | [facility] | | | [facility] | | | [...] [facility] | [address] | [place] [address] | | | SERVICES, CORE | KRISTEN [...] | | | LABORATORY | | | MARSHALLESE | | | SERVICES, | | | [...] | + + + + + | [facility] | [address] | [place] [address] | | | JANELL SHARP | KRISTEN [...] | + + + + + | [facility] | [address] | [place] [address] | | | SERVICES, JANELL | KRISTEN [...] + + | [facility] | [address] [facility] [address] | [place], [place] | | | PEPE MOORE OF CARE | [address] | [address] | | | TESTS | | | [...] | | + +---------+ + + | [facility] DEPARTMENT OF | | | | | [...] | | + +---------+ + + | [facility] DEPARTMENT OF | | | | | [...] | | + +---------+ + + | [facility] DEPARTMENT OF | | | | | [...] | + + + + + | [employer] | [address] | [place] [address] | | | SERVICES, CORE | PARK [...] | + + + + + | [facility] | [address] | [place] [address] | | | SERVICES, CORE | KRISTEN [...] | + + + + + | [facility] | [address] | [place] [address] | | | ARON, JANELL | KRISTEN [...] | | | LABORATORY | | | MARSHALLESE | | | SERVICES, | | | [...] [facility] | [address] | [place] [address] | | | SERVICES, CORE | PARK [...] | | | LABORATORY | | | MARSHALLESE | | | SERVICES, | | | [...] | + + + + + | [facility] | [address] | [place] [address] | | | SERVICES, JANELL | KRISTEN [...] [facility] | [address] | [place], [place] | | | [facility]SCAR POINT OF CARE | [facility] | [address] | | | TESTS | | | [...] + + | [facility] | [address] | [place] [address] | | | JANELL SHARP | KRISTEN [...] [facility] | [address] | [place] [address] | | | SERVICES, CORE | PARK [...] | | | LABORATORY | | | MARSHALLESE | | | SERVICES, | | | [...] | + + + + + | [facility] | [address] | [place] [address] | | | SERVICES, CORE | KRISTEN [...] | + + + + + | [facility] | [address] | [place] [address] | | | SERVICES, CORE | KRISTEN [...] [facility] | [address] | [place] [address] | | | JANELL SHARP | KRISTEN [...] (H) | 60 - 99 mg/dL | [facility] - | | | GLUCOSE, | | [...] [facility]N | [address] | [place], [place] | | | PE[facility] MOORE OF [facility] | [address] | [address] | | | TESTS | | | [...] [facility] | [address] | [place] [address] | | | SERVICES, CORE | [address] | | | + + + + + INR (04/28/2014 8:00 AM PST) + +-------+ + + + | Component | Value | Ref Range | Performed | Pathologist | | | | | At | Signature | + +-------+ + + + | INR | 1.03 | 0.90 - 1.20 INR | [facility] | | | | | | LABORATORY [...] LABORATORY | [address] | [place] [address] | | | SERVICES, CORE | [address] [...] [facility] | [address] | [place] [address] | | | SERVICES, CORE | KRISTEN [...] [facility] | [address] | [place] [address] | | | SERVICES, CORE | PARK [...] | | | LABORATORY | | | MARSHALLESE | | | SERVICES, | | | [...] | + + + + + | [facility] | [address] | [place] [address] | | | SERVICES, CORE | KRISTEN [...] | + + + + + | [facility] | [address] | [place] [address] | | | SERVICES, JANELL | KRISTEN [...] | + + + + + | [facility] | [address] | [place] [address] | | | SERVICES, JANELL | KRISTEN [...] | | + +---------+ + + | [facility] DEPARTMENT OF | | | | | [...] | + + + + + | [facility] | [address] | [place] [address] | | | SERVICES, CORE | KRISTEN [...] [facility] | [address] | [place], [place] | | | [facility] | [facility] | [address] | | | TESTS | | | | + + + + + X-RAY ABD LTD FEEDING TUBE EVAL PORTABLE (04/27/2014 10:33 AM PST) + + + + + + | Component | Value | Ref Range | Performed | Pathologist | | | | | At | Signature | + + + + + + | X-RAY ABD | STUDY: [facility] | | | | | [...] | + + + + + | [facility] | [address] | [place] [address] | | | ARON, JANELL | KRISTEN [...] | + + + + + | [facility] | [address] | [place] [address] | | | SERVICES, CORE | KRISTEN [...] | + + + + + | [facility] | [address] | [place] [address] | | | SERVICES, CORE | KRISTEN [...] [facility] | [address] | [place] [address] | | | SERVICES, CORE | PARK [...] | | | LABORATORY | | | [place] | | | SERVICES, | | | [...] | + + + + + | [facility] | [address] | [place] [address] | | | SERVICES, CORE | KRISTEN [...] [facility] | [address] | [place] [address] | | | SERVICES, CORE | PARK [...] | + + + + + | [facility] | [address] | [place] [address] | | | SERVICES, CORE | KRISTEN [...] + + + + + | [facility] | [address] | [place] [address] | | | SERVICES, CORE | PARK [...] | + + + + + | [facility] | [address] | [place] [address] | | | SERVICES, CORE | PARK [...] [facility] | [address] | [place] [address] | | | SERVICES, CORE | PARK [...] | | | LABORATORY | | | [place] | | | SERVICES, | | | [...] | + + + + + | [facility] | [address] | [place] [address] | | | SERVICES, CORE | KRISTEN [...] PRIMARY | | | | | | BIOD[employer] TECHNOLOGY MANAGER: Rudy | | | | | | [...] [facility] | [address] | [place], [place] | | | [facility] | [address] | [address] | | | TESTS | | | [...] | | + +---------+ + + | [facility] DEPARTMENT OF | | | | | [...] [facility] | [address] | [place] [address] | | | SERVICES, CORE | KRISTEN [...] | + + + + + | [facility] | [address] | [place] [address] | | | SERVICES, CORE | KRISTEN [...] | + + + + + | [facility] [facility] | [address] | [place] [address] | | | SERVICES, CORE | KRISTEN [...] | + + + + + | [facility] | [address] | [place] [address] | | | SERVICES, JANELL | KRISTEN [...] | + + + + + | [facility] | [address] | [place] [address] | | | SERVICES, JANELL | KRISTEN [...] | + + + + + | [facility] | [address] | [place] [address] | | | SERVICES, CORE | KRISTEN [...] | | | LABORATORY | | | [place] | | | SERVICES, | | | [...] | + + + + + | [facility] | [address] | [place] [address] | | | JANELL SHARP | KRISTEN [...] [facility] | [address] | [place] [address] | | | SERVICES, CORE | PARK [...] | + + + + + | [facility] | [address] | [place] [address] | | | SERVICES, CORE | KRISTEN [...] (H) | 60 - 99 mg/dL | [facility] - | | | GLUCOSE, | | [...] [facility] | [address] | [place], [place] | | | [facility] | [address] | [address] | | | TESTS | | | [...] | | | LABORATORY | | | [place] | | | SERVICES, | | | [...] the MDRD equation recommended by the | [facility] | | National Kidney Disease Education Program. [...] | + + + + + | [facility] | [address] | [place] [address] | | | JANELL SHARP | KRISTEN [...] (H) | 60 - 99 mg/dL | [facility] - | | | GLUCOSE, | | [...] [facility] | [address] | [place], [place] | | | [facility] | [address] | [address] | | | TESTS | | | [...] [facility] | [address] | [place] [address] | | | SERVICES, CORE | KRISTEN [...] | + + + + + | [facility] | [address] | [place] [address] | | | JANELL SHARP | KRISTEN [...] + + + + | PRODUCT | [id number] | | [facility] | | | UNIT [...] + + + + | BLOOD | [id number] | | [facility] | | | PRODUCT [...] DEPARTMENT OF | [address] | [place] [address] | | | PATHOLOGY | [address] [...] + + + + | PRODUCT | [id number] | | [facility] | | | UNIT [...] + + + + | BLOOD | [id number] | | [facility] | | | PRODUCT [...] | + + + + + | [facility] DE[facility] | [address] | [place] [address] | | | PATHOLOGY | [address] [...] [facility] | [address] | [place] [address] | | | SERVICES, CORE | PARK [...] | + + + + + | [facility] | [address] | [place] [address] | | | SERVICES, CORE | PARK [...] | | | LABORATORY | | | [place] | | | SERVICES, | | | [...] [facility] | [address] | [place] [address] | | | SERVICES, CORE | PARK [...] [facility] | [address] | [place] [address] | | | SERVICES, CORE | KRISTEN [...] | + + + + + | [facility] | [address] | [place] [address] | | | SERVICES, CORE | PARK [...] [facility] | [address] | [place] [address] | | | SERVICES, CORE | PARK [...] | + + + + + | [facility] | [address] | [place] [address] | | | SERVICES, CORE | KRISTEN [...] [facility] | [address] | [place], [place] | | | [facility] | [address] | [address] | | | TESTS | | | [...] [facility] | [address] | [place], [place] | | | [facility] | [address] | [address] | | | TESTS | | | [...] | + + + + + | [facility] | [address] | [place] [address] | | | SERVICES, CORE | KRISTEN [...] | + + + + + | [facility] | [address] | [place] [address] | | | SERVICES, CORE | KRISTEN [...] | | + +---------+ + + | [facility] DEPARTMENT OF | | | | | [...] [facility] | [address] | [place] [address] | | | SERVICES, CORE | PARK [...] | + + + + + | [facility] | [address] | [place] [address] | | | SERVICES, CORE | KRISTEN [...] [facility] | [address] | [place] [address] | | | SERVICES, CORE | PARK [...] | | | LABORATORY | | | [place] | | | SERVICES, | | | [...] | + + + + + | [facility] | [address] | [place] [address] | | | SERVICES, JANELL | KRISTEN [...] [facility] | [address] | [place] [address] | | | SERVICES, CORE | PARK [...] [facility] | [address] | [place] [address] | | | SERVICES, JANELL | KRISTEN [...] [facility] | [address] | [place], [place] | | | THERAPY | [address] | [address] | | + + + + + [...] [facility] | [address] | [place], [place] | | | THERAPY | [address] | [address] | | + + + + + [...] | | | LABORATORY | | | [place] | | | SERVICES, | | | [...] | + + + + + | [facility] | [address] | [place] [address] | | | SERVICES, CORE | [address] | | | + + + [...] | + + + + + | [facility] | [address] | [place] [address] | | | JANELL SHARP | KRISTEN [...] | + + + + + | [facility] | [address] | [place] [address] | | | SERVICES, CORE | PARK [...] [facility] | [address] | [place] [address] | | | SERVICES, CORE | PARK [...] [facility] | [address] | [place] [address] | | | SERVICES, CORE | PARK [...] | + + + + + | [facility] | [address] | [place] [address] | | | ARON, JANELL | KRISTEN [...] | + + + + + | [facility] | [address] | [place] [address] | | | SERVICES, CORE | KRISTEN [...] | | | LABORATORY | | | [place] | | | SERVICES, | | | [...] the MDRD equation recommended by the | [facility] | | National Kidney Disease Education Program. [...] | + + + + + | [facility] | [address] | [place] [address] | | | SERVICES, CORE | PARK [...] | + + + + + | [facility] | [address] | [place] [address] | | | SERVICES, CORE | PARK [...] [facility] | [address] | [place], [place] | | | [facility] | [address] | [address] | | | TESTS | | | [...] PRIMARY | | | | | | BIODIESEL TECHNOLOGY MANAGER: Rudy | | | | | | [...] 5 | | | | | | Kazakh vascular sheath | | | | | [...] | | | | for a 5 Kazakh | | | | | | IMAcatheter. [...] | | | | artery. A 3 Kazakh | | | | | | microcatheterwas [...] DEPT OF | [address] | [place], [place] | | | CARDIOLOGY | [address] | [address] | | + + + + + [...] + + + + | PRODUCT | [id number] | | [facility] | | | UNIT [...] + + + + | BLOOD | [id number] | | [facility] | | | PRODUCT [...] DEPARTMENT OF | [address] | [place] [address] | | | PATHOLOGY | [address] [...] + + + + | PRODUCT | [id number] | | [facility] | | | UNIT [...] + + + + | BLOOD | [id number] | | [facility] | | | PRODUCT [...] DEPARTMENT OF | [address] | [place] [address] | | | PATHOLOGY | [address] [...] + + + + | PRODUCT | [id number] | | [facility] | | | UNIT [...] + + + + | BLOOD | [id number] | | [facility] | | | PRODUCT [...] DEPARTMENT OF | [address] | [place], [place] [address] | | | PATHOLOGY | [address] [...] + + + + | PRODUCT | [id number] | | [facility] | | | UNIT [...] + + + + | BLOOD | [id number] | | [facility] | | | PRODUCT [...] DEPARTMENT OF | [address] | [place] [address] | | | PATHOLOGY | [address] [...] + + + + | PRODUCT | [id number] | | [facility] | | | UNIT [...] + + + + | BLOOD | [id number] | | [facility] | | | PRODUCT [...] | [address] | [place] [address] | | | PATHOLOGY | [address] [...] + + + + | PRODUCT | [id number] | | [facility] | | | UNIT [...] + + + + | BLOOD | [id number] | | [facility] | | | PRODUCT [...] + + + | [facility] | [address] | [place] [address] | | | PATHOLOGY | [address] | | | + + + + + X-RAY PORTABLE CHEST 1 VIEW (04/23/2014 11:41 AM PST) + + + + + + | Component | Value | Ref Range | Performed | Pathologist | | | | | At | Signature | + + + + + + | X-RAY | EXAM: [facility] CHEST 1 VIEW | | | [...] + + + + | PRODUCT | [id number] | | [facility] | | | UNIT [...] + + + + | BLOOD | [id number] | | [facility] | | | PRODUCT [...] DEPARTMENT OF | [address] | [place] [address] | | | PATHOLOGY | [address] [...] + + + + | PRODUCT | [id number] | | [facility] | | | UNIT [...] + + + + | BLOOD | [id number] | | [facility] | | | PRODUCT [...] | + + + + + | [facility] | [address] | [place] [address] | | | PATHOLOGY | [address] [...] + + + + | PRODUCT | [id number] | | [facility] | | | UNIT [...] + + + + | BLOOD | [id number] | | [facility] | | | PRODUCT [...] DEPARTMENT OF | [address] | [place] [address] | | | PATHOLOGY | [address] [...] + + + + | PRODUCT | [id number] | | [facility] | | | UNIT [...] + + + + | BLOOD | [id number] | | [facility] | | | PRODUCT [...] + + + | [facility] | [address] | [place] [address] | | | PATHOLOGY | [address] [...] + + + + | PRODUCT | [id number] | | [facility] | | | UNIT [...] + + + + | BLOOD | [id number] | | [facility] | | | PRODUCT [...] DEPARTMENT OF | [address] | [place] [address] | | | PATHOLOGY | [address] [...] + + + + | PRODUCT | [id number] | | [facility] | | | UNIT [...] + + + + | BLOOD | [id number] | | [facility] | | | PRODUCT [...] + + + | [facility] | [address] | [place] [address] | | | PATHOLOGY | [address] [...] + + + + | PRODUCT | [id number] | | [facility] | | | UNIT [...] + + + + | BLOOD | [id number] | | [facility] | | | PRODUCT [...] DEPARTMENT OF | [address] | [place], [place] [address] | | | PATHOLOGY | [address] [...] + + + + | PRODUCT | [id number] | | [facility] | | | UNIT [...] + + + + | BLOOD | [id number] | | [facility] | | | PRODUCT [...] | + + + + + | [facility] | [address] | [place] [address] | | | PATHOLOGY | [address] [...] + + + + | PRODUCT | [id number] | | [facility] | | | UNIT [...] + + + + | BLOOD | [id number] | | [facility] | | | PRODUCT [...] DEPARTMENT OF | [address] | [place] [address] | | | PATHOLOGY | [address] [...] + + + + | PRODUCT | [id number] | | [facility] | | | UNIT [...] + + + + | BLOOD | [id number] | | [facility] | | | PRODUCT [...] + + + | [facility] | [address] | [place] [address] | | | PATHOLOGY | [address] [...] + + + + | PRODUCT | [id number] | | [facility] | | | UNIT [...] + + + + | BLOOD | [id number] | | [facility] | | | PRODUCT [...] DEPARTMENT OF | [address] | [place] [address] | | | PATHOLOGY | [address] [...] + + + + | PRODUCT | [id number] | | [facility] | | | UNIT [...] + + + + | BLOOD | [id number] | | [facility] | | | PRODUCT [...] + + + | [facility] | [address] | [place] [address] | | | PATHOLOGY | [address] [...] + + + + | PRODUCT | [id number] | | [facility] | | | UNIT [...] + + + + | BLOOD | [id number] | | [facility] | | | PRODUCT [...] DEPARTMENT OF | [address] | [place] [address] | | | PATHOLOGY | [address] [...] + + + + | PRODUCT | [id number] | | [facility] | | | UNIT [...] + + + + | BLOOD | [id number] | | [facility] | | | PRODUCT [...] + + + | [facility] | [address] | [place] [address] | | | PATHOLOGY | [address] [...] [facility] | [address] | [place] [address] | | | SERVICES, CORE | PARK [...] [facility] | [address] | [place] [address] | | | SERVICES, CORE | [address] [...] | + + + + + | [facility] | [address] | [place] [address] | | | [facility], CORE | [address] | | [...] | | | LABORATORY | | | [place] | | | SERVICES, | | | [...] [facility] | [address] | [place] [address] | | | SERVICES, JANELL | PARK [...] [facility] | [address] | [place] [address] | | | SERVICES, CORE | [address] [...] [facility] | [address] | [place] [address] | | | SERVICES, CORE | [address] [...] | + + + + + | [facility] | [address] | [place] [address] | | | ARON, JANELL | KRISTEN [...] 89 | 60 - 99 mg/dL | [facility] - | | | GLUCOSE, | | [...] [facility] | [address] | [place], [place] | | | [facility] | [address] | [address] | | | TESTS | | | [...] | + + + + + | [facility] | [address] | [place] [address] | | | SERVICES, | [address] [...] [facility] | [address] | [place] [address] | | | SERVICES, | [address] [...] + + + + | PRODUCT | [id number] | | [facility] | | | UNIT [...] + + + + | BLOOD | [id number] | | [facility] | | | PRODUCT [...] + + + | [facility] | [address] | [place] [address] | | | PATHOLOGY | [address] [...] + + + + | PRODUCT | [id number] | | [facility] | | | UNIT [...] + + + + | BLOOD | [id number] | | [facility] | | | PRODUCT [...] DEPARTMENT OF | [address] | [place] [address] | | | PATHOLOGY | [address] [...] + + + + | PRODUCT | [id number] | | [facility] | | | UNIT [...] + + + + | BLOOD | [id number] | | [facility] | | | PRODUCT [...] + + + | [facility] | [address] | [place] [address] | | | PATHOLOGY | [address] [...] + + + + | PRODUCT | [id number] | | [facility] | | | UNIT [...] + + + + | BLOOD | [id number] | | [facility] | | | PRODUCT [...] DEPARTMENT OF | [address] | [place] [address] | | | PATHOLOGY | [address] [...] + + + + | PRODUCT | [id number] | | [facility] | | | UNIT [...] + + + + | BLOOD | [id number] | | [facility] | | | PRODUCT [...] + + + | [facility] | [address] | [place] [address] | | | PATHOLOGY | [address] [...] + + + + | PRODUCT | [id number] | | [facility] | | | UNIT [...] + + + + | BLOOD | [id number] | | [facility] | | | PRODUCT [...] + + + | [facility] | [address] | [place] [address] | | | PATHOLOGY | [address] [...]
--- OUTSIDE RECORDS SUMMARY | ~2019-11-03 | XMS | Encounter Summary ---
Demographics + + + | Address | [address] | | | [place] [address] | + + + | Home Phone | | + + + | Preferred Language | Unknown | + + + | Marital Status | | + + + | Uatsdin Affiliation | Unknown | + + + | Race | Unknown | + + + | Ethnic Group | Unknown | + + + Author + + + | Author | [facility] | | | and [place] | + + + | Organization | [facility] | | [...] Team Providers + +------+ + | Care Or Director Name | Role | Phone | + +------+ + PCP | Unavailable | + +------+ + Encounter Details +--------+ + + + + | Date | Type | Department | Care Team | Description | +--------+ + + + + | 02/11/ | Hospital | [facility] | Veena Tobar, | | | 2017 - | Encounter | [facility] | MD [address] | | | | | CARE FLO[address] | [place] [address] | | | 02/15/ | | [address] | [phone] | | | 2017 | | [place], [place] | | | | | | [address] | | | | | | [phone] | | | +--------+ + + + [...] Date of Service: 02/15/17 1029 Status: Signed Financial Analyst Accountant: Aguila Bernard DO (Physician) [facility] Service: Hospitalist Discharge Summary Date of [...] levofloxacin + IV fluid. Cultures obtained at [facility] showed E coli s usceptible to [...] Status: DNR/DNI Follow up: Alireza Krishna MD [address], [address] [id number] Enrique Bocanegra MD [address] [facility] [address] Medication List START taking these medications [...] Date of Service: 02/15/17 1247 Status: Signed Financial Analyst Accountant: Gayatri Carrasquillo RN (Registered Nurse) Patient d/c instructions reviewed with patient. Script faxed to [facility] in [place] per pt request. Awaiting [facility] to meet with patient prior to d/c. Spouse to provide trans portation. Gayatri Carrasquillo RN ICongenaro roshan Transaction, Provider Unknown - 02/15/2017 11:03 AM PST Case Management by Morgan Richards RN at 02/15/17 1103 Author: Morgan Richards RN Service: (none) Author Type: Registered Nurse Filed: 02/15/17 1108 Date of Service: 02/15/17 1103 Status: Signed Financial Analyst Accountant: Morgan Richards RN (Registered Nurse) 02/15/17 1100 [...] Date of Service: 02/15/17 0809 Status: Addendum Financial Analyst Accountant: Giulia Albert PT (Physical Therapist) Related Notes: [...] wheeled (bedside commode) Prior Function Level of [place] Independent with functional mobility;Independent with ADLs;Assist wi [...] Response to Education: stated understanding Low - 23007 Moderate - 51469 High - 03719 History no personal factors &/or comorbidities Examination 1-2 elements Clinical Presentation stable Clinical Decision Making Complexity: Low 21500 Giulia Albert, PT 02/15/2017 12:11 PM Erin Roca DO - 02/15/2017 6:38 AM PSTFormatting of this note might be different from the briana kate. Progress Notes by Erin Turner DO at 02/15/17637 Author: Erin Turner DO Service: (none) Author Type: Physician Filed: 02/15/1732 Date of Service: 02/15/17637 Status: Signed Financial Analyst Accountant: Erin Turner DO (Physician) [facility] Service: Infectious Disease Progress Note Hospital [...] presented to the emergency d epartment at [facility] in [place]. Workup there did show significant pyuria, and [...] >60 02/15/2017 Microbiology: Urine culture collected at [facility] has greater than 100,000 colo nies of Escherichia coli which is susceptible to levofloxacin. PROBLEM LIST Principal Problem: Sepsis(995.91) due to UTI Active Problems: Crohn's disease ([facility]) GERD (gastroesophageal reflux disease) HTN (hypertension) Chronic anticoagulation Hypertension Current chronic use of systemic steroids Neuropathy Encephalopathy in sepsis Immunosuppressed status ([facility]) ASSESSMENT & PLAN Sepsis(995.91) due [...] levofloxacin day #5 of 14. Crohn's disease ([facility]) (04/12/2014) The patient has recently [...] Management by Morgan Richards RN at 02/14/17 5029 Author: Morgan Richards RN Service: (none) Author Type: Registered Nurse Filed: 02/14/17 4530 Date of Service: 02/14/17 0271 Status: Signed Financial Analyst Accountant: Morgan Richards RN (Registered Nurse) 02/14/17 1500 Discharge Planning Evaluation Admitting Diagnosis Sepsis due to UTI Anticipated Disposition Facility Type Home;Home infusion Home Infusion & Tube/Enteral Feedings [facility] I spoke with Rhianna from [facility] to follow-up on Pt. Pt. was previously established wit [facility] in [place]. IBroAguila valdez DO - 02/14/2017 3:38 PM PSTFormatting of this note might be different from the briana ginal. Progress Notes by Aguila Bernard DO at 02/14/17 5535 Author: Aguila Bernard DO Service: Hospitalist Author Type: Physician Filed: 02/14/17 4105 Date of Service: 02/14/17 8672 Status: Signed Financial Analyst Accountant: Aguila Bernard DO (Physician) PROGRESS NOTE 02/14/2017 [...] 153 Date of Service: 02/14/171529 Status: Signed Financial Analyst Accountant: Yusra Oconnor PT (Physical Therapist) 02/14/17 153 [...] Date of Service: 02/14/17 1146 Status: Signed Financial Analyst Accountant: Yusra Oconnor PT (Physical Therapist) 02/14/17 1146 PT Last Visit PT Received On 02/14/17 Reason for Treatment Deconditioning (sepsis) Requires PT Follow Up Unavailable Other Comments Comments 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 Workup there did show significant pyuria, and [...] >60 02/14/2017 Microbiology: Urine culture collected at [facility] has greater than 100,000 colo nies of a lactose fermenting gram-negative rods, further identification and susceptibility p ending. No blood cultures were sent. PROBLEM LIST Principal Problem: Sepsis(995.91) due to UTI Active Problems: Crohn's disease ([facility]) GERD (gastroesophageal reflux disease) HTN (hypertension) Chronic anticoagulation Hypertension Current chronic use of systemic steroids Neuropathy Encephalopathy in sepsis Immunosuppressed status ([facility]) ASSESSMENT & PLAN Sepsis(995.91) due to UTI / Immunosuppressed status (07/19/2014) The patient presents with sepsis in the setting of immunosuppression, with workup thus fa r most suggestive of urinary tract infection. The patient has had improving white blood cell count and resolution of fevers with levofloxacin. Await final urine culture results from [facility] outside hospital. Unfortunately, no blood cultures were sent, therefore will need surveill ance blood cultures drawn from her [facility] 1-2 weeks after completing her antibiotic therap y. Crohn's disease ([facility]) (04/12/2014) The patient has recently [...] Date of Service: 02/14/17 0506 Status: Signed Financial Analyst Accountant: Tanika Alaniz RN (Registered Nurse) Pt A+Ox4, VSS. Pt continued to c/o generalized body pain 11/18, received morphine q3h throug hout shift. Awaiting blood and urine cultures from [facility]. Tanika Alaniz RN IAyee, Makenzie Arshad MD - 02/13/2017 1:16 PM PST Progress Notes by Makenzie Raymond MD at 02/13/17 1316 Author: Makenzie Raymond MD Service: (none) Author Type: Physician Filed: 02/13/17 1734 Date of Service: 02/13/17 1316 Status: Addendum Financial Analyst Accountant: Makenzie Raymond MD (Physician) Related Notes: Original Note by Makenzie Raymond MD (Physician) filed at 02/13/17 1433 [facility] Service: Hospitalist Progress Note Pt: Smita Willingham AGE/SEX: 61 y.o. female : 1955 ROOM: [address] [place] [address] REQUESTING PROVIDER: Makenzie Raymond MD TODAY'S DATE: [...] no guarding Or rebound EXt no edema CPC alert no focality LABS: Recent Labs Lab [...] hours. No results for input(s): PHART, PO2ART, QYD7OVJ, W2DGPGFR, BEART in the last 168 hours. Recent [...] BC f/ up were send out from [facility] ER . IV fluids on board WBC [...] 02/13/1756 Date of Service: 02/13/17827 Status: Signed Financial Analyst Accountant: Erin Turner DO (Physician) [facility] Service: Infectious Disease Progress Note Hospital [...] presented to the emergency d epartment at [facility] in [place]. Workup there did show significant pyuria, and [...] culture and blood cultures were collected at [facility] jesse or to transfer. Updated reports have [...] 02/13/17728 Date of Service: 02/13/17728 Status: Signed Financial Analyst Accountant: Latha Hall RPH (Pharmacist) TPN notes: Blood [...] 02/13/17430 Date of Service: 02/13/17427 Status: Signed Financial Analyst Accountant: Tanika Alaniz RN (Registered Nurse) Pt A+Ox4, but weak and lethargic. VSS. Morphine x3 given for generalized pain. TPN running through port. Pt incontinent of urine and sometimes stool. Tanika Alaniz, RN onver roshan Main, Provider Unknown - 02/12/2017 3:59 PM PDT Case Management by Terrance Madsen MS, SUPERVISOR PHOTOSTAT at 02/12/17 1957 Author: Terrance Madsen MS, SUPERVISOR PHOTOSTAT Service: (none) Author Type: Physician President Filed: 02/12/17 6648 Date of Service: 02/12/17 9126 Status: Signed Financial Analyst Accountant: Terrance Madsen MS, MSW (Physician President) 02/12/17 2778 Discharge Planning Evaluation Admitting Diagnosis Sepsis due [...] of care post d/c. Pt resides at [facility] with spouse Kole in [facility]. Pt does not drive since she has been ill., her s pouse is able to drive and can come see her. Pt reports a significant history of feeling ill and not be at home lately. She Power of Glass Beveler No Anticipated Discharge Plan Post Acute Care [...] who presents to the Emergency Department in [facility]. She f ollows up with Dr. Coburn [...] ER. [facility]. Patient's PCP is: No primary care provider on file. - Dr. Fernandes. Patient's insurance: medicare, [employer] care Coverage concerns:none reported Medication coverage/concerns: none Community resources utilized / needed: uses [place] [facility], [facility] [place] [...] 02/12/171406 Date of Service: 02/12/171406 Status: Signed Financial Analyst Accountant: Latha Hall RPH (Pharmacist) Pharmacy Consult for INITIATION of Parenteral Nutrition Smita Willingham 61 y.o. female Ht Readings from Last 1 Encounters: 02/11/17 1.727 m (5' 8") Wt Readings from Last 1 Encounters: 02/11/17 74.5 kg (164 lb 4.8 oz) Music Publicist recommendations: Recommendations Recommended parenteral nutritional needs for [...] Sofía Chamberlain RPH at 02/12/17 1224 Author: Sofaí Chamberlain RPH Service: Pharmacy Author Type: Pharmacist Filed: 02/12/17 5835 Date of Service: 02/12/17 1224 Status: Signed Financial Analyst Accountant: Sofía Chamberlain RPH (Pharmacist) Clinical Pharmacy Note: [...] Notes by Sanjuana Spivey RD at 02/12/17 1966 Author: Sanjuana Spivey RD Service: (none) Author Type: Registered Dietitian Filed: 02/12/17 1142 Date of Service: 02/12/17 1140 Status: Signed Financial Analyst Accountant: Sanjuana Spivey RD (Registered Dietitian) 02/12/17 1128 [...] Estimated Energy Needs Total Energy Estimated Needs 9690-0542 kcal Method for Estimating Needs 28-32 kcal/kg [...] Date of Service: 02/12/17 1122 Status: Addendum Financial Analyst Accountant: Makenzie Raymond MD (Physician) Related Notes: Original Note by Makenzie Raymond MD (Physician) filed at 02/12/17 1155 [facility] Service: Hospitalist Progress Note Pt: Smita Willingham AGE/SEX: 61 y.o. female : 1955 ROOM: [address] [place] [address] REQUESTING PROVIDER: Makenzie Raymond MD TODAY'S DATE: [...] no guarding Or rebound EXt no edema CPC alert no focality LABS: Recent Labs Lab [...] hours. No results for input(s): PHART, PO2ART, SOP5GUJ, S5OYQAUG, BEART in the last 168 hours. Recent [...] UC BC f/ up send out from [facility] ER C.Diff was negative delirium caution h/ [...] 02/12/17523 Date of Service: 02/12/17518 Status: Signed Financial Analyst Accountant: Tanika Alaniz RN (Registered Nurse) Pt received this shift from [facility] with UTI and complex GI hx. [...] 02/11/172207 Date of Service: 02/11/172153 Status: Signed Financial Analyst Accountant: Veena Tobar MD (Physician) [facility] Service: Hospitalist Admission History & Physical [...] who presents to the Emergency Department in [place] with increasi ng nausea, vomiting and weakness. [...] SETON PLACEMENT; Surgeon: Enrique Bocanegra MD; Location: [facility]; Service: General; Laterality: N/A; APPENDECTOMY CHOLECYSTECTOMY ESOPHAGOGASTRODUODENOSCOPY Left 08/06/2015 Procedure: ESOPHAGOGASTRODUODENOSCOPY; Surgeon: Sheng Rios MD; Location: [facility]; Service: Gastroenterology; Laterality: Left; ESOPHAGOGASTRODUODENOSCOPY N/A 04/21/2014 Procedure: ESOPHAGOGASTRODUODENOSCOPY; Surgeon: Bony Petty MD; Location: [facility] BED[facility]IDE PROCEDURE; Service: Gastroenterology; Laterality: N/A; HYSTERECTOMY LAPAROTOMY N/A 04/23/2014 Procedure: EXPLORATION - LAPAROTOMY; Surgeon: Bogdan Moser DO; Location: [facility] O R; Service: General; [...] was already given in the ER in [place]. Sodium level is 133, potassium 4.6, chloride [...] Urine culture and blood cultures done at [place] to be followed. For now as per [...] Consult* by Sanjuana Spivey RD at 02/12/17 8154 Author: Sanjuana Spivey RD Service: (none) Author Type: Registered Dietitian Filed: 02/12/17 0563 Date of Service: 11/04/17 1433 Status: Signed Financial Analyst Accountant: Sanjuana Spivey RD (Registered Dietitian) 02/12/17 1429 Subjective Timepoint Follow up (consult) Pt c/o Consult received from pharmacy, pharmacy received information regarding home TPN. Diet Experience Home Nutrition Support Per pharmacy, home TPN is provided by [email or web address] [place]. Home TPN consists of 100 g dextrose, [...] Date of Service: 02/12/17 1223 Status: Signed Financial Analyst Accountant: Erin Turner DO (Physician) [facility] Service: Infectious Disease Initial Consult Note [...] initially presented to the emergency department at [facility] in [place]. 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 Chronic diarrhea COPD (chronic obstructive pulmonary disease) ([facility]) Crohn's disease (HCC) Deep vein thrombosis (DVT) ([facility]) right leg and then travelled to spleen Depression E-coli UTI Embolism and thrombosis of splenic artery Gastroesophageal reflux disease with hiatal hernia GERD (gastroesophageal reflux disease) Hemorrhage of gastrointestinal tract, unspecified Hypertension Hypokalemia 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) Joint pain Microcytic anemia Neuromuscular disorder ([facility]) left leg numbness, severe tingling, shooting pain down leg Neuropathy Osteoporosis Other chronic pain Pyelonephritis Recurrent aphthous ulcer Sepsis ([facility]) Past Surgical History Procedure Laterality Date ABDOMINAL SURGERY ANAL FISTULA SETON PLACEMENT N/A 10/17/2015 Procedure: ANAL FISTULA SETON PLACEMENT; Surgeon: Enrique Bocanegra MD; Location: [facility] OR; Service: General; Laterality: N/A; APPENDECTOMY CHOLECYSTECTOMY ESOPHAGOGASTRODUODENOSCOPY Left 08/06/2015 Procedure: ESOPHAGOGASTRODUODENOSCOPY; Surgeon: Sheng Rios MD; Location: [facility]; Service: Gastroenterology; Laterality: Left; ESOPHAGOGASTRODUODENOSCOPY N/A 04/21/2014 Procedure: ESOPHAGOGASTRODUODENOSCOPY; Surgeon: Bony Petty MD; Location: [facility] BED[facility]IDE PROCEDURE; Service: Gastroenterology; Laterality: N/A; HYSTERECTOMY LAPAROTOMY N/A 04/23/2014 Procedure: EXPLORATION - LAPAROTOMY; Surgeon: Bogdan Moser DO; Location: [facility] MAIN O R; Service: General; Laterality: N/A; LYSIS OF ADHESIONS PORTACATH PLACEMENT Left SMALL INTESTINE SURGERY SPLENECTOMY, TOTAL N/A 04/23/2014 Procedure: SPLENECTOMY; Surgeon: Bogdan Moser DO; Location: [facility] MAIN OR; Service: General; Laterality: [...] culture and blood cultures were collected at [facility] jesse or to transfer. Final reports will [...] 02/15/17854 Date of Service: 02/15/17854 Status: Signed Financial Analyst Accountant: Jhonny Jeong RN (Registered Nurse) Problem: Pain [...] Care by Linh Narayan RN at 02/14/17 8398 Author: Linh Narayan RN Service: (none) Author Type: Registered Nurse Filed: 02/14/17 5198 Date of Service: 02/14/172357 Status: Signed Financial Analyst Accountant: Linh Narayan RN (Registered Nurse) Problem: Pain [...] Care by Catherine Bashir RN at 02/14/17 386 Author: Catherine Bashir RN Service: (none) Author Type: Registered Nurse Filed: 02/14/171356 Date of Service: 02/14/171356 Status: Signed Financial Analyst Accountant: Catherine Bashir RN (Registered Nurse) Problem: Safety [...] 02/13/172248 Date of Service: 02/13/172248 Status: Signed Financial Analyst Accountant: Tanika Alaniz RN (Registered Nurse) Problem: Pain [...] 1644 Date of Service: 02/13/17842 Status: Signed Financial Analyst Accountant: Jhonny Jeong RN (Registered Nurse) Pt will [...] 02/12/172340 Date of Service: 02/12/172340 Status: Signed Financial Analyst Accountant: Tanika N Jansons, RN (Registered Nurse) Problem: [...] 151 Date of Service: 02/12/171507 Status: Signed Financial Analyst Accountant: Irene Ramon RN (Registered Nurse) Problem: Pain [...] 02/12/17216 Date of Service: 02/12/17216 Status: Signed Financial Analyst Accountant: Tanika Alaniz RN (Registered Nurse) Problem: Pain [...] | | Fingerstick | performed at [facility];[address] | | LAB | | | | [address];[place], [place] | | | | | | [address] | | | | + + + [...] | | Fingerstick | performed at [facility];[address] | | LAB | | | | [address];[place] | | | | | | [address] | | | | + + + [...] | | | | performed at [facility] | | | | | | [address] [facility];[place], [place] | | | | | | [address] | | | | + + + [...] | | | | performed at [facility];[address] | | | | | | [facility];[place], [place] | | | | | | [address] | | | | | |HYPO | | | | | |1+ | | | | | |TARGET | | | | | |1+ | | | | | |OVALO | | | | | |Testing performed at [facility];[address] [facility];[place] [address] | | | | | | | [...] | | | | performed at [facility];[address] | | LAB | | | | [address];[place], [place] | | | | | | [address] [...] | | | | performed at [facility];[address] | | LAB | | | | [address];[place] | | | | | | [address] | | | | + + + [...] | | | | | at [facility];[address] [place] [address] | | | | | | [facility];[place] [address] | | | | + + [...] | | Fingerstick | performed at [facility];[address] | | LAB | | | | [address];[place] | | | | | | [address] | | | | + + + [...] | | Fingerstick | performed at [facility];[address] | | LAB | | | | [address];[place], [place] | | | | | | [address] | | | | + + + [...] | | Fingerstick | performed at [facility];[address] | | LAB | | | | [address];[place] | | | | | | [address] | | | | + + + [...] | | Fingerstick | performed at [facility];[address] | | LAB | | | | [address];[place] | | | | | | [address] | | | | + + + [...] | | Fingerstick | performed at [facility];[address] | | LAB | | | | [address];[place] | | | | | | [address] | | | | + + + [...] | | | | performed at [facility];[address] | | | | | | [address];[place], [place] | | | | | | [address] | | | | + + + [...] | | | | | at [facility];[address];[place] [address] | | | | | |ANISO | | | | | |1+ | | | | | |OVALO | | | | | |1+ | | | | | |TARGET | | | | | |NORMAL PLT MORPH | | | | | |Testing performed at [facility];[address] [place] [address];[place] [address] | | | | | | | [...] | | | | performed at [facility];[address] | | LAB | | | | [address];[place] | | | | | | [address] [...] LAB | | | | performed at [facility];[address] | | | | | | [address];[place], [place] | | | | | | [address] | | | | + + + [...] | | | | | at [facility];[address] [place] [address] | | | | | | [facility];[place] [address] | | | | + + + [...] | | Fingerstick | performed at [facility];[address] | | LAB | | | | [address];[place] | | | | | | [address] | | | | + + + [...] | | Fingerstick | performed at [facility];[address] | | LAB | | | | [address];[place], [place] | | | | | | [address] | | | | + + + [...] | | Fingerstick | performed at [facility];[address] | | LAB | | | | [address];[place], [place] | | | | | | [address] | | | | + + + [...] | | | es | performed at [facility], [address] | | LAB | | | | [address], | | | | | | [place] [address] | | | | + + + [...] | | | | | [place] [address] | | | | + + + [...] | | Fingerstick | performed at [facility];[address] | | LAB | | | | [address];[place], [place] | | | | | | [address] | | | | + + + [...] | | | | performed at [facility];[address] | | LAB | | | | [address];[place], [place] | | | | | | [address] | | | | + + + [...] | | | | performed at [facility] | | | | | | [facility];[place], [place] | | | | | | [address] | | | | + + + + + + + + | Specimen | + + | | + + + +---------+ + + | Performing | Address | City/State[facility] | Phone Number | | Organization | [...] | | | | performed at [facility];[address] | | | | | | [address];[place] | | | | | | [address] | | | | + + + [...] | | | | g performed at [facility], [address] | | | | | | [address], | | | | | | [place] [address] | | | | | |HYPO | | | | | |2+ | | | | | |TARGET | | | | | |1+ | | | | | |OVALO | | | | | |1+ | | | | | |ACANTHO | | | | | |Testing performed at [facility], [address] [place] [address] | | | | | | | [...] | | | | performed at [facility];[address] | | LAB | | | | [address];[place] | | | | | | [address] | | | | + + + [...] LAB | | | | performed at [facility] | | | | | | [address];[place], [place] | | | | | | [address] | | | | + + + [...] | | | | | at [facility];[address] [place] [address] | | | | | | [facility];[place] [address] | | | | + + + [...] | | Fingerstick | performed at [facility];[address] | | LAB | | | | [address];[place] | | | | | | [address] | | | | + + + [...] | | Fingerstick | performed at [facility];[address] | | LAB | | | | [address];[place] | | | | | | [address] | | | | + + + [...] | | Fingerstick | performed at [facility];[address] | | LAB | | | | [address];[place] | | | | | | [address] | | | | + + + [...] | | | | performed at [facility];[address] | | | | | | [address];[place], [place] | | | | | | [address] | | | | + + + [...] | | | | performed at [facility] [facility] | | | | | | [address]ored[address];[place] | | | | | | [id number] | | | | + + + [...] | | | | performed at [facility];[address] | | LAB | | | | [address];[place], [place] | | | | | | [id number] | | | | + + + [...] | | | | performed at [facility] | | LAB | | | | [address] [facility];[place], [place] | | | | | | [id number] | | | | + + + [...] | | | | | at [facility];[address] | | | | | | [facility];[place] [address] | | | | + + + [...] C.difficile. | | | Testing performed at [facility];[address] [place] [address];[place] [address] | | + + + + +---------+ [...] | | | | performed at [facility];[address] | mmol/L | LAB | | | | [address];[place], [place] | | | | | | [phone] | | | | + + + [...] | | | | performed at [facility];[address] | mmol/L | LAB | | | | [address]oredo;[place] | | | | | | [phone] | | | | + + + [...] | | | Patient | performed at [facility];[address] | | LAB | | | | [address];[place], [place] | | | | | | [phone] | | | | + + + [...] | | | | performed at [facility] | | | | | | [facility];[place], [place] | | | | | | [phone] | | | | + + + [...]
--- OUTSIDE RECORDS SUMMARY | ~2019-11-03 | XMS | Encounter Summary ---
Demographics + + + | Address | [address] | | | [place] [address] | + + + | Home Phone [...] Author | [facility] [...] Team Providers + +------+ + | Care Land Mobile Radio Technician Name | Role | Phone | + +------+ + PCP | Unavailable | + +------+ + Encounter Details +--------+ + + + + | Date | Type | Department | Care Team | Description | +--------+ + + + + | 08/04/ | Hospital | [facility] | Chace Benson | Crohn's disease of | | 2016 - | Encounter | [facility]ICAL [facility] | MD Alex Steve | large intestine with | | | | CARE FLOOR [address] [place], [place] | complication (HCC) | | 08/07/ | | [address] | [address] | | | 2015 | | [place], [place] | | | | | | [address] | | | | | | [phone] | | | +--------+ + + + [...] Summaries by Deanne Henson MD at 08/08/15 1436 Author: Deanne Henson MD Service: Internal Medicine Author Type: Physician Filed: 08/08/15 1441 Date of Service: 08/08/151434 Status: Signed Decal Decorator: Deanne Henson MD (Physician) [facility] Service: Hospitalist Physician Discharge Summary Patient [...] She presented to linda ency department at [facility] today with complaints of diarrhea, vomiting, [...] she came to the emergency department of [facility], where she was found to have INR of 12.9. NG tube was passed and return was blood-t inged. She was given 2 units of fresh frozen plasma and 10 mg of vitamin K, and patient was transferred to this hospital as there is no GI backup at [facility]. Hospital Course: The pt admitted for vomiting blood with inr > 12. She took extra coumadin pills. She got ffp, vit K, and tx to [facility]. Iv fluds, iv ppi gtt started. [...] x 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 ENDOSCOPY; Service: Gastroenterology; Laterality: Left; [...] Disposition: Home or Self Care Follow up: [facility] [address] [facility] [address] [place] [address] Please resume your coumadin therapy services within the next 3 days after discharge. 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 You may get the following medications [...] 1415 Date of Service: 08/08/151412 Status: Signed Decal Decorator: Linh Perez RN (Registered Nurse) Met with pt regarding discharge planning. Pt states she is followed for her coumadin therap hy with [facility]. Pt states she will resume her coumadin servi krystyna with them upon d/c. No other needs at this time. Froylan Perez RN, CM. [phone] Deanne Galaviz MD - 08/07/2015 10:12 AM PDTFormatting of this note might be different from the or iginal. Progress Notes by Deanne Henson MD at 08/07/15 1012 Author: Deanne Henson MD Service: Internal Medicine Author Type: Physician Filed: 08/07/15 1017 Date of Service: 08/07/151011 Status: Signed Decal Decorator: Deanne Henson MD (Physician) [facility] Service: Hospitalist Progress Note Hospital Day: [...] She presented to linda rgency department at [facility] today with complaints of diarrhea, vomiting, [...] she came to the emergency department of [facility], where she was found to have INR of 12.9. NG tube was passed and return was blood-t inged. She was given 2 units of fresh frozen plasma and 10 mg of vitamin K, and patient was transferred to this hospital as there is no GI backup at [facility]. Scheduled Medications baclofen 10 mg Oral [...] prefers vanco.. Mentions seeing dr Townsend at [facility] for fistula b/w vagina, colon. Get records. Her u/a noted. Bactrim po. The plan has explained in detail to the patient , all questions were answered.All data was reviewed. Disposition: home Code Status: Full Code Deanne Henson MD 08/07/2015 10:12 AM onversion Transactio n, Provider Unknown - 08/06/2015 9:25 PM PDT Nurse Progress Note by Celsa Del Castillo RN at 08/06/15 0443 Author: Celsa Del Castillo RN Service: (none) Author Type: Registered Nurse Filed: 08/07/15 0644 Date of Service: 08/06/152124 Status: Addendum Decal Decorator: Celsa Del Castillo RN (Registered Nurse) Related [...] Author: LEVI Gallardo Service: (none) Author Type: Product Support Specialist Filed: 08/06/15 1624 Date of Service: 08/06/151621 Status: Signed Decal Decorator: LEVI Gallardo (Product Support Specialist) 08/06/15 1600 Discharge Planning Evaluation Admitting Diagnosis Upper GI Bleed Readmission No Living Arrangements Spouse/significant other Support Systems Spouse/significant other Independent with ADL's Yes Independent with Mobility Yes Mental Status Oriented Anticipated Discharge Plan Post Acute Care Needs None at this time Resources Financial concerns No Transportation issues No Patient/Family concerns No Prescription Plan Yes Anticipated Disposition Facility Type Home [employer] met with Pt and discussed discharge planning, [...] needed: None Anticipated DCP: Home 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 Progress Notes by Deanne Henson MD at 08/06/15 7817 Author: Deanne Henson MD Service: Internal Medicine Author Type: Physician Filed: 08/06/15 2988 Date of Service: 08/06/151257 Status: Addendum Decal Decorator: Deanne Henson MD (Physician) Related Notes: Original Note by Deanne Henson MD (Physician) filed at 08/06/15 0327 [facility] Service: Hospitalist Progress Note Hospital Day: [...] She presented to linda rgency department at [facility] today with complaints of diarrhea, vomiting, [...] she came to the emergency department of [facility], where she was found to have INR of 12.9. NG tube was passed and return was blood-t inged. She was given 2 units of fresh frozen plasma and 10 mg of vitamin K, and patient was transferred to this hospital as there is no GI backup at [facility]. Scheduled Medications hydrocortisone sodium succinate PF [...] recurrent uti's. Mentions seeing dr Townsend at [facility] for fistula b/w vagina, colon. Get [...] 08/06/1545 Date of Service: 08/06/1545 Status: Signed Decal Decorator: Hamilton Drummond RPH (Pharmacist) Note ccl 45.9ml/min [...] 0854 Date of Service: 08/05/152032 Status: Addendum Decal Decorator: Chace Benson MD (Physician) Related Notes: Original Note by Chace Benson MD (Physician) filed at 08/05/15 54 [facility] Service: Hospitalist Admission History & Physical Date of Admission: 08/05/2015 Requesting Physician: Transfer from [facility]. Reason for Admission: Hematemesis. Abdominal pain, [...] She presented to linda rgency department at [facility] today with complaints of diarrhea, vomiting, [...] she came to the emergency department of [facility], where she was found to have INR of 12.9. NG tube was passed and return was blood-t inged. She was given 2 units of fresh frozen plasma and 10 mg of vitamin K, and patient was transferred to this hospital as there is no GI backup at [facility]. 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 emergency department this morning is as [...] fresh frozen plasma and vitamin K at [facility]. I will repeat INR again. 5. [...] Consult* by Sheng Alvarado MD at 08/06/15 0257 Author: Sheng Alvarado MD Service: (none) Author Type: Physician Filed: 08/06/15 7769 Date of Service: 08/06/15 9992 Status: Signed Decal Decorator: Sheng Alvarado MD (Physician) [facility] Service: Gastroenterology Initial Consult Note Date [...] Coumadin. She presented to emergency department at [facility] today with complaints of watery diarrhea [...] came to the emergency d epartment of [facility], where she was found to have INR of 12.9. NG tube was pass ed and return was blood-tinged. She was given 2 units of fresh frozen plasma and 10 mg of vi tamin K, and patient was transferred to this hospital as there is no GI backup at [facility]. Repeat INR after admission was 1.2. 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 Procedure: SPLENECTOMY; Surgeon: Bogdan Moser DO; Location: [facility] MAIN OR; Service: General; Laterality: [...] I will leave the plan of terminal gauger treatment for her Crohn's disease to her [...] Note by Sheng Alvarado MD at 08/06/15 6371 Author: Sheng Alvarado MD Service: (none) Author Type: Physician Filed: 08/06/15 1636 Date of Service: 08/06/15 1631 Status: Signed Decal Decorator: Sheng Alvarado MD (Physician) [facility] Service: Gastroenterology ENDOSCOPY SUITE PROCEDURE NOTE [...] | | | | | performed at [facility];[address] | | | | | | [address] [facility];[place], [place] | | | | | | [address] | | | | + + + [...] L | LAB | | | | [facility], [address] [facility] | | | | | | [place] | | | | | | [address] | | | | + + +---- + + + | Non- | 3.36 (L)Comment: Testing | 3.7 0 - 5.10 | EXTERNAL | | | Red Blood | performed at [facility], [address] | M/u L | LAB | | | Cells | [address] [place], | | | | | Counted | [place] [address] | | | | + + +---- + + + | Hemoglobin | 7.8 (L)Comment: Testing | 11. 3 - 15.5 | EXTERNAL | | | | performed at [facility], [address] | g/d L | LAB | | | | [address] [place], | | | | | | [place] [address] | | | | + + +---- + + + | Hematocrit, | 26.6 (L)Comment: Testing | 34. 0 - 46.0 % | EXTERNAL | | | POC | performed at [facility], [address] | | LAB | | | | [address] [place], | | | | | | [place] [address] | | | | + + +---- + + + | MCV | 79.1 (L)Comment: Testing | 80. 0 - 100.0 fl | EXTERNAL | | | | performed at [facility], [address] | | LAB | | | | [address] [place], | | | | | | [place] [address] | | | | + + +---- + + + | MCH | 23.2 (L)Comment: Testing | 27. 0 - 34.0 pg | EXTERNAL | | | | performed at [facility], [address] | | LAB | | | | [address] [place], | | | | | | [place] [address] | | | | + + +---- + + + | MCHC | 29.3 (L)Comment: Testing | 32. 0 - 35.5 | EXTERNAL | | | | performed at [facility], [address] | g/d L | LAB | | | | [place], | | | | | | [place] [address] | | | | + + +---- + + + | RDW-CV | 61.7 (H)Comment: Testing | 37 - 53 fl | EXTERNAL | | | | performed at [facility], [address] | | LAB | | | | [address], | | | | | | [place] [address] | | | | + + +---- + + + | Platelet | 418 (H)Comment: Testing | 150 - 400 K/uL | EXTERNAL | | | Count | performed at [facility], [address] | | LAB | | | Plasma | [place], | | | | | | [place] [address] | | | | + + +---- + + + | MPV | 8.3Comment: Testing | fl | EXTERNAL | | | | performed at [facility], [address] | | LAB | | | | [address], | | | | | | [place] [address] | | | | + + +---- + + + | Differentia | AUTOMATEDComment: | | EXTERNAL | | | l Type | Testing performed at | | LAB | | | | [facility], [address] | | | | | | [place] | | | | | | [address] | | | | + + +---- + + + | % Segmented | 59.50Comment: Testing | % | EXTERNAL | | | | performed at [facility], [address] | | LAB | | | Neutrophils | [address], | | | | | | [place] [address] | | | | + + +---- + + + | % | 29.26Comment: Testing | % | EXTERNAL | | | Lymphocytes | performed at [facility], [address] | | LAB | | | | [place], | | | | | | [place] [address] | | | | + + +---- + + + | % Monocytes | 9.64Comment: Testing | % | EXTERNAL | | | | performed at [facility], [address] | | LAB | | | [address], | | | | | | [place] [address] | | | | + + +---- + + + | % | 0.54Comment: Testing | % | EXTERNAL | | | Eosinophils | performed at [facility], [address] | | LAB | | | | [address], | | | | | | [place] [address] | | | | + + +---- + + + | % Basophils | 1.06Comment: Testing | % | EXTERNAL | | | | performed at [facility], [address] | | LAB | | | | [place], | | | | | | [place] [address] | | | | + + +---- + + + | Absolute | 9.61 (H)Comment: Testing | 1.9 0 - 7.40 | EXTERNAL | | | Segmented | performed at [facility], [address] | K/u L | LAB | | | Neutrophils | [address] [place], | | | | | | [place] [address] | | | | + + +---- + + + | Absolute | 4.73 (H)Comment: Testing | 1.0 0 - 3.90 | EXTERNAL | | | Lymphocytes | performed at [facility], [address] | K/u L | LAB | | | | [address] [place], | | | | | | [place] [address] | | | | + + +---- + + + | Absolute | 1.56 (H)Comment: Testing | 0.0 0 - 0.80 | EXTERNAL | | | Monocytes | performed at [facility], [address] | K/u L | LAB | | | | [address], | | | | | | [place] [address] | | | | + + +---- + + + | Absolute | 0.09Comment: Testing | 0.0 0 - 0.50 | EXTERNAL | | | Eosinophils | performed at [facility], [address] | K/u L | LAB | | | | [address], | | | | | | [place] [address] | | | | + + +---- + + + | Absolute | 0.17 (H)Comment: Testing | 0.0 0 - 0.10 | EXTERNAL | | | Basophils | performed at [facility], [address] | K/u L | LAB | | | | [address] [facility], | | | | | | [place] [address] | | | | + + +---- + + + | RBC | 2+Comment: | | EXTERNAL | | | Morphology | ANISO1+HYPO1+MICRO2+TARG | | LAB | | | | ETNORMAL PLT | | | | | | MORPHTesting performed | | | | | | at [facility], [address] | | | | | | [address] [place], | | | | | | [place] [address] | | | | | |2+ | | | | | |TARGET | | | | | |NORMAL PLT MORPH | | | | | |Testing performed at [facility], [address] [facility], [place] [address] | | | | | | | | | | + + +---- + + + | Differentia | SLIDE SCANNED, AGREES | | EXTERNAL | | | l Comments | WITH AUTOMATED | | LAB | | | | RESULTS.Comment: Testing | | | | | | performed at [facility], [address] | | | | | | [address] [place], | | | | | | [place] [address] | | | | + + +---- [...] [place] | | | | | | [address] | | | | + + +---- + + + | Non- | 3.47 (L)Comment: Testing | 3.7 0 - 5.10 | EXTERNAL | | | Red Blood | performed at [facility], [address] | M/u L | LAB | | | Cells | [address] [place], | | | | | Counted | [place] [address] | | | | + + +---- + + + | Hemoglobin | 8.2 (L)Comment: Testing | 11. 3 - 15.5 | EXTERNAL | | | | performed at [facility], [address] | g/d L | LAB | | | | [address] [place], | | | | | | [place] [address] | | | | + + +---- + + + | Hematocrit, | 27.5 (L)Comment: Testing | 34. 0 - 46.0 % | EXTERNAL | | | POC | performed at [facility], [address] | | LAB | | | | [place], | | | | | | [place] [address] | | | | + + +---- + + + | MCV | 79.1 (L)Comment: Testing | 80. 0 - 100.0 fl | EXTERNAL | | | | performed at [facility], [address] | | LAB | | | | [address] [place], | | | | | | [place] [address] | | | | + + +---- + + + | MCH | 23.6 (L)Comment: Testing | 27. 0 - 34.0 pg | EXTERNAL | | | | performed at [facility], [address] | | LAB | | | | [address] [place], | | | | | | [place] [address] | | | | + + +---- + + + | MCHC | 29.8 (L)Comment: Testing | 32. 0 - 35.5 | EXTERNAL | | | | performed at [facility], [address] | g/d L | LAB | | | | [address] [place], | | | | | | [place] [address] | | | | + + +---- + + + | RDW-CV | 62.1 (H)Comment: Testing | 37 - 53 fl | EXTERNAL | | | | performed at [facility], [address] | | LAB | | | | [address] [place], | | | | | | [place] [address] | | | | + + +---- + + + | Platelet | 419 (H)Comment: Testing | 150 - 400 K/uL | EXTERNAL | | | Count | performed at [facility], [address] | | LAB | | | Plasma | [address] [place], | | | | | | [place] [address] | | | | + + +---- + + + | MPV | 8.3Comment: Testing | fl | EXTERNAL | | | | performed at [facility], [address] | | LAB | | | | [place], | | | | | | [place] [address] | | | | + + +---- + + + | Differentia | AUTOMATEDComment: | | EXTERNAL | | | l Type | Testing performed at | | LAB | | | | [facility], [address] | | | | | | [place] | | | | | | [address] | | | | + + +---- + + + | % Segmented | 82.12Comment: Testing | % | EXTERNAL | | | | performed at [facility], [address] | | LAB | | | Neutrophils | [place], | | | | | | [place] [address] | | | | + + +---- + + + | % | 10.53Comment: Testing | % | EXTERNAL | | | Lymphocytes | performed at [facility], [address] | | LAB | | | | [place], | | | | | | [place] [address] | | | | + + +---- + + + | % Monocytes | 6.70Comment: Testing | % | EXTERNAL | | | | performed at [facility], [address] | | LAB | | | | [address], | | | | | | [place] [address] | | | | + + +---- + + + | % | 0.05Comment: Testing | % | EXTERNAL | | | Eosinophils | performed at [facility], [address] | | LAB | | | | [address], | | | | | | [place] [address] | | | | + + +---- + + + | % Basophils | 0.60Comment: Testing | % | EXTERNAL | | | | performed at [facility], [address] | | LAB | | | | [address], | | | | | | [place] [address] | | | | + + +---- + + + | Absolute | 15.31 (H)Comment: | 1.9 0 - 7.40 | EXTERNAL | | | Segmented | Testing performed at | K/u L | LAB | | | Neutrophils | [facility], [address] | | | | | | [place] | | | | | | [address] | | | | + + +---- + + + | Absolute | 1.96Comment: Testing | 1.0 0 - 3.90 | EXTERNAL | | | Lymphocytes | performed at [facility], [address] | K/u L | LAB | | | | [address] [place], | | | | | | [place] [address] | | | | + + +---- + + + | Absolute | 1.25 (H)Comment: Testing | 0.0 0 - 0.80 | EXTERNAL | | | Monocytes | performed at [facility], [address] | K/u L | LAB | | | | [address] [place], | | | | | | [place] [address] | | | | + + +---- + + + | Absolute | 0.01Comment: Testing | 0.0 0 - 0.50 | EXTERNAL | | | Eosinophils | performed at [facility], [address] | K/u L | LAB | | | | [address] [place], | | | | | | [place] [address] | | | | + + +---- + + + | Absolute | 0.11 (H)Comment: Testing | 0.0 0 - 0.10 | EXTERNAL | | | Basophils | performed at [facility], [address] | K/u L | LAB | | | | [address], | | | | | | [place] [address] | | | | + + +---- + + + | RBC | 2+Comment: | | EXTERNAL | | | Morphology | ANISO2+HYPO1+TARGET1+POI | | LAB | | | | KNORMAL PLT MORPHTesting | | | | | | performed at [facility], [address] | | | | | | [address] [facility], | | | | | | [place] [address] | | | | | |TARGET | | | | | |1+ | | | | | |POIK | | | | | |NORMAL PLT MORPH | | | | | |Testing performed at [facility], [facility] [place] [address] | | | | | | | [...] EXTERNAL | | | | performed at [facility];[address] | mmol/L | LAB | | | | [address] [place], [place] | | | | | | [address] | | | | + + + [...] EXTERNAL | | | | performed at [facility];[address] | | LAB | | | | [address];[place], [place] | | | | | | [address] | | | | + + + [...] EXTERNAL | | | | performed at [facility] | | LAB | | | | [address] [place], [place] | | | | | | [address] | | | | + + + [...] EXTERNAL | | | | performed at [facility];[address] | mmol/L | LAB | | | | [address] [place] | | | | | | [address] | | | | + + + [...] EXTERNAL | | | | performed at [facility] | | LAB | | | | [address] [place], [place] | | | | | | [address] | | | | + + + [...] EXTERNAL LAB | | Testing performed at [facility];[address] [place] [address];[place] [address] TOXIN A | | | NEGATIVE Testing performed | | | at [facility];[address] [place] [address];[place] [address] C DIFF INTERPRETATION | | | Positive [...] toxin. Testing | | | performed at [facility];[address] [facility];[place] [address] | | + + + + +---------+ [...] LAB | | C.diffAbnormal Testing performed at [facility];[address] [place] [address];[place], [place] | | | [phone] NAP1 BI 027 NAP1 BI | | | PRESUMPTIVE NEGATIVE Detection of 027 NAP1 BI strains of C. difficile | | | is presumptive and for epidemiological purposes and not intended to | | | guide or monitor treatment for C. difficile infections. Testing | | | performed at [facility];[address] [place] [address];[place] [address] | | + + + + +---------+ [...] EXTERNAL | | | | performed at [facility];[address] | g/dL | LAB | | | | [address];[place] | | | | | | [address] | | | | + + + + + + | Hematocrit, | 29.1 (L)Comment: Testing | 34.0 - 46.0 % | EXTERNAL | | | POC | performed at [facility];[address] | | LAB | | | | [address];[place] | | | | | | [address] | | | | + + + [...] EXTERNAL | | | | performed at [facility];[address] | g/dL | LAB | | | | [address];[place] | | | | | | [address] | | | | + + + + + + | Hematocrit, | 28.9 (L)Comment: Testing | 34.0 - 46.0 % | EXTERNAL | | | POC | performed at [facility];[address] | | LAB | | | | [address];[place] | | | | | | [address] | | | | + + + [...] EXTERNAL | | | | performed at [facility];[address] | mmol/L | LAB | | | | [address];[place], [place] | | | | | | [address] | | | | + + + [...] | | | | | performed at [facility] | | | | | | [address];[place], [place] | | | | | | [address] | | | | + + + [...] | | | | [facility], [address] | | | | | | [place] | | | | | | [address] | | | | + + +---- + + + | Non- | 3.89Comment: Testing | 3.7 0 - 5.10 | EXTERNAL | | | Red Blood | performed at [facility], [address] | M/u L | LAB | | | Cells | [address] [place], | | | | | Counted | [place] [address] | | | | + + +---- + + + | Hemoglobin | 9.1 (L)Comment: Testing | 11. 3 - 15.5 | EXTERNAL | | | | performed at [facility], [address] | g/d L | LAB | | | | [place], | | | | | | [place] [address] | | | | + + +---- + + + | Hematocrit, | 30.7 (L)Comment: Testing | 34. 0 - 46.0 % | EXTERNAL | | | POC | performed at [facility], [address] | | LAB | | | | [place], | | | | | | [place] [address] | | | | + + +---- + + + | MCV | 78.9 (L)Comment: Testing | 80. 0 - 100.0 fl | EXTERNAL | | | | performed at [facility], [address] | | LAB | | | | [place], | | | | | | [place] [address] | | | | + + +---- + + + | MCH | 23.4 (L)Comment: Testing | 27. 0 - 34.0 pg | EXTERNAL | | | | performed at [facility], [address] | | LAB | | | | [address], | | | | | | [place] [address] | | | | + + +---- + + + | MCHC | 29.7 (L)Comment: Testing | 32. 0 - 35.5 | EXTERNAL | | | | performed at [facility], [address] | g/d L | LAB | | | | [address], | | | | | | [place] [address] | | | | + + +---- + + + | RDW-CV | 63.9 (H)Comment: Testing | 37 - 53 fl | EXTERNAL | | | | performed at [facility], [address] | | LAB | | | | [address], | | | | | | [place] [address] | | | | + + +---- + + + | Platelet | 436 (H)Comment: Testing | 150 - 400 K/uL | EXTERNAL | | | Count | performed at [facility], [address] | | LAB | | | Plasma | [address] [address], | | | | | | [place] [address] | | | | + + +---- + + + | MPV | 8.1Comment: Testing | fl | EXTERNAL | | | | performed at [facility], [address] | | LAB | | | | [address], | | | | | | [place] [address] | | | | + + +---- + + + | Differentia | AUTOMATEDComment: | | EXTERNAL | | | l Type | Testing performed at | | LAB | | | | [facility], [address] | | | | | | [place] | | | | | | [address] | | | | + + +---- + + + | % Segmented | 78.91Comment: Testing | % | EXTERNAL | | | | performed at [facility], [address] | | LAB | | | Neutrophils | [place], | | | | | | [place] [address] | | | | + + +---- + + + | % | 15.10Comment: Testing | % | EXTERNAL | | | Lymphocytes | performed at [facility], [address] | | LAB | | | | [address], | | | | | | [place] [address] | | | | + + +---- + + + | % Monocytes | 5.31Comment: Testing | % | EXTERNAL | | | | performed at [facility], [address] | | LAB | | | | [place], | | | | | | [place] [address] | | | | + + +---- + + + | % | 0.03Comment: Testing | % | EXTERNAL | | | Eosinophils | performed at [facility], [address] | | LAB | | | | [place], | | | | | | [place] [address] | | | | + + +---- + + + | % Basophils | 0.65Comment: Testing | % | EXTERNAL | | | | performed at [facility], [address] | | LAB | | | | [place], | | | | | | [place] [address] | | | | + + +---- + + + | Absolute | 18.14 (H)Comment: | 1.9 0 - 7.40 | EXTERNAL | | | Segmented | Testing performed at | K/u L | LAB | | | Neutrophils | [facility], [address] | | | | | | [place] | | | | | | [address] | | | | + + +---- + + + | Absolute | 3.47Comment: Testing | 1.0 0 - 3.90 | EXTERNAL | | | Lymphocytes | performed at [facility], [address] | K/u L | LAB | | | | [address], | | | | | | [place] [address] | | | | + + +---- + + + | Absolute | 1.22 (H)Comment: Testing | 0.0 0 - 0.80 | EXTERNAL | | | Monocytes | performed at [facility], [address] | K/u L | LAB | | | | [address] [place], | | | | | | [place] [address] | | | | + + +---- + + + | Absolute | 0.01Comment: Testing | 0.0 0 - 0.50 | EXTERNAL | | | Eosinophils | performed at [facility], [address] | K/u L | LAB | | | | [place], | | | | | | [place] [address] | | | | + + +---- + + + | Absolute | 0.15 (H)Comment: Testing | 0.0 0 - 0.10 | EXTERNAL | | | Basophils | performed at [facility], [facility] | K/u L | LAB | | | | [address] [facility], | | | | | | [place] [address] | | | | + + +---- + + + | RBC | 2+Comment: | | EXTERNAL | | | Morphology | ANISO1+POLY2+HYPO1+MICRO | | LAB | | | | 1+TARGETNORMAL PLT | | | | | | MORPHTesting performed | | | | | | at [facility], [facility] W | | | | | | [facility], | | | | | | [place] [address] | | | | | |1+ | | | | | |MICRO | | | | | |1+ | | | | | |TARGET | | | | | |NORMAL PLT MORPH | | | | | |Testing performed at [facility], [facility] [place] [facility] [place] [address] | | | | | | | [...] EXTERNAL | | | | performed at [facility], [address] | | LAB | | | | [address] [address], | | | | | | [place] [address] | | | | + + + [...] EXTERNAL | | | | performed at [facility], [address] | | LAB | | | | [place], | | | | | | [place] [address] | | | | + + + [...] EXTERNAL | | | | performed at [facility], [address] | mmol/L | LAB | | | | [place], | | | | | | [place] [address] | | | | + + + + + + | K | 3.5Comment: Testing | 3.5 - 4.9 | EXTERNAL | | | | performed at [facility], [address] | mmol/L | LAB | | | | [address], | | | | | | [place] [address] | | | | + + + + + + | Cl | 105Comment: Testing | 99 - 109 mmol/L | EXTERNAL | | | | performed at [facility], [address] | | LAB | | | | [address], | | | | | | [place] [address] | | | | + + + + + + | CO2 | 22 (L)Comment: Testing | 23 - 32 mmol/L | EXTERNAL | | | | performed at [facility], [address] | | LAB | | | | [address], | | | | | | [place] [address] | | | | + + + + + + | Anion Gap | 14Comment: Testing | 5 - 20 mmol/L | EXTERNAL | | | | performed at [facility], [address] | | LAB | | | | [address], | | | | | | [place] [address] | | | | + + + + + + | Glucose, | 92Comment: Testing | 65 - 99 mg/dL | EXTERNAL | | | Fasting | performed at [facility], [address] | | LAB | | | | [address], | | | | | | [place] [address] | | | | + + + + + + | BUN | 36 (H)Comment: Testing | 8 - 25 mg/dL | EXTERNAL | | | | performed at [facility], [address] | | LAB | | | | [address], | | | | | | [place] [address] | | | | + + + + + + | Creatinine | 1.07 (H)Comment: Testing | 0.50 - 1.00 | EXTERNAL | | | | performed at [facility], [address] | mg/dL | LAB | | | | [address], | | | | | | [place] [address] | | | | + + + + + + | BUN/Creatin | 34Comment: Testing | | EXTERNAL | | | ine Ratio | performed at [facility], [address] | | LAB | | | | [place], | | | | | | [place] [address] | | | | + + + + + + | Calcium | 7.0 (L)Comment: Testing | 8.5 - 10.5 | EXTERNAL | | | | performed at [facility], [address] | mg/dL | LAB | | | | [address], | | | | | | [place] [address] | | | | + + + + + + | Protein, | 5.9 (L)Comment: Testing | 6.3 - 8.2 g/dL | EXTERNAL | | | Total | performed at [facility], [address] | | LAB | | | | [address], | | | | | | [place] [address] | | | | + + + + + + | Albumin | 2.9 (L)Comment: Testing | 3.6 - 5.0 g/dL | EXTERNAL | | | | performed at [facility], [address] | | LAB | | | | [address], | | | | | | [place] [address] | | | | + + + + + + | Globulin | 3.0Comment: Testing | 1.3 - 4.9 g/dL | EXTERNAL | | | | performed at [facility], [address] | | LAB | | | | [address], | | | | | | [place] [address] | | | | + + + + + + | A/G Ratio | 1.0Comment: Testing | 1.0 - 2.4 | EXTERNAL | | | | performed at [facility], [address] | | LAB | | | | [address], | | | | | | [place] [address] | | | | + + + + + + | Bilirubin | 0.8Comment: Testing | 0.1 - 1.5 mg/dL | EXTERNAL | | | Total | performed at [facility], [address] | | LAB | | | | [address], | | | | | | [place], [place] [address] | | | | + + + + + + | ALP, | 148 (H)Comment: Testing | 35 - 115 U/L | EXTERNAL | | | External | performed at [facility], [address] | | LAB | | | | [address], | | | | | | [place], [place] [address] | | | | + + + + + + | AST | 34Comment: Testing | 10 - 45 U/L | EXTERNAL | | | | performed at [facility], [address] | | LAB | | | | [address], | | | | | | [place] [address] | | | | + + + + + + | ALT | 39Comment: Testing | 10 - 65 U/L | EXTERNAL | | | | performed at [facility], [address] | | LAB | | | | [address], | | | | | | [place] [address] | | | | + + + [...] | | | | | | at [facility], [address] | | | | | | [place], | | | | | | [place] [address] | | | | + + + [...] EXTERNAL | | | | performed at [facility];[address] | g/dL | LAB | | | | [address];[place], [place] | | | | | | [address] | | | | + + + + + + | Hematocrit, | 32.0 (L)Comment: Testing | 34.0 - 46.0 % | EXTERNAL | | | POC | performed at [facility];[address] | | LAB | | | | [address];[place], [place] | | | | | | [address] | | | | + + + [...] | | | | | [place] [address] | | | | + + + + + + | RBC, UA | 1-5Comment: Testing | 0 - 5 /hpf | EXTERNAL | | | | performed at [facility], [address] | | LAB | | | | [address] [place], | | | | | | [place] [address] | | | | + + + + + + | Epithelial | 1-5Comment: Testing | /lpf | EXTERNAL | | | Cells | performed at [facility], [address] | | LAB | | | | [place], | | | | | | [place] [address] | | | | + + + + + + | Bacteria, | NONE SEENComment: | | EXTERNAL | | | UA | Testing performed at | | LAB | | | | [facility], [address] | | | | | | [place] | | | | | | [address] | | | | + + + [...] | | | | | [place] [address] | | | | + + + + + + | Clarity, | TURBIDComment: Testing | | EXTERNAL | | | Urine | performed at [facility], [address] | | LAB | | | | [address], | | | | | | [place] [address] | | | | + + + + + + | Specific | 1.018Comment: Testing | 1.002 - 1.030 | EXTERNAL | | | [place], | performed at [facility], [address] | | LAB | | | Urine | [address], | | | | | | [place] [address] | | | | + + + + + + | Leukocyte | LARGE (A)Comment: | | EXTERNAL | | | Esterase, | Testing performed at | | LAB | | | Urine | [facility], [address] | | | | | | [place] | | | | | | [address] | | | | + + + + + + | Nitrite, | NEGATIVEComment: Testing | | EXTERNAL | | | Urine | performed at [facility], [address] | | LAB | | | | [address] [place], | | | | | | [place] [address] | | | | + + + + + + | Urobilinoge | 0.2Comment: Testing | mg/dL | EXTERNAL | | | n, Urine | performed at [facility], [address] | | LAB | | | | [place], | | | | | | [place] [address] | | | | + + + + + + | Protein, | 30 (A)Comment: Testing | mg/dL | EXTERNAL | | | Urine | performed at [facility], [address] | | LAB | | | | [address], | | | | | | [place] [address] | | | | + + + + + + | pH, Urine | 6.0Comment: Testing | 5.0 - 8.0 | EXTERNAL | | | | performed at [facility], [address] | | LAB | | | | [place] [address] [place], | | | | | | [place] [address] | | | | + + + + + + | Blood, | MODERATE (A)Comment: | | EXTERNAL | | | Urine | Testing performed at | | LAB | | | | [facility], [address] [facility] | | | | | | [place] | | | | | | [address] | | | | + + + + + + | Ketones | NEGATIVEComment: Testing | mg/dL | EXTERNAL | | | | performed at [facility], [address] | | LAB | | | | [address], | | | | | | [place] [address] | | | | + + + + + + | Bilirubin, | SMALL (A)Comment: | | EXTERNAL | | | Urine | Testing performed at | | LAB | | | | [facility], [address] | | | | | | [place] | | | | | | [address] | | | | + + + + + + | Glucose, | NEGATIVEComment: Testing | mg/dL | EXTERNAL | | | Urine | performed at [facility], [address] | | LAB | | | | [facility] [place], | | | | | | [place] [address] | | | | + + + [...] | | EXTERNAL | | | | [facility];[address] | | LAB | | | | Blvd;[place] [address] | | | | + + + + + + | Antibody | NEGATIVE | | EXTERNAL | | | Screen | | | LAB | | + + + + + + | Antibody | Testing performed at | | EXTERNAL | | | Screen | [facility];[address] | | LAB | | | | [address];[place] [address] | | | | + + + + + + | BB BAND | [id number] | | EXTERNAL | | | | | | LAB | | + + + + + + | BB BAND | Testing performed at | | EXTERNAL | | | | [facility];[address] | | LAB | | | | [address];[place] [address] | | | | + + + [...] | | | | | performed at [facility];[address] | | | | | | [address];[place], [place] | | | | | | [address] | | | | + + + [...] | | | | [facility], [address] [facility] | | | | | | [place] | | | | | | [address] | | | | + + +---- + + + | Non- | 4.26Comment: Testing | 3.7 0 - 5.10 | EXTERNAL | | | Red Blood | performed at [facility], [address] | M/u L | LAB | | | Cells | [address], | | | | | Counted | [place] [address] | | | | + + +---- + + + | Hemoglobin | 10.3 (L)Comment: Testing | 11. 3 - 15.5 | EXTERNAL | | | | performed at [facility], [address] | g/d L | LAB | | | | [place], | | | | | | [place] [address] | | | | + + +---- + + + | Hematocrit, | 33.2 (L)Comment: Testing | 34. 0 - 46.0 % | EXTERNAL | | | POC | performed at [facility], [address] | | LAB | | | | [place], | | | | | | [place] [address] | | | | + + +---- + + + | MCV | 77.9 (L)Comment: Testing | 80. 0 - 100.0 fl | EXTERNAL | | | | performed at [facility], [address] | | LAB | | | | [address] [place], | | | | | | [place] [address] | | | | + + +---- + + + | MCH | 24.1 (L)Comment: Testing | 27. 0 - 34.0 pg | EXTERNAL | | | | performed at [facility], [address] | | LAB | | | | [address] [place], | | | | | | [place] [address] | | | | + + +---- + + + | MCHC | 30.9 (L)Comment: Testing | 32. 0 - 35.5 | EXTERNAL | | | | performed at [facility], [address] | g/d L | LAB | | | | [address] [place], | | | | | | [place] [address] | | | | + + +---- + + + | RDW-CV | 61.3 (H)Comment: Testing | 37 - 53 fl | EXTERNAL | | | | performed at [facility], [address] | | LAB | | | | [address] [place], | | | | | | [place] [address] | | | | + + +---- + + + | Platelet | 445 (H)Comment: Testing | 150 - 400 K/uL | EXTERNAL | | | Count | performed at [facility], [address] | | LAB | | | Plasma | [place], | | | | | | [place] [address] | | | | + + +---- + + + | MPV | 8.6Comment: Testing | fl | EXTERNAL | | | | performed at [facility], [address] | | LAB | | | | [address], | | | | | | [place] [address] | | | | + + +---- + + + | Differentia | MANUALComment: Testing | | EXTERNAL | | | l Type | performed at [facility], [address] | | LAB | | | | [address], | | | | | | [place] [address] | | | | + + +---- + + + | Segmented | 77Comment: Testing | % | EXTERNAL | | | Neutrophils | performed at [facility], [address] | | LAB | | | Manual | [address], | | | | | | [place] [address] | | | | + + +---- + + + | Lymphocytes | 14Comment: Testing | % | EXTERNAL | | | Manual | performed at [facility], [address] | | LAB | | | | [place], | | | | | | [place] [address] | | | | + + +---- + + + | Monocytes | 9Comment: Testing | % | EXTERNAL | | | Manual | performed at [facility], [address] | | LAB | | | | [place], | | | | | | [place] [address] | | | | + + +---- + + + | Absolute | 22.20 (H)Comment: | 1.9 0 - 7.40 | EXTERNAL | | | Neutrophils | Testing performed at | K/u L | LAB | | | | [facility], [address] [facility] | | | | | | [place] | | | | | | [address] | | | | + + +---- + + + | Absolute | 4.04 (H)Comment: Testing | 1.0 0 - 3.90 | EXTERNAL | | | Lymphocytes | performed at [facility], [address] | K/u L | LAB | | | | [address] [place], | | | | | | [place] [address] | | | | + + +---- + + + | Absolute | 2.59 (H)Comment: Testing | 0.0 0 - 0.80 | EXTERNAL | | | Monocytes | performed at [facility], [address] | K/u L | LAB | | | | [address], | | | | | | [place] [address] | | | | + + +---- + + + | RBC | 1+Comment: | | EXTERNAL | | | Morphology | ANISO1+POIK2+HYPO1+MICRO | | LAB | | | | 1+TARGETNORMAL PLT | | | | | | MORPHTesting performed | | | | | | at [facility], [address] | | | | | | [facility], | | | | | | [place] [address] | | | | | |1+ | | | | | |MICRO | | | | | |1+ | | | | | |TARGET | | | | | |NORMAL PLT MORPH | | | | | |Testing performed at [facility], [address] [facility], [place] [address] | | | | | | | [...] | | | | | [place] [address] | | | | + + + + + + | K | 2.9 (L)Comment: Testing | 3.5 - 4.9 | EXTERNAL | | | | performed at [facility], [address] | mmol/L | LAB | | | | [address], | | | | | | [place] [address] | | | | + + + + + + | Cl | 98 (L)Comment: Testing | 99 - 109 mmol/L | EXTERNAL | | | | performed at [facility], [address] | | LAB | | | | [address], | | | | | | [place] [address] | | | | + + + + + + | CO2 | 22 (L)Comment: Testing | 23 - 32 mmol/L | EXTERNAL | | | | performed at [facility], [address] | | LAB | | | | [address], | | | | | | [place] [address] | | | | + + + + + + | Anion Gap | 16Comment: Testing | 5 - 20 mmol/L | EXTERNAL | | | | performed at [facility], [address] | | LAB | | | | [address], | | | | | | [place] [address] | | | | + + + + + + | Glucose, | 89Comment: Testing | 65 - 99 mg/dL | EXTERNAL | | | Fasting | performed at [facility], [address] | | LAB | | | | [address], | | | | | | [place] [address] | | | | + + + + + + | BUN | 39 (H)Comment: Testing | 8 - 25 mg/dL | EXTERNAL | | | | performed at [facility], [address] | | LAB | | | | [address], | | | | | | [place] [address] | | | | + + + + + + | Creatinine | 1.49 (H)Comment: Testing | 0.50 - 1.00 | EXTERNAL | | | | performed at [facility], [address] | mg/dL | LAB | | | | [address], | | | | | | [place] [address] | | | | + + + + + + | BUN/Creatin | 26Comment: Testing | | EXTERNAL | | | ine Ratio | performed at [facility], [address] | | LAB | | | | [address], | | | | | | [place] [address] | | | | + + + + + + | Calcium | 7.5 (L)Comment: Testing | 8.5 - 10.5 | EXTERNAL | | | | performed at [facility], [address] | mg/dL | LAB | | | | [address], | | | | | | [place] [address] | | | | + + + + + + | Protein, | 6.8Comment: Testing | 6.3 - 8.2 g/dL | EXTERNAL | | | Total | performed at [facility], [address] | | LAB | | | | [address], | | | | | | [place] [address] | | | | + + + + + + | Albumin | 3.4 (L)Comment: Testing | 3.6 - 5.0 g/dL | EXTERNAL | | | | performed at [facility], [address] | | LAB | | | | [address] [place], | | | | | | [place] [address] | | | | + + + + + + | Globulin | 3.4Comment: Testing | 1.3 - 4.9 g/dL | EXTERNAL | | | | performed at [facility], [address] | | LAB | | | | [address], | | | | | | [place] [address] | | | | + + + + + + | A/G Ratio | 1.0Comment: Testing | 1.0 - 2.4 | EXTERNAL | | | | performed at [facility], [address] | | LAB | | | | [address], | | | | | | [place] [address] | | | | + + + + + + | Bilirubin | 0.8Comment: Testing | 0.1 - 1.5 mg/dL | EXTERNAL | | | Total | performed at [facility], [address] | | LAB | | | | [address], | | | | | | [place] [address] | | | | + + + + + + | ALP, | 183 (H)Comment: Testing | 35 - 115 U/L | EXTERNAL | | | External | performed at [facility], [address] | | LAB | | | | [address], | | | | | | [place] [address] | | | | + + + + + + | AST | 48 (H)Comment: Testing | 10 - 45 U/L | EXTERNAL | | | | performed at [facility], [address] | | LAB | | | | [address], | | | | | | [place] [address] | | | | + + + + + + | ALT | 56Comment: Testing | 10 - 65 U/L | EXTERNAL | | | | performed at [facility], [address] | | LAB | | | | [address] [facility], | | | | | | [place] [address] | | | | + + + [...] W | | | | | | [facility], | | | | | | [place] [address] | | | | + + + [...]
--- OUTSIDE RECORDS SUMMARY | ~2019-11-03 | XMS | Encounter Summary ---
Demographics + + + | Address | [address] | | | [place] [address] | + + + | Home Phone | | + + + | Preferred Language | Unknown | + + + | Marital Status | | + + + | Oriental Orthodox Affiliation | NRP | + + [...] [place], [place] | | | | | [address] | | + + + + + | Cami Sawyer | ECON | Unknown | | + + + + + Care Team Providers + +------+ + | Care Radio Producer Name | Role | Phone | + [...] Center at [facility] [address] | | - General | | | | [facility] | | | | | | for Health and | | | | | | [facility] [address] | | | | | | [place], [place] | | | | | | [address] | | | | | | [phone] | | | +--------+ + + + [...]
--- OUTSIDE RECORDS SUMMARY | ~2019-11-03 | XMS | Encounter Summary ---
Demographics + + + | Address | [address] | | | [place] [address] | + + + | Home Phone | | + + + | Preferred Language | Unknown | + + + | Marital Status | | + + + | Faith Affiliation | Unknown | + + + [...] Team Providers + +------+ + | Care Organization Development Consultant Name | Role | Phone | + +------+ + PCP | Unavailable | + +------+ + Encounter Details +--------+ + + + + | Date | Type | Department | Care Team | Description | +--------+ + + + + | 10/16/ | Hospital | [facility] | Enrique Bocanegra, | Rectovaginal fistula | | 2016 | Encounter | [facility] | [address] | | | | | [address] | [address] | | | | | [place], [place] | [place] [address] | | | | | [address] | [phone] | | | | | [phone] | | | +--------+ + + + [...] 10/17/153 Date of Service: 10/17/152009 Status: Signed Project Leader: Osvaldo Dial RN (Registered Nurse) Patient and [...] 10/17/151537 Date of Service: 10/17/151537 Status: Signed Project Leader: Enrique Bocanegra MD (Physician) Chief Complaint & [...] anal vag inal fistula are very rare. Cushion Mat Maker needed: No Last colonoscopy: Yes Rectal Bleeding:No [...] Procedure: ESOPHAGOGASTRODUODENOSCOPY; Surgeon: Bony Petty MD; Location: [facility] PROCEDURE; Service: Gastroenterology; Laterality: N/A; Laparotomy N/A 04/23/2014 Procedure: EXPLORATION - LAPAROTOMY; Surgeon: Bogdan Moser DO; Location: 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; S ervice: General; Laterality: N/A; Esophagogastroduodenoscopy Left 08/06/2015 Procedure: ESOPHAGOGASTRODUODENOSCOPY; Surgeon: Sheng Rios MD; Locati on: [facility]; Service: Gastroenterology; Laterality: Left; Social [...] 10/17/151846 Date of Service: 10/17/151825 Status: Signed Project Leader: Enrique Bocanegra MD (Physician) [facility] Service: Colon & Rectal Surgery Operative Note Pre-operative Diagnosis: Crohn's disease, perianal and anovaginal fistula. Post-operative Diagnosis: Same Procedure(s): Exam under anesthesia, seton placement. Rectal mucosa biopsy Surgeon: Enrique Bocanegra MD Cloud Engineer(s): none Anesthesia: General endotrachial anesthesia and Local [...] interpretation and technical preparation was performed by [facility] | | | [facility], [address], | | | [place] [address] (Coordinator Cardiopulmonary Services: Raphael Yee M.D.; IA#: | | | [id number]). Diagnostician: Honey Mcduffie MD Pathologist | | [...]
--- OUTSIDE RECORDS SUMMARY | ~2019-11-03 | XMS | Encounter Summary ---
Demographics + + + | Address | [address] | | | [place] [address] | + + + | Home Phone | | + + + | Preferred Language | Unknown | + + + | Marital Status | | + + + | Moravian Affiliation | NRP | + + + [...] [place], [place] | | | | | [address] | | + + + + + | Cami Sawyer | ECON | Unknown | | + + + + + Care Team Providers + +------+ + | Care Calender Inspector Name | Role | Phone | [...] | | | | | Hospital | [place], [place] | | | | | | [place], [place] | [address] | | | | | | [address] | Phone: | | | | | | Phone: | [phone] | | | | | | [phone] | Fax: | | | | | | Fax: | [phone] | | | | | | [phone] | | +--------+--------+ + + + + [...] | | | | | | | [place], [place] | | | | | | | [address] | | | | | | | Phone: | | | | | | | [phone] | | | | | | | Fax: | | | | | | | [phone] | +--------+--------+ + + + + Diagnostic [...] | | | | EXTREMITY | [place] [address] | Mailcode: | | | | | BILAT | Phone: | [phone] | | | | | | [phone] | Physician's | | | | | | Fax: | Pavilion | | | | | | [phone] | [place], [place] | | | | | | | [address] | | | | | | | Phone: | | | | | | | [phone] | | | | | | | Fax: | | | | | | | [phone] | +--------+--------+ + + + + Diagnostic [...] | | | | | | | [place], [place] | | | | | | | [address] | | | | | | | Phone: | | | | | | | [phone] | | | | | | | Fax: | | | | | | | [phone] | +--------+--------+ + + + + Diagnostic [...] | | | Dariela Saab MD | [facility] [address] | | | | | TRANSTHORACI | | [address] | | | | | C | | [address] | | | | | ECHOCARDIOGR | | [place] | | | | | AM, ADULT | | [facility] | | | | | | | floor | | | | | | | [place], [place] | | | | | | | [address] | | | | | | | Phone: | | | | | | | [phone] | +--------+--------+ + + + + Diagnostic [...] | | | | EXTREMITY | [place] [address] | Mailcode: | | | | | BILATERAL | Phone: | [phone] | | | | | COMPLETE | [phone] | Physician's | | | | | | Fax: | Pavilion | | | | | | [phone] | [place], [place] | | | | | | | [address] | | | | | | | Phone: | | | | | | | [phone] | | | | | | | Fax: | | | | | | | [phone] | +--------+--------+ + + + + Diagnostic [...] | | | | COMPLETE | [place] [address] | Mailcode: | | | | | BILATERAL | Phone: | [id number] | | | | | | [phone] | Physician's | | | | | | Fax: | Pavilion | | | | | | [phone] | [place], [place] | | | | | | | [address] | | | | | | | Phone: | | | | | | | [phone] | | | | | | | Fax: | | | | | | | [phone] | +--------+--------+ + + + + Diagnostic [...] | | | | | | | [place], [place] | | | | | | | [address] | | | | | | | Phone: | | | | | | | [phone] | | | | | | | Fax: | | | | | | | [phone] | +--------+--------+ + + + + Diagnostic [...] | | | | | | | [place], [place] | | | | | | | [address] | | | | | | | Phone: | | | | | | | [phone] | | | | | | | Fax: | | | | | | | [phone] | +--------+--------+ + + + + Reason [...] + + | 03/12/ | Hospital | [facility] [address] | [address], | | | 2011 - | Encounter | [address] | [address] | | | | | [address] [facility] | [facility] [place] | | | 04/01/ | | [place], [place] | [address] | | | 2011 | | [address] | [phone] | | | | | [phone] | | | | | | | Chary Doherty, | | | | | | [address] | | | | | | [address] | | | | | | [place], [place] | | | | | | [address] | | | | | | [phone] | | | | | | | | | | | | Xin Rust | | | | | | MD Nena [address] | | | | | | Rome[address] [facility] | | | | | | [place], [place] | | | | | | [address] | | | | | | [phone] | | | | | | | | | | | | Osbaldo Garcia MD | | | | | | [address] | | | | | | [facility], | | | | | | [place] [address] | | | | | | [phone] | | | | | | | [...] Arterial thrombi: the patient was admitted to [facility] from [place] because she presented wit h nausea, bilious vomiting and was found by CT scan to have bowel wall thickening, 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 At arrival to [facility] it was learned that she did NOT indeed have ischemic colitis. 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 She underwent embolectomy on 03/17, which resulted in rastafarian of flow and no loss of tissue [...] was agreed that the patient needed a retirement treatment and we settled o n remicade. 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 Please call your GI doctor in [facility] to arrange for your second [...] whether or not the INR is truly area representative of anticoagulation. In patients with APLA [...] I NR on Tuesday. KIRIT MD [facility] DEPARTMENT: [id number]- [facility] Faculty PPV Place of Service:- Inpatient Date of Service: 04/01/2012 CSN: [id number] Suggested Modifier: Resident Involved: Yes Suggested CPT: 25255- Dishcarge < 30 min Electronically signed by [...] questions. Debi Oconnor MD GI/Hepatology Fellow Pager: [phone] INTERVAL HISTORY: MRI abdomen shows no abscess; [...] risk of emboli, I called Dr. Rodriges (solutions specialist for her PCP) to coordinate f/u of [...] noted any additions above. KIRITMarisa RUST MD [facility] DEPARTMENT: [id number]- [facility] Faculty PPV Place of Service:- Inpatient Date of Service: 03/31/2012 CSN: [id number] Suggested Modifier: Resident Involved: Yes Suggested CPT: 52835- Subsequent, Detailed/high complex, 35 min Davonte De [...] state: J Gastroenterol. 2004 Jan;39(10):948-54. PubMed PMID: [id number]. Consulted [facility] for further studies on platelet inhibitor and [...] income that does not q ualify for [employer]. F/E/N Thrombosis ppx: Warfarin, Lovenox bridge Glucose: not indicated Diet: regular Code: Do Not Resuscitate/Do Not Intubate This patient was seen with GM3, refer to Attending and Resident notes for assessment and pl an. Nuñez Newport, Sub-Director Clinical Research Pgr: [phone] Ajay De La Rosa MD - 03/30/2012 [...] after d/c until coumading therapeutic with healthcare interpreter through medication assistance program Hypoalbuminemia (03/14/2012) Assessment: [...] [facility] DEPARTMENT: [id number]- [facility] Faculty PPV Place of Service:- Inpatient Date of Service: 03/30/2012 CSN: [id number] Suggested Modifier: GC Resident Involved: Yes Suggested CPT: 45231- Subsequent, Detailed/high complex, 35 min Debi Yepez [...] follow closely Shaun SAEED GI Fellow Pg [phone] signed by Debi Oconnor MD at 03/30/2012 5:32 PM Jacoby Ko MD - 03/30/2012 10:25 AM PSTFormatting of this note might be different from the origi nal. [facility] DEPARTMENT OF SURGERY Daily Progress Note PROGRESS [...] concerns. Jacoby Tovar MD Surgery, R2 Diagnoses: [id number] Crohn disease This assessment and plan was [...] 18 Patient:Mackenzie Hartley, Attending: Xin Rust MD Author:IVVIANA Steele ID: Mackenzie Hartley is a 56 [...] state: J Gastroenterol. 2004 Jan;39(10):948-54. PubMed PMID: [id number]. Consulted Heme for further studies on platelet [...] the [facility]on[facility] Transfer Accept Note Patient: Maceknzie Hartley Attending: Kirit Rust MD Brief [facility] [...] Nathan Weeks MD Internal Medicine PGY1 Pager [phone] ecilia Toney MD - 03/29/2012 6:37 PM [...] team. Debi Oconnor MD GI Fellow Pager [phone] signed by Debi Oconnor MD at 03/29/2012 [...] planning) Debi Oconnor MD Fellow, Gastroenterology pager: [phone] signed by Debi Oconnor MD at 03/29/2012 3:25 PM Sihvani Herrera MD - 03/29/2012 12:52 PM PSTProcedural [...] note for this encounter. OSBALDO GARCIA MD [facility] [address] [place], [place] [id number] Andrew Shah MD - 10:41 AM PST [facility] DEPARTMENT OF SURGERY Daily Progress Note [...] GI Jacoby Tovar MD Surgery, R2 Diagnoses: [id number] Crohn disease This assessment and plan was [...] Osbaldo Mcfarlane MD - 03/29/2012 6:06 AM [facility] Author: OSBALDO GARCIA [...] myself provided conscious sedation. OSBALDO GARCIA MD [facility] [address] [place] [address] I spent 35 min in critical care (not including procedures) [facility] DEPARTMENT: MICU, [facility]- [id number] Place of Service: Date of Service: 03/29/2012 CSN: [id number] Modifiers:GC Resident Involved: yes Suggested CPT: 55605 Critical Care, Initial 30-74 minutes Carlton Godwin [...] 0659 03/29/12 0700 - 03/30/12 0659 Shift 8820-9884 6925-9577 5247-2197 Daily Total 2330-4166 0942-5451 0854-1803 Daily Total I N T A K E P.O. 1750 2525 4275 I.V. 934 2951 805 8741 Shift Total 934 3740 3450 8124 O U T P U T Urine 1075 2950 1875 5900 Urine 1075 2950 1875 5900 Other 575 415 549 8892 Measured Stool Output 350 425 775 Stool/Urine Mix 575 575 Shift Total 1650 3300 2300 7250 NET -882 754 3559 874 Intake/Output Summary (since admission) at 03/12/12 1910 Last data filed at 03/29/12 0547 Gross for the last 17 days Intake 36701 ml Output 77674 ml Net since Admission -19916 ml Physical Exam: General Appearance: middle aged [...] 8 mg/hr Intravenous CONTINUOUS 8 mg/hr (03/29/12 0150) Lines/Tubes: PICC left PIV R Assessment: 56 [...] nexium drip Glycemic control: not needed Carlton Bteancourt DO PGY-1 Internal Medicine Pager [phone] Debi Yepez MD - 03/11 4:31 PM [...] questions. Debi Oconnor MD GI/Hepatology Fellow Pager: [phone] INTERVAL HISTORY: Episode of melena last night [...] patient in the past. OSBALDO GARCIA MD [facility] [id number] [address] I spent 35 min in critical care (not including procedures) [facility] DEPARTMENT: [facility]- [id number] Place of Service: Date of Service: 03/28/2012 CSN: [id number] Modifiers:GC Resident Involved: yes Suggested CPT: 28886 Critical Care, Initial 30-74 minutes Carlton Godwin [...] 0659 03/28/12 07 - 03/29/12 0659 Shift 2988-5536 4531-6606 3698-4090 Daily Total 1571-5329 4083-3518 7523-8219 Daily Total I N T A K E P.O. 240 300 540 I.V. 404 404 934 934 Blood 1300 1300 Shift Total 107 693 7138 2244 934 934 O U T P U T Urine 500 1200 1700 1075 1075 Urine 500 1200 1700 1075 1075 Other 575 575 Stool 1 1 2 Stool/Urine Mix 575 575 Shift Total 500 1200 1700 1650 1650 NET -260 300 504 544 -71 -716 Intake/Output Summary (since admission) at 03/12/12 1910 Last data filed at 03/28/12 1400 Gross for the last 16 days Intake 22892 ml Output 51482 ml Net since Admission -45633 ml Physical Exam: General Appearance: tearful middle [...] Carlton Betancourt DO PGY-1 Internal Medicine Pager [phone] Andrew Shah MD - 6:52 AM PST [...] MD at 03/28/2012 4:27 PM PSTLofbmari , Galya Patiño MD - 03/28/2012 6:52 AM PST [...] Sukumar Zuniga DO Internal Medicine PGY-2 Pg [phone] Davonte De La Rosa MD - 03/27/2012 [...] [facility] DEPARTMENT: [id number]- [facility] Faculty PPV Place of Service:- Inpatient Date of Service: 03/27/2012 CSN: [id number] Suggested Modifier: GC Resident Involved: Yes Suggested CPT: 21978- Subsequent, Detailed/high complex, 35 min Marely Mccann [...] was discussed and formulated with gastroenterology at [facility], Dr. Hennessy. Please call with any questions. Debi Oconnor MD GI/Hepatology Fellow Pager: [phone] INTERVAL HISTORY: Imaging reviewed with radiology; too [...] IMAGING Dung Victor - 2 11:30 AM [facility] NOTE: Visited with Patient. 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 Account Executive Sales Representative team will follow as needed. Chaplain Dung Riley M.Div., [facility] [phone] Pager #[phone]; #[phone] Xin De La Rosa MD - 7:31 [...] J Gastroenterol. 2004 Jan;39(10):948-54. PubMed PMID: [id number]. Consulted Heme for further studies on platelet [...] an. ---- Joaquin Rivera, MS4 Pager # [phone] signed by Xin Rust MD at 03/27/2012 [...] noted any additions above. 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 Raphael Norman MD Internal Medicine, PGY-2 604[address] [facility] - 03/25/2012 8:58 PM [facility] Internal Medicine Attending Interval note Hospital day: [...] - not larger Resident spoke with resident surgeon who spoke with staff - they did [...] taking more PO if still low ask digital account manager to see Hypophosphatemia (03/14/2012) Assessment: rechecked and [...] have noted any additions above. KIRIT MD [facility] DE[facility]: [id number]- [facility] Faculty PPV Place of Service:- Inpatient Date of Service: 03/25/2012 CSN: [id number] Suggested Modifier: GC Resident Involved: Yes Suggested CPT: 07447- Subsequent, Detailed/high complex, 35 min oaquin Rivera [...] J Gastroenterol. 2004 Jan;39(10):948- 54. PubMed PMID: [id number]. Consulted Heme for further studies on platelet [...] income that does not qualif y for [employer] F/E/N Thrombosis ppx: Warfarin Glucose: not indicated Diet: regular Code: Do Not Resuscitate/Do Not Intubate This patient was seen with GM3, refer to Attending and Resident notes for assessment and pl an. ---- Joaquin Rivera, MS4 Pager # [phone] Ajay De La Rosa MD - 03/24/2012 [...] MD [facility] DEPARTMENT: [id number]- [facility] Faculty PPV Place of Service:- Inpatient Date of Service: 03/24/2012 [facility]: [id number] Suggested Modifier: Resident Involved: Yes Suggested CPT: 16257- Subsequent, Detailed/high complex, 35 min Davonte De [...] J Gastroenterol. 2004 Jan;39(10):948- 54. PubMed PMID: [id number]. Consulted Heme for further studies on platelet [...] pl an. ---- VIVIANA Quiroz Pager # [phone] Ajay De La Rosa MD - 03/23/2012 10:44 PM [facility] Internal Medicine Attending Interval note Hospital day: [...] noted any additions above. KIRITMarisa RUST MD [facility] DEPARTMENT: [id number]- [facility] Faculty PPV Place of Service:- Inpatient Date of Service: 03/23/2012 CSN: [id number] Suggested Modifier: AKHIL Resident Involved: Yes Suggested CPT: 08084- Subsequent, Detailed/high complex, 35 min Davonte De [...] to be done today JERI DIAZ MD [address] [facility] [address] [place] [address] Xin De La Rosa MD - 03/23/2012 [...] state: J Gastroenterol. 2004 Jan;39(10):948-54. PubMed PMID: [id number]. Consulted Heme for further studies on platelet [...] has income that does not qualify for [employer] F/E/N Thrombosis ppx: Warfarin Glucose: not indicated Diet: regular Code: Do Not Resuscitate/Do Not Intubate This patient was seen with GM3, refer to Attending and Resident notes for assessment and pl an. ---- Joaquin Rivera, MS4 Pager # [phone] Ajay De La Rosa MD - 03/22/2012 10:50 PM [facility] Internal Medicine Attending Interval note Hospital day: [...] MD [facility] DEPARTMENT: [id number]- [facility] Faculty PPV Place of Service:- Inpatient Date of Service: 03/22/2012 CSN: [id number] Suggested Modifier: Resident Involved: Yes Suggested CPT: 14795- Subsequent, Detailed/high complex, 35 min ox, Jeri [...] carotid duplex ordered today JERI DIAZ MD [facility] [address] [place] [address] Xin De La Rosa MD - 03/22/2012 [...] 03/20/12 202 1 NA -- 141 @ [facility] -- 142 139 K -- 3.8 Given [...] PTT in mixing 1:1 Neg cardiolipin, neg msmn-K-xvnrwkkbgtfw Legionella Agg Urine pending Cultures: BLOOD CULTURE [...] barber: J Gastroenterol. 2004 Jan;39(10):948-54. PubMed PMID: [id number]. - Consult Heme for further studies on [...] an. ---- Joaquin Rivera, 4 Pager # [phone] Ajay De La Rosa MD - 03/21/2012 [...] 142/76 | Pulse 106[sinus tach per television engineer[ | Temp 37.7 C (99.9 F) [...] pharmD. [facility] DEPARTMENT: [id number]- [facility] Faculty PPV Place of Service:- Inpatient Date of Service: 03/21/2012 CSN: [id number] Suggested Modifier: GC Resident Involved: Yes Suggested CPT: 47831- Subsequent, Detailed/high complex, 35 min Jennifer Tolentino [facility] - 03/21/2012 12:38 PM PST [...] y.o. Female with multiple complex medical problems; [facility] Vascular Surge ry consulted due to [...] as new baseline Ok to discharge per [facility] Vascular Surgeons once ambulating and medical issues are stable. Will continue to follow while in patient. [facility] Vascular Surgery Clinic, [facility] [address], phone number [phone] Please schedule followup appointment within 2-3 weeks of surgery for wound check. Dr. Sukumar Salgado, [facility] Vascular Surgery Attending. MERT OLIVA [facility] VASCULAR SURGERY [address] [place] [address] ham, Moses Asher MD - 03/21/2012 6:55 [...] w ill need to establish care with senior treasury consultant so that further treatment options can [...] assessment and plan. Moses Anthony MD Neurology Director Clinical Research Pager [phone] oaquin Rivera - 02/2012 6:55 AM PST [...] an. ---- Joaquin Rivera, MS4 Pager # [phone] Xin De La Rosa M D - 03/20/2012 11:09 PM [facility] Internal Medicine Attending Interval note Hospital day: [...] [facility] DEPARTMENT: [phone]- [facility] Faculty PPV Place of Service:- Inpatient Date of Service: 03/20/2012 CSN: [id number] Suggested Modifier: Resident Involved: Yes Suggested CPT: 37537- Subsequent, Detailed/high complex, 35 min Jennifer Tolentino [...] -- -- -- -- Assessment and Plan: Mackenize Hartley is a 56 y.o. Female with multiple complex medical problems; [facility] Vascular Surge ry consulted due to [...] chair as tolerated, RLE WBAT -Please obtain [facility] Arterial duplex ultrasound/DELORIS of both legs prior to discharge as n ew baselineObtain ABIs with waveforms To establish new blood-flow baseline Ok to discharge per [facility] Vascular Surgeons once ambulating and medical issues are stable. Will continue to follow while in patient. [facility] Vascular Surgery Clinic, [address] [address], phone number [phone] Please schedule followup appointment within 2-3 weeks of surgery for wound check. Dr. Sukumar Salgado, [facility] Vascular Surgery Attending. MERT OLIVA [facility] VASCULAR SURGERY [address] [place] [address] icprince, Raphael Saab MD - 03/20/2012 7:58 [...] plan. Raphael Norman MD Internal Medicine, PGY-2 60375 oaquin Rivera - 7:58 AM PST Medicine [...] an. ---- Joaquin Rivera, MS4 Pager # [phone] Juma Pimentel MD - 03/19/2012 3:35 PM [...] record is Dr. Salgado. JUMA CARRINGTON MD [facility] [address] [place] [address] Chary Moore M D - 03/19/2012 9:14 [...] note from 03/14 for details. Therefore the guqk-lmmh-bkuta plan givens s been to allow her [...] plan. Lovenox bridge to be covered by [facility]. 9) Occlusive thrombus 10) Hypoalbuminemia 11) Hypophosphatemia 12) TIA (transient ischemic attack) - with PFO 13) PFO (patent foramen ovale) - plan is for lifelong coumadin. No additional benefit from device closure per CLOSURE I trial. Chary Doherty MD Chief Resident, Internal Medicine Pager: [phone] [facility] DEPARTMENT: Hosp- [id number] Place of Service: Date of Service: 03/19/2012 CSN: [id number] Modifiers:GC Resident Involved: Yes Suggested CPT: 23835 Subsequent Visit Detailed/High complexity 35 min I [...] will need to establish c are with senior treasury consultant so that further treatment options can [...] assessment and plan. Moses Anthony MD Neurology Director Clinical Research Pager [phone] Jose Antonio Baker MD - 03/18/2012 1:01 [...] mg, 50 mg, Intravenous, Q4H PRN, Gloria Anthnoy MD , 50 mg at 03/18/12 1235 [...] outpt GI, plans to establish care in [place], perhaps Dr. Byrd. Transitioning to PO meds, [...] Doherty MD Chief Resident, Internal Medicine Pager: [phone] [facility] DEPARTMENT: Hosp- [id number] Place of Service: Date of Service: 03/18/2012 CSN: [id number] Modifiers: Resident Involved: Yes Suggested CPT: 88815 Subsequent Visit Exp Prob Foc/Mod Complexity 25 [...] Date 03/18/12 07 - 03/19/12 0659 Shift 7564-7769 4301-6142 8284-4710 24 Hour Total I N T A K E P.O. 620 620 I.V. 20 20 40 Shift Total 640 20 660 O U T P U T Urine 675 100 775 Other 400 400 Shift Total 155 318 9752 Weight (kg) 74.1 74.1 74.1 74.1 General: [...] refusing). Will need to establish care with senior treasury consultant so that further treatment options can [...] in MS4 note. Moses Anthony MD Neurology Director Clinical Research Pager [phone] signed by Moses Asher MD at 03/18/2012 9:50 PM [facility] - 03/18/2012 9:18 AM PST Medicine [...] an. ---- Joaquin Rivera, MS4 Pager # [phone] Chary Moore MD - 03/17/2012 8:39 PM [...] refusing). Will need to establish care with senior treasury consultant so this can be discussed as [...] Doherty MD Chief Resident, Internal Medicine Pager: [phone] [facility] DEPARTMENT: Hosp- [id number] Place of Service: IP - Date of Service: 03/17/2012 CSN: [id number] Modifiers:GC Resident Involved: Yes Suggested CPT: 27245 Subsequent Visit Detailed/High complexity 35 min I [...] at end of case. MIRELA SALGADO MD [facility] [address] [address] [place] [address] ham, Gloria Lawson MD - 1 05/18/2011 [...] until she's therapeutic with her coumadin and [facility] has agreed to provide discounted [...] y Gloria Anthony MD Neurology PGY1 Pager: [phone] Joaquin Hui - 10/2011 7:19 AM PST [...] an. ---- Joaquin Rivera, MS4 Pager # [phone] Chary Moore MD - 03/16/2012 12:56 PM [...] Doherty MD Chief Resident, Internal Medicine Pager: [phone] [facility] DEPARTMENT: Hosp- [id number] Place of Service: - Date of Service: 03/16/2012 CSN: [id number] Modifiers: Resident Involved: Yes Suggested CPT: 94381 Subsequent Visit Exp Prob Foc/Mod Complexity 25 min and 09105 Subseque nt Visit Detailed/High complexity 35 min [...] DNR/DNI Gloria Anthony MD Neurology PGY-1 Pager [phone] The patient was seen and discussed with [...] Doherty MD Chief Resident, Internal Medicine Pager: [phone] [facility] DEPARTMENT: Hosp- [id number] Place of Service: - Date of Service: 03/15/2012 CSN: [id number] Modifiers:GC Resident Involved: Yes Suggested CPT: 24407 Subsequent Visit Detailed/High complexity 35 min Dariela [...] plan. Dariela Santoyo MD Internal Medicine PGY-3 [phone] Daryl Singleton MD - 08/2011 7:18 PM PSTHematology Attending Consult Note: I saw and examined Ms. Hartley with the Hematology Fellow, Dr. Anthony Camejo and [facility] [place] the 5A Medicine unit. I participated in the gunter components of today's [facility] visit including review of the history, [...] Oncology [facility] DEPARTMENT: [id number] [facility] Place of Service: - Inpatient Date of Service: 03/15/2012 Modifiers: GC - Resident Involved Suggested CPT: 10147 - Subsequent, Detailed/High complex 35 min rammer, [...] anticoagulation clinic f/u closely; our clinic at [facility] cannot provide any suppli es -anticoagulation [...] as above. MD Hematology/Oncology Fellow Pager # [phone] signed by Daryl Arteaga MD at 03/15/2012 [...] with any questions. Bigg Robles, R1 Pager: [phone] INTERVAL HISTORY: - NAEO - VSS, AF [...] wishes to pro ceed. Mirela Samano M.D. [facility] Vascular Surgery [address] [place] [address], [address] [address] Email: [email or web address] Sandoval Ko MD - 03/15/2012 9:30 AM [...] off to day. Jacoby Tovar MD Surgery [id number] signed by Sandoval Tovar MD at 03/15/2012 [...] monitor Gloria Anthony MD Neurology PGY1 Pager [phone] Daryl Singleton MD - 07/2011 4:57 PM PSTHematology Attending Consult Note: I saw and examined Ms. Hartley with the Hematology Fellow, Dr. Anthony Camejo in the [address] [place] [address] unit. I participated in the gunter components [...] Oncology [facility] DEPARTMENT: [id number]- [facility] Place of Service: - Inpatient Date of Service: 03/14/2012 Modifiers: GC - Resident Involved Suggested CPT: 03551 - Subsequent, Detailed/High complex 35 min Anthony [...] as above. MD Hematology/Oncology Fellow Pager # [phone] signed by Daryl Arteaga MD at 03/14/2012 [...] really for treatment Recommendations communicated with [employer] actuarial internship. We will continue to follow. This plan was discussed and formulated with gastroenterology at [facility], Dr. Casiano. Please call with any questions. Bigg Robles, R1 Pager: [phone] Attending Attestation: I personally interviewed the patient, [...] She may follow-up wit h her local senior treasury consultant or may follow up with me at [facility] if she wishes to consider di fferent evaluation or treatment. 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 I agree with the findings and the plan of care as jannie hair in the resident s note. Left foot warm and well perfused. Patient pain-free. Will repe at CTA to see if there has been any thrombus progression. No urgent need for surgery on left leg at this point. Mirela Samano M.D. [facility] Vascular Surgery [address] [place] [address], [address] [address] Email: [email or web address] Irene Aguilera MD - 03/14/2012 3:52 AM [...] at OSH. 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 She also had leukocytosis to 45 with a left shift, anemia, and thrombocytosis (platelets to 759). Her abdominal exam was not acute and she remained hemodynamically stable. Transferre d to [facility] for possible thrombectomy, initiated heparin therapy, [...] were obscured by overlying bowel gas. The wet-mq-akvahi left external iliac arteries appear patent with [...] transient arterial occlusion. Reported CT findings at [facility] are also concerning for diffuse intra-abdominal arterial [...] Becca Moncada MD General Surgery, R2 Pager: [phone] Vascular Staff I saw and evaluated the [...] at a later time. Mirela Samano M.D. [facility] Vascular Surgery [address] [place] [address], [address] [address] Email: [email or web address] Richie Goodman MD - 06/2011 11:15 AM PSTI was present and rounded with the MULTICULTURAL MANAGER today. I interviewed and examined the patient. I reviewed the history, as documented today. I agree with the MULTICULTURAL MANAGER's assessmen t and plan. Pt is stable [...] 75 Morphine IV PRN zofran PRN Labs: [facility] reviewed Significant Results K 3.3 Mg [...] visceral and aortic thrombus transfer red from [place] last night with concerns for ischemic bowel. [...] and celiac arteries who was transferred to [facility] for management o f vascular disease and possible bowel ischemia. No evidence of bowel ischemia, bowel thicken ing likely Crohn's flare. 1. Crohn's flare: GI consult. Consider transfer to medicine for crohn's management with [facility] following 2. Multivessel occlusions/thrombii: vascular surgery [...] Her abdominal exam does not reveal peritonitis. [facility] ular surgery recommended a heparin drip given her subtherapeutic INR. Hematology will be con sulted for her leukocytosis and declining platelet count in the setting of heparin therapy. Gastroenterology is making recommendations regarding acute management of her Crohn's disease . She will no longer require ICU care and she will transfer to the general medicine service. Jf Wiseman MD FACS summer school coordinator Division of Trauma, Critical Care, and Acute Care Surgery [id number] documented in this e ncounter Plan of [...] [facility] | [address] | [place] [address] | | | SERVICES, CORE | PARK [...] [facility] | [address] | [place] [address] | | | SERVICES, CORE | PARK [...] | + + + + + | [facility] | [address] | [place] [address] | | | SERVICES, CORE | PARK [...] | + + + + + | [facility] | [address] | [place] [address] | | | SERVICES, CORE | BERTRAM [...] [facility] | [address] | [place] [address] | | | SERVICES, CORE | BERTRAM [...] | | + +---------+ + + | [facility] DEPARTMENT OF | | | | [...] | | + +---------+ + + | [facility] DEPARTMENT OF | | | | [...] | + + + + + | [facility] | [address] | [place] [address] | | | SERVICES, CORE | BERTRAM [...] [facility] | [address] | [place] [address] | | | SERVICES, CORE | PARK [...] [facility] | [address] | [place] [address] | | | SERVICES, CORE | PARK [...] [facility] | [address] | [place] [address] | | | SERVICES, CORE | PARK [...] | + + + + + | [facility] | [address] | [place] [address] | | | SERVICES, CORE | BERTRAM [...] | + + + + + | [facility] | [address] | [place] [address] | | | SERVICES, CORE | BERTRAM [...] [facility] | [address] | [place] [address] | | | SERVICES, CORE | PARK [...] 44.6 (H) | 26.0 - 36.0 | [facility] | | | | | seconds | [...] | + + + + + | [facility] | [address] | [place] [address] | | | SERVICES, JANELL | BERTRAM [...] + | [facility] | [address] | [place] [address] | | | [place] | | | [...] + | [facility] | [address] | [place] [address] | | | [place] | | | | + + + [...] + | [facility] | [address] | [place] [address] | | | [place] | | | [...] [facility] | [address] | [place] [address] | | | SERVICES, CORE | PARK [...] | + + + + + | [facility] | [address] | [place] [address] | | | SERVICES, CORE | PARK [...] [facility] | [address] | [place] [address] | | | SERVICES, CORE | PARK [...] [facility] | [address] | [place] [address] | | | JANELL SHARP | BERTRAM [...] | + + + + + | [facility] | [address] | [place] [address] | | | PATHOLOGY | [address] [...] [facility] | [address] | [place] [address] | | | SERVICES, CORE | PARK [...] [facility] | [address] | [place] [address] | | | JANELL SHARP | PARK [...] | | | | | | / ILZZ DEE | | | | | | [...] - [facility] | [address] | [place], [place] | | | [facility] | [address] | [address] | | | TESTS | | | [...] | + + + + + | [facility] | [address] | [place] [address] | | | SERVICES, CORE | PARK [...] | + + + + + | [facility] | [address] | [place] [address] | | | SERVICES, CORE | BERTRAM [...] [facility] | [address] | [place] [address] | | | SERVICES, JANELL | BERTRAM [...] - [facility] | [address] | [place], [place] | | | [facility] | [facility] | [address] | | | TESTS | | | [...] [facility] | [address] | [place] [address] | | | SERVICES, CORE | PARK [...] [facility] | [address] | [place] [address] | | | SERVICES, CORE | PARK [...] | + + + + + | [facility] | [address] | [place] [address] | | | SERVICES, CORE | BERTRAM [...] | + + + + + | [facility] | [address] | [place] [address] | | | SERVICES, JANELL | [address] | | | + + + + + X-RAY PORTABLE CHEST 1 VIEW (03/28/2012 6:28 AM PST) + + + + + + | Component | Value | Ref Range | Performed | Pathologist | | | | | At | Signature | + + + + + + | X-RAY | STUDY: NV CHEST 1 VIEW | | | | [...] + + + + | PRODUCT | [id number] | | [facility] | | | UNIT [...] + + + + | BLOOD | [id number] | | [facility] | | | PRODUCT [...] DEPARTMENT OF | [address] | [place] [address] | | | PATHOLOGY | [address] [...] + + + + | PRODUCT | [id number] | | [facility] | | | UNIT [...] + + + + | BLOOD | [id number] | | [facility] | | | PRODUCT [...] | + + + + + | [facility] | [address] | [place] [address] | | | PATHOLOGY | [address] [...] [facility] | [address] | [place], [place] | | | KAILEY MOORE | [facility] | [address] | | | TESTS | | | [...] | + + + + + | [facility] | [address] | [place] [address] | | | SERVICES, CORE | BERTRAM [...] view image for the detailed interpretation from Dec[employer]iv results. | CARDIOLOGY | + + + + + + + + | Performing | Address | City/State/Zipcode | Phone Number | | Organization | | | | + + + + + | [facility] | [address] | [place], [place] | | | CARDIOLOGY | [address] | [address] | | + + + + + [...] [facility] | [address] | [place] [address] | | | SERVICES, CORE | PARK [...] + + + + | PRODUCT | [id number] | | [facility] | | | UNIT [...] + + + + | BLOOD | 84050 | | [facility] | | | PRODUCT [...] | + + + + + | [facility] DE[facility] | [address] | [place] [address] | | | PATHOLOGY | [address] [...] + + + + | PRODUCT | [id number] | | [facility] | | | UNIT [...] + + + + | BLOOD | 25331 | | [facility] | | | PRODUCT [...] DEPARTMENT OF | [address] | [place], [place] [address] | | | PATHOLOGY | [address] [...] [facility] | [address] | [place] [address] | | | SERVICES, CORE | PARK [...] | + + + + + | [facility] | [address] | [place] [address] | | | SERVICES, CORE | BERTRAM [...] | + + + + + | [facility] | [address] | [place] [address] | | | SERVICES, CORE | BERTRAM [...] [facility] | [address] | [place] [address] | | | SERVICES, CORE | PARK [...] [facility] | [address] | [place] [address] | | | SERVICES, | [address] [...] | + + + + + | [facility] | [address] | [place] [address] | | | SERVICES, | [address] [...] + + + + | PRODUCT | [id number] | | [facility] | | | UNIT [...] + + + + | BLOOD | 62381 | | [facility] | | | PRODUCT [...] | + + + + + | [facility] DEPARTMENT OF | [address] | [place] [address] | | | PATHOLOGY | [address] [...] + + + + | PRODUCT | [id number] | | [facility] | | | UNIT [...] + + + + | BLOOD | 76218 | | [facility] | | | PRODUCT [...] DEPARTMENT OF | [address] | [place] [address] | | | PATHOLOGY | [address] [...] [facility] | [address] | [place] [address] | | | SERVICES, CORE | PARK [...] | + + + + + | [facility] | [address] | [place] [address] | | | SERVICES, CORE | [address] | | | + + + + + MAGNESIUM, PLASMA (03/27/2012 5:27 AM PST) + +---------+ + + + | Component | Value | Ref Range | Performed | Pathologist | | | | | At | Signature | + +---------+ + + + | MAGNESIUM,P | 1.7 (L) | 1.8 - 2.5 mg/dL | [facility] | | | LASMA | | | [...] | + + + + + | [facility] | [address] | [place] [address] | | | SERVICES, CORE | PARK [...] | + + + + + | [facility] | [address] | [place] [address] | | | SERVICES, CORE | PARK [...] [facility] | [address] | [place] [address] | | | SERVICES, CORE | PARK [...] [facility] | [address] | [place] [address] | | | SERVICES, CORE | PARK [...] | + + + + + | [facility] | [address] | [place] [address] | | | SERVICES, CORE | PARK [...] LABORATORY | [address] | [place] [address] | | | SERVICES, CORE | PARK [...] | + + + + + | [facility] | [address] | [place] [address] | | | SERVICES, JANELL | [address] [...] [facility] | [address] | [place] [address] | | | SERVICES, CORE | PARK [...] | + + + + + | [facility] | [address] | [place] [address] | | | SERVICES, CORE | [address] | | | + + + + + MAGNESIUM, PLASMA (03/25/2012 3:13 AM PST) + +---------+ + + + | Component | Value | Ref Range | Performed | Pathologist | | | | | At | Signature | + +---------+ + + + | MAGNESIUM,P | 1.7 (L) | 1.8 - 2.5 mg/dL | [facility] | | | LASMA | | [...] [facility] | [address] | [place] [address] | | | SERVICES, CORE | PARK [...] [facility] | [address] | [place] [address] | | | SERVICES, CORE | PARK [...] [facility] | [address] | [place] [address] | | | SERVICES, CORE | PARK [...] | + + + + + | [facility] | [address] | [place] [address] | | | SERVICES, JANELL | [address] [...] oral, | | | | | | [id number] hrs | | | | | | [...] | | + +---------+ + + | [facility] DEPARTMENT OF | | | | [...] LABORATORY | [address] | [place] [address] | | | SERVICES, CORE | PARK [...] | + + + + + | [facility] | [address] | [place] [address] | | | SERVICES, CORE | PARK [...] | + + + + + | [facility] | [address] | [place] [address] | | | SERVICES, CORE | BERTRAM [...] | + + + + + | [facility] | [address] | [place] [address] | | | SERVICES, CORE | BERTR[address] [...] [facility] | [address] | [place] [address] | | | SERVICES, JANELL | [address] [...] | | | | Final | | [place] | | | | CULTURE RESULT:< 10,000 [...] + | [facility] | [address] | [place], [place] [address] | | | [facility] | | | | + + [...] [facility] | [address] | [place] [address] | | | SERVICES, CORE | PARK [...] [facility] | [address] | [place] [address] | | | SERVICES, CORE | PARK [...] [facility] | [address] | [place] [address] | | | JANELL SHARP | BERTRAM [...] | + + + + + | [facility] | [address] | [place] [address] | | | SERVICES, CORE | BERTRAM [...] + + + | Please click | [facility] | | on view image for the detailed interpretation from [employer] results. | CARDIOLOGY | + + + + + + + + | Performing | Address | City/State/Zipcode | Phone Number | | Organization | | | | + + + + + | [facility] | [address] | [place], [place] | | | CARDIOLOGY | [address] | [address] | | + + + + + [...] | + + + + + | [facility] | [address] | [place] [address] | | | SERVICES, CORE | BERTRAM [...] [facility] | [address] | [place] [address] | | | JANELL SHARP | [address] [...] | + + + + + | [facility] | [address] | [place] [address] | | | JANELL SHARP | [address] [...] | + + + + + | [facility] | [address] | [place] [address] | | | SERVICES, CORE | BERTRAM [...] [facility] | | | | | | [facility],[address] [place] [address] | | | | | | [place] [address] | | | | | | [phone]. | | | | | | keith, [...] [facility] | [address] | [place], [place] | | | [facility] | | [address] | | + + + + + [...] | + + + + + | [facility] | [address] | [place] [address] | | | SERVICES, CORE | BERTRAM [...] | + + + + + | [facility] | [address] | [place] [address] | | | SERVICES, CORE | [address] | | | + + + + + CULTURE, BLOOD BACTI & YEAST [facility] (03/22/2012 7:08 PM PST) + + [...] | + + + + + | [facility] | [address] | [place] [address] | | | SERVICES, CORE | BERTRAM [...] | | | | | XIN GARZON ([id number]) | | | | | | on 03/22/2012 4:25:06 PM | | | | + + + + + + + + | Specimen | + + | | + + + + + | Narrative | Performed At | + + + | Please click | [facility] | | on view image for the detailed interpretation from Decisiv results. | CARDIOLOGY | + + + + + + + + | Performing | Address | City/State/Zipcode | Phone Number | | Organization | | | | + + + + + | [facility] | [address] | [place], [place] | | | CARDIOLOGY | [address] | [address] | | + + + + + [...] [facility] | [address] | [place], [place] | | | [facility] | [facility] | [address] | | | TESTS | | | [...] [facility] | [address] | [place], [place] | | | [facility] | [facility] | [address] | | | TESTS | | | [...] | + + + + + | [facility] | [address] | [place] [address] | | | SERVICES, CORE | PARK [...] | + + + + + | [facility] | [address] | [place] [address] | | | SERVICES, JANELL | [address] [...] | + + + + + | [facility] | [address] | [place] [address] | | | SERVICES, JANELL | [address] [...] [facility] | [address] | [place] [address] | | | SERVICES, CORE | PARK [...] | + + + + + | [facility] | [address] | [place] [address] | | | SERVICES, CORE | BERTRAM [...] [facility] | [address] | [place], [place] | | | [facility] | [address] | [address] | | | TESTS | | | [...] | + + + + + | [facility] | [address] | [place] [address] | | | SERVICES, CORE | PARK [...] [facility] | [address] | [place], [place] | | | [facility] | [address] | [address] | | | TESTS | | | [...] view image for the detailed interpretation from Decisiv results. | CARDIOLOGY | + + + + + + + + | Performing | Address | City/State/Zipcode | Phone Number | | Organization | | | | + + + + + | [facility] | [address] | [place], [place] | | | CARDIOLOGY | [address] | [address] | | + + + + + [...] + | [facility] | [address] | [place], [place] | | | [facility] | [address] | [address] | | | TESTS | | | [...] [facility] | [address] | [place] [address] | | | JANELL SHARP | BERTRAM [...] [facility] | [address] | [place] [address] | | | SERVICES, CORE | [address] [...] | + + + + + | [facility] | [address] | [place] [address] | | | ARON, JANELL | [address] [...] | + + + + + | [facility] | [address] | [place] [address] | | | SERVICES, JANELL | [address] [...] | + + + + + | [facility] | [address] | [place] [address] | | | SERVICES, CORE | PARK [...] GARCIA | | | | | | ([id number]) on 03/22/2012 | | | | | | 12:47:28 PM | | | | + + + + + + + + | Specimen | + + | | + + + + + | Narrative | Performed At | + + + | Please click | [facility] | | on view image for the detailed interpretation from Decis[employer] results. | CARDIOLOGY | + + + + + + + + | Performing | Address | City/State/Zipcode | Phone Number | | Organization | | | | + + + + + | [facility] | [address] | [place], [place] | | | CARDIOLOGY | [address] | [address] | | + + + + + [...] | | + +---------+ + + | [facility] DEPARTMENT OF | | | | [...] [facility] | [address] | [place] [address] | | | SERVICES, CORE | [address]TR[address] [...] | + + + + + | [facility] | [address] | [place] [address] | | | SERVICES, CORE | [address] | | | + [...] [facility] | [address] | [place], [place] | | | KAILEY MOORE | [address] | [address] | | | TESTS | | | [...] view image for the detailed interpretation from Decisiv results. | CARDIOLOGY | + + + + + + + + | Performing | Address | City/State/Zipcode | Phone Number | | Organization | | | | + + + + + | [facility] | [address] | [place], [place] | | | CARDIOLOGY | [address] | [address] | | + + + + + [...] [facility] | [address] | [place], [place] | | | [facility] | [address] | [address] | | | TESTS | | | [...] (H) | 60 - 99 mg/dL | [facility] - | | | GLUCOSE, | [...] [facility] | [address] | [place], [place] | | | [facility] | [address] | [address] | | | TESTS | | | | + + + + + X-RAY PORTABLE CHEST 1 VIEW (03/20/2012 10:13 AM PST) + + + + + + | Component | Value | Ref Range | Performed | Pathologist | | | | | At | Signature | + + + + + + | X-RAY | STUDY: NV CHEST 1 VIEW | | | | [...] | | + +---------+ + + | [facility] DEPARTMENT OF | | | | [...] [facility] | [address] | [place] [address] | | | ARON, CORE | PARK [...] | + + + + + | [facility] | [address] | [place] [address] | | | SERVICES, CORE | PARK [...] [facility] | [address] | [place] [address] | | | SERVICES, CORE | PARK [...] | + + + + + | [facility] | [address] | [place] [address] | | | SERVICES, CORE | BERTRAM [...] [facility] | [address] | [place], [place] | | | [facility] | [facility] | [address] | | | TESTS | | | [...] - [facility] | [address] | [place] | | | [facility] | [address] | [address] | | | TESTS | | | [...] | + + + + + | [facility] | [address] | [place] [address] | | | SERVICES, CORE | BERTRAM [...] | + + + + + | [facility] | [address] | [place] [address] | | | SERVICES, CORE | BERTRAM [...] [facility] | [address] | [place], [place] | | | [facility] | [address] | [address] | | | TESTS | | | [...] view image for the detailed interpretation from [employer] results. | CARDIOLOGY | + + + + + + + + | Performing | Address | City/State/Zipcode | Phone Number | | Organization | | | | + + + + + | [facility] | [address] | [place], [place] | | | CARDIOLOGY | [address] | [address] | | + + + + + [...] [facility] | [address] | [place], [place] | | | [facility] | [address] | [address] | | | TESTS | | | [...] [facility] | [address] | [place], [place] | | | [facility] | [address] | [address] | | | TESTS | | | [...] | + + + + + | [facility] | [address] | [place] [address] | | | JANELL SHARP | BERTRAM [...] | + + + + + | [facility] | [address] | [place] [address] | | | JANELL SHARP | BERTRAM [...] | + + + + + | [facility] | [address] | [place] [address] | | | SERVICES, CORE | PARK [...] + + + | [facility] | [address] | [place] [address] | | | SERVICES, JANELL | BERTRAM [...] | | | | Final | | [place] | | | | CULTURE RESULT:No growth [...] + | [facility] - | [address] | [place] [address] | | | [place] | | | [...] [facility] | [address] | [place] [address] | | | SERVICES, CORE | PARK [...] | + + + + + | [facility] | [address] | [place] [address] | | | SERVICES, CORE | BERTRAM [...] | + + + + + | [facility] | [address] | [place] [address] | | | SERVICES, CORE | PARK [...] | + + + + + | [facility] | [address] | [place] [address] | | | SERVICES, CORE | [address] | | | + + + + + CULTURE, BLOOD BACTI & YEAST [facility] (03/19/2012 1:10 AM PST) + + + + + + | Component | Value | Ref Range | Performed | Pathologist | | | | | At | Signature | + + + + + + | BLOOD | Final Report:No Bacteria | Final Report:No | [facility] | | | CULTURE | or Yeast [...] | + + + + + | [facility] | [address] | [place] [address] | | | SERVICES, CORE | BERTRAM [...] [facility] | [address] | [place], [place] | | | OSCAR POINT OF CARE | [address] | [address] | | | TESTS | | | [...] | + + + + + | [facility] | [address] | [place] [address] | | | JANELL SHARP | BERTRAM [...] (H) | 60 - 99 mg/dL | [facility] - | | | GLUCOSE, | [...] [facility]ERS | [address] | [place], [place] | | | [facility]ARE | [address] | [address] | | | TESTS | | | [...] | + + + + + | [facility] | [address] | [place] [address] | | | SERVICES, CORE | PARK [...] [facility] | [address] | [place] [address] | | | SERVICES, CORE | PARK [...] + + | [facility] | [address] [facility] [address] | [place], [place] | | | [facility] | [facility] | [address] | | | TESTS | | | | + + + + + OPERATION RECORD (03/18/2012 11:22 AM PST) + + | Transcriptions | + + | Mirela Salgaod MD - 03/18/2012 8:38 AM PST Date: 03/17/2012ttending | | Surgeon: Mirela Salgado M.D.Filer And Sander(s): Sandoval | | Bennett Galvez M.D.Preoperative Diagnosis(es):Embolus, [...] | | tolerated the procedure well.MIRELA SALGADO, [facility] / [id number] / | | [id number] / [id number] / T: 03/17/2012 | |was no pulse. [...] | | | |MIRELA SALGADO MD | |manufacturing technician | | | |GLM / HS | |[id number] / [id number] / [id number] / | | | | | + [...] | + + + + + | [facility] | [address] | [place] [address] | | | SERVICES, CORE | BERTRAM [...] [facility] | [address] | [place] [address] | | | SERVICES, CORE | PARK [...] [facility] | [address] | [place] [address] | | | SERVICES, CORE | PARK [...] [facility] | [address] | [place] [address] | | | SERVICES, CORE | PARK [...] | + + + + + | [facility] | [address] | [place] [address] | | | SERVICES, CORE | PARK [...] | + + + + + | [facility] | [address] | [place] [address] | | | JANELL SHARP | PARK [...] | + + + + + | [facility] | [address] | [place] [address] | | | JANELL SHARP | BERTRAM [...] (H) | 60 - 99 mg/dL | [facility] - | | | GLUCOSE, | [...] [facility] | [address] | [place], [place] | | | OSCAR POINT OF CARE | [address] | [address] | | | TESTS | | | [...] [facility] | [address] | [place], [place] | | | [facility] | [facility] | [address] | | | TESTS | | | [...] [facility] | [address] | [place] | | | [facility]SCAR POINT OF CARE | [facility] | [address] | | | TESTS | | | [...] [facility] | [address] | [place] [address] | | | SERVICES, CORE | PARK [...] | + + + + + | [facility] | [address] | [place] [address] | | | SERVICES, CORE | PARK [...] [facility] | [address] | [place] [address] | | | SERVICES, CORE | PARK [...] | + + + + + | [facility] | [address] | [place] [address] | | | SERVICES, CORE | BERTRAM [...] [facility] | [address] | [place], [place] | | | [facility]SCAR POINT OF CARE | [address] | [address] | | | TESTS | | | [...] [facility] | [address] | [place] [address] | | | SERVICES, | [address] [...] | + + + + + | [facility] | [address] | [place] [address] | | | SERVICES, | [address] [...] | + + + + + | [facility] | [address] | [place] [address] | | | ARON, [facility] | [address] | | | + [...] SANDERS | [address] | [place] | | | [address] [facility] | [address] | [address] | | | TESTS | | | [...] [facility] | [address] | [place], [place] | | | OSCAR POINT OF CARE | [address] | [address] | | | TESTS | | | [...] - [facility] | [address] | [place], [place] | | | OSCAR POINT OF CARE | [address] | [address] | | | TESTS | | | [...] | + + + + + | [facility] | [address] | [place] [address] | | | SERVICES, CORE | BERTRAM [...] (H) | 60 - 99 mg/dL | [facility] - | | | GLUCOSE, | [...] [facility] | [address] | [place], [place] | | | [facility] | [facility] | [address] | | | TESTS | | | [...] Dalteparin, LMWH: 0.70 - 1.20 U/mL | RAON, CORE | | Tinzaparin, LMWH: Therapeutic range [...] | + + + + + | [facility] | [address] | [place] [address] | | | ARON, [facility] | [address] | | | + [...] [facility] | [address] | [place] [address] | | | SERVICES, CORE | PARK [...] | + + + + + | [facility] | [address] | [place] [address] | | | JANELL SHARP | BERTRAM [...] | + + + + + | [facility] | [address] | [place] [address] | | | SERVICES, CORE | BERTRAM [...] (H) | 60 - 99 mg/dL | [facility] - | | | GLUCOSE, | [...] S[facility]ERS | [address] | [place], [place] | | | [facility] | [address] | [address] | | | TESTS | | | [...] [facility] | [address] | [place] | | | [facility] | [address] | [address] | | | TESTS | | | [...] | | + +---------+ + + | [facility] DEPARTMENT OF | | | | [...] Kirstie | | | | | | [place] | | | | + + + [...] [facility] | [address] | [place] | | | [facility]SCAR POINT OF CARE | [address] | [address] | | | TESTS | | | [...] [facility] | [address] | [place], [place] | | | [facility]SCAR POINT [facility] CARE | [address] | [address] | | | TESTS | | | [...] [facility] | [address] | [place] [address] | | | SERVICES, SPECIAL | PARK [...] + + | [facility] | [address] [facility] | [place] [address] | | | SERVICES, SPECIAL | BERTRAM [...] [facility] | [address] | [place] [address] | | | SERVICES, SPECIAL | PARK [...] [facility] | [address] | [place] [address] | | | SERVICES, SPECIAL | PARK [...] [facility] | [address] | [place] [address] | | | SERVICES, CORE | PARK [...] | + + + + + | [facility] | [address] | [place] [address] | | | SERVICES, CORE | PARK [...] [facility] | [address] | [place] [address] | | | SERVICES, CORE | PARK [...] | + + + + + | [facility] | [address] | [place] [address] | | | SERVICES, JANELL | BERTRAM [...] [facility] | [address] | [place] | | | [facility] | [address] | [address] | | | TESTS | | | [...] | + + + + + | [facility] | [address] | [place] [address] | | | SERVICES, CORE | BERTRAM [...] (H) | 60 - 99 mg/dL | [facility] - | | | GLUCOSE, | [...] SANDERS | [address] | [place], [place] | | | [facility] [place] | [facility] | [address] | | | TESTS | | | [...] [facility] | [address] | [place] | | | OSCAR POINT OF CARE | [address] | [address] | | | TESTS | | | [...] Davina | | | | | | Crook | | | | + + + [...] [facility] | [address] | [place] | | | [facility] | [address] | [address] | | | TESTS | | | [...] + + + + | PRODUCT | [id number] | | [facility] | | | UNIT [...] + + + + | BLOOD | [id number] | | [facility] | | | PRODUCT [...] | + + + + + | [facility] | [address] | [place] [address] | | | PATHOLOGY | [address] [...] + + + + | PRODUCT | [id number] | | [facility] | | | UNIT [...] + + + + | BLOOD | 78309 | | [facility] | | | PRODUCT [...] DEPARTMENT OF | [address] | [place] [address] | | | PATHOLOGY | [address] [...] [facility] | [address] | [place] [address] | | | SERVICES, CORE | PARK [...] [facility] | [address] | [place], [place] | | | OSCAR POINT OF CARE | [address] | [address] | | | TESTS | | | [...] + + + | [facility] | [address] | [place] | | | [facility] | [address] | [address] | | | TESTS | | | [...] [facility] | [address] | [place] [address] | | | SERVICES, CORE | PARK [...] [facility] | [address] | [place] [address] | | | SERVICES, CORE | PARK [...] | + + + + + | [facility] | [address] | [place] [address] | | | SERVICES, CORE | BERTRAM [...] if | | | | | | [id number] >400: | | | | | | [...] + | [facility] - | [address] | [place] [address] | | | [place] | | | [...] [facility] | [address] | [place] [address] | | | SERVICES, CORE | PARK [...] [facility] | [address] | [place] [address] | | | SERVICES, CORE | PARK [...] | + + + + + | [facility] | [address] [facility] | [place] [address] | | | SERVICES, CORE | PARK [...] + | [facility] - | [address] | [place] [address] | | | [place] | | | | + + + [...] - [facility] | [address] | [place], [place] | | | OSCAR POINT OF CARE | [facility] | [address] | | | TESTS | | | [...] [facility] | [address] | [place] [address] | | | SERVICES, CORE | PARK [...] [facility] | [address] | [place] [address] | | | ARON, JANELL | BERTRAM [...] 98 | 60 - 99 mg/dL | [facility] - | | | GLUCOSE, | [...] [facility] | [address] | [place] | | | [facility] | [address] | [address] | | | TESTS | | | [...] | + + + + + | [facility] | [address] | [place] [address] | | | SERVICES, CORE | PARK [...] gas. | | | | | | Ifgzzy-qf-dzfhmg left | | | | | | [...] | | + +---------+ + + | [facility] DEPARTMENT OF | | | | [...] [facility] | [address] | [place] | | | [facility]ARE | [address] | [address] | | | TESTS | | | [...] % | [facility] | | | | [employer],[address] | | REG UNIV | | | | Jarett Card, [facility] | | PTH - INTFC | | | | [address] | | | | | | [phone].[id number]. | | | | | | Kaitlin [...] [facility] | [address] | [place], [place] | | | UNIV PTH - INTFC | | [address] | | + + + + + [...] | + + + + + | [facility] | [address] | [place] [address] | | | SERVICES, JANELL | BERTRAM [...] [facility] | [address] | [place] [address] | | | JANELL SHARP | BERTRAM [...] [facility] | [address] | [place] | | | [address] [facility] | [address] | [address] | | | TESTS | | | [...] [facility] | [address] | [place] [address] | | | SERVICES, CORE | PARK [...] | + + + + + | [facility] | [address] | [place] [address] | | | SERVICES, CORE | BERTRAM [...] [facility] | [address] | [place], [place] | | | KAILEY MOORE | [facility] | [address] | | | TESTS | | | [...] | + + + + + | [facility] | [address] | [place] [address] | | | JANELL SHARP | BERTRAM [...] [facility] | [address] | [place] [address] | | | SERVICES, JANELL | PARK [...] | + + + + + | [facility] | [address] | [place] [address] | | | JANELL SHARP | BERTRAM [...] [facility] | [address] | [place] [address] | | | SERVICES, JANELL | BERTRAM [...] [facility] | [address] | [place] [address] | | | SERVICES, CORE | PARK [...] [facility] | [address] | [place] [address] | | | SERVICES, CORE | PARK [...] | | | | Final | | [place] | | | | CULTURE RESULT:No growth [...] + + + + + | [email or web address] - | [address] | [place] [address] | | | [place] | | | | + + + [...] | | | Final CULTURE | | [place] | | | | RESULT:Salmonella, | | [...] days. | AIRPORT - | | | [place] | + + + + + + + + | Performing | Address | City/State/Zipcode | Phone Number | | Organization | | | | + + + + + | [facility] - | [address] | [place] [address] | | | [place] | | | [...] | + + + + + | [facility] | [address] | [place] [address] | | | SERVICES, CORE | BERTRAM [...] [facility] | [address] | [place], [place] | | | [facility]ARE | [address] | [address] | | | TESTS | | | [...] view image for the detailed interpretation from [employer] results. | CARDIOLOGY | + + + + + + + + | Performing | Address | City/State/Zipcode | Phone Number | | Organization | | | | + + + + + | [facility] | [address] | [place], [place] | | | CARDIOLOGY | [address] | [address] | | + + + + + [...] | | + +---------+ + + | [facility] DEPARTMENT OF | | | | [...] | + + + + + | [facility] | [address] | [place] [address] | | | SERVICES, CORE | PARK [...] + + | [facility] | [address] [facility] | [place] [address] | | | SERVICES, CORE | BERTRAM [...] | + + + + + | [facility] | [address] | [place] [address] | | | SERVICES, CORE | BERTRAM [...] | + + + + + | [facility] | [address] | [place] [address] | | | SERVICES, CORE | BERTRAM [...] (H) | 60 - 99 mg/dL | [facility] - | | | GLUCOSE, | [...] S[facility]ERS | [address] | [place] | | | [facility] | [address] | [address] | | | TESTS | | | [...] [facility] | [address] | [place] [address] | | | SERVICES, CORE | PARK [...] | [facility] | [address] | [place] [address] | | | SERVICES, CORE | PARK [...] | + + + + + | [facility] | [address] | [place] [address] | | | SERVICES, | [address] [...] [facility] | [address] | [place] [address] | | | SERVICES, | [address] [...] | 30.3 | 26.0 - 36.0 | [facility] | | | | | sec. [...] [facility] | [address] | [place] [address] | | | JANELL SHARP | BERTRAM [...] [facility] | [address] | [place] [address] | | | SERVICES, CORE | PARK [...] | + + + + + | [facility] | [address] | [place] [address] | | | SERVICES, CORE | BERTRAM [...] | | First dose on [facility] 03/23/12 at | | | | [...] | dose, First dose on [facility] 03/30/12 | | | | | [...] | Hours, ONCE, 1 dose, [facility] 03/16/12 | | | | | [...] | | | 1115, Until [facility] 03/30/12 at 1055, | | | [...] | oral, ONCE, 1 dose, [facility] 03/30/12 | | PM PST | [...] | | | oral, ONCE, 1 dose, [facility] 03/17/12 | | PM PST | [...] | | | oral, ONCE, 1 dose, [facility] 03/19/12 | | PM PST | | | | | at 1430 | | | | | | + +-------+ +--------+---+---+ +---+---+ | | | +---+---+ + +-------+ +--------+---+---+ | potassium chloride (aka | Given | 03/26/20 | 40 mEq | | | | CAROL-KENISHA) packet 40 mEq 40 mEq, | | 12 12:06 | | | | | oral, ONCE, 1 dose, [facility] 03/26/12 | | PM PST | | | | | at 1000 | | | | | | + +-------+ +--------+---+---+ +---+---+ | | | +---+---+ + +---------+ +--------+--------+---+ | potassium chloride IV 40 mEq | New Bag | 03/12/20 | 40 mEq | mL/hr | | | 40 mEq, intravenous, ONCE, 1 | | 12 8:32 | | | | | dose, [facility] 03/12/12 at 2100 | | PM PST | | | | + +---------+ +--------+--------+---+ +---+---+ | | | +---+---+ + +---------+ +--------+--------+---+ | potassium chloride IV 40 mEq | New Bag | 03/17/20 | 40 mEq | mL/hr | | | 40 mEq, intravenous, ONCE, 1 | | 12 7:07 | | | | | dose, [facility] 03/17/12 at 1630 | | PM [...] | | | NEEDED, Starting [facility] 03/16/12 at | | | | | | | 0815, Until [facility] 03/19/12 at 0713, | | | | [...] | | | | | [facility] 03/30/12 at 2300 | | PM [...] | | | modification) on [facility] 03/23/12 at | | | | [...]
--- OUTSIDE RECORDS SUMMARY | ~2019-11-03 | XMS | Clinical Summary ---
Demographics + + + | Address | [address] | | | [place] [address] | + + + | Home Phone | | + + + | Preferred Language | Unknown | + + + | Marital Status | | + + + | Restorationism Affiliation | NRP | + + + | Race | White | + + + | Ethnic Group | Not or | + + + Author + + + | Author | [facility] | + + + | Organization | [facility] | + + + [...] [place], [place] | | | | | [address] | | + + + + + | Cami Sawyer | ECON | Unknown | | + + + + + Care Team Providers + +------+ + | Care Language Specialist Name | Role | Phone | + +------+ + | Aren Rose DO | PCP | | + +------+ + Source Comments [facility] is fully live on both EpicCare Ambulatory and EpicCare InPatient[facility] Allergies + + + + [...] + | Overview: Vaccinations given at [facility] pneumonia and flu and | | at [facility] HIB and meningeal coccal 04/25 | [...] | | | | | | | [address] | | + +--------+ +--------+ + +--------+ | [employer] | [employer] | xxxxxxxxx-x | 04/11/19 | [phone] | [address] | Indemn | | RETIRED PEOPLE | | | 13-Pre | 9 | [id number] | ity | | | | | sent | | [place], [place] | | | | | | | | [address] | | + +--------+ +--------+ + +--------+ [...] | 1956 | [phone] | [place] [address] | | | bianca | | | 8 (Home) | | | | | | | [phone] | | | | | | | [...]
--- OUTSIDE RECORDS SUMMARY | ~2019-11-03 | XMS | Encounter Summary ---
Demographics + + + | Address | [address] | | | [place] [address] | + + + | Home Phone [...] [place], [place] | | | | | [address] | | + + + + + | Cami Sawyer | ECON | Unknown | | + + + + + Care Team Providers + +------+ + | Care Family Law Specialist Name | Role | Phone | [...] Only | [address] [facility] | [phone] | | | | | Romeo Kristen | | | | | | [place], [place] | | | | | | [address] | | | +--------+ + + + [...] DEPT OF | [address] | [place], [place] | | | CARDIOLOGY | [address] | [address] | | + + + + + documented in this encounter Visit Diagnoses Not on filedocumented in this encounter"
--- OUTSIDE RECORDS SUMMARY | ~2019-11-03 | XMS | Encounter Summary ---
Demographics + + + | Address | [address] | | | [place] [address] | + + + | Home Phone | | + + + | Preferred Language | Unknown | + + + | Marital Status | | + + + | Christianity Affiliation | Unknown | + + + | Race | Unknown | + + + | Ethnic Group | Unknown | + + + Author + + + | Author | [facility] | | | and [place] | + + + | Organization | [facility] | | [...] Team Providers + +------+ + | Care Geodesy Teacher Name | Role | Phone | [...] + + | 03/15/ | Telephone | [facility] | Severo, | Appointment | | 2019 | | GENERAL SURGERY [address] | [address] | | | | | [address] | [address] | | | | | [place], [place] | [place] [address] | | | | | [address] | [phone] | | | | | [phone] | | | +--------+ + + + [...] Miscellaneous Notes Telephone Encounter - Dulce Marquez, Funeral Service Apprentice - 03/15/2019 9:13 AM MIRYAM he attempted to contact this patient by phone with the following results: LVM stating I am ca lling to schedule appointment regarding edwinon. Left office phone number and encouraged abiodun jayesh to return my call. Electronically signed by Dulce Marquez Funeral Service Apprentice at 08/2018 9:14 AM PSTdocumented in this [...]
--- OUTSIDE RECORDS SUMMARY | ~2019-11-03 | XMS | Encounter Summary ---
Demographics + + + | Address | [address] | | | [place] [address] | + + + | Home Phone [...] Providers + +------+ + | Care Senior Writer Name | Role | Phone | + +------+ + PCP | Unavailable | + +------+ + Encounter Details +--------+ + + + + | Date | Type | Department | Care Team | Description | +--------+ + + + + | 03/01/ | [facility] | [facility] | Conversion | | | 2017 | Encounter | [facility] XRAY | Transaction, | | | | | [address] | Provider Unknown | | | | | [place], [place] | | | | | | [address] | (Fax) | | | | | [phone] | | | +--------+ + + + [...]
--- OUTSIDE RECORDS SUMMARY | ~2019-11-03 | XMS | Encounter Summary ---
Demographics + + + | Address | [address] | | | [place] [address] | + + + | Home Phone | | + + + | Preferred Language | Unknown | + + + | Marital Status | | + + + | Buddhist Affiliation | Unknown | + + + [...] Team Providers + +------+ + | Care Soil Checker Name | Role | Phone | + [...] Provider Unknown | | | | | [place], [place] | [phone] | | | | | [address] | | | | | | [phone] | | | +--------+ + + + [...]
--- OUTSIDE RECORDS SUMMARY | ~2019-11-03 | XMS | Encounter Summary ---
Demographics + + + | Address | [address] | | | [place] [address] | + + + | Home Phone | | + + + | Preferred Language | Unknown | + + + | Marital Status | | + + + | Tenriism Affiliation | Unknown | + + + [...] Team Providers + +------+ + | Care Registered Nurse Hh Case Manager Name | Role | Phone | + +------+ + PCP | Unavailable | + +------+ + Encounter Details +--------+ + + + + | Date | Type | Department | Care Team | Description | +--------+ + + + + | 11/05/ | Hospital | [facility] | Gina Haines DO | Chest pain, | | 2015 - | Encounter | [facility] | [address] | unspecified chest | | | | CARE [address]LO[address] | [place] [address] | pain type; | | 11/10/ | | [address] | [phone] | Pyelonephritis; | | 2014 | | [place], [place] | | Acute nonintractable | | | | [address] | | headache, | | | | [phone] | | unspecified headache | | | [...] Date of Service: 11/10/14 100 Status: Signed Glue Maker: Rosmery Oden MD (Physician) [facility] Service: Hospitalist Discharge Summary Date of Admission: 11/05/2014 Date of Discharge: 11/10/2014, 2 PM Discharge Provider: ROSMERY ODEN MD Treatment Team: Consulting Physician: Raphael Turner DO Admitting Provider: Gina Haines DO Discharge Diagnoses: Principal Problem (Resolved): Sepsis(995.91) ([facility]) Active Problems: Hypertension Immunocompromised state (HCC) Crohn [...] who was admitted as a transfer from [facility] due to sepsis and altered mental [...] Vancomycin and she was then transferred to [facility]. Upon arr ival she was febrile and [...] primary care physician about referral to a Immigration Associate at [facility] for further evaluation of Chohn's Disease. Discuss [...] Tolerated Follow up: Neel Fernandes MD [address] [place] [id number] In 4 days As scheduled. 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 You may get the following medications [...] Notes by Rosmery Oden MD at 11/09/14 1449 Author: Rosmery Oden MD Service: Hospitalist Author Type: Physician Filed: 11/09/14 7251 Date of Service: 11/09/141445 Status: Signed Glue Maker: Rosmery Oden MD (Physician) [facility] Service: Hospitalist Progress Note Mackenzie Willingham 59 y.o. 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 She was then transferred to [facility], upon arriv al she was febrile and [...] or aneurysm. 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 No Focus for Next Treatment Stair Training (standing HEP ) PT Eval/Reassessment Date 11/09/14 Assistance Required 1 person Potato Peeler Needed No Precautions Other Precautions 2falls in [...] she was going to OP PT in [place]. She indicates her will be home for [...] Barriers to Discharge Physical Deficits Impacting Functional [place] [facility] Ready for Discharge Yes (pt.'s will be home until school starts ) onver roshan Transaction, Provider Unknown - 11/09/2014 2:13 PM PDT Nurse Progress Note by Eliza Cheng RN at 11/09/14 0543 Author: Eliza Cheng RN Service: (none) Author Type: Registered Nurse Filed: 11/09/14 1416 Date of Service: 11/09/141412 Status: Signed Glue Maker: Eliza Cheng, RN (Registered Nurse) Per pt: [...] 1442 Date of Service: 11/09/14856 Status: Signed Glue Maker: Ev Mas MD (Physician) [facility] Service: Infectious Disease Progress Note Hospital [...] who was admitted as a transfer from [facility] due to sepsis and a ltered [...] Vancomycin. She was then transferr ed to [facility], upon arrival she was febrile and labs [...] normal glucose. PROBLEM LIST Principal Problem: Sepsis(995.91) ([facility]) Active Problems: Diarrhea Encephalopathy acute Delirium [...] 1725 Date of Service: 11/08/14841 Status: Signed Glue Maker: Rosmery Oden MD (Physician) [facility] Service: Hospitalist Progress Note Mackenzie Willingham 59 y.o. 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 She was then transferred to [facility], upon arriv al she was febrile and [...] or aneurysm. 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 Hyponatremia [...] 1500 Date of Service: 11/08/14806 Status: Signed Glue Maker: Ev Mas MD (Physician) [facility] Service: Infectious Disease Progress Note Hospital [...] who was admitted as a transfer from [facility] due to sepsis and a ltered [...] Vancomycin. She was then transferr ed to [facility], upon arrival she was febrile and labs [...] [facility] Service: Wound/Ostomy Care Author Type: Nurse Signal Integrity Engineer Filed: 11/07/149 Date of Service: 11/07/141106 Status: Signed Glue Maker: Anthony Correa (Nurse Signal Integrity Engineer) Patient seen today for low Marck score. [...] 1719 Date of Service: 11/07/14908 Status: Addendum Glue Maker: Rosmery Oden MD (Physician) Related Notes: Original Note by Rosmery Oden MD (Physician) filed at 11/07/14 17 18 [facility] Service: Hospitalist Progress Note Mackenzie Willingham 59 y.o. 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 She was then transferred to [facility], upon arriv al she was febrile and [...] Service: (none) Author Type: Physician Filed: 11/07/14 5588 Date of Service: 11/07/14 0809 Status: Signed Glue Maker: Raphael Turner DO (Physician) [facility] Service: Infectious Disease Progress Note Hospital [...] normal glucose. PROBLEM LIST Principal Problem: Sepsis(995.91) ([facility]) Active Problems: Diarrhea Encephalopathy acute Delirium [...] followup on Tuesday11/08/14. Code Status: Full Code ARPHAEL TURNER DO 11/07/2014 Rosmery Velasquez M D - 11/06/2014 8:45 AM PDT Progress Notes by Rosmery Oden MD at 11/06/14 0845 Author: Rosmery Oden MD Service: Hospitalist Author Type: Physician Filed: 11/06/14 1700 Date of Service: 11/06/14 0845 Status: Addendum Glue Maker: Rosmery Oden MD (Physician) Related Notes: Original Note by Rosmery Oden MD (Physician) filed at 11/06/14 16 57 [facility] Service: Hospitalist Progress Note Mackenzie Willingham 59 y.o. 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 Apparently, she developed nausea, vomiting and diarrhea for four days and was very lethargic . Her has been giving all her medications including narcotics Oxycodone Morphine sul fate. Her labs there showed leukocytosis and findings of UTI. She was started IV fluids and given one dose of Zosyn, Flagyl and Vancomycin. 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 Will monitor CBC and continue [...] AM PDT Progress Notes by Rosita Bertrand [facility] at 11/06/14543 Author: Rosita Bertrand RPH Service: (none) Author Type: Pharmacist Filed: 11/06/1444 Date of Service: 11/06/14543 Status: Signed Glue Maker: Rosita Bertrand RPH (Pharmacist) Clinical Pharmacy Note: [...] 11/06/14610 Date of Service: 11/06/14445 Status: Signed Glue Maker: Livia Deshpande RN (Registered Nurse) Called pts husbands phone number to complete the MRI form. Left a message with him to call [facility]. docume nted in this encounter H&P Notes Gina Haines DO - 11/05/2014 11:53 PM PDTFormatting of this note might be different from t velvet original. H&P by Gina Haines DO at 11/05/14 0573 Author: Gina Haines DO Service: Hospitalist Author Type: Physician Filed: 11/06/14440 Date of Service: 11/05/142352 Status: Signed Glue Maker: Gina Haines DO (Physician) [facility] Service: Hospitalist Admission History & Physical Date of Admission: 11/05/2014 Primary Care Physician: Neel Fernandes History Obtained From: Mostly , quality of the history poor. CHIEF COMPLAINT: Altered mental status, fever and emesis. Transferred from [facility] w ith an elevated white blood cell [...] who presents as a tr cristina from [facility] for further evaluation. CC of Vomiting and [...] asleep ER findings: Leukocytosis, thrombocytosis, mild hyponatremia. [facility] Incontinent of urine in his stool ER treatment: Medications at [facility] morphine 20+ mg total, 2 L normal saline, Zosyn , Flagyl, Vancomycin and IV Phenergan. At [facility] Tylenol and Zofran. REVIEW OF SYSTEMS unable [...] Procedure: ESOPHAGOGASTRODUODENOSCOPY; Surgeon: Bony Petty MD; Location: [facility] BEDSIDE PROCEDURE; Service: Gastroenterology; Laterality: N/A; Laparotomy N/A 04/23/2014 Procedure: EXPLORATION - LAPAROTOMY; Surgeon: Bogdan Moser DO; Location: [facility] MAIN OR; Service: General; Laterality: N/A; Splenectomy, total N/A 04/23/2014 Procedure: SPLENECTOMY; Surgeon: Bogdan Moser DO; Location: [facility] MAIN OR; Service: General; Laterality: [...] Procedure Component Value Units Date/Time Cardiac Panel [[id number]] (Abnormal) Collected: 11/05/14 2342 WBC 24.99 (H) [...] for results. Given Zosyn and Vancomycin at [facility], would recommend morning hospi talist to [...] management of chronic medical conditions Dictation software, FitBionic, used which may contain error for similar [...] Date of Service: 11/06/14 1530 Status: Signed Glue Maker: JENARO Alexis (Advanced Registered Nurse Practitioner) Pre-procedure [...] Date of Service: 11/06/14 1252 Status: Signed Glue Maker: Raphael Turner DO (Physician) [facility] Service: Infectious Disease Initial Consult Note [...] and thrombosis of the splenic artery, COPD, Liquid Floor And Wall Applier hn's, pyelonephritis, sepsis, chronic pain, inmunosuppression due to corticoid steroids, tob acco abuse, respiratory failure requiring mechanical ventilation and other comorbid conditio ns who presents as a transfer from [facility] for further evaluation. 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 Jared Singh RN 11/05/142350 onver roshan Transaction, Provider Unknown - 11/05/2014 11:41 PM PDT ED Notes by Jared Singh RN at 11/05/142340 Author: Jared Singh RN Service: (none) Author Type: Registered Nurse Filed: 11/05/142340 Date of Service: 11/05/142340 Status: Signed Glue Maker: Jared Singh RN (Registered Nurse) RT paged for ABG. Jared Singh RN 11/05/142340 onver roshan Transaction, Provider Unknown - 11/05/2014 11:12 PM PDT ED Notes by Jared Singh RN at 11/05/142311 Author: Jared Singh RN Service: (none) Author Type: Registered Nurse Filed: 11/05/142314 Date of Service: 11/05/142311 Status: Addendum Glue Maker: Jared Singh RN (Registered Nurse) Related Notes: [...] patient with diarrhea. Jared Singh RN 11/05/14 5950 old, Rich Villanueva DO - 11/05/2014 9:35 PM PDT ED Provider Notes by Rich Padilla DO at 11/05/142134 Author: Rich Padilla DO Service: Emergency Department Author Type: Physician Filed: 11/06/14 1021 Date of Service: 11/05/142134 Status: Signed Glue Maker: Rich Padilla DO (Physician) [facility] Department of Emergency Medicine Pre-arrival Provider: Another ED Provider Name: LUKASZ Sharp at [facility] ED Pertinent History and Concerns: Admitted 2 weeks ago at [facility] for UTI, last dose abx y . 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 Rich Padilla D.O. Dictation software, FitBionic, used which may contain error for similar [...] 11/05/142132 Date of Service: 11/05/142132 Status: Signed Glue Maker: Jared Singh RN (Registered Nurse) Dr Padilla at bedside for exam. Jared Singh RN 11/05/142132 onver roshan Transaction, Provider Unknown - 11/05/2014 9:16 PM PDT ED Notes by Jared Singh RN at 11/05/142115 Author: Jared Singh RN Service: (none) Author Type: Registered Nurse Filed: 11/05/142115 Date of Service: 11/05/142115 Status: Signed Glue Maker: Jared Singh RN (Registered Nurse) tool repair technician notified of cardiac monitoring. Jared Singh RN 11/05/142115 onver roshan Transaction, Provider Unknown - 11/05/2014 9:00 PM PDT ED Notes by Jared Singh RN at 11/05/142099 Author: Jared Singh RN Service: (none) Author Type: Registered Nurse Filed: 11/05/142099 Date of Service: 11/05/142099 Status: Signed Glue Maker: Jared L Singh, RN (Registered Nurse) Bed: [...] 0013 Date of Service: 11/08/142014 Status: Signed Glue Maker: Gayatri Dumont RN (Registered Nurse) Problem: Pain [...] 11/07/141157 Date of Service: 11/07/141157 Status: Signed Glue Maker: Abhi Thomas RN (Registered Nurse) Daily Care [...] 11/06/141343 Date of Service: 11/06/141343 Status: Signed Glue Maker: Abhi Thomas RN (Registered Nurse) Daily Care [...] [place] | | | | | | [address] | | | | + + + + + + | Non- | 3.74Comment: Testing | 3.70 - 5.10 | EXTERNAL | | | Red Blood | performed at [facility], [address] | M/uL | LAB | | | Cells | [address], | | | | | Counted | [place] [address] | | | | + + + + + + | Hemoglobin | 11.3Comment: Testing | 11.3 - 15.5 | EXTERNAL | | | | performed at [facility], [address] | g/dL | LAB | | | | [address], | | | | | | [place] [address] | | | | + + + + + + | Hematocrit, | 35.4Comment: Testing | 34.0 - 46.0 % | EXTERNAL | | | POC | performed at [facility], [address] | | LAB | | | | [address], | | | | | | [place] [address] | | | | + + + + + + | MCV | 94.7Comment: Testing | 80.0 - 100.0 fl | EXTERNAL | | | | performed at [facility], [address] | | LAB | | | | [address], | | | | | | [place] [address] | | | | + + + + + + | MCH | 30.3Comment: Testing | 27.0 - 34.0 pg | EXTERNAL | | | | performed at [facility], [address] | | LAB | | | | [address], | | | | | | [place] [address] | | | | + + + + + + | MCHC | 32.0Comment: Testing | 32.0 - 35.5 | EXTERNAL | | | | performed at [facility], [address] | g/dL | LAB | | | | [address], | | | | | | [place] [address] | | | | + + + + + + | RDW-CV | 59.5 (H)Comment: Testing | 37 - 53 fl | EXTERNAL | | | | performed at [facility], [address] | | LAB | | | | [address], | | | | | | [place] [address] | | | | + + + + + + | Platelet | 393Comment: Testing | 150 - 400 K/uL | EXTERNAL | | | Count | performed at [facility], [address] | | LAB | | | Plasma | [address], | | | | | | [place] [address] | | | | + + + + + + | MPV | 8.4Comment: Testing | fl | EXTERNAL | | | | performed at [facility], [address] | | LAB | | | | [address], | | | | | | [place] [address] | | | | + + + [...] | | | | performed at [facility];[address] | | | | | | [facility], [place] | | | | | | [address] | | | | + + + [...] [place] | | | | | | [address] | | | | + + + + + + | Non- | 3.75Comment: Testing | 3.70 - 5.10 | EXTERNAL | | | Red Blood | performed at [facility], [address] | M/uL | LAB | | | Cells | [address], | | | | | Counted | [place] [address] | | | | + + + + + + | Hemoglobin | 11.2 (L)Comment: Testing | 11.3 - 15.5 | EXTERNAL | | | | performed at [facility], [address] | g/dL | LAB | | | | [address], | | | | | | [place] [address] | | | | + + + + + + | Hematocrit, | 36.1Comment: Testing | 34.0 - 46.0 % | EXTERNAL | | | POC | performed at [facility], [address] | | LAB | | | | [address], | | | | | | [place] [address] | | | | + + + + + + | MCV | 96.2Comment: Testing | 80.0 - 100.0 fl | EXTERNAL | | | | performed at [facility], [address] | | LAB | | | | [address], | | | | | | [place] [address] | | | | + + + + + + | MCH | 30.0Comment: Testing | 27.0 - 34.0 pg | EXTERNAL | | | | performed at [facility], [address] | | LAB | | | | [address], | | | | | | [place] [address] | | | | + + + + + + | MCHC | 31.2 (L)Comment: Testing | 32.0 - 35.5 | EXTERNAL | | | | performed at [facility], [address] | g/dL | LAB | | | | [address], | | | | | | [place] [address] | | | | + + + + + + | RDW-CV | 58.6 (H)Comment: Testing | 37 - 53 fl | EXTERNAL | | | | performed at [facility], [address] | | LAB | | | | [address], | | | | | | [place] [address] | | | | + + + + + + | Platelet | 391Comment: Testing | 150 - 400 K/uL | EXTERNAL | | | Count | performed at [facility], [address] | | LAB | | | Plasma | [address], | | | | | | [place] [address] | | | | + + + + + + | MPV | 8.6Comment: Testing | fl | EXTERNAL | | | | performed at [facility], [address] | | LAB | | | | [address], | | | | | | [place] [address] | | | | + + + [...] | | | | performed at [facility] | | | | | | [facility];[place], [place] | | | | | | [address] | | | | + + + [...] | | | | | [place] [address] | | | | + + + + + + | K | 3.4 (L)Comment: Testing | 3.5 - 4.9 | EXTERNAL | | | | performed at [facility], [address] | mmol/L | LAB | | | | [address], | | | | | | [place] [address] | | | | + + + + + + | Cl | 109Comment: Testing | 99 - 109 mmol/L | EXTERNAL | | | | performed at [facility], [address] | | LAB | | | | [address], | | | | | | [place] [address] | | | | + + + + + + | CO2 | 20 (L)Comment: Testing | 23 - 32 mmol/L | EXTERNAL | | | | performed at [facility], [address] | | LAB | | | | [address], | | | | | | [place] [address] | | | | + + + + + + | Anion Gap | 11Comment: Testing | 5 - 20 mmol/L | EXTERNAL | | | | performed at [facility], [address] | | LAB | | | | [address], | | | | | | [place] [address] | | | | + + + + + + | Glucose, | 74Comment: Testing | 65 - 99 mg/dL | EXTERNAL | | | Fasting | performed at [facility], [address] | | LAB | | | | [address], | | | | | | [place] [address] | | | | + + + + + + | BUN | 8Comment: Testing | 8 - 25 mg/dL | EXTERNAL | | | | performed at [facility], [address] | | LAB | | | | [address], | | | | | | [place] [address] | | | | + + + + + + | Creatinine | 0.57Comment: Testing | 0.50 - 1.00 | EXTERNAL | | | | performed at [facility], [address] | mg/dL | LAB | | | | [address], | | | | | | [place] [address] | | | | + + + + + + | BUN/Creatin | 14Comment: Testing | | EXTERNAL | | | ine Ratio | performed at [facility], [address] | | LAB | | | | [address], | | | | | | [place] [address] | | | | + + + + + + | Calcium | 8.5Comment: Testing | 8.5 - 10.5 | EXTERNAL | | | | performed at [facility], [address] | mg/dL | LAB | | | [address], | | | | | | [place] [address] | | | | + + + + + + | Protein, | 5.9 (L)Comment: Testing | 6.3 - 8.2 g/dL | EXTERNAL | | | Total | performed at [facility], [address] | | LAB | | | | [address], | | | | | | [place] [address] | | | | + + + + + + | Albumin | 2.7 (L)Comment: Testing | 3.6 - 5.0 g/dL | EXTERNAL | | | | performed at [facility], [address] | | LAB | | | | [address], | | | | | | [place] [address] | | | | + + + + + + | Globulin | 3.2Comment: Testing | 1.3 - 4.9 g/dL | EXTERNAL | | | | performed at [facility], [address] | | LAB | | | | [address], | | | | | | [place] [address] | | | | + + + + + + | A/G Ratio | 0.8 (L)Comment: Testing | 1.0 - 2.4 | EXTERNAL | | | | performed at [facility], [address] | | LAB | | | | [address], | | | | | | [place] [address] | | | | + + + + + + | Bilirubin | 0.4Comment: Testing | 0.1 - 1.5 mg/dL | EXTERNAL | | | Total | performed at [facility], [address] | | LAB | | | | [address], | | | | | | [place] [address] | | | | + + + + + + | ALP, | 137 (H)Comment: Testing | 35 - 115 U/L | EXTERNAL | | | External | performed at [facility], [address] | | LAB | | | | [address], | | | | | | [place] [address] | | | | + + + + + + | AST | 13Comment: Testing | 10 - 45 U/L | EXTERNAL | | | | performed at [facility], [address] | | LAB | | | | [address], | | | | | | [place] [address] | | | | + + + + + + | ALT | 13Comment: Testing | 10 - 65 U/L | EXTERNAL | | | | performed at [facility], [address] | | LAB | | | | [address], | | | | | | [place] [address] | | | | + + + [...] | | | | | [place] [address] | | | | + + + [...] | | | | performed at [facility] | | | | | | [facility];[place], [place] | | | | | | [address] | | | | + + + [...] [place] | | | | | | [address] | | | | + + + + + + | Non- | 4.07Comment: Testing | 3.70 - 5.10 | EXTERNAL | | | Red Blood | performed at [facility], [address] | M/uL | LAB | | | Cells | [address], | | | | | Counted | [place] [address] | | | | + + + + + + | Hemoglobin | 12.3Comment: Testing | 11.3 - 15.5 | EXTERNAL | | | | performed at [facility], [address] | g/dL | LAB | | | | [address], | | | | | | [place] [address] | | | | + + + + + + | Hematocrit, | 38.1Comment: Testing | 34.0 - 46.0 % | EXTERNAL | | | POC | performed at [facility], [address] | | LAB | | | [address], | | | | | | [place] [address] | | | | + + + + + + | MCV | 93.6Comment: Testing | 80.0 - 100.0 fl | EXTERNAL | | | | performed at [facility], [address] | | LAB | | | | [address], | | | | | | [place] [address] | | | | + + + + + + | MCH | 30.2Comment: Testing | 27.0 - 34.0 pg | EXTERNAL | | | | performed at [facility], [address] | | LAB | | | | [address], | | | | | | [place], [place] [address] | | | | + + + + + + | MCHC | 32.2Comment: Testing | 32.0 - 35.5 | EXTERNAL | | | | performed at [facility], [address] | g/dL | LAB | | | | [address], | | | | | | [place] [address] | | | | + + + + + + | RDW-CV | 59.1 (H)Comment: Testing | 37 - 53 fl | EXTERNAL | | | | performed at [facility], [address] | | LAB | | | | [address], | | | | | | [place] [address] | | | | + + + + + + | Platelet | 390Comment: Testing | 150 - 400 K/uL | EXTERNAL | | | Count | performed at [facility], [address] | | LAB | | | Plasma | [address], | | | | | | [place] [address] | | | | + + + + + + | MPV | 8.4Comment: Testing | fl | EXTERNAL | | | | performed at [facility], [address] | | LAB | | | | [address], | | | | | | [place] [address] | | | | + + + + + + | Differentia | AUTOMATEDComment: | | EXTERNAL | | | l Type | Testing performed at | | LAB | | | | [facility], [address] | | | | | | [place] | | | | | | [address] | | | | + + + + + + | % Segmented | 69.87Comment: Testing | % | EXTERNAL | | | | performed at [facility], [address] | | LAB | | | Neutrophils | [address] [place], | | | | | | [place] [address] | | | | + + + + + + | % | 16.92Comment: Testing | % | EXTERNAL | | | Lymphocytes | performed at [facility], [address] | | LAB | | | | [address], | | | | | | [place] [address] | | | | + + + + + + | % Monocytes | 11.85Comment: Testing | % | EXTERNAL | | | | performed at [facility], [address] | | LAB | | | | [address], | | | | | | [place] [address] | | | | + + + + + + | % | 0.93Comment: Testing | % | EXTERNAL | | | Eosinophils | performed at [facility], [address] | | LAB | | | | [place] [place], | | | | | | [place] [address] | | | | + + + + + + | % Basophils | 0.43Comment: Testing | % | EXTERNAL | | | | performed at [facility], [address] | | LAB | | | | [place], | | | | | | [place] [address] | | | | + + + + + + | Absolute | 12.01 (H)Comment: | 1.90 - 7.40 | EXTERNAL | | | Segmented | Testing performed at | K/uL | LAB | | | Neutrophils | [facility], [address] | | | | | | [place] | | | | | | [address] | | | | + + + + + + | Absolute | 2.91Comment: Testing | 1.00 - 3.90 | EXTERNAL | | | Lymphocytes | performed at [facility], [address] | K/uL | LAB | | | | [address] [place], | | | | | | [place] [address] | | | | + + + + + + | Absolute | 2.04 (H)Comment: Testing | 0.00 - 0.80 | EXTERNAL | | | Monocytes | performed at [facility], [address] | K/uL | LAB | | | | [address] [place], | | | | | | [place] [address] | | | | + + + + + + | Absolute | 0.16Comment: Testing | 0.00 - 0.50 | EXTERNAL | | | Eosinophils | performed at [facility], [address] | K/uL | LAB | | | | [address], | | | | | | [place] [address] | | | | + + + + + + | Absolute | 0.07Comment: Testing | 0.00 - 0.10 | EXTERNAL | | | Basophils | performed at [facility], [address] | K/uL | LAB | | | | [address], | | | | | | [place] [address] | | | | + + + + + + | RBC | 2+Comment: ANISONORMAL | | EXTERNAL | | | Morphology | PLT MORPHTesting | | LAB | | | | performed at [facility], [address] | | | | | | [address] [facility], | | | | | | [place] [address] | | | | | | | [...] | | | | | [place] [address] | | | | + + + [...] [place] | | | | | | [address] | | | | + + + [...] | | | | | [place] [address] | | | | + + + + + + | Anion Gap | 12Comment: Testing | 5 - 20 mmol/L | EXTERNAL | | | | performed at [facility], [address] | | LAB | | | | [address], | | | | | | [place] [address] | | | | + + + + + + | Glucose, | 83Comment: Testing | 65 - 99 mg/dL | EXTERNAL | | | Fasting | performed at [facility], [address] | | LAB | | | | [address], | | | | | | [place] [address] | | | | + + + + + + | BUN | 8Comment: Testing | 8 - 25 mg/dL | EXTERNAL | | | | performed at [facility], [address] | | LAB | | | | [address], | | | | | | [place] [address] | | | | + + + + + + | Creatinine | 0.52Comment: Testing | 0.50 - 1.00 | EXTERNAL | | | | performed at [facility], [address] | mg/dL | LAB | | | | [address], | | | | | | [place] [address] | | | | + + + + + + | BUN/Creatin | 15Comment: Testing | | EXTERNAL | | | ine Ratio | performed at [facility], [address] | | LAB | | | [address], | | | | | | [place] [address] | | | | + + + + + + | Calcium | 8.6Comment: Testing | 8.5 - 10.5 | EXTERNAL | | | | performed at [facility], [address] | mg/dL | LAB | | | | [address], | | | | | | [place] [address] | | | | + + + + + + | Protein, | 5.8 (L)Comment: Testing | 6.3 - 8.2 g/dL | EXTERNAL | | | Total | performed at [facility], [address] | | LAB | | | | [address], | | | | | | [place] [address] | | | | + + + + + + | Albumin | 2.9 (L)Comment: Testing | 3.6 - 5.0 g/dL | EXTERNAL | | | | performed at [facility], [address] | | LAB | | | | [address], | | | | | | [place] [address] | | | | + + + + + + | Globulin | 2.9Comment: Testing | 1.3 - 4.9 g/dL | EXTERNAL | | | | performed at [facility], [address] | | LAB | | | | [address] [place], | | | | | | [place] [address] | | | | + + + + + + | A/G Ratio | 1.0Comment: Testing | 1.0 - 2.4 | EXTERNAL | | | | performed at [facility], [address] | | LAB | | | | [address], | | | | | | [place] [address] | | | | + + + + + + | Bilirubin | 0.7Comment: Testing | 0.1 - 1.5 mg/dL | EXTERNAL | | | Total | performed at [facility], [address] | | LAB | | | | [address], | | | | | | [place] [address] | | | | + + + + + + | ALP, | 169 (H)Comment: Testing | 35 - 115 U/L | EXTERNAL | | | External | performed at [facility], [address] | | LAB | | | | [address], | | | | | | [place] [address] | | | | + + + + + + | AST | 16Comment: Testing | 10 - 45 U/L | EXTERNAL | | | | performed at [facility], [address] | | LAB | | | | [address], | | | | | | [place] [address] | | | | + + + + + + | ALT | 17Comment: Testing | 10 - 65 U/L | EXTERNAL | | | | performed at [facility], [address] | | LAB | | | | [address], | | | | | | [place] [address] | | | | + + + [...] [address], | | | | | | [place] [address] | | | | + + + [...] | | | Total | performed at [facility], [address] | | LAB | | | | [address], | | | | | | [place] [address] | | | | + + + [...] Conversion - 11/24/2018 6:38 AM PDT [facility] | | HEAD11/07/2014 [...] | | | | performed at [facility] | | | | | | [address];[place], [place] | | | | | | [address] | | | | + + + [...] K/uL | LAB | | | | [facility], [address] [facility] | | | | | | [place] | | | | | | [address] | | | | + + + + + + | Non- | 4.28Comment: Testing | 3.70 - 5.10 | EXTERNAL | | | Red Blood | performed at [facility], [address] | M/uL | LAB | | | Cells | [address] [place], | | | | | Counted | [place] [address] | | | | + + + + + + | Hemoglobin | 13.0Comment: Testing | 11.3 - 15.5 | EXTERNAL | | | | performed at [facility], [address] | g/dL | LAB | | | | [address] [place], | | | | | | [place] [address] | | | | + + + + + + | Hematocrit, | 40.0Comment: Testing | 34.0 - 46.0 % | EXTERNAL | | | POC | performed at [facility], [address] | | LAB | | | | [address], | | | | | | [place] [address] | | | | + + + + + + | MCV | 93.4Comment: Testing | 80.0 - 100.0 fl | EXTERNAL | | | | performed at [facility], [address] | | LAB | | | | [address], | | | | | | [place] [address] | | | | + + + + + + | MCH | 30.3Comment: Testing | 27.0 - 34.0 pg | EXTERNAL | | | | performed at [facility], [address] | | LAB | | | | [address], | | | | | | [place] [address] | | | | + + + + + + | MCHC | 32.5Comment: Testing | 32.0 - 35.5 | EXTERNAL | | | | performed at [facility], [address] | g/dL | LAB | | | | [address], | | | | | | [place] [address] | | | | + + + + + + | RDW-CV | 57.8 (H)Comment: Testing | 37 - 53 fl | EXTERNAL | | | | performed at [facility], [address] | | LAB | | | | [address], | | | | | | [place] [address] | | | | + + + + + + | Platelet | 403 (H)Comment: Testing | 150 - 400 K/uL | EXTERNAL | | | Count | performed at [facility], [address] | | LAB | | | Plasma | [address], | | | | | | [place] [address] | | | | + + + + + + | MPV | 8.4Comment: Testing | fl | EXTERNAL | | | | performed at [facility], [address] | | LAB | | | | [address], | | | | | | [place] [address] | | | | + + + + + + | Differentia | AUTOMATEDComment: | | EXTERNAL | | | l Type | Testing performed at | | LAB | | | | [facility], [address] | | | | | | [place] | | | | | | [address] | | | | + + + + + + | % Segmented | 69.85Comment: Testing | % | EXTERNAL | | | | performed at [facility], [address] | | LAB | | | Neutrophils | [address], | | | | | | [place] [address] | | | | + + + + + + | % | 17.96Comment: Testing | % | EXTERNAL | | | Lymphocytes | performed at [facility], [address] | | LAB | | | | [address], | | | | | | [place] [address] | | | | + + + + + + | % Monocytes | 11.10Comment: Testing | % | EXTERNAL | | | | performed at [facility], [address] | | LAB | | | | [address], | | | | | | [place] [address] | | | | + + + + + + | % | 0.77Comment: Testing | % | EXTERNAL | | | Eosinophils | performed at [facility], [address] | | LAB | | | | [address] [place], | | | | | | [place] [address] | | | | + + + + + + | % Basophils | 0.32Comment: Testing | % | EXTERNAL | | | | performed at [facility], [address] | | LAB | | | | [address] [place], | | | | | | [place] [address] | | | | + + + + + + | Absolute | 10.28 (H)Comment: | 1.90 - 7.40 | EXTERNAL | | | Segmented | Testing performed at | K/uL | LAB | | | Neutrophils | [facility], [address] | | | | | | [place] | | | | | | [address] | | | | + + + + + + | Absolute | 2.64Comment: Testing | 1.00 - 3.90 | EXTERNAL | | | Lymphocytes | performed at [facility], [address] | K/uL | LAB | | | | [address] [place], | | | | | | [place] [address] | | | | + + + + + + | Absolute | 1.63 (H)Comment: Testing | 0.00 - 0.80 | EXTERNAL | | | Monocytes | performed at [facility], [address] | [address]/uL | LAB | | | | [address], | | | | | | [place] [address] | | | | + + + + + + | Absolute | 0.11Comment: Testing | 0.00 - 0.50 | EXTERNAL | | | Eosinophils | performed at [facility], [address] | K/uL | LAB | | | | [address], | | | | | | [place] [address] | | | | + + + + + + | Absolute | 0.05Comment: Testing | 0.00 - 0.10 | EXTERNAL | | | Basophils | performed at [facility], [address] | K/uL | LAB | | | | [address] [place], | | | | | | [place] [address] | | | | + + + [...] | | | | | [place] [address] | | | | + + + + + + | K | 3.1 (L)Comment: Testing | 3.5 - 4.9 | EXTERNAL | | | | performed at [facility], [address] | mmol/L | LAB | | | | [address] [place], | | | | | | [place] [address] | | | | + + + + + + | Cl | 96 (L)Comment: Testing | 99 - 109 mmol/L | EXTERNAL | | | | performed at [facility], [address] | | LAB | | | | [address], | | | | | | [place] [address] | | | | + + + + + + | CO2 | 24Comment: Testing | 23 - 32 mmol/L | EXTERNAL | | | | performed at [facility], [address] | | LAB | | | | [address], | | | | | | [place] [address] | | | | + + + + + + | Anion Gap | 11Comment: Testing | 5 - 20 mmol/L | EXTERNAL | | | | performed at [facility], [address] | | LAB | | | | [address], | | | | | | [place] [address] | | | | + + + + + + | Glucose, | 102 (H)Comment: Testing | 65 - 99 mg/dL | EXTERNAL | | | Fasting | performed at [facility], [address] | | LAB | | | | [address], | | | | | | [place] [address] | | | | + + + + + + | BUN | 6 (L)Comment: Testing | 8 - 25 mg/dL | EXTERNAL | | | | performed at [facility], [address] | | LAB | | | | [address], | | | | | | [place] [address] | | | | + + + + + + | Creatinine | 0.49 (L)Comment: Testing | 0.50 - 1.00 | EXTERNAL | | | | performed at [facility], [address] | mg/dL | LAB | | | | [address], | | | | | | [place] [address] | | | | + + + + + + | BUN/Creatin | 12Comment: Testing | | EXTERNAL | | | ine Ratio | performed at [facility], [address] | | LAB | | | [address], | | | | | | [place] [address] | | | | + + + + + + | Calcium | 8.5Comment: Testing | 8.5 - 10.5 | EXTERNAL | | | | performed at [facility], [address] | mg/dL | LAB | | | | [address] [place], | | | | | | [place] [address] | | | | + + + + + + | Protein, | 6.1 (L)Comment: Testing | 6.3 - 8.2 g/dL | EXTERNAL | | | Total | performed at [facility], [address] | | LAB | | | [address], | | | | | | [place] [address] | | | | + + + + + + | Albumin | 3.0 (L)Comment: Testing | 3.6 - 5.0 g/dL | EXTERNAL | | | | performed at [facility], [address] | | LAB | | | [address], | | | | | | [place] [address] | | | | + + + + + + | Globulin | 3.1Comment: Testing | 1.3 - 4.9 g/dL | EXTERNAL | | | | performed at [facility], [address] | | LAB | | | | [address], | | | | | | [place] [address] | | | | + + + + + + | A/G Ratio | 1.0Comment: Testing | 1.0 - 2.4 | EXTERNAL | | | | performed at [facility], [address] | | LAB | | | | [address], | | | | | | [place] [address] | | | | + + + + + + | Bilirubin | 0.7Comment: Testing | 0.1 - 1.5 mg/dL | EXTERNAL | | | Total | performed at [facility], [address] | | LAB | | | | [address], | | | | | | [place] [address] | | | | + + + + + + | ALP, | 208 (H)Comment: Testing | 35 - 115 U/L | EXTERNAL | | | External | performed at [facility], [address] | | LAB | | | | [address], | | | | | | [place] [address] | | | | + + + + + + | AST | 21Comment: Testing | 10 - 45 U/L | EXTERNAL | | | | performed at [facility], [address] | | LAB | | | | [address], | | | | | | [place] [address] | | | | + + + + + + | ALT | 21Comment: Testing | 10 - 65 U/L | EXTERNAL | | | | performed at [facility], [address] | | LAB | | | [address], | | | | | | [place] [address] | | | | + + + [...] | | | | | | [place] [address] | | | | + + + [...] | Testing performed | | | at [facility], [address] [place] [address] | | + + + + +---------+ [...] | | | | performed at [facility];[address] | | | | | | [address];[place] | | | | | | [address] | | | | + + + + + + | CRYPTO AG | Comment: ACCESSION NO. | | EXTERNAL | | | CSF | | | LAB | | | | [id number] | | | | | | SOURCE | | | | | | CEREBROSPINAL | | | | | | FLUIDRESULT | | | | | | | | | | | | NEGATIVETesting | | | | | | performed at [facility] | | | | | | [facility], | | | | | | [address] | | | | | | [address] | | | | + + + + + + | CRYPTOCOCCU | REPORT STATUS | | EXTERNAL | | | S AG, CSF | FINAL | | LAB | | | | 11/08/2014Comment: | | | | | | Testing performed at | | | | | | [facility] | | | | | | [place], [address], | | | | | | [place] [address] | | | | + + + [...] | EXTERNAL LAB | | performed at [facility];[address] [place] [id number] [id number] NAP1 BI | | | 027 NAP1 BI PRESUMPTIVE NEGATIVE | | | Detection of 027 NAP1 BI strains of C. difficile is presumptive and | | | for epidemiological purposes and not intended to guide or monitor | | | treatment for C. difficile infections. Testing performed at [facility];[address] | | | [facility];[place] [address] | | + + + + +---------+ [...] TESTING. | | | Testing performed at [facility], [address] | | | [place] [address] | | + + + + +---------+ [...] EXTERNAL LAB | | Testing performed at [facility];[address] [place] [address];[place] [id number] RESULT | | | NEGATIVE Reference range: [...] MICROLITER OF PATIENT SPECIMEN. Testing performed at [facility], | | | [address] [place] [address] COMMENT | | | SEE BELOW THIS TEST WAS DEVELOPED AND ITS | | | PERFORMANCE CHARACTERISTICS DETERMINED BY [facility]. THE [place] [employer] | [...] OR PATIENT MANAGEMENT | | | DECISIONS. [facility] IS AUTHORIZED UNDER CLINICAL LABORATORY IMPROVEMENT | | | AMENDMENTS (CLIA) TO PERFORM HIGH-COMPLEXITY TESTING. Testing | | | performed at [place] [address] | | + + + + +---------+ [...] | Testing performed at | | | [facility];[address] [facility];[place] [address] CULTURE | | | NO GROWTH | | | Testing performed at [facility], [address] [facility], | | | [place] [address] | | + + + + +---------+ [...] EXTERNAL LAB | | Testing performed at [facility];[address] [place] [address];[place] [address] ENTEROVIRUS | | | PCR NEGATIVE INTENDED USE: THE | | | [employer] XPERT EV ASSAY IS A REVERSE FUND ACCOUNTING MANAGER POLYMERASE CHAIN | | | REACTION (RT-PCR) USING THE ThinkLinkERT DX SYSTEM FOR THE | | | [...] RT-PCR Testing | | | performed at [facility], [address] [place] [address] | | + + + + +---------+ [...] EXTERNAL LAB | | Testing performed at [facility];[address] [place] [address];[place] [address] SOURCE | | | SEE BELOW CEREBROSPINAL FLUID | | | Testing performed by [facility] [address] HSV DNA Type 1 | | | NOT DETECTED Testing performed at [facility], [address] | | | [facility] [address] HSV DNA Type 2 | | | NOT DETECTED Testing performed at [facility], [address] [facility], | | | [facility] [address] COMMENT | | | SEE BELOW A [...] THE DIAGNOSIS OF DISEASE. Testing performed at [facility], [address] | | | [address] [facility] [address] COMMENT | | | SEE BELOW THIS TEST WAS DEVELOPED AND ITS | | | PERFORMANCE CHARACTERISTICS DETERMINED BY [facility]. THE [place] [employer] AND | [...] OR PATIENT MANAGEMENT | | | DECISIONS. [facility] IS AUTHORIZED UNDER CLINICAL LABORATORY IMPROVEMENT | | | AMENDMENTS (CLIA) TO PERFORM HIGH-COMPLEXITY TESTING. Testing | | | performed at [facility], [address] [facility] [address] | | + + + + +---------+ [...] EXTERNAL LAB | | Testing performed at [facility];[address] [place] [address];[place] [address] APPEARANCE | | | CLEAR Testing performed at | | | [facility];[address];[place] [address] Tube Number, CSF | | | 3 Testing performed at [facility];[address];[place] [address] CSF RBC | | | 7 High Testing performed at [facility];[address];[place] [address] CSF WBC | | | 2 Testing performed at [facility];[place], [place] | | | [address] | | + + + + +---------+ [...] | EXTERNAL LAB | | performed at [place] [id number] | | + + + + +---------+ [...] EXTERNAL LAB | | Testing performed at [facility];[address] [place] [address];[place] [address] | | + + + + +---------+ [...] EXTERNAL LAB | | Testing performed at [facility];[address] [place] [address];[place] [address] | | + + + + +---------+ [...] | | | | performed at [facility];[address] | | | | | | [address];[place], [place] | | | | | | [address] | | | | + + + [...] | | | | | DETERMINED BY [facility] | | | | | | LABORATORIES.SEE | | | | | | COMPLIANCE STATEMENT B: | | | | | | BioStratum/CSTesting | | | | | | performed at [facility], [address] | | | | | | [facility] | | | | | | [facility] [address] | | | | + + + [...] LAB | | | | performed at [facility] | | | | | | [place], [address] | | | | | [address], [place] | | | | | | [address] | | | | + + + [...] | | | | | performed at [facility] | | | | | | [place], [address] | | | | | | [facility] [place] | | | | | | [address] | | | | + + + [...] mental status, | | | [facility]. PRE | [...] | | | possibility of "sound alike" binding stitcher errors, addition and/or | | | deletions [...] altered mental | | status, transferred from [facility] on November 05, 2014. PRE PROCEDURAL [...] The possibility of "sound alike" | | binding stitcher errors, addition and/or deletions may occur. If [...] system. The possibility of "sound a like" binding stitcher errors, addition and/or deletions may occur. If [...] Testing | | | performed at [facility], [address] [place] [address] | | | [place] [address] | | + + + + +---------+ [...] TEST | | | | | | DIRECTORY([employer]).T | | | | | | esting performed at | | | | | | [facility], [address], | | | | | | [facility] [address] | | | | + + + + + + | IGG, CSF | 5.1Comment: Testing | 0.0 - 6.0 mg/dL | EXTERNAL | | | | performed at [facility], [address] | | LAB | | | | [address] [facility] | | | | | | [facility] [address] | | | | + + + + + + | Albumin, | 32Comment: Testing | 0 - 35 mg/dL | EXTERNAL | | | CSF | performed at [facility], [address] | | LAB | | | | [address] [facility] | | | | | | [facility] [address] | | | | + + + + + + | Albumin | 11.7 (H)Comment: Testing | 0.0 - 9.0 ratio | EXTERNAL | | | Index | performed at [facility], [address] | | LAB | | | | [address] [facility] | | | | | | [facility] [address] | | | | + + + + + + | CSF | 0.16Comment: Testing | 0.09 - 0.25 | EXTERNAL | | | IgG/Albumin | performed at [facility], [address] | ratio | LAB | | | Ratio | [address] [facility] | | | | | | [facility] [address] | | | | + + + + + + | IgG Index | 0.46Comment: Testing | 0.28 - 0.66 | EXTERNAL | | | | performed at [facility], [address] | ratio | LAB | | | | [address] [facility] | | | | | | [facility] [address] | | | | + + + + + + | CSF | NEGATIVEComment: | | EXTERNAL | | | Oligoclonal | REFERENCE RANGE: | | LAB | | | Bands | NEGATIVETesting | | | | | | performed at [facility], [address] | | | | | | Jarett Card, [facility] | | | | | | [facility] [address] | | | | + + + [...] | | | | | [facility] | | | | | | [facility] [address] | | | | + + + + + + | IGG SYNTH | <0.0 (L)Comment: | 0.0 - 8.0 mg/d | EXTERNAL | | | RATE | REFERENCE RANGE: | | LAB | | | | <=8.0Testing performed | | | | | | at [facility], [address] | | | | | | [facility], [place] | | | | | | [address] | | | | + + + + + + | Albumin | 2,730 (L)Comment: | 3,500 - 5,200 | EXTERNAL | | | | Testing performed at | mg/dL | LAB | | | | [facility], [address] [facility], | | | | | | [place] [address] | | | | + + + [...] | Testing performed | | | at [facility], [address] [place] [address] | | + + + + +---------+ [...] GROWTH | | | Testing performed at [facility], | | | [address] [place] [address] | | + + + + +---------+ [...] | | | | | [place] [address] | | | | + + + + + + | Clarity, | CLEARComment: Testing | | EXTERNAL | | | Urine | performed at [facility], [address] | | LAB | | | | [address], | | | | | | [place] [address] | | | | + + + + + + | Specific | 1.014Comment: Testing | 1.002 - 1.030 | EXTERNAL | | | Lizella, | performed at [facility], [address] | | LAB | | | Urine | [address], | | | | | | [place] [address] | | | | + + + + + + | Leukocyte | TRACE (A)Comment: | | EXTERNAL | | | Esterase, | Testing performed at | | LAB | | | Urine | [facility], [address] | | | | | | [place] | | | | | | [address] | | | | + + + + + + | Nitrite, | NEGATIVEComment: Testing | | EXTERNAL | | | Urine | performed at [facility], [address] | | LAB | | | | [address], | | | | | | [place] [address] | | | | + + + + + + | Urobilinoge | 0.2Comment: Testing | mg/dL | EXTERNAL | | | n, Urine | performed at [facility], [address] | | LAB | | | | [address], | | | | | | [place] [address] | | | | + + + + + + | Protein, | NEGATIVEComment: Testing | mg/dL | EXTERNAL | | | Urine | performed at [facility], [address] | | LAB | | | | [address], | | | | | | [place] [address] | | | | + + + + + + | pH, Urine | 7.0Comment: Testing | 5.0 - 8.0 | EXTERNAL | | | | performed at [facility], [address] | | LAB | | | | [address], | | | | | | [place] [address] | | | | + + + + + + | Blood, | SMALL (A)Comment: | | EXTERNAL | | | Urine | Testing performed at | | LAB | | | | [facility], [address] [facility] | | | | | | [place] | | | | | | [address] | | | | + + + + + + | Ketones | NEGATIVEComment: Testing | mg/dL | EXTERNAL | | | | performed at [facility], [address] | | LAB | | | | [address], | | | | | | [place] [address] | | | | + + + + + + | Bilirubin, | NEGATIVEComment: Testing | | EXTERNAL | | | Urine | performed at [facility], [address] | | LAB | | | | [address], | | | | | | [place] [address] | | | | + + + + + + | Glucose, | NEGATIVEComment: Testing | mg/dL | EXTERNAL | | | Urine | performed at [facility], [address] | | LAB | | | | [address], | | | | | | [place] [address] | | | | + + + + + + | WBC, UA | 16-25Comment: Testing | 0 - 5 /hpf | EXTERNAL | | | | performed at [facility], [address] | | LAB | | | | [address], | | | | | | [place] [address] | | | | + + + + + + | RBC, UA | 6-10Comment: Testing | 0 - 5 /hpf | EXTERNAL | | | | performed at [facility], [address] | | LAB | | | | [address], | | | | | | [place] [address] | | | | + + + + + + | Bacteria, | NONE SEENComment: | | EXTERNAL | | | UA | CULTURE TO FOLLOWTesting | | LAB | | | | performed at [facility], [address] | | | | | | [address], | | | | | | [place] [address] | | | | + + + + + + | Epithelial | 26-50Comment: Testing | /lpf | EXTERNAL | | | Cells | performed at [facility], [address] | | LAB | | | | [address], | | | | | | [place] [address] | | | | + + + + + + | HYALINE | 0-2Comment: Testing | | EXTERNAL | | | CASTS UA | performed at [facility], [address] | | LAB | | | | [address], | | | | | | [place] [address] | | | | + + + [...] SPECIAL | EXTERNAL LAB | | [facility] | | Testing performed at [facility];[address];[place] [address] CULTURE | | | NO GROWTH | | | Testing performed at [facility], [address] [place], [place] | | | [address] | | + + + + +---------+ [...] LAC | | | Testing performed at [facility];[address] | | | [facility];[place] [address] CULTURE | | | NO GROWTH | | | Testing performed at [facility], [address] [facility], [place], [place] | | | [address] | | + + + + +---------+ [...] | | | | performed at [facility];[address] | | | | | | [facility];[place], [place] | | | | | | [address] | | | | + + + [...] | | | | [facility], [address] [facility] | | | | | | [place] | | | | | | [address] | | | | + + + + + + | Non- | 4.38Comment: Testing | 3.70 - 5.10 | EXTERNAL | | | Red Blood | performed at [facility], [address] | M/uL | LAB | | | Cells | [address], | | | | | Counted | [place] [address] | | | | + + + + + + | Hemoglobin | 13.1Comment: Testing | 11.3 - 15.5 | EXTERNAL | | | | performed at [facility], [address] | g/dL | LAB | | | | [address], | | | | | | [place] [address] | | | | + + + + + + | Hematocrit, | 41.2Comment: Testing | 34.0 - 46.0 % | EXTERNAL | | | POC | performed at [facility], [address] | | LAB | | | | [address], | | | | | | [place] [address] | | | | + + + + + + | MCV | 94.0Comment: Testing | 80.0 - 100.0 fl | EXTERNAL | | | | performed at [facility], [address] | | LAB | | | | [address], | | | | | | [place] [address] | | | | + + + + + + | MCH | 29.9Comment: Testing | 27.0 - 34.0 pg | EXTERNAL | | | | performed at [facility], [address] | | LAB | | | [address], | | | | | | [place] [address] | | | | + + + + + + | MCHC | 31.8 (L)Comment: Testing | 32.0 - 35.5 | EXTERNAL | | | | performed at [facility], [address] | g/dL | LAB | | | | [address], | | | | | | [place] [address] | | | | + + + + + + | RDW-CV | 59.5 (H)Comment: Testing | 37 - 53 fl | EXTERNAL | | | | performed at [facility], [address] | | LAB | | | | [address], | | | | | | [place] [address] | | | | + + + + + + | Platelet | 436 (H)Comment: Testing | 150 - 400 K/uL | EXTERNAL | | | Count | performed at [facility], [address] | | LAB | | | Plasma | [address], | | | | | | [place] [address] | | | | + + + + + + | MPV | 8.2Comment: Testing | fl | EXTERNAL | | | | performed at [facility], [address] | | LAB | | | | [address], | | | | | | [place], [place] [address] | | | | + + + + + + | Differentia | MANUALComment: Testing | | EXTERNAL | | | l Type | performed at [facility], [address] | | LAB | | | | [address], | | | | | | [place], [place] [address] | | | | + + + + + + | Segmented | 69Comment: Testing | % | EXTERNAL | | | Neutrophils | performed at [facility], [address] | | LAB | | | Manual | [address], | | | | | | [place], [place] [address] | | | | + + + + + + | Lymphocytes | 17Comment: Testing | % | EXTERNAL | | | Manual | performed at [facility], [address] | | LAB | | | | [address], | | | | | | [place] [address] | | | | + + + + + + | Monocytes | 14Comment: Testing | % | EXTERNAL | | | Manual | performed at [facility], [address] | | LAB | | | | [address], | | | | | | [place] [address] | | | | + + + + + + | Absolute | 17.00 (H)Comment: | 1.90 - 7.40 | EXTERNAL | | | Neutrophils | Testing performed at | K/uL | LAB | | | | [facility], [address] | | | | | | [place] | | | | | | [address] | | | | + + + + + + | Absolute | 4.19 (H)Comment: Testing | 1.00 - 3.90 | EXTERNAL | | | Lymphocytes | performed at [facility], [address] | K/uL | LAB | | | | [address], | | | | | | [place] [address] | | | | + + + + + + | Absolute | 3.45 (H)Comment: Testing | 0.00 - 0.80 | EXTERNAL | | | Monocytes | performed at [facility], [address] | K/uL | LAB | | | | [address], | | | | | | [place] [address] | | | | + + + + + + | RBC | 2+Comment: ANISONORMAL | | EXTERNAL | | | Morphology | PLT MORPHTesting | | LAB | | | | performed at [facility], [address] | | | | [address], | | | | | | [place] [address] | | | | | | | [...] | | | | | [place] [address] | | | | + + + [...] | | | | | | [place] [address] | | | | + + + [...] | | | | | [place] [address] | | | | + + + + + + | K | 3.5Comment: Testing | 3.5 - 4.9 | EXTERNAL | | | | performed at [facility], [address] | mmol/L | LAB | | | | [address], | | | | | | [place] [address] | | | | + + + + + + | Cl | 95 (L)Comment: Testing | 99 - 109 mmol/L | EXTERNAL | | | | performed at [facility], [address] | | LAB | | | | [address], | | | | | | [place] [address] | | | | + + + + + + | CO2 | 25Comment: Testing | 23 - 32 mmol/L | EXTERNAL | | | | performed at [facility], [address] | | LAB | | | | [address], | | | | | | [place] [address] | | | | + + + + + + | Anion Gap | 12Comment: Testing | 5 - 20 mmol/L | EXTERNAL | | | | performed at [facility], [address] | | LAB | | | | [address], | | | | | | [place] [address] | | | | + + + + + + | Glucose, | 120 (H)Comment: Testing | 65 - 99 mg/dL | EXTERNAL | | | Fasting | performed at [facility], [address] | | LAB | | | | [address], | | | | | | [place] [address] | | | | + + + + + + | BUN | 8Comment: Testing | 8 - 25 mg/dL | EXTERNAL | | | | performed at [facility], [address] | | LAB | | | | [address], | | | | | | [place] [address] | | | | + + + + + + | Creatinine | 0.45 (L)Comment: Testing | 0.50 - 1.00 | EXTERNAL | | | | performed at [facility], [address] | mg/dL | LAB | | | | [address], | | | | | | [place] [address] | | | | + + + + + + | BUN/Creatin | 18Comment: Testing | | EXTERNAL | | | ine Ratio | performed at [facility], [address] | | LAB | | | | [address], | | | | | | [place] [address] | | | | + + + + + + | Calcium | 8.7Comment: Testing | 8.5 - 10.5 | EXTERNAL | | | | performed at [facility], [address] | mg/dL | LAB | | | | [address], | | | | | | [place] [address] | | | | + + + + + + | Protein, | 6.8Comment: Testing | 6.3 - 8.2 g/dL | EXTERNAL | | | Total | performed at [facility], [address] | | LAB | | | | [address], | | | | | | [place] [address] | | | | + + + + + + | Albumin | 3.1 (L)Comment: Testing | 3.6 - 5.0 g/dL | EXTERNAL | | | | performed at [facility], [address] | | LAB | | | | [address], | | | | | | [place] [address] | | | | + + + + + + | Globulin | 3.7Comment: Testing | 1.3 - 4.9 g/dL | EXTERNAL | | | | performed at [facility], [address] | | LAB | | | | [address], | | | | | | [place] [address] | | | | + + + + + + | A/G Ratio | 0.8 (L)Comment: Testing | 1.0 - 2.4 | EXTERNAL | | | | performed at [facility], [address] | | LAB | | | | [address], | | | | | | [place] [address] | | | | + + + + + + | Bilirubin | 0.8Comment: Testing | 0.1 - 1.5 mg/dL | EXTERNAL | | | Total | performed at [facility], [address] | | LAB | | | | [address], | | | | | | [place] [address] | | | | + + + + + + | ALP, | 214 (H)Comment: Testing | 35 - 115 U/L | EXTERNAL | | | External | performed at [facility], [address] | | LAB | | | | [address], | | | | | | [place] [address] | | | | + + + + + + | AST | 26Comment: Testing | 10 - 45 U/L | EXTERNAL | | | | performed at [facility], [address] | | LAB | | | | [address], | | | | | | [place] [address] | | | | + + + + + + | ALT | 29Comment: Testing | 10 - 65 U/L | EXTERNAL | | | | performed at [facility], [address] | | LAB | | | | [address], | | | | | | [place] [address] | | | | + + + [...] | | | | | [place] [address] | | | | + + + [...] K/uL | LAB | | | | [facility];[address] | | [address];[place] [address] | | | | + + + + + -+ | Non- | 4.36Comment: Testing | 3.70 - 5.10 | EXTERNAL | | | Red Blood | performed at [facility];[address] | M/uL | LAB | | | Cells | [address];[place] | | | | | Counted | [address] | | | | + + + + + -+ | Hemoglobin | 13.1Comment: Testing | 11.3 - 15.5 | EXTERNAL | | | | performed at [facility];[address] | g/dL | LAB | | | | [address];[place] | | | | | | [address] | | | | + + + + + -+ | Hematocrit, | 40.2Comment: Testing | 34.0 - 46.0 % | EXTERNAL | | | POC | performed at [facility];[address] | | LAB | | | | [address];[place] | | | | | | [address] | | | | + + + + + -+ | MCV | 92.3Comment: Testing | 80.0 - 100.0 fl | EXTERNAL | | | | performed at [facility];[address] | | LAB | | | | [address];[place] | | | | | | [address] | | | | + + + + + -+ | MCH | 30.2Comment: Testing | 27.0 - 34.0 pg | EXTERNAL | | | | performed at [facility];[address] | | LAB | | | | [address];[place] | | | | | | [address] | | | | + + + + + -+ | MCHC | 32.7Comment: Testing | 32.0 - 35.5 | EXTERNAL | | | | performed at [facility];[address] | g/dL | LAB | | | | [address];[place] | | | | | | [address] | | | | + + + + + -+ | RDW-CV | 59.5 (H)Comment: Testing | 37 - 53 fl | EXTERNAL | | | | performed at [facility];[address] | | LAB | | | | [address];[place] | | | | | | [address] | | | | + + + + + -+ | Platelet | 424 (H)Comment: Testing | 150 - 400 K/uL | EXTERNAL | | | Count | performed at [facility];[address] | | LAB | | | Plasma | [address];[place] | | | | | | [address] | | | | + + + + + -+ | MPV | 7.3Comment: Testing | fl | EXTERNAL | | | | performed at [facility];[address] | | LAB | | | | [address];[place] | | | | | | [address] | | | | + + + + + -+ | Differentia | AUTOMATEDComment: | | EXTERNAL | | | l Type | Testing performed at | | LAB | | | | [facility];[address];[place] [address] | | | | + + + + + -+ | % Segmented | 69.52Comment: Testing | % | EXTERNAL | | | | performed at [facility];[address] | | LAB | | | Neutrophils | [address];[place] | | | | | | [address] | | | | + + + + + -+ | % | 17.38Comment: Testing | % | EXTERNAL | | | Lymphocytes | performed at [facility];[address] | | LAB | | | | [address];[place] | | | | | | [address] | | | | + + + + + -+ | % Monocytes | 11.50Comment: Testing | % | EXTERNAL | | | | performed at [facility];[address] | | LAB | | | | [address];[place] | | | | | | [address] | | | | + + + + + -+ | % | 0.84Comment: Testing | % | EXTERNAL | | | Eosinophils | performed at [facility];[address] | | LAB | | | | [address];[place] | | | | | | [address] | | | | + + + + + -+ | % Basophils | 0.76Comment: Testing | % | EXTERNAL | | | | performed at [facility];[address] | | LAB | | | | [address];[place] | | | | | | [address] | | | | + + + + + -+ | Absolute | 17.37 (H)Comment: | 1.90 - 7.40 | EXTERNAL | | | Segmented | Testing performed at | K/uL | LAB | | | Neutrophils | [facility];[address];[place] [address] | | | | + + + + + -+ | Absolute | 4.34 (H)Comment: Testing | 1.00 - 3.90 | EXTERNAL | | | Lymphocytes | performed at [facility];[address] | K/uL | LAB | | | | [address];[place] | | | | | | [address] | | | | + + + + + -+ | Absolute | 2.87 (H)Comment: Testing | 0.00 - 0.80 | EXTERNAL | | | Monocytes | performed at [facility];[address] | K/uL | LAB | | | | [address];[place] | | | | | | [address] | | | | + + + + + -+ | Absolute | 0.21Comment: Testing | 0.00 - 0.50 | EXTERNAL | | | Eosinophils | performed at [facility];[address] | K/uL | LAB | | | | [address];[place] | | | | | | [address] | | | | + + + + + -+ | Absolute | 0.19 (H)Comment: Testing | 0.00 - 0.10 | EXTERNAL | | | Basophils | performed at [facility];[address] | K/uL | LAB | | | | [address];[place] | | | | | | [address] | | | | + + + + + -+ | RBC | 1+Comment: ANISONORMAL | | EXTERNAL | | | Morphology | PLT MORPHTesting | | LAB | | | | performed at [facility];[address] | | | | | | [address];[place] | | | | | | [address] | | | | | | | | | | + + + + + -+ | Na | 133 (L)Comment: Testing | 135 - 143 | EXTERNAL | | | | performed at [facility];[address] | mmol/L | LAB | | | | [address];[place] | | | | | | [address] | | | | + + + + + -+ | K | 3.6Comment: Testing | 3.5 - 4.9 | EXTERNAL | | | | performed at [facility];[address] | mmol/L | LAB | | | | [address];[place] | | | | | | [address] | | | | + + + + + -+ | Cl | 95 (L)Comment: Testing | 99 - 109 mmol/L | EXTERNAL | | | | performed at [facility];[address] | | LAB | | | | [address];[place] | | | | | | [address] | | | | + + + + + -+ | CO2 | 28Comment: Testing | 23 - 32 mmol/L | EXTERNAL | | | | performed at [facility];[address] | | LAB | | | | [address];[place] | | | | | | [address] | | | | + + + + + -+ | Anion Gap | 13Comment: Testing | 5 - 20 mmol/L | EXTERNAL | | | | performed at [facility];[address] | | LAB | | | | [address];[place] | | | | | | [address] | | | | + + + + + -+ | Glucose, | 123 (H)Comment: Testing | 65 - 99 mg/dL | EXTERNAL | | | Fasting | performed at [facility];[address] | | LAB | | | | [address];[place] | | | | | | [address] | | | | + + + + + -+ | BUN | 7 (L)Comment: Testing | 8 - 25 mg/dL | EXTERNAL | | | | performed at [facility];[address] | | LAB | | | | [address];[place] | | | | | | [address] | | | | + + + + + -+ | Creatinine | 0.76Comment: Testing | 0.50 - 1.00 | EXTERNAL | | | | performed at [facility];[address] | mg/dL | LAB | | | | [address];[place] | | | | | | [address] | | | | + + + + + -+ | BUN/Creatin | 10Comment: Testing | | EXTERNAL | | | ine Ratio | performed at [facility];[address] | | LAB | | | | [address];[place] | | | | | | [address] | | | | + + + + + -+ | Calcium | 8.2 (L)Comment: Testing | 8.5 - 10.5 | EXTERNAL | | | | performed at [facility];888 | mg/dL | LAB | | | | [address];[place] | | | | | | [address] | | | | + + + + + -+ | Protein, | 6.6Comment: Testing | 6.3 - 8.2 g/dL | EXTERNAL | | | Total | performed at [facility];[address] | | LAB | | | | [address];[place] | | | | | | [address] | | | | + + + + + -+ | Albumin | 2.7 (L)Comment: Testing | 3.6 - 5.0 g/dL | EXTERNAL | | | | performed at [facility];[address] | | LAB | | | | [address];[place] | | | | | | [address] | | | | + + + + + -+ | Globulin | 4.0Comment: Testing | 1.3 - 4.9 g/dL | EXTERNAL | | | | performed at [facility];[address] | | LAB | | | | [address];[place] | | | | | | [address] | | | | + + + + + -+ | A/G Ratio | 0.7 (L)Comment: Testing | 1.0 - 2.4 | EXTERNAL | | | | performed at [facility];[address] | | LAB | | | | [address];[place] | | | | | | [address] | | | | + + + + + -+ | Bilirubin | 0.7Comment: Testing | 0.1 - 1.5 mg/dL | EXTERNAL | | | Total | performed at [facility];[address] | | LAB | | | | [address];[place] | | | | | | [address] | | | | + + + + + -+ | ALP, | 251 (H)Comment: Testing | 35 - 115 U/L | EXTERNAL | | | External | performed at [facility];[address] | | LAB | | | | [address];[place] | | | | | | [address] | | | | + + + + + -+ | AST | 33Comment: Testing | 10 - 45 U/L | EXTERNAL | | | | performed at [facility];[address] | | LAB | | | | [address];[place] | | | | | | [address] | | | | + + + + + -+ | ALT | 36Comment: Testing | 10 - 65 U/L | EXTERNAL | | | | performed at [facility];[address] | | LAB | | | | [address];[place] | | | | | | [address] | | | | + + + [...] | | | | | at [facility];[address] | | | | | | [address];[place] [address] | | | | + + + + + -+ | CK, Total | 50Comment: Testing | 30 - 240 U/L | EXTERNAL | | | | performed at [facility];[address] | | LAB | | | | [address];[place] | | | | | | [address] | | | | + + + [...] | | | | performed at [facility];[address] | | | | | | [address];[place] | | | | | | [address] | | | | + + + + + -+ | aPTT, | 33 (H)Comment: Testing | 23 - 32 seconds | EXTERNAL | | | Patient | performed at [facility];[address] | | LAB | | | | [address];[place] | | | | | | [address] | | | | + + + + + -+ | CK-MB | 0.6Comment: Testing | 0.5 - 3.6 ng/mL | EXTERNAL | | | | performed at [facility];[address] | | LAB | | | | [address];[place], [place] | | | | | | [address] | | | | + + + [...]
--- OUTSIDE RECORDS SUMMARY | ~2019-11-03 | XMS | Encounter Summary ---
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
--- OUTSIDE RECORDS SUMMARY | ~2019-11-03 | XMS | Encounter Summary ---
Demographics + + + | Address | [address] | | | [place] [address] | + + + | Home Phone | | + + + | Preferred Language | Unknown | + + + | Marital Status | | + + + | Latter-Day Affiliation | Unknown | + + + [...] | + + +---------+ + | Terrance Sfoy | ECON | Unknown | | + + +---------+ + Care Team Providers + +------+ + | Care Fish Egg Packer Name | Role | Phone | + +------+ + PCP | Unavailable | + +------+ + Encounter Details +--------+ + + + + | Date | Type | Department | Care Team | Description | +--------+ + + + + | 03/01/ | Hospital | [facility] | Gabriel Myrick | Anemia, unspecified | | 2017 - | Encounter | [facility] | MD Thor [address] | type; Current | | | | CARE FLOOR [address] | [address] | chronic use of | | 03/02/ | | [address] | [place] [address] | systemic steroids; | | 2017 | | [place], [place] | [phone] | Gastroesophageal | | | | [address] | | reflux disease | | | | [phone] | | without esophagitis; | | | [...] Internal Medicine Author Type: Resident-Y1 Filed: 03/02/17 1321 Date of Service: 03/02/17705 Status: Attested Maintenance Shop Welder: BRIAN OttoR2 (Resident-Y2) Cosigner: Chace Benson MD [...] with the progress note of Dr. Jimenez. [facility] Service: Hospitalist Resident Discharge Summary Date [...] being seen by Dr. Tomi CLAYTON in [place]. Antonia he previously underwent a small bowel [...] on file. Follow up: Alireza Krishna MD [address], [address] [place] [address] Call office for appointment. Medication List START [...] Your Medications [facility] [place] [place] [facility] [address] [facility] [place] [address] metroNIDAZOLE 500 MG tablet Na sulfate-K sulfate-Mg sulf 17.5-3.13-1.6 GM/180ML Soln neomycin 500 MG tablet scopolamine 1 mg/3days patch These medications were sent to [facility] [address] [facility], [place] - [address] [facility] [address] , [place] [address] acetaminophen 325 MG tablet lactobacillus granules potassium [...] Note by Gloria Hernandez RN at 03/02/17 3906 Author: Gloria Hernandez RN Service: (none) Author Type: Registered Nurse Filed: 03/02/17 1600 Date of Service: 03/02/17 3448 Status: Signed Maintenance Shop Welder: Gloria Hernandez RN (Registered Nurse) Discharge instructions given to pt and , all questions answered. VSS. Discharged jena e via private vehicle with . onver roshan Transaction, Provider Unknown - 03/02/2017 12:54 PM PST Case Management by Linh Perez RN at 03/02/17 1907 Author: Linh Perez RN Service: (none) Author Type: Registered Nurse Filed: 03/02/17 1257 Date of Service: 03/02/17 1933 Status: Signed Maintenance Shop Welder: Linh Perez RN (Registered Nurse) Pt to d/c home today with Lovenox. 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 Faxed script to [facility] pharmacy for russell check. Notified Marilin with [facility] of d/c. Faxed resumption order to [facility]. Family to trasnport pt home KAMRYN signed Nika Abbi Patel [facility] - 03/02/2017 12:47 PM PSTFormatting of this note might be different from the or iginal. Progress Notes by Abbi Hussein RPH at 03/02/177 Author: Abbi Hussein RPH Service: Pharmacy Author Type: Pharmacist Filed: 03/02/171246 Date of Service: 03/02/171246 Status: Signed Maintenance Shop Welder: Abbi Hussein RPH (Pharmacist) INITIATION OF Parenteral Nutrition: Smita Willingham 61 y.o. female Height: Ht Readings from Last 1 Encounters: 03/02/17 1.727 m (5' 8") Weight: Wt Readings from Last 1 Encounters: 03/02/17 74.2 kg (163 lb 9.3 oz) Body Mass Index: Body mass index is 24.87 kg/m. O'Brien Body Weight: 63.9kg Adjusted Body Weight: 68.0kg Creatinine: CREATININE Date Value Ref Range Status 03/02/2017 0.7 0.50 - 1.00 mg/dL Final Estimated CrCl : Serum creatinine: 0.7 mg/dL 03/02/17 0405 Estimated creatinine clearance: 85.1 mL/min Estimated Needs: Basal Energy Expenditure (BEE): 1409kcal BEE x Major Non - Elective Surgery: = 6068-6533 Kcal needed per day Protein Requirements: Infection, Major Surgery, Cancer: 1.3 - 1.6 g/kg/day PN Line: Central Dextrose: 20% Amino Acids: 6% Lipid 20% 250 mL PN Goal Rate: 65 mL/hr PN Rate on Day 1: 25 mL/hr for 24 hours Amount of non-protein calories and grams of protein this provides: 1561 kcal + 93.6gm Qu=206; CO2=17. Initiating TPN with low Cl formula Pharmacy will continue to follow Pharmacist: ABBI HUSSEIN 03/02/2017 12:43 PM onversio n Transaction, Provider Unknown - 03/02/2017 11:58 AM PSTFormatting of this note might be di fferent from the original. Progress Notes by Honey Gamboa RD at 03/02/17 6328 Author: Honey Gamboa RD Service: (none) Author Type: Registered Dietitian Filed: 03/02/17 5233 Date of Service: 03/02/171157 Status: Signed Maintenance Shop Welder: Honey Gamboa RD (Registered Dietitian) 03/02/17 1130 Subjective Timepoint Admit (Consult: home TPN, wt loss) Pt c/o Pt with hx of Crohn's and chronic diarrhea. She states she has been on TPN for 3 we eks and she has not been eating. Pt currently feeling scared to eat, as she does not want i ncreased diarrhea. Diet Experience Home Nutrition Support TPN from [facility] in [place]: 275 g Dextrose, 90 g AA, 40 [...] Date of Service: 03/02/17 1129 Status: Signed Maintenance Shop Welder: Linh Perez RN (Registered Nurse) 03/02/17 1100 [...] colostmy surgery on Tuesday. Pt lives in [place] with spouse. Pt is indep with all her ADL's. No use of home O 2, no HD. Pt does use a cane and walker as needed. Pt established on coumadin with [place] [facility]. Patient's PCP is: Dr Davina Cox/[facility]. Pt has appnt on 03/23 to [facility] with this PCP Patient's insurance: medicare/[employer] Coverage concerns: no Medication coverage/concerns: no Rx [...] Date of Service: 03/02/17 1037 Status: Signed Maintenance Shop Welder: Ryan Ariza RN (Registered Nurse) Infection Prevention [...] 03/01/172257 Date of Service: 03/01/172257 Status: Signed Maintenance Shop Welder: Hamilton Drummond RPH (Pharmacist) Note ccl 76.4ml/min meds reviewed pharmacy will follow rdc 2258 onver roshan Transaction, Provider Unknown - 03/01/2017 10:35 PM PST Nurse Progress Note by Mila Dolan RN at 03/01/172234 Author: Mila Dolan RN Service: (none) Author Type: Registered Nurse Filed: 03/02/17 0625 Date of Service: 03/01/172234 Status: Addendum Maintenance Shop Welder: Mila Dolan RN (Registered Nurse) Related Notes: Original Note by Mila Dolan RN (Registered Nurse) filed at 03/02/17 [phone] Pt transported to room 4439, via stretcher. [...] 03/02/17801 Date of Service: 03/01/172006 Status: Signed Maintenance Shop Welder: Gabriel Myrick MD (Physician) Related Notes: Original Note by Gabriel Myrick MD (Physician) filed at 03/02/17 0715 HISTORY AND PHYSICAL for Smita Willingham,female,1955,61 y.o. who is being admitted to the adult hospitalist service at [facility]. Date of Admission: 03/01/2017 Requesting Physician: Yogesh [...] SETON PLACEMENT; Surgeon: Enrique Bocanegra MD; Location: [facility]; Service: General; Laterality: N/A; APPENDECTOMY CHOLECYSTECTOMY ESOPHAGOGASTRODUODENOSCOPY Left 08/06/2015 Procedure: ESOPHAGOGASTRODUODENOSCOPY; Surgeon: Sheng Rios MD; Location: [facility] ENDOSCOPY; Service: Gastroenterology; Laterality: Left; ESOPHAGOGASTRODUODENOSCOPY N/A 04/21/2014 Procedure: ESOPHAGOGASTRODUODENOSCOPY; Surgeon: Bony Petty MD; Location: [facility] BEDSIDE PROCEDURE; Service: Gastroenterology; Laterality: N/A; HYSTERECTOMY LAPAROTOMY N/A 04/23/2014 Procedure: EXPLORATION - LAPAROTOMY; Surgeon: Bogdan Moser DO; Location: [facility] MAIN O R; Service: [...] Consults by Enrique Bocanegra MD at 03/02/17 8998 Author: Enrique Bocanegra MD Service: General Surgery Author Type: Physician Filed: 03/02/17 2320 Date of Service: 03/02/17 2502 Status: Addendum Maintenance Shop Welder: Enrique Bocanegra MD (Physician) Related Notes: Original [...] She was then recommended to go to [place] for a second opinion. She never went to [place] due to the trip being a hardship [...] SETON PLACEMENT; Surgeon: Enrique Bocanegra MD; Location: [facility] MAIN OR; Service: General; Laterality: N/A; APPENDECTOMY CHOLECYSTECTOMY ESOPHAGOGASTRODUODENOSCOPY Left 08/06/2015 Procedure: ESOPHAGOGASTRODUODENOSCOPY; Surgeon: Sheng Rios MD; Location: [facility] ENDOSCOPY; Service: Gastroenterology; Laterality: Left; ESOPHAGOGASTRODUODENOSCOPY N/A 04/21/2014 Procedure: ESOPHAGOGASTRODUODENOSCOPY; Surgeon: Bony Petty MD; Location: [facility] BEDSID E PROCEDURE; Service: Gastroenterology; Laterality: N/A; HYSTERECTOMY LAPAROTOMY N/A 04/23/2014 Procedure: EXPLORATION - LAPAROTOMY; Surgeon: Bogdan Moser DO; Location: [facility] MAIN OR; Service: General; Laterality: N/A; LYSIS OF ADHESIONS PORTACATH PLACEMENT Left SMALL INTESTINE SURGERY SPLENECTOMY, TOTAL N/A 04/23/2014 Procedure: SPLENECTOMY; Surgeon: Bogdan Moser DO; Location: [facility] MAIN OR; Service : [...] 03/01/172003 Date of Service: 03/01/172000 Status: Signed Maintenance Shop Welder: Miladys Cardoso RN (Registered Nurse) Per pt [...] 03/01/171906 Date of Service: 03/01/171905 Status: Signed Maintenance Shop Welder: Missy Lee RN (Registered Nurse) Pt receives TPN at home 16 hr/day, TPN ran out upon arrival to ED. mediport flushed, blood drawn. iMssy Lee RN 03/01/171906 Hammad Curry DO - 03/01/2017 7:05 PM PSTFormatting of this note might be different from t velvet original. ED Provider Notes by Hammad Zuñiga DO at 03/01/171904 Author: Hammad Zuñiga DO Service: Emergency Department Author Type: Physician Filed: 03/02/177 Date of Service: 03/01/171904 Status: Signed Maintenance Shop Welder: Hammad Zuñiga DO (Physician) [facility] History of Present Illness Chief [...] Crohn's disease (HCC) Deep vein thrombosis (DVT) ([facility]) right leg and then travelled to spleen [...] SETON PLACEMENT; Surgeon: Enrique Bocanegra MD; Location: [facility] OR; Service: General; Laterality: N/A; APPENDECTOMY CHOLECYSTECTOMY ESOPHAGOGASTRODUODENOSCOPY Left 08/06/2015 Procedure: ESOPHAGOGASTRODUODENOSCOPY; Surgeon: Sheng Rios MD; Location: [facility] ENDOSCOPY; Service: Gastroenterology; Laterality: Left; ESOPHAGOGASTRODUODENOSCOPY N/A 04/21/2014 Procedure: ESOPHAGOGASTRODUODENOSCOPY; Surgeon: Bony Petty MD; Location: [facility] BEDSIDE PROCEDURE; Service: Gastroenterology; Laterality: N/A; HYSTERECTOMY LAPAROTOMY N/A 04/23/2014 Procedure: EXPLORATION - LAPAROTOMY; Surgeon: Bogdan Moser DO; Location: [facility] MAIN O R; Service: [...] Component Value Ref Range Date/Time Cardiac Panel [[id number]] (Abnormal) Collected: 03/01/171900 Order Status: Completed Updated: [...] 1845 Sinus tachycardia with rate of 109 ND interval 338 QTC 514 Nonspecific T-wave changes, [...] 03/01/171852 Date of Service: 03/01/171852 Status: Signed Maintenance Shop Welder: Snow Perez RN (Registered Nurse) Bed: 18 [...] 03/02/1732 Date of Service: 03/02/1732 Status: Signed Maintenance Shop Welder: Mila Dolan RN (Registered Nurse) Problem: Safety [...] 03/01/172108 Date of Service: 03/01/172108 Status: Signed Maintenance Shop Welder: Blanca Fernandez RPH (Pharmacist) Rx Admission Medication History Note I have reviewed the medication history for appropriate doses obtained by: Computer Aided Design Technician . After reviewing the home medication list : I agree with the home medication list. - Reviewed medication history with pharmacy district manager due to computer access - Patient has [...] | performed at [facility] | | | | | | [address];[place] | | | | | | [address] | | | | + + + [...] LAB | | | | performed at [facility], [address] | | | | | | [place], | | | | | | [place] [address] | | | | + + [...] | | | | | [place] [address] | | | | + + + [...] EXTERNAL | | | | performed at [facility], [address] | | LAB | | | | [place], | | | | | | [place] [address] | | | | + + + [...] | | | | | | at [facility], [address] | | | | | | [place], | | | | | | [place] [address] | | | | + + + [...] at | | | | | | [facility];[address];[place] [address] | | | | + + + [...] | | | | | | 01-MAR-2017 16:59,ND | | | | | | interval [...] (500), | | | | | | news videotape editor Hieu Tabor | | | | [...]
--- OUTSIDE RECORDS SUMMARY | ~2019-11-03 | XMS | Encounter Summary ---
Demographics + + + | Address | [address] | | | [place] [address] | + + + | Home Phone [...] [place], [place] | | | | | [address] | | + + + + + | Cami Sawyer | ECON | Unknown | | + + + + + Care Team Providers + +------+ + | Care Disability Manager Name | Role | Phone | [...] | | 2016 | | Center at [facility] [address] | [address] [facility] | [facility] | | | | [facility] | [facility] | | | | | [facility] and | [place] [address] | | | | | [place] [address] | [phone] | | | | | [place], [place] | | | | | | [address] | | | | | | [phone] | | | +--------+ + + + [...]
--- OUTSIDE RECORDS SUMMARY | ~2019-11-03 | XMS | Encounter Summary ---
Demographics + + + | Address | [address] | | | [place] [address] | + + + | Home Phone [...] [place], [place] | | | | | [address] | | + + + + + | Cami Sawyer | ECON | Unknown | | + + + + + Care Team Providers + +------+ + | Care Records Management Analyst Name | Role | Phone | [...] | | 2015 | | Center at [facility] [address] | [address] [facility] | | | | | [facility] | [facility], | | | | | [facility] and | [place] [address] | | | | | [place] [address] | [phone] | | | | | [place], [place] | | | | | | [address] | | | | | | [phone] | | | +--------+ + + + [...]
--- OUTSIDE RECORDS SUMMARY | ~2019-11-03 | XMS | Encounter Summary ---
Demographics + + + | Address | [address] | | | [place] [address] | + + + | Home Phone | | + + + | Preferred Language | Unknown | + + + | Marital Status | | + + + | Zoroastrian Affiliation | Unknown | + + + | Race | Unknown | + + + | Ethnic Group | Unknown | + + + Author + + + | Author | [facility] | | | and [place] | + + + | Organization | [facility] | | | and [...] Team Providers + +------+ + | Care Oncology Radiation Physician Name | Role | Phone | + [...] + + | 03/15/ | Telephone | [facility] | [place], | Appointment | | 2019 | | GENERAL SURGERY [address] | [address] | | | | | [address] | [address] | | | | | [place], [place] | [place] [address] | | | | | [address] | [phone] | | | | | [phone] | | | +--------+ + + + [...] Miscellaneous Notes Telephone Encounter - Dulce Marquez, Sports Equipment Racker - 03/15/2019 9:17 AM Wendy mcconnell returned my call. Patient states she in in town from [place] and would like to be seen ashley [...]
--- OUTSIDE RECORDS SUMMARY | ~2019-11-03 | XMS | Encounter Summary ---
Demographics + + + | Address | [address] | | | [place] [address] | + + + | Home Phone | | + + + | Preferred Language | Unknown | + + + | Marital Status | | + + + | Sikh Affiliation | Unknown | + + + | Race | Unknown | + + + | Ethnic Group | Unknown | + + + Author + + + | Author | [facility] | | | and [place] | + + + | Organization | [facility] | | | and [...] Team Providers + +------+ + | Care Mobile Application Architect Name | Role | Phone [...] Provider Unknown | | | | | [place], [place] | [phone] | | | | | [address] | | | | | | [phone] | | | +--------+ + + + [...]
--- OUTSIDE RECORDS SUMMARY | ~2019-11-03 | XMS | Encounter Summary ---
Demographics + + + | Address | [address] | | | [place] [address] | + + + | Home Phone | | + + + | Preferred Language | Unknown | + + + | Marital Status | | + + + | Cheondoism Affiliation | NRP | + + + [...] [place], [place] | | | | | [address] | | + + + + + | Cami Sawyer | ECON | Unknown | | + + + + + Care Team Providers + +------+ + | Care Engraver Picture Name | Role | Phone | + [...] | Crohn's | Neel Vega MD | [address] | | | | | disease of | [place] | [address] | | | | | both small | HOSP[facility] | [facility] | | | | | and large | CARE CLINIC | [place], [place] | | | | | intestine | [address] | [address] | | | | | without | [address]ND | Phone: | | | | | complication | [place], | [phone] | | | | | s | [place] [address] | Fax: | | | | | | Phone: | [phone] | | | | | | [phone] | | | | | | | Fax: | | | | | | | [phone] | | +--------+--------+ + + + + Encounter Details +--------+---------+ + + + | Date | Type | Department | Care Team | Description | +--------+---------+ + + + | 07/27/ | Office | Digestive Health | Trice Marie MD | Rectovaginal fistula | | 2016 | Visit | Center at [facility] [address] | [address] | (Primary Dx); | | | | [facility] | [facility], | Crohn's disease of | | | | for Health and | [place] [address] | both small and large | | | | Healing, [address] | [phone] | intestine with | | | | [place], [place] | | complication (HCC) | | | | [address] | | | | | | [phone] | | | +--------+---------+ + + + [...] Dimple in her vagina seen by her HEEL CEMENTER MACHINE ~1995 For fibroids and vaginal bleeding, she [...] Referral patient, I spent 62 minutes of [id number] time, of which more than half the [...] colonos copy was this past month at [facility] in [facility] with Dr. Krishna, which per patient was [...] alcohol or use illicit drugs. Lives in [place] with her . FH: Family History: None [...] Recommendations: 1) Review outside colonoscopy completed at [facility] - request has been sent 2) Plan for flex sig locally in [place] in 8 weeks time. Patient to send [...]
--- OUTSIDE RECORDS SUMMARY | ~2019-11-03 | XMS | Encounter Summary ---
Demographics + + + | Address | [address] | | | [place] [address] | + + + | Home Phone | | + + + | Preferred Language | Unknown | + + + | Marital Status | | + + + | Faith Affiliation | Unknown | + + + | Race | Unknown | + + + | Ethnic Group | Unknown | + + + Author + + + | Author | [facility] | | | and [place] | + + + | Organization | [facility] | | [...] Team Providers + +------+ + | Care Replenisher Name | Role | Phone | + [...] | | | | [place] | [phone] | | | | | [address] | | | | | | [phone] | | | +--------+ + + + [...]
--- OUTSIDE RECORDS SUMMARY | ~2019-11-03 | XMS | Encounter Summary ---
Demographics + + + | Address | [address] | | | [place] [address] | + + + | Home Phone | | + + + | Preferred Language | Unknown | + + + | Marital Status | | + + + | Mandaeism Affiliation | Unknown | + + + [...] Team Providers + +------+ + | Care Soap Worker Name | Role | Phone | + +------+ + | No, Physician | PCP | Unavailable | + +------+ + Encounter Details +--------+ + + + + | Date | Type | Department | Care Team | Description | +--------+ + + + + | 03/02/ | Orders Only | [facility] | Enrique Bocanegra, | | | 2016 | | GENERAL SURGERY [address] | MD [address] | | | | | [address] | [facility] [address] | | | | | [place], [place] | [place] [address] | | | | | [address] | [phone] | | | | | [phone] | | | +--------+ + + + [...]
[~2019-11-03 16:06] MED LIST changes: -VITAMIN B125000 MCG PO/IV/IM; +VITAMIN B125000 MCG SL
== END 2019-11-03 18:25 | disposition home or self-care (01) ==
LOC: ED 16:06
DX: F11.23 Opioid dependence with withdrawal (principal); I10 Essential (primary) hypertension; F17.200 Nicotine dependence, unspecified, uncomplicated; Z88.5 Allergy status to narcotic agent; Z88.0 Allergy status to penicillin; Z88.1 Allergy status to other antibiotic agents; Z88.8 Allergy status to other drugs, medicaments and biological substances; Z79.899 Other long term (current) drug therapy; Z79.01 Long term (current) use of anticoagulants
CPT/HCPCS: 96374; 96375; 96376; 99284-25; J2270; J2550; J7030

== ENCOUNTER 2019-11-05 14:50 | Inpatient (IN) | payer MEDICARE, OTHER ==
[~2019-11-05] VITALS: Ht 172.7 cm; Wt 63.5 kg
--- OUTSIDE RECORDS SUMMARY | ~2019-11-05 | XMS | Encounter Summary ---
Demographics + + + | Address | [address] | | | [place] [address] | + + + | Home Phone | | + + + | Preferred Language | Unknown | + + + | Marital Status | | + + + | Voodoo Affiliation | Unknown | + + + | Race | Unknown | + + + | Ethnic Group | Unknown | + + + Author + + + | Author | [facility] | | | and [place] | + + + | Organization | [facility] | | | and [place] | + + + | Address | Unknown | + + + | Phone | Unavailable | + + + Support + + +---------+ + | Name | Relationship | Address | Phone | + + +---------+ + | Kole Willingham | ECON | Unknown | | + + +---------+ + | Terrance Sofy | ECON | Unknown | | + + +---------+ + Care Team Providers + +------+ + | Care Crabbing Machine Operator Name | Role | Phone | + +------+ + PCP | Unavailable | + +------+ + Encounter Details +--------+ + + + + | Date | Type | Department | Care Team | Description | +--------+ + + + + | 03/01/ | [facility] | [facility] | Conversion | | | 2017 | Encounter | [facility]RAY | Transaction, | | | | | [address] | Provider Unknown | | | | | [place], [place] | | | | | | [address] | (Fax) | | | | | [phone] | | | +--------+ + + + + Social History + +-------+ +--------+------+ | Tobacco Use | Types | Packs/Day | Years | Date | | | | | Used | | + +-------+ +--------+------+ | Never Assessed | | | | | + +-------+ +--------+------+ + + + | Sex Assigned at | Date Recorded | | | | + + + | Not on file | | + + + documented as of this encounter Medications at Time of Discharge + + + +---------+ + + | Medication | Sig | Dispensed | Refills | Start | End Date | | | | | | Date | | + + + +---------+ + + | gabapentin | Take 300 mg by mouth | | 0 | 08/21/19 | | | (NEURONTIN) 300 mg | 3 (three) times | | | 16 | | | capsule | daily. | | | | | + + + +---------+ + + | Melatonin ([facility] | Take 10 mg by mouth | | 0 | 03/01/20 | | | MELATONIN) 5 MG CHEW | nightly as needed. | | | 17 | | + + + +---------+ + + | metoprolol | Take 2 tablets by | | 0 | 11/11/19 | | | tartrate (LOPRESSOR) | mouth 2 (two) times | | | 15 | | | 25 mg tablet | daily. | | | | | + + + +---------+ + + | Multiple | Take 1 tablet by | | 0 | 03/01/20 | | | Vitamins-Minerals | mouth daily. | | | 17 | | | (MULTIVITAMIN WITH | | | | | | | MINERALS) tablet | | | | | | + + + +---------+ + + | omeprazole | Take 40 mg by mouth | | 0 | 04/13/19 | | | (PRILOSEC) 40 MG | 2 (two) times daily. | | | 15 | | | capsule | | | | | | + + + +---------+ + + | predniSONE | Take 15 mg by mouth | | 0 | 07/20/19 | | | (DELTASONE) 10 mg | daily. Indications: | | | 15 | | | tablet | 15 mg | | | | | + + + +---------+ + + | promethazine | Take 25 mg by mouth | | 0 | 11/06/19 | | | (PHENERGAN) 25 mg | every 6 (six) hours | | | 15 | | | tablet | as needed for | | | | | | | Nausea. | | | | | + + + +---------+ + + documented as of this encounter Plan of Treatment Not on filedocumented as of this encounter Visit Diagnoses Not on filedocumented in this encounter Additional Health Concerns + + + + + | Infection | Onset Date | Last Indicated | Resolved Time | + + + + + | Methicillin-resistan | 03/01/2017 | 03/01/2017 | | | t Staphylococcus | | | | | aureus | | | | + + + + + documented as of this encounter"
--- OUTSIDE RECORDS SUMMARY | ~2019-11-05 | XMS | Clinical Summary ---
Demographics + + + | Address | [address] | | | [place] [address] | + + + | Home Phone | | + + + | Preferred Language | Unknown | + + + | Marital Status | | + + + | Mormonism Affiliation | NRP | + + + | Race | White | + + + | Ethnic Group | Not or | + + + Author + + + | Author | [facility] | + + + | Organization | [facility] | + + + | Address | Unknown | + + + | Phone | Unavailable | + + + Support + + + + + | Name | Relationship | Address | Phone | + + + + + | Kole Willingham | ECON | [address] | | | | | [place], [place] | | | | | [address] | | + + + + + | Cami Sawyer | ECON | Unknown | | + + + + + Care Team Providers + +------+ + | Care Eco Industrial Development Consultant Name | Role | Phone | + +------+ + | Aren Rose DO | PCP | | + +------+ + Source Comments ARTUR is fully live on both EpicCare Ambulatory and EpicCare InPatient.[facility] Allergies + + + + + + [...] | + + + + + + Medications + + + +---------+------+------+-------+ | Medication | Sig | Dispensed | Refills | Star | End | Statu | | | | | | t | Date | s | | | | | | Date | | | + + + +---------+------+------+-------+ | acetaminophen 325 | 2 tablets by feeding | | 0 | 02/0 | | Activ | | mg oral tablet | tube route every | | | 2/20 | | e | | | six hours. | | | 15 | | | + + + +---------+------+------+-------+ | metoprolol | 0.75 tablets by | 60 | 3 | 02/0 | | Activ | | tartrate 50 mg oral | feeding tube route | tablet | | 2/20 | | e | | tablet | two times daily. | | | 15 | | | + + + +---------+------+------+-------+ | warfarin 7.5 mg | 1 tablet by feeding | 60 | 1 | 02/0 | | Activ | | oral tablet | tube route once | tablet | | 05/31 | | e | | | daily in the | | | 15 | | | | | evening. | | | | | | + + + +---------+------+------+-------+ +---+ + | | Additional | | | InformationPatient | | | taking differently: | | | 6 mg feeding tube | | | EVERY EVENING, | | | Indications: | | | thrombophilia, | | | Reported on | | | 07/28/2015 1:50 PM | +---+ + + + +---+---+------+---+-------+ | omeprazole 40 mg | Take 40 mg by mouth | | 0 | | | Activ | | oral [...] | | | | | + + +---+---+------+---+-------+ | cyanocobalamin | 1,000 mcg. | | 0 | | | Activ | | 1,000 mcg/mL | | | | | | e | | injection solution | | | | | | | + + +---+---+------+---+-------+ | lisinopril 20 mg | 20 mg. | | 0 | 08/0 | | Activ | | oral tablet | | | | 2/20 | | e | | | | | | 15 | | | + + +---+---+------+---+-------+ | LORazepam 0.5 mg | 0.5 mg. | | 0 | | | Activ | | oral tablet | | | | | | e | + + +---+---+------+---+-------+ | morphine 15 mg | 15 mg. | | 0 | 08/0 | | Activ | | oral tablet | | | | 2/20 | | e | | | | | | 15 | | | + + +---+---+------+---+-------+ | potassium chloride | 20 mEq. If taking | | 0 | | | Activ | | SR 20 mEq oral | lasix | | | | | e | | tablet,ER | | | | | | | | particles/crystals | | | | | | | + + +---+---+------+---+-------+ | predniSONE 10 mg | 15 mg. | | 0 | | | Activ | | oral tablet | | | | | | e | + + +---+---+------+---+-------+ | promethazine 25 mg | 25 mg. 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 | + + + + + | Overview: Vaccinations given at [facility] pneumonia and flu and | | at [facility] and meningeal coccal 04/25 | + + + + + | Urinary retention | 05/13/2014 | + + + | Hypokalemia | 03/21/2012 | + + + | Pulmonary infiltrates - bilateral, anterior - hemorrhage vs HCAP | 03/21/2012 | + + + | Sepsis | 03/19/2012 | + + + + + | Overview: ICD10 | + + + + + | PFO (patent foramen ovale) | 03/16/2012 | + + + | Perirectal abscess | 03/14/2012 | + + + | Iron deficiency anemia | 03/14/2012 | + + + | Leukocytosis | 03/14/2012 | + + + | Thrombocytosis | 03/14/2012 | + + + | Popliteal artery thrombosis, 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 | + + Last Filed Vital Signs + + + + + | Vital Sign | Reading | Time Taken | Comments | + + + + + | Blood Pressure | 135/69 | 07/28/2015 1:34 PM | | | | | PDT | | + + + + + | Pulse | 92 | 07/28/2015 1:34 PM | | | | | PDT | | + + + + + | Temperature | 36.8 C (98.2 F) | 07/28/2015 1:34 PM | | | | | PDT | | + + + + + | Respiratory Rate | 16 | 07/28/2015 1:34 PM | | | | | PDT | | + + + + + | Oxygen Saturation | 96% | 07/28/2015 1:34 PM | | | | | PDT | | + + + + + | Inhaled Oxygen | - | - | | | Concentration | | | | + + + + + | Weight | 83.2 kg (183 lb 8 | 07/28/2015 1:34 PM | | | | oz) | PDT | | + + + + + | Height | 175.3 cm (5' 9") | 07/28/2015 1:34 PM | | | | | PDT | | + + + + + | Body Mass Index | 27.1 | 07/28/2015 1:34 PM | | | | | PDT | | + + + + + Plan of Treatment + + + + + | Health Maintenance | Due Date | Last Done | Comments | + + + + + | Pneumococcal | | | | | vaccination (1 of 3 | 2 | | | | - PCV13) | | | | + + + + + | Influenza (Flu) | | | | | vaccination (#1) | 9 | | | + + + + + Results Not on filefrom Last 3 Months Insurance + +--------+ +--------+ + +--------+ | Payer | Benefi | Subscriber | Effect | Phone | Address | Type | | | t Plan | ID | brady | | | | | | / | | Dates | | | | | | Group | | | | | | + +--------+ +--------+ + +--------+ | MEDICARE | MEDICA | xxxxxxxxxx | 04/11/19 | [phone] | [address] | Medica | | | RE A & | | 13-Pre | 1 | [phone] | [address] | | | B | | sent | | [place] | | | | | | | | [phone] | | + +--------+ +--------+ + +--------+ | [employer] | AARP | xxxxxxxxx-x | 04/11/19 | [phone] | [address] | Indemn | | RETIRED PEOPLE | | | 13-Pre | [phone] | [id number] | ity | | | | | sent | | [place], [place] | | | | | | | | [address] | | + +--------+ +--------+ + +--------+ + +--------+ +--------+ + + | Guarantor Name | Accoun | Relation to | Date | Phone | Billing Address | | | t Type | Patient | of | | | | | | | | | | + +--------+ +--------+ + + | Smita Willingham | Person | Self [birth year] | [address] | | | al/Fam | | 1956 | [phone] | [place] [address] | | | bianca | | | 8 (Home) | | | | | | | [phone] | | | | | | | [phone] | | | | | | | (Work) | | + +--------+ +--------+ + + Advance Directives + + + + + | Code Status | Date | Date | Comments | | | Activated | Inactivated | | + + + + + | LIMITED | 04/23/2014 | 05/13/2014 | | | | 12:09 PM | 3:15 PM | | + + + + + + +-----+---+ | Closed Cardiac Massage: | No | | + +-----+---+ | Cardiac Defibrillation: | No | | + +-----+---+ | Endotracheal Intubation: | Yes | | + +-----+---+ | Pressors and Antiarrhythmics: | Yes | | + +-----+---+ + + + +---+ | | | | | + + + +---+ | Full Code | 04/23/2014 | 04/23/2014 | | | | 11:05 AM | 12:09 PM | | + + + +---+ +---------+ + +---+ | | | | | +---------+ + +---+ | DNR/DNI | 03/28/2012 | 04/02/2012 | | | | 5:29 AM | 12:16 AM | | +---------+ + +---+ +---------+ + +---+ | | | | | +---------+ + +---+ | DNR/DNI | 03/15/2012 | 03/28/2012 | | | | 9:34 AM | 5:29 AM | | +---------+ + +---+ + + + +---+ | | | | | + + + +---+ | Full Code | 03/12/2012 | 03/15/2012 | | | | 7:52 PM | 9:34 AM | | + + + +---+
--- OUTSIDE RECORDS SUMMARY | ~2019-11-05 | XMS | Encounter Summary ---
Demographics + + + | Address | [address] | | | [place] [address] | + + + | Home Phone | | + + + | Preferred Language | Unknown | + + + | Marital Status | | + + + | Samaritan Affiliation | NRP | + + + | Race | White | + + + | Ethnic Group | Not or | + + + Author + + + | Author | [facility] | + + + | Organization | [facility] | + + + | Address | Unknown | + + + | Phone | Unavailable | + + + Support + + + + + | Name | Relationship | Address | Phone | + + + + + | Kole Willingham | [place] | [address] | | | | | [place], [place] | | | | | [address] | | + + + + + | Cami Sawyer | ECON | Unknown | | + + + + + Care Team Providers + +------+ + | Care Gravity Flow Irrigator Name | Role | Phone | + [...] | | 2016 | | Center at [facility] [address] | | - General | | | | [facility] | | | | | | for Health and | | | | | | [facility] [address] | | | | | | [place], [place] | | | | | | [address] | | | | | | [phone] | | | +--------+ + + + [...]
--- OUTSIDE RECORDS SUMMARY | ~2019-11-05 | XMS | Encounter Summary ---
Demographics + + + | Address | [address] | | | [place] [address] | + + + | Home Phone | | + + + | Preferred Language | Unknown | + + + | Marital Status | | + + + | Samaritan Affiliation | Unknown | + + + | Race | Unknown | + + + | Ethnic Group | Unknown | + + + Author + + + | Author | [facility] | | | and [place] | + + + | Organization | [facility] | | | and [...] Team Providers + +------+ + | Care Washerette Machine Operator Name | Role | Phone | + +------+ + | No, Physician | PCP | Unavailable | + +------+ + Encounter Details +--------+ + + + + | Date | Type | Department | Care Team | Description | +--------+ + + + + | 03/01/ | Orders Only | [facility] | Conversion | | | 2017 | | CONVERSION [address] | Transaction, | | | | | [address] | Provider Unknown | | | | | [place], [place] | [phone] | | | | | [address] | | | | | | [phone] | | | +--------+ + + + [...]
--- OUTSIDE RECORDS SUMMARY | ~2019-11-05 | XMS | Encounter Summary ---
Demographics + + + | Address | [address] | | | [place] [address] | + + + | Home Phone | | + + + | Preferred Language | Unknown | + + + | Marital Status | | + + + | Taoist Affiliation | Unknown | + + + | Race | Unknown | + + + | Ethnic Group | Unknown | + + + Author + + + | Author | [facility] | | | and [place] | + + + | Organization | [facility] | | | and [place] | + + + | Address | Unknown | + + + | Phone | Unavailable | + + + Support + + +---------+ + | Name | Relationship | Address | Phone | + + +---------+ + | Kole Willingham | ECON | Unknown | | + + +---------+ + | Terrance Goetz | ECON | Unknown | | + + +---------+ + Care Team Providers + +------+ + | Care Protective Services Officer Name | Role | Phone | + +------+ + | No, Physician | PCP | Unavailable | + +------+ + Encounter Details +--------+ + + + + | Date | Type | Department | Care Team | Description | +--------+ + + + + | 03// | Documentati | [facility] | Angelina Sandoval, | | | 2019 | on | GENERAL SURGERY [address] | Bank Representative | | | | | [address] | | | | | | [place], [place] | | | | | | [address] | | | | | | [phone] | | | +--------+ + + + + Social History + +-------+ +--------+------+ | Tobacco Use | Types | Packs/Day | Years | Date | | | | | Used | | + +-------+ +--------+------+ | Current Every Day | | 0.5 | | | | Smoker | | | | | + +-------+ +--------+------+ + + | Comments: e cigs | + + + + + | Sex Assigned at | Date Recorded | | | | + + + | Not on file | | + + + documented as of this encounter [employer] 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 Fax confirmation received. documented in this encounter Plan of Treatment Not on [...]
--- OUTSIDE RECORDS SUMMARY | ~2019-11-05 | XMS | Encounter Summary ---
Demographics + + + | Address | [address] | | | [place] [address] | + + + | Home Phone | | + + + | Preferred Language | Unknown | + + + | Marital Status | | + + + | Orthodox Affiliation | Unknown | + + + | Race | Unknown | + + + | Ethnic Group | Unknown | + + + Author + + + | Author | [facility] | | | and [place] | + + + | Organization | [facility] | | | [...] Team Providers + +------+ + | Care Gas Station Manager Name | Role | Phone | + +------+ + PCP | Unavailable | + +------+ + Encounter Details +--------+ + + + + | Date | Type | Department | Care Team | Description | +--------+ + + + + | 10/16/ | Hospital | [facility] | Enrique Bocanegra, | Rectovaginal fistula | | 2016 | Encounter | [facility] | [address] | | | | | [address] | [address] | | | | | [place], [place] | [place] [address] | | | | | [address] | [phone] | | | | | [phone] | | | +--------+ + + + [...] documented as of this encounter Progress Notes Conversion Transaction, Provider Unknown - 10/17/2015 8:10 PM PDTFormatting of this note m ight be different from the original. Nurse Progress Note by Osvaldo Dial RN at 10/17/152009 Author: Osvaldo Dial RN Service: Anesthesiology Author Type: Registered Cirilo se Filed: 10/17/153 Date of Service: 10/17/152009 Status: Signed Records Tech: Osvaldo Dial RN (Registered Nurse) Patient and spouse in room. Went over D/C instructions that included post anesthesia care, wound care, pain medication, DVT education. States understanding. Medi-port de accessed per sterile protocol. Prior to removal 500 units of heparin injected into line. Sterile dressing and Tegaderm applied. D/C folder sent home with patient belongings. D/C via w/c home. docume nted in this encounter H&P Notes Enrique Bocanegra MD - 10/17/2015 3:38 PM PDTFormatting of this note might be different f rom the original. H&P by Enrique Bocanegra MD at 10/17/15 1538 Author: Enrique Bocanegra MD Service: General Surgery Author Type: Physician Filed: 10/17/151537 Date of Service: 10/17/151537 Status: Signed Records Tech: Enrique Bocanegra MD (Physician) Chief Complaint & HPI: Smita is a pleasant 60-year-old lady who is diagnosed with Crohn's disease for over 40 year s. She is currently on prednisone 50 mg daily. She has a rough course with Crohn's. She required a small bowel resection and 17 inches wer e removed according to her. 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 Patient recently has been having recurrent urinary tract infection and she believes that th e fistula could be responsible for the urinary tract infection. Patient states that she only has stool from the vagina if the stool was liquid. She said th at with the narcotics she is on her stool is mostly solid and os accidents from the anal vag inal fistula are very rare. Marketing Budget Analyst needed: No Last colonoscopy: Yes Rectal Bleeding:No Bleeding bright red or dark red: No Blood on Toilet Paper: No Blood in Toilet Water: No Feel rectum is falling out of anus: No Does rectum go back in spontaneously: No Have to push the rectum back in manually: No Ever unable to push rectum back in: No Severe pain around the anus: Yes Feel a ripping at the anus with bowel movements: No Have itching/burning at the anus: No Ever have anal warts: No Have drainage from the anus: No Incontinent to solid stool: No Incontinent to liquid stool: No Incontinent to gas: No trauma that required stitches: No Abdominal pain or cramps: No Family member with colon cancer at age less than 50: No Family member with colon polyps: No Family member with more than 10 colon polyps: No Need antibiotics prior to dental procedure: Yes Past Medical History Diagnosis Date COPD (chronic obstructive pulmonary disease) (HCC) Crohn's disease (HCC) 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) Recurrent aphthous ulcer E-coli UTI Hypokalemia Microcytic anemia Neuropathy Hypertension 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) Other chronic pain GERD (gastroesophageal reflux disease) Osteoporosis Depression Chronic diarrhea Gastroesophageal reflux disease with hiatal hernia Sepsis (HCC) Pyelonephritis Past Surgical History Procedure Laterality Date Abdominal surgery Small intestine surgery Lysis of adhesions Cholecystectomy Appendectomy Hysterectomy Tonsillectomy Portacath placement Left Esophagogastroduodenoscopy N/A 04/21/2014 Procedure: ESOPHAGOGASTRODUODENOSCOPY; Surgeon: Bony Petty MD; Location: [facility] PROCEDURE; Service: Gastroenterology; Laterality: N/A; Laparotomy N/A 04/23/2014 Procedure: EXPLORATION - LAPAROTOMY; Surgeon: Bogdan Moser DO; Location: [facility] MAIN OR; Service: General; Laterality: N/A; Splenectomy, total N/A 04/23/2014 Procedure: SPLENECTOMY; Surgeon: Bogdan Moser DO; Location: [facility] MAIN OR; S ervice: General; Laterality: N/A; Esophagogastroduodenoscopy Left 08/06/2015 Procedure: ESOPHAGOGASTRODUODENOSCOPY; Surgeon: Sheng Rios MD; Locati on: [facility] ENDOSCOPY; Service: Gastroenterology; Laterality: Left; Social History History Social History Marital Status: Spouse Name: N/A Number of Children: N/A Years of Education: N/A Occupational History Not on file. Social History Main Topics Smoking status: Current Every Day Smoker -- 0.50 packs/day Smokeless tobacco: Never Used Alcohol Use: Yes Comment: occasionally Drug Use: No Sexual Activity: Partners: Male Other Topics Concern Not on file Social History Narrative Current Outpatient Prescriptions on File Prior to Visit Medication Sig Dispense Refill morphine (MSIR) 15 MG tablet Take 1 tablet by mouth 5 (five) times daily. PRN 150 tablet 0 predniSONE (DELTASONE) 10 MG tablet Take 15 mg by mouth daily. Indications: 15 mg warfarin (COUMADIN) 6 MG tablet Take 6 mg by mouth daily. lactobacillus (FLORANEX) granules Take 1 packet by mouth 2 (two) times daily. 30 each 0 lisinopril (ZESTRIL) 20 MG tablet Take 1 tablet by mouth 2 (two) times daily. LORazepam (ATIVAN) 0.5 MG tablet Take 0.5 mg by mouth every 6 (six) hours as needed for Anxiety. metoprolol (LOPRESSOR) 25 MG tablet Take 2 tablets by mouth 2 (two) times daily. (P atient taking differently: Take 50 mg by mouth 2 (two) times daily. Indications: 50 mg bid) omeprazole (PRILOSEC) 40 MG capsule Take 40 mg by mouth 2 (two) times daily. oxyCODONE-acetaminophen (PERCOCET) 7.5-325 MG per tablet Take 1-2 tablets by mouth every 8 (eight) hours as needed for Pain. 60 tablet 0 promethazine (PHENERGAN) 25 MG tablet Take 25 mg by mouth every 6 (six) hours as ne eded for Nausea. vancomycin (VANCOCIN) 25 mg/mL SOLN Take 10 mLs by mouth every 6 (six) hours. 300 mL 1 No current facility-administered medications on file prior to visit. Allergies Allergen Reactions Demerol [Meperidine] Other (See Comments) Unknown Erythromycin Other (See Comments) unknown Levofloxacin Other (See Comments) tendinitis Reglan [Metoclopramide] Agitation Unknown Penicillins Nausea and Vomiting History reviewed. No pertinent family history. There were no vitals taken for this visit. Subjective: Patient ID: Smita Willingham is a 60 y.o. female. HPI Review of Systems Constitutional: Positive for chills, activity change and fatigue. Negative for fever, diaph oresis, appetite change and unexpected weight change. Gastrointestinal: Positive for nausea and vomiting. Negative for abdominal pain, diarrhea, constipation, blood in stool, abdominal distention, anal bleeding and rectal pain. Objective Objective: Physical Exam Constitutional: She is oriented to person, place, and time. She appears well-developed and well-nourished. No distress. HENT: Head: Atraumatic. Eyes: Pupils are equal, round, and reactive to light. Neck: Neck supple. Cardiovascular: Normal rate. Pulmonary/Chest: Effort normal. No respiratory distress. Abdomina/Gl: Soft. She exhibits no distension. There is no tenderness. Genitourinary: Neurological: She is alert and oriented to person, place, and time. Skin: Skin is warm. She is not diaphoretic. Psychiatric: Her mood appears anxious. Her affect is labile. Nursing note and vitals reviewed. Assessment/Plan Assessment and Plan: Smita is a pleasant 60-year-old lady who suffers with Crohn's disease and recurrent urinary tract infections. She believes her recurrent urinary tract infections are due to an anovagi nal fistula she had Crohn's disease for over 20 years. Perioperative tract infections are recent. I am uncertain of the anovaginal fistula is the reason for it. Her symptoms of fecal matter from the vagina is only if her stool is liquid a nd that is rare according to the patient because her stools are more solid-type. I informed the patient that I planned for in and examine anesthesia and seton placement. Antonia he will need to be off her Coumadin. We will communicate with her doctor in that regard. Patient is aware that the seton might be permanent. She is also aware that surgeries to cor rect the anovaginal fistula with Crohn's patients might be morbid and might leave chronic no nhealed wound. We will discuss her options following the exam under anesthesia and seton placement. documented in this encounter Miscellaneous Notes Op Note - Enrique Bocanegra MD - 10/17/2015 6:26 PM PDTFormatting of this note might be d ifferent from the original. Op Note by Enrique Bocanegra MD at 10/17/151825 Author: Enrique Bocanegra MD Service: General Surgery Author Type: Physician Filed: 10/17/151846 Date of Service: 10/17/151825 Status: Signed Records Tech: Enrique Bocanegra MD (Physician) [facility] Service: Colon & Rectal Surgery Operative Note Pre-operative Diagnosis: Crohn's disease, perianal and anovaginal fistula. Post-operative Diagnosis: Same Procedure(s): Exam under anesthesia, seton placement. Rectal mucosa biopsy Surgeon: Enrique Bocanegra MD Neuro Psych Sales Specialist(s): none Anesthesia: General endotrachial anesthesia and Local anesthesia Estimated Blood Loss: Less Than 10 ml (Minimal) Other: Specimens: rectal mucosa Indications: See pre-operative history and physical. Findings: Right lateral internal opening at dentate line coursing in a high transsphincter ic tract. Three internal openings, one at dentate line anterior midline and two proximal to dentate line anterior midline all tract high into the vagina anteriorly. No active infection or abscess. There is mild inflammation in the rectum. Complications: None acute Description of Procedure: The patient was taken back to the operating room. Gen. anesthesia with endotracheal intuba tion. Preoperative antibiotics were given. Patient was placed in the prone jackknife posit ion. The area was prepped and draped in the usual sterile fashion. Digital rectal exam and anoscopy were performed. Finding were of Right lateral internal ope indra at dentate line coursing in a high transsphincteric tract. Three internal openings, one at dentate line anterior midline and two proximal to dentate line anterior midline all trac t high into the vagina anteriorly. No active infection or abscess. There is mild inflammatio n in the rectum. Vessel loop setons were placed in each fistula tract and secured with 2-0 s ilk. The right lateral external opening was medialized to shorten the fistula tract. I took a biopsy of the rectal wall posteriorly and sent that to pathology. Condition: Stable Enrique Bocanegra MD 10/17/2015 documented in this encounter Plan of Treatment Not on filedocumented as of this encounter Procedures + +--------+ + + + | Procedure Name | Priori | Date/Time | Associated Diagnosis | Comments | | | ty | | | | + +--------+ + + + | TISSUE REQUEST FOR | Routin | 10/20/2015 | | Results for this | | PATHOLOGY (NON-ORD) | e | 12:00 AM | | procedure are in the | | | | PDT | | results section. | + +--------+ + + + documented in this encounter Results Tissue Request For Pathology (10/20/2015 12:00 AM PDT) + + | Specimen | + + | Soft tissue sample | | (specimen) | + + + + + | Narrative | Performed At | + + + | SPECIMEN(S): A RECTAL BIOPSY SPECIMEN SOURCE: A. RECTAL BIOPSY | EXTERNAL LAB | | CLINICAL HISTORY: 10/17/2015. No clinical history given. | | | MICROSCOPIC DESCRIPTION: Histologic sections of all submitted blocks | | | are examined by light microscopy. These findings, together with the | | | gross examination, support the pathologic diagnosis. FINAL PATHOLOGIC | | | DIAGNOSIS: Rectum, biopsies: - Hyperplastic polyp. AMB:mdm:C2NR | | | GROSS DESCRIPTION: The specimen is received in formalin labeled | | | with the patient's name and designated "rectal biopsy" and consists of | | | one yellow-echavarria soft-tissue fragment that is 0.7 cm in greatest | | | dimension. The specimen is inked, bisected, and entirely submitted in | | | cassette A1. fam:emb PERFORMING LABORATORY: Professional | | | interpretation and technical preparation was performed by [facility] | | | [facility], [address], | | | [place] [address] (Interactive Media Director: Raphael Yee M.D.; IA#: | | | [id number]). Diagnostician: Honey Mcduffie MD Pathologist | | | Electronically Signed 10/21/2015 | | + + + + +---------+ + + | Performing | Address | City/State/Zipcode | Phone Number | | Organization | | | | + +---------+ + + | EXTERNAL LAB | | | | + +---------+ + + documented in this encounter Visit Diagnoses + + | Diagnosis | + + | Rectovaginal fistula Digestive-genital tract fistula, female | + + documented in this encounter
--- OUTSIDE RECORDS SUMMARY | ~2019-11-05 | XMS | Encounter Summary ---
Demographics + + + | Address | [address] | | | [place] [address] | + + + | Home Phone | | + + + | Preferred Language | Unknown | + + + | Marital Status | | + + + | Sabianist Affiliation | NRP | + + + | Race | White | + + + | Ethnic Group | Not or | + + + Author + + + | Author | [facility] | + + + | Organization | [facility] | + + + | Address | Unknown | + + + | Phone | Unavailable | + + + Support + + + + + | Name | Relationship | Address | Phone | + + + + + | Kole Willingham | [place] | [address] | | | | | [place], [place] | | | | | [address] | | + + + + + | Cami Sawyer | ECON | Unknown | | + + + + + Care Team Providers + +------+ + | Care Senior Telecommunications Engineer Name | Role | Phone | + +------+ + | Aren Rose DO | PCP | | + +------+ + Encounter Details +--------+ + + + + | Date | Type | Department | Care Team | Description | +--------+ + + + + | 05/22/ | Telephone | Trauma Emergency | Rosita Perez, | | | 2015 | | General Surgery at | [facility] [facility] [address] | | | | | [facility] [address] | | | | | [address] | [place], [place] | | | | | [facility] [place], | [address] | | | | | [address]nd Floor | [phone] | | | | | [place], [place] | | | | | | [address] | | | | | | [phone] | | | +--------+ + + + [...]
--- OUTSIDE RECORDS SUMMARY | ~2019-11-05 | XMS | Encounter Summary ---
Demographics + + + | Address | [address] | | | [place] [address] | + + + | Home Phone | | + + + | Preferred Language | Unknown | + + + | Marital Status | | + + + | Scientology Affiliation | NRP | + + + [...] [place], [place] | | | | | [address] | | + + + + + | Cami Sawyer | ECON | Unknown | | + + + + + Care Team Providers + +------+ + | Care Oil Truck Driver Name | Role | Phone | + [...] | +--------+ + + + + | 03/17/ | Anesthesia | 6A Intra Op 3181 | Ryan Dubois, | | | 2011 | Event | [address] | [address] | | | | | [facility] | [address] | | | | | Hospital Admitting | [place], [place] | | | | | Desk Located on the | [address] | | | | | 9th floor | [phone] | | | | | [facility] [place] | | | | | | [address] | Bigg Smalls MD | | | | | | [address] | | | | | | [address] | | | | | | [place], [place] | | | | | | [address] | | | | | | [phone] | | | | | | | | +--------+ + + + + Anesthesia Record + + + + + | Procedure Name | Responsible | Anesthesia Start | Anesthesia Stop Time | | | Anesthesiologist | Time | | + + + + + | RIGHT POPLITEAL | Ryan Dubois MD | 03/17/12 0853 | 03/17/12 1114 | | ANTEROTIBIAL | | | | | EMBOLECTOMY (Right | | | | | Leg) | | | | + + + + + +----+---+ + + | Da | T | Event | Comment | | te | i | | | | | m | | | | | e | | | +----+---+ + + | 12 | 0 | An Start | | | /0 | 8 | | | | 7/ | 5 | | | | 20 | 3 | | | | 12 | | | | +----+---+ + + | | 0 | Eq Check | Anesthesia machine checked Equipment verified | | | 8 | | | | | 5 | | | | | 3 | | | +----+---+ + + | | 0 | Pt. Check | Prior to anesthesia start, pt. Identified, examined, chart | | | 8 | | reviewed, PARQ held, anesthetic plan made or approved by | | | 5 | | attending anesthesiologist. NPO status confirmed as appropriate | | | 5 | | for procedure Preoperative evaluation: unchanged | +----+---+ + + | | 0 | An Start | | | | 8 | Data | | | | 5 | | | | | 5 | | | +----+---+ + + | | 0 | Vitals | Monitors applied Vital signs checked Patient ready for anesthesia | | | 8 | Checked | | | | 5 | | | | | 5 | | | +----+---+ + + | | 0 | Std. Airway | | | | 8 | Mgt. | | | | 5 | | | | | 8 | | | +----+---+ + + | | 0 | Abx held | Abx held for Medical Reason: Contraindicated or already receiving | | | 9 | Medical or | antibiotics | | | 0 | Surgical | | | | 0 | Reason | | +----+---+ + + | | 0 | an faye now | | | | 9 | | | | | 0 | | | | | 5 | | | +----+---+ + + | | 0 | Ready | | | | 9 | | | | | 0 | | | | | 5 | | | +----+---+ + + | | 0 | Incision | | | | 9 | | | | | 2 | | | | | 5 | | | +----+---+ + + | | 0 | Abx | | | | 9 | Administere | | | | 4 | d | | | | 5 | | | +----+---+ + + | | 0 | Quick Note | Froylan Vázquez CRNA 15 min. Break [id number] | | | 9 | | | | | 5 | | | | | 9 | | | +----+---+ + + | | 1 | Surgery end | | | | 0 | | | | | 4 | | | | | 2 | | | +----+---+ + + | | 1 | an faye now | | | | 1 | | | | | 0 | | | | | 0 | | | +----+---+ + + | | 1 | An Extubate | Neuromuscular function Intact. Pharynx suctioned. Patient obeys | | | 1 | | commands. Adequate pulmonary mechanics. | | | 0 | | | | | 0 | | | +----+---+ + + | | 1 | an stop | | | | 1 | data | | | | 0 | | | | | 2 | | | +----+---+ + + | | 1 | Anesthesia | | | | 1 | End | | | | 1 | | | | | 4 | | | +----+---+ + + +------+ | Meds | +------+ + + + | Name | Total | + + + | hydrocortisone sod succ | 100 mg | + + + | rocuronium | 30 mg | + + + | fentaNYL | 150 mcg | + + + | ketamine | 40 mg | + + + | midazolam | 1 mg | + + + | lidocaine 2% | 60 mg | + + + | etomidate | 10 mg | + + + | propofol | 50 mg | + + + | succinylcholine | 100 mg | + + + | heparin | 3,000 Units | + + + | heparin INF | 4,023.33 Units | + + + | HYDROmorphone | 0.5 mg | + + + | ondansetron | 4 mg | + + + | neostigmine | 3 mg | + + + | glycopyrrolate | 0.4 mg | + + + | lactated ringers IV | 500 mL | + + + | NaCl 0.9 % IV | 500 mL | + + + + + | Name | + + | Insp Sevo | + + | Et Sevo | + + | O2 Flow Rate (Total Liters) | + + | Air Flow rate (L/min) | + + + + | No blood administrations on file. | + + +--------+ + + + | Type | Details | Placement | Removal | +--------+ + + + | RETIRE | 03/12/12 (at OSH); 03/18/12; | 03/12/12 0000 by | 03/18/12 1620 by | | D - | 1620; Yes; Maryann | Maia Ferrell, | Mercy Smith RN | | Tanvi | | CREDIT RESOLUTION REPRESENTATIVE | | | y Cath | | | | | | | | | | Placem | | | | | ent | | | | | (Amanda | | | | | & Cath | | | | | Care | | | | | Daily | | | | | and Q | | | | | BM) | | | | +--------+ + + + | RETIRE | 03/12/12; (at OSH); 03/17/12; | 03/12/12 0000 by | 03/17/12 1800 by | | D - | 1800; Yes; 22; Left; Vanessa | Maia Ferrell, | Nadir Cole RN | | Periph | | CREDIT RESOLUTION REPRESENTATIVE | | | eral | | | | | Line | | | | +--------+ + + + | RETIRE | 03/13/12; 0800; bilat hip area; | 03/13/12 0800 by | 03/18/12 0647 by | | D - | Yes; Bilateral:; hip; 03/18/12; | Jessica Desouza, | Inez | | Wound | 0647 | RN | LUKASZ Lopez | +--------+ + + + | RETIRE | 03/16/12; 2106; 03/18/12; 1420 | 03/16/12 2107 by | 03/18/12 1420 by | | D - | (removed by IVT); No; 22; Right; | Ofelia Boyer RN | Mercy Smith RN | | Periph | Antecubital; Lidocaine; No; | | | | eral | Positive | | | | Line | | | | +--------+ + + + | RETIRE | 03/17/12; 0959; Leg Incision; No; | 03/17/12 0959 by | 01/27/17 1622 by | | D - | medial, Right:; leg; 01/27/17 | Jared Sharp | Discontinued After | | Incisi | (Automatic cleanup per RA | | Discharge | | on | 3006--contact admin for | | | | | questions.); 1622 (Automatic | | | | | cleanup per RA 3006--contact | | | | | admin for questions.) | | | +--------+ + + + | RETIRE | 03/17/12; 1032; 03/18/12; 1018 | 03/17/12 1032 by | 03/18/12 1018 by | | D - | (MD removed); Right Leg Drain; 7 | Jared Sharp | Mercy Smith RN | | Drains | mm; FARRUKH; Right; Leg | | | | | | | | | (wound | | | | | s/surg | | | | | ical) | | | | +--------+ + + + documented in this encounter Social History + +-------+ +--------+------+ | Tobacco [...] Diagnoses Not on filedocumented in this encounter Administered Medications + +--------+ +-------+------+------+ | Medication Order | MAR | Action | Dose | Rate | Site | | | Action | Date | | | | + +--------+ +-------+------+------+ | etomidate (aka AMIDATE) | Given | 03/17/20 | 10 mg | | | | injection INTRAPROCEDURE PRN, | | 12 8:57 | | | | | Starting 03/17/12 at 0857, | | AM PST | | | | | Until 03/17/12 at 1102 | | | | | | + +--------+ +-------+------+------+ +---+---+ | | | +---+---+ + +-------+ +--------+---+---+ | fentaNYL citrate (PF) (aka | Given | 03/17/20 | 50 mcg | | | | SUBLIMAZE) injection | | 12 10:01 | | | | | INTRAPROCEDURE PRN, Starting Fri | | AM PST | | | | | 03/17/12 at 0905, Until Fri | | | | | | | 03/17/12 at 1102, sedation | | | | | | + +-------+ +--------+---+---+ +-------+ +--------+---+---+ | Given | 03/17/20 | 50 mcg | | | | | 12 9:37 | | | | | | AM PST | | | | +-------+ +--------+---+---+ | Given | 03/17/20 | 50 mcg | | | | | 12 9:05 | | | | | | AM PST | | | | +-------+ +--------+---+---+ +---+---+ | | | +---+---+ + +-------+ +--------+---+---+ | glycopyrrolate (aka BUFFY) | Given | 03/17/20 | 0.4 mg | | | | injection INTRAPROCEDURE PRN, | | 12 10:37 | | | | | Starting 03/17/12 at 1037, | | AM PST | | | | | Until 03/17/12 at 1102 | | | | | | + +-------+ +--------+---+---+ +---+---+ | | | +---+---+ + +-------+ +--------+---+---+ | heparin bolus from continuous | Given | 03/17/20 | 3,000 | | | | infusion (protocol) intravenous, | | 12 9:53 | Units | | | | INTRAPROCEDURE PRN, Starting Fri | | AM PST | | | | | 03/17/12 at 0953, Until Fri | | | | | | | 03/17/12 at 1102 | | | | | | + +-------+ +--------+---+---+ +---+---+ | | | +---+---+ + +---------+ + + +---+ | heparin in D5W IV infusion | New Bag | 03/17/20 | 1,700 | 17 mL/hr | | | 25,000 units/250 mL (100 | | 12 8:52 | Units/hr | | | | units/mL) intravenous, | | AM PST | | | | | INTRAPROCEDURE CONTINUOUS PRN, | | | | | | | Starting 03/17/12 at 0852, | | | | | | | Until Tue03/17/12 at 1102 | | | | | | + +---------+ + + +---+ +---+---+ | | | +---+---+ + +-------+ +--------+---+---+ | hydrocortisone sodium succinate | Given | 03/17/20 | 100 mg | | | | (PF) (aka ILA-CORTEF) injection | | 12 9:21 | | | | | INTRAPROCEDURE PRN, Starting | | AM PST | | | | | 03/17/12 at 0921, Until Fri | | | | | | | 03/17/12 at 1102 | | | | | | + +-------+ +--------+---+---+ +---+---+ | | | +---+---+ + +-------+ +--------+---+---+ | HYDROmorphone (aka DILAUDID) | Given | 03/17/20 | 0.5 mg | | | | injection INTRAPROCEDURE PRN, | | 12 10:19 | | | | | Starting 03/17/12 at 1019, | | AM PST | | | | | Until 03/17/12 at 1102, | | | | | | | sedation | | | | | | + +-------+ +--------+---+---+ +---+---+ | | | +---+---+ + +-------+ +-------+---+---+ | ketamine (aka KETALAR) | Given | 03/17/20 | 40 mg | | | | injection INTRAPROCEDURE PRN, | | 12 9:05 | | | | | Starting Tue03/17/12 at 0905, | | AM PST | | | | | Until Tue03/17/12 at 1102, | | | | | | | sedation | | | | | | + +-------+ +-------+---+---+ +---+---+ | | | +---+---+ + + + +----+---+---+ | lactated ringers IV 500 mL, | given by | 03/17/20 | mL | | | | intravenous, POSTPROCEDURE PRN, 1 | | 12 10:36 | | | | | dose, Starting Tue03/17/12 at | anesthes | AM PST | | | | | 1020, Until Tue03/17/12 at 0853, | iology | | | | | | hypotension | | | | | | + + + +----+---+---+ + + +----+---+---+ | given by anesthesiology | 03/17/20 | mL | | | | | 12 9:56 | | | | | | AM PST | | | | + + +----+---+---+ | New Bag | 03/17/20 | mL | | | | | 12 8:53 | | | | | | AM PST | | | | + + +----+---+---+ +---+---+ | | | +---+---+ + +-------+ +-------+---+---+ | lidocaine (aka XYLOCAINE MPF) | Given | 03/17/20 | 60 mg | | | | 20 mg/mL (2 %) injection | | 12 8:56 | | | | | INTRAPROCEDURE PRN, Starting Fri | | AM PST | | | | | 03/17/12 at 0856, Until Fri | | | | | | | 03/17/12 at 1102 | | | | | | + +-------+ +-------+---+---+ +---+---+ | | | +---+---+ + +-------+ +------+---+---+ | midazolam (aka VERSED) | Given | 03/17/20 | 1 mg | | | | injection INTRAPROCEDURE PRN, | | 12 8:53 | | | | | Starting Tue03/17/12 at 0853, | | AM PST | | | | | Until Tue03/17/12 at 1102, | | | | | | | sedation | | | | | | + +-------+ +------+---+---+ +---+---+ | | | +---+---+ + + + +----+---+---+ | NaCl 0.9 % IV 500 mL, | given by | 03/17/20 | mL | | | | intravenous, POSTPROCEDURE PRN, 1 | | 12 10:37 | | | | | dose, Starting Tue03/17/12 at | anesthes | AM PST | | | | | 1020, Until Tue03/17/12 at 0911, | iology | | | | | | hypotension | | | | | | + + + +----+---+---+ +---------+ +----+---+---+ | New Bag | 03/17/20 | mL | | | | | 12 9:11 | | | | | | AM PST | | | | +---------+ +----+---+---+ +---+---+ | | | +---+---+ + +-------+ +------+---+---+ | neostigmine (aka PROSTIGMIN) | Given | 03/17/20 | 3 mg | | | | injection intravenous, | | 12 10:37 | | | | | INTRAPROCEDURE PRN, Starting Fri | | AM PST | | | | | 03/17/12 at 1037, Until Fri | | | | | | | 03/17/12 at 1102 | | | | | | + +-------+ +------+---+---+ +---+---+ | | | +---+---+ + +-------+ +------+---+---+ | ondansetron (aka ZOFRAN) | Given | 03/17/20 | 4 mg | | | | injection INTRAPROCEDURE PRN, | | 12 10:37 | | | | | Starting 03/17/12 at 1037, | | AM PST | | | | | Until 03/17/12 at 1102 | | | | | | + +-------+ +------+---+---+ +---+---+ | | | +---+---+ + +-------+ +-------+---+---+ | propofol INTRAPROCEDURE PRN, | Given | 03/17/20 | 50 mg | | | | Starting Tue03/17/12 at 0857, | | 12 8:57 | | | | | Until Tue03/17/12 at 1102 | | AM PST | | | | + +-------+ +-------+---+---+ +---+---+ | | | +---+---+ + +-------+ +-------+---+---+ | rocuronium (aka ZEMURON) | Given | 03/17/20 | 20 mg | | | | injection INTRAPROCEDURE PRN, | | 12 9:25 | | | | | Starting Tue03/17/12 at 0925, | | AM PST | | | | | Until Tue03/17/12 at 1102, | | | | | | | Neuromuscular block | | | | | | + +-------+ +-------+---+---+ +-------+ +-------+---+---+ | Given | 03/17/20 | 10 mg | | | | | 12 9:11 | | | | | | AM PST | | | | +-------+ +-------+---+---+ +---+---+ | | | +---+---+ + +-------+ +--------+---+---+ | SUCCINYLCHOLINE CHLORIDE 20 | Given | 03/17/20 | 100 mg | | | | MG/ML INJ (PROSED/RSI) | | 12 8:57 | | | | | INTRAPROCEDURE PRN, Starting Fri | | AM PST | | | | | 03/17/12 at 0857, Until Fri | | | | | | | 03/17/12 at 1102, Neuromuscular | | | | | | | block | | | | | | + +-------+ +--------+---+---+ +---+---+ | | | +---+---+ documented in this encounter"
--- OUTSIDE RECORDS SUMMARY | ~2019-11-05 | XMS | Encounter Summary ---
Demographics + + + | Address | [address] | | | [place] [address] | + + + | Home Phone | | + + + | Preferred Language | Unknown | + + + | Marital Status | | + + + | Mandaen Affiliation | NRP | + + + | Race | White | + + + | Ethnic Group | Not or | + + + Author + + + | Author | [facility] | + + + | Organization | [facility] | + + + | Address | Unknown | + + + | Phone | Unavailable | + + + Support + + + + + | Name | Relationship | Address | Phone | + + + + + | Kole Willingham | [place] | [address] | | | | | [place], [place] | | | | | [address] | | + + + + + | Cami Sawyer | ECON | Unknown | | + + + + + Care Team Providers + +------+ + | Care Geologic Technician Name | Role | Phone | [...] | | 2011 | Only | [address] [facility] | [phone] | | | | | [address] | | | | | | [place], [place] | | | | | | [address] | | | +--------+ + + + [...] DEPT OF | [address] | [place], [place] | | | CARDIOLOGY | [address] | [address] | | + + + + + documented in this encounter Visit Diagnoses Not on filedocumented in this encounter"
--- OUTSIDE RECORDS SUMMARY | ~2019-11-05 | XMS | Encounter Summary ---
Demographics + + + | Address | [address] | | | [place] [address] | + + + | Home Phone | | + + + | Preferred Language | Unknown | + + + | Marital Status | | + + + | Yarsani Affiliation | Unknown | + + + | Race | Unknown | + + + | Ethnic Group | Unknown | + + + Author + + + | Author | [facility] | | | and [place] | + + + | Organization | [facility] | | | and [...] Team Providers + +------+ + | Care Consumer Safety Inspector Name | Role | Phone | + +------+ + PCP | Unavailable | + +------+ + Encounter Details +--------+ + + + + | Date | Type | Department | Care Team | Description | +--------+ + + + + | 10/09/ | Hospital | [facility] | Conversion | | | 2016 | Encounter | [facility] XRAY | Transaction, | | | | | [address] | Provider Unknown | | | | | [place], [place] | | | | | | [address] | (Fax) | | | | | [phone] | | | +--------+ + + + [...] mg by mouth | | 0 | 01/03/20 | | | (PRILOSEC) 40 MG | [...]
--- OUTSIDE RECORDS SUMMARY | ~2019-11-05 | XMS | Encounter Summary ---
Demographics + + + | Address | [address] | | | [place] [address] | + + + | Home Phone | | + + + | Preferred Language | Unknown | + + + | Marital Status | | + + + | Adventism Affiliation | NRP | + + + [...] [place], [place] | | | | | [address] | | + + + + + | Cami Sawyer | ECON | Unknown | | + + + + + Care Team Providers + +------+ + | Care Conservation Educator Name | Role | Phone | + [...] | Crohn's | Neel Vega MD | [address] | | | | | disease of | [facility] | [address] | | | | | both small | [facility] | [place] | | | | | and large | CARE [facility]IC | [place], [place] | | | | | intestine | [address] | [address] | | | | | without | 2ND | Phone: | | | | | complication | [place], | [phone] | | | | | s | [place] [address] | Fax: | | | | | | Phone: | [phone] | | | | | | [phone] | | | | | | | Fax: | | | | | | | [phone] | | +--------+--------+ + + + + Encounter Details +--------+---------+ + + + | Date | Type | Department | Care Team | Description | +--------+---------+ + + + | 07/27/ | Office | Digestive Health | Trice Marie MD | Rectovaginal fistula | | 2016 | Visit | Center at [facility] [address] | [address] | (Primary Dx); | | | | [facility] | [facility], | Crohn's disease of | | | | for Health and | [place] [address] | both small and large | | | | Healing, [address] | [phone] | intestine with | | | | [place], [place] | | complication (HCC) | | | | [address] | | | | | | [phone] | | | +--------+---------+ + + + [...] Dimple in her vagina seen by her PLATE GLASS POLISHER ~1995 For fibroids and vaginal bleeding, she [...] mg a day. No longer takes Remic idaz. Not on any other Crohn's medications. 1 [...] Referral patient, I spent 62 minutes of [id number] time, of which more than half the time was spent in counseling. 56 minute document review Taylor Mims MD - 07/28/2015 1:28 PM PDT 07/28/2015 [...] colonos copy was this past month at [facility] in [facility] with Dr. Krishna, which per patient was [...] popliteal and tibial arteries via leg incision 12/7/12 Appendectomy Cholecystectomy Curt & bso (total abdominal [...] alcohol or use illicit drugs. Lives in [place] with her . FH: Family History: None [...] Recommendations: 1) Review outside colonoscopy completed at [facility] - request has been sent 2) Plan for flex sig locally in [place] in 8 weeks time. Patient to send [...] + +--------+ + + + | [place] ANOSCOPY, DIAG | Routin | 08/04/2015 | [...]
--- OUTSIDE RECORDS SUMMARY | ~2019-11-05 | XMS | Encounter Summary ---
Demographics + + + | Address | [address] | | | [place] [address] | + + + | Home Phone | | + + + | Preferred Language | Unknown | + + + | Marital Status | | + + + | Jew Affiliation | NRP | + + + | Race | White | + + + | Ethnic Group | Not or | + + + Author + + + | Author | [facility] | + + + | Organization | [facility] | + + + | Address | Unknown | + + + | Phone | Unavailable | + + + Support + + + + + | Name | Relationship | Address | Phone | + + + + + | Kole Hartley | LAMONT | [address] | | | | | [place], [place] | | | | | [address] | | + + + + + | Cami Sawyer | ECON | Unknown | | + + + + + Care Team Providers + +------+ + | Care Roll Clamp Operator Name | Role | Phone | [...] [address] | | | | | [place], [place] | [address] | | | 05/13/ | | | [place], [place] | | | 2014 | | [phone] | [address] | | | | | | [phone] | | | | | | | | | | | | Jf Wiseman MD | | | | | | [address] | | | | | | [address] | | | | | | [place], [place] | | | | | | [address] | | | | | | [phone] | | | | | | | [...] might be different f rom the original. [facility] DEPARTMENT OF SURGERY EMERGENCY GENERAL SURGERY [...] continued to progress and is discharged to [facility] care. Mackenzie Hartley is discharged in stable [...] 100mls three times a day. Destination: Destination: [facility] Thank you for the opportunity to [...] might be different f rom the original. 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 S he [...] thrombosis while anticoagulated with warfarin transferred to [facility] from [facility] for management of retroperitoneal bleed. She is [...] know if she wants to see the [facility] GI team - Stage I pressure wound: [...] recommending [facility] since would be close to [facility] and she would benefit for aggres sive [...] with complication 03/12/2012 Jean-Claude Albrecht D.M.D., M.D. [facility] [address] [facility] [place] [address] This assessment and plan was formulated both [...] MD - 05/11/2014 8:51 AM PST . 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 S he [...] thrombosis while anticoagulated with warfarin transferred to [facility] from [facility] for management of retroperitoneal bleed. She is [...] know if she wants to see the [facility] GI team - Stage I pressure wound: [...] recommending [facility] since would be close to [facility] and she would benefit for aggres sive [...] with complication 03/12/2012 Jean-Claude Albrecht D.M.D., M.D. [facility] [address] [facility] [place] [address] This assessment and plan was formulated both [...] being active. Pt's has been at the [facility] supporting her. Pt is not caodaism but appreciates support. Intervention: Provided a listening presence and explored pt's anxieties, worries and hopes. Plan: Spiritual care remains available. 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 S he [...] thrombosis while anticoagulated with warfarin transferred to [facility] from [facility] for management of retroperitoneal bleed. She is [...] know if she wants to see the [facility] GI team - Stage I pressure wound: [...] recommending [facility] since would be close to [facility] and she would benefit for aggres sive [...] intestine with complication 03/12/2012 ANDREW VINCENT MD [facility] [address] [place] [address] This assessment and plan was [...] note might be different from the orig [facility]. 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 S he [...] thrombosis while anticoagulated with warfarin transferred to [facility] from [facility] for management of retroperitoneal bleed. She is [...] know if she wants to see the [facility] GI team - Stage I pressure wound: [...] recommending [facility] since would be close to [facility] and she would benefit for aggres sive [...] intestine with complication 03/12/2012 ANDREW VINCENT MD [facility] [address] [place] [address] This assessment and plan was [...] might be different from the orig inal. 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 S he [...] TROPONIN Imaging No new Cultures BLOOD CULTURE [facility] (no units) Date Value Range Status 04/26/2014 [...] thrombosis while anticoagulated with warfarin transferred to [facility] from [facility] for management of retroperitoneal bleed. She is [...] know if she wants to see the [facility] GI team - Stage I pressure wound: [...] recommending [facility] since would be close to [facility] and she would benefit for aggres sive [...] intestine with complication 03/12/2012 ANDREW VINCENT MD [facility] [address] [facility] [place] [address] This assessment and plan was formulated [...] this note might be different from the [facility] Department of Surgery Progress Note Author: Andrew Vincent MD General Surgery Resident Attending Physician: Jf Wiseman MD GENERAL SURGERY Progress Note: Hospital Day #: 14 ATTENDING: Jf Wiseman MD Identification: Mackenzie Hartley is a 58 year old female with COPD, Crohn's disease, chronic pa in, and 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 S he [...] TROPONIN Imaging No new Cultures BLOOD CULTURE [facility] (no units) Date Value Range Status 04/26/2014 [...] thrombosis while anticoagulated with warfarin transferred to [facility] from [facility] for management of retroperitoneal bleed. She is [...] intestine with complication 03/12/2012 ANDREW VINCENT MD [facility] [address] [place] [address] This assessment and plan was formulated both [...] note might be different from the orig [facility]. 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 S he [...] TROPONIN Imaging No new Cultures BLOOD CULTURE [facility] (no units) Date Value Range Status 04/26/2014 [...] thrombosis while anticoagulated with warfarin transferred to [facility] from [facility] for management of retroperitoneal bleed. She is [...] continued DHT,TF - Diet: NPO - per SENSOR SPECIALIST, high risk of aspiration - continue ice [...] intestine with complication 03/12/2012 ANDREW VINCENT MD [facility] [address] [place] [address] This assessment and plan was formulated both [...] might be different from the orig inal. 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 S he [...] TROPONIN Imaging No new Cultures BLOOD CULTURE [facility] (no units) Date Value Range Status 04/26/2014 [...] thrombosis while anticoagulated with warfarin transferred to [facility] from [facility] for management of retroperitoneal bleed. She is [...] intestine with complication 03/12/2012 ANDREW VINCENT MD [facility] [address] [place] [address] This assessment and plan was [...] the resident s note. PHIL VARMA MD [facility] [address] [facility] [place] [address] Rosa Sauer MD - 05/04/2014 8:26 AM [...] at referring hospital. She was transferred to [facility] f or active hemorrhage and underwent IR [...] rounds. Rosa Reynoso, R2 SICU/Trauma Personal pager: [phone] Team pager: [phone] Angeles Acevedo MD - 05/04/2014 7:08 AM PST [facility] DEPARTMENT OF SURGERY EGS ICU Progress Note Division of Trauma and Critical Care ID: Mackenzie Hartley is a 58 year old female with COPD, Crohn's disease, chronic pain, and 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 while anticoagulated with warfarin transferre d to [facility] from [facility] for management of retroperitoneal bleed. She is [...] mg, 20 mg, feeding tube, BID, Jf Wismean MD, 20 mg at 0 05/03/142154 furosemide [...] thrombosis while anticoagulated with warfarin transferred to [facility] from [facility] for management of retroperitoneal bleed. She has required repeated transfers to ICU for respiratory status. She has been diuresed ap propriately while in the ICU and O2 needs have decreased significantly. Will transfer to [facility] or, but need to keep a close [...] Hannah MD General Surgery Resident, R3 Pager [phone] [facility] [place] [address] [address] [facility] [address] Jf Jones MD - 05/03/2014 9:38 AM [...] - TF at goal, + BM Dysphagia: SENSOR SPECIALIST following- remains NPO Anasarca: compression socks,. Goal [...] Call team 01/11 for questions: Team Pager [phone] ATTENDING ADDENDUM: I saw and examined Mackenzie [...] Erin Christensen PA-C. Jf Wiseman MD FACS industrial radiographer Division of Trauma, Critical Care, and Acute Care Surgery [phone] Elda Emmanuel MD - 05/03/2014 3:49 AM PST EMERGENCY GENERAL SURGERY ICU PROGRESS NOTE: Attending Physician: Jf Wiseman MD 05/03/2014 ID: Mackenzie Hartley is a 58 year old female with COPD, Crohn's disease, chronic pain, and coagulopa thy resulting in splenic artery thrombosis while anticoagulated with warfarin transferred to [facility] from [facility] for management of retroperitoneal bleed. She is [...] thrombosis while anticoagulated with warfarin transferred to [facility] from [facility] for management of retroperitoneal bleed. 1. Neuro: [...] this patient encounter. Elda Glez MD Pager [phone] Plastic Surgery R2 [facility] Diagnoses: 555.2 Crohn's disease of both small [...] holding Q6W Remicade- will consult hematology in [facility] regarding of timing of resuming remicade Severe malnutrition: - TF at goal, + BM, Dysphagia: SENSOR SPECIALIST following- remains NPO Anasarca: compression socks,. Goal [...] Call team 01/11 for questions: Team Pager [phone] ATTENDING ADDENDUM: I saw and examined Mackenzie [...] Marge Harris PA-C. Jf Wiseman MD FACS industrial radiographer Division of Trauma, Critical Care, and Acute Care Surgery [phone] GIAHarAngeles oglesby MD - 05/02/2014 6:55 AM PST [facility] DEPARTMENT OF SURGERY EGS ICU Progress Note Division of Trauma and Critical Care ID: Mackenzie Hartley is a 58 year old female with COPD, Crohn's disease, chronic pain, and 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 while anticoagulated with warfarin transferre d to [facility] from [facility] for management of retroperitoneal bleed. She is [...] thrombosis while anticoagulated with warfarin transferred to [facility] from [facility] for management of retroperitoneal bleed. Neuro: Minimize [...] Hannah MD General Surgery Resident, R3 Pager [phone] [place] [phone] arris, Angeles Hanna MD - 05/02/2014 2:14 [...] Hannah MD General Surgery Resident, R3 Pager [phone] ean-Claude Albrecht DMD, MD - 05/01/2014 10:36 AM PST [facility] DEPARTMENT OF SURGERY EGS Progress Note ID: Mackenzie Hartley is a 58 year old female with COPD, Crohn's disease, chronic pain, and 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 while anticoagulated with warfarin transferre d to [facility] from [facility] for management of retroperitoneal bleed. She is [...] thrombosis while anticoagulated with warfarin transferred to [facility] from [facility] for management of retroperitoneal bleed. Overall, she is improving. However, remains tachycardic with leukocytosis - WBC [address] 05/01 showed - moderate ascites and pleural effusions and hematoma. Neuro: dilaudid IV PRN Speech: following continue daily to eval swallow CV: HD stable L AUTOMATIC BANDSAW TENDER PSA resolved Continue IV lasix today 20 [...] acute care hospitalization Jean-Claude Albrecht D.M.D., M.D. [facility] [address] [facility] [place] [address] Jf Jones MD - 04/30/2014 11:08 AM PST Trauma / Surgical Critical Care Service - Progress Note Name: MCAKENZIE HARTLEY Date: 04/30/2014 Time: 9:27 AM Author: Marge Harris PA-C HPI: 58 y.o. female admitted on 04/23/2014 10:39 AM with Crohn's, COPD, chronic pain, recurr ent UTIs, and known splenic artery thrombosis s/p retroperitoneal hemorrhage on therapeutic heparin infusion. Surgical exploration at referring hospital. She was transferred to [facility] fo r active hemorrhage and underwent IR [...] malnutrition: - pulled DHT- refusing replacement. Await SENSOR SPECIALIST eval if passes swallow will give chance to prove adequate po intake. Expect will require TFs again Dysphagia: await SENSOR SPECIALIST eval today. Cont meds and feed via [...] Call team 01/11 for questions: Team Pager [phone] ATTENDING ADDENDUM: I saw and examined Mackenzie [...] Marge Harris PA-C. Jf Wiseman MD FACS industrial radiographer Division of Trauma, Critical Care, and Acute Care Surgery [phone] Angeles Acevedo MD - 04/30/2014 1:18 AM PST [facility] DEPARTMENT OF SURGERY EGS ICU Progress Note Division of Trauma and Critical Care ID: Mackenzie Hartley is a 58 year old female with COPD, Crohn's disease, chronic pain, and 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 while anticoagulated with warfarin transferre d to [facility] from [facility] for management of retroperitoneal bleed. She is [...] thrombosis while anticoagulated with warfarin transferred to [facility] from [facility] for management of retroperitoneal bleed. Overall, she is improving. However, remains tachycardic with leukocytosis -- difficult to t ease out if this is secondary to asplenia. Will obtain CT abd pelvis today to clarify. Neuro: dilaudid IV PRN and intermittent versed for sedation CV: HD stable L AUTOMATIC BANDSAW TENDER PSA resolved Pulm: titrate to O2 >92% [...] Hannah MD General Surgery Resident, R3 Pager [phone] [facility] [place] [address] [address] [facility] [address] Aravind Morales MD - 04/29/2014 11:43 AM PSTICU Attending: I saw and examined Mackenzie Hartley ([id number]) with Erin Christensen PA-C on 04/29/14 and [...] of time documented by Kaci Massey MD Robotic Welding Operator Trauma, Critical Care & Acute Care Surgery [...] at referring hospital. She was transferred to [facility] fo r active hemorrhage. Hospital Day #6 [...] resolving cont current H2O via DHT Dysphagia: SENSOR SPECIALIST consulted, ice chips only. Cont meds and [...] Call team 01/11 for questions: Team Pager [phone] Chelly Blum MD,M PH - 04/28/2014 3:03 [...] at referring hospital. She was transferred to [facility] fo r active hemorrhage. Hospital Day #5 [...] Hyernatremia: resolving, reduce H2O to 30ml/hr Dysphagia: SENSOR SPECIALIST consulted, ice chips only. Cont meds and [...] Call team 01/11 for questions: Team Pager [phone] Angeles Acevedo MD - 04/28/2014 5:18 AM PST [facility] DEPARTMENT OF SURGERY EGS ICU Progress Note Division of Trauma and Critical Care ID: Mackenzie Hartley is a 58 year old female with COPD, Crohn's disease, chronic pain, and 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 while anticoagulated with warfarin transferre d to [facility] from [facility] for management of retroperitoneal bleed. She is s/p ex lap, splenectomy, and packing with lap pads at OSH and from reopening of laparotomy, evacua tion of 2-3 L of intraabdominal hematoma, closure of open abdomen SUBJECTIVE: Extubated, neurologically doing much better. 3 L NC Underwent successful thrombin injection of L AUTOMATIC BANDSAW TENDER pseudoaneurysm by IR 04/26 MEDICATIONS: Current facility-administered [...] thrombosis while anticoagulated with warfarin transferred to [facility] from [facility] for management of retroperitoneal bleed. Neuro: dilaudid IV PRN and intermittent versed for sedation CV: HD stable Per vascular: arterial duplex of L AUTOMATIC BANDSAW TENDER to assess for stability of PSA shows [...] Hannah MD General Surgery Resident, R3 Pager [phone] [facility] [place] [address] [place] [facility] [place] [address] Xin Irizarry M D - 04/27/2014 11:55 [...] diagnosti c imaging and laboratory study results [facility] DEPARTMENT: [id number] - HEM FACULTY [facility] Place of Service: - Inpatient Date of Service: 04-27-2014 Modifiers: GC - Resident Involved Suggested CPT: 75742 - Initial, Comp; Mod complex 50 min XIN AGEE MD [facility] [address] [facility] [address] [place] [address] wpriya Rudy Markham Adriel - 04/27/2014 11:55 AM PST Hematology Consult Progress Note Primary Service: EGS Primary Attending: Jf Wiseman MD Hospital Length of Stay: 4 Interval Events: - extubated - thrombin injection to AUTOMATIC BANDSAW TENDER pseudoaneurysm - heparin gtt started last night Subjective: Patient is unable to provide history as she remains encephalopathic. Did speak with her , who confirmed history obtained in initial heme consult note. States she givens s been on warfarin since her 2011 [facility] admission with no known thrombotic events since [...] assessme nt and plan. Rudy Sarmiento, DO [facility] Internal Medicine PGY3 Pager [phone] Mirela Josue MD - 04/27/2014 10:49 AM PST [facility] Department of Surgery Progress Note Author: Lucy [...] underwent successful thrombin injection of the left AUTOMATIC BANDSAW TENDER pseudoaneurysm by IR last night. Heparin restarted [...] ultraso und guided thrombin injection of left AUTOMATIC BANDSAW TENDER pseudoanuerysm. Will order arterial duplex of left AUTOMATIC BANDSAW TENDER to assess for stability of pseudoaneurysm Monitor [...] - hemorrhage vs HCAP LUCY MARKS MD [address] [facility] [address] [place] [address] This assessment and plan was formulated both independently and in conjunction with the [facility] ular Surgery Team as well as the attending provider of record above regarding management of this patient and their medical issues. It is accurate to the best of my knowledge, and is s ubject to modification based on clinical developments, new data, or final imaging results. [facility] staff I saw and evaluated the patient. I agree with the findings and the plan of care as petern laxmi in the resident s note. Left femoral pseudoaneurysm appears resolved. Stable from [facility] standpoint. No further imaging required unless clinical status changes. Mirela Thompson M.D. [facility] Vascular Surgery [address] [facility] [place] [address] Email: [email or web address] Jf Jones MD - 04/27/2014 8:03 AM [...] at referring hospital. She was transferred to [facility] fo r active hemorrhage. Hospital Day #4 [...] H2O Hyernatremia: water 100ml/hr via DHT Dysphagia: SENSOR SPECIALIST consulted, ice chips only JULIANE: ATN from [...] Call team 01/11 for questions: Team Pager [phone] ATTENDING ADDENDUM: I saw and examined Mackenzie [...] Erin Christensen PA-C. Jf Wiseman MD FACS industrial radiographer Division of Trauma, Critical Care, and Acute Care Surgery [phone] aElda tejada MD - 04/27/2014 4:52 AM PST EMERGENCY GENERAL SURGERY ICU PROGRESS NOTE: Attending Physician: Jf Wiseman MD 04/27/2014 ID: Mackenzie Hartley is a 58 year old female with COPD, Crohn's disease, chronic pain, and coagulopa thy resulting in splenic artery thrombosis while anticoagulated with warfarin transferred to [facility] from [facility] for management of retroperitoneal bleed. She is [...] HR EVENTS: - Incidentally found to have AUTOMATIC BANDSAW TENDER pseudoaneurysm, injected with thrombin by IR - [...] thrombosis while anticoagulated with warfarin transferred to [facility] from [facility] for management of retroperitoneal bleed. Neuro: oxy [...] this patient encounter. Elda Glez MD Pager [phone] Plastic Surgery R2 Formerly [facility] Diagnoses: 555.2 Crohn's disease of both small [...] Attending:Dr. Lenny Calhoun MD (Fellow)/pager: Dr. Vang [phone] Medications Procedure Meds: Dilaudid IV 0.5mg Midazolam [...] at referring hospital. She was transferred to [facility] fo r active hemorrhage. Hospital Day #4 [...] Call team 01/11 for questions: Team Pager [phone] Angeles Acevedo MD - 04/26/2014 5:24 AM PST [facility] DEPARTMENT OF SURGERY EGS ICU Progress Note Division of Trauma and Critical Care ID: Mackenzie Hartley is a 58 year old female with COPD, Crohn's disease, chronic pain, and 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 while anticoagulated with warfarin transferre d to [facility] from [facility] for management of retroperitoneal bleed. She is [...] thrombosis while anticoagulated with warfarin transferred to [facility] from [facility] for management of retroperitoneal bleed. Neuro: dilaudid [...] Hannah MD General Surgery Resident, R3 Pager [phone] [facility] & [place] [address] [facility] [address] ithya Bailey MD - 04/25/2014 6:40 AM PSTTSICU Attending 04/25/14 58 yo woman critically ill with complex surgical and medical history, transferred to [facility] intraabdominal and retroperitoneal hemorrhage 2 days ago. 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 She is [...] thrombosis while anticoagulated with warfarin transferred to [facility] from [facility] for management of retroperitoneal bleed. Neuro: dilaudid [...] for 5 days. Dispo: continue critical care. Anegles Hannah MD General Surgery Resident, R3 Pager [phone] [facility] & [place] [address] Rich Pappas MD - 04/24/2014 9:21 AM [...] extubate Initial surgical contact: Miladis at pager [phone] Nithya Andres MD - 04/24/2014 5:25 AM [...] exploration at referring hospital. IR embolization at [facility]. 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 She is [...] thrombosis while anticoagulated with warfarin transferred to [facility] from [facility] for management of retroperitoneal bleed. 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 MEDICATIONS: Fentanyl IV 150 mcg Midazolam IV [...] | + +--------+ + + + | [facility] PORTABLE | Routin | 04/27/2014 | [...] | + + + + + | [facility] | [address] | [place] [address] | | | JANELL SHARP | BERTRAM [...] + | [facility] | [address] | [place], [place] | | | [facility] | [address] | [address] | | | TESTS | | | [...] [facility] | [address] | [place] [address] | | | SERVICES, CORE | PARK [...] + | [facility] | [address] | [place] [address] | | | SERVICES, CORE | PARK [...] | | | LABORATORY | | | BURKINAN | | | SERVICES, | | | [...] | + + + + + | [facility] | [address] [facility] | [place] [address] | | | SERVICES, JANELL | BERTRAM [...] - MARQU[facility] | [address] | [place], [place] | | | [facility] | [facility] | [address] | | | TESTS | | | [...] (H) | 60 - 99 mg/dL | [facility] - | | | GLUCOSE, | [...] MARILYN | [address] | [place], [place] | | | [facility] | [address] | [address] | | | TESTS | | | [...] | + + + + + | [facility] | [address] | [place] [address] | | | SERVICES, CORE | [address] | | | + + + + + MAGNESIUM, PLASMA (05/12/2014 1:07 AM PST) + +---------+ + + + | Component | Value | Ref Range | Performed | Pathologist | | | | | At | Signature | + +---------+ + + + | MAGNESIUM,P | 1.5 (L) | 1.8 - 2.5 mg/dL | [facility] | | | [facility] | | | [...] | + + + + + | [facility] | [address] | [place] [address] | | | SERVICES, CORE | BERTRAM [...] | | | LABORATORY | | | BURKINAN | | | SERVICES, | | | [...] | + + + + + | [facility] | [address] | [place] [address] | | | JANELL SHARP | BERTRAM [...] | + + + + + | [facility] | [address] | [place] [address] | | | SERVICES, JANELL | BERTRAM [...] - MARQUAM | [address] | [place], [place] | | | [facility] | [address] | [address] | | | TESTS | | | [...] SANDERS | [address] | [place], [place] | | | [facility] [place] | [address] | [address] | | | TESTS | | | [...] + + | [facility] | [address] [facility] | [place] [address] | | | SERVICES, CORE | PARK [...] | + + + + + | [facility] | [address] | [place] [address] | | | SERVICES, CORE | BERTRAM [...] | | | LABORATORY | | | BURKINAN | | | SERVICES, | | | [...] the MDRD equation recommended by the | [facility] | | National Kidney Disease Education Program. [...] [facility] | [address] | [place] [address] | | | SERVICES, CORE | PARK [...] | + + + + + | [facility] | [address] | [place] [address] | | | SERVICES, JANELL | BERTRAM [...] (H) | 60 - 99 mg/dL | [facility] - | | | GLUCOSE, | [...] SANDERS | [address] | [place], [place] | | | [facility] | [facility] | [address] | | | TESTS | | | [...] SANDERS | [address] | [place], [place] | | | [facility] [place] | [address] | [address] | | | TESTS | | | [...] | | + +---------+ + + | [facility] DEPARTMENT OF | | | | [...] MARILYN | [address] | [place], [place] | | | [facility] | [address] | [address] | | | TESTS | | | [...] (H) | 60 - 99 mg/dL | [facility] - | | | GLUCOSE, | [...] SANDERS | [address] | [place], [place] | | | [facility] | [address] | [address] | | | TESTS | | | [...] | + + + + + | [facility] | [address] | [place] [address] | | | SERVICES, CORE | PARK [...] LABORATORY | | | | | | ARON | | | | | | JANELL | | + +---------+ + + + + + | Specimen | + + | Blood - Blood | + + + + + + + | Performing | Address | City/State/Zipcode | Phone Number | | Organization | | | | + + + + + | [facility] | [address] [facility] | [place] [address] | | | SERVICES, CORE | BERTRAM [...] | | | LABORATORY | | | BURKINAN | | | SERVICES, | | | [...] the MDRD equation recommended by the | [facility] | | National Kidney Disease Education Program. [...] [facility] | [address] | [place] [address] | | | SERVICES, CORE | BERTRAM [...] [facility] | [address] | [place] [address] | | | ARON, JANELL | BERTRAM [...] (H) | 60 - 99 mg/dL | [facility] - | | | GLUCOSE, | [...] MARQUAM | [address] | [place], [place] | | | [facility] [place] | [facility] | [address] | | | TESTS | | | [...] SANDERS | [address] | [place], [place] | | | [facility] | [address] | [address] | | | TESTS | | | [...] MARQUAM | [address] | [place], [place] | | | [facility] | [facility] | [address] | | | TESTS | | | [...] | + + + + + | [facility] | [address] | [place] [address] | | | SERVICES, CORE | BERTRAM [...] [facility] | [address] | [place] [address] | | | SERVICES, CORE | PARK [...] | | | LABORATORY | | | BURKINAN | | | SERVICES, | | | [...] | + + + + + | [facility] | [address] | [place] [address] | | | SERVICES, CORE | PARK [...] | + + + + + | [facility] | [address] | [place] [address] | | | SERVICES, CORE | BERTRAM [...] MARGOPIAM | [address] | [place], [place] | | | [facility] [place] | [address] | [address] | | | TESTS | | | | + + + + + CAPILLARY BLOOD GLUCOSE (NO CHG), POC (05/08/2014 6:21 AM PST) + +-------+ [...] MARILYN | [address] | [place], [place] | | | [facility] | [address] | [address] | | | TESTS | | | [...] [facility] | [address] | [place] [address] | | | SERVICES, CORE | PARK [...] | + + + + + | [facility] | [address] | [place] [address] | | | SERVICES, CORE | PARK [...] | | | LABORATORY | | | BURKINAN | | | SERVICES, | | | [...] | + + + + + | [facility] | [address] | [place] [address] | | | SERVICES, JANELL | BERTRAM [...] | + + + + + | [facility] | [address] | [place] [address] | | | SERVICES, JANELL | BERTRAM [...] | | | POC | | | [place] | | | | | | [...] MARQUAM | [address] | [place], [place] | | | [facility] | [address] | [address] | | | TESTS | | | | + + + + + CAPILLARY BLOOD GLUCOSE (NO CHG), POC (05/07/2014 6:08 AM PST) + +---------+ + + + | Component | Value | Ref Range | Performed | Pathologist | | | | | At | Signature | + +---------+ + + + | BLOOD | 112 (H) | 60 - 99 mg/dL | [facility] - | | | GLUCOSE, | [...] MARILYN | [address] | [place], [place] | | | [facility] | [address] | [address] | | | TESTS | | | [...] | + + + + + | [facility] | [address] | [place] [address] | | | SERVICES, CORE | PARK [...] | + + + + + | [facility] | [address] | [place] [address] | | | SERVICES, CORE | PARK [...] | | | LABORATORY | | | BURKINAN | | | SERVICES, | | | [...] the MDRD equation recommended by the | [facility] | | National Kidney Disease Education Program. [...] | + + + + + | [facility] | [address] [facility] | [place] [address] | | | JANELL SHARP | BERTRAM [...] | + + + + + | [facility] | [address] | [place] [address] | | | SERVICES, JANELL | BERTRAM [...] SANDERS | [address] | [place], [place] | | | [facility] | [address] | [address] | | | TESTS | | | [...] | + + + + + | [facility] | [address] | [place] [address] | | | SERVICES, CORE | BERTRAM [...] MARQUAM | [address] | [place], [place] | | | [facility] | [address] | [address] | | | TESTS | | | [...] - DAVIDAM | [address] | [place], [place] | | | [place] [facility] | [address] | [address] | | | TESTS | | | [...] [facility] | [address] | [place] [address] | | | SERVICES, CORE | PARK [...] LABORATORY | [address] | [place] [address] | | | SERVICES, CORE | PARK [...] | | | LABORATORY | | | BURKINAN | | | SERVICES, | | | [...] | + + + + + | [facility] | [address] | [place] [address] | | | SERVICES, JANELL | BERTRAM [...] | + + + + + | [facility] | [address] [facility] | [place] [address] | | | JANELL SHARP | BERTRAM [...] | + + + + + | [facility] | [address] | [place] [address] | | | SERVICES, CORE | PARK [...] | + + + + + | [facility] | [address] | [place] [address] | | | SERVICES, CORE | PARK [...] LABORATORY | | | | | | ARON | | | | | | JANELL | | + +---------+ + + + + + | Specimen | + + | Blood - Blood | + + + + + + + | Performing | Address | City/State/Zipcode | Phone Number | | Organization | | | | + + + + + | [facility] | [address] [facility] | [place] [address] | | | SERVICES, CORE | BERTRAM [...] | | | LABORATORY | | | BURKINAN | | | SERVICES, | | | [...] the MDRD equation recommended by the | [facility] | | National Kidney Disease Education Program. [...] | + + + + + | [facility] | [address] | [place] [address] | | | SERVICES, CORE | PARK [...] (H) | 0.90 - 1.20 INR | [facility] | | | | | | LABORATORY [...] | + + + + + | [facility] | [address] | [place] [address] | | | SERVICES, CORE | [address] | | | + + + + + WELCOME TO [facility] (VIDEO) (05/04/2014 2:18 PM PST) + +--------+ [...] | + + + + + | [facility] | [address] | [place], [place] | | | [facility] | [address] | [address] | | + + + + + [...] | + + + + + | [facility] | [address] | [place] [address] | | | SERVICES, CORE | PARK [...] | + + + + + | [facility] | [address] | [place] [address] | | | SERVICES, CORE | BERTRAM [...] | | | | | isaías / TANIA | | | | | [...] [facility] | [address] | [place] [address] | | | SERVICES, CORE | PARK [...] | + + + + + | [facility] | [address] | [place] [address] | | | SERVICES, CORE | BERTRAM [...] | | | LABORATORY | | | BURKINAN | | | SERVICES, | | | [...] the MDRD equation recommended by the | [facility] | | National Kidney Disease Education Program. [...] | + + + + + | [facility] | [address] | [place] [address] | | | SERVICES, CORE | PARK [...] (H) | 0.90 - 1.20 INR | [facility] | | | | | | LABORATORY [...] [facility] | [address] | [place] [address] | | | SERVICES, CORE | PARK [...] | + + + + + | [facility] | [address] | [place] [address] | | | SERVICES, CORE | [address] | | | + + + + + TELMA FARAH (05/03/2014 8:47 PM PST) + + + [...] [facility] | [address] | [place] [address] | | | SERVICES, CORE | PARK [...] + + | [facility] | [address] [facility] | [place] [address] | | | SERVICES, CORE | PARK [...] | + + + + + | [facility] | [address] | [place] [address] | | | SERVICES, CORE | BERTRAM [...] (H) | 60 - 99 mg/dL | [facility] - | | | GLUCOSE, | [...] + + + | [facility] | [address] | [place], [place] | | | [facility] | [address] | [address] | | | TESTS | | | [...] | | | | | | Kirstie Ruffincourt | | | | + + + + + + + + | Specimen | + + | | + + + +---------+ + + | Performing | Address | City/State/Zipcode | Phone Number | | Organization | | | | + +---------+ + + | [facility] DEPARTMENT OF | | | | [...] [facility] | [address] | [place] [address] | | | ARON, JANELL | PARK [...] 2.5 mg/dL | [facility] | | | [facility] | | | [...] | + + + + + | [facility] | [address] [facility] | [place] [address] | | | SERVICES, CORE | BERTRAM [...] | | | LABORATORY | | | BURKINAN | | | SERVICES, | | | [...] | + + + + + | [facility] | [address] | [place] [address] | | | SERVICES, CORE | PARK [...] | + + + + + | [facility] | [address] | [place] [address] | | | SERVICES, CORE | [address] | | | + + + + + MAGNESIUM, PLASMA (05/02/2014 10:34 PM PST) + +-------+ + + + | Component | Value | Ref Range | Performed | Pathologist | | | | | At | Signature | + +-------+ + + + | MAGNESIUM,P | 2.0 | 1.8 - 2.5 mg/dL | [facility] | | | [facility] | | | [...] | + + + + + | [facility] | [address] | [place] [address] | | | SERVICES, CORE | PARK [...] | | | LABORATORY | | | BURKINAN | | | SERVICES, | | | [...] the MDRD equation recommended by the | [facility] | | National Kidney Disease Education Program. [...] | + + + + + | [facility] | [address] [facility] | [place] [address] | | | JANELL SHARP | BERTRAM [...] | | | LABORATORY | | | BURKINAN | | | SERVICES, | | | [...] | + + + + + | [facility] | [address] | [place] [address] | | | SERVICES, CORE | [address] | | | + + + + + ELLIOT ROTH (05/02/2014 10:08 AM PST) + +-------+ + [...] [facility] | [address] | [place], [place] | | | THERAPY | [address] | [address] | | + + + + + [...] + | [facility] | [address] | [place], [place] | | | THERAPY | [address] | [address] | | + + + + + [...] | + + + + + | [facility] | [address] | [place] [address] | | | SERVICES, CORE | BERTRAM [...] [facility] | [address] | [place] [address] | | | SERVICES, CORE | PARK [...] | + + + + + | [facility] | [address] [facility] | [place] [address] | | | ARON, JANELL | BERTRAM [...] | | | LABORATORY | | | BURKINAN | | | SERVICES, | | | [...] | + + + + + | [facility] | [address] | [place] [address] | | | SERVICES, CORE | PARK [...] [facility] | [address] | [place] [address] | | | SERVICES, CORE | BERTRAM [...] + + + + + + | [facility] | [address] | ms | [facility] DEPT [...] At | + + + | | [facility] DEPT OF | | | CARDIOLOGY | [...] DEPT OF | [address] | [place], [place] | | | CARDIOLOGY | [address] | [address] | | + + + + + X-RAY PORTABLE CHEST 1 VIEW (05/02/2014 2:11 AM PST) + + + + + + | Component | Value | Ref Range | Performed | Pathologist | | | | | At | Signature | + + + + + + | X-RAY | EXAM: AR CHEST 1 VIEW | | | | [...] LULU | | | | | | PRIMACK 05/02/2014 11:05 | | | | | | AM | | | | + + + + + + + + | Specimen | + + | | + + + +---------+ + + | Performing | Address | City/State/Zipcode | Phone Number | | Organization | | | | + +---------+ + + | [facility] DEPARTMENT OF | | | | [...] | + + + + + | [facility] | [address] | [place] [address] | | | SERVICES, JANELL | BERTRAM [...] (H) | 60 - 99 mg/dL | [facility] - | | | GLUCOSE, | [...] SANDERS | [address] | [place], [place] | | | [facility] | [facility] | [address] | | | TESTS | | | [...] MARILYN | [address] | [place], [place] | | | [facility] | [address] | [address] | | | TESTS | | | [...] | + + + + + | [facility] | [address] | [place] [address] | | | SERVICES, JANELL | [address] | | | + + + + + X-RAY PORTABLE CHEST 1 VIEW (05/01/2014 3:37 AM PST) + + + + + + | Component | Value | Ref Range | Performed | Pathologist | | | | | At | Signature | + + + + + + | X-RAY | EXAM: AR CHEST 1 VIEW | | | | [...] Bilateral | | | | | | vxtli-eu-ovevpkay | | | | | | pleural [...] | + + + + + | [facility] | [address] | [place] [address] | | | SERVICES, CORE | PARK [...] | + + + + + | [facility] | [address] [facility] [address] [address] | [place] [address] | | | SERVICES, CORE | PARK [...] | | | LABORATORY | | | BURKINAN | | | SERVICES, | | | [...] the MDRD equation recommended by the | [facility] | | National Kidney Disease Education Program. Estimated GFR | LABORATORY | | Interpretive Information: <60 mL/min/1.73 sq m | JANELL SHARP | | Chronic Kidney Disease <15 mL/min/1.73 [...] | + + + + + | [facility] | [address] | [place] [address] | | | JANELL SHARP | BERTRAM [...] | + + + + + | [facility] | [address] | [place] [address] | | | SERVICESJANELL | [address] [...] + | [facility] | [address] | [place], [place] | | | [facility] | [address] | [address] | | | TESTS | | | [...] | | | | | | JOSIANE SANDY | | | | | | MDAuthor: [...] | | + +---------+ + + | [facility] DEPARTMENT OF | | | | [...] JULIO | | | | | | ERNIE AKERSBCHAuthor: | | | | | | SAMIRA [...] | | + +---------+ + + | [facility] DEPARTMENT OF | | | | | RADIOLOGY | | | | + +---------+ + + X-RAY PORTABLE CHEST 1 VIEW (04/30/2014 9:22 AM PST) + + + + + + | Component | Value | Ref Range | Performed | Pathologist | | | | | At | Signature | + + + + + + | X-RAY | STUDY: AR CHEST 1 VIEW | | | | [...] | | + +---------+ + + | [facility] DEPARTMENT OF | | | | [...] | + + + + + | [facility] | [address] | [place] [address] | | | SERVICES, CORE | BERTRAM [...] | + + + + + | [facility] | [address] [facility] [address] [address] | [place] [address] | | | SERVICES, CORE | BERTRAM [...] [facility] | [address] | [place] [address] | | | JANELL SHARP | [address] [...] | | | LABORATORY | | | BURKINAN | | | SERVICES, | | | [...] [facility] | [address] | [place] [address] | | | SERVICES, CORE | PARK [...] | | | LABORATORY | | | BURKINAN | | | SERVICES, | | | [...] (H) | 4 - 11 mmol/L | [facility] | | | GAP(ALB | | | [...] | + + + + + | [facility] | [address] | [place] [address] | | | SERVICES, CORE | BERTRAM [...] [facility] | [address] | [place], [place] | | | [facility] | [facility] | [address] | | | TESTS | | | [...] [facility] | [address] | [place] [address] | | | SERVICES, CORE | BERTRAM [...] + | [facility] | [address] | [place] [address] | | | SERVICES, CORE | PARK [...] (H) | 60 - 99 mg/dL | [facility] | | | PLASMA | | | [...] | | | LABORATORY | | | BURKINAN | | | SERVICES, | | | [...] | + + + + + | [facility] | [address] | [place] [address] | | | SERVICES, JANELL | BERTRAM [...] | + + + + + | [facility] | [address] [facility] | [place] [address] | | | SERVICES, CORE | BERTRAM [...] | + + + + + | [facility] | [address] | [place] [address] | | | JANELL SHARP | [address]ERTRAM [...] (H) | 60 - 99 mg/dL | [facility] - | | | GLUCOSE, | [...] [facility] | [address] | [place], [place] | | | [facility] | [address] | [address] | | | TESTS | | | [...] [facility] | [address] | [place] [address] | | | SERVICES, CORE | PARK [...] [facility] | [address] | [place] [address] | | | SERVICES, CORE | PARK [...] [facility] | [address] | [place] [address] | | | ARON, JANELL | BERTRAM [...] [facility] | [address] | [place] [address] | | | SERVICES, CORE | PARK [...] | | | LABORATORY | | | BURKINAN | | | SERVICES, | | | [...] | + + + + + | [facility] | [address] [facility] | [place] [address] | | | SERVICES, CORE | BERTRAM [...] Dalteparin, LMWH: 0.70 - 1.20 U/mL | ARON, CORE | | Tinzaparin, LMWH: Therapeutic range [...] | + + + + + | [facility] | [address] | [place] [address] | | | JANELL SHARP | BERTRAM [...] | + + + + + | [facility] | [address] | [place] [address] | | | SERVICES, CORE | PARK [...] | | + +---------+ + + | [facility] DEPARTMENT OF | | | | [...] | + + + + + | [facility] | [address] | [place] [address] | | | SERVICES, JANELL | BERTR[address] | | | + [...] + + + | [facility] | [address] | [place], [place] | | | [facility] | [address] | [address] | | | TESTS | | | | + + + + + X-RAY ABD LTD FEEDING TUBE EVAL PORTABLE (04/27/2014 10:33 AM PST) + + + + + + | Component | Value | Ref Range | Performed | Pathologist | | | | | At | Signature | + + + + + + | X-RAY ABD | STUDY: AR ABD LTD | | | | | LTD FEEDING | FEEDING TUBE EVAL | | | | | TUBE EVAL | 04/27/14 10:33:00 | | | | | PORTABLE | HISTORY: Dobbhoff tube. | | | | | | [...] [facility] | [address] | [place] [address] | | | ARON, JANELL | PARK [...] | + + + + + | [facility] | [address] | [place] [address] | | | SERVICES, CORE | BERTRAM [...] | + + + + + | [facility] | [address] | [place] [address] | | | SERVICES, CORE | BERTRAM [...] [facility] | [address] | [place] [address] | | | SERVICES, CORE | BERTRAM [...] | | | LABORATORY | | | BURKINAN | | | SERVICES, | | | [...] | + + + + + | [facility] | [address] | [place] [address] | | | SERVICES, CORE | PARK [...] [facility] | [address] | [place] [address] | | | SERVICES, CORE | PARK [...] | + + + + + | [facility] | [address] | [place] [address] | | | ARON, JANELL | [address] | | | + + + + + APTT (ACT. PART. THROMBO TIME) (04/26/2014 10:02 PM PST) + + + + + + | Component | Value | Ref Range | Performed | Pathologist | | | | | At | Signature | + + + + + + | APTT | >200.0 () | 26.0 - 36.0 | [facility] | [...] U/mL | LABORATORY | | | SERVICES, JANELL | + + + + + + + + | Performing | Address | City/State/Zipcode | Phone Number | | Organization | | | | + + + + + | [facility] | [address] [facility] [address] | [place] [address] | | | SERVICES, JANELL | BERTRAM [...] | + + + + + | [facility] | [address] | [place] [address] | | | SERVICES, CORE | BERTRAM [...] [facility] | [address] | [place] [address] | | | SERVICES, CORE | PARK [...] | | | LABORATORY | | | BURKINAN | | | SERVICES, | | | [...] | + + + + + | [facility] | [address] | [place] [address] | | | SERVICES, CORE | BERTRAM [...] PRIMARY | | | | | | GEOGRAPHIC INFORMATION SYSTEMS DIRECTOR: Rudy | | | | | | [...] | | | | | isaías / NAHUN | | | | | [...] [facility] | [address] | [place], [place] | | | [facility] | [address] | [address] | | | TESTS | | | | + + + + + VASC LAB LOWER EXT PSEUDOANEUR COMP LEFT (04/26/2014 1:03 PM PST) + + + [...] | | | | | | [place] | | | | + + + [...] | + + + + + | [facility] | [address] | [place] [address] | | | ARON, JANELL | BERTRAM [...] | | + +---------+ + + | [facility] DEPARTMENT OF | | | | [...] | + + + + + | [facility] | [address] | [place] [address] | | | SERVICES, CORE | BERTRAM [...] | + + + + + | [facility] | [address] | [place] [address] | | | SERVICES, CORE | BERTRAM [...] | + + + + + | [facility] | [address] | [place] [address] | | | JANELL SHARP | [address] | | | + + + + + DIFFERENTIAL, ADD ON (04/25/2014 11:59 PM PST) + [...] | included in the neutrophil count. | SERVICES CORE | + + + + + + + + | Performing | Address | City/State/Zipcode | Phone Number | | Organization | | | | + + + + + | [facility] | [address] [address] | [place] [address] | | | SERVICES, CORE | BERTRAM [...] | + + + + + | [facility] | [address] | [place] [address] | | | SERVICES, CORE | PARK [...] | | | LABORATORY | | | BURKINAN | | | SERVICES, | | | [...] the MDRD equation recommended by the | [facility] | | National Kidney Disease Education Program. [...] | + + + + + | [facility] | [address] [address] | [place] [address] | | | SERVICES, CORE | [address] | | | + + + + + MAGNESIUM, PLASMA (04/25/2014 11:59 PM PST) + +-------+ + + + | Component | Value | Ref Range | Performed | Pathologist | | | | | At | Signature | + +-------+ + + + | MAGNESIUM,P | 2.4 | 1.8 - 2.5 mg/dL | [facility] | | | [facility] | | | LABORATORY | | | [...] [facility] | [address] | [place] [address] | | | SERVICES, CORE | PARK [...] | + + + + + | [facility] | [address] | [place] [address] | | | SERVICES, CORE | BERTRAM [...] (H) | 60 - 99 mg/dL | [facility] - | | | GLUCOSE, | [...] SANDERS | [address] | [place], [place] | | | [facility] | [address] | [address] | | | TESTS | | | [...] | | | LABORATORY | | | BURKINAN | | | SERVICES, | | | [...] the MDRD equation recommended by the | [facility] | | National Kidney Disease Education Program. [...] | + + + + + | [facility] | [address] | [place] [address] | | | JANELL SHARP | [address] [...] (H) | 60 - 99 mg/dL | [facility] - | | | GLUCOSE, | [...] [facility] | [address] | [place], [place] | | | [facility] | [address] | [address] | | | TESTS | | | [...] | + +---------+ + + + | LORETOI D CMNT | No Hemo | | [...] [facility] | [address] | [place] [address] | | | SERVICES, CORE | PARK [...] | + + + + + | [facility] | [address] | [place] [address] | | | ARON, JANELL | [address] [...] + + + + | PRODUCT | [id number] | | [facility] | | | UNIT [...] + + + + | BLOOD | [id number] | | [facility] | | | PRODUCT [...] DEPARTMENT OF | [address] | [place] [address] | | | PATHOLOGY | [address] [...] + + + + | PRODUCT | [id number] | | [facility] | | | UNIT [...] + + + + | BLOOD | [id number] | | [facility] | | | PRODUCT [...] | + + + + + | [facility] DEPARTMENT OF | [address] | [place] [address] | | | PATHOLOGY | [address] [...] [facility] | [address] | [place] [address] | | | SERVICES, CORE | PARK [...] | + + + + + | [facility] | [address] | [place] [address] | | | SERVICES, CORE | BERTRAM [...] | | | LABORATORY | | | BURKINAN | | | SERVICES, | | | [...] + + | [facility] | [address] | [place] [address] | | | SERVICES, CORE | PARK [...] [facility] | [address] | [place] [address] | | | SERVICES, CORE | BERTRAM [...] | + + + + + | [facility] | [address] | [place] [address] | | | SERVICES, CORE | PARK [...] [facility] | [address] | [place] [address] | | | SERVICES, CORE | PARK [...] | + + + + + | [facility] | [address] | [place] [address] | | | SERVICES, CORE | BERTRAM [...] + + + | [facility] | [address] | [place], [place] | | | [facility] | [address] | [address] | | | TESTS | | | | + + + + + CAPILLARY BLOOD GLUCOSE (CLAUDE JACOBSON) POC (04/24/2014 10:47 AM PST) + +-------+ [...] [facility] | [address] | [place], [place] | | | [facility] | [address] | [address] | | | TESTS | | | [...] | + + + + + | [facility] | [address] | [place] [address] | | | SERVICES, JANELL | BERTRAM [...] | + + + + + | [facility] | [address] | [place] [address] | | | SERVICES, JANELL | BERTRAM [...] | + + + + + | [facility] | [address] | [place] [address] | | | SERVICES, CORE | PARK [...] | + + + + + | [facility] | [address] | [place] [address] | | | SERVICES, JANELL | [address] | | | + + + + + X-RAY PORTABLE CHEST 1 VIEW (04/24/2014 5:32 AM PST) + + + + + + | Component | Value | Ref Range | Performed | Pathologist | | | | | At | Signature | + + + + + + | X-RAY | STUDY: AR CHEST 1 VIEW | | | | [...] [facility] | [address] | [place] [address] | | | SERVICES, CORE | PARK [...] | | | LABORATORY | | | BURKINAN | | | SERVICES, | | | [...] | + + + + + | [facility] | [address] | [place] [address] | | | SERVICES, JANELL | BERTRAM [...] | + + + + + | [facility] | [address] | [place] [address] | | | SERVICES, CORE | PARK [...] | + + + + + | [facility] | [address] | [place] [address] | | | JANELL SHARP | [address] | | | + + + + + LACTATE, POC (04/24/2014 12:59 AM PST) + +---------+ + [...] + | [facility] | [address] | [place], [place] | | | THERAPY | [address] | [address] | | + + + + + [...] [facility] | [address] | [place], [place] | | | THERAPY | [address] | [address] | | + + + + + [...] | | | LABORATORY | | | BURKINAN | | | SERVICES, | | | [...] | + + + + + | [facility] | [address] | [place] [address] | | | SERVICES, CORE | BERTRAM [...] volume. | LABORATORY | | | SERVICES, JANELL | + + + + + + + + | Performing | Address | City/State/Zipcode | Phone Number | | Organization | | | | + + + + + | [facility] | [address] [address] [address] | [place] [address] | | | SERVICES, JANELL | [address] [...] | + + + + + | [facility] | [address] | [place] [address] | | | SERVICES, CORE | PARK [...] (L) | 36.0 - 46.0 % | [facility] | | | | | | LABORATORY [...] [facility] | [address] | [place] [address] | | | SERVICES, CORE | PARK [...] [facility] | [address] | [place] [address] | | | SERVICES, CORE | PARK [...] | + + + + + | [facility] | [address] | [place] [address] | | | SERVICES, CORE | PARK [...] | + + + + + | [facility] | [address] | [place] [address] | | | SERVICES, CORE | PARK [...] | | | LABORATORY | | | BURKINAN | | | SERVICES, | | | [...] the MDRD equation recommended by the | [facility] | | National Kidney Disease Education Program. [...] | + + + + + | [facility] | [address] [address] [address] | [place] [address] | | | SERVICES, CORE | [address]TR[address] [...] | + + + + + | [facility] | [address] | [place] [address] | | | SERVICES, CORE | BERTRAM [...] [facility] | [address] | [place], [place] | | | [facility] | [address] | [address] | | | TESTS | | | [...] PRIMARY | | | | | | GEOGRAPHIC INFORMATION SYSTEMS DIRECTOR: Rudy | | | | | | [...] 5 | | | | | | Iranian vascular sheath | | | | | [...] | | | | for a 5 Iranian | | | | | | IMAcatheter. [...] | | | | artery. A 3 Iranian | | | | | | microcatheterwas [...] | | | | | isaías / NAHUN | | | | | [...] + + + + + + | [facility] | 424 | ms | [facility] [...] At | + + + | | [facility] | | | CARDIOLOGY | + + + + + | Procedure Note | + + | Emeka Elias - 04/23/2014 1:19 PM PST | + + + + + + + | Performing | Address | City/State/Zipcode | Phone Number | | Organization | | | | + + + + + | [facility] | [address] | [place], [place] | | | CARDIOLOGY | [address] | [address] | | + + + + + [...] + + + + | PRODUCT | [id number] | | [facility] | | | UNIT [...] + + + + | BLOOD | [id number] | | [facility] | | | PRODUCT [...] DEPARTMENT OF | [address] | [place], [place] [address] | | | PATHOLOGY | [address] [...] + + + + | PRODUCT | [id number] | | [facility] | | | UNIT [...] + + + + | BLOOD | [id number] | | [facility] | | | PRODUCT [...] DEPARTMENT OF | [address] | [place] [address] | | | PATHOLOGY | [address] [...] + + + + | PRODUCT | [id number] | | [facility] | | | UNIT [...] + + + + | BLOOD | [id number] | | [facility] | | | PRODUCT [...] DEPARTMENT OF | [address] | [place], [place] [address] | | | PATHOLOGY | [address] [...] + + + + | PRODUCT | [id number] | | [facility] | | | UNIT [...] + + + + | BLOOD | [id number] | | [facility] | | | PRODUCT [...] | + + + + + | [facility] | [address] | [place] [address] | | | PATHOLOGY | [address] [...] + + + + | PRODUCT | [id number] | | [facility] | | | UNIT [...] + + + + | BLOOD | [id number] | | [facility] | | | PRODUCT [...] DEPARTMENT OF | [address] | [place] [address] | | | PATHOLOGY | [address] [...] + + + + | PRODUCT | [id number] | | [facility] | | | UNIT [...] + + + + | BLOOD | [id number] | | [facility] | | | PRODUCT [...] | + + + + + | [facility] DEPARTMENT | [address] | [place] [address] | | | PATHOLOGY | [address] | | | + + + + + X-RAY PORTABLE CHEST 1 VIEW (04/23/2014 11:41 AM PST) + + + + + + | Component | Value | Ref Range | Performed | Pathologist | | | | | At | Signature | + + + + + + | X-RAY | EXAM: AR CHEST 1 VIEW | | | | [...] | | | | | V MD ALISE I have | | | | | | personally viewed this | | | | | | procedure/exam, reviewed | | | | | | this report, and | | | | | | madechanges to it where | | | | | | appropriate. | | | | | | Final/Electronically | | | | | | isaías / EMIL Asher | | | | [...] + + + + | PRODUCT | [id number] | | [facility] | | | UNIT [...] + + + + | BLOOD | [id number] | | [facility] | | | PRODUCT [...] DEPARTMENT OF | [address] | [place] [address] | | | PATHOLOGY | [address] [...] + + + + | PRODUCT | [id number] | | [facility] | | | UNIT [...] + + + + | BLOOD | [id number] | | [facility] | | | PRODUCT [...] | + + + + + | [facility] | [address] | [place] [address] | | | PATHOLOGY | [address] [...] + + + + | PRODUCT | [id number] | | [facility] | | | UNIT [...] + + + + | BLOOD | [id number] | | [facility] | | | PRODUCT [...] DEPARTMENT OF | [address] | [place] [address] | | | PATHOLOGY | [address] [...] + + + + | PRODUCT | [id number] | | [facility] | | | UNIT [...] + + + + | BLOOD | [id number] | | [facility] | | | PRODUCT [...] | + + + + + | [facility] | [address] | [place] [address] | | | PATHOLOGY | [address] [...] + + + + | PRODUCT | [id number] | | [facility] | | | UNIT [...] + + + + | BLOOD | [id number] | | [facility] | | | PRODUCT [...] DEPARTMENT OF | [address] | [place] [address] | | | PATHOLOGY | [address] [...] + + + + | PRODUCT | [id number] | | [facility] | | | UNIT [...] + + + + | BLOOD | [id number] | | [facility] | | | PRODUCT [...] | + + + + + | [facility] | [address] | [place] [address] | | | PATHOLOGY | [address] [...] + + + + | PRODUCT | [id number] | | [facility] | | | UNIT [...] + + + + | BLOOD | [id number] | | [facility] | | | PRODUCT [...] DEPARTMENT OF | [address] | [place] [address] | | | PATHOLOGY | [address] [...] + + + + | PRODUCT | [id number] | | [facility] | | | UNIT [...] + + + + | BLOOD | [id number] | | [facility] | | | PRODUCT [...] | + + + + + | [facility] | [address] | [place] [address] | | | PATHOLOGY | [address] [...] + + + + | PRODUCT | [id number] | | [facility] | | | UNIT [...] + + + + | BLOOD | [id number] | | [facility] | | | PRODUCT [...] + + + + | [facility] | [address] | [place] [address] | | | PATHOLOGY | [address] [...] + + + + | PRODUCT | [id number] | | [facility] | | | UNIT [...] + + + + | BLOOD | [id number] | | [facility] | | | PRODUCT [...] | + + + + + | [facility] | [address] | [place] [address] | | | PATHOLOGY | [address] [...] + + + + | PRODUCT | [id number] | | [facility] | | | UNIT [...] + + + + | BLOOD | [id number] | | [facility] | | | PRODUCT [...] DEPARTMENT OF | [address] | [place] [address] | | | PATHOLOGY | [address] [...] + + + + | PRODUCT | [id number] | | [facility] | | | UNIT [...] + + + + | BLOOD | [id number] | | [facility] | | | PRODUCT [...] | + + + + + | [facility] | [address] | [place] [address] | | | PATHOLOGY | [address] [...] + + + + | PRODUCT | [id number] | | [facility] | | | UNIT [...] + + + + | BLOOD | [id number] | | [facility] | | | PRODUCT [...] DEPARTMENT OF | [address] | [place] [address] | | | PATHOLOGY | [address] [...] + + + + | PRODUCT | [id number] | | [facility] | | | UNIT [...] + + + + | BLOOD | [id number] | | [facility] | | | PRODUCT [...] | + + + + + | [facility] | [address] | [place] [address] | | | PATHOLOGY | [address] [...] [facility] | [address] | [place] [address] | | | SERVICES, JANELL | [address] [...] [facility] | [address] | [place] [address] | | | SERVICES, CORE | PARK [...] most patients with mech. valves (2.5 | SERVICES, CORE | | - 3.5) INR APTT Therapeutic Range: | | | (75 - 120) sec Heparin levels of 0.35 - 0.7 U/mL | | + + + + + + + + | Performing | Address | City/State/Zipcode | Phone Number | | Organization | | | | + + + + + | [facility] | [address] | [place] [address] | | | SERVICES, [facility] | [address] | | | + [...] | | | LABORATORY | | | [place] | | | SERVICES, | | | [...] [facility] | [address] | [place] [address] | | | SERVICES, CORE | PARK [...] [facility] | [address] | [place] [address] | | | SERVICES, CORE | PARK [...] [facility] | [address] | [place] [address] | | | SERVICES, CORE | PARK [...] | + + + + + | [facility] | [address] | [place] [address] | | | JANELL SHARP | [address]ERTRAM [...] 89 | 60 - 99 mg/dL | [facility] - | | | GLUCOSE, | [...] [facility] | [address] | [place], [place] | | | [facility] | [address] | [address] | | | TESTS | | | [...] | + + + + + | [facility] | [address] | [place] [address] | | | SERVICES, | [address] [...] [facility] | [address] | [place] [address] | | | SERVICES, | [address] [...] + + + + | PRODUCT | [id number] | | [facility] | | | UNIT [...] + + + + | BLOOD | [id number] | | [facility] | | | PRODUCT [...] | + + + + + | [facility] | [address] | [place] [address] | | | PATHOLOGY | [address] [...] + + + + | PRODUCT | [id number] | | [facility] | | | UNIT [...] + + + + | BLOOD | [id number] | | [facility] | | | PRODUCT [...] DEPARTMENT OF | [address] | [place] [address] | | | PATHOLOGY | [address] [...] + + + + | PRODUCT | [id number] | | [facility] | | | UNIT [...] + + + + | BLOOD | [id number] | | [facility] | | | PRODUCT [...] | + + + + + | [facility] | [address] | [place] [address] | | | PATHOLOGY | [address] [...] + + + + | PRODUCT | [id number] | | [facility] | | | UNIT [...] + + + + | BLOOD | [id number] | | [facility] | | | PRODUCT [...] DEPARTMENT OF | [address] | [place] [address] | | | PATHOLOGY | [address] [...] + + + + | PRODUCT | [id number] | | [facility] | | | UNIT [...] + + + + | BLOOD | [id number] | | [facility] | | | PRODUCT [...] | + + + + + | [facility] | [address] | [place] [address] | | | PATHOLOGY | [address] [...] + + + + | PRODUCT | [id number] | | [facility] | | | UNIT [...] + + + + | BLOOD | [id number] | | [facility] | | | PRODUCT [...] | + + + + + | [facility] | [address] | [place] [address] | | | PATHOLOGY | [address] | | | + + + + + CARDIOLOGY (04/23/2014 12:00 AM PST) + + + | Narrative | Performed At | + + + | | | | | | + + + + + | Procedure Note | + + | Other, Faculty - 05/15/2014 9:07 AM PST | + [...] | | | | | doses, Starting Tue04/26/14 at | | | | | | | 1545, Until Tue05/13/14 at 1515, | | | [...] | | | | | modification) on [facility] 05/02/14 at | | | | | [...] | | | | ONCE, 1 dose, 04/24/14 at | | AM PST | | | | | 1015 | | | | | | + +-------+ +-------+---+---+ +---+---+ | | | +---+---+ + +-------+ +-------+---+---+ | bisacodyl (DULCOLAX) | Given | 04/25/19 | 10 mg | | | | suppository 10 mg 10 mg, rectal, | | 15 10:55 | | | | | ONCE, 1 dose, [facility] 04/25/14 at | | AM PST | [...] | | | | | 1620, Until e 04/23/14 at 1630 | | | | [...] | | | | | modification) on [facility] 05/02/14 at | | | | | [...] famotidine (PEPCID) tablet 20 | Given | 05/13/19 | 20 mg | | | | [...] 3:20 | | | | | dose, 04/30/14 at 1445 | | PM PST [...] | | | | | 04/26/14 at 7 | | | | | | + [...] | | | | | | | 04/28/14 at 0743, heparin level < | | [...] | | | | | dose on [facility] 05/02/14 at 0530, | | | | [...] ringers IV 10 mL/hr, | Rate/Dos | 04/25/20 | 10 mL/hr | 10 mL/hr | [...] | | ONCE, 1 dose, 05/07/14 at 1100 | | AM PST [...] | | | (after last modification) on [facility] | | | | | | | 1/22/15 at 2100, Until | | | | [...] PST | | | | | Starting e 04/23/14 at 1537, | | | | | [...] PST | | | | | Starting [facility] 05/02/14 at 0704, | | | | [...] | | | | | NEEDED, Starting Tue05/02/14 at | | | | | [...] | | | | | NEEDED, Starting e 04/30/14 at | | | | | | [...] +-------+ +-------+---+---+ +-------+ +-------+---+---+ | Given | 02/02/20 | 10 mg | | | | [...] | | | | NEEDED, Starting 04/24/14 | | | | | | | at 1141, Until 04/26/14 at | | | | | [...] | | | tube, ONCE, 1 dose, [facility] 04/25/14 | | PM PST | | | | | at 1330 | | | | | | + +-------+ +--------+---+---+ +---+---+ | | | +---+---+ + +-------+ +--------+---+---+ | potassium chloride (KLOR-CON) | Given | 05/01/19 | 40 mEq | | | | packet 40 mEq 40 mEq, feeding | | 15 5:39 | | | | | tube, ONCE, 1 dose, [facility] 05/01/14 | | AM PST | | [...] 40 mEq, intravenous, ONCE, | | 15 1:24 | | | | | dose, 04/27/14 at 0030 | | AM PST | | | | + +---------+ +--------+---+---+ +---+---+ | | | +---+---+ + +---------+ +--------+---+---+ | potassium chloride IV 40 mEq | New Bag | 04/30/19 | 40 mEq | | | | 40 mEq, intravenous, ONCE, | | 15 12:11 | | | | | doseBeth 04/30/14 at 0800 | | PM PST [...] PM PST | | | | | Tue), First dose (after last | | | [...] | | +-------+ +---+---+---+ | Given | 04/24/19 | [...] | | | | | modification) on [facility] 04/27/14 at | | | | | [...]
--- OUTSIDE RECORDS SUMMARY | ~2019-11-05 | XMS | Encounter Summary ---
Demographics + + + | Address | [address] | | | [place] [address] | + + + | Home Phone | | + + + | Preferred Language | Unknown | + + + | Marital Status | | + + + | Episcopalian Affiliation | NRP | + + + | Race | White | + + + | Ethnic Group | Not or | + + + Author + + + | Author | [facility] | + + + | Organization | [facility] | + + + | Address | Unknown | + + + | Phone | Unavailable | + + + Support + + + + + | Name | Relationship | Address | Phone | + + + + + | Kole Willingham | [place] | [address] | | | | | [place], [place] | | | | | [address] | | + + + + + | Cami Sawyer | ECON | Unknown | | + + + + + Care Team Providers + +------+ + | Care Certifed Refrigeration Operator Name | Role | Phone | [...] | | 2011 | Only | [address] [facility] | [phone] | | | | | Romeo Kristen | | | | | | [place], [place] | | | | | | [address] | | | +--------+ + + + [...] DEPT OF | [address] | [place], [place] | | | CARDIOLOGY | [address] | [address] | | + + + + + documented in this encounter Visit Diagnoses Not on filedocumented in this encounter"
--- OUTSIDE RECORDS SUMMARY | ~2019-11-05 | XMS | Encounter Summary ---
Demographics + + + | Address | [address] | | | [place] [address] | + + + | Home Phone | | + + + | Preferred Language | Unknown | + + + | Marital Status | | + + + | Protestant Affiliation | NRP | + + + | Race | White | + + + | Ethnic Group | Not or | + + + Author + + + | Author | [facility] | + + + | Organization | [facility] | + + + | Address | Unknown | + + + | Phone | Unavailable | + + + Support + + + + + | Name | Relationship | Address | Phone | + + + + + | Kole Willingham | [place] | [address] | | | | | [place], [place] | | | | | [address] | | + + + + + | Cami Sawyer | ECON | Unknown | | + + + + + Care Team Providers + +------+ + | Care Master Sheet Clerk Name | Role | Phone | [...] | | 2011 | Only | [address] [facility] | [phone] | | | | | [place] Kristen | | | | | | [place], [place] | | | | | | [address] | | | +--------+ + + + [...] DEPT OF | [address] | [place], [place] | | | CARDIOLOGY | [address] | [address] | | + + + + + documented in this encounter Visit Diagnoses Not on filedocumented in this encounter"
--- OUTSIDE RECORDS SUMMARY | ~2019-11-05 | XMS | Encounter Summary ---
Demographics + + + | Address | [address] | | | [place] [address] | + + + | Home Phone | | + + + | Preferred Language | Unknown | + + + | Marital Status | | + + + | Hoahaoism Affiliation | Unknown | + + + | Race | Unknown | + + + | Ethnic Group | Unknown | + + + Author + + + | Author | [facility] | | | and [place] | + + + | Organization | [facility] | | | [...] Team Providers + +------+ + | Care Kaiawhina Kura [place] Name | Role | Phone | + +------+ + PCP | Unavailable | + +------+ + Encounter Details +--------+ + + + + | Date | Type | Department | Care Team | Description | +--------+ + + + + | 10/09/ | Hospital | [facility] | Conversion | | | 2016 | Encounter | [facility] | Transaction, | | | | | [address] | Provider Unknown | | | | | [place], [place] | | | | | | [address] | (Fax) | | | | | [phone] | | | +--------+ + + + [...]
--- OUTSIDE RECORDS SUMMARY | ~2019-11-05 | XMS | Encounter Summary ---
Demographics + + + | Address | [address] | | | [place] [address] | + + + | Home Phone | | + + + | Preferred Language | Unknown | + + + | Marital Status | | + + + | Islam Affiliation | Unknown | + + + | Race | Unknown | + + + | Ethnic Group | Unknown | + + + Author + + + | Author | [facility] | | | and [place] | + + + | Organization | [facility] | | | [...] Providers + +------+ + | Care Skiver Hand Name | Role | Phone | + +------+ + PCP | Unavailable | + +------+ + Encounter Details +--------+ + + + + | Date | Type | Department | Care Team | Description | +--------+ + + + + | 03/01/ | Hospital | [facility] | Gabriel Myrick | Anemia, unspecified | | 2017 - | Encounter | [facility] | MD [address] | type; Current | | | | CARE FLOOR [address] | chronic use of | | 03/02/ | | [address] | [place] [address] | systemic steroids; | | 2017 | | [place], [place] | [phone] | Gastroesophageal | | | | [address] | | reflux disease | | | | [phone] | | without esophagitis; | | | [...] Discharge Summaries by Latosha Jimenez MD-R2 at 03/02/17705 Author: BRIAN OttoR2 Service: Internal Medicine Author Type: Resident-Y1 Filed: 03/02/17 1326 Date of Service: 03/02/17705 Status: Attested Family Law Attorney: BRIAN OttoR2 (Resident-Y2) Cosigner: Chace Benson MD at 03/02 [...] with the progress note of Dr. Jimenez. [facility] Service: Hospitalist Resident Discharge Summary Date of [...] currently on Humira being seen by Dr. Tomi CLAYTON in [place]. Antonia he previously underwent a small bowel [...] Take 1 tablet by mouth d aily. 02/28/2017 omeprazole (PRILOSEC) 40 MG capsule Take [...] during the examination. DATA Recent Labs Lab 03/02/17 0405 03/01/17 1901 WBC 18.55* 25.02* HGB 8.5* 10.1* HCT 28.4* 33.4* PLT 521* 631* Recent Labs Lab 03/02/17 0405 03/01/17 1901 03/01/17 1723 NA 142 144 143 K 3.5 [...] 03/02/17 0405 TSH 1.47 Recent Labs Lab 03/01/17 1901 CKTOTAL 56 CKMBINDEX 4.6 Intake/Output Summary (Last [...] on file. Follow up: Alireza Krishna MD [address], [address] [place] [address] Call office for appointment. Medication List START [...] Your Medications [facility] [place] [facility] [address] [facility] [address] [facility], [place] [address] metroNIDAZOLE 500 MG tablet Na sulfate-K sulfate-Mg sulf 17.5-3.13-1.6 GM/180ML Soln neomycin 500 MG tablet scopolamine 1 mg/3days patch These medications were sent to [facility] [address] [facility], [place] - [address] [facility] [address] , [place] [address] acetaminophen 325 MG tablet lactobacillus granules potassium chloride SA 20 MEQ tablet You can get these medications from any pharmacy Bring a paper prescription for each of these medications enoxaparin 80 MG/0.8ML Soln Latosha Jimenez MD-R1 03/02/2017 1:09 PM Inez Hendrix MD, have reviewed this note. [place] [...] 03/02/2017 3:58 PM PSTFormatting of this note m ight be different from the original. Nurse Progress Note by Gloria Hernandez RN at 03/02/17 3292 Author: Gloria Hernandez RN Service: (none) Author Type: Registered Nurse Filed: 03/02/17 1600 Date of Service: 03/02/17 3238 Status: Signed Family Law Attorney: Gloria Hernandez RN (Registered Nurse) Discharge instructions given to pt and , all questions answered. VSS. Discharged jena e via private vehicle with . onver roshan Transaction, Provider Unknown - 03/02/2017 12:54 PM PST Case Management by Linh Perez RN at 03/02/17 8383 Author: Linh Perez RN Service: (none) Author Type: Registered Nurse Filed: 03/02/17 1257 Date of Service: 03/02/17 4967 Status: Signed Family Law Attorney: Linh Perez RN (Registered Nurse) Pt to d/c home today with Lovenox. 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 Faxed script to RX pharmacy for russell check. Notified Marilin with [facility] of d/c. Faxed resumption order to [facility]. Family to trasnport pt home KAMRYN signed Nika Abbi Patel [facility] - 03/02/2017 12:47 PM PSTFormatting of this note might be different from the or iginal. Progress Notes by Abbi Hussein RPH at 03/02/177 Author: Abbi Hussein RPH Service: Pharmacy Author Type: Pharmacist Filed: 03/02/171246 Date of Service: 03/02/171246 Status: Signed Family Law Attorney: Abbi Hussein RPH (Pharmacist) INITIATION OF Parenteral Nutrition: Smita Willingham 61 y.o. female Height: Ht Readings from Last 1 Encounters: 03/02/17 1.727 m (5' 8") Weight: Wt Readings from Last 1 Encounters: 03/02/17 74.2 kg (163 lb 9.3 oz) Body Mass Index: Body mass index is 24.87 kg/m. [place] Body Weight: 63.9kg Adjusted Body Weight: 68.0kg Creatinine: CREATININE Date Value Ref Range Status 03/02/2017 0.7 0.50 - 1.00 mg/dL Final Estimated CrCl : Serum creatinine: 0.7 mg/dL 03/02/17 0405 Estimated creatinine clearance: 85.1 mL/min Estimated Needs: Basal Energy Expenditure (BEE): 1409kcal BEE x Major Non - Elective Surgery: = 9552-0420 Kcal needed per day Protein Requirements: Infection, Major Surgery, Cancer: 1.3 - 1.6 g/kg/day PN Line: Central Dextrose: 20% Amino Acids: 6% Lipid 20% 250 mL PN Goal Rate: 65 mL/hr PN Rate on Day 1: 25 mL/hr for 24 hours Amount of non-protein calories and grams of protein this provides: 1561 kcal + 93.6gm Xq=383; CO2=17. Initiating TPN with low Cl formula Pharmacy will continue to follow Pharmacist: ABBI HUSSEIN 03/02/2017 12:43 PM onversio n Transaction, Provider Unknown - 03/02/2017 11:58 AM PSTFormatting of this note might be di fferent from the original. Progress Notes by Honey Gamboa RD at 03/02/17 1157 Author: Honey Gamboa RD Service: (none) Author Type: Registered Dietitian Filed: 03/02/17 2877 Date of Service: 03/02/171157 Status: Signed Family Law Attorney: Honey Gamboa RD (Registered Dietitian) 03/02/17 1130 Subjective Timepoint Admit (Consult: home TPN, wt loss) Pt c/o Pt with hx of Crohn's and chronic diarrhea. She states she has been on TPN for 3 we eks and she has not been eating. Pt currently feeling scared to eat, as she does not want i ncreased diarrhea. Diet Experience Home Nutrition Support TPN from [facility] in [place]: 275 g Dextrose, 90 g AA, 40 [...] Management by Linh Perez RN at 03/02/17 1129 Author: Linh Perez RN Service: (none) Author Type: Registered Nurse Filed: 03/02/17 1141 Date of Service: 03/02/17 1129 Status: Signed Family Law Attorney: Linh Perez RN (Registered Nurse) 03/02/17 1100 [...] colostmy surgery on Tuesday. Pt lives in [place] with spouse. Pt is indep with all her ADL's. No use of home O 2, no HD. Pt does use a cane and walker as needed. Pt established on coumadin with [place] [facility]. Patient's PCP is: Dr Davina Cox/[facility]. Pt has appnt on 03/23 to est [facility] with this PCP Patient's insurance: medicare/[employer] Coverage concerns: no Medication coverage/concerns: no Rx [...] Date of Service: 03/02/17 1037 Status: Signed Family Law Attorney: Ryan Ariza RN (Registered Nurse) Infection Prevention Note: Pt currently has a nasal PCR that is positive for MRSA. Contact Precautions are required for this admission. Thank you. Ryan Ariza BSN,CIC onver roshan Transaction, Provider Unknown - 03/01/2017 10:58 PM PST Progress Notes by Hamilton Drummond RPH at 03/01/17 225 Author: Hamilton Drummond RPH Service: Pharmacy Author Type: Pharmacist Filed: 03/01/172257 Date of Service: 03/01/172257 Status: Signed Family Law Attorney: Hamilton Drummond RPH (Pharmacist) Note ccl 76.4ml/min meds reviewed pharmacy will follow rdc 2258 onver roshan Transaction, Provider Unknown - 03/01/2017 10:35 PM PST Nurse Progress Note by Mila Dolan RN at 03/01/172234 Author: Mila Dolan RN Service: (none) Author Type: Registered Nurse Filed: 03/02/17 0625 Date of Service: 03/01/172234 Status: Addendum Family Law Attorney: Mila Dolan RN (Registered Nurse) Related Notes: Original Note by Mila Dolan RN (Registered Nurse) filed at 03/02/17 [phone] Pt transported to room 4439, via stretcher. 0620 IV pain meds given x 1, oxycodone x 1. Pt has dietary supplements in room, 1st one g iven this AM. Pt aware of when she needs to drink per Dr. Beal. Otherwise hourly rou nding uneventful. docume nted in this encounter H&P Notes Gabriel Myrick MD - 03/01/2017 8:07 PM PSTFormatting of this note might be dif ferent from the original. H&P by Gabriel Myrick MD at 03/01/172006 Author: Gabriel Myrick MD Service: Hospitalist Author Type: Physician Filed: 03/02/17801 Date of Service: 03/01/172006 Status: Signed Family Law Attorney: Gabriel Myrick MD (Physician) Related Notes: Original Note by Gabriel Myrick MD (Physician) filed at 03/02/17 0715 HISTORY AND PHYSICAL for Smita Willingham,female,1955,61 y.o. who is being admitted to the adult hospitalist service at [facility]. Date of Admission: 03/01/2017 Requesting Physician: [facility] Reason for Admission: Hypokalemia History Obtained From: patient Chief complaint: Referal History of present illness: The patient is a 61 y.o. female with significant past medical h istory. Patient came today to the emergency room complaining of general body aches, worsening chron ic diarrhea. Also she was referred from her primary care office after initial lab indicated her potassium was 2.3. 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 Bocanegra this coming Tuesday. Patient currently unable to hold any oral medications at this point, and she is currently on TPN. According to her, she has been suffering this chronic diarrhea for months now, and her Crohn disease is not getti ng any better. She denied any rectal bleed. She denied any nausea or vomiting. She looks genaro y exhausted and tired. The patient received oral and IV potassium replacement. Also explaine d to her we will consult with Nutrition and Pharmacy to adjust her TPN formula. Patient marie es any abdominal pain. No chest pain, no respiratory symptoms, no fever on arrival, and no o ther significant complaint. 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 Chronic diarrhea COPD (chronic obstructive pulmonary disease) (HCC) Crohn's disease (HCC) Deep vein thrombosis (DVT) (HCC) right leg and then travelled to spleen Depression E-coli UTI Embolism and thrombosis of splenic artery Gastroesophageal reflux disease with hiatal hernia GERD (gastroesophageal reflux disease) Hemorrhage of gastrointestinal tract, unspecified Hypertension Hypokalemia 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) Joint pain Microcytic anemia Neuromuscular disorder (HCC) left leg numbness, severe tingling, shooting pain down leg Neuropathy On total parenteral nutrition (TPN) Osteoporosis Other chronic pain Pyelonephritis Recurrent aphthous ulcer Sepsis (HCC) Past surgical history: Past Surgical History Procedure Laterality Date ABDOMINAL SURGERY ANAL FISTULA SETON PLACEMENT N/A 10/17/2015 Procedure: ANAL FISTULA SETON PLACEMENT; Surgeon: Enrique Bocanegra MD; [facility]; Service: General; Laterality: N/A; APPENDECTOMY CHOLECYSTECTOMY ESOPHAGOGASTRODUODENOSCOPY Left 08/06/2015 Procedure: ESOPHAGOGASTRODUODENOSCOPY; Surgeon: Sheng Rios MD; Location: [facility]; Service: Gastroenterology; Laterality: Left; ESOPHAGOGASTRODUODENOSCOPY N/A 04/21/2014 Procedure: ESOPHAGOGASTRODUODENOSCOPY; Surgeon: Bony ePtty MD; Location: [facility] BED[facility]IDE PROCEDURE; Service: Gastroenterology; Laterality: N/A; HYSTERECTOMY LAPAROTOMY N/A 04/23/2014 Procedure: EXPLORATION - LAPAROTOMY; Surgeon: Bogdan Moser DO; Location: [facility] MAIN [facility] R; Service: General; Laterality: N/A; LYSIS OF ADHESIONS PORTACATH PLACEMENT Left SMALL INTESTINE SURGERY SPLENECTOMY, TOTAL N/A 04/23/2014 Procedure: SPLENECTOMY; Surgeon: Bogdan Moser DO; Location: [facility] MAIN OR; Service: General; Laterality: N/A; TONSILLECTOMY Immunizations: Influenza: Ordered Pneumoccocal: Ordered Home medications: Prior to Admission medications Medication Sig Start Date End Date Taking? Authorizing Provider gabapentin (NEURONTIN) 300 MG capsule Take 300 mg by mouth 3 (three) times daily. 08/21/15 Yes Historical Provider lactobacillus (FLORANEX) granules Take 1 packet by mouth 2 (two) times daily. 08/08/15 Yes Deanne Henson MD LORazepam (ATIVAN) 0.5 MG tablet Take 0.5 mg by mouth every 6 (six) hours as needed for Anx iety. Yes Historical Provider metoprolol (LOPRESSOR) 25 MG tablet Take 2 tablets by mouth 2 (two) times daily. Patient taking differently: Take 50 mg by mouth 2 (two) times daily. Indications: 50 mg bid 11/10/14 Yes Migue Weldon MD omeprazole (PRILOSEC) 40 MG capsule Take 40 mg by mouth 2 (two) times daily. Yes Historic al Provider oxyCODONE-acetaminophen (PERCOCET) 10-325 MG per tablet Take 1 tablet by mouth every 4 (fou r) hours as needed for Pain for up to 10 days. 03/01/17 03/11/17 Yes JENARO Spencer potassium chloride (MICRO-K) 10 MEQ CR capsule Take 20 mEq by mouth as needed. Takes when t akes furosemide Yes Historical Provider predniSONE (DELTASONE) 10 MG tablet Take 15 mg by mouth daily. Indications: 15 mg Yes His torical Provider promethazine (PHENERGAN) 25 MG tablet Take 25 mg by mouth every 6 (six) hours as needed for Nausea. Yes Historical Provider warfarin (COUMADIN) 6 MG tablet Take 6 mg by mouth daily. Yes Historical Provider fluconazole (DIFLUCAN) 150 MG tablet Take 150 mg by mouth as needed. 08/13/15 03/01/17 Histo rical Provider Allergies: Allergies Allergen Reactions Demerol [Meperidine] Other (See Comments) Unknown Erythromycin Other (See Comments) unknown Levofloxacin Other (See Comments) tendinitis Reglan [Metoclopramide] Agitation Unknown Penicillins Nausea and Vomiting Family history: Family History Problem Relation Age of Onset Malig hypertherm Neg Hx Social history: History Alcohol Use No History Smoking Status Current Every Day Smoker Packs/day: 0.50 Years: 45.00 Smokeless Tobacco Never Used Comment: e cigs History Drug Use No Vitals: Vitals: 03/01/17 1848 03/01/171951 BP: 129/58 142/66 BP Location: Left upper arm Pulse: 107 101 Resp: 18 18 Temp: 98.3 F (36.8 C) TempSrc: Temporal SpO2: 97% 94% Weight: 77.1 kg (170 lb) Physical exam: Well-appearing, AOx3, no acute distress HENT: atraumatic, mucus membranes moist, conjunctivae normal, neck supple, no JVD Heart: Regular rate and rhythm, no murmur, radial and dorsalis pedis pulses are palpable an d equal Lungs: Clear to auscultation without wheezes, rales, rhonci, good effort, no respiratory di stress, no accessory muscle use Abdomen: Soft, nontender, nondistended, +bowel sounds in all 4 quadrants Extremities: No cyanosis, clubbing, tenderness, or edema Skin: No rash or lesion, normal skin turgor Neuro: No acute focal motor or sensory deficits. Data: CBC: Lab Results Component Value Date WBC 25.02 (H) 03/01/2017 RBC 4.64 03/01/2017 HGB 10.1 (L) 03/01/2017 HCT 33.4 (L) 03/01/2017 MCV 72.1 (L) 03/01/2017 MCH 21.8 (L) 03/01/2017 MCHC 30.2 (L) 03/01/2017 RDW 58.2 (H) 03/01/2017 PLT 631 (H) 03/01/2017 MPV 7.8 03/01/2017 DIFFTYPE MANUAL 03/01/2017 CMP: Lab Results Component Value Date NA 144 03/01/2017 K 2.3 (LL) 03/01/2017 K 4.5 04/23/2014 CL 114 (H) 03/01/2017 CO2 16 (L) 03/01/2017 ANIONGAP 16 03/01/2017 GLUF 106 (H) 03/01/2017 BUN 27 (H) 03/01/2017 CREATININE 0.78 03/01/2017 BCR 35 03/01/2017 CA 8.9 03/01/2017 PROT 7.7 03/01/2017 ALB 3.0 (L) 03/01/2017 GLOB 4.8 03/01/2017 BILITOT 0.5 03/01/2017 ALP 246 (H) 03/01/2017 AST 48 (H) 03/01/2017 ALT 61 03/01/2017 EGFR >60 03/01/2017 PT/INR: Lab Results Component Value Date INR 2.1 03/01/2017 Assessment/Plan: PROBLEM LIST Principal Problem: Hypokalemia Active Problems: Crohn's disease (HCC) COPD (chronic obstructive pulmonary disease) Chronic anticoagulation Current chronic use of systemic steroids Anemia On total parenteral nutrition (TPN) 1. Profound hypokalemia, likely related to GI losses and her chronic diarrhea. Patient also will receive replacement through oral and IV replacement. In addition, will consult with brittaney and Nutrition for adjustment of her TPN formula. In the meantime will continue to mon itor her potassium level. 2. Crohn disease with chronic diarrhea and currently scheduled to see Dr. Bocanegra for rep air of her rectovaginal fistulas. Patient currently stable in that regard. 3. Chronic atrial fibrillation with Coumadin for prior DVT and mesenteric vein thrombosis, currently enlarged to 2.1. Currently no evidence of GI bleed. 4. Other medical problems currently stable. 5. DNR/DNI as per patient request. 6. Time for hospital stay 2 nights. Date of admission: 03/01/2017 Code Status: DNR/DNI Disposition: Admit to Medical Floor. I estimate that this patient will require at least 2 midnights of hospital care Gabriel Myrick MD 03/01/2017 8:07 PM documentying cummings in this encounter Consult Notes Enrique Bocanegra MD - 03/02/2017 12:13 PM PSTFormatting of this note might be different f rom the original. Consults by Enrique Bocanegra MD at 03/02/17 3069 Author: Enrique Bocanegra MD Service: General Surgery Author Type: Physician Filed: 03/02/17 4639 Date of Service: 03/02/17 4684 Status: Addendum Family Law Attorney: Enrique Bocanegra MD (Physician) Related Notes: Original Note by JENARO Spencer (Nurse Practitioner) filed at 1220 Patient ID: Smita Willingham is a 61 y.o. female. Chief complaint: Chron's disease, diarrhea, anovaginal fistula, chronic UTI's HPI Smita Willingham is a very pleasant 61 y.o. female who is well known to our clinic. She has a l albertina history of chron's disease. She is currently on Humira being seen by Dr. Tomi Rider. She previously underwent a small bowel resection where roughly 17 inches were tito curry per the patient. 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 She has a Hx of mesenteric and LE DVT and is currently on coumadin. She also has a previous history of anovaginal and perianal fistulas. She was initially seen by Dr. Bocanegra on 09/09/15 with a chief complaint of recurrent UTIs and a possible rectova ginal fistula with stool from the vagina. She underwent a exam under anesthesia, and plac ement of a RA and 3 AML setons and rectal mucosa biopsy on 10/27/15 with the following findin gs "Right lateral internal opening at dentate line coursing in a high transsphincteric tract . Three internal openings, one at dentate line anterior midline and two proximal to dentate line anterior midline all tract high into the vagina anteriorly. No active infection or absc ess. There is mild inflammation in the rectum." She was seen multiple times in follow up. She was recommended to undergo a APR with colostomy however the patient was very resistant t o this. She was then recommended to go to [place] for a second opinion. She never went to [place] due to the trip being a hardship for her. She was then lost to follow up. She started her biologictreatments. Since then she has been following with Dr. Krishna. She has been having profuse watery diarrhea and recurrent UTIs, requiring hospital admissio ns and abx treatments. When she is on abxs her diarrhea is worse. This has been going on f or months. She has been taking narcotics and opium to help thicken up her stools with good results. She was recently put on bowel rest by Dr. Krishna and started on TPN as an outpa tient and her narcotics were stopped. Her diarrhea has been worsening. She states that she is miserable. She is having significant perianal discomfort d/t the diarrhea. She is read y to have the APR and just want to have a colostomy. 03/02/17-Pt completed her preoperative labs that noted severe hypokalemia. She was admitte d to the hospitalists service for this. She is doing OK today. No significant changes from our appointment yesterday. Review of Systems Constitutional: Positive for fatigue. Negative for chills and fever. Respiratory: Negative for shortness of breath. Cardiovascular: Negative for chest pain. Gastrointestinal: Positive for abdominal pain, diarrhea and rectal pain. Negative for const ipation, nausea and vomiting. Skin: Positive for wound (perianal). All other systems reviewed and are negative. 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 Chronic diarrhea COPD (chronic obstructive pulmonary disease) (HCC) Crohn's disease (HCC) Deep vein thrombosis (DVT) (HCC) right leg and then travelled to spleen Depression E-coli UTI Embolism and thrombosis of splenic artery Gastroesophageal reflux disease with hiatal hernia GERD (gastroesophageal reflux disease) Hemorrhage of gastrointestinal tract, unspecified Hypertension Hypokalemia 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) Joint pain Microcytic anemia Neuromuscular disorder (HCC) left leg numbness, severe tingling, shooting pain down leg Neuropathy On total parenteral nutrition (TPN) Osteoporosis Other chronic pain Pyelonephritis Recurrent aphthous ulcer Sepsis (HCC) Past Surgical History Procedure Laterality Date ABDOMINAL SURGERY ANAL FISTULA SETON PLACEMENT N/A 10/17/2015 Procedure: ANAL FISTULA SETON PLACEMENT; Surgeon: Enrique Bocanegra MD; Location: [facility] OR; Service: General; Laterality: N/A; APPENDECTOMY CHOLECYSTECTOMY ESOPHAGOGASTRODUODENOSCOPY Left 08/06/2015 Procedure: ESOPHAGOGASTRODUODENOSCOPY; Surgeon: Sheng Rios MD; Location: [facility]; Service: Gastroenterology; Laterality: Left; ESOPHAGOGASTRODUODENOSCOPY N/A 04/21/2014 Procedure: ESOPHAGOGASTRODUODENOSCOPY; Surgeon: Bony Petty MD; Location: [facility] BEDSID E PROCEDURE; Service: Gastroenterology; Laterality: N/A; HYSTERECTOMY LAPAROTOMY N/A 04/23/2014 Procedure: EXPLORATION - LAPAROTOMY; Surgeon: Bogdan Moser DO; Location: [facility] MAIN OR; Service: General; Laterality: N/A; LYSIS OF ADHESIONS PORTACATH PLACEMENT Left SMALL INTESTINE SURGERY SPLENECTOMY, TOTAL N/A 04/23/2014 Procedure: SPLENECTOMY; Surgeon: Bogdan Moser DO; Location: [facility] MAIN OR; Service : General; Laterality: N/A; TONSILLECTOMY Social History Social History Social History Marital status: Spouse name: N/A Number of children: N/A Years of education: N/A Occupational History Not on file. Social History Main Topics Smoking status: Current Every Day Smoker Packs/day: 0.50 Years: 45.00 Smokeless tobacco: Never Used Comment: e cigs Alcohol use No Drug use: No Sexual activity: Yes Partners: Male Other Topics Concern Not on file Social History Narrative No narrative on file Current Outpatient Prescriptions: gabapentin (NEURONTIN) 300 MG capsule, Take 300 mg by mouth 3 (three) times daily., Di sp: , Rfl: metoprolol (LOPRESSOR) 25 MG tablet, Take 2 tablets by mouth 2 (two) times daily. (Pat ient taking differently: Take 50 mg by mouth 2 (two) times daily. Indications: 50 mg bid), D isp: , Rfl: omeprazole (PRILOSEC) 40 MG capsule, Take 40 mg by mouth 2 (two) times daily., Disp: , Rfl: predniSONE (DELTASONE) 10 MG tablet, Take 15 mg by mouth daily. Indications: 15 mg, Di sp: , Rfl: promethazine (PHENERGAN) 25 MG tablet, Take 25 mg by mouth every 6 (six) hours as need ed for Nausea., Disp: , Rfl: warfarin (COUMADIN) 6 MG tablet, Take 6 mg by mouth daily., Disp: , Rfl: fluconazole (DIFLUCAN) 150 MG tablet, Take 150 mg by mouth as needed., Disp: , Rfl: lactobacillus (FLORANEX) granules, Take 1 packet by mouth 2 (two) times daily. (Patien t not taking: Reported on 03/01/2017), Disp: 30 each, Rfl: 0 LORazepam (ATIVAN) 0.5 MG tablet, Take 0.5 mg by mouth every 6 (six) hours as needed f or Anxiety., Disp: , Rfl: potassium chloride (MICRO-K) 10 MEQ CR capsule, Take 20 mEq by mouth as needed. Takes when takes furosemide, Disp: , Rfl: Objective Objective: Physical Exam Constitutional: She is oriented to person, place, and time. She appears well-developed and well-nourished. Cardiovascular: Normal rate. Pulmonary/Chest: Effort normal. Abdomina/Gl: Soft. Genitourinary: Neurological: She is alert and oriented to person, place, and time. Skin: Skin is warm and dry. Psychiatric: She has a normal mood and affect. Her behavior is normal. Nursing note and vitals reviewed. Assessment/Plan Assessment and Plan: 61 y.o. 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 She presents with profuse diarrhea an d UTI's. She is here after she got in terms with the idea of the stool diversion/colostomy. She has been on TPN and looks weak. We will schedule her for a diverting colostomy on Tuesday . We will defer the proctectomy to a later stage when she is clinically better and nutrition ally improved. Procedure options, risks, benefits and alternatives reviewed with patient who express(es) understanding. Any and all questions were answered to their satisfaction. 03/02/17: She is scheduled for a colostomy on Tuesday. She is to stop her coumadin. OK to start Lovenox. General diet OK. Continue TPN therapy. She needs to be NPO Tuesday night a nd bowel prepped for surgery. She is ok to discharge home once her hypokalemia is resolved. Patient seen and examined independently, chart reviewed. I concur with the above findings and have discussed them with the patient and her . Enrique Bocanegra MD FACS FASCRS documented in this encounter ED Notes Conversion Transaction, Provider Unknown - 03/01/2017 8:01 PM PSTFormatting of this note m ight be different from the original. ED Notes by Miladys Cardoso RN at 03/01/172000 Author: Miladys Cardoso RN Service: (none) Author Type: Registered Nurse Filed: 03/01/172003 Date of Service: 03/01/172000 Status: Signed Family Law Attorney: Miladys Cardoso RN (Registered Nurse) Per pt and spouse, pt has surg date w/ [facility] on Tue for a colostomy. Pt has a obox of drink boxes ""Impact: advanced recovery drink" from [facility] she is suppose to start ta laura. Label placed on outside box and will let floor nurse aware. Miladys Cardoso RN 03/01/172003 onver roshan Transaction, Provider Unknown - 03/01/2017 7:06 PM PST ED Notes by Missy Lee RN at 03/01/171905 Author: Missy Lee RN Service: (none) Author Type: Registered Nurse Filed: 03/01/171906 Date of Service: 03/01/171905 Status: Signed Family Law Attorney: Missy Lee RN (Registered Nurse) Pt receives TPN at home 16 hr/day, TPN ran out upon arrival to ED. mediport flushed, blood drawn. Missy Lee RN 03/01/171906 Hammad Curry DO - 03/01/2017 7:05 PM PSTFormatting of this note might be different from t velvet original. ED Provider Notes by Hammad Zuñiga DO at 03/01/171904 Author: Hammad Zuñiga DO Service: Emergency Department Author Type: Physician Filed: 03/02/177 Date of Service: 03/01/171904 Status: Signed Family Law Attorney: Hammad Zuñiga DO (Physician) [facility] EMERGENCY DEPARTMENT History of Present Illness Chief Complaint Chief Complaint Patient presents with Abnormal Labs Patient Identification Patient is a 61-year-old female with a history of Crohn's that presents after being told th at her potassium is greatly low. Patient reports she was here to see her surgeon today to femi garcia about getting a colostomy on Tuesday. During the preoperative testing she was found have a very low potassium. Patient reports that she receives TPN and thought that it should have b een normal. Patient also has been having large amounts of diarrhea over the past 4 months. S he has been tested and is C. difficile negative. Patient denies any new symptoms at this erin e. She denies any chest pain, shortest of breath, vomiting, or rash. Patient has felt tired and nauseated today. Patient reports she has had problems with potassium in the past. Patien t reports her symptoms are mild/moderate. Patient also reports that she is mostly on some pa in medicine and would like a dose of pain medicine here. 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 Chronic diarrhea COPD (chronic obstructive pulmonary disease) (HCC) Crohn's disease (HCC) Deep vein thrombosis (DVT) ([facility]) right leg and then travelled to spleen Depression E-coli UTI Embolism and thrombosis of splenic artery Gastroesophageal reflux disease with hiatal hernia GERD (gastroesophageal reflux disease) Hemorrhage of gastrointestinal tract, unspecified Hypertension Hypokalemia 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) Joint pain Microcytic anemia Neuromuscular disorder (HCC) left leg numbness, severe tingling, shooting pain down leg Neuropathy On total parenteral nutrition (TPN) Osteoporosis Other chronic pain Pyelonephritis Recurrent aphthous ulcer Sepsis (HCC) Past Surgical History Procedure Laterality Date ABDOMINAL SURGERY ANAL FISTULA SETON PLACEMENT N/A 10/17/2015 Procedure: ANAL FISTULA SETON PLACEMENT; Surgeon: Enrique Bocanegra MD; Location: [facility] OR; Service: General; Laterality: N/A; APPENDECTOMY CHOLECYSTECTOMY ESOPHAGOGASTRODUODENOSCOPY Left 08/06/2015 Procedure: ESOPHAGOGASTRODUODENOSCOPY; Surgeon: Sheng Rios MD; Location: [facility]COPY; Service: Gastroenterology; Laterality: Left; ESOPHAGOGASTRODUODENOSCOPY N/A 04/21/2014 Procedure: ESOPHAGOGASTRODUODENOSCOPY; Surgeon: Bony Petty MD; Location: [facility] BEDSIDE PROCEDURE; Service: Gastroenterology; Laterality: N/A; HYSTERECTOMY LAPAROTOMY N/A 04/23/2014 Procedure: EXPLORATION - LAPAROTOMY; Surgeon: Bogdan Moser DO; Location: [facility] MAIN O R; Service: General; Laterality: N/A; LYSIS OF ADHESIONS PORTACATH PLACEMENT Left SMALL INTESTINE SURGERY SPLENECTOMY, TOTAL N/A 04/23/2014 Procedure: SPLENECTOMY; Surgeon: Bogdan Moser DO; Location: [facility] MAIN OR; Service: General; Laterality: N/A; TONSILLECTOMY Prior to Admission medications Medication Sig Start Date End Date Taking? Authorizing Provider gabapentin (NEURONTIN) 300 MG capsule Take 300 mg by mouth 3 (three) times daily. 08/21/15 Yes Historical Provider lactobacillus (FLORANEX) granules Take 1 packet by mouth 2 (two) times daily. 08/08/15 Yes Deanne Henson MD LORazepam (ATIVAN) 0.5 MG tablet Take 0.5 mg by mouth every 6 (six) hours as needed for Anx iety. Yes Historical Provider metoprolol (LOPRESSOR) 25 MG tablet Take 2 tablets by mouth 2 (two) times daily. Patient taking differently: Take 50 mg by mouth 2 (two) times daily. Indications: 50 mg bid 11/10/14 Yes Migue Weldon MD omeprazole (PRILOSEC) 40 MG capsule Take 40 mg by mouth 2 (two) times daily. Yes Historic al Provider oxyCODONE-acetaminophen (PERCOCET) 10-325 MG per tablet Take 1 tablet by mouth every 4 (fou r) hours as needed for Pain for up to 10 days. 03/01/17 03/11/17 Yes JENARO Spencer potassium chloride (MICRO-K) 10 MEQ CR capsule Take 20 mEq by mouth as needed. Takes when t akes furosemide Yes Historical Provider predniSONE (DELTASONE) 10 MG tablet Take 15 mg by mouth daily. Indications: 15 mg Yes His torical Provider promethazine (PHENERGAN) 25 MG tablet Take 25 mg by mouth every 6 (six) hours as needed for Nausea. Yes Historical Provider warfarin (COUMADIN) 6 MG tablet Take 6 mg by mouth daily. Yes Historical Provider fluconazole (DIFLUCAN) 150 MG tablet Take 150 mg by mouth as needed. 08/13/15 03/01/17 Histo rical Provider Allergies Allergen Reactions Demerol [Meperidine] Other (See Comments) Unknown Erythromycin Other (See Comments) unknown Levofloxacin Other (See Comments) tendinitis Reglan [Metoclopramide] Agitation Unknown Penicillins Nausea and Vomiting Social History Social History Marital status: Spouse name: N/A Number of children: N/A Years of education: N/A Occupational History Not on file. Social History Main Topics Smoking status: Current Every Day Smoker Packs/day: 0.50 Years: 45.00 Smokeless tobacco: Never Used Comment: e cigs Alcohol use No Drug use: No Sexual activity: Yes Partners: Male Other Topics Concern Not on file Social History Narrative No narrative on file Family History Problem Relation Age of Onset Malig hypertherm Neg Hx ROS Review of Systems Constitutional: Positive for fatigue. Negative for fever. HENT: Negative for drooling. Respiratory: Negative for cough, chest tightness and shortness of breath. Cardiovascular: Negative for chest pain. Gastrointestinal: Positive for diarrhea. Negative for abdominal distention, abdominal pain and anal bleeding. Genitourinary: Negative for dysuria. Musculoskeletal: Negative for joint swelling. Skin: Negative for pallor and rash. Neurological: Negative for dizziness and numbness. Psychiatric/Behavioral: Negative for agitation. Vitals: 03/01/17 2342 BP: 129/58 Pulse: 95 Resp: 18 Temp: 98.2 F (36.8 C) SpO2: 94% Physical Exam Constitutional: She is oriented to person, place, and time. She appears well-developed. HENT: Head: Atraumatic. Mouth/Throat: Oropharynx is clear and moist. Multiple missing teeth Eyes: EOM are normal. Pupils are equal, round, and reactive to light. Neck: Normal range of motion. Neck supple. Cardiovascular: Normal rate and regular rhythm. No murmur heard. Pulmonary/Chest: Effort normal and breath sounds normal. No respiratory distress. She has n o wheezes. Abdomina/Gl: Soft. Bowel sounds are normal. She exhibits no distension. There is no tendern ess. Musculoskeletal: Normal range of motion. Neurological: She is alert and oriented to person, place, and time. Skin: Skin is warm and dry. No rash noted. Psychiatric: She has a normal mood and affect. ED Course Procedures Medical Decision Making and Emergency Department Course Discussed with the patient repeat labs here to confirm the hypokalemia, we will start potas sium, will give her pain and nausea medicine, and admit her to the hospital. This is likely due to, patient of the diarrhea and TPN. ED Department Course 7:43 PM Pt's potassium is still low. 7:47 PM Pt has WBC of 25,000. It was elevated from 17,000 on the 7th. 7:[address] Myrick will see the pt for admission. Patient is agreeable to admission. ED Course Records Reviewed Old medical records. Patient told to come in today for low potassium. One prior emergency department visit for u nrelated complaint. History of hypertension, and hypokalemia, gastroesophageal reflux diseas e, sepsis, and congestive heart failure Labs & Radiology Results Laboratory Evaluation Results Procedure Component Value Ref Range Date/Time Cardiac Panel [[id number]] (Abnormal) Collected: 03/01/171900 Order Status: Completed Updated: 03/01/172000 WBC 25.02 (H) 3.80 - 11.00 K/uL RBC 4.64 3.70 - 5.10 M/uL HGB 10.1 (L) 11.3 - 15.5 g/dL HCT 33.4 (L) 34.0 - 46.0 % MCV 72.1 (L) 80.0 - 100.0 fl MCH 21.8 (L) 27.0 - 34.0 pg MCHC 30.2 (L) 32.0 - 35.5 g/dL RDW SD 58.2 (H) 37 - 53 fl PLT 631 (H) 150 - 400 K/uL MPV 7.8 fl DIFF TYPE MANUAL Neutrophils Manual 63 % Lymphocytes Manual 21 % Atypical Lymphocytes Relative 9 % Monocytes Manual 5 % Eosinophils Manual 2 % Neutrophils Absolute 15.77 (H) 1.90 - 7.40 K/uL Lymphocytes Absolute 5.25 (H) 1.00 - 3.90 K/uL Atypical Lymphocytes Absolute 2.25 (H) 0.00 K/uL Monocytes Absolute 1.25 (H) 0.00 - 0.80 K/uL Eosinophils Absolute 0.50 0.00 - 0.50 K/uL Platelet Estimate INCREASED MORPHOLOGY NORMAL PLT MORPH Diff Comment FEW MACHADO JOLLY BODIES SEEN SODIUM 144 135 - 145 mmol/L POTASSIUM 2.3 (LL) 3.5 - 4.9 mmol/L CHLORIDE 114 (H) 99 - 109 mmol/L CO2 16 (L) 23 - 32 mmol/L ANION GAP AGAP 16 5 - 20 mmol/L GLUCOSE 106 (H) 65 - 99 mg/dL BUN 27 (H) 8 - 25 mg/dL CREATININE 0.78 0.50 - 1.00 mg/dL BUN/CREAT 35 CALCIUM 8.9 8.5 - 10.5 mg/dL TOTAL PROTEIN 7.7 6.3 - 8.2 g/dL Albumin 3.0 (L) 3.3 - 4.8 g/dL GLOBULIN 4.8 1.3 - 4.9 g/dL A/G 0.6 (L) 1.0 - 2.4 TBIL 0.5 0.1 - 1.5 mg/dL ALK PHOS 246 (H) 35 - 115 U/L AST 48 (H) 10 - 45 U/L ALT 61 10 - 65 U/L EGFR >60 >60 mL/min/1.73m2 CPK 56 30 - 240 U/L INR 2.1 APTT 32 23 - 32 seconds MMB 2.6 0.5 - 3.6 ng/mL CK-MB Index 4.6 Radiology and EKG Evaluation EKG at 1845 Sinus tachycardia with rate of 109 KS interval 338 QTC 514 Nonspecific T-wave changes, no significant change from the prior on 10 10 15. First degre e block and unchanged, QT length and more than normal, likely secondary to potassium changes . Interpreted by me, Hammad Zuñiga DO, at time of clinical encounter. Imaging Results None Diagnosis & Disposition ED Diagnoses Final diagnoses Hypokalemia Elevated blood pressure reading Disposition: ED Disposition ED Disposition Condition Comment Admit/Observation Bed request special needs: None Diagnosis?: hypokalemia Attending Provider Note: IHammad DO personally performed the services described in this documentation, as scribed by Prashanth Benedict in my presence, and it is both accurate an d complete. Chart Reviewed and Completed: 03/01/2017 8:30 PM Scribe: Arlen Baptiste, scribing for and in the presence of Hammad Zuñiga DO. Signed by: Arlen Kamara 03/01/2017 8:30 PM Hammad Zuñiga DO 03/02/17 0207 onversion Trans action, Provider Unknown - 03/01/2017 6:53 PM PST ED Notes by Snow Perez RN at 03/01/171852 Author: Snow Perez RN Service: (none) Author Type: Registered Nurse Filed: 03/01/171852 Date of Service: 03/01/171852 Status: Signed Family Law Attorney: Snow Perez RN (Registered Nurse) Bed: 18 Expected date: Expected time: Means of arrival: Comments: Gloria Salgado RN 03/01/171852 docume nted in this encounter Miscellaneous Notes Plan of Care - Conversion Transaction, Provider Unknown - 03/02/2017 12:33 AM PST Plan of Care by Mila Dolan RN at 03/02/1732 Author: Mila Dolan RN Service: (none) Author Type: Registered Nurse Filed: 03/02/1732 Date of Service: 03/02/1732 Status: Signed Family Law Attorney: Mila Dolan RN (Registered Nurse) Problem: Safety Goal: Patient will be injury free during hospitalization Assess and monitor vitals signs, neurological status including level of consciousness and o rientation. Assess patient's risk for falls and implement fall prevention plan of care and i nterventions per hospital policy. Ensure arm band on, uncluttered walking paths in room, adequate room lighting, call light a nd overbed table within reach, bed in low position, wheels locked, side rails up per policy, and non-skid footwear provided. Outcome: Progressing Room kept clutter free to prevent falls Problem: Daily Care Goal: Daily care needs are met Assess and monitor ability to perform self care and identify potential discharge needs. Outcome: Progressing All needs met at this time iscel laneous - Conversion Transaction, Provider Unknown - 03/01/2017 9:09 PM PSTFormatting of th is note might be different from the original. Medication History by Blanca Fernandez RPH at 03/01/172108 Author: Blanca Fernandez RPH Service: Pharmacy Author Type: Pharmacist Filed: 03/01/172108 Date of Service: 03/01/172108 Status: Signed Family Law Attorney: Blanca Fernandez RPH (Pharmacist) Rx Admission Medication History Note I have reviewed the medication history for appropriate doses obtained by: Last Pattern Grader . After reviewing the home medication list : I agree with the home medication list. - Reviewed medication history with retail pharmacy merchandiser due to computer access - Patient has not been taking potassium as this was only taken with furosemide in 2014 and therefore it was removed from home medication list. - Patient is on metoprolol 50 mg BID Please Review and Order Home Medications as necessary. Thanks Blanca Fernandez RPH 03/01/2017 9:08 PM docume nted in this encounter Plan of [...] | ECG 12 LEAD | Routin | 03/01/2017 | | Results for this | | | e | 6:45 PM | | procedure are in the [...] | | | | | performed at [facility] | | | | | | [place] | | | | | | [address] | | | | + + + [...] + +---------+ + + External Lab: CBC (03/02/2017 4:05 AM PST) + + + [...] + + + + | Non- | 4.04 | 3.70 - 5.10 | EXTERNAL | | | Red Blood | | M/uL | LAB | | | Cells | | | | | | Counted | | | | | + + + + + + | Hemoglobin | 8.5 (L) | 11.3 - 15.5 [...] LAB | | | | performed at [facility], [address] | | | | | | [place], | | | | | | [place] [address] | | | | + + + [...] + + + + | TSH | 1.47Comment: Testing | 0.45 - 5.10 | EXTERNAL | | | | performed at [facility], [address] | uIU/mL | LAB | | | | [place], | | | | | | [place] [address] | | | | + + + [...] | | | | | [place] [address] | | | | + + + [...] EXTERNAL | | | | performed at [facility], [address] | | LAB | | | | [place], | | | | | | [place] [address] | | | | + + + [...] | | | | | | at [facility], [address] | | | | | | [place], | | | | | | [place] [address] | | | | + + + [...] + + + + + -+ | Non- | 4.64 | 3.70 - 5.10 | EXTERNAL | | | Red Blood | | M/uL | LAB | | | Cells | | | | | | Counted | | | | | + + + + + -+ | Hemoglobin | 10.1 (L) | 11.3 - 15.5 [...] | | | | | | DR ZUÑIGA ED @ [address] | | | | | | [...] at | | | | | | [facility];[address];[place] [address] | | | | + + + + + + + + | Specimen | + + | | + + + +---------+ + + | Performing | Address | City/State/Zipcode | Phone Number | | Organization | | | | + +---------+ + + | EXTERNAL LAB | | | | + +---------+ + + ECG 12 lead (03/01/2017 6:45 PM PST) + + + + + + | Component | Value | Ref Range | Performed | Pathologist | | | | | At | Signature | + + + + + + | DIAGNOSIS: | Sinus tachycardia with | | EXTERNAL | | | | 1st degree A-V blockST & | | LAB | | | | T wave abnormality, | | | | | | consider inferior | | | | | | ischemiaST & T wave | | | | | | abnormality, consider | | | | | | anterior | | | | | | ischemiaAbnormal ECGWhen | | | | | | compared with ECG of | | | | | | 01-MAR-2017 16:59,[place] | | | | | | interval has | | | | | | increasedThis ECG | | | | | | contains Unconfirmed | | | | | | Interpretation | | | | | | Statements. See ED | | | | | | Record for Physician | | | | | | Interpretation. | | | | | | Confirmed by MUSE READ | | | | | | ONLY, -COMPUTER ([id number]), | | | | | | publications editor Hieu Tabor | | | | | | Gustavo ([id number]) on 03/01/2017 | | | | | | 11:34:57 PM | | | | + + + + + + + + | Specimen | + + | | + + + + + | Narrative | Performed At | + + + | Historically converted procedure from [facility] environment | EXTERNAL LAB | + + [...]
--- OUTSIDE RECORDS SUMMARY | ~2019-11-05 | XMS | Encounter Summary ---
Demographics + + + | Address | [address] | | | [place] [address] | + + + | Home Phone | | + + + | Preferred Language | Unknown | + + + | Marital Status | | + + + | Mosque Affiliation | NRP | + + + | Race | White | + + + | Ethnic Group | Not or | + + + Author + + + | Author | [facility] | + + + | Organization | [facility] | + + + | Address | Unknown | + + + | Phone | Unavailable | + + + Support + + + + + | Name | Relationship | Address | Phone | + + + + + | Kole Willingham | [place] | [address] | | | | | [place], [place] | | | | | [address] | | + + + + + | Cami Sawyer | ECON | Unknown | | + + + + + Care Team Providers + +------+ + | Care Hardwood Sawyer Name | Role | Phone | + [...] | | 2016 | | Center at [facility] [address] | | - General | | | | [facility] | | | | | | for Health and | | | | | | [facility] [address] | | | | | | [place], [place] | | | | | | [address] | | | | | | [phone] | | | +--------+ + + + [...]
--- OUTSIDE RECORDS SUMMARY | ~2019-11-05 | XMS | Encounter Summary ---
Demographics + + + | Address | [address] | | | [place] [address] | + + + | Home Phone [...] Team Providers + +------+ + | Care Receiving Worker Name | Role | Phone | + +------+ + PCP | Unavailable | + +------+ + Reason for Visit + +--------+ + | Reason | Onset | Comments | | | Date | | + +--------+ + | Follow-up | 03/12/ | | | | 2019 | | + +--------+ + Encounter Details +--------+ + + + + | Date | Type | Department | Care Team | Description | +--------+ + + + + | 03/12/ | Telephone | [facility] | [place], | Follow-up | | 2019 | | GENERAL SURGERY [address] | [address] | | | | | [address] | [address] | | | | | [place], [place] | [place] [address] | | | | | [address] | [phone] | | | | | [phone] | | | +--------+ + + + [...] + + documented as of this encounter Miscellaneous Notes Telephone Encounter - Lisbeth Smith - 03/14/2019 3:35 PM PSTCarla, is returning call for Follow-up and would like a call back. Additional Call Details: returning call to speak to medical editor also schedule an radha ointment. Patient states she is coming from [facility] in the morning would li ke schedule and appointment tomorrow. Home number elephone Encounter - Eliza Jay - 03/13/2019 4:32 PM PSTForwarding to Nelida for returning phone call.Electro nically signed by Eliza Potter at 03/13/2019 4:32 PM PSTTelephone Encounter - Madison Sanchez - 03/13/2019 2:49 PM PSTCarla, is returning call for Follow-up and would like a call back. Additional Call Details: Patient is returning call to schedule an appointment regarding he fernie mcintyre. Please call her back at the home number. elephone Encounter - Dulce Sun, Laborer Rags - 03/13/2019 8:09 AM PSTI have attempted to contact th is patient by phone with the following results: LVM informing patient I am returning her johnson ne call to make an appointment regarding her seton. Left office phone number and encouraged patient to return my call. elephone Encounter - HoneyEliza - 03/12/2019 2:13 PM PSTCarla, is calling regarding Follow-up and would like a call back. Additional Call Details: Patient is requesting call back from provider regarding "strings for fistula" she stated she is needing the "strings removed" and is wanting to speak with e provider about it. If this is a symptom based call, was patient offered triage? Not Applicable If this is a symptom based call and you were unable to immediately transfer the call to a tamera cisneros director of software engineering was caller made aware that if at any time she feels it is an emergency they sh ould call 911 or go to the nearest emergency room? not applicable documented in this encounter Plan of Treatment [...]
--- OUTSIDE RECORDS SUMMARY | ~2019-11-05 | XMS | Encounter Summary ---
Demographics + + + | Address | [address] | | | [place] [address] | + + + | Home Phone | | + + + | Preferred Language | Unknown | + + + | Marital Status | | + + + | Sikhism Affiliation | NRP | + + + | Race | White | + + + | Ethnic Group | Not or | + + + Author + + + | Author | [facility] | + + + | Organization | [facility] | + + + | Address | Unknown | + + + | Phone | Unavailable | + + + Support + + + + + | Name | Relationship | Address | Phone | + + + + + | Kole Willingham | [place] | [address] | | | | | [place], [place] | | | | | [address] | | + + + + + | Cami Sawyer | ECON | Unknown | | + + + + + Care Team Providers + +------+ + | Care Submarine Advisory Team Watch Officer Name | Role | Phone | [...] 2011 | Event | [facility] | [address] | | | | | [facility] | [address] | | | | | Hospital Admitting | [place], [place] | | | | | Desk Located on the | [phone] | | | | | 9th floor | [phone] | | | | | [facility] [place] | | | | | | [address] | Bigg Smalls MD | | | | | | [address] | | | | | | [address] | | | | | | [place], [place] | | | | | | [address] | | | | | | [phone] | | | | | | | [...] | Froylan Vázquez CRNA 15 min. Break [phone] | | | 9 | | | [...] Smith RN | | Tanvi | | DRIER [employer] PULVER[employer]ER TENDER | | | y Cath | | [...] Cole RN | | Periph | | DRIER AND PULVER[employer]ER TENDER | | | eral | | | [...]
--- OUTSIDE RECORDS SUMMARY | ~2019-11-05 | XMS | Encounter Summary ---
Demographics + + + | Address | [address] | | | [place] [address] | + + + | Home Phone [...] + + + | Author | [facility] | + + + | Organization | [facility] | + + + | Address | Unknown | + + + | Phone | Unavailable | + + + Support + + + + + | Name | Relationship | Address | Phone | + + + + + | Kole Hartley | LAMONT | [address] | | | | | [place], [place] | | | | | [address] | | + + + + + | Cami Sawyer | ECON | Unknown | | + + + + + Care Team Providers + +------+ + | Care Tow Motor Mechanic Name | Role | Phone | + [...] | | CONTRAST | [address] | [address] [facility] | | | | | | [address] | Hospital, | | | | | | [facility] | 10th Floor | | | | | | Hospital | [place], [place] | | | | | | [place], [place] | [address] | | | | | | [address] | Phone: | | | | | | Phone: | [phone] | | | | | | [phone] | Fax: | | | | | | Fax: | [phone] | | | | | | [phone] | | +--------+--------+ + + + + Diagnostic Testing (Routine) +--------+--------+ + + + + | Status | Reason | Specialty | Diagnoses / | Referred By | Referred To | | | | | Procedures | Contact | Contact | +--------+--------+ + + + + | Closed | | Radiology | Procedures | Emerson, | Zzrad Vasc | | | | | VASC LAB | Raphael Saab MD | [address] | | | | | [address] | | [address] | | | | | [address] | | Loop | | | | | WAVEFORM | | Mailcode: | | | | | BILAT | | [id number] | | | | | | | Physician's | | | | | | | Pavilion | | | | | | | [place], [place] | | | | | | | [address] | | | | | | | Phone: | | | | | | | [phone] | | | | | | | Fax: | | | | | | | [phone] | +--------+--------+ + + + + Diagnostic Testing (Routine) +--------+--------+ + + + + | Status | Reason | Specialty | Diagnoses / | Referred By | Referred To | | | | | Procedures | Contact | Contact | +--------+--------+ + + + + | Closed | | Radiology | Procedures | Condron, | [facility] | | | | | VASC LAB | Becca Vega MD | [address] | | | | | VEIN MAPPING | [address] | [address] | | | | | LOWER | Road BEND, | Loop | | | | | EXTREMITY | [place] [address] | Mailcode: | | | | | BILAT | Phone: | [id number] | | | | | | [phone] | Physician's | | | | | | Fax: | Pavilion | | | | | | [phone] | [place], [place] | | | | | | | [address] | | | | | | | Phone: | | | | | | | [phone] | | | | | | | Fax: | | | | | | | [phone] | +--------+--------+ + + + + Diagnostic Testing (Routine) +--------+--------+ + + + + | Status | Reason | Specialty | Diagnoses / | Referred By | Referred To | | | | | Procedures | Contact | Contact | +--------+--------+ + + + + | Closed | | Radiology | Procedures | Santoyo, | Elizabeth Vasc | | | | | VASC LAB | Dariela Saab MD | [address] | | | | | VENOUS | | [address] | | | | | DUPLEX LOWER | | Loop | | | | | EXTREMITY | | Mailcode: | | | | | BILAT COMP | | [address] | | | | | | | Physician's | | | | | | | Pavilion | | | | | | | [place], [place] | | | | | | | [address] | | | | | | | Phone: | | | | | | | [phone] | | | | | | | Fax: | | | | | | | [phone] | +--------+--------+ + + + + Diagnostic [...] | | | Dariela Saab MD | [facility] [address] | | | | | TRANSTHORACI | | [address] | | | | | C | | [address] | | | | | ECHOCARDIOGR | | [place] | | | | | AM, ADULT | | [facility] | | | | | | | floor | | | | | | | [place], [place] | | | | | | | [address] | | | | | | | Phone: | | | | | | | [phone] | +--------+--------+ + + + + Diagnostic Testing (Routine) +--------+--------+ + + + + | Status | Reason | Specialty | Diagnoses / | Referred By | Referred To | | | | | Procedures | Contact | Contact | +--------+--------+ + + + + | Closed | | Radiology | Procedures | Jyoti, | Elizabeth Vasc | | | | | VASC LAB | Becca Vega MD | [address] | | | | | ARTER DUPLEX | [address] | [address] | | | | | LOWER | Road BEND, | Loop | | | | | EXTREMITY | [place] [address] | Mailcode: | | | | | BILATERAL | Phone: | [address] | | | | | COMPLETE | [phone] | Physician's | | | | | | Fax: | Pavilion | | | | | | [phone] | [place], [place] | | | | | | | [address] | | | | | | | Phone: | | | | | | | [phone] | | | | | | | Fax: | | | | | | | [phone] | +--------+--------+ + + + + Diagnostic Testing (Routine) +--------+--------+ + + + + | Status | Reason | Specialty | Diagnoses / | Referred By | Referred To | | | | | Procedures | Contact | Contact | +--------+--------+ + + + + | Closed | | Radiology | Procedures | Condron, | Zzrad Vasc | | | | | VASC LAB | Becca Vega MD | [address] | | | | | CAROTID | [address] | [address] | | | | | DUPLEX | Road BEND, | Loop | | | | | COMPLETE | [place] [address] | Mailcode: | | | | | BILATERAL | Phone: | [id number] | | | | | | [phone] | Physician's | | | | | | Fax: | Pavilion | | | | | | [phone] | [place], [place] | | | | | | | [address] | | | | | | | Phone: | | | | | | | [phone] | | | | | | | Fax: | | | | | | | [phone] | +--------+--------+ + + + + Diagnostic Testing (Routine) +--------+--------+ + + + + | Status | Reason | Specialty | Diagnoses / | Referred By | Referred To | | | | | Procedures | Contact | Contact | +--------+--------+ + + + + | Closed | | Radiology | Procedures | Adam Galvez Vasc | | | | | VASC LAB | MD Sandoval | [address] | | | | | ABDOMINAL | | [address] | | | | | DUPLEX COMP | | Loop | | | | | ARTERY VEIN | | Mailcode: | | | | | | | [address] | | | | | | | Physician's | | | | | | | Pavilion | | | | | | | [place], [place] | | | | | | | [address] | | | | | | | Phone: | | | | | | | [phone] | | | | | | | Fax: | | | | | | | [phone] | +--------+--------+ + + + + Diagnostic Testing (Routine) +--------+--------+ + + + + | Status | Reason | Specialty | Diagnoses / | Referred By | Referred To | | | | | Procedures | Contact | Contact | +--------+--------+ + + + + | Closed | | Radiology | Procedures | Galvez, | Elizabeth Vasc | | | | | VASC LAB | MD Sandoval | [address] | | | | | ARTER DUPLEX | | [address] | | | | | LOWER | | Loop | | | | | EXTREMITY | | Mailcode: | | | | | BILATERAL | | [address] | | | | | COMPLETE | | Physician's | | | | | | | Pavilion | | | | | | | [place], [place] | | | | | | | [address] | | | | | | | Phone: | | | | | | | [phone] | | | | | | | Fax: | | | | | | | [phone] | +--------+--------+ + + + + Reason [...] + + | 03/12/ | Hospital | [facility] [address] | [address], | | | 2011 - | Encounter | [address] | [address] | | | | | [address] [facility] | [facility] [place] | | | 04/01/ | | [place], [place] | [address] | | | 2011 | | [address] | [phone] | | | | | [phone] | | | | | | | Chary Doherty, | | | | | | [address] | | | | | | [address] | | | | | | [place], [place] | | | | | | [address] | | | | | | [phone] | | | | | | | | | | | | Xin Rust | | | | | | MD Nena [address] | | | | | | Romeo [facility] | | | | | | [place], [place] | | | | | | [address] | | | | | | [phone] | | | | | | | | | | | | Osbaldo Garcia MD | | | | | | [address] | | | | | | [facility], | | | | | | [place] [address] | | | | | | [phone] | | | | | | | [...] in this encounter Discharge Summaries Raphael Norman MD - 04/04/2012 3:35 PM PST INPATIENT PHYSICIAN [...] Arterial thrombi: the patient was admitted to [facility] from [facility] because she presented wit h nausea, bilious vomiting and was found by CT scan to have bowel wall thickening, 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 At arrival to [facility] it was learned that she did NOT indeed have ischemic colitis. 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 She underwent embolectomy on 03/17, which resulted in lutheran of flow and no loss of tissue [...] was agreed that the patient needed a mcfp treatment and we settled o n remicade. 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 Go to the hospital on Tuesday [...] forming. Please call your GI doctor in [facility] to arrange for your second infusion of [...] whether or not the INR is truly food service sales representatives of anticoagulation. In patients with APLA the [...] Xin Rust MD - 04/01/2012 10:33 PM PSTGM3 Internal Medicine Attending Interval note [...] I NR on Tuesday. KIRIT MD YOCASTA [facility] DEPARTMENT: [id number]- [facility] Faculty PPV Place of Service:- Inpatient Date of Service: 04/01/2012 CSN: [id number] Suggested Modifier: Resident Involved: Yes Suggested CPT: 44606- Dishcarge < 30 min Electronically signed by [...] questions. Debi Oconnor MD GI/Hepatology Fellow Pager: [phone] INTERVAL HISTORY: MRI abdomen shows no abscess; [...] risk of emboli, I called Dr. Rodriges (vocational psychologist for her PCP) to coordinate f/u of [...] noted any additions above. KIRITMarisa RUST MD [facility] DEPARTMENT: [id number]- [facility] Faculty PPV Place of Service:- Inpatient Date of Service: 03/31/2012 CSN: [id number] Suggested Modifier: Resident Involved: Yes Suggested CPT: 72088- Subsequent, Detailed/high complex, 35 min Davonte De [...] PPD, GI will procede with Remicade loading Satur day. Stabilizing electrolyte dyscrasias with better PO intake. [...] state: J Gastroenterol. 2004 Jan;39(10):948-54. PubMed PMID: [id number]. Consulted [facility] for further studies on platelet inhibitor and [...] no insurance. Wanting to go home for Lele. Nurse repor ts that she has admitted [...] income that does not q ualify for Moblyng. F/E/N Thrombosis ppx: Warfarin, Lovenox bridge Glucose: not indicated Diet: regular Code: Do Not Resuscitate/Do Not Intubate This patient was seen with GM3, refer to Attending and Resident notes for assessment and pl an. Nuñez [place], Sub-Studio Operations Manager Pgr: [phone] Ajay De La Rosa MD - 03/30/2012 [...] bridge after d/c until coumading therapeutic with health care manager through medication assistance program Hypoalbuminemia (03/14/2012) Assessment: [...] noted any additions above. KIRIT MD YOCASTA [facility] DEPARTMENT: [id number]- [facility] Faculty PPV Place of Service:- Inpatient Date of Service: 03/30/2012 CSN: [id number] Suggested Modifier: GC Resident Involved: Yes Suggested CPT: 99612- Subsequent, Detailed/high complex, 35 min Debi Yepez [...] follow closely Shaun SAEED GI Fellow Pg [phone] signed by Debi Oconnor MD at 03/30/2012 5:32 PM Jacoby Ko MD - 03/30/2012 10:25 AM PSTFormatting of this note might be different from the origi nal. [facility] DEPARTMENT OF SURGERY Daily Progress Note PROGRESS NOTE: Attending Physician: Xin Rust MD 03/31/2012 Subjective/Overnight Events: - latest CT shows resolution of abscess - no GI bleeding - no rectal/anal pain - tolerating reg diet MEDICATIONS: Reviewed in [facility] VITAL SIGNS: Refer to [facility] Intake/Output Summary (Last 24 hours) at [...] concerns. Jacoby Tovar MD Surgery, R2 Diagnoses: [id number] Crohn disease This assessment and plan was [...] state: J Gastroenterol. 2004 Jan;39(10):948-54. PubMed PMID: [id number]. Consulted Heme for further studies on platelet [...] might be different from the jonathon ivy Transfer Accept Note Patient: Mackenzie Hartley Attending: [...] Nathan Weeks MD Internal Medicine PGY1 Pager [phone] ecilia Toney MD - 03/29/2012 6:37 PM PST Vascular [...] team. Debi Oconnor MD GI Fellow Pager [phone] signed by Debi Oconnor MD at 03/29/2012 [...] planning) Debi Oconnor MD Fellow, Gastroenterology pager: [phone] signed by Debi Oconnor MD at 03/29/2012 [...] note for this encounter. OSBALDO GARCIA MD [facility] [address] [place], [place] [id number] Andrew Shah MD - 10:41 AM PST [facility] DEPARTMENT OF SURGERY Daily Progress Note PROGRESS NOTE: Attending Physician: Osbaldo Garcia MD 03/29/2012 Subjective/Overnight Events: - bowel prep initiated - Hct stable - no hematochezia or hemetemesis - MEDICATIONS: Reviewed in [facility] VITAL SIGNS: Refer to [facility] Intake/Output Summary (Last 24 hours) at [...] GI Jacoby Tovar MD Surgery, R2 Diagnoses: [id number] Crohn disease This assessment and plan was [...] Osbaldo Mcfarlane MD - 03/29/2012 6:06 [facility] Author: OSBALDO GARCIA [...] myself provided conscious sedation. OSBALDO GARCIA MD [facility] [address] [address] [place] [address] I spent 35 min in critical care (not including procedures) [facility] DEPARTMENT: MICU, [facility]- [id number] Place of Service: Date of Service: 03/29/2012 CSN: [id number] Modifiers:GC Resident Involved: yes Suggested CPT: 11072 Critical Care, Initial 30-74 minutes Carlton Godwin [...] day of transfer to MICU (1 05/29/11), green surgery informed us that according to the [...] Date 03/28/12 0700 - 03/29/12 0659 03/29/12 0700 - 03/30/12 0659 Shift 5332-7862 0014-5100 4941-7314 Daily Total 3729-8307 7722-3467 1640-7066 Daily Total I N T A K E P.O. 1750 2525 4275 I.V. 934 1898 571 0909 Shift Total 934 3740 3450 8124 O U T P U T Urine 1075 2950 1875 5900 Urine 1075 2950 1875 5900 Other 575 437 563 9754 Measured Stool Output 350 425 775 Stool/Urine Mix 575 575 Shift Total 1650 3300 2300 7250 NET -104 431 6693 874 Intake/Output Summary (since admission) at 03/12/12 1910 Last data filed at 03/29/12 0547 Gross for the last 17 days Intake 64538 ml Output 05115 ml Net since Admission -07137 ml Physical Exam: General Appearance: middle aged [...] 8 mg/hr Intravenous CONTINUOUS 8 mg/hr (03/29/12 0152) Lines/Tubes: PICC left PIV R Assessment: 56 [...] Carlton Betancourt DO PGY-1 Internal Medicine Pager [phone] Debi Yepez MD - 03/11 4:31 PM [...] 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 Debi Oconnor MD GI/Hepatology Fellow Pager: [phone] INTERVAL HISTORY: Episode of melena last night [...] patient in the past. OSBALDO GARCIA MD [facility] [address] [address] I spent 35 min in critical care (not including procedures) [facility] DEPARTMENT: [facility], [facility]- [id number] Place of Service: Date of Service: 03/28/2012 CSN: [id number] Modifiers:GC Resident Involved: yes Suggested CPT: 61206 Critical Care, Initial 30-74 minutes Carlton Godwin [...] oz) Date 03/27/12 07 - 03/28/12 0659 03/28/12 07 - 03/29/12 0659 Shift 9552-2000 2803-0292 9234-1480 Daily Total 6350-9641 7665-7973 7843-6146 Daily Total I N T A K E P.O. 240 300 540 I.V. 404 404 934 934 Blood 1300 1300 Shift Total 119 158 9000 2244 934 934 O U T P U T Urine 500 1200 1700 1075 1075 Urine 500 1200 1700 1075 1075 Other 575 575 Stool 1 1 2 Stool/Urine Mix 575 575 Shift Total 500 1200 1700 1650 1650 NET -260 300 504 544 -711 -716 Intake/Output Summary (since admission) at 03/12/12 1910 Last data filed at 03/28/12 1400 Gross for the last 16 days Intake 57903 ml Output 06534 ml Net since Admission -90097 ml Physical Exam: General Appearance: tearful middle [...] to go but MICU attending conversation with osiris floresogy decided to proceed with CT abdomen with [...] Carlton Betancourt DO PGY-1 Internal Medicine Pager [phone] Andrew Shah MD - 6:52 AM PST ATTENDING PHYSICIAN STATEMENT I saw Mackenzie Hartley and have confirmed the findings documented [...] Andrew Babin MD at 03/28/2012 4:27 PM PSTLofbmari , Gayla Patiño MD - 03/28/2012 6:52 AM PST INPATIENT PROGRESS NOTE Author; GAYLA LEONARD MD Attending Physician: Osbaldo Garcia MD Interval Hx: Transferred to ICU [...] the near future. Patient discussed with Dr. Babin who agrees with the above assessment and [...] Sukumar Zuniga DO Internal Medicine PGY-2 Pg [phone] Davonte De La Rosa MD - 03/27/2012 10:50 PM PSTGM3 Internal Medicine Attending Interval note [...] and two radiologists - all rec against jayda rodríguez bc size and loculation would mean [...] noted any additions above. KIRIT MD YOCASTA [facility] DEPARTMENT: [id number]- [facility] Faculty PPV Place of Service:- Inpatient Date of Service: 03/27/2012 CSN: [id number] Suggested Modifier: GC Resident Involved: Yes Suggested CPT: 05348- Subsequent, Detailed/high complex, 35 min Marely Mccann [...] was discussed and formulated with gastroenterology at [facility], Dr. Hennessy. Please call with any questions. Debi Oconnor MD GI/Hepatology Fellow Pager: [phone] INTERVAL HISTORY: Imaging reviewed with radiology; too [...] Hours (or 3 results): Recent Labs Basename 03/27/1252603/26/12 0436 03/25/12 0313 NA 143 142 141 K 3.6 3.3* 3.3* CL 113* 112* 110* BICARB 22 21 23 BUN 3* 3* 3* CR 0.53* 0.51* 0.56* CA 7.8* 7.7* 7.6* MG 1.7* 1.5* 1.7* PO4 -- 1.5* 1.4* Lab Results Component Value Date INRPT 1.83* 03/27/2012 IMAGING Dung Victor - 2 11:30 AM [facility] NOTE: Visited with Patient. 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 Director Of Psychology team will follow as needed. Chaplain Dnug Riley M.Div., [facility] [phone] Pager #[phone]; #[phone] Xin De La Rosa MD - 7:31 [...] Attending: Xin Rust MD Author:Joaquin Rivera MS4 ID:Mackenzie Hartley is a 56 y.o. [...] hours (or 3 results) Recent Labs Basename 03/27/1252603/26/1243503/25/123 WBC 16.5* 13.7* 16.8* HB 9.4* 9.3* 9.0* HCT 30.1* 29.8* 28.4* PLT 771* 726* 656* NEUTROPERC -- -- -- BANDPCT -- -- -- LYMPHPERC -- -- -- MONOPERC -- -- -- BASOPERC -- -- -- EOSPERC -- -- -- Chemistries: Last 72 Hours (or 3 results): Recent Labs Basename 03/27/1252603/26/12 0436 03/25/12 0313 NA 143 142 141 [...] I S. - - IV cefepime day 5/ (PCN allergy, start 03/22), and IV Flagyl [...] J Gastroenterol. 2004 Jan;39(10):948-54. PubMed PMID: [id number]. Consulted Heme for further studies on platelet inhibitor and recommend repeating in 6 months. No new evidence of thrombosis on exam, but lung opacities concerning for alveolar hemorrhage while on warfarin. - - doppler pulses - - Coumadin at therapeutic range INR 2-3 #Anemia - iron deficiency likely from Crohn's despite absence of clear hematochezia or douglas na. Venofer on 03/16. Stable Hct 30-31. - - [...] an. ---- Joaquin Rivera, MS4 Pager # [phone] signed by Xin Rust MD at 03/27/2012 [...] noted any additions above. 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 Raphael Norman MD Internal Medicine, PGY-2 [id number] [facility] MD - 03/25/2012 8:58 PM [facility]3 Internal Medicine Attending Interval note Hospital day: [...] persists - not larger Resident spoke with associate professor of radiology who spoke with staff - they did [...] taking more PO if still low ask squilgeer to see Hypophosphatemia (03/14/2012) Assessment: rechecked and [...] noted any additions above. KIRIT MD YOCASTA [facility] DEPARTMENT: [id number]- [facility] Faculty PPV Place of Service:- Inpatient Date of Service: 03/25/2012 CSN: [id number] Suggested Modifier: GC Resident Involved: Yes Suggested CPT: 63430- Subsequent, Detailed/high complex, 35 min oaquin Rivera [...] Hours (or 3 results): Recent Labs Basename 03/25/123 03/24/12 0532 03/23/12 0736 NA 141 142 141 [...] J Gastroenterol. 2004 Jan;39(10):948- 54. PubMed PMID: [id number]. Consulted Heme for further studies on platelet [...] income that does not qualif y for Moblyng F/E/N Thrombosis ppx: Warfarin Glucose: not indicated Diet: regular Code: Do Not Resuscitate/Do Not Intubate This patient was seen with GM3, refer to Attending and Resident notes for assessment and pl an. ---- Joaquin Rivera, MS4 Pager # [phone] Ajay De La Rosa MD - 03/24/2012 [...] noted any additions above. KIRIT RUST MD [facility] DEPARTMENT: [id number]- [facility] Faculty PPV Place of Service:- Inpatient Date of Service: 03/24/2012 [facility]: [id number] Suggested Modifier: Resident Involved: Yes Suggested CPT: 08833- Subsequent, Detailed/high complex, 35 min Davonte De [...] Hartley, Attending: Xin Rust MD Author:Joaquin Herron MS Nicole4 ID:Mackenzie Hartley is a 56 y.o. female [...] J Gastroenterol. 2004 Jan;39(10):948- 54. PubMed PMID: [id number]. Consulted Heme for further studies on platelet [...] notes for assessment and pl an. ---- VIVIANA Quiroz Pager # [phone] Ajay De La Rosa MD - 03/23/2012 10:44 PM [facility]3 Internal Medicine Attending Interval note Hospital day: [...] noted any additions above. KIRITMarisa RUST MD [facility] DEPARTMENT: [id number]- [facility] Faculty PPV Place of Service:- Inpatient Date of Service: 03/23/2012 CSN: [id number] Suggested Modifier: AKHIL Resident Involved: Yes Suggested CPT: 49969- Subsequent, Detailed/high complex, 35 min Davonte De [...] PRN, Moses Asher MD, 15 mg at 2109 morphine injection 2-4 mg, 2-4 mg, [...] to be done today JERI DIAZ MD [address] [facility] [address] [place] [address] Xin De La Roas MD - 03/23/2012 7:47 AM PSTI personally [...] state: J Gastroenterol. 2004 Jan;39(10):948-54. PubMed PMID: [id number]. Consulted Heme for further studies on platelet [...] has income that does not qualify for Moblyng F/E/N Thrombosis ppx: Warfarin Glucose: not indicated Diet: regular Code: Do Not Resuscitate/Do Not Intubate This patient was seen with GM3, refer to Attending and Resident notes for assessment and pl an. ---- Joaquin Rivera, MS4 Pager # [phone] Ajay De La Rosa MD - 03/22/2012 10:50 PM [facility]3 Internal Medicine Attending Interval note Hospital day: [...] noted any additions above. KIRIT RUST MD [facility] DEPARTMENT: [id number]- [facility] Faculty PPV Place of Service:- Inpatient Date of Service: 03/22/2012 CSN: [id number] Suggested Modifier: Resident Involved: Yes Suggested CPT: 40862- Subsequent, Detailed/high complex, 35 min ox, Jeri [...] carotid duplex ordered today JERI DIAZ MD [facility] [address] [place] [address] Xin De La Rosa MD - 03/22/2012 [...] 10 Patient:Mackenzie Hartley, Attending: Xin Rust MD Author:VIVIANA Steele IID:Mackenzie Hartley is a 56 y.o. female [...] 03/20/12 202 1 NA -- 141 @ [facility] -- 142 139 K -- 3.8 Given [...] PTT in mixing 1:1 Neg cardiolipin, neg lboq-Z-pkweurfxckgu Legionella Agg Urine pending Cultures: BLOOD CULTURE [...] barber: J Gastroenterol. 2004 Jan;39(10):948-54. PubMed PMID: [id number]. - Consult Heme for further studies on [...] an. ---- Joaquin Rivera, 4 Pager # [phone] Ajay De La Rosa MD - 03/21/2012 [...] 142/76 | Pulse 106[sinus tach per television host[ | Temp 37.7 C (99.9 F) | [...] -- also coordination of care with pharmD. [facility] DEPARTMENT: [id number]- [facility] [facility] Place of Service:- Inpatient Date of Service: 03/21/2012 CSN: [id number] Suggested Modifier: GC Resident Involved: Yes Suggested CPT: 16897- Subsequent, Detailed/high complex, 35 min Jennifer Tolentino [facility] - 03/21/2012 12:38 PM PST . Vascular [...] y.o. Female with multiple complex medical problems; [facility] Vascular Surge ry consulted due to [...] as new baseline Ok to discharge per [facility] Vascular Surgeons once ambulating and medical issues are stable. Will continue to follow while in patient. [facility] Vascular Surgery Clinic, [address], phone number [phone] Please schedule followup appointment within 2-3 weeks of surgery for wound check. Dr. Sukumar Salgado, [facility] Vascular Surgery Attending. MERT OLIVA [facility] VASCULAR SURGERY [address] [place] [address] ham, Moses Asher MD - 03/21/2012 6:55 [...] w ill need to establish care with insulation packer so that further treatment options can be [...] assessment and plan. Moses Anthony MD Neurology Studio Operations Manager Pager [phone] oaquin Rivera - 02/2012 6:55 AM PST Medicine Progress Note Refer to Attending and Resident Notes for Assessment and Plan Hospital Day # 9 Patient:Mackenzie Hartley, Attending: Xin Rust MD Author:Joaquin Rivera MS4 ID:Mackenzie Hartley is a 56 y.o. [...] an. ---- Joaquin Rivera, MS4 Pager # [phone] Xin De La Rosa M D - 03/20/2012 11:09 PM [facility]3 Internal Medicine Attending Interval note Hospital day: [...] noted any additions above. KIRIT MD YOCASTA [facility] DEPARTMENT: [id number]- [facility] Place of Service:- Inpatient Date of Service: 03/20/2012 CSN: [id number] Suggested Modifier: Resident Involved: Yes Suggested CPT: 00180- Subsequent, Detailed/high complex, 35 min Jennifer Tolentino [...] y.o. Female with multiple complex medical problems; [facility] Vascular Surge ry consulted due to [...] chair as tolerated, RLE WBAT -Please obtain [facility] Arterial duplex ultrasound/DELORIS of both legs prior to discharge as n ew baselineObtain ABIs with waveforms To establish new blood-flow baseline Ok to discharge per [facility] Vascular Surgeons once ambulating and medical issues are stable. Will continue to follow while in patient. [facility] Vascular Surgery Clinic, [address], phone number [phone] Please schedule followup appointment within 2-3 weeks of surgery for wound check. Dr. Sukumar Salgado, [facility] Vascular Surgery Attending. MERT OLIVA [facility] VASCULAR SURGERY [address] [place] [id number] icprince, Raphael Saab MD - 03/20/2012 7:58 AM PSTI agree with the assessment and plan as it is stated in the note by Joaquin Rivera, MS4 Mrs. Hartley continued to have [...] plan. Raphael Norman MD Internal Medicine, PGY-2 14117 oaquin Rivera - 7:58 AM PST Medicine Progress Note Refer to Attending and Resident Notes for Assessment and Plan Hospital Day # 8 Patient:Mackenzie Hartley, Attending: Xin Rust MD Author:Joaquin Rivera MS4 ID:Mackenzie Hartley is a 56 y.o. [...] an. ---- Joaquin Rivera, MS4 Pager # [phone] Juma Pimentel MD - 03/19/2012 3:35 PM PST Inpatient Vascular Surgery Progress [...] warm and dry. Minimal edema. FARRUKH site wi no FARRUKH, c/d/i. Pulse/signal exam: RLE with [...] HS, Dariela Santoyo MD, 15 mg at 120 11/21 2155 promethazine (aka PHENERGAN) tablet 25 mg, 25 [...] record is Dr. Salgado. JUMA CARRINGTON MD [facility] [address]A [address] [place] [address] Chary Moore M D - 03/19/2012 9:14 [...] note from 03/14 for details. Therefore the dygx-xdfe-wruas plan givens s been to allow her [...] plan. Lovenox bridge to be covered by [facility]. 9) Occlusive thrombus 10) Hypoalbuminemia 11) Hypophosphatemia 12) TIA (transient ischemic attack) - with PFO 13) PFO (patent foramen ovale) - plan is for lifelong coumadin. No additional benefit from device closure per CLOSURE I trial. Chary Doherty MD Chief Resident, Internal Medicine Pager: [phone] [facility] DEPARTMENT: Hosp- [phone] Place of Service: Date of Service: 03/19/2012 CSN: [id number] Modifiers:GC Resident Involved: Yes Suggested CPT: 28524 Subsequent Visit Detailed/High complexity 35 min I [...] will need to establish c are with insulation packer so that further treatment options can be [...] assessment and plan. Moses Anthony MD Neurology Studio Operations Manager Pager [phone] Jose Antonio Baker MD - 03/18/2012 1:01 PM PST Inpatient Vascular Surgery Progress Note Hospital Day:6 Author; JOSE ANTONIO TONEY MD Attending Physician: Chary oDherty MD S: right leg painful. No other [...] Recorded LastCBG Intervention: Notified (Comment);Medication given (03/12/12 2306) Physical Exam Gen: Alert, NAD Extremities: moving [...] PRN, Dariela Santoyo MD, 650 mg at 12/08/12 0332 ciprofloxacin (aka CIPRO) tablet 500 mg, [...] 2,800 Units, 2,800 Units, Intravenous, NEEDED (BOLUS), DARLING Pantoja-C heparin bolus from continuous infusion (protocol) 5,600 Units, 5,600 Units, Intravenous, NEEDED (BOLUS), DARLING Pantoja-C, 5,600 Units at 03/13/12 0502 heparin in D5W IV infusion 25,000 units/250 mL (100 units/mL), 1-2,000 Units/hr, Intravenou s, CONTINUOUS, Gayatri Christensen PA-C, Last Rate: 18.5 mL/hr at 03/18/12 1119, 1,850 Units/ hr at 03/18/12 1119 insulin lispro (aka HUMALOG) injection 1-16 Units, 1-16 Units, Subcutaneous, Q6H, DARLING Pantoja-Kaiser, 2 Units at 03/14/12 1340 menthol-zinc oxide [...] outpt GI, plans to establish care in [place], perhaps Dr. Byrd. Transitioning to PO meds, [...] Doherty MD Chief Resident, Internal Medicine Pager: [phone] [facility] DEPARTMENT: Hosp- [phone] Place of Service: Date of Service: 03/18/2012 CSN: [id number] Modifiers: Resident Involved: Yes Suggested CPT: 33002 Subsequent Visit Exp Prob Foc/Mod Complexity 25 [...] Date 03/18/12 07 - 03/19/12 0659 Shift 6703-4422 4578-8855 2145-1600 24 Hour Total I N T A K E P.O. 620 620 I.V. 20 20 40 Shift Total 640 20 660 O U T P U T Urine 675 100 775 Other 400 400 Shift Total 240 980 8125 Weight (kg) 74.1 74.1 74.1 74.1 General: [...] refusing). Will need to establish care with insulation packer so that further treatment options can be [...] R pop yesterday. FARRUKH drain in place. Tole rated procedure well with good distal pulses. Transitioned to Lovenox today after her IVs in filtrated. Will d/c financial support for Lovenox. Encourage ambulation as tolerated. 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 Treating with anticoagulation only for now. No clear benefit to surgical closure over anticoagulation. Other notes as discussed in MS4 note. Moses Anthony MD Neurology Studio Operations Manager Pager [phone] signed by Moses Asher MD at 03/18/2012 9:50 PM [facility] - 03/18/2012 9:18 AM PST Medicine Progress [...] right lower extremity FARRUKH draining sanguinous fluid, R nonpalpable dorsalis ped [...] Not Intubate This patient was seen with 3, refer to Attending and Resident notes for assessment and pl an. ---- Joaquin Rivera, MS4 Pager # [phone] Chary Moore MD - 03/17/2012 8:39 PM [...] refusing). Will need to establish care with insulation packer so this can be discussed as outpt [...] Doherty MD Chief Resident, Internal Medicine Pager: [phone] [facility] DEPARTMENT: Hosp- [phone] Place of Service: IP - Date of Service: 03/17/2012 CSN: [id number] Modifiers:GC Resident Involved: Yes Suggested CPT: 88436 Subsequent Visit Detailed/High complexity 35 min I have spent 35 minutes with the patient of which more than 50% was spent counseling Mirela Rodriguez MD - 03/17/2012 10:51 AM PSTINPATIENT BRIEF OPERATIVE NOTE Procedure Date: 03/17/12 Author: MIRELA SALGADO MD Attending Physician: Bessie Assistants: Lenny Prior to the beginning of [...] at end of case. MIRELA SALGADO MD [facility] [address] [address]/kpv[address] [place] [address] ham, Gloria Lawson MD - 1 05/18/2011 [...] Intake/Output Summary (Last 24 hours) at 03/17/12 2104 Last data filed at 03/17/122031 Gross per [...] until she's therapeutic with her coumadin and [facility] has agreed to provide discounted INR checks [...] y Gloria Anthony MD Neurology PGY1 Pager: [phone] Joaquin Hui - 10/2011 7:19 AM PST Medicine Progress Note Refer to Attending and Resident Notes for Assessment and Plan Hospital Day # 5 Patient:Mackenzie Hartley, Attending: Chary Doherty MD Author:Joaquin Herron Nicole, MS4 ID:Mackenzie Hartley is a 56 y.o. [...] an. ---- Joaquin Rivera, MS4 Pager # [phone] Chary Moore MD - 03/16/2012 12:56 PM [...] therefore not henriquez to close her PFO especximena lly considering her current lack of insurance, but agree this is reasonable to consider down the road. Chary Doherty MD Chief Resident, Internal Medicine Pager: [phone] [facility] DEPARTMENT: Hosp- [phone] Place of Service: - Date of Service: 03/16/2012 CSN: [id number] Modifiers: Resident Involved: Yes Suggested CPT: 72632 Subsequent Visit Exp Prob Foc/Mod Complexity 25 min and 03672 Subseque nt Visit Detailed/High complexity 35 min [...] NPO p MN Sandoval Galvez MD, R-4 Gloria Tucker MD - 03/16/2012 7:43 AM PST INPATIENT [...] flagyl to try to minimize nausea -f/u 12/ blood cultures Crohn's Disease/flare - fistulizing disease [...] DNR/DNI Gloria Anthony MD Neurology PGY-1 Pager [phone] The patient was seen and discussed with the attending of record, Chary Doherty MD, who agrees with my assessment and plan. Chary Moore MD - 03/15/2012 9:30 PM PSTMEDICINE ATTENDING [...] Doherty MD Chief Resident, Internal Medicine Pager: [phone] [facility] DEPARTMENT: Hosp- [phone] Place of Service: - Date of Service: 03/15/2012 CSN: [id number] Modifiers:GC Resident Involved: Yes Suggested CPT: 62507 Subsequent Visit Detailed/High complexity 35 min Dariela [...] plan. Dariela Santoyo MD Internal Medicine PGY-3 [id number] Daryl Singleton MD - 08/2011 7:18 PM PSTHematology Attending Consult Note: I saw and examined Ms. Hartley with the Hematology Fellow, Dr. Anthony Camejo and Medical [facility] [place] the 5A Medicine unit. I participated in the gunter components of today's [facility] visit including review of the history, [...] re Daryl Arteaga MD, PhD Hematology Oncology [facility] DEPARTMENT: [id number]- HEM FACULTY [facility] Place of Service: - Inpatient Date of Service: 03/15/2012 Modifiers: GC - Resident Involved Suggested CPT: 03394 - Subsequent, Detailed/High complex 35 min rammer, Anthony Vega MD - 03/15/2012 7:18 PM PST Hematology [...] % Intake/Output Summary (Last 24 hours) at 03/15/121917 Last data filed at 03/15/12 1644 Gross [...] anticoagulation clinic f/u closely; our clinic at [facility] cannot provide any suppli es -anticoagulation [...] as above. MD Hematology/Oncology Fellow Pager # [phone] signed by Daryl Arteaga MD at 03/15/2012 [...] with any questions. Bigg Robles, R1 Pager: [phone] INTERVAL HISTORY: - NAEO - VSS, AF [...] 2.8* 1.1* PO4 2.1* -- 1.1* 1.7* Mirela Josue MD - 03/15/2012 2:12 PM PSTVascular Surgery [...] wishes to pro ceed. Mirela Samano M.D. [facility] Vascular Surgery [address] [place] [address], [address] [address] Email: [email or web address] Sandoval Ko MD - 03/15/2012 9:30 [...] off to day. Jacoby Tovar MD Surgery [id number] signed by Sandoval Tovar MD at 03/15/2012 [...] monitor Gloria Anthony MD Neurology PGY1 Pager [phone] Daryl Singleton MD - 07/2011 4:57 PM PSTHematology Attending Consult Note: I saw and examined Ms. Hartley with the Hematology Fellow, Dr. Anthony Camejo in the [address] [place] [address] unit. I participated in the gunter components [...] re Daryl Arteaga MD, PhD Hematology Oncology [facility] DEPARTMENT: [id number]- HEM FACULTY [facility] Place of Service: - Inpatient Date of Service: 03/14/2012 Modifiers: GC - Resident Involved Suggested CPT: 95126 - Subsequent, Detailed/High complex 35 min Anthony Maza MD - 03/14/2012 4:57 PM PST Oncology [...] Labs Basename 03/14/12 1150 03/14/12 0525 03/13/12 03403/12/128 WBC 22.7* 23.4* 42.5* -- HB 6.9* [...] Basename 03/14/12 1303 03/14/12 0939 03/14/12 0610 03/14/12 0525 03/13/1234103/12/12 200 6 03/12/128 NA -- -- -- 139 143 141 [...] as above. MD Hematology/Oncology Fellow Pager # [phone] signed by Daryl Arteaga MD at 03/14/2012 [...] really for treatment Recommendations communicated with [employer] internet sales consultant. We will continue to follow. This plan was discussed and formulated with gastroenterology at [facility], Dr. Casiano. Please call with any questions. Bigg Robles, R1 Pager: [phone] Attending Attestation: I personally interviewed the patient, performed the relevant elements of the physical exami [place] [facility], and formulated the assessment and plan with Dr. Robles. See Dr. Robles' note fo r further [...] She may follow-up wit h her local insulation packer or may follow up with me at [facility] if she wishes to consider di fferent evaluation or treatment. Gopal Casiano MD Gas Plant Repairernewspaper vendor Department of Gastroenterology INTERVAL HISTORY: - NAEO [...] IMAGING Reviewed outside imaging with radiologist at [facility] and CT abd and pelvis shows [...] Recent Labs Basename 03/14/12 0939 03/14/12 0610 03/14/1252403/13/1234103/12/12200503/12/12 191 8 NA -- -- 139 143 [...] Becca Moncada MD General Surgery, R2 Pager: [phone] [facility] Staff I saw and evaluated the patient. I agree with the findings and the plan of care as jannie hair in the resident s note. Left foot warm and well perfused. Patient pain-free. Will repe at CTA to see if there has been any thrombus progression. No urgent need for surgery on left leg at this point. Mirela Samano M.D. [facility] Vascular Surgery [address] [place] [address], [address] [address] Email: [email or web address] Irene Aguilera MD - 03/14/2012 3:52 [...] at OSH. 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 She also had leukocytosis to 45 with a left shift, anemia, and thrombocytosis (platelets to 759). Her abdominal exam was not acute and she remained hemodynamically stable. Transferre d to [facility] for possible thrombectomy, initiated heparin therapy, [...] were obscured by overlying bowel gas. The [id number] left external iliac arteries appear patent with [...] transient arterial occlusion. Reported CT findings at [facility] are also concerning for diffuse intra-abdominal arterial [...] CARLOS A SALCIDO MD R2, General Surgery [facility] 03/13/2012 1:20 PM Current Facility-Administered Medications Medication [...] mg 1 mg Intramuscular PRN Bibiana Kaiser Adams PA-C glucose chewable tablet 16 g 16 g Oral Q15MIN PRN Bibiana Kaiser Admas, PA-C heparin bolus from continuous infusion (protocol) [...] Data: No Data Recorded LastCBG Intervention: Notified (Comment);Medication given (03/12/122305) CBC with diff last 72 hours (or [...] Becca Moncada MD General Surgery, R2 Pager: [phone] Vascular Staff I saw and evaluated the [...] at a later time. Mirela Samano M.D. [facility] Vascular Surgery [address] [place] [address], [address] [address] Email: [email or web address] Richie Goodman MD - 06/2011 11:15 AM PSTI was present and rounded with the CLINICAL TRAINER today. I interviewed and examined the patient. I reviewed the history, as documented today. I agree with the CLINICAL TRAINER's assessmen t and plan. Pt is stable [...] 75 Morphine IV PRN zofran PRN Labs: [facility] reviewed Significant Results K 3.3 Mg [...] visceral and aortic thrombus transfer red from [facility] last night with concerns for ischemic bowel. [...] and celiac arteries who was transferred to [facility] for management o f vascular disease and possible bowel ischemia. No evidence of bowel ischemia, bowel thicken ing likely Crohn's flare. 1. Crohn's flare: GI consult. Consider transfer to medicine for crohn's management with [facility] following 2. Multivessel occlusions/thrombii: vascular surgery following. [...] Blood cultures pending; as is vascular imaging Froylan Macias MD Plastic Surgery, R3 Diagnoses: 555.9B Crohn disease ATTENDING ADDENDUM I saw and examined Mackenzie Hartley with the residents on 03/13 and agree with the assessment and plan as outlined in this note and participated in the planning of care. Ms. Hartley has been stable after ICU admission yesterday. She initially had concern for acute mesenteric occlusi on/ischemia. Her symptoms are improved. Her abdominal exam does not reveal peritonitis. [facility] ular surgery recommended a heparin drip given her subtherapeutic INR. Hematology will be con sulted for her leukocytosis and declining platelet count in the setting of heparin therapy. Gastroenterology is making recommendations regarding acute management of her Crohn's disease . She will no longer require ICU care and she will transfer to the general medicine service. Jf Wiseman MD FACS pharmacy intake coordinator Division of Trauma, Critical Care, and Acute Care Surgery [phone] documented in this e ncounter Plan of [...] | UA, DIPSTICK ONLY | Routin | 03/19/2012 | | [...] [facility] | [address] | [place] [address] | | | SERVICES, CORE | [address] [...] [facility] | [address] | [place] [address] | | | SERVICES, CORE | [address] | | | + + + + + INR (03/31/2012 3:58 AM PST) + +-------+ + + + | Component | Value | Ref Range | Performed | Pathologist | | | | | At | Signature | + +-------+ + + + | INR | 1.11 | 0.90 - 1.20 INR | [facility] [...] | + + + + + | [facility] | [address] | [place] [address] | | | SERVICES, CORE | [address] | | | + + + + + MAGNESIUM, PLASMA (03/31/2012 3:58 AM PST) + +-------+ + + + | Component | Value | Ref Range | Performed | Pathologist | | | | | At | Signature | + +-------+ + + + | MAGNESIUM,P | 1.9 | 1.8 - 2.5 mg/dL | [facility] [...] | + + + + + | [facility] | [address] | [place] [address] | | | SERVICES, CORE | [address] [...] [facility] | [address] | [place] [address] | | | SERVICES, CORE | [address] [...] | | + +---------+ + + | [facility] DEPARTMENT OF | | | | [...] | | + +---------+ + + | [facility] DEPARTMENT OF | | | | [...] | + + + + + | [facility] | [address] | [place] [address] | | | SERVICES, CORE | BERTR[address] [...] [facility] | [address] | [place] [address] | | | SERVICES, CORE | PARK [...] [facility] | [address] | [place] [address] | | | SERVICES, CORE | PARK [...] [facility] | [address] | [place] [address] | | | SERVICES, CORE | PARK [...] | + + + + + | [facility] | [address] | [place] [address] | | | SERVICES, CORE | B[address]TR[address] [...] | + + + + + | [facility] | [address] | [place] [address] | | | SERVICES, CORE | [address] [...] [facility] | [address] | [place] [address] | | | SERVICES, CORE | PARK [...] 44.6 (H) | 26.0 - 36.0 | [facility] | | | | | seconds | [...] | + + + + + | [facility] | [address] | [place] [address] | | | SERVICES, JANELL | [address] [...] | + + + + + | [facility] | [address] | [place] [address] | | | [place] | | | [...] + | [facility] | [address] | [place] [address] | | | [place] | | | | + + + [...] + | [facility] | [address] | [place] [address] | | | [place] | | | [...] [facility] | [address] | [place] [address] | | | SERVICES, CORE | PARK [...] | + + + + + | [facility] | [address] | [place] [address] | | | SERVICES, CORE | PARK [...] [facility] | [address] | [place] [address] | | | SERVICES, CORE | PARK [...] [facility] | [address] | [place] [address] | | | JANELL SHARP | [address]TRAM [...] | + + | Vitaliy, Faculty - 03/29/2012 4:26 PM PST | [...] by:Tamara | | | | | | Cornel Loco M.D./Surgical | | | | | | Pathology FellowHung Arias | | | | | | MTriston/Surgical | | | | | | Pathologist [...] | + + + + + | [facility] | [address] | [place] [address] | | | PATHOLOGY | [address] [...] [facility] | [address] | [place] [address] | | | SERVICES, CORE | PARK [...] [facility] | [address] | [place] [address] | | | JANELL SHARP | PARK [...] | | | | | signed / Meerasachi Hillman | | | | | | [...] + | [facility] | [address] | [place], [place] | | | [place] [facility] | [address] | [address] | | | TESTS | | | [...] | + + + + + | [facility] | [address] | [place] [address] | | | SERVICES, CORE | PARK [...] | + + + + + | [facility] | [address] | [place] [address] | | | SERVICES, CORE | [address] [...] [facility] | [address] | [place] [address] | | | SERVICES, JANELL | [address] [...] + | [facility] | [address] | [place], [place] | | | [facility] [place] | [facility] | [address] | | | TESTS | | | [...] [facility] | [address] | [place] [address] | | | SERVICES, CORE | P[address] [...] [facility] | [address] | [place] [address] | | | SERVICES, CORE | PARK [...] | + + + + + | [facility] | [address] | [place] [address] | | | SERVICES, CORE | [address] [...] | + + + + + | [facility] | [address] | [place] [address] | | | SERVICES, JANELL | [address] | | | + + + + + X-RAY PORTABLE CHEST 1 VIEW (03/28/2012 6:28 AM PST) + + + + + + | Component | Value | Ref Range | Performed | Pathologist | | | | | At | Signature | + + + + + + | X-RAY | STUDY: MI CHEST 1 VIEW | | | | [...] + + + + | PRODUCT | [id number] | | [facility] | | | UNIT [...] + + + + | BLOOD | [id number] | | [facility] | | | PRODUCT [...] DEPARTMENT OF | [address] | [place] [address] | | | PATHOLOGY | [address] [...] + + + + | PRODUCT | [id number] | | [facility] | | | UNIT [...] + + + + | BLOOD | [id number] | | [facility] | | | PRODUCT [...] | + + + + + | [facility] DEPART[facility] | [address] | [place] [address] | | | PATHOLOGY | [address] [...] | 60 - 99 mg/dL | [facility] - | | | GLUCOSE, | | [...] [facility] | [address] | [place], [place] | | | KAILEY MOORE | [facility] | [address] | | | TESTS | | | [...] | + + + + + | [facility] | [address] | [place] [address] | | | SERVICES, CORE | BERTRAM [...] view image for the detailed interpretation from [employer] results. | CARDIOLOGY | + + + + + + + + | Performing | Address | City/State/Zipcode | Phone Number | | Organization | | | | + + + + + | [facility] | [address] | [place], [place] | | | CARDIOLOGY | [address] | [address] | | + + + + + [...] [facility] | [address] | [place] [address] | | | SERVICES, CORE | [address] [...] + + + + | PRODUCT | [id number] | | [facility] | | | UNIT [...] + + + + | BLOOD | 49093 | | [facility] | | | PRODUCT [...] | + + + + + | [facility] DE[facility] | [address] | [place] [address] | | | PATHOLOGY | [address] [...] + + + + | PRODUCT | [id number] | | [facility] | | | UNIT [...] + + + + | BLOOD | 28760 | | [facility] | | | PRODUCT [...] + | [facility] | [address] | [place], [place] [address] | | | PATHOLOGY | [address] | | | + + + + + FIBRINOGEN (03/28/2012 1:46 AM PST) + +-------+ + + + | Component | Value | Ref Range | Performed | Pathologist | | | | | At | Signature | + +-------+ + + + | FIBRINOGEN | 340 | 200 - 450 mg/dL | [facility] [...] [facility] | [address] | [place] [address] | | | SERVICES, CORE | PARK [...] | + + + + + | [facility] | [address] | [place] [address] | | | SERVICES, CORE | BERTRAM [...] | + + + + + | [facility] | [address] | [place] [address] | | | SERVICES, CORE | BERTRAM [...] [facility] | [address] | [place] [address] | | | SERVICES, CORE | PARK [...] + + | [facility] | [address] | [place] [address] | | | SERVICES, | [address] [...] | + + + + + | [facility] | [address] | [place] [address] | | | SERVICES, | [address] [...] + + + + | PRODUCT | [id number] | | [facility] | | | UNIT [...] + + + + | BLOOD | [id number] | | [facility] | | | PRODUCT [...] | + + + + + | [facility] | [address] | [place] [address] | | | PATHOLOGY | [address] [...] + + + + | PRODUCT | [id number] | | [facility] | | | UNIT [...] + + + + | BLOOD | [id number] | | [facility] | | | PRODUCT [...] DEPARTMENT OF | [address] | [place] [address] | | | PATHOLOGY | [address] [...] [facility] | [address] | [place] [address] | | | SERVICES, CORE | PARK [...] | + + + + + | [facility] | [address] | [place] [address] | | | SERVICES, CORE | PARK [...] | + + + + + | [facility] | [address] | [place] [address] | | | SERVICES, CORE | PARK [...] | + + + + + | [facility] | [address] | [place] [address] | | | SERVICES, CORE | PARK [...] [facility] | [address] | [place] [address] | | | SERVICES, CORE | PARK [...] [facility] | [address] | [place] [address] | | | SERVICES, CORE | PARK [...] | + + + + + | [facility] | [address] | [place] [address] | | | SERVICES, CORE | PARK [...] + | [facility] | [address] | [place] [address] | | | SERVICES, CORE | PARK [...] | + + + + + | [facility] | [address] | [place] [address] | | | SERVICES, JANELL | BERTRAM [...] [facility] | [address] | [place] [address] | | | SERVICES, CORE | PARK [...] | + + + + + | [facility] | [address] | [place] [address] | | | SERVICES, CORE | [address] | | | + + + + + MAGNESIUM, PLASMA (03/25/2012 3:13 AM PST) + +---------+ + + + | Component | Value | Ref Range | Performed | Pathologist | | | | | At | Signature | + +---------+ + + + | MAGNESIUM,P | 1.7 (L) | 1.8 - 2.5 mg/dL | [facility] | | | LASMA | | | [...] [facility] | [address] | [place] [address] | | | SERVICES, CORE | PARK [...] [facility] | [address] | [place] [address] | | | SERVICES, CORE | PARK [...] [facility] | [address] | [place] [address] | | | SERVICES, CORE | PARK [...] | + + + + + | [facility] | [address] | [place] [address] | | | SERVICES, JANELL | BERTRAM [...] oral, | | | | | | [id number] hrs | | | | | | [...] | | + +---------+ + + | [facility] DEPARTMENT [facility] | | | | [...] + | [facility] | [address] | [place] [address] | | | SERVICES, CORE | PARK [...] | + + + + + | [facility] | [address] | [place] [address] | | | SERVICES, CORE | PARK [...] LABORATORY | | | | | | AORN, | | | | | | CORE | | + +---------+ + + + + + | Specimen | + + | Blood - Blood | + + + + + + + | Performing | Address | City/State/Zipcode | Phone Number | | Organization | | | | + + + + + | [facility] | [address] | [place] [address] | | | SERVICES, CORE | [address] [...] | + + + + + | [facility] | [address] | [place] [address] | | | SERVICES, CORE | BERTRAM [...] [facility] | [address] | [place] [address] | | | SERVICES, JANELL | BERTRAM [...] | | | | Final | | [place] | | | | CULTURE RESULT:< 10,000 [...] + | [facility] | [address] | [place], [place] [address] | | | [facility] | | | | + + [...] [facility] | [address] | [place] [address] | | | SERVICES, CORE | PARK [...] [facility] | [address] | [place] [address] | | | SERVICES, CORE | PARK [...] | | | LABORATORY | | | JANELL SHARP | + + + + + + + + | Performing | Address | City/State/Zipcode | Phone Number | | Organization | | | | + + + + + | [facility] | [address] | [place] [address] | | | JANELL SHARP | [address] | | | + + + + + CULTURE, BLOOD BACTI & YEAST [facility] (03/23/2012 11:22 PM PST) + + + [...] | + + + + + | [facility] | [address] | [place] [address] | | | SERVICES, CORE | BERTRAM [...] + + + | Please click | [facility] | | on view image for the detailed interpretation from [employer] results. | CARDIOLOGY | + + + + + + + + | Performing | Address | City/State/Zipcode | Phone Number | | Organization | | | | + + + + + | [facility] | [address] | [place], [place] | | | CARDIOLOGY | [address] | [address] | | + + + + + [...] | | | | | ,Author: AMALIA Ivy | | | | | | Fortino [...] | | | | signed / Amalia Ivy | | | | | | Jorge [...] | + + + + + | [facility] | [address] | [place] [address] | | | SERVICES, CORE | [address] | | | + + + + + MAGNESIUM, PLASMA (03/23/2012 7:36 AM PST) + +-------+ + + + | Component | Value | Ref Range | Performed | Pathologist | | | | | At | Signature | + +-------+ + + + | MAGNESIUM,P | 1.8 | 1.8 - 2.5 mg/dL | [facility] [...] [facility] | [address] | [place] [address] | | | JANELL SHARP | [address] [...] | + + + + + | [facility] | [address] | [place] [address] | | | JANELL SHARP | [address] [...] | + + + + + | [facility] | [address] | [place] [address] | | | SERVICES, CORE | BERTRAM [...] [facility] | | | | | | [facility],[address] [place] [address] | | | | | | [place] [address] | | | | | | [phone]. | | | | | | keith, [...] [facility] | [address] | [place], [place] | | | [facility] | | [address] | | + + + + + [...] | + + + + + | [facility] | [address] | [place] [address] | | | SERVICES, CORE | BERTRAM [...] | | | | | | Tiffanie M.D. I have | | | | [...] Subculture, No | | | | | 03/24/2012t 0012. | growth to date. | | | + + + + + + + + | Specimen | + + | Blood - Hand - left | + + + + + + + | Performing | Address | City/State/Zipcode | Phone Number | | Organization | | | | + + + + + | [facility] | [address] | [place] [address] | | | SERVICES, CORE | [address] | | | + + + + + CULTURE, BLOOD BACTI & YEAST [facility] (03/22/2012 7:08 PM PST) + + [...] Subculture, No | | | | | 03/24/2012t 0013. | growth to date. | | | + + + + + + + + | Specimen | + + | Blood - Antecubital | | - right | + + + + + + + | Performing | Address | City/State/Zipcode | Phone Number | | Organization | | | | + + + + + | [facility] | [address] | [place] [address] | | | SERVICES, CORE | [address] [...] | | | | | XIN GARZON (1503) | | | | | | on 03/22/2012 4:25:06 PM | | | | + + + + + + + + | Specimen | + + | | + + + + + | Narrative | Performed At | + + + | Please click | [facility] | | on view image for the detailed interpretation from Conference[employer] results. | CARDIOLOGY | + + + + + + + + | Performing | Address | City/State/Zipcode | Phone Number | | Organization | | | | + + + + + | [facility] | [address] | [place], [place] | | | CARDIOLOGY | [address] | [address] | | + + + + + [...] [facility] | [address] | [place], [place] | | | [facility] | [facility] | [address] | | | TESTS | | | [...] [facility] | [address] | [place], [place] | | | [facility] OF [facility] | [facility] | [address] | | | TESTS | | | [...] | + + + + + | [facility] | [address] | [place] [address] | | | SERVICES, CORE | PARK [...] | + + + + + | [facility] | [address] | [place] [address] | | | SERVICES, JANELL | [address]TRAM [...] | + + + + + | [facility] | [address] | [place] [address] | | | SERVICES, JANELL | BERTRAM [...] [facility] | [address] | [place] [address] | | | SERVICES, CORE | PARK [...] | + + + + + | [facility] | [address] | [place] [address] | | | SERVICES, CORE | BERTRAM [...] [facility] | [address] | [place], [place] | | | [facility] | [address] | [address] | | | TESTS | | | [...] | + + + + + | [facility] | [address] | [place] [address] | | | SERVICES, CORE | PARK [...] [facility] | [address] | [place], [place] | | | [facility] [place] | [address] | [address] | | | TESTS | | | [...] view image for the detailed interpretation from ConferenceEdge results. | CARDIOLOGY | + + + + + + + + | Performing | Address | City/State/Zipcode | Phone Number | | Organization | | | | + + + + + | [facility] | [address] | [place], [place] | | | CARDIOLOGY | [address] | [address] | | + + + + + [...] + + + | [facility] | [address] | [place], [place] | | | [facility] | [address] | [address] | | | TESTS | | | [...] | | | | signed / Amalia Ivy | | | | | | Jorge [...] [facility] | [address] | [place] [address] | | | JANELL SHARP | [address]TR[address] [...] [facility] | [address] | [place] [address] | | | SERVICES, CORE | BERTRAM [...] | + + + + + | [facility] | [address] | [place] [address] | | | ARON, JANELL | [address] [...] | + + + + + | [facility] | [address] | [place] [address] | | | SERVICES, JANELL | BERTRAM [...] | + + + + + | [facility] | [address] | [place] [address] | | | SERVICES, CORE | [address] | | | + + + + + 12 LEAD ECG (03/21/2012 1:28 AM PST) + + + + + + | Component | Value | Ref Range | Performed | Pathologist | | | | | At | Signature | + + + + + + | VENTRICULAR | 107 | BPM | [facility] [...] GARCIA | | | | | | (3534) on 03/22/2012 | | | | | | 12:47:28 PM | | | | + + + + + + + + | Specimen | + + | | + + + + + | Narrative | Performed At | + + + | Please click | [facility] | | on view image for the detailed interpretation from ConferenceEdge results. | CARDIOLOGY | + + + + + + + + | Performing | Address | City/State/Zipcode | Phone Number | | Organization | | | | + + + + + | [facility] | [address] | [place], [place] | | | CARDIOLOGY | [address] | [address] | | + + + + + [...] | | + +---------+ + + | [facility] | | | | [...] (LL) | 1.8 - 2.5 mg/dL | [facility] [...] [facility] | [address] | [place] [address] | | | SERVICES, CORE | BERTRAM [...] | + + + + + | [facility] | [address] | [place] [address] | | | SERVICES, CORE | BERTRAM [...] [facility] | [address] | [place], [place] | | | KAILEY MOORE | [address] | [address] | | | TESTS | | | [...] view image for the detailed interpretation from ConferenceEdge results. | CARDIOLOGY | + + + + + + + + | Performing | Address | City/State/Zipcode | Phone Number | | Organization | | | | + + + + + | [facility] | [address] | [place], [place] | | | CARDIOLOGY | [address] | [address] | | + + + + + [...] [facility] | [address] | [place], [place] | | | [facility] | [address] | [address] | | | TESTS | | | [...] (H) | 60 - 99 mg/dL | [facility] - | | | GLUCOSE, | [...] [facility] | [address] | [place], [place] | | | [facility] CARE | [address] | [address] | | | TESTS | | | | + + + + + X-RAY PORTABLE CHEST 1 VIEW (03/20/2012 10:13 AM PST) + + + + + + | Component | Value | Ref Range | Performed | Pathologist | | | | | At | Signature | + + + + + + | X-RAY | STUDY: MI CHEST 1 VIEW | | | | [...] | | | | | signed / Davi Cruz | | | | | | 03/20/2012 11:03 AM | | | | + + + + + + + + | Specimen | + + | | + + + +---------+ + + | Performing | Address | City/State/Zipcode | Phone Number | | Organization | | | | + +---------+ + + | [facility] | | | | [...] [facility] | [address] | [place] [address] | | | ARON, CORE | [address] | | | [...] | + + + + + | [facility] | [address] | [place] [address] | | | SERVICES, CORE | [address] [...] [facility] | [address] | [place] [address] | | | SERVICES, CORE | [address] [...] | + + + + + | [facility] | [address] | [place] [address] | | | SERVICES, CORE | [address] | | | + + + + + CAPILLARY BLOOD GLUCOSE (NO CHG)ELLIOT (03/20/2012 6:08 AM PST) + +---------+ + [...] [facility] | [address] | [place], [place] | | | [facility] | [facility] | [address] | | | TESTS | | | [...] + | [facility] | [address] | [place], [place] | | | [facility] | [address] | [address] | | | TESTS | | | | + + + + + CULTURE, BLOOD BACTI & YEAST [facility] (03/19/2012 6:50 PM PST) + + + [...] No | | | | | 03/21/2012t 0015. | growth to date. | | | + + + + + + + + | Specimen | + + | Blood - Hand - left | + + + + + + + | Performing | Address | City/State/Zipcode | Phone Number | | Organization | | | | + + + + + | [facility] | [address] | [place] [address] | | | SERVICES, CORE | [address] | | | + + + + + CULTURE, BLOOD BACTI & YEAST [facility] (03/19/2012 6:48 PM PST) + + + [...] | + + + + + | [facility] | [address] | [place] [address] | | | SERVICES, CORE | BERTRAM [...] [facility] | [address] | [place], [place] | | | [facility] CARE | [address] | [address] | | | TESTS | | | [...] + + + | Please click | [facility] | | on view image for the detailed interpretation from ConferenceEdge results. | CARDIOLOGY | + + + + + + + + | Performing | Address | City/State/Zipcode | Phone Number | | Organization | | | | + + + + + | [facility] | [address] | [place], [place] | | | CARDIOLOGY | [address] | [address] | | + + + + + [...] [facility] | [address] | [place], [place] | | | [facility] | [address] | [address] | | | TESTS | | | [...] Kaya | | | | | | Inez Shaikh have | | | | | | [...] [facility] | [address] | [place], [place] | | | [facility] CARE | [address] | [address] | | | TESTS | | | [...] | + + + + + | [facility] | [address] | [place] [address] | | | JANELL SHARP | [address] [...] | + + + + + | [facility] | [address] | [place] [address] | | | JANELL SHARP | [address] [...] | + + + + + | [facility] | [address] | [place] [address] | | | SERVICES, CORE | [address] [...] test result. | LABORATORY | | | SERVICESJANELL | + + + + + + + + | Performing | Address | City/State/Zipcode | Phone Number | | Organization | | | | + + + + + | [facility] | [address] | [place] [address] | | | SERVICES, JANELL | [address] [...] | | | | Final | | [place] | | | | CULTURE RESULT:No growth [...] + | [facility] | [address] | [place] [address] | | | [place] | | | [...] [facility] | [address] | [place] [address] | | | SERVICES, CORE | [address] [...] + + + + | NON-SQUAMOU | Few (A) | None /hpf | [...] | + + + + + | [facility] | [address] | [place] [address] | | | SERVICES, CORE | [address] [...] | + + + + + | [facility] | [address] | [place] [address] | | | SERVICES, CORE | PARK [...] | + + + + + | [facility] | [address] | [place] [address] | | | SERVICES, CORE | [address] | | | + + + + + CULTURE, BLOOD BACTI & YEAST [facility] (03/19/2012 1:10 AM PST) + + + + + + | Component | Value | Ref Range | Performed | Pathologist | | | | | At | Signature | + + + + + + | BLOOD | Final Report:No Bacteria | Final Report:No | [facility] | | | CULTURE | or Yeast [...] | + + + + + | [facility] | [address] | [place] [address] | | | SERVICES, CORE | BERTRAM [...] [facility] | [address] | [place], [place] | | | [facility]ARE | [address] | [address] | | | TESTS | | | [...] | + + + + + | [facility] | [address] | [place] [address] | | | JANELL SHARP | [address] [...] (H) | 60 - 99 mg/dL | [facility] - | | | GLUCOSE, | [...] [facility] | [address] | [place], [place] | | | [facility] CARE | [address] | [address] | | | TESTS | | | [...] | + + + + + | [facility] | [address] | [place] [address] | | | SERVICES, CORE | [address] [...] [facility] | [address] | [place] [address] | | | SERVICES, CORE | [address] [...] + + | [facility] | [address] [facility] [address] | [place] | | | [facility] | [facility] | [address] | | | TESTS | | | | + + + + + OPERATION RECORD (03/18/2012 11:22 AM PST) + + | Transcriptions | + + | Mirela Salgado MD - 03/18/2012 8:38 AM PST Date: 03/17/2012ttending | | Surgeon: Mirela Salgado M.D.[employer] Associate(s): Sandoval | | Bennett Galvez M.D.Preoperative Diagnosis(es):Embolus, [...] | | tolerated the procedure well.MIRELA SALGADO, [facility] / [id number] / | | [id number] / [id number] / T: 03/17/2012 | |was no pulse. [...] | | | |MIRELA SALGADO MD | |process server | | | |GLM / HS | |[id number] / [id number] / [id number] / | | | | | + [...] | + + + + + | [facility] | [address] | [place] [address] | | | SERVICES, CORE | B[address]TR[address] [...] [facility] | [address] | [place] [address] | | | SERVICES, CORE | [address] [...] [facility] | [address] | [place] [address] | | | SERVICES, CORE | [address] [...] [facility] | [address] | [place] [address] | | | SERVICES, CORE | [address] [...] | + + + + + | [facility] | [address] | [place] [address] | | | SERVICES, CORE | [address] [...] | + + + + + | [facility] | [address] | [place] [address] | | | JANELL SHARP | [address] [...] | + + + + + | [facility] | [address] | [place] [address] | | | JANELL SHARP | [address] [...] (H) | 60 - 99 mg/dL | [facility] - | | | GLUCOSE, | [...] [facility] | [address] | [place], [place] | | | [facility] CARE | [address] | [address] | | | TESTS | | | [...] | | | GLUCOSE, | | | MARGOPIAM | | | POC | | | [facility] | | | | | | OF CARE | | | | | | TESTS | | + +---------+ + + + + + | Specimen | + + | | + + + + + + + | Performing | Address | City/State/[facility] Cent[facility]ode | Phone Number | | Organization | | | | + + + + + | [facility] | [address] | [place], [place] | | | [facility] | [facility] | [address] | | | TESTS | | | [...] [facility] | [address] | [place], [place] | | | [facility]ARE | [facility] | [address] | | | TESTS | | | [...] [facility] | [address] | [place] [address] | | | SERVICES, CORE | [address] [...] | + + + + + | [facility] | [address] | [place] [address] | | | SERVICES, CORE | [address] [...] [facility] | [address] | [place] [address] | | | SERVICES, CORE | [address] [...] | + + + + + | [facility] | [address] | [place] [address] | | | SERVICES, CORE | [address] | | | + + + + + CAPILLARY BLOOD GLUCOSE (NO CHG) POC (03/17/2012 1:01 AM PST) + +---------+ [...] [facility] | [address] | [place], [place] | | | [facility]ARE | [address] | [address] | | | TESTS | | | [...] [facility] | [address] | [place] [address] | | | SERVICES, | [address] [...] | + + + + + | [facility] | [address] | [place] [address] | | | SERVICES, | [address] [...] | + + + + + | [facility] | [address] | [place] [address] | | | ARON, [facility] | [address] | | | + [...] [facility] | [address] | [place] | | | [facility] | [address] | [address] | | | TESTS | | | [...] | | | | | | Sonia Montanez | | | | + + + [...] | | | | | | Sonia Montanez | | | | + + + [...] [facility] | [address] | [place], [place] | | | [facility] | [address] | [address] | | | TESTS | | | [...] + | [facility] | [address] | [place], [place] | | | [facility]ARE | [address] | [address] | | | TESTS | | | [...] | + + + + + | [facility] | [address] | [place] [address] | | | SERVICES, CORE | [address] [...] (H) | 60 - 99 mg/dL | [facility] - | | | GLUCOSE, | [...] [facility] | [address] | [place], [place] | | | [facility] | [facility] | [address] | | | TESTS | | | [...] + + | Performing | Address | City/State/[facility] Cent[facility]ode | Phone Number | | Organization | | | | + + + + + | [facility] | [address] | [place] [address] | | | [place] [facility] | [address] | | | + [...] [facility] | [address] | [place] [address] | | | SERVICES, CORE | [address] [...] | + + + + + | [facility] | [address] | [place] [address] | | | JANELL SHRAP | [address] | | | + [...] | + + + + + | [facility] | [address] | [place] [address] | | | SERVICES, CORE | [address] [...] (H) | 60 - 99 mg/dL | [facility] - | | | GLUCOSE, | [...] SANDERS | [address] | [place], [place] | | | [facility] | [address] | [address] | | | TESTS | | | [...] MARQUAM | [address] | [place], [place] | | | [facility] | [address] | [address] | | | TESTS | | | [...] | | + +---------+ + + | [facility] DEPARTMENT OF | | | | [...] Kirstie | | | | | | [place] | | | | + + + [...] MARQUAM | [address] | [place], [place] | | | [facility] | [address] | [address] | | | TESTS | | | [...] MARILYN | [address] | [place], [place] | | | [facility] | [address] | [address] | | | TESTS | | | [...] [facility] | [address] | [place] [address] | | | SERVICES, SPECIAL | [address]ARK [...] + + | [facility] | [address] [facility] | [place] [address] | | | SERVICES, SPECIAL | [address] | | | | IMM + [...] [facility] | [address] | [place] [address] | | | SERVICES, SPECIAL | [address] [...] [facility] | [address] | [place] [address] | | | SERVICES, SPECIAL | [address] [...] [facility] | [address] | [place] [address] | | | SERVICES, CORE | PARK [...] | + + + + + | [facility] | [address] [facility] | [place] [address] | | | SERVICES, CORE | [address] [...] [facility] | [address] | [place] [address] | | | SERVICES, CORE | PARK [...] | + + + + + | [facility] | [address] | [place] [address] | | | SERVICES, JANELL | [address] | | | + + + + + TRANSTHORACIC ECHOCARDIOGRAM, ADULT (03/15/2012 12:00 AM PST) + + + | Narrative | Performed At | + + + | | | | | | + + + + + | Procedure Note | + + | Other, Faculty - 03/15/2012 6:06 PM PST | [...] MARILYN | [address] | [place], [place] | | | [facility] | [address] | [address] | | | TESTS | | | [...] | + + + + + | [facility] | [address] | [place] [address] | | | SERVICES, CORE | [address] [...] (H) | 60 - 99 mg/dL | [facility] - | | | GLUCOSE, | [...] SANDERS | [address] | [place], [place] | | | [facility] | [facility] | [address] | | | TESTS | | | [...] MARQUAM | [address] | [place], [place] | | | [facility] | [address] | [address] | | | TESTS | | | [...] Davina | | | | | | [place] | | | | + + + [...] MARQUAM | [address] | [place], [place] | | | [facility] | [address] | [address] | | | TESTS | | | [...] + + + + | PRODUCT | [id number] | | [facility] | | | UNIT [...] + + + + | BLOOD | [id number] | | [facility] | | | PRODUCT [...] | + + + + + | [facility] | [address] | [place] [address] | | | PATHOLOGY | [address] [...] + + + + | PRODUCT | [id number] | | [facility] | | | UNIT [...] + + + + | BLOOD | [id number] | | [facility] | | | PRODUCT [...] DEPARTMENT OF | [address] | [place] [address] | | | PATHOLOGY | [address] [...] [facility] | [address] | [place] [address] | | | SERVICES, CORE | PARK [...] | [facility] | [address] | [place], [place] | | | OSCAR POINT OF CARE | [address] | [address] | | | TESTS | | | [...] + + + | [facility] | [address] | [place], [place] | | | PEPE MOORE OF SHLOMO | [address] | [address] | | | TESTS | | | [...] [facility] | [address] | [place] [address] | | | SERVICES, CORE | PARK [...] [facility] | [address] | [place] [address] | | | SERVICES, CORE | PARK [...] | + + + + + | [facility] | [address] | [place] [address] | | | SERVICES, CORE | BERTRAM [...] if | | | | | | [id number] >[id number]: | | | | | | [...] + + | Performing | Address | City/State/[facility] Cent[facility]ode | Phone Number | | Organization | | | | + + + + + | [facility] - | [address] | [place] [address] | | | [place] | | | [...] [facility] | [address] | [place] [address] | | | SERVICES, CORE | PARK [...] [facility] | [address] | [place] [address] | | | SERVICES, CORE | PARK [...] | + + + + + | [facility] | [address] | [place] [address] | | | SERVICES, CORE | PARK [...] + | [facility] - | [address] | [place] [address] | | | [place] | | | | + + + [...] - [facility] | [address] | [place], [place] | | | OSCAR POINT OF CARE | [facility] | [address] | | | TESTS | | | [...] [facility] | [address] | [place] [address] | | | SERVICES, CORE | PARK [...] [facility] | [address] | [place] [address] | | | ARON, JANELL | BERTRAM [...] 98 | 60 - 99 mg/dL | [facility] - | | | GLUCOSE, | [...] [facility] | [address] | [place], [place] | | | PEPE MOORE OF [facility] | [address] | [address] | | | TESTS | | | [...] | + + + + + | [facility] | [address] | [place] [address] | | | SERVICES, CORE | PARK [...] gas. | | | | | | Bglhvt-ap-yzhqly left | | | | | | [...] Davina | | | | | | Aguilar | | | | + + + + + + + + | Specimen | + + | | + + + +---------+ + + | Performing | Address | City/State/Zipcode | Phone Number | | Organization | | | | + +---------+ + + | [facility] DEPARTMENT OF | | | | [...] [facility] | [address] | [place], [place] | | | PEPE MOORE OF CARE | [address] | [address] | | | TESTS | | | [...] % | [facility] | | | | [facility],[address] | | REG UNIV | | | | Jarett Card, [facility],[place] | | PTH - INTFC | | | | [phone] | | | | | | [phone].[employer]. | | | | | | Kaitlin [...] [facility] | [address] | [place], [place] | | | UNIV PTH - INTFC | | [address] | | + + + + + [...] | + + + + + | [facility] | [address] | [place] [address] | | | SERVICES, JANELL | BERTRAM [...] [facility] | [address] | [place] [address] | | | JANELL SHARP | BERTRAM [...] [facility] | [address] | [place], [place] | | | OSCAR WATSON OF [facility] | [address] | [address] | | | TESTS | | | [...] [facility] | [address] | [place] [address] | | | SERVICES, CORE | PARK [...] | + + + + + | [facility] | [address] | [place] [address] | | | SERVICES, CORE | BERTRAM [...] + + | Performing | Address | City/State/[facility] Centercode | Phone Number | | Organization | | | | + + + + + | [facility] | [address] | [place], [place] | | | KAILEY MOORE | [facility] | [address] | | | TESTS | | | [...] | + + + + + | [facility] | [address] | [place] [address] | | | JANELL SHARP | BERTRAM [...] [facility] | [address] | [place] [address] | | | SERVICES, JANELL | PARK [...] | + + + + + | [facility] | [address] | [place] [address] | | | JANELL SHARP | BERTRAM [...] [facility] | [address] | [place] [address] | | | SERVICES, JANELL | [address] | | | + + + + + MAGNESIUM, PLASMA (03/13/2012 3:42 AM PST) + +---------+ + + + | Component | Value | Ref Range | Performed | Pathologist | | | | | At | Signature | + +---------+ + + + | MAGNESIUM,P | 2.8 (H) | 1.8 - 2.5 mg/dL | [facility] | | | [facility] | | | LABORATORY | | | [...] [facility] | [address] | [place] [address] | | | SERVICES, CORE | PARK [...] [facility] | [address] | [place] [address] | | | SERVICES, CORE | PARK [...] | | | | Final | | [place] | | | | CULTURE RESULT:No growth [...] | + + + + + | [facility] - | [address] | [place] [address] | | | [place] | | | | + + + [...] | | | Final CULTURE | | [place] | | | | RESULT:Salmonella, | | [...] days. | AIR[facility] - | | | [place] | + + + + + + + + | Performing | Address | City/State/Zipcode | Phone Number | | Organization | | | | + + + + + | [facility] - | [address] | [place] [address] | | | [place] | | | [...] | + + + + + | [facility] | [address] | [place] [address] | | | SERVICES, CORE | BERTRAM [...] [facility] | [address] | [place], [place] | | | PEPE MOORE OF CARE | [address] | [address] | | | TESTS | | | [...] view image for the detailed interpretation from [employer] results. | CARDIOLOGY | + + + + + + + + | Performing | Address | City/State/Zipcode | Phone Number | | Organization | | | | + + + + + | [facility] | [address] | [place], [place] | | | CARDIOLOGY | [address] | [address] | | + + + + + [...] | | + +---------+ + + | [facility] DEPARTMENT OF | | | | | RADIOLOGY | | | | + +---------+ + + CULTURE, BLOOD BACTI & YEAST [facility] (03/12/2012 9:57 PM PST) + + + [...] | + + + + + | [facility] | [address] | [place] [address] | | | SERVICES, CORE | PARK [...] + + | [facility] | [address] | [place] [address] | | | SERVICES, CORE | [address] | | | + + + + + COAGULOPATHY PANEL (INR,APTT,FIBRINOGEN) (03/12/2012 8:06 PM PST) + +---------+ + + + | Component | Value | Ref Range | Performed | Pathologist | | | | | At | Signature | + +---------+ + + + | INR | 1.17 | 0.90 - 1.20 INR | [facility] [...] | + + + + + | [facility] | [address] | [place] [address] | | | SERVICES, CORE | [address]TRAM [...] | + + + + + | [facility] | [address] | [place] [address] | | | SERVICES, CORE | BERTRAM [...] (H) | 60 - 99 mg/dL | [facility] - | | | GLUCOSE, | [...] SANDERS | [address] | [place], [place] | | | PEPE MOORE OF [facility] | [address] | [address] | | | TESTS | | | [...] [facility] | [address] | [place] [address] | | | SERVICES, CORE | PARK [...] + | [facility] | [address] | [place] [address] | | | SERVICES, CORE | PARK [...] | + + + + + | [facility] | [address] | [place] [address] | | | SERVICES, | [address] [...] [facility] | [address] | [place] [address] | | | SERVICES, | [address] [...] | 30.3 | 26.0 - 36.0 | [facility] | | | | | sec. | [...] [facility] | [address] | [place] [address] | | | JANELL SHARP | [address] [...] [facility] | [address] | [place] [address] | | | SERVICES, CORE | PARK [...] | + + + + + | [facility] | [address] | [place] [address] | | | SERVICES, CORE | [address] | | | + + + + + ORDERS VITALIY (03/12/2012 12:00 AM PST) + + + | Narrative | Performed At | + + + | | | | | | + + + + + | Procedure Note | + + | Emeka Elias - 05/16/2012 1:18 PM PST | + + ORDERS OTHER (03/12/2012 12:00 AM PST) + + + | Narrative | Performed At | + + + | | | | | | + + + + + | Procedure Note | + + | Other, Faculty - 03/28/2012 2:29 PM PST | [...] (aka MAXIPIME) IV | New Bag | 03/22/20 | 2 g | mL/hr | | [...] | | | | last modification) on Tue | | | | | | [...] ROCEPHIN) IV 1 | New Bag | 12/02/20 | 1 g | mL/hr | | [...] PST | | | | | on Tue03/15/12 at 2100, Last dose | | | | | | | on Tue12 at 2100 | | | | | [...] | | | | First dose on [facility] 03/23/12 at | | | | [...] | | | | | 03/28/12 at 1208 | | | | | [...] | | | dose, First dose on [facility] 03/30/12 | | | | | | [...] | mL/hr | | | (PF) (aka MIRIAMULupeCORTSHAHAB) injection | | 12 8:36 | | | | | 100 mg 100 mg, intravenous, | | PM PST | | | | | EVERY 8 HOURS, First dose on Sun | | | | | | | 03/12/12 at 2015, Until | | | | | | [...] | | | | First dose on 03/13/12 at | | | | [...] PST | | | | | dose, 03/15/12 at 1415 | | | | | | + +---------+ +--------+--------+---+ +---+---+ | | | +---+---+ + +---------+ +--------+--------+---+ | iopamidol (aka ISOVUE-370) | New Bag | 12/14/20 | 100 mL | mL/hr | | | injection 100 mL 100 mL, | | 12 9:04 | | | | | intravenous, PROCEDURE ONCE, 1 | | PM PST | | | | | dose, 03/24/12 at 1630 | | | | [...] | | | Hours, ONCE, 1 dose, [facility] 03/15/12 | | | | | | [...] | | | Hours, ONCE, 1 dose, [facility] 03/16/12 | | | | | [...] | | | | | 1 dose, Beth 03/21/12 at 1515 | | PM PST [...] | | | | NEEDED, Starting e 03/21/12 at | | | | | | | 1056, Until e 03/28/12 at 0534, | | | | | [...] | | | | | 1115, Until [facility] 03/30/12 at 1055, | | | [...] | | | | | 2118, Until 03/21/12 at | | | | | [...] +---+---+ + +-------+ +--------+---+---+ | metroNIDAZOLE (aka DEDRA) | Given | 03/16/20 | 500 mg [...] +---+---+ + +-------+ +--------+---+---+ | metroNIDAZOLE (aka DEDRA) | Given | 03/31/20 | 500 mg [...] | | | | | NEEDED, Starting 03/17/12 at | | AM PST | | [...] | | | | | 0840, Until G[facility] 03/30/12 at 1057, | | [...] | | | | | 1839, Until Tue03/15/12 at 1019, | | | | | [...] | | | | | 0335, Until Tu03/14/12 at 1843, | | | | | [...] | | | | | dose on Tue03/13/12 at 1600, | | | | | [...] | | | oral, ONCE, 1 dose, 03/25/12 | | AM PST | | | | | at 1015 | | | | | | + +-------+ +--------+---+---+ +---+---+ | | | +---+---+ + +-------+ +--------+---+---+ | potassium chloride (aka | Given | 03/30/20 | 20 mEq | | | | KLOR-CON) packet 20 mEq 20 mEq, | | 12 12:07 | | | | | oral, ONCE, 1 dose, [facility] 03/30/12 | | PM PST | [...] | | | oral, ONCE, 1 dose, [facility] 03/17/12 | | PM PST | [...] | | | oral, ONCE, 1 dose, [place] 03/19/12 | | PM PST | | | | | at 1430 | | | | | | + +-------+ +--------+---+---+ +---+---+ | | | +---+---+ + +-------+ +--------+---+---+ | potassium chloride (aka | Given | 03/26/20 | 40 mEq | | | | CAROL-KENISHA) packet 40 mEq 40 mEq, | | 12 12:06 | | | | | oral, ONCE, 1 dose, [place] 03/26/12 | | PM PST | | | | | at 1000 | | | | | | + +-------+ +--------+---+---+ +---+---+ | | | +---+---+ + +---------+ +--------+--------+---+ | potassium chloride IV 40 mEq | New Bag | 03/12/20 | 40 mEq | mL/hr | | | 40 mEq, intravenous, ONCE, 1 | | 12 8:32 | | | | | dose, [place] 03/12/12 at 2100 | | PM PST | | | | + +---------+ +--------+--------+---+ +---+---+ | | | +---+---+ + +---------+ +--------+--------+---+ | potassium chloride IV 40 mEq | New Bag | 03/17/20 | 40 mEq | mL/hr | | | 40 mEq, intravenous, ONCE, 1 | | 12 7:07 | | | | | dose, [facility] 03/17/12 at 1630 | | PM PST [...] | 40 mEq, intravenous, ONCE, | | 12 1:32 | | | | | dose, 03/22/12 at 0045 | | AM PST | | | | + +---------+ +--------+--------+---+ +---+---+ | | | +---+---+ + +---------+ +--------+--------+---+ | potassium chloride IV 40 mEq | New Bag | 03/22/20 | 40 mEq | mL/hr | | | 40 mEq, intravenous, ONCE, | | 12 8:46 | | | | | dose, 03/22/12 at 1930 | | PM PST | [...] 11:41 | | | | | dose, Radha 03/26/12 at 1100 | | AM PST [...] | | | | | modification) on 03/24/12 at | | | | | | [...] | predniSONE (aka DELTASONE) | Given | 03/13/20 | 15 mg | | | | [...] +---+---+ + +-------+ +-------+---+---+ | predniSONE (aka DELTASONGary) | Given | 03/15/20 | 20 mg [...] | | | | | NEEDED, Starting 12/9/12 at | | | | | | [...] | | | | | 1552, Until Tue03/21/12 at 1435, | | | | | [...] | | | | NEEDED, Starting e 03/14/12 at | | | | | [...] | | | | | NEEDED, Starting [facility] 03/16/12 at | | | | | | | 0815, Until [place] 03/19/12 at 0713, | | | | [...] | +---+---+ + +---------+ +--------+--------+---+ | propofol (jenifer ENCISO) | New Bag | 03/29/20 | 240 mg | mL/hr | | | injection 240 mg 240 mg, | | 12 12:24 | | | | | intravenous, ONCE, 1 dose, Wed | | PM PST | | | | | 03/29/12 at 1400 | | | | | | + +---------+ +--------+--------+---+ + +---+ | | | + +---+ | propofol (jenifer GILRIMARLON) | | | injection 1 dose, Starting [...] dose on [place] 03/30/12 at | | PM PST | [...] 12 10:58 | | | | | [facility] 03/30/12 at 2300 | | PM PST [...] PM PST | | | | | 12/19/12 at 1700 | | | | | [...] | | | | | dose on 03/12/12 at 2200, | | | | | [...] | | | | | modification) on 03/22/12 at | | | | | | [...] | | | | | modification) on 03/20/12 at | | | | | [...] | | | | | modification) on [facility] 03/23/12 at | | | | [...]
--- OUTSIDE RECORDS SUMMARY | ~2019-11-05 | XMS | Encounter Summary ---
Demographics + + + | Address | [address] | | | [place] [address] | + + + | Home Phone | | + + + | Preferred Language | Unknown | + + + | Marital Status | | + + + | Spiritism Affiliation | NRP | + + + [...] [place], [place] | | | | | [address] | | + + + + + | Cami Sawyer | ECON | Unknown | | + + + + + Care Team Providers + +------+ + | Care Press Operator Heavy Duty Name | Role | Phone | + [...] | Crohn's | Neel Vega MD | [address] | | | | | disease of | [facility] | [address] | | | | | both small | [facility] | [facility]en [facility] | | | | | and large | CARE CLINIC | [place], [place] | | | | | intestine | [address] | [address] | | | | | without | 2ND | Phone: | | | | | complication | [place], | [phone] | | | | | s | [place] [address] | Fax: | | | | | | Phone: | [phone] | | | | | | [phone] | | | | | | | Fax: | | | | | | | [phone] | | +--------+--------+ + + + + Encounter Details +--------+---------+ + + + | Date | Type | Department | Care Team | Description | +--------+---------+ + + + | 07/27/ | Office | Digestive Health | Trice Marie MD | Rectovaginal fistula | | 2016 | Visit | Center at [facility] [address] | [address] | (Primary Dx); | | | | [facility] | [facility]en [facility], | Crohn's disease of | | | | for Health and | [place] [address] | both small and large | | | | Healing, [address] | [phone] | intestine with | | | | [place], [place] | | complication (HCC) | | | | [address] | | | | | | [phone] | | | +--------+---------+ + + + [...] Dimple in her vagina seen by her REHABILITATION THERAPY AIDE ~1995 For fibroids and vaginal bleeding, she [...] Referral patient, I spent 62 minutes of rwwy-cw-iidx time, of which more than half the [...] colonos copy was this past month at [facility] in [facility] with Dr. Krishna, which per patient [...] alcohol or use illicit drugs. Lives in [place] with her . FH: Family History: None [...] Recommendations: 1) Review outside colonoscopy completed at [facility] - request has been sent 2) Plan for flex sig locally in [place] in 8 weeks time. Patient to send [...] | + +--------+ + + + | NM ANOSCOPY, DIAG | Routin | 08/04/2015 | [...]
--- OUTSIDE RECORDS SUMMARY | ~2019-11-05 | XMS | Encounter Summary ---
Demographics + + + | Address | [address] | | | [place] [address] | + + + | Home Phone | | + + + | Preferred Language | Unknown | + + + | Marital Status | | + + + | Alevism Affiliation | Unknown | + + + | Race | Unknown | + + + | Ethnic Group | Unknown | + + + Author + + + | Author | [facility] | | | and [place] | + + + | Organization | [facility] | | | [...] Team Providers + +------+ + | Care Public Affairs Specialist Name | Role | Phone | + +------+ + | No, Physician | PCP | Unavailable | + +------+ + Encounter Details +--------+ + + + + | Date | Type | Department | Care Team | Description | +--------+ + + + + | 08// | Orders Only | [facility] | [place] [place] | | | 2014 | | CONVERSION DEP [address] | Marcial [address], [address] | | | | [address] | [address] | | | | | [place], [place] | [place] [address] | | | | | [address] | [phone] | | | | | [phone] | | | +--------+ + + + [...]
--- OUTSIDE RECORDS SUMMARY | ~2019-11-05 | XMS | Clinical Summary ---
Demographics + + + | Address | [address] | | | [place] [address] | + + + | Home Phone | | + + + | Preferred Language | Unknown | + + + | Marital Status | | + + + | Jewish Affiliation | NRP | + + + | Race | White | + + + | Ethnic Group | Not or | + + + Author + + + | Author | [facility] | + + + | Organization | [facility] | + + + [...] [place], [place] | | | | | [address] | | + + + + + | Cami Sawyer | ECON | Unknown | | + + + + + Care Team Providers + +------+ + | Care Rn Private Duty Name | Role | Phone | + +------+ + | Aren Rose DO | PCP | | + +------+ + Source Comments [facility] is fully live on both EpicCare Ambulatory and EpicCare InPatient.[facility] Allergies + + + + + + [...] + + | Overview: Vaccinations given at [facility] pneumonia and flu and | | at [facility] HIB and meningeal coccal 04/25 | [...] | | | | | | | [address] | | + +--------+ +--------+ + +--------+ | [place] [employer] | AARP | xxxxxxxxx-x | 04/11/19 | [phone] | [address] | Indemn | | RETIRED PEOPLE | | | 13-Pre | 9 | [phone] | ity | | | | | sent | | [place], [place] | | | | | | | | [address] | | + +--------+ +--------+ + +--------+ [...] | 1956 | [phone] | [place] [address] | | | bianca | | | [address] (Home) | | | | | | | [phone] | | | | | | | [...]
--- OUTSIDE RECORDS SUMMARY | ~2019-11-05 | XMS | Encounter Summary ---
Demographics + + + | Address | [address] | | | [place] [address] | + + + | Home Phone | | + + + | Preferred Language | Unknown | + + + | Marital Status | | + + + | Adventist Affiliation | Unknown | + + + [...] Team Providers + +------+ + | Care Assembly Press Operator Name | Role | Phone | + +------+ + PCP | Unavailable | + +------+ + Encounter Details +--------+ + + + + | Date | Type | Department | Care Team | Description | +--------+ + + + + | 03/01/ | Hospital | [facility] | Gabriel Myrick | Anemia, unspecified | | 2017 - | Encounter | [facility] | MD [address] | type; Current | | | | CARE FLOOR [address] | chronic use of | | 03/02/ | | [address] | [place] [address] | systemic steroids; | | 2017 | | [place], [place] | [phone] | Gastroesophageal | | | | [address] | | reflux disease | | | | [phone] | | without esophagitis; | | | [...] Internal Medicine Author Type: Resident-Y1 Filed: 03/02/17 1328 Date of Service: 03/02/17705 Status: Attested Lung Puller: BRIAN OttoR2 (Resident-Y2) Cosigner: Chace Benson MD [...] with the progress note of Dr. Jimenez. [facility] Service: Hospitalist Resident Discharge Summary Date of [...] being seen by Dr. Tomi CLAYTON in [place]. Antonia he previously underwent a small bowel [...] on file. Follow up: Alireza Krishna MD [address], [address] [place] [address] Call office for appointment. Medication List START [...] Your Medications [facility] [place], [place] - [address] [facility] [address] [facility] [place] [address] metroNIDAZOLE 500 MG tablet Na sulfate-K sulfate-Mg sulf 17.5-3.13-1.6 GM/180ML Soln neomycin 500 MG tablet scopolamine 1 mg/3days patch These medications were sent to [facility] [address] [facility], [place] - [address] [facility] [address] , [place] [address] acetaminophen 325 MG tablet lactobacillus granules potassium [...] Note by Gloria Hernandez RN at 03/02/17 3007 Author: Gloria Hernandez RN Service: (none) Author Type: Registered Nurse Filed: 03/02/17 1600 Date of Service: 03/02/17 7168 Status: Signed Lung Puller: Gloria Hernandez RN (Registered Nurse) Discharge instructions given to pt and , all questions answered. VSS. Discharged jena e via private vehicle with . onver roshan Transaction, Provider Unknown - 03/02/2017 12:54 PM PST Case Management by Linh Perez RN at 03/02/17 1972 Author: Linh Perez RN Service: (none) Author Type: Registered Nurse Filed: 03/02/17 1257 Date of Service: 03/02/17 2648 Status: Signed Lung Puller: Linh Perez RN (Registered Nurse) Pt to d/c home today with Lovenox. Met with pt and she states she can sole tacker herself Lovenox injections. Faxed script to [facility] pharmacy for russell check. Notified Marilin with [facility] of d/c. Faxed resumption order to [facility]. Family to trasnport pt home KAMRYN signed Nika Abbi Patel [facility] - 03/02/2017 12:47 PM PSTFormatting of this note might be different from the or iginal. Progress Notes by Abbi Hussein RPH at 03/02/177 Author: Abbi Hussein RPH Service: Pharmacy Author Type: Pharmacist Filed: 03/02/171246 Date of Service: 03/02/171246 Status: Signed Lung Puller: Abbi Hussein RPH (Pharmacist) INITIATION OF Parenteral Nutrition: Smita Willingham 61 y.o. female Height: Ht Readings from Last 1 Encounters: 03/02/17 1.727 m (5' 8") Weight: Wt Readings from Last 1 Encounters: 03/02/17 74.2 kg (163 lb 9.3 oz) Body Mass Index: Body mass index is 24.87 kg/m. [place] Body Weight: 63.9kg Adjusted Body Weight: 68.0kg Creatinine: CREATININE Date Value Ref Range Status 03/02/2017 0.7 0.50 - 1.00 mg/dL Final Estimated CrCl : Serum creatinine: 0.7 mg/dL 03/02/17 0405 Estimated creatinine clearance: 85.1 mL/min Estimated Needs: Basal Energy Expenditure (BEE): 1409kcal BEE x Major Non - Elective Surgery: = 0833-4509 Kcal needed per day Protein Requirements: Infection, Major Surgery, Cancer: 1.3 - 1.6 g/kg/day PN Line: Central Dextrose: 20% Amino Acids: 6% Lipid 20% 250 mL PN Goal Rate: 65 mL/hr PN Rate on Day 1: 25 mL/hr for 24 hours Amount of non-protein calories and grams of protein this provides: 1561 kcal + 93.6gm Jm=251; CO2=17. Initiating TPN with low Cl formula Pharmacy will continue to follow Pharmacist: ABBI HUSSEIN 03/02/2017 12:43 PM onversio n Transaction, Provider Unknown - 03/02/2017 11:58 AM PSTFormatting of this note might be di fferent from the original. Progress Notes by Honey Gamboa RD at 03/02/17 8045 Author: Honey Gamboa RD Service: (none) Author Type: Registered Dietitian Filed: 03/02/17 6236 Date of Service: 03/02/171157 Status: Signed Lung Puller: Honey Gamboa RD (Registered Dietitian) 03/02/17 1130 Subjective Timepoint Admit (Consult: home TPN, wt loss) Pt c/o Pt with hx of Crohn's and chronic diarrhea. She states she has been on TPN for 3 we eks and she has not been eating. Pt currently feeling scared to eat, as she does not want i ncreased diarrhea. Diet Experience Home Nutrition Support TPN from [facility] in [place]: 275 g Dextrose, 90 g AA, 40 [...] Date of Service: 03/02/17 1129 Status: Signed Lung Puller: Linh Perez RN (Registered Nurse) 03/02/17 1100 [...] colostmy surgery on Tuesday. Pt lives in [place] with spouse. Pt is indep with all her ADL's. No use of home O 2, no HD. Pt does use a cane and walker as needed. Pt established on coumadin with [place] [facility]. Patient's PCP is: Dr Davina Cox/[facility]. Pt has appnt on 03/[facility] with this PCP Patient's insurance: medicare/[employer] Coverage concerns: no Medication coverage/concerns: no Rx [...] Date of Service: 03/02/17 1037 Status: Signed Lung Puller: Ryan Ariza RN (Registered Nurse) Infection Prevention [...] 03/01/172257 Date of Service: 03/01/172257 Status: Signed Lung Puller: Hamilton Drummond RPH (Pharmacist) Note ccl 76.4ml/min meds reviewed pharmacy will follow rdc 2258 onver roshan Transaction, Provider Unknown - 03/01/2017 10:35 PM PST Nurse Progress Note by Mila Dolan RN at 03/01/172234 Author: Mila Dolan RN Service: (none) Author Type: Registered Nurse Filed: 03/02/17 0625 Date of Service: 03/01/172234 Status: Addendum Lung Puller: Mila Dolan RN (Registered Nurse) Related Notes: Original Note by Mila Dolan RN (Registered Nurse) filed at 03/02/17 [phone] Pt transported to room 4439, via stretcher. [...] 03/02/17801 Date of Service: 03/01/172006 Status: Signed Lung Puller: Gabriel Myrick MD (Physician) Related Notes: Original Note by Gabriel Myrick MD (Physician) filed at 03/02/17 0715 HISTORY AND PHYSICAL for Smita Willingham,female,1955,61 y.o. who is being admitted to the adult hospitalist service at [facility]. Date of Admission: 03/01/2017 Requesting Physician: [...] SETON PLACEMENT; Surgeon: Enrique Bocanegra MD; Location: [facility]; Service: General; Laterality: N/A; APPENDECTOMY CHOLECYSTECTOMY ESOPHAGOGASTRODUODENOSCOPY Left 08/06/2015 Procedure: ESOPHAGOGASTRODUODENOSCOPY; Surgeon: Sheng Rios MD; Location: [facility] ENDOSCOPY; Service: Gastroenterology; Laterality: Left; ESOPHAGOGASTRODUODENOSCOPY N/A 04/21/2014 Procedure: ESOPHAGOGASTRODUODENOSCOPY; Surgeon: Bony Petty MD; Location: [facility] BEDSIDE PROCEDURE; Service: Gastroenterology; Laterality: N/A; HYSTERECTOMY LAPAROTOMY N/A 04/23/2014 Procedure: EXPLORATION - LAPAROTOMY; Surgeon: Bogdan Moser DO; Location: [facility] MAIN O R; Service: General; Laterality: N/A; LYSIS OF ADHESIONS PORTACATH PLACEMENT Left SMALL INTESTINE SURGERY SPLENECTOMY, TOTAL N/A 04/23/2014 Procedure: SPLENECTOMY; Surgeon: Bogdan Moser DO; Location: [facility] MAIN OR; Service: General; Laterality: N/A; [...] Consults by Enrique Bocanegra MD at 03/02/17 4984 Author: Enrique Bocanegra MD Service: General Surgery Author Type: Physician Filed: 03/02/17 1761 Date of Service: 03/02/17 2309 Status: Addendum Lung Puller: Enrique Bocanegra MD (Physician) Related Notes: Original [...] She was then recommended to go to [place] for a second opinion. She never went to [place] due to the trip being a hardship [...] SETON PLACEMENT; Surgeon: Enrique Bocanegra MD; Location: [facility] MAIN OR; Service: General; Laterality: N/A; APPENDECTOMY CHOLECYSTECTOMY ESOPHAGOGASTRODUODENOSCOPY Left 08/06/2015 Procedure: ESOPHAGOGASTRODUODENOSCOPY; Surgeon: Sheng Rios MD; Location: [facility] ENDOSCOPY; Service: Gastroenterology; Laterality: Left; ESOPHAGOGASTRODUODENOSCOPY N/A 04/21/2014 Procedure: ESOPHAGOGASTRODUODENOSCOPY; Surgeon: Bony Petty MD; Location: [facility] BEDSID E PROCEDURE; Service: Gastroenterology; Laterality: N/A; HYSTERECTOMY LAPAROTOMY N/A 04/23/2014 Procedure: EXPLORATION - LAPAROTOMY; Surgeon: Bogdan Moser DO; Location: [facility] MAIN OR; Service: General; Laterality: N/A; LYSIS OF ADHESIONS PORTACATH PLACEMENT Left SMALL INTESTINE SURGERY SPLENECTOMY, TOTAL N/A 04/23/2014 Procedure: SPLENECTOMY; Surgeon: Bogdan Moser DO; Location: [facility] MAIN OR; Service : General; Laterality: [...] 03/01/172003 Date of Service: 03/01/172000 Status: Signed Lung Puller: Miladys Cardoso RN (Registered Nurse) Per pt [...] 03/01/171906 Date of Service: 03/01/171905 Status: Signed Lung Puller: Missy Lee RN (Registered Nurse) Pt receives [...] 03/02/177 Date of Service: 03/01/171904 Status: Signed Lung Puller: Hammad Zuñiga DO (Physician) [facility] History of Present Illness Chief [...] Crohn's disease (HCC) Deep vein thrombosis (DVT) ([facility]) right leg and then travelled to spleen [...] SETON PLACEMENT; Surgeon: Enrique Bocanegra MD; Location: [facility] OR; Service: General; Laterality: N/A; APPENDECTOMY CHOLECYSTECTOMY ESOPHAGOGASTRODUODENOSCOPY Left 08/06/2015 Procedure: ESOPHAGOGASTRODUODENOSCOPY; Surgeon: Sheng Rios MD; Location: [facility] ENDOSCOPY; Service: Gastroenterology; Laterality: Left; ESOPHAGOGASTRODUODENOSCOPY N/A 04/21/2014 Procedure: ESOPHAGOGASTRODUODENOSCOPY; Surgeon: Bony Petty MD; Location: [facility] BEDSIDE PROCEDURE; Service: Gastroenterology; Laterality: N/A; HYSTERECTOMY LAPAROTOMY N/A 04/23/2014 Procedure: EXPLORATION - LAPAROTOMY; Surgeon: Bogdan Moser DO; Location: [facility] MAIN O R; Service: General; Laterality: N/A; LYSIS OF ADHESIONS PORTACATH PLACEMENT Left SMALL INTESTINE SURGERY SPLENECTOMY, TOTAL N/A 04/23/2014 Procedure: SPLENECTOMY; Surgeon: Bogdan Moser DO; Location: [facility] MAIN OR; Service: General; Laterality: N/A; [...] Component Value Ref Range Date/Time Cardiac Panel [[id number]] (Abnormal) Collected: 03/01/171900 Order Status: Completed Updated: [...] 1845 Sinus tachycardia with rate of 109 HI interval 338 QTC 514 Nonspecific T-wave changes, [...] 03/01/171852 Date of Service: 03/01/171852 Status: Signed Lung Puller: Snow Perez RN (Registered Nurse) Bed: 18 [...] 03/02/1732 Date of Service: 03/02/1732 Status: Signed Lung Puller: Mila Dolan RN (Registered Nurse) Problem: Safety [...] 03/01/172108 Date of Service: 03/01/172108 Status: Signed Lung Puller: Blanca Fernandez RPH (Pharmacist) Rx Admission Medication History Note I have reviewed the medication history for appropriate doses obtained by: Drink Waiter . After reviewing the home medication list : I agree with the home medication list. - Reviewed medication history with student education specialist due to computer access - Patient has [...] | | | | performed at [facility] | | | | | | [address];[place] | | | | | | [address] | | | | + + + [...] LAB | | | | performed at [facility], [address] | | | | | | [address] [place], | | | | | | [place] [address] | | | | + + + [...] | | | | | [place] [address] | | | | + + + [...] | | | | | [place] [address] | | | | + + + [...] EXTERNAL | | | | performed at [facility], [address] | | LAB | | | | [address] [place], | | | | | | [place] [address] | | | | + + + [...] | | | | | | at [facility], [address] | | | | | | [address] [place], | | | | | | [place] [address] | | | | + + + [...] | | | | | | [facility];[address];[place] [address] | | | | + + + [...] | | | | | | 01-MAR-2017 16:59,[place] | | | | | | interval [...] (500), | | | | | | society editor Hieu Tabor | | | | [...]
--- OUTSIDE RECORDS SUMMARY | ~2019-11-05 | XMS | Encounter Summary ---
Demographics + + + | Address | [address] | | | [place] [address] | + + + | Home Phone | | + + + | Preferred Language | Unknown | + + + | Marital Status | | + + + | Denominational Affiliation | NRP | + + + | Race | White | + + + | Ethnic Group | Not or | + + + Author + + + | Author | [facility] | + + + | Organization | [facility] | + + + | Address | Unknown | + + + | Phone | Unavailable | + + + Support + + + + + | Name | Relationship | Address | Phone | + + + + + | Kole Hartley | LAMONT | [address] | | | | | [place], [place] | | | | | [phone] | | + + + + + | Cami Sawyer | ECON | Unknown | | + + + + + Care Team Providers + +------+ + | Care Reaming Machine Operator For Plastic Name | Role | Phone | + [...] Description | +--------+---------+ + + + | 03/17/ | Surgery | [address]A [address] | Mirela Salgado, | RIGHT POPLITEAL | | 2011 | | [address] | [address] | ANTEROTIBIAL | | | | Ramiro Salcedo | [address] | EMBOLECTOMY | | | | Hospital Admitting | [place], [place] | | | | | Desk Located on the | [address] | | | | | 9th floor | [phone] | | | | | [place], [place] | | | | | | [address] | | | +--------+---------+ + + + [...] was transferred from an outside hospital [facility] for ischemic colitis. Hospital Course: Arterial thrombi: the patient was admitted to [facility] from [place] because she presented wit h nausea, bilious vomiting and was found by CT scan to have bowel wall thickening, 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 At arrival to [facility] it was learned that she did NOT indeed have ischemic colitis. 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 She underwent embolectomy on 03/17, which resulted in jehovah's witness of flow and no loss of tissue [...] was agreed that the patient needed a correction treatment and we settled o n remicade. [...] flag[facility] - [facility] However, vanc/cefepime/flagyl was used instead for [...] 03/20 and an infectious work-up was [facility]. She was already receiving cipro and flagyl [...] Destination: Home Other Discharge Orders and Instructions wastewater supervisor your lovenox syringes at [facility] [place] [facility]. Go to the hospital on Tuesday for an INR check. The results should be sent to Dr. Maloney ( Dr. Rose's partner). He will communicate with you about a change in dose if necessary. , on Tuesday you should return to Dr. Rose's office. At that time, you should have an other INR check. Your INR goal should be 2.5-3.0. It is imperative that you continue coumadin to prevent fut ure clots from forming. Please call your GI doctor in [facility] to arrange for your second infusion of [...] whether or not the INR is truly physician representative of anticoagulation. In patients with APLA [...] with an I NR on Tuesday. KIRIT RUST MD [facility] DEPARTMENT: [id number]- [facility] Place of Service:- Inpatient Date of Service: 04/01/2012 CSN: [id number] Suggested Modifier: GC Resident Involved: Yes Suggested CPT: 54695- Dishcarge < 30 min Electronically signed by [...] questions. Debi Oconnor MD GI/Hepatology Fellow Pager: [phone] INTERVAL HISTORY: MRI abdomen shows no abscess; [...] La Rosa MD - 03/31/2012 11:45 PM PST3 Internal Medicine Attending Interval note [...] risk of emboli, I called Dr. Rodriges (integration consultant for her PCP) to coordinate f/u [...] noted any additions above. KIRIT RUST MD [facility] DEPARTMENT: [id number]- [facility] Place of Service:[id number]- Inpatient Date of Service: 03/31/2012 CSN: [id number] Suggested Modifier: GC Resident Involved: Yes Suggested CPT: 93031- Subsequent, Detailed/high complex, 35 min Davonte De [...] Assessment and Plan Hospital Day # 19 Patient:Mackenzei Hartley, Attending: Xin Rust MD Author:VIVIANA Steele [...] associated with hypercoagulable state: J Gastroenterol. 2004 Oct;39(10):948-54. PubMed PMID: [id number]. Consulted Heme for further studies on platelet [...] no insurance. Wanting to go home for [place]. Nurse repor ts that she has admitted [...] income that does not q ualify for jose. F/E/N Thrombosis ppx: Warfarin, Lovenox bridge Glucose: not indicated Diet: regular Code: Do Not Resuscitate/Do Not Intubate This patient was seen with GM3, refer to Attending and Resident notes for assessment and pl an. Nuñez [place], Sub-Head Track Coach Pgr: [phone] Rj, Ajay Barrett MD - 03/30/2012 11:39 PM [facility] Internal Medicine Attending Interval note - LATE [...] bridge after d/c until coumading therapeutic with home care and home health aides teacher through medication assistance program Hypoalbuminemia (03/14/2012) Assessment: [...] noted any additions above. KIRIT MD YOCASTA [facility] DEPARTMENT: [id number]- [facility] Place of Service:- Inpatient Date of Service: 03/30/2012 CSN: [id number] Suggested Modifier: GC Resident Involved: Yes Suggested CPT: 38580- Subsequent, Detailed/high complex, 35 min Debi Yepez [...] follow closely Shaun SAEED GI Fellow Pg [phone] signed by Debi Oconnor MD at 03/30/2012 5:32 PM Jacoby Ko MD - 03/30/2012 10:25 AM PSTFormatting of this note might be different from the origi nal. [facility] DEPARTMENT OF SURGERY Daily Progress Note PROGRESS NOTE: Attending Physician: Xin Rust MD 03/31/2012 Subjective/Overnight Events: - latest CT shows resolution of abscess - no GI bleeding - no rectal/anal pain - tolerating reg diet MEDICATIONS: Reviewed in [facility] VITAL SIGNS: Refer to [facility] Intake/Output Summary (Last 24 hours) at [...] concerns. Jacoby Tovar MD Surgery, R2 Diagnoses: [id number] Crohn disease This assessment and plan was [...] or exceptions in my pro su note. hristanile Joaquin Herron - 03/30/2012 7:51 AM PST Medicine Progress Note Refer to Attending and Resident Notes for Assessment and Plan Hospital Day # 18 Patient:Mackenzie Hartley, Attending: Xin Rust MD Author:Joaquin Herron VIVIANA Rivera ID: Mackenzei Hartley is a 56 y.o. female with [...] 3 results) Recent Labs Basename 03/30/12 0356 03/29/1244103/28/12 2357 WBC 17.0* 14.2* 15.1* HB 9.9* 9.7* 9.7* HCT 31.1* 30.3* 30.5* PLT 471* 490* 551* NEUTROPERC -- -- -- BANDPCT -- -- -- LYMPHPERC -- -- -- MONOPERC -- -- -- BASOPERC -- -- -- EOSPERC -- -- -- Chemistries: Last 72 Hours (or 3 results): Recent Labs Basename 03/30/12 0356 03/29/122 03/28/12 1653 03/28/12 1648 03/28/12 0644 NA [...] state: J Gastroenterol. 2004 Jan;39(10):948-54. PubMed PMID: [id number]. Consulted Heme for further studies on platelet [...] appointments and insurance coverage her largest is syl. Appreciate CM looking for other options of [...] this note might be different from the [facility]. Transfer Accept Note Patient: Mackenzie Hartley Attending: [...] % Intake/Output Summary (Last 24 hours) at 03/29/122 Last data filed at 03/29/12 1800 Gross [...] mg Intravenous Q4H PRN 2 mg (03/29/12 173) polyethylene glycol (aka MIRALAX) powder 17 g [...] Nathan Weeks MD Internal Medicine PGY1 Pager [phone] Cecilia Baker MD - 03/29/2012 6:37 PM PST Vascular [...] team. Debi Oconnor MD GI Fellow Pager [phone] signed by Debi Oconnor MD at 03/29/2012 3:36 PM PSTDiSa mikayla alvarado MD - 03/29/2012 12:54 PM PSTGastroenterology Procedure [...] planning) Debi Oconnor MD Fellow, Gastroenterology pager: [phone] signed by Debi Oconnor MD at 03/29/2012 [...] note for this encounter. OSBALDO GARCIA MD [facility] [address] [place] [address] Andrew Shah MD - 10:41 AM PST [facility] DEPARTMENT OF SURGERY Daily Progress Note PROGRESS NOTE: Attending Physician: Osbaldo Garcia MD 03/29/2012 Subjective/Overnight Events: - bowel prep initiated - Hct stable - no hematochezia or hemetemesis - MEDICATIONS: Reviewed in [facility] VITAL SIGNS: Refer to EPIC Intake/Output Summary (Last 24 hours) at 03/29/12 [...] GI Jacoby Tovar MD Surgery, R2 Diagnoses: [id number] Crohn disease This assessment and plan was [...] Osbaldo Mcfarlane MD - 03/29/2012 6:06 AM PSTMICU ATTENDING PROGRESS NOTE Author: OSBALDO GARCIA [...] myself provided conscious sedation. OSBALDO GARCIA MD [facility] [address] [place] [address] I spent 35 min in critical care (not including procedures) [facility] DEPARTMENT: MICU, [facility]- [id number] Place of Service: - Date of Service: 03/29/2012 CSN: [id number] Modifiers:GC Resident Involved: yes Suggested CPT: 10067 Critical Care, Initial 30-74 minutes Carlton Godwin [...] day of transfer to MICU (1 05/29/11), [facility] informed us that according to the most [...] kg (159 lb 9.8 oz) Date 03/28/12 07 - 03/29/12 0659 03/29/12 07 - 03/30/12 0659 Shift 0187-5097 1399-1276 6455-8671 Daily Total 3469-6505 9156-4262 8157-5273 Daily Total I N T A K E P.O. 1750 2525 4275 I.V. 934 0201 898 7132 Shift Total 934 3740 3450 8124 O U T P U T Urine 1075 2950 1875 5900 Urine 1075 2950 1875 5900 Other 575 698 067 1840 Measured Stool Output 350 425 775 Stool/Urine Mix 575 575 Shift Total 1650 3300 2300 7250 NET -294 538 4571 874 Intake/Output Summary (since admission) at 03/12/12 1910 Last data filed at 03/29/12 0547 Gross for the last 17 days Intake 93475 ml Output 79815 ml Net since Admission -07081 ml Physical Exam: General Appearance: middle aged [...] Carlton Betancourt DO PGY-1 Internal Medicine Pager [phone] Debi Yepez MD - 03/11 4:31 PM [...] questions. Debi Oconnor MD GI/Hepatology Fellow Pager: [phone] INTERVAL HISTORY: Episode of melena last night then bright red blood per rectum this morning Hemodynamically stable but decrease in hct from 30 to 24 Transferred to [facility] INPATIENT MEDICATIONS acetaminophen (aka TYLENOL) tablet 650 [...] the MICU resident and the team. Se e resident note for details. 56-year-old lady with [...] will plan to consult [facility] who hav e seen the patient in the past. OSBALDO GARCIA MD [facility] [address] [address] I spent 35 min in critical care (not including procedures) EPIC DEPARTMENT: [facility], [facility]- [id number] Place of Service: Date of Service: 03/28/2012 CSN: [id number] Modifiers:GC Resident Involved: yes Suggested CPT: 97360 Critical Care, Initial 30-74 minutes Carlton Godwin [...] gas in the wall. For this reason, has asked the MICU team to consult [...] 72.4 kg (159 lb 9.8 oz) Date 03/27/12699 - 03/28/12 0659 03/28/12699 - 03/29/12 0659 Shift 5987-5453 3629-3875 3324-6579 Daily Total 8546-3843 6083-3783 3473-3524 Daily Total I N T A K E P.O. 240 300 540 I.V. 404 404 934 934 Blood 1300 1300 Shift Total 197 865 2612 2244 934 934 O U T P U T Urine 500 1200 1700 1075 1075 Urine 500 1200 1700 1075 1075 Other 575 575 Stool 1 1 2 Stool/Urine Mix 575 575 Shift Total 500 1200 1700 1650 1650 NET -260 300 504 544 -716 -716 Intake/Output Summary (since admission) at 03/12/12 1910 Last data filed at 03/28/12 1400 Gross for the last 16 days Intake 84109 ml Output 77661 ml Net since Admission -51279 ml Physical Exam: General Appearance: tearful middle [...] go but MICU attending conversation with osiris iology decided to proceed with CT abdomen [...] Carlton Betancourt DO PGY-1 Internal Medicine Pager [phone] Andrew Shah MD - 6:52 AM PST [...] Andrew Babin MD at 03/28/2012 4:27 PM Gayla Mccann MD - 03/28/2012 6:52 AM PST INPATIENT [...] Sukumar Zuniga DO Internal Medicine PGY-2 Pg [phone] Davonte De La Rosa MD - 03/27/2012 [...] documentation and have noted any additions above. KIRITYann RUST MD [facility] DEPARTMENT: [id number]- [facility] Place of Service:- Inpatient Date of Service: 03/27/2012 CSN: [id number] Suggested Modifier: Resident Involved: Yes Suggested CPT: 01840- Subsequent, Detailed/high complex, 35 min Marely Mccann [...] Deferred Ext: WWP Labs: Recent Labs Basename 03/27/1252603/26/1243503/25/123 03/18/12 1458 03/12/12 1918 WBC 16.5* 13.7* [...] (or 3 results): Recent Labs Basename 03/27/1252603/26/126 03/25/12 031 NA 143 142 141 K 3.6 3.3* [...] was discussed and formulated with gastroenterology at [facility], Dr. Hennessy. Please call with any questions. Debi Oconnor MD GI/Hepatology Fellow Pager: [phone] INTERVAL HISTORY: Imaging reviewed with radiology; too [...] Dung Victor - 2 11:30 AM PST CHARGE ACCOUNT IDENTIFICATION CLERK NOTE: Visited with Patient. 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 Shaft Mechanic team will follow as needed. Chaplain Dung Riley M.Div., [facility] [phone] Pager #[phone]; #[phone] Xin De La Rosa MD - 7:31 [...] Hartley, Attending: Xin Rust MD Author:Joaquin Herron Nicole, MS4 ID:Mackenzie Hartley [...] (or 3 results) Recent Labs Basename 03/27/12 0503/26/12 0436 03/25/12 0313 WBC 16.5* 13.7* 16.8* [...] I S. - - IV cefepime day 5/7 (PCN allergy, start 03/22), and IV Flagyl [...] Colonoscopy in 4-6 weeks, will ask Mrs. aHrtley about her preference of provider #Thrombophilia - [...] J Gastroenterol. 2004 Jan;39(10):948-54. PubMed PMID: [id number]. Consulted Heme for further studies on platelet [...] an. ---- Joaquin Rivera, MS4 Pager # [phone] signed by Xin Rust MD at 03/27/2012 [...] noted any additions above. 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 Raphael Norman MD Internal Medicine, PGY-2 [id number] Xin De La Rosa MD - 03/25/2012 8:58 PM PSTGM3 Internal Medicine Attending Interval note [...] persists - not larger Resident spoke with professor of radiology who spoke with staff [...] taking more PO if still low ask paste plant supervisor to see Hypophosphatemia (03/14/2012) Assessment: rechecked and [...] noted any additions above. KIRIT MD YOCASTA [facility] DEPARTMENT: [id number]- [facility] Place of Service:- Inpatient Date of Service: 03/25/2012 CSN: [id number] Suggested Modifier: Resident Involved: Yes Suggested CPT: 08399- Subsequent, Detailed/high complex, 35 min oaquin Rivera - 03/25/2012 1:07 PM PST Medicine Progress Note Refer to Attending and Resident Notes for Assessment and Plan Hospital Day # 13 Patient:Mackenzie Hartley, Attending: Xin Rust MD Author:Joaquin Rivera, MS4 ID: Mackenzie Hartley is a 56 y.o. [...] hours (or 3 results) Recent Labs Basename 03/25/1231203/24/1232 03/23/12 0736 WBC 16.8* 17.6* 18.6* HB [...] J Gastroenterol. 2004 Jan;39(10):948- 54. PubMed PMID: [id number]. Consulted [facility] for further studies on platelet inhibitor [...] identified, insurance coverage her large st issue, CM looking to other options for care since patient has income that does not qualif y for jose F/E/N Thrombosis ppx: Warfarin Glucose: not indicated Diet: regular Code: Do Not Resuscitate/Do Not Intubate This patient was seen with GM3, refer to Attending and Resident notes for assessment and pl an. ---- Joaquin Rivera, VIVIANA Pager # [phone] Ajay De La Rosa MD - 03/24/2012 [...] drainage of abscess and coordination of care [facility] radiology reviewing perirectal abscess imaging, options for intervention and need for rep eat imagin, also with GI on plan. I personally interviewed the patient, performed the gunter elements of the physical examinatio n, and personally formulated the assessment and plan with the resident. I agree with the MS4 s documentation and have noted any additions above. KIRIT MD YOCASTA [facility] DEPARTMENT: [id number]- [facility] Place of Service:- Inpatient Date of Service: 03/24/2012 CSN: [id number] Suggested Modifier: Resident Involved: Yes Suggested CPT: 37428- Subsequent, Detailed/high complex, 35 min Davonte De La Rosa MD - 03/24/2012 8:19 AM PSTI personally interviewed the patient, performed the perti nent parts of the physical examination and personally formulated the plan with the resident. I agree with the MS4 documentation and have documented any additions or exceptions in my p rogress note. Joaquin Hui - 03/24/2012 8:19 AM PST Medicine Progress Note Refer to Attending and Resident Notes for Assessment and Plan Hospital Day # 12 Patient:Mackenzie Hartley, Attending: Xin Rust MD Author:VIVIANA [...] J Gastroenterol. 2004 Jan;39(10):948- 54. PubMed PMID: [id number]. Consulted Heme for further studies on platelet [...] an. ---- Joaquin Nicole, MS4 Pager # [phone] Ajay De La Rosa MD - 03/23/2012 10:44 PM PST3 Internal Medicine Attending Interval note [...] noted any additions above. KIRIT MD YOCASTA [facility] DEPARTMENT: [id number]- [facility] Place of Service:- Inpatient Date of Service: 03/23/2012 CSN: [id number] Suggested Modifier: GC Resident Involved: Yes Suggested CPT: 12513- Subsequent, Detailed/high complex, 35 min Davonte De La Rosa MD - 03/23/2012 10:24 PM PSTElectronically signed by Xin Rust MD at 03/24 1:15 PM Jeri Ricardo MD - 03/23/2012 10:34 AM PST Inpatient [...] kg/(m^2) O2 Delivery Device: None (room air) (03/23/12822) 24 Hour Vital Min/Max: Systolic (24hrs), Av [...] to be done today JERI DIAZ MD [facility] [address] [place] [address] Xin De La Rosa MD - 03/23/2012 7:47 AM PSTI personally interviewed the patient, performed the pertinent parts of the physical examination and personally formulated the plan with the resident. I agree with the MS4 documentation and have documented any additions or exceptions in my progress no te. oaquin Rivera - 03/23/2012 7:47 AM PST Medicine Progress [...] state: J Gastroenterol. 2004 Jan;39(10):948-54. PubMed PMID: [id number]. Consulted Heme for further studies on platelet [...] assessment and pl an. ---- Joaquin Rivera, VIVIANA Pager # [phone] Ajay De La Rosa MD - 03/22/2012 10:50 PM PST3 Internal Medicine Attending Interval [...] documentation and have noted any additions above. KIRITYann RUST MD [facility] DEPARTMENT: [id number]- [facility] Place of Service:- Inpatient Date of Service: 03/22/2012 CSN: [id number] Suggested Modifier: Resident Involved: Yes Suggested CPT: 53324- Subsequent, Detailed/high complex, 35 min ox, Jeri [...] 03/22/12 0703 03/22/12 0625 03/21/12 2250 03/21/12 04103/20/12 202 1 NA -- -- 141 -- [...] results) Recent Labs Basename 03/22/12 0625 03/21/12 04103/20/12 0700 WBC 24.3* 29.0* 25.7* HB 9.6* [...] injection 2 mg, 2 mg, Intracatheter, ONCE, Liz Torres ceFEPIme (aka MAXIPIME) IV (minibag+) 2 [...] carotid duplex ordered today JERI DIAZ MD [facility] [address] [place], [place] [id number] Xin De La Rosa MD - 03/22/2012 8:07 AM PSTI personally interviewed the patient, performed the pertinent parts of the physical examination and personally formulated the plan with the resident. I agree with the MS4 documentation and have documented any additions or exceptions in my progress n ote. oaquin Rivera - 03/22/2012 8:07 AM PST Medicine Progress Note Refer to Attending and Resident Notes for Assessment and Plan Hospital Day # 10 Patient:Mackenzie Hartley, Attending: Xin Rust MD Author:Joaquin Herron VIVIANA Rivera IID:Mackenzie Hartley is a 56 y.o. female [...] 03/20/12 202 1 NA -- 141 @ 0132hrs -- 142 139 K -- 3.8 Given [...] PTT in mixing 1:1 Neg cardiolipin, neg augw-L-fyhuexyyetqm Legionella Agg Urine pending Cultures: BLOOD CULTURE [...] barber: J Gastroenterol. 2004 Jan;39(10):948-54. PubMed PMID: [id number]. - Consult Heme for further studies on [...] an. ---- Joaquin Rivera, MS4 Pager # [phone] Ajay De La Rosa MD - 03/21/2012 [...] BP 142/76 | Pulse 106[sinus tach per rn telephonic[ | Temp 37.7 C (99.9 F) | [...] documentation and have noted any additions above. KIRITYann RUST MD I spent a total of 45 mins on care of this patient today - >50% spent on education and coun selling on nausea and pain management, new CXR findings, hypokalemia and other problems abov e -- also coordination of care with pharmD. [facility] DEPARTMENT: [id number]- [facility] Place of Service:- Inpatient Date of Service: 03/21/2012 CSN: [id number] Suggested Modifier: GC Resident Involved: Yes Suggested CPT: 97430- Subsequent, Detailed/high complex, 35 min Jennifer Tolentino FNP - 03/21/2012 12:38 PM PST . Vascular [...] y.o. Female with multiple complex medical problems; [facility] Vascular Surge ry consulted due [...] as new baseline Ok to discharge per [facility] Vascular Surgeons once ambulating and medical issues are stable. Will continue to follow while in patient. [facility] Vascular Surgery Clinic, [address], phone number [phone] Please schedule followup appointment within 2-3 weeks of surgery for wound check. Dr. Sukumar Salgado, [facility] Vascular Surgery Attending. MERT OLIVA [facility] VASCULAR SURGERY [facility] [place], [place] [id number] haMoses hill MD - 03/21/2012 6:55 AM PSTAgree with [...] w ill need to establish care with tubing tester so that further treatment options can be [...] assessment and plan. Moses Anthony MD Neurology Head Track Coach Pager [phone] oaquin Rivera - 02/2012 6:55 AM PST Medicine Progress Note Refer to Attending and Resident Notes for Assessment and Plan Hospital Day # 9 Patient:Mackenzie Hartley, Attending: Xin Rust MD Author:Joaquin Herron Rivera MS4 ID:Mackenzie Hartley is a 56 [...] Notes that perirectal abscess are not dr felton and are potential source of bacteremia. CXR [...] an. ---- Joaquin Goodwinidad, MS4 Pager # [phone] Xin De La Rosa M D - 03/20/2012 11:09 PM [facility] Internal Medicine Attending Interval note Hospital day: [...] documentation and have noted any additions above. KIRITYann RUST MD [facility] DEPARTMENT: [id number]- [facility] Place of Service:- Inpatient Date of Service: 03/20/2012 CSN: [id number] Suggested Modifier: GC Resident Involved: Yes Suggested CPT: 88789- Subsequent, Detailed/high complex, 35 min oeller, Jennifer Hill [facility] - 03/20/2012 3:36 PM PST . Vascular [...] y.o. Female with multiple complex medical problems; [facility] Vascular Surge ry consulted due [...] chair as tolerated, RLE WBAT -Please obtain Vasc Lab Arterial duplex ultrasound/DELORIS of both legs prior to discharge as n ew baselineObtain ABIs with waveforms To establish new blood-flow baseline Ok to discharge per [facility] Vascular Surgeons once ambulating and medical issues are stable. Will continue to follow while in patient. [facility] Vascular Surgery Clinic, [address], phone number [phone] Please schedule followup appointment within 2-3 weeks of surgery for wound check. Dr. Sukumar Salgado, [facility] Vascular Surgery Attending. MERT OLIVA [facility] VASCULAR SURGERY [address] [facility] [place] [address] icci, Raphael Saab MD - 03/20/2012 7:58 AM [...] Poor absorption and GI losses is dasha leo contributing. Reassess dispo tomorrow. The patient is full code. The patient was seen and examined with Dr. Rust, who agrees with the above assessment and plan. Raphael Norman MD Internal Medicine, PGY-2 [id number] oaquin Rivera - 7:58 AM PST Medicine [...] well. Nausea after flagyl, anxious, pain unchanged 5-09/18, chronic loose sto ol that are brown, [...] an. ---- Joaquin Rivera, MS4 Pager # [phone] atson, Juma Ferrer MD - 03/19/2012 3:35 PM PST Inpatient [...] and dry. Minimal edema. FARRUKH site wi th no FARRUKH, c/d/i. Pulse/signal exam: RLE with [...] HS, Dariela Santoyo MD, 15 mg at 1211/20 2156 promethazine (aka PHENERGAN) tablet 25 mg, 25 [...] record is Dr. Salgado. JUMA CARRINGTON MD [facility] [address] [place] [address] Chary Moore M D - 03/19/2012 9:14 [...] note from 03/14 for details. Therefore the nbut-oppt-galde plan givens s been to allow her [...] plan. Lovenox bridge to be covered by [facility]. 9) Occlusive thrombus 10) Hypoalbuminemia 11) Hypophosphatemia 12) TIA (transient ischemic attack) - with PFO 13) PFO (patent foramen ovale) - plan is for lifelong coumadin. No additional benefit from device closure per CLOSURE I trial. Chary Doherty MD Chief Resident, Internal Medicine Pager: [phone] [facility] DEPARTMENT: Hosp- [phone] Place of Service: - Date of Service: 03/19/2012 CSN: [id number] Modifiers:GC Resident Involved: Yes Suggested CPT: 60767 Subsequent Visit Detailed/High complexity 35 min I [...] which will be attempted under U/S kelsea pearl. Current Symptoms: Nausea -- chronic issue for [...] will need to establish c are with tubing tester so that further treatment options can be [...] assessment and plan. Moses Anthony MD Neurology Head Track Coach Pager [phone] tJose Antonio prado MD - 03/18/2012 1:01 PM PST Inpatient [...] Units, 5,600 Units, Intravenous, NEEDED (BOLUS), DARLING Pantoja-Kaiser, 5,600 Units at 03/13/12 0502 heparin in [...] Dariela Santoyo MD, 15 mg at 03/18/12 033 predniSONE (aka DELTASONE) tablet 15 mg, 15 mg, Oral, HS, Dariela Santoyo MD, 15 mg at 10/20 promethazine (aka PHENERGAN) injection 50 mg, 50 mg, Intravenous, Q4H PRN, Gloria Anthony MD , 50 mg at 03/18/12 123 warfarin (aka COUMADIN) tablet 5 mg, 5 [...] discharge from vascular perspective once ambulating JOSE ANOTNIO TONEY MD Chary Moore MD - 03/18/2012 [...] outpt GI, plans to establish care in [place], perhaps Dr. Harri. Transitioning to PO meds, ready for discharge [...] Doherty MD Chief Resident, Internal Medicine Pager: [phone] [facility] DEPARTMENT: Hosp- [phone] Place of Service: - Date of Service: 03/18/2012 CSN: [id number] Modifiers:AKHIL Resident Involved: Yes Suggested CPT: 31684 Subsequent Visit Exp Prob Foc/Mod Complexity 25 min I have spent 30 minutes with the patient of which more than 50% was spent counseling ham, Moses Asher MD - 03/18/2012 9:18 AM PST General [...] Date 03/18/12 07 - 03/19/12 0659 Shift 0117-8935 5435-5483 0786-1677 24 Hour Total I N T A K E P.O. 620 620 I.V. 20 20 40 Shift Total 640 20 660 O U T P U T Urine 675 100 775 Other 400 400 Shift Total 714 243 8427 Weight (kg) 74.1 74.1 74.1 74.1 General: [...] refusing). Will need to establish care with tubing tester so that further treatment options can be [...] in MS4 note. Moses Anthony MD Neurology Head Track Coach Pager [phone] signed by Moses Asher MD at 03/18/2012 9:50 PM Serenity Hui - 03/18/2012 9:18 AM PST Medicine Progress Note Refer to Attending and Resident Notes for Assessment and Plan Hospital Day # 6 Patient:Mackenzie Hartley, Attending: Chary Doherty MD Author:Joaquin Rivera, MS4 ID:Mackenzie Hartley is [...] Intake/Output Summary (Last 24 hours) at 03/18/12 0918 Last data filed at 03/18/12 0915 Gross per 24 hour Intake 2325 ml [...] for assessment and pl an. ---- Nuñez Nicole, MS4 Pager # [phone] Chary Moore MD - 03/17/2012 8:39 PM [...] refusing). Will need to establish care with tubing tester so this can be discussed as outpt [...] Doherty MD Chief Resident, Internal Medicine Pager: [phone] [facility] DEPARTMENT: Hosp- [phone] Place of Service: - Date of Service: 03/17/2012 CSN: [id number] Modifiers: Resident Involved: Yes Suggested CPT: 25244 Subsequent Visit Detailed/High complexity 35 min I [...] at end of case. MIRELA SALGADO MD [facility] [address] [address] [place] [address] ham, Gloria Lawson MD - 1 05/18/2011 [...] at 03/17/12 2104 Last data filed at 03/17/12 2032 Gross per 24 hour Intake 1445 ml [...] until she's therapeutic with her coumadin and [facility] has agreed to provide discounted INR checks [...] reatment for the abscess, but because Mrs. Mancia insurance coverage will not begin until t [...] to coordinate a GI provider of Mrs. Pascual marino's choosing. After her insurance begins in [...] y Gloria Anthony MD Neurology PGY1 Pager: [phone] oaquin Rivera - 10/2011 7:19 AM PST Medicine Progress Note Refer to Attending and Resident Notes for Assessment and Plan Hospital Day # 5 Patient:Mackenzie Hartley, Attending: Chary Doherty MD Author:Joaquin Rivera MS4 ID:Mackenzie Hartley is [...] an. ---- Joaquin Rivera, MS4 Pager # [phone] Chary Moore MD - 03/16/2012 12:56 PM [...] Doherty MD Chief Resident, Internal Medicine Pager: [phone] [facility] DEPARTMENT: Hosp- [phone] Place of Service: Date of Service: 03/16/2012 CSN: [id number] Modifiers:GC Resident Involved: Yes Suggested CPT: 90299 Subsequent Visit Exp Prob Foc/Mod Complexity 25 min and 59046 Subseque nt Visit Detailed/High complexity 35 min [...] flagyl to try to minimize nausea -f/u 03/12 blood cultures Crohn's Disease/flare - fistulizing disease [...] DNR/DNI Gloria Anthony MD Neurology PGY-1 Pager [phone] The patient was seen and discussed with the attending of record, Chary Doherty MD, who agrees with my assessment and plan. itze, Chary Ferrer MD - 03/15/2012 9:30 PM [...] Doherty MD Chief Resident, Internal Medicine Pager: [phone] [facility] DEPARTMENT: Hosp- [phone] Place of Service: - Date of Service: 03/15/2012 CSN: [id number] Modifiers:GC Resident Involved: Yes Suggested CPT: 89078 Subsequent Visit Detailed/High complexity 35 min Henrique Saeed, Dariela Saab - 03/15/2012 9:15 PM PSTINPATIENT PROGRESS NOTE [...] flagyl 500mg TID x 14 days -f/u 03/12 blood cultures Crohn's Disease/flare - fistulizing disease [...] plan. Dariela Santoyo MD Internal Medicine PGY-3 [id number] aryl Arteaga MD - 08/2011 7:18 PM PSTHematology Attending Consult Note: I saw and examined Ms. Hartley with the Hematology Fellow, Dr. Anthony Camejo and [facility] the 5A Medicine unit. I participated in the gunter components of today's [facility] pital visit including review of the [...] re Daryl Arteaga MD, PhD Hematology Oncology [facility] DEPARTMENT: [id number]- HEM FACULTY [facility] Place of Service: - Inpatient Date of Service: 03/15/2012 Modifiers: GC - Resident Involved Suggested CPT: 44828 - Subsequent, Detailed/High complex 35 min Anthony Maza MD - 03/15/2012 7:18 PM PST Hematology [...] anticoagulation clinic f/u closely; our clinic at [facility] cannot provide any suppli es [...] as above. MD Hematology/Oncology Fellow Pager # [phone] signed by Daryl Arteaga MD at 03/15/2012 11:23 PM PSTHoMorgan yanes M - 03/15/2012 4:31 PM PSTTransthoracic echocardiogram completed. [...] with any questions. Bigg Robles, R1 Pager: [phone] INTERVAL HISTORY: - NAEO - VSS, AF [...] Basename 03/15/12 0403 03/14/12 2105 03/14/12 1150 03/12/12 1918 WBC 23.7* 22.6* 22.7* -- HB 9.3* [...] Basename 03/15/12 0403 03/14/12 0525 03/13/12 0342 03/12/12 1918 NA 139 139 143 -- K 3.8 [...] wishes to pro ceed. Mirela Samano M.D. [facility] Vascular Surgery [address] [place] [address] Email: [email or web address], Sandoval Barrett MD - 03/15/2012 9:30 AM PSTPt clearly [...] off to day. Jacoby Tovar MD Surgery [id number] signed by Sandoval Tovar MD at 03/15/2012 9:36 AM PSTPhaliz, T savannah Lawson MD - 03/14/2012 5:40 PM PSTPost Rounds [...] monitor Gloria Anthony MD Neurology PGY1 Pager [phone] Daryl Singleton MD - 07/2011 4:57 PM PSTHematology Attending Consult Note: I saw and examined Ms. Hartley with the Hematology Fellow, Dr. Anthony Camejo in the [address] [place] [address] unit. I participated in the gunter components [...] re Daryl Arteaga MD, PhD Hematology Oncology [facility] DEPARTMENT: [id number]- HEM FACULTY [facility] Place of Service: - Inpatient Date of Service: 03/14/2012 Modifiers: GC - Resident Involved Suggested CPT: 17533 - Subsequent, Detailed/High complex 35 min Anthony [...] 1303 03/14/12 0939 03/14/12 0610 03/14/12 0525 03/13/12 0342 03/12/12 200 6 03/12/12 1918 NA -- -- -- 139 143 141 [...] as above. MD Hematology/Oncology Fellow Pager # [phone] signed by Daryl Arteaga MD at 03/14/2012 10:20 PM PSTGopal Casiano MD - 03/14/2012 1:55 PM PSTFormatting of [...] not really for treatment Recommendations communicated with 3 hr intern. We will continue to follow. This plan was discussed and formulated with gastroenterology at [facility], Dr. Casiano. Please call with any questions. Bigg Margaret, R1 Pager: [phone] Attending Attestation: I personally interviewed the patient, performed the relevant elements of the physical exami [facility] [place], and formulated the assessment and plan with [...] for 38 years. My recommendation would be c ontinue Mackenzie on antibiotics. The low-dose prednisone can be maintained (and possibly slowl y tapered in the future) given likely adrenal insufficiency. However, the prolonged prednis one use will be unlikely to provide her mucosal healing or return of normal bowel function a nd will like pose risks associated with long-term corticosteroid use. She may follow-up wit h her local tubing tester or may follow up with me at [facility] if she wishes to consider di fferent evaluation or treatment. Gopal Casiano MD [facility] Physicianpony edger Department of Gastroenterology INTERVAL HISTORY: - NAEO [...] 3 results): Recent Labs Basename 03/14/12 0525 03/13/1234103/12/12200503/12/121917 NA 139 143 141 -- K 3.8 3.3* 3.1* -- CL 106 109* 109* -- BICARB 23 19* 20* -- BUN 8 14 17 -- CR 0.73 0.66 0.77 -- CA 8.1* 8.0* 7.3* -- MG -- 2.8* -- 1.1* PO4 -- 1.1* -- 1.7* CRP level 14.0 IMAGING Reviewed outside imaging with radiologist at [facility] and CT abd and pelvis [...] 03/14/2012 Subjective: Pain unchanged to mildly improved. Hungry. Assessment and Plan: Mackenzie Hartley is a [...] Intake/Output Summary (Last 24 hours) at 03/14/12 0915 Last data filed at 03/14/12 0501 Gross [...] (or 3 results) Recent Labs Basename 03/14/12 0503/13/1234103/12/121917 WBC 23.4* 42.5* 40.1* HB 6.6* 7.9* 8.2* HCT 21.1* 25.5* 26.0* PLT 520* 606* 562* NEUTROPERC -- -- 97* BANDPCT -- -- 0 LYMPHPERC -- -- 0* MONOPERC -- -- 3 BASOPERC -- -- 0 EOSPERC -- -- 0* Chemistries: Last 72 Hours (or 3 results): Recent Labs Basename 03/14/12 0939 03/14/12 0603/14/1252403/13/1234103/12/12200503/12/12 191 8 NA -- -- 139 143 [...] hours (or 3 results) Recent Labs Basename 03/12/12200503/12/128 AST 14* -- ALT 8* -- TBILI 0.4 -- AP 93 -- ALB 1.9* 1.9* TP 6.0* -- Lab Results Component Value Date APTT 89.2* 03/13/2012 FIBRINOGEN 716* 03/12/2012 Dr. Hook is the attending of record for this patient encounter. Becca Moncada MD General Surgery, R2 Pager: [phone] [facility] Staff I saw and evaluated the patient. I agree with the findings and the plan of care as jannie hair in the resident s note. Left foot warm and well perfused. Patient pain-free. Will repe at CTA to see if there has been any thrombus progression. No urgent need for surgery on left leg at this point. Mirela Samano M.D. [facility] Vascular Surgery [address] [place] [address], [address] [address] Email: [email or web address], Irene Vega MD - 03/14/2012 3:52 AM PST General [...] at OSH. 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 She also had leukocytosis to 45 with a left shift, anemia, and thrombocytosis (platelets to 759). Her abdominal exam was not acute and she remained hemodynamically stable. Transferre d to [facility] for possible thrombectomy, initiated heparin [...] were obscured by overlying bowel gas. The cri-am-jibwgr left external iliac arteries appear patent with [...] arterial occlusion. Reported CT findings at [facility] are also concerning for diffuse intra-abdominal arterial [...] studies Irene Pradhan MD Internal Medicine, PGY-1 Carlos A Gonzalez MD - 03/13/2012 1:20 PM PST EGS TRANSFER NOTE PROGRESS NOTE: Hospital Day:1 Author; CARLOS A SALCIDO MD Attending Physician: oBwen Bergeron History: 56 y/o female with crohn's [...] 1 g 1 g Intravenous Q24H Bibiana C Tiave, PA-C 1 g at 1 05/13/11 2301 dextrose IV 25 mL 25 mL Intravenous PRN Bibiana C Tiave, PA-C esomeprazole (aka NEXIUM) IV 40 mg 40 mg Intravenous BID DARLING Jennings-C 40 mg at 03/13/12 0736 glucagon (aka GLUCAGEN) injection 1 mg 1 mg Intramuscular PRN Bibiana C Tiave, PA-C glucose chewable tablet 16 g 16 g Oral Q15MIN PRN Bibiana C Reeve, PA-C heparin bolus from continuous infusion (protocol) 2,800 Units 2,800 Units Intravenous NEEDED (BOLUS) Bibiana C Reeve, PA-C heparin bolus from continuous infusion (protocol) 5,600 Units 5,600 Units Intravenous NEEDED (BOLUS) Bibiana C Reeve, PA-C 5,600 Units at 03/13/12 0502 heparin in D5W IV infusion 25,000 units/250 mL (100 units/mL) 1-2,000 Units/hr Intrave nous CONTINUOUS DARLING Jennings-C 15.5 mL/hr at 03/13/12 1300 1,550 Units/hr at 1300 insulin lispro (aka HUMALOG) injection 1-16 Units 1-16 Units Subcutaneous Q6H Bibiana C Reeve, PA-C 1 Units at 03/13/12 0542 lactated ringers IV 75 mL/hr Intravenous CONTINUOUS Bibiana C Reeve, PA-C 75 mL/hr at 1 05/14/11 1300 75 mL/hr at 03/13/12 1300 menthol-zinc oxide (aka CALAZIME) topical paste Topical BID PRN Bibiana C Reeve, PA-C morphine injection 4-8 mg 4-8 mg Intravenous Q2H PRN Xin Max MD 4 mg at 1207 ondansetron (aka ZOFRAN) injection 4 mg 4 mg Intravenous Q12H PRN Bibiana Adams PA-C 4 mg at 03/12/12 2353 promethazine (aka PHENERGAN) injection 25 mg 25 mg Intravenous Q6H PRN Gayatri marcial PA-C 25 mg at 03/13/12 0736 Mirela Josue [...] LastCBG Intervention: Notified MD (Comment);Medication given (03/12/12 5146) CBC with diff last 72 hours (or 3 results) Recent Labs Basename 03/13/1234103/12/121917 WBC 42.5* 40.1* HB 7.9* 8.2* HCT 25.5* 26.0* PLT 606* 562* NEUTROPERC -- 97* BANDPCT -- 0 LYMPHPERC -- 0* MONOPERC -- 3 BASOPERC -- 0 EOSPERC -- 0* Chemistries: Last 72 Hours (or 3 results): Recent Labs Basename 03/13/12 03403/12/12200503/12/121917 NA 143 141 140 K 3.3* 3.1* [...] Becca Moncada MD General Surgery, R2 Pager: [phone] Vascular Staff I saw and evaluated the [...] at a later time. Mirela Samano M.D. [facility] Vascular Surgery [address], [address] [address] Email: [email or web address] Richie Goodman MD - 06/2011 11:15 AM PSTI was present and rounded with the BASKET MACHINE OPERATOR today. I interviewed and examined the patient. I reviewed the history, as documented today. I agree with the BASKET MACHINE OPERATOR's assessmen t and plan. Pt is [...] 75 Morphine IV PRN zofran PRN Labs: EPIC reviewed Significant Results K 3.3 Mg 2.8 [...] visceral and aortic thrombus transfer red from [place] last night with concerns for ischemic bowel. 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 No evidence of bowel ischemia, bowel thicken ing likely Crohn's flare. 1. Crohn's flare: GI consult. Consider transfer to medicine for crohn's management with va arular following 2. Multivessel occlusions/thrombii: vascular surgery following. [...] Her abdominal exam does not reveal peritonitis. Vas ular surgery recommended a heparin drip given her subtherapeutic INR. Hematology will be con sulted for her leukocytosis and declining platelet count in the setting of heparin therapy. Gastroenterology is making recommendations regarding acute management of her Crohn's disease . She will no longer require ICU care and she will transfer to the general medicine service. Jf Wiseman MD FACS electrical electronics engineer Division of Trauma, Critical Care, and Acute Care Surgery [phone] documented in this e ncounter Plan of [...] | + + + + + | [facility] | [address] | [place] [address] | | | JANELL SHARP | BERTRAM [...] [facility] | [address] | [place] [address] | | | SERVICES, CORE | PARK [...] | + + + + + | [facility] | [address] | [place] [address] | | | SERVICES, JANELL | BERTRAM [...] [facility] | [address] | [place] [address] | | | SERVICES, CORE | PARK [...] | + + + + + | [facility] | [address] | [place] [address] | | | SERVICES, CORE | BERTRAM [...] | + + + + + | [facility] | [address] | [place] [address] | | | SERVICES, CORE | PARK [...] 97.1 (H) | 26.0 - 36.0 | [facility] | | | | | sec. | [...] | + + + + + | [facility] | [address] | [place] [address] | | | SERVICES, CORE | PARK [...] 70.2 (H) | 26.0 - 36.0 | [facility] | | | | | sec. | [...] [facility] | [address] | [place] [address] | | | SERVICES, CORE | PARK [...] [facility] | [address] | [place] [address] | | | SERVICES, CORE | PARK [...] [facility] | [address] | [place] [address] | | | SERVICES, CORE | PARK [...] + + | [facility] | [address] | [place] [address] | | | SERVICES, CORE | PARK [...] | + + + + + | [facility] | [address] | [place] [address] | | | SERVICES, CORE | BERTRAM [...] | + + + + + | [facility] | [address] | [place] [address] | | | JANELL SHARP | BERTRAM [...] + | [facility] | [address] | [place] [address] | | | [place] | | | [...] + | [facility] | [address] | [place] [address] | | | [place] | | | [...] + | [facility] | [address] | [place] [address] | | | [place] | | | | + + + [...] | + + + + + | [facility] | [address] | [place] [address] | | | SERVICES, CORE | BERTRAM [...] [facility] | [address] | [place] [address] | | | SERVICES, CORE | PARK [...] | + + + + + | [facility] | [address] | [place] [address] | | | SERVICES, JANELL | BERTRAM [...] | + + + + + | [facility] | [address] | [place] [address] | | | SERVICES, CORE | [address] | | | + + + + + COLONOSCOPY (03/29/2012 12:00 AM PST) + + + | Narrative | Performed At | + + + | | | | | | + + + + + | Procedure Note | + + | Emeka Elias - 03/29/2012 4:36 PM PST | + + LUPE (03/29/2012 12:00 AM PST) + + + [...] soft | | | | | | cehavarria-red pieces of tissue | | | | [...] | + + + + + | [facility] | [address] | [place] [address] | | | PATHOLOGY | [address] [...] | + + + + + | [facility] | [address] | [place] [address] | | | SERVICES, CORE | B[address]TRAM [...] | + + + + + | [facility] | [address] | [place] [address] | | | SERVICES, CORE | BERTRAM [...] | [facility] | [address] | [place], [place] | | | [facility] | [address] | [address] | | | TESTS | | | [...] + | [facility] | [address] | [place] [address] | | | SERVICES, CORE | BERTRAM [...] [facility] | [address] | [place] [address] | | | SERVICES, CORE | PARK [...] | + + + + + | [facility] | [address] | [place] [address] | | | SERVICES, CORE | PARK [...] | [facility] | [address] | [place], [place] | | | [facility] | [address] | [address] | | | TESTS | | | [...] [facility] | [address] | [place] [address] | | | SERVICES, CORE | BERTRAM [...] [facility] | [address] | [place] [address] | | | SERVICES, CORE | BERTRAM [...] + + | [facility] | [address] | [place] [address] | | | SERVICES, CORE | BERTRAM [...] [facility] | [address] | [place] [address] | | | SERVICES, CORE | [address] | | | + + + + + X-RAY PORTABLE CHEST 1 VIEW (03/28/2012 6:28 AM PST) + + + + + + | Component | Value | Ref Range | Performed | Pathologist | | | | | At | Signature | + + + + + + | X-RAY | STUDY: ND CHEST 1 VIEW | | | | [...] + + + + | PRODUCT | [id number] | | [facility] | | | UNIT [...] + + + + | BLOOD | [id number] | | [facility] | | | PRODUCT [...] | + + + + + | [facility] | [address] | [place] [address] | | | PATHOLOGY | [address] [...] + + + + | PRODUCT | [id number] | | [facility] | | | UNIT [...] + + + + | BLOOD | 74529 | | [facility] | | | PRODUCT [...] | + + + + + | [facility] | [address] | [place] [address] | | | PATHOLOGY | [address] [...] (H) | 60 - 99 mg/dL | [facility] - | | | [...] + | [facility] | [address] | [place], [place] | | | [facility] | [address] | [address] | | | TESTS | | | [...] [facility] | [address] | [place] [address] | | | SERVICES, CORE | BERTRAM [...] view image for the detailed interpretation from [employer]. | CARDIOLOGY | + + + + + + + + | Performing | Address | City/State/Zipcode | Phone Number | | Organization | | | | + + + + + | [facility] | [address] | [place], [place] | | | CARDIOLOGY | [address] | [address] | | + + + + + [...] | + + + + + | [facility] | [address] | [place] [address] | | | SERVICES, CORE | [address] [...] + + + + | PRODUCT | [id number] | | [facility] | | | UNIT [...] + + + + | BLOOD | [id number] | | [facility] | | | PRODUCT [...] DEPARTMENT OF | [address] | [place] [address] | | | PATHOLOGY | [address] [...] + + + + | PRODUCT | [id number] | | [facility] | | | UNIT [...] + + + + | BLOOD | [id number] | | [facility] | | | PRODUCT [...] | + + + + + | [facility] | [address] | [place] [address] | | | PATHOLOGY | [address] [...] [facility] | [address] | [place] [address] | | | SERVICES, CORE | BERTRAM [...] + + | [facility] | [address] | [place] [address] | | | SERVICES, CORE | PARK [...] + + | [facility] | [address] | [place] [address] | | | SERVICES, CORE | PARK [...] | + + + + + | [facility] | [address] | [place] [address] | | | SERVICES, CORE | PARK [...] [facility] | [address] | [place] [address] | | | SERVICES, | [address] [...] | + + + + + | [facility] | [address] | [place] [address] | | | SERVICES, | [address] [...] + + + + | PRODUCT | [id number] | | [facility] | | | UNIT [...] + + + + | BLOOD | [id number] | | [facility] | | | PRODUCT [...] DEPARTMENT OF | [address] | [place] [address] | | | PATHOLOGY | [address] [...] + + + + | PRODUCT | [id number] | | [facility] | | | UNIT [...] + + + + | BLOOD | [id number] | | [facility] | | | PRODUCT [...] | + + + + + | [facility] | [address] | [place] [address] | | | PATHOLOGY | [address] [...] | + + + + + | [facility] | [address] | [place] [address] | | | SERVICES, CORE | BERTRAM [...] | + + + + + | [facility] | [address] | [place] [address] | | | SERVICES, CORE | BERTRAM [...] | + + + + + | [facility] | [address] | [place] [address] | | | SERVICES, CORE | BERTRAM [...] (H) | 0.90 - 1.20 INR | [facility] | | | | | | [facility] [...] [facility] | [address] | [place] [address] | | | SERVICES, CORE | PARK [...] | + + + + + | [facility] | [address] | [place] [address] | | | SERVICES, CORE | BERTRAM [...] | + + + + + | [facility] | [address] | [place] [address] | | | SERVICES, CORE | BERTRAM [...] [facility] | [address] | [place] [address] | | | SERVICES, CORE | PARK [...] [facility] | [address] | [place] [address] | | | ARON, JANELL | BERTRAM [...] [facility] | [address] | [place] [address] | | | SERVICES, CORE | PARK [...] | + + + + + | [facility] | [address] | [place] [address] | | | ARON, JANELL | BERTR[address] | | | [...] | + + + + + | [facility] | [address] | [place] [address] | | | ARON, JANELL | BERTRAM [...] | + + + + + | [facility] | [address] | [place] [address] | | | SERVICES, CORE | BERTRAM [...] (H) | 0.90 - 1.20 INR | [facility] | | | | [...] | + + + + + | [facility] | [address] | [place] [address] | | | SERVICES, CORE | PARK [...] | + + + + + | [facility] | [address] | [place] [address] | | | SERVICES, CORE | BERTRAM [...] [facility] | [address] | [place] [address] | | | SERVICES, CORE | PARK [...] oral, | | | | | | [id number] hrs | | | | | | [...] | | + +---------+ + + | [facility] DEPARTMENT OF | | [...] [facility] | [address] | [place] [address] | | | SERVICES, CORE | BERTRAM [...] [facility] | [address] | [place] [address] | | | SERVICES, CORE | PARK [...] | + + + + + | [facility] | [address] | [place] [address] | | | SERVICES, CORE | PARK [...] [facility] | [address] | [place] [address] | | | SERVICES, CORE | PARK [...] | + + + + + | [facility] | [address] | [place] [address] | | | SERVICES, CORE | BERTRAM [...] | | | | Final | | [place] | | | | CULTURE RESULT:< 10,000 [...] | + + + + + | [facility] | [address] | [place] [address] | | | [place] | | | | + + + + + TELMA FARAH ONLY (03/24/2012 12:39 AM PST) + + + [...] [facility] | [address] | [place] [address] | | | SERVICES, CORE | BERTRAM [...] | + + + + + | [facility] | [address] | [place] [address] | | | SERVICES, CORE | BERTRAM [...] | + + + + + | [facility] | [address] | [place] [address] | | | SERVICES, CORE | [address] | | | + + + + + CULTURE, BLOOD BACTI & YEAST [facility] (03/23/2012 11:22 PM PST) + + + [...] Subculture, No | | | | | 03/25/2012 0014. | growth to date. | | | + + + + + + + + | Specimen | + + | Blood - PICC line | + + + + + + + | Performing | Address | City/State/Zipcode | Phone Number | | Organization | | | | + + + + + | [facility] | [address] | [place] [address] | | | JANELL SHARP | BERTRAM [...] by | | | | | | RACEHL MESSER ([id number]) on | | | | | | 03/25/2012 8:07:08 AM | | | | + + + + + + + + | Specimen | + + | | + + + + + | Narrative | Performed At | + + + | Please click | [facility] | | on view image for the detailed interpretation from Fotolog results. | CARDIOLOGY | + + + + + + + + | Performing | Address | City/State/Zipcode | Phone Number | | Organization | | | | + + + + + | [facility] | [address] | [place], [place] | | | CARDIOLOGY | [address] | [address] | | + + + + + [...] | + + + + + | [facility] | [address] | [place] [address] | | | SERVICES, CORE | PARK [...] | + + + + + | [facility] | [address] | [place] [address] | | | SERVICES, CORE | PARK [...] | + + + + + | [facility] | [address] | [place] [address] | | | SERVICES, CORE | PARK [...] [facility] | [address] | [place] [address] | | | SERVICES, CORE | PARK [...] [facility] | | | | | | [facility] | | | | | | [place], [place] [address] | | | | | | [phone]. | | | | | | Kaitlin parker, | | | | | | MD, Lab. Director | | | | + + + + + + + + | Specimen | + + | Urine - Urine | + + + + + + + | Performing | Address | City/State/Zipcode | Phone Number | | Organization | | | | + + + + + | [facility] | [address] | [place], [place] | | | [facility] | | [id number] | | + + + + + [...] [facility] | [address] | [place] [address] | | | SERVICES, JANELL | BERTRAM [...] Moreno, | | | | | | FortinoAuthor: Libby | | | | | | Fortino Moreno I have | | | | | [...] + CULTURE, BLOOD BACTI & YEAST [facility] (03/22/2012 7:09 PM PST) + + + [...] | + + + + + | [facility] | [address] | [place] [address] | | | SERVICES, CORE | [address] | | | + + + + + CULTURE, BLOOD BACTI & YEAST [facility] (03/22/2012 7:08 PM PST) + + + [...] | + + + + + | [facility] | [address] | [place] [address] | | | SERVICES, CORE | [address] | | | + + + + + 12 LEAD ECG (03/22/2012 2:58 PM PST) + + + + + + | Component | Value | Ref Range | Performed | Pathologist | | | | | At | Signature | + + + + + + | VENTRICULAR | 87 | BPM | [facility] | | | RATE | | [...] | | | | | XIN GARZON (6173) | | | | | | on 03/22/2012 4:25:06 PM | | | | + + + + + + + + | Specimen | + + | | + + + + + | Narrative | Performed At | + + + | Please click | [facility] | | on view image for the detailed interpretation from Fotolog results. | CARDIOLOGY | + + + + + + + + | Performing | Address | City/State/Zipcode | Phone Number | | Organization | | | | + + + + + | [facility] | [address] | [place], [place] | | | CARDIOLOGY | [address] | [address] | | + + + + + [...] + | [facility] | [address] | [place], [place] | | | [facility] | [address] | [address] | | | TESTS | | | [...] | [facility] | [address] | [place], [place] | | | H[place], POINT OF CARE | [address] | [address] | | | TESTS | | | [...] [facility] | [address] | [place] [id number] | | | SERVICES, CORE | BERTRAM [...] [facility] | [address] | [place] [address] | | | SERVICES, CORE | BERTRAM [...] [facility] | [address] | [place] [address] | | | SERVICES, CORE | PARK [...] + + | [facility] | [address] | [place] [address] | | | SERVICES, CORE | BERTRAM [...] | + + + + + | [facility] | [address] | [place] [address] | | | SERVICES, CORE | BERTRAM [...] (H) | 60 - 99 mg/dL | [facility] - | | | [...] + | [facility] | [address] | [place], [place] | | | [facility] | [address] | [address] | | | TESTS | | | [...] | + + + + + | [facility] | [address] | [place] [address] | | | SERVICES, CORE | BERTRAM [...] (H) | 60 - 99 mg/dL | [facility] - | | | [...] + | [facility] | [address] | [place], [place] | | | [facility] | [facility] | [address] | | | TESTS | | | [...] view image for the detailed interpretation from Fotolog results. | CARDIOLOGY | + + + + + + + + | Performing | Address | City/State/Zipcode | Phone Number | | Organization | | | | + + + + + | [facility] | [address] | [place], [place] | | | CARDIOLOGY | [address] | [address] | | + + + + + [...] | [facility] | [address] | [place], [place] | | | [facility] | [address] | [address] | | | TESTS | | | [...] | | | | signed / Amalia Medina | | | | Jorge Preliminary / [...] | + + + + + | [facility] | [address] | [place] [address] | | | SERVICES, CORE | BERTRAM [...] | + + + + + | [facility] | [address] | [place] [address] | | | SERVICES, CORE | BERTRAM [...] | + + + + + | [facility] | [address] | [place] [address] | | | SERVICES, CORE | BERTRAM [...] | + + + + + | [facility] | [address] | [place] [address] | | | SERVICES, JANELL | BERTRAM [...] | + + + + + | [facility] | [address] | [place] [address] | | | JANELL SHARP | BERTRAM [...] GARCIA | | | | | | ([id number]) on 03/22/2012 | | | | | | 12:47:28 PM | | | | + + + + + + + + | Specimen | + + | | + + + + + | Narrative | Performed At | + + + | Please click | [facility] | | on view image for the detailed interpretation from Fotolog results. | CARDIOLOGY | + + + + + + + + | Performing | Address | City/State/Zipcode | Phone Number | | Organization | | | | + + + + + | [facility] | [address] | [place], [place] | | | CARDIOLOGY | [facility] | [address] | | + + + + + [...] Moreno, | | | | | | FortinoAuthor: Omi | | | | | | [...] | + + + + + | [facility] | [address] | [place] [address] | | | SERVICES, CORE | BERTRAM [...] | + + + + + | [facility] | [address] | [place] [address] | | | JANELL SHARP | BERTRAM [...] 98 | 60 - 99 mg/dL | [facility] - | | | [...] + | [facility] | [address] | [place], [place] | | | [facility] | [address] | [address] | | | TESTS | | | [...] + + + | Please click | [facility] | | on view image for the detailed interpretation from Fotolog results. | CARDIOLOGY | + + + + + + + + | Performing | Address | City/State/Zipcode | Phone Number | | Organization | | | | + + + + + | [facility] | [address] | [place], [place] | | | CARDIOLOGY | [address] | [address] | | + + + + + [...] | [facility] | [address] | [place], [place] | | | [facility] | [address] | [address] | | | TESTS | | | [...] + | [facility] | [address] | [place], [place] | | | [facility] | [address] | [address] | | | TESTS | | | | + + + + + X-RAY PORTABLE CHEST 1 VIEW (03/20/2012 10:13 AM PST) + + + + + + | Component | Value | Ref Range | Performed | Pathologist | | | | | At | Signature | + + + + + + | X-RAY | STUDY: ND CHEST 1 VIEW | | | | [...] | | | | | Fortino CruzAuthor: aDvi | | | | | | Fortino [...] | | | LABORATORY | | | ARON, JANELL | + + + + + + + + | Performing | Address | City/State/Zipcode | Phone Number | | Organization | | | | + + + + + | [facility] | [address] | [place] [address] | | | SERVICES, JANELL | BERTRAM [...] + + | Performing | Address | City/State/[facility] Service Unitcode | Phone Number | | Organization | | | | + + + + + | [facility] | [address] | [place] [address] | | | ARON, [facility] | [address] | | | + [...] | + + + + + | [facility] | [address] | [place] [address] | | | JANELL SHARP | BERTRAM [...] | + + + + + | [facility] | [address] | [place] [address] | | | SERVICES, CORE | BERTRAM [...] (H) | 60 - 99 mg/dL | [facility] - | | | [...] + + + | [facility] | [address] | [place], [place] | | | [facility] | [address] | [address] | | | TESTS | | | [...] | [facility] | [address] | [place], [place] | | | [facility] | [address] | [address] | | | TESTS | | | [...] | + + + + + | [facility] | [address] | [place] [address] | | | SERVICES, JANELL | BERTRAM [...] | + + + + + | [facility] | [address] | [place] [address] | | | SERVICES, CORE | BERTRAM [...] (H) | 60 - 99 mg/dL | [facility] - | | | [...] + + | [facility] | [address] | [place], [place] | | | [facility] | [address] | [address] | | | TESTS | | | [...] view image for the detailed interpretation from [employer] results. | CARDIOLOGY | + + + + + + + + | Performing | Address | City/State/Zipcode | Phone Number | | Organization | | | | + + + + + | [facility] | [address] | [place], [place] | | | CARDIOLOGY | [address] | [address] | | + + + + + [...] | [facility] | [address] | [place], [place] | | | [facility] | [address] | [address] | | | TESTS | | | [...] Kaya | | | | | | Lizz, I have | | | | | [...] (H) | 60 - 99 mg/dL | [facility] - | | | [...] | [facility] | [address] | [place], [place] | | | [facility] | [address] | [address] | | | TESTS | | | [...] [facility] | [address] | [place] [address] | | | SERVICES, CORE | PARK [...] | + + + + + | [facility] | [address] | [place] [address] | | | SERVICES, CORE | [address] [...] | + + + + + | [facility] | [address] | [place] [address] | | | SERVICES, CORE | BERTRAM [...] | + + + + + | [facility] | [address] | [place] [address] | | | SERVICES, CORE | BERTRAM [...] | | | | Final | | [place] | | | | CULTURE RESULT:No growth [...] + | [facility] | [address] | [place] [address] | | | [place] | | | | + + + + + UA ZAFAREDD ONLY (03/19/2012 1:24 AM PST) + + [...] [facility] | [address] | [place] [address] | | | SERVICES, CORE | [address] [...] [facility] | [address] | [place] [address] | | | SERVICES, CORE | [address] [...] + + | [facility] | [address] | [place] [address] | | | ARON, JANELL | [address] | | | + + + + + CULTURE, BLOOD BACTI & YEAST [facility] (03/19/2012 1:10 AM PST) + + + [...] | + + + + + | [facility] | [address] | [place] [address] | | | SERVICES, CORE | BERTRAM [...] | + + + + + | [facility] | [address] | [place] [address] | | | SERVICES, CORE | BERTRAM [...] (H) | 60 - 99 mg/dL | [facility] - | | | [...] + | [facility] | [address] | [place], [place] | | | [facility] | [address] | [address] | | | TESTS | | | [...] | + + + + + | [facility] | [address] | [place] [address] | | | SERVICES, JANELL | BERTRAM [...] [facility] | [address] | [place], [place] | | | [facility] | [facility] | [address] | | | TESTS | | | [...] + + | [facility] | [address] | [place] [address] | | | SERVICES, CORE | PARK [...] | + + + + + | [facility] | [address] | [place] [address] | | | SERVICES, CORE | BERTRAM [...] | [facility] | [address] | [place], [place] | | | [facility] | [address] | [address] | | | TESTS | | | | + + + + + OPERATION RECORD (03/18/2012 11:22 AM PST) + + | Transcriptions | + + | Mirela Salgado MD - 03/18/2012 8:38 AM [facility] Date: 03/17/2012ttending | | Surgeon: Mierla Salgado M.D.Aircraft Power Plant Assembler(s): Sandoval | | Bennett Galvez M.D.Preoperative Diagnosis(es):Embolus, [...] The heparinwas not reversed. A number 7 Romoe-Blackwood drain was | | placed in the [...] | | tolerated the procedure well.MIRELA SALGADO, [facility]woodsess[facility] SurgeryCATA[facility] / [id number] / | | [id number] / [id number] / T: 03/17/2012 | |was no pulse. 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 | | | |GLM / HS | |[id number] / [id number] / [id number] / | | | | | + [...] [facility] | [address] | [place] [address] | | | SERVICES, CORE | PARK [...] [facility] | [address] | [place] [address] | | | SERVICES, CORE | PARK [...] | + + + + + | [facility] | [address] | [place] [address] | | | SERVICES, CORE | PARK [...] | + + + + + | [facility] | [address] | [place] [address] | | | SERVICES, CORE | BERTRAM [...] | + + + + + | [facility] | [address] | [place] [address] | | | SERVICES, CORE | BERTRAM [...] | + + + + + | [facility] | [address] | [place] [address] | | | SERVICES, JANELL | BERTRAM [...] | + + + + + | [facility] | [address] | [place] [address] | | | SERVICES, JANELL | PARK [...] | [facility] | [address] | [place], [place] | | | [facility] | [facility] | [address] | | | TESTS | | | [...] (H) | 60 - 99 mg/dL | [facility] - | | | [...] | [facility] | [address] | [place], [place] | | | [facility] | [address] | [address] | | | TESTS | | | [...] | | | GLUCOSE, | | | [facility] | | | POC | | | [...] + | [facility] | [address] | [place], [place] | | | [facility] | [facility] | [address] | | | TESTS | | | [...] | + + + + + | [facility] | [address] | [place] [address] | | | SERVICES, CORE | PARK [...] + + | Performing | Address | City/State/[facility] Service Unitcode | Phone Number | | Organization | | | | + + + + + | [facility] | [address] | [place] [address] | | | JANELL SHARP | [address] [...] | + + + + + | [facility] | [address] | [place] [address] | | | JANELL SHARP | [address]ERTRAM [...] | + + + + + | [facility] | [address] | [place] [address] | | | SERVICES, CORE | BERTRAM [...] (H) | 60 - 99 mg/dL | [facility] - | | | [...] + | [facility] | [address] | [place], [place] | | | [facility] | [address] | [address] | | | TESTS | | | [...] [facility] | [address] | [place] [address] | | | SERVICES, | [address] [...] + + | [facility] | [address] | [place] [address] | | | SERVICES, | [address] [...] | + + + + + | [facility] | [address] | [place] [address] | | | SERVICES, CORE | BERTRAM [...] | [facility] | [address] | [place], [place] | | | [facility] | [address] | [address] | | | TESTS | | | [...] | | + +---------+ + + | [facility] DEPARTMENT OF | | [...] + | [facility] | [address] | [place], [place] | | | [facility] | [address] | [address] | | | TESTS | | | [...] | [facility] | [address] | [place], [place] | | | [facility] | [address] | [address] | | | TESTS | | | [...] | + + + + + | [facility] | [address] | [place] [address] | | | JANELL SHARP | [address] | | | + + + + + CAPILLARY BLOOD GLUCOSE (NO CHG), POC (03/16/2012 7:34 AM PST) + +---------+ + + + | Component | Value | Ref Range | Performed | Pathologist | | | | | At | Signature | + +---------+ + + + | BLOOD | 115 (H) | 60 - 99 mg/dL | [facility] - | | | [...] | [facility] | [address] | [place], [place] | | | [facility] | [address] | [address] | | | TESTS | | | [...] | + + + + + | [facility] | [address] | [place] [address] | | | SERVICES, CORE | [address]ARK [...] | + + + + + | [facility] | [address] | [place] [address] | | | SERVICES, CORE | BERTRAM [...] | + + + + + | [facility] | [address] | [place] [address] | | | SERVICES, CORE | [address]ARK [...] [facility] | [address] | [place] [address] | | | SERVICES, CORE | PARK [...] + | [facility] | [address] | [place], [place] | | | [facility] | [address] | [address] | | | TESTS | | | [...] + | [facility] | [address] | [place], [place] | | | [facility] | [address] | [address] | | | TESTS | | | [...] | | | | | | the Hal[employer] system. | | | | | | [...] | | + +---------+ + + | [facility] DEPARTMENT OF | | [...] Kirstie | | | | | | Herod | | | | + + + [...] + | [facility] | [address] | [place], [place] | | | [facility] | [address] | [address] | | | TESTS | | | [...] | [facility] | [address] | [place], [place] | | | [facility] | [address] | [address] | | | TESTS | | | [...] [facility] | [address] | [place] [address] | | | SERVICES, SPECIAL | PARK [...] [facility] | [address] | [place] [address] | | | SERVICES, SPECIAL | PARK [...] | + + + + + | [facility] | [address] | [place] [address] | | | SERVICES, SPECIAL | [address] [...] [facility] | [address] | [place] [address] | | | SERVICES, SPECIAL | PARK [...] [facility] | [address] | [place] [address] | | | SERVICES, CORE | PARK [...] [facility] | [address] | [place] [address] | | | SERVICES, CORE | PARK [...] | + + + + + | [facility] | [address] | [place] [address] | | | SERVICES, CORE | PARK [...] [facility] | [address] | [place] [address] | | | JANELL SHARP | [address] | | | + + + + + TRANSTHORACIC ECHOCARDIOGRAM, ADULT (03/15/2012 12:00 AM PST) + + + | Narrative | Performed At | + + + | | | | | | + + + + + | Procedure Note | + + | Curt Faculty - 03/15/2012 6:06 PM PST | [...] | [facility] | [address] | [place], [place] | | | [facility] | [facility] | [address] | | | TESTS | | | [...] | + + + + + | [facility] | [address] | [place] [address] | | | JANELL SHARP | [address] [...] (H) | 60 - 99 mg/dL | [facility] - | | | [...] | [facility] | [address] | [place], [place] | | | [facility] | [facility] | [address] | | | TESTS | | | [...] + | [facility] | [address] | [place], [place] | | | [facility] | [address] | [address] | | | TESTS | | | [...] HOOK, | | | | | | M.Nena. I have personally | | | | [...] | | + +---------+ + + | [facility] DEPARTMENT OF | | [...] + | [facility] | [address] | [place], [place] | | | [facility] | [address] | [address] | | | TESTS | | | [...] + + + + | PRODUCT | [id number] | | [facility] | | | UNIT [...] + + + + | BLOOD | 91401 | | [facility] | | | PRODUCT [...] DEPARTMENT OF | [address] | [place] [address] | | | PATHOLOGY | [address] [...] + + + + | PRODUCT | [id number] | | [facility] | | | UNIT [...] + + + + | BLOOD | [id number] | | [facility] | | | PRODUCT [...] | + + + + + | [facility] | [address] | [place] [address] | | | PATHOLOGY | [address] [...] | + + + + + | [facility] | [address] | [place] [address] | | | SERVICES, CORE | B[address]TRAM [...] | [facility] | [address] | [place], [place] | | | [facility] | [address] | [address] | | | TESTS | | | [...] + | [facility] | [address] | [place], [place] | | | [facility] | [address] | [address] | | | TESTS | | | [...] [facility] | [address] | [place] [address] | | | ARON, JANELL | [address] [...] [facility] | [address] | [place] [address] | | | SERVICES, CORE | PARK [...] | + + + + + | [facility] | [address] [address] | [place] [address] | | | ARON, CORE | PARK [...] | | If supplementation does | | [place] | | | | not correct consider [...] if | | | | | | [id number] >400: | | | | | | [...] + | [facility] | [address] | [place] [address] | | | [place] | | | | + + + [...] [facility] | [address] | [place] [address] | | | SERVICES, CORE | BERTRAM [...] | + + + + + | [facility] | [address] [facility] [address] | [place] [address] | | | SERVICES, CORE | BERTRAM [...] | + + + + + | [facility] | [address] | [place] [address] | | | ARON, JANELL | BERTRAM [...] - | | | | | | [place] | | + + + + + + + + | Specimen | + + | Blood - Blood | + + + + + + + | Performing | Address | City/State/Zipcode | Phone Number | | Organization | | | | + + + + + | [facility] | [address] | [place] [address] | | | [place] | | | [...] + | [facility] | [address] | [place], [place] | | | [facility] | [facility] | [address] | | | TESTS | | | [...] | + + + + + | [facility] | [address] | [place] [address] | | | JANELL SHARP | BERTRAM [...] + + | [facility] | [address] | [place] [address] | | | JANELL SHARP | BERTRAM [...] | [facility] | [address] | [place], [place] | | | [facility]ARE | [address] | [address] | | | TESTS | | | [...] | + + + + + | [facility] | [address] | [place] [address] | | | SERVICES, CORE | BERTRAM [...] gas. | | | | | | [id number]-[id number] left | | | | | | [...] HOOK, | | | | | | Fortino I have personally | | | | [...] | | + +---------+ + + | [facility] DEPARTMENT OF | | | | | RADIOLOGY | | | | + +---------+ + + [facility] DUPLEX LOWER EXTREMITY BILATERAL COMPLETE [...] + | [facility] | [address] | [place], [place] | | | [facility]SC[facility] POINT [facility] CARE | [address] | [address] | | | TESTS | | | [...] % | [facility] | | | | [employer],[address] | | REG UNIV | | | | Jarett Card, [facility] | | [facility] - [facility] | | | | [phone] | | | | | | [phone]. | | | | | | Kaitlin parker, | | | | | | , [...] [facility] | [address] | [place], [place] | | | UNIV PTH - [facility] | | [id number] | | + + + + + [...] + + | [facility] | [address] | [place] [address] | | | SERVICES, CORE | BERTRAM [...] | + + + + + | [facility] | [address] | [place] [address] | | | SERVICES, CORE | PARK [...] (H) | 60 - 99 mg/dL | [facility] - | | | [...] + | [facility] | [address] | [place], [place] | | | OSCAR POINT OF CARE | [address] | [address] | | | TESTS | | | [...] | + + + + + | [facility] | [address] | [place] [address] | | | JANELL SHARP | BERTRAM [...] | + + + + + | [facility] | [address] | [place] [address] | | | JANELL SHARP | BERTRAM [...] (H) | 60 - 99 mg/dL | [facility] - | | | [...] | [facility] | [address] | [place], [place] | | | [facility] CARE | [address] | [address] | | | TESTS | | | [...] [facility] | [address] | [place] [address] | | | SERVICES, CORE | PARK [...] + + | [facility] | [address] | [place] [address] | | | SERVICES, CORE | PARK [...] [facility] | [address] | [place] [address] | | | SERVICES, CORE | PARK [...] | + + + + + | [facility] | [address] | [place] [address] | | | SERVICES, CORE | BERTRAM GRANT | | | + + + + + MAGNESIUM, PLASMA (03/13/2012 3:42 AM PST) + +---------+ + + + | Component | Value | Ref Range | Performed | Pathologist | | | | | At | Signature | + +---------+ + + + | MAGNESIUM,P | 2.8 (H) | 1.8 - 2.5 mg/dL | [facility] [...] [facility] | [address] | [place] [address] | | | SERVICES, CORE | PARK [...] | + + + + + | [facility] | [address] | [place] [address] | | | SERVICES, CORE | PARK [...] | | | | Final | | [facility] | | | | CULTURE RESULT:No growth [...] + | [facility] | [address] | [place] [address] | | | [place] | | | [...] | | | Final CULTURE | | [place] | | | | RESULT:Salmonella, | | [...] + | [facility] | [address] | [place] [address] | | | [place] | | | [...] | + + + + + | [facility] | [address] | [place] [address] | | | SERVICES, CORE | BERTRAM [...] (H) | 60 - 99 mg/dL | [facility] - | | | GLUCOSE, | | [...] + | [facility] | [address] | [place], [place] | | | [facility] | [address] | [address] | | | TESTS | | | [...] view image for the detailed interpretation from [employer] results. | CARDIOLOGY | + + + + + + + + | Performing | Address | City/State/Zipcode | Phone Number | | Organization | | | | + + + + + | [facility] | [address] | [place], [place] | | | CARDIOLOGY | [address] | [address] | | + + + + + [...] Nathan | | | | | | Fortnio RogersAuthor: | | | | | | [...] | | | | | isaías / Nathan | | | | | [...] CULTURE, BLOOD BACTI & YEAST [facility] (03/12/2012 9:57 PM PST) + + + [...] + + | [facility] | [address] | [place] [address] | | | SERVICES, CORE | [address] | | | + + + + + CULTURE, BLOOD BACTI & YEAST [facility] (03/12/2012 9:50 PM PST) + + + [...] | + + + + + | [facility] | [address] | [place] [address] | | | SERVICES, CORE | BERTRAM [...] + + | [facility] | [address] | [place] [address] | | | SERVICES, CORE | PARK [...] [facility] | [address] | [place] [address] | | | ARON, JANELL | BERTRAM [...] + | [facility] | [address] | [place], [place] | | | [facility] | [address] | [address] | | | TESTS | | | [...] [facility] | [address] | [place] [address] | | | SERVICES, CORE | BERTRAM [...] [facility] | [address] | [place] [address] | | | SERVICES, CORE | PARK [...] [facility] | [address] | [place] [address] | | | SERVICES, | [address] [...] | + + + + + | [facility] | [address] | [place] [address] | | | ARON, | BERTRAM GRANT | | | | TRANSFUSION MEDICINE | [...] | + + + + + | [facility] | [address] | [place] [address] | | | SERVICES, JANELL | PARK [...] + + | [facility] | [address] | [place] [address] | | | SERVICES, CORE | PARK [...] | + + + + + | [facility] | [address] | [place] [address] | | | SERVICES, JANELL | BERTRAM [...] | Procedure Note | + + | Curt Faculty - 03/28/2012 2:29 PM PST | [...] + | Diagnosis | + + | 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
--- OUTSIDE RECORDS SUMMARY | ~2019-11-05 | XMS | Encounter Summary ---
Demographics + + + | Address | [address] | | | [place] [address] | + + + | Home Phone [...] Team Providers + +------+ + | Care Personal Consultant Name | Role | Phone | [...] + + | 03/27/ | Office | [facility] | Severo, | Rectovaginal fistula | | 2019 | Visit | GENERAL SURGERY [address] | [address] | (Primary Dx) | | | | [facility] [address] | [facility] [address] | | | | | [place], [place] | [place] [address] | | | | | [address] | [phone] | | | | | [phone] | | | +--------+---------+ + + + [...]
--- OUTSIDE RECORDS SUMMARY | ~2019-11-05 | XMS | Encounter Summary ---
Demographics + + + | Address | [address] | | | [place] [address] | + + + | Home Phone | | + + + | Preferred Language | Unknown | + + + | Marital Status | | + + + | Confucianism Affiliation | Unknown | + + + | Race | Unknown | + + + | Ethnic Group | Unknown | + + + Author + + + | Author | [facility] | | | and [place] | + + + | Organization | [facility] | | [...] Providers + +------+ + | Care Roll Up Helper Name | Role | Phone | + +------+ + PCP | Unavailable | + +------+ + Encounter Details +--------+ + + + + | Date | Type | Department | Care Team | Description | +--------+ + + + + | 02/11/ | Hospital | [facility] | Veena Tobar, | | | 2017 - | Encounter | [facility] | MD [address] | | | | | CARE FLO[address] | [place] [address] | | | 02/15/ | | [address] | [phone] | | | 2017 | | [place], [place] | | | | | | [address] | | | | | | [phone] | | | +--------+ + + + [...] + + + | Blood Pressure | 131/61 | 02/15/2017 1:08 PM | | | | | PST | | + + + + + | Pulse | 64 | 02/15/2017 1:08 PM | | | | | PST | | + + + + + | Temperature | 36.7 C (98.1 F) | 02/15/2017 1:08 PM | | | | | PST | | + + + + + | Respiratory Rate | 18 | 02/15/2017 1:08 PM | | | | | PST | | + + + + + | Oxygen Saturation | - | - | | + + + + + | Inhaled Oxygen | - | - | | | Concentration | | | | + + + + + | Weight | 78 kg (171 lb 15.4 | 02/15/2017 1:08 PM | | | | oz) | PST | | + + + + + | Height | 172.7 cm (5' 8") | 02/15/2017 1:08 PM | | | | | PST | | + + + + + | Body Mass Index | 26.15 | 02/15/2017 1:08 PM | | | | | PST | | + + + + + documented in this encounter Discharge Summaries Aguila Bernard DO - 02/15/2017 10:29 AM PST Discharge Summaries by Aguila Bernard DO at 02/15/17 1029 Author: Aguila Bernard DO Service: Hospitalist Author Type: Physician Filed: 02/15/17 1032 Date of Service: 02/15/17 1029 Status: Signed Garbage Pick Up Worker: Aguila Bernard DO (Physician) [facility] Service: Hospitalist Discharge Summary Date of Admission: 02/11/2017 Date of Discharge: 02/15/2017 Discharge Provider: Aguila Bernard DO Treatment Team: Consulting Physician: Erin Turner DO Admitting Provider: Veena Tobar MD Discharge Diagnoses: Principal Problem (Resolved): Sepsis(995.91) due to UTI Active Problems: Crohn's disease (HCC) GERD (gastroesophageal reflux disease) HTN (hypertension) Chronic anticoagulation Hypertension Current chronic use of systemic steroids Neuropathy Encephalopathy in sepsis Immunosuppressed status (HCC) Admitted for UTI with sepsis Improved with tx levofloxacin + IV fluid. Cultures obtained at [facility] showed E coli s usceptible to levofloxacin. ID was consulting and recommended continuing that abx orally thr ough Feb 25. The UTI was thought to be related to Crohn's disease with rectovaginal fistulas Patient needs to f/u with Dr Bocanegra for continuity of care / further management. Continue prednisone, Humira, outpatient management also per Dr Krishna. Continue TPN as a "bowel rest" strategy per Dr Krishna. She initially had Encephalopathy Attributed to sepsis, now resolved with above tx. She has Chronic diarrhea Tincture of opium. She has Hx DVT, mesenteric vein thrombosis Warfarin was continued, INR continued to be subtherapeutic, she will need ongoing outpatien t follow up / management. DISCHARGE EXAM Vital Signs: BP 124/57 (BP Location: Right upper arm) | Pulse 65 | Temp 97.8 F (36.6 C) (Oral) | Resp 18 | Ht 1.727 m (5' 8") | Wt 78 kg (171 lb 15.3 oz) | SpO2 93% | BMI 26.15 kg/m Physical Exam NAD AOx3 HENT - MMM, conjunctivae normal Heart - RRR no murmur, no JVD, normal radial / DP pulses B/L Lungs - CTAB/L no WRR, good effort Abd - SNTND +BSx4 Ext - Good ROM no tenderness or edema Skin - dry no erythema Disposition: Home Condition: Stable Code Status: DNR/DNI Follow up: Alireza Krishna MD [address], [address] [id number] Enrique Bocanegra MD [address] [facility] [place] [facility] [address] Medication List START taking these medications levofloxacin 500 MG tablet QTY: 9 tablet Refills: 0 Commonly known as: LEVAQUIN Take 1 tablet by mouth daily for 9 days. Start taking on: 02/16/2017 CONTINUE taking these medications fluconazole 150 MG tablet Refills: 0 Commonly known as: DIFLUCAN gabapentin 300 MG capsule Refills: 0 Commonly known as: NEURONTIN lactobacillus granules QTY: 30 each Refills: 0 Take 1 packet by mouth 2 (two) times daily. LORazepam 0.5 MG tablet Refills: 0 Commonly known as: ATIVAN metoprolol 25 MG tablet Refills: 0 Commonly known as: LOPRESSOR Take 2 tablets by mouth 2 (two) times daily. omeprazole 40 MG capsule Refills: 0 Commonly known as: PRILOSEC potassium chloride 10 MEQ CR capsule Refills: 0 Commonly known as: MICRO-K predniSONE 10 MG tablet Refills: 0 Commonly known as: DELTASONE promethazine 25 MG tablet Refills: 0 Commonly known as: PHENERGAN warfarin 6 MG tablet Refills: 0 Commonly known as: COUMADIN You might also be taking other medications not listed above. If you have questions about an y of your other medications, talk to the person who prescribed them or your Primary Care Pro vider. STOP taking these medications furosemide 20 MG tablet Commonly known as: LASIX Where to Get Your Medications You can get these medications from any pharmacy Bring a paper prescription for each of these medications levofloxacin 500 MG tablet Discharge took ~35 minutes, to include final examination, discussion of admission, and prep aration of prescriptions, instructions for on-going care, follow-up and documentation of dis charge summary. Aguila Bernard DO 02/15/2017 10:30 AM documented in this enc ounter Medications at Time of Discharge + + [...] Progress Notes Conversion Transaction, Provider Unknown - 02/15/2017 12:47 PM PSTFormatting of this note m ight be different from the original. Nurse Progress Note by Gayatri Carrasquillo RN at 02/15/17 1247 Author: Gayatri Carrasquillo RN Service: (none) Author Type: Registered Nurse Filed: 02/15/17 1247 Date of Service: 02/15/17 1247 Status: Signed Garbage Pick Up Worker: Gayatri Carrasquillo RN (Registered Nurse) Patient d/c instructions reviewed with patient. [facility] [place] per pt request. Awaiting [facility] to meet with patient prior to d/c. Spouse to provide trans portation. Gayatri Carrasquillo RN ICongenaro roshan Transaction, Provider Unknown - 02/15/2017 11:03 AM PST Case Management by Morgan Richards RN at 02/15/17 1103 Author: Morgan Richards RN Service: (none) Author Type: Registered Nurse Filed: 02/15/17 1108 Date of Service: 02/15/17 1103 Status: Signed Garbage Pick Up Worker: Morgan Richards RN (Registered Nurse) 02/15/17 1100 Discharge Planning Evaluation Admitting Diagnosis Sepsis due to UTI Anticipated Disposition Facility Type Home;Home infusion Medicare Important Message (KAMRYN) Given Home Infusion & Tube/Enteral Feedings [facility] Pt. Signed KAMRYN, I notified Anthony (spouse) about discharge and he will transport. Rhianna from [facility] has been notified and will be here for discharge. onver roshan Transaction, Provider Unknown - 02/15/2017 8:09 AM PST Therapy Progress Note by Giulia Albert PT at 02/15/17 0809 Author: Giulia Roosevelt, PT Service: (none) Author Type: Physical Therapist Filed: 02/15/17 1212 Date of Service: 02/15/17 0809 Status: Addendum Garbage Pick Up Worker: Giulia Albert PT (Physical Therapist) Related Notes: Original Note by Giulia Albert PT (Physical Therapist) filed at 02/15/17 1 211 02/15/17 0809 PT Last Visit PT Received On 02/15/17 Reason for Treatment Deconditioning (sepsis) Requires PT Follow Up Yes Follow up PT Only? Yes (assessment of ambulation) PT Eval/Reassessment Date 02/15/17 Assistance Required 1 person Home Environment Type of Home Home one story Home Exterior Layout 1-3 steps (1 HEATHER) Home Interior Layout Lives on main level with bedroom/bathroom Bathroom Shower/Tub Tub/shower unit Bathroom Toilet Raised Bathroom Equipment Shower chair;Hand-held shower head;Grab bars at toilet;Commode / 3-in-1 Bathroom Accessibility Accessible via walker Home Equipment Cane single point;Walker front wheeled (bedside commode) Prior Function Level of [place] Independent with functional mobility;Independent with ADLs;Assist wi th IADLs;Household distance Falls in Past Year No Lives With Spouse Employment Retired for disability Leisure Hobbies-yes (Comment) (movies, crossword puzzles) Comments Pt reports that in the past few months she hasn't been ambulating much in the comm unity, and instead her spouse will buy groceries and do tasks that require longer distance a mbulation. Pt reports that she has been walking at most small distances within her home, for instance from the living room to the bathroom. RLE Assessment RLE Assessment X (strength grossly 3+/5) LLE Assessment LLE Assessment X (strength grossly 3+/5) Cognition Overall Cognitive Status WFL Orientation Level Oriented Oriented x 4 Sensation Light Touch Deficit apparent Proprioception Proprioception No apparent deficit Vision-Basic Assessment Current Vision Reading glasses Assessment of Patient Status Assessment of Patient Status Decreased LE strength;Decreased functional mobility;Decreased ADL status;Decreased endurance;Decreased sensation Prognosis Should progress with skilled therapy intervention Safety Devices Safety Devices in Place (call light within reach) Restraints Initially in Place No Precautions Other Precautions fall precautions Activity Tolerance Endurance Fair Sitting Balance Supports self independently with both upper extremities Plan Treatment/Interventions Balance training;Bed mobility training;Family training;Gait trainin g;Monitor vital signs;Stair training;Therapeutic exercise;Transfer training;W/C training PT Frequency 5-7x/wk;Once per day Care Duration (# of days) 7 # of days Recommendation Recommendations Other (comment) (ongoing mobility assessment) Equipment Recommended None (Pt has needed DME) Recommendation Comments Pt standing at edge of bed today, however declining to ambulate. Pt demonstrates good static standing balance with use of FWW, which she has at home. Pt may be safe to discharge home pending assessment of overground ambulation. 02/15/17 0809 PT Last Visit PT Received On 02/15/17 Reason for Treatment Deconditioning (sepsis) Requires PT Follow Up Awaiting tx order Follow up PT Only? Yes (assessment of ambulation) PT Eval/Reassessment Date 02/15/17 Assistance Required 1 person Precautions Other Precautions fall precautions Other Comments Comments Chart reviewed, initial evaluation initiated. Per chart review, with with fistulou s Crohn's disease and known rectovaginal fistula presenting with several days worsening weak ness and fatigue. Pt supine in bed upon PT arrival and agreeable to participate. Pt reports no pain at rest, rather reporting overall body dicomfort. Pt becoming agitated throughout brice bjective portion, stating that the IV alarm has been going off the entire time she has been in the hospital. LUKASZ Lopez notified. Pt reporting dizziness upon sitting at EOB, which subs ided over the course of a couple minutes. Pt agreeing to stand at EOB with FWW, but declinin g to ambulate within room, stating that there is to omuch equipment to move around and "it's too much of a hassle". Assured pt of willingness to prepare lines for mobility, pt continui ng to decline. Pt resting comfortably at end of session with needs met. Cognition Overall Cognitive Status WFL Orientation Level Oriented Oriented x 4 Bed Mobility Rolling Modified independent Supine to Sit Supervision Sit to Supine Supervision Scooting Anterior/posterior;Supervision Transfers Sit to/from Stand Supervision Mobility Ambulation Assistance CRISTOBAL (pt declining to participate) Modalities Modalities Other therapy Other Therapy Education on PT POC, goals for today's session, and role of PT in discharge tamera cuellar. Pt demonstrating understanding. Activity Tolerance Activity Tolerance Other (Comment) (Pt limited by dizziness) Nurse Made Aware LUKASZ Lopez Safety Devices Safety Devices in Place (call light within reach) Restraints Initially in Place No Plan Treatment/Interventions Balance training;Bed mobility training;Family training;Gait trainin g;Monitor vital signs;Stair training;Therapeutic exercise;Transfer training;W/C training PT Frequency 5-7x/wk;Once per day Care Duration (# of days) 7 # of days Recommendation Recommendations Other (comment) (ongoing mobility assessment) Equipment Recommended None (Pt has needed DME) Recommendation Comments Pt standing at edge of bed today, however declining to ambulate. Pt demonstrates good static standing balance with use of FWW, which she has at home. Pt may be safe to discharge home pending assessment of overground ambulation. The patient demonstrated no indication of pain during therapy session. Education Completed: Education Topics: Rationale for PT, precautions, exercises, bed mobility, transfer train ing with hand placement Completed with: Patient Completed by: Verbal Education, Demonstration Response to Education: stated understanding Low - 00304 Moderate - 06607 High - 60495 History no personal factors &/or comorbidities Examination 1-2 elements Clinical Presentation stable Clinical Decision Making Complexity: Low 28785 Giulia Albert, PT 02/15/2017 12:11 PM Erin Roca DO - 02/15/2017 6:38 AM PSTFormatting of this note might be different from the briana kate. Progress Notes by Erin Turner DO at 02/15/17637 Author: Erin Turner DO Service: (none) Author Type: Physician Filed: 02/15/1732 Date of Service: 02/15/17637 Status: Signed Garbage Pick Up Worker: Erin Turner DO (Physician) [facility] Service: Infectious Disease Progress Note Hospital Day: LOS: 4 days Post-Op Day: * No surgery found * SUBJECTIVE Patient Summary: 61 y.o. female with significant past medical history of fistulous C rohn's disease, known rectovaginal fistula, currently on prednisone 15 mg daily in addition to Humira, currently receiving TPN via a Mediport, managed by Dr. Krishna who presents wit h several days of worsening weakness and fatigue, and initially presented to the emergency d epartment at [facility] in [place]. Workup there did show significant pyuria, and she was started on levofloxacin for urinary tract infection prior to transfer here. At t he time of arrival here, the patient did have a moderately elevated lactic acid level and ap peared dehydrated, requiring IV fluids, but responded well to IV fluids and was able to admi t to the medical floor. The patient reports that she feels slightly better today compared to when she went to the E R yesterday. She reports she has had frequent urinary tract infections in the past because o f her rectovaginal fistula, and has often had minimal symptoms as a warning sign. She did no t notice any specific changes in her urine or any dysuria prior to her current illness. She denies any cough or shortness of breath. She started her TPN about 3 days prior to admission , and started having diarrhea around the same time, even though her diarrhea had previously been well controlled with tincture of opium. CC: Fever, diffuse body aches Chart reviewed: No new events. Subjective The patient reports that she continues to have pain all over, no significant improvement ye t, remains her most frustrating symptoms. She denies any pain or burning with urination. No nausea or vomiting. ROS No fever, chills sweats. No nausea, vomiting or diarrhea. No rashes or pruritis. No oral pa in. Scheduled Medications fat emulsion 250 mL Intravenous Daily gabapentin 300 mg Oral TID insulin lispro (human) 0-16 Units Subcutaneous 4 times per day lactobacillus 1 packet Oral BID levofloxacin 500 mg Intravenous Q24H metoprolol 50 mg Oral BID nystatin Topical BID opium 6 mg Oral 4x Daily pantoprazole 40 mg Oral QAM AC predniSONE 15 mg Oral Daily warfarin 6 mg Oral Daily Continuous Infusions sodium chloride (IV) 110 mL/hr at 02/14/172139 TPN ADULT 50 mL/hr at 02/14/17 2143 PRN Medications acetaminophen OR acetaminophen, dextrose, magnesium sulfate OR magnesium sulfate OR magnesium sulfate, melatonin, morphine, ondansetron OR ondansetron, polyethylene gl ycol, potassium chloride OR potassium chloride OR potassium chloride, sodium phospha te IVPB 15 mmol OR sodium phosphate IVPB 30 mmol, zolpidem OBJECTIVE Vital Signs: BP 131/60 (BP Location: Right upper arm) | Pulse 64 | Temp 97.4 F (36.3 C) (Oral) | Resp 18 | Ht 1.727 m (5' 8") | Wt 78 kg (171 lb 15.3 oz) | SpO2 94% | BMI 26.15 kg/m Temp (24hrs), Av F (36.7 C), Min:97.4 F (36.3 C), Max:98.4 F (36.9 C) Exam: Const: Vitals reviewed. No acute distress Skin: No rashes, no edema Left chest Mediport site is unremarkable ENT: No thrush. Lungs: CTAB, no rales or wheezes Heart: RRR, no murmur Abd: soft, NT, + bowel sounds DATA CBC: Lab Results Component Value Date WBC 17.40 (H) 02/15/2017 RBC 3.89 02/15/2017 HGB 8.6 (L) 02/15/2017 HCT 28.8 (L) 02/15/2017 MCV 74.0 (L) 02/15/2017 MCH 22.2 (L) 02/15/2017 MCHC 30.0 (L) 02/15/2017 RDW 54.3 (H) 02/15/2017 PLT 499 (H) 02/15/2017 MPV 7.9 02/15/2017 DIFFTYPE MANUAL 02/15/2017 CMP: Lab Results Component Value Date NA 140 02/15/2017 K 3.6 02/15/2017 K 4.5 04/23/2014 CL 107 02/15/2017 CO2 26 02/15/2017 ANIONGAP 10 02/15/2017 GLUF 98 02/15/2017 BUN 13 02/15/2017 CREATININE 0.56 02/15/2017 BCR 22 02/15/2017 CA 7.7 (L) 02/15/2017 PROT 6.5 02/13/2017 ALB 2.4 (L) 02/13/2017 GLOB 4.1 02/13/2017 BILITOT 0.6 02/13/2017 ALP 134 (H) 02/13/2017 AST 21 02/13/2017 ALT 14 02/13/2017 EGFR >60 02/15/2017 Microbiology: Urine culture collected at [facility] has greater than 100,000 colo nies of Escherichia coli which is susceptible to levofloxacin. PROBLEM LIST Principal Problem: Sepsis(995.91) due to UTI Active Problems: Crohn's disease ([facility]) GERD (gastroesophageal reflux disease) HTN (hypertension) Chronic anticoagulation Hypertension Current chronic use of systemic steroids Neuropathy Encephalopathy in sepsis Immunosuppressed status ([facility]) ASSESSMENT & PLAN Sepsis(995.91) due to UTI / Immunosuppressed status (07/19/2014) The patient presents with sepsis in the setting of immunosuppression, with workup thus fa r most suggestive of urinary tract infection. The patient has had improving white blood cell count and resolution of fevers with levofloxacin, and urine culture has confirmed susceptib ility of levofloxacin. The patient remains afebrile, continue levofloxacin day #5 of 14. Crohn's disease ([facility]) (04/12/2014) The patient has recently been treated with Humira, prednisone, and tincture of opium. Encephalopathy in sepsis (02/11/2017) Improving, will continue to monitor. Leukocytosis This actually shows a slight predominance, no left shift. Unclear whether this represents the patient's baseline, but is not strongly suggestive of ongoing uncontrolled bacterial in fection at this point. Will monitor. Disposition: Ready for discharge from infectious diseases standpoint. She will need a presc ription for adequate supply of levofloxacin to last through February 24 at the time of disch arge. Follow-up with primary care. Follow-up with me as needed. Code Status: DNR/DNI ERIN TURNER DO 02/15/2017 onversion Transaction , Provider Unknown - 02/14/2017 3:56 PM PST Case Management by Morgan Richards RN at 02/14/17 4219 Author: Morgan Richadrs RN Service: (none) Author Type: Registered Nurse Filed: 02/14/17 8179 Date of Service: 02/14/17 9578 Status: Signed Garbage Pick Up Worker: Morgan Richards RN (Registered Nurse) 02/14/17 1500 Discharge Planning Evaluation Admitting Diagnosis Sepsis due to UTI Anticipated Disposition Facility Type Home;Home infusion Home Infusion & Tube/Enteral Feedings [facility] I spoke with Rhianna from [facility] to follow-up on Pt. Pt. was previously established wit [facility] in [place]. IBroAguila valdez DO - 02/14/2017 3:38 PM PSTFormatting of this note might be different from the briana ginal. Progress Notes by Aguila Bernard DO at 02/14/17 2730 Author: Aguila Bernard DO Service: Hospitalist Author Type: Physician Filed: 02/14/17 6104 Date of Service: 02/14/17 5280 Status: Signed Garbage Pick Up Worker: Aguila Bernard DO (Physician) PROGRESS NOTE 02/14/2017 for Smita Willingham on the hospitalist service. ASSESSMENT & PLAN UTI with sepsis Sespis appears to be improving. Continue levofloxacin, ID consulting, monitor cx from [place]. Encephalopathy Attributed to sepsis, now improved, monitor as we continue tx. Patient is at high risk for hospital delirium, avoid mind-altering meds especially benzodia zepines, encourage wakefulness during the day and foster rest at night, controlling pain usu ally has a net benefit, family support is beneficial. Acute on Chronic pain Patient requests that her IV morphine be increased from 4 mg to 6 mg and "maybe tomorrow I' ll be able to change to PO pain meds." I will proceed with this treatment in the setting of acute pain due to UTI, with expectation that there will be steady improvement in pain as inf ection improves. Crohn's disease with rectovaginal fistulas Patient needs to f/u with Dr Bocanegra for continuity of care / further management. Continue prednisone, Humira, outpatient management also per Dr Krishna. Continue TPN as a "bowel rest" strategy per Dr Krishna. Chronic diarrhea Due to above, continue tincture of opium. Hx DVT, mesenteric vein thrombosis On warfarin, goal INR 2-3, monitor. Problem list: Principal Problem: Sepsis(995.91) due to UTI Active Problems: Crohn's disease (HCC) GERD (gastroesophageal reflux disease) HTN (hypertension) Chronic anticoagulation Hypertension Current chronic use of systemic steroids Neuropathy Encephalopathy in sepsis Immunosuppressed status (HCC) Length of stay: 3 days DVT prophylaxis: (warfarin) Code status: DNR Disposition: inpatient SUBJECTIVE Patient seen/examined lying in bed, c/o generalized ache that she attributes to acute urina ry tract infection and requests further pain medication. States that the IV morphine doesn't do anything but then when I suggested an oral option she instead wanted the IV morphine dos e increased from 4 mg to 6 mg. Of note, her outpatient providers weaned her off of all narco tics (other than tincture) months ago. OBJECTIVE Temp: [97.5 F (36.4 C)-98.3 F (36.8 C)] 97.8 F (36.6 C) (02/15 1512) BP: (122-150)/(56-76) 141/63 (02/15 1512) Heart Rate: [60-68] 68 (02/15 1512) Resp: [16-18] 18 (02/15 1512) SpO2: [93 %-94 %] 93 % (02/15 1512) Weight: [74.9 kg (165 lb 3.2 oz)] 74.9 kg (165 lb 3.2 oz) (02/14 515) Physical exam: NAD AOx3 HENT - MMM, conjunctivae normal Heart - RRR no murmur, no JVD, normal radial / DP pulses B/L Lungs - CTAB/L no WRR, good effort Abd - SNTND +BSx4 Ext - Good ROM no tenderness or edema Skin - dry no erythema CBC: Lab Results Component Value Date WBC 17.18 (H) 02/14/2017 RBC 4.03 02/14/2017 HGB 8.6 (L) 02/14/2017 HCT 29.3 (L) 02/14/2017 MCV 72.7 (L) 02/14/2017 MCH 21.3 (L) 02/14/2017 MCHC 29.3 (L) 02/14/2017 RDW 53.8 (H) 02/14/2017 PLT 489 (H) 02/14/2017 MPV 7.5 02/14/2017 DIFFTYPE MANUAL 02/14/2017 CMP: Lab Results Component Value Date NA 140 02/14/2017 K 3.7 02/14/2017 K 4.5 04/23/2014 CL 109 02/14/2017 CO2 24 02/14/2017 ANIONGAP 11 02/14/2017 GLUF 95 02/14/2017 BUN 13 02/14/2017 CREATININE 0.62 02/14/2017 BCR 21 02/14/2017 CA 7.2 (L) 02/14/2017 PROT 6.5 02/13/2017 ALB 2.4 (L) 02/13/2017 GLOB 4.1 02/13/2017 BILITOT 0.6 02/13/2017 ALP 134 (H) 02/13/2017 AST 21 02/13/2017 ALT 14 02/13/2017 EGFR >60 02/14/2017 MEDICATIONS fat emulsion 250 mL Intravenous Daily gabapentin 300 mg Oral TID insulin lispro (human) 0-16 Units Subcutaneous 4 times per day lactobacillus 1 packet Oral BID levofloxacin 500 mg Intravenous Q24H metoprolol 50 mg Oral BID nystatin Topical BID opium 6 mg Oral 4x Daily pantoprazole 40 mg Oral QAM AC predniSONE 15 mg Oral Daily warfarin 6 mg Oral Daily sodium chloride (IV) 110 mL/hr at 02/14/17 0542 TPN ADULT 50 mL/hr at 02/13/172037 TPN ADULT PRN: acetaminophen OR acetaminophen, dextrose, magnesium sulfate OR magnesium sulfate OR magnesium sulfate, melatonin, morphine, ondansetron OR ondansetron, polyethylene gl ycol, potassium chloride OR potassium chloride OR potassium chloride, sodium phospha te IVPB 15 mmol OR sodium phosphate IVPB 30 mmol, zolpidem I spent over 35 minutes in reviewing patient s data, examination of patient and discussin g care of patient with patient and family. At least, 50% of time was face to face counseling or coordinating of care. Signature: Aguila Bernard DO 02/14/2017 3:38 PM Yusra Foote PT - 3:30 PM PST Therapy Progress Note by Yusra Oconnor PT at 02/14/17 1530 Author: Yusra Oconnor PT Service: (none) Author Type: Physical Therapist Filed: 02/14/17 153 Date of Service: 02/14/171529 Status: Signed Garbage Pick Up Worker: Yusra Oconnor PT (Physical Therapist) 02/14/17 153 PT Last Visit PT Received On 02/14/17 Reason for Treatment Deconditioning (sepsis) Requires PT Follow Up Unavailable Other Comments Comments 2nd attempt for PT eval today; DO already in room evaluating pt. Will f/u as cens us permits. Yusra Foote PT - 11:46 AM PST Therapy Progress Note by Yusra Oconnor PT at 02/14/17 1146 Author: Yusra Oconnor PT Service: (none) Author Type: Physical Therapist Filed: 02/14/17 1209 Date of Service: 02/14/17 1146 Status: Signed Garbage Pick Up Worker: Yusra Oconnor PT (Physical Therapist) 02/14/17 1146 PT Last Visit PT Received On 02/14/17 Reason for Treatment Deconditioning (sepsis) Requires PT Follow Up Unavailable Other Comments Comments [employer] present administerring bed bath; RN requests PT return ~1500 as that will be w hen pt has next dose of IV pain meds. PT will attempt to f/u later for eval as census permi ts. onversion Transaction , Provider Unknown - 02/14/2017 8:31 AM PST Pharmacy Note by Latha Hall RPH at 02/14/17 0831 Author: Latha Hall RPH Service: Pharmacy Author Type: Pharmacist Filed: 02/14/17830 Date of Service: 02/14/17830 Status: Signed Garbage Pick Up Worker: Latha Hall RPH (Pharmacist) TPN notes: Potassium = 3.7 Phosphorus = 2.1 Will give Potassium Phosphate 15 mmol IVPB replacement and increase the amount of K Phos in tonight's TPN formulation. All other electrolytes within normal limits. A couple of elevated blood sugars were charted over the previous 24 hour period: 164, 142, 100, 95 Will plan to increase Dextrose concentration to 20% and add 10 units of insulin to bag. Andreea ntain rate at 50 ml/hr. Erin Roca DO - 02/14/2017 6:42 AM PSTFormatting of this note might be different from the briana ginal. Progress Notes by Erin Turner DO at 02/14/17641 Author: Erin Turner DO Service: (none) Author Type: Physician Filed: 02/14/1725 Date of Service: 02/14/17641 Status: Signed Garbage Pick Up Worker: Erin Turner DO (Physician) [facility] Service: Infectious Disease Progress Note Hospital Day: LOS: 3 days Post-Op Day: * No surgery found * SUBJECTIVE Patient Summary: 61 y.o. female with significant past medical history of fistulous C rohn's disease, known rectovaginal fistula, currently on prednisone 15 mg daily in addition to Humira, currently receiving TPN via a Mediport, managed by Dr. Krishna who presents wit h several days of worsening weakness and fatigue, and initially presented to the emergency d epartment at [facility] in [place]. Workup there did show significant pyuria, and she was started on levofloxacin for urinary tract infection prior to transfer here. At t he time of arrival here, the patient did have a moderately elevated lactic acid level and ap peared dehydrated, requiring IV fluids, but responded well to IV fluids and was able to admi t to the medical floor. The patient reports that she feels slightly better today compared to when she went to the E R yesterday. She reports she has had frequent urinary tract infections in the past because o f her rectovaginal fistula, and has often had minimal symptoms as a warning sign. She did no t notice any specific changes in her urine or any dysuria prior to her current illness. She denies any cough or shortness of breath. She started her TPN about 3 days prior to admission , and started having diarrhea around the same time, even though her diarrhea had previously been well controlled with tincture of opium. CC: Fever, diffuse body aches Chart reviewed: No new events. Subjective The patient reports that she continues to have pain all over, no significant change since y . She denies any nausea or vomiting. No fevers. ROS No fever, chills sweats. No nausea, vomiting or diarrhea. No rashes or pruritis. No oral pa in. Scheduled Medications fat emulsion 250 mL Intravenous Daily gabapentin 300 mg Oral TID insulin lispro (human) 0-16 Units Subcutaneous 4 times per day lactobacillus 1 packet Oral BID levofloxacin 500 mg Intravenous Q24H metoprolol 50 mg Oral BID nystatin Topical BID opium 6 mg Oral 4x Daily pantoprazole 40 mg Oral QAM AC predniSONE 15 mg Oral Daily warfarin 6 mg Oral Daily Continuous Infusions sodium chloride (IV) 110 mL/hr at 02/14/17 0542 TPN ADULT 50 mL/hr at 02/13/178 PRN Medications acetaminophen OR acetaminophen, dextrose, magnesium sulfate OR magnesium sulfate OR magnesium sulfate, melatonin, morphine, ondansetron OR ondansetron, polyethylene gl ycol, potassium chloride OR potassium chloride OR potassium chloride, sodium phospha te IVPB 15 mmol OR sodium phosphate IVPB 30 mmol, zolpidem OBJECTIVE Vital Signs: BP 145/68 (BP Location: Right upper arm) | Pulse 63 | Temp 98.3 F (36.8 C) (Oral) | Resp 16 | Ht 1.727 m (5' 8") | Wt 74.9 kg (165 lb 3.2 oz) | SpO2 93% | BMI 25.12 kg/m Temp (24hrs), Av.9 F (36.6 C), Min:97.5 F (36.4 C), Max:98.3 F (36.8 C) Exam: Const: Vitals reviewed. No acute distress Skin: No rashes, no edema Left chest Mediport site is unremarkable ENT: No thrush. Lungs: CTAB, no rales or wheezes Heart: RRR, no murmur Abd: soft, NT, + bowel sounds DATA CBC: Lab Results Component Value Date WBC 17.18 (H) 02/14/2017 RBC 4.03 02/14/2017 HGB 8.6 (L) 02/14/2017 HCT 29.3 (L) 02/14/2017 MCV 72.7 (L) 02/14/2017 MCH 21.3 (L) 02/14/2017 MCHC 29.3 (L) 02/14/2017 RDW 53.8 (H) 02/14/2017 PLT 489 (H) 02/14/2017 MPV 7.5 02/14/2017 DIFFTYPE MANUAL 02/14/2017 CMP: Lab Results Component Value Date NA 140 02/14/2017 K 3.7 02/14/2017 K 4.5 04/23/2014 CL 109 02/14/2017 CO2 24 02/14/2017 ANIONGAP 11 02/14/2017 GLUF 95 02/14/2017 BUN 13 02/14/2017 CREATININE 0.62 02/14/2017 BCR 21 02/14/2017 CA 7.2 (L) 02/14/2017 PROT 6.5 02/13/2017 ALB 2.4 (L) 02/13/2017 GLOB 4.1 02/13/2017 BILITOT 0.6 02/13/2017 ALP 134 (H) 02/13/2017 AST 21 02/13/2017 ALT 14 02/13/2017 EGFR >60 02/14/2017 Microbiology: Urine culture collected at [facility] has greater than 100,000 colo nies of a lactose fermenting gram-negative rods, further identification and susceptibility p ending. No blood cultures were sent. PROBLEM LIST Principal Problem: Sepsis(995.91) due to UTI Active Problems: Crohn's disease ([facility]) GERD (gastroesophageal reflux disease) HTN (hypertension) Chronic anticoagulation Hypertension Current chronic use of systemic steroids Neuropathy Encephalopathy in sepsis Immunosuppressed status ([facility]) ASSESSMENT & PLAN Sepsis(995.91) due to UTI / Immunosuppressed status (07/19/2014) The patient presents with sepsis in the setting of immunosuppression, with workup thus fa r most suggestive of urinary tract infection. The patient has had improving white blood cell count and resolution of fevers with levofloxacin. Await final urine culture results from [facility] outside hospital. Unfortunately, no blood cultures were sent, therefore will need surveill ance blood cultures drawn from her Mediport 1-2 weeks after completing her antibiotic therap y. Crohn's disease ([facility]) (04/12/2014) The patient has recently been treated with Humira, prednisone, and tincture of opium. Encephalopathy in sepsis (02/11/2017) Improving, will continue to monitor. Code Status: DNR/DNI ERIN TURNER DO 02/14/2017 onversion Transaction , Provider Unknown - 02/14/2017 5:06 AM PST Progress Notes by Tanika Alaniz RN at 02/14/17 0506 Author: Tanika Alaniz RN Service: (none) Author Type: Registered Nurse Filed: 02/14/17 0509 Date of Service: 02/14/17 0506 Status: Signed Garbage Pick Up Worker: Tanika Alaniz RN (Registered Nurse) Pt A+Ox4, VSS. Pt continued to c/o generalized body pain 11/18, received morphine q3h throug hout shift. Awaiting blood and urine cultures from [facility]. Tanika Alaniz RN IAyee, Makenzie Arshad MD - 02/13/2017 1:16 PM PST Progress Notes by Makenzie Raymond MD at 02/13/17 1316 Author: Makenzie Raymond MD Service: (none) Author Type: Physician Filed: 02/13/17 1734 Date of Service: 02/13/17 1316 Status: Addendum Garbage Pick Up Worker: Makenzie Raymond MD (Physician) Related Notes: Original Note by Makenzie Raymond MD (Physician) filed at 02/13/[address] [facility] Service: Hospitalist Progress Note Pt: Smita Willingham AGE/SEX: 61 y.o. female : 1955 ROOM: [address] [place] [address] REQUESTING PROVIDER: Makenzie Raymond MD TODAY'S DATE: 02/13/2017 Hospital Day: LOS: 2 days + past medical history of Crohn's disease, With rectovaginal fistula, Under GI Care of Dr. Krishna admitted with UTI SUBJECTIVE she states feel OK afebril Scheduled Medications fat emulsion 250 mL Intravenous Daily gabapentin 300 mg Oral TID insulin lispro (human) 0-16 Units Subcutaneous 4 times per day lactobacillus 1 packet Oral BID levofloxacin 500 mg Intravenous Q24H metoprolol 50 mg Oral BID opium 6 mg Oral 4x Daily pantoprazole 40 mg Oral QAM AC predniSONE 15 mg Oral Daily warfarin 6 mg Oral Daily Continuous Infusions sodium chloride (IV) 110 mL/hr at 02/13/17 0750 TPN ADULT 35 mL/hr at 02/12/17 2218 TPN ADULT PRN Medications acetaminophen OR acetaminophen, dextrose, magnesium sulfate OR magnesium sulfate OR magnesium sulfate, morphine, ondansetron OR ondansetron, polyethylene glycol, potas sium chloride OR potassium chloride OR potassium chloride, sodium phosphate IVPB 15 mmol OR sodium phosphate IVPB 30 mmol, zolpidem Allergy: Allergies Allergen Reactions Demerol [Meperidine] Other (See Comments) Unknown Erythromycin Other (See Comments) unknown Levofloxacin Other (See Comments) tendinitis Reglan [Metoclopramide] Agitation Unknown Penicillins Nausea and Vomiting OBJECTIVE Vitals: Patient Vitals for the past 24 hrs: BP Temp Temp src Pulse Resp SpO2 Weight 02/13/17 1130 114/54 98.3 F (36.8 C) Oral 70 16 91 % - 02/13/17 0732 118/56 97.7 F (36.5 C) Oral 65 16 97 % - 02/13/17 0419 117/54 97.9 F (36.6 C) Oral 67 18 94 % 75.1 kg (165 lb 9.1 oz) 02/12/17 2333 147/65 98 F (36.7 C) Oral 73 18 93 % - 02/12/17 2004 117/56 96.5 F (35.8 C) Oral 77 18 91 % - 02/12/17 1600 134/65 98.5 F (36.9 C) Oral 74 16 94 % - I&O Detailed Table: Intake/Output Summary (Last 24 hours) at 02/13/17 1316 Last data filed at 02/13/17 1100 Gross per 24 hour Intake 3099 ml Output 0 ml Net 3099 ml Patient Vitals for the past 96 hrs: Weight 02/13/17 0419 75.1 kg (165 lb 9.1 oz) 02/11/17 2020 74.5 kg (164 lb 4.8 oz) Hemodynamics Last 24hrs: Review of systems as per Subjective compliant the rest non contrbutory Examination: HEENT-perrel NEck Supple no JVD, no L/N lung- BS++ no crepts No wheez heart S1 S2 no murmur abdomen- soft BS+ no tenderness no guarding Or rebound EXt no edema RECRUITMENT SPECIALIST alert no focality LABS: Recent Labs Lab 02/13/17 0509 02/12/17 0641 WBC 18.02* 19.94* HGB 8.7* 10.1* HCT 30.0* 34.4 PLT 542* 594* NEUTOPHILPCT -- 67.56 MONOPCT -- 6.87 Recent Labs Lab 02/13/17 0509 02/12/17 0641 NA 140 137 K 4.2 5.3* CL 111* 106 CO2 19* 21* BUN 17 26* CREATININE 0.71 0.93 PROT 6.5 -- BILITOT 0.6 -- ALT 14 -- AST 21 -- Phosphorus: Recent Labs Lab 02/13/17508 PHOS 2.5 Recent Labs Lab 02/13/17 05002/12/17 0641 MG 1.7 2.1 No results for input(s): AMYLASE in the last 168 hours. No results for input(s): PHART, PO2ART, EJB6EEN, Q3ROCVIC, BEART in the last 168 hours. Recent Labs Lab 02/13/17 05002/12/17 0641 02/11/17 2140 APTT -- -- 27 INR 1.4 1.4 1.3 No results for input(s): TSH, T3FREE, FREET4 in the last 168 hours. No results for input(s): CKTOTAL, TROPONINI, TROPONINT, CKMBINDEX in the last 168 hours. PROBLEM LIST Principal Problem: Sepsis(995.91) due to UTI Active Problems: Crohn's disease ([facility]) GERD (gastroesophageal reflux disease) HTN (hypertension) Chronic anticoagulation Hypertension Current chronic use of systemic steroids Neuropathy Encephalopathy in sepsis Immunosuppressed status ([facility]) ASSESSMENT & PLAN Principal Problem: Sepsis(995.91) due to UTI Active Problems: Crohn's disease ([facility]) GERD (gastroesophageal reflux disease) HTN (hypertension) Chronic anticoagulation Hypertension Current chronic use of systemic steroids Neuropathy Encephalopathy in sepsis Immunosuppressed status (HCC) Sepsis(995.91) due to UTI /Immunosuppressed status(07/19/2014) on IV levofloxacin 2nd day , UC and BC f/ up were send out from [facility] ER . 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 INR 1.4 today Coumadin 6 mg On board recheck INR on Tuesday GI pro skin care perianal irritation nystatin powder order deconditioning PT requested MAKENZIE RAYMOND MD MD 02/13/2017 1:16 PM oErin barraza DO - 02/13/2017 8:28 AM PST Progress Notes by Erin Turner DO at 02/13/17827 Author: Erin Turner DO Service: (none) Author Type: Physician Filed: 02/13/1756 Date of Service: 02/13/17827 Status: Signed Garbage Pick Up Worker: Erin Turner DO (Physician) [facility] Service: Infectious Disease Progress Note Hospital Day: LOS: 2 days Post-Op Day: * No surgery found * SUBJECTIVE Patient Summary: 61 y.o. female with significant past medical history of fistulous C rohn's disease, known rectovaginal fistula, currently on prednisone 15 mg daily in addition to Humira, currently receiving TPN via a Mediport, managed by Dr. Krishna who presents wit h several days of worsening weakness and fatigue, and initially presented to the emergency d epartment at [facility] in [place]. Workup there did show significant pyuria, and she was started on levofloxacin for urinary tract infection prior to transfer here. At t he time of arrival here, the patient did have a moderately elevated lactic acid level and ap peared dehydrated, requiring IV fluids, but responded well to IV fluids and was able to admi t to the medical floor. The patient reports that she feels slightly better today compared to when she went to the E R yesterday. She reports she has had frequent urinary tract infections in the past because o f her rectovaginal fistula, and has often had minimal symptoms as a warning sign. She did no t notice any specific changes in her urine or any dysuria prior to her current illness. She denies any cough or shortness of breath. She started her TPN about 3 days prior to admission , and started having diarrhea around the same time, even though her diarrhea had previously been well controlled with tincture of opium. CC: Fever, diffuse body aches Chart reviewed: No new events. Subjective The patient reports that she is aching all over, otherwise feeling better. She recalls havi ng tendinitis in her ankles when taking Levaquin at one time in the past, but this does not remind her of that. She has taken Levaquin since then without any difficulty. She denies any dysuria or flank pain. ROS No fever, chills sweats. No nausea, vomiting or diarrhea. No rashes or pruritis. No oral pa in. Scheduled Medications fat emulsion 250 mL Intravenous Daily gabapentin 300 mg Oral TID insulin lispro (human) 0-16 Units Subcutaneous 4 times per day lactobacillus 1 packet Oral BID levofloxacin 500 mg Intravenous Q24H metoprolol 50 mg Oral BID opium 6 mg Oral 4x Daily pantoprazole 40 mg Oral QAM AC predniSONE 15 mg Oral Daily warfarin 6 mg Oral Daily Continuous Infusions sodium chloride (IV) 110 mL/hr at 02/13/17 0750 TPN ADULT 35 mL/hr at 02/12/17 2218 TPN ADULT PRN Medications acetaminophen OR acetaminophen, dextrose, magnesium sulfate OR magnesium sulfate OR magnesium sulfate, morphine, ondansetron OR ondansetron, polyethylene glycol, potas sium chloride OR potassium chloride OR potassium chloride, sodium phosphate IVPB 15 mmol OR sodium phosphate IVPB 30 mmol, zolpidem OBJECTIVE Vital Signs: BP 118/56 (BP Location: Left upper arm) | Pulse 65 | Temp 97.7 F (36.5 C) (Oral) | R dago 16 | Ht 1.727 m (5' 8") | Wt 75.1 kg (165 lb 9.1 oz) | SpO2 97% | BMI 25.17 kg/m Temp (24hrs), Av.9 F (36.6 C), Min:96.5 F (35.8 C), Max:98.5 F (36.9 C) Exam: Const: Vitals reviewed. No acute distress Skin: No rashes, no edema Left chest Mediport site is unremarkable ENT: No thrush. Lungs: CTAB, no rales or wheezes Heart: RRR, no murmur Abd: soft, NT, + bowel sounds DATA CBC: Lab Results Component Value Date WBC 18.02 (H) 02/13/2017 RBC 4.20 02/13/2017 HGB 8.7 (L) 02/13/2017 HCT 30.0 (L) 02/13/2017 MCV 71.3 (L) 02/13/2017 MCH 20.7 (L) 02/13/2017 MCHC 29.0 (L) 02/13/2017 RDW 54.3 (H) 02/13/2017 PLT 542 (H) 02/13/2017 MPV 7.7 02/13/2017 DIFFTYPE MANUAL 02/13/2017 CMP: Lab Results Component Value Date NA 140 02/13/2017 K 4.2 02/13/2017 K 4.5 04/23/2014 CL 111 (H) 02/13/2017 CO2 19 (L) 02/13/2017 ANIONGAP 14 02/13/2017 GLUF 89 02/13/2017 BUN 17 02/13/2017 CREATININE 0.71 02/13/2017 BCR 25 02/13/2017 CA 8.3 (L) 02/13/2017 PROT 6.5 02/13/2017 ALB 2.4 (L) 02/13/2017 GLOB 4.1 02/13/2017 BILITOT 0.6 02/13/2017 ALP 134 (H) 02/13/2017 AST 21 02/13/2017 ALT 14 02/13/2017 EGFR >60 02/13/2017 Microbiology: Urine culture and blood cultures were collected at [facility] jesse or to transfer. Updated reports have been requested. PROBLEM LIST Principal Problem: Sepsis(995.91) due to UTI Active Problems: Crohn's disease (HCC) GERD (gastroesophageal reflux disease) HTN (hypertension) Chronic anticoagulation Hypertension Current chronic use of systemic steroids Neuropathy Encephalopathy in sepsis Immunosuppressed status (HCC) ASSESSMENT & PLAN Sepsis(995.91) due to UTI / Immunosuppressed status (07/19/2014) The patient presents with sepsis in the setting of immunosuppression, with workup thus fa r most suggestive of urinary tract infection. The patient received levofloxacin yesterday, a nd so far has had symptomatic improvement as well as decrease in her white blood cell count. Today's labs show no left shift. Continue Levaquin while awaiting urine and blood cultures from the outside hospital. Crohn's disease (HCC) (04/12/2014) The patient has recently been treated with Humira, prednisone, and tincture of opium. Encephalopathy in sepsis (02/11/2017) Improving, will continue to monitor. Code Status: DNR/DNI ERIN TURNER DO 02/13/2017 onversion Transaction , Provider Unknown - 02/13/2017 7:29 AM PST Pharmacy Note by Latha Hall RPH at 02/13/17728 Author: Latha Hall RPH Service: Pharmacy Author Type: Pharmacist Filed: 02/13/17728 Date of Service: 02/13/17728 Status: Signed Garbage Pick Up Worker: Latha Hall RPH (Pharmacist) TPN notes: Blood sugars well controlled with readings of 102, 100, 89, 88 Electrolytes within normal limits with exception that Chloride high at 111 and CO2 low at 1 9. Will remove Chloride from TPN and increase acetate. Will add small amount of Potassium Ph osphate since Potassium now within normal limits. Will increase rate to 50 ml/hr and continue with no insulin in TPN. onver roshan Transaction, Provider Unknown - 02/13/2017 4:28 AM PST Progress Notes by Tanika Alaniz RN at 02/13/17427 Author: Tanika Alaniz RN Service: (none) Author Type: Registered Nurse Filed: 02/13/17430 Date of Service: 02/13/17427 Status: Signed Garbage Pick Up Worker: Tanika Alaniz RN (Registered Nurse) Pt A+Ox4, but weak and lethargic. VSS. Morphine x3 given for generalized pain. TPN running through port. Pt incontinent of urine and sometimes stool. Tanika Alaniz, RN onver roshan Main, Provider Unknown - 02/12/2017 3:59 PM PDT Case Management by Terrance Madsen MS, SENIOR INFORMATION SYSTEMS ARCHITECT at 02/12/17 8406 Author: Terrance Madsen MS, SENIOR INFORMATION SYSTEMS ARCHITECT Service: (none) Author Type: Intensive Care Specialist Filed: 02/12/17 2074 Date of Service: 02/12/17 5343 Status: Signed Garbage Pick Up Worker: Terrance Madsen MS, MSW (Intensive Care Specialist) 02/12/17 6218 Discharge Planning Evaluation Admitting Diagnosis Sepsis due to UTI Readmission No Living Arrangements Spouse/significant other Support Systems Spouse/significant other Type of Residence Private residence Independent with ADL's Yes Independent with Mobility Yes;Other (comment) (has cane and walker when needed) Home Care Services No Caregiver after Discharge No Mental Status Oriented Prior functional status Cm met with pt and discussed plan of care post d/c. Pt resides at [facility] with spouse Kole in [facility]. Pt does not drive since she has been ill., her s pouse is able to drive and can come see her. Pt reports a significant history of feeling ill and not be at home lately. She Power of Assistant Project Manager No Anticipated Discharge Plan Post Acute Care Needs None at this time Plan communicated to patient/family Yes Resources Financial concerns No Transportation issues No Patient/Family concerns No Prescription Plan Yes Vascular access device Yes Vascular access type mediport Anticipated Disposition Facility Type Home Medicare Important Message (KAMRYN) Not applicable (admission IM remains valid) CM met with pt to discuss plan of care post discharge. Pt is a 61 y.o. female with significant past medical history of complicated Crohn's disease status post partial bowel r esection, history of anal vagina fistula, immunosuppressed status, history of splenectomy, h istory of mesenteric vein thrombosis as well as deep vein thrombosis requiring chronic long- term anticoagulation on Coumadin who presents to the Emergency Department in [facility]. She f ollows up with Dr. Coburn for her Crohn's disease. So as to give rest to her GI tract, h e recommended going on TPN. Patient has a chronic long-term left chest port and was being us ed for TPN. She says that it was started around 3-4 days ago. However with the starting of t he TPN, she has been progressively getting more weak and today because of the nausea vomitin g had to call the ambulance and come to the ER. She was thereafter transferred over to [facility] [place] for further care. Patient's PCP is: No primary care provider on file. - Dr. Fernandes. Patient's insurance: medicare, [employer] Coverage concerns:none reported Medication coverage/concerns: none Community resources utilized / needed: uses [facility] [place] for TPN. May need home health to follow when discharged pending medical team recommendati ons. Assistance in transportation: spouse Identification of any specific education / training: CM role Barriers to Discharge / Alternative housing needed: Patient would like the [facility] repr esentative to look at her cadd pump, she feels it isn't operating correctly. Anticipated DCP: home, pending medical status and recommendations. Terrance Madsen onver roshan Transaction, Provider Unknown - 02/12/2017 2:07 PM PDT Pharmacy Note by Latha Hall RPH at 02/12/171406 Author: Latha Hall RPH Service: Pharmacy Author Type: Pharmacist Filed: 02/12/171406 Date of Service: 02/12/171406 Status: Signed Garbage Pick Up Worker: Latha Hall RPH (Pharmacist) Pharmacy Consult for INITIATION of Parenteral Nutrition Smita Willingham 61 y.o. female Ht Readings from Last 1 Encounters: 02/11/17 1.727 m (5' 8") Wt Readings from Last 1 Encounters: 02/11/17 74.5 kg (164 lb 4.8 oz) Streaming Media Specialist recommendations: Recommendations Recommended parenteral nutritional needs for pharmacy Recommend TPN of D23, 6% AA with goal rate of 65 ml/hr plus 250 ml 20% lipids daily to provide 2094 kcal, 94 g pro, and 1810 ml t otal volume (28 kcal/kg and 1.26 g/kg pro based on admit wt 74.5 kg). Patient is on home TPN formula. Most recent label indicates that it contains 55 grams amino acids, 100 grams dextrose, and 20 grams lipids. Will start with Dextrose 15% / Amino Acids 6% to run at initial rate of 35 ml/hr continuall y over 24 hours. This will provide 50.4 grams protein and 126 grams of dextrose. Will also s tart lipids 20% X 250 ml bag with first bag tomorrow morning to run over 12 hours. Will not include any potassium in initial bag since K is high at 5.3 Will not include any insulin. Cover with sliding scale as needed onver roshan Transaction, Provider Unknown - 02/12/2017 12:24 PM PDT Progress Notes by Sofía Chamberlain RPH at 02/12/17 1224 Author: Sofía Chamberlain RPH Service: Pharmacy Author Type: Pharmacist Filed: 02/12/17 4134 Date of Service: 02/12/17 1224 Status: Signed Garbage Pick Up Worker: Sofía Chamberlain RPH (Pharmacist) Clinical Pharmacy Note: Renal Monitoring Smita Willingham 61 y.o. female Ht Readings from Last 1 Encounters: 02/11/17 1.727 m (5' 8") Wt Readings from Last 1 Encounters: 02/11/17 74.5 kg (164 lb 4.8 oz) Serum creatinine: 0.93 mg/dL 02/12/17 0641 Estimated creatinine clearance: 64.1 mL/min Pharmacy dosing for renal function per Dr. Tobar. Currently, there are no medications needing to be adjusted. Pharmacy will continue to monit or for changes in medication orders and in renal function and adjust accordingly. Sofía Chamberlain PharmD 02/12/2017 12:24 PM onver roshan Transaction, Provider Unknown - 02/12/2017 11:40 AM PDT Progress Notes by Sanjuana Spivey RD at 02/12/17 7936 Author: Sanjuana Spivey RD Service: (none) Author Type: Registered Dietitian Filed: 02/12/17 1142 Date of Service: 02/12/17 1140 Status: Signed Garbage Pick Up Worker: Sanjuana Spivey RD (Registered Dietitian) 02/12/17 1128 Subjective Timepoint Admit (triggers: wt loss, home TPN, Consult: poor po) Pt c/o Pt admitted with sepsis. Pt on home TPN for the past 3-4 days with bowel rest. Pt wi th hx Crohn's, s/p partial bowel resection. Chronic diarrhea for the past 3-4 months. Diet Experience Self-selected diet(s) followed Pt has been NPO for the past 3-4 days. Reports appetite was fine prior to bowel rest, was eating 2 meals per day plus snacks. Last time she ate she ate 50% shrimp and pasta. Home Nutrition Support Pt unsure of what company provides her TPN, stated it may be [facility] are. Called [facility], she is not their pt. Pt unsure of home TPN regimen. Fluid / Beverage Intake Oral Fluids Amount Clear liquids ad salvatore. Food Intake Type of Food / Meals Clear liquid diet. Parenteral Nutrition Intake Rate/Solution IV fluids of NS at 110 ml/hr Anthropometrics Weight change Pt weighed 84 kg on 10/10/15, wt loss of 11.3% is severe over the past 4 months . Biochemical data, medical tests, and procedures reviewed Biochemical data, medical tests, and procedures reviewed K+ elevated at 5.3. BUN slightly e levated at 26. Estimated Energy Needs Total Energy Estimated Needs 4116-9118 kcal Method for Estimating Needs 28-32 kcal/kg (admit wt of 74.5 kg) Estimated Protein Needs Total Protein Estimated Needs 89-112 g Method for Estimating Needs 1.2-1.5 g/kg (admit wt of 74.5 kg) Recommendations Recommended parenteral nutritional needs for pharmacy Recommend TPN of D23, 6% AA with goal rate of 65 ml/hr plus 250 ml 20% lipids daily to provide 2094 kcal, 94 g pro, and 1810 ml t otal volume (28 kcal/kg and 1.26 g/kg pro based on admit wt 74.5 kg). Recommended energy needs ADAT per MD to 2 gm Na. Monitor and make further nutrition recomme ndations as indicated. Recommended mineral needs Pt may be at increased risk for refeeding syndrome. Monitor lytes (K+, Phos, Mg) and replace to WNL if low prior to initiating/advancing PN. Nutritional Risk Nutritional risk High Follow up date 02/15/[address] Makenzie Yen MD - 02/12/2017 11:22 AM PDT Progress Notes by Makenzie Raymond MD at 02/12/17 1122 Author: Makenzie Raymond MD Service: (none) Author Type: Physician Filed: 02/12/17 1156 Date of Service: 02/12/17 1122 Status: Addendum Garbage Pick Up Worker: Makenzie Raymond MD (Physician) Related Notes: Original Note by Makenzie Raymond MD (Physician) filed at 02/12/[address] [facility] Service: Hospitalist Progress Note Pt: Smita Willingham AGE/SEX: 61 y.o. female : 1955 ROOM: [address] [place] [address] REQUESTING PROVIDER: Makenzie Raymond MD TODAY'S DATE: 02/12/2017 Hospital Day: LOS: 1 day SUBJECTIVE afebril no diarrha this am Scheduled Medications gabapentin 300 mg Oral TID lactobacillus 1 packet Oral BID levofloxacin 500 mg Intravenous Q24H metoprolol 50 mg Oral BID pantoprazole 40 mg Oral QAM AC predniSONE 15 mg Oral Daily Continuous Infusions sodium chloride (IV) 110 mL/hr at 02/12/17 1006 PRN Medications acetaminophen OR acetaminophen, fentaNYL OR fentaNYL, magnesium sulfate OR magn esium sulfate OR magnesium sulfate, ondansetron OR ondansetron, phosphorus OR so dium phosphate IVPB 15 mmol OR sodium phosphate IVPB 30 mmol, polyethylene glycol, potas sium chloride OR potassium chloride OR potassium chloride, zolpidem Allergy: Allergies Allergen Reactions Demerol [Meperidine] Other (See Comments) Unknown Erythromycin Other (See Comments) unknown Levofloxacin Other (See Comments) tendinitis Reglan [Metoclopramide] Agitation Unknown Penicillins Nausea and Vomiting OBJECTIVE Vitals: Patient Vitals for the past 24 hrs: BP Temp Temp src Pulse Resp SpO2 Height Weight 02/12/17 0700 107/59 98 F (36.7 C) Oral 89 16 90 % - - 02/12/17 0300 129/61 - - 83 - 92 % - - 02/12/17 0259 129/61 98 F (36.7 C) Oral 82 18 91 % - - 02/12/17 0100 - - - 79 - - - - 02/11/17 2308 - 97.7 F (36.5 C) Oral 108 18 - - - 02/11/172019 136/59 98.2 F (36.8 C) Oral 105 24 - 1.727 m (5' 8") 74.5 kg (164 lb 4.8 oz) I&O Detailed Table: Intake/Output Summary (Last 24 hours) at 02/12/17 1122 Last data filed at 02/12/17 0535 Gross per 24 hour Intake 1104 ml Output 0 ml Net 1104 ml Patient Vitals for the past 96 hrs: Weight 02/11/172019 74.5 kg (164 lb 4.8 oz) Hemodynamics Last 24hrs: Review of systems as per Subjective compliant the rest non contrbutory Examination: HEENT-perrel NEck Supple no JVD, no L/N lung- BS++ no crepts No wheez heart S1 S2 no murmur abdomen- soft BS+ no tenderness no guarding Or rebound EXt no edema RECRUITMENT SPECIALIST alert no focality LABS: Recent Labs Lab 02/12/17 06 WBC 19.94* HGB 10.1* HCT 34.4 PLT 594* NEUTOPHILPCT 67.56 MONOPCT 6.87 Recent Labs Lab 02/12/17 0641 NA 137 K 5.3* CL 106 CO2 21* BUN 26* CREATININE 0.93 Phosphorus: Recent Labs Lab 02/12/17 0641 PHOS 2.9 Recent Labs Lab 02/12/17 0641 MG 2.1 No results for input(s): AMYLASE in the last 168 hours. No results for input(s): PHART, PO2ART, QYY4SIP, Y0MFMOZR, BEART in the last 168 hours. Recent Labs Lab 02/12/1764002/11/17 2140 APTT -- 27 INR 1.4 1.3 No results for input(s): TSH, T3FREE, FREET4 in the last 168 hours. No results for input(s): CKTOTAL, TROPONINI, TROPONINT, CKMBINDEX in the last 168 hours. PROBLEM LIST Principal Problem: Sepsis(995.91) due to UTI Active Problems: Crohn's disease (HCC) GERD (gastroesophageal reflux disease) HTN (hypertension) Chronic anticoagulation Hypertension Current chronic use of systemic steroids Neuropathy Encephalopathy in sepsis Immunosuppressed status (HCC) ASSESSMENT & PLAN Principal Problem: Sepsis(995.91) due to UTI as with history of in the vagina fistula and had several episodes of infection mostly urinary tract infection in the past. Urine cu lture and blood cultures IV levaquine 1 st day for now IV fluids WBC 19s moniter trend lactic 2.5 UC BC f/ up send out from [facility] ER C.Diff was negative delirium caution h/ Chron's Immunosuppression on chronic long-term steroids / Humira moniter BS as being on steriod as well severe protein lien malnutrition- TPN per phramcy order was on home TPN as well moniter electroltres chronic pain we discuss at length pain meds use in her case effect pain magt need in past help by MS IV as need for now and see clinical ly understand narcotic dept issue in her case also chronic pain Need to be tretaed 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 INR 1.4 today Coumadin 6 mg will rest art recheck INR on Tuesday GI pro I discuss case with her and her care plan At bedside MAKENZIE RAYMOND MD MD 02/12/2017 11:22 AM onversion Transac tion, Provider Unknown - 02/12/2017 5:19 AM PDTFormatting of this note might be different f rom the original. Progress Notes by Tanika Alaniz RN at 02/12/17518 Author: Tanika Alaniz RN Service: (none) Author Type: Registered Nurse Filed: 02/12/17523 Date of Service: 02/12/17518 Status: Signed Garbage Pick Up Worker: Tanika Alaniz RN (Registered Nurse) Pt received this shift from [facility] with UTI and complex GI hx. Pt groggy and letharg ic, but A+Ox4. Pt received fentanyl x3 for pain. Pt on personal TPN which she's had on for 3 -4 days for bowel rest. Urine cultures, blood cultures pending. C-diff negative, stools liqu id/mucousy. Note left for MD about nystatin for reddened reji area. Tanika Alaniz RN docume nted in this encounter H&P Notes Veena Tobar MD - 02/11/2017 9:54 PM PDTFormatting of this note might be different fro m the original. H&P by Veena Tobar MD at 02/11/172153 Author: Veena Tobar MD Service: (none) Author Type: Physician Filed: 02/11/172207 Date of Service: 02/11/172153 Status: Signed Garbage Pick Up Worker: Veena Tobar MD (Physician) [facility] Service: Hospitalist Admission History & Physical Date of Admission: 02/11/2017 CHIEF COMPLAINT: Weakness, nausea, vomiting, urinary incontinence HISTORY OF PRESENT ILLNESS The patient is a 61 y.o. female with significant past medical history of complicated Crohn 's disease status post partial bowel resection, on Humira and 15 mg of oral prednisone daily , history of anal vagina fistula, immunosuppressed status, history of splenectomy, history o f mesenteric vein thrombosis as well as deep vein thrombosis requiring chronic long-term ant icoagulation on Coumadin who presents to the Emergency Department in [place] with increasi ng nausea, vomiting and weakness. Patient had been on chronic narcotic pain medications and around 3-4 months ago was successfully weaned off all narcotics. Patient states that after t hat, she has been having chronic diarrhea. She follows up with Dr. Coburn for her Crohn' s disease. So as to give rest to her GI tract, he recommended going on TPN. Patient has a ch ronic long-term left chest port and was being used for TPN. She says that it was started trice und 3-4 days ago. Prior to that she was hydrated for about 6 days. Unfortunately shortly aft er the hydration, she became incontinent of urine and she thinks this is because of the exce ssive hydration. However with the starting of the TPN, she has been progressively getting mo re weak and today because of the nausea vomiting had to call the ambulance and come to the E R. She was thereafter transferred over to our facility for further care. Denies having any f ever. No other recent changes in medications as such. REVIEW OF SYSTEMS ROS obtained from patient. All 12 systems reviewed. No other positive pertinent findings n oted except for the ones mentioned above. Past Medical History Diagnosis Date CHF (congestive [...] severe tingling, shooting pain down leg Neuropathy Osteoporosis Other chronic pain Pyelonephritis Recurrent aphthous ulcer Sepsis (HCC) Past Surgical History Procedure Laterality Date ABDOMINAL SURGERY ANAL FISTULA SETON PLACEMENT N/A 10/17/2015 Procedure: ANAL FISTULA SETON PLACEMENT; Surgeon: Enrique Bocanegra MD; Location: [facility]; Service: General; Laterality: N/A; APPENDECTOMY CHOLECYSTECTOMY ESOPHAGOGASTRODUODENOSCOPY Left 08/06/2015 Procedure: ESOPHAGOGASTRODUODENOSCOPY; Surgeon: Sheng Rios MD; Location: [facility]; Service: Gastroenterology; Laterality: Left; ESOPHAGOGASTRODUODENOSCOPY N/A 04/21/2014 Procedure: ESOPHAGOGASTRODUODENOSCOPY; Surgeon: Bony Petty MD; Location: [facility] PROCEDURE; Service: Gastroenterology; Laterality: N/A; HYSTERECTOMY LAPAROTOMY N/A 04/23/2014 Procedure: EXPLORATION - LAPAROTOMY; Surgeon: Bogdan Moser DO; Location: [facility]; Service: General; Laterality: N/A; LYSIS OF ADHESIONS PORTACATH PLACEMENT Left SMALL INTESTINE SURGERY SPLENECTOMY, TOTAL N/A 04/23/2014 Procedure: SPLENECTOMY; Surgeon: Bogdan Moser DO; Location: [facility] MAIN OR; Service: General; Laterality: N/A; TONSILLECTOMY Allergies Allergen Reactions Demerol [Meperidine] Other (See Comments) Unknown Erythromycin Other (See Comments) unknown Levofloxacin Other (See Comments) tendinitis Reglan [Metoclopramide] Agitation Unknown Penicillins Nausea and Vomiting Prescriptions Prior to Admission Medication Sig Dispense Refill Last Dose fluconazole (DIFLUCAN) 150 MG tablet Take 150 mg by mouth as needed. Unknown furosemide (LASIX) 20 MG tablet Take 20 mg by mouth as needed. Taking gabapentin (NEURONTIN) 300 MG capsule Take 300 mg by mouth 3 (three) times daily. Stanton ing lactobacillus (FLORANEX) granules Take 1 packet by mouth 2 (two) times daily. 30 each 0 Taking LORazepam (ATIVAN) 0.5 MG tablet Take 0.5 mg by mouth every 6 (six) hours as needed for Anxiety. Taking metoprolol (LOPRESSOR) 25 MG tablet Take 2 tablets by mouth 2 (two) times daily. (Patie nt taking differently: Take 50 mg by mouth 2 (two) times daily. Indications: 50 mg bid) Ta laura morphine (MSIR) 15 MG tablet Take 1 tablet by mouth 5 (five) times daily. PRN 150 table t 0 Taking omeprazole (PRILOSEC) 40 MG capsule Take 40 mg by mouth 2 (two) times daily. Taking OXYCONTIN 20 MG 12 hr tablet Take 20 mg by mouth every 12 (twelve) hours. Taking potassium chloride (MICRO-K) 10 MEQ CR capsule Take 20 mEq by mouth as needed. Takes wh en takes furosemide Taking predniSONE (DELTASONE) 10 MG tablet Take 15 mg by mouth daily. Indications: 15 mg Stanton ing promethazine (PHENERGAN) 25 MG tablet Take 25 mg by mouth every 6 (six) hours as needed for Nausea. Taking warfarin (COUMADIN) 6 MG tablet Take 6 mg by mouth daily. Taking No family history on file. Social History Social History Marital status: Spouse [...] Social History Narrative No narrative on file PHYSICAL EXAM BP 136/59 (BP Location: Left upper arm) | Pulse 105 | Temp 98.2 F (36.8 C) (Oral) | Resp 24 | Ht 1.727 m (5' 8") | Wt 74.5 kg (164 lb 4.8 oz) | BMI 24.98 kg/m Patient is awake, alert, oriented to time, place and person, appears groggy and lethargic. Skin: Warm and supple Neck: No JVD Chest: Normal vesicular breath sounds, good air entry bilaterally CVS: S1S2 audible, no murmurs heard Abdomen: Soft, non tender, normal bowel sounds, no organomegaly Extremities: No pedal edema, clubbing or cyanosis Neurologic examination: No focal sensory or motor deficits Back examination: No CVA tenderness, no spinal tenderness DATA CT scan of the abdomen pelvis with contrast shows thickening of the wall of the colon from the level of the distal transverse colon to the rectum consistent with a history of Crohn's disease. Status post cholecystectomy, splenectomy, hysterectomy and partial bowel resection. CBC shows WBC count of 23.5, hemoglobin 11, hematocrit 35.6, platelet count is 438 Urinalysis shows positive for nitrite and esterase with 50+ WBC counts suggestive of urinar y tract infection. 1 dose of IV Levaquin was already given in the ER in [place]. Sodium level is 133, potassium 4.6, chloride 102, bicarbonate 18, calcium 9.9 creatinine 0. 79, BUN 24 ABG here does not show any acute critical findings. PT PTT and INR has been ordered and is pending. Septic lactic acid levels to be trended. PROBLEM LIST Principal Problem: Sepsis(995.91) due to UTI Active Problems: Crohn's disease (HCC) GERD (gastroesophageal reflux disease) HTN (hypertension) Chronic anticoagulation Hypertension Current chronic use of systemic steroids Neuropathy Encephalopathy in sepsis Immunosuppressed status (HCC) ASSESSMENT & PLAN As evident from the urinalysis, sepsis due to urinary tract infection very likely: Patient has had history of in the vagina fistula and had several episodes of infection mostly urinar y tract infection in the past. She is also immunosuppressed given that she is on chronic billy g-term steroids as well as Humira. Given the complexity of her situation, she was readily ad vised to be transferred over to our facility. Vitals for now are stable. She does have some tachycardia and tachypnea though. Generous IV fluids to be advised. Urine culture and blood cultures done at [place] to be followed. For now as per recommendations from Dr. Turner from infectious disease, patient to be started on IV Levaquin. Deep vein thrombosis prophylaxis: Not necessary as patient is already on Coumadin. Patient appears to be lethargic and may be encephalopathic from sepsis: Hence I will advise restricting all narcotic medications as well as benzodiazepines. May try prn fentanyl. Anyw ay patient had a long history of narcotic abuse and being hooked up to narcotics in the past which she successfully got weaned off and on 3-4 months ago. History of Crohn's disease complicated: She is chronically on Humira. We can hold it for no w. We will continue with the prednisone. Her abdomen is soft. Her diarrhea is chronic and ma y not be related to Crohn's flareup. She does have a history of C. difficile infection in e past. We will check for C. difficile infection and advise a contact precautions for now. F or now we will advise a clear liquid diet. Continue with gentle hydration for sepsis. May ne ed to evaluate for poor po intake with dietary and recommend on TPN if necessary. Chronic steroid use: We will continue with the same dose of steroids. She does not appear t o be an adrenal crisis at this time. Chronic anticoagulation use for Coumadin because of her multiple deep vein thromboses: We w ill check PT/INR daily. Advise Coumadin accordingly. Neuropathy: Continue with gabapentin. PPI for gastroesophageal reflux disease and also being on oral prednisone. Code Status: DNR/DNI Primary Care Physician: Neel Tobar MD 02/11/2017 documented in this e ncounter Consult Notes Conversion Transaction, Provider Unknown - 02/12/2017 2:33 PM PDTFormatting of this note m ight be different from the original. Consult* by Sanjuana Spivey RD at 02/12/17 8698 Author: Sanjuana Spivey RD Service: (none) Author Type: Registered Dietitian Filed: 02/12/17 7555 Date of Service: 11/04/17 1433 Status: Signed Garbage Pick Up Worker: Sanjuana Spivey RD (Registered Dietitian) 02/12/17 1429 Subjective Timepoint Follow up (consult) Pt c/o Consult received from pharmacy, pharmacy received information regarding home TPN. Diet Experience Home Nutrition Support Per pharmacy, home TPN is provided by [employer]. Home TPN consists of 100 g dextrose, 55 g AA, and 20 g lipids, which provides 760 kcal/day (10 kcal/k g and 0.74 g/kg pro). Recommendations Recommended parenteral nutritional needs for pharmacy Recommend TPN of D23, 6% AA with goal rate of 65 ml/hr plus 250 ml 20% lipids daily to provide 2094 kcal, 94 g pro, and 1810 ml t otal volume (28 kcal/kg and 1.26 g/kg pro based on admit wt of 74.5 kg). Home TPN providing <50% estimated kcal needs, suspect that home TPN was being advanced slowly as it just starte d 3-4 days ago. Advance slowly per pharmacy recommendations. Sanjuana Spivey RD Erin Roca DO - 02/12/2017 12:23 PM PDTFormatting of this note might be different from the briana ginal. Consult* by Erin Turner DO at 02/12/17 1223 Author: Erin Turner DO Service: (none) Author Type: Physician Filed: 02/12/17 1238 Date of Service: 02/12/17 1223 Status: Signed Garbage Pick Up Worker: Erin Turner DO (Physician) [facility] Service: Infectious Disease Initial Consult Note Date of Admission: 02/11/2017 Reason for Consultation: Weakness, possibly urinary tract infection, chronically immunosup pressed for Crohn's disease Requesting Physician: Denise Tobar History Obtained From: patient, chart review CHIEF COMPLAINT: Weakness HISTORY OF PRESENT ILLNESS The patient is 61 y.o. female with significant past medical history of fistulous Crohn's di sease, known rectovaginal fistula, currently on prednisone 15 mg daily in addition to Humira , currently receiving TPN via a Mediport, managed by Dr. Krishna who presents with several days of worsening weakness and fatigue, and initially presented to the emergency department at [facility] in [place]. Workup there did show significant pyuria, and she w as started on levofloxacin for urinary tract infection prior to transfer here. At the time o f arrival here, the patient did have a moderately elevated lactic acid level and appeared de hydrated, requiring IV fluids, but responded well to IV fluids and was able to admit to the medical floor. The patient reports that she feels slightly better today compared to when she went to the E R yesterday. She reports she has had frequent urinary tract infections in the past because o f her rectovaginal fistula, and has often had minimal symptoms as a warning sign. She did no t notice any specific changes in her urine or any dysuria prior to her current illness. She denies any cough or shortness of breath. She started her TPN about 3 days prior to admission , and started having diarrhea around the same time, even though her diarrhea had previously been well controlled with tincture of opium. REVIEW OF SYSTEMS Review of Systems Complete review of the constitutional, ENT, cardiovascular, respiratory, gastrointestinal, genitourinary, integumentary, musculoskeletal, psychiatric, neurologic, heme/lymphatic syste ms is entirely negative except as described above in the history of the present illness. Past Medical History Diagnosis Date CHF (congestive heart failure) ([facility]) happened after splenectomy Chronic diarrhea COPD (chronic obstructive pulmonary disease) ([facility]) Crohn's disease (HCC) Deep vein thrombosis (DVT) ([facility]) right leg and then travelled to spleen Depression E-coli UTI Embolism and thrombosis of splenic artery Gastroesophageal reflux disease with hiatal hernia GERD (gastroesophageal reflux disease) Hemorrhage of gastrointestinal tract, unspecified Hypertension Hypokalemia 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) Joint pain Microcytic anemia Neuromuscular disorder ([facility]) left leg numbness, severe tingling, shooting pain down leg Neuropathy Osteoporosis Other chronic pain Pyelonephritis Recurrent aphthous ulcer Sepsis ([facility]) Past Surgical History Procedure Laterality Date ABDOMINAL SURGERY ANAL FISTULA SETON PLACEMENT N/A 10/17/2015 Procedure: ANAL FISTULA SETON PLACEMENT; Surgeon: Enrique Bocanegra MD; Location: [facility] OR; Service: General; Laterality: N/A; APPENDECTOMY CHOLECYSTECTOMY ESOPHAGOGASTRODUODENOSCOPY Left 08/06/2015 Procedure: ESOPHAGOGASTRODUODENOSCOPY; Surgeon: Sheng Rios MD; Location: [facility]; Service: Gastroenterology; Laterality: Left; ESOPHAGOGASTRODUODENOSCOPY N/A 04/21/2014 Procedure: ESOPHAGOGASTRODUODENOSCOPY; Surgeon: Bony Petty MD; Location: [facility] BEDSIDE PROCEDURE; Service: Gastroenterology; Laterality: N/A; HYSTERECTOMY LAPAROTOMY N/A 04/23/2014 Procedure: EXPLORATION - LAPAROTOMY; Surgeon: Bogdan Moser DO; Location: [facility]; Service: General; Laterality: N/A; LYSIS OF ADHESIONS PORTACATH PLACEMENT Left SMALL INTESTINE SURGERY SPLENECTOMY, TOTAL N/A 04/23/2014 Procedure: SPLENECTOMY; Surgeon: Bogdan Moser DO; Location: [facility] MAIN OR; Service: General; Laterality: N/A; TONSILLECTOMY Allergies Allergen Reactions Demerol [Meperidine] Other (See Comments) Unknown Erythromycin Other (See Comments) unknown Levofloxacin Other (See Comments) tendinitis Reglan [Metoclopramide] Agitation Unknown Penicillins Nausea and Vomiting Prescriptions Prior to Admission Medication Sig Dispense Refill Last Dose fluconazole (DIFLUCAN) 150 MG tablet Take 150 mg by mouth as needed. Unknown furosemide (LASIX) 20 MG tablet Take 20 mg by mouth as needed. Taking gabapentin (NEURONTIN) 300 MG capsule Take 300 mg by mouth 3 (three) times daily. Stanton ing lactobacillus (FLORANEX) granules Take 1 packet by mouth 2 (two) times daily. 30 each 0 Taking LORazepam (ATIVAN) 0.5 MG tablet Take 0.5 mg by mouth every 6 (six) hours as needed for Anxiety. Taking metoprolol (LOPRESSOR) 25 MG tablet Take 2 tablets by mouth 2 (two) times daily. (Patie nt taking differently: Take 50 mg by mouth 2 (two) times daily. Indications: 50 mg bid) Ta laura morphine (MSIR) 15 MG tablet Take 1 tablet by mouth 5 (five) times daily. PRN 150 table t 0 Taking omeprazole (PRILOSEC) 40 MG capsule Take 40 mg by mouth 2 (two) times daily. Taking OXYCONTIN 20 MG 12 hr tablet Take 20 mg by mouth every 12 (twelve) hours. Taking potassium chloride (MICRO-K) 10 MEQ CR capsule Take 20 mEq by mouth as needed. Takes wh en takes furosemide Taking predniSONE (DELTASONE) 10 MG tablet Take 15 mg by mouth daily. Indications: 15 mg Stanton ing promethazine (PHENERGAN) 25 MG tablet Take 25 mg by mouth every 6 (six) hours as needed for Nausea. Taking warfarin (COUMADIN) 6 MG tablet Take 6 mg by mouth daily. Taking Scheduled Medications gabapentin 300 mg Oral TID lactobacillus 1 packet Oral BID levofloxacin 500 mg Intravenous Q24H metoprolol 50 mg Oral BID opium 6 mg Oral 4x Daily pantoprazole 40 mg Oral QAM AC predniSONE 15 mg Oral Daily warfarin 6 mg Oral Daily Continuous Infusions sodium chloride (IV) 110 mL/hr at 02/12/17 1006 PRN Medications acetaminophen OR acetaminophen, magnesium sulfate OR magnesium sulfate OR magne sium sulfate, morphine, ondansetron OR ondansetron, phosphorus OR sodium phosphate I VPB 15 mmol OR sodium phosphate IVPB 30 mmol, polyethylene glycol, zolpidem No family history on file. Social History Social History Marital status: Spouse [...] Social History Narrative No narrative on file PHYSICAL EXAM Vital Signs: BP 147/67 (BP Location: Left upper arm) | Pulse 76 | Temp 98.5 F (36.9 C) (Oral) | R dago 16 | Ht 1.727 m (5' 8") | Wt 74.5 kg (164 lb 4.8 oz) | SpO2 92% | BMI 24.98 kg/m Temp (24hrs), Av.1 F (36.7 C), Min:97.7 F (36.5 C), Max:98.5 F (36.9 C) Physical Exam Constitutional: The patient is in no acute distress and appears stated age. Vital signs wer e reviewed as above Head: Normocephalic and atraumatic ENT: Mucous membranes are moist. There is no evidence of thrush. No pharyngeal exudates. Left chest Mediport site unremarkable Neck: Supple without thyromegaly or meningismus. Heart: Regular rate and rhythm without murmurs gallops or rubs Lungs: Clear to auscultation bilaterally without wheezes rales or rhonchi. Abdomen: Soft, nontender, bowel sounds present. Musculoskeletal: There is no gross deformity or [...] CBC: Lab Results Component Value Date WBC 19.94 (H) 02/12/2017 RBC 4.73 02/12/2017 HGB 10.1 (L) 02/12/2017 HCT 34.4 02/12/2017 MCV 72.7 (L) 02/12/2017 MCH 21.4 (L) 02/12/2017 MCHC 29.5 (L) 02/12/2017 RDW 52.9 02/12/2017 PLT 594 (H) 02/12/2017 MPV 7.6 02/12/2017 DIFFTYPE AUTOMATED 02/12/2017 CMP: Lab Results Component Value Date NA 137 02/12/2017 K 5.3 (H) 02/12/2017 K 4.5 04/23/2014 CL 106 02/12/2017 CO2 21 (L) 02/12/2017 ANIONGAP 15 02/12/2017 GLUF 109 (H) 02/12/2017 BUN 26 (H) 02/12/2017 CREATININE 0.93 02/12/2017 BCR 28 02/12/2017 CA 8.6 02/12/2017 PROT 5.9 (L) 08/06/2015 ALB 2.9 (L) 08/06/2015 GLOB 3.0 08/06/2015 BILITOT 0.8 08/06/2015 ALP 148 (H) 08/06/2015 AST 34 08/06/2015 ALT 39 08/06/2015 EGFR >60 02/12/2017 White blood cell count was 23.5 when the patient presented to the outside hospital [facility]. Microbiology: Urine culture and blood cultures were collected at [facility] jesse or to transfer. Final reports will need to be requested, should be available by tomorrow. Medical imaging: CT scan of the abdomen and pelvis performed at the outside hospital was vi ewed in PACS and shows diffuse patchy thickening of the wall of the colon with no intra-abdo trini free air or free fluid, no signs of perforation. No perinephric fat stranding to my vi ew. Radiology report did not accompany the records on transfer and will need to be requested . Medical record review: I have reviewed the patient's admission history and physical as well as progress notes from the current hospital stay. Emergency department notes have also been reviewed. Much of this information is summarized above in history of present illness. PROBLEM LIST Principal Problem: Sepsis(995.91) due to UTI Active Problems: Crohn's disease (HCC) GERD (gastroesophageal reflux disease) HTN (hypertension) Chronic anticoagulation Hypertension Current chronic use of systemic steroids Neuropathy Encephalopathy in sepsis Immunosuppressed status (HCC) ASSESSMENT & PLAN Patient Active Hospital Problem List: Sepsis(995.91) due to UTI / Immunosuppressed status (07/19/2014) The patient presents with sepsis in the setting of immunosuppression, with workup thus fa r most suggestive of urinary tract infection. The patient received levofloxacin yesterday, a nd so far has had symptomatic improvement as well as decrease in her white blood cell count. Today's labs show no left shift. Continue Levaquin while awaiting urine and blood cultures from the outside hospital. Crohn's disease (HCC) (04/12/2014) The patient has recently been treated with Humira, prednisone, and tincture of opium. Encephalopathy in sepsis (02/11/2017) Improving, will continue to monitor. Code Status: DNR/DNI Primary Care Physician: Neel Fernandes Thank you for allowing me to participate in the care of this patient. I will continue to follow with you. ERIN TURNER DO 02/12/2017 documented in this enc ounter Miscellaneous Notes Plan of Care - Conversion Transaction, Provider Unknown - 02/15/2017 8:55 AM PST Plan of Care by Jhonny Jeong RN at 02/15/17854 Author: Jhonny Jeong RN Service: (none) Author Type: Registered Nurse Filed: 02/15/17854 Date of Service: 02/15/17854 Status: Signed Garbage Pick Up Worker: Jhonny Jeong RN (Registered Nurse) Problem: Pain Goal: Patient's pain/discomfort is manageable Assess and monitor patient's pain using appropriate pain scale. Collaborate with interdisci plinary team and initiate plan and interventions as ordered. Re-assess patient's pain level approximately 1-2 hours after pain management intervention. Premedicate as needed. Outcome: Progressing Pt will have pain in better controlled. Problem: Safety Goal: Patient will be injury [...] policy, and non-skid footwear provided. Outcome: Progressing Pt will call before getting out of bed. lan o f Care - Conversion Transaction, Provider Unknown - 02/14/2017 11:58 PM PSTFormatting of thi s note might be different from the original. Plan of Care by Linh Narayan RN at 02/14/17 6526 Author: Linh Narayan RN Service: (none) Author Type: Registered Nurse Filed: 02/14/17 1803 Date of Service: 02/14/172357 Status: Signed Garbage Pick Up Worker: Linh Narayan RN (Registered Nurse) Problem: Pain Goal: Patient's pain/discomfort is manageable Assess and monitor patient's pain using appropriate pain scale. Collaborate with interdisci plinary team and initiate plan and interventions as ordered. Re-assess patient's pain level approximately 1-2 hours after pain management intervention. Premedicate as needed. Outcome: Progressing MS given every 3 hrs for pain, pt report good relief Problem: Potential for Compromised Skin Integrity Goal: Skin integrity is maintained or improved Assess and monitor skin integrity. Identify patients at risk for skin breakdown on admissio n and per policy. Collaborate with interdisciplinary team and initiate plans and interventio ns as needed. Outcome: Progressing Pt has red area to reji and gluteus, zinc oxide applied brief changed as needed Problem: Nutrition Goal: Nutritional status is improving Monitor and assess patient for malnutrition (ex- brittle hair, bruises, dry skin, pale skin and conjunctiva, muscle wasting, smooth red tongue, and disorientation). Collaborate with i nterdisciplinary team and initiate plan and interventions as ordered. Monitor patient's mary ght and dietary intake as ordered or per policy. Utilize nutrition screening tool and interv dylan per policy. Determine patient's food preferences and provide high-protein, high-caloric foods as appropriate. Outcome: Progressing Pt's appetite is poor snacks offered often Comments: Pt has IV due tody, pt refused to let me try to start a new ones states, she is a hard stick and someone already tried and was unsuccessful, pt states she will allow PICC nu rse to start one with US. lan o f Care - Conversion Transaction, Provider Unknown - 02/14/2017 1:57 PM PSTFormatting of thi s note might be different from the original. Plan of Care by Catherine Bashir RN at 02/14/17 143 Author: Catherine Bashir RN Service: (none) Author Type: Registered Nurse Filed: 02/14/171356 Date of Service: 02/14/171356 Status: Signed Garbage Pick Up Worker: Catherine Bashir RN (Registered Nurse) Problem: Safety Goal: Patient [...] policy, and non-skid footwear provided. Outcome: Progressing Pt calls appropriately and demonstrates good body mechanics and safety awareness at all erin es and especially during transfers. lan o f Care - Conversion Transaction, Provider Unknown - 02/13/2017 10:49 PM PSTFormatting of thi s note might be different from the original. Plan of Care by Tanika Alaniz RN at 02/13/172248 Author: Tanika Alaniz RN Service: (none) Author Type: Registered Nurse Filed: 02/13/172248 Date of Service: 02/13/172248 Status: Signed Garbage Pick Up Worker: Tanika Alaniz RN (Registered Nurse) Problem: Pain Goal: Patient's pain/discomfort is manageable Assess and monitor patient's pain using appropriate pain scale. Collaborate with interdisci plinary team and initiate plan and interventions as ordered. Re-assess patient's pain level approximately 1-2 hours after pain management intervention. Premedicate as needed. Outcome: Progressing Pt receiving morphine q3h to manage pain, pt calls for pain medications appropriately. Problem: Psychosocial Needs Goal: Demonstrates ability to cope with hospitalization/illness Assess and monitor patients ability to cope with his/her illness. Outcome: Progressing Pt coping with illness and hospitalization. Discussed patient's feelings and concerns relat ed to hospitalization. lan o f Care - Conversion Transaction, Provider Unknown - 02/13/2017 8:43 AM PSTFormatting of thi s note might be different from the original. Plan of Care by Jhonny Jeong RN at 02/13/17842 Author: Jhonny Jeong RN Service: (none) Author Type: Registered Nurse Filed: 02/13/17 1644 Date of Service: 02/13/17842 Status: Signed Garbage Pick Up Worker: Jhonny Jeong RN (Registered Nurse) Pt will call before getting out of bed and reports for pain to get better control. Pt medi cated with Morphine q3h along with scheduled meds. Appears to be comfortable. Vital signs st able otherwise. lan o f Care - Conversion Transaction, Provider Unknown - 02/12/2017 11:41 PM PDTFormatting of thi s note might be different from the original. Plan of Care by Tanika Alaniz RN at 02/12/172340 Author: Tanika Alaniz RN Service: (none) Author Type: Registered Nurse Filed: 02/12/172340 Date of Service: 02/12/172340 Status: Signed Garbage Pick Up Worker: Tanika N Jansons, RN (Registered Nurse) Problem: Pain Goal: Patient's pain/discomfort is manageable Assess and monitor patient's pain using appropriate pain scale. Collaborate with interdisci plinary team and initiate plan and interventions as ordered. Re-assess patient's pain level approximately 1-2 hours after pain management intervention. Premedicate as needed. Outcome: Progressing Pt pain managed with morphine, pt calls when pain begins to increase. Problem: Daily Care Goal: Daily care needs are met Assess and monitor ability to perform self care and identify potential discharge needs. Outcome: Progressing Pt needs set up for daily cares, assistance available if needed. lan o f Care - Conversion Transaction, Provider Unknown - 02/12/2017 3:08 PM PDTFormatting of mendy s note might be different from the original. Plan of Care by Irene Ramon RN at 02/12/17 1508 Author: Irene Ramon RN Service: (none) Author Type: Registered Nurse Filed: 02/12/17 151 Date of Service: 02/12/171507 Status: Signed Garbage Pick Up Worker: Irene Ramon RN (Registered Nurse) Problem: Pain Goal: Patient's pain/discomfort is manageable Assess and monitor patient's pain using appropriate pain scale. Collaborate with interdisci plinary team and initiate plan and interventions as ordered. Re-assess patient's pain level approximately 1-2 hours after pain management intervention. Premedicate as needed. Outcome: Progressing Pt reporting pain is not being controlled this morning. RN discussed with MD. See orders, s ee MAR. Pt continues to report pain is uncontrolled in afternoon, MD notified. See orders, s ee MAR. Comments: Pt continues to be incontinent of bowel and bladder. Pt uses call light appropria tely. Rounded on hourly and needs addressed. Pt's opium tincture taken to pharmacy for dispe nsing, pt and pt's aware of policy on dispensing and handling of opium. VSS. Irene garcia RN lan o f Care - Conversion Transaction, Provider Unknown - 02/12/2017 2:17 AM PDTFormatting of mendy s note might be different from the original. Plan of Care by Tanika Alaniz RN at 02/12/17216 Author: Tanika Alaniz RN Service: (none) Author Type: Registered Nurse Filed: 02/12/17216 Date of Service: 02/12/17216 Status: Signed Garbage Pick Up Worker: Tanika Alaniz RN (Registered Nurse) Problem: Pain Goal: Patient's pain/discomfort is manageable Assess and monitor patient's pain using appropriate pain scale. Collaborate with interdisci plinary team and initiate plan and interventions as ordered. Re-assess patient's pain level approximately 1-2 hours after pain management intervention. Premedicate as needed. Outcome: Progressing Pt requests pain meds when necessary, uses call light appropriately. Problem: Safety Goal: Patient will be injury [...] policy, and non-skid footwear provided. Outcome: Progressing Pt remains injury free, uses call light when she needs something. docume nted in this encounter Plan of Treatment Not on filedocumented as of this encounter Procedures + +--------+ + + + | Procedure Name | Priori | Date/Time | Associated Diagnosis | Comments | | | ty | | | | + +--------+ + + + | POC GLUCOSE | Routin | 02/15/2017 | | Results for this | | | e | 10:52 AM | | procedure are in the | | | | PST | | results section. | + +--------+ + + + | POC GLUCOSE | Routin | 02/15/2017 | | Results for this | | | e | 5:46 AM | | procedure are in the | | | | PST | | results section. | + +--------+ + + + | EXTERNAL LAB: CBC | Routin | 02/15/2017 | | Results for this | | | e | 4:28 AM | | procedure are in the | | | | PST | | results section. | + +--------+ + + + | PROTIME INR | Routin | 02/15/2017 | | Results for this | | | e | 4:28 AM | | procedure are in the | | | | PST | | results section. | + +--------+ + + + | PHOSPHORUS | Routin | 02/15/2017 | | Results for this | | | e | 4:28 AM | | procedure are in the | | | | PST | | results section. | + +--------+ + + + | MAGNESIUM | Routin | 02/15/2017 | | Results for this | | | e | 4:28 AM | | procedure are in the | | | | PST | | results section. | + +--------+ + + + | BASIC METABOLIC | Routin | 02/15/2017 | | Results for this | | PANEL | e | 4:28 AM | | procedure are in the | | | | PST | | results section. | + +--------+ + + + | POC GLUCOSE | Routin | 02/15/2017 | | Results for this | | | e | 12:20 AM | | procedure are in the | | | | PST | | results section. | + +--------+ + + + | POC GLUCOSE | Routin | 02/14/2017 | | Results for this | | | e | 7:59 PM | | procedure are in the | | | | PST | | results section. | + +--------+ + + + | POC GLUCOSE | Routin | 02/14/2017 | | Results for this | | | e | 5:29 PM | | procedure are in the | | | | PST | | results section. | + +--------+ + + + | POC GLUCOSE | Routin | 02/14/2017 | | Results for this | | | e | 11:48 AM | | procedure are in the | | | | PST | | results section. | + +--------+ + + + | POC GLUCOSE | Routin | 02/14/2017 | | Results for this | | | e | 5:47 AM | | procedure are in the | | | | PST | | results section. | + +--------+ + + + | EXTERNAL LAB: CBC | Routin | 02/14/2017 | | Results for this | | | e | 5:08 AM | | procedure are in the | | | | PST | | results section. | + +--------+ + + + | PROTIME INR | Routin | 02/14/2017 | | Results for this | | | e | 5:08 AM | | procedure are in the | | | | PST | | results section. | + +--------+ + + + | PHOSPHORUS | Routin | 02/14/2017 | | Results for this | | | e | 5:08 AM | | procedure are in the | | | | PST | | results section. | + +--------+ + + + | MAGNESIUM | Routin | 02/14/2017 | | Results for this | | | e | 5:08 AM | | procedure are in the | | | | PST | | results section. | + +--------+ + + + | BASIC METABOLIC | Routin | 02/14/2017 | | Results for this | | PANEL | e | 5:08 AM | | procedure are in the | | | | PST | | results section. | + +--------+ + + + | POC GLUCOSE | Routin | 02/14/2017 | | Results for this | | | e | 12:49 AM | | procedure are in the | | | | PST | | results section. | + +--------+ + + + | POC GLUCOSE | Routin | 02/13/2017 | | Results for this | | | e | 6:05 PM | | procedure are in the | | | | PST | | results section. | + +--------+ + + + | POC GLUCOSE | Routin | 02/13/2017 | | Results for this | | | e | 12:04 PM | | procedure are in the | | | | PST | | results section. | + +--------+ + + + | TRIGLYCERIDES | Routin | 02/13/2017 | | Results for this | | | e | 6:35 AM | | procedure are in the | | | | PST | | results section. | + +--------+ + + + | PREALBUMIN | Routin | 02/13/2017 | | Results for this | | | e | 6:35 AM | | procedure are in the | | | | PST | | results section. | + +--------+ + + + | POC GLUCOSE | Routin | 02/13/2017 | | Results for this | | | e | 6:09 AM | | procedure are in the | | | | PST | | results section. | + +--------+ + + + | CALCIUM, IONIZED | Routin | 02/13/2017 | | Results for this | | | e | 5:15 AM | | procedure are in the | | | | PST | | results section. | + +--------+ + + + | EXTERNAL LAB: CBC | Routin | 02/13/2017 | | Results for this | | | e | 5:09 AM | | procedure are in the | | | | PST | | results section. | + +--------+ + + + | PATHOLOGY CONSULT | Routin | 02/13/2017 | | Results for this | | REQUEST | e | 5:09 AM | | procedure are in the | | | | PST | | results section. | + +--------+ + + + | PROTIME INR | Routin | 02/13/2017 | | Results for this | | | e | 5:09 AM | | procedure are in the | | | | PST | | results section. | + +--------+ + + + | PHOSPHORUS | Routin | 02/13/2017 | | Results for this | | | e | 5:09 AM | | procedure are in the | | | | PST | | results section. | + +--------+ + + + | MAGNESIUM | Routin | 02/13/2017 | | Results for this | | | e | 5:09 AM | | procedure are in the | | | | PST | | results section. | + +--------+ + + + | COMPREHENSIVE | Routin | 02/13/2017 | | Results for this | | METABOLIC PANEL | e | 5:09 AM | | procedure are in the | | | | PST | | results section. | + +--------+ + + + | POC GLUCOSE | Routin | 02/13/2017 | | Results for this | | | e | 12:30 AM | | procedure are in the | | | | PDT | | results section. | + +--------+ + + + | POC GLUCOSE | Routin | 02/12/2017 | | Results for this | | | e | 5:44 PM | | procedure are in the | | | | PDT | | results section. | + +--------+ + + + | POC GLUCOSE | Routin | 02/12/2017 | | Results for this | | | e | 2:12 PM | | procedure are in the | | | | PDT | | results section. | + +--------+ + + + | EXTERNAL LAB: CBC | Routin | 02/12/2017 | | Results for this | | | e | 6:41 AM | | procedure are in the | | | | PDT | | results section. | + +--------+ + + + | PROTIME INR | Routin | 02/12/2017 | | Results for this | | | e | 6:41 AM | | procedure are in the | | | | PDT | | results section. | + +--------+ + + + | PHOSPHORUS | Routin | 02/12/2017 | | Results for this | | | e | 6:41 AM | | procedure are in the | | | | PDT | | results section. | + +--------+ + + + | MAGNESIUM | Routin | 02/12/2017 | | Results for this | | | e | 6:41 AM | | procedure are in the | | | | PDT | | results section. | + +--------+ + + + | BASIC METABOLIC | Routin | 02/12/2017 | | Results for this | | PANEL | e | 6:41 AM | | procedure are in the | | | | PDT | | results section. | + +--------+ + + + | HISTORICAL | Timed | 02/12/2017 | | Results for this | | MICROBIOLOGY RESULT | | 2:55 AM | | procedure are in the | | | | PDT | | results section. | + +--------+ + + + | LACTIC ACID | Routin | 02/12/2017 | | Results for this | | | e | 12:59 AM | | procedure are in the | | | | PDT | | results section. | + +--------+ + + + | LACTIC ACID | Routin | 02/11/2017 | | Results for this | | | e | 10:18 PM | | procedure are in the | | | | PDT | | results section. | + +--------+ + + + | PTT | Routin | 02/11/2017 | | Results for this | | | e | 9:40 PM | | procedure are in the | | | | PDT | | results section. | + +--------+ + + + | PROTIME INR | Routin | 02/11/2017 | | Results for this | | | e | 9:40 PM | | procedure are in the | | | | PDT | | results section. | + +--------+ + + + documented in this encounter Results POC Glucose (02/15/2017 10:52 AM PST) + + + + + + | Component | Value | Ref Range | Performed | Pathologist | | | | | At | Signature | + + + + + + | Glucose, | 123 (H)Comment: Testing | 65 - 99 mg/dL | EXTERNAL | | | Fingerstick | performed at [facility] | | LAB | | | | [address];[place], [place] | | | | | | [address] | | | | + + + + + + + + | Specimen | + + | | + + + +---------+ + + | Performing | Address | City/State/Zipcode | Phone Number | | Organization | | | | + +---------+ + + | EXTERNAL LAB | | | | + +---------+ + + POC Glucose (02/15/2017 5:46 AM PST) + + + + + + | Component | Value | Ref Range | Performed | Pathologist | | | | | At | Signature | + + + + + + | Glucose, | 104 (H)Comment: Testing | 65 - 99 mg/dL | EXTERNAL | | | Fingerstick | performed at [facility] | | LAB | | | | [address];[place] | | | | | | [address] | | | | + + + + + + + + | Specimen | + + | | + + + +---------+ + + | Performing | Address | City/State/Zipcode | Phone Number | | Organization | | | | + +---------+ + + | EXTERNAL LAB | | | | + +---------+ + + Protime INR (02/15/2017 4:28 AM PST) + + + + + [...] [facility] | | | | | | [facility];[place], [place] | | | | | | [address] | | | | + + + [...] + +---------+ + + External Lab: CBC (02/15/2017 4:28 AM PST) + + + + + + | Component | Value | Ref Range | Performed | Pathologist | | | | | At | Signature | + + + + + + | WBC | 17.40 (H) | 3.80 - 11.00 | EXTERNAL | | | | | K/uL | LAB | | + + + + + + | Non- | 3.89 | 3.70 - 5.10 | EXTERNAL | | | Red Blood | | M/uL | LAB | | | Cells | | | | | | Counted | | | | | + + + + + + | Hemoglobin | 8.6 (L) | 11.3 - 15.5 | EXTERNAL | | | | | g/dL | LAB | | + + + + + + | Hematocrit, | 28.8 (L) | 34.0 - 46.0 % | EXTERNAL | | | POC | | | LAB | | + + + + + + | MCV | 74.0 (L) | 80.0 - 100.0 fl | EXTERNAL | | | | | | LAB | | + + + + + + | MCH | 22.2 (L) | 27.0 - 34.0 pg | EXTERNAL | | | | | | LAB | | + + + + + + | MCHC | 30.0 (L) | 32.0 - 35.5 | EXTERNAL | | | | | g/dL | LAB | | + + + + + + | RDW-CV | 54.3 (H) | 37 - 53 fl | EXTERNAL | | | | | | LAB | | + + + + + + | Platelet | 499 (H) | 150 - 400 K/uL | EXTERNAL | | | Count | | | LAB | | | Plasma | | | | | + + + + + + | MPV | 7.9 | fl | EXTERNAL | | | | | | LAB | | + + + + + + | Differentia | MANUAL | | EXTERNAL | | | l Type | | | LAB | | + + + + + + | Segmented | 41 | % | EXTERNAL | | | Neutrophils | | | LAB | | | Manual | | | | | + + + + + + | Lymphocytes | 50 | % | EXTERNAL | | | Manual | | | LAB | | + + + + + + | Monocytes | 8 | % | EXTERNAL | | | Manual | | | LAB | | + + + + + + | Eosinophils | 1 | % | EXTERNAL | | | Manual | | | LAB | | + + + + + + | Absolute | 7.13 | 1.90 - 7.40 | EXTERNAL | | | Neutrophils | | K/uL | LAB | | + + + + + + | Absolute | 8.71 (H) | 1.00 - 3.90 | EXTERNAL | | | Lymphocytes | | K/uL | LAB | | + + + + + + | Absolute | 1.39 (H) | 0.00 - 0.80 | EXTERNAL | | | Monocytes | | K/uL | LAB | | + + + + + + | Absolute | 0.17 | 0.00 - 0.50 | EXTERNAL | | | Eosinophils | | K/uL | LAB | | + + + + + + | Platelet | INCREASED | | EXTERNAL | | | Estimate | | | LAB | | + + + + + + | RBC | 2+Comment: | | EXTERNAL | | | Morphology | MICRO1+ANISO2+HYPO1+TARG | | LAB | | | | ET1+OVALOTesting | | | | | | performed at [facility];[address] | | | | | | [facility];[place], [place] | | | | | | [address] | | | | | |HYPO | | | | | |1+ | | | | | |TARGET | | | | | |1+ | | | | | |OVALO | | | | | |Testing performed at [facility];[address] [facility];[place] [address] | | | | | | | [...] | | + +---------+ + + Phosphorus (02/15/2017 4:28 AM PST) + + + + + [...] | LAB | | | | [address];[place], [place] | | | | | | [address] | | | | + + + + + + + + | Specimen | + + | Blood specimen | | (specimen) | + + + +---------+ + + | Performing | Address | City/State/Zipcode | Phone Number | | Organization | | | | + +---------+ + + | EXTERNAL LAB | | | | + +---------+ + + Magnesium (02/15/2017 4:28 AM PST) + + + + + [...] [place] | | | | | | [address] | | | | + + + [...] + +---------+ + + Basic Metabolic Panel (02/15/2017 4:28 AM PST) + + + + + + | Component | Value | Ref Range | Performed | Pathologist | | | | | At | Signature | + + + + + + | Na | 140 | 135 - 145 | EXTERNAL | | | | | mmol/L | LAB | | + + + + + + | K | 3.6 | 3.5 - 4.9 | EXTERNAL | | | | | mmol/L | LAB | | + + + + + + | Cl | 107 | 99 - 109 mmol/L | EXTERNAL [...] + + + + | Glucose, | 98 | 65 - 99 mg/dL | EXTERNAL | | | Fasting | | | LAB | | + + + + + + | BUN | 13 | 8 - 25 mg/dL | EXTERNAL | | | | | | LAB | | + + + + + + | Creatinine | 0.56 | 0.50 - 1.00 | EXTERNAL | | | | | mg/dL | LAB | | + + + + + + | BUN/Creatin | 22 | | EXTERNAL | | | ine Ratio | | | LAB | | + + + + + + | Calcium | 7.7 (L) | 8.5 - 10.5 | EXTERNAL [...] | at [facility];[address] [place] [address] | | | | | | [facility];[place] [address] | | | | + + + + + + + + | Specimen | + + | Blood specimen | | (specimen) | + + + +---------+ + + | Performing | Address | City/State/Zipcode | Phone Number | | Organization | | | | + +---------+ + + | EXTERNAL LAB | | | | + +---------+ + + POC Glucose (02/15/2017 12:20 AM PST) + + + + + + | Component | Value | Ref Range | Performed | Pathologist | | | | | At | Signature | + + + + + + | Glucose, | 105 (H)Comment: Testing | 65 - 99 mg/dL | EXTERNAL | | | Fingerstick | performed at [facility];[address] | | LAB | | | | [address];[place] | | | | | | [address] | | | | + + + + + + + + | Specimen | + + | | + + + +---------+ + + | Performing | Address | City/State/Zipcode | Phone Number | | Organization | | | | + +---------+ + + | EXTERNAL LAB | | | | + +---------+ + + POC Glucose (02/14/2017 7:59 PM PST) + + + + + + | Component | Value | Ref Range | Performed | Pathologist | | | | | At | Signature | + + + + + + | Glucose, | 104 (H)Comment: Testing | 65 - 99 mg/dL | EXTERNAL | | | Fingerstick | performed at [facility];[address] | | LAB | | | | [address];[place], [place] | | | | | | [address] | | | | + + + + + + + + | Specimen | + + | | + + + +---------+ + + | Performing | Address | City/State/Zipcode | Phone Number | | Organization | | | | + +---------+ + + | EXTERNAL LAB | | | | + +---------+ + + POC Glucose (02/14/2017 5:29 PM PST) + + + + + + | Component | Value | Ref Range | Performed | Pathologist | | | | | At | Signature | + + + + + + | Glucose, | 120 (H)Comment: Testing | 65 - 99 mg/dL | EXTERNAL | | | Fingerstick | performed at [facility];[address] | | LAB | | | | [address];[place] | | | | | | [address] | | | | + + + + + + + + | Specimen | + + | | + + + +---------+ + + | Performing | Address | City/State/Zipcode | Phone Number | | Organization | | | | + +---------+ + + | EXTERNAL LAB | | | | + +---------+ + + POC Glucose (02/14/2017 11:48 AM PST) + + + + + + | Component | Value | Ref Range | Performed | Pathologist | | | | | At | Signature | + + + + + + | Glucose, | 117 (H)Comment: Testing | 65 - 99 mg/dL | EXTERNAL | | | Fingerstick | performed at [facility];[address] | | LAB | | | | [address];[place] | | | | | | [address] | | | | + + + + + + + + | Specimen | + + | | + + + +---------+ + + | Performing | Address | City/State/Zipcode | Phone Number | | Organization | | | | + +---------+ + + | EXTERNAL LAB | | | | + +---------+ + + POC Glucose (02/14/2017 5:47 AM PST) + + + + + + | Component | Value | Ref Range | Performed | Pathologist | | | | | At | Signature | + + + + + + | Glucose, | 95Comment: Testing | 65 - 99 mg/dL | EXTERNAL | | | Fingerstick | performed at [facility];[address] | | LAB | | | | [address];[place] | | | | | | [address] | | | | + + + + + + + + | Specimen | + + | | + + + +---------+ + + | Performing | Address | City/State/Zipcode | Phone Number | | Organization | | | | + +---------+ + + | EXTERNAL LAB | | | | + +---------+ + + Protime INR (02/14/2017 5:08 AM PST) + + + + [...] | | | | | | [address];[place], [place] | | | | | | [address] | | | | + + + [...] + +---------+ + + External Lab: CBC (02/14/2017 5:08 AM PST) + + + + + + | Component | Value | Ref Range | Performed | Pathologist | | | | | At | Signature | + + + + + + | WBC | 17.18 (H) | 3.80 - 11.00 | EXTERNAL | | | | | K/uL | LAB | | + + + + + + | Non- | 4.03 | 3.70 - 5.10 | EXTERNAL | | | Red Blood | | M/uL | LAB | | | Cells | | | | | | Counted | | | | | + + + + + + | Hemoglobin | 8.6 (L) | 11.3 - 15.5 | EXTERNAL | | | | | g/dL | LAB | | + + + + + + | Hematocrit, | 29.3 (L) | 34.0 - 46.0 % | EXTERNAL | | | POC | | | LAB | | + + + + + + | MCV | 72.7 (L) | 80.0 - 100.0 fl | EXTERNAL | | | | | | LAB | | + + + + + + | MCH | 21.3 (L) | 27.0 - 34.0 pg | EXTERNAL | | | | | | LAB | | + + + + + + | MCHC | 29.3 (L) | 32.0 - 35.5 | EXTERNAL | | | | | g/dL | LAB | | + + + + + + | RDW-CV | 53.8 (H) | 37 - 53 fl | EXTERNAL | | | | | | LAB | | + + + + + + | Platelet | 489 (H) | 150 - 400 K/uL | EXTERNAL | | | Count | | | LAB | | | Plasma | | | | | + + + + + + | MPV | 7.5 | fl | EXTERNAL | | | | | | LAB | | + + + + + + | Differentia | MANUAL | | EXTERNAL | | | l Type | | | LAB | | + + + + + + | Segmented | 53 | % | EXTERNAL | | | Neutrophils | | | LAB | | | Manual | | | | | + + + + + + | Lymphocytes | 27 | % | EXTERNAL | | | Manual | | | LAB | | + + + + + + | Monocytes | 17 | % | EXTERNAL | | | Manual | | | LAB | | + + + + + + | Eosinophils | 3 | % | EXTERNAL | | | Manual | | | LAB | | + + + + + + | Absolute | 9.10 (H) | 1.90 - 7.40 | EXTERNAL | | | Neutrophils | | K/uL | LAB | | + + + + + + | Absolute | 4.64 (H) | 1.00 - 3.90 | EXTERNAL | | | Lymphocytes | | K/uL | LAB | | + + + + + + | Absolute | 2.92 (H) | 0.00 - 0.80 | EXTERNAL | | | Monocytes | | K/uL | LAB | | + + + + + + | Absolute | 0.52 (H) | 0.00 - 0.50 | EXTERNAL | | | Eosinophils | | K/uL | LAB | | + + + + + + | RBC | 2+Comment: | | EXTERNAL | | | Morphology | MICRO2+HYPO2+ANISO1+OVAL | | LAB | | | | O1+TARGETNORMAL PLT | | | | | | MORPHTesting performed | | | | | | at [facility];[address];[place] [address] | | | | | |ANISO | | | | | |1+ | | | | | |OVALO | | | | | |1+ | | | | | |TARGET | | | | | |NORMAL PLT MORPH | | | | | |Testing performed at [facility];[address] [place] [address];[place] [address] | | | | | | | [...] | | + +---------+ + + Phosphorus (02/14/2017 5:08 AM PST) + + + + [...] | LAB | | | | [address];[place] | | | | | | [address] | | | | + + + + + + + + | Specimen | + + | Blood specimen | | (specimen) | + + + +---------+ + + | Performing | Address | City/State/Zipcode | Phone Number | | Organization | | | | + +---------+ + + | EXTERNAL LAB | | | | + +---------+ + + Magnesium (02/14/2017 5:08 AM PST) + + + + + + | Component | Value | Ref Range | Performed | Pathologist | | | | | At | Signature | + + + + + + | Magnesium | 1.7Comment: SLT | 1.7 - 2.4 mg/dL | EXTERNAL | | | | HEMOLYSISTesting | | LAB | | | | performed at [facility];[address] | | | | | | [address];[place], [place] | | | | | | [address] | | | | + + + [...] + +---------+ + + Basic Metabolic Panel (02/14/2017 5:08 AM PST) + + + + [...] + + + | K | 3.7Comment: SLT | 3.5 - 4.9 | EXTERNAL | | | | HEMOLYSIS | mmol/L | LAB | | + + + + + + | Cl | 109 | 99 - 109 mmol/L | EXTERNAL | | | | | | LAB | | + + + + + + | CO2 | 24 | 23 - 32 mmol/L | EXTERNAL | | | | | | LAB | | + + + + + + | Anion Gap | 11 | 5 - 20 mmol/L | EXTERNAL | | | | | | LAB | | + + + + + + | Glucose, | 95 | 65 - 99 mg/dL | EXTERNAL | | | Fasting | | | LAB | | + + + + + + | BUN | 13 | 8 - 25 mg/dL | EXTERNAL | | | | | | LAB | | + + + + + + | Creatinine | 0.62 | 0.50 - 1.00 | EXTERNAL | | | | | mg/dL | LAB | | + + + + + + | BUN/Creatin | 21 | | EXTERNAL | | | ine Ratio | | | LAB | | + + + + + + | Calcium | 7.2 (L) | 8.5 - 10.5 | EXTERNAL [...] | at [facility];[address] [place] [address] | | | | | | [facility];[place] [address] | | | | + + + + + + + + | Specimen | + + | Blood specimen | | (specimen) | + + + +---------+ + + | Performing | Address | City/State/Zipcode | Phone Number | | Organization | | | | + +---------+ + + | EXTERNAL LAB | | | | + +---------+ + + POC Glucose (02/14/2017 12:49 AM PST) + + + + + + | Component | Value | Ref Range | Performed | Pathologist | | | | | At | Signature | + + + + + + | Glucose, | 100 (H)Comment: Testing | 65 - 99 mg/dL | EXTERNAL | | | Fingerstick | performed at [facility];[address] | | LAB | | | | [address];[place] | | | | | | [address] | | | | + + + + + + + + | Specimen | + + | | + + + +---------+ + + | Performing | Address | City/State/Zipcode | Phone Number | | Organization | | | | + +---------+ + + | EXTERNAL LAB | | | | + +---------+ + + POC Glucose (02/13/2017 6:05 PM PST) + + + + + + | Component | Value | Ref Range | Performed | Pathologist | | | | | At | Signature | + + + + + + | Glucose, | 142 (H)Comment: Testing | 65 - 99 mg/dL | EXTERNAL | | | Fingerstick | performed at [facility];[address] | | LAB | | | | [address];[place], [place] | | | | | | [address] | | | | + + + + + + + + | Specimen | + + | | + + + +---------+ + + | Performing | Address | City/State/Zipcode | Phone Number | | Organization | | | | + +---------+ + + | EXTERNAL LAB | | | | + +---------+ + + POC Glucose (02/13/2017 12:04 PM PST) + + + + + + | Component | Value | Ref Range | Performed | Pathologist | | | | | At | Signature | + + + + + + | Glucose, | 164 (H)Comment: Testing | 65 - 99 mg/dL | EXTERNAL | | | Fingerstick | performed at [facility];[address] | | LAB | | | | [address];[place], [place] | | | | | | [address] | | | | + + + + + + + + | Specimen | + + | | + + + +---------+ + + | Performing | Address | City/State/Zipcode | Phone Number | | Organization | | | | + +---------+ + + | EXTERNAL LAB | | | | + +---------+ + + Triglycerides (02/13/2017 6:35 AM PST) + + + + + + | Component | Value | Ref Range | Performed | Pathologist | | | | | At | Signature | + + + + + + | Triglycerid | 235 (H)Comment: Testing | mg/dL | EXTERNAL | | | es | performed at [facility], [address] | | LAB | | | | [address], | | | | | | [place] [address] | | | | + + + + + + + + | Specimen | + + | | + + + +---------+ + + | Performing | Address | City/State/Zipcode | Phone Number | | Organization | | | | + +---------+ + + | EXTERNAL LAB | | | | + +---------+ + + Prealbumin (02/13/2017 6:35 AM PST) + + + + + + | Component | Value | Ref Range | Performed | Pathologist | | | | | At | Signature | + + + + + + | Prealbumin | 24.7Comment: Testing | 20.0 - 40.0 | EXTERNAL | | | | performed at [facility], [address] | mg/dL | LAB | | | | [address], | | | | | | [place] [address] | | | | + + + + + + + + | Specimen | + + | | + + + +---------+ + + | Performing | Address | City/State/Zipcode | Phone Number | | Organization | | | | + +---------+ + + | EXTERNAL LAB | | | | + +---------+ + + POC Glucose (02/13/2017 6:09 AM PST) + + + + + + | Component | Value | Ref Range | Performed | Pathologist | | | | | At | Signature | + + + + + + | Glucose, | 88Comment: Testing | 65 - 99 mg/dL | EXTERNAL | | | Fingerstick | performed at [facility];[address] | | LAB | | | | [address];[place], [place] | | | | | | [address] | | | | + + + + + + + + | Specimen | + + | | + + + +---------+ + + | Performing | Address | City/State/Zipcode | Phone Number | | Organization | | | | + +---------+ + + | EXTERNAL LAB | | | | + +---------+ + + Calcium, Ionized (02/13/2017 5:15 AM PST) + + + + + + | Component | Value | Ref Range | Performed | Pathologist | | | | | At | Signature | + + + + + + | Calcium | 1.15 | 1.08 - 1.25 | EXTERNAL | | | (Calc) | | mmol/L | LAB | | + + + + + + | pH, Bld | 7.428Comment: Testing | 7.300 - 7.450 | EXTERNAL | | | | performed at [facility];[address] | | LAB | | | | [address];[place], [place] | | | | | | [address] | | | | + + + [...] + +---------+ + + PATHOLOGY CONSULT REQUEST (02/13/2017 5:09 AM PST) + + + + + + | Component | Value | Ref Range | Performed | Pathologist | | | | | At | Signature | + + + + + + | Pathologist | Comment: Review of CBC | | EXTERNAL | | | Review 1 | collected 02/13/2017. I | | LAB | | | | agree with the automated | | | | | | and manual cell counts. | | | | | | The presence of anemia, | | | | | | neutrophilia and | | | | | | thrombophilia is | | | | | | confirmed. The | | | | | | neutrophils show a left | | | | | | shift with mild toxic | | | | | | changes. The anemia is | | | | | | hypochromic and | | | | | | microcytic, consistent | | | | | | with iron deficiency or | | | | | | chronic disease. | | | | | | Occasional NRBC's are | | | | | | present. The platelets | | | | | | are increased in number. | | | | | | A portion of the | | | | | | patient's recent medical | | | | | | records are reviewed. | | | | | | The history of UTI and | | | | | | immunosuppression is | | | | | | noted. The features are | | | | | | consistent with the | | | | | | patient's history of | | | | | | sepsis. Please correlate | | | | | | clinically. Dr. Méndez | | | | | | Backer 02/14/2017 | | | | | | AMB/emb Testing | | | | | | performed at [facility] | | | | | | [facility];[place], [place] | | | | | | [address] | | | | + + + + + + + + | Specimen | + + | | + + + +---------+ + + | Performing | Address | City/State/[facility] | Phone Number | | Organization | | | | + +---------+ + + | EXTERNAL LAB | | | | + +---------+ + + Protime INR (02/13/2017 5:09 AM PST) + + + + + [...] [place] | | | | | | [address] | | | | + + + [...] + +---------+ + + External Lab: CBC (02/13/2017 5:09 AM PST) + + +---- + + + | Component | Value | Ref Range | Performed | Pathologist | | | | | At | Signature | + + +---- + + + | WBC | 18.02 (H) | 3.8 0 - 11.00 | EXTERNAL | | | | | K/u L | LAB | | + + +---- + + + | Non- | 4.20 | 3.7 0 - 5.10 | EXTERNAL | | | Red Blood | | M/u L | LAB | | | Cells | | | | | | Counted | | | | | + + +---- + + + | Hemoglobin | 8.7 (L) | 11. 3 - 15.5 | EXTERNAL | | | | | g/d L | LAB | | + + +---- + + + | Hematocrit, | 30.0 (L)Comment: RESULT | 34. 0 - 46.0 % | EXTERNAL | | | POC | VERIFIED | | LAB | | + + +---- + + + | MCV | 71.3 (L) | 80. 0 - 100.0 fl | EXTERNAL | | | | | | LAB | | + + +---- + + + | MCH | 20.7 (L) | 27. 0 - 34.0 pg | EXTERNAL | | | | | | LAB | | + + +---- + + + | MCHC | 29.0 (L) | 32. 0 - 35.5 | EXTERNAL | | | | | g/d L | LAB | | + + +---- + + + | RDW-CV | 54.3 (H) | 37 - 53 fl | EXTERNAL | | | | | | LAB | | + + +---- + + + | Platelet | 542 (H) | 150 - 400 K/uL | EXTERNAL | | | Count | | | LAB | | | Plasma | | | | | + + +---- + + + | MPV | 7.7 | fl | EXTERNAL | | | | | | LAB | | + + +---- + + + | Differentia | MANUAL | | EXTERNAL | | | l Type | | | LAB | | + + +---- + + + | Nucleated | 2 (H) | /10 0WBC | EXTERNAL | | | Red Blood | | | LAB | | | Cells | | | | | + + +---- + + + | Segmented | 57 | % | EXTERNAL | | | Neutrophils | | | LAB | | | Manual | | | | | + + +---- + + + | Lymphocytes | 33 | % | EXTERNAL | | | Manual | | | LAB | | + + +---- + + + | Monocytes | 8 | % | EXTERNAL | | | Manual | | | LAB | | + + +---- + + + | Eosinophils | 2 | % | EXTERNAL | | | Manual | | | LAB | | + + +---- + + + | Absolute | 10.27 (H) | 1.9 0 - 7.40 | EXTERNAL | | | Neutrophils | | K/u L | LAB | | + + +---- + + + | Absolute | 5.95 (H) | 1.0 0 - 3.90 | EXTERNAL | | | Lymphocytes | | K/u L | LAB | | + + +---- + + + | Absolute | 1.44 (H) | 0.0 0 - 0.80 | EXTERNAL | | | Monocytes | | K/u L | LAB | | + + +---- + + + | Absolute | 0.36 | 0.0 0 - 0.50 | EXTERNAL | | | Eosinophils | | K/u L | LAB | | + + +---- + + + | RBC | 3+Comment: | | EXTERNAL | | | Morphology | ANISO1+MICRO2+HYPO2+TARG | | LAB | | | | ET1+OVALO1+ACANTHOTestin | | | | | | g performed at [facility], [address] | | [address], | | | | | | [place] [address] | | | | | |HYPO | | | | | |2+ | | | | | |TARGET | | | | | |1+ | | | | | |OVALO | | | | | |1+ | | | | | |ACANTHO | | | | | |Testing performed at [facility], [address] [place] [address] | | | | | | | [...] | | + +---------+ + + Phosphorus (02/13/2017 5:09 AM PST) + + + + + [...] | LAB | | | | [address];[place] | | | | | | [address] | | | | + + + + + + + + | Specimen | + + | Blood specimen | | (specimen) | + + + +---------+ + + | Performing | Address | City/State/Zipcode | Phone Number | | Organization | | | | + +---------+ + + | EXTERNAL LAB | | | | + +---------+ + + Magnesium (02/13/2017 5:09 AM PST) + + + + + + | Component | Value | Ref Range | Performed | Pathologist | | | | | At | Signature | + + + + + + | Magnesium | 1.7Comment: SLT | 1.7 - 2.4 mg/dL | EXTERNAL | | | | HEMOLYSISTesting | | LAB | | | | performed at [facility] | | | | | | [address];[place], [place] | | | | | | [address] | | | | + + + [...] + +---------+ + + Comprehensive Metabolic Panel (02/13/2017 5:09 AM PST) + + + + + [...] + + + | K | 4.2Comment: SLT | 3.5 - 4.9 | EXTERNAL | | | | HEMOLYSIS | mmol/L | LAB | | + + + + + + | Cl | 111 (H) | 99 - 109 mmol/L | EXTERNAL | | | | | | LAB | | + + + + + + | CO2 | 19 (L) | 23 - 32 mmol/L | EXTERNAL | | | | | | LAB | | + + + + + + | Anion Gap | 14 | 5 - 20 mmol/L | EXTERNAL | | | | | | LAB | | + + + + + + | Glucose, | 89 | 65 - 99 mg/dL | EXTERNAL | | | Fasting | | | LAB | | + + + + + + | BUN | 17 | 8 - 25 mg/dL | EXTERNAL | | | | | | LAB | | + + + + + + | Creatinine | 0.71 | 0.50 - 1.00 | EXTERNAL | | | | | mg/dL | LAB | | + + + + + + | BUN/Creatin | 25 | | EXTERNAL | | | ine Ratio | | | LAB | | + + + + + + | Calcium | 8.3 (L) | 8.5 - 10.5 | EXTERNAL | | | | | mg/dL | LAB | | + + + + + + | Protein, | 6.5 | 6.3 - 8.2 g/dL | EXTERNAL | | | Total | | | LAB | | + + + + + + | Albumin | 2.4 (L) | 3.3 - 4.8 g/dL | EXTERNAL | | | | | | LAB | | + + + + + + | Globulin | 4.1 | 1.3 - 4.9 g/dL | EXTERNAL [...] + + + + | ALP, | 134 (H) | 35 - 115 U/L | EXTERNAL | | | External | | | LAB | | + + + + + + | AST | 21Comment: SLT HEMOLYSIS | 10 - 45 U/L | EXTERNAL | | | | | | LAB | | + + + + + + | ALT | 14 | 10 - 65 U/L | EXTERNAL [...] | at [facility];[address] [place] [address] | | | | | | [facility];[place] [address] | | | | + + + + + + + + | Specimen | + + | Blood specimen | | (specimen) | + + + +---------+ + + | Performing | Address | City/State/Zipcode | Phone Number | | Organization | | | | + +---------+ + + | EXTERNAL LAB | | | | + +---------+ + + POC Glucose (02/13/2017 12:30 AM PDT) + + + + + + | Component | Value | Ref Range | Performed | Pathologist | | | | | At | Signature | + + + + + + | Glucose, | 100 (H)Comment: Testing | 65 - 99 mg/dL | EXTERNAL | | | Fingerstick | performed at [facility];[address] | | LAB | | | | [address];[place] | | | | | | [address] | | | | + + + + + + + + | Specimen | + + | | + + + +---------+ + + | Performing | Address | City/State/Zipcode | Phone Number | | Organization | | | | + +---------+ + + | EXTERNAL LAB | | | | + +---------+ + + POC Glucose (02/12/2017 5:44 PM PDT) + + + + + + | Component | Value | Ref Range | Performed | Pathologist | | | | | At | Signature | + + + + + + | Glucose, | 102 (H)Comment: Testing | 65 - 99 mg/dL | EXTERNAL | | | Fingerstick | performed at [facility];[address] | | LAB | | | | [address];[place] | | | | | | [address] | | | | + + + + + + + + | Specimen | + + | | + + + +---------+ + + | Performing | Address | City/State/Zipcode | Phone Number | | Organization | | | | + +---------+ + + | EXTERNAL LAB | | | | + +---------+ + + POC Glucose (02/12/2017 2:12 PM PDT) + + + + + + | Component | Value | Ref Range | Performed | Pathologist | | | | | At | Signature | + + + + + + | Glucose, | 104 (H)Comment: Testing | 65 - 99 mg/dL | EXTERNAL | | | Fingerstick | performed at [facility] [place] | | LAB | | | | Torsten Loredo;[place] | | | | | | [address] | | | | + + + + + + + + | Specimen | + + | | + + + +---------+ + + | Performing | Address | City/State/Zipcode | Phone Number | | Organization | | | | + +---------+ + + | EXTERNAL LAB | | | | + +---------+ + + Protime INR (02/12/2017 6:41 AM PDT) + + + + + [...] | | | | | | Torsten Zamora;[place], [place] | | | | | | [id number] | | | | + + + [...] + +---------+ + + External Lab: CBC (02/12/2017 6:41 AM PDT) + + + + + + | Component | Value | Ref Range | Performed | Pathologist | | | | | At | Signature | + + + + + + | WBC | 19.94 (H) | 3.80 - 11.00 | EXTERNAL | | | | | K/uL | LAB | | + + + + + + | Non- | 4.73 | 3.70 - 5.10 | EXTERNAL | | | Red Blood | | M/uL | LAB | | | Cells | | | | | | Counted | | | | | + + + + + + | Hemoglobin | 10.1 (L) | 11.3 - 15.5 | EXTERNAL | | | | | g/dL | LAB | | + + + + + + | Hematocrit, | 34.4 | 34.0 - 46.0 % | EXTERNAL | | | POC | | | LAB | | + + + + + + | MCV | 72.7 (L) | 80.0 - 100.0 fl | EXTERNAL | | | | | | LAB | | + + + + + + | MCH | 21.4 (L) | 27.0 - 34.0 pg | EXTERNAL | | | | | | LAB | | + + + + + + | MCHC | 29.5 (L) | 32.0 - 35.5 | EXTERNAL | | | | | g/dL | LAB | | + + + + + + | RDW-CV | 52.9 | 37 - 53 fl | EXTERNAL | | | | | | LAB | | + + + + + + | Platelet | 594 (H) | 150 - 400 K/uL | EXTERNAL | | | Count | | | LAB | | | Plasma | | | | | + + + + + + | MPV | 7.6 | fl | EXTERNAL | | | | | | LAB | | + + + + + + | Differentia | AUTOMATED | | EXTERNAL | | | l Type | | | LAB | | + + + + + + | % Segmented | 67.56 | % | EXTERNAL | | | | | | LAB | | | Neutrophils | | | | | + + + + + + | % | 24.48 | % | EXTERNAL | | | Lymphocytes | | | LAB | | + + + + + + | % Monocytes | 6.87 | % | EXTERNAL | | | | | | LAB | | + + + + + + | % | 0.06 | % | EXTERNAL | | | Eosinophils | | | LAB | | + + + + + + | % Basophils | 1.03 | % | EXTERNAL | | | | | | LAB | | + + + + + + | Absolute | 13.47 (H) | 1.90 - 7.40 | EXTERNAL | | | Segmented | | K/uL | LAB | | | Neutrophils | | | | | + + + + + + | Absolute | 4.88 (H) | 1.00 - 3.90 | EXTERNAL | | | Lymphocytes | | K/uL | LAB | | + + + + + + | Absolute | 1.37 (H) | 0.00 - 0.80 | EXTERNAL | | | Monocytes | | K/uL | LAB | | + + + + + + | Absolute | 0.01 | 0.00 - 0.50 | EXTERNAL | | | Eosinophils | | K/uL | LAB | | + + + + + + | Absolute | 0.21 (H) | 0.00 - 0.10 | EXTERNAL | | | Basophils | | K/uL | LAB | | + + + + + + | RBC | 2+ | | EXTERNAL | | | Morphology | Comment: | | LAB | | | | MICRO | | | | | | 2+ | | | | | | HYPO | | | | | | | | | | + + + + + + | Differentia | SLIDE SCANNED, AGREES | | EXTERNAL | | | l Comments | WITH AUTOMATED | | LAB | | | | RESULTS.Comment: Testing | | | | | | performed at [facility] | | | | | | [address];[place] | | | | | | [address] | | | | + + + + + + + + | Specimen | + + | Blood specimen | | (specimen) | + + + +---------+ + + | Performing | Address | City/State/Zipcode | Phone Number | | Organization | | | | + +---------+ + + | EXTERNAL LAB | | | | + +---------+ + + Phosphorus (02/12/2017 6:41 AM PDT) + + + + + [...] | LAB | | | | [address];[place], [place] | | | | | | [address] | | | | + + + + + + + + | Specimen | + + | Blood specimen | | (specimen) | + + + +---------+ + + | Performing | Address | City/State/Zipcode | Phone Number | | Organization | | | | + +---------+ + + | EXTERNAL LAB | | | | + +---------+ + + Magnesium (02/12/2017 6:41 AM PDT) + + + + + + | Component | Value | Ref Range | Performed | Pathologist | | | | | At | Signature | + + + + + + | Magnesium | 2.1Comment: Testing | 1.7 - 2.4 mg/dL | EXTERNAL | | | | performed at [facility] | | LAB | | | | [facility];[place], [place] | | | | | | [address] | | | | + + + [...] + +---------+ + + Basic Metabolic Panel (02/12/2017 6:41 AM PDT) + + + + + + | Component | Value | Ref Range | Performed | Pathologist | | | | | At | Signature | + + + + + + | Na | 137 | 135 - 145 | EXTERNAL | | | | | mmol/L | LAB | | + + + + + + | K | 5.3 (H) | 3.5 - 4.9 | EXTERNAL | | | | | mmol/L | LAB | | + + + + + + | Cl | 106 | 99 - 109 mmol/L | EXTERNAL | | | | | | LAB | | + + + + + + | CO2 | 21 (L) | 23 - 32 mmol/L | EXTERNAL | | | | | | LAB | | + + + + + + | Anion Gap | 15 | 5 - 20 mmol/L | EXTERNAL | | | | | | LAB | | + + + + + + | Glucose, | 109 (H) | 65 - 99 mg/dL | EXTERNAL | | | Fasting | | | LAB | | + + + + + + | BUN | 26 (H) | 8 - 25 mg/dL | EXTERNAL | | | | | | LAB | | + + + + + + | Creatinine | 0.93 | 0.50 - 1.00 | EXTERNAL | [...] [facility] | | | | | | [facility];[place] [address] | | | | + + + [...] + +---------+ + + HISTORICAL MICROBIOLOGY RESULT (02/12/2017 2:55 AM PDT) + + | Specimen | + + | | + + + + + | Narrative | Performed At | + + + | [facility] ANTIGEN NEGATIVE TOXIN A | EXTERNAL LAB | | NEGATIVE C DIFF | | | INTERPRETATION Negative for toxigenic C.difficile. | | | Testing performed at [facility];[address] [place] [address];[place] [address] | | + + + + +---------+ + + | Performing | Address | City/State/Zipcode | Phone Number | | Organization | | | | + +---------+ + + | EXTERNAL LAB | | | | + +---------+ + + Lactic Acid (02/12/2017 12:59 AM PDT) + + + + + + | Component | Value | Ref Range | Performed | Pathologist | | | | | At | Signature | + + + + + + | Lactate | 2.5 (H)Comment: Testing | 0.4 - 2.0 | EXTERNAL | | | | performed at [facility];[address] | mmol/L | LAB | | | | [address];[place], [place] | | | | | | [address] | | | | + + + + + + + + | Specimen | + + | | + + + +---------+ + + | Performing | Address | City/State/Zipcode | Phone Number | | Organization | | | | + +---------+ + + | EXTERNAL LAB | | | | + +---------+ + + Lactic Acid (02/11/2017 10:18 PM PDT) + + + + + + | Component | Value | Ref Range | Performed | Pathologist | | | | | At | Signature | + + + + + + | Lactate | 1.5Comment: Testing | 0.4 - 2.0 | EXTERNAL | | | | performed at [facility];[address] | mmol/L | LAB | | | | [address];[place] | | | | | | [address] | | | | + + + + + + + + | Specimen | + + | | + + + +---------+ + + | Performing | Address | City/State/Zipcode | Phone Number | | Organization | | | | + +---------+ + + | EXTERNAL LAB | | | | + +---------+ + + PTT (02/11/2017 9:40 PM PDT) + + + + + + | Component | Value | Ref Range | Performed | Pathologist | | | | | At | Signature | + + + + + + | aPTT, | 27Comment: Testing | 23 - 32 seconds | EXTERNAL | | | Patient | performed at [facility];[address] | | LAB | | | | [address];[place], [place] | | | | | | [address] | | | | + + + + + + + + | Specimen | + + | Blood specimen | | (specimen) | + + + +---------+ + + | Performing | Address | City/State/Zipcode | Phone Number | | Organization | | | | + +---------+ + + | EXTERNAL LAB | | | | + +---------+ + + Protime INR (02/11/2017 9:40 PM PDT) + + + + + [...] [facility] | | | | | | [facility];[place], [place] | | | | | | [address] | | | | + + + [...]
--- OUTSIDE RECORDS SUMMARY | ~2019-11-05 | XMS | Encounter Summary ---
Demographics + + + | Address | [address] | | | [place] [address] | + + + | Home Phone | | + + + | Preferred Language | Unknown | + + + | Marital Status | | + + + | Orthodoxy Affiliation | Unknown | + + + | Race | Unknown | + + + | Ethnic Group | Unknown | + + + Author + + + | Author | [facility] | | | and [place] | + + + | Organization | [facility] | | [...] Team Providers + +------+ + | Care Flat Screen Worker Name | Role | Phone | [...] Provider Unknown | | | | | [place], [place] | [phone] | | | | | [address] | | | | | | [phone] | | | +--------+ + + + [...]
--- OUTSIDE RECORDS SUMMARY | ~2019-11-05 | XMS | Clinical Summary ---
Demographics + + + | Address | [address] | | | [place] [address] | + + + | Home Phone | | + + + | Preferred Language | Unknown | + + + | Marital Status | | + + + | Druze Affiliation | NRP | + + + | Race | White | + + + | Ethnic Group | Not or | + + + Author + + + | Author | [facility] | + + + | Organization | [facility] | + + + [...] [place], [place] | | | | | [address] | | + + + + + | Cami Sawyer | ECON | Unknown | | + + + + + Care Team Providers + +------+ + | Care Surgical Dressing Maker Name | Role | Phone | + +------+ + | Aren Rose DO | PCP | | + +------+ + Source Comments [facility] is fully live on both EpicCare Ambulatory and EpicCare InPatient.[facility] Allergies + + + + [...] + + | Overview: Vaccinations given at [facility] pneumonia and flu and | | at [facility] HIB and meningeal coccal 04/25 | [...] | | | | | | | [address] | | + +--------+ +--------+ + +--------+ | [employer] | AARP | xxxxxxxxx-x | 04/11/19 | [phone] | [address] | Indemn | | RETIRED PEOPLE | | | 13-Pre | [phone] | [phone] | ity | | | | | sent | | [place], [place] | | | | | | | | [address] | | + +--------+ +--------+ + +--------+ [...] | 1956 | [phone] | [place] [address] | | | bianca | | | [address] (Home) | | | | | | | [phone] | | | | | | | [...]
--- OUTSIDE RECORDS SUMMARY | ~2019-11-05 | XMS | Encounter Summary ---
Demographics + + + | Address | [address] | | | [place] [address] | + + + | Home Phone | | + + + | Preferred Language | Unknown | + + + | Marital Status | | + + + | Jainism Affiliation | Unknown | + + + | Race | Unknown | + + + | Ethnic Group | Unknown | + + + Author + + + | Author | [facility] | | | and [place] | + + + | Organization | [facility] | | [...] Team Providers + +------+ + | Care [employer] Driver Name | Role | Phone | + +------+ + PCP | Unavailable | + +------+ + Encounter Details +--------+ + + + + | Date | Type | Department | Care Team | Description | +--------+ + + + + | 04/12/ | Hospital | [facility] | Dionicio, | Acute | | 2015 - | Encounter | [facility] | Bonnieroxane Jones, | gastroenteritis; PAF | | | | INTENSIVE CARE UNIT | MD Jaspal [address] | (paroxysmal atrial | | 04/23/ | | [address] | HEATHER E KAMI, | fibrillation) ([facility]); | | 2014 | | [place], [place] | [place] [address] | Sepsis([phone]) | | | | [address] | [phone] | (HCC); Acute | | | | [phone] | | systolic heart | | | | | | failure (HCC); Acute | | | | | | respiratory failure | | | | | | ([facility]); Aspiration | | | | | | pneumonia ([facility]); | | | | | | COPD (chronic | | | | | | obstructive | | | | | | pulmonary disease) | | | | | | ([facility]); Crohn's | | | | | | disease ([facility]); | | | | | | 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 Hospital [...] , recurrent UTI, admitted on 04/06/14 in [facility] for nausea, vomiting pre viously ingested [...] intubated on 04/12/13 and t ransfered from [facility] to [facility]. SEE assessment and plan for summary of [...] Procedure: ESOPHAGOGASTRODUODENOSCOPY; Surgeon: Bony Petty MD; Location: [facility] BEDSIDE PROCEDURE; Service: Gastroenterology; Laterality: N/A; ALLERGIES [...] 04/23/14 0528 Gross per 24 hour Intake 77573 ml Output 6589 ml Net 7458 ml [...] fibrillation) Stricture esophagus dilated with bougue 20 grenadian 04/21/2014 ASSESSMENT & PLAN Intrabd bleeding Abd/spleen [...] output and hypotension with concerns of ac cahuilla renal failure and wanted additional info. Concern [...] on hemaglobin trending down. Called general surgeon buttonholer. No interventional radiology. Pt taken to OR [...] products since that time. Surgical history from [facility] records Small bowel resection with 17 inches [...] Reported Idiopathic Cardiomyopathy: LVEF 30% by ECHO ([place]). Normal EF 60-65% ECHO at [facility] 04/20/14 Impression 1. Overall left ventricular systolic [...] at home prior to this admission ad [facility]. This could have been due to her esophageal stricture which was just diagnosed 04/21/14 and treated with dilatation. Last sputum 04/19/14 Description SPUTUM GRAM STAIN GREATER THAN 10 WBCS/LPF GRAM STAIN LESS THAN 10 SEC/LPF GRAM STAIN NO ORGANISMS SEEN CULTURE 1+ CULTURE MATTHIEU ALBICANS A CULTURE Testing performed at [facility], [address] [place] [address] Resulting PCP negative. ID: B/L Aspiration pneumonia [...] compromised: On Remecade as out pt. From [facility] positive blood culture from 04/08/14 Staph capitis S to vanco, cipr, gent, levo, tigecycline I clinda. GI/NUTRITION: Crohn's disease. " for at least 40 yrs" As an outpt pt was on prilosec, remicade ( every 6 weeks via rolando cath) and prednisone 5mg po daily ( from 04/06/2014 H and P admission for n/v/d abd pain and dehydration [place], [place]) Unknown last colonoscopy. Unknown last EGD [...] nd and daughter to acquire records from [facility] where pt has had additional work [...] 04/23/14219 Date of Service: 04/23/14219 Status: Signed Category Consultant: Yokasta Torrez RN (Registered Nurse) 5 Laps left in patient post op for packing. chTrice rowland - 04/23/2014 12:22 AM PSTFormatting of this note might be different from t he original. Significant Event by Trice Fagan MD at 04/23/1421 Author: Trice Fagan MD Service: Slurry Control Tender Author Type: Slurry Control Tender Filed: 04/23/1440 Date of Service: 04/23/1421 Status: Addendum Category Consultant: Trice Fagan MD (Physician) Related Notes: Original [...] at 04/22/142010 Author: Jannet Shields MD Service: Slurry Control Tender Author Type: Slurry Control Tender Filed: 04/22/142118 Date of Service: 04/22/142010 Status: Addendum Category Consultant: Jannet Shields MD (Physician) Related Notes: Original Note by Jannet Shields MD (Physician) filed at 04/22/142106 [facility] Service: Slurry Control Tender Progress Note Mackenzie Hartley 58 y.o. Hospital [...] , recurrent UTI, admitted on 04/06/14 in [facility] for nausea, vomiting pre viously ingested [...] given re intubation 04/19/14: Care conference with Slurry Control Tender/AIMS. Continue with full treatment. Heparin infusi on was started due to the splenic artery thrombosis. 04/20/14: Dr. Petty was consult from GI to scope the patient prior to extubation. 04/22/14: Hemorrhagic shock from intraperitoneal bleed on heparin, [place], Right IJ Cordis, 6 units PRBC, 2 [...] Procedure: ESOPHAGOGASTRODUODENOSCOPY; Surgeon: Bony Petty MD; Location: [facility] BEDSIDE PROCEDURE; Service: Gastroenterology; Laterality: N/A; ALLERGIES [...] fibrillation) Stricture esophagus dilated with bougue 20 grenadian 04/21/2014 Crohn's disease Microcytic anemia Aspiration pneumonia [...] stable. Idiopathic Cardiomyopathy: LVEF 60% here at [facility] improved over the 30% noted in [place] [...] dilated by Dr Petty with a 20 grenadian robert 04/21/14 Intraperitoneal bleed/Hemorrhagic Shock: While on [...] (none) Author Type: Registered Nurse Filed: 04/22/14 4030 Date of Service: 04/22/14 1315 Status: Signed Category Consultant: Cher Bailey RN (Registered Nurse) Patient increasingly [...] Author: LEVI Acharya Service: (none) Author Type: Assembler Hydraulic Backhoe Filed: 04/22/14 1124 Date of Service: 04/22/141121 Status: Signed Category Consultant: LEVI Acharya (Assembler Hydraulic Backhoe) Attended morning rounds. No family present during [...] 1458 Date of Service: 04/22/14814 Status: Signed Category Consultant: Rich Jiménez PT (Physical Therapist) 04/22/14814 PT [...] 04/21/141824 Date of Service: 04/21/141821 Status: Signed Category Consultant: Taylor Trevino RN (Registered Nurse) Attempted to call pt's Norm [phone] to obtain consent to give blood. No answe r, will attempt to call again soon. TAYLOR TREVINO 04/21/2014 onver roshan Kapooraction, Provider Unknown - 04/21/2014 4:46 PM PST Progress Notes by Darline Hartley RN at 04/21/14 1646 Author: Darline Hartley RN Service: (none) Author Type: Registered Nurse Filed: 04/21/14 1647 Date of Service: 04/21/141645 Status: Signed Category Consultant: Darline Hartley RN (Registered Nurse) Savary dilators used incrementally at 18Fr and 20Fr. DARLINE HARTLEY onver roshan Transaction, Provider Unknown - 04/21/2014 3:30 PM PST Progress Notes by Taylor Trevino RN at 04/21/14 1530 Author: Taylor Trevino RN Service: (none) Author Type: Registered Nurse Filed: 04/21/14 1557 Date of Service: 04/21/141529 Status: Signed Category Consultant: Taylor Trevino RN (Registered Nurse) Dr Petty [...] 134 Date of Service: 04/21/141339 Status: Signed Category Consultant: Leah Chris RPH (Pharmacist) Day 10 Vanco [...] Date of Service: 04/21/14 1015 Status: Signed Category Consultant: Jaz Mobley PT (Physical Therapist) 04/21/14 1015 [...] 04/21/14 1008 Author: Trice Fagan MD Service: Slurry Control Tender Author Type: Slurry Control Tender Filed: 04/21/14 2300 Date of Service: 04/21/14 1008 Status: Signed Category Consultant: Trice Fagan MD (Physician) [facility] Service: Slurry Control Tender Progress Note Mackenzie Hartley 58 y.o. Hospital [...] , recurrent UTI, admitted on 04/06/14 in [facility] for nausea, vomiting pre viously ingested [...] given re intubation 04/19/14: Care conference with Slurry Control Tender/AIMS. Continue with full treatment. Heparin infusi on [...] stable. Idiopathic Cardiomyopathy: LVEF 30% by ECHO ([place]). ECHO here at [facility] 04/20/14 Impression 1. Overall left ventricular systolic [...] (none) Author Type: Registered Nurse Filed: 04/20/14 4469 Date of Service: 04/20/141699 Status: Signed Category Consultant: Taylor Trevino RN (Registered Nurse) Labs drawn from [facility] per protocol. Flushed with 20ML NS, jhony back and wasted 8ML blo od and then jhony sample. Labs sent to lab per orders. TAYLOR TREVINO 04/20/2014 onver roshan Transaction, Provider Unknown - 04/20/2014 2:54 PM PST Progress Notes by Pia Garcia RD, CD at 04/20/14 8218 Author: Pia Garcia RD, CD Service: (none) Author Type: Registered Dietitian Filed: 04/20/14 1248 Date of Service: 04/20/14 052 Status: Signed Category Consultant: Pia Garcia RD, CD (Registered Dietitian) Nutrition [...] Progress Notes by JENARO Perez at 04/20/14 1821 Author: JENARO Perez Service: Slurry Control Tender Author Type: Slurry Control Tender Filed: 04/20/14 2682 Date of Service: 04/20/14 2934 Status: Signed Category Consultant: JENARO Perez (Nurse Practitioner) [facility] Service: Slurry Control Tender Progress Note Mackenzie Hartley 58 y.o. Hospital Day: LOS: 8 days Post-Op Day: * No surgery found * Consulting Physicians Treatment Team: Consulting Physician: Eric Chavez MD Consulting Physician: Bony Petty MD Admitting Provider: Bonnie Greenberg MD SUBJECTIVE Patient Summary: Per Dr Greenberg: The patient is a 58 y.o. 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 Continue with full treatment. Heparin infusi on [...] Net 714.5 ml EXAM GEN: Sedated modified Boston scale of 3 patient is able to [...] Life issues: Was a DNR while in [place] but consented to be intubated prior to [...] stable. Idiopathic Cardiomyopathy: LVEF 30% by ECHO ([place]). PULM: Pulmonary Edema: Related to cardiomyopathy and [...] 04/20/14899 Date of Service: 04/20/14899 Status: Signed Category Consultant: Leah Chris RPH (Pharmacist) Day 9 Vanco Tx Todays Scr= 0.58, WBC= 21.3 with estim CrCl= 110.5 ml/min Pharmacist: LEAH CHRIS 04/20/2014 8:59 AM onver roshan Transaction, Provider Unknown - 04/19/2014 7:53 PM PST Progress Notes by Mila Pinedo at 04/19/141952 Author: Mila Pinedo Service: (none) Author Type: Metal Fabricating Supervisor Filed: 04/19/142001 Date of Service: 04/19/141952 Status: Signed Category Consultant: Mila Pinedo (Metal Fabricating Supervisor) AIM care conference with Dr Chavez and Maryjane AIM/CM expanded to include ICU Slurry Control Tender and pts current RN. Present also were Mackenzie's , Kole, and two of the four children, Silva and Otilia. Slurry Control Tender gave a thorough explanation of the progression [...] for a good part of her vocation. Slurry Control Tender asked for another care conference on Friday 04/21 to update the family on Mackenzie' s progress. ostLyly smith MSW - 04/19/2014 4:14 PM PST Progress Notes by LEVI Cervantes at 04/19/14 1614 Author: LEVI Cervantes Service: (none) Author Type: Assembler Hydraulic Backhoe Filed: 04/19/14 2404 Date of Service: 04/19/14 1614 Status: Signed Category Consultant: LEVI Cervantes (Assembler Hydraulic Backhoe) SOPHIE SAEED, SOPHIE SIMS, Metal Fabricating Supervisor, pt's RN Kassandra Garrett and ICU Slurry Control Tender met with family to ex plore goals of care. ICU Slurry Control Tender thoroughly explained pt's course of care during [...] this time. Pt's spouse Kole and dtrs Liam live in [place], [place]. Family e xpressed strong concerns that [...] several months and had see n an research mechanic for the mouth and throat sores to no avail. Pt's spouse Kole and pt's dtr express tremendous frustration over what they perceive has been poor med ical management of pt's illnesses prior to this admission. ICU Slurry Control Tender recommended a wo rk up of pt's [...] 1328 Date of Service: 04/19/148 Status: Signed Category Consultant: Paula Barnes RPH (Pharmacist) Clinical Pharmacy Note: [...] Date of Service: 04/19/14 1152 Status: Signed Category Consultant: Rhianna Blackwood RN (Registered Nurse) Wound care came to see this patient today because of Markc scores that put the patient at moderate [...] Progress Notes by JENARO Perez at 04/19/14 4542 Author: JENARO Perez Service: Slurry Control Tender Author Type: Slurry Control Tender Filed: 04/20/14 0749 Date of Service: 04/19/141134 Status: Signed Category Consultant: JENARO Perez (Nurse Practitioner) [facility] Service: Slurry Control Tender Progress Note Mackenzie Hartley 58 y.o. Hospital [...] COPD, recurrent UTI, admitted on 04/06/14 in [facility] for nausea, vomiti ng previously ingested [...] given re intubation 04/19/14: Care conference with Slurry Control Tender/AIMS. Continue with full treatment. Events Overnight: No [...] Life issues: Was a DNR while in [place] but consented to be intubated prior to [...] stable. Idiopathic Cardiomyopathy: LVEF 30% by ECHO ([place]). PULM: Pulmonary Edema: Related to cardiomyopathy and [...] Author: LEVI Acharya Service: (none) Author Type: Assembler Hydraulic Backhoe Filed: 04/19/14 1134 Date of Service: 04/19/14 113 Status: Signed Category Consultant: LEVI Acharya (Assembler Hydraulic Backhoe) Care conference arranged for today at 2pm with Dr. Chavez. Await decision of family regardin g continued aggressive care vs. Comfort care. ongenaro islas Transaction, Provider Unknown - 04/19/2014 9:10 AM PST Therapy Progress Note by Rich Jiménez PT at 04/19/14 0910 Author: Rich Jiménez PT Service: (none) Author Type: Physical Therapist Filed: 04/19/14 1153 Date of Service: 04/19/14 0910 Status: Signed Category Consultant: Rich Jiménez PT (Physical Therapist) 04/19/14 0910 PT Last Visit PT Received On 04/19/14 Requires PT Follow Up On hold Lyly Hein, RESEARCHER - 04/18/2014 5:22 PM PST Progress Notes by LEVI Cervantes at 04/18/14 1722 Author: LEVI Cervantes Service: (none) Author Type: Assembler Hydraulic Backhoe Filed: 04/18/14 1724 Date of Service: 04/18/14 172 Status: Signed Category Consultant: LEVI Cervantes (Assembler Hydraulic Backhoe) SOPHIE CARVALHOW was summoned to pt's room by pt's RN. Two adult dtr's were bedside. RESEARCHER asked it they would be able to meet with AIM service MD, nurse transplant/WOMEN'S GARMENT FITTER, ICU RESEARCHER and credit compliance officer vero hoover to discuss goals of care. [...] Date of Service: 04/18/14 1419 Status: Signed Category Consultant: Rich Jiménez PT (Physical Therapist) 04/18/14 1419 PT Last Visit PT Received On 04/18/14 Requires PT Follow Up On hold onver roshan Transaction, Provider Unknown - 04/18/2014 12:07 PM PST Case Management by LEVI Acharya at 04/18/14 1207 Author: LEVI Acharya Service: (none) Author Type: Assembler Hydraulic Backhoe Filed: 04/18/14 1210 Date of Service: 04/18/14 1207 Status: Signed Category Consultant: LEVI Acharya (Assembler Hydraulic Backhoe) CM called pt's spouse Kole. Spoke with [...] one of them to accompany him to [place] and is waiting to hear from the [...] Author: LEVI Cervantes Service: (none) Author Type: Assembler Hydraulic Backhoe Filed: 04/18/14 1033 Date of Service: 04/18/14 1031 Status: Signed Category Consultant: LEVI Cervantes (Assembler Hydraulic Backhoe) SOPHIE RESEARCHER called pt's spouse Kole using phone contact [...] 04/18/14930 Date of Service: 04/18/14930 Status: Signed Category Consultant: Paula Barnes RPH (Pharmacist) Clinical Pharmacy Note: Vancomycin Day 7 No trough ordered today Dose @ 1400 Vancomycin 1250mg Daily IVPB Improvement in Scr. If this is sustained, will check level tomorrow to see we are not unde rdosing. Paula Barnes RP 04-18-2014 Mai Madrigal ARNP - 04/18/2014 6:42 AM PST Progress Notes by JENARO Mcdermott at 04/18/14641 Author: JENARO Mcdermott Service: Slurry Control Tender Author Type: Nurse Practitioner Filed: 04/18/14 1137 Date of Service: 04/18/14641 Status: Signed Category Consultant: JENARO Mcdermott (Nurse Practitioner) [facility] Service: Slurry Control Tender Progress Note Mackenzie Hartley 58 y.o. Hospital Day: LOS: 6 days Post-Op Day: * No surgery found * Consulting Physicians Treatment Team: Consulting Physician: Eric Chavez MD Admitting Provider: Bonnie Greenberg MD SUBJECTIVE Patient Summary: Per Dr Greenberg: The patient is a 58 y.o. 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 Idiopathic Cardiomyopathy: LVEF 30% by ECHO ([place]). Lasix 20mg today (04/18) PULM: Pulmonary Edema: [...] 141 Date of Service: 04/17/141411 Status: Signed Category Consultant: Paula Barnes RPH (Pharmacist) Clinical Pharmacy Note: Vancomycin Day 6 Vancomycin trough today at 1300 was 17.5 Scr 0.96 mg/dL CrCl 66.8 ml/min WBC 19.2 Continue Vancomycin 1250 mg IV q24h Dose at 1400 Paula Barnes RP 04-17-2014 onver roshan Transaction, Provider Unknown - 04/17/2014 11:07 AM PST Case Management by LEVI Acharya at 04/17/14 1107 Author: LEVI Acharya Service: (none) Author Type: Assembler Hydraulic Backhoe Filed: 04/17/14 1108 Date of Service: 04/17/141106 Status: Signed Category Consultant: LEVI Acharya (Assembler Hydraulic Backhoe) Pt re-intubated yesterday. Dr. Chavez to consult [...] 0945 Date of Service: 04/17/1440 Status: Signed Category Consultant: Jessica Huerta PT (Physical Therapist) 04/17/14 0940 PT Last Visit PT Received On 04/17/14 Requires PT Follow Up On hold (see comments) Other Comments Comments Pt remains intubated. Awaiting new orders when/if appropriate. Mai Madrigal ARNP - 04/17/2014 8:58 AM PST Progress Notes by JENARO Mcdermott at 04/17/14 0858 Author: JENARO Mcdermott Service: Slurry Control Tender Author Type: Nurse Practitioner Filed: 04/17/14 1237 Date of Service: 04/17/1458 Status: Addendum Category Consultant: JENARO Mcdermott (Nurse Practitioner) Related Notes: Original Note by JENARO Mcdermott (Nurse Practitioner) filed at 10/[address] [place] [address] Service: Slurry Control Tender Progress Note Mackenzie Hartley 58 y.o. Hospital Day: LOS: 5 days Post-Op Day: * No surgery found * Consulting Physicians Treatment Team: Consulting Physician: Eric Chavez MD Admitting Provider: Bonnie Greenberg MD SUBJECTIVE Patient Summary: Per Dr Greenberg: The patient is a 58 y.o. 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 Will use prophylactic dose Lovenox, & consider warfarin PAF: Paroxysmal Atrial Fib treated with amiodarone now staying in [place]. Idiopathic Cardiomyopathy: LVEF 30% by ECHO from recent ECHO in [place] PULM: Pulmonary Edema: Related to cardiomyopathy and [...] 154 Date of Service: 04/16/141540 Status: Signed Category Consultant: Nadir Yee RPH (Pharmacist) Vancomycin day 5, trough at 1300 today was 19.3 (goal 15-20). Will continue at same dosing and recheck a trough level on 04/17 at 1300. onver roshan Transaction, Provider Unknown - 04/16/2014 1:25 PM PST Progress Notes by Jacoby Muñoz RD at 04/16/14 3931 Author: Jacoby Muñoz RD Service: (none) Author Type: Registered Dietitian Filed: 04/16/14 9524 Date of Service: 04/16/14 1325 Status: Signed Category Consultant: Jacoby Muñoz RD (Registered Dietitian) Nutrition Follow-Up [...] Date of Service: 04/16/14 1222 Status: Signed Category Consultant: Rich Jiménez PT (Physical Therapist) 04/16/14 1222 [...] Date of Service: 04/16/14 1151 Status: Signed Category Consultant: Nadir Yee RPH (Pharmacist) Vancomycin day 5, est crcl 74.5ml/min, awaiting trough level at 1300 today. onver roshan Transaction, Provider Unknown - 04/16/2014 11:37 AM PST Case Management by Alessia Smith RN at 04/16/14 4027 Author: Alessia Smith RN Service: (none) Author Type: Registered Nurse Filed: 04/16/14 6882 Date of Service: 04/16/141136 Status: Addendum Category Consultant: Alessia Smith RN (Registered Nurse) Related Notes: Original Note by Alessia Smith RN (Registered Nurse) filed at 04/16/14 2919 Tried to call but number on facesheet is non-functioning. Called [facility] for t elephone number (they have same number). They will also fax a page from pt.s last admission to them that states pt.iIs full code. Will continue to try and connect with per Dr. Hsu request. Kole's phone as listed in the room is [phone]. Spoke with him, he didn't have plans [...] 04/16/149 Date of Service: 04/16/141047 Status: Signed Category Consultant: Becka Lama RN (Registered Nurse) Attempted to visit pt for Coumadin Education. Pt intubated in ICU. Coumadin education yovani otero left on chart to review with pt as appropriate. Jannet Roach MD - 04/16/2014 5:31 AM PSTFormatting of this note might be different from the briana ginal. Progress Notes by Jannet Shields MD at 04/16/14530 Author: Jannet Shields MD Service: Slurry Control Tender Author Type: Slurry Control Tender Filed: 04/16/1449 Date of Service: 04/16/14530 Status: Signed Category Consultant: Jannet Shields MD (Physician) [facility] Service: Slurry Control Tender Progress Note Mackenzie Hartley 58 y.o. Hospital Day: LOS: 4 days Post-Op Day: * No surgery found * Consulting Physicians Treatment Team: Admitting Provider: Bonnie Greenberg MD SUBJECTIVE Patient Summary: Per Dr Greenberg: The patient is a 58 y.o. 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 Will use prophylactic dose Lovenox, & consider warfarin PAF: Paroxysmal Atrial Fib treated with amiodarone now staying in SR. Idiopathic Cardiomyopathy: LVEF 30% by ECHO from recent ECHO in [place] PULM: Pulmonary Edema: Related to cardiomyopathy and [...] 04/15/141801 Date of Service: 04/15/141801 Status: Signed Category Consultant: Hipolito Isaac () Pt sleeping. Will continue to provide care as needed/requested. Chaplain Chandler onver roshan Transaction, Provider Unknown - 04/15/2014 3:45 PM PST Therapy Progress Note by Rich Jiménez PT at 04/15/14 9250 Author: Rich Jiménez PT Service: (none) Author Type: Physical Therapist Filed: 04/15/14 1743 Date of Service: 04/15/14 1545 Status: Signed Category Consultant: Rich Jiménez PT (Physical Therapist) 04/15/14 1540 PT Last Visit PT Received On 04/15/14 [...] Author: LEVI Acharya Service: (none) Author Type: Assembler Hydraulic Backhoe Filed: 04/15/14 1150 Date of Service: 04/15/141145 Status: Addendum Category Consultant: LEVI Acharya (Assembler Hydraulic Backhoe) Related Notes: Original Note by LEVI Achraya (Assembler Hydraulic Backhoe) filed at 04/15/14 1148 Attended morning rounds. Pt is now on bi-pap. called and received update from RN. Informed that he would not be visiting pt today. He has not visited pt since her admit. I have placed pt on list at [facility] as a back up plan as she will likely need SNF for reha b. PT notes indicate this as well. [facility] - [phone] onver roshan Transaction, Provider Unknown - 04/15/2014 8:12 AM PST Progress Notes by Nadir Yee RPH at 04/15/14811 Author: Nadir Yee RPH Service: Pharmacy Author Type: Pharmacist Filed: 04/15/14811 Date of Service: 04/15/14811 Status: Signed Category Consultant: Nadir Yee RPH (Pharmacist) Vancomycin day 4, [...] 04/15/14 0645 Author: Jannet Shields MD Service: Slurry Control Tender Author Type: Slurry Control Tender Filed: 04/15/14 0702 Date of Service: 04/15/1445 Status: Signed Category Consultant: Jannet Shields MD (Physician) [facility] Service: Slurry Control Tender Progress Note [facility] 58 y.o[facility] [...] COPD, recurrent UTI, admitted on 04/06/14 in [facility] for nausea, vomiting previously ing ested [...] 04/14/141850 Date of Service: 04/14/141850 Status: Signed Category Consultant: Alireza Vides RPH (Pharmacist) vanco level came back high at 33.0. Will hold current dose and redraw a level tomorrow morn ing with am labs. Goal trough 15-20. onver roshan Transaction, Provider Unknown - 04/14/2014 1:36 PM PST Therapy Progress Note by Juma Bazzi PT at 04/14/14 1736 Author: Juma Bazzi PT Service: (none) Author Type: Physical Therapist Filed: 04/14/14 4689 Date of Service: 04/14/141335 Status: Signed Category Consultant: Juma Bazzi PT (Physical Therapist) 04/14/14 1336 PT Last Visit PT Received On 04/14/14 Reason for Treatment Deconditioning;Other (comment) (Acute Resp Failure; co-morbidities) Requires PT Follow Up Awaiting tx order Follow up PT Only? Yes (Further mobility assessment) PT Eval/Reassessment Date 04/14/14 Assistance Required 1 person;2 person Biologics Specialist Needed No Requires PT Follow Up Awaiting [...] pt's mentation progresses. Prior Function Level of [place] Independent with ADLs;Independent with functional mobility;Independe nt [...] Date 04/14/14 Assistance Required 1 person;2 person Biologics Specialist Needed No Precautions Other Precautions Fall risk; [...] 1211 Date of Service: 04/14/141209 Status: Signed Category Consultant: Deborah Torres () This a new pt. Attempted visit, but pt is sedated and on bi-pap. No familly present at this time. Chaplain Deborah Torres onver roshan Transaction, Provider Unknown - 04/14/2014 9:42 AM PST Case Management by LEVI Acharya at 04/14/1442 Author: LEVI Acharya Service: (none) Author Type: Assembler Hydraulic Backhoe Filed: 04/14/1443 Date of Service: 04/14/14941 Status: Signed Category Consultant: LEVI Acharya (Assembler Hydraulic Backhoe) 04/14/1439 Discharge Planning Evaluation Admitting Diagnosis acute [...] assist from . May need HHPT via [facility]. May n eed IPR?? DEMARCO MONTEZ onver roshan Transaction, Provider Unknown - 04/14/2014 9:29 AM PST Case Management by LEVI Acharya at 04/14/14928 Author: LEVI Acharya Service: (none) Author Type: Assembler Hydraulic Backhoe Filed: 04/14/1444 Date of Service: 04/14/14928 Status: Signed Category Consultant: LEVI Acharya (Assembler Hydraulic Backhoe) Pt is sleeping with oxymask on. She was extubated early this morning. is not at th e bedside. I called to obtain assessment. rZeferino fishman MD - 04/14/2014 5:29 AM PST Progress Notes by Zeferino Aly MD at 04/14/14528 Author: Zeferino Aly MD Service: Slurry Control Tender Author Type: Slurry Control Tender Filed: 04/14/14537 Date of Service: 04/14/14528 Status: Signed Category Consultant: Zeferino Aly MD (Physician) [facility] Service: Slurry Control Tender Progress Note [facility] 58 y.o[facility] [...] COPD, recurrent UTI, admitted on 04/06/14 in [facility] in [place] for nausea, vomiting previously ing ested food, [...] Notes by Bonnie Greenberg MD at 04/13/14 7428 Author: Bonnie Greenberg MD Service: Slurry Control Tender Author Type: Physician Filed: 04/13/14 7409 Date of Service: 04/13/14 1188 Status: Signed Category Consultant: Bonnie Greenberg MD (Physician) [facility] Service: Slurry Control Tender Progress Note Mackenzie Hartley 58 y.o. Hospital [...] COPD, recurrent UTI, admitted on 04/06/14 in [facility] for nausea, vomiting previously ing ested [...] Date of Service: 04/13/14 1015 Status: Signed Category Consultant: Osvaldo Allen RRT (Registered Respiratory Therapist) Tried to wean to PS/CPAP but she is not breathing regularly enough. Placed on PRVC with low RR & automode for now. onver roshan Transaction, Provider Unknown - 04/13/2014 9:57 AM PST Case Management by LEVI Acharya at 04/13/14956 Author: LEVI Acharya Service: (none) Author Type: Assembler Hydraulic Backhoe Filed: 04/13/145 Date of Service: 04/13/14956 Status: Addendum Category Consultant: LEVI Acharya (Assembler Hydraulic Backhoe) Related Notes: Original Note by LEVI Acharya (Assembler Hydraulic Backhoe) filed at 04/13/141043 Pt was transferred from [facility]. She is vented. has not called or v isited. I attempted to reach him by home phone ([phone]) however he did not answer. I [facility] stafff has left messages as well. I called the [place] [employer] and requested a drive-by to see if can be reached. [place] police will call me back after they have tried to make contact with . Addendum: Received t/c from pt's , Kole. He states that the police came to his ho me to request that he call us. He stated that we had been leaving messages on patient's cell phone. His cell number is [phone]. I asked him if he would be [...] prefe r that. He requested that the Slurry Control Tender call him. Provided Dr. Greenberg with 's [...] 04/13/1416 Date of Service: 04/13/14913 Status: Signed Category Consultant: Jaquelin Cat, RN (Registered Nurse) Received order [...] 04/12/142033 Date of Service: 04/12/142033 Status: Signed Category Consultant: Britni Shaffer RPH (Pharmacist) Renal Dosing Monitoring: Mackenzie Hartley 58 y.o. female Pharmacy dosing for renal function per Dr. Greenberg SCr 0.96, est. CrCl = 67 ml/min Plan per protocol: Medications dosed appropriately for current renal function. Pharmacy will continue monitoring patient for appropriate dosing per renal function. 04/12/2014 8:34 PM Pharmacist: Britni Shaffer onver roshan Transaction, Provider Unknown - 04/12/2014 8:33 PM PST Progress Notes by Britni Shaffer RPH at 04/12/142032 Author: Britni Shaffer RPH Service: (none) Author Type: Pharmacist Filed: 04/12/142032 Date of Service: 04/12/142032 Status: Signed Category Consultant: Britni Shaffer RPH (Pharmacist) Clinical Pharmacy Note: Initiation of Vancomycin Pharmacy Dosing Mackenzie Hartley 58 y.o. female 1.753 m (5' 9") 78.4 kg (172 lb 13.5 oz) Body mass index is 25.51 kg/(m^2). CREATININE Date Value Range Status 04/12/2014 0.96 0.50 - 1.00 mg/dL Final Testing performed at [facility] [place] [address];[place] [address] Estimated CrCl : CREATININE: 0.96 (04/12/14 1731) [...] H&P by Bonnie Greenberg MD at 04/12/14 9168 Author: Bonnie Greenberg MD Service: Slurry Control Tender Author Type: Physician Filed: 04/12/14 7865 Date of Service: 04/12/14 7515 Status: Addendum Category Consultant: Bonnie Greenberg MD (Physician) Related Notes: Original Note by Bonnie Greenberg MD (Physician) filed at 04/12 6257 [facility] Service: Slurry Control Tender Admission History & Physical Mackenzie Hartley 58 [...] COPD, recurrent UTI, admitted on 04/06 in [facility] for nausea, vomiting previously ingested food, [...] her code status. She was transferred to [facility] for further care. She arrived intubated, with [...] labs reviewed. Awaiting labs done here in [facility]. Na 139 K 4.4 Cl 105 BUN 16 Creatinine 0.86 Magnesium 1.6 Albumin 2.2 AST 28 ALT 8 WBC 15.8 Hgb 12.1/Hct 38.9 Micro gram positive cocci in blood CS on 04/09/14, grew staphylococcus capitis. IMAGING No imaging to review. Will obtain old imaging done in [facility] Echo done on 04/08/14 with [...] at 04/22/14 1436 Author: JENARO Perez Service: Slurry Control Tender Author Type: Slurry Control Tender Filed: 04/22/14 1439 Date of Service: 04/22/14 1436 Status: Signed Category Consultant: JENARO Perez (Nurse Practitioner) Procedure Orders: 1. Insert arterial line [[id number]] ordered by JENARO Perez at 04/22/14 1436 Post-procedure Diagnoses: 1. Acute gastroenteritis [558.9] 2. Acute respiratory failure (HCC) [518.81] 3. Acute systolic heart failure (HCC) [428.21] 4. Aspiration pneumonia ([facility]) [507.0] 5. COPD (chronic obstructive pulmonary disease) (HCC) [496] 6. 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 Microcytic anemia [280.9] 9. Narcotic dependence (HCC) [304.90] 10. PAF (paroxysmal atrial fibrillation) ([facility]) [427.31] 11. Sepsis(995.91) [995.91] [facility] Service: Slurry Control Tender BEDSIDE PROCEDURE NOTE Insert Arterial Line Date/Time: 04/22/2014 2:36 PM Performed by: CARLA KAUR Authorized by: CARLA KAUR Consent: The procedure was performed in an emergent situation. Patient identity confirmed: arm band Time out: Immediately prior to procedure a "time out" was called to verify the correct starr ent, procedure, equipment, support coordinator and site/side marked as required. [...] Post-procedure CMS: unchanged JENARO PEREZ 04/22/2014 Rahul Rviera ARNP - 04/22/2014 2:31 PM PSTFormatting of this note might be different from t velvet original. Procedures by JENARO Perez at 04/22/14 1431 Author: JENARO Perez Service: Slurry Control Tender Author Type: Slurry Control Tender Filed: 04/22/14 1436 Date of Service: 04/22/141430 Status: Signed Category Consultant: JENARO Perez (Nurse Practitioner) Procedure Orders: 1. Central line [[id number]] ordered by JENARO Perez at 04/22/14 1431 Post-procedure Diagnoses: 1. Acute gastroenteritis [558.9] 2. Acute respiratory failure (HCC) [518.81] 3. Acute systolic heart failure (HCC) [428.21] 4. Aspiration pneumonia ([facility]) [507.0] 5. COPD (chronic obstructive pulmonary disease) (HCC) [496] 6. 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 Microcytic anemia [280.9] 9. Narcotic dependence (HCC) [304.90] 10. PAF (paroxysmal atrial fibrillation) ([facility]) [427.31] 11. Sepsis(995.91) [995.91] [facility] Service: Slurry Control Tender BEDSIDE PROCEDURE NOTE Central Line Date/Time: 04/22/2014 2:32 PM Performed by: CARLA KAUR Authorized by: CARLA KAUR Consent: The procedure was performed in an emergent situation. Patient identity confirmed: arm band Time out: Immediately prior to procedure a "time out" was called to verify the correct starr ent, procedure, equipment, support coordinator and site/side marked as required. [...] Procedures by Bony Petty MD at 04/21/14 5361 Author: Bony Petty MD Service: Gastroenterology Author Type: Physician Filed: 04/23/14 1309 Date of Service: 04/21/149 Status: Signed Category Consultant: Bony Petty MD (Physician) Related Notes: Original Note by Bony Petty MD (Physician) filed at 04/21/14 1023 Procedure Orders: 1. Case Request Operating Room: ESOPHAGOGASTRODUODENOSCOPY [[id number]] ordered by Bony steven MD at 04/21/14 1521 Pre-procedure Diagnoses: 1. Odynophagia [787.20] 2. Weight loss [783.21] 3. Aspiration pneumonia (HCC) [507.0] Post-procedure Diagnoses: 1. Benign esophageal stricture [530.3] 2. Reflux esophagitis [530.11] 3. Gastritis [535.50] Procedures: 1. UPR GI NDSC DILAT GSTR OUTLET FOR OBSTRCJ [93547 (CPT)] DATE OF SERVICE April 21, 2014 [...] at 04/16/14517 Author: Jannet Shields MD Service: Slurry Control Tender Author Type: Slurry Control Tender Filed: 04/16/14517 Date of Service: 04/16/14517 Status: Signed Category Consultant: Jannet Shields MD (Physician) [facility] Service: Slurry Control Tender Procedure: Oral Trachel Intubation Indication: Respiratory Failure [...] the tube. Complications: None Jannet Shields MD, [facility] document[facility] d in this encounter Consult Notes Bogdan Moser DO - 04/23/2014 12:58 AM PST Consults by Bogdan Moser DO at 04/23/1457 Author: Bogdan Moser DO Service: General Surgery Author Type: Physician Filed: 04/23/14 0109 Date of Service: 04/23/1457 Status: Signed Category Consultant: Bogdan Moser DO (Physician) Consult Orders: 1. Inpatient consult to Trauma Surgery [[id number]] ordered by Trice Fagan MD at 04/11 [...] a lar ge LEFT rectus hematoma measuring [id number]. This was presumed to be the source [...] Procedure: ESOPHAGOGASTRODUODENOSCOPY; Surgeon: Bony Petty MD; Location: [facility] BEDSIDE PROCEDURE; Service: Gastroenterology; Laterality: N/A; Allergies [...] sulfate, nystatin, nystatin, ondansetron OR ondansetron, pancrelipase (Fjh-Llgg-Fso l) 10,000 units, petrolatum, phosphorus OR sodium [...] fibrillation) Stricture esophagus dilated with bougue 20 grenadian 04/21/2014 ASSESSMENT & PLAN Hemorrhagic shock. Likely [...] Consult* by Jacoby Muñoz RD at 04/13/14 4961 Author: Jacoby Muñoz RD Service: (none) Author Type: Registered Dietitian Filed: 04/13/14 5577 Date of Service: 04/13/145 Status: Signed Category Consultant: Jacoby Muñoz RD (Registered Dietitian) Nutrition Assessment [...] to admi t as pt transferred from [facility], recent nausea, emesis, abdominal discomfort. [...] 04/22/14152 Date of Service: 04/22/14152 Status: Signed Category Consultant: Nahun Puckett RN (Registered Nurse) Problem: Pain [...] 04/21/14249 Date of Service: 04/21/14249 Status: Signed Category Consultant: Nahun Puckett RN (Registered Nurse) Problem: Pain [...] at 04/20/142014 Author: Trice Fagan MD Service: Slurry Control Tender Author Type: Slurry Control Tender Filed: 04/20/142033 Date of Service: 04/20/142014 Status: Addendum Category Consultant: Trice Fagan MD (Physician) Related Notes: Original [...] at 04/19/142017 Author: Trice Fagan MD Service: Slurry Control Tender Author Type: Slurry Control Tender Filed: 04/19/142021 Date of Service: 04/19/142017 Status: Signed Category Consultant: Trice Fagan MD (Physician) Was called into [...] Date of Service: 04/19/14 1047 Status: Signed Category Consultant: Mary Garrett RN (Registered Nurse) Daily care [...] Date of Service: 04/19/14 104 Status: Signed Category Consultant: Mary Garrett RN (Registered Nurse) Daily care needs are met Progressing Enteral feeds are at goal rate lan o f Jerald - Alexandro Stanley MD - 04/16/2014 3:45 PM PSTFormatting of this note might be diffe rent from the original. Plan of Care by Alexandro Stanley MD at 04/16/14 1545 Author: Alexandro Stanley MD Service: (none) Author Type: Slurry Control Tender Filed: 04/16/14 1549 Date of Service: 04/16/14 154 Status: Signed Category Consultant: Alexandro Stanley MD (Physician) D/w with tuan [...] code status to full code in the [facility]. We planned to give her another [...] 04/14/141901 Date of Service: 04/14/141901 Status: Signed Category Consultant: Abhi Matute RN (Registered Nurse) Problem: Transfers [...] a dusky-brown | | | friable tissue. Monkey Breeder sections are submitted in cassettes | | | (A1-A3). FM MICROSCOPIC EXAMINATION: Histologic sections of all | | | submitted blocks are examined by light microscopy. These findings, | | | together with the gross examination, support the pathologic diagnosis. | | | PERFORMING LABORATORY: Professional interpretation and technical | | | preparation was performed by [facility] | | | [address] [address] (Information Technology Architect: | | | Raphael Yee M.D.; IA#: [id number]). Diagnostician: Salty Bolton | | | King [...] | | | Fingerstick | performed at [facility];[address] | | LAB | | | | [address];[place] | | | | | | [address] | | | | + + + [...] EXTERNAL | | | | performed at [facility];[address] | | LAB | | | | [address];[place] | | | | | | [address] | | | | + + + + + + | Non- | 3.62 (L)Comment: Testing | 3.70 - 5.10 | EXTERNAL | | | Red Blood | performed at [facility];[address] | M/uL | LAB | | | Cells | [address];[place] | | | | | Counted | [address] | | | | + + + + + + | Hemoglobin | 10.5 (L)Comment: Testing | 11.3 - 15.5 | EXTERNAL | | | | performed at [facility];[address] | g/dL | LAB | | | | [address];[place] | | | | | | [address] | | | | + + + + + + | Hematocrit, | 31.3 (L)Comment: Testing | 34.0 - 46.0 % | EXTERNAL | | | POC | performed at [facility];[address] | | LAB | | | | [address];[place] | | | | | | [address] | | | | + + + + + + | MCV | 86.5Comment: Testing | 80.0 - 100.0 fl | EXTERNAL | | | | performed at [facility];[address] | | LAB | | | | [address];[place] | | | | | | [address] | | | | + + + + + + | MCH | 29.1Comment: Testing | 27.0 - 34.0 pg | EXTERNAL | | | | performed at [facility];[address] | | LAB | | | | [address];[place] | | | | | | [address] | | | | + + + + + + | MCHC | 33.6Comment: Testing | 32.0 - 35.5 | EXTERNAL | | | | performed at [facility];888 | g/dL | LAB | | | | [address];[place] | | | | | | [address] | | | | + + + + + + | RDW-CV | 46.8Comment: Testing | 37 - 53 fl | EXTERNAL | | | | performed at [facility];[address] | | LAB | | | | [address];[place] | | | | | | [address] | | | | + + + + + + | Platelet | 185Comment: Testing | 150 - 400 K/uL | EXTERNAL | | | Count | performed at [facility];[address] | | LAB | | | Plasma | [address];[place] | | | | | | [address] | | | | + + + + + + | MPV | 7.2Comment: Testing | fl | EXTERNAL | | | | performed at [facility];[address] | | LAB | | | | [address];[place] | | | | | | [address] | | | | + + + + + + | Differentia | MANUALComment: Testing | | EXTERNAL | | | l Type | performed at [facility];[address] | | LAB | | | | [address];[place] | | | | | | [address] | | | | + + + + + + | Nucleated | 2 (H)Comment: Testing | /100WBC | EXTERNAL | | | Red Blood | performed at [facility];[address] | | LAB | | | Cells | [address];[place] | | | | | | [address] | | | | + + + + + + | Segmented | 71Comment: Testing | % | EXTERNAL | | | Neutrophils | performed at [facility];[address] | | LAB | | | Manual | [address];[place] | | | | | | [address] | | | | + + + + + + | % Bands | 13Comment: Testing | % | EXTERNAL | | | | performed at [facility];[address] | | LAB | | | | [address];[place] | | | | | | [address] | | | | + + + + + + | % | 1Comment: Testing | % | EXTERNAL | | | Metamyelocy | performed at [facility];[address] | | LAB | | | petros | [address];[place] | | | | | | [address] | | | | + + + + + + | Lymphocytes | 12Comment: Testing | % | EXTERNAL | | | Manual | performed at [facility];[address] | | LAB | | | | [address];[place] | | | | | | [address] | | | | + + + + + + | Monocytes | 3Comment: Testing | % | EXTERNAL | | | Manual | performed at [facility];[address] | | LAB | | | | [address];[place] | | | | | | [address] | | | | + + + + + + | Absolute | 8.3 (H)Comment: Testing | 1.9 - 7.4 K/uL | EXTERNAL | | | Neutrophils | performed at [facility];[address] | | LAB | | | | [address];[place] | | | | | | [address] | | | | + + + + + + | Bands | 1.5 (H)Comment: Testing | 0 - 0.2 K/uL | EXTERNAL | | | Manual | performed at [facility];[address] | | LAB | | | | [address];[place] | | | | | | [address] | | | | + + + + + + | Absolute | 0.1 (H)Comment: Testing | K/uL | EXTERNAL | | | Metamyelocy | performed at [facility];[address] | | LAB | | | petros | [address];[place] | | | | | | [address] | | | | + + + + + + | Absolute | 1.4Comment: Testing | 1.0 - 3.9 K/uL | EXTERNAL | | | Lymphocytes | performed at [facility];[address] | | LAB | | | | [address];[place] | | | | | | [address] | | | | + + + + + + | Absolute | 0.4Comment: Testing | 0 - 0.8 K/uL | EXTERNAL | | | Monocytes | performed at [facility];[address] | | LAB | | | | [address];[place] | | | | | | [address] | | | | + + + + + + | RBC | RBC AND PLT MORPHOLOGY | | EXTERNAL | | | Morphology | APPEAR NORMALComment: | | LAB | | | | Testing performed at | | | | | | [facility];[address];[place] [address] | | | | + + + [...] | | | Fingerstick | performed at [facility];[address] | | LAB | | | | [address];[place], [place] | | | | | | [address] | | | | + + + [...] EXTERNAL | | | | performed at [facility];[address] | mmol/L | LAB | | | | [address];[place], [place] | | | | | | [address] | | | | + + + [...] EXTERNAL | | | | performed at [facility];[address] | | LAB | | | | [address];[place], [place] | | | | | | [address] | | | | + + + [...] EXTERNAL | | | | performed at [facility] | | LAB | | | | [address];[place], [place] | | | | | | [address] | | | | + + + [...] | | | | | | at [facility];[address] [place] [address] | | | | | | [facility];[place] [address] | | | | + + + [...] | | | Patient | performed at [facility];8 | | LAB | | | | [address];[place] | | | | | | [address] | | | | + + + [...] | | | | | performed at [facility];[address] | | | | | | [address];[place], [place] | | | | | | [address] | | | | + + + [...] EXTERNAL | | | | performed at [facility];[address] | | LAB | | | | [address];[place], [place] | | | | | | [address] | | | | + + + [...] EXTERNAL | | | | performed at [facility];[address] | | LAB | | | | [address];[place] | | | | | | [address] | | | | + + + + + + | Non- | 2.14 (L)Comment: Testing | 3.70 - 5.10 | EXTERNAL | | | Red Blood | performed at [facility];[address] | M/uL | LAB | | | Cells | [address];[place] | | | | | Counted | [address] | | | | + + + + + + | Hemoglobin | 6.3 (LL)Comment: CALLED | 11.3 - 15.5 | EXTERNAL | | | | NURSING BEATRICE SCOTT M | g/dL | LAB | | | | AT 0450 BY KMREAD BACK | | | | | | RESULTS VERIFIEDTesting | | | | | | performed at [facility] | | | | | | [address];[place] | | | | | | [address] | | | | + + + + + + | Hematocrit, | 18.5 (LL)Comment: CALLED | 34.0 - 46.0 % | EXTERNAL | | | POC | BEATRICE ANN | | LAB | | | | M AT 0450 BY KMREAD BACK | | | | | | RESULTS VERIFIEDTesting | | | | | | performed at [facility] | | | | | | [address];[place] | | | | | | [address] | | | | + + + + + + | MCV | 86.4Comment: Testing | 80.0 - 100.0 fl | EXTERNAL | | | | performed at [facility] | | LAB | | | | [address];[place] | | | | | | [address] | | | | + + + + + + | MCH | 29.4Comment: Testing | 27.0 - 34.0 pg | EXTERNAL | | | | performed at [facility] | | LAB | | | | [address];[place] | | | | | | [address] | | | | + + + + + + | MCHC | 34.1Comment: Testing | 32.0 - 35.5 | EXTERNAL | | | | performed at [facility] | g/dL | LAB | | | | [address];[place] | | | | | | [address] | | | | + + + + + + | RDW-CV | 42.4Comment: Testing | 37 - 53 fl | EXTERNAL | | | | performed at [facility];[address] | | LAB | | | | [address];[place] | | | | | | [address] | | | | + + + + + + | Platelet | 139 (L)Comment: Testing | 150 - 400 K/uL | EXTERNAL | | | Count | performed at [facility] | | LAB | | | Plasma | [address];[place] | | | | | | [address] | | | | + + + + + + | MPV | 7.3Comment: Testing | fl | EXTERNAL | | | | performed at [facility];[address] | | LAB | | | | [address];[place] | | | | | | [address] | | | | + + + + + + | Differentia | MANUALComment: Testing | | EXTERNAL | | | l Type | performed at [facility];[address] | | LAB | | | | [address];[place] | | | | | | [address] | | | | + + + + + + | Nucleated | 3 (H)Comment: Testing | /100WBC | EXTERNAL | | | Red Blood | performed at [facility];[address] | | LAB | | | Cells | [address];[place] | | | | | | [address] | | | | + + + + + + | Segmented | 85Comment: Testing | % | EXTERNAL | | | Neutrophils | performed at [facility];[address] | | LAB | | | Manual | [address];[place] | | | | | | [address] | | | | + + + + + + | % Bands | 3Comment: Testing | % | EXTERNAL | | | | performed at [facility];[address] | | LAB | | | | [address];[place] | | | | | | [address] | | | | + + + + + + | % | 1Comment: Testing | % | EXTERNAL | | | Metamyelocy | performed at [facility];[address] | | LAB | | | petros | [address];[place] | | | | | | [address] | | | | + + + + + + | Lymphocytes | 8Comment: Testing | % | EXTERNAL | | | Manual | performed at [facility];[address] | | LAB | | | | [address];[place] | | | | | | [address] | | | | + + + + + + | Monocytes | 3Comment: Testing | % | EXTERNAL | | | Manual | performed at [facility];[address] | | LAB | | | | [address];[place] | | | | | | [address] | | | | + + + + + + | Absolute | 12.9 (H)Comment: Testing | 1.9 - 7.4 K/uL | EXTERNAL | | | Neutrophils | performed at [facility];[address] | | LAB | | | | [address];[place] | | | | | | [address] | | | | + + + + + + | Bands | 0.5 (H)Comment: Testing | 0 - 0.2 K/uL | EXTERNAL | | | Manual | performed at [facility];[address] | | LAB | | | | [address];[place] | | | | | | [address] | | | | + + + + + + | Absolute | 0.2 (H)Comment: Testing | K/uL | EXTERNAL | | | Metamyelocy | performed at [facility];[address] | | LAB | | | petros | [address];[place] | | | | | | [address] | | | | + + + + + + | Absolute | 1.2Comment: Testing | 1.0 - 3.9 K/uL | EXTERNAL | | | Lymphocytes | performed at [facility];[address] | | LAB | | | | [address];[place] | | | | | | [address] | | | | + + + + + + | Absolute | 0.5Comment: Testing | 0 - 0.8 K/uL | EXTERNAL | | | Monocytes | performed at [facility];[address] | | LAB | | | | [address];[place] | | | | | | [address] | | | | + + + + + + | RBC | 1+Comment: POLYNORMAL | | EXTERNAL | | | Morphology | PLT MORPHTesting | | LAB | | | | performed at [facility];[address] | | | | | | [address];[place] | | | | | | [address] | | | | | | | [...] EXTERNAL | | | | performed at [facility], [address] | | LAB | | | | [address], | | | | | | [place] [address] | | | | + + + [...] EXTERNAL | | | | performed at [facility] | | LAB | | | | [address];[place] | | | | | | [address] | | | | + + + [...] EXTERNAL | | | | performed at [facility], [address] | | LAB | | | | [address], | | | | | | [place] [address] | | | | + + + [...] | | | | | | at [facility], [address] | | | | | | [address], | | | | | | [place] [address] | | | | + + + [...] | | | | | | [place] [address] | | | | + + + + + + | Albumin | 2.3 (L)Comment: Testing | 3.6 - 5.0 g/dL | EXTERNAL | | | | performed at [facility], [address] | | LAB | | | | [address], | | | | | | [place] [address] | | | | + + + + + + | Bilirubin | 1.0Comment: Testing | 0.1 - 1.5 mg/dL | EXTERNAL | | | Total | performed at [facility], [address] | | LAB | | | | [address], | | | | | | [place] [address] | | | | + + + + + + | Bilirubin | 0.4 (H)Comment: Testing | 0.0 - 0.3 mg/dL | EXTERNAL | | | Direct | performed at [facility], [address] | | LAB | | | | [address], | | | | | | [place] [address] | | | | + + + + + + | ALP, | 44Comment: Testing | 35 - 115 U/L | EXTERNAL | | | External | performed at [facility], [address] | | LAB | | | | [address], | | | | | | [place] [address] | | | | + + + + + + | AST | 1,692 (H)Comment: | 10 - 45 U/L | EXTERNAL | | | | Testing performed at | | LAB | | | | [facility], [address] | | | | | | [place] | | | | | | [address] | | | | + + + + + + | ALT | 901 (H)Comment: Testing | 10 - 65 U/L | EXTERNAL | | | | performed at [facility], [address] | | LAB | | | | [address], | | | | | | [place] [address] | | | | + + + [...] | | | | | [place] [address] | | | | + + + + + + | K | 3.7Comment: Testing | 3.5 - 4.9 | EXTERNAL | | | | performed at [facility], [address] | mmol/L | LAB | | | | [address], | | | | | | [place] [address] | | | | + + + + + + | Cl | 113 (H)Comment: Testing | 99 - 109 mmol/L | EXTERNAL | | | | performed at [facility], [address] | | LAB | | | | [address], | | | | | | [place] [address] | | | | + + + + + + | CO2 | 28Comment: Testing | 23 - 32 mmol/L | EXTERNAL | | | | performed at [facility], [address] | | LAB | | | | [address], | | | | | | [place] [address] | | | | + + + + + + | Anion Gap | 10Comment: Testing | 5 - 20 mmol/L | EXTERNAL | | | | performed at [facility], [address] | | LAB | | | | [address], | | | | | | [place] [address] | | | | + + + + + + | Glucose, | 146 (H)Comment: Testing | 65 - 99 mg/dL | EXTERNAL | | | Fasting | performed at [facility], [address] | | LAB | | | | [address], | | | | | | [place] [address] | | | | + + + + + + | BUN | 37 (H)Comment: Testing | 8 - 25 mg/dL | EXTERNAL | | | | performed at [facility], [address] | | LAB | | | | [address], | | | | | | [place] [address] | | | | + + + + + + | Creatinine | 1.21 (H)Comment: Testing | 0.50 - 1.00 | EXTERNAL | | | | performed at [facility], [address] | mg/dL | LAB | | | | [address], | | | | | | [place] [address] | | | | + + + + + + | BUN/Creatin | 31Comment: Testing | | EXTERNAL | | | ine Ratio | performed at [facility], [address] | | LAB | | | | [address], | | | | | | [place] [address] | | | | + + + + + + | Calcium | 7.9 (L)Comment: Testing | 8.5 - 10.2 | EXTERNAL | | | | performed at [facility], [address] | mg/dL | LAB | | | | [address], | | | | | | [place] [address] | | | | + + + [...] | | | | | | at [facility], [address] | | | | | | [place] [address], | | | | | | [place] [address] | | | | + + + [...] EXTERNAL | | | | performed at [facility] | | LAB | | | | [address];[place] | | | | | | [address] | | | | + + + + + + | Non- | 3.39 (L)Comment: Testing | 3.70 - 5.10 | EXTERNAL | | | Red Blood | performed at [facility] | M/uL | LAB | | | Cells | [address];[place] | | | | | Counted | [address] | | | | + + + + + + | Hemoglobin | 9.6 (L)Comment: Testing | 11.3 - 15.5 | EXTERNAL | | | | performed at [facility];[place] | g/dL | LAB | | | | [address];[place] | | | | | | [address] | | | | + + + + + + | Hematocrit, | 29.4 (L)Comment: Testing | 34.0 - 46.0 % | EXTERNAL | | | POC | performed at [facility];[address] | | LAB | | | | [address];[place] | | | | | | [address] | | | | + + + + + + | MCV | 86.8Comment: Testing | 80.0 - 100.0 fl | EXTERNAL | | | | performed at [facility];[address] | | LAB | | | | [address];[place] | | | | | | [address] | | | | + + + + + + | MCH | 28.2Comment: Testing | 27.0 - 34.0 pg | EXTERNAL | | | | performed at [facility];[address] | | LAB | | | | [address];[place] | | | | | | [address] | | | | + + + + + + | MCHC | 32.5Comment: Testing | 32.0 - 35.5 | EXTERNAL | | | | performed at [facility];888 | g/dL | LAB | | | | [address];[place] | | | | | | [address] | | | | + + + + + + | RDW-CV | 42.4Comment: Testing | 37 - 53 fl | EXTERNAL | | | | performed at [facility];[address] | | LAB | | | | [address];[place] | | | | | | [address] | | | | + + + + + + | Platelet | 57 (L)Comment: Testing | 150 - 400 K/uL | EXTERNAL | | | Count | performed at [facility];[address] | | LAB | | | Plasma | [address];[place] | | | | | | [address] | | | | + + + + + + | MPV | 8.8Comment: Testing | fl | EXTERNAL | | | | performed at [facility];[address] | | LAB | | | | [address];[place] | | | | | | [address] | | | | + + + + + + | Differentia | MANUALComment: Testing | | EXTERNAL | | | l Type | performed at [facility];[address] | | LAB | | | | [address];[place] | | | | | | [address] | | | | + + + + + + | Nucleated | 2 (H)Comment: Testing | /100WBC | EXTERNAL | | | Red Blood | performed at [facility];[address] | | LAB | | | Cells | [address];[place] | | | | | | [address] | | | | + + + + + + | Segmented | 76Comment: Testing | % | EXTERNAL | | | Neutrophils | performed at [facility];[address] | | LAB | | | Manual | [address];[place] | | | | | | [address] | | | | + + + + + + | % Bands | 10Comment: Testing | % | EXTERNAL | | | | performed at [facility];[address] | | LAB | | | | [address];[place] | | | | | | [address] | | | | + + + + + + | % | 2Comment: Testing | % | EXTERNAL | | | Metamyelocy | performed at [facility];[address] | | LAB | | | petros | [address];[place] | | | | | | [address] | | | | + + + + + + | Lymphocytes | 9Comment: Testing | % | EXTERNAL | | | Manual | performed at [facility];[address] | | LAB | | | | [address];[place] | | | | | | [address] | | | | + + + + + + | Monocytes | 3Comment: Testing | % | EXTERNAL | | | Manual | performed at [facility];[address] | | LAB | | | | [address];[place] | | | | | | [address] | | | | + + + + + + | Absolute | 11.0 (H)Comment: Testing | 1.9 - 7.4 K/uL | EXTERNAL | | | Neutrophils | performed at [facility];[address] | | LAB | | | | [address];[place] | | | | | | [address] | | | | + + + + + + | Bands | 1.5 (H)Comment: Testing | 0 - 0.2 K/uL | EXTERNAL | | | Manual | performed at [facility];[address] | | LAB | | | | [address];[place] | | | | | | [address] | | | | + + + + + + | Absolute | 0.3 (H)Comment: Testing | K/uL | EXTERNAL | | | Metamyelocy | performed at [facility];[address] | | LAB | | | petros | [address];[place] | | | | | | [address] | | | | + + + + + + | Absolute | 1.3Comment: Testing | 1.0 - 3.9 K/uL | EXTERNAL | | | Lymphocytes | performed at [facility];[address] | | LAB | | | | [address];[place] | | | | | | [address] | | | | + + + + + + | Absolute | 0.4Comment: Testing | 0 - 0.8 K/uL | EXTERNAL | | | Monocytes | performed at [facility];[address] | | LAB | | | | [address];[place] | | | | | | [address] | | | | + + + + + + | Platelet | DECREASEDComment: | | EXTERNAL | | | Estimate | Testing performed at | | LAB | | | | [facility];[address];[place] [address] | | | | + + + + + + | RBC | 1+Comment: POLYTesting | | EXTERNAL | | | Morphology | performed at [facility];[address] | | LAB | | | | [address];[place] | | | | | | [address] | | | | | | | [...] | | | Fingerstick | performed at [facility];[address] | | LAB | | | | [address];[place] | | | | | | [address] | | | | + + + [...] EXTERNAL | | | | performed at [facility];[address] | | LAB | | | | [address];[place] | | | | | | [address] | | | | + + + + + + | PCO2 ART | 44Comment: Testing | 35 - 45 mmHg | EXTERNAL | | | | performed at [facility];[address] | | LAB | | | | [address];[place] | | | | | | [address] | | | | + + + + + + | PO2 ART | 251 (H)Comment: Testing | 80 - 105 mmHg | EXTERNAL | | | | performed at [facility];[address] | | LAB | | | | [address];[place] | | | | | | [address] | | | | + + + + + + | HCO3 ART | 24Comment: Testing | 22 - 26 mmol/L | EXTERNAL | | | | performed at [facility];[address] | | LAB | | | | [address];[place] | | | | | | [address] | | | | + + + + + + | POC | 26Comment: Testing | 23 - 27 mEq/L | EXTERNAL | | | APPEARANCE | performed at [facility];[address] | | LAB | | | UA | [address];[place] | | | | | | [address] | | | | + + + + + + | Base | 1Comment: Testing | 0.0 - 2.0 | EXTERNAL | | | deficit | performed at [facility];[address] | mmol/L | LAB | | | | [address];[place] | | | | | | [address] | | | | + + + + + + | O2 SAT ART | 100 (H)Comment: Testing | 95 - 98 % | EXTERNAL | | | | performed at [facility];[address] | | LAB | | | | [address];[place] | | | | | | [address] | | | | + + + + + + | Sodium, POC | 146 (H)Comment: Testing | 135 - 145 mEq/L | EXTERNAL | | | | performed at [facility];[address] | | LAB | | | | [address];[place] | | | | | | [address] | | | | + + + + + + | Potassium, | 4.5Comment: Testing | 3.5 - 5.0 mEq/L | EXTERNAL | | | POC | performed at [facility];[address] | | LAB | | | | [address];[place] | | | | | | [address] | | | | + + + + + + | Ionized | 0.91 (L)Comment: Testing | 1.12 - 1.32 | EXTERNAL | | | Calcium, | performed at [facility];888 | mmol/L | LAB | | | POC | [address];[place] | | | | | | [address] | | | | + + + + + + | Glucose, | 232 (H)Comment: Testing | 65 - 99 mg/dL | EXTERNAL | | | POC | performed at [facility];[address] | | LAB | | | | [address];[place] | | | | | | [address] | | | | + + + + + + | Hematocrit, | 32 (L)Comment: Testing | 35.0 - 46.0 % | EXTERNAL | | | POC | performed at [facility];[address] | | LAB | | | | [address];[place] | | | | | | [address] | | | | + + + + + + | Hemoglobin, | 10.9 (L)Comment: Testing | 11.6 - 15.5 | EXTERNAL | | | POC | performed at [facility];888 | g/dL | LAB | | | | [address];[place] | | | | | | [address] | | | | + + + [...] | | | | | | ACUTE OH CKTRP PHONED TO | | | | | | RUDI Patiño AT 0339 BY | | | | | | LJREAD BACK RESULTS | | | | | | VERIFIEDTesting | | | | | | performed at [facility];[address] | | | | | | [address];[place], [place] | | | | | | [address] | | | | + + + [...] | | | M AT 0145 BY ED01 BACK | | | | | | RESULTS VERIFIEDTesting | | | | | | performed at [facility];[address] | | | | | | [address];[place] | | | | | | [address] | | | | + + + + + + | Non- | 3.32 (L)Comment: Testing | 3.70 - 5.10 | EXTERNAL | | | Red Blood | performed at [facility];888 | M/uL | LAB | | | Cells | [address];[place] | | | | | Counted | [address] | | | | + + + + + + | Hemoglobin | 9.7 (L)Comment: Testing | 11.3 - 15.5 | EXTERNAL | | | | performed at [facility];888 | g/dL | LAB | | | | [address];[place] | | | | | | [address] | | | | + + + + + + | Hematocrit, | 29.3 (L)Comment: Testing | 34.0 - 46.0 % | EXTERNAL | | | POC | performed at [facility];[address] | | LAB | | | | [address];[place] | | | | | | [address] | | | | + + + + + + | MCV | 88.5Comment: Testing | 80.0 - 100.0 fl | EXTERNAL | | | | performed at [facility];[address] | | LAB | | | | [address];[place] | | | | | | [address] | | | | + + + + + + | MCH | 29.1Comment: Testing | 27.0 - 34.0 pg | EXTERNAL | | | | performed at [facility];[address] | | LAB | | | | [address];[place] | | | | | | [address] | | | | + + + + + + | MCHC | 32.9Comment: Testing | 32.0 - 35.5 | EXTERNAL | | | | performed at [facility];888 | g/dL | LAB | | | | [address];[place] | | | | | | [address] | | | | + + + + + + | RDW-CV | 45.9Comment: Testing | 37 - 53 fl | EXTERNAL | | | | performed at [facility];[address] | | LAB | | | | [address];[place] | | | | | | [address] | | | | + + + + + + | Platelet | 155Comment: Testing | 150 - 400 K/uL | EXTERNAL | | | Count | performed at [facility];888 | | LAB | | | Plasma | [address];[place] | | | | | | [address] | | | | + + + + + + | MPV | 8.4Comment: Testing | fl | EXTERNAL | | | | performed at [facility];[address] | | LAB | | | | [address];[place] | | | | | | [address] | | | | + + + + + + | Differentia | MANUALComment: Testing | | EXTERNAL | | | l Type | performed at [facility];[address] | | LAB | | | | [address];[place] | | | | | | [address] | | | | + + + + + + | Nucleated | 2 (H)Comment: Testing | /100WBC | EXTERNAL | | | Red Blood | performed at [facility];888 | | LAB | | | Cells | [address];[place] | | | | | | [address] | | | | + + + + + + | Segmented | 69Comment: Testing | % | EXTERNAL | | | Neutrophils | performed at [facility];[address] | | LAB | | | Manual | [address];[place] | | | | | | [address] | | | | + + + + + + | % Bands | 7Comment: Testing | % | EXTERNAL | | | | performed at [facility];[address] | | LAB | | | | [address];[place] | | | | | | [address] | | | | + + + + + + | % | 4Comment: Testing | % | EXTERNAL | | | Metamyelocy | performed at [facility];[address] | | LAB | | | petros | [address];[place] | | | | | | [address] | | | | + + + + + + | % | 2Comment: Testing | % | EXTERNAL | | | Myelocytes | performed at [facility];[address] | | LAB | | | | [address];[place] | | | | | | [address] | | | | + + + + + + | Lymphocytes | 10Comment: Testing | % | EXTERNAL | | | Manual | performed at [facility] | | LAB | | | | [address];[place] | | | | | | [address] | | | | + + + + + + | Monocytes | 8Comment: Testing | % | EXTERNAL | | | Manual | performed at [facility] | | LAB | | | | [address];[place] | | | | | | [address] | | | | + + + + + + | Absolute | 21.7 (H)Comment: Testing | 1.9 - 7.4 K/uL | EXTERNAL | | | Neutrophils | performed at [facility] | | LAB | | | | [address];[place] | | | | | | [address] | | | | + + + + + + | Bands | 2.2 (H)Comment: Testing | 0 - 0.2 K/uL | EXTERNAL | | | Manual | performed at [facility] | | LAB | | | | [address];[place] | | | | | | [address] | | | | + + + + + + | Absolute | 1.3 (H)Comment: Testing | K/uL | EXTERNAL | | | Metamyelocy | performed at [facility] | | LAB | | | [address] | [address];[place] | | | | | | [address] | | | | + + + + + + | Absolute | 0.6 (H)Comment: Testing | K/uL | EXTERNAL | | | Myelocytes | performed at [facility] | | LAB | | | | [address];[place] | | | | | | [address] | | | | + + + + + + | Absolute | 3.1Comment: Testing | 1.0 - 3.9 K/uL | EXTERNAL | | | Lymphocytes | performed at [facility] | | LAB | | | | [address];[place] | | | | | | [address] | | | | + + + + + + | Absolute | 2.5 (H)Comment: Testing | 0 - 0.8 K/uL | EXTERNAL | | | Monocytes | performed at [facility] | | LAB | | | | [address];[place] | | | | | | [address] | | | | + + + + + + | RBC | 1+Comment: POLYNORMAL | | EXTERNAL | | | Morphology | PLT MORPHTesting | | LAB | | | | performed at [facility] | | | | | | [address];[place] | | | | | | [address] | | | | | | | [...] EXTERNAL | | | | performed at [facility] | mmol/L | LAB | | | | [address];[place], [place] | | | | | | [address] | | | | + + + [...] EXTERNAL | | | | performed at [facility] | | LAB | | | | [address];[place] | | | | | | [address] | | | | + + + + + + | PH ART | 7.438Comment: Testing | 7.350 - 7.450 | EXTERNAL | | | | performed at [facility] | | LAB | | | | [address];[place] | | | | | | [address] | | | | + + + + + + | PCO2 ART | 31 (L)Comment: Testing | 35 - 45 mmHg | EXTERNAL | | | | performed at [facility] | | LAB | | | | [address];[place] | | | | | | [address] | | | | + + + + + + | PO2 ART | 115 (H)Comment: Testing | 80 - 105 mmHg | EXTERNAL | | | | performed at [facility] | | LAB | | | | [address];[place] | | | | | | [address] | | | | + + + + + + | HCO3 ART | 21 (L)Comment: Testing | 22 - 26 mmol/L | EXTERNAL | | | | performed at [facility] | | LAB | | | | [address];[place] | | | | | | [address] | | | | + + + + + + | POC | 22 (L)Comment: Testing | 23 - 27 mEq/L | EXTERNAL | | | APPEARANCE | performed at [facility] | | LAB | | | UA | [address];[place] | | | | | | [address] | | | | + + + + + + | Base | 3 (H)Comment: Testing | 0.0 - 2.0 | EXTERNAL | | | deficit | performed at [facility] | mmol/L | LAB | | | | [address];[place] | | | | | | [address] | | | | + + + + + + | O2 SAT ART | 99 (H)Comment: Testing | 95 - 98 % | EXTERNAL | | | | performed at [facility] | | LAB | | | | [address];[place] | | | | | | [address] | | | | + + + + + + | Sodium, POC | 149 (H)Comment: Testing | 135 - 145 mEq/L | EXTERNAL | | | | performed at [facility] | | LAB | | | | [address];[place] | | | | | | [address] | | | | + + + + + + | Potassium, | 4.3Comment: Testing | 3.5 - 5.0 mEq/L | EXTERNAL | | | POC | performed at [facility] | | LAB | | | | [address];[place] | | | | | | [address] | | | | + + + + + + | Ionized | 0.98 (L)Comment: Testing | 1.12 - 1.32 | EXTERNAL | | | Calcium, | performed at [facility]888 | mmol/L | LAB | | | POC | [address];[place] | | | | | | [address] | | | | + + + + + + | Glucose, | 52 (L)Comment: Testing | 65 - 99 mg/dL | EXTERNAL | | | POC | performed at [facility] | | LAB | | | | [address];[place] | | | | | | [address] | | | | + + + + + + | Hematocrit, | 23 (LL)Comment: Testing | 35.0 - 46.0 % | EXTERNAL | | | POC | performed at [facility];[address] | | LAB | | | | [address];[place] | | | | | | [address] | | | | + + + + + + | Hemoglobin, | 7.8 (LL)Comment: Testing | 11.6 - 15.5 | EXTERNAL | | | POC | performed at [facility];888 | g/dL | LAB | | | | [address];[place] | | | | | | [address] | | | | + + + + + + | Comment, | Tidal Volume = | | EXTERNAL | | | POC | 460Comment: Peep = 8Resp | | LAB | | | | Rate = 16Testing | | | | | | performed at [facility];[address] | | | | | | [address];[place] | | | | | | [address] | | | | + + + [...] | | | Fingerstick | performed at [facility];[address] | | LAB | | | | [address];[place], [place] | | | | | | [address] | | | | + + + [...] Conversion - 11/24/2018 6:38 AM PDT MACKENZIE [id number] years FemaleCT | | HEAD WO CONTRAST04/22/2014 [...] | | | Fingerstick | performed at [facility];[address] | | LAB | | | | [address];[place] | | | | | | [address] | | | | + + + [...] | | | Fingerstick | performed at [facility];888 | | LAB | | | | [address];[place] | | | | | | [address] | | | | + + + [...] EXTERNAL | | | | performed at [facility];888 | mmol/L | LAB | | | | [address];[place], [place] | | | | | | [address] | | | | + + + [...] EXTERNAL | | | | performed at [facility];[address] | | LAB | | | | [address];[place] | | | | | | [address] | | | | + + + [...] EXTERNAL | | | | performed at [facility];[address] | | LAB | | | | [address];[place], [place] | | | | | | [address] | | | | + + + [...] | | | | | | ACUTE [place] RESULT READ | | | | | | BACK BY:NAHUN Asher/RUDI AT | | | | | | 2112 SAMTesting | | | | | | performed at [facility];888 | | | | | | [facility];[place], [place] | | | | | | [address] | | | | + + + [...] | | | Patient | performed at [facility];888 | | LAB | | | | [address];[place] | | | | | | [address] | | | | + + + [...] | | | | | performed at [facility];[address] | | | | | | [address] [facility];[place], [place] | | | | | | [address] | | | | + + + [...] EXTERNAL | | | | performed at [facility];888 | | LAB | | | | [address];[place] | | | | | | [address] | | | | + + + [...] ON | | | | | | [id number] performed | | | | | | at [facility];[address];[place] [address] | | | | + + + + + + | Non- | 2.58 (L)Comment: Testing | 3.70 - 5.10 | EXTERNAL | | | Red Blood | performed at [facility];888 | M/uL | LAB | | | Cells | [address];[place] | | | | | Counted | [id number] | | | | + + + + + + | Hemoglobin | 7.3 (L)Comment: Testing | 11.3 - 15.5 | EXTERNAL | | | | performed at [facility];888 | g/dL | LAB | | | | [address];[place] | | | | | | [address] | | | | + + + + + + | Hematocrit, | 22.1 (L)Comment: Testing | 34.0 - 46.0 % | EXTERNAL | | | POC | performed at [facility];888 | | LAB | | | | [address];[place] | | | | | | [address] | | | | + + + + + + | MCV | 85.8Comment: Testing | 80.0 - 100.0 fl | EXTERNAL | | | | performed at [facility];888 | | LAB | | | | [address];[place] | | | | | | [address] | | | | + + + + + + | MCH | 28.5Comment: Testing | 27.0 - 34.0 pg | EXTERNAL | | | | performed at [facility];888 | | LAB | | | | [address];[place] | | | | | | [address] | | | | + + + + + + | MCHC | 33.2Comment: Testing | 32.0 - 35.5 | EXTERNAL | | | | performed at [facility];888 | g/dL | LAB | | | | [address];[place] | | | | | | [address] | | | | + + + + + + | RDW-CV | 43.3Comment: Testing | 37 - 53 fl | EXTERNAL | | | | performed at [facility];[address] | | LAB | | | | [address];[place] | | | | | | [address] | | | | + + + + + + | Platelet | 197Comment: Testing | 150 - 400 K/uL | EXTERNAL | | | Count | performed at [facility];[address] | | LAB | | | Plasma | [address];[place] | | | | | | [address] | | | | + + + + + + | MPV | 7.4Comment: Testing | fl | EXTERNAL | | | | performed at [facility];[address] | | LAB | | | | [address];[place] | | | | | | [address] | | | | + + + + + + | Differentia | MANUALComment: Testing | | EXTERNAL | | | l Type | performed at [facility];[address] | | LAB | | | | [address];[place] | | | | | | [address] | | | | + + + + + + | Nucleated | 6 (H)Comment: Testing | /100WBC | EXTERNAL | | | Red Blood | performed at [facility];[address] | | LAB | | | Cells | [address];[place] | | | | | | [address] | | | | + + + + + + | Segmented | 69Comment: Testing | % | EXTERNAL | | | Neutrophils | performed at [facility];[address] | | LAB | | | Manual | [address];[place] | | | | | | [address] | | | | + + + + + + | % Bands | 7Comment: Testing | % | EXTERNAL | | | | performed at [facility];[address] | | LAB | | | | [address];[place] | | | | | | [address] | | | | + + + + + + | % | 2Comment: Testing | % | EXTERNAL | | | Metamyelocy | performed at [facility];[address] | | LAB | | | petros | [address];[place] | | | | | | [address] | | | | + + + + + + | % | 1Comment: Testing | % | EXTERNAL | | | Myelocytes | performed at [facility];888 | | LAB | | | | [address];[place] | | | | | | [address] | | | | + + + + + + | Lymphocytes | 14Comment: Testing | % | EXTERNAL | | | Manual | performed at [facility];888 | | LAB | | | | [address];[place] | | | | | | [address] | | | | + + + + + + | Monocytes | 6Comment: Testing | % | EXTERNAL | | | Manual | performed at [facility];[address] | | LAB | | | | [address];[place] | | | | | | [address] | | | | + + + + + + | Eosinophils | 1Comment: Testing | % | EXTERNAL | | | Manual | performed at [facility];888 | | LAB | | | | [address];[place] | | | | | | [address] | | | | + + + + + + | Absolute | 21.3 (H)Comment: Testing | 1.9 - 7.4 K/uL | EXTERNAL | | | Neutrophils | performed at [facility];888 | | LAB | | | | [address];[place] | | | | | | [address] | | | | + + + + + + | Bands | 2.2 (H)Comment: Testing | 0 - 0.2 K/uL | EXTERNAL | | | Manual | performed at [facility];888 | | LAB | | | | [address];[place] | | | | | | [address] | | | | + + + + + + | Absolute | 0.6 (H)Comment: Testing | K/uL | EXTERNAL | | | Metamyelocy | performed at [facility];888 | | LAB | | | petros | [address];[place] | | | | | | [address] | | | | + + + + + + | Absolute | 0.3 (H)Comment: Testing | K/uL | EXTERNAL | | | Myelocytes | performed at [facility];[address] | | LAB | | | | [address];[place] | | | | | | [address] | | | | + + + + + + | Absolute | 4.3 (H)Comment: Testing | 1.0 - 3.9 K/uL | EXTERNAL | | | Lymphocytes | performed at [facility];[address] | | LAB | | | | [address];[place] | | | | | | [address] | | | | + + + + + + | Absolute | 1.8 (H)Comment: Testing | 0 - 0.8 K/uL | EXTERNAL | | | Monocytes | performed at [facility];[address] | | LAB | | | | [address];[place] | | | | | | [address] | | | | + + + + + + | Absolute | 0.3Comment: Testing | 0 - 0.5 K/uL | EXTERNAL | | | Eosinophils | performed at [facility];[address] | | LAB | | | | [address];[place] | | | | | | [address] | | | | + + + + + + | Platelet | ADEQUATEComment: Testing | | EXTERNAL | | | Estimate | performed at [facility];[address] | | LAB | | | | [facility] | | | | | | [address] | | | | + + + + + + | RBC | 1+Comment: GIANT | | EXTERNAL | | | Morphology | PLATELETS1+POLYTesting | | LAB | | | | performed at [facility];[address] | | | | | | [facility] | | | | | | [address] | | | | | |Testing performed at [facility];[address] [facility];[place] [address] | | | | | | | [...] EXTERNAL | | | | performed at [facility];[address] | | LAB | | | | [address];[place], [place] | | | | | | [address] | | | | + + + [...] EXTERNAL | | | | performed at [facility];888 | | LAB | | | | [address];[place] | | | | | | [address] | | | | + + + [...] EXTERNAL | | | | performed at [facility];888 | mmol/L | LAB | | | | [address];[place] | | | | | | [address] | | | | + + + + + + | K | 4.0Comment: Testing | 3.5 - 4.9 | EXTERNAL | | | | performed at [facility];888 | mmol/L | LAB | | | | [address];[place] | | | | | | [address] | | | | + + + + + + | Cl | 112 (H)Comment: Testing | 99 - 109 mmol/L | EXTERNAL | | | | performed at [facility];[address] | | LAB | | | | [address];[place] | | | | | | [address] | | | | + + + + + + | CO2 | 30Comment: Testing | 23 - 32 mmol/L | EXTERNAL | | | | performed at [facility];[address] | | LAB | | | | [address];[place] | | | | | | [address] | | | | + + + + + + | Anion Gap | 12Comment: Testing | 5 - 20 mmol/L | EXTERNAL | | | | performed at [facility];[address] | | LAB | | | | [address];[place] | | | | | | [address] | | | | + + + + + + | Glucose, | 67Comment: Testing | 65 - 99 mg/dL | EXTERNAL | | | Fasting | performed at [facility];[address] | | LAB | | | | [address];[place] | | | | | | [address] | | | | + + + + + + | BUN | 37 (H)Comment: Testing | 8 - 25 mg/dL | EXTERNAL | | | | performed at [facility];[address] | | LAB | | | | [address];[place] | | | | | | [address] | | | | + + + + + + | Creatinine | 1.34 (H)Comment: Testing | 0.50 - 1.00 | EXTERNAL | | | | performed at [facility];888 | mg/dL | LAB | | | | [address];[place] | | | | | | [address] | | | | + + + + + + | BUN/Creatin | 28Comment: Testing | | EXTERNAL | | | ine Ratio | performed at [facility];[address] | | LAB | | | | [address];[place] | | | | | | [address] | | | | + + + + + + | Calcium | 7.9 (L)Comment: Testing | 8.5 - 10.2 | EXTERNAL | | | | performed at [facility];888 | mg/dL | LAB | | | | [address];[place] | | | | | | [address] | | | | + + + [...] | | | | | | at [facility];[address];[place] [address] | | | | + + + [...] | | | Fingerstick | performed at [facility] | | LAB | | | | [address];[place], [place] | | | | | | [address] | | | | + + + [...] | | | Fingerstick | performed at [facility];[address] | | LAB | | | | [address];[place], [place] | | | | | | [address] | | | | + + + [...] | | | Fingerstick | performed at [facility];8 | | LAB | | | | [address];[place], [place] | | | | | | [address] | | | | + + + [...] ON | | | | | | [id number] performed | | | | | | at [facility];[address] [place] [address] | | | | | | Blvd;[place] [address] | | | | + + + + + + | Non- | 2.91 (L)Comment: Testing | 3.70 - 5.10 | EXTERNAL | | | Red Blood | performed at [facility];888 | M/uL | LAB | | | Cells | [address];[place] | | | | | Counted | [address] | | | | + + + + + + | Hemoglobin | 8.4 (L)Comment: Testing | 11.3 - 15.5 | EXTERNAL | | | | performed at [facility];888 | g/dL | LAB | | | | [address];[place] | | | | | | [address] | | | | + + + + + + | Hematocrit, | 24.8 (L)Comment: Testing | 34.0 - 46.0 % | EXTERNAL | | | POC | performed at [facility];888 | | LAB | | | | [address];[place] | | | | | | [address] | | | | + + + + + + | MCV | 85.1Comment: Testing | 80.0 - 100.0 fl | EXTERNAL | | | | performed at [facility];888 | | LAB | | | | [address];[place] | | | | | | [address] | | | | + + + + + + | MCH | 28.9Comment: Testing | 27.0 - 34.0 pg | EXTERNAL | | | | performed at [facility];888 | | LAB | | | | [address];[place] | | | | | | [address] | | | | + + + + + + | MCHC | 34.0Comment: Testing | 32.0 - 35.5 | EXTERNAL | | | | performed at [facility];888 | g/dL | LAB | | | | [address];[place] | | | | | | [address] | | | | + + + + + + | RDW-CV | 42.9Comment: Testing | 37 - 53 fl | EXTERNAL | | | | performed at [facility];[address] | | LAB | | | | [address];[place] | | | | | | [address] | | | | + + + + + + | Platelet | 228Comment: Testing | 150 - 400 K/uL | EXTERNAL | | | Count | performed at [facility];888 | | LAB | | | Plasma | [address];[place] | | | | | | [address] | | | | + + + + + + | MPV | 7.2Comment: Testing | fl | EXTERNAL | | | | performed at [facility];888 | | LAB | | | | [address];[place] | | | | | | [address] | | | | + + + + + + | Differentia | MANUALComment: Testing | | EXTERNAL | | | l Type | performed at [facility];888 | | LAB | | | | [address];[place] | | | | | | [address] | | | | + + + + + + | Segmented | 69Comment: Testing | % | EXTERNAL | | | Neutrophils | performed at [facility];888 | | LAB | | | Manual | [address];[place] | | | | | | [address] | | | | + + + + + + | % Bands | 14Comment: Testing | % | EXTERNAL | | | | performed at [facility];[address] | | LAB | | | | [address];[place] | | | | | | [address] | | | | + + + + + + | % | 3Comment: Testing | % | EXTERNAL | | | Metamyelocy | performed at [facility];888 | | LAB | | | petros | [address];[place] | | | | | | [address] | | | | + + + + + + | % | 1Comment: Testing | % | EXTERNAL | | | Myelocytes | performed at [facility];[address] | | LAB | | | | [address];[place] | | | | | | [address] | | | | + + + + + + | Lymphocytes | 9Comment: Testing | % | EXTERNAL | | | Manual | performed at [facility];888 | | LAB | | | | [address];[place] | | | | | | [address] | | | | + + + + + + | Monocytes | 4Comment: Testing | % | EXTERNAL | | | Manual | performed at [facility];888 | | LAB | | | | [address];[place] | | | | | | [address] | | | | + + + + + + | Absolute | 23.2 (H)Comment: Testing | 1.9 - 7.4 K/uL | EXTERNAL | | | Neutrophils | performed at [facility];888 | | LAB | | | | [address];[place] | | | | | | [address] | | | | + + + + + + | Bands | 4.7 (H)Comment: Testing | 0 - 0.2 K/uL | EXTERNAL | | | Manual | performed at [facility];888 | | LAB | | | | [address];[place] | | | | | | [address] | | | | + + + + + + | Absolute | 1.0 (H)Comment: Testing | K/uL | EXTERNAL | | | Metamyelocy | performed at [facility];888 | | LAB | | | petros | [address];[place] | | | | | | [address] | | | | + + + + + + | Absolute | 0.3 (H)Comment: Testing | K/uL | EXTERNAL | | | Myelocytes | performed at [facility];888 | | LAB | | | | [address];[place] | | | | | | [address] | | | | + + + + + + | Absolute | 3.0Comment: Testing | 1.0 - 3.9 K/uL | EXTERNAL | | | Lymphocytes | performed at [facility];888 | | LAB | | | | [address];[place] | | | | | | [address] | | | | + + + + + + | Absolute | 1.3 (H)Comment: Testing | 0 - 0.8 K/uL | EXTERNAL | | | Monocytes | performed at [facility];888 | | LAB | | | | [address];[place] | | | | | | [address] | | | | + + + + + + | Platelet | ADEQUATEComment: Testing | | EXTERNAL | | | Estimate | performed at [facility];888 | | LAB | | | | [address];[place] | | | | | | [address] | | | | + + + + + + | RBC | 1+Comment: TOXIC | | EXTERNAL | | | Morphology | GRANULATION1+POLYTesting | | LAB | | | | performed at [facility];888 | | | | | | [address];[place] | | | | | | [address] | | | | | |Testing performed at [facility];[address];[place] [address] | | | | | | | | | | + + + + + + | Nucleated | 4 (H)Comment: Testing | /100WBC | EXTERNAL | | | Red Blood | performed at [facility];888 | | LAB | | | Cells | [address];[place] | | | | | | [address] | | | | + + + [...] EXTERNAL | | | | performed at [facility];888 | mmol/L | LAB | | | | [address];[place], [place] | | | | | | [address] | | | | + + + [...] | | | | | performed at [facility] | | | | | | [address] [facility];[place], [place] | | | | | | [address] | | | | + + + [...] EXTERNAL | | | | performed at [facility];[address] | | LAB | | | | [address];[place] | | | | | | [address] | | | | + + + + + + | PH ART | 7.358Comment: Testing | 7.350 - 7.450 | EXTERNAL | | | | performed at [facility];[address] | | LAB | | | | [address];[place] | | | | | | [address] | | | | + + + + + + | PCO2 ART | 37Comment: Testing | 35 - 45 mmHg | EXTERNAL | | | | performed at [facility];[address] | | LAB | | | | [address];[place] | | | | | | [address] | | | | + + + + + + | PO2 ART | 84Comment: Testing | 80 - 105 mmHg | EXTERNAL | | | | performed at [facility];[address] | | LAB | | | | [address];[place] | | | | | | [address] | | | | + + + + + + | HCO3 ART | 21 (L)Comment: Testing | 22 - 26 mmol/L | EXTERNAL | | | | performed at [facility];[address] | | LAB | | | | [address];[place] | | | | | | [address] | | | | + + + + + + | POC | 22 (L)Comment: Testing | 23 - 27 mEq/L | EXTERNAL | | | APPEARANCE | performed at [facility];888 | | LAB | | | UA | [address];[place] | | | | | | [address] | | | | + + + + + + | Base | 5 (H)Comment: Testing | 0.0 - 2.0 | EXTERNAL | | | deficit | performed at [facility] | mmol/L | LAB | | | | [address];[place] | | | | | | [address] | | | | + + + + + + | O2 SAT ART | 96Comment: Testing | 95 - 98 % | EXTERNAL | | | | performed at [facility] | | LAB | | | | [address];[place] | | | | | | [address] | | | | + + + + + + | Sodium, POC | 150 (H)Comment: Testing | 135 - 145 mEq/L | EXTERNAL | | | | performed at [facility] | | LAB | | | | [address];[place] | | | | | | [address] | | | | + + + + + + | Potassium, | 3.7Comment: Testing | 3.5 - 5.0 mEq/L | EXTERNAL | | | POC | performed at [facility] | | LAB | | | | [address];[place] | | | | | | [address] | | | | + + + + + + | Ionized | 1.01 (L)Comment: Testing | 1.12 - 1.32 | EXTERNAL | | | Calcium, | performed at [facility] | mmol/L | LAB | | | POC | [address];[place] | | | | | | [address] | | | | + + + + + + | Glucose, | 195 (H)Comment: Testing | 65 - 99 mg/dL | EXTERNAL | | | POC | performed at [facility] | | LAB | | | | [address];[place] | | | | | | [address] | | | | + + + + + + | Hematocrit, | 23 (LL)Comment: Testing | 35.0 - 46.0 % | EXTERNAL | | | POC | performed at [facility] | | LAB | | | | [address];[place] | | | | | | [address] | | | | + + + + + + | Hemoglobin, | 7.8 (LL)Comment: Testing | 11.6 - 15.5 | EXTERNAL | | | POC | performed at [facility] | g/dL | LAB | | | | [address];[place] | | | | | | [address] | | | | + + + + + + | Comment, | Tidal Volume = | | EXTERNAL | | | POC | 16Comment: Peep = 8Resp | | LAB | | | | Rate = 46Testing | | | | | | performed at [facility] | | | | | | [address];[place] | | | | | | [address] | | | | + + + [...] | | | Patient | performed at [facility] | | LAB | | | | [address];[place], [place] | | | | | | [address] | | | | + + + [...] | | | | | performed at [facility] | | | | | | [address];[place], [place] | | | | | | [address] | | | | + + + [...] EXTERNAL | | | | performed at [facility] | | LAB | | | | [address];[place] | | | | | | [address] | | | | + + + [...] ON | | | | | | [id number] performed | | | | | | at [facility] | | | | | | [address];[place] [address] | | | | + + + + + + | Non- | 2.99 (L)Comment: Testing | 3.70 - 5.10 | EXTERNAL | | | Red Blood | performed at [facility] | M/uL | LAB | | | Cells | [address];[place] | | | | | Counted | [id number] | | | | + + + + + + | Hemoglobin | 8.3 (L)Comment: Testing | 11.3 - 15.5 | EXTERNAL | | | | performed at [facility] | g/dL | LAB | | | | [address];[place] | | | | | | [address] | | | | + + + + + + | Hematocrit, | 26.5 (L)Comment: Testing | 34.0 - 46.0 % | EXTERNAL | | | POC | performed at [facility] | | LAB | | | | [address];[place] | | | | | | [address] | | | | + + + + + + | MCV | 88.6Comment: Testing | 80.0 - 100.0 fl | EXTERNAL | | | | performed at [facility] | | LAB | | | | [address];[place] | | | | | | [address] | | | | + + + + + + | MCH | 27.8Comment: Testing | 27.0 - 34.0 pg | EXTERNAL | | | | performed at [facility]888 | | LAB | | | | [address];[place] | | | | | | [address] | | | | + + + + + + | MCHC | 31.4 (L)Comment: Testing | 32.0 - 35.5 | EXTERNAL | | | | performed at [facility]888 | g/dL | LAB | | | | [address];[place] | | | | | | [address] | | | | + + + + + + | RDW-CV | 47.3Comment: Testing | 37 - 53 fl | EXTERNAL | | | | performed at [facility];888 | | LAB | | | | [address];[place] | | | | | | [address] | | | | + + + + + + | Platelet | 78 (L)Comment: Testing | 150 - 400 K/uL | EXTERNAL | | | Count | performed at [facility];888 | | LAB | | | Plasma | [address];[place] | | | | | | [address] | | | | + + + + + + | MPV | 8.7Comment: Testing | fl | EXTERNAL | | | | performed at [facility];[address] | | LAB | | | | [address];[place] | | | | | | [address] | | | | + + + + + + | Differentia | MANUALComment: Testing | | EXTERNAL | | | l Type | performed at [facility];888 | | LAB | | | | [address];[place] | | | | | | [address] | | | | + + + + + + | Nucleated | 2 (H)Comment: Testing | /100WBC | EXTERNAL | | | Red Blood | performed at [facility];888 | | LAB | | | Cells | [address];[place] | | | | | | [address] | | | | + + + + + + | Segmented | 76Comment: Testing | % | EXTERNAL | | | Neutrophils | performed at [facility];888 | | LAB | | | Manual | [address];[place] | | | | | | [address] | | | | + + + + + + | % Bands | 9Comment: Testing | % | EXTERNAL | | | | performed at [facility];888 | | LAB | | | | [address];[place] | | | | | | [address] | | | | + + + + + + | % | 3Comment: Testing | % | EXTERNAL | | | Metamyelocy | performed at [facility];888 | | LAB | | | petros | [address];[place] | | | | | | [address] | | | | + + + + + + | % | 1Comment: Testing | % | EXTERNAL | | | Myelocytes | performed at [facility];888 | | LAB | | | | [address];[place] | | | | | | [address] | | | | + + + + + + | Lymphocytes | 2Comment: Testing | % | EXTERNAL | | | Manual | performed at [facility];[address] | | LAB | | | | [address];[place] | | | | | | [address] | | | | + + + + + + | Monocytes | 9Comment: Testing | % | EXTERNAL | | | Manual | performed at [facility];[address] | | LAB | | | | [address];[place] | | | | | | [address] | | | | + + + + + + | Absolute | 26.7 (H)Comment: Testing | 1.9 - 7.4 K/uL | EXTERNAL | | | Neutrophils | performed at [facility];888 | | LAB | | | | [address];[place] | | | | | | [address] | | | | + + + + + + | Bands | 3.2 (H)Comment: Testing | 0 - 0.2 K/uL | EXTERNAL | | | Manual | performed at [facility];888 | | LAB | | | | [address];[place] | | | | | | [address] | | | | + + + + + + | Absolute | 1.1 (H)Comment: Testing | K/uL | EXTERNAL | | | Metamyelocy | performed at [facility];888 | | LAB | | | petros | [address];[place] | | | | | | [address] | | | | + + + + + + | Absolute | 0.4 (H)Comment: Testing | K/uL | EXTERNAL | | | Myelocytes | performed at [facility];888 | | LAB | | | | [address];[place] | | | | | | [address] | | | | + + + + + + | Absolute | 0.7 (L)Comment: Testing | 1.0 - 3.9 K/uL | EXTERNAL | | | Lymphocytes | performed at [facility];888 | | LAB | | | | [address];[place] | | | | | | [address] | | | | + + + + + + | Absolute | 3.2 (H)Comment: Testing | 0 - 0.8 K/uL | EXTERNAL | | | Monocytes | performed at [facility];888 | | LAB | | | | [address];[place] | | | | | | [address] | | | | + + + + + + | Platelet | DECREASEDComment: | | EXTERNAL | | | Estimate | Testing performed at | | LAB | | | | [facility];[address];[place] [address] | | | | + + + + + + | RBC | 1+Comment: GIANT | | EXTERNAL | | | Morphology | PLATELETS1+POLY1+HYPO1+A | | LAB | | | | NISOTesting performed at | | | | | | [facility];[address] | | | | | [address];[place] [address] | | | | | |1+ | | | | | |HYPO | | | | | |1+ | | | | | |ANISO | | | | | |Testing performed at [facility];[address];[place] [address] | | | | | | | | | | + + + + + + | Differentia | SLIDE REFERRED TO | | EXTERNAL | | | l Comments | PATHOLOGIST FOR REVIEW | | LAB | | | | AND COMMENTComment: | | | | | | Testing performed at | | | | | | [facility];[address] [place] [address] | | | | | | [facility];[place] [address] | | | | + + + [...] EXTERNAL | | | | performed at [facility];888 | mmol/L | LAB | | | | [address];[place] | | | | | | [address] | | | | + + + + + + | K | 3.9Comment: Testing | 3.5 - 4.9 | EXTERNAL | | | | performed at [facility];888 | mmol/L | LAB | | | | [address];[place] | | | | | | [address] | | | | + + + + + + | Cl | 114 (H)Comment: Testing | 99 - 109 mmol/L | EXTERNAL | | | | performed at [facility];[address] | | LAB | | | | [address];[place] | | | | | | [address] | | | | + + + + + + | CO2 | 21 (L)Comment: Testing | 23 - 32 mmol/L | EXTERNAL | | | | performed at [facility];[address] | | LAB | | | | [address];[place] | | | | | | [address] | | | | + + + + + + | Anion Gap | 23 (H)Comment: Testing | 5 - 20 mmol/L | EXTERNAL | | | | performed at [facility];[address] | | LAB | | | | [address];[place] | | | | | | [address] | | | | + + + + + + | Glucose, | 192 (H)Comment: Testing | 65 - 99 mg/dL | EXTERNAL | | | Fasting | performed at [facility];[address] | | LAB | | | | [address];[place] | | | | | | [address] | | | | + + + + + + | BUN | 34 (H)Comment: Testing | 8 - 25 mg/dL | EXTERNAL | | | | performed at [facility];[address] | | LAB | | | | [address];[place] | | | | | | [address] | | | | + + + + + + | Creatinine | 1.47 (H)Comment: Testing | 0.50 - 1.00 | EXTERNAL | | | | performed at [facility];888 | mg/dL | LAB | | | | [address];[place] | | | | | | [address] | | | | + + + + + + | BUN/Creatin | 23Comment: Testing | | EXTERNAL | | | ine Ratio | performed at [facility];888 | | LAB | | | | [address];[place] | | | | | | [address] | | | | + + + + + + | Calcium | 6.7 (L)Comment: Testing | 8.5 - 10.2 | EXTERNAL | | | | performed at [facility];888 | mg/dL | LAB | | | | [address];[place] | | | | | | [address] | | | | + + + [...] | | | | | | at [facility];[address] | | | | | | [address];[place] [address] | | | | + + + [...] EXTERNAL | | | | performed at [facility];888 | mmol/L | LAB | | | | [address];[place], [place] | | | | | | [address] | | | | + + + [...] | | | Fingerstick | performed at [facility];888 | | LAB | | | | [address];[place], [place] | | | | | | [address] | | | | + + + [...] EXTERNAL | | | | performed at [facility];888 | | LAB | | | | [address];[place] | | | | | | [address] | | | | + + + + + + | PH ART | 7.140 ()Comment: | 7.350 - 7.450 | EXTERNAL | | | | Testing performed at | | LAB | | | | [facility];[address];[place] [address] | | | | + + + + + + | PCO2 ART | 38Comment: Testing | 35 - 45 mmHg | EXTERNAL | | | | performed at [facility];[address] | | LAB | | | | [address];[place] | | | | | | [address] | | | | + + + + + + | PO2 ART | 104Comment: Testing | 80 - 105 mmHg | EXTERNAL | | | | performed at [facility];[address] | | LAB | | | | [address];[place] | | | | | | [address] | | | | + + + + + + | HCO3 ART | 13 (L)Comment: Testing | 22 - 26 mmol/L | EXTERNAL | | | | performed at [facility];[address] | | LAB | | | | [address];[place] | | | | | | [address] | | | | + + + + + + | POC | 14 (L)Comment: Testing | 23 - 27 mEq/L | EXTERNAL | | | APPEARANCE | performed at [facility];888 | | LAB | | | UA | [address];[place] | | | | | | [address] | | | | + + + + + + | Base | 16 (H)Comment: Testing | 0.0 - 2.0 | EXTERNAL | | | deficit | performed at [facility];888 | mmol/L | LAB | | | | [address];[place] | | | | | | [address] | | | | + + + + + + | O2 SAT ART | 96Comment: Testing | 95 - 98 % | EXTERNAL | | | | performed at [facility];[address] | | LAB | | | | [address];[place] | | | | | | [address] | | | | + + + + + + | Sodium, POC | 146 (H)Comment: Testing | 135 - 145 mEq/L | EXTERNAL | | | | performed at [facility];[address] | | LAB | | | | [address];[place] | | | | | | [address] | | | | + + + + + + | Potassium, | 5.0Comment: Testing | 3.5 - 5.0 mEq/L | EXTERNAL | | | POC | performed at [facility];[address] | | LAB | | | | [address];[place] | | | | | | [address] | | | | + + + + + + | Ionized | 1.15Comment: Testing | 1.12 - 1.32 | EXTERNAL | | | Calcium, | performed at [facility];888 | mmol/L | LAB | | | POC | [address];[place] | | | | | | [address] | | | | + + + + + + | Glucose, | 265 (H)Comment: Testing | 65 - 99 mg/dL | EXTERNAL | | | POC | performed at [facility];[address] | | LAB | | | | [address];[place] | | | | | | [address] | | | | + + + + + + | Hematocrit, | <10 (LL)Comment: Testing | 35.0 - 46.0 % | EXTERNAL | | | POC | performed at [facility];[address] | | LAB | | | | [address];[place] | | | | | | [address] | | | | + + + + + + | Comment, | Tidal Volume = | | EXTERNAL | | | POC | 16Comment: Peep = 8Resp | | LAB | | | | Rate = 46Testing | | | | | | performed at [facility];[address] | | | | | | [address];[place] | | | | | | [address] | | | | + + + [...] | | | Fingerstick | performed at [facility];888 | | LAB | | | | [address];[place] | | | | | | [address] | | | | + + + [...] + + | Historically converted procedure from [facility] environment | EXTERNAL LAB | + + [...] | | | Fingerstick | performed at [facility];[address] | | LAB | | | | [address];[place], [place] | | | | | | [address] | | | | + + + [...] EXTERNAL | | | | performed at [facility];888 | | LAB | | | | [address];[place] | | | | | | [address] | | | | + + + [...] EXTERNAL | | | | performed at [facility] | | LAB | | | | [address];[place], [place] | | | | | | [address] | | | | + + + [...] | | | | | | at [facility];[address] [facility] | | | | | | [facility];[place] [address] | | | | + + + [...] | | | Patient | performed at [facility];888 | | LAB | | | | [address];[place], [place] | | | | | | [address] | | | | + + + [...] | | | | | performed at [facility];888 | | | | | | [address];[place] | | | | | | [address] | | | | + + + [...] EXTERNAL | | | | performed at [facility];[address] | | LAB | | | | [address];[place] | | | | | | [address] | | | | + + + + + + | Non- | 3.56 (L)Comment: Testing | 3.70 - 5.10 | EXTERNAL | | | Red Blood | performed at [facility];888 | M/uL | LAB | | | Cells | [address];[place] | | | | | Counted | [address] | | | | + + + + + + | Hemoglobin | 8.7 (L)Comment: Testing | 11.3 - 15.5 | EXTERNAL | | | | performed at [facility];888 | g/dL | LAB | | | | [address];[place] | | | | | | [address] | | | | + + + + + + | Hematocrit, | 29.0 (L)Comment: Testing | 34.0 - 46.0 % | EXTERNAL | | | POC | performed at [facility];888 | | LAB | | | | [address];[place] | | | | | | [address] | | | | + + + + + + | MCV | 81.3Comment: Testing | 80.0 - 100.0 fl | EXTERNAL | | | | performed at [facility];888 | | LAB | | | | [address];[place] | | | | | | [address] | | | | + + + + + + | MCH | 24.4 (L)Comment: Testing | 27.0 - 34.0 pg | EXTERNAL | | | | performed at [facility];888 | | LAB | | | | [address];[place] | | | | | | [address] | | | | + + + + + + | MCHC | 30.0 (L)Comment: Testing | 32.0 - 35.5 | EXTERNAL | | | | performed at [facility];888 | g/dL | LAB | | | | [address];[place] | | | | | | [address] | | | | + + + + + + | RDW-CV | 63.9 (H)Comment: Testing | 37 - 53 fl | EXTERNAL | | | | performed at [facility];888 | | LAB | | | | [address];[place] | | | | | | [address] | | | | + + + + + + | Platelet | 330Comment: Testing | 150 - 400 K/uL | EXTERNAL | | | Count | performed at [facility];888 | | LAB | | | Plasma | [address];[place] | | | | | | [address] | | | | + + + + + + | MPV | 8.6Comment: Testing | fl | EXTERNAL | | | | performed at [facility];[address] | | LAB | | | | [address];[place] | | | | | | [address] | | | | + + + + + + | Differentia | MANUALComment: Testing | | EXTERNAL | | | l Type | performed at [facility];[address] | | LAB | | | | [address];[place] | | | | | | [address] | | | | + + + + + + | Segmented | 77Comment: Testing | % | EXTERNAL | | | Neutrophils | performed at [facility];888 | | LAB | | | Manual | [address];[place] | | | | | | [address] | | | | + + + + + + | % Bands | 4Comment: Testing | % | EXTERNAL | | | | performed at [facility];888 | | LAB | | | | [address];[place] | | | | | | [address] | | | | + + + + + + | % | 3Comment: Testing | % | EXTERNAL | | | Metamyelocy | performed at [facility];888 | | LAB | | | petros | [address];[place] | | | | | | [address] | | | | + + + + + + | % | 1Comment: Testing | % | EXTERNAL | | | Myelocytes | performed at [facility];888 | | LAB | | | | [address];[place] | | | | | | [address] | | | | + + + + + + | Lymphocytes | 10Comment: Testing | % | EXTERNAL | | | Manual | performed at [facility];888 | | LAB | | | | [address];[place] | | | | | | [address] | | | | + + + + + + | Monocytes | 5Comment: Testing | % | EXTERNAL | | | Manual | performed at [facility];[address] | | LAB | | | | [address];[place] | | | | | | [address] | | | | + + + + + + | Absolute | 17.8 (H)Comment: Testing | 1.9 - 7.4 K/uL | EXTERNAL | | | Neutrophils | performed at [facility];888 | | LAB | | | | [address];[place] | | | | | | [address] | | | | + + + + + + | Bands | 0.9 (H)Comment: Testing | 0 - 0.2 K/uL | EXTERNAL | | | Manual | performed at [facility];888 | | LAB | | | | [address];[place] | | | | | | [address] | | | | + + + + + + | Absolute | 0.7 (H)Comment: Testing | K/uL | EXTERNAL | | | Metamyelocy | performed at [facility];888 | | LAB | | | petros | [address];[place] | | | | | | [address] | | | | + + + + + + | Absolute | 0.2 (H)Comment: Testing | K/uL | EXTERNAL | | | Myelocytes | performed at [facility];888 | | LAB | | | | [address];[place] | | | | | | [address] | | | | + + + + + + | Absolute | 2.3Comment: Testing | 1.0 - 3.9 K/uL | EXTERNAL | | | Lymphocytes | performed at [facility];888 | | LAB | | | | [address];[place] | | | | | | [address] | | | | + + + + + + | Absolute | 1.2 (H)Comment: Testing | 0 - 0.8 K/uL | EXTERNAL | | | Monocytes | performed at [facility];888 | | LAB | | | | [address];[place] | | | | | | [address] | | | | + + + + + + | RBC | 2+Comment: | | EXTERNAL | | | Morphology | HYPO3+ANISO1+POIK1+TARGE | | LAB | | | | TNORMAL PLT MORPHTesting | | | | | | performed at [facility];888 | | | | | | [address];[place] | | | | | | [address] | | | | | |POIK | | | | | |1+ | | | | | |TARGET | | | | | |NORMAL PLT MORPH | | | | | |Testing performed at [facility];[address] [facility];[place] [address] | | | | | | | [...] EXTERNAL | | | | performed at [facility], [address] | mg/dL | LAB | | | | [address], | | | | | | [place] [address] | | | | + + + [...] EXTERNAL | | | | performed at [facility], [address] | | LAB | | | | [address], | | | | | | [place] [address] | | | | + + + [...] EXTERNAL | | | | performed at [facility];[address] | | LAB | | | | [facility], [place] | | | | | | [...] | | | | | [place] [address] | | | | + + + [...] | | | | | [place] [address] | | | | + + + + + + | Albumin | 2.4 (L)Comment: Testing | 3.6 - 5.0 g/dL | EXTERNAL | | | | performed at [facility], [address] | | LAB | | | | [address], | | | | | | [place] [address] | | | | + + + + + + | Bilirubin | 0.5Comment: Testing | 0.1 - 1.5 mg/dL | EXTERNAL | | | Total | performed at [facility], [address] | | LAB | | | | [address], | | | | | | [place] [address] | | | | + + + + + + | Bilirubin | 0.1Comment: Testing | 0.0 - 0.3 mg/dL | EXTERNAL | | | Direct | performed at [facility], [address] | | LAB | | | | [address], | | | | | | [place] [address] | | | | + + + + + + | ALP, | 131 (H)Comment: Testing | 35 - 115 U/L | EXTERNAL | | | External | performed at [facility], [address] | | LAB | | | | [address], | | | | | | [place] [address] | | | | + + + + + + | AST | 20Comment: Testing | 10 - 45 U/L | EXTERNAL | | | | performed at [facility], [address] | | LAB | | | | [address], | | | | | | [place] [address] | | | | + + + + + + | ALT | 11Comment: Testing | 10 - 65 U/L | EXTERNAL | | | | performed at [facility], [address] | | LAB | | | | [address], | | | | | | [place], [place] [address] | | | | + + + [...] | | | | | [place] [address] | | | | + + + + + + | Triglycerid | 151 (H)Comment: Testing | mg/dL | EXTERNAL | | | es | performed at [facility], [address] | | LAB | | | | [address], | | | | | | [place] [address] | | | | + + + + + + | HDL | 58Comment: Testing | mg/dL | EXTERNAL | | | | performed at [facility], [address] | | LAB | | | | [address], | | | | | | [place] [address] | | | | + + + + + + | LDL, | 125 (H)Comment: Testing | mg/dL | EXTERNAL | | | Calculated | performed at [facility], [address] | | LAB | | | | [address], | | | | | | [place] [address] | | | | + + + [...] | | | | | [place] [address] | | | | + + + + + + | K | 4.0Comment: Testing | 3.5 - 4.9 | EXTERNAL | | | | performed at [facility], [address] | mmol/L | LAB | | | | [address], | | | | | | [place] [address] | | | | + + + + + + | Cl | 107Comment: Testing | 99 - 109 mmol/L | EXTERNAL | | | | performed at [facility], [address] | | LAB | | | | [address], | | | | | | [place] [address] | | | | + + + + + + | CO2 | 29Comment: Testing | 23 - 32 mmol/L | EXTERNAL | | | | performed at [facility], [address] | | LAB | | | | [address], | | | | | | [place] [address] | | | | + + + + + + | Anion Gap | 13Comment: Testing | 5 - 20 mmol/L | EXTERNAL | | | | performed at [facility], [address] | | LAB | | | | [address], | | | | | | [place] [address] | | | | + + + + + + | Glucose, | 123 (H)Comment: Testing | 65 - 99 mg/dL | EXTERNAL | | | Fasting | performed at [facility], [address] | | LAB | | | | [address], | | | | | | [place] [address] | | | | + + + + + + | BUN | 30 (H)Comment: Testing | 8 - 25 mg/dL | EXTERNAL | | | | performed at [facility], [address] | | LAB | | | | [address], | | | | | | [place] [address] | | | | + + + + + + | Creatinine | 0.64Comment: Testing | 0.50 - 1.00 | EXTERNAL | | | | performed at [facility], [address] | mg/dL | LAB | | | | [address], | | | | | | [place] [address] | | | | + + + + + + | BUN/Creatin | 47Comment: Testing | | EXTERNAL | | | ine Ratio | performed at [facility], [address] | | LAB | | | | [address], | | | | | | [place] [address] | | | | + + + + + + | Calcium | 8.8Comment: Testing | 8.5 - 10.2 | EXTERNAL | | | | performed at [facility], [address] | mg/dL | LAB | | | | [facility], | | | | | | [place] [address] | | | | + + + [...] W | | | | | | [facility], | | | | | | [place] [address] | | | | + + + [...] AC | | | Testing performed at [facility] | [address];[place] [address] CULTURE | | | NO GROWTH | | | Testing performed at [facility], [address] [facility], [place], [place] | | | [address] | | + + + + +---------+ [...] AC | | | Testing performed at [facility];[address] | | | [facility];[place] [address] CULTURE | | | NO GROWTH | | | Testing performed at [facility], [address] [facility], [place], [place] | | | [address] | | + + + + +---------+ [...] EXTERNAL | | | | performed at [facility];[address] | mmol/L | LAB | | | | [address];[place], [place] | | | | | | [address] | | | | + + + [...] | | | Fingerstick | performed at [facility];[address] | | LAB | | | | [address];[place] | | | | | | [address] | | | | + + + [...] EXTERNAL | | | | performed at [facility];[address] | | LAB | | | | [address];[place] | | | | | | [address] | | | | + + + + + + | Non- | 3.11 (L)Comment: Testing | 3.70 - 5.10 | EXTERNAL | | | Red Blood | performed at [facility];[address] | M/uL | LAB | | | Cells | [address];[place] | | | | | Counted | [id number] | | | | + + + + + + | Hemoglobin | 7.6 (L)Comment: Testing | 11.3 - 15.5 | EXTERNAL | | | | performed at [facility];[address] | g/dL | LAB | | | | [address];[place] | | | | | | [address] | | | | + + + + + + | Hematocrit, | 25.7 (L)Comment: Testing | 34.0 - 46.0 % | EXTERNAL | | | POC | performed at [facility];[address] | | LAB | | | | [address];[place] | | | | | | [address] | | | | + + + + + + | MCV | 82.8Comment: Testing | 80.0 - 100.0 fl | EXTERNAL | | | | performed at [facility];[address] | | LAB | | | | [address];[place] | | | | | | [address] | | | | + + + + + + | MCH | 24.6 (L)Comment: Testing | 27.0 - 34.0 pg | EXTERNAL | | | | performed at [facility];[address] | | LAB | | | | [address];[place] | | | | | | [address] | | | | + + + + + + | MCHC | 29.7 (L)Comment: Testing | 32.0 - 35.5 | EXTERNAL | | | | performed at [facility];[address] | g/dL | LAB | | | | [address];[place] | | | | | | [address] | | | | + + + + + + | RDW-CV | 66.5 (H)Comment: Testing | 37 - 53 fl | EXTERNAL | | | | performed at [facility] | | LAB | | | | [address];[place] | | | | | | [address] | | | | + + + + + + | Platelet | 318Comment: Testing | 150 - 400 K/uL | EXTERNAL | | | Count | performed at [facility];[address] | | LAB | | | Plasma | [address];[place] | | | | | | [address] | | | | + + + + + + | MPV | 9.1Comment: Testing | fl | EXTERNAL | | | | performed at [facility];[address] | | LAB | | | | [address];[place] | | | | | | [address] | | | | + + + + + + | Differentia | MANUALComment: Testing | | EXTERNAL | | | l Type | performed at [facility];[address] | | LAB | | | | [address];[place] | | | | | | [address] | | | | + + + + + + | Nucleated | 1 (H)Comment: Testing | /100WBC | EXTERNAL | | | Red Blood | performed at [facility];888 | | LAB | | | Cells | [address];[place] | | | | | | [address] | | | | + + + + + + | Segmented | 70Comment: Testing | % | EXTERNAL | | | Neutrophils | performed at [facility];[address] | | LAB | | | Manual | [address];[place] | | | | | | [address] | | | | + + + + + + | % Bands | 4Comment: Testing | % | EXTERNAL | | | | performed at [facility];[address] | | LAB | | | | [address];[place] | | | | | | [address] | | | | + + + + + + | % | 2Comment: Testing | % | EXTERNAL | | | Metamyelocy | performed at [facility];888 | | LAB | | | petros | [address];[place] | | | | | | [address] | | | | + + + + + + | % | 1Comment: Testing | % | EXTERNAL | | | Myelocytes | performed at [facility];[address] | | LAB | | | | [address];[place] | | | | | | [address] | | | | + + + + + + | Lymphocytes | 14Comment: Testing | % | EXTERNAL | | | Manual | performed at [facility];[address] | | LAB | | | | [address];[place] | | | | | | [address] | | | | + + + + + + | Monocytes | 9Comment: Testing | % | EXTERNAL | | | Manual | performed at [facility];[address] | | LAB | | | | [address];[place] | | | | | | [address] | | | | + + + + + + | Absolute | 15.0 (H)Comment: Testing | 1.9 - 7.4 K/uL | EXTERNAL | | | Neutrophils | performed at [facility];888 | | LAB | | | | [address];[place] | | | | | | [address] | | | | + + + + + + | Bands | 0.9 (H)Comment: Testing | 0 - 0.2 K/uL | EXTERNAL | | | Manual | performed at [facility];888 | | LAB | | | | [address];[place] | | | | | | [address] | | | | + + + + + + | Absolute | 0.4 (H)Comment: Testing | K/uL | EXTERNAL | | | Metamyelocy | performed at [facility];888 | | LAB | | | petros | [address];[place] | | | | | | [address] | | | | + + + + + + | Absolute | 0.2 (H)Comment: Testing | K/uL | EXTERNAL | | | Myelocytes | performed at [facility];888 | | LAB | | | | [address];[place] | | | | | | [address] | | | | + + + + + + | Absolute | 3.0Comment: Testing | 1.0 - 3.9 K/uL | EXTERNAL | | | Lymphocytes | performed at [facility];888 | | LAB | | | | [address];[place] | | | | | | [address] | | | | + + + + + + | Absolute | 1.9 (H)Comment: Testing | 0 - 0.8 K/uL | EXTERNAL | | | Monocytes | performed at [facility];888 | | LAB | | | | [address];[place] | | | | | | [address] | | | | + + + + + + | Platelet | ADEQUATEComment: Testing | | EXTERNAL | | | Estimate | performed at [facility];888 | | LAB | | | | [address];[place] | | | | | | [address] | | | | + + + + + + | RBC | 3+Comment: | | EXTERNAL | | | Morphology | ANISO1+HYPO1+TARGETNORMA | | LAB | | | | L PLT MORPHTesting | | | | | | performed at [facility];[address] | | | | | | [facility], [place] | | | | | | [address] | | | | | |TARGET | | | | | |NORMAL PLT MORPH | | | | | |Testing performed at [facility];[address] [facility];[place] [address] | | | | | | | [...] EXTERNAL | | | | performed at [facility];888 | | LAB | | | | [address];[place] | | | | | | [address] | | | | + + + [...] EXTERNAL | | | | performed at [facility];888 | | LAB | | | | [address];[place] | | | | | | [address] | | | | + + + [...] EXTERNAL | | | | performed at [facility];888 | mmol/L | LAB | | | | [address];[place] | | | | | | [address] | | | | + + + + + + | K | 4.2Comment: Testing | 3.5 - 4.9 | EXTERNAL | | | | performed at [facility];888 | mmol/L | LAB | | | | [address];[place] | | | | | | [address] | | | | + + + + + + | Cl | 110 (H)Comment: Testing | 99 - 109 mmol/L | EXTERNAL | | | | performed at [facility];[address] | | LAB | | | | [address];[place] | | | | | | [address] | | | | + + + + + + | CO2 | 35 (H)Comment: Testing | 23 - 32 mmol/L | EXTERNAL | | | | performed at [facility];[address] | | LAB | | | | [address];[place] | | | | | | [address] | | | | + + + + + + | Anion Gap | 8Comment: Testing | 5 - 20 mmol/L | EXTERNAL | | | | performed at [facility];[address] | | LAB | | | | [address];[place] | | | | | | [address] | | | | + + + + + + | Glucose, | 120 (H)Comment: Testing | 65 - 99 mg/dL | EXTERNAL | | | Fasting | performed at [facility];[address] | | LAB | | | | [address];[place] | | | | | | [address] | | | | + + + + + + | BUN | 30 (H)Comment: Testing | 8 - 25 mg/dL | EXTERNAL | | | | performed at [facility];[address] | | LAB | | | | [address];[place] | | | | | | [address] | | | | + + + + + + | Creatinine | 0.87Comment: Testing | 0.50 - 1.00 | EXTERNAL | | | | performed at [facility];888 | mg/dL | LAB | | | | [address];[place] | | | | | | [address] | | | | + + + + + + | BUN/Creatin | 35Comment: Testing | | EXTERNAL | | | ine Ratio | performed at [facility];[address] | | LAB | | | | [address];[place] | | | | | | [address] | | | | + + + + + + | Calcium | 8.0 (L)Comment: Testing | 8.5 - 10.2 | EXTERNAL | | | | performed at [facility];888 | mg/dL | LAB | | | | [address];[place] | | | | | | [address] | | | | + + + [...] | | | | | | at [facility];[address] [place] [address] | | | | | | [facility];[place] [address] | | | | + + + [...] EXTERNAL | | | | performed at [facility];888 | mmol/L | LAB | | | | [address];[place], [place] | | | | | | [address] | | | | + + + [...] | | | Random | performed at [facility];8 | | LAB | | | | [address];[place], [place] | | | | | | [address] | | | | + + + [...] | | | Fingerstick | performed at [facility];[address] | | LAB | | | | [address];[place], [place] | | | | | | [address] | | | | + + + [...] | | | Patient | performed at [facility];[address] | | LAB | | | | [address];[place], [place] | | | | | | [address] | | | | + + + [...] | | | Fingerstick | performed at [facility];[address] | | LAB | | | | [address];[place] | | | | | | [address] | | | | + + + [...] Conversion - 11/24/2018 6:38 AM PDT MACKENZIE HARTLEY13/[id number] yearsXR CHEST 1 | | VIEW04/21/2014 5:52 [...] | | | | | performed at [facility];88 | | | | | | [facility];[place], [place] | | | | | | [address] | | | | + + + [...] EXTERNAL | | | | performed at [facility], [address] | | LAB | | | | [address], | | | | | | [place] [address] | | | | + + +---- + + + | Non- | 3.26 (L)Comment: Testing | 3.7 0 - 5.10 | EXTERNAL | | | Red Blood | performed at [facility], [address] | M/u L | LAB | | | Cells | [address], | | | | | Counted | [place] [address] | | | | + + +---- + + + | Hemoglobin | 8.2 (L)Comment: Testing | 11. 3 - 15.5 | EXTERNAL | | | | performed at [facility], [address] | g/d L | LAB | | | | [address], | | | | | | [place] [address] | | | | + + +---- + + + | Hematocrit, | 27.1 (L)Comment: Testing | 34. 0 - 46.0 % | EXTERNAL | | | POC | performed at [facility], [address] | | LAB | | | | [address], | | | | | | [place] [address] | | | | + + +---- + + + | MCV | 83.1Comment: Testing | 80. 0 - 100.0 fl | EXTERNAL | | | | performed at [facility], [address] | | LAB | | | | [address], | | | | | | [place] [address] | | | | + + +---- + + + | MCH | 25.0 (L)Comment: Testing | 27. 0 - 34.0 pg | EXTERNAL | | | | performed at [facility], [address] | | LAB | | | | [address], | | | | | | [place] [address] | | | | + + +---- + + + | MCHC | 30.1 (L)Comment: Testing | 32. 0 - 35.5 | EXTERNAL | | | | performed at [facility], [address] | g/d L | LAB | | | | [address], | | | | | | [place] [address] | | | | + + +---- + + + | RDW-CV | 67.4 (H)Comment: Testing | 37 - 53 fl | EXTERNAL | | | | performed at [facility], [address] | | LAB | | | | [address], | | | | | | [place] [address] | | | | + + +---- + + + | Platelet | 340Comment: Testing | 150 - 400 K/uL | EXTERNAL | | | Count | performed at [facility], [address] | | LAB | | | Plasma | [address], | | | | | | [place] [address] | | | | + + +---- + + + | MPV | 9.2Comment: Testing | fl | EXTERNAL | | | | performed at [facility], [address] | | LAB | | | | [address], | | | | | | [place] [address] | | | | + + +---- + + + | Differentia | MANUALComment: Testing | | EXTERNAL | | | l Type | performed at [facility], [address] | | LAB | | | | [address], | | | | | | [place] [address] | | | | + + +---- + + + | Nucleated | 1 (H)Comment: Testing | /10 0WBC | EXTERNAL | | | Red Blood | performed at [facility], [address] | | LAB | | | Cells | [address], | | | | | | [place] [address] | | | | + + +---- + + + | Segmented | 80Comment: Testing | % | EXTERNAL | | | Neutrophils | performed at [facility], [address] | | LAB | | | Manual | [address], | | | | | | [place] [address] | | | | + + +---- + + + | % | 2Comment: Testing | % | EXTERNAL | | | Metamyelocy | performed at [facility], [address] | | LAB | | | [address] | [address], | | | | | | [place] [address] | | | | + + +---- + + + | % | 1Comment: Testing | % | EXTERNAL | | | Myelocytes | performed at [facility], [address] | | LAB | | | | [address], | | | | | | [place] [address] | | | | + + +---- + + + | Lymphocytes | 7Comment: Testing | % | EXTERNAL | | | Manual | performed at [facility], [address] | | LAB | | | | [address], | | | | | | [place] [address] | | | | + + +---- + + + | Monocytes | 10Comment: Testing | % | EXTERNAL | | | Manual | performed at [facility], [address] | | LAB | | | | [address], | | | | | | [place] [address] | | | | + + +---- + + + | Absolute | 15.4 (H)Comment: Testing | 1.9 - 7.4 K/uL | EXTERNAL | | | Neutrophils | performed at [facility], [address] | | LAB | | | | [address], | | | | | | [place] [address] | | | | + + +---- + + + | Absolute | 0.4 (H)Comment: Testing | K/u L | EXTERNAL | | | Metamyelocy | performed at [facility], [address] | | LAB | | | petros | [address], | | | | | | [place] [address] | | | | + + +---- + + + | Absolute | 0.2 (H)Comment: Testing | K/u L | EXTERNAL | | | Myelocytes | performed at [facility], [address] | | LAB | | | | [address], | | | | | | [place] [address] | | | | + + +---- + + + | Absolute | 1.3Comment: Testing | 1.0 - 3.9 K/uL | EXTERNAL | | | Lymphocytes | performed at [facility], [address] | | LAB | | | | [address], | | | | | | [place] [address] | | | | + + +---- + + + | Absolute | 1.9 (H)Comment: Testing | 0 - 0.8 K/uL | EXTERNAL | | | Monocytes | performed at [facility], [address] | | LAB | | | | [address], | | | | | | [place] [address] | | | | + + +---- + + + | RBC | 3+Comment: | | EXTERNAL | | | Morphology | ANISO1+TARGETNORMAL PLT | | LAB | | | | MORPHTesting performed | | | | | | at [facility], [address] | | | | | | [address], | | | | | | [place] [address] | | | | | |Testing performed at [facility], [address] [facility], [place] [address] | | | | | | | [...] EXTERNAL | | | | performed at [facility], [address] | | LAB | | | | [address], | | | | | | [place] [address] | | | | + + + [...] EXTERNAL | | | | performed at [facility], [address] | | LAB | | | | [address], | | | | | | [place] [address] | | | | + + + [...] | | | | | [place] [address] | | | | + + + + + + | K | 4.1Comment: Testing | 3.5 - 4.9 | EXTERNAL | | | | performed at [facility], [address] | mmol/L | LAB | | | | [address], | | | | | | [place] [address] | | | | + + + + + + | Cl | 110 (H)Comment: Testing | 99 - 109 mmol/L | EXTERNAL | | | | performed at [facility], [address] | | LAB | | | | [address], | | | | | | [place] [address] | | | | + + + + + + | CO2 | 34 (H)Comment: Testing | 23 - 32 mmol/L | EXTERNAL | | | | performed at [facility], [address] | | LAB | | | | [address], | | | | | | [place] [address] | | | | + + + + + + | Anion Gap | 7Comment: Testing | 5 - 20 mmol/L | EXTERNAL | | | | performed at [facility], [address] | | LAB | | | | [address], | | | | | | [place] [address] | | | | + + + + + + | Glucose, | 133 (H)Comment: Testing | 65 - 99 mg/dL | EXTERNAL | | | Fasting | performed at [facility], [address] | | LAB | | | | [address], | | | | | | [place] [address] | | | | + + + + + + | BUN | 29 (H)Comment: Testing | 8 - 25 mg/dL | EXTERNAL | | | | performed at [facility], [address] | | LAB | | | | [address], | | | | | | [place] [address] | | | | + + + + + + | Creatinine | 0.61Comment: Testing | 0.50 - 1.00 | EXTERNAL | | | | performed at [facility], [address] | mg/dL | LAB | | | | [address], | | | | | | [place] [address] | | | | + + + + + + | BUN/Creatin | 48Comment: Testing | | EXTERNAL | | | ine Ratio | performed at [facility], [address] | | LAB | | | | [address], | | | | | | [place] [address] | | | | + + + + + + | Calcium | 8.3 (L)Comment: Testing | 8.5 - 10.2 | EXTERNAL | | | | performed at [facility], [address] | mg/dL | LAB | | | | [facility] | | | | | | [place] [address] | | | | + + + [...] | | | | | | at [facility], [address] | | | | | | [address], | | | | | | [place] [address] | | | | + + + [...] | | | Patient | performed at [facility];[address] | | LAB | | | | [address];[place] | | | | | | [address] | | | | + + + [...] EXTERNAL | | | | performed at [facility];[address] | mmol/L | LAB | | | | [address];[place], [place] | | | | | | [address] | | | | + + + [...] | | | Fingerstick | performed at [facility];[address] | | LAB | | | | [address];[place] | | | | | | [address] | | | | + + + [...] | | | | | performed at [facility] | | | | | | [address];[place] | | | | | | [address] | | | | + + + [...] | | | | | performed at [facility];[address] | | | | | | [address] [facility];[place], [place] | | | | | | [address] | | | | + + + [...] EXTERNAL | | | | performed at [facility];[address] | mmol/L | LAB | | | | [address];[place], [place] | | | | | | [address] | | | | + + + [...] EXTERNAL | | | | performed at [facility];[address] | | LAB | | | | [address];[place] | | | | | | [address] | | | | + + + [...] | | | Fingerstick | performed at [facility];[address] | | LAB | | | | [address];[place], [place] | | | | | | [address] | | | | + + + [...] EXTERNAL | | | | performed at [facility];[address] | mmol/L | LAB | | | | [address];[place], [place] | | | | | | [address] | | | | + + + [...] EXTERNAL | | | | performed at [facility];[address] | | LAB | | | | [address];[place], [place] | | | | | | [address] | | | | + + + [...] EXTERNAL | | | | performed at [facility];[address] | | LAB | | | | [address];[place] | | | | | | [address] | | | | + + + [...] | | | Fingerstick | performed at [facility];[address] | | LAB | | | | [address];[place], [place] | | | | | | [address] | | | | + + + [...] | 1.05 D-E Excursion: 1.[address] E-F [place]: 0.10 m/s EPSS: 0.24 | | | [...] TR Vmax: 1.63 m/s | | | Waste Handling Technician: GD Authenticated by: SANDOVAL KO MD Report [...] BPMR-R: 756.65 msLAAs | | A4C: 23.48 yo5RCMRP A-L A4C: 64.39 mlLAESV MOD A4C: 63.04 mlLALs A4C: 7.27 cmAo | | Diam: 3.18 cmAV Cusp: 1.94 cmLA Diam: 3.37 cmLA/Ao: 1.05D-E Excursion: 1.76 | | cmE-F [place]: 0.10 m/sEPSS: 0.24 cmHR: 76.38 BPMAV maxP.32 mmHgAV meanPG: | | 3.53 mmHgAV Vmax: 1.25 m/Christine Vmean: 0.89 m/Christine VTI: 20.35 cmAVA Vmax: 2.34 | | cm2AVA (VTI): 2.64 [id number] Dopp: 2.21 l/jnxh5VMFF Dopp: 4.15 l/minHR: 77.06 | | BPMLVOT [...] maxP.67 mmHgTR Vmax: 1.63 m/s | | Waste Handling Technician: Asimticated by: Stevan ASKEW Date/Time: 04-20-2014 18:02:29 [...] | |D-E Excursion: 1.76 cm | |E-F [place]: 0.10 m/s | |EPSS: 0.24 cm | [...] |TR Vmax: 1.63 m/s | | | |Waste Handling Technician: GD | |Authenticated by: SANDOVAL KO MD [...] | LAB | | | | BY [employer] BACK RESULTS | | | | | | VERIFIEDTesting | | | | | | performed at [facility];[address] | | | | | | [address];[place] | | | | | | [address] | | | | + + + [...] | | | | | [place] [address] | | | | + + + [...] EXTERNAL | | | | performed at [facility], [address] | | LAB | | | | [address], | | | | | | [place] [address] | | | | + + + [...] EXTERNAL | | | | performed at [facility] | | LAB | | | | [address];[place] | | | | | | [address] | | | | + + + [...] | | | Fingerstick | performed at [facility];[address] | | LAB | | | | [address];[place] | | | | | | [address] | | | | + + + [...] EXTERNAL | | | | performed at [facility], [address] | | LAB | | | | [address], | | | | | | [place] [address] | | | | + + +---- + + + | Non- | 3.57 (L)Comment: Testing | 3.7 0 - 5.10 | EXTERNAL | | | Red Blood | performed at [facility], [address] | M/u L | LAB | | | Cells | [address], | | | | | Counted | [place] [address] | | | | + + +---- + + + | Hemoglobin | 8.9 (L)Comment: Testing | 11. 3 - 15.5 | EXTERNAL | | | | performed at [facility], [address] | g/d L | LAB | | | | [address], | | | | | | [place] [address] | | | | + + +---- + + + | Hematocrit, | 29.8 (L)Comment: Testing | 34. 0 - 46.0 % | EXTERNAL | | | POC | performed at [facility], [address] | | LAB | | | | [address], | | | | | | [place] [address] | | | | + + +---- + + + | MCV | 83.5Comment: Testing | 80. 0 - 100.0 fl | EXTERNAL | | | | performed at [facility], [address] | | LAB | | | | [address], | | | | | | [place] [address] | | | | + + +---- + + + | MCH | 24.9 (L)Comment: Testing | 27. 0 - 34.0 pg | EXTERNAL | | | | performed at [facility], [address] | | LAB | | | | [address], | | | | | | [place] [address] | | | | + + +---- + + + | MCHC | 29.9 (L)Comment: Testing | 32. 0 - 35.5 | EXTERNAL | | | | performed at [facility], [address] | g/d L | LAB | | | | [address], | | | | | | [place] [address] | | | | + + +---- + + + | RDW-CV | 67.8 (H)Comment: Testing | 37 - 53 fl | EXTERNAL | | | | performed at [facility], [address] | | LAB | | | | [address], | | | | | | [place] [address] | | | | + + +---- + + + | Platelet | 373Comment: Testing | 150 - 400 K/uL | EXTERNAL | | | Count | performed at [facility], [address] | | LAB | | | Plasma | [address], | | | | | | [place] [address] | | | | + + +---- + + + | MPV | 9.3Comment: Testing | fl | EXTERNAL | | | | performed at [facility], [address] | | LAB | | | | [address], | | | | | | [place] [address] | | | | + + +---- + + + | Differentia | MANUALComment: Testing | | EXTERNAL | | | l Type | performed at [facility], [address] | | LAB | | | | [place], | | | | | | [place] [address] | | | | + + +---- + + + | Nucleated | 3 (H)Comment: Testing | /10 0WBC | EXTERNAL | | | Red Blood | performed at [facility], [address] | | LAB | | | Cells | [place], | | | | | | [place] [address] | | | | + + +---- + + + | Segmented | 71Comment: Testing | % | EXTERNAL | | | Neutrophils | performed at [facility], [address] | | LAB | | | Manual | [place], | | | | | | [place] [address] | | | | + + +---- + + + | % Bands | 2Comment: Testing | % | EXTERNAL | | | | performed at [facility], [address] | | LAB | | | | [address], | | | | | | [place] [address] | | | | + + +---- + + + | Lymphocytes | 17Comment: Testing | % | EXTERNAL | | | Manual | performed at [facility], [address] | | LAB | | | | [address], | | | | | | [place] [address] | | | | + + +---- + + + | Monocytes | 9Comment: Testing | % | EXTERNAL | | | Manual | performed at [facility], [address] | | LAB | | | | [address], | | | | | | [place] [address] | | | | + + +---- + + + | Eosinophils | 1Comment: Testing | % | EXTERNAL | | | Manual | performed at [facility], [address] | | LAB | | | | [place], | | | | | | [place] [address] | | | | + + +---- + + + | Absolute | 15.2 (H)Comment: Testing | 1.9 - 7.4 K/uL | EXTERNAL | | | Neutrophils | performed at [facility], [address] | | LAB | | | | [address] [place], | | | | | | [place] [address] | | | | + + +---- + + + | Bands | 0.4 (H)Comment: Testing | 0 - 0.2 K/uL | EXTERNAL | | | Manual | performed at [facility], [address] | | LAB | | | | [place], | | | | | | [place] [address] | | | | + + +---- + + + | Absolute | 3.6Comment: Testing | 1.0 - 3.9 K/uL | EXTERNAL | | | Lymphocytes | performed at [facility], [address] | | LAB | | | | [place], | | | | | | [place] [address] | | | | + + +---- + + + | Absolute | 1.9 (H)Comment: Testing | 0 - 0.8 K/uL | EXTERNAL | | | Monocytes | performed at [facility], [address] | | LAB | | | | [address], | | | | | | [place] [address] | | | | + + +---- + + + | Absolute | 0.2Comment: Testing | 0 - 0.5 K/uL | EXTERNAL | | | Eosinophils | performed at [facility], [address] | | LAB | | | | [place], | | | | | | [place] [address] | | | | + + +---- + + + | RBC | 2+Comment: | | EXTERNAL | | | Morphology | ANISO1+POIK2+HYPO1+MICRO | | LAB | | | | 1+TARGETNORMAL PLT | | | | | | MORPHTesting performed | | | | | | at [facility], [address] | | | | | | [place], | | | | | | [place] [address] | | | | | |1+ | | | | | |MICRO | | | | | |1+ | | | | | |TARGET | | | | | |NORMAL PLT MORPH | | | | | |Testing performed at [facility], [address] [place] [address], [place] [address] | | | | | | | | | | + + +---- + + + | Differentia | SMUDGE CELLSComment: | | EXTERNAL | | | l Comments | Testing performed at | | LAB | | | | [facility], [address] [facility] | | | | | | [place] | | | | | | [address] | | | | + + +---- [...] EXTERNAL | | | | performed at [facility] | mmol/L | LAB | | | | [place] | | | | | | [address] | | | | + + + [...] | | | | | | [place] [address] | | | | + + + + + + | T3, Total | 102Comment: Testing | 80 - 200 ng/dL | EXTERNAL | | | | performed at [facility], [address] | | LAB | | | | [place] | | | | | | [place] [address] | | | | + + + [...] EXTERNAL | | | | performed at [facility];[address] | | LAB | | | | [address];[place], [place] | | | | | | [address] | | | | + + + [...] | | | | | | at [facility];[address] [place] [address] | | | | | | [facility];[place] [address] | | | | + + + [...] EXTERNAL | | | | performed at [facility] | | LAB | | | | [place] | | | | | | [address] | | | | + + + [...] | | | | | | ACUTE OH Testing | | | | | | performed at [facility] | | | | | | [place] | | | | | | [address] | | | | + + + [...] [place] | | | | | | [address] | | | | + + + + + + | HEP B | NON REACTIVEComment: | | EXTERNAL | | | SURFACE | Testing performed at | | LAB | | | ANTIBODY | [facility], [address] | | | | | | [place] | | | | | | [address] | | | | + + + + + + | HEP B CORE | NON REACTIVEComment: | | EXTERNAL | | | IgM | Testing performed at | | LAB | | | | [facility], [address] | | | | | | [place] | | | | | | [address] | | | | + + + + + + | HCV Ab | NON REACTIVEComment: | | EXTERNAL | | | | Testing performed at | | LAB | | | | [facility], [address] | | | | | | [place] | | | | | | [address] | | | | + + + + + + | Hepatitis | No serologic evidence of | | EXTERNAL | | | Interp.: | HAV, HBV, or HCV | | LAB | | | | infection.Comment: | | | | | | Testing performed at | | | | | | [facility], [address] [facility] | | | | | | [place] | | | | | | [address] | | | | + + + [...] | | | | | | P,CHROMATIN, OIL CHANGER, SM | | | | | | OIL CHANGER, SCL-70, CENTROMERE | | | | | | B, SSA, SSB AND SHAZIA-1) | | | | | | WASPERFORMED AND NO | | | | | | AUTOANTIBODIES WERE | | | | | | DETECTED.Testing | | | | | | performed at [facility], [address] | | | | | | [facility] | | | | | | [place] [address] | | | | + + + + + + | ANCA Screen | <1:20Comment: REFERENCE | | EXTERNAL | | | | RANGE: <1:20Testing | | LAB | | | | performed at [facility], [address] | | | | | | [place] | | | | | | [place] [address] | | | | + + + [...] | | | | sting performed at [facility], | | | | | | [address] | | | | | | [place] [address] | | | | + + + [...] | | | | | | at [facility], [address] | | | | | | [place] | | | | | | [address] | | | | + + + [...] | | | Patient | performed at [facility];[address] | | LAB | | | | [place] | | | | | | [address] | | | | + + + [...] | | | | | performed at [facility] | | | | | | [facility];[place], [place] | | | | | | [address] | | | | + + + [...] | | | FACTOR | performed at [facility], [address] | | LAB | | | | [address], | | | | | | [place] [address] | | | | + + + [...] EXTERNAL | | | | performed at [facility], [address] | uIU/mL | LAB | | | | [address], | | | | | | [place] [address] | | | | + + + [...] | | | (REF) | performed at [facility], [address] | | LAB | | | | [place] [address], | | | | | | [place] [address] | | | | + + + [...] | | | | | [place] [address] | | | | + + + [...] EXTERNAL | | | | performed at [facility], [address] | | LAB | | | | [place], | | | | | | [place] [address] | | | | + + + [...] | | | | | performed at [facility], [address] | | | | | | [address] [facility], | | | | | | [place] [address] | | | | + + + [...] | | | | | performed at [facility], [address] | | | | | | [facility], | | | | | | [place] [address] | | | | + + + [...] EXTERNAL | | | | performed at [facility] | | LAB | | | | [address];[place], [place] | | | | | | [address] | | | | + + + [...] | | | | | [place] [address] | | | | + + + + + + | Albumin | 2.2 (L)Comment: Testing | 3.6 - 5.0 g/dL | EXTERNAL | | | | performed at [facility], [address] | | LAB | | | | [address], | | | | | | [place] [address] | | | | + + + + + + | Bilirubin | 0.5Comment: Testing | 0.1 - 1.5 mg/dL | EXTERNAL | | | Total | performed at [facility], [address] | | LAB | | | | [address], | | | | | | [place] [address] | | | | + + + + + + | Bilirubin | 0.1Comment: Testing | 0.0 - 0.3 mg/dL | EXTERNAL | | | Direct | performed at [facility], [address] | | LAB | | | | [address], | | | | | | [place] [address] | | | | + + + + + + | ALP, | 112Comment: Testing | 35 - 115 U/L | EXTERNAL | | | External | performed at [facility], [address] | | LAB | | | | [address], | | | | | | [place] [address] | | | | + + + + + + | AST | 31Comment: Testing | 10 - 45 U/L | EXTERNAL | | | | performed at [facility], [address] | | LAB | | | | [address], | | | | | | [place] [address] | | | | + + + + + + | ALT | 15Comment: Testing | 10 - 65 U/L | EXTERNAL | | | | performed at [facility], [address] | | LAB | | | | [address], | | | | | | [place] [address] | | | | + + + [...] | | | | | [place] [address] | | | | + + + + + + | Triglycerid | 398 (H)Comment: Testing | mg/dL | EXTERNAL | | | es | performed at [facility], [address] | | LAB | | | | [address], | | | | | | [place] [address] | | | | + + + + + + | HDL | 48Comment: Testing | mg/dL | EXTERNAL | | | | performed at [facility], [address] | | LAB | | | | [address], | | | | | | [place] [address] | | | | + + + + + + | LDL, | 35Comment: Testing | mg/dL | EXTERNAL | | | Calculated | performed at [facility], [address] | | LAB | | | | [address], | | | | | | [place] [address] | | | | + + + [...] | | | | | [place] [address] | | | | + + + + + + | K | 3.1 (L)Comment: Testing | 3.5 - 4.9 | EXTERNAL | | | | performed at [facility], [address] | mmol/L | LAB | | | | [place] [place], | | | | | | [place] [address] | | | | + + + + + + | Cl | 108Comment: Testing | 99 - 109 mmol/L | EXTERNAL | | | | performed at [facility], [address] | | LAB | | | | [address], | | | | | | [place] [address] | | | | + + + + + + | CO2 | 31Comment: Testing | 23 - 32 mmol/L | EXTERNAL | | | | performed at [facility], [address] | | LAB | | | | [address], | | | | | | [place] [address] | | | | + + + + + + | Anion Gap | 8Comment: Testing | 5 - 20 mmol/L | EXTERNAL | | | | performed at [facility], [address] | | LAB | | | | [address], | | | | | | [place] [address] | | | | + + + + + + | Glucose, | 135 (H)Comment: Testing | 65 - 99 mg/dL | EXTERNAL | | | Fasting | performed at [facility], [address] | | LAB | | | | [address], | | | | | | [place] [address] | | | | + + + + + + | BUN | 25Comment: Testing | 8 - 25 mg/dL | EXTERNAL | | | | performed at [facility], [address] | | LAB | | | | [address], | | | | | | [place] [address] | | | | + + + + + + | Creatinine | 0.58Comment: Testing | 0.50 - 1.00 | EXTERNAL | | | | performed at [facility], [address] | mg/dL | LAB | | | | [address], | | | | | | [place] [address] | | | | + + + + + + | BUN/Creatin | 43Comment: Testing | | EXTERNAL | | | ine Ratio | performed at [facility], [address] | | LAB | | | | [address], | | | | | | [place] [address] | | | | + + + + + + | Calcium | 7.8 (L)Comment: Testing | 8.5 - 10.2 | EXTERNAL | | | | performed at [facility], [address] | mg/dL | LAB | | | | [address], | | | | | | [place] [address] | | | | + + + [...] | | | | | [place] [address] | | | | + + + [...] ALBICANSAbnormal | | | Testing performed at [facility], [address] [facility] [place] | | | [address] | | + + + + +---------+ [...] | | | Fingerstick | performed at [facility];[address] | | LAB | | | | [place] | | | | | | [address] | | | | + + + [...] GROWTH | | | Testing performed at [facility], [address] | | | [place] [address] | | + + + + +---------+ [...] | | tubes are noted on the turbine measurements engineer image. | | + + + + [...] and endotracheal tubes are noted on the turbine measurements engineer image. IMPRESSION: 1. No acute | | [...] and endotracheal tubes are noted on the turbine measurements engineer im age. | | | |IMPRESSION: | [...] PORT | | | Testing performed at [facility];[address];[place] [address] CULTURE | | | NO GROWTH | | | Testing performed at [facility], [address] [facility], [place], [place] | | | [address] | | + + + + +---------+ [...] | | | | | | at [facility], [address] | | | | | | [place] | | | | | | [address] | | | | + + + [...] EXTERNAL | | | | performed at [facility];8 | | LAB | | | | [address];[place], [place] | | | | | | [address] | | | | + + + [...] LAB | | | | performed at [facility];[address] | | | | | | [address];[place], [place] | | | | | | [address] | | | | + + + [...] EXTERNAL | | | | performed at [facility];[address] | mmol/L | LAB | | | | [address];[place] | | | | | | [address] | | | | + + + + + + | K | 4.1Comment: SLT | 3.5 - 4.9 | EXTERNAL | | | | HEMOLYSISTesting | mmol/L | LAB | | | | performed at [facility];[address] | | | | | | [place] | | | | | | [address] | | | | + + + + + + | Cl | 113 (H)Comment: Testing | 99 - 109 mmol/L | EXTERNAL | | | | performed at [facility];[address] | | LAB | | | | [address];[place] | | | | | | [address] | | | | + + + + + + | CO2 | 29Comment: Testing | 23 - 32 mmol/L | EXTERNAL | | | | performed at [facility];[address] | | LAB | | | | [address];[place] | | | | | | [address] | | | | + + + + + + | Anion Gap | 11Comment: Testing | 5 - 20 mmol/L | EXTERNAL | | | | performed at [facility];[address] | | LAB | | | | [address];[place] | | | | | | [address] | | | | + + + + + + | Glucose, | 120 (H)Comment: Testing | 65 - 99 mg/dL | EXTERNAL | | | Fasting | performed at [facility];[address] | | LAB | | | | [address];[place] | | | | | | [address] | | | | + + + + + + | BUN | 25Comment: Testing | 8 - 25 mg/dL | EXTERNAL | | | | performed at [facility];[address] | | LAB | | | | [address];[place] | | | | | | [address] | | | | + + + + + + | Creatinine | 0.72Comment: Testing | 0.50 - 1.00 | EXTERNAL | | | | performed at [facility];[address] | mg/dL | LAB | | | | [address];[place] | | | | | | [address] | | | | + + + + + + | BUN/Creatin | 35Comment: Testing | | EXTERNAL | | | ine Ratio | performed at [facility];[address] | | LAB | | | | [address];[place] | | | | | | [address] | | | | + + + + + + | Calcium | 8.3 (L)Comment: Testing | 8.5 - 10.2 | EXTERNAL | | | | performed at [facility];[address] | mg/dL | LAB | | | | [address];[place], [place] | | | | | | [address] | | | | + + + [...] | | | | | | at [facility];[address];[place] [address] | | | | + + + [...] LAC | | | Testing performed at [facility];8 | | | [address];[place] [address] CULTURE | | | NO GROWTH | | | Testing performed at [facility], [address] [facility], [place], [place] | | | [address] | | + + + + +---------+ [...] | | | Fingerstick | performed at [facility];[address] | | LAB | | | | [address];[place] | | | | | | [address] | | | | + + + [...] | | | | | performed at [facility] | | | | | | [facility];[place], [place] | | | | | | [address] | | | | + + + [...] | | | Fingerstick | performed at [facility];[address] | | LAB | | | | [address];[place] | | | | | | [address] | | | | + + + [...] | EXTERNAL LAB | | performed at [facility];[address] [facility];[place] [address] 027 NAP1 BI | | | 027 NAP1 BI PRESUMPTIVE NEGATIVE | | | Detection of 027 NAP1 BI strains of C. difficile is presumptive and | | | for epidemiological purposes and not intended to guide or monitor | | | treatment for C. difficile infections. Testing performed at [facility];8 | | | [facility];[place] [address] | | + + + + +---------+ [...] EXTERNAL | | | | performed at [facility];[address] | mmol/L | LAB | | | | [address];[place], [place] | | | | | | [address] | | | | + + + [...] EXTERNAL | | | | performed at [facility] | | LAB | | | | [address] [place] | | | | | | [address] | | | | + + + [...] EXTERNAL | | | | performed at [facility];[address] | | LAB | | | | [address];[place], [place] | | | | | | [address] | | | | + + + [...] | | | Fingerstick | performed at [facility];[address] | | LAB | | | | [address] | | | | | | [address] | | | | + + + [...] | | | | | performed at [facility] | | | | | | [facility];[place] | | | | | | [address] | | | | + + + [...] EXTERNAL | | | | performed at [facility], [address] | | LAB | | | | [address], | | | | | | [place] [address] | | | | + + +---- + + + | Non- | 3.63 (L)Comment: Testing | 3.7 0 - 5.10 | EXTERNAL | | | Red Blood | performed at [facility], [address] | M/u L | LAB | | | Cells | [address], | | | | | Counted | [place] [address] | | | | + + +---- + + + | Hemoglobin | 9.7 (L)Comment: Testing | 11. 3 - 15.5 | EXTERNAL | | | | performed at [facility], [address] | g/d L | LAB | | | | [address], | | | | | | [place] [address] | | | | + + +---- + + + | Hematocrit, | 30.8 (L)Comment: Testing | 34. 0 - 46.0 % | EXTERNAL | | | POC | performed at [facility], [address] | | LAB | | | | [address], | | | | | | [place] [address] | | | | + + +---- + + + | MCV | 84.8Comment: Testing | 80. 0 - 100.0 fl | EXTERNAL | | | | performed at [facility], [address] | | LAB | | | [address], | | | | | | [place] [address] | | | | + + +---- + + + | MCH | 26.8 (L)Comment: Testing | 27. 0 - 34.0 pg | EXTERNAL | | | | performed at [facility], [address] | | LAB | | | | [address], | | | | | | [place] [address] | | | | + + +---- + + + | MCHC | 31.6 (L)Comment: Testing | 32. 0 - 35.5 | EXTERNAL | | | | performed at [facility], [address] | g/d L | LAB | | | | [address], | | | | | | [place] [address] | | | | + + +---- + + + | RDW-CV | 68.3 (H)Comment: Testing | 37 - 53 fl | EXTERNAL | | | | performed at [facility], [address] | | LAB | | | | [address], | | | | | | [place] [address] | | | | + + +---- + + + | Platelet | 388Comment: Testing | 150 - 400 K/uL | EXTERNAL | | | Count | performed at [facility], [address] | | LAB | | | Plasma | [address], | | | | | | [place] [address] | | | | + + +---- + + + | MPV | 9.6Comment: Testing | fl | EXTERNAL | | | | performed at [facility], [address] | | LAB | | | | [address], | | | | | | [place] [address] | | | | + + +---- + + + | Differentia | MANUALComment: Testing | | EXTERNAL | | | l Type | performed at [facility], [address] | | LAB | | | | [address], | | | | | | [place] [address] | | | | + + +---- + + + | Nucleated | 1 (H)Comment: Testing | /10 0WBC | EXTERNAL | | | Red Blood | performed at [facility], [address] | | LAB | | | Cells | [address], | | | | | | [place] [address] | | | | + + +---- + + + | Segmented | 77Comment: Testing | % | EXTERNAL | | | Neutrophils | performed at [facility], [address] | | LAB | | | Manual | [address], | | | | | | [place] [address] | | | | + + +---- + + + | % Bands | 6Comment: Testing | % | EXTERNAL | | | | performed at [facility], [address] | | LAB | | | | [address], | | | | | | [place] [address] | | | | + + +---- + + + | % | 2Comment: Testing | % | EXTERNAL | | | Metamyelocy | performed at [facility], [address] | | LAB | | | petros | [address], | | | | | | [place] [address] | | | | + + +---- + + + | Lymphocytes | 12Comment: Testing | % | EXTERNAL | | | Manual | performed at [facility], [address] | | LAB | | | | [address], | | | | | | [place] [address] | | | | + + +---- + + + | Monocytes | 3Comment: Testing | % | EXTERNAL | | | Manual | performed at [facility], [address] | | LAB | | | | [address], | | | | | | [place] [address] | | | | + + +---- + + + | Absolute | 14.0 (H)Comment: Testing | 1.9 - 7.4 K/uL | EXTERNAL | | | Neutrophils | performed at [facility], [address] | | LAB | | | | [address], | | | | | | [place] [address] | | | | + + +---- + + + | Bands | 1.1 (H)Comment: Testing | 0 - 0.2 K/uL | EXTERNAL | | | Manual | performed at [facility], [address] | | LAB | | | | [address], | | | | | | [place] [address] | | | | + + +---- + + + | Absolute | 0.4 (H)Comment: Testing | K/u L | EXTERNAL | | | Metamyelocy | performed at [facility], [address] | | LAB | | | [address] | [address], | | | | | | [place] [address] | | | | + + +---- + + + | Absolute | 2.2Comment: Testing | 1.0 - 3.9 K/uL | EXTERNAL | | | Lymphocytes | performed at [facility], [address] | | LAB | | | | [address], | | | | | | [place] [address] | | | | + + +---- + + + | Absolute | 0.5Comment: Testing | 0 - 0.8 K/uL | EXTERNAL | | | Monocytes | performed at [facility], [address] | | LAB | | | | [address], | | | | | | [place] [address] | | | | + + +---- + + + | RBC | 2+Comment: | | EXTERNAL | | | Morphology | ANISO1+POIK2+HYPO1+MICRO | | LAB | | | | 1+TARGETNORMAL PLT | | | | | | MORPHTesting performed | | | | | | at [facility], [address] | | | | | | [facility], | | | | | | [place] [address] | | | | | |1+ | | | | | |MICRO | | | | | |1+ | | | | | |TARGET | | | | | |NORMAL PLT MORPH | | | | | |Testing performed at [facility], [address] [place] [address] | | | | | | | [...] | | | | | [place] [address] | | | | + + + [...] EXTERNAL | | | | performed at [facility], [address] | | LAB | | | | [address], | | | | | | [place] [address] | | | | + + + [...] | | | | | [place] [address] | | | | + + + + + + | K | 3.1 (L)Comment: Testing | 3.5 - 4.9 | EXTERNAL | | | | performed at [facility], [address] | mmol/L | LAB | | | | [address], | | | | | | [place] [address] | | | | + + + + + + | Cl | 105Comment: Testing | 99 - 109 mmol/L | EXTERNAL | | | | performed at [facility], [address] | | LAB | | | | [address], | | | | | | [place] [address] | | | | + + + + + + | CO2 | 29Comment: Testing | 23 - 32 mmol/L | EXTERNAL | | | | performed at [facility], [address] | | LAB | | | | [address], | | | | | | [place] [address] | | | | + + + + + + | Anion Gap | 9Comment: Testing | 5 - 20 mmol/L | EXTERNAL | | | | performed at [facility], [address] | | LAB | | | | [address], | | | | | | [place] [address] | | | | + + + + + + | Glucose, | 159 (H)Comment: Testing | 65 - 99 mg/dL | EXTERNAL | | | Fasting | performed at [facility], [address] | | LAB | | | | [address], | | | | | | [place] [address] | | | | + + + + + + | BUN | 17Comment: Testing | 8 - 25 mg/dL | EXTERNAL | | | | performed at [facility], [address] | | LAB | | | | [address], | | | | | | [place] [address] | | | | + + + + + + | Creatinine | 0.41 (L)Comment: Testing | 0.50 - 1.00 | EXTERNAL | | | | performed at [facility], [address] | mg/dL | LAB | | | | [address], | | | | | | [place] [address] | | | | + + + + + + | BUN/Creatin | 41Comment: Testing | | EXTERNAL | | | ine Ratio | performed at [facility], [address] | | LAB | | | | [address], | | | | | | [place] [address] | | | | + + + + + + | Calcium | 7.8 (L)Comment: Testing | 8.5 - 10.2 | EXTERNAL | | | | performed at [facility], [address] | mg/dL | LAB | | | | [facility], | | | | | | [place] [address] | | | | + + + [...] W | | | | | | [facility], | | | | | | [place] [address] | | | | + + + [...] | | | Fingerstick | performed at [facility];[address] | | LAB | | | | [address];[place] | | | | | | [address] | | | | + + + [...] | | | Fingerstick | performed at [facility];[address] | | LAB | | | | [address];[place], [place] | | | | | | [address] | | | | + + + [...] EXTERNAL | | | | performed at [facility];[address] | mmol/L | LAB | | | | [address];[place] | | | | | | [address] | | | | + + + [...] | | | Fingerstick | performed at [facility];[address] | | LAB | | | | [address];[place], [place] | | | | | | [address] | | | | + + + [...] | | | Fingerstick | performed at [facility];[address] | | LAB | | | | [address];[place], [place] | | | | | | [address] | | | | + + + [...] | | | | | performed at [facility] | | | | | | [facility], [place] | | | | | | [address] | | | | + + + [...] EXTERNAL | | | | performed at [facility], [address] | | LAB | | | | [address], | | | | | | [place] [address] | | | | + + +---- + + + | Non- | 3.55 (L)Comment: Testing | 3.7 0 - 5.10 | EXTERNAL | | | Red Blood | performed at [facility], [address] | M/u L | LAB | | | Cells | [address], | | | | | Counted | [place] [address] | | | | + + +---- + + + | Hemoglobin | 8.8 (L)Comment: RESULT | 11. 3 - 15.5 | EXTERNAL | | | | VERIFIEDTesting | g/d L | LAB | | | | performed at [facility], [address] | | | | | | [address], | | | | | | [place] [address] | | | | + + +---- + + + | Hematocrit, | 29.5 (L)Comment: RESULT | 34. 0 - 46.0 % | EXTERNAL | | | POC | VERIFIEDTesting | | LAB | | | | performed at [facility], [address] | | | | | | [address], | | | | | | [place] [address] | | | | + + +---- + + + | MCV | 83.2Comment: Testing | 80. 0 - 100.0 fl | EXTERNAL | | | | performed at [facility], [address] | | LAB | | | | [address], | | | | | | [place] [address] | | | | + + +---- + + + | MCH | 24.8 (L)Comment: Testing | 27. 0 - 34.0 pg | EXTERNAL | | | | performed at [facility], [address] | | LAB | | | | [address], | | | | | | [place] [address] | | | | + + +---- + + + | MCHC | 29.8 (L)Comment: Testing | 32. 0 - 35.5 | EXTERNAL | | | | performed at [facility], [address] | g/d L | LAB | | | | [address], | | | | | | [place] [address] | | | | + + +---- + + + | RDW-CV | 64.8 (H)Comment: Testing | 37 - 53 fl | EXTERNAL | | | | performed at [facility], [address] | | LAB | | | | [address], | | | | | | [place] [address] | | | | + + +---- + + + | Platelet | 397Comment: Testing | 150 - 400 K/uL | EXTERNAL | | | Count | performed at [facility], [address] | | LAB | | | Plasma | [address], | | | | | | [place] [address] | | | | + + +---- + + + | MPV | 9.2Comment: Testing | fl | EXTERNAL | | | | performed at [facility], [address] | | LAB | | | | [address], | | | | | | [place] [address] | | | | + + +---- + + + | Differentia | MANUALComment: Testing | | EXTERNAL | | | l Type | performed at [facility], [address] | | LAB | | | | [address], | | | | | | [place] [address] | | | | + + +---- + + + | Nucleated | 2 (H)Comment: Testing | /10 0WBC | EXTERNAL | | | Red Blood | performed at [facility], [address] | | LAB | | | Cells | [address], | | | | | | [place] [address] | | | | + + +---- + + + | Segmented | 72Comment: Testing | % | EXTERNAL | | | Neutrophils | performed at [facility], [address] | | LAB | | | Manual | [address], | | | | | | [place] [address] | | | | + + +---- + + + | % | 2Comment: Testing | % | EXTERNAL | | | Metamyelocy | performed at [facility], [address] | | LAB | | | petros | [address], | | | | | | [place] [address] | | | | + + +---- + + + | Lymphocytes | 15Comment: Testing | % | EXTERNAL | | | Manual | performed at [facility], [address] | | LAB | | | | [address], | | | | | | [place] [address] | | | | + + +---- + + + | Monocytes | 10Comment: Testing | % | EXTERNAL | | | Manual | performed at [facility], [address] | | LAB | | | | [address] [address], | | | | | | [place] [address] | | | | + + +---- + + + | Eosinophils | 1Comment: Testing | % | EXTERNAL | | | Manual | performed at [facility], [address] | | LAB | | | | [place], | | | | | | [place] [address] | | | | + + +---- + + + | Absolute | 16.5 (H)Comment: Testing | 1.9 - 7.4 K/uL | EXTERNAL | | | Neutrophils | performed at [facility], [address] | | LAB | | | | [address], | | | | | | [place] [address] | | | | + + +---- + + + | Absolute | 0.5 (H)Comment: Testing | K/u L | EXTERNAL | | | Metamyelocy | performed at [facility], [address] | | LAB | | | [address] | [place], | | | | | | [place] [address] | | | | + + +---- + + + | Absolute | 3.4Comment: Testing | 1.0 - 3.9 K/uL | EXTERNAL | | | Lymphocytes | performed at [facility], [address] | | LAB | | | | [address], | | | | | | [place] [address] | | | | + + +---- + + + | Absolute | 2.3 (H)Comment: Testing | 0 - 0.8 K/uL | EXTERNAL | | | Monocytes | performed at [facility], [address] | | LAB | | | | [address], | | | | | | [place] [address] | | | | + + +---- + + + | Absolute | 0.2Comment: Testing | 0 - 0.5 K/uL | EXTERNAL | | | Eosinophils | performed at [facility], [address] | | LAB | | | | [address], | | | | | | [place] [address] | | | | + + +---- + + + | RBC | 2+Comment: | | EXTERNAL | | | Morphology | ANISO1+POIK2+HYPO1+TARGE | | LAB | | | | TNORMAL PLT MORPHTesting | | | | | | performed at [facility], [address] | | | | | [address], | | | | | | [place] [address] | | | | | |HYPO | | | | | |1+ | | | | | |TARGET | | | | | |NORMAL PLT MORPH | | | | | |Testing performed at [facility], [address] [place] [address] | | | | | | | [...] EXTERNAL | | | | performed at [facility], [address] | | LAB | | | | [address], | | | | | | [place] [address] | | | | + + + [...] EXTERNAL | | | | performed at [facility], [address] | | LAB | | | | [address], | | | | | | [place] [address] | | | | + + + [...] | | | | | [place] [address] | | | | + + + + + + | K | 3.2 (L)Comment: Testing | 3.5 - 4.9 | EXTERNAL | | | | performed at [facility], [address] | mmol/L | LAB | | | | [address], | | | | | | [place] [address] | | | | + + + + + + | Cl | 113 (H)Comment: Testing | 99 - 109 mmol/L | EXTERNAL | | | | performed at [facility], [address] | | LAB | | | | [address], | | | | | | [place] [address] | | | | + + + + + + | CO2 | 30Comment: Testing | 23 - 32 mmol/L | EXTERNAL | | | | performed at [facility], [address] | | LAB | | | | [address], | | | | | | [place] [address] | | | | + + + + + + | Anion Gap | 7Comment: Testing | 5 - 20 mmol/L | EXTERNAL | | | | performed at [facility], [address] | | LAB | | | | [address], | | | | | | [place] [address] | | | | + + + + + + | Glucose, | 133 (H)Comment: Testing | 65 - 99 mg/dL | EXTERNAL | | | Fasting | performed at [facility], [address] | | LAB | | | | [address], | | | | | | [place] [address] | | | | + + + + + + | BUN | 22Comment: Testing | 8 - 25 mg/dL | EXTERNAL | | | | performed at [facility], [address] | | LAB | | | | [address], | | | | | | [place] [address] | | | | + + + + + + | Creatinine | 0.68Comment: Testing | 0.50 - 1.00 | EXTERNAL | | | | performed at [facility], [address] | mg/dL | LAB | | | | [address], | | | | | | [place] [address] | | | | + + + + + + | BUN/Creatin | 32Comment: Testing | | EXTERNAL | | | ine Ratio | performed at [facility], [address] | | LAB | | | | [address], | | | | | | [place] [address] | | | | + + + + + + | Calcium | 7.8 (L)Comment: Testing | 8.5 - 10.2 | EXTERNAL | | | | performed at [facility], [address] | mg/dL | LAB | | | | [address], | | | | | | [place] [address] | | | | + + + [...] | | | | | | at [facility], [address] | | | | | | [address]un [facility], | | | | | | [place] [address] | | | | + + + [...] | | | Fingerstick | performed at [facility] | | LAB | | | | [address];[place], [place] | | | | | | [address] | | | | + + + [...] EXTERNAL | | | | performed at [facility];[address] | mmol/L | LAB | | | | [address];[place], [place] | | | | | | [address] | | | | + + + [...] EXTERNAL | | | | performed at [facility];[address] | | LAB | | | | [address];[place] | | | | | | [address] | | | | + + + [...] EXTERNAL | | | | performed at [facility];[address] | | LAB | | | | [address];[place] | | | | | | [address] | | | | + + + [...] | | | Fingerstick | performed at [facility];[address] | | LAB | | | | [address];[place] | | | | | | [address] | | | | + + + [...] EXTERNAL | | | | performed at [facility];[address] | mmol/L | LAB | | | | [address];[place] | | | | | | [address] | | | | + + + [...] | | | | | performed at [facility] | | | | | | [facility];[place], [place] | | | | | | [address] | | | | + + + [...] | | | Fingerstick | performed at [facility];[address] | | LAB | | | | [address];[place], [place] | | | | | | [address] | | | | + + + [...] | | | Fingerstick | performed at [facility];[address] | | LAB | | | | [address];[place] | | | | | | [address] | | | | + + + [...] | | | | | performed at [facility];[address] | | | | | | [address];[place] | | | | | | [address] | | | | + + + [...] EXTERNAL | | | | performed at [facility];[address] | | LAB | | | | [address];[place] | | | | | | [address] | | | | + + + + + + | Non- | 3.78Comment: Testing | 3.70 - 5.10 | EXTERNAL | | | Red Blood | performed at [facility];[address] | M/uL | LAB | | | Cells | [address];[place] | | | | | Counted | [address] | | | | + + + + + + | Hemoglobin | 9.2 (L)Comment: Testing | 11.3 - 15.5 | EXTERNAL | | | | performed at [facility];[address] | g/dL | LAB | | | | [address];[place] | | | | | | [address] | | | | + + + + + + | Hematocrit, | 30.7 (L)Comment: Testing | 34.0 - 46.0 % | EXTERNAL | | | POC | performed at [facility];[address] | | LAB | | | | [address];[place] | | | | | | [address] | | | | + + + + + + | MCV | 81.2Comment: Testing | 80.0 - 100.0 fl | EXTERNAL | | | | performed at [facility];[address] | | LAB | | | | [address];[place] | | | | | | [address] | | | | + + + + + + | MCH | 24.2 (L)Comment: Testing | 27.0 - 34.0 pg | EXTERNAL | | | | performed at [facility];[address] | | LAB | | | | [address];[place] | | | | | | [address] | | | | + + + + + + | MCHC | 29.8 (L)Comment: Testing | 32.0 - 35.5 | EXTERNAL | | | | performed at [facility];888 | g/dL | LAB | | | | [address];[place] | | | | | | [address] | | | | + + + + + + | RDW-CV | 63.4 (H)Comment: Testing | 37 - 53 fl | EXTERNAL | | | | performed at [facility];[address] | | LAB | | | | [address];[place] | | | | | | [address] | | | | + + + + + + | Platelet | 385Comment: Testing | 150 - 400 K/uL | EXTERNAL | | | Count | performed at [facility];[address] | | LAB | | | Plasma | [address];[place] | | | | | | [address] | | | | + + + + + + | MPV | 9.1Comment: Testing | fl | EXTERNAL | | | | performed at [facility];[address] | | LAB | | | | [address];[place] | | | | | | [address] | | | | + + + + + + | Differentia | MANUALComment: Testing | | EXTERNAL | | | l Type | performed at [facility];[address] | | LAB | | | | [address];[place] | | | | | | [address] | | | | + + + + + + | Segmented | 83Comment: Testing | % | EXTERNAL | | | Neutrophils | performed at [facility];[address] | | LAB | | | Manual | [address];[place] | | | | | | [address] | | | | + + + + + + | % Bands | 2Comment: Testing | % | EXTERNAL | | | | performed at [facility];[address] | | LAB | | | | [address];[place] | | | | | | [address] | | | | + + + + + + | % | 1Comment: Testing | % | EXTERNAL | | | Metamyelocy | performed at [facility];[address] | | LAB | | | petros | [address];[place] | | | | | | [address] | | | | + + + + + + | Lymphocytes | 6Comment: Testing | % | EXTERNAL | | | Manual | performed at [facility];[address] | | LAB | | | | [address];[place] | | | | | | [address] | | | | + + + + + + | Monocytes | 8Comment: Testing | % | EXTERNAL | | | Manual | performed at [facility];[address] | | LAB | | | | [address];[place] | | | | | | [address] | | | | + + + + + + | Absolute | 15.9 (H)Comment: Testing | 1.9 - 7.4 K/uL | EXTERNAL | | | Neutrophils | performed at [facility];[address] | | LAB | | | | [address];[place] | | | | | | [address] | | | | + + + + + + | Bands | 0.4 (H)Comment: Testing | 0 - 0.2 K/uL | EXTERNAL | | | Manual | performed at [facility];[address] | | LAB | | | | [address];[place] | | | | | | [address] | | | | + + + + + + | Absolute | 0.2 (H)Comment: Testing | K/uL | EXTERNAL | | | Metamyelocy | performed at [facility];[address] | | LAB | | | petros | [address];[place] | | | | | | [address] | | | | + + + + + + | Absolute | 1.2Comment: Testing | 1.0 - 3.9 K/uL | EXTERNAL | | | Lymphocytes | performed at [facility];[address] | | LAB | | | | [address];[place] | | | | | | [address] | | | | + + + + + + | Absolute | 1.5 (H)Comment: Testing | 0 - 0.8 K/uL | EXTERNAL | | | Monocytes | performed at [facility];[address] | | LAB | | | | [address];[place] | | | | | | [address] | | | | + + + + + + | Platelet | ADEQUATEComment: Testing | | EXTERNAL | | | Estimate | performed at [facility];[address] | | LAB | | | | [facility];[place] | | | | | | [address] | | | | + + + + + + | RBC | 1+Comment: | | EXTERNAL | | | Morphology | ANISO1+HYPO1+POIK1+TARGE | | LAB | | | | TNORMAL PLT MORPHTesting | | | | | | performed at [facility];[address] | | | | | | [facility];[place] | | | | | | [address] | | | | | |POIK | | | | | |1+ | | | | | |TARGET | | | | | |NORMAL PLT MORPH | | | | | |Testing performed at [facility];[address] [facility];[place] [address] | | | | | | | [...] EXTERNAL | | | | performed at [facility];[address] | | LAB | | | | [address];[place] | | | | | | [address] | | | | + + + [...] EXTERNAL | | | | performed at [facility];[address] | | LAB | | | | [address];[place], [place] | | | | | | [address] | | | | + + + [...] EXTERNAL | | | | performed at [facility];[address] | mmol/L | LAB | | | | [address];[place] | | | | | | [address] | | | | + + + + + + | K | 3.1 (L)Comment: Testing | 3.5 - 4.9 | EXTERNAL | | | | performed at [facility];[address] | mmol/L | LAB | | | | [address];[place] | | | | | | [address] | | | | + + + + + + | Cl | 114 (H)Comment: Testing | 99 - 109 mmol/L | EXTERNAL | | | | performed at [facility];[address] | | LAB | | | | [address];[place] | | | | | | [address] | | | | + + + + + + | CO2 | 31Comment: Testing | 23 - 32 mmol/L | EXTERNAL | | | | performed at [facility];[address] | | LAB | | | | [address];[place] | | | | | | [address] | | | | + + + + + + | Anion Gap | 9Comment: Testing | 5 - 20 mmol/L | EXTERNAL | | | | performed at [facility];[address] | | LAB | | | | [address];[place] | | | | | | [address] | | | | + + + + + + | Glucose, | 163 (H)Comment: Testing | 65 - 99 mg/dL | EXTERNAL | | | Fasting | performed at [facility];[address] | | LAB | | | | [address];[place] | | | | | | [address] | | | | + + + + + + | BUN | 20Comment: Testing | 8 - 25 mg/dL | EXTERNAL | | | | performed at [facility];[address] | | LAB | | | | [address];[place] | | | | | | [address] | | | | + + + + + + | Creatinine | 0.96Comment: Testing | 0.50 - 1.00 | EXTERNAL | | | | performed at [facility];[address] | mg/dL | LAB | | | | [address];[place] | | | | | | [address] | | | | + + + + + + | BUN/Creatin | 21Comment: Testing | | EXTERNAL | | | ine Ratio | performed at [facility];[address] | | LAB | | | | [address];[place] | | | | | | [address] | | | | + + + + + + | Calcium | 7.5 (L)Comment: Testing | 8.5 - 10.2 | EXTERNAL | | | | performed at [facility];888 | mg/dL | LAB | | | | [address];[place] | | | | | | [address] | | | | + + + [...] | | | | | | at [facility];[address] | | | | | | [address];[place] [address] | | | | + + + [...] | | | Fingerstick | performed at [facility] | | LAB | | | | [address];[place] | | | | | | [address] | | | | + + + [...] | | | Fingerstick | performed at [facility];[address] | | LAB | | | | [address];[place], [place] | | | | | | [address] | | | | + + + [...] | | | Fingerstick | performed at [facility];[address] | | LAB | | | | [address];[place] | | | | | | [address] | | | | + + + [...] | | | | | performed at [facility];[address] | | | | | | [address];[place], [place] | | | | | | [address] | | | | + + + [...] | | | Fingerstick | performed at [facility];[address] | | LAB | | | | [address];[place], [place] | | | | | | [address] | | | | + + + [...] At | + + + | MACKENZIE DINAE CHEST 1 VIEW 04/16/2014 6:18 AM HISTORY: [...] | | | | | performed at [facility];[address] | | | | | | [address];[place], [place] | | | | | | [address] | | | | + + + [...] EXTERNAL | | | | performed at [facility];[address] | | LAB | | | | [address];[place] | | | | | | [address] | | | | + + + + + + | Non- | 4.48Comment: Testing | 3.70 - 5.10 | EXTERNAL | | | Red Blood | performed at [facility];888 | M/uL | LAB | | | Cells | [address];[place] | | | | | Counted | [address] | | | | + + + + + + | Hemoglobin | 10.5 (L)Comment: Testing | 11.3 - 15.5 | EXTERNAL | | | | performed at [facility];888 | g/dL | LAB | | | | [address];[place] | | | | | | [address] | | | | + + + + + + | Hematocrit, | 36.0Comment: Testing | 34.0 - 46.0 % | EXTERNAL | | | POC | performed at [facility];[address] | | LAB | | | | [address];[place] | | | | | | [address] | | | | + + + + + + | MCV | 80.5Comment: Testing | 80.0 - 100.0 fl | EXTERNAL | | | | performed at [facility];[address] | | LAB | | | | [address];[place] | | | | | | [address] | | | | + + + + + + | MCH | 23.5 (L)Comment: Testing | 27.0 - 34.0 pg | EXTERNAL | | | | performed at [facility];[address] | | LAB | | | | [address];[place] | | | | | | [address] | | | | + + + + + + | MCHC | 29.1 (L)Comment: Testing | 32.0 - 35.5 | EXTERNAL | | | | performed at [facility];888 | g/dL | LAB | | | | [address];[place] | | | | | | [address] | | | | + + + + + + | RDW-CV | 61.3 (H)Comment: Testing | 37 - 53 fl | EXTERNAL | | | | performed at [facility];[address] | | LAB | | | | [address];[place] | | | | | | [address] | | | | + + + + + + | Platelet | 378Comment: Testing | 150 - 400 K/uL | EXTERNAL | | | Count | performed at [facility];[address] | | LAB | | | Plasma | [address];[place] | | | | | | [address] | | | | + + + + + + | MPV | 9.5Comment: Testing | fl | EXTERNAL | | | | performed at [facility];[address] | | LAB | | | | [address];[place] | | | | | | [address] | | | | + + + + + + | Differentia | MANUALComment: Testing | | EXTERNAL | | | l Type | performed at [facility];[address] | | LAB | | | | [address];[place] | | | | | | [address] | | | | + + + + + + | Nucleated | 2 (H)Comment: Testing | /100WBC | EXTERNAL | | | Red Blood | performed at [facility];[address] | | LAB | | | Cells | [address];[place] | | | | | | [address] | | | | + + + + + + | Segmented | 88Comment: Testing | % | EXTERNAL | | | Neutrophils | performed at [facility];[address] | | LAB | | | Manual | [address];[place] | | | | | | [address] | | | | + + + + + + | % | 1Comment: Testing | % | EXTERNAL | | | Myelocytes | performed at [facility];[address] | | LAB | | | | [address];[place] | | | | | | [address] | | | | + + + + + + | Lymphocytes | 6Comment: Testing | % | EXTERNAL | | | Manual | performed at [facility];[address] | | LAB | | | | [address];[place] | | | | | | [address] | | | | + + + + + + | Monocytes | 5Comment: Testing | % | EXTERNAL | | | Manual | performed at [facility];[address] | | LAB | | | | [address];[place] | | | | | | [address] | | | | + + + + + + | Absolute | 17.6 (H)Comment: Testing | 1.9 - 7.4 K/uL | EXTERNAL | | | Neutrophils | performed at [facility];[address] | | LAB | | | | [address];[place] | | | | | | [address] | | | | + + + + + + | Absolute | 0.2 (H)Comment: Testing | K/uL | EXTERNAL | | | Myelocytes | performed at [facility];[address] | | LAB | | | | [address];[place] | | | | | | [address] | | | | + + + + + + | Absolute | 1.2Comment: Testing | 1.0 - 3.9 K/uL | EXTERNAL | | | Lymphocytes | performed at [facility];[address] | | LAB | | | | [address];[place] | | | | | | [address] | | | | + + + + + + | Absolute | 1.0 (H)Comment: Testing | 0 - 0.8 K/uL | EXTERNAL | | | Monocytes | performed at [facility];[address] | | LAB | | | | [address];[place] | | | | | | [address] | | | | + + + + + + | RBC | 1+Comment: | | EXTERNAL | | | Morphology | HYPO2+ANISO1+TARGET1+POI | | LAB | | | | K1+GIANT | | | | | | PLATELETSTesting | | | | | | performed at [facility];[address] | | | | | | [address];[place] | | | | | | [address] | | | | | |1+ | | | | | |POIK | | | | | |1+ | | | | | |GIANT PLATELETS | | | | | |Testing performed at [facility];[address];[place] [address] | | | | | | | [...] EXTERNAL | | | | performed at [facility], [address] | | LAB | | | | [address], | | | | | | [place] [address] | | | | + + + [...] | | LAB | | | | [facility];[address];[place] [address] | | | | + + + [...] EXTERNAL | | | | performed at [facility], [address] | | LAB | | | | [address], | | | | | | [place] [address] | | | | + + + [...] | | | | | [place] [address] | | | | + + + + + + | K | 4.4Comment: Testing | 3.5 - 4.9 | EXTERNAL | | | | performed at [facility], [address] | mmol/L | LAB | | | | [address], | | | | | | [place] [address] | | | | + + + + + + | Cl | 106Comment: Testing | 99 - 109 mmol/L | EXTERNAL | | | | performed at [facility], [address] | | LAB | | | | [address], | | | | | | [place] [address] | | | | + + + + + + | CO2 | 32Comment: Testing | 23 - 32 mmol/L | EXTERNAL | | | | performed at [facility], [address] | | LAB | | | | [address], | | | | | | [place] [address] | | | | + + + + + + | Anion Gap | 12Comment: Testing | 5 - 20 mmol/L | EXTERNAL | | | | performed at [facility], [address] | | LAB | | | | [address], | | | | | | [place] [address] | | | | + + + + + + | Glucose, | 212 (H)Comment: Testing | 65 - 99 mg/dL | EXTERNAL | | | Fasting | performed at [facility], [address] | | LAB | | | | [address], | | | | | | [place] [address] | | | | + + + + + + | BUN | 20Comment: Testing | 8 - 25 mg/dL | EXTERNAL | | | | performed at [facility], [address] | | LAB | | | | [address], | | | | | | [place] [address] | | | | + + + + + + | Creatinine | 0.86Comment: Testing | 0.50 - 1.00 | EXTERNAL | | | | performed at [facility], [address] | mg/dL | LAB | | | | [address], | | | | | | [place] [address] | | | | + + + + + + | BUN/Creatin | 23Comment: Testing | | EXTERNAL | | | ine Ratio | performed at [facility], [address] | | LAB | | | | [address], | | | | | | [place] [address] | | | | + + + + + + | Calcium | 8.2 (L)Comment: Testing | 8.5 - 10.2 | EXTERNAL | | | | performed at [facility], [address] | mg/dL | LAB | | | | [address], | | | | | | [place] [address] | | | | + + + [...] [address], | | | | | | [place] [address] | | | | + + + [...] EXTERNAL | | | | performed at [facility] | mmol/L | LAB | | | | [address];[place], [place] | | | | | | [address] | | | | + + + [...] LAB | | | | performed at [facility] | | | | | | [address];[place], [place] | | | | | | [address] | | | | + + + [...] EXTERNAL | | | | performed at [facility] | mmol/L | LAB | | | | [address];[place], [place] | | | | | | [address] | | | | + + + [...] EXTERNAL | | | | performed at [facility];[address] | | LAB | | | | [address];[place], [place] | | | | | | [address] | | | | + + + [...] + + | Historically converted procedure from [facility] environment | EXTERNAL LAB | + + [...] EXTERNAL | | | | performed at [facility] | mmol/L | LAB | | | | [address];[place] | | | | | | [address] | | | | + + + [...] EXTERNAL | | | | performed at [facility] | | LAB | | | | [facility];[place], [place] | | | | | | [address] | | | | + + + [...] | | | | | | ACUTE OH Testing | | | | | | performed at [facility];[address] | | | | | | [address];[place], [place] | | | | | | [address] | | | | + + + [...] | | | | | performed at [facility] | | | | | | [facility];[place], [place] | | | | | | [address] | | | | + + + [...] EXTERNAL | | | | performed at [facility];[address] | | LAB | | | | [address];[place] | | | | | | [address] | | | | + + + + + + | Non- | 4.49Comment: Testing | 3.70 - 5.10 | EXTERNAL | | | Red Blood | performed at [facility] | M/uL | LAB | | | Cells | [address];[place] | | | | | Counted | [address] | | | | + + + + + + | Hemoglobin | 10.6 (L)Comment: Testing | 11.3 - 15.5 | EXTERNAL | | | | performed at [facility] | g/dL | LAB | | | | [address];[place] | | | | | | [address] | | | | + + + + + + | Hematocrit, | 36.1Comment: Testing | 34.0 - 46.0 % | EXTERNAL | | | POC | performed at [facility];[address] | | LAB | | | | [address];[place] | | | | | | [address] | | | | + + + + + + | MCV | 80.2Comment: Testing | 80.0 - 100.0 fl | EXTERNAL | | | | performed at [facility] | | LAB | | | | [address];[place] | | | | | | [address] | | | | + + + + + + | MCH | 23.5 (L)Comment: Testing | 27.0 - 34.0 pg | EXTERNAL | | | | performed at [facility] | | LAB | | | | [address];[place] | | | | | | [address] | | | | + + + + + + | MCHC | 29.3 (L)Comment: Testing | 32.0 - 35.5 | EXTERNAL | | | | performed at [facility] | g/dL | LAB | | | | [address];[place] | | | | | | [address] | | | | + + + + + + | RDW-CV | 60.8 (H)Comment: Testing | 37 - 53 fl | EXTERNAL | | | | performed at [facility];[address] | | LAB | | | | [address];[place] | | | | | | [address] | | | | + + + + + + | Platelet | 382Comment: Testing | 150 - 400 K/uL | EXTERNAL | | | Count | performed at [facility] | | LAB | | | Plasma | [address];[place] | | | | | | [address] | | | | + + + + + + | MPV | 9.1Comment: Testing | fl | EXTERNAL | | | | performed at [facility] | | LAB | | | | [address];[place] | | | | | | [address] | | | | + + + + + + | Differentia | MANUALComment: Testing | | EXTERNAL | | | l Type | performed at [facility] | | LAB | | | | [address];[place] | | | | | | [address] | | | | + + + + + + | Nucleated | 2 (H)Comment: Testing | /100WBC | EXTERNAL | | | Red Blood | performed at [facility];888 | | LAB | | | Cells | [address];[place] | | | | | | [address] | | | | + + + + + + | Segmented | 90Comment: Testing | % | EXTERNAL | | | Neutrophils | performed at [facility];[address] | | LAB | | | Manual | [address];[place] | | | | | | [address] | | | | + + + + + + | % Bands | 2Comment: Testing | % | EXTERNAL | | | | performed at [facility];[address] | | LAB | | | | [address];[place] | | | | | | [address] | | | | + + + + + + | Lymphocytes | 8Comment: Testing | % | EXTERNAL | | | Manual | performed at [facility];[address] | | LAB | | | | [address];[place] | | | | | | [address] | | | | + + + + + + | Absolute | 20.5 (H)Comment: Testing | 1.9 - 7.4 K/uL | EXTERNAL | | | Neutrophils | performed at [facility];888 | | LAB | | | | [address];[place] | | | | | | [address] | | | | + + + + + + | Bands | 0.5 (H)Comment: Testing | 0 - 0.2 K/uL | EXTERNAL | | | Manual | performed at [facility];888 | | LAB | | | | [address];[place] | | | | | | [address] | | | | + + + + + + | Absolute | 1.8Comment: Testing | 1.0 - 3.9 K/uL | EXTERNAL | | | Lymphocytes | performed at [facility];[address] | | LAB | | | | [address];[place] | | | | | | [address] | | | | + + + + + + | Platelet | ADEQUATEComment: Testing | | EXTERNAL | | | Estimate | performed at [facility];888 | | LAB | | | | [facility] | | | | | | [address] | | | | + + + + + + | RBC | 2+Comment: | | EXTERNAL | | | Morphology | ANISO1+HYPO1+ELLIPTO1+PO | | LAB | | | | IK2+TARGETNORMAL PLT | | | | | | MORPHTesting performed | | | | | | at [facility];[address];[place] [address] | | | | | |ELLIPTO | | | | | |1+ | | | | | |POIK | | | | | |2+ | | | | | |TARGET | | | | | |NORMAL PLT MORPH | | | | | |Testing performed at [facility];[address] [facility];[place] [address] | | | | | | | [...] EXTERNAL | | | | performed at [facility];888 | | LAB | | | | [address];[place] | | | | | | [address] | | | | + + + [...] | | LAB | | | | [facility];[address] [place] [address] | | | | | | [facility];[place] [address] | | | | + + + [...] EXTERNAL | | | | performed at [facility];8 | | LAB | | | | [address];[place] | | | | | | [address] | | | | + + + [...] EXTERNAL | | | | performed at [facility];[address] | | LAB | | | | [address];[place], [place] | | | | | | [address] | | | | + + + [...] | | | | | performed at [facility];88 | | | | | | [facility];[place], [place] | | | | | | [address] | | | | + + + [...] EXTERNAL | | | | performed at [facility];888 | mmol/L | LAB | | | | [address];[place] | | | | | | [address] | | | | + + + + + + | K | 3.7Comment: Testing | 3.5 - 4.9 | EXTERNAL | | | | performed at [facility];888 | mmol/L | LAB | | | | [address];[place] | | | | | | [address] | | | | + + + + + + | Cl | 109Comment: Testing | 99 - 109 mmol/L | EXTERNAL | | | | performed at [facility];[address] | | LAB | | | | [address];[place] | | | | | | [address] | | | | + + + + + + | CO2 | 28Comment: Testing | 23 - 32 mmol/L | EXTERNAL | | | | performed at [facility];[address] | | LAB | | | | [address];[place] | | | | | | [address] | | | | + + + + + + | Anion Gap | 14Comment: Testing | 5 - 20 mmol/L | EXTERNAL | | | | performed at [facility];[address] | | LAB | | | | [address];[place] | | | | | | [address] | | | | + + + + + + | Glucose, | 99Comment: Testing | 65 - 99 mg/dL | EXTERNAL | | | Fasting | performed at [facility];[address] | | LAB | | | | [address];[place] | | | | | | [address] | | | | + + + + + + | BUN | 22Comment: Testing | 8 - 25 mg/dL | EXTERNAL | | | | performed at [facility];[address] | | LAB | | | | [address];[place] | | | | | | [address] | | | | + + + + + + | Creatinine | 0.98Comment: Testing | 0.50 - 1.00 | EXTERNAL | | | | performed at [facility];888 | mg/dL | LAB | | | | [address];[place] | | | | | | [address] | | | | + + + + + + | BUN/Creatin | 23Comment: Testing | | EXTERNAL | | | ine Ratio | performed at [facility];888 | | LAB | | | | [address];[place] | | | | | | [address] | | | | + + + + + + | Calcium | 8.4 (L)Comment: Testing | 8.5 - 10.2 | EXTERNAL | | | | performed at [facility];888 | mg/dL | LAB | | | | [address];[place] | | | | | | [address] | | | | + + + [...] | | | | | | at [facility];[address];[place] [address] | | | | + + + [...] | | | | | | [place] [id number] AT 1844, | | | | | | VAPTesting performed at | | | | | | [facility];[address];[place] [address] | | | | + + + [...] EXTERNAL | | | | performed at [facility];888 | mmol/L | LAB | | | | [address];[place] | | | | | | [address] | | | | + + + [...] EXTERNAL | | | | performed at [facility];[address] | | LAB | | | | [address];[place], [place] | | | | | | [address] | | | | + + + [...] EXTERNAL | | | | performed at [facility] | | LAB | | | | [address];[place], [place] | | | | | | [address] | | | | + + + [...] | EXTERNAL LAB | | performed at [facility];[address] [place] [address];[place] [address] 027 NAP1 BI | | | 027 NAP1 BI PRESUMPTIVE NEGATIVE | | | Detection of 027 NAP1 BI strains of C. difficile is presumptive and | | | for epidemiological purposes and not intended to guide or monitor | | | treatment for C. difficile infections. Testing performed at [facility];[address] | | | [facility];[place] [address] | | + + + + +---------+ [...] | | | | | performed at [facility];[address] | | | | | | [address];[place], [place] | | | | | | [address] | | | | + + + [...] EXTERNAL | | | | performed at [facility], [address] | | LAB | | | | [address], | | | | | | [place] [address] | | | | + + + + + + | Non- | 4.43Comment: Testing | 3.70 - 5.10 | EXTERNAL | | | Red Blood | performed at [facility], [address] | M/uL | LAB | | | Cells | [address], | | | | | Counted | [place] [address] | | | | + + + + + + | Hemoglobin | 10.8 (L)Comment: Testing | 11.3 - 15.5 | EXTERNAL | | | | performed at [facility], [address] | g/dL | LAB | | | | [address], | | | | | | [place] [address] | | | | + + + + + + | Hematocrit, | 36.2Comment: Testing | 34.0 - 46.0 % | EXTERNAL | | | POC | performed at [facility], [address] | | LAB | | | | [address], | | | | | | [place] [address] | | | | + + + + + + | MCV | 81.7Comment: Testing | 80.0 - 100.0 fl | EXTERNAL | | | | performed at [facility], [address] | | LAB | | | | [address], | | | | | | [place] [address] | | | | + + + + + + | MCH | 24.5 (L)Comment: Testing | 27.0 - 34.0 pg | EXTERNAL | | | | performed at [facility], [address] | | LAB | | | | [address], | | | | | | [place] [address] | | | | + + + + + + | MCHC | 29.9 (L)Comment: Testing | 32.0 - 35.5 | EXTERNAL | | | | performed at [facility], [address] | g/dL | LAB | | | | [address], | | | | | | [place] [address] | | | | + + + + + + | RDW-CV | 63.0 (H)Comment: Testing | 37 - 53 fl | EXTERNAL | | | | performed at [facility], [address] | | LAB | | | | [address], | | | | | | [place], [place] [address] | | | | + + + + + + | Platelet | 325Comment: Testing | 150 - 400 K/uL | EXTERNAL | | | Count | performed at [facility], [address] | | LAB | | | Plasma | [address], | | | | | | [place], [place] [address] | | | | + + + + + + | MPV | 9.5Comment: Testing | fl | EXTERNAL | | | | performed at [facility], [address] | | LAB | | | | [address], | | | | | | [place], [place] [address] | | | | + + + + + + | Differentia | MANUALComment: Testing | | EXTERNAL | | | l Type | performed at [facility], [address] | | LAB | | | | [address], | | | | | | [place] [address] | | | | + + + + + + | Segmented | 86Comment: Testing | % | EXTERNAL | | | Neutrophils | performed at [facility], [address] | | LAB | | | Manual | [address], | | | | | | [place] [address] | | | | + + + + + + | % Bands | 2Comment: Testing | % | EXTERNAL | | | | performed at [facility], [address] | | LAB | | | | [address], | | | | | | [place] [address] | | | | + + + + + + | Lymphocytes | 5Comment: Testing | % | EXTERNAL | | | Manual | performed at [facility], [address] | | LAB | | | | [address], | | | | | | [place] [address] | | | | + + + + + + | Monocytes | 7Comment: Testing | % | EXTERNAL | | | Manual | performed at [facility], [address] | | LAB | | | | [address], | | | | | | [place] [address] | | | | + + + + + + | Absolute | 17.3 (H)Comment: Testing | 1.9 - 7.4 K/uL | EXTERNAL | | | Neutrophils | performed at [facility], [address] | | LAB | | | | [address], | | | | | | [place] [address] | | | | + + + + + + | Bands | 0.4 (H)Comment: Testing | 0 - 0.2 K/uL | EXTERNAL | | | Manual | performed at [facility], [address] | | LAB | | | | [address], | | | | | | [place] [address] | | | | + + + + + + | Absolute | 1.0Comment: Testing | 1.0 - 3.9 K/uL | EXTERNAL | | | Lymphocytes | performed at [facility], [address] | | LAB | | | | [address], | | | | | | [place] [address] | | | | + + + + + + | Absolute | 1.4 (H)Comment: Testing | 0 - 0.8 K/uL | EXTERNAL | | | Monocytes | performed at [facility], [address] | | LAB | | | | [address], | | | | | | [place] [address] | | | | + + + + + + | RBC | NORMAL RBC MORPHComment: | | EXTERNAL | | | Morphology | NORMAL PLT MORPHTesting | | LAB | | | | performed at [facility], [address] | | | | | | [address], | | | | | | [place] [address] | | | | + + + [...] EXTERNAL | | | | performed at [facility];[address] | | LAB | | | | [address];[place] | | | | | | [address] | | | | + + + [...] EXTERNAL | | | | performed at [facility];[address] | | LAB | | | | [address] [facility];[place], [place] | | | | | | [address] | | | | + + + [...] EXTERNAL | | | | performed at [facility];888 | mmol/L | LAB | | | | [address];[place] | | | | | | [address] | | | | + + + + + + | K | 3.6Comment: Testing | 3.5 - 4.9 | EXTERNAL | | | | performed at [facility];888 | mmol/L | LAB | | | | [address];[place] | | | | | | [address] | | | | + + + + + + | Cl | 109Comment: Testing | 99 - 109 mmol/L | EXTERNAL | | | | performed at [facility];[address] | | LAB | | | | [address];[place] | | | | | | [address] | | | | + + + + + + | CO2 | 31Comment: Testing | 23 - 32 mmol/L | EXTERNAL | | | | performed at [facility];[address] | | LAB | | | | [address];[place] | | | | | | [address] | | | | + + + + + + | Anion Gap | 11Comment: Testing | 5 - 20 mmol/L | EXTERNAL | | | | performed at [facility];[address] | | LAB | | | | [address];[place] | | | | | | [address] | | | | + + + + + + | Glucose, | 85Comment: Testing | 65 - 99 mg/dL | EXTERNAL | | | Fasting | performed at [facility];[address] | | LAB | | | | [address];[place] | | | | | | [address] | | | | + + + + + + | BUN | 18Comment: Testing | 8 - 25 mg/dL | EXTERNAL | | | | performed at [facility];[address] | | LAB | | | | [address];[place] | | | | | | [address] | | | | + + + + + + | Creatinine | 0.89Comment: Testing | 0.50 - 1.00 | EXTERNAL | | | | performed at [facility];888 | mg/dL | LAB | | | | [address];[place] | | | | | | [address] | | | | + + + + + + | BUN/Creatin | 20Comment: Testing | | EXTERNAL | | | ine Ratio | performed at [facility];[address] | | LAB | | | | [address];[place] | | | | | | [address] | | | | + + + + + + | Calcium | 8.0 (L)Comment: Testing | 8.5 - 10.2 | EXTERNAL | | | | performed at [facility];888 | mg/dL | LAB | | | | [address];[place], [place] | | | | | | [address] | | | | + + + [...] | | | | | | at [facility];[address];[place] [address] | | | | + + + [...] EXTERNAL | | | | performed at [facility];888 | mmol/L | LAB | | | | [address];[place], [place] | | | | | | [address] | | | | + + + [...] EXTERNAL | | | | performed at [facility];[address] | | LAB | | | | [address];[place], [place] | | | | | | [address] | | | | + + + [...] EXTERNAL | | | | performed at [facility] | | LAB | | | | [address];[place], [place] | | | | | | [address] | | | | + + + [...] | EXTERNAL LAB | | performed at [facility];[address] [facility];[place] [address] Pneumocystis Smear, | | | DFA ACCESSION NO. | | | [id number] SPECIMEN SOURCE SPUTUM | | | RESULT NO PNEUMOCYSTIS SEEN | | | BY DIRECT | | | FLUORESCENT ANTIBODY STAIN Testing performed at [facility] | | | [place], [address] [facility] [address] PNEMOCYSTIS FA,STATUS | | | REPORT STATUS FINAL 04/15/2014 | | | Testing performed at [facility], [address] | | | [place] [address] | | + + + + +---------+ [...] LAB | | | | performed at [facility];[address] | | | | | | [address];[place], [place] | | | | | | [address] | | | | + + + [...] EXTERNAL | | | | performed at [facility] | | LAB | | | | [address] [facility];[place], [place] | | | | | | [address] | | | | + + + [...] LAB | | | | performed at [facility];[address] | | | | | | [address];[place] | | | | | | [address] | | | | + + + [...] | | | | | performed at [facility];[address] | | | | | | [facility];[place], [place] | | | | | | [address] | | | | + + + [...] EXTERNAL | | | | performed at [facility];[address] | | LAB | | | | [address];[place] | | | | | | [address] | | | | + + + + + + | Non- | 4.14Comment: Testing | 3.70 - 5.10 | EXTERNAL | | | Red Blood | performed at [facility];888 | M/uL | LAB | | | Cells | [address];[place] | | | | | Counted | [address] | | | | + + + + + + | Hemoglobin | 10.0 (L)Comment: Testing | 11.3 - 15.5 | EXTERNAL | | | | performed at [facility];888 | g/dL | LAB | | | | [address];[place] | | | | | | [address] | | | | + + + + + + | Hematocrit, | 32.7 (L)Comment: Testing | 34.0 - 46.0 % | EXTERNAL | | | POC | performed at [facility];888 | | LAB | | | | [address];[place] | | | | | | [address] | | | | + + + + + + | MCV | 79.1 (L)Comment: Testing | 80.0 - 100.0 fl | EXTERNAL | | | | performed at [facility];[address] | | LAB | | | | [address];[place] | | | | | | [address] | | | | + + + + + + | MCH | 24.3 (L)Comment: Testing | 27.0 - 34.0 pg | EXTERNAL | | | | performed at [facility];[address] | | LAB | | | | [address];[place] | | | | | | [address] | | | | + + + + + + | MCHC | 30.7 (L)Comment: Testing | 32.0 - 35.5 | EXTERNAL | | | | performed at [facility];888 | g/dL | LAB | | | | [address];[place] | | | | | | [address] | | | | + + + + + + | RDW-CV | 60.8 (H)Comment: Testing | 37 - 53 fl | EXTERNAL | | | | performed at [facility];[address] | | LAB | | | | [address];[place] | | | | | | [address] | | | | + + + + + + | Platelet | 281Comment: Testing | 150 - 400 K/uL | EXTERNAL | | | Count | performed at [facility];[address] | | LAB | | | Plasma | [address];[place] | | | | | | [address] | | | | + + + + + + | MPV | 9.1Comment: Testing | fl | EXTERNAL | | | | performed at [facility];[address] | | LAB | | | | [address];[place] | | | | | | [address] | | | | + + + + + + | Differentia | MANUALComment: Testing | | EXTERNAL | | | l Type | performed at [facility];[address] | | LAB | | | | [address];[place] | | | | | | [address] | | | | + + + + + + | Nucleated | 1 (H)Comment: Testing | /100WBC | EXTERNAL | | | Red Blood | performed at [facility];[address] | | LAB | | | Cells | [address];[place] | | | | | | [address] | | | | + + + + + + | Segmented | 91Comment: Testing | % | EXTERNAL | | | Neutrophils | performed at [facility];888 | | LAB | | | Manual | [address];[place] | | | | | | [address] | | | | + + + + + + | Lymphocytes | 6Comment: Testing | % | EXTERNAL | | | Manual | performed at [facility];[address] | | LAB | | | | [address];[place] | | | | | | [address] | | | | + + + + + + | Monocytes | 3Comment: Testing | % | EXTERNAL | | | Manual | performed at [facility];[address] | | LAB | | | | [address];[place] | | | | | | [address] | | | | + + + + + + | Absolute | 19.1 (H)Comment: Testing | 1.9 - 7.4 K/uL | EXTERNAL | | | Neutrophils | performed at [facility];[address] | | LAB | | | | [address];[place] | | | | | | [address] | | | | + + + + + + | Absolute | 1.3Comment: Testing | 1.0 - 3.9 K/uL | EXTERNAL | | | Lymphocytes | performed at [facility];888 | | LAB | | | | [address];[place] | | | | | | [address] | | | | + + + + + + | Absolute | 0.6Comment: Testing | 0 - 0.8 K/uL | EXTERNAL | | | Monocytes | performed at [facility];[address] | | LAB | | | | [address];[place] | | | | | | [address] | | | | + + + + + + | Platelet | ADEQUATEComment: Testing | | EXTERNAL | | | Estimate | performed at [facility];[address] | | LAB | | | | [address];[place] | | | | | | [address] | | | | + + + + + + | RBC | 3+Comment: | | EXTERNAL | | | Morphology | ANISO1+MACRO1+MICRO1+HYP | | LAB | | | | O1+POLY2+TARGET1+ACANTHO | | | | | | Testing performed at | | | | | | [facility];[address];[place] [address] | | | | | |MICRO | | | | | |1+ | | | | | |HYPO | | | | | |1+ | | | | | |POLY | | | | | |2+ | | | | | |TARGET | | | | | |1+ | | | | | |ACANTHO | | | | | |Testing performed at [facility];[address] [place] [address];[place] [address] | | | | | | | [...] EXTERNAL | | | | performed at [facility] | | LAB | | | | [address];[place], [place] | | | | | | [address] | | | | + + + [...] | | | | | | at [facility];[address] [place] [address] | | | | | | [facility];[place] [address] | | | | + + + [...] EXTERNAL | | | | performed at [facility];888 | mmol/L | LAB | | | | [address];[place] | | | | | | [address] | | | | + + + + + + | K | 5.4 (H)Comment: SLT | 3.5 - 4.9 | EXTERNAL | | | | HEMOLYSISTesting | mmol/L | LAB | | | | performed at [facility] | | | | | | [address];[place] | | | | | | [address] | | | | + + + + + + | Cl | 107Comment: Testing | 99 - 109 mmol/L | EXTERNAL | | | | performed at [facility];[address] | | LAB | | | | [address];[place] | | | | | | [address] | | | | + + + + + + | CO2 | 24Comment: Testing | 23 - 32 mmol/L | EXTERNAL | | | | performed at [facility];[address] | | LAB | | | | [address];[place] | | | | | | [address] | | | | + + + + + + | Anion Gap | 15Comment: Testing | 5 - 20 mmol/L | EXTERNAL | | | | performed at [facility];[address] | | LAB | | | | [address];[place] | | | | | | [address] | | | | + + + + + + | Glucose, | 94Comment: Testing | 65 - 99 mg/dL | EXTERNAL | | | Fasting | performed at [facility];[address] | | LAB | | | | [address];[place] | | | | | | [address] | | | | + + + + + + | BUN | 14Comment: Testing | 8 - 25 mg/dL | EXTERNAL | | | | performed at [facility];[address] | | LAB | | | | [address];[place] | | | | | | [address] | | | | + + + + + + | Creatinine | 0.72Comment: Testing | 0.50 - 1.00 | EXTERNAL | | | | performed at [facility];888 | mg/dL | LAB | | | | [address];[place] | | | | | | [address] | | | | + + + + + + | BUN/Creatin | 19Comment: Testing | | EXTERNAL | | | ine Ratio | performed at [facility];[address] | | LAB | | | | [address];[place] | | | | | | [address] | | | | + + + + + + | Calcium | 7.3 (L)Comment: Testing | 8.5 - 10.2 | EXTERNAL | | | | performed at [facility];888 | mg/dL | LAB | | | | [address];[place] | | | | | | [address] | | | | + + + [...] | | | | | | at [facility];[address] | | | | | | [address];[place] [address] | | | | + + + [...] HAND | | | Testing performed at [facility];[address] | | | [facility];[place] [address] CULTURE | | | NO GROWTH | | | Testing performed at [facility], [address] [facility], [place], [place] | | | [address] | | + + + + +---------+ [...] at | | | | | | [facility];[address] [place] [address] | | | | | | [facility];[place] [address] | | | | + + + [...] | | | | | performed at [facility] | | | | | | [address];[place], [place] | | | | | | [address] | | | | + + + [...] EXTERNAL | | | | performed at [facility];[address] | | LAB | | | | [address];[place] | | | | | | [address] | | | | + + + + + + | Non- | 4.24Comment: Testing | 3.70 - 5.10 | EXTERNAL | | | Red Blood | performed at [facility];[address] | M/uL | LAB | | | Cells | [address];[place] | | | | | Counted | [id number] | | | | + + + + + + | Hemoglobin | 10.3 (L)Comment: Testing | 11.3 - 15.5 | EXTERNAL | | | | performed at [facility];888 | g/dL | LAB | | | | [address];[place] | | | | | | [address] | | | | + + + + + + | Hematocrit, | 33.3 (L)Comment: Testing | 34.0 - 46.0 % | EXTERNAL | | | POC | [facility] [facility] | | [facility] | | | | [address];[place] | | | | | | [address] | | | | + + + + + + | MCV | 78.6 (L)Comment: Testing | 80.0 - 100.0 fl | EXTERNAL | | | | performed at [facility] | | LAB | | | | [address];[place] | | | | | | [address] | | | | + + + + + + | MCH | 24.2 (L)Comment: Testing | 27.0 - 34.0 pg | EXTERNAL | | | | performed at [facility] | | LAB | | | | [address];[place] | | | | | | [address] | | | | + + + + + + | MCHC | 30.8 (L)Comment: Testing | 32.0 - 35.5 | EXTERNAL | | | | performed at [facility]888 | g/dL | LAB | | | | [address];[place] | | | | | | [address] | | | | + + + + + + | RDW-CV | 61.7 (H)Comment: Testing | 37 - 53 fl | EXTERNAL | | | | performed at [facility] | | LAB | | | | [address];[place] | | | | | | [address] | | | | + + + + + + | Platelet | 283Comment: Testing | 150 - 400 K/uL | EXTERNAL | | | Count | performed at [facility] | | LAB | | | Plasma | [address];[place] | | | | | | [address] | | | | + + + + + + | MPV | 9.0Comment: Testing | fl | EXTERNAL | | | | performed at [facility] | | LAB | | | | [address];[place] | | | | | | [address] | | | | + + + + + + | Differentia | MANUALComment: Testing | | EXTERNAL | | | l Type | performed at [facility] | | LAB | | | | [address];[place] | | | | | | [address] | | | | + + + + + + | Nucleated | 3 (H)Comment: Testing | /100WBC | EXTERNAL | | | Red Blood | performed at [facility] | | LAB | | | Cells | [address];[place] | | | | | | [address] | | | | + + + + + + | Segmented | 91Comment: Testing | % | EXTERNAL | | | Neutrophils | performed at [facility] | | LAB | | | Manual | [address];[place] | | | | | | [address] | | | | + + + + + + | % Bands | 2Comment: Testing | % | EXTERNAL | | | | performed at [facility] | | LAB | | | | [address];[place] | | | | | | [address] | | | | + + + + + + | Lymphocytes | 2Comment: Testing | % | EXTERNAL | | | Manual | performed at [facility] | | LAB | | | | [address];[place] | | | | | | [address] | | | | + + + + + + | % Atypical | 2Comment: Testing | % | EXTERNAL | | | Lymphocytes | performed at [facility] | | LAB | | | | [address];[place] | | | | | | [address] | | | | + + + + + + | Monocytes | 3Comment: Testing | % | EXTERNAL | | | Manual | performed at [facility] | | LAB | | | | [address];[place] | | | | | | [address] | | | | + + + + + + | Absolute | 16.9 (H)Comment: Testing | 1.9 - 7.4 K/uL | EXTERNAL | | | Neutrophils | performed at [facility] | | LAB | | | | [address];[place] | | | | | | [address] | | | | + + + + + + | Bands | 0.4 (H)Comment: Testing | 0 - 0.2 K/uL | EXTERNAL | | | Manual | performed at [facility] | | LAB | | | | [address];[place] | | | | | | [address] | | | | + + + + + + | Absolute | 0.4 (L)Comment: Testing | 1.0 - 3.9 K/uL | EXTERNAL | | | Lymphocytes | performed at [facility] | | LAB | | | | [address];[place] | | | | | | [address] | | | | + + + + + + | Absolute | 0.4 (H)Comment: Testing | K/uL | EXTERNAL | | | Atypical | performed at [facility] | | LAB | | | Lymphocytes | [address];[place] | | | | | | [address] | | | | + + + + + + | Absolute | 0.6Comment: Testing | 0 - 0.8 K/uL | EXTERNAL | | | Monocytes | performed at [facility] | | LAB | | | | [address];[place] | | | | | | [address] | | | | + + + + + + | Platelet | ADEQUATEComment: Testing | | EXTERNAL | | | Estimate | performed at [facility]888 | | LAB | | | | [address];[place] | | | | | | [address] | | | | + + + + + + | RBC | 1+Comment: | | EXTERNAL | | | Morphology | ANISO1+POIK2+HYPO1+TARGE | | LAB | | | | TNORMAL PLT MORPHTesting | | | | | | performed at [facility] | | | | | | [facility];[place], [place] | | | | | | [address] | | | | | |HYPO | | | | | |1+ | | | | | |TARGET | | | | | |NORMAL PLT MORPH | | | | | |Testing performed at [facility] [facility];[place] [address] | | | | | | | [...] EXTERNAL | | | | performed at [facility] | mmol/L | LAB | | | | [address];[place] | | | | | | [address] | | | | + + + + + + | K | 4.1Comment: SPECIMEN | 3.5 - 4.9 | EXTERNAL | | | | SLIGHTLY | mmol/L | LAB | | | | HEMOLYZEDTesting | | | | | | performed at [facility] | | | | | | [address];[place] | | | | | | [address] | | | | + + + + + + | Cl | 105Comment: Testing | 99 - 109 mmol/L | EXTERNAL | | | | performed at [facility] | | LAB | | | | [address];[place] | | | | | | [address] | | | | + + + + + + | CO2 | 24Comment: Testing | 23 - 32 mmol/L | EXTERNAL | | | | performed at [facility] | | LAB | | | | [address];[place] | | | | | | [address] | | | | + + + + + + | Anion Gap | 15Comment: Testing | 5 - 20 mmol/L | EXTERNAL | | | | performed at [facility] | | LAB | | | | [address];[place] | | | | | | [address] | | | | + + + + + + | Glucose, | 137 (H)Comment: Testing | 65 - 99 mg/dL | EXTERNAL | | | Fasting | performed at [facility] | | LAB | | | | [address];[place] | | | | | | [address] | | | | + + + + + + | BUN | 15Comment: Testing | 8 - 25 mg/dL | EXTERNAL | | | | performed at [facility] | | LAB | | | | [address];[place] | | | | | | [address] | | | | + + + + + + | Creatinine | 0.96Comment: Testing | 0.50 - 1.00 | EXTERNAL | | | | performed at [facility]888 | mg/dL | LAB | | | | [address];[place] | | | | | | [address] | | | | + + + + + + | BUN/Creatin | 15Comment: Testing | | EXTERNAL | | | ine Ratio | performed at [facility] | | LAB | | | | [address];[place] | | | | | | [address] | | | | + + + + + + | Calcium | 7.5 (L)Comment: Testing | 8.5 - 10.2 | EXTERNAL | | | | performed at [facility]888 | mg/dL | LAB | | | | [address];[place] | | | | | | [address] | | | | + + + + + + | Protein, | 5.2 (L)Comment: Testing | 6.3 - 8.2 g/dL | EXTERNAL | | | Total | performed at [facility] | | LAB | | | | [address];[place] | | | | | | [address] | | | | + + + + + + | Albumin | 1.6 (L)Comment: Testing | 3.6 - 5.0 g/dL | EXTERNAL | | | | performed at [facility] | | LAB | | | | [address];[place] | | | | | | [address] | | | | + + + + + + | Globulin | 3.7Comment: Testing | 1.3 - 4.9 g/dL | EXTERNAL | | | | performed at [facility] | | LAB | | | | [address];[place] | | | | | | [address] | | | | + + + + + + | A/G Ratio | 0.4 (L)Comment: Testing | 1.0 - 2.4 | EXTERNAL | | | | performed at [facility] | | LAB | | | | [address];[place] | | | | | | [address] | | | | + + + + + + | Bilirubin | 0.3Comment: Testing | 0.1 - 1.5 mg/dL | EXTERNAL | | | Total | performed at [facility] | | LAB | | | | [address];[place] | | | | | | [address] | | | | + + + + + + | ALP, | 86Comment: Testing | 35 - 115 U/L | EXTERNAL | | | External | performed at [facility] | | LAB | | | | [address];[place] | | | | | | [address] | | | | + + + + + + | AST | 55 (H)Comment: SPECIMEN | 10 - 45 U/L | EXTERNAL | | | | SLIGHTLY | | LAB | | | | HEMOLYZEDTesting | | | | | | performed at [facility] | | | | | | [address];[place] | | | | | | [address] | | | | + + + + + + | ALT | 18Comment: Testing | 10 - 65 U/L | EXTERNAL | | | | performed at [facility] | | LAB | | | | [address];[place] | | | | | | [address] | | | | + + + [...] | | | | | | at [facility];[address] [place] [address] | | | | | | [facility];[place] [address] | | | | + + + [...] RHAND | | | Testing performed at [facility]888 | | | [address] Zam[address];[place] [address] CULTURE | | | NO GROWTH | | | Testing performed at [facility], [address], [place] | | | [address] | | + + + + +---------+ [...] Conversion - 11/24/2018 6:38 AM PDT MACKENZIE [id number] yearsXR CHEST 1 | | VIEW04/12/2014 5:13 [...] EXTERNAL LAB | | Testing performed at [facility];[address] [place] [address];[place] [address] MRSA PCR | | | NEGATIVE Testing performed at | | | [facility];[address] [place] [address];[place] [address] | | + + + + +---------+ [...] | | | | | [place] [address] | | | | + + + + + + | Clarity, | CLEARComment: Testing | | EXTERNAL | | | Urine | performed at [facility], [address] | | LAB | | | | [address], | | | | | | [place] [address] | | | | + + + + + + | Specific | 1.021Comment: Testing | 1.002 - 1.030 | EXTERNAL | | | [place], | performed at [facility], [address] | | LAB | | | Urine | [address], | | | | | | [place] [address] | | | | + + + + + + | Leukocyte | NEGATIVEComment: Testing | | EXTERNAL | | | Esterase, | performed at [facility], [address] | | LAB | | | Urine | [address], | | | | | | [place] [address] | | | | + + + + + + | Nitrite, | NEGATIVEComment: Testing | | EXTERNAL | | | Urine | performed at [facility], [address] | | LAB | | | | [address], | | | | | | [place] [address] | | | | + + + + + + | Urobilinoge | 0.2Comment: Testing | mg/dL | EXTERNAL | | | n, Urine | performed at [facility], [address] | | LAB | | | | [address], | | | | | | [place] [address] | | | | + + + + + + | Protein, | NEGATIVEComment: Testing | mg/dL | EXTERNAL | | | Urine | performed at [facility], [address] | | LAB | | | | [address], | | | | | | [place] [address] | | | | + + + + + + | pH, Urine | 6.0Comment: Testing | 5.0 - 8.0 | EXTERNAL | | | | performed at [facility], [address] | | LAB | | | | [address], | | | | | | [place] [address] | | | | + + + + + + | Blood, | NEGATIVEComment: Testing | | EXTERNAL | | | Urine | performed at [facility], [address] | | LAB | | | | [address], | | | | | | [place] [address] | | | | + + + + + + | Ketones | NEGATIVEComment: Testing | mg/dL | EXTERNAL | | | | performed at [facility], [address] | | LAB | | | | [address], | | | | | | [place] [address] | | | | + + + + + + | Bilirubin, | NEGATIVEComment: Testing | | EXTERNAL | | | Urine | performed at [facility], [address] | | LAB | | | | [address], | | | | | | [place] [address] | | | | + + + + + + | Glucose, | NEGATIVEComment: Testing | mg/dL | EXTERNAL | | | Urine | performed at [facility], [address] | | LAB | | | | [address], | | | | | | [place] [address] | | | | + + + [...] ALBICANSAbnormal | | | Testing performed at [facility], [address] [place], [place] | | | [address] | | + + + + +---------+ [...]
--- OUTSIDE RECORDS SUMMARY | ~2019-11-05 | XMS | Encounter Summary ---
Demographics + + + | Address | [address] | | | [place] [address] | + + + | Home Phone | | + + + | Preferred Language | Unknown | + + + | Marital Status | | + + + | Yazdanism Affiliation | NRP | + + + | Race | White | + + + | Ethnic Group | Not or | + + + Author + + + | Author | [facility] | + + + | Organization | [facility] | + + + | Address | Unknown | + + + | Phone | Unavailable | + + + Support + + + + + | Name | Relationship | Address | Phone | + + + + + | Kole Willingham | [place] | [address] | | | | | [place], [place] | | | | | [address] | | + + + + + | Cami Sawyer | ECON | Unknown | | + + + + + Care Team Providers + +------+ + | Care Senior Database Engineer Name | Role | Phone | [...] Anesthesia | 6A Intra Op [address] | Joaan Sellers MD | | | 2014 | Event | [facility] | [address] | | | | | [facility] | [facility] | | | | | Hospital Admitting | [place] [address] | | | | | Desk Located on the | [phone] | | | | | 9th floor | | | | | | [place], [place] | Rajiv Willingham MD | | | | | [address] | [facility] | | | | | | [facility] [address] | | | | | | [facility] | | | | | | [place] [address] | | | | | | [phone] | | | | | | | [...] by | | D - | "port"); [facility]; 01/27/17 | Alberto London RN | Discontinued After | | [facility] | (Automatic cleanup per RA | | Discharge | | l Line | 3006--contact admin for | | | | | questions.); 1622 (Automatic | | | | | cleanup per RA 3006--contact | | | | | admin for questions.); Yes; Other | | | | | (comment) ([facility]); No; Left; | | | | | [...]
--- OUTSIDE RECORDS SUMMARY | ~2019-11-05 | XMS | Encounter Summary ---
Demographics + + + | Address | [address] | | | [place] [address] | + + + | Home Phone | | + + + | Preferred Language | Unknown | + + + | Marital Status | | + + + | Latter-Day Affiliation | NRP | + + + | Race | White | + + + | Ethnic Group | Not or | + + + Author + + + | Author | [facility] | + + + | Organization | [facility] | + + + | Address | Unknown | + + + | Phone | Unavailable | + + + Support + + + + + | Name | Relationship | Address | Phone | + + + + + | Kole Willingham | [place] | [address] | | | | | [place], [place] | | | | | [address] | | + + + + + | Cami Sawyer | ECON | Unknown | | + + + + + Care Team Providers + +------+ + | Care Aircraft Worker Name | Role | Phone | [...] | MD [address] | [address] | | | | | Rectovaginal | [address] | [address] | | | | | fistula | Kristen Rubio | [facility] | | | | | Procedures | [place], [place] | [facility] and | | | | | CONSULT TO | [address] | Healing, | | | | | GI PROCEDURE | Phone: | [address] | | | | | UNIT: | [phone] | [place], [place] | | | | | FLEXIBLE | Fax: | [address] | | | | | SIGMOIDOSCOP | [phone] | Phone: | | | | | [place] | | [phone] | | | | | SIGMOIDOSCOP | | Fax: | | | | | Y,BIOPSY | | [phone] | +--------+--------+ + + + + Reason [...] schedule tests | | 2016 | | [place] [address] [address] | [address] [facility] | | | | | [address] [facility] | Kristen Rubio [place], | | | | | [facility] and | [place] [address] | | | | | [facility] 2 | [phone] | | | | | [place], [place] | | | | | | [address] | | | | | | [phone] | | | +--------+ + + + [...]
--- OUTSIDE RECORDS SUMMARY | ~2019-11-05 | XMS | Encounter Summary ---
Demographics + + + | Address | [address] | | | [place] [address] | + + + | Home Phone [...] + + + | Author | [facility] | + + + | Organization | [facility] | + + + | Address | Unknown | + + + | Phone | Unavailable | + + + Support + + + + + | Name | Relationship | Address | Phone | + + + + + | Kole Willingham | [place] | [address] | | | | | [place], [place] | | | | | [address] | | + + + + + | Cami Sawyer | ECON | Unknown | | + + + + + Care Team Providers + +------+ + | Care Senior Core Java Developer Name | Role | Phone | + [...] 2011 | Event | [facility] | [address] | | | | | [facility] | [address] | | | | | Hospital Admitting | [place], [place] | | | | | Desk Located on the | [address] | | | | | 9th floor | [phone] | | | | | [facility] [place] | | | | | | [address] | Bigg Smalls MD | | | | | | [address] | | | | | | [address] | | | | | | [place], [place] | | | | | | [address] | | | | | | [phone] | | | | | | | [...] | Froylan Vázquez CRNA 15 min. Break 5019-5612 | | | 9 | | | [...] Smith RN | | Tanvi | | [facility] | | | y Cath | | [...] Cole RN | | Periph | | [place] [facility] | | | eral | | | [...]
--- OUTSIDE RECORDS SUMMARY | ~2019-11-05 | XMS | Encounter Summary ---
Demographics + + + | Address | [address] | | | [place] [address] | + + + | Home Phone | | + + + | Preferred Language | Unknown | + + + | Marital Status | | + + + | Gnosticism Affiliation | Unknown | + + + | Race | Unknown | + + + | Ethnic Group | Unknown | + + + Author + + + | Author | [facility] | | | and [place] | + + + | Organization | [facility] | | | [...] Team Providers + +------+ + | Care Steel Wheel Engraver Name | Role | Phone | + +------+ + | No, Physician | PCP | Unavailable | + +------+ + Reason for Visit + +--------+ + | Reason | Onset | Comments | | | Date | | + +--------+ + | Appointment | 03/15/ | | | | 2019 | | + +--------+ + Encounter Details +--------+ + + + + | Date | Type | Department | Care Team | Description | +--------+ + + + + | 03/15/ | Telephone | [facility] | Severo, | Appointment | | 2019 | | GENERAL SURGERY [address] | [address] | | | | | [address] | [address] | | | | | [place], [place] | [place] [address] | | | | | [address] | [phone] | | | | | [phone] | | | +--------+ + + + [...] this encounter Miscellaneous Notes Telephone Encounter - Dulce Marquez, Nursery Attendant - 03/15/2019 9:13 AM MIRYAM he attempted to contact this patient by phone with the following results: LVM stating I am ca lling to schedule appointment regarding edwinon. Left office phone number and encouraged abiodun jayesh to return my call. Electronically signed by Dulce Marquez Nursery Attendant at 08/2018 9:14 AM PSTdocumented in this encounter Plan of Treatment Not [...]
--- OUTSIDE RECORDS SUMMARY | ~2019-11-05 | XMS | Encounter Summary ---
Demographics + + + | Address | [address] | | | [place] [address] | + + + | Home Phone | | + + + | Preferred Language | Unknown | + + + | Marital Status | | + + + | Anabaptism Affiliation | Unknown | + + + | Race | Unknown | + + + | Ethnic Group | Unknown | + + + Author + + + | Author | [facility] | | | and [place] | + + + | Organization | [facility] | | | [...] Team Providers + +------+ + | Care Quality And Reliability Engineer Name | Role | Phone | [...] + + | 03/27/ | Office | [facility] | [place]o, | Rectovaginal fistula | | 2019 | Visit | GENERAL SURGERY [address] | [address] | (Primary Dx) | | | | [facility] [address] | [facility] [address] | | | | | [place], [place] | [place] [address] | | | | | [address] | [phone] | | | | | [phone] | | | +--------+---------+ + + + [...]
--- OUTSIDE RECORDS SUMMARY | ~2019-11-05 | XMS | Encounter Summary ---
Demographics + + + | Address | [address] | | | [place] [address] | + + + | Home Phone | | + + + | Preferred Language | Unknown | + + + | Marital Status | | + + + | Mormon Affiliation | Unknown | + + + | Race | Unknown | + + + | Ethnic Group | Unknown | + + + Author + + + | Author | [facility] | | | and [place] | + + + | Organization | [facility] | | | [...] Team Providers + +------+ + | Care Hearing Stenographer Name | Role | Phone | + +------+ + | No, Physician | PCP | Unavailable | + +------+ + Encounter Details +--------+ + + + + | Date | Type | Department | Care Team | Description | +--------+ + + + + | 03/02/ | Orders Only | [facility] | Enrique Bocanegra, | | | 2016 | | GENERAL SURGERY [address] | MD [address] | | | | | [address] | [facility] [address] | | | | | [place], [place] | [place] [address] | | | | | [address] | [phone] | | | | | [phone] | | | +--------+ + + + [...]
--- OUTSIDE RECORDS SUMMARY | ~2019-11-05 | XMS | Encounter Summary ---
Demographics + + + | Address | [address] | | | [place] [address] | + + + | Home Phone | | + + + | Preferred Language | Unknown | + + + | Marital Status | | + + + | Zoroastrianism Affiliation | NRP | + + + [...] [place], [place] | | | | | [address] | | + + + + + | Cami Sawyer | ECON | Unknown | | + + + + + Care Team Providers + +------+ + | Care Director Employment Name | Role | Phone | + [...] | | 2016 | | Center at [facility] [address] | | - General | | | | [facility] | | | | | | for Health and | | | | | | [facility] | | | | | | [place], [place] | | | | | | [address] | | | | | | [phone] | | | +--------+ + + + [...]
--- OUTSIDE RECORDS SUMMARY | ~2019-11-05 | XMS | Encounter Summary ---
Demographics + + + | Address | [address] | | | [place] [address] | + + + | Home Phone | | + + + | Preferred Language | Unknown | + + + | Marital Status | | + + + | Restoration Affiliation | NRP | + + + [...] [place], [place] | | | | | [address] | | + + + + + | Cami Sawyer | ECON | Unknown | | + + + + + Care Team Providers + +------+ + | Care Wheel Press Operator Name | Role | Phone [...] | | | | Hospital Admitting | [place], [place] | | | | | Desk Located on the | [address] | | | | | 9th floor | [phone] | | | | | [place], [place] | | | | | | [address] | | | +--------+---------+ + + + [...] was transferred from an outside hospital over [facility] for ischemic colitis. Hospital Course: Arterial thrombi: the patient was admitted to [facility] from [place] because she presented wit h nausea, bilious vomiting and was found by CT scan to have bowel wall thickening, 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 At arrival to [facility] it was learned that she did NOT indeed have ischemic colitis. 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 She underwent embolectomy on 03/17, which resulted in samaritan of flow and no loss of tissue [...] flagyl - [facility] However, vanc/cefepime/flagyl was used [...] Destination: Home Other Discharge Orders and Instructions product support engineer your lovenox syringes at the [facility]. Go to the hospital on Tuesday [...] forming. Please call your GI doctor in [facility] to arrange for your second infusion [...] whether or not the INR is truly accounting representative of anticoagulation. In patients with APLA [...] I NR on Tuesday. KIRIT RUST MD [facility] DEPARTMENT: [id number]- [facility] PPV Place of Service:- Inpatient Date of Service: 04/01/2012 CSN: [id number] Suggested Modifier: GC Resident Involved: Yes Suggested CPT: 97308- Dishcarge < 30 min Electronically signed by [...] questions. Debi Oconnor MD GI/Hepatology Fellow Pager: [phone] INTERVAL HISTORY: MRI abdomen shows no abscess; [...] risk of emboli, I called Dr. Rodriges ([facility] for her PCP) to coordinate f/u of [...] noted any additions above. KIRIT RUST MD [facility] DEPARTMENT: [id number]- [facility] PPV Place of Service:[id number]- Inpatient Date of Service: 03/31/2012 CSN: [id number] Suggested Modifier: GC Resident Involved: Yes Suggested CPT: 97194- Subsequent, Detailed/high complex, 35 min Davonte De [...] state: J Gastroenterol. 2004 Oct;39(10):948-54. PubMed PMID: [id number]. Consulted Heme for further studies on platelet [...] no insurance. Wanting to go home for Diana. Nurse repor ts that she has admitted [...] notes for assessment and pl an. Nuñez Denver, Sub-Bridge Builder Pgr: [phone] Rj, Ajay Barrett MD - 03/30/2012 11:39 PM [facility] Internal Medicine [...] bridge after d/c until coumading therapeutic with director of healthcare systems through medication assistance program Hypoalbuminemia (03/14/2012) Assessment: [...] noted any additions above. KIRIT MD YOCASTA [facility] DEPARTMENT: [id number]- [facility] PPV Place of Service:- Inpatient Date of Service: 03/30/2012 CSN: [id number] Suggested Modifier: GC Resident Involved: Yes Suggested CPT: 61803- Subsequent, Detailed/high complex, 35 min Debi Yepez [...] follow closely Shaun SAEED GI Fellow Pg [phone] signed by Debi Oconnor MD at 03/30/2012 5:32 PM Jacoby Ko MD - 03/30/2012 10:25 AM PSTFormatting of this note might be different from the origi nal. [facility] DEPARTMENT OF SURGERY Daily Progress Note PROGRESS NOTE: Attending Physician: Xin Rust MD 03/31/2012 Subjective/Overnight Events: - latest CT shows resolution of abscess - no GI bleeding - no rectal/anal pain - tolerating reg diet MEDICATIONS: Reviewed in [facility] VITAL SIGNS: Refer to [facility] Intake/Output Summary (Last 24 hours) at [...] concerns. Jacoby Tovar MD Surgery, R2 Diagnoses: [id number] Crohn disease This assessment and plan was [...] state: J Gastroenterol. 2004 Jan;39(10):948-54. PubMed PMID: [id number]. Consulted Heme for further studies on platelet [...] this note might be different from the [facility]. Transfer Accept Note Patient: Mackenzie Hartley Attending: [...] Nathan Weeks MD Internal Medicine PGY1 Pager [phone] Cecilia Baker MD - 03/29/2012 6:37 PM [...] team. Debi Oconnor MD GI Fellow Pager [phone] signed by Debi Oconnor MD at 03/29/2012 [...] planning) Debi Oconnor MD Fellow, Gastroenterology pager: [phone] signed by Debi Oconnor MD at 03/29/2012 [...] note for this encounter. OSBALDO GARCIA MD [facility] [address] [place] [address] Andrew Shah MD - 10:41 AM PST [facility] DEPARTMENT OF SURGERY Daily Progress Note PROGRESS NOTE: Attending Physician: Osbaldo Garcia MD 03/29/2012 Subjective/Overnight Events: - bowel prep initiated - Hct stable - no hematochezia or hemetemesis - MEDICATIONS: Reviewed in [facility] VITAL SIGNS: Refer to EPIC Intake/Output [...] GI Jacoby Tovar MD Surgery, R2 Diagnoses: [id number] Crohn disease This assessment and plan was [...] myself provided conscious sedation. OSBALDO GARCIA MD [facility] [address] [place] [address] I spent 35 min in critical care (not including procedures) [facility] DEPARTMENT: MICU, [facility]- [id number] Place of Service: - Date of Service: 03/29/2012 CSN: [id number] Modifiers:GC Resident Involved: yes Suggested CPT: 89379 Critical Care, Initial 30-74 minutes Carlton Godwin [...] day of transfer to MICU (1 05/29/11), [facility] informed us that according to the [...] 0659 03/29/12 07 - 03/30/12 0659 Shift 9299-5026 5304-6098 4711-0141 Daily Total 8743-1575 0415-5251 7475-8190 Daily Total I N T A K E P.O. 1750 2525 4275 I.V. 934 9732 460 0095 Shift Total 934 3740 3450 8124 O U T P U T Urine 1075 2950 1875 5900 Urine 1075 2950 1875 5900 Other 575 602 225 0384 Measured Stool Output 350 425 775 Stool/Urine Mix 575 575 Shift Total 1650 3300 2300 7250 NET -284 498 0054 874 Intake/Output Summary (since admission) at 03/12/12 1910 Last data filed at 03/29/12 0547 Gross for the last 17 days Intake 22932 ml Output 05923 ml Net since Admission -18111 ml Physical Exam: General Appearance: middle aged [...] Carlton Betancourt DO PGY-1 Internal Medicine Pager [phone] Debi Yepez MD - 03/11 4:31 PM [...] questions. Debi Oconnor MD GI/Hepatology Fellow Pager: [phone] INTERVAL HISTORY: Episode of melena last night [...] patient in the past. OSBALDO GARCIA MD [facility] [address] [address] I spent 35 min in critical care (not including procedures) EPIC DEPARTMENT: [facility]- [id number] Place of Service: Date of Service: 03/28/2012 CSN: [id number] Modifiers:GC Resident Involved: yes Suggested CPT: 42710 Critical Care, Initial 30-74 minutes Carlton Godwin [...] 03/28/12 0659 03/28/12699 - 03/29/12 0659 Shift 8449-0679 7128-2689 5097-8236 Daily Total 2198-1934 3671-6859 7613-3974 Daily Total I N T A K E P.O. 240 300 540 I.V. 404 404 934 934 Blood 1300 1300 Shift Total 818 355 6911 2244 934 934 O U T P [...] Gross for the last 16 days Intake 40374 ml Output 18687 ml Net since Admission -13912 ml Physical Exam: General Appearance: tearful middle [...] Carlton Betancourt DO PGY-1 Internal Medicine Pager [phone] Andrew Shah MD - 6:52 AM PST [...] Sukumar Zuniga DO Internal Medicine PGY-2 Pg [phone] Davonte De La Rosa MD - 03/27/2012 [...] noted any additions above. KIRITYann RUST MD [facility] DEPARTMENT: [id number]- [facility] PPV Place of Service:- Inpatient Date of Service: 03/27/2012 CSN: [id number] Suggested Modifier: Resident Involved: Yes Suggested CPT: 82927- Subsequent, Detailed/high complex, 35 min Marely Mccann [...] was discussed and formulated with gastroenterology at [facility], Dr. Hennessy. Please call with any questions. Debi Oconnor MD GI/Hepatology Fellow Pager: [phone] INTERVAL HISTORY: Imaging reviewed with radiology; too [...] Dung Victor - 2 11:30 AM PST EMAIL PRODUCTION SPECIALIST NOTE: Visited with Patient. 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 Chiropractic Practice Manager team will follow as needed. Chaplain Dung Riley M.Div., [facility] [phone] Pager #[phone]; #[phone] Xin De La Rosa MD - 7:31 [...] J Gastroenterol. 2004 Jan;39(10):948-54. PubMed PMID: [id number]. Consulted Heme for further studies on platelet [...] an. ---- Joaquin Rivera, MS4 Pager # [phone] signed by Xin Rust MD at 03/27/2012 [...] noted any additions above. 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 Raphael Norman MD Internal Medicine, PGY-2 [phone] Xin De La Rosa MD - 03/25/2012 [...] larger Resident spoke with vice president of engineering who spoke with staff - they did [...] taking more PO if still low ask mutual fund accountant to see Hypophosphatemia (03/14/2012) Assessment: rechecked and [...] noted any additions above. KIRIT MD YOCASTA [facility] DEPARTMENT: [id number]- [facility] P[facility] Place of Service:- Inpatient Date of Service: 03/25/2012 CSN: [id number] Suggested Modifier: Resident Involved: Yes Suggested CPT: 02194- Subsequent, Detailed/high complex, 35 min oaquin Rivera [...] J Gastroenterol. 2004 Jan;39(10):948- 54. PubMed PMID: [id number]. Consulted [facility] for further studies on platelet inhibitor [...] an. ---- Joaquin Rivera, VIVIANA Pager # [phone] Ajay De La Rosa MD - 03/24/2012 [...] drainage of abscess and coordination of care [facility] radiology reviewing perirectal abscess imaging, options for intervention and need for rep eat imagin, also with GI on plan. I personally interviewed the patient, performed the gunter elements of the physical examinatio n, and personally formulated the assessment and plan with the resident. I agree with the MS4 s documentation and have noted any additions above. KIRIT MD YOCASTA [facility] DEPARTMENT: [id number]- [facility] PPV Place of Service:- Inpatient Date of Service: 03/24/2012 CSN: [id number] Suggested Modifier: Resident Involved: Yes Suggested CPT: 93355- Subsequent, Detailed/high complex, 35 min Davonte De [...] J Gastroenterol. 2004 Jan;39(10):948- 54. PubMed PMID: [id number]. Consulted Heme for further studies on platelet [...] an. ---- Joaquin Nicole, MS4 Pager # [phone] Ajay De La Rosa MD - 03/23/2012 [...] noted any additions above. KIRIT MD YOCASTA [facility] DEPARTMENT: [id number]- [facility] PPV Place of Service:- Inpatient Date of Service: 03/23/2012 CSN: [id number] Suggested Modifier: GC Resident Involved: Yes Suggested CPT: 93100- Subsequent, Detailed/high complex, 35 min Davonte De [...] 25 mL, Intravenous, PRN, Bibiaan Adams PA-C glucagon (aka GLUCAGEN) injection 1 [...] to be done today JERI DIAZ MD [facility] [address] [place] [address] Xin De La Rosa MD - 03/23/2012 [...] state: J Gastroenterol. 2004 Jan;39(10):948-54. PubMed PMID: [id number]. Consulted Heme for further studies on platelet [...] an. ---- Joaquin Rivera, VIVIANA Pager # [phone] Ajay De La Rosa MD - 03/22/2012 [...] noted any additions above. KIRITYann RUST MD [facility] DEPARTMENT: [id number]- [facility] P[facility] Place of Service:- Inpatient Date of Service: 03/22/2012 CSN: [id number] Suggested Modifier: Resident Involved: Yes Suggested CPT: 17834- Subsequent, Detailed/high complex, 35 min ox, Jeri [...] carotid duplex ordered today JERI DIAZ MD [facility] [address]A [address] [place], [place] [id number] Xin De La Rosa MD - 03/22/2012 [...] PTT in mixing 1:1 Neg cardiolipin, neg ltoz-E-bezryxhvcdnt Legionella Agg Urine pending Cultures: BLOOD CULTURE [...] barber: J Gastroenterol. 2004 Jan;39(10):948-54. PubMed PMID: [id number]. - Consult Heme for further studies on [...] an. ---- Joaquin Rivera, MS4 Pager # [phone] Ajay De La Rosa MD - 03/21/2012 [...] BP 142/76 | Pulse 106[sinus tach per senior telecommunications technician[ | Temp 37.7 C (99.9 F) | [...] -- also coordination of care with pharmD. [facility] DEPARTMENT: [id number]- [facility] PPV Place of Service:- Inpatient Date of Service: 03/21/2012 CSN: [id number] Suggested Modifier: GC Resident Involved: Yes Suggested CPT: 81543- Subsequent, Detailed/high complex, 35 min Jennifer Tolentino [...] y.o. Female with multiple complex medical problems; [facility] Vascular Surge ry consulted due to Right [...] as new baseline Ok to discharge per [facility] Vascular Surgeons once ambulating and medical issues are stable. Will continue to follow while in patient. [facility] Vascular Surgery Clinic, [address], phone number [phone] Please schedule followup appointment within 2-3 weeks of surgery for wound check. Dr. Sukumar Salgado, [facility] Vascular Surgery Attending. MERT OLIVA [facility] VASCULAR SURGERY [facility] [place], [place] [id number] haMoses hill MD - 03/21/2012 6:55 AM [...] w ill need to establish care with rivet sticker so that further treatment options can be [...] assessment and plan. Moses Anthony MD Neurology Bridge Builder Pager [phone] oaquin Rivera - 02/2012 6:55 AM PST [...] an. ---- Joaquin Goodwinidad, MS4 Pager # [phone] Xin De La Rosa M D - 03/20/2012 11:09 PM [facility]3 Internal Medicine [...] noted any additions above. KIRITYann RUST MD [facility] DEPARTMENT: [id number]- [facility] PPV Place of Service:- Inpatient Date of Service: 03/20/2012 CSN: [id number] Suggested Modifier: GC Resident Involved: Yes Suggested CPT: 11457- Subsequent, Detailed/high complex, 35 min oeller, Jennifer Hill [facility] - 03/20/2012 3:36 PM PST [...] y.o. Female with multiple complex medical problems; [facility] Vascular Surge ry consulted due to Right [...] new blood-flow baseline Ok to discharge per [facility] Vascular Surgeons once ambulating and medical issues are stable. Will continue to follow while in patient. [facility] Vascular Surgery Clinic, [address], phone number [phone] Please schedule followup appointment within 2-3 weeks of surgery for wound check. Dr. Sukumar Salgado, [facility] Vascular Surgery Attending. MERT OLIVA [facility] VASCULAR SURGERY [address] [facility] [place] [address] icci, Raphael Saab MD - 03/20/2012 7:58 [...] plan. Raphael Norman MD Internal Medicine, PGY-2 [id number] oaquin Rivera - 7:58 AM PST Medicine [...] an. ---- Joaquin Rivera, MS4 Pager # [phone] atson, Juma Ferrer MD - 03/19/2012 3:35 [...] record is Dr. Salgado. JUMA CARRINGTON MD [facility] [address] [place] [address] Chary Moore M D - 03/19/2012 9:14 [...] note from 03/14 for details. Therefore the ijlj-syiu-gtefb plan givens s been to allow her [...] plan. Lovenox bridge to be covered by [facility]. 9) Occlusive thrombus 10) Hypoalbuminemia 11) Hypophosphatemia 12) TIA (transient ischemic attack) - with PFO 13) PFO (patent foramen ovale) - plan is for lifelong coumadin. No additional benefit from device closure per CLOSURE I trial. Chary Doherty MD Chief Resident, Internal Medicine Pager: [phone] [facility] DEPARTMENT: Hosp- [id number] Place of Service: - Date of Service: 03/19/2012 CSN: [id number] Modifiers:GC Resident Involved: Yes Suggested CPT: 07174 Subsequent Visit Detailed/High complexity 35 min I [...] will need to establish c are with rivet sticker so that further treatment options can be [...] assessment and plan. Moses Anthony MD Neurology Bridge Builder Pager [phone] tJose Antonio prado MD - 03/18/2012 1:01 [...] outpt GI, plans to establish care in [place], perhaps Dr. Harri. Transitioning to PO meds, [...] Doherty MD Chief Resident, Internal Medicine Pager: [phone] [facility] DEPARTMENT: Hosp- [phone] Place of Service: - Date of Service: 03/18/2012 CSN: [id number] Modifiers:AKHIL Resident Involved: Yes Suggested CPT: 63100 Subsequent Visit Exp Prob Foc/Mod Complexity 25 [...] Date 03/18/12 07 - 03/19/12 0659 Shift 8636-5684 4426-1146 6761-5853 24 Hour Total I N T A K E P.O. 620 620 I.V. 20 20 40 Shift Total 640 20 660 O U T P U T Urine 675 100 775 Other 400 400 Shift Total 123 498 9397 Weight (kg) 74.1 74.1 74.1 74.1 General: [...] refusing). Will need to establish care with rivet sticker so that further treatment options can be [...] in MS4 note. Moses Anthony MD Neurology Bridge Builder Pager [phone] signed by Moses Asher MD at 03/18/2012 [...] an. ---- Nuñez Nicole, MS4 Pager # [phone] Chary Moore MD - 03/17/2012 8:39 PM [...] refusing). Will need to establish care with rivet sticker so this can be discussed as outpt [...] Doherty MD Chief Resident, Internal Medicine Pager: [phone] [facility] DEPARTMENT: Hosp- [phone] Place of Service: - Date of Service: 03/17/2012 CSN: [id number] Modifiers: Resident Involved: Yes Suggested CPT: 27888 Subsequent Visit Detailed/High complexity 35 min I [...] at end of case. MIRELA SALGADO MD [facility] [address] [address] [place] [address] ham, Gloria Lawson MD - 1 05/18/2011 [...] until she's therapeutic with her coumadin and [facility] has agreed to provide discounted INR [...] reatment for the abscess, but because Mrs. Manica insurance coverage will not begin until t [...] y Gloria Anthony MD Neurology PGY1 Pager: [phone] oaquin Rivera - 10/2011 7:19 AM PST [...] an. ---- Joaquin Rivera, MS4 Pager # [phone] Chary Moore MD - 03/16/2012 12:56 PM [...] Doherty MD Chief Resident, Internal Medicine Pager: [phone] [facility] DEPARTMENT: Hosp- [id number] Place of Service: Date of Service: 03/16/2012 CSN: [id number] Modifiers:GC Resident Involved: Yes Suggested CPT: 08728 Subsequent Visit Exp Prob Foc/Mod Complexity 25 min and 86792 Subseque nt Visit Detailed/High complexity 35 min [...] DNR/DNI Gloria Anthony MD Neurology PGY-1 Pager [phone] The patient was seen and discussed with [...] Doherty MD Chief Resident, Internal Medicine Pager: [phone] [facility] DEPARTMENT: Hosp- [id number] Place of Service: - Date of Service: 03/15/2012 CSN: [id number] Modifiers:GC Resident Involved: Yes Suggested CPT: 57640 Subsequent Visit Detailed/High complexity 35 min Henrique [...] plan. Dariela Santoyo MD Internal Medicine PGY-3 [id number] aryl Arteaga MD - 08/2011 7:18 PM PSTHematology Attending Consult Note: I saw and examined Ms. Hartley with the Hematology Fellow, Dr. Anthony Camejo and [facility] [place] the 5A Medicine unit. I participated in the gunter components of [facility] p[facility] visit including review of the history, [...] re Daryl Arteaga MD, PhD Hematology Oncology [facility] DEPARTMENT: [id number]- HEM FACULTY [facility] Place of Service: - Inpatient Date of Service: 03/15/2012 Modifiers: GC - Resident Involved Suggested CPT: 17895 - Subsequent, Detailed/High complex 35 min Anthony [...] anticoagulation clinic f/u closely; our clinic at [facility] cannot provide any suppli es -anticoagulation with [...] as above. MD Hematology/Oncology Fellow Pager # [phone] signed by Daryl Arteaga MD at 03/15/2012 [...] with any questions. Bigg Robles, R1 Pager: [phone] INTERVAL HISTORY: - NAEO - VSS, AF [...] wishes to pro ceed. Mirela Samano M.D. [facility] Vascular Surgery [address] [place] [address] Email: [email or web address], Sandoval Barrett MD - 03/15/2012 9:30 [...] off to day. Jacoby Tovar MD Surgery [id number] signed by Sandoval Tovar MD at 03/15/2012 [...] monitor Gloria Anthony MD Neurology PGY1 Pager [phone] Daryl Singleton MD - 07/2011 4:57 PM PSTHematology Attending Consult Note: I saw and examined Ms. Hartley with the Hematology Fellow, Dr. Anthony Camejo in the [address] [place] [address] unit. I participated in the gunter components [...] re Daryl Arteaga MD, PhD Hematology Oncology [facility] DEPARTMENT: [id number]- HEM FACULTY [facility] Place of Service: - Inpatient Date of Service: 03/14/2012 Modifiers: GC - Resident Involved Suggested CPT: 64421 - Subsequent, Detailed/High complex 35 min Anthony [...] as above. MD Hematology/Oncology Fellow Pager # [phone] signed by Daryl Arteaga MD at 03/14/2012 [...] really for treatment Recommendations communicated with 3 programming internship. We will continue to follow. This plan was discussed and formulated with gastroenterology at [facility], Dr. Casiano. Please call with any questions. Bigg Margaret, R1 Pager: [phone] Attending Attestation: I personally interviewed the patient, performed the relevant elements of the physical exami [facility], and formulated the assessment and plan [...] She may follow-up wit h her local rivet sticker or may follow up with me at [facility] if she wishes to consider di fferent evaluation or treatment. Gopal Casiano MD Outside Maintenance Workerbrick unloader tender Department of Gastroenterology INTERVAL HISTORY: - NAEO [...] IMAGING Reviewed outside imaging with radiologist at [facility] and CT abd and pelvis shows 2 [...] Intake/Output Summary (Last 24 hours) at 03/14/12 0948 Last data filed at 03/14/12 0501 Gross [...] Becca Moncada MD General Surgery, R2 Pager: [phone] [facility] Staff I saw and evaluated the patient. I agree with the findings and the plan of care as jannie hair in the resident s note. Left foot warm and well perfused. Patient pain-free. Will repe at [facility] to see if there has been any thrombus progression. No urgent need for surgery on left leg at this point. Mirela Samano M.D. 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 She also had leukocytosis to 45 with a left shift, anemia, and thrombocytosis (platelets to 759). Her abdominal exam was not acute and she remained hemodynamically stable. Transferre d to [facility] for possible thrombectomy, initiated heparin therapy, and [...] were obscured by overlying bowel gas. The lhv-nb-bbpiew left external iliac arteries appear patent with [...] transient arterial occlusion. Reported CT findings at [facility] are also concerning for diffuse [...] PROGRESS NOTE: Hospital Day:1 Author; CARLOS A SALICDO MD Attending Physician: Bowen Bergeron History: 56 [...] CARLOS A SALCIDO MD R2, General Surgery [place] [facility] 03/13/2012 1:20 PM Current Facility-Administered Medications [...] 16 g 16 g Oral Q15MIN PRN Ibbiana C Reeve, PA-C heparin bolus from continuous [...] LastCBG Intervention: Notified MD (Comment);Medication given (03/12/12 2216) CBC with diff last 72 hours (or [...] Becca Moncada MD General Surgery, R2 Pager: [phone] Vascular Staff I saw and evaluated the [...] at a later time. Mirela Samano M.D. [facility] V[facility] Surgery [address] [facility], [address] [address] Email: [email or web address] Richie Goodman MD - 06/2011 11:15 AM PSTI was present and rounded with the DIETITIAN TEACHING today. I interviewed and examined the patient. I reviewed the history, as documented today. I agree with the DIETITIAN TEACHING's assessmen t and plan. Pt is stable [...] visceral and aortic thrombus transfer red from [place] last night with concerns for ischemic bowel. [...] and celiac arteries who was transferred to [facility] for management o f vascular disease and possible bowel ischemia. No evidence of bowel ischemia, bowel thicken ing likely Crohn's flare. 1. Crohn's flare: GI consult. Consider transfer to medicine for crohn's management with va utular following 2. Multivessel occlusions/thrombii: vascular surgery following. [...] general medicine service. Jf Wiseman MD FACS delivery coordinator Division of Trauma, Critical Care, and Acute Care Surgery [phone] documented in this e ncounter Plan of [...] | + + + + + | [facility] | [address] | [place] [address] | | | JANELL SHARP | BERTRAM [...] LABORATORY | [address] | [place] [address] | | | SERVICES, CORE | PARK [...] | + + + + + | [facility] | [address] [facility] | [place] [address] | | | SERVICES, JANELL | BERTRAM [...] [facility] | [address] | [place] [address] | | | SERVICES, CORE | PARK [...] | + + + + + | [facility] | [address] | [place] [address] | | | SERVICES, CORE | BERTRAM [...] | + + + + + | [facility] | [address] | [place] [address] | | | SERVICES, CORE | PARK [...] | + + + + + | [facility] | [address] | [place] [address] | | | SERVICES, CORE | PARK [...] [facility] | [address] | [place] [address] | | | SERVICES, CORE | PARK [...] [facility] | [address] | [place] [address] | | | SERVICES, CORE | PARK [...] [facility] | [address] | [place] [address] | | | SERVICES, CORE | PARK [...] [facility] | [address] | [place] [address] | | | SERVICES, CORE | PARK [...] | + + + + + | [facility] | [address] [facility] | [place] [address] | | | SERVICES, CORE | BERTRAM [...] | + + + + + | [facility] | [address] | [place] [address] | | | JANELL SHARP | BERTRAM [...] + | [facility] | [address] | [place] [address] | | | [place] | | | [...] + | [facility] | [address] | [place] [address] | | | [place] | | | [...] + | [facility] - | [address] | [place] [address] | | | [place] | | | | + + + [...] | + + + + + | [facility] | [address] | [place] [address] | | | SERVICES, CORE | BERTRAM [...] LABORATORY | [address] | [place] [address] | | | SERVICES, CORE | PARK [...] | + + + + + | [facility] | [address] | [place] [address] | | | SERVICES, JANELL | BERTRAM [...] | + + + + + | [facility] | [address] | [place] [address] | | | SERVICES, CORE | BERTRAM [...] + + + + | [facility] | [address] | [place] [address] | | | PATHOLOGY | [address] [...] | + + + + + | [facility] | [address] | [place] [address] | | | SERVICES, CORE | BERTRAM [...] | + + + + + | [facility] | [address] | [place] [address] | | | SERVICES, CORE | BERTRAM [...] [facility] | [address] | [place], [place] | | | [facility] | [address] | [address] | | | TESTS | | | [...] LABORATORY | [address] | [place] [address] | | | SERVICES, CORE | BERTRAM [...] [facility] | [address] | [place] [address] | | | SERVICES, CORE | PARK [...] | + + + + + | [facility] | [address] | [place] [address] | | | SERVICES, CORE | PARK [...] [facility] | [address] | [place], [place] | | | [facility] [place] | [address] | [address] | | | TESTS | | | [...] [facility] | [address] | [place] [address] | | | SERVICES, CORE | BERTRAM [...] [facility] | [address] | [place] [address] | | | SERVICES, CORE | BERTRAM [...] [facility] | [address] | [place] [address] | | | SERVICES, CORE | BERTRAM [...] LABORATORY | [address] | [place] [address] | | | SERVICES, CORE | PARK [...] + + + + | PRODUCT | [id number] | | [facility] | | | UNIT [...] + + + + | BLOOD | 12867 | | [facility] | | | PRODUCT [...] + + + + | [facility] | [address] | [place] [address] | | | PATHOLOGY | [address] [...] + + + + | PRODUCT | [id number] | | [facility] | | | UNIT [...] + + + + | BLOOD | [id number] | | [facility] | | | PRODUCT [...] + + + + | [facility] | [address] | [place] [address] | | | PATHOLOGY | [address] [...] (H) | 60 - 99 mg/dL | [facility] - | | | GLUCOSE, | | [...] [facility] | [address] | [place], [place] | | | [facility] | [address] | [address] | | | TESTS | | | [...] [facility] | [address] | [place] [address] | | | SERVICES, CORE | BERTRAM [...] view image for the detailed interpretation from [employer]. | CARDIOLOGY | + + + + + + + + | Performing | Address | City/State/Zipcode | Phone Number | | Organization | | | | + + + + + | [facility] | [address] | [place], [place] | | | CARDIOLOGY | [address] | [address] | | + + + + + [...] | + + + + + | [facility] | [address] | [place] [address] | | | SERVICES, CORE | BERTRAM [...] + + + + | PRODUCT | [id number] | | [facility] | | | UNIT [...] + + + + | BLOOD | 42691 | | [facility] | | | PRODUCT [...] DEPARTMENT OF | [address] | [place] [address] | | | PATHOLOGY | [address] [...] + + + + | PRODUCT | [id number] | | [facility] | | | UNIT [...] + + + + | BLOOD | 92297 | | [facility] | | | PRODUCT [...] + + + + | [facility] | [address] | [place] [address] | | | PATHOLOGY | [address] [...] LABORATORY | [address] | [place] [address] | | | SERVICES, CORE | BERTRAM [...] + | [facility] | [address] | [place] [address] | | | SERVICES, CORE | PARK [...] [facility] | [address] | [place] [address] | | | SERVICES, CORE | PARK [...] | + + + + + | [facility] | [address] | [place] [address] | | | SERVICES, CORE | PARK [...] [facility] | [address] | [place] [address] | | | SERVICES, | [address] [...] | + + + + + | [facility] | [address] | [place] [address] | | | SERVICES, | [address] [...] + + + + | PRODUCT | [id number] | | [facility] | | | UNIT [...] + + + + | BLOOD | 61304 | | [facility] | | | PRODUCT [...] DEPARTMENT OF | [address] | [place] [address] | | | PATHOLOGY | [address] [...] + + + + | PRODUCT | [id number] | | [facility] | | | UNIT [...] + + + + | BLOOD | 18989 | | [facility] | | | PRODUCT [...] + + + + | [facility] | [address] | [place] [address] | | | PATHOLOGY | [address] [...] | + + + + + | [facility] | [address] | [place] [address] | | | SERVICES, CORE | BERTRAM [...] | + + + + + | [facility] | [address] | [place] [address] | | | SERVICES, CORE | BERTRAM [...] | + + + + + | [facility] | [address] | [place] [address] | | | SERVICES, CORE | BERTRAM [...] (H) | 0.90 - 1.20 INR | [facility] | | | | | | LABORATORY [...] [facility] | [address] | [place] [address] | | | SERVICES, CORE | PARK [...] | + + + + + | [facility] | [address] | [place] [address] | | | SERVICES, CORE | BERTRAM [...] | + + + + + | [facility] | [address] | [place] [address] | | | SERVICES, CORE | BERTRAM [...] [facility] | [address] | [place] [address] | | | SERVICES, CORE | PARK [...] [facility] | [address] | [place] [address] | | | ARON, JANELL | BERTRAM [...] [facility] | [address] | [place] [address] | | | SERVICES, CORE | PARK [...] | + + + + + | [facility] | [address] | [place] [address] | | | ARON, JANELL | BERTRAM [...] | + + + + + | [facility] | [address] | [place] [address] | | | ARON, JANELL | BERTRAM [...] | + + + + + | [facility] | [address] | [place] [address] | | | SERVICES, CORE | BERTRAM [...] (H) | 0.90 - 1.20 INR | [facility] | | | | | | LABORATORY [...] | + + + + + | [facility] | [address] | [place] [address] | | | SERVICES, CORE | PARK [...] | + + + + + | [facility] | [address] | [place] [address] | | | SERVICES, CORE | BERTRAM [...] [facility] | [address] | [place] [address] | | | SERVICES, CORE | PARK [...] oral, | | | | | | [id number] hrs | | | | | | [...] | | + +---------+ + + | [facility] DEPARTMENT OF | | | | | [...] [facility] | [address] | [place] [address] | | | SERVICES, CORE | BERTRAM [...] [facility] | [address] | [place] [address] | | | SERVICES, CORE | PARK [...] | + + + + + | [facility] | [address] | [place] [address] | | | SERVICES, CORE | PARK [...] [facility] | [address] | [place] [address] | | | SERVICES, CORE | PARK [...] | + + + + + | [facility] | [address] | [place] [address] | | | SERVICES, CORE | BERTRAM [...] | | | | Final | | [place] | | | | CULTURE RESULT:< 10,000 [...] | + + + + + | [facility] - | [address] | [place] [address] | | | [place] | | | [...] [facility] | [address] | [place] [address] | | | SERVICES, CORE | BERTRAM [...] | + + + + + | [facility] | [address] | [place] [address] | | | SERVICES, CORE | BERTRAM [...] | + + + + + | [facility] | [address] | [place] [address] | | | SERVICES, CORE | BERTRAM [...] | + + + + + | [facility] | [address] | [place] [address] | | | JANELL SHARP | BERTRAM [...] view image for the detailed interpretation from [employer] results. | CARDIOLOGY | + + + + + + + + | Performing | Address | City/State/Zipcode | Phone Number | | Organization | | | | + + + + + | [facility] | [address] | [place], [place] | | | CARDIOLOGY | [address] | [address] | | + + + + + [...] | + + + + + | [facility] | [address] | [place] [address] | | | SERVICES, CORE | PARK [...] | + + + + + | [facility] | [address] | [place] [address] | | | SERVICES, CORE | PARK [...] | + + + + + | [facility] | [address] | [place] [address] | | | SERVICES, CORE | PARK [...] [facility] | [address] | [place] [address] | | | SERVICES, CORE | PARK [...] | | | | | | Jase,Kiley Damoncount includes the [facility] | | | | | | [place], [place] [address] | | | | | | [phone]. | | | | | | Kaitlin [...] [facility] | [address] | [place], [place] | | | [facility] | | [address] | | + + + + + [...] LABORATORY | [address] | [place] [address] | | | SERVICES, JANELL | BERTRAM [...] | + + + + + | [facility] | [address] [facility] | [place] [address] | | | SERVICES, CORE | BERTRAM [...] | + + + + + | [facility] | [address] | [place] [address] | | | SERVICES, CORE | [address] | | | + + + + + 12 LEAD ECG (03/22/2012 2:58 PM PST) + + + + + + | Component | Value | Ref Range | Performed | Pathologist | | | | | At | Signature | + + + + + + | VENTRICULAR | 87 | BPM | [facility] | | | RATE | | [...] | | | | | XIN GARZON (9026) | | | | | | on 03/22/2012 4:25:06 PM | | | | + + + + + + + + | Specimen | + + | | + + + + + | Narrative | Performed At | + + + | Please click | [facility] | | on view image for the detailed interpretation from [employer] results. | CARDIOLOGY | + + + + + + + + | Performing | Address | City/State/Zipcode | Phone Number | | Organization | | | | + + + + + | [facility] | [address] | [place], [place] | | | CARDIOLOGY | [address] | [address] | | + + + + + [...] [facility] | [address] | [place], [place] | | | [facility] | [address] | [address] | | | TESTS | | | [...] [facility] | [address] | [place], [place] | | | [place], POINT OF CARE | [address] | [address] | | | TESTS | | | [...] [facility] | [address] | [place] [id number] | | | SERVICES, CORE | BERTRAM [...] LABORATORY | [address] | [place] [address] | | | SERVICES, CORE | BERTRAM [...] [facility] | [address] | [place] [address] | | | SERVICES, CORE | PARK [...] [facility] | [address] | [place] [address] | | | SERVICES, CORE | BERTRAM [...] | + + + + + | [facility] | [address] | [place] [address] | | | SERVICES, CORE | BERTRAM [...] (H) | 60 - 99 mg/dL | [facility] - | | | GLUCOSE, | | [...] [facility] | [address] | [place] | | | [facility] | [address] | [address] | | | TESTS | | | [...] | + + + + + | [facility] | [address] | [place] [address] | | | SERVICES, CORE | BERTRAM [...] (H) | 60 - 99 mg/dL | [facility] - | | | GLUCOSE, | | [...] [facility] | [address] | [place], [place] | | | [facility] [place] | [facility] | [address] | | | TESTS | | | [...] view image for the detailed interpretation from [employer] results. | CARDIOLOGY | + + + + + + + + | Performing | Address | City/State/Zipcode | Phone Number | | Organization | | | | + + + + + | [facility] | [address] | [place], [place] | | | CARDIOLOGY | [address] | [address] | | + + + + + [...] [facility] | [address] | [place] | | | [facility] [place] | [address] | [address] | | | TESTS | | | [...] | + + + + + | [facility] | [address] | [place] [address] | | | SERVICES, CORE | [address] [...] | + + + + + | [facility] | [address] | [place] [address] | | | SERVICES, CORE | BERTRAM [...] | + + + + + | [facility] | [address] | [place] [address] | | | SERVICES, CORE | BERTRAM [...] | + + + + + | [facility] | [address] | [place] [address] | | | SERVICES, JANELL | [address]TRAM [...] | + + + + + | [facility] | [address] | [place] [address] | | | JANELL SHARP | BERTRAM [...] GARCIA | | | | | | (0254) on 03/22/2012 | | | | | | 12:47:28 PM | | | | + + + + + + + + | Specimen | + + | | + + + + + | Narrative | Performed At | + + + | Please click | [facility] | | on view image for the detailed interpretation from [employer] results. | CARDIOLOGY | + + + + + + + + | Performing | Address | City/State/Zipcode | Phone Number | | Organization | | | | + + + + + | [facility] | [address] [facility] | [place], [place] | | | CARDIOLOGY | [facility] | [address] | | + + + + + [...] | | | | | | Fortino Crarillo I have | | | | | [...] | + + + + + | [facility] | [address] | [place] [address] | | | SERVICES, CORE | [address]TRAM [...] | + + + + + | [facility] | [address] | [place] [address] | | | JANELL SHARP | BERTRAM [...] 98 | 60 - 99 mg/dL | [facility] - | | | GLUCOSE, | | [...] [facility] | [address] | [place], [place] | | | [facility] | [address] | [address] | | | TESTS | | | [...] view image for the detailed interpretation from [employer] results. | CARDIOLOGY | + + + + + + + + | Performing | Address | City/State/Zipcode | Phone Number | | Organization | | | | + + + + + | [facility] | [address] | [place], [place] | | | CARDIOLOGY | [address] | [address] | | + + + + + [...] [facility] | [address] | [place], [place] | | | [facility] [place] | [address] | [address] | | | TESTS | | | [...] [facility] | [address] | [place] | | | [facility] | [address] | [address] | | | TESTS | | | [...] | + + + + + | [facility] | [address] | [place] [address] | | | SERVICES, JANELL | BERTRAM [...] | + + + + + | [facility] | [address] | [place] [address] | | | [facility] | [address] | | | + [...] | + + + + + | [facility] | [address] | [place] [address] | | | JANELL SHARP | BERTRAM [...] | + + + + + | [facility] | [address] | [place] [address] | | | SERVICES, CORE | BERTRAM [...] (H) | 60 - 99 mg/dL | [facility] - | | | GLUCOSE, | | [...] + + + | [facility] | [address] | [place] | | | [facility] | [address] | [address] | | | TESTS | | | [...] [facility] | [address] | [place] | | | [facility] | [address] | [address] | | | TESTS | | | [...] | + + + + + | [facility] | [address] | [place] [address] | | | SERVICES, JAENLL | [address] | | | + [...] | + + + + + | [facility] | [address] | [place] [address] | | | SERVICES, CORE | BERTRAM [...] (H) | 60 - 99 mg/dL | [facility] - | | | GLUCOSE, | | [...] + + + | [facility] | [address] | [place] | | | [facility] | [address] | [address] | | | TESTS | | | [...] view image for the detailed interpretation from [employer] results. | CARDIOLOGY | + + + + + + + + | Performing | Address | City/State/Zipcode | Phone Number | | Organization | | | | + + + + + | [facility] | [address] | [place], [place] | | | CARDIOLOGY | [address] | [address] | | + + + + + [...] [facility] | [address] | [place] | | | [facility] | [address] | [address] | | | TESTS | | | [...] (H) | 60 - 99 mg/dL | [facility] - | | | GLUCOSE, | | [...] [facility] | [address] | [place] | | | [facility] | [address] | [address] | | | TESTS | | | [...] [facility] | [address] | [place] [address] | | | SERVICES, CORE | [address] [...] | + + + + + | [facility] | [address] | [place] [address] | | | SERVICES, CORE | [address] [...] | + + + + + | [facility] | [address] [facility] | [place] [address] | | | SERVICES, CORE | [address] [...] | + + + + + | [facility] | [address] | [place] [address] | | | SERVICES, CORE | [address] [...] + | [facility] - | [address] | [place] [address] | | | [place] | | | [...] [facility] | [address] | [place] [address] | | | SERVICES, CORE | [address] [...] [facility] | [address] | [place] [address] | | | SERVICES, CORE | [address] [...] [facility] | [address] | [place] [address] | | | ARON, JANELL | BERTRAM [...] | + + + + + | [facility] | [address] | [place] [address] | | | SERVICES, CORE | [address] [...] | + + + + + | [facility] | [address] | [place] [address] | | | SERVICES, CORE | [address] | | | + + + + + CAPILLARY BLOOD GLUCOSE (NO CHG), POC (03/18/2012 11:54 PM PST) + +---------+ + + + | Component | Value | Ref Range | Performed | Pathologist | | | | | At | Signature | + +---------+ + + + | BLOOD | 108 (H) | 60 - 99 mg/dL | [facility] - | | | GLUCOSE, | | [...] [facility] | [address] | [place] | | | [facility] [place] | [address] | [address] | | | TESTS | | | [...] | + + + + + | [facility] | [address] | [place] [address] | | | SERVICES, JANELL | [address] [...] - [facility] | [address] | [place] | | | [facility] | [facility] | [address] | | | TESTS | | | [...] [facility] | [address] | [place] [address] | | | SERVICES, CORE | [address] [...] | + + + + + | [facility] | [address] | [place] [address] | | | SERVICES, CORE | [address] [...] [facility] | [address] | [place] | | | [facility] [place] | [address] | [address] | | | TESTS | | | | + + + + + OPERATION RECORD (03/18/2012 11:22 AM PST) + + | Transcriptions | + + | Mireal Salgado MD - 03/18/2012 8:38 AM [facility] Date: 03/17/2012ttending | | Surgeon: Mirela Salgado M.D.Event Crew Technician(s): Sandoval | | Bennett Galvez M.D.Preoperative Diagnosis(es):Embolus, [...] | | tolerated the procedure well.MIRELA SALGADO, [facility] Hospitalessor of SurgeryEC[facility] / [id number] / | | [id number] / [id number] / T: 03/17/2012 | |was no pulse. 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 | | | |GLM / HS | |[id number] / [id number] / [id number] / | | | | | + [...] [facility] | [address] | [place] [address] | | | SERVICES, CORE | PARK [...] [facility] | [address] | [place] [address] | | | SERVICES, CORE | PARK [...] | + + + + + | [facility] | [address] | [place] [address] | | | SERVICES, CORE | PARK [...] | + + + + + | [facility] | [address] | [place] [address] | | | SERVICES, CORE | BERTRAM [...] | + + + + + | [facility] | [address] | [place] [address] | | | SERVICES, CORE | BERTRAM [...] | + + + + + | [facility] | [address] [facility] | [place] [address] | | | SERVICES, JANELL | BERTRAM [...] | + + + + + | [facility] | [address] | [place] [address] | | | SERVICES, JANELL | PARK [...] DAVIDAM | [address] | [place], [place] | | | [facility] CARE | [facility] | [address] | | | TESTS | | | [...] (H) | 60 - 99 mg/dL | [facility] - | | | GLUCOSE, | | [...] MARILYN | [address] | [place], [place] | | | [facility]SCAR [facility] OF CARE | [address] | [address] | | | TESTS | | | [...] SANDERS | [address] | [place], [place] | | | [place] [facility] [place] | [facility] | [address] | | | TESTS | | | [...] | + + + + + | [facility] | [address] | [place] [address] | | | SERVICES, CORE | PARK [...] | + + + + + | [facility] | [address] | [place] [address] | | | JANELL SHARP | PARK [...] | + + + + + | [facility] | [address] | [place] [address] | | | JANELL SHARP | BERTRAM [...] | + + + + + | [facility] | [address] | [place] [address] | | | SERVICES, CORE | BERTRAM [...] (H) | 60 - 99 mg/dL | [facility] - | | | GLUCOSE, | | [...] SANDERS | [address] | [place], [place] | | | [place] | [address] | [address] | | | TESTS | | | [...] [facility] | [address] | [place] [address] | | | SERVICES, | [address] [...] [facility] | [address] | [place] [address] | | | SERVICES, | [address] [...] | + + + + + | [facility] | [address] | [place] [address] | | | SERVICES, CORE | BERTRAM [...] MARQUAM | [address] | [place], [place] | | | [facility] CARE | [address] | [address] | | | TESTS | | | [...] | | + +---------+ + + | [facility] DEPARTMENT OF | | | | | [...] SANDERS | [address] | [place], [place] | | | [place] | [address] | [address] | | | TESTS | | | [...] MARQUAM | [address] | [place], [place] | | | OSCAR POINT OF CARE | [address] | [address] | | | TESTS | | | [...] | + + + + + | [facility] | [address] | [place] [address] | | | JANELL SHARP | BERTRAM [...] (H) | 60 - 99 mg/dL | [facility] - | | | GLUCOSE, | | [...] MARILYN | [address] | [place], [place] | | | [facility] CARE | [address] | [address] | | | TESTS | | | [...] | + + + + + | [facility] | [address] | [place] [address] | | | SERVICES, CORE | PARK [...] | + + + + + | [facility] | [address] | [place] [address] | | | SERVICES, CORE | BERTRAM [...] | + + + + + | [facility] | [address] | [place] [address] | | | SERVICES, CORE | PARK [...] [facility] | [address] | [place] [address] | | | SERVICES, CORE | PARK [...] - [facility] | [address] | [place], [place] | | | [facility] | [address] | [address] | | | TESTS | | | [...] SANDERS | [address] | [place], [place] | | | [facility] | [address] | [address] | | | TESTS | | | [...] | | | | | | the [employer] system. | | | | | | [...] | | + +---------+ + + | [facility] DEPARTMENT OF | | | | | [...] Kirstie | | | | | | [place] | | | | + + + [...] SANDERS | [address] | [place], [place] | | | [facility] [place] | [address] | [address] | | | TESTS | | | [...] MARQUAM | [address] | [place] | | | [facility] [place] | [address] | [address] | | | TESTS | | | [...] [facility] | [address] | [place] [address] | | | SERVICES, SPECIAL | PARK [...] [facility] | [address] | [place] [address] | | | SERVICES, SPECIAL | PARK [...] | + + + + + | [facility] | [address] | [place] [address] | | | SERVICES, SPECIAL | BERTRAM [...] [facility] | [address] | [place] [address] | | | SERVICES, SPECIAL | PARK [...] LABORATORY | [address] | [place] [address] | | | SERVICES, CORE | PARK [...] [facility] | [address] | [place] [address] | | | SERVICES, CORE | PARK [...] | + + + + + | [facility] | [address] | [place] [address] | | | SERVICES, CORE | PARK [...] LABORATORY | [address] | [place] [address] | | | JANELL SHARP | BERTRAM [...] MARILYN | [address] | [place], [place] | | | [facility] | [facility] | [address] | | | TESTS | | | [...] | + + + + + | [facility] | [address] | [place] [address] | | | JANELL SHARP | BERTRAM [...] (H) | 60 - 99 mg/dL | [facility] - | | | GLUCOSE, | | [...] MARQU[facility] | [address] | [place], [place] | | | [facility] | [facility] | [address] | | | TESTS | | | [...] SANDERS | [address] | [place] | | | [facility] | [address] | [address] | | | TESTS | | | [...] | | + +---------+ + + | [facility] | | | | | [...] SANDERS | [address] | [place] | | | [facility] | [address] | [address] | | | TESTS | | | [...] + + + + | PRODUCT | [id number] | | [facility] | | | UNIT [...] + + + + | BLOOD | [id number] | | [facility] | | | PRODUCT [...] DEPARTMENT OF | [address] | [place] [address] | | | PATHOLOGY | [address] [...] + + + + | PRODUCT | [id number] | | [facility] | | | UNIT [...] + + + + | BLOOD | [id number] | | [facility] | | | PRODUCT [...] + + + + | [facility] | [address] | [place] [address] | | | PATHOLOGY | [address] [...] | + + + + + | [facility] | [address] | [place] [address] | | | SERVICES, CORE | BERTRAM [...] MARQUAM | [address] | [place] | | | [facility] | [address] | [address] | | | TESTS | | | [...] - MARILYN | [address] | [place], [place] | | | [facility] | [address] | [address] | | | TESTS | | | [...] LABORATORY | [address] | [place] [address] | | | ARON, JANELL | PARK [...] LABORATORY | [address] | [place] [address] | | | SERVICES, CORE | PARK [...] | + + + + + | [facility] | [address] [facility] | [place] [address] | | | ARON, CORE | PARK [...] | | If supplementation does | | [place] | | | | not correct consider [...] if | | | | | | [id number] >400: | | | | | | [...] + | [facility] - | [address] | [place] [address] | | | [place] | | | | + + + [...] LABORATORY | [address] | [place] [address] | | | SERVICES, CORE | BERTRAM [...] | + + + + + | [facility] | [address] [facility] | [place] [address] | | | SERVICES, CORE | BERTRAM [...] | + + + + + | [facility] | [address] | [place] [address] | | | ARON, JANELL | BERTRAM [...] - | | | | | | [place] | | + + + + + + + + | Specimen | + + | Blood - Blood | + + + + + + + | Performing | Address | City/State/Zipcode | Phone Number | | Organization | | | | + + + + + | [facility] | [address] | [place] [address] | | | [place] | | | [...] SANDERS | [address] | [place], [place] | | | [facility] | [facility] | [address] | | | TESTS | | | [...] | + + + + + | [facility] | [address] | [place] [address] | | | JANELL SHARP | BERTRAM [...] + + | [facility] | [address] [facility] | [place] [address] | | | JANELL SHARP | BERTRAM [...] [facility] | [address] | [place] | | | [facility] | [address] | [address] | | | TESTS | | | [...] | + + + + + | [facility] | [address] | [place] [address] | | | SERVICES, CORE | BERTRAM [...] gas. | | | | | | Jsibht-ni-kaiyyx left | | | | | | [...] | | + +---------+ + + | [facility] | | | | | RADIOLOGY | | | | + +---------+ + + [facility] ARTER DUPLEX LOWER EXTREMITY BILATERAL COMPLETE [...] SANDERS | [address] | [place] | | | [facility] | [address] | [address] | | | TESTS | | | [...] % | [facility] | | | | [employer],[address] | | REG UNIV | | | | Jarett Card, [facility] | | PTH - INTFC | | | | [address] | | | | | | [phone][employer]. | | | | | | Kaitlin [...] [facility] | [address] | [place], [place] | | | UNIV PTH - INTFC | | [address] | | + + + + + [...] [facility] | [address] | [place] [address] | | | SERVICES, CORE | BERTRAM [...] | + + + + + | [facility] | [address] | [place] [address] | | | SERVICES, CORE | PARK [...] (H) | 60 - 99 mg/dL | [facility] - | | | GLUCOSE, | | [...] | [facility] | [address] | [place] | | | [facility] | [address] | [address] | | | TESTS | | | [...] | + + + + + | [facility] | [address] | [place] [address] | | | JANELL SHARP | BERTRAM [...] | + + + + + | [facility] | [address] | [place] [address] | | | JANELL SHARP | BERTRAM [...] (H) | 60 - 99 mg/dL | [facility] - | | | GLUCOSE, | | [...] MARILYN | [address] | [place] | | | [facility] | [address] | [address] | | | TESTS | | | [...] [facility] | [address] | [place] [address] | | | SERVICES, CORE | PARK [...] [facility] | [address] | [place] [address] | | | SERVICES, CORE | PARK [...] LABORATORY | [address] | [place] [address] | | | SERVICES, CORE | PARK [...] | + + + + + | [facility] | [address] | [place] [address] | | | SERVICES, CORE | BERTRAM [...] [facility] | [address] | [place] [address] | | | SERVICES, CORE | PARK [...] | + + + + + | [facility] | [address] | [place] [address] | | | SERVICES, CORE | PARK [...] | | | | Final | | [facility] | | | | CULTURE RESULT:No growth [...] + | [facility] - | [address] | [place] [address] | | | [place] | | | [...] | | | Final CULTURE | | [place] | | | | RESULT:Salmonella, | | [...] + | [facility] - | [address] | [place] [address] | | | [place] | | | [...] | + + + + + | [facility] | [address] | [place] [address] | | | SERVICES, CORE | BERTRAM [...] (H) | 60 - 99 mg/dL | [facility] - | | | GLUCOSE, | | [...] SANDERS | [address] | [place] | | | [facility] | [address] | [address] | | | TESTS | | | [...] view image for the detailed interpretation from [employer] results. | CARDIOLOGY | + + + + + + + + | Performing | Address | City/State/Zipcode | Phone Number | | Organization | | | | + + + + + | [facility] | [address] | [place], [place] | | | CARDIOLOGY | [address] | [address] | | + + + + + [...] [facility] | [address] | [place] [address] | | | SERVICES, CORE | [address] | | | + + + + + CULTURE, BLOOD BACTI & YEAST [facility] (03/12/2012 9:50 PM PST) + + + [...] | + + + + + | [facility] | [address] | [place] [address] | | | SERVICES, CORE | BERTRAM [...] [facility] | [address] | [place] [address] | | | SERVICES, CORE | PARK [...] LABORATORY | [address] | [place] [address] | | | ARON, JANELL | [address] | | | + + + [...] SANDERS | [address] | [place] | | | [facility] | [address] | [address] | | | TESTS | | | [...] [facility] | [address] | [place] [address] | | | SERVICES, CORE | BERTRAM [...] [facility] | [address] | [place] [address] | | | SERVICES, CORE | PARK [...] [facility] | [address] | [place] [address] | | | SERVICES, | [address] [...] | + + + + + | [facility] | [address] [facility] | [place] [address] | | | ARON, | BERTRAM GRANT [...] | + + + + + | [facility] | [address] | [place] [address] | | | SERVICES, JANELL | PARK [...] [facility] | [address] | [place] [address] | | | SERVICES, CORE | PARK [...] | + + + + + | [facility] | [address] | [place] [address] | | | SERVICES, JANELL | BERTRAM [...]
--- OUTSIDE RECORDS SUMMARY | ~2019-11-05 | XMS | Encounter Summary ---
Demographics + + + | Address | [address] | | | [place] [address] | + + + | Home Phone [...] [place], [place] | | | | | [address] | | + + + + + | Cami Sawyer | ECON | Unknown | | + + + + + Care Team Providers + +------+ + | Care Trapper Animal Name | Role | Phone | + +------+ + | rAen Rose DO | PCP | | + +------+ + Encounter Details +--------+ + + + + | Date | Type | Department | Care Team | Description | +--------+ + + + + | 05/22/ | Telephone | Trauma Emergency | Rosita Perez, | | | 2015 | | General Surgery at | ONLINE ADVERTISING MANAGER [address] | | | | | [facility] [address] | | | | | [address] | [place], [place] | | | | | Physicians [place], | [address] | | | | | 2nd Floor | [phone] | | | | | [place], [place] | | | | | | [address] | | | | | | [phone] | | | +--------+ + + + [...]
--- OUTSIDE RECORDS SUMMARY | ~2019-11-05 | XMS | Encounter Summary ---
Demographics + + + | Address | [address] | | | [place] [address] | + + + | Home Phone | | + + + | Preferred Language | Unknown | + + + | Marital Status | | + + + | Scientology Affiliation | Unknown | + + + | Race | Unknown | + + + | Ethnic Group | Unknown | + + + Author + + + | Author | [facility] | | | and [place] | + + + | Organization | [facility] | | [...] Team Providers + +------+ + | Care Grinding Supervisor Name | Role | Phone | [...] + + | 03/15/ | Telephone | [facility] | Severo, | Appointment | | 2019 | | GENERAL SURGERY [address] | [address] | | | | | [address] | [address] | | | | | [place], [place] | [place] [address] | | | | | [address] | [phone] | | | | | [phone] | | | +--------+ + + + [...] Miscellaneous Notes Telephone Encounter - Dulce Marquez, Administrative Sales Assistant - 03/15/2019 9:17 AM Wendy mcconnell returned my call. Patient states she in in town from [place] and would like to be seen ashley bautista. Informed patient that JENARO Tran is out of office today. I offered the next destin renee appointment 03/27/19 at 1440. Patient accepted. Patient voiced her understanding and gratitude. 9:1 9 AM PSTdocumented in this encounter Plan of [...]
--- OUTSIDE RECORDS SUMMARY | ~2019-11-05 | XMS | Encounter Summary ---
Demographics + + + | Address | [address] | | | [place] [address] | + + + | Home Phone | | + + + | Preferred Language | Unknown | + + + | Marital Status | | + + + | Roman Catholic Affiliation | NRP | + + [...] [place], [place] | | | | | [address] | | + + + + + | Cami Sawyer | ECON | Unknown | | + + + + + Care Team Providers + +------+ + | Care Sofa Inspector Name | Role | Phone | [...] | | 2016 | | Center at [facility] [address] | [address] [facility] | [facility] | | | | [facility] | [facility] | | | | | [facility] and | [place] [address] | | | | | [place] [address] | [phone] | | | | | [place], [place] | | | | | | [address] | | | | | | [phone] | | | +--------+ + + + [...]
--- OUTSIDE RECORDS SUMMARY | ~2019-11-05 | XMS | Encounter Summary ---
Demographics + + + | Address | [address] | | | [place] [address] | + + + | Home Phone | | + + + | Preferred Language | Unknown | + + + | Marital Status | | + + + | Restorationism Affiliation | Unknown | + + + | Race | Unknown | + + + | Ethnic Group | Unknown | + + + Author + + + | Author | [facility] | | | and [place] | + + + | Organization | [facility] | | | [...] Team Providers + +------+ + | Care Electrician Machine Shop Name | Role | Phone | [...] Provider Unknown | | | | | [place], [place] | [phone] | | | | | [address] | | | | | | [phone] | | | +--------+ + + + [...]
--- OUTSIDE RECORDS SUMMARY | ~2019-11-05 | XMS | Encounter Summary ---
Demographics + + + | Address | [address] | | | [place] [address] | + + + | Home Phone [...] Team Providers + +------+ + | Care Shrink Pit Supervisor Name | Role | Phone | + +------+ + PCP | Unavailable | + +------+ + Encounter Details +--------+ + + + + | Date | Type | Department | Care Team | Description | +--------+ + + + + | 10/09/ | Hospital | [facility] | Conversion | | | 2016 | Encounter | CENTER [facility] | Transaction, | | | | | CLINIC [address] | Provider Unknown | | | | | [place], [place] | | | | | | [address] | (Fax) | | | | | [phone] | | | +--------+ + + + [...] 10/10/151905 Date of Service: 10/10/151904 Status: Signed Cardiovascular Lab Director: Michael Francis RN (Registered Nurse) HGB 9.2/Platelets [address] Adams. No further recommendations. onver roshan Transaction, Provider Unknown - 10/10/2015 5:15 PM PDT Pre-Procedure Instructions by Laine Bryant RN at 10/10/151714 Author: Laien Bryant RN Service: (none) Author Type: Registered Nurse Filed: 10/10/151715 Date of Service: 10/10/151714 Status: Signed Cardiovascular Lab Director: Laine Bryant RN (Registered Nurse) Called and spoke to Dr. Veliz anesthesia re: her chest xray. She states via telephone, may proceed with planned surgery onver roshan Transaction, Provider Unknown - 10/10/2015 2:40 PM PDT Pre-Procedure Instructions by Laine Bryant RN at 10/10/15 1440 Author: Laine Bryant RN Service: (none) Author Type: Registered Nurse Filed: 10/10/15 1449 Date of Service: 10/10/151439 Status: Addendum Cardiovascular Lab Director: Laine Bryant RN (Registered Nurse) Related Notes: Original Note by Laine Bryant RN (Registered Nurse) filed at 10/10/15 1441 AHA guidelines for non cardiac, non emergent surgery followed. METS score greater than 4. D oes not see a station mechanic helper. Denies any chest pain, SOB, or any [...] to [facility] where she lives in [place], [place]. Pt beth he is present during [...] Conversion - 11/23/2018 9:20 PM PDT MACKENZIE [id number] years FemaleXR | | CHEST 2 VIEW [...] | | | at [facility];[address] [place] [address] | | | | | | Blvd;[place] [address] | | | | + + + [...] [place] | | | | | | [address] | | | | + + +---- + + + | Non- | 4.44Comment: Testing | 3.7 0 - 5.10 | EXTERNAL | | | Red Blood | performed at [facility], [address] | M/u L | LAB | | | Cells | [facility] [place], | | | | | [place] | [place] [address] | | | | + + +---- + + + | Hemoglobin | 9.2 (L)Comment: Testing | 11. 3 - 15.5 | EXTERNAL | | | | performed at [facility], [address] | g/d L | LAB | | | | [place] [place], | | | | | | [place] [address] | | | | + + +---- + + + | Hematocrit, | 33.1 (L)Comment: RESULT | 34. 0 - 46.0 % | EXTERNAL | | | POC | VERIFIEDTesting | | LAB | | | | performed at [facility], [address] | | | | | | [place], | | | | | | [place] [address] | | | | + + +---- + + + | MCV | 74.6 (L)Comment: Testing | 80. 0 - 100.0 fl | EXTERNAL | | | | performed at [facility], [address] | | LAB | | | | [address] [place], | | | | | | [place] [address] | | | | + + +---- + + + | MCH | 20.7 (L)Comment: Testing | 27. 0 - 34.0 pg | EXTERNAL | | | | performed at [facility], [address] | | LAB | | | | [address] [place], | | | | | | [place] [address] | | | | + + +---- + + + | MCHC | 27.7 (L)Comment: Testing | 32. 0 - 35.5 | EXTERNAL | | | | performed at [facility], [address] | g/d L | LAB | | | | [address] [place], | | | | | | [place] [address] | | | | + + +---- + + + | RDW-CV | 62.6 (H)Comment: Testing | 37 - 53 fl | EXTERNAL | | | | performed at [facility], [address] | | LAB | | | | [address] [place], | | | | | | [place] [address] | | | | + + +---- + + + | Platelet | 538 (H)Comment: Testing | 150 - 400 K/uL | EXTERNAL | | | Count | performed at [facility], [address] | | LAB | | | Plasma | [place], | | | | | | [place] [address] | | | | + + +---- + + + | MPV | 7.9Comment: Testing | fl | EXTERNAL | | | | performed at [facility], [address] | | LAB | | | | [place], | | | | | | [place] [address] | | | | + + +---- + + + | Differentia | MANUALComment: Testing | | EXTERNAL | | | l Type | performed at [facility], [address] | | LAB | | | | [place] [place], | | | | | | [place] [address] | | | | + + +---- + + + | Nucleated | 4 (H)Comment: Testing | /10 0WBC | EXTERNAL | | | Red Blood | performed at [facility], [address] | | LAB | | | Cells | [place], | | | | | | [place] [address] | | | | + + +---- + + + | Segmented | 59Comment: Testing | % | EXTERNAL | | | Neutrophils | performed at [facility], [address] | | LAB | | | Manual | [place], | | | | | | [place] [address] | | | | + + +---- + + + | % Bands | 1Comment: Testing | % | EXTERNAL | | | | performed at [facility], [address] | | LAB | | | | [place], | | | | | | [place] [address] | | | | + + +---- + + + | Lymphocytes | 33Comment: Testing | % | EXTERNAL | | | Manual | performed at [facility], [address] | | LAB | | | | [address] [place], | | | | | | [place] [address] | | | | + + +---- + + + | Monocytes | 7Comment: Testing | % | EXTERNAL | | | Manual | performed at [facility], [address] | | LAB | | | | [place], | | | | | | [place] [address] | | | | + + +---- + + + | Absolute | 11.45 (H)Comment: | 1.9 0 - 7.40 | EXTERNAL | | | Neutrophils | Testing performed at | K/u L | LAB | | | | [facility], [address] | | | | | | [place] | | | | | | [address] | | | | + + +---- + + + | Bands | 0.19Comment: Testing | 0.0 0 - 0.20 | EXTERNAL | | | Manual | performed at [facility], [address] | K/u L | LAB | | | | [place], | | | | | | [place] [address] | | | | + + +---- + + + | Absolute | 6.40 (H)Comment: Testing | 1.0 0 - 3.90 | EXTERNAL | | | Lymphocytes | performed at [facility], [address] | K/u L | LAB | | | | [address] [place], | | | | | | [place] [address] | | | | + + +---- + + + | Absolute | 1.36 (H)Comment: Testing | 0.0 0 - 0.80 | EXTERNAL | | | Monocytes | performed at [facility], [address] | K/u L | LAB | | | | [address], | | | | | | [place] [address] | | | | + + +---- + + + | Platelet | INCREASEDComment: | | EXTERNAL | | | Estimate | Testing performed at | | LAB | | | | [facility], [address] | | | | | | [place], [place] | | | | | | [address] | | | | + + +---- + + + | RBC | 2+Comment: | | EXTERNAL | | | Morphology | ANISO1+POIK1+POLY3+HYPO2 | | LAB | | | | +MICRO1+TARGETNORMAL PLT | | | | | | MORPHTesting performed | | | | | | at [facility], [address] | | | | | | [place], | | | | | | [place] [address] | | | | | |3+ | | | | | |HYPO | | | | | |2+ | | | | | |MICRO | | | | | |1+ | | | | | |TARGET | | | | | |NORMAL PLT MORPH | | | | | |Testing performed at [facility], [address] [place] [address] [place], [place] [address] | | | | | | | | | | + + +---- + + + | Differentia | SLIDE REFERRED TO | | EXTERNAL | | | l Comments | PATHOLOGIST FOR REVIEW | | LAB | | | | AND COMMENTComment: | | | | | | Testing performed at | | | | | | [facility], [address] [place] [address] | | | | | | [place] | | | | | | [address] | | | | + + +---- [...] LAB | | | | performed at [facility], [address] | | | | | | [place], | | | | | | [place] [address] | | | | + + + + + + | K | 4.7Comment: SPECIMEN | 3.5 - 4.9 | EXTERNAL | | | | SLIGHTLY | mmol/L | LAB | | | | HEMOLYZEDTesting | | | | | | performed at [facility], [address] | | | | | | [address], | | | | | | [place] [address] | | | | + + + + + + | Cl | 109Comment: Testing | 99 - 109 mmol/L | EXTERNAL | | | | performed at [facility], [address] | | LAB | | | | [address], | | | | | | [place] [address] | | | | + + + + + + | CO2 | 23Comment: Testing | 23 - 32 mmol/L | EXTERNAL | | | | performed at [facility], [address] | | LAB | | | | [address], | | | | | | [place] [address] | | | | + + + + + + | Anion Gap | 13Comment: Testing | 5 - 20 mmol/L | EXTERNAL | | | | performed at [facility], [address] | | LAB | | | | [address], | | | | | | [place] [address] | | | | + + + + + + | Glucose, | 89Comment: SPECIMEN | 65 - 99 mg/dL | EXTERNAL | | | Fasting | SLIGHTLY | | LAB | | | | HEMOLYZEDTesting | | | | | | performed at [facility], [address] | | | | | | [address], | | | | | | [place] [address] | | | | + + + + + + | BUN | 21Comment: Testing | 8 - 25 mg/dL | EXTERNAL | | | | performed at [facility], [address] | | LAB | | | | [address], | | | | | | [place] [address] | | | | + + + + + + | Creatinine | 0.9Comment: SPECIMEN | 0.50 - 1.00 | EXTERNAL | | | | SLIGHTLY | mg/dL | LAB | | | | HEMOLYZEDTesting | | | | | | performed at [facility], [address] | | | | | | [address], | | | | | | [place] [address] | | | | + + + + + + | BUN/Creatin | 23Comment: Testing | | EXTERNAL | | | ine Ratio | performed at [facility], [address] | | LAB | | | | [address], | | | | | | [place] [address] | | | | + + + + + + | Calcium | 9.0Comment: Testing | 8.5 - 10.5 | EXTERNAL | | | | performed at [facility], [address] | mg/dL | LAB | | | | [address], | | | | | | [place] [address] | | | | + + + [...] [place], | | | | | | [place] [address] | | | | + + + [...]
--- OUTSIDE RECORDS SUMMARY | ~2019-11-05 | XMS | Encounter Summary ---
Demographics + + + | Address | [address] | | | [place] [address] | + + + | Home Phone | | + + + | Preferred Language | Unknown | + + + | Marital Status | | + + + | Adventism Affiliation | NRP | + + + | Race | White | + + + | Ethnic Group | Not or | + + + Author + + + | Author | [facility] | + + + | Organization | [facility] | + + + | Address | Unknown | + + + | Phone | Unavailable | + + + Support + + + + + | Name | Relationship | Address | Phone | + + + + + | Kole Willingham | [place] | [address] | | | | | [place], [place] | | | | | [address] | | + + + + + | Cami Sawyer | ECON | Unknown | | + + + + + Care Team Providers + +------+ + | Care Operations And Maintenance Specialist Name | Role | Phone | [...] | 2011 | Encounter | [address] [facility] | | | | | | [facility] | | | | | | [facility] | | | | | | [place], [place] | | | | | | [address] | | | | | | [phone] | | | +--------+ + + + [...] mouth | 3 Tab | 0 | 12/26/20 | | | Oral tablet | once [...]
--- OUTSIDE RECORDS SUMMARY | ~2019-11-05 | XMS | Encounter Summary ---
Demographics + + + | Address | [address] | | | [place] [address] | + + + | Home Phone | | + + + | Preferred Language | Unknown | + + + | Marital Status | | + + + | Scientologist Affiliation | Unknown | + + + [...] Team Providers + +------+ + | Care Workforce Planning Analyst Name | Role | Phone | [...] Provider Unknown | | | | | [place], [place] | [phone] | | | | | [phone] | | | | | | [phone] | | | +--------+ + + + [...]
--- OUTSIDE RECORDS SUMMARY | ~2019-11-05 | XMS | Encounter Summary ---
Demographics + + + | Address | [address] | | | [place] [address] | + + + | Home Phone [...] [place], [place] | | | | | [address] | | + + + + + | Cami Sawyer | ECON | Unknown | | + + + + + Care Team Providers + +------+ + | Care Floriculturist Name | Role | Phone | + [...] 04/24/ | Surgery | 6A Intra Op 3181 | Jf Wiseman, | RE-OPEN LAPAROTOMY, | | 2015 | | OPAL Howard Romeo Kristen | [address] [facility] | evacuation of | | | | Rd [facility] | [facility] [address] | hematoma, control of | | | | Hospital Admitting | [place], [place] | retroperitonieal | | | | Desk Located on the | [phone] | hemorage, lysis of | | | | 9th floor | [phone] | adhesions, wound vac | | | | [place], [place] | | placement, and | | | | [phone] | | abdominal wall | | | [...] might be different f rom the original. [facility] DEPARTMENT OF SURGERY EMERGENCY GENERAL SURGERY [...] She will follow up with her Sunshine cisenros for additional dosing instructions. A Dobbhoff feeding tube was placed for nutritio n. She continues with dysphagia and will need ongoing Speech therapy. [facility] however the following day was transferred back to ICU in re spiratory distress. She received IV diuresis with improved and transferred to [facility] on 05/04/14. She continued to progress and is discharged to long term facility for critical access hospital care. Mackenzie Hartley is discharged in [...] 100mls three times a day. Destination: Destination: [facility] Thank you for the opportunity to [...] might be different f rom the original. [facility] DEPARTMENT OF SURGERY EMERGENCY [...] s while anticoagulated with warfarin transferred to [facility] from [facility] for hanh gement of retroperitoneal bleed. 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 S he [...] thrombosis while anticoagulated with warfarin transferred to [facility] from [facility] for management of retroperitoneal bleed. She is [...] know if she wants to see the [facility] GI team - Stage I pressure [...] recommending VIBRA since would be close to [facility] and she would benefit for aggres [...] with complication 03/12/2012 Jean-Claude Albrecht D.M.D., M.D. [facility] [address] [place] [id number] This assessment and plan was formulated both [...] MD - 05/11/2014 8:51 AM PST . 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 S he [...] thrombosis while anticoagulated with warfarin transferred to [facility] from [facility] for management of retroperitoneal bleed. She is [...] know if she wants to see the [facility] GI team - Stage I pressure [...] recommending VIBRA since would be close to [facility] and she would benefit for aggres [...] with complication 03/12/2012 Jean-Claude Albrecht D.M.D., M.D. [facility] [address] [place] [address] This assessment and plan was formulated both [...] being active. Pt's has been at [facility] supporting her. Pt is not confucianism but appreciates support. Intervention: Provided a listening presence and explored pt's anxieties, worries and hopes. Plan: Spiritual care remains available. 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 S he [...] thrombosis while anticoagulated with warfarin transferred to [facility] from [facility] for management of retroperitoneal bleed. She is [...] know if she wants to see the [facility] GI team - Stage I pressure [...] recommending JJ since would be close to [facility] and she would benefit for marcela [...] intestine with complication 03/12/2012 ANDREW VINCENT MD [facility] [address] [facility] [place] [address] This assessment and plan was [...] this note might be different from the [facility]. 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 S he [...] thrombosis while anticoagulated with warfarin transferred to [facility] from [facility] for management of retroperitoneal bleed. She is [...] know if she wants to see the [facility] GI team - Stage I pressure [...] recommending SONIAA since would be close to [facility] and she would benefit for aggres [...] intestine with complication 03/12/2012 ANDREW VINCENT MD [facility] [address] [facility] [place] [address] This assessment and plan was [...] note might be different from the orig [facility]. 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 S he [...] TROPONIN Imaging No new Cultures BLOOD CULTURE [facility] (no units) Date Value Range Status [...] thrombosis while anticoagulated with warfarin transferred to [facility] from [facility] for management of retroperitoneal bleed. She is [...] know if she wants to see the [facility] GI team - Stage I pressure [...] recommending SONIAA since would be close to [facility] and she would benefit for marcela [...] intestine with complication 03/12/2012 ANDREW VINCENT MD [facility] [address] [place] [address] This assessment and plan was formulated both [...] while anticoagulated with warfar in transferred to [facility] from [facility] for management of retroperitoneal bleed. S he [...] TROPONIN Imaging No new Cultures BLOOD CULTURE [facility] (no units) Date Value Range Status [...] thrombosis while anticoagulated with warfarin transferred to [facility] from [facility] for management of retroperitoneal bleed. 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 S he [...] TROPONIN Imaging No new Cultures BLOOD CULTURE [facility] (no units) Date Value Range Status [...] thrombosis while anticoagulated with warfarin transferred to [facility] from [facility] for management of retroperitoneal bleed. She is [...] continued DHT,TF - Diet: NPO - per SHADE BANDER, high risk of aspiration - continue ice [...] intestine with complication 03/12/2012 ANDREW VINCENT MD [facility] [address] [place] [address] This assessment and plan was [...] note might be different from the orig [facility]. 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 S he [...] TROPONIN Imaging No new Cultures BLOOD CULTURE [facility] (no units) Date Value Range Status [...] thrombosis while anticoagulated with warfarin transferred to [facility] from [facility] for management of retroperitoneal bleed. She is [...] intestine with complication 03/12/2012 ANDREW VINCENT MD [facility] [address] [place] [phone] This assessment and plan was formulated both [...] the resident s note. PHIL VARMA MD [facility] [address] [facility] [place] [address] Rosa Sauer MD - 05/04/2014 8:26 AM [...] at referring hospital. She was transferred to [facility] f or active hemorrhage and underwent IR [...] rounds. Rosa Reynoso, R2 SICU/Trauma Personal pager: [phone] Team pager: [phone] Angeles Acevedo MD - 05/04/2014 7:08 AM PST [facility] DEPARTMENT OF SURGERY EGS ICU Progress Note Division of Trauma and Critical Care ID: Mackenzie Hartley is a 58 year old female with COPD, Crohn's disease, chronic pain, and 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 while anticoagulated with warfarin transferre d to [facility] from [facility] for management of retroperitoneal bleed. She is [...] thrombosis while anticoagulated with warfarin transferred to [facility] from [facility] for management of retroperitoneal bleed. She has required repeated transfers to ICU for respiratory status. She has been diuresed ap propriately while in the ICU and O2 needs have decreased significantly. Will transfer to [facility] or, but need to keep [...] Hannah MD General Surgery Resident, R3 Pager [phone] [facility] [address] [place] [address] Jf Jones MD - 05/03/2014 9:38 AM [...] - TF at goal, + BM Dysphagia: SHADE BANDER following- remains NPO Anasarca: compression socks,. Goal [...] Call team 01/11 for questions: Team Pager [phone] ATTENDING ADDENDUM: I saw and examined Mackenzie [...] Erin Christensen PA-C. Jf Wiseman MD FACS film laboratory technician Division of Trauma, Critical Care, and Acute Care Surgery [phone] Elda Emmanuel MD - 05/03/2014 3:49 AM PST EMERGENCY GENERAL SURGERY ICU PROGRESS NOTE: Attending Physician: Jf Wiseman MD 05/03/2014 ID: Mackenzie Hartley is a 58 year old female with COPD, Crohn's disease, chronic pain, and coagulopa thy resulting in splenic artery thrombosis while anticoagulated with warfarin transferred to [facility] from [facility] for management of retroperitoneal bleed. She is [...] thrombosis while anticoagulated with warfarin transferred to [facility] from [facility] for management of retroperitoneal bleed. 1. Neuro: [...] this patient encounter. Elda Glez MD Pager [phone] Plastic Surgery R2 [facility] Diagnoses: 555.2 Crohn's disease of both [...] holding Q6W Remicade- will consult hematology in [facility] regarding of timing of resuming remicade Severe malnutrition: - TF at goal, + BM, Dysphagia: SHADE BANDER following- remains NPO Anasarca: compression socks,. Goal [...] Call team 01/11 for questions: Team Pager [phone] ATTENDING ADDENDUM: I saw and examined Mackenzie [...] Marge Harris PA-C. Jf Wiseman MD FACS film laboratory technician Division of Trauma, Critical Care, and Acute Care Surgery [phone] ngeles Hannah MD - 05/02/2014 6:55 AM PST [facility] DEPARTMENT OF SURGERY EGS ICU Progress Note Division of Trauma and Critical Care ID: Mackenzie Hartley is a 58 year old female with COPD, Crohn's disease, chronic pain, and 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 while anticoagulated with warfarin transferre d to [facility] from [facility] for management of retroperitoneal bleed. She is [...] thrombosis while anticoagulated with warfarin transferred to [facility] from [facility] for management of retroperitoneal bleed. Neuro: Minimize [...] Hannah MD General Surgery Resident, R3 Pager [phone] [place] [phone] Kristina, Angeles Hanna MD - 05/02/2014 2:14 [...] Hannah MD General Surgery Resident, R3 Pager [phone] Jean-Claude Chaidez DMD, MD - 05/01/2014 10:36 AM PST [facility] DEPARTMENT OF SURGERY EGS Progress Note ID: Mackenzie Hartley is a 58 year old female with COPD, Crohn's disease, chronic pain, and 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 while anticoagulated with warfarin transferre d to [facility] from [facility] for management of retroperitoneal bleed. She is [...] thrombosis while anticoagulated with warfarin transferred to [facility] from [facility] for management of retroperitoneal bleed. Overall, she is improving. However, remains tachycardic with leukocytosis - WBC [address] 05/01 showed - moderate ascites and pleural effusions and hematoma. Neuro: dilaudid IV PRN Speech: following continue daily to eval swallow CV: HD stable L [employer] PROCESSOR PSA resolved Continue IV lasix today 20 [...] acute care hospitalization Jean-Claude Albrecht D.M.D., M.D. [facility] [place] [address] [place] [address] Jf Jones MD - 04/30/2014 11:08 AM [...] at referring hospital. She was transferred to [facility] fo r active hemorrhage and underwent IR [...] malnutrition: - pulled DHT- refusing replacement. Await SHADE BANDER eval if passes swallow will give chance to prove adequate po intake. Expect will require TFs again Dysphagia: await SHADE BANDER eval today. Cont meds and feed via [...] Call team 01/11 for questions: Team Pager [phone] ATTENDING ADDENDUM: I saw and examined Mackenzie [...] and exclusive of time sp ent by Magre Harris PA-C. Jf Wiseman MD FACS film laboratory technician Division of Trauma, Critical Care, and Acute Care Surgery [phone] Angeles Acevedo MD - 04/30/2014 1:18 AM PST [facility] DEPARTMENT OF SURGERY EGS ICU Progress Note Division of Trauma and Critical Care ID: Mackenzie Hartley is a 58 year old female with COPD, Crohn's disease, chronic pain, and 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 while anticoagulated with warfarin transferre d to [facility] from [facility] for management of retroperitoneal bleed. She is [...] thrombosis while anticoagulated with warfarin transferred to [facility] from [facility] for management of retroperitoneal bleed. Overall, she is improving. However, remains tachycardic with leukocytosis -- difficult to t ease out if this is secondary to asplenia. Will obtain CT abd pelvis today to clarify. Neuro: dilaudid IV PRN and intermittent versed for sedation CV: HD stable L [employer] PROC[employer]OR PSA resolved Pulm: titrate to O2 >92% [...] Hannah MD General Surgery Resident, R3 Pager [phone] [facility] [address] [place] [address] Aravind Morales MD - 04/29/2014 11:43 AM PSTICU Attending: I saw and examined Mackenzie Hartley ([id number]) with Erin Christensen PA-C on 04/29/14 and [...] documented by valentin HASTINGS. Aravind Massey MD Aerospace Medicine Physician Trauma, Critical Care & Acute Care Surgery [...] at referring hospital. She was transferred to [facility] fo r active hemorrhage. Hospital Day #6 [...] resolving cont current H2O via DHT Dysphagia: SHADE BANDER consulted, ice chips only. Cont meds and [...] Call team 01/11 for questions: Team Pager [phone] Chelly Blum MD,M PH - 04/28/2014 3:03 [...] at referring hospital. She was transferred to [facility] fo r active hemorrhage. Hospital Day #5 [...] Hyernatremia: resolving, reduce H2O to 30ml/hr Dysphagia: SHADE BANDER consulted, ice chips only. Cont meds and [...] Call team 01/11 for questions: Team Pager [phone] Angeles Acevedo MD - 04/28/2014 5:18 AM PST [facility] DEPARTMENT OF SURGERY EGS ICU Progress Note Division of Trauma and Critical Care ID: Mackenzie Hartley is a 58 year old female with COPD, Crohn's disease, chronic pain, and 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 while anticoagulated with warfarin transferre d to [facility] from [facility] for management of retroperitoneal bleed. She is s/p ex lap, splenectomy, and packing with lap pads at OSH and from reopening of laparotomy, evacua tion of 2-3 L of intraabdominal hematoma, closure of open abdomen SUBJECTIVE: Extubated, neurologically doing much better. 3 L NC Underwent successful thrombin injection of L [employer] pseudoaneurysm by IR 04/26 MEDICATIONS: Current facility-administered [...] thrombosis while anticoagulated with warfarin transferred to [facility] from [facility] for management of retroperitoneal bleed. Neuro: dilaudid IV PRN and intermittent versed for sedation CV: HD stable Per vascular: arterial duplex of L [employer] PROCESSOR to assess for stability of PSA shows [...] Hannah MD General Surgery Resident, R3 Pager [phone] [facility] [address] [address] Xin Irizarry M D - 04/27/2014 11:55 [...] imaging and laboratory study results EPIC DEPARTMENT: [id number] - [facility] Place of Service: - Inpatient Date of Service: 04-27-2014 Modifiers: GC - Resident Involved Suggested CPT: 03500 - Initial, Comp; Mod complex 50 min XIN AGEE MD [facility] [address] [place] [address] wRudy powers Do - 04/27/2014 11:55 AM PST Hematology Consult Progress Note Primary Service: EGS Primary Attending: Jf Wiseman MD Hospital Length of Stay: 4 Interval Events: - extubated - thrombin injection to [employer] PROC[employer]OR pseudoaneurysm - heparin gtt started last night Subjective: Patient is unable to provide history as she remains encephalopathic. Did speak with her , who confirmed history obtained in initial heme consult note. States she givens s been on warfarin since her 2011 [facility] admission with no known thrombotic events [...] assessme nt and plan. Rudy Sarmiento, DO [facility] Internal Medicine PGY3 Pager [phone] Mriela Josue MD - 04/27/2014 10:49 AM PST [facility] Department of Surgery Progress Note Author: [...] underwent successful thrombin injection of the left [employer] pseudoaneurysm by IR last night. Heparin restarted [...] ultraso und guided thrombin injection of left [employer] PROCESSOR pseudoanuerysm. Will order arterial duplex of left [employer] PROCESSOR to assess for stability of pseudoaneurysm Monitor [...] - hemorrhage vs HCAP LUCY MARKS MD [facility] [address] [place] [address] This assessment and plan was formulated both independently and in conjunction with the [facility] ular Surgery Team as well as the attending provider of record above regarding management of this patient and their medical issues. It is accurate to the best of my knowledge, and is s ubject to modification based on clinical developments, new data, or final imaging results. [facility] staff I saw and evaluated the patient. I agree with the findings and the plan of care as jannie hair in the resident s note. Left femoral pseudoaneurysm appears resolved. Stable from [facility] standpoint. No further imaging required unless clinical status changes. Mirela Thompson M.D. [facility] Vascular Surgery [address] [facility] [place] [address] Email: [email or web address] Jf Jones MD - 04/27/2014 8:03 AM [...] at referring hospital. She was transferred to [facility] fo r active hemorrhage. Hospital Day #4 [...] H2O Hyernatremia: water 100ml/hr via DHT Dysphagia: SHADE BANDER consulted, ice chips only JULIANE: ATN from [...] Call team 01/11 for questions: Team Pager [phone] ATTENDING ADDENDUM: I saw and examined Mackenzie [...] Erin Christensen PA-C. Jf Wiseman MD FACS film laboratory technician Division of Trauma, Critical Care, and Acute Care Surgery [phone] ankerElda MD - 04/27/2014 4:52 AM PST EMERGENCY GENERAL SURGERY ICU PROGRESS NOTE: Attending Physician: Jf Wiseman MD 04/27/2014 ID: Mackenzie Hartley is a 58 year old female with COPD, Crohn's disease, chronic pain, and coagulopa thy resulting in splenic artery thrombosis while anticoagulated with warfarin transferred to [facility] from [facility] for management of retroperitoneal bleed. She is [...] HR EVENTS: - Incidentally found to have [employer] pseudoaneurysm, injected with thrombin by IR - [...] thrombosis while anticoagulated with warfarin transferred to [facility] from [facility] for management of retroperitoneal bleed. Neuro: oxy [...] this patient encounter. Elda Glez MD Pager [phone] Plastic Surgery R2 [facility] Diagnoses: 555.2 Crohn's disease of both [...] Attending:Dr. Lenny Calhoun MD (Fellow)/pager: Dr. Vang [phone] Medications Procedure Meds: Dilaudid IV 0.5mg Midazolam [...] at referring hospital. She was transferred to [facility] fo r active hemorrhage. Hospital Day #4 [...] Call team 01/11 for questions: Team Pager [phone] Angeles Acevedo MD - 04/26/2014 5:24 AM PST [facility] DEPARTMENT OF SURGERY EGS ICU Progress Note Division of Trauma and Critical Care ID: Mackenzie Hartley is a 58 year old female with COPD, Crohn's disease, chronic pain, and 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 while anticoagulated with warfarin transferre d to [facility] from [facility] for management of retroperitoneal bleed. She is [...] thrombosis while anticoagulated with warfarin transferred to [facility] from [facility] for management of retroperitoneal bleed. Neuro: dilaudid [...] Hannah MD General Surgery Resident, R3 Pager [phone] [facility] & [address] [place] [address] Nithya Andres MD - 04/25/2014 6:40 AM PSTTSICU Attending 04/25/14 58 yo woman critically ill with complex surgical and medical history, transferred to [facility] w ith intraabdominal and retroperitoneal hemorrhage [...] Call team 01/11 for questions: Team Pager [phone] Angeles Acevedo MD - 04/25/2014 4:39 AM PST [facility] DEPARTMENT OF SURGERY EGS ICU Progress Note Division of Trauma and Critical Care ID: Mackenzie Hartley is a 58 year old female with COPD, Crohn's disease, chronic pain, and 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 while anticoagulated with warfarin transferre d to [facility] from [facility] for management of retroperitoneal bleed. She is [...] thrombosis while anticoagulated with warfarin transferred to [facility] from [facility] for management of retroperitoneal bleed. Neuro: dilaudid [...] Hannah MD General Surgery Resident, R3 Pager [phone] [facility] [place] [id number] [facility] [address] ich Redding MD - 04/24/2014 9:21 AM [...] extubate Initial surgical contact: Miladis at pager [phone] Nithya Andres MD - 04/24/2014 5:25 AM [...] exploration at referring hospital. IR embolization at [facility]. Hospital Day #1 ICU Day #2 [...] Call team 01/11 for questions: Team Pager [phone] Angeles Acevedo MD - 04/24/2014 2:04 AM PST [facility] DEPARTMENT OF SURGERY EGS Consult Progress Note Division of Trauma and Critical Care ID: Mackenzie Hartley is a 58 year old female with COPD, Crohn's disease, chronic pain, and 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 while anticoagulated with warfarin transferre d to [facility] from [facility] for management of retroperitoneal bleed. She is [...] thrombosis while anticoagulated with warfarin transferred to [facility] from [facility] for management of retroperitoneal bleed. She is [...] Hannah MD General Surgery Resident, R3 Pager [phone] [facility] [place] [address] [place] [address] Rudy Parker M D - 04/23/2014 5:07 PM PSTBRIEF INTERVENTIONAL RADIOLOGY PROCEDURE NOTE DATE: 04/23/2014 5:07 PM PROCEDURE: Pelvic angiography with glue embolization PRE-PROCEDURE DIAGNOSIS: Retroperitoneal hematoma POST-PROCEDURE DIAGNOSIS: Same IR STAFF: Lenny IR FELLOW: Ciera ACCESS: L [employer] PROC[employer]OR MEDICATIONS: Fentanyl IV 150 mcg Midazolam IV [...] | + + + + + | [facility] | [address] | [place] [address] | | | SERVICESJANELL | [address] [...] - [facility] | [address] | [place], [place] | | | [facility] | [facility] | [address] | | | TESTS | | | [...] [facility] | [address] | [place] [address] | | | SERVICES, CORE | PARK [...] [facility] | [address] | [place] [address] | | | SERVICES, CORE | PARK [...] | | | LABORATORY | | | ARGENTINE | | | SERVICES, | | | [...] | + + + + + | [facility] | [address] [facility] | [place] [address] | | | ARON, JANELL | KRISTEN [...] [facility] | [address] | [place], [place] | | | [facility]ARE | [address] | [address] | | | TESTS | | | [...] M[facility] | [address] | [place], [place] | | | [facility] | [address] | [address] | | | TESTS | | | [...] | + + + + + | [facility] | [address] | [place] [address] | | | SERVICES, CORE | [address] | | | + + + + + MAGNESIUM, PLASMA (05/12/2014 1:07 AM PST) + +---------+ + + + | Component | Value | Ref Range | Performed | Pathologist | | | | | At | Signature | + +---------+ + + + | MAGNESIUM,P | 1.5 (L) | 1.8 - 2.5 mg/dL | [facility] | | | LASMA | | [...] | + + + + + | [facility] | [address] [facility] | [place] [address] | | | SERVICES, CORE | KRISTEN [...] | | | LABORATORY | | | ARGENTINE | | | SERVICES, | | | [...] the MDRD equation recommended by the | [facility] | | National Kidney Disease Education [...] | + + + + + | [facility] | [address] | [place] [address] | | | ARON, JANELL | KRISTEN [...] [facility] | [address] | [place] [address] | | | SERVICES, JANELL | KRISTEN [...] - [facility] | [address] | [place], [place] | | | [facility] CARE | [address] | [address] | | | TESTS | | | [...] + + + | [facility] | [address] | [place], [place] | | | [facility] CARE | [address] | [address] | | | TESTS | | | [...] [facility] | [address] | [place] [address] | | | SERVICES, CORE | PARK [...] | + + + + + | [facility] | [address] | [place] [address] | | | SERVICES, CORE | KRISTEN [...] | | | LABORATORY | | | ARGENTINE | | | SERVICES, | | | [...] the MDRD equation recommended by the | [facility] | | National Kidney Disease Education [...] | + + + + + | [facility] | [address] | [place] [address] | | | SERVICES, CORE | PARK [...] (H) | 0.90 - 1.20 INR | [facility] | | | | | | LABORATORY [...] | + + + + + | [facility] | [address] | [place] [address] | | | JANELL SHARP | KRISTEN [...] (H) | 60 - 99 mg/dL | [facility] - | | | GLUCOSE, | [...] SANDERS | [address] | [place], [place] | | | [facility] CARE | [address] | [address] | | | TESTS | | | [...] + + | Performing | Address | City/State/[facility] Centercode | Phone Number | | Organization | | | | + + + + + | [facility] | [address] | [place], [place] | | | KAILEY MOORE | [facility] | [address] | | | TESTS | | | [...] | | + +---------+ + + | [facility] DEPARTMENT OF | | | | [...] MAR[facility]N | [address] | [place], [place] | | | [facility] OF [place] | [facility] | [address] | | | TESTS | | | [...] (H) | 60 - 99 mg/dL | [facility] - | | | GLUCOSE, | [...] SANDERS | [address] | [place], [place] | | | [facility]ARE | [address] | [address] | | | TESTS | | | [...] | + + + + + | [facility] | [address] | [place] [address] | | | SERVICES, CORE | PARK [...] | + + + + + | [facility] | [address] | [place] [address] | | | SERVICES, CORE | KRISTEN [...] | | | LABORATORY | | | ARGENTINE | | | SERVICES, | | | [...] the MDRD equation recommended by the | [facility] | | National Kidney Disease Education [...] | + + + + + | [facility] | [address] | [place] [address] | | | SERVICES, CORE | PARK [...] (H) | 0.90 - 1.20 INR | [facility] | | | | | | [...] | + + + + + | [facility] | [address] | [place] [address] | | | SERVICES, CORE | PARK [...] | [facility] | [address] | [place], [place] | | | [facility]ARE | [address] | [address] | | | TESTS | | | [...] SANDERS | [address] | [place], [place] | | | [facility] CARE | [address] | [address] | | | TESTS | | | [...] [facility] | [address] | [place], [place] | | | [facility]ARE | [address] | [address] | | | TESTS | | | [...] [facility] | [address] | [place] [address] | | | ARON, JANELL | PARK [...] [facility] | [address] | [place] [address] | | | SERVICES, CORE | PARK [...] | | | LABORATORY | | | ARGENTINE | | | SERVICES, | | | [...] | + + + + + | [facility] | [address] | [place] [address] | | | SERVICES, CORE | PARK [...] | + + + + + | [facility] | [address] | [place] [address] | | | SERVICES, CORE | KRISTEN [...] MAR[facility] | [address] | [place], [place] | | | [facility] [place] | [facility] | [address] | | | TESTS | | | [...] SANDERS | [address] | [place], [place] | | | [facility] | [address] | [address] | | | TESTS | | | [...] [facility] | [address] | [place] [address] | | | SERVICES, CORE | PARK [...] [facility] | [address] | [place] [address] | | | SERVICES, CORE | PARK [...] | | | LABORATORY | | | ARGENTINE | | | SERVICES, | | | [...] | + + + + + | [facility] | [address] | [place] [address] | | | SERVICES, JANELL | KRISTEN [...] | + + + + + | [facility] | [address] [facility] | [place] [address] | | | SERVICES, JANELL | KRISTEN [...] [facility] | [address] | [place], [place] | | | [facility]ARE | [address] | [address] | | | TESTS | | | [...] [facility] | [address] | [place], [place] | | | [facility] | [address] | [address] | | | TESTS | | | [...] | + + + + + | [facility] | [address] | [place] [address] | | | SERVICES, CORE | [address] | | | + + + + + MAGNESIUM, PLASMA (05/07/2014 3:15 AM PST) + +---------+ + + + | Component | Value | Ref Range | Performed | Pathologist | | | | | At | Signature | + +---------+ + + + | MAGNESIUM,P | 1.6 (L) | 1.8 - 2.5 mg/dL | [facility] | | | [facility] | | | [...] | + + + + + | [facility] | [address] | [place] [address] | | | SERVICES, CORE | KRISTEN [...] | | | LABORATORY | | | ARGENTINE | | | SERVICES, | | | [...] | + + + + + | [facility] | [address] | [place] [address] | | | ARON, JANELL | KRISTEN [...] + + + | [facility] | [address] | [place] [address] | | | SERVICES, JANELL | KRISTEN [...] - MAR[facility] | [address] | [place], [place] | | | [facility] | [address] | [address] | | | TESTS | | | [...] | + + + + + | [facility] | [address] | [place] [address] | | | SERVICES, CORE | KRISTEN [...] [facility] | [address] | [place], [place] | | | [facility]ARE | [address] | [address] | | | TESTS | | | [...] + + | [facility] | [address] | [place], [place] | | | [facility] | [address] | [address] | | | TESTS | | | [...] [facility] | [address] | [place] [address] | | | SERVICES, CORE | PARK [...] [facility] | [address] | [place] [address] | | | SERVICES, CORE | PARK [...] | | | LABORATORY | | | ARGENTINE | | | SERVICES, | | | [...] | + + + + + | [facility] | [address] | [place] [address] | | | SERVICES, JANELL | KRISTEN [...] | + + + + + | [facility] | [address] | [place] [address] | | | ARON, JANELL | KRISTEN [...] | + + + + + | [facility] | [address] | [place] [address] | | | SERVICES, CORE | KRISTEN [...] [facility] | [address] | [place] [address] | | | SERVICES, CORE | PARK [...] | + + + + + | [facility] | [address] | [place] [address] | | | SERVICES, CORE | KRISTEN [...] | | | LABORATORY | | | ARGENTINE | | | SERVICES, | | | [...] the MDRD equation recommended by the | [facility] | | National Kidney Disease Education [...] | + + + + + | [facility] | [address] | [place] [address] | | | SERVICES, CORE | PARK [...] [facility] | [address] | [place] [address] | | | SERVICES, JANELL | KRISTEN [...] + + + + | [facility] | [address] | [place], [place] | | | [facility] | [address] | [address] | | + + + + + [...] [facility] | [address] | [place] [address] | | | SERVICES, CORE | KRISTEN [...] | + + + + + | [facility] | [address] | [place] [address] | | | SERVICES, CORE | KRISTEN [...] [facility] | [address] | [place] [address] | | | SERVICES, CORE | PARK [...] | + + + + + | [facility] | [address] | [place] [address] | | | SERVICES, CORE | KRISTEN [...] | | | LABORATORY | | | ARGENTINE | | | SERVICES, | | | [...] [facility] | [address] | [place] [address] | | | SERVICES, CORE | KRISTEN [...] (H) | 0.90 - 1.20 INR | [facility] | | | | | | LABORATORY [...] [facility] | [address] | [place] [address] | | | SERVICES, CORE | KRISTEN [...] | + + + + + | [facility] | [address] | [place] [address] | | | SERVICES, JANELL | KRISTEN [...] [facility] | [address] | [place] [address] | | | SERVICES, CORE | PARK [...] [facility] | [address] | [place] [address] | | | SERVICES, CORE | PARK [...] | + + + + + | [facility] | [address] | [place] [address] | | | ARON, JANELL | KRISTEN [...] (H) | 60 - 99 mg/dL | [facility] - | | | GLUCOSE, | [...] SANDERS | [address] | [place], [place] | | | [place] [place] | [facility] | [address] | | | TESTS | | | [...] | | + +---------+ + + | [facility] DEPARTMENT OF | | | | [...] + + | [facility] | [address] | [place] [address] | | | SERVICES, CORE | PARK [...] | + + + + + | [facility] | [address] | [place] [address] | | | SERVICES, CORE | KRISTEN [...] | | | LABORATORY | | | ARGENTINE | | | SERVICES, | | | [...] | + + + + + | [facility] | [address] | [place] [address] | | | SERVICES, CORE | PARK [...] | + + + + + | [facility] | [address] | [place] [address] | | | SERVICES, CORE | PARK [...] | + + + + + | [facility] | [address] | [place] [address] | | | SERVICES, CORE | KRISTEN [...] | | | LABORATORY | | | ARGENTINE | | | SERVICES, | | | [...] | + + + + + | [facility] | [address] | [place] [address] | | | ARON, JANELL | KRISTEN [...] | | | LABORATORY | | | ARGENTINE | | | SERVICES, | | | [...] | + + + + + | [facility] | [address] | [place] [address] | | | SERVICES, CORE | KRISTEN [...] + | [facility] | [address] | [place], [place] | | | THERAPY | [address] | [address] | | + + + + + [...] + | [facility] | [address] | [place], [place] | | | THERAPY | [address] | [address] | | + + + + + [...] | + + + + + | [facility] | [address] | [place] [address] | | | SERVICES, CORE | KRISTEN [...] + + | [facility] | [address] [facility] | [place] [address] | | | SERVICES, CORE | PARK [...] | + + + + + | [facility] | [address] | [place] [address] | | | SERVICES, CORE | KRISTEN [...] | | | LABORATORY | | | ARGENTINE | | | SERVICES, | | | [...] [facility] | [address] | [place] [address] | | | SERVICES, CORE | PARK [...] [facility] | [address] | [place] [address] | | | SERVICES, CORE | KRISTEN [...] DEPT OF | [address] | [place], [place] | | | CARDIOLOGY | [address] | [address] | | + + + + + [...] MARTINEZ, | | | | | | MD I have personally | | | | | | viewed this | | | | | | procedure/exam, reviewed | | | | | | this report, and | | | | | | madechanges to it where | | | | | | appropriate. | | | | | | Final/Electronically | | | | | | isaías / LULU | | | | | [...] | | + +---------+ + + | [facility] DEPARTMENT OF | | | | [...] | + + + + + | [facility] | [address] | [place] [address] | | | JANELL SHARP | KRISTEN [...] (H) | 60 - 99 mg/dL | [facility] - | | | GLUCOSE, | [...] SANDERS | [address] | [place], [place] | | | OSCAR POINT OF CARE | [address] | [address] | | | TESTS | | | [...] [facility] | [address] | [place], [place] | | | [facility] [place] | [address] | [address] | | | TESTS | | | [...] | + + + + + | [facility] | [address] | [place] [address] | | | SERVICES, CORE | KRISTEN [...] Bilateral | | | | | | [id number] | | | | | | pleural [...] LABORATORY | [address] | [place] [address] | | | SERVICES, CORE | [address] | | | + + + + + MAGNESIUM, PLASMA (05/01/2014 2:45 AM PST) + +-------+ + + + | Component | Value | Ref Range | Performed | Pathologist | | | | | At | Signature | + +-------+ + + + | MAGNESIUM,P | 1.9 | 1.8 - 2.5 mg/dL | [facility] | | | LASMA | | | [...] [facility] | [address] | [place] [address] | | | SERVICES, CORE | KRISTEN [...] | | | LABORATORY | | | ARGENTINE | | | SERVICES, | | | [...] | + + + + + | [facility] | [address] | [place] [address] | | | JANELL SHARP | KRISTEN [...] | + + + + + | [facility] | [address] | [place] [address] | | | SERVICES, JANELL | KRISTEN [...] + + | [facility] | [address] [facility] [address] | [place], [place] | | | PEPE MOORE OF CARE | [address] | [address] | | | TESTS | | | [...] | | + +---------+ + + | [facility] DEPARTMENT OF | | | | [...] JULIO | | | | | | MHLANPOLLO 04/30/2014 12:49 | | | | | [...] | | + +---------+ + + | [facility] DEPARTMENT OF | | | | [...] | | + +---------+ + + | [facility] DEPARTMENT OF | | | | [...] | + + + + + | [facility] | [address] | [place] [address] | | | SERVICES, CORE | PARK [...] | + + + + + | [facility] | [address] | [place] [address] | | | SERVICES, CORE | KRISTEN [...] | + + + + + | [facility] | [address] | [place] [address] | | | ARON, JANELL | KRISTEN [...] | | | LABORATORY | | | ARGENTINE | | | SERVICES, | | | [...] [facility] | [address] | [place] [address] | | | SERVICES, CORE | PARK [...] | | | LABORATORY | | | ARGENTINE | | | SERVICES, | | | [...] | + + + + + | [facility] | [address] | [place] [address] | | | SERVICES, JANELL | KRISTEN [...] [facility] | [address] | [place], [place] | | | [facility]SCAR POINT OF CARE | [facility] | [address] | | | TESTS | | | [...] [facility] | [address] | [place] [address] | | | JANELL SHARP | KRISTEN [...] [facility] | [address] | [place] [address] | | | SERVICES, CORE | PARK [...] | | | LABORATORY | | | ARGENTINE | | | SERVICES, | | | [...] | + + + + + | [facility] | [address] | [place] [address] | | | SERVICES, CORE | KRISTEN [...] | + + + + + | [facility] | [address] | [place] [address] | | | SERVICES, CORE | KRISTEN [...] [facility] | [address] | [place] [address] | | | JANELL SHARP | KRISTEN [...] (H) | 60 - 99 mg/dL | [facility] - | | | GLUCOSE, | [...] [facility] | [address] | [place], [place] | | | [facility] | [address] | [address] | | | TESTS | | | [...] [facility] | [address] | [place] [address] | | | SERVICES, CORE | [address] | | | + + + + + INR (04/28/2014 8:00 AM PST) + +-------+ + + + | Component | Value | Ref Range | Performed | Pathologist | | | | | At | Signature | + +-------+ + + + | INR | 1.03 | 0.90 - 1.20 INR | [facility] | | | | | | LABORATORY [...] + + | [facility] | [address] [facility] [facility] | [place] [address] | | | SERVICES, CORE | PARK [...] [facility] | [address] | [place] [address] | | | SERVICES, CORE | KRISTEN [...] [facility] | [address] | [place] [address] | | | SERVICES, CORE | PARK [...] | | | LABORATORY | | | ARGENTINE | | | SERVICES, | | | [...] | + + + + + | [facility] | [address] | [place] [address] | | | SERVICES, CORE | KRISTEN [...] | + + + + + | [facility] | [address] | [place] [address] | | | SERVICES, JANELL | KRISTEN [...] | + + + + + | [facility] | [address] | [place] [address] | | | SERVICES, JANELL | KRISTEN [...] | | + +---------+ + + | [facility] DEPARTMENT OF | | | | [...] | + + + + + | [facility] | [address] | [place] [address] | | | SERVICES, CORE | KRISTEN [...] [facility] | [address] | [place], [place] | | | [facility] | [facility] | [id number] | | | TESTS | | | | + + + + + X-RAY ABD LTD FEEDING TUBE EVAL PORTABLE (04/27/2014 10:33 AM PST) + + + + + + | Component | Value | Ref Range | Performed | Pathologist | | | | | At | Signature | + + + + + + | X-RAY ABD | STUDY: [facility] | | | | | LTD [...] | + + + + + | [facility] | [address] | [place] [address] | | | ARON, JANELL | KRISTEN [...] | + + + + + | [facility] | [address] | [place] [address] | | | SERVICES, CORE | KRISTEN [...] | + + + + + | [facility] | [address] | [place] [address] | | | SERVICES, CORE | KRISTEN [...] [facility] | [address] | [place] [address] | | | SERVICES, CORE | PARK [...] | | | LABORATORY | | | ARGENTINE | | | SERVICES, | | | [...] | + + + + + | [facility] | [address] | [place] [address] | | | SERVICES, CORE | KRISTEN [...] + +---------+ + + + | BETINA D CMNT | No Hemo | | [...] [facility] | [address] | [place] [address] | | | SERVICES, CORE | PARK [...] | + + + + + | [facility] | [address] | [place] [address] | | | SERVICES, CORE | KRISTEN [...] + + + + + | [facility] | [address] | [place] [address] | | | SERVICES, CORE | PARK [...] | + + + + + | [facility] [employer] | [address] | [place] [address] | | | SERVICES, CORE | PARK [...] [facility] | [address] | [place] [address] | | | SERVICES, CORE | PARK [...] | | | LABORATORY | | | ARGENTINE | | | SERVICES, | | | [...] | + + + + + | [facility] | [address] | [place] [address] | | | SERVICES, CORE | KRISTEN [...] PRIMARY | | | | | | PYROTECHNICIAN: Rudy | | | | | | [...] [facility] | [address] | [place], [place] | | | [facility] | [address] | [address] | | | TESTS | | | [...] | | + +---------+ + + | [facility] DEPARTMENT OF | | | | [...] + | ARTUR GARDNER | [address] | [place] [address] | | | SERVICES, CORE | KRISTEN [...] | + + + + + | [facility] | [address] | [place] [address] | | | SERVICES, CORE | KRISTEN [...] | + + + + + | [facility] | [address] | [place] [address] | | | SERVICES, CORE | KRISTEN [...] | + + + + + | [facility] | [address] | [place] [address] | | | SERVICES, JANELL | KRISTEN [...] | included in the neutrophil count. | JANELL SHARP | + + + + + + + + | Performing | Address | City/State/Zipcode | Phone Number | | Organization | | | | + + + + + | [facility] | [address] | [place] [address] | | | SERVICES, JANELL | KRISTEN [...] | + + + + + | [facility] | [address] | [place] [address] | | | SERVICES, CORE | KRISTEN [...] | | | LABORATORY | | | ARGENTINE | | | SERVICES, | | | [...] | + + + + + | [facility] | [address] | [place] [address] | | | JANELL SHARP | KRISTEN [...] [facility] | [address] | [place] [address] | | | SERVICES, CORE | PARK [...] | + + + + + | [facility] | [address] | [place] [address] | | | SERVICES, CORE | KRISTEN [...] (H) | 60 - 99 mg/dL | [facility] - | | | GLUCOSE, | [...] SANDERS | [address] | [place], [place] | | | [facility] CARE | [address] | [address] | | | TESTS | | | [...] | | | LABORATORY | | | ARGENTINE | | | SERVICES, | | | [...] the MDRD equation recommended by the | [facility] | | National Kidney Disease Education [...] | + + + + + | [facility] | [address] | [place] [address] | | | JANELL SHARP | KRISTEN [...] (H) | 60 - 99 mg/dL | [facility] - | | | GLUCOSE, | [...] SANDERS | [address] | [place], [place] | | | [facility]ARE | [address] | [address] | | | TESTS | | | [...] [facility] | [address] | [place] [address] | | | SERVICES, CORE | KRISTEN [...] | + + + + + | [facility] | [address] | [place] [address] | | | JANELL SHARP | KRISTEN [...] + + + + | PRODUCT | [id number] | | [facility] | | | UNIT [...] + + + + | BLOOD | [id number] | | [facility] | | | PRODUCT [...] DEPARTMENT OF | [address] | [place] [address] | | | PATHOLOGY | [address] [...] + + + + | PRODUCT | [id number] | | [facility] | | | UNIT [...] + + + + | BLOOD | [id number] | | [facility] | | | PRODUCT [...] | + + + + + | [facility] DEPARTMENT OF | [address] | [place] [address] | | | PATHOLOGY | [address] [...] [facility] | [address] | [place] [address] | | | SERVICES, CORE | PARK [...] | + + + + + | [facility] | [address] | [place] [address] | | | SERVICES, CORE | PARK [...] | | | LABORATORY | | | ARGENTINE | | | SERVICES, | | | [...] [facility] | [address] | [place] [address] | | | SERVICES, CORE | PARK [...] ARTUR GARDNER | [address] | [place] [address] | | | SERVICES, CORE | KRISTEN [...] | + + + + + | [facility] | [address] [facility] | [place] [address] | | | SERVICES, CORE | PARK [...] [facility] | [address] | [place] [address] | | | SERVICES, CORE | PARK [...] | + + + + + | [facility] | [address] | [place] [address] | | | SERVICES, CORE | KRISTEN [...] (H) | 60 - 99 mg/dL | [facility] - | | | GLUCOSE, | | [...] SANDERS | [address] | [place], [place] | | | [facility] | [address] | [address] | | | TESTS | | | [...] [facility] | [address] | [place], [place] | | | [facility]ARE | [address] | [address] | | | TESTS | | | [...] | + + + + + | [facility] | [address] | [place] [address] | | | SERVICES, CORE | KRISTEN [...] | + + + + + | [facility] | [address] | [place] [address] | | | SERVICES, CORE | KRISTEN [...] | | + +---------+ + + | [facility] DEPARTMENT OF | | | | [...] [facility] | [address] | [place] [address] | | | SERVICES, CORE | PARK [...] | + + + + + | [facility] | [address] | [place] [address] | | | SERVICES, CORE | KRISTEN [...] [facility] | [address] | [place] [address] | | | SERVICES, CORE | PARK [...] | | | LABORATORY | | | ARGENTINE | | | SERVICES, | | | [...] | + + + + + | [facility] [employer] | [address] | [place] [address] | | | SERVICES, JANELL | KRISTEN [...] [facility] | [address] | [place] [address] | | | SERVICES, CORE | PARK [...] [facility] | [address] | [place] [address] | | | SERVICES, JANELL | KRISTEN [...] [facility] | [address] | [place], [place] | | | THERAPY | [address] | [address] | | + + + + + [...] [facility] | [address] | [place], [place] | | | THERAPY | [address] | [address] | | + + + + + [...] | | | LABORATORY | | | ARGENTINE | | | SERVICES, | | | [...] | + + + + + | [facility] | [address] | [place] [address] | | | SERVICES, CORE | KRISTEN [...] and volume. | LABORATORY | | | JANELL SHARP | + + + + + + + + | Performing | Address | City/State/Zipcode | Phone Number | | Organization | | | | + + + + + | [facility] | [address] | [place] [address] | | | JANELL SHARP | KRISTEN [...] | + + + + + | [facility] | [address] | [place] [address] | | | SERVICES, CORE | PARK [...] [facility] | [address] | [place] [address] | | | SERVICES, CORE | PARK [...] [facility] | [address] | [place] [address] | | | SERVICES, CORE | PARK [...] | + + + + + | [facility] | [address] | [place] [address] | | | ARON, JANELL | KRISTEN [...] | + + + + + | [facility] | [address] [facility] | [place] [address] | | | SERVICES, CORE | KRISTEN [...] | | | LABORATORY | | | ARGENTINE | | | SERVICES, | | | [...] the MDRD equation recommended by the | [facility] | | National Kidney Disease Education [...] | + + + + + | [facility] | [address] | [place] [address] | | | SERVICES, CORE | PARK [...] | + + + + + | [facility] | [address] | [place] [address] | | | SERVICES, CORE | PARK [...] [facility] | [address] | [place], [place] | | | [facility] | [address] | [address] | | | TESTS | | | [...] PRIMARY | | | | | | PYROTECHNICIAN: Rudy | | | | | | [...] 5 | | | | | | Swedish vascular sheath | | | | | [...] | | | | for a 5 Swedish | | | | | | IMAcatheter. [...] | | | | artery. A 3 Swedish | | | | | | microcatheterwas [...] | | | | | | Radiologists: NHAUN | | | | | | MARGARITO [...] + + + + + + | [facility]TC-[facility] | 424 | ms | [facility] DEPT [...] | Procedure Note | + + | Curt, Faculty - 04/23/2014 1:19 PM PST | + + + + + + + | Performing | Address | City/State/Zipcode | Phone Number | | Organization | | | | + + + + + | [facility] | [address] | [place], [place] | | | CARDIOLOGY | [address] | [address] | | + + + + + [...] + + + + | PRODUCT | [id number] | | [facility] | | | UNIT [...] + + + + | BLOOD | [id number] | | [facility] | | | PRODUCT [...] DEPARTMENT OF | [address] | [place] [address] | | | PATHOLOGY | [address] [...] + + + + | PRODUCT | [id number] | | [facility] | | | UNIT [...] + + + + | BLOOD | [id number] | | [facility] | | | PRODUCT [...] DEPARTMENT OF | [address] | [place] [address] | | | PATHOLOGY | [address] [...] + + + + | PRODUCT | [id number] | | [facility] | | | UNIT [...] + + + + | BLOOD | [id number] | | [facility] | | | PRODUCT [...] DEPARTMENT OF | [address] | [place], [place] [address] | | | PATHOLOGY | [address] [...] + + + + | PRODUCT | [id number] | | [facility] | | | UNIT [...] + + + + | BLOOD | [id number] | | [facility] | | | PRODUCT [...] DEPARTMENT OF | [address] | [place] [address] | | | PATHOLOGY | [address] [...] + + + + | PRODUCT | [id number] | | [facility] | | | UNIT [...] + + + + | BLOOD | [id number] | | [facility] | | | PRODUCT [...] DEPARTMENT OF | [address] | [place] [address] | | | PATHOLOGY | [address] [...] + + + + | PRODUCT | [id number] | | [facility] | | | UNIT [...] + + + + | BLOOD | [id number] | | [facility] | | | PRODUCT [...] | + + + + + | [facility] | [address] | [place] [address] | | | PATHOLOGY | [address] [...] + + + + | PRODUCT | [id number] | | [facility] | | | UNIT [...] + + + + | BLOOD | [id number] | | [facility] | | | PRODUCT [...] DEPARTMENT OF | [address] | [place] [address] | | | PATHOLOGY | [address] [...] + + + + | PRODUCT | [id number] | | [facility] | | | UNIT [...] + + + + | BLOOD | [id number] | | [facility] | | | PRODUCT [...] | + + + + + | [facility] DEPARTMENT | [address] | [place] [address] | | | PATHOLOGY | [address] [...] + + + + | PRODUCT | [id number] | | [facility] | | | UNIT [...] + + + + | BLOOD | [id number] | | [facility] | | | PRODUCT [...] DEPARTMENT OF | [address] | [place] [address] | | | PATHOLOGY | [address] [...] + + + + | PRODUCT | [id number] | | [facility] | | | UNIT [...] + + + + | BLOOD | [id number] | | [facility] | | | PRODUCT [...] | + + + + + | [facility] | [address] | [place] [address] | | | PATHOLOGY | [address] [...] + + + + | PRODUCT | [id number] | | [facility] | | | UNIT [...] + + + + | BLOOD | [id number] | | [facility] | | | PRODUCT [...] DEPARTMENT OF | [address] | [place] [address] | | | PATHOLOGY | [address] [...] + + + + | PRODUCT | [id number] | | [facility] | | | UNIT [...] + + + + | BLOOD | [id number] | | [facility] | | | PRODUCT [...] | + + + + + | [facility] | [address] | [place] [address] | | | PATHOLOGY | [address] [...] + + + + | PRODUCT | [id number] | | [facility] | | | UNIT [...] + + + + | BLOOD | [id number] | | [facility] | | | PRODUCT [...] DEPARTMENT OF | [address] | [place], [place] [address] | | | PATHOLOGY | [address] [...] + + + + | PRODUCT | [id number] | | [facility] | | | UNIT [...] + + + + | BLOOD | [id number] | | [facility] | | | PRODUCT [...] | + + + + + | [facility] DEPARTMENT | [address] | [place] [address] | | | PATHOLOGY | [address] [...] + + + + | PRODUCT | [id number] | | [facility] | | | UNIT [...] + + + + | BLOOD | [id number] | | [facility] | | | PRODUCT [...] DEPARTMENT OF | [address] | [place] [address] | | | PATHOLOGY | [address] [...] + + + + | PRODUCT | [id number] | | [facility] | | | UNIT [...] + + + + | BLOOD | [id number] | | [facility] | | | PRODUCT [...] | + + + + + | [facility] | [address] | [place] [address] | | | PATHOLOGY | [address] [...] + + + + | PRODUCT | [id number] | | [facility] | | | UNIT [...] + + + + | BLOOD | [id number] | | [facility] | | | PRODUCT [...] DEPARTMENT OF | [address] | [place] [address] | | | PATHOLOGY | [address] [...] + + + + | PRODUCT | [id number] | | [facility] | | | UNIT [...] + + + + | BLOOD | [id number] | | [facility] | | | PRODUCT [...] | + + + + + | [facility] | [address] | [place] [address] | | | PATHOLOGY | [address] [...] + + + + | PRODUCT | [id number] | | [facility] | | | UNIT [...] + + + + | BLOOD | [id number] | | [facility] | | | PRODUCT [...] DEPARTMENT OF | [address] | [place] [address] | | | PATHOLOGY | [address] [...] + + + + | PRODUCT | [id number] | | [facility] | | | UNIT [...] + + + + | BLOOD | [id number] | | [facility] | | | PRODUCT [...] | + + + + + | [facility] | [address] | [place] [address] | | | PATHOLOGY | [address] [...] [facility] | [address] | [place] [address] | | | SERVICES, CORE | PARK [...] [facility] | [address] | [place] [address] | | | SERVICES, CORE | PARK [...] | + + + + + | [facility] | [address] [facility] | [place] [address] | | | [facility], CORE | [address] | | | [...] | | | LABORATORY | | | ARGENTINE | | | SERVICES, | | | [...] [facility] | [address] | [place] [address] | | | SERVICES, JANELL | PARK [...] [facility] | [address] | [place] [address] | | | SERVICES, CORE | PARK [...] [facility] | [address] | [place] [address] | | | SERVICES, CORE | PARK [...] Culture Screen Negative. Culture not indicated. | [facility] | | | LABORATORY | | | SERVICES, CORE | + + + + + + + + | Performing | Address | City/State/Zipcode | Phone Number | | Organization | | | | + + + + + | [facility] | [address] | [place] [address] | | | ARON, JANELL | KRISTEN [...] 89 | 60 - 99 mg/dL | [facility] - | | | GLUCOSE, | [...] [facility] | [address] | [place], [place] | | | [facility] | [address] | [address] | | | TESTS | | | [...] | + + + + + | [facility] | [address] | [place] [address] | | | SERVICES, | [address] [...] [facility] | [address] | [place] [address] | | | SERVICES, | [address] [...] + + + + | PRODUCT | [id number] | | [facility] | | | UNIT [...] + + + + | BLOOD | [id number] | | [facility] | | | PRODUCT [...] | + + + + + | [facility] | [address] | [place] [address] | | | PATHOLOGY | [address] [...] + + + + | PRODUCT | [id number] | | [facility] | | | UNIT [...] + + + + | BLOOD | [id number] | | [facility] | | | PRODUCT [...] DEPARTMENT OF | [address] | [place] [address] | | | PATHOLOGY | [address] [...] + + + + | PRODUCT | [id number] | | [facility] | | | UNIT [...] + + + + | BLOOD | [id number] | | [facility] | | | PRODUCT [...] | + + + + + | [facility] | [address] | [place] [address] | | | PATHOLOGY | [address] [...] + + + + | PRODUCT | [id number] | | [facility] | | | UNIT [...] + + + + | BLOOD | [id number] | | [facility] | | | PRODUCT [...] DEPARTMENT OF | [address] | [place] [address] | | | PATHOLOGY | [address] [...] + + + + | PRODUCT | [id number] | | [facility] | | | UNIT [...] + + + + | BLOOD | [id number] | | [facility] | | | PRODUCT [...] | + + + + + | [facility] | [address] | [place] [address] | | | PATHOLOGY | [address] [...] + + + + | PRODUCT | [id number] | | [facility] | | | UNIT [...] + + + + | BLOOD | [id number] | | [facility] | | | PRODUCT [...] | + + + + + | [facility] | [address] | [place] [address] | | | PATHOLOGY | [address] | | | + [...]
--- OUTSIDE RECORDS SUMMARY | ~2019-11-05 | XMS | Encounter Summary ---
Demographics + + + | Address | [address] | | | [place] [address] | + + + | Home Phone [...] [place], [place] | | | | | [address] | | + + + + + | Cami Sawyer | ECON | Unknown | | + + + + + Care Team Providers + +------+ + | Care Pastoral Ministries Professor Name | Role | Phone | [...] | 2014 | Event | [facility] | [address] | | | | | [facility] | [facility] | | | | | Hospital Admitting | [place] [address] | | | | | Desk Located on the | [phone] | | | | | 9th floor | | | | | | [place], [place] | Rajiv Willingham MD | | | | | [address] | [facility] | | | | | | [facility] [address] | | | | | | [facility] | | | | | | [place] [address] | | | | | | [phone] | | | | | | | [...] by | | D - | "port"); [facility]; 01/27/17 | Alberto London RN | Discontinued After | | [facility] | (Automatic cleanup per RA | | Discharge | | l Line | 3006--contact admin for | | | | | questions.); 1622 (Automatic | | | | | cleanup per RA 3006--contact | | | | | admin for questions.); Yes; Other | | | | | (comment) ([facility]); No; Left; | | | | | [...]
--- OUTSIDE RECORDS SUMMARY | ~2019-11-05 | XMS | Encounter Summary ---
Demographics + + + | Address | [address] | | | [place] [address] | + + + | Home Phone [...] Team Providers + +------+ + | Care Ceramic Products Sales Engineer Name | Role | Phone | [...] + + | 08/26/ | Telephone | [facility] | Davina Jackson, | Ostomy | | 2019 | | CENTER OUTPATIENT | RN | | | | | WOUND CARE [address] | | | | | | [place] | | | | | | [address] | | | | | | [phone] | | | +--------+ + + + [...] a [place] from Elian Chang [place] [place] He states they need a new order for ostomy suppli es in order to ship supplies. We have not seen this patient since 2018. I recommended he f ax paperwork to Dr. Bocanegra's office at [phone] for signature. Called Angelique at Dr. Hilario [...]
--- OUTSIDE RECORDS SUMMARY | ~2019-11-05 | XMS | Encounter Summary ---
Demographics + + + | Address | [address] [place] [address] | | | [place] [address] | + + + | Home Phone [...] Team Providers + +------+ + | Care Vacuum Caster Name | Role | Phone | + [...] Provider Unknown | | | | | [place], [place] | [phone] | | | | | [address] | | | | | | [phone] | | | +--------+ + + + [...]
--- OUTSIDE RECORDS SUMMARY | ~2019-11-05 | XMS | Encounter Summary ---
Demographics + + + | Address | [address] | | | [place] [address] | + + + | Home Phone | | + + + | Preferred Language | Unknown | + + + | Marital Status | | + + + | Zoroastrian Affiliation | NRP | + + + [...] [place], [place] | | | | | [address] | | + + + + + | Cami Sawyer | ECON | Unknown | | + + + + + Care Team Providers + +------+ + | Care Top Frame Fitter Name | Role | Phone | + [...] [address] | | | | | [place], [place] | [address] | | | 05/13/ | | | [place], [place] | | | 2014 | | [phone] | [address] | | | | | | [phone] | | | | | | | | | | | | Jf Wiseman MD | | | | | | [address] | | | | | | [address] | | | | | | [place], [place] | | | | | | [address] | | | | | | [phone] | | | | | | | [...] might be different f rom the original. [facility] DEPARTMENT OF SURGERY EMERGENCY GENERAL SURGERY Division [...] continued to progress and is [facility] care. Mackenzie Hartley is discharged [...] 100mls three times a day. Destination: Destination: [facility] Thank you for the opportunity to [...] might be different f rom the original. 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 from [facility] for hanh gement of retroperitoneal [...] diet Discharge [place]: [place] [id number] pager number [facility] [address] [place] [facility] [place] [address] ean-Claude Albrecht DM D, MD - 05/12/2014 7:[address] 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 from [facility] for management of retroperitoneal bleed. [...] thrombosis while anticoagulated with warfarin transferred to [facility] from [facility] for management of retroperitoneal bleed. [...] know if she wants to see the [facility] GI team - Stage I pressure [...] recommending [facility] since would be close to [facility] and she would benefit for aggres [...] with complication 03/12/2012 Jean-Claude Albrecht D.M.D., M.D. [facility] [address] [place] [address] This assessment and plan was formulated both [...] MD - 05/11/2014 8:[address] 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 from [facility] for management of retroperitoneal bleed. [...] thrombosis while anticoagulated with warfarin transferred to [facility] from [facility] for management of retroperitoneal bleed. [...] know if she wants to see the [facility] GI team - Stage I pressure [...] recommending [facility] since would be close to [facility] and she would benefit for aggres [...] with complication 03/12/2012 Jean-Claude Albrecht D.M.D., M.D. [facility] [address] [place] [address] This assessment and plan was formulated both [...] being active. Pt's has been at the [facility] supporting her. Pt is not scientologist but appreciates support. Intervention: Provided a listening presence and explored pt's anxieties, worries and hopes. Plan: Spiritual care remains available. Yvette Jolly, [facility] / [facility] phone # [phone] pager # [phone] on-call # [phone] signed by Lulu Diaz at 05/10/2014 12:58 PM Andrew Horne Md - 05/10/2014 7:[address] 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 from [facility] for management of retroperitoneal bleed. [...] thrombosis while anticoagulated with warfarin transferred to [facility] from [facility] for management of retroperitoneal bleed. [...] know if she wants to see the [facility] GI team - Stage I pressure [...] recommending [facility] since would be close to [facility] and she would benefit for aggres [...] intestine with complication 03/12/[address] [facility] [address] [place] [address] This assessment and plan was [...] note might be different from the orig [facility]. 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 from [facility] for management of retroperitoneal bleed. [...] thrombosis while anticoagulated with warfarin transferred to [facility] from [facility] for management of retroperitoneal bleed. [...] know if she wants to see the [facility] GI team - Stage I pressure [...] recommending [facility] since would be close to [facility] and she would benefit for aggres [...] intestine with complication 03/12/[address] [facility] [address] [place] [address] This assessment and plan was [...] might be different from the orig inal. 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 from [facility] for management of retroperitoneal bleed. [...] TROPONIN Imaging No new Cultures BLOOD CULTURE [facility] (no units) Date Value Range Status [...] thrombosis while anticoagulated with warfarin transferred to [facility] from [facility] for management of retroperitoneal bleed. [...] know if she wants to see the [facility] GI team - Stage I pressure [...] recommending [facility] since would be close to [facility] and she would benefit for aggres [...] intestine with complication 03/12/[address] [facility] [address] [place] [address] This assessment and plan was [...] while anticoagulated with warfar in transferred to [facility] from [facility] for management of retroperitoneal bleed. [...] TROPONIN Imaging No new Cultures BLOOD CULTURE [facility] (no units) Date Value Range Status [...] thrombosis while anticoagulated with warfarin transferred to [facility] from [facility] for management of retroperitoneal bleed. [...] intestine with complication 03/12/[address] [facility] [address] [place] [address] This assessment and plan was formulated both [...] note might be different from the orig [facility]. 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 from [facility] for management of retroperitoneal bleed. [...] TROPONIN Imaging No new Cultures BLOOD CULTURE [facility] (no units) Date Value Range Status [...] thrombosis while anticoagulated with warfarin transferred to [facility] from [facility] for management of retroperitoneal bleed. [...] continued DHT,TF - Diet: NPO - per LUNCH WAGON OPERATOR, high risk of aspiration - continue [...] intestine with complication 03/12/[address] [facility] [address]A [address] [place] [address] This assessment and plan was formulated both [...] might be different from the orig inal. 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 from [facility] for management of retroperitoneal bleed. [...] TROPONIN Imaging No new Cultures BLOOD CULTURE [facility] (no units) Date Value Range Status [...] thrombosis while anticoagulated with warfarin transferred to [facility] from [facility] for management of retroperitoneal bleed. [...] intestine with complication 03/12/[address] [facility] [address]A [address] [place] [address] This assessment and plan was [...] the resident s note. PHIL VARMA MD [facility] [address] [place] [address] Rosa Sauer MD - 05/04/2014 8:26 AM [...] at referring hospital. She was transferred to [facility] f or active hemorrhage and underwent IR [...] rounds. Rosa Reynoso, R2 SICU/Trauma Personal pager: [phone] Team pager: [phone] Angeles Acevedo MD - 05/04/2014 7:08 AM PST [facility] DEPARTMENT OF SURGERY EGS ICU Progress Note Division of Trauma and Critical Care ID: Mackenzie Hartley is a 58 year old female with COPD, Crohn's disease, chronic pain, and 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 while anticoagulated with warfarin transferre d to [facility] from [facility] for management of retroperitoneal bleed. [...] thrombosis while anticoagulated with warfarin transferred to [facility] from [facility] for management of retroperitoneal bleed. She has required repeated transfers to ICU for respiratory status. She has been diuresed ap propriately while in the ICU and O2 needs have decreased significantly. Will transfer to [facility] or, but need to keep [...] Hannah MD General Surgery Resident, R3 Pager [phone] [facility] [place] [address] [address] [facility] [address] Jf Jones MD - 05/03/2014 9:38 AM [...] - TF at goal, + BM Dysphagia: LUNCH WAGON OPERATOR following- remains NPO Anasarca: compression socks,. [...] Call team 01/11 for questions: Team Pager [phone] ATTENDING ADDENDUM: I saw and examined Mackenzie [...] Erin Christensen PA-C. Jf Wiseman MD FACS director of operations Division of Trauma, Critical Care, and Acute Care Surgery [id number] Elda Emmanuel MD - 05/03/2014 3:49 AM PST EMERGENCY GENERAL SURGERY ICU PROGRESS NOTE: Attending Physician: Jf Wiseman MD 05/03/2014 ID: Mackenzie Hartley is a 58 year old female with COPD, Crohn's disease, chronic pain, and coagulopa thy resulting in splenic artery thrombosis while anticoagulated with warfarin transferred to [facility] from [facility] for management of retroperitoneal bleed. [...] thrombosis while anticoagulated with warfarin transferred to [facility] from [facility] for management of retroperitoneal bleed. [...] this patient encounter. Elda Glez MD Pager [phone] Plastic Surgery R2 [facility] Diagnoses: 555.2 Crohn's disease of both [...] Remicade- will consult hematology in [facility] y[facility] week regarding of timing of resuming remicade Severe malnutrition: - TF at goal, + BM, Dysphagia: LUNCH WAGON OPERATOR following- remains NPO Anasarca: compression socks,. [...] Call team 01/11 for questions: Team Pager [phone] ATTENDING ADDENDUM: I saw and examined Mackenzie [...] Marge Harris PA-C. Jf Wiseman MD FACS director of operations Division of Trauma, Critical Care, and Acute Care Surgery [id number] GIAHarAngeles oglesby MD - 05/02/2014 6:55 AM PST [facility] DEPARTMENT OF SURGERY EGS ICU Progress Note Division of Trauma and Critical Care ID: Mackenzie Hartley is a 58 year old female with COPD, Crohn's disease, chronic pain, and 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 while anticoagulated with warfarin transferre d to [facility] from [facility] for management of retroperitoneal bleed. [...] thrombosis while anticoagulated with warfarin transferred to [facility] from [facility] for management of retroperitoneal bleed. [...] Hannah MD General Surgery Resident, R3 Pager [phone] [place] [phone] arris, Angeles Hanna MD - 05/02/2014 2:14 [...] Hannah MD General Surgery Resident, R3 Pager [phone] ean-Claude Albrecht DMD, MD - 05/01/2014 10:36 AM PST [facility] DEPARTMENT OF SURGERY EGS Progress Note ID: Mackenzie Hartley is a 58 year old female with COPD, Crohn's disease, chronic pain, and 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 while anticoagulated with warfarin transferre d to [facility] from [facility] for management of retroperitoneal bleed. [...] 110 mg total salt, oral, DAILY, Bartolo Thakcer MD, 25 mg elemental at 05/01/14 0943 [...] thrombosis while anticoagulated with warfarin transferred to [facility] from [facility] for management of retroperitoneal bleed. Overall, she is improving. However, remains tachycardic with leukocytosis - WBC [address] 05/01 showed - moderate ascites and pleural effusions and hematoma. Neuro: dilaudid IV PRN Speech: following continue daily to eval swallow CV: HD stable L QUAHOGGER PSA resolved Continue IV lasix today 20 [...] acute care hospitalization Jean-Claude Albrecht D.M.D., M.D. [facility] [place] [facility] [place] [address] Jf Jones MD - 04/30/2014 11:08 AM [...] at referring hospital. She was transferred to [facility] fo r active hemorrhage and underwent IR [...] malnutrition: - pulled DHT- refusing replacement. Await LUNCH WAGON OPERATOR eval if passes swallow will give chance to prove adequate po intake. Expect will require TFs again Dysphagia: await LUNCH WAGON OPERATOR eval today. Cont meds and feed [...] Call team 01/11 for questions: Team Pager [phone] ATTENDING ADDENDUM: I saw and examined Mackenzie [...] Marge Harris PA-C. Jf Wiseman MD FACS director of operations Division of Trauma, Critical Care, and Acute Care Surgery [phone] Angeles Acevedo MD - 04/30/2014 1:18 AM PST [facility] DEPARTMENT OF SURGERY EGS ICU Progress Note Division of Trauma and Critical Care ID: Mackenzie Hartley is a 58 year old female with COPD, Crohn's disease, chronic pain, and 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 while anticoagulated with warfarin transferre d to [facility] from [facility] for management of retroperitoneal bleed. [...] thrombosis while anticoagulated with warfarin transferred to [facility] from [facility] for management of retroperitoneal bleed. Overall, she is improving. However, remains tachycardic with leukocytosis -- difficult to t ease out if this is secondary to asplenia. Will obtain CT abd pelvis today to clarify. Neuro: dilaudid IV PRN and intermittent versed for sedation CV: HD stable L QUAHOGGER PSA resolved Pulm: titrate to O2 >92% [...] MD General Surgery Resident, R3 Pager [phone] [facility] [place] [address] [facility] [address] Aravind Morales MD - 04/29/2014 11:43 AM PSTICU Attending: I saw and examined Mackenzie Hartley ([id number]) with Erin Christensen PA-C on 04/29/14 and [...] of time documented by Kaci Massey MD Financial Services Director Trauma, Critical Care & Acute Care Surgery [...] at referring hospital. She was transferred to [facility] fo r active hemorrhage. Hospital Day #6 [...] resolving cont current H2O via DHT Dysphagia: LUNCH WAGON OPERATOR consulted, ice chips only. Cont meds [...] Call team 01/11 for questions: Team Pager [phone] Chelly Blum MD,M PH - 04/28/2014 3:03 [...] at referring hospital. She was transferred to [facility] fo r active hemorrhage. Hospital Day #5 [...] Hyernatremia: resolving, reduce H2O to 30ml/hr Dysphagia: LUNCH WAGON OPERATOR consulted, ice chips only. Cont meds [...] Call team 01/11 for questions: Team Pager [phone] Angeles Acevedo MD - 04/28/2014 5:18 AM PST [facility] DEPARTMENT OF SURGERY EGS ICU Progress Note Division of Trauma and Critical Care ID: Mackenzie Hartley is a 58 year old female with COPD, Crohn's disease, chronic pain, and 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 while anticoagulated with warfarin transferre d to [facility] from [facility] for management of retroperitoneal bleed. She is s/p ex lap, splenectomy, and packing with lap pads at OSH and from reopening of laparotomy, evacua tion of 2-3 L of intraabdominal hematoma, closure of open abdomen SUBJECTIVE: Extubated, neurologically doing much better. 3 L NC Underwent successful thrombin injection of L QUAHOGGER pseudoaneurysm by IR 04/26 MEDICATIONS: Current facility-administered [...] thrombosis while anticoagulated with warfarin transferred to [facility] from [facility] for management of retroperitoneal bleed. Neuro: dilaudid IV PRN and intermittent versed for sedation CV: HD stable Per vascular: arterial duplex of L QUAHOGGER to assess for stability of PSA shows [...] Hannah MD General Surgery Resident, R3 Pager [phone] [facility] [place] [address] [place] [facility] [place] [address] Xin Irizarry M D - 04/27/2014 11:55 [...] diagnosti c imaging and laboratory study results [facility] DEPARTMENT: [id number] - [facility] [place] Place of Service: - Inpatient Date of Service: 04-27-2014 Modifiers: GC - Resident Involved Suggested CPT: 95841 - Initial, Comp; Mod complex 50 min XIN AGEE MD [facility] [address] [place] [address] wpriya Rudy Markham Adriel - 04/27/2014 11:55 AM PST Hematology Consult Progress Note Primary Service: EGS Primary Attending: Jf Wiseman MD Hospital Length of Stay: 4 Interval Events: - extubated - thrombin injection to QUAHOGGER pseudoaneurysm - heparin gtt started last night Subjective: Patient is unable to provide history as she remains encephalopathic. Did speak with her , who confirmed history obtained in initial heme consult note. States she givens s been on warfarin since her 2011 [facility] admission with no known thrombotic events [...] assessme nt and plan. Rudy Sarmiento, DO [facility] Internal Medicine PGY3 Pager [phone] Mirela Josue MD - 04/27/2014 10:[address] [facility] Department of Surgery Progress Note Author: [...] underwent successful thrombin injection of the left QUAHOGGER pseudoaneurysm by IR last night. Heparin restarted [...] ultraso und guided thrombin injection of left QUAHOGGER pseudoanuerysm. Will order arterial duplex of left QUAHOGGER to assess for stability of pseudoaneurysm Monitor [...] - hemorrhage vs [facility] LUCY MARKS MD [address] [place] [address] This assessment and plan was formulated both independently and in conjunction with the [facility] ular Surgery Team as well as the attending provider of record above regarding management of this patient and their medical issues. It is accurate to the best of my knowledge, and is s ubject to modification based on clinical developments, new data, or final imaging results. [facility] staff I saw and evaluated the patient. I agree with the findings and the plan of care as petern laxmi in the resident s note. Left femoral pseudoaneurysm appears resolved. Stable from the [facility] standpoint. No further imaging required unless clinical status changes. Mirela Thompson M.D. [facility] Vascular Surgery [address] [place] [address] Email: [email or web address] Jf Jones MD - [...] at referring hospital. She was transferred to [facility] fo r active hemorrhage. Hospital Day #4 [...] H2O Hyernatremia: water 100ml/hr via DHT Dysphagia: LUNCH WAGON OPERATOR consulted, ice chips only JULIANE: ATN [...] Call team 01/11 for questions: Team Pager [phone] ATTENDING ADDENDUM: I saw and examined Mackenzie [...] Erin Christensen PA-C. Jf Wiseman MD FACS director of operations Division of Trauma, Critical Care, and Acute Care Surgery [id number] aElda tejada MD - 04/27/2014 4:52 AM PST EMERGENCY GENERAL SURGERY ICU PROGRESS NOTE: Attending Physician: Jf Wiseman MD 04/27/2014 ID: Mackenzie Hartley is a 58 year old female with COPD, Crohn's disease, chronic pain, and coagulopa thy resulting in splenic artery thrombosis while anticoagulated with warfarin transferred to [facility] from [facility] for management of retroperitoneal bleed. [...] HR EVENTS: - Incidentally found to have QUAHOGGER pseudoaneurysm, injected with thrombin by IR - [...] thrombosis while anticoagulated with warfarin [facility] HOSPITAL from [facility] for management of retroperitoneal bleed. [...] this patient encounter. 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 Lenny Calhoun MD (Fellow)/pager: Dr. Vang [phone] Medications Procedure Meds: Dilaudid IV 0.5mg Midazolam [...] at referring hospital. She was transferred to [facility] fo r active hemorrhage. Hospital Day #4 [...] Call team 01/11 for questions: Team Pager [phone] Angeles Acevedo MD - 04/26/2014 5:24 AM PST [facility] DEPARTMENT OF SURGERY EGS ICU Progress Note Division of Trauma and Critical Care ID: Mackenzie Hartley is a 58 year old female with COPD, Crohn's disease, chronic pain, and 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 while anticoagulated with warfarin transferre d to [facility] from [facility] for management of retroperitoneal bleed. [...] thrombosis while anticoagulated with warfarin transferred to [facility] from [facility] for management of retroperitoneal bleed. [...] Hannah MD General Surgery Resident, R3 Pager [phone] [facility] [place] [address] [address] [facility] [address] ithya Bailey MD - 04/25/2014 6:40 AM PSTTSICU Attending 04/25/14 58 yo woman critically ill with complex surgical and medical history, transferred to [facility] intraabdominal and retroperitoneal hemorrhage 2 [...] Call team 01/11 for questions: Team Pager [phone] Angeles Acevedo MD - 04/25/2014 4:39 AM PST [facility] DEPARTMENT OF SURGERY EGS ICU Progress Note Division of Trauma and Critical Care ID: Mackenzie Hartley is a 58 year old female with COPD, Crohn's disease, chronic pain, and 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 while anticoagulated with warfarin transferre d to [facility] from [facility] for management of retroperitoneal bleed. [...] thrombosis while anticoagulated with warfarin transferred to [facility] from [facility] for management of retroperitoneal bleed. [...] Hannah MD General Surgery Resident, R3 Pager [phone] [facility] [place] [address] Rich Pappas MD - 04/24/2014 9:21 AM [...] extubate Initial surgical contact: Miladis at pager [phone] Nithya Andres MD - 04/24/2014 5:25 AM [...] exploration at referring hospital. IR embolization at [facility]. Hospital Day #1 ICU Day #2 [...] Call team 01/11 for questions: Team Pager [phone] Angeles Acevedo MD - 04/24/2014 2:04 AM PST [facility] DEPARTMENT OF SURGERY EGS Consult Progress Note Division of Trauma and Critical Care ID: Mackenzie Hartley is a 58 year old female with COPD, Crohn's disease, chronic pain, and 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 while anticoagulated with warfarin transferre d to [facility] from [facility] for management of retroperitoneal bleed. [...] thrombosis while anticoagulated with warfarin transferred to [facility] from [facility] for management of retroperitoneal bleed. [...] Hannah MD General Surgery Resident, R3 Pager [phone] [facility] [address] [place] [facility] [place] [address] Rudy Parker M D - 04/23/2014 5:07 PM PSTBRIEF INTERVENTIONAL RADIOLOGY PROCEDURE NOTE DATE: 04/23/2014 5:07 PM PROCEDURE: Pelvic angiography with glue embolization PRE-PROCEDURE DIAGNOSIS: Retroperitoneal hematoma POST-PROCEDURE DIAGNOSIS: Same IR STAFF: Lenny IR FELLOW: Ciera ACCESS: L QUAHOGGER MEDICATIONS: Fentanyl IV 150 mcg Midazolam IV [...] | + +--------+ + + + | [facility] PORTABLE | Routin | 04/27/2014 | [...] + + + + + | [facility] | [address] | [place] [address] | | | JANELL SHARP | BERTRAM [...] - MARILYN | [address] | [place], [place] | | | [facility] | [address] | [address] | | | TESTS | | | [...] [facility] | [address] | [place] [address] | | | SERVICES, CORE | PARK [...] [facility] | [address] | [place] [address] | | | SERVICES, CORE | PARK [...] | | | LABORATORY | | | MONTSERRATIAN | | | SERVICES, | | | [...] | + + + + + | [facility] | [address] | [place] [address] | | | SERVICES, JANELL | BERTRAM [...] - MARQUAM | [address] | [place], [place] | | | [facility] | [facility] | [address] | | | TESTS | | | [...] (H) | 60 - 99 mg/dL | [facility] - | | | GLUCOSE, | [...] MARILYN | [address] | [place], [place] | | | [facility] | [address] | [address] | | | TESTS | | | [...] | + + + + + | [facility] | [address] | [place] [address] | | | SERVICES, CORE | [address] | | | + + + + + MAGNESIUM, PLASMA (05/12/2014 1:07 AM PST) + +---------+ + + + | Component | Value | Ref Range | Performed | Pathologist | | | | | At | Signature | + +---------+ + + + | MAGNESIUM,P | 1.5 (L) | 1.8 - 2.5 mg/dL | [facility] | | | LASMA | | | [...] | + + + + + | [facility] | [address] | [place] [address] | | | SERVICES, CORE | BERTRAM [...] | | | LABORATORY | | | MONTSERRATIAN | | | SERVICES, | | | [...] + + + + + | [facility] | [address] | [place] [address] | | | JANELL SHARP | BERTRAM [...] + + + + + | [facility] | [address] | [place] [address] | | | SERVICES, JANELL | BERTRAM [...] - MARQUAM | [address] | [place], [place] | | | [facility] | [address] | [address] | | | TESTS | | | [...] SANDERS | [address] | [place], [place] | | | [facility] | [address] | [address] | | | TESTS | | | [...] + | [facility] | [address] | [place] [address] | | | SERVICES, CORE | PARK [...] | + + + + + | [facility] | [address] | [place] [address] | | | SERVICES, CORE | BERTRAM [...] | | | LABORATORY | | | MONTSERRATIAN | | | SERVICES, | | | [...] the MDRD equation recommended by the | [facility] | | National Kidney Disease Education [...] [facility] | [address] | [place] [address] | | | SERVICES, CORE | PARK [...] | + + + + + | [facility] | [address] | [place] [address] | | | SERVICES, JANELL | BERTRAM [...] (H) | 60 - 99 mg/dL | [facility] - | | | GLUCOSE, | [...] SANDERS | [address] | [place], [place] | | | [facility] | [facility] | [address] | | | TESTS | | | [...] SANDERS | [address] | [place], [place] | | | [facility] | [address] | [address] | | | TESTS | | | [...] | | + +---------+ + + | [facility] DEPARTMENT OF | | | | [...] MARILYN | [address] | [place], [place] | | | [facility] | [address] | [address] | | | TESTS | | | [...] (H) | 60 - 99 mg/dL | [facility] - | | | GLUCOSE, | [...] SANDERS | [address] | [place], [place] | | | [facility] | [address] | [address] | | | TESTS | | | [...] + + + + + | [facility] | [address] | [place] [address] | | | SERVICES, CORE | PARK [...] | + + + + + | [facility] | [address] | [place] [address] | | | SERVICES, CORE | BERTRAM [...] | | | LABORATORY | | | MONTSERRATIAN | | | SERVICES, | | | [...] the MDRD equation recommended by the | [facility] | | National Kidney Disease Education [...] [facility] | [address] | [place] [address] | | | SERVICES, CORE | BERTRAM [...] [facility] | [address] | [place] [address] | | | ARON, JANELL | BERTRAM [...] (H) | 60 - 99 mg/dL | [facility] - | | | GLUCOSE, | [...] MARQUAM | [address] | [place], [place] | | | [facility] | [facility] | [address] | | | TESTS | | | [...] SANDERS | [address] | [place], [place] | | | [facility] | [address] | [address] | | | TESTS | | | [...] MARQUAM | [address] | [place], [place] | | | [facility] | [facility] | [address] | | | TESTS | | | [...] + + + + + | [facility] | [address] | [place] [address] | | | SERVICES, CORE | BERTRAM [...] [facility] | [address] | [place] [address] | | | SERVICES, CORE | PARK [...] | | | LABORATORY | | | MONTSERRATIAN | | | SERVICES, | | | [...] | + + + + + | [facility] | [address] | [place] [address] | | | SERVICES, CORE | PARK [...] | + + + + + | [facility] | [address] | [place] [address] | | | SERVICES, CORE | BERTRAM [...] MARGOPIAM | [address] | [place], [place] | | | [facility] | [address] | [address] | | | TESTS | | | [...] MARILYN | [address] | [place], [place] | | | [facility] | [address] | [address] | | | TESTS | | | [...] [facility] | [address] | [place] [address] | | | SERVICES, CORE | PARK [...] + + + + + | [facility] | [address] | [place] [address] | | | SERVICES, CORE | PARK [...] | | | LABORATORY | | | MONTSERRATIAN | | | SERVICES, | | | [...] + + + + + | [facility] | [address] | [place] [address] | | | SERVICES, JANELL | BERTRAM [...] + + + + + | [facility] | [address] | [place] [address] | | | SERVICES, JANELL | BERTRAM [...] MARQUAM | [address] | [place], [place] | | | [facility] | [address] | [address] | | | TESTS | | | [...] (H) | 60 - 99 mg/dL | [facility] - | | | GLUCOSE, | [...] MARILYN | [address] | [place], [place] | | | [facility] | [address] | [address] | | | TESTS | | | [...] + + + + + | [facility] | [address] | [place] [address] | | | SERVICES, CORE | PARK [...] | + + + + + | [facility] | [address] | [place] [address] | | | SERVICES, CORE | PARK [...] | | | LABORATORY | | | MONTSERRATIAN | | | SERVICES, | | | [...] the MDRD equation recommended by the | [facility] | | National Kidney Disease Education Program. [...] + + + + + | [facility] | [address] | [place] [address] | | | JANELL SHARP | BERTRAM [...] + + + + + | [facility] | [address] | [place] [address] | | | SERVICES, JANELL | BERTRAM [...] SANDERS | [address] | [place], [place] | | | [facility] | [address] | [address] | | | TESTS | | | [...] | + + + + + | [facility] | [address] | [place] [address] | | | SERVICES, CORE | BERTRAM [...] MARQUAM | [address] | [place], [place] | | | [facility] | [address] | [address] | | | TESTS | | | [...] - DAVIDAM | [address] | [place], [place] | | | [facility] | [address] | [address] | | | TESTS | | | [...] [facility] | [address] | [place] [address] | | | SERVICES, CORE | PARK [...] LABORATORY | [address] | [place] [address] | | | SERVICES, CORE | PARK [...] | | | LABORATORY | | | MONTSERRATIAN | | | SERVICES, | | | [...] | + + + + + | [facility] | [address] | [place] [address] | | | SERVICES, JANELL | BERTRAM [...] + + + + + | [facility] | [address] | [place] [address] | | | JANELL SHARP | BERTRAM [...] | + + + + + | [facility] | [address] | [place] [address] | | | SERVICES, CORE | PARK [...] + + + + + | [facility] | [address] | [place] [address] | | | SERVICES, CORE | PARK [...] | + + + + + | [facility] | [address] | [place] [address] | | | SERVICES, CORE | BERTRAM [...] | | | LABORATORY | | | MONTSERRATIAN | | | SERVICES, | | | [...] the MDRD equation recommended by the | [facility] | | National Kidney Disease Education [...] | + + + + + | [facility] | [address] | [place] [address] | | | SERVICES, CORE | PARK [...] (H) | 0.90 - 1.20 INR | [facility] | | | | | | LABORATORY [...] + + + + + | [facility] | [address] | [place] [address] | | | SERVICES, CORE | PARK [...] + + + + | [facility] | [address] | [place], [place] | | | [facility] | [address] | [address] | | + + + + + [...] | + + + + + | [facility] | [address] | [place] [address] | | | SERVICES, CORE | PARK [...] | + + + + + | [facility] | [address] | [place] [address] | | | SERVICES, CORE | BERTRAM [...] [facility] | [address] | [place] [address] | | | SERVICES, CORE | PARK [...] | + + + + + | [facility] | [address] | [place] [address] | | | SERVICES, CORE | BERTRAM [...] | | | LABORATORY | | | MONTSERRATIAN | | | SERVICES, | | | [...] the MDRD equation recommended by the | [facility] | | National Kidney Disease Education [...] + + + + + | [facility] | [address] | [place] [address] | | | SERVICES, CORE | PARK [...] (H) | 0.90 - 1.20 INR | [facility] | | | | | | LABORATORY [...] [facility] | [address] | [place] [address] | | | SERVICES, CORE | PARK [...] | + + + + + | [facility] | [address] | [place] [address] | | | SERVICES, CORE | BERTRAM [...] [facility] | [address] | [place] [address] | | | SERVICES, CORE | PARK [...] + | [facility] | [address] | [place] [address] | | | SERVICES, CORE | PARK [...] + + + + + | [facility] | [address] | [place] [address] | | | SERVICES, CORE | BERTRAM [...] (H) | 60 - 99 mg/dL | [facility] - | | | GLUCOSE, | [...] + + + | [facility] | [address] | [place], [place] | | | [facility] | [address] | [address] | | | TESTS | | | [...] | | + +---------+ + + | [facility] DEPARTMENT OF | | | | [...] [facility] | [address] | [place] [address] | | | ARON, JANELL | PARK [...] | + + + + + | [facility] | [address] | [place] [address] | | | SERVICES, CORE | BERTRAM [...] | | | LABORATORY | | | MONTSERRATIAN | | | SERVICES, | | | [...] + + + + + | [facility] | [address] | [place] [address] | | | SERVICES, CORE | PARK [...] + + + + + | [facility] | [address] | [place] [address] | | | SERVICES, CORE | [address] | | | + + + + + MAGNESIUM, PLASMA (05/02/2014 10:34 PM PST) + +-------+ + + + | Component | Value | Ref Range | Performed | Pathologist | | | | | At | Signature | + +-------+ + + + | MAGNESIUM,P | 2.0 | 1.8 - 2.5 mg/dL | [facility] | | | LASMA | | | [...] | + + + + + | [facility] | [address] | [place] [address] | | | SERVICES, CORE | PARK [...] | | | LABORATORY | | | MONTSERRATIAN | | | SERVICES, | | | [...] the MDRD equation recommended by the | [facility] | | National Kidney Disease Education Program. [...] + + + + + | [facility] | [address] | [place] [address] | | | JANELL SHARP | BERTRAM [...] | | | LABORATORY | | | MONTSERRATIAN | | | SERVICES, | | | [...] | + + + + + | [facility] | [address] | [place] [address] | | | SERVICES, CORE | BERTRAM [...] [facility] | [address] | [place], [place] | | | THERAPY | [address] | [address] | | + + + + + [...] [facility] | [address] | [place], [place] | | | THERAPY | [address] | [address] | | + + + + + [...] | + + + + + | [facility] | [address] | [place] [address] | | | SERVICES, CORE | BERTRAM [...] [facility] | [address] | [place] [address] | | | SERVICES, CORE | PARK [...] | + + + + + | [facility] | [address] | [place] [address] | | | ARON, JANELL | BERTRAM [...] | | | LABORATORY | | | MONTSERRATIAN | | | SERVICES, | | | [...] + + + + + | [facility] | [address] | [place] [address] | | | SERVICES, CORE | PARK [...] + | [facility] | [address] | [place] [address] | | | SERVICES, CORE | BERTRAM [...] DEPT OF | [address] | [place], [place] | | | CARDIOLOGY | [address] | [address] | | + + + + + X-RAY PORTABLE CHEST 1 VIEW (05/02/2014 2:11 AM PST) + + + + + + | Component | Value | Ref Range | Performed | Pathologist | | | | | At | Signature | + + + + + + | X-RAY | EXAM: KS CHEST 1 VIEW | | | | [...] | | + +---------+ + + | [facility] DEPARTMENT OF | | | | [...] + + + + + | [facility] | [address] | [place] [address] | | | SERVICES, JANELL | BERTRAM [...] (H) | 60 - 99 mg/dL | [facility] - | | | GLUCOSE, | [...] SANDERS | [address] | [place], [place] | | | [facility] | [facility] | [address] | | | TESTS | | | [...] MARILYN | [address] | [place], [place] | | | [facility] | [address] | [address] | | | TESTS | | | [...] | + + + + + | [facility] | [address] | [place] [address] | | | SERVICES, JANELL | [address] | | | + + + + + X-RAY PORTABLE CHEST 1 VIEW (05/01/2014 3:37 AM PST) + + + + + + | Component | Value | Ref Range | Performed | Pathologist | | | | | At | Signature | + + + + + + | X-RAY | EXAM: KS CHEST 1 VIEW | | | | [...] Bilateral | | | | | | [id number] | | | | | | pleural [...] | | | | | | MARGARITO ACRREROuthor: EMIL | | | | | | [...] + + + + + | [facility] | [address] | [place] [address] | | | SERVICES, CORE | PARK [...] | + + + + + | [facility] | [address] | [place] [address] | | | SERVICES, CORE | PARK [...] | | | LABORATORY | | | MONTSERRATIAN | | | SERVICES, | | | [...] the MDRD equation recommended by the | [facility] | | National Kidney Disease Education Program. [...] + + + + + | [facility] | [address] | [place] [address] | | | JANELL SHARP | BERTRAM [...] + + + + + | [facility] | [address] | [place] [address] | | | SERVICESJANELL | [address] [...] SANDERS | [address] | [place], [place] | | | [facility] | [address] | [address] | | | TESTS | | | [...] | | + +---------+ + + | [facility] DEPARTMENT OF | | | | [...] | | + +---------+ + + | [facility] DEPARTMENT OF | | | | | RADIOLOGY | | | | + +---------+ + + X-RAY PORTABLE CHEST 1 VIEW (04/30/2014 9:22 AM PST) + + + + + + | Component | Value | Ref Range | Performed | Pathologist | | | | | At | Signature | + + + + + + | X-RAY | STUDY: KS CHEST 1 VIEW | | | | [...] | | + +---------+ + + | [facility] DEPARTMENT OF | | | | [...] | + + + + + | [facility] | [address] | [place] [address] | | | SERVICES, CORE | BERTRAM [...] | + + + + + | [facility] | [address] | [place] [address] | | | SERVICES, CORE | BERTRAM [...] [facility] | [address] | [place] [address] | | | JANELL SHARP | BERTRAM [...] | | | LABORATORY | | | MONTSERRATIAN | | | SERVICES, | | | [...] [facility] | [address] | [place] [address] | | | SERVICES, CORE | [address]ARK [...] | | | LABORATORY | | | MONTSERRATIAN | | | SERVICES, | | | [...] (H) | 4 - 11 mmol/L | [facility] | | | GAP(ALB | | [...] + + + + + | [facility] | [address] | [place] [address] | | | SERVICES, CORE | BERTRAM [...] MARILYN | [address] | [place], [place] | | | [facility] | [facility] | [address] | | | TESTS | | | [...] [facility] | [address] | [place] [address] | | | SERVICES, CORE | BERTRAM [...] [facility] | [address] | [place] [address] | | | SERVICES, CORE | PARK [...] (H) | 60 - 99 mg/dL | [facility] | | | PLASMA | | | [...] | | | LABORATORY | | | [facility] | | | SERVICES, | | | [...] + + + + + | [facility] | [address] | [place] [address] | | | SERVICES, JANELL | BERTRAM [...] | + + + + + | [facility] | [address] | [place] [address] | | | SERVICES, CORE | BERTRAM [...] + + + + + | [facility] | [address] | [place] [address] | | | JANELL SHARP | BERTRAM [...] (H) | 60 - 99 mg/dL | [facility] - | | | GLUCOSE, | [...] [facility] | [address] | [place], [place] | | | [facility] | [address] | [address] | | | TESTS | | | [...] [facility] | [address] | [place] [address] | | | SERVICES, CORE | PARK [...] [facility] | [address] | [place] [address] | | | SERVICES, CORE | PARK [...] [facility] | [address] | [place] [address] | | | ARON, JANELL | BERTRAM [...] [facility] | [address] | [place] [address] | | | SERVICES, CORE | PARK [...] | | | LABORATORY | | | [facility]ATIAN | | | SERVICES, | | | [...] + + + + + | [facility] | [address] | [place] [address] | | | SERVICES, CORE | BERTRAM [...] | + + + + + | [facility] | [address] | [place] [address] | | | JANELL SHARP | BERTRAM [...] + + + + + | [facility] | [address] | [place] [address] | | | SERVICES, CORE | PARK [...] | | + +---------+ + + | [facility] DEPARTMENT OF | | | | [...] | + + + + + | [facility] | [address] | [place] [address] | | | SERVICES, JANELL | BERTRAM [...] + + + | [facility] | [address] | [place], [place] | | | [facility] | [address] | [address] | | | TESTS | | | | + + + + + X-RAY ABD LTD FEEDING TUBE EVAL PORTABLE (04/27/2014 10:33 AM PST) + + + + + + | Component | Value | Ref Range | Performed | Pathologist | | | | | At | Signature | + + + + + + | X-RAY ABD | STUDY: KS ABD LTD | | | | | [...] [facility] | [address] | [place] [address] | | | ARON, JANELL | PARK [...] | + + + + + | [facility] | [address] | [place] [address] | | | SERVICES, CORE | BERTRAM [...] | + + + + + | [facility] | [address] | [place] [address] | | | SERVICES, CORE | BERTRAM [...] [facility] | [address] | [place] [address] | | | SERVICES, CORE | BERTRAM [...] | | | LABORATORY | | | [facility]IAN | | | SERVICES, | | | [...] | + + + + + | [facility] | [address] | [place] [address] | | | SERVICES, CORE | PARK [...] [facility] | [address] | [place] [address] | | | SERVICES, CORE | PARK [...] | + + + + + | [facility] | [address] | [place] [address] | | | ARON, JANELL | BERTRAM [...] + + + + + | [facility] | [address] | [place] [address] | | | SERVICES, JANELL | BERTRAM [...] | + + + + + | [facility] | [address] | [place] [address] | | | SERVICES, CORE | BERTRAM [...] [facility] | [address] | [place] [address] | | | SERVICES, CORE | PARK [...] | | | LABORATORY | | | MONTSERRATIAN | | | SERVICES, | | | [...] | + + + + + | [facility] | [address] | [place] [address] | | | SERVICES, CORE | BERTRAM [...] PRIMARY | | | | | | RAILROAD OPERATING ENGINEER: Rudy | | | | | | [...] [facility] | [address] | [place], [place] | | | OSCAR POINT OF CARE | [address] | [address] | | | TESTS | | | [...] | | | | | | Kirstie [place] | | | | + + + [...] | + + + + + | [facility] | [address] | [place] [address] | | | ARON, JANELL | BERTRAM [...] | | + +---------+ + + | [facility] DEPARTMENT OF | | | | [...] | + + + + + | [facility] | [address] | [place] [address] | | | SERVICES, CORE | BERTRAM [...] | + + + + + | [facility] | [address] | [place] [address] | | | SERVICES, CORE | BERTRAM [...] | + + + + + | [facility] | [address] | [place] [address] | | | JANELL SHARP | BERTRAM [...] + + + + + | [facility] | [address] | [place] [address] | | | SERVICES, CORE | BERTRAM [...] | + + + + + | [facility] | [address] | [place] [address] | | | SERVICES, CORE | PARK [...] | | | LABORATORY | | | MONTSERRATIAN | | | SERVICES, | | | [...] the MDRD equation recommended by the | [facility] | | National Kidney Disease Education [...] + + + + + | [facility] | [address] | [place] [address] | | | SERVICES, CORE | BERTRAM [...] [facility] | [address] | [place] [address] | | | SERVICES, CORE | PARK [...] + + + + + | [facility] | [address] | [place] [address] | | | SERVICES, CORE | BERTRAM [...] (H) | 60 - 99 mg/dL | [facility] - | | | GLUCOSE, | [...] [facility] | [address] | [place], [place] | | | PEPE MOORE OF [place] | [address] | [address] | | | TESTS | | | [...] | | | LABORATORY | | | MONTSERRATIAN | | | SERVICES, | | | [...] the MDRD equation recommended by the | [facility] | | National Kidney Disease Education [...] | + + + + + | [facility] | [address] | [place] [address] | | | JANELL SHARP | BERTRAM [...] (H) | 60 - 99 mg/dL | [facility] - | | | GLUCOSE, | [...] [facility] | [address] | [place], [place] | | | OSCAR POINT OF CARE | [address] | [address] | | | TESTS | | | [...] [facility] | [address] | [place] [address] | | | SERVICES, CORE | PARK [...] | + + + + + | [facility] | [address] | [place] [address] | | | ARON, JANELL | BERTRAM [...] + + + + | PRODUCT | [id number] | | [facility] | | | UNIT [...] + + + + | BLOOD | [id number] | | [facility] | | | PRODUCT [...] DEPARTMENT OF | [address] | [place] [address] | | | PATHOLOGY | [address] [...] + + + + | PRODUCT | [id number] | | [facility] | | | UNIT [...] + + + + | BLOOD | [id number] | | [facility] | | | PRODUCT [...] + + + + + | [facility] DEPARTMENT OF | [address] | [place] [address] | | | PATHOLOGY | [address] [...] [facility] | [address] | [place] [address] | | | SERVICES, CORE | PARK [...] + + + + + | [facility] | [address] | [place] [address] | | | SERVICES, CORE | BERTRAM [...] | | | LABORATORY | | | MONTSERRATIAN | | | SERVICES, | | | [...] + | [facility] | [address] | [place] [address] | | | SERVICES, CORE | PARK [...] [facility] | [address] | [place] [address] | | | SERVICES, CORE | BERTRAM [...] | + + + + + | [facility] | [address] | [place] [address] | | | SERVICES, CORE | PARK [...] [facility] | [address] | [place] [address] | | | SERVICES, CORE | PARK [...] + + + + + | [facility] | [address] | [place] [address] | | | SERVICES, CORE | BERTRAM [...] + + + | [facility] | [address] | [place], [place] | | | OSCAR POINT OF CARE | [address] | [address] | | | TESTS | | | [...] [facility] | [address] | [place], [place] | | | OSCAR POINT OF CARE | [address] | [address] | | | TESTS | | | [...] | + + + + + | [facility] | [address] | [place] [address] | | | SERVICES, JANELL | BERTRAM [...] | + + + + + | [facility] | [address] | [place] [address] | | | SERVICES, JANELL | BERTRAM [...] + + + + + | [facility] | [address] | [place] [address] | | | SERVICES, CORE | PARK [...] | + + + + + | [facility] | [address] | [place] [address] | | | SERVICES, JANELL | [address] | | | + + + + + X-RAY PORTABLE CHEST 1 VIEW (04/24/2014 5:32 AM PST) + + + + + + | Component | Value | Ref Range | Performed | Pathologist | | | | | At | Signature | + + + + + + | X-RAY | STUDY: [place] CHEST 1 VIEW | | | | [...] [facility] | [address] | [place] [address] | | | SERVICES, CORE | PARK [...] | | | LABORATORY | | | MONTSERRATIAN | | | SERVICES, | | | [...] | + + + + + | [facility] | [address] | [place] [address] | | | SERVICES, JANELL | BERTRAM [...] | + + + + + | [facility] | [address] | [place] [address] | | | SERVICES, CORE | PARK [...] + + + + + | [facility] | [address] | [place] [address] | | | JANELL SHARP | PARK [...] RESPIRATORY | [address] | [place], [place] | | | THERAPY | [address] | [address] | | + + + + + [...] [facility] | [address] | [place], [place] | | | THERAPY | [address] | [address] | | + + + + + [...] | | | LABORATORY | | | MONTSERRATIAN | | | SERVICES, | | | [...] | + + + + + | [facility] | [address] | [place] [address] | | | SERVICES, CORE | BERTRAM [...] + + + + + | [facility] | [address] | [place] [address] | | | SERVICES, JANELL | [address] [...] + + + + + | [facility] | [address] | [place] [address] | | | SERVICES, CORE | PARK [...] (L) | 36.0 - 46.0 % | [facility] | | | | | | LABORATORY [...] [facility] | [address] | [place] [address] | | | SERVICES, CORE | PARK [...] [facility] | [address] | [place] [address] | | | SERVICES, CORE | PARK [...] + + + + + | [facility] | [address] | [place] [address] | | | SERVICES, CORE | PARK [...] | + + + + + | [facility] | [address] | [place] [address] | | | SERVICES, CORE | PARK [...] | | | LABORATORY | | | MONTSERRATIAN | | | SERVICES, | | | [...] the MDRD equation recommended by the | [facility] | | National Kidney Disease Education [...] + + + + + | [facility] | [address] | [place] [address] | | | SERVICES, CORE | BERTRAM [...] | + + + + + | [facility] | [address] | [place] [address] | | | SERVICES, CORE | BERTRAM [...] | [facility] | 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 [...] | | | | artery. A 3 Italian | | | | | | microcatheterwas [...] DEPT OF | [address] | [place], [place] | | | CARDIOLOGY | [address] | [address] | | + + + + + [...] + + + + | PRODUCT | [id number] | | [facility] | | | UNIT [...] + + + + | BLOOD | [id number] | | [facility] | | | PRODUCT [...] DEPARTMENT OF | [address] | [place], [place] [address] | | | PATHOLOGY | [address] [...] + + + + | PRODUCT | [id number] | | [facility] | | | UNIT [...] + + + + | BLOOD | [id number] | | [facility] | | | PRODUCT [...] DEPARTMENT OF | [address] | [place] [address] | | | PATHOLOGY | [address] [...] + + + + | PRODUCT | [id number] | | [facility] | | | UNIT [...] + + + + | BLOOD | [id number] | | [facility] | | | PRODUCT [...] DEPARTMENT OF | [address] | [place], [place] [address] | | | PATHOLOGY | [address] [...] + + + + | PRODUCT | [id number] | | [facility] | | | UNIT [...] + + + + | BLOOD | [id number] | | [facility] | | | PRODUCT [...] | + + + + + | [facility] | [address] | [place] [address] | | | PATHOLOGY | [address] [...] + + + + | PRODUCT | [id number] | | [facility] | | | UNIT [...] + + + + | BLOOD | [id number] | | [facility] | | | PRODUCT [...] DEPARTMENT OF | [address] | [place] [address] | | | PATHOLOGY | [address] [...] + + + + | PRODUCT | [id number] | | [facility] | | | UNIT [...] + + + + | BLOOD | [id number] | | [facility] | | | PRODUCT [...] + + + + + | [facility] DEPART[facility] | [address] | [place] [address] | | | PATHOLOGY | [address] | | | + + + + + X-RAY PORTABLE CHEST 1 VIEW (04/23/2014 11:41 AM PST) + + + + + + | Component | Value | Ref Range | Performed | Pathologist | | | | | At | Signature | + + + + + + | X-RAY | EXAM: [place] CHEST 1 VIEW | | | | [...] + + + + | PRODUCT | [id number] | | [facility] | | | UNIT [...] + + + + | BLOOD | [id number] | | [facility] | | | PRODUCT [...] DEPARTMENT OF | [address] | [place] [address] | | | PATHOLOGY | [address] [...] + + + + | PRODUCT | [id number] | | [facility] | | | UNIT [...] + + + + | BLOOD | [id number] | | [facility] | | | PRODUCT [...] | + + + + + | [facility] | [address] | [place] [address] | | | PATHOLOGY | [address] [...] + + + + | PRODUCT | [id number] | | [facility] | | | UNIT [...] + + + + | BLOOD | [id number] | | [facility] | | | PRODUCT [...] DEPARTMENT OF | [address] | [place] [address] | | | PATHOLOGY | [address] [...] + + + + | PRODUCT | [id number] | | [facility] | | | UNIT [...] + + + + | BLOOD | [id number] | | [facility] | | | PRODUCT [...] | + + + + + | [facility] | [address] | [place] [address] | | | PATHOLOGY | [address] [...] + + + + | PRODUCT | [id number] | | [facility] | | | UNIT [...] + + + + | BLOOD | [id number] | | [facility] | | | PRODUCT [...] DEPARTMENT OF | [address] | [place] [address] | | | PATHOLOGY | [address] [...] + + + + | PRODUCT | [id number] | | [facility] | | | UNIT [...] + + + + | BLOOD | [id number] | | [facility] | | | PRODUCT [...] | + + + + + | [facility] | [address] | [place] [address] | | | PATHOLOGY | [address] [...] + + + + | PRODUCT | [id number] | | [facility] | | | UNIT [...] + + + + | BLOOD | [id number] | | [facility] | | | PRODUCT [...] DEPARTMENT OF | [address] | [place] [address] | | | PATHOLOGY | [address] [...] + + + + | PRODUCT | [id number] | | [facility] | | | UNIT [...] + + + + | BLOOD | [id number] | | [facility] | | | PRODUCT [...] | + + + + + | [facility] | [address] | [place] [address] | | | PATHOLOGY | [address] [...] + + + + | PRODUCT | [id number] | | [facility] | | | UNIT [...] + + + + | BLOOD | [id number] | | [facility] | | | PRODUCT [...] DEPARTMENT OF | [address] | [place] [address] | | | PATHOLOGY | [address] [...] + + + + | PRODUCT | [id number] | | [facility] | | | UNIT [...] + + + + | BLOOD | [id number] | | [facility] | | | PRODUCT [...] | + + + + + | [facility] | [address] | [place] [address] | | | PATHOLOGY | [address] [...] + + + + | PRODUCT | [id number] | | [facility] | | | UNIT [...] + + + + | BLOOD | [id number] | | [facility] | | | PRODUCT [...] DEPARTMENT OF | [address] | [place] [address] | | | PATHOLOGY | [address] [...] + + + + | PRODUCT | [id number] | | [facility] | | | UNIT [...] + + + + | BLOOD | [id number] | | [facility] | | | PRODUCT [...] | + + + + + | [facility] | [address] | [place] [address] | | | PATHOLOGY | [address] [...] + + + + | PRODUCT | [id number] | | [facility] | | | UNIT [...] + + + + | BLOOD | [id number] | | [facility] | | | PRODUCT [...] DEPARTMENT OF | [address] | [place] [address] | | | PATHOLOGY | [address] [...] + + + + | PRODUCT | [id number] | | [facility] | | | UNIT [...] + + + + | BLOOD | [id number] | | [facility] | | | PRODUCT [...] | + + + + + | [facility] | [address] | [place] [address] | | | PATHOLOGY | [address] [...] [facility] | [address] | [place] [address] | | | SERVICES, JANELL | [address] [...] [facility] | [address] | [place] [address] | | | SERVICES, CORE | PARK [...] | + + + + + | [facility] | [address] | [place] [address] | | | SERVICES, [facility] | [address] | | | + [...] | | | LABORATORY | | | MONTSERRATIAN | | | SERVICES, | | | [...] [facility] | [address] | [place] [address] | | | SERVICES, CORE | PARK [...] [facility] | [address] | [place] [address] | | | SERVICES, CORE | PARK [...] [facility] | [address] | [place] [address] | | | SERVICES, CORE | PARK [...] + + + + + | [facility] | [address] | [place] [address] | | | JANELL SHARP | [address] [...] 89 | 60 - 99 mg/dL | [facility] - | | | GLUCOSE, | [...] [facility] | [address] | [place], [place] | | | PEPE MOORE OF CARE | [address] | [address] | | | TESTS | | | [...] | + + + + + | [facility] | [address] | [place] [address] | | | SERVICES, | [address] [...] [facility] | [address] | [place] [address] | | | SERVICES, | [address] [...] + + + + | PRODUCT | [id number] | | [facility] | | | UNIT [...] + + + + | BLOOD | [id number] | | [facility] | | | PRODUCT [...] | + + + + + | [facility] | [address] | [place] [address] | | | PATHOLOGY | [address] [...] + + + + | PRODUCT | [id number] | | [facility] | | | UNIT [...] + + + + | BLOOD | [id number] | | [facility] | | | PRODUCT [...] DEPARTMENT OF | [address] | [place] [address] | | | PATHOLOGY | [address] [...] + + + + | PRODUCT | [id number] | | [facility] | | | UNIT [...] + + + + | BLOOD | [id number] | | [facility] | | | PRODUCT [...] | + + + + + | [facility] | [address] | [place] [address] | | | PATHOLOGY | [address] [...] + + + + | PRODUCT | [id number] | | [facility] | | | UNIT [...] + + + + | BLOOD | [id number] | | [facility] | | | PRODUCT [...] DEPARTMENT OF | [address] | [place] [address] | | | PATHOLOGY | [address] [...] + + + + | PRODUCT | [id number] | | [facility] | | | UNIT [...] + + + + | BLOOD | [id number] | | [facility] | | | PRODUCT [...] | + + + + + | [facility] | [address] | [place] [address] | | | PATHOLOGY | [address] [...] + + + + | PRODUCT | [id number] | | [facility] | | | UNIT [...] + + + + | BLOOD | [id number] | | [facility] | | | PRODUCT [...] | + + + + + | [facility] | [address] | [place] [address] | | | PATHOLOGY | [address] [...] | | | | | modification) on [facility] 05/02/14 at | | | | [...] | | | | ONCE, 1 dose, [facility] 04/25/14 at | | AM PST [...] | | | | | modification) on [facility] 05/02/14 at | | | | [...] | | | | | dose on [facility] 05/02/14 at 0530, | | | [...] PST | | | | | Starting [facility] 05/02/14 at 0704, | | | [...] | | | tube, ONCE, 1 dose, [facility] 04/25/14 | | PM PST | [...] | | | tube, ONCE, 1 dose, [facility] 05/01/14 | | AM PST | [...] | | | | | modification) on [facility] 04/27/14 at | | | | [...]
--- OUTSIDE RECORDS SUMMARY | ~2019-11-05 | XMS | Encounter Summary ---
Demographics + + + | Address | [address] | | | [place] [address] | + + + | Home Phone [...] Team Providers + +------+ + | Care Paster Hat Lining Name | Role | Phone | + +------+ + PCP | Unavailable | + +------+ + Encounter Details +--------+ + + + + | Date | Type | Department | Care Team | Description | +--------+ + + + + | 08/04/ | Hospital | [facility] | Chace Benson | Crohn's disease of | | 2016 - | Encounter | [facility] | MD Alex Steve | large intestine with | | | | CARE FLOOR [address] [place], [place] | complication (HCC) | | 08/07/ | | [address] | [address] | | | 2015 | | [place], [place] | | | | | | [address] | | | | | | [phone] | | | +--------+ + + + [...] Summaries by Deanne Henson MD at 08/08/15 143 Author: Deanne Henson MD Service: Internal Medicine Author Type: Physician Filed: 08/08/15 1441 Date of Service: 08/08/151434 Status: Signed Disk Grinder: Deanne Henson MD (Physician) [facility] Service: Hospitalist Physician Discharge Summary Patient ID: Mackenzie Willingham 1955 59 y.o. Admit date: 08/05/2015 Discharge date: 08/08/2015 Admitting Physician: Chace Benson MD Discharge Physician: Deanne Henson MD Consultants: Treatment Team: Consulting Physician: Sheng Alvarado MD Admitting Provider: Chace Benson MD Primary [...] is on Coumadin. She presented to linda ency department at [facility] today with complaints of diarrhea, vomiting, and [...] she came to the emergency department of [facility], where she was found to have INR of 12.9. NG tube was passed and return was blood-t inged. She was given 2 units of fresh frozen plasma and 10 mg of vitamin K, and patient was transferred to this hospital as there is no GI backup at [facility]. Hospital Course: The pt admitted for vomiting blood with inr > 12. She took extra coumadin pills. She got ffp, vit K, and tx to [facility]. Iv fluds, iv ppi gtt started. [...] x [address] Townsend? At [facility] for colonic vaginal fistula . But does [...] Procedure: ESOPHAGOGASTRODUODENOSCOPY; Surgeon: Bony Petty MD; Location: [facility] BEDSIDE PROCEDURE; Service: Gastroenterology; Laterality: N/A; Laparotomy N/A 04/23/2014 Procedure: EXPLORATION - LAPAROTOMY; Surgeon: Bogdan Moser DO; Location: [facility] MAIN OR; Service: General; Laterality: N/A; Splenectomy, total N/A 04/23/2014 Procedure: SPLENECTOMY; Surgeon: Bogdan Moser DO; Location: [facility] MAIN OR; Service: General; Laterality: N/A; Esophagogastroduodenoscopy Left 08/06/2015 Procedure: ESOPHAGOGASTRODUODENOSCOPY; Surgeon: Sheng Alvarado MD; Location: [facility] ENDOSCOPY; Service: Gastroenterology; Laterality: Left; [...] this interval not displayed. Recent Labs Lab 08/07/1552708/06/15214808/06/15 0845 08/06/15 0501 08/05/15 2036 NA -- -- -- 137 133* K [...] PHOS 1.2* 3.0 Recent Labs Lab 08/07/1552708/06/15214808/06/15 0501 MG 1.7 2.0 1.1* Invalid input(s): ABG Disposition: Home or Self Care Follow up: [facility] [address] [facility] [place] [address] Please resume your coumadin therapy services within the next 3 days after discharge. 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 You may get the following medications [...] Case Management by Linh Perez RN at 08/08/15 1413 Author: Linh Perez RN Service: (none) Author Type: Registered Nurse Filed: 08/08/15 1415 Date of Service: 08/08/151412 Status: Signed Disk Grinder: Linh Perez RN (Registered Nurse) Met with pt regarding discharge planning. Pt states she is followed for her coumadin therap hy with [facility]/[place]. Pt states she will resume her coumadin servi krystyna with them upon d/c. No other needs at this time. Froylan Perez RN, CM. [phone] Deanne Galaviz MD - 08/07/2015 10:12 AM PDTFormatting of this note might be different from the or iginal. Progress Notes by Deanne Henson MD at 08/07/15 1012 Author: Deanne Henson MD Service: Internal Medicine Author Type: Physician Filed: 08/07/15 1017 Date of Service: 08/07/151011 Status: Signed Disk Grinder: Deanne Henson MD (Physician) [facility] Service: Hospitalist Progress Note Hospital Day: [...] She presented to linda rgency department at [facility] today with complaints of diarrhea, vomiting, and [...] she came to the emergency department of [facility], where she was found to have INR of 12.9. NG tube was passed and return was blood-t inged. She was given 2 units of fresh frozen plasma and 10 mg of vitamin K, and patient was transferred to this hospital as there is no GI backup at [facility]. Scheduled Medications baclofen 10 mg Oral TID [...] and dry. t. DATA Recent Labs Lab 08/07/1552708/06/15 1823 08/06/15 1205 08/06/15 0501 08/05/152035 WBC 18.65* -- -- 23.00* -- 28.83* [...] this interval not displayed. Recent Labs Lab 08/07/1552708/06/15 2149 08/06/15 0845 08/06/15 0501 08/05/152035 NA -- -- -- 137 133* K [...] the last 168 hours. Recent Labs Lab 08/07/15527 07/27/16 0501 PHOS 1.2* 3.0 Recent Labs Lab 08/07/15 0528 08/06/15 2149 08/06/15 0501 MG 1.7 2.0 1.1* Invalid input(s): ABG No results for input(s): CALCIUM in the last 168 hours. Recent Labs Lab 08/06/15 0501 08/05/15 2036 INR 1.2 1.3 Xr Chest 1 View [...] prefers vanco.. Mentions seeing dr Townsend at [facility] for fistula b/w vagina, colon. Get records. Her u/a noted. Bactrim po. The plan has explained in detail to the patient , all questions were answered.All data was reviewed. Disposition: home Code Status: Full Code Deanne Henson MD 08/07/2015 10:12 AM onversion Transactio n, Provider Unknown - 08/06/2015 9:25 PM PDT Nurse Progress Note by Celsa Del Castillo RN at 08/06/15 9132 Author: Celsa Del Castillo RN Service: (none) Author Type: Registered Nurse Filed: 08/07/15 0644 Date of Service: 08/06/152124 Status: Addendum Disk Grinder: Celsa Del Castillo RN (Registered Nurse) Related [...] Author: LEVI Gallardo Service: (none) Author Type: Public Health Inspector Filed: 08/06/15 1624 Date of Service: 08/06/151621 Status: Signed Disk Grinder: LEVI Gallardo (Public Health Inspector) 08/06/15 1600 Discharge Planning Evaluation Admitting Diagnosis Upper GI Bleed Readmission No Living Arrangements Spouse/significant other Support Systems Spouse/significant other Independent with ADL's Yes Independent with Mobility Yes Mental Status Oriented Anticipated Discharge Plan Post Acute Care Needs None at this time Resources Financial concerns No Transportation issues No Patient/Family concerns No Prescription Plan Yes Anticipated Disposition Facility Type 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 Progress Notes by Deanne Henson MD at 08/06/15 3089 Author: Deanne Henson MD Service: Internal Medicine Author Type: Physician Filed: 08/06/15 2053 Date of Service: 08/06/151257 Status: Addendum Disk Grinder: Deanne Henson MD (Physician) Related Notes: Original Note by Deanne Henson MD (Physician) filed at 08/06/15 2551 [facility] Service: Hospitalist Progress Note Hospital Day: [...] She presented to linda rgency department at [facility] today with complaints of diarrhea, vomiting, and [...] she came to the emergency department of [facility], where she was found to have INR of 12.9. NG tube was passed and return was blood-t inged. She was given 2 units of fresh frozen plasma and 10 mg of vitamin K, and patient was transferred to this hospital as there is no GI backup at [facility]. Scheduled Medications hydrocortisone sodium succinate PF 50 [...] recurrent uti's. Mentions seeing dr Townsend at [facility] for fistula b/w vagina, colon. Get records. [...] 08/06/1545 Date of Service: 08/06/1545 Status: Signed Disk Grinder: Hamilton Drummond RPH (Pharmacist) Note ccl 45.9ml/min meds reviewed Pharmacy will follow rdc 0046 docume nted in this encounter H&P Notes Chace Benson MD - 08/05/2015 8:33 PM PDTFormatting of this note might be differe nt from the original. H&P by Chace Benson MD at 08/05/152032 Author: Chace Benson MD Service: Hospitalist Author Type: Physician Filed: 08/06/15 0854 Date of Service: 08/05/152032 Status: Addendum Disk Grinder: Chace Benson MD (Physician) Related Notes: Original Note by Chace Benson MD (Physician) filed at 08/05/15 54 [facility] Service: Hospitalist Admission History & Physical Date of Admission: 08/05/2015 Requesting Physician: Transfer from [facility]. Reason for Admission: Hematemesis. Abdominal pain, N/V/D History Obtained From: patient CHIEF COMPLAINT: Vomiting blood for 2 days. HISTORY OF PRESENT ILLNESS The patient is 59 y.o. 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 She presented to linda rgency department at [facility] today with complaints of diarrhea, vomiting, and [...] she came to the emergency department of [facility], where she was found to have INR of 12.9. NG tube was passed and return was blood-t inged. She was given 2 units of fresh frozen plasma and 10 mg of vitamin K, and patient was transferred to this hospital as there is no GI backup at [facility]. REVIEW OF SYSTEMS Review of Systems Constitutional: Positive for activity change and fatigue. HENT: Negative. Cardiovascular: Negative for chest pain, palpitations and leg swelling. Gastrointestinal: Positive for nausea, vomiting, abdominal pain and diarrhea. Blood in vomiting Endocrine: Negative. Genitourinary: Negative. Neurological: Positive for weakness. Negative for syncope and headaches. Hematological: Negative. Psychiatric/Behavioral: Positive for dysphoric mood and decreased concentration. Negative f or suicidal ideas, hallucinations, confusion and sleep disturbance. The patient is hyperacti ve. Past Medical History Diagnosis Date COPD (chronic [...] Procedure: ESOPHAGOGASTRODUODENOSCOPY; Surgeon: Bony Petty MD; Location: [facility] BEDSIDE PROCEDURE; Service: Gastroenterology; Laterality: N/A; Laparotomy N/A 04/23/2014 Procedure: EXPLORATION - LAPAROTOMY; Surgeon: Bogdan Moser DO; Location: [facility] MAIN OR; Service: General; Laterality: N/A; Splenectomy, total N/A 04/23/2014 Procedure: SPLENECTOMY; Surgeon: Bogdan Moser DO; Location: [facility] MAIN OR; Service: General; Laterality: N/A; No current facility-administered medications on file prior to encounter. Current Outpatient Prescriptions on File Prior to Encounter Medication Sig Dispense Refill lisinopril (ZESTRIL) 20 MG tablet Take 1 tablet by mouth 2 (two) times daily. LORazepam (ATIVAN) 0.5 MG tablet Take 0.5 mg by mouth every 6 (six) hours as needed for Anxiety. metoprolol (LOPRESSOR) 25 MG tablet Take 2 tablets by mouth 2 (two) times daily. (Patie nt taking differently: Take 50 mg by mouth 2 (two) times daily. Indications: 50 mg bid) morphine (MSIR) 15 MG tablet Take 1 tablet by mouth 5 (five) times daily. PRN 150 table t 0 omeprazole (PRILOSEC) 40 MG capsule Take 40 mg by mouth 2 (two) times daily. oxyCODONE-acetaminophen (PERCOCET) 7.5-325 MG per tablet Take 1-2 tablets by mouth ever y 8 (eight) hours as needed for Pain. 60 tablet 0 predniSONE (DELTASONE) 10 MG tablet Take 15 mg by mouth daily. Indications: 15 mg promethazine (PHENERGAN) 25 MG tablet Take 25 mg by mouth every 6 (six) hours as needed for Nausea. warfarin (COUMADIN) 6 MG tablet Take 6 mg by mouth daily. [DISCONTINUED] cyanocobalamin 1000 MCG/ML injection Inject 1,000 mcg into the muscle ev vinh 30 (thirty) days. [DISCONTINUED] inFLIXimab (REMICADE) 100 MG injection Inject 375 mg into the vein. Ever y 6 weeks [DISCONTINUED] potassium chloride SA (K-DUR,KLOR-CON) 20 MEQ tablet Take 20 mEq by mout h 2 (two) times daily. [DISCONTINUED] simethicone (MYLICON) 40 MG/0.6ML drops Take 1.6 mg by mouth 4 (four) ti mes daily as needed. Indications: X-Rays of Digestive Tract, 1.6 mg given po in clinic as pa rt of capsule endoscopy procedure [DISCONTINUED] tamsulosin (FLOMAX) 0.4 MG capsule Take 0.4 mg by mouth After dinner. A dminister 30 minutes after the same meal each day. Capsules should be swallowed whole; do no t crush, chew, or open Allergies Allergen Reactions Demerol [Meperidine] Other (See Comments) Unknown Erythromycin Other (See Comments) unknown Levofloxacin Other (See Comments) tendinitis Reglan [Metoclopramide] Agitation Unknown Penicillins Nausea and Vomiting Prescriptions prior to admission Medication Sig Dispense Refill Last Dose lisinopril (ZESTRIL) 20 MG tablet Take 1 tablet by mouth 2 (two) times daily. 08/04/19 16 at Unknown time LORazepam (ATIVAN) 0.5 MG tablet Take 0.5 mg by mouth every 6 (six) hours as needed for Anxiety. 08/04/2015 at 2100 metoprolol (LOPRESSOR) 25 MG tablet Take 2 tablets by mouth 2 (two) times daily. (Patie nt taking differently: Take 50 mg by mouth 2 (two) times daily. Indications: 50 mg bid) at 2100 morphine (MSIR) 15 MG tablet Take 1 tablet by mouth 5 (five) times daily. PRN 150 table t 0 08/04/2015 at 2100 omeprazole (PRILOSEC) 40 MG capsule Take 40 mg by mouth 2 (two) times daily. 6 at 2100 oxyCODONE-acetaminophen (PERCOCET) 7.5-325 MG per tablet Take 1-2 tablets by mouth ever y 8 (eight) hours as needed for Pain. 60 tablet 0 08/04/2015 at 0900 predniSONE (DELTASONE) 10 MG tablet Take 15 mg by mouth daily. Indications: 15 mg 07/11 at 0900 promethazine (PHENERGAN) 25 MG tablet Take 25 mg by mouth every 6 (six) hours as needed for Nausea. 08/04/2015 at Unknown time warfarin (COUMADIN) 6 MG tablet Take 6 mg by mouth daily. 08/04/2015 at 0900 No family history on file. History Social [...] History Narrative PHYSICAL EXAM Vital Signs: BP 119/55 mmHg | Pulse 105 | Temp(Src) 100 F (37.8 C) (Oral) | Resp 20 | Ht 1.753 m (5' 9") | Wt 79.516 kg (175 lb 4.8 oz) | BMI 25.88 kg/m2 | SpO2 96% | ? No Physical Exam Constitutional: She is oriented to person, place, and time. No distress. HENT: Head: Normocephalic. Mouth/Throat: No oropharyngeal exudate. Eyes: Pupils are equal, round, and reactive to light. No scleral icterus. Neck: Normal range of motion. Neck supple. No JVD present. Cardiovascular: Normal rate, regular rhythm and normal heart sounds. Exam reveals no britt p and no friction rub. No murmur heard. Pulmonary/Chest: Effort normal and breath sounds normal. No respiratory distress. She has n o wheezes. She has no rales. She exhibits no tenderness. Abdominal: Soft. Bowel sounds are normal. She exhibits no mass. There is no rebound and no guarding. No hernia. Fulness of stomach. Severe diffuse abdominal tenderness. Musculoskeletal: She exhibits no edema or tenderness. Neurological: She is alert and oriented to person, place, and time. No cranial nerve defici t. Skin: Skin is warm and dry. No rash noted. She is not diaphoretic. No erythema. No pallor. Psychiatric: Anxious, depressed, poor historian DATA CBC: Lab Results Component Value Date WBC 15.45* 11/10/2014 RBC 3.74 11/10/2014 HGB 11.3 11/10/2014 HGB 10.9* 04/23/2014 HCT 35.4 11/10/2014 HCT 32* 04/23/2014 MCV 94.7 11/10/2014 MCH 30.3 11/10/2014 MCHC 32.0 11/10/2014 RDW 59.5* 11/10/2014 PLT 393 11/10/2014 MPV 8.4 11/10/2014 DIFFTYPE AUTOMATED 11/08/2014 CMP: Lab Results Component Value Date NA 137 11/09/2014 K 3.4* 11/09/2014 CL 109 11/09/2014 CO2 20* 11/09/2014 ANIONGAP 11 11/09/2014 GLUF 74 11/09/2014 BUN 8 11/09/2014 CREATININE 0.57 11/09/2014 BCR 14 11/09/2014 CA 8.5 11/09/2014 PROT 5.9* 11/09/2014 ALB 2.7* 11/09/2014 GLOB 3.2 11/09/2014 BILITOT 0.4 11/09/2014 ALP 137* 11/09/2014 AST 13 11/09/2014 ALT 13 11/09/2014 EGFR >60 11/09/2014 PT/INR: Lab Results Component Value Date INR 1.9 11/10/2014 Blood workup done at [facility] emergency department this morning is as follows: White count 24.7, hemoglobin 12, hematocrit 41.2, platelet count 594, pro time 102.9, INR 12 .9, glucose 127, BUN 40, creatinine 2.89, potassium 3.3, bilirubin 0.5, AST 26, ALT 28, claribel line phosphatase 213, amylase 35, lipase 39. 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 Acute hematemesis. Differential diagnosis includes Calvin-Collins tear, peptic ulcer dise ase, esophageal varices. Bleeding is exacerbated by Coumadin toxicity causing supratherapeut ic INR. She had NG tube placed at emergency department. Her hemoglobin and hematocrit done t his morning are 12 and 41.2 respectively. I will repeat another hemoglobin and hematocrit no w and keep 2 units of blood on hold. She will be n.p.o. and will start patient on IV Protoni x infusion. I spoke with Dr. Alvarado, who will see this patient tomorrow, and he rec ommended to remove NG tube. She will also require IV fluids. I am checking another INR now, and if it is still elevated above 10 then she will require 2 units more of fresh frozen plas ma. She may need EGD, but that decision should be made by Dr. Alvarado. 2. Severe abdominal pain with nausea, vomiting, and diarrhea. As per old records, she has r ecurrent problems with abdominal pain, vomiting, and diarrhea and is on morphine sulfate and on oxycodone at home. She also takes Phenergan. I will start the patient on IV morphine and IV Phenergan for control of pain and vomiting. I will check stool for Clostridium difficile , though previous stool studies for Clostridium difficile were negative. She may have exacer bation of Crohn disease causing diarrhea. I will change oral prednisone to IV hydrocortisone , and Dr. Alvarado will see this patient tomorrow. 3. 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 Patient should follow a surgeon once Crohn d isease is under control. 4. History of DVT with supratherapeutic INR. According to patient, she may have taken extra pill of Coumadin accidentally. She received fresh frozen plasma and vitamin K at [facility]. I will repeat INR again. 5. Chronic narcotic use. Patient seems to have very low tolerance for pain and very high to lerance for narcotics. Patient admits that problem. It will be very challenging to control h er pain during this admission but will try to minimize narcotic use. 6. Leukocytosis, most likely reactive in nature, and I do not think that she has any eviden ce of infection, however I will check UA and chest x-ray. 7. Hypertension. I will change oral metoprolol to IV, as the patient is n.p.o. 8. Hypercoagulable state with history of thrombosis of splenic artery and DVT of lower extr emity. Will hold Coumadin for now due to Coumadin toxicity. 9. DVT prophylaxis with SCDs. Will avoid chemical prophylaxis due to active bleeding. 10. Renal insufficiency. No prior history of renal failure. Patient may have dehydration. W ill start IV fluids and repeat creatinine and BUN tomorrow. May need further work up and pos sibly nephrology consult if renal failure does not improve by tomorrow. I certify that patient will need inpatient treatment for at least 2 midnights due to proble ms mentioned above. Disposition: Inpatient Code Status: Full Code Primary Care Physician: Neel Benson MD 08/05/2015 documented in this encounter Consult Notes Sheng Alvarado MD - 08/06/2015 1:29 PM PDTFormatting of this note might be differ ent from the original. Consult* by Sheng Alvarado MD at 08/06/15 7336 Author: Sheng Alvarado MD Service: (none) Author Type: Physician Filed: 08/06/15 2792 Date of Service: 08/06/15 9250 Status: Signed Disk Grinder: Sheng Alvarado MD (Physician) [facility] Service: Gastroenterology Initial Consult Note Date of Admission: 08/05/2015 Reason for Consultation: Upper GI bleeding and anemia Requesting Physician: Hospitalist History Obtained From: patient, chart review CHIEF COMPLAINT: Recurrent vomiting blood tinged gastric content 2 days prior to arrival HISTORY OF PRESENT ILLNESS The patient is 59 y.o. 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 She presented to emergency department at [facility] today with complaints of watery diarrhea ( up to 6 BM per day), vomi ting, and severe abdominal pain going on for 4 days. For the last couple of days patient has noticed some blood in the vomiting. According to patient, she has severe, excruciating, dif fuse abdominal pain, and despite taking morphine and oxycodone at home it has not subsided. This is unusual for her as opiates usually could control her diarrhea. However she has had o nly one BM without overt blood during the last 12 hours. Her abdominal pain is much improved after admission. Patient has been feeling weak and tired, hence she came to the emergency d epartment of [facility], where she was found to have INR of 12.9. NG tube was pass ed and return was blood-tinged. She was given 2 units of fresh frozen plasma and 10 mg of vi tamin K, and patient was transferred to this hospital as there is no GI backup at [facility]. Repeat INR after admission was 1.2. She was seen at [facility] and the plan is to have surgery to close the recto-vaginal fistula. She was on Remicade about 3 to 4 years ago for few years and last time she received Remicade was about 2 years ago. She has a history of fr equent UTI and she is wondering whether this could be related to Remicade. She was informed that she no longer needs Remicade as she might have reaction when Remicade is resumed. While she was on Remicade, there was no improvement of recto-vaginal fistula. She has never been on Immunomodulator ( such as Imuran, 6 MP or MTX). She continues to smoke. She is already on PPI prior to admission. REVIEW OF SYSTEMS Review of Systems All other systems reviewed and are negative. Past Medical History Diagnosis Date COPD (chronic [...] Procedure: ESOPHAGOGASTRODUODENOSCOPY; Surgeon: Bony Petty MD; Location: [facility] BEDSIDE PROCEDURE; Service: Gastroenterology; Laterality: N/A; [...] prior to admission Medication Sig Dispense Refill Last Dose lisinopril (ZESTRIL) 20 MG tablet Take 1 tablet by mouth 2 (two) times daily. 08/04/19 16 at Unknown time LORazepam (ATIVAN) 0.5 MG tablet Take 0.5 mg by mouth every 6 (six) hours as needed for Anxiety. 08/04/2015 at 2100 metoprolol (LOPRESSOR) 25 MG tablet Take 2 tablets by mouth 2 (two) times daily. (Patie nt taking differently: Take 50 mg by mouth 2 (two) times daily. Indications: 50 mg bid) at 2100 morphine (MSIR) 15 MG tablet Take 1 tablet by mouth 5 (five) times daily. PRN 150 table t 0 08/04/2015 at 2100 omeprazole (PRILOSEC) 40 MG capsule Take 40 mg by mouth 2 (two) times daily. 6 at 2100 oxyCODONE-acetaminophen (PERCOCET) 7.5-325 MG per tablet Take 1-2 tablets by mouth ever y 8 (eight) hours as needed for Pain. 60 tablet 0 08/04/2015 at 0900 predniSONE (DELTASONE) 10 MG tablet Take 15 mg by mouth daily. Indications: 15 mg 07/11 at 0900 promethazine (PHENERGAN) 25 MG tablet Take 25 mg by mouth every 6 (six) hours as needed for Nausea. 08/04/2015 at Unknown time warfarin (COUMADIN) 6 MG tablet Take 6 mg by mouth daily. 08/04/2015 at 0900 Scheduled Medications hydrocortisone sodium succinate PF 50 [...] promethazine OR promethazine OR prome thazine, zolpidem No family history on file. History Smoking status Current Every Day Smoker -- 0.50 packs/day Smokeless tobacco Never Used History Alcohol Use Yes Comment: occasionally PHYSICAL EXAM Vital Signs: BP 101/49 mmHg | Pulse 94 | Temp(Src) 98.9 F (37.2 C) (Oral) | Resp 16 | Ht 1.753 m (5' 9") | Wt 79.8 kg (175 lb 14.8 oz) | BMI 25.97 kg/m2 | SpO2 95% | ? No Temp: [98.3 F (36.8 C)-100 F (37.8 C)] 98.9 F (37.2 C) (08/05 105) BP: (100-126)/(49-59) 101/49 mmHg (08/05 105) Heart Rate: [92-106] 94 (08/05 105) Resp: [16-20] 16 (08/05 105) SpO2: [92 %-97 %] 95 % (08/05 1058) Height: [175.3 cm (5' 9")] 175.3 cm (5' 9") (08/05 0430) Weight: [79.516 kg (175 lb 4.8 oz)-79.8 kg (175 lb 14.8 oz)] 79.8 kg (175 lb 14.8 oz) (429) BMI (Calculated): [25.9-26] 26 (08/05 429) Physical Exam Constitutional: She is oriented to person, place, and time. She appears well-developed and well-nourished. HENT: Head: Normocephalic and atraumatic. Eyes: EOM are normal. Pupils are equal, round, and reactive to light. No scleral icterus. Cardiovascular: Normal rate and regular rhythm. Pulmonary/Chest: Effort normal and breath sounds normal. Abdominal: Soft. Bowel sounds are normal. She exhibits no distension and no mass. There is no tenderness. There is no rebound and no guarding. No hernia. Musculoskeletal: She exhibits no edema or tenderness. Neurological: She is alert and oriented to person, place, and time. Skin: Skin is warm and dry. There is pallor. DATA CBC: Lab Results Component Value Date WBC 23.00* 08/06/2015 RBC 3.89 08/06/2015 HGB 8.5* 08/06/2015 HGB 10.9* 04/23/2014 HCT 28.9* 08/06/2015 HCT 32* 04/23/2014 MCV 78.9* 08/06/2015 MCH 23.4* 08/06/2015 MCHC 29.7* 08/06/2015 RDW 63.9* 08/06/2015 PLT 436* 08/06/2015 MPV 8.1 08/06/2015 DIFFTYPE AUTOMATED 08/06/2015 CMP: Lab Results Component Value Date NA 137 08/06/2015 K 3.9 08/06/2015 CL 105 08/06/2015 CO2 22* 08/06/2015 ANIONGAP 14 08/06/2015 GLUF 92 08/06/2015 BUN 36* 08/06/2015 CREATININE 1.07* 08/06/2015 BCR 34 08/06/2015 CA 7.0* 08/06/2015 PROT 5.9* 08/06/2015 ALB 2.9* 08/06/2015 GLOB 3.0 08/06/2015 BILITOT 0.8 08/06/2015 ALP 148* 08/06/2015 AST 34 08/06/2015 ALT 39 08/06/2015 EGFR 56* 08/06/2015 PT/INR: Lab Results Component Value Date INR 1.2 08/06/2015 PTT: Lab Results Component Value Date APTT 33* 11/05/2014 [APTT} Xr Chest 1 View 08/05/2015 1. Chronic findings, as above, without acute disease. 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 Remicade could be resumed even with higher chance of reaction. If Remicade is to be r esumed, she should be on Immunomodulator for about 4 to 6 weeks prior to Remicade infusion. Blood test for Remicade antibody prior to second infusion of Remicade will be done in case Remicade is resumed. The other options, if she develops antibody for Remicade would be Cimz ia and Entyvio. 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 Hypercoagulability which is most likely related to underlying active Crohn's disease Leukocytosis most likely from steroid Iron deficiency anemia which is related to under treated active Crohn's disease Recommendation Empiric IV PPI EGD evaluation Code Status: Full Code Primary Care Physician: Neel Fernandes Thank you for allowing me to participate in the care of this patient. SHENG ALVARADO MD 08/06/2015 documente d in this encounter Miscellaneous Notes Op Note - Sheng Alvarado MD - 08/06/2015 4:31 PM PDT Op Note by Sheng Alvarado MD at 08/06/15 1888 Author: Sheng Alvarado MD Service: (none) Author Type: Physician Filed: 08/06/15 1636 Date of Service: 08/06/15 1631 Status: Signed Disk Grinder: Sheng Alvarado MD (Physician) [facility] Service: Gastroenterology ENDOSCOPY SUITE PROCEDURE NOTE Esophagogastroduodenoscopy Indications: upper GI bleeding Consent: The benefits, risks (bleeding, perforation, infection and reaction to medication) , and alternatives to the procedure were discussed and informed consent was obtained from th e patient. Preparation: EKG, pulse, pulse oximetry, and blood pressure were monitored throughout the procedure. Medications: MAC Procedure: The gastroscope was passed through the mouth under direct visualization and was advanced with ease to the 2nd portion of the duodenum. The scope was withdrawn and the muco sa was carefully examined. The views were good. There were no apparent complications. Findings: 1) esophagus : normal 2) stomach: 5 cms hiatal hernia and mild gastritis at proximal gastric body most likely fro m NG tube trauma 3) duodenum: normal first and second portion of duodenum Specimens: none Complications: None; patient tolerated the procedure well. Impression: 1) esophagus : normal 2) stomach: 5 cms hiatal hernia and mild gastritis at proximal gastric body most likely fro m NG tube trauma 3) duodenum: normal first and second portion of duodenum 4) no endoscopic finding of upper GI bleeding at the time of procedure EBL: none Recommendations: Discontinue NPO Could resume coumadin Resume PPI Could be discharged home in am if remains stable SHENG ALVARADO MD 08/06/2015 documente d in this encounter Plan of Treatment Not [...] | EXTERNAL LAB: RAPHAEL | Routin | 08/07/2015 | | Results [...] | | | performed at [facility] | | | | | | [address] [facility];[place], [place] | | | | | | [address] | | | | + + + [...] L | LAB | | | | [facility], [address] [facility] [address] | | | | | | [place] | | | | | | [address] | | | | + + +---- + + + | Non- | 3.36 (L)Comment: Testing | 3.7 0 - 5.10 | EXTERNAL | | | Red Blood | performed at [facility], [address] | M/u L | LAB | | | Cells | [address] [place], | | | | | Counted | [place] [address] | | | | + + +---- + + + | Hemoglobin | 7.8 (L)Comment: Testing | 11. 3 - 15.5 | EXTERNAL | | | | performed at [facility], [address] | g/d L | LAB | | | | [address] [place], | | | | | | [place] [address] | | | | + + +---- + + + | Hematocrit, | 26.6 (L)Comment: Testing | 34. 0 - 46.0 % | EXTERNAL | | | POC | performed at [facility], [address] | | LAB | | | | [address] [place], | | | | | | [place] [address] | | | | + + +---- + + + | MCV | 79.1 (L)Comment: Testing | 80. 0 - 100.0 fl | EXTERNAL | | | | performed at [facility], [address] | | LAB | | | | [address] [place], | | | | | | [place] [address] | | | | + + +---- + + + | MCH | 23.2 (L)Comment: Testing | 27. 0 - 34.0 pg | EXTERNAL | | | | performed at [facility], [address] | | LAB | | | | [place] [place], | | | | | | [place] [address] | | | | + + +---- + + + | MCHC | 29.3 (L)Comment: Testing | 32. 0 - 35.5 | EXTERNAL | | | | performed at [facility], [address] | g/d L | LAB | | | | [place], | | | | | | [place] [address] | | | | + + +---- + + + | RDW-CV | 61.7 (H)Comment: Testing | 37 - 53 fl | EXTERNAL | | | | performed at [facility], [address] | | LAB | | | | [address], | | | | | | [place] [address] | | | | + + +---- + + + | Platelet | 418 (H)Comment: Testing | 150 - 400 K/uL | EXTERNAL | | | Count | performed at [facility], [address] | | LAB | | | Plasma | [place], | | | | | | [place] [address] | | | | + + +---- + + + | MPV | 8.3Comment: Testing | fl | EXTERNAL | | | | performed at [facility], [address] | | LAB | | | | [address], | | | | | | [place] [address] | | | | + + +---- + + + | Differentia | AUTOMATEDComment: | | EXTERNAL | | | l Type | Testing performed at | | LAB | | | | [facility], [address] | | | | | | [place] | | | | | | [address] | | | | + + +---- + + + | % Segmented | 59.50Comment: Testing | % | EXTERNAL | | | | performed at [facility], [address] | | LAB | | | Neutrophils | [place], | | | | | | [place] [address] | | | | + + +---- + + + | % | 29.26Comment: Testing | % | EXTERNAL | | | Lymphocytes | performed at [facility], [address] | | LAB | | | | [place], | | | | | | [place] [address] | | | | + + +---- + + + | % Monocytes | 9.64Comment: Testing | % | EXTERNAL | | | | performed at [facility], [address] | | LAB | | | [address], | | | | | | [place] [address] | | | | + + +---- + + + | % | 0.54Comment: Testing | % | EXTERNAL | | | Eosinophils | performed at [facility], [address] | | LAB | | | | [address], | | | | | | [place] [address] | | | | + + +---- + + + | % Basophils | 1.06Comment: Testing | % | EXTERNAL | | | | performed at [facility], [address] | | LAB | | | | [place], | | | | | | [place] [address] | | | | + + +---- + + + | Absolute | 9.61 (H)Comment: Testing | 1.9 0 - 7.40 | EXTERNAL | | | Segmented | performed at [facility], [address] | K/u L | LAB | | | Neutrophils | [address] [place], | | | | | | [place] [address] | | | | + + +---- + + + | Absolute | 4.73 (H)Comment: Testing | 1.0 0 - 3.90 | EXTERNAL | | | Lymphocytes | performed at [facility], [address] | K/u L | LAB | | | | [address] [place], | | | | | | [place] [address] | | | | + + +---- + + + | Absolute | 1.56 (H)Comment: Testing | 0.0 0 - 0.80 | EXTERNAL | | | Monocytes | performed at [facility], [address] | K/u L | LAB | | | | [address], | | | | | | [place] [address] | | | | + + +---- + + + | Absolute | 0.09Comment: Testing | 0.0 0 - 0.50 | EXTERNAL | | | Eosinophils | performed at [facility], [address] | K/u L | LAB | | | | [address], | | | | | | [place] [address] | | | | + + +---- + + + | Absolute | 0.17 (H)Comment: Testing | 0.0 0 - 0.10 | EXTERNAL | | | Basophils | performed at [facility], [address] | K/u L | LAB | | | | [address] [facility], | | | | | | [place] [address] | | | | + + +---- + + + | RBC | 2+Comment: | | EXTERNAL | | | Morphology | ANISO1+HYPO1+MICRO2+TARG | | LAB | | | | ETNORMAL PLT | | | | | | MORPHTesting performed | | | | | | at [facility], [address] | | | | | | [address] [place], | | | | | | [place] [address] | | | | | |2+ | | | | | |TARGET | | | | | |NORMAL PLT MORPH | | | | | |Testing performed at [facility], [address] [facility], [place] [address] | | | | | | | | | | + + +---- + + + | Differentia | SLIDE SCANNED, AGREES | | EXTERNAL | | | l Comments | WITH AUTOMATED | | LAB | | | | RESULTS.Comment: Testing | | | | | | performed at [facility], [address] | | | | | | [address] [place], | | | | | | [place] [address] | | | | + + +---- [...] [place] | | | | | | [address] | | | | + + +---- + + + | Non- | 3.47 (L)Comment: Testing | 3.7 0 - 5.10 | EXTERNAL | | | Red Blood | performed at [facility], [address] | M/u L | LAB | | | Cells | [address] [place], | | | | | Counted | [place] [address] | | | | + + +---- + + + | Hemoglobin | 8.2 (L)Comment: Testing | 11. 3 - 15.5 | EXTERNAL | | | | performed at [facility], [address] | g/d L | LAB | | | | [place], | | | | | | [place] [address] | | | | + + +---- + + + | Hematocrit, | 27.5 (L)Comment: Testing | 34. 0 - 46.0 % | EXTERNAL | | | POC | performed at [facility], [address] | | LAB | | | | [place], | | | | | | [place] [address] | | | | + + +---- + + + | MCV | 79.1 (L)Comment: Testing | 80. 0 - 100.0 fl | EXTERNAL | | | | performed at [facility], [address] | | LAB | | | | [address] [place], | | | | | | [place] [address] | | | | + + +---- + + + | MCH | 23.6 (L)Comment: Testing | 27. 0 - 34.0 pg | EXTERNAL | | | | performed at [facility], [address] | | LAB | | | | [address] [place], | | | | | | [place] [address] | | | | + + +---- + + + | MCHC | 29.8 (L)Comment: Testing | 32. 0 - 35.5 | EXTERNAL | | | | performed at [facility], [address] | g/d L | LAB | | | | [address] [place], | | | | | | [place] [address] | | | | + + +---- + + + | RDW-CV | 62.1 (H)Comment: Testing | 37 - 53 fl | EXTERNAL | | | | performed at [facility], [address] | | LAB | | | | [address] [place] [place], | | | | | | [place] [address] | | | | + + +---- + + + | Platelet | 419 (H)Comment: Testing | 150 - 400 K/uL | EXTERNAL | | | Count | performed at [facility], [address] | | LAB | | | Plasma | [place], | | | | | | [place] [address] | | | | + + +---- + + + | MPV | 8.3Comment: Testing | fl | EXTERNAL | | | | performed at [facility], [address] | | LAB | | | | [place], | | | | | | [place] [address] | | | | + + +---- + + + | Differentia | AUTOMATEDComment: | | EXTERNAL | | | l Type | Testing performed at | | LAB | | | | [facility], [address] | | | | | | [place] | | | | | | [address] | | | | + + +---- + + + | % Segmented | 82.12Comment: Testing | % | EXTERNAL | | | | performed at [facility], [address] | | LAB | | | Neutrophils | [place], | | | | | | [place] [address] | | | | + + +---- + + + | % | 10.53Comment: Testing | % | EXTERNAL | | | Lymphocytes | performed at [facility], [address] | | LAB | | | | [place], | | | | | | [place] [address] | | | | + + +---- + + + | % Monocytes | 6.70Comment: Testing | % | EXTERNAL | | | | performed at [facility], [address] | | LAB | | | | [address], | | | | | | [place] [address] | | | | + + +---- + + + | % | 0.05Comment: Testing | % | EXTERNAL | | | Eosinophils | performed at [facility], [address] | | LAB | | | | [address], | | | | | | [place] [address] | | | | + + +---- + + + | % Basophils | 0.60Comment: Testing | % | EXTERNAL | | | | performed at [facility], [address] | | LAB | | | | [address], | | | | | | [place] [address] | | | | + + +---- + + + | Absolute | 15.31 (H)Comment: | 1.9 0 - 7.40 | EXTERNAL | | | Segmented | Testing performed at | K/u L | LAB | | | Neutrophils | [facility], [address] | | | | | | [place] | | | | | | [address] | | | | + + +---- + + + | Absolute | 1.96Comment: Testing | 1.0 0 - 3.90 | EXTERNAL | | | Lymphocytes | performed at [facility], [address] | K/u L | LAB | | | | [place], | | | | | | [place] [address] | | | | + + +---- + + + | Absolute | 1.25 (H)Comment: Testing | 0.0 0 - 0.80 | EXTERNAL | | | Monocytes | performed at [facility], [address] | K/u L | LAB | | | | [address] [place], | | | | | | [place] [address] | | | | + + +---- + + + | Absolute | 0.01Comment: Testing | 0.0 0 - 0.50 | EXTERNAL | | | Eosinophils | performed at [facility], [address] | K/u L | LAB | | | | [place], | | | | | | [place] [address] | | | | + + +---- + + + | Absolute | 0.11 (H)Comment: Testing | 0.0 0 - 0.10 | EXTERNAL | | | Basophils | performed at [facility], [address] | K/u L | LAB | | | | [address], | | | | | | [place] [address] | | | | + + +---- + + + | RBC | 2+Comment: | | EXTERNAL | | | Morphology | ANISO2+HYPO1+TARGET1+POI | | LAB | | | | KNORMAL PLT MORPHTesting | | | | | | performed at [facility], [address] | | | | | | [address] [facility], | | | | | | [place] [address] | | | | | |TARGET | | | | | |1+ | | | | | |POIK | | | | | |NORMAL PLT MORPH | | | | | |Testing performed at [facility], [facility] [place] [address] | | | | | | | [...] | | | performed at [facility];[address] | mmol/L | LAB | | | | [address] [place], [place] | | | | | | [address] | | | | + + + [...] | | | performed at [facility];[address] | | LAB | | | | [address];[place], [place] | | | | | | [address] | | | | + + + [...] | | | performed at [facility] | | LAB | | | | [address] [place], [place] | | | | | | [address] | | | | + + + [...] | | | performed at [facility];[address] | mmol/L | LAB | | | | [place] | | | | | | [address] | | | | + + + [...] | | | performed at [facility] | | LAB | | | | [place], [place] | | | | | | [address] | | | | + + + [...] | | Testing performed at [facility];[address] [place] [address];[place] [address] TOXIN A | | | NEGATIVE Testing performed | | | at [facility] [place] [address];[place] [address] C DIFF INTERPRETATION | | | Positive [...] Testing | | | performed at [facility] [facility];[place] [address] | | + + + + +---------+ [...] | | C.diffAbnormal Testing performed at [facility];[address] [place] [address];[place], [place] | | | [phone] NAP1 BI 027 NAP1 BI | | | PRESUMPTIVE NEGATIVE Detection of 027 NAP1 BI strains of C. difficile | | | is presumptive and for epidemiological purposes and not intended to | | | guide or monitor treatment for C. difficile infections. Testing | | | performed at [facility];[address] [place] [address];[place] [address] | | + + + + +---------+ [...] + + + | Hemoglobin | 8.5 (L)Comment: Testing | 11.3 - 15.5 | EXTERNAL | | | | performed at [facility];[address] | g/dL | LAB | | | | [address];[place] | | | | | | [address] | | | | + + + + + + | Hematocrit, | 29.1 (L)Comment: Testing | 34.0 - 46.0 % | EXTERNAL | | | POC | performed at [facility];[address] | | LAB | | | | [address];[place] | | | | | | [address] | | | | + + + [...] + + + | Hemoglobin | 8.5 (L)Comment: Testing | 11.3 - 15.5 | EXTERNAL | | | | performed at [facility];[address] | g/dL | LAB | | | | [address];[place] | | | | | | [address] | | | | + + + + + + | Hematocrit, | 28.9 (L)Comment: Testing | 34.0 - 46.0 % | EXTERNAL | | | POC | performed at [facility];[address] | | LAB | | | | [address];[place] | | | | | | [address] | | | | + + + [...] | | | performed at [facility];[address] | mmol/L | LAB | | | | [address] [place], [place] | | | | | | [...] | | | performed at [facility] | | | | | | [address];[place], [place] | | | | | | [address] | | | | + + + [...] + +---------+ + + External Lab: CBC (08/06/2015 5:01 AM PDT) + + +---- [...] | | | | [facility], [address] | | | | | | [place] | | | | | | [address] | | | | + + +---- + + + | Non- | 3.89Comment: Testing | 3.7 0 - 5.10 | EXTERNAL | | | Red Blood | performed at [facility], [address] | M/u L | LAB | | | Cells | [place], | | | | | Counted | [place] [address] | | | | + + +---- + + + | Hemoglobin | 9.1 (L)Comment: Testing | 11. 3 - 15.5 | EXTERNAL | | | | performed at [facility], [address] | g/d L | LAB | | | | [place], | | | | | | [place] [address] | | | | + + +---- + + + | Hematocrit, | 30.7 (L)Comment: Testing | 34. 0 - 46.0 % | EXTERNAL | | | POC | performed at [facility], [address] | | LAB | | | | [place], | | | | | | [place] [address] | | | | + + +---- + + + | MCV | 78.9 (L)Comment: Testing | 80. 0 - 100.0 fl | EXTERNAL | | | | performed at [facility], [address] | | LAB | | | | [place], | | | | | | [place] [address] | | | | + + +---- + + + | MCH | 23.4 (L)Comment: Testing | 27. 0 - 34.0 pg | EXTERNAL | | | | performed at [facility], [address] | | LAB | | | | [address] [place], | | | | | | [place] [address] | | | | + + +---- + + + | MCHC | 29.7 (L)Comment: Testing | 32. 0 - 35.5 | EXTERNAL | | | | performed at [facility], [address] | g/d L | LAB | | | | [address] [place], | | | | | | [place] [address] | | | | + + +---- + + + | RDW-CV | 63.9 (H)Comment: Testing | 37 - 53 fl | EXTERNAL | | | | performed at [facility], [address] | | LAB | | | | [address] [place] [place], | | | | | | [place] [address] | | | | + + +---- + + + | Platelet | 436 (H)Comment: Testing | 150 - 400 K/uL | EXTERNAL | | | Count | performed at [facility], [address] | | LAB | | | Plasma | [place], | | | | | | [place] [address] | | | | + + +---- + + + | MPV | 8.1Comment: Testing | fl | EXTERNAL | | | | performed at [facility], [address] | | LAB | | | [address], | | | | | | [place] [address] | | | | + + +---- + + + | Differentia | AUTOMATEDComment: | | EXTERNAL | | | l Type | Testing performed at | | LAB | | | | [facility], [address] | | | | | | [place] | | | | | | [address] | | | | + + +---- + + + | % Segmented | 78.91Comment: Testing | % | EXTERNAL | | | | performed at [facility], [address] | | LAB | | | Neutrophils | [place], | | | | | | [place] [address] | | | | + + +---- + + + | % | 15.10Comment: Testing | % | EXTERNAL | | | Lymphocytes | performed at [facility], [address] | | LAB | | | | [address], | | | | | | [place] [address] | | | | + + +---- + + + | % Monocytes | 5.31Comment: Testing | % | EXTERNAL | | | | performed at [facility], [address] | | LAB | | | | [place], | | | | | | [place] [address] | | | | + + +---- + + + | % | 0.03Comment: Testing | % | EXTERNAL | | | Eosinophils | performed at [facility], [address] | | LAB | | | | [place], | | | | | | [place] [address] | | | | + + +---- + + + | % Basophils | 0.65Comment: Testing | % | EXTERNAL | | | | performed at [facility], [address] | | LAB | | | | [place], | | | | | | [place] [address] | | | | + + +---- + + + | Absolute | 18.14 (H)Comment: | 1.9 0 - 7.40 | EXTERNAL | | | Segmented | Testing performed at | K/u L | LAB | | | Neutrophils | [facility], [address] | | | | | | [place] | | | | | | [address] | | | | + + +---- + + + | Absolute | 3.47Comment: Testing | 1.0 0 - 3.90 | EXTERNAL | | | Lymphocytes | performed at [facility], [address] | K/u L | LAB | | | | [address], | | | | | | [place] [address] | | | | + + +---- + + + | Absolute | 1.22 (H)Comment: Testing | 0.0 0 - 0.80 | EXTERNAL | | | Monocytes | performed at [facility], [address] | [address] | LAB | | | | [address] [place], | | | | | | [place] [address] | | | | + + +---- + + + | Absolute | 0.01Comment: Testing | 0.0 0 - 0.50 | EXTERNAL | | | Eosinophils | performed at [facility], [address] | [address] | LAB | | | | [address], | | | | | | [place] [address] | | | | + + +---- + + + | Absolute | 0.15 (H)Comment: Testing | 0.0 0 - 0.10 | EXTERNAL | | | Basophils | performed at [facility], [facility] | K/u L | LAB | | | | [address] [facility], | | | | | | [place] [address] | | | | + + +---- + + + | RBC | 2+Comment: | | EXTERNAL | | | Morphology | ANISO1+POLY2+HYPO1+MICRO | | LAB | | | | 1+TARGETNORMAL PLT | | | | | | MORPHTesting performed | | | | | | at [facility], [facility] W | | | | | | [facility], | | | | | | [place] [address] | | | | | |1+ | | | | | |MICRO | | | | | |1+ | | | | | |TARGET | | | | | |NORMAL PLT MORPH | | | | | |Testing performed at [facility], [facility] [place] [address] | | | | | | | [...] EXTERNAL | | | | performed at [facility], [address] | | LAB | | | | [place], | | | | | | [place] [address] | | | | + + + [...] EXTERNAL | | | | performed at [facility], [address] | | LAB | | | | [place], | | | | | | [place] [address] | | | | + + + [...] EXTERNAL | | | | performed at [facility], [address] | mmol/L | LAB | | | | [place], | | | | | | [place] [address] | | | | + + + + + + | K | 3.5Comment: Testing | 3.5 - 4.9 | EXTERNAL | | | | performed at [facility], [address] | mmol/L | LAB | | | | [address], | | | | | | [place] [address] | | | | + + + + + + | Cl | 105Comment: Testing | 99 - 109 mmol/L | EXTERNAL | | | | performed at [facility], [address] | | LAB | | | | [address], | | | | | | [place] [address] | | | | + + + + + + | CO2 | 22 (L)Comment: Testing | 23 - 32 mmol/L | EXTERNAL | | | | performed at [facility], [address] | | LAB | | | | [address], | | | | | | [place] [address] | | | | + + + + + + | Anion Gap | 14Comment: Testing | 5 - 20 mmol/L | EXTERNAL | | | | performed at [facility], [address] | | LAB | | | | [address], | | | | | | [place] [address] | | | | + + + + + + | Glucose, | 92Comment: Testing | 65 - 99 mg/dL | EXTERNAL | | | Fasting | performed at [facility], [address] | | LAB | | | | [address], | | | | | | [place] [address] | | | | + + + + + + | BUN | 36 (H)Comment: Testing | 8 - 25 mg/dL | EXTERNAL | | | | performed at [facility], [address] | | LAB | | | | [address], | | | | | | [place] [address] | | | | + + + + + + | Creatinine | 1.07 (H)Comment: Testing | 0.50 - 1.00 | EXTERNAL | | | | performed at [facility], [address] | mg/dL | LAB | | | | [address], | | | | | | [place] [address] | | | | + + + + + + | BUN/Creatin | 34Comment: Testing | | EXTERNAL | | | ine Ratio | performed at [facility], [address] | | LAB | | | | [address], | | | | | | [place] [address] | | | | + + + + + + | Calcium | 7.0 (L)Comment: Testing | 8.5 - 10.5 | EXTERNAL | | | | performed at [facility], [address] | mg/dL | LAB | | | | [address], | | | | | | [place] [address] | | | | + + + + + + | Protein, | 5.9 (L)Comment: Testing | 6.3 - 8.2 g/dL | EXTERNAL | | | Total | performed at [facility], [address] | | LAB | | | | [address], | | | | | | [place] [address] | | | | + + + + + + | Albumin | 2.9 (L)Comment: Testing | 3.6 - 5.0 g/dL | EXTERNAL | | | | performed at [facility], [address] | | LAB | | | | [address], | | | | | | [place] [address] | | | | + + + + + + | Globulin | 3.0Comment: Testing | 1.3 - 4.9 g/dL | EXTERNAL | | | | performed at [facility], [address] | | LAB | | | | [address], | | | | | | [place] [address] | | | | + + + + + + | A/G Ratio | 1.0Comment: Testing | 1.0 - 2.4 | EXTERNAL | | | | performed at [facility], [address] | | LAB | | | | [address], | | | | | | [place] [address] | | | | + + + + + + | Bilirubin | 0.8Comment: Testing | 0.1 - 1.5 mg/dL | EXTERNAL | | | Total | performed at [facility], [address] | | LAB | | | | [address], | | | | | | [place], [place] [address] | | | | + + + + + + | ALP, | 148 (H)Comment: Testing | 35 - 115 U/L | EXTERNAL | | | External | performed at [facility], [address] | | LAB | | | | [address], | | | | | | [place], [place] [address] | | | | + + + + + + | AST | 34Comment: Testing | 10 - 45 U/L | EXTERNAL | | | | performed at [facility], [address] | | LAB | | | | [address], | | | | | | [place] [address] | | | | + + + + + + | ALT | 39Comment: Testing | 10 - 65 U/L | EXTERNAL | | | | performed at [facility], [address] | | LAB | | | | [address], | | | | | | [place] [address] | | | | + + + [...] | | | | | | at [facility], [address] | | | | | | [address], | | | | | | [place] [address] | | | | + + + [...] | | | performed at [facility] | g/dL | LAB | | | | [address];[place], [place] | | | | | | [address] | | | | + + + + + + | Hematocrit, | 32.0 (L)Comment: Testing | 34.0 - 46.0 % | EXTERNAL | | | POC | performed at [facility];[address] | | LAB | | | | [address];[place], [place] | | | | | | [address] | | | | + + + [...] + | MACKENZIE DIANE CHEST 1 VIEW 08/05/2015 9:27 PM HISTORY: [...] | | | | | [place] [address] | | | | + + + + + + | RBC, UA | 1-5Comment: Testing | 0 - 5 /hpf | EXTERNAL | | | | performed at [facility], [address] | | LAB | | | | [address], | | | | | | [place] [address] | | | | + + + + + + | Epithelial | 1-5Comment: Testing | /lpf | EXTERNAL | | | Cells | performed at [facility], [address] | | LAB | | | | [address], | | | | | | [place] [address] | | | | + + + + + + | Bacteria, | NONE SEENComment: | | EXTERNAL | | | UA | Testing performed at | | LAB | | | | [facility], [address] | | | | | | [place] | | | | | | [address] | | | | + + + [...] | LAB | | | | [address], | | | | | | [place] [address] | | | | + + + + + + | Clarity, | TURBIDComment: Testing | | EXTERNAL | | | Urine | performed at [facility], [address] | | LAB | | | | [address], | | | | | | [place] [address] | | | | + + + + + + | Specific | 1.018Comment: Testing | 1.002 - 1.030 | EXTERNAL | | | [place], | performed at [facility], [address] | | LAB | | | Urine | [address], | | | | | | [place] [address] | | | | + + + + + + | Leukocyte | LARGE (A)Comment: | | EXTERNAL | | | Esterase, | Testing performed at | | LAB | | | Urine | [facility], [address] | | | | | | [place] | | | | | | [address] | | | | + + + + + + | Nitrite, | NEGATIVEComment: Testing | | EXTERNAL | | | Urine | performed at [facility], [address] | | LAB | | | | [address], | | | | | | [place] [address] | | | | + + + + + + | Urobilinoge | 0.2Comment: Testing | mg/dL | EXTERNAL | | | n, Urine | performed at [facility], [address] | | LAB | | | | [address], | | | | | | [place] [address] | | | | + + + + + + | Protein, | 30 (A)Comment: Testing | mg/dL | EXTERNAL | | | Urine | performed at [facility], [address] | | LAB | | | | [address], | | | | | | [place] [address] | | | | + + + + + + | pH, Urine | 6.0Comment: Testing | 5.0 - 8.0 | EXTERNAL | | | | performed at [facility], [address] | | LAB | | | | [address], | | | | | | [...] [place] | | | | | | [address] | | | | + + + + + + | Ketones | NEGATIVEComment: Testing | mg/dL | EXTERNAL | | | | performed at [facility], [address] | | LAB | | | | [address], | | | | | | [place] [address] | | | | + + + + + + | Bilirubin, | SMALL (A)Comment: | | EXTERNAL | | | Urine | Testing performed at | | LAB | | | | [facility], [address] | | | | | | [place] | | | | | | [address] | | | | + + + + + + | Glucose, | NEGATIVEComment: Testing | mg/dL | EXTERNAL | | | Urine | performed at [facility], [address] | | LAB | | | | [address] [facility] [address], | | | | | | [place] [address] | | | | + + + [...] | EXTERNAL | | | | [facility];[address] | | LAB | | | | [address]vd;[place] [address] | | | | + + + + + + | Antibody | NEGATIVE | | EXTERNAL | | | Screen | | | LAB | | + + + + + + | Antibody | Testing performed at | | EXTERNAL | | | Screen | [facility];[address] | | LAB | | | | [address];[place] [address] | | | | + + + + + + | BB BAND | [id number] | | EXTERNAL | | | | | | LAB | | + + + + + + | BB BAND | Testing performed at | | EXTERNAL | | | | [facility];[address] | | LAB | | | | [address];[place] [address] | | | | + + + [...] | | | performed at [facility];[address] | | | | | | [address];[place], [place] | | | | | | [address] | | | | + + + [...] | | | | [facility], [address] [facility] [address] | | | | | | [place] | | | | | | [address] | | | | + + +---- + + + | Non- | 4.26Comment: Testing | 3.7 0 - 5.10 | EXTERNAL | | | Red Blood | performed at [facility], [address] | M/u L | LAB | | | Cells | [address], | | | | | Counted | [place] [address] | | | | + + +---- + + + | Hemoglobin | 10.3 (L)Comment: Testing | 11. 3 - 15.5 | EXTERNAL | | | | performed at [facility], [address] | g/d L | LAB | | | | [address], | | | | | | [place] [address] | | | | + + +---- + + + | Hematocrit, | 33.2 (L)Comment: Testing | 34. 0 - 46.0 % | EXTERNAL | | | POC | performed at [facility], [address] | | LAB | | | | [address], | | | | | | [place] [address] | | | | + + +---- + + + | MCV | 77.9 (L)Comment: Testing | 80. 0 - 100.0 fl | EXTERNAL | | | | performed at [facility], [address] | | LAB | | | | [address], | | | | | | [place] [address] | | | | + + +---- + + + | MCH | 24.1 (L)Comment: Testing | 27. 0 - 34.0 pg | EXTERNAL | | | | performed at [facility], [address] | | LAB | | | | [address], | | | | | | [place] [address] | | | | + + +---- + + + | MCHC | 30.9 (L)Comment: Testing | 32. 0 - 35.5 | EXTERNAL | | | | performed at [facility], [address] | g/d L | LAB | | | | [address], | | | | | | [place] [address] | | | | + + +---- + + + | RDW-CV | 61.3 (H)Comment: Testing | 37 - 53 fl | EXTERNAL | | | | performed at [facility], [address] | | LAB | | | | [address], | | | | | | [place] [address] | | | | + + +---- + + + | Platelet | 445 (H)Comment: Testing | 150 - 400 K/uL | EXTERNAL | | | Count | performed at [facility], [address] | | LAB | | | Plasma | [address], | | | | | | [place] [address] | | | | + + +---- + + + | MPV | 8.6Comment: Testing | fl | EXTERNAL | | | | performed at [facility], [address] | | LAB | | | | [address], | | | | | | [place] [address] | | | | + + +---- + + + | Differentia | MANUALComment: Testing | | EXTERNAL | | | l Type | performed at [facility], [address] | | LAB | | | | [address], | | | | | | [place] [address] | | | | + + +---- + + + | Segmented | 77Comment: Testing | % | EXTERNAL | | | Neutrophils | performed at [facility], [address] | | LAB | | | Manual | [address], | | | | | | [place] [address] | | | | + + +---- + + + | Lymphocytes | 14Comment: Testing | % | EXTERNAL | | | Manual | performed at [facility], [address] | | LAB | | | | [address], | | | | | | [place] [address] | | | | + + +---- + + + | Monocytes | 9Comment: Testing | % | EXTERNAL | | | Manual | performed at [facility], [address] | | LAB | | | | [address] [place], | | | | | | [place] [address] | | | | + + +---- + + + | Absolute | 22.20 (H)Comment: | 1.9 0 - 7.40 | EXTERNAL | | | Neutrophils | Testing performed at | K/u L | LAB | | | | [facility], [address] [facility] | | | | | | [place] | | | | | | [address] | | | | + + +---- + + + | Absolute | 4.04 (H)Comment: Testing | 1.0 0 - 3.90 | EXTERNAL | | | Lymphocytes | performed at [facility], [address] | K/u L | LAB | | | | [address], | | | | | | [place] [address] | | | | + + +---- + + + | Absolute | 2.59 (H)Comment: Testing | 0.0 0 - 0.80 | EXTERNAL | | | Monocytes | performed at [facility], [address] | K/u L | LAB | | | | [address], | | | | | | [place] [address] | | | | + + +---- + + + | RBC | 1+Comment: | | EXTERNAL | | | Morphology | ANISO1+POIK2+HYPO1+MICRO | | LAB | | | | 1+TARGETNORMAL PLT | | | | | | MORPHTesting performed | | | | | | at [facility], [address] | | | | | | [facility], | | | | | | [place] [address] | | | | | |1+ | | | | | |MICRO | | | | | |1+ | | | | | |TARGET | | | | | |NORMAL PLT MORPH | | | | | |Testing performed at [facility], [address] [facility], [place] [address] | | | | | | | [...] | | | | | [place] [address] | | | | + + + + + + | K | 2.9 (L)Comment: Testing | 3.5 - 4.9 | EXTERNAL | | | | performed at [facility], [address] | mmol/L | LAB | | | | [address], | | | | | | [place] [address] | | | | + + + + + + | Cl | 98 (L)Comment: Testing | 99 - 109 mmol/L | EXTERNAL | | | | performed at [facility], [address] | | LAB | | | | [address], | | | | | | [place] [address] | | | | + + + + + + | CO2 | 22 (L)Comment: Testing | 23 - 32 mmol/L | EXTERNAL | | | | performed at [facility], [address] | | LAB | | | | [address], | | | | | | [place] [address] | | | | + + + + + + | Anion Gap | 16Comment: Testing | 5 - 20 mmol/L | EXTERNAL | | | | performed at [facility], [address] | | LAB | | | | [address], | | | | | | [place] [address] | | | | + + + + + + | Glucose, | 89Comment: Testing | 65 - 99 mg/dL | EXTERNAL | | | Fasting | performed at [facility], [address] | | LAB | | | | [address], | | | | | | [place] [address] | | | | + + + + + + | BUN | 39 (H)Comment: Testing | 8 - 25 mg/dL | EXTERNAL | | | | performed at [facility], [address] | | LAB | | | | [address], | | | | | | [place] [address] | | | | + + + + + + | Creatinine | 1.49 (H)Comment: Testing | 0.50 - 1.00 | EXTERNAL | | | | performed at [facility], [address] | mg/dL | LAB | | | | [address], | | | | | | [place] [address] | | | | + + + + + + | BUN/Creatin | 26Comment: Testing | | EXTERNAL | | | ine Ratio | performed at [facility], [address] | | LAB | | | | [address], | | | | | | [place] [address] | | | | + + + + + + | Calcium | 7.5 (L)Comment: Testing | 8.5 - 10.5 | EXTERNAL | | | | performed at [facility], [address] | mg/dL | LAB | | | | [address], | | | | | | [place] [address] | | | | + + + + + + | Protein, | 6.8Comment: Testing | 6.3 - 8.2 g/dL | EXTERNAL | | | Total | performed at [facility], [address] | | LAB | | | | [address], | | | | | | [place] [address] | | | | + + + + + + | Albumin | 3.4 (L)Comment: Testing | 3.6 - 5.0 g/dL | EXTERNAL | | | | performed at [facility], [address] | | LAB | | | | [address], | | | | | | [place] [address] | | | | + + + + + + | Globulin | 3.4Comment: Testing | 1.3 - 4.9 g/dL | EXTERNAL | | | | performed at [facility], [address] | | LAB | | | [address], | | | | | | [place] [address] | | | | + + + + + + | A/G Ratio | 1.0Comment: Testing | 1.0 - 2.4 | EXTERNAL | | | | performed at [facility], [address] | | LAB | | | | [address], | | | | | | [place] [address] | | | | + + + + + + | Bilirubin | 0.8Comment: Testing | 0.1 - 1.5 mg/dL | EXTERNAL | | | Total | performed at [facility], [address] | | LAB | | | | [address], | | | | | | [place] [address] | | | | + + + + + + | ALP, | 183 (H)Comment: Testing | 35 - 115 U/L | EXTERNAL | | | External | performed at [facility], [address] | | LAB | | | | [address], | | | | | | [place] [address] | | | | + + + + + + | AST | 48 (H)Comment: Testing | 10 - 45 U/L | EXTERNAL | | | | performed at [facility], [address] | | LAB | | | | [address], | | | | | | [place] [address] | | | | + + + + + + | ALT | 56Comment: Testing | 10 - 65 U/L | EXTERNAL | | | | performed at [facility], [address] | | LAB | | | | [address] [facility], | | | | | | [place] [address] | | | | + + + [...] W | | | | | | [facility], | | | | | | [place] [address] | | | | + + + [...]
--- OUTSIDE RECORDS SUMMARY | ~2019-11-05 | XMS | Encounter Summary ---
Demographics + + + | Address | [address] | | | [place] [address] | + + + | Home Phone | | + + + | Preferred Language | Unknown | + + + | Marital Status | | + + + | Evangelical Affiliation | Unknown | + + + [...] Providers + +------+ + | Care Inspector And Mender Name | Role | Phone | [...] Provider Unknown | | | | | [place], [place] | [phone] | | | | | [phone] | | | | | | [phone] | | | +--------+ + + + [...]
--- OUTSIDE RECORDS SUMMARY | ~2019-11-05 | XMS | Encounter Summary ---
Demographics + + + | Address | [address] | | | [place] [address] | + + + | Home Phone | | + + + | Preferred Language | Unknown | + + + | Marital Status | | + + + | Adventist Affiliation | NRP | + + + | Race | White | + + + | Ethnic Group | Not or | + + + Author + + + | Author | [facility] | + + + | Organization | [facility] | + + + | Address | Unknown | + + + | Phone | Unavailable | + + + Support + + + + + | Name | Relationship | Address | Phone | + + + + + | Kole Hartley | LAMONT | [address] | | | | | [place], [place] | | | | | [address] | | + + + + + | Cami Sawyer | ECON | Unknown | | + + + + + Care Team Providers + +------+ + | Care Service Coordinator Name | Role | Phone | [...] | CONTRAST | [address] | [address] [facility] | | | | | | [address] | Hospital, | | | | | | [facility] | 10th Floor | | | | | | Hospital | [place], [place] | | | | | | [place], [place] | [address] | | | | | | [address] | Phone: | | | | | | Phone: | [phone] | | | | | | [phone] | Fax: | | | | | | Fax: | [phone] | | | | | | [phone] | | +--------+--------+ + + + + [...] | | | VASC LAB | Raphael Saba MD | [address] | | [...] | | | | | | | [place], [place] | | | | | | | [address] | | | | | | | Phone: | | | | | | | [phone] | | | | | | | Fax: | | | | | | | [phone] | +--------+--------+ + + + + Diagnostic [...] | | | | EXTREMITY | [place] [address] | Mailcode: | | | | | BILAT | Phone: | [phone] | | | | | | [phone] | Physician's | | | | | | Fax: | Pavilion | | | | | | [phone] | [place], [place] | | | | | | | [address] | | | | | | | Phone: | | | | | | | [phone] | | | | | | | Fax: | | | | | | | [phone] | +--------+--------+ + + + + Diagnostic [...] | | | | | | | [place], [place] | | | | | | | [address] | | | | | | | Phone: | | | | | | | [phone] | | | | | | | Fax: | | | | | | | [phone] | +--------+--------+ + + + + Diagnostic [...] | | | Dariela Saab MD | [facility] [address] | | | | | TRANSTHORACI | | [address] | | | | | C | | [address] | | | | | ECHOCARDIOGR | | [place] | | | | | AM, ADULT | | [facility] | | | | | | | floor | | | | | | | [place], [place] | | | | | | | [address] | | | | | | | Phone: | | | | | | | [phone] | +--------+--------+ + + + + Diagnostic [...] | | | | EXTREMITY | [place] [address] | Mailcode: | | | | | BILATERAL | Phone: | [phone] | | | | | COMPLETE | [phone] | Physician's | | | | | | Fax: | Pavilion | | | | | | [phone] | [place], [place] | | | | | | | [address] | | | | | | | Phone: | | | | | | | [phone] | | | | | | | Fax: | | | | | | | [phone] | +--------+--------+ + + + + Diagnostic [...] | | | | COMPLETE | [place] [address] | Mailcode: | | | | | BILATERAL | Phone: | [phone] | | | | | | [phone] | Physician's | | | | | | Fax: | Pavilion | | | | | | [phone] | [place], [place] | | | | | | | [address] | | | | | | | Phone: | | | | | | | [phone] | | | | | | | Fax: | | | | | | | [phone] | +--------+--------+ + + + + Diagnostic [...] | | | | | | | [place], [place] | | | | | | | [address] | | | | | | | Phone: | | | | | | | [phone] | | | | | | | Fax: | | | | | | | [phone] | +--------+--------+ + + + + Diagnostic [...] | | | | | | | [place], [place] | | | | | | | [address] | | | | | | | Phone: | | | | | | | [phone] | | | | | | | Fax: | | | | | | | [phone] | +--------+--------+ + + + + Reason [...] + | 03/12/ | Hospital | [facility] [address] | [address], | | | 2011 - | Encounter | [address] | [address] | | | | | [address] [facility] | [facility] [place] | | | 04/01/ | | [place], [place] | [address] | | | 2011 | | [address] | [phone] | | | | | [phone] | | | | | | | Chary Doherty, | | | | | | [address] | | | | | | [address] | | | | | | [place], [place] | | | | | | [address] | | | | | | [phone] | | | | | | | | | | | | Xin Rust | | | | | | MD Nena [address] | | | | | | Romeo [facility] | | | | | | [place], [place] | | | | | | [address] | | | | | | [phone] | | | | | | | | | | | | Osbaldo Garcia MD | | | | | | [address] | | | | | | [facility], | | | | | | [place] [address] | | | | | | [phone] | | | | | | | [...] thrombi: the patient was admitted to [facility] from [place] because she presented wit h nausea, bilious vomiting and was found by CT scan to have bowel wall thickening, 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 At arrival to [facility] it was learned that she did NOT indeed have ischemic colitis. 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 She underwent embolectomy on 03/17, which resulted in adventist of flow and no loss of tissue [...] was agreed that the patient needed a prison treatment and we settled o n remicade. [...] Home Other Discharge Orders and Instructions supervisor pyrotechnic loading your lovenox syringes at the physician's pavilion [...] forming. Please call your GI doctor in [facility] to arrange for your second infusion of [...] whether or not the INR is truly medical field representative of anticoagulation. In patients with APLA [...] I NR on Tuesday. KIRIT MD YOCASTA [facility] DEPARTMENT: [id number]- [facility] PPV Place of Service:- Inpatient Date of Service: 04/01/2012 CSN: [id number] Suggested Modifier: Resident Involved: Yes Suggested CPT: 31609- Dishcarge < 30 min Electronically signed by [...] questions. Debi Oconnor MD GI/Hepatology Fellow Pager: [phone] INTERVAL HISTORY: MRI abdomen shows no abscess; [...] risk of emboli, I called Dr. Rodriges (regional sales director for her PCP) to coordinate f/u of [...] noted any additions above. KIRITMarisa RUST MD [facility] DEPARTMENT: [id number]- [facility] PPV Place of Service:- Inpatient Date of Service: 03/31/2012 CSN: [id number] Suggested Modifier: Resident Involved: Yes Suggested CPT: 57403- Subsequent, Detailed/high complex, 35 min Davonte De [...] state: J Gastroenterol. 2004 Jan;39(10):948-54. PubMed PMID: [id number]. Consulted [facility] for further studies on platelet inhibitor [...] income that does not q ualify for [place]. F/E/N Thrombosis ppx: Warfarin, Lovenox bridge Glucose: not indicated Diet: regular Code: Do Not Resuscitate/Do Not Intubate This patient was seen with GM3, refer to Attending and Resident notes for assessment and pl an. Nuñez [place], Sub-Kitchen Utility Associate Pgr: [phone] Ajay De La Rosa MD - 03/30/2012 [...] bridge after d/c until coumading therapeutic with wound care specialist through medication assistance program Hypoalbuminemia (03/14/2012) Assessment: [...] noted any additions above. KIRIT MD YOCASTA [facility] DEPARTMENT: [id number]- [facility] Faculty PPV Place of Service:- Inpatient Date of Service: 03/30/2012 CSN: [id number] Suggested Modifier: GC Resident Involved: Yes Suggested CPT: 95865- Subsequent, Detailed/high complex, 35 min Debi Yepez [...] follow closely Shaun SAEED GI Fellow Pg [phone] signed by Debi Oconnor MD at 03/30/2012 5:32 PM Jacoby Ko MD - 03/30/2012 10:25 AM PSTFormatting of this note might be different from the origi nal. [facility] DEPARTMENT OF SURGERY Daily Progress Note PROGRESS NOTE: Attending Physician: Xin Rust MD 03/31/2012 Subjective/Overnight Events: - latest CT shows resolution of abscess - no GI bleeding - no rectal/anal pain - tolerating reg diet MEDICATIONS: Reviewed in [facility] VITAL SIGNS: Refer to [facility] Intake/Output Summary (Last 24 hours) at [...] concerns. Jacoby Tovar MD Surgery, R2 Diagnoses: [id number] Crohn disease This assessment and plan was [...] state: J Gastroenterol. 2004 Jan;39(10):948-54. PubMed PMID: [id number]. Consulted Heme for further studies on platelet [...] Nathan Weeks MD Internal Medicine PGY1 Pager [phone] ecilia Toney MD - 03/29/2012 6:37 PM [...] team. Debi Oconnor MD GI Fellow Pager [phone] signed by Debi Oconnor MD at 03/29/2012 [...] planning) Debi Oconnor MD Fellow, Gastroenterology pager: [phone] signed by Debi Oconnor MD at 03/29/2012 [...] for this encounter. OSBALDO GARCIA MD [facility] [address] [place], [place] [id number] Andrew Shah MD - 10:41 AM PST [facility] DEPARTMENT OF SURGERY Daily Progress Note PROGRESS NOTE: Attending Physician: Osbaldo Garcia MD 03/29/2012 Subjective/Overnight Events: - bowel prep initiated - Hct stable - no hematochezia or hemetemesis - MEDICATIONS: Reviewed in [facility] VITAL SIGNS: Refer to [facility] Intake/Output Summary (Last 24 hours) at [...] GI Jacoby Tovar MD Surgery, R2 Diagnoses: [id number] Crohn disease This assessment and plan was [...] Osbaldo Mcfarlane MD - 03/29/2012 6:06 AM [facility] Author: OSBALDO GARCIA MD [...] provided conscious sedation. OSBALDO GARCIA MD [facility] [address] [place] [address] I spent 35 min in critical care (not including procedures) [facility] DEPARTMENT: MICU, [facility]- [id number] Place of Service: Date of Service: 03/29/2012 CSN: [id number] Modifiers:GC Resident Involved: yes Suggested CPT: 37697 Critical Care, Initial 30-74 minutes Carlton Godwin [...] 0659 03/29/12 0700 - 03/30/12 0659 Shift 7637-6363 6016-4524 4401-2717 Daily Total 9662-9919 2359-2610 8004-6840 Daily Total I N T A K E P.O. 1750 2525 4275 I.V. 934 3007 913 1659 Shift Total 934 3740 3450 8124 O U T P U T Urine 1075 2950 1875 5900 Urine 1075 2950 1875 5900 Other 575 972 939 9488 Measured Stool Output 350 425 775 Stool/Urine Mix 575 575 Shift Total 1650 3300 2300 7250 NET -098 254 7191 874 Intake/Output Summary (since admission) at 03/12/12 1910 Last data filed at 03/29/12 0547 Gross for the last 17 days Intake 06541 ml Output 51382 ml Net since Admission -47113 ml Physical Exam: General Appearance: middle aged [...] 8 mg/hr Intravenous CONTINUOUS 8 mg/hr (03/29/12 0153) Lines/Tubes: PICC left PIV R Assessment: 56 [...] Carlton Betancourt DO PGY-1 Internal Medicine Pager [phone] Debi Yepez MD - 03/11 4:31 PM [...] questions. Debi Oconnor MD GI/Hepatology Fellow Pager: [phone] INTERVAL HISTORY: Episode of melena last night [...] in the past. OSBALDO GARCIA MD [facility] [address] [address] I spent 35 min in critical care (not including procedures) [facility] DEPARTMENT: [facility], [facility]- [id number] Place of Service: Date of Service: 03/28/2012 CSN: [id number] Modifiers:GC Resident Involved: yes Suggested CPT: 84821 Critical Care, Initial 30-74 minutes Carlton Godwin [...] 0659 03/28/12 07 - 03/29/12 0659 Shift 0660-5720 5362-0884 6892-7473 Daily Total 5393-0476 6698-0143 6600-3335 Daily Total I N T A K E P.O. 240 300 540 I.V. 404 404 934 934 Blood 1300 1300 Shift Total 716 290 8741 2244 934 934 O U T P U T Urine 500 1200 1700 1075 1075 Urine 500 1200 1700 1075 1075 Other 575 575 Stool 1 1 2 Stool/Urine Mix 575 575 Shift Total 500 1200 1700 1650 1650 NET -260 300 504 544 -710 -716 Intake/Output Summary (since admission) at 03/12/12 1910 Last data filed at 03/28/12 1400 Gross for the last 16 days Intake 83467 ml Output 94012 ml Net since Admission -95914 ml Physical Exam: General Appearance: tearful middle [...] Carlton Betancourt DO PGY-1 Internal Medicine Pager [phone] Andrew Shah MD - 6:52 AM PST [...] with the above assessment and plan. Mirela Oritz DO - 03/28/2012 4:32 AM PST GENERAL [...] Sukumar Zuniga DO Internal Medicine PGY-2 Pg [phone] [place] De La Rosa MD - 03/27/2012 [...] noted any additions above. KIRIT MD YOCASTA [facility] DEPARTMENT: [id number]- [facility] PPV Place of Service:- Inpatient Date of Service: 03/27/2012 CSN: [id number] Suggested Modifier: GC Resident Involved: Yes Suggested CPT: 06387- Subsequent, Detailed/high complex, 35 min Marely Mccann [...] was discussed and formulated with gastroenterology at [facility], Dr. Hennessy. Please call with any questions. Debi Oconnor MD GI/Hepatology Fellow Pager: [phone] INTERVAL HISTORY: Imaging reviewed with radiology; too [...] IMAGING Dung Victor - 2 11:30 AM [facility] NOTE: Visited with Patient. 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 Claim Clerk team will follow as needed. Chaplain Dung Riley M.Div., [facility] [id number] Pager #[phone]; #[phone] Xin De La Rosa MD - 7:31 [...] J Gastroenterol. 2004 Jan;39(10):948-54. PubMed PMID: [id number]. Consulted Heme for further studies on platelet [...] an. ---- Joaquin Rivera, MS4 Pager # [phone] signed by Xin Rust MD at 03/27/2012 [...] noted any additions above. 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 Raphael Norman MD Internal Medicine, PGY-2 87528 [facility] - 03/25/2012 8:58 PM [facility] Internal [...] - not larger Resident spoke with residential team leader who spoke with staff - they did [...] taking more PO if still low ask artist woodblock to see Hypophosphatemia (03/14/2012) Assessment: rechecked and [...] noted any additions above. KIRIT MD YOCASTA [facility] DEPARTMENT: [id number]- [facility] Faculty PPV Place of Service:- Inpatient Date of Service: 03/25/2012 CSN: [id number] Suggested Modifier: GC Resident Involved: Yes Suggested CPT: 49034- Subsequent, Detailed/high complex, 35 min oaquin Rivera [...] J Gastroenterol. 2004 Jan;39(10):948- 54. PubMed PMID: [id number]. Consulted Heme for further studies on platelet [...] income that does not qualif y for [place] F/E/N Thrombosis ppx: Warfarin Glucose: not indicated Diet: regular Code: Do Not Resuscitate/Do Not Intubate This patient was seen with GM3, refer to Attending and Resident notes for assessment and pl an. ---- Joaquin Rivera, MS4 Pager # [phone] Ajay De La Rosa MD - 03/24/2012 [...] drainage of abscess and coordination of care [facility] radiology reviewing perirectal abscess imaging, options for intervention and need for rep eat imagin, also with GI on plan. I personally interviewed the patient, performed the gunter elements of the physical examinatio n, and personally formulated the assessment and plan with the resident. I agree with the MS4 s documentation and have noted any additions above. KIRIT RUST MD [facility] DEPARTMENT: [id number]- [facility] Faculty PPV Place of Service:- Inpatient Date of Service: 03/24/2012 [facility]: [id number] Suggested Modifier: Resident Involved: Yes Suggested CPT: 28725- Subsequent, Detailed/high complex, 35 min Davonte De [...] J Gastroenterol. 2004 Jan;39(10):948- 54. PubMed PMID: [id number]. Consulted Heme for further studies on platelet [...] pl an. ---- VIVIANA Quiroz Pager # [phone] Ajay De La Rosa MD - 03/23/2012 10:44 PM [facility] Internal [...] noted any additions above. KIRITMarisa RUST MD [facility] DEPARTMENT: [id number]- [facility] Faculty PPV Place of Service:- Inpatient Date of Service: 03/23/2012 CSN: [id number] Suggested Modifier: AKHIL Resident Involved: Yes Suggested CPT: 59217- Subsequent, Detailed/high complex, 35 min Davonte De [...] to be done today JERI DIAZ MD [address] [facility] [address] [place] [address] Xin De La Rosa MD - 03/23/2012 [...] state: J Gastroenterol. 2004 Jan;39(10):948-54. PubMed PMID: [id number]. Consulted Heme for further studies on platelet [...] has income that does not qualify for [place] F/E/N Thrombosis ppx: Warfarin Glucose: not indicated Diet: regular Code: Do Not Resuscitate/Do Not Intubate This patient was seen with GM3, refer to Attending and Resident notes for assessment and pl an. ---- Joaquin Rivera, MS4 Pager # [phone] Ajay De La Rosa MD - 03/22/2012 10:50 PM [facility] Internal [...] noted any additions above. KIRIT RUST MD [facility] DEPARTMENT: [id number]- [facility] Faculty PPV Place of Service:- Inpatient Date of Service: 03/22/2012 CSN: [id number] Suggested Modifier: Resident Involved: Yes Suggested CPT: 04938- Subsequent, Detailed/high complex, 35 min ox, Jeri [...] duplex ordered today JERI DIAZ MD [facility] [address] [place] [address] [place] [address] Xin De La Rosa MD - 03/22/2012 [...] 03/20/12 202 1 NA -- 141 @ [facility] -- 142 139 K [...] PTT in mixing 1:1 Neg cardiolipin, neg qkpn-O-gkmmruaemtwy Legionella Agg Urine pending Cultures: BLOOD CULTURE [...] barber: J Gastroenterol. 2004 Jan;39(10):948-54. PubMed PMID: [id number]. - Consult Heme for further studies on [...] an. ---- Joaquin Rivera, 4 Pager # [phone] Ajay De La Rosa MD - 03/21/2012 [...] 142/76 | Pulse 106[sinus tach per telephone lines repairer[ | Temp 37.7 C (99.9 F) | [...] -- also coordination of care with pharmD. [facility] DEPARTMENT: [id number]- [facility] Faculty PPV Place of Service:- Inpatient Date of Service: 03/21/2012 CSN: [id number] Suggested Modifier: GC Resident Involved: Yes Suggested CPT: 14631- Subsequent, Detailed/high complex, 35 min Jennifer Tolentino [facility] - 03/21/2012 12:38 PM PST . [...] Female with multiple complex medical problems; [facility] Vascular Surge ry consulted due to [...] new baseline Ok to discharge per [facility] Vascular Surgeons once ambulating and medical issues are stable. Will continue to follow while in patient. [facility] Vascular Surgery Clinic, [facility] [address], phone number [phone] Please schedule followup appointment within 2-3 weeks of surgery for wound check. Dr. Sukumar Salgado, [facility] Vascular Surgery Attending. MERT OLIVA [facility] VASCULAR SURGERY [address] [place] [address] ham, Moses Asher MD - 03/21/2012 6:55 [...] w ill need to establish care with postal transportation clerk so that further treatment options can be [...] assessment and plan. Moses Anthony MD Neurology Kitchen Utility Associate Pager [phone] oaquin Rivera - 02/2012 6:55 AM PST [...] an. ---- Joaquin Rivera, MS4 Pager # [phone] Xin De La Rosa M D - [...] noted any additions above. KIRIT MD YOCASTA [facility] DEPARTMENT: [id number]- [facility] Faculty PPV Place of Service:- Inpatient Date of Service: 03/20/2012 CSN: [id number] Suggested Modifier: Resident Involved: Yes Suggested CPT: 43349- Subsequent, Detailed/high complex, 35 min Jennifer Tolentino [...] Female with multiple complex medical problems; [facility] Vascular Surge ry consulted due to [...] chair as tolerated, RLE WBAT -Please obtain [facility] Arterial duplex ultrasound/DELORIS of both legs prior to discharge as n ew baselineObtain ABIs with waveforms To establish new blood-flow baseline Ok to discharge per [facility] Vascular Surgeons once ambulating and medical issues are stable. Will continue to follow while in patient. [facility] Vascular Surgery Clinic, [facility] [address], phone number [phone] Please schedule followup appointment within 2-3 weeks of surgery for wound check. Dr. Sukumar Salgado, [facility] Vascular Surgery Attending. MERT OLIVA [facility] VASCULAR SURGERY [address] [place] [address] icprince, Raphael Saab MD - 03/20/2012 7:58 [...] plan. Raphael Norman MD Internal Medicine, PGY-2 90724 oaquin Rivera - 7:58 AM PST Medicine [...] an. ---- Joaquin Rivera, MS4 Pager # [phone] Juma Pimetnel MD - 03/19/2012 3:35 PM PST Inpatient [...] 20 mEq, 20 mEq, Oral, ONCE, Moses sAher MD predniSONE (aka DELTASONE) tablet 15 mg, [...] is Dr. Salgado. JUMA CARRINGTON MD [facility] [address] [place] [address] [place] [address] Chary Moore M D - 03/19/2012 9:14 [...] note from 03/14 for details. Therefore the ilyz-yihz-wnyhf plan givens s been to allow her [...] Lovenox bridge to be covered by [facility]. 9) Occlusive thrombus 10) Hypoalbuminemia 11) Hypophosphatemia 12) TIA (transient ischemic attack) - with PFO 13) PFO (patent foramen ovale) - plan is for lifelong coumadin. No additional benefit from device closure per CLOSURE I trial. Chary Doherty MD Chief Resident, Internal Medicine Pager: [phone] [facility] DEPARTMENT: Hosp- [id number] Place of Service: Date of Service: 03/19/2012 CSN: [id number] Modifiers:GC Resident Involved: Yes Suggested CPT: 77871 Subsequent Visit Detailed/High complexity 35 min I [...] will need to establish c are with postal transportation clerk so that further treatment options can be [...] assessment and plan. Moses Anthony MD Neurology Kitchen Utility Associate Pager [phone] Jose Antonio Baekr MD - 03/18/2012 1:01 PM PST Inpatient Vascular Surgery Progress Note Hospital Day:6 Author; JOSE ANTONIO TOENY MD Attending Physician: Chary Doherty MD S: [...] outpt GI, plans to establish care in [place], perhaps Dr. Byrd. Transitioning to PO meds, [...] attack) 12) PFO (patent foramen ovale) Chary Doheryt MD Chief Resident, Internal Medicine Pager: [phone] [facility] DEPARTMENT: Hosp- [id number] Place of Service: Date of Service: 03/18/2012 CSN: [id number] Modifiers: Resident Involved: Yes Suggested CPT: 03218 Subsequent Visit Exp Prob Foc/Mod Complexity 25 [...] Date 03/18/12 07 - 03/19/12 0659 Shift 3294-2532 9754-0244 7035-0451 24 Hour Total I N T A K E P.O. 620 620 I.V. 20 20 40 Shift Total 640 20 660 O U T P U T Urine 675 100 775 Other 400 400 Shift Total 686 519 2086 Weight (kg) 74.1 74.1 74.1 74.1 General: [...] refusing). Will need to establish care with postal transportation clerk so that further treatment options can be [...] in MS4 note. Moses Anthony MD Neurology Kitchen Utility Associate Pager [phone] signed by Moses Asher MD at 03/18/2012 9:50 PM [facility] Rivera - 03/18/2012 9:18 AM PST Medicine [...] an. ---- Joaquin Rivera, MS4 Pager # [phone] Chary Moore MD - 03/17/2012 8:39 PM [...] refusing). Will need to establish care with postal transportation clerk so this can be discussed as outpt [...] Doherty MD Chief Resident, Internal Medicine Pager: [phone] [facility] DEPARTMENT: Hosp- [id number] Place of Service: IP - Date of Service: 03/17/2012 CSN: [id number] Modifiers:GC Resident Involved: Yes Suggested CPT: 74348 Subsequent Visit Detailed/High complexity 35 min I [...] end of case. MIRELA SALGADO MD [facility] [address] [address] [place] [address] ham, Gloria Lawson MD - 1 05/18/2011 [...] until she's therapeutic with her coumadin and [facility] has agreed to provide discounted [...] y Gloria Anthony MD Neurology PGY1 Pager: [phone] Joaquin Hui - 10/2011 7:19 AM PST [...] an. ---- Joaquin Rivera, MS4 Pager # [phone] Chary Moore MD - 03/16/2012 12:56 PM [...] Doherty MD Chief Resident, Internal Medicine Pager: [phone] [facility] DEPARTMENT: Hosp- [id number] Place of Service: - Date of Service: 03/16/2012 CSN: [id number] Modifiers: Resident Involved: Yes Suggested CPT: 95400 Subsequent Visit Exp Prob Foc/Mod Complexity 25 min and 78980 Subseque nt Visit Detailed/High complexity 35 min [...] DNR/DNI Gloria Anthony MD Neurology PGY-1 Pager [phone] The patient was seen and discussed with [...] Doherty MD Chief Resident, Internal Medicine Pager: [phone] [facility] DEPARTMENT: Hosp- [id number] Place of Service: - Date of Service: 03/15/2012 CSN: [id number] Modifiers:GC Resident Involved: Yes Suggested CPT: 64747 Subsequent Visit Detailed/High complexity 35 min Dariela Duenas Md - 03/15/2012 9:15 PM PSTINPATIENT PROGRESS NOTE Hospital Day:3 Author; DAIRELA SANTOYO MD Attending Physician: Chary Doherty MD [...] plan. Dariela Santoyo MD Internal Medicine PGY-3 [id number] Daryl Singelton MD - 08/2011 7:18 PM PSTHematology Attending Consult Note: I saw and examined Ms. Hartley with the Hematology Fellow, Dr. Anthony Camejo and [facility] [place] [facility] the 5A Medicine unit. I participated in the gunter components of today's [facility] pital visit including review of the [...] re Daryl Arteaga MD, PhD Hematology Oncology [facility] DEPARTMENT: [id number] HEM FACULTY [facility] Place of Service: - Inpatient Date of Service: 03/15/2012 Modifiers: GC - Resident Involved Suggested CPT: 58993 - Subsequent, Detailed/High complex 35 min rammer, [...] clinic f/u closely; our clinic at [facility] cannot provide any suppli es -anticoagulation [...] as above. MD Hematology/Oncology Fellow Pager # [phone] signed by Daryl Arteaga MD at 03/15/2012 [...] with any questions. Bigg Robles, R1 Pager: [phone] INTERVAL HISTORY: - NAEO - VSS, AF [...] discuss further tomorrow, tentatively scheduled for Tuesday. Sandoavl Galvez MD, R-4 Vascular Staff I saw [...] to pro ceed. Mirela Samano M.D. [facility] Vascular Surgery [address] [place] [address], [address] [phone] Email: [email or web address] Sandoval Ko MD - 03/15/2012 [...] off to day. Jacoby Tovar MD Surgery [id number] signed by Sandoval Tovar MD at 03/15/2012 [...] monitor Gloria Anthony MD Neurology PGY1 Pager [phone] Daryl Singleton MD - 07/2011 4:57 PM PSTHematology Attending Consult Note: I saw and examined Ms. Hartley with the Hematology Fellow, Dr. Anthony Camejo in the [address] [place] [address] unit. I participated in the gunter components [...] re Daryl Arteaga MD, PhD Hematology Oncology [facility] DEPARTMENT: [id number] HEM FACULTY [facility] Place of Service: - Inpatient Date of Service: 03/14/2012 Modifiers: GC - Resident Involved Suggested CPT: 71153 - Subsequent, Detailed/High complex 35 min Anthony [...] as above. MD Hematology/Oncology Fellow Pager # [phone] signed by Daryl Arteaga MD at 03/14/2012 [...] really for treatment Recommendations communicated with GM3 design intern. We will continue to follow. This plan was discussed and formulated with gastroenterology at [facility], Dr. Casiano. Please call with any questions. 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 Gopal Casiano MD Building Services Techniciancattle feeder Department of Gastroenterology INTERVAL HISTORY: - NAEO [...] Reviewed outside imaging with radiologist at [facility] and CT abd and pelvis shows [...] Becca Moncada MD General Surgery, R2 Pager: [phone] [facility] Staff I saw and evaluated the patient. I agree with the findings and the plan of care as jannie hair in the resident s note. Left foot warm and well perfused. Patient pain-free. Will repe at CTA to see if there has been any thrombus progression. No urgent need for surgery on left leg at this point. Mirela Samano M.D. [facility] Vascular Surgery [address] [place] [address], [address] [address] Email: [email or web address] Irene Aguilera MD - 03/14/2012 [...] remained hemodynamically stable. Transferre d to [facility] for possible thrombectomy, initiated heparin therapy, [...] were obscured by overlying bowel gas. The hje-vv-[id number] left external iliac arteries appear patent with [...] A SALCIDO MD R2, General Surgery [facility] 03/13/2012 1:20 PM Current Facility-Administered Medications Medication Dose Route Frequency Provider Last Rate Last Dose aspirin tablet 325 mg 325 mg Oral DAILY Taylor Macias MD cefTRIAXone (aka ROCEPHIN) IV 1 g 1 g Intravenous Q24H Bibiana Adams PA-C 1 g at 1 05/13/11 2301 dextrose IV 25 mL 25 mL Intravenous PRN iBbiana Adams PA-C esomeprazole (aka NEXIUM) IV 40 [...] Becca Moncada MD General Surgery, R2 Pager: [phone] Vascular Staff I saw and evaluated the [...] a later time. Mirela Samano M.D. [facility] Vascular Surgery [address] [place] [address], [address] [address] Email: [email or web address] Richie Goodman MD - 06/2011 11:15 AM PSTI was present and rounded with the ARCHITECTURAL SALES CONSULTANT today. I interviewed and examined the patient. I reviewed the history, as documented today. I agree with the ARCHITECTURAL SALES CONSULTANT's assessmen t and plan. Pt is stable [...] 75 Morphine IV PRN zofran PRN Labs: [facility] reviewed Significant Results K 3.3 Mg [...] visceral and aortic thrombus transfer red from [place] last night with concerns for ischemic bowel. [...] celiac arteries who was transferred to [facility] for management o f vascular disease and possible bowel ischemia. No evidence of bowel ischemia, bowel thicken ing likely Crohn's flare. 1. Crohn's flare: GI consult. 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 [...] Her abdominal exam does not reveal peritonitis. [facility] ular surgery recommended a heparin drip given her subtherapeutic INR. Hematology will be con sulted for her leukocytosis and declining platelet count in the setting of heparin therapy. Gastroenterology is making recommendations regarding acute management of her Crohn's disease . She will no longer require ICU care and she will transfer to the general medicine service. Jf Wiseman MD FACS elevator operator freight Division of Trauma, Critical Care, and Acute Care Surgery [phone] documented in this e ncounter Plan of [...] [facility] | [address] | [place] [address] | | | SERVICES, CORE | PARK [...] [facility] | [address] | [place] [address] | | | SERVICES, CORE | PARK [...] + + + + + | [facility] | [address] | [place] [address] | | | SERVICES, CORE | [address] | | | + + + + + MAGNESIUM, PLASMA (03/31/2012 3:58 AM PST) + +-------+ + + + | Component | Value | Ref Range | Performed | Pathologist | | | | | At | Signature | + +-------+ + + + | MAGNESIUM,P | 1.9 | 1.8 - 2.5 mg/dL | [facility] | | | LASMA | | | [...] | + + + + + | [facility] | [address] | [place] [address] | | | SERVICES, CORE | BERTRAM [...] [facility] | [address] | [place] [address] | | | SERVICES, CORE | BERTRAM [...] | | | | | | Meera Hlilman M.D.Author: | | | | | | [...] | + +---------+ + + | [facility] DEPARTMENT OF | | | | [...] | + +---------+ + + | [facility] DEPARTMENT OF | | | | [...] | + + + + + | [facility] | [address] | [place] [address] | | | SERVICES, CORE | BERTRAM [...] [facility] | [address] | [place] [address] | | | SERVICES, CORE | PARK [...] [facility] | [address] | [place] [address] | | | SERVICES, CORE | PARK [...] [facility] | [address] | [place] [address] | | | SERVICES, CORE | PARK [...] | + + + + + | [facility] | [address] | [place] [address] | | | SERVICES, CORE | BERTRAM [...] | + + + + + | [facility] | [address] | [place] [address] | | | SERVICES, CORE | BERTRAM [...] [facility] | [address] | [place] [address] | | | SERVICES, CORE | PARK [...] 44.6 (H) | 26.0 - 36.0 | [facility] | | | | | seconds | [...] | + + + + + | [facility] | [address] | [place] [address] | | | SERVICES, JANELL | BERTRAM [...] + | [facility] | [address] | [place] [address] | | | [place] | | | [...] + | [facility] | [address] | [place] [address] | | | [place] | | | | + + + [...] + | [facility] | [address] | [place] [address] | | | [place] | | | [...] [facility] | [address] | [place] [address] | | | SERVICES, CORE | PARK [...] + + + + + | [facility] | [address] | [place] [address] | | | SERVICES, CORE | PARK [...] [facility] | [address] | [place] [address] | | | SERVICES, CORE | PARK [...] [facility] | [address] | [place] [address] | | | JANELL SHARP | BERTRAM [...] + + + + | [facility] | [address] | [place] [address] | | | PATHOLOGY | [address] [...] [facility] | [address] | [place] [address] | | | SERVICES, CORE | PARK [...] [facility] | [address] | [place] [address] | | | JANELL SHARP | PARK [...] | [facility] | [address] | [place], [place] | | | [facility] | [address] | [address] | | | TESTS | | | [...] + + + + + | [facility] | [address] | [place] [address] | | | SERVICES, CORE | PARK [...] | + + + + + | [facility] | [address] | [place] [address] | | | SERVICES, CORE | BERTRAM [...] [facility] | [address] | [place] [address] | | | SERVICES, JANELL | BERTRAM [...] - [facility] | [address] | [place], [place] | | | [facility] | [facility] | [address] | | | TESTS | | | [...] [facility] | [address] | [place] [address] | | | SERVICES, CORE | PARK [...] [facility] | [address] | [place] [address] | | | SERVICES, CORE | PARK [...] | + + + + + | [facility] | [address] | [place] [address] | | | SERVICES, CORE | BERTRAM [...] | + + + + + | [facility] | [address] | [place] [address] | | | SERVICES, JANELL | BERTRAM [...] + + + + | PRODUCT | [id number] | | [facility] | | | UNIT [...] + + + + | BLOOD | 22889 | | [facility] | | | PRODUCT [...] DEPARTMENT OF | [address] | [place] [address] | | | PATHOLOGY | [address] [...] + + + + | PRODUCT | [id number] | | [facility] | | | UNIT [...] + + + + | BLOOD | 70917 | | [facility] | | | PRODUCT [...] + + + + + | [facility] DE[facility] | [address] | [place] [address] | | | PATHOLOGY | [address] [...] [facility] | [address] | [place], [place] | | | KAILEY MOORE | [facility] | [address] | | | TESTS | | | [...] | + + + + + | [facility] | [address] | [place] [address] | | | SERVICES, CORE | BERTRAM [...] view image for the detailed interpretation from Leftronic results. | CARDIOLOGY | + + + + + + + + | Performing | Address | City/State/Zipcode | Phone Number | | Organization | | | | + + + + + | [facility] | [address] | [place], [place] | | | CARDIOLOGY | [address] | [address] | | + + + + + [...] [facility] | [address] | [place] [address] | | | SERVICES, CORE | PARK [...] + + + + | PRODUCT | [id number] | | [facility] | | | UNIT [...] + + + + | BLOOD | 21629 | | [facility] | | | PRODUCT [...] + + + + + | [facility] DE[facility] | [address] | [place] [address] | | | PATHOLOGY | [address] [...] + + + + | PRODUCT | [id number] | | [facility] | | | UNIT [...] + + + + | BLOOD | 54486 | | [facility] | | | PRODUCT [...] DEPARTMENT OF | [address] | [place], [place] [address] | | | PATHOLOGY | [address] [...] [facility] | [address] | [place] [address] | | | SERVICES, CORE | PARK [...] | + + + + + | [facility] | [address] | [place] [address] | | | SERVICES, CORE | BERTRAM [...] | + + + + + | [facility] | [address] | [place] [address] | | | SERVICES, CORE | BERTRAM [...] [facility] | [address] | [place] [address] | | | SERVICES, CORE | PARK [...] [facility] | [address] | [place] [address] | | | SERVICES, | [address] [...] + + + + + | [facility] | [address] | [place] [address] | | | SERVICES, | [address] [...] + + + + | PRODUCT | [id number] | | [facility] | | | UNIT [...] + + + + | BLOOD | 25956 | | [facility] | | | PRODUCT [...] + + + + + | [facility] DEPARTMENT OF | [address] | [place] [address] | | | PATHOLOGY | [address] [...] + + + + | PRODUCT | [id number] | | [facility] | | | UNIT [...] + + + + | BLOOD | 45648 | | [facility] | | | PRODUCT [...] DEPARTMENT OF | [address] | [place] [address] | | | PATHOLOGY | [address] [...] [facility] | [address] | [place] [address] | | | SERVICES, CORE | PARK [...] + + + + + | [facility] | [address] | [place] [address] | | | SERVICES, CORE | [address] | | | + + + + + MAGNESIUM, PLASMA (03/27/2012 5:27 AM PST) + +---------+ + + + | Component | Value | Ref Range | Performed | Pathologist | | | | | At | Signature | + +---------+ + + + | MAGNESIUM,P | 1.7 (L) | 1.8 - 2.5 mg/dL | [facility] | | | LASMA | | | [...] | + + + + + | [facility] | [address] | [place] [address] | | | SERVICES, CORE | PARK [...] | + + + + + | [facility] | [address] | [place] [address] | | | SERVICES, CORE | [address] [...] [facility] | [address] | [place] [address] | | | SERVICES, CORE | P[address] [...] [facility] | [address] | [place] [address] | | | SERVICES, CORE | PARK [...] + + + + + | [facility] | [address] | [place] [address] | | | SERVICES, CORE | PARK [...] LABORATORY | [address] | [place] [address] | | | SERVICES, CORE | PARK [...] | + + + + + | [facility] | [address] | [place] [address] | | | SERVICES, JANELL | BERTRAM [...] [facility] | [address] | [place] [address] | | | SERVICES, CORE | PARK [...] + + + + + | [facility] | [address] | [place] [address] | | | SERVICES, CORE | [address] | | | + + + + + MAGNESIUM, PLASMA (03/25/2012 3:13 AM PST) + +---------+ + + + | Component | Value | Ref Range | Performed | Pathologist | | | | | At | Signature | + +---------+ + + + | MAGNESIUM,P | 1.7 (L) | 1.8 - 2.5 mg/dL | [facility] | | | LASMA | | [...] [facility] | [address] | [place] [address] | | | SERVICES, CORE | PARK [...] [facility] | [address] | [place] [address] | | | SERVICES, CORE [...] [facility] | [address] | [place] [address] | | | SERVICES, CORE | PARK [...] | + + + + + | [facility] | [address] | [place] [address] | | | SERVICES, JANELL | BERTRAM [...] oral, | | | | | | [id number] hrs | | | | | | [...] | + +---------+ + + | [facility] DEPARTMENT OF | | | | [...] LABORATORY | [address] | [place] [address] | | | SERVICES, CORE | PARK [...] + + + + + | [facility] | [address] | [place] [address] | | | SERVICES, CORE | PARK [...] + + + + + | [facility] | [address] | [place] [address] | | | SERVICES, CORE | BERTRAM [...] + + + + + | [facility] | [address] | [place] [address] | | | SERVICES, CORE | BERTRAM [...] [facility] | [address] | [place] [address] | | | SERVICES, JANELL | BERTRAM [...] | | | | Final | | [place] | | | | CULTURE RESULT:< 10,000 [...] + | [facility] | [address] | [place], [place] [address] | | | [facility] | | | | + + + [...] [facility] | [address] | [place] [address] | | | SERVICES, CORE | PARK [...] [facility] | [address] | [place] [address] | | | SERVICES, CORE | PARK [...] [facility] | [address] | [place] [address] | | | JANELL SHARP | BERTRAM [...] | + + + + + | [facility] | [address] | [place] [address] | | | SERVICES, CORE | BERTRAM [...] + + | Please click | [facility] | | on view image for the detailed interpretation from Leftronic results. | CARDIOLOGY | + + + + + + + + | Performing | Address | City/State/Zipcode | Phone Number | | Organization | | | | + + + + + | [facility] | [address] | [place], [place] | | | CARDIOLOGY | [address] | [address] | | + + + + + [...] | + + + + + | [facility] | [address] | [place] [address] | | | SERVICES, CORE | BERTRAM [...] [facility] | [address] | [place] [address] | | | JANELL SHARP | BERTRAM [...] + + + + + | [facility] | [address] | [place] [address] | | | JANELL SHARP | BERTRAM [...] | + + + + + | [facility] | [address] | [place] [address] | | | SERVICES, CORE | BERTRAM [...] | | | | | [facility],[address] [place] [address] | | | | | | [place] [address] | | | | | | [phone]. | | | | | | keith, [...] [facility] | [address] | [place], [place] | | | [facility] | | [address] | | + + + + + [...] | + + + + + | [facility] | [address] | [place] [address] | | | SERVICES, CORE | BERTRAM [...] + + + + + | [facility] | [address] | [place] [address] | | | SERVICES, CORE | [address] | | | + + + + + CULTURE, BLOOD BACTI & YEAST [facility] (03/22/2012 7:08 PM PST) + + [...] | + + + + + | [facility] | [address] | [place] [address] | | | SERVICES, CORE | BERTRAM [...] | | | | | XIN GARZON ([id number]) | | | | | | on 03/22/2012 4:25:06 PM | | | | + + + + + + + + | Specimen | + + | | + + + + + | Narrative | Performed At | + + + | Please click | [facility] | | on view image for the detailed interpretation from Leftronic results. | CARDIOLOGY | + + + + + + + + | Performing | Address | City/State/Zipcode | Phone Number | | Organization | | | | + + + + + | [facility] | [address] | [place], [place] | | | CARDIOLOGY | [address] | [address] | | + + + + + [...] [facility] | [address] | [place], [place] | | | [facility] | [facility] | [address] | | | TESTS | | | [...] [facility] | [address] | [place], [place] | | | [facility] | [facility] | [address] | | | TESTS | | | [...] + + + + + | [facility] | [address] | [place] [address] | | | SERVICES, CORE | [address] [...] | + + + + + | [facility] | [address] | [place] [address] | | | SERVICES, JANELL | BERTRAM [...] | + + + + + | [facility] | [address] | [place] [address] | | | SERVICES, JANELL | BERTRAM [...] [facility] | [address] | [place] [address] | | | SERVICES, CORE | PARK [...] | + + + + + | [facility] | [address] | [place] [address] | | | SERVICES, CORE | BERTRAM [...] [facility] | [address] | [place], [place] | | | [facility] | [address] | [address] | | | TESTS | | | [...] | + + + + + | [facility] | [address] | [place] [address] | | | SERVICES, CORE | PARK [...] [facility] | [address] | [place], [place] | | | [facility] | [address] | [address] | | | TESTS | | | [...] view image for the detailed interpretation from Leftronic results. | CARDIOLOGY | + + + + + + + + | Performing | Address | City/State/Zipcode | Phone Number | | Organization | | | | + + + + + | [facility] | [address] | [place], [place] | | | CARDIOLOGY | [address] | [address] | | + + + + + [...] + + + | [facility] | [address] | [place], [place] | | | [facility] | [address] | [address] | | | TESTS | | | [...] [facility] | [address] | [place] [address] | | | JANELL SHARP | BERTRAM [...] [facility] | [address] | [place] [address] | | | SERVICES, CORE | BERTRAM [...] + + + + + | [facility] | [address] | [place] [address] | | | ARON, JANELL | BERTRAM [...] + + + + + | [facility] | [address] | [place] [address] | | | SERVICES, JANELL | BERTRAM [...] | + + + + + | [facility] | [address] | [place] [address] | | | SERVICES, CORE | [address] [...] GARCIA | | | | | | ([id number]) on 03/22/2012 | | | | | | 12:47:28 PM | | | | + + + + + + + + | Specimen | + + | | + + + + + | Narrative | Performed At | + + + | Please click | [facility] | | on view image for the detailed interpretation from Leftronic results. | CARDIOLOGY | + + + + + + + + | Performing | Address | City/State/Zipcode | Phone Number | | Organization | | | | + + + + + | [facility] | [address] | [place], [place] | | | CARDIOLOGY | [address] | [address] | | + + + + + [...] | + +---------+ + + | [facility] DEPARTMENT OF | | | | [...] [facility] | [address] | [place] [address] | | | SERVICES, CORE | BERTRAM [...] | + + + + + | [facility] | [address] | [place] [address] | | | SERVICES, CORE | BERTRAM [...] [facility] | [address] | [place], [place] | | | KAILEY MOORE | [address] | [address] | | | TESTS | | | [...] view image for the detailed interpretation from Leftronic results. | CARDIOLOGY | + + + + + + + + | Performing | Address | City/State/Zipcode | Phone Number | | Organization | | | | + + + + + | [facility] | [address] | [place], [place] | | | CARDIOLOGY | [address] | [address] | | + + + + + [...] MARILYN | [address] | [place], [place] | | | [facility] | [address] | [address] | | | TESTS | | | [...] | 60 - 99 mg/dL | [facility] - | | | GLUCOSE, | [...] SANDERS | [address] | [place], [place] | | | [facility] | [address] | [address] | | | TESTS | | | [...] | + +---------+ + + | [facility] DEPARTMENT OF | | | | [...] [facility] | [address] | [place] [address] | | | ARON, CORE | PARK [...] + + + + + | [facility] | [address] | [place], [place] [address] | | | SERVICES, CORE | PARK [...] [facility] | [address] | [place] [address] | | | SERVICES, CORE | PARK [...] | + + + + + | [facility] | [address] | [place] [address] | | | SERVICES, CORE | BERTRAM [...] MARQU[facility] | [address] | [place], [place] | | | [facility] | [facility] | [address] | | | TESTS | | | [...] - MARILYN | [address] | [place], [place] | | | [facility] | [address] | [address] | | | TESTS | | | [...] + + + + + | [facility] | [address] | [place] [address] | | | SERVICES, CORE | BERTRAM [...] | + + + + + | [facility] | [address] | [place] [address] | | | SERVICES, CORE | BERTRAM [...] MARQUAM | [address] | [place], [place] | | | [facility] | [address] | [address] | | | TESTS | | | [...] view image for the detailed interpretation from Leftronic results. | CARDIOLOGY | + + + + + + + + | Performing | Address | City/State/Zipcode | Phone Number | | Organization | | | | + + + + + | [facility] | [address] | [place], [place] | | | CARDIOLOGY | [address] | [address] | | + + + + + [...] SANDERS | [address] | [place], [place] | | | [facility] | [address] | [address] | | | TESTS | | | [...] | ARTUR S[facility]ERS | [address] | [place], [place] | | | [facility] | [address] | [address] | | | TESTS | | | [...] | + + + + + | [facility] | [address] | [place] [address] | | | JANELL SHARP | BERTRAM [...] + + + + + | [facility] | [address] | [place] [address] | | | JANELL SHARP | BERTRAM [...] + + + + + | [facility] | [address] | [place] [address] | | | SERVICES, CORE | PARK [...] + + + | [facility] | [address] | [place] [address] | | | SERVICES, JANELL | BERTRAM [...] | | | | Final | | [place] | | | | CULTURE RESULT:No growth [...] + | [facility] - | [address] | [place] [address] | | | [place] | | | [...] [facility] | [address] | [place] [address] | | | SERVICES, CORE | PARK [...] | + + + + + | [facility] | [address] | [place] [address] | | | SERVICES, CORE | BERTRAM [...] + + + + + | [facility] | [address] | [place] [address] | | | SERVICES, CORE | PARK [...] + + + + + | [facility] | [address] | [place] [address] | | | SERVICES, CORE | [address] | | | + + + + + CULTURE, BLOOD BACTI & YEAST [facility] (03/19/2012 1:10 AM PST) + + + + + + | Component | Value | Ref Range | Performed | Pathologist | | | | | At | Signature | + + + + + + | BLOOD | Final Report:No Bacteria | Final Report:No | [facility] | | | CULTURE | or Yeast [...] | + + + + + | [facility] | [address] | [place] [address] | | | SERVICES, CORE | BERTRAM [...] [facility] | [address] | [place], [place] | | | [facility] | [address] | [address] | | | TESTS | | | [...] | + + + + + | [facility] | [address] | [place] [address] | | | JANELL SHARP | BERTRAM [...] | 60 - 99 mg/dL | [facility] - | | | GLUCOSE, | [...] SANDERS | [address] | [place], [place] | | | [facility] | [address] | [address] | | | TESTS | | | [...] | + + + + + | [facility] | [address] | [place] [address] | | | SERVICES, CORE | PARK [...] [facility] | [address] | [place] [address] | | | SERVICES, CORE | PARK [...] + + | [facility] | [address] [facility] [address] | [place], [place] | | | [facility] | [facility] | [address] | | | TESTS | | | | + + + + + OPERATION RECORD (03/18/2012 11:22 AM PST) + + | Transcriptions | + + | Mirela Salgado MD - 03/18/2012 8:38 AM PST Date: 03/17/2012ttending | | Surgeon: Mirela Salgado M.D.Food Science Technician(s): Sandoval | | Bennett Galvez M.D.Preoperative [...] | | tolerated the procedure well.MIRELA SALGADO, [facility] / [id number] / | | [id number] / [id number] / T: 03/17/2012 | |was no pulse. [...] | | | |MIRELA SALGADO MD | |sales development associate | | | |GLM / HS | |[id number] / [id number] / [id number] / | | | | | + [...] | + + + + + | [facility] | [address] | [place] [address] | | | SERVICES, CORE | BERTRAM [...] ARTUR G[facility]NER | [address] | [place] [address] | | | SERVICES, CORE | PARK [...] [facility] | [address] | [place] [address] | | | SERVICES, CORE | PARK [...] [facility] | [address] | [place] [address] | | | SERVICES, CORE | PARK [...] + + + + + | [facility] | [address] | [place] [address] | | | SERVICES, CORE | PARK [...] + + + + + | [facility] | [address] | [place] [address] | | | JANELL SHARP | PARK [...] + + + + + | [facility] | [address] | [place] [address] | | | JANELL SHARP | BERTRAM [...] | 60 - 99 mg/dL | [facility] - | | | GLUCOSE, | [...] MARILYN | [address] | [place], [place] | | | [facility] | [address] | [address] | | | TESTS | | | [...] + + | Performing | Address | City/State/[facility]ode | Phone Number | | Organization | | | | + + + + + | [facility] - [facility] | [address] | [place] | | | [facility] | [facility] | [address] | | | TESTS | | | [...] MARQU[facility] | [address] | [place], [place] | | | [facility] | [facility] | [address] | | | TESTS | | | [...] [facility] | [address] | [place] [address] | | | SERVICES, CORE | PARK [...] + + + + + | [facility] | [address] | [place] [address] | | | SERVICES, CORE | PARK [...] [facility] | [address] | [place] [address] | | | SERVICES, CORE | PARK [...] | + + + + + | [facility] | [address] | [place] [address] | | | SERVICES, CORE | BERTRAM [...] [facility] | [address] | [place], [place] | | | [facility] | [address] | [address] | | | TESTS | | | [...] [facility] | [address] | [place] [address] | | | SERVICES, | [address] [...] + + + + + | [facility] | [address] | [place] [address] | | | SERVICES, | [address] [...] + + + + + | [facility] | [address] | [place] [address] | | | ARON, [facility] | [address] | | | + [...] SANDERS | [address] | [place], [place] | | | [facility] | [address] | [address] | | | TESTS | | | [...] [facility]AM | [address] | [place], [place] | | | [facility] | [address] | [address] | | | TESTS | | | [...] - MARILYN | [address] | [place] | | | [facility] | [address] | [address] | | | TESTS | | | [...] + + + + + | [facility] | [address] | [place] [address] | | | SERVICES, CORE | BERTRAM [...] | 60 - 99 mg/dL | [facility] - | | | GLUCOSE, | [...] MARILYN | [address] | [place] | | | [facility] | [facility] | [address] | | | TESTS | | | [...] + + | Performing | Address | City/State/[facility]ode | Phone Number | | Organization | | | | + + + + + | [facility] | [address] | [place] [address] | | | ARON, [facility] | [address] | | | + [...] [facility] | [address] | [place] [address] | | | SERVICES, CORE | PARK [...] + + + + + | [facility] | [address] | [place] [address] | | | JANELL SHARP | BERTRAM [...] + + + + + | [facility] | [address] | [place] [address] | | | SERVICES, CORE | BERTRAM [...] | 60 - 99 mg/dL | [facility] - | | | GLUCOSE, | [...] SANDERS | [address] | [place], [place] | | | [facility] | [address] | [address] | | | TESTS | | | [...] MAR[facility] | [address] | [place], [place] | | | [facility] | [address] | [address] | | | TESTS | | | [...] | + +---------+ + + | [facility] DEPARTMENT OF | | | | [...] Kirstie | | | | | | [place] | | | | + + + [...] [facility] | [address] | [place], [place] | | | [facility] | [address] | [address] | | | TESTS | | | [...] MARILYN | [address] | [place] | | | [facility] | [address] | [address] | | | TESTS | | | [...] [facility] | [address] | [place] [address] | | | SERVICES, SPECIAL | PARK [...] | [facility] | [address] | [place] [address] | | | SERVICES, SPECIAL | BERTRAM [...] [facility] | [address] | [place] [address] | | | SERVICES, SPECIAL | PARK [...] [facility] | [address] | [place] [address] | | | SERVICES, SPECIAL | PARK [...] [facility] | [address] | [place] [address] | | | SERVICES, CORE | PARK [...] | + + + + + | [facility] | [address] | [place] [address] | | | SERVICES, CORE | PARK [...] [facility] | [address] | [place] [address] | | | SERVICES, CORE | PARK [...] | + + + + + | [facility] | [address] | [place] [address] | | | SERVICES, JANELL | BERTRAM [...] MARILYN | [address] | [place], [place] | | | [facility] | [address] | [address] | | | TESTS | | | [...] + + + + + | [facility] | [address] | [place] [address] | | | SERVICES, CORE | BERTRAM [...] | 60 - 99 mg/dL | [facility] - | | | GLUCOSE, | [...] SANDERS | [address] | [place], [place] | | | [facility] | [facility] | [address] | | | TESTS | | | [...] MAR[facility] | [address] | [place], [place] | | | [facility] | [address] | [address] | | | TESTS | | | [...] Davina | | | | | | Collin | | | | + + + [...] [facility] | [address] | [place], [place] | | | [facility] | [address] | [address] | | | TESTS | | | [...] + + + + | PRODUCT | [id number] | | [facility] | | | UNIT [...] + + + + | BLOOD | 96035 | | [facility] | | | PRODUCT [...] + + + + | [facility] | [address] | [place] [address] | | | PATHOLOGY | [address] [...] + + + + | PRODUCT | [id number] | | [facility] | | | UNIT [...] + + + + | BLOOD | 98792 | | [facility] | | | PRODUCT [...] DEPARTMENT OF | [address] | [place] [address] | | | PATHOLOGY | [address] [...] [facility] | [address] | [place] [address] | | | SERVICES, CORE | PARK [...] [facility] | [address] | [place] | | | [facility] | [address] | [address] | | | TESTS | | | [...] + + + | [facility] | [address] | [place], [place] | | | [facility] | [address] | [address] | | | TESTS | | | [...] [facility] | [address] | [place] [address] | | | SERVICES, CORE | PARK [...] [facility] | [address] | [place] [address] | | | SERVICES, CORE | PARK [...] | + + + + + | [facility] | [address] | [place] [address] | | | SERVICES, CORE | BERTRAM [...] if | | | | | | [id number] >400: | | | | | | [...] + + | Performing | Address | City/State/[facility]ercode | Phone Number | | Organization | | | | + + + + + | [facility] | [address] | [place] [address] | | | [place] | | | [...] [facility] | [address] | [place] [address] | | | SERVICES, CORE | PARK [...] [facility] | [address] | [place] [address] | | | SERVICES, CORE | PARK [...] | + + + + + | [facility] | [address] | [place] [address] | | | SERVICES, CORE | PARK [...] + | [facility] - | [address] | [place] [address] | | | [place] | | | | + + + [...] - [facility] | [address] | [place] | | | [facility] | [facility] | [address] | | | TESTS | | | [...] [facility] | [address] | [place] [address] | | | SERVICES, CORE | PARK [...] [facility] | [address] | [place] [address] | | | ARON, JANELL | BERTRAM [...] | 60 - 99 mg/dL | [facility] - | | | GLUCOSE, | [...] DAVIDAM | [address] | [place], [place] | | | [facility] | [address] | [address] | | | TESTS | | | [...] | + + + + + | [facility] | [address] | [place] [address] | | | SERVICES, CORE | PARK [...] gas. | | | | | | Omfytd-sm-ppynsp left | | | | | | [...] | + +---------+ + + | [facility] DEPARTMENT OF | | | | [...] [facility] | [address] | [place], [place] | | | [facility] | [address] | [address] | | | TESTS | | | [...] % | [facility] | | | | [employer],[address] | | REG UNIV | | | | Jarett Card, [facility] [place] | | PTH - [facility] | | | | [id number] | | | | | | [phone].[employer]uplab. | | | | | | Kaitlin [...] [facility] | [address] | [place], [place] | | | UNIV PTH - [facility] | | [address] | | + + + + + [...] | + + + + + | [facility] | [address] | [place] [address] | | | SERVICES, JANELL | BERTRAM [...] [facility] | [address] | [place] [address] | | | JANELL SHARP | BERTRAM [...] [facility] | [address] | [place] | | | [facility] | [address] | [address] | | | TESTS | | | [...] [facility] | [address] | [place] [address] | | | SERVICES, CORE | PARK [...] + + + + + | [facility] | [address] | [place] [address] | | | SERVICES, CORE | BERTRAM [...] + + | Performing | Address | City/State/[facility] Cent[facility]ode | Phone Number | | Organization | | | | + + + + + | [facility] | [address] | [place] | | | KAILEY MOORE | [facility] | [address] | | | TESTS | | | [...] + + + + + | [facility] | [address] | [place] [address] | | | JANELL SHARP | BERTRAM [...] [facility] | [address] | [place] [address] | | | SERVICES, JANELL | PARK [...] + + + + + | [facility] | [address] | [place] [address] | | | JANELL SHARP | BERTRAM [...] [facility] | [address] | [place] [address] | | | SERVICES, JANELL | BERTRAM [...] [facility] | [address] | [place] [address] | | | SERVICES, CORE | PARK [...] [facility] | [address] | [place] [address] | | | SERVICES, CORE | PARK [...] | | | | Final | | [place] | | | | CULTURE RESULT:No growth [...] | + + + + + | [facility] | [address] | [place] [address] | | | [place] | | | | + + + [...] | | | Final CULTURE | | [place] | | | | RESULT:Salmonella, | | [...] days. | AIRPORT - | | | [place] | + + + + + + + + | Performing | Address | City/State/Zipcode | Phone Number | | Organization | | | | + + + + + | [facility] | [address] | [place] [address] | | | [place] | | | [...] | + + + + + | [facility] | [address] | [place] [address] | | | SERVICES, CORE | BERTRAM [...] [facility] | [address] | [place], [place] | | | [facility] | [address] | [address] | | | TESTS | | | [...] view image for the detailed interpretation from Leftronic results. | CARDIOLOGY | + + + + + + + + | Performing | Address | City/State/Zipcode | Phone Number | | Organization | | | | + + + + + | [facility] | [address] | [place], [place] | | | CARDIOLOGY | [address] | [address] | | + + + + + [...] | + +---------+ + + | [facility] DEPARTMENT OF | | | | [...] + + + + + | [facility] | [address] | [place] [address] | | | SERVICES, CORE | PARK [...] | [facility] | [address] | [place] [address] | | | SERVICES, CORE | BERTRAM [...] | + + + + + | [facility] | [address] | [place] [address] | | | SERVICES, CORE | BERTRAM [...] + + + + + | [facility] | [address] | [place] [address] | | | SERVICES, CORE | BERTRAM [...] | 60 - 99 mg/dL | [facility] - | | | GLUCOSE, | [...] [facility] | [address] | [place], [place] | | | [facility] | [address] | [address] | | | TESTS | | | [...] [facility] | [address] | [place] [address] | | | SERVICES, CORE | PARK [...] LABORATORY | [address] | [place] [address] | | | SERVICES, CORE | PARK [...] | + + + + + | [facility] | [address] | [place] [address] | | | SERVICES, | [address] [...] [facility] | [address] | [place] [address] | | | SERVICES, | [address] [...] | 30.3 | 26.0 - 36.0 | [facility] | | | | | sec. [...] [facility] | [address] | [place] [address] | | | JANELL SHARP | BERTRAM [...] [facility] | [address] | [place] [address] | | | SERVICES, CORE | PARK [...] | + + + + + | [facility] | [address] | [place] [address] | | | SERVICES, CORE | BERTRAM [...] | | | | First dose on [facility] 03/23/12 at | | | | [...] | | | dose, First dose on [facility] 03/30/12 | | | | | [...] | | | Hours, ONCE, 1 dose, [facility] 03/15/12 | | | | | | [...] | | | Hours, ONCE, 1 dose, [facility] 03/16/12 | | | | | [...] | | | | | 1115, Until [facility] 03/30/12 at 1055, | | | [...] | | | oral, ONCE, 1 dose, [facility] 03/30/12 | | PM PST | [...] | | | oral, ONCE, 1 dose, [facility] 03/17/12 | | PM PST | | | | | at 1600 | | | | | | + +-------+ +--------+---+---+ +---+---+ | | | +---+---+ + +-------+ +--------+---+---+ | potassium chloride (aka | Given | 03/19/20 | 40 mEq | | | | KLOR-CON) packet 40 mEq 40 mEq, | | 12 3:14 | | | | | oral, ONCE, 1 dose, [place] 03/19/12 | | PM PST | | | | | at 1430 | | | | | | + +-------+ +--------+---+---+ +---+---+ | | | +---+---+ + +-------+ +--------+---+---+ | potassium chloride (aka | Given | 03/26/20 | 40 mEq | | | | CAROL-KENISHA) packet 40 mEq 40 mEq, | | 12 12:06 | | | | | oral, ONCE, 1 dose, [place] 03/26/12 | | PM PST | | | | | at 1000 | | | | | | + +-------+ +--------+---+---+ +---+---+ | | | +---+---+ + +---------+ +--------+--------+---+ | potassium chloride IV 40 mEq | New Bag | 03/12/20 | 40 mEq | mL/hr | | | 40 mEq, intravenous, ONCE, 1 | | 12 8:32 | | | | | dose, [place] 03/12/12 at 2100 | | PM PST | | | | + +---------+ +--------+--------+---+ +---+---+ | | | +---+---+ + +---------+ +--------+--------+---+ | potassium chloride IV 40 mEq | New Bag | 03/17/20 | 40 mEq | mL/hr | | | 40 mEq, intravenous, ONCE, 1 | | 12 7:07 | | | | | dose, [facility] 03/17/12 at 1630 | | PM PST [...] | | | | | NEEDED, Starting [facility] 03/16/12 at | | | | | | | 0815, Until [place] 03/19/12 at 0713, | | | | [...] 12 10:58 | | | | | [facility] 03/30/12 at 2300 | | PM [...] | | | | | modification) on [facility] 03/23/12 at | | | | [...]
--- OUTSIDE RECORDS SUMMARY | ~2019-11-05 | XMS | Encounter Summary ---
Demographics + + + | Address | [address] | | | [place] [address] | + + + | Home Phone | | + + + | Preferred Language | Unknown | + + + | Marital Status | | + + + | Yarsani Affiliation | NRP | + + + | Race | White | + + + | Ethnic Group | Not or | + + + Author + + + | Author | [facility] | + + + | Organization | [facility] | + + + | Address | Unknown | + + + | Phone | Unavailable | + + + Support + + + + + | Name | Relationship | Address | Phone | + + + + + | Kole Willingham | [place] | [address] | | | | | [place], [place] | | | | | [address] | | + + + + + | Cami Sawyer | ECON | Unknown | | + + + + + Care Team Providers + +------+ + | Care Road Engineer Freight Name | Role | Phone | + [...] | | fistula | Kristen Rubio | [facility] | | | | | Procedures | [place], [place] | [facility] and | | | | | CONSULT TO | [address] | Healing, | | | | | GI PROCEDURE | Phone: | [address] | | | | | UNIT: | [phone] | [place], [place] | | | | | FLEXIBLE | Fax: | [address] | | | | | SIGMOIDOSCOP | [phone] | Phone: | | | | | Y PA | | [phone] | | | | | SIGMOIDOSCOP | | Fax: | | | | | Y,BIOPSY | | [phone] | +--------+--------+ + + + + Reason [...] tests | | 2016 | | [facility] [place] [id number] | [phone] [facility] | | | | | [address] [facility] | Kristen Rubio [place], | | | | | [facility] and | [place] [address] | | | | | [facility] | [phone] | | | | | [place], [place] | | | | | | [address] | | | | | | [phone] | | | +--------+ + + + [...]
--- OUTSIDE RECORDS SUMMARY | ~2019-11-05 | XMS | Encounter Summary ---
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 | Role | Phone | + +------+ + PCP | Unavailable | + +------+ + Encounter Details +--------+ + + + + | Date | Type | Department | Care Team | Description | +--------+ + + + + | 11/05/ | Hospital | [facility] | Gina Haines DO | Chest pain, | | 2015 - | Encounter | [facility] | [address] | unspecified chest | | | | CARE [address]LO[address] | [place] [address] | pain type; | | 11/10/ | | [address] | [phone] | Pyelonephritis; | | 2014 | | [place], [place] | | Acute nonintractable | | | | [address] | | headache, | | | | [phone] | | unspecified headache | | | [...] Service: Hospitalist Author Type: Physician Filed: 11/12/14 0108 Date of Service: 11/10/14 100 Status: Signed Ceramic Engineer: Rosmery Oden MD (Physician) [facility] Service: Hospitalist Discharge Summary Date of Admission: 11/05/2014 Date of Discharge: 11/10/2014, 2 PM Discharge Provider: ROSMERY ODEN MD Treatment Team: Consulting Physician: Raphael Turner DO Admitting Provider: Gina Haines DO Discharge Diagnoses: Principal Problem (Resolved): Sepsis(995.91) ([facility]) Active Problems: Hypertension Immunocompromised state (HCC) Crohn [...] who was admitted as a transfer from [facility] due to sepsis and altered mental [...] Vancomycin and she was then transferred to [facility]. Upon arr ival she was febrile [...] primary care physician about referral to a Gi Tech at [facility] for further evaluation of Chohn's Disease. [...] Tolerated Follow up: Neel Fernandes MD [address] [place] [id number] In 4 days As scheduled. Medication List [...] documented as of this encounter Progress Notes Rosmery Oden MD - 11/09/2014 2:46 PM PDT Progress Notes by Rosmery Oden MD at 11/09/14 1440 Author: Rosmery Oden MD Service: Hospitalist Author Type: Physician Filed: 11/09/14 6320 Date of Service: 11/09/141445 Status: Signed Ceramic Engineer: Rosmery Oden MD (Physician) [facility] Service: Hospitalist Progress Note Mackenzie Willingham 59 y.o. [id number] -[id number] female Neel Vega [place] (General) Hospital Day: LOS: 4 days SUBJECTIVE Patient Summary: Patient is a 59 year old female with past medical history of COPD, Crohn's Disease, HTN, Hi story of Spelnic Vein Thrombosis and Immunosuppression due to Steroids and Remicade who was admitted as a transfer from [facility] due to sepsis and altered mental [...] and Vancomycin. She was then transferred to [facility], upon arriv al she was febrile [...] or aneurysm. LEM LIST Principal Problem: Sepsis(995.91) ([facility]) Active Problems: Diarrhea Urinary tract infection, site not specified Debility, unspecified Hypertension Demyelinating changes in brain ([facility]) Immunocompromised state ([facility]) ASSESSMENT & PLAN Sepsis: Stable and improved [...] (none) Author Type: Physical Therapist Filed: 11/09/14 1516 Date of Service: 11/09/14 1415 Status: Signed Ceramic Engineer: Christel Camacho PT (Physical Therapist) 11/09/14 1415 PT Last Visit PT Received On 11/09/14 Reason for Treatment Deconditioning;Other (comment) (acute encephalopathy, debrile, chronic diarrhea-Crohn's dx ) Requires PT Follow Up Awaiting tx order Follow up PT Only? No Focus for Next Treatment Stair Training (standing HEP ) PT Eval/Reassessment Date 11/09/14 Assistance Required 1 person Transportation Aide Needed No Precautions Other Precautions 2falls in [...] amb w/min-SBA 200+ft w/o AD. Pt. scored on Tinetti w/o AD, indicating at risk for falls. Pt. verb. she was going to OP PT in [place]. She indicates her will be home for [...] Barriers to Discharge Physical Deficits Impacting Functional [place] PT Ready for Discharge Yes (pt.'s will be home until school starts ) onver roshan Transaction, Provider Unknown - 11/09/2014 2:13 PM PDT Nurse Progress Note by Eliza Cheng RN at 11/09/14 7503 Author: Eliza Cheng RN Service: (none) Author Type: Registered Nurse Filed: 11/09/14 1411 Date of Service: 11/09/141412 Status: Signed Ceramic Engineer: Eliza Cheng, RN (Registered Nurse) Per pt: Flagyl does [...] f lagyl even while at the hospital. uEv padilla MD - 11/09/2014 8:57 AM PDT Progress Notes by Ev Mas MD at 11/09/14856 Author: Ev Mas MD Service: Infectious Disease Author Type: Physician Filed: 11/09/14 1442 Date of Service: 11/09/14856 Status: Signed Ceramic Engineer: Ev Mas MD (Physician) [facility] Service: Infectious Disease Progress Note Hospital Day: [...] who was admitted as a transfer from [facility] due to sepsis and a ltered [...] Vancomycin. She was then transferr ed to [facility], upon arrival she was febrile and [...] normal glucose. PROBLEM LIST Principal Problem: Sepsis(995.91) ([facility]) Active Problems: Diarrhea Encephalopathy acute Delirium Urinary [...] Progress Notes by Rosmery Oden MD at 11/08/14 08 Author: Rosmery Oden MD Service: Hospitalist Author Type: Physician Filed: 11/08/14 1725 Date of Service: 11/08/14841 Status: Signed Ceramic Engineer: Rosmery Oden MD (Physician) [facility] Service: Hospitalist Progress Note Mackenzie Willingham 59 y.o. [id number] -1 female [facility]and[facility] (General) Hospital Day: LOS: 3 days SUBJECTIVE Patient Summary: Patient is a 59 year old female with past medical history of COPD, Crohn's Disease, HTN, Hi story of Spelnic Vein Thrombosis and Immunosuppression due to Steroids and Remicade who was admitted as a transfer from [facility] due to sepsis and altered mental [...] and Vancomycin. She was then transferred to [facility], upon arriv al she was febrile [...] or aneurysm. 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 Hyponatremia [...] their q uestions. ROSMERY ODEN MD 11/08/2014 Bruna, Ev Barrett MD - 11/08/2014 8:07 AM PDT Progress Notes by Ev Mas MD at 07/31/15 0807 Author: Ev Mas MD Service: Infectious Disease Author Type: Physician Filed: 11/08/14 1500 Date of Service: 11/08/14806 Status: Signed Ceramic Engineer: Ev Mas MD (Physician) [facility] Service: Infectious Disease Progress Note Hospital Day: [...] who was admitted as a transfer from [facility] due to sepsis and a ltered [...] Vancomycin. She was then transferr ed to [facility], upon arrival she was febrile and [...] Progress Note by Anthony Correa at 11/07/14 110 Author: Anthony Correa Service: Wound/Ostomy Care Author Type: Nurse Documentation Improvement Specialist Filed: 11/07/149 Date of Service: 11/07/141106 Status: Signed Ceramic Engineer: Anthony Correa (Nurse Documentation Improvement Specialist) Patient seen today for low Marck score. [...] 1719 Date of Service: 11/07/14908 Status: Addendum Ceramic Engineer: Rosmery Oden MD (Physician) Related Notes: Original Note by Rosmery Oden MD (Physician) filed at 11/07/14 17 18 [facility] Service: Hospitalist Progress Note Mackenzie Willingham 59 y.o. [id number] -[id number] female [facility]and[facility] (General) Hospital Day: LOS: 2 days SUBJECTIVE Patient Summary: Patient is a 59 year old female with past medical history of COPD, Crohn's Disease, HTN, Hi story of Spelnic Vein Thrombosis and Immunosuppression due to Steroids and Remicade who was admitted as a transfer from [facility] due to sepsis and altered mental [...] and Vancomycin. She was then transferred to [facility], upon arriv al she was febrile [...] Table: I/O last 3 completed shifts: In: 7 [I.V.:2157] Out: 950 [Urine:950] Weight change: -0.001 kg [...] their q uestions. ROSMERY ODEN MD 11/07/2014 orantoine, Nena Walker O - 11/07/2014 8:09 AM PDT Progress Notes by Raphael Turner DO at 11/07/14 0809 Author: Raphael Turner DO Service: (none) Author Type: Physician Filed: 11/07/14 0578 Date of Service: 11/07/14 0809 Status: Signed Ceramic Engineer: Raphael Turner DO (Physician) [facility] Service: Infectious Disease Progress Note Hospital Day: [...] normal glucose. PROBLEM LIST Principal Problem: Sepsis(995.91) ([facility]) Active Problems: Diarrhea Encephalopathy acute Delirium Urinary [...] Physician Filed: 11/06/14 1700 Date of Service: 11/06/14 0845 Status: Addendum Ceramic Engineer: Rosmery Oden MD (Physician) Related Notes: Original Note by Rosmery Oden MD (Physician) filed at 11/06/14 16 57 [facility] Service: Hospitalist Progress Note Mackenzie Willingham 59 y.o. [id number] 2037/2037- female [facility] (General) Hospital Day: LOS: 1 day SUBJECTIVE Patient Summary: Patient is a 59 year old female with past medical history of COPD, Crohn's Disease, HTN, Hi story of Spelnic Vein Thrombosis and Immunosuppression due to Steroids and Remicade who was admitted as a transfer from [facility] due to sepsis and altered mental status. Apparently, she developed nausea, vomiting and diarrhea for four days and was very lethargic . Her has been giving all her medications including narcotics Oxycodone Morphine sul fate. Her labs there showed leukocytosis and findings of UTI. She was started IV fluids and given one dose of Zosyn, Flagyl and Vancomycin. 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 Will monitor CBC and continue [...] AM PDT Progress Notes by Rosita Bertrand [facility] at 11/06/14543 Author: Rosita Bertrand RPH Service: (none) Author Type: Pharmacist Filed: 11/06/1444 Date of Service: 11/06/14543 Status: Signed Ceramic Engineer: Rosita Bertrand RPH (Pharmacist) Clinical Pharmacy Note: Renal Monitoring Height: 175.3 cm Weight: 68 kg CREATININE: 0.76 (11/05/142) Estimated creatinine clearance - 83.3 mL/min Pharmacy dosing for renal function per Dr. Haines. Currently there are no medications needing to be adjusted. Pharmacy will continue to monito r for changes in medication orders and in renal function and adjust accordingly per protocol . Rosita Bertrand PharmD 11/06/2014 5:44 AM onver roshan Kapooraction, Provider Unknown - 11/06/2014 4:46 AM PDT Nurse Progress Note by Livia Deshpande RN at 11/06/14445 Author: Livia Deshpande RN Service: (none) Author Type: Registered Nurse Filed: 11/06/14610 Date of Service: 11/06/14445 Status: Signed Ceramic Engineer: Livia Deshpande RN (Registered Nurse) Called pts husbands phone number to complete the MRI form. Left a message with him to call [facility]. docume nted in this encounter H&P Notes Gina Haines DO - 11/05/2014 11:53 PM PDTFormatting of this note might be different from t velvet original. H&P by Gina Haines DO at 11/05/14 0525 Author: Gina Haines DO Service: Hospitalist Author Type: Physician Filed: 11/06/14440 Date of Service: 11/05/142352 Status: Signed Ceramic Engineer: Gina Haines DO (Physician) [facility] Service: Hospitalist Admission History & Physical Date of Admission: 11/05/2014 Primary Care Physician: Neel Fernandes History Obtained From: Mostly , quality of the history poor. CHIEF COMPLAINT: Altered mental status, fever and emesis. Transferred from [facility] w ith an elevated white blood cell count 26.4, ESR 27 and possible infiltrate in the right upp er lobe. HISTORY OF PRESENT ILLNESS The patient is a 59 y.o. 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 CC of Vomiting and diarrhea x 4 since last night. No blood in either stool or emesis. Patient denies chest pain and SOB. Diarrhea occu rs if she does not take narcotics. Smokes 1 PPD. Most history given by as patient ke ep falling asleep. Per , for the last 3 days, patient has been lethargic, keep falling asleep and has n ot been able to finish her meals. has been given all her pills whenever she woke up for her to take then ( 6 pills of oxycodone 7.5 mg and 5 pills morphine sulfate 15 mg ) She also c/o of CHANDLER since yesterday, global, not associated with neck pain,, unable to keep any specifics. Patient reports chronic cataracts and poor vision. Patient keep asking for Phenergan and dilaudid, even though fall asleep ER findings: Leukocytosis, thrombocytosis, mild hyponatremia. [facility] Incontinent of urine in his stool ER treatment: Medications at [facility] morphine 20+ mg total, 2 L normal saline, Zosyn , Flagyl, Vancomycin and IV Phenergan. At [facility] Tylenol and Zofran. REVIEW OF SYSTEMS unable to obtain a full review of system due to mentation Past Medical History Diagnosis Date COPD (chronic [...] Procedure: ESOPHAGOGASTRODUODENOSCOPY; Surgeon: Bony Petty MD; Location: [facility] BEDSIDE PROCEDURE; Service: Gastroenterology; Laterality: N/A; Laparotomy N/A 04/23/2014 Procedure: EXPLORATION - LAPAROTOMY; Surgeon: Bogdan Moser DO; Location: [facility] MAIN OR; Service: General; Laterality: N/A; Splenectomy, total N/A 04/23/2014 Procedure: SPLENECTOMY; Surgeon: Bogdan Moser DO; Location: [facility] MAIN OR; Service: General; Laterality: N/A; Allergies Allergen Reactions Demerol [Meperidine] Other (See Comments) Unknown Erythromycin Other (See Comments) unknown Levofloxacin Other (See Comments) tendinitis Reglan [Metoclopramide] Agitation Unknown Penicillins Nausea and Vomiting Prior to Admission medications Medication Sig Start Date End Date Taking? Authorizing Provider morphine (MSIR) 15 MG tablet Take 15 mg by mouth 5 (five) times daily. PRN Yes Historical Provider oxyCODONE-acetaminophen (PERCOCET) 7.5-325 MG per tablet Take 1-2 tablets by mouth every 8 (eight) hours as needed for Pain. Yes Historical Provider ciprofloxacin (CIPRO) 500 MG tablet Take 500 mg by mouth 2 (two) times daily. no Historic al Provider cyanocobalamin 1000 MCG/ML injection Inject 1,000 mcg into the muscle every 30 (thirty) day s. Historical Provider inFLIXimab (REMICADE) 100 MG injection Inject 375 mg into the vein. Every 6 weeks Histor ical Provider lisinopril (ZESTRIL) 20 MG tablet Take 20 mg by mouth daily. Historical Provider LORazepam (ATIVAN) 0.5 MG tablet Take 0.5 mg by mouth every 6 (six) hours as needed for Anx iety. Historical Provider metoprolol (LOPRESSOR) 25 MG tablet Take 37.5 mg by mouth 2 (two) times daily. Historica l Provider metroNIDAZOLE (FLAGYL) 500 MG tablet Take 500 mg by mouth 3 (three) times daily. Histori lien Provider omeprazole (PRILOSEC) 40 MG capsule Take 40 mg by mouth 2 (two) times daily. Historical Provider potassium chloride SA (K-DUR,KLOR-CON) 20 MEQ tablet Take 20 mEq by mouth 2 (two) times ivan ly. Historical Provider potassium chloride SA (KLOR-CON M15) 15 MEQ tablet Take 15 mEq by mouth 2 (two) times daily . Historical Provider predniSONE (DELTASONE) 10 MG tablet Take 15 mg by mouth daily. Historical Provider promethazine (PHENERGAN) 25 MG tablet Take 25 mg by mouth every 6 (six) hours as needed for Nausea. Historical Provider tamsulosin (FLOMAX) 0.4 MG capsule Take 0.4 mg by mouth After dinner. Administer 30 minute s after the same meal each day. Capsules should be swallowed whole; do not crush, chew, or o pen Historical Provider warfarin (COUMADIN) 6 MG tablet Take 6 mg by mouth daily. Historical Provider Family history: Not obtainable secondary to mentation History Social History Marital Status: Spouse Name: [...] History Narrative PHYSICAL EXAM Vital Signs: BP 168/74 | Pulse 68 | Temp(Src) 98.7 F (37.1 C) (Oral) | Resp 16 | Ht 1.753 m (5' 9") | Wt 68.04 kg (150 lb) | BMI 22.14 kg/m2 | SpO2 95% General Appearance: appears sedated, answering questions when aroused but fall asleep n o distress, appears stated age. Head: Normocephalic, without obvious abnormality, atraumatic Eyes: PERRL, conjunctiva/corneas clear, EOM's intact. Ears: Normal external ear canals, no otorrhea Nose: Nares normal, no drainage or sinus tenderness Throat: Lips, mucosa, and tongue dry; gums normal Neck: No nuchal rigidity, symmetrical, trachea; no carotid bruit or JVD Back: Symmetric, no curvature, ROM normal, no CVA tenderness Lungs: decrease breath sounds bilaterally, respirations unlabored Chest Wall: No tenderness or deformity Heart: Regular rate and rhythm, S1 and S2 normal, no murmur, rub or gallop Abdomen: Soft, non-tender, bowel sounds active all four quadrants, no masses, no organo megaly Genitalia: Wolf catheter Rectal: Deferred Extremities: Upper extremities no clubbing/ cyanosis/ erythema Lower extremities atraum atic, no cyanosis or edema Pulses: 2+ and symmetric all extremities Skin: Skin warm, texture and turgor normal, no rashes or lesions Lymph nodes: No gross lymphadenopathy. Neurologic: Psychiatric: CNII-XII intact, M/S 3/5+ x 4, sensation normal Affect/ mood abnormal, behavior and judgement abnormal DATA Results Procedure Component Value Units Date/Time Cardiac Panel [[id number]] (Abnormal) Collected: 11/05/14 2342 WBC 24.99 (H) K/uL Updated: 11/06/14 0030 RBC 4.36 M/uL HGB 13.1 g/dL HCT 40.2 % MCV 92.3 fl MCH 30.2 pg MCHC 32.7 g/dL RDW SD 59.5 (H) fl PLT 424 (H) K/uL MPV 7.3 fl DIFF TYPE AUTOMATED NEUTROPHILS 69.52 % LYMPHOCYTES 17.38 % MONOCYTES 11.50 % EOSINOPHILS 0.84 % BASOPHILS 0.76 % NEUTROPHILS ABS 17.37 (H) K/uL LYMPHOCYTES ABS 4.34 (H) K/uL MONOCYTES ABS 2.87 (H) K/uL EOSINOPHILS ABS 0.21 K/uL BASOPHILS ABS 0.19 (H) K/uL MORPHOLOGY 1+ SODIUM 133 (L) mmol/L POTASSIUM 3.6 mmol/L CHLORIDE 95 (L) mmol/L CO2 28 mmol/L ANION GAP AGAP 13 mmol/L GLUCOSE 123 (H) mg/dL BUN 7 (L) mg/dL CREATININE 0.76 mg/dL BUN/CREAT 10 CALCIUM 8.2 (L) mg/dL TOTAL PROTEIN 6.6 g/dL Albumin 2.7 (L) g/dL GLOBULIN 4.0 g/dL A/G 0.7 (L) TBIL 0.7 mg/dL ALK PHOS 251 (H) U/L AST 33 U/L ALT 36 U/L EGFR >60 mL/min/1.73m2 CPK 50 U/L INR 1.4 APTT 33 (H) seconds MMB 0.6 ng/mL CK-MB Index 1.2 Recent Labs Lab 11/05/14 2342 CKTOTAL 50 CKMBINDEX 1.2 ABG: Lab Results Component Value Date POCPH 7.365 11/05/2014 POCPCO 50* 11/05/2014 POCPO2 81 11/05/2014 POCHCO 28* 11/05/2014 POCTCO2 30* 11/05/2014 POCBD 1 04/23/2014 BEART 3 11/05/2014 POCSO2 95 11/05/2014 POCCMT Tidal Volume = 460 04/23/2014 IMAGING: Ct Head Non-contrast 11/05/[address] of the brain without contrast. : Sinus Tach 113, non specific T wave abnormality, VR 113. Interpreted by me, formal re port to come. ASSESSMENTS AND PLAN Principal Problem: Encephalopathy acute: unclear etiology but likely multifactorial chronic narcotics while sedated, febrile illness, dehydration and headache. We will try to decrease narcotics, hydra te aggressively and to rule out possible hemorrhage will order an MRI/MRA brain. Fall and as piration precautions. Meningismus or nuchal rigidity, doubt meningitis at this time. Continu ous pulse ox and telemetry. Active Problems: Febrile illness, acute and Leucocytosis : Unclear etiology, possibly secondary to C. dif ficile and/or other infection process. We will repeat blood cultures and a urinalysis. Will wait for results. Given Zosyn and Vancomycin at [facility], would recommend morning hospi talist to contact infectious diseases for further recommendations. Diarrhea: hx of crohn's, chronic diarrhea if no narcotics administered and hx of recent p ast history of UTI tx with Cipro. No diarrhea while in the ER . His stool cultures and C. d ifficile order. 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 sub therapeutic. Continue c oumadin and add heparin for DVT prophylaxis until INR 2. Pharmacy will be following. AAS ord ered and pending. Chronic steroid use: secondary to Crohn's resume prednisone 15 mg. Morning labs, GI and DVT prophylaxis Other recommendations for management of this patient will be dependent upon the patient's c linical course. Admit to inpatient. Intervention requiring inpatient services , IVF therapy, IV antibiotics, following bloodcul tures antibiotic therapy, serial lab work cbc to monitor for resolution or worsening among o ther treatments High risk of deterioration due to comorbidities High risk of deterioration due to nature of admitting diagnoses. Plan will also include management of chronic medical conditions Dictation software, [employer], used which may contain error for similar sounding words even af ter review. Personal communication requested for any clarification. Gina Haines DO 11/06/2014 12:41 AM documented in this enco unter Procedure Notes Gregg Eubanks ARNP - 11/06/2014 3:30 PM PDTFormatting of this note might be different fr om the original. Procedures by JENARO Alexis at 11/06/14 1530 Author: JENARO Alexis Service: Radiology Author Type: Advanced Registered Nurse Sunshine moffett Filed: 11/06/14 1531 Date of Service: 11/06/14 1530 Status: Signed Ceramic Engineer: JENARO Alexis (Advanced Registered Nurse Practitioner) Pre-procedure Diagnoses: 1. Altered mental status, unspecified altered mental status type [780.97] Post-procedure Diagnoses: 1. Altered mental status, unspecified altered mental status type [780.97] Procedures: 1. LUMBAR PUNCTURE [PRO88 (Custom)] Diagnostic lumbar puncture under fluoroscopic guidance performed 18 mL of clear, colorless fluid obtained Opening pressure: 16 cmH2O Fluid sent to lab for indicating testing Patient tolerated well, no immediate post procedure complications encountered. See dictation for full details JENARO Alexis 11/06/2014 3:31 PM documented in this encounter Consult Notes Raphael Turner DO - 11/06/2014 12:52 PM PDT Consult* by Raphael Turner DO at 11/06/14 1252 Author: Raphael Turner DO Service: (none) Author Type: Physician Filed: 11/06/14 1401 Date of Service: 11/06/14 1252 Status: Signed Ceramic Engineer: Raphael Turner DO (Physician) [facility] Service: Infectious Disease Initial Consult Note Date of Admission: 11/05/2014 Reason for Consultation: Fever, vomiting and diarrhea, immunocompromised patient Requesting Physician: Denise Oden History Obtained From: patient, chart review CHIEF COMPLAINT: Nausea and vomiting HISTORY OF PRESENT ILLNESS From Dr. Haines's H+P: "The patient is a 59 y.o. 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 CC of Vomiting and diarrhea x 4 since last night. No blood in either stool or emesis. Patient denies chest pain and SOB. Diarrhea occurs if she does not take narcotics. Smokes 1 PPD. Most history given b y as patient keep falling asleep. Per , for the last 3 days, patient has been lethargic, keep falling asleep and has n ot been able to finish her meals. has been given all her pills whenever she woke up for her to take then ( 6 pills of oxycodone 7.5 mg and 5 pills morphine sulfate 15 mg ) She also c/o of CHANDLER since yesterday, global, not associated with neck pain,, unable to keep any specifics. Patient reports chronic cataracts and poor vision." The patient had been given Meropenem, Flagyl and vancomycin at the outside hospital prior t o transfer. On admission, the patient was continued on Flagyl for coverage of C. difficile, but no other antibiotics have been ordered so far. The patient is properly concerned about a severe headache with nausea. She has not been vomiting. She notes that she has some diarrhe a when the illness first began, but not since that time. She has not had any diarrhea today. She denies abdominal pain. Her symptoms do not remind her of a Crohn's disease flare. 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 PRN 11/04/2014 at Unknown time oxyCODONE-acetaminophen (PERCOCET) 7.5-325 MG per tablet Take 1-2 tablets by mouth ever y 8 (eight) hours as needed for Pain. 11/04/2014 at Unknown time ciprofloxacin (CIPRO) 500 MG tablet Take 500 mg by mouth 2 (two) times daily. Unknown at Unknown time cyanocobalamin 1000 MCG/ML injection Inject 1,000 mcg into the muscle every 30 (thirty) days. inFLIXimab (REMICADE) 100 MG injection Inject 375 mg into the vein. Every 6 weeks lisinopril (ZESTRIL) 20 MG tablet Take 20 mg by mouth daily. Unknown at Unknown time LORazepam (ATIVAN) 0.5 MG tablet Take 0.5 mg by mouth every 6 (six) hours as needed for Anxiety. Unknown at Unknown time metoprolol (LOPRESSOR) 25 MG tablet Take 37.5 mg by mouth 2 (two) times daily. Unknow n at Unknown time metroNIDAZOLE (FLAGYL) 500 MG tablet Take 500 mg by mouth 3 (three) times daily. Unkn own at Unknown time omeprazole (PRILOSEC) 40 MG capsule Take 40 mg by mouth 2 (two) times daily. Unknown at Unknown time potassium chloride SA (K-DUR,KLOR-CON) 20 MEQ tablet Take 20 mEq by mouth 2 (two) times daily. potassium chloride SA (KLOR-CON M15) 15 MEQ tablet Take 15 mEq by mouth 2 (two) times d aily. predniSONE (DELTASONE) 10 MG tablet Take 15 mg by mouth daily. Unknown at Unknown erin e promethazine (PHENERGAN) 25 MG tablet Take 25 mg by mouth every 6 (six) hours as needed for Nausea. Unknown at Unknown time tamsulosin (FLOMAX) 0.4 MG capsule Take 0.4 mg by mouth After dinner. Administer 30 mi nutes after the same meal each day. Capsules should be swallowed whole; do not crush, chew, or open Unknown at Unknown time warfarin (COUMADIN) 6 MG tablet Take 6 mg by mouth daily. Unknown at Unknown time Scheduled Medications acetaminophen 1,000 mg Oral Once famotidine 20 mg Oral BID Or famotidine 20 mg Intravenous BID heparin (porcine) 5000 unit/0.5mL 5,000 Units Subcutaneous Q12H metronidazole 500 mg Intravenous Q8H predniSONE 15 mg Oral Daily with breakfast warfarin 6 mg Oral Daily Continuous Infusions sodium chloride (IV) 150 mL/hr at 11/06/14 1233 PRN Medications acetaminophen OR acetaminophen, morphine OR morphine OR morphine, ondansetron * *OR ondansetron, polyethylene glycol, zolpidem No family history on file. History Social [...] History Narrative PHYSICAL EXAM Vital Signs: BP 162/79 mmHg | Pulse 106 | Temp(Src) 98.8 F (37.1 C) (Oral) | Resp 16 | Ht 1.753 m (5 ' 9") | Wt 68.04 kg (150 lb) | BMI 22.14 kg/m2 | SpO2 93% Temp (24hrs), Av.2 F (37.3 C), Min:98.7 F (37.1 C), Max:100 F (37.8 C) Physical Exam Constitutional: The patient appears uncomfortable. Vital signs were reviewed as above Head: Normocephalic and atraumatic [...] CBC: Lab Results Component Value Date WBC 24.64* 11/06/2014 RBC 4.38 11/06/2014 HGB 13.1 11/06/2014 HGB 10.9* 04/23/2014 HCT 41.2 11/06/2014 HCT 32* 04/23/2014 MCV 94.0 11/06/2014 MCH 29.9 11/06/2014 MCHC 31.8* 11/06/2014 RDW 59.5* 11/06/2014 PLT 436* 11/06/2014 MPV 8.2 11/06/2014 DIFFTYPE MANUAL 11/06/2014 CMP: Lab Results Component Value Date NA 128* 11/06/2014 K 3.5 11/06/2014 CL 95* 11/06/2014 CO2 25 11/06/2014 ANIONGAP 12 11/06/2014 GLUF 120* 11/06/2014 BUN 8 11/06/2014 CREATININE 0.45* 11/06/2014 BCR 18 11/06/2014 CA 8.7 11/06/2014 PROT 6.8 11/06/2014 ALB 3.1* 11/06/2014 GLOB 3.7 11/06/2014 BILITOT 0.8 11/06/2014 ALP 214* 11/06/2014 AST 26 11/06/2014 ALT 29 11/06/2014 EGFR >60 11/06/2014 Microbiology: Blood cultures and urine cultures pending. Urinalysis shows microscopic hematuria, trace le ukocyte esterase, otherwise unremarkable. Medical imaging: Chest x-ray was viewed in PACS along with subsequent acute abdominal series. These show chr onic elevation of the right hemidiaphragm with mild atelectasis in the right lung base, no s ignificant abnormalities in the left lung base to my view. Radiology reports as follows: X-ray Abdomen Acute Series 11/06/2014 1. Nonspecific bowel gas pattern without evidence of bowel obstruction. 2. In creased stool in the colon, suggesting possible constipation. 3. Calcifications in the left upper quadrant, potentially in the left kidney or pancreas. Ct Head Non-contrast 11/05/[address] of the brain without contrast. Medical record review: I have reviewed the patient's admission history and physical as well as progress notes from the current hospital stay. Emergency department notes have also been reviewed. Much of this information is summarized above in history of present illness. PROBLEM LIST Principal Problem: Encephalopathy acute Active Problems: Febrile illness, acute Leucocytosis Diarrhea Chronic anticoagulation ASSESSMENT & PLAN Patient Active Hospital Problem List: Febrile illness with encephalopathy (11/05/2014) Concerned about possible gastroenteritis with associated meningitis. The patient is immun ocompromised. Meningismus is not always present in immunocompromised patients, and therefore we should pursue lumbar puncture to assess for meningitis. I would recommend starting ceftr iaxone 2 g IV q.12 hours for now, and will add acyclovir, vancomycin and ampicillin if lumba r puncture suggests meningitis. Note that the patient's penicillin allergy as nausea and vo miting. There should not be any concern with intravenous ampicillin. Leucocytosis (11/05/2014) Will monitor. Diarrhea (11/05/2014) The diarrhea itself is already resolved, will monitor. Code Status: Full Code Primary Care Physician: Neel Fernandes (General) Thank you for allowing me to participate in the care of this patient. I have discussed my recommendations with the attending physician. I will continue to follow with you. RAPHAEL TURNER DO 11/06/2014 documented in this enc ounter ED Notes Conversion Transaction, Provider Unknown - 11/05/2014 11:50 PM PDTFormatting of this note m ight be different from the original. ED Notes by Jared Singh RN at 11/05/142349 Author: Jared Singh RN Service: (none) Author Type: Registered Nurse Filed: 11/05/142350 Date of Service: 11/05/142349 Status: Signed Ceramic Engineer: Jared Singh RN (Registered Nurse) RT at bedside for ABG. Jared Singh RN 11/05/142350 onver roshan Transaction, Provider Unknown - 11/05/2014 11:41 PM PDT ED Notes by Jared Singh RN at 11/05/142340 Author: Jared Singh RN Service: (none) Author Type: Registered Nurse Filed: 11/05/142340 Date of Service: 11/05/142340 Status: Signed Ceramic Engineer: Jared Singh RN (Registered Nurse) RT paged for ABG. Jared Singh RN 11/05/142340 onver roshan Transaction, Provider Unknown - 11/05/2014 11:12 PM PDT ED Notes by Jared Singh RN at 11/05/142311 Author: Jared Singh RN Service: (none) Author Type: Registered Nurse Filed: 11/05/142314 Date of Service: 11/05/142311 Status: Addendum Ceramic Engineer: Jared Singh RN (Registered Nurse) Related Notes: Original Note by Jared Singh RN (Registered Nurse) filed at 11/05/14 2 314 Per "the previous couple of days she was in and out of sleep... Be up for 15 minute s and fall asleep. When I got up this morning she was throwing up." Reports patient started complaining of headache last night, patient with loss of sense of t eugenio. Denies any knowledge of patient with diarrhea. Jared Singh RN 11/05/14 1893 old, Rich Villanueva DO - 11/05/2014 9:35 PM PDT ED Provider Notes by Rich Padilla DO at 11/05/142134 Author: Rich Padilla DO Service: Emergency Department Author Type: Physician Filed: 11/06/14 1021 Date of Service: 11/05/142134 Status: Signed Ceramic Engineer: Rich Padilla DO (Physician) [facility] Department of Emergency Medicine Pre-arrival Provider: Another ED Provider Name: LKUASZ Sharp at [facility] ED Pertinent History and Concerns: Admitted [address] [facility] for UTI, last dose abx y . reports decreased level of consciousness, fever and emesis onset today. On meds for chronic pain, reports no meds taken today. Relevant Labs or Studies: Chest xray possible infiltrate right upper lobe. WBC 26.4, ESR 27 Relevant Medications: 2L NS, Morphine 26mg total, Zosyn 3.375gram completed 1936, Flagyl 50 0mg completed 1929, Vanco 1gram infusing during transfer, phenergan 25mg IVP Current Reported Vital Signs: 174/93, HR 99, RR 23, 99.3f, 98% SaO2 on 2L O2. (11/05/141950 : Jared Singh RN) 10:21 AM History of Present Illness Patient Identification Mackenzie Willingham is a 59 y.o. female. Patient information was obtained from patient and past medical records. History/Exam limitations: mental status. Patient presented to the Emergency Department by: Ambulance Chief Complaint Chief Complaint Patient presents with Altered Mental Status Fever- 9 Weeks To 74 Years Patient is a 59 y.o. female presenting with altered mental status. The history is provided by the patient and medical records. The history is limited by the condition of the patient. Altered Mental Status This is a new problem. The current episode started more than 2 days ago. The problem occurs constantly. The problem has been gradually worsening. Associated symptoms include headaches . Pertinent negatives include no chest pain, no abdominal pain and no shortness of breath. N othing aggravates the symptoms. Nothing relieves the symptoms. Treatments tried: Evaluated a t an outside facility, started on vancomycin, Levaquin, Flagyl. 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 Authorizing Provider cyanocobalamin 1000 MCG/ML injection Inject 1,000 mcg into the muscle every 30 (thirty) day s. Historical Provider inFLIXimab (REMICADE) 100 MG injection Inject 375 mg into the vein. Every 6 weeks Histor ical Provider lisinopril (ZESTRIL) 20 MG tablet Take 20 mg by mouth daily. Historical Provider LORazepam (ATIVAN) 0.5 MG tablet Take 0.5 mg by mouth every 6 (six) hours as needed for Anx iety. Historical Provider metoprolol (LOPRESSOR) 25 MG tablet Take 25 mg by mouth 2 (two) times daily. Historical Provider morphine (MSIR) 15 MG tablet Take 15 mg by mouth 5 (five) times daily. PRN Historical Pr ovider omeprazole (PRILOSEC) 40 MG capsule Take 40 mg by mouth 2 (two) times daily. Historical Provider oxyCODONE-acetaminophen (PERCOCET) 7.5-325 MG per tablet Take 1-2 tablets by mouth every 8 (eight) hours as needed for Pain. Historical Provider potassium chloride SA (K-DUR,KLOR-CON) 20 MEQ tablet Take 20 mEq by mouth 2 (two) times ivan ly. Historical Provider potassium chloride SA (KLOR-CON M15) 15 MEQ tablet Take 15 mEq by mouth 2 (two) times daily . Historical Provider predniSONE (DELTASONE) 10 MG tablet Take 15 mg by mouth daily. Historical Provider tamsulosin (FLOMAX) 0.4 MG capsule Take 0.4 mg by mouth After dinner. Administer 30 minute s after the same meal each day. Capsules should be swallowed whole; do not crush, chew, or o pen Historical Provider warfarin (COUMADIN) 6 MG tablet Take 6 mg by mouth daily. Historical Provider Allergies Allergen Reactions Demerol [Meperidine] Other (See Comments) Unknown Erythromycin Other (See Comments) unknown Levofloxacin Other (See Comments) tendinitis Reglan [Metoclopramide] Agitation Unknown Penicillins Nausea and Vomiting History Social History Marital Status: Spouse Name: N/A Number of Children: N/A Years of Education: N/A Occupational History Not on file. Social History Main Topics Smoking status: Current Every Day Smoker -- 0.50 packs/day Smokeless tobacco: Not on file Alcohol Use: Yes Comment: occasionally Drug Use: No Sexual Activity: Partners: Male Other Topics Concern Not on file Social History Narrative No family history on file. Review of Systems Review of Systems Constitutional: Negative for fever, chills and malaise/fatigue. HENT: Negative for sore throat. Eyes: Negative for blurred vision and double vision. Respiratory: Negative for cough, shortness of breath and wheezing. Cardiovascular: Negative for chest pain and palpitations. Gastrointestinal: Positive for diarrhea. Negative for nausea, vomiting and abdominal pain. Musculoskeletal: Negative for myalgias, joint pain and neck pain. Skin: Negative for itching and rash. Neurological: Positive for headaches. Psychiatric/Behavioral: Negative for depression and suicidal ideas. All other systems reviewed and are negative. Physical Exam BP 156/80 | Pulse 99 | Temp(Src) 100 F (37.8 C) (Oral) | Resp 18 | Ht 1.753 m (5' 9") | Wt 68.04 kg (150 lb) | BMI 22.14 kg/m2 | SpO2 97% Vital signs interpretation: Normal Pulse Oximetry interpretation: Normal Physical Exam Constitutional: She is oriented to person, place, and time. She appears well-developed and well-nourished. She appears listless. She is sleeping. She is easily aroused. She has a sick ly appearance. No distress. HENT: Head: Atraumatic. Right Ear: External ear normal. Left Ear: External ear normal. Eyes: Conjunctivae are normal. Right eye exhibits no discharge. Left eye exhibits no discha rge. Neck: Normal range of motion. Neck supple. No spinous process tenderness present. No rigidi ty. Normal range of motion present. No Brudzinski's sign and no Kernig's sign noted. Cardiovascular: Normal rate, regular rhythm and normal heart sounds. Exam reveals no frict ion rub. No murmur heard. Pulmonary/Chest: Effort normal and breath sounds normal. No respiratory distress. She has n o wheezes. She has no rales. Abdominal: She exhibits no distension. Round Genitourinary: Deferred Musculoskeletal: Normal range of motion. She exhibits no edema or deformity. Neurological: She is oriented to person, place, and time and easily aroused. She appears li stless. No cranial nerve deficit. Follows commands without difficulty Skin: Skin is warm and dry. No rash noted. Psychiatric: She has a normal mood and affect. Her behavior is normal. Judgment and thought content normal. She is inattentive. Nursing note and vitals reviewed. Medical Decision Making and Emergency Department Course ED Department Course The patient was transferred to this facility due to concerns about the patient developing a significant, location related to her undiagnosed illness. The patient had recently been therese ated for urinary tract infection, and completed the course of antibiotics today. The patient was noted to have diarrhea, which the patient states is consistent with her typical diarrhe a. On physical examination, there is no evidence that would suggest a meningitis. Due to the patient's altered mental status, I will order a CT scan and then contact the hospitalist dee conde to arrange for admission. [address] Haines who agrees with care plan and will see patient in the E D, requests that I order a cardiac panel and ABG on the patient. ED Medication Administration from 11/05/20142099 to 11/05/20142134 Date/Time Order Dose Route Action Action by 11/05/20142109 ondansetron (ZOFRAN) injection 8 mg 8 mg Intravenous Given Aria melchor, RN Records Reviewed Old medical records. Nursing notes. Laboratory Evaluation Results Procedure Component Value Ref Range Date/Time Cardiac Panel [[id number]] (Abnormal) Collected: 11/05/142341 Order Status: Completed Updated: 11/06/14 0030 WBC 24.99 (H) 3.80 - 11.00 K/uL [...] CK-MB Index 1.2 POC Arterial Blood Gas [[id number]] (Abnormal) Collected: 11/05/14 7991 Order Status: Completed Updated: 11/06/14 0015 POC FIO2 32 % pH, Art 7.365 7.350 - 7.450 POC PCO2 50 (H) 35 - 45 mmHg POC p02 81 80 - 105 mmHg POC HCO3 28 (H) 22 - 26 mmol/L POC TCO2 30 (H) 23 - 27 mEq/L POC BASE EXCESS 3 0 - 3 mEq/L POC S02 95 95 - 98 % I personally reviewed the lab results and they have been posted to the chart. Pertinent po sitive and negative findings have been addressed appropriately. Radiology and EKG Evaluation Imaging Results CT Head Non-Contrast (Final result) Result time: 11/05/14 22:32:35 Final result by Rad Results In [place] (11/05/14 22:32:35) Impression: 1. Normal CT of the brain without contrast. Narrative: HISTORY: Altered mental status. COMPARISON: 04/22/14, 04/19/14. TECHNIQUE: 5-mm axial noncontrast CT images of the brain were acquired from the foramen magnum through the cranial vertex. FINDINGS: The cortical sulci, basal cisterns, and ventricles appear unremarkable. Orbital structures unremarkable. Bone windows show dental hardware. The posterior most left maxillary tetracusp id is transversely oriented, with the cusps pointing laterally. ED Diagnoses Final diagnoses Acute nonintractable headache, unspecified headache type Leukocytosis Somnolence Disposition: ED Disposition Admit/Observation Bed request special needs: Active diarrhea Diagnosis?: fever, leukocytosis, diarrhea Follow-up Information None Discharge Medications: Current Discharge Medication List Dr. Rich Padilla D.O. Dictation software, [employer], used which may contain error for similar sounding words even af ter review. Personal communication requested for any clarification. Procedures Additional Documentation Procedures Rich Padilla, 11/06/14 1021 onversio n Transaction, Provider Unknown - 11/05/2014 9:33 PM PDTFormatting of this note might be di fferent from the original. ED Notes by Jared Singh RN at 11/05/142132 Author: Jared Singh RN Service: (none) Author Type: Registered Nurse Filed: 11/05/142132 Date of Service: 11/05/142132 Status: Signed Ceramic Engineer: Jared Singh RN (Registered Nurse) Dr Padilla at bedside for exam. Jared Singh RN 11/05/142132 onver roshan Transaction, Provider Unknown - 11/05/2014 9:16 PM PDT ED Notes by Jared Singh RN at 11/05/142115 Author: Jared Singh RN Service: (none) Author Type: Registered Nurse Filed: 11/05/142115 Date of Service: 11/05/142115 Status: Signed Ceramic Engineer: Jared Singh RN (Registered Nurse) histologist technologist notified of cardiac monitoring. Jared Singh RN 11/05/142115 onver roshan Transaction, Provider Unknown - 11/05/2014 9:00 PM PDT ED Notes by Jared Singh RN at 11/05/142099 Author: Jared Singh RN Service: (none) Author Type: Registered Nurse Filed: 11/05/142099 Date of Service: 11/05/142099 Status: Signed Ceramic Engineer: Jared L Singh, RN (Registered Nurse) Bed: 04 Expected date: Expected time: Means of arrival: Comments: [facility] transfer docume nted in this encounter Miscellaneous Notes Plan of Care - Conversion Transaction, Provider Unknown - 11/08/2014 8:15 PM PDT Plan of Care by Gayatri Dumont RN at 11/08/142014 Author: Gayatri Dumont RN Service: (none) Author Type: Registered Nurse Filed: 11/09/14 0013 Date of Service: 11/08/142014 Status: Signed Ceramic Engineer: Gayatri Dumont RN (Registered Nurse) Problem: Pain Goal: Patient s pain/discomfort is manageable Assess and monitor patient s pain using appropriate pain scale. Collaborate with interdis ciplinary team and initiate plan and interventions as ordered. Re-assess patient s pain le sheri approximately 1-2 hours after pain management intervention. Premedicate as needed. Outcome: Progressing PRN pain medication given for chronic pain. Pain interventions discussed, pt updated on plan of care. Will continue to monitor pain level and treat appropriately. Problem: Safety Goal: Patient will be injury free during hospitalization Assess and monitor vitals signs, neurological status including level of consciousness and o rientation. Assess patient s risk for falls and implement fall prevention plan of care and interventions per hospital policy. Ensure arm band on, uncluttered walking paths in room, adequate room lighting, call light a nd overbed table within reach, bed in low position, wheels locked, side rails up per policy, and non-skid footwear provided. Outcome: Progressing ID band in place. Call light use reviewed. Encouraged pt to call for assistance from nursing staff prior to ambulating independently. Non-skid socks on. Fall risk sign on door. Bed alarm on. Problem: Daily Care Goal: Daily care needs are met Assess and monitor ability to perform self care and identify potential discharge needs. Outcome: Progressing Will provide assistance with ADLs as needed. lan o f Care - Conversion Transaction, Provider Unknown - 11/07/2014 11:58 AM PDTFormatting of thi s note might be different from the original. Plan of Care by Abhi Thomas RN at 11/07/141157 Author: Abhi Thomas RN Service: (none) Author Type: Registered Nurse Filed: 11/07/141157 Date of Service: 11/07/141157 Status: Signed Ceramic Engineer: Abhi Thomas RN (Registered Nurse) Daily Care Daily care needs are met Progressing Discharge Barriers Patient's discharge needs are met Progressing Pain Patient's pain/discomfort is manageable Progressing Psychosocial Needs Demonstrates ability to cope with hospitalization/illness Progressing Collaborate with patient/family/caregiver to identify patient specific goals for this h ospitalization Progressing Safety Patient will be injury free during hospitalization Progressing lan o f Care - Conversion Transaction, Provider Unknown - 11/06/2014 1:44 PM PDTFormatting of thi s note might be different from the original. Plan of Care by Abhi Thomas RN at 11/06/141343 Author: Abhi Thomas RN Service: (none) Author Type: Registered Nurse Filed: 11/06/141343 Date of Service: 11/06/141343 Status: Signed Ceramic Engineer: Abhi Thomas RN (Registered Nurse) Daily Care Daily care needs are met Progressing Discharge Barriers Patient's discharge needs are met Progressing Pain Patient's pain/discomfort is manageable Progressing Psychosocial Needs Demonstrates ability to cope with hospitalization/illness Progressing Collaborate with patient/family/caregiver to identify patient specific goals for this h ospitalization Progressing Safety Patient will be injury free during hospitalization Progressing docume nted in this encounter Plan of [...] [place] | | | | | | [id number] | | | | + + + + + + | Non- | 3.74Comment: Testing | 3.70 - 5.10 | EXTERNAL | | | Red Blood | performed at [facility], [address] | M/uL | LAB | | | Cells | [address], | | | | | Counted | [place] [id number] | | | | + + + + + + | Hemoglobin | 11.3Comment: Testing | 11.3 - 15.5 | EXTERNAL | | | | performed at [facility], [address] | g/dL | LAB | | | | [address], | | | | | | [place] [address] | | | | + + + + + + | Hematocrit, | 35.4Comment: Testing | 34.0 - 46.0 % | EXTERNAL | | | POC | performed at [facility], [address] | | LAB | | | | [address], | | | | | | [place] [address] | | | | + + + + + + | MCV | 94.7Comment: Testing | 80.0 - 100.0 fl | EXTERNAL | | | | performed at [facility], [address] | | LAB | | | | [address], | | | | | | [place] [address] | | | | + + + + + + | MCH | 30.3Comment: Testing | 27.0 - 34.0 pg | EXTERNAL | | | | performed at [facility], [address] | | LAB | | | | [address], | | | | | | [place] [address] | | | | + + + + + + | MCHC | 32.0Comment: Testing | 32.0 - 35.5 | EXTERNAL | | | | performed at [facility], [address] | g/dL | LAB | | | | [address], | | | | | | [place] [address] | | | | + + + + + + | RDW-CV | 59.5 (H)Comment: Testing | 37 - 53 fl | EXTERNAL | | | | performed at [facility], [address] | | LAB | | | | [address], | | | | | | [place] [address] | | | | + + + + + + | Platelet | 393Comment: Testing | 150 - 400 K/uL | EXTERNAL | | | Count | performed at [facility], [address] | | LAB | | | Plasma | [address], | | | | | | [place] [address] | | | | + + + + + + | MPV | 8.4Comment: Testing | fl | EXTERNAL | | | | performed at [facility], [address] | | LAB | | | | [address], | | | | | | [place] [address] | | | | + + + [...] | | | | | performed at [facility];[address] | | | | | | [facility], [place] | | | | | | [address] | | | | + + + [...] Tez Roper - 11/24/2018 6:38 AM PDT HISTORY:Multiple sclerosis. [...] [place] | | | | | | [address] | | | | + + + + + + | Non- | 3.75Comment: Testing | 3.70 - 5.10 | EXTERNAL | | | Red Blood | performed at [facility], [address] | M/uL | LAB | | | Cells | [address], | | | | | Counted | [place] [address] | | | | + + + + + + | Hemoglobin | 11.2 (L)Comment: Testing | 11.3 - 15.5 | EXTERNAL | | | | performed at [facility], [address] | g/dL | LAB | | | | [address], | | | | | | [place] [address] | | | | + + + + + + | Hematocrit, | 36.1Comment: Testing | 34.0 - 46.0 % | EXTERNAL | | | POC | performed at [facility], [address] | | LAB | | | | [address], | | | | | | [place] [address] | | | | + + + + + + | MCV | 96.2Comment: Testing | 80.0 - 100.0 fl | EXTERNAL | | | | performed at [facility], [address] | | LAB | | | | [address], | | | | | | [place] [address] | | | | + + + + + + | MCH | 30.0Comment: Testing | 27.0 - 34.0 pg | EXTERNAL | | | | performed at [facility], [address] | | LAB | | | | [address], | | | | | | [place] [address] | | | | + + + + + + | MCHC | 31.2 (L)Comment: Testing | 32.0 - 35.5 | EXTERNAL | | | | performed at [facility], [address] | g/dL | LAB | | | | [address], | | | | | | [place] [address] | | | | + + + + + + | RDW-CV | 58.6 (H)Comment: Testing | 37 - 53 fl | EXTERNAL | | | | performed at [facility], [address] | | LAB | | | | [address], | | | | | | [place] [address] | | | | + + + + + + | Platelet | 391Comment: Testing | 150 - 400 K/uL | EXTERNAL | | | Count | performed at [facility], [address] | | LAB | | | Plasma | [address], | | | | | | [place] [address] | | | | + + + + + + | MPV | 8.6Comment: Testing | fl | EXTERNAL | | | | performed at [facility], [address] | | LAB | | | | [address], | | | | | | [place] [address] | | | | + + + [...] | | | | | performed at [facility] | | | | | | [facility], [place] | | | | | | [address] | | | | + + + [...] | | | | | [place] [address] | | | | + + + + + + | K | 3.4 (L)Comment: Testing | 3.5 - 4.9 | EXTERNAL | | | | performed at [facility], [address] | mmol/L | LAB | | | | [address], | | | | | | [place] [address] | | | | + + + + + + | Cl | 109Comment: Testing | 99 - 109 mmol/L | EXTERNAL | | | | performed at [facility], [address] | | LAB | | | | [address], | | | | | | [place] [address] | | | | + + + + + + | CO2 | 20 (L)Comment: Testing | 23 - 32 mmol/L | EXTERNAL | | | | performed at [facility], [address] | | LAB | | | | [address], | | | | | | [place] [address] | | | | + + + + + + | Anion Gap | 11Comment: Testing | 5 - 20 mmol/L | EXTERNAL | | | | performed at [facility], [address] | | LAB | | | | [address], | | | | | | [place] [address] | | | | + + + + + + | Glucose, | 74Comment: Testing | 65 - 99 mg/dL | EXTERNAL | | | Fasting | performed at [facility], [address] | | LAB | | | | [address], | | | | | | [place] [address] | | | | + + + + + + | BUN | 8Comment: Testing | 8 - 25 mg/dL | EXTERNAL | | | | performed at [facility], [address] | | LAB | | | | [address], | | | | | | [place] [address] | | | | + + + + + + | Creatinine | 0.57Comment: Testing | 0.50 - 1.00 | EXTERNAL | | | | performed at [facility], [address] | mg/dL | LAB | | | | [address], | | | | | | [place] [address] | | | | + + + + + + | BUN/Creatin | 14Comment: Testing | | EXTERNAL | | | ine Ratio | performed at [facility], [address] | | LAB | | | | [address], | | | | | | [place] [address] | | | | + + + + + + | Calcium | 8.5Comment: Testing | 8.5 - 10.5 | EXTERNAL | | | | performed at [facility], [address] | mg/dL | LAB | | | [address], | | | | | | [place] [address] | | | | + + + + + + | Protein, | 5.9 (L)Comment: Testing | 6.3 - 8.2 g/dL | EXTERNAL | | | Total | performed at [facility], [address] | | LAB | | | | [address], | | | | | | [place] [address] | | | | + + + + + + | Albumin | 2.7 (L)Comment: Testing | 3.6 - 5.0 g/dL | EXTERNAL | | | | performed at [facility], [address] | | LAB | | | | [address], | | | | | | [place] [address] | | | | + + + + + + | Globulin | 3.2Comment: Testing | 1.3 - 4.9 g/dL | EXTERNAL | | | | performed at [facility], [address] | | LAB | | | | [address], | | | | | | [place] [address] | | | | + + + + + + | A/G Ratio | 0.8 (L)Comment: Testing | 1.0 - 2.4 | EXTERNAL | | | | performed at [facility], [address] | | LAB | | | | [address], | | | | | | [place] [address] | | | | + + + + + + | Bilirubin | 0.4Comment: Testing | 0.1 - 1.5 mg/dL | EXTERNAL | | | Total | performed at [facility], [address] | | LAB | | | | [address], | | | | | | [place] [address] | | | | + + + + + + | ALP, | 137 (H)Comment: Testing | 35 - 115 U/L | EXTERNAL | | | External | performed at [facility], [address] | | LAB | | | | [address], | | | | | | [place] [address] | | | | + + + + + + | AST | 13Comment: Testing | 10 - 45 U/L | EXTERNAL | | | | performed at [facility], [address] | | LAB | | | | [address], | | | | | | [place] [address] | | | | + + + + + + | ALT | 13Comment: Testing | 10 - 65 U/L | EXTERNAL | | | | performed at [facility], [address] | | LAB | | | | [address], | | | | | | [place] [address] | | | | + + + [...] | | | | | | at [facility], [address] | | | | | | [address], | | | | | | [place] [address] | | | | + + + + + + + + | Specimen | + + | Blood specimen | | (specimen) | + + + +---------+ + + | Performing | Address | City/State/Zipcode | Phone Number | | Organization | | | | + +---------+ + + | EXTERNAL LAB | | | | + +---------+ + + Mauime SANDRA (11/08/2014 3:39 AM PDT) + + + [...] | | | | | performed at [facility] | | | | | | [facility];[place], [place] | | | | | | [...] [place] | | | | | | [address] | | | | + + + + + + | Non- | 4.07Comment: Testing | 3.70 - 5.10 | EXTERNAL | | | Red Blood | performed at [facility], [address] | M/uL | LAB | | | Cells | [address], | | | | | Counted | [place] [address] | | | | + + + + + + | Hemoglobin | 12.3Comment: Testing | 11.3 - 15.5 | EXTERNAL | | | | performed at [facility], [address] | g/dL | LAB | | | [address], | | | | | | [place] [address] | | | | + + + + + + | Hematocrit, | 38.1Comment: Testing | 34.0 - 46.0 % | EXTERNAL | | | POC | performed at [facility], [address] | | LAB | | | | [address], | | | | | | [place] [address] | | | | + + + + + + | MCV | 93.6Comment: Testing | 80.0 - 100.0 fl | EXTERNAL | | | | performed at [facility], [address] | | LAB | | | | [address], | | | | | | [place] [address] | | | | + + + + + + | MCH | 30.2Comment: Testing | 27.0 - 34.0 pg | EXTERNAL | | | | performed at [facility], [address] | | LAB | | | | [address], | | | | | | [place], [place] [address] | | | | + + + + + + | MCHC | 32.2Comment: Testing | 32.0 - 35.5 | EXTERNAL | | | | performed at [facility], [address] | g/dL | LAB | | | | [address], | | | | | | [place] [address] | | | | + + + + + + | RDW-CV | 59.1 (H)Comment: Testing | 37 - 53 fl | EXTERNAL | | | | performed at [facility], [address] | | LAB | | | | [address], | | | | | | [place] [address] | | | | + + + + + + | Platelet | 390Comment: Testing | 150 - 400 K/uL | EXTERNAL | | | Count | performed at [facility], [address] | | LAB | | | Plasma | [address], | | | | | | [place] [address] | | | | + + + + + + | MPV | 8.4Comment: Testing | fl | EXTERNAL | | | | performed at [facility], [address] | | LAB | | | | [address], | | | | | | [place] [address] | | | | + + + + + + | Differentia | AUTOMATEDComment: | | EXTERNAL | | | l Type | Testing performed at | | LAB | | | | [facility], [address] | | | | | | [place] | | | | | | [address] | | | | + + + + + + | % Segmented | 69.87Comment: Testing | % | EXTERNAL | | | | performed at [facility], [address] | | LAB | | | Neutrophils | [address], | | | | | | [place] [address] | | | | + + + + + + | % | 16.92Comment: Testing | % | EXTERNAL | | | Lymphocytes | performed at [facility], [address] | | LAB | | | | [address], | | | | | | [place] [address] | | | | + + + + + + | % Monocytes | 11.85Comment: Testing | % | EXTERNAL | | | | performed at [facility], [address] | | LAB | | | | [address], | | | | | | [place] [address] | | | | + + + + + + | % | 0.93Comment: Testing | % | EXTERNAL | | | Eosinophils | performed at [facility], [address] | | LAB | | | | [address], | | | | | | [place] [address] | | | | + + + + + + | % Basophils | 0.43Comment: Testing | % | EXTERNAL | | | | performed at [facility], [address] | | LAB | | | | [address], | | | | | | [place] [address] | | | | + + + + + + | Absolute | 12.01 (H)Comment: | 1.90 - 7.40 | EXTERNAL | | | Segmented | Testing performed at | K/uL | LAB | | | Neutrophils | [facility], [address] | | | | | | [place] | | | | | | [address] | | | | + + + + + + | Absolute | 2.91Comment: Testing | 1.00 - 3.90 | EXTERNAL | | | Lymphocytes | performed at [facility], [address] | K/uL | LAB | | | | [address], | | | | | | [place] [address] | | | | + + + + + + | Absolute | 2.04 (H)Comment: Testing | 0.00 - 0.80 | EXTERNAL | | | Monocytes | performed at [facility], [address] | K/uL | LAB | | | | [address], | | | | | | [place] [address] | | | | + + + + + + | Absolute | 0.16Comment: Testing | 0.00 - 0.50 | EXTERNAL | | | Eosinophils | performed at [facility], [address] | K/uL | LAB | | | | [address], | | | | | | [place] [address] | | | | + + + + + + | Absolute | 0.07Comment: Testing | 0.00 - 0.10 | EXTERNAL | | | Basophils | performed at [facility], [address] | K/uL | LAB | | | | [address], | | | | | | [place] [address] | | | | + + + + + + | RBC | 2+Comment: ANISONORMAL | | EXTERNAL | | | Morphology | PLT MORPHTesting | | LAB | | | | performed at [facility], [address] | | | | | | [address] [facility], | | | | | | [place] [address] | | | | | | | [...] | | | | | [place] [address] | | | | + + + [...] [place] | | | | | | [address] | | | | + + + + + + | Cl | 104Comment: Testing | 99 - 109 mmol/L | EXTERNAL | | | | performed at [facility], [address] | | LAB | | | | [address], | | | | | | [place] [address] | | | | + + + + + + | CO2 | 21 (L)Comment: Testing | 23 - 32 mmol/L | EXTERNAL | | | | performed at [facility], [address] | | LAB | | | | [address], | | | | | | [place] [address] | | | | + + + + + + | Anion Gap | 12Comment: Testing | 5 - 20 mmol/L | EXTERNAL | | | | performed at [facility], [address] | | LAB | | | | [address], | | | | | | [place] [address] | | | | + + + + + + | Glucose, | 83Comment: Testing | 65 - 99 mg/dL | EXTERNAL | | | Fasting | performed at [facility], [address] | | LAB | | | | [address], | | | | | | [place] [address] | | | | + + + + + + | BUN | 8Comment: Testing | 8 - 25 mg/dL | EXTERNAL | | | | performed at [facility], [address] | | LAB | | | | [address], | | | | | | [place] [address] | | | | + + + + + + | Creatinine | 0.52Comment: Testing | 0.50 - 1.00 | EXTERNAL | | | | performed at [facility], [address] | mg/dL | LAB | | | | [address], | | | | | | [place] [address] | | | | + + + + + + | BUN/Creatin | 15Comment: Testing | | EXTERNAL | | | ine Ratio | performed at [facility], [address] | | LAB | | | [address], | | | | | | [place] [address] | | | | + + + + + + | Calcium | 8.6Comment: Testing | 8.5 - 10.5 | EXTERNAL | | | | performed at [facility], [address] | mg/dL | LAB | | | | [address], | | | | | | [place] [address] | | | | + + + + + + | Protein, | 5.8 (L)Comment: Testing | 6.3 - 8.2 g/dL | EXTERNAL | | | Total | performed at [facility], [address] | | LAB | | | | [address], | | | | | | [place] [address] | | | | + + + + + + | Albumin | 2.9 (L)Comment: Testing | 3.6 - 5.0 g/dL | EXTERNAL | | | | performed at [facility], [address] | | LAB | | | | [address], | | | | | | [place] [address] | | | | + + + + + + | Globulin | 2.9Comment: Testing | 1.3 - 4.9 g/dL | EXTERNAL | | | | performed at [facility], [address] | | LAB | | | | [address], | | | | | | [place] [address] | | | | + + + + + + | A/G Ratio | 1.0Comment: Testing | 1.0 - 2.4 | EXTERNAL | | | | performed at [facility], [address] | | LAB | | | | [address], | | | | | | [place] [address] | | | | + + + + + + | Bilirubin | 0.7Comment: Testing | 0.1 - 1.5 mg/dL | EXTERNAL | | | Total | performed at [facility], [address] | | LAB | | | | [address], | | | | | | [place] [address] | | | | + + + + + + | ALP, | 169 (H)Comment: Testing | 35 - 115 U/L | EXTERNAL | | | External | performed at [facility], [address] | | LAB | | | | [address], | | | | | | [place] [address] | | | | + + + + + + | AST | 16Comment: Testing | 10 - 45 U/L | EXTERNAL | | | | performed at [facility], [address] | | LAB | | | | [address], | | | | | | [place] [address] | | | | + + + + + + | ALT | 17Comment: Testing | 10 - 65 U/L | EXTERNAL | | | | performed at [facility], [address] | | LAB | | | | [address], | | | | | | [place] [address] | | | | + + + [...] | | | | | | at [facility], [address] | | | | | | [address], | | | | | | [place] [address] | | | | + + + [...] | | | Total | performed at [facility], [address] | | LAB | | | | [address], | | | | | | [place] [address] | | | | + + + [...] Conversion - 11/24/2018 6:38 AM PDT [facility] | | HEAD11/07/2014 [...] | | | | | performed at [facility] | | | | | | [address];[place], [place] | | | | | | [address] | | | | + + + [...] K/uL | LAB | | | | [facility], [address] [facility] | | | | | | [place] | | | | | | [address] | | | | + + + + + + | Non- | 4.28Comment: Testing | 3.70 - 5.10 | EXTERNAL | | | Red Blood | performed at [facility], [address] | M/uL | LAB | | | Cells | [address], | | | | | Counted | [place] [address] | | | | + + + + + + | Hemoglobin | 13.0Comment: Testing | 11.3 - 15.5 | EXTERNAL | | | | performed at [facility], [address] | g/dL | LAB | | | | [address], | | | | | | [place] [address] | | | | + + + + + + | Hematocrit, | 40.0Comment: Testing | 34.0 - 46.0 % | EXTERNAL | | | POC | performed at [facility], [address] | | LAB | | | | [address], | | | | | | [place] [address] | | | | + + + + + + | MCV | 93.4Comment: Testing | 80.0 - 100.0 fl | EXTERNAL | | | | performed at [facility], [address] | | LAB | | | | [address], | | | | | | [place] [address] | | | | + + + + + + | MCH | 30.3Comment: Testing | 27.0 - 34.0 pg | EXTERNAL | | | | performed at [facility], [address] | | LAB | | | | [address], | | | | | | [place] [address] | | | | + + + + + + | MCHC | 32.5Comment: Testing | 32.0 - 35.5 | EXTERNAL | | | | performed at [facility], [address] | g/dL | LAB | | | | [address], | | | | | | [place] [address] | | | | + + + + + + | RDW-CV | 57.8 (H)Comment: Testing | 37 - 53 fl | EXTERNAL | | | | performed at [facility], [address] | | LAB | | | | [address], | | | | | | [place] [address] | | | | + + + + + + | Platelet | 403 (H)Comment: Testing | 150 - 400 K/uL | EXTERNAL | | | Count | performed at [facility], [address] | | LAB | | | Plasma | [address], | | | | | | [place] [address] | | | | + + + + + + | MPV | 8.4Comment: Testing | fl | EXTERNAL | | | | performed at [facility], [address] | | LAB | | | | [address], | | | | | | [place] [address] | | | | + + + + + + | Differentia | AUTOMATEDComment: | | EXTERNAL | | | l Type | Testing performed at | | LAB | | | | [facility], [address] | | | | | | [place] | | | | | | [address] | | | | + + + + + + | % Segmented | 69.85Comment: Testing | % | EXTERNAL | | | | performed at [facility], [address] | | LAB | | | Neutrophils | [address], | | | | | | [place] [address] | | | | + + + + + + | % | 17.96Comment: Testing | % | EXTERNAL | | | Lymphocytes | performed at [facility], [address] | | LAB | | | | [address], | | | | | | [place] [address] | | | | + + + + + + | % Monocytes | 11.10Comment: Testing | % | EXTERNAL | | | | performed at [facility], [address] | | LAB | | | | [address], | | | | | | [place] [address] | | | | + + + + + + | % | 0.77Comment: Testing | % | EXTERNAL | | | Eosinophils | performed at [facility], [address] | | LAB | | | | [address], | | | | | | [place] [address] | | | | + + + + + + | % Basophils | 0.32Comment: Testing | % | EXTERNAL | | | | performed at [facility], [address] | | LAB | | | | [address], | | | | | | [place] [address] | | | | + + + + + + | Absolute | 10.28 (H)Comment: | 1.90 - 7.40 | EXTERNAL | | | Segmented | Testing performed at | K/uL | LAB | | | Neutrophils | [facility], [address] | | | | | | [place] | | | | | | [address] | | | | + + + + + + | Absolute | 2.64Comment: Testing | 1.00 - 3.90 | EXTERNAL | | | Lymphocytes | performed at [facility], [address] | K/uL | LAB | | | | [address], | | | | | | [place] [address] | | | | + + + + + + | Absolute | 1.63 (H)Comment: Testing | 0.00 - 0.80 | EXTERNAL | | | Monocytes | performed at [facility], [address] | K/uL | LAB | | | | [address], | | | | | | [place] [address] | | | | + + + + + + | Absolute | 0.11Comment: Testing | 0.00 - 0.50 | EXTERNAL | | | Eosinophils | performed at [facility], [address] | K/uL | LAB | | | | [address], | | | | | | [place] [address] | | | | + + + + + + | Absolute | 0.05Comment: Testing | 0.00 - 0.10 | EXTERNAL | | | Basophils | performed at [facility], [address] | K/uL | LAB | | | | [address], | | | | | | [place] [address] | | | | + + + [...] | | | | | [place] [address] | | | | + + + + + + | K | 3.1 (L)Comment: Testing | 3.5 - 4.9 | EXTERNAL | | | | performed at [facility], [address] | mmol/L | LAB | | | | [address], | | | | | | [place] [address] | | | | + + + + + + | Cl | 96 (L)Comment: Testing | 99 - 109 mmol/L | EXTERNAL | | | | performed at [facility], [address] | | LAB | | | | [address], | | | | | | [place] [address] | | | | + + + + + + | CO2 | 24Comment: Testing | 23 - 32 mmol/L | EXTERNAL | | | | performed at [facility], [address] | | LAB | | | | [address], | | | | | | [place] [address] | | | | + + + + + + | Anion Gap | 11Comment: Testing | 5 - 20 mmol/L | EXTERNAL | | | | performed at [facility], [address] | | LAB | | | | [address], | | | | | | [place] [address] | | | | + + + + + + | Glucose, | 102 (H)Comment: Testing | 65 - 99 mg/dL | EXTERNAL | | | Fasting | performed at [facility], [address] | | LAB | | | | [address], | | | | | | [place] [address] | | | | + + + + + + | BUN | 6 (L)Comment: Testing | 8 - 25 mg/dL | EXTERNAL | | | | performed at [facility], [address] | | LAB | | | | [address], | | | | | | [place] [address] | | | | + + + + + + | Creatinine | 0.49 (L)Comment: Testing | 0.50 - 1.00 | EXTERNAL | | | | performed at [facility], [address] | mg/dL | LAB | | | | [address], | | | | | | [place] [address] | | | | + + + + + + | BUN/Creatin | 12Comment: Testing | | EXTERNAL | | | ine Ratio | performed at [facility], [address] | | LAB | | | [address], | | | | | | [place] [address] | | | | + + + + + + | Calcium | 8.5Comment: Testing | 8.5 - 10.5 | EXTERNAL | | | | performed at [facility], [address] | mg/dL | LAB | | | | [address], | | | | | | [place] [address] | | | | + + + + + + | Protein, | 6.1 (L)Comment: Testing | 6.3 - 8.2 g/dL | EXTERNAL | | | Total | performed at [facility], [address] | | LAB | | | | [address], | | | | | | [place] [address] | | | | + + + + + + | Albumin | 3.0 (L)Comment: Testing | 3.6 - 5.0 g/dL | EXTERNAL | | | | performed at [facility], [address] | | LAB | | | | [address], | | | | | | [place] [address] | | | | + + + + + + | Globulin | 3.1Comment: Testing | 1.3 - 4.9 g/dL | EXTERNAL | | | | performed at [facility], [address] | | LAB | | | | [address], | | | | | | [place] [address] | | | | + + + + + + | A/G Ratio | 1.0Comment: Testing | 1.0 - 2.4 | EXTERNAL | | | | performed at [facility], [address] | | LAB | | | | [address], | | | | | | [place] [address] | | | | + + + + + + | Bilirubin | 0.7Comment: Testing | 0.1 - 1.5 mg/dL | EXTERNAL | | | Total | performed at [facility], [address] | | LAB | | | | [address], | | | | | | [place] [address] | | | | + + + + + + | ALP, | 208 (H)Comment: Testing | 35 - 115 U/L | EXTERNAL | | | External | performed at [facility], [address] | | LAB | | | | [address], | | | | | | [place] [address] | | | | + + + + + + | AST | 21Comment: Testing | 10 - 45 U/L | EXTERNAL | | | | performed at [facility], [address] | | LAB | | | | [address], | | | | | | [place] [address] | | | | + + + + + + | ALT | 21Comment: Testing | 10 - 65 U/L | EXTERNAL | | | | performed at [facility], [address] | LAB | | | | [address], | | | | | | [place] [address] | | | | + + + [...] | | | | | | [place] [address] | | | | + + + + + + + + | Specimen | + + | Blood specimen | | (specimen) | + + + +---------+ + + | Performing | Address | City/State/Zipcode | Phone Number | | Organization | | | | + +---------+ + + | EXTERNAL LAB | | | | + +---------+ + + Alexsandra, Jami (11/06/2014 3:59 PM PDT) + + | Specimen | + + | | + + + + + | Narrative | Performed At | + + + | Specimen Description CEREBROSPINAL FLUID | EXTERNAL LAB | | CULTURE NO FUNGUS ISOLATED | | | Testing performed | | | at [facility], [address] [place] [address] | | + + + + +---------+ [...] LAB | | | | performed at [facility];[address] | | | | | | [address];[place] | | | | | | [address] | | | | + + + + + + | [facility] | Comment: ACCESSION NO. | | EXTERNAL | | | CSF | | | LAB | | | | [id number] | | | | | | SOURCE | | | | | | CEREBROSPINAL | | | | | | FLUIDRESULT | | | | | | | | | | | | NEGATIVETesting | | | | | | performed at [facility] | | | | | | [facility], | | | | | | [address] | | | | | | [address] | | | | + + + + + + | CRYPTOCOCCU | REPORT STATUS | | EXTERNAL | | | S AG, CSF | FINAL | | LAB | | | | 11/08/2014Comment: | | | | | | Testing performed at | | | | | | [facility] | | | | | | [place], [address], | | | | | | [place] [address] | | | | + + [...] | EXTERNAL LAB | | performed at [facility];[address] [place] [id number] NAP1 BI | | | 027 NAP1 BI PRESUMPTIVE NEGATIVE | | | Detection of 027 NAP1 BI strains of C. difficile is presumptive and | | | for epidemiological purposes and not intended to guide or monitor | | | treatment for C. difficile infections. Testing performed at [facility];[address] | | [facility];[place] [address] | | + + + + +---------+ [...] TESTING. | | | Testing performed at [facility], [address] | | | [place] [address] | | + + + + +---------+ [...] EXTERNAL LAB | | Testing performed at [facility];[address] [place] [address];[place] [id number] RESULT | | | NEGATIVE Reference range: [...] MICROLITER OF PATIENT SPECIMEN. Testing performed at [facility], | | | [address] [place] [address] COMMENT | | | SEE BELOW THIS TEST WAS DEVELOPED AND ITS | | | PERFORMANCE CHARACTERISTICS DETERMINED BY [facility] HOSPITAL. THE U.S. FOOD AND | | | DRUG ADMINISTRATION (FDA) HAS NOT APPROVED OR CLEARED THIS TEST. | | | HOWEVER, FDA APPROVAL OR CLEARANCE IS CURRENTLY NOT REQUIRED FOR | | | CLINICAL USE OF THIS TEST. THE RESULTS ARE NOT INTENDED TO BE USED | | | THE SOLE MEANS FOR CLINICAL DIAGNOSIS OR PATIENT MANAGEMENT | | | DECISIONS. [facility] IS AUTHORIZED UNDER CLINICAL LABORATORY IMPROVEMENT | | | AMENDMENTS (CLIA) TO PERFORM HIGH-COMPLEXITY TESTING. 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 POLYMERASE CHAIN | | | REACTION (RT-PCR) USING THE ClipsureERT DX SYSTEM FOR THE | | | [...] RT-PCR Testing | | | performed at [facility], [address] [place] [address] | | + + + + +---------+ [...] EXTERNAL LAB | | Testing performed at [facility];[address] [place] [address];[place] [address] SOURCE | | | SEE BELOW CEREBROSPINAL FLUID | | | Testing performed by [facility] [address] HSV DNA Type 1 | | | NOT DETECTED Testing performed at [facility], [address] | | | [facility] [address] HSV DNA Type 2 | | | NOT DETECTED Testing performed at [facility], [address] [facility], | | | [facility] [address] COMMENT | | | SEE BELOW A [...] THE DIAGNOSIS OF DISEASE. Testing performed at [facility], [address] | | | [address] [facility] [address] COMMENT | | | SEE BELOW THIS TEST WAS DEVELOPED AND ITS | | | PERFORMANCE CHARACTERISTICS DETERMINED BY [facility]. THE U.S. FOOD AND | | | DRUG ADMINISTRATION (FDA) HAS NOT APPROVED OR CLEARED THIS TEST. | | | HOWEVER, FDA APPROVAL OR CLEARANCE IS CURRENTLY NOT REQUIRED FOR | | | CLINICAL USE OF THIS TEST. THE RESULTS ARE NOT INTENDED TO BE USED | | | THE SOLE MEANS FOR CLINICAL DIAGNOSIS OR PATIENT MANAGEMENT | | | DECISIONS. [facility] IS AUTHORIZED UNDER CLINICAL LABORATORY IMPROVEMENT | | | AMENDMENTS (CLIA) TO PERFORM HIGH-COMPLEXITY TESTING. Testing | | | performed at [facility], [address] [facility] [address] | | + + + + +---------+ [...] EXTERNAL LAB | | Testing performed at [facility];[address] [place] [address];[place] [address] APPEARANCE | | | CLEAR Testing performed at | | | [facility];[address];[place] [address] Tube Number, CSF | | | 3 Testing performed at [facility];[address];[place] [address] CSF RBC | | | 7 High Testing performed at [facility];[address];[place] [address] CSF WBC | | | 2 Testing performed at [facility], [place] | | | [address] | | + + + + +---------+ [...] | EXTERNAL LAB | | performed at [place] [id number] | | + + + + +---------+ [...] EXTERNAL LAB | | Testing performed at [facility];[address] [place] [address];[place] [address] | | + + + + +---------+ [...] EXTERNAL LAB | | Testing performed at [facility];[address] [place] [address];[place] [address] | | + + + + +---------+ [...] LAB | | | | performed at [facility];[address] | | | | | | [address];[place], [place] | | | | | | [address] | | | | + + + [...] | | | | | DETERMINED BY [facility] | | | | | | LABORATORIES.SEE | | | | | | COMPLIANCE STATEMENT B: | | | | | | [employer]/CSTesting | | | | | | performed at [facility], [address] | | | | | | [facility] | | | | | | [facility] [address] | | | | + + + [...] LAB | | | | performed at [facility] | | | | | | [place], [address] | | | | [address], [place] | | | | | | [address] | | | | + + + [...] | | | | | performed at [facility] | | | | | | [place], [address] | | | | | | [facility] [place] | | | | | | [address] | | | | + + + [...] mental status, | | | transferred from [facility] on November 05, 2014. PRE | [...] | | | possibility of "sound alike" furniture technician errors, addition and/or | | | deletions may occur. If there is any question about this report | | | please contact the author of the report. | | + + + + + | Procedure Note | + + | Tez Roper Conversion - 11/24/2018 6:38 AM PDT PROCEDUREDiagnostic lumbar puncture | | under fluoroscopic guidance. HISTORYPatient with history of sepsis and altered mental | | status, transferred from [facility] on November 05, 2014. PRE PROCEDURAL [...] The possibility of "sound alike" | | furniture technician errors, addition and/or deletions may occur. If [...] system. The possibility of "sound a like" furniture technician errors, addition and/or deletions may occur. If [...] IMMUNOSUPPRESSION. Testing | | | performed at [facility], [address] [place] [address] | | | [place] [address] | | + + + + +---------+ [...] | | | THIS TEST IN THE [facility] | | | | | | LABORATORY TEST | | | | | | DIRECTORY([employer]).T | | | | | | esting performed at | | | | | | [facility], [address], | | | | | | [facility] [address] | | | | + + + + + + | IGG, CSF | 5.1Comment: Testing | 0.0 - 6.0 mg/dL | EXTERNAL | | | | performed at [facility], [address] | | LAB | | | | [facility] | | | | | | [facility] [address] | | | | + + + + + + | Albumin, | 32Comment: Testing | 0 - 35 mg/dL | EXTERNAL | | | CSF | performed at [facility], [address] | | LAB | | | | [facility] | | | | | | [facility] [address] | | | | + + + + + + | Albumin | 11.7 (H)Comment: Testing | 0.0 - 9.0 ratio | EXTERNAL | | | Index | performed at [facility], [address] | | LAB | | | | [facility] | | | | | | [facility] [address] | | | | + + + + + + | CSF | 0.16Comment: Testing | 0.09 - 0.25 | EXTERNAL | | | IgG/Albumin | performed at [facility], [address] | ratio | LAB | | | Ratio | [facility] | | | | | | [facility] [address] | | | | + + + + + + | IgG Index | 0.46Comment: Testing | 0.28 - 0.66 | EXTERNAL | | | | performed at [facility], [address] | ratio | LAB | | | | [facility] | | | | | | [facility] [address] | | | | + + + + + + | CSF | NEGATIVEComment: | | EXTERNAL | | | Oligoclonal | REFERENCE RANGE: | | LAB | | | Bands | NEGATIVETesting | | | | | | performed at [facility], [address] | | | | | | [address] | | | | | | [facility] [address] | | | | + + [...] | | | | | [facility] | | | | | | [facility] [address] | | | | + + + + + + | IGG SYNTH | <0.0 (L)Comment: | 0.0 - 8.0 mg/d | EXTERNAL | | | RATE | REFERENCE RANGE: | | LAB | | | | <=8.0Testing performed | | | | | | at [facility], [address] | | | | | | [facility], [place] | | | | | | [address] | | | | + + + + + + | Albumin | 2,730 (L)Comment: | 3,500 - 5,200 | EXTERNAL | | | | Testing performed at | mg/dL | LAB | | | | [facility], [address] [facility], | | | | | | [place] [address] | | | | + + + [...] | Testing performed | | | at [facility], [address] [place] [address] | | + + + + +---------+ [...] GROWTH | | | Testing performed at [facility], | | | [address] [place] [address] | | + + + + +---------+ [...] | | | | | [place] [address] | | | | + + + + + + | Clarity, | CLEARComment: Testing | | EXTERNAL | | | Urine | performed at [facility], [address] | | LAB | | | | [address], | | | | | | [place] [address] | | | | + + + + + + | Specific | 1.014Comment: Testing | 1.002 - 1.030 | EXTERNAL | | | [place], | performed at [facility], [address] | | LAB | | | Urine | [address], | | | | | | [place] [address] | | | | + + + + + + | Leukocyte | TRACE (A)Comment: | | EXTERNAL | | | Esterase, | Testing performed at | | LAB | | | Urine | [facility], [address] | | | | | | [place] | | | | | | [address] | | | | + + + + + + | Nitrite, | NEGATIVEComment: Testing | | EXTERNAL | | | Urine | performed at [facility], [address] | | LAB | | | | [address] [place], | | | | | | [place] [address] | | | | + + + + + + | Urobilinoge | 0.2Comment: Testing | mg/dL | EXTERNAL | | | n, Urine | performed at [facility], [address] | | LAB | | | | [address] [place], | | | | | | [place] [address] | | | | + + + + + + | Protein, | NEGATIVEComment: Testing | mg/dL | EXTERNAL | | | Urine | performed at [facility], [address] | | LAB | | | | [address], | | | | | | [place] [address] | | | | + + + + + + | pH, Urine | 7.0Comment: Testing | 5.0 - 8.0 | EXTERNAL | | | | performed at [facility], [address] | | LAB | | | | [address] [place], | | | | | | [place] [address] | | | | + + + + + + | Blood, | SMALL (A)Comment: | | EXTERNAL | | | Urine | Testing performed at | | LAB | | | | [facility], [address] [facility] | | | | | | [place] | | | | | | [address] | | | | + + + + + + | Ketones | NEGATIVEComment: Testing | mg/dL | EXTERNAL | | | | performed at [facility], [address] | | LAB | | | | [address] [place], | | | | | | [place] [address] | | | | + + + + + + | Bilirubin, | NEGATIVEComment: Testing | | EXTERNAL | | | Urine | performed at [facility], [address] | | LAB | | | | [address], | | | | | | [place] [address] | | | | + + + [...] | | | | | [place] [address] | | | | + + + + + + | RBC, UA | 6-10Comment: Testing | 0 - 5 /hpf | EXTERNAL | | | | performed at [facility], [address] | | LAB | | | | [address], | | | | | | [place] [address] | | | | + + + + + + | Bacteria, | NONE SEENComment: | | EXTERNAL | | | UA | CULTURE TO FOLLOWTesting | | LAB | | | | performed at [facility], [address] | | | | | | [address], | | | | | | [place] [address] | | | | + + + + + + | Epithelial | 26-50Comment: Testing | /lpf | EXTERNAL | | | Cells | performed at [facility], [address] | | LAB | | | | [address], | | | | | | [place] [address] | | | | + + + + + + | HYALINE | 0-2Comment: Testing | | EXTERNAL | | | CASTS UA | performed at [facility], [address] | | LAB | | | | [address], | | | | | | [place] [address] | | | | + + + [...] SPECIAL | EXTERNAL LAB | | [facility] | | | Testing performed at [facility];[address];[place] [address] CULTURE | | | NO GROWTH | | | Testing performed at [facility], [address] [place], [place] | | | [address] | | + + + + +---------+ [...] LAC | | | Testing performed at [facility];[address] | | | [facility];[place] [address] CULTURE | | | NO GROWTH | | | Testing performed at [facility], [address] [facility], [place], [place] | | | [address] | | + + + + +---------+ [...] | | | | | performed at [facility];[address] | | | | | | [address] [facility];[place], [place] | | | | | | [address] | | | | + + + [...] | | | | [facility], [address] [facility] | | | | | | [place] | | | | | | [address] | | | | + + + + + + | Non- | 4.38Comment: Testing | 3.70 - 5.10 | EXTERNAL | | | Red Blood | performed at [facility], [address] | M/uL | LAB | | | Cells | [place], | | | | | Counted | [place] [address] | | | | + + + + + + | Hemoglobin | 13.1Comment: Testing | 11.3 - 15.5 | EXTERNAL | | | | performed at [facility], [address] | g/dL | LAB | | | | [address], | | | | | | [place] [address] | | | | + + + + + + | Hematocrit, | 41.2Comment: Testing | 34.0 - 46.0 % | EXTERNAL | | | POC | performed at [facility], [address] | | LAB | | | | [place], | | | | | | [place] [address] | | | | + + + + + + | MCV | 94.0Comment: Testing | 80.0 - 100.0 fl | EXTERNAL | | | | performed at [facility], [address] | | LAB | | | | [place] [place], | | | | | | [place] [address] | | | | + + + + + + | MCH | 29.9Comment: Testing | 27.0 - 34.0 pg | EXTERNAL | | | | performed at [facility], [address] | | LAB | | | [address], | | | | | | [place] [address] | | | | + + + + + + | MCHC | 31.8 (L)Comment: Testing | 32.0 - 35.5 | EXTERNAL | | | | performed at [facility], [address] | g/dL | LAB | | | | [address], | | | | | | [place] [address] | | | | + + + + + + | RDW-CV | 59.5 (H)Comment: Testing | 37 - 53 fl | EXTERNAL | | | | performed at [facility], [address] | | LAB | | | | [address], | | | | | | [place] [address] | | | | + + + + + + | Platelet | 436 (H)Comment: Testing | 150 - 400 K/uL | EXTERNAL | | | Count | performed at [facility], [address] | | LAB | | | Plasma | [address], | | | | | | [place] [address] | | | | + + + + + + | MPV | 8.2Comment: Testing | fl | EXTERNAL | | | | performed at [facility], [address] | | LAB | | | | [address], | | | | | | [place], [place] [address] | | | | + + + + + + | Differentia | MANUALComment: Testing | | EXTERNAL | | | l Type | performed at [facility], [address] | | LAB | | | | [address], | | | | | | [place], [place] [address] | | | | + + + + + + | Segmented | 69Comment: Testing | % | EXTERNAL | | | Neutrophils | performed at [facility], [address] | | LAB | | | Manual | [address], | | | | | | [place], [place] [address] | | | | + + + + + + | Lymphocytes | 17Comment: Testing | % | EXTERNAL | | | Manual | performed at [facility], [address] | | LAB | | | | [address], | | | | | | [place] [address] | | | | + + + + + + | Monocytes | 14Comment: Testing | % | EXTERNAL | | | Manual | performed at [facility], [address] | | LAB | | | | [address] [place], | | | | | | [place] [address] | | | | + + + + + + | Absolute | 17.00 (H)Comment: | 1.90 - 7.40 | EXTERNAL | | | Neutrophils | Testing performed at | K/uL | LAB | | | | [facility], [address] [facility] | | | | | | [place] | | | | | | [address] | | | | + + + + + + | Absolute | 4.19 (H)Comment: Testing | 1.00 - 3.90 | EXTERNAL | | | Lymphocytes | performed at [facility], [address] | K/uL | LAB | | | | [address] [place], | | | | | | [place] [address] | | | | + + + + + + | Absolute | 3.45 (H)Comment: Testing | 0.00 - 0.80 | EXTERNAL | | | Monocytes | performed at [facility], [address] | K/uL | LAB | | | | [address], | | | | | | [place] [address] | | | | + + + + + + | RBC | 2+Comment: ANISONORMAL | | EXTERNAL | | | Morphology | PLT MORPHTesting | | LAB | | | | performed at [facility], [address] | | | [address], | | | | | | [place] [address] | | | | | | | [...] EXTERNAL | | | | performed at [facility], [address] | | LAB | | | | [place], | | | | | | [place] [address] | | | | + + + [...] EXTERNAL | | | | performed at [facility], [address] | | LAB | | | | [address] [place], | | | | | | [place] [address] | | | | + + + [...] | | | | | [place] [address] | | | | + + + + + + | K | 3.5Comment: Testing | 3.5 - 4.9 | EXTERNAL | | | | performed at [facility], [address] | mmol/L | LAB | | | | [address], | | | | | | [place] [address] | | | | + + + + + + | Cl | 95 (L)Comment: Testing | 99 - 109 mmol/L | EXTERNAL | | | | performed at [facility], [address] | | LAB | | | | [address], | | | | | | [place] [address] | | | | + + + + + + | CO2 | 25Comment: Testing | 23 - 32 mmol/L | EXTERNAL | | | | performed at [facility], [address] | | LAB | | | | [address], | | | | | | [place] [address] | | | | + + + + + + | Anion Gap | 12Comment: Testing | 5 - 20 mmol/L | EXTERNAL | | | | performed at [facility], [address] | | LAB | | | | [address], | | | | | | [place] [address] | | | | + + + + + + | Glucose, | 120 (H)Comment: Testing | 65 - 99 mg/dL | EXTERNAL | | | Fasting | performed at [facility], [address] | | LAB | | | | [address], | | | | | | [place] [address] | | | | + + + + + + | BUN | 8Comment: Testing | 8 - 25 mg/dL | EXTERNAL | | | | performed at [facility], [address] | | LAB | | | | [address] [place], | | | | | | [place] [address] | | | | + + + + + + | Creatinine | 0.45 (L)Comment: Testing | 0.50 - 1.00 | EXTERNAL | | | | performed at [facility], [address] | mg/dL | LAB | | | | [address], | | | | | | [place] [address] | | | | + + + + + + | BUN/Creatin | 18Comment: Testing | | EXTERNAL | | | ine Ratio | performed at [facility], [address] | | LAB | | | | [address], | | | | | | [place] [address] | | | | + + + + + + | Calcium | 8.7Comment: Testing | 8.5 - 10.5 | EXTERNAL | | | | performed at [facility], [address] | mg/dL | LAB | | | | [address], | | | | | | [place] [address] | | | | + + + + + + | Protein, | 6.8Comment: Testing | 6.3 - 8.2 g/dL | EXTERNAL | | | Total | performed at [facility], [address] | | LAB | | | | [address], | | | | | | [place] [address] | | | | + + + + + + | Albumin | 3.1 (L)Comment: Testing | 3.6 - 5.0 g/dL | EXTERNAL | | | | performed at [facility], [address] | | LAB | | | | [address], | | | | | | [place] [address] | | | | + + + [...] | | | | | [place] [address] | | | | + + + + + + | Bilirubin | 0.8Comment: Testing | 0.1 - 1.5 mg/dL | EXTERNAL | | | Total | performed at [facility], [address] | | LAB | | | | [address], | | | | | | [place] [address] | | | | + + + + + + | ALP, | 214 (H)Comment: Testing | 35 - 115 U/L | EXTERNAL | | | External | performed at [facility], [address] | | LAB | | | | [address], | | | | | | [place] [address] | | | | + + + + + + | AST | 26Comment: Testing | 10 - 45 U/L | EXTERNAL | | | | performed at [facility], [address] | | LAB | | | | [address], | | | | | | [place] [address] | | | | + + + + + + | ALT | 29Comment: Testing | 10 - 65 U/L | EXTERNAL | | | | performed at [facility], [address] | | LAB | | | | [address], | | | | | | [place] [address] | | | | + + + [...] | | | | | | at [facility], [address] | | | | | | [address], | | | | | | [place] [address] | | | | + + + [...] K/uL | LAB | | | | [facility];[address] | | [address];[place] [address] | | | | + + + + + -+ | Non- | 4.36Comment: Testing | 3.70 - 5.10 | EXTERNAL | | | Red Blood | performed at [facility];[address] | M/uL | LAB | | | Cells | [address];[place] | | | | | Counted | [address] | | | | + + + + + -+ | Hemoglobin | 13.1Comment: Testing | 11.3 - 15.5 | EXTERNAL | | | | performed at [facility];[address] | g/dL | LAB | | | | [address];[place] | | | | | | [address] | | | | + + + + + -+ | Hematocrit, | 40.2Comment: Testing | 34.0 - 46.0 % | EXTERNAL | | | POC | performed at [facility];[address] | | LAB | | | | [address];[place] | | | | | | [address] | | | | + + + + + -+ | MCV | 92.3Comment: Testing | 80.0 - 100.0 fl | EXTERNAL | | | | performed at [facility];[address] | | LAB | | | | [address];[place] | | | | | | [address] | | | | + + + + + -+ | MCH | 30.2Comment: Testing | 27.0 - 34.0 pg | EXTERNAL | | | | performed at [facility];[address] | | LAB | | | | [address];[place] | | | | | | [address] | | | | + + + + + -+ | MCHC | 32.7Comment: Testing | 32.0 - 35.5 | EXTERNAL | | | | performed at [facility];[address] | g/dL | LAB | | | | [address];[place] | | | | | | [address] | | | | + + + + + -+ | RDW-CV | 59.5 (H)Comment: Testing | 37 - 53 fl | EXTERNAL | | | | performed at [facility];[address] | | LAB | | | | [address];[place] | | | | | | [address] | | | | + + + + + -+ | Platelet | 424 (H)Comment: Testing | 150 - 400 K/uL | EXTERNAL | | | Count | performed at [facility];[address] | | LAB | | | Plasma | [address];[place] | | | | | | [address] | | | | + + + + + -+ | MPV | 7.3Comment: Testing | fl | EXTERNAL | | | | performed at [facility];[address] | | LAB | | | | [address];[place] | | | | | | [address] | | | | + + + + + -+ | Differentia | AUTOMATEDComment: | | EXTERNAL | | | l Type | Testing performed at | | LAB | | | | [facility];[address];[place] [address] | | | | + + + + + -+ | % Segmented | 69.52Comment: Testing | % | EXTERNAL | | | | performed at [facility];[address] | | LAB | | | Neutrophils | [address];[place] | | | | | | [address] | | | | + + + + + -+ | % | 17.38Comment: Testing | % | EXTERNAL | | | Lymphocytes | performed at [facility];[address] | | LAB | | | | [address];[place] | | | | | | [address] | | | | + + + + + -+ | % Monocytes | 11.50Comment: Testing | % | EXTERNAL | | | | performed at [facility];[address] | | LAB | | | | [address];[place] | | | | | | [address] | | | | + + + + + -+ | % | 0.84Comment: Testing | % | EXTERNAL | | | Eosinophils | performed at [facility];[address] | | LAB | | | | [address];[place] | | | | | | [address] | | | | + + + + + -+ | % Basophils | 0.76Comment: Testing | % | EXTERNAL | | | | performed at [facility];[address] | | LAB | | | | [address];[place] | | | | | | [address] | | | | + + + + + -+ | Absolute | 17.37 (H)Comment: | 1.90 - 7.40 | EXTERNAL | | | Segmented | Testing performed at | K/uL | LAB | | | Neutrophils | [facility];[address];[place] [address] | | | | + + + + + -+ | Absolute | 4.34 (H)Comment: Testing | 1.00 - 3.90 | EXTERNAL | | | Lymphocytes | performed at [facility];[address] | K/uL | LAB | | | | [address];[place] | | | | | | [address] | | | | + + + + + -+ | Absolute | 2.87 (H)Comment: Testing | 0.00 - 0.80 | EXTERNAL | | | Monocytes | performed at [facility];[address] | K/uL | LAB | | | | [address];[place] | | | | | | [address] | | | | + + + + + -+ | Absolute | 0.21Comment: Testing | 0.00 - 0.50 | EXTERNAL | | | Eosinophils | performed at [facility];888 | K/uL | LAB | | | | [address];[place] | | | | | | [address] | | | | + + + + + -+ | Absolute | 0.19 (H)Comment: Testing | 0.00 - 0.10 | EXTERNAL | | | Basophils | performed at [facility];888 | K/uL | LAB | | | | [address];[place] | | | | | | [address] | | | | + + + + + -+ | RBC | 1+Comment: ANISONORMAL | | EXTERNAL | | | Morphology | PLT MORPHTesting | | LAB | | | | performed at [facility];888 | | | | | | [address];[place] | | | | | | [address] | | | | | | | | | | + + + + + -+ | Na | 133 (L)Comment: Testing | 135 - 143 | EXTERNAL | | | | performed at [facility];888 | mmol/L | LAB | | | | [address];[place] | | | | | | [address] | | | | + + + + + -+ | K | 3.6Comment: Testing | 3.5 - 4.9 | EXTERNAL | | | | performed at [facility];888 | mmol/L | LAB | | | | [address];[place] | | | | | | [id number] | | | | + + + + + -+ | Cl | 95 (L)Comment: Testing | 99 - 109 mmol/L | EXTERNAL | | | | performed at [facility];888 | | LAB | | | | [address];[place] | | | | | | [address] | | | | + + + + + -+ | CO2 | 28Comment: Testing | 23 - 32 mmol/L | EXTERNAL | | | | performed at [facility];888 | | LAB | | | | [address];[place] | | | | | | [address] | | | | + + + + + -+ | Anion Gap | 13Comment: Testing | 5 - 20 mmol/L | EXTERNAL | | | | performed at [facility];888 | | LAB | | | | [address];[place] | | | | | | [address] | | | | + + + + + -+ | Glucose, | 123 (H)Comment: Testing | 65 - 99 mg/dL | EXTERNAL | | | Fasting | performed at [facility];888 | | LAB | | | | [address];[place] | | | | | | [address] | | | | + + + + + -+ | BUN | 7 (L)Comment: Testing | 8 - 25 mg/dL | EXTERNAL | | | | performed at [facility];888 | | LAB | | | | [address];[place] | | | | | | [address] | | | | + + + + + -+ | Creatinine | 0.76Comment: Testing | 0.50 - 1.00 | EXTERNAL | | | | performed at [facility];888 | mg/dL | LAB | | | | [address];[place] | | | | | | [address] | | | | + + + + + -+ | BUN/Creatin | 10Comment: Testing | | EXTERNAL | | | ine Ratio | performed at [facility];888 | | LAB | | | | [address];[place] | | | | | | [address] | | | | + + + + + -+ | Calcium | 8.2 (L)Comment: Testing | 8.5 - 10.5 | EXTERNAL | | | | performed at [facility];888 | mg/dL | LAB | | | | [address];[place] | | | | | | [address] | | | | + + + + + -+ | Protein, | 6.6Comment: Testing | 6.3 - 8.2 g/dL | EXTERNAL | | | Total | performed at [facility];888 | | LAB | | | | [address];[place] | | | | | | [address] | | | | + + + + + -+ | Albumin | 2.7 (L)Comment: Testing | 3.6 - 5.0 g/dL | EXTERNAL | | | | performed at [facility];888 | | LAB | | | | [address];[place] | | | | | | [address] | | | | + + + + + -+ | Globulin | 4.0Comment: Testing | 1.3 - 4.9 g/dL | EXTERNAL | | | | performed at [facility];888 | | LAB | | | | [address];[place] | | | | | | [address] | | | | + + + + + -+ | A/G Ratio | 0.7 (L)Comment: Testing | 1.0 - 2.4 | EXTERNAL | | | | performed at [facility];[address] | | LAB | | | | [address];[place] | | | | | | [address] | | | | + + + + + -+ | Bilirubin | 0.7Comment: Testing | 0.1 - 1.5 mg/dL | EXTERNAL | | | Total | performed at [facility];[address] | | LAB | | | | [address];[place] | | | | | | [address] | | | | + + + + + -+ | ALP, | 251 (H)Comment: Testing | 35 - 115 U/L | EXTERNAL | | | External | performed at [facility];[address] | | LAB | | | | [address];[place] | | | | | | [address] | | | | + + + + + -+ | AST | 33Comment: Testing | 10 - 45 U/L | EXTERNAL | | | | performed at [facility];888 | | LAB | | | | [address];[place] | | | | | | [address] | | | | + + + + + -+ | ALT | 36Comment: Testing | 10 - 65 U/L | EXTERNAL | | | | performed at [facility];888 | | LAB | | | | [...] | | | | | | at [facility];[address] | | | | | | [address];[place] [address] | | | | + + + + + -+ | CK, Total | 50Comment: Testing | 30 - 240 U/L | EXTERNAL | | | | performed at [facility];[address] | | LAB | | | | [address];[place] | | | | | | [address] | | | | + + + [...] | | | | | performed at [facility];[address] | | | | | | [address];[place] | | | | | | [address] | | | | + + + + + -+ | aPTT, | 33 (H)Comment: Testing | 23 - 32 seconds | EXTERNAL | | | Patient | performed at [facility];[address] | | LAB | | | | [address];[place] | | | | | | [address] | | | | + + + + + -+ | CK-MB | 0.6Comment: Testing | 0.5 - 3.6 ng/mL | EXTERNAL | | | | performed at [facility];888 | | LAB | | | | [address];[place], [place] | | | | | | [address] | | | | + + + [...] Tez Roper - 11/24/2018 6:38 AM PDT HISTORY:Altered mental [...]
--- OUTSIDE RECORDS SUMMARY | ~2019-11-05 | XMS | Encounter Summary ---
Demographics + + + | Address | [address] | | | [place] [address] | + + + | Home Phone [...] Team Providers + +------+ + | Care Wig Dresser Name | Role | Phone | + +------+ + PCP | Unavailable | + +------+ + Encounter Details +--------+ + + + + | Date | Type | Department | Care Team | Description | +--------+ + + + + | 02/11/ | Hospital | [facility] | Veena Tobar, | | | 2017 - | Encounter | [facility] | MD [address] | | | | | CARE FLO[address] | [place] [address] | | | 02/15/ | | [address] | [phone] | | | 2017 | | [place], [place] | | | | | | [address] | | | | | | [phone] | | | +--------+ + + + [...] Date of Service: 02/15/17 1029 Status: Signed Hard Rock Drill Operator: Aguila Bernard DO (Physician) [facility] Service: Hospitalist Discharge Summary Date of [...] levofloxacin + IV fluid. Cultures obtained at [facility] showed E coli s usceptible to [...] Status: DNR/DNI Follow up: Alireza Krishna MD [address], [address] [id number] Enrique Bocanegra MD [address] [facility] [address] Medication List START taking these medications [...] Date of Service: 02/15/17 1247 Status: Signed Hard Rock Drill Operator: Gayatri Carrasquillo RN (Registered Nurse) Patient d/c instructions reviewed with patient. [facility] [place] per pt request. Awaiting [facility] to meet with patient prior to d/c. Spouse to provide trans portation. Gayatri Carrasquillo RN ICongenaro roshan Transaction, Provider Unknown - 02/15/2017 11:03 AM PST Case Management by Morgan Richards RN at 02/15/17 1103 Author: Morgan Richards RN Service: (none) Author Type: Registered Nurse Filed: 02/15/17 1108 Date of Service: 02/15/17 1103 Status: Signed Hard Rock Drill Operator: Morgan Richards RN (Registered Nurse) 02/15/17 1100 [...] Date of Service: 02/15/17 0809 Status: Addendum Hard Rock Drill Operator: Giulia Albert PT (Physical Therapist) Related Notes: [...] wheeled (bedside commode) Prior Function Level of Leon Independent with functional mobility;Independent with ADLs;Assist wi [...] Response to Education: stated understanding Low - 36312 Moderate - 18319 High - 10483 History no personal factors &/or comorbidities Examination 1-2 elements Clinical Presentation stable Clinical Decision Making Complexity: Low 12514 Giulia Albert, PT 02/15/2017 12:11 PM Erin Roca DO - 02/15/2017 6:38 AM PSTFormatting of this note might be different from the briana kate. Progress Notes by Erin Turner DO at 02/15/17637 Author: Erin Turner DO Service: (none) Author Type: Physician Filed: 02/15/1732 Date of Service: 02/15/17637 Status: Signed Hard Rock Drill Operator: Erin Turner DO (Physician) [facility] Service: Infectious Disease Progress Note Hospital [...] presented to the emergency d epartment at [facility] in [place]. Workup there did show significant pyuria, and [...] >60 02/15/2017 Microbiology: Urine culture collected at [facility] has greater than 100,000 colo nies of [...] levofloxacin day #5 of 14. Crohn's disease ([facility]) (04/12/2014) [...] Management by Morgan Richards RN at 02/14/17 0607 Author: Morgan Richards RN Service: (none) Author Type: Registered Nurse Filed: 02/14/17 4161 Date of Service: 02/14/17 2998 Status: Signed Hard Rock Drill Operator: Morgan Richards RN (Registered Nurse) 02/14/17 1500 Discharge Planning Evaluation Admitting Diagnosis Sepsis due to UTI Anticipated Disposition Facility Type Home;Home infusion Home Infusion & Tube/Enteral Feedings [facility] I spoke with Rhianna from [facility] to follow-up on Pt. Pt. was previously established wit [facility] in [place]. IBroAguila valdez DO - 02/14/2017 3:38 PM PSTFormatting of this note might be different from the briana ginal. Progress Notes by Aguila Bernard DO at 02/14/17 5124 Author: Aguila Bernard DO Service: Hospitalist Author Type: Physician Filed: 02/14/17 8047 Date of Service: 02/14/17 1272 Status: Signed Hard Rock Drill Operator: Aguila Benrard DO (Physician) PROGRESS NOTE 02/14/2017 for Smita [...] 153 Date of Service: 02/14/171529 Status: Signed Hard Rock Drill Operator: Yusra Oconnor PT (Physical Therapist) 02/14/17 153 [...] Date of Service: 02/14/17 1146 Status: Signed Hard Rock Drill Operator: Yusra Oconnor PT (Physical Therapist) 02/14/17 1146 PT Last Visit PT Received On 02/14/17 Reason for Treatment Deconditioning (sepsis) Requires PT Follow Up Unavailable Other Comments Comments SHOE SINGER present administerring bed bath; RN requests PT [...] 02/14/17830 Date of Service: 02/14/17830 Status: Signed Hard Rock Drill Operator: Latha Hall RPH (Pharmacist) TPN notes: Potassium [...] 02/14/1725 Date of Service: 02/14/17641 Status: Signed Hard Rock Drill Operator: Erin Turner DO (Physician) [facility] Service: Infectious Disease Progress Note Hospital [...] presented to the emergency d epartment at [facility] in [place]. Workup there did show significant pyuria, and [...] >60 02/14/2017 Microbiology: Urine culture collected at [facility] has greater than 100,000 colo nies of [...] levofloxacin. Await final urine culture results from [facility] outside hospital. Unfortunately, no blood [...] Date of Service: 02/14/17 0506 Status: Signed Hard Rock Drill Operator: Tanika Alaniz RN (Registered Nurse) Pt A+Ox4, VSS. Pt continued to c/o generalized body pain 11/18, received morphine q3h throug hout shift. Awaiting blood and urine cultures from [facility]. Tanika Alaniz RN IAyee, Makenzie Arshad MD - 02/13/2017 1:16 PM PST Progress Notes by Makenzie Raymond MD at 02/13/17 1316 Author: Makenzie Raymond MD Service: (none) Author Type: Physician Filed: 02/13/17 1734 Date of Service: 02/13/17 1316 Status: Addendum Hard Rock Drill Operator: Makenzie Raymond MD (Physician) Related Notes: Original Note by Mkaenzie Raymond MD (Physician) filed at 02/13/[address] [facility] Service: Hospitalist Progress Note Pt: Smita Willingham AGE/SEX: 61 y.o. female : 1955 ROOM: [address] [place] [id number] REQUESTING PROVIDER: Makenzie Raymond MD TODAY'S DATE: [...] no guarding Or rebound EXt no edema REHABILITATION SERVICES MANAGER alert no focality LABS: Recent Labs [...] hours. No results for input(s): PHART, PO2ART, EBK7HJL, Z8LLTOIV, BEART in the last 168 hours. Recent [...] BC f/ up were send out from [facility] ER . IV fluids on [...] 02/13/1756 Date of Service: 02/13/17827 Status: Signed Hard Rock Drill Operator: Erin Turner DO (Physician) [facility] Service: Infectious Disease Progress Note Hospital [...] presented to the emergency d epartment at [facility] in [place]. Workup there did show significant pyuria, and [...] culture and blood cultures were collected at [facility] jesse or to transfer. Updated reports [...] 02/13/17728 Date of Service: 02/13/17728 Status: Signed Hard Rock Drill Operator: Latha Hall RPH (Pharmacist) TPN notes: Blood [...] 02/13/17430 Date of Service: 02/13/17427 Status: Signed Hard Rock Drill Operator: Tanika Alaniz RN (Registered Nurse) Pt A+Ox4, but weak and lethargic. VSS. Morphine x3 given for generalized pain. TPN running through port. Pt incontinent of urine and sometimes stool. Tanika Alaniz, RN onver roshan Main, Provider Unknown - 02/12/2017 3:59 PM PDT Case Management by Terrance Madsen MS, FINANCIAL WRITER at 02/12/17 5376 Author: Terrance Madsen MS, FINANCIAL WRITER Service: (none) Author Type: Hospital Secretary Filed: 02/12/17 5490 Date of Service: 02/12/17 3743 Status: Signed Hard Rock Drill Operator: Terrance Madsen MS, MSW (Hospital Secretary) 02/12/17 1382 Discharge Planning Evaluation Admitting Diagnosis Sepsis due [...] of care post d/c. Pt resides [facility] with spouse Kole in [facility]. Pt does not drive since she has been ill., her s pouse is able to drive and can come see her. Pt reports a significant history of feeling ill and not be at home lately. She Power of Mica Plate Layer No Anticipated Discharge Plan Post Acute Care [...] who presents to the Emergency Department in [facility]. She f ollows up with Dr. [...] ER. She was thereafter transferred over to [facility] for further care. Patient's PCP is: No primary care provider on file. - Dr. Fernandes. Patient's insurance: medicare, [employer] care Coverage concerns:none reported Medication coverage/concerns: none Community resources utilized / needed: uses [place] [facility], [facility] [place] [...] 02/12/171406 Date of Service: 02/12/171406 Status: Signed Hard Rock Drill Operator: Latha Hall RPH (Pharmacist) Pharmacy Consult for INITIATION of Parenteral Nutrition Smita Willingham 61 y.o. female Ht Readings from Last 1 Encounters: 02/11/17 1.727 m (5' 8") Wt Readings from Last 1 Encounters: 02/11/17 74.5 kg (164 lb 4.8 oz) Brick Pitcher recommendations: Recommendations Recommended parenteral nutritional needs for [...] Service: Pharmacy Author Type: Pharmacist Filed: 02/12/17 0697 Date of Service: 02/12/17 1224 Status: Signed Hard Rock Drill Operator: Sofía Chamberlain RPH (Pharmacist) Clinical Pharmacy Note: [...] Notes by Sanjuana Spivey RD at 02/12/17 5221 Author: Sanjuana Spivey RD Service: (none) Author Type: Registered Dietitian Filed: 02/12/17 1142 Date of Service: 02/12/17 1140 Status: Signed Hard Rock Drill Operator: Sanjuana Spivey RD (Registered Dietitian) 02/12/17 1128 [...] Estimated Energy Needs Total Energy Estimated Needs 7647-3853 kcal Method for Estimating Needs 28-32 kcal/kg [...] Date of Service: 02/12/17 1122 Status: Addendum Hard Rock Drill Operator: Makenzie Raymond MD (Physician) Related Notes: Original Note by Makenzie Raymond MD (Physician) filed at 02/12/[address] [facility] Service: Hospitalist Progress Note Pt: Smita Willingham AGE/SEX: 61 y.o. female : 1955 ROOM: [address] [place] [address] REQUESTING PROVIDER: Makenzie Raymond MD TODAY'S DATE: [...] no guarding Or rebound EXt no edema REHABILITATION SERVICES MANAGER alert no focality LABS: Recent Labs [...] hours. No results for input(s): PHART, PO2ART, AMB2CIF, U1VYLRTA, BEART in the last 168 hours. Recent [...] BC f/ up send out from [facility] ER C.Diff was negative delirium [...] 02/12/17523 Date of Service: 02/12/17518 Status: Signed Hard Rock Drill Operator: Tanika Alaniz RN (Registered Nurse) Pt received this shift from [facility] with UTI and complex GI [...] 02/11/172207 Date of Service: 02/11/172153 Status: Signed Hard Rock Drill Operator: Veena Tobar MD (Physician) [facility] Service: Hospitalist Admission History & Physical [...] who presents to the Emergency Department in [place] with increasi ng nausea, vomiting and weakness. [...] SETON PLACEMENT; Surgeon: Enrique Bocanegra MD; Location: [facility]; Service: General; Laterality: N/A; APPENDECTOMY CHOLECYSTECTOMY ESOPHAGOGASTRODUODENOSCOPY Left 08/06/2015 Procedure: ESOPHAGOGASTRODUODENOSCOPY; Surgeon: Sheng Rios MD; Location: [facility]; Service: Gastroenterology; Laterality: Left; ESOPHAGOGASTRODUODENOSCOPY N/A 04/21/2014 Procedure: ESOPHAGOGASTRODUODENOSCOPY; Surgeon: Bony Petty MD; Location: [facility]; Service: Gastroenterology; Laterality: N/A; HYSTERECTOMY LAPAROTOMY N/A 04/23/2014 Procedure: EXPLORATION - LAPAROTOMY; Surgeon: Bogdan Moser DO; Location: [facility] R; Service: General; Laterality: N/A; LYSIS [...] was already given in the ER in [place]. Sodium level is 133, potassium 4.6, chloride [...] Urine culture and blood cultures done at [place] to be followed. For now as per [...] Consult* by Sanjuana Spivey RD at 02/12/17 7440 Author: Sanjuana Spivey RD Service: (none) Author Type: Registered Dietitian Filed: 02/12/17 6617 Date of Service: 11/04/17 1433 Status: Signed Hard Rock Drill Operator: Sanjuana Spivey RD (Registered Dietitian) 02/12/17 1429 Subjective Timepoint Follow up (consult) Pt c/o Consult received from pharmacy, pharmacy received information regarding home TPN. Diet Experience Home Nutrition Support Per pharmacy, home TPN is provided by [facility]. Home TPN consists of 100 g dextrose, [...] Date of Service: 02/12/17 1223 Status: Signed Hard Rock Drill Operator: Erin Turner DO (Physician) [facility] Service: Infectious Disease Initial Consult Note [...] initially presented to the emergency department at [facility] in [place]. 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 Chronic diarrhea COPD (chronic obstructive pulmonary disease) ([facility]) Crohn's disease (HCC) Deep vein thrombosis (DVT) ([facility]) right leg and then travelled to spleen Depression E-coli UTI Embolism and thrombosis of splenic artery Gastroesophageal reflux disease with hiatal hernia GERD (gastroesophageal reflux disease) Hemorrhage of gastrointestinal tract, unspecified Hypertension Hypokalemia 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) Joint pain Microcytic anemia Neuromuscular disorder ([facility]) left leg numbness, severe tingling, shooting pain down leg Neuropathy Osteoporosis Other chronic pain Pyelonephritis Recurrent aphthous ulcer Sepsis ([facility]) Past Surgical History Procedure Laterality Date ABDOMINAL SURGERY ANAL FISTULA SETON PLACEMENT N/A 10/17/2015 Procedure: ANAL FISTULA SETON PLACEMENT; Surgeon: Enrique Bocanegra MD; Location: [facility]; Service: General; Laterality: N/A; APPENDECTOMY CHOLECYSTECTOMY ESOPHAGOGASTRODUODENOSCOPY Left 08/06/2015 Procedure: ESOPHAGOGASTRODUODENOSCOPY; Surgeon: Sheng Rios MD; Location: [facility]; Service: Gastroenterology; Laterality: Left; ESOPHAGOGASTRODUODENOSCOPY N/A 04/21/2014 Procedure: ESOPHAGOGASTRODUODENOSCOPY; Surgeon: Bony Petty MD; Location: [facility]; Service: Gastroenterology; Laterality: N/A; HYSTERECTOMY LAPAROTOMY N/A 04/23/2014 Procedure: EXPLORATION - LAPAROTOMY; Surgeon: Bogdan Moser DO; Location: [facility] O R; Service: General; Laterality: N/A; LYSIS OF ADHESIONS PORTACATH PLACEMENT Left SMALL INTESTINE SURGERY SPLENECTOMY, TOTAL N/A 04/23/2014 Procedure: SPLENECTOMY; Surgeon: Bogdan Moser DO; Location: [facility]; Service: General; Laterality: N/A; [...] 98.5 F (36.9 C) (Oral) | R daog 16 | Ht 1.727 m (5' 8") [...] culture and blood cultures were collected at [facility] jesse or to transfer. Final reports will [...] 02/15/17854 Date of Service: 02/15/17854 Status: Signed Hard Rock Drill Operator: Jhonny Jeong RN (Registered Nurse) Problem: Pain [...] Care by Linh Narayan RN at 02/14/17 4205 Author: Linh Narayan RN Service: (none) Author Type: Registered Nurse Filed: 02/14/17 9377 Date of Service: 02/14/172357 Status: Signed Hard Rock Drill Operator: Linh Narayan RN (Registered Nurse) Problem: Pain [...] Care by Catherine Bashir RN at 02/14/17 357 Author: Catherine Bashir RN Service: (none) Author Type: Registered Nurse Filed: 02/14/171356 Date of Service: 02/14/171356 Status: Signed Hard Rock Drill Operator: Catherine Bashir RN (Registered Nurse) Problem: Safety [...] 02/13/172248 Date of Service: 02/13/172248 Status: Signed Hard Rock Drill Operator: Tanika Alaniz RN (Registered Nurse) Problem: Pain [...] 1644 Date of Service: 02/13/17842 Status: Signed Hard Rock Drill Operator: Jhonny Jeong RN (Registered Nurse) Pt will [...] 02/12/172340 Date of Service: 02/12/172340 Status: Signed Hard Rock Drill Operator: Tanika N Jansons, RN (Registered Nurse) Problem: [...] (none) Author Type: Registered Nurse Filed: 02/12/17 1515 Date of Service: 02/12/171507 Status: Signed Hard Rock Drill Operator: Irene Ramon RN (Registered Nurse) Problem: Pain [...] 02/12/17216 Date of Service: 02/12/17216 Status: Signed Hard Rock Drill Operator: Tanika Alaniz RN (Registered Nurse) Problem: Pain [...] | | Fingerstick | performed at [facility];[address] | | LAB | | | | [address];[place], [place] | | | | | | [address] | | | | + + + [...] | | Fingerstick | performed at [facility];[address] | | LAB | | | | [address];[place] | | | | | | [address] | | | | + + + [...] | | | | performed at [facility] | | | | | | [address] [facility];[place], [place] | | | | | | [address] | | | | + + [...] | | | | performed at [facility];[address] | | | | | | [facility];[place], [place] | | | | | | [address] | | | | | |HYPO | | | | | |1+ | | | | | |TARGET | | | | | |1+ | | | | | |OVALO | | | | | |Testing performed at [facility];[address] [facility];[place] [address] | | | | | | | [...] | | | | performed at [facility];[address] | | LAB | | | | [address];[place], [place] | | | | | | [address] | | | | + + + [...] | | | | performed at [facility];[address] | | LAB | | | | [address];[place] | | | | | | [address] | | | | + + + [...] | | | | | at [facility];[address] [place] [address] | | | | | | [facility];[place] [address] | | | | + + + [...] | | Fingerstick | performed at [facility];[address] | | LAB | | | | [address];[place] | | | | | | [address] | | | | + + + [...] | | Fingerstick | performed at [facility];[address] | | LAB | | | | [address];[place], [place] | | | | | | [address] | | | | + + + [...] | | Fingerstick | performed at [facility];[address] | | LAB | | | | [address];[place] | | | | | | [address] | | | | + + + [...] | | Fingerstick | performed at [facility];[address] | | LAB | | | | [address];[place] | | | | | | [address] | | | | + + [...] | | Fingerstick | performed at [facility];[address] | | LAB | | | | [address];[place] | | | | | | [address] | | | | + + + [...] | | | | performed at [facility];[address] | | | | | | [address];[place], [place] | | | | | | [address] | | | | + + + [...] | | | | | at [facility];[address];[place] [address] | | | | | |ANISO | | | | | |1+ | | | | | |OVALO | | | | | |1+ | | | | | |TARGET | | | | | |NORMAL PLT MORPH | | | | | |Testing performed at [facility];[address] [place] [address];[place] [address] | | | | | | | [...] | | | | performed at [facility];[address] | | LAB | | | | [address];[place] | | | | | | [address] | | | | + + + [...] | | | | performed at [facility];[address] | | | | | | [address];[place], [place] | | | | | | [address] | | | | + + + [...] | | | | | at [facility];[address] [place] [address] | | | | | | [facility];[place] [address] | | | | + + + [...] | | Fingerstick | performed at [facility];[address] | | LAB | | | | [address];[place] | | | | | | [address] | | | | + + + [...] | | Fingerstick | performed at [facility];[address] | | LAB | | | | [address];[place], [place] | | | | | | [address] | | | | + + + [...] | | Fingerstick | performed at [facility];[address] | | LAB | | | | [address];[place], [place] | | | | | | [address] | | | | + + + [...] | | | es | performed at [facility], [address] | | LAB | | | | [address], | | | | | | [place] [address] | | | | + + + [...] | | | | | [place] [address] | | | | + + + [...] | | Fingerstick | performed at [facility];[address] | | LAB | | | | [address];[place], [place] | | | | | | [address] | | | | + + + [...] | | | | performed at [facility];[address] | | LAB | | | | [address];[place], [place] | | | | | | [address] | | | | + + + [...] | | | | performed at [facility] | | | | | | [facility];[place], [place] | | | | | | [address] | | | | + + + + + + + + | Specimen | + + | | + + + +---------+ + + | Performing | Address | City/State/[facility] | Phone Number | | Organization | [...] | | | | performed at [facility];[address] | | | | | | [address];[place] | | | | | | [address] | | | | + + + [...] | | | | g performed at [facility], [address] | | | | | | [address], | | | | | | [place] [address] | | | | | |HYPO | | | | | |2+ | | | | | |TARGET | | | | | |1+ | | | | | |OVALO | | | | | |1+ | | | | | |ACANTHO | | | | | |Testing performed at [facility], [address] [place] [address] | | | | | | | [...] | | | | performed at [facility];[address] | | LAB | | | | [address];[place] | | | | | | [address] | | | | + + + [...] | | | | performed at [facility] | | | | | | [address];[place], [place] | | | | | | [address] | | | | + + + [...] | | | | | at [facility];[address] [place] [address] | | | | | | [facility];[place] [address] | | | | + + + [...] | | Fingerstick | performed at [facility];[address] | | LAB | | | | [address];[place] | | | | | | [address] | | | | + + + [...] | | Fingerstick | performed at [facility];[address] | | LAB | | | | [address];[place] | | | | | | [address] | | | | + + + [...] | | Fingerstick | performed at [facility];[address] | | LAB | | | | [address];[place] | | | | | | [address] | | | | + + + [...] | | | | performed at [facility];[address] | | | | | | [address];[place], [place] | | | | | | [address] | | | | + + + [...] | | | | performed at [facility] | | | | | | [address];[place] | | | | | | [address] | | | | + + + [...] | | | | performed at [facility];[address] | | LAB | | | | [address];[place], [place] | | | | | | [address] | | | | + + + [...] | | | | performed at [facility] | | LAB | | | | [address] [facility];[place], [place] | | | | | | [address] | | | | + + + [...] | | | | | at [facility];[address] | | | | | | [facility];[place] [address] | | | | + + + [...] | | | Testing performed at [facility];[address] [place] [address];[place] [address] | | + + + + +---------+ [...] | | | | performed at [facility];[address] | mmol/L | LAB | | | | [address];[place], [place] | | | | | | [address] | | | | + + + [...] | | | | performed at [facility];[address] | mmol/L | LAB | | | | [address];[place] | | | | | | [address] | | | | + + + [...] | | Patient | performed at [facility];[address] | | LAB | | | | [address];[place], [place] | | | | | | [address] | | | | + + + [...] | | | | performed at [facility] | | | | | | [facility];[place], [place] | | | | | | [address] | | | | + + + [...]
--- OUTSIDE RECORDS SUMMARY | ~2019-11-05 | XMS | Encounter Summary ---
Demographics + + + | Address | [address] | | | [place] [address] | + + + | Home Phone | | + + + | Preferred Language | Unknown | + + + | Marital Status | | + + + | Advent Affiliation | NRP | + + + [...] [place], [place] | | | | | [address] | | + + + + + | Cami Sawyer | ECON | Unknown | | + + + + + Care Team Providers + +------+ + | Care Hand Ii Blocker Name | Role | Phone | + [...] | 2011 | Encounter | [address] [facility] | | | | | | [facility] | | | | | | [facility] | | | | | | [place], [place] | | | | | | [address] | | | | | | [phone] | | | +--------+ + + + [...]
--- OUTSIDE RECORDS SUMMARY | ~2019-11-05 | XMS | Encounter Summary ---
Demographics + + + | Address | [address] | | | [place] [address] | + + + | Home Phone | | + + + | Preferred Language | Unknown | + + + | Marital Status | | + + + | Restorationist Affiliation | Unknown | + + + | Race | Unknown | + + + | Ethnic Group | Unknown | + + + Author + + + | Author | [facility] | | | and [place] | + + + | Organization | [facility] | | [...] Providers + +------+ + | Care Residential Care Facility Manager Name | Role | Phone | + +------+ + PCP | Unavailable | + +------+ + Encounter Details +--------+ + + + + | Date | Type | Department | Care Team | Description | +--------+ + + + + | 04/10/ | Hospital | [facility] | Ro Davidson MD | Pyelonephritis | | 2015 - | Encounter | MEDICAL CENTER | [address] | | | | | CLINICAL DECISION | [place] [address] | | | 07/22/ | | [address] | [phone] | | | 2014 | | [place], [place] | | | | | | [address] | | | | | | [phone] | | | +--------+ + + + [...] Summaries by Compa Jules MD at 07/22/14 7233 Author: Compa Jules MD Service: (none) Author Type: Physician Filed: 08/14/14 1201 Date of Service: 07/22/14 1256 Status: Signed Top Lift Nailer: Compa Jules MD (Physician) Related Notes: Original Note by Compa Jules MD (Physician) filed at 07/22/14 3095 [facility]: Hospitalist Physician Discharge Summary Patient ID: Mackenzie Willingham [id number] 58 y.o. 1955 Admit date: 07/19/2014 Discharge [...] up: Neel Fernandes MD [address] [place] [address] [place] [address] Raphael Gan DO [address] 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 You may get the following medications from [...] Note by Leelee Fermin RN at 07/22/14 6488 Author: Leelee Fermin RN Service: (none) Author Type: Registered Nurse Filed: 07/22/14 1335 Date of Service: 07/22/14 1335 Status: Signed Top Lift Nailer: Leeele Fermni RN (Registered Nurse) Patient received discharge teaching with no questions or concerns. Patient left via private vehicle with daughter. Leelee Fermin RN onver roshan Transaction, Provider Unknown - 07/22/2014 1:06 PM PDT Case Management by Kateryna Salazar RN at 07/22/14 1306 Author: Kateryna Salazar RN Service: (none) Author Type: Registered Nurse Filed: 07/22/14 1307 Date of Service: 07/22/14 1306 Status: Signed Top Lift Nailer: Kateryna Salazar RN (Registered Nurse) Patient requesting [...] Date of Service: 07/22/14 1155 Status: Signed Top Lift Nailer: Nadiya Smith PT (Physical Therapist) 07/22/14 1155 [...] Date of Service: 07/22/14 1043 Status: Signed Top Lift Nailer: Raphael Gan DO (Physician) [facility]: Infectious Disease Progress Note Hospital Day: LOS: 3 days Post-Op Day: * No surgery found * SUBJECTIVE Patient Summary: 58 y.o. female with significant past medical history of Crohn's dis ease on chronic prednisone 15 mg daily, COPD, gastroesophageal reflux disease, allergies to penicillin, levofloxacin, erythromycin who presented to [facility] with we akness and urinary incontinence. Initial [...] 07/22/2014 EGFR >60 07/22/2014 Urine culture from [facility] shows pansensitive Escherichia coli with the exce [...] Notes by Compa Jules MD at 07/21/14 1108 Author: Compa Jules MD Service: (none) Author Type: Physician Filed: 07/21/14 1120 Date of Service: 07/21/141108 Status: Signed Top Lift Nailer: Compa Jules MD (Physician) [facility]: Hospitalist Progress Note Hospital Day: LOS: 2 days Consultants: Treatment Team: Consulting Physician: Raphael Gan DO Admitting Provider: Ro Davidson MD The first problem in assessment is the principal problem. ASSESSMENT/ PLAN 1. Systemic inflammatory response syndrome, urinary tract infection. Leukocytosis improving (patient does have some chronic leukocytosis). Continue with vancomycin, aztreonam for now. Received cultures, blood and urine from [place]. Blood cultures negative so far. Urine culture positive for lactose relationship mgr, sensitivities pending. Patient has multiple allergie s. [...] 4 months. She has to follow with senior sql database developer. 5. Chronic congestive heart failure, currently stable. Not decompensated at this point. Disposition: Home. 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 Attempted to eat breakfast, using the commode to toil et, took shower. Still complains of headache and nausea. Vale Salgado onver roshan Transaction, Provider Unknown - 07/21/2014 9:16 AM PDT Case Management by LEVI Jerry at 07/21/14915 Author: LEVI Jerry Service: (none) Author Type: Supervisor Tower Filed: 07/21/14919 Date of Service: 07/21/14915 Status: Signed Top Lift Nailer: LEVI Jerry (Supervisor Tower) 07/21/14913 Discharge Planning Evaluation Admitting Diagnosis (Sepsis [...] care /care: Pt lives with her in [place]. Can provide all self-care/ADLs patients primary care [...] disease with hiatal hernia , Patient's insurance: Medicare/[facility] PT recommendations / DME recommendations: N/A - No DME indicated at this time Community resources: Patient just started PT at the "rec center" in [place]. Assistance in transportation: Family can transport home. CM also spoke with pt's RN, Vale and she did not identify any d/c needs at this time. LEVI Jerry Compa Nam MD - 07/20/2014 4:57 PM PDTFormatting of this note might be different from the origi nal. Progress Notes by Compa Jules MD at 07/20/14 5655 Author: Compa Jules MD Service: (none) Author Type: Physician Filed: 08/04/14 1307 Date of Service: 07/20/141656 Status: Signed Top Lift Nailer: Compa Jules MD (Physician) Related Notes: Original Note by Compa Jules MD (Physician) filed at 07/20/14 1700 [facility]: Hospitalist Progress Note Hospital Day: [...] 4 months. She has to follow with senior sql database developer. 5. Chronic congestive heart failure, currently stable. Not decompensated at this point. Disposition: Home. 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, [employer], used which may contain error for similar [...] Notes by [place] Ladd RN at 07/20/14 5358 Author: Vlae Ladd RN Service: (none) Author Type: Registered Nurse Filed: 07/20/14 2004 Date of Service: 07/20/141316 Status: Signed Top Lift Nailer: [place] Ladd RN (Registered Nurse) Pt educated [...] AM PDT Progress Notes by Paula Barnes [facility] at 07/20/14 5810 Author: Paula Barnes RPH Service: (none) Author Type: Pharmacist Filed: 07/20/14715 Date of Service: 07/20/14715 Status: Signed Top Lift Nailer: Paula Barnes RPH (Pharmacist) Late entry for Vancomycin started last night by Crispin LUNA. Initiation of Vancomycin Pharmacy Dosing Mackenzie Willingham 58 y.o. female 1.753 m (5' 9") 64.32 kg (141 lb 12.8 oz) Body mass index is 20.93 kg/(m^2). [place] Body Weight: 66.2 kg Adjusted Body Weight: 64.3 kg CREATININE Date Value Ref Range Status 07/20/2014 0.76 0.50 - 1.00 mg/dL Final Testing performed at [facility];[address] [place] [id number] Estimated CrCl : CREATININE: 0.76 (07/20/14 0354) [...] 07/19/142055 Date of Service: 07/19/142055 Status: Signed Top Lift Nailer: Hamilton Drummond RPH (Pharmacist) Note ccl 90.2ml/min meds reviewed [facility] docume nted in this encounter H&P Notes Ro Davidson MD - 07/19/2014 8:00 PM PDTFormatting of this note might be different from th e original. H&P by Ro Davidson MD at 07/19/141999 Author: Ro Davidson MD Service: Hospitalist Author Type: Physician Filed: 07/20/14 0822 Date of Service: 07/19/141999 Status: Addendum Top Lift Nailer: Ro Davidson MD (Physician) Related Notes: Original Note by Ro Davidson MD (Physician) filed at 07/19/142055 [facility]: Hospitalist Admission History & Physical Date of Admission: 07/19/2014 Requesting Physician: Transfer from [facility] Reason for Admission: Sepsis due to UTI History Obtained From: patient, chart review CHIEF COMPLAINT: i am feeling sick HISTORY OF PRESENT ILLNESS The patient is a 58 y.o. 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 Procedure: SPLENECTOMY; Surgeon: Bogdan Moser DO; Location: [facility] MAIN OR; Service: General; Laterality: N/A; Allergies [...] | Testing performed | | | at [facility], [address] [place] [address] | | + + + + +---------+ [...] | | | | | | [place] [address] | | | | + + + + + + | Clarity, | CLEARComment: Testing | | EXTERNAL | | | Urine | performed at [facility], [address] | | LAB | | | | [address], | | | | | | [place] [address] | | | | + + + + + + | Specific | 1.009Comment: Testing | 1.002 - 1.030 | EXTERNAL | | | [place], | performed at [facility], [address] | | LAB | | | Urine | [address], | | | | | | [place] [address] | | | | + + + + + + | Leukocyte | MODERATE (A)Comment: | | EXTERNAL | | | Esterase, | Testing performed at | | LAB | | | Urine | [facility], [address] | | | | | | [place] | | | | | | [address] | | | | + + + + + + | Nitrite, | NEGATIVEComment: Testing | | EXTERNAL | | | Urine | performed at [facility], [address] | | LAB | | | | [address], | | | | | | [place] [address] | | | | + + + + + + | Urobilinoge | 0.2Comment: Testing | mg/dL | EXTERNAL | | | n, Urine | performed at [facility], [address] | | LAB | | | | [address], | | | | | | [place] [address] | | | | + + + + + + | Protein, | NEGATIVEComment: Testing | mg/dL | EXTERNAL | | | Urine | performed at [facility], [address] | | LAB | | | | [address], | | | | | | [place] [address] | | | | + + + + + + | pH, Urine | 6.0Comment: Testing | 5.0 - 8.0 | EXTERNAL | | | | performed at [facility], [address] | | LAB | | | | [address] [place], | | | | | | [place] [address] | | | | + + + + + + | Blood, | NEGATIVEComment: Testing | | EXTERNAL | | | Urine | performed at [facility], [address] | | LAB | | | | [address], | | | | | | [place] [address] | | | | + + + + + + | Ketones | NEGATIVEComment: Testing | mg/dL | EXTERNAL | | | | performed at [facility], [address] | | LAB | | | | [address], | | | | | | [place] [address] | | | | + + + + + + | Bilirubin, | NEGATIVEComment: Testing | | EXTERNAL | | | Urine | performed at [facility], [address] | | LAB | | | | [address] [place], | | | | | | [place] [address] | | | | + + + + + + | Glucose, | NEGATIVEComment: Testing | mg/dL | EXTERNAL | | | Urine | performed at [facility], [address] | | LAB | | | | [address] [place], | | | | | | [place] [address] | | | | + + + [...] | | | | | [place] [address] | | | | + + + + + + | RBC, UA | 16-25Comment: Testing | 0 - 5 /hpf | EXTERNAL | | | | performed at [facility], [address] | | LAB | | | [address], | | | | | | [place] [address] | | | | + + + + + + | Epithelial | 26-50Comment: Testing | /lpf | EXTERNAL | | | Cells | performed at [facility], [address] | | LAB | | | | [address] [place], | | | | | | [place] [address] | | | | + + + + + + | Bacteria, | NONE SEENComment: | | EXTERNAL | | | UA | CULTURE TO FOLLOWTesting | | LAB | | | | performed at [facility], [address] | | | | | | [address] [place], | | | | | | [place] [address] | | | | + + + + + + | HYALINE | NONE SEENComment: | | EXTERNAL | | | CASTS UA | Testing performed at | | LAB | | | | [facility], [address] [facility] | | | | | | [place] | | | | | | [address] | | | | + + + [...] | | | | | performed at [facility];[address] | | | | | | [address];[place], [place] | | | | | | [address] | | | | + + + [...] | | | | [facility], [address] [facility] | | | | | | [place] | | | | | | [address] | | | | + + + + + + | Non- | 4.06Comment: Testing | 3.70 - 5.10 | EXTERNAL | | | Red Blood | performed at [facility], [address] | M/uL | LAB | | | Cells | [address], | | | | | [address] | [place] [address] | | | | + + + + + + | Hemoglobin | 12.5Comment: Testing | 11.3 - 15.5 | EXTERNAL | | | | performed at [facility], [address] | g/dL | LAB | | | | [address], | | | | | | [place] [address] | | | | + + + + + + | Hematocrit, | 40.1Comment: Testing | 34.0 - 46.0 % | EXTERNAL | | | POC | performed at [facility], [address] | | LAB | | | | [address], | | | | | | [place] [address] | | | | + + + + + + | MCV | 98.6Comment: Testing | 80.0 - 100.0 fl | EXTERNAL | | | | performed at [facility], [address] | | LAB | | | | [address], | | | | | | [place] [address] | | | | + + + + + + | MCH | 30.8Comment: Testing | 27.0 - 34.0 pg | EXTERNAL | | | | performed at [facility], [address] | | LAB | | | | [address], | | | | | | [place] [address] | | | | + + + + + + | MCHC | 31.2 (L)Comment: Testing | 32.0 - 35.5 | EXTERNAL | | | | performed at [facility], [address] | g/dL | LAB | | | | [address], | | | | | | [place] [address] | | | | + + + + + + | RDW-CV | 55.1 (H)Comment: Testing | 37 - 53 fl | EXTERNAL | | | | performed at [facility], [address] | | LAB | | | | [address], | | | | | | [place] [address] | | | | + + + + + + | Platelet | 309Comment: Testing | 150 - 400 K/uL | EXTERNAL | | | Count | performed at [facility], [address] | | LAB | | | Plasma | [address], | | | | | | [place] [address] | | | | + + + [...] [place] | | | | | | [address] | | | | + + + + + + | % Segmented | 72.50Comment: Testing | % | EXTERNAL | | | | performed at [facility], [address] | | LAB | | | Neutrophils | [address] [place], | | | | | | [place] [address] | | | | + + + + + + | % | 19.86Comment: Testing | % | EXTERNAL | | | Lymphocytes | performed at [facility], [address] | | LAB | | | | [address], | | | | | | [place] [address] | | | | + + + + + + | % Monocytes | 7.00Comment: Testing | % | EXTERNAL | | | | performed at [facility], [address] | | LAB | | | | [address], | | | | | | [place] [address] | | | | + + + + + + | % | 0.21Comment: Testing | % | EXTERNAL | | | Eosinophils | performed at [facility], [address] | | LAB | | | | [address], | | | | | | [place] [address] | | | | + + + + + + | % Basophils | 0.43Comment: Testing | % | EXTERNAL | | | | performed at [facility], [address] | | LAB | | | | [address], | | | | | | [place] [address] | | | | + + + + + + | Absolute | 8.17 (H)Comment: Testing | 1.90 - 7.40 | EXTERNAL | | | Segmented | performed at [facility], [address] | K/uL | LAB | | | Neutrophils | [address], | | | | | | [place] [address] | | | | + + + + + + | Absolute | 2.24Comment: Testing | 1.00 - 3.90 | EXTERNAL | | | Lymphocytes | performed at [facility], [address] | K/uL | LAB | | | | [address], | | | | | | [place] [address] | | | | + + + + + + | Absolute | 0.79Comment: Testing | 0.00 - 0.80 | EXTERNAL | | | Monocytes | performed at [facility], [address] | K/uL | LAB | | | | [address], | | | | | | [place] [address] | | | | + + + + + + | Absolute | 0.02Comment: Testing | 0.00 - 0.50 | EXTERNAL | | | Eosinophils | performed at [facility], [address] | K/uL | LAB | | | | [address], | | | | | | [place] [address] | | | | + + + + + + | Absolute | 0.05Comment: Testing | 0.00 - 0.10 | EXTERNAL | | | Basophils | performed at [facility], [address] | K/uL | LAB | | | | [address], | | | | | | [place] [address] | | | | + + + [...] | | | | | [place] [address] | | | | + + + [...] | | | | performed at [facility], [address] | | LAB | | | | [address] [place], | | | | | | [place] [address] | | | | + + + [...] | | | | performed at [facility], [address] | mmol/L | LAB | | | | [address] [place], | | | | | | [place] [address] | | | | + + + + + + | K | 3.9Comment: Testing | 3.5 - 4.9 | EXTERNAL | | | | performed at [facility], [address] | mmol/L | LAB | | | | [address] [place], | | | | | | [place] [address] | | | | + + + + + + | Cl | 106Comment: Testing | 99 - 109 mmol/L | EXTERNAL | | | | performed at [facility], [address] | | LAB | | | | [address], | | | | | | [place] [address] | | | | + + + + + + | CO2 | 20 (L)Comment: Testing | 23 - 32 mmol/L | EXTERNAL | | | | performed at [facility], [address] | | LAB | | | | [address], | | | | | | [place] [address] | | | | + + + + + + | Anion Gap | 8Comment: Testing | 5 - 20 mmol/L | EXTERNAL | | | | performed at [facility], [address] | | LAB | | | | [address], | | | | | | [place] [address] | | | | + + + + + + | Glucose, | 98Comment: Testing | 65 - 99 mg/dL | EXTERNAL | | | Fasting | performed at [facility], [address] | | LAB | | | | [address], | | | | | | [place] [address] | | | | + + + + + + | BUN | 19Comment: Testing | 8 - 25 mg/dL | EXTERNAL | | | | performed at [facility], [address] | | LAB | | | | [address], | | | | | | [place] [address] | | | | + + + + + + | Creatinine | 0.69Comment: Testing | 0.50 - 1.00 | EXTERNAL | | | | performed at [facility], [address] | mg/dL | LAB | | | | [address], | | | | | | [place] [address] | | | | + + + + + + | BUN/Creatin | 28Comment: Testing | | EXTERNAL | | | ine Ratio | performed at [facility], [address] | | LAB | | | | [address], | | | | | | [place] [address] | | | | + + + + + + | Calcium | 8.5Comment: Testing | 8.5 - 10.5 | EXTERNAL | | | | performed at [facility], [address] | mg/dL | LAB | | | | [address] [place], | | | | | | [place] [address] | | | | + + + + + + | Protein, | 5.9 (L)Comment: Testing | 6.3 - 8.2 g/dL | EXTERNAL | | | Total | performed at [facility], [address] | | LAB | | | | [address] [place], | | | | | | [place] [address] | | | | + + + + + + | Albumin | 2.8 (L)Comment: Testing | 3.6 - 5.0 g/dL | EXTERNAL | | | | performed at [facility], [address] | | LAB | | | | [address] [place], | | | | | | [place] [address] | | | | + + + + + + | Globulin | 3.1Comment: Testing | 1.3 - 4.9 g/dL | EXTERNAL | | | | performed at [facility], [address] | | LAB | | | [address], | | | | | | [place] [address] | | | | + + + + + + | A/G Ratio | 0.9 (L)Comment: Testing | 1.0 - 2.4 | EXTERNAL | | | | performed at [facility], [address] | | LAB | | | | [address], | | | | | | [place] [address] | | | | + + + + + + | Bilirubin | 0.4Comment: Testing | 0.1 - 1.5 mg/dL | EXTERNAL | | | Total | performed at [facility], [address] | | LAB | | | | [address], | | | | | | [place] [address] | | | | + + + + + + | ALP, | 124 (H)Comment: Testing | 35 - 115 U/L | EXTERNAL | | | External | performed at [facility], [address] | | LAB | | | | [address] [place], | | | | | | [place] [address] | | | | + + + [...] | | | | | [place] [address] | | | | + + + [...] [place], | | | | | | [place] [address] | | | | + + + [...] | | | | | performed at [facility] | | | | | | [address] [place], [place] | | | | | | [address] | | | | + + + [...] K/uL | LAB | | | | [facility];[address] | | | | | | [place] [address] | | | | + + + + + + | Non- | 4.10Comment: Testing | 3.70 - 5.10 | EXTERNAL | | | Red Blood | performed at [facility];[address] | M/uL | LAB | | | Cells | [address];[place] | | | | | Counted | [address] | | | | + + + + + + | Hemoglobin | 12.9Comment: Testing | 11.3 - 15.5 | EXTERNAL | | | | performed at [facility];[address] | g/dL | LAB | | | | [address];[place] | | | | | | [address] | | | | + + + + + + | Hematocrit, | 40.0Comment: Testing | 34.0 - 46.0 % | EXTERNAL | | | POC | performed at [facility];[address] | | LAB | | | | [address];[place] | | | | | | [address] | | | | + + + + + + | MCV | 97.6Comment: Testing | 80.0 - 100.0 fl | EXTERNAL | | | | performed at [facility];[address] | | LAB | | | | [address];[place] | | | | | | [address] | | | | + + + + + + | MCH | 31.4Comment: Testing | 27.0 - 34.0 pg | EXTERNAL | | | | performed at [facility];[address] | | LAB | | | | [address];[place] | | | | | | [address] | | | | + + + + + + | MCHC | 32.1Comment: Testing | 32.0 - 35.5 | EXTERNAL | | | | performed at [facility];[address] | g/dL | LAB | | | | [address];[place] | | | | | | [address] | | | | + + + + + + | RDW-CV | 56.0 (H)Comment: Testing | 37 - 53 fl | EXTERNAL | | | | performed at [facility];[address] | | LAB | | | | [address];[place] | | | | | | [address] | | | | + + + + + + | Platelet | 323Comment: Testing | 150 - 400 K/uL | EXTERNAL | | | Count | performed at [facility];[address] | | LAB | | | Plasma | [address];[place] | | | | | | [address] | | | | + + + + + + | MPV | 7.9Comment: Testing | fl | EXTERNAL | | | | performed at [facility];[address] | | LAB | | | | [address];[place] | | | | | | [address] | | | | + + + + + + | Differentia | AUTOMATEDComment: | | EXTERNAL | | | l Type | Testing performed at | | LAB | | | | [facility];[address];[place] [address] | | | | + + + + + + | % Segmented | 72.96Comment: Testing | % | EXTERNAL | | | | performed at [facility];[address] | | LAB | | | Neutrophils | [address];[place] | | | | | | [address] | | | | + + + + + + | % | 19.69Comment: Testing | % | EXTERNAL | | | Lymphocytes | performed at [facility];[address] | | LAB | | | | [address];[place] | | | | | | [address] | | | | + + + + + + | % Monocytes | 6.53Comment: Testing | % | EXTERNAL | | | | performed at [facility];[address] | | LAB | | | | [address];[place] | | | | | | [id number] | | | | + + + + + + | % | 0.04Comment: Testing | % | EXTERNAL | | | Eosinophils | performed at [facility];[address] | | LAB | | | | [address];[place] | | | | | | [address] | | | | + + + + + + | % Basophils | 0.78Comment: Testing | % | EXTERNAL | | | | performed at [facility];[address] | | LAB | | | | [address];[place] | | | | | | [address] | | | | + + + + + + | Absolute | 9.79 (H)Comment: Testing | 1.90 - 7.40 | EXTERNAL | | | Segmented | performed at [facility];888 | K/uL | LAB | | | Neutrophils | [address];[place] | | | | | | [address] | | | | + + + + + + | Absolute | 2.64Comment: Testing | 1.00 - 3.90 | EXTERNAL | | | Lymphocytes | performed at [facility];888 | K/uL | LAB | | | | [address];[place] | | | | | | [address] | | | | + + + + + + | Absolute | 0.88 (H)Comment: Testing | 0.00 - 0.80 | EXTERNAL | | | Monocytes | performed at [facility];888 | K/uL | LAB | | | | [address];[place] | | | | | | [address] | | | | + + + + + + | Absolute | 0.01Comment: Testing | 0.00 - 0.50 | EXTERNAL | | | Eosinophils | performed at [facility];888 | K/uL | LAB | | | | [address];[place] | | | | | | [address] | | | | + + + + + + | Absolute | 0.11 (H)Comment: Testing | 0.00 - 0.10 | EXTERNAL | | | Basophils | performed at [facility];888 | K/uL | LAB | | | | [address];[place] | | | | | | [address] | | | | + + + [...] EXTERNAL | | | | performed at [facility];888 | | LAB | | | | [address];[place], [place] | | | | | | [address] | | | | + + + [...] EXTERNAL | | | | performed at [facility] | | LAB | | | | [address];[place] | | | | | | [address] | | | | + + + [...] EXTERNAL | | | | performed at [facility];888 | mmol/L | LAB | | | | [address];[place] | | | | | | [address] | | | | + + + + + + | K | 4.0Comment: Testing | 3.5 - 4.9 | EXTERNAL | | | | performed at [facility];888 | mmol/L | LAB | | | | [address];[place] | | | | | | [address] | | | | + + + + + + | Cl | 110 (H)Comment: Testing | 99 - 109 mmol/L | EXTERNAL | | | | performed at [facility];888 | | LAB | | | | [address];[place] | | | | | | [address] | | | | + + + + + + | CO2 | 23Comment: Testing | 23 - 32 mmol/L | EXTERNAL | | | | performed at [facility];888 | | LAB | | | | [address];[place] | | | | | | [address] | | | | + + + + + + | Anion Gap | 12Comment: Testing | 5 - 20 mmol/L | EXTERNAL | | | | performed at [facility];888 | | LAB | | | | [address];[place] | | | | | | [address] | | | | + + + + + + | Glucose, | 97Comment: Testing | 65 - 99 mg/dL | EXTERNAL | | | Fasting | performed at [facility];888 | | LAB | | | | [address];[place] | | | | | | [address] | | | | + + + + + + | BUN | 19Comment: Testing | 8 - 25 mg/dL | EXTERNAL | | | | performed at [facility];888 | | LAB | | | | [address];[place] | | | | | | [address] | | | | + + + + + + | Creatinine | 0.84Comment: Testing | 0.50 - 1.00 | EXTERNAL | | | | performed at [facility];888 | mg/dL | LAB | | | | [address];[place] | | | | | | [address] | | | | + + + + + + | BUN/Creatin | 23Comment: Testing | | EXTERNAL | | | ine Ratio | performed at [facility];888 | | LAB | | | | [address];[place] | | | | | | [address] | | | | + + + + + + | Calcium | 8.1 (L)Comment: Testing | 8.5 - 10.5 | EXTERNAL | | | | performed at [facility];888 | mg/dL | LAB | | | | [address];[place] | | | | | | [address] | | | | + + + + + + | Protein, | 6.5Comment: Testing | 6.3 - 8.2 g/dL | EXTERNAL | | | Total | performed at [facility];888 | | LAB | | | | [address];[place] | | | | | | [address] | | | | + + + + + + | Albumin | 2.4 (L)Comment: Testing | 3.6 - 5.0 g/dL | EXTERNAL | | | | performed at [facility];888 | | LAB | | | | [address];[place] | | | | | | [address] | | | | + + + + + + | Globulin | 4.1Comment: Testing | 1.3 - 4.9 g/dL | EXTERNAL | | | | performed at [facility];888 | | LAB | | | | [address];[place] | | | | | | [address] | | | | + + + + + + | A/G Ratio | 0.6 (L)Comment: Testing | 1.0 - 2.4 | EXTERNAL | | | | performed at [facility];888 | | LAB | | | | [address];[place] | | | | | | [address] | | | | + + + + + + | Bilirubin | 0.5Comment: Testing | 0.1 - 1.5 mg/dL | EXTERNAL | | | Total | performed at [facility];888 | | LAB | | | | [address];[place] | | | | | | [address] | | | | + + + + + + | ALP, | 164 (H)Comment: Testing | 35 - 115 U/L | EXTERNAL | | | External | performed at [facility];888 | | LAB | | | | [address];[place] | | | | | | [address] | | | | + + + + + + | AST | 18Comment: Testing | 10 - 45 U/L | EXTERNAL | | | | performed at [facility];888 | | LAB | | | | [address];[place] | | | | | | [address] | | | | + + + + + + | ALT | 19Comment: Testing | 10 - 65 U/L | EXTERNAL | | | | performed at [facility];888 | | LAB | | | | [address];[place] | | | | | | [address] | | | | + + + [...] | | | | | | at [facility];[address] [place] [address] | | | | | | [facility];[place] [address] | | | | + + + [...] | | | | | | ACUTE IA Testing | | | | | | performed at [facility];888 | | | | | | [address];[place], [place] | | | | | | [address] | | | | + + + [...] EXTERNAL | | | | performed at [facility];888 | | LAB | | | | [address];[place], [place] | | | | | | [address] | | | | + + + [...] | | | | | | at [facility];[address] | | | | | | [address];[place] [address] | | | | + + [...] | | | | | performed at [facility];88 | | | | | | [address] [facility];[place], [place] | | | | | | [address] | | | | + + + [...] K/uL | LAB | | | | [facility], [address] | | | | | | [place] | | | | | | [address] | | | | + + + + + + | Non- | 4.76Comment: Testing | 3.70 - 5.10 | EXTERNAL | | | Red Blood | performed at [facility], [address] | M/uL | LAB | | | Cells | [address], | | | | | Counted | [place] [address] | | | | + + + + + + | Hemoglobin | 15.1Comment: Testing | 11.3 - 15.5 | EXTERNAL | | | | performed at [facility], [address] | g/dL | LAB | | | | [address], | | | | | | [place] [address] | | | | + + + + + + | Hematocrit, | 45.6Comment: Testing | 34.0 - 46.0 % | EXTERNAL | | | POC | performed at [facility], [address] | | LAB | | | | [address], | | | | | | [place] [address] | | | | + + + + + + | MCV | 95.9Comment: Testing | 80.0 - 100.0 fl | EXTERNAL | | | | performed at [facility], [address] | | LAB | | | | [address], | | | | | | [place] [address] | | | | + + + + + + | MCH | 31.7Comment: Testing | 27.0 - 34.0 pg | EXTERNAL | | | | performed at [facility], [address] | | LAB | | | | [address], | | | | | | [place] [address] | | | | + + + + + + | MCHC | 33.1Comment: Testing | 32.0 - 35.5 | EXTERNAL | | | | performed at [facility], [address] | g/dL | LAB | | | | [address], | | | | | | [place] [address] | | | | + + + + + + | RDW-CV | 53.8 (H)Comment: Testing | 37 - 53 fl | EXTERNAL | | | | performed at [facility], [address] | | LAB | | | | [address], | | | | | | [place] [address] | | | | + + + + + + | Platelet | 355Comment: Testing | 150 - 400 K/uL | EXTERNAL | | | Count | performed at [facility], [address] | | LAB | | | Plasma | [address], | | | | | | [place] [address] | | | | + + + + + + | MPV | 8.4Comment: Testing | fl | EXTERNAL | | | | performed at [facility], [address] | | LAB | | | | [address], | | | | | | [place] [address] | | | | + + + + + + | Differentia | MANUALComment: Testing | | EXTERNAL | | | l Type | performed at [facility], [address] | | LAB | | | | [address], | | | | | | [place] [address] | | | | + + + + + + | Segmented | 87Comment: Testing | % | EXTERNAL | | | Neutrophils | performed at [facility], [address] | | LAB | | | Manual | [address], | | | | | | [place] [address] | | | | + + + + + + | % Bands | 6Comment: Testing | % | EXTERNAL | | | | performed at [facility], [address] | | LAB | | | | [address], | | | | | | [place] [address] | | | | + + + + + + | Lymphocytes | 7Comment: Testing | % | EXTERNAL | | | Manual | performed at [facility], [address] | | LAB | | | | [address], | | | | | | [place] [address] | | | | + + + + + + | Absolute | 12.66 (H)Comment: | 1.90 - 7.40 | EXTERNAL | | | Neutrophils | Testing performed at | K/uL | LAB | | | | [facility], [address] | | | | | | [place] | | | | | | [address] | | | | + + + + + + | Bands | 0.87 (H)Comment: Testing | 0.00 - 0.20 | EXTERNAL | | | Manual | performed at [facility], [address] | K/uL | LAB | | | | [address], | | | | | | [place] [address] | | | | + + + + + + | Absolute | 1.02Comment: Testing | 1.00 - 3.90 | EXTERNAL | | | Lymphocytes | performed at [facility], [address] | K/uL | LAB | | | | [address] [place], | | | | | | [place] [address] | | | | + + + + + + | RBC | NORMAL PLT MORPHComment: | | EXTERNAL | | | Morphology | NORMAL RBC MORPHTesting | | LAB | | | | performed at [facility], [address] | | | | | | [address] [place], | | | | | | [place] [address] | | | | + + + [...] EXTERNAL | | | | performed at [facility];88 | | LAB | | | | [address];[place], [place] | | | | | | [address] | | | | + + + [...] EXTERNAL | | | | performed at [facility] | | LAB | | | | [facility], [place] | | | | | | [address] | | | | + + + [...] EXTERNAL | | | | performed at [facility];[address] | | LAB | | | | [address];[place], [place] | | | | | | [address] | | | | + + + [...] EXTERNAL | | | | performed at [facility];888 | mmol/L | LAB | | | | [address];[place] | | | | | | [address] | | | | + + + + + + | K | 3.7Comment: Testing | 3.5 - 4.9 | EXTERNAL | | | | performed at [facility];888 | mmol/L | LAB | | | | [address];[place] | | | | | | [address] | | | | + + + + + + | Cl | 103Comment: Testing | 99 - 109 mmol/L | EXTERNAL | | | | performed at [facility];[address] | | LAB | | | | [address];[place] | | | | | | [address] | | | | + + + + + + | CO2 | 23Comment: Testing | 23 - 32 mmol/L | EXTERNAL | | | | performed at [facility];[address] | | LAB | | | | [address];[place] | | | | | | [address] | | | | + + + + + + | Anion Gap | 15Comment: Testing | 5 - 20 mmol/L | EXTERNAL | | | | performed at [facility];[address] | | LAB | | | | [address];[place] | | | | | | [address] | | | | + + + + + + | Glucose, | 150 (H)Comment: Testing | 65 - 99 mg/dL | EXTERNAL | | | Fasting | performed at [facility];[address] | | LAB | | | | [address];[place] | | | | | | [address] | | | | + + + + + + | BUN | 9Comment: Testing | 8 - 25 mg/dL | EXTERNAL | | | | performed at [facility];[address] | | LAB | | | | [address];[place] | | | | | | [address] | | | | + + + + + + | Creatinine | 0.76Comment: Testing | 0.50 - 1.00 | EXTERNAL | | | | performed at [facility];888 | mg/dL | LAB | | | | [address];[place] | | | | | | [address] | | | | + + + + + + | BUN/Creatin | 12Comment: Testing | | EXTERNAL | | | ine Ratio | performed at [facility];[address] | | LAB | | | | [address];[place] | | | | | | [address] | | | | + + + + + + | Calcium | 8.6Comment: Testing | 8.5 - 10.5 | EXTERNAL | | | | performed at [facility];888 | mg/dL | LAB | | | | [address];[place] | | | | | | [address] | | | | + + + + + + | Protein, | 7.3Comment: Testing | 6.3 - 8.2 g/dL | EXTERNAL | | | Total | performed at [facility];[address] | | LAB | | | | [address];[place] | | | | | | [address] | | | | + + + + + + | Albumin | 2.6 (L)Comment: Testing | 3.6 - 5.0 g/dL | EXTERNAL | | | | performed at [facility];[address] | | LAB | | | | [address];[place] | | | | | | [address] | | | | + + + + + + | Globulin | 4.7Comment: Testing | 1.3 - 4.9 g/dL | EXTERNAL | | | | performed at [facility];[address] | | LAB | | | | [address];[place] | | | | | | [address] | | | | + + + + + + | A/G Ratio | 0.6 (L)Comment: Testing | 1.0 - 2.4 | EXTERNAL | | | | performed at [facility];[address] | | LAB | | | | [address];[place] | | | | | | [address] | | | | + + + + + + | Bilirubin | 0.9Comment: Testing | 0.1 - 1.5 mg/dL | EXTERNAL | | | Total | performed at [facility];[address] | | LAB | | | | [address];[place] | | | | | | [address] | | | | + + + + + + | ALP, | 246 (H)Comment: Testing | 35 - 115 U/L | EXTERNAL | | | External | performed at [facility];[address] | | LAB | | | | [address];[place] | | | | | | [address] | | | | + + + + + + | AST | 26Comment: Testing | 10 - 45 U/L | EXTERNAL | | | | performed at [facility];[address] | | LAB | | | | [address];[place] | | | | | | [address] | | | | + + + + + + | ALT | 23Comment: Testing | 10 - 65 U/L | EXTERNAL | | | | performed at [facility];888 | | LAB | | | | [address];[place] | | | | | | [address] | | | | + + + [...] | | | | | | at [facility];[address];[place] [address] | | | | + + [...] | Testing performed | | | at [facility], [address] [place] [address] | | + + + + +---------+ [...] | | | | performed at [facility], [address] | | LAB | | | | [address], | | | | | | [place] [address] | | | | + + + + + + | Clarity, | CLEARComment: Testing | | EXTERNAL | | | Urine | performed at [facility], [address] | | LAB | | | | [address], | | | | | | [place] [address] | | | | + + + + + + | Specific | 1.007Comment: Testing | 1.002 - 1.030 | EXTERNAL | | | [place], | performed at [facility], [address] | | LAB | | | Urine | [address], | | | | | | [place] [address] | | | | + + + + + + | Leukocyte | SMALL (A)Comment: | | EXTERNAL | | | Esterase, | Testing performed at | | LAB | | | Urine | [facility], [address] | | | | | | [place] | | | | | | [address] | | | | + + + + + + | Nitrite, | NEGATIVEComment: Testing | | EXTERNAL | | | Urine | performed at [facility], [address] | | LAB | | | | [address], | | | | | | [place] [address] | | | | + + + + + + | Urobilinoge | 0.2Comment: Testing | mg/dL | EXTERNAL | | | n, Urine | performed at [facility], [address] | | LAB | | | | [address], | | | | | | [place] [address] | | | | + + + + + + | Protein, | NEGATIVEComment: Testing | mg/dL | EXTERNAL | | | Urine | performed at [facility], [address] | | LAB | | | | [address], | | | | | | [place] [address] | | | | + + + + + + | pH, Urine | 6.5Comment: Testing | 5.0 - 8.0 | EXTERNAL | | | | performed at [facility], [address] | | LAB | | | | [address] [place], | | | | | | [place] [address] | | | | + + + + + + | Blood, | SMALL (A)Comment: | | EXTERNAL | | | Urine | Testing performed at | | LAB | | | | [facility], [address] | | | | | | [place] | | | | | | [address] | | | | + + + + + + | Ketones | TRACE (A)Comment: | mg/dL | EXTERNAL | | | | Testing performed at | | LAB | | | | [facility], [address] | | | | | | [place] | | | | | | [address] | | | | + + + + + + | Bilirubin, | NEGATIVEComment: Testing | | EXTERNAL | | | Urine | performed at [facility], [address] | | LAB | | | | [address], | | | | | | [place] [address] | | | | + + + + + + | Glucose, | NEGATIVEComment: Testing | mg/dL | EXTERNAL | | | Urine | performed at [facility], [facility] | | LAB | | | | [address], | | | | | | [place] [address] | | | | + + + [...] | | | | | [place] [address] | | | | + + + + + + | RBC, UA | 1-5Comment: Testing | 0 - 5 /hpf | EXTERNAL | | | | performed at [facility], [address] | | LAB | | | [address], | | | | | | [place] [address] | | | | + + + + + + | Epithelial | 16-25Comment: Testing | /lpf | EXTERNAL | | | Cells | performed at [facility], [address] | | LAB | | | | [place], | | | | | | [place] [address] | | | | + + + + + + | Bacteria, | NONE SEENComment: | | EXTERNAL | | | UA | CULTURE TO FOLLOWTesting | | LAB | | | | performed at [facility], [address] | | | | | | [address] [place], | | | | | | [place] [address] | | | | + + + + + + | HYALINE | NONE SEENComment: | | EXTERNAL | | | CASTS UA | Testing performed at | | LAB | | | | [facility], [address] | | | | | | [place] | | | | | | [address] | | | | + + + [...] | | | | | | ACUTE IA Testing | | | | | | performed at [facility];[address] | | | | | | [address] [facility];[place], [place] | | | | | | [address] | | | | + + + [...] EXTERNAL LAB | | Testing performed at [address];[place] [address] MRSA PCR | | | NEGATIVE Testing performed at | | | [address];[place] [address] | | + + + + +---------+ [...] | | | | | performed at [facility];[address] | | | | | | [facility];[place], [place] | | | | | | [address] | | | | + + + [...] K/uL | LAB | | | | [facility];[address];[place] [address] | | | | + + + + + + | Non- | 4.56Comment: Testing | 3.70 - 5.10 | EXTERNAL | | | Red Blood | performed at [facility];888 | M/uL | LAB | | | Cells | [address];[place] | | | | | Counted | [address] | | | | + + + + + + | Hemoglobin | 14.5Comment: Testing | 11.3 - 15.5 | EXTERNAL | | | | performed at [facility];888 | g/dL | LAB | | | | [address];[place] | | | | | | [address] | | | | + + + + + + | Hematocrit, | 43.4Comment: Testing | 34.0 - 46.0 % | EXTERNAL | | | POC | performed at [facility];[address] | | LAB | | | | [address];[place] | | | | | | [address] | | | | + + + + + + | MCV | 95.2Comment: Testing | 80.0 - 100.0 fl | EXTERNAL | | | | performed at [facility];[address] | | LAB | | | | [address];[place] | | | | | | [address] | | | | + + + + + + | MCH | 31.8Comment: Testing | 27.0 - 34.0 pg | EXTERNAL | | | | performed at [facility];[address] | | LAB | | | | [address];[place] | | | | | | [address] | | | | + + + + + + | MCHC | 33.4Comment: Testing | 32.0 - 35.5 | EXTERNAL | | | | performed at [facility];888 | g/dL | LAB | | | | [address];[place] | | | | | | [address] | | | | + + + + + + | RDW-CV | 53.4 (H)Comment: Testing | 37 - 53 fl | EXTERNAL | | | | performed at [facility];[address] | | LAB | | | | [address];[place] | | | | | | [address] | | | | + + + + + + | Platelet | 335Comment: Testing | 150 - 400 K/uL | EXTERNAL | | | Count | performed at [facility];[address] | | LAB | | | Plasma | [address];[place] | | | | | | [address] | | | | + + + + + + | MPV | 7.8Comment: Testing | fl | EXTERNAL | | | | performed at [facility];[address] | | LAB | | | | [address];[place] | | | | | | [address] | | | | + + + + + + | Differentia | AUTOMATEDComment: | | EXTERNAL | | | l Type | Testing performed at | | LAB | | | | [facility];[address];[place] [address] | | | | + + + + + + | % Segmented | 68.15Comment: Testing | % | EXTERNAL | | | | performed at [facility];[address] | | LAB | | | Neutrophils | [address];[place] | | | | | | [address] | | | | + + + + + + | % | 21.73Comment: Testing | % | EXTERNAL | | | Lymphocytes | performed at [facility];[address] | | LAB | | | | [address];[place] | | | | | | [address] | | | | + + + + + + | % Monocytes | 9.37Comment: Testing | % | EXTERNAL | | | | performed at [facility];[address] | | LAB | | | | [address];[place] | | | | | | [address] | | | | + + + + + + | % | 0.18Comment: Testing | % | EXTERNAL | | | Eosinophils | performed at [facility];[address] | | LAB | | | | [address];[place] | | | | | | [address] | | | | + + + + + + | % Basophils | 0.57Comment: Testing | % | EXTERNAL | | | | performed at [facility];[address] | | LAB | | | | [address];[place] | | | | | | [address] | | | | + + + + + + | Absolute | 13.33 (H)Comment: | 1.90 - 7.40 | EXTERNAL | | | Segmented | Testing performed at | K/uL | LAB | | | Neutrophils | [facility];[address];[place] [address] | | | | + + + + + + | Absolute | 4.25 (H)Comment: Testing | 1.00 - 3.90 | EXTERNAL | | | Lymphocytes | performed at [facility];[address] | K/uL | LAB | | | | [address];[place] | | | | | | [address] | | | | + + + + + + | Absolute | 1.83 (H)Comment: Testing | 0.00 - 0.80 | EXTERNAL | | | Monocytes | performed at [facility];[address] | K/uL | LAB | | | | [address];[place] | | | | | | [address] | | | | + + + + + + | Absolute | 0.04Comment: Testing | 0.00 - 0.50 | EXTERNAL | | | Eosinophils | performed at [facility];[address] | K/uL | LAB | | | | [address];[place] | | | | | | [address] | | | | + + + + + + | Absolute | 0.11 (H)Comment: Testing | 0.00 - 0.10 | EXTERNAL | | | Basophils | performed at [facility];[address] | K/uL | LAB | | | | [address];[place] | | | | | | [address] | | | | + + + [...] EXTERNAL | | | | performed at [facility];[address] | | LAB | | | | [address];[place] | | | | | | [address] | | | | + + + [...] EXTERNAL | | | | performed at [facility];[address] | | LAB | | | | [address];[place], [place] | | | | | | [address] | | | | + + + [...] EXTERNAL | | | | performed at [facility];[address] | mmol/L | LAB | | | | [address];[place] | | | | | | [address] | | | | + + + + + + | K | 3.1 (L)Comment: Testing | 3.5 - 4.9 | EXTERNAL | | | | performed at [facility];[address] | mmol/L | LAB | | | | [address];[place] | | | | | | [address] | | | | + + + + + + | Cl | 101Comment: Testing | 99 - 109 mmol/L | EXTERNAL | | | | performed at [facility];[address] | | LAB | | | | [address];[place] | | | | | | [address] | | | | + + + + + + | CO2 | 26Comment: Testing | 23 - 32 mmol/L | EXTERNAL | | | | performed at [facility];[address] | | LAB | | | | [address];[place] | | | | | | [address] | | | | + + + + + + | Anion Gap | 12Comment: Testing | 5 - 20 mmol/L | EXTERNAL | | | | performed at [facility];[address] | | LAB | | | | [address];[place] | | | | | | [address] | | | | + + + + + + | Glucose, | 109 (H)Comment: Testing | 65 - 99 mg/dL | EXTERNAL | | | Fasting | performed at [facility];[address] | | LAB | | | | [address];[place] | | | | | | [address] | | | | + + + + + + | BUN | 9Comment: Testing | 8 - 25 mg/dL | EXTERNAL | | | | performed at [facility];[address] | | LAB | | | | [address];[place] | | | | | | [address] | | | | + + + + + + | Creatinine | 0.69Comment: Testing | 0.50 - 1.00 | EXTERNAL | | | | performed at [facility];[address] | mg/dL | LAB | | | | [address];[place] | | | | | | [address] | | | | + + + + + + | BUN/Creatin | 12Comment: Testing | | EXTERNAL | | | ine Ratio | performed at [facility];[address] | | LAB | | | | [address];[place] | | | | | | [id number] | | | | + + + + + + | Calcium | 8.5Comment: Testing | 8.5 - 10.5 | EXTERNAL | | | | performed at [facility];888 | mg/dL | LAB | | | | [address];[place], [place] | | | | | | [id number] | | | | + + + [...] | | | | | | at [facility];[address];[place] [address] | | | | + + + [...]
--- OUTSIDE RECORDS SUMMARY | ~2019-11-05 | XMS | Encounter Summary ---
Demographics + + + | Address | [address] | | | [place] [address] | + + + | Home Phone | | + + + | Preferred Language | Unknown | + + + | Marital Status | | + + + | Anabaptist Affiliation | Unknown | + + + | Race | Unknown | + + + | Ethnic Group | Unknown | + + + Author + + + | Author | [facility] | | | and [place] | + + + | Organization | [facility] | | | [...] Team Providers + +------+ + | Care Edge Trimmer Name | Role | Phone | + +------+ + PCP | Unavailable | + +------+ + Encounter Details +--------+ + + + + | Date | Type | Department | Care Team | Description | +--------+ + + + + | 11/05/ | Hospital | [facility] | Gina Haines DO | Chest pain, | | 2015 - | Encounter | [facility] | [address] | unspecified chest | | | | C[address] | [place] [address] | pain type; | | 11/10/ | | [address] | [phone] | Pyelonephritis; | | 2014 | | [place], [place] | | Acute nonintractable | | | | [address] | | headache, | | | | [phone] | | unspecified headache | | | [...] Date of Service: 11/10/14 100 Status: Signed Counter Waitress/Waiter: Rosmery Oden MD (Physician) [facility] Service: Hospitalist Discharge Summary Date of Admission: 11/05/2014 Date of Discharge: 11/10/2014, 2 PM Discharge Provider: ROSMERY ODEN MD Treatment Team: Consulting Physician: Raphael Turner DO Admitting Provider: Gina Haines DO Discharge Diagnoses: Principal Problem (Resolved): Sepsis(995.91) ([facility]) Active Problems: Hypertension Immunocompromised state (HCC) Crohn [...] who was admitted as a transfer from [facility] due to sepsis and altered mental [...] Vancomycin and she was then transferred to [facility]. Upon arr ival she was febrile and [...] primary care physician about referral to a Oracle Architect at [facility] for further evaluation of Chohn's Disease. [...] Tolerated Follow up: Neel Fernandes MD [address] [place] [id number] In 4 days As scheduled. 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 You may get the following medications [...] Notes by Rosmery Oden MD at 11/09/14 1444 Author: Rosmery Oden MD Service: Hospitalist Author Type: Physician Filed: 11/09/14 0942 Date of Service: 11/09/141445 Status: Signed Counter Waitress/Waiter: Rosmery Oden MD (Physician) [facility] Service: Hospitalist Progress Note Mackenzie Willingham 59 y.o. 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 She was then transferred to [facility], upon arriv al she was febrile and [...] or aneurysm. 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 No Focus for Next Treatment Stair Training (standing HEP ) PT Eval/Reassessment Date 11/09/14 Assistance Required 1 person Swatch Paster Needed No Precautions Other Precautions 2falls in [...] she was going to OP PT in [place]. She indicates her will be home for [...] Barriers to Discharge Physical Deficits Impacting Functional Fonda PT Ready for Discharge Yes (pt.'s will be home until school starts ) onver roshan Transaction, Provider Unknown - 11/09/2014 2:13 PM PDT Nurse Progress Note by Eliza Cheng RN at 11/09/14 1297 Author: Eliza Cheng RN Service: (none) Author Type: Registered Nurse Filed: 11/09/14 1411 Date of Service: 11/09/141412 Status: Signed Counter Waitress/Waiter: Eliza Cheng, RN (Registered Nurse) Per pt: [...] 1442 Date of Service: 11/09/14856 Status: Signed Counter Waitress/Waiter: Ev Mas MD (Physician) [facility] Service: Infectious Disease Progress Note Hospital [...] who was admitted as a transfer from [facility] due to sepsis and a ltered [...] Vancomycin. She was then transferr ed to [facility], upon arrival she was febrile and labs [...] normal glucose. PROBLEM LIST Principal Problem: Sepsis(995.91) ([facility]) Active Problems: Diarrhea Encephalopathy acute Delirium Urinary [...] 1725 Date of Service: 11/08/14841 Status: Signed Counter Waitress/Waiter: Rosmery Oden MD (Physician) [facility] Service: Hospitalist Progress Note Mackenzie Willingham 59 y.o. [id number] -1 female Neel Fernandes (General) Hospital Day: LOS: 3 days SUBJECTIVE Patient Summary: Patient is a 59 year old female with past medical history of COPD, Crohn's Disease, HTN, Hi story of Spelnic Vein Thrombosis and Immunosuppression due to Steroids and Remicade who was admitted as a transfer from [facility] due to sepsis and altered mental [...] and Vancomycin. She was then transferred to [facility], upon arriv al she was febrile and [...] or aneurysm. 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 Hyponatremia [...] 1500 Date of Service: 11/08/14806 Status: Signed Counter Waitress/Waiter: Ev Mas MD (Physician) [facility] Service: Infectious Disease Progress Note Hospital [...] who was admitted as a transfer from [facility] due to sepsis and a ltered [...] Vancomycin. She was then transferr ed to [facility], upon arrival she was febrile and labs [...] [facility] Service: Wound/Ostomy Care Author Type: Nurse Warehouse Handler Filed: 11/07/149 Date of Service: 11/07/141106 Status: Signed Counter Waitress/Waiter: Anthony Correa (Nurse Warehouse Handler) Patient seen today for low Marck score. [...] 1719 Date of Service: 11/07/14908 Status: Addendum Counter Waitress/Waiter: Rosmery Oden MD (Physician) Related Notes: Original Note by Rosmery Oden MD (Physician) filed at 11/07/14 17 18 [facility] Service: Hospitalist Progress Note Mackenzie Willingham 59 y.o. 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 She was then transferred to [facility], upon arriv al she was febrile and [...] Service: (none) Author Type: Physician Filed: 11/07/14 5853 Date of Service: 11/07/14 0809 Status: Signed Counter Waitress/Waiter: Raphael Turner DO (Physician) [facility] Service: Infectious Disease Progress Note Hospital [...] normal glucose. PROBLEM LIST Principal Problem: Sepsis(995.91) ([facility]) Active Problems: Diarrhea Encephalopathy acute Delirium Urinary [...] Date of Service: 11/06/14 0845 Status: Addendum Counter Waitress/Waiter: Rosmery Oden MD (Physician) Related Notes: Original Note by Rosmery Oden MD (Physician) filed at 11/06/14 16 57 [facility] Service: Hospitalist Progress Note Mackenzie Willingham 59 y.o. [id number] [birth year]37/20[birth year]- female Neel Fernandes (General) Hospital Day: LOS: 1 day SUBJECTIVE Patient Summary: Patient is a 59 year old female with past medical history of COPD, Crohn's Disease, HTN, Hi story of Spelnic Vein Thrombosis and Immunosuppression due to Steroids and Remicade who was admitted as a transfer from [facility] due to sepsis and altered mental status. Apparently, she developed nausea, vomiting and diarrhea for four days and was very lethargic . Her has been giving all her medications including narcotics Oxycodone Morphine sul fate. Her labs there showed leukocytosis and findings of UTI. She was started IV fluids and given one dose of Zosyn, Flagyl and Vancomycin. 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 Will monitor CBC and continue [...] AM PDT Progress Notes by Rosita Bertrand [facility] at 11/06/14543 Author: Rosita Bertrand RPH Service: (none) Author Type: Pharmacist Filed: 11/06/1444 Date of Service: 11/06/14543 Status: Signed Counter Waitress/Waiter: Rosita Bertrand RPH (Pharmacist) Clinical Pharmacy Note: [...] 11/06/14610 Date of Service: 11/06/14445 Status: Signed Counter Waitress/Waiter: Livia Deshpande RN (Registered Nurse) Called pts husbands phone number to complete the MRI form. Left a message with him to call [facility]. docume nted in this encounter H&P Notes Gina Haines DO - 11/05/2014 11:53 PM PDTFormatting of this note might be different from t velvet original. H&P by Gina Haines DO at 11/05/14 6434 Author: Gina Haines DO Service: Hospitalist Author Type: Physician Filed: 11/06/14440 Date of Service: 11/05/142352 Status: Signed Counter Waitress/Waiter: Gina Haines DO (Physician) [facility] Service: Hospitalist Admission History & Physical Date of Admission: 11/05/2014 Primary Care Physician: Neel Fernandes History Obtained From: Mostly , quality of the history poor. CHIEF COMPLAINT: Altered mental status, fever and emesis. Transferred from [facility] w ith an elevated white blood cell [...] who presents as a tr cristina from [facility] for further evaluation. CC of Vomiting and [...] asleep ER findings: Leukocytosis, thrombocytosis, mild hyponatremia. [facility] Incontinent of urine in his stool ER treatment: Medications at [facility] morphine 20+ mg total, 2 L normal saline, Zosyn , Flagyl, Vancomycin and IV Phenergan. At [facility] Tylenol and Zofran. 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 Jared Singh RN 11/05/142350 onver roshan Transaction, Provider Unknown - 11/05/2014 11:41 PM PDT ED Notes by Jared Singh RN at 11/05/142340 Author: Jared Singh RN Service: (none) Author Type: Registered Nurse Filed: 11/05/142340 Date of Service: 11/05/142340 Status: Signed Counter Waitress/Waiter: Jared Singh RN (Registered Nurse) RT paged for ABG. Jared Singh RN 11/05/142340 onver roshan Transaction, Provider Unknown - 11/05/2014 11:12 PM PDT ED Notes by Jared Singh RN at 11/05/142311 Author: Jared Singh RN Service: (none) Author Type: Registered Nurse Filed: 11/05/142314 Date of Service: 11/05/142311 Status: Addendum Counter Waitress/Waiter: Jared Singh RN (Registered Nurse) Related Notes: [...] patient with diarrhea. Jared Singh RN 11/05/14 5113 old, Rich Villanueva DO - 11/05/2014 9:35 PM PDT ED Provider Notes by Rich Padilla DO at 11/05/142134 Author: Rich Padilla DO Service: Emergency Department Author Type: Physician Filed: 11/06/14 1021 Date of Service: 11/05/142134 Status: Signed Counter Waitress/Waiter: Rich Padilla DO (Physician) [facility] Department of Emergency Medicine Pre-arrival Provider: Another ED Provider Name: LUKASZ Sharp at [facility] ED Pertinent History and Concerns: Admitted 2 weeks ago at [facility] for UTI, last dose abx [...] Procedure: ESOPHAGOGASTRODUODENOSCOPY; Surgeon: Bony Petty MD; Location: [facility] BEDSIDE PROCEDURE; Service: Gastroenterology; Laterality: N/A; Laparotomy N/A 04/23/2014 Procedure: EXPLORATION - LAPAROTOMY; Surgeon: Bogdan Moser DO; Location: [facility] MAIN OR; Service: General; Laterality: N/A; Splenectomy, 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 Rich Padilla D.O. Dictation software, AmSafe, used which may contain error for similar [...] 11/05/142132 Date of Service: 11/05/142132 Status: Signed Counter Waitress/Waiter: Jared Singh RN (Registered Nurse) Dr Padilla at bedside for exam. Jared Singh RN 11/05/142132 onver roshan Transaction, Provider Unknown - 11/05/2014 9:16 PM PDT ED Notes by Jared Singh RN at 11/05/142115 Author: Jared Singh RN Service: (none) Author Type: Registered Nurse Filed: 11/05/142115 Date of Service: 11/05/142115 Status: Signed Counter Waitress/Waiter: Jared Singh RN (Registered Nurse) radiologic technologist chief notified of cardiac monitoring. Jared Singh RN 11/05/142115 onver roshan Transaction, Provider Unknown - 11/05/2014 9:00 PM PDT ED Notes by Jared Singh RN at 11/05/142099 Author: Jared Singh RN Service: (none) Author Type: Registered Nurse Filed: 11/05/142099 Date of Service: 11/05/142099 Status: Signed Counter Waitress/Waiter: Jared L Singh, RN (Registered Nurse) Bed: [...] 0013 Date of Service: 11/08/142014 Status: Signed Counter Waitress/Waiter: Gayatri Dumont RN (Registered Nurse) Problem: Pain [...] 11/07/141157 Date of Service: 11/07/141157 Status: Signed Counter Waitress/Waiter: Abhi Thomas RN (Registered Nurse) Daily Care [...] 11/06/141343 Date of Service: 11/06/141343 Status: Signed Counter Waitress/Waiter: Abhi Thomas RN (Registered Nurse) Daily Care [...] [place] | | | | | | [address] | | | | + + + + + + | Non- | 3.74Comment: Testing | 3.70 - 5.10 | EXTERNAL | | | Red Blood | performed at [facility], [address] | M/uL | LAB | | | Cells | [address], | | | | | Counted | [place] [address] | | | | + + + + + + | Hemoglobin | 11.3Comment: Testing | 11.3 - 15.5 | EXTERNAL | | | | performed at [facility], [address] | g/dL | LAB | | | | [address], | | | | | | [place] [address] | | | | + + + + + + | Hematocrit, | 35.4Comment: Testing | 34.0 - 46.0 % | EXTERNAL | | | POC | performed at [facility], [address] | | LAB | | | | [address], | | | | | | [place] [address] | | | | + + + + + + | MCV | 94.7Comment: Testing | 80.0 - 100.0 fl | EXTERNAL | | | | performed at [facility], [address] | | LAB | | | | [address], | | | | | | [place] [address] | | | | + + + + + + | MCH | 30.3Comment: Testing | 27.0 - 34.0 pg | EXTERNAL | | | | performed at [facility], [address] | | LAB | | | | [address], | | | | | | [place] [address] | | | | + + + + + + | MCHC | 32.0Comment: Testing | 32.0 - 35.5 | EXTERNAL | | | | performed at [facility], [address] | g/dL | LAB | | | | [address], | | | | | | [place] [address] | | | | + + + + + + | RDW-CV | 59.5 (H)Comment: Testing | 37 - 53 fl | EXTERNAL | | | | performed at [facility], [address] | | LAB | | | | [address], | | | | | | [place] [address] | | | | + + + + + + | Platelet | 393Comment: Testing | 150 - 400 K/uL | EXTERNAL | | | Count | performed at [facility], [address] | | LAB | | | Plasma | [address], | | | | | | [place] [address] | | | | + + + + + + | MPV | 8.4Comment: Testing | fl | EXTERNAL | | | | performed at [facility], [address] | | LAB | | | | [address], | | | | | | [place] [address] | | | | + + + [...] | | | | | performed at [facility];[address] | | | | | | [facility];[place], [place] | | | | | | [address] | | | | + + + [...] [place] | | | | | | [address] | | | | + + + + + + | Non- | 3.75Comment: Testing | 3.70 - 5.10 | EXTERNAL | | | Red Blood | performed at [facility], [address] | M/uL | LAB | | | Cells | [address], | | | | | Counted | [place] [address] | | | | + + + + + + | Hemoglobin | 11.2 (L)Comment: Testing | 11.3 - 15.5 | EXTERNAL | | | | performed at [facility], [address] | g/dL | LAB | | | | [address], | | | | | | [place] [address] | | | | + + + + + + | Hematocrit, | 36.1Comment: Testing | 34.0 - 46.0 % | EXTERNAL | | | POC | performed at [facility], [address] | | LAB | | | | [address], | | | | | | [place] [address] | | | | + + + + + + | MCV | 96.2Comment: Testing | 80.0 - 100.0 fl | EXTERNAL | | | | performed at [facility], [address] | | LAB | | | | [place], | | | | | | [place] [address] | | | | + + + + + + | MCH | 30.0Comment: Testing | 27.0 - 34.0 pg | EXTERNAL | | | | performed at [facility], [address] | | LAB | | | | [place], | | | | | | [place] [address] | | | | + + + + + + | MCHC | 31.2 (L)Comment: Testing | 32.0 - 35.5 | EXTERNAL | | | | performed at [facility], [address] | g/dL | LAB | | | | [address], | | | | | | [place] [address] | | | | + + + + + + | RDW-CV | 58.6 (H)Comment: Testing | 37 - 53 fl | EXTERNAL | | | | performed at [facility], [address] | | LAB | | | | [address], | | | | | | [place] [address] | | | | + + + + + + | Platelet | 391Comment: Testing | 150 - 400 K/uL | EXTERNAL | | | Count | performed at [facility], [address] | | LAB | | | Plasma | [address], | | | | | | [place] [address] | | | | + + + + + + | MPV | 8.6Comment: Testing | fl | EXTERNAL | | | | performed at [facility], [address] | | LAB | | | | [address], | | | | | | [place] [address] | | | | + + + [...] | | | | | performed at [facility] | | | | | | [facility];[place], [place] | | | | | | [address] | | | | + + + [...] | | | | | [place] [address] | | | | + + + + + + | K | 3.4 (L)Comment: Testing | 3.5 - 4.9 | EXTERNAL | | | | performed at [facility], [address] | mmol/L | LAB | | | | [address], | | | | | | [place] [address] | | | | + + + + + + | Cl | 109Comment: Testing | 99 - 109 mmol/L | EXTERNAL | | | | performed at [facility], [address] | | LAB | | | | [address], | | | | | | [place] [address] | | | | + + + + + + | CO2 | 20 (L)Comment: Testing | 23 - 32 mmol/L | EXTERNAL | | | | performed at [facility], [address] | | LAB | | | | [address], | | | | | | [place] [address] | | | | + + + + + + | Anion Gap | 11Comment: Testing | 5 - 20 mmol/L | EXTERNAL | | | | performed at [facility], [address] | | LAB | | | | [address], | | | | | | [place] [address] | | | | + + + + + + | Glucose, | 74Comment: Testing | 65 - 99 mg/dL | EXTERNAL | | | Fasting | performed at [facility], [address] | | LAB | | | | [address], | | | | | | [place] [address] | | | | + + + + + + | BUN | 8Comment: Testing | 8 - 25 mg/dL | EXTERNAL | | | | performed at [facility], [address] | | LAB | | | | [address], | | | | | | [place] [address] | | | | + + + + + + | Creatinine | 0.57Comment: Testing | 0.50 - 1.00 | EXTERNAL | | | | performed at [facility], [address] | mg/dL | LAB | | | | [address], | | | | | | [place] [address] | | | | + + + + + + | BUN/Creatin | 14Comment: Testing | | EXTERNAL | | | ine Ratio | performed at [facility], [address] | | LAB | | | | [address], | | | | | | [place] [address] | | | | + + + [...] | | | | | [place] [address] | | | | + + + + + + | Albumin | 2.7 (L)Comment: Testing | 3.6 - 5.0 g/dL | EXTERNAL | | | | performed at [facility], [address] | | LAB | | | | [address], | | | | | | [place] [address] | | | | + + + + + + | Globulin | 3.2Comment: Testing | 1.3 - 4.9 g/dL | EXTERNAL | | | | performed at [facility], [address] | | LAB | | | | [address], | | | | | | [place] [address] | | | | + + + + + + | A/G Ratio | 0.8 (L)Comment: Testing | 1.0 - 2.4 | EXTERNAL | | | | performed at [facility], [address] | | LAB | | | | [address], | | | | | | [place] [address] | | | | + + + + + + | Bilirubin | 0.4Comment: Testing | 0.1 - 1.5 mg/dL | EXTERNAL | | | Total | performed at [facility], [address] | | LAB | | | | [address], | | | | | | [place] [address] | | | | + + + + + + | ALP, | 137 (H)Comment: Testing | 35 - 115 U/L | EXTERNAL | | | External | performed at [facility], [address] | | LAB | | | | [address], | | | | | | [place] [address] | | | | + + + + + + | AST | 13Comment: Testing | 10 - 45 U/L | EXTERNAL | | | | performed at [facility], [address] | | LAB | | | | [address], | | | | | | [place] [address] | | | | + + + + + + | ALT | 13Comment: Testing | 10 - 65 U/L | EXTERNAL | | | | performed at [facility], [address] | | LAB | | | | [address], | | | | | | [place] [address] | | | | + + + [...] | | | | | | at [facility], [address] | | | | | | [place], | | | | | | [place] [address] | | | | + + + [...] | | | | | performed at [facility] | | | | | | [facility];[place], [place] | | | | | | [address] | | | | + + + [...] | | | | [facility], [address] | | | | | | [place] | | | | | | [address] | | | | + + + + + + | Non- | 4.07Comment: Testing | 3.70 - 5.10 | EXTERNAL | | | Red Blood | performed at [facility], [address] | M/uL | LAB | | | Cells | [place] [address], | | | | | Counted | [place] [address] | | | | + + + + + + | Hemoglobin | 12.3Comment: Testing | 11.3 - 15.5 | EXTERNAL | | | | performed at [facility], [address] | g/dL | LAB | | | | [address], | | | | | | [place] [address] | | | | + + + + + + | Hematocrit, | 38.1Comment: Testing | 34.0 - 46.0 % | EXTERNAL | | | POC | performed at [facility], [address] | | LAB | | | | [address], | | | | | | [place] [address] | | | | + + + + + + | MCV | 93.6Comment: Testing | 80.0 - 100.0 fl | EXTERNAL | | | | performed at [facility], [address] | | LAB | | | | [address], | | | | | | [place] [address] | | | | + + + + + + | MCH | 30.2Comment: Testing | 27.0 - 34.0 pg | EXTERNAL | | | | performed at [facility], [address] | | LAB | | | | [address], | | | | | | [place], [place] [address] | | | | + + + + + + | MCHC | 32.2Comment: Testing | 32.0 - 35.5 | EXTERNAL | | | | performed at [facility], [address] | g/dL | LAB | | | | [address], | | | | | | [place] [address] | | | | + + + + + + | RDW-CV | 59.1 (H)Comment: Testing | 37 - 53 fl | EXTERNAL | | | | performed at [facility], [address] | | LAB | | | | [address], | | | | | | [place] [address] | | | | + + + + + + | Platelet | 390Comment: Testing | 150 - 400 K/uL | EXTERNAL | | | Count | performed at [facility], [address] | | LAB | | | Plasma | [address], | | | | | | [place] [address] | | | | + + + + + + | MPV | 8.4Comment: Testing | fl | EXTERNAL | | | | performed at [facility], [address] | | LAB | | | | [address], | | | | | | [place] [address] | | | | + + + + + + | Differentia | AUTOMATEDComment: | | EXTERNAL | | | l Type | Testing performed at | | LAB | | | | [facility], [address] | | | | | | [place] | | | | | | [address] | | | | + + + + + + | % Segmented | 69.87Comment: Testing | % | EXTERNAL | | | | performed at [facility], [address] | | LAB | | | Neutrophils | [address] [place], | | | | | | [place] [address] | | | | + + + + + + | % | 16.92Comment: Testing | % | EXTERNAL | | | Lymphocytes | performed at [facility], [address] | | LAB | | | | [address], | | | | | | [place] [address] | | | | + + + [...] | | | | | [place] [address] | | | | + + + + + + | % Basophils | 0.43Comment: Testing | % | EXTERNAL | | | | performed at [facility], [address] | | LAB | | | | [address] [place], | | | | | | [place] [address] | | | | + + + + + + | Absolute | 12.01 (H)Comment: | 1.90 - 7.40 | EXTERNAL | | | Segmented | Testing performed at | K/uL | LAB | | | Neutrophils | [facility], [address] | | | | | | [place] | | | | | | [address] | | | | + + + + + + | Absolute | 2.91Comment: Testing | 1.00 - 3.90 | EXTERNAL | | | Lymphocytes | performed at [facility], [address] | K/uL | LAB | | | | [address] [place], | | | | | | [place] [address] | | | | + + + + + + | Absolute | 2.04 (H)Comment: Testing | 0.00 - 0.80 | EXTERNAL | | | Monocytes | performed at [facility], [address] | K/uL | LAB | | | | [address] [place], | | | | | | [place] [address] | | | | + + + + + + | Absolute | 0.16Comment: Testing | 0.00 - 0.50 | EXTERNAL | | | Eosinophils | performed at [facility], [address] | K/uL | LAB | | | | [address], | | | | | | [place] [address] | | | | + + + + + + | Absolute | 0.07Comment: Testing | 0.00 - 0.10 | EXTERNAL | | | Basophils | performed at [facility], [address] | K/uL | LAB | | | | [address], | | | | | | [place] [address] | | | | + + + + + + | RBC | 2+Comment: ANISONORMAL | | EXTERNAL | | | Morphology | PLT MORPHTesting | | LAB | | | | performed at [facility], [address] | | | | | | [address] [facility], | | | | | | [place] [address] | | | | | | | [...] | | | | | [place] [address] | | | | + + + [...] [place] | | | | | | [address] | | | | + + + + + + | Cl | 104Comment: Testing | 99 - 109 mmol/L | EXTERNAL | | | | performed at [facility], [address] | | LAB | | | | [address], | | | | | | [place] [address] | | | | + + + + + + | CO2 | 21 (L)Comment: Testing | 23 - 32 mmol/L | EXTERNAL | | | | performed at [facility], [address] | | LAB | | | | [address], | | | | | | [place] [address] | | | | + + + + + + | Anion Gap | 12Comment: Testing | 5 - 20 mmol/L | EXTERNAL | | | | performed at [facility], [address] | | LAB | | | | [address], | | | | | | [place] [address] | | | | + + + + + + | Glucose, | 83Comment: Testing | 65 - 99 mg/dL | EXTERNAL | | | Fasting | performed at [facility], [address] | | LAB | | | | [address], | | | | | | [place] [address] | | | | + + + + + + | BUN | 8Comment: Testing | 8 - 25 mg/dL | EXTERNAL | | | | performed at [facility], [address] | | LAB | | | | [address], | | | | | | [place] [address] | | | | + + + + + + | Creatinine | 0.52Comment: Testing | 0.50 - 1.00 | EXTERNAL | | | | performed at [facility], [address] | mg/dL | LAB | | | | [address], | | | | | | [place] [address] | | | | + + + + + + | BUN/Creatin | 15Comment: Testing | | EXTERNAL | | | ine Ratio | performed at [facility], [address] | | LAB | | | | [address], | | | | | | [place] [address] | | | | + + + + + + | Calcium | 8.6Comment: Testing | 8.5 - 10.5 | EXTERNAL | | | | performed at [facility], [address] | mg/dL | LAB | | | | [address], | | | | | | [place] [address] | | | | + + + + + + | Protein, | 5.8 (L)Comment: Testing | 6.3 - 8.2 g/dL | EXTERNAL | | | Total | performed at [facility], [address] | | LAB | | | | [address], | | | | | | [place] [address] | | | | + + + + + + | Albumin | 2.9 (L)Comment: Testing | 3.6 - 5.0 g/dL | EXTERNAL | | | | performed at [facility], [address] | | LAB | | | | [address], | | | | | | [place] [address] | | | | + + + + + + | Globulin | 2.9Comment: Testing | 1.3 - 4.9 g/dL | EXTERNAL | | | | performed at [facility], [address] | | LAB | | | | [address] [place], | | | | | | [place] [address] | | | | + + + + + + | A/G Ratio | 1.0Comment: Testing | 1.0 - 2.4 | EXTERNAL | | | | performed at [facility], [address] | | LAB | | | | [address], | | | | | | [place] [address] | | | | + + + + + + | Bilirubin | 0.7Comment: Testing | 0.1 - 1.5 mg/dL | EXTERNAL | | | Total | performed at [facility], [address] | | LAB | | | | [address], | | | | | | [place] [address] | | | | + + + + + + | ALP, | 169 (H)Comment: Testing | 35 - 115 U/L | EXTERNAL | | | External | performed at [facility], [address] | | LAB | | | | [address], | | | | | | [place] [address] | | | | + + + + + + | AST | 16Comment: Testing | 10 - 45 U/L | EXTERNAL | | | | performed at [facility], [address] | | LAB | | | | [address], | | | | | | [place] [address] | | | | + + + + + + | ALT | 17Comment: Testing | 10 - 65 U/L | EXTERNAL | | | | performed at [facility], [address] | | LAB | | | | [address], | | | | | | [place] [address] | | | | + + + [...] | | | | | | at [facility], [address] | | | | | | [address], | | | | | | [place] [address] | | | | + + + [...] | | | Total | performed at [facility], [address] | | LAB | | | | [address], | | | | | | [place] [address] | | | | + + + [...] Conversion - 11/24/2018 6:38 AM PDT [facility] | [...] | | | | | performed at [facility] | | | | | | [address];[place], [place] | | | | | | [address] | | | | + + + [...] K/uL | LAB | | | | [facility], [address] [facility] | | | | | | [place] | | | | | | [address] | | | | + + + + + + | Non- | 4.28Comment: Testing | 3.70 - 5.10 | EXTERNAL | | | Red Blood | performed at [facility], [address] | M/uL | LAB | | | Cells | [address] [place], | | | | | Counted | [place] [address] | | | | + + + + + + | Hemoglobin | 13.0Comment: Testing | 11.3 - 15.5 | EXTERNAL | | | | performed at [facility], [address] | g/dL | LAB | | | | [place] [place], | | | | | | [place] [address] | | | | + + + + + + | Hematocrit, | 40.0Comment: Testing | 34.0 - 46.0 % | EXTERNAL | | | POC | performed at [facility], [address] | | LAB | | | | [address], | | | | | | [place] [address] | | | | + + + + + + | MCV | 93.4Comment: Testing | 80.0 - 100.0 fl | EXTERNAL | | | | performed at [facility], [address] | | LAB | | | | [address], | | | | | | [place] [address] | | | | + + + + + + | MCH | 30.3Comment: Testing | 27.0 - 34.0 pg | EXTERNAL | | | | performed at [facility], [address] | | LAB | | | | [address], | | | | | | [place] [address] | | | | + + + + + + | MCHC | 32.5Comment: Testing | 32.0 - 35.5 | EXTERNAL | | | | performed at [facility], [address] | g/dL | LAB | | | | [address], | | | | | | [place] [address] | | | | + + + + + + | RDW-CV | 57.8 (H)Comment: Testing | 37 - 53 fl | EXTERNAL | | | | performed at [facility], [address] | | LAB | | | | [address], | | | | | | [place] [address] | | | | + + + + + + | Platelet | 403 (H)Comment: Testing | 150 - 400 K/uL | EXTERNAL | | | Count | performed at [facility], [address] | | LAB | | | Plasma | [address], | | | | | | [place] [address] | | | | + + + [...] [place] | | | | | | [address] | | | | + + + + + + | % Segmented | 69.85Comment: Testing | % | EXTERNAL | | | | performed at [facility], [address] | | LAB | | | Neutrophils | [address], | | | | | | [place] [address] | | | | + + + + + + | % | 17.96Comment: Testing | % | EXTERNAL | | | Lymphocytes | performed at [facility], [address] | | LAB | | | | [address], | | | | | | [place] [address] | | | | + + + + + + | % Monocytes | 11.10Comment: Testing | % | EXTERNAL | | | | performed at [facility], [address] | | LAB | | | | [address], | | | | | | [place] [address] | | | | + + + + + + | % | 0.77Comment: Testing | % | EXTERNAL | | | Eosinophils | performed at [facility], [address] | | LAB | | | | [address], | | | | | | [place] [address] | | | | + + + + + + | % Basophils | 0.32Comment: Testing | % | EXTERNAL | | | | performed at [facility], [address] | | LAB | | | | [address] [place], | | | | | | [place] [address] | | | | + + + + + + | Absolute | 10.28 (H)Comment: | 1.90 - 7.40 | EXTERNAL | | | Segmented | Testing performed at | K/uL | LAB | | | Neutrophils | [facility], [address] | | | | | | [place] | | | | | | [address] | | | | + + + + + + | Absolute | 2.64Comment: Testing | 1.00 - 3.90 | EXTERNAL | | | Lymphocytes | performed at [facility], [address] | K/uL | LAB | | | | [address] [place], | | | | | | [place] [address] | | | | + + + + + + | Absolute | 1.63 (H)Comment: Testing | 0.00 - 0.80 | EXTERNAL | | | Monocytes | performed at [facility], [address] | [address] | LAB | | | | [address], | | | | | | [place] [address] | | | | + + + + + + | Absolute | 0.11Comment: Testing | 0.00 - 0.50 | EXTERNAL | | | Eosinophils | performed at [facility], [address] | K/uL | LAB | | | | [address], | | | | | | [place] [address] | | | | + + + + + + | Absolute | 0.05Comment: Testing | 0.00 - 0.10 | EXTERNAL | | | Basophils | performed at [facility], [address] | K/uL | LAB | | | | [address] [place], | | | | | | [place] [address] | | | | + + [...] | | | | | [place] [address] | | | | + + + + + + | K | 3.1 (L)Comment: Testing | 3.5 - 4.9 | EXTERNAL | | | | performed at [facility], [address] | mmol/L | LAB | | | | [address] [place], | | | | | | [place] [address] | | | | + + + + + + | Cl | 96 (L)Comment: Testing | 99 - 109 mmol/L | EXTERNAL | | | | performed at [facility], [address] | | LAB | | | | [address], | | | | | | [place] [address] | | | | + + + + + + | CO2 | 24Comment: Testing | 23 - 32 mmol/L | EXTERNAL | | | | performed at [facility], [address] | | LAB | | | | [address], | | | | | | [place] [address] | | | | + + + + + + | Anion Gap | 11Comment: Testing | 5 - 20 mmol/L | EXTERNAL | | | | performed at [facility], [address] | | LAB | | | | [address], | | | | | | [place] [address] | | | | + + + + + + | Glucose, | 102 (H)Comment: Testing | 65 - 99 mg/dL | EXTERNAL | | | Fasting | performed at [facility], [address] | | LAB | | | | [address], | | | | | | [place] [address] | | | | + + + + + + | BUN | 6 (L)Comment: Testing | 8 - 25 mg/dL | EXTERNAL | | | | performed at [facility], [address] | | LAB | | | | [address], | | | | | | [place] [address] | | | | + + + + + + | Creatinine | 0.49 (L)Comment: Testing | 0.50 - 1.00 | EXTERNAL | | | | performed at [facility], [address] | mg/dL | LAB | | | | [address], | | | | | | [place] [address] | | | | + + + + + + | BUN/Creatin | 12Comment: Testing | | EXTERNAL | | | ine Ratio | performed at [facility], [address] | | LAB | | | [address], | | | | | | [place] [address] | | | | + + + + + + | Calcium | 8.5Comment: Testing | 8.5 - 10.5 | EXTERNAL | | | | performed at [facility], [address] | mg/dL | LAB | | | | [address] [place], | | | | | | [place] [address] | | | | + + + + + + | Protein, | 6.1 (L)Comment: Testing | 6.3 - 8.2 g/dL | EXTERNAL | | | Total | performed at [facility], [address] | | LAB | | | | [address], | | | | | | [place] [address] | | | | + + + + + + | Albumin | 3.0 (L)Comment: Testing | 3.6 - 5.0 g/dL | EXTERNAL | | | | performed at [facility], [address] | | LAB | | | | [address], | | | | | | [place] [address] | | | | + + + + + + | Globulin | 3.1Comment: Testing | 1.3 - 4.9 g/dL | EXTERNAL | | | | performed at [facility], [address] | | LAB | | | | [address], | | | | | | [place] [address] | | | | + + + + + + | A/G Ratio | 1.0Comment: Testing | 1.0 - 2.4 | EXTERNAL | | | | performed at [facility], [address] | | LAB | | | | [address], | | | | | | [place] [address] | | | | + + + + + + | Bilirubin | 0.7Comment: Testing | 0.1 - 1.5 mg/dL | EXTERNAL | | | Total | performed at [facility], [address] | | LAB | | | | [address], | | | | | | [place] [address] | | | | + + + + + + | ALP, | 208 (H)Comment: Testing | 35 - 115 U/L | EXTERNAL | | | External | performed at [facility], [address] | | LAB | | | | [address], | | | | | | [place] [address] | | | | + + + + + + | AST | 21Comment: Testing | 10 - 45 U/L | EXTERNAL | | | | performed at [facility], [address] | | LAB | | | | [address], | | | | | | [place] [address] | | | | + + + + + + | ALT | 21Comment: Testing | 10 - 65 U/L | EXTERNAL | | | | performed at [facility], [address] | | LAB | | | | [address], | | | | | | [place] [address] | | | | + + + [...] | | | | | [place] [address] | | | | + + + [...] | Testing performed | | | at [facility], [address] [place] [address] | | + + + + +---------+ [...] LAB | | | | performed at [facility];[address] | | | | | | [address];[place] | | | | | | [address] | | | | + + + + + + | CRYPT[employer] AG | Comment: ACCESSION NO. | | EXTERNAL | | | CSF | | | LAB | | | | [id number] | | | | | | SOURCE | | | | | | CEREBROSPINAL | | | | | | FLUIDRESULT | | | | | | | | | | | | NEGATIVETesting | | | | | | performed at [facility] | | | | | | [facility], | | | | | | [address] | | | | | | [address] | | | | + + + + + + | CRYPTOCOCCU | REPORT STATUS | | EXTERNAL | | | S AG, CSF | FINAL | | LAB | | | | 11/08/2014Comment: | | | | | | Testing performed at | | | | | | [facility] | | | | | | [place], [address], | | | | | | [place] [address] | | | | + + + [...] | EXTERNAL LAB | | performed at [facility];[address] [place] [address] 027 NAP1 BI | | | 027 NAP1 BI PRESUMPTIVE NEGATIVE | | | Detection of 027 NAP1 BI strains of C. difficile is presumptive and | | | for epidemiological purposes and not intended to guide or monitor | | | treatment for C. difficile infections. Testing performed at [facility];[address] | | | [facility];[place] [address] | | + + + + +---------+ [...] TESTING. | | | Testing performed at [facility], [address] | | | [place] [address] | | + + + + +---------+ [...] EXTERNAL LAB | | Testing performed at [facility];[address] [place] [address];[place] [id number] RESULT | | | NEGATIVE Reference range: [...] MICROLITER OF PATIENT SPECIMEN. Testing performed at [facility], | | | [address] [place] [address] COMMENT | | | SEE BELOW THIS TEST WAS DEVELOPED AND ITS | | | PERFORMANCE CHARACTERISTICS DETERMINED BY [facility]. THE U.S. FOOD AND | | | DRUG ADMINISTRATION (FDA) HAS NOT APPROVED OR CLEARED THIS TEST. | | | HOWEVER, FDA APPROVAL OR CLEARANCE IS CURRENTLY NOT REQUIRED FOR | | | CLINICAL USE OF THIS TEST. THE RESULTS ARE NOT INTENDED TO BE USED | | | THE SOLE MEANS FOR CLINICAL DIAGNOSIS OR PATIENT MANAGEMENT | | | DECISIONS. [facility] IS AUTHORIZED UNDER CLINICAL LABORATORY IMPROVEMENT | | | AMENDMENTS (CLIA) TO PERFORM HIGH-COMPLEXITY TESTING. Testing | | | performed at [place] [address] | | + + + + +---------+ [...] | Testing performed at | | | [facility];[address] [facility];[place] [address] CULTURE | | | NO GROWTH | | | Testing performed at [facility], [address] [facility], | | | [place] [address] | | + + + + +---------+ [...] EXTERNAL LAB | | Testing performed at [facility];[address] [place] [address];[place] [address] ENTEROVIRUS | | | PCR NEGATIVE INTENDED USE: THE | | | [employer] XPERT EV ASSAY IS A REVERSE DESKTOP TECHNICIAN POLYMERASE CHAIN | | | REACTION (RT-PCR) USING THE PictelaERT DX SYSTEM FOR THE | | | [...] RT-PCR Testing | | | performed at [facility], [address] [place] [address] | | + + + + +---------+ [...] EXTERNAL LAB | | Testing performed at [facility];[address] [place] [address];[place] [address] SOURCE | | | SEE BELOW CEREBROSPINAL FLUID | | | Testing performed by [facility] [address] HSV DNA Type 1 | | | NOT DETECTED Testing performed at [facility], [address] | | | [facility] [address] HSV DNA Type 2 | | | NOT DETECTED Testing performed at [facility], [address] [facility], | | | [facility] [address] COMMENT | | | SEE BELOW A [...] THE DIAGNOSIS OF DISEASE. Testing performed at [facility], [address] | | | [address] [facility] [address] COMMENT | | | SEE BELOW THIS TEST WAS DEVELOPED AND ITS | | | PERFORMANCE CHARACTERISTICS DETERMINED BY [facility]. THE U.S. FOOD AND | | | DRUG ADMINISTRATION (FDA) HAS NOT APPROVED OR CLEARED THIS TEST. | | | HOWEVER, FDA APPROVAL OR CLEARANCE IS CURRENTLY NOT REQUIRED FOR | | | CLINICAL USE OF THIS TEST. THE RESULTS ARE NOT INTENDED TO BE USED | | | THE SOLE MEANS FOR CLINICAL DIAGNOSIS OR PATIENT MANAGEMENT | | | DECISIONS. [facility] IS AUTHORIZED UNDER CLINICAL LABORATORY IMPROVEMENT | | | AMENDMENTS (CLIA) TO PERFORM HIGH-COMPLEXITY TESTING. Testing | | | performed at [facility], [address] [facility] [address] | | + + + + +---------+ [...] EXTERNAL LAB | | Testing performed at [facility];[address] [place] [address];[place] [address] APPEARANCE | | | CLEAR Testing performed at | | | [facility];[address];[place] [address] Tube Number, CSF | | | 3 Testing performed at [facility];[address] | | [address];[place] [address] CSF RBC | | | 7 High Testing performed at [facility];[address] | | [address];[place] [address] CSF WBC | | | 2 Testing performed at [facility];[place], [place] | | | [address] | | + + + + +---------+ [...] | EXTERNAL LAB | | performed at [place] [id number] | | + + + + +---------+ [...] EXTERNAL LAB | | Testing performed at [facility];[address] [place] [address];[place] [address] | | + + + + +---------+ [...] EXTERNAL LAB | | Testing performed at [facility];[address] [place] [address];[place] [address] | | + + + + +---------+ [...] LAB | | | | performed at [facility];[address] | | | | | | [address];[place], [place] | | | | | | [address] | | | | + + + [...] | | | | | DETERMINED BY [facility] | | | | | | LABORATORIES.SEE | | | | | | COMPLIANCE STATEMENT B: | | | | | | [employer]NearMe/CSTesting | | | | | | performed at [facility], [address] | | | | | | [facility] | | | | | | [facility] [address] | | | | + + + [...] LAB | | | | performed at [facility] | | | | | | [employer], [address] | [address] | | [address], [place] | | | | | | [address] | | | | + + + [...] | | | | | performed at [facility] | | | | | | [employer], [address] | | | | | | [facility] [place] | | | | | | [address] | | | | + + + [...] mental status, | | | transferred from [facility] on November 05, 2014. PRE | [...] | | | possibility of "sound alike" cargo mate errors, addition and/or | | | deletions [...] altered mental | | status, transferred from [facility] on November 05, 2014. PRE PROCEDURAL [...] The possibility of "sound alike" | | cargo mate errors, addition and/or deletions may occur. If [...] system. The possibility of "sound a like" cargo mate errors, addition and/or deletions may occur. If [...] Testing | | | performed at [facility], [address] [place] [address] | | | [place] [address] | | + + + + +---------+ [...] TEST | | | | | | DIRECTORY(PayNearMe).T | | | | | | esting performed at | | | | | | [facility], [address], | | | | | | [facility] [address] | | | | + + + + + + | IGG, CSF | 5.1Comment: Testing | 0.0 - 6.0 mg/dL | EXTERNAL | | | | performed at [facility], [address] | | LAB | | | | [address] [facility] | | | | | | [facility] [address] | | | | + + + + + + | Albumin, | 32Comment: Testing | 0 - 35 mg/dL | EXTERNAL | | | CSF | performed at [facility], [address] | | LAB | | | | [address] [facility] | | | | | | [facility] [address] | | | | + + + + + + | Albumin | 11.7 (H)Comment: Testing | 0.0 - 9.0 ratio | EXTERNAL | | | Index | performed at [facility], [address] | | LAB | | | | [address] [facility] | | | | | | [facility] [address] | | | | + + + + + + | CSF | 0.16Comment: Testing | 0.09 - 0.25 | EXTERNAL | | | IgG/Albumin | performed at [facility], [address] | ratio | LAB | | | Ratio | [facility] | | | | | | [facility] [address] | | | | + + + + + + | IgG Index | 0.46Comment: Testing | 0.28 - 0.66 | EXTERNAL | | | | performed at [facility], [address] | ratio | LAB | | | | [facility] | | | | | | [facility] [address] | | | | + + + + + + | CSF | NEGATIVEComment: | | EXTERNAL | | | Oligoclonal | REFERENCE RANGE: | | LAB | | | Bands | NEGATIVETesting | | | | | | performed at [facility], [address] | | | | | | [facility], [facility] | | | | | | [facility] [address] | | | | + + + [...] 500 | | | | | | [facility] | | | | | | [facility] [address] | | | | + + + + + + | IGG SYNTH | <0.0 (L)Comment: | 0.0 - 8.0 mg/d | EXTERNAL | | | RATE | REFERENCE RANGE: | | LAB | | | | <=8.0Testing performed | | | | | | at [facility], [address] | | | | | | [facility], [place] | | | | | | [address] | | | | + + + + + + | Albumin | 2,730 (L)Comment: | 3,500 - 5,200 | EXTERNAL | | | | Testing performed at | mg/dL | LAB | | | | [facility], [address] [facility], | | | | | | [place] [address] | | | | + + + [...] | Testing performed | | | at [facility], [address] [place] [address] | | + + + + +---------+ [...] GROWTH | | | Testing performed at [facility], | | | [address] [place] [address] | | + + + + +---------+ [...] | | | | | [place] [address] | | | | + + + + + + | Clarity, | CLEARComment: Testing | | EXTERNAL | | | Urine | performed at [facility], [address] | | LAB | | | | [address], | | | | | | [place] [address] | | | | + + + + + + | Specific | 1.014Comment: Testing | 1.002 - 1.030 | EXTERNAL | | | [place], | performed at [facility], [address] | | LAB | | | Urine | [address], | | | | | | [place] [address] | | | | + + + + + + | Leukocyte | TRACE (A)Comment: | | EXTERNAL | | | Esterase, | Testing performed at | | LAB | | | Urine | [facility], [address] | | | | | | [place] | | | | | | [address] | | | | + + + + + + | Nitrite, | NEGATIVEComment: Testing | | EXTERNAL | | | Urine | performed at [facility], [address] | | LAB | | | | [address] [place], | | | | | | [place] [address] | | | | + + + + + + | Urobilinoge | 0.2Comment: Testing | mg/dL | EXTERNAL | | | n, Urine | performed at [facility], [address] | | LAB | | | | [address] [place], | | | | | | [place] [address] | | | | + + + + + + | Protein, | NEGATIVEComment: Testing | mg/dL | EXTERNAL | | | Urine | performed at [facility], [address] | | LAB | | | | [address], | | | | | | [place] [address] | | | | + + + + + + | pH, Urine | 7.0Comment: Testing | 5.0 - 8.0 | EXTERNAL | | | | performed at [facility], [address] | | LAB | | | | [address], | | | | | | [place] [address] | | | | + + + + + + | Blood, | SMALL (A)Comment: | | EXTERNAL | | | Urine | Testing performed at | | LAB | | | | [facility], [address] [facility] | | | | | | [place] | | | | | | [address] | | | | + + + + + + | Ketones | NEGATIVEComment: Testing | mg/dL | EXTERNAL | | | | performed at [facility], [address] | | LAB | | | | [address], | | | | | | [place] [address] | | | | + + + + + + | Bilirubin, | NEGATIVEComment: Testing | | EXTERNAL | | | Urine | performed at [facility], [address] | | LAB | | | | [address], | | | | | | [place] [address] | | | | + + + + + + | Glucose, | NEGATIVEComment: Testing | mg/dL | EXTERNAL | | | Urine | performed at [facility], [address] | | LAB | | | | [address], | | | | | | [place] [address] | | | | + + + + + + | WBC, UA | 16-25Comment: Testing | 0 - 5 /hpf | EXTERNAL | | | | performed at [facility], [address] | | LAB | | | | [address], | | | | | | [place] [address] | | | | + + + + + + | RBC, UA | 6-10Comment: Testing | 0 - 5 /hpf | EXTERNAL | | | | performed at [facility], [address] | | LAB | | | | [address], | | | | | | [place] [address] | | | | + + + + + + | Bacteria, | NONE SEENComment: | | EXTERNAL | | | UA | CULTURE TO FOLLOWTesting | | LAB | | | | performed at [facility], [address] | | | | | | [address], | | | | | | [place] [address] | | | | + + + + + + | Epithelial | 26-50Comment: Testing | /lpf | EXTERNAL | | | Cells | performed at [facility], [address] | | LAB | | | | [address], | | | | | | [place] [address] | | | | + + + + + + | HYALINE | 0-2Comment: Testing | | EXTERNAL | | | CASTS UA | performed at [facility], [address] | | LAB | | | | [address], | | | | | | [place] [address] | | | | + + + [...] SPECIAL | EXTERNAL LAB | | [facility] | | | Testing performed at [facility];[address];[place] [address] CULTURE | | | NO GROWTH | | | Testing performed at [facility], [address] [place], [place] | | | [address] | | + + + + +---------+ [...] LAC | | | Testing performed at [facility];[address] | | | [facility];[place] [address] CULTURE | | | NO GROWTH | | | Testing performed at [facility], [address] [facility], [place], [place] | | | [address] | | + + + + +---------+ [...] | | | | | performed at [facility];[address] | | | | | | [address] [facility];[place], [place] | | | | | | [address] | | | | + + + [...] | | | | [facility], [address] [facility] | | | | | | [place] | | | | | | [address] | | | | + + + + + + | Non- | 4.38Comment: Testing | 3.70 - 5.10 | EXTERNAL | | | Red Blood | performed at [facility], [address] | M/uL | LAB | | | Cells | [address], | | | | | Counted | [place] [address] | | | | + + + + + + | Hemoglobin | 13.1Comment: Testing | 11.3 - 15.5 | EXTERNAL | | | | performed at [facility], [address] | g/dL | LAB | | | | [address], | | | | | | [place] [address] | | | | + + + + + + | Hematocrit, | 41.2Comment: Testing | 34.0 - 46.0 % | EXTERNAL | | | POC | performed at [facility], [address] | | LAB | | | | [place] [place], | | | | | | [place] [address] | | | | + + + + + + | MCV | 94.0Comment: Testing | 80.0 - 100.0 fl | EXTERNAL | | | | performed at [facility], [address] | | LAB | | | | [place], | | | | | | [place] [address] | | | | + + + + + + | MCH | 29.9Comment: Testing | 27.0 - 34.0 pg | EXTERNAL | | | | performed at [facility], [address] | | LAB | | | [address], | | | | | | [place] [address] | | | | + + + + + + | MCHC | 31.8 (L)Comment: Testing | 32.0 - 35.5 | EXTERNAL | | | | performed at [facility], [address] | g/dL | LAB | | | | [address], | | | | | | [place] [address] | | | | + + + + + + | RDW-CV | 59.5 (H)Comment: Testing | 37 - 53 fl | EXTERNAL | | | | performed at [facility], [address] | | LAB | | | | [address], | | | | | | [place] [address] | | | | + + + + + + | Platelet | 436 (H)Comment: Testing | 150 - 400 K/uL | EXTERNAL | | | Count | performed at [facility], [address] | | LAB | | | Plasma | [address], | | | | | | [place] [address] | | | | + + + + + + | MPV | 8.2Comment: Testing | fl | EXTERNAL | | | | performed at [facility], [address] | | LAB | | | | [address], | | | | | | [place], [place] [address] | | | | + + + + + + | Differentia | MANUALComment: Testing | | EXTERNAL | | | l Type | performed at [facility], [address] | | LAB | | | | [address], | | | | | | [place], [place] [address] | | | | + + + + + + | Segmented | 69Comment: Testing | % | EXTERNAL | | | Neutrophils | performed at [facility], [address] | | LAB | | | Manual | [address], | | | | | | [place], [place] [address] | | | | + + + + + + | Lymphocytes | 17Comment: Testing | % | EXTERNAL | | | Manual | performed at [facility], [address] | | LAB | | | | [address], | | | | | | [place] [address] | | | | + + + + + + | Monocytes | 14Comment: Testing | % | EXTERNAL | | | Manual | performed at [facility], [address] | | LAB | | | | [place], | | | | | | [place] [address] | | | | + + + + + + | Absolute | 17.00 (H)Comment: | 1.90 - 7.40 | EXTERNAL | | | Neutrophils | Testing performed at | K/uL | LAB | | | | [facility], [address] [facility] | | | | | | [place] | | | | | | [address] | | | | + + + + + + | Absolute | 4.19 (H)Comment: Testing | 1.00 - 3.90 | EXTERNAL | | | Lymphocytes | performed at [facility], [address] | K/uL | LAB | | | | [address] [place], | | | | | | [place] [address] | | | | + + + + + + | Absolute | 3.45 (H)Comment: Testing | 0.00 - 0.80 | EXTERNAL | | | Monocytes | performed at [facility], [address] | K/uL | LAB | | | | [address], | | | | | | [place] [address] | | | | + + + + + + | RBC | 2+Comment: ANISONORMAL | | EXTERNAL | | | Morphology | PLT MORPHTesting | | LAB | | | | performed at [facility], [address] | | | | [address], | | | | | | [place] [address] | | | | | | | [...] EXTERNAL | | | | performed at [facility], [address] | | LAB | | | | [place], | | | | | | [place] [address] | | | | + + + [...] EXTERNAL | | | | performed at [facility], [address] | | LAB | | | | [address], | | | | | | [place] [address] | | | | + + + [...] | | | | | [place] [address] | | | | + + + + + + | K | 3.5Comment: Testing | 3.5 - 4.9 | EXTERNAL | | | | performed at [facility], [address] | mmol/L | LAB | | | | [address], | | | | | | [place] [address] | | | | + + + + + + | Cl | 95 (L)Comment: Testing | 99 - 109 mmol/L | EXTERNAL | | | | performed at [facility], [address] | | LAB | | | | [address], | | | | | | [place] [address] | | | | + + + + + + | CO2 | 25Comment: Testing | 23 - 32 mmol/L | EXTERNAL | | | | performed at [facility], [address] | | LAB | | | | [address], | | | | | | [place] [address] | | | | + + + + + + | Anion Gap | 12Comment: Testing | 5 - 20 mmol/L | EXTERNAL | | | | performed at [facility], [address] | | LAB | | | | [address], | | | | | | [place] [address] | | | | + + + + + + | Glucose, | 120 (H)Comment: Testing | 65 - 99 mg/dL | EXTERNAL | | | Fasting | performed at [facility], [address] | | LAB | | | | [address], | | | | | | [place] [address] | | | | + + + + + + | BUN | 8Comment: Testing | 8 - 25 mg/dL | EXTERNAL | | | | performed at [facility], [address] | | LAB | | | | [place], | | | | | | [place] [address] | | | | + + + + + + | Creatinine | 0.45 (L)Comment: Testing | 0.50 - 1.00 | EXTERNAL | | | | performed at [facility], [address] | mg/dL | LAB | | | | [address], | | | | | | [place] [address] | | | | + + + + + + | BUN/Creatin | 18Comment: Testing | | EXTERNAL | | | ine Ratio | performed at [facility], [address] | | LAB | | | | [address], | | | | | | [place] [address] | | | | + + + + + + | Calcium | 8.7Comment: Testing | 8.5 - 10.5 | EXTERNAL | | | | performed at [facility], [address] | mg/dL | LAB | | | | [address], | | | | | | [place] [address] | | | | + + + + + + | Protein, | 6.8Comment: Testing | 6.3 - 8.2 g/dL | EXTERNAL | | | Total | performed at [facility], [address] | | LAB | | | | [address], | | | | | | [place] [address] | | | | + + + + + + | Albumin | 3.1 (L)Comment: Testing | 3.6 - 5.0 g/dL | EXTERNAL | | | | performed at [facility], [address] | | LAB | | | | [address], | | | | | | [place] [address] | | | | + + + + + + | Globulin | 3.7Comment: Testing | 1.3 - 4.9 g/dL | EXTERNAL | | | | performed at [facility], [address] | | LAB | | | | [address], | | | | | | [place] [address] | | | | + + + + + + | A/G Ratio | 0.8 (L)Comment: Testing | 1.0 - 2.4 | EXTERNAL | | | | performed at [facility], [address] | | LAB | | | | [address], | | | | | | [place] [address] | | | | + + + + + + | Bilirubin | 0.8Comment: Testing | 0.1 - 1.5 mg/dL | EXTERNAL | | | Total | performed at [facility], [address] | | LAB | | | | [address], | | | | | | [place] [address] | | | | + + + + + + | ALP, | 214 (H)Comment: Testing | 35 - 115 U/L | EXTERNAL | | | External | performed at [facility], [address] | | LAB | | | | [address], | | | | | | [place] [address] | | | | + + + + + + | AST | 26Comment: Testing | 10 - 45 U/L | EXTERNAL | | | | performed at [facility], [address] | | LAB | | | | [address], | | | | | | [place] [address] | | | | + + + + + + | ALT | 29Comment: Testing | 10 - 65 U/L | EXTERNAL | | | | performed at [facility], [address] | | LAB | | | | [address], | | | | | | [place] [address] | | | | + + + [...] | | | | | | at [facility], [address] | | | | | | [address], | | | | | | [place] [address] | | | | + + + [...] K/uL | LAB | | | | [facility];[address] | | | [address];[place] [address] | | | | + + + + + -+ | Non- | 4.36Comment: Testing | 3.70 - 5.10 | EXTERNAL | | | Red Blood | performed at [facility];[address] | M/uL | LAB | | | Cells | [address];[place] | | | | | Counted | [address] | | | | + + + + + -+ | Hemoglobin | 13.1Comment: Testing | 11.3 - 15.5 | EXTERNAL | | | | performed at [facility];[address] | g/dL | LAB | | | | [address];[place] | | | | | | [address] | | | | + + + + + -+ | Hematocrit, | 40.2Comment: Testing | 34.0 - 46.0 % | EXTERNAL | | | POC | performed at [facility];[address] | | LAB | | | | [address];[place] | | | | | | [address] | | | | + + + + + -+ | MCV | 92.3Comment: Testing | 80.0 - 100.0 fl | EXTERNAL | | | | performed at [facility];[address] | | LAB | | | | [address];[place] | | | | | | [address] | | | | + + + + + -+ | MCH | 30.2Comment: Testing | 27.0 - 34.0 pg | EXTERNAL | | | | performed at [facility];[address] | | LAB | | | | [address];[place] | | | | | | [address] | | | | + + + + + -+ | MCHC | 32.7Comment: Testing | 32.0 - 35.5 | EXTERNAL | | | | performed at [facility];[address] | g/dL | LAB | | | | [address];[place] | | | | | | [address] | | | | + + + + + -+ | RDW-CV | 59.5 (H)Comment: Testing | 37 - 53 fl | EXTERNAL | | | | performed at [facility];[address] | | LAB | | | | [address];[place] | | | | | | [address] | | | | + + + + + -+ | Platelet | 424 (H)Comment: Testing | 150 - 400 K/uL | EXTERNAL | | | Count | performed at [facility];[address] | | LAB | | | Plasma | [address];[place] | | | | | | [address] | | | | + + + + + -+ | MPV | 7.3Comment: Testing | fl | EXTERNAL | | | | performed at [facility];[address] | | LAB | | | | [address];[place] | | | | | | [address] | | | | + + + + + -+ | Differentia | AUTOMATEDComment: | | EXTERNAL | | | l Type | Testing performed at | | LAB | | | | [facility];[address];[place] [address] | | | | + + + + + -+ | % Segmented | 69.52Comment: Testing | % | EXTERNAL | | | | performed at [facility];[address] | | LAB | | | Neutrophils | [address];[place] | | | | | | [address] | | | | + + + + + -+ | % | 17.38Comment: Testing | % | EXTERNAL | | | Lymphocytes | performed at [facility];[address] | | LAB | | | | [address];[place] | | | | | | [address] | | | | + + + + + -+ | % Monocytes | 11.50Comment: Testing | % | EXTERNAL | | | | performed at [facility];[address] | | LAB | | | | [address];[place] | | | | | | [address] | | | | + + + + + -+ | % | 0.84Comment: Testing | % | EXTERNAL | | | Eosinophils | performed at [facility];[address] | | LAB | | | | [address];[place] | | | | | | [address] | | | | + + + + + -+ | % Basophils | 0.76Comment: Testing | % | EXTERNAL | | | | performed at [facility];[address] | | LAB | | | | [address];[place] | | | | | | [address] | | | | + + + + + -+ | Absolute | 17.37 (H)Comment: | 1.90 - 7.40 | EXTERNAL | | | Segmented | Testing performed at | K/uL | LAB | | | Neutrophils | [facility];[address] | | [address];[place] [address] | | | | + + + + + -+ | Absolute | 4.34 (H)Comment: Testing | 1.00 - 3.90 | EXTERNAL | | | Lymphocytes | performed at [facility];[address] | K/uL | LAB | | | | [address];[place] | | | | | | [address] | | | | + + + + + -+ | Absolute | 2.87 (H)Comment: Testing | 0.00 - 0.80 | EXTERNAL | | | Monocytes | performed at [facility];[address] | K/uL | LAB | | | | [address];[place] | | | | | | [address] | | | | + + + + + -+ | Absolute | 0.21Comment: Testing | 0.00 - 0.50 | EXTERNAL | | | Eosinophils | performed at [facility];[address] | K/uL | LAB | | | | [address];[place] | | | | | | [address] | | | | + + + + + -+ | Absolute | 0.19 (H)Comment: Testing | 0.00 - 0.10 | EXTERNAL | | | Basophils | performed at [facility];[address] | K/uL | LAB | | | | [address];[place] | | | | | | [address] | | | | + + + + + -+ | RBC | 1+Comment: ANISONORMAL | | EXTERNAL | | | Morphology | PLT MORPHTesting | | LAB | | | | performed at [facility];[address] | | | | | | [address];[place] | | | | | | [address] | | | | | | | | | | + + + + + -+ | Na | 133 (L)Comment: Testing | 135 - 143 | EXTERNAL | | | | performed at [facility];[address] | mmol/L | LAB | | | | [address];[place] | | | | | | [address] | | | | + + + + + -+ | K | 3.6Comment: Testing | 3.5 - 4.9 | EXTERNAL | | | | performed at [facility];[address] | mmol/L | LAB | | | | [address];[place] | | | | | | [address] | | | | + + + + + -+ | Cl | 95 (L)Comment: Testing | 99 - 109 mmol/L | EXTERNAL | | | | performed at [facility];[address] | | LAB | | | | [address];[place] | | | | | | [address] | | | | + + + + + -+ | CO2 | 28Comment: Testing | 23 - 32 mmol/L | EXTERNAL | | | | performed at [facility];[address] | | LAB | | | | [address];[place] | | | | | | [address] | | | | + + + + + -+ | Anion Gap | 13Comment: Testing | 5 - 20 mmol/L | EXTERNAL | | | | performed at [facility];[address] | | LAB | | | | [address];[place] | | | | | | [address] | | | | + + + + + -+ | Glucose, | 123 (H)Comment: Testing | 65 - 99 mg/dL | EXTERNAL | | | Fasting | performed at [facility];[address] | | LAB | | | | [address];[place] | | | | | | [address] | | | | + + + + + -+ | BUN | 7 (L)Comment: Testing | 8 - 25 mg/dL | EXTERNAL | | | | performed at [facility];[address] | | LAB | | | | [address];[place] | | | | | | [address] | | | | + + + + + -+ | Creatinine | 0.76Comment: Testing | 0.50 - 1.00 | EXTERNAL | | | | performed at [facility];[address] | mg/dL | LAB | | | | [address];[place] | | | | | | [address] | | | | + + + + + -+ | BUN/Creatin | 10Comment: Testing | | EXTERNAL | | | ine Ratio | performed at [facility];[address] | | LAB | | | | [address];[place] | | | | | | [address] | | | | + + + + + -+ | Calcium | 8.2 (L)Comment: Testing | 8.5 - 10.5 | EXTERNAL | | | | performed at [facility];[address] | mg/dL | LAB | | | | [address];[place] | | | | | | [address] | | | | + + + + + -+ | Protein, | 6.6Comment: Testing | 6.3 - 8.2 g/dL | EXTERNAL | | | Total | performed at [facility];[address] | | LAB | | | | [address];[place] | | | | | | [address] | | | | + + + + + -+ | Albumin | 2.7 (L)Comment: Testing | 3.6 - 5.0 g/dL | EXTERNAL | | | | performed at [facility];[address] | | LAB | | | | [address];[place] | | | | | | [address] | | | | + + + + + -+ | Globulin | 4.0Comment: Testing | 1.3 - 4.9 g/dL | EXTERNAL | | | | performed at [facility];[address] | | LAB | | | | [address];[place] | | | | | | [address] | | | | + + + + + -+ | A/G Ratio | 0.7 (L)Comment: Testing | 1.0 - 2.4 | EXTERNAL | | | | performed at [facility];[address] | | LAB | | | | [address];[place] | | | | | | [address] | | | | + + + + + -+ | Bilirubin | 0.7Comment: Testing | 0.1 - 1.5 mg/dL | EXTERNAL | | | Total | performed at [facility];[address] | | LAB | | | | [address];[place] | | | | | | [address] | | | | + + + + + -+ | ALP, | 251 (H)Comment: Testing | 35 - 115 U/L | EXTERNAL | | | External | performed at [facility];[address] | | LAB | | | | [address];[place] | | | | | | [address] | | | | + + + + + -+ | AST | 33Comment: Testing | 10 - 45 U/L | EXTERNAL | | | | performed at [facility];[address] | | LAB | | | | [address];[place] | | | | | | [address] | | | | + + + + + -+ | ALT | 36Comment: Testing | 10 - 65 U/L | EXTERNAL | | | | performed at [facility];[address] | | LAB | | | | [address];[place] | | | | | | [address] | | | | + + + [...] | | | | at [facility];[address] | | | | | | [address];[place] [address] | | | | + + + + + -+ | CK, Total | 50Comment: Testing | 30 - 240 U/L | EXTERNAL | | | | performed at [facility];[address] | | LAB | | | | [address];[place] | | | | | | [address] | | | | + + + [...] | | | | | performed at [facility];[address] | | | | | | [address];[place] | | | | | | [address] | | | | + + + + + -+ | aPTT, | 33 (H)Comment: Testing | 23 - 32 seconds | EXTERNAL | | | Patient | performed at [facility];[address] | | LAB | | | | [address];[place] | | | | | | [address] | | | | + + + + + -+ | CK-MB | 0.6Comment: Testing | 0.5 - 3.6 ng/mL | EXTERNAL | | | | performed at [facility];[address] | | LAB | | | | [address];[place], [place] | | | | | | [address] | | | | + + + [...]
--- OUTSIDE RECORDS SUMMARY | ~2019-11-05 | XMS | Encounter Summary ---
Demographics + + + | Address | [address] | | | [place] [address] | + + + | Home Phone [...] [place], [place] | | | | | [address] | | + + + + + | Cami Sawyer | ECON | Unknown | | + + + + + Care Team Providers + +------+ + | Care Services Executive Name | Role | Phone | [...] [address] | | | | | | [place], [place] | | | | | | [address] | | | +--------+ + + + [...]
--- OUTSIDE RECORDS SUMMARY | ~2019-11-05 | XMS | Encounter Summary ---
Demographics + + + | Address | [address] | | | [place] [address] | + + + | Home Phone | | + + + | Preferred Language | Unknown | + + + | Marital Status | | + + + | Islam Affiliation | Unknown | + + + | Race | Unknown | + + + | Ethnic Group | Unknown | + + + Author + + + | Author | [facility] | | | and [place] | + + + | Organization | [facility] | | | [...] Team Providers + +------+ + | Care Plasticator Name | Role | Phone | + [...] + + | 03/15/ | Telephone | [facility] | [place], | Appointment | | 2019 | | GENERAL SURGERY [address] | [address] | | | | | [address] | [address] | | | | | [place], [place] | [place] [address] | | | | | [address] | [phone] | | | | | [phone] | | | +--------+ + + + [...] Miscellaneous Notes Telephone Encounter - Dulce Marquez, Chain Offbearer - 03/15/2019 9:13 AM MIRYAM he attempted to contact this patient by phone with the following results: LVM stating I am ca lling to schedule appointment regarding ed[place]on. Left office phone number and encouraged abiodun jayesh to return my call. Electronically signed by Dulce Marquez Chain Offbearer at 08/2018 9:14 AM PSTdocumented in this [...]
--- OUTSIDE RECORDS SUMMARY | ~2019-11-05 | XMS | Encounter Summary ---
Demographics + + + | Address | [address] | | | [place] [address] | + + + | Home Phone | | + + + | Preferred Language | Unknown | + + + | Marital Status | | + + + | Orthodoxy Affiliation | NRP | + + + [...] [place], [place] | | | | | [address] | | + + + + + | Cami Sawyer | ECON | Unknown | | + + + + + Care Team Providers + +------+ + | Care Internal Controls Analyst Name | Role | Phone | [...] | | 2016 | | Center at [facility] [address] | [address] [facility] | [facility] | | | | [facility] | [facility] | | | | | [facility] and | [place] [address] | | | | | [place] [address] | [phone] | | | | | [place], [place] | | | | | | [address] | | | | | | [phone] | | | +--------+ + + + [...]
--- OUTSIDE RECORDS SUMMARY | ~2019-11-05 | XMS | Encounter Summary ---
Demographics + + + | Address | [address] | | | [place] [address] | + + + | Home Phone | | + + + | Preferred Language | Unknown | + + + | Marital Status | | + + + | Nondenominational Affiliation | NRP | + + + [...] [place], [place] | | | | | [address] | | + + + + + | Cami Sawyer | ECON | Unknown | | + + + + + Care Team Providers + +------+ + | Care Pad Extraction Tender Name | Role | Phone | [...] | | 2015 | | Center at [facility] [address] | [address] [facility] | | | | | [facility] | [facility], | | | | | [facility] and | [place] [address] | | | | | [place] [address] | [phone] | | | | | [place], [place] | | | | | | [address] | | | | | | [phone] | | | +--------+ + + + [...]
--- OUTSIDE RECORDS SUMMARY | ~2019-11-05 | XMS | Encounter Summary ---
Demographics + + + | Address | [address] | | | [place] [address] | + + + | Home Phone | | + + + | Preferred Language | Unknown | + + + | Marital Status | | + + + | Buddhist Affiliation | NRP | + + + | Race | White | + + + | Ethnic Group | Not or | + + + Author + + + | Author | [facility] | + + + | Organization | [facility] | + + + | Address | Unknown | + + + | Phone | Unavailable | + + + Support + + + + + | Name | Relationship | Address | Phone | + + + + + | Kole Willingham | [place] | [address] | | | | | [place], [place] | | | | | [address] | | + + + + + | Cami Sawyer | ECON | Unknown | | + + + + + Care Team Providers + +------+ + | Care Control Officer Manager Name | Role | Phone | [...] | | 2015 | | Center at [facility] [address] | [address] [facility] | | | | | [facility] | [facility], | | | | | [facility] and | [place] [address] | | | | | [place] [address] | [phone] | | | | | [place], [place] | | | | | | [address] | | | | | | [phone] | | | +--------+ + + + [...]
--- OUTSIDE RECORDS SUMMARY | ~2019-11-05 | XMS | Encounter Summary ---
Demographics + + + | Address | [address] | | | [place] [address] | + + + | Home Phone | | + + + | Preferred Language | Unknown | + + + | Marital Status | | + + + | Presybeterian Affiliation | Unknown | + + + | Race | Unknown | + + + | Ethnic Group | Unknown | + + + Author + + + | Author | [facility] | | | and [place] | + + + | Organization | [facility] | | | [...] Providers + +------+ + | Care Medical Director Occupational Health Name | Role | Phone | + [...] + + | 03/12/ | Telephone | [facility] | [place], | Follow-up | | 2019 | | GENERAL SURGERY [address] | [address] | | | | | [address] | [address] | | | | | [place], [place] | [place] [address] | | | | | [address] | [phone] | | | | | [phone] | | | +--------+ + + + [...] Details: returning call to speak to medical administrator also schedule an radha ointment. Patient states she is coming from [facility] in the morning would li ke schedule [...] home number. elephone Encounter - Dulce Sun, Tape Fastener Machine Operator - 03/13/2019 8:09 AM PSTI have attempted [...] transfer the call to a tamera cisneros garage door hanger was caller made aware that if at [...]
--- OUTSIDE RECORDS SUMMARY | ~2019-11-05 | XMS | Encounter Summary ---
Demographics + + + | Address | [address] | | | [place] [address] | + + + | Home Phone [...] Team Providers + +------+ + | Care Accounting Teacher Name | Role | Phone | [...] + + | 08/26/ | Telephone | [facility] | Davina Jackson, | Ostomy | | 2019 | | CENTER OUTPATIENT | RN | | | | | WOUND [facility] [address] | | | | | | [place] | | | | | | [address] | | | | | | [phone] | | | +--------+ + + + [...] [facility] received a call from Elian Chang ([facility] for ostomy supplies). He states they need a new order for ostomy suppli es in order to ship supplies. We have not seen this patient since 2018. I recommended he f ax paperwork to Dr. Bocanegra's office at [phone] for signature. Called Angelique at Dr. Hilario [...]
--- OUTSIDE RECORDS SUMMARY | ~2019-11-05 | XMS | Encounter Summary ---
Demographics + + + | Address | [address] | | | [place] [address] | + + + | Home Phone [...] + + | Author | [facility] | | | and [place] | + + + | Organization | [facility] | | [...] Team Providers + +------+ + | Care Head Charrer Name | Role | Phone | + [...] + + | 03/15/ | Telephone | [facility] | [place], | Appointment | | 2019 | | GENERAL SURGERY [address] | [address] | | | | | [address] | [address] | | | | | [place], [place] | [place] [address] | | | | | [address] | [phone] | | | | | [phone] | | | +--------+ + + + [...] Miscellaneous Notes Telephone Encounter - Dulce Marquez, First Line Supervisor - 03/15/2019 9:17 AM Wendy mcconnell returned my call. Patient states she in in town from [place] and would like to be seen ashley [...]
--- OUTSIDE RECORDS SUMMARY | ~2019-11-05 | XMS | Encounter Summary ---
Demographics + + + | Address | [address] | | | [place] [address] | + + + | Home Phone | | + + + | Preferred Language | Unknown | + + + | Marital Status | | + + + | Evangelical Affiliation | Unknown | + + + | Race | Unknown | + + + | Ethnic Group | Unknown | + + + Author + + + | Author | [facility] | | | and [place] | + + + | Organization | [facility] | | [...] Team Providers + +------+ + | Care Customer Marketing Manager Name | Role | Phone | [...] Provider Unknown | | | | | [place], [place] | [phone] | | | | | [address] | | | | | | [phone] | | | +--------+ + + + [...]
--- OUTSIDE RECORDS SUMMARY | ~2019-11-05 | XMS | Encounter Summary ---
Demographics + + + | Address | [address] | | | [place] [address] | + + + | Home Phone | | + + + | Preferred Language | Unknown | + + + | Marital Status | | + + + | Zoroastrianism Affiliation | Unknown | + + + | Race | Unknown | + + + | Ethnic Group | Unknown | + + + Author + + + | Author | [facility] | | | and [place] | + + + | Organization | [facility] | | | [...] Team Providers + +------+ + | Care Cardiology Physician Assistant Name | Role | Phone | + +------+ + PCP | Unavailable | + +------+ + Encounter Details +--------+ + + + + | Date | Type | Department | Care Team | Description | +--------+ + + + + | 08/04/ | Hospital | [facility] | Chace Benson | Crohn's disease of | | 2016 - | Encounter | [facility] | MD Alex Steve | large intestine with | | | | CARE FLOOR [address] [place], [place] | complication (HCC) | | 08/07/ | | [address] | [address] | | | 2015 | | [place], [place] | | | | | | [address] | | | | | | [phone] | | | +--------+ + + + [...] Summaries by Deanne Henson MD at 08/08/15 1439 Author: Deanne Henson MD Service: Internal Medicine Author Type: Physician Filed: 08/08/15 1441 Date of Service: 08/08/151434 Status: Signed Kiln Cleaner: Deanne Henson MD (Physician) [facility] Service: Hospitalist Physician Discharge Summary Patient [...] She presented to linda ency department at [facility] today with complaints of diarrhea, vomiting, [...] she came to the emergency department of [facility], where she was found to have INR of 12.9. NG tube was passed and return was blood-t inged. She was given 2 units of fresh frozen plasma and 10 mg of vitamin K, and patient was transferred to this hospital as there is no GI backup at [facility]. Hospital Course: The pt admitted for vomiting blood with inr > 12. She took extra coumadin pills. She got ffp, vit K, and tx to [facility]. Iv fluds, iv ppi gtt started. git [...] x [address] [facility] . But [...] Procedure: SPLENECTOMY; Surgeon: Bogdan Moser DO; Location: [facility] MAIN OR; Service: General; Laterality: N/A; Esophagogastroduodenoscopy Left 08/06/2015 Procedure: ESOPHAGOGASTRODUODENOSCOPY; Surgeon: Sheng Alvarado MD; Location: [facility] ENDOSCOPY; Service: Gastroenterology; Laterality: Left; [...] Disposition: Home or Self Care Follow up: [facility] [address] [facility] [place] [address] Please resume your coumadin therapy services within the next 3 days after discharge. 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 You may get the following medications from [...] 1415 Date of Service: 08/08/151412 Status: Signed Kiln Cleaner: Linh Perez RN (Registered Nurse) Met with pt regarding discharge planning. Pt states she is followed for her coumadin therap hy with [facility]. Pt states she will resume her coumadin servi krystyna with them upon d/c. No other needs at this time. Froylan Perez RN, CM. [phone] Deanne Galaviz MD - 08/07/2015 10:12 AM PDTFormatting of this note might be different from the or iginal. Progress Notes by Deanne Henson MD at 08/07/15 1012 Author: Deanne Henson MD Service: Internal Medicine Author Type: Physician Filed: 08/07/15 1017 Date of Service: 08/07/151011 Status: Signed Kiln Cleaner: Deanne Henson MD (Physician) [facility] Service: Hospitalist Progress Note Hospital Day: [...] She presented to linda rgency department at [facility] today with complaints of diarrhea, vomiting, [...] she came to the emergency department of [facility], where she was found to have INR of 12.9. NG tube was passed and return was blood-t inged. She was given 2 units of fresh frozen plasma and 10 mg of vitamin K, and patient was transferred to this hospital as there is no GI backup at [facility]. Scheduled Medications baclofen 10 mg Oral [...] prefers vanco.. [facility], colon. Get records. Her u/a noted. Bactrim po. The plan has explained in detail to the patient , all questions were answered.All data was reviewed. Disposition: home Code Status: Full Code Deanne Henson MD 08/07/2015 10:12 AM onversion Transactio n, Provider Unknown - 08/06/2015 9:25 PM PDT Nurse Progress Note by Celsa Del Castillo RN at 08/06/15 8089 Author: Celsa Del Castillo RN Service: (none) Author Type: Registered Nurse Filed: 08/07/15 0644 Date of Service: 08/06/152124 Status: Addendum Kiln Cleaner: Celsa Del Castillo RN (Registered Nurse) Related [...] Author: LEVI Gallardo Service: (none) Author Type: Soil Checker Filed: 08/06/15 1624 Date of Service: 08/06/151621 Status: Signed Kiln Cleaner: LEVI Gallardo (Soil Checker) 08/06/15 1600 Discharge Planning Evaluation Admitting Diagnosis Upper GI Bleed Readmission No Living Arrangements Spouse/significant other Support Systems Spouse/significant other Independent with ADL's Yes Independent with Mobility Yes Mental Status Oriented Anticipated Discharge Plan Post Acute Care Needs None at this time Resources Financial concerns No Transportation issues No Patient/Family concerns No Prescription Plan Yes Anticipated Disposition Facility Type Home TECHNICAL SERVICES REPRESENTATIVE met with Pt and discussed discharge planning, [...] needed: None Anticipated DCP: Home ERYN MALHOTRA, Director Product Development [phone] cell Deanne Galaviz MD - 08/06/2015 12:58 PM PDTFormatting of this note might be different from the or iginal. Progress Notes by Deanne Henson MD at 08/06/15 3585 Author: Deanne Henson MD Service: Internal Medicine Author Type: Physician Filed: 08/06/15 5859 Date of Service: 08/06/151257 Status: Addendum Kiln Cleaner: Deanne Henson MD (Physician) Related Notes: Original Note by Deanne Henson MD (Physician) filed at 08/06/[address] [facility] Service: Hospitalist Progress Note Hospital Day: [...] She presented to linda rgency department at [facility] today with complaints of diarrhea, vomiting, [...] she came to the emergency department of [facility], where she was found to have INR of 12.9. NG tube was passed and return was blood-t inged. She was given 2 units of fresh frozen plasma and 10 mg of vitamin K, and patient was transferred to this hospital as there is no GI backup at [facility]. Scheduled Medications hydrocortisone sodium succinate PF [...] recurrent uti's. [facility], colon. Get [...] 08/06/1545 Date of Service: 08/06/1545 Status: Signed Kiln Cleaner: Hamilton Drummond RPH (Pharmacist) Note ccl 45.9ml/min [...] 0854 Date of Service: 08/05/152032 Status: Addendum Kiln Cleaner: Chace Benson MD (Physician) Related Notes: Original Note by Chace Benson MD (Physician) filed at 08/05/[address] [facility] Service: Hospitalist Admission History & Physical Date of Admission: 08/05/2015 Requesting Physician: Transfer from [facility]. Reason for Admission: Hematemesis. Abdominal pain, [...] She presented to linda rgency department at [facility] today with complaints of diarrhea, vomiting, [...] she came to the emergency department of [facility], where she was found to have INR of 12.9. NG tube was passed and return was blood-t inged. She was given 2 units of fresh frozen plasma and 10 mg of vitamin K, and patient was transferred to this hospital as there is no GI backup at [facility]. REVIEW OF SYSTEMS Review of Systems Constitutional: [...] Procedure: SPLENECTOMY; Surgeon: Bogdan Moser DO; [facility] INR 1.9 11/10/2014 Blood workup done at [facility] emergency department this morning is as follows: [...] fresh frozen plasma and vitamin K at [facility]. I will repeat INR again. 5. [...] Consult* by Sheng Alvarado MD at 08/06/15 4331 Author: Sheng Alvarado MD Service: (none) Author Type: Physician Filed: 08/06/15 9787 Date of Service: 08/06/15 0184 Status: Signed Kiln Cleaner: Sheng Alvarado MD (Physician) [facility] Service: Gastroenterology Initial Consult Note Date [...] Coumadin. She presented to emergency department at [facility] today with complaints of watery diarrhea ( [...] came to the emergency d epartment of [facility], where she was found to have INR of 12.9. NG tube was pass ed and return was blood-tinged. She was given 2 units of fresh frozen plasma and 10 mg of vi tamin K, and patient was transferred to this hospital as there is no GI backup at [facility]. Repeat INR after admission was 1.2. She was seen at [facility] and the plan is to [...] Procedure: SPLENECTOMY; Surgeon: Bogdan Moser DO; [facility] However I will leave the plan of termite treater treatment for her Crohn's disease to her [...] Note by Sheng Alvarado MD at 08/06/15 5182 Author: Sheng Alvarado MD Service: (none) Author Type: Physician Filed: 08/06/15 1636 Date of Service: 08/06/15 1631 Status: Signed Kiln Cleaner: Sheng Alvarado MD (Physician) [facility] Service: Gastroenterology ENDOSCOPY SUITE PROCEDURE NOTE [...] | | | | performed at [facility];[address] | | | | | | [address] [facility];[place], [place] | | | | | | [address] | | | | + + + [...] L | LAB | | | | [facility], [address] [facility] | | | | | | [place] | | | | | | [address] | | | | + + +---- + + + | Non- | 3.36 (L)Comment: Testing | 3.7 0 - 5.10 | EXTERNAL | | | Red Blood | performed at [facility], [address] | M/u L | LAB | | | Cells | [address] [place], | | | | | Counted | [place] [address] | | | | + + +---- + + + | Hemoglobin | 7.8 (L)Comment: Testing | 11. 3 - 15.5 | EXTERNAL | | | | performed at [facility], [address] | g/d L | LAB | | | | [address] [place], | | | | | | [place] [address] | | | | + + +---- + + + | Hematocrit, | 26.6 (L)Comment: Testing | 34. 0 - 46.0 % | EXTERNAL | | | POC | performed at [facility], [address] | | LAB | | | | [address] [place], | | | | | | [place] [address] | | | | + + +---- + + + | MCV | 79.1 (L)Comment: Testing | 80. 0 - 100.0 fl | EXTERNAL | | | | performed at [facility], [address] | | LAB | | | | [address] [place], | | | | | | [place] [address] | | | | + + +---- + + + | MCH | 23.2 (L)Comment: Testing | 27. 0 - 34.0 pg | EXTERNAL | | | | performed at [facility], [address] | | LAB | | | | [place] [place], | | | | | | [place] [address] | | | | + + +---- + + + | MCHC | 29.3 (L)Comment: Testing | 32. 0 - 35.5 | EXTERNAL | | | | performed at [facility], [address] | g/d L | LAB | | | | [place], | | | | | | [place] [address] | | | | + + +---- + + + | RDW-CV | 61.7 (H)Comment: Testing | 37 - 53 fl | EXTERNAL | | | | performed at [facility], [address] | | LAB | | | | [address], | | | | | | [place] [address] | | | | + + +---- + + + | Platelet | 418 (H)Comment: Testing | 150 - 400 K/uL | EXTERNAL | | | Count | performed at [facility], [address] | | LAB | | | Plasma | [place], | | | | | | [place] [address] | | | | + + +---- + + + | MPV | 8.3Comment: Testing | fl | EXTERNAL | | | | performed at [facility], [address] | | LAB | | | | [address], | | | | | | [place] [address] | | | | + + +---- + + + | Differentia | AUTOMATEDComment: | | EXTERNAL | | | l Type | Testing performed at | | LAB | | | | [facility], [address] | | | | | | [place] | | | | | | [address] | | | | + + +---- + + + | % Segmented | 59.50Comment: Testing | % | EXTERNAL | | | | performed at [facility], [address] | | LAB | | | Neutrophils | [place], | | | | | | [place] [address] | | | | + + +---- + + + | % | 29.26Comment: Testing | % | EXTERNAL | | | Lymphocytes | performed at [facility], [address] | | LAB | | | | [place], | | | | | | [place] [address] | | | | + + +---- + + + | % Monocytes | 9.64Comment: Testing | % | EXTERNAL | | | | performed at [facility], [address] | | LAB | | | [address], | | | | | | [place] [address] | | | | + + +---- + + + | % | 0.54Comment: Testing | % | EXTERNAL | | | Eosinophils | performed at [facility], [address] | | LAB | | | | [address], | | | | | | [place] [address] | | | | + + +---- + + + | % Basophils | 1.06Comment: Testing | % | EXTERNAL | | | | performed at [facility], [address] | | LAB | | | | [place], | | | | | | [place] [address] | | | | + + +---- + + + | Absolute | 9.61 (H)Comment: Testing | 1.9 0 - 7.40 | EXTERNAL | | | Segmented | performed at [facility], [address] | K/u L | LAB | | | Neutrophils | [address] [place], | | | | | | [place] [address] | | | | + + +---- + + + | Absolute | 4.73 (H)Comment: Testing | 1.0 0 - 3.90 | EXTERNAL | | | Lymphocytes | performed at [facility], [address] | K/u L | LAB | | | | [address] [place], | | | | | | [place] [address] | | | | + + +---- + + + | Absolute | 1.56 (H)Comment: Testing | 0.0 0 - 0.80 | EXTERNAL | | | Monocytes | performed at [facility], [address] | K/u L | LAB | | | | [address], | | | | | | [place] [address] | | | | + + +---- + + + | Absolute | 0.09Comment: Testing | 0.0 0 - 0.50 | EXTERNAL | | | Eosinophils | performed at [facility], [address] | K/u L | LAB | | | | [address], | | | | | | [place] [address] | | | | + + +---- + + + | Absolute | 0.17 (H)Comment: Testing | 0.0 0 - 0.10 | EXTERNAL | | | Basophils | performed at [facility], [address] | K/u L | LAB | | | | [address] [facility], | | | | | | [place] [address] | | | | + + +---- + + + | RBC | 2+Comment: | | EXTERNAL | | | Morphology | ANISO1+HYPO1+MICRO2+TARG | | LAB | | | | ETNORMAL PLT | | | | | | MORPHTesting performed | | | | | | at [facility], [address] | | | | | | [address] [place], | | | | | | [place] [address] | | | | | |2+ | | | | | |TARGET | | | | | |NORMAL PLT MORPH | | | | | |Testing performed at [facility], [address] [facility], [place] [address] | | | | | | | | | | + + +---- + + + | Differentia | SLIDE SCANNED, AGREES | | EXTERNAL | | | l Comments | WITH AUTOMATED | | LAB | | | | RESULTS.Comment: Testing | | | | | | performed at [facility], [address] | | | | | | [address] [place], | | | | | | [place] [address] | | | | + + +---- [...] [place] | | | | | | [address] | | | | + + +---- + + + | Non- | 3.47 (L)Comment: Testing | 3.7 0 - 5.10 | EXTERNAL | | | Red Blood | performed at [facility], [address] | M/u L | LAB | | | Cells | [address] [place], | | | | | Counted | [place] [address] | | | | + + +---- + + + | Hemoglobin | 8.2 (L)Comment: Testing | 11. 3 - 15.5 | EXTERNAL | | | | performed at [facility], [address] | g/d L | LAB | | | | [place], | | | | | | [place] [address] | | | | + + +---- + + + | Hematocrit, | 27.5 (L)Comment: Testing | 34. 0 - 46.0 % | EXTERNAL | | | POC | performed at [facility], [address] | | LAB | | | | [place], | | | | | | [place] [address] | | | | + + +---- + + + | MCV | 79.1 (L)Comment: Testing | 80. 0 - 100.0 fl | EXTERNAL | | | | performed at [facility], [address] | | LAB | | | | [address] [place], | | | | | | [place] [address] | | | | + + +---- + + + | MCH | 23.6 (L)Comment: Testing | 27. 0 - 34.0 pg | EXTERNAL | | | | performed at [facility], [address] | | LAB | | | | [address] [place], | | | | | | [place] [address] | | | | + + +---- + + + | MCHC | 29.8 (L)Comment: Testing | 32. 0 - 35.5 | EXTERNAL | | | | performed at [facility], [address] | g/d L | LAB | | | | [address] [place], | | | | | | [place] [address] | | | | + + +---- + + + | RDW-CV | 62.1 (H)Comment: Testing | 37 - 53 fl | EXTERNAL | | | | performed at [facility], [address] | | LAB | | | | [address] [place], | | | | | | [place] [address] | | | | + + +---- + + + | Platelet | 419 (H)Comment: Testing | 150 - 400 K/uL | EXTERNAL | | | Count | performed at [facility], [address] | | LAB | | | Plasma | [place], | | | | | | [place] [address] | | | | + + +---- + + + | MPV | 8.3Comment: Testing | fl | EXTERNAL | | | | performed at [facility], [address] | | LAB | | | | [place], | | | | | | [place] [address] | | | | + + +---- + + + | Differentia | AUTOMATEDComment: | | EXTERNAL | | | l Type | Testing performed at | | LAB | | | | [facility], [address] | | | | | | [place] | | | | | | [address] | | | | + + +---- + + + | % Segmented | 82.12Comment: Testing | % | EXTERNAL | | | | performed at [facility], [address] | | LAB | | | Neutrophils | [place], | | | | | | [place] [address] | | | | + + +---- + + + | % | 10.53Comment: Testing | % | EXTERNAL | | | Lymphocytes | performed at [facility], [address] | | LAB | | | | [place], | | | | | | [place] [address] | | | | + + +---- + + + | % Monocytes | 6.70Comment: Testing | % | EXTERNAL | | | | performed at [facility], [address] | | LAB | | | | [address], | | | | | | [place] [address] | | | | + + +---- + + + | % | 0.05Comment: Testing | % | EXTERNAL | | | Eosinophils | performed at [facility], [address] | | LAB | | | | [address], | | | | | | [place] [address] | | | | + + +---- + + + | % Basophils | 0.60Comment: Testing | % | EXTERNAL | | | | performed at [facility], [address] | | LAB | | | | [address], | | | | | | [place] [address] | | | | + + +---- + + + | Absolute | 15.31 (H)Comment: | 1.9 0 - 7.40 | EXTERNAL | | | Segmented | Testing performed at | K/u L | LAB | | | Neutrophils | [facility], [address] | | | | | | [place] | | | | | | [address] | | | | + + +---- + + + | Absolute | 1.96Comment: Testing | 1.0 0 - 3.90 | EXTERNAL | | | Lymphocytes | performed at [facility], [address] | K/u L | LAB | | | | [place], | | | | | | [place] [address] | | | | + + +---- + + + | Absolute | 1.25 (H)Comment: Testing | 0.0 0 - 0.80 | EXTERNAL | | | Monocytes | performed at [facility], [address] | K/u L | LAB | | | | [address] [place], | | | | | | [place] [address] | | | | + + +---- + + + | Absolute | 0.01Comment: Testing | 0.0 0 - 0.50 | EXTERNAL | | | Eosinophils | performed at [facility], [address] | K/u L | LAB | | | | [place], | | | | | | [place] [address] | | | | + + +---- + + + | Absolute | 0.11 (H)Comment: Testing | 0.0 0 - 0.10 | EXTERNAL | | | Basophils | performed at [facility], [address] | K/u L | LAB | | | | [address], | | | | | | [place] [address] | | | | + + +---- + + + | RBC | 2+Comment: | | EXTERNAL | | | Morphology | ANISO2+HYPO1+TARGET1+POI | | LAB | | | | KNORMAL PLT MORPHTesting | | | | | | performed at [facility], [address] | | | | | | [address] [facility], | | | | | | [place] [address] | | | | | |TARGET | | | | | |1+ | | | | | |POIK | | | | | |NORMAL PLT MORPH | | | | | |Testing performed at [facility], [facility] [place] [address] | | | | | | | [...] | | | | performed at [facility];[address] | mmol/L | LAB | | | | [address] [place], [place] | | | | | | [address] | | | | + + + [...] | | | | performed at [facility];[address] | | LAB | | | | [address];[place], [place] | | | | | | [address] | | | | + + + [...] | | | | performed at [facility] | | LAB | | | | [address] [place], [place] | | | | | | [address] | | | | + + + [...] | | | | performed at [facility];[address] | mmol/L | LAB | | | | [address] [place] | | | | | | [address] | | | | + + + [...] | | | | performed at [facility] | | LAB | | | | [address] [place], [place] | | | | | | [address] | | | | + + + [...] LAB | | Testing performed at [facility];[address] [place] [address];[place] [address] TOXIN A | | | NEGATIVE Testing performed | | | at [facility];[address] [place] [address];[place] [address] C DIFF INTERPRETATION | | | Positive [...] Testing | | | performed at [facility];[address] [facility];[place] [address] | | + + + + +---------+ [...] | | C.diffAbnormal Testing performed at [facility];[address] [place] [address];[place], [place] | | | [phone] NAP1 BI 027 NAP1 BI | | | PRESUMPTIVE NEGATIVE Detection of 027 NAP1 BI strains of C. difficile | | | is presumptive and for epidemiological purposes and not intended to | | | guide or monitor treatment for C. difficile infections. Testing | | | performed at [facility];[address] [place] [address];[place] [address] | | + + + + +---------+ [...] | | | | performed at [facility];[address] | g/dL | LAB | | | | [address];[place] | | | | | | [address] | | | | + + + + + + | Hematocrit, | 29.1 (L)Comment: Testing | 34.0 - 46.0 % | EXTERNAL | | | POC | performed at [facility];[address] | | LAB | | | | [...] | | | | performed at [facility];[address] | g/dL | LAB | | | | [address];[place] | | | | | | [address] | | | | + + + + + + | Hematocrit, | 28.9 (L)Comment: Testing | 34.0 - 46.0 % | EXTERNAL | | | POC | performed at [facility];[address] | | LAB | | | | [address];[place] | | | | | | [address] | | | | + + + [...] | | | | performed at [facility];[address] | mmol/L | LAB | | | | [address] [place];[place], [place] | | | | | | [address] | | | | + + + [...] | | | | performed at [facility] | | | | | | [address];[place], [place] | | | | | | [address] | | | | + + + [...] | | | | [facility], [address] | | | | | | [place] | | | | | | [address] | | | | + + +---- + + + | Non- | 3.89Comment: Testing | 3.7 0 - 5.10 | EXTERNAL | | | Red Blood | performed at [facility], [address] | M/u L | LAB | | | Cells | [place] [place], | | | | | Counted | [place] [address] | | | | + + +---- + + + | Hemoglobin | 9.1 (L)Comment: Testing | 11. 3 - 15.5 | EXTERNAL | | | | performed at [facility], [address] | g/d L | LAB | | | | [place], | | | | | | [place] [address] | | | | + + +---- + + + | Hematocrit, | 30.7 (L)Comment: Testing | 34. 0 - 46.0 % | EXTERNAL | | | POC | performed at [facility], [address] | | LAB | | | | [place] [place], | | | | | | [place] [address] | | | | + + +---- + + + | MCV | 78.9 (L)Comment: Testing | 80. 0 - 100.0 fl | EXTERNAL | | | | performed at [facility], [address] | | LAB | | | | [place], | | | | | | [place] [address] | | | | + + +---- + + + | MCH | 23.4 (L)Comment: Testing | 27. 0 - 34.0 pg | EXTERNAL | | | | performed at [facility], [address] | | LAB | | | | [address] [place], | | | | | | [place] [address] | | | | + + +---- + + + | MCHC | 29.7 (L)Comment: Testing | 32. 0 - 35.5 | EXTERNAL | | | | performed at [facility], [address] | g/d L | LAB | | | | [address] [place], | | | | | | [place] [address] | | | | + + +---- + + + | RDW-CV | 63.9 (H)Comment: Testing | 37 - 53 fl | EXTERNAL | | | | performed at [facility], [address] | | LAB | | | | [address] [place], | | | | | | [place] [id number] | | | | + + +---- + + + | Platelet | 436 (H)Comment: Testing | 150 - 400 K/uL | EXTERNAL | | | Count | performed at [facility], [address] | | LAB | | | Plasma | [address], | | | | | | [place] [address] | | | | + + +---- + + + | MPV | 8.1Comment: Testing | fl | EXTERNAL | | | | performed at [facility], [address] | | LAB | | | | [address], | | | | | | [place] [address] | | | | + + +---- + + + | Differentia | AUTOMATEDComment: | | EXTERNAL | | | l Type | Testing performed at | | LAB | | | | [facility], [address] | | | | | | [place] | | | | | | [address] | | | | + + +---- + + + | % Segmented | 78.91Comment: Testing | % | EXTERNAL | | | | performed at [facility], [address] | | LAB | | | Neutrophils | [place], | | | | | | [place] [address] | | | | + + +---- + + + | % | 15.10Comment: Testing | % | EXTERNAL | | | Lymphocytes | performed at [facility], [address] | | LAB | | | | [address], | | | | | | [place] [address] | | | | + + +---- + + + | % Monocytes | 5.31Comment: Testing | % | EXTERNAL | | | | performed at [facility], [address] | | LAB | | | | [place], | | | | | | [place] [address] | | | | + + +---- + + + | % | 0.03Comment: Testing | % | EXTERNAL | | | Eosinophils | performed at [facility], [address] | | LAB | | | | [place], | | | | | | [place] [address] | | | | + + +---- + + + | % Basophils | 0.65Comment: Testing | % | EXTERNAL | | | | performed at [facility], [address] | | LAB | | | | [place], | | | | | | [place] [address] | | | | + + +---- + + + | Absolute | 18.14 (H)Comment: | 1.9 0 - 7.40 | EXTERNAL | | | Segmented | Testing performed at | K/u L | LAB | | | Neutrophils | TC, [address] | | | | | | [place] | | | | | | [address] | | | | + + +---- + + + | Absolute | 3.47Comment: Testing | 1.0 0 - 3.90 | EXTERNAL | | | Lymphocytes | performed at [facility], [address] | K/u L | LAB | | | | [address], | | | | | | [place] [address] | | | | + + +---- + + + | Absolute | 1.22 (H)Comment: Testing | 0.0 0 - 0.80 | EXTERNAL | | | Monocytes | performed at [facility], [address] | [address] | LAB | | | | [address] [place], | | | | | | [place] [address] | | | | + + +---- + + + | Absolute | 0.01Comment: Testing | 0.0 0 - 0.50 | EXTERNAL | | | Eosinophils | performed at [facility], [address] | K/u L | LAB | | | | [place], | | | | | | [place] [address] | | | | + + +---- + + + | Absolute | 0.15 (H)Comment: Testing | 0.0 0 - 0.10 | EXTERNAL | | | Basophils | performed at [facility], [facility] | K/u L | LAB | | | | [address] [facility], | | | | | | [place] [address] | | | | + + +---- + + + | RBC | 2+Comment: | | EXTERNAL | | | Morphology | ANISO1+POLY2+HYPO1+MICRO | | LAB | | | | 1+TARGETNORMAL PLT | | | | | | MORPHTesting performed | | | | | | at [facility], [facility] W | | | | | | [facility], | | | | | | [place] [address] | | | | | |1+ | | | | | |MICRO | | | | | |1+ | | | | | |TARGET | | | | | |NORMAL PLT MORPH | | | | | |Testing performed at [facility], [facility] [place] [address] | | | | | | | [...] EXTERNAL | | | | performed at [facility], [address] | | LAB | | | | [place], | | | | | | [place] [address] | | | | + + + [...] EXTERNAL | | | | performed at [facility], [address] | | LAB | | | | [place], | | | | | | [place] [address] | | | | + + + [...] EXTERNAL | | | | performed at [facility], [address] | mmol/L | LAB | | | | [place], | | | | | | [place] [address] | | | | + + + + + + | K | 3.5Comment: Testing | 3.5 - 4.9 | EXTERNAL | | | | performed at [facility], [address] | mmol/L | LAB | | | | [address], | | | | | | [place] [address] | | | | + + + + + + | Cl | 105Comment: Testing | 99 - 109 mmol/L | EXTERNAL | | | | performed at [facility], [address] | | LAB | | | | [address], | | | | | | [place] [address] | | | | + + + + + + | CO2 | 22 (L)Comment: Testing | 23 - 32 mmol/L | EXTERNAL | | | | performed at [facility], [address] | | LAB | | | | [address], | | | | | | [place] [address] | | | | + + + + + + | Anion Gap | 14Comment: Testing | 5 - 20 mmol/L | EXTERNAL | | | | performed at [facility], [address] | | LAB | | | | [address], | | | | | | [place] [address] | | | | + + + + + + | Glucose, | 92Comment: Testing | 65 - 99 mg/dL | EXTERNAL | | | Fasting | performed at [facility], [address] | | LAB | | | | [address], | | | | | | [place] [address] | | | | + + + + + + | BUN | 36 (H)Comment: Testing | 8 - 25 mg/dL | EXTERNAL | | | | performed at [facility], [address] | | LAB | | | | [address], | | | | | | [place] [address] | | | | + + + + + + | Creatinine | 1.07 (H)Comment: Testing | 0.50 - 1.00 | EXTERNAL | | | | performed at [facility], [address] | mg/dL | LAB | | | | [address], | | | | | | [place] [address] | | | | + + + + + + | BUN/Creatin | 34Comment: Testing | | EXTERNAL | | | ine Ratio | performed at [facility], [address] | | LAB | | | | [place], | | | | | | [place] [address] | | | | + + + + + + | Calcium | 7.0 (L)Comment: Testing | 8.5 - 10.5 | EXTERNAL | | | | performed at [facility], [address] | mg/dL | LAB | | | | [address], | | | | | | [place] [address] | | | | + + + + + + | Protein, | 5.9 (L)Comment: Testing | 6.3 - 8.2 g/dL | EXTERNAL | | | Total | performed at [facility], [address] | | LAB | | | | [address], | | | | | | [place] [address] | | | | + + + + + + | Albumin | 2.9 (L)Comment: Testing | 3.6 - 5.0 g/dL | EXTERNAL | | | | performed at [facility], [address] | | LAB | | | | [address], | | | | | | [place] [address] | | | | + + + + + + | Globulin | 3.0Comment: Testing | 1.3 - 4.9 g/dL | EXTERNAL | | | | performed at [facility], [address] | | LAB | | | | [address], | | | | | | [place] [address] | | | | + + + + + + | A/G Ratio | 1.0Comment: Testing | 1.0 - 2.4 | EXTERNAL | | | | performed at [facility], [address] | | LAB | | | [address], | | | | | | [place] [address] | | | | + + + + + + | Bilirubin | 0.8Comment: Testing | 0.1 - 1.5 mg/dL | EXTERNAL | | | Total | performed at [facility], [address] | | LAB | | | | [address], | | | | | | [place], [place] [address] | | | | + + + + + + | ALP, | 148 (H)Comment: Testing | 35 - 115 U/L | EXTERNAL | | | External | performed at [facility], [address] | | LAB | | | | [address], | | | | | | [place], [place] [address] | | | | + + + + + + | AST | 34Comment: Testing | 10 - 45 U/L | EXTERNAL | | | | performed at [facility], [address] | | LAB | | | | [address], | | | | | | [place] [address] | | | | + + + + + + | ALT | 39Comment: Testing | 10 - 65 U/L | EXTERNAL | | | | performed at [facility], [address] | | LAB | | | | [address], | | | | | | [place] [address] | | | | + + + [...] | | | | | | at [facility], [address] | | | | | | [place], | | | | | | [place] [address] | | | | + + + [...] | | | | performed at [facility];[address] | g/dL | LAB | | | | [address];[place], [place] | | | | | | [address] | | | | + + + + + + | Hematocrit, | 32.0 (L)Comment: Testing | 34.0 - 46.0 % | EXTERNAL | | | POC | performed at [facility];[address] | | LAB | | | | [address];[place], [place] | | | | | | [address] | | | | + + + [...] | | | | | [place] [address] | | | | + + + + + + | RBC, UA | 1-5Comment: Testing | 0 - 5 /hpf | EXTERNAL | | | | performed at [facility], [address] | | LAB | | | | [place] [place], | | | | | | [place] [address] | | | | + + + + + + | Epithelial | 1-5Comment: Testing | /lpf | EXTERNAL | | | Cells | performed at [facility], [address] | | LAB | | | | [place], | | | | | | [place] [address] | | | | + + + + + + | Bacteria, | NONE SEENComment: | | EXTERNAL | | | UA | Testing performed at | | LAB | | | | [facility], [address] | | | | | | [place] | | | | | | [address] | | | | + + + [...] | | | | | [place] [address] | | | | + + + + + + | Clarity, | TURBIDComment: Testing | | EXTERNAL | | | Urine | performed at [facility], [address] | | LAB | | | | [address], | | | | | | [place] [address] | | | | + + + + + + | Specific | 1.018Comment: Testing | 1.002 - 1.030 | EXTERNAL | | | [place], | performed at [facility], [address] | | LAB | | | Urine | [address], | | | | | | [place] [address] | | | | + + + + + + | Leukocyte | LARGE (A)Comment: | | EXTERNAL | | | Esterase, | Testing performed at | | LAB | | | Urine | [facility], [address] | | | | | | [place] | | | | | | [address] | | | | + + + + + + | Nitrite, | NEGATIVEComment: Testing | | EXTERNAL | | | Urine | performed at [facility], [address] | | LAB | | | | [address] [place], | | | | | | [place] [address] | | | | + + + + + + | Urobilinoge | 0.2Comment: Testing | mg/dL | EXTERNAL | | | n, Urine | performed at [facility], [address] | | LAB | | | | [place], | | | | | | [place] [address] | | | | + + + + + + | Protein, | 30 (A)Comment: Testing | mg/dL | EXTERNAL | | | Urine | performed at [facility], [address] | | LAB | | | | [address], | | | | | | [place] [address] | | | | + + + + + + | pH, Urine | 6.0Comment: Testing | 5.0 - 8.0 | EXTERNAL | | | | performed at [facility], [address] | | LAB | | | | [employer] [place], | | | | | | [place] [address] | | | | + + + + + + | Blood, | MODERATE (A)Comment: | | EXTERNAL | | | Urine | Testing performed at | | LAB | | | | [facility], [address] [facility] | | | | | | [place] | | | | | | [address] | | | | + + + + + + | Ketones | NEGATIVEComment: Testing | mg/dL | EXTERNAL | | | | performed at [facility], [address] | | LAB | | | | [address], | | | | | | [place] [address] | | | | + + + + + + | Bilirubin, | SMALL (A)Comment: | | EXTERNAL | | | Urine | Testing performed at | | LAB | | | | [facility], [address] | | | | | | [place] | | | | | | [address] | | | | + + + + + + | Glucose, | NEGATIVEComment: Testing | mg/dL | EXTERNAL | | | Urine | performed at [facility], [address] | | LAB | | | | [address] [facility] [place], | | | | | | [place] [address] | | | | + + + [...] | | EXTERNAL | | | | [facility];[address] | | LAB | | | | Blvd;[place] [address] | | | | + + + + + + | Antibody | NEGATIVE | | EXTERNAL | | | Screen | | | LAB | | + + + + + + | Antibody | Testing performed at | | EXTERNAL | | | Screen | [facility];[address] | | LAB | | | | [address];[place] [address] | | | | + + + + + + | BB BAND | [id number] | | EXTERNAL | | | | | | LAB | | + + + + + + | BB BAND | Testing performed at | | EXTERNAL | | | | [facility];[address] | | LAB | | | | Blvd;[place] [address] | | | | + + + [...] | | | | performed at [facility];[address] | | | | | | [address];[place], [place] | | | | | | [address] | | | | + + + [...] | | | | [facility], [address] [facility] | | | | | | [place] | | | | | | [address] | | | | + + +---- + + + | Non- | 4.26Comment: Testing | 3.7 0 - 5.10 | EXTERNAL | | | Red Blood | performed at [facility], [address] | M/u L | LAB | | | Cells | [address], | | | | | Counted | [place] [address] | | | | + + +---- + + + | Hemoglobin | 10.3 (L)Comment: Testing | 11. 3 - 15.5 | EXTERNAL | | | | performed at [facility], [address] | g/d L | LAB | | | | [place], | | | | | | [place] [address] | | | | + + +---- + + + | Hematocrit, | 33.2 (L)Comment: Testing | 34. 0 - 46.0 % | EXTERNAL | | | POC | performed at [facility], [address] | | LAB | | | | [place], | | | | | | [place] [address] | | | | + + +---- + + + | MCV | 77.9 (L)Comment: Testing | 80. 0 - 100.0 fl | EXTERNAL | | | | performed at [facility], [address] | | LAB | | | | [address] [place], | | | | | | [place] [address] | | | | + + +---- + + + | MCH | 24.1 (L)Comment: Testing | 27. 0 - 34.0 pg | EXTERNAL | | | | performed at [facility], [address] | | LAB | | | | [address] [place], | | | | | | [place] [address] | | | | + + +---- + + + | MCHC | 30.9 (L)Comment: Testing | 32. 0 - 35.5 | EXTERNAL | | | | performed at [facility], [address] | g/d L | LAB | | | | [address] [place], | | | | | | [place] [address] | | | | + + +---- + + + | RDW-CV | 61.3 (H)Comment: Testing | 37 - 53 fl | EXTERNAL | | | | performed at [facility], [address] | | LAB | | | | [address] [place], | | | | | | [place] [address] | | | | + + +---- + + + | Platelet | 445 (H)Comment: Testing | 150 - 400 K/uL | EXTERNAL | | | Count | performed at [facility], [address] | | LAB | | | Plasma | [place], | | | | | | [place] [address] | | | | + + +---- + + + | MPV | 8.6Comment: Testing | fl | EXTERNAL | | | | performed at [facility], [address] | | LAB | | | | [address], | | | | | | [place] [address] | | | | + + +---- + + + | Differentia | MANUALComment: Testing | | EXTERNAL | | | l Type | performed at [facility], [address] | | LAB | | | | [address], | | | | | | [place] [address] | | | | + + +---- + + + | Segmented | 77Comment: Testing | % | EXTERNAL | | | Neutrophils | performed at [facility], [address] | | LAB | | | Manual | [address], | | | | | | [place] [address] | | | | + + +---- + + + | Lymphocytes | 14Comment: Testing | % | EXTERNAL | | | Manual | performed at [facility], [address] | | LAB | | | | [place], | | | | | | [place] [address] | | | | + + +---- + + + | Monocytes | 9Comment: Testing | % | EXTERNAL | | | Manual | performed at [facility], [address] | | LAB | | | | [place], | | | | | | [place] [address] | | | | + + +---- + + + | Absolute | 22.20 (H)Comment: | 1.9 0 - 7.40 | EXTERNAL | | | Neutrophils | Testing performed at | K/u L | LAB | | | | [facility], [address] [facility] | | | | | | [place] | | | | | | [address] | | | | + + +---- + + + | Absolute | 4.04 (H)Comment: Testing | 1.0 0 - 3.90 | EXTERNAL | | | Lymphocytes | performed at [facility], [address] | K/[address] L | LAB | | | | [address] [place], | | | | | | [place] [address] | | | | + + +---- + + + | Absolute | 2.59 (H)Comment: Testing | 0.0 0 - 0.80 | EXTERNAL | | | Monocytes | performed at [facility], [address] | [address] | LAB | | | | [address], | | | | | | [place] [address] | | | | + + +---- + + + | RBC | 1+Comment: | | EXTERNAL | | | Morphology | ANISO1+POIK2+HYPO1+MICRO | | LAB | | | | 1+TARGETNORMAL PLT | | | | | | MORPHTesting performed | | | | | | at [facility], [address] | | | | | | [facility], | | | | | | [place] [address] | | | | | |1+ | | | | | |MICRO | | | | | |1+ | | | | | |TARGET | | | | | |NORMAL PLT MORPH | | | | | |Testing performed at [facility], [address] [facility], [place] [address] | | | | | | | [...] | | | | | [place] [address] | | | | + + + + + + | K | 2.9 (L)Comment: Testing | 3.5 - 4.9 | EXTERNAL | | | | performed at [facility], [address] | mmol/L | LAB | | | | [address], | | | | | | [place] [address] | | | | + + + + + + | Cl | 98 (L)Comment: Testing | 99 - 109 mmol/L | EXTERNAL | | | | performed at [facility], [address] | | LAB | | | | [address], | | | | | | [place] [address] | | | | + + + + + + | CO2 | 22 (L)Comment: Testing | 23 - 32 mmol/L | EXTERNAL | | | | performed at [facility], [address] | | LAB | | | | [address], | | | | | | [place] [address] | | | | + + + + + + | Anion Gap | 16Comment: Testing | 5 - 20 mmol/L | EXTERNAL | | | | performed at [facility], [address] | | LAB | | | [address], | | | | | | [place] [address] | | | | + + + + + + | Glucose, | 89Comment: Testing | 65 - 99 mg/dL | EXTERNAL | | | Fasting | performed at [facility], [address] | | LAB | | | | [address], | | | | | | [place] [address] | | | | + + + + + + | BUN | 39 (H)Comment: Testing | 8 - 25 mg/dL | EXTERNAL | | | | performed at [facility], [address] | | LAB | | | | [address], | | | | | | [place] [address] | | | | + + + + + + | Creatinine | 1.49 (H)Comment: Testing | 0.50 - 1.00 | EXTERNAL | | | | performed at [facility], [address] | mg/dL | LAB | | | | [address] [place], | | | | | | [place] [address] | | | | + + + + + + | BUN/Creatin | 26Comment: Testing | | EXTERNAL | | | ine Ratio | performed at [facility], [address] | | LAB | | | | [address], | | | | | | [place] [address] | | | | + + + + + + | Calcium | 7.5 (L)Comment: Testing | 8.5 - 10.5 | EXTERNAL | | | | performed at [facility], [address] | mg/dL | LAB | | | [address], | | | | | | [place] [address] | | | | + + + + + + | Protein, | 6.8Comment: Testing | 6.3 - 8.2 g/dL | EXTERNAL | | | Total | performed at [facility], [address] | | LAB | | | | [address], | | | | | | [place] [address] | | | | + + + + + + | Albumin | 3.4 (L)Comment: Testing | 3.6 - 5.0 g/dL | EXTERNAL | | | | performed at [facility], [address] | | LAB | | | | [place], | | | | | | [place] [address] | | | | + + + + + + | Globulin | 3.4Comment: Testing | 1.3 - 4.9 g/dL | EXTERNAL | | | | performed at [facility], [address] | | LAB | | | [address], | | | | | | [place] [address] | | | | + + + + + + | A/G Ratio | 1.0Comment: Testing | 1.0 - 2.4 | EXTERNAL | | | | performed at [facility], [address] | | LAB | | | | [address], | | | | | | [place] [address] | | | | + + + + + + | Bilirubin | 0.8Comment: Testing | 0.1 - 1.5 mg/dL | EXTERNAL | | | Total | performed at [facility], [address] | | LAB | | | | [address] [place], | | | | | | [place] [address] | | | | + + + + + + | ALP, | 183 (H)Comment: Testing | 35 - 115 U/L | EXTERNAL | | | External | performed at [facility], [address] | | LAB | | | | [address], | | | | | | [place] [address] | | | | + + + + + + | AST | 48 (H)Comment: Testing | 10 - 45 U/L | EXTERNAL | | | | performed at [facility], [address] | | LAB | | | | [address], | | | | | | [place] [address] | | | | + + + + + + | ALT | 56Comment: Testing | 10 - 65 U/L | EXTERNAL | | | | performed at [facility], [address] | | LAB | | | | [address] [facility], | | | | | | [place] [address] | | | | + + + [...] W | | | | | | [facility], | | | | | | [place] [address] | | | | + + + [...]
--- OUTSIDE RECORDS SUMMARY | ~2019-11-05 | XMS | Encounter Summary ---
Demographics + + + | Address | [address] | | | [place] [address] | + + + | Home Phone [...] Team Providers + +------+ + | Care Floorworker Name | Role | Phone | + +------+ + | No, Physician | PCP | Unavailable | + +------+ + Encounter Details +--------+ + + + + | Date | Type | Department | Care Team | Description | +--------+ + + + + | 04/12/ | Orders Only | [facility] | [place], | | | 2018 | | GENERAL SURGERY [address] | [address] | | | | | [address] | [address] | | | | | [place], [place] | [place] [address] | | | | | [address] | [phone] | | | | | [phone] | | | +--------+ + + + [...]
--- OUTSIDE RECORDS SUMMARY | ~2019-11-05 | XMS | Encounter Summary ---
Demographics + + + | Address | [address] | | | [place] [address] | + + + | Home Phone | | + + + | Preferred Language | Unknown | + + + | Marital Status | | + + + | Gnosticist Affiliation | Unknown | + + + | Race | Unknown | + + + | Ethnic Group | Unknown | + + + Author + + + | Author | [facility] | | | and [place] | + + + | Organization | [facility] | | | and [...] Providers + +------+ + | Care Service Station Operator Name | Role | Phone | + +------+ + PCP | Unavailable | + +------+ + Encounter Details +--------+ + + + + | Date | Type | Department | Care Team | Description | +--------+ + + + + | 03/01/ | [facility] | [facility] | Conversion | | | 2017 | Encounter | [facility] | Transaction, | | | | | [address] | Provider Unknown | | | | | [place], [place] | | | | | | [address] | (Fax) | | | | | [phone] | | | +--------+ + + + [...]
--- OUTSIDE RECORDS SUMMARY | ~2019-11-05 | XMS | Encounter Summary ---
Demographics + + + | Address | [address] | | | [place] [address] | + + + | Home Phone [...] [place], [place] | | | | | [address] | | + + + + + | Cami Sawyer | ECON | Unknown | | + + + + + Care Team Providers + +------+ + | Care Collar Turner Operator Name | Role | Phone | [...] | OPAL Howard Romeo Kristen | [address] [facility] | evacuation of | | | | [address] [facility] | [address] | hematoma, control of | | | | Hospital Admitting | [place], [place] | retroperitonieal | | | | Desk Located on the | [address] | hemorage, lysis of | | | | 9th floor | [phone] | adhesions, wound vac | | | | [place], [place] | | placement, and | | | | [address] | | abdominal wall | | | [...] might be different f rom the original. [facility] DEPARTMENT OF SURGERY EMERGENCY GENERAL SURGERY Division [...] continued to progress and is discharged to snf facility for [facility] care. Mackenzie Hartley is discharged [...] might be different f rom the original. [facility] DEPARTMENT OF SURGERY [...] anticoagulated with warfarin transferred to [facility] from [facility] for hanh gement of retroperitoneal bleed. [...] diet Discharge Plan: [place] [phone] pager number [facility] [phone] [facility] [phone] Jean-Claude Chaidez DM D, MD - 05/12/2014 7:[address] 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 from [facility] for management of retroperitoneal bleed. S [...] anticoagulated with warfarin transferred to [facility] from [facility] for management of retroperitoneal bleed. She [...] she wants to see the [facility] GI team - Stage I [...] since would be close to [facility] and she would benefit for [...] 03/12/2012 Jean-Claude Albrecht D.M.D., M.D. [facility] 10A [address] [facility] [place] [phone] This assessment and plan was formulated both [...] 05/11/2014 8:[address] 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 from [facility] for management of retroperitoneal bleed. S [...] anticoagulated with warfarin transferred to [facility] from [facility] for management of retroperitoneal bleed. She [...] she wants to see the [facility] GI team - Stage I [...] since would be close to [facility] and she would benefit for [...] 03/12/2012 Jean-Claude Albrecht D.M.D., M.D. [facility] [address]A [address] [place] [address] This assessment and plan was formulated both [...] being active. Pt's has been at the [facility] supporting her. Pt is not latter-day but appreciates support. Intervention: Provided a listening presence and explored pt's anxieties, worries and hopes. Plan: Spiritual care remains available. Yvette Jolly, [facility] / [facility] phone # [phone] pager # [phone] on-call # [phone] signed by Lulu Diaz at 05/10/2014 12:58 PM Andrew Horne Md - 05/10/2014 7:[address] 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 from [facility] for management of retroperitoneal bleed. S [...] anticoagulated with warfarin transferred to [facility] from [facility] for management of retroperitoneal bleed. She [...] she wants to see the [facility] GI team - Stage I [...] recommending JJ since would be close to [facility] and she would benefit for [...] complication 03/12/[address] [facility] [address]A [address] [facility] [place] [address] This assessment and plan was [...] this note might be different from the [facility]. 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 from [facility] for management of retroperitoneal bleed. S [...] anticoagulated with warfarin transferred to [facility] from [facility] for management of retroperitoneal bleed. She [...] she wants to see the [facility] GI team - Stage I [...] since would be close to [facility] and she would benefit for [...] complication 03/12/[address] [facility] [address]A [address] [facility] [place] [address] This assessment and plan was [...] note might be different 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 from [facility] for management of retroperitoneal bleed. S [...] No new Cultures BLOOD CULTURE [facility] (no units) Date Value Range [...] anticoagulated with warfarin transferred to [facility] from [facility] for management of retroperitoneal bleed. She [...] she wants to see the [facility] GI team - Stage I [...] since would be close to [facility] and she would benefit for [...] complication 03/12/[address] 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 from [facility] for management of retroperitoneal bleed. S [...] No new Cultures BLOOD CULTURE [facility] (no units) Date Value Range [...] anticoagulated with warfarin transferred to [facility] from [facility] for management of retroperitoneal bleed. She [...] complication 03/12/[address] 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 from [facility] for management of retroperitoneal bleed. S [...] No new Cultures BLOOD CULTURE [facility] (no units) Date Value Range [...] anticoagulated with warfarin transferred to [facility] from [facility] for management of retroperitoneal bleed. She [...] continued DHT,TF - Diet: NPO - per WEB ANALYTICS DEVELOPER, high risk of aspiration - continue [...] complication 03/12/[address] [facility] 10A [address] [place] [address] This assessment and plan was [...] note 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 from [facility] for management of retroperitoneal bleed. S [...] No new Cultures BLOOD CULTURE [facility] (no units) Date Value Range [...] anticoagulated with warfarin transferred to [facility] from [facility] for management of retroperitoneal bleed. She [...] complication 03/12/[address] [facility] 10A [address] [place] [phone] This assessment and plan was formulated both [...] s note. PHIL VARMA MD [facility] 10A [address] [facility] [place] [address] Rosa Sauer MD - 05/04/2014 8:26 AM [...] hospital. She was transferred to [facility] f or active hemorrhage and underwent IR [...] rounds. Rosa Reynoso, R2 SICU/Trauma Personal pager: [phone] Team pager: [phone] Angeles Acevedo MD - 05/04/2014 7:08 AM PST [facility] DEPARTMENT OF SURGERY EGS ICU Progress Note Division of Trauma and Critical Care ID: Mackenzie Hartley is a 58 year old female with COPD, Crohn's disease, chronic pain, and 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 while anticoagulated with warfarin transferre d to [facility] from [facility] for management of retroperitoneal bleed. She [...] anticoagulated with warfarin transferred to [facility] from [facility] for management of retroperitoneal bleed. She has required repeated transfers to ICU for respiratory status. She has been diuresed ap propriately while in the ICU and O2 needs have decreased significantly. Will transfer to [facility] or, but need to keep a [...] Hannah MD General Surgery Resident, R3 Pager [phone] [facility] [address] [place] [address] Jf Jones MD - 05/03/2014 9:38 AM [...] - TF at goal, + BM Dysphagia: WEB ANALYTICS DEVELOPER following- remains NPO Anasarca: compression socks,. [...] Call team 01/11 for questions: Team Pager [phone] ATTENDING ADDENDUM: I saw and examined Mackenzie [...] Erin Christensen PA-C. Jf Wiseman MD FACS hr manager Division of Trauma, Critical Care, and Acute Care Surgery [phone] Elda Emmanuel MD - 05/03/2014 3:49 AM PST EMERGENCY GENERAL SURGERY ICU PROGRESS NOTE: Attending Physician: Jf Wiseman MD 05/03/2014 ID: Mackenzie Hartley is a 58 year old female with COPD, Crohn's disease, chronic pain, and coagulopa thy resulting in splenic artery thrombosis while anticoagulated with warfarin transferred to [facility] from [facility] for management of retroperitoneal bleed. She [...] anticoagulated with warfarin transferred to [facility] from [facility] for management of retroperitoneal bleed. 1. [...] this patient encounter. Elda Glez MD Pager [phone] Plastic Surgery R2 [facility] Diagnoses: 555.2 Crohn's disease of [...] Q6W Remicade- will consult hematology in [facility] [facility] [place] week regarding of timing of resuming remicade Severe malnutrition: - TF at goal, + BM, Dysphagia: WEB ANALYTICS DEVELOPER following- remains NPO Anasarca: compression socks,. [...] Call team 01/11 for questions: Team Pager [phone] ATTENDING ADDENDUM: I saw and examined Mackenzie [...] Marge Harris PA-C. Jf Wiseman MD FACS hr manager Division of Trauma, Critical Care, and Acute Care Surgery [phone] ngeles Hannah MD - 05/02/2014 6:55 AM PST [facility] DEPARTMENT OF SURGERY EGS ICU Progress Note Division of Trauma and Critical Care ID: Mackenzie Hartley is a 58 year old female with COPD, Crohn's disease, chronic pain, and 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 while anticoagulated with warfarin transferre d to [facility] from [facility] for management of retroperitoneal bleed. She [...] anticoagulated with warfarin transferred to [facility] from [facility] for management of retroperitoneal bleed. Neuro: [...] Hannah MD General Surgery Resident, R3 Pager [phone] [place] [address] Kristina, Angeles Hanna MD - 05/02/2014 2:14 [...] Hannah MD General Surgery Resident, R3 Pager [phone] Jean-Claude Chaidez DMD, MD - 05/01/2014 10:36 AM PST [facility] DEPARTMENT OF SURGERY EGS Progress Note ID: Mackenzie Hartley is a 58 year old female with COPD, Crohn's disease, chronic pain, and 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 while anticoagulated with warfarin transferre d to [facility] from [facility] for management of retroperitoneal bleed. She [...] anticoagulated with warfarin transferred to [facility] from [facility] for management of retroperitoneal bleed. Overall, she is improving. However, remains tachycardic with leukocytosis - WBC [address] 05/01 showed - moderate ascites and pleural effusions and hematoma. Neuro: dilaudid IV PRN Speech: following continue daily to eval swallow CV: HD stable L CAR SHAGGER PSA resolved Continue IV lasix today 20 [...] hospitalization Jean-Claude Albrecht D.M.D., M.D. [facility] [place] [address] [place] [facility] [place] [address] Jf Jones MD - 04/30/2014 11:08 AM [...] hospital. She was transferred to [facility] fo r active hemorrhage and underwent IR [...] malnutrition: - pulled DHT- refusing replacement. Await WEB ANALYTICS DEVELOPER eval if passes swallow will give chance to prove adequate po intake. Expect will require TFs again Dysphagia: await WEB ANALYTICS DEVELOPER eval today. Cont meds and feed [...] Call team 01/11 for questions: Team Pager [phone] ATTENDING ADDENDUM: I saw and examined Mackenzie [...] Marge Harris PA-C. Jf Wiseman MD FACS hr manager Division of Trauma, Critical Care, and Acute Care Surgery [phone] Angeles Acevedo MD - 04/30/2014 1:18 AM PST [facility] DEPARTMENT OF SURGERY EGS ICU Progress Note Division of Trauma and Critical Care ID: Mcakenzie Hartley is a 58 year old female with COPD, Crohn's disease, chronic pain, and 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 while anticoagulated with warfarin transferre d to [facility] from [facility] for management of retroperitoneal bleed. She [...] nystatin (MYCOSTATIN) cream, , topical, QID PRN, aGyatri Christensen PA-C oxyCODONE (immediate release) (ROXICODONE) tablet [...] anticoagulated with warfarin transferred to [facility] from [facility] for management of retroperitoneal bleed. Overall, she is improving. However, remains tachycardic with leukocytosis -- difficult to t ease out if this is secondary to asplenia. Will obtain CT abd pelvis today to clarify. Neuro: dilaudid IV PRN and intermittent versed for sedation CV: HD stable L CAR SHAGGER PSA resolved Pulm: titrate to O2 >92% [...] Hannah MD General Surgery Resident, R3 Pager [phone] [facility] [address] [place] [address] Aravind Morales MD - 04/29/2014 11:43 AM PSTICU Attending: I saw and examined Mackenzie Hartley ([id number]) with Erin Christensen PA-C on 04/29/14 and [...] documented by valentin HASTINGS. Aravind Massey MD Costume Design Teacher Trauma, Critical Care & Acute Care [...] hospital. She was transferred to [facility] fo r active hemorrhage. Hospital Day #6 [...] resolving cont current H2O via DHT Dysphagia: WEB ANALYTICS DEVELOPER consulted, ice chips only. Cont meds [...] Call team 01/11 for questions: Team Pager [phone] Chelly Blum MD,M PH - 04/28/2014 3:03 [...] hospital. She was transferred to [facility] fo r active hemorrhage. Hospital Day #5 [...] Hyernatremia: resolving, reduce H2O to 30ml/hr Dysphagia: WEB ANALYTICS DEVELOPER consulted, ice chips only. Cont meds [...] Call team 01/11 for questions: Team Pager [phone] Angeles Acevedo MD - 04/28/2014 5:18 AM PST [facility] DEPARTMENT OF SURGERY EGS ICU Progress Note Division of Trauma and Critical Care ID: Mackenzie Hartley is a 58 year old female with COPD, Crohn's disease, chronic pain, and 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 while anticoagulated with warfarin transferre d to [facility] from [facility] for management of retroperitoneal bleed. She is s/p ex lap, splenectomy, and packing with lap pads at OSH and from reopening of laparotomy, evacua tion of 2-3 L of intraabdominal hematoma, closure of open abdomen SUBJECTIVE: Extubated, neurologically doing much better. 3 L NC Underwent successful thrombin injection of L CAR SHAGGER pseudoaneurysm by IR 04/26 MEDICATIONS: Current facility-administered [...] 8.8 mg, 5 mL, oral, BID, Bartolo Thakcer MD zinc sulfate (ORAZINC) tablet 25 mg [...] anticoagulated with warfarin transferred to [facility] from [facility] for management of retroperitoneal bleed. Neuro: dilaudid IV PRN and intermittent versed for sedation CV: HD stable Per vascular: arterial duplex of L CAR SHAGGER to assess for stability of PSA shows [...] Hannah MD General Surgery Resident, R3 Pager [phone] [facility] [address] [address] Xin Irizarry M D - 04/27/2014 11:55 [...] imaging and laboratory study results EPIC DEPARTMENT: [id number] - HEM FACULTY [facility] Place of Service: - Inpatient Date of Service: 04-27-2014 Modifiers: GC - Resident Involved Suggested CPT: 31418 - Initial, Comp; Mod complex 50 min XIN AGEE MD [facility] [address] [place] [address] wRudy powers Do - 04/27/2014 11:55 AM PST Hematology Consult Progress Note Primary Service: EGS Primary Attending: Jf Wiseman MD Hospital Length of Stay: 4 Interval Events: - extubated - thrombin injection to CAR SHAGGER pseudoaneurysm - heparin gtt started last night Subjective: Patient is unable to provide history as she remains encephalopathic. Did speak with her , who confirmed history obtained in initial heme consult note. States she givens s been on warfarin since her 2011 [facility] admission with no known thrombotic [...] and plan. Rudy Sarmiento, DO [facility] Internal Medicine PGY3 Pager [phone] Mirela Josue MD - 04/27/2014 10:[address] [facility] Department of Surgery Progress Note [...] underwent successful thrombin injection of the left CAR SHAGGER pseudoaneurysm by IR last night. Heparin restarted [...] ultraso und guided thrombin injection of left CAR SHAGGER pseudoanuerysm. Will order arterial duplex of left CAR SHAGGER to assess for stability of pseudoaneurysm Monitor [...] - hemorrhage vs HCAP LUCY MARKS MD [facility] [address] [place] [address] This assessment and plan was formulated both independently and in conjunction with the [facility] ular Surgery Team as well as the attending provider of record above regarding management of this patient and their medical issues. It is accurate to the best of my knowledge, and is s ubject to modification based on clinical developments, new data, or final imaging results. [facility] staff I saw and evaluated the patient. I agree with the findings and the plan of care as jannie hair in the resident s note. Left femoral pseudoaneurysm appears resolved. Stable from [facility] standpoint. No further imaging required unless clinical status changes. Mirela Thompson M.D. [facility] Vascular Surgery [address] [facility] [place] [address] Email: [email or web address] Jf Jones MD - 04/27/2014 8:03 AM PST Trauma / Surgical Critical Care Service - Progress Note Name: MCAKENZIE HARTLEY Date: 04/27/2014 Time: 8:04 AM Author: GAYATRI CHRISTENSEN PA-C HPI: 58 y.o. female admitted on 04/23/2014 10:39 AM with Crohn's, COPD, chronic pain, recurr ent UTIs, and known splenic artery thrombosis s/p retroperitoneal hemorrhage on therapeutic heparin infusion. Surgical exploration at referring hospital. She was transferred to [facility] fo r active hemorrhage. Hospital Day #4 [...] H2O Hyernatremia: water 100ml/hr via DHT Dysphagia: WEB ANALYTICS DEVELOPER consulted, ice chips only JULIANE: ATN [...] Call team 01/11 for questions: Team Pager [phone] ATTENDING ADDENDUM: I saw and examined Mackenzie [...] Erin Christensen PA-C. Jf Wiseman MD FACS hr manager Division of Trauma, Critical Care, and Acute Care Surgery [phone] ankerElda MD - 04/27/2014 4:52 AM PST EMERGENCY GENERAL SURGERY ICU PROGRESS NOTE: Attending Physician: Jf Wiseman MD 04/27/2014 ID: Mackenzie Hartley is a 58 year old female with COPD, Crohn's disease, chronic pain, and coagulopa thy resulting in splenic artery thrombosis while anticoagulated with warfarin transferred to [facility] from [facility] for management of retroperitoneal bleed. She [...] HR EVENTS: - Incidentally found to have CAR SHAGGER pseudoaneurysm, injected with thrombin by IR - [...] anticoagulated with warfarin transferred to [facility] from [facility] for management of retroperitoneal bleed. Neuro: [...] this patient encounter. Elda Glez MD Pager [phone] Plastic Surgery R2 [facility] Diagnoses: 555.2 Crohn's disease of [...] Attending:Dr. Lenny Calhoun MD (Fellow)/pager: Dr. Vang [phone] Medications Procedure Meds: Dilaudid IV 0.5mg Midazolam [...] hospital. She was transferred to [facility] fo r active hemorrhage. Hospital Day #4 [...] Call team 01/11 for questions: Team Pager [phone] Angeles Acevedo MD - 04/26/2014 5:24 AM PST [facility] DEPARTMENT OF SURGERY EGS ICU Progress Note Division of Trauma and Critical Care ID: Mackenzie Hartley is a 58 year old female with COPD, Crohn's disease, chronic pain, and 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 while anticoagulated with warfarin transferre d to [facility] from [facility] for management of retroperitoneal bleed. She [...] anticoagulated with warfarin transferred to [facility] from [facility] for management of retroperitoneal bleed. Neuro: [...] Hannah MD General Surgery Resident, R3 Pager [phone] [facility] & [address] [place] [address] Nithya Andres MD - 04/25/2014 6:40 AM PSTTSICU Attending 04/25/14 58 yo woman critically ill with complex surgical and medical history, transferred to [facility] w ith intraabdominal and retroperitoneal [...] Call team 01/11 for questions: Team Pager [phone] Angeles Acevedo MD - 04/25/2014 4:39 AM PST [facility] DEPARTMENT OF SURGERY EGS ICU Progress Note Division of Trauma and Critical Care ID: Mackenzie Hartley is a 58 year old female with COPD, Crohn's disease, chronic pain, and 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 while anticoagulated with warfarin transferre d to [facility] from [facility] for management of retroperitoneal bleed. She [...] anticoagulated with warfarin transferred to [facility] from [facility] for management of retroperitoneal bleed. Neuro: [...] Hannah MD General Surgery Resident, R3 Pager [phone] [facility] & [place] [id number] [facility] [address] ich Redding MD - 04/24/2014 9:21 AM [...] extubate Initial surgical contact: Miladis at pager [phone] Nithya Andres MD - 04/24/2014 5:25 AM [...] referring hospital. IR embolization at [facility]. Hospital Day #1 ICU Day [...] Call team 01/11 for questions: Team Pager [phone] Angeles Acevedo MD - 04/24/2014 2:04 AM PST [facility] DEPARTMENT OF SURGERY EGS Consult Progress Note Division of Trauma and Critical Care ID: Mackenzie Hartley is a 58 year old female with COPD, Crohn's disease, chronic pain, and 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 while anticoagulated with warfarin transferre d to [facility] from [facility] for management of retroperitoneal bleed. She [...] anticoagulated with warfarin transferred to [facility] from [facility] for management of retroperitoneal bleed. She [...] Hannah MD General Surgery Resident, R3 Pager [phone] [facility] [place] [address] [place] [address] Rudy Parker M D - 04/23/2014 5:07 PM PSTBRIEF INTERVENTIONAL RADIOLOGY PROCEDURE NOTE DATE: 04/23/2014 5:07 PM PROCEDURE: Pelvic angiography with glue embolization PRE-PROCEDURE DIAGNOSIS: Retroperitoneal hematoma POST-PROCEDURE DIAGNOSIS: Same IR STAFF: Lenny IR FELLOW: Ciera ACCESS: L CAR SHAGGER MEDICATIONS: Fentanyl IV 150 mcg Midazolam IV [...] + + + + | [facility] | [address] | [place] [address] | | | SERVICESJANELL | [address] [...] - MARILY[facility] | [address] | [place], [place] | | | [facility] | [facility] | [address] | | | TESTS | | | [...] [facility] | [address] | [place] [address] | | | SERVICES, CORE | PARK [...] [facility] | [address] | [place] [address] | | | SERVICES, CORE | PARK [...] | | | LABORATORY | | | TRINIDADIAN | | | SERVICES, | | | [...] | + + + + + | [facility] | [address] [facility] [facility] | [place] [address] | | | ARON, JANELL | KRISTEN [...] MARQUAM | [address] | [place], [place] | | | [facility] | [address] | [address] | | | TESTS | | | [...] MARGOPIAM | [address] | [place], [place] | | | [facility] | [address] | [address] | | | TESTS | | | [...] + + + + | [facility] | [address] | [place] [address] | | | SERVICES, CORE | [address] | | | + + + + + MAGNESIUM, PLASMA (05/12/2014 1:07 AM PST) + +---------+ + + + | Component | Value | Ref Range | Performed | Pathologist | | | | | At | Signature | + +---------+ + + + | MAGNESIUM,P | 1.5 (L) | 1.8 - 2.5 mg/dL | [facility] | | | LASMA | [...] | + + + + + | [facility] | [address] [facility] | [place] [address] | | | SERVICES, CORE | KRISTEN [...] | | | LABORATORY | | | TRINIDADIAN | | | SERVICES, | | | [...] equation recommended by the | [facility] | | National Kidney Disease [...] + + + + | [facility] | [address] | [place] [address] | | | ARON, JANELL | KRISTEN [...] [facility] | [address] | [place] [address] | | | SERVICES, JANELL | KRISTEN [...] - MARQUAM | [address] | [place], [place] | | | [facility] | [address] | [address] | | | TESTS | | | [...] + + + | [facility] | [address] | [place], [place] | | | [facility] | [address] | [address] | | | TESTS | | | [...] [facility] | [address] | [place] [address] | | | SERVICES, CORE | PARK [...] | + + + + + | [facility] | [address] | [place] [address] | | | SERVICES, CORE | KRISTEN [...] | | | LABORATORY | | | TRINIDADIAN | | | SERVICES, | | | [...] equation recommended by the | [facility] | | National Kidney Disease [...] + + + + | [facility] | [address] | [place] [address] | | | SERVICES, CORE | PARK [...] (H) | 0.90 - 1.20 INR | [facility] | | | | | | LABORATORY [...] + + + + | [facility] | [address] | [place] [address] | | | JANELL SHARP | KRISTEN [...] 60 - 99 mg/dL | [facility] - | | | GLUCOSE, [...] SANDERS | [address] | [place], [place] | | | [facility] | [address] | [address] | | | TESTS | | | [...] MARILYN | [address] | [place], [place] | | | KAILEY MOORE | [facility] | [address] | | | TESTS | | | [...] + +---------+ + + | [facility] DEPARTMENT OF | | | [...] MARILYN | [address] | [place], [place] | | | [place] [employer] [place] | [facility] | [address] | | | TESTS | | | [...] 60 - 99 mg/dL | [facility] - | | | GLUCOSE, [...] SANDERS | [address] | [place], [place] | | | [facility] | [address] | [address] | | | TESTS | | | [...] + + + + | [facility] | [address] | [place] [address] | | | SERVICES, CORE | PARK [...] | + + + + + | [facility] | [address] [facility] [facility] | [place] [address] | | | SERVICES, CORE | KRISTEN [...] | | | LABORATORY | | | TRINIDADIAN | | | SERVICES, | | | [...] equation recommended by the | [facility] | | National Kidney Disease [...] + + + + | [facility] | [address] | [place] [address] | | | SERVICES, CORE | PARK [...] (H) | 0.90 - 1.20 INR | [facility] | | | | | [...] + + + + | [facility] | [address] | [place] [address] | | | SERVICES, CORE | PARK [...] MARQUAM | [address] | [place], [place] | | | [facility] | [address] | [address] | | | TESTS | | | [...] SANDERS | [address] | [place], [place] | | | [facility]ARE | [address] | [address] | | | TESTS | | | [...] MARQUAM | [address] | [place], [place] | | | [facility]ARE | [address] | [address] | | | TESTS | | | [...] [facility] | [address] | [place] [address] | | | ARON, JANELL | PARK [...] [facility] | [address] | [place] [address] | | | SERVICES, CORE | PARK [...] | | | LABORATORY | | | TRINIDADIAN | | | SERVICES, | | | [...] | + + + + + | [facility] | [address] | [place] [address] | | | SERVICES, CORE | PARK [...] | + + + + + | [facility] | [address] | [place] [address] | | | SERVICES, CORE | KRISTEN [...] MARQUAM | [address] | [place], [place] | | | [facility] [employer] [facility] [place] | [facility] | [address] | | | TESTS | | | [...] SANDERS | [address] | [place], [place] | | | [facility] | [address] | [address] | | | TESTS | | | [...] [facility] | [address] | [place] [address] | | | SERVICES, CORE | PARK [...] [facility] | [address] | [place] [address] | | | SERVICES, CORE | PARK [...] | | | LABORATORY | | | TRINIDADIAN | | | SERVICES, | | | [...] | + + + + + | [facility] | [address] | [place] [address] | | | SERVICES, JANELL | KRISTEN [...] + + + + | [facility] | [address] [facility] [facility] | [place] [address] | | | SERVICES, JANELL | KRISTEN [...] MARQUAM | [address] | [place], [place] | | | [facility] | [address] | [address] | | | TESTS | | | [...] MARQUAM | [address] | [place], [place] | | | [facility] | [address] | [address] | | | TESTS | | | [...] + + + + | [facility] | [address] | [place] [address] | | | SERVICES, CORE | [address] | | | + + + + + MAGNESIUM, PLASMA (05/07/2014 3:15 AM PST) + +---------+ + + + | Component | Value | Ref Range | Performed | Pathologist | | | | | At | Signature | + +---------+ + + + | MAGNESIUM,P | 1.6 (L) | 1.8 - 2.5 mg/dL | [facility] | | | [facility] | | | [...] | + + + + + | [facility] | [address] [facility] [facility] | [place] [address] | | | SERVICES, CORE | KRISTEN [...] | | | LABORATORY | | | TRINIDADIAN | | | SERVICES, | | | [...] the MDRD equation recommended by the | [facility] | | National Kidney Disease Education Program. [...] + + + + | [facility] | [address] | [place] [address] | | | ARON, JANELL | KRISTEN [...] + + + | [facility] | [address] | [place] [address] | | | SERVICES, JANELL | KRISTEN [...] - MARILYN | [address] | [place], [place] | | | [facility] [facility] | [address] | [address] | | | TESTS | | | [...] | + + + + + | [facility] | [address] | [place] [address] | | | SERVICES, CORE | KRISTEN [...] [facility] | [address] | [place], [place] | | | [facility] | [address] | [address] | | | TESTS | | | [...] [facility] | [address] | [place], [place] | | | [facility] | [address] | [address] | | | TESTS | | | [...] [facility] | [address] | [place] [address] | | | SERVICES, CORE | PARK [...] [facility] | [address] | [place] [address] | | | SERVICES, CORE | PARK [...] | | | LABORATORY | | | TRINIDADIAN | | | SERVICES, | | | [...] | + + + + + | [facility] | [address] [facility] | [place] [address] | | | SERVICES, JANELL | [address] | | | + + + [...] + + + + | [facility] | [address] [facility] [address] [address] | [place] [address] | | | ARON, JANELL | KRISTEN [...] | + + + + + | [facility] | [address] | [place] [address] | | | SERVICES, CORE | KRISTEN [...] | + + + + + | [facility] | [address] | [place] [address] | | | SERVICES, CORE | PARK [...] | + + + + + | [facility] | [address] [facility] | [place] [address] | | | SERVICES, CORE | KRISTEN [...] | | | LABORATORY | | | TRINIDADIAN | | | SERVICES, | | | [...] equation recommended by the | [facility] | | National Kidney Disease [...] + + + + | [facility] | [address] | [place] [address] | | | SERVICES, CORE | PARK [...] [facility] | [address] | [place] [address] | | | SERVICES, JANELL | KRIST[address] [...] + + + + | [facility] | [address] | [place], [place] | | | [facility] | [address] | [address] | | + + + + + [...] [facility] | [address] | [place] [address] | | | SERVICES, CORE | KRISTEN [...] | + + + + + | [facility] | [address] | [place] [address] | | | SERVICES, CORE | KRISTEN [...] [facility] | [address] | [place] [address] | | | SERVICES, CORE | PARK [...] | + + + + + | [facility] | [address] [facility] [facility] | [place] [address] | | | SERVICES, CORE | KRISTEN [...] | | | LABORATORY | | | TRINIDADIAN | | | SERVICES, | | | [...] [facility] | [address] | [place] [address] | | | SERVICES, CORE | KRISTEN [...] (H) | 0.90 - 1.20 INR | [facility] | | | | | | LABORATORY [...] [facility] | [address] | [place] [address] | | | SERVICES, CORE | KRISTEN [...] | + + + + + | [facility] | [address] | [place] [address] | | | SERVICES, JANELL | KRISTEN [...] [facility] | [address] | [place] [address] | | | SERVICES, CORE | PARK [...] [facility] | [address] | [place] [address] | | | SERVICES, CORE | PARK [...] + + + + | [facility] | [address] | [place] [address] | | | ARON, JANELL | KRISTEN [...] 60 - 99 mg/dL | [facility] - | | | GLUCOSE, [...] SANDERS | [address] | [place], [place] | | | [employer] [employer] [place] | [facility] | [address] | | | TESTS | | | [...] + +---------+ + + | [facility] DEPARTMENT OF | | | [...] | [facility] | [address] [address] | [place] [address] | | | SERVICES, CORE | PARK [...] | + + + + + | [facility] | [address] | [place] [address] | | | SERVICES, CORE | KRISTEN [...] | | | LABORATORY | | | TRINIDADIAN | | | SERVICES, | | | [...] + + + + | [facility] | [address] | [place] [address] | | | SERVICES, CORE | PARK [...] + + + + | [facility] | [address] | [place] [address] | | | SERVICES, CORE | PARK [...] | + + + + + | [facility] | [address] | [place] [address] | | | SERVICES, CORE | KRISTEN [...] | | | LABORATORY | | | TRINIDADIAN | | | SERVICES, | | | [...] the MDRD equation recommended by the | [facility] | | National Kidney Disease Education Program. [...] + + + + | [facility] | [address] | [place] [address] | | | ARON, JANELL | KRISTEN [...] | | | LABORATORY | | | TRINIDADIAN | | | SERVICES, | | | [...] | + + + + + | [facility] | [address] | [place] [address] | | | SERVICES, CORE | KRISTEN [...] [facility] | [address] | [place], [place] | | | THERAPY | [address] | [address] | | + + + + + [...] RESPIRATORY | [address] | [place], [place] | | | THERAPY | [address] | [address] | | + + + + + [...] | + + + + + | [facility] | [address] | [place] [address] | | | SERVICES, CORE | KRISTEN [...] | [facility] | [address] [facility] [address] [facility] | [place] [address] | | | SERVICES, CORE | PARK [...] | + + + + + | [facility] | [address] | [place] [address] | | | SERVICES, CORE | [address]RIST[address] | | | + + + + [...] | | | LABORATORY | | | TRINIDADIAN | | | SERVICES, | | | [...] [facility] | [address] | [place] [address] | | | SERVICES, CORE | PARK [...] [facility] | [address] | [place] [address] | | | SERVICES, CORE | KRISTEN [...] DEPT OF | [address] | [place], [place] | | | CARDIOLOGY | [address] | [address] | | + + + + + [...] + +---------+ + + | [facility] DEPARTMENT OF | | | [...] + + + + | [facility] | [address] | [place] [address] | | | JANELL SHARP | KRISTEN [...] 60 - 99 mg/dL | [facility] - | | | GLUCOSE, [...] [facility] | [address] | [place], [place] | | | [facility]SC[facility] PO[facility] CARE | [address] | [address] | | | TESTS | | | [...] [facility] | [address] | [place], [place] | | | [facility] [place] | [address] | [address] | | | TESTS | | | [...] | + + + + + | [facility] | [address] | [place] [address] | | | SERVICES, CORE | KRISTEN [...] Bilateral | | | | | | [id number] | | | | | | pleural [...] LABORATORY | [address] | [place] [address] | | | SERVICES, CORE | [address] | | | + + + + + MAGNESIUM, PLASMA (05/01/2014 2:45 AM PST) + +-------+ + + + | Component | Value | Ref Range | Performed | Pathologist | | | | | At | Signature | + +-------+ + + + | MAGNESIUM,P | 1.9 | 1.8 - 2.5 mg/dL | [facility] | | | [facility]AS[facility] | | | [...] [facility] | [address] | [place] [address] | | | SERVICES, CORE | KRISTEN [...] | | | LABORATORY | | | TRINIDADIAN | | | SERVICES, | | | [...] + + + + | [facility] | [address] [facility] [facility] | [place] [address] | | | JANELL SHARP | KRISTEN [...] + + + + | [facility] | [address] [facility] [facility] | [place] [address] | | | SERVICES, JANELL | [address]RIST[address] [...] + + | [facility] | [address] [facility] [address] | [place], [place] | | | [facility] | [address] | [address] | | | TESTS | | | [...] + +---------+ + + | [facility] DEPARTMENT OF | | | [...] + +---------+ + + | [facility] DEPARTMENT OF | | | [...] + +---------+ + + | [facility] DEPARTMENT OF | | | [...] | + + + + + | [facility] | [address] | [place] [address] | | | SERVICES, CORE | PARK [...] | + + + + + | [facility] | [address] | [place] [address] | | | SERVICES, CORE | KRISTEN [...] + + + + | [facility] | [address] | [place] [address] | | | ARON, JANELL | KRISTEN [...] | | | LABORATORY | | | TRINIDADIAN | | | SERVICES, | | | [...] [facility] | [address] | [place] [address] | | | SERVICES, CORE | PARK [...] | | | LABORATORY | | | TRINIDADIAN | | | SERVICES, | | | [...] + + + + | [facility] | [address] | [place] [address] | | | SERVICES, JANELL | KRISTEN [...] [facility] | [address] | [place], [place] | | | [facility] CARE | [facility] | [address] | | | TESTS | | | [...] [facility] | [address] | [place] [address] | | | JANELL SHARP | KRISTEN [...] [facility] | [address] | [place] [address] | | | SERVICES, CORE | PARK [...] | | | LABORATORY | | | TRINIDADIAN | | | SERVICES, | | | [...] | + + + + + | [facility] | [address] | [place] [address] | | | SERVICES, CORE | KRISTEN [...] | + + + + + | [facility] | [address] | [place] [address] | | | SERVICES, CORE | KRISTEN [...] [facility] | [address] | [place] [address] | | | JANELL SHARP | KRISTEN [...] 60 - 99 mg/dL | [facility] - | | | GLUCOSE, [...] [facility] | [address] | [place], [place] | | | [facility] | [address] | [address] | | | TESTS | | | [...] [facility] | [address] | [place] [address] | | | SERVICES, CORE | [address] | | | + + + + + INR (04/28/2014 8:00 AM PST) + +-------+ + + + | Component | Value | Ref Range | Performed | Pathologist | | | | | At | Signature | + +-------+ + + + | INR | 1.03 | 0.90 - 1.20 INR | [facility] | | | | | | LABORATORY [...] | [facility] | [address] [facility] | [place] [address] | | | SERVICES, CORE | PARK [...] [facility] | [address] | [place] [address] | | | SERVICES, CORE | KRISTEN [...] [facility] | [address] | [place] [address] | | | SERVICES, CORE | PARK [...] | | | LABORATORY | | | TRINIDADIAN | | | SERVICES, | | | [...] | + + + + + | [facility] | [address] | [place] [address] | | | SERVICES, CORE | KRISTEN [...] | + + + + + | [facility] | [address] | [place] [address] | | | SERVICES, JANELL | KRISTEN [...] + + + + | [facility] | [address] [facility] | [place] [address] | | | SERVICES, JANELL | KRISTEN [...] + +---------+ + + | [facility] DEPARTMENT OF | | | [...] | + + + + + | [facility] | [address] | [place] [address] | | | SERVICES, CORE | KRISTEN [...] SANDERS | [address] | [place], [place] | | | [facility] | [facility] | [address] | | | TESTS | | | [...] | + + + + + | [facility] | [address] [facility] | [place] [address] | | | ARON, JANELL | KRISTEN [...] | + + + + + | [facility] | [address] | [place] [address] | | | SERVICES, CORE | KRISTEN [...] | + + + + + | [facility] | [address] | [place] [address] | | | SERVICES, CORE | KRISTEN [...] [facility] | [address] | [place] [address] | | | SERVICES, CORE | PARK [...] | | | LABORATORY | | | TRINIDADIAN | | | SERVICES, | | | [...] | + + + + + | [facility] | [address] [facility] | [place] [address] | | | SERVICES, CORE | KRISTEN [...] [facility] | [address] | [place] [address] | | | SERVICES, CORE | PARK [...] | + + + + + | [facility] | [address] [facility] | [place] [address] | | | SERVICES, CORE | KRISTEN [...] + + + + + | [facility] | [address] | [place] [address] | | | SERVICES, CORE | PARK [...] + + + + | [facility] | [address] | [place] [address] | | | SERVICES, CORE | PARK [...] [facility] | [address] | [place] [address] | | | SERVICES, CORE | PARK [...] | | | LABORATORY | | | TRINIDADIAN | | | SERVICES, | | | [...] | + + + + + | [facility] | [address] | [place] [address] | | | SERVICES, CORE | KRISTEN [...] PRIMARY | | | | | | SUPERVISOR NEWSP[employer]ER DELIVERIES: Rudy | | | | | | [...] [facility] | [address] | [place], [place] | | | [facility] CARE | [address] | [address] | | | TESTS | | | [...] + +---------+ + + | [facility] DEPARTMENT OF | | | [...] [facility] | [address] | [place] [address] | | | SERVICES, CORE | KRISTEN [...] | + + + + + | [facility] | [address] | [place] [address] | | | SERVICES, CORE | KRISTEN [...] | + + + + + | [facility] | [address] | [place] [address] | | | SERVICES, CORE | KRISTEN [...] | + + + + + | [facility] | [address] | [place] [address] | | | SERVICES, JANELL | KRISTEN [...] + + + + | [facility] | [address] | [place] [address] | | | SERVICES, JANELL | KRISTEN [...] | + + + + + | [facility] | [address] | [place] [address] | | | SERVICES, CORE | KRISTEN [...] | | | LABORATORY | | | TRINIDADIAN | | | SERVICES, | | | [...] + + + + | [facility] | [address] | [place] [address] | | | JANELL SHARP | KRISTEN [...] [facility] | [address] | [place] [address] | | | SERVICES, CORE | PARK [...] + + + + | [facility] | [address] | [place] [address] | | | SERVICES, CORE | KRISTEN [...] 60 - 99 mg/dL | [facility] - | | | GLUCOSE, [...] [facility] | [address] | [place], [place] | | | OSCAR POINT OF CARE | [address] | [address] | | | TESTS | | | [...] | | | LABORATORY | | | TRINIDADIAN | | | SERVICES, | | | [...] equation recommended by the | [facility] | | National Kidney Disease [...] + + + + | [facility] | [address] | [place] [address] | | | JANELL SHARP | KRISTEN [...] 60 - 99 mg/dL | [facility] - | | | GLUCOSE, [...] [facility] | [address] | [place], [place] | | | OSCAR POINT OF CARE | [address] | [address] | | | TESTS | | | [...] [facility] | [address] | [place] [address] | | | SERVICES, CORE | KRISTEN [...] + + + + | [facility] | [address] | [place] [address] | | | JANELL SHARP | KRISTEN [...] + + + + | PRODUCT | [id number] | | [facility] | | | UNIT [...] + + + + | BLOOD | [id number] | | [facility] | | | PRODUCT [...] DEPARTMENT OF | [address] | [place] [address] | | | PATHOLOGY | [address] [...] + + + + | PRODUCT | [id number] | | [facility] | | | UNIT [...] + + + + | BLOOD | [id number] | | [facility] | | | PRODUCT [...] + + + + | [facility] DEPARTMENT OF | [address] | [place] [address] | | | PATHOLOGY | [address] [...] [facility] | [address] | [place] [address] | | | SERVICES, CORE | PARK [...] + + + + | [facility] | [address] | [place] [address] | | | SERVICES, CORE | PARK [...] | | | LABORATORY | | | TRINIDADIAN | | | SERVICES, | | | [...] [facility] | [address] | [place] [address] | | | SERVICES, CORE | PARK [...] ARTUR GARDNER | [address] | [place] [address] | | | SERVICES, CORE | KRISTEN [...] | + + + + + | [facility] | [address] [address] | [place] [address] | | | SERVICES, CORE | PARK [...] [facility] | [address] | [place] [address] | | | SERVICES, CORE | PARK [...] + + + + | [facility] | [address] | [place] [address] | | | SERVICES, CORE | KRISTEN [...] (H) | 60 - 99 mg/dL | [facility] - | | | GLUCOSE, | | [...] [facility] | [address] | [place], [place] | | | [facility] | [address] | [address] | | | TESTS | | | [...] [facility] | [address] | [place], [place] | | | [facility] | [address] | [address] | | | TESTS | | | [...] | + + + + + | [facility] | [address] | [place] [address] | | | SERVICES, CORE | KRISTEN [...] | + + + + + | [facility] | [address] | [place] [address] | | | SERVICES, CORE | KRISTEN [...] + +---------+ + + | [facility] DEPARTMENT OF | | | [...] [facility] | [address] | [place] [address] | | | SERVICES, CORE | PARK [...] | + + + + + | [facility] | [address] | [place] [address] | | | SERVICES, CORE | KRISTEN [...] [facility] | [address] | [place] [address] | | | SERVICES, CORE | PARK [...] | | | LABORATORY | | | TRINIDADIAN | | | SERVICES, | | | [...] + + + + | [facility] | [address] | [place] [address] | | | SERVICES, JANELL | KRISTEN [...] [facility] | [address] | [place] [address] | | | SERVICES, CORE | PARK [...] [facility] | [address] | [place] [address] | | | SERVICES, JANELL | KRISTEN [...] [facility] | [address] | [place], [place] | | | THERAPY | [address] | [address] | | + + + + + [...] [facility] | [address] | [place], [place] | | | THERAPY | [address] | [address] | | + + + + + [...] | | | LABORATORY | | | TRINIDADIAN | | | SERVICES, | | | [...] | + + + + + | [facility] | [address] | [place] [address] | | | SERVICES, CORE | KRISTEN [...] + + + + | [facility] | [address] | [place] [address] | | | JANELL SHARP | KRISTEN [...] + + + + | [facility] | [address] | [place] [address] | | | SERVICES, CORE | PARK [...] [facility] | [address] | [place] [address] | | | SERVICES, CORE | PARK [...] [facility] | [address] | [place] [address] | | | SERVICES, CORE | PARK [...] | + + + + + | [facility] | [address] | [place] [address] | | | ARON, JANELL | KRISTEN [...] | + + + + + | [facility] | [address] [facility] [address] | [place] [address] | | | SERVICES, CORE | KRISTEN [...] | | | LABORATORY | | | TRINIDADIAN | | | SERVICES, | | | [...] equation recommended by the | [facility] | | National Kidney Disease [...] + + + + | [facility] | [address] | [place] [address] | | | SERVICES, CORE | PARK [...] | + + + + + | [facility] | [address] | [place] [address] | | | SERVICES, CORE | PARK [...] [facility] | [address] | [place], [place] | | | [facility] | [address] | [address] | | | TESTS | | | [...] PRIMARY | | | | | | SUPERVISOR NEWSPAPER DELIVERIES: Rudy | | | | | | [...] 5 | | | | | | Liberian vascular sheath | | | | | [...] | | | | for a 5 Liberian | | | | | | IMAcatheter. [...] | | | | artery. A 3 Liberian | | | | | | microcatheterwas [...] CALLEJASuthor: | | | | | | OKNRAD CALLEJAS MD I | | | | [...] DEPT OF | [address] | [place], [place] | | | CARDIOLOGY | [address] | [address] | | + + + + + [...] + + + + | PRODUCT | [id number] | | [facility] | | | UNIT [...] + + + + | BLOOD | [id number] | | [facility] | | | PRODUCT [...] DEPARTMENT OF | [address] | [place] [address] | | | PATHOLOGY | [address] [...] + + + + | PRODUCT | [id number] | | [facility] | | | UNIT [...] + + + + | BLOOD | [id number] | | [facility] | | | PRODUCT [...] DEPARTMENT OF | [address] | [place] [address] | | | PATHOLOGY | [address] [...] + + + + | PRODUCT | [id number] | | [facility] | | | UNIT [...] + + + + | BLOOD | [id number] | | [facility] | | | PRODUCT [...] DEPARTMENT OF | [address] | [place], [place] [address] | | | PATHOLOGY | [address] [...] + + + + | PRODUCT | [id number] | | [facility] | | | UNIT [...] + + + + | BLOOD | [id number] | | [facility] | | | PRODUCT [...] DEPARTMENT OF | [address] | [place] [address] | | | PATHOLOGY | [address] [...] + + + + | PRODUCT | [id number] | | [facility] | | | UNIT [...] + + + + | BLOOD | [id number] | | [facility] | | | PRODUCT [...] | [address] | [place] [address] | | | PATHOLOGY | [address] [...] + + + + | PRODUCT | [id number] | | [facility] | | | UNIT [...] + + + + | BLOOD | [id number] | | [facility] | | | PRODUCT [...] | + + + + + | [facility] | [address] | [place] [address] | | | PATHOLOGY | [address] [...] + + + + | PRODUCT | [id number] | | [facility] | | | UNIT [...] + + + + | BLOOD | [id number] | | [facility] | | | PRODUCT [...] DEPARTMENT OF | [address] | [place] [address] | | | PATHOLOGY | [address] [...] + + + + | PRODUCT | [id number] | | [facility] | | | UNIT [...] + + + + | BLOOD | [id number] | | [facility] | | | PRODUCT [...] + + + + | [facility] DEPARTMENT | [address] | [place] [address] | | | PATHOLOGY | [address] [...] + + + + | PRODUCT | [id number] | | [facility] | | | UNIT [...] + + + + | BLOOD | [id number] | | [facility] | | | PRODUCT [...] DEPARTMENT OF | [address] | [place] [address] | | | PATHOLOGY | [address] [...] + + + + | PRODUCT | [id number] | | [facility] | | | UNIT [...] + + + + | BLOOD | [id number] | | [facility] | | | PRODUCT [...] | + + + + + | [facility] | [address] | [place] [address] | | | PATHOLOGY | [address] [...] + + + + | PRODUCT | [id number] | | [facility] | | | UNIT [...] + + + + | BLOOD | [id number] | | [facility] | | | PRODUCT [...] DEPARTMENT OF | [address] | [place] [address] | | | PATHOLOGY | [address] [...] + + + + | PRODUCT | [id number] | | [facility] | | | UNIT [...] + + + + | BLOOD | [id number] | | [facility] | | | PRODUCT [...] | + + + + + | [facility] | [address] | [place] [address] | | | PATHOLOGY | [address] [...] + + + + | PRODUCT | [id number] | | [facility] | | | UNIT [...] + + + + | BLOOD | [id number] | | [facility] | | | PRODUCT [...] DEPARTMENT OF | [address] | [place], [place] [address] | | | PATHOLOGY | [address] [...] + + + + | PRODUCT | [id number] | | [facility] | | | UNIT [...] + + + + | BLOOD | [id number] | | [facility] | | | PRODUCT [...] + + + + | [facility] DEPARTMENT | [address] | [place] [address] | | | PATHOLOGY | [address] [...] + + + + | PRODUCT | [id number] | | [facility] | | | UNIT [...] + + + + | BLOOD | [id number] | | [facility] | | | PRODUCT [...] DEPARTMENT OF | [address] | [place] [address] | | | PATHOLOGY | [address] [...] + + + + | PRODUCT | [id number] | | [facility] | | | UNIT [...] + + + + | BLOOD | [id number] | | [facility] | | | PRODUCT [...] | + + + + + | [facility] | [address] | [place] [address] | | | PATHOLOGY | [address] [...] + + + + | PRODUCT | [id number] | | [facility] | | | UNIT [...] + + + + | BLOOD | [id number] | | [facility] | | | PRODUCT [...] DEPARTMENT OF | [address] | [place] [address] | | | PATHOLOGY | [address] [...] + + + + | PRODUCT | [id number] | | [facility] | | | UNIT [...] + + + + | BLOOD | [id number] | | [facility] | | | PRODUCT [...] | + + + + + | [facility] | [address] | [place] [address] | | | PATHOLOGY | [address] [...] + + + + | PRODUCT | [id number] | | [facility] | | | UNIT [...] + + + + | BLOOD | [id number] | | [facility] | | | PRODUCT [...] DEPARTMENT OF | [address] | [place] [address] | | | PATHOLOGY | [address] [...] + + + + | PRODUCT | [id number] | | [facility] | | | UNIT [...] + + + + | BLOOD | [id number] | | [facility] | | | PRODUCT [...] | + + + + + | [facility] | [address] | [place] [address] | | | PATHOLOGY | [address] [...] [facility] | [address] | [place] [address] | | | SERVICES, CORE | PARK [...] [facility] | [address] | [place] [address] | | | SERVICES, CORE | PARK [...] | + + + + + | [facility] | [address] [facility] [facility] | [place] [address] | | | [facility], CORE | [address] | [...] | | | LABORATORY | | | TRINIDADIAN | | | SERVICES, | | | [...] [facility] | [address] | [place] [address] | | | SERVICES, JANELL | [address] [...] [facility] | [address] | [place] [address] | | | SERVICES, CORE | PARK [...] [facility] | [address] | [place] [address] | | | SERVICES, CORE | [...] + + | [facility] | [address] | [place] [address] | | | ARON, JANELL | KRISTEN [...] 60 - 99 mg/dL | [facility] - | | | GLUCOSE, [...] [facility] | [address] | [place], [place] | | | [facility] | [address] | [address] | | | TESTS | | | [...] | + + + + + | [facility] | [address] | [place] [address] | | | SERVICES, | [address] [...] [facility] | [address] | [place] [address] | | | SERVICES, | [address] [...] + + + + | PRODUCT | [id number] | | [facility] | | | UNIT [...] + + + + | BLOOD | [id number] | | [facility] | | | PRODUCT [...] | + + + + + | [facility] | [address] | [place] [address] | | | PATHOLOGY | [address] [...] + + + + | PRODUCT | [id number] | | [facility] | | | UNIT [...] + + + + | BLOOD | [id number] | | [facility] | | | PRODUCT [...] DEPARTMENT OF | [address] | [place] [address] | | | PATHOLOGY | [address] [...] + + + + | PRODUCT | [id number] | | [facility] | | | UNIT [...] + + + + | BLOOD | [id number] | | [facility] | | | PRODUCT [...] | + + + + + | [facility] | [address] | [place] [address] | | | PATHOLOGY | [address] [...] + + + + | PRODUCT | [id number] | | [facility] | | | UNIT [...] + + + + | BLOOD | [id number] | | [facility] | | | PRODUCT [...] DEPARTMENT OF | [address] | [place] [address] | | | PATHOLOGY | [address] [...] + + + + | PRODUCT | [id number] | | [facility] | | | UNIT [...] + + + + | BLOOD | [id number] | | [facility] | | | PRODUCT [...] | + + + + + | [facility] | [address] | [place] [address] | | | PATHOLOGY | [address] [...] + + + + | PRODUCT | [id number] | | [facility] | | | UNIT [...] + + + + | BLOOD | [id number] | | [facility] | | | PRODUCT [...] | + + + + + | [facility] | [address] | [place] [address] | | | PATHOLOGY | [address] [...]
--- OUTSIDE RECORDS SUMMARY | ~2019-11-05 | XMS | Encounter Summary ---
Demographics + + + | Address | [address] | | | [place] [address] | + + + | Home Phone [...] [place], [place] | | | | | [address] | | + + + + + | Cami Sawyer | ECON | Unknown | | + + + + + Care Team Providers + +------+ + | Care Customs Appraiser Name | Role | Phone | + [...] | | | | Hospital Admitting | [place], [place] | | | | | Desk Located on the | [address] | | | | | 9th floor | [phone] | | | | | [place], [place] | | | | | | [address] | | | +--------+---------+ + + + [...] transferred from an outside hospital over [facility] for ischemic colitis. Hospital Course: Arterial thrombi: the patient was admitted to [facility] from [facility] because she presented wit h nausea, bilious vomiting and was found by CT scan to have bowel wall thickening, 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 At arrival to [facility] it was learned that she did NOT indeed have ischemic colitis. 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 She underwent embolectomy on 03/17, which resulted in restorationism of flow and no loss of tissue [...] was agreed that the patient needed a senior living treatment and we settled o n remicade. [...] flagyl - [facility] However, vanc/cefepime/flagyl was used instead [...] Destination: Home Other Discharge Orders and Instructions business practices supervisor your lovenox syringes at the [facility]. Go to the hospital on Tuesday [...] whether or not the INR is truly operations support representative of anticoagulation. In patients with APLA [...] I NR on Tuesday. KIRIT RUST MD [facility] DEPARTMENT: [id number]- [facility] Faculty PPV Place of Service:- Inpatient Date of Service: 04/01/2012 CSN: [id number] Suggested Modifier: GC Resident Involved: Yes Suggested CPT: 37747- Dishcarge < 30 min Electronically signed by [...] questions. Debi Oconnor MD GI/Hepatology Fellow Pager: [phone] INTERVAL HISTORY: MRI abdomen shows no abscess; [...] risk of emboli, I called Dr. Rodriges (director translation for her PCP) to coordinate f/u of [...] noted any additions above. KIRIT RUST MD [facility] DEPARTMENT: [id number]- [facility] Faculty PPV Place of Service:74409- Inpatient Date of Service: 03/31/2012 CSN: [id number] Suggested Modifier: GC Resident Involved: Yes Suggested CPT: 82679- Subsequent, Detailed/high complex, 35 min Davonte De [...] state: J Gastroenterol. 2004 Oct;39(10):948-54. PubMed PMID: [id number]. Consulted Heme for further studies on platelet [...] no insurance. Wanting to go home for [place]. Nurse repor ts that she has admitted [...] notes for assessment and pl an. Nuñez [place], Sub-Pediatric Psychiatrist Pgr: [phone] Rj, Ajay Barrett MD - 03/30/2012 11:39 PM [facility]3 Internal Medicine Attending Interval note - [...] bridge after d/c until coumading therapeutic with resident care director through medication assistance program Hypoalbuminemia (03/14/2012) Assessment: [...] noted any additions above. KIRIT MD YOCASTA [facility] DEPARTMENT: [id number]- [facility] Faculty PPV Place of Service:- Inpatient Date of Service: 03/30/2012 CSN: [id number] Suggested Modifier: GC Resident Involved: Yes Suggested CPT: 36577- Subsequent, Detailed/high complex, 35 min Debi Yepez [...] follow closely Shaun SAEED GI Fellow Pg [phone] signed by Debi Oconnor MD at 03/30/2012 5:32 PM Jacoby Ko MD - 03/30/2012 10:25 AM PSTFormatting of this note might be different from the origi nal. [facility] DEPARTMENT OF SURGERY Daily Progress Note PROGRESS NOTE: Attending Physician: Xin Rust MD 03/31/2012 Subjective/Overnight Events: - latest CT shows resolution of abscess - no GI bleeding - no rectal/anal pain - tolerating reg diet MEDICATIONS: Reviewed in [facility] VITAL SIGNS: Refer to [facility] Intake/Output Summary (Last 24 hours) at [...] concerns. Jacoby Tovar MD Surgery, R2 Diagnoses: [id number] Crohn disease This assessment and plan was [...] state: J Gastroenterol. 2004 Jan;39(10):948-54. PubMed PMID: [id number]. Consulted Heme for further studies on platelet [...] this note might be different from the [facility]. Transfer Accept Note Patient: Mackenzie Hartley [...] Nathan Weeks MD Internal Medicine PGY1 Pager [phone] Cecilia Baker MD - 03/29/2012 6:37 PM [...] team. Debi Oconnor MD GI Fellow Pager [phone] signed by Debi Oconnor MD at 03/29/2012 [...] planning) Debi Oconnor MD Fellow, Gastroenterology pager: [phone] signed by Debi Oconnor MD at 03/29/2012 [...] note for this encounter. OSBALDO GARCIA MD [facility] [address] [place] [address] Andrew Shah MD - 10:41 AM PST [facility] DEPARTMENT OF SURGERY Daily Progress Note PROGRESS NOTE: Attending Physician: Osbaldo Garcia MD 03/29/2012 Subjective/Overnight Events: - bowel prep initiated - Hct stable - no hematochezia or hemetemesis - MEDICATIONS: Reviewed in [facility] VITAL SIGNS: Refer to EPIC Intake/Output [...] GI Jacoby Tovar MD Surgery, R2 Diagnoses: [id number] Crohn disease This assessment and plan was [...] myself provided conscious sedation. OSBALDO GARCIA MD [facility] [address] [place] [address] I spent 35 min in critical care (not including procedures) [facility] DEPARTMENT: MICU, [facility]- [id number] Place of Service: - Date of Service: 03/29/2012 CSN: [id number] Modifiers:GC Resident Involved: yes Suggested CPT: 45105 Critical Care, Initial 30-74 minutes Carlton Godwin [...] day of transfer to MICU (1 05/29/11), [facility] informed us that according to [...] 0659 03/29/12 07 - 03/30/12 0659 Shift 9700-4490 0999-1607 4413-5679 Daily Total 4189-9206 9057-6610 1299-4989 Daily Total I N T A K E P.O. 1750 2525 4275 I.V. 934 4501 190 8393 Shift Total 934 3740 3450 8124 O U T P U T Urine 1075 2950 1875 5900 Urine 1075 2950 1875 5900 Other 575 288 638 4192 Measured Stool Output 350 425 775 Stool/Urine Mix 575 575 Shift Total 1650 3300 2300 7250 NET -685 652 5008 874 Intake/Output Summary (since admission) at 03/12/12 1910 Last data filed at 03/29/12 0547 Gross for the last 17 days Intake 49780 ml Output 99476 ml Net since Admission -28495 ml Physical Exam: General Appearance: middle aged [...] Carlton Betancourt DO PGY-1 Internal Medicine Pager [phone] Debi Yepez MD - 03/11 4:31 PM [...] questions. Debi Oconnor MD GI/Hepatology Fellow Pager: [phone] INTERVAL HISTORY: Episode of melena last night then bright red blood per rectum this morning Hemodynamically stable but decrease in hct from 30 to 24 Transferred to Count Includes [facility] INPATIENT MEDICATIONS acetaminophen (aka TYLENOL) tablet [...] NOTE Author: OSBALDO GARCIA MD Attending Physician: sObaldo Garcia MD Assessment and Plan: I personally [...] patient in the past. OSBALDO GARCIA MD [facility] [id number] [address] I spent 35 min in critical care (not including procedures) EPIC DEPARTMENT: [facility], [facility]- [id number] Place of Service: Date of Service: 03/28/2012 CSN: [id number] Modifiers:GC Resident Involved: yes Suggested CPT: 46578 Critical Care, Initial 30-74 minutes Carlton Godwin [...] 03/28/12 0659 03/28/12699 - 03/29/12 0659 Shift 0678-4851 0463-2916 2072-1670 Daily Total 4033-3378 5046-2881 3331-9713 Daily Total I N T A K E P.O. 240 300 540 I.V. 404 404 934 934 Blood 1300 1300 Shift Total 053 395 2114 2244 934 934 O U T P [...] Gross for the last 16 days Intake 80669 ml Output 55877 ml Net since Admission -98839 ml Physical Exam: General Appearance: tearful middle [...] Carlton Betancourt DO PGY-1 Internal Medicine Pager [phone] Andrew Shah MD - 6:52 AM PST [...] Sukumar Zuniga DO Internal Medicine PGY-2 Pg [phone] Davonte De La Rosa MD - 03/27/2012 [...] noted any additions above. KIRITYann RUST MD [facility] DEPARTMENT: [id number]- [facility] Faculty PPV Place of Service:- Inpatient Date of Service: 03/27/2012 CSN: [id number] Suggested Modifier: Resident Involved: Yes Suggested CPT: 25289- Subsequent, Detailed/high complex, 35 min Marely Mccann [...] was discussed and formulated with gastroenterology at [facility], Dr. Hennessy. Please call with any questions. Debi Oconnor MD GI/Hepatology Fellow Pager: [phone] INTERVAL HISTORY: Imaging reviewed with radiology; too [...] Dung Victor - 2 11:30 AM PST RESIDENCY DIRECTOR NOTE: Visited with Patient. 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 Textile Machinery Sales Representative team will follow as needed. Chaplain Dung Riley M.Div., [facility] [id number] Pager #[phone]; #[phone] Xin De La Rosa MD - 7:31 [...] J Gastroenterol. 2004 Jan;39(10):948-54. PubMed PMID: [id number]. Consulted Heme for further studies on platelet [...] an. ---- Joaquin Rivera, MS4 Pager # [phone] signed by iXn Rust MD at 03/27/2012 10:49 PM Xin [...] noted any additions above. KIRIT RUST MD [facility] DEPARTMENT: [id number]- 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 Raphael Norman MD Internal Medicine, PGY-2 [id number] Xin De La Rosa MD - 03/25/2012 [...] persists - not larger Resident spoke with interventional radiology technologist who spoke with staff - [...] taking more PO if still low ask pre parole counseling aide to see Hypophosphatemia (03/14/2012) Assessment: rechecked and [...] noted any additions above. KIRIT MD YOCASTA [facility] DEPARTMENT: [id number]- [facility] Faculty PPV Place of Service:- Inpatient Date of Service: 03/25/2012 CSN: [id number] Suggested Modifier: Resident Involved: Yes Suggested CPT: 77261- Subsequent, Detailed/high complex, 35 min oaquin Rivera [...] J Gastroenterol. 2004 Jan;39(10):948- 54. PubMed PMID: [id number]. Consulted [facility] for further studies on platelet inhibitor [...] an. ---- Joaquin Rivera, VIVIANA Pager # [phone] Ajay De La Rosa MD - 03/24/2012 [...] drainage of abscess and coordination of care [facility] radiology reviewing perirectal abscess imaging, options for intervention and need for rep eat imagin, also with GI on plan. I personally interviewed the patient, performed the gunter elements of the physical examinatio n, and personally formulated the assessment and plan with the resident. I agree with the MS4 s documentation and have noted any additions above. KIRIT MD YOCASTA [facility] DEPARTMENT: [id number]- [facility] Faculty PPV Place of Service:- Inpatient Date of Service: 03/24/2012 CSN: [id number] Suggested Modifier: Resident Involved: Yes Suggested CPT: 82572- Subsequent, Detailed/high complex, 35 min Davonte De [...] J Gastroenterol. 2004 Jan;39(10):948- 54. PubMed PMID: [id number]. Consulted Heme for further studies on platelet [...] an. ---- Joaquin Nicole, MS4 Pager # [phone] Ajay De La Rosa MD - 03/23/2012 [...] noted any additions above. KIRIT MD YOCASTA [facility] DEPARTMENT: [id number]- [facility] Faculty PPV Place of Service:- Inpatient Date of Service: 03/23/2012 CSN: [id number] Suggested Modifier: GC Resident Involved: Yes Suggested CPT: 78030- Subsequent, Detailed/high complex, 35 min Davonte De [...] 25 mL, 25 mL, Intravenous, PRN, Bibiana Admas PA-C glucagon (aka GLUCAGEN) injection 1 mg, [...] to be done today JERI DIAZ MD [facility] [address] [place] [address] Xin De La Rosa MD - 03/23/2012 [...] state: J Gastroenterol. 2004 Jan;39(10):948-54. PubMed PMID: [id number]. Consulted Heme for further studies on platelet [...] an. ---- Joaquin Rivera, VIVIANA Pager # [phone] Ajay De La Rosa MD - 03/22/2012 [...] noted any additions above. KIRITYann RUST MD [facility] DEPARTMENT: [id number]- [facility] Faculty PPV Place of Service:- Inpatient Date of Service: 03/22/2012 CSN: [id number] Suggested Modifier: Resident Involved: Yes Suggested CPT: 78095- Subsequent, Detailed/high complex, 35 min ox, Jeri [...] carotid duplex ordered today JERI DIAZ MD [facility] [address] [place], [place] [id number] Xin De La Rosa MD - 03/22/2012 [...] PTT in mixing 1:1 Neg cardiolipin, neg ejdz-Y-yhxhzvqvbjnu Legionella Agg Urine pending Cultures: BLOOD CULTURE [...] barber: J Gastroenterol. 2004 Jan;39(10):948-54. PubMed PMID: [id number]. - Consult Heme for further studies on [...] an. ---- Joaquin Rivera, MS4 Pager # [phone] Ajay De La Rosa MD - 03/21/2012 [...] 142/76 | Pulse 106[sinus tach per television cabinet finisher[ | Temp 37.7 C (99.9 F) | [...] -- also coordination of care with pharmD. [facility] DEPARTMENT: [id number]- [facility] Faculty PPV Place of Service:- Inpatient Date of Service: 03/21/2012 CSN: [id number] Suggested Modifier: GC Resident Involved: Yes Suggested CPT: 72465- Subsequent, Detailed/high complex, 35 min Jennifer Tolentino [...] y.o. Female with multiple complex medical problems; [facility] Vascular Surge ry consulted due [...] as new baseline Ok to discharge per [facility] Vascular Surgeons once ambulating and medical issues are stable. Will continue to follow while in patient. [facility] Vascular Surgery Clinic, [address], phone number [phone] Please schedule followup appointment within 2-3 weeks of surgery for wound check. Dr. Sukumar Salgado, [facility] Vascular Surgery Attending. MERT OLIVA [facility] VASCULAR SURGERY [facility] [place], [place] [id number] haMoses hill MD - 03/21/2012 6:55 AM [...] w ill need to establish care with thread spinner so that further treatment options can be [...] assessment and plan. Moses Anthony MD Neurology Pediatric Psychiatrist Pager [phone] oaquin Rivera - 02/2012 6:55 AM PST [...] with a history of Chron's, vaginal fis ajy, and chronic perirectal fistulas who presents from [...] an. ---- Joaquin Goodwinidad, MS4 Pager # [phone] Xin De La Rosa M D - 03/20/2012 11:09 PM [facility]3 Internal Medicine Attending Interval note Hospital [...] noted any additions above. KIRITYann RUST MD [facility] DEPARTMENT: [id number]- [facility] Faculty PPV Place of Service:- Inpatient Date of Service: 03/20/2012 CSN: [id number] Suggested Modifier: GC Resident Involved: Yes Suggested CPT: 14650- Subsequent, Detailed/high complex, 35 min oeller, Jennifer Hill [facility] - 03/20/2012 3:36 PM PST . [...] y.o. Female with multiple complex medical problems; [facility] Vascular Surge ry consulted due [...] new blood-flow baseline Ok to discharge per [facility] Vascular Surgeons once ambulating and medical issues are stable. Will continue to follow while in patient. [facility] Vascular Surgery Clinic, [address], phone number [phone] Please schedule followup appointment within 2-3 weeks of surgery for wound check. Dr. Sukumar Salgado, [facility] Vascular Surgery Attending. MERT OLIVA [facility] VASCULAR SURGERY [address] [place] [facility] [place] [address] icci, Raphael Saab MD - 03/20/2012 7:58 [...] plan. Raphael Norman MD Internal Medicine, PGY-2 75897 oaquin Rivera - 7:58 AM PST Medicine [...] an. ---- Joaquin Rivera, MS4 Pager # [phone] atson, Juma Ferrer MD - 03/19/2012 3:35 [...] tablet 5 mg, 5 mg, Oral, QPM, Golria Anthony MD, 5 mg at 03/18/12 21 [...] ambulating Attending of record is Dr. Salgado. JUAM CARRINGTON MD [facility] [address] [place] [address] Chary Moore M D - 03/19/2012 9:14 [...] note from 03/14 for details. Therefore the nvrk-aqkw-jozxo plan givens s been to allow her [...] plan. Lovenox bridge to be covered by [facility]. 9) Occlusive thrombus 10) Hypoalbuminemia 11) Hypophosphatemia 12) TIA (transient ischemic attack) - with PFO 13) PFO (patent foramen ovale) - plan is for lifelong coumadin. No additional benefit from device closure per CLOSURE I trial. Chary Doherty MD Chief Resident, Internal Medicine Pager: [phone] [facility] DEPARTMENT: Hosp- [id number] Place of Service: - Date of Service: 03/19/2012 CSN: [id number] Modifiers:GC Resident Involved: Yes Suggested CPT: 18133 Subsequent Visit Detailed/High complexity 35 min I [...] will need to establish c are with thread spinner so that further treatment options can be [...] assessment and plan. Moses Anthony MD Neurology Pediatric Psychiatrist Pager [phone] tJose Antonio prado MD - 03/18/2012 1:01 [...] outpt GI, plans to establish care in [place], perhaps Dr. Harri. Transitioning to PO meds, [...] Doherty MD Chief Resident, Internal Medicine Pager: [phone] [facility] DEPARTMENT: Hosp- [id number] Place of Service: - Date of Service: 03/18/2012 CSN: [id number] Modifiers:AKHIL Resident Involved: Yes Suggested CPT: 69489 Subsequent Visit Exp Prob Foc/Mod Complexity 25 [...] Date 03/18/12 07 - 03/19/12 0659 Shift 1640-4261 4667-4881 3289-7044 24 Hour Total I N T A K E P.O. 620 620 I.V. 20 20 40 Shift Total 640 20 660 O U T P U T Urine 675 100 775 Other 400 400 Shift Total 959 303 8865 Weight (kg) 74.1 74.1 74.1 74.1 General: Awake, alert female in mild distress. Calm and interactive. HEENT: NCAT, EOMI, non-icteric sclera. Lungs: Bibasilar crackles in posterior lung albreto. Heart: RRR, no m/r/g. Abd: Soft, ND, [...] refusing). Will need to establish care with thread spinner so that further treatment options can be [...] in MS4 note. Moses Anthony MD Neurology Pediatric Psychiatrist Pager [phone] signed by Moses Asher MD at 03/18/2012 [...] an. ---- Nuñez Nicole, MS4 Pager # [phone] Chary Moore MD - 03/17/2012 8:39 PM [...] refusing). Will need to establish care with thread spinner so this can be discussed as outpt [...] Doherty MD Chief Resident, Internal Medicine Pager: [phone] [facility] DEPARTMENT: Hosp- [id number] Place of Service: - Date of Service: 03/17/2012 CSN: [id number] Modifiers: Resident Involved: Yes Suggested CPT: 62767 Subsequent Visit Detailed/High complexity 35 min I [...] at end of case. MIRELA SALGADO MD [facility] [address] [id number] [place] [address] ham, Gloria Lawson MD - 1 05/18/2011 [...] until she's therapeutic with her coumadin and [facility] has agreed to provide discounted [...] y Gloria Anthony MD Neurology PGY1 Pager: [phone] oaquin Rivera - 10/2011 7:19 AM PST [...] an. ---- Joaquin Rivera, MS4 Pager # [phone] Chary Moore MD - 03/16/2012 12:56 PM [...] Doherty MD Chief Resident, Internal Medicine Pager: [phone] [facility] DEPARTMENT: Hosp- [id number] Place of Service: Date of Service: 03/16/2012 CSN: [id number] Modifiers:GC Resident Involved: Yes Suggested CPT: 16022 Subsequent Visit Exp Prob Foc/Mod Complexity 25 min and 77881 Subseque nt Visit Detailed/High complexity 35 min [...] DNR/DNI Gloria Anthony MD Neurology PGY-1 Pager [phone] The patient was seen and discussed with the attending of record, Chary Doherty MD, who agrees with my assessment and plan. itze, Chary Ferrer MD - 03/15/2012 9:30 PM PSTMEDICINE ATTENDING PROGRESS NOTE ADMIT DATE: 03/12/2012 7:10 PM TODAY'S DATE: 03/15/2012 (HOSPITAL DAY 3) Attending Physician: Chary oDherty MD I personally interviewed the patient, performed [...] Doherty MD Chief Resident, Internal Medicine Pager: [phone] [facility] DEPARTMENT: Hosp- [id number] Place of Service: - Date of Service: 03/15/2012 CSN: [id number] Modifiers:GC Resident Involved: Yes Suggested CPT: 50297 Subsequent Visit Detailed/High complexity 35 min Henrique [...] plan. Dariela Santoyo MD Internal Medicine PGY-3 [id number] aryl Arteaga MD - 08/2011 7:18 PM PSTHematology Attending Consult Note: I saw and examined Ms. Hartley with the Hematology Fellow, Dr. Anthony Camejo and Medical [place] the 5A Medicine unit. I participated in the gunter components of today's [facility] pital visit including review of the history, [...] re Daryl Arteaga MD, PhD Hematology Oncology [facility] DEPARTMENT: [id number]- HEM FACULTY [facility] Place of Service: - Inpatient Date of Service: 03/15/2012 Modifiers: GC - Resident Involved Suggested CPT: 34475 - Subsequent, Detailed/High complex 35 min Anthony [...] anticoagulation clinic f/u closely; our clinic at [facility] cannot provide any suppli es [...] as above. MD Hematology/Oncology Fellow Pager # [phone] signed by Daryl Arteaga MD at 03/15/2012 [...] with any questions. Bigg Robles, R1 Pager: [phone] INTERVAL HISTORY: - NAEO - VSS, AF [...] wishes to pro ceed. Mirela Samano M.D. [facility] Vascular Surgery [address] [place] [address] Email: [email or web address] rlamin, Sandoval Barrett MD - 03/15/2012 9:30 [...] off to day. Jacoby Tovar MD Surgery [id number] signed by Sandoval Tovar MD at 03/15/2012 [...] monitor Gloria Anthony MD Neurology PGY1 Pager [phone] Daryl Singleton MD - 07/2011 4:57 PM PSTHematology Attending Consult Note: I saw and examined Ms. Hartley with the Hematology Fellow, Dr. Anthony Camejo in the [address] [place] [address] unit. I participated in the gunter components [...] re Daryl Arteaga MD, PhD Hematology Oncology [facility] DEPARTMENT: [id number]- HEM FACULTY [facility] Place of Service: - Inpatient Date of Service: 03/14/2012 Modifiers: GC - Resident Involved Suggested CPT: 30813 - Subsequent, Detailed/High complex 35 min Anthony [...] as above. MD Hematology/Oncology Fellow Pager # [phone] signed by Daryl Arteaga MD at 03/14/2012 [...] really for treatment Recommendations communicated with 3 internal sales engineer. We will continue to follow. This plan was discussed and formulated with gastroenterology at [facility], Dr. Casiano. Please call with any questions. Bigg Margaret, R1 Pager: [phone] Attending Attestation: I personally interviewed the patient, performed the relevant elements of the physical exami [facility] [place], and formulated the assessment and plan with [...] She may follow-up wit h her local thread spinner or may follow up with me at [facility] if she wishes to consider di fferent evaluation or treatment. Gopal Casiano MD Computer Recycling Workerbi analyst Department of Gastroenterology INTERVAL HISTORY: - NAEO [...] IMAGING Reviewed outside imaging with radiologist at [facility] and CT abd and pelvis [...] Intake/Output Summary (Last 24 hours) at 03/14/12 0949 Last data filed at 03/14/12 0501 Gross [...] Becca Moncada MD General Surgery, R2 Pager: [phone] [facility] Staff I saw and evaluated the patient. I agree with the findings and the plan of care as jannie hair in the resident s note. Left foot warm and well perfused. Patient pain-free. Will repe at CTA to see if there has been any thrombus progression. No urgent need for surgery on left leg at this point. Mirela Samano M.D. [facility] Vascular Surgery [address] [place] [address], [address] [address] Email: [email or web address] oody, Irene Vega MD - 03/14/2012 3:52 [...] at OSH. 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 She also had leukocytosis to 45 with a left shift, anemia, and thrombocytosis (platelets to 759). Her abdominal exam was not acute and she remained hemodynamically stable. Transferre d to [facility] for possible thrombectomy, initiated heparin [...] were obscured by overlying bowel gas. The [id number] left external iliac arteries appear patent with [...] transient arterial occlusion. Reported CT findings at [facility] are also concerning for diffuse intra-abdominal [...] CARLOS A SALCIDO MD R2, General Surgery [facility] 03/13/2012 1:20 PM Current Facility-Administered Medications Medication [...] LastCBG Intervention: Notified MD (Comment);Medication given (03/12/12 5456) CBC with diff last 72 hours (or [...] Becca Moncada MD General Surgery, R2 Pager: [phone] Vascular Staff I saw and evaluated the [...] at a later time. Mirela Samano M.D. [facility] Vascular Surgery [address] [facility], [address] [address] Email: [email or web address] Richie Goodman MD - 06/2011 11:15 AM PSTI was present and rounded with the CONFERENCE AND EVENT ORGANISER today. I interviewed and examined the patient. I reviewed the history, as documented today. I agree with the CONFERENCE AND EVENT ORGANISER's assessmen t and plan. Pt is stable [...] visceral and aortic thrombus transfer red from [facility] last night with concerns for ischemic bowel. [...] and celiac arteries who was transferred to [facility] for management o f vascular disease and possible bowel ischemia. No evidence of bowel ischemia, bowel thicken ing likely Crohn's flare. 1. Crohn's flare: GI consult. Consider transfer to medicine for crohn's management with va ndular following 2. Multivessel occlusions/thrombii: vascular surgery following. [...] general medicine service. Jf Wiseman MD FACS wet sander Division of Trauma, Critical Care, and Acute Care Surgery [id number] documented in this e ncounter Plan of [...] | + + + + + | [facility] | [address] | [place] [address] | | | JANELL SHARP | BERTRAM [...] [facility] | [address] | [place] [address] | | | SERVICES, CORE | PARK [...] | + + + + + | [facility] | [address] | [place] [address] | | | SERVICES, JANELL | BERTRAM [...] [facility] | [address] | [place] [address] | | | SERVICES, CORE | PARK [...] | + + + + + | [facility] | [address] | [place] [address] | | | SERVICES, CORE | BERTRAM [...] | + + + + + | [facility] | [address] | [place] [address] | | | SERVICES, CORE | PARK [...] | + + + + + | [facility] | [address] | [place] [address] | | | SERVICES, CORE | PARK [...] [facility] | [address] | [place] [address] | | | SERVICES, CORE | PARK [...] [facility] | [address] | [place] [address] | | | SERVICES, CORE | PARK [...] [facility] | [address] | [place] [address] | | | SERVICES, CORE | PARK [...] [facility] | [address] | [place] [address] | | | SERVICES, CORE | PARK [...] | + + + + + | [facility] | [address] | [place] [address] | | | SERVICES, CORE | BERTRAM [...] | + + + + + | [facility] | [address] | [place] [address] | | | JANELL SHARP | BERTRAM [...] + | [facility] - | [address] | [place] [address] | | | [place] | | | [...] + | [facility] | [address] | [place] [address] | | | [place] | | | [...] + | [facility] - | [address] | [place] [address] | | | [place] | | | | + + + [...] | + + + + + | [facility] | [address] | [place] [address] | | | SERVICES, CORE | BERTRAM [...] [facility] | [address] | [place] [address] | | | SERVICES, CORE | PARK [...] | + + + + + | [facility] | [address] | [place] [address] | | | SERVICES, JANELL | BERTRAM [...] | + + + + + | [facility] | [address] | [place] [address] | | | SERVICES, CORE | BERTRAM [...] + + + | [facility] | [address] | [place] [address] | | | PATHOLOGY | [address] [...] | + + + + + | [facility] | [address] | [place] [address] | | | SERVICES, CORE | BERTRAM [...] | + + + + + | [facility] | [address] | [place] [address] | | | SERVICES, CORE | BERTRAM [...] [facility] | [address] | [place], [place] | | | [facility] | [address] | [address] | | | TESTS | | | [...] LABORATORY | [address] | [place] [address] | | | SERVICES, CORE | BERTRAM [...] [facility] | [address] | [place] [address] | | | SERVICES, CORE | PARK [...] | + + + + + | [facility] | [address] | [place] [address] | | | SERVICES, CORE | PARK [...] [facility] | [address] | [place], [place] | | | [facility] | [address] | [address] | | | TESTS | | | [...] [facility] | [address] | [place] [address] | | | SERVICES, CORE | BERTRAM [...] [facility] | [address] | [place] [address] | | | SERVICES, CORE | BERTRAM [...] [facility] | [address] | [place] [address] | | | SERVICES, CORE | BERTRAM [...] [facility] | [address] | [place] [address] | | | SERVICES, CORE | [address] | | | + + + + + X-RAY PORTABLE CHEST 1 VIEW (03/28/2012 6:28 AM PST) + + + + + + | Component | Value | Ref Range | Performed | Pathologist | | | | | At | Signature | + + + + + + | X-RAY | STUDY: NM CHEST 1 VIEW | | | | [...] + + + + | PRODUCT | [id number] | | [facility] | | | UNIT [...] + + + + | BLOOD | [id number] | | [facility] | | | PRODUCT [...] + + + | [facility] | [address] | [place] [address] | | | PATHOLOGY | [address] [...] + + + + | PRODUCT | [id number] | | [facility] | | | UNIT [...] + + + + | BLOOD | [id number] | | [facility] | | | PRODUCT [...] + + + | [facility] | [address] | [place] [address] | | | PATHOLOGY | [address] [...] (H) | 60 - 99 mg/dL | [facility] - | | | GLUCOSE, [...] [facility] | [address] | [place], [place] | | | [facility] | [address] | [address] | | | TESTS | | | [...] [facility] | [address] | [place] [address] | | | SERVICES, CORE | BERTRAM [...] view image for the detailed interpretation from [employer]. | CARDIOLOGY | + + + + + + + + | Performing | Address | City/State/Zipcode | Phone Number | | Organization | | | | + + + + + | [facility] | [address] | [place], [place] | | | CARDIOLOGY | [address] | [address] | | + + + + + [...] | + + + + + | [facility] | [address] | [place] [address] | | | SERVICES, CORE | BERTRAM [...] + + + + | PRODUCT | [id number] | | [facility] | | | UNIT [...] + + + + | BLOOD | 86688 | | [facility] | | | PRODUCT [...] DEPARTMENT OF | [address] | [place] [address] | | | PATHOLOGY | [address] [...] + + + + | PRODUCT | [id number] | | [facility] | | | UNIT [...] + + + + | BLOOD | 34080 | | [facility] | | | PRODUCT [...] + + + | [facility] | [address] | [place] [address] | | | PATHOLOGY | [address] [...] [facility] | [address] | [place] [address] | | | SERVICES, CORE | BERTRAM [...] [facility] | [address] | [place] [address] | | | SERVICES, CORE | PARK [...] [facility] | [address] | [place] [address] | | | SERVICES, CORE | PARK [...] [facility] | [address] | [place] [address] | | | SERVICES, CORE | PARK [...] [facility] | [address] | [place] [address] | | | SERVICES, | [address] [...] | + + + + + | [facility] | [address] | [place] [address] | | | SERVICES, | [address] [...] + + + + | PRODUCT | [id number] | | [facility] | | | UNIT [...] + + + + | BLOOD | 58032 | | [facility] | | | PRODUCT [...] DEPARTMENT OF | [address] | [place] [address] | | | PATHOLOGY | [address] [...] + + + + | PRODUCT | [id number] | | [facility] | | | UNIT [...] + + + + | BLOOD | 82219 | | [facility] | | | PRODUCT [...] + + + | [facility] | [address] | [place] [address] | | | PATHOLOGY | [address] [...] | + + + + + | [facility] | [address] | [place] [address] | | | SERVICES, CORE | BERTRAM [...] | + + + + + | [facility] | [address] | [place] [address] | | | SERVICES, CORE | BERTRAM [...] [facility] | [address] | [place] [address] | | | SERVICES, CORE | BERTRAM [...] [facility] | [address] | [place] [address] | | | SERVICES, CORE | PARK [...] | + + + + + | [facility] | [address] | [place] [address] | | | SERVICES, CORE | BERTRAM [...] | + + + + + | [facility] | [address] | [place] [address] | | | SERVICES, CORE | BERTRAM [...] [facility] | [address] | [place] [address] | | | SERVICES, CORE | PARK [...] [facility] | [address] | [place] [address] | | | ARON, JANELL | BERTRAM [...] [facility] | [address] | [place] [address] | | | SERVICES, CORE | PARK [...] | + + + + + | [facility] | [address] | [place] [address] | | | ARON, JANELL | BERTRAM [...] | + + + + + | [facility] | [address] | [place] [address] | | | ARON, JANELL | BERTRAM [...] | + + + + + | [facility] | [address] | [place] [address] | | | SERVICES, CORE | BERTRAM [...] (H) | 0.90 - 1.20 INR | [facility] | | | | | [...] | + + + + + | [facility] | [address] | [place] [address] | | | SERVICES, CORE | PARK [...] | + + + + + | [facility] | [address] | [place] [address] | | | SERVICES, CORE | BERTRAM [...] [facility] | [address] | [place] [address] | | | SERVICES, CORE | PARK [...] oral, | | | | | | [id number] hrs | | | | | | [...] | | + +---------+ + + | [facility] DEPARTMENT OF | | | [...] [facility] | [address] | [place] [address] | | | SERVICES, CORE | BERTRAM [...] [facility] | [address] | [place] [address] | | | SERVICES, CORE | PARK [...] | + + + + + | [facility] | [address] | [place] [address] | | | SERVICES, CORE | PARK [...] [facility] | [address] | [place] [address] | | | SERVICES, CORE | PARK [...] | + + + + + | [facility] | [address] | [place] [address] | | | SERVICES, CORE | BERTRAM [...] | | | | Final | | [place] | | | | CULTURE RESULT:< 10,000 [...] | + + + + + | [place] [facility] - | [address] | [place] [address] | | | [place] | | | [...] [facility] | [address] | [place] [address] | | | SERVICES, CORE | BERTRAM [...] | + + + + + | [facility] | [address] | [place] [address] | | | SERVICES, CORE | BERTRAM [...] | + + + + + | [facility] | [address] | [place] [address] | | | SERVICES, CORE | BERTRAM [...] | + + + + + | [facility] | [address] | [place] [address] | | | JANELL SHARP | BERTRAM [...] view image for the detailed interpretation from [employer] results. | CARDIOLOGY | + + + + + + + + | Performing | Address | City/State/Zipcode | Phone Number | | Organization | | | | + + + + + | [facility] | [address] | [place], [place] | | | CARDIOLOGY | [address] | [address] | | + + + + + [...] | + + + + + | [facility] | [address] | [place] [address] | | | SERVICES, CORE | PARK [...] | + + + + + | [facility] | [address] | [place] [address] | | | SERVICES, CORE | PARK [...] | + + + + + | [facility] | [address] | [place] [address] | | | SERVICES, CORE | P[address] [...] [facility] | [address] | [place] [address] | | | SERVICES, CORE | PARK [...] | | | | | | Jase,[facility] | | | | | | [place], [place] [address] | | | | | | [phone] | | | | | | Kaitlin [...] [facility] | [address] | [place], [place] | | | [facility] | | [address] | | + + + + + [...] [facility] | [address] | [place] [address] | | | SERVICES, JANELL | [address]TRAM [...] | + + + + + | [facility] | [address] | [place] [address] | | | SERVICES, CORE | [address] | | | + + + + + CULTURE, BLOOD BACTI & YEAST ARUTR (03/22/2012 7:08 PM PST) + + + [...] | + + + + + | [facility] | [address] | [place] [address] | | | SERVICES, CORE | [address] | | | + + + + + 12 LEAD ECG (03/22/2012 2:58 PM PST) + + + + + + | Component | Value | Ref Range | Performed | Pathologist | | | | | At | Signature | + + + + + + | VENTRICULAR | 87 | BPM | [facility] | | | RATE [...] | | | | | XIN GARZON (3656) | | | | | | on 03/22/2012 4:25:06 PM | | | | + + + + + + + + | Specimen | + + | | + + + + + | Narrative | Performed At | + + + | Please click | [facility] | | on view image for the detailed interpretation from [employer] results. | CARDIOLOGY | + + + + + + + + | Performing | Address | City/State/Zipcode | Phone Number | | Organization | | | | + + + + + | [facility] | [address] | [place], [place] | | | CARDIOLOGY | [address] | [address] | | + + + + + [...] [facility] | [address] | [place], [place] | | | [facility] | [address] | [address] | | | TESTS | | | [...] [facility] | [address] | [place], [place] | | | [place], [facility]INT OF CARE | [address] | [address] | | | TESTS | | | [...] [facility] | [address] | [place] [id number] | | | SERVICES, CORE | BERTRAM [...] [facility] | [address] | [place] [address] | | | SERVICES, CORE | BERTRAM [...] [facility] | [address] | [place] [address] | | | SERVICES, CORE | [address] [...] [facility] | [address] | [place] [address] | | | SERVICES, CORE | BERTRAM [...] | + + + + + | [facility] | [address] | [place] [address] | | | SERVICES, CORE | BERTRAM [...] (H) | 60 - 99 mg/dL | [facility] - | | | GLUCOSE, [...] [facility] | [address] | [place], [place] | | | [facility] | [address] | [address] | | | TESTS | | | [...] | + + + + + | [facility] | [address] | [place] [address] | | | SERVICES, CORE | BERTRAM [...] (H) | 60 - 99 mg/dL | [facility] - | | | GLUCOSE, [...] [facility] | [address] | [place], [place] | | | [facility] [place] | [facility] | [address] | | | TESTS | | | [...] view image for the detailed interpretation from [employer] results. | CARDIOLOGY | + + + + + + + + | Performing | Address | City/State/Zipcode | Phone Number | | Organization | | | | + + + + + | [facility] | [address] | [place], [place] | | | CARDIOLOGY | [address] | [address] | | + + + + + [...] [facility] | [address] | [place], [place] | | | [facility] [place] | [address] | [address] | | | TESTS | | | [...] | + + + + + | [facility] | [address] | [place] [address] | | | SERVICES, CORE | B[address]TR[address] [...] | + + + + + | [facility] | [address] | [place] [address] | | | SERVICES, CORE | BERTRAM [...] | + + + + + | [facility] | [address] | [place] [address] | | | SERVICES, CORE | [address] [...] | + + + + + | [facility] | [address] | [place] [address] | | | SERVICES, JANELL | [address] [...] | + + + + + | [facility] | [address] | [place] [address] | | | JANELL SHARP | BERTRAM [...] GARCIA | | | | | | (1014) on 03/22/2012 | | | | | | 12:47:28 PM | | | | + + + + + + + + | Specimen | + + | | + + + + + | Narrative | Performed At | + + + | Please click | [facility] | | on view image for the detailed interpretation from [employer] results. | CARDIOLOGY | + + + + + + + + | Performing | Address | City/State/Zipcode | Phone Number | | Organization | | | | + + + + + | [facility] | [address] | [place], [place] | | | CARDIOLOGY | [facility] | [address] | | + + + + + [...] | + + + + + | [facility] | [address] | [place] [address] | | | SERVICES, CORE | [address]TR[address] [...] | + + + + + | [facility] | [address] | [place] [address] | | | JANELL SHARP | BERTRAM [...] 98 | 60 - 99 mg/dL | [facility] - | | | GLUCOSE, [...] [facility] | [address] | [place], [place] | | | [facility] | [address] | [address] | | | TESTS | | | [...] view image for the detailed interpretation from [employer] results. | CARDIOLOGY | + + + + + + + + | Performing | Address | City/State/Zipcode | Phone Number | | Organization | | | | + + + + + | [facility] | [address] | [place], [place] | | | CARDIOLOGY | [address] | [address] | | + + + + + [...] [facility] | [address] | [place], [place] | | | [facility] [place] | [address] | [address] | | | TESTS | | | [...] [facility] | [address] | [place], [place] | | | [facility] | [address] | [address] | | | TESTS | | | | + + + + + X-RAY PORTABLE CHEST 1 VIEW (03/20/2012 10:13 AM PST) + + + + + + | Component | Value | Ref Range | Performed | Pathologist | | | | | At | Signature | + + + + + + | X-RAY | STUDY: NM CHEST 1 VIEW | | | | [...] + + + + + | [facility] | [address] | [place] [address] | | | SERVICES, JANELL | BERTRAM [...] | + + + + + | [facility] | [address] | [place] [address] | | | ARON, [facility] | [address] | | | + [...] + + + + + | [facility] | [address] | [place] [address] | | | JANELL SHARP | BERTRAM [...] | + + + + + | [facility] | [address] | [place] [address] | | | SERVICES, CORE | [address]TRAM [...] (H) | 60 - 99 mg/dL | [facility] - | | | GLUCOSE, [...] + + + | [facility] | [address] | [place], [place] | | | [facility] | [address] | [address] | | | TESTS | | | [...] [facility] | [address] | [place], [place] | | | [facility] | [address] | [address] | | | TESTS | | | [...] | + + + + + | [facility] | [address] | [place] [address] | | | SERVICES, JANELL | BERTRAM [...] | + + + + + | [facility] | [address] | [place] [address] | | | SERVICES, CORE | [address]TRAM [...] (H) | 60 - 99 mg/dL | [facility] - | | | GLUCOSE, [...] + + + | [facility] | [address] | [place], [place] | | | [facility] | [address] | [address] | | | TESTS | | | [...] view image for the detailed interpretation from [employer] results. | CARDIOLOGY | + + + + + + + + | Performing | Address | City/State/Zipcode | Phone Number | | Organization | | | | + + + + + | [facility] | [address] | [place], [place] | | | CARDIOLOGY | [address] | [address] | | + + + + + [...] [facility] | [address] | [place], [place] | | | [facility] | [address] | [address] | | | TESTS | | | [...] (H) | 60 - 99 mg/dL | [facility] - | | | GLUCOSE, [...] [facility] | [address] | [place], [place] | | | [facility] | [address] | [address] | | | TESTS | | | [...] [facility] | [address] | [place] [address] | | | SERVICES, CORE | [address] [...] | + + + + + | [facility] | [address] | [place] [address] | | | SERVICES, CORE | [address] [...] | + + + + + | [facility] | [address] | [place] [address] | | | SERVICES, CORE | [address] [...] | + + + + + | [facility] | [address] | [place] [address] | | | SERVICES, CORE | [address]TR[address] [...] + | [facility] - | [address] | [place] [address] | | | [place] | | | [...] [facility] | [address] | [place] [address] | | | SERVICES, CORE | [address] [...] [facility] | [address] | [place] [address] | | | SERVICES, CORE | [address] [...] [facility] | [address] | [place] [address] | | | ARON, JANELL | BERTRAM [...] | + + + + + | [facility] | [address] | [place] [address] | | | SERVICES, CORE | [address] [...] | + + + + + | [facility] | [address] | [place] [address] | | | SERVICES, CORE [...] (H) | 60 - 99 mg/dL | [facility] - | | | GLUCOSE, [...] [facility]ERS | [address] | [place], [place] | | | [facility] | [address] | [address] | | | TESTS | | | [...] | + + + + + | [facility] | [address] | [place] [address] | | | SERVICES, JANELL | BERTRAM [...] - [facility] | [address] | [place], [place] | | | [facility] | [facility] | [address] | | | TESTS | | | [...] [facility] | [address] | [place] [address] | | | SERVICES, CORE | PARK [...] | + + + + + | [facility] | [address] | [place] [address] | | | SERVICES, CORE | BERTRAM [...] [facility] | [address] | [place], [place] | | | [facility] | [address] | [address] | | | TESTS | | | | + + + + + OPERATION RECORD (03/18/2012 11:22 AM PST) + + | Transcriptions | + + | Mirela Salgado MD - 03/18/2012 8:38 AM [facility] Date: 03/17/2012ttending | | Surgeon: Mirela Salgado M.D.Internet Ecommerce Specialist(s): Sandoval | | Bennett Galvez M.D.Preoperative Diagnosis(es):Embolus, [...] | | tolerated the procedure well.MIRELA SALGADO, [facility] / [id number] / | | [id number] / [id number] / T: 03/17/2012 | |was no pulse. [...] | | | |MIRELA SALGADO MD | |[place] pilot | | | |GLM / HS | |[id number] / [id number] / [id number] / | | | | | + [...] [facility] | [address] | [place] [address] | | | SERVICES, CORE | PARK [...] [facility] | [address] | [place] [address] | | | SERVICES, CORE | PARK [...] | + + + + + | [facility] | [address] | [place] [address] | | | SERVICES, CORE | PARK [...] | + + + + + | [facility] | [address] | [place] [address] | | | SERVICES, CORE | BERTRAM [...] | + + + + + | [facility] | [address] | [place] [address] | | | SERVICES, CORE | BERTRAM [...] | + + + + + | [facility] | [address] | [place] [address] | | | SERVICES, JANELL | BERTRAM [...] | + + + + + | [facility] | [address] | [place] [address] | | | SERVICES, JANELL | PARK [...] DAV[facility] | [address] | [place], [place] | | | [facility] | [facility] | [address] | | | TESTS | | | [...] (H) | 60 - 99 mg/dL | [facility] - | | | GLUCOSE, [...] MARILYN | [address] | [place], [place] | | | [facility] | [address] | [address] | | | TESTS | | | [...] [facility] | [address] | [place], [place] | | | [facility] | [facility] | [address] | | | TESTS | | | [...] | + + + + + | [facility] | [address] | [place] [address] | | | SERVICES, CORE | PARK [...] | + + + + + | [facility] | [address] | [place] [address] | | | JANELL SHARP | PARK [...] | + + + + + | [facility] | [address] | [place] [address] | | | JANELL SHARP | BERTRAM [...] | + + + + + | [facility] | [address] | [place] [address] | | | SERVICES, CORE | BERTRAM [...] (H) | 60 - 99 mg/dL | [facility] - | | | GLUCOSE, [...] SANDERS | [address] | [place], [place] | | | [facility] [facility] | [address] | [address] | | | TESTS | | | [...] [facility] | [address] | [place] [address] | | | SERVICES, | [address] [...] [facility] | [address] | [place] [address] | | | SERVICES, | [address] [...] | + + + + + | [facility] | [address] | [place] [address] | | | SERVICES, CORE | BERTRAM [...] [facility] | [address] | [place], [place] | | | [facility] | [address] | [address] | | | TESTS | | | [...] | | + +---------+ + + | [facility] DEPARTMENT OF | | | [...] SANDERS | [address] | [place], [place] | | | [place] [facility] [place] | [address] | [address] | | | TESTS | | | [...] MARQU[facility] | [address] | [place], [place] | | | [facility]ARE | [address] | [address] | | | TESTS | | | [...] | + + + + + | [facility] | [address] | [place] [address] | | | JANELL SHARP | BERTRAM [...] (H) | 60 - 99 mg/dL | [facility] - | | | GLUCOSE, [...] MARILYN | [address] | [place], [place] | | | [facility] | [address] | [address] | | | TESTS | | | [...] | + + + + + | [facility] | [address] | [place] [address] | | | SERVICES, CORE | PARK [...] | + + + + + | [facility] | [address] | [place] [address] | | | SERVICES, CORE | BERTRAM [...] | + + + + + | [facility] | [address] | [place] [address] | | | SERVICES, CORE | PARK [...] [facility] | [address] | [place] [address] | | | SERVICES, CORE | PARK [...] - [facility] | [address] | [place], [place] | | | [facility] | [address] | [address] | | | TESTS | | | [...] SANDERS | [address] | [place], [place] | | | [place] [facility] [place] | [address] | [address] | | | TESTS | | | [...] | | | | | | the V[employer] (Internap) system. | | | | | | [...] | | + +---------+ + + | [facility] DEPARTMENT OF | | | [...] | | | | | | [place] | | | | + + + [...] SANDERS | [address] | [place], [place] | | | [place] [facility] [place] | [address] | [address] | | | TESTS | | | [...] MARQUAM | [address] | [place], [place] | | | [place] [facility] [place] | [address] | [address] | | | TESTS | | | [...] [facility] | [address] | [place] [address] | | | SERVICES, SPECIAL | PARK [...] [facility] | [address] | [place] [address] | | | SERVICES, SPECIAL | PARK [...] | + + + + + | [facility] | [address] | [place] [address] | | | SERVICES, SPECIAL | BERTRAM [...] [facility] | [address] | [place] [address] | | | SERVICES, SPECIAL | PARK [...] [facility] | [address] | [place] [address] | | | SERVICES, CORE | PARK [...] [facility] | [address] | [place] [address] | | | SERVICES, CORE | PARK [...] | + + + + + | [facility] | [address] | [place] [address] | | | SERVICES, CORE | PARK [...] [facility] | [address] | [place] [address] | | | JANELL SHARP | BERTRAM [...] MARILYN | [address] | [place], [place] | | | [facility] | [facility] | [address] | | | TESTS | | | [...] | + + + + + | [facility] | [address] | [place] [address] | | | JANELL SHARP | BERTRAM [...] (H) | 60 - 99 mg/dL | [facility] - | | | GLUCOSE, [...] MARQUAM | [address] | [place], [place] | | | [facility] [place] | [facility] | [address] | | | TESTS | | | [...] SANDERS | [address] | [place], [place] | | | [facility] | [address] | [address] | | | TESTS | | | [...] Davina | | | | | | Gauilar | | | | + + + + + + + + | Specimen | + + | | + + + +---------+ + + | Performing | Address | City/State/Zipcode | Phone Number | | Organization | | | | + +---------+ + + | [facility] DE[facility]MENT OF | | | [...] SANDERS | [address] | [place], [place] | | | [facility] | [address] | [address] | | | TESTS | | | [...] + + + + | PRODUCT | [id number] | | [facility] | | | UNIT [...] + + + + | BLOOD | [address] | | [facility] | | | PRODUCT [...] DEPARTMENT OF | [address] | [place] [address] | | | PATHOLOGY | [address] [...] + + + + | PRODUCT | [id number] | | [facility] | | | UNIT [...] + + + + | BLOOD | 96[address] | | [facility] | | | PRODUCT [...] + + + | [facility] | [address] | [place] [address] | | | PATHOLOGY | [address] [...] | + + + + + | [facility] | [address] | [place] [address] | | | SERVICES, CORE [...] [facility] | [address] | [place], [place] | | | [facility] | [address] | [address] | | | TESTS | | | [...] - MARILYN | [address] | [place], [place] | | | [place] [facility] | [address] | [address] | | | TESTS | | | [...] [facility] | [address] | [place] [address] | | | ARON, JANELL | PARK [...] [facility] | [address] | [place] [address] | | | SERVICES, CORE | PARK [...] | + + + + + | [facility] | [address] | [place] [address] | | | ARON, CORE | PARK [...] | | If supplementation does | | [place] | | | | not correct consider [...] if | | | | | | [id number] >400: | | | | | | [...] + | [facility] | [address] | [place] [address] | | | [place] | | | | + + + [...] [facility] | [address] | [place] [address] | | | SERVICES, CORE | BERTRAM [...] | + + + + + | [facility] | [address] | [place] [address] | | | SERVICES, CORE | BERTRAM [...] | + + + + + | [facility] | [address] | [place] [address] | | | ARON, JANELL | BERTRAM [...] - | | | | | | [place] | | + + + + + + + + | Specimen | + + | Blood - Blood | + + + + + + + | Performing | Address | City/State/Zipcode | Phone Number | | Organization | | | | + + + + + | [employer] [facility] | [address] | [place] [address] | | | [place] | | | [...] SANDERS | [address] | [place], [place] | | | [facility] [place] | [facility] | [address] | | | TESTS | | | [...] | + + + + + | [facility] | [address] | [place] [address] | | | JANELL SHARP | BERTRAM [...] + | [facility] | [address] | [place] [address] | | | JANELL SHARP | BERTRAM [...] [facility] | [address] | [place], [place] | | | [facility] | [address] | [address] | | | TESTS | | | [...] | + + + + + | [facility] | [address] | [place] [address] | | | SERVICES, CORE | BERTRAM [...] gas. | | | | | | Krnlhj-vj-oeunnq left | | | | | | [...] | | + +---------+ + + | [facility] DEPARTMENT OF | | | | | RADIOLOGY | | | | + +---------+ + + [facility] ARTER DUPLEX LOWER EXTREMITY [...] SANDERS | [address] | [place], [place] | | | [facility]ARE | [address] | [address] | | | TESTS | | | [...] % | [facility] | | | | [address] [employer],[address] | | REG UNIV | | | | Jarett Card, [facility] | | PTH - INTFC | | | | [address] | | | | | | [phone].MovableInklab. | | | | | | Kaitlin [...] [facility] | [address] | [place], [place] | | | UNIV PTH - [facility] | | [address] | | + + + + + [...] [facility] | [address] | [place] [address] | | | SERVICES, CORE | BERTRAM [...] | + + + + + | [facility] | [address] | [place] [address] | | | SERVICES, CORE | PARK [...] (H) | 60 - 99 mg/dL | [facility] - | | | GLUCOSE, [...] SANDERS | [address] | [place], [place] | | | [facility] | [address] | [address] | | | TESTS | | | [...] | + + + + + | [facility] | [address] | [place] [address] | | | JANELL SHARP | BERTRAM [...] | + + + + + | [facility] | [address] | [place] [address] | | | JANELL SHARP | BERTRAM [...] (H) | 60 - 99 mg/dL | [facility] - | | | GLUCOSE, [...] MARILYN | [address] | [place], [place] | | | [facility] | [address] | [address] | | | TESTS | | | [...] [facility] | [address] | [place] [address] | | | SERVICES, CORE | PARK [...] [facility] | [address] | [place] [address] | | | SERVICES, CORE | PARK [...] [facility] | [address] | [place] [address] | | | SERVICES, CORE | PARK [...] | + + + + + | [facility] | [address] | [place] [address] | | | SERVICES, CORE | BERTRAM [...] [facility] | [address] | [place] [address] | | | SERVICES, CORE | PARK [...] | + + + + + | [facility] | [address] | [place] [address] | | | SERVICES, CORE | PARK [...] | | | | Final | | [facility]] | | | | CULTURE RESULT:No growth [...] + | [facility] - | [address] | [place] [address] | | | [place] | | | [...] | | | Final CULTURE | | [place] | | | | RESULT:Salmonella, | | [...] + | [facility] - | [address] | [place] [address] | | | [place] | | | [...] | + + + + + | [facility] | [address] | [place] [address] | | | SERVICES, CORE | BERTRAM [...] SANDERS | [address] | [place], [place] | | | [facility] | [address] | [address] | | | TESTS | | | [...] view image for the detailed interpretation from [employer] results. | CARDIOLOGY | + + + + + + + + | Performing | Address | City/State/Zipcode | Phone Number | | Organization | | | | + + + + + | [facility] | [address] | [place], [place] | | | CARDIOLOGY | [address] | [address] | | + + + + + [...] [facility] | [address] | [place] [address] | | | SERVICES, CORE | [address] | | | + + + + + CULTURE, BLOOD BACTI & YEAST [facility] (03/12/2012 9:50 PM PST) + [...] | + + + + + | [facility] | [address] | [place] [address] | | | SERVICES, CORE | BERTRAM [...] [facility] | [address] | [place] [address] | | | SERVICES, CORE | PARK [...] [facility] | [address] | [place] [address] | | | ARON, JANELL | BERTRAM [...] SANDERS | [address] | [place], [place] | | | [facility] | [address] | [address] | | | TESTS | | | [...] [facility] | [address] | [place] [address] | | | SERVICES, CORE | BERTRAM [...] [facility] | [address] | [place] [address] | | | SERVICES, CORE | PARK [...] [facility] | [address] | [place] [address] | | | SERVICES, | [address] [...] | + + + + + | [facility] | [address] | [place] [address] | | | ARON, | BERTRAM GRANT [...] | + + + + + | [facility] | [address] | [place] [address] | | | SERVICES, JANELL | PARK [...] [facility] | [address] | [place] [address] | | | SERVICES, CORE | PARK [...] | + + + + + | [facility] | [address] | [place] [address] | | | SERVICES, JANELL | BERTRAM [...]
--- OUTSIDE RECORDS SUMMARY | ~2019-11-05 | XMS | Encounter Summary ---
Demographics + + + | Address | [address] | | | [place] [address] | + + + | Home Phone [...] Providers + +------+ + | Care Flat Knitter Helper Name | Role | Phone | + +------+ + | No, Physician | PCP | Unavailable | + +------+ + Encounter Details +--------+ + + + + | Date | Type | Department | Care Team | Description | +--------+ + + + + | 04/12/ | Orders Only | [facility] | [place], | | | 2018 | | GENERAL SURGERY [address] | [address] | | | | | [address] | [address] | | | | | [place], [place] | [place] [address] | | | | | [address] | [phone] | | | | | [phone] | | | +--------+ + + + [...]
--- OUTSIDE RECORDS SUMMARY | ~2019-11-05 | XMS | Encounter Summary ---
Demographics + + + | Address | [address] | | | [place] [address] | + + + | Home Phone | | + + + | Preferred Language | Unknown | + + + | Marital Status | | + + + | Church Affiliation | Unknown | + + + | Race | Unknown | + + + | Ethnic Group | Unknown | + + + Author + + + | Author | [facility] | | | and [place] | + + + | Organization | [facility] | | [...] Team Providers + +------+ + | Care Equipment Tester Name | Role | Phone | + +------+ + PCP | Unavailable | + +------+ + Encounter Details +--------+ + + + + | Date | Type | Department | Care Team | Description | +--------+ + + + + | 10/16/ | Hospital | [facility] | Enrique Bocanegra, | Rectovaginal fistula | | 2016 | Encounter | [facility] | [address] | | | | | [address] | [address] | | | | | [place], [place] | [place] [address] | | | | | [address] | [phone] | | | | | [phone] | | | +--------+ + + + [...] by Osvaldo Dial RN at 10/17/152009 Author: Osvlado Dial RN Service: Anesthesiology Author Type: Registered Cirilo se Filed: 10/17/153 Date of Service: 10/17/152009 Status: Signed Baling Press Operator: Osvaldo Dial RN (Registered Nurse) Patient [...] 10/17/151537 Date of Service: 10/17/151537 Status: Signed Baling Press Operator: Enrique Bocanegra MD (Physician) Chief Complaint & [...] anal vag inal fistula are very rare. 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 Procedure: SPLENECTOMY; Surgeon: Bogdan Moser DO; Location: [facility] MAIN OR; S ervice: General; Laterality: N/A; Esophagogastroduodenoscopy Left 08/06/2015 Procedure: ESOPHAGOGASTRODUODENOSCOPY; Surgeon: Sheng Rios MD; Locati on: [facility] ENDOSCOPY; Service: Gastroenterology; Laterality: Left; Social History [...] 10/17/151846 Date of Service: 10/17/151825 Status: Signed Baling Press Operator: Enrique Bocanegra MD (Physician) [facility] Service: Colon & Rectal Surgery Operative Note Pre-operative Diagnosis: Crohn's disease, perianal and anovaginal fistula. Post-operative Diagnosis: Same Procedure(s): Exam under anesthesia, seton placement. Rectal mucosa biopsy Surgeon: Enrique Bocanegra MD Last Waxer(s): none Anesthesia: General endotrachial anesthesia and Local [...] sent that to pathology. Condition: Stable Enrique oBcanegra MD 10/17/2015 documented in this encounter Plan [...] interpretation and technical preparation was performed by [employer] | | | [facility], [address], | | | [place] [address] (Imaging System Administrator: Raphael Yee M.D.; IA#: | | | [id number]). Diagnostician: Honey Mcduffie MD Pathologist | | [...]
--- OUTSIDE RECORDS SUMMARY | ~2019-11-05 | XMS | Encounter Summary ---
Demographics + + + | Address | [address] | | | [place] [address] | + + + | Home Phone [...] [place], [place] | | | | | [address] | | + + + + + | Cami Sawyer | ECON | Unknown | | + + + + + Care Team Providers + +------+ + | Care Water Systems Designer Name | Role | Phone [...] | | fistula | Kristen Rubio | [facility] | | | | | Procedures | [place], [place] | [facility] and | | | | | CONSULT TO | [address] | Healing, | | | | | GI PROCEDURE | Phone: | [address] | | | | | UNIT: | [phone] | [place], [place] | | | | | FLEXIBLE | Fax: | [address] | | | | | SIGMOID[facility]COP | [phone] | Phone: | | | | | [place] | | [phone] | | | | | SIGMOIDOSCOP | | Fax: | | | | | Y,BIOPSY | | [phone] | +--------+--------+ + + + + Reason [...] tests | | 2016 | | [place] [address] | [address] [facility] | | | | | [address] [facility] | Kristen Rubio [place], | | | | | [facility] and | [place] [address] | | | | | [facility] | [phone] | | | | | [place], [place] | | | | | | [address] | | | | | | [phone] | | | +--------+ + + + [...]
--- OUTSIDE RECORDS SUMMARY | ~2019-11-05 | XMS | Encounter Summary ---
Demographics + + + | Address | [address] | | | [place] [address] | + + + | Home Phone | | + + + | Preferred Language | Unknown | + + + | Marital Status | | + + + | Anabaptist Affiliation | Unknown | + + + | Race | Unknown | + + + | Ethnic Group | Unknown | + + + Author + + + | Author | [facility] | | | and [place] | + + + | Organization | [facility] | | [...] Team Providers + +------+ + | Care Cut In Station Operator Name | Role | Phone [...] Unknown | | | | | ANA PAULANAHOMYBONNIE | [phone] | | | | | [address] | | | | | | [phone] | | | +--------+ + + + [...] | Procedure Note | + + | JudsonTez Sagar - 11/23/2018 2:13 AM PDT This is a non-reportable procedure | | without a radiologist report and isused for image storage only | + + documented in this encounter Visit Diagnoses + + | Diagnosis | + + | Pain Generalized pain | + + documented in this encounter"
--- OUTSIDE RECORDS SUMMARY | ~2019-11-05 | XMS | Encounter Summary ---
Demographics + + + | Address | [address] | | | [place] [address] | + + + | Home Phone [...] | [facility] | | | and [place] | + + + | Organization | [facility] | | | and [...] Providers + +------+ + | Care Workforce Analyst Name | Role | Phone | [...] | | | | ANA PAULANAHOMYBONNIE | [phone] | | | | | [address] | | | | | | [phone] | | | +--------+ + + + [...]
--- OUTSIDE RECORDS SUMMARY | ~2019-11-05 | XMS | Encounter Summary ---
Demographics + + + | Address | [address] | | | [place] [address] | + + + | Home Phone | | + + + | Preferred Language | Unknown | + + + | Marital Status | | + + + | Cheondoism Affiliation | Unknown | + + + | Race | Unknown | + + + | Ethnic Group | Unknown | + + + Author + + + | Author | [facility] | | | and [place] | + + + | Organization | [facility] | | | [...] Team Providers + +------+ + | Care Replanting Machine Crewman Name | Role | Phone | + +------+ + PCP | Unavailable | + +------+ + Encounter Details +--------+ + + + + | Date | Type | Department | Care Team | Description | +--------+ + + + + | 03/07/ | Hospital | [facility] | SahraCynthiaay Nena, | Rectovaginal | | 2017 - | Encounter | [facility] [address] | MD Gaby LOREDO | fistula; Crohn's | | | | [address] | [address] | disease of large | | 03/12/ | | [place], [place] | [place] [address] | intestine with | | 2017 | | [address] | [phone] | complication (HCC) | | | | [phone] | | | +--------+ + + + [...] Date of Service: 03/12/17 0746 Status: Signed Finishing Pan Operator: JENARO Mathew (Nurse Practitioner) [facility] Service: Colon & Rectal Surgery Discharge [...] Humirabeing seen by Dr. She CLAYTON in [place]. She previously underwent a small bowel resection [...] [place] [facility] [place]. [place] went to [place] due to the trip being a hardship [...] [facility]ON PLACEMENT; Surgeon: Enrique Morris MD; Location: [facility] OR; Service: General; Laterality: N/A; APPENDECTOMY CHOLECYSTECTOMY COLOSTOMY N/A 03/07/2017 Procedure: COLOSTOMY; Surgeon: Enrique Morris MD; Location: [facility] OR; Service: G eneral; Laterality: N/A; ESOPHAGOGASTRODUODENOSCOPY Left 08/06/2015 Procedure: ESOPHAGOGASTRODUODENOSCOPY; Surgeon: Sheng Rios MD; Location: [facility]; Service: Gastroenterology; Laterality: Left; ESOPHAGOGASTRODUODENOSCOPY N/A 04/21/2014 Procedure: ESOPHAGOGASTRODUODENOSCOPY; Surgeon: Bony Petty MD; Location: [facility] BED[facility] PROCEDURE; Service: Gastroenterology; Laterality: N/A; HYSTERECTOMY LAPAROTOMY N/A 04/23/2014 Procedure: EXPLORATION - LAPAROTOMY; Surgeon: Bogdan Moser DO; Location: [facility] MAIN O R; Service: General; Laterality: N/A; LYSIS OF ADHESIONS PORTACATH PLACEMENT Left SMALL INTESTINE SURGERY SPLENECTOMY, TOTAL N/A 04/23/2014 Procedure: SPLENECTOMY; Surgeon: Bogdan Moser DO; Location: [facility] MA[facility] OR; Service: General; Laterality: N/A; [...] Change midline dressing and ostomy appliance with ostomy/parts product analyst prior to discharge Discharge home Disposition: Home Condition: Stable Code Status: Full Code No discharge procedures on file. Follow up: JENARO Mathew [address] [place] [id number] Schedule an appointment as soon as possible [...] 1422 Date of Service: 03/12/171414 Status: Signed Finishing Pan Operator: Catracho Almaguer RN (Registered Nurse) [facility] Service: Ostomy Care Consult Note Hospital [...] 03/12/17637 Date of Service: 03/12/17637 Status: Signed Finishing Pan Operator: Lashawn Valdez RN (Registered Nurse) Dr mckeon in room to examine patient. onver roshan Transaction, Provider Unknown - 03/12/2017 6:19 AM PST Progress Notes by Lashawn Valdez RN at 03/12/17618 Author: Lashawn Valdez RN Service: (none) Author Type: Registered Nurse Filed: 03/12/17625 Date of Service: 03/12/17618 Status: Signed Finishing Pan Operator: Lashawn Valdez RN (Registered Nurse) Patient is [...] Date of Service: 03/11/17 163 Status: Signed Finishing Pan Operator: Catracho Almaguer RN (Registered Nurse) [facility] Service: Ostomy Care Consult Note Hospital [...] Notes by Brooke Hawkins RD at 03/11/17 2740 Author: Brooke Hawkins RD Service: (none) Author Type: Registered Dietitian Filed: 03/11/17 4833 Date of Service: 03/11/171449 Status: Signed Finishing Pan Operator: Brooke Hawkins RD (Registered Dietitian) 03/11/17 1414 [...] Date of Service: 03/11/17 1306 Status: Signed Finishing Pan Operator: Maryellen Salter RN (Registered Nurse) Discharge plan- patient will be able to return home with family when medically ready. SAL bennett de an ostomy appt for her on 03/16/17 at 0915. Information added to AVS. MARYELLEN SALTER RN Case Management [phone] onver roshan Transaction, Provider Unknown - 03/11/2017 12:28 PM PST Therapy Progress Note by Moses Pathak PTA at 03/11/17 1228 Author: Moses Pathak PTA Service: (none) Author Type: Help Desk Administrator Filed: 03/11/17 1232 Date of Service: 03/11/17 1228 Status: Signed Finishing Pan Operator: Moses Pathak PTA (Help Desk Administrator) 03/11/17 1228 PT Last Visit PT Received [...] Date of Service: 03/11/17 1127 Status: Signed Finishing Pan Operator: Dornia Jang () Referral from RN to assess [...] Date of Service: 03/11/17 1050 Status: Signed Finishing Pan Operator: Catracho Almaguer RN (Registered Nurse) Ostomy nurse [...] 03/11/17947 Date of Service: 03/11/17944 Status: Signed Finishing Pan Operator: Don Nava MD (Physician) [facility] Service: Hospitalist Progress Note Pt: Smita Willnigham AGE/SEX: 61 y.o. female ROOM: [address] [place] [address] : 1955 PCP: No primary care provider [...] Intake/Output Summary (Last 24 hours) at 03/11/17 0993 Last data filed at 03/11/17 0302 Gross [...] MD, FACP 03/11/2017 9:45 AM Dictation software, myVBO, used which may contain error for similar sounding words even af ter review. Personal communication requested for any clarification. Portions of this chart may have been copied from previous notes for continuity of care purp ose Jordon Hauser ARNP - 03/11/2017 7:45 AM PST . Progress Notes by JENARO Mathew at 03/11/17 4932 Author: JENARO Mathew Service: General Surgery Author Type: Nurse Jennifer enciso Filed: 03/11/17 1348 Date of Service: 03/11/1777 Status: Signed Finishing Pan Operator: JENARO Mathew (Nurse Practitioner) [facility] Service: Colon & Rectal Surgery Progress [...] Date of Service: 03/11/17 0100 Status: Signed Finishing Pan Operator: Lashawn Valdez RN (Registered Nurse) Report given [...] Date of Service: 03/10/17 1520 Status: Signed Finishing Pan Operator: Aniceto Chen PT (Physical Therapist) 03/10/17 1520 PT Last Visit PT Received On 03/10/17 Reason for Treatment Other (comment) (s/p end colostomy) Requires PT Follow Up Awaiting tx order Follow up PT Only? No Focus for Next Treatment Transfer Technique PT Eval/Reassessment Date 03/10/17 Assistance Required 1 person Food Technology Teacher Needed No Precautions Other Precautions new colostomy [...] Date of Service: 03/10/17 1520 Status: Signed Finishing Pan Operator: Aniceto Chen PT (Physical Therapist) 03/10/17 1520 PT Last Visit PT Received On 03/10/17 Reason for Treatment Other (comment) (s/p end colostomy) Requires PT Follow Up Awaiting tx order Follow up PT Only? No Focus for Next Treatment Transfer Technique PT Eval/Reassessment Date 03/10/17 Assistance Required 1 person Food Technology Teacher Needed No Home Environment Type of Home Home one story Home Exterior Layout 1-3 steps (1 entry step) Home Equipment Walker front wheeled Prior Function Level of [place] Independent with functional mobility;Independent with ADLs Falls in Past Year No Lives With Spouse Employment Retired for age Comments pt is a 61 y/o female s/p lysis of adhesions and end colostomy. She lives in [facility] with her spouse in a single story [...] Note by Catracho Almaguer RN at 03/10/17 1993 Author: Catracho Almaguer RN Service: Wound/Ostomy Care Author Type: Registered Nurse Filed: 03/10/171316 Date of Service: 03/10/171312 Status: Signed Finishing Pan Operator: Catracho Almaguer RN (Registered Nurse) Ostomy nurse [...] Author: LEVI Borrego Service: (none) Author Type: Vacuum Evaporation Operator Filed: 03/10/171312 Date of Service: 03/10/171311 Status: Signed Finishing Pan Operator: LEVI Borrego (Vacuum Evaporation Operator) Discharge planning: Pt return home with outpt ostomy care. CM entered sticky note for Dr to sign referrral. Don Caraballo MD - 03/10/2017 10:41 AM PST Progress Notes by Don Nava MD at 03/10/17 1041 Author: Don Nava MD Service: Hospitalist Author Type: Physician Filed: 03/10/17 1101 Date of Service: 03/10/17 1041 Status: Signed Finishing Pan Operator: Don Nava MD (Physician) [facility] Service: Hospitalist Progress Note Pt: Smita Willingham AGE/SEX: 61 y.o. female ROOM: [address] [place] [address] : 1955 PCP: No primary care provider [...] MD, FACP 03/10/2017 10:41 AM Dictation software, myVBO, used which may contain error for similar [...] 03/10/17822 Date of Service: 03/10/17820 Status: Signed Finishing Pan Operator: JENARO Mathew (Nurse Practitioner) [facility] Service: Colon & Rectal Surgery Progress [...] eval and treat, please encourage ambulation -D/C RANGE EXAMINER, percocet and dilaudid for pain -General diet [...] 03/10/17505 Date of Service: 03/10/17502 Status: Signed Finishing Pan Operator: Angeles Tao RN (Registered Nurse) Pt very lethargic at start of shift with gradual improvement over the course of the night. Reports no pain when not moving but continues to push RANGE EXAMINER button often. Colostomy producing green liquid stool [...] 03/09/172007 Date of Service: 03/09/171956 Status: Signed Finishing Pan Operator: Gris Yee RN (Registered Nurse) Pt continues to c/o pain but respiration drop down to 4-9 with RANGE EXAMINER. RANGE EXAMINER is stopped. Pt is a waken to [...] Management by Linnea Lezama RN at 03/09/17 432 Author: Linnea Lezama RN Service: (none) Author Type: Registered Nurse Filed: 03/09/17 7992 Date of Service: 03/09/171619 Status: Signed Finishing Pan Operator: Linnea Lezama RN (Registered Nurse) 03/09/171619 Discharge [...] of Home Care Services Other (Comment) ([facility] for TPN) Mental Status Oriented;Other (comment) (Lethargic) Resources Financial concerns No Transportation issues No Patient/Family concerns No Prescription Plan Yes Name of Pharmacy [facility] in [place] Ostomy/Drains/Appliances Yes (New Colostomy) Anticipated Disposition Facility Type Home Met with pt who was oriented, but lethargic at this time, and discussed discharge planning, Pt is a 61 y.o., female who lives at home with her in [place], [place]. Pt is indepen dent with ADLs and mobility. Uses a cane and walker only as needed. Pt is currently set up with [facility] for TPN. Pt is on coumadin and follow up at the coumadin clinic in [place], [place]. Pt is not on home O2 [...] 03/09/17953 Date of Service: 03/09/17929 Status: Signed Finishing Pan Operator: Jaz Gonzáles PT (Physical Therapist) 03/09/17929 PT [...] 03/09/17927 Date of Service: 03/09/17915 Status: Signed Finishing Pan Operator: Don Nava MD (Physician) [facility] Service: Hospitalist Progress Note Pt: Smita [...] MD, FACP 03/09/2017 9:16 AM Dictation software, myVBO, used which may contain error for similar [...] 1057 Date of Service: 03/09/17908 Status: Signed Finishing Pan Operator: JENARO Mathew (Nurse Practitioner) [facility] Service: Colon & Rectal Surgery Progress Note Hospital Day: LOS: 2 days Post-Op Day: 1 Day Post-Op SUBJECTIVE Patient Summary: 61 y.o. female with Chron's and anovaginal fistulas SP colostomy Events Overnight: Pt complains of nausea this morning. Abdominal pain is controlled with RANGE EXAMINER. Colostomy noted with liquid stool and gas [...] Infusions lactated ringers 110 mL/hr at 03/09/17 4437 sodium chloride (IV) PRN Medications acetaminophen OR [...] to eval and treat, encourage ambulation -Continue RANGE EXAMINER for pain management -Continue CLD per ERAS [...] 0659 Date of Service: 03/09/1756 Status: Signed Finishing Pan Operator: Ruma Guerra RN (Registered Nurse) Notified Dr. Morris of HGB 6.9, orders to transfuse 1 unit of blood. Informed MD that pt continue to be lethargic throughout night but easily arousable. ETCO2 up to 65 at times. Re spiratory came up to do STAT ABG, results came back normal, pt compensated. Will possibly d /c RANGE EXAMINER this AM pending MD decision. Will inform day shift RN. onver roshan Transaction, Provider Unknown - 03/09/2017 4:57 AM PST Progress Notes by Ruma Guerra RN at 03/09/17 0457 Author: Ruma Guerra RN Service: (none) Author Type: Registered Nurse Filed: 03/09/17 0503 Date of Service: 03/09/177 Status: Signed Finishing Pan Operator: Ruma Guerra RN (Registered Nurse) Pt been lethargic but alert and oriented x 4 when pt asked orientation questions. Pt states "I feel like I am getting the flu, my body ache and I feel tired all the time" Vitals WNL, pain managed by RANGE EXAMINER pump. Incontinent of urine. Does not want to get out of bed. Will contin ue to monitor. onver roshan Transaction, Provider Unknown - 03/08/2017 11:43 AM PST Progress Notes by Chata Guadalupe RD at 03/08/17 1143 Author: Chata Guadalupe RD Service: (none) Author Type: Registered Dietitian Filed: 03/08/17 1144 Date of Service: 03/08/17 1143 Status: Signed Finishing Pan Operator: Chata Guadalupe RD (Registered Dietitian) 03/08/17 1124 [...] note reports pt was on "TPN from [facility] in [place]: 275 g Dextrose, 90 g AA, 40 [...] Estimated Energy Needs Total Energy Estimated Needs 0165-9980 kcal/day Method for Estimating Needs 25-30 kcal/kg [...] Follow up date 03/11/[address] [facility] ett, JENARO Ruvalcaba - 03/08/2017 11:25 AM PST Progress Notes by JENARO Mathew at 03/08/17 6045 Author: JENARO Mathew Service: General Surgery Author Type: Nurse Roycee fernie Filed: 03/08/17 8896 Date of Service: 03/08/171124 Status: Signed Finishing Pan Operator: JENARO Mathew (Nurse Practitioner) [facility] Service: Colon & Rectal Surgery Progress Note Hospital Day: LOS: 1 day Post-Op Day: 1 Day Post-Op SUBJECTIVE Patient Summary: 61 y.o. female with Chron's and anovaginal fistulas SP colostomy Events Overnight: Doing well. She complains of nausea this morning but better now. Abdominal pain is controlled with RANGE EXAMINER. postdoctoral fellow changed midline dressing, and ostomy appli ance. [...] recommendations -PT to eval and treat -Continue RANGE EXAMINER for pain management -Continue CLD per ERAS [...] Date of Service: 03/08/17 1017 Status: Signed Finishing Pan Operator: Don Nava MD (Physician) [facility] Service: Hospitalist Progress Note Pt: Smita Willingham AGE/SEX: 61 y.o. 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 Thank you! Jazmyn Beard RN, BSN, CIC onver roshan Transaction, Provider Unknown - 03/07/2017 3:04 PM PST Progress Notes by Sofía Chamberlain RPH at 03/07/17 1503 Author: Sofía Chamberlain RPH Service: Pharmacy Author Type: Pharmacist Filed: 03/07/17 1504 Date of Service: 03/07/17 150 Status: Signed Finishing Pan Operator: Sofía Chamberlain RPH (Pharmacist) Clinical Pharmacy [...] Date of Service: 03/07/17 1413 Status: Signed Finishing Pan Operator: Vernell Tovar RN (Registered Nurse) Called anesthesia and informed of pt's frequent PVCs but pt denies chest pain or SOB. BP 14 8/69, heart rate 88-90 bpm. Per anesthesia, pt was also having PVCs in the OR. Anesthesia st ates that she will talk with Dr. Morris for an order for pt to be on cardiac catheterization technologist on t he floor. Vernell Tovar RN docume nted in this encounter H&P Notes Enrique Morris MD - 03/07/2017 10:03 AM PSTFormatting of this note might be different f rom the original. Interval H&P Note by Enrique Morris MD at 03/07/17 1003 Author: Enrique Morris MD Service: General Surgery Author Type: Physician Filed: 03/07/17 1004 Date of Service: 03/07/17 1003 Status: Signed Finishing Pan Operator: Enrique Morris MD (Physician) [facility] Service: Colon & Rectal Surgery Pre-Operative History [...] Author Type: Nurse Jennifer enciso Filed: 03/02/17 1915 Date of Service: 03/02/17 1213 Status: Signed Finishing Pan Operator: JENARO Mathew (Nurse Practitioner) Patient ID: Smita [...] [place] went [place] due to the [place] being a hardship [...] [facility]EMENT; Surgeon: Enrique Morris MD; Location: [facility] OR; Service: General; Laterality: N/A; APPENDECTOMY CHOLECYSTECTOMY ESOPHAGOGASTRODUODENOSCOPY Left 08/06/2015 Procedure: ESOPHAGOGASTRODUODENOSCOPY; Surgeon: Sheng Rios MD; Location: [facility] ENDOSCOPY; Service: Gastroenterology; Laterality: Left; ESOPHAGOGASTRODUODENOSCOPY N/A 04/21/2014 Procedure: ESOPHAGOGASTRODUODENOSCOPY; Surgeon: Bony Petty MD; Location: [facility] PROCEDURE; Service: Gastroenterology; Laterality: N/A; HYSTERECTOMY LAPAROTOMY N/A 04/23/2014 Procedure: EXPLORATION - LAPAROTOMY; Surgeon: Bogdan Moser DO; Location: [facility] OR; Service: General; Laterality: N/A; LYSIS OF ADHESIONS PORTACATH PLACEMENT Left SMALL INTESTINE SURGERY SPLENECTOMY, TOTAL N/A 04/23/2014 Procedure: SPLENECTOMY; Surgeon: Bogdan Moser DO; Location: [facility] MA[facility] OR; Service : General; Laterality: [...] Author Type: Nurse Jennifer enciso Filed: 03/02/17 1416 Date of Service: 03/02/171212 Status: Signed Finishing Pan Operator: JENARO Mathew (Nurse Practitioner) Patient ID: Smita [...] She [place]. [place] went to [place] due to the trip being a hardship [...] [facility]ON PLACEMENT; Surgeon: Enrique Morris MD; Location: [facility] OR; Service: General; Laterality: N/A; APPENDECTOMY CHOLECYSTECTOMY ESOPHAGOGASTRODUODENOSCOPY Left 08/06/2015 Procedure: ESOPHAGOGASTRODUODENOSCOPY; Surgeon: Sheng Rios MD; Location: [facility]; Service: Gastroenterology; Laterality: Left; ESOPHAGOGASTRODUODENOSCOPY N/A 04/21/2014 Procedure: ESOPHAGOGASTRODUODENOSCOPY; Surgeon: Bony Petty MD; Location: [facility] PROCEDURE; Service: Gastroenterology; Laterality: N/A; HYSTERECTOMY LAPAROTOMY N/A 04/23/2014 Procedure: EXPLORATION - LAPAROTOMY; Surgeon: Bogdan Moser DO; Location: [facility] OR; Service: General; Laterality: N/A; LYSIS OF ADHESIONS PORTACATH PLACEMENT Left SMALL INTESTINE SURGERY SPLENECTOMY, TOTAL N/A 04/23/2014 Procedure: SPLENECTOMY; Surgeon: Bogdan Moser DO; Location: [facility] OR; Service : General; Laterality: [...] Date of Service: 03/08/17 1239 Status: Addendum Finishing Pan Operator: Roberta Torres RN (Registered Nurse) Related Notes: Original Note by Roberta Torres RN (Registered Nurse) filed at 03/08/17 1 246 Consult Orders: 1. Ostomy Care Evaluation and Treat [[id number]] ordered by Enrique Morris MD at 03/07/17 1230 [facility] Service: Ostomy Care Consult Note Hospital Day: LOS: 1 day Post-Op Day: 1 Day Post-Op SUBJECTIVE Patient Summary: Patient s/p new end colostomy. Hx Crohn's. 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 Events Overnight: Patient on RANGE EXAMINER, remains very sleepy during teaching. Tolerating cl [...] ostomy appliance change and dressing change. New UNX rope plac e with thin hydrocolloid. 2-piece appliance placed next. Justen, [employer] SUPERVISOR would prefer no incisio nal or ostomy care done if possible until Tuesday to keep incision dressing intact. Forms pl aced on the front of the patient's chart for MD signature. New ostomy packet provided to gio herring, along with extra appliance for her to practice with. Starter kit ordered from [employer] ([id number]) postdoctoral fellow will return on for packet review and [...] 03/07/171857 Date of Service: 03/07/171848 Status: Signed Finishing Pan Operator: Veena Tobar MD (Physician) [facility] Service: Hospitalist Consult note Date of Admission: [...] in here rather than going t o [place] for a second opinion. 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 Chronic diarrhea COPD (chronic obstructive pulmonary disease) (HCC) Crohn's disease (HCC) Deep vein thrombosis (DVT) ([facility]) right leg and then travelled [...] chronic pain Pyelonephritis Recurrent aphthous ulcer Sepsis ([facility]) Past Surgical History Procedure Laterality Date ABDOMINAL SURGERY ANAL FISTULA [facility] PLACEMENT N/A 10/17/2015 Procedure: ANAL FISTULA SETON PLACEMENT; Surgeon: Enrique Morris MD; Location: [facility] OR; Service: General; Laterality: N/A; APPENDECTOMY CHOLECYSTECTOMY ESOPHAGOGASTRODUODENOSCOPY Left 08/06/2015 Procedure: ESOPHAGOGASTRODUODENOSCOPY; Surgeon: Sheng Rios MD; Location: [facility]; Service: Gastroenterology; Laterality: Left; ESOPHAGOGASTRODUODENOSCOPY N/A 04/21/2014 Procedure: ESOPHAGOGASTRODUODENOSCOPY; Surgeon: Bony Petty MD; Location: [facility] BED[facility]IDE PROCEDURE; Service: Gastroenterology; Laterality: N/A; HYSTERECTOMY LAPAROTOMY N/A 04/23/2014 Procedure: EXPLORATION - LAPAROTOMY; Surgeon: Bogdan Moser DO; Location: [facility] R; Service: General; Laterality: N/A; LYSIS OF ADHESIONS PORTACATH PLACEMENT Left SMALL INTESTINE SURGERY SPLENECTOMY, TOTAL N/A 04/23/2014 Procedure: SPLENECTOMY; Surgeon: Bogdan Moser DO; Location: [facility] OR; Service: General; Laterality: N/A; [...] ain. Patient remains on Dilaudid as needed RANGE EXAMINER as well as recommended by surgery because [...] Care by Rachel Adkins RN at 03/12/17 2012 Author: Rachel Adkins RN Service: (none) Author Type: Registered Nurse Filed: 03/12/17 4453 Date of Service: 03/12/171132 Status: Signed Finishing Pan Operator: Rachel Adkins RN (Registered Nurse) Daily Care [...] 0754 Date of Service: 03/12/17627 Status: Signed Finishing Pan Operator: Elizabeth Mckeon MD (Physician) Related Notes: Original [...] 03/11/172321 Date of Service: 03/11/172321 Status: Signed Finishing Pan Operator: Lashawn Valdez RN (Registered Nurse) Problem: Safety [...] 03/11/172321 Date of Service: 03/11/172321 Status: Signed Finishing Pan Operator: Lashawn Valdez RN (Registered Nurse) Problem: Pain [...] 03/11/171048 Date of Service: 03/11/171046 Status: Signed Finishing Pan Operator: Blanca Shaffer RN (Registered Nurse) Daily Care [...] PO pain meds. Dose given. Up in [facility] at this time watching television. Appears comfortable. lan o f Care - Conversion Transaction, Provider Unknown - 03/11/2017 12:09 AM PSTFormatting of mendy capellan note might be different from the original. Plan of Care by Lashawn Valdez RN at 03/11/178 Author: Lashawn Valdez RN Service: (none) Author Type: Registered Nurse Filed: 03/11/178 Date of Service: 03/11/178 Status: Signed Finishing Pan Operator: Lashawn Valdez RN (Registered Nurse) Problem: Pain [...] 03/10/171634 Date of Service: 03/10/171634 Status: Signed Finishing Pan Operator: Aniceto Chen PT (Physical Therapist) Problem: Mobility [...] 03/10/171114 Date of Service: 03/10/171114 Status: Signed Finishing Pan Operator: Tanika Woodruff RN (Registered Nurse) Daily Care Daily care needs are met Progressing Pain Patient's pain/discomfort is manageable Progressing Safety Patient will be injury free during hospitalization Progressing Pt transitioned to orals and IV push, RANGE EXAMINER discontinued. lan o f Care - Conversion Transaction, Provider Unknown - 03/10/2017 5:07 AM PSTFormatting of thi s note might be different from the original. Plan of Care by Angeles Tao RN at 03/10/17506 Author: Angeles Tao RN Service: (none) Author Type: Registered Nurse Filed: 03/10/17506 Date of Service: 03/10/17506 Status: Signed Finishing Pan Operator: Angeles Tao RN (Registered Nurse) Daily Care [...] 03/10/17243 Date of Service: 03/10/17243 Status: Signed Finishing Pan Operator: Angeles Tao RN (Registered Nurse) Daily Care [...] 03/09/17634 Date of Service: 03/09/17632 Status: Signed Finishing Pan Operator: Elizabeth Mckeon MD (Physician) Notified by RN h/hct dropped from 7.6/26.2 to 6.9/23.4 No overt bleeding sx. On RANGE EXAMINER , End tidal co2 is mid 60's [...] 03/09/17104 Date of Service: 03/09/1799 Status: Signed Finishing Pan Operator: Ruma Guerra RN (Registered Nurse) Safety Patient will be injury free during hospitalization Not Progressing Pt reports improvement with prescribed pain medication per RANGE EXAMINER pump lan o f Care - Conversion Transaction, Provider Unknown - 03/08/2017 10:15 AM PSTFormatting of thi s note might be different from the original. Plan of Care by Era Shaikh RN at 03/08/17 1015 Author: Era Shaikh RN Service: (none) Author Type: Registered Nurse Filed: 03/08/17 1016 Date of Service: 03/08/17 1015 Status: Signed Finishing Pan Operator: Era Shaikh RN (Registered Nurse) Pain Patient's pain/discomfort is manageable Progressing Pt continues to use RANGE EXAMINER appropriately. Will transition to oral meds once [...] 0330 Date of Service: 03/08/17328 Status: Signed Finishing Pan Operator: Ruma Guerra RN (Registered Nurse) Pain Patient's pain/discomfort is manageable Progressing Pt reports improvement with RANGE EXAMINER pump. Re-assess pain per protocol Safety Patient [...] 03/07/171712 Date of Service: 03/07/171712 Status: Signed Finishing Pan Operator: Becca Ahn RN (Registered Nurse) Patient will be injury free during hospitalization Progressing Call light in place. Instructed patient to use when assistance is needed. BECCA ANH RN 03/07/2017 5:13 PM p Not e - Enrique Morris MD - 03/07/2017 12:30 PM PSTFormatting of this note might be differen t from the original. Op Note by Enrique Morris MD at 03/07/17 1230 Author: Enrique Morris MD Service: General Surgery Author Type: Physician Filed: 03/07/17 2710 Date of Service: 03/07/170 Status: Signed Finishing Pan Operator: Enrique Morris MD (Physician) Related Notes: Original Note by Enrique Morris MD (Physician) filed at 03/07/17 1234 [facility] Service: Colon & Rectal Surgery Operative Note Pre-operative Diagnosis: Crohn's disease, severe anorectal involvement, intractible diarrh ea. Post-operative Diagnosis: Same Procedure(s): Lysis of adhesions and creation of an end colostomy. Surgeon: Enrique Morris MD Inspector Canvas Products(s): Severo EASON Anesthesia: General endotrachial anesthesia Estimated [...] Mar 12 2017 7:39AM Referring Provider Line: [phone] ID: | | | 109 | | [...] Mar 12 2017 7:39AM Referring Provider Line: [phone] ID: | | 109 | |Lungs/Pleura: Right [...] Mar 12 2017 7:39AM Referring Provider Line: [phone] ID: [id number] | + + External Lab: [...] | | | | | | at [facility], [address] | | | | | | [facility], | | | | | | [place] [address] | | | | | |2+ | | | | | |POIK | | | | | |3+ | | | | | |ANISO | | | | | |NORMAL PLT MORPH | | | | | |Testing performed at [facility], [address] [place] [address] | | | | | | | [...] | | | | | performed at [facility], [address] | | | | | | [address] [place], | | | | | | [place] [address] | | | | + + + [...] | | | | | performed at [facility], [address] | | | | | | [address] [place], | | | | | | [place] [address] | | | | + + [...] | | | | | | [place] [address] | | | | + + + [...] | | | | | performed at [facility], [address] | | | | | [address], | | | | | | [place] [address] | | | | + + + [...] | | | | | [place] [address] | | | | + + + [...] EXTERNAL | | | | performed at [facility], [address] | | LAB | | | | [address] [place], | | | | | | [place] [address] | | | | + + + [...] | | | | | | at [facility], [address] | | | | | | [place], | | | | | | [place] [address] | | | | + + + [...] | | | | | | at [facility], [address] | | | | | | [facility], | | | | | | [place] [address] | | | | | |3+ | | | | | |HYPO | | | | | |NORMAL PLT MORPH | | | | | |Testing performed at [facility], [address] [facility], [place] [address] | | | | | | | [...] EXTERNAL | | | | performed at [facility], [address] | | LAB | | | | [address], | | | | | | [place] [address] | | | | + + [...] EXTERNAL | | | | performed at [facility], [address] | | LAB | | | | [address], | | | | | | [place] [address] | | | | + + + [...] [place], | | | | | | [place] [address] | | | | + + + [...] | | | | | [place] [address] | | | | + + + [...] | | | | | performed at [facility] | | | | | | [facility];[place], [place] | | | | | | [address] | | | | + + + [...] | | | | | performed at [facility], [address] | | | | | | [facility], | | | | | | [place] [address] | | | | | |TARGET | | | | | |NORMAL PLT MORPH | | | | | |Testing performed at [facility], [address] [facility], [place] [address] | | | | | | | [...] | | | | | [place] [address] | | | | + + + [...] EXTERNAL | | | | performed at [facility], [address] | | LAB | | | | [address] [place], | | | | | | [place] [address] | | | | + + + [...] | | | | | | at [facility], [address] | | | | | | [facility], | | | | | | [place] [address] | | | | + + + [...] | | | | | | at [facility], [address] | | | | | | [facility], | | | | | | [place] [address] | | | | | |2+ | | | | | |TARGET | | | | | |NORMAL PLT MORPH | | | | | |Testing performed at [facility], [address] [place] [address] | | | | | | | [...] EXTERNAL | | | | performed at [facility], [address] | | LAB | | | | [place], | | | | | | [place] [address] | | | | + + + [...] EXTERNAL | | | | performed at [facility], [address] | | LAB | | | | [address], | | | | | | [place] [address] | | | | + + + [...] | | | | | | at [facility], [address] | | | | | | [address] [place], | | | | | | [place] [address] | | | | + + + [...] | | | | | performed at [facility] | | | | | | [facility];[place], [place] | | | | | | [address] | | | | + + + [...] | | | | | | at [facility];[address] [facility] | | | | | | Blvd;[place] [address] | | | | | |HYPO | | | | | |1+ | | | | | |TARGET | | | | | |NORMAL PLT MORPH | | | | | |Testing performed at [facility];[address] [place] [address];[place] [address] | | | | | | | [...] EXTERNAL | | | | performed at [facility];[address] | | LAB | | | | [address];[place] | | | | | | [address] | | | | + + + [...] EXTERNAL | | | | performed at [facility];[address] | | LAB | | | | [address];[place], [place] | | | | | | [address] | | | | + + + [...] | | | | | | at [facility];[address] [place] [address] | | | | | | [facility];[place] [address] | | | | + + + [...] | | | Fingerstick | performed at [facility];[address] | | LAB | | | | [address];[place], [place] | | | | | | [address] | | | | + + + [...] + + + | BB BAND | [id number] | | EXTERNAL | | | | | | LAB | | + + + + + + | UNIT NUMBER | [id number] | | EXTERNAL | | | | [...] | | | RESULT | performed at [facility];[address] | | LAB | | | | [address];[place] | | | | | | [address] | | | | + + + [...]
--- OUTSIDE RECORDS SUMMARY | ~2019-11-05 | XMS | Encounter Summary ---
Demographics + + + | Address | [address] | | | [place] [address] | + + + | Home Phone [...] [place], [place] | | | | | [address] | | + + + + + | Cami Sawyer | ECON | Unknown | | + + + + + Care Team Providers + +------+ + | Care Water Taxi Captain Name | Role | Phone | [...] | | 2015 | | Center at [facility] [address] | [address] [facility] | | | | | [address] [facility] | [facility], | | | | | [facility] and | [place] [address] | | | | | [place] [address] | [phone] | | | | | [place], [place] | | | | | | [address] | | | | | | [phone] | | | +--------+ + + + [...]
--- OUTSIDE RECORDS SUMMARY | ~2019-11-05 | XMS | Encounter Summary ---
Demographics + + + | Address | [address] | | | [place] [address] | + + + | Home Phone [...] Team Providers + +------+ + | Care Call Center Recruiter Name | Role | Phone | + +------+ + PCP | Unavailable | + +------+ + Encounter Details +--------+ + + + + | Date | Type | Department | Care Team | Description | +--------+ + + + + | 10/09/ | Hospital | [facility] | Conversion | | | 2016 | Encounter | CENTER PREAD[facility] | Transaction, | | | | | CLINIC [address] | Provider Unknown | | | | | [place], [place] | | | | | | [address] | (Fax) | | | | | [phone] | | | +--------+ + + + [...] 10/10/151905 Date of Service: 10/10/151904 Status: Signed Information Services Consultant: Michael Francis RN (Registered Nurse) HGB 9.2/Platelets [address] Adams. No further recommendations. onver roshan Transaction, Provider Unknown - 10/10/2015 5:15 PM PDT Pre-Procedure Instructions by Laine Bryant RN at 10/10/151714 Author: Laine Bryant RN Service: (none) Author Type: Registered Nurse Filed: 10/10/151715 Date of Service: 10/10/151714 Status: Signed Information Services Consultant: Laine Bryant RN (Registered Nurse) Called and spoke to Dr. Veliz anesthesia re: her chest xray. She states via telephone, may proceed with planned surgery onver roshan Transaction, Provider Unknown - 10/10/2015 2:40 PM PDT Pre-Procedure Instructions by Laine Bryant RN at 10/10/15 1440 Author: Laine Bryant RN Service: (none) Author Type: Registered Nurse Filed: 10/10/15 1449 Date of Service: 10/10/151439 Status: Addendum Information Services Consultant: Laine Bryant RN (Registered Nurse) Related Notes: Original Note by Laine Bryant RN (Registered Nurse) filed at 10/10/15 1441 AHA guidelines for non cardiac, non emergent surgery followed. METS score greater than 4. D oes not see a wiring mechanic. Denies any chest pain, SOB, or any [...] to [facility] clinic where she lives in [place], [place]. Pt beth he is present during [...] Conversion - 11/23/2018 9:20 PM PDT MACKENZIE [id number] years FemaleXR | | CHEST 2 VIEW [...] | | | | | | at [facility];[address] [place] [address] | | | | | | Blvd;[place] [address] | | | | + + + [...] [place] | | | | | | [address] | | | | + + +---- + + + | Non- | 4.44Comment: Testing | 3.7 0 - 5.10 | EXTERNAL | | | Red Blood | performed at [facility], [address] | M/u L | LAB | | | Cells | [facility] [place], | | | | | [place] | [place] [address] | | | | + + +---- + + + | Hemoglobin | 9.2 (L)Comment: Testing | 11. 3 - 15.5 | EXTERNAL | | | | performed at [facility], [address] | g/d L | LAB | | | | [place], | | | | | | [place] [address] | | | | + + +---- + + + | Hematocrit, | 33.1 (L)Comment: RESULT | 34. 0 - 46.0 % | EXTERNAL | | | POC | VERIFIEDTesting | | LAB | | | | performed at [facility], [address] | | | | | | [place], | | | | | | [place] [address] | | | | + + +---- + + + | MCV | 74.6 (L)Comment: Testing | 80. 0 - 100.0 fl | EXTERNAL | | | | performed at [facility], [address] | | LAB | | | | [address] [place], | | | | | | [place] [address] | | | | + + +---- + + + | MCH | 20.7 (L)Comment: Testing | 27. 0 - 34.0 pg | EXTERNAL | | | | performed at [facility], [address] | | LAB | | | | [address] [place], | | | | | | [place] [address] | | | | + + +---- + + + | MCHC | 27.7 (L)Comment: Testing | 32. 0 - 35.5 | EXTERNAL | | | | performed at [facility], [address] | g/d L | LAB | | | | [address] [place], | | | | | | [place] [address] | | | | + + +---- + + + | RDW-CV | 62.6 (H)Comment: Testing | 37 - 53 fl | EXTERNAL | | | | performed at [facility], [address] | | LAB | | | | [address] [place], | | | | | | [place] [address] | | | | + + +---- + + + | Platelet | 538 (H)Comment: Testing | 150 - 400 K/uL | EXTERNAL | | | Count | performed at [facility], [address] | | LAB | | | Plasma | [place] [place], | | | | | | [place] [address] | | | | + + +---- + + + | MPV | 7.9Comment: Testing | fl | EXTERNAL | | | | performed at [facility], [address] | | LAB | | | | [place], | | | | | | [place] [address] | | | | + + +---- + + + | Differentia | MANUALComment: Testing | | EXTERNAL | | | l Type | performed at [facility], [address] | | LAB | | | | [place] [place], | | | | | | [place] [address] | | | | + + +---- + + + | Nucleated | 4 (H)Comment: Testing | /10 0WBC | EXTERNAL | | | Red Blood | performed at [facility], [address] | | LAB | | | Cells | [place] [place], | | | | | | [place] [address] | | | | + + +---- + + + | Segmented | 59Comment: Testing | % | EXTERNAL | | | Neutrophils | performed at [facility], [address] | | LAB | | | Manual | [place] [place], | | | | | | [place] [address] | | | | + + +---- + + + | % Bands | 1Comment: Testing | % | EXTERNAL | | | | performed at [facility], [address] | | LAB | | | | [place] [place], | | | | | | [place] [address] | | | | + + +---- + + + | Lymphocytes | 33Comment: Testing | % | EXTERNAL | | | Manual | performed at [facility], [address] | | LAB | | | | [address] [place], | | | | | | [place] [address] | | | | + + +---- + + + | Monocytes | 7Comment: Testing | % | EXTERNAL | | | Manual | performed at [facility], [address] | | LAB | | | | [place] [place], | | | | | | [place] [address] | | | | + + +---- + + + | Absolute | 11.45 (H)Comment: | 1.9 0 - 7.40 | EXTERNAL | | | Neutrophils | Testing performed at | K/u L | LAB | | | | [facility], [address] | | | | | | [place] | | | | | | [address] | | | | + + +---- + + + | Bands | 0.19Comment: Testing | 0.0 0 - 0.20 | EXTERNAL | | | Manual | performed at [facility], [address] | K/u L | LAB | | | | [place] [place], | | | | | | [place] [address] | | | | + + +---- + + + | Absolute | 6.40 (H)Comment: Testing | 1.0 0 - 3.90 | EXTERNAL | | | Lymphocytes | performed at [facility], [address] | K/u L | LAB | | | | [address] [place], | | | | | | [place] [address] | | | | + + +---- + + + | Absolute | 1.36 (H)Comment: Testing | 0.0 0 - 0.80 | EXTERNAL | | | Monocytes | performed at [facility], [address] | K/u L | LAB | | | | [address], | | | | | | [place] [address] | | | | + + +---- + + + | Platelet | INCREASEDComment: | | EXTERNAL | | | Estimate | Testing performed at | | LAB | | | | [facility], [address] | | | | | | [place], [place] | | | | | | [address] | | | | + + +---- + + + | RBC | 2+Comment: | | EXTERNAL | | | Morphology | ANISO1+POIK1+POLY3+HYPO2 | | LAB | | | | +MICRO1+TARGETNORMAL PLT | | | | | | MORPHTesting performed | | | | | | at [facility], [address] | | | | | | [place], | | | | | | [place] [address] | | | | | |3+ | | | | | |HYPO | | | | | |2+ | | | | | |MICRO | | | | | |1+ | | | | | |TARGET | | | | | |NORMAL PLT MORPH | | | | | |Testing performed at [facility], [address] [place] [address] [place], [place] [address] | | | | | | | | | | + + +---- + + + | Differentia | SLIDE REFERRED TO | | EXTERNAL | | | l Comments | PATHOLOGIST FOR REVIEW | | LAB | | | | AND COMMENTComment: | | | | | | Testing performed at | | | | | | [facility], [address] [place] [address] | | | | | | [place] | | | | | | [address] | | | | + + +---- [...] LAB | | | | performed at [facility], [address] | | | | | | [place], | | | | | | [place] [address] | | | | + + + + + + | K | 4.7Comment: SPECIMEN | 3.5 - 4.9 | EXTERNAL | | | | SLIGHTLY | mmol/L | LAB | | | | HEMOLYZEDTesting | | | | | | performed at [facility], [address] | | | | | | [address], | | | | | | [place] [address] | | | | + + + + + + | Cl | 109Comment: Testing | 99 - 109 mmol/L | EXTERNAL | | | | performed at [facility], [address] | | LAB | | | | [address], | | | | | | [place] [address] | | | | + + + + + + | CO2 | 23Comment: Testing | 23 - 32 mmol/L | EXTERNAL | | | | performed at [facility], [address] | | LAB | | | | [address], | | | | | | [place] [address] | | | | + + + + + + | Anion Gap | 13Comment: Testing | 5 - 20 mmol/L | EXTERNAL | | | | performed at [facility], [address] | | LAB | | | | [address], | | | | | | [place] [address] | | | | + + + + + + | Glucose, | 89Comment: SPECIMEN | 65 - 99 mg/dL | EXTERNAL | | | Fasting | SLIGHTLY | | LAB | | | | HEMOLYZEDTesting | | | | | | performed at [facility], [address] | | | | | | [address], | | | | | | [place] [address] | | | | + + + + + + | BUN | 21Comment: Testing | 8 - 25 mg/dL | EXTERNAL | | | | performed at [facility], [address] | | LAB | | | | [address], | | | | | | [place] [address] | | | | + + + + + + | Creatinine | 0.9Comment: SPECIMEN | 0.50 - 1.00 | EXTERNAL | | | | SLIGHTLY | mg/dL | LAB | | | | HEMOLYZEDTesting | | | | | | performed at [facility], [address] | | | | | | [address], | | | | | | [place] [address] | | | | + + + + + + | BUN/Creatin | 23Comment: Testing | | EXTERNAL | | | ine Ratio | performed at [facility], [address] | | LAB | | | | [address], | | | | | | [place] [address] | | | | + + + + + + | Calcium | 9.0Comment: Testing | 8.5 - 10.5 | EXTERNAL | | | | performed at [facility], [address] | mg/dL | LAB | | | | [address], | | | | | | [place] [address] | | | | + + + [...] [place], | | | | | | [place] [address] | | | | + + + [...]
--- OUTSIDE RECORDS SUMMARY | ~2019-11-05 | XMS | Encounter Summary ---
Demographics + + + | Address | [address] | | | [place] [address] | + + + | Home Phone | | + + + | Preferred Language | Unknown | + + + | Marital Status | | + + + | Uatsdin Affiliation | NRP | + + + [...] [place], [place] | | | | | [address] | | + + + + + | Cami Sawyer | ECON | Unknown | | + + + + + Care Team Providers + +------+ + | Care Dye Beck Reel Operator Name | Role | Phone | [...] | | 2016 | | Center at [facility] [address] | [address] [facility] | [facility] | | | | [facility] | [facility] | | | | | [facility] and | [place] [address] | | | | | [place] [address] | [phone] | | | | | [place], [place] | | | | | | [address] | | | | | | [phone] | | | +--------+ + + + [...]
--- OUTSIDE RECORDS SUMMARY | ~2019-11-05 | XMS | Encounter Summary ---
Demographics + + + | Address | [address] | | | [place] [address] | + + + | Home Phone [...] + + + | Author | [facility] | + + + | Organization | [facility] | + + + | Address | Unknown | + + + | Phone | Unavailable | + + + Support + + + + + | Name | Relationship | Address | Phone | + + + + + | Kole Willingham | [place] | [address] | | | | | [place], [place] | | | | | [address] | | + + + + + | Cami Sawyer | ECON | Unknown | | + + + + + Care Team Providers + +------+ + | Care Nut Chopper Name | Role | Phone | + [...] [address] | | | | | | [place], [place] | | | | | | [address] | | | +--------+ + + + [...]
--- OUTSIDE RECORDS SUMMARY | ~2019-11-05 | XMS | Encounter Summary ---
Demographics + + + | Address | [address] | | | [place] [address] | + + + | Home Phone [...] [place], [place] | | | | | [address] | | + + + + + | Cami Sawyer | ECON | Unknown | | + + + + + Care Team Providers + +------+ + | Care Laser Specialist Name | Role | Phone | [...] | 2011 | Encounter | [address] [facility] | | | | | | [facility] | | | | | | [facility] | | | | | | [place], [place] | | | | | | [address] | | | | | | [phone] | | | +--------+ + + + [...]
--- OUTSIDE RECORDS SUMMARY | ~2019-11-05 | XMS | Encounter Summary ---
Demographics + + + | Address | [address] | | | [place] [address] | + + + | Home Phone | | + + + | Preferred Language | Unknown | + + + | Marital Status | | + + + | Christianity Affiliation | Unknown | + + + [...] Team Providers + +------+ + | Care Cloth Dyer Name | Role | Phone | + +------+ + PCP | Unavailable | + +------+ + Encounter Details +--------+ + + + + | Date | Type | Department | Care Team | Description | +--------+ + + + + | 03/01/ | Hospital | [facility] | Conversion | | | 2017 | Encounter | CENTER PREADMIT | Transaction, | | | | | CLINIC [address] | Provider Unknown | | | | | [place], [place] | | | | | | [address] | (Fax) | | | | | [phone] | | | +--------+ + + + [...] 03/01/171843 Date of Service: 03/01/171842 Status: Signed Commissioning Agent: Laine Bryant RN (Registered Nurse) Called and spoke to LUKASZ Adamson lead at ED and notified pt 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 Per [facility] policy She state s understanding onver roshan Transaction, Provider Unknown - 03/01/2017 6:33 PM PST Pre-Procedure Instructions by Laine Bryant RN at 03/01/171832 Author: Laine Bryant RN Service: (none) Author Type: Registered Nurse Filed: 03/01/171835 Date of Service: 03/01/171832 Status: Signed Commissioning Agent: Laine Bryant RN (Registered Nurse) Lab called and CBC tube was clotted and K+ 2.3 CL. Called and spoke to pt. Spouse and advis ed to go to [facility] ED main campus due to critically low K+. He states he will do. Called and gave report to LUKASZ Adamson lead in ED onver roshan Transaction, Provider Unknown - 03/01/2017 5:25 PM PST Pre-Procedure Instructions by Laine Bryant RN at 03/01/171724 Author: Laine Bryant RN Service: (none) Author Type: Registered Nurse Filed: 03/01/171729 Date of Service: 03/01/171724 Status: Signed Commissioning Agent: Laine Bryant RN (Registered Nurse) AHA guidelines for non cardiac, non emergent surgery followed. METS score greater than 4. D oes not see a manometer technician. Denies any chest pain, SOB, or [...] | | | Screen | performed at [facility];[address] | | LAB | | | [address];[place], [place] | | | | | | [address] | | | | + + + [...] | | | PCRAbnormal Testing performed at [facility];[address] [facility];[place] [address] | | + + + + +---------+ [...] | | | | | performed at [facility] | | | | | | [address];[place], [place] | | | | | | [address] | | | | + + + [...] | | | | | | at [facility];[address] | | | | [address];[place] [address] | | | | + + + [...] + + | Historically converted procedure from [facility] Epic environment | EXTERNAL LAB | + [...]
--- OUTSIDE RECORDS SUMMARY | ~2019-11-05 | XMS | Encounter Summary ---
Demographics + + + | Address | [address] | | | [place] [address] | + + + | Home Phone [...] Team Providers + +------+ + | Care Heating And Refrigeration Inspector Name | Role | Phone | [...] [address] | | | | | [place], [place] | [place] [address] | | | | | [address] | [phone] | | | | | [phone] | | | +--------+ + + + [...]
--- OUTSIDE RECORDS SUMMARY | ~2019-11-05 | XMS | Clinical Summary ---
Demographics + + + | Address | [address] | | | [place] [address] | + + + | Home Phone | | + + + | Preferred Language | Unknown | + + + | Marital Status | | + + + | Congregation Affiliation | Unknown | + + + | Race | Unknown | + + + | Ethnic Group | Unknown | + + + Author + + + | Author | [facility] | | | and [place] | + + + | Organization | [facility] | | | [...] Team Providers + +------+ + | Care Fisheries Inspector Name | Role | Phone | [...] Overview: Added automatically from request for surgery [id number] | + + + + + | [...] +--------+ +---------+--------+ | MEDICARE | MEDICA | [id number] | 04/11/19 | [phone] | | Medica | | | RE | | 13-Pre | 5 | | re | | | PART A | | sent | | | | | | AND B | | | | | | + +--------+ +--------+ +---------+--------+ | MEDICARE | MEDICA | [id number] | 04/11/19 | [phone] | | Medica | | | RE | | 13-Pre | 5 | | re | | | PART A | | sent | | | | | | AND B | | | | | | + +--------+ +--------+ +---------+--------+ | AARP | AARP | [id number] | 04/11/19 | [phone] | | Indemn [...] [place] | | | 8 (Home) | [address] | + +--------+ +--------+ + + | Smita Willingham | Person | Self | [birth year] | [address] | | | al/Fam | | 1956 | [phone] | [place], [place] | | | b[place] | | | 8 (Home) | [address] | + +--------+ +--------+ + + Advance Directives + + + + + | Type | Date Recorded | Patient | Explanation | | | | Industrial Sales Manager | | + + + + + | Power of | | | | | It Systems Administrator | | | | + + + + + | Advance | | | | | Directive | | | | + + + + +
--- OUTSIDE RECORDS SUMMARY | ~2019-11-05 | XMS | Encounter Summary ---
Demographics + + + | Address | [address] | | | [place] [address] | + + + | Home Phone [...] Providers + +------+ + | Care Nurse Practitioner Adult Name | Role | Phone | + +------+ + PCP | Unavailable | + +------+ + Encounter Details +--------+ + + + + | Date | Type | Department | Care Team | Description | +--------+ + + + + | 04/12/ | Hospital | [facility] | Dionicio, | Acute | | 2015 - | Encounter | [facility] | Bonnieroxane Jones, | gastroenteritis; PAF | | | | INTENSIVE CARE UNIT | MD Jaspal [address] | (paroxysmal atrial | | 04/23/ | | [address] | [place], | fibrillation) ([facility]); | | 2014 | | [place], [place] | [place] [address] | Sepsis([phone]) | | | | [address] | [phone] | (HCC); Acute | | | | [phone] | | systolic heart | | | | | | failure (HCC); Acute | | | | | | respiratory failure | | | | | | ([facility]); Aspiration | | | | | | pneumonia ([facility]); | | | | | | COPD (chronic | | | | | | obstructive | | | | | | pulmonary disease) | | | | | | ([facility]); Crohn's | | | | | | disease ([facility]); | | | | | | 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 Hospital [...] , recurrent UTI, admitted on 04/06/14 in [facility] for nausea, vomiting pre viously ingested [...] intubated on 04/12/13 and t ransfered from [facility] to [facility]. SEE assessment and plan for summary [...] Procedure: ESOPHAGOGASTRODUODENOSCOPY; Surgeon: Bony Petty MD; Location: [facility] BEDSIDE PROCEDURE; Service: Gastroenterology; Laterality: N/A; [...] 04/23/14 0528 Gross per 24 hour Intake 62056 ml Output 6589 ml Net 7458 ml [...] fibrillation) Stricture esophagus dilated with bougue 20 algerian 04/21/2014 ASSESSMENT & PLAN Intrabd bleeding Abd/spleen [...] output and hypotension with concerns of ac [place] renal failure and wanted additional info. Concern [...] on hemaglobin trending down. Called general surgeon flood control engineer. No interventional radiology. Pt taken to OR [...] products since that time. Surgical history from [facility] records Small bowel resection with 17 inches [...] Reported Idiopathic Cardiomyopathy: LVEF 30% by ECHO ([place]). Normal EF 60-65% ECHO at [facility] 04/20/14 Impression 1. Overall left ventricular [...] at home prior to this admission ad [facility]. This could have been due to her esophageal stricture which was just diagnosed 04/21/14 and treated with dilatation. Last sputum 04/19/14 Description SPUTUM GRAM STAIN GREATER THAN 10 WBCS/LPF GRAM STAIN LESS THAN 10 SEC/LPF GRAM STAIN NO ORGANISMS SEEN CULTURE 1+ CULTURE MATTHIEU ALBICANS A CULTURE Testing performed at [facility], [address] [place] [address] Resulting PCP negative. ID: B/L Aspiration pneumonia [...] compromised: On Remecade as out pt. From [facility] positive blood culture from 04/08/14 Staph capitis S to vanco, cipr, gent, levo, tigecycline I clinda. GI/NUTRITION: Crohn's disease. " for at least 40 yrs" As an outpt pt was on prilosec, remicade ( every 6 weeks via rolando cath) and prednisone 5mg po daily ( from 04/06/2014 H and P admission for n/v/d abd pain and dehydration [place], [place]) Unknown last colonoscopy. Unknown last EGD [...] nd and daughter to acquire records from [facility] where pt has had additional [...] 04/23/14219 Date of Service: 04/23/14219 Status: Signed Plastic Surgery Nurse: Yokasta Torrez RN (Registered Nurse) 5 Laps left in patient post op for packing. chTrice rowland - 04/23/2014 12:22 AM PSTFormatting of this note might be different from t he original. Significant Event by Trice Fagan MD at 04/23/1421 Author: Trice Fagan MD Service: Geothermal Operations Engineer Author Type: Geothermal Operations Engineer Filed: 04/23/1440 Date of Service: 04/23/1421 Status: Addendum Plastic Surgery Nurse: Trice Fagan MD (Physician) Related Notes: Original [...] at 04/22/142010 Author: Jannet Shields MD Service: Geothermal Operations Engineer Author Type: Geothermal Operations Engineer Filed: 04/22/142118 Date of Service: 04/22/142010 Status: Addendum Plastic Surgery Nurse: Jannet Shields MD (Physician) Related Notes: Original Note by Jannet Shields MD (Physician) filed at 04/22/142106 [facility] Service: Geothermal Operations Engineer Progress Note Mackenzie Hartley 58 y.o. Hospital [...] , recurrent UTI, admitted on 04/06/14 in [facility] for nausea, vomiting pre viously ingested [...] given re intubation 04/19/14: Care conference with Geothermal Operations Engineer/AIMS. Continue with full treatment. Heparin infusi on was started due to the splenic artery thrombosis. 04/20/14: Dr. Petty was consult from GI to scope the patient prior to extubation. 04/22/14: Hemorrhagic shock from intraperitoneal bleed on heparin, Gary, Right IJ Cordis, 6 units PRBC, 2 [...] Procedure: ESOPHAGOGASTRODUODENOSCOPY; Surgeon: Bony Petty MD; Location: [facility] BED[facility]IDE PROCEDURE; Service: Gastroenterology; Laterality: N/A; [...] fibrillation) Stricture esophagus dilated with bougue 20 algerian 04/21/2014 Crohn's disease Microcytic anemia Aspiration pneumonia [...] stable. Idiopathic Cardiomyopathy: LVEF 60% here at [facility] improved over the 30% noted in [...] dilated by Dr Petty with a 20 algerian robert 04/21/14 Intraperitoneal bleed/Hemorrhagic Shock: While on [...] (none) Author Type: Registered Nurse Filed: 04/22/14 4066 Date of Service: 04/22/14 1315 Status: Signed Plastic Surgery Nurse: Cher Bailey RN (Registered Nurse) Patient increasingly [...] Author: LEVI Acharya Service: (none) Author Type: Air Valve Mechanic Filed: 04/22/14 1124 Date of Service: 04/22/141121 Status: Signed Plastic Surgery Nurse: LEVI Acharya (Air Valve Mechanic) Attended morning rounds. No family present during [...] 1458 Date of Service: 04/22/14814 Status: Signed Plastic Surgery Nurse: Rich Jiménez PT (Physical Therapist) 04/22/14814 PT [...] 04/21/141824 Date of Service: 04/21/141821 Status: Signed Plastic Surgery Nurse: Taylor Trevino RN (Registered Nurse) Attempted to call pt's Norm [phone] to obtain consent to give blood. No answe r, will attempt to call again soon. TAYLOR TREVINO 04/21/2014 onver roshan Kapooraction, Provider Unknown - 04/21/2014 4:46 PM PST Progress Notes by Darline Hartley RN at 04/21/14 1646 Author: Darline Hartley RN Service: (none) Author Type: Registered Nurse Filed: 04/21/14 1647 Date of Service: 04/21/141645 Status: Signed Plastic Surgery Nurse: Darline Hartley RN (Registered Nurse) Savary dilators used incrementally at 18Fr and 20Fr. DARLINE HARTLEY onver roshan Transaction, Provider Unknown - 04/21/2014 3:30 PM PST Progress Notes by Taylor Trevino RN at 04/21/14 1530 Author: Taylor Trevino RN Service: (none) Author Type: Registered Nurse Filed: 04/21/14 1557 Date of Service: 04/21/141529 Status: Signed Plastic Surgery Nurse: Taylor Trevino RN (Registered Nurse) Dr Petty [...] 134 Date of Service: 04/21/141339 Status: Signed Plastic Surgery Nurse: Leah Chris RPH (Pharmacist) Day 10 Vanco [...] Date of Service: 04/21/14 1015 Status: Signed Plastic Surgery Nurse: Jaz Mobley PT (Physical Therapist) 04/21/14 1015 [...] 04/21/14 1008 Author: Trice Fagan MD Service: Geothermal Operations Engineer Author Type: Geothermal Operations Engineer Filed: 04/21/14 2300 Date of Service: 04/21/14 1008 Status: Signed Plastic Surgery Nurse: Trice Fagan MD (Physician) [facility] Service: Geothermal Operations Engineer Progress Note Mackenzie Hartley 58 y.o. Hospital [...] , recurrent UTI, admitted on 04/06/14 in [facility] for nausea, vomiting pre viously ingested [...] given re intubation 04/19/14: Care conference with Geothermal Operations Engineer/AIMS. Continue with full treatment. Heparin infusi on [...] stable. Idiopathic Cardiomyopathy: LVEF 30% by ECHO ([place]). ECHO here at [facility] 04/20/14 Impression 1. Overall left ventricular [...] (none) Author Type: Registered Nurse Filed: 04/20/14 2023 Date of Service: 04/20/141699 Status: Signed Plastic Surgery Nurse: Taylor Trevino RN (Registered Nurse) Labs drawn from [facility] per protocol. Flushed with 20ML NS, jhony back and wasted 8ML blo od and then jhony sample. Labs sent to lab per orders. TAYLOR TREVINO 04/20/2014 onver roshan Transaction, Provider Unknown - 04/20/2014 2:54 PM PST Progress Notes by Pia Garcia RD, CD at 04/20/14 5828 Author: Pia Garcia RD, CD Service: (none) Author Type: Registered Dietitian Filed: 04/20/14 0198 Date of Service: 04/20/14 225 Status: Signed Plastic Surgery Nurse: Pia Garcia RD, CD (Registered Dietitian) Nutrition [...] Progress Notes by JENARO Perez at 04/20/14 1962 Author: JENARO Perez Service: Geothermal Operations Engineer Author Type: Geothermal Operations Engineer Filed: 04/20/14 3957 Date of Service: 04/20/14 8158 Status: Signed Plastic Surgery Nurse: JENARO Perez (Nurse Practitioner) [facility] Service: Geothermal Operations Engineer Progress Note Mackenzie Hartley 58 y.o. Hospital [...] COPD, recurrent UTI, admitted on 04/06/14 in [facility] for nausea, vomiti ng previously ingested [...] given re intubation 04/19/14: Care conference with Geothermal Operations Engineer/AIMS. Continue with full treatment. Heparin infusi on [...] Net 714.5 ml EXAM GEN: Sedated modified [place] scale of 3 patient is able to [...] Life issues: Was a DNR while in [place] but consented to be intubated prior to [...] stable. Idiopathic Cardiomyopathy: LVEF 30% by ECHO ([place]). PULM: Pulmonary Edema: Related to cardiomyopathy and [...] 04/20/14899 Date of Service: 04/20/14899 Status: Signed Plastic Surgery Nurse: Leah Chris RPH (Pharmacist) Day 9 Vanco Tx Todays Scr= 0.58, WBC= 21.3 with estim CrCl= 110.5 ml/min Pharmacist: LEAH CHRIS 04/20/2014 8:59 AM onver roshan Transaction, Provider Unknown - 04/19/2014 7:53 PM PST Progress Notes by Mila Pinedo at 04/19/141952 Author: Mila Pinedo Service: (none) Author Type: Hull Sorter Filed: 04/19/142001 Date of Service: 04/19/141952 Status: Signed Plastic Surgery Nurse: Mila Pinedo (Hull Sorter) AIM care conference with Dr Chavez and Maryjane AIM/CM expanded to include ICU Geothermal Operations Engineer and pts current RN. Present also were Mackenzie's , Kole, and two of the four children, Silva and Otilia. Geothermal Operations Engineer gave a thorough explanation of the progression [...] for a good part of her vocation. Geothermal Operations Engineer asked for another care conference on Friday 04/21 to update the family on Mackenzie' s progress. ostLyly smith MSW - 04/19/2014 4:14 PM PST Progress Notes by LEVI Cervantes at 04/19/14 1614 Author: LEVI Cervantes Service: (none) Author Type: Air Valve Mechanic Filed: 04/19/14 7808 Date of Service: 04/19/14 1614 Status: Signed Plastic Surgery Nurse: LEVI Cervatnes (Air Valve Mechanic) SOPHIE SAEED, SOPHIE SIMS, Hull Sorter, pt's RN Kassandra Garrett and ICU Geothermal Operations Engineer met with family to ex plore goals of care. ICU Geothermal Operations Engineer thoroughly explained pt's course of care during [...] spouse Kole and dtrs Liam live in [place], [place]. Family e xpressed strong concerns that [...] several months and had see n an mathematician research for the mouth and throat sores to no avail. Pt's spouse Kole and pt's dtr express tremendous frustration over what they perceive has been poor med ical management of pt's illnesses prior to this admission. ICU Geothermal Operations Engineer recommended a wo rk up of pt's [...] 1328 Date of Service: 04/19/148 Status: Signed Plastic Surgery Nurse: Paula Barnes RPH (Pharmacist) Clinical Pharmacy Note: [...] Date of Service: 04/19/14 1152 Status: Signed Plastic Surgery Nurse: Rhianna Blackwood RN (Registered Nurse) Wound care [...] f rom the original. Progress Notes by JENRAO Perez at 04/19/14 4872 Author: JENARO Perez Service: Geothermal Operations Engineer Author Type: Geothermal Operations Engineer Filed: 04/20/14 0749 Date of Service: 04/19/141134 Status: Signed Plastic Surgery Nurse: JENARO Perez (Nurse Practitioner) [facility] Service: Geothermal Operations Engineer Progress Note Mackenzie Hartley 58 y.o. Hospital [...] COPD, recurrent UTI, admitted on 04/06/14 in [facility] for nausea, vomiti ng previously ingested [...] given re intubation 04/19/14: Care conference with Geothermal Operations Engineer/AIMS. Continue with full treatment. Events Overnight: No [...] Life issues: Was a DNR while in [place] but consented to be intubated prior to [...] stable. Idiopathic Cardiomyopathy: LVEF 30% by ECHO ([place]). PULM: Pulmonary Edema: Related to cardiomyopathy and [...] Author: LEVI Acharya Service: (none) Author Type: Air Valve Mechanic Filed: 04/19/14 1134 Date of Service: 04/19/14 113 Status: Signed Plastic Surgery Nurse: LEVI Acharya (Air Valve Mechanic) Care conference arranged for today at 2pm with Dr. Chavez. Await decision of family regardin g continued aggressive care vs. Comfort care. ongenaro islas Transaction, Provider Unknown - 04/19/2014 9:10 AM PST Therapy Progress Note by Rich Jiménez PT at 04/19/14 0910 Author: Rich Jiménez PT Service: (none) Author Type: Physical Therapist Filed: 04/19/14 1153 Date of Service: 04/19/14 0910 Status: Signed Plastic Surgery Nurse: Rich Jiménez PT (Physical Therapist) 04/19/14 0910 PT Last Visit PT Received On 04/19/14 Requires PT Follow Up On hold Lyly Hein, SHREDDER PICKER - 04/18/2014 5:22 PM PST Progress Notes by LEVI Cervantes at 04/18/14 1722 Author: LEVI Cervantes Service: (none) Author Type: Air Valve Mechanic Filed: 04/18/14 1724 Date of Service: 04/18/14 172 Status: Signed Plastic Surgery Nurse: LEVI Cervantes (Air Valve Mechanic) SOPHIE CARVALHOW was summoned to pt's room by pt's RN. Two adult dtr's were bedside. SHREDDER PICKER asked it they would be able to meet with AIM service MD, human resources operations specialist/METALLURGICAL TESTER, ICU SHREDDER PICKER and synthetic department supervisor vreo hoover to discuss goals of care. Dtr's [...] Date of Service: 04/18/14 1419 Status: Signed Plastic Surgery Nurse: Rich Jiménez PT (Physical Therapist) 04/18/14 1419 PT Last Visit PT Received On 04/18/14 Requires PT Follow Up On hold onver roshan Transaction, Provider Unknown - 04/18/2014 12:07 PM PST Case Management by LEVI Acharya at 04/18/14 1207 Author: LEVI Acharya Service: (none) Author Type: Air Valve Mechanic Filed: 04/18/14 1210 Date of Service: 04/18/14 1207 Status: Signed Plastic Surgery Nurse: LEVI Acharya (Air Valve Mechanic) CM called pt's spouse Kole. Spoke with [...] one of them to accompany him to [place] and is waiting to hear from the [...] Author: LEVI Cervantes Service: (none) Author Type: Air Valve Mechanic Filed: 04/18/14 1033 Date of Service: 04/18/14 1031 Status: Signed Plastic Surgery Nurse: LEVI Cervantes (Air Valve Mechanic) SOPHIE SHREDDER PICKER called pt's spouse Kole using phone contact [...] by Paula Barnes RPH at 04/18/14930 Author: Paual Barnes RPH Service: (none) Author Type: Pharmacist Filed: 04/18/14930 Date of Service: 04/18/14930 Status: Signed Plastic Surgery Nurse: Paula Barnes RPH (Pharmacist) Clinical Pharmacy Note: Vancomycin Day 7 No trough ordered today Dose @ 1400 Vancomycin 1250mg Daily IVPB Improvement in Scr. If this is sustained, will check level tomorrow to see we are not unde rdosing. Paula Barnes RP 04-18-2014 Mai Madrigal ARNP - 04/18/2014 6:42 AM PST Progress Notes by JENARO Mcdermott at 04/18/14641 Author: JENARO Mcdermott Service: Geothermal Operations Engineer Author Type: Nurse Practitioner Filed: 04/18/14 1137 Date of Service: 04/18/14641 Status: Signed Plastic Surgery Nurse: JENARO Mcdermott (Nurse Practitioner) [facility] Service: Geothermal Operations Engineer Progress Note Mackenzie Hartley 58 y.o. Hospital [...] COPD, recurrent UTI, admitted on 04/06/14 in [facility] for nausea, vomiti ng previously ingested [...] Life issues: Was a DNR while in [place] but convinced to be intubated prior to [...] stable. Idiopathic Cardiomyopathy: LVEF 30% by ECHO ([place]). Lasix 20mg today (04/18) PULM: Pulmonary Edema: [...] 141 Date of Service: 04/17/141411 Status: Signed Plastic Surgery Nurse: Paula Barnes RPH (Pharmacist) Clinical Pharmacy Note: Vancomycin Day 6 Vancomycin trough today at 1300 was 17.5 Scr 0.96 mg/dL CrCl 66.8 ml/min WBC 19.2 Continue Vancomycin 1250 mg IV q24h Dose at 1400 Paula Barnes RP 04-17-2014 onver roshan Transaction, Provider Unknown - 04/17/2014 11:07 AM PST Case Management by LEVI Acharya at 04/17/14 1107 Author: LEVI Acharya Service: (none) Author Type: Air Valve Mechanic Filed: 04/17/14 1108 Date of Service: 04/17/141106 Status: Signed Plastic Surgery Nurse: LEVI Acharya (Air Valve Mechanic) Pt re-intubated yesterday. Dr. Chavez to consult [...] 0945 Date of Service: 04/17/1440 Status: Signed Plastic Surgery Nurse: Jessica Huerta PT (Physical Therapist) 04/17/14 0940 PT Last Visit PT Received On 04/17/14 Requires PT Follow Up On hold (see comments) Other Comments Comments Pt remains intubated. Awaiting new orders when/if appropriate. Mai Madrigal ARNP - 04/17/2014 8:58 AM PST Progress Notes by JENARO Mcdermott at 04/17/14 0858 Author: JENARO Mcdermott Service: Geothermal Operations Engineer Author Type: Nurse Practitioner Filed: 04/17/14 1237 Date of Service: 04/17/1458 Status: Addendum Plastic Surgery Nurse: JENARO Mcdermott (Nurse Practitioner) Related Notes: Original Note by JENARO Mcdermott (Nurse Practitioner) filed at 10/[address] [place] [address] Service: Geothermal Operations Engineer Progress Note Mackenzie Hartley 58 y.o. Hospital [...] COPD, recurrent UTI, admitted on 04/06/14 in [facility] for nausea, vomiti ng previously ingested [...] Life issues: Was a DNR while in [place] but convinced to be intubated prior to tr cristina, will consult palliative care service and engage in conversation about this i ssjennie CV: Splenic artery thrombosis. Will use prophylactic dose Lovenox, & consider warfarin PAF: Paroxysmal Atrial Fib treated with amiodarone now staying in [place]. Idiopathic Cardiomyopathy: LVEF 30% by ECHO from recent ECHO in [place] PULM: Pulmonary Edema: Related to cardiomyopathy and [...] 154 Date of Service: 04/16/141540 Status: Signed Plastic Surgery Nurse: Nadir Yee RPH (Pharmacist) Vancomycin day 5, trough at 1300 today was 19.3 (goal 15-20). Will continue at same dosing and recheck a trough level on 04/17 at 1300. onver roshan Transaction, Provider Unknown - 04/16/2014 1:25 PM PST Progress Notes by Jacoby Muñoz RD at 04/16/14 3472 Author: Jacoby Muñoz RD Service: (none) Author Type: Registered Dietitian Filed: 04/16/14 5533 Date of Service: 04/16/14 1325 Status: Signed Plastic Surgery Nurse: Jacoby Muñoz RD (Registered Dietitian) Nutrition Follow-Up [...] Date of Service: 04/16/14 1222 Status: Signed Plastic Surgery Nurse: Rich Jiménez PT (Physical Therapist) 04/16/14 1222 [...] Date of Service: 04/16/14 1151 Status: Signed Plastic Surgery Nurse: Nadir Yee RPH (Pharmacist) Vancomycin day 5, est crcl 74.5ml/min, awaiting trough level at 1300 today. onver roshan Transaction, Provider Unknown - 04/16/2014 11:37 AM PST Case Management by Alessia Smith RN at 04/16/14 4287 Author: Alessia Smith RN Service: (none) Author Type: Registered Nurse Filed: 04/16/14 4321 Date of Service: 04/16/141136 Status: Addendum Plastic Surgery Nurse: Alessia Smith RN (Registered Nurse) Related Notes: Original Note by Alessia Smith RN (Registered Nurse) filed at 04/16/14 7196 Tried to call but number on facesheet is non-functioning. Called [facility] for t elephone number (they have same number). They will also fax a page from pt.s last admission to them that states pt.iIs full code. Will continue to try and connect with per Dr. Hsu request. Kole's phone as listed in the room is [phone]. Spoke with him, he didn't have plans [...] 04/16/149 Date of Service: 04/16/141047 Status: Signed Plastic Surgery Nurse: Becka Lama RN (Registered Nurse) Attempted to visit pt for Coumadin Education. Pt intubated in ICU. Coumadin education yovani otero left on chart to review with pt as appropriate. Jannet Roach MD - 04/16/2014 5:31 AM PSTFormatting of this note might be different from the briana ginal. Progress Notes by Jannet Shields MD at 04/16/14530 Author: Jannet Shields MD Service: Geothermal Operations Engineer Author Type: Geothermal Operations Engineer Filed: 04/16/1449 Date of Service: 04/16/14530 Status: Signed Plastic Surgery Nurse: Jannet Shields MD (Physician) [facility] Service: Geothermal Operations Engineer Progress Note Mackenzie Hartley 58 y.o. Hospital Day: LOS: 4 days Post-Op Day: * No surgery found * Consulting Physicians Treatment Team: Admitting Provider: Bonnie Greenberg MD SUBJECTIVE Patient Summary: Per Dr Greenberg: The patient is a 58 y.o. female with significant [facility] medical history of splenic artery thrombosis on anticoagulation (warfarin), Crohn's disea se (on every 6 week Remicaide infusion and prednisone at 15 mg daily), chronic pain syndrome , COPD, recurrent UTI, admitted on 04/06/14 in [facility] for nausea, vomiti ng previously ingested [...] chloride 0.9 % 10 mL Intravenous Q12H [facility] vancomycin 17 mg/kg Intravenous Q24H CONTINUOUS [...] Life issues: Was a DNR while in [place] but convinced to be intubated prior to tr cristina, will consult palliative care service and engage in conversation about this i ssue CV: Splenic artery thrombosis. Will use prophylactic dose Lovenox, & consider warfarin PAF: Paroxysmal Atrial Fib treated with amiodarone now staying in [place]. Idiopathic Cardiomyopathy: LVEF 30% by ECHO from recent ECHO in [place] PULM: Pulmonary Edema: Related to cardiomyopathy and [...] 04/15/141801 Date of Service: 04/15/141801 Status: Signed Plastic Surgery Nurse: Hipolito Isaac () Pt sleeping. Will continue to provide care as needed/requested. Chaplain Chandler onver roshan Transaction, Provider Unknown - 04/15/2014 3:45 PM PST Therapy Progress Note by Rich Jiménez PT at 04/15/14 7775 Author: Rich Jiménez PT Service: (none) Author Type: Physical Therapist Filed: 04/15/14 1743 Date of Service: 04/15/14 1545 Status: Signed Plastic Surgery Nurse: Rich Jiménez PT (Physical Therapist) 04/15/14 1547 PT Last Visit PT Received On 04/15/14 [...] Author: LEVI Acharya Service: (none) Author Type: Air Valve Mechanic Filed: 04/15/14 1150 Date of Service: 04/15/141145 Status: Addendum Plastic Surgery Nurse: LEVI Acharya (Air Valve Mechanic) Related Notes: Original Note by LEVI Acharya (Air Valve Mechanic) filed at 04/15/14 1148 Attended morning rounds. Pt is now on bi-pap. called and received update from RN. Informed that he would not be visiting pt today. He has not visited pt since her admit. I have placed pt on list at [facility] as a back up plan as she will likely need SNF for reha b. PT notes indicate this as well. [facility] - [phone] onver roshan Transaction, Provider Unknown - 04/15/2014 8:12 AM PST Progress Notes by Nadir Yee RPH at 04/15/14811 Author: Nadir Yee RPH Service: Pharmacy Author Type: Pharmacist Filed: 04/15/14811 Date of Service: 04/15/14811 Status: Signed Plastic Surgery Nurse: Nadir Yee RPH (Pharmacist) Vancomycin day 4, [...] 04/15/14 0645 Author: Jannet Shields MD Service: Geothermal Operations Engineer Author Type: Geothermal Operations Engineer Filed: 04/15/14 0702 Date of Service: 04/15/1445 Status: Signed Plastic Surgery Nurse: Jannet Shields MD (Physician) [facility] Service: Geothermal Operations Engineer Progress Note [facility] 58 [facility] [...] COPD, recurrent UTI, admitted on 04/06/14 in [facility] for nausea, vomiting previously ing ested [...] 04/14/141850 Date of Service: 04/14/141850 Status: Signed Plastic Surgery Nurse: Alireza Vides RPH (Pharmacist) vanco level came back high at 33.0. Will hold current dose and redraw a level tomorrow morn ing with am labs. Goal trough 15-20. onver roshan Transaction, Provider Unknown - 04/14/2014 1:36 PM PST Therapy Progress Note by Juma Bazzi PT at 04/14/14 2996 Author: Juma Bazzi PT Service: (none) Author Type: Physical Therapist Filed: 04/14/14 1621 Date of Service: 04/14/141335 Status: Signed Plastic Surgery Nurse: Juma Bazzi PT (Physical Therapist) 04/14/14 1336 PT Last Visit PT Received On 04/14/14 Reason for Treatment Deconditioning;Other (comment) (Acute Resp Failure; co-morbidities) Requires PT Follow Up Awaiting tx order Follow up PT Only? Yes (Further mobility assessment) PT Eval/Reassessment Date 04/14/14 Assistance Required 1 person;2 person Retail Sales Clerk Needed No Requires PT Follow Up Awaiting [...] pt's mentation progresses. Prior Function Level of [place] Independent with ADLs;Independent with functional mobility;Independe nt [...] Date 04/14/14 Assistance Required 1 person;2 person Retail Sales Clerk Needed No Precautions Other Precautions Fall risk; [...] to assess as pt's mentation progresses. onver roshna Transaction, Provider Unknown - 04/14/2014 12:10 PM PST Progress Notes by Deborah Torres at 04/14/14 1210 Author: Deborah Torres Service: (none) Author Type: Filed: 04/14/14 1211 Date of Service: 04/14/141209 Status: Signed Plastic Surgery Nurse: Deborah Torres () This a new pt. Attempted visit, but pt is sedated and on bi-pap. No familly present at this time. Chaplain Deborah Torres onver roshan Transaction, Provider Unknown - 04/14/2014 9:42 AM PST Case Management by LEVI Acharya at 04/14/1442 Author: LEVI Acharya Service: (none) Author Type: Air Valve Mechanic Filed: 04/14/1443 Date of Service: 04/14/14941 Status: Signed Plastic Surgery Nurse: LEVI Acharya (Air Valve Mechanic) 04/14/1439 Discharge Planning Evaluation Admitting Diagnosis acute [...] assist from . May need HHPT via [facility]. May n eed IPR?? DEMARCO MONTEZ onver roshan Transaction, Provider Unknown - 04/14/2014 9:29 AM PST Case Management by LEVI Acharya at 04/14/14928 Author: LEVI Acharya Service: (none) Author Type: Air Valve Mechanic Filed: 04/14/1444 Date of Service: 04/14/14928 Status: Signed Plastic Surgery Nurse: LEVI Acharya (Air Valve Mechanic) Pt is sleeping with oxymask on. She was extubated early this morning. is not at th e bedside. I called to obtain assessment. rZeferino fishman MD - 04/14/2014 5:29 AM PST Progress Notes by Zeferino Aly MD at 04/14/14528 Author: Zeferino Aly MD Service: Geothermal Operations Engineer Author Type: Geothermal Operations Engineer Filed: 04/14/14537 Date of Service: 04/14/14528 Status: Signed Plastic Surgery Nurse: Zeferino Aly MD (Physician) [facility] Service: Geothermal Operations Engineer Progress Note [facility] 58 [facility] [...] UTI, admitted on 04/06/14 in [facility] in [place] for nausea, vomiting previously ing ested food, [...] Notes by Bonnie Greenberg MD at 04/13/14 2460 Author: Bonnie Greenberg MD Service: Geothermal Operations Engineer Author Type: Physician Filed: 04/13/14 1732 Date of Service: 04/13/14 0546 Status: Signed Plastic Surgery Nurse: Bonnie Greenberg MD (Physician) [facility] Service: Geothermal Operations Engineer Progress Note [facility]enzie [facility] 58 y.o[facility] [...] COPD, recurrent UTI, admitted on 04/06/14 in [facility] for nausea, vomiting previously ing ested [...] Date of Service: 04/13/14 1015 Status: Signed Plastic Surgery Nurse: Osvaldo Allen RRT (Registered Respiratory Therapist) Tried to wean to PS/CPAP but she is not breathing regularly enough. Placed on PRVC with low RR & automode for now. onver roshan Transaction, Provider Unknown - 04/13/2014 9:57 AM PST Case Management by LEVI Acharya at 04/13/14956 Author: LEVI Acharya Service: (none) Author Type: Air Valve Mechanic Filed: 04/13/145 Date of Service: 04/13/14956 Status: Addendum Plastic Surgery Nurse: LEVI Acharya (Air Valve Mechanic) Related Notes: Original Note by LEVI Acharya (Air Valve Mechanic) filed at 04/13/141043 Pt was transferred from [facility]. She is vented. has not called or v isited. I attempted to reach him by home phone ([phone]) however he did not answer. I [facility] stafff has left messages as well. I called the [place] and requested a drive-by to see if can be reached. [place] [employer] will call me back after they have tried to make contact with . Addendum: Received t/c from pt's , Kole. He states that the police came to his ho me to request that he call us. He stated that we had been leaving messages on patient's cell phone. His cell number is [phone]. I asked him if he would be [...] prefe r that. He requested that the Geothermal Operations Engineer call him. Provided Dr. Greenberg with 's [...] 04/13/1416 Date of Service: 04/13/14913 Status: Signed Plastic Surgery Nurse: Jaquelin Cat, RN (Registered Nurse) Received order [...] 04/12/142033 Date of Service: 04/12/142033 Status: Signed Plastic Surgery Nurse: Britni Shaffer RPH (Pharmacist) Renal Dosing Monitoring: [...] 04/12/142032 Date of Service: 04/12/142032 Status: Signed Plastic Surgery Nurse: Britni Shaffer RPH (Pharmacist) Clinical Pharmacy Note: Initiation of Vancomycin Pharmacy Dosing Mackenzie Hartley 58 y.o. female 1.753 m (5' 9") 78.4 kg (172 lb 13.5 oz) Body mass index is 25.51 kg/(m^2). CREATININE Date Value Range Status 04/12/2014 0.96 0.50 - 1.00 mg/dL Final Testing performed at [facility];[address] [place] [address];[place] [address] Estimated CrCl : CREATININE: 0.96 (04/12/14 1731) [...] H&P by Bonnie Greenberg MD at 04/12/14 0938 Author: Bonnie Greenberg MD Service: Geothermal Operations Engineer Author Type: Physician Filed: 04/12/14 7272 Date of Service: 04/12/14 5334 Status: Addendum Plastic Surgery Nurse: Bonnie Greenberg MD (Physician) Related Notes: Original Note by Bonnie Greenberg MD (Physician) filed at 04/12 4374 [facility] Service: Geothermal Operations Engineer Admission History & Physical Mackenzie Hartley 58 [...] COPD, recurrent UTI, admitted on 04/06 in [facility] for nausea, vomiting previously ingested food, [...] her code status. She was transferred to [facility] for further care. She arrived intubated, [...] labs reviewed. Awaiting labs done here in [facility]. Na 139 K 4.4 Cl 105 BUN 16 Creatinine 0.86 Magnesium 1.6 Albumin 2.2 AST 28 ALT 8 WBC 15.8 Hgb 12.1/Hct 38.9 Micro gram positive cocci in blood CS on 04/09/14, grew staphylococcus capitis. IMAGING No imaging to review. Will obtain old imaging done in [facility] Echo done on 04/08/14 with EF 35-40%, [...] Not in acute exacerbation. Will continue PRN ALYEC. GI/NUTRITION: NPO for now. Crohn's disease. Started [...] in th is encounter Procedure Notes Carla aKur ARNP - 04/22/2014 2:36 PM PSTFormatting of this note might be diff erent from the original. Procedures by JENARO Perez at 04/22/14 1436 Author: JENARO Perez Service: Geothermal Operations Engineer Author Type: Geothermal Operations Engineer Filed: 04/22/14 1439 Date of Service: 04/22/14 1436 Status: Signed Plastic Surgery Nurse: JENARO Perez (Nurse Practitioner) Procedure Orders: 1. Insert arterial line [[id number]] ordered by JENARO Perez at 04/22/14 1436 Post-procedure Diagnoses: 1. Acute gastroenteritis [558.9] 2. Acute respiratory failure (HCC) [518.81] 3. Acute systolic heart failure (HCC) [428.21] 4. Aspiration pneumonia ([facility]) [507.0] 5. COPD (chronic obstructive pulmonary disease) (HCC) [496] 6. 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 Microcytic anemia [280.9] 9. Narcotic dependence (HCC) [304.90] 10. PAF (paroxysmal atrial fibrillation) ([facility]) [427.31] 11. Sepsis(995.91) [995.91] [facility] Service: Geothermal Operations Engineer BEDSIDE PROCEDURE NOTE Insert Arterial Line Date/Time: 04/22/2014 2:36 PM Performed by: CARLA KAUR Authorized by: CARLA KAUR Consent: The procedure was performed in an emergent situation. Patient identity confirmed: arm band Time out: Immediately prior to procedure a "time out" was called to verify the correct starr ent, procedure, equipment, technical support specialist and site/side marked as required. Indications: multiple [...] at 04/22/14 1431 Author: JENARO Perez Service: Geothermal Operations Engineer Author Type: Geothermal Operations Engineer Filed: 04/22/14 1436 Date of Service: 04/22/141430 Status: Signed Plastic Surgery Nurse: JENARO Perez (Nurse Practitioner) Procedure Orders: 1. Central line [[id number]] ordered by JENARO Perez at 04/22/14 1431 Post-procedure Diagnoses: 1. Acute gastroenteritis [558.9] 2. Acute respiratory failure (HCC) [518.81] 3. Acute systolic heart failure (HCC) [428.21] 4. Aspiration pneumonia ([facility]) [507.0] 5. COPD (chronic obstructive pulmonary disease) (HCC) [496] 6. 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 Microcytic anemia [280.9] 9. Narcotic dependence (HCC) [304.90] 10. PAF (paroxysmal atrial fibrillation) ([facility]) [427.31] 11. Sepsis(995.91) [995.91] [facility] Service: Geothermal Operations Engineer BEDSIDE PROCEDURE NOTE Central Line Date/Time: 04/22/2014 2:32 PM Performed by: CARLA KAUR Authorized by: CARLA KAUR Consent: The procedure was performed in an emergent situation. Patient identity confirmed: arm band Time out: Immediately prior to procedure a "time out" was called to verify the correct starr ent, procedure, equipment, technical support specialist and site/side marked as required. Indications: vascular [...] Procedures by Bony Petty MD at 04/21/14 3703 Author: Bony Petty MD Service: Gastroenterology Author Type: Physician Filed: 04/23/14 1309 Date of Service: 04/21/149 Status: Signed Plastic Surgery Nurse: Bony Petty MD (Physician) Related Notes: Original Note by Bony Petty MD (Physician) filed at 04/21/14 7961 Procedure Orders: 1. Case Request Operating Room: ESOPHAGOGASTRODUODENOSCOPY [[id number]] ordered by Bony steven MD at 04/21/14 1529 Pre-procedure Diagnoses: 1. Odynophagia [787.20] 2. Weight loss [783.21] 3. Aspiration pneumonia (HCC) [507.0] Post-procedure Diagnoses: 1. Benign esophageal stricture [530.3] 2. Reflux esophagitis [530.11] 3. Gastritis [535.50] Procedures: 1. UPR GI NDSC DILAT GSTR OUTLET FOR OBSTRCJ [[id number] (CPT)] DATE OF SERVICE April 21, 2014 [...] at 04/16/14517 Author: Jannet Shields MD Service: Geothermal Operations Engineer Author Type: Geothermal Operations Engineer Filed: 04/16/14517 Date of Service: 04/16/14517 Status: Signed Plastic Surgery Nurse: Jannet Shields MD (Physician) [facility] Service: Geothermal Operations Engineer Procedure: Oral Trachel Intubation Indication: Respiratory Failure [...] the tube. Complications: None Jann[facility] Shields MD, [facility] this encounter Consult Notes Bogdan Moser DO - 04/23/2014 12:58 AM PST Consults by Bogdan Moser DO at 04/23/1457 Author: Bogdan Moser DO Service: General Surgery Author Type: Physician Filed: 04/23/14 0109 Date of Service: 04/23/1457 Status: Signed Plastic Surgery Nurse: Bogdan Moser DO (Physician) Consult Orders: 1. Inpatient consult to Trauma Surgery [[id number]] ordered by Trice Fagan MD at 04/11 [...] a lar ge LEFT rectus hematoma measuring [id number]. This was presumed to be the source [...] Procedure: ESOPHAGOGASTRODUODENOSCOPY; Surgeon: Bony Petty MD; Location: [facility] BEDSIDE PROCEDURE; Service: Gastroenterology; Laterality: N/A; [...] sulfate, nystatin, nystatin, ondansetron OR ondansetron, pancrelipase (Gve-Deef-Cvx l) 10,000 units, petrolatum, phosphorus OR sodium [...] fibrillation) Stricture esophagus dilated with bougue 20 algerian 04/21/2014 ASSESSMENT & PLAN Hemorrhagic shock. Likely [...] Consult* by Jacoby Muñoz RD at 04/13/14 3305 Author: Jacoby Muñoz RD Service: (none) Author Type: Registered Dietitian Filed: 04/13/14 0093 Date of Service: 04/13/145 Status: Signed Plastic Surgery Nurse: Jacoby Muñoz RD (Registered Dietitian) Nutrition Assessment [...] to admi t as pt transferred from [facility], recent nausea, emesis, abdominal discomfort. Current intake: [...] 04/22/14152 Date of Service: 04/22/14152 Status: Signed Plastic Surgery Nurse: Nahun Puckett RN (Registered Nurse) Problem: Pain [...] 04/21/14249 Date of Service: 04/21/14249 Status: Signed Plastic Surgery Nurse: Nahun Puckett RN (Registered Nurse) Problem: Pain [...] at 04/20/142014 Author: Trice Fagan MD Service: Geothermal Operations Engineer Author Type: Geothermal Operations Engineer Filed: 04/20/142033 Date of Service: 04/20/142014 Status: Addendum Plastic Surgery Nurse: Trice Fagan MD (Physician) Related Notes: Original [...] at 04/19/142017 Author: Trice Fagan MD Service: Geothermal Operations Engineer Author Type: Geothermal Operations Engineer Filed: 04/19/142021 Date of Service: 04/19/142017 Status: Signed Plastic Surgery Nurse: Trice Fagan MD (Physician) Was called into [...] Date of Service: 04/19/14 1047 Status: Signed Plastic Surgery Nurse: Mary Garrett RN (Registered Nurse) Daily care [...] Date of Service: 04/19/14 104 Status: Signed Plastic Surgery Nurse: Mary Garrett RN (Registered Nurse) Daily care needs are met Progressing Enteral feeds are at goal rate lan o f Jerald - Alexandro Stanley MD - 04/16/2014 3:45 PM PSTFormatting of this note might be diffe rent from the original. Plan of Care by Alexandro Stanley MD at 04/16/14 1545 Author: Alexandro Stanley MD Service: (none) Author Type: Geothermal Operations Engineer Filed: 04/16/14 1549 Date of Service: 04/16/14 154 Status: Signed Plastic Surgery Nurse: Alexandro Stanley MD (Physician) D/w with tuan [...] code status to full code in the [facility]. We planned to give her another [...] 04/14/141901 Date of Service: 04/14/141901 Status: Signed Plastic Surgery Nurse: Abhi Matute RN (Registered Nurse) Problem: Transfers [...] a dusky-brown | | | friable tissue. Wrapper Rewinder sections are submitted in cassettes | | | (A1-A3). FM MICROSCOPIC EXAMINATION: Histologic sections of all | | | submitted blocks are examined by light microscopy. These findings, | | | together with the gross examination, support the pathologic diagnosis. | | | PERFORMING LABORATORY: Professional interpretation and technical | | | preparation was performed by [facility], [facility] | | | [address] [address] (Vending Machine Collector: | | | Raphael Yee M.D.; IA#: [id number]). Diagnostician: Salty Bolton | | | King [...] | | Fingerstick | performed at [facility];[address] | | LAB | | | | [address];[place] | | | | | | [address] | | | | + + + [...] | | performed at [facility];[address] | | LAB | | | | [address];[place] | | | | | | [address] | | | | + + + + + + | Non- | 3.62 (L)Comment: Testing | 3.70 - 5.10 | EXTERNAL | | | Red Blood | performed at [facility];[address] | M/uL | LAB | | | Cells | [address];[place] | | | | | Counted | [address] | | | | + + + + + + | Hemoglobin | 10.5 (L)Comment: Testing | 11.3 - 15.5 | EXTERNAL | | | | performed at [facility];[address] | g/dL | LAB | | | | [address];[place] | | | | | | [address] | | | | + + + + + + | Hematocrit, | 31.3 (L)Comment: Testing | 34.0 - 46.0 % | EXTERNAL | | | POC | performed at [facility];[address] | | LAB | | | | [address];[place] | | | | | | [address] | | | | + + + + + + | MCV | 86.5Comment: Testing | 80.0 - 100.0 fl | EXTERNAL | | | | performed at [facility];[address] | | LAB | | | | [address];[place] | | | | | | [address] | | | | + + + + + + | MCH | 29.1Comment: Testing | 27.0 - 34.0 pg | EXTERNAL | | | | performed at [facility];[address] | | LAB | | | | [address];[place] | | | | | | [address] | | | | + + + + + + | MCHC | 33.6Comment: Testing | 32.0 - 35.5 | EXTERNAL | | | | performed at [facility];[address] | g/dL | LAB | | | | [address];[place] | | | | | | [address] | | | | + + + + + + | RDW-CV | 46.8Comment: Testing | 37 - 53 fl | EXTERNAL | | | | performed at [facility];[address] | | LAB | | | | [address];[place] | | | | | | [address] | | | | + + + + + + | Platelet | 185Comment: Testing | 150 - 400 K/uL | EXTERNAL | | | Count | performed at [facility];[address] | | LAB | | | Plasma | [address];[place] | | | | | | [address] | | | | + + + + + + | MPV | 7.2Comment: Testing | fl | EXTERNAL | | | | performed at [facility];[address] | | LAB | | | | [address];[place] | | | | | | [address] | | | | + + + + + + | Differentia | MANUALComment: Testing | | EXTERNAL | | | l Type | performed at [facility];[address] | | LAB | | | | [address];[place] | | | | | | [address] | | | | + + + + + + | Nucleated | 2 (H)Comment: Testing | /100WBC | EXTERNAL | | | Red Blood | performed at [facility];[address] | | LAB | | | Cells | [address];[place] | | | | | | [address] | | | | + + + + + + | Segmented | 71Comment: Testing | % | EXTERNAL | | | Neutrophils | performed at [facility];[address] | | LAB | | | Manual | [address];[place] | | | | | | [address] | | | | + + + + + + | % Bands | 13Comment: Testing | % | EXTERNAL | | | | performed at [facility];[address] | | LAB | | | | [address];[place] | | | | | | [address] | | | | + + + + + + | % | 1Comment: Testing | % | EXTERNAL | | | Metamyelocy | performed at [facility];[address] | | LAB | | | petros | [address];[place] | | | | | | [address] | | | | + + + + + + | Lymphocytes | 12Comment: Testing | % | EXTERNAL | | | Manual | performed at [facility];[address] | | LAB | | | | [address];[place] | | | | | | [address] | | | | + + + + + + | Monocytes | 3Comment: Testing | % | EXTERNAL | | | Manual | performed at [facility];[address] | | LAB | | | | [address];[place] | | | | | | [address] | | | | + + + + + + | Absolute | 8.3 (H)Comment: Testing | 1.9 - 7.4 K/uL | EXTERNAL | | | Neutrophils | performed at [facility];[address] | | LAB | | | | [address];[place] | | | | | | [address] | | | | + + + + + + | Bands | 1.5 (H)Comment: Testing | 0 - 0.2 K/uL | EXTERNAL | | | Manual | performed at [facility];[address] | | LAB | | | | [address];[place] | | | | | | [address] | | | | + + + + + + | Absolute | 0.1 (H)Comment: Testing | K/uL | EXTERNAL | | | Metamyelocy | performed at [facility];[address] | | LAB | | | petros | [address];[place] | | | | | | [address] | | | | + + + + + + | Absolute | 1.4Comment: Testing | 1.0 - 3.9 K/uL | EXTERNAL | | | Lymphocytes | performed at [facility];[address] | | LAB | | | | [address];[place] | | | | | | [address] | | | | + + + + + + | Absolute | 0.4Comment: Testing | 0 - 0.8 K/uL | EXTERNAL | | | Monocytes | performed at [facility];[address] | | LAB | | | | [address];[place] | | | | | | [address] | | | | + + + + + + | RBC | RBC AND PLT MORPHOLOGY | | EXTERNAL | | | Morphology | APPEAR NORMALComment: | | LAB | | | | Testing performed at | | | | | | [facility];[address];[place] [address] | | | | + + + [...] | | Fingerstick | performed at [facility];[address] | | LAB | | | | [address];[place], [place] | | | | | | [address] | | | | + + + [...] | | performed at [facility];[address] | mmol/L | LAB | | | | [address];[place], [place] | | | | | | [address] | | | | + + + [...] | | performed at [facility];[address] | | LAB | | | | [address];[place], [place] | | | | | | [address] | | | | + + + [...] | | performed at [facility] | | LAB | | | | [address];[place], [place] | | | | | | [address] | | | | + + + [...] | | | | | at [facility];[address] [place] [address] | | | | | | [facility];[place] [address] | | | | + + + [...] | | Patient | performed at [facility];[address] | | LAB | | | | [address];[place] | | | | | | [address] | | | | + + + [...] | | performed at [facility];[address] | | | | | | [address];[place], [place] | | | | | | [address] | | | | + + + [...] | | performed at [facility];[address] | | LAB | | | | [address];[place], [place] | | | | | | [address] | | | | + + + [...] | | performed at [facility];[address] | | LAB | | | | [address];[place] | | | | | | [address] | | | | + + + + + + | Non- | 2.14 (L)Comment: Testing | 3.70 - 5.10 | EXTERNAL | | | Red Blood | performed at [facility];[address] | M/uL | LAB | | | Cells | [address];[place] | | | | | Counted | [address] | | | | + [...] | | performed at [facility];[address] | | | | | | [address];[place] | | | | | | [address] | | | | + + + + + + | Hematocrit, | 18.5 (LL)Comment: CALLED | 34.0 - 46.0 % | EXTERNAL | | | POC | BEATRICE ANN | | LAB | | | | M AT 0450 BY KMREAD BACK | | | | | | RESULTS VERIFIEDTesting | | | | | | performed at [facility];[address] | | | | | | [address];[place] | | | | | | [address] | | | | + + + + + + | MCV | 86.4Comment: Testing | 80.0 - 100.0 fl | EXTERNAL | | | | performed at [facility];[address] | | LAB | | | | [address];[place] | | | | | | [address] | | | | + + + + + + | MCH | 29.4Comment: Testing | 27.0 - 34.0 pg | EXTERNAL | | | | performed at [facility];[address] | | LAB | | | | [address];[place] | | | | | | [address] | | | | + + + + + + | MCHC | 34.1Comment: Testing | 32.0 - 35.5 | EXTERNAL | | | | performed at [facility];[address] | g/dL | LAB | | | | [address];[place] | | | | | | [address] | | | | + + + + + + | RDW-CV | 42.4Comment: Testing | 37 - 53 fl | EXTERNAL | | | | performed at [facility];[address] | | LAB | | | | [address];[place] | | | | | | [address] | | | | + + + + + + | Platelet | 139 (L)Comment: Testing | 150 - 400 K/uL | EXTERNAL | | | Count | performed at [facility];[address] | | LAB | | | Plasma | [address];[place] | | | | | | [address] | | | | + + + + + + | MPV | 7.3Comment: Testing | fl | EXTERNAL | | | | performed at [facility];[address] | | LAB | | | | [address];[place] | | | | | | [address] | | | | + + + + + + | Differentia | MANUALComment: Testing | | EXTERNAL | | | l Type | performed at [facility];[address] | | LAB | | | | [address];[place] | | | | | | [address] | | | | + + + + + + | Nucleated | 3 (H)Comment: Testing | /100WBC | EXTERNAL | | | Red Blood | performed at [facility];[address] | | LAB | | | Cells | [address];[place] | | | | | | [address] | | | | + + + + + + | Segmented | 85Comment: Testing | % | EXTERNAL | | | Neutrophils | performed at [facility];[address] | | LAB | | | Manual | [address];[place] | | | | | | [address] | | | | + + + + + + | % Bands | 3Comment: Testing | % | EXTERNAL | | | | performed at [facility];[address] | | LAB | | | | [address];[place] | | | | | | [address] | | | | + + + + + + | % | 1Comment: Testing | % | EXTERNAL | | | Metamyelocy | performed at [facility];[address] | | LAB | | | petros | [address];[place] [place] | | | | | | [address] | | | | + + + + + + | Lymphocytes | 8Comment: Testing | % | EXTERNAL | | | Manual | performed at [facility];[address] | | LAB | | | | [address];[place] | | | | | | [address] | | | | + + + + + + | Monocytes | 3Comment: Testing | % | EXTERNAL | | | Manual | performed at [facility];888 | | LAB | | | | [address] [place] | | | | | | [address] | | | | + + + + + + | Absolute | 12.9 (H)Comment: Testing | 1.9 - 7.4 K/uL | EXTERNAL | | | Neutrophils | performed at [facility];888 | | LAB | | | | [address];[place] | | | | | | [address] | | | | + + + + + + | Bands | 0.5 (H)Comment: Testing | 0 - 0.2 K/uL | EXTERNAL | | | Manual | performed at [facility];[address] | | LAB | | | | [address];[place] | | | | | | [address] | | | | + + + + + + | Absolute | 0.2 (H)Comment: Testing | K/uL | EXTERNAL | | | Metamyelocy | performed at [facility];[address] | | LAB | | | petros | [address];[place] | | | | | | [address] | | | | + + + + + + | Absolute | 1.2Comment: Testing | 1.0 - 3.9 K/uL | EXTERNAL | | | Lymphocytes | performed at [facility];[address] | | LAB | | | | [address];[place] | | | | | | [address] | | | | + + + + + + | Absolute | 0.5Comment: Testing | 0 - 0.8 K/uL | EXTERNAL | | | Monocytes | performed at [facility];[address] | | LAB | | | | [address];[place] | | | | | | [address] | | | | + + + + + + | RBC | 1+Comment: POLYNORMAL | | EXTERNAL | | | Morphology | PLT MORPHTesting | | LAB | | | | performed at [facility];[address] | | | | | | [address];[place] | | | | | | [address] | | | | | | | [...] | | performed at [facility] | | LAB | | | | [address];[place] | | | | | | [address] [...] [place], | | | | | | [place] [address] | | | | + + + [...] | | | | | | at [facility], [address] | | | | | | [place], | | | | | | [place] [address] | | | | + + + [...] | | | | | | [place] [address] | | | | + + + + + + | Albumin | 2.3 (L)Comment: Testing | 3.6 - 5.0 g/dL | EXTERNAL | | | | performed at [facility], [address] | | LAB | | | | [address], | | | | | | [place] [address] | | | | + + + + + + | Bilirubin | 1.0Comment: Testing | 0.1 - 1.5 mg/dL | EXTERNAL | | | Total | performed at [facility], [address] | | LAB | | | | [address], | | | | | | [place] [address] | | | | + + + + + + | Bilirubin | 0.4 (H)Comment: Testing | 0.0 - 0.3 mg/dL | EXTERNAL | | | Direct | performed at [facility], [address] | | LAB | | | | [address], | | | | | | [place] [address] | | | | + + + + + + | ALP, | 44Comment: Testing | 35 - 115 U/L | EXTERNAL | | | External | performed at [facility], [address] | | LAB | | | | [place], | | | | | | [place] [address] | | | | + + + + + + | AST | 1,692 (H)Comment: | 10 - 45 U/L | EXTERNAL | | | | Testing performed at | | LAB | | | | [facility], [address] | | | | | | [place] | | | | | | [address] | | | | + + + + + + | ALT | 901 (H)Comment: Testing | 10 - 65 U/L | EXTERNAL | | | | performed at [facility], [address] | | LAB | | | | [place], | | | | | | [place] [address] | | | | + + + [...] | | | | | [place] [address] | | | | + + + + + + | K | 3.7Comment: Testing | 3.5 - 4.9 | EXTERNAL | | | | performed at [facility], [address] | mmol/L | LAB | | | | [address], | | | | | | [place] [address] | | | | + + + + + + | Cl | 113 (H)Comment: Testing | 99 - 109 mmol/L | EXTERNAL | | | | performed at [facility], [address] | | LAB | | | | [address], | | | | | | [place] [address] | | | | + + + + + + | CO2 | 28Comment: Testing | 23 - 32 mmol/L | EXTERNAL | | | | performed at [facility], [address] | | LAB | | | | [address], | | | | | | [place] [address] | | | | + + + + + + | Anion Gap | 10Comment: Testing | 5 - 20 mmol/L | EXTERNAL | | | | performed at [facility], [address] | | LAB | | | | [address], | | | | | | [place] [address] | | | | + + + + + + | Glucose, | 146 (H)Comment: Testing | 65 - 99 mg/dL | EXTERNAL | | | Fasting | performed at [facility], [address] | | LAB | | | | [address], | | | | | | [place] [address] | | | | + + + + + + | BUN | 37 (H)Comment: Testing | 8 - 25 mg/dL | EXTERNAL | | | | performed at [facility], [address] | | LAB | | | | [address], | | | | | | [place] [address] | | | | + + + + + + | Creatinine | 1.21 (H)Comment: Testing | 0.50 - 1.00 | EXTERNAL | | | | performed at [facility], [address] | mg/dL | LAB | | | | [address] [place], | | | | | | [place] [address] | | | | + + + + + + | BUN/Creatin | 31Comment: Testing | | EXTERNAL | | | ine Ratio | performed at [facility], [address] | | LAB | | | | [address], | | | | | | [place] [address] | | | | + + + + + + | Calcium | 7.9 (L)Comment: Testing | 8.5 - 10.2 | EXTERNAL | | | | performed at [facility], [address] | mg/dL | LAB | | | | [address], | | | | | | [place] [address] | | | | + + + [...] | | | | | | at [facility], [address] | | | | | | [place], | | | | | | [place] [address] | | | | + + + [...] | | performed at [facility];888 | | LAB | | | | [address];[place] | | | | | | [address] | | | | + + + + + + | Non- | 3.39 (L)Comment: Testing | 3.70 - 5.10 | EXTERNAL | | | Red Blood | performed at [facility];888 | M/uL | LAB | | | Cells | [address];[place] | | | | | Counted | [address] | | | | + + + + + + | Hemoglobin | 9.6 (L)Comment: Testing | 11.3 - 15.5 | EXTERNAL | | | | performed at [facility];888 | g/dL | LAB | | | | [address];[place] | | | | | | [address] | | | | + + + + + + | Hematocrit, | 29.4 (L)Comment: Testing | 34.0 - 46.0 % | EXTERNAL | | | POC | performed at [facility];[address] | | LAB | | | | [address];[place] | | | | | | [address] | | | | + + + + + + | MCV | 86.8Comment: Testing | 80.0 - 100.0 fl | EXTERNAL | | | | performed at [facility];[address] | | LAB | | | | [address];[place] | | | | | | [address] | | | | + + + + + + | MCH | 28.2Comment: Testing | 27.0 - 34.0 pg | EXTERNAL | | | | performed at [facility];[address] | | LAB | | | | [address];[place] | | | | | | [address] | | | | + + + + + + | MCHC | 32.5Comment: Testing | 32.0 - 35.5 | EXTERNAL | | | | performed at [facility];888 | g/dL | LAB | | | | [address];[place] | | | | | | [address] | | | | + + + + + + | RDW-CV | 42.4Comment: Testing | 37 - 53 fl | EXTERNAL | | | | performed at [facility];[address] | | LAB | | | | [address];[place] | | | | | | [address] | | | | + + + + + + | Platelet | 57 (L)Comment: Testing | 150 - 400 K/uL | EXTERNAL | | | Count | performed at [facility];[address] | | LAB | | | Plasma | [address];[place] | | | | | | [address] | | | | + + + + + + | MPV | 8.8Comment: Testing | fl | EXTERNAL | | | | performed at [facility];[address] | | LAB | | | | [address];[place] | | | | | | [address] | | | | + + + + + + | Differentia | MANUALComment: Testing | | EXTERNAL | | | l Type | performed at [facility];[address] | | LAB | | | | [address];[place] | | | | | | [address] | | | | + + + + + + | Nucleated | 2 (H)Comment: Testing | /100WBC | EXTERNAL | | | Red Blood | performed at [facility];[address] | | LAB | | | Cells | [address];[place] | | | | | | [address] | | | | + + + + + + | Segmented | 76Comment: Testing | % | EXTERNAL | | | Neutrophils | performed at [facility];[address] | | LAB | | | Manual | [address];[place] | | | | | | [address] | | | | + + + + + + | % Bands | 10Comment: Testing | % | EXTERNAL | | | | performed at [facility];[address] | | LAB | | | | [address];[place] | | | | | | [address] | | | | + + + + + + | % | 2Comment: Testing | % | EXTERNAL | | | Metamyelocy | performed at [facility];[address] | | LAB | | | petros | [address];[place] | | | | | | [address] | | | | + + + + + + | Lymphocytes | 9Comment: Testing | % | EXTERNAL | | | Manual | performed at [facility];[address] | | LAB | | | | [address];[place] | | | | | | [address] | | | | + + + + + + | Monocytes | 3Comment: Testing | % | EXTERNAL | | | Manual | performed at [facility];[address] | | LAB | | | | [address];[place] | | | | | | [address] | | | | + + + + + + | Absolute | 11.0 (H)Comment: Testing | 1.9 - 7.4 K/uL | EXTERNAL | | | Neutrophils | performed at [facility];[address] | | LAB | | | | [address];[place] | | | | | | [address] | | | | + + + + + + | Bands | 1.5 (H)Comment: Testing | 0 - 0.2 K/uL | EXTERNAL | | | Manual | performed at [facility];[address] | | LAB | | | | [address];[place] | | | | | | [address] | | | | + + + + + + | Absolute | 0.3 (H)Comment: Testing | K/uL | EXTERNAL | | | Metamyelocy | performed at [facility];[address] | | LAB | | | petros | [address];[place] | | | | | | [address] | | | | + + + + + + | Absolute | 1.3Comment: Testing | 1.0 - 3.9 K/uL | EXTERNAL | | | Lymphocytes | performed at [facility];[address] | | LAB | | | | [address];[place] | | | | | | [address] | | | | + + + + + + | Absolute | 0.4Comment: Testing | 0 - 0.8 K/uL | EXTERNAL | | | Monocytes | performed at [facility];[address] | | LAB | | | | [address];[place] | | | | | | [address] | | | | + + + + + + | Platelet | DECREASEDComment: | | EXTERNAL | | | Estimate | Testing performed at | | LAB | | | | [facility];[address];[place] [address] | | | | + + + + + + | RBC | 1+Comment: POLYTesting | | EXTERNAL | | | Morphology | performed at [facility];[address] | | LAB | | | | [address];[place] | | | | | | [address] | | | | | | | [...] | | Fingerstick | performed at [facility];[address] | | LAB | | | | [address];[place] | | | | | | [address] | | | | + + [...] | | performed at [facility];[address] | | LAB | | | | [address];[place] | | | | | | [address] | | | | + + + + + + | PCO2 ART | 44Comment: Testing | 35 - 45 mmHg | EXTERNAL | | | | performed at [facility];[address] | | LAB | | | | [address];[place] | | | | | | [address] | | | | + + + + + + | PO2 ART | 251 (H)Comment: Testing | 80 - 105 mmHg | EXTERNAL | | | | performed at [facility];[address] | | LAB | | | | [address];[place] | | | | | | [address] | | | | + + + + + + | HCO3 ART | 24Comment: Testing | 22 - 26 mmol/L | EXTERNAL | | | | performed at [facility];[address] | | LAB | | | | [address];[place] | | | | | | [address] | | | | + + + + + + | POC | 26Comment: Testing | 23 - 27 mEq/L | EXTERNAL | | | APPEARANCE | performed at [facility];[address] | | LAB | | | UA | [address];[place] | | | | | | [address] | | | | + + + + + + | Base | 1Comment: Testing | 0.0 - 2.0 | EXTERNAL | | | deficit | performed at [facility];888 | mmol/L | LAB | | | | [address];[place] | | | | | | [address] | | | | + + + + + + | O2 SAT ART | 100 (H)Comment: Testing | 95 - 98 % | EXTERNAL | | | | performed at [facility];[address] | | LAB | | | | [address];[place] | | | | | | [address] | | | | + + + + + + | Sodium, POC | 146 (H)Comment: Testing | 135 - 145 mEq/L | EXTERNAL | | | | performed at [facility];888 | | LAB | | | | [address];[place] | | | | | | [address] | | | | + + + + + + | Potassium, | 4.5Comment: Testing | 3.5 - 5.0 mEq/L | EXTERNAL | | | POC | performed at [facility];888 | | LAB | | | | [address];[place] | | | | | | [address] | | | | + + + + + + | Ionized | 0.91 (L)Comment: Testing | 1.12 - 1.32 | EXTERNAL | | | Calcium, | performed at [facility];888 | mmol/L | LAB | | | POC | [address];[place] | | | | | | [address] | | | | + + + + + + | Glucose, | 232 (H)Comment: Testing | 65 - 99 mg/dL | EXTERNAL | | | POC | performed at [facility];888 | | LAB | | | | [address];[place] | | | | | | [address] | | | | + + + + + + | Hematocrit, | 32 (L)Comment: Testing | 35.0 - 46.0 % | EXTERNAL | | | POC | performed at [facility];888 | | LAB | | | | [address];[place] | | | | | | [address] | | | | + + + + + + | Hemoglobin, | 10.9 (L)Comment: Testing | 11.6 - 15.5 | EXTERNAL | | | POC | performed at [facility];888 | g/dL | LAB | | | | [address];[place] | | | | | | [address] | | | | + + + [...] | | | | | ACUTE IA CKTRP PHONED TO | | | | | | RUDI Patiño AT 0339 BY | | | | | | LJREAD BACK RESULTS | | | | | | VERIFIEDTesting | | | | | | performed at [facility];[address] | | | | | | [address];[place], [place] | | | | | | [address] | | | | + + + [...] | | | M AT 0145 BY [employer] BACK | | | | | | RESULTS VERIFIEDTesting | | | | | | performed at [facility];[address] | | | | | | [address];[place] | | | | | | [address] | | | | + + + + + + | Non- | 3.32 (L)Comment: Testing | 3.70 - 5.10 | EXTERNAL | | | Red Blood | performed at [facility];888 | M/uL | LAB | | | Cells | [address];[place] | | | | | Counted | [address] | | | | + + + + + + | Hemoglobin | 9.7 (L)Comment: Testing | 11.3 - 15.5 | EXTERNAL | | | | performed at [facility];888 | g/dL | LAB | | | | [address];[place] | | | | | | [address] | | | | + + + + + + | Hematocrit, | 29.3 (L)Comment: Testing | 34.0 - 46.0 % | EXTERNAL | | | POC | performed at [facility];[address] | | LAB | | | | [address];[place] | | | | | | [address] | | | | + + + + + + | MCV | 88.5Comment: Testing | 80.0 - 100.0 fl | EXTERNAL | | | | performed at [facility];[address] | | LAB | | | | [address];[place] | | | | | | [address] | | | | + + + + + + | MCH | 29.1Comment: Testing | 27.0 - 34.0 pg | EXTERNAL | | | | performed at [facility];[address] | | LAB | | | | [address];[place] | | | | | | [address] | | | | + + + + + + | MCHC | 32.9Comment: Testing | 32.0 - 35.5 | EXTERNAL | | | | performed at [facility];888 | g/dL | LAB | | | | [address];[place] | | | | | | [address] | | | | + + + + + + | RDW-CV | 45.9Comment: Testing | 37 - 53 fl | EXTERNAL | | | | performed at [facility];[address] | | LAB | | | | [address];[place] | | | | | | [address] | | | | + + + + + + | Platelet | 155Comment: Testing | 150 - 400 K/uL | EXTERNAL | | | Count | performed at [facility];[address] | | LAB | | | Plasma | [address];[place] | | | | | | [address] | | | | + + + + + + | MPV | 8.4Comment: Testing | fl | EXTERNAL | | | | performed at [facility];[address] | | LAB | | | | [address];[place] | | | | | | [address] | | | | + + + + + + | Differentia | MANUALComment: Testing | | EXTERNAL | | | l Type | performed at [facility];[address] | | LAB | | | | [address];[place] | | | | | | [address] | | | | + + + + + + | Nucleated | 2 (H)Comment: Testing | /100WBC | EXTERNAL | | | Red Blood | performed at [facility];[address] | | LAB | | | Cells | [address];[place] | | | | | | [address] | | | | + + + + + + | Segmented | 69Comment: Testing | % | EXTERNAL | | | Neutrophils | performed at [facility];[address] | | LAB | | | Manual | [address];[place] | | | | | | [address] | | | | + + + + + + | % Bands | 7Comment: Testing | % | EXTERNAL | | | | performed at [facility];[address] | | LAB | | | | [address];[place] | | | | | | [address] | | | | + + + + + + | % | 4Comment: Testing | % | EXTERNAL | | | Metamyelocy | performed at [facility];[address] | | LAB | | | petros | [address];[place] | | | | | | [address] | | | | + + + + + + | % | 2Comment: Testing | % | EXTERNAL | | | Myelocytes | performed at [facility];[address] | | LAB | | | | [address];[place] | | | | | | [address] | | | | + + + + + + | Lymphocytes | 10Comment: Testing | % | EXTERNAL | | | Manual | performed at [facility];[address] | | LAB | | | | [address];[place] | | | | | | [address] | | | | + + + + + + | Monocytes | 8Comment: Testing | % | EXTERNAL | | | Manual | performed at [facility];[address] | | LAB | | | | [address];[place] | | | | | | [address] | | | | + + + + + + | Absolute | 21.7 (H)Comment: Testing | 1.9 - 7.4 K/uL | EXTERNAL | | | Neutrophils | performed at [facility];888 | | LAB | | | | [address];[place] | | | | | | [address] | | | | + + + + + + | Bands | 2.2 (H)Comment: Testing | 0 - 0.2 K/uL | EXTERNAL | | | Manual | performed at [facility];[address] | | LAB | | | | [address];[place] | | | | | | [address] | | | | + + + + + + | Absolute | 1.3 (H)Comment: Testing | K/uL | EXTERNAL | | | Metamyelocy | performed at [facility];[address] | | LAB | | | petros | [address];[place] | | | | | | [address] | | | | + + + + + + | Absolute | 0.6 (H)Comment: Testing | K/uL | EXTERNAL | | | Myelocytes | performed at [facility];[address] | | LAB | | | | [address];[place] | | | | | | [address] | | | | + + + + + + | Absolute | 3.1Comment: Testing | 1.0 - 3.9 K/uL | EXTERNAL | | | Lymphocytes | performed at [facility];[address] | | LAB | | | | [address];[place] | | | | | | [address] | | | | + + + + + + | Absolute | 2.5 (H)Comment: Testing | 0 - 0.8 K/uL | EXTERNAL | | | Monocytes | performed at [facility];888 | | LAB | | | | [address] [place];[place] | | | | | | [address] | | | | + + + + + + | RBC | 1+Comment: POLYNORMAL | | EXTERNAL | | | Morphology | PLT MORPHTesting | | LAB | | | | performed at [facility];[address] | | | | | | [address];[place] | | | | | | [address] | | | | | | | [...] | | performed at [facility];888 | mmol/L | LAB | | | | [address];[place], [place] | | | | | | [address] | | | | + + + [...] | | performed at [facility];[address] | | LAB | | | | [address];[place] | | | | | | [address] | | | | + + + + + + | PH ART | 7.438Comment: Testing | 7.350 - 7.450 | EXTERNAL | | | | performed at [facility];[address] | | LAB | | | | [address];[place] | | | | | | [address] | | | | + + + + + + | PCO2 ART | 31 (L)Comment: Testing | 35 - 45 mmHg | EXTERNAL | | | | performed at [facility];[address] | | LAB | | | | [address];[place] | | | | | | [address] | | | | + + + + + + | PO2 ART | 115 (H)Comment: Testing | 80 - 105 mmHg | EXTERNAL | | | | performed at [facility];[address] | | LAB | | | | [address];[place] | | | | | | [address] | | | | + + + + + + | HCO3 ART | 21 (L)Comment: Testing | 22 - 26 mmol/L | EXTERNAL | | | | performed at [facility];[address] | | LAB | | | | [address];[place] | | | | | | [address] | | | | + + + + + + | POC | 22 (L)Comment: Testing | 23 - 27 mEq/L | EXTERNAL | | | APPEARANCE | performed at [facility];[address] | | LAB | | | UA | [address];[place] | | | | | | [address] | | | | + + + + + + | Base | 3 (H)Comment: Testing | 0.0 - 2.0 | EXTERNAL | | | deficit | performed at [facility];888 | mmol/L | LAB | | | | [address];[place] | | | | | | [address] | | | | + + + + + + | O2 SAT ART | 99 (H)Comment: Testing | 95 - 98 % | EXTERNAL | | | | performed at [facility];[address] | | LAB | | | | [address];[place] | | | | | | [address] | | | | + + + + + + | Sodium, POC | 149 (H)Comment: Testing | 135 - 145 mEq/L | EXTERNAL | | | | performed at [facility];[address] | | LAB | | | | [address];[place] | | | | | | [address] | | | | + + + + + + | Potassium, | 4.3Comment: Testing | 3.5 - 5.0 mEq/L | EXTERNAL | | | POC | performed at [facility];[address] | | LAB | | | | [address];[place] | | | | | | [address] | | | | + + + + + + | Ionized | 0.98 (L)Comment: Testing | 1.12 - 1.32 | EXTERNAL | | | Calcium, | performed at [facility];888 | mmol/L | LAB | | | POC | [address];[place] | | | | | | [address] | | | | + + + + + + | Glucose, | 52 (L)Comment: Testing | 65 - 99 mg/dL | EXTERNAL | | | POC | performed at [facility];[address] | | LAB | | | | [address];[place] | | | | | | [address] | | | | + + + + + + | Hematocrit, | 23 (LL)Comment: Testing | 35.0 - 46.0 % | EXTERNAL | | | POC | performed at [facility];[address] | | LAB | | | | [address];[place] | | | | | | [address] | | | | + + + + + + | Hemoglobin, | 7.8 (LL)Comment: Testing | 11.6 - 15.5 | EXTERNAL | | | POC | performed at [facility];[address] | g/dL | LAB | | | | [address];[place] | | | | | | [address] | | | | + + + + + + | Comment, | Tidal Volume = | | EXTERNAL | | | POC | 460Comment: Peep = 8Resp | | LAB | | | | Rate = 16Testing | | | | | | performed at [facility];[address] | | | | | | [address];[place] | | | | | | [address] | | | | + + + [...] | | Fingerstick | performed at [facility];[address] | | LAB | | | | [address];[place], [place] | | | | | | [address] | | | | + + + [...] Conversion - 11/24/2018 6:38 AM PDT MACKENZIE [id number] years FemaleCT | | HEAD WO CONTRAST04/22/2014 [...] | | Fingerstick | performed at [facility];[address] | | LAB | | | | [address];[place] | | | | | | [address] | | | | + + + [...] | | Fingerstick | performed at [facility];[address] | | LAB | | | | [address];[place] | | | | | | [address] | | | | + + + [...] | | performed at [facility];[address] | mmol/L | LAB | | | | [address];[place], [place] | | | | | | [address] | | | | + + + [...] | | performed at [facility];[address] | | LAB | | | | [address];[place] | | | | | | [address] | | | | + + + [...] | | performed at [facility];[address] | | LAB | | | | [address];[place], [place] | | | | | | [address] | | | | + + + [...] | | | | | ACUTE IA RESULT READ | | | | | | BACK BY:NAHUN Asher/RUDI AT | | | | | | 2112 SAMTesting | | | | | | performed at [facility];[address] | | | | | | [facility];[place], [place] | | | | | | [address] | | | | + + + [...] | | Patient | performed at [facility];[address] | | LAB | | | | [address];[place] | | | | | | [address] | | | | + + + [...] | | performed at [facility];[address] | | | | | | [address] [facility];[place], [place] | | | | | | [address] | | | | + + + [...] | | performed at [facility];[address] | | LAB | | | | [address];[place] | | | | | | [address] | | | | + + + [...] ON | | | | | | [id number] performed | | | | | | at [facility];[address];[place] [address] | | | | + + + + + + | Non- | 2.58 (L)Comment: Testing | 3.70 - 5.10 | EXTERNAL | | | Red Blood | performed at [facility];[address] | M/uL | LAB | | | Cells | [address];[place] | | | | | Counted | [address] | | | | + + + + + + | Hemoglobin | 7.3 (L)Comment: Testing | 11.3 - 15.5 | EXTERNAL | | | | performed at [facility];[address] | g/dL | LAB | | | | [address];[place] | | | | | | [address] | | | | + + + + + + | Hematocrit, | 22.1 (L)Comment: Testing | 34.0 - 46.0 % | EXTERNAL | | | POC | performed at [facility];[address] | | LAB | | | | [address];[place] | | | | | | [address] | | | | + + + + + + | MCV | 85.8Comment: Testing | 80.0 - 100.0 fl | EXTERNAL | | | | performed at [facility];[address] | | LAB | | | | [address];[place] | | | | | | [address] | | | | + + + + + + | MCH | 28.5Comment: Testing | 27.0 - 34.0 pg | EXTERNAL | | | | performed at [facility];[address] | | LAB | | | | [address];[place] | | | | | | [address] | | | | + + + + + + | MCHC | 33.2Comment: Testing | 32.0 - 35.5 | EXTERNAL | | | | performed at [facility];[address] | g/dL | LAB | | | | [address];[place] | | | | | | [address] | | | | + + + + + + | RDW-CV | 43.3Comment: Testing | 37 - 53 fl | EXTERNAL | | | | performed at [facility];[address] | | LAB | | | | [address];[place] | | | | | | [address] | | | | + + + + + + | Platelet | 197Comment: Testing | 150 - 400 K/uL | EXTERNAL | | | Count | performed at [facility];[address] | | LAB | | | Plasma | [address];[place] | | | | | | [address] | | | | + + + + + + | MPV | 7.4Comment: Testing | fl | EXTERNAL | | | | performed at [facility];[address] | | LAB | | | | [address];[place] | | | | | | [address] | | | | + + + + + + | Differentia | MANUALComment: Testing | | EXTERNAL | | | l Type | performed at [facility];[address] | | LAB | | | | [address];[place] | | | | | | [address] | | | | + + + + + + | Nucleated | 6 (H)Comment: Testing | /100WBC | EXTERNAL | | | Red Blood | performed at [facility];[address] | | LAB | | | Cells | [address];[place] | | | | | | [address] | | | | + + + + + + | Segmented | 69Comment: Testing | % | EXTERNAL | | | Neutrophils | performed at [facility];[address] | | LAB | | | Manual | [address];[place] | | | | | | [address] | | | | + + + + + + | % Bands | 7Comment: Testing | % | EXTERNAL | | | | performed at [facility];[address] | | LAB | | | | [address];[place] | | | | | | [address] | | | | + + + + + + | % | 2Comment: Testing | % | EXTERNAL | | | Metamyelocy | performed at [facility];[address] | | LAB | | | petros | [address];[place] | | | | | | [address] | | | | + + + + + + | % | 1Comment: Testing | % | EXTERNAL | | | Myelocytes | performed at [facility];[address] | | LAB | | | | [address];[place] | | | | | | [address] | | | | + + + + + + | Lymphocytes | 14Comment: Testing | % | EXTERNAL | | | Manual | performed at [facility];888 | | LAB | | | | [address];[place] | | | | | | [address] | | | | + + + + + + | Monocytes | 6Comment: Testing | % | EXTERNAL | | | Manual | performed at [facility];888 | | LAB | | | | [address];[place] | | | | | | [address] | | | | + + + + + + | Eosinophils | 1Comment: Testing | % | EXTERNAL | | | Manual | performed at [facility];888 | | LAB | | | | [address];[place] | | | | | | [address] | | | | + + + + + + | Absolute | 21.3 (H)Comment: Testing | 1.9 - 7.4 K/uL | EXTERNAL | | | Neutrophils | performed at [facility];888 | | LAB | | | | [address];[place] | | | | | | [address] | | | | + + + + + + | Bands | 2.2 (H)Comment: Testing | 0 - 0.2 K/uL | EXTERNAL | | | Manual | performed at [facility];888 | | LAB | | | | [address];[place] | | | | | | [address] | | | | + + + + + + | Absolute | 0.6 (H)Comment: Testing | K/uL | EXTERNAL | | | Metamyelocy | performed at [facility];888 | | LAB | | | petros | [address];[place] | | | | | | [address] | | | | + + + + + + | Absolute | 0.3 (H)Comment: Testing | K/uL | EXTERNAL | | | Myelocytes | performed at [facility];[address] | | LAB | | | | [address];[place] | | | | | | [address] | | | | + + + + + + | Absolute | 4.3 (H)Comment: Testing | 1.0 - 3.9 K/uL | EXTERNAL | | | Lymphocytes | performed at [facility];[address] | | LAB | | | | [address];[place] | | | | | | [address] | | | | + + + + + + | Absolute | 1.8 (H)Comment: Testing | 0 - 0.8 K/uL | EXTERNAL | | | Monocytes | performed at [facility];[address] | | LAB | | | | [address];[place] | | | | | | [address] | | | | + + + + + + | Absolute | 0.3Comment: Testing | 0 - 0.5 K/uL | EXTERNAL | | | Eosinophils | performed at [facility];[address] | | LAB | | | | [address];[place] | | | | | | [address] | | | | + + + + + + | Platelet | ADEQUATEComment: Testing | | EXTERNAL | | | Estimate | performed at [facility];[address] | | LAB | | | | [facility] | | | | | | [address] | | | | + + + + + + | RBC | 1+Comment: GIANT | | EXTERNAL | | | Morphology | PLATELETS1+POLYTesting | | LAB | | | | performed at [facility];[address] | | | | | | [facility] | | | | | | [address] | | | | | |Testing performed at [facility];[address] [facility];[place] [address] | | | | | | | [...] | | performed at [facility];888 | | LAB | | | | [address];[place], [place] | | | | | | [address] | | | | + + + [...] | | performed at [facility];888 | | LAB | | | | [address];[place] | | | | | | [address] | | | | + + + [...] | | performed at [facility];888 | mmol/L | LAB | | | | [address];[place] | | | | | | [address] | | | | + + + + + + | K | 4.0Comment: Testing | 3.5 - 4.9 | EXTERNAL | | | | performed at [facility];888 | mmol/L | LAB | | | | [address];[place] | | | | | | [address] | | | | + + + + + + | Cl | 112 (H)Comment: Testing | 99 - 109 mmol/L | EXTERNAL | | | | performed at [facility];[address] | | LAB | | | | [address];[place] | | | | | | [address] | | | | + + + + + + | CO2 | 30Comment: Testing | 23 - 32 mmol/L | EXTERNAL | | | | performed at [facility];[address] | | LAB | | | | [address];[place] | | | | | | [address] | | | | + + + + + + | Anion Gap | 12Comment: Testing | 5 - 20 mmol/L | EXTERNAL | | | | performed at [facility];[address] | | LAB | | | | [address];[place] | | | | | | [address] | | | | + + + + + + | Glucose, | 67Comment: Testing | 65 - 99 mg/dL | EXTERNAL | | | Fasting | performed at [facility];[address] | | LAB | | | | [address];[place] | | | | | | [address] | | | | + + + + + + | BUN | 37 (H)Comment: Testing | 8 - 25 mg/dL | EXTERNAL | | | | performed at [facility];[address] | | LAB | | | | [address];[place] | | | | | | [address] | | | | + + + + + + | Creatinine | 1.34 (H)Comment: Testing | 0.50 - 1.00 | EXTERNAL | | | | performed at [facility];888 | mg/dL | LAB | | | | [address];[place] | | | | | | [address] | | | | + + + + + + | BUN/Creatin | 28Comment: Testing | | EXTERNAL | | | ine Ratio | performed at [facility];[address] | | LAB | | | | [address];[place] | | | | | | [address] | | | | + + + + + + | Calcium | 7.9 (L)Comment: Testing | 8.5 - 10.2 | EXTERNAL | | | | performed at [facility];888 | mg/dL | LAB | | | | [address];[place] | | | | | | [address] | | | | + + + [...] | | | | | at [facility];[address];[place] [address] | | | | + + + [...] | | Fingerstick | performed at [facility] | | LAB | | | | [address];[place], [place] | | | | | | [address] | | | | + + + [...] | | Fingerstick | performed at [facility];[address] | | LAB | | | | [address];[place], [place] | | | | | | [address] | | | | + + + [...] | | Fingerstick | performed at [facility];8 | | LAB | | | | [address];[place], [place] | | | | | | [address] | | | | + + + [...] ON | | | | | | [id number] performed | | | | | | at [facility];[address] [place] [address] | | | | | | Blvd;[place] [address] | | | | + + + + + + | Non- | 2.91 (L)Comment: Testing | 3.70 - 5.10 | EXTERNAL | | | Red Blood | performed at [facility];888 | M/uL | LAB | | | Cells | [address];[place] | | | | | Counted | [address] | | | | + + + + + + | Hemoglobin | 8.4 (L)Comment: Testing | 11.3 - 15.5 | EXTERNAL | | | | performed at [facility];888 | g/dL | LAB | | | | [address];[place] | | | | | | [address] | | | | + + + + + + | Hematocrit, | 24.8 (L)Comment: Testing | 34.0 - 46.0 % | EXTERNAL | | | POC | performed at [facility];888 | | LAB | | | | [address];[place] | | | | | | [address] | | | | + + + + + + | MCV | 85.1Comment: Testing | 80.0 - 100.0 fl | EXTERNAL | | | | performed at [facility];888 | | LAB | | | | [address];[place] | | | | | | [address] | | | | + + + + + + | MCH | 28.9Comment: Testing | 27.0 - 34.0 pg | EXTERNAL | | | | performed at [facility];888 | | LAB | | | | [address];[place] | | | | | | [address] | | | | + + + + + + | MCHC | 34.0Comment: Testing | 32.0 - 35.5 | EXTERNAL | | | | performed at [facility];888 | g/dL | LAB | | | | [address];[place] | | | | | | [address] | | | | + + + + + + | RDW-CV | 42.9Comment: Testing | 37 - 53 fl | EXTERNAL | | | | performed at [facility];[address] | | LAB | | | | [address];[place] | | | | | | [address] | | | | + + + + + + | Platelet | 228Comment: Testing | 150 - 400 K/uL | EXTERNAL | | | Count | performed at [facility];[address] | | LAB | | | Plasma | [address];[place] | | | | | | [address] | | | | + + + + + + | MPV | 7.2Comment: Testing | fl | EXTERNAL | | | | performed at [facility];[address] | | LAB | | | | [address];[place] | | | | | | [address] | | | | + + + + + + | Differentia | MANUALComment: Testing | | EXTERNAL | | | l Type | performed at [facility];[address] | | LAB | | | | [address];[place] | | | | | | [address] | | | | + + + + + + | Segmented | 69Comment: Testing | % | EXTERNAL | | | Neutrophils | performed at [facility];888 | | LAB | | | Manual | [address];[place] | | | | | | [address] | | | | + + + + + + | % Bands | 14Comment: Testing | % | EXTERNAL | | | | performed at [facility];[address] | | LAB | | | | [address];[place] | | | | | | [address] | | | | + + + + + + | % | 3Comment: Testing | % | EXTERNAL | | | Metamyelocy | performed at [facility];888 | | LAB | | | petros | [address];[place] | | | | | | [address] | | | | + + + + + + | % | 1Comment: Testing | % | EXTERNAL | | | Myelocytes | performed at [facility];[address] | | LAB | | | | [address];[place] | | | | | | [address] | | | | + + + + + + | Lymphocytes | 9Comment: Testing | % | EXTERNAL | | | Manual | performed at [facility];[address] | | LAB | | | | [address];[place] | | | | | | [address] | | | | + + + + + + | Monocytes | 4Comment: Testing | % | EXTERNAL | | | Manual | performed at [facility];888 | | LAB | | | | [address];[place] | | | | | | [address] | | | | + + + + + + | Absolute | 23.2 (H)Comment: Testing | 1.9 - 7.4 K/uL | EXTERNAL | | | Neutrophils | performed at [facility];888 | | LAB | | | | [address];[place] | | | | | | [address] | | | | + + + + + + | Bands | 4.7 (H)Comment: Testing | 0 - 0.2 K/uL | EXTERNAL | | | Manual | performed at [facility];888 | | LAB | | | | [address];[place] | | | | | | [address] | | | | + + + + + + | Absolute | 1.0 (H)Comment: Testing | K/uL | EXTERNAL | | | Metamyelocy | performed at [facility];888 | | LAB | | | petros | [address];[place] | | | | | | [address] | | | | + + + + + + | Absolute | 0.3 (H)Comment: Testing | K/uL | EXTERNAL | | | Myelocytes | performed at [facility];888 | | LAB | | | | [address];[place] | | | | | | [address] | | | | + + + + + + | Absolute | 3.0Comment: Testing | 1.0 - 3.9 K/uL | EXTERNAL | | | Lymphocytes | performed at [facility];888 | | LAB | | | | [address];[place] | | | | | | [address] | | | | + + + + + + | Absolute | 1.3 (H)Comment: Testing | 0 - 0.8 K/uL | EXTERNAL | | | Monocytes | performed at [facility];888 | | LAB | | | | [address];[place] | | | | | | [address] | | | | + + + + + + | Platelet | ADEQUATEComment: Testing | | EXTERNAL | | | Estimate | performed at [facility];888 | | LAB | | | | [address];[place] | | | | | | [address] | | | | + + + + + + | RBC | 1+Comment: TOXIC | | EXTERNAL | | | Morphology | GRANULATION1+POLYTesting | | LAB | | | | performed at [facility];[address] | | | | | | [address];[place] | | | | | | [address] | | | | | |Testing performed at [facility];[address];[place] [address] | | | | | | | | | | + + + + + + | Nucleated | 4 (H)Comment: Testing | /100WBC | EXTERNAL | | | Red Blood | performed at [facility];[address] | | LAB | | | Cells | [address];[place] | | | | | | [address] | | | | + + + [...] | | performed at [facility];888 | mmol/L | LAB | | | | [address];[place], [place] | | | | | | [address] | | | | + + + [...] | | performed at [facility] | | | | | | [address] [facility];[place], [place] | | | | | | [address] | | | | + + + [...] | | performed at [facility];[address] | | LAB | | | | [address];[place] | | | | | | [address] | | | | + + + + + + | PH ART | 7.358Comment: Testing | 7.350 - 7.450 | EXTERNAL | | | | performed at [facility];[address] | | LAB | | | | [address];[place] | | | | | | [address] | | | | + + + + + + | PCO2 ART | 37Comment: Testing | 35 - 45 mmHg | EXTERNAL | | | | performed at [facility];[address] | | LAB | | | | [address];[place] | | | | | | [address] | | | | + + + + + + | PO2 ART | 84Comment: Testing | 80 - 105 mmHg | EXTERNAL | | | | performed at [facility];[address] | | LAB | | | | [address];[place] | | | | | | [address] | | | | + + + + + + | HCO3 ART | 21 (L)Comment: Testing | 22 - 26 mmol/L | EXTERNAL | | | | performed at [facility];[address] | | LAB | | | | [address];[place] | | | | | | [address] | | | | + + + + + + | POC | 22 (L)Comment: Testing | 23 - 27 mEq/L | EXTERNAL | | | APPEARANCE | performed at [facility];[address] | | LAB | | | UA | [address];[place] | | | | | | [address] | | | | + + + + + + | Base | 5 (H)Comment: Testing | 0.0 - 2.0 | EXTERNAL | | | deficit | performed at [facility];888 | mmol/L | LAB | | | | [address];[place] | | | | | | [address] | | | | + + + + + + | O2 SAT ART | 96Comment: Testing | 95 - 98 % | EXTERNAL | | | | performed at [facility];[address] | | LAB | | | | [address];[place] | | | | | | [address] | | | | + + + + + + | Sodium, POC | 150 (H)Comment: Testing | 135 - 145 mEq/L | EXTERNAL | | | | performed at [facility];[address] | | LAB | | | | [address];[place] | | | | | | [address] | | | | + + + + + + | Potassium, | 3.7Comment: Testing | 3.5 - 5.0 mEq/L | EXTERNAL | | | POC | performed at [facility];888 | | LAB | | | | [address];[place] | | | | | | [address] | | | | + + + + + + | Ionized | 1.01 (L)Comment: Testing | 1.12 - 1.32 | EXTERNAL | | | Calcium, | performed at [facility];888 | mmol/L | LAB | | | POC | [address];[place] | | | | | | [address] | | | | + + + + + + | Glucose, | 195 (H)Comment: Testing | 65 - 99 mg/dL | EXTERNAL | | | POC | performed at [facility];[address] | | LAB | | | | [address];[place] | | | | | | [address] | | | | + + + + + + | Hematocrit, | 23 (LL)Comment: Testing | 35.0 - 46.0 % | EXTERNAL | | | POC | performed at [facility];[address] | | LAB | | | | [address];[place] | | | | | | [address] | | | | + + + + + + | Hemoglobin, | 7.8 (LL)Comment: Testing | 11.6 - 15.5 | EXTERNAL | | | POC | performed at [facility];888 | g/dL | LAB | | | | [address];[place] | | | | | | [address] | | | | + + + + + + | Comment, | Tidal Volume = | | EXTERNAL | | | POC | 16Comment: Peep = 8Resp | | LAB | | | | Rate = 46Testing | | | | | | performed at [facility];[address] | | | | | | [address];[place] | | | | | | [address] | | | | + + + [...] | | Patient | performed at [facility];[address] | | LAB | | | | [address];[place], [place] | | | | | | [address] | | | | + + + [...] | | performed at [facility];[address] | | | | | | [address];[place], [place] | | | | | | [address] | | | | + + + [...] | | performed at [facility];[address] | | LAB | | | | [address];[place] | | | | | | [address] | | | | + + + [...] ON | | | | | | [id number] performed | | | | | | at [facility];[address] | | | | | | [address];[place] [address] | | | | + + + + + + | Non- | 2.99 (L)Comment: Testing | 3.70 - 5.10 | EXTERNAL | | | Red Blood | performed at [facility];888 | M/uL | LAB | | | Cells | [address];[place] | | | | | Counted | [address] | | | | + + + + + + | Hemoglobin | 8.3 (L)Comment: Testing | 11.3 - 15.5 | EXTERNAL | | | | performed at [facility];888 | g/dL | LAB | | | | [address];[place] | | | | | | [address] | | | | + + + + + + | Hematocrit, | 26.5 (L)Comment: Testing | 34.0 - 46.0 % | EXTERNAL | | | POC | performed at [facility];[address] | | LAB | | | | [address];[place] | | | | | | [address] | | | | + + + + + + | MCV | 88.6Comment: Testing | 80.0 - 100.0 fl | EXTERNAL | | | | performed at [facility];888 | | LAB | | | | [address];[place] | | | | | | [address] | | | | + + + + + + | MCH | 27.8Comment: Testing | 27.0 - 34.0 pg | EXTERNAL | | | | performed at [facility];888 | | LAB | | | | [address];[place] | | | | | | [address] | | | | + + + + + + | MCHC | 31.4 (L)Comment: Testing | 32.0 - 35.5 | EXTERNAL | | | | performed at [facility];888 | g/dL | LAB | | | | [address];[place] | | | | | | [address] | | | | + + + + + + | RDW-CV | 47.3Comment: Testing | 37 - 53 fl | EXTERNAL | | | | performed at [facility];[address] | | LAB | | | | [address];[place] | | | | | | [address] | | | | + + + + + + | Platelet | 78 (L)Comment: Testing | 150 - 400 K/uL | EXTERNAL | | | Count | performed at [facility];[address] | | LAB | | | Plasma | [address];[place] | | | | | | [address] | | | | + + + + + + | MPV | 8.7Comment: Testing | fl | EXTERNAL | | | | performed at [facility];[address] | | LAB | | | | [address];[place] | | | | | | [address] | | | | + + + + + + | Differentia | MANUALComment: Testing | | EXTERNAL | | | l Type | performed at [facility];[address] | | LAB | | | | [address];[place] | | | | | | [address] | | | | + + + + + + | Nucleated | 2 (H)Comment: Testing | /100WBC | EXTERNAL | | | Red Blood | performed at [facility];[address] | | LAB | | | Cells | [address];[place] | | | | | | [address] | | | | + + + + + + | Segmented | 76Comment: Testing | % | EXTERNAL | | | Neutrophils | performed at [facility];[address] | | LAB | | | Manual | [address];[place] | | | | | | [address] | | | | + + + + + + | % Bands | 9Comment: Testing | % | EXTERNAL | | | | performed at [facility];[address] | | LAB | | | | [address];[place] | | | | | | [address] | | | | + + + + + + | % | 3Comment: Testing | % | EXTERNAL | | | Metamyelocy | performed at [facility];[address] | | LAB | | | petros | [address];[place] | | | | | | [address] | | | | + + + + + + | % | 1Comment: Testing | % | EXTERNAL | | | Myelocytes | performed at [facility];888 | | LAB | | | | [address];[place] | | | | | | [address] | | | | + + + + + + | Lymphocytes | 2Comment: Testing | % | EXTERNAL | | | Manual | performed at [facility];[address] | | LAB | | | | [address];[place] | | | | | | [address] | | | | + + + + + + | Monocytes | 9Comment: Testing | % | EXTERNAL | | | Manual | performed at [facility];[address] | | LAB | | | | [address];[place] | | | | | | [address] | | | | + + + + + + | Absolute | 26.7 (H)Comment: Testing | 1.9 - 7.4 K/uL | EXTERNAL | | | Neutrophils | performed at [facility];[address] | | LAB | | | | [address];[place] | | | | | | [address] | | | | + + + + + + | Bands | 3.2 (H)Comment: Testing | 0 - 0.2 K/uL | EXTERNAL | | | Manual | performed at [facility];[address] | | LAB | | | | [address];[place] | | | | | | [address] | | | | + + + + + + | Absolute | 1.1 (H)Comment: Testing | K/uL | EXTERNAL | | | Metamyelocy | performed at [facility];[address] | | LAB | | | petros | [address];[place] | | | | | | [address] | | | | + + + + + + | Absolute | 0.4 (H)Comment: Testing | K/uL | EXTERNAL | | | Myelocytes | performed at [facility];[address] | | LAB | | | | [address];[place] | | | | | | [address] | | | | + + + + + + | Absolute | 0.7 (L)Comment: Testing | 1.0 - 3.9 K/uL | EXTERNAL | | | Lymphocytes | performed at [facility];[address] | | LAB | | | | [address];[place] | | | | | | [address] | | | | + + + + + + | Absolute | 3.2 (H)Comment: Testing | 0 - 0.8 K/uL | EXTERNAL | | | Monocytes | performed at [facility];[address] | | LAB | | | | [address];[place] | | | | | | [address] | | | | + + + + + + | Platelet | DECREASEDComment: | | EXTERNAL | | | Estimate | Testing performed at | | LAB | | | | [facility];[address];[place] [address] | | | | + + + + + + | RBC | 1+Comment: GIANT | | EXTERNAL | | | Morphology | PLATELETS1+POLY1+HYPO1+A | | LAB | | | | NISOTesting performed at | | | | | | [facility];[address] | [address];[place] [address] | | | | | |1+ | | | | | |HYPO | | | | | |1+ | | | | | |ANISO | | | | | |Testing performed at [facility];[address];[place] [address] | | | | | | | | | | + + + + + + | Differentia | SLIDE REFERRED TO | | EXTERNAL | | | l Comments | PATHOLOGIST FOR REVIEW | | LAB | | | | AND COMMENTComment: | | | | | | Testing performed at | | | | | | [facility];[address] [place] [address] | | | | | | [facility];[place] [address] | | | | + + + [...] | | performed at [facility];[address] | mmol/L | LAB | | | | [address];[place] | | | | | | [address] | | | | + + + + + + | K | 3.9Comment: Testing | 3.5 - 4.9 | EXTERNAL | | | | performed at [facility];[address] | mmol/L | LAB | | | | [address];[place] | | | | | | [address] | | | | + + + + + + | Cl | 114 (H)Comment: Testing | 99 - 109 mmol/L | EXTERNAL | | | | performed at [facility];[address] | | LAB | | | | [address];[place] | | | | | | [address] | | | | + + + + + + | CO2 | 21 (L)Comment: Testing | 23 - 32 mmol/L | EXTERNAL | | | | performed at [facility];[address] | | LAB | | | | [address];[place] | | | | | | [address] | | | | + + + + + + | Anion Gap | 23 (H)Comment: Testing | 5 - 20 mmol/L | EXTERNAL | | | | performed at [facility];[address] | | LAB | | | | [address];[place] | | | | | | [address] | | | | + + + + + + | Glucose, | 192 (H)Comment: Testing | 65 - 99 mg/dL | EXTERNAL | | | Fasting | performed at [facility];[address] | | LAB | | | | [address];[place] | | | | | | [address] | | | | + + + + + + | BUN | 34 (H)Comment: Testing | 8 - 25 mg/dL | EXTERNAL | | | | performed at [facility];[address] | | LAB | | | | [address];[place] | | | | | | [address] | | | | + + + + + + | Creatinine | 1.47 (H)Comment: Testing | 0.50 - 1.00 | EXTERNAL | | | | performed at [facility];[address] | mg/dL | LAB | | | | [address];[place] | | | | | | [address] | | | | + + + + + + | BUN/Creatin | 23Comment: Testing | | EXTERNAL | | | ine Ratio | performed at [facility];[address] | | LAB | | | | [address];[place] | | | | | | [address] | | | | + + + + + + | Calcium | 6.7 (L)Comment: Testing | 8.5 - 10.2 | EXTERNAL | | | | performed at [facility];[address] | mg/dL | LAB | | | | [address];[place] | | | | | | [address] | | | | + + + [...] | | | | | at [facility];[address] | | | | | | [address];[place] [address] | | | | + + + [...] | | performed at [facility];888 | mmol/L | LAB | | | | [address];[place], [place] | | | | | | [address] | | | | + + + [...] | | Fingerstick | performed at [facility];888 | | LAB | | | | [address];[place], [place] | | | | | | [address] | | | | + + + [...] | | performed at [facility];888 | | LAB | | | | [address];[place] | | | | | | [address] | | | | + + + + + + | PH ART | 7.140 ()Comment: | 7.350 - 7.450 | EXTERNAL | | | | Testing performed at | | LAB | | | | [facility];[address];[place] [address] | | | | + + + + + + | PCO2 ART | 38Comment: Testing | 35 - 45 mmHg | EXTERNAL | | | | performed at [facility];[address] | | LAB | | | | [address];[place] | | | | | | [address] | | | | + + + + + + | PO2 ART | 104Comment: Testing | 80 - 105 mmHg | EXTERNAL | | | | performed at [facility];[address] | | LAB | | | | [address];[place] | | | | | | [address] | | | | + + + + + + | HCO3 ART | 13 (L)Comment: Testing | 22 - 26 mmol/L | EXTERNAL | | | | performed at [facility];[address] | | LAB | | | | [address];[place] | | | | | | [address] | | | | + + + + + + | POC | 14 (L)Comment: Testing | 23 - 27 mEq/L | EXTERNAL | | | APPEARANCE | performed at [facility];[address] | | LAB | | | UA | [address];[place] | | | | | | [address] | | | | + + + + + + | Base | 16 (H)Comment: Testing | 0.0 - 2.0 | EXTERNAL | | | deficit | performed at [facility];888 | mmol/L | LAB | | | | [address];[place] | | | | | | [address] | | | | + + + + + + | O2 SAT ART | 96Comment: Testing | 95 - 98 % | EXTERNAL | | | | performed at [facility];[address] | | LAB | | | | [address];[place] | | | | | | [address] | | | | + + + + + + | Sodium, POC | 146 (H)Comment: Testing | 135 - 145 mEq/L | EXTERNAL | | | | performed at [facility];[address] | | LAB | | | | [address];[place] | | | | | | [address] | | | | + + + + + + | Potassium, | 5.0Comment: Testing | 3.5 - 5.0 mEq/L | EXTERNAL | | | POC | performed at [facility];[address] | | LAB | | | | [address];[place] | | | | | | [address] | | | | + + + + + + | Ionized | 1.15Comment: Testing | 1.12 - 1.32 | EXTERNAL | | | Calcium, | performed at [facility];888 | mmol/L | LAB | | | POC | [address];[place] | | | | | | [address] | | | | + + + + + + | Glucose, | 265 (H)Comment: Testing | 65 - 99 mg/dL | EXTERNAL | | | POC | performed at [facility];[address] | | LAB | | | | [address];[place] | | | | | | [address] | | | | + + + + + + | Hematocrit, | <10 (LL)Comment: Testing | 35.0 - 46.0 % | EXTERNAL | | | POC | performed at [facility];[address] | | LAB | | | | [address];[place] | | | | | | [address] | | | | + + + + + + | Comment, | Tidal Volume = | | EXTERNAL | | | POC | 16Comment: Peep = 8Resp | | LAB | | | | Rate = 46Testing | | | | | | performed at [facility];[address] | | | | | | [address];[place] | | | | | | [address] | | | | + + [...] | | Fingerstick | performed at [facility];888 | | LAB | | | | [address];[place] | | | | | | [address] | | | | + + + [...] | | Fingerstick | performed at [facility];[address] | | LAB | | | | [address];[place], [place] | | | | | | [address] | | | | + + + [...] | | performed at [facility];[address] | | LAB | | | | [address];[place] | | | | | | [address] | | | | + + + [...] | | performed at [facility] | | LAB | | | | [address];[place], [place] | | | | | | [address] | | | | + + + [...] | | | | | at [facility];[address] [facility] | | | | | | [facility];[place] [address] | | | | + + + [...] | | Patient | performed at [facility];888 | | LAB | | | | [address];[place], [place] | | | | | | [address] | | | | + + + [...] | | performed at [facility];888 | | | | | | [address];[place] | | | | | | [address] | | | | + + + [...] | | performed at [facility];[address] | | LAB | | | | [address];[place] | | | | | | [address] | | | | + + + + + + | Non- | 3.56 (L)Comment: Testing | 3.70 - 5.10 | EXTERNAL | | | Red Blood | performed at [facility];888 | M/uL | LAB | | | Cells | [address];[place] | | | | | Counted | [address] | | | | + + + + + + | Hemoglobin | 8.7 (L)Comment: Testing | 11.3 - 15.5 | EXTERNAL | | | | performed at [facility];888 | g/dL | LAB | | | | [address];[place] | | | | | | [address] | | | | + + + + + + | Hematocrit, | 29.0 (L)Comment: Testing | 34.0 - 46.0 % | EXTERNAL | | | POC | performed at [facility];888 | | LAB | | | | [address];[place] | | | | | | [address] | | | | + + + + + + | MCV | 81.3Comment: Testing | 80.0 - 100.0 fl | EXTERNAL | | | | performed at [facility];888 | | LAB | | | | [address];[place] | | | | | | [address] | | | | + + + + + + | MCH | 24.4 (L)Comment: Testing | 27.0 - 34.0 pg | EXTERNAL | | | | performed at [facility];888 | | LAB | | | | [address];[place] | | | | | | [address] | | | | + + + + + + | MCHC | 30.0 (L)Comment: Testing | 32.0 - 35.5 | EXTERNAL | | | | performed at [facility];888 | g/dL | LAB | | | | [address];[place] | | | | | | [address] | | | | + + + + + + | RDW-CV | 63.9 (H)Comment: Testing | 37 - 53 fl | EXTERNAL | | | | performed at [facility];888 | | LAB | | | | [address];[place] | | | | | | [address] | | | | + + + + + + | Platelet | 330Comment: Testing | 150 - 400 K/uL | EXTERNAL | | | Count | performed at [facility];[address] | | LAB | | | Plasma | [address];[place] | | | | | | [address] | | | | + + + + + + | MPV | 8.6Comment: Testing | fl | EXTERNAL | | | | performed at [facility];[address] | | LAB | | | | [address];[place] | | | | | | [address] | | | | + + + + + + | Differentia | MANUALComment: Testing | | EXTERNAL | | | l Type | performed at [facility];[address] | | LAB | | | | [address];[place] | | | | | | [address] | | | | + + + + + + | Segmented | 77Comment: Testing | % | EXTERNAL | | | Neutrophils | performed at [facility];[address] | | LAB | | | Manual | [address];[place] | | | | | | [address] | | | | + + + + + + | % Bands | 4Comment: Testing | % | EXTERNAL | | | | performed at [facility];[address] | | LAB | | | | [address];[place] | | | | | | [address] | | | | + + + + + + | % | 3Comment: Testing | % | EXTERNAL | | | Metamyelocy | performed at [facility];[address] | | LAB | | | [address] | [address];[place] | | | | | | [address] | | | | + + + + + + | % | 1Comment: Testing | % | EXTERNAL | | | Myelocytes | performed at [facility];[address] | | LAB | | | | [address];[place] | | | | | | [address] | | | | + + + + + + | Lymphocytes | 10Comment: Testing | % | EXTERNAL | | | Manual | performed at [facility];[address] | | LAB | | | | [address];[place] | | | | | | [address] | | | | + + + + + + | Monocytes | 5Comment: Testing | % | EXTERNAL | | | Manual | performed at [facility];[address] | | LAB | | | | [address];[place] | | | | | | [address] | | | | + + + + + + | Absolute | 17.8 (H)Comment: Testing | 1.9 - 7.4 K/uL | EXTERNAL | | | Neutrophils | performed at [facility];888 | | LAB | | | | [address];[place] | | | | | | [address] | | | | + + + + + + | Bands | 0.9 (H)Comment: Testing | 0 - 0.2 K/uL | EXTERNAL | | | Manual | performed at [facility];888 | | LAB | | | | [address];[place] | | | | | | [address] | | | | + + + + + + | Absolute | 0.7 (H)Comment: Testing | K/uL | EXTERNAL | | | Metamyelocy | performed at [facility];888 | | LAB | | | [address] | [address];[place] | | | | | | [address] | | | | + + + + + + | Absolute | 0.2 (H)Comment: Testing | K/uL | EXTERNAL | | | Myelocytes | performed at [facility];888 | | LAB | | | | [address];[place] | | | | | | [address] | | | | + + + + + + | Absolute | 2.3Comment: Testing | 1.0 - 3.9 K/uL | EXTERNAL | | | Lymphocytes | performed at [facility];888 | | LAB | | | | [address];[place] | | | | | | [address] | | | | + + + + + + | Absolute | 1.2 (H)Comment: Testing | 0 - 0.8 K/uL | EXTERNAL | | | Monocytes | performed at [facility];888 | | LAB | | | | [address];[place] | | | | | | [address] | | | | + + + + + + | RBC | 2+Comment: | | EXTERNAL | | | Morphology | HYPO3+ANISO1+POIK1+TARGE | | LAB | | | | TNORMAL PLT MORPHTesting | | | | | | performed at [facility];[address] | | | | | | [address];[place] | | | | | | [address] | | | | | |POIK | | | | | |1+ | | | | | |TARGET | | | | | |NORMAL PLT MORPH | | | | | |Testing performed at [facility];[address] [facility];[place] [address] | | | | | | | [...] performed at [facility], [address] | mg/dL | LAB | | | | [address], | | | | | | [place] [address] | | | | + + + [...] | | | | | [place] [address] | | | | + + + [...] | | performed at [facility];[address] | | LAB | | | | [facility], [place] | | | | | | [address] | | | | + + + [...] | | | | | [place] [address] | | | | + + + [...] | | | | | [place] [address] | | | | + + + + + + | Albumin | 2.4 (L)Comment: Testing | 3.6 - 5.0 g/dL | EXTERNAL | | | | performed at [facility], [address] | | LAB | | | | [address], | | | | | | [place] [address] | | | | + + + + + + | Bilirubin | 0.5Comment: Testing | 0.1 - 1.5 mg/dL | EXTERNAL | | | Total | performed at [facility], [address] | | LAB | | | | [address], | | | | | | [place] [address] | | | | + + + + + + | Bilirubin | 0.1Comment: Testing | 0.0 - 0.3 mg/dL | EXTERNAL | | | Direct | performed at [facility], [address] | | LAB | | | | [address], | | | | | | [place] [address] | | | | + + + + + + | ALP, | 131 (H)Comment: Testing | 35 - 115 U/L | EXTERNAL | | | External | performed at [facility], [address] | | LAB | | | | [address], | | | | | | [place] [address] | | | | + + + + + + | AST | 20Comment: Testing | 10 - 45 U/L | EXTERNAL | | | | performed at [facility], [address] | | LAB | | | | [address], | | | | | | [place] [address] | | | | + + + + + + | ALT | 11Comment: Testing | 10 - 65 U/L | EXTERNAL | | | | performed at [facility], [address] | | LAB | | | | [address], | | | | | | [place], [place] [address] | | | | + + + [...] | | | | | [place] [address] | | | | + + + + + + | Triglycerid | 151 (H)Comment: Testing | mg/dL | EXTERNAL | | | es | performed at [facility], [address] | | LAB | | | | [address], | | | | | | [place] [address] | | | | + + + + + + | HDL | 58Comment: Testing | mg/dL | EXTERNAL | | | | performed at [facility], [address] | | LAB | | | | [address], | | | | | | [place] [address] | | | | + + + + + + | LDL, | 125 (H)Comment: Testing | mg/dL | EXTERNAL | | | Calculated | performed at [facility], [address] | | LAB | | | | [address], | | | | | | [place] [address] | | | | + + + [...] | | | | | [place] [address] | | | | + + + + + + | K | 4.0Comment: Testing | 3.5 - 4.9 | EXTERNAL | | | | performed at [facility], [address] | mmol/L | LAB | | | | [address], | | | | | | [place] [address] | | | | + + + + + + | Cl | 107Comment: Testing | 99 - 109 mmol/L | EXTERNAL | | | | performed at [facility], [address] | | LAB | | | | [address], | | | | | | [place] [address] | | | | + + + + + + | CO2 | 29Comment: Testing | 23 - 32 mmol/L | EXTERNAL | | | | performed at [facility], [address] | | LAB | | | | [address], | | | | | | [place] [address] | | | | + + + + + + | Anion Gap | 13Comment: Testing | 5 - 20 mmol/L | EXTERNAL | | | | performed at [facility], [address] | | LAB | | | | [address], | | | | | | [place] [address] | | | | + + + + + + | Glucose, | 123 (H)Comment: Testing | 65 - 99 mg/dL | EXTERNAL | | | Fasting | performed at [facility], [address] | | LAB | | | | [address], | | | | | | [place] [address] | | | | + + + + + + | BUN | 30 (H)Comment: Testing | 8 - 25 mg/dL | EXTERNAL | | | | performed at [facility], [address] | | LAB | | | | [address], | | | | | | [place] [address] | | | | + + + + + + | Creatinine | 0.64Comment: Testing | 0.50 - 1.00 | EXTERNAL | | | | performed at [facility], [address] | mg/dL | LAB | | | | [address], | | | | | | [place] [address] | | | | + + + + + + | BUN/Creatin | 47Comment: Testing | | EXTERNAL | | | ine Ratio | performed at [facility], [address] | | LAB | | | | [address], | | | | | | [place] [address] | | | | + + + + + + | Calcium | 8.8Comment: Testing | 8.5 - 10.2 | EXTERNAL | | | | performed at [facility], [address] | mg/dL | LAB | | | | [facility], | | | | | | [place] [address] | | | | + + + [...] W | | | | | | [facility], | | | | | | [place] [address] | | | | + + + [...] AC | | | Testing performed at [facility];[address] | | | [address];[place] [address] CULTURE | | | NO GROWTH | | | Testing performed at [facility], [address] [facility], [place], [place] | | | [address] | | + + + + +---------+ [...] AC | | | Testing performed at [facility];[address] | | | [facility];[place] [address] CULTURE | | | NO GROWTH | | | Testing performed at [facility], [address] [facility], [place], [place] | | | [address] | | + + + + +---------+ [...] | | performed at [facility];888 | mmol/L | LAB | | | | [address];[place], [place] | | | | | | [address] | | | | + + + [...] | | Fingerstick | performed at [facility];[address] | | LAB | | | | [address];[place] | | | | | | [address] | | | | + + + [...] | | performed at [facility];[address] | | LAB | | | | [address];[place] | | | | | | [address] | | | | + + + + + + | Non- | 3.11 (L)Comment: Testing | 3.70 - 5.10 | EXTERNAL | | | Red Blood | performed at [facility];888 | M/uL | LAB | | | Cells | [address];[place] | | | | | Counted | [address] | | | | + + + + + + | Hemoglobin | 7.6 (L)Comment: Testing | 11.3 - 15.5 | EXTERNAL | | | | performed at [facility];888 | g/dL | LAB | | | | [address];[place] | | | | | | [address] | | | | + + + + + + | Hematocrit, | 25.7 (L)Comment: Testing | 34.0 - 46.0 % | EXTERNAL | | | POC | performed at [facility];[address] | | LAB | | | | [address];[place] | | | | | | [address] | | | | + + + + + + | MCV | 82.8Comment: Testing | 80.0 - 100.0 fl | EXTERNAL | | | | performed at [facility];[address] | | LAB | | | | [address];[place] | | | | | | [address] | | | | + + + + + + | MCH | 24.6 (L)Comment: Testing | 27.0 - 34.0 pg | EXTERNAL | | | | performed at [facility];[address] | | LAB | | | | [address];[place] | | | | | | [address] | | | | + + + + + + | MCHC | 29.7 (L)Comment: Testing | 32.0 - 35.5 | EXTERNAL | | | | performed at [facility];888 | g/dL | LAB | | | | [address];[place] | | | | | | [address] | | | | + + + + + + | RDW-CV | 66.5 (H)Comment: Testing | 37 - 53 fl | EXTERNAL | | | | performed at [facility];[address] | | LAB | | | | [address];[place] | | | | | | [address] | | | | + + + + + + | Platelet | 318Comment: Testing | 150 - 400 K/uL | EXTERNAL | | | Count | performed at [facility];[address] | | LAB | | | Plasma | [address];[place] | | | | | | [address] | | | | + + + + + + | MPV | 9.1Comment: Testing | fl | EXTERNAL | | | | performed at [facility];[address] | | LAB | | | | [address];[place] | | | | | | [address] | | | | + + + + + + | Differentia | MANUALComment: Testing | | EXTERNAL | | | l Type | performed at [facility];[address] | | LAB | | | | [address];[place] | | | | | | [address] | | | | + + + + + + | Nucleated | 1 (H)Comment: Testing | /100WBC | EXTERNAL | | | Red Blood | performed at [facility];[address] | | LAB | | | Cells | [address];[place] | | | | | | [address] | | | | + + + + + + | Segmented | 70Comment: Testing | % | EXTERNAL | | | Neutrophils | performed at [facility];[address] | | LAB | | | Manual | [address];[place] | | | | | | [address] | | | | + + + + + + | % Bands | 4Comment: Testing | % | EXTERNAL | | | | performed at [facility];[address] | | LAB | | | | [address];[place] | | | | | | [address] | | | | + + + + + + | % | 2Comment: Testing | % | EXTERNAL | | | Metamyelocy | performed at [facility];[address] | | LAB | | | petros | [address];[place] | | | | | | [address] | | | | + + + + + + | % | 1Comment: Testing | % | EXTERNAL | | | Myelocytes | performed at [facility];[address] | | LAB | | | | [address];[place] | | | | | | [address] | | | | + + + + + + | Lymphocytes | 14Comment: Testing | % | EXTERNAL | | | Manual | performed at [facility];[address] | | LAB | | | | [address];[place] | | | | | | [address] | | | | + + + + + + | Monocytes | 9Comment: Testing | % | EXTERNAL | | | Manual | performed at [facility];[address] | | LAB | | | | [address];[place] | | | | | | [address] | | | | + + + + + + | Absolute | 15.0 (H)Comment: Testing | 1.9 - 7.4 K/uL | EXTERNAL | | | Neutrophils | performed at [facility];[address] | | LAB | | | | [address];[place] | | | | | | [address] | | | | + + + + + + | Bands | 0.9 (H)Comment: Testing | 0 - 0.2 K/uL | EXTERNAL | | | Manual | performed at [facility];[address] | | LAB | | | | [address];[place] | | | | | | [address] | | | | + + + + + + | Absolute | 0.4 (H)Comment: Testing | K/uL | EXTERNAL | | | Metamyelocy | performed at [facility];[address] | | LAB | | | [address] | [address];[place] | | | | | | [address] | | | | + + + + + + | Absolute | 0.2 (H)Comment: Testing | K/uL | EXTERNAL | | | Myelocytes | performed at [facility];[address] | | LAB | | | | [address];[place] | | | | | | [address] | | | | + + + + + + | Absolute | 3.0Comment: Testing | 1.0 - 3.9 K/uL | EXTERNAL | | | Lymphocytes | performed at [facility];[address] | | LAB | | | | [address];[place] | | | | | | [address] | | | | + + + + + + | Absolute | 1.9 (H)Comment: Testing | 0 - 0.8 K/uL | EXTERNAL | | | Monocytes | performed at [facility];[address] | | LAB | | | | [address];[place] | | | | | | [address] | | | | + + + + + + | Platelet | ADEQUATEComment: Testing | | EXTERNAL | | | Estimate | performed at [facility];[address] | | LAB | | | | [address];[place] | | | | | | [address] | | | | + + + + + + | RBC | 3+Comment: | | EXTERNAL | | | Morphology | ANISO1+HYPO1+TARGETNORMA | | LAB | | | | L PLT MORPHTesting | | | | | | performed at [facility];[address] | | | | | | [facility], [place] | | | | | | [address] | | | | | |TARGET | | | | | |NORMAL PLT MORPH | | | | | |Testing performed at [facility];[address] [facility];[place] [address] | | | | | | | [...] | | performed at [facility];[address] | | LAB | | | | [address];[place] | | | | | | [address] | | | | + + + [...] | | performed at [facility];[address] | | LAB | | | | [address];[place] | | | | | | [address] | | | | + + + [...] | | performed at [facility];[address] | mmol/L | LAB | | | | [address];[place] | | | | | | [address] | | | | + + + + + + | K | 4.2Comment: Testing | 3.5 - 4.9 | EXTERNAL | | | | performed at [facility];[address] | mmol/L | LAB | | | | [address];[place] | | | | | | [address] | | | | + + + + + + | Cl | 110 (H)Comment: Testing | 99 - 109 mmol/L | EXTERNAL | | | | performed at [facility];[address] | | LAB | | | | [address];[place] | | | | | | [address] | | | | + + + + + + | CO2 | 35 (H)Comment: Testing | 23 - 32 mmol/L | EXTERNAL | | | | performed at [facility];[address] | | LAB | | | | [address];[place] | | | | | | [address] | | | | + + + + + + | Anion Gap | 8Comment: Testing | 5 - 20 mmol/L | EXTERNAL | | | | performed at [facility];[address] | | LAB | | | | [address];[place] | | | | | | [address] | | | | + + + + + + | Glucose, | 120 (H)Comment: Testing | 65 - 99 mg/dL | EXTERNAL | | | Fasting | performed at [facility];[address] | | LAB | | | | [address];[place] | | | | | | [address] | | | | + + + + + + | BUN | 30 (H)Comment: Testing | 8 - 25 mg/dL | EXTERNAL | | | | performed at [facility];[address] | | LAB | | | | [address];[place] | | | | | | [address] | | | | + + + + + + | Creatinine | 0.87Comment: Testing | 0.50 - 1.00 | EXTERNAL | | | | performed at [facility];[address] | mg/dL | LAB | | | | [address];[place] | | | | | | [address] | | | | + + + + + + | BUN/Creatin | 35Comment: Testing | | EXTERNAL | | | ine Ratio | performed at [facility];[address] | | LAB | | | | [address];[place] | | | | | | [address] | | | | + + + + + + | Calcium | 8.0 (L)Comment: Testing | 8.5 - 10.2 | EXTERNAL | | | | performed at [facility];[address] | mg/dL | LAB | | | | [address];[place] | | | | | | [address] | | | | + + + [...] | | | | | at [facility];[address] [place] [address] | | | | | | [facility];[place] [address] | | | | + + + [...] | | performed at [facility];[address] | mmol/L | LAB | | | | [address];[place], [place] | | | | | | [address] | | | | + + + [...] | | | Random | performed at [facility];[address] | | LAB | | | | [address];[place], [place] | | | | | | [address] | | | | + + + [...] | | Fingerstick | performed at [facility];[address] | | LAB | | | | [address];[place], [place] | | | | | | [address] | | | | + + + [...] | | Patient | performed at [facility];[address] | | LAB | | | | [address];[place], [place] | | | | | | [address] | | | | + + + [...] | | Fingerstick | performed at [facility];[address] | | LAB | | | | [address];[place] | | | | | | [address] | | | | + + + [...] Conversion - 11/24/2018 6:38 AM PDT MACKENZIE HARTLEY13/[id number] yearsXR CHEST 1 | | VIEW04/21/2014 5:52 [...] | | performed at [facility];[address] | | | | | | [facility];[place], [place] | | | | | | [address] | | | | + + + [...] | | performed at [facility], [address] | | LAB | | | | [address], | | | | | | [place] [address] | | | | + + +---- + + + | Non- | 3.26 (L)Comment: Testing | 3.7 0 - 5.10 | EXTERNAL | | | Red Blood | performed at [facility], [address] | M/u L | LAB | | | Cells | [address], | | | | | Counted | [place] [address] | | | | + + +---- + + + | Hemoglobin | 8.2 (L)Comment: Testing | 11. 3 - 15.5 | EXTERNAL | | | | performed at [facility], [address] | g/d L | LAB | | | | [address], | | | | | | [place] [address] | | | | + + +---- + + + | Hematocrit, | 27.1 (L)Comment: Testing | 34. 0 - 46.0 % | EXTERNAL | | | POC | performed at [facility], [address] | | LAB | | | | [address], | | | | | | [place] [address] | | | | + + +---- + + + | MCV | 83.1Comment: Testing | 80. 0 - 100.0 fl | EXTERNAL | | | | performed at [facility], [address] | | LAB | | | | [address], | | | | | | [place] [address] | | | | + + +---- + + + | MCH | 25.0 (L)Comment: Testing | 27. 0 - 34.0 pg | EXTERNAL | | | | performed at [facility], [address] | | LAB | | | | [address], | | | | | | [place] [address] | | | | + + +---- + + + | MCHC | 30.1 (L)Comment: Testing | 32. 0 - 35.5 | EXTERNAL | | | | performed at [facility], [address] | g/d L | LAB | | | | [address] [address], | | | | | | [place] [address] | | | | + + +---- + + + | RDW-CV | 67.4 (H)Comment: Testing | 37 - 53 fl | EXTERNAL | | | | performed at [facility], [address] | | LAB | | | | [address], | | | | | | [place] [address] | | | | + + +---- + + + | Platelet | 340Comment: Testing | 150 - 400 K/uL | EXTERNAL | | | Count | performed at [facility], [address] | | LAB | | | Plasma | [address], | | | | | | [place] [address] | | | | + + +---- + + + | MPV | 9.2Comment: Testing | fl | EXTERNAL | | | | performed at [facility], [address] | | LAB | | | | [address], | | | | | | [place] [address] | | | | + + +---- + + + | Differentia | MANUALComment: Testing | | EXTERNAL | | | l Type | performed at [facility], [address] | | LAB | | | | [address], | | | | | | [place] [address] | | | | + + +---- + + + | Nucleated | 1 (H)Comment: Testing | /10 0WBC | EXTERNAL | | | Red Blood | performed at [facility], [address] | | LAB | | | Cells | [address], | | | | | | [place] [address] | | | | + + +---- + + + | Segmented | 80Comment: Testing | % | EXTERNAL | | | Neutrophils | performed at [facility], [address] | | LAB | | | Manual | [address], | | | | | | [place] [address] | | | | + + +---- + + + | % | 2Comment: Testing | % | EXTERNAL | | | Metamyelocy | performed at [facility], [address] | | LAB | | | [address] | [address], | | | | | | [place] [address] | | | | + + +---- + + + | % | 1Comment: Testing | % | EXTERNAL | | | Myelocytes | performed at [facility], [address] | | LAB | | | | [address], | | | | | | [place] [address] | | | | + + +---- + + + | Lymphocytes | 7Comment: Testing | % | EXTERNAL | | | Manual | performed at [facility], [address] | | LAB | | | | [address], | | | | | | [place] [address] | | | | + + +---- + + + | Monocytes | 10Comment: Testing | % | EXTERNAL | | | Manual | performed at [facility], [address] | | LAB | | | | [address], | | | | | | [place] [address] | | | | + + +---- + + + | Absolute | 15.4 (H)Comment: Testing | 1.9 - 7.4 K/uL | EXTERNAL | | | Neutrophils | performed at [facility], [address] | | LAB | | | | [address], | | | | | | [place] [address] | | | | + + +---- + + + | Absolute | 0.4 (H)Comment: Testing | K/u L | EXTERNAL | | | Metamyelocy | performed at [facility], [address] | | LAB | | | [address] | [address], | | | | | | [place] [address] | | | | + + +---- + + + | Absolute | 0.2 (H)Comment: Testing | K/u L | EXTERNAL | | | Myelocytes | performed at [facility], [address] | | LAB | | | | [address], | | | | | | [place] [address] | | | | + + +---- + + + | Absolute | 1.3Comment: Testing | 1.0 - 3.9 K/uL | EXTERNAL | | | Lymphocytes | performed at [facility], [address] | | LAB | | | | [address], | | | | | | [place] [address] | | | | + + +---- + + + | Absolute | 1.9 (H)Comment: Testing | 0 - 0.8 K/uL | EXTERNAL | | | Monocytes | performed at [facility], [address] | | LAB | | | | [address], | | | | | | [place] [address] | | | | + + +---- + + + | RBC | 3+Comment: | | EXTERNAL | | | Morphology | ANISO1+TARGETNORMAL PLT | | LAB | | | | MORPHTesting performed | | | | | | at [facility], [address] | | | | | | [address], | | | | | | [place] [address] | | | | | |Testing performed at [facility], [address] [facility], [place] [address] | | | | | | | [...] | | | | | [place] [address] | | | | + + + [...] [place], | | | | | | [place] [address] | | | | + + + [...] | | | | | [place] [address] | | | | + + + + + + | K | 4.1Comment: Testing | 3.5 - 4.9 | EXTERNAL | | | | performed at [facility], [address] | mmol/L | LAB | | | | [address], | | | | | | [place] [address] | | | | + + + + + + | Cl | 110 (H)Comment: Testing | 99 - 109 mmol/L | EXTERNAL | | | | performed at [facility], [address] | | LAB | | | | [address], | | | | | | [place] [address] | | | | + + + + + + | CO2 | 34 (H)Comment: Testing | 23 - 32 mmol/L | EXTERNAL | | | | performed at [facility], [address] | | LAB | | | | [address], | | | | | | [place] [address] | | | | + + + + + + | Anion Gap | 7Comment: Testing | 5 - 20 mmol/L | EXTERNAL | | | | performed at [facility], [address] | | LAB | | | | [address], | | | | | | [place] [address] | | | | + + + + + + | Glucose, | 133 (H)Comment: Testing | 65 - 99 mg/dL | EXTERNAL | | | Fasting | performed at [facility], [address] | | LAB | | | | [address], | | | | | | [place] [address] | | | | + + + + + + | BUN | 29 (H)Comment: Testing | 8 - 25 mg/dL | EXTERNAL | | | | performed at [facility], [address] | | LAB | | | | [address], | | | | | | [place] [address] | | | | + + + + + + | Creatinine | 0.61Comment: Testing | 0.50 - 1.00 | EXTERNAL | | | | performed at [facility], [address] | mg/dL | LAB | | | | [address], | | | | | | [place] [address] | | | | + + + + + + | BUN/Creatin | 48Comment: Testing | | EXTERNAL | | | ine Ratio | performed at [facility], [address] | | LAB | | | | [address], | | | | | | [place] [address] | | | | + + + + + + | Calcium | 8.3 (L)Comment: Testing | 8.5 - 10.2 | EXTERNAL | | | | performed at [facility], [address] | mg/dL | LAB | | | | [facility], | | | | | | [place] [address] | | | | + + + [...] | | | | | | at [facility], [address] | | | | | | [place], | | | | | | [place] [address] | | | | + + + [...] | | Patient | performed at [facility];[address] | | LAB | | | | [address];[place] | | | | | | [address] | | | | + + + [...] | | performed at [facility];[address] | mmol/L | LAB | | | | [address];[place], [place] | | | | | | [address] | | | | + + + [...] | | Fingerstick | performed at [facility];[address] | | LAB | | | | [address] [place];[place] | | | | | | [address] | | | | + + + [...] | | performed at [facility] | | | | | | [address];[place] | | | | | | [address] | | | | + + [...] | | performed at [facility];[address] | | | | | | [address] [facility];[place], [place] | | | | | | [address] | | | | + + + [...] | | performed at [facility];[address] | mmol/L | LAB | | | | [address];[place], [place] | | | | | | [address] | | | | + + + [...] | | performed at [facility];[address] | | LAB | | | | [address];[place] | | | | | | [address] | | | | + + + [...] | | Fingerstick | performed at [facility];[address] | | LAB | | | | [address];[place], [place] | | | | | | [address] [...] | | performed at [facility];[address] | mmol/L | LAB | | | | [address];[place], [place] | | | | | | [address] | | | | + + + [...] | | performed at [facility];[address] | | LAB | | | | [address];[place], [place] | | | | | | [address] | | | | + + + [...] | | performed at [facility];[address] | | LAB | | | | [address];[place] | | | | | | [address] | | | | + + + [...] | | Fingerstick | performed at [facility];[address] | | LAB | | | | [address];[place], [place] | | | | | | [address] | | | | + + + [...] | 1.05 D-E Excursion: 1.76 cm E-F Johnson: 0.10 m/s EPSS: 0.24 | | | [...] TR Vmax: 1.63 m/s | | | Hydraulic Governor Assembler: GD Authenticated by: SANDOVAL KO MD Report [...] BPMR-R: 756.65 msLAAs | | A4C: 23.48 [id number] A-L A4C: 64.39 mlLAESV MOD A4C: 63.04 mlLALs A4C: 7.27 cmAo | | Diam: 3.18 cmAV Cusp: 1.94 cmLA Diam: 3.37 cmLA/Ao: 1.05D-E Excursion: 1.76 | | cmE-F Johnson: 0.10 m/sEPSS: 0.24 cmHR: 76.38 BPMAV maxP.32 mmHgAV meanPG: | | 3.53 mmHgAV Vmax: 1.25 m/Christine Vmean: 0.89 m/Christine VTI: 20.35 cmAVA Vmax: 2.34 | | cm2AVA (VTI): 2.64 xu2TPFX Dopp: 2.21 l/jyam4JJDE Dopp: 4.15 l/minHR: 77.06 | | BPMLVOT [...] maxP.67 mmHgTR Vmax: 1.63 m/s | | Hydraulic Governor Assembler: Asimticated by: Stevan ASKEW Date/Time: 04-20-2014 18:02:29 [...] | |D-E Excursion: 1.76 cm | |E-F Johnson: 0.10 m/s | |EPSS: 0.24 cm | [...] |TR Vmax: 1.63 m/s | | | |Hydraulic Governor Assembler: GD | |Authenticated by: SANDOVAL KO MD [...] | LAB | | | | BY [employer] BACK RESULTS | | | | | | VERIFIEDTesting | | | | | | performed at [facility];[address] | | | | | | [address];[place] | | | | | | [address] | | | | + + + [...] | | | | | [place] [address] | | | | + + [...] [place], | | | | | | [place] [address] | | | | + + + [...] | | performed at [facility] | | LAB | | | | [address] [place] | | | | | | [address] | | | | + + + [...] | | Fingerstick | performed at [facility];[address] | | LAB | | | | [address] [place] | | | | | | [address] | | | | + + + [...] | | performed at [facility], [address] | | LAB | | | | [address], | | | | | | [place] [address] | | | | + + +---- + + + | Non- | 3.57 (L)Comment: Testing | 3.7 0 - 5.10 | EXTERNAL | | | Red Blood | performed at [facility], [address] | M/u L | LAB | | | Cells | [address], | | | | | Counted | [place] [address] | | | | + + +---- + + + | Hemoglobin | 8.9 (L)Comment: Testing | 11. 3 - 15.5 | EXTERNAL | | | | performed at [facility], [address] | g/d L | LAB | | | | [address] [place], | | | | | | [place] [address] | | | | + + +---- + + + | Hematocrit, | 29.8 (L)Comment: Testing | 34. 0 - 46.0 % | EXTERNAL | | | POC | performed at [facility], [address] | | LAB | | [...] | | | | | [place] [address] | | | | + + +---- + + + | MCH | 24.9 (L)Comment: Testing | 27. 0 - 34.0 pg | EXTERNAL | | | | performed at [facility], [address] | | LAB | | | | [address], | | | | | | [place] [address] | | | | + + +---- + + + | MCHC | 29.9 (L)Comment: Testing | 32. 0 - 35.5 | EXTERNAL | | | | performed at [facility], [address] | g/d L | LAB | | | | [address], | | | | | | [place] [address] | | | | + + +---- + + + | RDW-CV | 67.8 (H)Comment: Testing | 37 - 53 fl | EXTERNAL | | | | performed at [facility], [address] | | LAB | | | | [address], | | | | | | [place] [address] | | | | + + +---- + + + | Platelet | 373Comment: Testing | 150 - 400 K/uL | EXTERNAL | | | Count | performed at [facility], [address] | | LAB | | | Plasma | [address], | | | | | | [place] [address] | | | | + + +---- + + + | MPV | 9.3Comment: Testing | fl | EXTERNAL | | | | performed at [facility], [address] | | LAB | | | | [address] [place], | | | | | | [place] [address] | | | | + + +---- + + + | Differentia | MANUALComment: Testing | | EXTERNAL | | | l Type | performed at [facility], [address] | | LAB | | | | [address] [place], | | | | | | [place] [address] | | | | + + +---- + + + | Nucleated | 3 (H)Comment: Testing | /10 0WBC | EXTERNAL | | | Red Blood | performed at [facility], [address] | | LAB | | | Cells | [address] [place], | | | | | | [place] [address] | | | | + + +---- + + + | Segmented | 71Comment: Testing | % | EXTERNAL | | | Neutrophils | performed at [facility], [address] | | LAB | | | Manual | [address] [place], | | | | | | [place] [address] | | | | + + +---- + + + | % Bands | 2Comment: Testing | % | EXTERNAL | | | | performed at [facility], [address] | | LAB | | | | [address], | | | | | | [place] [address] | | | | + + +---- + + + | Lymphocytes | 17Comment: Testing | % | EXTERNAL | | | Manual | performed at [facility], [address] | | LAB | | | | [address], | | | | | | [place] [address] | | | | + + +---- + + + | Monocytes | 9Comment: Testing | % | EXTERNAL | | | Manual | performed at [facility], [address] | | LAB | | | | [address], | | | | | | [place] [address] | | | | + + +---- + + + | Eosinophils | 1Comment: Testing | % | EXTERNAL | | | Manual | performed at [facility], [address] | | LAB | | | | [address] [place], | | | | | | [place] [address] | | | | + + +---- + + + | Absolute | 15.2 (H)Comment: Testing | 1.9 - 7.4 K/uL | EXTERNAL | | | Neutrophils | performed at [facility], [address] | | LAB | | | | [address] [place], | | | | | | [place] [address] | | | | + + +---- + + + | Bands | 0.4 (H)Comment: Testing | 0 - 0.2 K/uL | EXTERNAL | | | Manual | performed at [facility], [address] | | LAB | | | | [address] [place], | | | | | | [place] [address] | | | | + + +---- + + + | Absolute | 3.6Comment: Testing | 1.0 - 3.9 K/uL | EXTERNAL | | | Lymphocytes | performed at [facility], [address] | | LAB | | | | [address] [place], | | | | | | [place] [address] | | | | + + +---- + + + | Absolute | 1.9 (H)Comment: Testing | 0 - 0.8 K/uL | EXTERNAL | | | Monocytes | performed at [facility], [address] | | LAB | | | | [address], | | | | | | [place] [address] | | | | + + +---- + + + | Absolute | 0.2Comment: Testing | 0 - 0.5 K/uL | EXTERNAL | | | Eosinophils | performed at [facility], [address] | | LAB | | | | [place] [place], | | | | | | [place] [address] | | | | + + +---- + + + | RBC | 2+Comment: | | EXTERNAL | | | Morphology | ANISO1+POIK2+HYPO1+MICRO | | LAB | | | | 1+TARGETNORMAL PLT | | | | | | MORPHTesting performed | | | | | | at [facility], [address] | | | | | | [place], | | | | | | [place] [address] | | | | | |1+ | | | | | |MICRO | | | | | |1+ | | | | | |TARGET | | | | | |NORMAL PLT MORPH | | | | | |Testing performed at [facility], [address] [place] [address], [place] [address] | | | | | | | | | | + + +---- + + + | Differentia | SMUDGE CELLSComment: | | EXTERNAL | | | l Comments | Testing performed at | | LAB | | | | [facility], [address] [facility] | | | | | | [place] | | | | | | [address] | | | | + + +---- [...] | | performed at [facility];[address] | mmol/L | LAB | | | | [address] [place] | | | | | | [address] | | | | + + + [...] | | | | | | [place] [address] | | | | + + + + + + | T3, Total | 102Comment: Testing | 80 - 200 ng/dL | EXTERNAL | | | | performed at [facility], [address] | | LAB | | | | [address] | | | | | | [place] [address] | | | | + + + [...] | | performed at [facility];[address] | | LAB | | | | [address];[place], [place] | | | | | | [address] | | | | + + + [...] | | | | | at [facility];[address] [place] [address] | | | | | | [facility];[place] [address] | | | | + + + [...] | | performed at [facility] | | LAB | | | | [address] [place] | | | | | | [address] | | | | + + + [...] | | performed at [facility];[address] | | | | | | [address] [place] | | | | | | [address] | | | | + + + [...] [place] | | | | | | [address] | | | | + + + + + + | HEP B | NON REACTIVEComment: | | EXTERNAL | | | SURFACE | Testing performed at | | LAB | | | ANTIBODY | [facility], [address] | | | | | | [place] | | | | | | [address] | | | | + + + + + + | HEP B CORE | NON REACTIVEComment: | | EXTERNAL | | | IgM | Testing performed at | | LAB | | | | [facility], [address] | | | | | | [place] | | | | | | [address] | | | | + + + + + + | HCV Ab | NON REACTIVEComment: | | EXTERNAL | | | | Testing performed at | | LAB | | | | [facility], [address] | | | | | | [place] | | | | | | [address] | | | | + + + + + + | Hepatitis | No serologic evidence of | | EXTERNAL | | | Interp.: | HAV, HBV, or HCV | | LAB | | | | infection.Comment: | | | | | | Testing performed at | | | | | | [facility], [address] [facility] | | | | | | [place] | | | | | | [address] | | | | + + + [...] | | | | | | P,CHROMATIN, PLASTIC SURGERY NURSE, SM | | | | | | PLASTIC SURGERY NURSE, SCL-70, CENTROMERE | | | | | | B, SSA, SSB AND SHAZIA-1) | | | | | | WASPERFORMED AND NO | | | | | | AUTOANTIBODIES WERE | | | | | | DETECTED.Testing | | | | | | performed at [facility], [address] | | | | | | [facility] | | | | | | [place] [address] | | | | + + + + + + | ANCA Screen | <1:20Comment: REFERENCE | | EXTERNAL | | | | RANGE: <1:20Testing | | LAB | | | | performed at [facility], [address] | | | | | | [place] | | | | | | [place] [address] | | | | + + + [...] | | | | sting performed at [facility], | | | | | | [address] | | | | | | [place] [address] | | | | + + + [...] | | | | | | at [facility], [address] | | | | | | [place] | | | | | | [address] | | | | + + + [...] | | Patient | performed at [facility];[address] | | LAB | | | | [place] | | | | | | [address] | | | | + + + [...] | | performed at [facility] | | | | | | [facility];[place], [place] | | | | | | [address] | | | | + + + [...] | | | FACTOR | performed at [facility], [address] | | LAB | | | | [address], | | | | | | [place] [address] | | | | + + + [...] | | performed at [facility], [address] | uIU/mL | LAB | | | | [address] [place] [place], | | | | | | [place] [address] | | | | + + + [...] | | | (REF) | performed at [facility], [address] | | LAB | | | | [place], | | | | | | [place] [address] | | | | + + + [...] | | | | | [place] [address] | | | | + + + [...] | | | | | [place] [address] | | | | + + + [...] + + | Hemoglobin | 5.4Comment: [place] | 4.0 - 6.0 % | EXTERNAL [...] | | | | | performed at [facility], [address] | | | | | | [address] [facility], | | | | | | [place] [address] | | | | + + + [...] | | | | | performed at [facility], [address] | | | | | | [facility], | | | | | | [place] [address] | | | | + + + [...] | | performed at [facility] | | LAB | | | | [address] [place], [place] | | | | | | [address] | | | | + + + [...] | | | | | [place] [address] | | | | + + + + + + | Albumin | 2.2 (L)Comment: Testing | 3.6 - 5.0 g/dL | EXTERNAL | | | | performed at [facility], [address] | | LAB | | | | [address], | | | | | | [place] [address] | | | | + + + + + + | Bilirubin | 0.5Comment: Testing | 0.1 - 1.5 mg/dL | EXTERNAL | | | Total | performed at [facility], [address] | | LAB | | | | [address], | | | | | | [place] [address] | | | | + + + + + + | Bilirubin | 0.1Comment: Testing | 0.0 - 0.3 mg/dL | EXTERNAL | | | Direct | performed at [facility], [address] | | LAB | | | | [address], | | | | | | [place] [address] | | | | + + + + + + | ALP, | 112Comment: Testing | 35 - 115 U/L | EXTERNAL | | | External | performed at [facility], [address] | | LAB | | | | [address], | | | | | | [place] [address] | | | | + + + + + + | AST | 31Comment: Testing | 10 - 45 U/L | EXTERNAL | | | | performed at [facility], [address] | | LAB | | | | [address], | | | | | | [place] [address] | | | | + + + + + + | ALT | 15Comment: Testing | 10 - 65 U/L | EXTERNAL | | | | performed at [facility], [address] | | LAB | | | | [place], | | | | | | [place] [address] | | | | + + + [...] | | | | | [place] [address] | | | | + + + + + + | Triglycerid | 398 (H)Comment: Testing | mg/dL | EXTERNAL | | | es | performed at [facility], [address] | | LAB | | | | [address], | | | | | | [place] [address] | | | | + + + + + + | HDL | 48Comment: Testing | mg/dL | EXTERNAL | | | | performed at [facility], [address] | | LAB | | | | [address], | | | | | | [place] [address] | | | | + + + + + + | LDL, | 35Comment: Testing | mg/dL | EXTERNAL | | | Calculated | performed at [facility], [address] | | LAB | | | | [place], | | | | | | [place] [address] | | | | + + + [...] | | | | | [place] [address] | | | | + + + + + + | K | 3.1 (L)Comment: Testing | 3.5 - 4.9 | EXTERNAL | | | | performed at [facility], [address] | mmol/L | LAB | | | | [place], | | | | | | [place] [address] | | | | + + + + + + | Cl | 108Comment: Testing | 99 - 109 mmol/L | EXTERNAL | | | | performed at [facility], [address] | | LAB | | | | [address], | | | | | | [place] [address] | | | | + + + + + + | CO2 | 31Comment: Testing | 23 - 32 mmol/L | EXTERNAL | | | | performed at [facility], [address] | | LAB | | | | [address], | | | | | | [place] [address] | | | | + + + + + + | Anion Gap | 8Comment: Testing | 5 - 20 mmol/L | EXTERNAL | | | | performed at [facility], [address] | | LAB | | | | [address], | | | | | | [place] [address] | | | | + + + + + + | Glucose, | 135 (H)Comment: Testing | 65 - 99 mg/dL | EXTERNAL | | | Fasting | performed at [facility], [address] | | LAB | | | | [address], | | | | | | [place] [address] | | | | + + + + + + | BUN | 25Comment: Testing | 8 - 25 mg/dL | EXTERNAL | | | | performed at [facility], [address] | | LAB | | | | [address], | | | | | | [place] [address] | | | | + + + + + + | Creatinine | 0.58Comment: Testing | 0.50 - 1.00 | EXTERNAL | | | | performed at [facility], [address] | mg/dL | LAB | | | | [address], | | | | | | [place] [address] | | | | + + + + + + | BUN/Creatin | 43Comment: Testing | | EXTERNAL | | | ine Ratio | performed at [facility], [address] | | LAB | | | | [address], | | | | | | [place] [address] | | | | + + + + + + | Calcium | 7.8 (L)Comment: Testing | 8.5 - 10.2 | EXTERNAL | | | | performed at [facility], [address] | mg/dL | LAB | | | | [place], | | | | | | [place] [address] | | | | + + + [...] | | | | | [place] [address] | | | | + + + [...] ALBICANSAbnormal | | | Testing performed at [facility], [address] [facility] [place] | | | [address] | | + + + + +---------+ [...] | | Fingerstick | performed at [facility];[address] | | LAB | | | | [address];[place] | | | | | | [address] | | | | + + + [...] GROWTH | | | Testing performed at [facility], [address] | | | [place] [address] | | + + + + +---------+ [...] | | tubes are noted on the machinist linotype image. | | + + + + [...] and endotracheal tubes are noted on the machinist linotype image. IMPRESSION: 1. No acute | | [...] and endotracheal tubes are noted on the machinist linotype im age. | | | |IMPRESSION: | [...] PORT | | | Testing performed at [facility];[address];[place] [address] CULTURE | | | NO GROWTH | | | Testing performed at [facility], [address] [facility], [place], [place] | | | [address] | | + + + + +---------+ [...] | | | | | | at [facility], [address] | | | | | | [place] | | | | | | [address] | | | | + + + [...] | | performed at [facility];[address] | | LAB | | | | [address];[place], [place] | | | | | | [address] | | | | + + + [...] | | performed at [facility];[address];[place], [place] | | | | | | [address] | | | | + + + [...] | | performed at [facility];[address] | mmol/L | LAB | | | | [address];[place] | | | | | | [address] | | | | + + + + + + | K | 4.1Comment: SLT | 3.5 - 4.9 | EXTERNAL | | | | HEMOLYSISTesting | mmol/L | LAB | | | | performed at [facility];[address] | | | | | | [address];[place] | | | | | | [address] | | | | + + + + + + | Cl | 113 (H)Comment: Testing | 99 - 109 mmol/L | EXTERNAL | | | | performed at [facility];[address] | | LAB | | | | [address];[place] | | | | | | [address] | | | | + + + + + + | CO2 | 29Comment: Testing | 23 - 32 mmol/L | EXTERNAL | | | | performed at [facility];[address] | | LAB | | | | [address];[place] | | | | | | [address] | | | | + + + + + + | Anion Gap | 11Comment: Testing | 5 - 20 mmol/L | EXTERNAL | | | | performed at [facility];[address] | | LAB | | | | [address];[place] | | | | | | [address] | | | | + + + + + + | Glucose, | 120 (H)Comment: Testing | 65 - 99 mg/dL | EXTERNAL | | | Fasting | performed at [facility];[address] | | LAB | | | | [address];[place] | | | | | | [address] | | | | + + + + + + | BUN | 25Comment: Testing | 8 - 25 mg/dL | EXTERNAL | | | | performed at [facility];[address] | | LAB | | | | [address];[place] | | | | | | [address] | | | | + + + + + + | Creatinine | 0.72Comment: Testing | 0.50 - 1.00 | EXTERNAL | | | | performed at [facility];[address] | mg/dL | LAB | | | | [address];[place] | | | | | | [address] | | | | + + + + + + | BUN/Creatin | 35Comment: Testing | | EXTERNAL | | | ine Ratio | performed at [facility];[address] | | LAB | | | | [address];[place] | | | | | | [address] | | | | + + + + + + | Calcium | 8.3 (L)Comment: Testing | 8.5 - 10.2 | EXTERNAL | | | | performed at [facility];[address] | mg/dL | LAB | | | | [address];[place], [place] | | | | | | [address] | | | | + + + [...] | | | | | at [facility];[address];[place], [place] [address] | | | | + + + [...] LAC | | | Testing performed at [facility];8 | | | [address];[place] [address] CULTURE | | | NO GROWTH | | | Testing performed at [facility], [address] [facility], [place], [place] | | | [address] | | + + + + +---------+ [...] | | Fingerstick | performed at [facility];[address] | | LAB | | | | [address];[place] | | | | | | [address] | | | | + + + [...] | | performed at [facility] | | | | | | [facility];[place], [place] | | | | | | [address] | | | | + + + [...] | | Fingerstick | performed at [facility];[address] | | LAB | | | | [address];[place] | | | | | | [address] | | | | + + + [...] | EXTERNAL LAB | | performed at [facility];[address] [facility];[place] [address] 027 NAP1 BI | | | 027 NAP1 BI PRESUMPTIVE NEGATIVE | | | Detection of 027 NAP1 BI strains of C. difficile is presumptive and | | | for epidemiological purposes and not intended to guide or monitor | | | treatment for C. difficile infections. Testing performed at [facility];8 | | | [facility];[place] [address] | | + + + + +---------+ [...] | | performed at [facility];888 | mmol/L | LAB | | | | [address];[place], [place] | | | | | | [address] | | | | + + + [...] | | performed at [facility] | | LAB | | | | [address];[place] | | | | | | [address] | | | | + + + [...] | | performed at [facility];[address] | | LAB | | | | [address];[place], [place] | | | | | | [address] | | | | + + + [...] | | Fingerstick | performed at [facility];[address] | | LAB | | | | [address];[place] | | | | | | [address] | | | | + + + [...] | | performed at [facility] | | | | | | [facility];[place] | | | | | | [address] | | | | + + + [...] | | performed at [facility], [address] | | LAB | | | | [address], | | | | | | [place] [address] | | | | + + +---- + + + | Non- | 3.63 (L)Comment: Testing | 3.7 0 - 5.10 | EXTERNAL | | | Red Blood | performed at [facility], [address] | M/u L | LAB | | | Cells | [address], | | | | | Counted | [place] [address] | | | | + + +---- + + + | Hemoglobin | 9.7 (L)Comment: Testing | 11. 3 - 15.5 | EXTERNAL | | | | performed at [facility], [address] | g/d L | LAB | | | | [address], | | | | | | [place] [address] | | | | + + +---- + + + | Hematocrit, | 30.8 (L)Comment: Testing | 34. 0 - 46.0 % | EXTERNAL | | | POC | performed at [facility], [address] | | LAB | | | | [address], | | | | | | [place] [address] | | | | + + +---- + + + | MCV | 84.8Comment: Testing | 80. 0 - 100.0 fl | EXTERNAL | | | | performed at [facility], [address] | | LAB | | | | [address], | | | | | | [place] [address] | | | | + + +---- + + + | MCH | 26.8 (L)Comment: Testing | 27. 0 - 34.0 pg | EXTERNAL | | | | performed at [facility], [address] | | LAB | | | | [address], | | | | | | [place] [address] | | | | + + +---- + + + | MCHC | 31.6 (L)Comment: Testing | 32. 0 - 35.5 | EXTERNAL | | | | performed at [facility], [address] | g/d L | LAB | | | | [address], | | | | | | [place] [address] | | | | + + +---- + + + | RDW-CV | 68.3 (H)Comment: Testing | 37 - 53 fl | EXTERNAL | | | | performed at [facility], [address] | | LAB | | | | [address], | | | | | | [place] [address] | | | | + + +---- + + + | Platelet | 388Comment: Testing | 150 - 400 K/uL | EXTERNAL | | | Count | performed at [facility], [address] | | LAB | | | Plasma | [address], | | | | | | [place] [address] | | | | + + +---- + + + | MPV | 9.6Comment: Testing | fl | EXTERNAL | | | | performed at [facility], [address] | | LAB | | | | [address], | | | | | | [place] [address] | | | | + + +---- + + + | Differentia | MANUALComment: Testing | | EXTERNAL | | | l Type | performed at [facility], [address] | | LAB | | | | [address], | | | | | | [place] [address] | | | | + + +---- + + + | Nucleated | 1 (H)Comment: Testing | /10 0WBC | EXTERNAL | | | Red Blood | performed at [facility], [address] | | LAB | | | Cells | [address], | | | | | | [place] [address] | | | | + + +---- + + + | Segmented | 77Comment: Testing | % | EXTERNAL | | | Neutrophils | performed at [facility], [address] | | LAB | | | Manual | [address], | | | | | | [place] [address] | | | | + + +---- + + + | % Bands | 6Comment: Testing | % | EXTERNAL | | | | performed at [facility], [address] | | LAB | | | | [address], | | | | | | [place] [address] | | | | + + +---- + + + | % | 2Comment: Testing | % | EXTERNAL | | | Metamyelocy | performed at [facility], [address] | | LAB | | | [address] | [address], | | | | | | [place] [address] | | | | + + +---- + + + | Lymphocytes | 12Comment: Testing | % | EXTERNAL | | | Manual | performed at [facility], [address] | | LAB | | | | [address], | | | | | | [place] [address] | | | | + + +---- + + + | Monocytes | 3Comment: Testing | % | EXTERNAL | | | Manual | performed at [facility], [address] | | LAB | | | | [address], | | | | | | [place] [address] | | | | + + +---- + + + | Absolute | 14.0 (H)Comment: Testing | 1.9 - 7.4 K/uL | EXTERNAL | | | Neutrophils | performed at [facility], [address] | | LAB | | | | [address], | | | | | | [place] [address] | | | | + + +---- + + + | Bands | 1.1 (H)Comment: Testing | 0 - 0.2 K/uL | EXTERNAL | | | Manual | performed at [facility], [address] | | LAB | | | | [address], | | | | | | [place] [address] | | | | + + +---- + + + | Absolute | 0.4 (H)Comment: Testing | K/u L | EXTERNAL | | | Metamyelocy | performed at [facility], [address] | | LAB | | | [address] | [address], | | | | | | [place] [address] | | | | + + +---- + + + | Absolute | 2.2Comment: Testing | 1.0 - 3.9 K/uL | EXTERNAL | | | Lymphocytes | performed at [facility], [address] | | LAB | | | | [address], | | | | | | [place] [address] | | | | + + +---- + + + | Absolute | 0.5Comment: Testing | 0 - 0.8 K/uL | EXTERNAL | | | Monocytes | performed at [facility], [address] | | LAB | | | | [address], | | | | | | [place] [address] | | | | + + +---- + + + | RBC | 2+Comment: | | EXTERNAL | | | Morphology | ANISO1+POIK2+HYPO1+MICRO | | LAB | | | | 1+TARGETNORMAL PLT | | | | | | MORPHTesting performed | | | | | | at [facility], [address] | | | | | | [facility], | | | | | | [place] [address] | | | | | |1+ | | | | | |MICRO | | | | | |1+ | | | | | |TARGET | | | | | |NORMAL PLT MORPH | | | | | |Testing performed at [facility], [address] [place] [address] | | | | | | | [...] | | | | | [place] [address] | | | | + + + [...] [address], | | | | | | [place] [address] | | | | + + + [...] | | | | | [place] [address] | | | | + + + + + + | K | 3.1 (L)Comment: Testing | 3.5 - 4.9 | EXTERNAL | | | | performed at [facility], [address] | mmol/L | LAB | | | | [address], | | | | | | [place] [address] | | | | + + + + + + | Cl | 105Comment: Testing | 99 - 109 mmol/L | EXTERNAL | | | | performed at [facility], [address] | | LAB | | | | [address], | | | | | | [place] [address] | | | | + + + + + + | CO2 | 29Comment: Testing | 23 - 32 mmol/L | EXTERNAL | | | | performed at [facility], [address] | | LAB | | | | [address], | | | | | | [place] [address] | | | | + + + + + + | Anion Gap | 9Comment: Testing | 5 - 20 mmol/L | EXTERNAL | | | | performed at [facility], [address] | | LAB | | | | [address], | | | | | | [place] [address] | | | | + + + + + + | Glucose, | 159 (H)Comment: Testing | 65 - 99 mg/dL | EXTERNAL | | | Fasting | performed at [facility], [address] | | LAB | | | | [address], | | | | | | [place] [address] | | | | + + + + + + | BUN | 17Comment: Testing | 8 - 25 mg/dL | EXTERNAL | | | | performed at [facility], [address] | | LAB | | | | [address], | | | | | | [place] [address] | | | | + + + + + + | Creatinine | 0.41 (L)Comment: Testing | 0.50 - 1.00 | EXTERNAL | | | | performed at [facility], [address] | mg/dL | LAB | | | | [address], | | | | | | [place] [address] | | | | + + + + + + | BUN/Creatin | 41Comment: Testing | | EXTERNAL | | | ine Ratio | performed at [facility], [address] | | LAB | | | | [address], | | | | | | [place] [address] | | | | + + + + + + | Calcium | 7.8 (L)Comment: Testing | 8.5 - 10.2 | EXTERNAL | | | | performed at [facility], [address] | mg/dL | LAB | | | | [facility], | | | | | | [place] [address] | | | | + + + [...] W | | | | | | [facility], | | | | | | [place] [address] | | | | + + + [...] | | Fingerstick | performed at [facility];[address] | | LAB | | | | [address];[place] | | | | | | [address] | | | | + + + [...] | | Fingerstick | performed at [facility];[address] | | LAB | | | | [address];[place], [place] | | | | | | [address] | | | | + + + [...] | | performed at [facility];888 | mmol/L | LAB | | | | [address];[place] | | | | | | [address] | | | | + + + [...] | | Fingerstick | performed at [facility];[address] | | LAB | | | | [address];[place], [place] | | | | | | [address] | | | | + + + [...] | | Fingerstick | performed at [facility];[address] | | LAB | | | | [address];[place], [place] | | | | | | [address] | | | | + + + [...] | | performed at [facility] | | | | | | [facility], [place] | | | | | | [address] | | | | + + + [...] | | performed at [facility], [address] | | LAB | | | | [address], | | | | | | [place] [address] | | | | + + +---- + + + | Non- | 3.55 (L)Comment: Testing | 3.7 0 - 5.10 | EXTERNAL | | | Red Blood | performed at [facility], [address] | M/u L | LAB | | | Cells | [address], | | | | | Counted | [place] [address] | | | | + + +---- + + + | Hemoglobin | 8.8 (L)Comment: RESULT | 11. 3 - 15.5 | EXTERNAL | | | | VERIFIEDTesting | g/d L | LAB | | | | performed at [facility], [address] | | | | | | [address], | | | | | | [place] [address] | | | | + + +---- + + + | Hematocrit, | 29.5 (L)Comment: RESULT | 34. 0 - 46.0 % | EXTERNAL | | | POC | VERIFIEDTesting | | LAB | | | | performed at [facility], [address] | | | | | | [address], | | | | | | [place] [address] | | | | + + +---- + + + | MCV | 83.2Comment: Testing | 80. 0 - 100.0 fl | EXTERNAL | | | | performed at [facility], [address] | | LAB | | | | [address], | | | | | | [place] [address] | | | | + + +---- + + + | MCH | 24.8 (L)Comment: Testing | 27. 0 - 34.0 pg | EXTERNAL | | | | performed at [facility], [address] | | LAB | | | | [address], | | | | | | [place] [address] | | | | + + +---- + + + | MCHC | 29.8 (L)Comment: Testing | 32. 0 - 35.5 | EXTERNAL | | | | performed at [facility], [address] | g/d L | LAB | | | | [address], | | | | | | [place] [address] | | | | + + +---- + + + | RDW-CV | 64.8 (H)Comment: Testing | 37 - 53 fl | EXTERNAL | | | | performed at [facility], [address] | | LAB | | | | [address], | | | | | | [place] [address] | | | | + + +---- + + + | Platelet | 397Comment: Testing | 150 - 400 K/uL | EXTERNAL | | | Count | performed at [facility], [address] | | LAB | | | Plasma | [address], | | | | | | [place] [address] | | | | + + +---- + + + | MPV | 9.2Comment: Testing | fl | EXTERNAL | | | | performed at [facility], [address] | | LAB | | | | [address], | | | | | | [place] [address] | | | | + + +---- + + + | Differentia | MANUALComment: Testing | | EXTERNAL | | | l Type | performed at [facility], [address] | | LAB | | | | [address], | | | | | | [place] [address] | | | | + + +---- + + + | Nucleated | 2 (H)Comment: Testing | /10 0WBC | EXTERNAL | | | Red Blood | performed at [facility], [address] | | LAB | | | Cells | [address], | | | | | | [place] [address] | | | | + + +---- + + + | Segmented | 72Comment: Testing | % | EXTERNAL | | | Neutrophils | performed at [facility], [address] | | LAB | | | Manual | [address], | | | | | | [place] [address] | | | | + + +---- + + + | % | 2Comment: Testing | % | EXTERNAL | | | Metamyelocy | performed at [facility], [address] | | LAB | | | [address] | [address], | | | | | | [place] [address] | | | | + + +---- + + + | Lymphocytes | 15Comment: Testing | % | EXTERNAL | | | Manual | performed at [facility], [address] | | LAB | | | | [address], | | | | | | [place] [address] | | | | + + +---- + + + | Monocytes | 10Comment: Testing | % | EXTERNAL | | | Manual | performed at [facility], [address] | | LAB | | | | [address], | | | | | | [place] [address] | | | | + + +---- + + + | Eosinophils | 1Comment: Testing | % | EXTERNAL | | | Manual | performed at [facility], [address] | | LAB | | | | [address], | | | | | | [place] [address] | | | | + + +---- + + + | Absolute | 16.5 (H)Comment: Testing | 1.9 - 7.4 K/uL | EXTERNAL | | | Neutrophils | performed at [facility], [address] | | LAB | | | | [address], | | | | | | [place] [address] | | | | + + +---- + + + | Absolute | 0.5 (H)Comment: Testing | K/u L | EXTERNAL | | | Metamyelocy | performed at [facility], [address] | | LAB | | | [address] | [address], | | | | | | [place] [address] | | | | + + +---- + + + | Absolute | 3.4Comment: Testing | 1.0 - 3.9 K/uL | EXTERNAL | | | Lymphocytes | performed at [facility], [address] | | LAB | | | | [address], | | | | | | [place] [address] | | | | + + +---- + + + | Absolute | 2.3 (H)Comment: Testing | 0 - 0.8 K/uL | EXTERNAL | | | Monocytes | performed at [facility], [address] | | LAB | | | | [address], | | | | | | [place] [address] | | | | + + +---- + + + | Absolute | 0.2Comment: Testing | 0 - 0.5 K/uL | EXTERNAL | | | Eosinophils | performed at [facility], [address] | | LAB | | | | [address], | | | | | | [place] [address] | | | | + + +---- + + + | RBC | 2+Comment: | | EXTERNAL | | | Morphology | ANISO1+POIK2+HYPO1+TARGE | | LAB | | | | TNORMAL PLT MORPHTesting | | | | | | performed at [facility], [address] | | | | | | [address], | | | | | | [place] [address] | | | | | |HYPO | | | | | |1+ | | | | | |TARGET | | | | | |NORMAL PLT MORPH | | | | | |Testing performed at [facility], [address] [place] [address] | | | | | | | [...] | | | | | [place] [address] | | | | + + + [...] | | | | | [place] [address] | | | | + + + [...] | | | | | [place] [address] | | | | + + + + + + | K | 3.2 (L)Comment: Testing | 3.5 - 4.9 | EXTERNAL | | | | performed at [facility], [address] | mmol/L | LAB | | | | [address], | | | | | | [place] [address] | | | | + + + + + + | Cl | 113 (H)Comment: Testing | 99 - 109 mmol/L | EXTERNAL | | | | performed at [facility], [address] | | LAB | | | | [address], | | | | | | [place] [address] | | | | + + + + + + | CO2 | 30Comment: Testing | 23 - 32 mmol/L | EXTERNAL | | | | performed at [facility], [address] | | LAB | | | | [address], | | | | | | [place] [address] | | | | + + + + + + | Anion Gap | 7Comment: Testing | 5 - 20 mmol/L | EXTERNAL | | | | performed at [facility], [address] | | LAB | | | | [address], | | | | | | [place] [address] | | | | + + + + + + | Glucose, | 133 (H)Comment: Testing | 65 - 99 mg/dL | EXTERNAL | | | Fasting | performed at [facility], [address] | | LAB | | | | [address], | | | | | | [place] [address] | | | | + + + + + + | BUN | 22Comment: Testing | 8 - 25 mg/dL | EXTERNAL | | | | performed at [facility], [address] | | LAB | | | | [address], | | | | | | [place] [address] | | | | + + + + + + | Creatinine | 0.68Comment: Testing | 0.50 - 1.00 | EXTERNAL | | | | performed at [facility], [address] | mg/dL | LAB | | | | [address], | | | | | | [place] [address] | | | | + + + + + + | BUN/Creatin | 32Comment: Testing | | EXTERNAL | | | ine Ratio | performed at [facility], [address] | | LAB | | | | [address], | | | | | | [place] [address] | | | | + + + + + + | Calcium | 7.8 (L)Comment: Testing | 8.5 - 10.2 | EXTERNAL | | | | performed at [facility], [address] | mg/dL | LAB | | | | [address], | | | | | | [place] [address] | | | | + + [...] | | | | | | at [facility], [address] | | | | | | [address] [facility], | | | | | | [place] [address] | | | | + + + [...] | | Fingerstick | performed at [facility];[address] | | LAB | | | | [address];[place], [place] | | | | | | [address] | | | | + + + [...] | | performed at [facility];888 | mmol/L | LAB | | | | [address];[place], [place] | | | | | | [address] | | | | + + + [...] | | performed at [facility];[address] | | LAB | | | | [address];[place] | | | | | | [address] [...] | | performed at [facility];[address] | | LAB | | | | [address];[place] | | | | | | [address] | | | | + + + [...] | | Fingerstick | performed at [facility];[address] | | LAB | | | | [address];[place] | | | | | | [address] | | | | + + + [...] | | performed at [facility];[address] | mmol/L | LAB | | | | [address];[place] | | | | | | [address] | | | | + + + [...] | | performed at [facility] | | | | | | [facility];[place], [place] | | | | | | [address] | | | | + + + [...] | | Fingerstick | performed at [facility];[address] | | LAB | | | | [address];[place], [place] | | | | | | [address] | | | | + + + [...] | | Fingerstick | performed at [facility];[address] | | LAB | | | | [address];[place] | | | | | | [address] | | | | + + + [...] | | performed at [facility];[address] | | | | | | [address];[place] | | | | | | [address] | | | | + + + [...] | | performed at [facility];[address] | | LAB | | | | [address];[place] | | | | | | [address] | | | | + + + + + + | Non- | 3.78Comment: Testing | 3.70 - 5.10 | EXTERNAL | | | Red Blood | performed at [facility];[address] | M/uL | LAB | | | Cells | [address];[place] | | | | | Counted | [address] | | | | + + + + + + | Hemoglobin | 9.2 (L)Comment: Testing | 11.3 - 15.5 | EXTERNAL | | | | performed at [facility];[address] | g/dL | LAB | | | | [address];[place] | | | | | | [address] | | | | + + + + + + | Hematocrit, | 30.7 (L)Comment: Testing | 34.0 - 46.0 % | EXTERNAL | | | POC | performed at [facility];[address] | | LAB | | | | [address];[place] | | | | | | [address] | | | | + + + + + + | MCV | 81.2Comment: Testing | 80.0 - 100.0 fl | EXTERNAL | | | | performed at [facility];[address] | | LAB | | | | [address];[place] | | | | | | [address] | | | | + + + + + + | MCH | 24.2 (L)Comment: Testing | 27.0 - 34.0 pg | EXTERNAL | | | | performed at [facility];[address] | | LAB | | | | [address];[place] | | | | | | [address] | | | | + + + + + + | MCHC | 29.8 (L)Comment: Testing | 32.0 - 35.5 | EXTERNAL | | | | performed at [facility];888 | g/dL | LAB | | | | [address];[place] | | | | | | [address] | | | | + + + + + + | RDW-CV | 63.4 (H)Comment: Testing | 37 - 53 fl | EXTERNAL | | | | performed at [facility];[address] | | LAB | | | | [address];[place] | | | | | | [address] | | | | + + + + + + | Platelet | 385Comment: Testing | 150 - 400 K/uL | EXTERNAL | | | Count | performed at [facility];[address] | | LAB | | | Plasma | [address];[place] | | | | | | [address] | | | | + + + + + + | MPV | 9.1Comment: Testing | fl | EXTERNAL | | | | performed at [facility];[address] | | LAB | | | | [address];[place] | | | | | | [address] | | | | + + + + + + | Differentia | MANUALComment: Testing | | EXTERNAL | | | l Type | performed at [facility];[address] | | LAB | | | | [address];[place] | | | | | | [address] | | | | + + + + + + | Segmented | 83Comment: Testing | % | EXTERNAL | | | Neutrophils | performed at [facility];[address] | | LAB | | | Manual | [address];[place] | | | | | | [address] | | | | + + + + + + | % Bands | 2Comment: Testing | % | EXTERNAL | | | | performed at [facility];[address] | | LAB | | | | [address];[place] | | | | | | [address] | | | | + + + + + + | % | 1Comment: Testing | % | EXTERNAL | | | Metamyelocy | performed at [facility];[address] | | LAB | | | [address]ros | [address];[place] | | | | | | [address] | | | | + + + + + + | Lymphocytes | 6Comment: Testing | % | EXTERNAL | | | Manual | performed at [facility];[address] | | LAB | | | | [address];[place] | | | | | | [address] | | | | + + + + + + | Monocytes | 8Comment: Testing | % | EXTERNAL | | | Manual | performed at [facility];[address] | | LAB | | | | [address];[place] | | | | | | [address] | | | | + + + + + + | Absolute | 15.9 (H)Comment: Testing | 1.9 - 7.4 K/uL | EXTERNAL | | | Neutrophils | performed at [facility];[address] | | LAB | | | | [address];[place] | | | | | | [address] | | | | + + + + + + | Bands | 0.4 (H)Comment: Testing | 0 - 0.2 K/uL | EXTERNAL | | | Manual | performed at [facility];[address] | | LAB | | | | [address];[place] | | | | | | [address] | | | | + + + + + + | Absolute | 0.2 (H)Comment: Testing | K/uL | EXTERNAL | | | Metamyelocy | performed at [facility];[address] | | LAB | | | [address] | [address];[place] | | | | | | [address] | | | | + + + + + + | Absolute | 1.2Comment: Testing | 1.0 - 3.9 K/uL | EXTERNAL | | | Lymphocytes | performed at [facility];[address] | | LAB | | | | [address];[place] | | | | | | [address] | | | | + + + + + + | Absolute | 1.5 (H)Comment: Testing | 0 - 0.8 K/uL | EXTERNAL | | | Monocytes | performed at [facility];[address] | | LAB | | | | [address];[place] | | | | | | [address] | | | | + + + + + + | Platelet | ADEQUATEComment: Testing | | EXTERNAL | | | Estimate | performed at [facility];[address] | | LAB | | | | [facility];[place] | | | | | | [address] | | | | + + + + + + | RBC | 1+Comment: | | EXTERNAL | | | Morphology | ANISO1+HYPO1+POIK1+TARGE | | LAB | | | | TNORMAL PLT MORPHTesting | | | | | | performed at [facility];[address] | | | | | | [facility];[place] | | | | | | [address] | | | | | |POIK | | | | | |1+ | | | | | |TARGET | | | | | |NORMAL PLT MORPH | | | | | |Testing performed at [facility];[address] [facility];[place] [address] | | | | | | | [...] | | performed at [facility];[address] | | LAB | | | | [address];[place] | | | | | | [address] | | | | + + + [...] | | performed at [facility];[address] | | LAB | | | | [address];[place], [place] | | | | | | [address] | | | | + + + [...] | | performed at [facility];[address] | mmol/L | LAB | | | | [address];[place] | | | | | | [address] | | | | + + + + + + | K | 3.1 (L)Comment: Testing | 3.5 - 4.9 | EXTERNAL | | | | performed at [facility];[address] | mmol/L | LAB | | | | [address];[place] | | | | | | [address] | | | | + + + + + + | Cl | 114 (H)Comment: Testing | 99 - 109 mmol/L | EXTERNAL | | | | performed at [facility];[address] | | LAB | | | | [address];[place] | | | | | | [address] | | | | + + + + + + | CO2 | 31Comment: Testing | 23 - 32 mmol/L | EXTERNAL | | | | performed at [facility];[address] | | LAB | | | | [address];[place] | | | | | | [address] | | | | + + + + + + | Anion Gap | 9Comment: Testing | 5 - 20 mmol/L | EXTERNAL | | | | performed at [facility];[address] | | LAB | | | | [address];[place] | | | | | | [address] | | | | + + + + + + | Glucose, | 163 (H)Comment: Testing | 65 - 99 mg/dL | EXTERNAL | | | Fasting | performed at [facility];[address] | | LAB | | | | [address];[place] | | | | | | [address] | | | | + + + + + + | BUN | 20Comment: Testing | 8 - 25 mg/dL | EXTERNAL | | | | performed at [facility];[address] | | LAB | | | | [address];[place] | | | | | | [address] | | | | + + + + + + | Creatinine | 0.96Comment: Testing | 0.50 - 1.00 | EXTERNAL | | | | performed at [facility];[address] | mg/dL | LAB | | | | [address];[place] | | | | | | [address] | | | | + + + + + + | BUN/Creatin | 21Comment: Testing | | EXTERNAL | | | ine Ratio | performed at [facility];888 | | LAB | | | | [address];[place] | | | | | | [address] | | | | + + + + + + | Calcium | 7.5 (L)Comment: Testing | 8.5 - 10.2 | EXTERNAL | | | | performed at [facility];888 | mg/dL | LAB | | | | [address];[place] | | | | | | [address] | | | | + + + [...] | | | | | at [facility];[address] | | | | | | [address];[place] [address] | | | | + + + [...] | | Fingerstick | performed at [facility] | | LAB | | | | [address];[place] | | | | | | [address] | | | | + + + [...] | | Fingerstick | performed at [facility];888 | | LAB | | | | [address];[place], [place] | | | | | | [address] | | | | + + + [...] | | Fingerstick | performed at [facility];888 | | LAB | | | | [address];[place] | | | | | | [address] | | | | + + + [...] | | performed at [facility];888 | | | | | | [address];[place], [place] | | | | | | [address] | | | | + + + [...] | | Fingerstick | performed at [facility];[address] | | LAB | | | | [address];[place], [place] | | | | | | [address] | | | | + + + [...] | | performed at [facility];888 | | | | | | [address];[place], [place] | | | | | | [address] | | | | + + + [...] | | performed at [facility];888 | | LAB | | | | [address];[place] | | | | | | [address] | | | | + + + + + + | Non- | 4.48Comment: Testing | 3.70 - 5.10 | EXTERNAL | | | Red Blood | performed at [facility];888 | M/uL | LAB | | | Cells | [address];[place] | | | | | Counted | [address] | | | | + + + + + + | Hemoglobin | 10.5 (L)Comment: Testing | 11.3 - 15.5 | EXTERNAL | | | | performed at [facility];888 | g/dL | LAB | | | | [address];[place] | | | | | | [address] | | | | + + + + + + | Hematocrit, | 36.0Comment: Testing | 34.0 - 46.0 % | EXTERNAL | | | POC | performed at [facility];[address] | | LAB | | | | [address];[place] | | | | | | [address] | | | | + + + + + + | MCV | 80.5Comment: Testing | 80.0 - 100.0 fl | EXTERNAL | | | | performed at [facility];[address] | | LAB | | | | [address];[place] | | | | | | [address] | | | | + + + + + + | MCH | 23.5 (L)Comment: Testing | 27.0 - 34.0 pg | EXTERNAL | | | | performed at [facility];888 | | LAB | | | | [address];[place] | | | | | | [address] | | | | + + + + + + | MCHC | 29.1 (L)Comment: Testing | 32.0 - 35.5 | EXTERNAL | | | | performed at [facility];888 | g/dL | LAB | | | | [address];[place] | | | | | | [address] | | | | + + + + + + | RDW-CV | 61.3 (H)Comment: Testing | 37 - 53 fl | EXTERNAL | | | | performed at [facility];[address] | | LAB | | | | [address];[place] | | | | | | [address] | | | | + + + + + + | Platelet | 378Comment: Testing | 150 - 400 K/uL | EXTERNAL | | | Count | performed at [facility];888 | | LAB | | | Plasma | [address];[place] | | | | | | [address] | | | | + + + + + + | MPV | 9.5Comment: Testing | fl | EXTERNAL | | | | performed at [facility];[address] | | LAB | | | | [address];[place] | | | | | | [address] | | | | + + + + + + | Differentia | MANUALComment: Testing | | EXTERNAL | | | l Type | performed at [facility];888 | | LAB | | | | [address];[place] | | | | | | [address] | | | | + + + + + + | Nucleated | 2 (H)Comment: Testing | /100WBC | EXTERNAL | | | Red Blood | performed at [facility];888 | | LAB | | | Cells | [address];[place] | | | | | | [address] | | | | + + + + + + | Segmented | 88Comment: Testing | % | EXTERNAL | | | Neutrophils | performed at [facility];888 | | LAB | | | Manual | [address];[place] | | | | | | [address] | | | | + + + + + + | % | 1Comment: Testing | % | EXTERNAL | | | Myelocytes | performed at [facility];[address] | | LAB | | | | [address];[place] | | | | | | [address] | | | | + + + + + + | Lymphocytes | 6Comment: Testing | % | EXTERNAL | | | Manual | performed at [facility];[address] | | LAB | | | | [address];[place] | | | | | | [address] | | | | + + + + + + | Monocytes | 5Comment: Testing | % | EXTERNAL | | | Manual | performed at [facility];[address] | | LAB | | | | [address];[place] | | | | | | [address] | | | | + + + + + + | Absolute | 17.6 (H)Comment: Testing | 1.9 - 7.4 K/uL | EXTERNAL | | | Neutrophils | performed at [facility];888 | | LAB | | | | [address];[place] | | | | | | [address] | | | | + + + + + + | Absolute | 0.2 (H)Comment: Testing | K/uL | EXTERNAL | | | Myelocytes | performed at [facility];[address] | | LAB | | | | [address];[place] | | | | | | [address] | | | | + + + + + + | Absolute | 1.2Comment: Testing | 1.0 - 3.9 K/uL | EXTERNAL | | | Lymphocytes | performed at [facility];[address] | | LAB | | | | [address];[place] | | | | | | [address] | | | | + + + + + + | Absolute | 1.0 (H)Comment: Testing | 0 - 0.8 K/uL | EXTERNAL | | | Monocytes | performed at [facility];888 | | LAB | | | | [address];[place] | | | | | | [address] | | | | + + + + + + | RBC | 1+Comment: | | EXTERNAL | | | Morphology | HYPO2+ANISO1+TARGET1+POI | | LAB | | | | K1+GIANT | | | | | | PLATELETSTesting | | | | | | performed at [facility];888 | | | | | | [address];[place] | | | | | | [address] | | | | | |1+ | | | | | |POIK | | | | | |1+ | | | | | |GIANT PLATELETS | | | | | |Testing performed at [facility];[address];[place] [address] | | | | | | | [...] [address], | | | | | | [place] [address] | | | | + + + [...] | | LAB | | | | [facility];[address];[place] [address] | | | | + + + [...] | | | | | [place] [address] | | | | + + + [...] | | | | | [place] [address] | | | | + + + + + + | K | 4.4Comment: Testing | 3.5 - 4.9 | EXTERNAL | | | | performed at [facility], [address] | mmol/L | LAB | | | | [address], | | | | | | [place] [address] | | | | + + + + + + | Cl | 106Comment: Testing | 99 - 109 mmol/L | EXTERNAL | | | | performed at [facility], [address] | | LAB | | | | [address], | | | | | | [place] [address] | | | | + + + + + + | CO2 | 32Comment: Testing | 23 - 32 mmol/L | EXTERNAL | | | | performed at [facility], [address] | | LAB | | | | [address], | | | | | | [place] [address] | | | | + + + + + + | Anion Gap | 12Comment: Testing | 5 - 20 mmol/L | EXTERNAL | | | | performed at [facility], [address] | | LAB | | | | [address], | | | | | | [place] [address] | | | | + + + + + + | Glucose, | 212 (H)Comment: Testing | 65 - 99 mg/dL | EXTERNAL | | | Fasting | performed at [facility], [address] | | LAB | | | | [address], | | | | | | [place] [address] | | | | + + + + + + | BUN | 20Comment: Testing | 8 - 25 mg/dL | EXTERNAL | | | | performed at [facility], [address] | | LAB | | | | [address], | | | | | | [place] [address] | | | | + + + + + + | Creatinine | 0.86Comment: Testing | 0.50 - 1.00 | EXTERNAL | | | | performed at [facility], [address] | mg/dL | LAB | | | | [address], | | | | | | [place] [address] | | | | + + + + + + | BUN/Creatin | 23Comment: Testing | | EXTERNAL | | | ine Ratio | performed at [facility], [address] | | LAB | | | | [address], | | | | | | [place] [address] | | | | + + + + + + | Calcium | 8.2 (L)Comment: Testing | 8.5 - 10.2 | EXTERNAL | | | | performed at [facility], [address] | mg/dL | LAB | | | | [address], | | | | | | [place] [address] | | | | + + + [...] [address], | | | | | | [place] [address] | | | | + + + [...] | | performed at [facility];888 | mmol/L | LAB | | | | [address];[place], [place] | | | | | | [address] | | | | + + + [...] | | performed at [facility];888 | | | | | | [address];[place], [place] | | | | | | [address] | | | | + + + [...] | | performed at [facility];888 | mmol/L | LAB | | | | [address];[place], [place] | | | | | | [address] | | | | + + + [...] | | performed at [facility];888 | | LAB | | | | [address];[place], [place] | | | | | | [address] | | | | + + + [...] | | performed at [facility];888 | mmol/L | LAB | | | | [address];[place] | | | | | | [address] | | | | + + + [...] | | performed at [facility];888 | | LAB | | | | [facility];[place], [place] | | | | | | [address] | | | | + + + [...] | | performed at [facility];888 | | | | | | [address];[place], [place] | | | | | | [address] | | | | + + + [...] | | performed at [facility] | | | | | | [facility];[place], [place] | | | | | | [address] | | | | + + + [...] | | performed at [facility];888 | | LAB | | | | [address];[place] | | | | | | [address] | | | | + + + + + + | Non- | 4.49Comment: Testing | 3.70 - 5.10 | EXTERNAL | | | Red Blood | performed at [facility];888 | M/uL | LAB | | | Cells | [address];[place] | | | | | Counted | [address] | | | | + + + + + + | Hemoglobin | 10.6 (L)Comment: Testing | 11.3 - 15.5 | EXTERNAL | | | | performed at [facility];888 | g/dL | LAB | | | | [address];[place] | | | | | | [address] | | | | + + + + + + | Hematocrit, | 36.1Comment: Testing | 34.0 - 46.0 % | EXTERNAL | | | POC | performed at [facility];[address] | | LAB | | | | [address];[place] | | | | | | [address] | | | | + + + + + + | MCV | 80.2Comment: Testing | 80.0 - 100.0 fl | EXTERNAL | | | | performed at [facility];888 | | LAB | | | | [address];[place] | | | | | | [address] | | | | + + + + + + | MCH | 23.5 (L)Comment: Testing | 27.0 - 34.0 pg | EXTERNAL | | | | performed at [facility];888 | | LAB | | | | [address];[place] | | | | | | [address] | | | | + + + + + + | MCHC | 29.3 (L)Comment: Testing | 32.0 - 35.5 | EXTERNAL | | | | performed at [facility];888 | g/dL | LAB | | | | [address];[place] | | | | | | [address] | | | | + + + + + + | RDW-CV | 60.8 (H)Comment: Testing | 37 - 53 fl | EXTERNAL | | | | performed at [facility];[address] | | LAB | | | | [address];[place] | | | | | | [address] | | | | + + + + + + | Platelet | 382Comment: Testing | 150 - 400 K/uL | EXTERNAL | | | Count | performed at [facility];[address] | | LAB | | | Plasma | [address];[place] | | | | | | [address] | | | | + + + + + + | MPV | 9.1Comment: Testing | fl | EXTERNAL | | | | performed at [facility];[address] | | LAB | | | | [address];[place] | | | | | | [address] | | | | + + + + + + | Differentia | MANUALComment: Testing | | EXTERNAL | | | l Type | performed at [facility];[address] | | LAB | | | | [address];[place] | | | | | | [address] | | | | + + + + + + | Nucleated | 2 (H)Comment: Testing | /100WBC | EXTERNAL | | | Red Blood | performed at [facility];[address] | | LAB | | | Cells | [address];[place] | | | | | | [address] | | | | + + + + + + | Segmented | 90Comment: Testing | % | EXTERNAL | | | Neutrophils | performed at [facility];[address] | | LAB | | | Manual | [address];[place] | | | | | | [address] | | | | + + + + + + | % Bands | 2Comment: Testing | % | EXTERNAL | | | | performed at [facility];[address] | | LAB | | | | [address];[place] | | | | | | [address] | | | | + + + + + + | Lymphocytes | 8Comment: Testing | % | EXTERNAL | | | Manual | performed at [facility];[address] | | LAB | | | | [address];[place] | | | | | | [address] | | | | + + + + + + | Absolute | 20.5 (H)Comment: Testing | 1.9 - 7.4 K/uL | EXTERNAL | | | Neutrophils | performed at [facility];888 | | LAB | | | | [address];[place] | | | | | | [address] | | | | + + + + + + | Bands | 0.5 (H)Comment: Testing | 0 - 0.2 K/uL | EXTERNAL | | | Manual | performed at [facility];888 | | LAB | | | | [address];[place] | | | | | | [address] | | | | + + + + + + | Absolute | 1.8Comment: Testing | 1.0 - 3.9 K/uL | EXTERNAL | | | Lymphocytes | performed at [facility];[address] | | LAB | | | | [address];[place] | | | | | | [address] | | | | + + + + + + | Platelet | ADEQUATEComment: Testing | | EXTERNAL | | | Estimate | performed at [facility];[address] | | LAB | | | | [facility] | | | | | | [address] | | | | + + + + + + | RBC | 2+Comment: | | EXTERNAL | | | Morphology | ANISO1+HYPO1+ELLIPTO1+PO | | LAB | | | | IK2+TARGETNORMAL PLT | | | | | | MORPHTesting performed | | | | | | at [facility];[address];[place] [address] | | | | | |[place]LLIPTO | | | | | |1+ | | | | | |POIK | | | | | |2+ | | | | | |TARGET | | | | | |NORMAL PLT MORPH | | | | | |Testing performed at [facility];[address] [facility];[place] [address] | | | | | | | [...] | | performed at [facility];[address] | | LAB | | | | [address];[place] | | | | | | [address] | | | | + + + [...] | | LAB | | | | [facility];[address] [place] [address] | | | | | | [facility];[place] [address] | | | | + + + [...] | | performed at [facility];8 | | LAB | | | | [address];[place] | | | | | | [address] | | | | + + + [...] | | performed at [facility];[address] | | LAB | | | | [address];[place], [place] | | | | | | [address] | | | | + + + [...] | | performed at [facility];88 | | | | | | [facility];[place], [place] | | | | | | [address] | | | | + + + [...] | | performed at [facility];888 | mmol/L | LAB | | | | [address];[place] | | | | | | [address] | | | | + + + + + + | K | 3.7Comment: Testing | 3.5 - 4.9 | EXTERNAL | | | | performed at [facility];888 | mmol/L | LAB | | | | [address];[place] | | | | | | [address] | | | | + + + + + + | Cl | 109Comment: Testing | 99 - 109 mmol/L | EXTERNAL | | | | performed at [facility];[address] | | LAB | | | | [address];[place] | | | | | | [address] | | | | + + + + + + | CO2 | 28Comment: Testing | 23 - 32 mmol/L | EXTERNAL | | | | performed at [facility];[address] | | LAB | | | | [address];[place] | | | | | | [address] | | | | + + + + + + | Anion Gap | 14Comment: Testing | 5 - 20 mmol/L | EXTERNAL | | | | performed at [facility];[address] | | LAB | | | | [address];[place] | | | | | | [address] | | | | + + + + + + | Glucose, | 99Comment: Testing | 65 - 99 mg/dL | EXTERNAL | | | Fasting | performed at [facility];[address] | | LAB | | | | [address];[place] | | | | | | [address] | | | | + + + + + + | BUN | 22Comment: Testing | 8 - 25 mg/dL | EXTERNAL | | | | performed at [facility];[address] | | LAB | | | | [address];[place] | | | | | | [address] | | | | + + + + + + | Creatinine | 0.98Comment: Testing | 0.50 - 1.00 | EXTERNAL | | | | performed at [facility];888 | mg/dL | LAB | | | | [address];[place] | | | | | | [address] | | | | + + + + + + | BUN/Creatin | 23Comment: Testing | | EXTERNAL | | | ine Ratio | performed at [facility];888 | | LAB | | | | [address];[place] | | | | | | [address] | | | | + + + + + + | Calcium | 8.4 (L)Comment: Testing | 8.5 - 10.2 | EXTERNAL | | | | performed at [facility];888 | mg/dL | LAB | | | | [address];[place] | | | | | | [address] [...] | | | | | at [facility];[address];[place] [address] | | | | + + + [...] | | | | | | [place] [id number] AT 1844, | | | | | | VAPTesting performed at | | | | | | [facility];[address];[place] [address] | | | | + + + [...] | | performed at [facility];888 | mmol/L | LAB | | | | [address];[place] | | | | | | [address] | | | | + + + [...] | | performed at [facility];888 | | LAB | | | | [address];[place], [place] | | | | | | [address] | | | | + + + [...] | | performed at [facility] | | LAB | | | | [address];[place], [place] | | | | | | [address] | | | | + + + [...] | EXTERNAL LAB | | performed at [facility];[address] [place] [address];[place] [address] 027 NAP1 BI | | | 027 NAP1 BI PRESUMPTIVE NEGATIVE | | | Detection of 027 NAP1 BI strains of C. difficile is presumptive and | | | for epidemiological purposes and not intended to guide or monitor | | | treatment for C. difficile infections. Testing performed at [facility];888 | | | [facility];[place] [address] | | + + + + +---------+ [...] | | performed at [facility];[address] | | | | | | [address];[place], [place] | | | | | | [address] | | | | + + + [...] | | performed at [facility], [address] | | LAB | | | | [address], | | | | | | [place] [address] | | | | + + + + + + | Non- | 4.43Comment: Testing | 3.70 - 5.10 | EXTERNAL | | | Red Blood | performed at [facility], [address] | M/uL | LAB | | | Cells | [address], | | | | | Counted | [place] [address] | | | | + + + + + + | Hemoglobin | 10.8 (L)Comment: Testing | 11.3 - 15.5 | EXTERNAL | | | | performed at [facility], [address] | g/dL | LAB | | | | [address], | | | | | | [place] [address] | | | | + + + + + + | Hematocrit, | 36.2Comment: Testing | 34.0 - 46.0 % | EXTERNAL | | | POC | performed at [facility], [address] | | LAB | | | | [address], | | | | | | [place] [address] | | | | + + + + + + | MCV | 81.7Comment: Testing | 80.0 - 100.0 fl | EXTERNAL | | | | performed at [facility], [address] | | LAB | | | | [address], | | | | | | [place] [address] | | | | + + + + + + | MCH | 24.5 (L)Comment: Testing | 27.0 - 34.0 pg | EXTERNAL | | | | performed at [facility], [address] | | LAB | | | | [address], | | | | | | [place] [address] | | | | + + + + + + | MCHC | 29.9 (L)Comment: Testing | 32.0 - 35.5 | EXTERNAL | | | | performed at [facility], [address] | g/dL | LAB | | | | [address], | | | | | | [place] [address] | | | | + + + + + + | RDW-CV | 63.0 (H)Comment: Testing | 37 - 53 fl | EXTERNAL | | | | performed at [facility], [address] | | LAB | | | | [address], | | | | | | [place], [place] [address] | | | | + + + + + + | Platelet | 325Comment: Testing | 150 - 400 K/uL | EXTERNAL | | | Count | performed at [facility], [address] | | LAB | | | Plasma | [address], | | | | | | [place], [place] [address] | | | | + + + + + + | MPV | 9.5Comment: Testing | fl | EXTERNAL | | | | performed at [facility], [address] | | LAB | | | | [address], | | | | | | [place], [place] [address] | | | | + + + + + + | Differentia | MANUALComment: Testing | | EXTERNAL | | | l Type | performed at [facility], [address] | | LAB | | | | [address], | | | | | | [place] [address] | | | | + + + + + + | Segmented | 86Comment: Testing | % | EXTERNAL | | | Neutrophils | performed at [facility], [address] | | LAB | | | Manual | [address], | | | | | | [place] [address] | | | | + + + + + + | % Bands | 2Comment: Testing | % | EXTERNAL | | | | performed at [facility], [address] | | LAB | | | | [address], | | | | | | [place] [address] | | | | + + + + + + | Lymphocytes | 5Comment: Testing | % | EXTERNAL | | | Manual | performed at [facility], [address] | | LAB | | | | [address], | | | | | | [place] [address] | | | | + + + + + + | Monocytes | 7Comment: Testing | % | EXTERNAL | | | Manual | performed at [facility], [address] | | LAB | | | | [address], | | | | | | [place] [address] | | | | + + + + + + | Absolute | 17.3 (H)Comment: Testing | 1.9 - 7.4 K/uL | EXTERNAL | | | Neutrophils | performed at [facility], [address] | | LAB | | | | [address], | | | | | | [place] [address] | | | | + + + + + + | Bands | 0.4 (H)Comment: Testing | 0 - 0.2 K/uL | EXTERNAL | | | Manual | performed at [facility], [address] | | LAB | | | | [address], | | | | | | [place] [address] | | | | + + + + + + | Absolute | 1.0Comment: Testing | 1.0 - 3.9 K/uL | EXTERNAL | | | Lymphocytes | performed at [facility], [address] | | LAB | | | | [address], | | | | | | [place] [address] | | | | + + + + + + | Absolute | 1.4 (H)Comment: Testing | 0 - 0.8 K/uL | EXTERNAL | | | Monocytes | performed at [facility], [address] | | LAB | | | | [address], | | | | | | [place] [address] | | | | + + + + + + | RBC | NORMAL RBC MORPHComment: | | EXTERNAL | | | Morphology | NORMAL PLT MORPHTesting | | LAB | | | | performed at [facility], [address] | | | | | | [address], | | | | | | [place] [address] | | | | + + + [...] | | performed at [facility];[address] | | LAB | | | | [address];[place] | | | | | | [address] | | | | + + + [...] | | performed at [facility];[address] | | LAB | | | | [address] [facility];[place], [place] | | | | | | [address] | | | | + + + [...] | | performed at [facility];[address] | mmol/L | LAB | | | | [address];[place] | | | | | | [address] | | | | + + + + + + | K | 3.6Comment: Testing | 3.5 - 4.9 | EXTERNAL | | | | performed at [facility];[address] | mmol/L | LAB | | | | [address];[place] | | | | | | [address] | | | | + + + + + + | Cl | 109Comment: Testing | 99 - 109 mmol/L | EXTERNAL | | | | performed at [facility];[address] | | LAB | | | | [address];[place] | | | | | | [address] | | | | + + + + + + | CO2 | 31Comment: Testing | 23 - 32 mmol/L | EXTERNAL | | | | performed at [facility];[address] | | LAB | | | | [address];[place] | | | | | | [address] | | | | + + + + + + | Anion Gap | 11Comment: Testing | 5 - 20 mmol/L | EXTERNAL | | | | performed at [facility];[address] | | LAB | | | | [address];[place] | | | | | | [address] | | | | + + + + + + | Glucose, | 85Comment: Testing | 65 - 99 mg/dL | EXTERNAL | | | Fasting | performed at [facility];[address] | | LAB | | | | [address];[place] | | | | | | [address] | | | | + + + + + + | BUN | 18Comment: Testing | 8 - 25 mg/dL | EXTERNAL | | | | performed at [facility];[address] | | LAB | | | | [address];[place] | | | | | | [address] | | | | + + + + + + | Creatinine | 0.89Comment: Testing | 0.50 - 1.00 | EXTERNAL | | | | performed at [facility];[address] | mg/dL | LAB | | | | [address];[place] | | | | | | [address] | | | | + + + + + + | BUN/Creatin | 20Comment: Testing | | EXTERNAL | | | ine Ratio | performed at [facility];[address] | | LAB | | | | [address];[place] | | | | | | [address] | | | | + + + + + + | Calcium | 8.0 (L)Comment: Testing | 8.5 - 10.2 | EXTERNAL | | | | performed at [facility];[address] | mg/dL | LAB | | | | [address];[place], [place] | | | | | | [address] | | | | + + + [...] | | | | | at [facility];[address];[place] [address] | | | | + + + [...] | | performed at [facility];[address] | mmol/L | LAB | | | | [address];[place], [place] | | | | | | [address] | | | | + + + [...] | | performed at [facility];[address] | | LAB | | | | [address];[place], [place] | | | | | | [address] | | | | + + + [...] | | performed at [facility] | | LAB | | | | [address];[place], [place] | | | | | | [address] | | | | + + + [...] | EXTERNAL LAB | | performed at [facility];[address] [facility];[place] [address] Pneumocystis Smear, | | | DFA ACCESSION NO. | | | [id number] SPECIMEN SOURCE SPUTUM | | | RESULT NO PNEUMOCYSTIS SEEN | | | BY DIRECT | | | FLUORESCENT ANTIBODY STAIN Testing performed at [facility] | | | [place], [address] [address] PNEMOCYSTIS FA,STATUS | | | REPORT STATUS FINAL 04/15/2014 | | | Testing performed at [facility], [address] | | | [place] [address] | | + + + + +---------+ [...] | | performed at [facility];[address] | | | | | | [address];[place], [place] | | | | | | [address] | | | | + + + [...] | | performed at [facility] | | LAB | | | | [address] [facility];[place], [place] | | | | | | [address] | | | | + + + [...] | | performed at [facility];[address] | | | | | | [address];[place] | | | | | | [address] | | | | + + + [...] | | performed at [facility];[address] | | | | | | [facility];[place], [place] | | | | | | [address] | | | | + + + [...] | | performed at [facility];[address] | | LAB | | | | [address];[place] | | | | | | [address] | | | | + + + + + + | Non- | 4.14Comment: Testing | 3.70 - 5.10 | EXTERNAL | | | Red Blood | performed at [facility];888 | M/uL | LAB | | | Cells | [address];[place] | | | | | Counted | [id number] | | | | + + + + + + | Hemoglobin | 10.0 (L)Comment: Testing | 11.3 - 15.5 | EXTERNAL | | | | performed at [facility];888 | g/dL | LAB | | | | [address];[place] | | | | | | [address] | | | | + + + + + + | Hematocrit, | 32.7 (L)Comment: Testing | 34.0 - 46.0 % | EXTERNAL | | | POC | performed at [facility];[address] | | LAB | | | | [address];[place] | | | | | | [address] | | | | + + + + + + | MCV | 79.1 (L)Comment: Testing | 80.0 - 100.0 fl | EXTERNAL | | | | performed at [facility];[address] | | LAB | | | | [address];[place] | | | | | | [address] | | | | + + + + + + | MCH | 24.3 (L)Comment: Testing | 27.0 - 34.0 pg | EXTERNAL | | | | performed at [facility];[address] | | LAB | | | | [address];[place] | | | | | | [address] | | | | + + + + + + | MCHC | 30.7 (L)Comment: Testing | 32.0 - 35.5 | EXTERNAL | | | | performed at [facility];888 | g/dL | LAB | | | | [address];[place] | | | | | | [address] | | | | + + + + + + | RDW-CV | 60.8 (H)Comment: Testing | 37 - 53 fl | EXTERNAL | | | | performed at [facility];[address] | | LAB | | | | [address];[place] | | | | | | [address] | | | | + + + + + + | Platelet | 281Comment: Testing | 150 - 400 K/uL | EXTERNAL | | | Count | performed at [facility];[address] | | LAB | | | Plasma | [address];[place] | | | | | | [address] | | | | + + + + + + | MPV | 9.1Comment: Testing | fl | EXTERNAL | | | | performed at [facility];[address] | | LAB | | | | [address];[place] | | | | | | [address] | | | | + + + + + + | Differentia | MANUALComment: Testing | | EXTERNAL | | | l Type | performed at [facility];[address] | | LAB | | | | [address];[place] | | | | | | [address] | | | | + + + + + + | Nucleated | 1 (H)Comment: Testing | /100WBC | EXTERNAL | | | Red Blood | performed at [facility];[address] | | LAB | | | Cells | [address];[place] | | | | | | [address] | | | | + + + + + + | Segmented | 91Comment: Testing | % | EXTERNAL | | | Neutrophils | performed at [facility];[address] | | LAB | | | Manual | [address];[place] | | | | | | [address] | | | | + + + + + + | Lymphocytes | 6Comment: Testing | % | EXTERNAL | | | Manual | performed at [facility];[address] | | LAB | | | | [address];[place] | | | | | | [address] | | | | + + + + + + | Monocytes | 3Comment: Testing | % | EXTERNAL | | | Manual | performed at [facility];[address] | | LAB | | | | [address];[place] | | | | | | [address] | | | | + + + + + + | Absolute | 19.1 (H)Comment: Testing | 1.9 - 7.4 K/uL | EXTERNAL | | | Neutrophils | performed at [facility];[address] | | LAB | | | | [address];[place] | | | | | | [address] | | | | + + + + + + | Absolute | 1.3Comment: Testing | 1.0 - 3.9 K/uL | EXTERNAL | | | Lymphocytes | performed at [facility];[address] | | LAB | | | | [address];[place] | | | | | | [address] | | | | + + + + + + | Absolute | 0.6Comment: Testing | 0 - 0.8 K/uL | EXTERNAL | | | Monocytes | performed at [facility];[address] | | LAB | | | | [address];[place] | | | | | | [address] | | | | + + + + + + | Platelet | ADEQUATEComment: Testing | | EXTERNAL | | | Estimate | performed at [facility];[address] | | LAB | | | | [address];[place] | | | | | | [address] | | | | + + + + + + | RBC | 3+Comment: | | EXTERNAL | | | Morphology | ANISO1+MACRO1+MICRO1+HYP | | LAB | | | | O1+POLY2+TARGET1+ACANTHO | | | | | | Testing performed at | | | | | | [facility];[address];[place] [address] | | | | | |MICRO | | | | | |1+ | | | | | |HYPO | | | | | |1+ | | | | | |POLY | | | | | |2+ | | | | | |TARGET | | | | | |1+ | | | | | |ACANTHO | | | | | |Testing performed at [facility];[address] [place] [address];[place] [address] | | | | | | | [...] | | performed at [facility] | | LAB | | | | [address];[place], [place] | | | | | | [address] | | | | + + + [...] | | | | | at [facility];[address] [place] [address] | | | | | | [facility];[place] [address] | | | | + + + [...] | | performed at [facility];888 | mmol/L | LAB | | | | [address];[place] | | | | | | [address] | | | | + + + + + + | K | 5.4 (H)Comment: SLT | 3.5 - 4.9 | EXTERNAL | | | | HEMOLYSISTesting | mmol/L | LAB | | | | performed at [facility];[address] | | | | | | [address];[place] | | | | | | [address] | | | | + + + + + + | Cl | 107Comment: Testing | 99 - 109 mmol/L | EXTERNAL | | | | performed at [facility];[address] | | LAB | | | | [address];[place] | | | | | | [address] | | | | + + + + + + | CO2 | 24Comment: Testing | 23 - 32 mmol/L | EXTERNAL | | | | performed at [facility];[address] | | LAB | | | | [address];[place] | | | | | | [address] | | | | + + + + + + | Anion Gap | 15Comment: Testing | 5 - 20 mmol/L | EXTERNAL | | | | performed at [facility];[address] | | LAB | | | | [address];[place] | | | | | | [address] | | | | + + + + + + | Glucose, | 94Comment: Testing | 65 - 99 mg/dL | EXTERNAL | | | Fasting | performed at [facility];[address] | | LAB | | | | [address];[place] | | | | | | [address] | | | | + + + + + + | BUN | 14Comment: Testing | 8 - 25 mg/dL | EXTERNAL | | | | performed at [facility];[address] | | LAB | | | | [address];[place] | | | | | | [address] | | | | + + + + + + | Creatinine | 0.72Comment: Testing | 0.50 - 1.00 | EXTERNAL | | | | performed at [facility];888 | mg/dL | LAB | | | | [address];[place] | | | | | | [address] | | | | + + + + + + | BUN/Creatin | 19Comment: Testing | | EXTERNAL | | | ine Ratio | performed at [facility];[address] | | LAB | | | | [address];[place] | | | | | | [address] | | | | + + + + + + | Calcium | 7.3 (L)Comment: Testing | 8.5 - 10.2 | EXTERNAL | | | | performed at [facility];888 | mg/dL | LAB | | | | [address];[place] | | | | | | [address] | | | | + + + [...] | | | | | at [facility];[address] | | | | | | [address];[place] [address] | | | | + + [...] HAND | | | Testing performed at [facility];[address] | | | [facility];[place] [address] CULTURE | | | NO GROWTH | | | Testing performed at [facility], [address] [facility], [place], [place] | | | [address] | | + + + + +---------+ [...] | | | | [facility];[address] [place] [address] | | | | | | [facility];[place] [address] | | | | + + + [...] | | performed at [facility] | | | | | | [address];[place], [place] | | | | | | [address] | | | | + + + [...] | | performed at [facility];[address] | | LAB | | | | [address];[place] | | | | | | [address] | | | | + + + + + + | Non- | 4.24Comment: Testing | 3.70 - 5.10 | EXTERNAL | | | Red Blood | performed at [facility];888 | M/uL | LAB | | | Cells | [address];[place] | | | | | Counted | [address] | | | | + + + + + + | Hemoglobin | 10.3 (L)Comment: Testing | 11.3 - 15.5 | EXTERNAL | | | | performed at [facility];888 | g/dL | LAB | | | | [address];[place] | | | | | | [address] | | | | + + + + + + | Hematocrit, | 33.3 (L)Comment: Testing | 34.0 - 46.0 % | EXTERNAL | | | POC | performed at [facility];[address] | | LAB | | | | [address];[place] | | | | | | [address] | | | | + + + + + + | MCV | 78.6 (L)Comment: Testing | 80.0 - 100.0 fl | EXTERNAL | | | | performed at [facility];[address] | | LAB | | | | [address];[place] | | | | | | [address] | | | | + + + + + + | MCH | 24.2 (L)Comment: Testing | 27.0 - 34.0 pg | EXTERNAL | | | | performed at [facility];[address] | | LAB | | | | [address];[place] | | | | | | [address] | | | | + + + + + + | MCHC | 30.8 (L)Comment: Testing | 32.0 - 35.5 | EXTERNAL | | | | performed at [facility];888 | g/dL | LAB | | | | [address];[place] | | | | | | [address] | | | | + + + + + + | RDW-CV | 61.7 (H)Comment: Testing | 37 - 53 fl | EXTERNAL | | | | performed at [facility];[address] | | LAB | | | | [address];[place] | | | | | | [address] | | | | + + + + + + | Platelet | 283Comment: Testing | 150 - 400 K/uL | EXTERNAL | | | Count | performed at [facility];[address] | | LAB | | | Plasma | [address];[place] | | | | | | [address] | | | | + + + + + + | MPV | 9.0Comment: Testing | fl | EXTERNAL | | | | performed at [facility];[address] | | LAB | | | | [address];[place] | | | | | | [address] | | | | + + + + + + | Differentia | MANUALComment: Testing | | EXTERNAL | | | l Type | performed at [facility];[address] | | LAB | | | | [address];[place] | | | | | | [address] | | | | + + + + + + | Nucleated | 3 (H)Comment: Testing | /100WBC | EXTERNAL | | | Red Blood | performed at [facility];[address] | | LAB | | | Cells | [address];[place] | | | | | | [address] | | | | + + + + + + | Segmented | 91Comment: Testing | % | EXTERNAL | | | Neutrophils | performed at [facility];[address] | | LAB | | | Manual | [address];[place] | | | | | | [address] | | | | + + + + + + | % Bands | 2Comment: Testing | % | EXTERNAL | | | | performed at [facility];[address] | | LAB | | | | [address];[place] | | | | | | [address] | | | | + + + + + + | Lymphocytes | 2Comment: Testing | % | EXTERNAL | | | Manual | performed at [facility];[address] | | LAB | | | | [address];[place] | | | | | | [address] | | | | + + + + + + | % Atypical | 2Comment: Testing | % | EXTERNAL | | | Lymphocytes | performed at [facility];[address] | | LAB | | | | [address];[place] | | | | | | [address] | | | | + + + + + + | Monocytes | 3Comment: Testing | % | EXTERNAL | | | Manual | performed at [facility];[address] | | LAB | | | | [address];[place] | | | | | | [address] | | | | + + + + + + | Absolute | 16.9 (H)Comment: Testing | 1.9 - 7.4 K/uL | EXTERNAL | | | Neutrophils | performed at [facility];[address] | | LAB | | | | [address];[place] | | | | | | [address] | | | | + + + + + + | Bands | 0.4 (H)Comment: Testing | 0 - 0.2 K/uL | EXTERNAL | | | Manual | performed at [facility];888 | | LAB | | | | [address];[place] | | | | | | [address] | | | | + + + + + + | Absolute | 0.4 (L)Comment: Testing | 1.0 - 3.9 K/uL | EXTERNAL | | | Lymphocytes | performed at [facility];[address] | | LAB | | | | [address];[place] | | | | | | [address] | | | | + + + + + + | Absolute | 0.4 (H)Comment: Testing | K/uL | EXTERNAL | | | Atypical | performed at [facility];888 | | LAB | | | Lymphocytes | [address];[place] | | | | | | [address] | | | | + + + + + + | Absolute | 0.6Comment: Testing | 0 - 0.8 K/uL | EXTERNAL | | | Monocytes | performed at [facility];[address] | | LAB | | | | [address];[place] | | | | | | [address] | | | | + + + + + + | Platelet | ADEQUATEComment: Testing | | EXTERNAL | | | Estimate | performed at [facility];[address] | | LAB | | | | [address];[place] | | | | | | [address] | | | | + + + + + + | RBC | 1+Comment: | | EXTERNAL | | | Morphology | ANISO1+POIK2+HYPO1+TARGE | | LAB | | | | TNORMAL PLT MORPHTesting | | | | | | performed at [facility];[address] | | | | | | [facility];[place], [place] | | | | | | [address] | | | | | |HYPO | | | | | |1+ | | | | | |TARGET | | | | | |NORMAL PLT MORPH | | | | | |Testing performed at [facility];[address] [facility];[place] [address] | | | | | | | [...] | | performed at [facility];888 | mmol/L | LAB | | | | [address];[place] | | | | | | [address] | | | | + + + + + + | K | 4.1Comment: SPECIMEN | 3.5 - 4.9 | EXTERNAL | | | | SLIGHTLY | mmol/L | LAB | | | | HEMOLYZEDTesting | | | | | | performed at [facility];[address] | | | | | | [address];[place] | | | | | | [address] | | | | + + + + + + | Cl | 105Comment: Testing | 99 - 109 mmol/L | EXTERNAL | | | | performed at [facility];[address] | | LAB | | | | [address];[place] | | | | | | [address] | | | | + + + + + + | CO2 | 24Comment: Testing | 23 - 32 mmol/L | EXTERNAL | | | | performed at [facility];[address] | | LAB | | | | [address];[place] | | | | | | [address] | | | | + + + + + + | Anion Gap | 15Comment: Testing | 5 - 20 mmol/L | EXTERNAL | | | | performed at [facility];[address] | | LAB | | | | [address];[place] | | | | | | [address] | | | | + + + + + + | Glucose, | 137 (H)Comment: Testing | 65 - 99 mg/dL | EXTERNAL | | | Fasting | performed at [facility];[address] | | LAB | | | | [address];[place] | | | | | | [address] | | | | + + + + + + | BUN | 15Comment: Testing | 8 - 25 mg/dL | EXTERNAL | | | | performed at [facility];[address] | | LAB | | | | [address];[place] | | | | | | [address] | | | | + + + + + + | Creatinine | 0.96Comment: Testing | 0.50 - 1.00 | EXTERNAL | | | | performed at [facility];888 | mg/dL | LAB | | | | [address];[place] | | | | | | [address] | | | | + + + + + + | BUN/Creatin | 15Comment: Testing | | EXTERNAL | | | ine Ratio | performed at [facility];[address] | | LAB | | | | [address];[place] | | | | | | [address] | | | | + + + + + + | Calcium | 7.5 (L)Comment: Testing | 8.5 - 10.2 | EXTERNAL | | | | performed at [facility];888 | mg/dL | LAB | | | | [address];[place] | | | | | | [address] | | | | + + + + + + | Protein, | 5.2 (L)Comment: Testing | 6.3 - 8.2 g/dL | EXTERNAL | | | Total | performed at [facility];[address] | | LAB | | | | [address];[place] | | | | | | [address] | | | | + + + + + + | Albumin | 1.6 (L)Comment: Testing | 3.6 - 5.0 g/dL | EXTERNAL | | | | performed at [facility];[address] | | LAB | | | | [address];[place] | | | | | | [address] | | | | + + + + + + | Globulin | 3.7Comment: Testing | 1.3 - 4.9 g/dL | EXTERNAL | | | | performed at [facility];[address] | | LAB | | | | [address];[place] | | | | | | [address] | | | | + + + + + + | A/G Ratio | 0.4 (L)Comment: Testing | 1.0 - 2.4 | EXTERNAL | | | | performed at [facility];[address] | | LAB | | | | [address];[place] | | | | | | [address] | | | | + + + + + + | Bilirubin | 0.3Comment: Testing | 0.1 - 1.5 mg/dL | EXTERNAL | | | Total | performed at [facility];[address] | | LAB | | | | [address];[place] | | | | | | [address] | | | | + + + + + + | ALP, | 86Comment: Testing | 35 - 115 U/L | EXTERNAL | | | External | performed at [facility];[address] | | LAB | | | | [address];[place] | | | | | | [address] | | | | + + + + + + | AST | 55 (H)Comment: SPECIMEN | 10 - 45 U/L | EXTERNAL | | | | SLIGHTLY | | LAB | | | | HEMOLYZEDTesting | | | | | | performed at [facility];[address] | | | | | | [address];[place] | | | | | | [address] | | | | + + + + + + | ALT | 18Comment: Testing | 10 - 65 U/L | EXTERNAL | | | | performed at [facility];[address] | | LAB | | | | [address];[place] | | | | | | [address] | | | | + + + [...] | | | | | at [facility];[address] [place] [address] | | | | | | [facility];[place] [address] | | | | + + + [...] RHAND | | | Testing performed at [facility];[address] | | | [address];[place] [address] CULTURE | | | NO GROWTH | | | Testing performed at [facility], [address], [place] | | | [address] | | + + + + +---------+ [...] Conversion - 11/24/2018 6:38 AM PDT MACKENZIE [id number] yearsXR CHEST 1 | | VIEW04/12/2014 5:13 [...] EXTERNAL LAB | | Testing performed at [facility];[address] [place] [address];[place] [address] MRSA PCR | | | NEGATIVE Testing performed at | | | [facility];[address] [place] [address];[place] [address] | | + + + + +---------+ [...] | | | | | [place] [address] | | | | + + + + + + | Clarity, | CLEARComment: Testing | | EXTERNAL | | | Urine | performed at [facility], [address] | | LAB | | | | [address], | | | | | | [place] [address] | | | | + + + + + + | Specific | 1.021Comment: Testing | 1.002 - 1.030 | EXTERNAL | | | [place], | performed at [facility], [address] | [...] | | | | | [place] [address] | | | | + + + + + + | Nitrite, | NEGATIVEComment: Testing | | EXTERNAL | | | Urine | performed at [facility], [address] | | LAB | | | | [address], | | | | | | [place] [address] | | | | + + + + + + | Urobilinoge | 0.2Comment: Testing | mg/dL | EXTERNAL | | | n, Urine | performed at [facility], [address] | | LAB | | | | [address], | | | | | | [place] [address] | | | | + + + + + + | Protein, | NEGATIVEComment: Testing | mg/dL | EXTERNAL | | | Urine | performed at [facility], [address] | | LAB | | | | [address], | | | | | | [place] [address] | | | | + + + + + + | pH, Urine | 6.0Comment: Testing | 5.0 - 8.0 | EXTERNAL | | | | performed at [facility], [address] | | LAB | | | | [address], | | | | | | [place] [address] | | | | + + + + + + | Blood, | NEGATIVEComment: Testing | | EXTERNAL | | | Urine | performed at [facility], [address] | | LAB | | | | [address], | | | | | | [place] [address] | | | | + + + + + + | Ketones | NEGATIVEComment: Testing | mg/dL | EXTERNAL | | | | performed at [facility], [address] | | LAB | | | | [address], | | | | | | [place] [address] | | | | + + + + + + | Bilirubin, | NEGATIVEComment: Testing | | EXTERNAL | | | Urine | performed at [facility], [address] | | LAB | | | | [address], | | | | | | [place] [address] | | | | + + + + + + | Glucose, | NEGATIVEComment: Testing | mg/dL | EXTERNAL | | | Urine | performed at [facility], [address] | | LAB | | | | [address], | | | | | | [place] [address] | | | | + + + [...] ALBICANSAbnormal | | | Testing performed at [facility], [address] [place], [place] | | | [address] | | + + + + +---------+ [...]
--- OUTSIDE RECORDS SUMMARY | ~2019-11-05 | XMS | Encounter Summary ---
Demographics + + + | Address | [address] | | | [place] [address] | + + + | Home Phone [...] + | Author | [facility] | | | and [place] | + + + | Organization | [facility] | | | and [...] Team Providers + +------+ + | Care Forestry Farm Laborer Name | Role | Phone | + +------+ + PCP | Unavailable | + +------+ + Encounter Details +--------+ + + + + | Date | Type | Department | Care Team | Description | +--------+ + + + + | 04/10/ | Hospital | [facility] | Ro Davidson MD | Pyelonephritis | | 2015 - | Encounter | MEDICAL CENTER | [address] | | | | | CLINICAL DECISION | [place] [address] | | | 07/22/ | | [address] | [phone] | | | 2014 | | [place], [place] | | | | | | [address] | | | | | | [phone] | | | +--------+ + + + [...] Summaries by Compa Jules MD at 07/22/14 9356 Author: Compa Jules MD Service: (none) Author Type: Physician Filed: 08/14/14 1201 Date of Service: 07/22/14 1256 Status: Signed Career Center Advisor: Compa Jules MD (Physician) Related Notes: Original Note by Compa Jules MD (Physician) filed at 07/22/14 1288 [facility]: Hospitalist Physician Discharge Summary Patient ID: Mackenzie Willingham [id number] 58 y.o. 1955 Admit date: 07/19/2014 Discharge [...] up: Neel Fernandes MD [address] [place] [address] Raphael Gan DO [address] 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 You may get the following medications [...] Note by Leelee Fermin RN at 07/22/14 0451 Author: Leelee Fermin RN Service: (none) Author Type: Registered Nurse Filed: 07/22/14 1335 Date of Service: 07/22/14 1335 Status: Signed Career Center Advisor: Leelee Fermin RN (Registered Nurse) Patient received discharge teaching with no questions or concerns. Patient left via private vehicle with daughter. Leelee Fermin RN onver roshan Transaction, Provider Unknown - 07/22/2014 1:06 PM PDT Case Management by Kateryna Salazar RN at 07/22/14 1306 Author: Kateryna Salazar RN Service: (none) Author Type: Registered Nurse Filed: 07/22/14 1307 Date of Service: 07/22/14 1306 Status: Signed Career Center Advisor: Kateryna Salazar RN (Registered Nurse) Patient requesting [...] Date of Service: 07/22/14 1155 Status: Signed Career Center Advisor: Nadiya Smith PT (Physical Therapist) 07/22/14 1155 [...] Date of Service: 07/22/14 1043 Status: Signed Career Center Advisor: Raphael Gan DO (Physician) [facility]: Infectious Disease Progress Note Hospital Day: LOS: 3 days Post-Op Day: * No surgery found * SUBJECTIVE Patient Summary: 58 y.o. female with significant past medical history of Crohn's dis ease on chronic prednisone 15 mg daily, COPD, gastroesophageal reflux disease, allergies to penicillin, levofloxacin, erythromycin who presented to [facility] with we akness and urinary [...] EGFR >60 07/22/2014 Urine culture from [facility] shows pansensitive Escherichia coli with the [...] Notes by Compa Jules MD at 07/21/14 1100 Author: Compa Jules MD Service: (none) Author Type: Physician Filed: 07/21/14 1126 Date of Service: 07/21/141108 Status: Signed Career Center Advisor: Compa Jules MD (Physician) [facility]: Hospitalist Progress Note Hospital Day: LOS: 2 days Consultants: Treatment Team: Consulting Physician: Raphael Gan DO Admitting Provider: Ro Davidson MD The first problem in assessment is the principal problem. ASSESSMENT/ PLAN 1. Systemic inflammatory response syndrome, urinary tract infection. Leukocytosis improving (patient does have some chronic leukocytosis). Continue with vancomycin, aztreonam for now. Received cultures, blood and urine from [facility]. Blood cultures negative so far. 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 Patient has multiple allergie s. [...] 4 months. 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 5. Chronic congestive heart failure, currently stable. Not decompensated at this point. Disposition: Home. Possibly the next 1-2 days Code Status: Full Code Dictation and auto engine mechanic or software, AlchemyAPI, used which may contain error for similar [...] Date of Service: 07/21/14 1018 Status: Signed Career Center Advisor: Vale Ladd RN (Registered Nurse) Pt much more awake and active today. Attempted to eat breakfast, using the commode to toil et, took shower. Still complains of headache and nausea. Vale Salgado onver roshan Transaction, Provider Unknown - 07/21/2014 9:16 AM PDT Case Management by LEVI Jerry at 07/21/14915 Author: LEVI Jerry Service: (none) Author Type: Corrosion Control Engineer Filed: 07/21/14919 Date of Service: 07/21/14915 Status: Signed Career Center Advisor: LEVI Jerry (Corrosion Control Engineer) 07/21/14913 Discharge Planning Evaluation Admitting Diagnosis (Sepsis [...] care /care: Pt lives with her in [place]. Can provide all self-care/ADLs patients primary care [...] disease with hiatal hernia , Patient's insurance: Medicare/[facility] PT recommendations / DME recommendations: N/A - No DME indicated at this time Community resources: Patient just started PT at the "rec center" in [place]. Assistance in transportation: Family can transport home. CM also spoke with pt's RN, Vale and she did not identify any d/c needs at this time. LEVI Jerry Compa Nam MD - 07/20/2014 4:57 PM PDTFormatting of this note might be different from the origi nal. Progress Notes by Compa Jules MD at 07/20/14 4197 Author: Compa Jules MD Service: (none) Author Type: Physician Filed: 08/04/14 1307 Date of Service: 07/20/141656 Status: Signed Career Center Advisor: Compa Jules MD (Physician) Related Notes: Original Note by Compa Jules MD (Physician) filed at 07/20/14 1700 [facility]: Hospitalist Progress Note Hospital Day: [...] 4 months. 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 5. Chronic congestive heart failure, currently stable. Not decompensated at this point. Disposition: Home. Pending above Code Status: Full Code Dictation and auto engine mechanic or software, AlchemyAPI, used which may contain error for similar [...] Notes by Vale Ladd RN at 07/20/14 1220 Author: Vale Ladd RN Service: (none) Author Type: Registered Nurse Filed: 07/20/14 2004 Date of Service: 07/20/141316 Status: Signed Career Center Advisor: Vale Ladd RN (Registered Nurse) Pt educated [...] AM PDT Progress Notes by Paula Barnes [facility] at 07/20/14 0873 Author: Paula Barnes RPH Service: (none) Author Type: Pharmacist Filed: 07/20/14715 Date of Service: 07/20/14715 Status: Signed Career Center Advisor: Paula Barnes RPH (Pharmacist) Late entry for Vancomycin started last night by Crispin LUNA. Initiation of Vancomycin Pharmacy Dosing Mackenzie Willingham 58 y.o. female 1.753 m (5' 9") 64.32 kg (141 lb 12.8 oz) Body mass index is 20.93 kg/(m^2). [place] Body Weight: 66.2 kg Adjusted Body Weight: 64.3 kg CREATININE Date Value Ref Range Status 07/20/2014 0.76 0.50 - 1.00 mg/dL Final Testing performed at [facility];[address] [place] [id number] Estimated CrCl : CREATININE: 0.76 (07/20/14 0354) [...] 07/19/142055 Date of Service: 07/19/142055 Status: Signed Career Center Advisor: Hamilton Drummond RPH (Pharmacist) Note ccl 90.2ml/min meds reviewed Pharmacy will follow [facility] 2054 docume nted in this encounter H&P Notes Ro Davidson MD - 07/19/2014 8:00 PM PDTFormatting of this note might be different from th e original. H&P by Ro Davidson MD at 07/19/141999 Author: Ro Davidson MD Service: Hospitalist Author Type: Physician Filed: 07/20/14 0822 Date of Service: 07/19/141999 Status: Addendum Career Center Advisor: Ro Davidson MD (Physician) Related Notes: Original Note by Ro Davidson MD (Physician) filed at 07/19/142055 [facility]: Hospitalist Admission History & Physical Date of Admission: 07/19/2014 Requesting Physician: Transfer from [facility] Reason for Admission: Sepsis due to UTI History Obtained From: patient, chart review CHIEF COMPLAINT: i am feeling sick HISTORY OF PRESENT ILLNESS The patient is a 58 y.o. 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 Procedure: SPLENECTOMY; Surgeon: Bogdan Moser DO; Location: [facility] MAIN OR; Service: General; Laterality: [...] in this encou nter Consult Notes Raphael aGn DO - 07/21/2014 12:15 PM PDT Consult* by Raphael Gan DO at 07/21/14 1215 Author: Raphael Gan DO Service: (none) Author Type: Physician Filed: 07/21/14 1240 Date of Service: 07/21/141214 Status: Signed Career Center Advisor: Raphael Gan DO (Physician) [facility]: Infectious Disease Initial Consult Note [...] penicil mamadou, levofloxacin, erythromycin who presented to [facility] with weakness and urinary incontinence. 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 Procedure: SPLENECTOMY; Surgeon: Bogdan Moser DO; Location: [facility] MAIN OR; Service: General; Laterality: [...] | Testing performed | | | at [facility], [address] [place] [address] | | + + + + +---------+ [...] | | | | | | [place] [address] | | | | + + + + + + | Clarity, | CLEARComment: Testing | | EXTERNAL | | | Urine | performed at [facility], [address] | | LAB | | | | [address], | | | | | | [place] [address] | | | | + + + + + + | Specific | 1.009Comment: Testing | 1.002 - 1.030 | EXTERNAL | | | [place], | performed at [facility], [address] | | LAB | | | Urine | [address], | | | | | | [place] [address] | | | | + + + + + + | Leukocyte | MODERATE (A)Comment: | | EXTERNAL | | | Esterase, | Testing performed at | | LAB | | | Urine | [facility], [address] | | | | | | [place] | | | | | | [address] | | | | + + + + + + | Nitrite, | NEGATIVEComment: Testing | | EXTERNAL | | | Urine | performed at [facility], [address] | | LAB | | | | [address], | | | | | | [place] [address] | | | | + + + [...] | | | | | [place] [address] | | | | + + + + + + | pH, Urine | 6.0Comment: Testing | 5.0 - 8.0 | EXTERNAL | | | | performed at [facility], [address] | | LAB | | | | [address] [place], | | | | | | [place] [address] | | | | + + + + + + | Blood, | NEGATIVEComment: Testing | | EXTERNAL | | | Urine | performed at [facility], [address] | | LAB | | | | [address], | | | | | | [place] [address] | | | | + + + + + + | Ketones | NEGATIVEComment: Testing | mg/dL | EXTERNAL | | | | performed at [facility], [address] | | LAB | | | | [address], | | | | | | [place] [address] | | | | + + + + + + | Bilirubin, | NEGATIVEComment: Testing | | EXTERNAL | | | Urine | performed at [facility], [address] | | LAB | | | | [address] [place], | | | | | | [place] [address] | | | | + + + + + + | Glucose, | NEGATIVEComment: Testing | mg/dL | EXTERNAL | | | Urine | performed at [facility], [address] | | LAB | | | | [address] [place], | | | | | | [place] [address] | | | | + + + [...] | | | | | [place] [address] | | | | + + + + + + | RBC, UA | 16-25Comment: Testing | 0 - 5 /hpf | EXTERNAL | | | | performed at [facility], [address] | | LAB | | | [address], | | | | | | [place] [address] | | | | + + + + + + | Epithelial | 26-50Comment: Testing | /lpf | EXTERNAL | | | Cells | performed at [facility], [address] | | LAB | | | | [address] [place], | | | | | | [place] [address] | | | | + + + + + + | Bacteria, | NONE SEENComment: | | EXTERNAL | | | UA | CULTURE TO FOLLOWTesting | | LAB | | | | performed at [facility], [address] | | | | | | [address] [place], | | | | | | [place] [address] | | | | + + + + + + | HYALINE | NONE SEENComment: | | EXTERNAL | | | CASTS UA | Testing performed at | | LAB | | | | [facility], [address] | | | | | | [place] | | | | | | [address] | | | | + + + [...] | | | | performed at [facility];[address] | | | | | | [address];[place], [place] | | | | | | [address] | | | | + + + [...] [place] | | | | | | [address] | | | | + + + + + + | Non- | 4.06Comment: Testing | 3.70 - 5.10 | EXTERNAL | | | Red Blood | performed at [facility], [address] | M/uL | LAB | | | Cells | [address], | | | | | [address] | [place] [address] | | | | + + + + + + | Hemoglobin | 12.5Comment: Testing | 11.3 - 15.5 | EXTERNAL | | | | performed at [facility], [address] | g/dL | LAB | | | | [address], | | | | | | [place] [address] | | | | + + + + + + | Hematocrit, | 40.1Comment: Testing | 34.0 - 46.0 % | EXTERNAL | | | POC | performed at [facility], [address] | | LAB | | | | [address], | | | | | | [place] [address] | | | | + + + + + + | MCV | 98.6Comment: Testing | 80.0 - 100.0 fl | EXTERNAL | | | | performed at [facility], [address] | | LAB | | | | [address], | | | | | | [place] [address] | | | | + + + + + + | MCH | 30.8Comment: Testing | 27.0 - 34.0 pg | EXTERNAL | | | | performed at [facility], [address] | | LAB | | | | [address], | | | | | | [place] [address] | | | | + + + + + + | MCHC | 31.2 (L)Comment: Testing | 32.0 - 35.5 | EXTERNAL | | | | performed at [facility], [address] | g/dL | LAB | | | | [address], | | | | | | [place] [address] | | | | + + + + + + | RDW-CV | 55.1 (H)Comment: Testing | 37 - 53 fl | EXTERNAL | | | | performed at [facility], [address] | | LAB | | | | [address], | | | | | | [place] [address] | | | | + + + + + + | Platelet | 309Comment: Testing | 150 - 400 K/uL | EXTERNAL | | | Count | performed at [facility], [address] | | LAB | | | Plasma | [address], | | | | | | [place] [address] | | | | + + + + + + | MPV | 8.7Comment: Testing | fl | EXTERNAL | | | | performed at [facility], [address] | | LAB | | | | [address] [place], | | | | | | [place] [address] | | | | + + + + + + | Differentia | AUTOMATEDComment: | | EXTERNAL | | | l Type | Testing performed at | | LAB | | | | [facility], [address] | | | | | | [place] | | | | | | [address] | | | | + + + + + + | % Segmented | 72.50Comment: Testing | % | EXTERNAL | | | | performed at [facility], [address] | | LAB | | | Neutrophils | [address] [place], | | | | | | [place] [address] | | | | + + + + + + | % | 19.86Comment: Testing | % | EXTERNAL | | | Lymphocytes | performed at [facility], [address] | | LAB | | | | [address], | | | | | | [place] [address] | | | | + + + + + + | % Monocytes | 7.00Comment: Testing | % | EXTERNAL | | | | performed at [facility], [address] | | LAB | | | | [address], | | | | | | [place] [address] | | | | + + + + + + | % | 0.21Comment: Testing | % | EXTERNAL | | | Eosinophils | performed at [facility], [address] | | LAB | | | | [address], | | | | | | [place] [address] | | | | + + + + + + | % Basophils | 0.43Comment: Testing | % | EXTERNAL | | | | performed at [facility], [address] | | LAB | | | | [address], | | | | | | [place] [address] | | | | + + + + + + | Absolute | 8.17 (H)Comment: Testing | 1.90 - 7.40 | EXTERNAL | | | Segmented | performed at [facility], [address] | K/uL | LAB | | | Neutrophils | [address], | | | | | | [place] [address] | | | | + + + + + + | Absolute | 2.24Comment: Testing | 1.00 - 3.90 | EXTERNAL | | | Lymphocytes | performed at [facility], [address] | K/uL | LAB | | | | [address], | | | | | | [place] [address] | | | | + + + + + + | Absolute | 0.79Comment: Testing | 0.00 - 0.80 | EXTERNAL | | | Monocytes | performed at [facility], [address] | K/uL | LAB | | | | [address], | | | | | | [place] [address] | | | | + + + + + + | Absolute | 0.02Comment: Testing | 0.00 - 0.50 | EXTERNAL | | | Eosinophils | performed at [facility], [address] | K/uL | LAB | | | | [address], | | | | | | [place] [address] | | | | + + + + + + | Absolute | 0.05Comment: Testing | 0.00 - 0.10 | EXTERNAL | | | Basophils | performed at [facility], [address] | K/uL | LAB | | | | [address], | | | | | | [place] [address] | | | | + + [...] | | | | | [place] [address] | | | | + + + [...] EXTERNAL | | | | performed at [facility], [address] | | LAB | | | | [address] [place], | | | | | | [place] [address] | | | | + + + [...] EXTERNAL | | | | performed at [facility], [address] | mmol/L | LAB | | | | [address] [place], | | | | | | [place] [address] | | | | + + + + + + | K | 3.9Comment: Testing | 3.5 - 4.9 | EXTERNAL | | | | performed at [facility], [address] | mmol/L | LAB | | | | [address] [place], | | | | | | [place] [address] | | | | + + + + + + | Cl | 106Comment: Testing | 99 - 109 mmol/L | EXTERNAL | | | | performed at [facility], [address] | | LAB | | | | [address], | | | | | | [place] [address] | | | | + + + + + + | CO2 | 20 (L)Comment: Testing | 23 - 32 mmol/L | EXTERNAL | | | | performed at [facility], [address] | | LAB | | | | [address], | | | | | | [place] [address] | | | | + + + + + + | Anion Gap | 8Comment: Testing | 5 - 20 mmol/L | EXTERNAL | | | | performed at [facility], [address] | | LAB | | | | [address], | | | | | | [place] [address] | | | | + + + + + + | Glucose, | 98Comment: Testing | 65 - 99 mg/dL | EXTERNAL | | | Fasting | performed at [facility], [address] | | LAB | | | | [address], | | | | | | [place] [address] | | | | + + + + + + | BUN | 19Comment: Testing | 8 - 25 mg/dL | EXTERNAL | | | | performed at [facility], [address] | | LAB | | | | [address], | | | | | | [place] [address] | | | | + + + + + + | Creatinine | 0.69Comment: Testing | 0.50 - 1.00 | EXTERNAL | | | | performed at [facility], [address] | mg/dL | LAB | | | | [address], | | | | | | [place] [address] | | | | + + + + + + | BUN/Creatin | 28Comment: Testing | | EXTERNAL | | | ine Ratio | performed at [facility], [address] | | LAB | | | | [address], | | | | | | [place] [address] | | | | + + + + + + | Calcium | 8.5Comment: Testing | 8.5 - 10.5 | EXTERNAL | | | | performed at [facility], [address] | mg/dL | LAB | | | | [address] [place], | | | | | | [place] [address] | | | | + + + + + + | Protein, | 5.9 (L)Comment: Testing | 6.3 - 8.2 g/dL | EXTERNAL | | | Total | performed at [facility], [address] | | LAB | | | | [address] [place], | | | | | | [place] [address] | | | | + + + + + + | Albumin | 2.8 (L)Comment: Testing | 3.6 - 5.0 g/dL | EXTERNAL | | | | performed at [facility], [address] | | LAB | | | | [address] [place], | | | | | | [place] [address] | | | | + + + + + + | Globulin | 3.1Comment: Testing | 1.3 - 4.9 g/dL | EXTERNAL | | | | performed at [facility], [address] | | LAB | | | [address], | | | | | | [place] [address] | | | | + + + + + + | A/G Ratio | 0.9 (L)Comment: Testing | 1.0 - 2.4 | EXTERNAL | | | | performed at [facility], [address] | | LAB | | | | [address], | | | | | | [place] [address] | | | | + + + [...] | | | | | [place] [address] | | | | + + + + + + | AST | 18Comment: Testing | 10 - 45 U/L | EXTERNAL | | | | performed at [facility], [address] | | LAB | | | [address], | | | | | | [place] [address] | | | | + + + + + + | ALT | 13Comment: Testing | 10 - 65 U/L | EXTERNAL | | | | performed at [facility], [address] | | LAB | | | | [address], | | | | | | [place] [address] | | | | + + + [...] [place], | | | | | | [place] [address] | | | | + + + [...] | | | | performed at [facility] | | | | | | [address] [place], [place] | | | | | | [address] | | | | + + + [...] K/uL | LAB | | | | [facility];[address] | | | | | | [place] [address] | | | | + + + + + + | Non- | 4.10Comment: Testing | 3.70 - 5.10 | EXTERNAL | | | Red Blood | performed at [facility];[address] | M/uL | LAB | | | Cells | [address];[place] | | | | | Counted | [address] | | | | + + + + + + | Hemoglobin | 12.9Comment: Testing | 11.3 - 15.5 | EXTERNAL | | | | performed at [facility];[address] | g/dL | LAB | | | | [address];[place] | | | | | | [address] | | | | + + + + + + | Hematocrit, | 40.0Comment: Testing | 34.0 - 46.0 % | EXTERNAL | | | POC | performed at [facility];[address] | | LAB | | | | [address];[place] | | | | | | [address] | | | | + + + + + + | MCV | 97.6Comment: Testing | 80.0 - 100.0 fl | EXTERNAL | | | | performed at [facility];[address] | | LAB | | | | [address];[place] | | | | | | [address] | | | | + + + + + + | MCH | 31.4Comment: Testing | 27.0 - 34.0 pg | EXTERNAL | | | | performed at [facility];[address] | | LAB | | | | [address];[place] | | | | | | [address] | | | | + + + + + + | MCHC | 32.1Comment: Testing | 32.0 - 35.5 | EXTERNAL | | | | performed at [facility];[address] | g/dL | LAB | | | | [address];[place] | | | | | | [address] | | | | + + + + + + | RDW-CV | 56.0 (H)Comment: Testing | 37 - 53 fl | EXTERNAL | | | | performed at [facility];[address] | | LAB | | | | [address];[place] | | | | | | [address] | | | | + + + + + + | Platelet | 323Comment: Testing | 150 - 400 K/uL | EXTERNAL | | | Count | performed at [facility];[address] | | LAB | | | Plasma | [address];[place] | | | | | | [address] | | | | + + + + + + | MPV | 7.9Comment: Testing | fl | EXTERNAL | | | | performed at [facility];[address] | | LAB | | | | [address];[place] | | | | | | [address] | | | | + + + + + + | Differentia | AUTOMATEDComment: | | EXTERNAL | | | l Type | Testing performed at | | LAB | | | | [facility];[address];[place] [address] | | | | + + + + + + | % Segmented | 72.96Comment: Testing | % | EXTERNAL | | | | performed at [facility];[address] | | LAB | | | Neutrophils | [address];[place] | | | | | | [address] | | | | + + + + + + | % | 19.69Comment: Testing | % | EXTERNAL | | | Lymphocytes | performed at [facility];[address] | | LAB | | | | [address];[place] | | | | | | [address] | | | | + + + + + + | % Monocytes | 6.53Comment: Testing | % | EXTERNAL | | | | performed at [facility];[address] | | LAB | | | | [address];[place] | | | | | | [address] | | | | + + + + + + | % | 0.04Comment: Testing | % | EXTERNAL | | | Eosinophils | performed at [facility];[address] | | LAB | | | | [address];[place] | | | | | | [address] | | | | + + + + + + | % Basophils | 0.78Comment: Testing | % | EXTERNAL | | | | performed at [facility];[address] | | LAB | | | | [address];[place] | | | | | | [address] | | | | + + + + + + | Absolute | 9.79 (H)Comment: Testing | 1.90 - 7.40 | EXTERNAL | | | Segmented | performed at [facility];[address] | K/uL | LAB | | | Neutrophils | [address];[place] | | | | | | [address] | | | | + + + + + + | Absolute | 2.64Comment: Testing | 1.00 - 3.90 | EXTERNAL | | | Lymphocytes | performed at [facility] [facility];888 | K/uL | LAB | | | | [address];[place] | | | | | | [address] | | | | + + + + + + | Absolute | 0.88 (H)Comment: Testing | 0.00 - 0.80 | EXTERNAL | | | Monocytes | performed at [facility];888 | K/uL | LAB | | | | [address];[place] | | | | | | [address] | | | | + + + + + + | Absolute | 0.01Comment: Testing | 0.00 - 0.50 | EXTERNAL | | | Eosinophils | performed at [facility];888 | K/uL | LAB | | | | [address];[place] | | | | | | [address] | | | | + + + + + + | Absolute | 0.11 (H)Comment: Testing | 0.00 - 0.10 | EXTERNAL | | | Basophils | performed at [facility];888 | K/uL | LAB | | | | [address];[place] | | | | | | [address] | | | | + + + [...] | | | | performed at [facility];888 | | LAB | | | | [address];[place], [place] | | | | | | [address] | | | | + + + [...] | | | | performed at [facility] | | LAB | | | | [address];[place] | | | | | | [address] | | | | + + + [...] | | | | performed at [facility];888 | mmol/L | LAB | | | | [address];[place] | | | | | | [address] | | | | + + + + + + | K | 4.0Comment: Testing | 3.5 - 4.9 | EXTERNAL | | | | performed at [facility];888 | mmol/L | LAB | | | | [address];[place] | | | | | | [address] | | | | + + + + + + | Cl | 110 (H)Comment: Testing | 99 - 109 mmol/L | EXTERNAL | | | | performed at [facility];888 | | LAB | | | | [address];[place] | | | | | | [address] | | | | + + + + + + | CO2 | 23Comment: Testing | 23 - 32 mmol/L | EXTERNAL | | | | performed at [facility];[address] | | LAB | | | | [address];[place] | | | | | | [address] | | | | + + + + + + | Anion Gap | 12Comment: Testing | 5 - 20 mmol/L | EXTERNAL | | | | performed at [facility];[address] | | LAB | | | | [address];[place] | | | | | | [address] | | | | + + + + + + | Glucose, | 97Comment: Testing | 65 - 99 mg/dL | EXTERNAL | | | Fasting | performed at [facility];[address] | | LAB | | | | [address];[place] | | | | | | [address] | | | | + + + + + + | BUN | 19Comment: Testing | 8 - 25 mg/dL | EXTERNAL | | | | performed at [facility];[address] | | LAB | | | | [address];[place] | | | | | | [address] | | | | + + + + + + | Creatinine | 0.84Comment: Testing | 0.50 - 1.00 | EXTERNAL | | | | performed at [facility];888 | mg/dL | LAB | | | | [address];[place] | | | | | | [address] | | | | + + + + + + | BUN/Creatin | 23Comment: Testing | | EXTERNAL | | | ine Ratio | performed at [facility];[address] | | LAB | | | | [address];[place] | | | | | | [address] | | | | + + + + + + | Calcium | 8.1 (L)Comment: Testing | 8.5 - 10.5 | EXTERNAL | | | | performed at [facility];888 | mg/dL | LAB | | | | [address];[place] | | | | | | [address] | | | | + + + + + + | Protein, | 6.5Comment: Testing | 6.3 - 8.2 g/dL | EXTERNAL | | | Total | performed at [facility];888 | | LAB | | | | [address];[place] | | | | | | [address] | | | | + + + + + + | Albumin | 2.4 (L)Comment: Testing | 3.6 - 5.0 g/dL | EXTERNAL | | | | performed at [facility];888 | | LAB | | | | [address];[place] | | | | | | [address] | | | | + + + + + + | Globulin | 4.1Comment: Testing | 1.3 - 4.9 g/dL | EXTERNAL | | | | performed at [facility];[address] | | LAB | | | | [address];[place] | | | | | | [address] | | | | + + + + + + | A/G Ratio | 0.6 (L)Comment: Testing | 1.0 - 2.4 | EXTERNAL | | | | performed at [facility];[address] | | LAB | | | | [address];[place] | | | | | | [address] | | | | + + + + + + | Bilirubin | 0.5Comment: Testing | 0.1 - 1.5 mg/dL | EXTERNAL | | | Total | performed at [facility];[address] | | LAB | | | | [address];[place] | | | | | | [address] | | | | + + + + + + | ALP, | 164 (H)Comment: Testing | 35 - 115 U/L | EXTERNAL | | | External | performed at [facility];[address] | | LAB | | | | [address];[place] | | | | | | [address] | | | | + + + + + + | AST | 18Comment: Testing | 10 - 45 U/L | EXTERNAL | | | | performed at [facility];[address] | | LAB | | | | [address];[place] | | | | | | [address] | | | | + + + + + + | ALT | 19Comment: Testing | 10 - 65 U/L | EXTERNAL | | | | performed at [facility];[address] | | LAB | | | | [address];[place] | | | | | | [address] | | | | + + + [...] | | | | | at [facility];[address] [place] [address] | | | | | | [facility];[place] [address] | | | | + + + [...] | | | | performed at [facility];888 | | | | | | [address];[place], [place] | | | | | | [address] | | | | + + + [...] | | | | performed at [facility];888 | | LAB | | | | [address];[place], [place] | | | | | | [address] | | | | + + [...] | | | | | at [facility];[address] | | | | | | [address];[place] [address] | | | | + + + [...] | | | | performed at [facility];88 | | | | | | [address] [facility];[place], [place] | | | | | | [address] | | | | + + + [...] K/uL | LAB | | | | [facility], [address] | | | | | | [place] | | | | | | [address] | | | | + + + + + + | Non- | 4.76Comment: Testing | 3.70 - 5.10 | EXTERNAL | | | Red Blood | performed at [facility], [address] | M/uL | LAB | | | Cells | [address], | | | | | Counted | [place] [address] | | | | + + + + + + | Hemoglobin | 15.1Comment: Testing | 11.3 - 15.5 | EXTERNAL | | | | performed at [facility], [address] | g/dL | LAB | | | | [address], | | | | | | [place] [address] | | | | + + + + + + | Hematocrit, | 45.6Comment: Testing | 34.0 - 46.0 % | EXTERNAL | | | POC | performed at [facility], [address] | | LAB | | | | [address], | | | | | | [place] [address] | | | | + + + + + + | MCV | 95.9Comment: Testing | 80.0 - 100.0 fl | EXTERNAL | | | | performed at [facility], [address] | | LAB | | | | [address], | | | | | | [place] [address] | | | | + + + + + + | MCH | 31.7Comment: Testing | 27.0 - 34.0 pg | EXTERNAL | | | | performed at [facility], [address] | | LAB | | | | [address], | | | | | | [place] [address] | | | | + + + + + + | MCHC | 33.1Comment: Testing | 32.0 - 35.5 | EXTERNAL | | | | performed at [facility], [address] | g/dL | LAB | | | | [address], | | | | | | [place] [address] | | | | + + + + + + | RDW-CV | 53.8 (H)Comment: Testing | 37 - 53 fl | EXTERNAL | | | | performed at [facility], [address] | | LAB | | | | [address], | | | | | | [place] [address] | | | | + + + + + + | Platelet | 355Comment: Testing | 150 - 400 K/uL | EXTERNAL | | | Count | performed at [facility], [address] | | LAB | | | Plasma | [address], | | | | | | [place] [address] | | | | + + + + + + | MPV | 8.4Comment: Testing | fl | EXTERNAL | | | | performed at [facility], [address] | | LAB | | | | [address], | | | | | | [place] [address] | | | | + + + + + + | Differentia | MANUALComment: Testing | | EXTERNAL | | | l Type | performed at [facility], [address] | | LAB | | | | [address], | | | | | | [place] [address] | | | | + + + + + + | Segmented | 87Comment: Testing | % | EXTERNAL | | | Neutrophils | performed at [facility], [address] | | LAB | | | Manual | [address], | | | | | | [place] [address] | | | | + + + + + + | % Bands | 6Comment: Testing | % | EXTERNAL | | | | performed at [facility], [address] | | LAB | | | | [address], | | | | | | [place] [address] | | | | + + + + + + | Lymphocytes | 7Comment: Testing | % | EXTERNAL | | | Manual | performed at [facility], [address] | | LAB | | | | [address], | | | | | | [place] [address] | | | | + + + + + + | Absolute | 12.66 (H)Comment: | 1.90 - 7.40 | EXTERNAL | | | Neutrophils | Testing performed at | K/uL | LAB | | | | [facility], [address] | | | | | | [place] | | | | | | [address] | | | | + + + + + + | Bands | 0.87 (H)Comment: Testing | 0.00 - 0.20 | EXTERNAL | | | Manual | performed at [facility], [address] | K/uL | LAB | | | | [address], | | | | | | [place] [address] | | | | + + + + + + | Absolute | 1.02Comment: Testing | 1.00 - 3.90 | EXTERNAL | | | Lymphocytes | performed at [facility], [address] | K/uL | LAB | | | | [address], | | | | | | [place] [address] | | | | + + + + + + | RBC | NORMAL PLT MORPHComment: | | EXTERNAL | | | Morphology | NORMAL RBC MORPHTesting | | LAB | | | | performed at [facility], [address] | | | | | | [address], | | | | | | [place] [address] | | | | + + + [...] | | | | performed at [facility];88 | | LAB | | | | [address];[place], [place] | | | | | | [address] | | | | + + + [...] | | | | performed at [facility] | | LAB | | | | [facility];[place], [place] | | | | | | [address] | | | | + + [...] | | | | performed at [facility];[address] | | LAB | | | | [address];[place], [place] | | | | | | [address] | | | | + + + [...] | | | | performed at [facility];888 | mmol/L | LAB | | | | [address];[place] | | | | | | [address] | | | | + + + + + + | K | 3.7Comment: Testing | 3.5 - 4.9 | EXTERNAL | | | | performed at [facility];888 | mmol/L | LAB | | | | [address];[place] | | | | | | [address] | | | | + + + + + + | Cl | 103Comment: Testing | 99 - 109 mmol/L | EXTERNAL | | | | performed at [facility];[address] | | LAB | | | | [address];[place] | | | | | | [address] | | | | + + + + + + | CO2 | 23Comment: Testing | 23 - 32 mmol/L | EXTERNAL | | | | performed at [facility];[address] | | LAB | | | | [address];[place] | | | | | | [address] | | | | + + + + + + | Anion Gap | 15Comment: Testing | 5 - 20 mmol/L | EXTERNAL | | | | performed at [facility];[address] | | LAB | | | | [address];[place] | | | | | | [address] | | | | + + + + + + | Glucose, | 150 (H)Comment: Testing | 65 - 99 mg/dL | EXTERNAL | | | Fasting | performed at [facility];[address] | | LAB | | | | [address];[place] | | | | | | [address] | | | | + + + + + + | BUN | 9Comment: Testing | 8 - 25 mg/dL | EXTERNAL | | | | performed at [facility];[address] | | LAB | | | | [address];[place] | | | | | | [address] | | | | + + + + + + | Creatinine | 0.76Comment: Testing | 0.50 - 1.00 | EXTERNAL | | | | performed at [facility];888 | mg/dL | LAB | | | | [address];[place] | | | | | | [address] | | | | + + + + + + | BUN/Creatin | 12Comment: Testing | | EXTERNAL | | | ine Ratio | performed at [facility];[address] | | LAB | | | | [address];[place] | | | | | | [address] | | | | + + + + + + | Calcium | 8.6Comment: Testing | 8.5 - 10.5 | EXTERNAL | | | | performed at [facility];888 | mg/dL | LAB | | | | [address];[place] | | | | | | [address] | | | | + + + + + + | Protein, | 7.3Comment: Testing | 6.3 - 8.2 g/dL | EXTERNAL | | | Total | performed at [facility];[address] | | LAB | | | | [address];[place] | | | | | | [address] | | | | + + + + + + | Albumin | 2.6 (L)Comment: Testing | 3.6 - 5.0 g/dL | EXTERNAL | | | | performed at [facility];[address] | | LAB | | | | [address];[place] | | | | | | [address] | | | | + + + + + + | Globulin | 4.7Comment: Testing | 1.3 - 4.9 g/dL | EXTERNAL | | | | performed at [facility];[address] | | LAB | | | | [address];[place] | | | | | | [address] | | | | + + + + + + | A/G Ratio | 0.6 (L)Comment: Testing | 1.0 - 2.4 | EXTERNAL | | | | performed at [facility];[address] | | LAB | | | | [address];[place] | | | | | | [address] | | | | + + + + + + | Bilirubin | 0.9Comment: Testing | 0.1 - 1.5 mg/dL | EXTERNAL | | | Total | performed at [facility];[address] | | LAB | | | | [address];[place] | | | | | | [address] | | | | + + + + + + | ALP, | 246 (H)Comment: Testing | 35 - 115 U/L | EXTERNAL | | | External | performed at [facility];[address] | | LAB | | | | [address];[place] | | | | | | [address] | | | | + + + + + + | AST | 26Comment: Testing | 10 - 45 U/L | EXTERNAL | | | | performed at [facility];[address] | | LAB | | | | [address];[place] | | | | | | [address] | | | | + + + + + + | ALT | 23Comment: Testing | 10 - 65 U/L | EXTERNAL | | | | performed at [facility];[address] | | LAB | | | | [address];[place] | | | | | | [address] | | | | + + + [...] | | | | | at [facility];[address];[place] [address] | | | | + + [...] | Testing performed | | | at [facility], [address] [place] [address] | | + + + + +---------+ [...] EXTERNAL | | | | performed at [facility], [address] | | LAB | | | | [address], | | | | | | [place] [address] | | | | + + + + + + | Clarity, | CLEARComment: Testing | | EXTERNAL | | | Urine | performed at [facility], [address] | | LAB | | | | [address], | | | | | | [place] [address] | | | | + + + + + + | Specific | 1.007Comment: Testing | 1.002 - 1.030 | EXTERNAL | | | Shiloh, | performed at [facility], [address] | | LAB | | | Urine | [address], | | | | | | [place] [address] | | | | + + + + + + | Leukocyte | SMALL (A)Comment: | | EXTERNAL | | | Esterase, | Testing performed at | | LAB | | | Urine | [facility], [address] | | | | | | [place] | | | | | | [address] | | | | + + + + + + | Nitrite, | NEGATIVEComment: Testing | | EXTERNAL | | | Urine | performed at [facility], [address] | | LAB | | | | [address], | | | | | | [place] [address] | | | | + + + + + + | Urobilinoge | 0.2Comment: Testing | mg/dL | EXTERNAL | | | n, Urine | performed at [facility], [address] | | LAB | | | | [address], | | | | | | [place] [address] | | | | + + + + + + | Protein, | NEGATIVEComment: Testing | mg/dL | EXTERNAL | | | Urine | performed at [facility], [address] | | LAB | | | | [address], | | | | | | [place] [address] | | | | + + + + + + | pH, Urine | 6.5Comment: Testing | 5.0 - 8.0 | EXTERNAL | | | | performed at [facility], [address] | | LAB | | | | [address], | | | | | | [place] [address] | | | | + + + + + + | Blood, | SMALL (A)Comment: | | EXTERNAL | | | Urine | Testing performed at | | LAB | | | | [facility], [address] | | | | | | [place] | | | | | | [address] | | | | + + + + + + | Ketones | TRACE (A)Comment: | mg/dL | EXTERNAL | | | | Testing performed at | | LAB | | | | [facility], [address] | | | | | | [place] | | | | | | [address] | | | | + + + + + + | Bilirubin, | NEGATIVEComment: Testing | | EXTERNAL | | | Urine | performed at [facility], [address] | | LAB | | | | [address], | | | | | | [place] [address] | | | | + + + + + + | Glucose, | NEGATIVEComment: Testing | mg/dL | EXTERNAL | | | Urine | performed at [facility], [facility] | | LAB | | | | [address], | | | | | | [place] [address] | | | | + + + [...] | | | | | [place] [address] | | | | + + + + + + | RBC, UA | 1-5Comment: Testing | 0 - 5 /hpf | EXTERNAL | | | | performed at [facility], [address] | | LAB | | | [address], | | | | | | [place] [address] | | | | + + + + + + | Epithelial | 16-25Comment: Testing | /lpf | EXTERNAL | | | Cells | performed at [facility], [address] | | LAB | | | | [address], | | | | | | [place] [address] | | | | + + + + + + | Bacteria, | NONE SEENComment: | | EXTERNAL | | | UA | CULTURE TO FOLLOWTesting | | LAB | | | | performed at [facility], [address] | | | | | [address], | | | | | | [place] [address] | | | | + + + + + + | HYALINE | NONE SEENComment: | | EXTERNAL | | | CASTS UA | Testing performed at | | LAB | | | | [facility], [address] | | | | | | [place] | | | | | | [address] | | | | + + + [...] | | | | performed at [facility];[address] | | | | | | [address] [facility];[place], [place] | | | | | | [address] | | | | + + + [...] EXTERNAL LAB | | Testing performed at [address];[place] [address] MRSA PCR | | | NEGATIVE Testing performed at | | | [address];[place] [address] | | + + + + +---------+ [...] | | | | performed at [facility];[address] | | | | | | [facility];[place], [place] | | | | | | [address] | | | | + + + [...] K/uL | LAB | | | | [facility];[address];[place] [address] | | | | + + + + + + | Non- | 4.56Comment: Testing | 3.70 - 5.10 | EXTERNAL | | | Red Blood | performed at [facility];888 | M/uL | LAB | | | Cells | [address];[place] | | | | | Counted | [address] | | | | + + + + + + | Hemoglobin | 14.5Comment: Testing | 11.3 - 15.5 | EXTERNAL | | | | performed at [facility];888 | g/dL | LAB | | | | [address];[place] | | | | | | [address] | | | | + + + + + + | Hematocrit, | 43.4Comment: Testing | 34.0 - 46.0 % | EXTERNAL | | | POC | performed at [facility];[address] | | LAB | | | | [address];[place] | | | | | | [address] | | | | + + + + + + | MCV | 95.2Comment: Testing | 80.0 - 100.0 fl | EXTERNAL | | | | performed at [facility];[address] | | LAB | | | | [address];[place] | | | | | | [address] | | | | + + + + + + | MCH | 31.8Comment: Testing | 27.0 - 34.0 pg | EXTERNAL | | | | performed at [facility];[address] | | LAB | | | | [address];[place] | | | | | | [address] | | | | + + + + + + | MCHC | 33.4Comment: Testing | 32.0 - 35.5 | EXTERNAL | | | | performed at [facility];888 | g/dL | LAB | | | | [address];[place] | | | | | | [address] | | | | + + + + + + | RDW-CV | 53.4 (H)Comment: Testing | 37 - 53 fl | EXTERNAL | | | | performed at [facility];[address] | | LAB | | | | [address];[place] | | | | | | [address] | | | | + + + + + + | Platelet | 335Comment: Testing | 150 - 400 K/uL | EXTERNAL | | | Count | performed at [facility];[address] | | LAB | | | Plasma | [address];[place] | | | | | | [address] | | | | + + + + + + | MPV | 7.8Comment: Testing | fl | EXTERNAL | | | | performed at [facility];[address] | | LAB | | | | [address];[place] | | | | | | [address] | | | | + + + + + + | Differentia | AUTOMATEDComment: | | EXTERNAL | | | l Type | Testing performed at | | LAB | | | | [facility];[address];[place] [address] | | | | + + + + + + | % Segmented | 68.15Comment: Testing | % | EXTERNAL | | | | performed at [facility];[address] | | LAB | | | Neutrophils | [address];[place] | | | | | | [address] | | | | + + + + + + | % | 21.73Comment: Testing | % | EXTERNAL | | | Lymphocytes | performed at [facility];[address] | | LAB | | | | [address];[place] | | | | | | [address] | | | | + + + + + + | % Monocytes | 9.37Comment: Testing | % | EXTERNAL | | | | performed at [facility];[address] | | LAB | | | | [address];[place] | | | | | | [address] | | | | + + + + + + | % | 0.18Comment: Testing | % | EXTERNAL | | | Eosinophils | performed at [facility];[address] | | LAB | | | | [address];[place] | | | | | | [address] | | | | + + + + + + | % Basophils | 0.57Comment: Testing | % | EXTERNAL | | | | performed at [facility];[address] | | LAB | | | | [address];[place] | | | | | | [address] | | | | + + + + + + | Absolute | 13.33 (H)Comment: | 1.90 - 7.40 | EXTERNAL | | | Segmented | Testing performed at | K/uL | LAB | | | Neutrophils | [facility];[address];[place] [address] | | | | + + + + + + | Absolute | 4.25 (H)Comment: Testing | 1.00 - 3.90 | EXTERNAL | | | Lymphocytes | performed at [facility];[address] | K/uL | LAB | | | | [address];[place] | | | | | | [address] | | | | + + + + + + | Absolute | 1.83 (H)Comment: Testing | 0.00 - 0.80 | EXTERNAL | | | Monocytes | performed at [facility];[address] | K/uL | LAB | | | | [address];[place] | | | | | | [address] | | | | + + + + + + | Absolute | 0.04Comment: Testing | 0.00 - 0.50 | EXTERNAL | | | Eosinophils | performed at [facility];[address] | K/uL | LAB | | | | [address];[place] | | | | | | [address] | | | | + + + + + + | Absolute | 0.11 (H)Comment: Testing | 0.00 - 0.10 | EXTERNAL | | | Basophils | performed at [facility];[address] | K/uL | LAB | | | | [address];[place] | | | | | | [address] | | | | + + + [...] | | | | performed at [facility];[address] | | LAB | | | | [address];[place] | | | | | | [address] | | | | + + + [...] | | | | performed at [facility];[address] | | LAB | | | | [address];[place], [place] | | | | | | [address] | | | | + + + [...] | | | | performed at [facility];888 | mmol/L | LAB | | | | [address];[place] | | | | | | [address] | | | | + + + + + + | K | 3.1 (L)Comment: Testing | 3.5 - 4.9 | EXTERNAL | | | | performed at [facility];[address] | mmol/L | LAB | | | | [address];[place] | | | | | | [address] | | | | + + + + + + | Cl | 101Comment: Testing | 99 - 109 mmol/L | EXTERNAL | | | | performed at [facility];[address] | | LAB | | | | [address];[place] | | | | | | [address] | | | | + + + + + + | CO2 | 26Comment: Testing | 23 - 32 mmol/L | EXTERNAL | | | | performed at [facility];[address] | | LAB | | | | [address];[place] | | | | | | [address] | | | | + + + + + + | Anion Gap | 12Comment: Testing | 5 - 20 mmol/L | EXTERNAL | | | | performed at [facility];[address] | | LAB | | | | [address];[place] | | | | | | [address] | | | | + + + + + + | Glucose, | 109 (H)Comment: Testing | 65 - 99 mg/dL | EXTERNAL | | | Fasting | performed at [facility];[address] | | LAB | | | | [address];[place] | | | | | | [address] | | | | + + + + + + | BUN | 9Comment: Testing | 8 - 25 mg/dL | EXTERNAL | | | | performed at [facility];[address] | | LAB | | | | [address];[place] | | | | | | [address] | | | | + + + + + + | Creatinine | 0.69Comment: Testing | 0.50 - 1.00 | EXTERNAL | | | | performed at [facility];888 | mg/dL | LAB | | | | [address];[place] | | | | | | [address] | | | | + + + + + + | BUN/Creatin | 12Comment: Testing | | EXTERNAL | | | ine Ratio | performed at [facility];[address] | | LAB | | | | [address];[place] | | | | | | [address] | | | | + + + + + + | Calcium | 8.5Comment: Testing | 8.5 - 10.5 | EXTERNAL | | | | performed at [facility];888 | mg/dL | LAB | | | | [address];[place], [place] | | | | | | [address] [...] | | | | | at [facility];[address];[place] [address] | | | | + + + [...]
--- OUTSIDE RECORDS SUMMARY | ~2019-11-05 | XMS | Encounter Summary ---
Demographics + + + | Address | [address] | | | [place] [address] | + + + | Home Phone [...] Team Providers + +------+ + | Care Mangle Catcher Name | Role | Phone | + +------+ + | No, Physician | PCP | Unavailable | + +------+ + Encounter Details +--------+ + + + + | Date | Type | Department | Care Team | Description | +--------+ + + + + | 03/02/ | Orders Only | [facility] | Enrique Bocanegra, | | | 2016 | | GENERAL SURGERY 780 | MD [address] | | | | | [address] | [facility] [address] | | | | | [place], [place] | [place] [address] | | | | | [address] | [phone] | | | | | [phone] | | | +--------+ + + + [...]
--- OUTSIDE RECORDS SUMMARY | ~2019-11-05 | XMS | Encounter Summary ---
Demographics + + + | Address | [address] | | | [place] [address] | + + + | Home Phone [...] Team Providers + +------+ + | Care Flagman Name | Role | Phone | + +------+ + PCP | Unavailable | + +------+ + Encounter Details +--------+ + + + + | Date | Type | Department | Care Team | Description | +--------+ + + + + | 03/01/ | Hospital | [facility] | Conversion | | | 2017 | Encounter | [facility] | Transaction, | | | | | CLINIC [address] | Provider Unknown | | | | | [place], [place] | | | | | | [address] | (Fax) | | | | | [phone] | | | +--------+ + + + [...] 03/01/171843 Date of Service: 03/01/171842 Status: Signed Sales Broker: Laine Bryant RN (Registered Nurse) Called and spoke to LUKASZ Adamson lead at ED and notified pt 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 Per [facility] policy She state s understanding onver roshan Transaction, Provider Unknown - 03/01/2017 6:33 PM PST Pre-Procedure Instructions by Laine Bryant RN at 03/01/171832 Author: Laine Bryant RN Service: (none) Author Type: Registered Nurse Filed: 03/01/171835 Date of Service: 03/01/171832 Status: Signed Sales Broker: Laine Bryant RN (Registered Nurse) Lab called and CBC tube was clotted and K+ 2.3 CL. Called and spoke to pt. Spouse and advis ed to go to [facility] ED main campus due to critically low K+. He states he will do. Called and gave report to LUKASZ Adamson lead in ED onver roshan Transaction, Provider Unknown - 03/01/2017 5:25 PM PST Pre-Procedure Instructions by Laine Bryant RN at 03/01/171724 Author: Laine Bryant RN Service: (none) Author Type: Registered Nurse Filed: 03/01/171729 Date of Service: 03/01/171724 Status: Signed Sales Broker: Laine Bryant RN (Registered Nurse) AHA guidelines for non cardiac, non emergent surgery followed. METS score greater than 4. D oes not see a inspector plug seam. Denies any chest pain, SOB, or any [...] | | | Screen | performed at [facility];[address];[place], [place] | | | | | | [address] | | | | + + + [...] | | | PCRAbnormal Testing performed at [facility];[address] [facility];[place] [address] | | + + + + +---------+ [...] | | | | | performed at [facility] | | | | | | [facility];[place], [place] | | | | | | [address] | | | | + + + [...] | | | | | | at [facility];[address];[place] [address] | | | | + + + [...] + + | Historically converted procedure from [facility] Epic environment | EXTERNAL LAB [...]
--- OUTSIDE RECORDS SUMMARY | ~2019-11-05 | XMS | Encounter Summary ---
Demographics + + + | Address | [address] | | | [place] [address] | + + + | Home Phone [...] [place], [place] | | | | | [address] | | + + + + + | Cami Sawyer | ECON | Unknown | | + + + + + Care Team Providers + +------+ + | Care Senior Business Analyst Name | Role | Phone | [...] | Crohn's | Neel Vega MD | [address] | | | | | disease of | [facility] | [address] | | | | | both small | [facility] | [facility] | | | | | and large | CARE CL[facility]IC | [place], [place] | | | | | intestine | [address] | [address] | | | | | without | 2ND | Phone: | | | | | complication | [place], | [phone] | | | | | s | [place] [address] | Fax: | | | | | | Phone: | [phone] | | | | | | [phone] | | | | | | | Fax: | | | | | | | [phone] | | +--------+--------+ + + + + Encounter Details +--------+---------+ + + + | Date | Type | Department | Care Team | Description | +--------+---------+ + + + | 07/27/ | Office | Digestive Health | Trice Marie MD | Rectovaginal fistula | | 2016 | Visit | Center at [facility] [address] | [address] | (Primary Dx); | | | | [facility] | [facility], | Crohn's disease of | | | | for Health and | [place] [address] | both small and large | | | | Healing, [address] | [phone] | intestine with | | | | [place], [place] | | complication (HCC) | | | | [address] | | | | | | [phone] | | | +--------+---------+ + + + [...] Dimple in her vagina seen by her CARDIOLOGY FELLOW ~1995 For fibroids and vaginal bleeding, she underwent CUTR/bowel resection (1995). ~2005, she noticed liquid stool [...] Referral patient, I spent 62 minutes of [id number] time, of which more than half the [...] colonos copy was this past month at [facility] in [facility] with Dr. Krishna, which per patient [...] alcohol or use illicit drugs. Lives in [place] with her . FH: Family History: None [...] Recommendations: 1) Review outside colonoscopy completed at [facility] - request has been sent 2) Plan for flex sig locally in [place] in 8 weeks time. Patient to send [...] | + +--------+ + + + | NC ANOSCOPY, DIAG | Routin | 08/04/2015 | [...]
--- OUTSIDE RECORDS SUMMARY | ~2019-11-05 | XMS | Encounter Summary ---
Demographics + + + | Address | [address] | | | [place] [address] | + + + | Home Phone [...] + | Author | [facility] | | | and [place] | + + + | Organization | [facility] | | | and [...] Team Providers + +------+ + | Care Report Specialist Name | Role | Phone | [...] Provider Unknown | | | | | [place], [place] | [phone] | | | | | [address] | | | | | | [phone] | | | +--------+ + + + [...]
--- OUTSIDE RECORDS SUMMARY | ~2019-11-05 | XMS | Encounter Summary ---
Demographics + + + | Address | [address] | | | [place] [address] | + + + | Home Phone [...] [place], [place] | | | | | [address] | | + + + + + | Cami Sawyer | ECON | Unknown | | + + + + + Care Team Providers + +------+ + | Care Shipyard Painter Apprentice Name | Role | Phone | [...] | | | | | Hospital | [place], [place] | | | | | | [place], [place] | [address] | | | | | | [address] | Phone: | | | | | | Phone: | [phone] | | | | | | [phone] | Fax: | | | | | | Fax: | [phone] | | | | | | [phone] | | +--------+--------+ + + + + [...] | | | | | | | [place], [place] | | | | | | | [address] | | | | | | | Phone: | | | | | | | [phone] | | | | | | | Fax: | | | | | | | [phone] | +--------+--------+ + + + + Diagnostic [...] | | | | EXTREMITY | [place] [address] | Mailcode: | | | | | BILAT | Phone: | [phone] | | | | | | [phone] | Physician's | | | | | | Fax: | Pavilion | | | | | | [phone] | [place], [place] | | | | | | | [address] | | | | | | | Phone: | | | | | | | [phone] | | | | | | | Fax: | | | | | | | [phone] | +--------+--------+ + + + + Diagnostic [...] | | | | | | | [place], [place] | | | | | | | [address] | | | | | | | Phone: | | | | | | | [phone] | | | | | | | Fax: | | | | | | | [phone] | +--------+--------+ + + + + Diagnostic [...] | | | Dariela Saab MD | [facility] [address] | | | | | TRANSTHORACI | | [address] | | | | | C | | [address] | | | | | ECHOCARDIOGR | | [place] | | | | | AM, ADULT | | [facility] | | | | | | | floor | | | | | | | [place], [place] | | | | | | | [address] | | | | | | | Phone: | | | | | | | [phone] | +--------+--------+ + + + + Diagnostic [...] | | | | EXTREMITY | [place] [address] | Mailcode: | | | | | BILATERAL | Phone: | [id number] | | | | | COMPLETE | [phone] | Physician's | | | | | | Fax: | Pavilion | | | | | | [phone] | [place], [place] | | | | | | | [address] | | | | | | | Phone: | | | | | | | [phone] | | | | | | | Fax: | | | | | | | [phone] | +--------+--------+ + + + + Diagnostic [...] | | | | COMPLETE | [place] [address] | Mailcode: | | | | | BILATERAL | Phone: | [phone] | | | | | | [phone] | Physician's | | | | | | Fax: | Pavilion | | | | | | [phone] | [place], [place] | | | | | | | [address] | | | | | | | Phone: | | | | | | | [phone] | | | | | | | Fax: | | | | | | | [phone] | +--------+--------+ + + + + Diagnostic [...] | | | | | | | [place], [place] | | | | | | | [address] | | | | | | | Phone: | | | | | | | [phone] | | | | | | | Fax: | | | | | | | [phone] | +--------+--------+ + + + + Diagnostic [...] | | | | | | | [place], [place] | | | | | | | [address] | | | | | | | Phone: | | | | | | | [phone] | | | | | | | Fax: | | | | | | | [phone] | +--------+--------+ + + + + Reason [...] + + | 03/12/ | Hospital | [facility] [address] | [address], | | | 2011 - | Encounter | [address] | [address] | | | | | [address] [facility] | [facility] [place] | | | 04/01/ | | [place], [place] | [address] | | | 2011 | | [address] | [phone] | | | | | [phone] | | | | | | | Chary Doherty, | | | | | | [address] | | | | | | [address] | | | | | | [place], [place] | | | | | | [address] | | | | | | [phone] | | | | | | | | | | | | Xin Rust | | | | | | MD Nena [address] | | | | | | [facility] [facility] | | | | | | [place], [place] | | | | | | [address] | | | | | | [phone] | | | | | | | | | | | | Osbaldo Garcia MD | | | | | | [address] | | | | | | [facility], | | | | | | [place] [address] | | | | | | [phone] | | | | | | | [...] Arterial thrombi: the patient was admitted to [facility] from [place] because she presented wit h nausea, bilious vomiting and was found by CT scan to have bowel wall thickening, 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 At arrival to [facility] it was learned that she did NOT indeed have ischemic colitis. 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 She underwent embolectomy on 03/17, which resulted in episcopal of flow and no loss of tissue [...] was agreed that the patient needed a group home treatment and we settled o n [...] Destination: Home Other Discharge Orders and Instructions suction dredge dumping supervisor your lovenox syringes at the physician's [...] forming. Please call your GI doctor in [facility] to arrange for your second [...] whether or not the INR is truly construction representative of anticoagulation. In patients with APLA [...] I NR on Tuesday. KIRIT MD YOCASTA [facility] DEPARTMENT: [id number]- [facility] Faculty PPV Place of Service:- Inpatient Date of Service: 04/01/2012 CSN: [id number] Suggested Modifier: Resident Involved: Yes Suggested CPT: 02572- Dishcarge < 30 min Electronically signed by [...] questions. Debi Oconnor MD GI/Hepatology Fellow Pager: [phone] INTERVAL HISTORY: MRI abdomen shows no abscess; [...] risk of emboli, I called Dr. Rodriges (section maintainer for her PCP) to coordinate f/u of [...] noted any additions above. KIRITMarisa RUST MD [facility] DEPARTMENT: [id number]- [facility] Faculty PPV Place of Service:- Inpatient Date of Service: 03/31/2012 CSN: [id number] Suggested Modifier: Resident Involved: Yes Suggested CPT: 99958- Subsequent, Detailed/high complex, 35 min Davonte De [...] state: J Gastroenterol. 2004 Jan;39(10):948-54. PubMed PMID: [id number]. Consulted [facility] for further studies on platelet [...] income that does not q ualify for ProtectWise. F/E/N Thrombosis ppx: Warfarin, Lovenox bridge Glucose: not indicated Diet: regular Code: Do Not Resuscitate/Do Not Intubate This patient was seen with GM3, refer to Attending and Resident notes for assessment and pl an. Nuñez Girard, Sub-Manager Brand Pgr: [phone] Ajay De La Rosa MD - 03/30/2012 [...] bridge after d/c until coumading therapeutic with rn coronary care unit through medication assistance program Hypoalbuminemia (03/14/2012) Assessment: [...] noted any additions above. KIRIT MD YOCASTA [facility] DEPARTMENT: [id number]- [facility] Faculty PPV Place of Service:- Inpatient Date of Service: 03/30/2012 CSN: [id number] Suggested Modifier: GC Resident Involved: Yes Suggested CPT: 73185- Subsequent, Detailed/high complex, 35 min Debi Yepez [...] follow closely Shaun SAEED GI Fellow Pg [phone] signed by Debi Oconnor MD at 03/30/2012 5:32 PM Jacoby Ko MD - 03/30/2012 10:25 AM PSTFormatting of this note might be different from the origi nal. [facility] DEPARTMENT OF SURGERY Daily Progress Note PROGRESS NOTE: Attending Physician: Xin Rust MD 03/31/2012 Subjective/Overnight Events: - latest CT shows resolution of abscess - no GI bleeding - no rectal/anal pain - tolerating reg diet MEDICATIONS: Reviewed in [facility] VITAL SIGNS: Refer to [facility] Intake/Output Summary (Last 24 hours) at 03/31/12 [...] concerns. Jacoby Tovar MD Surgery, R2 Diagnoses: [id number] Crohn disease This assessment and plan was [...] state: J Gastroenterol. 2004 Jan;39(10):948-54. PubMed PMID: [id number]. Consulted Heme for further studies on platelet [...] Nathan Weeks MD Internal Medicine PGY1 Pager [phone] ecilia Toney MD - 03/29/2012 6:37 PM [...] team. Debi Oconnor MD GI Fellow Pager [phone] signed by Debi Oconnor MD at 03/29/2012 [...] planning) Debi Oconnor MD Fellow, Gastroenterology pager: [phone] signed by Debi Oconnor MD at 03/29/2012 [...] note for this encounter. OSBALDO GARCIA MD [facility] [address] [place], [place] [address] Andrew Shah MD - 10:41 AM PST [facility] DEPARTMENT OF SURGERY Daily Progress Note PROGRESS NOTE: Attending Physician: Osbaldo Garcia MD 03/29/2012 Subjective/Overnight Events: - bowel prep initiated - Hct stable - no hematochezia or hemetemesis - MEDICATIONS: Reviewed in [facility] VITAL SIGNS: Refer to [facility] Intake/Output Summary (Last 24 hours) at 03/29/12 [...] GI Jacoby Tovar MD Surgery, R2 Diagnoses: [id number] Crohn disease This assessment and plan was [...] Mcfarlane MD - 03/29/2012 6:[facility] Author: OSBALDO GARCIA MD [...] myself provided conscious sedation. OSBALDO GARCIA MD [facility] [address] [place] [address] I spent 35 min in critical care (not including procedures) [facility] DEPARTMENT: MICU, [facility]- [id number] Place of Service: Date of Service: 03/29/2012 CSN: [id number] Modifiers:GC Resident Involved: yes Suggested CPT: 99441 Critical Care, Initial 30-74 minutes Carlton Godwin [...] 0659 03/29/12 0700 - 03/30/12 0659 Shift 2058-6965 8335-8174 9318-7076 Daily Total 7500-2068 8937-8463 6972-0649 Daily Total I N T A K E P.O. 1750 2525 4275 I.V. 934 3845 478 8758 Shift Total 934 3740 3450 8124 O U T P U T Urine 1075 2950 1875 5900 Urine 1075 2950 1875 5900 Other 575 542 152 5370 Measured Stool Output 350 425 775 Stool/Urine Mix 575 575 Shift Total 1650 3300 2300 7250 NET -808 920 2356 874 Intake/Output Summary (since admission) at 03/12/12 1910 Last data filed at 03/29/12 0547 Gross for the last 17 days Intake 75533 ml Output 37688 ml Net since Admission -77193 ml Physical Exam: General Appearance: middle aged [...] Carlton Betancourt DO PGY-1 Internal Medicine Pager [phone] Debi Yepez MD - 03/11 4:31 PM [...] questions. Debi Oconnor MD GI/Hepatology Fellow Pager: [phone] INTERVAL HISTORY: Episode of melena last night [...] patient in the past. OSBALDO GARCIA MD [facility] [address] [address] I spent 35 min in critical care (not including procedures) [facility] DEPARTMENT: [facility], [facility]- [id number] Place of Service: Date of Service: 03/28/2012 CSN: [id number] Modifiers:GC Resident Involved: yes Suggested CPT: 26673 Critical Care, Initial 30-74 minutes Carlton Godwin [...] 0659 03/28/12 07 - 03/29/12 0659 Shift 1956-4694 0463-0962 9063-4603 Daily Total 0421-0030 3993-6807 4185-5985 Daily Total I N T A K E P.O. 240 300 540 I.V. 404 404 934 934 Blood 1300 1300 Shift Total 926 604 2850 2244 934 934 O U T P U T Urine 500 1200 1700 1075 1075 Urine 500 1200 1700 1075 1075 Other 575 575 Stool 1 1 2 Stool/Urine Mix 575 575 Shift Total 500 1200 1700 1650 1650 NET -260 300 504 544 -715 -716 Intake/Output Summary (since admission) at 03/12/12 1910 Last data filed at 03/28/12 1400 Gross for the last 16 days Intake 66450 ml Output 56597 ml Net since Admission -21379 ml Physical Exam: General Appearance: tearful middle [...] Carlton Betancourt DO PGY-1 Internal Medicine Pager [phone] Andrew Shah MD - 6:52 AM PST [...] GENERAL MEDICINE CROSS COVER NOTE Author: MIRELA ZUNIAG DO Attending Physician: Xin Rust MD Hospital [...] Sukumar Zuniga DO Internal Medicine PGY-2 Pg [phone] Davonte De La Rosa MD - 03/27/2012 [...] noted any additions above. KIRIT MD YOCASTA [facility] DEPARTMENT: [id number]- [facility] Faculty PPV Place of Service:- Inpatient Date of Service: 03/27/2012 CSN: [id number] Suggested Modifier: GC Resident Involved: Yes Suggested CPT: 86848- Subsequent, Detailed/high complex, 35 min Marely Mccann [...] was discussed and formulated with gastroenterology at [facility], Dr. Hennessy. Please call with any questions. Debi Oconnor MD GI/Hepatology Fellow Pager: [phone] INTERVAL HISTORY: Imaging reviewed with radiology; too [...] IMAGING Dung Victor - 2 11:30 AM [facility] [[email or web address]] NOTE: Visited with Patient. 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 Contact Center Agent team will follow as needed. Chaplain Dung Riley M.Div., [facility] [phone] Pager #[phone]; #[phone] Xin De La Rosa MD - 7:31 [...] J Gastroenterol. 2004 Jan;39(10):948-54. PubMed PMID: [id number]. Consulted Heme for further studies on platelet [...] incom e that does not qualify for jsoe F/E/N Thrombosis ppx: Warfarin Glucose: not indicated Diet: regular Code: Do Not Resuscitate/Do Not Intubate This patient was seen with GM3, refer to Attending and Resident notes for assessment and pl an. ---- Joaquin Rivera, MS4 Pager # [phone] signed by Xin Rust MD at 03/27/2012 [...] noted any additions above. 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 Raphael Norman MD Internal Medicine, PGY-2 [address] [facility] wel[facility] MD - 03/25/2012 8:58 PM [facility]3 Internal Medicine Attending [...] not larger Resident spoke with vice president quality assurance who spoke with staff - they did [...] taking more PO if still low ask roofing sales representative to see Hypophosphatemia (03/14/2012) Assessment: rechecked [...] documentation and have noted any additions above. KRIIT MD YOCASTA [facility] DEPARTMENT: [id number]- [facility] Faculty PPV Place of Service:- Inpatient Date of Service: 03/25/2012 CSN: [id number] Suggested Modifier: GC Resident Involved: Yes Suggested CPT: 75784- Subsequent, Detailed/high complex, 35 min oaquin Rivera [...] J Gastroenterol. 2004 Jan;39(10):948- 54. PubMed PMID: [id number]. Consulted Heme for further studies on platelet [...] income that does not qualif y for ProtectWise F/E/N Thrombosis ppx: Warfarin Glucose: not indicated Diet: regular Code: Do Not Resuscitate/Do Not Intubate This patient was seen with GM3, refer to Attending and Resident notes for assessment and pl an. ---- Joaquin Rivera, MS4 Pager # [phone] Ajay De La Rosa MD - 03/24/2012 [...] drainage of abscess and coordination of care [facility] radiology reviewing perirectal abscess imaging, options for intervention and need for rep eat imagin, also with GI on plan. I personally interviewed the patient, performed the gunter elements of the physical examinatio n, and personally formulated the assessment and plan with the resident. I agree with the MS4 s documentation and have noted any additions above. KIRIT RUST MD [facility] DEPARTMENT: [id number]- [facility] Faculty PPV Place of Service:- Inpatient Date of Service: 03/24/2012 [facility]: [id number] Suggested Modifier: Resident Involved: Yes Suggested CPT: 48440- Subsequent, Detailed/high complex, 35 min Davonte De [...] J Gastroenterol. 2004 Jan;39(10):948- 54. PubMed PMID: [id number]. Consulted Heme for further studies on platelet [...] pl an. ---- VIVIANA Quiroz Pager # [phone] Ajay De La Rosa MD - 03/23/2012 10:44 PM [facility]3 Internal Medicine Attending [...] noted any additions above. KIRITMarisa RUST MD [facility] DEPARTMENT: [id number]- [facility] Faculty PPV Place of Service:- Inpatient Date of Service: 03/23/2012 CSN: [id number] Suggested Modifier: AKHIL Resident Involved: Yes Suggested CPT: 92671- Subsequent, Detailed/high complex, 35 min Davonte De [...] to be done today JERI DIAZ MD [address] [facility] [address] [place] [address] Xin De La Rosa MD - 03/23/2012 [...] state: J Gastroenterol. 2004 Jan;39(10):948-54. PubMed PMID: [id number]. Consulted Heme for further studies on platelet [...] has income that does not qualify for ProtectWise F/E/N Thrombosis ppx: Warfarin Glucose: not indicated Diet: regular Code: Do Not Resuscitate/Do Not Intubate This patient was seen with GM3, refer to Attending and Resident notes for assessment and pl an. ---- Joaquin Rivera, MS4 Pager # [phone] Ajay De La Rosa MD - 03/22/2012 10:50 PM [facility]3 Internal Medicine Attending [...] noted any additions above. KIRIT RUST MD [facility] DEPARTMENT: [id number]- [facility] Faculty PPV Place of Service:- Inpatient Date of Service: 03/22/2012 CSN: [id number] Suggested Modifier: Resident Involved: Yes Suggested CPT: 44864- Subsequent, Detailed/high complex, 35 min ox, Jeri [...] carotid duplex ordered today JERI DIAZ MD [facility] [address] [place] [address] Xin De La Rosa MD - 03/22/2012 [...] PTT in mixing 1:1 Neg cardiolipin, neg [id number]-[id number] Legionella Agg Urine pending Cultures: BLOOD CULTURE [...] barber: J Gastroenterol. 2004 Jan;39(10):948-54. PubMed PMID: [id number]. - Consult Heme for further studies on [...] an. ---- Joaquin Rivera, 4 Pager # [phone] Ajay De La Rosa MD - 03/21/2012 [...] 142/76 | Pulse 106[sinus tach per telecommunications facility examiner[ | Temp 37.7 C (99.9 F) | [...] -- also coordination of care with pharmD. [facility] DEPARTMENT: [id number]- [facility] Faculty PPV Place of Service:- Inpatient Date of Service: 03/21/2012 CSN: [id number] Suggested Modifier: GC Resident Involved: Yes Suggested CPT: 08248- Subsequent, Detailed/high complex, 35 min Jennifer Tolentino [facility] - 03/21/2012 12:38 PM PST . Vascular [...] y.o. Female with multiple complex medical problems; [facility] Vascular Surge ry consulted due to [...] as new baseline Ok to discharge per [facility] Vascular Surgeons once ambulating and medical issues are stable. Will continue to follow while in patient. [facility] Vascular Surgery Clinic, [facility] [address], phone number [phone] Please schedule followup appointment within 2-3 weeks of surgery for wound check. Dr. Sukumar Salgado, [facility] Vascular Surgery Attending. MERT OLIVA [facility] VASCULAR SURGERY [address] [place] [address] ham, Moses Asher MD - 03/21/2012 6:55 [...] w ill need to establish care with mold stripper so that further treatment options can be [...] and plan. Moses Anthony MD Neurology Manager Brand Pager [phone] oaquin Rivera - 02/2012 6:55 AM PST [...] an. ---- Joaquin Rivera, MS4 Pager # [phone] Xin De La Rosa M D - [...] noted any additions above. KIRIT MD YOCASTA [facility] DEPARTMENT: [id number]- [facility] Faculty PPV Place of Service:- Inpatient Date of Service: 03/20/2012 CSN: [id number] Suggested Modifier: Resident Involved: Yes Suggested CPT: 12234- Subsequent, Detailed/high complex, 35 min Jennifer Tolentino [...] y.o. Female with multiple complex medical problems; [facility] Vascular Surge ry consulted due to [...] chair as tolerated, RLE WBAT -Please obtain [facility] Arterial duplex ultrasound/DELORIS of both legs prior to discharge as n ew baselineObtain ABIs with waveforms To establish new blood-flow baseline Ok to discharge per [facility] Vascular Surgeons once ambulating and medical issues are stable. Will continue to follow while in patient. [facility] Vascular Surgery Clinic, [address] [address], phone number [phone] Please schedule followup appointment within 2-3 weeks of surgery for wound check. Dr. Sukumar Salgado, [facility] Vascular Surgery Attending. MERT OLIVA [facility] VASCULAR SURGERY [address] [place] [address] icprince, Raphael Saab MD - 03/20/2012 7:58 [...] plan. Raphael Norman MD Internal Medicine, PGY-2 81901 oaquin Rivera - 7:58 AM PST Medicine [...] an. ---- Joaquin Rivera, MS4 Pager # [phone] Juma Pimentel MD - 03/19/2012 3:35 PM PST Inpatient Vascular Surgery Progress Note Hospital Day:7 Author; JUMA CARRINGTNO MD Attending Physician: Chary Doherty MD 24 [...] record is Dr. Salgado. JUMA CARRINGTON MD [facility] [address] [place] [address] Chary Moore M D - 03/19/2012 9:14 [...] note from 03/14 for details. Therefore the avpn-nzux-hmuqc plan givens s been to allow her [...] plan. Lovenox bridge to be covered by [facility]. 9) Occlusive thrombus 10) Hypoalbuminemia 11) Hypophosphatemia 12) TIA (transient ischemic attack) - with PFO 13) PFO (patent foramen ovale) - plan is for lifelong coumadin. No additional benefit from device closure per CLOSURE I trial. Chary Doherty MD Chief Resident, Internal Medicine Pager: [phone] [facility] DEPARTMENT: Hosp- [id number] Place of Service: Date of Service: 03/19/2012 CSN: [id number] Modifiers:GC Resident Involved: Yes Suggested CPT: 07927 Subsequent Visit Detailed/High complexity 35 min I [...] will need to establish c are with mold stripper so that further treatment options can be [...] and plan. Moses Anthony MD Neurology Manager Brand Pager [phone] Jose Antonio Baker MD - 03/18/2012 1:01 [...] outpt GI, plans to establish care in [place], perhaps Dr. Byrd. Transitioning to PO meds, [...] Doherty MD Chief Resident, Internal Medicine Pager: [phone] [facility] DEPARTMENT: Hosp- [id number] Place of Service: Date of Service: 03/18/2012 CSN: [id number] Modifiers: Resident Involved: Yes Suggested CPT: 29967 Subsequent Visit Exp Prob Foc/Mod Complexity 25 [...] Date 03/18/12 07 - 03/19/12 0659 Shift 8645-4295 5303-6089 6950-1147 24 Hour Total I N T A K E P.O. 620 620 I.V. 20 20 40 Shift Total 640 20 660 O U T P U T Urine 675 100 775 Other 400 400 Shift Total 214 399 7657 Weight (kg) 74.1 74.1 74.1 74.1 General: [...] refusing). Will need to establish care with mold stripper so that further treatment options can be [...] MS4 note. Moses Anthony MD Neurology Manager Brand Pager [phone] signed by Moses Asher MD at 03/18/2012 9:50 PM [facility] [[email or web address]]Serenity Rivera - 03/18/2012 9:18 AM PST Medicine [...] an. ---- Joaquin Rivera, MS4 Pager # [phone] Chary Moore MD - 03/17/2012 8:39 PM [...] refusing). Will need to establish care with mold stripper so this can be discussed as outpt [...] Doherty MD Chief Resident, Internal Medicine Pager: [phone] [facility] DEPARTMENT: Hosp- [id number] Place of Service: IP - Date of Service: 03/17/2012 CSN: [id number] Modifiers:GC Resident Involved: Yes Suggested CPT: 59020 Subsequent Visit Detailed/High complexity 35 min I [...] at end of case. MIRELA SALGADO MD [facility] [address] [address] [place] [address] ham, Gloria Lawson MD - 1 05/18/2011 [...] until she's therapeutic with her coumadin and [facility] has agreed to provide discounted INR checks [...] y Gloria Anthony MD Neurology PGY1 Pager: [phone] Joaquin Hui - 10/2011 7:19 AM PST [...] an. ---- Joaquin Rivera, MS4 Pager # [phone] Chary Moore MD - 03/16/2012 12:56 PM [...] over a 2-year follow-up. Would therefore not henirquez to close her PFO especximena lly considering her current lack of insurance, but agree this is reasonable to consider down the road. Chary Doherty MD Chief Resident, Internal Medicine Pager: [phone] [facility] DEPARTMENT: Hosp- [id number] Place of Service: - Date of Service: 03/16/2012 CSN: [id number] Modifiers: Resident Involved: Yes Suggested CPT: 03200 Subsequent Visit Exp Prob Foc/Mod Complexity 25 min and 50620 Subseque nt Visit Detailed/High complexity 35 min [...] DNR/DNI Gloria Anthony MD Neurology PGY-1 Pager [phone] The patient was seen and discussed with [...] Doherty MD Chief Resident, Internal Medicine Pager: [phone] [facility] DEPARTMENT: Hosp- [id number] Place of Service: - Date of Service: 03/15/2012 CSN: [id number] Modifiers:GC Resident Involved: Yes Suggested CPT: 40911 Subsequent Visit Detailed/High complexity 35 min Dariela [...] plan. Dariela Santoyo MD Internal Medicine PGY-3 [id number] Daryl Singleton MD - 08/2011 7:18 PM PSTHematology Attending Consult Note: I saw and examined Ms. Hartley with the Hematology Fellow, Dr. Anthony Camejo and [facility] [place] the 5A Medicine unit. I participated in the gunter components of today's [facility] pital visit including review of [...] re Daryl Arteaga MD, PhD Hematology Oncology [facility] DEPARTMENT: [id number] [id number] FACULTY [facility] Place of Service: - Inpatient Date of Service: 03/15/2012 Modifiers: GC - Resident Involved Suggested CPT: 43537 - Subsequent, Detailed/High complex 35 min rammer, [...] anticoagulation clinic f/u closely; our clinic at [facility] cannot provide any suppli es -anticoagulation [...] as above. MD Hematology/Oncology Fellow Pager # [phone] signed by Daryl Arteaga MD at 03/15/2012 [...] with any questions. Bigg Robles, R1 Pager: [phone] INTERVAL HISTORY: - NAEO - VSS, AF [...] thrombus - repeat duplexes, given symptoms improving Sandovla Galvez MD, R-4 Addendum: CT w runoff [...] wishes to pro ceed. Mirela Samano M.D. [facility] Vascular Surgery [address] [place] [address], [address] [address] Email: [email or web address] Sandoval Ko MD - 03/15/2012 [...] off to day. Jacoby Tovar MD Surgery [id number] signed by Sandoval Tovar MD at 03/15/2012 [...] monitor Gloria Anthony MD Neurology PGY1 Pager [phone] Daryl Singleton MD - 07/2011 4:57 PM PSTHematology Attending Consult Note: I saw and examined Ms. Hartley with the Hematology Fellow, Dr. Anthony Camejo in the [address] [place] [address] unit. I participated in the gunter components [...] re Daryl Arteaga MD, PhD Hematology Oncology [facility] DEPARTMENT: [id number] [id number] FACULTY [facility] Place of Service: - Inpatient Date of Service: 03/14/2012 Modifiers: GC - Resident Involved Suggested CPT: 62552 - Subsequent, Detailed/High complex 35 min Anthony [...] as above. MD Hematology/Oncology Fellow Pager # [phone] signed by Daryl Arteaga MD at 03/14/2012 [...] really for treatment Recommendations communicated with [employer] human resource intern. We will continue to follow. This plan was discussed and formulated with gastroenterology at [facility], Dr. Casiano. Please call with any questions. Bigg Robles, R1 Pager: [phone] Attending Attestation: I personally interviewed the patient, [...] She may follow-up wit h her local mold stripper or may follow up with me at [facility] if she wishes to consider di fferent evaluation or treatment. Gopal Casiano MD Golf Professionaldoor opener Department of Gastroenterology INTERVAL HISTORY: - NAEO [...] IMAGING Reviewed outside imaging with radiologist at [facility] and CT abd and pelvis shows [...] Becca Moncada MD General Surgery, R2 Pager: [phone] [facility] Staff I saw and evaluated the patient. I agree with the findings and the plan of care as jannie hair in the resident s note. Left foot warm and well perfused. Patient pain-free. Will repe at CTA to see if there has been any thrombus progression. No urgent need for surgery on left leg at this point. Mirela Samano M.D. [facility] Vascular Surgery [address] [place] [address], [address] [address] Email: [email or web address] Irene Aguilera MD - 03/14/2012 [...] at OSH. 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 She also had leukocytosis to 45 with a left shift, anemia, and thrombocytosis (platelets to 759). Her abdominal exam was not acute and she remained hemodynamically stable. Transferre d to [facility] for possible thrombectomy, initiated heparin therapy, [...] were obscured by overlying bowel gas. The frp-az-hgcpye left external iliac arteries appear patent with [...] transient arterial occlusion. Reported CT findings at [facility] are also concerning for diffuse [...] CARLOS A SALCIDO MD R2, General Surgery [facility] 03/13/2012 1:20 PM Current Facility-Administered Medications [...] Becca Moncada MD General Surgery, R2 Pager: [phone] Vascular Staff I saw and evaluated the [...] at a later time. Mirela Samano M.D. [facility] Vascular Surgery [address] [place] [address], [address] [address] Email: [email or web address] Richie Goodman MD - 06/2011 11:15 AM PSTI was present and rounded with the MEDIA THEORIST AND AUTHOR OF today. I interviewed and examined the patient. I reviewed the history, as documented today. I agree with the MEDIA THEORIST AND AUTHOR OF's assessmen t and plan. Pt is stable [...] 75 Morphine IV PRN zofran PRN Labs: [facility] reviewed Significant Results K 3.3 Mg 2.8 [...] visceral and aortic thrombus transfer red from [place] last night with concerns for ischemic bowel. [...] and celiac arteries who was transferred to [facility] for management o f vascular disease and possible bowel ischemia. No evidence of bowel ischemia, bowel thicken ing likely Crohn's flare. 1. Crohn's flare: GI consult. Consider transfer to medicine for crohn's management with [facility] following 2. Multivessel occlusions/thrombii: vascular surgery [...] Her abdominal exam does not reveal peritonitis. [facility] ular surgery recommended a heparin drip given her subtherapeutic INR. Hematology will be con sulted for her leukocytosis and declining platelet count in the setting of heparin therapy. Gastroenterology is making recommendations regarding acute management of her Crohn's disease . She will no longer require ICU care and she will transfer to the general medicine service. Jf Wiseman MD FACS passenger coach driver Division of Trauma, Critical Care, and Acute Care Surgery [phone] documented in this e ncounter Plan of [...] [facility] | [address] | [place] [address] | | | SERVICES, CORE | PARK [...] [facility] | [address] | [place] [address] | | | SERVICES, CORE | PARK [...] | + + + + + | [facility] | [address] | [place] [address] | | | SERVICES, CORE | [address] | | | + + + + + MAGNESIUM, PLASMA (03/31/2012 3:58 AM PST) + +-------+ + + + | Component | Value | Ref Range | Performed | Pathologist | | | | | At | Signature | + +-------+ + + + | MAGNESIUM,P | 1.9 | 1.8 - 2.5 mg/dL | [facility] | | | [facility] | | | [...] | + + + + + | [facility] | [address] [facility] | [place] [address] | | | SERVICES, CORE | BERTRAM [...] [facility] | [address] | [place] [address] | | | SERVICES, CORE | BERTRAM [...] | | + +---------+ + + | [facility] DEPARTMENT OF | | [...] | | + +---------+ + + | [facility] DEPARTMENT OF | | [...] | + + + + + | [facility] | [address] [facility] | [place] [address] | | | SERVICES, CORE | BERTRAM [...] [facility] | [address] | [place] [address] | | | SERVICES, CORE | PARK [...] [facility] | [address] | [place] [address] | | | SERVICES, CORE | PARK [...] [facility] | [address] | [place] [address] | | | SERVICES, CORE | PARK [...] | + + + + + | [facility] | [address] | [place] [address] | | | SERVICES, CORE | BERTRAM [...] | + + + + + | [facility] | [address] [facility] | [place] [address] | | | SERVICES, CORE | BERTRAM [...] [facility] | [address] | [place] [address] | | | SERVICES, CORE | PARK [...] 44.6 (H) | 26.0 - 36.0 | [facility] | | | | | seconds | [...] | + + + + + | [facility] | [address] | [place] [address] | | | SERVICES, JANELL | BERTRAM [...] + | [facility] | [address] | [place] [address] | | | [place] | | | [...] + | [facility] | [address] | [place] [address] | | | [place] | | | | + + + [...] + | [facility] | [address] | [place] [address] | | | [place] | | | [...] [facility] | [address] | [place] [address] | | | SERVICES, CORE | PARK [...] | + + + + + | [facility] | [address] | [place] [address] | | | SERVICES, CORE | PARK [...] [facility] | [address] | [place] [address] | | | SERVICES, CORE | PARK [...] [facility] | [address] | [place] [address] | | | JANELL SHARP | BERTRAM [...] + + + + | [facility] | [address] | [place] [address] | | | PATHOLOGY | [address] [...] [facility] | [address] | [place] [address] | | | SERVICES, CORE | PARK [...] [facility] | [address] | [place] [address] | | | JANELL SHARP | PARK [...] - [facility] | [address] | [place], [place] | | | [facility] [place] | [address] | [address] | | | TESTS | | | [...] | + + + + + | [facility] | [address] | [place] [address] | | | SERVICES, CORE | PARK [...] | + + + + + | [facility] | [address] | [place] [address] | | | SERVICES, CORE | BERTRAM [...] [facility] | [address] | [place] [address] | | | SERVICES, JANELL | BERTRAM [...] - [facility] | [address] | [place], [place] | | | [facility] [place] | [facility] | [address] | | | TESTS | | | [...] [facility] | [address] | [place] [address] | | | SERVICES, CORE | PARK [...] [facility] | [address] | [place] [address] | | | SERVICES, CORE | PARK [...] | + + + + + | [facility] | [address] [facility] | [place] [address] | | | SERVICES, CORE | BERTRAM [...] | + + + + + | [facility] | [address] | [place] [address] | | | SERVICES, JANELL | BERTRAM [...] + + + + | PRODUCT | [id number] | | [facility] | | | UNIT [...] + + + + | BLOOD | 58096 | | [facility] | | | PRODUCT [...] DEPARTMENT OF | [address] | [place] [address] | | | PATHOLOGY | [address] [...] + + + + | PRODUCT | [id number] | | [facility] | | | UNIT [...] + + + + | BLOOD | 09276 | | [facility] | | | PRODUCT [...] | + + + + + | [facility] DEPART[facility] | [address] | [place] [address] | | | PATHOLOGY | [address] [...] (H) | 60 - 99 mg/dL | [facility] - | | | GLUCOSE, | | [...] [facility] | [address] | [place], [place] | | | KAILEY MOORE | [facility] | [address] | | | TESTS | | | [...] | + + + + + | [facility] | [address] | [place] [address] | | | SERVICES, CORE | BERTRAM [...] view image for the detailed interpretation from [employer] results. | CARDIOLOGY | + + + + + + + + | Performing | Address | City/State/Zipcode | Phone Number | | Organization | | | | + + + + + | [facility] | [address] | [place], [place] | | | CARDIOLOGY | [address] | [address] | | + + + + + [...] [facility] | [address] | [place] [address] | | | SERVICES, CORE | PARK [...] + + + + | PRODUCT | [id number] | | [facility] | | | UNIT [...] + + + + | BLOOD | 76014 | | [facility] | | | PRODUCT [...] | + + + + + | [facility] DEPART[facility] | [address] | [place] [address] | | | PATHOLOGY | [address] [...] + + + + | PRODUCT | [id number] | | [facility] | | | UNIT [...] + + + + | BLOOD | 31264 | | [facility] | | | PRODUCT [...] DEPARTMENT OF | [address] | [place], [place] [address] | | | PATHOLOGY | [address] [...] [facility] | [address] | [place] [address] | | | SERVICES, CORE | PARK [...] | + + + + + | [facility] | [address] | [place] [address] | | | SERVICES, CORE | BERTRAM [...] | + + + + + | [facility] | [address] | [place] [address] | | | SERVICES, CORE | BERTRAM [...] [facility] | [address] | [place] [address] | | | SERVICES, CORE | PARK [...] [facility] | [address] | [place] [address] | | | SERVICES, | [address] [...] | + + + + + | [facility] | [address] | [place] [address] | | | SERVICES, | [address] [...] + + + + | PRODUCT | [id number] | | [facility] | | | UNIT [...] + + + + | BLOOD | 72610 | | [facility] | | | PRODUCT [...] | + + + + + | [facility] DEPARTMENT OF | [address] | [place] [address] | | | PATHOLOGY | [address] [...] + + + + | PRODUCT | [id number] | | [facility] | | | UNIT [...] + + + + | BLOOD | 49726 | | [facility] | | | PRODUCT [...] DEPARTMENT OF | [address] | [place] [address] | | | PATHOLOGY | [address] [...] [facility] | [address] | [place] [address] | | | SERVICES, CORE | PARK [...] | + + + + + | [facility] | [address] | [place] [address] | | | SERVICES, CORE | [address] | | | + + + + + MAGNESIUM, PLASMA (03/27/2012 5:27 AM PST) + +---------+ + + + | Component | Value | Ref Range | Performed | Pathologist | | | | | At | Signature | + +---------+ + + + | MAGNESIUM,P | 1.7 (L) | 1.8 - 2.5 mg/dL | [facility] | | | [facility] | | | [...] | + + + + + | [facility] | [address] | [place] [address] | | | SERVICES, CORE | PARK [...] | + + + + + | [facility] | [address] [facility] | [place] [address] | | | SERVICES, CORE | P[address] [...] [facility] | [address] | [place] [address] | | | SERVICES, CORE | PARK [...] [facility] | [address] | [place] [address] | | | SERVICES, CORE | PARK [...] | + + + + + | [facility] | [address] | [place] [address] | | | SERVICES, CORE | PARK [...] LABORATORY | [address] | [place] [address] | | | SERVICES, CORE | PARK [...] | + + + + + | [facility] | [address] | [place] [address] | | | SERVICES, JANELL | BERTRAM [...] [facility] | [address] | [place] [address] | | | SERVICES, CORE | PARK [...] | + + + + + | [facility] | [address] | [place] [address] | | | SERVICES, CORE | [address] | | | + + + + + MAGNESIUM, PLASMA (03/25/2012 3:13 AM PST) + +---------+ + + + | Component | Value | Ref Range | Performed | Pathologist | | | | | At | Signature | + +---------+ + + + | MAGNESIUM,P | 1.7 (L) | 1.8 - 2.5 mg/dL | [facility] | | | LASMA [...] [facility] | [address] | [place] [address] | | | SERVICES, CORE | PARK [...] [facility] | [address] | [place] [address] | | | SERVICES, CORE | PARK [...] [facility] | [address] | [place] [address] | | | SERVICES, CORE | PARK [...] | + + + + + | [facility] | [address] | [place] [address] | | | SERVICES, JANELL | BERTRAM [...] oral, | | | | | | [id number] hrs | | | | | | [...] | | + +---------+ + + | [facility] DEPARTMENT OF | | [...] LABORATORY | [address] | [place] [address] | | | SERVICES, CORE | PARK [...] | + + + + + | [facility] | [address] | [place] [address] | | | SERVICES, CORE | PARK [...] | + + + + + | [facility] | [address] | [place] [address] | | | SERVICES, CORE | BERTRAM [...] | + + + + + | [facility] | [address] | [place] [address] | | | SERVICES, CORE | BERTRAM [...] [facility] | [address] | [place] [address] | | | SERVICES, JANELL | BERTRAM [...] | | | | Final | | [place] | | | | CULTURE RESULT:< 10,000 [...] + | [facility] - | [address] | [place], [place] [address] | | | [facility] | | | | + [...] [facility] | [address] | [place] [address] | | | SERVICES, CORE | PARK [...] [facility] | [address] | [place] [address] | | | SERVICES, CORE | PARK [...] [facility] | [address] | [place] [address] | | | JANELL SHARP | BERTRAM [...] | + + + + + | [facility] | [address] | [place] [address] | | | SERVICES, CORE | BERTRAM [...] + + + | Please click | [facility] DEPT OF | | on view image for the detailed interpretation from [employer] results. | CARDIOLOGY | + + + + + + + + | Performing | Address | City/State/Zipcode | Phone Number | | Organization | | | | + + + + + | [facility] | [address] | [place], [place] | | | CARDIOLOGY | [address] | [address] | | + + + + + [...] | + + + + + | [facility] | [address] | [place] [address] | | | SERVICES, CORE | BERTRAM [...] [facility] | [address] | [place] [address] | | | JANELL SHARP | BERTRAM [...] | + + + + + | [facility] | [address] | [place] [address] | | | JANELL SHARP | BERTRAM [...] | + + + + + | [facility] | [address] | [place] [address] | | | SERVICES, CORE | BERTRAM [...] [facility] | | | | | | [facility],[address] [place] [address] | | | | | | [place] [address] | | | | | | [phone]. | | | | | | keith, [...] [facility] | [address] | [place], [place] | | | [facility] | | [address] | | + + + + + [...] | + + + + + | [facility] | [address] | [place] [address] | | | SERVICES, CORE | BERTRAM [...] | + + + + + | [facility] | [address] [facility] | [place] [address] | | | SERVICES, CORE | [address] | | | + + + + + CULTURE, BLOOD BACTI & YEAST [facility] (03/22/2012 7:08 PM PST) + + [...] | + + + + + | [facility] | [address] | [place] [address] | | | SERVICES, CORE | BERTRAM [...] | | | | | XIN GARZON ([id number]) | | | | | | on 03/22/2012 4:25:06 PM | | | | + + + + + + + + | Specimen | + + | | + + + + + | Narrative | Performed At | + + + | Please click | [facility] DEPT OF | | on view image for the detailed interpretation from [employer] results. | CARDIOLOGY | + + + + + + + + | Performing | Address | City/State/Zipcode | Phone Number | | Organization | | | | + + + + + | [facility] OF | [address] | [place], [place] | | | CARDIOLOGY | [address] | [address] | | + + + + + [...] [facility] | [address] | [place], [place] | | | [facility] CARE | [facility] | [address] | | | TESTS | | | [...] [facility] | [address] | [place], [place] | | | [facility] | [facility] | [address] | | | TESTS | | | [...] | + + + + + | [facility] | [address] | [place] [address] | | | SERVICES, CORE | PARK [...] | + + + + + | [facility] | [address] | [place] [address] | | | SERVICES, JANELL | BERTRAM [...] | + + + + + | [facility] | [address] [facility] | [place] [address] | | | SERVICES, JANELL | BERTRAM [...] [facility] | [address] | [place] [address] | | | SERVICES, CORE | PARK [...] | + + + + + | [facility] | [address] | [place] [address] | | | SERVICES, CORE | BERTRAM [...] [facility] | [address] | [place], [place] | | | [facility] [place] CARE | [address] | [address] | | | TESTS | | | [...] | + + + + + | [facility] | [address] | [place] [address] | | | SERVICES, CORE | PARK [...] [facility] | [address] | [place], [place] | | | [place] [facility] [place] | [address] | [address] | | | TESTS | | | [...] view image for the detailed interpretation from [employer] results. | CARDIOLOGY | + + + + + + + + | Performing | Address | City/State/Zipcode | Phone Number | | Organization | | | | + + + + + | [facility] | [address] | [place], [place] | | | CARDIOLOGY | [address] | [address] | | + + + + + [...] + + + | [facility] | [address] | [place], [place] | | | [facility] [place] [facility] | [address] | [address] | | | TESTS | | | [...] [facility] | [address] | [place] [address] | | | JANELL SHARP | BERTRAM [...] [facility] | [address] | [place] [address] | | | SERVICES, CORE | BERTRAM [...] | + + + + + | [facility] | [address] | [place] [address] | | | ARON, JANELL | BERTRAM [...] | + + + + + | [facility] | [address] | [place] [address] | | | SERVICES, JANELL | BERTRAM [...] | + + + + + | [facility] | [address] | [place] [address] | | | SERVICES, CORE | PARK [...] GARCIA | | | | | | ([phone]) on 03/22/2012 | | | | | | 12:47:28 PM | | | | + + + + + + + + | Specimen | + + | | + + + + + | Narrative | Performed At | + + + | Please click | [facility] DEPT OF | | on view image for the detailed interpretation from [employer] results. | CARDIOLOGY | + + + + + + + + | Performing | Address | City/State/Zipcode | Phone Number | | Organization | | | | + + + + + | [facility] | [address] | [place], [place] | | | CARDIOLOGY | [address] | [address] | | + + + + + [...] | | + +---------+ + + | [facility] DEPARTMENT OF | | [...] [facility] | [address] | [place] [address] | | | SERVICES, CORE | BERTRAM [...] | + + + + + | [facility] | [address] | [place] [address] | | | SERVICES, CORE | BERTRAM [...] [facility] | [address] | [place], [place] | | | KAILEY MOORE | [address] | [address] | | | TESTS | | | [...] view image for the detailed interpretation from [employer] results. | CARDIOLOGY | + + + + + + + + | Performing | Address | City/State/Zipcode | Phone Number | | Organization | | | | + + + + + | [facility] | [address] | [place], [place] | | | CARDIOLOGY | [address] | [address] | | + + + + + [...] [facility] | [address] | [place], [place] | | | [facility] | [address] | [address] | | | TESTS | | | [...] (H) | 60 - 99 mg/dL | [facility] - | | | [...] [facility] | [address] | [place], [place] | | | [facility] | [address] | [address] | | | TESTS | | | [...] | | + +---------+ + + | [facility] DEPARTMENT OF | | [...] [facility] | [address] | [place] [address] | | | ARON, CORE | PARK [...] | + + + + + | [facility] | [address] | [place] [address] | | | SERVICES, CORE | PARK [...] [facility] | [address] [address] | [place] [address] | | | SERVICES, CORE | PARK [...] | + + + + + | [facility] | [address] | [place] [address] | | | SERVICES, CORE | BERTRAM [...] [facility] | [address] | [place], [place] | | | [facility] | [facility] | [address] | | | TESTS | | | [...] - MARILYN | [address] | [place], [place] | | | [facility] OF [facility] | [address] | [address] | | | TESTS | | | [...] | + + + + + | [facility] | [address] | [place] [address] | | | SERVICES, CORE | BERTRAM [...] | + + + + + | [facility] | [address] | [place] [address] | | | SERVICES, CORE | BERTRAM [...] MARQUAM | [address] | [place], [place] | | | [facility] | [address] | [address] | | | TESTS | | | [...] view image for the detailed interpretation from [employer] results. | CARDIOLOGY | + + + + + + + + | Performing | Address | City/State/Zipcode | Phone Number | | Organization | | | | + + + + + | [facility] | [address] | [place], [place] | | | CARDIOLOGY | [address] | [address] | | + + + + + [...] SANDERS | [address] | [place], [place] | | | [facility] | [address] | [address] | | | TESTS | | | [...] SANDERS | [address] | [place], [place] | | | [facility] | [address] | [address] | | | TESTS | | | [...] | + + + + + | [facility] | [address] | [place] [address] | | | JANELL SHARP | BERTRAM [...] | + + + + + | [facility] | [address] | [place] [address] | | | JANELL SHARP | BERTRAM [...] | + + + + + | [facility] | [address] | [place] [address] | | | SERVICES, CORE | PARK [...] | + + + + + | [facility] | [address] | [place] [address] | | | SERVICES, JANELL | BERTRAM [...] | | | | Final | | [place] | | | | CULTURE RESULT:No growth [...] + | [facility] - | [address] | [place] [address] | | | [place] | | | [...] [facility] | [address] | [place] [address] | | | SERVICES, CORE | PARK [...] | + + + + + | [facility] | [address] | [place] [address] | | | SERVICES, CORE | BERTRAM [...] | + + + + + | [facility] | [address] | [place] [address] | | | SERVICES, CORE | PARK [...] | + + + + + | [facility] | [address] [facility] | [place] [address] | | | SERVICES, CORE | [address] | | | + + + + + CULTURE, BLOOD BACTI & YEAST [facility] (03/19/2012 1:10 AM PST) + + + + + + | Component | Value | Ref Range | Performed | Pathologist | | | | | At | Signature | + + + + + + | BLOOD | Final Report:No Bacteria | Final Report:No | [facility] | | | CULTURE | or Yeast [...] | + + + + + | [facility] | [address] | [place] [address] | | | SERVICES, CORE | BERTRAM [...] MAR[facility] | [address] | [place], [place] | | | [facility]ARE | [address] | [address] | | | TESTS | | | [...] | + + + + + | [facility] | [address] | [place] [address] | | | JANELL SHARP | BERTRAM [...] (H) | 60 - 99 mg/dL | [facility] - | | | [...] SANDERS | [address] | [place], [place] | | | [facility] | [address] | [address] | | | TESTS | | | [...] | + + + + + | [facility] | [address] | [place] [address] | | | SERVICES, CORE | PARK [...] [facility] | [address] | [place] [address] | | | SERVICES, CORE | PARK [...] + | [facility] | [address] [facility] [address] | [place], [place] | | | [facility] | [facility] | [address] | | | TESTS | | | | + + + + + OPERATION RECORD (03/18/2012 11:22 AM PST) + + | Transcriptions | + + | Mirela Salgado MD - 03/18/2012 8:38 AM PST Date: 03/17/2012ttending | | Surgeon: Mirela Salgado M.D.Spool Winder(s): Sandoval | | Bennett Galvez M.D.Preoperative Diagnosis(es):Embolus, [...] | | tolerated the procedure well.MIRELA SALGADO, [facility] / [id number] / | | [id number] / [id number] / T: 03/17/2012 | |was no pulse. [...] | |was not reversed. A number 7 Romeo-Balckwood drain was placed in the wound | [...] | | | |MIRELA SALGADO MD | |slot router | | | |GLM / HS | |[id number] / [id number] / [id number] / | | | | | + [...] | + + + + + | [facility] | [address] | [place] [address] | | | SERVICES, CORE | BERTRAM [...] [facility] | [address] | [place] [address] | | | SERVICES, CORE | PARK [...] [facility] | [address] | [place] [address] | | | SERVICES, CORE | PARK [...] [facility] | [address] | [place] [address] | | | SERVICES, CORE | PARK [...] | + + + + + | [facility] | [address] | [place] [address] | | | SERVICES, CORE | PARK [...] | + + + + + | [facility] | [address] | [place] [address] | | | JANELL SHARP | PARK [...] | + + + + + | [facility] | [address] | [place] [address] | | | JANELL SHARP | BERTRAM [...] (H) | 60 - 99 mg/dL | [facility] - | | | [...] MARILYN | [address] | [place], [place] | | | [facility] | [address] | [address] | | | TESTS | | | [...] + + | Performing | Address | City/State/[facility] | Phone Number | | Organization | | | | + + + + + | [facility] | [address] | [place], [place] | | | [facility] OF [place] | [facility] | [address] | | | TESTS | | | [...] [facility] | [address] | [place], [place] | | | [facility] | [facility] | [address] | | | TESTS | | | [...] [facility] | [address] | [place] [address] | | | SERVICES, CORE | PARK [...] | + + + + + | [facility] | [address] | [place] [address] | | | SERVICES, CORE | PARK [...] [facility] | [address] | [place] [address] | | | SERVICES, CORE | PARK [...] | + + + + + | [facility] | [address] | [place] [address] | | | SERVICES, CORE | BERTRAM [...] [facility] | [address] | [place], [place] | | | [facility] | [address] | [address] | | | TESTS | | | [...] [facility] | [address] | [place] [address] | | | SERVICES, | [address] [...] | + + + + + | [facility] | [address] | [place] [address] | | | SERVICES, | [address] [...] | + + + + + | [facility] | [address] | [place] [address] | | | [facility] | [address] | | | + [...] SANDERS | [address] | [place], [place] | | | [facility] | [address] | [address] | | | TESTS | | | [...] [facility] | [address] | [place], [place] | | | [facility]ARE | [address] | [address] | | | TESTS | | | [...] - MARILYN | [address] | [place], [place] | | | [facility] | [address] | [address] | | | TESTS | | | [...] | + + + + + | [facility] | [address] | [place] [address] | | | SERVICES, CORE | BERTRAM [...] (H) | 60 - 99 mg/dL | [facility] - | | | [...] MARILYN | [address] | [place], [place] | | | [facility] [place] | [facility] | [address] | | | TESTS | | | [...] + + | Performing | Address | City/State/[facility]code | Phone Number | | Organization | | | | + + + + + | [facility] | [address] | [place] [address] | | | [facility] | [address] | | | + [...] [facility] | [address] | [place] [address] | | | SERVICES, CORE | PARK [...] | + + + + + | [facility] | [address] | [place] [address] | | | JANELL SHARP | BERTRAM [...] | + + + + + | [facility] | [address] | [place] [address] | | | SERVICES, CORE | BERTRAM [...] (H) | 60 - 99 mg/dL | [facility] - | | | [...] SANDERS | [address] | [place], [place] | | | [facility] [place] | [address] | [address] | | | TESTS | | | [...] [facility] | [address] | [place], [place] | | | [facility] | [address] | [address] | | | TESTS | | | [...] | | + +---------+ + + | [facility] DEPARTMENT OF | | [...] Kirstie | | | | | | Alabaster | | | | + + + [...] [facility] | [address] | [place], [place] | | | [facility] CARE | [address] | [address] | | | TESTS | | | [...] MARILYN | [address] | [place], [place] | | | [facility] | [address] | [address] | | | TESTS | | | [...] [facility] | [address] | [place] [address] | | | SERVICES, SPECIAL | PARK [...] [facility] | [address] [facility] | [place] [address] | | | SERVICES, SPECIAL | BERTRAM [...] [facility] | [address] | [place] [address] | | | SERVICES, SPECIAL | PARK [...] [facility] | [address] | [place] [address] | | | SERVICES, SPECIAL | PARK [...] [facility] | [address] | [place] [address] | | | SERVICES, CORE | PARK [...] | + + + + + | [facility] | [address] [facility] | [place] [address] | | | SERVICES, CORE | PARK [...] [facility] | [address] | [place] [address] | | | SERVICES, CORE | PARK [...] | + + + + + | [facility] | [address] | [place] [address] | | | SERVICES, JANELL | BERTRAM [...] MARILYN | [address] | [place], [place] | | | [facility] | [address] | [address] | | | TESTS | | | [...] | + + + + + | [facility] | [address] | [place] [address] | | | SERVICES, CORE | BERTRAM [...] (H) | 60 - 99 mg/dL | [facility] - | | | [...] SANDERS | [address] | [place], [place] | | | [facility] [place] | [facility] | [address] | | | TESTS | | | [...] [facility] | [address] | [place], [place] | | | [facility] CARE | [address] | [address] | | | TESTS | | | [...] Davina | | | | | | Ogle | | | | + + + [...] [facility] | [address] | [place], [place] | | | [facility]ARE | [address] | [address] | | | TESTS | | | [...] + + + + | PRODUCT | [id number] | | [facility] | | | UNIT [...] + + + + | BLOOD | 33662 | | [facility] | | | PRODUCT [...] + + + + | [facility] | [address] | [place] [address] | | | PATHOLOGY | [address] [...] + + + + | PRODUCT | [id number] | | [facility] | | | UNIT [...] + + + + | BLOOD | 42684 | | [facility] | | | PRODUCT [...] DEPARTMENT OF | [address] | [place] [address] | | | PATHOLOGY | [address] [...] [facility] | [address] | [place] [address] | | | SERVICES, CORE | PARK [...] [facility] | [address] | [place], [place] | | | [facility] CARE | [address] | [address] | | | TESTS | | | [...] SANDERS | [address] | [place], [place] | | | [facility] [place] | [address] | [address] | | | TESTS | | | [...] [facility] | [address] | [place] [address] | | | SERVICES, CORE | [address] [...] [facility] | [address] | [place] [address] | | | SERVICES, CORE | PARK [...] | + + + + + | [facility] | [address] | [place] [address] | | | SERVICES, CORE | BERTRAM [...] if | | | | | | [id number] >400: | | | | | | [...] + + | Performing | Address | City/State/[facility] | Phone Number | | Organization | | | | + + + + + | [facility] | [address] | [place] [address] | | | [place] | | | [...] [facility] | [address] | [place] [address] | | | SERVICES, CORE | PARK [...] [facility] | [address] | [place] [address] | | | SERVICES, CORE | PARK [...] | + + + + + | [facility] | [address] [facility] | [place] [address] | | | SERVICES, CORE | PARK [...] + | [facility] - | [address] | [place] [address] | | | [place] | | | | + + + [...] - [facility] | [address] | [place], [place] | | | [facility]SCAR POINT OF CARE | [facility] | [address] | | | TESTS | | | [...] [facility] | [address] | [place] [address] | | | SERVICES, CORE | PARK [...] [facility] | [address] | [place] [address] | | | ARON, JANELL | BERTRAM [...] 98 | 60 - 99 mg/dL | [facility] - | | | [...] DAVID[facility] | [address] | [place], [place] | | | [facility] | [address] | [address] | | | TESTS | | | [...] | + + + + + | [facility] | [address] | [place] [address] | | | SERVICES, CORE | PARK [...] gas. | | | | | | Aynbii-ih-vycjas left | | | | | | [...] | | | | | Preliminary / Davian | | | | | | Aguilar | | | | + + + + + + + + | Specimen | + + | | + + + +---------+ + + | Performing | Address | City/State/Zipcode | Phone Number | | Organization | | | | + +---------+ + + | [facility] DEPARTMENT OF | | [...] [facility] | [address] | [place], [place] | | | [facility] CARE | [address] | [address] | | | TESTS | | | [...] % | [facility] | | | | [facility],[address] | | REG UNIV | | | | Jarett Card, [facility] | | PTH - INT[facility] | | | | [address] | | | | | | [phone].Noveporteruplab. | | | | | | Kaitlin [...] [facility] | [address] | [place], [place] | | | UNIV PTH - INT[facility] | | [address] | | + + + + + [...] | + + + + + | [facility] | [address] | [place] [address] | | | SERVICES, JANELL | BERTRAM [...] [facility] | [address] | [place] [address] | | | JANELL SHARP | BERTRAM [...] [facility] | [address] | [place] | | | [facility] | [address] | [address] | | | TESTS | | | [...] [facility] | [address] | [place] [address] | | | SERVICES, CORE | PARK [...] | + + + + + | [facility] | [address] | [place] [address] | | | SERVICES, CORE | BERTRAM [...] + + | Performing | Address | City/State/[facility] | Phone Number | | Organization | | | | + + + + + | [facility] | [address] | [place], [place] | | | KAILEY MOORE | [facility] | [address] | | | TESTS | | | [...] | + + + + + | [facility] | [address] | [place] [address] | | | JANELL SHARP | BERTRAM [...] [facility] | [address] | [place] [address] | | | SERVICES, JANELL | PARK [...] | + + + + + | [facility] | [address] [facility] | [place] [address] | | | JANELL SHARP | BERTRAM [...] [facility] | [address] | [place] [address] | | | SERVICES, JANELL | BERTRAM [...] [facility] | [address] | [place] [address] | | | SERVICES, CORE | PARK [...] [facility] | [address] | [place] [address] | | | SERVICES, CORE | PARK [...] | | | | Final | | [place] | | | | CULTURE RESULT:No growth [...] | + + + + + | [facility] | [address] | [place] [address] | | | [place] | | | | + + + [...] | | | Final CULTURE | | [place] | | | | RESULT:Salmonella, | | [...] days. | AIRPORT - | | | [place] | + + + + + + + + | Performing | Address | City/State/Zipcode | Phone Number | | Organization | | | | + + + + + | [facility] - | [address] | [place] [address] | | | [place] | | | [...] | + + + + + | [facility] | [address] | [place] [address] | | | SERVICES, CORE | BERTRAM [...] [facility] | [address] | [place], [place] | | | [facility] CARE | [address] | [address] | | | TESTS | | | [...] view image for the detailed interpretation from [employer] results. | CARDIOLOGY | + + + + + + + + | Performing | Address | City/State/Zipcode | Phone Number | | Organization | | | | + + + + + | [facility] | [address] | [place], [place] | | | CARDIOLOGY | [address] | [address] | | + + + + + [...] | | + +---------+ + + | [facility] DEPARTMENT OF | | [...] | + + + + + | [facility] | [address] | [place] [address] | | | SERVICES, CORE | PARK [...] [facility] | [address] [facility] | [place] [address] | | | SERVICES, CORE | BERTRAM [...] | + + + + + | [facility] | [address] [facility] | [place] [address] | | | SERVICES, CORE | BERTRAM [...] | + + + + + | [facility] | [address] | [place] [address] | | | SERVICES, CORE | BERTRAM [...] (H) | 60 - 99 mg/dL | [facility] - | | | [...] SANDERS | [address] | [place], [place] | | | [facility] | [address] | [address] | | | TESTS | | | [...] [facility] | [address] | [place] [address] | | | SERVICES, CORE | PARK [...] + | [facility] | [address] | [place] [address] | | | SERVICES, CORE | PARK [...] | + + + + + | [facility] | [address] | [place] [address] | | | SERVICES, | [address] [...] [facility] | [address] | [place] [address] | | | SERVICES, | [address] [...] | 30.3 | 26.0 - 36.0 | [facility] | | | | | sec. [...] [facility] | [address] | [place] [address] | | | JANELL SHARP | BERTRAM [...] [facility] | [address] | [place] [address] | | | SERVICES, CORE | PARK [...] | + + + + + | [facility] | [address] | [place] [address] | | | SERVICES, CORE | BERTRAM [...] | | | | First dose on [facility] 03/23/12 at | | | | [...] | | | dose, First dose on [facility] 03/30/12 | | | | | [...] | | | Hours, ONCE, 1 dose, [facility] 03/15/12 | | | | | [...] | | | Hours, ONCE, 1 dose, [facility] 03/16/12 | | | | | [...] | | | | | 1115, Until [facility] 03/30/12 at 1055, | | | [...] | | oral, ONCE, 1 dose, [facility] 03/30/12 | | PM PST | [...] | | | oral, ONCE, 1 dose, [facility] 03/17/12 | | PM PST | | | | | at 1600 | | | | | | + +-------+ +--------+---+---+ +---+---+ | | | +---+---+ + +-------+ +--------+---+---+ | potassium chloride (aka | Given | 03/19/20 | 40 mEq | | | | KLOR-CON) packet 40 mEq 40 mEq, | | 12 3:14 | | | | | oral, ONCE, 1 dose, [facility] 03/19/12 | | PM PST | | | | | at 1430 | | | | | | + +-------+ +--------+---+---+ +---+---+ | | | +---+---+ + +-------+ +--------+---+---+ | potassium chloride (aka | Given | 03/26/20 | 40 mEq | | | | CAROL-KENISHA) packet 40 mEq 40 mEq, | | 12 12:06 | | | | | oral, ONCE, 1 dose, [facility] 03/26/12 | | PM PST | | | | | at 1000 | | | | | | + +-------+ +--------+---+---+ +---+---+ | | | +---+---+ + +---------+ +--------+--------+---+ | potassium chloride IV 40 mEq | New Bag | 03/12/20 | 40 mEq | mL/hr | | | 40 mEq, intravenous, ONCE, 1 | | 12 8:32 | | | | | dose, [facility] 03/12/12 at 2100 | | PM PST | | | | + +---------+ +--------+--------+---+ +---+---+ | | | +---+---+ + +---------+ +--------+--------+---+ | potassium chloride IV 40 mEq | New Bag | 03/17/20 | 40 mEq | mL/hr | | | 40 mEq, intravenous, ONCE, 1 | | 12 7:07 | | | | | dose, [facility] 03/17/12 at 1630 | | PM PST [...] | | | | | NEEDED, Starting [facility] 03/16/12 at | | | | | | | 0815, Until [facility] 03/19/12 at 0713, | | | | [...] 12 10:58 | | | | | [facility] 03/30/12 at 2300 | | PM [...] | | | | | modification) on [facility] 03/23/12 at | | | | [...]
--- OUTSIDE RECORDS SUMMARY | ~2019-11-05 | XMS | Encounter Summary ---
Demographics + + + | Address | [address] | | | [place] [address] | + + + | Home Phone [...] [place], [place] | | | | | [address] | | + + + + + | Cami Sawyer | ECON | Unknown | | + + + + + Care Team Providers + +------+ + | Care Coater Name | Role | Phone | + [...] [address] | | | | | [place], [place] | [address] | | | 05/13/ | | | [place], [place] | | | 2014 | | [phone] | [address] | | | | | | [phone] | | | | | | | | | | | | Jf Wiseman MD | | | | | | [address] | | | | | | [address] | | | | | | [place], [place] | | | | | | [address] | | | | | | [phone] | | | | | | | [...] f rom the original. [facility] DEPARTMENT OF SURGERY EMERGENCY GENERAL SURGERY Division [...] continued to progress and [facility]. Mackenzie Hartley is discharged in stable [...] f rom the original. 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 while anticoagulated with warfarin transferred to [facility] from [facility] for hanh gement of retroperitoneal [...] diet Discharge [place]: [place] [id number] pager number [facility] [address] [facility] [place] [address] ean-Claude Albrecht DM D, MD - 05/12/2014 7:56 AM PST [facility] Department of Surgery Progress Note Author: Jean-Claude Albrecht MD General Surgery Resident Attending Physician: Jf Wiseman MD GENERAL SURGERY Progress Note: Hospital Day #: 19 ATTENDING: Jf Wiseman MD Identification: Mackenzie Hartley is a 58 year old female with COPD, Crohn's disease, chronic pa in, and 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 [...] know if she wants to see the [facility] GI team - Stage [...] recommending [facility] since would be close to [facility] and she would benefit [...] with complication 03/12/2012 Jean-Claude Albrecht D.M.D., M.D. [facility] [address] [place] [address] This assessment and plan was formulated both [...] MD - 05/11/2014 8:51 AM PST . 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 [...] know if she wants to see the [facility] GI team - Stage [...] recommending [facility] since would be close to [facility] and she would benefit [...] with complication 03/12/2012 Jean-Claude Albrecht D.M.D., M.D. [facility] [address] [place] [address] This assessment and plan was formulated both [...] being active. Pt's has been at the [facility] supporting her. Pt is not christian but appreciates support. Intervention: Provided a listening presence and explored pt's anxieties, worries and hopes. Plan: Spiritual care remains available. 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 [...] know if she wants to see the [facility] GI team - Stage [...] recommending [facility] since would be close to [facility] and she would benefit [...] intestine with complication 03/12/2012 ANDREW VINCENT MD [facility] [address] [place] [address] This assessment and plan was [...] might be different from the orig formerly [facility]. 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 [...] know if she wants to see the [facility] GI team - Stage [...] recommending [facility] since would be close to [facility] and she would benefit [...] intestine with complication 03/12/2012 ANDREW VINCENT MD [facility] [address] [place] [address] This assessment and plan was [...] might be different from the orig inal. 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 [...] TROPONIN Imaging No new Cultures BLOOD CULTURE [facility] (no units) Date Value [...] thrombosis while anticoagulated with warfarin transferred to [facility] from [facility] for management of retroperitoneal bleed. [...] know if she wants to see the [facility] GI team - Stage [...] recommending SONIAA since would be close to [facility] and she would benefit [...] intestine with complication 03/12/2012 ANDREW VINCENT MD [facility] [address] [place] [address] This assessment and plan was formulated [...] note might be different from the [facility] Department of Surgery Progress Note Author: Andrew Vincent MD General Surgery Resident Attending Physician: Jf Wiseman MD GENERAL SURGERY Progress Note: Hospital Day #: 14 ATTENDING: Jf Wiseman MD Identification: Mackenzie Hartley is a 58 year old female with COPD, Crohn's disease, chronic pa in, and 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 [...] TROPONIN Imaging No new Cultures BLOOD CULTURE [facility] (no units) Date Value [...] thrombosis while anticoagulated with warfarin transferred to [facility] from [facility] for management of retroperitoneal bleed. [...] intestine with complication 03/12/2012 ANDREW VINCENT MD [facility] [address] [place] [address] This assessment and plan was formulated both [...] might be different from the orig formerly [facility]. 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 [...] TROPONIN Imaging No new Cultures BLOOD CULTURE [facility] (no units) Date Value [...] thrombosis while anticoagulated with warfarin transferred to [facility] from [facility] for management of retroperitoneal bleed. [...] continued DHT,TF - Diet: NPO - per [employer], high risk of aspiration - continue ice [...] intestine with complication 03/12/2012 ANDREW VINCENT MD [facility] [address] [place] [address] This assessment and plan was formulated both [...] might be different from the orig inal. 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 [...] TROPONIN Imaging No new Cultures BLOOD CULTURE [facility] (no units) Date Value [...] thrombosis while anticoagulated with warfarin transferred to [facility] from [facility] for management of retroperitoneal bleed. [...] intestine with complication 03/12/2012 ANDREW VINCENT MD [facility] [address] [place] [address] This assessment and plan was [...] the resident s note. PHIL VARMA MD [facility] [address] [place] [address] Rosa Sauer MD - 05/04/2014 8:26 AM [...] at referring hospital. She was transferred to [facility] f or active hemorrhage and underwent [...] CV: RRR Abdomen: soft, midline incision with diaan in place : wolf in place Extremities: [...] rounds. Rosa Reynoso, R2 SICU/Trauma Personal pager: [phone] Team pager: [phone] Angeles Acevedo MD - 05/04/2014 7:08 AM PST [facility] DEPARTMENT OF SURGERY EGS ICU Progress Note Division of Trauma and Critical Care ID: Mackenzie Hartley is a 58 year old female with COPD, Crohn's disease, chronic pain, and 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 while anticoagulated with warfarin transferre d to [facility] from [facility] for management of retroperitoneal bleed. 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 She has required repeated transfers to ICU for respiratory status. She has been diuresed ap propriately while in the ICU and O2 needs have decreased significantly. Will transfer to [facility] or, but need to keep a close [...] Hannah MD General Surgery Resident, R3 Pager [phone] [facility] [place] [address] [address] [facility] [address] Jf Jones MD - 05/03/2014 9:38 AM [...] - TF at goal, + BM Dysphagia: [employer] following- remains NPO Anasarca: compression socks,. Goal [...] Call team 01/11 for questions: Team Pager [phone] ATTENDING ADDENDUM: I saw and examined Mackenzie [...] Erin Christensen PA-C. Jf Wiseman MD FACS family and consumer sciences professor Division of Trauma, Critical Care, and Acute Care Surgery [id number] Elda Emmanuel MD - 05/03/2014 3:49 AM PST EMERGENCY GENERAL SURGERY ICU PROGRESS NOTE: Attending Physician: Jf Wiseman MD 05/03/2014 ID: Mackenzie Hartley is a 58 year old female with COPD, Crohn's disease, chronic pain, and coagulopa thy resulting in splenic artery thrombosis while anticoagulated with warfarin transferred to [facility] from [facility] for management of retroperitoneal bleed. 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 [...] this patient encounter. Elda Glez MD Pager [phone] Plastic Surgery R2 [facility] [...] Q6W Remicade- will consult hematology in [facility] yaritza week regarding of timing of resuming remicade Severe malnutrition: - TF at goal, + BM, Dysphagia: [employer] following- remains NPO Anasarca: compression socks,. Goal [...] Call team 01/11 for questions: Team Pager [phone] ATTENDING ADDENDUM: I saw and examined Mackenzie [...] Marge Harris PA-C. Jf Wiseman MD FACS family and consumer sciences professor Division of Trauma, Critical Care, and Acute Care Surgery [phone] GIAHarAngeles oglesby MD - 05/02/2014 6:55 AM PST [facility] DEPARTMENT OF SURGERY EGS ICU Progress Note Division of Trauma and Critical Care ID: Mackenzie Hartley is a 58 year old female with COPD, Crohn's disease, chronic pain, and 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 while anticoagulated with warfarin transferre d to [facility] from [facility] for management of retroperitoneal bleed. 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 [...] Hannah MD General Surgery Resident, R3 Pager [phone] [place] [address] arris, Angeles Hanna MD - 05/02/2014 2:14 [...] Hannah MD General Surgery Resident, R3 Pager [phone] ean-Claude Albrecht DMD, MD - 05/01/2014 10:36 AM PST [facility] DEPARTMENT OF SURGERY EGS Progress Note ID: Mackenzie Hartley is a 58 year old female with COPD, Crohn's disease, chronic pain, and 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 while anticoagulated with warfarin transferre d to [facility] from [facility] for management of retroperitoneal bleed. [...] PA-C nystatin (MYCOSTATIN) powder, , topical, BID, nAdrew Vincent MD oxyCODONE (immediate release) (ROXICODONE) tablet [...] thrombosis while anticoagulated with warfarin transferred to [facility] from [facility] for management of retroperitoneal bleed. Overall, she is improving. However, remains tachycardic with leukocytosis - WBC [address] 05/01 showed - moderate ascites and pleural effusions and hematoma. Neuro: dilaudid IV PRN Speech: following continue daily to eval swallow CV: HD stable L COURT MAGISTRATE PSA resolved Continue IV lasix today 20 [...] M.D. [facility] [address] [facility] [place] [address] Jf Jones MD - 04/30/2014 11:08 AM [...] at referring hospital. She was transferred to [facility] fo r active hemorrhage and underwent [...] malnutrition: - pulled DHT- refusing replacement. Await [employer] eval if passes swallow will give chance to prove adequate po intake. Expect will require TFs again Dysphagia: await [employer] eval today. Cont meds and feed via [...] Call team 01/11 for questions: Team Pager [phone] ATTENDING ADDENDUM: I saw and examined Mackenzie [...] Marge Harris PA-C. Jf Wiseman MD FACS family and consumer sciences professor Division of Trauma, Critical Care, and Acute Care Surgery [phone] Angeles Acevedo MD - 04/30/2014 1:18 AM PST [facility] DEPARTMENT OF SURGERY EGS ICU Progress Note Division of Trauma and Critical Care ID: Mackenzie Hartley is a 58 year old female with COPD, Crohn's disease, chronic pain, and 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 while anticoagulated with warfarin transferre d to [facility] from [facility] for management of retroperitoneal bleed. 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 Overall, she is improving. However, remains tachycardic with leukocytosis -- difficult to t ease out if this is secondary to asplenia. Will obtain CT abd pelvis today to clarify. Neuro: dilaudid IV PRN and intermittent versed for sedation CV: HD stable L COURT MAGISTRATE PSA resolved Pulm: titrate to O2 >92% [...] Hannah MD General Surgery Resident, R3 Pager [phone] [facility] [place] [address] [address] [facility] [address] Aravind Morales MD - 04/29/2014 11:43 AM PSTICU Attending: I saw and examined Mackenzie Hartley ([id number]) with Erin Christensen PA-C on 04/29/14 and [...] of time documented by Kaci Massey MD Batcher Operator Trauma, Critical Care & Acute Care Surgery Gayatir Owusu P A-C - 04/29/2014 11:43 AM [...] at referring hospital. She was transferred to [facility] fo r active hemorrhage. Hospital Day [...] resolving cont current H2O via DHT Dysphagia: [employer] consulted, ice chips only. Cont meds and [...] Call team 01/11 for questions: Team Pager [phone] Chelly Blum MD,M PH - 04/28/2014 3:03 [...] note might be different from the jonathon viy Trauma / Surgical Critical Care Service - Progress Note Name: MACKENZIE HARTLEY Date: 04/28/2014 Time: 3:03 PM Author: GAYATRI CHRISTENSEN PA-C HPI: 58 y.o. female admitted on 04/23/2014 10:39 AM with Crohn's, COPD, chronic pain, recurr ent UTIs, and known splenic artery thrombosis s/p retroperitoneal hemorrhage on therapeutic heparin infusion. Surgical exploration at referring hospital. She was transferred to [facility] fo r active hemorrhage. Hospital Day [...] Hyernatremia: resolving, reduce H2O to 30ml/hr Dysphagia: [employer] consulted, ice chips only. Cont meds and [...] Call team 01/11 for questions: Team Pager [phone] Angeles Acevedo MD - 04/28/2014 5:18 AM PST [facility] DEPARTMENT OF SURGERY EGS ICU Progress Note Division of Trauma and Critical Care ID: Mackenzie Hartley is a 58 year old female with COPD, Crohn's disease, chronic pain, and 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 while anticoagulated with warfarin transferre d to [facility] from [facility] for management of retroperitoneal bleed. She is s/p ex lap, splenectomy, and packing with lap pads at OSH and from reopening of laparotomy, evacua tion of 2-3 L of intraabdominal hematoma, closure of open abdomen SUBJECTIVE: Extubated, neurologically doing much better. 3 L NC Underwent successful thrombin injection of L COURT MAGISTRATE pseudoaneurysm by IR 04/26 MEDICATIONS: Current facility-administered [...] tablet 15 mg, 15 mg, oral, DAILY, Barotlo Thacker MD, 15 mg at 04/27/14 1151 [...] thrombosis while anticoagulated with warfarin transferred to [facility] from [facility] for management of retroperitoneal bleed. Neuro: dilaudid IV PRN and intermittent versed for sedation CV: HD stable Per vascular: arterial duplex of L COURT MAGISTRATE to assess for stability of PSA shows [...] Hannah MD General Surgery Resident, R3 Pager [phone] [facility] [place] [address] [place] [address] [facility] [place] [address] Xin Irizarry M D - 04/27/2014 11:55 [...] diagnosti c imaging and laboratory study results [facility] DEPARTMENT: [id number] - [facility]EM [facility] Place of Service: - Inpatient Date of Service: 04-27-2014 Modifiers: GC - Resident Involved Suggested CPT: 58131 - Initial, Comp; Mod complex 50 min XIN AGEE MD [facility] [address] [place] [address] wpriya Rudy Markham Adriel - 04/27/2014 11:55 AM PST Hematology Consult Progress Note Primary Service: EGS Primary Attending: Jf Wiseman MD Hospital Length of Stay: 4 Interval Events: - extubated - thrombin injection to COURT MAGISTRATE pseudoaneurysm - heparin gtt started last night Subjective: Patient is unable to provide history as she remains encephalopathic. Did speak with her , who confirmed history obtained in initial heme consult note. States she givens s been on warfarin since her 2011 [facility] admission with no known [...] assessme nt and plan. Rudy Sarmiento, DO [facility] Internal Medicine PGY3 Pager [phone] Mirela Josue MD - 04/27/2014 10:49 AM PST [facility] Department of Surgery Progress [...] underwent successful thrombin injection of the left COURT MAGISTRATE pseudoaneurysm by IR last night. Heparin restarted [...] ultraso und guided thrombin injection of left COURT MAGISTRATE pseudoanuerysm. Will order arterial duplex of left COURT MAGISTRATE to assess for stability of pseudoaneurysm Monitor [...] - hemorrhage vs HCAP LUCY MARKS MD [address] [place] [address] This assessment and plan was formulated both independently and in conjunction with the [facility] ular Surgery Team as well as the attending provider of record above regarding management of this patient and their medical issues. It is accurate to the best of my knowledge, and is s ubject to modification based on clinical developments, new data, or final imaging results. [facility] staff I saw and evaluated the patient. I agree with the findings and the plan of care as petern laxmi in the resident s note. Left femoral pseudoaneurysm appears resolved. Stable from [facility] standpoint. No further imaging required unless clinical status changes. Mirela Thompson M.D. [facility] Vascular Surgery [address] [place] [address] Email: [email or web address] Jf Jones MD - [...] at referring hospital. She was transferred to [facility] fo r active hemorrhage. Hospital Day [...] H2O Hyernatremia: water 100ml/hr via DHT Dysphagia: [employer] consulted, ice chips only JULIANE: ATN from [...] Call team 01/11 for questions: Team Pager [phone] ATTENDING ADDENDUM: I saw and examined Mackenzie [...] Erin Christensen PA-C. Jf Wiseman MD FACS family and consumer sciences professor Division of Trauma, Critical Care, and Acute Care Surgery [id number] aElda tejada MD - 04/27/2014 4:52 AM PST EMERGENCY GENERAL SURGERY ICU PROGRESS NOTE: Attending Physician: Jf Wiseman MD 04/27/2014 ID: Mackenzie Hartley is a 58 year old female with COPD, Crohn's disease, chronic pain, and coagulopa thy resulting in splenic artery thrombosis while anticoagulated with warfarin transferred to [facility] from [facility] for management of retroperitoneal bleed. [...] HR EVENTS: - Incidentally found to have COURT MAGISTRATE pseudoaneurysm, injected with thrombin by IR - [...] thrombosis while anticoagulated with warfarin transferred to [facility] from [facility] for management of retroperitoneal bleed. [...] this patient encounter. Elda Glez MD Pager [phone] Plastic Surgery R2 [facility] [...] Attending:Dr. Lenny Calhoun MD (Fellow)/pager: Dr. Vang [phone] Medications Procedure Meds: Dilaudid IV 0.5mg Midazolam [...] at referring hospital. She was transferred to [facility] fo r active hemorrhage. Hospital Day [...] Call team 01/11 for questions: Team Pager [phone] Angeles Acevedo MD - 04/26/2014 5:24 AM PST [facility] DEPARTMENT OF SURGERY EGS ICU Progress Note Division of Trauma and Critical Care ID: Mackenzie Hartley is a 58 year old female with COPD, Crohn's disease, chronic pain, and 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 while anticoagulated with warfarin transferre d to [facility] from [facility] for management of retroperitoneal bleed. 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 [...] Hannah MD General Surgery Resident, R3 Pager [phone] [facility] [place] [address] [address] [facility] [address] ithya Bailey MD - 04/25/2014 6:40 AM PSTTSICU Attending 04/25/14 58 yo woman critically ill with complex surgical and medical history, transferred to [facility] intraabdominal and retroperitoneal hemorrhage 2 days [...] Call team 01/11 for questions: Team Pager [phone] Angeles Acevedo MD - 04/25/2014 4:39 AM PST [facility] DEPARTMENT OF SURGERY EGS ICU Progress Note Division of Trauma and Critical Care ID: Mackenzie Hartley is a 58 year old female with COPD, Crohn's disease, chronic pain, and 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 while anticoagulated with warfarin transferre d to [facility] from [facility] for management of retroperitoneal bleed. 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 [...] Hannah MD General Surgery Resident, R3 Pager [phone] [facility] [place] [address] Rich Pappas MD - 04/24/2014 9:21 AM [...] extubate Initial surgical contact: Miladis at pager [phone] Nithya Andres MD - 04/24/2014 5:25 AM [...] exploration at referring hospital. IR embolization at [facility]. Hospital Day #1 ICU [...] Call team 01/11 for questions: Team Pager [phone] Angeles Acevedo MD - 04/24/2014 2:04 AM PST [facility] DEPARTMENT OF SURGERY EGS Consult Progress Note Division of Trauma and Critical Care ID: Mackenzie Hartley is a 58 year old female with COPD, Crohn's disease, chronic pain, and 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 while anticoagulated with warfarin transferre d to [facility] from [facility] for management of retroperitoneal bleed. 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 [...] Hannah MD General Surgery Resident, R3 Pager [phone] [facility] [place] [address] [place] [address] Rudy Parker M D - 04/23/2014 5:07 PM PSTBRIEF INTERVENTIONAL RADIOLOGY PROCEDURE NOTE DATE: 04/23/2014 5:07 PM PROCEDURE: Pelvic angiography with glue embolization PRE-PROCEDURE DIAGNOSIS: Retroperitoneal hematoma POST-PROCEDURE DIAGNOSIS: Same IR STAFF: Lenny IR FELLOW: Ciera ACCESS: L COURT MAGISTRATE MEDICATIONS: Fentanyl IV 150 mcg Midazolam IV [...] | + +--------+ + + + | [facility] PORTABLE | Routin | 04/27/2014 | [...] | + + + + + | [facility] | [address] | [place] [address] | | | JANELL SHARP | BERTRAM [...] - MARILY[facility] | [address] | [place], [place] | | | [facility] | [address] | [address] | | | TESTS | | | [...] [facility] | [address] | [place] [address] | | | SERVICES, CORE | PARK [...] [facility] | [address] | [place] [address] | | | SERVICES, CORE | PARK [...] | | | LABORATORY | | | [facility]ANDER | | | SERVICES, | | | [...] | + + + + + | [facility] | [address] [facility] | [place] [address] | | | SERVICES, JANELL | BERTRAM [...] - [facility] | [address] | [place], [place] | | | [facility] | [facility] | [address] | | | TESTS | | | [...] (H) | 60 - 99 mg/dL | [facility] - | | | [...] MARILYN | [address] | [place], [place] | | | [facility] | [address] | [address] | | | TESTS | | | [...] [facility] | [address] | [place] [address] | | | SERVICES, CORE | PARK [...] 2.5 mg/dL | [facility] | | | [facility]MA | | | [...] | + + + + + | [facility] | [address] | [place] [address] | | | SERVICES, CORE | BERTRAM [...] | | | LABORATORY | | | NEW ZEALANDER | | | SERVICES, | | | [...] | + + + + + | [facility] | [address] | [place] [address] | | | JANELL SHARP | BERTRAM [...] | + + + + + | [facility] | [address] | [place] [address] | | | SERVICES, JANELL | BERTRAM [...] - [facility] | [address] | [place], [place] | | | [facility] | [address] | [address] | | | TESTS | | | [...] SANDERS | [address] | [place], [place] | | | [facility] | [address] | [address] | | | TESTS | | | [...] + + | [facility] | [address] [facility] | [place] [address] | | | SERVICES, CORE | PARK [...] | + + + + + | [facility] | [address] | [place] [address] | | | SERVICES, CORE | BERTRAM [...] | | | LABORATORY | | | NEW ZEALANDER | | | SERVICES, | | | [...] the MDRD equation recommended by the | [facility] | | National Kidney [...] + | [facility] | [address] | [place] [address] | | | SERVICES, CORE | PARK [...] | + + + + + | [facility] | [address] | [place] [address] | | | SERVICES, JANELL | BERTRAM [...] (H) | 60 - 99 mg/dL | [facility] - | | | [...] SANDERS | [address] | [place], [place] | | | [facility] | [facility] | [address] | | | TESTS | | | [...] SANDERS | [address] | [place], [place] | | | [facility] | [address] | [address] | | | TESTS | | | [...] | | + +---------+ + + | [facility] DEPARTMENT OF | | [...] MARILYN | [address] | [place], [place] | | | [facility] | [address] | [address] | | | TESTS | | | [...] (H) | 60 - 99 mg/dL | [facility] - | | | [...] SANDERS | [address] | [place], [place] | | | [facility] | [address] | [address] | | | TESTS | | | [...] | + + + + + | [facility] | [address] | [place] [address] | | | SERVICES, CORE | PARK [...] | + + + + + | [facility] | [address] [facility] | [place] [address] | | | SERVICES, CORE | BERTRAM [...] | | | LABORATORY | | | NEW ZEALANDER | | | SERVICES, | | | [...] the MDRD equation recommended by the | [facility] | | National Kidney [...] [facility] | [address] | [place] [address] | | | SERVICES, CORE | BERTRAM [...] [facility] | [address] | [place] [address] | | | ARON, JANELL | BERTRAM [...] (H) | 60 - 99 mg/dL | [facility] - | | | [...] MARQU[facility] | [address] | [place], [place] | | | [facility] | [facility] | [address] | | | TESTS | | | [...] SANDERS | [address] | [place], [place] | | | [facility] | [address] | [address] | | | TESTS | | | [...] [facility] | [address] | [place], [place] | | | [facility] | [facility] | [address] | | | TESTS | | | [...] | + + + + + | [facility] | [address] | [place] [address] | | | SERVICES, CORE [...] [facility] | [address] | [place] [address] | | | SERVICES, CORE | PARK [...] | | | LABORATORY | | | NEW ZEALANDER | | | SERVICES, | | | [...] | + + + + + | [facility] | [address] | [place] [address] | | | SERVICES, CORE | PARK [...] | + + + + + | [facility] | [address] | [place] [address] | | | SERVICES, CORE | BERTRAM [...] MARGOPIAM | [address] | [place], [place] | | | [facility] | [address] | [address] | | | TESTS | | | [...] MARILYN | [address] | [place], [place] | | | [facility] | [address] | [address] | | | TESTS | | | [...] [facility] | [address] | [place] [address] | | | SERVICES, CORE | PARK [...] | + + + + + | [facility] | [address] | [place] [address] | | | SERVICES, CORE | PARK [...] | | | LABORATORY | | | NEW ZEALANDER | | | SERVICES, | | | [...] | + + + + + | [facility] [employer] | [address] | [place] [address] | | | SERVICES, JANELL | BERTRAM [...] | + + + + + | [facility] | [address] | [place] [address] | | | SERVICES, JANELL | BERTRAM [...] [facility] | [address] | [place], [place] | | | [facility] | [address] | [address] | | | TESTS | | | [...] (H) | 60 - 99 mg/dL | [facility] - | | | [...] MARILYN | [address] | [place], [place] | | | [facility] | [address] | [address] | | | TESTS | | | [...] | + + + + + | [facility] | [address] | [place] [address] | | | SERVICES, CORE | PARK [...] | + + + + + | [facility] | [address] | [place] [address] | | | SERVICES, CORE | PARK [...] | | | LABORATORY | | | NEW ZEALANDER | | | SERVICES, | | | [...] | + + + + + | [facility] | [address] [facility] | [place] [address] | | | JANELL SHARP | BERTRAM [...] | + + + + + | [facility] | [address] | [place] [address] | | | SERVICES, JANELL | BERTRAM [...] SANDERS | [address] | [place], [place] | | | [facility] | [address] | [address] | | | TESTS | | | [...] | + + + + + | [facility] | [address] | [place] [address] | | | SERVICES, CORE | BERTRAM [...] [facility] | [address] | [place], [place] | | | [facility] | [address] | [address] | | | TESTS | | | [...] - DAVIDAM | [address] | [place], [place] | | | [facility] | [address] | [address] | | | TESTS | | | [...] [facility] | [address] | [place] [address] | | | SERVICES, CORE | PARK [...] LABORATORY | [address] | [place] [address] | | | SERVICES, CORE | PARK [...] | | | LABORATORY | | | NEW ZEALANDER | | | SERVICES, | | | [...] | + + + + + | [facility] | [address] | [place] [address] | | | SERVICES, JANELL | BERTRAM [...] | + + + + + | [facility] | [address] [facility] | [place] [address] | | | JANELL SHARP | BERTRAM [...] | + + + + + | [facility] | [address] | [place] [address] | | | SERVICES, CORE | PARK [...] | + + + + + | [facility] | [address] | [place] [address] | | | SERVICES, CORE | PARK [...] | + + + + + | [facility] | [address] [facility] | [place] [address] | | | SERVICES, CORE | BERTRAM [...] | | | LABORATORY | | | NEW ZEALANDER | | | SERVICES, | | | [...] the MDRD equation recommended by the | [facility] | | National Kidney [...] | + + + + + | [facility] | [address] | [place] [address] | | | SERVICES, CORE | PARK [...] (H) | 0.90 - 1.20 INR | [facility] | | | | | | LABORATORY [...] | + + + + + | [facility] | [address] | [place] [address] | | | SERVICES, CORE | PARK [...] + + + + | [facility] | [address] | [place], [place] | | | [facility] | [address] | [address] | | + + + + + [...] | + + + + + | [facility] | [address] | [place] [address] | | | SERVICES, CORE | PARK [...] | + + + + + | [facility] | [address] | [place] [address] | | | SERVICES, CORE | BERTRAM [...] [facility] | [address] | [place] [address] | | | SERVICES, CORE | PARK [...] | + + + + + | [facility] | [address] | [place] [address] | | | SERVICES, CORE | BERTRAM [...] | | | LABORATORY | | | NEW ZEALANDER | | | SERVICES, | | | [...] the MDRD equation recommended by the | [facility] | | National Kidney [...] | + + + + + | [facility] | [address] | [place] [address] | | | SERVICES, CORE | PARK [...] (H) | 0.90 - 1.20 INR | [facility] | | | | | | LABORATORY [...] [facility] | [address] | [place] [address] | | | SERVICES, CORE | PARK [...] | + + + + + | [facility] | [address] | [place] [address] | | | SERVICES, CORE | EBRTRAM [...] [facility] | [address] | [place] [address] | | | SERVICES, CORE | PARK [...] + + | [facility] | [address] [facility] | [place] [address] | | | SERVICES, CORE | PARK [...] | + + + + + | [facility] | [address] | [place] [address] | | | SERVICES, CORE | BERTRAM [...] (H) | 60 - 99 mg/dL | [facility] - | | | [...] SANDERS | [address] | [place], [place] | | | [facility] | [address] | [address] | | | TESTS | | | [...] | | + +---------+ + + | [facility] DEPARTMENT OF | | [...] [facility] | [address] | [place] [address] | | | ARON, JANELL | PARK [...] | + + + + + | [facility] | [address] [facility] | [place] [address] | | | SERVICES, CORE | BERTRAM [...] | | | LABORATORY | | | NEW ZEALANDER | | | SERVICES, | | | [...] | + + + + + | [facility] | [address] | [place] [address] | | | SERVICES, CORE | PARK [...] | + + + + + | [facility] | [address] | [place] [address] | | | SERVICES, CORE | [address] | | | + + + + + MAGNESIUM, PLASMA (05/02/2014 10:34 PM PST) + +-------+ + + + | Component | Value | Ref Range | Performed | Pathologist | | | | | At | Signature | + +-------+ + + + | MAGNESIUM,P | 2.0 | 1.8 - 2.5 mg/dL | [facility] | | | LASMA | | | [...] | + + + + + | [facility] | [address] | [place] [address] | | | SERVICES, CORE | PARK [...] | | | LABORATORY | | | NEW ZEALANDER | | | SERVICES, | | | [...] | + + + + + | [facility] | [address] | [place] [address] | | | JANELL SHARP | BERTRAM [...] | | | LABORATORY | | | NEW ZEALANDER | | | SERVICES, | | | [...] | + + + + + | [facility] | [address] | [place] [address] | | | SERVICES, CORE | BERTRAM [...] [facility] | [address] | [place], [place] | | | THERAPY | [address] | [address] | | + + + + + [...] [facility] | [address] | [place], [place] | | | THERAPY | [address] | [address] | | + + + + + [...] | + + + + + | [facility] | [address] | [place] [address] | | | SERVICES, CORE | BERTRAM [...] [facility] | [address] | [place] [address] | | | SERVICES, CORE | PARK [...] | + + + + + | [facility] | [address] | [place] [address] | | | ARON, JANELL | BERTRAM [...] | | | LABORATORY | | | NEW ZEALANDER | | | SERVICES, | | | [...] | + + + + + | [facility] | [address] | [place] [address] | | | SERVICES, CORE | [...] [facility] | [address] | [place] [address] | | | SERVICES, CORE | BERTRAM [...] DEPT OF | [address] | [place], [place] | | | CARDIOLOGY | [address] | [address] | | + + + + + X-RAY PORTABLE CHEST 1 VIEW (05/02/2014 2:11 AM PST) + + + + + + | Component | Value | Ref Range | Performed | Pathologist | | | | | At | Signature | + + + + + + | X-RAY | EXAM: [place] CHEST 1 VIEW | | | [...] | | + +---------+ + + | [facility] DEPARTMENT OF | | [...] | + + + + + | [facility] | [address] | [place] [address] | | | SERVICES, JANELL | BERTRAM [...] (H) | 60 - 99 mg/dL | [facility] - | | | [...] SANDERS | [address] | [place], [place] | | | [facility] | [facility] | [address] | | | TESTS | | | [...] [facility] | [address] | [place], [place] | | | [facility] | [address] | [address] | | | TESTS | | | [...] | + + + + + | [facility] | [address] | [place] [address] | | | SERVICES, JANELL | [address] | | | + + + + + X-RAY PORTABLE CHEST 1 VIEW (05/01/2014 3:37 AM PST) + + + + + + | Component | Value | Ref Range | Performed | Pathologist | | | | | At | Signature | + + + + + + | X-RAY | EXAM: [place] CHEST 1 VIEW | | | [...] Bilateral | | | | | | [id number] | | | | | | pleural [...] | + + + + + | [facility] | [address] | [place] [address] | | | SERVICES, CORE | PARK [...] | + + + + + | [facility] | [address] [facility] | [place] [address] | | | SERVICES, CORE | PARK [...] | | | LABORATORY | | | NEW ZEALANDER | | | SERVICES, | | | [...] | + + + + + | [facility] | [address] | [place] [address] | | | JANELL SHARP | BERTRAM [...] | + + + + + | [facility] | [address] | [place] [address] | | | SERVICESJANELL | [address] [...] SANDERS | [address] | [place], [place] | | | [facility] | [address] | [address] | | | TESTS | | | [...] | | + +---------+ + + | [facility] DEPARTMENT OF | | [...] | | + +---------+ + + | [facility] DEPARTMENT OF | | [...] | | + +---------+ + + | [facility] DEPARTMENT OF | | [...] | + + + + + | [facility] | [address] | [place] [address] | | | SERVICES, CORE | BERTRAM [...] | + + + + + | [facility] | [address] [facility] | [place] [address] | | | SERVICES, CORE | BERTRAM [...] [facility] | [address] | [place] [address] | | | JANELL SHARP | BERTRAM [...] | | | LABORATORY | | | NEW ZEALANDER | | | SERVICES, | | | [...] [facility] | [address] | [place] [address] | | | SERVICES, CORE | PARK [...] | | | LABORATORY | | | NEW ZEALANDER | | | SERVICES, | | | [...] (H) | 4 - 11 mmol/L | [facility] | | | GAP(ALB | | [...] | + + + + + | [facility] | [address] | [place] [address] | | | SERVICES, CORE | BERTRAM [...] [facility] | [address] | [place], [place] | | | [facility] | [facility] | [address] | | | TESTS | | | [...] [facility] | [address] | [place] [address] | | | SERVICES, CORE | BERTRAM [...] [facility] | [address] | [place] [address] | | | SERVICES, CORE | PARK [...] (H) | 60 - 99 mg/dL | [facility] | | | PLASMA | | | [...] | | | LABORATORY | | | NEW ZEALANDER | | | SERVICES, | | | [...] | + + + + + | [facility] [employer] | [address] | [place] [address] | | | SERVICES, JANELL | BERTRAM [...] | + + + + + | [facility] | [address] [facility] | [place] [address] | | | SERVICES, CORE | BERTRAM [...] | + + + + + | [facility] | [address] | [place] [address] | | | JANELL SHARP | BERTRAM [...] (H) | 60 - 99 mg/dL | [facility] - | | | [...] SANDERS | [address] | [place], [place] | | | [facility] | [address] | [address] | | | TESTS | | | [...] [facility] | [address] | [place] [address] | | | SERVICES, CORE | PARK [...] [facility] | [address] | [place] [address] | | | SERVICES, CORE | PARK [...] [facility] | [address] | [place] [address] | | | ARON, JANELL | BERTRAM [...] [facility] | [address] | [place] [address] | | | SERVICES, CORE | PARK [...] | | | LABORATORY | | | NEW ZEALANDER | | | SERVICES, | | | [...] | + + + + + | [facility] [employer] | [address] [facility] | [place] [address] | | | SERVICES, CORE | BERTRAM [...] | + + + + + | [facility] | [address] | [place] [address] | | | JANELL SHARP | BERTRAM [...] | + + + + + | [facility] | [address] [facility] | [place] [address] | | | SERVICES, CORE | PARK [...] | | + +---------+ + + | [facility] DEPARTMENT OF | | [...] | + + + + + | [facility] | [address] | [place] [address] | | | SERVICES, JANELL | BERTRAM [...] + + + | [facility] | [address] | [place], [place] | | | OSCAR FRANNIE OF [facility] | [address] | [address] | | | TESTS | | | | + + + + + X-RAY ABD LTD FEEDING TUBE EVAL PORTABLE (04/27/2014 10:33 AM PST) + + + + + + | Component | Value | Ref Range | Performed | Pathologist | | | | | At | Signature | + + + + + + | X-RAY ABD | STUDY: [place] ABD LTD | | | | | [...] [facility] | [address] | [place] [address] | | | ARON, JANELL | PARK [...] | + + + + + | [facility] | [address] | [place] [address] | | | SERVICES, CORE | BERTRAM [...] | + + + + + | [facility] | [address] | [place] [address] | | | SERVICES, CORE | BERTRAM [...] [facility] | [address] | [place] [address] | | | SERVICES, CORE | BERTRAM [...] | | | LABORATORY | | | [place] | | | SERVICES, | | | [...] | + + + + + | [facility] | [address] | [place] [address] | | | SERVICES, CORE | PARK [...] [facility] | [address] | [place] [address] | | | SERVICES, CORE | PARK [...] | + + + + + | [facility] | [address] [facility] | [place] [address] | | | ARON, JANELL | BERTRAM [...] | + + + + + | [facility] | [address] [facility] | [place] [address] | | | SERVICES, JANELL | BERTRAM [...] | + + + + + | [facility] | [address] | [place] [address] | | | SERVICES, CORE | BERTRAM [...] [facility] | [address] | [place] [address] | | | SERVICES, CORE | PARK [...] | | | LABORATORY | | | [place] | | | SERVICES, | | | [...] | + + + + + | [facility] | [address] | [place] [address] | | | SERVICES, CORE | BERTRAM [...] PRIMARY | | | | | | TOE POUNDER: Rudy | | | | | | [...] [facility] | [address] | [place], [place] | | | [facility] | [address] | [address] | | | TESTS | | | [...] | | | | | | Kirstie Poyntelle | | | | + + + [...] | + + + + + | [facility] | [address] | [place] [address] | | | ARON, JANELL | BERTRAM [...] | | + +---------+ + + | [facility] DEPARTMENT OF | | [...] | + + + + + | [facility] | [address] | [place] [address] | | | SERVICES, CORE | BERTRAM [...] | + + + + + | [facility] | [address] | [place] [address] | | | SERVICES, CORE | BERTRAM [...] | + + + + + | [facility] | [address] | [place] [address] | | | JANELL SHARP | BERTRAM [...] | + + + + + | [facility] | [address] | [place] [address] | | | SERVICES, CORE | BERTRAM [...] | + + + + + | [facility] | [address] | [place] [address] | | | SERVICES, CORE | PARK [...] | | | LABORATORY | | | NEW ZEALANDER | | | SERVICES, | | | [...] the MDRD equation recommended by the | [facility] | | National Kidney [...] | + + + + + | [facility] | [address] | [place] [address] | | | SERVICES, CORE | BERTRAM [...] [facility] | [address] | [place] [address] | | | SERVICES, CORE | PARK [...] | + + + + + | [facility] | [address] | [place] [address] | | | SERVICES, CORE | BERTRAM [...] (H) | 60 - 99 mg/dL | [facility] - | | | [...] [facility] | [address] | [place], [place] | | | [facility] | [address] | [address] | | | TESTS | | | [...] | | | LABORATORY | | | NEW ZEALANDER | | | SERVICES, | | | [...] the MDRD equation recommended by the | [facility] | | National Kidney [...] | + + + + + | [facility] | [address] | [place] [address] | | | JANELL SHARP | BERTRAM [...] (H) | 60 - 99 mg/dL | [facility] - | | | [...] [facility] | [address] | [place], [place] | | | [facility]ARE | [address] | [address] | | | TESTS | | | [...] [facility] | [address] | [place] [address] | | | SERVICES, CORE | PARK [...] + + + + + | [facility] | [address] | [place] [address] | | | ARON, JANELL | BERTRAM [...] + + + + | PRODUCT | [id number] | | [facility] | | | UNIT [...] + + + + | BLOOD | [id number] | | [facility] | | | PRODUCT [...] DEPARTMENT OF | [address] | [place] [address] | | | PATHOLOGY | [address] [...] + + + + | PRODUCT | [id number] | | [facility] | | | UNIT [...] + + + + | BLOOD | [id number] | | [facility] | | | PRODUCT [...] | + + + + + | [facility] DEPARTMENT OF | [address] | [place] [address] | | | PATHOLOGY | [address] [...] [facility] | [address] | [place] [address] | | | SERVICES, CORE | PARK [...] | + + + + + | [facility] | [address] | [place] [address] | | | SERVICES, CORE | BERTRAM [...] | | | LABORATORY | | | NEW ZEALANDER | | | SERVICES, | | | [...] + + | [facility] | [address] | [place] [address] | | | SERVICES, CORE | PARK [...] [facility] | [address] | [place] [address] | | | SERVICES, CORE | BERTRAM [...] | + + + + + | [facility] | [address] | [place] [address] | | | SERVICES, CORE | PARK [...] [facility] | [address] | [place] [address] | | | SERVICES, CORE | PARK [...] | + + + + + | [facility] | [address] | [place] [address] | | | SERVICES, CORE | BERTRAM [...] + + + | [facility] | [address] | [place], [place] | | | [facility]ARE | [address] | [address] | | | TESTS | | | [...] [facility] | [address] | [place], [place] | | | [facility] CARE | [address] | [address] | | | TESTS | | | [...] | + + + + + | [facility] | [address] | [place] [address] | | | SERVICES, JANELL | BERTRAM [...] | + + + + + | [facility] | [address] | [place] [address] | | | SERVICES, JANELL | BERTRAM [...] | + + + + + | [facility] | [address] | [place] [address] | | | SERVICES, CORE | PARK [...] | + + + + + | [facility] | [address] | [place] [address] | | | SERVICES, JANELL | BERTRAM [...] [facility] | [address] | [place] [address] | | | SERVICES, CORE | PARK [...] | | | LABORATORY | | | NEW ZEALANDER | | | SERVICES, | | | [...] | + + + + + | [facility] | [address] | [place] [address] | | | SERVICES, JANELL | BERTRAM [...] | + + + + + | [facility] | [address] | [place] [address] | | | SERVICES, CORE | PARK [...] | + + + + + | [facility] | [address] | [place] [address] | | | JANELL SHARP | PARK [...] RESPIRATORY | [address] | [place], [place] | | | THERAPY | [address] | [address] | | + + + + + [...] [facility] | [address] | [place], [place] | | | THERAPY | [address] | [address] | | + + + + + [...] | | | LABORATORY | | | NEW ZEALANDER | | | SERVICES, | | | [...] | + + + + + | [facility] | [address] | [place] [address] | | | SERVICES, CORE | BERTRAM [...] | + + + + + | [facility] | [address] | [place] [address] | | | SERVICES, JANELL | BERTRAM [...] | + + + + + | [facility] | [address] | [place] [address] | | | SERVICES, CORE | PARK [...] (L) | 36.0 - 46.0 % | [facility] | | | | | | LABORATORY [...] [facility] | [address] | [place] [address] | | | SERVICES, CORE [...] [facility] | [address] | [place] [address] | | | SERVICES, CORE | PARK [...] | + + + + + | [facility] | [address] | [place] [address] | | | SERVICES, CORE | PARK [...] | + + + + + | [facility] | [address] | [place] [address] | | | SERVICES, CORE | PARK [...] | | | LABORATORY | | | NEW ZEALANDER | | | SERVICES, | | | [...] the MDRD equation recommended by the | [facility] | | National Kidney [...] | + + + + + | [facility] | [address] | [place] [address] | | | SERVICES, CORE | BERTRAM [...] | + + + + + | [facility] | [address] | [place] [address] | | | SERVICES, CORE | BERTRAM [...] [facility] | [address] | [place], [place] | | | [facility] | [address] | [address] | | | TESTS | | | [...] PRIMARY | | | | | | TOE POUNDER: Rudy | | | | | | [...] 5 | | | | | | Bruneian vascular sheath | | | | | [...] | | | | for a 5 Bruneian | | | | | | IMAcatheter. [...] | | | | artery. A 3 Bruneian | | | | | | microcatheterwas [...] DEPT OF | [address] | [place], [place] | | | CARDIOLOGY | [address] | [address] | | + + + + + [...] + + + + | PRODUCT | [id number] | | [facility] | | | UNIT [...] + + + + | BLOOD | [id number] | | [facility] | | | PRODUCT [...] DEPARTMENT OF | [address] | [place], [place] [address] | | | PATHOLOGY | [address] [...] + + + + | PRODUCT | [id number] | | [facility] | | | UNIT [...] + + + + | BLOOD | [id number] | | [facility] | | | PRODUCT [...] DEPARTMENT OF | [address] | [place] [address] | | | PATHOLOGY | [address] [...] + + + + | PRODUCT | [id number] | | [facility] | | | UNIT [...] + + + + | BLOOD | [id number] | | [facility] | | | PRODUCT [...] DEPARTMENT OF | [address] | [place], [place] [address] | | | PATHOLOGY | [address] [...] + + + + | PRODUCT | [id number] | | [facility] | | | UNIT [...] + + + + | BLOOD | [id number] | | [facility] | | | PRODUCT [...] MEDICAL CENTER | [address] | [place] [address] | | | PATHOLOGY | [address] [...] + + + + | PRODUCT | [id number] | | [facility] | | | UNIT [...] + + + + | BLOOD | [id number] | | [facility] | | | PRODUCT [...] DEPARTMENT OF | [address] | [place] [address] | | | PATHOLOGY | [address] [...] + + + + | PRODUCT | [id number] | | [facility] | | | UNIT [...] + + + + | BLOOD | [id number] | | [facility] | | | PRODUCT [...] | + + + + + | [facility] DE[facility] | [address] | [place] [address] | | | PATHOLOGY | [address] | | | + + + + + X-RAY PORTABLE CHEST 1 VIEW (04/23/2014 11:41 AM PST) + + + + + + | Component | Value | Ref Range | Performed | Pathologist | | | | | At | Signature | + + + + + + | X-RAY | EXAM: [place] CHEST 1 VIEW | | | [...] + + + + | PRODUCT | [id number] | | [facility] | | | UNIT [...] + + + + | BLOOD | [id number] | | [facility] | | | PRODUCT [...] DEPARTMENT OF | [address] | [place] [address] | | | PATHOLOGY | [address] [...] + + + + | PRODUCT | [id number] | | [facility] | | | UNIT [...] + + + + | BLOOD | [id number] | | [facility] | | | PRODUCT [...] MEDICAL CENTER | [address] | [place] [address] | | | PATHOLOGY | [address] [...] + + + + | PRODUCT | [id number] | | [facility] | | | UNIT [...] + + + + | BLOOD | [id number] | | [facility] | | | PRODUCT [...] DEPARTMENT OF | [address] | [place] [address] | | | PATHOLOGY | [address] [...] + + + + | PRODUCT | [id number] | | [facility] | | | UNIT [...] + + + + | BLOOD | [id number] | | [facility] | | | PRODUCT [...] MEDICAL CENTER | [address] | [place] [address] | | | PATHOLOGY | [address] [...] + + + + | PRODUCT | [id number] | | [facility] | | | UNIT [...] + + + + | BLOOD | [id number] | | [facility] | | | PRODUCT [...] DEPARTMENT OF | [address] | [place] [address] | | | PATHOLOGY | [address] [...] + + + + | PRODUCT | [id number] | | [facility] | | | UNIT [...] + + + + | BLOOD | [id number] | | [facility] | | | PRODUCT [...] MEDICAL CENTER | [address] | [place] [address] | | | PATHOLOGY | [address] [...] + + + + | PRODUCT | [id number] | | [facility] | | | UNIT [...] + + + + | BLOOD | [id number] | | [facility] | | | PRODUCT [...] DEPARTMENT OF | [address] | [place] [address] | | | PATHOLOGY | [address] [...] + + + + | PRODUCT | [id number] | | [facility] | | | UNIT [...] + + + + | BLOOD | [id number] | | [facility] | | | PRODUCT [...] MEDICAL CENTER | [address] | [place] [address] | | | PATHOLOGY | [address] [...] + + + + | PRODUCT | [id number] | | [facility] | | | UNIT [...] + + + + | BLOOD | [id number] | | [facility] | | | PRODUCT [...] DEPARTMENT OF | [address] | [place] [address] | | | PATHOLOGY | [address] [...] + + + + | PRODUCT | [id number] | | [facility] | | | UNIT [...] + + + + | BLOOD | [id number] | | [facility] | | | PRODUCT [...] MEDICAL CENTER | [address] | [place] [address] | | | PATHOLOGY | [address] [...] + + + + | PRODUCT | [id number] | | [facility] | | | UNIT [...] + + + + | BLOOD | [id number] | | [facility] | | | PRODUCT [...] DEPARTMENT OF | [address] | [place] [address] | | | PATHOLOGY | [address] [...] + + + + | PRODUCT | [id number] | | [facility] | | | UNIT [...] + + + + | BLOOD | [id number] | | [facility] | | | PRODUCT [...] MEDICAL CENTER | [address] | [place] [address] | | | PATHOLOGY | [address] [...] + + + + | PRODUCT | [id number] | | [facility] | | | UNIT [...] + + + + | BLOOD | [id number] | | [facility] | | | PRODUCT [...] DEPARTMENT OF | [address] | [place] [address] | | | PATHOLOGY | [address] [...] + + + + | PRODUCT | [id number] | | [facility] | | | UNIT [...] + + + + | BLOOD | [id number] | | [facility] | | | PRODUCT [...] MEDICAL CENTER | [address] | [place] [address] | | | PATHOLOGY | [address] [...] [facility] | [address] | [place] [address] | | | SERVICES, JANELL | BERTRAM [...] [facility] | [address] | [place] [address] | | | SERVICES, CORE | PARK [...] | + + + + + | [facility] | [address] | [place] [address] | | | SERVICES, [facility] [place] | [address] | [...] | | | LABORATORY | | | NEW ZEALANDER | | | SERVICES, | | | [...] [facility] | [address] | [place] [address] | | | SERVICES, CORE | PARK [...] [facility] | [address] | [place] [address] | | | SERVICES, CORE | PARK [...] [facility] | [address] | [place] [address] | | | SERVICES, CORE | PARK [...] | + + + + + | [facility] | [address] | [place] [address] | | | JANELL SHARP | BERTRAM [...] 89 | 60 - 99 mg/dL | [facility] - | | | [...] [facility] | [address] | [place], [place] | | | [facility] | [address] | [address] | | | TESTS | | | [...] | + + + + + | [facility] | [address] | [place] [address] | | | SERVICES, | [address] [...] [facility] | [address] | [place] [address] | | | SERVICES, | [address] [...] + + + + | PRODUCT | [id number] | | [facility] | | | UNIT [...] + + + + | BLOOD | [id number] | | [facility] | | | PRODUCT [...] MEDICAL CENTER | [address] | [place] [address] | | | PATHOLOGY | [address] [...] + + + + | PRODUCT | [id number] | | [facility] | | | UNIT [...] + + + + | BLOOD | [id number] | | [facility] | | | PRODUCT [...] DEPARTMENT OF | [address] | [place] [address] | | | PATHOLOGY | [address] [...] + + + + | PRODUCT | [id number] | | [facility] | | | UNIT [...] + + + + | BLOOD | [id number] | | [facility] | | | PRODUCT [...] MEDICAL CENTER | [address] | [place] [address] | | | PATHOLOGY | [address] [...] + + + + | PRODUCT | [id number] | | [facility] | | | UNIT [...] + + + + | BLOOD | [id number] | | [facility] | | | PRODUCT [...] DEPARTMENT OF | [address] | [place] [address] | | | PATHOLOGY | [address] [...] + + + + | PRODUCT | [id number] | | [facility] | | | UNIT [...] + + + + | BLOOD | [id number] | | [facility] | | | PRODUCT [...] MEDICAL CENTER | [address] | [place] [address] | | | PATHOLOGY | [address] [...] + + + + | PRODUCT | [id number] | | [facility] | | | UNIT [...] + + + + | BLOOD | [id number] | | [facility] | | | PRODUCT [...] MEDICAL CENTER | [address] | [place] [address] | | | PATHOLOGY | [address] [...] | | | | | modification) on [facility] 05/02/14 at | | | | [...] | | | | ONCE, 1 dose, [facility] 04/25/14 at | | AM PST [...] | | | | | modification) on [facility] 05/02/14 at | | | | [...] | | | | | dose on [facility] 05/02/14 at 0530, | | | [...] PST | | | | | Starting [facility] 05/02/14 at 0704, | | | | [...] | | | tube, ONCE, 1 dose, [facility] 04/25/14 | | PM PST | | | | | at 1330 | | | | | | + +-------+ +--------+---+---+ +---+---+ | | | +---+---+ + +-------+ +--------+---+---+ | potassium chloride (KLOR-CON) | Given | 05/01/19 | 40 mEq | | | | packet 40 mEq 40 mEq, feeding | | 15 5:39 | | | | | tube, ONCE, 1 dose, [facility] 05/01/14 | | AM PST | [...] | | | | | modification) on [facility] 04/27/14 at | | | [...]
--- OUTSIDE RECORDS SUMMARY | ~2019-11-05 | XMS | Encounter Summary ---
Demographics + + + | Address | [address] | | | [place] [address] | + + + | Home Phone [...] Providers + +------+ + | Care Rn Triage Name | Role | Phone | + [...] Provider Unknown | | | | | [place], [place] | [phone] | | | | | [address] | | | | | | [phone] | | | +--------+ + + + [...]
--- OUTSIDE RECORDS SUMMARY | ~2019-11-05 | XMS | Encounter Summary ---
Demographics + + + | Address | [address] | | | [place] [address] | + + + | Home Phone [...] [place], [place] | | | | | [address] | | + + + + + | Cami Sawyer | ECON | Unknown | | + + + + + Care Team Providers + +------+ + | Care Car Barn Laborer Name | Role | Phone | [...] 2015 | | General Surgery at | [facility] [address] | | | | | [facility] [address] | | | | | [address] | [place], [place] | | | | | Physicians [place], | [address] | | | | | 2nd Floor | [phone] | | | | | [place], [place] | | | | | | [address] | | | | | | [phone] | | | +--------+ + + + [...]
--- OUTSIDE RECORDS SUMMARY | ~2019-11-05 | XMS | Encounter Summary ---
Demographics + + + | Address | [address] | | | [place] [address] | + + + | Home Phone [...] [place], [place] | | | | | [address] | | + + + + + | Cami Sawyer | ECON | Unknown | | + + + + + Care Team Providers + +------+ + | Care Pig Farmer Name | Role | Phone | + [...] | | OPAL Howard Romeo Kristen | [address] [facility] | evacuation of | | | | Rd [facility] | [facility] [address] | hematoma, control of | | | | Hospital Admitting | [place], [place] | retroperitonieal | | | | Desk Located on the | [address] | hemorage, lysis of | | | | 9th floor | [phone] | adhesions, wound vac | | | | [place], [place] | | placement, and | | | | [address] | | abdominal wall | | | [...] different f rom the original. [facility] DEPARTMENT OF SURGERY EMERGENCY GENERAL SURGERY Division [...] continued to progress and is discharged to intermediate facility [facility]. Mackenzie Hartley is discharged in [...] different f rom the original. [facility] DEPARTMENT OF SURGERY EMERGENCY [...] while anticoagulated with warfarin transferred to [facility] from [facility] for hanh gement of retroperitoneal [...] diet Discharge [place]: [place] [phone] pager number [facility] [address] [facility] [phone] Jean-Claude Chaidez DM D, MD - 05/12/2014 7:[address] 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 from [facility] for management of retroperitoneal bleed. [...] while anticoagulated with warfarin transferred to [facility] from [facility] for management of retroperitoneal bleed. [...] if she wants to see the [facility] GI team - Stage I pressure [...] VIBRA since would be close to [facility] and she would benefit for aggres [...] complication 03/12/2012 Jean-Claude Albrecht D.M.D., M.D. [facility] 10A [address] [facility] [address] [place] [phone] This assessment and plan was formulated both [...] - 05/11/2014 8:[address] 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 from [facility] for management of retroperitoneal bleed. [...] while anticoagulated with warfarin transferred to [facility] from [facility] for management of retroperitoneal bleed. [...] if she wants to see the [facility] GI team - Stage I pressure [...] VIBRA since would be close to [facility] and she would benefit for aggres [...] complication 03/12/2012 Jean-Claude Albrecht D.M.D., M.D. [facility] [address] [place] [address] This assessment and plan was formulated both [...] being active. Pt's has been at the [facility] supporting her. Pt is not roman catholic but appreciates support. Intervention: Provided a listening presence and explored pt's anxieties, worries and hopes. Plan: Spiritual care remains available. Yvette Jolly, [facility] / [facility] phone # [phone] pager # [phone] on-call # [phone] signed by Lulu Diaz at 05/10/2014 12:58 PM Andrew Horne Md - 05/10/2014 7:[address] 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 from [facility] for management of retroperitoneal bleed. [...] while anticoagulated with warfarin transferred to [facility] from [facility] for management of retroperitoneal bleed. [...] if she wants to see the [facility] GI team - Stage I pressure [...] JJ since would be close to [facility] and she would benefit for marcela [...] with complication 03/12/[address] [facility] [address] [facility] [place] [address] This assessment and plan was [...] this note might be different from the [facility]. 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 from [facility] for management of retroperitoneal bleed. [...] while anticoagulated with warfarin transferred to [facility] from [facility] for management of retroperitoneal bleed. [...] if she wants to see the [facility] GI team - Stage I pressure [...] SONIAA since would be close to [facility] and she would benefit for aggres [...] with complication 03/12/[address] [facility] [address]A [address] [place] [address] This assessment and plan was [...] note might be different from the orig [facility]. 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 from [facility] for management of retroperitoneal bleed. [...] Imaging No new Cultures BLOOD CULTURE [facility] (no units) Date Value Range Status [...] while anticoagulated with warfarin transferred to [facility] from [facility] for management of retroperitoneal bleed. [...] if she wants to see the [facility] GI team - Stage I pressure [...] SONIAA since would be close to [facility] and she would benefit for marcela [...] with complication 03/12/[address] 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 from [facility] for management of retroperitoneal bleed. [...] Imaging No new Cultures BLOOD CULTURE [facility] (no units) Date Value Range Status [...] while anticoagulated with warfarin transferred to [facility] from [facility] for management of retroperitoneal bleed. [...] with complication 03/12/[address] 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 from [facility] for management of retroperitoneal bleed. [...] Imaging No new Cultures BLOOD CULTURE [facility] (no units) Date Value Range Status [...] while anticoagulated with warfarin transferred to [facility] from [facility] for management of retroperitoneal bleed. [...] continued DHT,TF - Diet: NPO - per TRANSIT PROOF MACHINE OPERATOR, high risk of aspiration - [...] with complication 03/12/[address] [facility] [address]A [address] [place] [address] This assessment and plan was [...] note might be different from the orig [facility]. 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 from [facility] for management of retroperitoneal bleed. [...] Imaging No new Cultures BLOOD CULTURE [facility] (no units) Date Value Range Status [...] while anticoagulated with warfarin transferred to [facility] from [facility] for management of retroperitoneal bleed. [...] with complication 03/12/[address] [facility] [address]A [address] [place] [phone] This assessment and plan was formulated both [...] mg 110 mg feeding tube DAILY Phil Ramriez MD - 05/04/2014 8:26 AM PSTI saw and evaluated the patient. I agree with the findings an d the plan of care as documented in the resident s note. PHIL VARMA MD [facility] [address]A [address] [place] [address] Rosa Sauer MD - 05/04/2014 8:26 AM [...] referring hospital. She was transferred to [facility] f or active hemorrhage and underwent [...] rounds. Rosa Reynoso, R2 SICU/Trauma Personal pager: [phone] Team pager: [phone] Angeles Acevedo MD - 05/04/2014 7:08 AM PST [facility] DEPARTMENT OF SURGERY EGS ICU Progress Note Division of Trauma and Critical Care ID: Mackenzie Hartley is a 58 year old female with COPD, Crohn's disease, chronic pain, and 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 while anticoagulated with warfarin transferre d to [facility] from [facility] for management of retroperitoneal bleed. [...] while anticoagulated with warfarin transferred to [facility] from [facility] for management of retroperitoneal bleed. She has required repeated transfers to ICU for respiratory status. She has been diuresed ap propriately while in the ICU and O2 needs have decreased significantly. Will transfer to [facility] or, but need to keep a [...] Hannah MD General Surgery Resident, R3 Pager [phone] [facility] [address] [place] [address] Jf Jones MD - 05/03/2014 9:38 AM [...] - TF at goal, + BM Dysphagia: TRANSIT PROOF MACHINE OPERATOR following- remains NPO Anasarca: compression [...] Call team 01/11 for questions: Team Pager [phone] ATTENDING ADDENDUM: I saw and examined Mackenzie [...] Erin Christensen PA-C. Jf Wiseman MD FACS diabetes specialist Division of Trauma, Critical Care, and Acute Care Surgery [phone] Elda Emmanuel MD - 05/03/2014 3:49 AM PST EMERGENCY GENERAL SURGERY ICU PROGRESS NOTE: Attending Physician: Jf Wiseman MD 05/03/2014 ID: Mackenzie Hartley is a 58 year old female with COPD, Crohn's disease, chronic pain, and coagulopa thy resulting in splenic artery thrombosis while anticoagulated with warfarin transferred to [facility] from [facility] for management of retroperitoneal bleed. [...] 110 mg, 110 mg, feeding tube, DAILY, fJ Wiseman MD VITAL SIGNS: Temp Av.9 C [...] while anticoagulated with warfarin transferred to [facility] from [facility] for management of retroperitoneal bleed. [...] this patient encounter. Elda Glez MD Pager [phone] Plastic Surgery R2 [facility] Diagnoses: 555.2 [...] holding Q6W Remicade- will consult hematology in [facility] regarding of timing of resuming remicade Severe malnutrition: - TF at goal, + BM, Dysphagia: TRANSIT PROOF MACHINE OPERATOR following- remains NPO Anasarca: compression [...] Call team 01/11 for questions: Team Pager [phone] ATTENDING ADDENDUM: I saw and examined Mackenzie [...] Marge Harris PA-C. Jf Wiseman MD FACS diabetes specialist Division of Trauma, Critical Care, and Acute Care Surgery [phone] ngeles Hannah MD - 05/02/2014 6:55 AM PST [facility] DEPARTMENT OF SURGERY EGS ICU Progress Note Division of Trauma and Critical Care ID: Mackenzie Hartley is a 58 year old female with COPD, Crohn's disease, chronic pain, and 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 while anticoagulated with warfarin transferre d to [facility] from [facility] for management of retroperitoneal bleed. [...] while anticoagulated with warfarin transferred to [facility] from [facility] for management of retroperitoneal bleed. [...] Hannah MD General Surgery Resident, R3 Pager [phone] [place] [phone] Kristina, Angeles Hanna MD - 05/02/2014 2:14 [...] Hannah MD General Surgery Resident, R3 Pager [phone] Jean-Claude Chaidez DMD, MD - 05/01/2014 10:36 AM PST [facility] DEPARTMENT OF SURGERY EGS Progress Note ID: Mackenzie Hartley is a 58 year old female with COPD, Crohn's disease, chronic pain, and 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 while anticoagulated with warfarin transferre d to [facility] from [facility] for management of retroperitoneal bleed. [...] while anticoagulated with warfarin transferred to [facility] from [facility] for management of retroperitoneal bleed. Overall, she is improving. However, remains tachycardic with leukocytosis - WBC [address] 05/01 showed - moderate ascites and pleural effusions and hematoma. Neuro: dilaudid IV PRN Speech: following continue daily to eval swallow CV: HD stable L GORE MAKER PSA resolved Continue IV lasix today 20 [...] acute care hospitalization Jean-Claude Albrecht D.M.D., M.D. [facility] [place] [address] [place] [place] [address] Jf Jones MD - 04/30/2014 11:08 AM [...] referring hospital. She was transferred to [facility] fo r active hemorrhage and underwent [...] malnutrition: - pulled DHT- refusing replacement. Await TRANSIT PROOF MACHINE OPERATOR eval if passes swallow will give chance to prove adequate po intake. Expect will require TFs again Dysphagia: await TRANSIT PROOF MACHINE OPERATOR eval today. Cont meds and [...] Call team 01/11 for questions: Team Pager [phone] ATTENDING ADDENDUM: I saw and examined Mackenzie [...] Marge Harris PA-C. Jf Wiseman MD FACS diabetes specialist Division of Trauma, Critical Care, and Acute Care Surgery [phone] Angeles Acevedo MD - 04/30/2014 1:18 AM PST [facility] DEPARTMENT OF SURGERY EGS ICU Progress Note Division of Trauma and Critical Care ID: Mackenzie Hartley is a 58 year old female with COPD, Crohn's disease, chronic pain, and 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 while anticoagulated with warfarin transferre d to [facility] from [facility] for management of retroperitoneal bleed. [...] while anticoagulated with warfarin transferred to [facility] from [facility] for management of retroperitoneal bleed. Overall, she is improving. However, remains tachycardic with leukocytosis -- difficult to t ease out if this is secondary to asplenia. Will obtain CT abd pelvis today to clarify. Neuro: dilaudid IV PRN and intermittent versed for sedation CV: HD stable L GORE MAKER PSA resolved Pulm: titrate to O2 >92% [...] Hannah MD General Surgery Resident, R3 Pager [phone] [facility] [address] [place] [address] Aravind Morales MD - 04/29/2014 11:43 AM PSTICU Attending: I saw and examined Mackenzie Hartley ([id number]) with Erin Christensen PA-C on 04/29/14 and [...] documented by valentin HASTINGS. Aravind Massey MD Produce Clerk Trauma, Critical Care & Acute Care Surgery [...] referring hospital. She was transferred to [facility] fo r active hemorrhage. Hospital Day [...] resolving cont current H2O via DHT Dysphagia: TRANSIT PROOF MACHINE OPERATOR consulted, ice chips only. Cont [...] Call team 01/11 for questions: Team Pager [phone] Chelly Blum MD,M PH - 04/28/2014 3:03 [...] referring hospital. She was transferred to [facility] fo r active hemorrhage. Hospital Day [...] Hyernatremia: resolving, reduce H2O to 30ml/hr Dysphagia: TRANSIT PROOF MACHINE OPERATOR consulted, ice chips only. Cont [...] Call team 01/11 for questions: Team Pager [phone] Angeles Acevedo MD - 04/28/2014 5:18 AM PST [facility] DEPARTMENT OF SURGERY EGS ICU Progress Note Division of Trauma and Critical Care ID: Mackenzie Hartley is a 58 year old female with COPD, Crohn's disease, chronic pain, and 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 while anticoagulated with warfarin transferre d to [facility] from [facility] for management of retroperitoneal bleed. She is s/p ex lap, splenectomy, and packing with lap pads at OSH and from reopening of laparotomy, evacua tion of 2-3 L of intraabdominal hematoma, closure of open abdomen SUBJECTIVE: Extubated, neurologically doing much better. 3 L NC Underwent successful thrombin injection of L GORE MAKER pseudoaneurysm by IR 04/26 MEDICATIONS: Current facility-administered [...] while anticoagulated with warfarin transferred to [facility] from [facility] for management of retroperitoneal bleed. Neuro: dilaudid IV PRN and intermittent versed for sedation CV: HD stable Per vascular: arterial duplex of L GORE MAKER to assess for stability of PSA shows [...] Hannah MD General Surgery Resident, R3 Pager [phone] [facility] [address] [address] Xin Irizarry M D - 04/27/2014 11:55 [...] imaging and laboratory study results EPIC DEPARTMENT: [id number] - HEM [facility]ULTY [facility] Place of Service: - Inpatient Date of Service: 04-27-2014 Modifiers: GC - Resident Involved Suggested CPT: 71459 - Initial, Comp; Mod complex 50 min XIN AGEE MD [facility] [address] [place] [address] wRudy powers Do - 04/27/2014 11:55 AM PST Hematology Consult Progress Note Primary Service: EGS Primary Attending: Jf Wiseman MD Hospital Length of Stay: 4 Interval Events: - extubated - thrombin injection to GORE MAKER pseudoaneurysm - heparin gtt started last night Subjective: Patient is unable to provide history as she remains encephalopathic. Did speak with her , who confirmed history obtained in initial heme consult note. States she givens s been on warfarin since her 2011 [facility] admission with no known thrombotic events [...] nt and plan. Rudy Sarmiento, DO [facility] Internal Medicine PGY3 Pager [phone] Mirela Josue MD - 04/27/2014 10:[address] [facility] Department of Surgery Progress Note Author: [...] underwent successful thrombin injection of the left GORE MAKER pseudoaneurysm by IR last night. Heparin restarted [...] ultraso und guided thrombin injection of left GORE MAKER pseudoanuerysm. Will order arterial duplex of left GORE MAKER to assess for stability of pseudoaneurysm Monitor [...] hemorrhage vs HCAP LUCY MARKS MD [facility] [address] [place] [address] This assessment and plan was formulated both independently and in conjunction with the [facility] ular Surgery Team as well as the attending provider of record above regarding management of this patient and their medical issues. It is accurate to the best of my knowledge, and is s ubject to modification based on clinical developments, new data, or final imaging results. [facility] staff I saw and evaluated the patient. I agree with the findings and the plan of care as jannie hair in the resident s note. Left femoral pseudoaneurysm appears resolved. Stable from [facility] standpoint. No further imaging required unless clinical status changes. Mirela Thompson M.D. [facility] Vascular Surgery [address] [facility] [place] [address] Email: [email or web address] Jf Jones MD - 04/27/2014 [...] referring hospital. She was transferred to [facility] fo r active hemorrhage. Hospital Day [...] H2O Hyernatremia: water 100ml/hr via DHT Dysphagia: TRANSIT PROOF MACHINE OPERATOR consulted, ice chips only JULIANE: [...] Call team 01/11 for questions: Team Pager [phone] ATTENDING ADDENDUM: I saw and examined Mackenzie [...] Erin Christensen PA-C. Jf Wiseman MD FACS diabetes specialist Division of Trauma, Critical Care, and Acute Care Surgery [phone] ankerElda MD - 04/27/2014 4:52 AM PST EMERGENCY GENERAL SURGERY ICU PROGRESS NOTE: Attending Physician: Jf Wiseman MD 04/27/2014 ID: Mackenzie Hartley is a 58 year old female with COPD, Crohn's disease, chronic pain, and coagulopa thy resulting in splenic artery thrombosis while anticoagulated with warfarin transferred to [facility] from [facility] for management of retroperitoneal bleed. [...] HR EVENTS: - Incidentally found to have GORE MAKER pseudoaneurysm, injected with thrombin by IR - [...] elemental, 110 mg total salt, oral, DAILY, Bratolo Thacker MD VITAL SIGNS: Temp Av.1 C [...] while anticoagulated with warfarin transferred to [facility] from [facility] for management of retroperitoneal bleed. [...] this patient encounter. Elda Glez MD Pager [phone] Plastic Surgery R2 [facility] Diagnoses: 555.2 [...] Attending:Dr. Lenny Calhoun MD (Fellow)/pager: Dr. Vang [phone] Medications Procedure Meds: Dilaudid IV 0.5mg Midazolam [...] referring hospital. She was transferred to [facility] fo r active hemorrhage. Hospital Day [...] Call team 01/11 for questions: Team Pager [phone] Angeles Acevedo MD - 04/26/2014 5:24 AM PST [facility] DEPARTMENT OF SURGERY EGS ICU Progress Note Division of Trauma and Critical Care ID: Mackenzie Hartley is a 58 year old female with COPD, Crohn's disease, chronic pain, and 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 while anticoagulated with warfarin transferre d to [facility] from [facility] for management of retroperitoneal bleed. [...] while anticoagulated with warfarin transferred to [facility] from [facility] for management of retroperitoneal bleed. [...] 5 days. Dispo: continue critical care. Angeles Hannha MD General Surgery Resident, R3 Pager [phone] [facility] & [address] [place] [address] Nithya Andres MD - 04/25/2014 6:40 AM PSTTSICU Attending 04/25/14 58 yo woman critically ill with complex surgical and medical history, transferred to [facility] w ith intraabdominal and retroperitoneal hemorrhage [...] Call team 01/11 for questions: Team Pager [phone] Agneles Acevedo MD - 04/25/2014 4:39 AM PST [facility] DEPARTMENT OF SURGERY EGS ICU Progress Note Division of Trauma and Critical Care ID: Mackenzie Hartley is a 58 year old female with COPD, Crohn's disease, chronic pain, and 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 while anticoagulated with warfarin transferre d to [facility] from [facility] for management of retroperitoneal bleed. [...] while anticoagulated with warfarin transferred to [facility] from [facility] for management of retroperitoneal bleed. [...] Hannah MD General Surgery Resident, R3 Pager [phone] [facility] & [place] [phone] [facility] [address] ich Redding MD - 04/24/2014 9:21 AM [...] extubate Initial surgical contact: Miladis at pager [phone] Nithya Andres MD - 04/24/2014 5:25 AM [...] at referring hospital. IR embolization at [facility]. Hospital Day #1 ICU Day #2 [...] Call team 01/11 for questions: Team Pager [phone] Angeles Acevedo MD - 04/24/2014 2:04 AM PST [facility] DEPARTMENT OF SURGERY EGS Consult Progress Note Division of Trauma and Critical Care ID: Mackenzie Hartley is a 58 year old female with COPD, Crohn's disease, chronic pain, and 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 while anticoagulated with warfarin transferre d to [facility] from [facility] for management of retroperitoneal bleed. [...] while anticoagulated with warfarin transferred to [facility] from [facility] for management of retroperitoneal bleed. [...] Hannah MD General Surgery Resident, R3 Pager [phone] [facility] [place] [address] [place] [place] [address] Rudy Parker M D - 04/23/2014 5:07 PM PSTBRIEF INTERVENTIONAL RADIOLOGY PROCEDURE NOTE DATE: 04/23/2014 5:07 PM PROCEDURE: Pelvic angiography with glue embolization PRE-PROCEDURE DIAGNOSIS: Retroperitoneal hematoma POST-PROCEDURE DIAGNOSIS: Same IR STAFF: Lenny IR FELLOW: Ciera ACCESS: L GORE MAKER MEDICATIONS: Fentanyl IV 150 mcg Midazolam IV [...] + + + + + | [facility] | [address] | [place] [address] | | | SERVICESJANELL | [address] [...] - MAR[facility] | [address] | [place], [place] | | | [facility] CARE | [facility] | [address] | | | TESTS | | | [...] [facility] | [address] | [place] [address] | | | SERVICES, CORE | PARK [...] [facility] | [address] | [place] [address] | | | SERVICES, CORE | PARK [...] | | | LABORATORY | | | [facility] | | | SERVICES, | | | [...] + + | [facility] | [address] [facility] | [place] [address] | | | ARON, JANELL | [address] [...] [facility] | [address] | [place], [place] | | | [facility] | [address] | [address] | | | TESTS | | | [...] MARGOP[facility] | [address] | [place], [place] | | | [facility] | [address] | [address] | | | TESTS | | | [...] + + + + + | [facility] | [address] | [place] [address] | | | SERVICES, CORE | PARK [...] | 1.8 - 2.5 mg/dL | [facility] | | | LASMA | | [...] + + | [facility] | [address] [facility] | [place] [address] | | | SERVICES, CORE | KRISTEN [...] | | | LABORATORY | | | [facility] | | | SERVICES, | | | [...] MDRD equation recommended by the | [facility] | | National Kidney Disease Education [...] + + + + + | [facility] | [address] | [place] [address] | | | AORN, JANELL | [address] | | | [...] [facility] | [address] | [place] [address] | | | SERVICES, JANELL | KRISTEN [...] - [facility] | [address] | [place], [place] | | | [facility] | [address] | [address] | | | TESTS | | | [...] + + + | [facility] | [address] | [place], [place] | | | [facility] | [address] | [address] | | | TESTS | | | [...] [facility] | [address] | [place] [address] | | | SERVICES, CORE | PARK [...] [facility] | [address] | [place] [address] | | | SERVICES, CORE | KRISTEN [...] | | | LABORATORY | | | [facility] | | | SERVICES, | | | [...] MDRD equation recommended by the | [facility] | | National Kidney Disease Education [...] + + + + + | [facility] | [address] | [place] [address] | | | SERVICES, CORE | PARK [...] (H) | 0.90 - 1.20 INR | [facility] | | | | | | LABORATORY [...] + + + + + | [facility] | [address] | [place] [address] | | | JANELL SHARP | KRISTEN [...] | 60 - 99 mg/dL | [facility] - | | | GLUCOSE, | [...] SANDERS | [address] | [place], [place] | | | [facility] CARE | [address] | [address] | | | TESTS | | | [...] MARILYN | [address] | [place], [place] | | | KAILEY MOORE | [facility] | [address] | | | TESTS | | | [...] | + +---------+ + + | [facility] DEPARTMENT OF | | | | [...] MARILYN | [address] | [place], [place] | | | [place] [facility] OF [place] | [facility] | [address] | | | TESTS | | | [...] | 60 - 99 mg/dL | [facility] - | | | GLUCOSE, | [...] SANDERS | [address] | [place], [place] | | | [facility] CARE | [address] | [address] | | | TESTS | | | [...] + + + + + | [facility] | [address] | [place] [address] | | | SERVICES, CORE | PARK [...] + + | [facility] | [address] [facility] | [place] [address] | | | SERVICES, CORE | KRISTEN [...] | | | LABORATORY | | | [facility] | | | SERVICES, | | | [...] MDRD equation recommended by the | [facility] | | National Kidney Disease Education [...] + + + + + | [facility] | [address] | [place] [address] | | | SERVICES, CORE | PARK [...] | 0.90 - 1.20 INR | [facility] | | | | | | [...] + + + + + | [facility] | [address] | [place] [address] | | | SERVICES, CORE | PARK [...] MARQU[facility] | [address] | [place], [place] | | | [facility] CARE | [address] | [address] | | | TESTS | | | [...] SANDERS | [address] | [place], [place] | | | [facility] POINT [facility] CARE | [address] | [address] | | | TESTS | | | [...] MARQU[facility] | [address] | [place], [place] | | | [facility] CARE | [address] | [address] | | | TESTS | | | [...] [facility] | [address] | [place] [address] | | | ARON, JANELL | PARK [...] [facility] | [address] | [place] [address] | | | SERVICES, CORE [...] | | | LABORATORY | | | [facility] | | | SERVICES, | | | [...] [facility] | [address] | [place] [address] | | | SERVICES, CORE | PARK [...] [facility] | [address] | [place] [address] | | | SERVICES, CORE | KRISTEN [...] MARQU[facility] | [address] | [place], [place] | | | [facility] OF [place] | [facility] | [address] | | | TESTS | | | [...] SANDERS | [address] | [place], [place] | | | [facility] | [address] | [address] | | | TESTS | | | [...] [facility] | [address] | [place] [address] | | | SERVICES, CORE | PARK [...] [facility] | [address] | [place] [address] | | | SERVICES, CORE | PARK [...] | | | LABORATORY | | | [facility] | | | SERVICES, | | | [...] [facility] | [address] | [place] [address] | | | SERVICES, JANELL | KRISTEN [...] + + + + + | [facility] | [address] [facility] | [place] [address] | | | SERVICES, JANELL | KRISTEN [...] MARQU[facility] | [address] | [place], [place] | | | [facility] | [address] | [address] | | | TESTS | | | [...] [facility] | [address] | [place], [place] | | | [facility] | [address] | [address] | | | TESTS | | | [...] + + + + + | [facility] | [address] | [place] [address] | | | SERVICES, CORE | [address] | | | + + + + + MAGNESIUM, PLASMA (05/07/2014 3:15 AM PST) + +---------+ + + + | Component | Value | Ref Range | Performed | Pathologist | | | | | At | Signature | + +---------+ + + + | MAGNESIUM,P | 1.6 (L) | 1.8 - 2.5 mg/dL | [facility] | | | JFMA | | | [...] + + | [facility] | [address] [facility] | [place] [address] | | | SERVICES, CORE | KRISTEN [...] | | | LABORATORY | | | [facility] | | | SERVICES, | | | [...] the MDRD equation recommended by the | [facility] | | National Kidney Disease Education Program. [...] + + + + + | [facility] | [address] | [place] [address] | | | ARON, JANELL | KRISTEN [...] + + + | [facility] | [address] | [place] [address] | | | SERVICES, JANELL | KRISTEN [...] - MARILYN | [address] | [place], [place] | | | [facility] | [address] | [address] | | | TESTS | | | [...] [facility] | [address] | [place] [address] | | | SERVICES, CORE | KRISTEN [...] [facility] | [address] | [place], [place] | | | [facility]ARE | [address] | [address] | | | TESTS | | | [...] [facility] | [address] | [place], [place] | | | [facility] | [address] | [address] | | | TESTS | | | [...] [facility] | [address] | [place] [address] | | | SERVICES, CORE | PARK [...] [facility] | [address] | [place] [address] | | | SERVICES, CORE | PARK [...] | | | LABORATORY | | | [facility] | | | SERVICES, | | | [...] + + | [facility] | [address] [facility] | [place] [address] | | | SERVICES, JANELL | KRISTEN [...] + + + + + | [facility] | [address] [facility] | [place] [address] | | | ARON, JANELL | KRISTEN [...] [facility] | [address] | [place] [address] | | | SERVICES, CORE | KRISTEN [...] | + + + + + | [facility] | [address] | [place] [address] | | | SERVICES, CORE | PARK [...] + + | [facility] | [address] [facility] | [place] [address] | | | SERVICES, CORE | KRISTEN [...] | | | LABORATORY | | | [facility] | | | SERVICES, | | | [...] MDRD equation recommended by the | [facility] | | National Kidney Disease Education [...] + + + + + | [facility] | [address] | [place] [address] | | | SERVICES, CORE | PARK [...] [facility] | [address] | [place] [address] | | | SERVICES, JANELL | KRISTEN [...] + + + + | [facility] | [address] | [place], [place] | | | [facility] | [address] | [address] | | + + + + + [...] [facility] | [address] | [place] [address] | | | SERVICES, CORE | KRISTEN [...] [facility] | [address] | [place] [address] | | | SERVICES, CORE | KRISTEN [...] [facility] | [address] | [place] [address] | | | SERVICES, CORE | PARK [...] + + | [facility] | [address] [facility] | [place] [address] | | | SERVICES, CORE | KRISTEN [...] | | | LABORATORY | | | [facility] | | | SERVICES, | | | [...] [facility] | [address] | [place] [address] | | | SERVICES, CORE | KRISTEN [...] (H) | 0.90 - 1.20 INR | [facility] | | | | | | LABORATORY [...] [facility] | [address] | [place] [address] | | | SERVICES, CORE | KRISTEN [...] [facility] | [address] | [place] [address] | | | SERVICES, JANELL | KRISTEN [...] [facility] | [address] | [place] [address] | | | SERVICES, CORE | PARK [...] [facility] | [address] | [place] [address] | | | SERVICES, CORE [...] + + + + + | [facility] | [address] | [place] [address] | | | ARON, JANELL | KRISTEN [...] | 60 - 99 mg/dL | [facility] - | | | GLUCOSE, | [...] [facility] | [address] | [place], [place] | | | [place] [place] OF [place] | [facility] | [address] | | | TESTS | | | [...] | + +---------+ + + | [facility] DEPARTMENT OF | | | | [...] | [address] [facility] | [place] [address] | | | SERVICES, CORE | PARK [...] [facility] | [address] | [place] [address] | | | SERVICES, CORE | KRISTEN [...] | | | LABORATORY | | | [facility] | | | SERVICES, | | | [...] + + + + + | [facility] | [address] | [place] [address] | | | SERVICES, CORE | PARK [...] + + + + + | [facility] | [address] | [place] [address] | | | SERVICES, CORE | PARK [...] [facility] | [address] | [place] [address] | | | SERVICES, CORE | KRISTEN [...] | | | LABORATORY | | | [facility] | | | SERVICES, | | | [...] the MDRD equation recommended by the | [facility] | | National Kidney Disease Education Program. [...] + + + + + | [facility] | [address] | [place] [address] | | | ARON, JANELL | KRISTEN [...] | | | LABORATORY | | | [facility] | | | SERVICES, | | | [...] [facility] | [address] | [place] [address] | | | SERVICES, CORE | KRISTEN [...] [facility] | [address] | [place], [place] | | | THERAPY | [address] | [address] | | + + + + + [...] RESPIRATORY | [address] | [place], [place] | | | THERAPY | [address] | [address] | | + + + + + [...] | + + + + + | [facility] | [address] | [place] [address] | | | SERVICES, CORE | KRISTEN [...] | [address] [facility] | [place] [address] | | | SERVICES, CORE | PARK [...] [facility] | [address] | [place] [address] | | | SERVICES, CORE | KRISTEN [...] | | | LABORATORY | | | [facility] | | | SERVICES, | | | [...] [facility] | [address] | [place] [address] | | | SERVICES, CORE | PARK [...] [facility] | [address] | [place] [address] | | | SERVICES, CORE | KRISTEN [...] DEPT OF | [address] | [place], [place] | | | CARDIOLOGY | [address] | [address] | | + + + + + X-RAY PORTABLE CHEST 1 VIEW (05/02/2014 2:11 AM PST) + + + + + + | Component | Value | Ref Range | Performed | Pathologist | | | | | At | Signature | + + + + + + | X-RAY | EXAM: MN CHEST 1 VIEW | | | | [...] | + +---------+ + + | [facility] DEPARTMENT OF | | | | [...] + + + + + | [facility] | [address] | [place] [address] | | | JANELL SHARP | KRISTEN [...] | 60 - 99 mg/dL | [facility] - | | | GLUCOSE, | [...] [facility] | [address] | [place], [place] | | | [facility]AR POINT OF CARE | [address] | [address] | | | TESTS | | | [...] [facility] | [address] | [place], [place] | | | [facility] [place] | [address] | [address] | | | TESTS | | | [...] [facility] | [address] | [place] [address] | | | SERVICES, CORE | [address] | | | + + + + + X-RAY PORTABLE CHEST 1 VIEW (05/01/2014 3:37 AM PST) + + + + + + | Component | Value | Ref Range | Performed | Pathologist | | | | | At | Signature | + + + + + + | X-RAY | EXAM: MN CHEST 1 VIEW | | | | [...] Bilateral | | | | | | [id number]-li-[id number] | | | | | | pleural [...] LABORATORY | [address] | [place] [address] | | | SERVICES, CORE | [address] | | | + + + + + MAGNESIUM, PLASMA (05/01/2014 2:45 AM PST) + +-------+ + + + | Component | Value | Ref Range | Performed | Pathologist | | | | | At | Signature | + +-------+ + + + | MAGNESIUM,P | 1.9 | 1.8 - 2.5 mg/dL | [facility] | | | LASMA | | | [...] [facility] | [address] | [place] [address] | | | SERVICES, CORE | KRISTEN [...] | | | LABORATORY | | | [facility] | | | SERVICES, | | | [...] + + + + + | [facility] | [address] [facility] | [place] [address] | | | JANELL SHARP | KRISTEN [...] + + + + + | [facility] | [address] [facility] | [place] [address] | | | SERVICES, JANELL | KRISTEN [...] + + | [facility] | [address] [address] | [place], [place] | | | [facility] CARE | [address] | [address] | | | TESTS | | | [...] | + +---------+ + + | [facility] DEPARTMENT OF | | | | [...] | + +---------+ + + | [facility] DEPARTMENT OF | | | | | RADIOLOGY | | | | + +---------+ + + X-RAY PORTABLE CHEST 1 VIEW (04/30/2014 9:22 AM PST) + + + + + + | Component | Value | Ref Range | Performed | Pathologist | | | | | At | Signature | + + + + + + | X-RAY | STUDY: MN CHEST 1 VIEW | | | | [...] | + +---------+ + + | [facility] DEPARTMENT OF | | | | [...] | + + + + + | [facility] | [address] | [place] [address] | | | SERVICES, CORE | PARK [...] [facility] | [address] | [place] [address] | | | SERVICES, CORE | KRISTEN [...] + + + + + | [facility] | [address] | [place] [address] | | | ARON, JANELL | KRISTEN [...] | | | LABORATORY | | | [facility] | | | SERVICES, | | | [...] [facility] | [address] | [place] [address] | | | SERVICES, CORE | PARK [...] | | | LABORATORY | | | [facility] | | | SERVICES, | | | [...] + + + + + | [facility] | [address] | [place] [address] | | | SERVICES, JANELL | KRISTEN [...] [facility] | [address] | [place], [place] | | | [facility] POINT OF CARE | [facility] | [address] | | | TESTS | | | [...] [facility] | [address] | [place] [address] | | | JANELL SHARP | KRISTEN [...] [facility] | [address] | [place] [address] | | | SERVICES, CORE | PARK [...] | | | LABORATORY | | | [facility] | | | SERVICES, | | | [...] [facility] | [address] | [place] [address] | | | SERVICES, CORE | KRISTEN [...] [facility] | [address] | [place] [address] | | | SERVICES, CORE | KRISTEN [...] [facility] | [address] | [place] [address] | | | JANLEL SHARP | [address] | | | [...] | 60 - 99 mg/dL | [facility] - | | | GLUCOSE, | [...] [facility] | [address] | [place], [place] | | | [facility] | [address] | [address] | | | TESTS | | | [...] [facility] | [address] | [place] [address] | | | SERVICES, CORE | [address] | | | + + + + + INR (04/28/2014 8:00 AM PST) + +-------+ + + + | Component | Value | Ref Range | Performed | Pathologist | | | | | At | Signature | + +-------+ + + + | INR | 1.03 | 0.90 - 1.20 INR | [facility] | | | | | | LABORATORY [...] | [address] [facility] | [place] [address] | | | SERVICES, CORE | PARK [...] [facility] | [address] | [place] [address] | | | SERVICES, CORE | KRISTEN [...] [facility] | [address] | [place] [address] | | | SERVICES, CORE | PARK [...] | | | LABORATORY | | | [facility] | | | SERVICES, | | | [...] + + + | [facility] | [address] | [place] [address] | | | SERVICES, CORE | KRISTEN [...] + + + | [facility] | [address] | [place] [address] | | | SERVICES, JANELL | KRISTEN [...] + + + + + | [facility] | [address] [facility] | [place] [address] | | | SERVICES, JANELL | KRISTEN [...] | + +---------+ + + | [facility] DEPARTMENT OF | | | | [...] [facility] | [address] | [place] [address] | | | SERVICES, CORE | KRISTEN [...] [facility] | [address] | [place], [place] | | | [facility] | [facility] | [address] | | | TESTS | | | | + + + + + X-RAY ABD LTD FEEDING TUBE EVAL PORTABLE (04/27/2014 10:33 AM PST) + + + + + + | Component | Value | Ref Range | Performed | Pathologist | | | | | At | Signature | + + + + + + | X-RAY ABD | STUDY: MN SAI [facility]TD | | | | | [...] + + | [facility] | [address] [facility] | [place] [address] | | | ARON, JANELL | KRISTEN [...] [facility] | [address] | [place] [address] | | | SERVICES, CORE | KRISTEN [...] | + + + + + | [facility] | [address] | [place] [address] | | | SERVICES, CORE | KRISTEN [...] [facility] | [address] | [place] [address] | | | SERVICES, CORE | PARK [...] | | | LABORATORY | | | [facility] | | | SERVICES, | | | [...] + + | [facility] | [address] | [place] [address] | | | SERVICES, CORE | KRISTEN [...] [facility] | [address] | [place] [address] | | | SERVICES, CORE | PARK [...] + + | [facility] | [address] | [place] [address] | | | SERVICES, CORE | KRISTEN [...] [facility] | [address] | [place] [address] | | | SERVICES, CORE | PARK [...] + + + + + | [facility] | [address] | [place] [address] | | | SERVICES, CORE | PARK [...] [facility] | [address] | [place] [address] | | | SERVICES, CORE | PARK [...] | | | LABORATORY | | | [facility] | | | SERVICES, | | | [...] | + + + + + | [facility] | [address] | [place] [address] | | | SERVICES, CORE | KRISTEN [...] PRIMARY | | | | | | RECREATION MANAGER: Rudy | | | | | [...] [facility] | [address] | [place], [place] | | | [facility] | [address] | [address] | | | TESTS | | | [...] | + +---------+ + + | [facility] DEPARTMENT OF | | | | [...] [facility] | [address] | [place] [address] | | | SERVICES, CORE | KRISTEN [...] [facility] | [address] | [place] [address] | | | SERVICES, CORE | KRISTEN [...] [facility] | [address] | [place] [address] | | | SERVICES, CORE | KRISTEN [...] [facility] | [address] | [place] [address] | | | SERVICES, JANELL | KRISTEN [...] + + + + + | [facility] | [address] | [place] [address] | | | SERVICES, JANELL | KRISTEN [...] [facility] | [address] | [place] [address] | | | SERVICES, CORE | KRISTEN [...] | | | LABORATORY | | | [facility] | | | SERVICES, | | | [...] + + + + + | [facility] | [address] | [place] [address] | | | JANELL SHARP | KRISTEN [...] [facility] | [address] | [place] [address] | | | SERVICES, CORE | PARK [...] + + + + + | [facility] | [address] | [place] [address] | | | SERVICES, CORE | KRISTEN [...] | 60 - 99 mg/dL | [facility] - | | | GLUCOSE, | [...] [facility] | [address] | [place], [place] | | | [facility] | [address] | [address] | | | TESTS | | | [...] | | | LABORATORY | | | [facility] | | | SERVICES, | | | [...] MDRD equation recommended by the | [facility] | | National Kidney Disease Education [...] + + + + + | [facility] | [address] | [place] [address] | | | JANELL SHARP | KRISTEN [...] | 60 - 99 mg/dL | [facility] - | | | GLUCOSE, | [...] [facility] | [address] | [place], [place] | | | OSCAR POINT OF CARE | [address] | [address] | | | TESTS | | | [...] [facility] | [address] | [place] [address] | | | SERVICES, CORE | KRISTEN [...] + + + + + | [facility] | [address] | [place] [address] | | | JANELL SHARP | KRISTEN [...] + + + + | PRODUCT | [id number] | | [facility] | | | UNIT [...] + + + + | BLOOD | [id number] | | [facility] | | | PRODUCT [...] DEPARTMENT OF | [address] | [place] [address] | | | PATHOLOGY | [address] [...] + + + + | PRODUCT | [id number] | | [facility] | | | UNIT [...] + + + + | BLOOD | [id number] | | [facility] | | | PRODUCT [...] + + + + + | [facility] DEPARTMENT OF | [address] | [place] [address] | | | PATHOLOGY | [address] [...] [facility] | [address] | [place] [address] | | | SERVICES, CORE | PARK [...] + + + + + | [facility] | [address] | [place] [address] | | | SERVICES, CORE | PARK [...] | | | LABORATORY | | | [facility] | | | SERVICES, | | | [...] [facility] | [address] | [place] [address] | | | SERVICES, CORE | PARK [...] [facility] | [address] | [place] [address] | | | SERVICES, CORE | KRISTEN [...] + + | [facility] | [address] [facility] | [place] [address] | | | SERVICES, CORE | PARK [...] [facility] | [address] | [place] [address] | | | SERVICES, CORE | PARK [...] + + + + + | [facility] | [address] | [place] [address] | | | SERVICES, CORE | KRISTEN [...] (H) | 60 - 99 mg/dL | [facility] - | | | GLUCOSE, | | [...] [facility] | [address] | [place], [place] | | | [facility] | [address] | [address] | | | TESTS | | | [...] [facility] | [address] | [place], [place] | | | [facility] CARE | [address] | [address] | | | TESTS | | | [...] [facility] | [address] | [place] [address] | | | SERVICES, CORE | KRISTEN [...] [facility] | [address] | [place] [address] | | | SERVICES, CORE | KRISTEN [...] | + +---------+ + + | [facility] DEPARTMENT OF | | | | [...] [facility] | [address] | [place] [address] | | | SERVICES, CORE | PARK [...] [facility] | [address] | [place] [address] | | | SERVICES, CORE | [address] | | | + + + + + X-RAY PORTABLE CHEST 1 VIEW (04/24/2014 5:32 AM PST) + + + + + + | Component | Value | Ref Range | Performed | Pathologist | | | | | At | Signature | + + + + + + | X-RAY | STUDY: MN CHEST 1 VIEW | | | | [...] [facility] | [address] | [place] [address] | | | SERVICES, CORE | PARK [...] | | | LABORATORY | | | [facility] | | | SERVICES, | | | [...] + + + + + | [facility] | [address] | [place] [address] | | | SERVICES, JANELL | KRISTEN GRATN | | | + + + + [...] [facility] | [address] | [place] [address] | | | SERVICES, CORE | PARK [...] [facility] | [address] | [place] [address] | | | SERVICES, JANELL | KRISTEN [...] [facility] | [address] | [place], [place] | | | THERAPY | [address] | [address] | | + + + + + [...] [facility] | [address] | [place], [place] | | | THERAPY | [address] | [address] | | + + + + + [...] | | | LABORATORY | | | [facility] | | | SERVICES, | | | [...] [facility] | [address] | [place] [address] | | | SERVICES, CORE | KRISTEN [...] + + + + + | [facility] | [address] | [place] [address] | | | JANELL SHARP | KRISTEN [...] + + + + + | [facility] | [address] | [place] [address] | | | SERVICES, CORE | PARK [...] [facility] | [address] | [place] [address] | | | SERVICES, CORE | PARK [...] [facility] | [address] | [place] [address] | | | SERVICES, CORE | PARK [...] [facility] | [address] | [place] [address] | | | ARON, JANELL | KRISTEN [...] + + | [facility] | [address] [facility] | [place] [address] | | | SERVICES, CORE | KRISTEN [...] | | | LABORATORY | | | [facility] | | | SERVICES, | | | [...] MDRD equation recommended by the | [facility] | | National Kidney Disease Education [...] + + + + + | [facility] | [address] | [place] [address] | | | SERVICES, CORE | PARK [...] [facility] | [address] | [place] [address] | | | SERVICES, CORE | PARK [...] [facility] | [address] | [place], [place] | | | [facility]ARE | [address] | [address] | | | TESTS | | | [...] PRIMARY | | | | | | RECREATION MANAGER: Rudy | | | | | [...] 5 | | | | | | Prydeinig vascular sheath | | | | | [...] | | | | for a 5 Prydeinig | | | | | | IMAcatheter. [...] | | | | artery. A 3 Prydeinig | | | | | | microcatheterwas [...] DEPT OF | [address] | [place], [place] | | | CARDIOLOGY | [address] | [address] | | + + + + + [...] + + + + | PRODUCT | [id number] | | [facility] | | | UNIT [...] + + + + | BLOOD | [id number] | | [facility] | | | PRODUCT [...] DEPARTMENT OF | [address] | [place] [address] | | | PATHOLOGY | [address] [...] + + + + | PRODUCT | [id number] | | [facility] | | | UNIT [...] + + + + | BLOOD | [id number] | | [facility] | | | PRODUCT [...] DEPARTMENT OF | [address] | [place] [address] | | | PATHOLOGY | [address] [...] + + + + | PRODUCT | [id number] | | [facility] | | | UNIT [...] + + + + | BLOOD | [id number] | | [facility] | | | PRODUCT [...] DEPARTMENT OF | [address] | [place], [place] [address] | | | PATHOLOGY | [address] [...] + + + + | PRODUCT | [id number] | | [facility] | | | UNIT [...] + + + + | BLOOD | [id number] | | [facility] | | | PRODUCT [...] DEPARTMENT OF | [address] | [place] [address] | | | PATHOLOGY | [address] [...] + + + + | PRODUCT | [id number] | | [facility] | | | UNIT [...] + + + + | BLOOD | [id number] | | [facility] | | | PRODUCT [...] | [address] | [place] [address] | | | PATHOLOGY | [address] [...] + + + + | PRODUCT | [id number] | | [facility] | | | UNIT [...] + + + + | BLOOD | [id number] | | [facility] | | | PRODUCT [...] | [facility] | [address] | [place] [address] | | | PATHOLOGY | [address] | | | + + + + + X-RAY PORTABLE CHEST 1 VIEW (04/23/2014 11:41 AM PST) + + + + + + | Component | Value | Ref Range | Performed | Pathologist | | | | | At | Signature | + + + + + + | X-RAY | EXAM: MN CHEST 1 VIEW | | | | [...] + + + + | PRODUCT | [id number] | | [facility] | | | UNIT [...] + + + + | BLOOD | [id number] | | [facility] | | | PRODUCT [...] DEPARTMENT OF | [address] | [place] [address] | | | PATHOLOGY | [address] [...] + + + + | PRODUCT | [id number] | | [facility] | | | UNIT [...] + + + + | BLOOD | [id number] | | [facility] | | | PRODUCT [...] + + + + + | [facility] DEPARTMENT | [address] | [place] [address] | | | PATHOLOGY | [address] [...] + + + + | PRODUCT | [id number] | | [facility] | | | UNIT [...] + + + + | BLOOD | [id number] | | [facility] | | | PRODUCT [...] DEPARTMENT OF | [address] | [place] [address] | | | PATHOLOGY | [address] [...] + + + + | PRODUCT | [id number] | | [facility] | | | UNIT [...] + + + + | BLOOD | [id number] | | [facility] | | | PRODUCT [...] [facility] | [address] | [place] [address] | | | PATHOLOGY | [address] [...] + + + + | PRODUCT | [id number] | | [facility] | | | UNIT [...] + + + + | BLOOD | [id number] | | [facility] | | | PRODUCT [...] DEPARTMENT OF | [address] | [place] [address] | | | PATHOLOGY | [address] [...] + + + + | PRODUCT | [id number] | | [facility] | | | UNIT [...] + + + + | BLOOD | [id number] | | [facility] | | | PRODUCT [...] [facility] | [address] | [place] [address] | | | PATHOLOGY | [address] [...] + + + + | PRODUCT | [id number] | | [facility] | | | UNIT [...] + + + + | BLOOD | [id number] | | [facility] | | | PRODUCT [...] DEPARTMENT OF | [address] | [place], [place] [address] | | | PATHOLOGY | [address] [...] + + + + | PRODUCT | [id number] | | [facility] | | | UNIT [...] + + + + | BLOOD | [id number] | | [facility] | | | PRODUCT [...] + + + + + | [facility] DEPARTMENT | [address] | [place] [address] | | | PATHOLOGY | [address] [...] + + + + | PRODUCT | [id number] | | [facility] | | | UNIT [...] + + + + | BLOOD | [id number] | | [facility] | | | PRODUCT [...] DEPARTMENT OF | [address] | [place] [address] | | | PATHOLOGY | [address] [...] + + + + | PRODUCT | [id number] | | [facility] | | | UNIT [...] + + + + | BLOOD | [id number] | | [facility] | | | PRODUCT [...] [facility] | [address] | [place] [address] | | | PATHOLOGY | [address] [...] + + + + | PRODUCT | [id number] | | [facility] | | | UNIT [...] + + + + | BLOOD | [id number] | | [facility] | | | PRODUCT [...] DEPARTMENT OF | [address] | [place] [address] | | | PATHOLOGY | [address] [...] + + + + | PRODUCT | [id number] | | [facility] | | | UNIT [...] + + + + | BLOOD | [id number] | | [facility] | | | PRODUCT [...] [facility] | [address] | [place] [address] | | | PATHOLOGY | [address] [...] + + + + | PRODUCT | [id number] | | [facility] | | | UNIT [...] + + + + | BLOOD | [id number] | | [facility] | | | PRODUCT [...] DEPARTMENT OF | [address] | [place] [address] | | | PATHOLOGY | [address] [...] + + + + | PRODUCT | [id number] | | [facility] | | | UNIT [...] + + + + | BLOOD | [id number] | | [facility] | | | PRODUCT [...] [facility] | [address] | [place] [address] | | | PATHOLOGY | [address] [...] [facility] | [address] | [place] [address] | | | SERVICES, CORE | PARK [...] [facility] | [address] | [place] [address] | | | SERVICES, CORE | P[address] [...] + + | [facility] | [address] [facility] | [place] [address] | | | [facility], CORE | [address] | | | + + + [...] | | | LABORATORY | | | [facility] | | | SERVICES, | | | [...] [facility] | [address] | [place] [address] | | | SERVICES, JANELL | PARK [...] [facility] | [address] | [place] [address] | | | SERVICES, CORE | PARK [...] [facility] | [address] | [place] [address] | | | SERVICES, CORE | PARK [...] | + + + + + | [facility] | [address] | [place] [address] | | | ARON, JANELL | KRISTEN [...] | 60 - 99 mg/dL | [facility] - | | | GLUCOSE, | [...] [facility] | [address] | [place], [place] | | | [facility] | [address] | [address] | | | TESTS | | | [...] [facility] | [address] | [place] [address] | | | SERVICES, | [address] [...] [facility] | [address] | [place] [address] | | | SERVICES, | [address] [...] + + + + | PRODUCT | [id number] | | [facility] | | | UNIT [...] + + + + | BLOOD | [id number] | | [facility] | | | PRODUCT [...] [facility] | [address] | [place] [address] | | | PATHOLOGY | [address] [...] + + + + | PRODUCT | [id number] | | [facility] | | | UNIT [...] + + + + | BLOOD | [id number] | | [facility] | | | PRODUCT [...] DEPARTMENT OF | [address] | [place] [address] | | | PATHOLOGY | [address] [...] + + + + | PRODUCT | [id number] | | [facility] | | | UNIT [...] + + + + | BLOOD | [id number] | | [facility] | | | PRODUCT [...] [facility] | [address] | [place] [address] | | | PATHOLOGY | [address] [...] + + + + | PRODUCT | [id number] | | [facility] | | | UNIT [...] + + + + | BLOOD | [id number] | | [facility] | | | PRODUCT [...] DEPARTMENT OF | [address] | [place] [address] | | | PATHOLOGY | [address] [...] + + + + | PRODUCT | [id number] | | [facility] | | | UNIT [...] + + + + | BLOOD | [id number] | | [facility] | | | PRODUCT [...] [facility] | [address] | [place] [address] | | | PATHOLOGY | [address] [...] + + + + | PRODUCT | [id number] | | [facility] | | | UNIT [...] + + + + | BLOOD | [id number] | | [facility] | | | PRODUCT [...] [facility] | [address] | [place] [address] | | | PATHOLOGY | [address] [...]
--- OUTSIDE RECORDS SUMMARY | ~2019-11-05 | XMS | Clinical Summary ---
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 colombian 04/21/2014 | 04/22/2014 | + + + [...] +--------+ +---------+--------+ | MEDICARE | MEDICA | [id number] | 04/11/19 | [phone] | | Medica | | | RE | | 13-Pre | 5 | | re | | | PART A | | sent | | | | | | AND B | | | | | | + +--------+ +--------+ +---------+--------+ | MEDICARE | MEDICA | [id number] | 04/11/19 | [phone] | | Medica | | | RE | | 13-Pre | 5 | | re | | | PART A | | sent | | | | | | AND B | | | | | | + +--------+ +--------+ +---------+--------+ | AARP | AARP | [id number] | 04/11/19 | [phone] | | Indemn [...] [place] | | | 8 (Home) | [address] | + +--------+ +--------+ + + | Smita Willingham | Person | Self | [birth year] | [address] | | | al/Fam | | 1956 | [phone] | [place], [place] | | | bianca | | | 8 (Home) | [address] | + +--------+ +--------+ + + Advance Directives + + + + + | Type | Date Recorded | Patient | 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
--- OUTSIDE RECORDS SUMMARY | ~2019-11-05 | XMS | Encounter Summary ---
Demographics + + + | Address | [address] | | | [place] [address] | + + + | Home Phone [...] [place], [place] | | | | | [address] | | + + + + + | Cami Sawyer | ECON | Unknown | | + + + + + Care Team Providers + +------+ + | Care [place] Boat Pilot Name | Role | Phone | + [...] | 2014 | Event | [facility] | [address] | | | | | [facility] | [facility] | | | | | Hospital Admitting | [place] [address] | | | | | Desk Located on the | [phone] | | | | | 9th floor | | | | | | [place], [place] | Rajiv Willingham MD | | | | | [address] | [facility] | | | | | | [facility] [address] [place] | | | | | | [facility] | | | | | | [place] [address] | | | | | | [phone] | | | | | | | [...] Yes; Hands Free; No; Right; | | aHydee Enrique RN | | [facility] | Jugular [...] by | | D - | "port"); [facility]; 01/27/17 | Alberto London RN | Discontinued After | | [facility] | (Automatic cleanup per RA | | Discharge | | l Line | 3006--contact admin for | | | | | questions.); 1622 (Automatic | | | | | cleanup per RA 3006--contact | | | | | admin for questions.); Yes; Other | | | | | (comment) ([facility]); No; Left; | | | | [...]
--- OUTSIDE RECORDS SUMMARY | ~2019-11-05 | XMS | Encounter Summary ---
Demographics + + + | Address | [address] | | | [place] [address] | + + + | Home Phone [...] Team Providers + +------+ + | Care Sap Bw Developer Name | Role | Phone | + +------+ + PCP | Unavailable | + +------+ + Encounter Details +--------+ + + + + | Date | Type | Department | Care Team | Description | +--------+ + + + + | 03/07/ | Hospital | [facility] | SahraCynthiaay Nena, | Rectovaginal | | 2017 - | Encounter | [facility] [address] | MD Gaby LOREDO | fistula; Crohn's | | | | [address] | [address] | disease of large | | 03/12/ | | [place], [place] | [place] [address] | intestine with | | 2017 | | [address] | [phone] | complication (HCC) | | | | [phone] | | | +--------+ + + + [...] Date of Service: 03/12/17 0746 Status: Signed Core Driller: JENARO Mathew (Nurse Practitioner) [facility] Service: Colon & Rectal Surgery Discharge [...] Humirabeing seen by Dr. She CLAYTON in [place]. She previously underwent a small bowel resection [...] She was then recommended to go to [place] for a second opinio n. She never went to [place] due to the trip being a hardship [...] SETON PLACEMENT; Surgeon: Enrique Morris MD; Location: [facility] OR; Service: General; Laterality: N/A; APPENDECTOMY CHOLECYSTECTOMY COLOSTOMY N/A 03/07/2017 Procedure: COLOSTOMY; Surgeon: Enrique Morris MD; Location: [facility] OR; Service: G eneral; Laterality: N/A; ESOPHAGOGASTRODUODENOSCOPY Left 08/06/2015 Procedure: ESOPHAGOGASTRODUODENOSCOPY; Surgeon: Sheng Rios MD; Location: [facility] END[facility]COPY; Service: Gastroenterology; Laterality: Left; ESOPHAGOGASTRODUODENOSCOPY [...] Change midline dressing and ostomy appliance with ostomy/facilities assistant prior to discharge Discharge home Disposition: Home Condition: Stable Code Status: Full Code No discharge procedures on file. 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 onver roshan Transaction, Provider Unknown - 03/12/2017 6:19 AM PST Progress Notes by Lashawn Valdez RN at 03/12/17618 Author: Lashawn Valdez RN Service: (none) Author Type: Registered Nurse Filed: 03/12/17625 Date of Service: 03/12/17618 Status: Signed Core Driller: Lashawn Valdez RN (Registered Nurse) Patient is [...] Date of Service: 03/11/17 163 Status: Signed Core Driller: Catracho Almaguer RN (Registered Nurse) [facility] Service: Ostomy Care Consult Note Hospital [...] Notes by Brooke Hawkins RD at 03/11/17 5755 Author: Brooke Hawkins RD Service: (none) Author Type: Registered Dietitian Filed: 03/11/17 2680 Date of Service: 03/11/171449 Status: Signed Core Driller: Brooke Hawkins RD (Registered Dietitian) 03/11/17 1414 [...] Date of Service: 03/11/17 1306 Status: Signed Core Driller: Maryellen Salter RN (Registered Nurse) Discharge plan- patient will be able to return home with family when medically ready. SAL bennett de an ostomy appt for her on 03/16/17 at 0915. Information added to AVS. MARYELLEN SALTER RN Case Management [phone] onver roshan Transaction, Provider Unknown - 03/11/2017 12:28 PM PST Therapy Progress Note by Moses Pathak PTA at 03/11/17 1228 Author: Moses Pathak PTA Service: (none) Author Type: Radio Station Engineer Filed: 03/11/17 1232 Date of Service: 03/11/17 1228 Status: Signed Core Driller: Moses Pathak PTA (Radio Station Engineer) 03/11/17 1228 PT Last Visit PT Received [...] Date of Service: 03/11/17 1127 Status: Signed Core Driller: Dorina Jang () Referral from RN to [...] Date of Service: 03/11/17 1050 Status: Signed Core Driller: Catracho Almaguer RN (Registered Nurse) Ostomy nurse [...] 03/11/17947 Date of Service: 03/11/17944 Status: Signed Core Driller: Don Nava MD (Physician) [facility] Service: Hospitalist Progress Note Pt: Smita Willingham AGE/SEX: 61 y.o. female ROOM: [address] [place] [address] : 1955 PCP: No primary care provider [...] Intake/Output Summary (Last 24 hours) at 03/11/17 09 Last data filed at 03/11/17 0302 Gross [...] MD, FACP 03/11/2017 9:45 AM Dictation software, [employer], used which may contain error for similar sounding words even af ter review. Personal communication requested for any clarification. Portions of this chart may have been copied from previous notes for continuity of care purp ose Jordon Hauser ARNP - 03/11/2017 7:45 AM PST . Progress Notes by JENARO Mathew at 03/11/17 8940 Author: JENARO Mathew Service: General Surgery Author Type: Nurse Jennifer enciso Filed: 03/11/17 1348 Date of Service: 03/11/1786 Status: Signed Core Driller: JENARO Mathew (Nurse Practitioner) [facility] Service: Colon & Rectal Surgery Progress [...] Date of Service: 03/11/17 0100 Status: Signed Core Driller: Lashawn Valdez RN (Registered Nurse) Report given [...] Date of Service: 03/10/17 1520 Status: Signed Core Driller: Aniceto Chen PT (Physical Therapist) 03/10/17 1520 PT Last Visit PT Received On 03/10/17 Reason for Treatment Other (comment) (s/p end colostomy) Requires PT Follow Up Awaiting tx order Follow up PT Only? No Focus for Next Treatment Transfer Technique PT Eval/Reassessment Date 03/10/17 Assistance Required 1 person Head Of English Needed No Precautions Other Precautions new colostomy [...] Date of Service: 03/10/17 1520 Status: Signed Core Driller: Aniceto Chen PT (Physical Therapist) 03/10/17 1520 PT Last Visit PT Received On 03/10/17 Reason for Treatment Other (comment) (s/p end colostomy) Requires PT Follow Up Awaiting tx order Follow up PT Only? No Focus for Next Treatment Transfer Technique PT Eval/Reassessment Date 03/10/17 Assistance Required 1 person Head Of English Needed No Home Environment Type of Home Home one story Home Exterior Layout 1-3 steps (1 entry step) Home Equipment Walker front wheeled Prior Function Level of [place] Independent with functional mobility;Independent with ADLs Falls in Past Year No Lives With Spouse Employment Retired for age Comments pt is a 61 y/o female s/p lysis of adhesions and end colostomy. She lives in [facility] with her spouse in a single [...] Note by Catracho Almaguer RN at 03/10/17 9393 Author: Catracho Almaguer RN Service: Wound/Ostomy Care Author Type: Registered Nurse Filed: 03/10/171316 Date of Service: 03/10/171312 Status: Signed Core Driller: Catracho Almaguer RN (Registered Nurse) Ostomy nurse [...] Author: LEVI Borrego Service: (none) Author Type: Water Commissioner Filed: 03/10/171312 Date of Service: 03/10/171311 Status: Signed Core Driller: LEVI Borrego (Water Commissioner) Discharge planning: Pt return home with outpt ostomy care. CM entered sticky note for Dr to sign referrral. Don Caraballo MD - 03/10/2017 10:41 AM PST Progress Notes by Don Nava MD at 03/10/17 1041 Author: Don Nava MD Service: Hospitalist Author Type: Physician Filed: 03/10/17 1101 Date of Service: 03/10/17 1041 Status: Signed Core Driller: Don Nava MD (Physician) [facility] Service: Hospitalist Progress Note Pt: Smita Willingham AGE/SEX: 61 y.o. female ROOM: [address] [place] [address] : 1955 PCP: No primary care provider [...] MD, FACP 03/10/2017 10:41 AM Dictation software, [employer], used which may contain error for similar [...] 03/10/17822 Date of Service: 03/10/17820 Status: Signed Core Driller: JENARO Mathew (Nurse Practitioner) [facility] Service: Colon & Rectal Surgery Progress [...] eval and treat, please encourage ambulation -D/C DRUM PLATER, percocet and dilaudid for pain -General diet [...] 03/10/17505 Date of Service: 03/10/17502 Status: Signed Core Driller: Angeles Tao RN (Registered Nurse) Pt very lethargic at start of shift with gradual improvement over the course of the night. Reports no pain when not moving but continues to push DRUM PLATER button often. Colostomy producing green liquid stool [...] 03/09/172007 Date of Service: 03/09/171956 Status: Signed Core Driller: Gris Yee RN (Registered Nurse) Pt continues to c/o pain but respiration drop down to 4-9 with DRUM PLATER. DRUM PLATER is stopped. Pt is a waken to [...] Management by Linnea Lezama RN at 03/09/17 298 Author: Linnea Lezama RN Service: (none) Author Type: Registered Nurse Filed: 03/09/17 1887 Date of Service: 03/09/171619 Status: Signed Core Driller: Linnea Lezama RN (Registered Nurse) 03/09/171619 Discharge [...] of Home Care Services Other (Comment) ([facility] for TPN) Mental Status Oriented;Other (comment) (Lethargic) Resources Financial concerns No Transportation issues No Patient/Family concerns No Prescription Plan Yes Name of Pharmacy [facility] in [place] Ostomy/Drains/Appliances Yes (New Colostomy) Anticipated Disposition Facility Type Home Met with pt who was oriented, but lethargic at this time, and discussed discharge planning, Pt is a 61 y.o., female who lives at home with her in [place], [place]. Pt is indepen dent with ADLs and mobility. Uses a cane and walker only as needed. Pt is currently set up with [facility] for TPN. Pt is on coumadin and follow up at the coumadin clinic in [place], [place]. Pt is not on home O2 [...] 03/09/17953 Date of Service: 03/09/17929 Status: Signed Core Driller: Jaz Gonzáles PT (Physical Therapist) 03/09/17929 PT [...] 03/09/17927 Date of Service: 03/09/17915 Status: Signed Core Driller: Don Nava MD (Physician) [facility] Service: Hospitalist Progress Note Pt: Smita [...] MD, FACP 03/09/2017 9:16 AM Dictation software, [employer], used which may contain error for similar [...] 1057 Date of Service: 03/09/17908 Status: Signed Core Driller: JENARO Mathew (Nurse Practitioner) [facility] Service: Colon & Rectal Surgery Progress Note Hospital Day: LOS: 2 days Post-Op Day: 1 Day Post-Op SUBJECTIVE Patient Summary: 61 y.o. female with Chron's and anovaginal fistulas SP colostomy Events Overnight: Pt complains of nausea this morning. Abdominal pain is controlled with DRUM PLATER. Colostomy noted with liquid stool and gas [...] Infusions lactated ringers 110 mL/hr at 03/09/17 0514 sodium chloride (IV) PRN Medications acetaminophen OR [...] to eval and treat, encourage ambulation -Continue DRUM PLATER for pain management -Continue CLD per ERAS [...] 0659 Date of Service: 03/09/1756 Status: Signed Core Driller: Ruma Guerra RN (Registered Nurse) Notified Dr. Morris of HGB 6.9, orders to transfuse 1 unit of blood. Informed MD that pt continue to be lethargic throughout night but easily arousable. ETCO2 up to 65 at times. Re spiratory came up to do STAT ABG, results came back normal, pt compensated. Will possibly d /c DRUM PLATER this AM pending MD decision. Will inform day shift RN. onver roshan Transaction, Provider Unknown - 03/09/2017 4:57 AM PST Progress Notes by Ruma Guerra RN at 03/09/17 0457 Author: Ruma Guerra RN Service: (none) Author Type: Registered Nurse Filed: 03/09/17 0503 Date of Service: 03/09/177 Status: Signed Core Driller: Ruma Guerra RN (Registered Nurse) Pt been lethargic but alert and oriented x 4 when pt asked orientation questions. Pt states "I feel like I am getting the flu, my body ache and I feel tired all the time" Vitals WNL, pain managed by DRUM PLATER pump. Incontinent of urine. Does not want to get out of bed. Will contin ue to monitor. onver roshan Transaction, Provider Unknown - 03/08/2017 11:43 AM PST Progress Notes by Chata Guadalupe RD at 03/08/17 1143 Author: Chata Guadalupe RD Service: (none) Author Type: Registered Dietitian Filed: 03/08/17 1144 Date of Service: 03/08/17 1143 Status: Signed Core Driller: Chata Guadalupe RD (Registered Dietitian) 03/08/17 1124 [...] note reports pt was on "TPN from [facility] in [place]: 275 g Dextrose, 90 g AA, 40 [...] Estimated Energy Needs Total Energy Estimated Needs 0758-5527 kcal/day Method for Estimating Needs 25-30 kcal/kg [...] Follow up date 03/11/[address] [facility] ett, JENARO Ruvalcaba - 03/08/2017 11:25 AM PST Progress Notes by JENARO Mathew at 03/08/17 0161 Author: JENARO Mathew Service: General Surgery Author Type: Nurse Roycee fernie Filed: 03/08/17 6161 Date of Service: 03/08/171124 Status: Signed Core Driller: JENARO Mathew (Nurse Practitioner) [facility] Service: Colon & Rectal Surgery Progress Note Hospital Day: LOS: 1 day Post-Op Day: 1 Day Post-Op SUBJECTIVE Patient Summary: 61 y.o. female with Chron's and anovaginal fistulas SP colostomy Events Overnight: Doing well. She complains of nausea this morning but better now. Abdominal pain is controlled with DRUM PLATER. welding production supervisor changed midline dressing, and ostomy appli ance. [...] recommendations -PT to eval and treat -Continue DRUM PLATER for pain management -Continue CLD per ERAS [...] Date of Service: 03/08/17 1017 Status: Signed Core Driller: Don Nava MD (Physician) [facility] Service: Hospitalist Progress Note Pt: Smita Willingham AGE/SEX: 61 y.o. 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 Thank you! Jazmyn Beard RN, BSN, CIC onver roshan Transaction, Provider Unknown - 03/07/2017 3:04 PM PST Progress Notes by Sofía Chamberlain RPH at 03/07/17 1505 Author: Sofía Chamberlain RPH Service: Pharmacy Author Type: Pharmacist Filed: 03/07/17 1504 Date of Service: 03/07/17 150 Status: Signed Core Driller: Sofía Chamberlain RPH (Pharmacist) Clinical Pharmacy Note: [...] Date of Service: 03/07/17 1413 Status: Signed Core Driller: Vernell Tovar RN (Registered Nurse) Called anesthesia and informed of pt's frequent PVCs but pt denies chest pain or SOB. BP 14 8/69, heart rate 88-90 bpm. Per anesthesia, pt was also having PVCs in the OR. Anesthesia st ates that she will talk with Dr. Morris for an order for pt to be on copy chaser on t he floor. Vernell Tovar RN docume nted in this encounter H&P Notes Enrique Morris MD - 03/07/2017 10:03 AM PSTFormatting of this note might be different f rom the original. Interval H&P Note by Enrique Morris MD at 03/07/17 1003 Author: Enrique Morris MD Service: General Surgery Author Type: Physician Filed: 03/07/17 1004 Date of Service: 03/07/17 1003 Status: Signed Core Driller: Enrique Morris MD (Physician) [facility] Service: Colon & Rectal Surgery Pre-Operative [...] Author Type: Nurse Jennifer enciso Filed: 03/02/17 7891 Date of Service: 03/02/17 1213 Status: Signed Core Driller: JENARO Mathew (Nurse Practitioner) Patient ID: Smita [...] She was then recommended to go to [place] for a second opinion. She never went to [place] due to the trip being a hardship [...] SETON PLACEMENT; Surgeon: Enrique Morris MD; Location: [facility] OR; Service: General; Laterality: N/A; APPENDECTOMY CHOLECYSTECTOMY ESOPHAGOGASTRODUODENOSCOPY Left 08/06/2015 Procedure: ESOPHAGOGASTRODUODENOSCOPY; Surgeon: Sheng Rios MD; Location: [facility] END[facility]COPY; Service: Gastroenterology; Laterality: Left; ESOPHAGOGASTRODUODENOSCOPY N/A 04/21/2014 Procedure: ESOPHAGOGASTRODUODENOSCOPY; Surgeon: Bony Petty MD; Location: [facility]; Service: Gastroenterology; Laterality: N/A; HYSTERECTOMY LAPAROTOMY N/A 04/23/2014 Procedure: EXPLORATION - LAPAROTOMY; Surgeon: Bogdan Moser DO; Location: [facility] OR; Service: General; Laterality: N/A; LYSIS OF ADHESIONS PORTACATH PLACEMENT Left SMALL INTESTINE SURGERY SPLENECTOMY, TOTAL N/A 04/23/2014 Procedure: SPLENECTOMY; Surgeon: Bogdan Moser DO; Location: [facility] OR; Service : General; Laterality: [...] Author Type: Nurse Jennifer enciso Filed: 03/02/17 1411 Date of Service: 03/02/171212 Status: Signed Core Driller: JENARO Mathew (Nurse Practitioner) Patient ID: Smita [...] She was then recommended to go to [place] for a second opinion. She never went to [place] due to the trip being a hardship [...] [facility]ON PLACEMENT; Surgeon: Enrique Morris MD; Location: [facility] OR; Service: General; Laterality: N/A; APPENDECTOMY CHOLECYSTECTOMY ESOPHAGOGASTRODUODENOSCOPY Left 08/06/2015 Procedure: ESOPHAGOGASTRODUODENOSCOPY; Surgeon: Sheng Rios MD; Location: [facility]COPY; Service: Gastroenterology; Laterality: Left; ESOPHAGOGASTRODUODENOSCOPY N/A 04/21/2014 Procedure: ESOPHAGOGASTRODUODENOSCOPY; Surgeon: Bony Petty MD; Location: [facility] PROCEDURE; Service: Gastroenterology; Laterality: N/A; HYSTERECTOMY LAPAROTOMY N/A 04/23/2014 Procedure: EXPLORATION - LAPAROTOMY; Surgeon: Bogdan Moser DO; Location: [facility] OR; Service: General; Laterality: N/A; LYSIS OF ADHESIONS PORTACATH PLACEMENT Left SMALL INTESTINE SURGERY SPLENECTOMY, TOTAL N/A 04/23/2014 Procedure: SPLENECTOMY; Surgeon: Bogdan Moser DO; Location: [facility] OR; Service : General; Laterality: [...] Date of Service: 03/08/17 1239 Status: Addendum Core Driller: Roberta Torres RN (Registered Nurse) Related Notes: Original Note by Roberta Torres RN (Registered Nurse) filed at 03/08/17 1 246 Consult Orders: 1. Ostomy Care Evaluation and Treat [[id number]] ordered by Enrique Morris MD at 03/07/17 1230 [facility] Service: Ostomy Care Consult Note Hospital Day: LOS: 1 day Post-Op Day: 1 Day Post-Op SUBJECTIVE Patient Summary: Patient s/p new end colostomy. Hx Crohn's. 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 Tolerating cl [...] ostomy appliance change and dressing change. New Boomrat rope plac e with thin hydrocolloid. 2-piece appliance placed next. Jsuten, CLINIC ADMINISTRATOR would prefer no incisio nal or ostomy care done if possible until Tuesday to keep incision dressing intact. Forms pl aced on the front of the patient's chart for MD signature. New ostomy packet provided to gio herring, along with extra appliance for her to practice with. Starter kit ordered from [employer] ([id number]) welding production supervisor will return on for packet review and [...] 03/07/171857 Date of Service: 03/07/171848 Status: Signed Core Driller: Veena Tobar MD (Physician) [facility] Service: Hospitalist Consult note Date of [...] in here rather than going t o [place] for a second opinion. 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 Chronic diarrhea COPD (chronic obstructive pulmonary disease) (HCC) Crohn's disease (HCC) Deep vein thrombosis (DVT) ([facility]) right leg and then travelled [...] chronic pain Pyelonephritis Recurrent aphthous ulcer Sepsis ([facility]) Past Surgical History Procedure Laterality Date ABDOMINAL SURGERY ANAL FISTULA SETON PLACEMENT N/A 10/17/2015 Procedure: ANAL FISTULA SETON PLACEMENT; Surgeon: Enrique Morris MD; Location: [facility] OR; Service: General; Laterality: N/A; APPENDECTOMY CHOLECYSTECTOMY ESOPHAGOGASTRODUODENOSCOPY Left 08/06/2015 Procedure: ESOPHAGOGASTRODUODENOSCOPY; Surgeon: Sheng Rios MD; Location: [facility] END[facility]COPY; Service: Gastroenterology; Laterality: Left; ESOPHAGOGASTRODUODENOSCOPY [...] ain. Patient remains on Dilaudid as needed DRUM PLATER as well as recommended by surgery because [...] Care by Rachel Adkins RN at 03/12/17 4147 Author: Rachel Adkins RN Service: (none) Author Type: Registered Nurse Filed: 03/12/17 6522 Date of Service: 03/12/171132 Status: Signed Core Driller: Rachel Adkins RN (Registered Nurse) Daily Care [...] 0754 Date of Service: 03/12/17627 Status: Signed Core Driller: Elizabeth Mckeon MD (Physician) Related Notes: Original [...] 03/11/172321 Date of Service: 03/11/172321 Status: Signed Core Driller: Lashawn Valdez RN (Registered Nurse) Problem: Safety [...] 03/11/172321 Date of Service: 03/11/172321 Status: Signed Core Driller: Lashawn Valdez RN (Registered Nurse) Problem: Pain [...] 03/11/171048 Date of Service: 03/11/171046 Status: Signed Core Driller: Blanca Shaffer RN (Registered Nurse) Daily Care [...] PO pain meds. Dose given. Up in [facility] [place] at this time watching television. Appears comfortable. lan o f Care - Conversion Transaction, Provider Unknown - 03/11/2017 12:09 AM PSTFormatting of mendy capellan note might be different from the original. Plan of Care by Lashawn Valdez RN at 03/11/178 Author: Lashawn Valdez RN Service: (none) Author Type: Registered Nurse Filed: 03/11/178 Date of Service: 03/11/178 Status: Signed Core Driller: Lashawn Valdez RN (Registered Nurse) Problem: Pain [...] 03/10/171634 Date of Service: 03/10/171634 Status: Signed Core Driller: Aniceto Chen PT (Physical Therapist) Problem: Mobility [...] 03/10/171114 Date of Service: 03/10/171114 Status: Signed Core Driller: Tanika Woodruff RN (Registered Nurse) Daily Care Daily care needs are met Progressing Pain Patient's pain/discomfort is manageable Progressing Safety Patient will be injury free during hospitalization Progressing Pt transitioned to orals and IV push, DRUM PLATER discontinued. lan o f Care - Conversion Transaction, Provider Unknown - 03/10/2017 5:07 AM PSTFormatting of thi s note might be different from the original. Plan of Care by Angeles Tao RN at 03/10/17506 Author: Angeles Tao RN Service: (none) Author Type: Registered Nurse Filed: 03/10/17506 Date of Service: 03/10/17506 Status: Signed Core Driller: Angeles Tao RN (Registered Nurse) Daily Care [...] 03/10/17243 Date of Service: 03/10/17243 Status: Signed Core Driller: Angeles Tao RN (Registered Nurse) Daily Care [...] 03/09/17634 Date of Service: 03/09/17632 Status: Signed Core Driller: Elizabeth Mckeon MD (Physician) Notified by RN h/hct dropped from 7.6/26.2 to 6.9/23.4 No overt bleeding sx. On DRUM PLATER , End tidal co2 is mid 60's [...] 03/09/17104 Date of Service: 03/09/1799 Status: Signed Core Driller: Ruma Guerra RN (Registered Nurse) Safety Patient will be injury free during hospitalization Not Progressing Pt reports improvement with prescribed pain medication per DRUM PLATER pump lan o f Care - Conversion Transaction, Provider Unknown - 03/08/2017 10:15 AM PSTFormatting of thi s note might be different from the original. Plan of Care by Era Shaikh RN at 03/08/17 1015 Author: Era Shaikh RN Service: (none) Author Type: Registered Nurse Filed: 03/08/17 1016 Date of Service: 03/08/17 1015 Status: Signed Core Driller: Era Shaikh RN (Registered Nurse) Pain Patient's pain/discomfort is manageable Progressing Pt continues to use DRUM PLATER appropriately. Will transition to oral meds once [...] 0330 Date of Service: 03/08/17328 Status: Signed Core Driller: Ruma Guerra RN (Registered Nurse) Pain Patient's pain/discomfort is manageable Progressing Pt reports improvement with DRUM PLATER pump. Re-assess pain per protocol Safety Patient [...] 03/07/171712 Date of Service: 03/07/171712 Status: Signed Core Driller: Becca Ahn RN (Registered Nurse) Patient will [...] General Surgery Author Type: Physician Filed: 03/07/17 9120 Date of Service: 03/07/170 Status: Signed Core Driller: Enrique Morris MD (Physician) Related Notes: Original Note by Enrique Morris MD (Physician) filed at 03/07/17 1234 [facility] Service: Colon & Rectal Surgery Operative Note Pre-operative Diagnosis: Crohn's disease, severe anorectal involvement, intractible diarrh ea. Post-operative Diagnosis: Same Procedure(s): Lysis of adhesions and creation of an end colostomy. Surgeon: Enrique Morris MD [employer] Architect(s): Severo EASON Anesthesia: General endotrachial anesthesia Estimated [...] Mar 12 2017 7:39AM Referring Provider Line: [phone] ID: | | | 109 | | [...] Mar 12 2017 7:39AM Referring Provider Line: [phone] ID: | | 109 | |Lungs/Pleura: Right [...] Mar 12 2017 7:39AM Referring Provider Line: [phone] ID: [id number] | + + External Lab: [...] | | | | | at [facility], [address] | | | | | | [facility], | | | | | | [place] [address] | | | | | |2+ | | | | | |POIK | | | | | |3+ | | | | | |ANISO | | | | | |NORMAL PLT MORPH | | | | | |Testing performed at [facility], [address] [place] [address] | | | | | | | [...] | | | | | performed at [facility], [address] | | | | | | [address], | | | | | | [place] [address] | | | | + + + [...] | | | | | performed at [facility], [address] | | | | | | [address], | | | | | | [place] [address] | | | | + + + [...] | | | | | | [place] [address] | | | | + + + [...] | | | | | performed at [facility], [address] | | | | | [address], | | | | | | [place] [address] | | | | + + + [...] | | | | | [place] [address] | | | | + + + [...] | | | | performed at [facility], [address] | | LAB | | | | [address], | | | | | | [place] [address] | | | | + + + [...] | | | | | at [facility], [address] | | | | | | [place] [place], | | | | | | [place] [address] | | | | + + + [...] | | | | | at [facility], [address] | | | | | | [facility], | | | | | | [place] [address] | | | | | |3+ | | | | | |HYPO | | | | | |NORMAL PLT MORPH | | | | | |Testing performed at [facility], [address] [facility], [place] [address] | | | | | | | [...] | | | | performed at [facility], [address] | | LAB | | | | [address], | | | | | | [place] [address] | | | | + + + [...] | | | | performed at [facility], [address] | | LAB | | | | [address], | | | | | | [place] [address] | | | | + + [...] [address], | | | | | | [place] [address] | | | | + + + [...] | | | | | [place] [address] | | | | + + + [...] | | | | | performed at [facility] | | | | | | [facility];[place], [place] | | | | | | [address] | | | | + + + [...] | | | | | performed at [facility], [address] | | | | | | [facility], | | | | | | [place] [address] | | | | | |TARGET | | | | | |NORMAL PLT MORPH | | | | | |Testing performed at [facility], [address] [facility], [place] [address] | | | | | | | [...] | | | | | [place] [address] | | | | + + [...] | | | | performed at [facility], [address] | | LAB | [...] | | | | | at [facility], [address] | | | | | | [facility], | | | | | | [place] [address] | | | | + + + [...] | | | | | at [facility], [address] | | | | | | [facility], | | | | | | [place] [address] | | | | | |2+ | | | | | |TARGET | | | | | |NORMAL PLT MORPH | | | | | |Testing performed at [facility], [address] [place] [address] | | | | | | | [...] | | | | performed at [facility], [address] | | LAB | | | | [place] [place], | | | | | | [place] [address] | | | | + + + [...] | | | | performed at [facility], [address] | | LAB | | | | [address], | | | | | | [place] [address] | | | | + + + [...] | | | | | at [facility], [address] | | | | | | [address], | | | | | | [place] [address] | | | | + + + [...] | | | | | performed at [facility] | | | | | | [facility];[place], [place] | | | | | | [address] | | | | + + + [...] | | | | | | at [facility];[address] [facility] | | | | | | [address];[place] [address] | | | | | |HYPO | | | | | |1+ | | | | | |TARGET | | | | | |NORMAL PLT MORPH | | | | | |Testing performed at [facility];[address] [place] [address];[place] [address] | | | | | | | [...] EXTERNAL | | | | performed at [facility];[address] | | LAB | | | | [address];[place] | | | | | | [address] | | | | + + + [...] EXTERNAL | | | | performed at [facility];[address] | | LAB | | | | [address];[place], [place] | | | | | | [address] | | | | + + + [...] | | | | | | at [facility];[address] [place] [address] | | | | | | [facility];[place] [address] | | | | + + + [...] | | | Fingerstick | performed at [facility];[address] | | LAB | | | | [address];[place], [place] | | | | | | [address] | | | | + + + [...] + + + | BB BAND | [id number] | | EXTERNAL | | | | | | LAB | | + + + + + + | UNIT NUMBER | [id number] | | EXTERNAL | | | | [...] | | | RESULT | performed at [facility];[address] | | LAB | | | | [address];[place] | | | | | | [address] | | | | + + + [...]
--- OUTSIDE RECORDS SUMMARY | ~2019-11-05 | XMS | Encounter Summary ---
Demographics + + + | Address | [address] | | | [place] [address] | + + + | Home Phone [...] Team Providers + +------+ + | Care Environmental Sampler Name | Role | Phone | + [...] | on | GENERAL SURGERY [address] | Gaming Floor Supervisor | | | | | [address] | | | | | | [place], [place] | | | | | | [address] | | | | | | [phone] | | | +--------+ + + + [...] as of this encounter Progress Angelina Riley, Gaming Floor Supervisor - 06/18/2019 1:20 PM PDTOstomy supply request sent to [facility] via fax. Fax confirmation received. documented [...]
--- OUTSIDE RECORDS SUMMARY | ~2019-11-05 | XMS | Encounter Summary ---
Demographics + + + | Address | [address] | | | [place] [address] | + + + | Home Phone [...] + + | Author | [facility] | + + + | Organization | [facility] | + + + | Address | Unknown | + + + | Phone | Unavailable | + + + Support + + + + + | Name | Relationship | Address | Phone | + + + + + | Kole Willingham | [place] | [address] | | | | | [place], [place] | | | | | [address] | | + + + + + | Cami Sawyer | ECON | Unknown | | + + + + + Care Team Providers + +------+ + | Care Multi Operation Machine Operator Name | Role | Phone [...] [address] | | | | | | [place], [place] | | | | | | [address] | | | +--------+ + + + [...]
--- OUTSIDE RECORDS SUMMARY | ~2019-11-05 | XMS | Encounter Summary ---
Demographics + + + | Address | [address] | | | [place] [address] | + + + | Home Phone [...] Providers + +------+ + | Care Product Analyst Name | Role | Phone | [...] Provider Unknown | | | | | [place], [place] | [phone] | | | | | [address] | | | | | | [phone] | | | +--------+ + + + [...]
[2019-11-07] MEDS ORDERED: POTASSIUM CHLO20 ME1 PO (10:13)
[2019-11-07] MEDS ORDERED: LEVOFLOXACIN750 MG PO (10:13)
== END 2019-11-07 14:39 | disposition home or self-care (01) | DRG 871 ==
LOC: ED 14:50 → CCU 20:52 → MS 11-06 16:15
PROVIDERS: ADMIT Internal Medicine; ATTEND Internal Medicine
DX: A41.50 Gram-negative sepsis, unspecified (principal); J15.6 Pneumonia due to other Gram-negative bacteria; K50.913 Crohn's disease, unspecified, with fistula; Z20.828 Contact with and (suspected) exposure to other viral communicable diseases; M81.0 Age-related osteoporosis without current pathological fracture; I10 Essential (primary) hypertension; K21.9 Gastro-esophageal reflux disease without esophagitis; G89.4 Chronic pain syndrome; E83.42 Hypomagnesemia; E87.6 Hypokalemia; E55.9 Vitamin D deficiency, unspecified; Z87.891 Personal history of nicotine dependence; Z86.718 Personal history of other venous thrombosis and embolism; Z79.01 Long term (current) use of anticoagulants; Z79.899 Other long term (current) drug therapy; Z88.1 Allergy status to other antibiotic agents; Z88.5 Allergy status to narcotic agent; Z88.0 Allergy status to penicillin
CPT/HCPCS: 36415; 51701; 51702; 71045; 74176; 80048; 80053; 81001; 83605; 83690; 83735; 85025; 85610; 87040; 87088; 96368; 99285-25; C9113; C9803; J0456; J0692; J0696; J1200; J1790; J1956; J2270; J2405; J2550; J3475; J3480; J7030; J7060; J7121; U0002

== ENCOUNTER 2020-08-11 21:51 | Inpatient (IN) | payer MEDICARE ==
[~2020-08-11] VITALS: Ht 172.7 cm; Wt 61.8 kg
[~2020-08-11 21:51] MED LIST changes: -COUMADIN6 MG PO; +LEVOFLOXACIN750 MG PO
--- NOTE | 2020-08-12 03:05 | NUR ---
PT ARRIVES TO CCU ROOM 128, TRANSFERRED TO BED USING SHEET WITH 3 STAFF. PT ALERT AND ORIENTED BUT LETHARGIC, ABLE TO ANSWER QUESTIONS APPROPRIATLEY.IVF CURRENTLY INFUSING. MEEHAN IN PLACE DRAINING DARK RED CLOUDY URINE.
--- NOTE | 2020-08-12 03:51 | NUR ---
CALL TO DR ANGUIANO TO ASK FOR PAIN MEDICATION/NAUSEA MED/LABS/ABX. NEW ORDERS GIVEN.
--- NOTE | 2020-08-12 04:30 | NUR ---
IN TO GIVE PAIN MEDICATION, PT FOUND VERY DIAPHORETIC. TEMP RECHECKED RECTALLY-98.5. PAIN MEDICATION GIVEN CRUSHED IN APPLESAUCE.
--- NOTE | 2020-08-12 06:18 | NUR ---
PT RESTING WITH EYES CLOSED. AWAKENS EASILY, OPENS EYES. VERY WEAK AND SLOW TO RESPOND. ASKED HOW SHE FEELS, SHE STATES " I DONT KNOW.". ASKED IF THE PAIN MEDICINE HAS HELPED SHE SAYS "YES, A LITTLE. MY NECK STILL HURTS." URINE OUTPUT HAS DROPPED TO 55ML OVER THE LAST 2 HOURS.
--- NOTE | 2020-08-12 06:35 | NUR ---
CRITICAL VALUE MAGNESIUM 0.6 RECIEVED FROM LAB. CALL TO DR ANGUIANO TO INFORM HER, ORDER GIVEN FOR 2G MAGNESIUM SULFATE.
--- NOTE | 2020-08-12 06:59 | NUR ---
CALL TO DR ANGUIANO TO INFORM OF CALCIUM CRITICAL VALUE.
--- NOTE | 2020-08-12 08:27 | NUR ---
IN PATIENT'S ROOM FOR ASSESSMENT, VITALS AND FUEL OIL CLERK. PT STATES SHE IS HAVING 8/10 PAIN. PT ASKING FOR SOMETHING TO EAT. DRAW SHEET CHANGED FROM UNDER PATIENT. IV MAG COMPLETE AND IV CALCIUM GLUCONATE STARTED. IVF CONTINUE AT 125 ML/HR. PT HAS ONLY A PORTACATH ACCESSED AT THIS TIME. PT HAS GAUZE IN LEFT NOSTRIL STILL FROM NOSE BLEED. HR IN THE 90s. MEEHAN DRAINING CONCENTRATED BROWNISH URINE. URINE OUTPUT SINCE 0700 IS 60 ML. PT GIVEN ICE CHIPS FOR COMFORT BUT ORDER IS STILL NPO AT THIS TIME.
[2020-08-12] MEDS ORDERED: TRAZODONE HCL150 MG PO (10:17)
--- NOTE | 2020-08-12 11:19 | NUR ---
Pt sleeping and unable to answer questions. Called spouse and received update. Spouse is very angry and blames the hospital for pts decline and weight loss. He states pt is declining and she stays on the sofa, she is weak and cannot shower. Pt uses depends and he cleans and changes her depends. Pt does not have feeling in her L leg and walking is very difficult. She has a cane but will not use it. Spouse states they are planning on selling home as he cannot work and they have almost exhausted their savings. He frequently rants loudly how everything is the hospitals fault and last year the police were called as he refused to take her home and the hospital declined to treat. I suggested to spouse he may benefit from help and he states he won't make any decision until he speaks with Smita and she gives him the okay. He did take the phone number for [employer] and I requested he call them for an evaluation and see if they would qualify for a cg in the home. He again states he will not do anything until Smita agrees.
--- NOTE | 2020-08-12 11:36 | NUR ---
MED REC COMPLETE
--- NOTE | 2020-08-12 11:46 | NUR ---
PATIENT WOKE UP ABOUT 30 MINUTES AGO FEELING VERY PANICKED, LIKE SHE COULDN'T BREATH WELL, AND THAT HER NOSE FELT LIKE IT WAS BLEEDING AGAIN. PATIENT NOTED TO BE VISIBLY SWEATING ON HER FOREHEAD. AXILLARY AND ORAL TEMP UNABLE TO BE OBTAINED. RECTAL TEMP NOTED TO BE 96.1. PT GIVEN A BED BATH AND CLEANED UP BEST POSSIBLE PATIENT HAD BLOOD ALL OVER FROM HER BLOODY NOSES SHE HAS BEEN STRUGGLING WITH FOR THE LAST [address] ANGUIANO UPDATED ON THESE FINDINGS. PT TO HAVE 1200 LABS DRAWN . IVF CONTINUE AT 125 ML/HR.
--- NOTE | 2020-08-12 13:00 | NUR ---
Spoke with Smita as she is awake. Updated I spoke with her and asked if she would consider a healthcare account manager to assist her spouse. She states she would like to discuss with him, she does not really want anyone in her home. Updated they can call [facility] and request helen to see if she would qualify for assist.
--- NOTE | 2020-08-12 13:09 | NUR ---
DR. ANGUIANO IN ROOM TO SEE PATIENT AGAIN AT THIS TIME. PT STATES SHE IS HURTING ALL OVER, HER JOINTS, HER BACK. PT IS STILL DIAPHORETIC COOL TO TOUCH. AXILLARY TEMP IS 92.5. HR IN THE 80s. LAST BP 91/63. PT WILL ALSO GET MORE VITAMIN K ORALLY. IVF CONTINUE AT 125 ML/HR. MEEHAN DRAINING YELLOW URINE.
--- NOTE | 2020-08-12 13:45 | NUR ---
PATIENT'S 1ST UNIT OF PRBC STARTED USING THE BLOOD WARMER FROM OR. PATIENT STILL REMAINS HYPOTHERMIC, WITH TEMPERATURES RANGING 95.2-96 TEMPORAL. PATIENT STILL SLIGHTLY DIAPHORETIC AND CLAMMY. PT TOLERATED FIRST 15 MINS OF BLOOD ADMIN W/O PROBLEM AND INFUSION RATE INCREASED TO 200 ML/HR. PT STILL ASKING FOR ICE CHIPS FOR COMFORT. CONTINUE TO MONITOR.
--- NOTE | 2020-08-12 14:57 | NUR ---
PT REQUESTED I NOT DISTURB HER AT THIS TIME. WILL CHECK BACK AGAIN
--- NOTE | 2020-08-12 16:38 | NUR ---
URINE NOTED TO BE BECOMING MORE CLOUDY WITH SEDIMENT LIKE. NEW SAMPLE OF URINE COLLECTED THROUGH LUER LOCK AND BY PREPPING WITH CHLORAPREP FIRST. 30 ML SENT TO LAB FOR REPEAT UA. PT'S EARLIER UPDATED ON THE PHONE AND HE STATES THAT PATIENT FREQUENLY HAS BAD UTIs AND WAS SUPRISED THAT HER URINE WASN'T THE MAIN SOURCE OF INFECTION. PT NOW RECEIVING 2ND UNIT OF BLOOD THROUGH BLOOD WARMER. PT RESTING IN BED AND DRIFTS OFF TO SLEEP EASILY, BUT ALSO AWAKENS EASILY. PT REQUESTING MOSTLY JUST ICE CHIPS FOR COMFORT. HR IN THE 80s. LAST BP 109/74.
--- NOTE | 2020-08-12 16:44 | NUR ---
FIRST 15 MIN OF BLOOD ADMIN OKAY AND PT TOLERATING WELL. BLOOD INFUSION RATE INCREASED TO 250 ML/HR. WILL CONTINUE TO MONITOR.
--- NOTE | 2020-08-12 17:19 | NUR ---
DR. ANGUIANO CALLED AND UPDATED ON UA RESULT AND ON HEME TEST. NO FURTHER ORDERS.
--- NOTE | 2020-08-12 18:36 | NUR ---
2ND UNIT OF BLOOD FINISHED. PT NOW RECEIVING IV THIAMINE AND THEN WILL GET HER ANTIOBIOTICS. FLAGYL WAS DELAYED FOR BLOOD ADMIN. WILL RETIME MEDICATIONS ON EMAR.
--- NOTE | 2020-08-12 19:30 | NUR ---
Report recieved from day shift RN, care of patient assumed at this time. Pt resting in bed watching television. is alert and oriented time 3. provided with warm blankets per patient request. Axillary temp 95.8. call light within reach. Denies further needs at this time.
--- NOTE | 2020-08-12 20:14 | NUR ---
assessment completed at this time. pt alert and oriented, denies pain. assisted with repositioning in bed. heart rate in the 70s, pt shivering but denies the need for more warm blankets. radial and pedal pulses palpable but weak. pt has fine crackles in bilateral lower lungs. encouraged coughing and deep breathing. spo2=94 percent. pt given medication for sleep. IV fluids continue infusing into port. call light within reach. denies further needs at this time.
--- NOTE | 2020-08-12 22:30 | NUR ---
IV ABX INFUSING AT THIS TIME. ASSISTED PT WITH REPOSITIONING IN BED. PLACED PILLOWS UNDER BOTH HIPS. PT REPORTS PAIN HAS DECREASED SINCE ADMINISTRATION OF PAIN MEDICATION. CALL LIGHT WITHIN REACH. NO FURTHER NEEDS AT THIS TIME.
--- NOTE | 2020-08-12 22:46 | EKG ---
[facility] [address] [facility] [place] [address] Signed Sinus tachycardia Otherwise normal ECG When compared with ECG of 09-MAR-2019 02:39, Vent. rate has increased BY 54 BPM Criteria for Septal infarct are no longer present Confirmed by MONE ANGUIANO MD ([id number]) on 08/12/2020 10:46:09 PM Electronically Signed By: MONE ANGUIANO MD 08/12/20 2246 PATIENT NAME: MACKENZIE HARTLEY Electrocardiogram DATE OF : 55 PHYSICIAN: MONE ANGUIANO MD REPORT #: [id number] REPORT IS CONFIDENTIAL AND NOT TO BE RELEASED WITHOUT AUTHORIZATION
--- NOTE | 2020-08-13 | NUR ---
ASSESSMENT COMPLETED. PT DROWSY BUT WAKENS TO VOICE. REMAINS ALERT AND OREINTED. ASSIST WITH REPOSITIONING IN BED. IV FLUIDS CONTINUE TO INFUSE. CALL LIGHT WITHIN REACH. NO FURTHER NEEDS AT THIS TIME.
--- NOTE | 2020-08-13 02:00 | NUR ---
PT STATES SHE IS FEELING UNCOMFORTABLE. REPOSITIONED. REQUESTING TO BLOW HER NOSE. DISCUSSED RISK FACTORS BASED ON CURRENT ILLNESS. BLOOD CONTINUES TO LEAK FROM LEFT NARE. CLEAN GAUZE IN PLACE. PT GIVEN ICE CHIPS, CALL LIGHT WITHIN REACH. WILL CONTINUE TO MONITOR.
--- NOTE | 2020-08-13 03:45 | NUR ---
PT TEARFUL. STATES SHE CANNOT BREATH THROUGH HER NOSE, AND THAT HER ENTIRE BODY IS PAINFUL. STATES SHE IS WORN OUT AND EXPRESSES FEELING HOPELESS. THERAPEUTIC COMMUNICATION. GIVEN PRN ORAL MORPHINE FOR PAIN CONTROL. ASSISTED WITH REPOSITIONING. ASSESSMENT COMPLETED. FLUIDS CONTINUE TO INFUSE. WILL CONTINUE MONITOR.
--- NOTE | 2020-08-13 06:08 | NUR ---
blood drawn from port. 10 mls wasted.
--- NOTE | 2020-08-13 06:11 | NUR ---
PT REPOSITIONED IN BED AND PROVIDED WARM BLANKETS AND ICE CHIPS. STATES SHE HAS GENERALIZED PAIN AND DISCOMFORT. CALL LIGHT WITHIN REACH. NO FURTHER NEEDS AT THIS TIME.
--- NOTE | 2020-08-13 07:30 | NUR ---
PATIENT SHIFT REPORT RECIEVED FROM KELP OR SEAGRASS GATHERER RN. PATIENT RESTING IN BED AND CALLS APPROPRIATELY. STUDENT NURSE GABRIEL TAKING CARE OF THIS PATIENT WITH THIS RN. WILL CONTINUE TO CLOSELY MONITOR.
--- NOTE | 2020-08-13 07:46 | NUR ---
RECIEVE REPORT FROM CUPOLA CHARGER INSULATION. PT LAYING IN BED HEAD OF BED ELEVATED. WHILE LOOKING ON HER SHE OPENED HER EYES AND CLOSED THEM RIGHT AWAY. NO COMPLICATIONS. HAS GAUZE ROLLED UP AND IN THE LEFT NOSTRIL WITH NOTICABLE BLOOD IN THE GAUZE. OXYGEN LEVEL IN THE UPPER 90'S. NO SIGNS OF LABORED BREATHING. PT IS CURRENTLY BREATHING THROUGH HER MOUTH.
--- NOTE | 2020-08-13 08:00 | NUR ---
PATIENT RESTING IN BED. VITALS STABLE. BREATH SOUNDS CLEAR WITH CRACKLES IN LEFT LOWER BASE. PATIENT ON RA WITH SPO2 95%. RR-20. BOWEL TONES ACTIVE. PATIENTS OSTOMY BAG HAS DARK LIQUID STOOL AND PATIENT WILL NEED IT BURPED PER PATIENT REQUEST. PATIENTS CALLED. WILL CALL HIM BACK ONCE MD UPDATES. WILL CONTINUE TO CLOSELY MONITOR.
--- NOTE | 2020-08-13 08:36 | NUR ---
ASSESSMENT COMPLETE ON PT. PT REPORTS BEING VERY UNCOMFORTABLE. REPOSITIONED PT. PT IS SLIGHTLY DROWSY AND EASILY AROUSED. PT HAS A IMPLANTED PORTED THAT HAS CONTINUOUS IV RUNNING WITHOUT COMPLICATIONS. PT ALSO HAS COLOSTOMY BAG THAT IS FLAT NO DRAINAGE, STOMA PINK IN COLOR NO SIGNS OF IRRITATION. PT REPORTS THAT BAG IS CHANGED EVERY THREE DAYS AND WILL NEED TO BE CHANGED TOMORROW. PT HAS A GAUZE PEICE ROLLED UP IN HER NOSE TO STOP THE NOSEBLEED FROM DRAINING. GAUZE IS RED AND BROWN IN COLOR LIGHTLY SATURATED. PT HAS WEAKNESS AND ADMITS TO NOT BEING ABLE TO HELP MUCH IN MOVING. NO QUESTIONS AT THIS TIME. CALL LIGHT WITHIN REACH. WILL CONTINUE TO MONITOR CLOSELY.
--- NOTE | 2020-08-13 09:28 | NUR ---
IN TO SEE PT. SWITCHED TO FULL LIQUID DIET AND ORDERED PHYSICAL THERAPY TO WORK WITH PT. WILL CONTINUE TO MONITOR CLOSELY. CALL LIGHT WITHIN REACH.
--- NOTE | 2020-08-13 10:01 | NUR ---
IN TO GIVE PT THIAMIN MEDICATION. PT READJUSTED IN BED AND REPORTS HAVING A HARD TIME GETTING COMFORTABLE. gAUZE PAD IN HER NOSE STILL IN PLACE. PT STRUGGLES BREATHING OUT OF THE ONE NOSTRIL SO MOUTH BREATING. PT REPORTS STRUGGLING SWALLOWING SINCE SHEE CAN ONLY BREATH OUT OF THE ONE SIDE OF HER NOSE. CASE MANAGEMENT IN WITH PT TALKING ABOUT POSSIBLE HOME CARE WHEN SHE GOES HOME. PT HAS ADMITTED TO [facility] THE PAST FEW WEEKS. NO OTHER CONCERNS AT THIS TIME. CALL LIGHT WITHIN REACH. WILL CONTINUE TO MONITOR CLOSELY.
--- NOTE | 2020-08-13 10:15 | NUR ---
Spoke with Smita and she is more awake today. Discussed her declining health and what she would like to do on discharge. She cont. to state she isn't sure if she would like a cg. Discussed best case for improving her mobility would be to go to a SNF for rehab. Discussed SNFs in the area and she would like [facility]. She is aware is has been declining and states she cannot get off the couch in at least 3 weeks. I will send a chart and call to check if there beds available.
--- NOTE | 2020-08-13 11:00 | NUR ---
Called and spoke with spouse and updated Smita agreed to placement for rehab. He was very excited and stated this is the best news he has had in a long time. Updated we have faxed her chart and left a message to check for bed availability. Will update when I have further news.
--- NOTE | 2020-08-13 12:30 | NUR ---
PATIENT CALLED AND IS PAINFUL ALL OVER PER PATIENT. PATIENT ALSO TEARFUL AT THIS TIME. GAVE PRN PAIN MEDICATION. PATIENT DENIES ANY OTHER NEEDS AT THIS TIME. WILL CONTINUE TO CLOSELY MONITOR.
--- NOTE | 2020-08-13 13:22 | NUR ---
PATIENT HAD AN EPISODE OF EMESIS. GAVE PRN PHENERGAN. WILL CHECK BACK IN WITH PATIENT. PATIENTS GOWN CHANGED AND PATIENT CLEANED UP. WILL CONTINUE TO CLOSELY MONITOR.
--- NOTE | 2020-08-13 13:54 | NUR ---
REPLACED PT DRAW SHEET AND READJUSTED PT. PLACED PILLOWW UNDER HER LEGS AND ANOTHER PILLOW BEHIND HER HEAD. EMPTIED PT COLOSTOMY WITH OUT COMPLICATIONS. PT REPORTS TO FEELING BETTER AND NOT SO NAUSEOUS. PT LEGS ARE SLIGHTLY SHAKING AND PT REPORTS BEING COLD AND HOT AT THE SAME TIME. OFFERED FLUIDS FOR PT. NO OTHER CONCERNS AT THIS TIME. CALL LIGHT WITHIN REACH. WILL CONTINUE TO MONITOR CLOSELY.
--- NOTE | 2020-08-13 15:04 | NUR ---
ADMINISTERED MEDICATIONS. PT HAS A NEW GAUZE ROLLED UP IN HER NOSE WITH NO SIGNS OF FRESH BLEEDING. PT IS DROWSY AND DENIES ASSITANCE AT THIS TIME. WARFARIN HELD AND DOCUMENTED HELD. PT DENIES BEING NAUSEOUS AT THIS TIME. PILLOW UNDER HER LEGS. PT DOES NO WANT HEEL PROTECTORS ON AT THIS TIME. TWO PILLOWS UNDER HER HEAD OF BED AT 14 DEGREES. COLOSTOMY BAG STILL EMPTY WITH NO GAS. SIDE RAILS UP, CALL LIGHT WITHIN REACH. NO CONCERNS AT THIS TIME. WILL CONTINUE TO MONITOR CLOSELY FOR CHANGES.
--- NOTE | 2020-08-13 16:30 | NUR ---
Called and left message for Pratibha requesting bed availability as I did not have a return call from this am.
--- NOTE | 2020-08-13 16:42 | NUR ---
PT RESTING QUEITLY IN BED WITH HEAD OF BED ELEVATED. EYES CLOSED. NO LABORED BREATHING. OXTGEN LEVELS AT 97%. RESPIRATIONS AT 20. PT EASILY AROUSED AND HAS NO QUESTIONS OR CONCERNS AT THIS TIME. CALL LIGHT WITHIN REACH.
--- NOTE | 2020-08-13 18:17 | NUR ---
PT ARRIVED FROM CCU AT ABOUT 1805 OR SO. V/S WDL, PT HAS NO NEEDS OR COCNERNS AT THIS TIME.
--- NOTE | 2020-08-13 19:36 | NUR ---
PATIENT RESTING QUIETLY IN BED, PATIENT HAS NO CURRENT CARE NEEDS, PM SHIFT REPORT RECEIVED, NO OTHER CARE NEEDS AT THIS TIME, CALL LIGHT IN REACH.
--- NOTE | 2020-08-13 21:03 | NUR ---
PATIENT HAVING 8/10 PAIN THAT IS GENERALIZED ACCORDING TO THE PATIENT. 5MG PO LIQUID MORPHINE GIVEN WITH EVENING MEDS. PATIENT GOT NEW ICE CHIPS AND NEW ICE WATER AND GIVEN WARM BLANKETS. VS STABLE AND PATIENT HAS NO OTHER CARE NEEDS AT THIS TIME. CALL LIGHT IS IN REACH.
--- NOTE | 2020-08-13 23:28 | NUR ---
PATIENT RESTING QUIETLY, EYES CLOSED, RESPIRATIONS REGULAR AND EVEN, CALL LIGHT IS IN REACH.
--- NOTE | 2020-08-14 00:03 | NUR ---
NEW IV BAG HUNG.
--- NOTE | 2020-08-14 00:35 | NUR ---
CCU CALLED TO HAVE THIS RN CHECK VS ON THE PATIENT SHE HAS DROPPED SOME QRS COMPLEXES ON HER TELE AND HAS HIT A HEART RATE FOR A MOMMENT TO 48. PATIENT'S VS ALL STABLE AT THIS TIME. PATIENT HAS NO C/O PAIN AT THIS TIME AND IS CONVERSIVE. REPORTED THIS BACK TO CCU AND THEY ARE GOING TO CHECK WITH AND SEE IF SHE HAS ANY ORDERS.
--- NOTE | 2020-08-14 01:00 | NUR ---
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 PT ASYMPTOMATIC AND VITAL SIGNS STABLE. UPDATED DR. ANGUIANO AT THIS TIME AND ORDERS RECEIVED FOR MORNING LABS: BMP AND MAGNESIUM. UPDATED MICROARRAY OPERATIONS VICE PRESIDENTIRIS, OF NEW ORDERS.
--- NOTE | 2020-08-14 01:25 | NUR ---
PATIENT RESTING QUIETLY, EYES CLOSED, RESPIRATIONS REGULAR AND EVEN, CALL LIGHT IS IN REACH.
--- NOTE | 2020-08-14 03:40 | NUR ---
PATIENT RESTING QUIETLY ON HER RIGHT SIDE, RESPIRATIONS REGULAR AND EVEN, EYES CLOSED, CALL LIGHT IN REACH.
--- NOTE | 2020-08-14 05:07 | NUR ---
PATIENT HAD 5MG PO MORPHINE AT EVENING SHIFT CHANGED AND HAS NOT NEEDED ANY THE REST OF THE SHIFT. VS HAVE BEEN STABLE EXCEPT FOR AN EPISODE OF BRADICARDIA NOTED BY CCU FROM THE TELE THAT DROPPED TO 48BPM AND PATIENT HAD DROPPED SOME QRS COMPLEXES WELL. WAS NOTIFIED AND NEW LABS WERE ORDERED FOR THE MONING. OTHERWISE PATIENT HAS SLEPT MOST OF THE SHIFT. URINE OUT PUT FROM [place] HAS BEEN GREAT. NO OTHER NEEDS AT THIS TIME AND ASSESSMENT REMAINS UNCHANGED FROM THE BEGINING OF THE SHIFT. CALL LIGHT IS IN REACH.
--- NOTE | 2020-08-14 07:00 | NUR ---
CALLED TO SEE IF WANTED TO ORDER A COVID SWAB NOW THAT PATIENT WAS NOT HAVING NOSE BLEEDS. WANTED TO WAIT FOR THIS MORNING'S INR TO COME BACK BEFORE SHE DECIDES.
--- NOTE | 2020-08-14 07:30 | NUR ---
RECEIVED REPORT AT 0700. NO NEW CONCERNS WERE NOTED AT THAT TIME.
--- NOTE | 2020-08-14 08:30 | NUR ---
PT OVERALL APPEARS FLAT IN FACIAL EXPRESSIONS. LOBES CLEAR, ABD SOUNDS PRESENT, NO PERIPH. EDEMA PRESENT. PT STILL VERY WEAK. PT STILL HAS POOR APPETITE. WILL CONTINUE TO MONITOR.
--- NOTE | 2020-08-14 09:20 | NUR ---
RT COLLECTED COVID 19 SWAB WITH NO COMPLICATIONS. RT USED THE CEPHEID RAPID TEST THROUGH [facility] PER DR REQUEST AT THIS TIME.
--- NOTE | 2020-08-14 10:03 | NUR ---
PER GUANAKITO AT [facility], SHE STATES SHE IS REVIEWING THE PATIENT CHART AND WILL CALL BACK WITH A DETERMINATION.
--- NOTE | 2020-08-14 10:40 | NUR ---
PT IN ROOM. EARLIER CHANGED OSTOMY.
--- NOTE | 2020-08-14 11:08 | NUR ---
linens changed, bed bath was done. patient was able to scoot up on the bed. warm blankets given. call light within reach. no further needs at this time.
--- NOTE | 2020-08-14 13:10 | NUR ---
PT IS IN ROOM AWAKE WATCHING TV. PT DOES NOT HAVE THE ACCESS TO INR POINT OF CARE PIN NUMBER. IS LOOKING AT HOME.
--- NOTE | 2020-08-14 14:08 | NUR ---
NO CHANGES NOTED WITH SECOND ASSESSMENT. CALLED WITH SANDRA LOMELI. WILL TRY IT OUT.
--- NOTE | 2020-08-14 16:00 | NUR ---
PT HAS BEEN RESTING MOST OF THE AFTERNOON. PT DOES NEED TO BE TURNED Q2HRS. NO NEW CONCERNS NOTED AT THIS TIME.
--- NOTE | 2020-08-14 16:30 | NUR ---
SPOKE WITH MACKENZIE AND SHE CONT. TO PLAN FOR DC TO [facility] FOR REHAB. WOULD LIKE [facility] FOR TRANSPORT.
--- NOTE | 2020-08-14 17:30 | NUR ---
NOTIFIED BY GUANAKITO FROM [facility], THEY ARE DECLINING MACKENZIE DUE TO THE COST OF HER CARLI OF >5000 PER MONTH AND CONCERN SHE WILL NEED FURTHER TRANSFUSIONS. THEY WILL NOT USE HER OWN MEDS. SPOKE WITH MACKENZIE AND SHE AGREES TO [facility]. CALLED ASHLEY AT [facility] AND SHE REQUESTED CHART AND FELT MED ISSUE COULD BE WORKED OUT. CHART FAXED WITH FACE SHEET, COVID TEST, H&P, CHART NOTES, PT EVAL AND NOTE, MEDICATION LIST. ASHLEY WILL CALL TOMORROW.
--- NOTE | 2020-08-14 17:48 | NUR ---
PT OVERALL HAD AN UNEVENTFUL DAY. PT DID STAND UP WITH PHYS. THERAPY TODAY. PT STILL VERY WEAK OVERALL. PT HALS HAS A VERY FLAT AFFECT WELL. PT NEEDS TURNED Q2HRS UNTIL SHE IS MOVING MORE. LOBES CLEAR, ABD SOUNDS PRESENT. OSTOMY OUTPUT IS SMALL OVERALL. PT ALSO HAS VERY POOR APPETITE THOUGH. HOME INR POINT OF CARE MACHINE IS NOT CORRECTLY WORKING. ADVISED PT TO NOT USE IT AGAIN. V/S WDL, URINE OUTPUT WDL SO FAR. PT IS REFUSING PO K+ OREDERED. MD REHMAN AWARE AND HE SAID HE WOULD CHANGE THE ORDER.
--- NOTE | 2020-08-14 19:42 | NUR ---
RECEIVED REPORT FROM DAY SHIFT RN. PATIENT IS RESTING IN BED WITH EYES CLOSED, RR 16. CALL LIGHT IN REACH.
--- NOTE | 2020-08-14 19:55 | NUR ---
PT CALLED D/T BEEPING IV PUMP IT IS NOW INFUSING FINE. PT DENIES NEEDS AT THIS TIME. CALL LIGHT IS CLOSE.
--- NOTE | 2020-08-14 20:30 | NUR ---
IN TO ASSIST RN WITH VITALS, OSTOMY AND MEEHAN EMPTIED AT THIS TIME, FRESH ICE WATER PROVIDED, NO FURTHER NEEDS AT THIS TIME
--- NOTE | 2020-08-14 20:45 | NUR ---
ASSEMENT COMPLETED. VITALS TAKEN AND RECORDED. KRISTOFER EMPTIED AND MEEHAN CARE COMPLETED. INTAKE AND OUPUT RECORDED. EVENING MEDCIATIONS GIVEN PER ORDER. IV INFUSING PER ORDER. PRN PAIN MEDICATION GIVEN. NO NAUSEA NOTED. REPOSITIONED. NO FURTHER NEEDS NOTED. CALL LIGHT AND BELONGINGS WITHIN REACH.
--- NOTE | 2020-08-14 22:05 | NUR ---
MEDICATIONS GIVEN PER ORDER. PATIENT DENIES ANY PAIN OR NAUSEA. NO NEEDS NOTED. CALL LIGHT IN REACH.
--- NOTE | 2020-08-14 23:15 | NUR ---
MEDICATION GIVEN PER ORDER. PATIENT DENIES ANY NEEDS. CALL LIGHT IN REACH. PATIENT REPOSITIONED.
--- NOTE | 2020-08-15 00:20 | NUR ---
MEDICATIONS GIVEN PER ORDER. PATIENT DENIES ANY NEEDS. CALL LIGHT IN REACH.
--- NOTE | 2020-08-15 02:22 | NUR ---
REPOSITIONED. PATIENT IS DROWSY. DENIES ANY PAIN OR NAUSEA. NO NEEDS NOTED. CALL LIGHT IN REACH.
--- NOTE | 2020-08-15 04:24 | NUR ---
PATIENT REPOSITIONED IN BED. PATIENT RATES PAIN AT A 10/10. PRN PAIN MEDICATION GIVEN PER ORDER. IV INFUSING PER ORDER. FRESH ICE WATER AND ICE CHIPS PROVIDED. NO FURTHER NEEDS NOTED. CALL LIGHT IN REACH.
--- NOTE | 2020-08-15 05:33 | NUR ---
VITALS TAKEN AND RECORDED. INTAKE AND OUPUT RECORDED. MEEHAN EMPTIED AND MEEHAN CARE COMPLETED. NO NEEDS NOTED. REPOSITIONED PATIENT. CALL LIGHT IN REACH.
--- NOTE | 2020-08-15 06:22 | NUR ---
LABS DRAWN FROM PORT AND SENT TO LAB. PATIENT TOLERATED ACITVITY WELL. NO NEEDS NOTED. CALL LIGHT IN REACH.
--- NOTE | 2020-08-15 07:30 | NUR ---
RECEIVED REPORT AT AROUND 0700, PT WAS SLEEPING AT THAT TIME. NO NEW CONCERNS NOTED .
--- NOTE | 2020-08-15 08:15 | NUR ---
LOBES ARE CLEAR, ABD SOUNDS PRESENT, OSTOMY HAS SOME LIQUID BROWN OUTPUT. PT PO INTAKE NEEDS TO INCREASE. PULSES WDL. PT IS A BIT STRONGER TODAY BUT OVERALL STILL WEAK. WILL MONITOR URINE OUTPUT SINCE IT WAS LOW FOR SEAM STAY STITCHER.
--- NOTE | 2020-08-15 09:36 | NUR ---
SPOKE WITH [facility] REGARDING ADMISSION STATES TO FACILITY FOR PATIENT. PER [facility] RECORDS NOT RECVD AT THIS TIME, CHART REFAXED. WILL FOLLOW UP WITH [facility] TODAY REGARDING ADMISSION TO SNF.
--- NOTE | 2020-08-15 09:58 | NUR ---
PATIENT AWAKE IN BED, VITALS AND I&OS CHARTED. MEEHAN EMPTIED. DISCUSSED AMBULATION/ TRANSFER TO CHAIR PLAN WITH LUKASZ AVALOS. CALL LIGHT IN REACH. NO OTHER NEEDS AT THSI TIME.
--- NOTE | 2020-08-15 10:48 | NUR ---
PT CURRENTLY WORKING WITH PHYS. THERAPY. PT WALKED TO CHAIR. A SCANT AMOUNT OF NICOLE BLOOD WAS NOTED ON ERMA PAD FROM [facility].
--- NOTE | 2020-08-15 11:39 | NUR ---
PT IN ROOM SITTING IN CHAIR. AT BEDSIDE.
--- NOTE | 2020-08-15 11:43 | NUR ---
SPOKE WITH ASHLEY FROM [facility]. DISCUSSED WITH ASHLEY REGARDING PATIENTS HUMIRA. ASHLEY WOULD LIKE TO SPEAK WITH PATIENT REGARDING THE PATIENT PLACEMENT WITH THEM. DAE CONTACT INFORMATION GIVEN TO ASHLEY. ASHLEY STATES SHE WILL CONTACT ISIDRO AND CONTINUE TO REVIEW THE PATIENT CHART. ADVISED ASHLEY THAT PATIENT WOULD POSSIBLY DISCHARGE TODAY IF NOT TUESDAY. ASHLEY WILL RETURN CALL WITH DETERMINATION TODAY.
--- NOTE | 2020-08-15 12:14 | NUR ---
LUKASZ AVALOS INFORMED ME THAT PT DID NOT WANT ME TO VISIT TODAY. WILL FOLLOW
--- NOTE | 2020-08-15 12:43 | NUR ---
ASSISTED PT BACK TO BED. LEFT FOR THE DAY. PT DID EAT A LITTLE MORE FOR LUNCH TODAY. PT NOW RESTING IN BED. NO NEW CONCERNS NOTED AT THIS TIME.
--- NOTE | 2020-08-15 13:57 | NUR ---
CONTACTED [facility] WITH [facility]. [facility] WAS ABLE TO CONTACT PATIENT ISIDRO. ACCEPTANCE TO [facility] GIVEN PER [facility]. PATIENT UNABLE TO DC TO FACILITY TO DAY, BUT PER [facility] CAN BE ADMITTED TOMORROW 08/16/20. [facility] REQUESTS CALL TO HER DIRECTLY AT [phone] TOMORROW FOR DISCHARGE. TRANSPORT WILL BE HANDLED BY AALIYAH AT TIME OF DISCHARGE. DR. REHMAN UPDATED AND HE WILL BE COMPLETING DISCHARGE ORDERS TODAY. KAYLYN FISHER RN NOTIFIED OF DISCHARGE PLAN AND GIVEN [facility]'S DIRECT CONTACT INFORMATION.
--- NOTE | 2020-08-15 15:46 | NUR ---
PT IS RESTING. PT IS HEP-LOCKED. NO NEW CONCERNS NOTED AT THIS TIME.
--- NOTE | 2020-08-15 15:55 | NUR ---
DISCHARGE PACKET WITH COPIES PLACED ON PATIENT CHART. KAYLYN MECHANIC FIELD SERVICE AWARE OF PACKET.
--- NOTE | 2020-08-15 17:29 | NUR ---
PT WALKED FROM BED TO CHAIR WITH PHYS. THERAPY. PO INTAKE WAS BETTER FOR LUNCH TODAY. URINE OUTPUT JUST ADQUATE. URINE STILL HAS SEDIMENT PRESENT. V/S WDL, LOBES CLEAR, ABD SOUNDS PRESENT, OSTOMY HAS OUTPUT. OUTPUT HOWEVER IS SOMEWHAT MININMAL DUE TO POOR PO INTAKE. PORT IS HEP-LOCKED NOW. PT OVERALL STILL HAS A VERY FLAT AFFECT. NO NEW CONCERNS WERE NOTED THIS SHIFT.
--- NOTE | 2020-08-15 19:15 | NUR ---
SHIFT REPORT RECEIVED FROM DAYSHIFT LUKASZ AVALOS AT BEDSIDE. pt AWAKE AND RESTING IN BED, FLAT AFFECT. DENIES NEEDS, BOARD UPDATED. LEFT CHEST PORT DRESSING C/D/I, HEP LOCKED PER REPORT. NO NEEDS VERBALIZED, CALL LIGHT IN REACH.
--- NOTE | 2020-08-15 21:45 | NUR ---
ASSESSMENT COMPLETE, SCHEDULED MEDS GIVEN (SEE EMAR) ALONG WITH PRN PAIN MEDICATION. MORPHINE DOSE VERIFIED WITH SECOND RN NAKUL. PORT DRESSING C/D/I, HEP LOCKED RECENTLY ON . pt DENIES NAUSEA, BT ACTIVE. FLAT AFFECT NOTED, pt ANSWERS QUESTIONS WITH BRIEF RESPONSES AND NODS. NO REDDNESS NOTED TO BACK OR COCCYX, pt ENCOURAGED TO CHANGE POSITIONS WHEN AWAKE, pt VERBALIZED UNDERSTANDING. NO FURTHER NEEDS, CALL LIGHT IN REACH.
--- NOTE | 2020-08-15 22:05 | NUR ---
IN PATIENT ROOM FOR I&O. OSTOMY BAG EMPTIED AND MEEHAN CARE COMPLETED. PATIENT WOULD NOD HEAD WHEN I SPOKE TO HER TO LET ME KNOW THE UNDERSTOOD. CALL LIGHT IN REACH. PATIENT RESTING WITH EYES CLOSED WHEN THIS FIRE CREW WORKER LEFT ROOM.
--- NOTE | 2020-08-16 00:53 | NUR ---
pt RESTING IN BED, EYES CLOSED. RR EVEN AND UNLABORED. NO DISTRESS NOTED. CALL LIGHT IN REACH.
--- NOTE | 2020-08-16 02:35 | NUR ---
pt RESTING IN BED WITH EYES CLOSED, RR EVEN AND UNLABORED. NO DISTRESS NOTED, pt RESTING ON HER LEFT SIDE, CALL LIGHT IN REACH.
--- NOTE | 2020-08-16 03:24 | NUR ---
ASSESSMENT COMPLETE, pt AWAKE AND RESTING IN BED. NO NEW CHANGES OR CONCERNS. pt DENIES PAIN, BUT REPORTS DISCOMFORT. IMPROVED AFTER BOOSTING IN BED WITH HELP FROM LUKASZ LENZ. FRESH ICE AND WATER PROVIDED ALONG WITH WARM BLANKETS. CALL LIGHT IN REACH.
--- NOTE | 2020-08-16 08:20 | NUR ---
PATIENT AWAKE IN BED. GAVE BREAKFAST DID VITALS AND AM CARE
--- NOTE | 2020-08-16 09:29 | NUR ---
Patient lying in bed. Rates pain 8/10, PRN analgesic provided with AM medications, takes without difficulty. Repositioned in bed. Assessment completed. Patient requesting rey be removed this AM. Denies other needs at this time. Call light in reach, bed rails up X2.
--- NOTE | 2020-08-16 10:43 | NUR ---
PATIENT IN BED WATCHING TV PATIENT STATES SHE DOESNT NEED ANYTHING
--- NOTE | 2020-08-16 11:22 | NUR ---
Visiting with son. States pain is not better. IV antibiotics infused, Flushed and converted to hep-lock. Ice chips provided.
--- NOTE | 2020-08-16 11:38 | NUR ---
PATIENT UP IN CHAIR. LINEN CHANGED. NOTHING ELSE NEEDED AT THIS TIME
--- NOTE | 2020-08-16 13:28 | NUR ---
Lying in bed, head of bed slightly elevated. Resting with eyes closed, respirations even and unlabored. Allowed to rest at this time. Call light in reach.
--- NOTE | 2020-08-16 13:51 | NUR ---
PATIENT ASLEEP WHEN WALKED IN. VITALS AND I&O'S CHARTED
--- NOTE | 2020-08-16 15:22 | NUR ---
Assessment completed. No changes from AM assessment. Scheduled medications given as prescribed. Takes without difficulty. Call light in reach, bed rails up X2.
--- NOTE | 2020-08-16 15:46 | NUR ---
PATIENT ASLEEP DURING THESE ROUNDS
--- NOTE | 2020-08-16 15:59 | NUR ---
Wolf catheter DC'd. Tolerated well. States she is unsure when she voids due to previous injury. Depend on patient. Ice chips provided. Denies other needs at thsi time.
--- NOTE | 2020-08-16 17:04 | NUR ---
ASKED PATIENT IF OSTOMY NEEDED EMPTY PATIENT STATED NO . WILL ASK AGAIN NEXT ROUNDS
--- NOTE | 2020-08-16 17:40 | NUR ---
PATIENTS OSTOMY EMPTIED AND CHARTED ALONG WITH VITAL AND I&O'S. NOTING ELSE NEEDED
--- NOTE | 2020-08-16 17:45 | NUR ---
Patient oriented. Sleeping throughout most of today. Worked with PT this AM and sat in recliner for short period of time after. Wolf catheter DC'd this afternoon, no UO since removal. Repeat blood cultures obtained today. Cipro intitiated today. Morphine given X1 today.
--- NOTE | 2020-08-16 19:25 | NUR ---
RECEIVED REPORT FROM LUKASZ FALLON. pt RESTING IN BED. pt REQUESTED PRN PAIN MEDICATION FOR 8/10 PAIN. WHITEBOARD UPDATED. CALL LIGHT WITHIN REACH.
--- NOTE | 2020-08-16 19:49 | NUR ---
PRN PAIN MEDICATION GIVEN FOR 11/18 PAIN (SEE MAR). EMPTIED OSTOMY. PROVIDED FRESH ICE CHIPS. NO FURTHER REQUESTS AT THIS TIME. CALL LIGHT WITHIN REACH.
--- NOTE | 2020-08-16 21:00 | NUR ---
CREDIT OFFICE MANAGER ROUNDING NOTE. PT UTLIZES CALL LIGHT, REQUESTS FOR ATTENDS TO BED CHANGED. NEW CHUX PLACED. PT DENIES QUESTIONS, CONCERNS, AND NEEDS DENIED. CALL LIGHT IN REACH. WHITE BOARD UPDATED.
--- NOTE | 2020-08-16 21:27 | NUR ---
IN TO DO ASSESSMENT. pt RESTING IN BED. REPORTED THAT PAIN IS UNCHANGED. DISCUSSED OPTIONS FOR PAIN MANAGEMENT. pt AGREEABLE TO PLAN. ASSESSMENT DONE. pt REPORTED INCONT. EPISODE OF URINE. PER pt CHANGED DEPENDS WITH ANOTHER NURSE. IV ANTIBIOTIC INFUSING PER ORDERS. BRISK BLOOD RETURN FROM PORT. DRESSING CDI. NO REQUESTS AT THIS TIME. CALL LIGHT WITHIN [facility].
--- NOTE | 2020-08-16 22:24 | NUR ---
IV INFUSION COMPLETED. HEP LOCKED PER PROTOCOL. pt RESTING IN BED WITH EYES CLOSED, RESPIRATIONS REGULAR AND UNLABORED. CALL LIGHT WITHIN REACH.
--- NOTE | 2020-08-16 23:28 | NUR ---
patient called requesting her dipper to be changed. patient lifted own hips and tolerated well. reji care and fresh chucks/dipper. requests pain meds. RN notified.
--- NOTE | 2020-08-16 23:30 | NUR ---
pt REQUESTED PRN PAIN MEDICATION FOR 8 PAIN. GIVEN (SEE MAR). CALL LIGHT WITHIN REACH.
--- NOTE | 2020-08-17 01:33 | NUR ---
ROUNDED ON pt. RESTING IN BED WITH EYES CLOSED, RESPIRATIONS REGULAR AND UNLABORED. CALL LIGHT WITHIN REACH.
--- NOTE | 2020-08-17 03:55 | NUR ---
ROUNDED ON pt. RESTING IN BED WITH EYES CLOSED, RESPIRATIONS REGULAR AND UNLABORED. CALL LIGHT WITHIN REACH.
--- NOTE | 2020-08-17 04:37 | NUR ---
CALL LIGHT ON. pt STOOD TO HAVE DEPENDS CHANGED AND COLOSTOMY EMPTIED. FRESH DEPENDS IN PLACE. BLOOD NOTED WHEN pt WIPED. pt STATED IT WAS "NORMAL" FOR HER. ASSESSMENT DONE. NO CHANGES NOTED. pt SITTING IN BED. CALL LIGHT WITHIN REACH.
--- NOTE | 2020-08-17 07:20 | NUR ---
Report from Froylan Balbuena RN. Patient resting in bed, eyes closed, respirations even and unlabored. Allowed to rest. Call light in reach, bed rails up X2.
--- NOTE | 2020-08-17 07:58 | NUR ---
PATIENT AWAKE WATCHING TV. VITALS DONE REFRESHED ICE CHIPS ORDERED BREAKFAST. NOTHING ELSE NEEDED AT THIS TIME
--- NOTE | 2020-08-17 08:26 | NUR ---
Patient lying in bed, watching TV. States pain is currently tolerable. Denies needs at this time. Labs pulled from port and given to lab staff. AM medications administered. Takes without difficulty. Call light in reach, bed rails up X2.
--- NOTE | 2020-08-17 08:28 | NUR ---
PATIENT UP BRUSHING TEETH WHEN THIS POULTRY HUSBANDMAN WALKED IN. NOTHING NEEDED AT THIS TIME
--- NOTE | 2020-08-17 10:54 | NUR ---
Incontinent of urine. Gets up and ambulates with ENTER[employer]OURCE PLANNER per patient request.
--- NOTE | 2020-08-17 11:11 | NUR ---
PATIENT UP IN CHAIR AFTER AMBULATING. THIS PV DESIGN AND INSTALLATION TECHNICIAN HELPED HER BRUSH HER HAIR NOW VISITING WITH .
--- NOTE | 2020-08-17 13:39 | NUR ---
Patient in bed, resting with eyes closed. Assessment completed, scheduled medication administered. Takes without difficulty. Denies other needs, call light in reach.
--- NOTE | 2020-08-17 15:49 | NUR ---
ON THESE ROUNDS PATIENT APPEARS TO BE SLEEPING
--- NOTE | 2020-08-17 18:01 | NUR ---
Up in chair for a couple hours this morning. Tolerating full liquid diet. Remains on IV antibiotics, awaiting blood cultures obtained on 08/16/20. Left subclavian port remains accessed, pulls blood and flushes without difficulty. Incontinent of urine. Ambulates twice today with staff. Morphine given X1 for pain, improved slightly.
--- NOTE | 2020-08-17 18:01 | NUR ---
Lying in bed, denies needs. Call light in reach. Bed rails up X2.
--- NOTE | 2020-08-17 18:54 | NUR ---
PATIENT REFUSED LAST ROUNDS INCONTINENCE CHANGING AND EMPTYING OF OSTOMY. PATIENT STATES "IT IS ALL AIR IN THE OSTOMY AND THAT SHE HAS HER OWN BRIEFS ON AND SHE DOESNT NEED CHANGED". THIS PIECE JOBBER MENTIONED TO HER THAT" I CANT HAVE HER SIT IN A WET BRIEF", AND SHE STUCK HER HAND IN IT AND SAID NO ITS DRY. THEN I AGAIN MENTIONED THE OSTOMY BEING EMPTIED AND SHE STATED " ITS ALL AIR AND IT DOESNT NEED TO BE EMPTIED." THIS PIECE JOBBER TOLD HER," LET ME KNOW IF YOU CHANGE YOUR MIND TO BE CHANGED."
--- NOTE | 2020-08-17 19:00 | NUR ---
REPORT RECEIVED FROM OFFGOING RNVASYL.
--- NOTE | 2020-08-17 20:55 | NUR ---
PT ASSESSMENT COMPLETE. PT RESTING IN BED, RATES PAIN 8/10, GENERALIZED. PRN PAIN MEDICATION ADMINISTERED PER REQUEST, SEE EMAR. PT DENIES SOB, OR NAUSEA. OSTOMY PRESENT TO ABD. PT DOES NOT WANT IT EMPTIED AT THIS TIME. PT DENIES ABD TENDERNESS. ATTENDS IN PLACE FOR INCONTINENCE, DRY AT THIS ASSESSMENT. PORT WITH BRISK BLOOD RETURN NOTED, FLUSHED. SCHEDULED ABX INITIATED. PT DENIES FURTHER NEEDS AT THIS TIME. CALL LIGHT IN REACH.
--- NOTE | 2020-08-17 22:45 | NUR ---
BARREL CHARRER TO ROOM FOR IV PUMP ALARMING. PT RESTING IN BED WATCHING TV. DENIES NEEDS AT THIS TIME. CALL LIGHT IN REACH.
--- NOTE | 2020-08-18 00:32 | NUR ---
PT RESTING IN BED WITH EYES CLOSED. RESPIRATIONS EVEN AND UNLABORED. PT APPEARS TO BE SLEEPING. CALL LIGHT IN REACH.
--- NOTE | 2020-08-18 03:24 | NUR ---
CHANGED PATIENT'S INCONTINENT PULL UPS. ICE CHIPS PROVIDED. CALL LIGHT WITHIN REACH.
--- NOTE | 2020-08-18 03:32 | NUR ---
PT ASSESSMENT COMPLETE. PT REPORTS PAIN 8/10 GENERALIZED, PT REQUESTS PRN MS. ADMINISTERED. PT DENIES NAUSEA OR SOB. OSTOMY WITH BROWN DRAINAGE. PT DECLINES FOR IT TO BE EMPTIED AT THIS TIME. ATTENDS IN PLACE FOR INCONTINENCE. PORT ACCESSED, HEP LOCKED. PT DENIES FURTHER NEEDS AT THIS TIME. STATES "IM JUST TRYING TO NOT THINK ABOUT MY MOVE TOMORROW." CALL LIGHT IN REACH.
--- NOTE | 2020-08-18 05:47 | NUR ---
DIGITAL IMAGING TECHNICIAN AND TALKING BOOKS LIBRARY CLERK TO ROOM FOR VS. PT RESTING IN BED AWAKE WATCHING TV. PT STATES THAT PAIN IS "OK". DENIES NEEDS AT THIS TIME. CALL LIGHT IN REACH.
--- NOTE | 2020-08-18 07:15 | NUR ---
SHIFT REPORT FROM NURSE GALICIA. PT SLEEPING AT THIS TIME. NO APPARENT SIGNS OF DISTRESS. CALL LIGHT WITHIN REACH.
--- NOTE | 2020-08-18 08:56 | NUR ---
IN ROOM FOR MORNING MEDS AND ASSESSMENT. PT IS ALERT AND AWAKE AND FINSIHED WITH BREAKFAST. VSS. PT REPORTS NO PAIN AT THIS TIME. CIPRO IV INFUSING. PORT FLUSHES EASILY WITH NS PRIOR TO INFUSION. PT REPORTS FEELING NERVOUS ABOUT DISCHARGE TODAY. PT DENIES FURTHER NEEDS AT THIS TIME. CALL LIGHT AND BEDSIDE TABLE WITHIN REACH
--- NOTE | 2020-08-18 11:50 | NUR ---
ROUNDED ON PT; PT REQUESTS ADVANCING TO REGULAR DIET. OK PER DR REHMAN. PT ORDERED FULL LUNCH. REQUESTS DENTURES TO PREPARE FOR LUNCH; ALL SUPPLIES SET UP ON BEDSIDE TABLE. CALL LIGHT WITHIN REACH.
--- NOTE | 2020-08-18 11:59 | NUR ---
PER PEEWEE RN PATIENTS CONTACTED REGARDING DISCHARGE TODAY. ISIDRO PATIENT STATES HE WILL FOLLOW THE PATIENT TO [facility] WHEN DISCHARGE. ISIDRO TO DELIVER PATIENTS HOME MEDICATION TO FACILITY. ASHLEY HAWK NOTIFIED OF PLAN.
[2020-08-18] MEDS ORDERED: CIPROFLOXA400 MG/200 IV (12:03)
--- NOTE | 2020-08-18 12:25 | NUR ---
both nartes swabbed for covid-19 without complication. sample taken to [facility] for rapid testing.
--- NOTE | 2020-08-18 12:45 | NUR ---
PER ASHLEY AT [facility] TRANSPORTATION WILL BE HERE FOR PATIENT AT 1430 TODAY. DIANA FISHER RN NOTIFIED.
--- NOTE | 2020-08-18 13:33 | NUR ---
PATIENT FINISHED EATING. LAYING IN BED WAITING FOR DISCHARGE. NOTHING ELSE NEEDED AT THIS TIME
--- NOTE | 2020-08-18 13:34 | NUR ---
HONORING PT'S REQUEST FOR NO S.CARE VISITS. WILL FOLLOW NEEDED
--- NOTE | 2020-08-18 14:43 | NUR ---
[facility] TRANSPORT ARRIVED FOR PT. PT'S BELONGINGS GATHERED AND SENT WITH PT. VSS. DISCHARGE PACKET WITH PT. PT'S INFORMED THAT PT HAD DISCHARGED THE HOSPITAL.
== END 2020-08-18 14:45 | DRG 315 ==
LOC: ED 21:51 → CCU 08-12 02:34 → MS 08-13 18:15
PROVIDERS: ADMIT Internal Medicine; ATTEND Internal Medicine
DX: T80.211A Bloodstream infection due to central venous catheter, initial encounter (principal); R78.81 Bacteremia; N17.9 Acute kidney failure, unspecified; D62 Acute posthemorrhagic anemia; D68.32 Hemorrhagic disorder due to extrinsic circulating anticoagulants; K50.90 Crohn's disease, unspecified, without complications; E87.1 Hypo-osmolality and hyponatremia; F11.20 Opioid dependence, uncomplicated; Z20.822 Contact with and (suspected) exposure to COVID-19; B96.89 Other specified bacterial agents as the cause of diseases classified elsewhere; R04.0 Epistaxis; T45.515A Adverse effect of anticoagulants, initial encounter; E86.0 Dehydration; M81.0 Age-related osteoporosis without current pathological fracture; G89.4 Chronic pain syndrome; D72.829 Elevated white blood cell count, unspecified; E87.6 Hypokalemia; E83.42 Hypomagnesemia; E83.51 Hypocalcemia; D63.8 Anemia in other chronic diseases classified elsewhere; Z66 Do not resuscitate; Z79.899 Other long term (current) drug therapy; Z79.01 Long term (current) use of anticoagulants; Z88.5 Allergy status to narcotic agent; Z88.0 Allergy status to penicillin; Z88.1 Allergy status to other antibiotic agents; Z88.8 Allergy status to other drugs, medicaments and biological substances; Z87.891 Personal history of nicotine dependence; Z86.718 Personal history of other venous thrombosis and embolism; Z93.3 Colostomy status
CPT/HCPCS: 36415; 36430; 51702; 71045; 80048; 80053; 81001; 82607; 83605; 83735; 84484; 85025; 85610; 85651; 85730; 86850; 86900; 86901; 86920; 86927; 87040; 87077; 87088; 87184; 87186; 93005; 93010; 97110; 97162; 97530; 99285-25; C9803; J0610; J0744; J1720; J1956; J2550; J3411; J3475; J3480; J7030; J7060; J7121; P9016; U0003

== ENCOUNTER 2021-05-28 03:20 | Inpatient (IN) | payer MEDICARE ==
[~2021-05-28] VITALS: Ht 172.7 cm; Wt 61.9 kg
[~2021-05-28 03:20] MED LIST changes: +AMITRIPTYLINE H25 MG PO; +CIPROFLOXA400 MG/200 IV; +TRAZODONE HCL150 MG PO
--- NOTE | 2021-05-28 09:28 | NUR ---
Pt arrived to the floor c/o nausea wanting zofran. Tachy in the 120's flat affect reluctant to answer questions. No s/sx of any distress. infusing electrolytes. Call light within reach will continue to monitor
--- NOTE | 2021-05-28 10:50 | NUR ---
PT CONTINUES TO COMPLAIN OF PAIN, ORDER FOR MS 1 MG. PT STATES SHE TAKES 4MG, WILL REASSESS IN 15 MINUTES . REMAINS TACHY.
--- NOTE | 2021-05-28 11:01 | NUR ---
pt complains of lower abdominal discomfort. Assisted pt with repositioning in bed. Call light within reach. Will continue to monitor.
--- NOTE | 2021-05-28 11:26 | NUR ---
PT CONTINUES WITH PAIN TO PELVIS AREA. INCREASED PAIN MEDS PER MD. MD AWARE OF ELEVATED WBC 43.9. WILL START ABX THERAPY.
--- NOTE | 2021-05-28 14:32 | NUR ---
VITALS CHARTED. PATIENT WAS INCONTINENT OF URINE. CLEAN BRIEF PROVIDED. CALL LIGHT IN EASY REACH. RN HORTENSIA IN ROOM AT THIS TIME
--- NOTE | 2021-05-28 14:42 | NUR ---
PT LAYING IN BED, INCONT REPORTS HX OF SPINAL INJURY NOT AWARE WHEN SHE VOIDS. URING IN ATTENDS NOTED TO BE DARK BROWN. PT CONTINUES WITH PAIN ASKING TO HAVE PAIN MEDS AT EVERY 4HRS . CALL LIGHT WITHIN REACH WILL CONTINUE TO MONITOR
--- NOTE | 2021-05-28 15:44 | NUR ---
PT REQUESTING PAIN MEDS. PER MD MORPHINE Q 4 HRS PRN. MORPHINE GIVEN 4MG GIVEN. PT WITH A HX OF CHRONIC PAIN , TAKES MORPHINE AT HOME. RESP EVEN AND UNLABORED NO S;SX OF ANY DISTRESS. CALL LIGHT WITHIN REACH WILL CONTINUE TO MONITOR.
--- NOTE | 2021-05-28 16:51 | NUR ---
NEW ORDER FOR MEEHAN HEMATURIA NOTED, PT TOLERATED WELL. CALL LIGHT WITHIN REACH. WILL CONTINUE TO MONITOR.
--- NOTE | 2021-05-28 17:46 | NUR ---
MED REC COMPLETE
--- NOTE | 2021-05-28 18:43 | NUR ---
PT WBC CAME BACK CRITICAL AT 40, TRENDING DOWN . MD AWARE PT ON ABX AND URINE CULTURES SENT. PT DENIES ANY CONCERN AT THIS TIME. RESP EVEN AND UNLABORED. REMAINS TACHYCARDIC BUT RATE DECREASING INTO THE 115'S.L CALL LIGHT WITHIN REACH.
--- NOTE | 2021-05-29 00:22 | NUR ---
PT REPORTS 7/10 PELVIC/ABDOMINAL PAIN. PRN MORPHINE ADMINSITERED PER REQUEST. PT DENIES FURTHER NEEDS AT THIS TIME. WILL CONTINUE TO MONITOR.
--- NOTE | 2021-05-29 03:26 | NUR ---
PT IS RESTING QUIETLY EYES CLOSED. VSS. PT REMAINS IN SINUS TACH WITH HR 105-120. WILL CONTINUE TO MONITOR.
--- NOTE | 2021-05-29 04:23 | NUR ---
PT HAS PERSISTENT PELVIC, LOW ABDOMINAL PAIN RATED AT 7/10. PAIN TREATED WITH 4mg IV PRN MORPHINE. PT REQUESTS PAIN MEDICATION EVERY 4 HOURS. PT STATES THAT MORHPINE DOES PROVIDE RELIEF. WILL CONTINUE TO MONITOR PAIN.
--- NOTE | 2021-05-29 08:05 | NUR ---
IN ROOM FOR MEDICATION ADMINISTRATION AND TO COMPLETE ASSESSMENT. PT ALERT AND ORIENTED. COMPLAINS OF 8/10 LOWER ABDOMINAL PAIN. PRN PAIN MEDICATION GIVEN AT THIS TIME (SEE EMAR). PT REMAINS WEAK, BUT STATES " I FEEL BETTER THAN YESTERDAY. hEART RATE 115 AT REST. RESPIRATIONS EVEN AND UNLABORED RR =15 MIN. URINE IS TEA COLORED IN MEEHAN CATHETER. ABDOMEN IS SOFT AND NON DISTENDED. PT HAS ACTIVE BOWEL TONES. IV POTASSIUM AND IV FLUIDS INFUSING. PLAN OF CARE FOR DAY ESTABLISHED. CALL LIGHT WITHIN REACH. WILL CONTINUE TO MONITOR.
--- NOTE | 2021-05-29 09:09 | NUR ---
VITALS CHARTED, WASHCLOTH PROVIDED FRO FACE AND HANDS. SMALL CUP OF ICE CHIPE PROVIDED. CALL LIGHT IN EASY REACH
--- NOTE | 2021-05-29 10:46 | NUR ---
MEEHAN EMPTIED AND CHARTED
--- NOTE | 2021-05-29 11:52 | NUR ---
ASSESSMENT COMPLETED AND PAIN MEDICATION ADMINISTERED (SEE EMAR). PT RATES HER PAIN LEVEL 8/10. LUNGS SOUND CLEAR IN THE UPPER AIRWAYS, AND DIMINISHED IN BILATERAL BASES. BREATHING EVEN, LABORED WITH EXERTION. PT STATES SHE FEELS GENERALLY WEAK, BUT IMPROVED FROM YESTERDAY. IV FLUIDS INFUSING. PLAN OF CARE FOR DAY ESTABLISHED. CALL LIGHT WITHIN REACH. WILL CONTINUE TO MONITOR.
--- NOTE | 2021-05-29 11:58 | NUR ---
DR REHMAN AT BEDSIDE TO ASSESS PT AT THIS TIME.
--- NOTE | 2021-05-29 12:09 | NUR ---
JAN PT INFORMED ME SHE DID NOT FEEL LIKE A VISIT AT THIS TIME. WILL FOLLOW NEEDED
--- NOTE | 2021-05-29 12:47 | NUR ---
IV MAGNESIUM AND POTASSIUM NOW INFUSING. ASSEMBLER CHASSIS DC'D. PT BACK IN BED. UPDATED ON PLAN TO MOVE TO THE MEDICAL FLOOR LATER THIS AFTERNOON.
--- NOTE | 2021-05-29 15:48 | NUR ---
Patient awake, a&ox4. Patient reports pain is tolerable at this time. IV kcl infusing per provider order. Patient tolerating clear liquids well, denies nausea. Fresh water provided. Patient has no distress and or needs at this time. Personal supplies and call light within reach.
--- NOTE | 2021-05-29 16:38 | NUR ---
Morphine 4mg IVp admin for reports of 6/10 generalized pain.
--- NOTE | 2021-05-29 19:24 | NUR ---
RECEIVED REPORT FROM CHELLE LAL. PT RECEIVING K+ IV.
--- NOTE | 2021-05-29 20:10 | NUR ---
IN TO GET VITALS, PT NEEDED HER OSTOMY EMPTIED, PAIN MEDICATION, RN AWARE, WILL BE IN SHORTLY, FRESH ICE WATER GIVEN
--- NOTE | 2021-05-29 22:55 | NUR ---
PT ASLEEP. 2ND IV POTASSIUM CONTNIUES INFUSING. NO SIGNS OF REDNESS OR EDEMA TO CENTRAL LINE SITE.
--- NOTE | 2021-05-30 02:05 | NUR ---
IN ROOM TO ADMINISTER 4MG IV MORPHINE THROUGH PORT FOR 8/10 ABD PAIN. PT DENIES FURTHER NEEDS AT THIS TIME. CALL LIGHT IS CLOSE.
--- NOTE | 2021-05-30 05:53 | NUR ---
IV PUMP WAS BEEPING, NEW BAG OF LR IS NOW INFUSING. PT REPORTS ABD PAIN /. ADMINISTERED 4MG IV MORPHINE DILUTED. PT DENIES FURTHER NEEDS. CALL LIGHT IS CLOSE.
--- NOTE | 2021-05-30 09:05 | NUR ---
Patient awake watching tv, no distress. Patient reports she did not sleep well last night. Patient reports generalized pain, tolerable at this time. Ostomy bag burped by pat, scan amount of runny brown stool noted in bag. Wolf intact/patent, Urine color mostly clear yellow, small amount of sediment noted. Patient tolerating diet well.
--- NOTE | 2021-05-30 09:46 | NUR ---
IV fluids decreased to 65ml/hr per provider order.
--- NOTE | 2021-05-30 10:10 | NUR ---
mORPHINE 4MG IVP ADMIN FOR REPORTS OF 8/10 GENERALIZED PAIN.
--- NOTE | 2021-05-30 14:09 | NUR ---
Wolf catheter removed. 9ml of sterile water removed from balloon prior to removal. Catheter tip intact. Patient tolerated well. Patient now due to void.
--- NOTE | 2021-05-30 14:45 | NUR ---
Patient choked on gabapentin capsule pill. This RN assisted patient to sitting position, encouraged to cough, pt unable to clear. Dr. Nieves and Edith, rn hemodialysis charge to bedside. Oral suction provided, patient still unable to clear pill, pt gasping. RT to bedside immediately for deep suctioning. Patient able to clear pill after deep suction from RT. Patient encouraged to catch her breath and relax with head of bed elevated. This RN remained with patient for approx 15 minutes. sp02 95% on room air, respirations even and non labored. Patient able to speak with staff and drink water without difficulty. Patient encouraged to call staff if she has needs and or distress.
--- NOTE | 2021-05-30 14:50 | NUR ---
Morphine 4mg IVP admin for reports of 8/10 abd/pelvis and coughing pain.
--- NOTE | 2021-05-30 16:12 | NUR ---
Patient resting in bed, eyes closed, respirations even and non labored. Hob elevated, pt has no distress. Personal supplies and call light within reach.
--- NOTE | 2021-05-30 19:20 | NUR ---
SHIFT REPORT RECEIVED FROM DAYS LUKASZ CORBETT AT BEDSIDE. pt AWOKE TO VOICE, DENIES NEEDS OR CONCERNS. ON RA, RR EVEN AND UNLABORED. IJ RECENTLY REMOVED ON , DRESSING C/D/I. LEFT PORT-A-CATH DRESSING C/D/I, FLUIDS WITH BICARB INFUSING DIRECTED. OSTOMOY POUCH WNL, OUTPUT DARK BROWN IN COLOR. NO FURTHER NEEDS, CALL LIGHT IN REACH.
--- NOTE | 2021-05-30 20:58 | NUR ---
PT CALLED D/T BEEPING IV PUMP IT IS NOW INFUSING FINE. PT DENIES FURTHER NEEDS. CALL LIGHT IS CLOSE.
--- NOTE | 2021-05-30 21:30 | NUR ---
ASSESSMENT COMPLETE, SCHEDULED MEDS GIVEN (SEE EMAR). PO PROTONIX HELD PER MD REHMAN IT CAN NOT BE CRUSHED. PORT-A-CATH WNL, BRISK BLOOD RETURN NOTED. FLUIDS AND IV ABX INFUSING DIRECTED, DRESSING WNL. pt INCONTINENT OF URINE, MARLENA CARE DONE AND DRY ATTENDS IN PLACE. OSTOMY POUCH LEAKING, NEW OSTOMY APPLIANCE AND BAG IN PLACE WITH HELP FROM BIOSTATISTICS MANAGERLUKASZ STEWARD. SMALL SORE APPROX SIZE OF 1-1.5CM DIAMETER SORE NOTED AFTER REMOVING OLD OSTOMY APPLIANCE, pt DENIES KNOWLEDGE AND STATES, "OH MY WILL HAVE IT GOOD NEW IN A FEW DAYS". pt VERBALIZES CONSENT TO TAKE PHOTO OF SITE, PHOTOS TAKEN AND NOW IN CHART. BIOSTATISTICS MANAGERLUKASZ STEWARD ALSO VISULAIZED. NO FURTHER NEEDS, CALL LIGHT IN REACH. pt APPEARS COMFORTABLE AND RELAXED, NO VERBALIATION OF PAIN OR DISCOMFORT FROM pt AT THIS TIME. WILL MONITOR FOR CHANGES.
--- NOTE | 2021-05-30 22:10 | NUR ---
DR REHMAN CALLED, pt HAS ORDER TO CRUSH MEDS, PO PROTONIX IS EXTENDED RELEASE, UNABLE TO CRUSH. PER MD REHMAN, TELEPHONE ORDER TO HOLD EVENING DOSE.
--- NOTE | 2021-05-30 22:10 | NUR ---
IN TO GET VITALS, EMPTIED OSTOMY, PT INCONT OF URNINE, NEW ATTEND IN PLACE, OSTOMY APPLIANCE LEAKY, RN TOLD, BOOSTED IN BED, NO FURTHER NEEDS
--- NOTE | 2021-05-31 00:25 | NUR ---
SCHEDULED CARDIAC MED GIVEN, SEE EMAR. NO FURTHER NEEDS. PORT-A-CATH REMAINS WNL, FLUIDS INFUSING DIRECTED. CALL LIGHT IN REACH.
--- NOTE | 2021-05-31 01:50 | NUR ---
SPOKE TO DR REHMAN, PER DR REHMAN OKAY TO HEP LOCK PORT-A-CATH PER POLICY. COMMUNITY DEVELOPMENT OFFICER NICHELLE LIRIANO.
--- NOTE | 2021-05-31 02:04 | NUR ---
pt RESTING IN BED, EYES CLOSED. RR EVEN AND UNLABORED. NO DISTRESS NOTED. CALL LIGHT IN REACH AND BED ALARM ON FOR SAFETY. pt ABLE TO TURN IN BED AND LIFT HIPS.
--- NOTE | 2021-05-31 02:43 | NUR ---
pt HEAVILY INCONTINENT OF URINE, MARLENA CARE DONE AND DRY ATTENDS IN PLACE. pt AWOKE TO VOICE, DENIES NEEDS OR CONCERNS. NO CONCERNS OF PAIN OR NAUSEA AT THIS TIME. RR EVEN AND UNLABORED. pt BOOSTED IN BED, PILLOW UNDER RIGHT SIDE. BED ALARM ON. PORT-A-CATH DRESSING REMAINS WNL. CALL LIGHT IN REACH.
--- NOTE | 2021-05-31 06:27 | NUR ---
iv fluids complete, france flushed per policy and waited 2 minutes. am blood draw collected and sent to lab. blood collected and port-a-cath flushed and hep locked per policy. new clave in place and alcohol cap also in place. dressing c/d/i. pt denies pain, reports feeling comfortable. denies needs or concerns. bibi urena in room collecting vs and i&o's. call light in reach and bed alarm on.
--- NOTE | 2021-05-31 07:33 | NUR ---
PATIENT RESTING QUIETLY IN BED WAQTCHING TV. IN ROOM SHIFT REPORT GIVEN TO THIS RN BY LUKASZ PLEITEZ. PATIENT DENIES ANY CARE NEEDS AT THIS TIME. CALL LIGHT IS IN REACH.
--- NOTE | 2021-05-31 08:25 | NUR ---
PATIENT'S AM MEDS CRUSHED AND PUT INTO APPLESAUCE AT HER REQUEST AND SHE TOOK THENM ALL. AM ASSESSMENT AND VITAL SIGNS COMPLETE. PATIENT'S GENERALIZED PAIN IS CONTROLLED AT THIS TIME. PATIENT'S BREAKFAST WAS NOT SOFT ENOUGH TO EAT WITHOUT HER DENTURES SO A NEW SOFT TRAY WAS ORDERED AND DELIVERED AND KITCHEN INFORMED TO SEND REAL SOFT FOOD UP FOR LUNCH. CALL LIGHT IS IN REACH AND PATIENT HAS NO OTHER CARE NEEDS AT THIS TIME.
--- NOTE | 2021-05-31 09:32 | NUR ---
PATIENT IN BED RESTING AT THIS TIME. I&O'S CHARTED. ATTENDS CHECKED AND DRY. PATIENT REQUESTING PAIN MEDS FOR 8 OUT OF 10 PAIN. RN NOTIFIED. CALL LIGHT IN REACH. NO FURTHER NEEDS AT THIS TIME.
--- NOTE | 2021-05-31 10:15 | NUR ---
PRN morphine administered for 8/10 pain pt reports "all over". IV potassium infusing WNL into port. Pt states no further needs at this time.
--- NOTE | 2021-05-31 11:10 | NUR ---
PATIENT RESTING QUIETLY IN HIGHER FOWLERS POSITION, EYES ARE CLOSED, RESPIRATIONS ARE REGULAR AND EVEN, AND CALL LIGHT IS IN REACH.
--- NOTE | 2021-05-31 13:04 | NUR ---
THIS RN ASSISTED PATIENT SBA WITH FWW BACK TO BED IN SEMIFOWLERS POSITION. PATIENT HAD A WET ATTENDS WHICH WAS CHANGED DUE TO INCONTINENCE. PATIENT DENIES ANY OTHER CARE NEEDS AT THIS TIME AND HAS HER CALL LIGHT IS IN REACH.
--- NOTE | 2021-05-31 13:10 | NUR ---
1PSBA WITH FWW FROM CHAIR BACK TO BED WITH THIS RN ASSISTING PATIENT. PATIENT SAT UP INTO SEMIFOWLERS POSITION. PATIENT DENIES ANY OTHER CARE NEEDS AT THIS TIME. INCONTINENT DEPENDS WAS CHANGED PRIOR TO GETTING INTO BED. CALL LIGHT IS IN REACH.
--- NOTE | 2021-05-31 13:29 | NUR ---
PATIENT SITTING UP IN BED, VISITOR AT BEDSIDE. VITALS AND I&O'S CHARTED. CALL LIGHT IN REACH. NO FURTHER NEEDS AT THIS TIME.
--- NOTE | 2021-05-31 14:40 | NUR ---
PATIENT RESTING IN BED IN SEMIFOWLERS POSITION. PATIENT DENIES ANY CARE NEEDS AT THIS TIME. PATIENT WATCHING TV. CALL LIGHT IS IN REACH.
--- NOTE | 2021-05-31 14:55 | NUR ---
PATIENT GIVEN HER 1500 MEDS IN PUDDING AND 4MG SIVP MORPHINE FOR 8/10 GENERALIZED BODY PAIN. PIGGYBACKS ARE COMPLETE AND PORT-A-CATH FLUSHED WITH 20MLS NS AND THEN HEP LOCKED. PATIENT DENIES ANY OTHER CARE NEEDS AT THIS TIME. CALL LIGHT IS IN REACH.
--- NOTE | 2021-05-31 17:01 | NUR ---
PATIENT TAKING ALL OF HER PILLS TODAY IN APPLESAUCE OR PUDDING. PATIENT HAS NEEDED 4MG IV MORPHINE TWICE THIS SHIFT FOR GENERALIZED BODY PAIN THAT SHE CALLS FOR MEDS AT 11/18 AND THE IV MS IS EFFECTIVE. PATIENT TRYING TO INCREASE HER FOOD INTAKE TODAY EATING VERY SOFT MEALS. VS HAVE BEEN STABLE. LUNGS CLEAR WITH DEMINISHED BASES. BOWEL TONES ACTIVE AROUND HER COLOSTOMY. PATIENT WAS UP IN THE CHAIR FOR LUNCH TODAY AND HAS WALKED IN HER ROOM WITH FWW AND PT. PATIENT JUST GIVEN HER DINNER AND SHE IS SITTING UP IN BED AT THIS TIME EATING. CALL LIGHT IS IN REACH. 2 K+ RIDERS GIVEN TODAY AND ARE BOTH COMPLETE.
--- NOTE | 2021-05-31 18:42 | NUR ---
PATIENT HAD INCONT. VOID. PATIENT STOOD AT EDGE OF BED WITH FWW WHILE THIS CARTON FILLING MACHINE OPERATOR CHANGED LINENS. MARLENA CARE DONE. NEW ATTENDS IN PLACE. PATIENT BACK TO BED. VITALS AND I&O'S CHARTED. CALL LIGHT IN REACH. NO FURTHER NEEDS AT THIS TIME.
--- NOTE | 2021-05-31 19:10 | NUR ---
SHIFT REPORT RECEIVED FROM DAYSHIFT LUKASZ JACOBSON. pt AWAKE AND RESTING IN BED, WATHCING TV. LUKASZ JACOBSON PREPARING PRN PAIN MEDICATION. NO ADDITIONAL NEEDS OR CONCERNS VERBALIZED, CALL LIGHT IN REACHA ND BED ALARM ON.
--- NOTE | 2021-05-31 19:22 | NUR ---
PATIENT C/O 8/10 GENERALIZED BODY PAIN AND 4MG SIVP MORPHINE WAS GIVEN. SHIFT REPORT GIVEN TO LUKASZ PLEITEZ. PATIENT HAD NO OTHER CARE NEEDS AT THIS TIME.
--- NOTE | 2021-05-31 21:55 | NUR ---
ASSESSMENT COMPLETE, SCHEDULED MEDS GIVEN (SEE EMAR). PORT-A-CATH DRESSING WNL, BRISK BLOOD RETURN NOTED. IV ABX INFUSING DIRECTED. pt DENEIS PAIN AND NAUSEA. I&O'S COMPLETE, VSS. MEDS CRUSHED PER MD ORDERS, PER DR REHMAN-KEVIN TO HOLD SCHEDULED PORTONIX DOSE. CALL LIGHT IN REACH.
--- NOTE | 2021-05-31 22:19 | NUR ---
ICE WATER ON STYRO CUP WITH SMALL STRAW. PATIENT'S PULL UPS IS DRY THIS TIME. OSTOMY BAG'S AIR OUT. NO OTHER NEEDS AT THIS TIME. ROOM LIGHT OFF. CALL LIGHT IN HAND. SHOWED THE OVER HEAD LIGHT CONTROL ON THE CALL LIGHT.
--- NOTE | 2021-05-31 23:12 | NUR ---
IV ABX COMPLETE, PORT-A-CATH DRESSING C/D/I. BRISK BLOOD RETURN NOTED. SITE FLUSHED AND HEP LOCKED PER POLICY. pt SLEEPING IN BED WITH EYES CLOSED UPON ENTERING ROOM, RR EVEN AND UNLABORED. pt AWOKE TO VOICE, BRIEFLY DENIED NEEDS OR CONCERNS. CALL LIGHT IN REACH.
--- NOTE | 2021-06-01 00:13 | NUR ---
IN THE ROOM. CHANGED PATIENT'S INCONTINENT ATTENDS. NO OTHER NEEDS AT THIS TIME.
--- NOTE | 2021-06-01 02:10 | NUR ---
pt RESTING IN BED, EYES CLOSED. RR EVEN AND UNLABORED. NO DISTRESS NOTED. BED ALARM REMAINS ON AND CALL LIGHT IN REACH. NO DISTRESS OR S/SX OF PAIN NOTED.
--- NOTE | 2021-06-01 04:53 | NUR ---
assessment complete, prn pain medication given (see emar) for 8 pain "all over'. pt was resting in bed upon entering room, awoke to voice. vss and i&o's complete. blood draw collected and sent to lab, port positional this am. port flushed well with ns and hep locked per policy. new clave in place and alcohol cap also on. no further needs, fresh water provided. call light in reach.
--- NOTE | 2021-06-01 05:30 | NUR ---
ROUNDED ON pt AFTER PAIN MEDICATION, pt RESTING IN BED WITH EYES CLOSED. RR EVEN AND UNLABORED. NO DISTRESS NOTED, CALL LIGHT IN REACH.
--- NOTE | 2021-06-01 07:20 | NUR ---
THIS RN RECEIVED SHIFT REPORT FROM LUKASZ PLEITEZ. PATIENT RESTING QUIETLY IN SEMIFOWLERS POSITION, EYES CLOSED, RESPIRATIONS ARE REGULA AND EVEN, AND CALL LIGHT IS IN REACH. NO CURRENT CARE NEEDS NOTED.
--- NOTE | 2021-06-01 09:40 | NUR ---
AM ASSESSMENT COMPLETE AND MEDS GIVEN. PATIENT HAS C/O 8/10 GENERALIZED BODY PAIN AND 4MG SIVP MORPHINE GIVEN. AM PILLS CRUSHED AND GIVEN IN APPLESAUCE. IV ANTIBIOTICS RUNNING IN PORT-A-CATH. PATIENT WAS UNABLE TO EAT THE BREAKFAST THAT CAME UP AND THIS RN CALLED FOR YOGURT, CREAM OF WHEAT WITH BROWN SUGAR, AND BLACK HOT TEA, AND ASKED THAT THIS BE HER STANDARD BREAKFAST ORDER FROM NOW ON. PATIENT HAS NO OTHER CARE NEEDS AT THIS TIME. CALL LIGHT IS IN REACH.
--- NOTE | 2021-06-01 10:00 | NUR ---
Attempted to see pt. She asks I leave. Spouse in room and asking her to speak with me. She states she just can't asks I leave. Spouse hlelping pt with ostomy. Will check tomorrow to see if pt has any needs.
--- NOTE | 2021-06-01 10:41 | NUR ---
PATIENT'S PAIN IS BACK TO 3/10 WHICH IS HER TOLERABLE LEVEL. FAMILY IN VISITN WITH PATIENT AT THIS TIME. CALL LIGHT IS IN REACH.
--- NOTE | 2021-06-01 11:01 | NUR ---
PATIENT'S CHANGED OUT HER OSTOMY BAG AND PATIENT CHANGED A WET ATTENDS WITH ASSISTANCE FROM HER WELL. ANCA FROM [employer] PLANNING JUST FINISHED TALKING WITH THE PATIENT. PATIENT CONTINUES TO VISIT WITH HER AT THIS TIME. CALL LIGHT IS IN REACH.
--- NOTE | 2021-06-01 12:14 | NUR ---
PATIENT IS SALINE LOCKED AT THIS TIME.
--- NOTE | 2021-06-01 13:52 | NUR ---
PATIENT GETTING READY FOR PT AND WANTED PAIN MEDICATION FOR 7/10 GENERAL BODY PAIN. 4MG SIVP MS GIVEN ALONG SCHEDULED PO MEDS. ATTENDS CHANGED BY OR[employer]LE ERP DEVELOPER'S FOR INCONTINENCE. PATIENT DENIED ANY OTHER NEEDS AT THIS TIME. VS STABLE AND CALL LIGHT IS IN REACH.
--- NOTE | 2021-06-01 16:03 | NUR ---
PATIENT RESTING IN BED WATCHING A MOVIE AND FEELS PT WENT,"PRETTY GOOD", TODAY. 1600 MEDS CRUSHED IN PUDDING AND GIVEN TO PATIENT. PATIENT HAD NO OTHER CARE NEEDS AT THIS TIME. CALL LIGHT IS IN REACH.
--- NOTE | 2021-06-01 16:59 | NUR ---
THIS RN GAVE PATIENT HER 1700 TUMS. PATIENT DENIES ANY NEEDS AT THIS TIME. CALL LIGHT IS IN REACH.
--- NOTE | 2021-06-01 17:50 | NUR ---
PT AWAKE IN BED WAITING FOR DINNER TO BE DELIVERED. PT BRIEF IS DRY. PT HASN'T DRANK ANYTHING SINCE 1400. LUKASZ JACOBSON NOTIFIED. CALL LIGHT IN REACH
--- NOTE | 2021-06-01 18:34 | NUR ---
PATIENT CALLED HAVING 8/10 GENERALIZED BODY PAIN. 4MG SIVP MS GIVEN. PATIENT'S LUNGS REMAIN CLEAR, BUT DIM IN THE BASES. OSTOMY BAG STILL SECURE AND NOT LEAKING. PATIENT DENIED ANY OTHER CARE NEEDS AT THIS TIME. CALL LIGHT IS IN REACH.
--- NOTE | 2021-06-01 19:30 | NUR ---
SHIFT REPORT RECIEVED FROM INDIRA LAL. PT RESTING IN BED, EYES CLOSED. RR EVEN, UNLABORED. CALL LIGHT IN REACH.
--- NOTE | 2021-06-01 21:30 | NUR ---
ASSESSMENT, VS AND I&O COMPLETED. PT IS DROWSY. GNEREALIZED PAIN 3/10, DENIES NEED FOR MEDICATION. GCS 15, A&O X4. LUNGS CLEAR IN UPPER LOBES AND DIM IN LOWER LOBES. HEART TONES REGULAR. ABD SOFT, NONTENDER, BOWEL TONES ACTIVE. PORT WNL, CDI, FLUSHED VIGORIOUSLY AND HAS GOOD BLOOD RETURN. OSTOMY WNL. UNABLE TO VISUALIZE WOUND UNDER OSTOMY DRESSING. SCHEDULED MEDS PROVIDED. NO OTHER NEEDS. CALL LIGHT IN REACH.
--- NOTE | 2021-06-02 02:05 | NUR ---
Medicated with Morphine 4mg IV
--- NOTE | 2021-06-02 02:38 | NUR ---
BRIEFS CHANGED. ASSESSMENT COMPLETED. PORT WNL. PT PROVIDED PRN PAIN MED FOR 8/10 GENERALIZED PAIN. OSTOMY WNL. PT REPOSITIONED. LUNGS CLEAR IN UPPER LOBES AND DIM IN LOWER LOBES. NO OTHER NEEDS AT THIS TIME. CALL LIGHT IN REACH.
--- NOTE | 2021-06-02 07:29 | NUR ---
THIS RN RECEIVED SHIFT REPORT FROM LUKASZ LENZ. PATIENT RESTING QUIETLY ON HER RIGHT SIDE, EYES CLOSED, RESPIRATIONS REGULAR AND EVEN, AND CALL LIGHT IN REACH. NO CURRENT CARE NEEDS NOTED AT THIS TIME.
--- NOTE | 2021-06-02 09:21 | NUR ---
PATIENT FINISHED WITH BREAKFAST. AM VS SATBLE, BOWEL TONES ACTIVE WITH SMALL LIQUID STOOL IN OSTOMY, LUNGS CLEAR BUT DIM IN THE BASES. AM MEDS CRUSHED IN APPLESAUCE AND GIVEN. GENERALIZED PAIN 8/10 AND 4MG SIVP MS GIVEN. PATIENT DENIES ANY OTHER CARE NEEDS AT THIS TIME. CALL LIGHT IS IN REACH.
[2021-06-02] MEDS ORDERED: CIPROFLOXACIN500 MG PO (10:14)
--- NOTE | 2021-06-02 10:32 | NUR ---
PATIENT'S PAIN BACK DOWN TO HER COMFORT LEVEL OF 3/3. PATIENT HAS NO OTHER CARE NEEDS AT THIS TIME. CALL LIGHT IS IN REACH.
--- NOTE | 2021-06-02 11:13 | NUR ---
PT ASLEEP, DID NOT DISTURB. WILL CHECK AGAIN
--- NOTE | 2021-06-02 12:05 | NUR ---
PATIENT READY FOR DC. PORT-A-CATH NEEDLE DC'D AFTER BEING LOCKED UP WITH HIGH DOSE HEPLOCK FLUSH. GAUZE AND CEAR BANDAGE PLACED OVER SITE. LUKASZ AGRAWAL FROM WOUND CARE CAME DOWN TO TALK TO THE PATIENT ABOUT THE SORE SHE HAS ON HER ABD UNDER HER OSTOMY APPLIANCE. ALLEVYN SILVER DRESSING, HYDROCOLLOID DRESSING, AND ADAPT POWDER GIVEN TO PATIENT FOR WOUND CARE AT DRESSING CHANGE PATIENT DID NO WANT US TO REMOVE THE CURRENT APPLIANCE. PATIENT ASKED THAT TANJA BE CALLED BACK TO TALK TO HER WHEN HE ARRIVES. VERBAL DC AND WRITTEN DC INSTRUCTIONS AND F/U APPOINTMENT DISCUSSED WITH PATIENT AND SHE VERBALIZED UNDERSTANDING AND HAS NO OTHER CARE QUESTIONS AT THIS TIME. PATIENT IS EATING HER LUNCH AND CALL LIGHT IS IN REACH.
--- NOTE | 2021-06-02 12:45 | NUR ---
PATIENT'S IS HERE AND LUKASZ AGRAWAL HAS BEEN CALLED TO COME AND TALK WITH THE AND PATIENT. THIS RN ASKE CONCRETE INSPECTOR'S TO HELP PATIENT GET ON DRY ATTENDS. CALL LIGHT IS IN REACH.
--- NOTE | 2021-06-02 13:15 | NUR ---
PATIENT DC'D TO HOME AFTER WOUND CARE TALKED WITH PATIENT'S AND GAVE THE PATIENT SOME MORE WOUND CARE SUPPLIES. PATIENT AND HAD NO OTHER QUESTIONS BEFORE DC. THIS RN TOOK PATIENT OUT IN WC TO PRIVATE CAR TO GO HOME.
== END 2021-06-02 13:15 | disposition home or self-care (01) | DRG 872 ==
LOC: ED 03:20 → CCU 07:36 → MS 05-29 13:33
PROVIDERS: ADMIT Internal Medicine; ATTEND Internal Medicine
DX: A41.51 Sepsis due to Escherichia coli [E. coli] (principal); N13.6 Pyonephrosis; N17.9 Acute kidney failure, unspecified; E87.4 Mixed disorder of acid-base balance; E87.1 Hypo-osmolality and hyponatremia; F11.20 Opioid dependence, uncomplicated; D68.9 Coagulation defect, unspecified; R04.0 Epistaxis; Z20.822 Contact with and (suspected) exposure to COVID-19; R65.20 Severe sepsis without septic shock; E87.6 Hypokalemia; E83.42 Hypomagnesemia; I10 Essential (primary) hypertension; G89.4 Chronic pain syndrome; K21.9 Gastro-esophageal reflux disease without esophagitis; Z90.81 Acquired absence of spleen; Z86.711 Personal history of pulmonary embolism; Z87.891 Personal history of nicotine dependence; Z88.0 Allergy status to penicillin; Z88.8 Allergy status to other drugs, medicaments and biological substances; Z79.01 Long term (current) use of anticoagulants; Z79.899 Other long term (current) drug therapy
CPT/HCPCS: 31720; 36415; 36556; 36600; 51701; 71045; 71250; 74176; 80048; 80053; 81001; 82306; 82803; 83605; 83735; 83880; 84100; 84132; 85025; 85610; 86850; 86900; 86901; 87040; 87088; 92610; 96368; 97116; 97161; 97530; 99285-25; C9113; C9803; J0610; J0692; J0744; J1956; J2270; J2405; J3430; J3475; J3480; J7030; J7070; J7120; J7121; J7168; U0003

== ENCOUNTER 2021-07-04 19:13 | Inpatient (IN) | payer MEDICARE ==
[~2021-07-04] VITALS: Ht 172.7 cm; Wt 56.7 kg
--- NOTE | 2021-07-05 13:46 | EKG ---
[facility] [address] [place] [address] Signed Poor data quality, interpretation may be adversely affected Normal sinus rhythm Possible Inferior infarct , age undetermined Abnormal ECG When compared with ECG of 28-MAY-2021 03:35, Junctional rhythm has replaced Sinus rhythm Borderline criteria for Inferior infarct are now present Nonspecific T wave abnormality, worse in Anterior leads Confirmed by ILYA REHMAN MD ([id number]) on 07/05/2021 1:45:54 PM Electronically Signed By: ILYA REHMAN MD 07/05/21 1346 PATIENT NAME: MACKENZIE HARTLEY Electrocardiogram DATE OF : 55 PHYSICIAN: ILYA REHMAN MD REPORT #: [id number] REPORT IS CONFIDENTIAL AND NOT TO BE RELEASED WITHOUT AUTHORIZATION
--- NOTE | 2021-07-09 11:43 | EKG ---
[facility] [address] [facility] [place] [address] Signed Accelerated Junctional rhythm Low voltage QRS Nonspecific ST and T wave abnormality Abnormal ECG When compared with ECG of 04-JUL-2021 19:32, Junctional rhythm has replaced Sinus rhythm Confirmed by LIYA REHMAN MD ([id number]) on 07/09/2021 11:43:24 AM Electronically Signed By: ILYA REHMAN MD 07/09/21 1143 PATIENT NAME: MACKENZIE HARTLEY Electrocardiogram DATE OF : 55 PHYSICIAN: ILYA REHMAN MD REPORT #: [id number] REPORT IS CONFIDENTIAL AND NOT TO BE RELEASED WITHOUT AUTHORIZATION
== END 2021-07-08 13:17 | disposition swing bed (61) | DRG 871 ==
LOC: ED 19:13 → MS 21:17 → CCU 21:17 → MS 07-06 11:20
PROVIDERS: ADMIT Internal Medicine; ATTEND Internal Medicine
DX: A41.4 Sepsis due to anaerobes (principal); G93.41 Metabolic encephalopathy; N17.9 Acute kidney failure, unspecified; K50.90 Crohn's disease, unspecified, without complications; Q89.01 Asplenia (congenital); Z16.11 Resistance to penicillins; R65.20 Severe sepsis without septic shock; N30.90 Cystitis, unspecified without hematuria; E83.42 Hypomagnesemia; E87.6 Hypokalemia; E83.51 Hypocalcemia; K21.9 Gastro-esophageal reflux disease without esophagitis; Z86.718 Personal history of other venous thrombosis and embolism; Z88.0 Allergy status to penicillin; Z88.1 Allergy status to other antibiotic agents; Z88.8 Allergy status to other drugs, medicaments and biological substances
CPT/HCPCS: 36415; 51702; 71045; 80048; 80053; 81001; 82306; 82310; 82570; 83605; 83735; 84300; 84550; 85025; 85610; 87040; 87077; 87088; 87186; 93005; 93010; 94760; 96368; 97161; 99285-25; A9270; C9113; C9803; J0610; J0692; J0744; J0780; J2270; J2405; J2550; J3430; J3475; J3480; J7030; J7040; J7120; J7121; U0003

== ENCOUNTER 2021-07-08 13:18 | Inpatient (IN) | payer MEDICARE ==
[~2021-07-08] VITALS: Ht 172.7 cm; Wt 56.7 kg
--- NOTE | 2021-07-08 13:30 | NUR ---
Notified by Dr. Nieves he is considering Transitional care for this pt for IV antibiotics. I spoke with PT had pt has been difficult for PT to work with. Went to pts. room to speak with her and she has received Morphine and is sleeping. I will discuss with pt in the am need to be compliant with at least a maintenance program for PT and IV therapy to meet criterial for Transitional care.
--- NOTE | 2021-07-08 14:30 | NUR ---
PATIENT HAS BEEN SWITCHED TO SWING BED STATUS. PATIENT SAYS HER CHESAT PAIN HAS NOT GONE AWAY EVEN THOUGH SHE HAS SLEPT SEVERAL HOURS SINCE HER LAST DOSE OF MORPHINE. PATIENT RATES PAIN 6/10 AT THIS TIME IN THE LEFT CHEST WITH NO MENTIOON OF THE BACK/ABD/AND ALL OVER PAIN THAT SHE WAS EXPRESSING BEFORE WHEN GETTING IV MORPHINE. VS ARE STABLE AND PATIENT REQUESTED O2 PER NC EVEN THOUGH HER LUNGS ARE CLEAR, SHE HAS NO TACHYPNEA, AND O2 SATS ARE IN THE HIGH 90'S. PATIENT CURRENTLY EATING HER LUNCH. CALL LIGHT IS IN REACH.
--- NOTE | 2021-07-08 14:35 | NUR ---
IN THE PRESENCE OF THE PATIENTIN HER ROOM THIS RN CALLED AND LEFT A VOICEMAIL MESSAGE FOR PATIENT'S TO BRING IN HER OPIUM PAIN MEDICATION AND SAID WE COULD WORK OUT LETTING HER HAVE HER PAIN MED HERE. PATIENT SATISFIED WITH THE MESSAGE AND SAID,"MAYBE HE DIDN'T ANSWER BECAUSE HE IS TAKING A NAP". PATIENT'S CALL LIGHT IS IN REACH AND HAS NO OTHER CARE NEEDS AT THIS TIME.
--- NOTE | 2021-07-08 15:35 | NUR ---
PATIENT IS RESTING QUIETLY ON HER RIGHT SIDE AND RESPIRATIONS ARE REGULAR AND EVEN. PATIENT APPEARS TO BE SLEEPING. CALL LIGHT IS IN REACH.
--- NOTE | 2021-07-08 16:45 | NUR ---
PATIENT'S ARRIVED AND SAID HE DID NOT GET ANY MESSAGE AND HE WAS FAIRLY UPSET. I INFORMED THE I CONFIRMED THE PHONE# WITH THE PATIENT AAND CALLED AND LEFT A VOICE MESSAGE. WAS APPARENTLY EXPECTING A TEXT. HE HAD NOT CHECKED VOICE MESSAGES. VISITING IN THE ROOM AND PATIENT HAS NO CARE NEEDS AT THIS TIME. CALL LIGHT IN REACH.
--- NOTE | 2021-07-08 17:41 | NUR ---
PATIENT HAVING C/O 8/10 ALL OVER PAIN AND REQUESTING MORPHINE. PATIENT'S IS AT BEDSIDE. THIS RN GAVE 4MG SIVP MORPHINE TO PATIENT AND PATIENT REQUESTING TO GO TO [facility] NOW, BUT ASKED THIS RN TO CALL THE KITCHEN AND HAVE THEN SEND UP A VANILLA ENSURE SHAKE. CALL LIGHT IS IN REACH AND PATIENT'S IS GOING HOME AND WILL BRING IN PATIENT'S OPIUM TOMORROW.
--- NOTE | 2021-07-08 18:46 | NUR ---
PATIENT IS RESTING QUIETLY ON HER RIGHT SIDE. RESPIRATIONS ARE REGULAR AND EVEN. CALL LIGHT IS IN REACH. PATIENT HS NO CURRENT CARE NEEDS AT THIS TIME.
--- NOTE | 2021-07-08 19:30 | NUR ---
SHIFT REPORT RECEIVED FROM INDIRA LAL. PT RESTING IN BED. NO NEEDS AT THIS TIME. CALL LIGHT IN REACH.
--- NOTE | 2021-07-08 22:00 | NUR ---
ASSESSMENT COMPLETED. GCS 15, A&O X4. PORT FLUSHED, GOOD BLOOD RETURN, SCHEDULED MED PROVIDED. LUNGS CLEAR, HEART TONES IRREGULAR. ABD SOFT, TENDER, BOWEL TONES ACTIVE. OSTOMY WNL, BROWN OUTPUT. PT REPORTS NUMBNESS AND TINGLING IN FEET. CMS INTACT IN UPPER EXTREMITIES. COCCYX RED BUT BLANCHABLE. NO OTHER NEEDS AT THIS TIME. CALL LIGHT IN REACH.
--- NOTE | 2021-07-08 23:54 | NUR ---
PT RESTING IN BED, EYES CLOSED. RR EVEN, UNLABORED. CALL LIGHT IN REACH.
--- NOTE | 2021-07-09 01:36 | NUR ---
PT CALLS FOR SLEEP MED. MEDICATION TAKEN TO PT. PT REFUSES TO TAKE MED IT IS ONLY 50 MG AND NOT HER "NORMAL" 150MG. EDUCATION PROVIDED. PT STILL DECLINES MED. NO OTHER NEEDS AT THIS TIME. CALL LIGHT IN REACH.
--- NOTE | 2021-07-09 02:00 | NUR ---
PT RESTING IN BED, EYES CLOSED. RR EVEN, UNLABORED. CALL LIGHT IN REACH.
--- NOTE | 2021-07-09 03:25 | NUR ---
PATIENT CALLED C/O COLD. WARM BLANKET PROVIDED. NO OTHER NEEDS AT THIS TIME.
--- NOTE | 2021-07-09 04:00 | NUR ---
PT RESTING IN BED, EYES CLOSED. RR EVEN, UNLABORED. CALL LIGHT IN REACH.
--- NOTE | 2021-07-09 05:44 | NUR ---
PT BRIEFS CHANGED. OSTOMY AIR RELEASED. PT REPORTS 7/10 BACK PAIN, PRN PAIN MED PROVIDED. PORT WNL, SALINE LOCKED. NO OTHER NEEDS. CALL LIGHT IN REACH.
--- NOTE | 2021-07-09 06:52 | NUR ---
SCHEDULED MED PROVIDED. NO OTHER NEEDS. CALL LIGHT IN REACH.
--- NOTE | 2021-07-09 07:30 | NUR ---
Spoke with Smita. She agrees to stay for IV antibiotics and agrees to participate with PT.
--- NOTE | 2021-07-09 07:32 | NUR ---
Spoke with Smita. She will stay on our transitional Care program for 2 weeks of antibiotics and PT due to Sepsis and deconditioning. Pt cont. to live at home with her spouse who is her cg. 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 Plan for 2 wks IV antibiotics then dc to home with her spouse.
--- NOTE | 2021-07-09 07:43 | NUR ---
Bedside shift reported deferred. Patient is sleeping at this time. She is now a swing bed patient and will need to be up to the chair this AM and doing her cares as much as possible hershelf. Shift report given outside her room with the overnight stocker nurse.
--- NOTE | 2021-07-09 08:12 | NUR ---
MED REC COMPLETE
--- NOTE | 2021-07-09 08:13 | NUR ---
MED REC COMPLETE
--- NOTE | 2021-07-09 09:29 | NUR ---
Had patient empty her own ostomy, had her ambulate to the chair. She is requesting antiemetic, zofran IV given with her AM medications.
--- NOTE | 2021-07-09 09:49 | NUR ---
PATIENT STATES HER BROUGHT IN HER DENTURES. SHE WOULD LIKE TO UPGRADED TO A SOFT DIET. SHE IS NOT EATING VERY MUCH OF THE PUREED FOODS BUT SHE IS DRINKING ENSURE MILKSHAKES. SHE WOULD LIKE TO CONTINUE HAVING ENSURE WITH MEALS. SPOKE TO DR. REHMAN AND HE WILL CHANGE HER DIET.
--- NOTE | 2021-07-09 12:15 | NUR ---
PT UP TO BATHROOM CHANGED BRIEF, USED TOILET AND DID SELF OSTOMY CARE. PT IN CHAIR DOING DENTURE CARE READY FOR LUNCH. CALL LIGHT WITHIN REACH NO FURTHER ASSISTANCE NEEDED AT THIS TIME.
--- NOTE | 2021-07-09 14:23 | NUR ---
Velma HOPPER IN WITH PT-SHE WAVED AND SAID IDALIA. WILL CHECK BACK AGAIN
--- NOTE | 2021-07-09 16:53 | NUR ---
patient ambulate to the bathroom from bed, then to the chair for dinner. PM medications given.
--- NOTE | 2021-07-09 19:30 | NUR ---
SHIFT REPORT RECEIVED FROM CHRISTINE LAL. PT RESTING IN BED. NO NEEDS AT THIS TIME. CALL LIGHT IN REACH.
--- NOTE | 2021-07-09 21:30 | NUR ---
ASSESSMENT COMPLETED. GCS 15, A&O X4 BUT FORGETFUL. LUNGS CLEAR, HEART TONES REGULAR. ABD SOFT, TENDER, BOWEL TONES ACTIVE. OSTOMY WNL, BROWN OUTPUT. PT REPORTS CHRONIC NUMBNESS OF LEFT UPPER AND LOWER EXTREMITIES. CMS INTACT ON RIGHT SIDE. PORT WNL, CDI, FLUSHED WELL, GOOD BLOOD RETURN. SCHEDULED MED PROVIDED THEN HEP LOCKED. PRN SLEEP MED PROVIDED. NO OTHER NEEDS. CALL LIGHT IN REACH.
--- NOTE | 2021-07-09 21:30 | NUR ---
IN TO GET VS, PT UP TO THE TOILET TO CHANGE ATTENDS, OSTOMY IS EMPTY AND INTACT, PT BACK TO BED, AMBULATES SBA FWW, FRESH ICE CHIPS AND ICE WATER GIVEN
--- NOTE | 2021-07-10 | NUR ---
PT RESTING IN BED, EYES CLOSED. RR EVEN, UNLABORED. CALL LIGHT IN REACH.
--- NOTE | 2021-07-10 00:26 | NUR ---
IN TO CHECK ON PTs TOILETING NEEDS, PT STATES NO NEED TO GET UP TO THE TOILET, ATTENDS ARE DRY, OSTOMY HAS ONLY SMALL AMT OF STOOL AT THIS TIME NO FURTHER NEEDS
--- NOTE | 2021-07-10 01:47 | NUR ---
PT RESTING IN BED, EYES CLOSED. RR EVEN, UNLABORED. CALL LIGHT IN REACH.
--- NOTE | 2021-07-10 03:05 | NUR ---
IN TO OFFER PT TOILETING NEEDS, PT DOES NOT WANT TO GET UP AT THIS TIME, ATTENDS SEEM TO BE DRY AT THIS TIME, EXPLAINED TO PT THE IMPORTANCE OF GETTING UP TO THE BATHROOM NEEDED INSTEAD OF SITTING IN INCONTANCE, PT SEEMS TO UNDERSTAND NO FURTHER NEEDS AT THIS TIME
--- NOTE | 2021-07-10 04:44 | NUR ---
PT REPORTS 8/10 BACK PAIN, PRN PAIN MED PROVIDED, NO OTHER NEEDS. CALL LIGHT IN REACH.
--- NOTE | 2021-07-10 07:39 | NUR ---
Patient resting in bed, eyes closed, respirations even and non labored. Patient has no notable distress. Personal supplies and call light within reach.
--- NOTE | 2021-07-10 10:30 | NUR ---
Pt sleeping, not awakened.
--- NOTE | 2021-07-10 12:08 | NUR ---
Patient ambulated in hallway x1 lap, SBA with FWW. Patient tolerated amulation well. at bedside visiting. Patient reports she is doing well this afternoon, no current needs. Personal supplies and call light within reach.
--- NOTE | 2021-07-10 13:00 | NUR ---
Patient reports to this RN that her changed her ostomy appliance at this time. Per pt report, her routinely changes her appliance at baseline when she is home. Ostomy appliance is intact, new soft brown stool noted.
--- NOTE | 2021-07-10 14:06 | NUR ---
Patient ambulated in hallway with her . Patient tolerated ambulation well using FWW.
--- NOTE | 2021-07-10 14:16 | NUR ---
PATIENT SITTING UP IN BED, VITALS AND I&OS CHARTED. IN ROOM AT THIS TIME. CALL LIGHT IN EASY REACH
--- NOTE | 2021-07-10 14:30 | NUR ---
VITALS AND I&OS CHARTED. CALL LIGHT IN REACH. FRESH ICE WATER PROVIDED
--- NOTE | 2021-07-10 15:50 | NUR ---
Patient requesting her three and four pm neurontin and protonix to be given around dinner time with her other medications so she can finish her nap. No current needs.
--- NOTE | 2021-07-10 18:27 | NUR ---
Patient sitting up in chair watching tv, no distress. Patient reports her pain is tolerable. Dinner well tolerated, pt consumed 75%. No current needs. Personal supplies and call light within reach.
--- NOTE | 2021-07-10 19:46 | NUR ---
RESTING, ROOM AIR, EYES CLOSED, NO DISTRESS
--- NOTE | 2021-07-10 21:29 | NUR ---
IN ROOM TO ADMINISTERED PT'S EVENING MEDICATIONS FOR PRIMARY RN TIM. VS TAKEN AND ENTERED. PT STATES SHE WILL GET UP TO VOID WHEN HER IV ABX IS DONE. WARM BLANKETS PROVIDED AND PT DENIES FURTHER NEEDS. CALL LIGHT IS CLOSE.
--- NOTE | 2021-07-10 23:27 | NUR ---
awake, alert, independent inroom, uses walker, on room air, lungs clear sligh dim at bases, stoma patent. L portacath patent. coop with assessment. c/o abd and back pain, medicated with Morphine 6mg IV
--- NOTE | 2021-07-11 01:39 | NUR ---
RESTING, EYES CLOSED, NO DISTRESS. REPOSITIONS SELF IN BED
--- NOTE | 2021-07-11 03:35 | NUR ---
Resting, leying on her R side, no distress, eyes closed, on room air. call light and fluidsa t hands areach, continues on transitional care.
--- NOTE | 2021-07-11 05:13 | NUR ---
Pt on transitional care. Has slept well this shift. on room air. was medicated with Morphine x1 per pain. receiving home med Opium tincture scheduled dodse. alert and oriented. L portacath patent. L abd stoma patent. pt does own care. Tolerating liquids well, no emesis. independent in room uses fww.
--- NOTE | 2021-07-11 06:44 | NUR ---
PT AWAKES EASILY, C/O GENERALIZED 8/10 PAIN, MEDICATED WITH MORPHINE 4MG IV. UP TO BR INDEPENDENT FWW, EMPTIED OWN STOMA, WAS INCONTINENT OF LARGE AMOUNT OF URINE, DID OWN SKIN CARE, CLEAN ATTENDS IN PLACE. AALERT AND ORIENTED
--- NOTE | 2021-07-11 07:08 | NUR ---
Dr Toledo notified of pts getting 6mg IV at 2315. Pt slept well, stated pain was very well relieved. Pt alert and oriented, No new orders
--- NOTE | 2021-07-11 07:50 | NUR ---
Patient resting in bed, eyes closed, respirations even and non labored. No visible distress noted. Personal supplies and call light within reach.
--- NOTE | 2021-07-11 09:42 | NUR ---
Patient awake eating breakfast, no distress. Patient reports she slept well last night. Port flushed, antibiotics started per provider order. Patient reports her pain is tolerable this morning. Vital stable, afebrile. Patient has no needs. Plan of care updated with patient, pt to work with her here shortly. No needs, personal supplies and call light within reach.
--- NOTE | 2021-07-11 12:11 | NUR ---
Flexeril 5mg po admin for back spasms.
--- NOTE | 2021-07-11 15:14 | NUR ---
Patient awake watching tv, no disress. Patient denies needs. Personal supplies and call light within reach.
--- NOTE | 2021-07-11 19:19 | NUR ---
IN ROOM FOR REPORT, PT DENIES NEEDS AT THIS TIME. CALL LIGHT IS CLOSE.
--- NOTE | 2021-07-11 21:30 | NUR ---
IN TO GET VITALS, PT HAS BEEN UP TO CHANGE HER ATTENDS AND EMPTIED OSTOMY, ICE CHIPS REFILLED
--- NOTE | 2021-07-11 22:04 | NUR ---
IN ROOM TO ADMINISTER EVENING MEDICATIONS AND ASSESS PT. SHE REPORTS BACK PAIN 6/10 AND DENIES TYLELNOL. PT ASKED FOR THE FLEXERIL FOR HER BACK ALSO HER TRAZADONE FOR SLEEP. PT REPORTS CHRONIC N/T. SHE EMPTIED HER OWN OSTOMY AND CHANGED HER ATTENDS INDEPENDENTLY. PT DENIES SOB OR COUGH. PT DENIES FURTHER NEEDS AT THIS TIME. IV ABX INFUSING THROUGH PORT. CALL LIGHT IS CLOSE.
--- NOTE | 2021-07-11 23:48 | NUR ---
IV ABX COMPLETE AND LINE FLUSHED. PORT IS NOW HEPLOCKED, GOOD BLOOD RETURN. PT DENIES NEEDS, CALL LIGHT IS CLOSE.
--- NOTE | 2021-07-12 01:28 | NUR ---
PT IS RESTING WITH EYES CLOSED, RR IS EVEN AND UNLABORED. CALL LIGHT IS CLOSE.
--- NOTE | 2021-07-12 03:21 | NUR ---
PT IS RESTING WITH EYES CLOSED, RR IS EVEN AND UNLABORED. CALL LIGHT IS CLOSE.
--- NOTE | 2021-07-12 05:15 | NUR ---
PT IS RESTING WITH EYES CLOSED, RR IS EVEN AND UNLABORED. CALL LIGHT IS CLOSE.
--- NOTE | 2021-07-12 06:37 | NUR ---
IN ROOM TO DRAW PROTIME LAB FROM PORT PER POLICY. FLUSHED LINE AND WASTED 7MLS OF BLOOD BEFORE DRAW. LINE IS NOW HEPLOCKED. ADMINISTERED PROTONIX AND PT DENIES NEEDS AT THIS TIME. CALL LIGHT IS CLOSE.
--- NOTE | 2021-07-12 07:45 | NUR ---
IN TO GIVE PT 0800 MEDS, PT EASY TO WAKE WITH VERBAL STIMULI. RESPIRATIONS EVEN AND UNLABORED. PT TOOK MEDS WITHOUT ISSUES, HAS NO OTHER REQUESTS AT THIS TIME.
--- NOTE | 2021-07-12 09:00 | NUR ---
PT SITTING UP IN BED, EATING BREAKFAST AND DRINKING TEA. PT TOOK MORNING MEDS WITHOUT ISSUE. HEAD TO TOE ASSESSMENT COMPLETED WITH NO ACUTE FINDINGS. PT REPORTS SOME MILD NAUSEA, DOES NOT REQUEST ANY MEDS AT THIS TME.
--- NOTE | 2021-07-12 11:00 | NUR ---
ANTIBIOTICS COMPLETED, PORT FLUSHED WITH 20ML NS. BLOOD RETURN NOTED. PT CHANGING CHUX PAD ON BED, IS AMBULATORY TO BATHROOM WITH WALKER, ATTENDS CHANGED. PT HAS NO OTHER NEEDS OR REQUESTS AT THIS TIME.
--- NOTE | 2021-07-12 12:30 | NUR ---
PT GIVEN TINCTURE DOSE, STATES IT "TASTES TERRIBLE". PT AMBULATORY AROUND ROOM, REPORTS SHE IS READY FOR SOME LUNCH. PT ALERT, ORIENTED, AND STABLE. NO OTHER REQUESTS OR NEEDS AT THIS TIME.
--- NOTE | 2021-07-12 13:16 | NUR ---
Pt's BP rechecked and remains 85/45, Dr Toledo notified and patient encouraged to drink PO fluids. Pt is asymptomatic and ambulatory in room. Pt endorses discomfort and has questions about flexeril, pt counseled and primary RN notified.
--- NOTE | 2021-07-12 14:08 | NUR ---
IN TO CHECK ON PT WHO REQUESTS AND IS GIVEN PRN FLEXERIL. PT ALSO REQUESTING TO HAVE HER FLEXERIL DOSE IN CREASED AND "GIVE ME MY MORPHINE BACK". EXPLAINED TO THE PT THAT THE MD HAS MADE NO CHANGES TO HER MEDICAIONS AT THIS TIME. PT REQUESTED AND GIVEN GOWN TO USE ROBE, SO SHE CAN GO FOR A WALK WITH HER WHO IS HERE VISITING. PT HAS NO OTHER REQUESTS OR CONCERNS AT THIS TIME.
--- NOTE | 2021-07-12 15:36 | NUR ---
IN TO GIVE PT AFTERNOON MEDS. PT SITTING UP IN BED, TALKING WITH HER WHO HAS BEEN HERE MOST OF THE AFTERNOON. PT IS IN [employer] AND TAKES HER MEDS WITH EASE. PT'S LEFT AND THE PT APPEARED TO WANT COMPANY. THIS RN SAT WITH PT VISITING, UNTIL SHE STATED SHE WAS TIRED. PT HAS NO OTHER REQUESTS AT THIS TIME.
--- NOTE | 2021-07-12 17:29 | NUR ---
IN TO GIVE PT HER TINCTURE AND TUMS PRIOR TO DINNER. PT SITTING UP IN BED, REQUESTS ANOTHER FLEXERIL SOON IT IS AVAILABLE. REMINDED PT THAT THIS MED IS Q6, PT AGREEABLE TO THIS. PT HAS NO OTHER REQUESTS OR NEEDS AT THIS TIME.
--- NOTE | 2021-07-12 19:20 | NUR ---
RECIEVED REPORT FROM FELECIA LAL. PATIENT IS ON SWING BED STATUS. PT IS RESTING ON BED AT THIS TIME DENIES NEEDS. PER FELECIA PT HAS BEEN CLEANING HERSELF AND HER OSTOMY AND APPLYING HER ATTENDS.
--- NOTE | 2021-07-12 19:44 | NUR ---
PT INFORMED DUERING VITALS CHECK THAT I WILL BRING HER MEDS IN CLOSER TO 2100 WHEN THEY ARE DUE. VERBALIZED UNDERSTANDING.
--- NOTE | 2021-07-12 19:47 | NUR ---
PT ASKING IF [facility] HAS ANY PILLS DUE YET TOLD HER NOT UNITL 2100 AND i WILL BE IN WITH HER MEDICATIONS. REFRESHED HER WATER, PER HER REQUEST ONE CUP OF ICE ONE CUP OF ICE WATER.
--- NOTE | 2021-07-12 20:48 | NUR ---
IN ROOM TO START PATIENT'S CIPRO IV, AND GIVE HER 2100 MEDS. PATIENT WOULD LIKE HER "SLEEPING PILLS" AND OFFERED TO BRING THEM WHEN HER CIPRO FINISHES IN ONE HOUR PT OK WITH THIS. DENIES NEEDING ANYTHING ELSE.
--- NOTE | 2021-07-12 22:00 | NUR ---
PT MEDICATED WITH TRAZADONE PRN AND HER FLEXERIL 5MG TO HELP WITH PAIN AND SLEEP. HER IMPLANTED PORT HAS BEEN FLUSHED WITH NORMAL SALINE 10 ML, AND THEN HEP LOCKED, SEE EMAR. PT IS IN THE PROCESS OF GETTING UP TO USE RESTROOM AT THIS TIME DENIES NEEDING ASSISTANCE.
--- NOTE | 2021-07-13 02:11 | NUR ---
CHECKED ON PATIENT, SHE APPEARS TO BE ASLEEP EYES ARE CLOSED, VISULAIZED RISE AND FALL OF CHEST. CALL LIGHT IN REACH.
--- NOTE | 2021-07-13 05:13 | NUR ---
PT REMAINS ASLEEP, ON HER RIGHT SIDE IN BED. RESPIRATIONS VISUALIZED, CALL LIGHT IN REACH.
--- NOTE | 2021-07-13 06:06 | NUR ---
went into patient room to obtain vitals and offer medication, patient requests the flexeril as she can have it at this time. patient is drinking some water. wants to go back to sleep for "a bit" denies needing anything else at this time. informed her she was not due for her opium tincture until 0800.
--- NOTE | 2021-07-13 08:14 | NUR ---
awakes easily. on room air, coop witj assessment. up to br w/o help fww, does own care, incotinent of urine, changed attends, did own colostomy care. opium tincture given as scheduled per back and generalized pain. L port patent.
--- NOTE | 2021-07-13 10:00 | NUR ---
Attempted to see pt, she is sleeping.
--- NOTE | 2021-07-13 10:57 | NUR ---
PATIENT IN BED RESTING WITH EYES CLOSED. CALL LIGHT IN REACH. NO FURTHER NEEDS AT THIS TIME.
--- NOTE | 2021-07-13 13:49 | NUR ---
pt ambulating hallways well, no c/o pain, tolerated well, on room air, independent fww
--- NOTE | 2021-07-13 14:37 | NUR ---
pt c/o muscle spasms, medicated with flexeril 5mg po and gabapentin 1500 dosage given earlier on her requests "Javier going to sleep and do not want to be waken up."
--- NOTE | 2021-07-13 16:51 | NUR ---
Warfarin 1mg po given as per RX, pt awake sitting in bed, awake, c/o back pain. will medicated with scheduled opium tincture. tolerating liquids well
--- NOTE | 2021-07-13 18:31 | NUR ---
PT HAS SLEPT OFF AND ON THIS SHIFT, WALKED HALLWAYS DOWN AND UP, AND BACK TO BED, TOLERATED WELL. ON ROOM AIR. HAS L LEONCIOH, PATENT, NO C/O ADVERSE REACTION TO IV ABX. DOES HER OWN STOMA CARE. HAS BEEN MEDICATED WITH FLEXERIL PER BACK SPASMS X1, EFFECTIVE. RECEIVING SCHEDULED OPIUM TINCTURE ORDERED. USES CALL LIGHT. TOLERATING LIQUIDS WELL ON TRANSITIONAL CARE
--- NOTE | 2021-07-13 19:51 | NUR ---
REPORT RECEIVED FROM DAY SHIFT RN. PT LYING IN BED ALERT AND ORIENTED. DENIES NEEDS. WHITE BOARD UPDATED. CALL LIGHT IN REACH.
--- NOTE | 2021-07-13 22:08 | NUR ---
EVENING ASSESSMENT COMPLETE. SCHEDULED MEDS ADMINISTERED PER EMAR. IV ABX INFUSING WNL. PORT FLUSHED PER PROTOCOL. BRISK BLOOD RETURN NOTED. PT DOING OWN OSTOMY AND INCONTINENT CARE. SUPPLIES AT BEDSIDE. JELLO PROVIDED. PT DENIES FURTHER NEEDS AT THIS TIME. CALL LIGHT IN REACH.
--- NOTE | 2021-07-13 23:05 | NUR ---
WOKE PT UP TO GIVE THE FLEXERIL SHE REQUESTED, WELL TO HEPARIN HER PORT. NO OTHER NEEDS AT THIS TIME. ALL LIGHTS OFF.
--- NOTE | 2021-07-14 01:07 | NUR ---
PT RESTING IN BED WITH EYES CLOSED. RESPIRATIONS EVEN. CALL LIGHT IN REACH.
--- NOTE | 2021-07-14 02:15 | NUR ---
ANSWERED CALL LIGHT. PATIENT WANTING TO WALK TO THE BATHROOM. TRIED SEVERAL TIMES TO STAND UP AND STATED I FEEL DIZZY. THIS DINKEY OPERATOR SLAG OFFERED BEDSIDE COMMODE. PATIENT EMPTIED THE OSTOMY. PULL UP CHANGED INCONTINENT. PATIENT IS BACK IN BED. ICE AND ICE WATER PROVIDED. NO OTHER NEEDS AT THIS TIME.
--- NOTE | 2021-07-14 05:04 | NUR ---
PT RESTING IN BED WITH EYES CLOSED. RESPIRATIONS EVEN. CALL LIGHT IN REACH.
--- NOTE | 2021-07-14 06:07 | NUR ---
MORNING LABS DRAWN FROM PORT PER PROTOCOL. PT DROWSY. AWAKENS EASILY AND THEN QUICKLY DRIFTS BACK TO SLEEP. DENIES NEEDS AT THIS TIME. CALL LIGHT IN REACH.
--- NOTE | 2021-07-14 08:15 | NUR ---
sitting edge of bed, medicated with opium tincture at her requests scheduled.
--- NOTE | 2021-07-14 10:27 | NUR ---
medicated with 5mg flexeril per c/o back spasms, sitting in bed watching tv, coop with assessment. on room air, clear lungs, does own stoma care. was incontient of urine earlier and she does her own care.
--- NOTE | 2021-07-14 11:08 | NUR ---
PATIENT HAD LARGE INCONT. PATIENT UP TO BATHROOM, SBA FWW. MARLENA CARE DONE. OSTOMY CHECKED AND DOES NOT NEED EMPTIED. LINENS CHANGED. PATIENT BACK TO BED, SBA FWW. VITALS AND I&O'S CHARTED. FRESH WATER GIVEN. CALL LIGHT IN REACH. NO FURTHER NEEDS AT THIS TIME.
--- NOTE | 2021-07-14 12:07 | NUR ---
PATIENT GIVEN 0.8MG OF OPIUM TINCTURE SCHEDULED. PATIENT REPORTS PAIN IS 5/10.
--- NOTE | 2021-07-14 13:35 | NUR ---
PATIENT IN BED RESTING WITH EYES CLOSED. I&O'S CHARTED. CALL LIGHT IN REACH. NO FURTHER NEEDS AT THIS TIME.
--- NOTE | 2021-07-14 13:45 | NUR ---
resating, iin bed, room air, eyes closed, no distress, cll light and fluids at bedside, does own stoma care
--- NOTE | 2021-07-14 15:38 | NUR ---
PT WALKING HALLWAYS WITH PT, STATED THAT SHE HAS HEARTBURN. MAALOX CONTRAINDICATED DUE TO GABAPENTIN/MAGNESIUM INTERACTION, NOTIFIED. NEW ORDERS OBTAINED, SEE EMAR. PT NOTIFIED
--- NOTE | 2021-07-14 15:43 | NUR ---
WALKED WITH 5# WEIGHT INDEPENDENT/FWW WITH PT, TOLERATED WELL.
--- NOTE | 2021-07-14 15:57 | NUR ---
PT RECEIVED PEPCID 1X OREDER PER NEW ORDERS PER UPSET STOMACH. SITTING EDGE OF BED, ROOM AIR.
--- NOTE | 2021-07-14 17:39 | NUR ---
PATIENT GIVEN TUMS AND OPIUM TINCTURE.
--- NOTE | 2021-07-14 18:23 | NUR ---
PATIENT IN BED RESTING AT THIS TIME. I&O'S CHARTED. PATIENT IND. IN ROOM. CALL LIGHT IN REACH. NO FURTHER NEEDS AT THIS TIME.
--- NOTE | 2021-07-14 19:30 | NUR ---
REPORT RECEIVED FROM DAY SHIFT RN. PT LYING IN BED RESTING WITH EYES CLOSED. RESPIRATIONS EVEN. CALL LIGHT IN REACH.
--- NOTE | 2021-07-14 22:10 | NUR ---
ASSISTED PRIMARY RN JAYLEEN. PATIENT REQUESTED TO THIS LATHE SETUP OPERATOR TO STAND BY WHILE SHE GETTING UP DUE TO SHE FEELS DIZZY. BEDSIDE COMMODE OFFERED. CHANGED INCONTINENT PULL UP. PATIENT SELF EMPTIED HER OSTOMY BAG. CHANGED BED LINEN GOT WET FROM URINE INCONTINENT. PATIENT IS BACK IN BED. WARM BLANKET, ICE AND ICE WATER PROVIDED. NO OTHER CARE NEEDS AT THIS TIME.
--- NOTE | 2021-07-14 22:44 | NUR ---
EVENING ASSESSMENT COMPLETE. SCHEDULED MEDS ADMINISTERED PER EMAR. PRN FOR SLEEP ADMIN PER REQUEST. PORT FLUSHED PER PROTOCOL. BLOOD RETURN NOTED. DRESSING INTACT. IV ABX INFUSING WNL. PT INCONTINENT OF URINE. UP TO BSC WITH SBA. PT REPORTS FEELING DIZZY WITH TRANSFER. PT ABLE TO DO OWN MARLENA/OSTOMY CARE. BACK TO BED, MARIUSZ WELL. FRESH ICE AND WATER PROVIDED. PT DENIES QUESTIONS OR CONCNERNS. CALL LIGHT IN REACH.
--- NOTE | 2021-07-14 23:25 | NUR ---
IV ABX COMPLETE. PORT PULSATIVE FLUSH. HEP LOCK PER PROTOCOL. PT RESTING WITH EYES CLOSED. AWAKENS BRIEFLY THEN DRIFTS BACK TO SLEEP.
--- NOTE | 2021-07-15 01:59 | NUR ---
PT RESTING IN BED WITH EYES CLOSED. RESPIRATIONS EVEN. CALL LIGHT IN REACH.
--- NOTE | 2021-07-15 03:24 | NUR ---
CALL LIGHT ANSWERED. PT INCONTINENT OF LARGE AMOUNT OF URINE. LINENS WET. UP TO BSC TO DO OWN MARLENA CARE AND BURP OSTOMY. LINENS CHANGED. BACK TO BED. PT DENIES FEELING DIZZY WITH TRANSFER, JUST "SO TIRED" FRESH WATER AND ICE PROVIDED. NO FURTHER NEEDS AT THIS TIME. CALL LIGHT IN REACH.
--- NOTE | 2021-07-15 06:35 | NUR ---
PT AWAKENED FOR MORNING MEDS. DENIES FURTHER NEEDS. QUICKLY DRIFTS BACK TO SLEEP. CALL LIGHT IN REACH.
--- NOTE | 2021-07-15 08:25 | NUR ---
PT TRANSITIONAL CARE STATUS. ON ROOM AIR, CLEAR LUNGS, L PORTACATH PATENT, WILL CHANGE DRESSING TODAY. L STOMA PATENT. PT DOES OWN CARE, WEARS ATTENDS , SHE DOES HER OWN CARE. UP TO BR INDEPENDENT W FWW. RECEIVED OPIUM TINCTURE PER GENERALIZED AND BACK PAIN. NO OTHER REQUESTS. USES CALL LIGHT, FREESH FLUIDS AT BEDSIDE
--- NOTE | 2021-07-15 09:27 | NUR ---
LEFT CHEST PORT HEP LOCKED NOW.
--- NOTE | 2021-07-15 11:00 | NUR ---
Spoke with Smita. She states she is doing well. Denies c/o. She is bored. Gave word search booklet. She declines coloring book and pencils. Plans on dc on Tuesday. Updated Dr. Bowens.
--- NOTE | 2021-07-15 11:14 | NUR ---
PT IN BED WATCHING TV, NO FURTHER C/O PAIN OR DISCOMFORT. CALL LIGHT AT HANDS REACH. EMPTIED OWN STOMA, CHANGED OWN ATTENDS
--- NOTE | 2021-07-15 12:27 | NUR ---
PT EATING [employer] THAT BROUGHT IN. MEDICATED WITH SCHEDULED OPIUM TINCTURE. NO OTHER C/O
--- NOTE | 2021-07-15 12:28 | NUR ---
REASSESSING ORAL PAIN, PT IN CHAIR, EATING SOFT DIABETIC DIET. TOLERATING WELL, STATED 'THE GEL IT HELPED MY PAIN'. IVF INFUSING
--- NOTE | 2021-07-15 14:08 | NUR ---
visiting with , sitting edge of bed, no c/o pain. uses call light
--- NOTE | 2021-07-15 14:23 | NUR ---
PT IN BR-SPOUSE IN RM. WILL CHECK BACK AGAIN
--- NOTE | 2021-07-15 15:23 | NUR ---
PT IN BED, ROOM AIR, WALKED HALLWAYS WITH , TOLERATED WELL, BACKA TO BED. C/O BACK SPASMS, MEDICATED WITH SCHEDULED OPIUM TINCTURE, GABAPENTIN AND PRN FLEXERIL 5MG PO. REPOSITIONS SELF IN BED, DOES OWN CARE
--- NOTE | 2021-07-15 18:11 | NUR ---
Pt continues on Transition care Status. On room air, L portacath in place, patent. L stoma patent. Pt does own care. Was incontinent of urine X1, independent in room, uses BR, tolerating diet and fluids well. Walked with PT and with , tolerated well. Has been medicated with scheduled Opium Tincture and with PRN Flexeril per back pain, effective. flat affect, pleasant, follows instructions. Uses call light.
--- NOTE | 2021-07-15 19:00 | NUR ---
SHIFT REPORT RECEIVED FROM DAYSHIFT RN TIM AT BEDSIDE. pt AWAKE AND RESTING IN BED. LEFT PORT-A-CATH HEP LOCKED PER SHIFT REPORT. NO NEEDS VERBALIZED, CALL LIGHT IN REACH AND BORAD UPDATED.
--- NOTE | 2021-07-15 22:45 | NUR ---
PT UP TO THE TOILET, CHANGED ATTENDS, BACK TO BED, VS AND I&Os CHARTED FOR RN, NO FURTHER NEEDS AT THIS TIME
--- NOTE | 2021-07-15 23:13 | NUR ---
ASSESSMENT COMPLETE, SCHEDULED MEDS GIVEN ALONG WITH PRN SLEEP AID, SEE EMAR. pt REPORTS TOLERABLE 5/10 PAIN, GENERALIZED AND CHRONIC. MEDS GIVEN WITHOUT ISSUE. VSS, pt ON RA. RR EVEN AND UNLABORED. LEFT PORT-A-CATH DRESSING CHANGED RECENTLY BY EVAN ALLISON. DRESSING C/D/I, BRISK BLOOD RETURN NOTED WITH pt LAYING ON LEFT SIDE. IV ABX INFUSING DIRECTED. NO FURTHER NEEDS, CALL LIGHT IN REACH.
--- NOTE | 2021-07-16 00:11 | NUR ---
IV PUMP ALARMING, IV ABX COMPLETE. NEW CLAVE IN PLACE TO PORT-A-CATH. BLOOD RETURN NOTED AND PORT-A-CATH FLUSHED WITH NORMAL SALINE AND HEP LOCKED PER POLICY. NO FURTHER NEEDS, CALL LIGHT POORNIMA BARONE.
--- NOTE | 2021-07-16 02:35 | NUR ---
ROUNDED ON pt, pt ASKING "WAS THERE A LOUD CRASH". pt REASSURED, THOUGHT THAT pt HEARD [facility] DOORS OPENING D/T IMAGING. pt DENIES NEEDS OR CONCERNS. ABLE TO CHANGE POSITIONS ON OWN, CALL LIGHT IN REACH. LEFT PORT-A-CATH WNL, SAMANTHA HEP LOCKED AND DRESSING C/D/I.
--- NOTE | 2021-07-16 04:15 | NUR ---
PT REQUESTING THIS FOLDING MACHINE FEEDER BY NAME, IN TO CHECK ON PTs NEEDS, PT WANTED NEW CHUX AND DRAW SHEET ON BED, DUE TO INCONT EPISODE, PT UP TO THE BATHROOM TO CHANGE ATTENDS AND DO OSTOMY CARE BY SELF, PROVIDED ICE CHIPS AND SOME WATER, EMPITED TRASH CANS, NO FURTHER NEEDS AT THIS TIME
--- NOTE | 2021-07-16 06:31 | NUR ---
scheduled po protonix given, see emar. no issues swallowing noted. scheduled am labs collected from left port-a-cath, brisk blood return noted. port-a-cath saline flushed and hep locked per policy. new clave in place and alcohol caps x2 in place. no further needs, call light in reach.
--- NOTE | 2021-07-16 08:05 | NUR ---
RT COLLECTED RAPID COVID 19 SWAB WITH NO COMPLICATIONS AT THIS TIME.
--- NOTE | 2021-07-16 09:30 | NUR ---
REPORT RECEIVED FROM NIGHT RN AND PT. CARE RESUMED. PT. IS ALERT AND ORIENTED TO ALL. PORT ACCESSED, FLUSHES WELL AND RETURNS BLOOD. IV ABX INFUSING. SHE DENIES PAIN AT THIS TIME. COLOSTOMY APPLIANCE INTACT AND PT. REFUSES EMPTYING. DISCUSSED POC, SAFETY, AND MEDS. LEFT RESTING WITH CALL LIGHT IN REACH.
--- NOTE | 2021-07-16 09:50 | NUR ---
Attended MDT meeting with care team today, provided Smita with activities of crossword puzzle wich she states is her favorite activity. Offered a regular puzzle which Smita denied. She does already have a word search book that was given to her a couple of days ago, she has been working in the word search, but per her statement, she prefers the cross word puzzle. Smita has no other requests for activities at this time.
--- NOTE | 2021-07-16 12:11 | NUR ---
RECEIVED REPORT FROM RN AND ASSUMED ALL CARE FOR THIS SHIFT. MET WITH PT. IN HER ROOM, AT THE BEDSIDE TALKING AND EATING LUNCH WITH THE PATIENT. DENIES PAIN, CONCERNS OR NEEDS AT THIS TIME. WILL CALL FOR NEEDS. GAVE PO OPIUM MED WHICH WAS DUE. CALL MARTI AT SIDE. RESTING IN BED.
--- NOTE | 2021-07-16 15:51 | NUR ---
PT. RESTING IN BED, DOING CROSSWORD PUZZLES, FLEXERIL HAD BEEN GIVEN FOR BACK PAIN AND STATES SHE WOULD LIKE TO REST NOW. ATE PIZZA WITH HER FOR LUNCH, ADEQUATE LIQUIDS. SHE IS INDEPENDENT IN OSTOMY CARE. SOMETIMES INCONTINENT OF URINE. PORT ACCESS, CAPPED AND DRESSING CHANGED YESTERDAY. PLAN DC FOR 07/19 MOST LIKELY HOME.
--- NOTE | 2021-07-16 17:10 | NUR ---
RN ROUNDED ON PT. IN ROOM , SHE WAS OOB TO BR FOR OSTOMY CARE. AMBULATING INDEPENDENTLY IN ROOM AND WAS STEADY. WORKED WITH PT TODAY AND AMBULATED 220 FT WITH SBA. COVID NEGATIVE RESULTS TODAY, PT 15.3, INR 1.24, COUMADIN 3 MG PO TODAY. HX OF LE DVT'S. PLEASANT, COOPERATIVE, FLEXERIL PRN CHRONIC BACK PAIN NEEDS AND THIS WAS GIVEN AT 1507. SHE ALSO TAKES OPIUM ELIXIR AT SCHEDULED TIMES.
--- NOTE | 2021-07-16 19:25 | NUR ---
SHIFT REPORT RECEIVED FROM DAYSHIFT RN LINDA AT BEDSIDE. pt AWAKE AND RESTING IN BED, INDEPENDENT IN ROOM. BOARD UPDATED AND CALL LIGHT IN REACH.
--- NOTE | 2021-07-16 21:50 | NUR ---
IN TGO GET VITALS, PT UP TO BATHROOM, INCONT ATTENDS, EMPTIED OSTOMY, NEW GOWN, NEW CHUX, NO FURTHER NEEDS AT THIS TIME
--- NOTE | 2021-07-16 22:42 | NUR ---
ASSESSMENT COMPLETE, SCHEDULED MEDS GIVEN (SEE EMAR). pt REPORTS TOLERABLE PAIN, DENIES NAUSEA. PORT-A-CATH WNL, BRISK BLOOD RETURN NOTED. IV ABX INFUSING DIRECTED. VSS AND I&O'S COMPLETED BY CONTINUOUS YARN DYEING MACHINE OPERATOR. NO FURTHER NEEDS, CALL LIGHT IN REACH.
--- NOTE | 2021-07-16 23:42 | NUR ---
ROUNDED ON pt, IV ABX COMPLETE. PORT-A-CATH FLUSHED PER POLICY AND HEP LOCKED PER POLICY. BRISK BLOOD RETURN NOTED. NEW ALCOHOL CAPS X2 IN PLACE. NO FURTHER NEEDS, CALL LIGHT IN REACH.
--- NOTE | 2021-07-17 01:07 | NUR ---
pt RESTING IN BED, ON RA. RR EVEN AND UNLABORED. NO DISTRESS NOTED. CALL LIGHT REMAINS IN REACH.
--- NOTE | 2021-07-17 02:48 | NUR ---
ROUNDED ON pt, pt RESTING IN BED WITH EYES CLOSED. RR EVEN AND UNLABORED, NO DISTRESS NOTED. CALL LIGHT IN REACH, NO DISTRESS NOTED. WILL MONITOR FOR CHANGES.
--- NOTE | 2021-07-17 03:30 | NUR ---
IN TO CHECK ON PT PER RNs REQUEST, PT DOESNT NEED TO GET UP AT THIS TIME, ATTEND ARE DRY, FRESH ICE CHIPS PROVIDED, PT FALLS BACK ASLEEP, CALL LIGHT IN REACH
--- NOTE | 2021-07-17 06:27 | NUR ---
IN ROOM TO ROUND ON pt, pt DROWSY AND RESTING QUIETLY IN BED. UP TO VOID, INCONTINENT OF URINE. WHILE AMBULATING TO BATHROOM, pt BEGAN VOIDING AND LEAKING UNTO FLOOR. TIMO SANDOVAL ALSO IN ROOM, ASSISTING pt. MARLENA CARE DONE AND DRY ATTENDS IN PLACE. I&O'S COMPLETE. SCHEDULED PROTONIX GIVEN, SEE EMAR. FRESH WATER PROVIDED. NO FURTHER NEEDS OR CONCERNS VERBALIZED. CALL LIGHT IN REACH.
--- NOTE | 2021-07-17 07:35 | NUR ---
REPORT RECIEVED FROM APPLIANCE SERVICE TECHNICIAN RN, PT AWAKE IN BED WACTHING TV, DENIES ANY NEEDS AT THE MOMENT CALL LIGHT WITHIN REACH.
--- NOTE | 2021-07-17 08:25 | NUR ---
RN IN IN ROOM TO MORNING ASSESSMENT AND MEDICATIONS, PT AWAKE AND ALERT, SITTING IN BED STATES SHE WILL GET UP TO THE CHAIR WHEN BREAKFAST TRAY GET DELIVERED, REQUESTING PRN FLEXERIL. NO OTHER NEEDS AT THE MOMENT
--- NOTE | 2021-07-17 10:02 | NUR ---
Paitent is resting. director of student affairs asked misbah if wanted a shower and andersont refused.
--- NOTE | 2021-07-17 12:15 | NUR ---
RN IN ROOM TO DO 1200 OPIUM, PT AWAKE AND ALERT SITTING IN BED EATING LUNCH, FRESH ICE WATER PROVIDED, DENIES ANY OTHER NEEDS AT THE MOMENT.
--- NOTE | 2021-07-17 14:18 | NUR ---
PATIENT AND HER ARE VISITING. SHE IS GOING HOME TOMORROW. THEY BOTH SHARE THE COOKING AT HOME. MACKENZIE SAID FOOD JUST DOESN'T TASTE GOOD ANYMORE AND SHE IS CONCERNED ABOUT GETTING ENOUGH CALORIES. I PROVIDED THEM WITH A FOLDER WITH HIGH-CALORIE HIGH-PROTEIN INFORMATION. I SUGGESTED ADDING CHEESE TO EGGS OR VEGGIES, CREAM AND/OR PEANUT BUTTER TO OATMEAL, AND USING MORE AVOCADO. THEY DO USE AVOCADO ALREADY BECAUSE IT IS A HEALTHY ITEM. SHE LIKED THE SUGGESTION OF TUNA [employer] WITH [place]. I ALSO PROVIDED RECIPES FOR SMOOTHIES OR SHAKES SHE CAN MAKE TO DO SOMETHING DIFFERENT THAN ENSURE. SHE DOES DRINK ENSURE WHEN SHE NEEDS TO BUT ITS NOT HER FAVORITE. SHE APPRECIATED MY TIME AND SUGGESTIONS. MY NAME AND OFFICE # ARE PROVIDED IN CASE SHE HAS OTHER NUTRITION QUESTIONS.
--- NOTE | 2021-07-17 14:45 | NUR ---
PT REQUESTING MEDS FOR NAUSEA, STATES SHE WANTS PHENEGRAN, ZOFRAN DOESNT WORK.
--- NOTE | 2021-07-17 16:06 | NUR ---
PT REPORTS SHE IS STILL HAVING NAUSEA, PRN ZOFRAN GIVEN STATES SHE WANTS TO HOLD OFF ON TAKING SCHEDULED MEDICATIONS.
--- NOTE | 2021-07-17 17:18 | NUR ---
PT CONTINUES TO REPORT NAUSEA, PRN COMPAZINE PROVIDED, PT ABLE TO TOLERATE TAKING ORAL MEDICATIONS, DINNER TRAY DELIVERED.
--- NOTE | 2021-07-17 20:15 | NUR ---
in to get vitals, pt up to the toilet, back to bed, rn in
--- NOTE | 2021-07-18 00:47 | NUR ---
HAS BEEN SLEEPING SOUNDLY FOR LAST SEVERAL HOURS. DOES NOT AWAKEN WHEN NURSE WALKS INTO ROOM FOR ROUNDING.
--- NOTE | 2021-07-18 02:11 | NUR ---
UP TO BR. WAS INCONTINENT AND HAD A SOAKED ATTENDS AND WET BEDDING AND WAS ALSO CONTINENT ONCE TO TOLIET. PERFORMED OWN TOLIET HYGIENE. NO ASSISTANCE NEEDED WITH AMBULATION OR GETTING IN OR OOB HOWEVER PT DID HOLD ONTO FURNITURE AND FLORES SHE AMBULATED. REQUESTED TEA AND TRAZADONE ONCE BACK TO BED. DENIED ANY UNMET NEEDS.
--- NOTE | 2021-07-18 05:20 | NUR ---
IN TO GET VITALS, FRESH ICE WATER GIVEN
--- NOTE | 2021-07-18 06:16 | NUR ---
Had an uneventful night. Appears to have slept well. Manages her ostomy without assistance.
--- NOTE | 2021-07-18 06:55 | NUR ---
BEDSIDE HANDOFF REPORT RECEIVED FROM FORMING TUBE SELECTOR RN. PT WANDERING IN PRYOR WITH NURSING SCHEDULER.
--- NOTE | 2021-07-18 07:00 | NUR ---
HANDOFF REPORT RECEIVED FROM ALUMNI COORDINATOR RN. PT SLEEPING, REQUESTED TO BE UNDISTURBED UNTIL 0900.
--- NOTE | 2021-07-18 07:15 | NUR ---
Patient up to the bathroom, independently in his room. Oxygen at 2L BNC, shift report completed
--- NOTE | 2021-07-18 08:35 | NUR ---
Assessment completed, VS repeated, SBP now 150s vs 170s. Oxy saturation 92% on 2L. VeraPEP completed. Per patient is able to cough up phelgm now.
--- NOTE | 2021-07-18 09:15 | NUR ---
PT RESTING IN BED. PT ALERT AND ORIENTED. PT DENIES PAIN. PT ON ROOM AIR, LUNG SOUNDS CLEAR. PT DENIES NAUSEA, BOWEL TONES ACTIVE, BREAKFAST AT BEDSIDE. CMS INTACT, WITHOUT EDEMA, DENIES NUMBNESS OR TINGLING. PT ANTICIPATING DC TODAY. VSS. PORT FLUSHED, WITH BLOOD RETURN IV CIPRO INFUSION STARTED. DISCUSSED PLAN OF CARE. PT REQUESTING DIFLUCAN FOR VAGINAL ITCHING, WILL DISCUSS WITH MD PRIOR TO DISCHARGE. MEDICATIONS ADMINISTERED PER EMAR. PT DENIES OTHER NEEDS AT THIS TIME.
--- NOTE | 2021-07-18 11:05 | NUR ---
LEFT CHEST PORT FLUSHED WITH 20ML SALINE AND 500 UNITS HEPARIN PER PROTOCOL, PORT DEACCESSED. WITHOUT S/S OF INFECTION, NEEDLE INTACT. SITE COVERED WITH BANDAGE.
--- NOTE | 2021-07-18 11:14 | NUR ---
DISCHARGE INSTRUCTIONS REVIEWED WITH PT. PT TO CALL ON TUESDAY TO MAKE FOLLOW UP APPOINTMENT WITH PCP AND TO HAVE COUMADIN LEVELS CHECKED ON TUESDAY , PT VERBALIZES UNDERSTANDING. MEDICATIONS REVIEWED. ATTEMPTED TO CALL TO NOTIFY OF DISCHARGE, MESSAGE LEFT TO RETURN CALL.
== END 2021-07-18 12:01 | disposition home or self-care (01) | DRG 872 ==
LOC: MS 13:18
PROVIDERS: ADMIT Internal Medicine; ATTEND Internal Medicine
DX: A41.4 Sepsis due to anaerobes (principal); K50.90 Crohn's disease, unspecified, without complications; Q89.01 Asplenia (congenital); N39.0 Urinary tract infection, site not specified; R65.20 Severe sepsis without septic shock; B96.1 Klebsiella pneumoniae [K. pneumoniae] as the cause of diseases classified elsewhere; Z86.711 Personal history of pulmonary embolism; G89.4 Chronic pain syndrome; Z20.822 Contact with and (suspected) exposure to COVID-19; I10 Essential (primary) hypertension; Z88.5 Allergy status to narcotic agent; Z88.0 Allergy status to penicillin; Z88.1 Allergy status to other antibiotic agents; Z88.8 Allergy status to other drugs, medicaments and biological substances; Z90.49 Acquired absence of other specified parts of digestive tract; Z93.3 Colostomy status; F51.04 Psychophysiologic insomnia
CPT/HCPCS: 36415; 80048; 85610; 97110; 97116; 97162; 97165; 97530; A9270; C9803; J0744; J0780; J2270; J2405; J2550; U0003

== ENCOUNTER 2021-09-02 23:25 | Inpatient (IN) | payer MEDICARE ==
[~2021-09-02] VITALS: Ht 172.7 cm; Wt 53.5 kg
--- NOTE | 2021-09-03 02:30 | NUR ---
PT BROUGHT TO THE CCU BY LUKASZ CEJA AND LUKASZ TAO ON IVF AND IV MAGNESIUM AT 0110. PT ALERT AND ORIENTED UPON ARRIVAL, BELONGINGS BROUGHT WITH PT. PT TRANSFERRED TO THE CCU BED. VITALS TAKEN AT THIS TIME. PT IV NS COMPLETED SHORTLY AFTER, ORDERED IVF STARTED AND NOW INFUSING ORDERED INTO PT'S PORT ALONG WITH IV MAGNESIUM. PT HISTORY OBTAINED AND ASSESSMENT COMPLETED AT THIS TIME. PT ALERT AND ORIENTED X4, HEART RYTHM REGULAR, LUNGS CLEAR, PT DENIES SHORTNESS OF BREATH, BOWEL TONES ACTIVE, COLOSTOMY BAG AND SITE C/D/I. PULSES STRONG, PT REPORTS BASELINE NEUROPATHY IN EXTREMITIES. SKIN INTACT, RASH NOTED ON ON CHEST/UNDER RIGHT BREAST WHICH PT STATES APPEARED A FEW DAYS AGO. PT NOTED TO BE INCONTINENT OF URINE, PERICARE DONE AND NEW ATTENDS IN PLACE. NORMAL SALINE BOLUS COMPLETED AFTERWARDS, PT ALSO STARTED ON ORDERED NS + 40 KCL. PT REPORTS NO FURTHER NEEDS AFTERWARDS AND IS NOW RESTING, WILL CONTINUE PLAN OF CARE. CALL LIGHT WITHIN REACH.
--- NOTE | 2021-09-03 03:33 | NUR ---
PT SLEEPING AT THIS TIME AND WAS NOTED TO OCCASSIONALY DESATUREATE TO 86-88%. PT PLACED ON 2L O2 NC. PT AWOKE DURING THIS TIME AND STATED HER CHRONIC NECK AND BACK PAIN WERE AT 8/10. PT REQUESTED 4MG PRN MORPHINE. PRN MORPHINE ADMINISTERED TO PT. PT REPORTS NO FURTHER NEEDS AND RETURNED BACK TO SLEEP AFTERWARDS. IVF AND IV MAGNESIUM INFUSING, CALL LIGHT WITHIN REACH, WILL CONTINUE PLAN OF CARE.
--- NOTE | 2021-09-03 04:30 | NUR ---
PT'S IV MAGNESIUM COMPLETED AT THIS TIME. PT AWOKE DURING THIS TIME, VITALS TAKEN. PT REMAINS ON 2L O2 NC, PT DENIES SHORTNESS OF BREATH, SPO2 93-96%. PT REPORTS NO NEEDS AT THIS TIME, CALL LIGHT IN REACH, WILL CONTINUE PLAN OF CARE.
--- NOTE | 2021-09-03 04:35 | NUR ---
DR. REHMAN NOTIFIED OF PT'S VITALS REGARDING PT'S BLOOD PRESSURE IN THE 80'S SYSTOLIC AND MAPS 62-67. NEW ORDERS GIVEN TO PLACE MEEHAN CATHETER TO MONITOR URINE OUTPUT AND TO INCREASE PT'S NS+40K TO 200 MLS/HR. WILL CONTINUE PLAN OF CARE.
--- NOTE | 2021-09-03 05:05 | NUR ---
PT LAYING IN BED SLEEPING AT THIS TIME, ON 2L O2 NC, IVF INFUSING. RATE ON IVF INCREASED TO 200CC'S PER ORDER. PT AWOKE EASILEY AT THIS TIME AND WAS INFORMED THAT A MEEHAN WOULD BE PLACED, PT AGREEABLE TO MEEHAN. PT NOTED TO BE INCONTINENT, PERICARE DONE, ATTENDS CONTAINED 103MLS AFTER BEING WEIGHED. MEEHAN PLACED, STERILE PROCEDURE FOLLOWED, RN MARCIAL IN TO ASSIST. 120 ML OF CONCENTRATED, CLOUDY, URINE OBTAINED AFTER PLACING MEEHAN. PT TOLERATED INSERTION. PT ASSESSMENT THEN COMPLETED (SEE CHART). PT PROVIDED WITH ICE WATER AT THIS TIME AND REPORTS NO FURTHER NEEDS. CALL LIGHT WITHIN REACH, WILL CONTINUE PLAN OF CARE.
--- NOTE | 2021-09-03 06:03 | NUR ---
PT LAYING IN BED SLEEPING. PT ON 2L O2 NC, IVF INFUSING ORDERED. PT MEEHAN EMPTIED AT THIS TIME OF 38ML OF CLOUDY CONCENTRATED URINE. PT IN NO APPARENT DISTRESS AT THIS TIME, NO NEEDS ASSESSED, WILL CONTINUE PLAN OF CARE.
--- NOTE | 2021-09-03 07:40 | NUR ---
REPORT RECEIVED FROM NIGHT RN AND PT. CARE RESUMED. PT. IS RESTING WITH BLANKET OVER HER HEAD. SHE REPORTS BEING TIRED. IVF INFUSING AND RESPIRATIONS ARE EVEN AND UNLABORED. PT. LEFT RESTING.
--- NOTE | 2021-09-03 08:20 | NUR ---
PT. USED CALL LIGHT APPROPRIATELY FOR PAIN MEDICATION. SHE C/O CHRONIC BACK PAIN. ADMIN. MORPHINE IVP. PHARMACY CALLED FOR MORE IVF. 02 SAT. IS 100% ON 2L NC. PT. TAKEN OFF OF O2 AND O2 SAT REMAINED GREATER THAN 95%. PT. IS TOLERATING CLEAR LIQUID BREAKFAST. SHE IS ALERT AND ORIENTED. URINE IN MEEHAN IS CLOUDY WITH SEDIMENT. OSTOMY BAG HAS A MODERATE AMOUNT OF LIQUID BROWN STOOL. SHE REFUSES TO HAVE BAG EMPTIED AT THIS TIME. 125ML EMPTIED FROM CATH. ASSESSMENT COMPLETED. DISCUSSED PAIN MANAGEMENT, SAFETY. LEFT RESTING WITH CALL LIGHT INREACH.
--- NOTE | 2021-09-03 08:31 | NUR ---
MED REC COMPLETE
--- NOTE | 2021-09-03 08:34 | NUR ---
IVF ADMIN. AND INFUSING. PORT CATH HAS BRISK BLOOD RETURN AND FLUSHES EASILY. PT. ASSISTED WITH REPOSITIONING AND LEFT RESTING WITH CALL LIGHT IN REACH.
--- NOTE | 2021-09-03 09:02 | NUR ---
CATHETER EMPTIED OF 45ML OF CLOUDY YELLOW URINE. PT. BROUGHT WATER AND DENIES FURTHER NEEDS. LEFT RESTING WITH CALL LIGHT IN REACH.
--- NOTE | 2021-09-03 09:25 | NUR ---
Attempted to see pt for assessment. She is sleeping and does not awaken to voice. Will return later or call her spouse.
--- NOTE | 2021-09-03 10:50 | NUR ---
PT. C/O BACKPAIN. SHE DOES NOT HAVE HOME PAIN MED WITH HER, ORDERED. UPDATED AND PRN MORPHINE ORDERED. MORPHINE ADMIN. PT. IS ALERT AND ORIENTED. CATHETER EMPTIED OF 30ML OF CLOUDY URINE. DISCUSSED NPO STATUS UNTIL IMAGING DONE. PT. LEFT RESTING WITH CALL LIGHT IN REACH.
--- NOTE | 2021-09-03 11:34 | NUR ---
CRITICAL LAB VALUE FOR CALCIUM REPORTED TO MD BY TANK FARM GAUGER.
--- NOTE | 2021-09-03 12:37 | NUR ---
PT IS ALERT AND ORIENTED UP IN BED. ADMINISTERED POTASSIUM AND 1 UNIT INSULIN, PT TOLERATED WELL. PT IS RESTING IN BED WITH AND DAUGHTER AT BEDSIDE. AWAITING GI COCKTAIL VERIFICATION FOR ADMINISTRATION FOR PT HEARTBURN AND STOMACH PAIN. CALL LIGHT WITHIN REACH, WILL CONTINUE TO MONITOR.
--- NOTE | 2021-09-03 12:45 | NUR ---
NEW IV STARTED IN LEFT AC BY CHARGE AFTER 2 ATTEMPTS. FLUSHES WELL. IV FLUIDS INFUSING. OSTOMY EMPTIED OF 150ML BY STUDENT RN. CATHETER EMPTIED OF 125ML OF LIGHT YELLOW CLOUDY URINE. PT. DENIES FURTHER NEEDS. LEFT RESTING WITH CALL LIGHT IN REACH.
--- NOTE | 2021-09-03 13:14 | NUR ---
PT. LEFT WITH IMAGING STAFF, DEVELOPMENTAL SPECIALIST AND STUDENT RN. CALLED AND GAVE APPROVAL FOR DEVELOPMENTAL SPECIALIST TO REMAIN WITH PT. DURING IMAGING. PT. SHE LEFT ON CARDIAC AND 02 MONITOR WITH IV MEDS INFUSING.
--- NOTE | 2021-09-03 14:06 | NUR ---
PT REPORTS 8/10 BACK PAIN, PRN PAIN MED PROVIDED. PORT WNL, CDI. LFA IV WNL, CDI. NO OTHER NEEDS AT THIS TIME. CALL LIGHT IN REACH.
--- NOTE | 2021-09-03 14:15 | NUR ---
PT. STATES SHE IS FEELING BETTER AFTER RECEIVING IV MORPHINE FOR BACK PAIN. CATHETER EMPTIED OF 110 ML OF LIGHT YELLOW CLOUDY URINE. PT. BROUGHT JELLO AND LEFT RESTING WITH CALL LIGHT IN REACH.
--- NOTE | 2021-09-03 15:49 | NUR ---
IV SITE WNL AND FLUSHES WELL. IV POTASSIUM INFUSING. PT. DENIES PAIN AT THIS TIME. SHE WAS ABLE TO TAKE P.O. MEDS WELL. DENIES FURTHER NEEDS. LEFT RESTING WITH CALL LIGHT IN REACH.
--- NOTE | 2021-09-03 17:30 | NUR ---
PT. BROUGHT A CLEARS TRAY. FAMILY IN THE ROOM AT BEDSIDE. PT. DENIES FURTHER NEEDS.
--- NOTE | 2021-09-03 18:20 | NUR ---
PT. ASSISTED WITH EMPTYING OSTOMY BAG. 150ML EMPTIED. PT. ASSISTED WITH REPOSITIONING AND FAMILY AT BEDSIDE.
--- NOTE | 2021-09-03 20:45 | NUR ---
IN CLOSE PTs CURTAIN, TURN LIGHT OUT, NO FURTHER NEEDS AT TIME TIME
--- NOTE | 2021-09-03 21:15 | NUR ---
PATIENT PROVIDED WITH EVENING MEDS PER ORDER. REPORTS PAIN 8/10 IN HER BACK AND REQUEST PRN PAIN MEDS. OFFERED WARM PACK, PATIENT DECLINED. PRN MEDS TO BE GIVEN AT NEXT AVAILABLILITY. PATIENT VERBALIZED UNDERSTANDING. PATIENT TAKES MEDS WITH PUDDING PER REQUEST. NO OBVIOUS CONCERNS SWALLOWING MEDS; PATIENT REPORTS "THEY WENT DOWN OKAY". PATIENT DENIES NAUSEA. TOLERATING ROOM AIR. OUTPUT QS. VS STABLE. ALLOWED PATIENT TO REST.
--- NOTE | 2021-09-03 21:45 | NUR ---
IN TO GET VITALS, MEEHAN EMPTIED, PT DECLINED MEEHAN CARE AT THIS TIME, OSTOMY IS CLEAR AT THIS TIME, ICE CHIPS PROVIDED
--- NOTE | 2021-09-03 22:07 | NUR ---
PATIENT PROVIDED WITH PRN PAIN MEDS FOR 9/10 BACK PAIN. PATIENT RESTING IN BED WATCHING TV. APPEARS CALM. AAOX4. IV FLUIDS INFUSING PER ORDER; PORT SITE WNL. PATIENT DENIED FURTHER NEEDS. CALL LIGHT IN REACH.
--- NOTE | 2021-09-03 22:30 | NUR ---
PATIENT RESTING IN BED EYES CLOSED. RR 15. CALL LIGHT IN REACH.
--- NOTE | 2021-09-04 00:39 | NUR ---
PATIENT RESTING WITH EYES CLOSED. RR 14. CALL LIGHT IN REACH. IV FLUIDS PER ORDER, PORT SITE WNL.
--- NOTE | 2021-09-04 03:00 | NUR ---
THIS RN IN TO SEE PATIENT. PATIENT RESTING WITH EYES CLOSED. RR 16. CALL LIGHT IN REACH. GOOD URINE OUTPUT NOTED IN MEEHAN. ALLOWED PATIENT TO REST.
--- NOTE | 2021-09-04 04:15 | NUR ---
PATIENT WOKE AND FELT COLD, WARM BLANKET PROVIDED BY EARLY INTERVENTION SPECIALIST. PATIENT MOANING AND REPORTING 10/10 BACK PAIN. PRN MORPHINE PROVIDED. PO CALCIUM TABS REORDERED TO COMPLETE 4 DOSES; PATIENT TOOK PROVIDED MEDS. NO OTHER NEEDS AT THIS TIME.
--- NOTE | 2021-09-04 04:20 | NUR ---
PT IS AWAKE, REQUESTING TO BE COVERED UP, ICE CHIPS, PT THEN REQUEST FOR RN TO PROVIDE MEDICATION, NO FURTHER NEEDS
--- NOTE | 2021-09-04 05:30 | NUR ---
PATIENT REQUEST 2 PERSON ASSIST TO REPOSITION. THIS RN IN ROOM TO ENCOURAGE PATIENT TO REPOSITION HERSELF CAPABLE. PATIENT REQUIRED LIGHT ASSISTANCE TO POSITION FOR COMFORT ON HER RIGHT SIDE. LINTER TENDER IN TO COMPLETE VS AND EMPTY COLOSTOMY.
--- NOTE | 2021-09-04 05:30 | NUR ---
IN TO ASSIST PT WITH TURNING, VITALS, OSTOMY AND MEEHAN EMPTIED, ICE CHIPS PROVIDED, NO FURTHER NEEDS AT THIS TIME
--- NOTE | 2021-09-04 06:15 | NUR ---
LABS DRAWN FROM PORT. IV FLUIDS STOPPED 5 MINS. LABS DRAWN, 6 ML WASTE. NEW HUB PLACED. PRN PAIN MEDS. PATIENT RESTING. DENIES NEEDS; CALL LIGHT IN REACH.
--- NOTE | 2021-09-04 07:29 | NUR ---
REPORT RECEIVED FROM NIGHT RN ANASTACIA - PT AWAKE IN BED RESTING, CALL LIGHT IN REACH. DENIES NEEDS AT THIS TIME.
--- NOTE | 2021-09-04 08:10 | NUR ---
RN IN ROOM TO ADMINISTER IV MAG INFUSION. PORT FLUSHES WIHTOUT DIFFICULTY. PT DENIES NEEDS, RESTING IN BED WATCHING TV. CALL LIGHT IN REACH.
--- NOTE | 2021-09-04 08:50 | NUR ---
Spoke with Smita, she states no changes since last admission. Denies need for resources or DME. States she has a UTI and is very weak with it. Plans on dc to home on discharge. Pt waves me out of the room when I attempt to ask further questions.
--- NOTE | 2021-09-04 09:19 | NUR ---
pt is laying in bed. got pt warm blanket. i&o and vs charted call light within reach no further tasks at this time
--- NOTE | 2021-09-04 11:46 | NUR ---
PT LAYING IN BED, WATCHING TV. LUKASZ CORBETT IN CARING FOR PT. GAVE GREETING, PT WAVED AND ACKNOWLEDGED I WAS PRESENT. GAVE BLESSING AND WILL FOLLOW
--- NOTE | 2021-09-04 11:56 | NUR ---
RN IN ROOM TO ADMINISTER SCHEDULED MEDICATIONS - PT RESTING IN BED AWAKE UPON ENTRY WATCHING TV. MEEHAN DC'D BY STUDENT NURSE WITH RN SUPERVISION - PT TOLERATED WITHOUT DIFFICULTY. PERIPHERAL IV DC'D R/T UNABLE TO FLUSH WITHOUT LEAKING FROM INSERTION SITE. PT TOLERATED ORAL MEDICATIONS WITHOUT DIFFICULTY. CALL LIGHT IN REACH - DENIES FURTHER NEEDS.
--- NOTE | 2021-09-04 12:48 | NUR ---
RN SPOKE TO PHARMACY CONFIRMING VITAMIN D CAN BE HELD TILL 1500 MED PASS - PT DID NOT WANT TO BE "WATER LOGGED" WITH EARLIER MEDS ADMINISTERED.
--- NOTE | 2021-09-04 13:49 | NUR ---
rn in room to administer prn morphine per pt request. states pain is 9/10 - resting in bed watching tv with no sign of distress. pt denies further needs. call light in reach.
--- NOTE | 2021-09-04 14:46 | NUR ---
RN IN ROOM TO ADMINISTER SCHEDULED MEDICATIONS AND ASSESS. PT RESTING AWAKE IN BED UPON ENTRY. PT TOLERATES ORAL MEDICATION WITHOUT DIFFICULTY. ASSESSMENT UNCHANGED FROM PREVIOUS - PT EMOTIONAL REGARDING INTERACTION WITH HER DAUGHTER YESTERDAY WHEN IN CCU. STATES HER IS NOT VISITING TODAY BECAUSE THEY ARE HOSTING AN OPEN HOUSE. TEARY WHEN TALKING ABOUT HER CHRONIC HEALTH AND DECLINE.
--- NOTE | 2021-09-04 16:29 | NUR ---
rn in room to administer scheduled meds and prn pain med as requested. in room upon entering. pt noted to be in tense conversation with . pt behavior escelating while rn in room.
--- NOTE | 2021-09-04 16:32 | NUR ---
SWALLOW EVALUATION ATTEMPTED; PT REFUSED EVALUATION AT THIS TIME.
--- NOTE | 2021-09-04 18:46 | NUR ---
RN IN ROOM TO ADMINISTER SCHEDULED MEDS AND PRN MORPHINE PER PT REQUEST. PT STATES SHE IS UPSET BY HER HUSBANDS VISIT AND NATURE OF CONVERSATION. PT TOLERATES ORAL MEDS WITHOUT DIFFICULTY - PT PERFERS TO SPLIT THEM HERSELF. PT CONTINUES TO REST IN BED WATCHING TV. CALL LIGHT IN REACH.
--- NOTE | 2021-09-04 20:03 | NUR ---
RECEIVED REPORT FROM DAY SHIFT RN. PATIENT IS RESTING IN BED DOING A PUZZLE. NO NEEDS NOTED. CALL LIGHT IN REACH.
--- NOTE | 2021-09-04 20:45 | NUR ---
IN TO GET VITALS, PT REQUESTING MEDS, RN IN ROOM NOW, ASSISTED PT WITH REPOSITIONING TO LEFT SIDE, (PILLOW UNDER R SIDE), ICE CHIPS PROVIDED, NO PT IS DRY AT THIS TIME, OSTOMY IS NOT IN NEED OF EMPTING
--- NOTE | 2021-09-04 21:45 | NUR ---
PATIENT ASSESMENT COMPLETED. PATIENTS VITALS TAKEN AND RECORDED BY MOTORCYCLE MECHANIC APPRENTICE. PATIENTS ATTEND IS DRY. PATIENT RATES PAIN AT A 9/10, PRN PAIN MEDICATION GIVEN PER ORDER. PATIENTS PM MEDICATIONS GIVEN PER ORDER. PATIENT REPOSITIONED IN BED. ICE CHIPS PROVIDED. PATIENT IS TEARFUL, SUPPORT PROVIDED. PATIENT DENIES ANY FURTHER NEEDS. CALL LIGHT IN REACH.
--- NOTE | 2021-09-04 22:56 | NUR ---
PATIENT IS RESTING IN BED WITH EYES CLOSED, RR 17. CALL LIGHT IN REACH.
--- NOTE | 2021-09-04 23:45 | NUR ---
IN TO ASSIST RN WITH CARES, PT INCONT, ASSIST PT WITH NEW ATTENDS, NO FURTHER NEEDS
--- NOTE | 2021-09-04 23:52 | NUR ---
PATIENT IS RESTING IN BED. PATIENT REPOSITIONED IN BED. IV INFUSING PER ORDER. PATIENT RATES PAIN AT A 7/10, PRN PAIN MEDICATION GIVEN PER ORDER. NO FURTHER NEEDS NOTED. CALL LIGHT IN REACH.
--- NOTE | 2021-09-05 01:20 | NUR ---
PATIENTS IV ABX COMPLETED INFUSING. PATIENT IS RESTING IN BED WATCHING TV. PATIENT DENIES ANY NEEDS. CALL LIGHT IN REACH.
--- NOTE | 2021-09-05 02:50 | NUR ---
PATIENT IS RESTING IN BED WITH EYES CLSOED, RR 16. CALL LIGHT IN REACH.
--- NOTE | 2021-09-05 04:35 | NUR ---
IV INFUSING PER ORDER. PATIENT IS RESTING IN BED WITH EYES CLOSED, RR 16. CALL LIGHT IN REACH.
--- NOTE | 2021-09-05 05:34 | NUR ---
PATIENTS ATTEND CHANGED. VITALS TAKEN AND RECORDED. OSTOMY IS EMPTY AT THIS TIME. AM MEDS GIVEN PER ORDER. PATIENT RATES PAIN AT AN 8/10, PRN PAIN MEDICATION GIVEN PER ORDER. FRESH ICE CHIPS PROVIDED. BLLOD DRAWN FROM PORT FOLLOWS: PAUSED IV FLUIDS FOR 10MIN, WASTED 15ML OF BLOOD, BLOOD DRAWN AND PLACED IN APPROP TUBES, FLUSHED PORT WITH 10ML SALINE, IV INFUSING PER ORDER. PATIENT DENIES ANY FURTHER NEEDS. CALL LIGHT IN REACH.
--- NOTE | 2021-09-05 05:40 | NUR ---
critical lab value received from Gloria in the lab-- calcium 5.7. will notify primary RN
--- NOTE | 2021-09-05 07:30 | NUR ---
THIS RN RECEIVED SHIFT REPORT FROM LUKASZ DANG. PATIENT RESTING QUIETLY ON HER LEFT SIDE IN BED, EYES CLOSED, RESPIRATIONS ARE REGULAR AND EVEN, AND CALL LIGHT IS IN REACH. PATIENT HAS NO NURSING CARE NEEDS AT THIS TIME.
--- NOTE | 2021-09-05 09:04 | NUR ---
THIS RN IN TO SEE PATIENT AND AM ASSESSMENT COMPLETE. PATIENT UPSET AND TALKING ABOUT ARGUMENTS SHE HAD WITH HER FAMILY YESTERDAY. PATIENT VERY SHARP WITH THIS RN IN HER SPEECH TOWARDS ME. PATIENT APOLOGIZED FOR BEING SHORT WITH ME. AM BREAKFAST TRAYS HAVE STIL NOT ARRIVED AND PATIENT IS HUNGRY. TRIED TO OFFER PATIENT THINGS I HAVE AVAILABLE ON THE UNIT AND PATIENT DECLINED. PATIENT ALSO REFUSED HER TUMS THIS AM AND DENIED THE NEED FOR NAUSEA NAD PAIN MEDICATION AT THIS TIME. CALL LIGHT IS IN REACH AND PATIENT HAS NO CARE NEEDS AT THIS TIME.
--- NOTE | 2021-09-05 10:34 | NUR ---
PATIENT CALLED FOR NAUSEA AND BACK/ABD/EVERYWHERE PAIN OF 8/10. 4MG SIVP MORPHINE GIVEN AFTER 4MG SIVP ZOFRAN GIVEN. PATIENT INFORMED THIS RN THE ZOFRAN WOULD NOT WORK AND THIS RN INFORMED PATIENT PER THE ORDERS I NEED TO TRY THE ZOFRAN 1ST BEFORE THE PHENERGAN. INFORMED PATIENT TO CALL IN 20 MINUTES IF NAUSEA WAS NOT BETTER AND PATIENT VERBALIZED UNDERSTANDING THIS PLAN. PATIENT ATE 80% OF HER BREAKFAST. CALL LIGHT IS IN REACH AND PATIENT HAS NO OTHER CARE NEEDS FROM THIS RN AT THIS TIME.
--- NOTE | 2021-09-05 10:56 | NUR ---
PATIENT IN BED WATCHING TV. VITALS AND I&O'S CHARTED. PATIENT HAD INCONT. VOID. MARLENA CARE DONE. NEW ATTENDS IN PLACE. PATIENT DID OSTOMY CARE. PATIENT REQUESTING JOE WALTON RN NOTIFIED. CALL LIGHT IN REACH. NO FURTHER NEEDS AT THIS TIME.
--- NOTE | 2021-09-05 11:09 | NUR ---
PATIENT CALLED AND SAID THE ZOFRAN WAS NOT WORKING FOR HER NAUSEA AND REQUESTED A FULL DOSE OF HER PHENERGAN. 25MG SIVP PEHNERGAN GIVEN IN 20MLS NS THOUGHT PATIENT'S INDWELLING PORT WHICH IS ACCESSED AND HAS HER MAINLINE FLUIDS RUNNING IN IT. 20MLS NS FLUSHED BEHIND THE PHENERGAN. PATIENT DENIED ANY OTHER NEEDS AT THIS TIME. CALL LIGHT IS IN REACH.
--- NOTE | 2021-09-05 11:28 | NUR ---
JUST ASKED THIS NURSE TO TRY AND GET PATIENT UP TO WALK. INFORMED THIS RN WOULD TRY TO DO THAT. HAD NO OTHER ORDERS FOR THIS RN AT THIS TIME.
--- NOTE | 2021-09-05 12:11 | NUR ---
PATIENT RESTING IN BED WATCHING TV AND EATING HER LUNCH. PATIENT HAS NO CURRENT CARE NEEDS FORIS RN AT THIS TIME. CALL LIGHT IS IN REACH.
--- NOTE | 2021-09-05 12:45 | NUR ---
PATIENT DECLINED TO TAKE HER TUMS AT THIS TIME. CALL LIGHT IS IN REACH. PATIENT HAS NO OTHER CARE NEEDS AT THIS TIME.
--- NOTE | 2021-09-05 12:51 | NUR ---
PATIENT CALLED BECAUSE HER IV PUMP WAS BEEPING. THIS RN WENT IN AND CLEARED THE ALARM. PATIENT DENIES PAIN AND NAUSEA AT THIS TIME AND HAS EATEN 75% OF HER LUNCH AND HAD THIS RN TAKE THE TRAY OUT. PATIENT DENIED ANY OTHER CARE NEEDS AT THIS TIME. CALL LIGHT IS IN REACH.
--- NOTE | 2021-09-05 13:23 | NUR ---
PATIENT RESTING QUIETLY, EYES CLOSED, RESPIRATIONS ARE REGULAR AND EVEN, PATIENT DID NOT WANT TO BE DISTURBED IF ASLEEP. CALL LIGHT IN REACH. PATIENT HAS NO CURRENT CARE NEEDS AT THIS TIME.
--- NOTE | 2021-09-05 16:00 | NUR ---
THIS RN CAME IN TO GIVE MEDS. PATIENT HAS C/O EVERYWHERE HURTING 10/18. TIMO PEREZ HAS BEEN IN THE ROOM CHANGING PATIENT'S WET ATTENDS PATIENT WILL NOT CALL WHEN SHE IS WET. 4MG SIVP MORPHINE GIVEN AND PATIENT DENIES NAUSEA. PATIENT HAD ASKED TO NOT BE DISTURBED WHILE SLEEPING AND SHE SAYS,"I SLEPT SO GOOD FOR A FEW HOURS". PM ASSESSMENT COMPLETE AND PATIENT DENIES ANY CARE NEEDS. CALL LIGHT IS IN REACH. PATIENT HAS NOT WANTED TO GET UP TO WALK.
--- NOTE | 2021-09-05 16:24 | NUR ---
THIS RN WENT IN TO TALK WITH PATIENT ABOUT HER TUMS ORDER AGAIN SHE HAS REFUSED 3 OF THE DOSES SCHEDULED. INFORMED PATIENT SHE SHOULD REALLY TRY TO TAKE THE MEDICATION HER CALCIUM LEVEL STILL REMAINS LOW. PATIENT WAS NOT HAPPY ABOUT DOING IT, BUT AGREED TO TAKE THE 1645 DOSE WHICH SHE CRUSHED AND ATE IN [place].
--- NOTE | 2021-09-05 17:32 | NUR ---
PATIENT HAS NOT WANTED TO GET UP TODAY AND REMAINS INCONTINENT OF URINE, WHICH SHE HAS BEEN CHANGED MULTIPLE TIMES FOR THIS SHIFT AND URINE OUTPUT HAS BEEN QUANTITY SUFFICIENT. PATIENT'S LUNGS ARE CLEAR, BUT DIM THOUGHOUT. D5LR CONTINUES TO RUN AT 65MLS/HR IN PATIENT'S IMPLANTED PORT. PATIENT HAS BEEN GIVEN IV MORPHINE TWICE SO FAR THIS SHIFT WHICH RELIEVES HER 7-8/10 EVERYWHERE PAIN DOWN TO 2-3/10 PAIN WHERE SHE IS COMFORTABLE. ZOFRAN GIVEN EARLY IN THE SHIFT WAS NOT EFFECTIVE IN GETTING RID OF PATIENT'S NAUSEA, BUT A 25MG IV DOSE OF PHENERGAN A SHORT TIME LATER WAS EFFECTIVE AND ALLOWED PATIENT TO SLEEP AWHILE. PATIENT CURRENTLY RESTING QUIETLY IN BED, EYES CLOSED, RESPIRATIONS ARE REGULAR AND EVEN, AND CALL LIGHT IS IN REACH. PATIENT HAS NO CURRENT CARE NEEDS AT THIS TIME.
--- NOTE | 2021-09-05 17:59 | NUR ---
PATIENT IN BED RESTING AT THIS TIME. VITALS AND I&O'S CHARTED. OSTOMY CHECKED AND EMPTY. CALL LIGHT IN REACH. NO FURTHER NEEDS AT THIS TIME.
--- NOTE | 2021-09-05 18:49 | NUR ---
PATIENT CALLED THIS CERTIFIED NEURODIAGNOSTIC TECHNOLOGIST IN TO CHANGE ATTENDS. LARGE INCONT. VOID. MARLENA CARE DONE. NEW ATTENDS AND ERMA IN PLACE. OSTOMY EMPTIED AND CLEANED BY PATIENT. CALL LIGHT IN REACH. NO FURTHER NEEDS AT THIS TIME.
--- NOTE | 2021-09-05 19:18 | NUR ---
PATIENT CALLED FOR NAUSEA MEDICATION AND FOR PAIN MEDS FOR 8/10 BACK AND EVERYWHERE PAIN. 25MG PHENERGAN IV GIVEN PER PROTOCOL ON IV PUMP. 4MG SIVP MORPHINE GIVEN. SHIFT REPORT GIVEN TO LUKASZ DANG AND NEW IV BAG UP AND RUNNING. PATIENT HAS NO OTHER NEEDS AT THIS TIME. CALL LIGHT IS IN REACH.
--- NOTE | 2021-09-05 20:00 | NUR ---
RECEIVED REPORT FROM DAY SHIFT RN. PATIENT IS RESTING IN BED WATCHING TV. PATIENT DENIES ANY NEEDS. CALL LIGHT IN REACH.
--- NOTE | 2021-09-05 21:39 | NUR ---
PATIENT ASSESMENT COMPLETED. PATIENTS VITALS TAKEN AND RECORDED. PATIENTS ATTEND CHANGED, MARLENA CARE COMPLETED. PATIENT REPOSITIONED IN BED. PATIENT RATES PAIN AT A 7/10, PRN PAIN MEDICATION GIVEN PER ORDER. PATIENTS PM MEDS GIVEN PER ORDER IN PUDDING. PATIENTS IV INFUSING PER ORDER. PATIENT IS TEARFUL AND ANXIOUS, SUPPORT PROVIDED. PATIENT DENIES ANY FURTHER NEEDS. CALL LIGHT IN REACH.
--- NOTE | 2021-09-05 22:35 | NUR ---
PATIENT IS RESTING IN BED WITH EYES CLOSED, RR 16. CALL LIGHT IN REACH.
--- NOTE | 2021-09-05 23:37 | NUR ---
PATIENT IS RESTING IN BED WITH EYES CLOSED, RR 18. CALL LIGHT IN REACH.
--- NOTE | 2021-09-06 01:04 | NUR ---
PATIENT IS RESTING IN BED WITH EYES CLOSED, RR 16. CALL LIGHT IN REACH. IV INFUSING PER ORDER.
--- NOTE | 2021-09-06 02:25 | NUR ---
PATIENT IS RESTING IN BED WITH EYES CLOSED, RR 16. CALL LIGHT IN REACH. IV INFUSING PER ORDER. CALL LIGHT IN REACH.
--- NOTE | 2021-09-06 03:34 | NUR ---
PATIENT IS RESTING IN BED WITH EYES CLOSED, RR 16. CALL LIGHT IN REACH.
--- NOTE | 2021-09-06 03:50 | NUR ---
in with rn for pt cares, pt incont, changed, fresh ice chips, no further needs at this time
--- NOTE | 2021-09-06 04:03 | NUR ---
PATIENTS ATTEND CHANGED AND MARLENA CARE COMPLETED. PATIENT REPORTS 10/10 PAIN, PRN PAIN MEDICATION GIVEN PER ORDER. PATIENT GIVEN PRN NAUSEA MEDICATION FOR C/O NAUSEA. PATIENT REPOSITIONED IN BED. PATIENTS IV INFUSING PER ORDER. PATIENT PROVIDED ICE CHIPS. NO FURHTER NEEDS NOTED. CALL LIGHT IN REACH.
--- NOTE | 2021-09-06 04:54 | NUR ---
IV PUMP WAS BEEPING, IT IS NOW INFUSING FINE. PT IS RESTING WITH EYES CLOSED, RR IS EVEN AND UNLABORED. CALL LIGHT IS CLOSE.
--- NOTE | 2021-09-06 05:48 | NUR ---
PATIENTS VITALS TAKEN AND RECORDED. INTAKE AND OUTPUT RECORDED BY R D INTERN. PATIENTS ATTEND IS DRY AT THIS TIME. PATIENT PLACED ON 2L VIA NC. PATIENT DENIES ANY NEEDS. CALL LIGHT IN REACH. LAB DRAW FOLLOWS: IV INFUSION STOPPED FOR 5 MIN, WASTED 15ML, LAB DRAWN AND PLACED IN BLUE TUBE, PORT FLUSHED. BLOOD SENT TO LAB. PATIENTS IV INFUSION RESUMED PER ORDER.
--- NOTE | 2021-09-06 07:22 | NUR ---
THIS RN RECEIVED SHIFT REPORT FROM LUKASZ DANG. PATIENT CURRENTLY RESTING IN LOW FOWLERS POSITION, EYES CLOSED, RESPIRATIONS ARE REGULAR AND EVEN, CALL LIGHT IS IN REACH. PATIENT HAS NO CURRENT PATIENT CARE NEEDS.
--- NOTE | 2021-09-06 08:53 | NUR ---
PATIENT AWAKE NOW AND DENIES THE NEED FOR PAIN OR NAUSEA MEDS AT THIS TIME. THIS RN COMPLETED AM ASSESSMENT. PATIENT ABLE TO TAKE ALL ORAL AM MEDS WITH SOME PUDDING. AM ANTIBIOTIC HUNG AND RUNNING. PATIENT'S ATTENDS ARE DRY. NEW ICE CHIPS IN A CUP GIVEN. PATIENT DECLINED WATER IN A GLASS, JUST WANTED THE ICE CHIPS. PATIENT DENIES ANY OTHER CARE NEEDS AT THIS TIME. CALL LIGHT IS IN REACH.
--- NOTE | 2021-09-06 09:36 | NUR ---
PATIENT CALLED FOR NAUSEA AND NECK/EVERYWHERE PAIN 8/10. 4MG SIVP MORPHINE GIVEN AFTER 25MG IV PROMETHAZINE GIVEN FOR NAUSEA PER PROTOCOL. PATIENT DENIED ANY OTHER CARE NEEDS AT THIS TIME. JUST FINISHED TALKING WITH PATIENT ABOUT PATIENT'S TREATMENT PLAN AND INFORMED PATIENT WE WOULD LOOK AT PHYSICAL THERAPY WORKING WITH THE PATIENT.
--- NOTE | 2021-09-06 09:46 | NUR ---
PATIENT SITTING UP IN BED WATCHING TV. VITALS AND I&O'S CHARTED. PATIENT HAS NO COID AT THIS TIME, WILL CHECK BACK IN. CALL LIGHT IN REACH. NO FURTHER NEEDS AT THIS TIME.
--- NOTE | 2021-09-06 10:37 | NUR ---
PATIENT CALLED FOR IV BEEPING. NEW IV FLUIDS WITH NEW TUBING HUNG. PATIENT SAYS HER NAUSEA IS GONE AND SHE IS COFORTABLE NOW HER PAIN IS BETTER. PATIENT HAS NO OTHER CARE NEEDS AT THIS TIME. CALL LIGHT IS IN REACH.
--- NOTE | 2021-09-06 11:27 | NUR ---
1200 TUMS TABLETS GIVEN TO PATIENT. PATIENT SLEEPING WHEN THIS RN CAME IN. PATIENT DENIES PAIN AND NAUSEA AT THIS TIME AND JUST WANTS TO SLEEP. CALL LIGHT IN REACH. PATIENT HAS NO OTHER CARE NEEDS AT THIS TIME.
--- NOTE | 2021-09-06 12:20 | NUR ---
NAKUL FROM PT WAS IN TO TALK WITH PATIENT ABOUT GETTING OUT OF BED AND LUNCH ARRIVED. PATIENT AGREED TO TALK WITH NAKUL AFTER LUNCH AROUND 1PM ABOUT GETTING UP. PATIENT DENIES THE NEED FOR PAIN AND NAUSEA MEDICATION AT THIS TIME. CALL LIGHT IS IN REACH.
--- NOTE | 2021-09-06 12:30 | NUR ---
PATIENT REQUESTED HOT TEA TO GO WITH HER LUNCH. THIS RN DELIVERED THE TEA AND PATIENT DENIED ANY OTHER CARE NEEDS AT THIS TIME. CALL LIGHT IS IN REACH.
--- NOTE | 2021-09-06 14:24 | NUR ---
PATIENT IN BED WATCHING TV AT THIS TIME. VITALS AND I&O'S CHARTED. CALL LIGHT IN REACH. NO FURTHER NEEDS AT THIS TIME. LINENS CHANGED WHILE PATIENT WAS WORKING WITH PT.
--- NOTE | 2021-09-06 15:53 | NUR ---
THIS RN IN TO GIVE SCHEDULED MEDS. PATIENT DENIED THE NEED FOR PAIN OR NAUSEA MEDS AT THIS TIME. PATIENT GIVEN PUDDING TO TAKE HER MEDS WITH. PATIENT DENIED ANY OTHER CARE NEEDS AT THIS TIME. CALL LIGHT IS IN REACH.
--- NOTE | 2021-09-06 18:01 | NUR ---
PATIENT IN BED WATCHING TV. VITALS AND I&O'S CHARTED. CALL LIGHT IN REACH. NO FURTHER NEEDS AT THIS TIME.
--- NOTE | 2021-09-06 18:15 | NUR ---
PMA SSESSMENT COMPLETE. PATIENT DENIES THE NEED FOR PAIN OR NAUSEA MEDS AT THIS TIME AND THAT MEDS GIVEN BY LUKASZ MCKEON RELIEVED HER PAIN AND NAUSEA. PATIENT DENIES ANY CARE NEEDS AT THIS TIME. CALL WALTER ENRIQUEZ.
--- NOTE | 2021-09-06 19:10 | NUR ---
REPORT RECEIVED FROM LUKASZ JACOBSON. pt RESTING IN BED WITH EYES CLOSED. BREATHING UNLABORED. IVF INFUSING PORT. NO DISTRESS NOTED.
--- NOTE | 2021-09-06 22:04 | NUR ---
V/S AND I&O'S COMPLETED. CHANGED PULL UP FROM INCONTINENT URINE. ICE CHIPS PROVIDED. PRIMARY RN AND SN WERE IN THE ROOM.
--- NOTE | 2021-09-06 22:19 | NUR ---
CALL LIGHT ANSWERED. pt COMPLAINS OF 8/10 GENERALIZED PAIN, BACK PAIN. PRN PAIN MEDICATION ADMINISTERED. pt C/O NAUSEA, REFUSES PRN ZOFRAN, PRN PHENERGAN ADMINISTERED WNL. PORT FLUSHED WNL, BRISK BLOOD RETURN. IV ANTIBIOTIC INFUSING ORDERED. ASSISTED pt TO REPOSITION IN BED. INCONTINENT OF URINE, ATTENDS CHANGED. OSTOMY EMPTIED. BOWEL TONES ACTIVE, ABD SOFT. CALL LIGHT IN REACH. PO FLUIDS PROVIDED.
--- NOTE | 2021-09-07 00:09 | NUR ---
CALL LIGHT ANSWERED. pt RESTING IN BED AWAKE, CONCERNED WITH DENTURES HAVING BEEN THROWN AWAY. UPPER AND LOWER DENTURES IN CUP, pt SHOWN. LIGHTS OFF IN ROOM. NO ADDITIONAL REQUESTS.
--- NOTE | 2021-09-07 00:49 | NUR ---
CALL LIGHT ANSWERED. IV PUMP ALARMING, DISTAL AIR. NOW INFUSING PORT WNL. NO ADDITIONAL REQUESTS, pt STATES SHE WILL TRY TO SLEEP. CALL LIGHT IN REACH.
--- NOTE | 2021-09-07 02:42 | NUR ---
CALL LIGHT ANSWERED. pt INCONTINENT OF URINE, LARGE VOID IN ATTENDS. pt ASSISTS TO REMOVE ATTENDS, CHANGES OWN ATTENDS, COMPLETES MARLENA CARE WITH WIPES. pt COMPLAINS OF 7/10 PAIN IN BACK, GENERALIZED. PRN PAIN MEDICATION ADMINISTERED. IV ANTIBIOTIC COMPLETE, IVF INFUSING ORDERED. ASSESSMENT COMPLETE. CALL LIGHT IN REACH.
--- NOTE | 2021-09-07 06:15 | NUR ---
CALL LIGHT ANSWERED. pt REQUESTING PRN PAIN AND NAUSEA MEDICATION. RATES PAIN 7-8/10 "ALL OVER". PRN PAIN AND NAUSEA MEDICATION ADMINISTERED. LABS DRAWN FROM PORT, 10 MLS BLOOD WASTED AND SENT TO LAB. IVF INFUSING WNL. VSS. pt INCONTINENT OF URINE, ATTENDS CHANGED BY pt, MARLENA CARE COMPLETE. NEW CHUX UNDER pt. CALL LIGHT IN REACH.
--- NOTE | 2021-09-07 07:30 | NUR ---
THIS RN RECEIVED SHIFT REPORT FROM LUKASZ DANG. PATIENT IS CURRENTLY RESTING QUIETLY IN LOW FOWLERS POSITION, EYES CLOSED, RESPIRATIONS ARE REGULAR AND EVEN, AND CALL LIGHT IS IN REACH. PATIENT HAS NO CURRENT CARE NEEDS AT THIS TIME.
--- NOTE | 2021-09-07 09:05 | NUR ---
PATIENT IN BED RESTING AT THIS TIME. VITALS AND I&O'S CHARTED. PATIENT ASKING FOR PAIN AND NAUSEA MEDS, RN NOTIFIED. CALL LIGHT IN REACH. NO FURTHER NEEDS AT THIS TIME.
--- NOTE | 2021-09-07 09:22 | NUR ---
THIS RN IN TO SEE PATIENT AND PATIENT HAS C/O 11/18 EVERYWHERE PAIN AND NAUSEA. 4MG SIVP MORPHINE GIVEN AFTER 4MG SIVP ZOFRAN GIVEN. Mg+ RIDER HUNG AND RUNNING AND OTHER AM MEDS GIVEN, WHICH PATIENT TOOK FINE WITH SOME PUDDING. AM ASSESSMENT COMPLETE AND PATIENT GIVEN A FRESH CUP OF ICE CHIPS SHE REQUESTED. PATIENT DENIES ANY OTHER CARE NEEDS AT THIS TIME. CALL LIGHT IN REACH.
--- NOTE | 2021-09-07 11:37 | NUR ---
PATIENT CALLED REQUESTING PAIN AND NAUSA MEDICATION. PATIENT'S PAIN HAS GONE BACK UP TO 8/10 "EVERYWHERE" PER PATIENT. 25MG IV PROMETHAZINE GIVEN PER PROTOCOL AND 4MG SIVP MORPHINE GIVEN. PATIENT SAT HAS BEEN IN THE LOW 90'S AND DROPS TO 88% WHEN ASLEEP AND MEDICATED 2L/NC PLACED ON PATIENT AND O2 SATS=93%. CALL LIGHT IS IN REACH AND PATIENT DENIES ANY OTHER CARE NEEDS AT THIS TIME.
--- NOTE | 2021-09-07 12:13 | CONS ---
[facility] [address], [place] [address] Signed DATE OF CONSULTATION: 09/06/2021 REQUESTING PHYSICIAN: Dr. Toledo. PROBLEM: Esophageal dysphagia with recurrent stricture. 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 She is markedly debilitated dominantly from Crohn disease. She has had episodes of near experiences with various infections and complications related to that. She was admitted through the emergency room by Dr. Nieves on September 03, 2021, with profound weakness, dysphagia and burning upon urination. She was noted to have an elevated creatinine and very low magnesium level and abnormal urinalysis consistent with infection. Care has been assumed by Dr. Toledo. Her admitting diagnosis in addition to acute kidney injury and hypomagnesemia and hypokalemia was acute cystitis, now treated with IV cefepime. The offending pathogen appears to be Enterococcus. The patient was concurrently noted to have an elevated INR; she is chronically anticoagulated with Coumadin for a single episode of pulmonary embolism she suffered about 15 to 16 years ago. The patient had at least two TIAs and that may be the reason she was maintained on anticoagulation all these years. The patient is now on Humira for Crohn disease and has an ostomy as well. She has chronic pain syndrome, now on gabapentin, previously on opiates in significantly dependent way and less so now. I was consulted regarding her dysphagia and esophageal stricture. She has had dilation of the stricture twice. The last episode was six years ago in the [facility]. She is known to have gastroesophageal reflux and hiatal hernia and it is assumed that was a source of her stricture formation. An upper GI was performed on September 03 under the direction of Dr. Nieves, which described a very limited study related to the patient's frailty, inability to stand and inability to drink barium in the lateral recumbent position. There was considered a mild narrowing about 3 cm in length in the upper esophagus, but does not delay swallowing. There was a hiatal hernia as well. The patient is very interested in having esophageal dilation due to her recurrent dysphagia. She notes her home diet is essentially anything she wants to eat. However, upon further questioning, admits that bread and meat are problematic and she simply avoids them. She has no family history of esophageal cancer. Electronically Signed By: JERI FORD MD 09/07/21 1213 PATIENT NAME: MACKENZIE HARTLEY CONSULTATION DATE OF : 55 REPORT #: [id number] PHYSICIAN: JERI FORD MD PCP: NICHOLE BONDS MD REPORT IS CONFIDENTIAL AND NOT TO BE RELEASED WITHOUT AUTHORIZATION [facility] [address], [place] [address] Signed MEDICATIONS: Her outpatient medications include: 1. Tylenol. 2. Humira. 3. Gabapentin. 4. Metoprolol. 5. Omeprazole b.i.d. 6. Tincture of opium q.i.d. with meals presumably for diarrhea. 7. Promethazine. 8. Trazodone. 9. Coumadin 6 mg tablets one-half tablet p.o. daily. REVIEW OF SYSTEMS: She denies any hematemesis or blood per rectum. Her weakness is improving, though she does remain weak. She denies any chest pain. She has had no hematemesis or blood per ostomy. PHYSICAL EXAMINATION: GENERAL: A markedly debilitated white woman. Her BMI is 17.9. NECK: Trachea is midline. CHEST: Shows normal respiratory excursion. Pulse is regular. ABDOMEN: With poor muscle tone. There is an ostomy in the lower mid abdomen, extensively an ileostomy, though uncertain entirely at this time. EXTREMITIES: Show no clubbing, cyanosis, or edema. LABORATORY STUDIES: Recent lab study show white count now 14.5, down from 18.2 on September 02, hematocrit is 29.7, platelets 381,000. Her Chem profile shows a creatinine of 1.37, previously 2.28 at time of initial evaluation. Electrolytes are now normal. Magnesium 1.8, previously 0.2. I have reviewed the imaging study including the upper GI, which is admittedly rather limited. I see no evidence of distal esophageal stricture. The narrowing of the esophagus is perceptible on imaging studies in what I would term the midesophagus. She has a significant hiatal hernia as well. I see no sign of distal esophageal stricture. The GE junction appears to be directly in the mid cardiac portion. She was admitted for infectious cause as well as significant and severe electrolyte imbalance and dehydration and is improving in that regard. Her most recent labs regarding her INR show an INR of 3.90, admission INR is 5.86. No doubt her excessive anticoagulation was related to poor oral intake related to her acute illness. I have discussed all this with Dr. Toledo. Esophageal dilation is a consideration and likely would be beneficial to her. However, I would not recommend dilation in the setting of significant anticoagulation and particularly in excess of in the setting of excessive anticoagulation. Commonly a sign of a defective esophageal dilation is "cracking" of the mucosa with attendant small Electronically Signed By: JERI FORD MD 09/07/21 1213 PATIENT NAME: MACKENZIE HARTLEY CONSULTATION DATE OF : 55 REPORT #: [id number] PHYSICIAN: JERI FORD MD PCP: NICHOLE BONDS MD REPORT IS CONFIDENTIAL AND NOT TO BE RELEASED WITHOUT AUTHORIZATION [facility] [address] [facility] [place], [place] [address] Signed amount of bleeding. She has minimal reserve for a hemorrhagic esophageal problem and I would require that she be non-anticoagulated to proceed with such an undertaking. An outpatient dilation may be more appropriate considering she is still recuperating from her acute illness. I will be out of town after tomorrow for a week. An outpatient dilation might be able to be set up taking her INR to a more normal range by simply withdrawing the Coumadin over time. Her indication for anticoagulation is that of a single episode of pulmonary embolism a number of years ago. She does not have concurrent atrial fibrillation, cardiac valve or other more problematic reasons for anticoagulation for which bridge therapy would be otherwise recommended. I discussed all this with the patient and subsequently with Dr. Toledo. At present, her INR will drift to a normal level and likely she will be discharged with antibiotics and re-evaluation as an outpatient for dilation undertaken. MD SCOTTIE Vega/CAMILLEL /[id number] cc: MD Nichole Flores MD Copies: MONE TOLEDO MD ~ Electronically Signed By: JERI FORD MD 09/07/21 1213 PATIENT NAME: MACKENZIE HARTLEY CONSULTATION DATE OF : 55 REPORT #: [id number] PHYSICIAN: JERI FORD MD PCP: NICHOLE BONDS MD REPORT IS CONFIDENTIAL AND NOT TO BE RELEASED WITHOUT AUTHORIZATION
--- NOTE | 2021-09-07 13:16 | NUR ---
PATIENT RESTING QUIETLY ON HER RIGHT SIDE, EYES CLOSED, RESPIRATIONS ARE EGULAR AND EVEN, 2L/NC REMAINS IN PLACE, AND CALL LIGHT IN REACH. PATIENT HAS NO CURRENT CARE NEEDS.
--- NOTE | 2021-09-07 15:16 | NUR ---
PATIENT CALLED HAVING DRY HEAVES PER PATIENT. THIS WAS NOT OBSERVED BY THIS RN AND PATIENT STOPPED WORKING WITH PT WHO WAS DRYING TO GET PATIENT UP. 4MG SIVP ZOFRAN GIVEN FOLLOWED BY 4MG SIVP MORPHINE FOR 8/10 "ALL OVER" PAIN. PATIENT GIVEN A NEW CUP OF ICE CHIPS AND TOOK HER PO SCHEDULED MEDS WITHOUT DIFFICULTY. PATIENT'S JUST ARRIVED TO TALK WITH PATIENT. THIS RN LEFT THE ROOM. CALL LIGHT WAS IN REACH.
--- NOTE | 2021-09-07 15:36 | NUR ---
PATIENT'S HERE CHANGING PATIENT'S OSTOMY BAG. PATIENT CALLED FOR ME TO COME IN THE ROOM SO SHE COLD TELL ME SHE GAVE HERSELF HER HUMIRA SHOT THAT HER BROUGHT IN. I VERBALIZED UNDERSTANDING AND INFORMED THAT PATIENT HAD USED A HOME MED THAT WAS NOT ON HER MAR. VERBALIZED UNDERSTANDING AND HAD NO NEW DIRECTIONS OR ORDERS FOR THIS RN.
--- NOTE | 2021-09-07 16:49 | NUR ---
PATIENT VISITING WITH HER WHO IS AT BEDSIDE. PATIENT AND SPOUSE BOTH DENY ANY CARE NEEDS AT THIS TIME. PATIENT SAYS SHE IS COMFORTABLE AT THE MOMENT. CALL LIGHT DAWSON ENRIQUEZ.
--- NOTE | 2021-09-07 17:07 | NUR ---
THIS RN IN TO GIVE PATIENT SCHEDULED MEDS. PATIENT'S JUST LEFT. PATIENT TEARFUL. PATIENT SAYS SHE IS STILL DEALING WITH FALLOUT FROM AN ARGUMENT SHE HAD WITH HER DAUGHTER. PATIENT DENIED THAT I COULD DO ANYTHING FOR HER AT THIS TIME AND PATIENT IS TRYING TO EAT HER DINNER. CALL LIGHT IS IN REACH.
--- NOTE | 2021-09-07 18:50 | NUR ---
PATIENT'S IV FLUIDS HAVE BEEN DC'D. PATIENT WAS JUST CHANGED FOR INCONTINENCE BY LUKASZ PEREZ AND IS REQUESTING MORPHINE FOR 8/10 EVERYWHERE PAIN AND PHENERGAN FOR NAUSEA. PATIENT GIVEN 12.5MG PHENERGAN IV PER PROTOCOL AND 4MG SIVP MORPHINE AND PORT IS SALINE LOCKED AT THIS TIME. CALL LIGHT IS IN REACH.
--- NOTE | 2021-09-07 19:36 | NUR ---
RECEIVED REPORT FROM INDIRA LAL. PATIENT RESTING IN BED. BREATHING EVEN AND UNLABORED. CALL LIGHT WITHIN REACH.
--- NOTE | 2021-09-07 21:45 | NUR ---
pt SLEEPING, DOES NOT AWAKEN TO VOICE, SPO2 SPOT CHECKED 93% WHILE SLEEPING WITH 2L OXYGEN BY NC ON. AWAKENS TO SHAKING OF LEFT ARM. pt STARTLES, STATES "SLEEP". EDUCATED ON PLAN OF CARE. pt COOPERATIVE WITH CARES. INCONTINENT OF VOID, ATTENDS CHANGED, MARLENA PAD IN PLACE, CHUX DRY AT THIS TIME. PORT WITH BRISK BLOOD RETURN, IV ANTIBIOTIC INFUSING WNL ORDERED. pt DENIES PAIN. THICKENED LIQUIDS PROVIDED. pt DENIES PAIN. LIGHTS OFF IN ROOM.
--- NOTE | 2021-09-07 22:22 | NUR ---
PATIENT SLEEPING IN BED WITH LIGHTS OFF. WAS AWAKEN BY VOICE. ASSESSMENT COMPLETE. VSS. LUNG SOUNDS CLEAR. BOWEL TONES ACTIVE. BREATHING EVEN AND UNLABORED. SOILED PAD AND UNDERGARMENT CHANGED. THICKENED WATER PROVIDED. PATIENT DENIES NAUSEA OR PAIN. NO OTHER NEEDS VOICED AT THIS TIME. CALL LIGHT WITHIN REACH.
--- NOTE | 2021-09-08 00:37 | NUR ---
CHECKED ON PATIENT. PATIENT IS RESTING IN BED WITH EYES CLOSED. BREATHING IS EVEN AND UNLABORED. CALL LIGHT WITHIN REACH.
--- NOTE | 2021-09-08 02:42 | NUR ---
CHECKED ON PATIENT. RESTING IN BED. BREATHING EVEN AND UNLABORED. AWAKEN BY VOICE AND TOUCH. SALINE LOCKED PORT. NO NEEDS VOICED. CALL LIGHT WITIN REACH.
--- NOTE | 2021-09-08 02:49 | NUR ---
pt SLEEPING, 2L OXYGEN BY NC IN PLACE. IV ANTIBIOTIC COMPLETE, PUMP ALARMING. PORT SL WNL BY SN. NO DISTRESS NOTED. pt AWAKENS BRIEFLY AND CLOSES EYES.
--- NOTE | 2021-09-08 06:00 | NUR ---
pt AWAKE WATCHING TV WHEN RN ENTERS ROOM, DROWSY. LABS DRAWN FROM PORT PER POLICY, 7 MLS BLOOD WASTED BY SN. CAP CHANGED, PORT SL WNL. VSS. ICE CHIPS PROVIDED. CALL LIGHT WITHIN REACH.
--- NOTE | 2021-09-08 06:36 | NUR ---
PATIENT ALERT AND VOICED FEELING A LITTLE GROGGY. ASSESSMENT COMPLETE. VSS. LUNG SOUNDS CLEAR. BOWEL TONES ACTIVE. PATIENT ASKED FOR PAIN RX. RX ADMINSTERED PER EMAR. CHANGED UNDERWEAR, PAD AND CHUCKS FOR PATIENT. PATIENT DENIES NAUSEA. 1 LITER NASAL CANNULA RUNNING. ICE CHIPS PROVIDED. NO OTHER NEEDS VOICED AT THIS TIME. CALL LIGHT WITHIN REACH.
--- NOTE | 2021-09-08 06:49 | NUR ---
PATIENT SLEPT MOST OF THE NIGHT. PATIENT TOLERATING PUREE DIET WELL. PATIENT DENIES NAUSEA BUT DID ASK FOR PAIN RX. RX ADMINISTERED PER EMAR. ON 1 LITER OXYGEN NASAL CANNULA. VSS. LUNG SOUNDS CLEAR. BOWEL TONES ACTIVE. PATIENT IS INCONTINENT WITH PADS IN PLACE. NO OTHER NEEDS VOICED. CALLL LIGHT WITHIN REACH.
--- NOTE | 2021-09-08 07:30 | NUR ---
THIS RN RECEIVED SHIFT REPORT FROM LUKASZ ARIAS. PATIENT RESTING IN BED WATCHING TV. PATIENT DENIED ANY CARE NEEDS AT THIS TIME. CALL LIGHT IS IN REACH.
--- NOTE | 2021-09-08 09:16 | NUR ---
THIS RN IN WITH NURSING STUDENTS TO EVALUATE PATIENT. PATIENT REPORTS 8/10 PAIN "EVERYWHERE" IN HER BODY AND NAUSEA. 4MG SIVP MORPHINE GIVEN WITH 12.5MG IV PROMETHAZINE DILUTED AND GIVEN PER PROTOCL. PATIENT ABLE TO SWOLLOW ALL ORAL MEDS WITH SIPS OF WATER TODAY WITHOUT DIFFICULTY AND PATIENT FINISHING HER BREAKFAST. PATIENT DENIED ANY OTHER CARE NEEDS AT THIS TIME. CALL LIGHT IS IN REACH.
--- NOTE | 2021-09-08 10:48 | NUR ---
REPORT RECEIVED FROM LUKASZ JACOBSON. PT RESTING IN BED, AWAKE AND ALERT. PT REPORTS 6/10 GENERALIZED PAIN THAT IS TOLEARBLE AT THIS TIME. OSTOMY BAG INTACTED, WNL. PORT A CATH REMAINS WNL. PT DENIES ADDITIONAL REQUESTS OR COMPLAINTS. CALL LIGHT WITHIN REACH. BED RAILS UP.
--- NOTE | 2021-09-08 11:24 | NUR ---
PATIENT WORKING WITH PT AT THIS TIME. PATIENT HAS NO CURRENT NURSING CARE NEEDS AT THIS TIME. THIS RN PASSED ON REPORT TO LUKASZ ASENCIO WHO IS TAKING OVER PATIENT'S CARE.
--- NOTE | 2021-09-08 11:58 | NUR ---
MEDICATION DUE. THIS RN TO ROOM TO CHECK ON PT. PT WATCHING TV. PT AGREES TO TAKE MEDICATION. PT REPORTS 8/10 PAIN "EVERYWHERE." SEE MAR FOR MEDICATION GIVEN. PORT ASSESSED, WNL. BRISK BLOOD RETURN NOTED. LINE FLUSHED, ABX RESTARTED. PT ASKS FOR PHENEGRAN REPORTING SHE IS NAUSEATED. PHENEGRAN NOT YET DUE. PT DECLINES ZOFRAN. NO ADDITIONAL REQUESTS OR COMPLAINTS. CALL LIGHT WITHIN REACH. BED RAILS UP.
--- NOTE | 2021-09-08 12:33 | NUR ---
THIS RN TO ROOM TO CHECK ON PT. PT EATING LUNCH, NO SWALLOWING ISSUES NOTED WITH PURREED DIET. PT REPORTS NAUSEA BUT CONTINUES TO DECLINE ZOFRAN STATING "I JUST WANT THE PHENEGRAN." PT UPDATED ON WHEN SHE CAN NEXT HAVE PHENEGRAN. PT REPORTS PAIN HAS IMPROVED NOW 5/10 "EVERYWHERE." PT DENIES ADDITIONAL REQUESTS OR COMPLAINTS. CALL LIGHT WITHIN REACH. BED RAILS UP.
--- NOTE | 2021-09-08 13:17 | NUR ---
PUMP ALARMING, INFUSION AND FLUSH COMPLETE. PORT ASSESSED, WNL, BRISK BLODD RETURN NOTED. LINE FLUSHED AND HEPARIN LOCKED PER PROTOCOL. ALCOHOL CAP APPLIED. VITAL SIGNS STABLE. PT DENIES ADDITIONAL REQUESTS OR COMPLAINTS. CALL LIGHT WITHIN REACH. BED RAILS UP.
--- NOTE | 2021-09-08 13:59 | NUR ---
AFTERNOON ASSESSMENT AND MEDICAITON DUE. PT RESTING IN BED WATCHING TV. PT ENCORUAGED TO GET UP TO CHAIR, PT DECLINES. PT REPORTS 7/10 PAIN "EVERYWHERE" AND REQUESTS PHENEGRAN. PT EDUCATION DONE. PT PHENEGRAN NOT YET DUE. PT DECLINES ZOFRAN. PT REQUESTS MORPHINE, GIVEN ORDERED. HEPARIN REMOVED FROM PORT A CATH AND DISCARDED. BRISK BLOOD RETURN NOTED. MEDICATION GIVEN. PORT SALINE LOCKED AT THIS TIME. PT ALERT AND ORIENTED TO ALL. PT REPORTS SHE HAS BEEN UNABLE TO WALK "SINCE THE EMERGENCY SURGERY." PT REPORTS BASLINE NUMBNESS AND TINGLING IN BILATERAL LEGS. STRONG PLANTAR AND DORSI FELXTION NOTED. PT ABLE TO LIFT BOTH LEGS OFF THE BED AND PUSH AGINST RESISTANCE IN ALL DIRECTIONS. PT CONTINUES TO REPORTS SWALLOWING ISSUES BUT TAKES ORAL MEDICAITONS WITHOUT ISSUE OR FLUIDS. PT DECLINES WATER BUT IS DRINKING ENSURE AND EATING OTHER PURREED FOODS. PT ENCOUARGED TO GET UP TO CHAIR, CONTINUES TO DECLINE. LUNG SOUNDS CLEAR. PT REMAINS ON ROOM AIR WITH OXGYEN SATURATIONS ABOVE 94%. BOWEL TONES ACTIVE. OSTOMY BAG DRAINGING BROWN LOOSE STOOL BY GRAVITY, C/D/I. ALLEVYN REMAINS TO LEFT HIP PER PTS REQUEST. NO SORES OR SKIN CHANGES NOTED IN THIS AREA. PT DENIES ADDITIONAL REQUSTS OR COMPLAINTS. CALL LIGHT WITHIN REACH. BED RAILS UP.
--- NOTE | 2021-09-08 14:41 | NUR ---
THIS RN TO ROOM TO CHECK ON PT. PT RESTING WITH EYES CLOSED. RESPRATIONS EVEN AND UNLABORED. CALL LIGHT WITHIN REACH. BED RAILS UP. PT ALLOWED TO REST.
--- NOTE | 2021-09-08 15:30 | NUR ---
THIS RN TO ROOM TO CHECK ON PT. PT RESTING WITH EYES CLOSED. RESPIRATIONS EVEN AND UNLABORED. CALL LIGHT WITHIN REACH. BED RAILS UP.
--- NOTE | 2021-09-08 15:56 | NUR ---
PT CALL LIGHT ON. PT REQUESTS AN "AID TO CHANGE ME." TIMO CASTRO, TO BEDSIDE TO ASSIST PT. PT REQUESTS MORPHINE AND PHENEGRAN STATING "i WANT THEM TOGETHER TO HELP ME RELAX." PT REPORTS PAIN AT 8/10 "EVERYWHERE." PT REPORTS NAUSEA WELL. SEE MAR FOR MEDICATIONS GIVEN. PT DENIES ADDITIONAL REQUESTS OR COMPLAINTS. CALL LIGHT WITHIN REACH. BED RAILS UP.
--- NOTE | 2021-09-08 16:42 | NUR ---
THIS RN TO ROOM TO CHECK ON PT. PT RESTING IN BED WITH EYES CLOSED. RESPIRATIONS EVEN AND UNLABORED. HEAD OF BED ELEVATEDT O 20 DEGREES. BED RAILS UP. CALL LIGHT WITHIN REACH. PT ALLOWED TO REST.
--- NOTE | 2021-09-08 17:02 | NUR ---
pT HERE FOR HYPOTMAGNESEMIA, HYPOCALCEMIA, AND DEHYDRATION. PT UP TO EDGE OF BED WITH STAND BY ASSIST. PT DECLINES ALL TIME OUT OF BED THIS SHIFT, ONLY UP WITH DEPENDS CHANGES AND TO EMPTY OSTOMY BAG. PT WEANED TO ROOM AIR THIS SHIFT, LUNG SOUNDS CLEAR. PT REQUESTING FREQUENT MORPHINE AND PHENEGRAN, PRN MEDICAITONS GIVEN FOR 5-8/10 PAIN AND NAUSEA. OSTOMY BAG REMAINS WNL. PT ALERT AND OREINTED. PORT A CATH IN PLACE WITH BRISK BLOOD RETURN NOTED, SALINE LOCKED AT THIS TIME. PT CONTINUES TO REPORT DIFFICULTY SWALLOWING, PURREED DIET PROVIDED WITH MODERATE INTAKE. PT VOIDING QUANTITY SUFFICIENT. PT USES CALL LIGHT AND MAKES NEEDS KNOWN.
--- NOTE | 2021-09-08 17:35 | NUR ---
THIS RN TO ROOM TO CHECK ON PT. PT EATING DINNER. PT REPORTS 6/10 PAIN AT THIS TIME AND DENIES NAUSEA STATING THE MORPHINE AND PHENEGRAN REALLY HELPED. PT DENIES ADDITIONAL REQUESTS OR COMPLAINTS. CALL LIGHT WITHIN REACH. BED RAILS UP.
--- NOTE | 2021-09-08 18:26 | NUR ---
PATIENT IN BED RESTING WITH EYES CLOSED. VITALS AND I&O'S CHARTED. CALL LIGHT IN REACH. NO FURTHER NEEDS AT THIS TIME.
--- NOTE | 2021-09-08 18:30 | NUR ---
THIS RN TO ROOM TO CHECK ON PT. PT RESTING ON LEFT SIDE WITH EYES CLOSED, RESPIRATIONS EVEN AND UNLABORED. BED RAILS UP. CALL LIGHT WITHIN REACH. PT ALLOWED TO REST UNDESTURBED.
--- NOTE | 2021-09-08 19:20 | NUR ---
RECEIVED REPORT AT RN STATION TO LEAVE PT UNDISTURBED. PT SLEEPING 20MIN AGO PER REPORT.
--- NOTE | 2021-09-08 21:52 | NUR ---
IN ROOM TO ASSESS PT AND ADMINISTER MEDICATIONS. ADMINISTERED 4MG IV MORPHINE VIA PORT, IT FLUSHES WELL AND HAS GOOD BLOOD RETURN AND IS NOW HEPLOCKED. PT REPORTS PAIN 10/10 AT THIS TIME. CHANGED PT'S ATTENDS, WHICH WAS SOAKED WITH URINE. PT BURPED HER OSTOMY BAG AND DENIES NEEDING IT EMPTIED AT THIS TIME. PT DENIES FURTHER NEEDS AT THIS TIME. CALL LIGHT IS CLOSE.
--- NOTE | 2021-09-08 22:32 | NUR ---
PT IS RESTING WITH EYES CLOSED, RR IS EVEN AND UNLABORED. CALL LIGHT IS CLOSE.
--- NOTE | 2021-09-09 00:50 | NUR ---
THIS RN WAS IN ROOM TO REMOVE LIQUIDS AND PT REQUESTED PAIN AND NAUSEA MEDICATION. SHE DID NOT WANT ZOFRAN AND SPECIFICALLY REQUESTED 25MG OF PHENERGAN. PUSHED IV MORPINE 4 MGIV DILUTED SLOW PUSH AND PROGRAMED PHENERGAN ON THE PUMP TO INFUSE OVER 20MINS DILUTED IN 20MLS OF NS. PT IS NOW RESTING WITH EYES CLOSED, RR IS EVEN AND UNLABORED. CALL LIGHT IS CLOSE.
--- NOTE | 2021-09-09 01:54 | NUR ---
PT IS RESTING WITH EYES CLOSED, RR IS EVEN AND UNLABORED. CALL LIGHT IS CLOSE.
--- NOTE | 2021-09-09 04:37 | NUR ---
call light answered. changed incontinent pull up and wet gown and white chux. emptied ostomy. v/s and output taken and charted. garbages picked up. room lights off per patient.
--- NOTE | 2021-09-09 05:14 | NUR ---
PT REQUESTED PAIN AND NAUSEA MEDICATION. ADMINISTERED MORPHINE 4MG IV DILUTED SLOW PUSH AND ZOFRAN 4MG IV DILUTED SLOW PUSH. PORT FLUSHES AND HAS GOOD BLOOD RETURN. WASTED 10MLS OF BLOOD BEFORE DRAWING AM LABS. SENT BLOOD DRAW OVER TO LAB. PORT IS HEPLOCKED AND PT IS RESTING WITH EYES CLOSED, RR IS EVEN AND UNLABORED. CALL LIGHT IS CLOSE.
--- NOTE | 2021-09-09 06:07 | NUR ---
PT IS RESTING WITH EYES CLOSED, RR IS EVEN AND UNLABORED. CALL LIGHT IS CLOSE.
--- NOTE | 2021-09-09 07:25 | NUR ---
REPORT RECEIVED FROM LUKASZ STEWARD. DR. RUIZ TO BEDSIDE FOR ROUNDS. DR RUIZ NEEDS TO SHAKE PT AND USE LOUD VOICE TO AWAKEN HER FOR MORNING UPDATE. PT UPDATED ON PLAN OF CARE BY DR RUIZ. PT NOD'S UNDERSTANDING BUT DECLINES REPEAT BACK OF INFORMATION. PT REPORTS 8/10 PAIN AND REQUESTS "PHENEGRAN AND MORPHINE TOGETHER." PT QUICKLY FALLS BACK TO SLEEP. IV FLUIDS STARTED BY LUKASZ STEWARD. NO ADDITIONAL NEEDS AT THIS TIME. PT RESTING WITH EYES CLOSED. BED RAILS UP. CALL LIGHT WITHIN REACH.
--- NOTE | 2021-09-09 08:08 | NUR ---
MORNING ASSESSMENT AND MEDICATION DUE. IMAGING CALLED TO CLARIFY ORDERS ENTERED AND ASK IF PT IS WILLING TO STAND FOR 5 MINUTES FOR IMAGING STUDY. IMAGING TECHNITIAN STATES OK TO GIVE PT HER MORNING MEDICATIONS WITH A SIP OF WATER. PT RESTING WITH EYES CLOSED. RESPIRATIONS EVEN AND UNLABORED. PT AWAKENS TO VOICE AND TOUCH. IMAGING PLAN REVIEWED WITH PT. PT STATES SHE WILL BE ABLE TO STAND FOR 5 MINUTES FOR SCAN AND STATES SHE WILL BE ABLE TO SWALLOW THE BARRIUM. MEDICATIONS GIVEN, PT ABLE TO SWALLOW PILLS AND WATER WITH PILLS WITH NO ISSUES, NO COUGHING, THROAT CLEARING OR OTHER SWALLOWING DEFICITS NOTED. SHIV [facility] THERAPIST TO BEDSIDE TO REVIEW CASE WITH PT. PT VERBALIZES UNDERSTANDING AND STATES HER QUESTIONS HAVE BEEN ANSWERED. PT CONTINUES TO REPORT 8/10 PAIN "EVERYWHERE." PORT ASSESSED, WNL. BRISK BLOOD RETURN NOTED. PT ALERT AND ORIENTED TO ALL, OCCATIONALLY FORGETFUL. PT REPORTS BASELINE NUMBNESS AND TINGLING IN FEET. PT REPORTS WEAKNESS TO BLE, STRONG PLANTAR AND DORSI FLEXTION NOTED. PT PUSHES AGAINST RESISTANCE IN ALL DIRECTIONS, STRONG. BILATERAL UPPER EXTREMITIES WNL. LUNG SOUNDS CLEAR. HEART TONES REGULAR. BOWEL TONES ACTIVE. LIGHT BROWN SOFT STOOL NOTED IN OSTOMY BAG. BAG REMAINS WNL. ALELVYN NO LONGER IN PLACE OVER LEFT HIP, NO SORES OR REDENESS NOTED. PT DRIFTS QUICKLY BACK TO SLEEP. PT REPORTS NAUSEA AND REQUESTS "PHENEGRAN." IMAGING CALLED AND STATES PTS SCAN IS PLANNED FOR 1300. PT UPDATED AND FALLS QUICKLY BACK TO SLEEP. NO ADDIITONAL NEEDS AT THIS TIME. CALL LIGHT WITHIN REACH. BED RAILS UP.
--- NOTE | 2021-09-09 08:40 | NUR ---
PATIENT TO HAVE SWALLOW STUDY AT 1PM TODAY. PATIENT IS TO REMAIN NPO UNTIL THAT TIME.
--- NOTE | 2021-09-09 09:14 | NUR ---
PT IS SITTING UP IN BED WATCHING TV. I&O AND VS CHARTED CALL LIGHT WITHIN REACH NO FURTHER TASKS AT THIS TIME
--- NOTE | 2021-09-09 09:30 | NUR ---
THIS RN TO ROOM TO CHECK ON PT. PT RESTING WITH EYES CLOSED, RESPIRATIONS EVEN AND UNLABORED, RR = 18. PT DOES NOT AWAKEN TO MOVEMENT IN THE ROOM. ROOM TIDIED UP. BED RAILS UP. CALL LIGHT WITHIN REACH. PT ALLOWED TO REST.
--- NOTE | 2021-09-09 09:51 | NUR ---
SWALLOW EVALUATION NOT PERFORMED TODAY; PT AND NSG REPORT THAT PATIENT IS DOING WELL WITH PUREE. PT HAVING BARIUM SWALLOW STUDY PERFORMED TODAY. WILL REVISIT ASSESSMENT FOLLOWING SWALLOW STUDY.
--- NOTE | 2021-09-09 10:30 | NUR ---
THIS RN TO ROOM TO CHECK ON PT. PT RESTING ON RIGHT SIDE WITH EYES CLOSED. RESPIRATIONS EVEN AND UNLABORED. CALL LIGHT WITHIN REACH. BED RAILS UP. PT ALLOWED TO REST.
--- NOTE | 2021-09-09 11:20 | NUR ---
THIS RN TO ROOM TO CHECK ON PT. PT CONTINUES RESTING ON RIGHT SIDE WITH EYES CLOSED, RESPIRATIONS EVEN AND UNLABORED. PT ALLOWED TO REST. BED RAILS UP. CALL LIGHT WITHIN REACH.
--- NOTE | 2021-09-09 11:55 | NUR ---
IMAGING CALLED REGARDING PTS NOON TUMS ORDER. IMAGING TECHNITIAN STATES TO HOLD MEDICATION AT THIS TIME AND ALLOW PT TO REMAIN STRICT NPO. THIS RN TO ROOM. PT CONTINUES RESTING ON RIGHT SIDE WITH EYES CLOSED. RESPIRATIONS EVEN AND UNLABORED. PT REPOSITIONS SELF WHILE SLEEPING TO BACK. NO ADDITIONAL NEEDS AT THIS TIME. CALL LIGHT WITHIN REACH. BED RAILS UP.
--- NOTE | 2021-09-09 12:50 | NUR ---
THIS RN TO ROOM TO PREPARE PT FOR IMAGING. PT RESTING WITH EYES CLOSED ON BACK. PT AWAKENS TO VOICE AND LIGHT TOUCH. PT REPORTS 6/10 PAIN "EVERYWHERE" AND STATES "IT FELT GOOD TO SLEEP." PT DISORIENTED AT FIRST STATING "AREN'T YOU FROM [employer]." BUT REORIENTS EASILY AFTER AWAKENING. PORT ASSESSED, WNL. BRISK BLOOD RETURN NOTED. PORT SALINE LOCKED, ALCOHOL CAP APPLIED. PT ASSISTED WITH DEPENDS CHANGE. PT PERFORMS SELF MARLENA CARE AND CHANGES HER OWN DEPENDS. DEPENDS VERY SATURATED WITH URINE. PT VERBALIZES UNDERSTANDING OF PROCEEDURE AND STATES HER QUESTIONS HAVE BEEN ANSWERED. NO ADDITIONAL REQUESTS OR COMPLAINTS. AWAITING ARRIVAL OF IMAGING TECHNITIANS. CALL LIGHT WITHIN REACH. BED RAILS UP.
--- NOTE | 2021-09-09 12:56 | NUR ---
IMAGING TECHNITIANS ARRIVED. PT TRANSFERES SELF FROM BED TO WHEELCHAIR WITH STAND BY ASSIST. PT TO IMAGING DEPARTMENT. LINENS CHANGED.
--- NOTE | 2021-09-09 13:39 | NUR ---
AFTERNOON ASSESSMENT AND MEDICATION DUE. PT RETURNED FROM [facility]. PT ASKS ABOUT HER DIET ORDER AND WHAT SHE CAN HAVE TO EAT. PT ADVISED TO WAIT FOR THE DOCTORS ORDERS AND THE RESTULTS OF HER SCAN AND THEN HER DIET WILL BE ADVANCED. PT REPORTS [place] AND REQUESTS "PHENEGRAN AND MORPHING PUSHED FAST AT THE SAME TIME...THAT HELPS ME." PT REMIDED THAT PHENEGRAN IS NOT YET DUE. PT REPORTS 11/18 "EVERYWHERE PAIN" AND REQUESTS MORPHINE, SEE MAR FOR MEDICATION GIVEN. PT HAS TROUBLE FINDING WORDS AT TIMES AND CONTINUES TO APPEAR DROWSY. OXYGEN SATURATION OF 94% WITH RR OF 16. PORT ASSESSED, WNL. BRISK BLOOD RETURN NOTED. IV FLUIDS RESTARTED. PT REMAINS ORIENTED WHEN AWAKE. HEART TONES REGULAR. LUNG SOUNDS CLEAR. OSTOMY BAG REMAINS WNL, WITH LIGHT BROWN SOFT STOOL. AFTERNOON MEDICATIONS GIVEN WITH A SMALL SIP OF WATER. NO ADDITIONAL REQUESTS OR COMPLAINTS. CALL LIGHT WITHIN REACH. BED RAILS UP.
--- NOTE | 2021-09-09 14:12 | NUR ---
TIMO CASTRO IN CARING FOR PT. WILL CHECK BACK
--- NOTE | 2021-09-09 14:34 | NUR ---
THIS RN TO ROOM TO CHECK ON PT. PT RESTING IN SEMIFOWLER POSITION WITH HEAD OF BED ELEVATED TO 30 DEGREES, WITH EYES CLOSED. RESPIRATIONS EVEN AND UNLABORED. BED RAILS UP. CALL LIGHT WITHIN REACH. PT ALLOWED TO REST.
--- NOTE | 2021-09-09 15:08 | NUR ---
PT HERE FOR ELECTROLYTE IMBALANCES AND DEHYDRATION. PT REMAINS IN BED THIS SHIFT, DECLINES ALL OFFERS OF TIME OUT OF BED. PT IS ABLE TO TRANSFER SELF FROM BED TO WHEELCHAIR WITH STAND BY ASSIST. PT REMAINS NPO SINCE MIDNIGHT AND HAD A SWALLOW EVALUATION THIS SHIFT, AWAITING RESULTS. PT SWALLOWS PILLS AND SIPS OF WATER FOR MEDICATIONS WITH OUT ISSUE. OSTOMY BAG REMAINS IN PLACE WITH LIGHT BROWN SOFT OUTPUT. PT REMAINS INCONTINANT, PERFORMS DEPENDS CHANGES ON HER OWN. PT TOELRATING ROOM AIR. PRN PAIN MEDICATION GIVEN FOR 8/10 "EVERYWHERE" PAIN. PT VERY DROWSY THROUGOUT SHIFT, ORIENTED WHEN AWAKE. PORT A CATH REMAINS WNL WITH IV FLUIDS INFUSING. PT VOIDING QUANITTY SUFFICIENT. PT USES CALL LIGHT AND MAKES NEEDS KNOWN.
--- NOTE | 2021-09-09 15:24 | NUR ---
THIS RN TO ROOM TO CHECK ON PT. PT WORKING WITH PHYSICAL THERAPY. PT UP TO STAND AND MOVING ABOUT ROOM. NO ADDITIONAL NEEDS AT THIS TIME. CALL LIGHT WITHIN REACH.
--- NOTE | 2021-09-09 16:23 | NUR ---
MEDICATION DUE. DR RUIZ UPDATED AND SCAN RESULTS READ ALOUD TO MD. NEW ORDERS GIVEN TO DECREASE IV FLUIDS TO 50ML/HR PT IS TAKING FLUIDS AND WILL HAVE PUREED DIET FOR DINNER. ORDERS TO MAKE PT NPO AT MIDNIGHT. ORDERS ENTERED AND READ BACK PERFORMED. THIS RN TO ROOM. PT RESTING IN BED ON RIGHT SIDE WITH EYES CLOSED. RESPIRATIONS EVEN AND UNLABORED. PT AWAKENS TO VOICE AND LIGHT TOUCH. MEDICATIONS GIVEN. PT SWALLOWS PILLS AND WATER WITHOUT ISSUE. IV FLUIDS DECREASED TO 50ML/HR. ICE CHIPS PROVIDED PER PT REQUEST. PT DOES NOT MENTION PAIN OR NAUSEA. PT RESTING IN BED WATCHING TV, CONTINUES TO APPEAR DROWSY. PT VERBALIZES UNDERSTANDING OF PLAN OF CARE. NO ADDITONAL NEEDS CALL LIGHT WITHIN REACH. BED RAILS UP.
--- NOTE | 2021-09-09 17:40 | NUR ---
THIS RN TO ROOM TO CHECK ON PT. PT RESTING IN BED IN SEMIFOWLER POSITION LOOKING AT NEWSPAPER. PT DENIES REQUESTS OR COMPLAINTS. CALL LIGHT WITHIN REACH. BED RAILS UP. HEAD OF BED ELEVATED TO 20 DEGREES.
--- NOTE | 2021-09-09 18:54 | NUR ---
PATIENT GIVEN 4MG IV MORPHINE FOR 8/10 PAIN. PATIENT GIVEN 12.5MG OF IV PHENERGAN FOR NAUSEA.
--- NOTE | 2021-09-09 19:18 | NUR ---
IN ROOM FOR REPORT, PT IS RESTING WITH EYES CLOSED. RR IS EVEN AND UNLABORED. CALL LIGHT IS CLOSE.
--- NOTE | 2021-09-09 21:20 | NUR ---
IN ROOM TO ASSESS PT AND ADMINISTER MEDICATIONS. PT REPORTS PAIN 7/10 AT THIS TIME ADMINISTERED 4MG MORPHINE DILUTED IV SLOW PUSH. VS AND I&O'S ENTERED WITH JAIME GREENWOOD. PT DENIES SOB. SHE SWALLOWED HER SCHEDULED PILLS FINE WITH WATER. PT DENIES FURTHER NEEDS AT THIS TIME. CALL LIGHT IS CLOSE.
--- NOTE | 2021-09-09 23:10 | NUR ---
PT CALLED FOR MORE PAIN MEDICATION. PT WAS TOLD THAT IT WAS TOO SOON TO REPEAT. SHE SAID SHE COULD WAIT.
--- NOTE | 2021-09-09 23:59 | NUR ---
PATIENT RATES PAIN AT AN 8/10, PRN PAIN MEDICATON GIVEN PER ORDER. PATIENT REPORTS NAUSEA. REFUSES ZOFRAN WOULD LIKE PHENEGRAN. EDUCATED PATIENT ON NAUSEA MEDICATION. VERBALIZES UNDERSTANDING. REFUSES NAUSEA MEDICATION AT THIS TIME. CALL LIGHT IN REACH.
--- NOTE | 2021-09-10 00:38 | NUR ---
PT IS RESTING WITH EYES CLOSED, RR IS EVEN AND UNLABORED. CALL LIGHT IS CLOSE.
--- NOTE | 2021-09-10 02:02 | NUR ---
PT CALLED REQUESTING MORPHINE FOR 9/10 PAIN AND PHENERGAN "25MG" FOR NAUSEA. ADMINISTERED IV MORPHINE DILUTED SLOW PUSH AND PHENERGAN PROGRAMMED ON THE PUMP DILUTED IN 20MLS NS PER POLICY. PT DENIES SOB OR OTHER PROBLEMS/CONCERNS. CALL LIGHT IS CLOSE AND IV IS INFUSING FINE.
--- NOTE | 2021-09-10 03:17 | NUR ---
PT IS RESTING WITH EYES CLOSED, RR IS EVEN AND UNLABORED. CALL LIGHT IS CLOSE AND IV IS INFUSING FINE.
--- NOTE | 2021-09-10 06:00 | NUR ---
JANETT BLUE TOP BLOOD DRAW FROM LAB AFTER STOPPING IV FLUIDS FOR 2 MINUTES AND WATES 10ML OF BLOOD. PORT FLUSHES WELL AND IV FLUIDS ARE NOW INFUSING. TIMO SANDOVAL REMAINS IN THE ROOM WITH PT.
--- NOTE | 2021-09-10 07:25 | NUR ---
REPORT RECIEVED FROM NIGHT RN - OR HERE TO GET PT. VS COMPLETED, STABLE. CONSENT SIGNED. PT LEFT FLOOR FOR OR WITH STUDENT NURSE.
--- NOTE | 2021-09-10 09:11 | NUR ---
09/10/21 0911 Margoth Maloney 0845 PATIENT IN PACU. PATIENT AROUSABLE BY VERBAL STIMULI. PATIENT DENIES ANY PAIN OR NAUSEA. PATIENT IS ON 4 LITERS OF OXYGEN VIA NASAL CANNULA. VITALS WNL. BREATHING EQUAL AND UNLABORED. SUCTIONED PATIENT SMALL CLEAR SECREATIONS. 0850 PATIENT IS DROWSY. DENIES PAIN OR NAUSEA. PATIENT OXYGEN TITRATED DOWN TO 2 LITERS VIA NASAL CANNULA. BREATHING EQUAL AND UNLABORED. 0855 PATIENT TITRATED DOWN ON OXYGEN TO ROOM AIR. BREATHING EQUAL AND UNLABORD. PATIENT COMPLAINS OF 6/10 NECK AND BACK PAIN CHRONIC. 0900 DR. RUIZ AT BEDSIDE. PATIENT OXYGEN LEVELS WITHIN 88-90% BACK ON 2 LITERS.
--- NOTE | 2021-09-10 09:40 | NUR ---
pt arrived to floor from OR - report received, pt requesting pain and nausea medicaiton. - administered. pt requested meds to be "pushed as fast as you can, I want to get some sleep" - rn refuses and administers per pharm guidlines. 1 wet attends noted. vs stable. on 2L via nc for caution - desats noted in OR and morphine just administered. pt denies further needs, call light in reach.
--- NOTE | 2021-09-10 10:18 | NUR ---
rn holding am medicaions d/t pt fresh post op with no PO intake since surgery yet. will continue to reassess and administer when pt is swallowing without difficulty.
--- NOTE | 2021-09-10 10:23 | NUR ---
CONNECTED WITH PT IN DS AWAITING EGD. PT ADMITTED SHE IS DEPRESSED, HAD A DISAGREEMENT WITH HER FAMILY. GAVE COMFORT, PT REQUESTED PRAYER. WILL FOLLOW
--- NOTE | 2021-09-10 10:46 | NUR ---
RN IN ROOM TO OBTAIN POST OP VS HOUR 2 - STABLE. PT RESTING WITH EYES CLOSED, RR 16 BREATHS NOT SHALLOW HOWEVER. WILL REMOVE O2 AT THIS TIME. PT DENIES FURTHER NEEDS. CALL LIGHT IN REACH.
--- NOTE | 2021-09-10 11:45 | NUR ---
RN IN ROOM TO OBTAIN POST OP VITALS - HOUR 3. STABLE. PT RATES PAIN 6/10, NAUSEA IMPROVED. SCDS IN PLACE. IV SITE TOLERATING FLUIDS WIHTOUT DIFFICULTY. CALL LIGHT IN REACH.
--- NOTE | 2021-09-10 12:58 | NUR ---
TO BEDSIDE FOR MED PASS. PTY SITTING IN BED. REPORTS SHE SPILT TEA ON THE BED. CHUCKS CHANGED. PT SWALLOWED ONE PILL AT A TIME AND TOLERATED WELL. DENIES FURTHER NEEDS. CALL LIGHT IN REACH.
--- NOTE | 2021-09-10 14:50 | NUR ---
RN IN ROOM TO ASSESS PT - PT AWAKE AND WATCHING TV IN BED UPON ENTRY. PT REQUESTS PRN MORPHINE - NOTIFIED PT THAT IT WAS TOO SOON FOR ADMINISTRATION - THIS UPSETS PT. OSTOMY BAG EMPTIED BY PT. ATTENDS DRY AND NOT CHANGED. PT DENIES FURTHER NEEDS, CALL LIGHT IN REACH.
--- NOTE | 2021-09-10 15:34 | NUR ---
RN IN ROOM TO ADMINISTER PRN MORPHINE PER REQUEST. PT REQUESTS PRN PHENEGRAN WELL BUT TOO EARLY TO ADMINISTER. PT RESTING IN BED WATCHING TV. RATES PAIN 8/10 IN BACK. PT ABLE TO SWALLOW PO MEDS WITHOUT ANY DIFFICULTY. PT DENIES FURTHER NEEDS, CALL LIGHT IN REACH.
--- NOTE | 2021-09-10 17:05 | NUR ---
RN IN ROOM TO ADMINISTER SCHEDULED MEDICATIONS - PT AWAKE AND WATCHING TV UPON ENTRY. PT TOLERATING FULL LIQUID DINNER TRAY WITHOUT SWALLOWING DIFICULTY. PT DENIES FURTHER NEEDS, CALL LIGHT IN REACH.
--- NOTE | 2021-09-10 18:37 | NUR ---
PT REPORTING 8/10 PAIN IN BACK AND BONES. ALSO REPORTING SOME NAUSEA. 4MG MORPHINE ADMSITNERED ALONG WITH 4MG ZOFRAN. PT REPORTS ZOFRAN DOES NOT WORK AND REQUESTED PHENERGAN. PT AGREEABLE TO TRY ZOFRAN AND REASSESS.
--- NOTE | 2021-09-10 19:37 | NUR ---
PT REORT RECEIVED . AWAKE IN BED. TOLERATING FULLL LIQUIDS AFTER PROCEDURE. CALL LIGHT IN REACH. NO NEEDS .
--- NOTE | 2021-09-10 20:02 | NUR ---
PTP STATES SHE HAS NAUSEA UNRELIEVD BY ZOFRAN. PT IS GIVEN PHENERGAN SOW IV PUSH.
--- NOTE | 2021-09-10 20:21 | OR ---
[facility] [address], [place] [address] Signed DATE OF OPERATION: 09/10/2021 SURGEON: Talib Ruiz MD PREOPERATIVE DIAGNOSES: 1. Proximal esophageal dysphagia. 2. Mild proximal and distal esophageal narrowing. 3. History of Crohn disease. POSTOPERATIVE DIAGNOSES: 1. Proximal and distal esophageal strictures. 2. Small- to moderate-sized hiatal hernia. 3. Mild diffuse gastritis. PROCEDURES: Esophagogastroduodenoscopy with dilation (48-Albanian). ESTIMATED BLOOD LOSS: None. 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 She comes into the hospital intermittently for dehydration and electrolyte abnormalities. On this admission, she was complaining of recurrent esophageal dysphagia. She is pointing to the posterior oropharynx. She had two different barium swallows because the effort that she gave in the emergency room was minimal because she was dehydrated, not feeling well. There was some sense of a smooth mild stricture in the proximal esophagus and maybe one just above her hiatal hernia. She had initially been seen by Dr. Zhong. In his absence, I was asked to see her in cross coverage. I had met with Smita and reviewed her chart and reviewed the barium swallows. 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 Her INR finally is down to 1.44 this morning. I had explained to Smita the nature of an upper endoscopy, which she understands quite well. She knows there is risk including, but not limited to gas bloating, crampy abdominal pain, bleeding, perforation requiring surgery, and missed diagnosis. She had expressed understanding and wished to proceed. DESCRIPTION OF PROCEDURE: Smita was taken into our endoscopy suite and placed in a supine semi-recumbent position. She was given monitored anesthesia care with propofol per our nurse handbag parts cutter. The posterior oropharynx was anesthetized with lidocaine spray. A bite block was utilized Electronically Signed By: TALIB RUIZ MD 09/10/212020 PATIENT NAME: SMITA HARTLEY OPERATIVE REPORT DATE OF : 55 REPORT #: [id number] PHYSICIAN: TALIB RUIZ MD PCP: NICHOLE FLORES MD REPORT IS CONFIDENTIAL AND NOT TO BE RELEASED WITHOUT AUTHORIZATION [facility] [address], [place] [address] Signed for the case. The adult gastroscope was introduced and sure enough I felt just a little resistance as I passed into the upper esophagus. The middle esophagus was unremarkable. As I approached the hiatal hernia, she may have what looks like a Schatzki's ring. Although the scope passed through quite readily. We went and passed the scope about the third portion of the duodenum. The duodenum and pyloric channel were completely unremarkable. She had some mild diffuse gastritis. We did not take any biopsies today in the stomach nor did we take a CLOtest. Upon retroflexion of scope, I can see she has a small- to moderate-sized hiatal hernia. After this, we were able to pass the wire through the scope out in the antrum of the stomach. The scope had been withdrawn. The bite block was removed. A well-lubricated 48-Albanian Moroccan dilator was passed over the wire and we felt gentle resistance as we came through the posterior oropharynx into the proximal esophagus. Then, the dilator actually passed quite readily all the way up to 50 cm. I really did not feel much of any resistance in the distal esophagus. After this, the wire and dilator had been removed. The bite block was replaced. The adult gastroscope was reintroduced and passed down into the stomach once again. The stomach in the hiatal hernia was unremarkable. Really did not see much in the distal esophagus. There was some blood in that area and we did irrigate, but we could see a classic linear break in the mucosa from the dilation. There was too much blood in that area. The middle and upper esophagus were unremarkable. As we withdrew the scope through the very upper proximal esophagus, we could see the classic linear break in the mucosa, where we felt the resistance both with the gastroscope and with the dilator. There was good hemostasis. After this, the gas had been suctioned out and the gastroscope removed. We had taken pictures throughout for photodocumentation. RECOMMENDATIONS: Smita will be returned to her room, started on full liquid diet. She can resume her usual dose of Coumadin 7 days from now. She will follow up with her body artist in a month or two for her usual followup. Talib Ruiz MD ALB/MODL /[id number] cc: Nichole Flores MD Electronically Signed By: TALIB RUIZ MD 09/10/212020 PATIENT NAME: SMITA HARTLEY OPERATIVE REPORT DATE OF : 55 REPORT #: [id number] PHYSICIAN: TALIB RUIZ MD PCP: NICHOLE FLORES MD REPORT IS CONFIDENTIAL AND NOT TO BE RELEASED WITHOUT AUTHORIZATION [facility] [address] [place], [place] [address] Signed Patient Chart Talib Ruiz MD Copies: TALIB RUIZ MD ~ Electronically Signed By: TALIB RUIZ MD 09/10/212020 PATIENT NAME: SMITA HARTLEY OPERATIVE REPORT DATE OF : 55 REPORT #: [id number] PHYSICIAN: TALIB RUIZ MD PCP: NICHOLE FLORES MD REPORT IS CONFIDENTIAL AND NOT TO BE RELEASED WITHOUT AUTHORIZATION
--- NOTE | 2021-09-10 22:48 | NUR ---
WENT IN TO REASSESS PTS PAIN AFTER 4 MG IV MORPHINE WAS GIVEN ABOUT AN HOUR AGO. PT IS SLEEPING QIIUETLY. DID NOT DISTURB HER. CALL LIGHT IS WITHIN REACH.
--- NOTE | 2021-09-10 23:10 | NUR ---
PT CALLED FOR ADDITIONAL PAIN MEDICATION. INFORMED THAT IT WAS TOO SOON, PT SAID SHE COULD WAIT.
--- NOTE | 2021-09-11 01:40 | NUR ---
PT APPEARS TO BE SLEEPING QUIETLY. DID NOT AWAKEN HER. CALL LIGHT IN REACH.
--- NOTE | 2021-09-11 06:54 | NUR ---
PT HAS BEEN ABLE TO TOLERATE FULL LIQUIDS AND TAKE HER ORAL MEDS WITHOUT DIFFICULTY. SHE HAD A SORE THROAT FROM HER PROCEDURE BUT THIS HAS RESOLVED. PT HAD HER LABS DRAWN BY THIS RN FROM HER PORT.SHE HAD PAIN MEDICATION X3 .PT WAS ABLE TO SLEEP WELL .
--- NOTE | 2021-09-11 10:01 | NUR ---
RN IN ROOM WITH STUDENT NURSE TO ASSESS PT AND ADMINISTER SCHEDULED MEDICATIONS. ASSESSMENT UNCHANGED FROM PREVIOUS SHIFT. PRN MORPHINE ADMINISTERED PER PT REQUEST FOR PAIN - PT ASKED STUDENT TO "JUST PUSH IT" WHEN RN HAD BACK TURNED AFTER PT HAD BEEN EDUCATED THAT SHE WOULD BE PUSHING IT ACCORDING TO GUIDLINE STATED TIMES OF ADMINISTRATION. CALL LIGHT IN REACH.
--- NOTE | 2021-09-11 11:58 | NUR ---
RN ROUNDING ON PT - RESTING IN BED, WAKES EASILY TO SOUND, LUNCH TRAY DELIVERED, PT DENIES FURTHER NEEDS. CALL LIGHT IN REACH.
--- NOTE | 2021-09-11 12:27 | NUR ---
RN IN ROOM TO ADMINISTER SCHEDULED MEDS. PT FINISHED LUNCH TRAY WIHTOUT DIFFICULTY SWALLOWING. PT ASKS FOR PRN MORPHINE - ADMINISTERED. CALL LIGHT IN REACH.
--- NOTE | 2021-09-11 14:50 | NUR ---
RN IN ROOM TO ASSESS PT - PT RESTING WITH EYES CLOSED UPON ENTRY - WAKES EASILY WITH SOUND/TOUCH. ASSESSMENT UNCHANGED, NAUSEA NOTED - TOO SOON FOR PRN OF CHOICE, REFUSES ZOFRAN AT THIS TIME. PT EDUCATED TO CONSUME SMALL PORTIONS OF LIQUID AND LET TIME PASS BETWEEN SIPS. PT STATES SHE FEELS LIKE HER STOMACH IS NOT EMPTYING-DID DRINK MORE THAN 16OZ OF SOUP AND ENSURE ON LUNCH TRAY. PT REQUETS PRN MORPHINE FOR 9/10 PAIN THAT IS "ALL OVER".
--- NOTE | 2021-09-11 16:31 | NUR ---
RN IN ROOM TO ADMINISTER PRN NAUSEA MED - PT USES CALL LIGHT TO REPORT EMESIS, UNWITNESSED AMOUNT - PT STATES APPROX 200 ML. PT STATES SHE THINKS THIS WAS CAUSED BY DRINKING SOME OF THE SWEET DRINK HER BROUGHT IN. WILL HOLD SCHEDULED MEDS DUE NOW UNTIL NAUSEA IS REASSESSED. PT NOW VISITING WITH AT BEDSIDE. CALL LIGHT IN REACH.
--- NOTE | 2021-09-11 17:49 | NUR ---
RN IN ROOM TO REASSESS PT NAUSEA - STATES IT IS IMPROVED, SIPPING TEA FROM DINNER TRAY. PT REQUESTS ADDITIONAL PRN MORPHINE - NOT AVAILABLE YET. SCHEDULED MEDS ADMINISTERED NOW THAT NAUSEA HAS IMPROVED. SWALLOWED WITHOUT DIFFICULTY.
--- NOTE | 2021-09-11 18:57 | NUR ---
PT REQUESTS PRN PAIN MEDICATIONS - PT EDUCATED THAT IT WAS STILL TOO SOON NEW ORDER IS Q4H. PT STATES UNDERSTANDING.
--- NOTE | 2021-09-11 19:48 | NUR ---
REPORT RECEIVED. PT HAS AN ORDER FOR a ua. as she is incontinent of urine REPORT RECEIVED. PT HAS ORDER FOR UA AND SHE IS INCONTINENT A WEE BAG WILL BE PLACED. PLAN IS TO DC TOMORROW. PT HAS CALL LIGHT IN REACH.
--- NOTE | 2021-09-11 21:33 | NUR ---
PT HAS A UA ORDERED. WAS UNABLE TO COLLECT SUFFICIENT URINE FOR LAB TEST. PT WAS SSTRAIGHT CATHED FOR 200 MLS URINE . SAMPLE LABELED AND SENT TO LAB
--- NOTE | 2021-09-11 21:40 | NUR ---
PT TOLERATED STRAIGHT CATH PROCEDURE WELL. PAD CHANGED. CALLL LIGHT IN REACH.
--- NOTE | 2021-09-11 22:32 | NUR ---
PT STATES SHE HAS NAUSEA . ZOFRAN IS INEFFECTIVE. PT GIVEN ZOFRAN 25 MG SLOW IVP.
--- NOTE | 2021-09-11 22:46 | NUR ---
PT COMPLAINED OF NAUSEA. SHE IS ENCOURAGED TO TAKE SMALLER PORTIONS AND SIT MORE UPRIGHT WHEN EATING. PHENERGAN IV GIVEN. PT HAS CALL LIGHT IN REACH. GIVEN A CUP OF ICE CHIPS. NO OTHER NEEDS.
--- NOTE | 2021-09-12 00:08 | NUR ---
PT IS SLEEPING QUIETLY. SHE HAS HER CALLL LIGHT IN REACH. DID NOT AWAKEN PT .
--- NOTE | 2021-09-12 01:50 | NUR ---
ASSISTED PT TO CHANGE HER MARLENA PAD. SHE IS ABLE TO ASSIST AND LIFT HER HIPS, PROVIDE OWN MARLENA CARE.
--- NOTE | 2021-09-12 06:09 | NUR ---
PT IS ABLE TO SWALLOW HER FULL LIQUID DIET. SHE WAS CAUTIONED NOT TO OVER EAT SHE THEN HAS NAUSEA.PT HAD PHENERGAN X1 DOSE AND MORPHINE X2 FOR PAIN. SHE HAD A UA SENT WITH NO REFLEX CULTURE INDICATED.
--- NOTE | 2021-09-12 07:25 | NUR ---
Bedside report received from [facility] RN Demetra. Pt is sleeping on her R side. IVF at 50 ml/hr. Bag is almost empty - Demetra offered to change it as she had to draw labs from Pt's port as well.
--- NOTE | 2021-09-12 07:46 | NUR ---
PT COMPLAINS OF PAIN , GENERALIZED, IN BONES. SHE IS GIVEN MORPHINE FOR PAIN. PT DID REQUEST PHENERGAN BUT SHE WAS TOLD SHE MUST TRY THE ZOFRAN TO SEE IF THAT WOULD BE EFFECTIVE. SHE STATED, JUST TELL ME WHEN I CAN HAVE THE PHENERGAN.
--- NOTE | 2021-09-12 08:55 | NUR ---
Pt requested Phenergan. Stated Zofran doesn't help. Pt was educated on anti-emetics protocol. She asked if this curriculum writer could come back with Phenergan in 30 min. Pt was advised this curriculum writer would come and check on Pt in 30 min and if no relief from Zofran, Phenergan would be provided.
--- NOTE | 2021-09-12 09:35 | NUR ---
Pt called multiple times to request Phenergan from different staff members, despite being assured by bedside RN she'd bring it shortly.
[2021-09-12] MEDS ORDERED: BACTRIM 400-801 EACH PO (10:34)
--- NOTE | 2021-09-12 11:15 | NUR ---
Pt requested bedside RN to contact her spouse re: discharge and ride home. She didn't remember his phone number. notified of above and stated he'd be here shortly.
== END 2021-09-12 12:45 | disposition home or self-care (01) | DRG 683 ==
LOC: ED 23:25 → CCU 23:26 → MS 09-03 10:13 → CCU 09-03 10:13 → MS 09-03 19:45
PROVIDERS: Colon & Rectal Surgery; ADMIT Internal Medicine; ATTEND Internal Medicine
PROC: 0D718ZZ Dilation of Upper Esophagus, Via Natural or Artificial Opening Endoscopic (ICD-10-PCS; principal; 2021-09-10 08:15)
DX: N17.9 Acute kidney failure, unspecified (principal); N30.00 Acute cystitis without hematuria; F11.20 Opioid dependence, uncomplicated; I50.22 Chronic systolic (congestive) heart failure; D68.9 Coagulation defect, unspecified; K51.90 Ulcerative colitis, unspecified, without complications; K22.2 Esophageal obstruction; Z20.822 Contact with and (suspected) exposure to COVID-19; E83.42 Hypomagnesemia; E87.6 Hypokalemia; E83.51 Hypocalcemia; E55.9 Vitamin D deficiency, unspecified; G47.00 Insomnia, unspecified; R13.14 Dysphagia, pharyngoesophageal phase; K44.9 Diaphragmatic hernia without obstruction or gangrene; B95.2 Enterococcus as the cause of diseases classified elsewhere; G89.4 Chronic pain syndrome; K29.70 Gastritis, unspecified, without bleeding; E86.0 Dehydration; N32.81 Overactive bladder; Z87.440 Personal history of urinary (tract) infections; Z86.718 Personal history of other venous thrombosis and embolism; Z87.01 Personal history of pneumonia (recurrent); Z88.0 Allergy status to penicillin; Z88.6 Allergy status to analgesic agent; Z88.8 Allergy status to other drugs, medicaments and biological substances
CPT/HCPCS: 00731; 36415; 51701; 71045; 74230; 74246; 80048; 80053; 81001; 82306; 83690; 83735; 84100; 85025; 85610; 85730; 87077; 87088; 87502; 96365; 96376; 97116; 97162; 97530; 99285-25; A9270; C9803; G0378; J0692; J2001; J2270; J2405; J2550; J2704; J3475; J3480; J7030; J7060; J7121; U0003

== ENCOUNTER 2021-11-09 22:37 | Inpatient (IN) | payer MEDICARE ==
[~2021-11-09] VITALS: Ht 172.7 cm; Wt 54.2 kg
[~2021-11-09 22:37] MED LIST changes: +BACTRIM 400-801 EACH PO
[2021-11-09] MEDS ORDERED: WARFARIN SODIUM3 MG PO (23:14)
--- NOTE | 2021-11-10 02:30 | NUR ---
CRITICAL LAB VALUE CALLED FROM LAB. PT HAS MAGNESIUM OF 0.2. DR. REHMAN NOTIFIED AT THIS TIME, NEW ORDERS TO BE PLACED BY HIM, WILL CONTINUE PLAN OF CARE.
--- NOTE | 2021-11-10 03:29 | NUR ---
PT ARRIVED DROWSY/LETHARGIC ON 2L O2 NC, LEVOPHED TITRATING AT 11MCG/MIN. PT ASSISSTED IN TRANSFERRING OVER TO BED. VITALS THEN TAKEN (SEE CHART). LEVOPHED INCREASED TO 13 MCG/MIN DUE TO MAPS BELOW 65 (SEE CHART). SCHEDULED IV ABX THEN STARTED AND INFUSING ORDERED (SEE MAR). ASSESSMENT THEN COMPLETED. PT LETHARGIC/DROWSY, SLOWLY AWAKES TO VOICE AND IS ORIENTED TO SELF AND SURROUNDINGS. PT UNABLE TO ANSWER REMAINING HISTORY QUESTIONS AT THIS TIME. HEART RYTHM TACHYCARDIC BUT REGULAR, LUNGS CLEAR IN UPPER LOBES BILATERALLY AND FINE CRACKLES IN THE BASES. PT ON 2L O2 NC. ABDOMEN SOFT, ACTIVE BOWEL TONES PRESENT, OSTOMY SITE PRESENT, C/D/I, LIQUID BM PRESENT IN OSTOMY BAG. PULSES STRONG, CAPILLARY REFILL BRISK, EXTREMITIES COOL. SKIN INTACT. MEEHAN DRAINING CONCENTRATED, CLOUDY URINE. PT AWOKE BRIEFLY AFTER ASSESSMENT REQUESTED PRN MEDICATION FOR NAUSEA, PRN ZOFRAN ADMINISTERED (SEE MAR). PT NOW RESTING IN BED RESTING WITH EYES CLOSED, BED IN LOWEST POSITION, WILL CONTINUE PLAN OF CARE AND ADMINISTER SCHEDULED MEDICATIONS ONCE THEY ARE AVAILABLE.
--- NOTE | 2021-11-10 04:06 | NUR ---
PT REMAINS RESTING IN THE BED DROWSY/LETHARGIC. LEVOPHED TITRATED UP TO 15 MCG/MIN DUE TO MAPS BELOW 65 (SEE MAR). STEM PROCESSING MACHINE OPERATOR WINNIE IN ROOM AND WAS ABLE TO PLACE A 20G ULTRASOUND IV IN RIGHT AC. REMAINING IV MEDICATIONS ADMINISTERED ORDERED (SEE MAR). LR + 40K, MAGNESIUM, AND CALCIUM INFUSING AT ORDERED RATES (SEE MAR). IV ABX COMPLETED AT THIS TIME. PT REMAINS RESTING IN BED, DROWSY/LETHARGIC. NO FURTHER NEEDS ASSESSED AT THIS TIME, PT IN NO APPARENT DISTRESS. CALL LIGHT IN REACH, BED IN LOWEST POSITION, BED ALARM ON, WILL CONTINUE PLAN OF CARE.
--- NOTE | 2021-11-10 04:48 | NUR ---
URINE SAMPLE COLLECTED FROM MEEHAN AND SENT TO LAB. LEVOPHED ALSO TITRATED UP TO 17 MCG/MIN DUE TO MAPS BELOW 65 MMHG. PT REMAINS RESTING IN BED, IVF AND IV MAGNESIUM INFUSING, IV CALCIUM COMPLETED. NO FURTHER NEEDS ASSESSED AT THIS TIME, PT REMAINS RESTING IN BED, WILL CONTINUE PLAN OF CARE.
--- NOTE | 2021-11-10 06:31 | NUR ---
PT REMAINS RESTING IN BED LETHARGIC/DROWSY. PT AWAKES BRIEFLY BUT CLOSES EYES SHORTLY AFTER. VITALS TAKEN AT THIS TIME (SEE CHART). LEVOPHED DRIP STILL AT 17MCG/MIN. LR + 40K AND IV MAGNESIUM INFUSING ORDERED. SCHEDULED PROTONIX ADMINISTERED AT THIS TIME (SEE MAR). MEEHAN DRAINING CLOUDY URINE . PT IN NO APPARENT DISTRESS AT THIS TIME AND REMAINS ON 2L O2 NC. MAPS MAINTAINING ABOVE 65MMHG. WILL CONTINUE PLAN OF CARE. CALL LIGHT IN REACH, BED IN LOWEST POSITION, BED ALARM ON.
[2021-11-10] MEDS ORDERED: MAG-OXIDE400 MG PO (07:56)
[2021-11-10] MEDS ORDERED: SULFAMETHOXAZO1 EACH PO (07:57)
--- NOTE | 2021-11-10 08:37 | NUR ---
IN PATIENT'S ROOM FOR ASSESSMENT, COREMAKING MACHINE SETTER, BLOOD DRAW, AND VITALS. HOURLY URINE WAS 80 ML AT 0800. PT RESTING, LEANING TOWARDS RIGHT SIDE, APPEARS COMFORTABLE AND IN NO ACUTE DISTRESS. PT AWAKENS EASILY TO VOICE AND STATES SHE IS THIRSTY. ICE WATER PROVIDED. IV CALCIUM STARTED. IV IN RIGHT UPPER ARM NOTED TO BE INFILTRATED. THIS IV D/C. LABS DRAWN FROM PORT AND 9 ML WASTE WAS WASTED. PORT FLUSHING AND DRAWING EASILY. NOREPI STARTED AT 17 MCG/MIN BUT NOW INFUSING AT 14 MCG/MIN. WILL CONTINUE TO MONITOR BP AND TITRATE ACCORDINGLY.
--- NOTE | 2021-11-10 09:29 | NUR ---
PATIENT ABLE TO EAT JELLO AND DRINK TEA. PT'S RIGHT ARM SWOLLEN FROM INFILTRATION, BUT DENIES WANTING A WARM PACK AT THIS TIME. LEVOPHED INFUSING AT 11 MCG/MIN AT THIS TIME. WILL CONTINUE TO MONITOR.
--- NOTE | 2021-11-10 09:53 | NUR ---
SCHEDULED MED PROVIDED. NO OTHER NEEDS AT THIS TIME. CALL LIGHT IN REACH.
--- NOTE | 2021-11-10 10:41 | NUR ---
PATIENT CONTINUES TO REST AT THIS TIME. PT HAS BEEN DRINKING TEA, WATER, AND EATING JELLO. PT TOLERATING WELL. LEVOPHED REMAINS AT 11 MCG/MIN. LAST BP 87/60 (70). CONTINUE TO MONITOR.
--- NOTE | 2021-11-10 15:35 | NUR ---
PATIENT RESTING IN BED. BEDBATH PROVIDED BY THIS INFRASTRUCTURE ANALYST AND RN. MEEHAN CARE PROVIDED. PATIENT NOW RESTING ON LEFT SIDE. CALL LIGHT IN EASY REACH
--- NOTE | 2021-11-10 15:55 | NUR ---
PATIENT'S ARRIVES AND EXPRESSES CONCERNS TO THIS RN ABOUT PATIENT'S CONDITION AND HER HISTORY OF NAUSEA SINCE HER LAST ADMISSION. PT AND BOTH STATE THAT WHEN SHE WAS D/C LAST TIME, SHE WAS SENT HOME ON AN ANTIBIOTIC THAT MADE HER HORRIBLY NAUSEOUS, AND SHE ENDED UP NOT EATING/DRINKING WELL. PT'S ALSO BRINGS UP HISTORY OF WHEN "SHE HAD SORES IN HER MOUTH, AND WE WERE TOLD MANY TIMES THAT NOTHING COULD BE DONE ABOUT HER SORES, UNTIL SOMEONE FINALLY LOOKED AT HER ESOPHAGUS AT [facility], AND IT WASN'T THE SORES, BUT AN ESOPHAGEAL STRICTURE, THAT TOOK TEN MINUTES TO FIX. SHE LOST 50 LBS IN THAT WHOLE ORDEAL, AND I DON'T WANT THIS TO END UP LIKE THAT AGAIN." EXPRESSED UNDERSTANDING TO PT'S ABOUT HOW FRUSTRATING THIS MUST HAVE BEEN, AND THEN DISCUSSED PT'S CURRENT CLINICAL CONDITION/SIGNS AND SYMPTOMS THAT ARE IMPROVING. PT HAS YET TO HAVE ANY NAUSEA TODAY. PT AWAKENS AND TELLS , "I'M FEELING A LOT BETTER HONEY." DISCUSSED PT'S LAB VALUES AND HOW WHERE THEY ARE TRENDING NOW COMPARED TO WHERE THEY WERE UPON ER ARRIVAL YESTERDAY. ALSO DISCUSSED PT'S KIDNEY FUNCTION LABS, AND HOW FAR OFF FROM HER NORMAL THOSE WERE. CURRENTLY, PT IS RECEIVING LR WITH 40 KCL AT 125 ML/HR, CALCIUM CHLORIDE INFUSION, AND HER 3RD BAG OF 20 MEQ POTASSIUM WHICH IS HER THIRD OF THREE BAGS TO INFUSE. PT REMAINS ON LEVOHPED AT 8 MCG/MIN AT THIS TIME, AND LAST BP 88/58 (69). WILL CONTINUE TO MONITOR CLOSELY. PT ON ROOM AIR.
--- NOTE | 2021-11-10 17:31 | NUR ---
TALKED WITH DR. REHMAN ON THE PHONE REGARDING PATIENT'S DIET BEING ADVANCED, AND ALSO PATIENT'S 'S CONCERNS. DIET TO BE ADVANCED TO A PUREED DIET AND ORDER PLACED WITH KITCHEN. UPDATED DR. REHMAN THAT PATIENT REMAINS ON LEVOPHED AT 10 MCG/MIN. WILL CONTINUE TO MONITOR.
--- NOTE | 2021-11-10 18:26 | NUR ---
DR. REHMAN IN ROOM TO SEE PATIENT. PT;'S SON HAS ALSO ARRIVED. PT REMAINS ON LEVOPHED, STILL INFUSING 8-10 MCG/MIN. WILL CONTINUE TO MONITOR AT THIS TIME.
--- NOTE | 2021-11-10 19:30 | NUR ---
REPORT RECEIVED FROM COLE RN, WILL CONTINUE PLAN OF CARE.
--- NOTE | 2021-11-10 19:52 | NUR ---
PT LAYING IN BED AWAKE AND ALERT WITH HER SON IN THE ROOM. LEVOPHED AT 8MCG/MIN, IVF INFUSING ORDERED. PT ALERT AND ORIENTED AT THIS TIME. IVF RATE CHANGED TO 85ML/HR PER MD ORDERS AT THIS TIME. VITALS THEN TAKEN AND ASSESSMENT COMPLETED. I/O'S ACCOUNTED FOR AT THIS TIME (SEE CHART). ILEOSTOMY EMPTIED BY LUKASZ AGRAWAL. ASSESSMENT THEN COMPLETED. PT ALERT, ORIENTED X4. HEART RYTHM REGULAR AND TACHYCARDIC, LUNGS CLEAR IN UPPER LOBES. RIGHT LOWER LOBE CLEAR, LEFT LOWER LOBE CONTAINS FINE CRACKLES. PT DENIES SHORTNESS OF BREATH WHEN ASKED. PT RADIAL AND PEDAL PULSES +1, PT REPORTS NUMBNESS AND TINGLING THAT IS CHRONIC. AFTER ASSESSMENT PT WAS NOTED TO DESATURATE TO 83-88% ON ROOM AIR. PT DENIED SHORTNESS OF BREATH AND WAS PLACED ON 2L O2 NC. PT NOW RESTING IN BED AND REPORTS NO FURTHER NEEDS AT THIS TIME WHEN ASKED. CALL LIGHT IN REACH, BED IN LOWEST POSITION, WILL CONTINUE PLAN OF CARE.
--- NOTE | 2021-11-10 21:26 | NUR ---
PT REMAINS IN BED RESTING WITH EYES CLOSED. LEVOPHED INFUSING AT MCG/MIN, MAPS MAINTAINING AT 65-70 MMHG. SBP 80-90'S. PT IN NO APPARENT DISTRESS AT THIS TIME ON 2L O2 NC, IVF INFUSING. SCHEDULED IV ABX STARTED AND NOW INFUSING AT ORDERED RATE. NO FURTHER NEEDS ASSESSED A THTIS TIME. CALL LIGHT IN REACH, BED IN LOWEST POSTIION, WILL CONTINUE PLAN OF CARE.
--- NOTE | 2021-11-11 00:07 | NUR ---
PT LAYING IN BED RESTING WITH EYES CLOSED ON 2L O2 NC, LEVOPHED REMAINS AT 8MCG/MIN, IVF INFUSING AT ORDERED RATE. PT AWOKE BRIEFLY AND REPORTED NO NEEDS. VITALS TAKEN DURING THIS TIME AND ASSESSMENT COMPLETED (SEE CHART). LUNGS CLEAR IN UPPER LOBES, DIMINISHED AND CLEAR IN THE BASES. HEART RYTHM REGULAR AND TACHYCARDIC, ABDOMEN SOFT, ILEOSTOMY SITE C/D/I AND DRAINING BROWN SEMISOFT STOOL/DRAINAGE. PULSES STRONG, CAPILLARY REFILL BRISK. MEEHAN DRAINING CLOUDY URINE. PT REMAINS RESTING IN BED, IN NO APPARENT DISTRESS. PT PLACED ON ROOM AIR AT THIS TIME SPO2 WAS 97-99%. SPO2 NOW AT 95% AND MAINTAINING. NO FURTHER NEEDS ASSESSED AT THIS TIME. CALL LIGHT IN REACH, BED IN LOWEST POSITION, WILL CONTINUE PLAN OF CARE.
--- NOTE | 2021-11-11 02:17 | NUR ---
PT NOTED TO BE DESATURATING TO 86-88% ON ROOM AIR. PT PLACED ON 2L O2 NC AT THIS TIME. PT REMAINS RESTING IN BED WITH HER EYES CLOSED IN NO APPARENT DISTRESS, RESPIRATIONS UNLABORED. LEVOPHED REMAINS AT 8 MCG/MIN, IVF INFUSING AT ORDERED RATE. MAPS REMAINING 65-70 MMHG. PT LEFT UNDISTURBED AT THIS TIME, CALL LIGHT IN REACH, BED IN LOWEST POSITION, WILL CONTINUE PLAN OF CARE.
--- NOTE | 2021-11-11 02:58 | NUR ---
PT RESTING IN BED WITH EYES CLOSED. PT REMAINS ON 2L O2 NC, LEVOPHED AT 8MCG/MIN, IVF INFUSING ORDERED. NEW BAG OF LEVOPHED STARTED AND NOW INFUSING, SCHEDULED IV CALCIUM GLUCONATE STARTED AND INFUSING ORDERED. PT IN NO APPARENT DISTRESS AT THIS TIME AND WAS LEFT UNDISTURBED. CALL LIGHT IN REACH, WILL CONTINUE PLAN OF CARE.
--- NOTE | 2021-11-11 03:37 | NUR ---
PT USED CALL LIGHT AT THIS TIME. PT AWAKE IN BED ON 2L, IV LEVOPHED AND IVF INFUSING AT PREVIOUS RATES. PT REPORTED HAVING NAUSEA AND REQUESTED PRN PHENERGAN. PRN PHENERGAN ADMINISTERED INTO PT'S PORT (SEE MAR). PT REPORTS NO FURTHER NEEDS. VITALS ASSESSED AT THIS TIME AND ASSESSMENT COMPLETED (SEE CHART). PT REMAINS RESTING IN BED. CALL LIGHT IN REACH, BED IN LOWEST POSITION, WILL CONTINUE PLAN OF CARE.
--- NOTE | 2021-11-11 05:00 | NUR ---
PT LAYING IN BED RESTING WITH HER EYES CLOSED AT THIS TIME ON 2L O2 NC. PT REMAINS ON IVF AND 8MCG/MIN OF LEVOPHED. PT IN NO APPARENT DISTRESS, RESPIRATIONS UNLABORED, PT LEFT UNDISTURBED AT THIS TIME. WILL CONTINUE PLAN OF CARE.
--- NOTE | 2021-11-11 05:30 | NUR ---
PT REMAINS RESTING IN BED ON 2L IVF AND LEVOPHED AT PREVIOUS RATES. PT AWOKE AND WAS ORIENTED. LABS DRAWN FROM PT'S PORT SITE AND SENT TO LAB. PT REPORTS NO NEEDS WHEN ASKED AT THIS TIME AND REMAINS RESTING IN BED. CALL LIGHT IN REACH, WILL CONTINUE PLAN OF CARE.
--- NOTE | 2021-11-11 06:21 | NUR ---
PT RESTING IN BED AWAKE AND ALERT AT THIS TIME ON 2L O2 NC, IVF AND LEVOPHED RATES UNCHANGED. REMAINING LAB DRAWN FROM PORT AT THIS TIME. PT REPORTS NO NEEDS WHEN ASKED AT THIS TIME. MEEHAN DRAINING CLOUDY URINE, OSTOMY SITE CONTAINS BROWN FLUID. PT TAKEN OFF OF OXYGEN AT THIS TIME AND IS NOW ON ROOM AIR, SPO2 91-93%. PT DENIES SHORTNESS OF BREATH WHEN ASKED. PT REPORTS NO FURTHER NEEDS AT THIS TIME, CALL LIGHT IN REACH, BED IN LOWEST POSITION, WILL CONTINUE PLAN OF CARE.
--- NOTE | 2021-11-11 07:53 | NUR ---
IN PATIENT'S ROOM PATIENT PLACES CALL LIGHT ON AND REQUESTING PHENERGAN. PRN PHENERGAN GIVEN (SEE EMAR). PT STATES SHE WOULD LIKE THIS BEFORE BREAKFAST. ASSESSMENT COMPLETE. PT LOOKS BETTER TODAY VS YESTERDAY AND STATES SHE FEELS BETTER, HOWEVER IS STILL HAVING HER BACK PAIN. REPOSITIONED IN BED AND BOOSTED X 2 PERSON ASSIST. IVF ARE INFUSING AT 85 ML/HR AND LEVOPHED REMAINS INFUSING AT 6 MCG/MIN, WHICH WAS TURNED DOWN FROM 8 THIS AM. URINE DILUTE IN MEEHAN BAG AND QS. WILL CONTINUE TO MONITOR CLOSELY AND TITRATE LEVOPHED ACCORDINGLY TO KEEP MAP >65.
--- NOTE | 2021-11-11 08:20 | NUR ---
UPdate from RN as pt is sleeping. Pt slightly better, MG remains low, cont. with UTI.
--- NOTE | 2021-11-11 10:15 | NUR ---
PATIENT RESTING AT THIS TIME IN BED. PT REMAINS ON 8 MCG/MIN OF LEVOPHED AND LAST BP 86/62 (72). WILL TITRATE DOWN TO 7 MCG/MIN.
--- NOTE | 2021-11-11 12:21 | NUR ---
PATIENT'S ARRIVES. PT HAS BEEN RESTING MOST OF THE MORNING. PATIENT STARTS TO HAVE NAUSEA AND DRY HEAVES, WHICH IS THE FIRST TIME TODAY SHE HAS HAD THIS. PRN ZOFRAN GIVEN (SEE EMAR). PT REQUESTING PHENERGAN, BUT DISCUSSED WITH PATIENT THAT WE NEED TO GIVE ZOFRAN FIRST, THEN COMPAZINE, AND THEN PHENERGAN IS NAUSEA IS STILL PRESENT. PT ABLE TO TAKE BITES OF HER SOUP. PT'S EATING HAMBURGER IN ROOM WHICH IS VERY FRAGRANT WELL. UPDATE GIVEN TO ON PATIENT'S CURRENT CONDITION, ELECTROLYTES, AND CONTINUED PLAN OF CARE. WILL CONTINUE TO MONITOR.
--- NOTE | 2021-11-11 15:06 | NUR ---
PT CONTINUES TO REST/SLEEP. RR EVEN AND UNLABORED. NOREPI GTT NOW INFUSING AT 4 MCG/MIN. WILL CONTINUE TO TITRATE DOWN TOLERATED. LAST BP 82/62 (70). HR 110s. SODIUM BICARB INFUSING AT 65 ML/HR, LR WITH 20 KCL INFUSING AT 20 ML/HR FOR A TOTAL OF 85 ML/HR. IV MAG INFUSING.
--- NOTE | 2021-11-11 15:50 | NUR ---
PATIENT PLACED BACK ON 2 L NC WHILE RESTING. SP02 STAYING 86-87% ON ROOM AIR. CONTINUE TO MONITOR.
--- NOTE | 2021-11-11 17:59 | NUR ---
BED BATH PROVIDED AND LINEN CHANGED. PT TOLERATED WELL. PT NOW LAYING IN RIGHT SIDE AND RESTING.LEVOPHED REMAINS ON AT 5 MCG/MIN.
--- NOTE | 2021-11-11 20:00 | NUR ---
PATIENT RESTING IN BED WITH EYES CLOSED. DOES NOT STIR WHILE RN IN ROOM. MEEHAN HAS GOOD URINE OUTPUT. IV FLUIDS INFUSING THROUGH PORT; SITE WNL. PATIENT ON LEVOPHED AT 5 MCG/MIN TO MAINTAIN MAP >65. CALL LIGHT IN REACH. ALLOWED PATIENT TO REST.
--- NOTE | 2021-11-11 20:39 | EKG ---
[facility] [address] [facility] [address] [place] [address] Signed Sinus tachycardia Low voltage QRS Cannot rule out Anterior infarct , age undetermined ST \T\ T wave abnormality, consider inferolateral ischemia Abnormal ECG When compared with ECG of 08-JUL-2021 08:53, Sinus rhythm has replaced Junctional rhythm Minimal criteria for Anterior infarct are now present Inverted T waves have replaced nonspecific T wave abnormality in Inferior leads Inverted T waves have replaced nonspecific T wave abnormality in Lateral leads Confirmed by ILYA REHMAN MD ([id number]) on 11/11/2021 8:39:26 PM Electronically Signed By: ILYA REHMAN MD 11/11/212038 PATIENT NAME: MACKENZIE HARTLEY Electrocardiogram DATE OF : 55 PHYSICIAN: ILYA REHMAN MD REPORT #: [id number] REPORT IS CONFIDENTIAL AND NOT TO BE RELEASED WITHOUT AUTHORIZATION
--- NOTE | 2021-11-11 21:30 | NUR ---
PATIENT PROVIDED WITH [employer] MEDS. PATIENT ALERTS TO VOICE, DENIED ANY NEEDS. ORIENTED X3. VS STABLE.
--- NOTE | 2021-11-12 00:49 | NUR ---
PATIENT REPOSITIONED IN BED. HR 110-120, SINUS TACH. PATIENT IS DROWSY AND REPORTS FEELING "SO TIRED, SLEEPING ALL THE TIME". BUT ALERTS EASILY TO VOICE AND IS ORIENTED. BP CUFF SWITCHED SIDES. PATIENT DENIED FURTHER NEEDS. REQUEST TV BE LEFT ON. VOLUME DECREASED AND LIGHTS DIMMED. CALL LIGHT IN REACH. PORT SITE WNL. GOOD URINE OUTPUT.
--- NOTE | 2021-11-12 01:00 | NUR ---
PATIENT ALERTS EASILY TO VOICE. BP CUFF REPOSITIONED. TITRATION TO 2 MCG/MIN ON NOREPI DUE TO ADEQUATE BP. HR 125, SINUS TACH. PATIENT TOLERATING 2L NC. PORT SITE WNL, IVF PER ORDER.
--- NOTE | 2021-11-12 01:30 | NUR ---
SERIAL BP SHOW PATIENT NOT TOLERATING PRESSORS AFTER TIRATION, INCREASED NOREPI 1 MCG Q3-5 MINS UNTIL MAPS WERE GREATER THAN 65. PATIENT NOW ON NOREPI AT 5 MCG/MIN.
--- NOTE | 2021-11-12 01:57 | NUR ---
CALL LIGHT USED BY PT. PT AWAKE AND ALERT LAYING IN BED. PT STATED HE WAS FINISHED USING THE HEATING PAD FOR HIS ARM. HEATING PAD REMOVED FROM PT AT THIS TIME. PT REPORTS NO PAIN TO HIS FOREARM. DILTIAZEM DRIP REMAINS AT 15MG/HR. PT STATED HE NEEDED TO VOID, PT ABLE TO WALK TO THE BATHROOM TO VOID WITOUT ASSISTANCE AND BACK. HR MAINTAINED 70-80 BPM WHILE WALKING TO THE BATHROOM TO VOID AND BACK TO THE BED. PT NOW RESTING IN BED, NEW BAG OF DILTIAZEM STARTED AND INFUSING AT PREVIOUS RATE OF 15MG/HR. PT REPORTS NO NEEDS AT THIS TIME WHEN ASKED, CALL LIGHT IN REACH, BED IN LOWEST POSITION, OFFICERS AT THE BEDSIDE, WILL CONTINUE PLAN OF CARE.
--- NOTE | 2021-11-12 02:15 | NUR ---
UPDATE PROVIDED TO . NO NEW ORDERS. CONTINUE TO MONITOR.
--- NOTE | 2021-11-12 04:56 | NUR ---
DISCUSSED PATIENT'S LABS AND CURRENT VS WITH MD. ORDERS FOR K+ REPLACEMENT, VERIFIED VIA REPEAT BACK METHOD. SEE EMAR.
--- NOTE | 2021-11-12 08:07 | NUR ---
IN ROOM FOR ASSESSMENT. PT LAYING IN BED, EYES OPEN BUT AFFECT IS FLAT WHEN RESPONDING TO QUESTIONS NOREPINEPHRINE DRIP TITRATED TO 4 MCG/MIN. POTASSIUM RIDER ALSO INFUSING. PLAN OF CARE ESTABLISHED. CALL LIGHT WITHIN REACH WILL CONTINUE TO MONITOR.
--- NOTE | 2021-11-12 09:11 | NUR ---
PER LENIN LAL PATIENT REMAINS ON PRESSOR DRIP AT THIS TIME. LOOKED IN ON PATIENT, PATIENT SLEEPING WITH EYE CLOSED. NO CHANGES IN DC PLAN AT THIS TIME. WILL CONTINUE TO CHECK ON PATIENT DURING HER STAY.
--- NOTE | 2021-11-12 10:09 | NUR ---
ATTEMPTED TO TITRATE LEVOPHED DRIP DOWN, BLOOD PRESSURES DOWN INTOT HE 60S SYSTOLICALLY AFTER JUST [address] REHMAN. WILL MAINTAIN LEVOPHED DRIP AT 4 MCG/MIN.
--- NOTE | 2021-11-12 12:22 | NUR ---
PATIENT REPOSITOINED IN BED FOR LUNCH. PATIENT TOOK 9 OR 10 SIPS OF SOUP AND A FEW SIPS OF HER ENSURE.
--- NOTE | 2021-11-12 12:26 | NUR ---
ASSESSMENT COMPLETED. PT LEVOPHED TITRATED DOWN TO 3 MCG/MIN TO MAINTIAN MAP OF 65 OR GREATER. HEART RATE 120 AT REST. POTASSIUM AND BICARBONATE NOW INFUSING WELL. PT REMAINS DROWSY BUT AWAKENS TO VOICE. CALL LIGHT WITHIN REACH. WILL CONTINUE TO CLOSELY MONITOR.
--- NOTE | 2021-11-12 14:55 | NUR ---
BEDBATH PROVIDED, MEEHAN AND OSTOMY CARE DONE. LINEN CHANGED AND PATIENT REPOSITIONED ONTO LEFT SIDE WITH PILLOW SUPPORTING AND HEEL PROTECTORS ON. CALL LIGHT IN EASY REACH.
--- NOTE | 2021-11-12 14:57 | NUR ---
RED IRRITATED AREA UNDER LEFT BREAST NOTICED AND RN NOTIFIED
--- NOTE | 2021-11-12 15:00 | NUR ---
POTASSIUM DONE INFUSING. LEVOPHED DRIP REMAINS AT 3 MCG/MIN. BICARB INFUSING INTO LEFT FOOT IV. HEART RATE 104 AT REST. PT MORE REPSONSIVE TO QUESTIONS, AND ASSISTING WITH ROLLING WITH MARLENA CARE. CALL LIGHT WITHIN REACH. WILL CONTINUE TO MONITOR.
--- NOTE | 2021-11-12 16:03 | NUR ---
LEVOPHED DRIP TITRATED (SEE FLOWSHEET) TO MAINTIAN MAPS ABOVE 65 PERCENT. BICARBONATE CONTINUES TO INFUSE. PT DENIES NAUSEA OR PAIN. CALL LIGHT WITHIN REACH. WILL CONTINUE TO MONITOR.
--- NOTE | 2021-11-12 18:00 | NUR ---
PT FED SELF 40% OF DINNER. REPOSITIONED IN BED. SODIUM BICARB AND NOREPI DRIP CONTINUE TO INFUSE.
--- NOTE | 2021-11-12 18:42 | NUR ---
DR REHMAN UPDATED ONPT LEVOPHED DRIP RATE AND ASSESSMENT FINDINGS.
--- NOTE | 2021-11-12 19:30 | NUR ---
PATIENT VS STABLE. NOREPI AT 2 MCG/MIN. MAP > 65. PATIENT RESTING WITH EYES CLOSED. CALL LIGHT IN REACH.
--- NOTE | 2021-11-12 21:00 | NUR ---
PATIENT REPOSITIONED IN BED. HEEL PROTECTORS HAD FALLEN OFF. IV SITE IN LEFT FOOT DISLODGED; NO LONG PATENT. IV SITE DC; DRESSED WITH GAUZE AND COBAN. ILIOSTOMY BIG LEAKED, NEW GOWN AND LINEN PROVIDED. BAG REMOVED; LARGE AMOUNT OF LIQUID/MUCOID STOOL NOTED. NEW DEVICE APPLIED. BARRIER SPRAY UNDER DRESSING. BARRIER SPRAY UNDER PATIENT'S BREAST WELL. WARM BLANKET PROVIDED. PATIENT IS WITHDRAWN, COMPLAINS MILDLY OF DISCOMFORT WITH SOME CARE BUT DENIES ANY NEEDS. FREQUENTLY DROWSY. PORT SITE ACCESSED, WNL. PRESSOR AND IVF/ABX NOT COMPATABLE. SECONDARY IV SITE REQUIRED. ASBESTOS CEMENT SHEET SUPERVISOR CALLED FOR ASSISTNACE.
--- NOTE | 2021-11-12 22:15 | NUR ---
AFTER MULTIPLE ATTEMPTS FLOORING MECHANIC JESSIE LAL WAS ABLE TO PLACE 22G IV SITE IN LEFT FOOT. PATIENT TOLERATED WELL. IV FLUIDS AND ABX INFUSING PER ORDER. PATIENT POSITIONED FOR COMOFRT. COCCYX ALYVEN ALSO PLACED DUE TO SOME BLANCHABLE REDNESS. PATIENT RESTING WITH EYES CLOSED. ROOM AIR. NOREPI AT 2 MCG/MIN. [facility]
--- NOTE | 2021-11-13 01:36 | NUR ---
REPOSITIONED PATIENT'S BP BUFF AND ASSESSED IV SITE IN RIGHT FOOT, WNL. PATIENT IS ALERT. DENIED ANY NEEDS.
--- NOTE | 2021-11-13 03:07 | NUR ---
PATIENT APPEARS A LITTLE MORE RESTLESS IN BED. DENIES ANY NEEDS. ASSISTED TO REPOSITION FOR COMFORT. PATIENT APPEARS RESTFUL, EYES CLOSED. VS STABLE. IV SITE IN RIGHT FOOT UNWRAPPED AND ASSESSED, WNL. PRESTON WRAP TO PROTECT LINE. CALL LIGHT IN REACH.
--- NOTE | 2021-11-13 04:36 | NUR ---
PATIENT ALERT, WITHDRAWN AFFECT. VS STABLE; LUPE IN STANDBY SINCE 399. TOLERATING WELL. IV FLUIDS CONTINUE PER ORDER, SITE IN RIGHT FOOT WNL. PATIENT ON ROOM AIR. ENCOURAGED AND TURNED Q2H AND PRN.
--- NOTE | 2021-11-13 06:20 | NUR ---
patient tolerating being off pressor; patient is alert but withdrawn. tolerating room air. call light in reach.
--- NOTE | 2021-11-13 07:14 | NUR ---
PATIENT UPDATE PROVIDED TO MD. VERIFIED ORDERS VIA REPEAT BACK. SEE EMAR.
--- NOTE | 2021-11-13 07:15 | NUR ---
REPORT RECEIVED FROM NONFARM ANIMAL CARETAKER RN, CARE OF PT ASSUMED AT THIS TIME.
--- NOTE | 2021-11-13 07:30 | NUR ---
BLOOD DRAWN FROM PORT AND SENT TO LAB. 10 MLS WASTED ON LAB DRAW.
--- NOTE | 2021-11-13 07:51 | NUR ---
ASSESSMENT COMPLETED. PT ALERT AND AWAKE. ORIENTED X2. WITHDRAWN, NOT ANSWERING ALL QUESTIONS. BICARBONATE COMPLETED, LR WITH POTASSIUM NOW INFUSING INTO PORT. PT REPOSTIIONED IN BED FOR BREAKFAST. PT HEART RATE 125-130 AT REST. PERIPHERAL PULSES WEAK. EXTREMITIES COOL. PT DENIES PAIN OR NAUSEA. CALL LIGHT WITHIN REACH. WILL CONTINUE TO MONITOR.
--- NOTE | 2021-11-13 09:30 | NUR ---
PT DRANK ENSURE FOR BREAKFAST BUT DID NOT EAT FOOD. RESTING IN BED WITH EYES CLOSED. HEART RATE NOW DOWN UNDER 110 BPM. CALL LIGHT WITHIN REACH. WILL CONTINUE TO MONITOR.
--- NOTE | 2021-11-13 11:13 | NUR ---
IV MAGNESIUM NOW INFUSING. PT REPOSITIONED IN BED. HEART RATE 105 AT REST. MAPS GREATER THAN 65. LUNGS REMAIN CLEAR. PTS AFFECT REMAINS FLAT AND WITHDRAWN. [facility]. WILL CONTINUE TO MONITOR.
--- NOTE | 2021-11-13 11:40 | NUR ---
MEEHAN CARE AND OTHER PERSONAL CARES COMPLETED. PT UP TO CHAIR WITH THE ASSISTANCE OF 2 STAFF. PT VERY WEAK AND UNCOORDINATED. CONTINUITY TESTER IN ROOM WITH PT AT THIS TIME TO ASSIST PT WITH EATING LUNCH.
--- NOTE | 2021-11-13 11:54 | NUR ---
PATIENT TRANSFERRED TO CHAIR WITH 2PA FOR LUNCH. PATIENT TOOK 3 BITES OF MASHED POTATOES AND FEW SIPS OF ENSURE. MEEHAN CARE PROVIDED, LINEN CHANGED.
--- NOTE | 2021-11-13 12:03 | NUR ---
DR REHMAN IN ROOM TO ASSESS PT. PLAN OF CARE FOR DAY ESTABLISHED. ALL QUESTIONS ANSWERED. CALL LIGHT WITHIN REACH. WILL CONTINUE TO MONITOR.
--- NOTE | 2021-11-13 12:24 | NUR ---
UNABLE TO GET PT TO RESPOND TO MY VOICE. SPOKE SEVERAL TIMES, VOICED A PRAYER PT MOVED HEAD FROM SIDE TO SIDE, BUT DID NOT OPEN EYES.
--- NOTE | 2021-11-13 12:52 | NUR ---
PT CRYING. UNABLE TO STATE IF SHE IS IN PAIN OR NAUSEATED. ASSISTED PT BACK TO BED AND REPOSITIONED IN BED. CALL LIGHT WITHIN REACH. WILL CONTINUE TO MONITOR.
--- NOTE | 2021-11-13 15:26 | NUR ---
DR REHMAN UPDATED ON PT LOW URINE OUTPUT AND OTHER ASSESSMENT FINDINGS. NO NEW ORDERS AT THIS TIME. WILL CONTINUE TO MONITOR.
--- NOTE | 2021-11-13 16:00 | NUR ---
MANUAL BLOOD PRESSURE 76/58. URINE OUTPUT STILL INADEQUATE. AT BEDSIDE. VOICED CONCERNED ABOUT PT NOT RESPONDING TO QUESTIONS AND DROWSINESS.
--- NOTE | 2021-11-13 17:38 | NUR ---
DR REHMAN UPDATED ON PT'S CONTINUED LOW URINE OUTPUT AND LOW BLOOD PRESSURES. ORDERS RECIEVED (SEE EMAR).
--- NOTE | 2021-11-13 18:01 | NUR ---
LR BOLUS AND ALBUMIN INFUSING. LEVOPHED DRIP RESTARTED AT 2 MCG/MIN. THIS RN REMAINS AT BEDSIDE.
--- NOTE | 2021-11-13 19:30 | NUR ---
REPORT RECEIVED FROM DEV LAL, PT RESTING IN BED WITH EYES CLOSED. HR 80'S, RR 18 SPO2 98%.
--- NOTE | 2021-11-13 19:40 | NUR ---
REPORT RECEIVED FROM LENIN LAL. PT RESTING IN BED WITH EYES CLOSED, MOVING LEGS UP AND DOWN IN BED FREQUENTLY, SLIGHTLY RESTLESS. HR 80'S. RR 18, SPO2 97% ON ROOM AIR. LEVOPHED DRIP INFUSING AT 2MCG/MIN. IVF INFUSING AT 75ML/HR.
--- NOTE | 2021-11-13 20:17 | NUR ---
IN TO DO VITALS AND ASSESSMENT. PT OPENS EYES TO VERBAL STIMULI AND IS AWARE OF STAFF BUT DOES NOT ANSWER ANY QUESTIONS. TEMPORAL TEMP WAS 95.2, UNABLE TO GET AXIALLARY OR ORAL TEMP TO READ SO RECTAL TEMP DONE=95.3. PT IS COOL TO THE TOUCH. WARM BLANKETS PLACED. LEVOPHED CONTINUES AT 2MCG/MIN WITH LAST BP 83/54 MAP (63).
--- NOTE | 2021-11-13 21:03 | NUR ---
UPDATE TO DR REHMAN REGARDING RECENT TEMP, VS AND URINE OUTPUT. NO NEW ORDERS AT THIS TIME.
--- NOTE | 2021-11-13 22:18 | NUR ---
RECTAL TEMP RECHECKED, 95.3 DESPITE PT BEING COVERED WITH SEVERAL WARM BLANKETS. AWAITING BEAR HUGGER FROM PERSONAL INJURY ATTORNEY TO START WARMING.
--- NOTE | 2021-11-13 22:40 | NUR ---
NEW ORDER FOR BLOOD CULTURES- FIRST SET DRAWN FROM LEFT FOOT.
--- NOTE | 2021-11-13 23:00 | NUR ---
APPLIED BEAR SHAKIR TO PT, URINE OUTPUT HAS BEEN MAINTAING QUANTITY SUFFICIENT.
--- NOTE | 2021-11-14 00:40 | NUR ---
SECOND SET OF BLOOD CULTURES DRAWN FROM LEFT FOOT, NEW IV STARTED IN LEFT FOOT AND BLOOD CULTURES DRAWN FROM THAT WITH IV START.
--- NOTE | 2021-11-14 03:49 | NUR ---
IN TO DO ASSESSMENT, REPOSITION PT. RECTAL TEMP = 96.4 F. NO CHANGE IN MENTAL STATUS, STILL VERY FLAT, NOT ANSWERING QUESTIONS BUT DOES FOLLOW SOME DIRECTOINS, MOVING SELF IN BED WITH PURPOSE AT TIMES. LEVOPHED CONT AT 2MCG/MIN, HR 80'S. URINE OUTPUT REMAINS ADEQUATE. WARMING BLANKET STILL IN PLACE.
--- NOTE | 2021-11-14 08:24 | NUR ---
IN PATIENT'S ROOM FOR AM BLOOD DRAW FROM PORT, VITALS, ASSESSMENT AND CERAMICS TEST ENGINEER. BLOOD DRAWN FROM LEFT SIDED PORT W/O DIFFICULTY, 8 ML WASTED AND THEN FLUSHED WITH 20 ML NS. IV FLUIDS CONTINUE AT 75 ML/HR, LR. LEVOPHED CONTINUES AT 2 MCG/MIN. URINE OUTPUT OVER 2 HR WAS 60 ML. ILEOSTOMY EMPTIED FOR 100 ML LIQUID STOOL. PT AWAKENS TO NAME, BUT DOES NOT RESPONS VERBALLY AT ALL. PT DOES FOLLOW COMMAND OF SQUEEZING HANDS, BUT VERY WEAK EFFORT. LUNGS ARE CLEAR. SP02 IS 98% ON ROOM AIR. ORAL TEMP IS 97.8. PT FOLLOWED THIS COMMAND OF OPENING MOUTH FOR ORAL TEMP. PT HAS LEGS BENT IN BED WITH KNEES UP FOR COMFORT AND MOVING ALL EXT X4. WILL CONTINUE TO MONITOR CLOSELY.
--- NOTE | 2021-11-14 11:14 | NUR ---
CONSENT OBTAINED OVER THE PHONE FROM PATIENT'S ISIDRO HARTLEY [phone], AND 2 RNs LISTENED TO CONSENT GIVEN. UPDATED PATIENT'S THAT PATIENT IS STILL NOT VERBAL AT THIS TIME. HE EXPRESSES HIS CONCERN WITH HER CONDITION AND THAT SHE IS NOT SPEAKING IS VERY WORRISOME TO HIM. URINE OUTPUT AT 1100 WAS 55 ML, BETTER THAN THE PREVIOUS HOURS. PT REMAINS ON LEVOPHED AT 2 MCG/MIN.
--- NOTE | 2021-11-14 12:17 | NUR ---
ASSESSMENT COMPLETE. PT REMAINS NON VERBAL AT THIS TIME. PT DOES NOD YES WHEN YOU ASK HER IF SHE CAN HEAR YOU TALKING TO HER. PT RESPONDS TO HER NAME BY OPENING EYES, AND HELPS WITH REPOSITIONING. LUNGS REMAINS CLEAR TO AUSCULTATION AND SP02 IS 99% ON ROOM AIR. PT DOES NOT APPEAR IN ANY DISTRESS, BUT DOES JUST SEEM OVERALL LETHARGIC, WITHDRAWN, AND NOT HER USUAL SELF. URINE OUTPUT LAST HOUR WAS 70 ML. IVF CONTINUE AT 75 ML/HR. LEVOPHED WAS AT 2, TITRATED DOWN TO 1 MCG/MIN. LAST BP 92/59 (70). WILL CONTINUE TO MONITOR.
--- NOTE | 2021-11-14 12:45 | NUR ---
DR. REHMAN IN TO SEE PATIENT. PATIENT REMAINS NONVERBAL. PT ABLE TO MOVE ALL EXT STILL. PUPILS REMAIN EQUAL AND REACTIVE TO LIGHT. PT TO RECEIVE 2 UNITS OF PRBCs. LEVOPHED STILL AT 1 MCG/MIN.
--- NOTE | 2021-11-14 13:12 | NUR ---
1ST UNIT OF BLOOD STARTED AT 1310 AT A RATE OF 120 ML/HR FOR THE FIRST 30 ML. THIS RN AT BEDSIDE MONITORING FOR ADVERSE REACTION. PT OFF LEVOPHED NOW AT THIS TIME AND WILL MONITOR BP CLOSELY.
--- NOTE | 2021-11-14 13:44 | NUR ---
BLOOD RATE INCREASED TO 300 ML/HR AT 1325. PT TOLERATING WELL. ULTRASOUND USED TO LOOK FOR POTENTIALLY OTHER IV SITE IN ARMS BUT BOTH ARMS HAVE VERY LIMITED VEINS, WITH THE BRACHIAL VEINS IN BOTH ARMS LOOKING TO BE THE ONLY OPTIONS AT THIS POINT. HOLDING OFF ON ANY IV ATTEMPTS, PT IS ABLE TO REMAIN OFF LEVOPHED AT THIS TIME. PT AWAKE BUT STILL NOT CONVERSING AT THIS TIME, DOES NOT HEAD YES IF SHE UNDERSTANDS WHAT IS BEING SAID.
--- NOTE | 2021-11-14 14:54 | NUR ---
2ND UNIT OF BLOOD STARTED AT 1430 PER GRADE AND CENTER MARKER, LACI LAL. AT 15 MINUTE GAURANG, BLOOD INCREASED TO 250 ML/HR. LAST BP 89/63 (71). PT HAS REMAINED OFF LEVOPHED GTT. WILL CONTINUE TO MONITOR.
--- NOTE | 2021-11-14 16:26 | NUR ---
PATIENT'S IS HERE AT THIS TIME AND GIVEN AN UPDATE ON PT'S CONDITION.
--- NOTE | 2021-11-14 17:30 | NUR ---
WHILE GIVING PATIENT BED BATH AND CAHTETER CARE, CHANGING CHUX, DRAW SHEET AND GOWN, IT WAS NOTED THAT PATIENT HAS A LARGE AMOUNT OF GRAYISH/NARVAEZ PURULENT LIKE, ODOROUS FLUID ON CHUX AND DRAW SHEET. WHILE LOOKING AT THE PERIRECTAL AREA, THERE IS A DARKENED CIRCULAR AREA, APPROX DIME SIZED, THAT APPEARS TO BE DRAINING THIS FLUID FROM. WHEN PRESSING ON AREA, MORE OF THE FLUID IS EXPRESSED. DR. REHMAN NOTIFIED OF THIS DRAINAGE AND COMES TO SEE PATIENT. AEROBIC/ANAEROBIC AND GRAM STAIN CULTURES ARE OBTAINED AND SENT TO LAB. PT TOLERATING WELL, BUT THIS AREA DOES SEEM PAINFUL. GAUZE PLACED DOWN IN THAT AREA TO HELP ABSORB THE DRAINAGE. PT TO HAVE A CT SCAN OF ABD/PELVIS PER DR. REHMAN. WILL CONTINUE TO MONITOR.
--- NOTE | 2021-11-14 19:30 | NUR ---
REPORT RECEIVED FROM STELLA LAL. PT RESTING IN BED, EYES CLOSED, MOVING SELF IN BED SOME.
--- NOTE | 2021-11-14 20:15 | NUR ---
PT TAKEN DOWN TO CT FOR CT SCAN.
--- NOTE | 2021-11-14 20:45 | NUR ---
PT BACK FROM CT, TURNED ONTO SIDE TO ASSESS AND REPOSITION PT. PT FOUND TO HAVE ABOUT A FIST SIZED AMOUNT OF YOUNG PASTY DISCHARGE COMING FROM MAR[place]NA AREA, COULD NOT DETERMINE FOR SURE WHERE THIS DISCHARGE WAS COMING FROM. ABCESS AREA EXAMINED, NO FURTHER DISCHARGE COMING OUT AT THIS TIME. MARLE[place] AREA CLEANED AND PT REPOSITIONED ONTO HER RIGHT SIDE.
--- NOTE | 2021-11-14 21:58 | NUR ---
DR REHMAN CALLED TO DISCUSS CT RESULTS, GIVEN UPDATE ON URINE AND VS, NO NEW ORDERS AT THIS TIME.
--- NOTE | 2021-11-15 00:15 | NUR ---
ASSESSMENT DONE, UNCHANGED FROM PREVIOUS ASSESSMENT. MORE YOUNG DISCHARGE NOTED FROM MAR[place] AREA, AREA CLEANED. PT AWAKE OFF AND ON, MOVING LEGS AROUND IN BED. URINE OUTPUT REMAINS QUANTITY SUFFICIENT.
--- NOTE | 2021-11-15 02:20 | NUR ---
PT REPOSITIONED, MORE YOUNG DISCHARGE NOTED FROM [place] AREA, AREA CLEANED. PT IS PARTICIPATING IN CARES AND FOLLOWING INSTRUCTIONS BUT STILL NOT SPEAKING.
--- NOTE | 2021-11-15 04:30 | NUR ---
IN TO REPOSITION PT AND DO ASSESSMENT, MORE DISCHARGE CLEANED UP FROM RECTAL AREA. WARM BLANKETS PLACED, PT BACK TO SLEEP.
--- NOTE | 2021-11-15 06:38 | NUR ---
DR REHMAN CALLED AND NOTIFIED OF POSITIVE BLOOD CULTURES, ORDER GIVEN TO DRAW A SECOND SET OF BLOOD CULTURES.
--- NOTE | 2021-11-15 08:04 | NUR ---
IN PATIENT'S ROOM THIS AM TO HELP NIGHT RN WITH CLEAN DRAW SHEET. PT HAS CONTINUED TO HAVE MORE OF THE ROCKY-GRAYISH COLORED EXUDATE DRAINING FROM ABSCESS AREA ON PERIRECTAL AREA. PT REMAINS OFF LEVOPHED. LAST BP 96/70 (80). 2ND SET OF BLOOD CULTURES DRAWN FROM PORT AFTER WASTING 5 ML. OTHER AM LABS ALSO DRAWN. IVF NOW RESUME AT 75 ML/HR AND IV CEFEPIME INFUSING. MEEHAN DRAINING DILUTE URINE. PT STILL NONVERBAL AT THIS TIME BUT IS AWAKE WITH EYES OPEN. PT DOES SQUEEZE HANDS WHEN ASKED, BUT DOES NOT FOLLOW ANY OTHER COMMAND BY THIS RN AT THIS TIME. ATTEMPTED TO HAVE PT CLOSE EYES SHUT AND STICK TONGUE OUT BUT UNABLE TO. CONTINUE TO MONITOR CLOSELY.
--- NOTE | 2021-11-15 11:36 | NUR ---
PATIENT REPOSITIONED TO LEFT SIDE. CHUX UNDERNEATH CLEANED, AND MORE OF THE GRAYISH PURULENT DRAINGED ON CHUX AND ON GOWN. NEW GOWN PROVIDED. SAME RAISED BOIL LIKE AREA IS STILL EXPRESSING THE PURULENT GRAYISH DRAINAGE. IV MAG TO BE GIVEN WELL NEW IVF, LR WITH 40 KCL AT 55 ML/HR. WILL CONTINUE TO MONITOR.
--- NOTE | 2021-11-15 13:46 | NUR ---
PATIENT DESAT DOWN TO 86% ON ROOM AIR WHILE RESTING ON RIGHT SIDE. 2 L NC ADDED TO PATIENT. ENCOUARGED PT TO TAKE DEEP BREATHS. CONTINUE TO MONITOR.
--- NOTE | 2021-11-15 15:04 | NUR ---
PATIENT GIVEN FULL BED BATH AND LINEN CHANGED. PT TOLERATED WELL. CATHETER CARE PROVIDED. PT HAD LESS EXUDATE AT THIS TIME FROM THE PERIRECTAL AREA, BUT STILL SOME IS ABLE TO BE EXPRESSED. PT DOES SEEM PAINFUL WHEN THIS AREA IS BEING TOUCHED/CLEANED. PT NOW LAYING WITH HIPS FLOATED. ALLEVYN PLACED ON SACRUM FOR PREVENTION OF BREAKDOWN OF SKIN OVER THIS BONY PROMINENCE. PT ACTS LIKE SHE IS WANTING TO SAY SOMETHING AT TIMES BUT DOESN'T GET ANY WORDS OUT. PT DID TAKE 2 SIPS OF WATER WHEN PROMPTED AND NO SIGNS OF COUGHING/CHOKING. IVF CONTINUE AT 55 ML/HR. URINE OUTPUT MONITORED HOURLY. CONTINUE TO MONITOR.
--- NOTE | 2021-11-15 18:16 | NUR ---
DR. REHMAN TALKS ON THE PHONE WITH PT'S AND GIVES UPDATE ON PT'S STATUS AND CURRENT TREATMENT PLANS. PT CONTINUES TO MAKE APPROX 23-35 ML OF URINE PER HOUR ON AVERAGE. PT HAS REMAINED NONVERBAL. PT DOWN TO CT NOW OF HEAD AND FLOOR COVERING CONTRACTOR TAKES HER. PT WAS ABLE TO TAKE 5 DRINKS OF VANILLA ENSURE THROUGH A STRAW, WELL TAKE HER PO COUMADIN W/O DIFFICULTY. WILL CONTINUE TO MONITOR CLOSELY.
--- NOTE | 2021-11-15 19:30 | NUR ---
REPORT RECEIVED FROM STELLA LAL. PT RESTING IN BED, EYES OPEN, RESP EVEN AND UNLABORED, 1L/O2 IN PLACE WITH SATS 98%.
--- NOTE | 2021-11-15 19:45 | NUR ---
IN TO DO ASSESSMENT AND VS. PT FOLLOWS COMMANDS BUT STILL DOES NOT ANSWER ANY QUESTIONS. AWAKE IN BED, LOOKING AROUND, MAKING PURPOSEFUL MOVMENTS WITH LEGS AND ARMS. ATTENDS CLEAN. IVF INFUSING INTO PORT, MEEHAN DRAINING URINE, BARELY MAKING QUANTITY SUFFICIENT, WILL CONT TO MONITOR.
--- NOTE | 2021-11-15 22:00 | NUR ---
PT AWAKE IN BED, REPOSITIONED, NO CHANGES. URINE OUTPUT 30ML/LAST HOUR.
--- NOTE | 2021-11-16 00:32 | NUR ---
PT STILL LYING AWAKE IN BED, LOOKING AROUND, NO SIGNS OF DISTRESS. ASSESSMENT UNCHANGED FROM PREVIOUS. URINE OUTPUT REMAINS 20-30ML/HR. CONT TO MONITOR.
--- NOTE | 2021-11-16 03:19 | NUR ---
PT STILL AWAKE, LYING IN BED WITH EYES OPEN, OCCASIONALLY MOVING SELF IN BED.
--- NOTE | 2021-11-16 04:15 | NUR ---
IN TO DO ASSESSMENT, PT HAD SEEMED LIKE SHE FINALLY HAD FALLEN ASLEEP BUT AWAKENS EASILY. FOUND ILEOSTOMY TO BE LEAKING. REMOVED OLD APPLIANCE AND WAFER, STOMA BEEFY RED, ERYTHEMA NOTED AROUND STOMA, STOMA POWDER AND SKIN BARRIER APPLIED. THEN NEW DEVICE FITTED TO STOMA WITH GOOD SEAL. PT REPOSITIONED. PT CONTINUES TO BE NONVERBAL BUT IS ALERT AND HELPING WITH CARES SOME. NO S/SX OF PAIN NOTED. VERY MINIMAL DISCHARGE FROM MARLENA AREA DURING THIS SHIFT.
--- NOTE | 2021-11-16 06:14 | NUR ---
AM LABS DRAWN FROM PORT, GOOD BLOOD RETURN NOTED, FLUSHED WITH 20ML SALINE AND THEN IVF RESUMED INFUSING. PT REPOSITIONED. SEEMS TO BE BREATHING A LITTLE FASTER THIS SHIFT WITH RR 24-26.
--- NOTE | 2021-11-16 09:10 | NUR ---
vitals charted. patient repositioned in bed.
--- NOTE | 2021-11-16 09:20 | NUR ---
IN PATIENT'S ROOM FOR ASSESSMENT, SOUND ART INSTRUCTOR, AND BLOOD DRAW. PT WAS ABLE TO SAY HER NAME THIS AM. OTHERWISE HER MENTAL STATUS REMAINS THE SAME. HR IN THE 100s THIS AM. PT REMAINS OFF LEVOPHED. URINE AT 0900 WAS LOWER THAN IT HAS BEEN AT 18 ML. WILL CONTINUE TO TREND. LR WITH 40 KCL CONTINUES AT 55 ML/HR AND CEFEPIME INFUSING. CONTINUE TO MONITOR.
--- NOTE | 2021-11-16 11:43 | NUR ---
PATIENT AWAKE IN BED. PATIENTS 2 DAUGHTERS ARE HERE TO VISIT. PATIENT SIPPING ON WATER WITH DAUGHTER ASSISTANCE. HEEL PROTECTORS REPOSITIONED ON FEET. CALL LIGHT IN EASY REACH. VITALS CHARTED, NO OTHER NEEDS AT THIS TIME
--- NOTE | 2021-11-16 11:57 | NUR ---
PATIENT'S PO INTAKE IS POOR. WILL DRINK SOME ENSURE BUT NOT ENOUGH TO MEET HER NUTRITION NEEDS. WILL NOTE TO DR. REHMAN TO CONSIDER TUBE FEEDING THIS PATIENT SHE IS A FULL CODE. WILL CONTINUE TO MONITOR.
--- NOTE | 2021-11-16 12:07 | NUR ---
PATIENT'S DAUGHTERS IN ROOM AND VISITING WITH PATIENT AT THIS TIME.
--- NOTE | 2021-11-16 15:24 | NUR ---
BEDBATH AND MEEHAN CARE PROVIDED. LINEN CHANGED. PATIENT REMAINS NON VERBAL. SEVERAL SIPS OF TEA AND ENSURE PROVIDED. HEEL PROTECTORS IN PLACE.
--- NOTE | 2021-11-16 20:25 | NUR ---
REPORT GIVEN TO LUKASZ AGRAWAL AT THE BEDSIDE. PT TRANSFERRED TO ROOM 120 AWAKE ALONG WITH HER BELONGINGS AND IVF VIA BED. LUKASZ AGRAWAL TO CONTINUE PLAN OF CARE.
--- NOTE | 2021-11-16 20:36 | NUR ---
PATIENT TRANSFERED FROM CCU TO ROOM 120. PATIENT APPEARS AWAKE, WRITING ON CLIPBOARD. IV FLUIDS LR WITH 20K INFUSING AT 85ML CONTINIOUSLY. MEEHAN DRAINING CONCENTRATED YELLOW URINE. PATIENT SHAKES HEAD NO WHEN ASKED IF SHE NEEDS ANYTHING AT THIS TIME. PATIENT NOT VERBALIZING NEEDS AT THIS TIME.
--- NOTE | 2021-11-16 21:11 | NUR ---
PROVIDED PATIENT WITH WARM BLANKETS, WHEN ASKING IF PATIENT WOULD LIKE WARM BLANKET PATIENT VERBALIZED "WARM BLANKET". NO OTHER NEEDS AT THIS TIME.
--- NOTE | 2021-11-16 22:33 | NUR ---
TURNED PATIENT LEFT SIDE, WHITE CHUX PAD SOILED. CHANGED DRAW SHEET AND ARIADNA PAD. CLEANSED SKIN, PROIVIDED MEEHAN CARE. APPLIED POWDER TO IRRITATED SKIN. PATIENT INCREASED WOB, NOTED EXPIRATORY WHEEZES UPPER LOBES, DIMINSHED AIR FLWO IN THE BASES. RT IN ROOM, OXYGEN SATURATION 98% 1L NC. RAISED HOB. PATIENT SHAKES HEAD YES WHEN ASKED IF OKAY. VSS WNL.
--- NOTE | 2021-11-17 00:43 | NUR ---
TURNED PATIENT TO RIGHT SIDE. PATIENT HAD BEEN PULLING AT MEEHAN AND TOOK STABLIZER OFF, NOTED SKIN WERE ADHESIVE HAD BEEN TOUCHING THE SKIN APPEARED RED AND IRRITATED. APPLIED ATTEND TO KEEP HANDS AWAY FROM MEEHAN TUBE. ADEQUATE URINE OUTPUT. D5LR INFUSING AT 85ML/HR.
--- NOTE | 2021-11-17 01:18 | NUR ---
PATIENT APPEARS RESTLESS, HITTING HAND ON BEDSIDE TABLE. PATIENT NODS YES TO ALL QUESTIONS ASKED. HAND PATIENT REMOTE CONTROL, PATIENT TURNED ON TV AND CLOSED HER EYES. PROVIDING FREQUENT CHECKS ON PATIENT.
--- NOTE | 2021-11-17 02:53 | NUR ---
XRAY IN ROOM
--- NOTE | 2021-11-17 02:58 | NUR ---
CALL TO DR. REHMAN TO REPORT PATIENT DESAT TO 85% on 1l, titrated patient to 10 L oximask 02 saturation 94%, patient has increased wob using accessory muscles and is grunting. Ausculation to lungs diminished in bases with fine crackles, expiratory wheezes. New orders for 20mg of IV lasix, stop fluids and chest xray stat at 0235. 0245 Xray to room. chest xray done. RT to room, patient now on bipap with settings at a rate of 12 at 60%. O2 saturation 99% hr decreasing at 125. Patient appears to be tolerating well.
--- NOTE | 2021-11-17 03:12 | NUR ---
PATIENT HR DECREASED TO 84 WITH BIPAP AND WAS TOLERATING WELL UNTILL PATIENT HAD EMESIS IN MASK. BIPAP REMOVED IMMEDIATELY, PATIENT DID NOT APPEAR TO ASPIRATE. BACK ON OXI MASK. HR 123 RR 28, 02 SATURATION 98% 10 LITERS.
--- NOTE | 2021-11-17 03:26 | NUR ---
DR. REHMAN CALLED AND UPDATED. NO NEW ORDERS. WAITING FOR CHEST XRAY TO RESULT. SEE RESPIRATORY ASSESMENT.
--- NOTE | 2021-11-17 03:43 | NUR ---
DR. REHMAN INTO ROOM TO ASSESS PATIENT. VERABLIZED TO GIVE PATIENT MORE TIME, AND LET THE LASIX WORK MORE. URINE OUTPUT INCREASING. DR. REHMAN ORDERED TO TITRATE OXYGEN TO STAY ABOVE 90%. PATIENT NOW TITRATED TO 2L NC 02 SATURATION 95%. PATIENT USING ACCESSORY MUSCLES, AND BREATHING IS LABORED. RR 30, HR 126. HOB ELEVATED AT 52 DEGREES. NO NEW ORDERS.
--- NOTE | 2021-11-17 05:05 | NUR ---
PATIENT PRODUCING INCREASED URINE, APPEARS CLEAR. CONTINUES TO USE ACCESSORY MUSCLES WITH LABORED BREATHING. RR 28-30, LUNG SOUNDS IMPROVED, UPPER LOBES CLEAR BILATERALLY, LOWER LOBES LORETO AUSCULATATE DIMINISHED BREATH SOUNDS WITH FINE CRACKLES. SLIGHTLY SHIFTED PATIENT IN BED, PATIENT CONTINUES TO HAVE HOB ELEVATED AND APPARS TO BE TOLERATING FAIR.
--- NOTE | 2021-11-17 06:54 | NUR ---
PATIENT RESTING BACK IN BED, SLOW TO RESPOND TO VERBAL STIMULI. PUPILS ARE EQUAL AND REACTIVE TO LIGHT. PATIENT DOES NOT FOLLOW COMMANDS. BREATHING CONTINUES TO BE LABORED. URINE OUTPUT INCREASED, APPEARS DILUTE. SEE I&0. HR 130S, LABORED BREATHING RR 32 USING ACCESSORY MUSCLES. LABS DRAWN AND SENT THIS A.M.
--- NOTE | 2021-11-17 07:30 | NUR ---
THIS RN RECEIVED SHIFT REPORT FROM LUKASZ WATERS. PATIENT RESTING IN BED IN SEMI-FOWLERS PSOTION, EYES CLOSED, RESPIRATIONS SALLOW AND REGULAR, CALL LIGHT IS IN REACH. PATIENT HAS NO NURSE CARE NEEDS AT THIS TIME. CALL LIGHT ISIN REACH.
--- NOTE | 2021-11-17 09:30 | NUR ---
THIS RN IN TO SEE PATIENT WITH TIMO CASTRO. AM ASSESSMENT COMPLETE. PATIENT TURNED TO HER LEFT SIDE WITH PILLOWS. PATIENT IS ON RA NOW WITH SATS 95% OR GREATER. PATIENT IS TACHYPNIC 28-32 BPM AND US=[phone]. PATIENT IS NON-VERBAL AT THIS TIME WITH OCCASIONAL GRIMACE. MG+ RIDER UP AND RUNNING AND IV LASIX GIVEN. MEEHAN DRAINING DILUTE YELLOW URINE. LUNGS CLEAR IN THE APEX'S BUT DIM AND FINE CRACKLES IN THE BILAT BASES. PATIENT HAS NO OTHER CARE NEEDS AT THIS TIME. CALL LIGHT IS IN REACH.
--- NOTE | 2021-11-17 11:10 | NUR ---
THIS RN AND IN TO SEE PATIENT. AWARE OF INCREASED HEART RATE AND RESPIRATIONS SINCE 10AM. COMPLETED HIS EXAM AND PATIENT OPENS HER EYES TO SPEECH, BUT IS NON-VERBAL AND CAN'T FOLLOW COMMANDS. CONSIDERING A POSSIBLE FEEDING TUBE FOR NUTRITION. 2ND MG+ RIDER HUNG AND RUNNING. PATIENT HAS NO OTHER CARE NEEDS FROM THIS RN AT THIS TIME.
--- NOTE | 2021-11-17 11:17 | NUR ---
INFORMED THIS RN THAT HE HAS SPOKEN WITH THE PATIENT'S AND HE IS GOING TO PUT IN A FEEDING TUBE. ROLL MACHINE OPERATOR CALLING SURGERY TO TRY AND FIND A FEEDING TUBE.
--- NOTE | 2021-11-17 12:09 | NUR ---
2ND DOSE OF LASIX IV IN AND 2ND MG+RIDER COMPLETE. THIS RN, MATTHEW,RN, AND KAYLYN,RN ALL ASSISTED DR. REHMAN IN PLACING A 16F NG-TUBE FOR FEEDING INTO THE PATIENT'S RIGHT NARE AND SECURED IT TO HER NOSE AND RIGHT CHEECK WITH SILK TAPE. X-RAY WAS TAKEN AND CLEARED THE NG-TUBE FOR USE. PATIENT TO BE AT 45 DEGREE ANGLE IN BED AT AL TIMES PER . AWATING EXCELLENCE COACH TO GO OVER 'S TUBE FEED ORDERS FOR ANY ADJUSTMENTS SHE MAY WANT TO MAKE BEFORE STARTING TF. CALL LIGHT IS IN REACH AND PATIENT'S BED IS IN LOW POSITION.
--- NOTE | 2021-11-17 13:37 | NUR ---
JEVITY 1.2 STARTED AT 10MLS/HR FOR A TOTAL OF 60MLS TO EVELAUATE PATIENT TOLERANCE IN 6HRS TO SEE IF THE FEEDING CAN BE INCREASED ANOTHER 10MLS AN HOUR. PATIENT REMAINS UP AT 45 DEGREES IN BED AND O2 SATS 93% ON RA. PATIENT REMIANS NON-VERBAL AND UNABLE TO FOLLOW ANY KIND OF DEMANDS. PATIENT CALL LIGHT IS IN REACH AND PATIENT CAN BE VISUALIZED FROM THE NURSES STATION DESK. PATIENT HAS NO OTHER CARE NEEDS A T THIS TIME.
--- NOTE | 2021-11-17 14:43 | NUR ---
PATIENT'S ISIDRO CALLED AND INFORMED THIS RN PATIENT WAS DUE FOR HER CARLI SHOT YESTERDAY AND WANTED TO KNOW IF HE SHOULD BRING IT IN. THIS RN INFORMED AND TOLD ME TO INFORM ISIDRO WE ARE NOT GOING TO BE GIVING THE CARLI SHOT ST THIS TIME IT MAY MAKE HER IMMUNE SYSTEM EVEN LOWER. ISIDRO VERBALIZED UNDERSTANDING THIS AN WILL NOT BRING THE MED IN.
--- NOTE | 2021-11-17 15:05 | NUR ---
THIS RN IN WITH PT AND PULLED PATIENT UP IN BED AND TURNED TO THE LEFT SIDE. PATIENT REMAINS SITTING UP WITH HOB AT 45 DEGREES. PATIENT DOES NOT APPEAR TO BE IN ANY DISTRESS, JUST RESTING QUIETLY AT THIS TIME STILL NON-VERVAL AND WAS NOT ABLE TO FOLLOW ANY OF PT'S DIRECTIONS EITHER. CALL LIGHT IS IN REACH, HEAL PROTECTORS ON, NG TF CONTINUES AT 10MLS/HR. PATIENT HAS NO OTHER CARE NEEDS FROM THIS RN AT THIS TIME. CALL LIGHT IS IN REACH.
--- NOTE | 2021-11-17 17:02 | NUR ---
PATIENT'S ANTIBIOTIC UP AND RUNNING. PATIENT REMAINS NON-VERBAL AND IS NOW TURNED TO HER LEFT SIDE ON HER OWN. PATIENT DOES NOT RESPOND TO VOICE DIRECTIONS. CALL LIGHT IS IN REACH. PATIENT HAS NO OTHER CARE NEEDS AT THIS TIME.
--- NOTE | 2021-11-17 18:50 | NUR ---
TF INCREASED TO 20MLS/HR TF RESIDUAL=5MLS. 150MLS WATER FLUSHED IN. TF SET TO RUN ANOTHER 6 HOURS FOR A TOTAL OF 120MLS.
--- NOTE | 2021-11-17 19:05 | NUR ---
SHIFT REPORT RECEIVED FROM DAYSVAFT LUKASZ JACOBSON AT BEDSIDE. pt RESTING QUIETLY WITH EYES CLOSED, HOB REMAINS ELEVATED AT 45 DEGREES. PILLOWS UNDER RIGHT SIDE AND BLE AT THIS TIME, BILATERAL HEEL PROTECTORS IN PLACE. pt NONVERBAL AND HAS BEEN ALL DAY PER SHIFT REPORT. NO DISTRESS NOTED, CALL LIGHT IN REACH. pt REMAINS IN VIEW OF RN STATION. FEEDING TUBE INFUSING AT 20MLS/HR CONTINOUSLY VIA NG TUBE-PATENT, SECURED TO NARE. SPO2 LOW 90'S ON RA, HR 110-112. WILL CONTINUE TO MONITOR, CALL LIGHT IN REACH. SUCTION REMAINS IN PLACE AND AVAILABLE AT BEDSIDE.
--- NOTE | 2021-11-17 21:35 | NUR ---
ASSESSMENT COMPLETE, NO CHANGES TO pt MENTATION. pt KEEPS EYES CLOSED, WILL SHAKE HEAD IN YES MOTION WHEN ASKED QUESTIONS. NO DISTRESS NOTED, pt REMAINS NONVERBAL. WILL OCASSIONALY OPEN EYES BRIEFLY, ABOUT [facility] BUT THEN CLOSES THEM AGAIN. pt BOOSTED IN BED WITH HELP FROM FLOAT OUTSOLE BEVELER-HOB REMAINS AT 45 DEGREES. BILATERAL HIPS FLOATED AND PILLOW UNDER BILATERAL KNEES, BILATERAL HEEL PROTECTORS IN PLACE. BRISK BLOOD RETURN NOTED TO LEFT PORT-A-CATH, IV ABX INFUSING DIRECTED. IV SITES TO FEET X2 ALSO WNL. BLANCHABLE REDDNESS NOTED TO CASTRO BELLE IN PLACE AND DATED. MARLENA CARE DONE BY OUTSOLE BEVELER, ELIECER LARA IN PLACE. MEEHAN PATENT, DRAINING WNL. OSTOMY SITE WNL, SCANT DARK GREEN OUTPUT NOTED AND EMPTIED. WILL CONTINUE TO MONITOR, CALL LIGHT IN REACH. pt REMAINS IN VIEW OF RN STATION.
--- NOTE | 2021-11-17 22:50 | NUR ---
IV ABX COMPLETE, PORT-A-CATH FLUSHED AND HEP LOCKED PER POLICY. ALCOHOL CAP IN PLACE, NO NEEDS OR CONCERNS VERBALIZED BY pt. WILL CONTINUE TO MONITOR. CALL LIGHT IN REACH, pt IN VIEW OF RN STATION.
--- NOTE | 2021-11-17 23:40 | NUR ---
PATIENT REPOSITIONED. PROPPED PILLOW ON HER RIGHT SIDE.
--- NOTE | 2021-11-18 00:22 | NUR ---
ROUNDED ON pt, pt CONTINUES TO REST IN BED WITH EYE CLOSED. NONVERBAL. HOB REMAINS AT 45 DEGREES, pt ON RA. SPO2 92%, RR 24. NO OUTWARD SIGNS OF DISTRESS NOTED. WILL CONTINUE TO MONITOR FOR CHANGES. HR 90'S. pt REMAINS IN VIEW OF RN STATION.
--- NOTE | 2021-11-18 01:30 | NUR ---
RESIDUAL FEEDING TUBE <5MLS, TITRATED TO 30MLS/HR PER MD ORDERS. FLSHED WITH 150MLS TAP WATER, NO S/SX OF NAUSEA NOTED. HOB REMAINS AT 45 DEGREES. pt BOOSTED IN BED AND REPOSITIONED WITH PILLOWS. PILLOWS NOW UNDER LEFT SIDE AND RIGHT ARM AND BLE. pt TURNED SELF PARTIALLY TO HER RIGHT SIDE WHEN ASKED WHAT POSITION SHE'D LIKE TO BE ON. BILATERAL HEEL PROTECTORS REMAINS IN PLACE. NO ACUTE CHANGES TO ASSESSMENT. SPO2 94% ON RA, RR REMAINS APPROX 24. HR 108.
--- NOTE | 2021-11-18 03:22 | NUR ---
REPOSITONED pt IN BED AND BOOSTED HER, PILLOW NOW UNDER RIGHT SIDE AND UNDER LEFT ARM AND UNDER KNEES TO HELP pt PREVENT FROM SLIDING DOWN IN BED. SPO2 96%, HR 111. OCASSIONAL COUGH NOTED, BUT NO DISTRESS. HEEL PROTECTORS BACK IN PLACE. CALL LIGHT IN REACH.
--- NOTE | 2021-11-18 04:47 | NUR ---
SCHEDULED IV ABX INFUSING DIRECTED. SMALL CLOT NOTED IN DISTAL END OF TBING AFTER FLUSHING PIGGYBACK LINE, UNABLE TO PULL OUT FROM CLAVE. DISCUSSED WITH BODY SHOP TECHNICIAN IRIS, EVAN ALLISON DEACCESSED CURRENT PORT-A-CATH AND REACCESSED IT AND PLACED NEW DRESSING. BRISK BLOOD RETURN NOTED.
--- NOTE | 2021-11-18 06:12 | NUR ---
scheduled protonix given, see emar. lab unable to draw am labs. iv abx paused and am labs collected from port-a-cath. wasted 7mls, brisk blood return noted. iv abx resumed. call light in reach.
--- NOTE | 2021-11-18 06:20 | NUR ---
pt REPOSITIONED IN BED, PILLOW NOW UNDER LEFT HIP AND BLE AND RIGHT ARM. VSS AND I&O'S COMPLETE. NG TUBE PATENT, TUBE FEEDINGS CONTINUE TO INFUSE AT 30MLS/HR, NO DISTRESS OR OUTWARD S/SX OF NAUSEA NOTED. CALL LIGHT IN REACH.
--- NOTE | 2021-11-18 07:10 | NUR ---
THIS RN RECEIVED SHIFT REPORT FROM LUKASZ PLEITEZ. TF RESIDUAL 5MLS. FLUSHED WITH 150MLS OF WATER AND TF INCREASED TO 40MLS/HR. PATIENT OPENS EYS TO VOICE, BUT OTHERWISE UNRESPONSIVE TO INSTRUCTIONS FROM NURSE. REMAINS NON-VERBAL. PATIENT HAS NO OTHER NURSE CARE NEEDS AT THIS TIME. CALL LIGHT IS IN REACH.
--- NOTE | 2021-11-18 08:44 | NUR ---
PT RESTING IN BED AT 45 ANGLE. THIS CNA2 PERFORMED SHAMPOO/BRUSH HAIR, ORAL CARE W/DAMP MOUTWASH SWAB, APPLIED CHAPSTICK TO DRY LIPS. WASH FACE/HANDS, TURNED PT TO R SIDE PILLOW UNDER R ARM & PILLOW UNDER L HIP. LEGS ARE FLOATING BILATTERALLY. WARM BLACKET GIVE. CALL LIGHT IN REACH.
--- NOTE | 2021-11-18 10:30 | NUR ---
THIS RN IN TO SEE PATIENT. PATIENT WILL OPEN EYES TO VOICE AND DID LIFT HER ARM WHEN ASKED TO SO THIS RN COULD TAKE B/P, OTHERWISE PATIENT REMAINS NON-VERABL AND UNABLE OR UNWILLING TO FOLLOW VERBAL INSTRUCTION. NG-TUBE SECURE AND FEEDING CONTINUES. LUNGS CLEAR,BUT DIM BASES BILAT. NO ESSENTIAL OUTPUT FROM OSTOMY AT THIS TIME, BT ACTIVE, NO RECTAL OR VAGINAL DISCHARGE, ALLEVEYN IN PLACE ON COCCYX, PATIENT LIFTED UP IN BED AND BUTTOCKS FLOATED UP ON PILLOWS TO RELIEVE ANY PRESSURE ON COCCYX. BOTH FOOT IV'S FLUSH AND ARE WNL. PORT-A-CATH HEP LOCK AT THIS TIME AFTER 20MLS NS FLUSH. HEEL PROTECTORS ARE IN PLACE AND CALL LIGHT IS IN REACH. [employer]'S ASSISTING IN ROOM.
--- NOTE | 2021-11-18 12:51 | NUR ---
THIS RN HAS GIVEN REPORT TO LUKASZ BASS TO TAKE OVER CARE FOR THE REST OF THE SHIFT. TF RESIDUAL IS 5MLS AND 150ML TAP WATER FLUSH PUT THROUGH NG TUBE AND TF INCREASED TO 50MLS/HR FOR THE NEXT 6HRS. PATIENT HAS BEEN SAYING PAIN AND THIS RN TALKED WITH ABOUT PAIN MEDICATION OR PUTTING TYLENOL THROUGH THE NG TUBE. SAYS THE PATIENT NEEDS TO WAKE UP MORE BEFORE WE START LOOKING INTO MEDICATING FOR PAIN. THIS WAS PASSED ON TO LUKASZ BASS IN REPORT. PATIENT HAS NO OTHER CARE NEEDS FROM THIS RN AT THIS TIME. CALL LIGHT IS IN REACH.
--- NOTE | 2021-11-18 14:10 | NUR ---
Attempted to speak with Smita. Asked pt if she needs anything and she does not respond. I asked if she is warm enough and she nods. Per staff pt was able to bang on table earlier.
--- NOTE | 2021-11-18 14:24 | NUR ---
TO PT ROOM FOR MEDICATION ADMINISTRATION AND ASSESSMENT. PT ANSWERING QUIESTIONS BY NODDING HEAD YES OR NO. PT NOW SLEEPING AND APPEARS COMFORTABLE. BILATERAL FOOT IV'S FLUSHING WELL. NG CONTINUOUS TF RUNNING.
--- NOTE | 2021-11-18 14:26 | NUR ---
SEVERAL ATTEMPTS MADE TO CONNECT WITH PT-UNABLE TO GET RESPONSE OUT OF PT, WILL CONTINUE TO FOLLOW
--- NOTE | 2021-11-18 15:34 | NUR ---
TO PT ROOM TO CHECK ON PT. PT APPEARS TO BE SLEEPING COMFORTABLY. RR EVEN AND REGULAR. NG TUBE RUNNING. CALL LIGHT WITHIN REACH.
--- NOTE | 2021-11-18 16:41 | NUR ---
TO PT ROOM FOR MEDICATION ADMINISTRATION. PT IS ALERT. NONVERBAL ATT. TF RUNNING.
--- NOTE | 2021-11-18 18:45 | NUR ---
TO PT ROOM TO CHECK ON PT. PT APPEARS COMFORTABLE AND SLEEPING. NG RESIDUALS 5ML. NG FLUSH WITH 150ML WATER AND INCREASED FEEDING RATE TO 60ML/HR. MEEHAN EMPTIED. CALL LIGHT WITHIN REACH.
--- NOTE | 2021-11-18 20:00 | NUR ---
Patient sleeping in bed. Call light within reach. Bed alarm in place.
--- NOTE | 2021-11-18 21:28 | NUR ---
Patient conversive at this time. Able to claim she is feeling "better". States she would "like some juice". Oriented to self, place. Disoriented to time and situation. Patient is slow to respond. Bed alarm in place. Call light within reach.
--- NOTE | 2021-11-18 23:00 | NUR ---
ORDER PLACED FOR ROUTINE COVID SWAB pt's LAST COVIB SWAB WAS OVER 1 WEEK AGO. RT STAN IN ROOM TO COMPLETE SWAB.
--- NOTE | 2021-11-18 23:58 | NUR ---
Patient's NG tube flushed w/150ml of water. No resistance to gravity flush. Before flush, residual of 0ml of feeding was noted. Patient restarted feeding at rate of 60ml/hr.
--- NOTE | 2021-11-19 00:43 | NUR ---
Patient sleeping in bed. Has continued to make small requests of this nurse, such as "pain medication, turn off the tv, and warm blanket". Bed alarm is in place. Call light is within reach. HOB is 46 degrees.
--- NOTE | 2021-11-19 03:00 | NUR ---
in room to assist primary rn jacob with repositoning pt. pt incontinent of urine, pulled rey catheter-balloon remains inflated and intact. reji care done and primary rn remains in room with pt.
--- NOTE | 2021-11-19 03:03 | NUR ---
At approximately 0245, this nurse found that patient had removed rey catheter by self. Balloon was inflated/intact. Patient claimed "she didn't want it." Patient has been picking at NG tube tape and yanking on tube. Has needed frequent quing to stop behaviours. Dr. Nieves notified of findings. No sedating meds ordered. Ok to leave rey out per Dr. Nieves. Purewick in place, attached to suction. Colostomy bag emptied again for 350ml. Bed alarm in place. Call light within reach. Continuing to monitor to prevent NG removal.
--- NOTE | 2021-11-19 04:27 | NUR ---
Patient has been active during shift. Alert to self and city. Disoriented to situation and time. Slow to respond. Follows commands, but is forgetful. Slurred speech. Lung sounds clear bilaterally. Has remained on RA. BP has remained stable. Bowel sounds active. Has had more than adequate amount of liquid illeostomy output. Ostomy appliance intact. NG has remained at same location throughout shift. Purewick is in place. Has not gotten out of bed. Allievan dressing remains on coccyx. No drainage noted from right glute wound. Patient wants NG tube removed and wants to drink fluids. Heparin locked in accessed port. Bed alarm has remained in place.
--- NOTE | 2021-11-19 05:43 | NUR ---
FEEDING TUBE ALARMING, FEEDING COMPLETE. ADDITIONAL FEEDING PROVIDED, INFUSING DIRECTED. NO S/SX OF RESPIRATORY DISTRESS NOTED FROM pt, HOB REMAINS ELEVATED 45 DEGREES. PRIMARY RN SAMIRA MADE AWARE.
--- NOTE | 2021-11-19 06:54 | NUR ---
Patient has not voided since removal of indwelling cath. Bladder scanned at this time for 1mL. Denies urge to urinate. Appears comfortable.
--- NOTE | 2021-11-19 06:57 | NUR ---
Dr. Nieves notfied of critical lab value. INR of 5.07. No new orders received.
--- NOTE | 2021-11-19 09:00 | NUR ---
Spoke with Smita. Asked if she recognizes me today and she states, "Yes". We cont to discuss how she is feeling and asked if she would ever want to go onto hospice and she states, "yes". We then discussed criteria for hospice and I would need to contact [facility] to see if their physician would consider her appropriate. I can send her chart to check. She is wanting to go home on hospice and would like me to call Norm and discuss with him. Called and spoke with Kelsi at Hospice and updated to our conversation. She asks I send the chart and the last DC summarys from her admissions. Faxed the H&P and progress notes from this admission and the last 5 dc summarys from admits this year.
--- NOTE | 2021-11-19 09:20 | NUR ---
Called and spoke with Anthony. Updated to the conversation I had with Smita today. Asked if this is something he would consider and he will come in and speak with Smita. He states he is unsure what to do. 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 He states they have put an offer in on a new home and are selling their home. He asks about options as he is unsure if he continue to provide multimedia producer cg. Discussed assisted living and applying for group home medicaid. He asks if she could go to a SNF and we discussed pt would need to meet critieria for rehab. Pt would not be able to complete rehab at this time. Anthony states he will be in to speak with Smita.
--- NOTE | 2021-11-19 09:45 | NUR ---
RN IN ROOM TO ASSESS PT - PT RESTING IN BED TILTED TO RIGHT SIDE WITH PILLOWS SUPPORTING UNDER ARMS. MEDS ADMINISTERED VIA NG TUBE, NO DIFFICULTIES, 50ML FREE FLUID USED TO FLUSH. PT AT BEDISDE, PT TRYING TO COMMUNICATE VERBALLY BUT NOT COHERANT. FAMILY FRUSTRATED BY THIS. PT FIXATED ON TO WATCH ADRIANNE LION FOR THE 6 CLUES. SKIN ASSESSMENT AND CLEANING DEFERED UNTIL LATER WHEN LEAVES. PT STATES SHE IS COMFORTABLE AND WITHOUT PAIN.
--- NOTE | 2021-11-19 11:09 | NUR ---
FAMILY AT BEDSIDE - EXPRESS FRUSTRATION WITH INABILITY TO UNDERSTAND PT. PT RESTING WITH EYES CLOSED, RR EVEN AND UNLABORED. HOB ELVATED 45%, FEEDING TUBE PATENT AT 60ML/H. FAMILY DENIES NEEDS.
--- NOTE | 2021-11-19 12:06 | NUR ---
RN IN ROOM TO REPOSISTION PT WITH CENTRAL STERILE SUPPLY TECHNICIAN HELP - MARLENA AREA CLEANED WITH BARRIER WIPES. ALLYVN ON COCCYX IN PLACE. ATTENDS SOILED WITH URINE, PUREWICK REPLACED BUT HAS NOT DRAINED ANY URINE OF YET. MULTIPLE REDDENED AREAS ON BACK AND HIPS, ALL BLANCHABLE. SKIN DRY - BARRIER WIPE USED. PT REPOSITIONED TO LEFT SIDE WITH PILLOWS. DENIES PAIN OR FURTHER NEEDS. HEEL PROTECTORS ON.
--- NOTE | 2021-11-19 13:01 | NUR ---
RN IN ROOM TO ASSESS PT - PT RESTING IN BED AND WAKES EASILY WITH TOUCH AND VOICE. PT REPOSITIONED IN BED. MEDS ADMINISTERED THROUGH FEEDING TUBE WITHOUT DIFFICULTY WITH 200ML FREE FLUID. TUBE AND BAG CHANGED PER 24H GUIDLINE. HEEL PROTECTORS IN PLACE.
--- NOTE | 2021-11-19 15:04 | NUR ---
MD NOTIFIED OF CHANGE IN PT RESPIRATORY STATUS - RATE 34 PER MINUTE WITH MOIST LUNG SOUNDS, PT UNABLE TO INITIATE STRONG COUGH REFLEX UPON COMMAND. SP02 93% ON ROOM AIR. MD ALSO NOTIFIED OF PTS DECREASED URINE OUTPUT - ATTENDS CURRENTLY DRY WITH 100ML IN SUCTION CANISTER. PT REPOSISTIONED UP IN BED. WILL CONTINUE TO MONITOR.
--- NOTE | 2021-11-19 15:49 | NUR ---
NEW ORDERS RECEIVED AND ACKNOWLEDGED - COMPLETE.
--- NOTE | 2021-11-19 16:47 | NUR ---
RN IN ROOM TO ASSESS PT - RR RATE STILL ELEVATED AT 30 HOWEVER PT WORK OF BREATHING APPEARS IMPROVED. PT SHAKES HER HEAD "YES" WHEN ASKED IF SHE IS COMFORTABLE. NO URINE OUT PUT NOTED IN SUCTION CANISTER YET.
--- NOTE | 2021-11-19 18:28 | NUR ---
RN IN ROOM TO REPOSISTION PT - INC IN ATTENDS, FULL LINEN CHANGE WITH MARLENA CARE. NEW PUREWICK PUT IN PLACE. PT REPOSITIONED TO HER LEFT SIDE WITH PILLOWS. MEDICATIONS ADMINISTERED IN FEEDING TUBE WITH 200ML FLUSH. PT DENIES FURTHER NEEDS WITH HEAD SHAKE "NO". SON AT BEDSIDE.
--- NOTE | 2021-11-19 21:37 | NUR ---
Pt drowsy, mumbled speech, on room air, lungs dim at bases fine crackles auscultated,. no cough R nare NGT infusing Jevity patent. free water infused as per orders after meds. L stoma with scant amount of liquid bm. natalie, purewick in place. red skin issues over arms and under stoma bag present, Desenex powder applied. turned and repositionined, coop. hob elevated as per orders. L portacath flushed, patent. SL patent. cooperative with assessment, oral care done, NPO. call light at hands reach, and bed alarm on
--- NOTE | 2021-11-19 23:33 | NUR ---
resting, on room air, NGT/TF infusing w/o problems, lien, hob elevated. bed alarm on, call light at hands reach
--- NOTE | 2021-11-20 00:01 | NUR ---
Resting, eyes closed, hob elevated as per orders, NGT /TF patent. turned and respositioned. call light at hands reach
--- NOTE | 2021-11-20 02:00 | NUR ---
HOB ELEVATED, TURNED AND REPOSITIONED. ORAL CARE DONE BY SELF. AWAKES EASILY. IVF INFUSING W/O PROBLEMS. PUREWICK IN PLACE. STOMA PATENT
--- NOTE | 2021-11-20 04:36 | NUR ---
PT HOB ELEVATED PER ORDERS. ON ROOM AIR, LUNGS DIM AT BASES, FINE CRACKLES BILAT. OCC MOIST NON PROD COUGH PRESENT. R NARE NGT/TF INFUSING JEVITY 1.2CAL AT 60CC/HR. npo. MARIUSZ. WELL. FLUSHES WELL, 2SL BOTH LE/FEE PATENT. R PORTACATH PATENT. L STOMA DRAINING SMALL AMOUNT LIQUID STOOL. PURWICK IN PLACE, PATENT, DRAINING MEDIUM YELLOW URINE. RED AREAS R ELBOW AND UNDER STOMA MORENO NO CHANGES. PT CONT TO HAVE SLURRED/UNCOMPREHENSIBLE SPEECH. ORAL CARE DONE BY SELF AND THIS RN COOPERATIVE, TURNED AND REPOSITIONED EVERY 2 HOURS. CALL LIGHT AT BEDSIDE,
--- NOTE | 2021-11-20 07:58 | NUR ---
TO PT ROOM FOR MORNING ASSESSMENT AND MEDICATION ADMINISTRATION. PT IS NONVERBAL ATT. NODDING HEAD YES AND NO TO ANSWER QUESTION. FOLLOWING COMMANDS APPROPRIATLY. PUREWICK IN PLACE. NG TUBE WITH CONINUOUS TF AT 60ML/HR. CALL LIGHT WHTIN REACH.
--- NOTE | 2021-11-20 08:57 | NUR ---
MEDICATION ADMINISTERED. VS WNL. 5ML RESIDUAL TO NG TUBE. FLUSHED WITH 200ML WATER. PT TOLERATED WELL.
--- NOTE | 2021-11-20 10:57 | NUR ---
PT C/O FEELING COLD. THERMOMETER TURNED UP AND GIVEN WARM BLANKET. FAMILY AT BEDSIDE. TUBE FEEDING RUNNING. CALL LIGHT WITHIN REACH.
--- NOTE | 2021-11-20 12:12 | NUR ---
TO PT ROOM FOR MEDICATION ADMINISTRATION. PT IS ALERT BUT NONVERBAL ATT. RESPIRATIONS EVEN AND REGULAR. CALL LIGHT WITHIN REACH.
--- NOTE | 2021-11-20 13:16 | NUR ---
PATIENT HAS NG TUBE FEEDINGS CONTINUOUSLY WITH JEVITY 1.2 AT GOAL RATE OF 60 ML/HR. SHE IS RECEIVING 200 ML FREE WATER FLUSHES EVERY 6 HOURS. TUBE FEEDING IS PROVIDING 1728 CALORIES, 80 GM PROTEIN, AND 1,160 ML WATER PER 24 HOURS IF RUNNING NON-STOP. PATIENT IS TOLERATING TF WELL, NO ABD DISTENTION, DIARRHEA, OR NAUSEA. NO CHANGES NEEDED AT THIS TIME. WILL CONTINUE TO MONITOR.
--- NOTE | 2021-11-20 14:40 | NUR ---
PT HAS LARGE REDDENED AREA TO RIGHT HIP/SIDE. AREA IS BLANCHABLE, NO OPEN AREAS NOTED. PT DENIES PAIN AT SITE. TF BAG CHANGED. TUBE FEEDINGS RUNNING CONTINUOUS.
--- NOTE | 2021-11-20 15:18 | NUR ---
RETURNED CALL TO PATIENT ISIDRO. ISIDRO STATES THAT HE WAS CONTACTED BY HOSPICE THIS MORNING AND HAD SOME QUESTIONS. HE STATES THAT HE WAS TOLD BY HOSPICE THAT TUBE FEEDINGS WOULD BE STOPPED WHEN THE PATIENT WAS PLACED ON SERVICES. EXPLAIN TO PATIENT THAT THE GOAL OF HOSPICE TO ONLY TO PROVIDE CARE THAT MAKE THE PATIENT ACUTELY COMFORTABLE. I EXPLAINED THAT WHEN HOSPICE SERVICES WERE STARTED ALL CARE THAT DOES NOT MAKE THE PATIENT ACUTELY COMFORTABLE AT HOME WILL BE WITHDRAWN. I ALSO EXPLAINED THAT IN THE FUTURE THE CAREGIVER WOULD CONTACT THE [facility] RN FOR THE PATIENTS NEEDS, NOT PRESENT TO THE ER. ISIDRO STATES "SO BASICALLY SHE IS DYING." DISCUSSED THAT THE PATIENTS DIAGNOSIS IS END STAGE/END OF LIFE AND THE GOAL IS FOR THE PATIENT TO AT HOME WITH HER FAMILY. ISIDRO BECOMES FRUSTRATING STATES THAT "THE HOSPITAL HAS NEVER TOLD US THAT. THEY KEEP SAYING SHE IS GETTING BETTER, BUT SHE'S REALLY FUCKING DIEING." I APOLOGIZED THAT THIS WAS NOT CONVAYED TO HIM UP FRONT, BUT IT WAS DISCUSSED WITH THE PATIENT AND THESE ARE HE WISHES. I DISCUSSED WITH ISIDRO THE OPTION OF PALLIATIVE CARE OR CONTINUING FULL TREATMENT, BUT THAT HOSPICE WAS THE PATIENTS WISHES AND WE ARE TRYING TO RESPECT THEM. 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 ISIDRO STATES THAT HE HAS ONLY SPOKEN TO ONE OF HIS CHILDREN AND WOULD NEED TO SPEAK WITH THE OTHERS. ISIDRO ALSO MENTIONS THAT THE FAMILY RECENTLY LOST A SON. I LET ISIDRO KNOW THAT I AM HERE TO FACILITATE ANY DECISION THE PATIENT AND FAMILY DECIDES UPON AND TO CONTACT US AT ANY TIME. PATIENTS IS AWARE THAT PATIENT IS SCHEDULE TO MEET WITH LUCINDA ON TUESDAY @ 11OO AM.
--- NOTE | 2021-11-20 16:30 | NUR ---
TO PT ROOM FOR MEDICATION ADMINISTRATION. NG TUBE RUNNING CONTINUOUS. PT IS SLEEPING ATT.
--- NOTE | 2021-11-20 18:24 | NUR ---
PATIENT LYING IN BED WATCHING TV. PATIENT READJUSTED, PUREWICK CHECKED, AND OSTEMY BAG EMPTIED. VITALS AND I/O'S COMPLETED. NO OTHER NEEDS AT THIS TIME, CALL LIGHT IS WITHIN REACH.
--- NOTE | 2021-11-20 22:41 | NUR ---
PT IS STATING HUNGER, UNABLE TO PROVIDE ANY FOOD AT THIS TIME
--- NOTE | 2021-11-20 23:20 | NUR ---
RESTING, ON ROOM AIR, LUNGS CLEAR DIM AT BASES, NO COUGH, HOB ELEVATED PER ODERS, ASPIRATION PRECAUTIONS IN PLACE. EYES CLOSED. NO DISTRESS, R NARE NGT/TF PATENT, INFUSING JEVITY 1.2 ANIL AT 60CC/HR, PURWICK IN PLACE, PATENT, L STOMA DRAINING, PATENT. RASH OVER L UPPER SHOULDER AREA ABOVE PORTACATH HELAING, RED/EDEMATOUS AREA OVER BILAT ELBOWS HEALING, ELBOW PROTECTORS IN PLACE. R PORTACATH PRESENT, PATENT. RASH OVER R HIP AND L HIP UNDER STAMA BAG HESLING, DESENEX POWDER APPLIED, ATTEND SIN PLAC. EDEMAM TO L FOOT PRESENT TRACE. HEEL PROTECTORS IN PLACE. ELEVATED. SPEECH MORE CLEAR, USING CALL LIGHT, MORE ALERT AT TIMES, CURRENTLY RESTING EYES CLOSED, NO C/O PAIN, C/O 'SERA HUNGRY' SEVERAL TIMES, DOES OWN ORAL CARE USING LEMON SWABS. INSTRUCTED ON TF AND PRECAUTIONS, GOES BACK TO SLEEP. TURNED AND REPOSITIONED. CALL LIGHT AND ORAL SWABS AT HANDS REACH
--- NOTE | 2021-11-21 00:32 | NUR ---
ORAL SWAB WITH COOL WATER TO HELP PT WITH DRY MOUTH FEELING, PT TOLERATING CARE, ENCURAGED PT TO "HANG IN THERE," "WE'RE GETTING STRONGER AND SOON HOPEFULLY ORAL INTAKE WILL BE APPROVED,"
--- NOTE | 2021-11-21 00:37 | NUR ---
PT AWAKE, USED CALL LIGHT NGT/TF INFUSING. CONTINUES TO ASK FOR WATER AND TO HAVE SOMETHING TO EAT, INSTRUCTED THAT MD WILL REASSESS IN AM SHE IS MORE ALERT. STAED "CANCEL THE DOCOTR, I DONT WANT TO SEE A DOCTOR". THEN GOES BACK TO SLEEP. HOB ELEVATED. CALL LIGHT AT HANDS REACH, PURWICK IN PLACE
--- NOTE | 2021-11-21 02:16 | NUR ---
BOOSTED WITH RN, PUREWICK PLACEMENT CHECKED BY RN THIS LACQUER DIPPING MACHINE OPERATOR EMPTIED OSTOMY, WARM BLANKET PROVIDED, NO FURTHER NEEDS AT THIS TIME
--- NOTE | 2021-11-21 05:55 | NUR ---
PT ON ROOM AIR,CLEAR LUNGS, OCC NON PRODUCTIVE COUGH PRESENT. R NGT/TF PATENT, INFUSING JEVITY 1.2CAL AT 60CC. PLUS FREE WATER EVERY 4H. PT DOES OWN MOUTH CARE. CONTINUES TO STATE THAT SHE IS HUNGRY AND WANTS TO EAT AND DRINK FLUIDS. WILL NOTIFY MD. PT SPEECH MUCH CLEARER AND NORMAL CONVERSATION, FLAT AFFECT, LETS HER NEEDS KNOW. HOB ELEVATED PER ORDERS, ASPIRATIN PRECAUTIONS INPLACE. ABD SOFT MALOU, L STOMA INPLACE, PATENT. PURWICK IN PLACE, DRAINING DARK YELLOW URINE QS. BRUISING ELBOWS, HIPS, L FRONT UPPER CHEST, UNDER STOMA BAG HEALING. DESENEX POWDER APPLIED, HEEL AND ELBOW PROTECTORS IN PLACE USES CALL LIGHT. NO C/O PAIN STATED. L PORTACATH IN PLACE PATENT,
--- NOTE | 2021-11-21 06:24 | NUR ---
turned and repositioned, inc of urine, pur wick in place, replaced at this time. skinc are, fresh attends ,
--- NOTE | 2021-11-21 07:19 | NUR ---
REPORT RECEIVED FROM LUKASZ DUMONT. PT RESTING IN BED, SUPPORTED WITH PILLOWS, IN SEMI PARDO POSITION WITH HEAD OF BED ELEVATED TO 37 DEGREES. EYES CLOSED, RESPIRATIONS EVEN AND UNLABORED. BED RAILS UP. CALL LIGHT WITHIN REACH. PT ALLOWED TO REST.
--- NOTE | 2021-11-21 07:34 | NUR ---
MORNING ASSESSMENT AND MEDICATION DUE. PT RESTING IN BED, AWAKE AND ALERT, WATCHING TV. PT REQUESTS "MY PEPCID." PT REPORTS FEELING "PRETTY GOOD." PT DENIES PAIN AND NAUSEA. PT OREINTED TO ALL INCLUDING MONTH AND YEAR AND WHY SHE IS AT THE HOSPITAL. PT RESPONDS APPORPIRATLY TO QUESTIONS. PORT ASSESSED, WNL. BRISK BLOOD RETURN NOTED. PORT FLUSHED AND HEPARIN LOCKED PER PROTOCOL. ALCOHOL CAP APPLIED. PT AFECT IS FLAT ALTHOUGH PT DOES FOLLOW DIRECTIONS AND RESPOND TO QUESTIONS. PT OFFERED TIME OUT OF BED AND UP TO CHAIR. PT DECLINES. PT ASSISTS WITH REPOSITIONING TO RIGHT SIDE, SUPPORTED WITH PILLOWS. HEAD OF BED ELEVATED TO 45 DEGREES PER MD ORDER. LUNG SOUNDS CLEAR. OCCATIONAL COUGH HEARD, NON PRODUCTIVE. HEART TONES REGULAR, MILD TACHYCARDIA NOTED WITH HR IN THE 90'S. +1 EDEMA CONTINUES IN BILATERAL FEET AND ANKLES. ABDOMEN SOFT, PT DENIES ABDOMINAL PAIN. ILLEOSTOMY WNL WITH PINK STOMA SEEN AND LIGHT BROWN SOFT STOOL IN BAG. SKIN INTACT AROUND OSTOMY SITE. FEEDING TUBE REMAINS IN PLACE, INFUSUING AT 60ML/HR. ADDITIONAL JEVITY 1.5 ADDED TO FEEDING BAG. FEEDING PAUSED FOR MEDICATION ADMINISTRATION, 20ML RESIDUAL OBTAINED FROM STOMACH. MEDIACTION GIVEN PER TUBE (SEE MAR). LINE FLUSHED WITH 200ML TAP WATER AND FEEDING RESTARTED. PT TOELRATED WELL WITHOUT NASUEA. PURE WICK EXTERNAL CATETHETER REMAINS IN PLACE WITH LIGHT YELLOW URINE NOTED IN CANISTER. ALLEVYN REMAINS IN PLACE OVER COCCYX. HEEL PROTECTORS IN PLACE OVER HEELS AND ELBOWS. PT SUPPORTED WITH PILLOWS AND REPORTS FEELING COMFORTABLE. NO ADDITONAL NEEDS AT THIS TIME. CALL LIGHT WITHIN REACH. BED RAILS UP.
--- NOTE | 2021-11-21 08:10 | NUR ---
PATIENT RESTING IN BED. REFUSED REPOSITION AND WASHCLOTH. NO OTHER NEEDS AT THIS TIME. CALL LIGHT WITHIN REACH.
--- NOTE | 2021-11-21 08:51 | NUR ---
PATIENT READJUSTED IN BED. FLOATING TOWARDS LEFT SIDE. OSTEMY BURPED,(NOT ENOUGH TO EMPTY). PURE WICK BACK IN PLACE. NO OTHER NEEDS AT THIS TIME, CALL LIGHT WITHIN REACH.
--- NOTE | 2021-11-21 09:06 | NUR ---
THIS RN TO ROOM TO CHECK ON PT. PT REPOSITIONED TO SEMIFOWEL POSITION ON BACK. HEAD OF BED REMAINS ELEVATED TO 45 DEGREES. PT DENIES PAIN AND NAUSEA. PT REPORTS FEELING COMFORTABLE. VITAL SIGNS STABLE. BED RAILS UP. CALL LIGHT WITHIN REACH. PT DENIES ADDITIONAL REQUESTS OR COMPLAINTS.
--- NOTE | 2021-11-21 10:03 | NUR ---
PATIENT VITALS AND I/O'S PUT IN BY NURSE ELIF, NO OTHER NEEDS AT THIS TIME. CALL LIGHT WITHIN REACH.
--- NOTE | 2021-11-21 10:11 | NUR ---
PT CALL LIGHT ON. PT REQUESTS "MY FREE WATER." THIS RN TO ROOM. PT ADVISED THAT SHE ALREADY HAD HER WATER THIS MORNING. PT STATES SHE DOESN'T REMEMBER THIS HAPPENING. PT DENIES NEED FOR ADDITIONAL WATER. ADDITIONLA CARTON OF JEVITY 1.5 ADDED TO FEEDING BAG. FEEDING TUBE CONTINUES INFUSING AT RATE OF 60ML/HR. PT BOOSTED IN BED AND REPOSITIONED TO LEFT SIDE PER HER REQUEST. NO ADDITIONAL NEEDS AT THIS TIME. CALL LIGHT WITHIN REACH. BED RAILS UP.
--- NOTE | 2021-11-21 11:09 | NUR ---
PTS , ISIDRO, ARRIVED. ISIDRO UPDATED ON PT STATUS AND REPORTS HE HAS NO QUESTIONS AT THIS TIME. DR. ANGUIANO IN TO CONFERENCE WITH ISIDRO ABOUT PLAN OF CARE AND PT WISHES. ISIDRO VERBALLY AGRESSIVE "YOU HAVEN'T DONE FUCKING ANYTHING." AND "SOMEONE SHOULD BE SORRY!" SECURITY CALLED TO ROOMSIDE. PHSYICAL THERAPY WORKING WITH PT AND ISIDRO TELLS THEM TO LEAVE. ISIDRO VISITING WITH ABOUT HER WISHES STATING "SHE WANTS HOSPITCE BUT NONE OF US DO." ISIDRO GIVEN TIME ALONE WITH PT TO DISCUSS PLAN OF CARE.
--- NOTE | 2021-11-21 11:20 | NUR ---
PTS ISIDRO LEAVING THE HOSPITAL AT THIS TIME. STATES HE SPOKE WITH PT AND SHE WOULD LIKE TO LEAVE THE FEEDING TUBE IN PLACE UPON DISCHARGE. DR. ANGUIANO UPDATED. NO ADDITIONAL NEEDS AT THIS TIME. BED RAILS UP. CALL LIGHT WITHIN REACH.
--- NOTE | 2021-11-21 12:10 | NUR ---
MEDICATION DUE. THIS RN TO ROOM. PT CONTINUES RESTING ON LEFT SIDE, SUPPORTED WITH PILLOWS. FEEDIGN TUBE RESIDUAL CHECKED = ~10ML, RETURNED TO STOMACH. MEDICATION GIVEN THROUGH FEEDING TUBE, AND FLUSHED 200 ML OF TAP WATER. PT ENCORUAGED TO BE TURNED TO RIGHT SIDE AT THIS TIME. PT DECLINES STATING SHE IS "COMFOTABLE LIKE THIS." EDUCATION DONE, PT CONTINUES TO DECLINE TURNING/ROTATING POSITION. NO ADDITIONAL NEEDS AT THIS TIME. BED RAILS UP. CALL LIGHT WITHIN REACH.
--- NOTE | 2021-11-21 13:27 | NUR ---
NECKTIE TURNER'S WORKING WITH PT FOR PURE WICK, EXTERNAL CATHETER SYSTEM CHANGE, BED BATH AND REPOSITIONING. OSTOMY BAG CAME LOOSE WITH REPOSITIOING. SKIN ARROUND STOMA RAW AND EXFOLIATED WITH SMALL AMOUNT OF RED DRANAGE NOTED ABOUT 1.5 CM CIRCUMFRENTIAL ARROUND STOMA. STOMA POWDER APPLIED. PHOTOGRAPHS TAKEN. NEW OSTOMY BAG APPLIED PER PROTOCOL. PT TOLEARTED PROCEEDURE WELL. NECKTIE TURNER'S CONTINUE WORKING WITH PT MENTIONED ABOVE. NO ADDITIONAL NEEDS AT THIS TIME. CALL LIGHT WITHIN REACH. BED RAILS UP.
--- NOTE | 2021-11-21 14:05 | NUR ---
PATIENT IN BED, REPOSTIONED OFF OF LEFT SIDE. NEW PURE WICK PUT IN PLACE. VITALS AND I/O'S COMPLETED. NO OTHER NEEDS AT THIS TIME. CALL LIGHT WITHIN REACH.
--- NOTE | 2021-11-21 14:22 | NUR ---
AFTERNOON ASSESSMENT DUE. PT RESTING ON RIGHT SIDE IN BED WITH HEAD OF BED ELEVATED TO 45 DEGREES. PT RESTING WITH EYES CLOSED. PT AWAKENS TO VOICE AND LIGHT TOUCH. PT DENIES PAIN AND NAUSEA. PT OREINTED TO ALL AT THIS TIME AND FOLLOWING DIRECTIONS. PT ASKED TO VERBALIZE PLAN OF CARE AND PT STATES "THAT DOCTOR IS WES A BITCH." PT REFUSES TO CLARIFY WHAT SHE MEANS BY THIS STATEMENT. PT STATES ALL HER WISHES ARE BEING MET AND ATTENDED TO AND CONTIUES TO REFUSE TO CLARIFY. WEAKNESS CONTINUES. FLAT AFFECT CONTINUES. PT ANSWERS QUESTIONS WITH MINIMAL WORDS. PT CONTINUES TO STATES SHE WOULD LIKE NG TUBE LEFT IN PLACE. LUGN SOUNDS CLEAR. OCCATIONAL COUGH CONTINUES. OXYGEN SATURATION REMAINS AT 94% ON ROOM AIR. HEART TONES REGULAR, HEART RATE IN 80'S. EDEMA UNCHANGED. SKIN CONDITION AND WOUNDS UNCHANGED. ABDOMEN REMAINS SOFT. BOWEL TONES ACTIVE. OSTOMY BAG REMAINS C/D/I AND WNL. PINK STOMA NOTED. NG FEEDING TUBE REMAINS IN PLACE, WNL, INFUSING AT 60ML/HR. PURE WICK EXTERNAL FEMAL CATEHETER REMAINS IN PLACE WITH YELLOW URINE IN CANISTER. DEPENDS IN PLACE. HEEL PROTECTORS IN PLACE OVER HEELS AND ELBOWS. PT DENIES ADDITIONAL REQUESTS OR COMPLAINTS. CALL LIGHT WITHIN REACH. BED RAILS UP.
--- NOTE | 2021-11-21 15:28 | NUR ---
THIS RN TO ROOM TO CHECK ON PT. DR. ANGUIANO FINISHING CONVERSATION WITH DOCTOR. NEW ORDERS PLACED. PT CONTINUES TO STATE "SHE IS A SON OF A BITCH." PT ASKED TO CLARIFY AND STATES "YOU ALL ARE MAKING MOVES OUT THERE." PT UNABLE TO OTHERWISE CLARIFY BUT CONTINUES MAKING STATEMENTS THAT DO NOT FIT SITUATION. ICE CHIPS PROVIDED PER MD ORDER, PT TOLERATES WELL. SIPS OF APPLE JUICE PROVIDED. NO ADDITIONAL NEEDS AT THIS TIME. CALL LIGHT WITHIN REACH. BED RAILS UP.
--- NOTE | 2021-11-21 16:16 | NUR ---
THIS RN TO ROOM TO CHECK ON PT. MEDICATIONS DUE. PT SIPPING ON JUICE AND EATING ICE CHIPS. PT DENIES NAUSEA. NO ADDITONAL COUGHING OR THROAT CLEARNING NOTED. PT REPOSITIONED TO SEMIFLOWER POSITION ON BACK WITH HEAD OF BED ELEVATED TO 45 DEGREES. NG/FEEDING TUBE ASSESSED, WNL, 10ML RESIDUAL NOTED AND RETURNED TO STOMACH. KANGAROO PUMP TUBING CHANED WITH NEW JEVITY 1.2 IN BAG. MEDICATIONS GIVEN PER TUBE BY GRAVITY. 200ML TAP WATER GIVEN. PT DENIES PAIN AND NAUSEA. NO ADDITIONAL NEEDS AT THIS TIME. CALL LIGHT WITHIN [facility]. BED RAILS UP.
--- NOTE | 2021-11-21 16:38 | NUR ---
PT HERE FOR SEPSIS RELATED TO UTI. PT REMAINS ON BED REST THROUGHOUT SHIFT, DECLINES ANY OFFERS TO GET UP TO CHAIR. Q2 TURNS AND SUPPORTED WITH PILLOWS THROUGHOUT SHIFT. HEAD OF BED ELEVATED TO 45 DEGREES THROUGHOUT SHIFT. TUBE FEEDING, JEVITY 1.2, CONTINUES AT 60ML/HR, NEW BAG HUNG. MINIMAL RESIDUALS NOTED. FREE WATER GIVEN X3 THIS SHIFT. NEW ORDER FOR PT TO HAVE ICE CHIPS AND CLEARS TO SIP ON FOR COMFORT. PT TOLERATING WELL. PT DENIES PAIN AND NAUSEA THROUGHOUT SHIFT. OSTOMBY BAG LOOSE THIS SHIF AND CHANGED PER PROTOCOL. SKIN UNDER OSTOMY SITE RAW AND EXCORIATED, OSTOMY POWDER APPLIED, NEW BAG IN PLACE. PURE WICK CATHETER IN PLACE, QUANTITY SUFFICIENT. ALLEVYN REMAINS OVER COCCYX, C/D/I. PORT A CATH WNL WITH BRISK BLOOD RETURN NOTED, HEAPRIN LOCKED. PT OREINTED TO ALL THIS SIFT BUT OCCATIONALLY CONFUSED WITH STATEMENTS THAT DO NOT FIT CONVERSATION. PT DOES NOT USE CALL LIGHT CONSISTANTLY. HOURLY ROUNDING PERFORMED TO MEET PTS NEEDS.
--- NOTE | 2021-11-21 17:25 | NUR ---
THIS RN TO ROOM TO CHECK ON PT. ADDITIONAL VOLUME ADDED TO KANGAROO PUMP. PT DENIES PAIN AND NAUSEA. PT REPORTS BASEBALL GAME ON TV IS "BORING" BUT REFUSES TO HAVE CHANNEL CHANGED. PT DENIES ADDITIONAL REQUESTS OR COMPLAINTS. CALL LIGHT WITHIN REACH. BED RAILS UP.
--- NOTE | 2021-11-21 18:33 | NUR ---
THIS RN TO ROOM TO CHECK ON PT. PT REPOSITIONED TO LEFT SIDE SUPPORTED WITH PILLOWS. PT REPORTS ACHING PAIN "ALL OVER." PT DOES NOT RATE PAIN. PT DECLINES TYELNOL. PT DENIES NAUSEA. PT REQUESTS A BREATHING TREATEMENT BECUASE "MY LUNGS RE GURGLING." UPPER AIRWAY CONGESTION HEARD WITH CORSE UPPER LOBE LUNG SOUNDS. LOWER LOBES REMAIN CLEAR. PT ENCOURAGED TO COUGH. WEAK COUGH NOTED AND PT INSISTS THAT SHE CANNOT COUGH AND WANTS A BREATHING TREATMENT. RT CALLED AND STATES THEY WILL COME WITH A BREATHING TREATMENT. NO ADDITIONAL REQUESTS OR COMPLAINTS. CALL LIGHT WITHIN REACH. BED RAILS UP.
--- NOTE | 2021-11-21 18:34 | NUR ---
PATIENT IN BED, NURSE ELIF HELPED THIS FIELD INTERVIEWER REPOSTION. PUREWICK STILL IN PLACE, NEW OSTOMY DID NOT NEED ATTENTION AT THIS TIME. SOME COMPLAINTS OF PAIN, NURSE NOTIFIED. NO OTHER NEEDS AT THIS TIME. CALL LIGHT WITHIN REACH.
--- NOTE | 2021-11-21 19:01 | NUR ---
RT TO BEDSIDE FOR BREATHING TREATMENT. MD UPDATED ON PT STATUS AND LUNG SOUNDS. NO NEW ORDERS AT THIS TIME. RT, SUNG, DISCUSSING PLAN OF CARE WITH DR. ANGUIANO. NO ADDITIONAL REQUESTS OR COMPLAINTS. CALL LIGHT WITHIN REACH.
--- NOTE | 2021-11-21 19:42 | NUR ---
REPORT RECEIVED FROM DAY SHIFT RN. PT LYING IN BED WATCHING TV. DENIES NEEDS. HOB ELEVATED. WHITE BOARD UPDATED. CALL LIGHT IN REACH.
--- NOTE | 2021-11-21 22:00 | NUR ---
EVENING ASSESSMENT COMPLETE. SCHEDULED MEDS ADMIN CRUSHED THROUGH NGT. PT REPORTS BACK PAIN 11/18. PRN FOR PAIN ADMIN. 2OO ML TAP WATER ADMIN THROUGH NGT PER ORDER. TUBE FEEDING INFUSING 60 ML/HR. PUREWICK REPLACED. MARLENA CARE DONE. 2PA TO REPOSITION IN BED WITH PILLOWS. HEEL PROTECTORS ON ELBOWS AND FEET IN PLACE. HOB 45 DEGREES. PT DENIES QUESTIONS OR CONCERNS. CALL LIGHT IN REACH.
--- NOTE | 2021-11-22 00:17 | NUR ---
KANGAROO PUMP ALARMING. JEVITY ADDED. PT AWAKE IN BED. REPOSITIONED WITH PILLOWS. AGREES SHE IS COMFORTABLE. DENIES NEEDS.
--- NOTE | 2021-11-22 01:49 | NUR ---
CALL LIGHT ANSWERED. 2PA TO REPOSITION WITH PILLOWS TO LEFT SIDE. 200 ML TAP WATER ADMIN THROUGH NGT. HOB ELEVATED. NO FURTHER NEEDS.
--- NOTE | 2021-11-22 04:08 | NUR ---
KANGAROO PUMP ALARMING. ISSUE RESOLVED. PT OSTOMY BAG HAD CAME LOOSE. LARGE AMOUNTS OF LIQUID/SOFT BM IN BED. SKIN CARE DONE. LINENS CHANGED. MARLENA CARE DONE AND CLEAN PUREWICK PLACED. NEW OSTOMY APPLIANCE PLACED BY GLASS MOLD REPAIRER. SKIN UNDER APPLIANCE EXCORIATED AND BLEEDING. STOMA POWDER USED. 2PA TO REPOSITION IN BED WITH PILLOWS. HEEL PROTECTORS IN PLACE. HOB ELEVATED. NO FURTHER NEEDS.
--- NOTE | 2021-11-22 06:51 | NUR ---
MORNING LABS DRAWN THROUGH LEFT CHEST PORT PER PROTOCOL. SITE WNL. VS AND I&O COMPLETE. 2PA TO REPOSITION WITH PILLOWS. PT DENIES FURTHER NEEDS. CALL LIGHT IN REACH.
--- NOTE | 2021-11-22 07:00 | NUR ---
BEDSIDE HANDOFF REPORT RECIEVED FROM PUTTY AND PATCH WORKER. PT RESTING IN BED, PT DENIES NEEDS AT THIS TIME.
--- NOTE | 2021-11-22 07:21 | NUR ---
PT CALLED, REQUESTING BREATHING TREATMENT. LUNG SOUNDS ASSESSED, RHONCHI THROUGHOUT, IMPROVED WITH COUGH, PT STATES SHE "FEELS TIGHT". RT CALLED AND WILL COME TO DO NEB.
--- NOTE | 2021-11-22 08:30 | NUR ---
PT RESTING IN BED. LUNG SOUNDS WITH RHONCHI, LOOSE COUGH, ON ROOM AIR, STATES BREATHING FEELS BETTER AFTER NEB. BOWEL TONES ACTIVE, NG TUBE IN PLACE, DENIES NAUSEA. LEFT CHEST PORT HEP LOCKED, DRESSING INTACT. PT INCONTINENT, PUREWICK IN PLACE. CMS INTACT, TRACE EDEMA IN BILAT FEET. PT REPOSITIONED TO RIGHT SIDE. MEDICATIONS GIVEN VIA NG TUBE, GIVEN 200 ML FREE WATER PER ORDER. PT PROVIDED WITH WARM BLANKET AND DENIES OTHER NEEDS AT THIS TIME.
--- NOTE | 2021-11-22 09:48 | NUR ---
PT REPOSITIONED TO BACK. DENIES OTHER NEEDS AT THIS TIME.
--- NOTE | 2021-11-22 10:03 | NUR ---
LEFT PORT FLUSHED, WITH BLOOD RETURN, HEP LOCKED. ADDTIONAL JEVITY 1.2 ADDED TO TUBE FEED BAG. PT DENIES OTHER NEEDS AT THIS TIME.
--- NOTE | 2021-11-22 12:41 | NUR ---
PT GIVEN MEDS AND 200 ML OF FREE WATER VIE NG TUBE, TUBE FEEDS RESUMED AT 60ML/HR. PURE WICK CATHETER CHANGED PER POLICY. PT REPOSITIONED. PT DECLINING TO WORK WITH P.T. PT DENIES OTHER NEEDS AT THIS TIME.
--- NOTE | 2021-11-22 13:42 | NUR ---
PATIENT IN BED RESTING AT THIS TIME. VITALS AND I&O'S CHARTED. CALL LIGHT IN REACH. NO FURTHER NEEDS AT THIS TIME.
--- NOTE | 2021-11-22 15:09 | NUR ---
TUBE FEETING SET CHANGED PER PROTOCOL, CONTINUED AT 60ML/HR OF JEVITY 1.2 WITH FIBER. PT DENIES OTHER NEEDS AT THIS TIME.
--- NOTE | 2021-11-22 17:15 | NUR ---
ILEOSTOMY WITH LEAK UNDER APPLIANCE, REMOVED. SKIN CLEANSED, EXCORIATED AROUND THE STOMA, SOME AREAS WITH BLEEDING. SKIN CLEANSED AND STOMA POWDER AND SKIN PROTECTANT APPLIED. NEW APPLIANCE APPLIED. MEDS AND FREE WATER GIVEN VIA NG TUBE. PT REPOSITIONED. PT DENIES OTHER NEEDS AT THIS TIME.
--- NOTE | 2021-11-22 19:16 | NUR ---
REPORT RECEIVED FROM DAY SHIFT RN. PT LYING IN BED WATCHING TV. DENIES NEEDS. WHITE BOARD UPDATED. CALL LIGHT IN REACH.
--- NOTE | 2021-11-22 23:20 | NUR ---
EVENING ASSESSMENT COMPLETE. SCHEDULED MEDS ADMIN THROUGH NGT PER ORDER. 200 ML FREE WATER GIVEN, TUBE FEEDING RESUMED AT 60 ML/HR. PT DENIES PAIN OR NAUSEA. 2PA TO REPOSITION IN BED. NEW PUREWICK IN PLACE. OSTOMY APPLIANCE INTACT WITH SCANT AMOUNT BROWN DRAINAGE. DRESSING TO GLUTEAL AREA CDI. ALLEVYN PLACED ON SPINE, RIGHT HIP, AND RIGHT ELBOW DUE TO REDNESS AND SHEARING. ALL AREAS BLANCHABLE. HEEL PROTECTORS APPLIED TO BILAT FEET AND ELBOWS. HOB ELEVATED. LEFT PORT FLUSHED WITH NS AND HEP LOCKED PER PROTOCOL. BRISK BLOOD RETURN NOTED. SITE WNL. PT DENIES FURTHER NEEDS. CALL LIGHT IN REACH.
--- NOTE | 2021-11-22 23:45 | NUR ---
CALL LIGHT ANSWERED. PT REQUESTING ASSISTANCE WITH THE TV. REPOSITIONED WITH PILLOWS. HOB ELEVATED. NO FURTHER NEEDS.
--- NOTE | 2021-11-23 01:58 | NUR ---
200 ML FREE WATER GIVEN THROUGH NGT PER ORDER. PT MARIUSZ WELL. PT INCONTINENT OF URINE AROUND PUREWICK. MARLENA CARE DONE. CLEAN ATTENDS PLACED. PT REPOSITIONED WITH PILLOWS. ATTEMPTED TO ASSIST PT WITH ORAL CARE, PT REFUSED. HOB ELEVATED. NO FURTHER NEEDS. CALL LIGHT IN REACH.
--- NOTE | 2021-11-23 04:56 | NUR ---
IN TO ROUND ON PT. NOTED OSTOMY APPLIANCE HAD COME OFF WITH LARGE AMOUNT LIQUID/SOFT STOOL. SKIN UNDER APPLIANCE EXCORIATED AND BLEEDING IN AREAS. SKIN CLEANED AND BARRIER SPRAY USED. NEW APPLIANCE PLACED. LINENS CHANGED. CLEAN BRIEF AND NEW PUREWICK IN PLACE. PT REPOSITIONED WITH PILLOWS. HOB ELEVATED. NO FURTHER NEEDS AT THIS TIME.
--- NOTE | 2021-11-23 06:40 | NUR ---
VS AND I&O COMPLETE. MORNING LABS DRAWN FROM PORT PER ORDER. 2OO ML FREE WATER GIVEN THROUGH NGT. SCHEDULED MEDS ADMIN PER EMAR THROUGH NGT. TUBE FEEDING RESUMED AT 60 ML/HR. HOB ELEVATED. WARM BLANKET PROVIDED. NO FURTHER NEEDS. CALL LIGHT IN REACH.
--- NOTE | 2021-11-23 07:30 | NUR ---
THIS RN RECEIVED SHIFT REPORT FROM LUKASZ CLEMENS. PATIENT RESWTING QUIETLY IN BED WITH HOB AT 45 DEGREES, RESPIRATIONS SHALLOW AND EVEN, EYES CLOSED, CALL LIGHT IS IN REACH. PATIENT HAS NO NURSING CARE NEEDS AT THIS TIME.
--- NOTE | 2021-11-23 07:30 | NUR ---
RECVD CALL FROM ZOILA AT [facility]. ADVISED THAT PER MD NOTES PATIENT IS STILL TO DISCHARGE THIS AM. WILL UPDATE STAFF THAT PATIENT NEEDS TO BE HOME BY 11 AM FOR HOSPICE EVAL.
--- NOTE | 2021-11-23 08:05 | NUR ---
PT LAYING IN BED. PT REPOSITIONED TO R SIDE. NO FURTHER NEEDS AT THIS TIME. CALL LIGHT WITHIN REACH.
--- NOTE | 2021-11-23 08:15 | NUR ---
RECVD CALL FROM PATIENT ISIDRO CONFIRMING THAT PATIENT WILL BE RETURNING HOME TODAY. I ADVISED THAT THE PLAN WAS TO DISCHARGE IN ORDER FOR THE PATIENT TO MEET WITH HOSPICE. ISIDRO ASKING IF A HOSPITAL BED HAD BEEN ORDERED AND WILL BE DELIVERED PRIOR TO THE PATIENT RETURNING HOME. I ADVISED ISIDRO THAT WE HAD NOT ARRANGED FOR A BED HE WAS UNSURE ON TUESDAY IF HE WOULD BE ABLE TO TAKE CARE OF THE PATIENT AT HOME. PATIENT BECOMES UPSET STATING HE WILL OBVIOUSLY NEED A BED AND THAT "THE HOSPITAL HAS RUSHED THIS WHOLE PROCESS AND NOTHING HAS BEEN DONE RIGHT." I ADVISED ISIDRO THAT I WILL SPEAK WITH DR. ANGUIANO TO SEE IF A HOSPITAL BED CAN BE ORDERED. PATIENT GIVEN THE CHOICE TO TRANSPORT PATIENT HOME WITH TRANSFER ASSIST FROM THE STAFF OR NO EMERGANT TRANSFER CAN BE SET UP. PATIENT CHOOSE NO EMERGENT TRANSPORT. [id number] CALLED TO SPEAK WITH ZOILA AT [facility] REGARDING THE DELIVERY OF A BED. ZOILA STATES THAT SHE ARRANGED FOR A BED TO BE DELIVERED THIS AM PRIOR TO THE PATIENT DISCHARGE. ZOILA STATES SHE ADVISED THE OF THIS ON TUESDAY.
[2021-11-23] MEDS ORDERED: ONDANSETRON ODT4 MG PO (09:01)
[2021-11-23] MEDS ORDERED: ACETAMINOP160 MG/52 PT (09:02)
[2021-11-23] MEDS ORDERED: ZEGERID 20 MG1 EAC1 PT (09:05)
--- NOTE | 2021-11-23 10:26 | NUR ---
THIS RN IN TO SEE PATIENT AND AM ASSESSMENT COMPLETE AND PATIENT READY FOR DC. AWAITING NONEMERGENT BLS TRANSPORT. [facility] NEEDLE DC'D INTACT AFTER 20ML NS FLUSH AND 500UNIT HEPLOCK FLUSH. TF DC'D AND AM MEDS AND SCHEDULED FREE WATER GIVEN AND NG LOCKED UP. TEENAGE PROGRAM DIRECTOR'S HAVE JUST PLACED A NEW ATTENDS. PATIENT CHANDLER NO OTHER CARE NEEDS AT THIS TIME. CALL LIGHT IS IN REACH.
--- NOTE | 2021-11-23 10:37 | NUR ---
PATIENT DC'D TO HOME TO HOSPICE CARE VIA EMS NONEMERGENT TRANSPORT. DC PAPERS GIVEN TO TRANSPORT STAFF TO TAK HOME. VS STABLE ON DC.
== END 2021-11-23 10:37 | disposition home or self-care (01) | DRG 871 ==
LOC: ED 22:37 → MS 11-10 02:05 → CCU 11-10 02:05 → MS 11-16 20:52
PROVIDERS: ADMIT Internal Medicine; ATTEND Internal Medicine
PROC: 3E03329 Introduction of Other Anti-infective into Peripheral Vein, Percutaneous Approach (ICD-10-PCS; 2021-11-10)
PROC: 3E033XZ Introduction of Vasopressor into Peripheral Vein, Percutaneous Approach (ICD-10-PCS; 2021-11-10)
PROC: 30233N1 Transfusion of Nonautologous Red Blood Cells into Peripheral Vein, Percutaneous Approach (ICD-10-PCS; principal; 2021-11-14)
DX: A41.59 Other Gram-negative sepsis (principal); G93.41 Metabolic encephalopathy; N17.0 Acute kidney failure with tubular necrosis; R65.21 Severe sepsis with septic shock; N30.00 Acute cystitis without hematuria; E87.0 Hyperosmolality and hypernatremia; K50.90 Crohn's disease, unspecified, without complications; N17.9 Acute kidney failure, unspecified; R64 Cachexia; D84.9 Immunodeficiency, unspecified; Z66 Do not resuscitate; B96.1 Klebsiella pneumoniae [K. pneumoniae] as the cause of diseases classified elsewhere; E87.6 Hypokalemia; E83.51 Hypocalcemia; Z20.822 Contact with and (suspected) exposure to COVID-19; E83.42 Hypomagnesemia; G89.4 Chronic pain syndrome; F51.04 Psychophysiologic insomnia; Z79.01 Long term (current) use of anticoagulants; Z86.718 Personal history of other venous thrombosis and embolism; E86.1 Hypovolemia; Z88.5 Allergy status to narcotic agent; Z88.0 Allergy status to penicillin; Z88.8 Allergy status to other drugs, medicaments and biological substances; M81.0 Age-related osteoporosis without current pathological fracture; I10 Essential (primary) hypertension; Z90.49 Acquired absence of other specified parts of digestive tract; Z98.890 Other specified postprocedural states; Z90.710 Acquired absence of both cervix and uterus; Z79.899 Other long term (current) drug therapy; K21.9 Gastro-esophageal reflux disease without esophagitis; Z88.1 Allergy status to other antibiotic agents; D64.9 Anemia, unspecified
CPT/HCPCS: 36415; 36430; 51702; 70450; 71045; 74177; 80048; 80053; 80202; 81001; 82306; 82533; 82570; 83605; 83735; 83930; 83935; 84100; 84300; 84550; 85025; 85610; 85730; 86850; 86900; 86901; 86922; 87040; 87070; 87075; 87077; 87088; 87205; 87502; 93005; 93010; 94640; 94660; 94760; 94761; 97110; 97162; 99285-25; A9270; C9113; J0692; J0696; J0834; J1940; J2405; J2550; J3370; J3475; J3480; J7060; J7070; J7120; J7121; P9016; P9047; Q9967; U0003